=== PATIENT | male | born 1945 | race Caucasian/White ===

== ENCOUNTER → 2018-03-28 10:44 | Outpatient (CLI) | payer MEDICARE, OTHER, SELFPAY ==
[2018-03-28 12:22] LABS: Hematocrit 41.2 % (40-54); Mean Corp Hgb Conc 31.6 g/gl (32-36); Mean Corpuscular Hgb 28.7 pg (27.0-32.0); Mean Corpuscular Volume 90.9 fL (80-94); Platelet Count 163 K/mm3 (150-450); RBC Distribution Width CV 15.5 % (11.6-14.6); RBC Distribution Width SD 51.5 fl (35.1-43.9); Red Blood Count 4.53 M/mm3 (4.6-6.2); White Blood Count 7.1 K/mm3 (4.4-11.0)
[2018-03-28 12:27] LABS: Scan Indicated on CBC? Y/N NO
[2018-03-28 12:33] LABS: Albumin, Serum 3.5 g/dL (3.2-5.0); BUN 29 mg/dL (7-18); BUN/Creat Ratio 16.6 RATIO (10-20); Calcium,Total 8.9 mg/dL (8.5-10.1); Chloride 104 mmol/L (98-107); Creatinine, Serum 1.75 mg/dL (0.70-1.30); EST Glomerular Filtration Rate 41 mL/min (>60); Est Glom Filt Rate - Afr Amer 49 mL/min (>60); Glucose 273 mg/dL (74-106); Magnesium 1.9 mg/dL (1.6-2.6); Phosphorus 3.2 mg/dL (2.5-4.9); Potassium 4.8 mmol/L (3.5-5.1); Sodium Level 139 mmol/L (136-145)
[2018-03-28 12:46] LABS: Microalbumin:Creatinine Ratio 154.6 mg/g CRE (<30 mg/g CRE)
[2018-03-29 08:49] LABS: Vitamin D,25 Hydroxy 79.9 ng/mL (29.95-100.01)
[2018-03-29 08:54] LABS: PTHIN 48.1 pg/mL (18.4-80.1)
== END ==
PROVIDERS: Family Provider Family Medicine; PCP Family Medicine; Visit Provider Internal Medicine Nephrology
DX: N18.3 Chronic kidney disease, stage 3 (moderate) (principal); D63.1 Anemia in chronic kidney disease; E55.9 Vitamin D deficiency, unspecified
CPT/HCPCS: 36415; 80069; 82043; 82306; 82570; 83735; 83970; 85027

== ENCOUNTER → 2018-06-04 15:43 | Outpatient (CLI) | payer MEDICARE, OTHER, SELFPAY ==
--- NOTE | 2018-06-04 15:47 | RAD_ITS ---
STUDY: X-RAY CHEST REASON FOR EXAM: Male, 73 years old. Hypoxia. TECHNIQUE: Frontal and lateral views of the chest. COMPARISON: 03/12/2017. FINDINGS: The lungs are clear and expanded. There is no demonstrated pleural abnormality. There is mild cardiac enlargement. There are sternotomy wires and surgical clips suggesting previous CABG. Normal mediastinum and jairo. Normal visualized pulmonary arteries. There is atherosclerotic calcification of the aortic arch with tortuosity. Normal visualized thoracic spine. Normal visualized ribs, clavicles, and shoulders. There is no demonstrated abnormality of the visualized soft tissue structures of the upper abdomen. RAD/Chest PA and Lateral IMPRESSION: Mild cardiomegaly. No evidence for acute cardiopulmonary pathology. Electronically Signed: Jaime Contreras MD at 2:20 EDT , Service support ,
--- NOTE | 2018-06-04 15:47 | RAD_ITS ---
STUDY: X-RAY - ABDOMEN/PELVIS REASON FOR EXAM: Male, 73 years old. Diarrhea. TECHNIQUE: Two AP supine views of the abdomen and pelvis. COMPARISON: None. FINDINGS: Normal visualized lung bases. There is an unremarkable bowel gas pattern. There is no demonstrated free abdominal air. The visualized liver, spleen and kidneys are grossly normal in size and morphology. There are surgical clips overlying the left side of the abdomen. Normal soft tissue structures. There are diffuse degenerative changes of the visualized lumbar spine. RAD/Abdomen Single View IMPRESSION: Nonspecific bowel gas pattern. Electronically Signed: Jaime Contreras MD at 0:43 EDT , Service support ,
[2018-06-04 17:25] LABS: Absolute Lymphocyte Count 2.14 X10^3/ul (0.83-4.51); Absolute Neutrophil Count 4.8 X10^3/uL (2.0-7.7); Basophil# 0.05 X10^3/uL; Basophil% 0.6 % (0-1); Eosinophil# 0.37 X10^3/uL; Eosinophils% 4.3 % (0-5); Hematocrit 42.4 % (40-54); Hemoglobin 13.6 g/dl (13.0-16.5); Lymphocyte # 2.14 X10^3/ul (4.0); Lymphocyte % 25.1 % (19-41); Mean Corp Hgb Conc 32.1 g/gl (32-36); Mean Corpuscular Hgb 28.6 pg (27.0-32.0); Mean Corpuscular Volume 89.3 fL (80-94); Mean Platelet Vol. 10.3 fl (6.2-12.0); Monocyte# 1.11 X10^3/uL; Neutrophil # 4.82 X10^3/uL (2.7-7.7); Neutrophil % 56.6 % (47-70); Platelet Count 183 K/mm3 (150-450); RBC Distribution Width CV 14.8 % (11.6-14.6); RBC Distribution Width SD 48.2 fl (35.1-43.9); Red Blood Count 4.75 M/mm3 (4.6-6.2); White Blood Count 8.5 K/mm3 (4.4-11.0)
[2018-06-04 17:27] LABS: POSITIVE COUNT NO; POSITIVE DIFFERENTIAL NO; POSITIVE MORPHOLOGY NO
[2018-06-04 17:47] LABS: Hemoglobin A1c 7.3 % (4.2-6.3)
[2018-06-04 17:55] LABS: ALB/GLOB Ratio 0.8 RATIO (0.9-2.4); AST(SGOT) 21 U/L (15-37); Alanine Aminotransfer ALT/SGPT 32 U/L (16-61); Albumin, Serum 3.6 g/dL (3.2-5.0); Alkaline Phosphatase 57 U/L (45-117); Amylase 71 U/L (25-115); Anion Gap 7 (5-15); BUN 34 mg/dL (7-18); BUN/Creat Ratio 19.1 RATIO (10-20); Calcium,Total 9.3 mg/dL (8.5-10.1); Chloride 102 mmol/L (98-107); Creatinine, Serum 1.78 mg/dL (0.70-1.30); EST Glomerular Filtration Rate 40 mL/min (>60); Est Glom Filt Rate - Afr Amer 48 mL/min (>60); Globulin 4.5 g/dL (2.2-4.2); Glucose 74 mg/dL (74-106); Lipase 179 U/L (73-393); Potassium 4.7 mmol/L (3.5-5.1); Protein, Total 8.1 g/dL (6.4-8.2); Sodium Level 136 mmol/L (136-145)
== END ==
PROVIDERS: Family Provider Family Medicine; PCP Family Medicine; Referring Provider Family Medicine; Visit Provider Family Medicine
DX: R19.7 Diarrhea, unspecified (principal); R14.2 Eructation; R05 Cough; R09.02 Hypoxemia; E11.49 Type 2 diabetes mellitus with other diabetic neurological complication
CPT/HCPCS: 36415; 71046; 74018; 80053; 82150; 83036; 83690; 85025; 86140

== ENCOUNTER → 2018-11-05 13:49 | Outpatient (CLI) | payer MEDICARE, OTHER, SELFPAY ==
[2018-10-24 14:10] VITALS: BMI 32.4
--- NOTE | 2018-11-05 13:50 | ART_ITS ---
Reason For Study: PVD Left Segmental Pressures Left brachial= 143mmHg. Left posterior tibial artery = 189mmHg. Left dorsalis pedis artery = 120mmHg. Left digit = 103 mmHg. The left dorsalis pedis waveforms are biphasic. The left posterior tibial artery waveforms are triphasic. Right Segmental Pressures Right brachial= 148mmHg. Right posterior tibial artery = 175mmHg. Right dorsalis pedis artery = 128mmHg. Right digit = 92 mmHg. The right dorsalis pedis waveforms are biphasic. The right posterior tibial artery waveforms are triphasic. Indices The right ankle brachial index by the dorsalis pedis is .86. The right ankle brachial index by the posterior tibial artery is 1.18. The right digital-brachial index is .62. The left ankle brachial index by the dorsalis pedis is .81. The left ankle brachial index by the posterior tibial artery is 1.28. The left digital-brachial index is .7. Interpretation Summary 1. Bilateral triphasic flow and no signifiacnt occlussive disease t rest with martin 1.18/.128 2. No significant small vessel disease with dbi 0.62/0.7. Ordering Physician: Bartolome Diaz Performed By: DACIA GARCIA T
== END ==
PROVIDERS: Family Provider Family Medicine; PCP Family Medicine; Referring Provider Internal Medicine Cardiovascular Disease; Visit Provider Internal Medicine Cardiovascular Disease
DX: I73.9 Peripheral vascular disease, unspecified (principal)
CPT/HCPCS: 93923

== ENCOUNTER → 2018-12-10 09:46 | Outpatient (CLI) | payer MEDICARE, OTHER, SELFPAY ==
[2018-10-24 14:10] VITALS: BMI 32.4
[2018-12-10 11:18] LABS: Hematocrit 43.4 % (40-54); Hemoglobin 14.3 g/dl (13.0-16.5); Mean Corp Hgb Conc 32.9 g/gl (32-36); Mean Corpuscular Hgb 29.2 pg (27.0-32.0); Mean Corpuscular Volume 88.8 fL (80-94); Mean Platelet Vol. 10.1 fl (6.2-12.0); Platelet Count 195 K/mm3 (150-450); RBC Distribution Width CV 15.6 % (11.6-14.6); RBC Distribution Width SD 49.8 fl (35.1-43.9); Red Blood Count 4.89 M/mm3 (4.6-6.2); White Blood Count 9.2 K/mm3 (4.4-11.0)
[2018-12-10 11:20] LABS: Scan Indicated on CBC? Y/N NO
[2018-12-10 11:35] LABS: Microalbumin:Creatinine Ratio 201.2 mg/g CRE (<30 mg/g CRE); Protein, Urine (Random) 46.8 mg/dL (<11.9); Protein:Creat Ratio 485 mg/g CRE (0-200)
[2018-12-10 11:48] LABS: Albumin, Serum 3.7 g/dL (3.2-5.0); BUN 31 mg/dL (7-18); BUN/Creat Ratio 19.9 RATIO (10-20); Calcium,Total 9.3 mg/dL (8.5-10.1); Chloride 105 mmol/L (98-107); Creatinine, Serum 1.56 mg/dL (0.70-1.30); EST Glomerular Filtration Rate 47 mL/min (>60); Est Glom Filt Rate - Afr Amer 56 mL/min (>60); Glucose 174 mg/dL (74-106); Phosphorus 3.2 mg/dL (2.5-4.9); Potassium 4.7 mmol/L (3.5-5.1); Sodium Level 138 mmol/L (136-145)
[2018-12-10 12:00] LABS: AST(SGOT) 29 U/L (15-37); Alanine Aminotransfer ALT/SGPT 38 U/L (16-61); Albumin, Serum 3.6 g/dL (3.2-5.0); Alkaline Phosphatase 48 U/L (45-117); Bilirubin, Direct 0.07 mg/dL (0.00-0.30); Cholesterol 125 mg/dL (200); Globulin 4.4 g/dL (2.2-4.2); High Density Lipoprotein 32 mg/dL; Triglycerides 270 mg/dL; Very Low Density Lipoprotein 54 mg/dL (5-40)
[2018-12-10 12:15] LABS: Vitamin D,25 Hydroxy 30.2 ng/mL (29.95-100.01)
[2018-12-10 12:16] LABS: PTHIN 69.7 pg/mL (18.4-80.1)
[2018-12-10 13:37] LABS: Color, Urine Yellow (Yellow); Glucose, Dipstick Normal (Normal); Ketone-Dipstick Negative (Negative); Leukocyte Esterase-Dipstick Negative /ul (Negative); Nitrite-Dipstick Negative (Negative); Occult Blood-Urine Negative /ul (Negative); Protein-Dipstick 30 mg/dl (Negative); Urine Bilirubin Dipstick Negative (Negative); Urine Clarity Clear (Clear); Urine Urobilinogen Normal (Normal)
== END ==
PROVIDERS: Internal Medicine Nephrology; Family Provider Family Medicine; PCP Family Medicine; Referring Provider Internal Medicine Cardiovascular Disease; Visit Provider Internal Medicine Cardiovascular Disease
DX: N18.3 Chronic kidney disease, stage 3 (moderate) (principal); D63.1 Anemia in chronic kidney disease; E55.9 Vitamin D deficiency, unspecified; I25.10 Atherosclerotic heart disease of native coronary artery without angina pectoris; E78.5 Hyperlipidemia, unspecified
CPT/HCPCS: 36415; 80061; 80069; 80076; 81002; 82043; 82306; 82570; 83970; 84156; 85027

== ENCOUNTER → 2019-07-11 14:46 | Outpatient (CLI) | payer MEDICARE, OTHER, SELFPAY ==
[2019-06-27 11:22] VITALS: BMI 32.3
--- NOTE | 2019-07-11 14:48 | ECHOCS_ITS ---
Reason For Study: S/P CABG Procedure This was a 2D Doppler, Color Flow transthoracic echocardiogram. The study was technically difficult. Due to body habitus. Contrast injection was performed. Exam performed in department. Left Ventricle Normal size and thickness. The estimated ejection fraction is 65 %. Stage 1 diastolic dysfunction. No regional wall motion abnormalities noted. Right Ventricle Normal size and thickness. Normal systolic function. Atria The left atrium is moderately enlarged. The right atrium is mildly enlarged. Normal atrial septum. Mitral Valve Mild diffuse mitral valve thickening. Severe mitral annular calcification extending into the posterior leaflet. Trivial mitral valve insufficiency. Tricuspid Valve Normal tricuspid valve. Mild (1+) tricuspid valve insufficiency. Right ventricular systolic pressure estimated to be 36 mmHg. Aortic Valve Normal aortic valve. Trisinus/trileaflet aortic valve. Pulmonic Valve The pulmonic valve is not well visualized. Great Vessels Normal aortic root. Normal arch. Normal inferior vena cava. Inferior vena cava collapse with sniff. Pericardium/Pleural No pericardial effusion. Medication 22 gauge I.V. with prn adaptor inserted into right arm. Diluted definity 6.0ml given slow IV push to enhance endocardial definition. MMode/2D Measurements & Calculations LVIDd: 5.3 cm IVSd: 1.1 cm LAV(MOD-bp): 100.9 ml LVIDs: 3.4 cm LVPWd: 1.1 cm FS: 35.3 % LAV(MOD-bp) Indexed: 51.6 ml/m2 LAV(MOD-sp2): 85.5 ml LAV(MOD-sp4): 109.5 ml LA dimension(2D): 3.9 cm LA A4 area: 29.5 cm2 RA A4 area: 21.6 cm2 Time Measurements MV dec time: 0.23 sec Doppler Measurements & Calculations MV E max manav: 132.8 cm/sec Lat Peak E' Manav: 4.3 cm/sec Med Peak E' Manav: 3.1 cm/sec MV A max manav: 94.5 cm/sec E/E' lat: 30.7 E/E' med: 42.9 MV E/A: 1.4 Ao V2 max: 121.9 cm/sec LV V1 max: 82.8 cm/sec PA V2 max: 129.8 cm/sec Ao max P.9 mmHg LV V1 max P.7 mmHg PI end-d manav: 87.3 cm/sec TR max manav: 280.1 cm/sec TR max P.4 mmHg Interpretation Summary The estimated ejection fraction is 65 %. Stage 1 diastolic dysfunction. The left atrium is moderately enlarged. The right atrium is mildly enlarged. Trivial mitral valve insufficiency. Mild (1+) tricuspid valve insufficiency. Right ventricular systolic pressure estimated to be 36 mmHg. Compared to echo report dated 03/16/2017, no appreciable changes noted. The study was technically difficult. Contrast injection was performed. Ordering Physician: Bartolome Diaz Referring Physician: Luis Johnson Performed By: Irene Kellogg RDCS, RVT
== END ==
PROVIDERS: Family Provider Family Medicine; PCP Family Medicine; Referring Provider Internal Medicine Cardiovascular Disease; Visit Provider Internal Medicine Cardiovascular Disease
DX: I25.10 Atherosclerotic heart disease of native coronary artery without angina pectoris (principal)
CPT/HCPCS: 93306; Q9957; A4216; C8929

== ENCOUNTER → 2019-07-21 13:16 | Outpatient (CLI) | payer MEDICARE, OTHER, SELFPAY ==
[2019-06-27 11:22] VITALS: BMI 32.3
--- NOTE | 2019-07-21 13:18 | STEWCON_ITS ---
Reason For Study: CAD Stress Results Protocol: Dobutamine Stress With Definity Maximum Predicted HR: 146 bpm Target HR: 124 bpm % Maximum Predicted HR: 86 % DurationHeart Rate Stage (mm:ss) (bpm) BP Comment Baseline 53 132/73No Chest Pain; 5 ML Diluted Definity Given DSE 10 MCG 3:22 57 130/66No Chest Pain DSE 20 MCG 3:00 80 135/65No Chest Pain DSE 30 MCG 3:00 96 137/53No Chest Pain DSE 40 MCG 2:32 126 130/54Mild Chest Pressure; Atropine 0.25 MG IVP Recovery 70 135/62No Chest Pain Stress Duration: 11:54 mm:ss Maximum Stress HR: 126 bpm METS: 1 Baseline Echocardiogram Findings The estimated ejection fraction is 65 %. Stress Echo Wall motion Data Resting WM Intermediate WM Stress WM Resting Wall Motion Wall Motion Stress No regional wall motion No regional wall motion abnormalities noted. abnormalities noted. EKG Data The baseline ECG displays normal sinus rhythm. The baseline ECG displays diffuse abnormal ST segments. The patient was titrated from 10 mcg to a maximum of 40 mcg of dobutamine during the stress. The maximum heart rate attained was 142 beats per minute. This was 97% of maximum predicted heart rate. At peak infusion, upsloping ST changes only were noted, which did not meet the criteria for ischemia. No clinical angina was noted. Interpretation Summary The estimated ejection fraction is 65 %. Normal, adequate, dobutamine echocardiogram. Negative for ischemia by EKG and echocardiographic criteria. No anginal symptoms noted. Rare PAC and PVC noted. Patient had baseline inferior lateral ST segment depression which persisted into the infusion but did not reach criteria for ischemia. No associated wall motion abnormalities noted. Appropriate blood pressure response for dobutamine. Test terminated due to the attainment target heart rate. Decreased sensitivity due to poor echo windows requiring Definity agent. Patient tolerated the procedure well. No complications. The study was technically difficult. Contrast injection was performed. Ordering Physician: Bartolome Diaz Referring Physician: Luis Johnson D.O. Performed By: Manisha Rodriguez, NARESH, RVT
== END ==
PROVIDERS: Family Provider Family Medicine; PCP Family Medicine; Referring Provider Internal Medicine Cardiovascular Disease; Visit Provider Internal Medicine Cardiovascular Disease
DX: Z95.1 Presence of aortocoronary bypass graft (principal); E78.5 Hyperlipidemia, unspecified; I10 Essential (primary) hypertension; E11.42 Type 2 diabetes mellitus with diabetic polyneuropathy
CPT/HCPCS: 93017; 93350; J7040; Q9957; A4216; C8928

== ENCOUNTER → 2019-09-19 13:34 | Outpatient (CLI) | payer MEDICARE, OTHER, SELFPAY ==
[2019-06-27 11:22] VITALS: BMI 32.3
[2019-09-19 13:52] LABS: Bacteria 0 SEEN /hpf (None Seen); Mucous, Urine 0 SEEN /hpf (<or=2+); Red Blood Cells-Urine 0 SEEN /hpf (0-5); Squamous Epithelial Cells - UA 0 SEEN /hpf (0-5); White Blood Cells 0 SEEN /hpf (0-5)
[2019-09-19 15:35] LABS: Hematocrit 40.5 % (40-54); Hemoglobin 12.3 g/dL (13.0-16.5); Mean Corp Hgb Conc 30.4 g/dL (32-36); Mean Corpuscular Hgb 27.5 pg (27.0-32.0); Mean Corpuscular Volume 90.4 fL (80-94); Platelet Count 166 K/mm3 (150-450); RBC Distribution Width CV 15.5 % (11.6-14.6); RBC Distribution Width SD 50.7 fl (35.1-43.9); Red Blood Count 4.48 M/mm3 (4.6-6.2); White Blood Count 8.2 K/mm3 (4.4-11.0)
[2019-09-19 15:39] LABS: Color, Urine Yellow (Yellow); Glucose, Dipstick 50 mg/dl (Normal); Ketone-Dipstick Negative (Negative); Leukocyte Esterase-Dipstick Negative /ul (Negative); Nitrite-Dipstick Negative (Negative); Occult Blood-Urine Negative /ul (Negative); Protein-Dipstick 30 mg/dl (Negative); Specific Gravity, Urine 1.015 (1.002-1.030); Urine Bilirubin Dipstick Negative (Negative); Urine Clarity Clear (Clear); Urine Urobilinogen Normal (Normal)
[2019-09-19 15:50] LABS: Albumin, Serum 3.7 g/dL (3.2-5.0); BUN 33 mg/dL (7-18); BUN/Creat Ratio 17.3 RATIO (10-20); Calcium,Total 9.2 mg/dL (8.5-10.1); Chloride 104 mmol/L (98-107); Creatinine, Serum 1.91 mg/dL (0.70-1.30); EST Glomerular Filtration Rate 37 mL/min (>60); Est Glom Filt Rate - Afr Amer 44 mL/min (>60); Glucose 197 mg/dL (74-106); Phosphorus 3.2 mg/dL (2.5-4.9); Sodium Level 138 mmol/L (136-145)
[2019-09-19 15:55] LABS: Microalbumin:Creatinine Ratio 259.4 mg/g CRE (<30 mg/g CRE); Protein, Urine (Random) 52.3 mg/dL (<11.9); Protein:Creat Ratio 425 mg/g CRE (0-200)
[2019-09-19 16:06] LABS: Vitamin D,25 Hydroxy 43.7 ng/mL (29.95-100.01)
[2019-09-19 16:17] LABS: PTHIN 96.1 pg/mL (18.4-80.1)
== END ==
PROVIDERS: PCP Family Medicine; Referring Provider Internal Medicine Nephrology; Visit Provider Internal Medicine Nephrology
DX: N18.3 Chronic kidney disease, stage 3 (moderate) (principal); D63.1 Anemia in chronic kidney disease; E55.9 Vitamin D deficiency, unspecified
CPT/HCPCS: 36415; 80069; 81001; 82043; 82306; 82570; 83970; 84156; 85027

== ENCOUNTER 2019-12-17 14:00 | Outpatient (RCR) | payer MEDICARE, OTHER, SELFPAY ==
[2019-06-27 11:22] VITALS: BMI 32.3
[2019-11-19 15:08] VITALS: BP 141/59; PULSE 71; RESP 20; TEMP 36.8; BMI 32.3
[2019-11-19 16:54] LABS: Absolute Lymphocyte Count 1.21 X10^3/uL (0.83-4.51); Absolute Neutrophil Count 6.1 X10^3/uL (2.0-7.7); Basophil# 0.04 X10^3/uL; Basophil% 0.5 % (0-1); Eosinophil# 0.29 X10^3/uL; Eosinophils% 3.4 % (0-5); Hematocrit 38.8 % (40-54); Hemoglobin 12.1 g/dL (13.0-16.5); Lymphocyte # 1.21 X10^3/ul (4.0); Lymphocyte % 14.1 % (19-41); Mean Corp Hgb Conc 31.2 g/dL (32-36); Mean Corpuscular Hgb 27.1 pg (27.0-32.0); Mean Platelet Vol. 10.9 fl (6.2-12.0); Monocyte# 0.85 X10^3/uL; Monocyte% 9.9 % (0-10); NRBC Flagged by Analyzer 0 % (0-5); Neutrophil # 6.12 X10^3/uL (2.7-7.7); Neutrophil % 71.4 % (47-70); Platelet Count 152 K/mm3 (150-450); RBC Distribution Width CV 15.9 % (11.6-14.6); RBC Distribution Width SD 50.1 fl (35.1-43.9); Red Blood Count 4.46 M/mm3 (4.6-6.2); White Blood Count 8.6 K/mm3 (4.4-11.0)
[2019-11-19 17:08] LABS: Erythrocyte Sedimentation Rate 70 mm/hr (0-20)
[2019-11-19 17:10] LABS: ALB/GLOB Ratio 0.8 RATIO (0.9-2.4); AST(SGOT) 15 U/L (15-37); Alanine Aminotransfer ALT/SGPT 22 U/L (16-61); Albumin, Serum 3.6 g/dL (3.2-5.0); Alkaline Phosphatase 57 U/L (45-117); Anion Gap 6 (5-15); BUN 38 mg/dL (7-18); Calcium,Total 9.1 mg/dL (8.5-10.1); Chloride 102 mmol/L (98-107); Creatinine, Serum 1.65 mg/dL (0.70-1.30); EST Glomerular Filtration Rate 44 mL/min (>60); Est Glom Filt Rate - Afr Amer 53 mL/min (>60); Estimated Creatinine Clearance 35.44 ml/min; Globulin 4.4 g/dL (2.2-4.2); Glucose 219 mg/dL (74-106); Potassium 5.1 mmol/L (3.5-5.1); Sodium Level 136 mmol/L (136-145)
--- NOTE | 2019-11-19 23:20 | PCM.WC.PN ---
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 Code(s): L97.513 - Non-pressure chronic ulcer of other part of right foot with necrosis of muscle (2) Peripheral vascular occlusive disease Status: Chronic Code(s): I73.9 - Peripheral vascular disease, unspecified (3) Chronic kidney disease, stage 3 Status: Chronic Code(s): N18.3 - Chronic kidney disease, stage 3 (moderate) (4) Type 2 diabetes mellitus with diabetic polyneuropathy Status: Chronic Code(s): E11.42 - Type 2 diabetes mellitus with diabetic polyneuropathy (5) Delayed wound healing Status: Chronic Code(s): T14.8 - Other injury of unspecified body region (6) Malnutrition Status: Chronic Code(s): E46 - Unspecified protein-calorie malnutrition Type of Wound Date of Service: 11/19/19 Chief Complaint: Foot ulcer History of Wound: This 74-year-old male follows up for right foot ulcer and his bunion site. It was noted with an onset of approximately 3-15-2020. He denies trauma or development of claudication symptoms. ` He denies fevers, chills, nausea, vomiting, diarrhea, loss of appetite. He denies drainage or redness. He obtained his x-rays that diabetic shoes and is concerned they are rubbing on this recently healed site. He is with his today. Progress of Wound: Stable - Physical Exam Vital Signs Temp Pulse Resp BP 98.2 F 71 20 H 141/59 H 11/19/19 15:08 11/19/19 15:08 11/19/19 15:08 11/19/19 15:08 General: Alert, Oriented x3, Cooperative, No apparent distress HEENT: Atraumatic Extremities: No cyanosis, Capillary Refill Less than 3 Seconds, No Calf Tenderness, Diminished Peripheral Pulses, Edema Skin: Ulcer/ Wound - No purulence, erythema, streaking, infection. There is necrotic capsule at the first metatarsal head area. Odor has reduced significantly. His adjacent skin is hairless and atrophic and is dysvascular in appearance Wound Measurements and Assessment WC - Nurse 1 - General Ulcer Measurement Start: 11/19/19 15:08 Freq: Status: Active Protocol: Activity Type Activity Date Activity User E-Sign Co-Sign Detail Recorded Client Recorded Date Recorded By Document 11/19/19 15:08 MW [id number] 11/19/19 15:21 MW 11/19/19 15:08 Wound Center Nurse 1 [Ulcer Assessment] #3 right hallux -Combined with other wound No -Current Size (cm) - Length 1.6 -Current Size (cm) - Width 1.4 -Current Size (cm) - Depth 0.2 -Total Square Cm 2.24 -Date of Last Picture (Recall this 11/19/19 field) -Photo Taken Yes -Epithelialization None Present -Tunneling No -Undermining/Tunneling No -Circular Undermining No -Exudate Amt Medium -Exudate Type Serosanguineous -Wound Margin Flat & Intact -Granulation Amt None Present (0 %) -Granulation Quality N/A -Slough/Fibrin Yes -Necrosis Amt Large (67-100%) -Necrotic Tissue Type Adherent Slough -Structure Exposed N/A -Texture (Anna-wound Skin Appearance) Assessed,Callus -Moisture (Anna-wound Skin Appearance Assessed,Dry/ ) Scaly -Color (Anna-wound Skin Appearance) No Abnormality, Assessed -Temperature (Anna-wound Skin No Abnormality Appearance) (Pt Warm) -Tenderness on Palpation (Anna-wound Yes Skin Appearance) -Ulcer Cleansing Rinsed/ Irrigated with Saline -Foul Odor after Cleansing Yes -Anesthetic Used 4% Lidocaine Solution [Edema Assessment] -Lower Limb Edema Present Yes -Right Calf (cm) 37.0 -Right Ankle (cm) 21.5 -Left Calf (cm) 36.0 -Left Ankle (cm) 21.0 WC - Nurse 2 - General Ulcer CM Notes Start: 11/19/19 15:08 Freq: Status: Active Protocol: Activity Type Activity Date Activity User E-Sign Co-Sign Detail Recorded Client Recorded Date Recorded By Document 11/19/19 15:37 [id number] 11/19/19 15:40 11/19/19 15:37 Wound Center Nurse 2 [Procedure/Treatment] #3 right hallux -Time 15:39 -Correct Patient Yes -Correct Side, Site, Position Yes -Correct Procedure Yes -Procedure Performed Yes -Type of Procedure Debridement -Clinical Debridement Muscle -Post Debridement Size (cm) - Length 1.6 -Post Debridement Size (cm) - Width 1.5 -Post Debridement Size (cm) - Depth 0.3 -Total Square Cm 2.40 -Wound/Ulcer Outcome Not Healed -Ulcer Cleansing Rinsed/ Irrigated with Saline -Foul Odor after Cleansing No -Bioengineered Tissue No -Bleeding Controlled with Pressure -Offloading Yes -Type of Offloading Surgical Shoe -Treatment Response Procedure Tolerated Well [See Physician Procedure note for Specifics] Pain Scale: 0-10 Numeric [Pain] -Is Patient Pain Free? Yes Musculoskeletal: No Tenderness to Palpation of Joints or Extremities, Muscle Wasting, Tenderness - Mild tenderness with wound manipulation Neurological: - - Lack of normal epicritic sensation consistent with neuropathy status Psych/Mental Status: Normal Affect, Appropriate Debridement Note Post-Debridement Measurements/Treatment WC - Nurse 2 - General Ulcer CM Notes Start: 11/19/19 15:08 Freq: Status: Active Protocol: Activity Type Activity Date Activity User E-Sign Co-Sign Detail Recorded Client Recorded Date Recorded By Document 11/19/19 15:37 DORA [id number] 11/19/19 15:40 DORA 11/19/19 15:37 Wound Center Nurse 2 #3 right hallux -Time 15:39 -Correct Patient Yes -Correct Side, Site, Position Yes -Correct Procedure Yes -Procedure Performed Yes -Type of Procedure Debridement -Clinical Debridement Muscle -Post Debridement Size (cm) - Length 1.6 -Post Debridement Size (cm) - Width 1.5 -Post Debridement Size (cm) - Depth 0.3 -Total Square Cm 2.40 -Wound/Ulcer Outcome Not Healed -Ulcer Cleansing Rinsed/ Irrigated with Saline -Foul Odor after Cleansing No -Bioengineered Tissue No -Bleeding Controlled with Pressure -Offloading Yes -Type of Offloading Surgical Shoe -Treatment Response Procedure Tolerated Well Pain Scale: 0-10 Numeric Is Patient Pain Free? Yes Wound debrided: medial forefoot Laterality: Right Wound Grade/Stage: grade 2 Type of Debridement: Excisional debridement Anesthesia Used: 5% Lidocaine Gel Depth: in the subcutaneous layer, to muscle Percentage of wound debrided: 100 Instrument Used: #15 blade Tissue Removed: fibrous, devitalized subcutaneous, biofilm, slough Severity: Fat Layer Exposed Amount of bleeding with debridement: Mild Bleeding Controlled with: Pressure Patient tolerated procedure well Assessment/Plan Assessment: Right foot ulcer with muscle and capsular tissue exposed. diabetes with neuropathy. vascular disease. malnutrition. Cellulitis resolving Plan: I reviewed and discussed this case with the patient. Subcutaneous and capsular/muscle tissue excisional debridement was performed with a 15 blade scalpel as noted in the clinical panel. He is advised to continue Santyl application daily applied a nickel thickness. To keep pressure off the site. He already has a surgical shoe and proper use of straps to avoid direct pressure on the site were reviewed again this afternoon. His x-rays were reviewed last week at the [facility] which did not demonstrate any osseous destruction, foreign body, or soft tissue emphysema. Lab work was ordered and was reviewed after clinic with a white blood cell count of 8.6 and sedimentation rate of 70. No other gross abnormalities were noted. He was advised he does have some necrotic devitalized tissue and the weekly debridements and Santyl use will help improve this. There is no systemic or lesley local signs of infection however the devitalized tissue is a concern. This to be monitored closely. Advanced imaging or further work-up may be warranted at future visits. It is also noted he has a history of vascular disease with occlusive disease identified even with his updated noninvasive vascular studies performed in early September 2019. I will request Dr. Calvillo's follow-up visit notes and plan if the patient did follow-up. Patient was advised to continue to follow-up with vascular specialist as advised and he relates he is not sure what he is supposed to do at this time. To follow-up with the wound healing center in 1 week or call sooner if he has any questions, concerns, or deterioration in status or development of infection.
[2019-11-26 14:30] VITALS: BP 146/59; PULSE 59; RESP 18; TEMP 36.4; BMI 32.3
--- NOTE | 2019-11-26 15:16 | PN.PCM_ITS ---
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 Current Visit: Yes Code(s): L97.513 - Non-pressure chronic ulcer of other part of right foot with necrosis of muscle (2) Peripheral vascular occlusive disease Status: Chronic Current Visit: Yes Code(s): I73.9 - Peripheral vascular disease, unspecified (3) Chronic kidney disease, stage 3 Status: Chronic Current Visit: Yes Code(s): N18.3 - Chronic kidney disease, stage 3 (moderate) (4) Type 2 diabetes mellitus with diabetic polyneuropathy Status: Chronic Current Visit: Yes Code(s): E11.42 - Type 2 diabetes mellitus with diabetic polyneuropathy (5) Delayed wound healing Status: Chronic Current Visit: Yes Code(s): T14.8 - Other injury of unspe cified body region (6) Malnutrition Status: Chronic Current Visit: Yes Code(s): E46 - Unspecified protein- calorie malnutrition Type of Wound Date of Service: 11/26/19 Chief Complaint: Foot ulcer History of Wound: This 74-year-old male follows up for right foot ulcer and his bunion site. It was noted with an onset of approximately 315-2019. He denies trauma or development of claudication symptoms. ` He denies fevers, chills, nausea, vomiting, diarrhea, loss of appetite. He denies drainage or redness. He obtained his x-rays that diabetic shoes and is concerned they are rubbing on this recently healed site. He also obtain updated labs and would like to review the results today. It is noted he is seeing Dr. Calvillo in the past and I am suspecting he missed a follow-up visit. His family member reports he has not followed up at least for half of the year. He is with his family member today. Progress of Wound: Improving quality - Physical Exam Vital Signs Temp Pulse Resp BP 97.5 F L 59 L 18 146/59 H 11/26/19 14:30 11/26/19 14:30 11/26/19 14:30 11/26/19 14:30 General: Alert, Oriented x3, Cooperative, No apparent distress Extremities: No cyanosis, Capillary Refill Less than 3 Seconds, No Calf Tenderness, Diminished Peripheral Pulses, Edema Skin: Ulcer/ Wound - No purulence, erythema, streaking, odor, infection. There is exposed devitalized capsular muscle tissue. There is no longer any eschar. There is no probe to bone or joint. The adjacent skin is hairless and atrophic Wound Measurements and Assessment WC - Nurse 1 - General Ulcer Measurement Start: 11/19/19 15:08 Freq: Status: Active Protocol: Activity Type Activity Date Activity User E-Sign Co-Sign Detail Recorded Client Recorded Date Recorded By Document 11/26/19 14:30 RB [id number] 11/26/19 14:38 RB 11/26/19 14:30 Wound Center Nurse 1 [Ulcer Assessment] #3 right hallux -Combined with other wound No -Current Size (cm) - Length 1.5 -Current Size (cm) - Width 1.3 -Current Size (cm) - Depth 0.1 -Total Square Cm 1.95 -Tunneling No -Undermining/Tunneling No -Circular Undermining No -Exudate Amt Small -Exudate Type Serosanguineous -Wound Margin Thickened -Granulation Amt Medium (34-66%) -Granulation Quality [place] -Slough/Fibrin Yes -Necrosis Amt Small (1-33%) -Necrotic Tissue Type Adherent Slough -Structure Exposed N/A -Texture (Anna-wound Skin Appearance) Assessed,Callus -Moisture (Anna-wound Skin Appearance Assessed ) -Color (Anna-wound Skin Appearance) Assessed -Temperature (Anna-wound Skin No Abnormality Appearance) (Pt Warm) -Tenderness on Palpation (Anna-wound No Skin Appearance) -Ulcer Cleansing Wound Cleanser -Foul Odor after Cleansing No -Anesthetic Used 5% Lidocaine Gel WC - Nurse 2 - General Ulcer CM Notes Start: 11/19/19 15:08 Freq: Status: Active Protocol: Activity Type Activity Date Activity User E-Sign Co-Sign Detail Recorded Client Recorded Date Recorded By Document 11/26/19 14:53 [email or web address] [id number] 11/26/19 14:55 11/26/19 14:53 Wound Center Nurse 2 [Procedure/Treatment] -Time 14:54 -Correct Patient Yes -Correct Side, Site, Position Yes -Correct Procedure Yes -Procedure Performed Yes -Type of Procedure Debridement -Clinical Debridement Subcutaneous -Post Debridement Size (cm) - Length 1.8 -Post Debridement Size (cm) - Width 1.4 -Post Debridement Size (cm) - Depth 0.3 -Total Square Cm 2.52 -Wound/Ulcer Outcome Not Healed -Ulcer Cleansing Rinsed/ Irrigated with Saline -Foul Odor after Cleansing No -Bioengineered Tissue No -Bleeding Controlled with Pressure -Offloading Yes -Type of Offloading Surgical Shoe -Treatment Response Procedure Tolerated Well [See Physician Procedure note for Specifics] Pain Scale: 0-10 Numeric [Pain] -Is Patient Pain Free? Yes Musculoskeletal: No Tenderness to Palpation of Joints or Extremities, Muscle Wasting, - - Slight bunion formation prominent medial eminence of the first metatarsal head Neurological: - - Lack of epicritic sensation light touch is consistent with neuropathy status Psych/Mental Status: Normal Affect, Appropriate Debridement Note Post-Debridement Measurements/Treatment WC - Nurse 2 - General Ulcer CM Notes Start: 11/19/19 15:08 Freq: Status: Active Protocol: Activity Type Activity Date Activity User E-Sign Co-Sign Detail Recorded Client Recorded Date Recorded By Document 11/19/19 15:37 [id number] 11/19/19 15:40 Document 11/26/19 14:53 [id number] 11/26/19 14:55 11/19/19 11/26/19 15:37 14:53 Wound Center Nurse 2 #3 right hallux -Time 15:39 14:54 -Correct Patient Yes Yes -Correct Side, Site, Position Yes Yes -Correct Procedure Yes Yes -Procedure Performed Yes Yes -Type of Procedure Debridement Debridement -Clinical Debridement Muscle Subcutaneous -Post Debridement Size (cm) - Length 1.6 1.8 -Post Debridement Size (cm) - Width 1.5 1.4 -Post Debridement Size (cm) - Depth 0.3 0.3 -Total Square Cm 2.40 2.52 -Wound/Ulcer Outcome Not Healed Not Healed -Ulcer Cleansing Rinsed/ Rinsed/ Irrigated with Irrigated with Saline Saline -Foul Odor after Cleansing No No -Bioengineered Tissue No No -Bleeding Controlled with Pressure Pressure -Offloading Yes Yes -Type of Offloading Surgical Shoe Surgical Shoe -Treatment Response Procedure Procedure Tolerated Well Tolerated Well Pain Scale: 0-10 Numeric Is Patient Pain Free? Yes Yes Wound debrided: medial foot Laterality: Right Wound Grade/Stage: grade 2 Type of Debridement: Excisional debridement Anesthesia Used: 5% Lidocaine Gel Depth: in the subcutaneous layer, to muscle Percentage of wound debrided: 100 Instrument Used: #15 blade Tissue Removed: fibrous, devitalized subcutaneous, biofilm, slough Severity: Fat Layer Exposed Amount of bleeding with debridement: Mild Bleeding Controlled with: Pressure Patient tolerated procedure well Assessment/Plan Active Problems (Last Reviewed 06/12/19 @ 11:08 by Carly Mckeon) Ulcer of right foot with necrosis of muscle (Chronic) Peripheral vascular occlusive disease (Chronic) Chronic kidney disease, stage 3 (Chronic) Type 2 diabetes mellitus with diabetic polyneuropathy (Chronic) Delayed wound healing (Chronic) Malnutrition (Chronic) Assessment: Right foot ulcer with muscle and capsular tissue exposed. diabetes with neuropathy. vascular disease. malnutrition. Cellulitis resolving Plan: I reviewed and discussed this case with the patient. Subcutaneous and capsular/muscle tissue excisional debridement was performed with a 15 blade scalpel as noted in the clinical panel. He is advised to continue Santyl application daily applied a nickel thickness. To keep pressure off the site. He already has a surgical shoe and proper use of straps to avoid direct pressure on the site were reviewed again this afternoon. His x-rays were reviewed previously at the [facility] which did not demonstrate any osseous destruction, foreign body, or soft tissue emphysema. Lab work was reviewed after clinic with a white blood cell count of 8.6, C-reactive protein of 17, and sedimentation rate of 70. Trends will be monitored and this demonstrates an inflammatory process is in place and suggests her supports of malnutrition as well. No other gross abnormalities were noted. He was advised he does have some necrotic devitalized tissue and the weekly debridements and Santyl use will help improve this. There is no systemic or lesley local signs of infection however the devitalized tissue is a concern. This to be monitored closely. Advanced imaging or further work-up may be warranted at future visits. It is also noted he has a history of vascular disease with occlusive disease identified even with his updated noninvasive vascular studies performed in early September 2019. I will request Dr. Calvillo's follow-up visit notes and plan if the patient did follow-up. An updated referral was provided it appears he has missed some follow-up sessions. Now that he has tissue loss and is high risk for limb loss I recommend he get back on track with this. To follow-up with the wound healing center in 1 week or call sooner if he has any questions, concerns, or deterioration in status or development of infection. I did also offer him telehealth follow-up options next week due to the coronavirus pandemic . He will asked to return to clinic in person and follow the necessary center precautions. He will benefit from serial debridement during this time.
[2019-12-03 15:37] VITALS: BP 137/82; PULSE 67; RESP 18; TEMP 36.1; BMI 32.3
--- NOTE | 2019-12-03 16:06 | PN.PCM_ITS ---
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 Code(s): L97.513 - Non-pressure chronic ulcer of other part of right foot with necrosis of muscle (2) Peripheral vascular occlusive disease Status: Chronic Code(s): I73.9 - Peripheral vascular disease, unspecified (3) Chronic kidney disease, stage 3 Status: Chronic Code(s): N18.3 - Chronic kidney disease, stage 3 (moderate) (4) Type 2 diabetes mellitus with diabetic polyneuropathy Status: Chronic Code(s): E11.42 - Type 2 diabetes mellitus with diabetic polyneuropathy (5) Delayed wound healing Status: Chronic Code(s): T14.8 - Other injury of unspecified body region (6) Malnutrition Status: Chronic Code(s): E46 - Unspecified protein-calorie malnutrition Type of Wound Date of Service: 12/03/19 Chief Complaint: Foot ulcer History of Wound: This 74-year-old male follows up for right foot ulcer and his bunion site. It was noted with an onset of approximately 3-15-2020. He denies trauma or development of claudication symptoms. He denies fevers, chills, nausea, vomiting, diarrhea, loss of appetite. He denies drainage or redness. Progress of Wound: Improving quality - Physical Exam Vital Signs Temp Pulse Resp BP 97 F L 67 18 137/82 H 12/03/19 15:37 12/03/19 15:37 12/03/19 15:37 12/03/19 15:37 General: Alert, Oriented x3, Cooperative, No apparent distress HEENT: Atraumatic Extremities: No cyanosis, Capillary Refill Less than 3 Seconds, No Calf Tenderness, Diminished Peripheral Pulses, Edema Skin: Ulcer/ Wound - The ulcer base is improved. There is no purulence, erythema, streaking, odor, infection, eschar noted. The adjacent skin is hairless and atrophic. There is granulation tissue formation in the ulcer bed and healthy capsular tissue to the medial eminence of the first metatarsal head Wound Measurements and Assessment WC - Nurse 1 - General Ulcer Measurement Start: 11/19/19 15:08 Freq: Status: Active Protocol: Activity Type Activity Date Activity User E-Sign Co-Sign Detail Recorded Client Recorded Date Recorded By Document 12/03/19 15:37 RB [id number] 12/03/19 15:42 RB 12/03/19 15:37 Wound Center Nurse 1 [Ulcer Assessment] #3 right hallux -Combined with other wound No -Current Size (cm) - Length 1 -Current Size (cm) - Width 1.3 -Current Size (cm) - Depth 0.3 -Total Square Cm 1.3 -Tunneling No -Undermining/Tunneling No -Circular Undermining No -Exudate Amt Medium -Exudate Type Serosanguineous -Wound Margin Thickened -Granulation Amt Medium (34-66%) -Granulation Quality [place] -Slough/Fibrin Yes -Necrosis Amt Small (1-33%) -Necrotic Tissue Type Adherent Slough -Structure Exposed N/A -Texture (Anna-wound Skin Appearance) Assessed, Scarring -Moisture (Anna-wound Skin Appearance Assessed ) -Color (Anna-wound Skin Appearance) Assessed -Temperature (Anna-wound Skin No Abnormality Appearance) (Pt Warm) -Tenderness on Palpation (Anna-wound No Skin Appearance) -Ulcer Cleansing Wound Cleanser -Foul Odor after Cleansing No -Anesthetic Used 4% Lidocaine Solution WC - Nurse 2 - General Ulcer CM Notes Start: 11/19/19 15:08 Freq: Status: Active Protocol: Activity Type Activity Date Activity User E-Sign Co-Sign Detail Recorded Client Recorded Date Recorded By Document 12/03/19 15:55 [id number] 12/03/19 15:57 12/03/19 15:55 Wound Center Nurse 2 [Procedure/Treatment] -Time 15:56 -Correct Patient Yes -Correct Side, Site, Position Yes -Correct Procedure Yes -Procedure Performed Yes -Type of Procedure Debridement -Clinical Debridement Subcutaneous -Post Debridement Size (cm) - Length 1.1 -Post Debridement Size (cm) - Width 1.4 -Post Debridement Size (cm) - Depth 0.3 -Total Square Cm 1.54 -Wound/Ulcer Outcome Not Healed -Ulcer Cleansing Rinsed/ Irrigated with Saline -Foul Odor after Cleansing No -Bioengineered Tissue No -Bleeding Controlled with Pressure -Offloading Yes -Type of Offloading Surgical Shoe -Treatment Response Procedure Tolerated Well [See Physician Procedure note for Specifics] Pain Scale: 0-10 Numeric [Pain] -Is Patient Pain Free? Yes Musculoskeletal: No Tenderness to Palpation of Joints or Extremities, Muscle Wasting Neurological: - - Lack of normal epicritic sensation light touch is consistent with neuropathy status Psych/Mental Status: Normal Affect, Appropriate Debridement Note Post-Debridement Measurements/Treatment WC - Nurse 2 - General Ulcer CM Notes Start: 11/19/19 15:08 Freq: Status: Active Protocol: Activity Type Activity Date Activity User E-Sign Co-Sign Detail Recorded Client Recorded Date Recorded By Document 11/19/19 15:37 [id number] 11/19/19 15:40 Document 11/26/19 14:53 [id number] 11/26/19 14:55 Document 12/03/19 15:55 [id number] 12/03/19 15:57 11/19/19 11/26/19 12/03/19 15:37 14:53 15:55 Wound Center Nurse 2 #3 right hallux -Time 15:39 14:54 15:56 -Correct Patient Yes Yes Yes -Correct Side, Site, Position Yes Yes Yes -Correct Procedure Yes Yes Yes -Procedure Performed Yes Yes Yes -Type of Procedure Debridement Debridement Debridement -Clinical Debridement Muscle Muscle Subcutaneous -Post Debridement Size (cm) - Length 1.6 1.8 1.1 -Post Debridement Size (cm) - Width 1.5 1.4 1.4 -Post Debridement Size (cm) - Depth 0.3 0.3 0.3 -Total Square Cm 2.40 2.52 1.54 -Wound/Ulcer Outcome Not Healed Not Healed Not Healed -Ulcer Cleansing Rinsed/ Rinsed/ Rinsed/ Irrigated with Irrigated with Irrigated with Saline Saline Saline -Foul Odor after Cleansing No No No -Bioengineered Tissue No No No -Bleeding Controlled with Pressure Pressure Pressure -Offloading Yes Yes Yes -Type of Offloading Surgical Shoe Surgical Shoe Surgical Shoe -Treatment Response Procedure Procedure Procedure Tolerated Well Tolerated Well Tolerated Well Pain Scale: 0-10 Numeric Is Patient Pain Free? Yes Yes Yes Wound debrided: medial forefoot Laterality: Right Wound Grade/Stage: grade 2 Type of Debridement: Excisional debridement Anesthesia Used: 5% Lidocaine Gel Depth: in the subcutaneous layer Percentage of wound debrided: 100 Instrument Used: #15 blade Tissue Removed: fibrous, devitalized subcutaneous, biofilm, slough Severity: Fat Layer Exposed Amount of bleeding with debridement: Mild Bleeding Controlled with: Pressure Patient tolerated procedure well Assessment/Plan Assessment: Right foot ulcer with muscle and capsular tissue exposed. diabetes with neuropathy. vascular disease. malnutrition. Cellulitis resolving Plan: I reviewed and discussed this case with the patient. Subcutaneous and capsular/muscle tissue excisional debridement was performed with a 15 blade scalpel as noted in the clinical panel. He is advised to continue Santyl application daily applied a nickel thickness. To keep pressure off the site. He already has a surgical shoe and proper use of straps to avoid direct pressure on the site were reviewed again this afternoon. His x-rays were reviewed previously at the foot and ankle center which did not demonstrate any osseous destruction, foreign body, or soft tissue emphysema. Lab work was reviewed after clinic with a white blood cell count of 8.6, C-reactive protein of 17, and sedimentation rate of 70. Trends will be monitored and this demonstrates an inflammatory process is in place and suggests her supports of malnutrition as well. No other gross abnormalities were noted. He was advised he does have some necrotic devitalized tissue and the weekly debridements and Santyl use will help improve this. There is no systemic or lesley local signs of infection however the devitalized tissue is a concern. This to be monitored closely. Advanced imaging or further work-up may be warranted at future visits. It is also noted he has a history of vascular disease with occlusive disease identified even with his updated noninvasive vascular studies performed in early September 2019. I will request Dr. Calvillo's follow-up visit notes and plan if the patient did follow-up. An updated referral was provided it appears he has missed some follow-up sessions. Now that he has tissue loss and is high risk for limb loss I recommend he get back on track with this. To follow-up with the wound healing center in 1 week or call sooner if he has any questions, concerns, or deterioration in status or development of infection. I did also offer him telehealth follow-up options next week due to the coronavirus pandemic. He will asked to return to clinic in person and follow the necessary center precautions. He will benefit from serial debridement during this time.
[2019-12-10 14:28] VITALS: BP 135/59; PULSE 59; RESP 18; TEMP 36.4; BMI 32.3
--- NOTE | 2019-12-10 16:46 | PN.PCM_ITS ---
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 Current Visit: Yes Code(s): L97.513 - Non-pressure chronic ulcer of other part of right foot with necrosis of muscle (2) Peripheral vascular occlusive disease Status: Chronic Current Visit: Yes Code(s): I73.9 - Peripheral vascular disease, unspecified (3) Chronic kidney disease, stage 3 Status: Chronic Current Visit: Yes Code(s): N18.3 - Chronic kidney disease, stage 3 (moderate) (4) Type 2 diabetes mellitus with diabetic polyneuropathy Status: Chronic Current Visit: Yes Code(s): E11.42 - Type 2 diabetes mellitus with diabetic polyneuropathy (5) Delayed wound healing Status: Chronic Current Visit: Yes Code(s): T14.8 - Other injury of unspe cified body region (6) Malnutrition Status: Chronic Current Visit: Yes Code(s): E46 - Unspecified protein- calorie malnutrition Type of Wound Date of Service: 12/10/19 Chief Complaint: Foot ulcer History of Wound: This 74-year-old male follows up for right foot ulcer and his bunion site. It was noted with an onset of approximately 315. He denies trauma or development of claudication symptoms. He denies fevers, chills, nausea, vomiting, diarrhea, loss of appetite. He denies drainage or redness. He has been using Santyl and is noticing improvement in the ulcer. Progress of Wound: Improving quality - Physical Exam Vital Signs Temp Pulse Resp BP 97.5 F L 59 L 18 135/59 H 12/10/19 14:28 12/10/19 14:28 12/10/19 14:28 12/10/19 14:28 General: Alert, Oriented x3, Cooperative, No apparent distress HEENT: Atraumatic Extremities: No cyanosis, Capillary Refill Less than 3 Seconds, No Calf Tenderness, Diminished Peripheral Pulses, Edema Skin: Ulcer/ Wound - No purulence, erythema, streaking, odor, necrosis, eschar or infection. There is progressive granulation tissue noted to the ulcer bed with healthy capsule noted that is approximately 10% of the wound bed. The adjacent skin is hairless and atrophic Wound Measurements and Assessment WC - Nurse 1 - General Ulcer Measurement Start: 11/19/19 15:08 Freq: Status: Active Protocol: Activity Type Activity Date Activity User E-Sign Co-Sign Detail Recorded Client Recorded Date Recorded By Document 12/10/19 14:28 [id number] 12/10/19 14:29 12/10/19 14:28 Wound Center Nurse 1 [Ulcer Assessment] #5 right hallux -Combined with other wound No -Current Size (cm) - Length 1.2 -Current Size (cm) - Width 1.4 -Current Size (cm) - Depth 0.2 -Total Square Cm 1.68 -Photo Taken No -Epithelialization None Present -Tunneling No -Undermining/Tunneling No -Circular Undermining No -Exudate Amt None Present -Wound Margin Thickened & Rolled Under -Granulation Amt Large (67-100%) -Granulation Quality Pale,[place] -Slough/Fibrin Yes -Necrosis Amt None Present (0 %) -Necrotic Tissue Type Adherent Slough -Structure Exposed N/A -Texture (Anna-wound Skin Appearance) Callus -Moisture (Anna-wound Skin Appearance Dry/Scaly ) -Color (Anan-wound Skin Appearance) No Abnormality, Assessed -Temperature (Anna-wound Skin No Abnormality Appearance) (Pt Warm) -Tenderness on Palpation (Anna-wound No Skin Appearance) -Ulcer Cleansing Rinsed/ Irrigated with Saline -Foul Odor after Cleansing No -Anesthetic Used 4% Lidocaine Solution [Edema Assessment] -Lower Limb Edema Present NA WC - Nurse 2 - General Ulcer CM Notes Start: 11/19/19 15:08 Freq: Status: Active Protocol: Activity Type Activity Date Activity User E-Sign Co-Sign Detail Recorded Client Recorded Date Recorded By Document 12/10/19 15:06 [id number] 12/10/19 15:07 12/10/19 15:06 Wound Center Nurse 2 [Procedure/Treatment] #5 right hallux -Time 15:06 -Correct Patient Yes -Correct Side, Site, Position Yes -Correct Procedure Yes -Procedure Performed Yes -Type of Procedure Debridement -Clinical Debridement Subcutaneous -Post Debridement Size (cm) - Length 1.2 -Post Debridement Size (cm) - Width 1.5 -Post Debridement Size (cm) - Depth 0.2 -Total Square Cm 1.80 -Wound/Ulcer Outcome Not Healed -Ulcer Cleansing Rinsed/ Irrigated with Saline -Foul Odor after Cleansing No -Bioengineered Tissue No -Bleeding Controlled with Pressure -Offloading Yes -Type of Offloading Surgical Shoe -Treatment Response Procedure Tolerated Well [See Physician Procedure note for Specifics] Pain Scale: 0-10 Numeric [Pain] -Is Patient Pain Free? Yes Musculoskeletal: No Tenderness to Palpation of Joints or Extremities, Muscle Wasting, - - No bogginess on palpation Neurological: - - Lack of normal epicritic sensation light touch Psych/Mental Status: Normal Affect, Appropriate Debridement Note Post-Debridement Measurements/Treatment WC - Nurse 2 - General Ulcer CM Notes Start: 11/19/19 15:08 Freq: Status: Active Protocol: Activity Type Activity Date Activity User E-Sign Co-Sign Detail Recorded Client Recorded Date Recorded By Document 11/19/19 15:37 [id number] 11/19/19 15:40 Document 11/26/19 14:53 [id number] 11/26/19 14:55 Document 12/03/19 15:55 [id number] 12/03/19 15:57 Document 12/10/19 15:06 [id number] 12/10/19 15:07 11/19/19 11/26/19 12/03/19 15:37 14:53 15:55 Wound Center Nurse 2 #5 right hallux -Time 15:39 14:54 15:56 -Correct Patient Yes Yes Yes -Correct Side, Site, Position Yes Yes Yes -Correct Procedure Yes Yes Yes -Procedure Performed Yes Yes Yes -Type of Procedure Debridement Debridement Debridement -Clinical Debridement Muscle Muscle Subcutaneous -Post Debridement Size (cm) - Length 1.6 1.8 1.1 -Post Debridement Size (cm) - Width 1.5 1.4 1.4 -Post Debridement Size (cm) - Depth 0.3 0.3 0.3 -Total Square Cm 2.40 2.52 1.54 -Wound/Ulcer Outcome Not Healed Not Healed Not Healed -Ulcer Cleansing Rinsed/ Rinsed/ Rinsed/ Irrigated with Irrigated with Irrigated with Saline Saline Saline -Foul Odor after Cleansing No No No -Bioengineered Tissue No No No -Bleeding Controlled with Pressure Pressure Pressure -Offloading Yes Yes Yes -Type of Offloading Surgical Shoe Surgical Shoe Surgical Shoe -Treatment Response Procedure Procedure Procedure Tolerated Well Tolerated Well Tolerated Well Pain Scale: 0-10 Numeric Is Patient Pain Free? Yes Yes Yes 12/10/19 15:06 Wound Center Nurse 2 #5 right hallux -Time 15:06 -Correct Patient Yes -Correct Side, Site, Position Yes -Correct Procedure Yes -Procedure Performed Yes -Type of Procedure Debridement -Clinical Debridement Subcutaneous -Post Debridement Size (cm) - Length 1.2 -Post Debridement Size (cm) - Width 1.5 -Post Debridement Size (cm) - Depth 0.2 -Total Square Cm 1.80 -Wound/Ulcer Outcome Not Healed -Ulcer Cleansing Rinsed/ Irrigated with Saline -Foul Odor after Cleansing No -Bioengineered Tissue No -Bleeding Controlled with Pressure -Offloading Yes -Type of Offloading Surgical Shoe -Treatment Response Procedure Tolerated Well Pain Scale: 0-10 Numeric Is Patient Pain Free? Yes Wound debrided: medial forefoot Laterality: Right Wound Grade/Stage: grade 2 Type of Debridement: Excisional debridement Anesthesia Used: 5% Lidocaine Gel Depth: in the subcutaneous layer Percentage of wound debrided: 100 Instrument Used: #15 blade Tissue Removed: fibrous, devitalized subcutaneous, biofilm, slough Severity: Fat Layer Exposed Amount of bleeding with debridement: Mild Bleeding Controlled with: Pressure Patient tolerated procedure well Assessment/Plan Active Problems (Last Reviewed 06/12/19 @ 11:08 by Carly Mckeon) Ulcer of right foot with necrosis of muscle (Chronic) Peripheral vascular occlusive disease (Chronic) Chronic kidney disease, stage 3 (Chronic) Type 2 diabetes mellitus with diabetic polyneuropathy (Chronic) Delayed wound healing (Chronic) Malnutrition (Chronic) Assessment: Right foot ulcer with muscle and capsular tissue exposed. diabetes with neuropathy. vascular disease. malnutrition. Cellulitis resolved Plan: I reviewed and discussed this case with the patient. Subcutaneous excisional debridement was performed with a 15 blade scalpel as noted in the clinical panel. He is advised to continue Santyl application daily applied a nickel thickness. Due to the improvement of tissue quality but overall lack of healing speed. I do recommend the application of advanced wound healing product, placental derived epi-fix. Prior authorization will be initiated. This is medically necessary for limb salvage. He is undergoing a comprehensive wound healing plan. The indications, benefits, application plan and anticipated healing time management were discussed in detail. He understands elects to proceed forward. To keep pressure off the site. He already has a surgical shoe and proper use of straps to avoid direct pressure on the site were reviewed again this afternoon. His x-rays were reviewed previously at the [facility] center which did not demonstrate any osseous destruction, foreign body, or soft tissue emphysema. Lab work was reviewed after clinic with a white blood cell count of 8.6, C-reactive protein of 17, and sedimentation rate of 70. Trends will be monitored and this demonstrates an inflammatory process is in place and suggests her supports of malnutrition as well. No other gross abnormalities were noted. He was advised he does have some necrotic devitalized tissue and the weekly debridements and Santyl use will help improve this. There is no systemic or lesley local signs of infection however the devitalized tissue is a concern. This to be monitored closely. Advanced imaging or further work-up may be warranted at future visits. It is also noted he has a history of vascular disease with occlusive disease identified even with his updated noninvasive vascular studies performed in early September 2019. I will request Dr. Calvillo's follow-up visit notes and plan if the patient did follow-up. An updated referral was provided it appears he has missed some follow-up sessions. Now that he has tissue loss and is high risk for limb loss I recommend he get back on track with this. To follow-up with the wound healing center in 1 week or call sooner if he has any questions, concerns, or deterioration in status or development of infection. I did also offer him telehealth follow-up options next week due to the coronavirus pandemic. He will asked to return to clinic in person and follow the necessary center precautions. He will benefit from serial debridement during this time.
[2019-12-17 14:01] VITALS: BP 130/44; PULSE 60; RESP 18; TEMP 36.3; BMI 32.3
--- NOTE | 2019-12-17 22:44 | PN.PCM_ITS ---
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 Code(s): L97.513 - Non-pressure chronic ulcer of other part of right foot with necrosis of muscle (2) Peripheral vascular occlusive disease Status: Chronic Code(s): I73.9 - Peripheral vascular disease, unspecified (3) Chronic kidney disease, stage 3 Status: Chronic Code(s): N18.3 - Chronic kidney disease, stage 3 (moderate) (4) Type 2 diabetes mellitus with diabetic polyneuropathy Status: Chronic Code(s): E11.42 - Type 2 diabetes mellitus with diabetic polyneuropathy (5) Delayed wound healing Status: Chronic Code(s): T14.8 - Other injury of unspecified body region (6) Malnutrition Status: Chronic Code(s): E46 - Unspecified protein-calorie malnutrition Type of Wound Date of Service: 12/17/19 Chief Complaint: Foot ulcer History of Wound: This 74-year-old male follows up for right foot ulcer and his bunion site. It was noted with an onset of approximately 3-15-2020. He denies trauma or development of claudication symptoms. He denies fevers, chills, nausea, vomiting, diarrhea, loss of appetite. He denies drainage or redness. He has been using Santyl and is noticing improvement in the ulcer. He is amendable to have advanced wound healing product applied today. Progress of Wound: Improving quality - Physical Exam Vital Signs Temp Pulse Resp BP 97.4 F L 60 18 130/44 H 12/17/19 14:01 12/17/19 14:01 12/17/19 14:01 12/17/19 14:01 General: Alert, Oriented x3, Cooperative, No apparent distress Extremities: No cyanosis, Capillary Refill Less than 3 Seconds, No Calf Tenderness, Diminished Peripheral Pulses, Edema Skin: Ulcer/ Wound - No purulence, erythema, streaking, odor, eschar, deep tissue exposure. Improvement in granulation tissue. His adjacent skin is hairless and atrophic Wound Measurements and Assessment WC - Nurse 1 - General Ulcer Measurement Start: 11/19/19 15:08 Freq: Status: Active Protocol: Activity Type Activity Date Activity User E-Sign Co-Sign Detail Recorded Client Recorded Date Recorded By Document 12/17/19 14:01 DL [id number] 12/17/19 14:06 DL 12/17/19 14:01 Wound Center Nurse 1 [Ulcer Assessment] #5 right hallux -Current Size (cm) - Length 1.6 -Current Size (cm) - Width 1.3 -Current Size (cm) - Depth 0.2 -Total Square Cm 2.08 -Photo Taken No -Exudate Amt Medium -Exudate Type Serosanguineous -Wound Margin Thickened -Granulation Amt Small (1-33%) -Granulation Quality [place] -Necrosis Amt Large (67-100%) -Necrotic Tissue Type Adherent Slough -Structure Exposed N/A -Texture (Anna-wound Skin Appearance) Callus,Scarring -Moisture (Anna-wound Skin Appearance Maceration,Dry/ ) Scaly -Color (Anna-wound Skin Appearance) Hemosiderin Staining -Temperature (Anna-wound Skin No Abnormality Appearance) (Pt Warm) -Tenderness on Palpation (Anna-wound No Skin Appearance) -Ulcer Cleansing Rinsed/ Irrigated with Saline -Foul Odor after Cleansing No -Anesthetic Used 4% Lidocaine Solution WC - Nurse 2 - General Ulcer CM Notes Start: 11/19/19 15:08 Freq: Status: Active Protocol: Activity Type Activity Date Activity User E-Sign Co-Sign Detail Recorded Client Recorded Date Recorded By Document 12/17/19 14:49 [id number] 12/17/19 14:50 DORA 12/17/19 14:49 Wound Center Nurse 2 [Procedure/Treatment] -Time 14:49 -Correct Patient Yes -Correct Side, Site, Position Yes -Correct Procedure Yes -Procedure Performed Yes -Type of Procedure Debridement -Clinical Debridement Subcutaneous -Post Debridement Size (cm) - Length 1.6 -Post Debridement Size (cm) - Width 1.4 -Post Debridement Size (cm) - Depth 0.2 -Total Square Cm 2.24 -Wound/Ulcer Outcome Not Healed -Ulcer Cleansing Rinsed/ Irrigated with Saline -Foul Odor after Cleansing No -Bioengineered Tissue Yes -Type of bioengineered Tissue EPIFIX -Expiration Date 08/20/24 -Product Lot Number [id number] -Percent Used 100 -Saline Lot Number [id number] -Bleeding Controlled with Pressure -Offloading Yes -Type of Offloading Surgical Shoe -Treatment Response Procedure Tolerated Well [See Physician Procedure note for Specifics] Pain Scale: 0-10 Numeric [Pain] -Is Patient Pain Free? Yes Musculoskeletal: No Tenderness to Palpation of Joints or Extremities, Muscle Wasting, - - Mild bunion deformity Neurological: - - Lack of epicritic sensation light touch is consistent with neuropathy status Psych/Mental Status: Normal Affect, Appropriate Debridement Note Post-Debridement Measurements/Treatment WC - Nurse 2 - General Ulcer CM Notes Start: 11/19/19 15:08 Freq: Status: Active Protocol: Activity Type Activity Date Activity User E-Sign Co-Sign Detail Recorded Client Recorded Date Recorded By Document 11/19/19 15:37 [id number] 11/19/19 15:40 Document 11/26/19 14:53 [id number] 11/26/19 14:55 Document 12/03/19 15:55 [id number] 12/03/19 15:57 Document 12/10/19 15:06 [id number] 12/10/19 15:07 Document 12/17/19 14:49 [id number] 12/17/19 14:50 11/19/19 11/26/19 12/03/19 15:37 14:53 15:55 Wound Center Nurse 2 #5 right hallux -Time 15:39 14:54 15:56 -Correct Patient Yes Yes Yes -Correct Side, Site, Position Yes Yes Yes -Correct Procedure Yes Yes Yes -Procedure Performed Yes Yes Yes -Type of Procedure Debridement Debridement Debridement -Clinical Debridement Muscle Muscle Subcutaneous -Post Debridement Size (cm) - Length 1.6 1.8 1.1 -Post Debridement Size (cm) - Width 1.5 1.4 1.4 -Post Debridement Size (cm) - Depth 0.3 0.3 0.3 -Total Square Cm 2.40 2.52 1.54 -Wound/Ulcer Outcome Not Healed Not Healed Not Healed -Ulcer Cleansing Rinsed/ Rinsed/ Rinsed/ Irrigated with Irrigated with Irrigated with Saline Saline Saline -Foul Odor after Cleansing No No No -Bioengineered Tissue No No No -Type of bioengineered Tissue -Expiration Date -Product Lot Number -Percent Used -Saline Lot Number -Bleeding Controlled with Pressure Pressure Pressure -Offloading Yes Yes Yes -Type of Offloading Surgical Shoe Surgical Shoe Surgical Shoe -Treatment Response Procedure Procedure Procedure Tolerated Well Tolerated Well Tolerated Well Pain Scale: 0-10 Numeric Is Patient Pain Free? Yes Yes Yes 12/10/19 12/17/19 15:06 14:49 Wound Center Nurse 2 #5 right hallux -Time 15:06 14:49 -Correct Patient Yes Yes -Correct Side, Site, Position Yes Yes -Correct Procedure Yes Yes -Procedure Performed Yes Yes -Type of Procedure Debridement Debridement -Clinical Debridement Subcutaneous Subcutaneous -Post Debridement Size (cm) - Length 1.2 1.6 -Post Debridement Size (cm) - Width 1.5 1.4 -Post Debridement Size (cm) - Depth 0.2 0.2 -Total Square Cm 1.80 2.24 -Wound/Ulcer Outcome Not Healed Not Healed -Ulcer Cleansing Rinsed/ Rinsed/ Irrigated with Irrigated with Saline Saline -Foul Odor after Cleansing No No -Bioengineered Tissue No Yes -Type of bioengineered Tissue EPIFIX -Expiration Date 08/20/24 -Product Lot Number [id number] -Percent Used 100 -Saline Lot Number [id number] -Bleeding Controlled with Pressure Pressure -Offloading Yes Yes -Type of Offloading Surgical Shoe Surgical Shoe -Treatment Response Procedure Procedure Tolerated Well Tolerated Well Pain Scale: 0-10 Numeric Is Patient Pain Free? Yes Yes Wound debrided: medial forefoot Laterality: Right Wound Grade/Stage: grade 2 Type of Debridement: Excisional debridement Anesthesia Used: 5% Lidocaine Gel Depth: in the subcutaneous layer Percentage of wound debrided: 100 Instrument Used: #15 blade Tissue Removed: fibrous, devitalized subcutaneous, biofilm, slough Severity: Fat Layer Exposed Amount of bleeding with debridement: Mild Bleeding Controlled with: Pressure Patient tolerated procedure well Assessment/Plan Assessment: Right foot ulcer with muscle and capsular tissue exposed. diabetes with neuropathy. vascular disease. malnutrition. Cellulitis resolved Plan: I reviewed and discussed this case with the patient. Subcutaneous excisional debridement was performed with a 15 blade scalpel as noted in the clinical panel. Due to the improvement of tissue quality but overall lack of healing speed. I do recommend the application of advanced wound healing product, placental derived epi-fix. Prior authorization was obtained. This is medically necessary for limb salvage. Verbal consent was obtained in this product, epi-fix, was applied according standard protocol. This was tolerated well. This was secured in place with a wound veil and Steri-Strips. A secondary dressing was applied. He was advised to keep this clean, dry, and intact until follow-up next week. The anticipated management and applications were reviewed again today. He is undergoing a comprehensive wound healing plan. The indications, benefits, application plan and anticipated healing time management were discussed in detail. He understands elects to proceed forward. To keep pressure off the site. He already has a surgical shoe and proper use of straps to avoid direct pressure on the site were reviewed again this afternoon. His x-rays were reviewed previously at the foot and ankle center which did not demonstrate any osseous destruction, foreign body, or soft tissue emphysema. Lab work was reviewed after clinic with a white blood cell count of 8.6, C-reactive protein of 17, and sedimentation rate of 70. Trends will be monitored and this demonstrates an inflammatory process is in place and suggests her supports of malnutrition as well. No other gross abnormalities were noted. He was advised he does have some necrotic devitalized tissue and the weekly debridements and Santyl use will help improve this. There is no systemic or lesley local signs of infection however the devitalized tissue is a concern. This to be monitored closely. Advanced imaging or further work-up may be warranted at future visits. It is also noted he has a history of vascular disease with occlusive disease identified even with his updated noninvasive vascular studies performed in early September 2019. I will request Dr. Calvillo's follow-up visit notes and plan if the patient did follow-up. An updated referral was provided it appears he has missed some follow-up sessions. Now that he has tissue loss and is high risk for limb loss I recommend he get back on track with this. To follow-up with the wound healing center in 1 week or call sooner if he has any questions, concerns, or deterioration in status or development of infection. I did also offer him telehealth follow-up options next week due to the coronavirus pandemic. He will asked to return to clinic in person and follow the necessary center precautions. He will benefit from serial debridement during this time.
== END 2019-12-18 23:59 ==
LOC: WC 14:00
PROVIDERS: PCP Family Medicine; Visit Provider Podiatrist
DX: E11.621 Type 2 diabetes mellitus with foot ulcer (principal); E11.22 Type 2 diabetes mellitus with diabetic chronic kidney disease; E11.42 Type 2 diabetes mellitus with diabetic polyneuropathy; N18.3 Chronic kidney disease, stage 3 (moderate); E11.51 Type 2 diabetes mellitus with diabetic peripheral angiopathy without gangrene; L97.512 Non-pressure chronic ulcer of other part of right foot with fat layer exposed
CPT/HCPCS: 11042; 11043; 15275; 80053; 85025; 85652; 86140; 99213; Q4186; G0463

== ENCOUNTER → 2019-12-29 12:46 | Outpatient (CLI) | payer MEDICARE, OTHER, SELFPAY ==
[2019-12-10 14:28] VITALS: BMI 32.3
[2019-12-24 13:56] VITALS: BMI 32.3
--- NOTE | 2019-12-29 12:56 | VDLE_ITS ---
Reason For Study: Varicose veins RIGHT LEFT CFV is compressible, spontaneous, phasic, CFV is compressible, spontaneous, phasic, competent and demonstrates normal competent, and demonstrates normal augmentation. augmentation. FV is compressible, spontaneous, phasic, FV is compressible, spontaneous, phasic, competent and demonstrates normal competent and demonstrates normal augmentation. augmentation. POP V is compressible, spontaneous, phasic, POP V is compressible, spontaneous, phasic, competent and demonstrates normal competent and demonstrates normal augmentation. augmentation. T/P Trunk is compressible. T/P Trunk is compressible. PTV is compressible. PTV is compressible. RT PerV is compressible. LT PerV is compressible. SFJ is competent and measures 0.96 x 1.12 cm. GSV previously harvested. GSV proximal thigh measures 0.32 x 0.33 cm. SFJ is competent and measures 0.71 x 0.75 cm. GSV at knee measures 0.24 x 0.23 cm. ASV at knee is INCOMPETENT for greater than GSV INCOMPETENT throughout for greater than 0.5 seconds and measures 0.18 x 0.23 cm. 0.5 seconds. ASV proximal calf is INCOMPETENT for greater ASV mid calf is INCOMPETENT for greater than than 0.5 seconds and measures 0.18 x 0.23 cm. 0.5 seconds and measures 0.18 x 0.21 cm. SSV at junction is INCOMPETENT for greater SSV at junction is INCOMPETENT for greater than 0.5 seconds and measures 0.33 x 0.32 cm. than 0.5 seconds and measures 0.34 x 0.33 cm. Procedure Exam performed in department. Interpretation Summary Bilateral no DVT. Bilateral calf wiht primary veins wiht reflux. bilateral SPJ reflux. Ordering Physician: Indra Calvillo Referring Physician: Luis Johnson Performed By: Lisa Peña RVT
--- NOTE | 2019-12-29 12:56 | ART_ITS ---
Reason For Study: Atherosclerosis Procedure A bilateral lower extremity continuous wave Doppler with analog waveform analysis and ankle brachial indexes. Left Segmental Pressures Left brachial= 133mmHg. Left posterior tibial artery = 175mmHg. Left dorsalis pedis artery = 130mmHg. Left digit = 97 mmHg. The left dorsalis pedis waveforms are triphasic. The left posterior tibial artery waveforms are triphasic. Right Segmental Pressures Right brachial= 140mmHg. Right posterior tibial artery = 158mmHg. Right dorsalis pedis artery = 145mmHg. Right digit = 73 mmHg. The right dorsalis pedis waveforms are triphasic. The right posterior tibial artery waveforms are triphasic. Indices The right ankle brachial index by the dorsalis pedis is 1.04. The right ankle brachial index by the posterior tibial artery is 1.13. The right digital-brachial index is 0.52. The left ankle brachial index by the dorsalis pedis is 0.93. The left ankle brachial index by the posterior tibial artery is 1.25. The left digital-brachial index is 0.69. Interpretation Summary Resting ankle-brachial indices appear bilaterally normal. Ordering Physician: Indra Calvillo Referring Physician: Luis Johnson Performed By: Lisa Peña RVT
== END ==
PROVIDERS: PCP Family Medicine; Visit Provider Surgery Vascular Surgery
DX: M79.609 Pain in unspecified limb (principal); M79.89 Other specified soft tissue disorders; I70.213 Atherosclerosis of native arteries of extremities with intermittent claudication, bilateral legs; I83.891 Varicose veins of right lower extremity with other complications; I83.009 Varicose veins of unspecified lower extremity with ulcer of unspecified site; I87.2 Venous insufficiency (chronic) (peripheral); I83.90 Asymptomatic varicose veins of unspecified lower extremity
CPT/HCPCS: 93922; 93970

== ENCOUNTER 2020-01-14 13:30 | Outpatient (RCR) | payer MEDICARE, OTHER, SELFPAY ==
[2019-12-19 00:20] VITALS: BP 130/44; PULSE 60; RESP 18; TEMP 36.3
[2019-12-24 13:56] VITALS: BP 152/61; PULSE 66; RESP 20; TEMP 36.2; BMI 32.3
--- NOTE | 2019-12-24 15:34 | PN.PCM_ITS ---
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 Current Visit: Yes Code(s): L97.513 - Non-pressure chronic ulcer of other part of right foot with necrosis of muscle (2) Peripheral vascular occlusive disease Status: Chronic Current Visit: Yes Code(s): I73.9 - Peripheral vascular disease, unspecified (3) Type 2 diabetes mellitus with diabetic polyneuropathy Status: Chronic Current Visit: Yes Code(s): E11.42 - Type 2 diabetes mellitus with diabetic polyneuropathy (4) Malnutrition Status: Chronic Current Visit: Yes Code(s): E46 - Unspecified protein- calorie malnutrition (5) Lower extremity edema Status: Chronic Current Visit: Yes Code(s): R60.0 - Localized edema Type of Wound Date of Service: 12/24/19 Chief Complaint: Foot ulcer History of Wound: This 74-year-old male follows up for right foot ulcer and his bunion site. It was noted with an onset of approximately 3-15-2020. He denies trauma or development of claudication symptoms. He denies fevers, chills, nausea, vomiting, diarrhea, loss of appetite. He denies drainage or redness. He had an epi-fix applied last week and is doing well. Progress of Wound: Improving quality - Physical Exam Vital Signs Temp Pulse Resp BP 97.2 F L 66 20 H 152/61 H 12/24/19 13:56 12/24/19 13:56 12/24/19 13:56 12/24/19 13:56 General: Alert, Oriented x3, Cooperative Extremities: No cyanosis, Capillary Refill Less than 3 Seconds, No Calf Tenderness, Diminished Peripheral Pulses, Edema - Scant Skin: Ulcer/ Wound - No purulence, erythema, string, odor, infection. Adjacent skin is hairless and atrophic. There is peripheral epithelialization and granulation tissue formation. Wound Measurements and Assessment WC - Nurse 1 - General Ulcer Measurement Start: 12/24/19 13:56 Freq: Status: Active Protocol: Activity Type Activity Date Activity User E-Sign Co-Sign Detail Recorded Client Recorded Date Recorded By Document 12/24/19 13:56 DL [id number] 12/24/19 14:04 DL 12/24/19 13:56 Wound Center Nurse 1 [Ulcer Assessment] #5 right hallux -Current Size (cm) - Length 1 -Current Size (cm) - Width 1.1 -Current Size (cm) - Depth 0.1 -Total Square Cm 1.1 -Photo Taken No -Exudate Amt Small -Exudate Type Serosanguineous -Wound Margin Thickened -Granulation Amt Medium (34-66%) -Granulation Quality Pale -Necrosis Amt Medium (34-66%) -Necrotic Tissue Type Adherent Slough -Structure Exposed N/A -Texture (Anna-wound Skin Appearance) Callus -Moisture (Anna-wound Skin Appearance Dry/Scaly ) -Color (Anna-wound Skin Appearance) Hemosiderin Staining -Temperature (Anna-wound Skin No Abnormality Appearance) (Pt Warm) -Tenderness on Palpation (Anna-wound No Skin Appearance) -Ulcer Cleansing Wound Cleanser -Foul Odor after Cleansing No -Anesthetic Used 4% Lidocaine Solution [Edema Assessment] -Right Calf (cm) 35 -Right Ankle (cm) 21 WC - Nurse 2 - General Ulcer CM Notes Start: 12/24/19 13:56 Freq: Status: Active Protocol: Activity Type Activity Date Activity User E-Sign Co-Sign Detail Recorded Client Recorded Date Recorded By Document 12/24/19 14:19 [id number] 12/24/19 14:21 DORA 12/24/19 14:19 Wound Center Nurse 2 [Procedure/Treatment] #5 right hallux -Time 14:20 -Correct Patient Yes -Correct Side, Site, Position Yes -Correct Procedure Yes -Procedure Performed Yes -Type of Procedure Debridement -Clinical Debridement Subcutaneous -Post Debridement Size (cm) - Length 1.1 -Post Debridement Size (cm) - Width 1.1 -Post Debridement Size (cm) - Depth 0.2 -Total Square Cm 1.21 -Wound/Ulcer Outcome Not Healed -Ulcer Cleansing Rinsed/ Irrigated with Saline -Foul Odor after Cleansing No -Bioengineered Tissue Yes -Type of bioengineered Tissue EPIFIX -Expiration Date 09/20/24 -Product Lot Number [id number] -Percent Used 100 -Saline Lot Number [id number] -Bleeding Controlled with Pressure -Offloading Yes -Type of Offloading Surgical Shoe -Treatment Response Procedure Tolerated Well [See Physician Procedure note for Specifics] Pain Scale: 0-10 Numeric [Pain] -Is Patient Pain Free? Yes Musculoskeletal: No Tenderness to Palpation of Joints or Extremities, Muscle Wasting Neurological: - - Lack of epicritic sensation consistent with neuropathy via light touch Psych/Mental Status: Normal Affect, Appropriate Debridement Note Post-Debridement Measurements/Treatment WC - Nurse 2 - General Ulcer CM Notes Start: 12/24/19 13:56 Freq: Status: Active Protocol: Activity Type Activity Date Activity User E-Sign Co-Sign Detail Recorded Client Recorded Date Recorded By Document 12/24/19 14:19 [id number] 12/24/19 14:21 DORA 12/24/19 14:19 Wound Center Nurse 2 #5 right hallux -Time 14:20 -Correct Patient Yes -Correct Side, Site, Position Yes -Correct Procedure Yes -Procedure Performed Yes -Type of Procedure Debridement -Clinical Debridement Subcutaneous -Post Debridement Size (cm) - Length 1.1 -Post Debridement Size (cm) - Width 1.1 -Post Debridement Size (cm) - Depth 0.2 -Total Square Cm 1.21 -Wound/Ulcer Outcome Not Healed -Ulcer Cleansing Rinsed/ Irrigated with Saline -Foul Odor after Cleansing No -Bioengineered Tissue Yes -Type of bioengineered Tissue EPIFIX -Expiration Date 09/20/24 -Product Lot Number [id number] -Percent Used 100 -Saline Lot Number [id number] -Bleeding Controlled with Pressure -Offloading Yes -Type of Offloading Surgical Shoe -Treatment Response Procedure Tolerated Well Pain Scale: 0-10 Numeric Is Patient Pain Free? 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 diabetes with neuropathy. vascular disease. malnutrition. Cellulitis resolved Plan: I reviewed and discussed this case with the patient. Subcutaneous excisional debridement was performed with a 15 blade scalpel as noted in the clinical panel. Due to the improvement of tissue quality but overall lack of healing speed. I do recommend the application of advanced wound healing product, placental derived epi-fix. Prior authorization was obtained. This is medically necessary for limb salvage. Verbal consent was obtained in this product, epi-fix, was applied according standard protocol. This was tolerated well. This was secured in place with a wound veil and Steri-Strips. A secondary dressing was applied. He was advised to keep this clean, dry, and intact until follow-up next week. The anticipated management and applications were reviewed again today. He is undergoing a comprehensive wound healing plan. The indications, benefits, application plan and anticipated healing time management were discussed in detail. He understands elects to proceed forward. To keep pressure off the site. He already has a surgical shoe and proper use of straps to avoid direct pressure on the site were reviewed again this afternoon. His x-rays were reviewed previously at the [facility] center which did not demonstrate any osseous destruction, foreign body, or soft tissue emphysema. Lab work was reviewed after clinic with a white blood cell count of 8.6, C-reactive protein of 17, and sedimentation rate of 70. Trends will be monitored and this demonstrates an inflammatory process is in place and suggests her supports of malnutrition as well. No other gross abnormalities were noted. He was advised he does have some necrotic devitalized tissue and the weekly debridements and Santyl use will help improve this. There is no systemic or lesley local signs of infection however the devitalized tissue is a concern. This to be monitored closely. Advanced imaging or further work-up may be warranted at future visits. It is also noted he has a history of vascular disease with occlusive disease identified even with his updated noninvasive vascular studies performed in early September 2019. I will request Dr. Calvillo's follow-up visit notes and plan if the patient did follow-up. An updated referral was provided it appears he has missed some follow-up sessions. Now that he has tissue loss and is high risk for limb loss I recommend he get back on track with this. He has an appointment scheduled. To follow-up with the wound healing center in 1 week or call sooner if he has any questions, concerns, or deterioration in status or development of infection. I did also offer him telehealth follow-up options next week due to the coronavirus pandemic. He will asked to return to clinic in person and follow the necessary center precautions. He will benefit from serial debridement during this time.
[2019-12-31 13:26] VITALS: BP 141/50; PULSE 61; RESP 18; TEMP 36.6; BMI 32.3
--- NOTE | 2019-12-31 22:17 | PN.PCM_ITS ---
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 Current Visit: Yes Code(s): L97.513 - Non-pressure chronic ulcer of other part of right foot with necrosis of muscle (2) Peripheral vascular occlusive disease Status: Chronic Current Visit: Yes Code(s): I73.9 - Peripheral vascular disease, unspecified (3) Type 2 diabetes mellitus with diabetic polyneuropathy Status: Chronic Current Visit: Yes Code(s): E11.42 - Type 2 diabetes mellitus with diabetic polyneuropathy (4) Malnutrition Status: Chronic Current Visit: Yes Code(s): E46 - Unspecified protein- calorie malnutrition (5) Lower extremity edema Status: Chronic Current Visit: Yes Code(s): R60.0 - Localized edema Type of Wound Date of Service: 12/31/19 Chief Complaint: Foot ulcer History of Wound: This 74-year-old male follows up for right foot ulcer and his bunion site. It was noted with an onset of approximately 3-15-2020. He denies trauma or development of claudication symptoms. He denies fevers, chills, nausea, vomiting, diarrhea, loss of appetite. He denies drainage or redness. He had an epi-fix applied last week and is doing well. Progress of Wound: Improving quality - Physical Exam Vital Signs Temp Pulse Resp BP 97.8 F 61 18 141/50 H 12/31/19 13:26 12/31/19 13:26 12/31/19 13:26 12/31/19 13:26 General: Alert, Oriented x3, Cooperative HEENT: Atraumatic Extremities: No cyanosis, Capillary Refill Less than 3 Seconds, No Calf Tenderness, Diminished Peripheral Pulses, Edema Skin: Ulcer/ Wound - No purulence, erythema, streaking, odor, infection. There is continued granulation tissue noted and there is proximal wound capsule exposure. There is no necrosis eschar or bone exposure Wound Measurements and Assessment WC - Nurse 1 - General Ulcer Measurement Start: 12/24/19 13:56 Freq: Status: Active Protocol: Activity Type Activity Date Activity User E-Sign Co-Sign Detail Recorded Client Recorded Date Recorded By Document 12/31/19 13:26 DL [id number] 12/31/19 13:34 DL 12/31/19 13:26 Wound Center Nurse 1 [Ulcer Assessment] #5 right hallux -Current Size (cm) - Length 1.7 -Current Size (cm) - Width 1 -Current Size (cm) - Depth 0.1 -Total Square Cm 1.7 -Photo Taken No -Exudate Amt Small -Exudate Type Serosanguineous -Wound Margin Thickened -Granulation Amt None Present (0 %) -Necrosis Amt Large (67-100%) -Necrotic Tissue Type Adherent Slough -Structure Exposed N/A -Texture (Anna-wound Skin Appearance) Callus,Scarring -Moisture (Anna-wound Skin Appearance Dry/Scaly ) -Color (Anna-wound Skin Appearance) Hemosiderin Staining -Temperature (Anna-wound Skin No Abnormality Appearance) (Pt Warm) -Tenderness on Palpation (Anna-wound No Skin Appearance) -Ulcer Cleansing Wound Cleanser -Foul Odor after Cleansing No -Anesthetic Used 4% Lidocaine Solution [Edema Assessment] -Right Calf (cm) 35.7 -Right Ankle (cm) 20.8 WC - Nurse 2 - General Ulcer CM Notes Start: 12/24/19 13:56 Freq: Status: Active Protocol: Activity Type Activity Date Activity User E-Sign Co-Sign Detail Recorded Client Recorded Date Recorded By Document 12/31/19 13:48 [email or web address] [id number] 12/31/19 13:50 DORA 12/31/19 13:48 Wound Center Nurse 2 [Procedure/Treatment] #5 right hallux -Time 13:49 -Correct Patient Yes -Correct Side, Site, Position Yes -Correct Procedure Yes -Procedure Performed Yes -Type of Procedure Debridement -Clinical Debridement Subcutaneous -Post Debridement Size (cm) - Length 1.8 -Post Debridement Size (cm) - Width 1 -Post Debridement Size (cm) - Depth 0.2 -Total Square Cm 1.8 -Wound/Ulcer Outcome Not Healed -Ulcer Cleansing Rinsed/ Irrigated with Saline -Foul Odor after Cleansing No -Bioengineered Tissue No -Bleeding Controlled with Pressure -Offloading Yes -Type of Offloading Surgical Shoe -Treatment Response Procedure Tolerated Well [See Physician Procedure note for Specifics] Pain Scale: 0-10 Numeric [Pain] -Is Patient Pain Free? Yes Musculoskeletal: No Tenderness to Palpation of Joints or Extremities, Muscle Wasting Neurological: - Psych/Mental Status: Normal Affect, Appropriate Debridement Note Post-Debridement Measurements/Treatment WC - Nurse 2 - General Ulcer CM Notes Start: 05/06/20 13:56 Freq: Status: Active Protocol: Activity Type Activity Date Activity User E-Sign Co-Sign Detail Recorded Client Recorded Date Recorded By Document 12/24/19 14:19 [id number] 12/24/19 14:21 Document 12/31/19 13:48 [id number] 12/31/19 13:50 12/24/19 12/31/19 14:19 13:48 Wound Center Nurse 2 #5 right hallux -Time 14:20 13:49 -Correct Patient Yes Yes -Correct Side, Site, Position Yes Yes -Correct Procedure Yes Yes -Procedure Performed Yes Yes -Type of Procedure Debridement Debridement -Clinical Debridement Subcutaneous Subcutaneous -Post Debridement Size (cm) - Length 1.1 1.8 -Post Debridement Size (cm) - Width 1.1 1 -Post Debridement Size (cm) - Depth 0.2 0.2 -Total Square Cm 1.21 1.8 -Wound/Ulcer Outcome Not Healed Not Healed -Ulcer Cleansing Rinsed/ Rinsed/ Irrigated with Irrigated with Saline Saline -Foul Odor after Cleansing No No -Bioengineered Tissue Yes No -Type of bioengineered Tissue EPIFIX -Expiration Date 09/20/24 -Product Lot Number [id number] -Percent Used 100 -Saline Lot Number [id number] -Bleeding Controlled with Pressure Pressure -Offloading Yes Yes -Type of Offloading Surgical Shoe Surgical Shoe -Treatment Response Procedure Procedure Tolerated Well Tolerated Well Pain Scale: 0-10 Numeric Is Patient Pain Free? 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 diabetes with neuropathy. vascular disease. malnutrition. Cellulitis resolved Plan: I reviewed and discussed this case with the patient. Subcutaneous excisional debridement was performed with a 15 blade scalpel as noted in the clinical panel. Due to the improvement of tissue quality but overall lack of healing speed. I do recommend the application of advanced wound healing product, placental derived epi-fix. Prior authorization was obtained. This is medically necessary for limb salvage. Verbal consent was obtained in this product, epi-fix, was applied according standard protocol. This was tolerated well. This was secured in place with a wound veil and Steri-Strips. A secondary dressing was applied. He was advised to keep this clean, dry, and intact until follow-up next week. Due to the continued exposed capsule tissue I do recommend application of epi-cord which is umbilical derived advanced wound healing product that incorporates better over deeper exposed tissue. Prior authorization will be initiated and this will be potentially applied if he is approved next week. It is noted he is already had 3 other advanced wound healing products, epi-fix applied thus far. The anticipated management and applications were reviewed again today. He is undergoing a comprehensive wound healing plan. The indications, benefits, application plan and anticipated healing time management were discussed in detail. He understands elects to proceed forward. To keep pressure off the site. He already has a surgical shoe and proper use of straps to avoid direct pressure on the site were reviewed again this afternoon. His x-rays were reviewed previously at the foot and ankle center which did not demonstrate any osseous destruction, foreign body, or soft tissue emphysema. Lab work was reviewed after clinic with a white blood cell count of 8.6, C-reactive protein of 17, and sedimentation rate of 70. Trends will be monitored and this demonstrates an inflammatory process is in place and suggests her supports of malnutrition as well. No other gross abnormalities were noted. He was advised he does have some necrotic devitalized tissue and the weekly debridements and Santyl use will help improve this. There is no systemic or lesley local signs of infection however the devitalized tissue is a concern. This to be monitored closely. Advanced imaging or further work-up may be warranted at future visits. It is also noted he has a history of vascular disease with occlusive disease identified even with his updated noninvasive vascular studies performed in early September 2019. I will request Dr. Calvillo's follow-up visit notes and plan if the patient did follow-up. An updated referral was provided it appears he has missed some follow-up sessions. Now that he has tissue loss and is high risk for limb loss I recommend he get back on track with this. He has an appointment scheduled. To follow-up with the wound healing center in 1 week or call sooner if he has any questions, concerns, or deterioration in status or development of infection. I did also offer him telehealth follow-up options next week due to the coronavirus pandemic. He will asked to return to clinic in person and follow the necessary center precautions. He will benefit from serial debridement during this time.
[2020-01-07 14:00] VITALS: BP 151/55; PULSE 71; RESP 20; TEMP 36.4; BMI 32.3
--- NOTE | 2020-01-07 15:38 | PN.PCM_ITS ---
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 Code(s): L97.513 - Non-pressure chronic ulcer of other part of right foot with necrosis of muscle (2) Peripheral vascular occlusive disease Status: Chronic Code(s): I73.9 - Peripheral vascular disease, unspecified (3) Type 2 diabetes mellitus with diabetic polyneuropathy Status: Chronic Code(s): E11.42 - Type 2 diabetes mellitus with diabetic polyneuropathy (4) Malnutrition Status: Chronic Code(s): E46 - Unspecified protein-calorie malnutrition (5) Lower extremity edema Status: Chronic Code(s): R60.0 - Localized edema Type of Wound Date of Service: 01/07/20 Chief Complaint: Foot ulcer History of Wound: This 74-year-old male follows up for right foot ulcer and his bunion site. He denies fevers, chills, nausea, vomiting, diarrhea, loss of appetite. He denies drainage or redness. He had an epi-fix applied last week and is doing well. He has been offloading as advised. Relates he saw Dr. Calvillo and plans to have venous intervention. Progress of Wound: Improving - Physical Exam Vital Signs Temp Pulse Resp BP 97.5 F L 71 20 H 151/55 H 01/07/20 14:00 01/07/20 14:00 01/07/20 14:00 01/07/20 14:00 General: Alert, Oriented x3, Cooperative, No apparent distress Extremities: No cyanosis, Capillary Refill Less than 3 Seconds, No Calf Tenderness, Diminished Peripheral Pulses, Edema - Lower extremity Skin: Ulcer/ Wound - No purulence, erythema, streaking, odor, infection. There is granulation tissue with a very small area of exposed capsule. There is no probe to bone posterior calf looks very healthy. There is no eschar or necrosis noted. The adjacent skin is hairless and atrophic. Wound Measurements and Assessment WC - Nurse 1 - General Ulcer Measurement Start: 12/24/19 13:56 Freq: Status: Active Protocol: Activity Type Activity Date Activity User E-Sign Co-Sign Detail Recorded Client Recorded Date Recorded By Document 01/07/20 14:00 [facility] [id number] 01/07/20 14:08 [facility] 01/07/20 14:00 Wound Center Nurse 1 [Ulcer Assessment] #5 right hallux -Combined with other wound No -Current Size (cm) - Length 0.9 -Current Size (cm) - Width 0.6 -Current Size (cm) - Depth 0.3 -Total Square Cm 0.54 -Photo Taken No -Epithelialization None Present -Tunneling No -Undermining/Tunneling No -Circular Undermining No -Exudate Amt Small -Exudate Type Serosanguineous -Wound Margin Distinct, Outline Attached -Granulation Amt Small (1-33%) -Granulation Quality [place] -Slough/Fibrin Yes -Necrosis Amt Large (67-100%) -Necrotic Tissue Type Adherent Slough -Texture (Anna-wound Skin Appearance) Assessed,Callus ,Scarring -Moisture (Anna-wound Skin Appearance Assessed, ) Maceration,Dry/ Scaly -Color (Anna-wound Skin Appearance) Assessed,Palor -Temperature (Anna-wound Skin No Abnormality Appearance) (Pt Warm) -Tenderness on Palpation (Anna-wound No Skin Appearance) -Ulcer Cleansing soapy water -Foul Odor after Cleansing No -Anesthetic Used 5% Lidocaine Gel Musculoskeletal: No Tenderness to Palpation of Joints or Extremities, Muscle Wasting Neurological: - - Lack of normal epicritic sensation light touch Psych/Mental Status: Normal Affect, Appropriate Debridement Note Post-Debridement Measurements/Treatment WC - Nurse 2 - General Ulcer CM Notes Start: 12/24/19 13:56 Freq: Status: Active Protocol: Activity Type Activity Date Activity User E-Sign Co-Sign Detail Recorded Client Recorded Date Recorded By Document 12/24/19 14:19 [id number] 12/24/19 14:21 Document 12/31/19 13:48 [id number] 12/31/19 13:50 12/24/19 12/31/19 14:19 13:48 Wound Center Nurse 2 #5 right hallux -Time 14:20 13:49 -Correct Patient Yes Yes -Correct Side, Site, Position Yes Yes -Correct Procedure Yes Yes -Procedure Performed Yes Yes -Type of Procedure Debridement Debridement -Clinical Debridement Subcutaneous Subcutaneous -Post Debridement Size (cm) - Length 1.1 1.8 -Post Debridement Size (cm) - Width 1.1 1 -Post Debridement Size (cm) - Depth 0.2 0.2 -Total Square Cm 1.21 1.8 -Wound/Ulcer Outcome Not Healed Not Healed -Ulcer Cleansing Rinsed/ Rinsed/ Irrigated with Irrigated with Saline Saline -Foul Odor after Cleansing No No -Bioengineered Tissue Yes No -Type of bioengineered Tissue EPIFIX -Expiration Date 09/20/24 -Product Lot Number [id number] -Percent Used 100 -Saline Lot Number [id number] -Bleeding Controlled with Pressure Pressure -Offloading Yes Yes -Type of Offloading Surgical Shoe Surgical Shoe -Treatment Response Procedure Procedure Tolerated Well Tolerated Well Pain Scale: 0-10 Numeric Is Patient Pain Free? Yes Yes Wound debrided: medial first metatarsal head Laterality: Right Wound Grade/Stage: grade 2 Type of Debridement: Excisional debridement Anesthesia Used: 5% Lidocaine Gel Depth: in the subcutaneous layer Percentage of wound debrided: 100 Instrument Used: #15 blade Tissue Removed: devitalized subcutaneous, biofilm, slough, fibrous Severity: Fat Layer Exposed Amount of bleeding with debridement: Mild Bleeding Controlled with: Pressure Patient tolerated procedure well Assessment/Plan Assessment: Right foot ulcer with muscle and capsular tissue exposed. diabetes with neuropathy. vascular disease. malnutrition. Cellulitis resolved Plan: I reviewed and discussed this case with the patient. Subcutaneous excisional debridement was performed with a 15 blade scalpel as noted in the clinical panel. The approval documentation has been received and selected due to the to approve next this will be applied hopefully next week. This is medically necessary for limb salvage. Verbal consent was obtained in this product, epi-fix, was applied according standard protocol. This was tolerated well. This was secured in place with a wound veil and Steri-Strips. A secondary dressing was applied. He was advised to keep this clean, dry, and intact until follow-up next week. The anticipated management and applications were reviewed again today. He is undergoing a comprehensive wound healing plan. The indications, benefits, application plan and anticipated healing time management were discussed in detail. He understands elects to proceed forward. To keep pressure off the site. He already has a surgical shoe and proper use of straps to avoid direct pressure on the site were reviewed again this afternoon. His x-rays were reviewed previously at the foot [facility] ankle center which did not demonstrate any osseous destruction, foreign body, or soft tissue emphysema. Lab work was reviewed after clinic with a white blood cell count of 8.6, C- reactive protein of 17, and sedimentation rate of 70. Trends will be monitored and this demonstrates an inflammatory process is in place and suggests her supports of malnutrition as well. No other gross abnormalities were noted. He was advised he does have some necrotic devitalized tissue and the weekly debridements and Santyl use will help improve this. There is no systemic or lesley local signs of infection however the devitalized tissue is a concern. This to be monitored closely. Advanced imaging or further work-up may be warranted at future visits. It is also noted he has a history of vascular disease with occlusive disease identified even with his updated noninvasive vascular studies performed in early September 2019. I will request Dr. Calvillo's follow-up visit notes and plan if the patient did follow-up. An updated referral was provided. He went for this referral as advised and some intervention procedure recommended. I will review Dr. Calvillo's plan and these have been requested. To follow-up with the wound healing center in 1 week or call sooner if he has any questions, concerns, or deterioration in status or development of infection. I did also offer him telehealth follow-up options next week due to the coronavirus pandemic. He will asked to return to clinic in person and follow the necessary center precautions. He will benefit from serial debridement during this time.
[2020-01-14 13:33] VITALS: BP 136/61; PULSE 62; RESP 16; BMI 32.3
--- NOTE | 2020-01-14 14:48 | PN.PCM_ITS ---
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 He denies fevers, chills, nausea, vomiting, diarrhea, loss of appetite. He denies drainage or redness. He had an epi-fix applied last week and is doing well. He has been offloading as advised. Relates he saw Dr. Calvillo and plans to have venous intervention. Progress of Wound: Improving - Physical Exam Vital Signs Temp Pulse Resp BP 97.5 F L 62 16 136/61 H 01/07/20 14:00 01/14/20 13:33 01/14/20 13:33 01/14/20 13:33 General: Alert, Oriented x3, Cooperative, No apparent distress HEENT: Atraumatic Extremities: No cyanosis, Capillary Refill Less than 3 Seconds, Diminished Peripheral Pulses, Edema Skin: Ulcer/ Wound - No purulence, erythema, string, odor, infection. The adjacent skin is hairless and atrophic. There is improvement in granulation tissue with a small area of exposed white healthy capsule Wound Measurements and Assessment WC - Nurse 1 - General Ulcer Measurement Start: 12/24/19 13:56 Freq: Status: Active Protocol: Activity Type Activity Date Activity User E-Sign Co-Sign Detail Recorded Client Recorded Date Recorded By Document 01/14/20 13:33 [facility] [id number] 01/14/20 13:41 [facility] 01/14/20 13:33 Wound Center Nurse 1 [Ulcer Assessment] #5 right hallux -Combined with other wound No -Current Size (cm) - Length 1.7 -Current Size (cm) - Width 1.2 -Current Size (cm) - Depth 0.3 -Total Square Cm 2.04 -Photo Taken No -Epithelialization None Present -Tunneling No -Undermining/Tunneling No -Circular Undermining No -Exudate Amt Medium -Exudate Type Serosanguineous -Wound Margin Distinct, Outline Attached -Granulation Amt Small (1-33%) -Granulation Quality [place] -Slough/Fibrin Yes -Necrosis Amt Large (67-100%) -Necrotic Tissue Type Adherent Slough -Texture (Anna-wound Skin Appearance) Assessed, Scarring -Moisture (Anna-wound Skin Appearance Assessed, ) Maceration,Dry/ Scaly -Color (Anna-wound Skin Appearance) Assessed,Palor -Temperature (Anna-wound Skin No Abnormality Appearance) (Pt Warm) -Tenderness on Palpation (Anna-wound No Skin Appearance) -Ulcer Cleansing soapy water -Foul Odor after Cleansing No -Anesthetic Used 5% Lidocaine Gel Musculoskeletal: No Tenderness to Palpation of Joints or Extremities, Muscle Wasting, - - Prominent first metatarsal head consistent with bunion deformity Psych/Mental Status: Normal Affect, Appropriate Debridement Note Post-Debridement Measurements/Treatment WC - Nurse 2 - General Ulcer CM Notes Start: 12/24/19 13:56 Freq: Status: Active Protocol: Activity Type Activity Date Activity User E-Sign Co-Sign Detail Recorded Client Recorded Date Recorded By Document 12/24/19 14:19 [id number] 12/24/19 14:21 Document 12/31/19 13:48 [id number] 12/31/19 13:50 Document 01/07/20 16:00 [id number] 01/07/20 16:01 12/24/19 12/31/19 01/07/20 14:19 13:48 16:00 Wound Center Nurse 2 #5 right hallux -Time 14:20 13:49 16:00 -Correct Patient Yes Yes Yes -Correct Side, Site, Position Yes Yes Yes -Correct Procedure Yes Yes Yes -Procedure Performed Yes Yes Yes -Type of Procedure Debridement Debridement Debridement -Clinical Debridement Subcutaneous Subcutaneous Subcutaneous -Post Debridement Size (cm) - Length 1.1 1.8 1.5 -Post Debridement Size (cm) - Width 1.1 1 1.2 -Post Debridement Size (cm) - Depth 0.2 0.2 0.2 -Total Square Cm 1.21 1.8 1.80 -Wound/Ulcer Outcome Not Healed Not Healed Not Healed -Ulcer Cleansing Rinsed/ Rinsed/ Rinsed/ Irrigated with Irrigated with Irrigated with Saline Saline Saline -Foul Odor after Cleansing No No No -Bioengineered Tissue Yes No Yes -Type of bioengineered Tissue EPIFIX EPIFIX -Expiration Date 09/20/24 09/20/24 -Product Lot Number [id number] -Percent Used 100 100 -Saline Lot Number [id number] -Bleeding Controlled with Pressure Pressure Pressure -Offloading Yes Yes Yes -Type of Offloading Surgical Shoe Surgical Shoe Surgical Shoe -Treatment Response Procedure Procedure Procedure Tolerated Well Tolerated Well Tolerated Well Pain Scale: 0-10 Numeric Is Patient Pain Free? Yes Yes Yes Wound debrided: medial forefoot Laterality: Right Wound Grade/Stage: grade 2 Type of Debridement: Excisional debridement Anesthesia Used: 5% Lidocaine Gel Depth: in the subcutaneous layer Percentage of wound debrided: 100 Instrument Used: #15 blade Tissue Removed: fibrous, devitalized subcutaneous, biofilm, slough Severity: Fat Layer Exposed Amount of bleeding with debridement: Mild Bleeding Controlled with: Pressure Patient tolerated procedure well Assessment/Plan Assessment: Right foot ulcer with muscle and capsular tissue exposed. diabetes with neuropathy. vascular disease. malnutrition. Cellulitis resolved Plan: I reviewed and discussed this case with the patient. Subcutaneous excisional debridement was performed with a 15 blade scalpel as noted in the clinical panel. This is medically necessary for limb salvage. Verbal consent was obtained in this product, epi-cord, was applied according standard protocol. This was tolerated well. This was secured in place with a wound veil and Steri-Strips. A secondary dressing was applied. He was advised to keep this clean, dry, and intact until follow-up next week. The anticipated management and applications were reviewed again today. He is undergoing a comprehensive wound healing plan. The indications, benefits, application plan and anticipated healing time management were discussed in detail. He understands elects to proceed forward. To keep pressure off the site. He already has a surgical shoe and proper use of straps to avoid direct pressure on the site were reviewed again this afternoon. His x-rays were reviewed previously at the foot and ankle center which did not demonstrate any osseous destruction, foreign body, or soft tissue emphysema. Lab work was reviewed after clinic with a white blood cell count of 8.6, C-reactive protein of 17, and sedimentation rate of 70. Trends will be monitored and this demonstrates an inflammatory process is in place and suggests her supports of malnutrition as well. No other gross abnormalities w ere noted. He was advised he does have some necrotic devitalized tissue and the weekly debridements and Santyl use will help improve this. There is no systemic or lesley local signs of infection however the devitalized tissue is a concern. This to be monitored closely. Advanced imaging or further work-up may be warranted at future visits. It is also noted he has a history of vascular disease with occlusive disease identified even with his updated noninvasive vascular studies performed in early September 2019. I will request Dr. Calvillo's follow-up visit notes and plan if the patient did follow-up. An updated referral was provided. He went for this referral as advised and some intervention procedure recommended. I will review Dr. Calvillo's plan and these have been requested. To follow-up with the wound healing center in 1 week or call sooner if he has any questions, concerns, or deterioration in status or development of infection. I did also offer him telehealth follow-up options next week due to the coronavirus pandemic. He will asked to return to clinic in person and follow the necessary center precautions. He will benefit from serial debridement during this time.
== END 2020-01-18 23:59 ==
LOC: WC 13:30
PROVIDERS: PCP Family Medicine; Visit Provider Podiatrist
DX: E11.621 Type 2 diabetes mellitus with foot ulcer (principal); L97.513 Non-pressure chronic ulcer of other part of right foot with necrosis of muscle; E11.42 Type 2 diabetes mellitus with diabetic polyneuropathy; E11.51 Type 2 diabetes mellitus with diabetic peripheral angiopathy without gangrene; R60.0 Localized edema; Z79.82 Long term (current) use of aspirin; Z79.4 Long term (current) use of insulin; Z79.899 Other long term (current) drug therapy
CPT/HCPCS: 15275; Q4186; Q4187

== ENCOUNTER → 2020-01-21 14:12 | Outpatient (CLI) | payer MEDICARE, OTHER, SELFPAY ==
[2020-01-21 13:23] VITALS: BMI 32.3
[2020-01-21 14:17] LABS: Bacteria 0 SEEN /hpf (None Seen); Mucous, Urine 0 SEEN /hpf (<or=2+); Red Blood Cells-Urine 0 SEEN /hpf (0-5); Squamous Epithelial Cells - UA 0 SEEN /hpf (0-5); White Blood Cells 0 SEEN /hpf (0-5)
[2020-01-21 15:39] LABS: Color, Urine Yellow (Yellow); Glucose, Dipstick Normal (Normal); Ketone-Dipstick Negative (Negative); Leukocyte Esterase-Dipstick Negative /ul (Negative); Nitrite-Dipstick Negative (Negative); Occult Blood-Urine Negative /ul (Negative); Protein-Dipstick 30 mg/dl (Negative); Specific Gravity, Urine 1.015 (1.002-1.030); Urine Bilirubin Dipstick Negative (Negative); Urine Clarity Clear (Clear); Urine Urobilinogen Normal (Normal)
[2020-01-21 15:42] LABS: Protein, Urine (Random) 26.5 mg/dL (<11.9); Protein:Creat Ratio 257 mg/g CRE (0-200)
[2020-01-21 15:48] LABS: Anion Gap 9 (5-15); BUN 35 mg/dL (7-18); BUN/Creat Ratio 18.7 RATIO (10-20); Calcium,Total 9.3 mg/dL (8.5-10.1); Chloride 104 mmol/L (98-107); Creatinine, Serum 1.87 mg/dL (0.70-1.30); EST Glomerular Filtration Rate 38 mL/min (>60); Est Glom Filt Rate - Afr Amer 46 mL/min (>60); Glucose 173 mg/dL (74-106); Hemoglobin A1c 7.8 % (3.8-5.6); Phosphorus 3.6 mg/dL (2.5-4.9); Potassium 4.6 mmol/L (3.5-5.1); Sodium Level 141 mmol/L (136-145)
[2020-01-21 17:06] LABS: Vitamin D,25 Hydroxy 53.8 ng/mL
[2020-01-22 09:09] LABS: PTHIN 60.9 pg/mL (18.4-80.1)
== END ==
PROVIDERS: PCP Family Medicine; Referring Provider Internal Medicine; Visit Provider Internal Medicine
DX: N18.3 Chronic kidney disease, stage 3 (moderate) (principal); N25.81 Secondary hyperparathyroidism of renal origin; E11.49 Type 2 diabetes mellitus with other diabetic neurological complication
CPT/HCPCS: 15275; 36415; 80048; 81001; 82306; 82570; 83036; 83970; 84100; 84156; 87070; 87075; 87077; 87186; 87205; 87640; 99213; Q4187; G0463

== ENCOUNTER → 2020-01-26 14:48 | Outpatient (CLI) | payer MEDICARE, OTHER, SELFPAY ==
[2019-12-03 15:37] VITALS: BMI 32.3
[2020-01-21 13:23] VITALS: BMI 32.3
--- NOTE | 2020-01-26 14:59 | US_ITS ---
STUDY: RENAL ULTRASOUND - COMPLETE REASON FOR EXAM: Male, 75 years old. Chronic kidney disease stage III. TECHNIQUE: Ultrasound evaluation of the kidneys was performed with real-time and static wall-scale imaging. COMPARISON: March 03, 2014. FINDINGS: RIGHT KIDNEY: Normal location of the right kidney, which is normal in size. The right kidney measures 10.0 x 4.4 x 4.4 cm. There is a normal cortex of the right kidney. The renal cortex measures 1.0 cm. There is no right renal mass or cyst. There are no right renal calculi. There is no right hydronephrosis. DISTAL RIGHT URETER: There is non-visualization of the distal right ureter. There is no demonstrated right ureterovesical junction calculus. There is no demonstrated right ureteral jet. LEFT KIDNEY: Normal location of the left kidney, which is normal in size. The left kidney measures 10.0 x 4.9 x 4.6 cm. There is a normal cortex of the left kidney. The renal cortex measures 1.0 cm. There is no left renal mass or cyst. There are no left renal calculi. There is no left hydronephrosis. DISTAL LEFT URETER: There is non-visualization of the distal left ureter. There is no demonstrated left ureterovesical junction calculus. There is a visualized left ureteral jet. BLADDER: The distended urinary bladder has a volume of 132 ml. There is a normal wall thickness of the distended urinary bladder. There is no demonstrated mass within the urinary bladder. There are no demonstrated bladder calculi. US/Kidney and Bladder IMPRESSION: Normal ultrasound of the kidneys and urinary bladder. Electronically Signed: Dario Miranda MD at 6:51 EDT , Service support ,
== END ==
PROVIDERS: PCP Family Medicine; Visit Provider Internal Medicine
DX: N18.3 Chronic kidney disease, stage 3 (moderate) (principal)
CPT/HCPCS: 76770

== ENCOUNTER 2020-02-11 16:00 | Outpatient (RCR) | payer MEDICARE, OTHER, SELFPAY ==
[2020-01-19 00:29] VITALS: BP 136/61; PULSE 62; RESP 16; TEMP 36.4
[2020-01-21 13:23] VITALS: BP 120/52; PULSE 60; RESP 18; TEMP 36.6; BMI 32.3
--- NOTE | 2020-01-21 15:07 | PN.PCM_ITS ---
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 Code(s): L97.513 - Non-pressure chronic ulcer of other part of right foot with necrosis of muscle (2) Peripheral vascular occlusive disease Status: Chronic Code(s): I73.9 - Peripheral vascular disease, unspecified (3) Type 2 diabetes mellitus with diabetic polyneuropathy Status: Chronic Code(s): E11.42 - Type 2 diabetes mellitus with diabetic polyneuropathy (4) Delayed wound healing Status: Chronic Code(s): T14.8 - Other injury of unspecified body region (5) Venous insufficiency Status: Chronic Type of Wound Date of Service: 01/21/20 Chief Complaint: Foot ulcer History of Wound: This 75-year-old male follows up for right foot ulcer and his bunion site. He denies fevers, chills, nausea, vomiting, diarrhea, loss of appetite. He denies drainage or redness. He had an epi-cord applied last week and is doing well. He has been offloading as advised. Relates he saw Dr. Calvillo and plans to have venous intervention. Progress of Wound: Improving - Physical Exam Vital Signs Temp Pulse Resp BP 97.8 F 60 18 120/52 L 01/21/20 13:23 01/21/20 13:23 01/21/20 13:23 01/21/20 13:23 General: Alert, Oriented x3, Cooperative, No apparent distress HEENT: Atraumatic Extremities: No cyanosis, Capillary Refill Less than 3 Seconds, No Calf Tenderness, Diminished Peripheral Pulses, Edema Skin: Ulcer/ Wound - No purulence, erythema, streaking, odor, infection. Granulation tissue and healthy exposed capsule is still noted in the proximal aspect of the wound bed. The adjacent skin is hairless and atrophic Wound Measurements and Assessment WC - Nurse 1 - General Ulcer Measurement Start: 01/21/20 13:23 Freq: Status: Active Protocol: Activity Type Activity Date Activity User E-Sign Co-Sign Detail Recorded Client Recorded Date Recorded By Document 01/21/20 13:23 RB [id number] 01/21/20 13:25 RB 01/21/20 13:23 Wound Center Nurse 1 [Ulcer Assessment] #5 right hallux -Combined with other wound No -Current Size (cm) - Length 1.5 -Current Size (cm) - Width 0.9 -Current Size (cm) - Depth 0.4 -Total Square Cm 1.35 -Tunneling No -Undermining/Tunneling No -Circular Undermining No -Exudate Amt Medium -Exudate Type Serosanguineous -Wound Margin Thickened & Rolled Under -Granulation Amt Medium (34-66%) -Granulation Quality [place] -Slough/Fibrin Yes -Necrosis Amt Small (1-33%) -Necrotic Tissue Type Adherent Slough -Structure Exposed N/A -Texture (Anna-wound Skin Appearance) Assessed,Callus -Moisture (Anna-wound Skin Appearance Maceration ) -Color (Anna-wound Skin Appearance) Assessed -Temperature (Anna-wound Skin No Abnormality Appearance) (Pt Warm) -Tenderness on Palpation (Anna-wound No Skin Appearance) -Ulcer Cleansing Rinsed/ Irrigated with Saline -Foul Odor after Cleansing No -Anesthetic Used 4% Lidocaine Solution [Edema Assessment] -Lower Limb Edema Present Yes -Right Calf (cm) 35.5 -Right Ankle (cm) 21.5 Musculoskeletal: No Tenderness to Palpation of Joints or Extremities, Muscle Wasting Neurological: - - Lack of normal epicritic sensation to light touch Psych/Mental Status: Normal Affect, Appropriate Debridement Note Wound debrided: medial forefoot Laterality: Right Wound Grade/Stage: grade 2 Type of Debridement: Excisional debridement Anesthesia Used: 5% Lidocaine Gel Depth: in the subcutaneous layer Percentage of wound debrided: 100 Instrument Used: #15 blade Tissue Removed: fibrous, devitalized subcutaneous, biofilm, slough Severity: Fat Layer Exposed Amount of bleeding with debridement: Mild Bleeding Controlled with: Pressure Patient tolerated procedure well Assessment/Plan Assessment: Right foot ulcer with muscle and capsular tissue exposed. diabetes with neuropathy. vascular disease. malnutrition. Cellulitis resolved Plan: I reviewed and discussed this case with the patient. Subcutaneous excisional debridement was performed with a 15 blade scalpel as noted in the clinical panel. This is medically necessary for limb salvage. Verbal consent was obtained in this product, epi-cord, was applied according standard protocol. This was tolerated well. This was secured in place with a wound veil and Steri-Strips. A secondary dressing was applied. He was advised to keep this clean, dry, and intact until follow-up next week. The anticipated management and applications were reviewed again today. He is undergoing a comprehensive wound healing plan. The indications, benefits, application plan and anticipated healing time management were discussed in detail. He understands elects to proceed forward. To keep pressure off the site. He already has a surgical shoe and proper use of straps to avoid direct pressure on the site were reviewed again this afternoon. His x-rays were reviewed previously at the foot and ankle center which did not demonstrate any osseous destruction, foreign body, or soft tissue emphysema. Lab work was reviewed after clinic with a white blood cell count of 8.6, C-reactive protein of 17, and sedimentation rate of 70. Trends will be monitored and this demonstrates an inflammatory process is in place and suggests her supports of malnutrition as well. No other gross abnormalities were noted. He was advised he does have some necrotic devitalized tissue and th e weekly debridements and Santyl use will help improve this. There is no systemic or lesley local signs of infection however the devitalized tissue is a concern. This to be monitored closely. Advanced imaging or further work-up may be warranted at future visits. It is also noted he has a history of vascular disease with occlusive disease identified even with his updated noninvasive vascular studies performed in early September 2019. I will request Dr. Calvillo's follow-up visit notes and plan if the patient did follow-up. An updated referral was provided. He went for this referral as advised and some intervention procedure recommended. I will review Dr. Calvillo's plan and these have been requested. To follow-up with the wound healing center in 1 week or call sooner if he has any questions, concerns, or deterioration in status or development of infection. I did also offer him telehealth follow-up options next week due to the coronavirus pandemic. He will asked to return to clinic in person and follow the necessary center precautions. He will benefit from serial debridement during this time.
[2020-01-28 13:58] VITALS: BP 125/41; PULSE 65; RESP 18; TEMP 36.8; BMI 32.3
--- NOTE | 2020-01-28 21:08 | PCM.WC.PN ---
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 Current Visit: Yes Code(s): L97.513 - Non-pressure chronic ulcer of other part of right foot with necrosis of muscle (2) Peripheral vascular occlusive disease Status: Chronic Current Visit: Yes Code(s): I73.9 - Peripheral vascular disease, unspecified (3) Type 2 diabetes mellitus with diabetic polyneuropathy Status: Chronic Current Visit: Yes Code(s): E11.42 - Type 2 diabetes mellitus with diabetic polyneuropathy (4) Delayed wound healing Status: Chronic Current Visit: Yes Code(s): T14.8 - Other injury of unspecified body region (5) Venous insufficiency Status: Chronic Current Visit: Yes Type of Wound Date of Service: 01/28/20 Chief Complaint: Foot ulcer History of Wound: This 75-year-old male follows up for right foot ulcer and his bunion site. He denies fevers, chills, nausea, vomiting, diarrhea, loss of appetite. He denies drainage or redness. He had an epi-cord applied last week and is doing well. This is still incorporating. He has been offloading as advised. Relates he saw Dr. Calvillo and plans to have venous intervention. Progress of Wound: Improving - Physical Exam Vital Signs Temp Pulse Resp BP 98.2 F 65 18 125/41 H 01/28/20 13:58 01/28/20 13:58 01/28/20 13:58 01/28/20 13:58 General: Alert, Oriented x3, Cooperative Extremities: No cyanosis, Capillary Refill Less than 3 Seconds, No Calf Tenderness, Diminished Peripheral Pulses, Edema Skin: Ulcer/ Wound - No purulence, erythema, streaking, odor, infection. Epi-cord is incorporating well and is well adhered. The adjacent skin is atrophic and hairless. Wound Measurements and Assessment WC - Nurse 1 - General Ulcer Measurement Start: 01/21/20 13:23 Freq: Status: Active Protocol: Activity Type Activity Date Activity User E-Sign Co-Sign Detail Recorded Client Recorded Date Recorded By Document 01/28/20 13:58 [facility] [id number] 01/28/20 14:03 BM 01/28/20 13:58 Wound Center Nurse 1 [Ulcer Assessment] #5 right hallux -Combined with other wound No -Current Size (cm) - Length 0.1 -Current Size (cm) - Width 0.1 -Current Size (cm) - Depth 0.1 -Total Square Cm 0.01 -Photo Taken No [Edema Assessment] -Lower Limb Edema Present Yes -Right Calf (cm) 35.1 -Right Ankle (cm) 21.2 - Nurse 2 - General Ulcer CM Notes Start: 01/21/20 13:23 Freq: Status: Active Protocol: Activity Type Activity Date Activity User E-Sign Co-Sign Detail Recorded Client Recorded Date Recorded By Document 01/28/20 14:25 [id number] 01/28/20 14:26 01/28/20 14:25 Wound Center Nurse 2 [Procedure/Treatment] #5 right hallux -Correct Patient No -Correct Side, Site, Position No -Correct Procedure No -Procedure Performed No -Wound/Ulcer Outcome Not Healed -Bleeding Controlled with Pressure -Offloading Yes -Type of Offloading Surgical Shoe -Treatment Response Procedure Tolerated Well [See Physician Procedure note for Specifics] Pain Scale: 0-10 Numeric [Pain] -Is Patient Pain Free? Yes Musculoskeletal: No Tenderness to Palpation of Joints or Extremities, Muscle Wasting Neurological: - - Lack of normal epicritic sensation light touch is consistent with neuropathy status Psych/Mental Status: Normal Affect, Appropriate Debridement Note Post-Debridement Measurements/Treatment - Nurse 2 - General Ulcer CM Notes Start: 01/21/20 13:23 Freq: Status: Active Protocol: Activity Type Activity Date Activity User E-Sign Co-Sign Detail Recorded Client Recorded Date Recorded By Document 01/21/20 18:03 PL [id number] 01/21/20 18:05 PL Document 01/28/20 14:25 [id number] 01/28/20 14:26 01/21/20 01/28/20 18:03 14:25 Wound Center Nurse 2 #5 right hallux -Time 13:42 -Correct Patient Yes No -Correct Side, Site, Position Yes No -Correct Procedure Yes No -Procedure Performed Yes No -Type of Procedure Debridement -Clinical Debridement Subcutaneous -Post Debridement Size (cm) - Length 1.2 -Post Debridement Size (cm) - Width 1.7 -Post Debridement Size (cm) - Depth 0.2 -Total Square Cm 2.04 -Wound/Ulcer Outcome Not Healed Not Healed -Ulcer Cleansing Rinsed/ Irrigated with Saline -Foul Odor after Cleansing No -Type of bioengineered Tissue EPICORD -Expiration Date 08/20/24 -Product Lot Number [id number] -Percent Used 100 -Saline Lot Number [id number] -Bleeding Controlled with Pressure Pressure -Offloading Yes -Type of Offloading Surgical Shoe -Treatment Response Procedure Procedure Tolerated Well Tolerated Well Pain Scale: 0-10 Numeric Is Patient Pain Free? Yes Yes Laterality: Right No debridement was completed today - [facility] is incorporating Assessment/Plan Active Problems (Last Reviewed 06/12/19 @ 11:08 by Carly Mckeon) Ulcer of right foot with necrosis of muscle (Chronic) Peripheral vascular occlusive disease (Chronic) Type 2 diabetes mellitus with diabetic polyneuropathy (Chronic) Delayed wound healing (Chronic) Venous insufficiency (Chronic) Assessment: Right foot ulcer with muscle and capsular tissue exposed. diabetes with neuropathy. vascular disease. malnutrition. Cellulitis resolved Plan: I reviewed and discussed this case with the patient. The epi-cord that was applied last week was left intact to continue incorporation. The wound veil and overlying Steri-Strips are still intact. A secondary dressing was applied. He was advised to keep this clean, dry, and intact until follow-up next week. The anticipated management and applications were reviewed again today. He is undergoing a comprehensive wound healing plan. The indications, benefits, application plan and anticipated healing time management were discussed in detail. He understands elects to proceed forward. To keep pressure off the site. He already has a surgical shoe and proper use of straps to avoid direct pressure on the site were reviewed again this afternoon. His x-rays were reviewed previously at [facility] which did not demonstrate any osseous destruction, foreign body, or soft tissue emphysema. Lab work was reviewed after clinic with a white blood cell count of 8.6, C-reactive protein of 17, and sedimentation rate of 70. Trends will be monitored and this demonstrates an inflammatory process is in place and suggests her supports of malnutrition as well. No other gross abnormalities were noted. He was advised he does have some necrotic devitalized tissue and the weekly debridements and Santyl use will help improve this. There is no systemic or lesley local signs of infection however the devitalized tissue is a concern. This to be monitored closely. Advanced imaging or further work-up may be warranted at future visits. It is also noted he has a history of vascular disease with occlusive disease identified even with his updated noninvasive vascular studies performed in early September 2019. I will request Dr. Calvillo's follow-up visit notes and plan if the patient did follow-up. An updated referral was provided. He went for this referral as advised and some intervention procedure recommended. I will review Dr. Calvillo's plan and these have been requested. To follow-up with the wound healing center in 1 week or call sooner if he has any questions, concerns, or deterioration in status or development of infection. I answered his questions.
[2020-02-04 13:57] VITALS: BP 130/43; PULSE 58; RESP 20; TEMP 37; BMI 32.3
--- NOTE | 2020-02-04 17:20 | PCM.WC.PN ---
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 Current Visit: Yes Code(s): L97.513 - Non-pressure chronic ulcer of other part of right foot with necrosis of muscle (2) Peripheral vascular occlusive disease Status: Chronic Current Visit: Yes Code(s): I73.9 - Peripheral vascular disease, unspecified (3) Type 2 diabetes mellitus with diabetic polyneuropathy Status: Chronic Current Visit: Yes Code(s): E11.42 - Type 2 diabetes mellitus with diabetic polyneuropathy (4) Delayed wound healing Status: Chronic Current Visit: Yes Code(s): T14.8 - Other injury of unspecified body region (5) Venous insufficiency Status: Chronic Current Visit: Yes Type of Wound Date of Service: 02/04/20 Chief Complaint: Foot ulcer History of Wound: This 75-year-old male follows up for right foot ulcer and his bunion site. He denies fevers, chills, nausea, vomiting, diarrhea, loss of appetite. He denies drainage or redness. He had an epi-cord applied two weeks ago. He started contralateral limb venous intervention with dr. ho. Progress of Wound: Improving - Physical Exam Vital Signs Temp Pulse Resp BP 98.6 F 58 L 20 H 130/43 H 02/04/20 13:57 02/04/20 13:57 02/04/20 13:57 02/04/20 13:57 General: Alert, Oriented x3, Cooperative, No apparent distress HEENT: Atraumatic Extremities: No cyanosis, Capillary Refill Less than 3 Seconds, No Calf Tenderness, Diminished Peripheral Pulses Skin: Ulcer/ Wound - no purulence, erythema, streaking, odor infection. peripherl epithelialization noted. small area of exposed capsule continues Wound Measurements and Assessment WC - Nurse 1 - General Ulcer Measurement Start: 01/21/20 13:23 Freq: Status: Active Protocol: Activity Type Activity Date Activity User E-Sign Co-Sign Detail Recorded Client Recorded Date Recorded By Document 02/04/20 13:57 [facility] [id number] 02/04/20 14:07 [facility] 02/04/20 13:57 Wound Center Nurse 1 [Ulcer Assessment] #5 right hallux -Combined with other wound No -Current Size (cm) - Length 1.3 -Current Size (cm) - Width 0.8 -Current Size (cm) - Depth 0.4 -Total Square Cm 1.04 -Photo Taken No -Epithelialization None Present -Tunneling No -Undermining/Tunneling No -Circular Undermining No -Exudate Amt Small -Exudate Type Serosanguineous -Wound Margin Distinct, Outline Attached -Granulation Amt Small (1-33%) -Granulation Quality Red -Slough/Fibrin Yes -Necrosis Amt Large (67-100%) -Necrotic Tissue Type Adherent Slough -Texture (Anna-wound Skin Appearance) Assessed, Scarring -Moisture (Anna-wound Skin Appearance Assessed, ) Maceration,Dry/ Scaly -Color (Anna-wound Skin Appearance) Assessed, Erythema -Temperature (Anna-wound Skin No Abnormality Appearance) (Pt Warm) -Tenderness on Palpation (Anna-wound No Skin Appearance) -Ulcer Cleansing soapy water -Foul Odor after Cleansing No -Anesthetic Used 5% Lidocaine Gel [Edema Assessment] -Lower Limb Edema Present No -Right Calf (cm) 35.2 -Right Ankle (cm) 21 WC - Nurse 2 - General Ulcer CM Notes Start: 01/21/20 13:23 Freq: Status: Active Protocol: Activity Type Activity Date Activity User E-Sign Co-Sign Detail Recorded Client Recorded Date Recorded By Document 02/04/20 14:32 [id number] [id number] 02/04/20 14:35 02/04/20 14:32 Wound Center Nurse 2 [Procedure/Treatment] #5 right hallux -Time 14:33 -Correct Patient Yes -Correct Side, Site, Position Yes -Correct Procedure Yes -Procedure Performed Yes -Type of Procedure Debridement -Clinical Debridement Subcutaneous -Post Debridement Size (cm) - Length 1.4 -Post Debridement Size (cm) - Width 0.8 -Post Debridement Size (cm) - Depth 0.4 -Total Square Cm 1.12 -Wound/Ulcer Outcome Not Healed -Ulcer Cleansing Rinsed/ Irrigated with Saline -Foul Odor after Cleansing No -Bioengineered Tissue Yes -Type of bioengineered Tissue EPICORD -Expiration Date 08/20/24 -Product Lot Number [id number] -Percent Used 100 -Saline Lot Number [id number] -Bleeding Controlled with Pressure -Offloading Yes -Type of Offloading Surgical Shoe -Treatment Response Procedure Tolerated Well [See Physician Procedure note for Specifics] Pain Scale: 0-10 Numeric [Pain] -Is Patient Pain Free? Yes Musculoskeletal: No Tenderness to Palpation of Joints or Extremities, Muscle Wasting Neurological: - - abnormal epicritic sensation Psych/Mental Status: Normal Affect, Appropriate Debridement Note Post-Debridement Measurements/Treatment WC - Nurse 2 - General Ulcer CM Notes Start: 01/21/20 13:23 Freq: Status: Active Protocol: Activity Type Activity Date Activity User E-Sign Co-Sign Detail Recorded Client Recorded Date Recorded By Document 01/21/20 18:03 [id number] 01/21/20 18:05 PL Document 01/28/20 14:25 [id number] 01/28/20 14:26 Document 02/04/20 14:32 [id number] 02/04/20 14:35 01/21/20 01/28/20 02/04/20 18:03 14:25 14:32 Wound Center Nurse 2 #5 right hallux -Time 13:42 14:33 -Correct Patient Yes No Yes -Correct Side, Site, Position Yes No Yes -Correct Procedure Yes No Yes -Procedure Performed Yes No Yes -Type of Procedure Debridement Debridement -Clinical Debridement Subcutaneous Subcutaneous -Post Debridement Size (cm) - Length 1.2 1.4 -Post Debridement Size (cm) - Width 1.7 0.8 -Post Debridement Size (cm) - Depth 0.2 0.4 -Total Square Cm 2.04 1.12 -Wound/Ulcer Outcome Not Healed Not Healed Not Healed -Ulcer Cleansing Rinsed/ Rinsed/ Irrigated with Irrigated with Saline Saline -Foul Odor after Cleansing No No -Bioengineered Tissue Yes -Type of bioengineered Tissue EPICORD EPICORD -Expiration Date 08/20/24 08/20/24 -Product Lot Number [id number] -Percent Used 100 100 -Saline Lot Number [id number] -Bleeding Controlled with Pressure Pressure Pressure -Offloading Yes Yes -Type of Offloading Surgical Shoe Surgical Shoe -Treatment Response Procedure Procedure Procedure Tolerated Well Tolerated Well Tolerated Well Pain Scale: 0-10 Numeric Is Patient Pain Free? 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 diabetes with neuropathy. vascular disease. malnutrition. Cellulitis resolved Plan: I reviewed and discussed this case with the patient. the ulcer was debrided as noted in the clinicl panel. Additional epicord was applied today after verbal consent. The wound veil and overlying Steri-Strips were also applied. He tolerated this well. A culture was obtained (aerobic, anearobic, mrsa pcr) to evaluate for any bacterial contamination or colonization which may be slowing down the healing process. A secondary dressing was applied. He was advised to keep this clean, dry, and intact until follow-up next week. The anticipated management and applications were reviewed again today. He is undergoing a comprehensive wound healing plan. The indications, benefits, application plan and anticipated healing time management were discussed in detail. He understands elects to proceed forward. To keep pressure off the site. He already has a surgical shoe and proper use of straps to avoid direct pressure on the site were reviewed again this afternoon. His x-rays were reviewed previously at the foot [facility] ankle center which did not demonstrate any osseous destruction, foreign body, or soft tissue emphysema. Lab work was reviewed after clinic with a white blood cell count of 8.6, C-reactive protein of 17, and sedimentation rate of 70. Trends will be monitored and this demonstrates an inflammatory process is in place and suggests her supports of malnutrition as well. No other gross abnormalities were noted. He was advised he does have some necrotic devitalized tissue and the weekly debridements and Santyl use will help improve this. There is no systemic or lesley local signs of infection however the devitalized tissue is a concern. This to be monitored closely. Advanced imaging or further work-up may be warranted at future visits. It is also noted he has a history of vascular disease with occlusive disease identified even with his updated noninvasive vascular studies performed in early September 2019. I will request Dr. Ho's follow-up visit notes and plan if the patient did follow-up. An updated referral was provided. He went for this referral as advised and some intervention procedure recommended. I will review Dr. Ho's plan and these have been requested. To follow-up with the wound healing center in 1 week or call sooner if he has any questions, concerns, or deterioration in status or development of infection. I answered his questions.
[2020-02-09 11:29] LABS: M R Staph aureus DNA By PCR Negative (Negative); Probe Check PASS; Specimen Processing Control PASS; Staph aureus DNA By PCR NEGATIVE (Negative)
[2020-02-11 16:18] VITALS: BP 140/50; PULSE 57; RESP 20; TEMP 36.1; BMI 32.3
--- NOTE | 2020-02-11 16:36 | PN.PCM_ITS ---
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 Code(s): L97.513 - Non-pressure chronic ulcer of other part of right foot with necrosis of muscle (2) Peripheral vascular occlusive disease Status: Chronic Code(s): I73.9 - Peripheral vascular disease, unspecified (3) Type 2 diabetes mellitus with diabetic polyneuropathy Status: Chronic Code(s): E11.42 - Type 2 diabetes mellitus with diabetic polyneuropathy (4) Delayed wound healing Status: Chronic Code(s): T14.8 - Other injury of unspecified body region (5) Venous insufficiency Status: Chronic (6) Ulcer of left lower extremity with fat layer exposed Status: Acute Code(s): L97.922 - Non-pressure chronic ulcer of unspecified part of left lower leg with fat layer exposed Type of Wound Date of Service: 02/11/20 Chief Complaint: Foot ulcer History of Wound: This 75-year-old male follows up for right foot ulcer and his bunion site. He denies fevers, chills, nausea, vomiting, diarrhea, loss of appetite. He denies drainage or redness. His epi-cord is intact and is incorporating well. He started contralateral limb venous intervention with dr. ho. She has a new ulcer to the left leg with an onset of Sunday. He is not sure if he bumped this. He does have some increased swelling recently. He denies redness or odor. Progress of Wound: Right foot improving. New left leg ulcer - Physical Exam Vital Signs Temp Pulse Resp BP 96.9 F L 57 L 20 H 140/50 H 02/11/20 16:18 02/11/20 16:18 02/11/20 16:18 02/11/20 16:18 General: Alert, Oriented x3, Cooperative, No apparent distress HEENT: Atraumatic Extremities: No cyanosis, Capillary Refill Less than 3 Seconds, No Calf Tenderness, Diminished Peripheral Pulses, Edema - Left increased Stable right and mild Skin: Ulcer/ Wound - No purulence, erythema, streaking, odor, infection bilateral. Epi-cord is incorporating well the right side. New skin discontinuity to left anterior leg with pale granular base Wound Measurements and Assessment WC - Nurse 1 - General Ulcer Measurement Start: 01/21/20 13:23 Freq: Status: Active Protocol: Activity Type Activity Date Activity User E-Sign Co-Sign Detail Recorded Client Recorded Date Recorded By Document 02/11/20 16:18 [id number] 02/11/20 16:21 02/11/20 16:18 Wound Center Nurse 1 [Ulcer Assessment] #5 right hallux -Combined with other wound No Musculoskeletal: No Tenderness to Palpation of Joints or Extremities, Muscle Wasting Neurological: - - Lack of normal epicritic sensation light touch is consistent with neuropathy status Psych/Mental Status: Normal Affect, Appropriate Debridement Note Post-Debridement Measurements/Treatment WC - Nurse 2 - General Ulcer CM Notes Start: 01/21/20 13:23 Freq: Status: Active Protocol: Activity Type Activity Date Activity User E-Sign Co-Sign Detail Recorded Client Recorded Date Recorded By Document 01/21/20 18:03 [id number] 01/21/20 18:05 Document 01/28/20 14:25 [id number] 01/28/20 14:26 Document 02/04/20 14:32 [id number] 02/04/20 14:35 01/21/20 01/28/20 02/04/20 18:03 14:25 14:32 Wound Center Nurse 2 #5 right hallux -Time 13:42 14:33 -Correct Patient Yes No Yes -Correct Side, Site, Position Yes No Yes -Correct Procedure Yes No Yes -Procedure Performed Yes No Yes -Type of Procedure Debridement Debridement -Clinical Debridement Subcutaneous Subcutaneous -Post Debridement Size (cm) - Length 1.2 1.4 -Post Debridement Size (cm) - Width 1.7 0.8 -Post Debridement Size (cm) - Depth 0.2 0.4 -Total Square Cm 2.04 1.12 -Wound/Ulcer Outcome Not Healed Not Healed Not Healed -Ulcer Cleansing Rinsed/ Rinsed/ Irrigated with Irrigated with Saline Saline -Foul Odor after Cleansing No No -Bioengineered Tissue Yes -Type of bioengineered Tissue EPICORD EPICORD -Expiration Date 08/20/24 08/20/24 -Product Lot Number [id number] -Percent Used 100 100 -Saline Lot Number [id number] -Bleeding Controlled with Pressure Pressure Pressure -Offloading Yes Yes -Type of Offloading Surgical Shoe Surgical Shoe -Treatment Response Procedure Procedure Procedure Tolerated Well Tolerated Well Tolerated Well Pain Scale: 0-10 Numeric Is Patient Pain Free? Yes Yes Yes Wound debrided: leg Laterality: Left Tissue Removed: fibrous, devitalized subcutaneous, biofilm, slough No debridement was completed today - Additional Wound Wound debrided: medial forefoot Laterality: Right Patient tolerated procedure: - - not debrided; epicord is incorporating Assessment/Plan Assessment: Right foot ulcer with muscle and capsular tissue exposed. New left leg ulcer with fat layer exposed, no infection. diabetes with neuropathy. vascular disease. malnutrition. Cellulitis resolved Plan: I reviewed and discussed this case with the patient. the epi-cord that was applied last week is incorporating well this was left intact. Additional debridement and application of advanced wound healing product will be considered again next week. A culture was obtained previously (aerobic, anearobic, mrsa pcr) to evaluate for any bacterial contamination or colonization which may be slowing down the healing process. A secondary dressing was applied. He was advised to keep this clean, dry, and intact until follow-up next week. The anticipated management and applications were reviewed again today. To change the left leg dressing daily with hydrogel and Adaptic. Debridement will be considered next week. He is undergoing a comprehensive wound healing plan. The indications, benefits, application plan and anticipated healing time management were discussed in detail. He understands elects to proceed forward. To keep pressure off the site. He already has a surgical shoe and proper use of straps to avoid direct pressure on the site were reviewed again this afternoon. His x- rays were reviewed previously at the foot and ankle center which did not demonstrate any osseous destruction, foreign body, or soft tissue emphysema. Lab work was reviewed after clinic with a white blood cell count of 8.6, C- reactive protein of 17, and sedimentation rate of 70. Trends will be monitored and this demonstrates an inflammatory process is in place and suggests her supports of malnutrition as well. No other gross abnormalities were noted. He was advised he does have some necrotic devitalized tissue and the weekly debridements and Santyl use will help improve this. There is no systemic or lesley local signs of infection however the devitalized tissue is a concern. This to be monitored closely. Advanced imaging or further work-up may be warranted at future visits. It is also noted he has a history of vascular disease with occlusive disease identified even with his updated noninvasive vascular studies performed in early September 2019. I will request Dr. oH's follow-up visit notes and plan if the patient did follow-up. An updated referral was provided. He went for this referral as advised and some intervention procedure recommended. I will review Dr. Ho's plan and these have been requested. To follow-up with the wound healing center in 1 week or call sooner if he has any questions, concerns, or deterioration in status or development of infection. I answered his questions.
== END 2020-02-17 23:59 ==
LOC: WC 16:00
PROVIDERS: PCP Family Medicine; Visit Provider Podiatrist
DX: E11.621 Type 2 diabetes mellitus with foot ulcer (principal); L97.513 Non-pressure chronic ulcer of other part of right foot with necrosis of muscle; I73.9 Peripheral vascular disease, unspecified; E11.42 Type 2 diabetes mellitus with diabetic polyneuropathy; I87.2 Venous insufficiency (chronic) (peripheral); E46 Unspecified protein-calorie malnutrition; L97.922 Non-pressure chronic ulcer of unspecified part of left lower leg with fat layer exposed
CPT/HCPCS: 15275; Q4187

== ENCOUNTER 2020-03-17 15:00 | Outpatient (RCR) | payer MEDICARE, OTHER, SELFPAY ==
[2020-02-18 00:28] VITALS: BP 140/50; PULSE 57; RESP 20; TEMP 36.1
[2020-02-18 16:07] VITALS: BP 121/49; PULSE 20; RESP 20; TEMP 36.7; BMI 32.3
--- NOTE | 2020-02-18 16:50 | PCM.WC.PN ---
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 Current Visit: Yes Code(s): L97.513 - Non-pressure chronic ulcer of other part of right foot with necrosis of muscle (3) Ulcer of left lower extremity with fat layer exposed Status: Acute Current Visit: Yes Code(s): L97.922 - Non-pressure chronic ulcer of unspecified part of left lower leg with fat layer exposed (4) Peripheral vascular occlusive disease Status: Chronic Current Visit: Yes Code(s): I73.9 - Peripheral vascular disease, unspecified (5) Delayed wound healing Status: Chronic Current Visit: Yes Code(s): T14.8 - Other injury of unspecified body region (6) Venous insufficiency Status: Chronic Current Visit: Yes Type of Wound Date of Service: 02/18/20 Chief Complaint: Foot ulcer History of Wound: This 75-year-old male follows up for right foot ulcer and his bunion site. He denies fevers, chills, nausea, vomiting, diarrhea, loss of appetite. He denies drainage or redness. He has been undergoing limb venous intervention with Dr. Calvillo. He denies redness or odor. He denies drainage to his left leg and thinks that this ulcer site is healed. He is also started on antibiotics because he had pathological bacterial growth in his chronic wound site that has been demonstrating delayed healing. He denies diarrhea or other known side effects. Progress of Wound: Right foot improving. Healed left leg ulcer - Physical Exam Vital Signs Temp Pulse Resp BP 98.0 F 20 L 20 H 121/49 H 02/18/20 16:07 02/18/20 16:07 02/18/20 16:07 02/18/20 16:07 General: Alert, Oriented x3, Cooperative, No apparent distress HEENT: Atraumatic Extremities: No cyanosis, Capillary Refill Less than 3 Seconds, No Calf Tenderness, Diminished Peripheral Pulses, Edema - Decreased Skin: Ulcer/ Wound - Full epithelialization to left leg. There is no erythema odor or streaking to the right foot ulcer however there is continued delayed with minimal exposure of capsule. There is peripheral pale granular base and the adjacent skin is also hairless and atrophic Wound Measurements and Assessment WC - Nurse 1 - General Ulcer Measurement Start: 02/18/20 16:07 Freq: Status: Active Protocol: Activity Type Activity Date Activity User E-Sign Co-Sign Detail Recorded Client Recorded Date Recorded By Document 02/18/20 16:07 DV [id number] 02/18/20 16:17 DV 02/18/20 16:07 Wound Center Nurse 1 [Ulcer Assessment] 6 left [place] -Combined with other wound No -Current Size (cm) - Length 0.1 -Current Size (cm) - Width 0.1 -Current Size (cm) - Depth 0.1 -Total Square Cm 0.01 -Photo Taken No -Epithelialization None Present -Tunneling No -Undermining/Tunneling No -Circular Undermining No -Classification - Thickness Full Thickness without Exposed Support Structure -Exudate Amt None Present -Wound Margin Indistinct, Non -Visible -Granulation Amt None Present (0 %) -Granulation Quality N/A -Slough/Fibrin Yes -Necrosis Amt Medium (34-66%) -Necrotic Tissue Type Adherent Slough -Structure Exposed None/Limited to Skin Breakdown -Texture (Anna-wound Skin Appearance) No Abnormality, Assessed -Moisture (Anna-wound Skin Appearance No Abnormality, ) Assessed -Color (Anna-wound Skin Appearance) No Abnormality, Assessed -Temperature (Anna-wound Skin No Abnormality Appearance) (Pt Warm) -Tenderness on Palpation (Anna-wound No Skin Appearance) -Foul Odor after Cleansing No -Anesthetic Used 4% Lidocaine Solution #5 right hallux -Combined with other wound No -Current Size (cm) - Length 1.0 -Current Size (cm) - Width 0.7 -Current Size (cm) - Depth 0.2 -Total Square Cm 0.70 -Photo Taken No -Epithelialization None Present -Tunneling No -Undermining/Tunneling No -Circular Undermining No -Classification - Thickness Full Thickness without Exposed Support Structure -Exudate Amt Medium -Exudate Type Serous -Wound Margin Indistinct, Non -Visible -Granulation Amt None Present (0 %) -Granulation Quality N/A -Slough/Fibrin Yes -Necrosis Amt Large (67-100%) -Necrotic Tissue Type Adherent Slough -Structure Exposed None/Limited to Skin Breakdown -Texture (Anna-wound Skin Appearance) No Abnormality, Assessed -Moisture (Anna-wound Skin Appearance Assessed, ) Weeping -Color (Anna-wound Skin Appearance) No Abnormality, Assessed -Temperature (Anna-wound Skin No Abnormality Appearance) (Pt Warm) -Tenderness on Palpation (Anna-wound No Skin Appearance) -Foul Odor after Cleansing No -Anesthetic Used 4% Lidocaine Solution [Edema Assessment] -Lower Limb Edema Present No -Right Calf (cm) 35.2 -Point of measurement (cm from the 33.5 medial instep) -Right Ankle (cm) 23.0 -Point of Measurement (cm from the 11.0 medial instep) -Left Calf (cm) 35.4 -Point of measurement (cm from the 31.0 medial instep) -Left Ankle (cm) 20.5 -Point of Measurement (cm from the 11.0 medial instep) WC - Nurse 2 - General Ulcer CM Notes Start: 02/18/20 16:07 Freq: Status: Active Protocol: Activity Type Activity Date Activity User E-Sign Co-Sign Detail Recorded Client Recorded Date Recorded By Document 02/18/20 16:37 DORA [id number] 02/18/20 16:38 DORA 02/18/20 16:37 Wound Center Nurse 2 [Procedure/Treatment] 6 left [place] -Correct Patient No -Correct Side, Site, Position No -Correct Procedure No -Procedure Performed No -Post Debridement Size (cm) - Length 0 -Post Debridement Size (cm) - Width 0 -Post Debridement Size (cm) - Depth 0 -Total Square Cm 0 -Wound/Ulcer Outcome Healed- Epithelialized #5 right hallux -Time 16:38 -Correct Patient Yes -Correct Side, Site, Position Yes -Correct Procedure Yes -Procedure Performed Yes -Type of Procedure Debridement -Clinical Debridement Subcutaneous -Post Debridement Size (cm) - Length 1.0 -Post Debridement Size (cm) - Width 0.8 -Post Debridement Size (cm) - Depth 0.2 -Total Square Cm 0.80 -Wound/Ulcer Outcome Not Healed -Ulcer Cleansing Rinsed/ Irrigated with Saline -Foul Odor after Cleansing No -Bioengineered Tissue No -Bleeding Controlled with Pressure -Offloading Yes -Type of Offloading Surgical Shoe -Treatment Response Procedure Tolerated Well [See Physician Procedure note for Specifics] Pain Scale: 0-10 Numeric [Pain] -Is Patient Pain Free? Yes Musculoskeletal: No Tenderness to Palpation of Joints or Extremities, Muscle Wasting Neurological: - - Lack of normal epicritic sensation Psych/Mental Status: Normal Affect, Appropriate Debridement Note Post-Debridement Measurements/Treatment WC - Nurse 2 - General Ulcer CM Notes Start: 02/18/20 16:07 Freq: Status: Active Protocol: Activity Type Activity Date Activity User E-Sign Co-Sign Detail Recorded Client Recorded Date Recorded By Document 02/18/20 16:37 DORA [id number] 02/18/20 16:38 DORA 02/18/20 16:37 Wound Center Nurse 2 6 left [place] -Correct Patient No -Correct Side, Site, Position No -Correct Procedure No -Procedure Performed No -Post Debridement Size (cm) - Length 0 -Post Debridement Size (cm) - Width 0 -Post Debridement Size (cm) - Depth 0 -Total Square Cm 0 -Wound/Ulcer Outcome Healed- Epithelialized #5 right hallux -Time 16:38 -Correct Patient Yes -Correct Side, Site, Position Yes -Correct Procedure Yes -Procedure Performed Yes -Type of Procedure Debridement -Clinical Debridement Subcutaneous -Post Debridement Size (cm) - Length 1.0 -Post Debridement Size (cm) - Width 0.8 -Post Debridement Size (cm) - Depth 0.2 -Total Square Cm 0.80 -Wound/Ulcer Outcome Not Healed -Ulcer Cleansing Rinsed/ Irrigated with Saline -Foul Odor after Cleansing No -Bioengineered Tissue No -Bleeding Controlled with Pressure -Offloading Yes -Type of Offloading Surgical Shoe -Treatment Response Procedure Tolerated Well Pain Scale: 0-10 Numeric Is Patient Pain Free? 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 New left leg ulcer is healed today. diabetes with neuropathy. vascular disease. malnutrition. Bacterial colonization right foot Plan: I reviewed and discussed this case with the patient. Debridement was performed as noted in the clinical panel. A culture was obtained previously (aerobic, anearobic, mrsa pcr) to evaluate for any bacterial contamination or colonization which may be slowing down the healing process. Bacterial growth was identified and he was started on oral antibiotics. I called him at the end of last week and this was initiated. He was advised to complete the course and to wash with his foot with antimicrobial soap. Adressing was applied today; to change daily. The anticipated management and applications were reviewed again today. His left limb is healed today and he was advised to discontinue dressings. To keep pressure off the site. He already has a surgical shoe and proper use of straps to avoid direct pressure on the site were reviewed again this afternoon. His x-rays were reviewed previously at the foot and ankle center which did not demonstrate any osseous destruction, foreign body, or soft tissue emphysema. Lab work was reviewed after clinic with a white blood cell count of 8.6, C-reactive protein of 17, and sedimentation rate of 70. Trends will be monitored and this demonstrates an inflammatory process is in place and suggests her supports of malnutrition as well. No other gross abnormalities were noted. There is no systemic or lesley local signs of infection however the devitalized tissue is a concern. This to be monitored closely. It is also noted he has a history of vascular disease with occlusive disease identified even with his updated noninvasive vascular studies performed in early September 2019. Arterial intervention is not planned at this time. He also has venous disease and has started undergoing intervention with Dr. Calvillo for this condition. This is going well and he has reduction in leg edema. To follow-up with the wound healing center in 1 week or call sooner if he has any questions, concerns, or deterioration in status or development of infection. I answered his questions.
[2020-02-25 14:56] VITALS: BP 128/66; PULSE 62; RESP 18; TEMP 36.6; BMI 32.3
--- NOTE | 2020-02-25 16:32 | PN.PCM_ITS ---
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 Code(s): L97.513 - Non-pressure chronic ulcer of other part of right foot with necrosis of muscle (2) Colonization status Status: Acute Code(s): Z22.9 - Carrier of infectious disease, unspecified (3) Peripheral vascular occlusive disease Status: Chronic Code(s): I73.9 - Peripheral vascular disease, unspecified (4) Delayed wound healing Status: Chronic Code(s): T14.8 - Other injury of unspecified body region (5) Venous insufficiency Status: Chronic (6) Type 2 diabetes mellitus with diabetic polyneuropathy Status: Chronic Code(s): E11.42 - Type 2 diabetes mellitus with diabetic polyneuropathy Type of Wound Date of Service: 02/25/20 Chief Complaint: Foot ulcer History of Wound: This 75-year-old male follows up for right foot ulcer and his bunion site. He denies fevers, chills, nausea, vomiting, diarrhea, loss of appetite. He denies drainage or redness. He has been undergoing limb venous intervention with Dr. Calvillo. He denies redness or odor. He denies drainage to his left leg and thinks that this ulcer site is healed. He is also started on antibiotics because he had pathological bacterial growth in his chronic wound site that has been demonstrating delayed healing. He denies diarrhea or other known side effects. He has 1 day left to complete this course as advised. Progress of Wound: Right foot improving - Physical Exam Vital Signs Temp Pulse Resp BP 97.9 F 62 18 128/66 H 02/25/20 14:56 02/25/20 14:56 02/25/20 14:56 02/25/20 14:56 General: Alert, Oriented x3, Cooperative, No apparent distress HEENT: Atraumatic Extremities: No cyanosis, Capillary Refill Less than 3 Seconds, No Calf Tenderness, Diminished Peripheral Pulses, Edema Skin: Ulcer/ Wound - No purulence, erythema, streaking, odor, infection. Adjacent skin is hairless and atrophic. The ulcer bed is mainly granular with a small border of fibrous tissue Wound Measurements and Assessment WC - Nurse 1 - General Ulcer Measurement Start: 02/18/20 16:07 Freq: Status: Active Protocol: Activity Type Activity Date Activity User E-Sign Co-Sign Detail Recorded Client Recorded Date Recorded By Document 02/25/20 14:56 [id number] 02/25/20 15:01 CARYL 02/25/20 14:56 Wound Center Nurse 1 [Ulcer Assessment] #5 right hallux -Combined with other wound No -Current Size (cm) - Length 0.9 -Current Size (cm) - Width 0.6 -Current Size (cm) - Depth 0.2 -Total Square Cm 0.54 -Tunneling No -Undermining/Tunneling No -Circular Undermining No -Exudate Amt Small -Exudate Type Serosanguineous -Wound Margin Thickened & Rolled Under -Granulation Amt Medium (34-66%) -Granulation Quality [place] -Slough/Fibrin Yes -Necrosis Amt Medium (34-66%) -Necrotic Tissue Type Adherent Slough -Structure Exposed N/A -Texture (Anna-wound Skin Appearance) Assessed -Moisture (Anna-wound Skin Appearance Dry/Scaly ) -Color (Anna-wound Skin Appearance) Assessed -Temperature (Anna-wound Skin No Abnormality Appearance) (Pt Warm) -Tenderness on Palpation (Anna-wound No Skin Appearance) -Ulcer Cleansing Wound Cleanser -Foul Odor after Cleansing No -Anesthetic Used 4% Lidocaine Solution [Edema Assessment] -Lower Limb Edema Present Yes -Right Calf (cm) 36 -Right Ankle (cm) 23 Musculoskeletal: No Tenderness to Palpation of Joints or Extremities, Muscle Wasting Neurological: - - Lack of normal epicritic sensation Psych/Mental Status: Normal Affect, Appropriate Debridement Note Post-Debridement Measurements/Treatment WC - Nurse 2 - General Ulcer CM Notes Start: 02/18/20 16:07 Freq: Status: Active Protocol: Activity Type Activity Date Activity User E-Sign Co-Sign Detail Recorded Client Recorded Date Recorded By Document 02/18/20 16:37 [id number] 02/18/20 16:38 02/18/20 16:37 Wound Center Nurse 2 6 left [place] -Correct Patient No -Correct Side, Site, Position No -Correct Procedure No -Procedure Performed No -Post Debridement Size (cm) - Length 0 -Post Debridement Size (cm) - Width 0 -Post Debridement Size (cm) - Depth 0 -Total Square Cm 0 -Wound/Ulcer Outcome Healed- Epithelialized #5 right hallux -Time 16:38 -Correct Patient Yes -Correct Side, Site, Position Yes -Correct Procedure Yes -Procedure Performed Yes -Type of Procedure Debridement -Clinical Debridement Subcutaneous -Post Debridement Size (cm) - Length 1.0 -Post Debridement Size (cm) - Width 0.8 -Post Debridement Size (cm) - Depth 0.2 -Total Square Cm 0.80 -Wound/Ulcer Outcome Not Healed -Ulcer Cleansing Rinsed/ Irrigated with Saline -Foul Odor after Cleansing No -Bioengineered Tissue No -Bleeding Controlled with Pressure -Offloading Yes -Type of Offloading Surgical Shoe -Treatment Response Procedure Tolerated Well Pain Scale: 0-10 Numeric Is Patient Pain Free? Yes Wound debrided: medial forefoot Laterality: Right Wound Grade/Stage: grade 2 Type of Debridement: Excisional debridement Anesthesia Used: 5% Lidocaine Gel Depth: in the subcutaneous layer Percentage of wound debrided: 100 Instrument Used: #15 blade Tissue Removed: fibrous, devitalized subuctaneous, biofilm, slough Severity: Fat Layer Exposed Amount of bleeding with debridement: Mild Bleeding Controlled with: Pressure Patient tolerated procedure well Assessment/Plan Assessment: Right foot ulcer with muscle and capsular tissue exposed. diabetes with neuropathy. vascular disease. malnutrition. Bacterial colonization right foot Plan: I reviewed and discussed this case with the patient. Debridement was performed as noted in the clinical panel. A culture was obtained previously (aerobic, anearobic, mrsa pcr) to evaluate for any bacterial contamination or colonization which may be slowing down the healing process. Bacterial growth was identified and he was started on oral antibiotics. I called him at the end of last week and this was initiated. He was advised to complete the course and to wash with his foot with antimicrobial soap. Advanced wound healing product was applied today including epi-fix. Verbal consent was obtained and this was applied according standard protocol. This was further secured with a wound veil and Steri-Strips. He was advised to keep this clean, dry, and intact until follow-up next week. He already has a surgical shoe and proper use of straps to avoid direct pressure on the site were reviewed again this afternoon. His x- rays were reviewed previously at the foot and ankle center which did not demonstrate any osseous destruction, foreign body, or soft tissue emphysema. Lab work was reviewed after clinic with a white blood cell count of 8.6, C- reactive protein of 17, and sedimentation rate of 70. Trends will be monitored and this demonstrates an inflammatory process is in place and suggests her supports of malnutrition as well. No other gross abnormalities were noted. There is no systemic or lesley local signs of infection however the devitalized tissue is a concern. This to be monitored closely. It is also noted he has a history of vascular disease with occlusive disease identified even with his updated noninvasive vascular studies performed in early September 2019. Arterial intervention is not planned at this time. He also has venous disease and has started undergoing intervention with Dr. Calvillo for this condition. This is going well and he has reduction in leg edema. To follow-up with the wound healing center in 1 week or call sooner if he has any questions, concerns, or deterioration in status or development of infection. I answered his questions.
[2020-03-03 15:01] VITALS: BP 147/68; PULSE 66; RESP 18; TEMP 36.6; BMI 32.3
--- NOTE | 2020-03-03 17:36 | PCM.WC.PN ---
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 Code(s): L97.513 - Non-pressure chronic ulcer of other part of right foot with necrosis of muscle (2) Colonization status Status: Resolved Code(s): Z22.9 - Carrier of infectious disease, unspecified (3) Peripheral vascular occlusive disease Status: Chronic Code(s): I73.9 - Peripheral vascular disease, unspecified (4) Delayed wound healing Status: Chronic Code(s): T14.8 - Other injury of unspecified body region (5) Venous insufficiency Status: Chronic (6) Type 2 diabetes mellitus with diabetic polyneuropathy Status: Chronic Code(s): E11.42 - Type 2 diabetes mellitus with diabetic polyneuropathy Type of Wound Date of Service: 03/10/20 Chief Complaint: Foot ulcer History of Wound: This 75-year-old male follows up for right foot ulcer and his bunion site. He denies fevers, chills, nausea, vomiting, diarrhea, loss of appetite. He denies drainage or redness. He has been undergoing limb venous intervention with Dr. Calvillo. He denies redness or odor. He is also started on antibiotics because he had pathological bacterial growth in his chronic wound site that has been demonstrating delayed healing. He denies diarrhea or other known side effects. This was completed. Progress of Wound: Right foot improving - Physical Exam Vital Signs Temp Pulse Resp BP 97.9 F 66 18 147/68 H 03/03/20 15:01 03/03/20 15:01 03/03/20 15:01 03/03/20 15:01 General: Alert, Oriented x3, Cooperative HEENT: Atraumatic Extremities: No cyanosis, Capillary Refill Less than 3 Seconds, No Calf Tenderness, Diminished Peripheral Pulses, Edema Skin: Ulcer/ Wound - No purulence, erythema, streaking, odor, infection. The ulcer bed is granular. His skin in general is atrophic and hairless. Peripheral epithelialization is noted Wound Measurements and Assessment WC - Nurse 1 - General Ulcer Measurement Start: 02/18/20 16:07 Freq: Status: Active Protocol: Activity Type Activity Date Activity User E-Sign Co-Sign Detail Recorded Client Recorded Date Recorded By Document 03/03/20 15:01 RB [id number] 03/03/20 15:04 RB 03/03/20 15:01 Wound Center Nurse 1 [Ulcer Assessment] #5 right hallux -Combined with other wound No -Current Size (cm) - Length 1 -Current Size (cm) - Width 1.2 -Current Size (cm) - Depth 0.1 -Total Square Cm 1.2 -Tunneling No -Undermining/Tunneling No -Circular Undermining No -Exudate Amt Small -Exudate Type Serosanguineous -Wound Margin Flat & Intact -Granulation Amt Small (1-33%) -Granulation Quality [place] -Slough/Fibrin Yes -Necrosis Amt Large (67-100%) -Necrotic Tissue Type Adherent Slough -Structure Exposed N/A -Texture (Anna-wound Skin Appearance) Assessed, Scarring -Moisture (Anna-wound Skin Appearance Assessed ) -Color (Anna-wound Skin Appearance) Assessed -Temperature (Anna-wound Skin No Abnormality Appearance) (Pt Warm) -Tenderness on Palpation (Anna-wound No Skin Appearance) -Ulcer Cleansing Wound Cleanser -Foul Odor after Cleansing No -Anesthetic Used 4% Lidocaine Solution [Edema Assessment] -Lower Limb Edema Present Yes -Right Calf (cm) 35.5 -Right Ankle (cm) 21.5 WC - Nurse 2 - General Ulcer CM Notes Start: 02/18/20 16:07 Freq: Status: Active Protocol: Activity Type Activity Date Activity User E-Sign Co-Sign Detail Recorded Client Recorded Date Recorded By Document 03/03/20 15:16 DORA [id number] 03/03/20 15:17 DORA 03/03/20 15:16 Wound Center Nurse 2 [Procedure/Treatment] #5 right hallux -Time 15:16 -Correct Patient Yes -Correct Side, Site, Position Yes -Correct Procedure Yes -Procedure Performed Yes -Type of Procedure Debridement -Clinical Debridement Subcutaneous -Post Debridement Size (cm) - Length 0.9 -Post Debridement Size (cm) - Width 0.9 -Post Debridement Size (cm) - Depth 0.2 -Total Square Cm 0.81 -Wound/Ulcer Outcome Not Healed -Ulcer Cleansing Rinsed/ Irrigated with Saline -Foul Odor after Cleansing No -Bioengineered Tissue Yes -Type of bioengineered Tissue EPIFIX -Expiration Date 11/18/24 -Product Lot Number [id number] -Percent Used 100 -Saline Lot Number [id number] -Bleeding Controlled with Pressure -Offloading Yes -Type of Offloading Surgical Shoe -Treatment Response Procedure Tolerated Well [See Physician Procedure note for Specifics] Pain Scale: 0-10 Numeric [Pain] -Is Patient Pain Free? Yes Musculoskeletal: No Tenderness to Palpation of Joints or Extremities, Muscle Wasting Neurological: Sensory exam intact to light touch and pain Psych/Mental Status: Normal Affect, Appropriate Debridement Note Post-Debridement Measurements/Treatment WC - Nurse 2 - General Ulcer CM Notes Start: 02/18/20 16:07 Freq: Status: Active Protocol: Activity Type Activity Date Activity User E-Sign Co-Sign Detail Recorded Client Recorded Date Recorded By Document 02/18/20 16:37 [id number] 02/18/20 16:38 Document 02/25/20 16:32 PL [id number] 02/25/20 16:34 PL Document 03/03/20 15:16 [id number] 03/03/20 15:17 02/18/20 02/25/20 03/03/20 16:37 16:32 15:16 Wound Center Nurse 2 6 left zaragoza -Correct Patient No -Correct Side, Site, Position No -Correct Procedure No -Procedure Performed No -Post Debridement Size (cm) - Length 0 -Post Debridement Size (cm) - Width 0 -Post Debridement Size (cm) - Depth 0 -Total Square Cm 0 -Wound/Ulcer Outcome Healed- Epithelialized #5 right hallux -Time 16:38 15:52 15:16 -Correct Patient Yes Yes Yes -Correct Side, Site, Position Yes Yes Yes -Correct Procedure Yes Yes Yes -Procedure Performed Yes Yes Yes -Type of Procedure Debridement Debridement Debridement -Clinical Debridement Subcutaneous Subcutaneous Subcutaneous -Post Debridement Size (cm) - Length 1.0 1.0 0.9 -Post Debridement Size (cm) - Width 0.8 0.7 0.9 -Post Debridement Size (cm) - Depth 0.2 0.3 0.2 -Total Square Cm 0.80 0.70 0.81 -Wound/Ulcer Outcome Not Healed Not Healed Not Healed -Ulcer Cleansing Rinsed/ Rinsed/ Rinsed/ Irrigated with Irrigated with Irrigated with Saline Saline Saline -Foul Odor after Cleansing No No -Bioengineered Tissue No Yes -Type of bioengineered Tissue EPIFIX EPIFIX -Expiration Date 11/18/24 11/18/24 -Product Lot Number [id number] -Percent Used 100 100 -Saline Lot Number [id number] -Bleeding Controlled with Pressure Pressure Pressure -Offloading Yes Yes -Type of Offloading Surgical Shoe Surgical Shoe Surgical Shoe -Treatment Response Procedure Procedure Procedure Tolerated Well Tolerated Well Tolerated Well Pain Scale: 0-10 Numeric Is Patient Pain Free? Yes Yes Yes Wound debrided: medial forefoot Laterality: Right Wound Grade/Stage: grade 1 Type of Debridement: Excisional debridement Anesthesia Used: 5% Lidocaine Gel Depth: in the subcutaneous layer Percentage of wound debrided: 100 Instrument Used: #15 blade Tissue Removed: fibrous, devitalized subcutaneous, biofilm, slough Severity: Fat Layer Exposed Amount of bleeding with debridement: Mild Bleeding Controlled with: Pressure Patient tolerated procedure well Assessment/Plan Assessment: Right foot ulcer with muscle and capsular tissue exposed. diabetes with neuropathy. vascular disease. malnutrition. Bacterial colonization right foot treated and resolved Plan: I reviewed and discussed this case with the patient. Debridement was performed as noted in the clinical panel. A culture was obtained previously previously (aerobic, anearobic, mrsa pcr) to evaluate for any bacterial contamination or colonization which may be slowing down the healing process. Bacterial growth was identified and he was started on oral antibiotics. This was completed and he also did a course of antimicrobial soap. He responded well to this plan. Advanced wound healing product was applied today including epi-fix. Verbal consent was obtained and this was applied according standard protocol. This was further secured with a wound veil and Steri-Strips. He was advised to keep this clean, dry, and intact until follow-up next week. This is medically necessary for limb salvage. He already has a surgical shoe and proper use of straps to avoid direct pressure on the site were reviewed again this afternoon. His x-rays were reviewed previously at the foot and ankle center which did not demonstrate any osseous destruction, foreign body, or soft tissue emphysema. Lab work was reviewed after clinic with a white blood cell count of 8.6, C-reactive protein of 17, and sedimentation rate of 70. Trends will be monitored and this demonstrates an inflammatory process is in place and suggests her supports of malnutrition as well. No other gross abnormalities were noted. There is no systemic or lesley local signs of infection however the devitalized tissue is a concern. This to be monitored closely. It is also noted he has a history of vascular disease with occlusive disease identified even with his updated noninvasive vascular studies performed in early September 2019. Arterial intervention is not planned at this time. He also has venous disease and has started undergoing intervention with Dr. Calvillo for this condition. This is going well and he has reduction in leg edema. To follow-up with the wound healing center in 1 week or call sooner if he has any questions, concerns, or deterioration in status or development of infection. I answered his questions.
[2020-03-10 14:36] VITALS: BP 112/59; PULSE 45; RESP 18; TEMP 36.2; BMI 32.3
--- NOTE | 2020-03-10 15:24 | PN.PCM_ITS ---
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 Current Visit: Yes Code(s): L97.513 - Non-pressure chronic ulcer of other part of right foot with necrosis of muscle (2) Colonization status Status: Resolved Current Visit: Yes Code(s): Z22.9 - Carrier of infectious disease, unspecified (3) Peripheral vascular occlusive disease Status: Chronic Current Visit: Yes Code(s): I73.9 - Peripheral vascular disease, unspecified (4) Delayed wound healing Status: Chronic Current Visit: Yes Code(s): T14.8 - Other injury of unspecified body region (5) Venous insufficiency Status: Chronic Current Visit: Yes (6) Type 2 diabetes mellitus with diabetic polyneuropathy Status: Chronic Current Visit: Yes Code(s): E11.42 - Type 2 diabetes mellitus with diabetic polyneuropathy Type of Wound Date of Service: 03/10/20 Chief Complaint: Foot ulcer History of Wound: This 75-year-old male follows up for right foot ulcer and his bunion site. He denies fevers, chills, nausea, vomiting, diarrhea, loss of appetite. He denies drainage or redness. He has been undergoing limb venous intervention with Dr. Calvillo. He denies redness or odor. He is also started on antibiotics because he had pathological bacterial growth in his chronic wound site that has been demonstrating delayed healing. He denies diarrhea or other known side effects. This was completed. He would like to proceed forward with his last application of epi-fix today. Progress of Wound: Right foot improving - Physical Exam Vital Signs Temp Pulse Resp BP 97.2 F L 45 L 18 112/59 L 03/10/20 14:36 03/10/20 14:36 03/10/20 14:36 03/10/20 14:36 General: Alert, Oriented x3, Cooperative, No apparent distress Extremities: No cyanosis, No edema, Capillary Refill Less than 3 Seconds, No Calf Tenderness, Diminished Peripheral Pulses Skin: Ulcer/ Wound - No purulence, erythema, streaking, odor, infection. Skin is atrophic and hairless. Wound Measurements and Assessment WC - Nurse 1 - General Ulcer Measurement Start: 02/18/20 16:07 Freq: Status: Active Protocol: Activity Type Activity Date Activity User E-Sign Co-Sign Detail Recorded Client Recorded Date Recorded By Document 03/10/20 14:36 [email or web address] [id number] 03/10/20 14:43 [facility] 03/10/20 14:36 Wound Center Nurse 1 [Ulcer Assessment] #5 right hallux -Combined with other wound No -Current Size (cm) - Length 2.2 -Current Size (cm) - Width 0.7 -Current Size (cm) - Depth 0.1 -Total Square Cm 1.54 -Photo Taken No -Epithelialization None Present -Tunneling No -Undermining/Tunneling No -Circular Undermining No -Exudate Amt Small -Exudate Type Serosanguineous -Wound Margin Distinct, Outline Attached -Granulation Amt None Present (0 %) -Slough/Fibrin Yes -Necrosis Amt Large (67-100%) -Necrotic Tissue Type Adherent Slough -Texture (Anna-wound Skin Appearance) Assessed, Scarring -Moisture (Anna-wound Skin Appearance Assessed,Dry/ ) Scaly -Color (Anna-wound Skin Appearance) Assessed -Temperature (Anna-wound Skin No Abnormality Appearance) (Pt Warm) -Tenderness on Palpation (Anna-wound No Skin Appearance) -Ulcer Cleansing soapy water -Foul Odor after Cleansing No -Anesthetic Used 5% Lidocaine Gel WC - Nurse 2 - General Ulcer CM Notes Start: 02/18/20 16:07 Freq: Status: Active Protocol: Activity Type Activity Date Activity User E-Sign Co-Sign Detail Recorded Client Recorded Date Recorded By Document 03/10/20 15:13 [id number] 03/10/20 15:14 03/10/20 15:13 Wound Center Nurse 2 [Procedure/Treatment] -Time 15:13 -Correct Patient Yes -Correct Side, Site, Position Yes -Correct Procedure Yes -Procedure Performed Yes -Type of Procedure Debridement -Clinical Debridement Subcutaneous -Post Debridement Size (cm) - Length 2.2 -Post Debridement Size (cm) - Width 0.8 -Post Debridement Size (cm) - Depth 0.1 -Total Square (cm) 1.76 -Wound/Ulcer Outcome Not Healed -Ulcer Cleansing Rinsed/ Irrigated with Saline -Foul Odor after Cleansing No -Bioengineered Tissue Yes -Type of bioengineered Tissue EPIFIX -Expiration Date 10/18/24 -Product Lot Number [id number] -Percent Used 100 -Saline Lot Number [id number] -Bleeding Controlled with Pressure -Type of Offloading Surgical Shoe -Treatment Response Procedure Tolerated Well [See Physician Procedure note for Specifics] Pain Scale: 0-10 Numeric [Pain] -Is Patient Pain Free? Yes Musculoskeletal: No Tenderness to Palpation of Joints or Extremities, Muscle Wasting Neurological: - - Lack of normal epicritic sensation light touch consistent with neuropathy status Psych/Mental Status: Normal Affect, Appropriate Debridement Note Post-Debridement Measurements/Treatment WC - Nurse 2 - General Ulcer CM Notes Start: 02/18/20 16:07 Freq: Status: Active Protocol: Activity Type Activity Date Activity User E-Sign Co-Sign Detail Recorded Client Recorded Date Recorded By Document 02/18/20 16:37 [id number] 02/18/20 16:38 Document 02/25/20 16:32 PL [id number] 02/25/20 16:34 PL Document 03/03/20 15:16 [id number] 03/03/20 15:17 Document 03/10/20 15:13 [id number] 03/10/20 15:14 02/18/20 02/25/20 03/03/20 16:37 16:32 15:16 Wound Center Nurse 2 6 left [place] -Correct Patient No -Correct Side, Site, Position No -Correct Procedure No -Procedure Performed No -Post Debridement Size (cm) - Length 0 -Post Debridement Size (cm) - Width 0 -Post Debridement Size (cm) - Depth 0 -Total Square (cm) 0 -Wound/Ulcer Outcome Healed- Epithelialized #5 right hallux -Time 16:38 15:52 15:16 -Correct Patient Yes Yes Yes -Correct Side, Site, Position Yes Yes Yes -Correct Procedure Yes Yes Yes -Procedure Performed Yes Yes Yes -Type of Procedure Debridement Debridement Debridement -Clinical Debridement Subcutaneous Subcutaneous Subcutaneous -Post Debridement Size (cm) - Length 1.0 1.0 0.9 -Post Debridement Size (cm) - Width 0.8 0.7 0.9 -Post Debridement Size (cm) - Depth 0.2 0.3 0.2 -Total Square (cm) 0.80 0.70 0.81 -Wound/Ulcer Outcome Not Healed Not Healed Not Healed -Ulcer Cleansing Rinsed/ Rinsed/ Rinsed/ Irrigated with Irrigated with Irrigated with Saline Saline Saline -Foul Odor after Cleansing No No -Bioengineered Tissue No Yes -Type of bioengineered Tissue EPIFIX EPIFIX -Expiration Date 11/18/24 11/18/24 -Product Lot Number [id number] -Percent Used 100 100 -Saline Lot Number [id number] -Bleeding Controlled with Pressure Pressure Pressure -Offloading Yes Yes -Type of Offloading Surgical Shoe Surgical Shoe Surgical Shoe -Treatment Response Procedure Procedure Procedure Tolerated Well Tolerated Well Tolerated Well Pain Scale: 0-10 Numeric Is Patient Pain Free? Yes Yes Yes 03/10/20 15:13 Wound Center Nurse 2 6 left [place] -Correct Patient -Correct Side, Site, Position -Correct Procedure -Procedure Performed -Post Debridement Size (cm) - Length -Post Debridement Size (cm) - Width -Post Debridement Size (cm) - Depth -Total Square (cm) -Wound/Ulcer Outcome #5 right hallux -Time 15:13 -Correct Patient Yes -Correct Side, Site, Position Yes -Correct Procedure Yes -Procedure Performed Yes -Type of Procedure Debridement -Clinical Debridement Subcutaneous -Post Debridement Size (cm) - Length 2.2 -Post Debridement Size (cm) - Width 0.8 -Post Debridement Size (cm) - Depth 0.1 -Total Square (cm) 1.76 -Wound/Ulcer Outcome Not Healed -Ulcer Cleansing Rinsed/ Irrigated with Saline -Foul Odor after Cleansing No -Bioengineered Tissue Yes -Type of bioengineered Tissue EPIFIX -Expiration Date 10/18/24 -Product Lot Number [id number] -Percent Used 100 -Saline Lot Number [id number] -Bleeding Controlled with Pressure -Offloading -Type of Offloading Surgical Shoe -Treatment Response Procedure Tolerated Well Pain Scale: 0-10 Numeric Is Patient Pain Free? 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 diabetes with neuropathy. vascular disease. malnutrition. Bacterial colonization right foot treated and resolved Plan: I reviewed and discussed this case with the patient. Debridement was performed as noted in the clinical panel. A culture was obtained previously previously (aerobic, anearobic, mrsa pcr) to evaluate for any bacterial contamination or colonization which may be slowing down the healing process. Bacterial growth was identified and he was started on oral antibiotics. This was completed and he also did a course of antimicrobial soap. He responded well to this plan. Advanced wound healing product was applied today including epi- fix. Verbal consent was obtained and this was applied according standard protocol. This was further secured with a wound veil and Steri-Strips. He was advised to keep this clean, dry, and intact until follow-up next week. This is medically necessary for limb salvage. He already has a surgical shoe and proper use of straps to avoid direct pressure on the site were reviewed again this afternoon. His x-rays were reviewed previously at the foot and ankle center which did not demonstrate any osseous destruction, foreign body, or soft tissue emphysema. Lab work was reviewed after clinic with a white blood cell count of 8.6, C-reactive protein of 17, and sedimentation rate of 70. Trends will be monitored and this demonstrates an inflammatory process is in place and suggests her supports of malnutrition as well. No other gross abnormalities were noted. There is no systemic or lesley local signs of infection however the devitalized tissue is a concern. This to be monitored closely. It is also noted he has a history of vascular disease with occlusive disease identified even with his updated noninvasive vascular studies performed in early September 2019. Arterial intervention is not planned at this time. He also has venous disease and has started undergoing intervention with Dr. Calvillo for this condition. This is going well and he has reduction in leg edema. To follow-up with the wound healing center in 1 week or call sooner if he has any questions, concerns, or deterioration in status or development of infection. I answered his questions.
[2020-03-17 15:05] VITALS: BP 151/54; PULSE 62; RESP 22; TEMP 36.1; BMI 32.3
--- NOTE | 2020-03-17 16:39 | PCM.WC.PN ---
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 Code(s): L97.513 - Non-pressure chronic ulcer of other part of right foot with necrosis of muscle (2) Colonization status Status: Resolved Code(s): Z22.9 - Carrier of infectious disease, unspecified (3) Peripheral vascular occlusive disease Status: Chronic Code(s): I73.9 - Peripheral vascular disease, unspecified (4) Delayed wound healing Status: Chronic Code(s): T14.8 - Other injury of unspecified body region (5) Venous insufficiency Status: Chronic (6) Type 2 diabetes mellitus with diabetic polyneuropathy Status: Chronic Code(s): E11.42 - Type 2 diabetes mellitus with diabetic polyneuropathy Type of Wound Date of Service: 03/17/20 Chief Complaint: Foot ulcer History of Wound: This 75-year-old male follows up for right foot ulcer and his bunion site. He denies fevers, chills, nausea, vomiting, diarrhea, loss of appetite. He denies drainage or redness. He has been undergoing limb venous intervention with Dr. Calvillo. He denies redness or odor. He is also started on antibiotics because he had pathological bacterial growth in his chronic wound site that has been demonstrating delayed healing. He denies diarrhea or other known side effects. This was completed. He has completed a course of epi-fix. Progress of Wound: Right foot improving - Physical Exam Vital Signs Temp Pulse Resp BP 97 F L 62 22 H 151/54 H 03/17/20 15:05 03/17/20 15:05 03/17/20 15:05 03/17/20 15:05 General: Alert, Oriented x3 Extremities: No cyanosis, Capillary Refill Less than 3 Seconds, No Calf Tenderness, Diminished Peripheral Pulses, Edema - Decreasing Skin: Ulcer/ Wound - No purulence, no erythema, no streaking, no odor, no infection, no capsule or bone involvement. The adjacent skin is atrophic Wound Measurements and Assessment WC - Nurse 1 - General Ulcer Measurement Start: 02/18/20 16:07 Freq: Status: Active Protocol: Activity Type Activity Date Activity User E-Sign Co-Sign Detail Recorded Client Recorded Date Recorded By Document 03/17/20 15:05 DL [id number] 03/17/20 15:17 DL 03/17/20 15:05 Wound Center Nurse 1 [Ulcer Assessment] #5 right hallux -Current Size (cm) - Length 0.8 -Current Size (cm) - Width 1.8 -Current Size (cm) - Depth 0.1 -Total Square Cm 1.44 -Photo Taken No -Exudate Amt None Present -Wound Margin Thickened -Granulation Amt None Present (0 %) -Necrosis Amt Large (67-100%) -Necrotic Tissue Type Eschar -Structure Exposed N/A -Texture (Anna-wound Skin Appearance) Scarring -Moisture (Anna-wound Skin Appearance Dry/Scaly ) -Color (Anna-wound Skin Appearance) No Abnormality -Temperature (Anna-wound Skin No Abnormality Appearance) (Pt Warm) -Tenderness on Palpation (Anna-wound No Skin Appearance) -Ulcer Cleansing Wound Cleanser -Foul Odor after Cleansing No -Anesthetic Used 4% Lidocaine Solution [Edema Assessment] -Left Calf (cm) 35 -Left Ankle (cm) 21 WC - Nurse 2 - General Ulcer CM Notes Start: 02/18/20 16:07 Freq: Status: Active Protocol: Activity Type Activity Date Activity User E-Sign Co-Sign Detail Recorded Client Recorded Date Recorded By Document 03/17/20 15:43 [id number] 03/17/20 15:46 03/17/20 15:43 Wound Center Nurse 2 [Procedure/Treatment] #5 right hallux -Time 15:46 -Correct Patient Yes -Correct Side, Site, Position Yes -Correct Procedure Yes -Procedure Performed Yes -Type of Procedure Debridement -Clinical Debridement Subcutaneous -Post Debridement Size (cm) - Length 1.0 -Post Debridement Size (cm) - Width 0.7 -Post Debridement Size (cm) - Depth 0.3 -Total Square (cm) 0.70 -Wound/Ulcer Outcome Not Healed -Ulcer Cleansing Rinsed/ Irrigated with Saline -Foul Odor after Cleansing No -Bioengineered Tissue No -Bleeding Controlled with Pressure -Offloading Yes -Type of Offloading Surgical Shoe -Treatment Response Procedure Tolerated Well [See Physician Procedure note for Specifics] Pain Scale: 0-10 Numeric [Pain] -Is Patient Pain Free? Yes Musculoskeletal: Muscle Wasting Neurological: - - Lack of normal epicritic sensation to light touch Psych/Mental Status: Normal Affect, Appropriate Debridement Note Post-Debridement Measurements/Treatment WC - Nurse 2 - General Ulcer CM Notes Start: 02/18/20 16:07 Freq: Status: Active Protocol: Activity Type Activity Date Activity User E-Sign Co-Sign Detail Recorded Client Recorded Date Recorded By Document 02/18/20 16:37 [id number] 02/18/20 16:38 Document 02/25/20 16:32 PL [id number] 02/25/20 16:34 PL Document 03/03/20 15:16 [id number] 03/03/20 15:17 Document 03/10/20 15:13 [id number] 03/10/20 15:14 Document 03/17/20 15:43 [id number] 03/17/20 15:46 02/18/20 02/25/20 03/03/20 16:37 16:32 15:16 Wound Center Nurse 2 6 left [place] -Correct Patient No -Correct Side, Site, Position No -Correct Procedure No -Procedure Performed No -Post Debridement Size (cm) - Length 0 -Post Debridement Size (cm) - Width 0 -Post Debridement Size (cm) - Depth 0 -Total Square (cm) 0 -Wound/Ulcer Outcome Healed- Epithelialized #5 right hallux -Time 16:38 15:52 15:16 -Correct Patient Yes Yes Yes -Correct Side, Site, Position Yes Yes Yes -Correct Procedure Yes Yes Yes -Procedure Performed Yes Yes Yes -Type of Procedure Debridement Debridement Debridement -Clinical Debridement Subcutaneous Subcutaneous Subcutaneous -Post Debridement Size (cm) - Length 1.0 1.0 0.9 -Post Debridement Size (cm) - Width 0.8 0.7 0.9 -Post Debridement Size (cm) - Depth 0.2 0.3 0.2 -Total Square (cm) 0.80 0.70 0.81 -Wound/Ulcer Outcome Not Healed Not Healed Not Healed -Ulcer Cleansing Rinsed/ Rinsed/ Rinsed/ Irrigated with Irrigated with Irrigated with Saline Saline Saline -Foul Odor after Cleansing No No -Bioengineered Tissue No Yes -Type of bioengineered Tissue EPIFIX EPIFIX -Expiration Date 11/18/24 11/18/24 -Product Lot Number [id number] -Percent Used 100 100 -Saline Lot Number [id number] -Bleeding Controlled with Pressure Pressure Pressure -Offloading Yes Yes -Type of Offloading Surgical Shoe Surgical Shoe Surgical Shoe -Treatment Response Procedure Procedure Procedure Tolerated Well Tolerated Well Tolerated Well Pain Scale: 0-10 Numeric Is Patient Pain Free? Yes Yes Yes 03/10/20 03/17/20 15:13 15:43 Wound Center Nurse 2 6 left [place] -Correct Patient -Correct Side, Site, Position -Correct Procedure -Procedure Performed -Post Debridement Size (cm) - Length -Post Debridement Size (cm) - Width -Post Debridement Size (cm) - Depth -Total Square (cm) -Wound/Ulcer Outcome #5 right hallux -Time 15:13 15:46 -Correct Patient Yes Yes -Correct Side, Site, Position Yes Yes -Correct Procedure Yes Yes -Procedure Performed Yes Yes -Type of Procedure Debridement Debridement -Clinical Debridement Subcutaneous Subcutaneous -Post Debridement Size (cm) - Length 2.2 1.0 -Post Debridement Size (cm) - Width 0.8 0.7 -Post Debridement Size (cm) - Depth 0.1 0.3 -Total Square (cm) 1.76 0.70 -Wound/Ulcer Outcome Not Healed Not Healed -Ulcer Cleansing Rinsed/ Rinsed/ Irrigated with Irrigated with Saline Saline -Foul Odor after Cleansing No No -Bioengineered Tissue Yes No -Type of bioengineered Tissue EPIFIX -Expiration Date 10/18/24 -Product Lot Number [id number] -Percent Used 100 -Saline Lot Number [id number] -Bleeding Controlled with Pressure Pressure -Offloading Yes -Type of Offloading Surgical Shoe Surgical Shoe -Treatment Response Procedure Procedure Tolerated Well Tolerated Well Pain Scale: 0-10 Numeric Is Patient Pain Free? Yes Yes Wound debrided: medial forefoot Laterality: Right Wound Grade/Stage: grade 2 Type of Debridement: Excisional debridement Anesthesia Used: 5% Lidocaine Gel Depth: in the subcutaneous layer Percentage of wound debrided: 100 Instrument Used: #15 blade Tissue Removed: fibrous, devitalized subcutaneous, biofilm, slough Severity: Fat Layer Exposed Amount of bleeding with debridement: Mild Bleeding Controlled with: Pressure Patient tolerated procedure well Assessment/Plan Assessment: Right foot ulcer with muscle and capsular tissue exposed. diabetes with neuropathy. vascular disease. malnutrition. Bacterial colonization right foot treated and resolved Plan: I reviewed and discussed this case with the patient. Debridement was performed as noted in the clinical panel. He completed a course of advanced wound healing product, epi-fix. Hydrogel or silver cell was recommended today. He had these products at home and was advised to switch over to the hydrogel if the drainage decreases too much and the dressing is sticking. He already has a surgical shoe and proper use of straps to avoid direct pressure on the site were reviewed again this afternoon. His x-rays were reviewed previously at the foot and ankle center which did not demonstrate any osseous destruction, foreign body, or soft tissue emphysema. Lab work was reviewed after clinic with a white blood cell count of 8.6, C-reactive protein of 17, and sedimentation rate of 70. Trends will be monitored and this demonstrates an inflammatory process is in place and suggests her supports of malnutrition as well. No other gross abnormalities were noted. There is no systemic or lesley local signs of infection however the devitalized tissue is a concern. This to be monitored closely. It is also noted he has a history of vascular disease with occlusive disease identified even with his updated noninvasive vascular studies performed in early September 2019. Arterial intervention is not planned at this time. He also has venous disease and has started undergoing intervention with Dr. Calvillo for this condition. This is going well and he has reduction in leg edema. To follow-up with the wound healing center in 1 week or call sooner if he has any questions, concerns, or deterioration in status or development of infection. I answered his questions.
== END 2020-03-19 23:59 ==
LOC: WC 15:00
PROVIDERS: PCP Family Medicine; Visit Provider Podiatrist
DX: E11.621 Type 2 diabetes mellitus with foot ulcer (principal); E11.51 Type 2 diabetes mellitus with diabetic peripheral angiopathy without gangrene; I87.2 Venous insufficiency (chronic) (peripheral); L97.512 Non-pressure chronic ulcer of other part of right foot with fat layer exposed; E11.42 Type 2 diabetes mellitus with diabetic polyneuropathy; R60.0 Localized edema
CPT/HCPCS: 11042; 15275; Q4186

== ENCOUNTER 2020-04-14 14:15 | Outpatient (RCR) | payer MEDICARE, OTHER, SELFPAY ==
[2020-03-20 00:27] VITALS: BP 151/54; PULSE 62; RESP 22; TEMP 36.1
[2020-03-24 15:34] VITALS: BP 134/60; PULSE 60; RESP 16; TEMP 36.4; BMI 32.3
--- NOTE | 2020-03-24 16:12 | PCM.WC.PN ---
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 He denies fevers, chills, nausea, vomiting, diarrhea, loss of appetite. He denies drainage or redness. He has been undergoing limb venous intervention with Dr. Calvillo. He denies redness or odor. He is completed a course of advanced wound healing products including epi-cord and epi-fix. Progress of Wound: Right foot improving - Physical Exam Vital Signs Temp Pulse Resp BP 97.5 F L 60 16 134/60 H 03/24/20 15:34 03/24/20 15:34 03/24/20 15:34 03/24/20 15:34 General: Alert, Oriented x3, Cooperative, No apparent distress HEENT: Atraumatic Extremities: No cyanosis, No edema, Capillary Refill Less than 3 Seconds, No Calf Tenderness, Diminished Peripheral Pulses Skin: Ulcer/ Wound - No purulence, erythema, streaking, odor, infection. Progression on peripheral epithelialization is noted. The adjacent skin is atrophic Wound Measurements and Assessment WC - Nurse 1 - General Ulcer Measurement Start: 03/24/20 15:34 Freq: Status: Active Protocol: Activity Type Activity Date Activity User E-Sign Co-Sign Detail Recorded Client Recorded Date Recorded By Document 03/24/20 15:34 [facility] [id number] 03/24/20 15:41 [facility] 03/24/20 15:34 Wound Center Nurse 1 [Ulcer Assessment] #5 right hallux -Combined with other wound No -Current Size (cm) - Length 0.9 -Current Size (cm) - Width 0.4 -Current Size (cm) - Depth 0.1 -Total Square Cm 0.36 -Date of Last Picture (Recall this 08/05/20 field) -Photo Taken Yes -Epithelialization None Present -Tunneling No -Undermining/Tunneling No -Circular Undermining No -Exudate Amt Small -Exudate Type Serosanguineous -Wound Margin Thickened -Granulation Amt Large (67-100%) -Granulation Quality Pale,[place] -Slough/Fibrin No -Necrosis Amt None Present (0 %) -Texture (Anna-wound Skin Appearance) Assessed, Scarring -Moisture (Anna-wound Skin Appearance Assessed,Dry/ ) Scaly -Color (Anna-wound Skin Appearance) Assessed -Temperature (Anna-wound Skin No Abnormality Appearance) (Pt Warm) -Tenderness on Palpation (Anna-wound No Skin Appearance) -Ulcer Cleansing Rinsed/ Irrigated with Saline -Foul Odor after Cleansing No -Anesthetic Used 5% Lidocaine Gel [Edema Assessment] -Lower Limb Edema Present Yes -Right Calf (cm) 35.7 -Right Ankle (cm) 21.2 WC - Nurse 2 - General Ulcer CM Notes Start: 03/24/20 15:34 Freq: Status: Active Protocol: Activity Type Activity Date Activity User E-Sign Co-Sign Detail Recorded Client Recorded Date Recorded By Document 03/24/20 15:52 [id number] 03/24/20 15:53 03/24/20 15:52 Wound Center Nurse 2 [Procedure/Treatment] #5 right hallux -Time 15:52 -Correct Patient Yes -Correct Side, Site, Position Yes -Correct Procedure Yes -Procedure Performed Yes -Type of Procedure Debridement -Clinical Debridement Subcutaneous -Post Debridement Size (cm) - Length 0.9 -Post Debridement Size (cm) - Width 0.5 -Post Debridement Size (cm) - Depth 0.2 -Total Square (cm) 0.45 -Wound/Ulcer Outcome Not Healed -Ulcer Cleansing Rinsed/ Irrigated with Saline -Foul Odor after Cleansing No -Bioengineered Tissue No -Bleeding Controlled with Pressure -Offloading Yes -Type of Offloading Surgical Shoe -Treatment Response Procedure Tolerated Well [See Physician Procedure note for Specifics] Pain Scale: 0-10 Numeric [Pain] -Is Patient Pain Free? Yes Musculoskeletal: No Tenderness to Palpation of Joints or Extremities, Muscle Wasting Neurological: - - Lack of normal epicritic sensation Psych/Mental Status: Normal Affect, Appropriate Debridement Note Post-Debridement Measurements/Treatment WC - Nurse 2 - General Ulcer CM Notes Start: 03/24/20 15:34 Freq: Status: Active Protocol: Activity Type Activity Date Activity User E-Sign Co-Sign Detail Recorded Client Recorded Date Recorded By Document 03/24/20 15:52 DORA [id number] 03/24/20 15:53 DORA 03/24/20 15:52 Wound Center Nurse 2 #5 right hallux -Time 15:52 -Correct Patient Yes -Correct Side, Site, Position Yes -Correct Procedure Yes -Procedure Performed Yes -Type of Procedure Debridement -Clinical Debridement Subcutaneous -Post Debridement Size (cm) - Length 0.9 -Post Debridement Size (cm) - Width 0.5 -Post Debridement Size (cm) - Depth 0.2 -Total Square (cm) 0.45 -Wound/Ulcer Outcome Not Healed -Ulcer Cleansing Rinsed/ Irrigated with Saline -Foul Odor after Cleansing No -Bioengineered Tissue No -Bleeding Controlled with Pressure -Offloading Yes -Type of Offloading Surgical Shoe -Treatment Response Procedure Tolerated Well Pain Scale: 0-10 Numeric Is Patient Pain Free? Yes Wound debrided: medial foot Laterality: Right Wound Grade/Stage: grade 2 Type of Debridement: Excisional debridement Anesthesia Used: 5% Lidocaine Gel Depth: in the subcutaneous layer Percentage of wound debrided: 100 Instrument Used: #15 blade Tissue Removed: fibrous, devitalized subcutaneous, biofilm, slough Severity: Fat Layer Exposed Amount of bleeding with debridement: Mild Bleeding Controlled with: Pressure Patient tolerated procedure well Assessment/Plan Assessment: Right foot ulcer with muscle and capsular tissue exposed. diabetes with neuropathy. vascular disease. malnutrition. Bacterial colonization right foot treated and resolved Plan: I reviewed and discussed this case with the patient. Debridement was performed as noted in the clinical panel. He completed a course of advanced wound healing product, epi-fix. Hydrogel or silver cell was recommended today. He had these products at home and was advised to switch over to the hydrogel if the drainage decreases too much and the dressing is sticking. He already has a surgical shoe and proper use of straps to avoid direct pressure on the site were reviewed again this afternoon. His x-rays were reviewed previously at the foot and ankle center which did not demonstrate any osseous destruction, foreign body, or soft tissue emphysema. Lab work was reviewed after clinic with a white blood cell count of 8.6, C-reactive protein of 17, and sedimentation rate of 70. Trends will be monitored and this demonstrates an inflammatory process is in place and suggests her supports of malnutrition as well. No other gross abnormalities were noted. There is no systemic or lesley local signs of infection however the devitalized tissue is a concern. This to be monitored closely. It is also noted he has a history of vascular disease with occlusive disease identified even with his updated noninvasive vascular studies performed in early September 2019. Arterial intervention is not planned at this time. He also has venous disease and has started undergoing intervention with Dr. Calvillo for this condition. This is going well and he has reduction in leg edema. To follow-up with the wound healing center in 1 week or call sooner if he has any questions, concerns, or deterioration in status or development of infection. I answered his questions.
[2020-04-14 15:15] VITALS: BP 116/29; PULSE 59; RESP 18; TEMP 37; BMI 32.3
--- NOTE | 2020-04-14 16:18 | PN.PCM_ITS ---
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 Current Visit: Yes Code(s): L97.513 - Non-pressure chronic ulcer of other part of right foot with necrosis of muscle (2) Peripheral vascular occlusive disease Status: Chronic Current Visit: Yes Code(s): I73.9 - Peripheral vascular disease, unspecified (3) Chronic kidney disease, stage 3 Status: Chronic Current Visit: Yes Code(s): N18.3 - Chronic kidney disease, stage 3 (moderate) (4) Venous insufficiency Status: Chronic Current Visit: Yes Type of Wound Date of Service: 04/14/20 Chief Complaint: Foot ulcer History of Wound: This 75-year-old male follows up for right foot ulcer and his bunion site. He denies fevers, chills, nausea, vomiting, diarrhea, loss of appetite. He denies drainage or redness. He has been undergoing limb venous intervention with Dr. Calvillo. He denies redness or odor. He has completed a course of advanced wound healing products including epi-cord and epi-fix. He has been performing dressing changes with [employer] as advised. He wears surgical offloading shoe. Progress of Wound: Right foot improving - Physical Exam Vital Signs Temp Pulse Resp BP 98.6 F 59 L 18 116/29 L 04/14/20 15:15 04/14/20 15:15 04/14/20 15:15 04/14/20 15:15 General: Alert, Oriented x3, Cooperative, No apparent distress HEENT: Atraumatic Extremities: No cyanosis, Capillary Refill Less than 3 Seconds, No Calf Tenderness, Diminished Peripheral Pulses, Edema - Decreased Skin: Ulcer/ Wound - No purulence, erythema, streaking, odor, infection. No deep exposure of capsular bone tissue. The ulcer bed is granular. The adjacent skin is hairless and atrophic Wound Measurements and Assessment WC - Nurse 1 - General Ulcer Measurement Start: 03/24/20 15:34 Freq: Status: Active Protocol: Activity Type Activity Date Activity User E-Sign Co-Sign Detail Recorded Client Recorded Date Recorded By Document 04/14/20 15:15 RB [id number] 04/14/20 15:17 RB 04/14/20 15:15 Wound Center Nurse 1 [Ulcer Assessment] #5 right hallux -Combined with other wound No -Current Size (cm) - Length 0.8 -Current Size (cm) - Width 0.3 -Current Size (cm) - Depth 0.2 -Total Square Cm 0.24 -Tunneling No -Undermining/Tunneling No -Circular Undermining No -Exudate Amt Small -Exudate Type Serosanguineous -Wound Margin Flat & Intact -Granulation Amt Medium (34-66%) -Granulation Quality [place] -Slough/Fibrin Yes -Necrosis Amt Small (1-33%) -Necrotic Tissue Type Adherent Slough -Structure Exposed N/A -Texture (Anna-wound Skin Appearance) Assessed -Moisture (Anna-wound Skin Appearance Assessed ) -Color (Anna-wound Skin Appearance) Assessed -Temperature (Anna-wound Skin No Abnormality Appearance) (Pt Warm) -Tenderness on Palpation (Anna-wound No Skin Appearance) -Ulcer Cleansing Wound Cleanser -Foul Odor after Cleansing No -Anesthetic Used 5% Lidocaine Gel WC - Nurse 2 - General Ulcer CM Notes Start: 04/06/20 19:45 Freq: Status: Active Protocol: Activity Type Activity Date Activity User E-Sign Co-Sign Detail Recorded Client Recorded Date Recorded By Document 04/14/20 15:01 [id number] 04/14/20 15:03 04/14/20 15:01 Wound Center Nurse 2 [Procedure/Treatment] -Time 15:01 -Correct Patient Yes -Correct Side, Site, Position Yes -Correct Procedure Yes -Procedure Performed Yes -Type of Procedure Debridement -Clinical Debridement Subcutaneous -Tissue Removed Subcutaneous -Post Debridement (cm) - Length 0.7 -Post Debridement (cm) - Width 0.9 -Post Debridement (cm) - Depth 0.2 -Total Square (Post) (cm) 0.63 -Area of Debridement (cm) - Length 0.7 -Area of Debridement (cm) - Width 0.9 -Total Square (Area) (cm) 0.63 -Tunneling No -Undermining/Tunneling No -Circular Undermining No -Wound/Ulcer Outcome Not Healed -Ulcer Cleansing Rinsed/ Irrigated with Saline -Foul Odor after Cleansing No -Bioengineered Tissue No -Bleeding Controlled with Pressure -Offloading Yes -Type of Offloading Surgical Shoe -Treatment Response Procedure Tolerated Well -Debridement - Subq, 1st 20sq cm Yes [See Physician Procedure note for Specifics] Pain Scale: 0-10 Numeric [Pain] -Is Patient Pain Free? Yes Musculoskeletal: No Tenderness to Palpation of Joints or Extremities, Muscle Wasting Neurological: - - Lack of normal epicritic sensation to light touch Psych/Mental Status: Normal Affect, Appropriate Debridement Note Post-Debridement Measurements/Treatment WC - Nurse 2 - General Ulcer CM Notes Start: 04/06/20 19:45 Freq: Status: Active Protocol: Activity Type Activity Date Activity User E-Sign Co-Sign Detail Recorded Client Recorded Date Recorded By Document 04/14/20 15:01 [id number] 04/14/20 15:03 04/14/20 15:01 Wound Center Nurse 2 #5 right hallux -Time 15:01 -Correct Patient Yes -Correct Side, Site, Position Yes -Correct Procedure Yes -Procedure Performed Yes -Type of Procedure Debridement -Clinical Debridement Subcutaneous -Tissue Removed Subcutaneous -Post Debridement (cm) - Length 0.7 -Post Debridement (cm) - Width 0.9 -Post Debridement (cm) - Depth 0.2 -Total Square (Post) (cm) 0.63 -Area of Debridement (cm) - Length 0.7 -Area of Debridement (cm) - Width 0.9 -Total Square (Area) (cm) 0.63 -Tunneling No -Undermining/Tunneling No -Circular Undermining No -Wound/Ulcer Outcome Not Healed -Ulcer Cleansing Rinsed/ Irrigated with Saline -Foul Odor after Cleansing No -Bioengineered Tissue No -Bleeding Controlled with Pressure -Offloading Yes -Type of Offloading Surgical Shoe -Treatment Response Procedure Tolerated Well -Debridement - Subq, 1st 20sq cm Yes Pain Scale: 0-10 Numeric Is Patient Pain Free? Yes Wound debrided: medial forefoot Laterality: Right Wound Grade/Stage: grade 2 Type of Debridement: Excisional debridement Anesthesia Used: 5% Lidocaine Gel Depth: in the subcutaneous layer Percentage of wound debrided: 100 Instrument Used: #15 blade Tissue Removed: fibrous, devitalized subcutaneous, biofilm, slough Severity: Fat Layer Exposed Amount of bleeding with debridement: Mild Bleeding Controlled with: Pressure Patient tolerated procedure well Assessment/Plan Active Problems (Last Reviewed 06/12/19 @ 11:08 by Carly Mckeon) Ulcer of right foot with necrosis of muscle (Chronic) Peripheral vascular occlusive disease (Chronic) Chronic kidney disease, stage 3 (Chronic) Venous insufficiency (Chronic) Assessment: Right foot ulcer with muscle and capsular tissue exposed. diabetes with neuropathy. vascular disease. malnutrition Plan: I reviewed and discussed this case with the patient. Debridement was performed as noted in the clinical panel. He was reassured no local signs of infection are noted today. He was advised to change the dressing daily with [employer]; this was applied today. Advanced wound healing product was previously applied in a serial manner including epi-fix. He already has a surgical shoe and proper use of straps to avoid direct pressure on the site were reviewed again this afternoon. I removed additional part of the tissue flap to avoid friction or rubbing over the ulcer site with a scissor today. His x-rays were reviewed previously at the foot and ankle center which did not demonstrate any osseous destruction, foreign body, or soft tissue emphysema. Lab work was reviewed after clinic with a white blood cell count of 8.6, C-reactive protein of 17, and sedimentation rate of 70. Trends will be monitored and this demonstrates an inflammatory process is in place and suggests her supports of malnutrition as well. No other gross abnormalities were noted. There is no systemic or lesley local signs of infection however the devitalized tissue is a concern. This to be monitored closely. It is also noted he has a history of vascular disease with occlusive disease identified even with his updated noninvasive vascular studies performed in early September 2019. Arterial intervention is not planned at this time. He also has venous disease and has started undergoing intervention with Dr. Calvillo for this condition. This is going well and he has reduction in leg edema. To follow-up with the wound healing center in 2 weeks or call sooner if he has any questions, concerns, or deterioration in status or development of infection. I answered his questions.
== END 2020-04-19 23:59 ==
LOC: WC 14:15
PROVIDERS: PCP Family Medicine; Visit Provider Podiatrist
DX: E11.621 Type 2 diabetes mellitus with foot ulcer (principal); E11.51 Type 2 diabetes mellitus with diabetic peripheral angiopathy without gangrene; E11.22 Type 2 diabetes mellitus with diabetic chronic kidney disease; L97.512 Non-pressure chronic ulcer of other part of right foot with fat layer exposed; N18.3 Chronic kidney disease, stage 3 (moderate); I87.2 Venous insufficiency (chronic) (peripheral); E11.40 Type 2 diabetes mellitus with diabetic neuropathy, unspecified; R60.0 Localized edema
CPT/HCPCS: 11042

== ENCOUNTER 2020-04-14 14:31 | Outpatient (RCR) | payer MEDICARE, OTHER, SELFPAY ==
[2020-03-24 15:34] VITALS: BMI 32.3
[2020-04-14 14:22] VITALS: BP 116/29; PULSE 59; RESP 18; TEMP 37; BMI 32.3
== END 2020-04-14 14:33 | disposition home or self-care (01) ==
LOC: WC 14:31
PROVIDERS: PCP Family Medicine; Visit Provider Podiatrist
DX: E11.621 Type 2 diabetes mellitus with foot ulcer (principal)

== ENCOUNTER 2020-05-19 09:15 | Outpatient (RCR) | payer MEDICARE, OTHER, SELFPAY ==
[2020-04-20 00:32] VITALS: BP 116/29; PULSE 59; RESP 18; TEMP 37
[2020-04-28 13:30] VITALS: BP 128/63; PULSE 64; RESP 16; TEMP 36.4; BMI 32.3
--- NOTE | 2020-04-28 16:01 | PCM.WC.PN ---
(1) Ulcer of left lower extremity with fat layer exposed Status: Acute Current Visit: Yes Code(s): L97.922 - Non-pressure chronic ulcer of unspecified part of left lower leg with fat layer exposed (2) Peripheral vascular occlusive disease Status: Chronic Current Visit: Yes Code(s): I73.9 - Peripheral vascular disease, unspecified (3) Type 2 diabetes mellitus with diabetic polyneuropathy Status: Chronic Current Visit: Yes Code(s): E11.42 - Type 2 diabetes mellitus with diabetic polyneuropathy (4) Delayed wound healing Status: Chronic Current Visit: Yes Code(s): T14.8 - Other injury of unspecified body region (5) Malnutrition Status: Chronic Current Visit: Yes Code(s): E46 - Unspecified protein-calorie malnutrition (6) Lower extremity edema Status: Chronic Current Visit: Yes Code(s): R60.0 - Localized edema Type of Wound Date of Service: 04/28/20 Chief Complaint: right Foot ulcer History of Wound: This 75-year-old male follows up for right foot ulcer and his bunion site. He denies fevers, chills, nausea, vomiting, diarrhea, loss of appetite. He denies drainage or redness. He has been undergoing limb venous intervention with Dr. Calvillo. He denies redness or odor. He has completed a course of advanced wound healing products including epi-cord and epi-fix. He has been performing dressing changes with [employer] as advised. He wears surgical offloading shoe. Progress of Wound: Right foot improving - Physical Exam Vital Signs Temp Pulse Resp BP 97.5 F L 64 16 128/63 H 04/28/20 13:30 04/28/20 13:30 04/28/20 13:30 04/28/20 13:30 General: Alert, Oriented x3, Cooperative HEENT: Atraumatic Extremities: No cyanosis, No edema, No Calf Tenderness, Diminished Peripheral Pulses, Edema Skin: Ulcer/ Wound - No purulence, erythema, streaking, odor, infection. Adjacent skin is hairless and atrophic. Peripheral epithelialization is noted at the ulcer bed. No capsule or necrosis exposure noted Wound Measurements and Assessment WC - Nurse 1 - General Ulcer Measurement Start: 04/28/20 13:30 Freq: Status: Active Protocol: Activity Type Activity Date Activity User E-Sign Co-Sign Detail Recorded Client Recorded Date Recorded By Document 04/28/20 13:30 [facility] [id number] 04/28/20 13:36 [facility] 04/28/20 13:30 Wound Center Nurse 1 [Ulcer Assessment] #5 right hallux -Combined with other wound No -Current Size (cm) - Length 0.2 -Current Size (cm) - Width 0.9 -Current Size (cm) - Depth 0.2 -Total Square Cm 0.18 -Photo Taken No -Epithelialization None Present -Tunneling No -Undermining/Tunneling No -Circular Undermining No -Exudate Amt Small -Exudate Type Serosanguineous -Wound Margin Distinct, Outline Attached -Granulation Amt Medium (34-66%) -Granulation Quality Red -Slough/Fibrin Yes -Necrosis Amt Medium (34-66%) -Necrotic Tissue Type Adherent Slough -Texture (Anna-wound Skin Appearance) Assessed,Callus ,Scarring -Moisture (Anna-wound Skin Appearance Assessed,Dry/ ) Scaly -Color (Anna-wound Skin Appearance) Assessed -Temperature (Anna-wound Skin No Abnormality Appearance) (Pt Warm) -Tenderness on Palpation (Anna-wound No Skin Appearance) -Ulcer Cleansing Rinsed/ Irrigated with Saline -Foul Odor after Cleansing No -Anesthetic Used 5% Lidocaine Gel [Edema Assessment] -Lower Limb Edema Present Yes -Right Calf (cm) 35.4 -Right Ankle (cm) 21.6 - Nurse 2 - General Ulcer CM Notes Start: 04/28/20 13:30 Freq: Status: Active Protocol: Activity Type Activity Date Activity User E-Sign Co-Sign Detail Recorded Client Recorded Date Recorded By Document 04/28/20 13:55 [id number] 04/28/20 13:59 04/28/20 13:55 Wound Center Nurse 2 [Procedure/Treatment] #5 right hallux -Time 13:58 -Correct Patient Yes -Correct Side, Site, Position Yes -Correct Procedure Yes -Procedure Performed Yes -Type of Procedure Debridement -Clinical Debridement Subcutaneous -Tissue Removed Subcutaneous -Post Debridement (cm) - Length 1.1 -Post Debridement (cm) - Width 0.4 -Post Debridement (cm) - Depth 0.2 -Total Square (Post) (cm) 0.44 -Area of Debridement (cm) - Length 1.1 -Area of Debridement (cm) - Width 0.4 -Total Square (Area) (cm) 0.44 -Tunneling No -Undermining/Tunneling No -Circular Undermining No -Wound/Ulcer Outcome Not Healed -Ulcer Cleansing Rinsed/ Irrigated with Saline -Foul Odor after Cleansing No -Bioengineered Tissue No -Bleeding Controlled with Pressure -Offloading Yes -Type of Offloading Surgical Shoe -Treatment Response Procedure Tolerated Well -Debridement - Subq, 1st 20sq cm Yes [See Physician Procedure note for Specifics] Pain Scale: 0-10 Numeric [Pain] -Is Patient Pain Free? Yes - Nurse 3 - General Ulcer D/C NN Start: 04/28/20 13:30 Freq: Status: Active Protocol: Activity Type Activity Date Activity User E-Sign Co-Sign Detail Recorded Client Recorded Date Recorded By Document 04/28/20 14:03 [id number] 04/28/20 14:04 04/28/20 14:03 Wound Care Nurse 3 [Wound Dressing] #5 right hallux -Ulcer Cleansing Rinsed/ Irrigated with Saline -Foul Odor after Cleansing No -Primary Dressing Applied Aquacel AG 2x2 -Primary Dressing Covered/Secured Dry Gauze, with Secured with Tape -Aquacel AG 2x2 1 [Compression Applied] Right -Size of Tubigrip Used Size D -Size D ($) 0 Pain Scale: 0-10 Numeric [Pain] -Is Patient Pain Free? Yes - Visit Discharge [Visit Discharge Information] -Discharge Condition Stable -Ambulatory Status Ambulatory,Cane -Transportation Private Auto -Medication Reconcilliation completed Yes & provided to patient/care provider -Clinical Summary of Care Provided Yes Musculoskeletal: No Tenderness to Palpation of Joints or Extremities, Muscle Wasting Neurological: - - Lack of normal epicritic sensation via light touch Psych/Mental Status: Normal Affect, Appropriate Debridement Note Post-Debridement Measurements/Treatment - Nurse 2 - General Ulcer CM Notes Start: 04/28/20 13:30 Freq: Status: Active Protocol: Activity Type Activity Date Activity User E-Sign Co-Sign Detail Recorded Client Recorded Date Recorded By Document 04/28/20 13:55 [id number] 04/28/20 13:59 04/28/20 13:55 Wound Center Nurse 2 #5 right hallux -Time 13:58 -Correct Patient Yes -Correct Side, Site, Position Yes -Correct Procedure Yes -Procedure Performed Yes -Type of Procedure Debridement -Clinical Debridement Subcutaneous -Tissue Removed Subcutaneous -Post Debridement (cm) - Length 1.1 -Post Debridement (cm) - Width 0.4 -Post Debridement (cm) - Depth 0.2 -Total Square (Post) (cm) 0.44 -Area of Debridement (cm) - Length 1.1 -Area of Debridement (cm) - Width 0.4 -Total Square (Area) (cm) 0.44 -Tunneling No -Undermining/Tunneling No -Circular Undermining No -Wound/Ulcer Outcome Not Healed -Ulcer Cleansing Rinsed/ Irrigated with Saline -Foul Odor after Cleansing No -Bioengineered Tissue No -Bleeding Controlled with Pressure -Offloading Yes -Type of Offloading Surgical Shoe -Treatment Response Procedure Tolerated Well -Debridement - Subq, 1st 20sq cm Yes Pain Scale: 0-10 Numeric Is Patient Pain Free? Yes - Nurse 3 - General Ulcer D/C NN Start: 04/28/20 13:30 Freq: Status: Active Protocol: Activity Type Activity Date Activity User E-Sign Co-Sign Detail Recorded Client Recorded Date Recorded By Document 04/28/20 14:03 [id number] 04/28/20 14:04 04/28/20 14:03 Wound Care Nurse 3 #5 right hallux -Ulcer Cleansing Rinsed/ Irrigated with Saline -Foul Odor after Cleansing No -Primary Dressing Applied Aquacel AG 2x2 -Primary Dressing Covered/Secured with Dry Gauze, Secured with Tape -Aquacel AG 2x2 1 Right -Size of Tubigrip Used Size D -Size D ($) 0 Pain Scale: 0-10 Numeric Is Patient Pain Free? Yes - Visit Discharge Discharge Condition Stable Ambulatory Status Ambulatory,Cane Transportation Private Auto Medication Reconcilliation completed & Yes provided to patient/care provider Clinical Summary of Care Provided Yes Wound debrided: medial forefoot Laterality: Right Wound Grade/Stage: grade 2 Type of Debridement: Excisional debridement Anesthesia Used: 5% Lidocaine Gel Depth: in the subcutaneous layer Percentage of wound debrided: 100 Instrument Used: #15 blade Tissue Removed: fibrous, devitalized subcutaneous, biofilm, slough Severity: Fat Layer Exposed Amount of bleeding with debridement: Mild Bleeding Controlled with: Pressure Patient tolerated procedure well Assessment/Plan Active Problems (Last Reviewed 06/12/19 @ 11:08 by Carly Mckeon) Ulcer of left lower extremity with fat layer exposed (Acute) Peripheral vascular occlusive disease (Chronic) Type 2 diabetes mellitus with diabetic polyneuropathy (Chronic) Delayed wound healing (Chronic) Malnutrition (Chronic) Lower extremity edema (Chronic) Assessment: Right foot ulcer with muscle and capsular tissue exposed. diabetes with neuropathy. vascular disease. malnutrition Plan: I reviewed and discussed this case with the patient. Debridement was performed as noted in the clinical panel. He was reassured no local signs of infection are noted today. He was advised to change the dressing daily with [employer]; this was applied today. Advanced wound healing product was previously applied in a serial manner including epi-fix. He already has a surgical shoe and proper use of straps to avoid direct pressure on the site were reviewed again this afternoon. His x-rays were reviewed previously at the foot and ankle center which did not demonstrate any osseous destruction, foreign body, or soft tissue emphysema. Lab work was reviewed after clinic with a white blood cell count of 8.6, C-reactive protein of 17, and sedimentation rate of 70. Trends will be monitored and this demonstrates an inflammatory process is in place and suggests her supports of malnutrition as well. No other gross abnormalities were noted. There is no systemic or lesley local signs of infection however the devitalized tissue is a concern. This to be monitored closely. It is also noted he has a history of vascular disease with occlusive disease identified even with his updated noninvasive vascular studies performed in early September 2019. Arterial intervention is not planned at this time. He also has venous disease and has started undergoing intervention with Dr. Calvillo for this condition. This is going well and he has reduction in leg edema. To follow-up with the wound healing center in 2 weeks or call sooner if he has any questions, concerns, or deterioration in status or development of infection. I answered his questions.
[2020-05-19 09:17] VITALS: BP 137/72; PULSE 66; RESP 22; TEMP 36.5; BMI 32.3
[2020-05-19 09:48] VITALS: BP 142/74; PULSE 76; RESP 18
--- NOTE | 2020-05-19 13:08 | PN.PCM_ITS ---
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 He denies fevers, chills, nausea, vomiting, diarrhea, loss of appetite. He denies drainage or redness. He has been undergoing limb venous intervention with Dr. Calvillo. He denies redness or odor. He has completed a course of advanced wound healing products including epi-cord and epi-fix. He has been performing dressing changes with [place] [employer] as advised. He wears surgical offloading shoe. Progress of Wound: Right foot improving - Physical Exam Vital Signs Temp Pulse Resp BP 97.7 F L 76 18 142/74 H 05/19/20 09:17 05/19/20 09:48 05/19/20 09:48 05/19/20 09:48 General: Alert, Oriented x3, Cooperative, No apparent distress HEENT: Atraumatic Extremities: No cyanosis, Capillary Refill Less than 3 Seconds, No Calf Tenderness, Diminished Peripheral Pulses, Edema - Mild Skin: Ulcer/ Wound - No purulence, erythema, streaking, odor, infection. She has continued delayed healing and the base is granular with some peripheral callus noted. There is no longer any exposed capsule tissue. No probe to bone. His adjacent skin is hairless and atrophic Wound Measurements and Assessment WC - Nurse 1 - General Ulcer Measurement Start: 04/28/20 13:30 Freq: Status: Active Protocol: Activity Type Activity Date Activity User E-Sign Co-Sign Detail Recorded Client Recorded Date Recorded By Document 05/19/20 09:17 DL [id number] 05/19/20 09:26 DL 05/19/20 09:17 Wound Center Nurse 1 [Ulcer Assessment] #5 right hallux -Current Size (cm) - Length 1 -Current Size (cm) - Width 0.3 -Current Size (cm) - Depth 0.1 -Total Square Cm 0.3 -Photo Taken No -Exudate Amt None Present -Wound Margin Thickened -Granulation Amt None Present (0 %) -Necrosis Amt Large (67-100%) -Necrotic Tissue Type Adherent Slough -Structure Exposed N/A -Texture (Anna-wound Skin Appearance) Scarring -Moisture (Anna-wound Skin Appearance Dry/Scaly ) -Color (Anna-wound Skin Appearance) No Abnormality -Temperature (Anna-wound Skin No Abnormality Appearance) (Pt Warm) -Tenderness on Palpation (Anna-wound No Skin Appearance) -Ulcer Cleansing Wound Cleanser -Foul Odor after Cleansing No -Anesthetic Used 4% Lidocaine Solution [Edema Assessment] -Right Calf (cm) 35 -Right Ankle (cm) 21.5 WC - Nurse 2 - General Ulcer CM Notes Start: 04/28/20 13:30 Freq: Status: Active Protocol: Activity Type Activity Date Activity User E-Sign Co-Sign Detail Recorded Client Recorded Date Recorded By Document 05/19/20 09:35 DORA [id number] 05/19/20 09:41 05/19/20 09:35 Wound Center Nurse 2 [Procedure/Treatment] #5 right hallux -Time 09:36 -Correct Patient Yes -Correct Side, Site, Position Yes -Correct Procedure Yes -Procedure Performed Yes -Type of Procedure Debridement -Clinical Debridement Subcutaneous -Tissue Removed Subcutaneous -Post Debridement (cm) - Length 0.9 -Post Debridement (cm) - Width 0.4 -Post Debridement (cm) - Depth 0.1 -Total Square (Post) (cm) 0.36 -Area of Debridement (cm) - Length 0.9 -Area of Debridement (cm) - Width 0.4 -Total Square (Area) (cm) 0.36 -Tunneling No -Undermining/Tunneling No -Circular Undermining No -Wound/Ulcer Outcome Not Healed -Ulcer Cleansing Rinsed/ Irrigated with Saline -Foul Odor after Cleansing No -Bioengineered Tissue No -Bleeding Controlled with Pressure -Offloading Yes -Type of Offloading Surgical Shoe -Treatment Response Procedure Tolerated Well -Debridement - Subq, 1st 20sq cm Yes [See Physician Procedure note for Specifics] Pain Scale: 0-10 Numeric [Pain] -Is Patient Pain Free? Yes - Nurse 3 - General Ulcer D/C NN Start: 04/28/20 13:30 Freq: Status: Active Protocol: Activity Type Activity Date Activity User E-Sign Co-Sign Detail Recorded Client Recorded Date Recorded By Document 05/19/20 09:48 [facility] [id number] 05/19/20 09:49 [facility] 05/19/20 09:48 Wound Care Nurse 3 [Wound Dressing] #5 right hallux -Ulcer Cleansing Rinsed/ Irrigated with Saline -Foul Odor after Cleansing No -Primary Dressing Applied Other -Other Dressing moist to dry drsg -Primary Dressing Covered/Secured Dry Gauze & with Roll Gauze, Secured with Tape [Compression Applied] Right -Other applied pts own single layer tubi Vital Signs [Pulse] -Pulse Rate (60-100) 76 -Pulse Location Monitor [Respirations] -Respiratory Rate (12-18) 18 -Respiratory rate source Observation -Oxygen Delivery Method Room Air [Blood Pressure] -Blood Pressure (90/60-120/80) 142/74 H -Blood Pressure Mean (mm Hg) 96 -Source Monitor -Position Sitting -Blood Pressure Location Right Arm Pain Scale: 0-10 Numeric [Pain] -Is Patient Pain Free? Yes - Visit Discharge [Visit Discharge Information] -Discharge Condition Stable -Ambulatory Status Ambulatory,Cane -Transportation Private Auto -Accompanied by yany Musculoskeletal: No Tenderness to Palpation of Joints or Extremities, Muscle Wasting Neurological: - - Lack of normal epicritic sensation light touch Psych/Mental Status: Normal Affect, Appropriate Debridement Note Post-Debridement Measurements/Treatment - Nurse 2 - General Ulcer CM Notes Start: 04/28/20 13:30 Freq: Status: Active Protocol: Activity Type Activity Date Activity User E-Sign Co-Sign Detail Recorded Client Recorded Date Recorded By Document 04/28/20 13:55 [id number] 04/28/20 13:59 Document 05/19/20 09:35 [id number] 05/19/20 09:41 04/28/20 05/19/20 13:55 09:35 Wound Center Nurse 2 #5 right hallux -Time 13:58 09:36 -Correct Patient Yes Yes -Correct Side, Site, Position Yes Yes -Correct Procedure Yes Yes -Procedure Performed Yes Yes -Type of Procedure Debridement Debridement -Clinical Debridement Subcutaneous Subcutaneous -Tissue Removed Subcutaneous Subcutaneous -Post Debridement (cm) - Length 1.1 0.9 -Post Debridement (cm) - Width 0.4 0.4 -Post Debridement (cm) - Depth 0.2 0.1 -Total Square (Post) (cm) 0.44 0.36 -Area of Debridement (cm) - Length 1.1 0.9 -Area of Debridement (cm) - Width 0.4 0.4 -Total Square (Area) (cm) 0.44 0.36 -Tunneling No No -Undermining/Tunneling No No -Circular Undermining No No -Wound/Ulcer Outcome Not Healed Not Healed -Ulcer Cleansing Rinsed/ Rinsed/ Irrigated with Irrigated with Saline Saline -Foul Odor after Cleansing No No -Bioengineered Tissue No No -Bleeding Controlled with Pressure Pressure -Offloading Yes Yes -Type of Offloading Surgical Shoe Surgical Shoe -Treatment Response Procedure Procedure Tolerated Well Tolerated Well -Debridement - Subq, 1st 20sq cm Yes Yes Pain Scale: 0-10 Numeric Is Patient Pain Free? Yes Yes - Nurse 3 - General Ulcer D/C NN Start: 04/28/20 13:30 Freq: Status: Active Protocol: Activity Type Activity Date Activity User E-Sign Co-Sign Detail Recorded Client Recorded Date Recorded By Document 04/28/20 14:03 [id number] 04/28/20 14:04 Document 05/19/20 09:48 [facility] [id number] 05/19/20 09:49 [facility] 04/28/20 05/19/20 14:03 09:48 Wound Care Nurse 3 #5 right hallux -Ulcer Cleansing Rinsed/ Rinsed/ Irrigated with Irrigated with Saline Saline -Foul Odor after Cleansing No No -Primary Dressing Applied Aquacel AG 2x2 Other -Other Dressing moist to dry drsg -Primary Dressing Covered/Secured with Dry Gauze, Dry Gauze & Secured with Roll Gauze, Tape Secured with Tape -Aquacel AG 2x2 1 Right -Size of Tubigrip Used Size D -Size D ($) 0 -Other applied pts own single layer tubi Pain Scale: 0-10 Numeric Is Patient Pain Free? Yes Yes Vital Signs Pulse Rate (60-100) 76 Pulse Location Monitor Respiratory Rate (12-18) 18 Respiratory rate source Observation Oxygen Delivery Method Room Air Blood Pressure (90/60-120/80) 142/74 H Blood Pressure Mean (mm Hg) 96 Source Monitor Position Sitting Blood Pressure Location Right Arm WC - Visit Discharge Discharge Condition Stable Stable Ambulatory Status Ambulatory,Cane Ambulatory,Cane Transportation Private Auto Private Auto Accompanied by yany Medication Reconcilliation completed & Yes provided to patient/care provider Clinical Summary of Care Provided Yes Wound debrided: medial forefoot Laterality: Right Wound Grade/Stage: grade 2 Type of Debridement: Excisional debridement Anesthesia Used: 5% Lidocaine Gel Depth: in the subcutaneous layer Percentage of wound debrided: 100 Instrument Used: #15 blade Tissue Removed: fibrous, devitalized subcutaneous, biofilm, slough Severity: Fat Layer Exposed Amount of bleeding with debridement: Mild Bleeding Controlled with: Pressure Patient tolerated procedure well Assessment/Plan Assessment: Right foot ulcer with muscle and capsular tissue exposed. diabetes with neuropathy. vascular disease. malnutrition Plan: I reviewed and discussed this case with the patient. Debridement was performed as noted in the clinical panel. He was reassured no local signs of infection are noted today. He was advised to change the dressing daily daken solution; a prescription was provided. Saline wet to dry dressing was applied in clinic today. This will help reduce bioburden which may be delaying the healing process. Advanced wound healing product was previously applied in a serial manner including epi-fix. He already has a surgical shoe and proper use of straps to avoid direct pressure on the site were reviewed again this afternoon. His x-rays were reviewed previously at the [facility] center which did not demonstrate any osseous destruction, foreign body, or soft tissue emphysema. Lab work was reviewed after clinic with a white blood cell count of 8.6, C- reactive protein of 17, and sedimentation rate of 70. Trends will be monitored and this demonstrates an inflammatory process is in place and suggests her supports of malnutrition as well. No other gross abnormalities were noted. There is no systemic or lesley local signs of infection however the devitalized tissue is a concern. This to be monitored closely. It is also noted he has a history of vascular disease with occlusive disease identified even with his updated noninvasive vascular studies performed in early September 2019. Arterial intervention is not planned at this time. He also has venous disease and has started undergoing intervention with Dr. Calvillo for this condition. This is going well and he has reduction in leg edema. To follow-up with the wound healing center in 2 weeks or call sooner if he has any questions, concerns, or deterioration in status or development of infection. I answered his questions.
== END 2020-05-19 23:59 ==
LOC: WC 09:15
PROVIDERS: PCP Family Medicine; Visit Provider Podiatrist
DX: E11.621 Type 2 diabetes mellitus with foot ulcer (principal); L97.513 Non-pressure chronic ulcer of other part of right foot with necrosis of muscle; E11.42 Type 2 diabetes mellitus with diabetic polyneuropathy; R60.0 Localized edema; E11.51 Type 2 diabetes mellitus with diabetic peripheral angiopathy without gangrene; L97.512 Non-pressure chronic ulcer of other part of right foot with fat layer exposed
CPT/HCPCS: 11042

== ENCOUNTER 2020-06-16 14:15 | Outpatient (RCR) | payer MEDICARE, OTHER, SELFPAY ==
[2020-05-20 00:30] VITALS: BP 142/74; PULSE 76; RESP 18; TEMP 36.5
[2020-06-02 14:26] VITALS: RESP 18; TEMP 36.4
--- NOTE | 2020-06-02 14:59 | PN.PCM_ITS ---
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 Code(s): L97.513 - Non-pressure chronic ulcer of other part of right foot with necrosis of muscle (2) Type 2 diabetes mellitus with diabetic polyneuropathy Status: Chronic Code(s): E11.42 - Type 2 diabetes mellitus with diabetic polyneuropathy (3) Delayed wound healing Status: Chronic Code(s): T14.8 - Other injury of unspecified body region (4) Malnutrition Status: Chronic Code(s): E46 - Unspecified protein-calorie malnutrition (5) Venous insufficiency Status: Chronic Type of Wound Date of Service: 06/02/20 Chief Complaint: right foot ulcer History of Wound: This 75-year-old male follows up for right foot ulcer and his bunion site. He denies fevers, chills, nausea, vomiting, diarrhea, loss of appetite. He denies drainage or redness. He has been undergoing limb venous intervention with Dr. Calvillo. He denies redness or odor. He has completed a course of advanced wound healing products including epi-cord and epi-fix. He has been performing dressing changes with Dakin's wet-to-dry dressing and offload with a surgical shoe. Progress of Wound: Right foot improving - Physical Exam Vital Signs Temp Pulse Resp BP 97.5 F L 59 L 18 140/38 H 06/02/20 14:26 06/02/20 14:26 06/02/20 14:26 06/02/20 14:26 General: Alert, Oriented x3, Cooperative, No apparent distress Extremities: No cyanosis, Capillary Refill Less than 3 Seconds, No Calf Tenderness, Diminished Peripheral Pulses, Edema Skin: Ulcer/ Wound - No purulence, erythema, stream, odor, infection. Base is granular and there is some peripheral callus. His skin is hairless and atrophic Wound Measurements and Assessment WC - Nurse 1 - General Ulcer Measurement Start: 06/02/20 14:26 Freq: Status: Active Protocol: Activity Type Activity Date Activity User E-Sign Co-Sign Detail Recorded Client Recorded Date Recorded By Document 06/02/20 14:26 DL [id number] 06/02/20 14:32 DL 06/02/20 14:26 Wound Center Nurse 1 [Ulcer Assessment] #5 right hallux -Current Size (cm) - Length 0.1 -Current Size (cm) - Width 0.1 -Current Size (cm) - Depth 0.1 -Total Square Cm 0.01 -Photo Taken No -Exudate Amt None Present -Wound Margin Thickened -Granulation Amt Small (1-33%) -Granulation Quality Millen -Necrosis Amt Small (1-33%) -Necrotic Tissue Type Adherent Slough -Structure Exposed N/A -Texture (Anna-wound Skin Appearance) Scarring -Moisture (Anna-wound Skin Appearance Dry/Scaly ) -Color (Anna-wound Skin Appearance) No Abnormality -Temperature (Anna-wound Skin No Abnormality Appearance) (Pt Warm) -Tenderness on Palpation (Anna-wound No Skin Appearance) -Ulcer Cleansing Rinsed/ Irrigated with Saline -Foul Odor after Cleansing No -Anesthetic Used 4% Lidocaine Solution WC - Nurse 2 - General Ulcer CM Notes Start: 06/02/20 14:26 Freq: Status: Active Protocol: Activity Type Activity Date Activity User E-Sign Co-Sign Detail Recorded Client Recorded Date Recorded By Document 06/02/20 14:47 [id number] 06/02/20 14:49 06/02/20 14:47 Wound Center Nurse 2 [Procedure/Treatment] -Time 14:48 -Correct Patient Yes -Correct Side, Site, Position Yes -Correct Procedure Yes -Procedure Performed Yes -Type of Procedure Debridement -Clinical Debridement Subcutaneous -Tissue Removed Subcutaneous -Post Debridement (cm) - Length 0.8 -Post Debridement (cm) - Width 0.3 -Post Debridement (cm) - Depth 0.2 -Total Square (Post) (cm) 0.24 -Area of Debridement (cm) - Length 0.8 -Area of Debridement (cm) - Width 0.3 -Total Square (Area) (cm) 0.24 -Tunneling No -Undermining/Tunneling No -Circular Undermining No -Wound/Ulcer Outcome Not Healed -Ulcer Cleansing Rinsed/ Irrigated with Saline -Foul Odor after Cleansing No -Bioengineered Tissue No -Bleeding Controlled with Pressure -Offloading Yes -Type of Offloading Surgical Shoe -Treatment Response Procedure Tolerated Well -Debridement - Subq, 1st 20sq cm Yes [See Physician Procedure note for Specifics] Pain Scale: 0-10 Numeric [Pain] -Is Patient Pain Free? Yes Musculoskeletal: No Tenderness to Palpation of Joints or Extremities, Muscle Wasting Neurological: - - Lack of normal epicritic sensation Psych/Mental Status: Normal Affect, Appropriate Debridement Note Post-Debridement Measurements/Treatment WC - Nurse 2 - General Ulcer CM Notes Start: 06/02/20 14:26 Freq: Status: Active Protocol: Activity Type Activity Date Activity User E-Sign Co-Sign Detail Recorded Client Recorded Date Recorded By Document 06/02/20 14:47 DORA [id number] 06/02/20 14:49 DORA 06/02/20 14:47 Wound Center Nurse 2 #5 right hallux -Time 14:48 -Correct Patient Yes -Correct Side, Site, Position Yes -Correct Procedure Yes -Procedure Performed Yes -Type of Procedure Debridement -Clinical Debridement Subcutaneous -Tissue Removed Subcutaneous -Post Debridement (cm) - Length 0.8 -Post Debridement (cm) - Width 0.3 -Post Debridement (cm) - Depth 0.2 -Total Square (Post) (cm) 0.24 -Area of Debridement (cm) - Length 0.8 -Area of Debridement (cm) - Width 0.3 -Total Square (Area) (cm) 0.24 -Tunneling No -Undermining/Tunneling No -Circular Undermining No -Wound/Ulcer Outcome Not Healed -Ulcer Cleansing Rinsed/ Irrigated with Saline -Foul Odor after Cleansing No -Bioengineered Tissue No -Bleeding Controlled with Pressure -Offloading Yes -Type of Offloading Surgical Shoe -Treatment Response Procedure Tolerated Well -Debridement - Subq, 1st 20sq cm Yes Pain Scale: 0-10 Numeric Is Patient Pain Free? Yes Wound debrided: medial forefoot Laterality: Right Wound Grade/Stage: grade 2 Type of Debridement: Excisional debridement Anesthesia Used: 5% Lidocaine Gel Depth: in the subcutaneous layer Percentage of wound debrided: 100 Instrument Used: #15 blade Tissue Removed: fibrous, devitalized subcutaneous, biofilm, slough Severity: Fat Layer Exposed Amount of bleeding with debridement: Mild Bleeding Controlled with: Pressure Patient tolerated procedure well Assessment/Plan Active Problems (Last Reviewed 06/12/19 @ 11:08 by Carly Mckeon) Ulcer of right foot with necrosis of muscle (Chronic) Type 2 diabetes mellitus with diabetic polyneuropathy (Chronic) Delayed wound healing (Chronic) Malnutrition (Chronic) Venous insufficiency (Chronic) Assessment: Right foot ulcer with muscle and capsular tissue exposed. diabetes with neuropathy. vascular disease. malnutrition Plan: I reviewed and discussed this case with the patient. Debridement was performed as noted in the clinical panel. He was reassured no local signs of infection are noted today. He was advised to change the dressing daily daken s olution; a prescription was provided. Saline wet to dry dressing was applied in clinic today. This will help reduce bioburden which may be delaying the healing process. Advanced wound healing product was previously applied in a serial manner including epi-fix. He already has a surgical shoe and proper use of straps to avoid direct pressure on the site were reviewed again this afternoon. His x-rays were reviewed previously at the foot and ankle center which did not demonstrate any osseous destruction, foreign body, or soft tissue emphysema. Lab work was reviewed after clinic with a white blood cell count of 8.6, C- reactive protein of 17, and sedimentation rate of 70. Trends will be monitored and this demonstrates an inflammatory process is in place and suggests her supports of malnutrition as well. No other gross abnormalities were noted. There is no systemic or lesley local signs of infection however the devitalized tissue is a concern. This to be monitored closely. It is also noted he has a history of vascular disease with occlusive disease identified even with his updated noninvasive vascular studies performed in early September 2019. Arterial intervention is not planned at this time. He also has venous disease and has started undergoing intervention with Dr. Calvillo for this condition. This is going well and he has reduction in leg edema. To follow-up with the wound healing center in 2 weeks or call sooner if he has any questions, concerns, or deterioration in status or development of infection. I answered his questions.
[2020-06-16 14:12] VITALS: BP 105/56; PULSE 61; RESP 20; TEMP 36.7; BMI 32.3
[2020-06-16 14:54] VITALS: BP 110/58
--- NOTE | 2020-06-16 16:01 | PCM.WC.PN ---
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 Code(s): L97.513 - Non-pressure chronic ulcer of other part of right foot with necrosis of muscle (2) Type 2 diabetes mellitus with diabetic polyneuropathy Status: Chronic Code(s): E11.42 - Type 2 diabetes mellitus with diabetic polyneuropathy (3) Delayed wound healing Status: Chronic Code(s): T14.8 - Other injury of unspecified body region (4) Malnutrition Status: Chronic Code(s): E46 - Unspecified protein-calorie malnutrition (5) Venous insufficiency Status: Chronic Type of Wound Date of Service: 06/16/20 Chief Complaint: right foot ulcer History of Wound: This 75-year-old male follows up for right foot ulcer and his bunion site. He denies fevers, chills, nausea, vomiting, diarrhea, loss of appetite. He denies drainage or redness. He has been undergoing limb venous intervention with Dr. Calvillo. He denies redness or odor. He has completed a course of advanced wound healing products including epi-cord and epi-fix. He has been performing dressing changes with Dakin's wet-to-dry dressing and offload with a surgical shoe. Progress of Wound: Right foot improving - Physical Exam Vital Signs Temp Pulse Resp BP 98.1 F 61 20 H 110/58 L 06/16/20 14:12 06/16/20 14:12 06/16/20 14:12 06/16/20 14:54 General: Alert, Oriented x3, Cooperative, No apparent distress HEENT: Atraumatic Extremities: No cyanosis, No edema, Capillary Refill Less than 3 Seconds, No Calf Tenderness, Diminished Peripheral Pulses Skin: Ulcer/ Wound - No purulence, erythema, streaking, odor, infection. The skin is hairless and atrophic. There is no deep tissue noted and peripheral epithelialization with ulcer size reduction is noted Wound Measurements and Assessment WC - Nurse 1 - General Ulcer Measurement Start: 06/02/20 14:26 Freq: Status: Active Protocol: Activity Type Activity Date Activity User E-Sign Co-Sign Detail Recorded Client Recorded Date Recorded By Document 06/16/20 14:12 [facility] [id number] 06/16/20 14:19 [facility] 06/16/20 14:12 Wound Center Nurse 1 [Ulcer Assessment] #5 right hallux -Combined with other wound No -Current Size (cm) - Length 0.3 -Current Size (cm) - Width 0.1 -Current Size (cm) - Depth 0.1 -Total Square Cm 0.03 -Photo Taken No -Epithelialization None Present -Tunneling No -Undermining/Tunneling No -Circular Undermining No -Exudate Amt None Present -Wound Margin Distinct, Outline Attached -Granulation Amt Small (1-33%) -Granulation Quality Red -Slough/Fibrin Yes -Necrosis Amt Large (67-100%) -Necrotic Tissue Type Adherent Slough -Texture (Anna-wound Skin Appearance) Assessed,Callus ,Scarring -Moisture (Anna-wound Skin Appearance Assessed,Dry/ ) Scaly -Color (Anna-wound Skin Appearance) Assessed -Temperature (Anna-wound Skin No Abnormality Appearance) (Pt Warm) -Tenderness on Palpation (Anna-wound No Skin Appearance) -Ulcer Cleansing Rinsed/ Irrigated with Saline -Foul Odor after Cleansing No -Anesthetic Used 5% Lidocaine Gel WC - Nurse 2 - General Ulcer CM Notes Start: 06/02/20 14:26 Freq: Status: Active Protocol: Activity Type Activity Date Activity User E-Sign Co-Sign Detail Recorded Client Recorded Date Recorded By Document 06/16/20 14:41 [id number] 06/16/20 14:44 06/16/20 14:41 Wound Center Nurse 2 [Procedure/Treatment] -Time 14:43 -Correct Patient Yes -Correct Side, Site, Position Yes -Correct Procedure Yes -Procedure Performed Yes -Type of Procedure Debridement -Clinical Debridement Subcutaneous -Tissue Removed Subcutaneous -Post Debridement (cm) - Length 0.1 -Post Debridement (cm) - Width 0.4 -Post Debridement (cm) - Depth 0.1 -Total Square (Post) (cm) 0.04 -Area of Debridement (cm) - Length 0.1 -Area of Debridement (cm) - Width 0.4 -Total Square (Area) (cm) 0.04 -Tunneling No -Undermining/Tunneling No -Circular Undermining No -Wound/Ulcer Outcome Not Healed -Ulcer Cleansing Rinsed/ Irrigated with Saline -Bioengineered Tissue No -Bleeding Controlled with Pressure -Offloading Yes -Type of Offloading Surgical Shoe -Treatment Response Procedure Tolerated Well -Debridement - Subq, 1st 20sq cm Yes [See Physician Procedure note for Specifics] Pain Scale: 0-10 Numeric [Pain] -Is Patient Pain Free? Yes - Nurse 3 - General Ulcer D/C NN Start: 06/02/20 14:26 Freq: Status: Active Protocol: Activity Type Activity Date Activity User E-Sign Co-Sign Detail Recorded Client Recorded Date Recorded By Document 06/16/20 14:54 RB [id number] 06/16/20 14:56 RB 06/16/20 14:54 Wound Care Nurse 3 [Wound Dressing] #5 right hallux -Ulcer Cleansing Rinsed/ Irrigated with Saline -Other Dressing 0.255 dakins solution slightly moistened gauze -Primary Dressing Covered/Secured Dry Gauze & with Roll Gauze, Secured with Tape Vital Signs [Blood Pressure] -Blood Pressure (90/60-120/80) 110/58 L -Blood Pressure Mean (mm Hg) 75 -Source Monitor -Blood Pressure Location Left Arm Pain Scale: 0-10 Numeric [Pain] -Is Patient Pain Free? Yes Teaching: Wound Center [Wound Center Education] (Items with an * have Printed Materials Available- Please identify what is given to patient under the Teaching materials given to patient and caregiver Section. Dressing Your Wound -Person Taught Patient -Teaching Method Discussion, Demonstration -Response to teaching Verbalize understanding WC - Visit Discharge [Visit Discharge Information] -Discharge Condition Stable -Ambulatory Status Ambulatory -Transportation Private Auto -Medication Reconcilliation completed No & provided to patient/care provider -Clinical Summary of Care Provided Yes Musculoskeletal: No Tenderness to Palpation of Joints or Extremities, Muscle Wasting Neurological: - - Lack of normal epicritic sensation to light touch Psych/Mental Status: Normal Affect, Appropriate Debridement Note Post-Debridement Measurements/Treatment - Nurse 2 - General Ulcer CM Notes Start: 06/02/20 14:26 Freq: Status: Active Protocol: Activity Type Activity Date Activity User E-Sign Co-Sign Detail Recorded Client Recorded Date Recorded By Document 06/02/20 14:47 [id number] 06/02/20 14:49 Document 06/16/20 14:41 [id number] 06/16/20 14:44 JF 06/02/20 06/16/20 14:47 14:41 Wound Center Nurse 2 #5 right hallux -Time 14:48 14:43 -Correct Patient Yes Yes -Correct Side, Site, Position Yes Yes -Correct Procedure Yes Yes -Procedure Performed Yes Yes -Type of Procedure Debridement Debridement -Clinical Debridement Subcutaneous Subcutaneous -Tissue Removed Subcutaneous Subcutaneous -Post Debridement (cm) - Length 0.8 0.1 -Post Debridement (cm) - Width 0.3 0.4 -Post Debridement (cm) - Depth 0.2 0.1 -Total Square (Post) (cm) 0.24 0.04 -Area of Debridement (cm) - Length 0.8 0.1 -Area of Debridement (cm) - Width 0.3 0.4 -Total Square (Area) (cm) 0.24 0.04 -Tunneling No No -Undermining/Tunneling No No -Circular Undermining No No -Wound/Ulcer Outcome Not Healed Not Healed -Ulcer Cleansing Rinsed/ Rinsed/ Irrigated with Irrigated with Saline Saline -Foul Odor after Cleansing No -Bioengineered Tissue No No -Bleeding Controlled with Pressure Pressure -Offloading Yes Yes -Type of Offloading Surgical Shoe Surgical Shoe -Treatment Response Procedure Procedure Tolerated Well Tolerated Well -Debridement - Subq, 1st 20sq cm Yes Yes Pain Scale: 0-10 Numeric Is Patient Pain Free? Yes Yes - Nurse 3 - General Ulcer D/C NN Start: 06/02/20 14:26 Freq: Status: Active Protocol: Activity Type Activity Date Activity User E-Sign Co-Sign Detail Recorded Client Recorded Date Recorded By Document 06/02/20 15:05 RB [id number] 06/02/20 15:07 RB Document 06/16/20 14:54 RB [id number] 06/16/20 14:56 RB 06/02/20 06/16/20 15:05 14:54 Wound Care Nurse 3 #5 right hallux -Ulcer Cleansing Rinsed/ Irrigated with Saline -Other Dressing saline 0.255 dakins moistened guaze solution slightly moistened gauze -Primary Dressing Covered/Secured with Dry Gauze,Dry Dry Gauze & Gauze & Roll Roll Gauze, Gauze,Secured Secured with with Tape Tape Right -Other pt own stockings bilat Treatment Response Procedure Tolerated Well Vital Signs Blood Pressure (90/60-120/80) 140/70 H 110/58 L Blood Pressure Mean (mm Hg) 93 75 Source Monitor Monitor Position Semi-Fowlers Blood Pressure Location Left Arm Left Arm Pain Scale: 0-10 Numeric Is Patient Pain Free? Yes Yes Teaching: Wound Center Dressing Your Wound -Person Taught Patient -Teaching Method Discussion, Demonstration -Response to teaching Verbalize understanding WC - Visit Discharge Discharge Condition Stable Stable Ambulatory Status Ambulatory,Cane Ambulatory Transportation Private Auto Private Auto Medication Reconcilliation completed & No No provided to patient/care provider Clinical Summary of Care Provided Yes Yes Wound debrided: medial forefoot Laterality: Right Wound Grade/Stage: grade 2 Type of Debridement: Excisional debridement Anesthesia Used: 5% Lidocaine Gel Depth: in the subcutaneous layer Percentage of wound debrided: 100 Instrument Used: #15 blade Tissue Removed: fibrous, devitalized subcutaneous, biofilm, slough Severity: Fat Layer Exposed Amount of bleeding with debridement: Mild Bleeding Controlled with: Pressure Patient tolerated procedure well Assessment/Plan Active Problems (Last Reviewed 06/12/19 @ 11:08 by Carly Mckeon) Ulcer of right foot with necrosis of muscle (Chronic) Type 2 diabetes mellitus with diabetic polyneuropathy (Chronic) Delayed wound healing (Chronic) Malnutrition (Chronic) Venous insufficiency (Chronic) Assessment: Right foot ulcer with muscle and capsular tissue exposed. diabetes with neuropathy. vascular disease. malnutrition Plan: I reviewed and discussed this case with the patient. Debridement was performed as noted in the clinical panel. He was reassured no local signs of infection are noted today. He was advised to change the dressing daily daken solution; a prescription was provided. Saline wet to dry dressing was applied in clinic today. This will help reduce bioburden which may be delaying the healing process. Advanced wound healing product was previously applied in a serial manner including epi-fix. He already has a surgical shoe and proper use of straps to avoid direct pressure on the site were reviewed again this afternoon. His x-rays were reviewed previously at the foot and ankle center which did not demonstrate any osseous destruction, foreign body, or soft tissue emphysema. Lab work was reviewed after clinic with a white blood cell count of 8.6, C-reactive protein of 17, and sedimentation rate of 70. Trends will be monitored and this demonstrates an inflammatory process is in place and suggests her supports of malnutrition as well. No other gross abnormalities were noted. There is no systemic or lesley local signs of infection however the devitalized tissue is a concern. This to be monitored closely. It is also noted he has a history of vascular disease with occlusive disease identified even with his updated noninvasive vascular studies performed in early September 2019. Arterial intervention is not planned at this time. He also has venous disease and has started undergoing intervention with Dr. Calvillo for this condition. This is going well and he has reduction in leg edema. To follow-up with the wound healing center in 2 weeks or call sooner if he has any questions, concerns, or deterioration in status or development of infection. I answered his questions.
== END 2020-06-19 23:59 ==
LOC: WC 14:15
PROVIDERS: PCP Family Medicine; Visit Provider Podiatrist
DX: E11.621 Type 2 diabetes mellitus with foot ulcer (principal); L97.513 Non-pressure chronic ulcer of other part of right foot with necrosis of muscle; E11.42 Type 2 diabetes mellitus with diabetic polyneuropathy; E46 Unspecified protein-calorie malnutrition; I87.2 Venous insufficiency (chronic) (peripheral)
CPT/HCPCS: 11042

== ENCOUNTER 2020-08-04 14:00 | Outpatient (RCR) | payer MEDICARE, OTHER, SELFPAY ==
[2020-06-20 00:19] VITALS: BP 110/58; PULSE 61; RESP 20; TEMP 36.7
[2020-06-28 14:04] VITALS: BMI 32.8
[2020-07-21 14:00] VITALS: BP 106/62; PULSE 62; RESP 18; TEMP 36.5; BMI 32.8
--- NOTE | 2020-07-21 21:06 | PCM.WC.PN ---
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 Code(s): L97.513 - Non-pressure chronic ulcer of other part of right foot with necrosis of muscle (2) Chronic kidney disease, stage 3 Status: Chronic Code(s): N18.3 - Chronic kidney disease, stage 3 (moderate) (3) Delayed wound healing Status: Chronic Code(s): T14.8 - Other injury of unspecified body region (4) Malnutrition Status: Chronic Code(s): E46 - Unspecified protein-calorie malnutrition (5) Peripheral vascular occlusive disease Status: Chronic Code(s): I73.9 - Peripheral vascular disease, unspecified (6) Type 2 diabetes mellitus with diabetic polyneuropathy Status: Chronic Code(s): E11.42 - Type 2 diabetes mellitus with diabetic polyneuropathy Type of Wound Date of Service: 07/21/20 Chief Complaint: right foot ulcer History of Wound: This 75-year-old male follows up for right foot ulcer and his bunion site. He denies fevers, chills, nausea, vomiting, diarrhea, loss of appetite. He denies drainage or redness. He has been undergoing limb venous intervention with Dr. Calvillo. He denies redness or odor. He has completed a course of advanced wound healing products including epi-cord and epi-fix. He has been performing dressing changes with Dakin's wet-to-dry dressing and offload with a surgical shoe. His ulcer was previously healed and has reopened. He presented recently to the foot and ankle center for help with nail palliation this was identified. Progress of Wound: Stable - Physical Exam Vital Signs Temp Pulse Resp BP 97.7 F L 62 18 106/62 07/21/20 14:00 07/21/20 14:00 07/21/20 14:00 07/21/20 14:00 General: Alert, Oriented x3, Cooperative, No apparent distress Extremities: No cyanosis, Capillary Refill Less than 3 Seconds, No Calf Tenderness, Diminished Peripheral Pulses, Edema - Mild Skin: Ulcer/ Wound - No purulence, erythema, string, odor, infection. No capsular phone noted. Ulcer bed is pale and granular. Peripheral hyperkeratotic tissue noted Wound Measurements and Assessment WC - Nurse 1 - General Ulcer Measurement Start: 07/21/20 14:00 Freq: Status: Active Protocol: Activity Type Activity Date Activity User E-Sign Co-Sign Detail Recorded Client Recorded Date Recorded By Document 07/21/20 14:00 [facility] [id number] 07/21/20 14:09 [facility] 07/21/20 14:00 Wound Center Nurse 1 [Ulcer Assessment] #5 right hallux -Combined with other wound No -Current Size (cm) - Length 0.4 -Current Size (cm) - Width 0.2 -Current Size (cm) - Depth 0.3 -Total Square Cm 0.08 -Photo Taken No -Epithelialization None Present -Tunneling No -Undermining/Tunneling No -Circular Undermining No -Wound Margin Distinct, Outline Attached -Granulation Amt Small (1-33%) -Granulation Quality Red -Slough/Fibrin Yes -Necrosis Amt Medium (34-66%) -Necrotic Tissue Type Adherent Slough -Texture (Anna-wound Skin Appearance) Callus,Scarring -Moisture (Anna-wound Skin Appearance Assessed,Dry/ ) Scaly -Color (Anna-wound Skin Appearance) Assessed -Temperature (Anna-wound Skin No Abnormality Appearance) (Pt Warm) -Tenderness on Palpation (Anna-wound No Skin Appearance) -Ulcer Cleansing Rinsed/ Irrigated with Saline -Foul Odor after Cleansing No -Anesthetic Used 4% Lidocaine Solution WC - Nurse 2 - General Ulcer CM Notes Start: 07/21/20 14:00 Freq: Status: Active Protocol: Activity Type Activity Date Activity User E-Sign Co-Sign Detail Recorded Client Recorded Date Recorded By Document 07/21/20 14:14 [id number] 07/21/20 14:19 07/21/20 14:14 Wound Center Nurse 2 [Procedure/Treatment] -Time 14:18 -Correct Patient Yes -Correct Side, Site, Position Yes -Correct Procedure Yes -Procedure Performed Yes -Type of Procedure Debridement -Clinical Debridement Subcutaneous -Tissue Removed Subcutaneous -Post Debridement (cm) - Length 0.5 -Post Debridement (cm) - Width 0.3 -Post Debridement (cm) - Depth 0.2 -Total Square (Post) (cm) 0.15 -Area of Debridement (cm) - Length 0.5 -Area of Debridement (cm) - Width 0.3 -Total Square (Area) (cm) 0.15 -Tunneling No -Undermining/Tunneling No -Circular Undermining No -Wound/Ulcer Outcome Not Healed -Ulcer Cleansing Rinsed/ Irrigated with Saline -Foul Odor after Cleansing No -Bioengineered Tissue No -Bleeding Controlled with Pressure -Offloading Yes -Type of Offloading Surgical Shoe -Debridement - Subq, 20sq cm Yes [See Physician Procedure note for Specifics] Pain Scale: 0-10 Numeric [Pain] -Is Patient Pain Free? Yes Musculoskeletal: Muscle Wasting Neurological: - - Altered sensation light touch Psych/Mental Status: Normal Affect, Appropriate Debridement Note Post-Debridement Measurements/Treatment WC - Nurse 2 - General Ulcer CM Notes Start: 07/21/20 14:00 Freq: Status: Active Protocol: Activity Type Activity Date Activity User E-Sign Co-Sign Detail Recorded Client Recorded Date Recorded By Document 07/21/20 14:14 [facility]ORA [id number] 07/21/20 14:19 DORA 07/21/20 14:14 Wound Center Nurse 2 #5 right hallux -Time 14:18 -Correct Patient Yes -Correct Side, Site, Position Yes -Correct Procedure Yes -Procedure Performed Yes -Type of Procedure Debridement -Clinical Debridement Subcutaneous -Tissue Removed Subcutaneous -Post Debridement (cm) - Length 0.5 -Post Debridement (cm) - Width 0.3 -Post Debridement (cm) - Depth 0.2 -Total Square (Post) (cm) 0.15 -Area of Debridement (cm) - Length 0.5 -Area of Debridement (cm) - Width 0.3 -Total Square (Area) (cm) 0.15 -Tunneling No -Undermining/Tunneling No -Circular Undermining No -Wound/Ulcer Outcome Not Healed -Ulcer Cleansing Rinsed/ Irrigated with Saline -Foul Odor after Cleansing No -Bioengineered Tissue No -Bleeding Controlled with Pressure -Offloading Yes -Type of Offloading Surgical Shoe -Debridement - Subq, 20sq cm Yes Pain Scale: 0-10 Numeric Is Patient Pain Free? Yes Wound debrided: medial forefoot Laterality: Right Wound Grade/Stage: grade 2 Type of Debridement: Excisional debridement Anesthesia Used: 5% Lidocaine Gel Depth: in the subcutaneous layer Percentage of wound debrided: 100 Instrument Used: #15 blade Tissue Removed: fibrous, devitalized subcutaneous, biofilm, slough Severity: Fat Layer Exposed Amount of bleeding with debridement: Mild Bleeding Controlled with: Pressure Patient tolerated procedure well Assessment/Plan Assessment: Right foot ulcer with muscle and capsular tissue exposed previously-returned. diabetes with neuropathy. vascular disease. malnutrition Plan: I reviewed and discussed this case with the patient. Debridement was performed as noted in the clinical panel. He was reassured no local signs of infection are noted today. He was [facility] This will help reduce bioburden which may be delaying the healing process. Advanced wound healing product was previously applied in a serial manner including epi-fix. He already has a surgical shoe and proper use of straps to avoid direct pressure on the site were reviewed again this afternoon. His x-rays were reviewed previously at the foot and ankle center which did not demonstrate any osseous destruction, foreign body, or soft tissue emphysema. Lab work was reviewed after clinic with a white blood cell count of 8.6, C-reactive protein of 17, and sedimentation rate of 70. Trends will be monitored and this demonstrates an inflammatory process is in place and suggests her supports of malnutrition as well. No other gross abnormalities were noted. There is no systemic or lesley local signs of infection however the devitalized tissue is a concern. This to be monitored closely. It is also noted he has a history of vascular disease with occlusive disease identified even with his updated noninvasive vascular studies performed in early September 2019. Arterial intervention is not planned at this time. He also has venous disease and has started undergoing intervention with Dr. Calvillo for this condition. This is going well and he has reduction in leg edema. To follow-up with the wound healing center in 2 weeks or call sooner if he has any questions, concerns, or deterioration in status or development of infection. I answered his questions.
[2020-08-04 13:56] VITALS: BP 150/96; PULSE 74; RESP 22; TEMP 36.2; BMI 32.8
--- NOTE | 2020-08-04 21:19 | PN.PCM_ITS ---
(1) Ulcer of right foot with fat layer exposed Status: Chronic Code(s): L97.512 - Non-pressure chronic ulcer of other part of right foot with fat layer exposed (2) Chronic kidney disease, stage 3 Status: Chronic Code(s): N18.3 - Chronic kidney disease, stage 3 (moderate) (3) Delayed wound healing Status: Chronic Code(s): T14.8 - Other injury of unspecified body region (4) Malnutrition Status: Chronic Code(s): E46 - Unspecified protein-calorie malnutrition (5) Peripheral vascular occlusive disease Status: Chronic Code(s): I73.9 - Peripheral vascular disease, unspecified (6) Type 2 diabetes mellitus with diabetic polyneuropathy Status: Chronic Code(s): E11.42 - Type 2 diabetes mellitus with diabetic polyneuropathy Type of Wound Date of Service: 08/04/20 Chief Complaint: right foot ulcer History of Wound: This 75-year-old male follows up for right foot ulcer and his bunion site. He denies fevers, chills, nausea, vomiting, diarrhea, loss of appetite. He denies drainage or redness. He has been undergoing limb venous intervention with Dr. Calvillo. He denies redness or odor. He has completed a course of advanced wound healing products including epi-cord and epi-fix. He has been performing dressing changes with Dakin's wet-to-dry dressing and offload with a surgical shoe. Progress of Wound: Stable - Physical Exam Vital Signs Temp Pulse Resp BP 97.1 F L 74 22 H 150/96 H 08/04/20 13:56 08/04/20 13:56 08/04/20 13:56 08/04/20 13:56 General: Alert, Oriented x3, Cooperative, No apparent distress HEENT: Atraumatic Extremities: Capillary Refill Less than 3 Seconds, No Calf Tenderness, Diminished Peripheral Pulses Skin: Ulcer/ Wound - No purulence, erythema, string, odor, infection. Adjacent skin is hairless and atrophic Wound Measurements and Assessment WC - Nurse 1 - General Ulcer Measurement Start: 07/21/20 14:00 Freq: Status: Active Protocol: Activity Type Activity Date Activity User E-Sign Co-Sign Detail Recorded Client Recorded Date Recorded By Document 08/04/20 13:56 DL [id number] 08/04/20 14:01 DL 08/04/20 13:56 Wound Center Nurse 1 [Ulcer Assessment] #5 right hallux -Current Size (cm) - Length 0.6 -Current Size (cm) - Width 0.3 -Current Size (cm) - Depth 0.2 -Total Square Cm 0.18 -Photo Taken No -Exudate Amt None Present -Wound Margin Thickened -Granulation Amt Small (1-33%) -Granulation Quality Pale -Necrosis Amt Small (1-33%) -Necrotic Tissue Type Adherent Slough -Structure Exposed N/A -Texture (Anna-wound Skin Appearance) Scarring -Moisture (Anna-wound Skin Appearance Dry/Scaly ) -Color (Anna-wound Skin Appearance) Hemosiderin Staining -Temperature (Anna-wound Skin No Abnormality Appearance) (Pt Warm) -Tenderness on Palpation (Anna-wound No Skin Appearance) -Ulcer Cleansing Rinsed/ Irrigated with Saline -Foul Odor after Cleansing No -Anesthetic Used 4% Lidocaine Solution WC - Nurse 2 - General Ulcer CM Notes Start: 07/21/20 14:00 Freq: Status: Active Protocol: Activity Type Activity Date Activity User E-Sign Co-Sign Detail Recorded Client Recorded Date Recorded By Document 08/04/20 14:29 JF [id number] 08/04/20 14:31 JF 08/04/20 14:29 Wound Center Nurse 2 [Procedure/Treatment] -Time 14:30 -Correct Patient Yes -Correct Side, Site, Position Yes -Correct Procedure Yes -Procedure Performed Yes -Type of Procedure Debridement -Clinical Debridement Subcutaneous -Tissue Removed Subcutaneous -Post Debridement (cm) - Length 0.6 -Post Debridement (cm) - Width 0.4 -Post Debridement (cm) - Depth 0.2 -Total Square (Post) (cm) 0.24 -Area of Debridement (cm) - Length 0.6 -Area of Debridement (cm) - Width 0.4 -Total Square (Area) (cm) 0.24 -Tunneling No -Undermining/Tunneling No -Circular Undermining No -Wound/Ulcer Outcome Not Healed -Ulcer Cleansing Rinsed/ Irrigated with Saline -Foul Odor after Cleansing No -Bioengineered Tissue No -Bleeding Controlled with Pressure -Offloading Yes -Type of Offloading Surgical Shoe -Treatment Response Procedure Tolerated Well -Debridement - Subq, 1st 20sq cm Yes [See Physician Procedure note for Specifics] Pain Scale: 0-10 Numeric [Pain] -Is Patient Pain Free? Yes - Nurse 3 - General Ulcer D/C NN Start: 07/21/20 14:00 Freq: Status: Active Protocol: Activity Type Activity Date Activity User E-Sign Co-Sign Detail Recorded Client Recorded Date Recorded By Document 08/04/20 14:47 [facility] [id number] 08/04/20 14:47 [facility] 08/04/20 14:47 Wound Care Nurse 3 [Wound Dressing] #5 right hallux -Ulcer Cleansing Rinsed/ Irrigated with Saline -Foul Odor after Cleansing No -Primary Dressing Applied Other -Other Dressing hydrogel -Primary Dressing Covered/Secured Dry Gauze & with Roll Gauze, Secured with Tape [Post Procedure Tolerated] -Treatment Response Procedure Tolerated Well Pain Scale: 0-10 Numeric [Pain] -Is Patient Pain Free? Yes - Visit Discharge [Visit Discharge Information] -Discharge Condition Stable -Ambulatory Status Ambulatory,Cane -Transportation Private Auto -Accompanied by yany in law Musculoskeletal: Muscle Wasting, Tenderness Neurological: - - Lack of normal epicritic sensation light touch is consistent with neuropathy status Psych/Mental Status: Normal Affect, Appropriate Debridement Note Post-Debridement Measurements/Treatment - Nurse 2 - General Ulcer CM Notes Start: 07/21/20 14:00 Freq: Status: Active Protocol: Activity Type Activity Date Activity User E-Sign Co-Sign Detail Recorded Client Recorded Date Recorded By Document 07/21/20 14:14 [id number] 07/21/20 14:19 Document 08/04/20 14:29 [id number] 08/04/20 14:31 07/21/20 08/04/20 14:14 14:29 Wound Center Nurse 2 #5 right hallux -Time 14:18 14:30 -Correct Patient Yes Yes -Correct Side, Site, Position Yes Yes -Correct Procedure Yes Yes -Procedure Performed Yes Yes -Type of Procedure Debridement Debridement -Clinical Debridement Subcutaneous Subcutaneous -Tissue Removed Subcutaneous Subcutaneous -Post Debridement (cm) - Length 0.5 0.6 -Post Debridement (cm) - Width 0.3 0.4 -Post Debridement (cm) - Depth 0.2 0.2 -Total Square (Post) (cm) 0.15 0.24 -Area of Debridement (cm) - Length 0.5 0.6 -Area of Debridement (cm) - Width 0.3 0.4 -Total Square (Area) (cm) 0.15 0.24 -Tunneling No No -Undermining/Tunneling No No -Circular Undermining No No -Wound/Ulcer Outcome Not Healed Not Healed -Ulcer Cleansing Rinsed/ Rinsed/ Irrigated with Irrigated with Saline Saline -Foul Odor after Cleansing No No -Bioengineered Tissue No No -Bleeding Controlled with Pressure Pressure -Offloading Yes Yes -Type of Offloading Surgical Shoe Surgical Shoe -Treatment Response Procedure Tolerated Well -Debridement - Subq, 1st 20sq cm Yes Yes Pain Scale: 0-10 Numeric Is Patient Pain Free? Yes Yes - Nurse 3 - General Ulcer D/C NN Start: 07/21/20 14:00 Freq: Status: Active Protocol: Activity Type Activity Date Activity User E-Sign Co-Sign Detail Recorded Client Recorded Date Recorded By Document 08/04/20 14:47 [facility] [id number] 08/04/20 14:47 [facility] 08/04/20 14:47 Wound Care Nurse 3 #5 right hallux -Ulcer Cleansing Rinsed/ Irrigated with Saline -Foul Odor after Cleansing No -Primary Dressing Applied Other -Other Dressing hydrogel -Primary Dressing Covered/Secured with Dry Gauze & Roll Gauze, Secured with Tape Treatment Response Procedure Tolerated Well Pain Scale: 0-10 Numeric Is Patient Pain Free? Yes - Visit Discharge Discharge Condition Stable Ambulatory Status Ambulatory,Cane Transportation Private Auto Accompanied by yany in law Wound debrided: medial forefoot Laterality: Right Wound Grade/Stage: grade 1 (prior grade 2 that healed and now site has reopened) Type of Debridement: Excisional debridement Anesthesia Used: 5% Lidocaine Gel Depth: in the subcutaneous layer Percentage of wound debrided: 100 Instrument Used: #15 blade Tissue Removed: fibrous, devitalized subcutaneous, biofilm, slough Severity: Fat Layer Exposed Amount of bleeding with debridement: Mild Bleeding Controlled with: Pressure Patient tolerated procedure well Assessment/Plan Active Problems (Last Reviewed 06/28/20 @ 14:33 by Iker Rodriguez WEB DESIGN INSTRUCTOR, WEB DESIGN INSTRUCTOR-C) 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 diabetes with neuropathy. vascular disease. malnutrition Plan: I reviewed and discussed this case with the patient. Debridement was performed as noted in the clinical panel. He was reassured no local signs of infection are noted today. He was advised to change the dressing daily [employer]. This will help reduce bioburden which may be delaying the healing process. Advanced wound healing product was previously applied in a serial manner including epi-fix. He already has a surgical shoe and proper use of straps to avoid direct pressure on the site were reviewed again this afternoon. His x- rays were reviewed previously at the [facility] which did not demonstrate any osseous destruction, foreign body, or soft tissue emphysema. Lab work was reviewed after clinic with a white blood cell count of 8.6, C- reactive protein of 17, and sedimentation rate of 70. Trends will be monitored and this demonstrates an inflammatory process is in place and suggests her supports of malnutrition as well. No other gross abnormalities were noted. There is no systemic or lesley local signs of infection however the devitalized tissue is a concern. This to be monitored closely. It is also noted he has a history of vascular disease with occlusive disease identified even with his updated noninvasive vascular studies performed in early September 2019. Arterial intervention is not planned at this time. He also has venous disease and has started undergoing intervention with Dr. Calvillo for this condition. This is going well and he has reduction in leg edema. To follow-up with the wound healing center in 2 weeks or call sooner if he has any questions, concerns, or deterioration in status or development of infection. I answered his questions.
== END 2020-08-19 23:59 ==
LOC: WC 14:00
PROVIDERS: PCP Family Medicine; Visit Provider Podiatrist
DX: E11.621 Type 2 diabetes mellitus with foot ulcer (principal); E11.22 Type 2 diabetes mellitus with diabetic chronic kidney disease; E11.51 Type 2 diabetes mellitus with diabetic peripheral angiopathy without gangrene; N18.30 Chronic kidney disease, stage 3 unspecified; E11.42 Type 2 diabetes mellitus with diabetic polyneuropathy; L97.512 Non-pressure chronic ulcer of other part of right foot with fat layer exposed; R60.0 Localized edema
CPT/HCPCS: 11042

== ENCOUNTER 2020-09-15 14:00 | Outpatient (RCR) | payer MEDICARE, OTHER, SELFPAY ==
[2020-08-20 00:06] VITALS: BP 150/96; PULSE 74; RESP 22; TEMP 36.2
[2020-08-25 14:04] VITALS: BP 123/38; PULSE 58; RESP 18; TEMP 36.1; BMI 32.8
--- NOTE | 2020-08-25 15:21 | PCM.WC.PN ---
(1) Ulcer of left lower extremity with fat layer exposed Status: Chronic Code(s): L97.922 - Non-pressure chronic ulcer of unspecified part of left lower leg with fat layer exposed (2) Peripheral vascular occlusive disease Status: Chronic Code(s): I73.9 - Peripheral vascular disease, unspecified (3) Chronic kidney disease, stage 3 Status: Chronic Code(s): N18.3 - Chronic kidney disease, stage 3 (moderate) (4) Type 2 diabetes mellitus with diabetic polyneuropathy Status: Chronic Code(s): E11.42 - Type 2 diabetes mellitus with diabetic polyneuropathy (5) Delayed wound healing Status: Chronic Code(s): T14.8 - Other injury of unspecified body region (6) Malnutrition Status: Chronic Code(s): E46 - Unspecified protein-calorie malnutrition Type of Wound Date of Service: 08/25/20 Chief Complaint: right foot ulcer History of Wound: This 75-year-old male follows up for right foot ulcer and his bunion site. He denies fevers, chills, nausea, vomiting, diarrhea, loss of appetite. He denies drainage or redness. He has completed prior limb venous intervention with Dr. Calvillo. He denies redness or odor. He has completed a course of advanced wound healing products including epi-cord and epi-fix. He has been performing dressing changes with hydrogel dressing and offload with a surgical shoe. He is with his family member today. Progress of Wound: Improving - Physical Exam Vital Signs Temp Pulse Resp BP 97 F L 58 L 18 123/38 H 08/25/20 14:04 08/25/20 14:04 08/25/20 14:04 08/25/20 14:04 General: Alert, Oriented x3, Cooperative, No apparent distress HEENT: Atraumatic Extremities: No cyanosis, No edema, Capillary Refill Less than 3 Seconds, No Calf Tenderness, Diminished Peripheral Pulses Skin: Ulcer/ Wound - No purulence, erythema, streaking, odor, infection, deep tissue exposure. Ulcer is more superficial and granular Wound Measurements and Assessment WC - Nurse 1 - General Ulcer Measurement Start: 08/25/20 14:04 Freq: Status: Active Protocol: Activity Type Activity Date Activity User E-Sign Co-Sign Detail Recorded Client Recorded Date Recorded By Document 08/25/20 14:04 [facility] [id number] 08/25/20 14:09 [facility] 08/25/20 14:04 Wound Center Nurse 1 [Ulcer Assessment] #5 right hallux -Combined with other wound No -Current Size (cm) - Length 0.1 -Current Size (cm) - Width 0.1 -Current Size (cm) - Depth 0.1 -Total Square Cm 0.01 -Photo Taken No -Epithelialization None Present -Tunneling No -Undermining/Tunneling No -Circular Undermining No -Exudate Amt None Present -Wound Margin Distinct, Outline Attached -Granulation Amt None Present (0 %) -Slough/Fibrin Yes -Necrosis Amt Large (67-100%) -Necrotic Tissue Type Adherent Slough -Texture (Anna-wound Skin Appearance) Assessed,Callus ,Scarring -Moisture (Anna-wound Skin Appearance Assessed ) -Color (Anna-wound Skin Appearance) Assessed -Temperature (Anna-wound Skin No Abnormality Appearance) (Pt Warm) -Tenderness on Palpation (Anna-wound No Skin Appearance) -Ulcer Cleansing Rinsed/ Irrigated with Saline -Foul Odor after Cleansing No -Anesthetic Used 5% Lidocaine Gel WC - Nurse 3 - General Ulcer D/C NN Start: 08/25/20 14:04 Freq: Status: Active Protocol: Activity Type Activity Date Activity User E-Sign Co-Sign Detail Recorded Client Recorded Date Recorded By Document 08/25/20 14:55 [facility] [id number] 08/25/20 14:55 [facility] 08/25/20 14:55 Wound Care Nurse 3 [Wound Dressing] -Ulcer Cleansing Rinsed/ Irrigated with Saline -Foul Odor after Cleansing No -Primary Dressing Applied Other -Other Dressing hydrogel -Primary Dressing Covered/Secured Dry Gauze & with Roll Gauze, Secured with Tape [Post Procedure Tolerated] -Treatment Response Procedure Tolerated Well Pain Scale: 0-10 Numeric [Pain] -Is Patient Pain Free? Yes WC - Visit Discharge [Visit Discharge Information] -Discharge Condition Stable -Ambulatory Status Ambulatory,Cane -Transportation Private Auto -Accompanied by yany in law Musculoskeletal: Muscle Wasting Neurological: - - Lack of full epicritic sensation light touch Psych/Mental Status: Normal Affect, Appropriate Debridement Note Post-Debridement Measurements/Treatment WC - Nurse 3 - General Ulcer D/C NN Start: 08/25/20 14:04 Freq: Status: Active Protocol: Activity Type Activity Date Activity User E-Sign Co-Sign Detail Recorded Client Recorded Date Recorded By Document 08/25/20 14:55 [facility] [id number] 08/25/20 14:55 [facility] 08/25/20 14:55 Wound Care Nurse 3 #5 right hallux -Ulcer Cleansing Rinsed/ Irrigated with Saline -Foul Odor after Cleansing No -Primary Dressing Applied Other -Other Dressing hydrogel -Primary Dressing Covered/Secured with Dry Gauze & Roll Gauze, Secured with Tape Treatment Response Procedure Tolerated Well Pain Scale: 0-10 Numeric Is Patient Pain Free? Yes WC - Visit Discharge Discharge Condition Stable Ambulatory Status Ambulatory,Cane Transportation Private Auto Accompanied by yany in law Wound debrided: medial forefoot Laterality: Right - g Wound Grade/Stage: grade 1 Type of Debridement: Excisional debridement Anesthesia Used: 5% Lidocaine Gel Depth: in the subcutaneous layer Percentage of wound debrided: 100 Instrument Used: #15 blade Tissue Removed: fibrous, devitalized subcutaneous, biofilm, slough Severity: Fat Layer Exposed Amount of bleeding with debridement: Mild Bleeding Controlled with: Pressure Patient tolerated procedure well Assessment/Plan Active Problems (Last Reviewed 06/28/20 @ 14:33 by Iker Rodriguez HIV COUNSELOR, HIV COUNSELOR-C) Ulcer of left lower extremity with fat layer exposed (Chronic) Peripheral vascular occlusive disease (Chronic) Chronic kidney disease, stage 3 (Chronic) Type 2 diabetes mellitus with diabetic polyneuropathy (Chronic) Delayed wound healing (Chronic) Malnutrition (Chronic) Assessment: Right foot ulcer with now with fat layer exposed. diabetes with neuropathy. vascular disease. malnutrition Plan: I reviewed and discussed this case with the patient. Debridement was performed as noted in the clinical panel. He was reassured no local signs of infection are noted today. He was advised to change the dressing daily hydrogel which he has been recently using at home. Advanced wound healing product was previously applied in a serial manner including epi-fix. He already has a surgical shoe and proper use of straps to avoid direct pressure on the site were reviewed again this afternoon. Lab work was reviewed previously with a white blood cell count of 8.6, C-reactive protein of 17, and sedimentation rate of 70. Trends will be monitored and this demonstrates an inflammatory process is in place and suggests her supports of malnutrition as well. No other gross abnormalities were noted. There is no systemic or lesley local signs of infection today and he was reassured of this. This to be monitored closely. It is also noted he has a history of vascular disease with occlusive disease identified even with his updated noninvasive vascular studies performed in early September 2019. Arterial intervention is not planned at this time. He also has venous disease and has started undergoing intervention with Dr. Calvillo for this condition. This is going well and he has reduction in leg edema. To follow-up with the wound healing center in 2 weeks or call sooner if he has any questions, concerns, or deterioration in status or development of infection. I answered his questions.
[2020-09-15 13:55] VITALS: BP 126/38; PULSE 65; TEMP 36.1; BMI 32.8
--- NOTE | 2020-09-15 22:46 | PN.PCM_ITS ---
(1) Peripheral vascular occlusive disease Status: Chronic Code(s): I73.9 - Peripheral vascular disease, unspecified (2) Chronic kidney disease, stage 3 Status: Chronic Code(s): N18.3 - Chronic kidney disease, stage 3 (moderate) (3) Type 2 diabetes mellitus with diabetic polyneuropathy Status: Chronic Code(s): E11.42 - Type 2 diabetes mellitus with diabetic polyneuropathy (4) Delayed wound healing Status: Chronic Code(s): T14.8 - Other injury of unspecified body region (5) Malnutrition Status: Chronic Code(s): E46 - Unspecified protein-calorie malnutrition (6) Ulcer of right foot with fat layer exposed Status: Chronic Code(s): L97.512 - Non-pressure chronic ulcer of other part of right foot with fat layer exposed Type of Wound Date of Service: 09/15/20 Chief Complaint: right foot ulcer History of Wound: This 75-year-old male follows up for right foot ulcer and his bunion site. He denies fevers, chills, nausea, vomiting, diarrhea, loss of appetite. He denies drainage or redness. He has completed prior limb venous intervention with Dr. Calvillo. He denies redness or odor. He has completed a course of advanced wound healing products including epi-cord and epi-fix. He has been performing dressing changes with hydrogel dressing and offload with a surgical shoe. He is with his family member today. Progress of Wound: Improving - Physical Exam Vital Signs Temp Pulse Resp BP 97.0 F L 65 18 126/38 H 09/15/20 13:55 09/15/20 13:55 08/25/20 14:04 09/15/20 13:55 General: Alert, Oriented x3, Cooperative HEENT: Atraumatic Extremities: No cyanosis, No edema, No Calf Tenderness, Diminished Peripheral Pulses Skin: Ulcer/ Wound - No purulence, erythema, streaking, odor, infection, deep tissue exposure or callus of significant degree noted. The adjacent skin is hairless and atrophic. Wound Measurements and Assessment WC - Nurse 1 - General Ulcer Measurement Start: 08/25/20 14:04 Freq: Status: Active Protocol: Activity Type Activity Date Activity User E-Sign Co-Sign Detail Recorded Client Recorded Date Recorded By Document 09/15/20 13:55 KR [id number] 09/15/20 14:02 KR 09/15/20 13:55 Wound Center Nurse 1 [Ulcer Assessment] #5 right hallux -Current Size (cm) - Length 0.6 -Current Size (cm) - Width 1 -Current Size (cm) - Depth 0.1 -Total Square Cm 0.6 -Exudate Amt None Present -Wound Margin Distinct, Outline Attached -Granulation Amt None Present (0 %) -Necrosis Amt Small (1-33%) -Necrotic Tissue Type Adherent Slough -Texture (Anna-wound Skin Appearance) Assessed, Scarring -Moisture (Anna-wound Skin Appearance Assessed,Dry/ ) Scaly -Color (Anna-wound Skin Appearance) No Abnormality, Assessed -Temperature (Anna-wound Skin No Abnormality Appearance) (Pt Warm) -Tenderness on Palpation (Anna-wound No Skin Appearance) -Ulcer Cleansing Rinsed/ Irrigated with Saline -Foul Odor after Cleansing No -Anesthetic Used 4% Lidocaine Solution WC - Nurse 2 - General Ulcer CM Notes Start: 08/25/20 14:04 Freq: Status: Active Protocol: Activity Type Activity Date Activity User E-Sign Co-Sign Detail Recorded Client Recorded Date Recorded By Document 09/15/20 14:41 [email or web address] [id number] 09/15/20 14:44 DORA 09/15/20 14:41 Wound Center Nurse 2 [Procedure/Treatment] -Time 14:41 -Correct Patient Yes -Correct Side, Site, Position Yes -Correct Procedure Yes -Procedure Performed Yes -Type of Procedure Debridement -Clinical Debridement Subcutaneous -Tissue Removed Subcutaneous -Post Debridement (cm) - Length 0.5 -Post Debridement (cm) - Width 0.2 -Post Debridement (cm) - Depth 0.1 -Total Square (Post) (cm) 0.10 -Area of Debridement (cm) - Length 0.5 -Area of Debridement (cm) - Width 0.2 -Total Square (Area) (cm) 0.10 -Tunneling No -Undermining/Tunneling No -Circular Undermining No -Wound/Ulcer Outcome Not Healed -Ulcer Cleansing Rinsed/ Irrigated with Saline -Foul Odor after Cleansing No -Bioengineered Tissue No -Bleeding Controlled with Pressure -Offloading Yes -Type of Offloading Surgical Shoe -Treatment Response Procedure Tolerated Well -Debridement - Subq, 1st 20sq cm Yes [See Physician Procedure note for Specifics] Pain Scale: 0-10 Numeric [Pain] -Is Patient Pain Free? Yes - Nurse 3 - General Ulcer D/C NN Start: 08/25/20 14:04 Freq: Status: Active Protocol: Activity Type Activity Date Activity User E-Sign Co-Sign Detail Recorded Client Recorded Date Recorded By Document 09/15/20 14:48 [id number] 09/15/20 14:50 09/15/20 14:48 Wound Care Nurse 3 [Wound Dressing] #5 right hallux -Ulcer Cleansing Rinsed/ Irrigated with Saline -Foul Odor after Cleansing No -Primary Dressing Applied C Hydrogel ($) -Primary Dressing Covered/Secured Dry Gauze, with Secured with Tape Pain Scale: 0-10 Numeric [Pain] -Is Patient Pain Free? Yes - Visit Discharge [Visit Discharge Information] -Discharge Condition Stable -Ambulatory Status Ambulatory,Cane -Transportation Private Auto -Medication Reconcilliation completed Yes & provided to patient/care provider -Clinical Summary of Care Provided Yes Musculoskeletal: No Tenderness to Palpation of Joints or Extremities, Muscle Wasting Neurological: - - Lack of normal epicritic sensation light touch is consistent with neuropathy status Psych/Mental Status: Normal Affect, Appropriate Debridement Note Post-Debridement Measurements/Treatment - Nurse 2 - General Ulcer CM Notes Start: 08/25/20 14:04 Freq: Status: Active Protocol: Activity Type Activity Date Activity User E-Sign Co-Sign Detail Recorded Client Recorded Date Recorded By Document 08/25/20 16:26 [id number] 08/25/20 16:28 Document 09/15/20 14:41 [id number] 09/15/20 14:44 08/25/20 09/15/20 16:26 14:41 Wound Center Nurse 2 #5 right hallux -Time 14:43 14:41 -Correct Patient Yes Yes -Correct Side, Site, Position Yes Yes -Correct Procedure Yes Yes -Procedure Performed Yes Yes -Type of Procedure Debridement Debridement -Clinical Debridement Subcutaneous Subcutaneous -Tissue Removed Subcutaneous Subcutaneous -Post Debridement (cm) - Length 0.7 0.5 -Post Debridement (cm) - Width 0.2 0.2 -Post Debridement (cm) - Depth 0.1 0.1 -Total Square (Post) (cm) 0.14 0.10 -Area of Debridement (cm) - Length 0.7 0.5 -Area of Debridement (cm) - Width 0.2 0.2 -Total Square (Area) (cm) 0.14 0.10 -Tunneling No No -Undermining/Tunneling No No -Circular Undermining No No -Wound/Ulcer Outcome Not Healed Not Healed -Ulcer Cleansing Rinsed/ Rinsed/ Irrigated with Irrigated with Saline Saline -Foul Odor after Cleansing No No -Bioengineered Tissue No No -Bleeding Controlled with Pressure -Offloading Yes -Type of Offloading Surgical Shoe -Treatment Response Procedure Tolerated Well -Debridement - Subq, 1st 20sq cm Yes Yes Pain Scale: 0-10 Numeric Is Patient Pain Free? Yes Yes - Nurse 3 - General Ulcer D/C NN Start: 08/25/20 14:04 Freq: Status: Active Protocol: Activity Type Activity Date Activity User E-Sign Co-Sign Detail Recorded Client Recorded Date Recorded By Document 08/25/20 14:55 [facility] [id number] 08/25/20 14:55 [facility] Document 09/15/20 14:48 [id number] 09/15/20 14:50 08/25/20 09/15/20 14:55 14:48 Wound Care Nurse 3 #5 right hallux -Ulcer Cleansing Rinsed/ Rinsed/ Irrigated with Irrigated with Saline Saline -Foul Odor after Cleansing No No -Primary Dressing Applied Other C Hydrogel ($) -Other Dressing hydrogel -Primary Dressing Covered/Secured with Dry Gauze & Dry Gauze, Roll Gauze, Secured with Secured with Tape Tape Treatment Response Procedure Tolerated Well Pain Scale: 0-10 Numeric Is Patient Pain Free? Yes Yes - Visit Discharge Discharge Condition Stable Stable Ambulatory Status Ambulatory,Cane Ambulatory,Cane Transportation Private Auto Private Auto Accompanied by yany in law Medication Reconcilliation completed & Yes provided to patient/care provider Clinical Summary of Care Provided Yes Wound debrided: medial forefoot Laterality: Right Wound Grade/Stage: grade 1 Type of Debridement: Excisional debridement Anesthesia Used: 5% Lidocaine Gel Depth: in the subcutaneous layer Percentage of wound debrided: 100 Instrument Used: #15 blade Tissue Removed: fibrous, devitalized subcutaneous, biofilm, slough Severity: Fat Layer Exposed Amount of bleeding with debridement: Mild Bleeding Controlled with: Pressure Patient tolerated procedure well Assessment/Plan Active Problems (Last Reviewed 06/28/20 @ 14:33 by Iker Rodriguez CHEMIST HELPER, CHEMIST HELPER-C) Ulcer of left lower extremity with fat layer exposed (Chronic) Ulcer of right foot with fat layer exposed (Chronic) Peripheral vascular occlusive disease (Chronic) Chronic kidney disease, stage 3 (Chronic) Type 2 diabetes mellitus with diabetic polyneuropathy (Chronic) Delayed wound healing (Chronic) Malnutrition (Chronic) Assessment: Right foot ulcer with now with fat layer exposed. diabetes with neuropathy. vascular disease. malnutrition Plan: I reviewed and discussed this case with the patient. Debridement was performed as noted in the clinical panel. He was reassured no local signs of infection are noted today. He was advised to change the dressing daily hydrogel which he has been recently using at home. Advanced wound healing product was previously applied in a serial manner including epi-fix. His ulcer site subsequently healed and has reoccurred. He has ongoing healing delays. He already has a surgical shoe and proper use of straps to avoid direct pressure on the site were reviewed again this afternoon. Lab work was reviewed previously with a white blood cell count of 8.6, C-reactive protein of 17, and sedimentation rate of 70. Trends will be monitored and this demonstrates an inflammatory process is in place and suggests her supports of malnutrition as well. No other gross abnormalities were noted. There is no systemic or lesley local signs of infection today and he was reassured of this. This to be monitored closely. It is also noted he has a history of vascular disease with occlusive disease identified even with his updated noninvasive vascular studies performed in early September 2019. Arterial intervention is not planned at this time. He also has venous disease and has started undergoing intervention with Dr. Calvillo for this condition. This is going well and he has reduction in leg edema. To follow-up with the wound healing center in 2 to 3 weeks or call sooner if he has any questions, concerns, or deterioration in status or development of infection. I answered his questions. Note: [employer] speech recognition metal flooring installer software was used to create portions of this document. Sound-alike and misspelled words, as well as other metal flooring installer errors may be contained in the documentation.
== END 2020-09-19 23:59 ==
LOC: WC 14:00
PROVIDERS: PCP Family Medicine; Visit Provider Podiatrist
DX: E11.621 Type 2 diabetes mellitus with foot ulcer (principal); L97.512 Non-pressure chronic ulcer of other part of right foot with fat layer exposed; E11.622 Type 2 diabetes mellitus with other skin ulcer; L97.822 Non-pressure chronic ulcer of other part of left lower leg with fat layer exposed; E11.51 Type 2 diabetes mellitus with diabetic peripheral angiopathy without gangrene; E11.22 Type 2 diabetes mellitus with diabetic chronic kidney disease; N18.30 Chronic kidney disease, stage 3 unspecified; E11.42 Type 2 diabetes mellitus with diabetic polyneuropathy
CPT/HCPCS: 11042

== ENCOUNTER → 2020-09-24 14:39 | Outpatient (CLI) | payer MEDICARE, OTHER, SELFPAY ==
[2020-09-15 13:55] VITALS: BMI 32.8
[2020-09-24 14:47] LABS: Bacteria 0 SEEN /hpf (None Seen); Mucous, Urine 0 SEEN /hpf (<or=2+); Red Blood Cells-Urine 0 SEEN /hpf (0-5); Squamous Epithelial Cells - UA 0 SEEN /hpf (0-5); White Blood Cells 0 SEEN /hpf (0-5)
[2020-09-24 17:43] LABS: Absolute Lymphocyte Count 1.45 X10^3/uL (0.83-4.51); Absolute Neutrophil Count 5.4 X10^3/uL (2.0-7.7); Basophil# 0.05 X10^3/uL; Basophil% 0.6 % (0-1); Eosinophil# 0.35 X10^3/uL; Eosinophils% 4.3 % (0-5); Hematocrit 41.2 % (40-54); Hemoglobin 12.4 g/dL (13.0-16.5); Lymphocyte # 1.45 X10^3/ul (4.0); Lymphocyte % 17.9 % (19-41); Mean Corp Hgb Conc 30.1 g/dL (32-36); Mean Corpuscular Hgb 27.2 pg (27.0-32.0); Mean Corpuscular Volume 90.4 fL (80-94); Mean Platelet Vol. 11.1 fl (6.2-12.0); Monocyte# 0.81 X10^3/uL; NRBC Flagged by Analyzer 0 % (0-5); Neutrophil # 5.39 X10^3/uL (2.7-7.7); Neutrophil % 66.6 % (47-70); Platelet Count 165 K/mm3 (150-450); RBC Distribution Width CV 16.1 % (11.6-14.6); RBC Distribution Width SD 53.1 fl (35.1-43.9); Red Blood Count 4.56 M/mm3 (4.6-6.2); White Blood Count 8.1 K/mm3 (4.4-11.0)
[2020-09-24 17:52] LABS: Color, Urine Yellow (Yellow); Glucose, Dipstick Normal (Normal); Ketone-Dipstick Negative (Negative); Leukocyte Esterase-Dipstick Negative /ul (Negative); Nitrite-Dipstick Negative (Negative); Occult Blood-Urine Negative /ul (Negative); Protein-Dipstick 30 mg/dl (Negative); Specific Gravity, Urine 1.015 (1.002-1.030); Urine Bilirubin Dipstick Negative (Negative); Urine Clarity Clear (Clear); Urine Urobilinogen Normal (Normal); Urine pH 6.5 (5.0 - 8.0)
[2020-09-24 17:58] LABS: BNP,B-Type NATRIURETIC PEPTIDE 230.2 pg/mL (0-100)
[2020-09-24 18:02] LABS: Vitamin D,25 Hydroxy 38.8 ng/mL
[2020-09-24 18:03] LABS: ALB/GLOB Ratio 0.8 RATIO (0.9-2.4); AST(SGOT) 15 U/L (15-37); Alanine Aminotransfer ALT/SGPT 22 U/L (16-61); Albumin, Serum 3.7 g/dL (3.2-5.0); Alkaline Phosphatase 57 U/L (45-117); Anion Gap 5 (5-15); BUN 34 mg/dL (7-18); BUN/Creat Ratio 17.4 RATIO (10-20); Calcium,Total 9.5 mg/dL (8.5-10.1); Chloride 105 mmol/L (98-107); Creatinine, Serum 1.95 mg/dL (0.70-1.30); EST Glomerular Filtration Rate 36 mL/min (>60); Est Glom Filt Rate - Afr Amer 43 mL/min (>60); Globulin 4.4 g/dL (2.2-4.2); Glucose 106 mg/dL (74-106); Phosphorus 4.2 mg/dL (2.5-4.9); Potassium 4.3 mmol/L (3.5-5.1); Protein, Total 8.1 g/dL (6.4-8.2); Sodium Level 138 mmol/L (136-145)
[2020-09-24 18:09] LABS: Protein, Urine (Random) 42.3 mg/dL (<11.9); Protein:Creat Ratio 443 mg/g CRE (0-200)
[2020-09-24 18:24] LABS: Hemoglobin A1c 7.1 % (3.8-5.6)
[2020-09-27 09:31] LABS: PTHIN 85.6 pg/mL (18.4-80.1)
== END ==
PROVIDERS: PCP Family Medicine; Visit Provider Family Medicine
DX: E11.49 Type 2 diabetes mellitus with other diabetic neurological complication (principal); I51.9 Heart disease, unspecified; R06.00 Dyspnea, unspecified; N18.32 Chronic kidney disease, stage 3b
CPT/HCPCS: 36415; 80053; 81001; 82306; 82570; 83036; 83880; 83970; 84100; 84156; 85025

== ENCOUNTER 2020-10-13 14:00 | Outpatient (RCR) | payer MEDICARE, OTHER, SELFPAY ==
[2020-09-20 00:11] VITALS: BP 126/38; PULSE 65; RESP 18; TEMP 36.1
--- NOTE | 2020-10-13 | BON_PTH ---
PATIENT: PEDRO HILLMAN LOC: U#:[id number] AGE/SX: 75/M ROOM: RE10/13/[address]: Dr. Daly Luna DPM : 1945 BED: DIS: 10/17/2020 SPEC #: [id number] RECD: 10/13/20 15:42 STATUS: NOA REStephanie #: [id number] BERNIE: 10/13/20 00:[address]: Daly Luna DEPT: SURGICAL PATHOLOGY RECD BY: Jordin Maciel ENTERED: 10/14/20 07:35 SP TYPE: Bone OTHR DR: Dr. Lusi Johnson, DO Tissues: Bone of foot, NOS Procedures: Decalcification bone/plaque Surgery Specimen Level IV HEADER OPERATION: Right fifth toe bone biopsy PRE-OP DIAGNOSIS: Right fifth toe bone biopsy TISSUE SUBMITTED: Bone fifth toe MICROSCOPIC DIAGNOSIS Bone fifth toe, biopsy: A piece of bone with reactive changes, negative for acute osteomyelitis. SJ:rashel 10/18/2020 MICROSCOPIC DESCRIPTION Slides are reviewed. GROSS DESCRIPTION Received in fixative is one container labeled with the patient's name and designated right fifth toe. The specimen consists of a piece of indurated tissue/bone measuring in aggregate 0.3 x 0.2 x 0.1 cm. The entire specimen is submitted in one cassette after short decalcification. / NARCISA:rashel 10/14/20 TC:5 CPT: 74571, 10877
[2020-10-13 13:53] VITALS: BP 116/47; PULSE 70; RESP 18; TEMP 36.5; BMI 32.8
--- NOTE | 2020-10-13 15:07 | PN.PCM_ITS ---
(1) Ulcer of right foot with necrosis of bone Status: Acute Code(s): L97.514 - Non-pressure chronic ulcer of other part of right foot with necrosis of bone (2) Osteomyelitis of right foot Status: Suspected Code(s): M86.9 - Osteomyelitis, unspecified (3) Ulcer of right foot with fat layer exposed Status: Chronic Code(s): L97.512 - Non-pressure chronic ulcer of other part of right foot with fat layer exposed (4) Type 2 diabetes mellitus with diabetic polyneuropathy Status: Chronic Code(s): E11.42 - Type 2 diabetes mellitus with diabetic polyneuropathy (5) Delayed wound healing Status: Chronic Code(s): T14.8 - Other injury of unspecified body region (6) Malnutrition Status: Chronic Code(s): E46 - Unspecified protein-calorie malnutrition Type of Wound Date of Service: 10/13/20 Chief Complaint: right foot ulcers History of Wound: This 75-year-old male follows up for right foot ulcer and his bunion site. He thinks the site has healed today. He also has a newer ulcer within the past couple of weeks to the right fifth toe which he relates he has been also applying hydrogel and applies a gauze toe spacer. He denies redness or odor. He denies fevers, chills, nausea, vomiting, diarrhea, loss of appetite. He denies drainage or redness. He has completed prior limb venous intervention with Dr. Calvillo. He denies redness or odor. He has completed a course of advanced wound healing products including epi-cord and epi-fix. He has been performing dressing changes with hydrogel dressing and offload with a surgical shoe. He is with his family member today. Progress of Wound: Improving medial foot. Worsening status progression fifth toe - Physical Exam Vital Signs Temp Pulse Resp BP 97.7 F L 70 18 116/47 L 10/13/20 13:53 10/13/20 13:53 10/13/20 13:53 10/13/20 13:53 General: Alert, Oriented x3, Cooperative, No apparent distress HEENT: Atraumatic Extremities: No cyanosis, Capillary Refill Less than 3 Seconds, No Calf Tenderness, Diminished Peripheral Pulses, Edema - Mild, - - Lateral hallux deviation with prominent first metatarsal head right foot. Dorsal contraction of lesser toes in close approximation noted. The fifth toe abuts the fourth toe. Compartments soft to palpate right lower extremity without bogginess or fluctuance or skin tenting Skin: Ulcer/ Wound - Callus formation with scant skin discontinuity to medial forefoot. No purulence, erythema streaking or odor. The fifth toe also does not have any erythema streaking or purulence however there is probe to bone at this time and a small tavares of bone was removed from the wound bed and this was sent Wound Measurements and Assessment WC - Nurse 1 - General Ulcer Measurement Start: 10/13/20 13:52 Freq: Status: Active Protocol: Activity Type Activity Date Activity User E-Sign Co-Sign Detail Recorded Client Recorded Date Recorded By Document 10/13/20 13:53 ORESTES [id number] 10/13/20 14:03 DL 10/13/20 13:53 Wound Center Nurse 1 [Ulcer Assessment] #8 R 5th Toe -Current Size (cm) - Length 0.3 -Current Size (cm) - Width 0.3 -Current Size (cm) - Depth 0.2 -Total Square Cm 0.09 -Photo Taken Yes -Exudate Amt Small -Exudate Type Yellow/Green -Wound Margin Distinct, Outline Attached -Granulation Amt Small (1-33%) -Granulation Quality Mallory -Necrosis Amt Small (1-33%) -Necrotic Tissue Type Adherent Slough -Structure Exposed Bone -Texture (Anna-wound Skin Appearance) Scarring -Moisture (Anna-wound Skin Appearance No Abnormality ) -Color (Anna-wound Skin Appearance) Erythema -Temperature (Anna-wound Skin No Abnormality Appearance) (Pt Warm) -Tenderness on Palpation (Anna-wound No Skin Appearance) -Ulcer Cleansing Wound Cleanser -Foul Odor after Cleansing No -Anesthetic Used 4% Lidocaine Solution WC - Nurse 2 - General Ulcer CM Notes Start: 10/13/20 13:52 Freq: Status: Active Protocol: Activity Type Activity Date Activity User E-Sign Co-Sign Detail Recorded Client Recorded Date Recorded By Document 10/13/20 14:35 DORA [id number] 10/13/20 14:50 DORA 10/13/20 14:35 Wound Center Nurse 2 [Procedure/Treatment] -Time 14:35 -Correct Patient Yes -Correct Side, Site, Position Yes -Correct Procedure Yes -Procedure Performed Yes -Type of Procedure Debridement -Clinical Debridement Bone -Tissue Removed Tendon -Post Debridement (cm) - Length 0.3 -Post Debridement (cm) - Width 0.2 -Post Debridement (cm) - Depth 0.2 -Total Square (Post) (cm) 0.06 -Area of Debridement (cm) - Length 0.3 -Area of Debridement (cm) - Width 0.2 -Total Square (Area) (cm) 0.06 -Tunneling No -Undermining/Tunneling No -Circular Undermining No -Wound/Ulcer Outcome Not Healed -Ulcer Cleansing Rinsed/ Irrigated with Saline -Foul Odor after Cleansing No -Bioengineered Tissue No -Bleeding Controlled with Pressure -Offloading Yes -Type of Offloading Surgical Shoe -Treatment Response Procedure Tolerated Well -Debridement - Subq, 1st 20sq cm No -Debridement - Bone, 1st 20sq cm Yes #5 right hallux -Time 14:50 -Correct Patient Yes -Correct Side, Site, Position Yes -Correct Procedure Yes -Procedure Performed Yes -Type of Procedure Debridement -Clinical Debridement Subcutaneous -Tissue Removed Subcutaneous -Post Debridement (cm) - Length 0.3 -Post Debridement (cm) - Width 0.2 -Post Debridement (cm) - Depth 0.1 -Total Square (Post) (cm) 0.06 -Area of Debridement (cm) - Length 0.3 -Area of Debridement (cm) - Width 0.2 -Total Square (Area) (cm) 0.06 -Tunneling No -Undermining/Tunneling No -Circular Undermining No -Wound/Ulcer Outcome Not Healed -Ulcer Cleansing Rinsed/ Irrigated with Saline -Foul Odor after Cleansing No -Bioengineered Tissue No -Bleeding Controlled with Pressure -Offloading Yes -Type of Offloading Surgical Shoe -Treatment Response Procedure Tolerated Well -Debridement - Subq, 1st 20sq cm Yes [See Physician Procedure note for Specifics] Pain Scale: 0-10 Numeric [Pain] -Is Patient Pain Free? Yes WC - Nurse 3 - General Ulcer D/C NN Start: 10/13/20 13:52 Freq: Status: Active Protocol: Activity Type Activity Date Activity User E-Sign Co-Sign Detail Recorded Client Recorded Date Recorded By Document 10/13/20 14:59 DL [id number] 10/13/20 15:00 DL 10/13/20 14:59 Wound Care Nurse 3 [Wound Dressing] #8 R 5th Toe -Ulcer Cleansing Rinsed/ Irrigated with Saline -Foul Odor after Cleansing No -Primary Dressing Applied Silvercel -Primary Dressing Covered/Secured Dry Gauze & with Roll Gauze, Secured with Tape -Silvercel 1 #5 right hallux -Ulcer Cleansing Rinsed/ Irrigated with Saline -Foul Odor after Cleansing No -Primary Dressing Applied Silvercel -Primary Dressing Covered/Secured Dry Gauze & with Roll Gauze, Secured with Tape -Silvercel 0 [Post Procedure Tolerated] -Treatment Response Procedure Tolerated Well Pain Scale: 0-10 Numeric [Pain] -Is Patient Pain Free? Yes WC - Visit Discharge [Visit Discharge Information] -Discharge Condition Stable -Ambulatory Status Ambulatory,Cane -Transportation Private Auto -Accompanied by yany in law Musculoskeletal: No Tenderness to Palpation of Joints or Extremities, Muscle Wasting, - - Forefoot deformities noted Neurological: - - Lack of normal epicritic sensation light touch is consistent with neuropathy status Psych/Mental Status: Normal Affect, Appropriate Debridement Note Post-Debridement Measurements/Treatment WC - Nurse 2 - General Ulcer CM Notes Start: 10/13/20 13:52 Freq: Status: Active Protocol: Activity Type Activity Date Activity User E-Sign Co-Sign Detail Recorded Client Recorded Date Recorded By Document 10/13/20 14:35 DORA [id number] 10/13/20 14:50 DORA 10/13/20 14:35 Wound Center Nurse 2 #8 R 5th Toe -Time 14:35 -Correct Patient Yes -Correct Side, Site, Position Yes -Correct Procedure Yes -Procedure Performed Yes -Type of Procedure Debridement -Clinical Debridement Bone -Tissue Removed Tendon -Post Debridement (cm) - Length 0.3 -Post Debridement (cm) - Width 0.2 -Post Debridement (cm) - Depth 0.2 -Total Square (Post) (cm) 0.06 -Area of Debridement (cm) - Length 0.3 -Area of Debridement (cm) - Width 0.2 -Total Square (Area) (cm) 0.06 -Tunneling No -Undermining/Tunneling No -Circular Undermining No -Wound/Ulcer Outcome Not Healed -Ulcer Cleansing Rinsed/ Irrigated with Saline -Foul Odor after Cleansing No -Bioengineered Tissue No -Bleeding Controlled with Pressure -Offloading Yes -Type of Offloading Surgical Shoe -Treatment Response Procedure Tolerated Well -Debridement - Subq, 1st 20sq cm No -Debridement - Bone, 1st 20sq cm Yes #5 right hallux -Time 14:50 -Correct Patient Yes -Correct Side, Site, Position Yes -Correct Procedure Yes -Procedure Performed Yes -Type of Procedure Debridement -Clinical Debridement Subcutaneous -Tissue Removed Subcutaneous -Post Debridement (cm) - Length 0.3 -Post Debridement (cm) - Width 0.2 -Post Debridement (cm) - Depth 0.1 -Total Square (Post) (cm) 0.06 -Area of Debridement (cm) - Length 0.3 -Area of Debridement (cm) - Width 0.2 -Total Square (Area) (cm) 0.06 -Tunneling No -Undermining/Tunneling No -Circular Undermining No -Wound/Ulcer Outcome Not Healed -Ulcer Cleansing Rinsed/ Irrigated with Saline -Foul Odor after Cleansing No -Bioengineered Tissue No -Bleeding Controlled with Pressure -Offloading Yes -Type of Offloading Surgical Shoe -Treatment Response Procedure Tolerated Well -Debridement - Subq, 1st 20sq cm Yes Pain Scale: 0-10 Numeric Is Patient Pain Free? Yes - Nurse 3 - General Ulcer D/C NN Start: 10/13/20 13:52 Freq: Status: Active Protocol: Activity Type Activity Date Activity User E-Sign Co-Sign Detail Recorded Client Recorded Date Recorded By Document 10/13/20 14:59 DL [id number] 10/13/20 15:00 DL 10/13/20 14:59 Wound Care Nurse 3 #8 R 5th Toe -Ulcer Cleansing Rinsed/ Irrigated with Saline -Foul Odor after Cleansing No -Primary Dressing Applied Silvercel -Primary Dressing Covered/Secured with Dry Gauze & Roll Gauze, Secured with Tape -Silvercel 1 #5 right hallux -Ulcer Cleansing Rinsed/ Irrigated with Saline -Foul Odor after Cleansing No -Primary Dressing Applied Silvercel -Primary Dressing Covered/Secured with Dry Gauze & Roll Gauze, Secured with Tape -Silvercel 0 Treatment Response Procedure Tolerated Well Pain Scale: 0-10 Numeric Is Patient Pain Free? Yes - Visit Discharge Discharge Condition Stable Ambulatory Status Ambulatory,Cane Transportation Private Auto Accompanied by yany in law Wound debrided: medial forefoot Laterality: Right Wound Grade/Stage: grade 1 Type of Debridement: Selective debridement Anesthesia Used: 5% Lidocaine Gel Depth: Down to and including healthy tissue Percentage of wound debrided: 100 Instrument Used: #15 blade Tissue Removed: fibrous, devitalized subcutaneous, biofilm, slough, callous Severity: Limited To Skin Breakdown Amount of bleeding with debridement: None Bleeding Controlled with: Pressure Patient did not tolerate procedure well - Additional Wound Wound debrided: medial fifth toe Laterality: Right Wound Grade/Stage: grade 2 Type of Debridement: Excisional debridement Anesthesia Used: 4% Lidocaine Solution Depth: to bone Percentage of wound debrided: 100 Instrument Used: #15 blade, - - hemostat, nippers Tissue Removed: fibrous, devitalized subcutaneous and bone, biofilm, slough Severity: Necrosis of Bone Amount of bleeding with debridement: Mild Bleeding Controlled with: Pressure Patient tolerated procedure: Patient tolerated procedure well Assessment/Plan Active Problems (Last Reviewed 06/28/20 @ 14:33 by Iker Rodriguez [employer] SALES RECORD SUPERVISOR, [employer] AND SALES RECORD SUPERVISOR-C) Ulcer of right foot with fat layer exposed (Chronic) Ulcer of right foot with necrosis of bone (Acute) Type 2 diabetes mellitus with diabetic polyneuropathy (Chronic) Delayed wound healing (Chronic) Malnutrition (Chronic) Assessment: Right foot ulcer with now with fat layer exposed, medial forefoot. Right fifth toe ulcer with devitalized bone. diabetes with neuropathy. vascular disease. malnutrition Plan: I reviewed and discussed this case with the patient. Debridement was performed as noted in the clinical panel selectively medial forefoot and excisional bone fifth toe. He was reassured no local signs of infection are noted today however I am concerned about his status change the fifth toe. He was advised to change the dressing daily Dakin wet-to-dry dressing which he has been recently using at home. Advanced wound healing product was previously applied in a serial manner including epi-fix. His ulcer site subsequently healed and has reoccurred. He has ongoing healing delays. He already has a surgical shoe and proper use of straps to avoid direct pressure on the site were reviewed again this afternoon. During the bone debridement to the fifth toe this was sent to microbiology and pathology for further work-up of potential osteomyelitis reviewed. Infection or contamination. I also recommended a right foot x-ray. 3 nonweightbearing views were reviewed without any soft tissue emp hysema, foreign body. Vessel calcification is noted. There is also osseous destruction adjacent to the ulcer second which does course late with the procedural bone debridement site. Ordered labs and his C-reactive protein for, CBC was 8.5, ESR 26. Creatinine is also elevated at 1.81 with a GFR of 39. This will be taken into consideration of antibiotics. It is also noted he has a history of vascular disease with occlusive disease identified even with his updated noninvasive vascular studies performed in early September 2019. Arterial intervention is not planned at this time. He also has venous disease and has started undergoing intervention with Dr. Calvillo for this condition. This is going well and he has reduction in leg edema. To follow-up with the wound healing center in 1 week or call sooner if he has any questions, concerns, or deterioration in status or development of infection. I answered his questions. Note: [employer] speech recognition record label internship software was used to create portions of this document. Sound-alike and misspelled words, as well as other record label internship errors may be contained in the documentation. The medical decision making level is moderate based on data including at least three of the following: review of prior external notes, review of a test, ordering a test, assessment requiring an independent historian. The medical decision making level is moderate. There is noted moderate risk of morbidity after considering this treatment plan and diagnostic data. Considerations were given to prescription management, decisions regarding surgical options, or social determinants of health.
--- NOTE | 2020-10-13 15:30 | RAD_ITS ---
STUDY: X-RAY - RIGHT FOOT CLINICAL: Male, 75 years old. Also around the fifth toe. TECHNIQUE: 3 view(s) of the foot. COMPARISON: None. FINDINGS: Normal talus, calcaneus, and tarsal bones. Mild arthrosis of the visualized subtalar, talonavicular, calcaneocuboid, tarsal and tarsometatarsal articulations. Normal metatarsi. There is mild degenerative arthrosis of the metatarsophalangeal joint of the hallux . There is a bipartite tibial sesamoid. Normal interphalangeal joint of the great toe. Normal phalanges of the great toe. Normal second through fifth metatarsophalangeal joints. There is erosive changes about the medial aspect of the fifth middle phalanx. Otherwise normal interphalangeal joints and phalanges of the lesser toes. There is soft tissue prominence about the fifth digit. RAD/Foot min 3 Views IMPRESSION: Soft tissue swelling about the fifth toe with destructive changes of the middle phalanx suspicious for osteomyelitis. Electronically Signed: Sean Lujan DO at 23:05 EST Tel [phone], Service support ,
[2020-10-13 16:29] LABS: Absolute Lymphocyte Count 1.55 X10^3/uL (0.83-4.51); Absolute Neutrophil Count 5.6 X10^3/uL (2.0-7.7); Basophil# 0.06 X10^3/uL; Basophil% 0.7 % (0-1); Eosinophil# 0.38 X10^3/uL; Eosinophils% 4.5 % (0-5); Hematocrit 39.7 % (40-54); Lymphocyte # 1.55 X10^3/ul (4.0); Lymphocyte % 18.2 % (19-41); Mean Corp Hgb Conc 30.2 g/dL (32-36); Mean Corpuscular Hgb 27.5 pg (27.0-32.0); Mean Corpuscular Volume 90.8 fL (80-94); Monocyte% 10.6 % (0-10); NRBC Flagged by Analyzer 0 % (0-5); Neutrophil # 5.59 X10^3/uL (2.7-7.7); Neutrophil % 65.5 % (47-70); Platelet Count 154 K/mm3 (150-450); RBC Distribution Width SD 53.5 fl (35.1-43.9); Red Blood Count 4.37 M/mm3 (4.6-6.2); White Blood Count 8.5 K/mm3 (4.4-11.0)
[2020-10-13 16:45] LABS: Erythrocyte Sedimentation Rate 26 mm/hr (0-20)
[2020-10-13 17:01] LABS: ALB/GLOB Ratio 0.8 RATIO (0.9-2.4); AST(SGOT) 17 U/L (15-37); Alanine Aminotransfer ALT/SGPT 24 U/L (16-61); Albumin, Serum 3.7 g/dL (3.2-5.0); Alkaline Phosphatase 56 U/L (45-117); Anion Gap 4 (5-15); BUN 40 mg/dL (7-18); BUN/Creat Ratio 22.1 RATIO (10-20); Calcium,Total 8.9 mg/dL (8.5-10.1); Chloride 107 mmol/L (98-107); Creatinine, Serum 1.81 mg/dL (0.70-1.30); EST Glomerular Filtration Rate 39 mL/min (>60); Est Glom Filt Rate - Afr Amer 47 mL/min (>60); Estimated Creatinine Clearance 31.82 ml/min; Globulin 4.5 g/dL (2.2-4.2); Glucose 106 mg/dL (74-106); Potassium 4.8 mmol/L (3.5-5.1); Protein, Total 8.2 g/dL (6.4-8.2); Sodium Level 139 mmol/L (136-145)
== END 2020-10-17 23:59 ==
LOC: WC 14:00
PROVIDERS: PCP Family Medicine; Visit Provider Podiatrist
DX: E11.621 Type 2 diabetes mellitus with foot ulcer (principal); L97.511 Non-pressure chronic ulcer of other part of right foot limited to breakdown of skin; L97.514 Non-pressure chronic ulcer of other part of right foot with necrosis of bone; E11.42 Type 2 diabetes mellitus with diabetic polyneuropathy
CPT/HCPCS: 11042; 11044; 36415; 73630; 80053; 85025; 85652; 86140; 87015; 87070; 87075; 87077; 87101; 87116; 87186; 87205; 87206; 88304; 88305; 88311

== ENCOUNTER 2020-11-03 13:00 | Outpatient (RCR) | payer MEDICARE, OTHER, SELFPAY ==
[2020-10-18 00:11] VITALS: BP 116/47; PULSE 70; RESP 18; TEMP 36.5
[2020-10-20 13:47] VITALS: BP 148/119; PULSE 63; RESP 20; TEMP 36.2; BMI 32.8
--- NOTE | 2020-10-20 14:45 | PCM.WC.PN ---
(1) Ulcer of right foot with bone involvement without evidence of necrosis Status: Acute Code(s): L97.516 - 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 without evidence of necrosis (2) Hammer toe of right foot Status: Chronic Code(s): M20.41 - Other hammer toe(s) (acquired), right foot (3) Ulcer of right foot with fat layer exposed Status: Chronic Code(s): L97.512 - Non-pressure chronic ulcer of other part of right foot with fat layer exposed (4) Chronic kidney disease, stage 3 Status: Chronic Code(s): N18.3 - Chronic kidney disease, stage 3 (moderate) (5) Type 2 diabetes mellitus with diabetic polyneuropathy Status: Chronic Code(s): E11.42 - Type 2 diabetes mellitus with diabetic polyneuropathy (6) Osteomyelitis of ankle, left, acute Status: Ruled-out Code(s): M86.172 - Other acute osteomyelitis, left ankle and foot (7) Delayed wound healing Status: Chronic Code(s): T14.8 - Other injury of unspecified body region Type of Wound Date of Service: 10/20/20 Chief Complaint: right foot ulcers History of Wound: This 75-year-old male follows up for right foot ulcers to the forefoot and also the fifth toe. He uses a toe spacer. He had bone removed from his fifth toe last week and would like to go over the biopsy results and x-ray results. She also had lab work completed. He relates this site has significantly improved and thinks it may be healed. He denies redness or odor. He denies fevers, chills, nausea, vomiting, diarrhea, loss of appetite. He denies drainage or redness. He has completed prior limb venous intervention with Dr. Calvillo. He denies redness or odor. He has been performing dressing changes with Fanzter dressing and offload with a surgical shoe. He is with his family member today. Progress of Wound: Improving medial foot and fifth toe - Physical Exam Vital Signs Temp Pulse Resp BP 97.2 F L 63 20 H 148/119 H 10/20/20 13:47 10/20/20 13:47 10/20/20 13:47 10/20/20 13:47 General: Alert, Oriented x3, Cooperative, No apparent distress HEENT: Atraumatic Extremities: No cyanosis, No edema, Capillary Refill Less than 3 Seconds, No Calf Tenderness, Diminished Peripheral Pulses Skin: Ulcer/ Wound - No purulence, erythema, streaking, odor, infection. Reduced ulcer depth is noted to the medial forefoot. There is significant peripheral epithelialization and no longer any exposed or probe to bone on the fifth toe. His adjacent skin is hairless and atrophic. Wound Measurements and Assessment - Nurse 1 - General Ulcer Measurement Start: 10/20/20 13:46 Freq: Status: Active Protocol: Activity Type Activity Date Activity User E-Sign Co-Sign Detail Recorded Client Recorded Date Recorded By Document 10/20/20 13:47 [facility] [id number] 10/20/20 13:57 [facility] 10/20/20 13:47 Wound Center Nurse 1 [Ulcer Assessment] #8 R 5th Toe -Combined with other wound No -Current Size (cm) - Length 0.1 -Current Size (cm) - Width 0.1 -Current Size (cm) - Depth 0.1 -Total Square Cm 0.01 -Photo Taken No -Epithelialization Large 67-100% #5 right hallux -Combined with other wound No -Current Size (cm) - Length 0.4 -Current Size (cm) - Width 0.1 -Current Size (cm) - Depth 0.2 -Total Square Cm 0.04 -Photo Taken No -Epithelialization Small 1-33% -Tunneling No -Undermining/Tunneling No -Circular Undermining No -Exudate Amt Small -Exudate Type Serosanguineous -Wound Margin Distinct, Outline Attached -Granulation Amt Large (67-100%) -Slough/Fibrin Yes -Necrosis Amt Small (1-33%) -Necrotic Tissue Type Adherent Slough -Texture (Anna-wound Skin Appearance) Assessed,Callus ,Scarring -Moisture (Anna-wound Skin Appearance Assessed,Dry/ ) Scaly -Color (Anna-wound Skin Appearance) Assessed -Temperature (Anna-wound Skin No Abnormality Appearance) (Pt Warm) -Tenderness on Palpation (Anna-wound No Skin Appearance) -Ulcer Cleansing Rinsed/ Irrigated with Saline -Foul Odor after Cleansing No -Anesthetic Used 4% Lidocaine Solution WC - Nurse 2 - General Ulcer CM Notes Start: 10/20/20 13:46 Freq: Status: Active Protocol: Activity Type Activity Date Activity User E-Sign Co-Sign Detail Recorded Client Recorded Date Recorded By Document 10/20/20 14:12 DORA [id number] 10/20/20 14:15 DORA 10/20/20 14:12 Wound Center Nurse 2 [Procedure/Treatment] #8 R 5th Toe -Time 14:13 -Correct Patient Yes -Correct Side, Site, Position Yes -Correct Procedure Yes -Procedure Performed Yes -Type of Procedure Debridement -Clinical Debridement Subcutaneous -Tissue Removed Subcutaneous -Post Debridement (cm) - Length 0.1 -Post Debridement (cm) - Width 0.1 -Post Debridement (cm) - Depth 0.1 -Total Square (Post) (cm) 0.01 -Area of Debridement (cm) - Length 0.1 -Area of Debridement (cm) - Width 0.1 -Total Square (Area) (cm) 0.01 -Tunneling No -Undermining/Tunneling No -Circular Undermining No -Wound/Ulcer Outcome Not Healed -Ulcer Cleansing Rinsed/ Irrigated with Saline -Foul Odor after Cleansing No -Bioengineered Tissue No -Bleeding Controlled with Pressure -Offloading Yes -Type of Offloading Surgical Shoe -Treatment Response Procedure Tolerated Well -Debridement - Subq, 1st 20sq cm Yes #5 right hallux -Time 14:14 -Correct Patient Yes -Correct Side, Site, Position Yes -Correct Procedure Yes -Procedure Performed Yes -Type of Procedure Debridement -Clinical Debridement Subcutaneous -Tissue Removed Subcutaneous -Post Debridement (cm) - Length 0.4 -Post Debridement (cm) - Width 0.2 -Post Debridement (cm) - Depth 0.1 -Total Square (Post) (cm) 0.08 -Area of Debridement (cm) - Length 0.4 -Area of Debridement (cm) - Width 0.2 -Total Square (Area) (cm) 0.08 -Tunneling No -Undermining/Tunneling No -Circular Undermining No -Wound/Ulcer Outcome Not Healed -Ulcer Cleansing Rinsed/ Irrigated with Saline -Foul Odor after Cleansing No -Bioengineered Tissue No -Bleeding Controlled with Pressure -Offloading Yes -Type of Offloading Surgical Shoe -Treatment Response Procedure Tolerated Well -Debridement - Subq, 1st 20sq cm No [See Physician Procedure note for Specifics] Pain Scale: 0-10 Numeric [Pain] -Is Patient Pain Free? Yes WC - Nurse 3 - General Ulcer D/C NN Start: 10/20/20 13:46 Freq: Status: Active Protocol: Activity Type Activity Date Activity User E-Sign Co-Sign Detail Recorded Client Recorded Date Recorded By Document 10/20/20 14:30 DL [id number] 10/20/20 14:31 DL 10/20/20 14:30 Wound Care Nurse 3 [Wound Dressing] #8 R 5th Toe -Ulcer Cleansing Rinsed/ Irrigated with Saline -Foul Odor after Cleansing No -Primary Dressing Covered/Secured Dry Gauze, with Secured with Tape -Aquacel AG 2x2 1 #5 right hallux -Ulcer Cleansing Wound Cleanser -Foul Odor after Cleansing No -Other Dressing aquacel ag -Primary Dressing Covered/Secured Dry Gauze, with Secured with Tape [Post Procedure Tolerated] -Treatment Response Procedure Tolerated Well Pain Scale: 0-10 Numeric [Pain] -Is Patient Pain Free? Yes WC - Visit Discharge [Visit Discharge Information] -Discharge Condition Stable -Ambulatory Status Ambulatory -Transportation Private Auto Musculoskeletal: No Tenderness to Palpation of Joints or Extremities, Muscle Wasting, - - Varus rotation fifth toe abuts fourth toe. Compartments soft. No fluctuance or bogginess on palpation Neurological: - - Lack of epicritic sensation light touch is consistent with neuropathic status Psych/Mental Status: Normal Affect, Appropriate Debridement Note Post-Debridement Measurements/Treatment URBAN - Nurse 2 - General Ulcer CM Notes Start: 10/20/20 13:46 Freq: Status: Active Protocol: Activity Type Activity Date Activity User E-Sign Co-Sign Detail Recorded Client Recorded Date Recorded By Document 10/20/20 14:12 DORA [id number] 10/20/20 14:15 DORA 10/20/20 14:12 Wound Center Nurse 2 #8 R 5th Toe -Time 14:13 -Correct Patient Yes -Correct Side, Site, Position Yes -Correct Procedure Yes -Procedure Performed Yes -Type of Procedure Debridement -Clinical Debridement Subcutaneous -Tissue Removed Subcutaneous -Post Debridement (cm) - Length 0.1 -Post Debridement (cm) - Width 0.1 -Post Debridement (cm) - Depth 0.1 -Total Square (Post) (cm) 0.01 -Area of Debridement (cm) - Length 0.1 -Area of Debridement (cm) - Width 0.1 -Total Square (Area) (cm) 0.01 -Tunneling No -Undermining/Tunneling No -Circular Undermining No -Wound/Ulcer Outcome Not Healed -Ulcer Cleansing Rinsed/ Irrigated with Saline -Foul Odor after Cleansing No -Bioengineered Tissue No -Bleeding Controlled with Pressure -Offloading Yes -Type of Offloading Surgical Shoe -Treatment Response Procedure Tolerated Well -Debridement - Subq, 1st 20sq cm Yes #5 right hallux -Time 14:14 -Correct Patient Yes -Correct Side, Site, Position Yes -Correct Procedure Yes -Procedure Performed Yes -Type of Procedure Debridement -Clinical Debridement Subcutaneous -Tissue Removed Subcutaneous -Post Debridement (cm) - Length 0.4 -Post Debridement (cm) - Width 0.2 -Post Debridement (cm) - Depth 0.1 -Total Square (Post) (cm) 0.08 -Area of Debridement (cm) - Length 0.4 -Area of Debridement (cm) - Width 0.2 -Total Square (Area) (cm) 0.08 -Tunneling No -Undermining/Tunneling No -Circular Undermining No -Wound/Ulcer Outcome Not Healed -Ulcer Cleansing Rinsed/ Irrigated with Saline -Foul Odor after Cleansing No -Bioengineered Tissue No -Bleeding Controlled with Pressure -Offloading Yes -Type of Offloading Surgical Shoe -Treatment Response Procedure Tolerated Well -Debridement - Subq, 1st 20sq cm No Pain Scale: 0-10 Numeric Is Patient Pain Free? Yes - Nurse 3 - General Ulcer D/C NN Start: 10/20/20 13:46 Freq: Status: Active Protocol: Activity Type Activity Date Activity User E-Sign Co-Sign Detail Recorded Client Recorded Date Recorded By Document 10/20/20 14:30 DL [id number] 10/20/20 14:31 DL 10/20/20 14:30 Wound Care Nurse 3 #8 R 5th Toe -Ulcer Cleansing Rinsed/ Irrigated with Saline -Foul Odor after Cleansing No -Primary Dressing Covered/Secured with Dry Gauze, Secured with Tape -Aquacel AG 2x2 1 #5 right hallux -Ulcer Cleansing Wound Cleanser -Foul Odor after Cleansing No -Other Dressing aquacel ag -Primary Dressing Covered/Secured with Dry Gauze, Secured with Tape Treatment Response Procedure Tolerated Well Pain Scale: 0-10 Numeric Is Patient Pain Free? Yes - Visit Discharge Discharge Condition Stable Ambulatory Status Ambulatory Transportation Private Auto Wound debrided: medial fifth toe Laterality: Right Wound Grade/Stage: grade 2 Type of Debridement: Excisional debridement Anesthesia Used: 5% Lidocaine Gel Depth: in the subcutaneous layer Percentage of wound debrided: 100 Instrument Used: #15 blade Tissue Removed: fibrous, devitalized subcutaneous, biofilm, slough Severity: Fat Layer Exposed Amount of bleeding with debridement: Mild Bleeding Controlled with: Pressure Patient tolerated procedure well - Additional Wound Wound debrided: medial forefoot Laterality: Right Wound Grade/Stage: grade 1 Type of Debridement: Excisional debridement Anesthesia Used: 5% Lidocaine Gel Depth: in the subcutaneous layer Percentage of wound debrided: 100 Instrument Used: #15 blade Tissue Removed: fibrous, devitalized subcutaneous, biofilm, slough Severity: Fat Layer Exposed Amount of bleeding with debridement: Mild Bleeding Controlled with: Pressure Patient tolerated procedure: Patient tolerated procedure well Assessment/Plan Active Problems (Last Reviewed 06/28/20 @ 14:33 by Iker Rodriguez MANAGED CARE DIRECTOR, MANAGED CARE DIRECTOR-C) Ulcer of right foot with fat layer exposed (Chronic) Ulcer of right foot with bone involvement without evidence of necrosis (Acute) Hammer toe of right foot (Chronic) Chronic kidney disease, stage 3 (Chronic) Type 2 diabetes mellitus with diabetic polyneuropathy (Chronic) Delayed wound healing (Chronic) Assessment: Right foot ulcer with now with fat layer exposed, medial forefoot. Right fifth toe ulcer with prior bone exposed and debrided. diabetes with neuropathy. vascular disease. malnutrition Plan: I reviewed and discussed this case with the patient. Debridement was performed as noted in the clinical panel including medial forefoot and fifth toe. He was reassured no local signs of infection are noted today however I am concerned about his status change the fifth toe last week when bone was sent for cultures and pathological assessment. He was advised to change the dressing daily Dakin wet-to-dry dressing which he has been recently using at home. It is also ok to use silver product as they have occasionally been doing so. Advanced wound healing product was previously applied in a serial manner including epi-fix. His ulcer site subsequently healed and has reoccurred. He has ongoing healing delays. He already has a surgical shoe and proper use of straps to avoid direct pressure on the site were reviewed again this afternoon. His pathology results were negative for osteomyelitis. Cultures demonstrated rare Staph epidermidis growth which is likely contamination, and I would not attribute this to any deep space infection. I also recommended a right foot x-ray. 3 nonweightbearing views were reviewed without any soft tissue emphysema, foreign body. Vessel calcification is noted. Destruction of the fifth toe was noted and this is correlating with the fragment of bone that was excised. His labs were reviewed included a white blood cell count of 8.5, ESR, and C-reactive protein of 10.4 which does not support the diagnosis of infection or osteomyelitis. It is also noted that he had an A1c level of 7.1%. It is also noted he has a history of vascular disease with occlusive disease identified even with his updated noninvasive vascular studies performed in early September 2019. Arterial intervention is not planned at this time. He also has venous disease and has started undergoing intervention with Dr. Calvillo for this condition. This is going well and he has reduction in leg edema. To follow-up with the wound healing center in 2 weeks or call sooner if he has any questions, concerns, or deterioration in status or development of infection. I answered his questions. Note: [employer] speech recognition sales training coordinator software was used to create portions of this document. Sound-alike and misspelled words, as well as other sales training coordinator errors may be contained in the documentation. The medical decision making level is moderate based on data including at least three of the following: review of prior external notes, review of a test, ordering a test, assessment requiring an independent historian. The medical decision making level is moderate. There is noted moderate risk of morbidity after considering this treatment plan and diagnostic data. Considerations were given to prescription management, decisions regarding surgical options, or social determinants of health.
[2020-11-03 13:08] VITALS: BP 100/23; PULSE 62; TEMP 36.1; BMI 32.8
--- NOTE | 2020-11-03 15:37 | PCM.WC.PN ---
(1) Ulcer of right foot with bone involvement without evidence of necrosis Status: Resolved Code(s): L97.516 - 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 without evidence of necrosis (2) Hammer toe of right foot Status: Chronic Code(s): M20.41 - Other hammer toe(s) (acquired), right foot (3) Ulcer of right foot with fat layer exposed Status: Chronic Code(s): L97.512 - Non-pressure chronic ulcer of other part of right foot with fat layer exposed (4) Chronic kidney disease, stage 3 Status: Chronic Code(s): N18.3 - Chronic kidney disease, stage 3 (moderate) (5) Type 2 diabetes mellitus with diabetic polyneuropathy Status: Chronic Code(s): E11.42 - Type 2 diabetes mellitus with diabetic polyneuropathy (6) Delayed wound healing Status: Chronic Code(s): T14.8 - Other injury of unspecified body region Type of Wound Date of Service: 11/03/20 Chief Complaint: right foot ulcers History of Wound: This 75-year-old male follows up for right foot ulcers to the forefoot and also the fifth toe. He uses a toe spacer (gauze). He had bone removed from his fifth toe previously. He relates this site has significantly improved and thinks it may be healed. He denies redness or odor. He denies fevers, chills, nausea, vomiting, diarrhea, loss of appetite. He denies drainage or redness. He has completed prior limb venous intervention with Dr. Calvillo. He denies redness or odor. He has been performing dressing changes with [employer] ag dressing and offload with a surgical shoe. He is with his family member today. Progress of Wound: Improving medial foot (quality). healed fifth toe - Physical Exam Vital Signs Temp Pulse Resp BP 97.0 F L 62 20 H 100/23 L 11/03/20 13:08 11/03/20 13:08 10/20/20 13:47 11/03/20 13:08 General: Alert, Oriented x3, Cooperative, No apparent distress Extremities: No cyanosis, Capillary Refill Less than 3 Seconds, No Calf Tenderness, Diminished Peripheral Pulses Skin: Ulcer/ Wound - No purulence, erythema, streaking, odor, infection. Full epithelialization noted to medial fifth toe ulcer site. Skin discontinuity with granular base to medial forefoot without capsule or necrosis noted. Adjacent skin is hairless and atrophic Wound Measurements and Assessment WC - Nurse 1 - General Ulcer Measurement Start: 10/20/20 13:46 Freq: Status: Active Protocol: Activity Type Activity Date Activity User E-Sign Co-Sign Detail Recorded Client Recorded Date Recorded By Document 11/03/20 13:08 [email or web address] [id number] 11/03/20 13:10 EMMETT 11/03/20 13:08 Wound Center Nurse 1 [Ulcer Assessment] #8 R 5th Toe -Current Size (cm) - Length 0.1 -Current Size (cm) - Width 0.1 -Current Size (cm) - Depth 0.1 -Total Square Cm 0.01 -Exudate Amt None Present -Wound Margin Distinct, Outline Attached -Granulation Amt None Present (0 %) -Slough/Fibrin No -Texture (Anna-wound Skin Appearance) Assessed, Scarring -Moisture (Anna-wound Skin Appearance Assessed,Dry/ ) Scaly -Color (Anna-wound Skin Appearance) No Abnormality, Assessed -Temperature (Anna-wound Skin No Abnormality Appearance) (Pt Warm) -Tenderness on Palpation (Anna-wound No Skin Appearance) -Ulcer Cleansing Rinsed/ Irrigated with Saline -Foul Odor after Cleansing No -Anesthetic Used 4% Lidocaine Solution #5 right hallux -Current Size (cm) - Length 0.2 -Current Size (cm) - Width 0.8 -Current Size (cm) - Depth 0.2 -Total Square Cm 0.16 -Exudate Amt None Present -Wound Margin Distinct, Outline Attached -Granulation Amt None Present (0 %) -Slough/Fibrin No -Texture (Anna-wound Skin Appearance) Assessed, Scarring -Moisture (Anna-wound Skin Appearance Assessed,Dry/ ) Scaly -Temperature (Anna-wound Skin No Abnormality Appearance) (Pt Warm) -Tenderness on Palpation (Anna-wound No Skin Appearance) -Ulcer Cleansing Rinsed/ Irrigated with Saline -Foul Odor after Cleansing No -Anesthetic Used 4% Lidocaine Solution WC - Nurse 2 - General Ulcer CM Notes Start: 10/20/20 13:46 Freq: Status: Active Protocol: Activity Type Activity Date Activity User E-Sign Co-Sign Detail Recorded Client Recorded Date Recorded By Document 11/03/20 13:15 DORA [id number] 11/03/20 13:25 DORA 11/03/20 13:15 Wound Center Nurse 2 [Procedure/Treatment] #8 R 5th Toe -Correct Patient No -Correct Side, Site, Position No -Correct Procedure No -Procedure Performed No -Post Debridement (cm) - Length 0 -Post Debridement (cm) - Width 0 -Post Debridement (cm) - Depth 0 -Total Square (Post) (cm) 0 -Area of Debridement (cm) - Length 0 -Area of Debridement (cm) - Width 0 -Total Square (Area) (cm) 0 -Wound/Ulcer Outcome Healed- Epithelialized #5 right hallux -Time 13:17 -Correct Patient Yes -Correct Side, Site, Position Yes -Correct Procedure Yes -Procedure Performed Yes -Type of Procedure Debridement -Clinical Debridement Subcutaneous -Tissue Removed Subcutaneous -Post Debridement (cm) - Length 0.8 -Post Debridement (cm) - Width 0.4 -Post Debridement (cm) - Depth 0.2 -Total Square (Post) (cm) 0.32 -Area of Debridement (cm) - Length 0.8 -Area of Debridement (cm) - Width 0.4 -Total Square (Area) (cm) 0.32 -Tunneling No -Undermining/Tunneling No -Circular Undermining No -Wound/Ulcer Outcome Not Healed -Ulcer Cleansing Rinsed/ Irrigated with Saline -Foul Odor after Cleansing No -Bioengineered Tissue No -Bleeding Controlled with Pressure -Offloading No -Treatment Response Procedure Tolerated Well -Debridement - Subq, 1st 20sq cm Yes [See Physician Procedure note for Specifics] Pain Scale: 0-10 Numeric [Pain] -Is Patient Pain Free? Yes - Nurse 3 - General Ulcer D/C NN Start: 10/20/20 13:46 Freq: Status: Active Protocol: Activity Type Activity Date Activity User E-Sign Co-Sign Detail Recorded Client Recorded Date Recorded By Document 11/03/20 13:25 [id number] 11/03/20 13:25 11/03/20 13:25 Wound Care Nurse 3 [Wound Dressing] #5 right hallux -Ulcer Cleansing Rinsed/ Irrigated with Saline -Foul Odor after Cleansing No -Primary Dressing Applied Aquacel AG 2x2 -Primary Dressing Covered/Secured Dry Gauze, with Secured with Tape -Aquacel AG 2x2 1 Pain Scale: 0-10 Numeric [Pain] -Is Patient Pain Free? Yes WC - Visit Discharge [Visit Discharge Information] -Discharge Condition Stable -Ambulatory Status Ambulatory,Cane -Transportation Private Auto -Accompanied by DIL -Medication Reconcilliation completed Yes & provided to patient/care provider -Clinical Summary of Care Provided Yes Musculoskeletal: No Tenderness to Palpation of Joints or Extremities, Muscle Wasting, - - Dorsal contraction of lesser toes and varus rotation of fifth abuts fourth toe still Neurological: - - Lack of normal epicritic sensation consistent with neuropathic status Psych/Mental Status: Normal Affect, Appropriate Debridement Note Post-Debridement Measurements/Treatment - Nurse 2 - General Ulcer CM Notes Start: 10/20/20 13:46 Freq: Status: Active Protocol: Activity Type Activity Date Activity User E-Sign Co-Sign Detail Recorded Client Recorded Date Recorded By Document 10/20/20 14:12 DORA [id number] 10/20/20 14:15 Document 11/03/20 13:15 [id number] 11/03/20 13:25 10/20/20 11/03/20 14:12 13:15 Wound Center Nurse 2 #8 R 5th Toe -Time 14:13 -Correct Patient Yes No -Correct Side, Site, Position Yes No -Correct Procedure Yes No -Procedure Performed Yes No -Type of Procedure Debridement -Clinical Debridement Subcutaneous -Tissue Removed Subcutaneous -Post Debridement (cm) - Length 0.1 0 -Post Debridement (cm) - Width 0.1 0 -Post Debridement (cm) - Depth 0.1 0 -Total Square (Post) (cm) 0.01 0 -Area of Debridement (cm) - Length 0.1 0 -Area of Debridement (cm) - Width 0.1 0 -Total Square (Area) (cm) 0.01 0 -Tunneling No -Undermining/Tunneling No -Circular Undermining No -Wound/Ulcer Outcome Not Healed Healed- Epithelialized -Ulcer Cleansing Rinsed/ Irrigated with Saline -Foul Odor after Cleansing No -Bioengineered Tissue No -Bleeding Controlled with Pressure -Offloading Yes -Type of Offloading Surgical Shoe -Treatment Response Procedure Tolerated Well -Debridement - Subq, 1st 20sq cm Yes #5 right hallux -Time 14:14 13:17 -Correct Patient Yes Yes -Correct Side, Site, Position Yes Yes -Correct Procedure Yes Yes -Procedure Performed Yes Yes -Type of Procedure Debridement Debridement -Clinical Debridement Subcutaneous Subcutaneous -Tissue Removed Subcutaneous Subcutaneous -Post Debridement (cm) - Length 0.4 0.8 -Post Debridement (cm) - Width 0.2 0.4 -Post Debridement (cm) - Depth 0.1 0.2 -Total Square (Post) (cm) 0.08 0.32 -Area of Debridement (cm) - Length 0.4 0.8 -Area of Debridement (cm) - Width 0.2 0.4 -Total Square (Area) (cm) 0.08 0.32 -Tunneling No No -Undermining/Tunneling No No -Circular Undermining No No -Wound/Ulcer Outcome Not Healed Not Healed -Ulcer Cleansing Rinsed/ Rinsed/ Irrigated with Irrigated with Saline Saline -Foul Odor after Cleansing No No -Bioengineered Tissue No No -Bleeding Controlled with Pressure Pressure -Offloading Yes No -Type of Offloading Surgical Shoe -Treatment Response Procedure Procedure Tolerated Well Tolerated Well -Debridement - Subq, 1st 20sq cm No Yes Pain Scale: 0-10 Numeric Is Patient Pain Free? Yes Yes - Nurse 3 - General Ulcer D/C NN Start: 10/20/20 13:46 Freq: Status: Active Protocol: Activity Type Activity Date Activity User E-Sign Co-Sign Detail Recorded Client Recorded Date Recorded By Document 10/20/20 14:30 DL [id number] 10/20/20 14:31 DL Document 11/03/20 13:25 [id number] 11/03/20 13:25 10/20/20 11/03/20 14:30 13:25 Wound Care Nurse 3 #8 R 5th Toe -Ulcer Cleansing Rinsed/ Irrigated with Saline -Foul Odor after Cleansing No -Primary Dressing Covered/Secured with Dry Gauze, Secured with Tape -Aquacel AG 2x2 1 #5 right hallux -Ulcer Cleansing Wound Cleanser Rinsed/ Irrigated with Saline -Foul Odor after Cleansing No No -Primary Dressing Applied Aquacel AG 2x2 -Other Dressing aquacel ag -Primary Dressing Covered/Secured with Dry Gauze, Dry Gauze, Secured with Secured with Tape Tape -Aquacel AG 2x2 1 Treatment Response Procedure Tolerated Well Pain Scale: 0-10 Numeric Is Patient Pain Free? Yes Yes - Visit Discharge Discharge Condition Stable Stable Ambulatory Status Ambulatory Ambulatory,Cane Transportation Private Auto Private Auto Accompanied by LUPE Medication Reconcilliation completed & Yes provided to patient/care provider Clinical Summary of Care Provided Yes Wound debrided: medial forefoot Laterality: Right Wound Grade/Stage: grade 1 Type of Debridement: Excisional debridement Anesthesia Used: 5% Lidocaine Gel Depth: in the subcutaneous layer Percentage of wound debrided: 100 Instrument Used: #15 blade Tissue Removed: fibrous, devitalized subcutaneous, biofilm, slough Severity: Fat Layer Exposed Amount of bleeding with debridement: Mild Bleeding Controlled with: Pressure Patient tolerated procedure well Assessment/Plan Active Problems (Last Reviewed 06/28/20 @ 14:33 by Iker Rodriguez COMPUTER REPAIR TECHNICIAN, COMPUTER REPAIR TECHNICIAN-C) Ulcer of right foot with fat layer exposed (Chronic) Hammer toe of right foot (Chronic) Chronic kidney disease, stage 3 (Chronic) Type 2 diabetes mellitus with diabetic polyneuropathy (Chronic) Delayed wound healing (Chronic) Assessment: Right foot ulcer with now with fat layer exposed, medial forefoot. Right fifth toe ulcer with prior bone exposed healed today. diabetes with neuropathy. vascular disease. malnutrition Plan: I reviewed and discussed this case with the patient. Debridement was performed as noted in the clinical panel including medial forefoot. Full epithelialization is noted to the medial fifth toe and the site is healed. To continue He was advised to change the dressing daily Dakin wet-to-dry dressing which he has been recently using at home. It is also ok to use silver product as they have occasionally been doing so. Advanced wound healing product was previously applied in a serial manner including epi-fix. His ulcer site subsequently healed and has reoccurred. He has ongoing healing delays. He already has a surgical shoe and proper use of straps to avoid direct pressure on the site were reviewed again this afternoon. His pathology results were negative for osteomyelitis from the healed fifth toe ulcer site. Cultures demonstrated rare Staph epidermidis growth which is likely contamination, and I would not attribute this to any deep space infection. Previously, 3 nonweightbearing xray views were reviewed without any soft tissue emphysema, foreign body. Vessel calcification is noted. Destruction of the fifth toe was noted and this is correlating with the fragment of bone that was excised. His labs were reviewed included a white blood cell count of 8.5, ESR, and C-reactive protein of 10.4 which does not support the diagnosis of infection or osteomyelitis. It is also noted that he had an A1c level of 7.1%. It is also noted he has a history of vascular disease with occlusive disease identified even with his updated noninvasive vascular studies performed in early September 2019. Arterial intervention is not planned at this time. He also has venous disease and has started undergoing intervention with Dr. Calvillo for this condition. This is going well and he has reduction in leg edema. To follow-up with the wound healing center in 2 weeks or call sooner if he has any questions, concerns, or deterioration in status or development of infection. I answered his questions. Note: [employer] speech recognition maid cleaning cooking software was used to create portions of this document. Sound-alike and misspelled words, as well as other maid cleaning cooking errors may be contained in the documentation.
== END 2020-11-17 23:59 ==
LOC: WC 13:00
PROVIDERS: PCP Family Medicine; Visit Provider Podiatrist
DX: E11.621 Type 2 diabetes mellitus with foot ulcer (principal); M20.41 Other hammer toe(s) (acquired), right foot; E11.22 Type 2 diabetes mellitus with diabetic chronic kidney disease; N18.30 Chronic kidney disease, stage 3 unspecified; E11.42 Type 2 diabetes mellitus with diabetic polyneuropathy; L97.512 Non-pressure chronic ulcer of other part of right foot with fat layer exposed
CPT/HCPCS: 11042

== ENCOUNTER 2020-11-24 14:00 | Outpatient (RCR) | payer MEDICARE, OTHER, SELFPAY ==
[2020-11-18 00:23] VITALS: BP 100/23; PULSE 62; RESP 20; TEMP 36.1
[2020-11-24 14:11] VITALS: BP 106/30; PULSE 61; TEMP 36.1; BMI 32.8
--- NOTE | 2020-11-24 16:51 | PCM.WC.PN ---
(1) Ulcer of right foot with fat layer exposed Status: Resolved Code(s): L97.512 - Non-pressure chronic ulcer of other part of right foot with fat layer exposed (2) Type 2 diabetes mellitus with diabetic polyneuropathy Status: Chronic Code(s): E11.42 - Type 2 diabetes mellitus with diabetic polyneuropathy Type of Wound Date of Service: 11/24/20 Chief Complaint: right foot ulcer History of Wound: This 75-year-old male follows up for right foot ulcers to the forefoot and also the fifth toe. He uses a toe spacer (gauze). He had bone removed from his fifth toe previously. He relates this site has significantly improved and thinks it may be healed. He denies redness or odor. He denies fevers, chills, nausea, vomiting, diarrhea, loss of appetite. He denies drainage or redness. He has completed prior limb venous intervention with Dr. Calvillo. He denies redness or odor. He has been performing dressing changes with aquacell ag dressing and offload with a surgical shoe. He is with his family member today. Progress of Wound: Healed medial foot ulcer. healed fifth toe - Physical Exam Vital Signs Temp Pulse Resp BP 97.0 F L 61 20 H 106/30 L 11/24/20 14:11 11/24/20 14:11 11/18/20 00:23 11/24/20 14:11 General: Alert, Oriented x3, Cooperative, No apparent distress HEENT: Atraumatic Extremities: No cyanosis, No edema, Capillary Refill Less than 3 Seconds, No Calf Tenderness, Diminished Peripheral Pulses Skin: Ulcer/ Wound - No purulence, erythema, streaking, odor, infection. Full epithelialization is noted and the ulcer site is healed. His adjacent skin is hairless and atrophic. No maceration or necrosis Wound Measurements and Assessment WC - Nurse 1 - General Ulcer Measurement Start: 11/24/20 14:11 Freq: Status: Active Protocol: Activity Type Activity Date Activity User E-Sign Co-Sign Detail Recorded Client Recorded Date Recorded By Document 11/24/20 14:11 [email or web address] [id number] 11/24/20 14:16 EMMETT 11/24/20 14:11 Wound Center Nurse 1 [Ulcer Assessment] #5 right hallux -Combined with other wound No -Current Size (cm) - Length 0.6 -Current Size (cm) - Width 0.8 -Current Size (cm) - Depth 0.1 -Total Square Cm 0.48 -Tunneling No -Undermining/Tunneling No -Circular Undermining No -Exudate Amt Small -Exudate Type Serosanguineous -Wound Margin Flat & Intact -Granulation Amt Small (1-33%) -Granulation Quality [place] -Slough/Fibrin Yes -Necrosis Amt Large (67-100%) -Necrotic Tissue Type Adherent Slough -Structure Exposed N/A -Texture (Anna-wound Skin Appearance) Assessed -Moisture (Anna-wound Skin Appearance Assessed ) -Color (Anna-wound Skin Appearance) Assessed -Temperature (Anna-wound Skin No Abnormality Appearance) (Pt Warm) -Tenderness on Palpation (Anna-wound No Skin Appearance) -Ulcer Cleansing Rinsed/ Irrigated with Saline -Foul Odor after Cleansing No -Anesthetic Used 4% Lidocaine Solution - Nurse 2 - General Ulcer CM Notes Start: 11/24/20 14:11 Freq: Status: Active Protocol: Activity Type Activity Date Activity User E-Sign Co-Sign Detail Recorded Client Recorded Date Recorded By Document 11/24/20 14:22 [id number] 11/24/20 14:28 11/24/20 14:22 Wound Center Nurse 2 [Procedure/Treatment] -Correct Patient No -Correct Side, Site, Position No -Correct Procedure No -Procedure Performed No -Post Debridement (cm) - Length 0 -Post Debridement (cm) - Width 0 -Post Debridement (cm) - Depth 0 -Total Square (Post) (cm) 0 -Area of Debridement (cm) - Length 0 -Area of Debridement (cm) - Width 0 -Total Square (Area) (cm) 0 -Wound/Ulcer Outcome Healed- Epithelialized [See Physician Procedure note for Specifics] - Nurse 3 - General Ulcer D/C NN Start: 11/24/20 14:11 Freq: Status: Active Protocol: Activity Type Activity Date Activity User E-Sign Co-Sign Detail Recorded Client Recorded Date Recorded By Document 11/24/20 14:29 [id number] 11/24/20 14:29 11/24/20 14:29 Pain Scale: 0-10 Numeric [Pain] -Is Patient Pain Free? Yes WC - Visit Discharge [Visit Discharge Information] -Discharge Condition Stable -Ambulatory Status Ambulatory,Cane -Transportation Private Auto -Accompanied by daughter in law -Medication Reconcilliation completed Yes & provided to patient/care provider -Clinical Summary of Care Provided Yes Musculoskeletal: Muscle Wasting, - - Dorsal contraction of lesser toes Neurological: - - Lack of normal epicritic sensation consistent with neuropathic status Psych/Mental Status: Normal Affect, Appropriate Debridement Note Post-Debridement Measurements/Treatment - Nurse 2 - General Ulcer CM Notes Start: 11/24/20 14:11 Freq: Status: Active Protocol: Activity Type Activity Date Activity User E-Sign Co-Sign Detail Recorded Client Recorded Date Recorded By Document 11/24/20 14:22 [id number] 11/24/20 14:28 11/24/20 14:22 Wound Center Nurse 2 #5 right hallux -Correct Patient No -Correct Side, Site, Position No -Correct Procedure No -Procedure Performed No -Post Debridement (cm) - Length 0 -Post Debridement (cm) - Width 0 -Post Debridement (cm) - Depth 0 -Total Square (Post) (cm) 0 -Area of Debridement (cm) - Length 0 -Area of Debridement (cm) - Width 0 -Total Square (Area) (cm) 0 -Wound/Ulcer Outcome Healed- Epithelialized - Nurse 3 - General Ulcer D/C NN Start: 11/24/20 14:11 Freq: Status: Active Protocol: Activity Type Activity Date Activity User E-Sign Co-Sign Detail Recorded Client Recorded Date Recorded By Document 11/24/20 14:29 [id number] 11/24/20 14:29 11/24/20 14:29 Pain Scale: 0-10 Numeric Is Patient Pain Free? Yes - Visit Discharge Discharge Condition Stable Ambulatory Status Ambulatory,Cane Transportation Private Auto Accompanied by daughter in law Medication Reconcilliation completed & Yes provided to patient/care provider Clinical Summary of Care Provided Yes Wound debrided: medial foot Laterality: Right No debridement was completed today - healed Assessment/Plan Active Problems (Last Reviewed 06/28/20 @ 14:33 by Iker Rodriguez SKIN CARE TECHNICIAN, SKIN CARE TECHNICIAN-C) Type 2 diabetes mellitus with diabetic polyneuropathy (Chronic) Assessment: Right foot ulcer healed. Right fifth toe ulcer healed. diabetes with neuropathy. vascular disease. malnutrition Plan: I reviewed and discussed this case with the patient. Debridement was not performed today because the ulcer is healed. To discontinue dressing care. To continue with strict offloading to allow remodeling. He understands his foot is still very friable and fragile. To continue with toe spacer into the fourth interspace. I recommend continued surgical shoe use until he follows up with the foot and ankle center for other palliative routine care within the next 2 to 4 weeks. He will bring his extra-depth protective shoes with him and I will cut in 'X' over his prominent first metatarsal at site to prevent excessive pressure formation. His prior vascular intervention is noted. To keep skin integrity intact by checking the foot daily, wearing protective shoes, and moisturizing daily. To follow-up with the foot and ankle center as scheduled. To call sooner if he has any questions or concerns. Note: [employer] speech recognition plastic design applier software was used to create portions of this document. Sound-alike and misspelled words, as well as other plastic design applier errors may be contained in the documentation. The medical decision making level is low. There is noted low risk of morbidity after considering this treatment plan and diagnostic data. The problems addressed require a low medical decision making level which includes two or more minor problems, a stable chronic illness, or an acute uncomplicated illness or injury. ------. 2020 macra: Medications, allergies were reconciled and reviewed. He did not have a living will on file. He is a current nontobacco user. His influenza and pneumococcal vaccinations have been previously reported. He denies falling with injuries this past year. His blood pressure is 106/30. His body mass index is 32.8 which is elevated. Nutrition and diet were recommended for overall health and to prevent ulcer recurrence.
== END 2020-12-17 23:59 ==
LOC: WC 14:00
PROVIDERS: PCP Family Medicine; Visit Provider Podiatrist
DX: Z09 Encounter for follow-up examination after completed treatment for conditions other than malignant neoplasm (principal); E11.42 Type 2 diabetes mellitus with diabetic polyneuropathy
CPT/HCPCS: 99213; G0463

== ENCOUNTER 2021-11-09 13:00 | Outpatient (RCR) | payer MEDICARE, OTHER, SELFPAY ==
[2021-11-02 13:21] VITALS: BP 153/85; PULSE 65; RESP 18; TEMP 36.1
--- NOTE | 2021-11-02 14:28 | RAD_ITS ---
INDICATION: FOOT ULCER EXAMINATION/TECHNIQUE: X-RAY - RIGHT XR Foot Min 3 Views 3 VIEWS COMPARISON: None. FINDINGS: No acute fracture or dislocation. Joint spaces are intact. Redemonstration of mild diffuse osteopenia. Minimal enthesopathic changes at the Achilles insertion site. Redemonstration of nonspecific soft tissue swelling or chronic soft tissue deformity overlying the first MTP joint. Soft tissues are otherwise unremarkable. No radiopaque foreign bodies. RAD/Foot min 3 Views IMPRESSION: No acute findings. Electronically Signed: Prasanth Kraft, at 15:07 EDT ,
--- NOTE | 2021-11-02 15:11 | PN.PCM_ITS ---
History of Present Illness Date of Service: 11/02/21 Chief Complaint: right foot ulcer History of Wound: This 76-year-old male returns to the wound healing clinic for reoccurrence of a right medial foot ulcer. This has been healed for an extended period of time and he noticed callus and drainage within the past 1.5 weeks. He thinks he may have bumped his foot on something. He presents with his family member today. [facility] and referred him. He has been changing the dressing with Aquacel Ag. He denies redness or odor. He denies fevers, chills, nausea, vomiting, diarrhea, loss of appetite. He has completed prior limb venous intervention with Dr. Calvillo. He denies redness or odor. He had an old offloading surgical shoe and he resumed use this past week. Progress of Wound: Return Objective Data Objective Data Vital Signs: Vital Signs Temp Pulse Resp BP 97 F L 65 18 153/85 H 11/02/21 13:21 11/02/21 13:21 11/02/21 13:21 11/02/21 13:21 Radiography Diagnostic Testing: Radiology Impression Foot X-Ray 11/02/21 14:28 IMPRESSION: No acute findings. Electronically Signed: Prasanth Kraft, at 15:07 EDT , Physical Exam Const alert and oriented x3 General Appearance: cooperative HEENT normocephalic Extremity Extremity Narrative: No calf tenderness Diminished pulses Muscle wasting noted General Extremity: edema and no tenderness to palpation of joints or extremities; Negative for cyanosis Skin Skin Narrative: no purulence, no streaking, no odor, no infection. Return skin discontinuity to medial first metatarsal head with granular base. There is no exposed capsule, bone or other deep tissue. No eschar or necrosis. No erythema. The adjacent skin is very hairless and atrophic. There are no other ulcers or maceration noted. General Skin Exam: Negative for erythema Neuro Neuro Narrative: lack of normal epicritic sensation via light touch is consistent with neuropathy status Psych cooperative and affect normal Debridement Note Debridement Note Wound debrided: medial right forefoot Wound Grade/Stage: 1 Type of Debridement: Excisional debridement Anesthesia Used: 4% Lidocaine Solution Depth: in the subcutaneous layer Percentage of wound debrided: 100 Instrument Used: #15 blade Tissue Removed: fibrous, devitalized subcutaneous, biofilm, slough Severity: Fat Layer Exposed Amount of bleeding with debridement: Mild Bleeding Controlled with: Pressure Patient tolerated procedure: Patient tolerated procedure well Post-Debridement Measurements and Additional Note: Post-Debridement Measurements/Treatment - Nurse 1 - General Ulcer Assessment Start: 11/02/21 13:20 Freq: Status: Active Protocol: HEMA Activity Type Activity Date Activity User E-Sign Co-Sign Detail Recorded Client Recorded Date Recorded By Document 11/02/21 13:21 [place] [id number] 11/02/21 13:27 [place] 11/02/21 13:21 - Today's Visit Information Type of service Initial Visit Arrival Mode Ambulatory Accompanied by Yamilka Patient Identification Verified (Name & Yes ) Vital Signs Temperature (97.8 F-99.1 F) 97 F L Temperature Source Temporal Pulse Rate (60-100) 65 Pulse Location Monitor Respiratory Rate (12-18) 18 Respiratory rate source Observation Blood Pressure (90/60-120/80) 153/85 H Blood Pressure Mean (mm Hg) 107 Source Monitor Position Sitting Blood Pressure Location Right Arm Pain Scale: 0-10 Numeric Is Patient Pain Free? Yes [facility] Nurse 1 - General Ulcer Measurement Start: 11/02/21 13:20 Freq: Status: Active Protocol: Activity Type Activity Date Activity User E-Sign Co-Sign Detail Recorded Client Recorded Date Recorded By Document 11/02/21 13:21 [place] [id number] 11/02/21 13:27 [place] 11/02/21 13:21 Wound Center Nurse 1 #9 Right Inferior Hallux -Current Size (cm) - Length 0.3 -Current Size (cm) - Width 0.4 -Current Size (cm) - Depth 0.3 -Total Square Cm 0.12 -Date of Last Picture (Recall this 11/02/21 field) -Photo Taken Yes -Undermining/Tunneling Yes -Undermining/Tunneling Starts (O'clock 7 ) -Undermining/Tunneling Ends (O'clock) 11 -Maximum Distance (cm) 0.2 -Exudate Amt Small -Exudate Type Serosanguineous -Wound Margin Thickened & Rolled Under -Granulation Amt Small (1-33%) -Granulation Quality Pale -Necrosis Amt Large (67-100%) -Necrotic Tissue Type Adherent Slough -Texture (Anna-wound Skin Appearance) Assessed -Moisture (Anna-wound Skin Appearance) Assessed -Color (Anna-wound Skin Appearance) Assessed -Temperature (Anna-wound Skin No Abnormality Appearance) (Pt Warm) -Tenderness on Palpation (Anna-wound No Skin Appearance) -Ulcer Cleansing Rinsed/ Irrigated with Saline -Foul Odor after Cleansing No -Anesthetic Used 4% Lidocaine Solution Right Calf (cm) 35.5 Right Ankle (cm) 20.0 WC - Nurse 2 - General Ulcer CM Notes Start: 11/02/21 13:20 Freq: Status: Active Protocol: Activity Type Activity Date Activity User E-Sign Co-Sign Detail Recorded Client Recorded Date Recorded By Document 11/02/21 13:39 [id number] 11/02/21 13:43 11/02/21 13:39 Wound Center Nurse 2 #9 Right Inferior Hallux -Time 13:39 -Correct Patient Yes -Correct Side, Site, Position Yes -Correct Procedure Yes -Procedure Performed Yes -Type of Procedure Debridement -Clinical Debridement Subcutaneous -Tissue Removed Dermis -Post Debridement (cm) - Length 0.6 -Post Debridement (cm) - Width 0.6 -Post Debridement (cm) - Depth 0.1 -Total Square (Post) (cm) 0.36 -Area of Debridement (cm) - Length 0.6 -Area of Debridement (cm) - Width 0.6 -Total Square (Area) (cm) 0.36 -Tunneling No -Undermining/Tunneling No -Circular Undermining No -Wound/Ulcer Outcome Not Healed -Ulcer Cleansing Rinsed/ Irrigated with Saline -Foul Odor after Cleansing No -Bioengineered Tissue No -Bleeding Controlled with Pressure -Offloading No -Treatment Response Procedure Not Tolerated Well -Debridement - Subq, 1st 20sq cm Yes Pain Scale: 0-10 Numeric Is Patient Pain Free? Yes - Nurse 3 - General Ulcer D/C NN Start: 11/02/21 13:20 Freq: Status: Active Protocol: Activity Type Activity Date Activity User E-Sign Co-Sign Detail Recorded Client Recorded Date Recorded By Document 11/02/21 14:05 [facility] [id number] 11/02/21 14:05 [facility] Document 11/02/21 14:54 [place] [id number] 11/02/21 14:55 [place] 11/02/21 11/02/21 14:05 14:54 Wound Care Nurse 3 #9 Right Inferior Hallux -Ulcer Cleansing Rinsed/ Rinsed/ Irrigated with Irrigated with Saline Saline -Foul Odor after Cleansing No -Primary Dressing Applied Aquacel AG 2x2 -Other Dressing kerlix, abd x 2 -Primary Dressing Covered/Secured with Dry Gauze, Dry Gauze & Secured with Roll Gauze, Tape Secured with Tape -Aquacel AG 2x2 1 Treatment Response Procedure Tolerated Well Pain Scale: 0-10 Numeric Is Patient Pain Free? Yes Yes WC - Visit Discharge Discharge Condition Stable Stable Ambulatory Status Ambulatory,Cane Wheelchair Transportation Private Auto Private Auto Accompanied by WEI IN LAW Medication Reconcilliation completed & No provided to patient/care provider Clinical Summary of Care Provided Yes Assessment/Plan Assessment/Plan (1) Ulcer of right foot with fat layer exposed: CODE(S): L97.512 - Non-pressure chronic ulcer of other part of right foot with fat layer exposed (2) Peripheral vascular occlusive disease: CODE(S): I73.9 - Peripheral vascular disease, unspecified (3) Type 2 diabetes mellitus with diabetic polyneuropathy: CODE(S): E11.42 - Type 2 diabetes mellitus with diabetic polyneuropathy (4) Malnutrition: CODE(S): E46 - Unspecified protein-calorie malnutrition (5) Venous insufficiency: PLAN: I reviewed and discussed this case with the patient. Debridement was performed as noted in the clinical panel including medial forefoot. It is noted his ulcer has reoccurred. The following recommendations and work-up was performed: Dressing: Aquacel Ag daily Wash: Antibacterial soap and water Offload: Surgical shoe with medial fabric removed to take pressure off the ulcer site. He already has this. Vascular: It is also noted he has a history of vascular disease with occlusive disease identified even with his updated noninvasive vascular studies performed in early September 2019. Arterial intervention was not planned at the time I was providing care about 1 year ago. I reviewed his noninvasive vascular studies and he does have reduced toe brachial index of about 0.52 on the right. Over updated referral to vascular specialist to see if additional work-up, imaging or intervention is an option at this time due to his recurrent ulcer status. He also has venous disease and had prior intervention with Dr. Calvillo for this condition. Edema: Tubigrip with periodic elevation right lower extremity Infection: He was reassured there is no deep tissue exposure signs of local infection noted today. To monitor. Pain: Not present due to neuropathic status Host factors: To continue to monitor and improved glucose levels due to his diabetes status. I recommended nutritional supplementation including Lalo to optimize healing. I advised him to intake adequate amounts of healthy protein and at least 5-10 fresh fruits and vegetables daily. To avoid processed foods and strive for eating whole foods. Diagnostic data: I recommend he updates a right foot x-ray and an order was provided today. I would also like to update his labs to get it idea of his baseline medical status. He relates he had lab work obtained while he visited his primary care physician, Dr. Johnson, this past Sunday. Medical records will be requested. His last A1c on file was 7.1%. I answered all the patient's questions. To return to the wound healing center in 1 week or call sooner if the patient has any questions or concerns. Note: [employer] speech recognition parachute crown sewer software was used to create portions of this document. Sound-alike and misspelled words, as well as other parachute crown sewer errors may be contained in the documentation. The medical decision making level is limited based on data including the review of prior external notes, review of a prior test, or ordering a test. The medical decision making level is low. There is noted low risk of morbidity after considering this treatment plan and diagnostic data.
[2021-11-09 13:07] VITALS: BP 126/41; PULSE 73; RESP 18; TEMP 36.1
--- NOTE | 2021-11-09 13:49 | PN.PCM_ITS ---
History of Present Illness Date of Service: 11/09/21 Chief Complaint: right foot ulcer History of Wound: This 76-year-old male returns to the wound healing clinic for reoccurrence of a right medial foot ulcer. He has been changing the dressing with Aquacel Ag and the ulcer site is dry. He denies redness or odor. He denies fevers, chills, nausea, vomiting, diarrhea, loss of appetite. He has completed prior limb venous intervention with Dr. Calvillo. He has an additional follow up on November 23. He denies redness or odor. He had an offloading surgical shoe and tries to keep weight on the heel. Progress of Wound: improved Objective Data Objective Data Vital Signs: Vital Signs Temp Pulse Resp BP 97 F L 73 18 126/41 H 11/09/21 13:07 11/09/21 13:07 11/09/21 13:07 11/09/21 13:07 Oxygen Delivery Method Room Air Physical Exam Const alert and oriented x3 General Appearance: cooperative HEENT normocephalic Extremity Extremity Narrative: No calf tenderness Diminished pulses Muscle wasting noted General Extremity: edema and no tenderness to palpation of joints or extremities; Negative for cyanosis Skin Skin Narrative: no purulence, no streaking, no odor, no infection. Return skin discontinuity to medial first metatarsal head with granular base. There is no exposed capsule, bone or other deep tissue. No eschar or necrosis. No erythema. The adjacent skin is very hairless and atrophic. There are no other ulcers or maceration noted. General Skin Exam: Negative for erythema Neuro Neuro Narrative: lack of normal epicritic sensation via light touch is consistent with neuropathy status Psych cooperative and affect normal Debridement Note Debridement Note Wound debrided: right medial foot Wound Grade/Stage: 1 Type of Debridement: Excisional debridement Anesthesia Used: 4% Lidocaine Solution Depth: in the subcutaneous layer Percentage of wound debrided: 100 Instrument Used: #15 blade Tissue Removed: fibrous, devitalized subcutaneous, biofilm, slough Severity: Fat Layer Exposed Amount of bleeding with debridement: Mild Bleeding Controlled with: Pressure Patient tolerated procedure: Patient tolerated procedure well Post-Debridement Measurements and Additional Note: Post-Debridement Measurements/Treatment URBAN - Nurse 1 - General Ulcer Assessment Start: 11/02/21 13:20 Freq: Status: Active Protocol: HEMA Activity Type Activity Date Activity User E-Sign Co-Sign Detail Recorded Client Recorded Date Recorded By Document 11/02/21 13:21 [place] [id number] 11/02/21 13:27 [place] Document 11/09/21 13:07 [facility] [id number] 11/09/21 13:13 BM 11/02/21 11/09/21 13:21 13:07 - Today's Visit Information Type of service Initial Visit Follow-up Visit (Physician/SIZER [facility] ) Arrival Mode Ambulatory Ambulatory,Cane Transfer Assistance None Accompanied by Yamilka CARVAJAL Patient Identification Verified (Name & Yes Yes ) Patient Requires Transmission-Based No Precautions Vital Signs Temperature (97.8 F-99.1 F) 97 F L 97 F L Temperature Source Temporal Temporal Pulse Rate (60-100) 65 73 Pulse Location Monitor Monitor Respiratory Rate (12-18) 18 18 Respiratory rate source Observation Observation Oxygen Delivery Method Room Air Blood Pressure (90/60-120/80) 153/85 H 126/41 H Blood Pressure Mean (mm Hg) 107 69 Source Monitor Monitor Position Sitting Sitting Blood Pressure Location Right Arm Left Arm History Since Last Visit- (Skip if this is Patient's initial visit) Have you changed medications since your No last visit? Any new allergies or adverse reactions No Had a fall/change in ADL's that may No increase risk of falls Signs or symptoms of abuse and/or No neglect since last visit Have you been in the hospital since your No last visit? Has dressing in place as prescribed Yes Has compression in place as prescribed N/A Has offloadiing in place as prescribed Yes Experienced any changes in pain level or No management Left Footwear Regular Shoe Right Footwear Surgical Shoe with pressure relief insole Pain Scale: 0-10 Numeric Is Patient Pain Free? Yes Yes - Nurse 1 - General Ulcer Measurement Start: 11/02/21 13:20 Freq: Status: Active Protocol: Activity Type Activity Date Activity User E-Sign Co-Sign Detail Recorded Client Recorded Date Recorded By Document 11/02/21 13:21 [place] [id number] 11/02/21 13:27 [place] Document 11/09/21 13:07 [facility] [id number] 11/09/21 13:13 [facility] 11/02/21 11/09/21 13:21 13:07 Wound Center Nurse 1 #9 Right Inferior Hallux -Combined with other wound No -Current Size (cm) - Length 0.3 0.5 -Current Size (cm) - Width 0.4 0.4 -Current Size (cm) - Depth 0.3 0.2 -Total Square Cm 0.12 0.20 -Date of Last Picture (Recall this 11/02/21 11/09/21 field) -Photo Taken Yes Yes -Epithelialization Small 1-33% -Tunneling No -Undermining/Tunneling Yes No -Undermining/Tunneling Starts (O'clock 7 ) -Undermining/Tunneling Ends (O'clock) 11 -Maximum Distance (cm) 0.2 -Circular Undermining No -Exudate Amt Small Small -Exudate Type Serosanguineous Serous -Wound Margin Thickened & Distinct, Rolled Under Outline Attached -Granulation Amt Small (1-33%) Medium (34-66%) -Granulation Quality Pale [place] -Slough/Fibrin Yes -Necrosis Amt Large (67-100%) Medium (34-66%) -Necrotic Tissue Type Adherent Slough Adherent Slough -Texture (Anna-wound Skin Appearance) Assessed Assessed, Scarring -Moisture (Anna-wound Skin Appearance) Assessed Assessed,Dry/ Scaly -Color (Anna-wound Skin Appearance) Assessed Assessed -Temperature (Anna-wound Skin No Abnormality No Abnormality Appearance) (Pt Warm) (Pt Warm) -Tenderness on Palpation (Anna-wound No No Skin Appearance) -Ulcer Cleansing Rinsed/ Rinsed/ Irrigated with Irrigated with Saline Saline -Foul Odor after Cleansing No No -Anesthetic Used 4% Lidocaine 5% Lidocaine Solution Gel Right Calf (cm) 35.5 Right Ankle (cm) 20.0 WC - Nurse 2 - General Ulcer CM Notes Start: 11/02/21 13:20 Freq: Status: Active Protocol: Activity Type Activity Date Activity User E-Sign Co-Sign Detail Recorded Client Recorded Date Recorded By Document 11/02/21 13:39 [id number] 11/02/21 13:43 Document 11/09/21 13:21 [id number] 11/09/21 13:23 11/02/21 11/09/21 13:39 13:21 Wound Center Nurse 2 #9 Right Inferior Hallux -Time 13:39 13:21 -Correct Patient Yes Yes -Correct Side, Site, Position Yes Yes -Correct Procedure Yes Yes -Procedure Performed Yes Yes -Type of Procedure Debridement Debridement -Clinical Debridement Subcutaneous Subcutaneous -Tissue Removed Dermis Subcutaneous -Post Debridement (cm) - Length 0.6 0.5 -Post Debridement (cm) - Width 0.6 0.5 -Post Debridement (cm) - Depth 0.1 0.2 -Total Square (Post) (cm) 0.36 0.25 -Area of Debridement (cm) - Length 0.6 0.5 -Area of Debridement (cm) - Width 0.6 0.5 -Total Square (Area) (cm) 0.36 0.25 -Tunneling No No -Undermining/Tunneling No No -Circular Undermining No No -Wound/Ulcer Outcome Not Healed Not Healed -Ulcer Cleansing Rinsed/ Rinsed/ Irrigated with Irrigated with Saline Saline -Foul Odor after Cleansing No No -Bioengineered Tissue No No -Bleeding Controlled with Pressure Pressure -Treatment Response Procedure Not Procedure Tolerated Well Tolerated Well -Offloading No Yes -Type of Offloading Surgical Shoe -Debridement - Subq, 1st 20sq cm Yes Yes Pain Scale: 0-10 Numeric Is Patient Pain Free? Yes Yes WC - Nurse 3 - General Ulcer D/C NN Start: 11/02/21 13:20 Freq: Status: Active Protocol: Activity Type Activity Date Activity User E-Sign Co-Sign Detail Recorded Client Recorded Date Recorded By Document 11/02/21 14:05 [facility] [id number] 11/02/21 14:05 [facility] Document 11/02/21 14:54 [place] [id number] 11/02/21 14:55 [place] Document 11/09/21 13:29 RB [id number] 11/09/21 13:30 RB 11/02/21 11/02/21 11/09/21 14:05 14:54 13:29 Wound Care Nurse 3 #9 Right Inferior Hallux -Ulcer Cleansing Rinsed/ Rinsed/ Rinsed/ Irrigated with Irrigated with Irrigated with Saline Saline Saline -Foul Odor after Cleansing No -Primary Dressing Applied Aquacel AG 2x2 C Hydrogel ($) -Other Dressing kerlix, abd x 2 hydrogel -Primary Dressing Covered/Secured with Dry Gauze, Dry Gauze & Dry Gauze,Dry Secured with Roll Gauze, Gauze & Roll Tape Secured with Gauze,Secured Tape with Tape -Aquacel AG 2x2 1 Treatment Response Procedure Procedure Tolerated Well Tolerated Well Pain Scale: 0-10 Numeric Is Patient Pain Free? Yes Yes Yes WC - Visit Discharge Discharge Condition Stable Stable Stable Ambulatory Status Ambulatory,Cane Wheelchair Ambulatory,Cane Transportation Private Auto Private Auto Private Auto Accompanied by WEI IN LAW Medication Reconcilliation completed & No No provided to patient/care provider Clinical Summary of Care Provided Yes Yes Assessment/Plan Assessment/Plan (1) Ulcer of right foot with fat layer exposed: CODE(S): L97.512 - Non-pressure chronic ulcer of other part of right foot with fat layer exposed (2) Peripheral vascular occlusive disease: CODE(S): I73.9 - Peripheral vascular disease, unspecified (3) Type 2 diabetes mellitus with diabetic polyneuropathy: CODE(S): E11.42 - Type 2 diabetes mellitus with diabetic polyneuropathy (4) Malnutrition: CODE(S): E46 - Unspecified protein-calorie malnutrition (5) Venous insufficiency: PLAN: I reviewed and discussed this case with the patient. Debridement was performed as noted in the clinical panel including medial forefoot. It is noted his ulcer has reoccurred. The following recommendations and work-up was performed: Dressing: hydrogel daily Wash: Antibacterial soap and water Offload: Surgical shoe with medial fabric removed to take pressure off the ulcer site. He already has this. Vascular: It is also noted he has a history of vascular disease with occlusive disease identified even with his updated noninvasive vascular studies performed in early September 2019. Arterial intervention was not planned at the time I was providing care about 1 year ago. I reviewed his noninvasive vascular studies and he does have reduced toe brachial index of about 0.52 on the right. Over updated referral to vascular specialist to see if additional work-up, imaging or intervention is an option at this time due to his recurrent ulcer status. He also has venous disease and had prior intervention with Dr. Calvillo for this condition. To follow up as scheduled November 23. Edema: Tubigrip with periodic elevation right lower extremity Infection: He was reassured there is no deep tissue exposure signs of local infection noted today. To monitor. Pain: Not present due to neuropathic status Host factors: To continue to monitor and improved glucose levels due to his diabetes status. I recommended nutritional supplementation including Lalo to optimize healing. I advised him to intake adequate amounts of healthy protein and at least 5-10 fresh fruits and vegetables daily. To avoid processed foods and strive for eating whole foods. Diagnostic data: I recommend he updates a right foot x-ray and this was reviewed without acute findings, foreign body, soft tissue emphysema or osseous destruction. I would also like to update his labs to get it idea of his baseline medical status. He relates he had lab work obtained while he visited his primary care physician, Dr. Johnson, this past couple weeks. Medical records have already been requested. His last A1c on file was 7.1%. I answered all the patient's questions. To return to the wound healing center in 1 week or call sooner if the patient has any questions or concerns. Note: [employer] speech recognition music orchestrator software was used to create portions of this document. Sound-alike and misspelled words, as well as other music orchestrator errors may be contained in the documentation.
== END 2021-11-17 23:59 | disposition home or self-care (01) ==
LOC: WC 13:00
PROVIDERS: PCP Family Medicine; Visit Provider Podiatrist
DX: E11.621 Type 2 diabetes mellitus with foot ulcer (principal); E11.51 Type 2 diabetes mellitus with diabetic peripheral angiopathy without gangrene; L97.512 Non-pressure chronic ulcer of other part of right foot with fat layer exposed; E11.42 Type 2 diabetes mellitus with diabetic polyneuropathy
CPT/HCPCS: 11042; 73630; 99213; G0463

== ENCOUNTER 2021-11-29 13:00 | Outpatient (RCR) | payer MEDICARE, OTHER, SELFPAY ==
[2021-11-18 00:45] VITALS: BP 126/41; PULSE 73; RESP 18; TEMP 36.1
[2021-11-29 13:03] VITALS: BP 134/43; PULSE 69; RESP 16; TEMP 36.3
--- NOTE | 2021-11-29 14:13 | PCM.WC.PN ---
History of Present Illness Date of Service: 11/29/21 Chief Complaint: right foot ulcer History of Wound: This 76-year-old male returns to the wound healing clinic for reoccurrence of a right medial foot ulcer. He has been changing the dressing with Aquacel Ag and the ulcer site is dry. He denies redness or odor. He denies fevers, chills, nausea, vomiting, diarrhea, loss of appetite. He has completed prior limb venous intervention with Dr. Calvillo. He had an additional follow up on November 23; additional intervention is not planned per the patient. He denies redness or odor. He had an offloading surgical shoe and tries to keep weight on the heel. He is with his family member today. Progress of Wound: stable Objective Data Objective Data Vital Signs: Vital Signs Temp Pulse Resp BP 97.4 F L 69 16 134/43 H 11/29/21 13:03 11/29/21 13:03 11/29/21 13:03 11/29/21 13:03 Oxygen Delivery Method Room Air Physical Exam Const alert and oriented x3 General Appearance: cooperative HEENT normocephalic Extremity Extremity Narrative: No calf tenderness Diminished pulses Muscle wasting noted General Extremity: edema and no tenderness to palpation of joints or extremities; Negative for cyanosis Skin Skin Narrative: no purulence, no streaking, no odor, no infection. Return skin discontinuity to medial first metatarsal head with granular base. There is no exposed capsule, bone or other deep tissue. No eschar or necrosis. No erythema. The adjacent skin is very hairless and atrophic. There are no other ulcers or maceration noted. General Skin Exam: Negative for erythema Neuro Neuro Narrative: lack of normal epicritic sensation via light touch is consistent with neuropathy status Psych cooperative and affect normal Debridement Note Debridement Note Wound debrided: Right medial first metatarsal head Wound Grade/Stage: 1 Type of Debridement: Excisional debridement Anesthesia Used: 4% Lidocaine Solution Depth: in the subcutaneous layer Percentage of wound debrided: 100 Instrument Used: #15 blade Tissue Removed: fibrous, devitalized subcutaneous, biofilm, slough Severity: Fat Layer Exposed Amount of bleeding with debridement: Mild Bleeding Controlled with: Pressure Patient tolerated procedure: Patient tolerated procedure well Post-Debridement Measurements and Additional Note: Post-Debridement Measurements/Treatment WC - Nurse 1 - General Ulcer Assessment Start: 11/29/21 13:03 Freq: Status: Active Protocol: HEMA Activity Type Activity Date Activity User E-Sign Co-Sign Detail Recorded Client Recorded Date Recorded By Document 11/29/21 13:03 [id number] 11/29/21 13:07 11/29/21 13:03 - Today's Visit Information Type of service Follow-up Visit (Physician/[facility] ) Arrival Mode Ambulatory Transfer Assistance None Accompanied by daughter in law Patient Identification Verified (Name & Yes ) Patient Requires Transmission-Based No Precautions Safety Precautions NA Finger Stick Blood Sugar(mg/dl) (if 127 indicated): Blood Sugar Stated by Patient Vital Signs Temperature (97.8 F-99.1 F) 97.4 F L Temperature Source Temporal Pulse Rate (60-100) 69 Pulse Location Monitor Respiratory Rate (12-18) 16 Respiratory rate source Observation Oxygen Delivery Method Room Air Blood Pressure (90/60-120/80) 134/43 H Blood Pressure Mean (mm Hg) 73 Source Monitor Position Sitting Blood Pressure Location Left Arm History Since Last Visit- (Skip if this is Patient's initial visit) Have you changed medications since your No last visit? Any new allergies or adverse reactions No Had a fall/change in ADL's that may No increase risk of falls Signs or symptoms of abuse and/or No neglect since last visit Have you been in the hospital since your No last visit? Has dressing in place as prescribed Yes Has compression in place as prescribed N/A Has offloadiing in place as prescribed N/A Experienced any changes in pain level or No management Left Footwear Regular Shoe Right Footwear Removable Cast Walker/Walking Boot Pain Scale: 0-10 Numeric Is Patient Pain Free? Yes Teaching: Wound Center Dressing Your Wound -Person Taught Patient,Family -Teaching Method Discussion -Response to teaching Verbalize understanding - Nurse 1 - General Ulcer Measurement Start: 11/29/21 13:03 Freq: Status: Active Protocol: Activity Type Activity Date Activity User E-Sign Co-Sign Detail Recorded Client Recorded Date Recorded By Document 11/29/21 13:03 [id number] 11/29/21 13:07 11/29/21 13:03 Wound Center Nurse 1 #9 Right Inferior Hallux -Combined with other wound No -Current Size (cm) - Length 0.5 -Current Size (cm) - Width 0.4 -Current Size (cm) - Depth 0.2 -Total Square Cm 0.20 -Date of Last Picture (Recall this 11/29/21 field) -Photo Taken Yes -Epithelialization None Present -Tunneling No -Undermining/Tunneling No -Circular Undermining No -Exudate Amt Medium -Exudate Type Serosanguineous -Wound Margin Thickened -Granulation Amt Large (67-100%) -Granulation Quality [place] -Slough/Fibrin Yes -Necrosis Amt Small (1-33%) -Necrotic Tissue Type Adherent Slough -Structure Exposed N/A -Texture (Anna-wound Skin Appearance) Assessed,Callus -Moisture (Anna-wound Skin Appearance) No Abnormality, Assessed -Color (Anna-wound Skin Appearance) Assessed, Erythema -Temperature (Anna-wound Skin No Abnormality Appearance) (Pt Warm) -Tenderness on Palpation (Anna-wound Yes Skin Appearance) -Ulcer Cleansing Rinsed/ Irrigated with Saline -Foul Odor after Cleansing No -Anesthetic Used 5% Lidocaine Gel Lower Limb Edema Present No WC - Nurse 2 - General Ulcer CM Notes Start: 11/29/21 13:03 Freq: Status: Active Protocol: Activity Type Activity Date Activity User E-Sign Co-Sign Detail Recorded Client Recorded Date Recorded By Document 11/29/21 13:16 DORA [id number] 11/29/21 13:27 DORA 11/29/21 13:16 Wound Center Nurse 2 #9 Right Inferior Hallux -Time 13:17 -Correct Patient Yes -Correct Side, Site, Position Yes -Correct Procedure Yes -Procedure Performed Yes -Type of Procedure Debridement -Clinical Debridement Subcutaneous -Tissue Removed Subcutaneous -Post Debridement (cm) - Length 0.5 -Post Debridement (cm) - Width 0.5 -Post Debridement (cm) - Depth 0.2 -Total Square (Post) (cm) 0.25 -Area of Debridement (cm) - Length 0.5 -Area of Debridement (cm) - Width 0.5 -Total Square (Area) (cm) 0.25 -Tunneling No -Undermining/Tunneling No -Circular Undermining No -Wound/Ulcer Outcome Not Healed -Ulcer Cleansing Rinsed/ Irrigated with Saline -Foul Odor after Cleansing No -Bioengineered Tissue No -Bleeding Controlled with Pressure -Treatment Response Procedure Tolerated Well -Offloading Yes -Type of Offloading Surgical Shoe -Debridement - Subq, 1st 20sq cm Yes Pain Scale: 0-10 Numeric Is Patient Pain Free? Yes - Nurse 3 - General Ulcer D/C NN Start: 11/29/21 13:03 Freq: Status: Active Protocol: Activity Type Activity Date Activity User E-Sign Co-Sign Detail Recorded Client Recorded Date Recorded By Document 11/29/21 13:27 [id number] 11/29/21 13:27 11/29/21 13:27 Wound Care Nurse 3 #9 Right Inferior Hallux -Ulcer Cleansing Rinsed/ Irrigated with Saline -Foul Odor after Cleansing No -Primary Dressing Applied C Hydrogel ($) -Primary Dressing Covered/Secured with Dry Gauze, Secured with Tape Pain Scale: 0-10 Numeric Is Patient Pain Free? Yes WC - Visit Discharge Discharge Condition Stable Ambulatory Status Ambulatory,Cane Transportation Private Auto Accompanied by DIL Medication Reconcilliation completed & Yes provided to patient/care provider Clinical Summary of Care Provided Yes Assessment/Plan Assessment/Plan (1) Ulcer of right foot with fat layer exposed: CODE(S): L97.512 - Non-pressure chronic ulcer of other part of right foot with fat layer exposed (2) Peripheral vascular occlusive disease: CODE(S): I73.9 - Peripheral vascular disease, unspecified (3) Type 2 diabetes mellitus with diabetic polyneuropathy: CODE(S): E11.42 - Type 2 diabetes mellitus with diabetic polyneuropathy (4) Malnutrition: CODE(S): E46 - Unspecified protein-calorie malnutrition (5) Venous insufficiency: PLAN: I reviewed and discussed this case with the patient. Debridement was performed as noted in the clinical panel including medial forefoot. It is noted his ulcer has reoccurred. The following recommendations and work-up was performed: Dressing: hydrogel daily Wash: Antibacterial soap and water Offload: Surgical shoe with medial fabric removed to take pressure off the ulcer site. He already has this. Vascular: It is also noted he has a history of vascular disease with occlusive disease identified even with his updated noninvasive vascular studies performed in early September 2019. Arterial intervention was not planned at the time I was providing care about 1 year ago. I reviewed his noninvasive vascular studies and he does have reduced toe brachial index of about 0.52 on the right. Over updated referral to vascular specialist to see if additional work-up, imaging or intervention is an option at this time due to his recurrent ulcer status. He also has venous disease and had prior intervention with Dr. Calvillo for this condition. To did recently follow up as scheduled November 23. Medical records have been requested. Edema: Tubigrip with periodic elevation right lower extremity Infection: He was reassured there is no deep tissue exposure signs of local infection noted today. To monitor. Pain: Not present due to neuropathic status Host factors: To continue to monitor and improved glucose levels due to his diabetes status. I recommended nutritional supplementation including Lalo to optimize healing. I advised him to intake adequate amounts of healthy protein and at least 5-10 fresh fruits and vegetables daily. To avoid processed foods and strive for eating whole foods. Diagnostic data: I recommend he updates a right foot x-ray and this was reviewed without acute findings, foreign body, soft tissue emphysema or osseous destruction. I would also like to update his labs to get it idea of his baseline medical status. He relates he had lab work obtained while he visited his primary care physician, Dr. Johnson, this past couple weeks. Medical records have already been requested. His last A1c on file was 7.1%. I answered all the patient's questions. To return to the wound healing center in 1 week or call sooner if the patient has any questions or concerns. Note: [employer] speech recognition tool crib clerk software was used to create portions of this document. Sound-alike and misspelled words, as well as other tool crib clerk errors may be contained in the documentation.
== END 2021-12-17 23:59 | disposition home or self-care (01) ==
LOC: WC 13:00
PROVIDERS: PCP Family Medicine; Visit Provider Podiatrist
DX: E11.621 Type 2 diabetes mellitus with foot ulcer (principal); E11.51 Type 2 diabetes mellitus with diabetic peripheral angiopathy without gangrene; L97.512 Non-pressure chronic ulcer of other part of right foot with fat layer exposed; E11.42 Type 2 diabetes mellitus with diabetic polyneuropathy
CPT/HCPCS: 11042

== ENCOUNTER → 2021-12-19 | Outpatient (CLI) | payer MEDICARE, OTHER, SELFPAY ==
--- NOTE | 2021-12-19 09:59 | ART_ITS ---
Reason For Study: Atherosclerosis Procedure A bilateral lower extremity continuous wave Doppler with analog waveform analysis and ankle brachial indexes. Left Segmental Pressures Left brachial= 155mmHg. Left posterior tibial artery = 167mmHg. Left dorsalis pedis artery = 156mmHg. Left digit = 112 mmHg. The left dorsalis pedis waveforms are triphasic. The left posterior tibial artery waveforms are triphasic. Right Segmental Pressures Right brachial= 157mmHg. Right posterior tibial artery = 180mmHg. Right dorsalis pedis artery = 158mmHg. Right digit = 116 mmHg. The right dorsalis pedis waveforms are triphasic. The right posterior tibial artery waveforms are triphasic. Indices The right ankle brachial index by the dorsalis pedis is 1.01. The right ankle brachial index by the posterior tibial artery is 1.15. The right digital-brachial index is 0.74. The left ankle brachial index by the dorsalis pedis is 0.99. The left ankle brachial index by the posterior tibial artery is 1.06. The left digital-brachial index is 0.71. VL/Ankle Brachial Index Interpretation Summary Bilateral lower extremities no evidence of significant occlusive disease at res t with triphasic flow noted in EULALIA 1.15 and 1.06. Digit brachial index of 0.74 and 0.71. Ordering Physician: Indra Calvillo Referring Physician: Luis Johnson Performed By: Lisa Peña RVT
--- NOTE | 2021-12-19 09:59 | ADUL_ITS ---
Reason For Study: Stricture of artery Right Velocities Ext. Iliac Artery, dist = 172.5 cm./sec. Common Femoral Artery, mid = 177.6 cm./sec. Supf Femoral Artery, prox = 91.6 cm./sec. Supf Femoral Artery, mid = 106.3 cm./sec. Supf Femoral Artery, dist. = 84.2 cm./sec. Profunda Femoral Artery = 68.3 cm./sec. Popliteal Artery, mid = 52.3 cm./sec. Post. Tibial Artery, prox = 85.3 cm./sec. Post. Tibial Artery, mid = 94.1 cm./sec. Post. Tibial Artery, dist = 108.8 cm./sec. Peroneal Artery, prox = 51.2 cm./sec. Peroneal Artery, mid = 60 cm./sec. Peroneal Artery,dist = 23.2 cm./sec. Ant. Tibial Artery, prox = 69.5 cm./sec. Ant. Tibial Artery, mid = 61 cm./sec. Ant. Tibial Artery, dist = 44 cm./sec. Procedure Exam performed in department. /US Art Duplex Unilat Lower Ext Interpretation Summary Right lower extremity with no evidence of stenosis noted. Triphasic flow noted throughout. Ordering Physician: Indra Calvillo Referring Physician: Luis Johnson Performed By: Lisa Peña RVT
== END | disposition home or self-care (01) ==
LOC: CVS 09:44
PROVIDERS: PCP Family Medicine; Visit Provider Surgery Vascular Surgery
DX: I77.1 Stricture of artery (principal)
CPT/HCPCS: 93922; 93926

== ENCOUNTER 2022-01-04 13:00 | Outpatient (RCR) | payer MEDICARE, OTHER, SELFPAY ==
[2021-12-18 00:38] VITALS: BP 134/43; PULSE 69; RESP 16; TEMP 36.3
[2021-12-21 13:10] VITALS: BP 173/62; PULSE 88; TEMP 36.1
--- NOTE | 2021-12-21 13:38 | PCM.WC.PN ---
History of Present Illness Date of Service: 12/21/21 Chief Complaint: right foot ulcer History of Wound: Follow-up appointment is still pending. This 76-year-old male returns to the wound healing clinic for reoccurrence of a right medial foot ulcer. He has been changing the dressing with Aquacel Ag and the ulcer site is dry. He denies redness or odor. He denies fevers, chills, nausea, vomiting, diarrhea, loss of appetite. He has completed prior limb venous intervention with Dr. Calvillo. He had an additional follow up on November 23; updated tests were ordered. He denies redness or odor. He had an offloading surgical shoe and tries to keep weight on the heel. He is with his family member today. He is with his daughter today and she reports he has a new wound to the back of his left leg. The onset was within the past week from a golf cart he rides around. Progress of Wound: improving Objective Data Objective Data Vital Signs: Vital Signs Temp Pulse Resp BP 97.0 F L 88 16 173/62 H 12/21/21 13:10 12/21/21 13:10 12/18/21 00:38 12/21/21 13:10 Physical Exam Const alert and oriented x3 General Appearance: cooperative HEENT normocephalic Extremity Extremity Narrative: No calf tenderness Diminished pulses Muscle wasting noted General Extremity: edema and no tenderness to palpation of joints or extremities; Negative for cyanosis Skin Skin Narrative: no purulence, no streaking, no odor, no infection. Return skin discontinuity to medial first metatarsal head with granular base. There is no exposed capsule, bone or other deep tissue. No eschar or necrosis. No erythema. The adjacent skin is very hairless and atrophic. no maceration noted. There is a new dried eschar upon removal granular superficial base ulcers to the posterior left leg without deep tissue necrosis or infection. General Skin Exam: Negative for erythema Neuro Neuro Narrative: lack of normal epicritic sensation via light touch is consistent with neuropathy status Psych cooperative and affect normal Debridement Note Debridement Note Wound debrided: right medial forefoot, left posterior leg Wound Grade/Stage: 1,1 Type of Debridement: Excisional debridement Anesthesia Used: 4% Lidocaine Solution Depth: in the subcutaneous layer Percentage of wound debrided: 100 Instrument Used: #15 blade Tissue Removed: fibrous, devitalized subcutaneous, biofilm, slough Severity: Fat Layer Exposed Amount of bleeding with debridement: Mild Bleeding Controlled with: Pressure Patient tolerated procedure: Patient tolerated procedure well Post-Debridement Measurements and Additional Note: Post-Debridement Measurements/Treatment - Nurse 1 - General Ulcer Assessment Start: 12/21/21 13:10 Freq: Status: Active Protocol: HEMA Activity Type Activity Date Activity User E-Sign Co-Sign Detail Recorded Client Recorded Date Recorded By Document 12/21/21 13:10 [email or web address] [id number] 12/21/21 13:12 KR 12/21/21 13:10 - Today's Visit Information Type of service Follow-up Visit (Physician/[facility] [employer] [employer] [facility] ) Arrival Mode Ambulatory,Cane Accompanied by daughter Patient Identification Verified (Name & Yes ) Vital Signs Temperature (97.8 F-99.1 F) 97.0 F L Temperature Source Temporal Pulse Rate (60-100) 88 Pulse Location Monitor Blood Pressure (90/60-120/80) 173/62 H Blood Pressure Mean (mm Hg) 99 Source Monitor Position Sitting Blood Pressure Location Left Arm History Since Last Visit- (Skip if this is Patient's initial visit) Have you changed medications since your No last visit? Any new allergies or adverse reactions No Had a fall/change in ADL's that may No increase risk of falls Signs or symptoms of abuse and/or No neglect since last visit Have you been in the hospital since your No last visit? Has dressing in place as prescribed Yes Has compression in place as prescribed N/A Has offloadiing in place as prescribed Yes Experienced any changes in pain level or No management Left Footwear Regular Shoe Right Footwear Surgical Shoe with pressure relief insole Pain Scale: 0-10 Numeric Is Patient Pain Free? Yes [facility] Nurse 1 - General Ulcer Measurement Start: 12/21/21 13:10 Freq: Status: Active Protocol: Activity Type Activity Date Activity User E-Sign Co-Sign Detail Recorded Client Recorded Date Recorded By Document 12/21/21 13:10 [email or web address] [id number] 12/21/21 13:12 KR 12/21/21 13:10 Wound Center Nurse 1 #9 Right Inferior Hallux -Current Size (cm) - Length 0.3 -Current Size (cm) - Width 0.3 -Current Size (cm) - Depth 0.2 -Total Square Cm 0.09 -Exudate Amt Small -Exudate Type Serosanguineous -Wound Margin Distinct, Outline Attached -Granulation Amt Small (1-33%) -Granulation Quality [place] -Texture (Anna-wound Skin Appearance) Assessed,Callus ,Scarring -Moisture (Anna-wound Skin Appearance) No Abnormality, Assessed -Color (Anna-wound Skin Appearance) No Abnormality, Assessed -Temperature (Anna-wound Skin No Abnormality Appearance) (Pt Warm) -Tenderness on Palpation (Anna-wound No Skin Appearance) -Ulcer Cleansing Rinsed/ Irrigated with Saline -Foul Odor after Cleansing No -Anesthetic Used 5% Lidocaine Gel WC - Nurse 2 - General Ulcer CM Notes Start: 12/21/21 13:10 Freq: Status: Active Protocol: Activity Type Activity Date Activity User E-Sign Co-Sign Detail Recorded Client Recorded Date Recorded By Document 12/21/21 13:27 DORA [id number] 12/21/21 13:37 DORA 12/21/21 13:27 Wound Center Nurse 2 10-left medial leg ulcer cluster -Time 13:31 -Correct Patient Yes -Correct Side, Site, Position Yes -Correct Procedure Yes -Procedure Performed Yes -Type of Procedure Debridement -Clinical Debridement Subcutaneous -Tissue Removed Subcutaneous -Post Debridement (cm) - Length 1.6 -Post Debridement (cm) - Width 0.7 -Post Debridement (cm) - Depth 0.2 -Total Square (Post) (cm) 1.12 -Area of Debridement (cm) - Length 1.6 -Area of Debridement (cm) - Width 0.7 -Total Square (Area) (cm) 1.12 -Tunneling No -Undermining/Tunneling No -Circular Undermining No -Wound/Ulcer Outcome Not Healed -Ulcer Cleansing Rinsed/ Irrigated with Saline -Foul Odor after Cleansing No -Bioengineered Tissue No -Bleeding Controlled with Pressure -Treatment Response Procedure Tolerated Well -Offloading No -Debridement - Subq, 1st 20sq cm Yes #9 Right Inferior Hallux -Time 13:28 -Correct Patient Yes -Correct Side, Site, Position Yes -Correct Procedure Yes -Procedure Performed Yes -Type of Procedure Debridement -Clinical Debridement Subcutaneous -Tissue Removed Subcutaneous -Post Debridement (cm) - Length 0.6 -Post Debridement (cm) - Width 0.5 -Post Debridement (cm) - Depth 0.2 -Total Square (Post) (cm) 0.30 -Area of Debridement (cm) - Length 0.6 -Area of Debridement (cm) - Width 0.5 -Total Square (Area) (cm) 0.30 -Tunneling No -Undermining/Tunneling No -Circular Undermining No -Wound/Ulcer Outcome Not Healed -Ulcer Cleansing Rinsed/ Irrigated with Saline -Foul Odor after Cleansing No -Bioengineered Tissue No -Bleeding Controlled with Pressure -Treatment Response Procedure Tolerated Well -Offloading Yes -Type of Offloading Surgical Shoe -Debridement - Subq, 1st 20sq cm Yes Pain Scale: 0-10 Numeric Is Patient Pain Free? Yes Assessment/Plan Assessment/Plan (1) Ulcer of right foot with fat layer exposed: CODE(S): L97.512 - Non-pressure chronic ulcer of other part of right foot with fat layer exposed (2) Peripheral vascular occlusive disease: CODE(S): I73.9 - Peripheral vascular disease, unspecified (3) Type 2 diabetes mellitus with diabetic polyneuropathy: CODE(S): E11.42 - Type 2 diabetes mellitus with diabetic polyneuropathy (4) Malnutrition: CODE(S): E46 - Unspecified protein-calorie malnutrition (5) Venous insufficiency: (6) Ulcer of left lower extremity with fat layer exposed: CODE(S): L97.922 - Non-pressure chronic ulcer of unspecified part of left lower leg with fat layer exposed (7) Localized edema: CODE(S): R60.0 - Localized edema PLAN: I reviewed and discussed this case with the patient. Debridement was performed as noted in the clinical panel including medial forefoot. It is noted his ulcer has reoccurred. The following recommendations and work-up was performed: Dressing: hydrogel daily bilateral Wash: Antibacterial soap and water Offload: Surgical shoe with medial fabric removed to take pressure off the ulcer site. He already has this. to avoid laying directly on the left posterior leg. Vascular: It is also noted he has a history of vascular disease with occlusive disease identified even with his updated noninvasive vascular studies performed in early September 2019. Arterial intervention was not planned at the time I was providing care about 1 year ago. I reviewed his noninvasive vascular studies and he does have reduced toe brachial index of about 0.52 on the right. Over updated referral to vascular specialist to see if additional work-up, imaging or intervention is an option at this time due to his recurrent ulcer status. He also has venous disease and had prior intervention with Dr. Calvillo for this condition. To did recently follow up. Testing was completed and he is in the process of scheduling a followup. I will follow along. Edema: Tubigrip with periodic elevation right lower extremity Infection: He was reassured there is no deep tissue exposure signs of local infection noted today. To monitor. Pain: Not present due to neuropathic status Host factors: To continue to monitor and improved glucose levels due to his diabetes status. I recommended nutritional supplementation including Lalo to optimize healing. Diagnostic data: I recommend he updates a right foot x-ray and this was reviewed without acute findings, foreign body, soft tissue emphysema or osseous destruction. I would also like to update his labs to get it idea of his baseline medical status. His last A1c on file was 7.1%. I answered all the patient's questions. To return to the wound healing center in 1 week or call sooner if the patient has any questions or concerns. Note: [employer] speech recognition space operations officer software was used to create portions of this document. Sound-alike and misspelled words, as well as other space operations officer errors may be contained in the documentation. The medical decision making level is low. There is noted low risk of morbidity after considering this treatment plan and diagnostic data. The problems addressed require a low medical decision making level which includes two or more minor problems, a stable chronic illness, or an acute uncomplicated illness or injury.
[2022-01-04 12:59] VITALS: BP 135/64; PULSE 70; RESP 16; TEMP 35.8
--- NOTE | 2022-01-04 15:37 | PCM.WC.PN ---
History of Present Illness Date of Service: 01/04/22 Chief Complaint: right foot ulcer History of Wound: Follow-up appointment is still pending. This 76-year-old male returns to the wound healing clinic for reoccurrence of a right medial foot ulcer. He has been changing the dressing with Aquacel Ag and the ulcer site is dry. He denies redness or odor. He denies fevers, chills, nausea, vomiting, diarrhea, loss of appetite. He has completed prior limb venous intervention with Dr. Calvillo. He had an additional follow up on November 23; updated tests were ordered. He denies redness or odor. He had an offloading surgical shoe and tries to keep weight on the heel. He is with his family member today. Progress of Wound: improving Objective Data Objective Data Vital Signs: Vital Signs Temp Pulse Resp BP 96.4 F L 70 16 135/64 H 01/04/22 12:59 01/04/22 12:59 01/04/22 12:59 01/04/22 12:59 Oxygen Delivery Method Room Air Physical Exam Const alert and oriented x3 General Appearance: cooperative HEENT normocephalic Extremity Extremity Narrative: No calf tenderness Diminished pulses Muscle wasting noted General Extremity: edema and no tenderness to palpation of joints or extremities; Negative for cyanosis Skin Skin Narrative: no purulence, no streaking, no odor, no infection. Return skin discontinuity to medial first metatarsal head with granular base. There is no exposed capsule, bone or other deep tissue. No eschar or necrosis. No erythema. The adjacent skin is very hairless and atrophic. no maceration noted. General Skin Exam: Negative for erythema Neuro Neuro Narrative: lack of normal epicritic sensation via light touch is consistent with neuropathy status Psych cooperative and affect normal Debridement Note Debridement Note Wound debrided: right medial forefoot ulcer Wound Grade/Stage: 1 Type of Debridement: Excisional debridement Anesthesia Used: 4% Lidocaine Solution Depth: in the subcutaneous layer Percentage of wound debrided: 100 Instrument Used: #15 blade Tissue Removed: fibrous, devitalized subcutaneous, biofilm, slough Severity: Fat Layer Exposed Amount of bleeding with debridement: Mild Bleeding Controlled with: Pressure Patient tolerated procedure: Patient tolerated procedure well Post-Debridement Measurements and Additional Note: Post-Debridement Measurements/Treatment WC - Nurse 1 - General Ulcer Assessment Start: 12/21/21 13:10 Freq: Status: Active Protocol: HEMA Activity Type Activity Date Activity User E-Sign Co-Sign Detail Recorded Client Recorded Date Recorded By Document 12/21/21 13:10 [id number] 12/21/21 13:12 KR Document 01/04/22 12:59 [facility] [id number] 01/04/22 13:03 [facility] 12/21/21 01/04/22 13:10 12:59 - Today's Visit Information Type of service Follow-up Visit Follow-up Visit (Physician/LARDER COOK (Physician/LARDER COOK ) ) Arrival Mode Ambulatory,Cane Ambulatory,Cane Transfer Assistance None Accompanied by daughter yany in law Patient Identification Verified (Name & Yes Yes ) Patient Requires Transmission-Based No Precautions Vital Signs Temperature (97.8 F-99.1 F) 97.0 F L 96.4 F L Temperature Source Temporal Temporal Pulse Rate (60-100) 88 70 Pulse Location Monitor Monitor Respiratory Rate (12-18) 16 Respiratory rate source Observation Oxygen Delivery Method Room Air Blood Pressure (90/60-120/80) 173/62 H 135/64 H Blood Pressure Mean (mm Hg) 99 87 Source Monitor Monitor Position Sitting Sitting Blood Pressure Location Left Arm Left Arm History Since Last Visit- (Skip if this is Patient's initial visit) Have you changed medications since your No No last visit? Any new allergies or adverse reactions No No Had a fall/change in ADL's that may No No increase risk of falls Signs or symptoms of abuse and/or No No neglect since last visit Have you been in the hospital since your No No last visit? Has dressing in place as prescribed Yes Yes Has compression in place as prescribed N/A N/A Has offloadiing in place as prescribed Yes Yes Experienced any changes in pain level or No No management Left Footwear Regular Shoe Regular Shoe Right Footwear Surgical Shoe Surgical Shoe with pressure with pressure relief insole relief insole Pain Scale: 0-10 Numeric Is Patient Pain Free? Yes Yes - Nurse 1 - General Ulcer Measurement Start: 12/21/21 13:10 Freq: Status: Active Protocol: Activity Type Activity Date Activity User E-Sign Co-Sign Detail Recorded Client Recorded Date Recorded By Document 12/21/21 13:10 [id number] 12/21/21 13:12 KR Document 01/04/22 12:59 [facility] [id number] 01/04/22 13:03 BM 12/21/21 01/04/22 13:10 12:59 Wound Center Nurse 1 10-left medial leg ulcer cluster -Combined with other wound No -Current Size (cm) - Length 0 -Current Size (cm) - Width 0 -Current Size (cm) - Depth 0 -Total Square Cm 0 -Date of Last Picture (Recall this 01/04/22 field) -Epithelialization Large 67-100% #9 Right Inferior Hallux -Combined with other wound No -Current Size (cm) - Length 0.3 0.2 -Current Size (cm) - Width 0.3 0.2 -Current Size (cm) - Depth 0.2 0.2 -Total Square Cm 0.09 0.04 -Date of Last Picture (Recall this 01/04/22 field) -Photo Taken Yes -Epithelialization Small 1-33% -Tunneling No -Undermining/Tunneling No -Circular Undermining No -Exudate Amt Small None Present -Exudate Type Serosanguineous -Wound Margin Distinct, Distinct, Outline Outline Attached Attached -Granulation Amt Small (1-33%) Large (67-100%) -Granulation Quality [place] -Slough/Fibrin No -Necrosis Amt None Present (0 %) -Texture (Anna-wound Skin Appearance) Assessed,Callus Assessed,Callus ,Scarring ,Scarring -Moisture (Anna-wound Skin Appearance) No Abnormality, Assessed Assessed -Color (Anna-wound Skin Appearance) No Abnormality, Assessed Assessed -Temperature (Anna-wound Skin No Abnormality No Abnormality Appearance) (Pt Warm) (Pt Warm) -Tenderness on Palpation (Anna-wound No No Skin Appearance) -Ulcer Cleansing Rinsed/ Rinsed/ Irrigated with Irrigated with Saline Saline -Foul Odor after Cleansing No No -Anesthetic Used 5% Lidocaine 5% Lidocaine Gel Gel WC - Nurse 2 - General Ulcer CM Notes Start: 12/21/21 13:10 Freq: Status: Active Protocol: Activity Type Activity Date Activity User E-Sign Co-Sign Detail Recorded Client Recorded Date Recorded By Document 12/21/21 13:27 DORA [id number] 12/21/21 13:37 JF Edit Result 12/21/21 13:27 JF (1) [id number] 12/22/21 06:52 PL Document 01/04/22 13:16 [id number] 01/04/22 13:23 JF (1) #9 Right Inferior Hallux - Debridement - Subq, 1st 20sq cm Yes => No 12/21/21 01/04/22 13:27 13:16 Wound Center Nurse 2 10-left medial leg ulcer cluster -Time 13:31 -Correct Patient Yes No -Correct Side, Site, Position Yes No -Correct Procedure Yes No -Procedure Performed Yes No -Type of Procedure Debridement -Clinical Debridement Subcutaneous -Tissue Removed Subcutaneous -Post Debridement (cm) - Length 1.6 -Post Debridement (cm) - Width 0.7 -Post Debridement (cm) - Depth 0.2 -Total Square (Post) (cm) 1.12 -Area of Debridement (cm) - Length 1.6 -Area of Debridement (cm) - Width 0.7 -Total Square (Area) (cm) 1.12 -Tunneling No -Undermining/Tunneling No -Circular Undermining No -Wound/Ulcer Outcome Not Healed Healed- Epithelialized -Ulcer Cleansing Rinsed/ Irrigated with Saline -Foul Odor after Cleansing No -Bioengineered Tissue No -Bleeding Controlled with Pressure -Treatment Response Procedure Tolerated Well -Offloading No -Debridement - Subq, 1st 20sq cm Yes #9 Right Inferior Hallux -Time 13:28 13:17 -Correct Patient Yes Yes -Correct Side, Site, Position Yes Yes -Correct Procedure Yes Yes -Procedure Performed Yes Yes -Type of Procedure Debridement Debridement -Clinical Debridement Subcutaneous Subcutaneous -Tissue Removed Subcutaneous Subcutaneous -Post Debridement (cm) - Length 0.6 0.3 -Post Debridement (cm) - Width 0.5 0.2 -Post Debridement (cm) - Depth 0.2 0.1 -Total Square (Post) (cm) 0.30 0.06 -Area of Debridement (cm) - Length 0.6 0.3 -Area of Debridement (cm) - Width 0.5 0.2 -Total Square (Area) (cm) 0.30 0.06 -Tunneling No No -Undermining/Tunneling No No -Circular Undermining No No -Wound/Ulcer Outcome Not Healed Not Healed -Ulcer Cleansing Rinsed/ Rinsed/ Irrigated with Irrigated with Saline Saline -Foul Odor after Cleansing No No -Bioengineered Tissue No No -Bleeding Controlled with Pressure Pressure -Treatment Response Procedure Procedure Tolerated Well Tolerated Well -Offloading Yes Yes -Type of Offloading Surgical Shoe Surgical Shoe -Debridement - Subq, 1st 20sq cm No Yes Pain Scale: 0-10 Numeric Is Patient Pain Free? Yes Yes - Nurse 3 - General Ulcer D/C NN Start: 12/21/21 13:10 Freq: Status: Active Protocol: Activity Type Activity Date Activity User E-Sign Co-Sign Detail Recorded Client Recorded Date Recorded By Document 12/21/21 13:41 AK [id number] 12/21/21 13:42 AK Document 01/04/22 13:23 JF [id number] 01/04/22 13:23 JF 12/21/21 01/04/22 13:41 13:23 Wound Care Nurse 3 10-left medial leg ulcer cluster -Ulcer Cleansing Rinsed/ Irrigated with Saline -Foul Odor after Cleansing No -Negative Pressure Wound Therapy N/A -Primary Dressing Applied C Hydrogel ($), Mepilex Border -Mepilex Border 1 #9 Right Inferior Hallux -Ulcer Cleansing Rinsed/ Rinsed/ Irrigated with Irrigated with Saline Saline -Foul Odor after Cleansing No No -Negative Pressure Wound Therapy N/A -Primary Dressing Applied C Hydrogel ($) C Hydrogel ($), Mepilex Border -Primary Dressing Covered/Secured with Dry Gauze & Roll Gauze, Secured with Tape -Mepilex Border 1 Pain Scale: 0-10 Numeric Is Patient Pain Free? Yes Yes - Visit Discharge Discharge Condition Stable Stable Ambulatory Status Ambulatory,Cane Ambulatory,Cane Transportation Private Auto Private Auto Accompanied by daughter LUPE Medication Reconcilliation completed & Yes Yes provided to patient/care provider Clinical Summary of Care Provided Yes Yes Assessment/Plan Assessment/Plan (1) Ulcer of right foot with fat layer exposed: CODE(S): L97.512 - Non-pressure chronic ulcer of other part of right foot with fat layer exposed (2) Peripheral vascular occlusive disease: CODE(S): I73.9 - Peripheral vascular disease, unspecified (3) Type 2 diabetes mellitus with diabetic polyneuropathy: CODE(S): E11.42 - Type 2 diabetes mellitus with diabetic polyneuropathy (4) Malnutrition: CODE(S): E46 - Unspecified protein-calorie malnutrition (5) Venous insufficiency: (6) Ulcer of left lower extremity with fat layer exposed: CODE(S): L97.922 - Non-pressure chronic ulcer of unspecified part of left lower leg with fat layer exposed (7) Localized edema: CODE(S): R60.0 - Localized edema PLAN: I reviewed and discussed this case with the patient. Debridement was performed as noted in the clinical panel including medial forefoot. It is noted his ulcer has reoccurred. The following recommendations and work-up was performed: Dressing: hydrogel daily bilateral Wash: Antibacterial soap and water Offload: Surgical shoe with medial fabric removed to take pressure off the ulcer site. He already has this. to avoid laying directly on the left posterior leg. Vascular: It is also noted he has a history of vascular disease with occlusive disease identified even with his updated noninvasive vascular studies performed in early September 2019. Arterial intervention was not planned at the time I was providing care about 1 year ago. I reviewed his noninvasive vascular studies and he does have reduced toe brachial index of about 0.52 on the right. Over updated referral to vascular specialist to see if additional work-up, imaging or intervention is an option at this time due to his recurrent ulcer status. He also has venous disease and had prior intervention with Dr. Calvillo for this condition. To did recently follow up. Testing was completed and he is in the process of scheduling a followup. I will follow along. Edema: Tubigrip with periodic elevation right lower extremity Infection: He was reassured there is no deep tissue exposure signs of local infection noted today. To monitor. Pain: Not present due to neuropathic status Host factors: To continue to monitor and improved glucose levels due to his diabetes status. I recommended nutritional supplementation including Lalo to optimize healing. Diagnostic data: I recommend he updates a right foot x-ray and this was reviewed without acute findings, foreign body, soft tissue emphysema or osseous destruction. I would also like to update his labs to get it idea of his baseline medical status. His last A1c on file was 7.1%. I answered all the patient's questions. To return to the wound healing center in 1 week or call sooner if the patient has any questions or concerns. Note: [employer] speech recognition expeditionary fighting vehicle crewman software was used to create portions of this document. Sound-alike and misspelled words, as well as other expeditionary fighting vehicle crewman errors may be contained in the documentation.
== END 2022-01-17 23:59 | disposition home or self-care (01) ==
LOC: WC 13:00
PROVIDERS: PCP Family Medicine; Visit Provider Podiatrist
DX: E11.621 Type 2 diabetes mellitus with foot ulcer (principal); E11.622 Type 2 diabetes mellitus with other skin ulcer; E11.51 Type 2 diabetes mellitus with diabetic peripheral angiopathy without gangrene; L97.822 Non-pressure chronic ulcer of other part of left lower leg with fat layer exposed; L97.512 Non-pressure chronic ulcer of other part of right foot with fat layer exposed; E11.59 Type 2 diabetes mellitus with other circulatory complications; E11.42 Type 2 diabetes mellitus with diabetic polyneuropathy; R60.0 Localized edema; I87.2 Venous insufficiency (chronic) (peripheral)
CPT/HCPCS: 11042

== ENCOUNTER 2022-02-08 13:00 | Outpatient (RCR) | payer MEDICARE, OTHER, SELFPAY ==
[2022-01-18 00:55] VITALS: BP 135/64; PULSE 70; RESP 16; TEMP 35.8
[2022-01-18 13:19] VITALS: BP 146/40; PULSE 78; RESP 16; TEMP 36.3
--- NOTE | 2022-01-18 13:51 | PCM.WC.PN ---
History of Present Illness Date of Service: 01/18/22 Chief Complaint: right foot ulcer History of Wound: Follow-up appointment is still pending. This 77-year-old male returns to the wound healing clinic for reoccurrence of a right medial foot ulcer. He has been changing the dressing with Aquacel Ag and the ulcer site is dry. He denies redness or odor. He denies fevers, chills, nausea, vomiting, diarrhea, loss of appetite. He has completed prior limb venous intervention with Dr. Calvillo. He had an additional follow up on November 23; updated tests were ordered. Additional intervention was not recommended. He denies redness or odor. He had an offloading surgical shoe and tries to keep weight on the heel. He is with his family member today. Progress of Wound: improving quality Objective Data Objective Data Vital Signs: Vital Signs Temp Pulse Resp BP 97.3 F L 78 16 146/40 H 01/18/22 13:19 01/18/22 13:19 01/18/22 13:19 01/18/22 13:19 Oxygen Delivery Method Room Air Physical Exam Const alert and oriented x3 General Appearance: cooperative HEENT normocephalic Extremity Extremity Narrative: No calf tenderness Diminished pulses Muscle wasting noted General Extremity: edema and no tenderness to palpation of joints or extremities; Negative for cyanosis Skin Skin Narrative: no purulence, no streaking, no odor, no infection. Return skin discontinuity to medial first metatarsal head with granular base. There is no exposed capsule, bone or other deep tissue. No eschar or necrosis. No erythema. The adjacent skin is very hairless and atrophic. no maceration noted. General Skin Exam: Negative for erythema Neuro Neuro Narrative: lack of normal epicritic sensation via light touch is consistent with neuropathy status Psych cooperative and affect normal Debridement Note Debridement Note Wound debrided: medial right forefoot Wound Grade/Stage: 1 Type of Debridement: Excisional debridement Anesthesia Used: 4% Lidocaine Solution Depth: in the subcutaneous layer Percentage of wound debrided: 100 Instrument Used: #15 blade Tissue Removed: fibrous, devitalized subcutaneous, biofilm, slough Severity: Fat Layer Exposed Amount of bleeding with debridement: Mild Bleeding Controlled with: Pressure Patient tolerated procedure: Patient tolerated procedure well Post-Debridement Measurements and Additional Note: Post-Debridement Measurements/Treatment WC - Nurse 1 - General Ulcer Assessment Start: 01/18/22 13:19 Freq: Status: Active Protocol: HEMA Activity Type Activity Date Activity User E-Sign Co-Sign Detail Recorded Client Recorded Date Recorded By Document 01/18/22 13:19 [facility] [id number] 01/18/22 13:23 [facility] 01/18/22 13:19 - Today's Visit Information Type of service Follow-up Visit (Physician/COOPERATIVE EDUCATION COORDINATOR ) Arrival Mode Ambulatory,Cane Transfer Assistance None Accompanied by WEI IN LAW Patient Identification Verified (Name & Yes ) Patient Requires Transmission-Based No Precautions Vital Signs Temperature (97.8 F-99.1 F) 97.3 F L Temperature Source Temporal Pulse Rate (60-100) 78 Pulse Location Monitor Respiratory Rate (12-18) 16 Respiratory rate source Observation Oxygen Delivery Method Room Air Blood Pressure (90/60-120/80) 146/40 H Blood Pressure Mean (mm Hg) 75 Source Monitor Position Sitting Blood Pressure Location Left Arm History Since Last Visit- (Skip if this is Patient's initial visit) Have you changed medications since your No last visit? Any new allergies or adverse reactions No Had a fall/change in ADL's that may No increase risk of falls Signs or symptoms of abuse and/or No neglect since last visit Have you been in the hospital since your No last visit? Has dressing in place as prescribed Yes Has compression in place as prescribed N/A Has offloadiing in place as prescribed N/A Experienced any changes in pain level or No management Left Footwear Regular Shoe Right Footwear Surgical Shoe with pressure relief insole Pain Scale: 0-10 Numeric Is Patient Pain Free? Yes - Nurse 1 - General Ulcer Measurement Start: 01/18/22 13:19 Freq: Status: Active Protocol: Activity Type Activity Date Activity User E-Sign Co-Sign Detail Recorded Client Recorded Date Recorded By Document 01/18/22 13:19 [facility] [id number] 01/18/22 13:23 [facility] 01/18/22 13:19 Wound Center Nurse 1 #9 Right Inferior Hallux -Combined with other wound No -Current Size (cm) - Length 0.2 -Current Size (cm) - Width 0.3 -Current Size (cm) - Depth 0.3 -Total Square Cm 0.06 -Photo Taken No -Epithelialization None Present -Tunneling No -Undermining/Tunneling No -Circular Undermining No -Exudate Amt Small -Exudate Type Serous -Wound Margin Distinct, Outline Attached -Granulation Amt Large (67-100%) -Granulation Quality [place] -Slough/Fibrin No -Necrosis Amt None Present (0 %) -Texture (Anna-wound Skin Appearance) Assessed -Moisture (Anna-wound Skin Appearance) Assessed,Dry/ Scaly -Color (Anna-wound Skin Appearance) Assessed -Temperature (Anna-wound Skin No Abnormality Appearance) (Pt Warm) -Tenderness on Palpation (Anna-wound No Skin Appearance) -Ulcer Cleansing Rinsed/ Irrigated with Saline -Foul Odor after Cleansing No -Anesthetic Used 5% Lidocaine Gel WC - Nurse 2 - General Ulcer CM Notes Start: 01/18/22 13:19 Freq: Status: Active Protocol: Activity Type Activity Date Activity User E-Sign Co-Sign Detail Recorded Client Recorded Date Recorded By Document 01/18/22 13:35 [id number] 01/18/22 13:37 DORA 01/18/22 13:35 Wound Center Nurse 2 -Time 13:35 -Correct Patient Yes -Correct Side, Site, Position Yes -Correct Procedure Yes -Procedure Performed Yes -Type of Procedure Debridement -Clinical Debridement Subcutaneous -Tissue Removed Subcutaneous -Post Debridement (cm) - Length 0.5 -Post Debridement (cm) - Width 0.4 -Post Debridement (cm) - Depth 0.1 -Total Square (Post) (cm) 0.20 -Area of Debridement (cm) - Length 0.5 -Area of Debridement (cm) - Width 0.4 -Total Square (Area) (cm) 0.20 -Tunneling No -Undermining/Tunneling No -Circular Undermining No -Wound/Ulcer Outcome Not Healed -Ulcer Cleansing Rinsed/ Irrigated with Saline -Foul Odor after Cleansing No -Bioengineered Tissue No -Bleeding Controlled with Pressure -Treatment Response Procedure Tolerated Well -Offloading Yes -Type of Offloading Surgical Shoe -Debridement - Subq, 1st 20sq cm Yes Pain Scale: 0-10 Numeric Is Patient Pain Free? Yes Assessment/Plan Assessment/Plan (1) Ulcer of right foot with fat layer exposed: CODE(S): L97.512 - Non-pressure chronic ulcer of other part of right foot with fat layer exposed (2) Peripheral vascular occlusive disease: CODE(S): I73.9 - Peripheral vascular disease, unspecified (3) Type 2 diabetes mellitus with diabetic polyneuropathy: CODE(S): E11.42 - Type 2 diabetes mellitus with diabetic polyneuropathy (4) Malnutrition: CODE(S): E46 - Unspecified protein-calorie malnutrition (5) Venous insufficiency: (6) Localized edema: CODE(S): R60.0 - Localized edema PLAN: I reviewed and discussed this case with the patient. Debridement was performed as noted in the clinical panel including medial forefoot. It is noted his ulcer has reoccurred. The following recommendations and work-up was performed: Dressing: hydrogel daily bilateral Wash: Antibacterial soap and water Offload: Surgical shoe with medial fabric was readjusted today to take pressure off the ulcer site. to avoid direct pressure to ulcer site. Vascular: It is also noted he has a history of vascular disease with occlusive disease identified even with his updated noninvasive vascular studies performed in early September 2019. Arterial intervention was not planned at the time I was providing care about 1 year ago. I reviewed his noninvasive vascular studies and he does have reduced toe brachial index of about 0.52 on the right. Over updated referral to vascular specialist to see if additional work-up, imaging or intervention is an option at this time due to his recurrent ulcer status. He also has venous disease and had prior intervention with Dr. Calvillo for this condition. To did recently follow up. Testing was completed and he is in the process of scheduling a followup. Additional intervention was not recommended. Edema: Tubigrip with periodic elevation right lower extremity Infection: He was reassured there is no deep tissue exposure signs of local infection noted today. To monitor. Pain: Not present due to neuropathic status Host factors: To continue to monitor and improved glucose levels due to his diabetes status. I recommended nutritional supplementation including Lalo to optimize healing. Diagnostic data: I recommend he updates a right foot x-ray and this was reviewed without acute findings, foreign body, soft tissue emphysema or osseous destruction. I would also like to update his labs to get it idea of his baseline medical status. His last A1c on file was 7.1%. I answered all the patient's questions. To return to the wound healing center in 1 week or call sooner if the patient has any questions or concerns. Note: [employer] speech recognition climate change analyst software was used to create portions of this document. Sound-alike and misspelled words, as well as other climate change analyst errors may be contained in the documentation.
[2022-02-08 13:06] VITALS: BP 131/63; PULSE 83; RESP 20; TEMP 36.7
--- NOTE | 2022-02-08 15:21 | PCM.WC.PN ---
History of Present Illness Date of Service: 02/08/22 Chief Complaint: right foot ulcer History of Wound: This 77-year-old male returns to the wound healing clinic for reoccurrence of a right medial foot ulcer. He has been changing the dressing with Aquacel Ag and the ulcer site is dry. He denies redness or odor. He denies fevers, chills, nausea, vomiting, diarrhea, loss of appetite. He has completed prior limb venous intervention with Dr. Calvillo. Additional intervention was not recommended. He denies redness or odor. He had an offloading surgical shoe and tries to keep weight on the heel. He is with his family member today. He is doing well. Progress of Wound: improving quality Objective Data Objective Data Vital Signs: Vital Signs Temp Pulse Resp BP 98.1 F 83 20 H 131/63 H 02/08/22 13:06 02/08/22 13:06 02/08/22 13:06 02/08/22 13:06 Oxygen Delivery Method Room Air Physical Exam Const alert and oriented x3 General Appearance: cooperative HEENT normocephalic Extremity Extremity Narrative: No calf tenderness Diminished pulses Muscle wasting noted General Extremity: edema and no tenderness to palpation of joints or extremities; Negative for cyanosis Skin Skin Narrative: no purulence, no streaking, no odor, no infection. Return skin discontinuity to medial first metatarsal head with granular base. There is no exposed capsule, bone or other deep tissue. No eschar or necrosis. No erythema. The adjacent skin is very hairless and atrophic. no maceration noted. General Skin Exam: Negative for erythema Neuro Neuro Narrative: lack of normal epicritic sensation via light touch is consistent with neuropathy status Psych cooperative and affect normal Debridement Note Debridement Note Wound debrided: medial right forefoot Wound Grade/Stage: 1 Type of Debridement: Excisional debridement Anesthesia Used: 4% Lidocaine Solution Depth: in the subcutaneous layer Percentage of wound debrided: 100 Instrument Used: #15 blade Tissue Removed: fibrous, devitalized subcutaneous, biofilm, slough Severity: Fat Layer Exposed Amount of bleeding with debridement: Mild Bleeding Controlled with: Pressure Patient tolerated procedure: Patient tolerated procedure well Post-Debridement Measurements and Additional Note: Post-Debridement Measurements/Treatment URBAN - Nurse 1 - General Ulcer Assessment Start: 01/18/22 13:19 Freq: Status: Active Protocol: WC.LOWEXT Activity Type Activity Date Activity User E-sign Co-sign Detail Recorded Client Recorded Date Recorded By Document 01/18/22 13:19 [facility] [id number] 01/18/22 13:23 [facility] Document 02/08/22 13:06 [facility] [id number] 02/08/22 13:11 [facility] 01/18/22 02/08/22 13:19 13:06 - Today's Visit Information Type of service Follow-up Visit Follow-up Visit (Physician/[employer] MANAGER (Physician/[employer]ENT[employer] MANAGER ) ) Arrival Mode Ambulatory,Cane Ambulatory Transfer Assistance None None Accompanied by WEI IN LAW wei in law Patient Identification Verified (Name & Yes Yes ) Patient Requires Transmission-Based No No Precautions Vital Signs Temperature (97.8 F-99.1 F) 97.3 F L 98.1 F Temperature Source Temporal Temporal Pulse Rate (60-100) 78 83 Pulse Location Monitor Monitor Respiratory Rate (12-18) 16 20 H Respiratory rate source Observation Observation Oxygen Delivery Method Room Air Room Air Blood Pressure (90/60-120/80) 146/40 H 131/63 H Blood Pressure Mean (mm Hg) 75 85 Source Monitor Monitor Position Sitting Sitting Blood Pressure Location Left Arm Left Arm History Since Last Visit- (Skip if this is Patient's initial visit) Have you changed medications since your No No last visit? Any new allergies or adverse reactions No No Had a fall/change in ADL's that may No No increase risk of falls Signs or symptoms of abuse and/or No neglect since last visit Have you been in the hospital since your No No last visit? Has dressing in place as prescribed Yes Yes Has compression in place as prescribed N/A N/A Has offloadiing in place as prescribed N/A Yes Experienced any changes in pain level or No No management Left Footwear Regular Shoe Regular Shoe Right Footwear Surgical Shoe Surgical Shoe with pressure with pressure relief insole relief insole Pain Scale: 0-10 Numeric Is Patient Pain Free? Yes Yes - Nurse 1 - General Ulcer Measurement Start: 01/18/22 13:19 Freq: Status: Active Protocol: Activity Type Activity Date Activity User E-sign Co-sign Detail Recorded Client Recorded Date Recorded By Document 01/18/22 13:19 [facility] [id number] 01/18/22 13:23 [facility] Document 02/08/22 13:06 [facility] [id number] 02/08/22 13:11 [facility] 01/18/22 02/08/22 13:19 13:06 Wound Center Nurse 1 #9 Right Inferior Hallux -Combined with other wound No No -Current Size (cm) - Length 0.2 0.1 -Current Size (cm) - Width 0.3 0.3 -Current Size (cm) - Depth 0.3 0.3 -Total Square Cm 0.06 0.03 -Date of Last Picture (Recall this 02/08/22 field) -Photo Taken No Yes -Epithelialization None Present None Present -Tunneling No No -Undermining/Tunneling No Yes -Undermining/Tunneling Starts (O'clock 3 ) -Undermining/Tunneling Ends (O'clock) 11 -Maximum Distance (cm) 0.3 -Circular Undermining No -Exudate Amt Small Small -Exudate Type Serous Serosanguineous -Wound Margin Distinct, Distinct, Outline Outline Attached Attached -Granulation Amt Large (67-100%) Large (67-100%) -Granulation Quality [place] -Slough/Fibrin No Yes -Necrosis Amt None Present (0 Small (1-33%) %) -Necrotic Tissue Type Adherent Slough -Texture (Anna-wound Skin Appearance) Assessed Assessed,Callus -Moisture (Anna-wound Skin Appearance) Assessed,Dry/ Assessed Scaly -Color (Anna-wound Skin Appearance) Assessed Assessed -Temperature (Anna-wound Skin No Abnormality No Abnormality Appearance) (Pt Warm) (Pt Warm) -Tenderness on Palpation (Anna-wound No No Skin Appearance) -Ulcer Cleansing Rinsed/ Rinsed/ Irrigated with Irrigated with Saline Saline -Foul Odor after Cleansing No No -Anesthetic Used 5% Lidocaine 5% Lidocaine Gel Gel WC - Nurse 2 - General Ulcer CM Notes Start: 01/18/22 13:19 Freq: Status: Active Protocol: Activity Type Activity Date Activity User E-sign Co-sign Detail Recorded Client Recorded Date Recorded By Document 01/18/22 13:35 [id number] 01/18/22 13:37 Document 02/08/22 13:22 [id number] 02/08/22 13:24 06/01/22 06/22/22 13:35 13:22 Wound Center Nurse 2 #9 Right Inferior Hallux -Time 13:35 13:22 -Correct Patient Yes Yes -Correct Side, Site, Position Yes Yes -Correct Procedure Yes Yes -Procedure Performed Yes Yes -Type of Procedure Debridement Debridement -Clinical Debridement Subcutaneous Subcutaneous -Tissue Removed Subcutaneous Subcutaneous -Post Debridement (cm) - Length 0.5 0.3 -Post Debridement (cm) - Width 0.4 0.4 -Post Debridement (cm) - Depth 0.1 0.2 -Total Square (Post) (cm) 0.20 0.12 -Area of Debridement (cm) - Length 0.5 0.3 -Area of Debridement (cm) - Width 0.4 0.4 -Total Square (Area) (cm) 0.20 0.12 -Tunneling No No -Undermining/Tunneling No No -Circular Undermining No No -Wound/Ulcer Outcome Not Healed Not Healed -Ulcer Cleansing Rinsed/ Rinsed/ Irrigated with Irrigated with Saline Saline -Foul Odor after Cleansing No Yes, Due to Product Use -Bioengineered Tissue No No -Bleeding Controlled with Pressure Pressure -Treatment Response Procedure Procedure Tolerated Well Tolerated Well -Offloading Yes Yes -Type of Offloading Surgical Shoe Surgical Shoe -Debridement - Subq, 1st 20sq cm Yes Yes Pain Scale: 0-10 Numeric Is Patient Pain Free? Yes Yes - Nurse 3 - General Ulcer D/C NN Start: 01/18/22 13:19 Freq: Status: Active Protocol: Activity Type Activity Date Activity User E-sign Co-sign Detail Recorded Client Recorded Date Recorded By Document 02/08/22 13:35 [facility] [id number] 02/08/22 13:36 [facility] 02/08/22 13:35 Wound Care Nurse 3 #9 Right Inferior Hallux -Ulcer Cleansing Rinsed/ Irrigated with Saline -Foul Odor after Cleansing No -Primary Dressing Applied Other -Other Dressing hydrogel -Primary Dressing Covered/Secured with Dry Gauze & Roll Gauze, Secured with Tape -Other Covering small foam sample Treatment Response Procedure Tolerated Well Pain Scale: 0-10 Numeric Is Patient Pain Free? Yes - Visit Discharge Discharge Condition Stable Ambulatory Status Ambulatory,Cane Transportation Private Auto Accompanied by wei in law Assessment/Plan Assessment/Plan (1) Ulcer of right foot with fat layer exposed: CODE(S): L97.512 - Non-pressure chronic ulcer of other part of right foot with fat layer exposed (2) Peripheral vascular occlusive disease: CODE(S): I73.9 - Peripheral vascular disease, unspecified (3) Type 2 diabetes mellitus with diabetic polyneuropathy: CODE(S): E11.42 - Type 2 diabetes mellitus with diabetic polyneuropathy (4) Malnutrition: CODE(S): E46 - Unspecified protein-calorie malnutrition (5) Venous insufficiency: (6) Localized edema: CODE(S): R60.0 - Localized edema PLAN: Plan I reviewed and discussed this case with the patient. Debridement was performed as noted in the clinical panel including medial forefoot. It is noted his ulcer has reoccurred. The following recommendations and work-up was performed: Dressing: hydrogel daily bilateral Wash: Antibacterial soap and water Offload: Surgical shoe with medial fabric was readjusted today to take pressure off the ulcer site. to avoid direct pressure to ulcer site. Vascular: It is also noted he has a history of vascular disease with occlusive disease identified even with his updated noninvasive vascular studies performed in early September 2019. Arterial intervention was not planned at the time I was providing care about 1 year ago. I reviewed his noninvasive vascular studies and he does have reduced toe brachial index of about 0.52 on the right. Over updated referral to vascular specialist to see if additional work-up, imaging or intervention is an option at this time due to his recurrent ulcer status. He also has venous disease and had prior intervention with Dr. Calvillo for this condition. To did recently follow up. Testing was completed and he is in the process of scheduling a followup. Additional intervention was not recommended. Edema: Tubigrip with periodic elevation right lower extremity Infection: He was reassured there is no deep tissue exposure signs of local infection noted today. To monitor. Pain: Not present due to neuropathic status Host factors: To continue to monitor and improved glucose levels due to his diabetes status. I recommended nutritional supplementation including Lalo to optimize healing. Diagnostic data: I recommend he updates a right foot x-ray and this was reviewed without acute findings, foreign body, soft tissue emphysema or osseous destruction. I would also like to update his labs to get it idea of his baseline medical status. His last A1c on file was 7.1%. I answered all the patient's questions. To return to the wound healing center in 1 week or call sooner if the patient has any questions or concerns. Note: [employer] speech recognition meal grinder tender software was used to create portions of this document. Sound-alike and misspelled words, as well as other meal grinder tender errors may be contained in the documentation.
== END 2022-02-16 23:59 | disposition home or self-care (01) ==
LOC: WC 13:00
PROVIDERS: PCP Family Medicine; Visit Provider Podiatrist
DX: E11.621 Type 2 diabetes mellitus with foot ulcer (principal); E11.51 Type 2 diabetes mellitus with diabetic peripheral angiopathy without gangrene; L97.512 Non-pressure chronic ulcer of other part of right foot with fat layer exposed; E11.59 Type 2 diabetes mellitus with other circulatory complications; E11.42 Type 2 diabetes mellitus with diabetic polyneuropathy; R60.0 Localized edema; I87.2 Venous insufficiency (chronic) (peripheral)
CPT/HCPCS: 11042

== ENCOUNTER 2022-03-01 13:09 | Outpatient (RCR) | payer MEDICARE, OTHER, SELFPAY ==
[2022-02-17 00:33] VITALS: BP 131/63; PULSE 83; RESP 20; TEMP 36.7
[2022-03-01 13:16] VITALS: BP 141/73; PULSE 70; RESP 18; TEMP 36.4
--- NOTE | 2022-03-01 19:47 | PCM.WC.PN ---
History of Present Illness Date of Service: 03/01/22 Chief Complaint: right foot ulcer History of Wound: This 77-year-old male returns to the wound healing clinic for reoccurrence of a right medial foot ulcer. He has been changing the dressing with Aquacel Ag and the ulcer site is dry. He denies redness or odor. He denies fevers, chills, nausea, vomiting, diarrhea, loss of appetite. He has completed prior limb venous intervention with Dr. Calvillo. Additional intervention was not recommended. He denies redness or odor. He had an offloading surgical shoe and tries to keep weight on the heel. He is with his family member today. He is doing well. Progress of Wound: improving Objective Data Objective Data Vital Signs: Vital Signs Temp Pulse Resp BP 97.6 F L 70 18 141/73 H 03/01/22 13:16 03/01/22 13:16 03/01/22 13:16 03/01/22 13:16 Physical Exam Const alert and oriented x3 General Appearance: cooperative HEENT normocephalic Extremity Extremity Narrative: No calf tenderness Diminished pulses Muscle wasting noted General Extremity: edema and no tenderness to palpation of joints or extremities; Negative for cyanosis Skin Skin Narrative: no purulence, no streaking, no odor, no infection. Return skin discontinuity to medial first metatarsal head with granular base. There is no exposed capsule, bone or other deep tissue. No eschar or necrosis. No erythema. The adjacent skin is very hairless and atrophic. no maceration noted. General Skin Exam: Negative for erythema Neuro Neuro Narrative: lack of normal epicritic sensation via light touch is consistent with neuropathy status Psych cooperative and affect normal Debridement Note Debridement Note Wound debrided: medial right forefoot Wound Grade/Stage: 1 Type of Debridement: Excisional debridement Anesthesia Used: 4% Lidocaine Solution Depth: in the subcutaneous layer Percentage of wound debrided: 100 Instrument Used: #15 blade Tissue Removed: fibrous, devitalized subcutaneous, biofilm, slough Severity: Fat Layer Exposed Amount of bleeding with debridement: Mild Bleeding Controlled with: Pressure Patient tolerated procedure: Patient tolerated procedure well Post-Debridement Measurements and Additional Note: Post-Debridement Measurements/Treatment URBAN - Nurse 1 - General Ulcer Assessment Start: 03/01/22 13:16 Freq: Status: Active Protocol: HEMA Activity Type Activity Date Activity User E-sign Co-sign Detail Recorded Client Recorded Date Recorded By Document 03/01/22 13:16 DL [id number] 03/01/22 13:20 03/01/22 13:16 WC - Today's Visit Information Type of service Follow-up Visit (Physician/PRECISION AGRICULTURE SPECIALIST ) Arrival Mode Ambulatory Transfer Assistance None Patient Identification Verified (Name & Yes ) Patient Requires Transmission-Based No Precautions Vital Signs Temperature (97.8 F-99.1 F) 97.6 F L Temperature Source Temporal Pulse Rate (60-100) 70 Pulse Location Monitor Respiratory Rate (12-18) 18 Respiratory rate source Observation Blood Pressure (90/60-120/80) 141/73 H Blood Pressure Mean (mm Hg) 95 Source Monitor History Since Last Visit- (Skip if this is Patient's initial visit) Have you changed medications since your No last visit? Any new allergies or adverse reactions No Had a fall/change in ADL's that may No increase risk of falls Signs or symptoms of abuse and/or No neglect since last visit Have you been in the hospital since your No last visit? Has dressing in place as prescribed Yes Has compression in place as prescribed Yes Has offloadiing in place as prescribed Yes Experienced any changes in pain level or No management Pain Scale: 0-10 Numeric Is Patient Pain Free? Yes - Nurse 1 - General Ulcer Measurement Start: 03/01/22 13:16 Freq: Status: Active Protocol: Activity Type Activity Date Activity User E-sign Co-sign Detail Recorded Client Recorded Date Recorded By Document 03/01/22 13:16 [id number] 03/01/22 13:20 03/01/22 13:16 Wound Center Nurse 1 #9 Right Inferior Hallux -Current Size (cm) - Length 0.2 -Current Size (cm) - Width 0.2 -Current Size (cm) - Depth 0.5 -Total Square Cm 0.04 -Photo Taken No -Exudate Amt None Present -Wound Margin Thickened -Granulation Amt Small (1-33%) -Granulation Quality Pale -Necrosis Amt Small (1-33%) -Necrotic Tissue Type Adherent Slough -Structure Exposed N/A -Texture (Anna-wound Skin Appearance) Callus -Moisture (Anna-wound Skin Appearance) Dry/Scaly -Color (Anna-wound Skin Appearance) No Abnormality -Temperature (Anna-wound Skin No Abnormality Appearance) (Pt Warm) -Tenderness on Palpation (Anna-wound No Skin Appearance) -Ulcer Cleansing Rinsed/ Irrigated with Saline -Foul Odor after Cleansing No -Anesthetic Used 5% Lidocaine Gel - Nurse 2 - General Ulcer CM Notes Start: 03/01/22 13:16 Freq: Status: Active Protocol: Activity Type Activity Date Activity User E-sign Co-sign Detail Recorded Client Recorded Date Recorded By Document 03/01/22 13:24 [id number] 03/01/22 13:27 03/01/22 13:24 Wound Center Nurse 2 -Time 13:25 -Correct Patient Yes -Correct Side, Site, Position Yes -Correct Procedure Yes -Procedure Performed Yes -Type of Procedure Debridement -Clinical Debridement Subcutaneous -Tissue Removed Subcutaneous -Post Debridement (cm) - Length 0.3 -Post Debridement (cm) - Width 0.6 -Post Debridement (cm) - Depth 0.1 -Total Square (Post) (cm) 0.18 -Area of Debridement (cm) - Length 0.3 -Area of Debridement (cm) - Width 0.6 -Total Square (Area) (cm) 0.18 -Tunneling No -Undermining/Tunneling No -Circular Undermining No -Wound/Ulcer Outcome Not Healed -Ulcer Cleansing Rinsed/ Irrigated with Saline -Foul Odor after Cleansing No -Bioengineered Tissue No -Bleeding Controlled with Pressure -Treatment Response Procedure Tolerated Well -Offloading Yes -Type of Offloading Surgical Shoe -Debridement - Subq, 1st 20sq cm Yes Pain Scale: 0-10 Numeric Is Patient Pain Free? Yes - Nurse 3 - General Ulcer D/C NN Start: 03/01/22 13:16 Freq: Status: Active Protocol: Activity Type Activity Date Activity User E-sign Co-sign Detail Recorded Client Recorded Date Recorded By Document 03/01/22 13:32 [id number] 03/01/22 13:32 03/01/22 13:32 Wound Care Nurse 3 #9 Right Inferior Hallux -Ulcer Cleansing Rinsed/ Irrigated with Saline -Foul Odor after Cleansing No -Primary Dressing Applied C Hydrogel ($), Mepilex Border -Mepilex Border 1 Pain Scale: 0-10 Numeric Is Patient Pain Free? Yes - Visit Discharge Discharge Condition Stable Ambulatory Status Ambulatory,Cane Transportation Private Auto Accompanied by LUPE Medication Reconcilliation completed & Yes provided to patient/care provider Clinical Summary of Care Provided Yes Assessment/Plan Assessment/Plan (1) Ulcer of right foot with fat layer exposed: CODE(S): L97.512 - Non-pressure chronic ulcer of other part of right foot with fat layer exposed (2) Peripheral vascular occlusive disease: CODE(S): I73.9 - Peripheral vascular disease, unspecified (3) Type 2 diabetes mellitus with diabetic polyneuropathy: CODE(S): E11.42 - Type 2 diabetes mellitus with diabetic polyneuropathy (4) Malnutrition: CODE(S): E46 - Unspecified protein-calorie malnutrition (5) Venous insufficiency: (6) Localized edema: CODE(S): R60.0 - Localized edema PLAN: Plan I reviewed and discussed this case with the patient. Debridement was performed as noted in the clinical panel including medial forefoot. It is noted his ulcer has reoccurred. The following recommendations and work-up was performed: Dressing: hydrogel daily bilateral Wash: Antibacterial soap and water Offload: Surgical shoe with medial fabric was readjusted today to take pressure off the ulcer site. to avoid direct pressure to ulcer site. Vascular: It is also noted he has a history of vascular disease with occlusive disease identified even with his updated noninvasive vascular studies performed in early September 2019. Arterial intervention was not planned at the time I was providing care about 1 year ago. I reviewed his noninvasive vascular studies and he does have reduced toe brachial index of about 0.52 on the right. Over updated referral to vascular specialist to see if additional work-up, imaging or intervention is an option at this time due to his recurrent ulcer status. He also has venous disease and had prior intervention with Dr. Calvillo for this condition. To did recently follow up. Testing was completed and he is in the process of scheduling a followup. Additional intervention was not recommended. Edema: Tubigrip with periodic elevation right lower extremity Infection: He was reassured there is no deep tissue exposure signs of local infection noted today. To monitor. Pain: Not present due to neuropathic status Host factors: To continue to monitor and improved glucose levels due to his diabetes status. I recommended nutritional supplementation including Lalo to optimize healing. Diagnostic data: I recommend he updates a right foot x-ray and this was reviewed without acute findings, foreign body, soft tissue emphysema or osseous destruction. I would also like to update his labs to get it idea of his baseline medical status. His last A1c on file was 7.1%. I answered all the patient's questions. To return to the wound healing center in 1 week or call sooner if the patient has any questions or concerns. Note: [employer] speech recognition gluing machine adjuster software was used to create portions of this document. Sound-alike and misspelled words, as well as other gluing machine adjuster errors may be contained in the documentation.
== END 2022-03-19 23:59 | disposition home or self-care (01) ==
LOC: WC 13:09
PROVIDERS: PCP Family Medicine; Visit Provider Podiatrist
DX: E11.621 Type 2 diabetes mellitus with foot ulcer (principal); E11.51 Type 2 diabetes mellitus with diabetic peripheral angiopathy without gangrene; L97.512 Non-pressure chronic ulcer of other part of right foot with fat layer exposed; E11.59 Type 2 diabetes mellitus with other circulatory complications; E11.42 Type 2 diabetes mellitus with diabetic polyneuropathy; I87.2 Venous insufficiency (chronic) (peripheral); R60.0 Localized edema
CPT/HCPCS: 11042

== ENCOUNTER 2022-04-12 13:45 | Outpatient (RCR) | payer MEDICARE, OTHER, SELFPAY ==
[2022-03-20 00:26] VITALS: BP 141/73; PULSE 70; RESP 18; TEMP 36.4
[2022-03-22 13:27] VITALS: BP 126/62; PULSE 78; RESP 18; TEMP 36
--- NOTE | 2022-03-22 15:41 | PCM.WC.PN ---
History of Present Illness Date of Service: 03/22/22 Chief Complaint: right foot ulcer History of Wound: This 77-year-old male returns to the wound healing clinic for reoccurrence of a right medial foot ulcer. He has been changing the dressing with Aquacel Ag and the ulcer site is dry. He denies redness or odor. He denies fevers, chills, nausea, vomiting, diarrhea, loss of appetite. He has completed prior limb venous intervention with Dr. Calvillo. Additional intervention was not recommended. He denies redness or odor. He had an offloading surgical shoe and tries to keep weight on the heel. He is with his family member today. He is doing well. Progress of Wound: improving Objective Data Objective Data Vital Signs: Vital Signs Temp Pulse Resp BP 96.8 F L 78 18 126/62 H 03/22/22 13:27 03/22/22 13:27 03/22/22 13:27 03/22/22 13:27 Physical Exam Const alert and oriented x3 Extremity Extremity Narrative: No calf tenderness Diminished pulses Muscle wasting noted General Extremity: edema and no tenderness to palpation of joints or extremities; Negative for cyanosis Skin Skin Narrative: no purulence, no streaking, no odor, no infection. Return skin discontinuity to medial first metatarsal head with granular base. There is no exposed capsule, bone or other deep tissue. No eschar or necrosis. No erythema. The adjacent skin is very hairless and atrophic. no maceration noted. General Skin Exam: Negative for erythema Neuro Neuro Narrative: lack of normal epicritic sensation via light touch is consistent with neuropathy status Psych cooperative Debridement Note Debridement Note Wound debrided: medial right forefoot Wound Grade/Stage: 1 Type of Debridement: Excisional debridement Anesthesia Used: 4% Lidocaine Solution Depth: in the subcutaneous layer Percentage of wound debrided: 100 Instrument Used: #15 blade Tissue Removed: fibrous, devitalized subcutaneous, biofilm, slough Severity: Fat Layer Exposed Amount of bleeding with debridement: Mild Bleeding Controlled with: Pressure Patient tolerated procedure: Patient tolerated procedure well Post-Debridement Measurements and Additional Note: Post-Debridement Measurements/Treatment URBAN - Nurse 1 - General Ulcer Assessment Start: 03/22/22 13:27 Freq: Status: Active Protocol: HEMA Activity Type Activity Date Activity User E-sign Co-sign Detail Recorded Client Recorded Date Recorded By Document 03/22/22 13:27 DL [id number] 03/22/22 13:30 DL 03/22/22 13:27 - Today's Visit Information Type of service Follow-up Visit (Physician/ENDOSCOPY SPECIALTY TECHNICIAN ) Arrival Mode Ambulatory Transfer Assistance None Patient Identification Verified (Name & Yes ) Patient Requires Transmission-Based No Precautions Vital Signs Temperature (97.8 F-99.1 F) 96.8 F L Temperature Source Temporal Pulse Rate (60-100) 78 Pulse Location Monitor Respiratory Rate (12-18) 18 Respiratory rate source Observation Blood Pressure (90/60-120/80) 126/62 H Blood Pressure Mean (mm Hg) 83 Source Monitor History Since Last Visit- (Skip if this is Patient's initial visit) Have you changed medications since your No last visit? Any new allergies or adverse reactions No Had a fall/change in ADL's that may No increase risk of falls Signs or symptoms of abuse and/or No neglect since last visit Have you been in the hospital since your No last visit? Has dressing in place as prescribed Yes Has compression in place as prescribed N/A Has offloadiing in place as prescribed Yes Experienced any changes in pain level or No management Right Footwear Surgical Shoe with pressure relief insole Pain Scale: 0-10 Numeric Is Patient Pain Free? Yes - Nurse 1 - General Ulcer Measurement Start: 03/22/22 13:27 Freq: Status: Active Protocol: Activity Type Activity Date Activity User E-sign Co-sign Detail Recorded Client Recorded Date Recorded By Document 03/22/22 13:27 DL [id number] 03/22/22 13:30 DL 03/22/22 13:27 Wound Center Nurse 1 #9 Right Inferior Hallux -Current Size (cm) - Length 0.1 -Current Size (cm) - Width 0.1 -Current Size (cm) - Depth 0.3 -Total Square Cm 0.01 -Photo Taken No -Maximum Distance #2 (cm) 0.2 -Circular Undermining Yes -Exudate Amt Small -Exudate Type Serosanguineous -Wound Margin Thickened -Granulation Amt Small (1-33%) -Granulation Quality [place] -Necrosis Amt None Present (0 %) -Texture (Anna-wound Skin Appearance) Callus,Scarring -Moisture (Anna-wound Skin Appearance) No Abnormality -Color (Anna-wound Skin Appearance) No Abnormality -Temperature (Anna-wound Skin No Abnormality Appearance) (Pt Warm) -Tenderness on Palpation (Anna-wound No Skin Appearance) -Ulcer Cleansing Rinsed/ Irrigated with Saline -Foul Odor after Cleansing No -Anesthetic Used 5% Lidocaine Gel URBAN - Nurse 2 - General Ulcer CM Notes Start: 03/22/22 13:27 Freq: Status: Active Protocol: Activity Type Activity Date Activity User E-sign Co-sign Detail Recorded Client Recorded Date Recorded By Document 03/22/22 13:43 [id number] 03/22/22 13:45 DORA 03/22/22 13:43 Wound Center Nurse 2 -Time 13:43 -Correct Patient Yes -Correct Side, Site, Position Yes -Correct Procedure Yes -Procedure Performed Yes -Type of Procedure Debridement -Clinical Debridement Subcutaneous -Tissue Removed Subcutaneous -Post Debridement (cm) - Length 0.5 -Post Debridement (cm) - Width 0.3 -Post Debridement (cm) - Depth 0.1 -Total Square (Post) (cm) 0.15 -Area of Debridement (cm) - Length 0.5 -Area of Debridement (cm) - Width 0.3 -Total Square (Area) (cm) 0.15 -Tunneling No -Undermining/Tunneling No -Circular Undermining No -Wound/Ulcer Outcome Not Healed -Ulcer Cleansing Rinsed/ Irrigated with Saline -Foul Odor after Cleansing No -Bioengineered Tissue No -Bleeding Controlled with Pressure -Treatment Response Procedure Tolerated Well -Offloading Yes -Type of Offloading Surgical Shoe -Debridement - Subq, 1st 20sq cm Yes Pain Scale: 0-10 Numeric Is Patient Pain Free? Yes - Nurse 3 - General Ulcer D/C NN Start: 03/22/22 13:27 Freq: Status: Active Protocol: Activity Type Activity Date Activity User E-sign Co-sign Detail Recorded Client Recorded Date Recorded By Document 03/22/22 13:53 RB [id number] 03/22/22 13:54 RB 03/22/22 13:53 Wound Care Nurse 3 #9 Right Inferior Hallux -Ulcer Cleansing Wound Cleanser -Foul Odor after Cleansing No -Negative Pressure Wound Therapy N/A -Primary Dressing Applied Mepilex Border -Other Dressing hydrogel -Mepilex Border 1 Treatment Response Procedure Tolerated Well Pain Scale: 0-10 Numeric Is Patient Pain Free? Yes WC - Visit Discharge Discharge Condition Stable Ambulatory Status Ambulatory Transportation Private Auto Medication Reconcilliation completed & No provided to patient/care provider Clinical Summary of Care Provided Yes Assessment/Plan Assessment/Plan (1) Ulcer of right foot with fat layer exposed: CODE(S): L97.512 - Non-pressure chronic ulcer of other part of right foot with fat layer exposed (2) Peripheral vascular occlusive disease: CODE(S): I73.9 - Peripheral vascular disease, unspecified (3) Type 2 diabetes mellitus with diabetic polyneuropathy: CODE(S): E11.42 - Type 2 diabetes mellitus with diabetic polyneuropathy (4) Malnutrition: CODE(S): E46 - Unspecified protein-calorie malnutrition (5) Venous insufficiency: (6) Localized edema: CODE(S): R60.0 - Localized edema PLAN: Plan I reviewed and discussed this case with the patient. Debridement was performed as noted in the clinical panel including medial forefoot. It is noted his ulcer has reoccurred. The following recommendations and work-up was performed: Dressing: hydrogel daily bilateral Wash: Antibacterial soap and water Offload: Surgical shoe with medial fabric was readjusted today to take pressure off the ulcer site. This was adjusted today. to avoid direct pressure to ulcer site. Vascular: It is also noted he has a history of vascular disease with occlusive disease identified even with his updated noninvasive vascular studies performed in early September 2019. Arterial intervention was not planned at the time I was providing care about 1 year ago. I reviewed his noninvasive vascular studies and he does have reduced toe brachial index of about 0.52 on the right. Over updated referral to vascular specialist to see if additional work-up, imaging or intervention is an option at this time due to his recurrent ulcer status. He also has venous disease and had prior intervention with Dr. Calvillo for this condition. To did recently follow up. Testing was completed and he is in the process of scheduling a followup. Additional intervention was not recommended. Edema: Tubigrip with periodic elevation right lower extremity Infection: He was reassured there is no deep tissue exposure signs of local infection noted today. To monitor. Pain: Not present due to neuropathic status Host factors: To continue to monitor and improved glucose levels due to his diabetes status. I recommended nutritional supplementation including Lalo to optimize healing. Diagnostic data: I recommend he updates a right foot x-ray and this was reviewed without acute findings, foreign body, soft tissue emphysema or osseous destruction. His last A1c on file was 7.1%. I answered all the patient's questions. To return to the wound healing center in 1 week or call sooner if the patient has any questions or concerns. Note: [employer] speech recognition playground official software was used to create portions of this document. Sound-alike and misspelled words, as well as other playground official errors may be contained in the documentation.
[2022-04-12 13:50] VITALS: BP 107/74; PULSE 69; RESP 18; TEMP 36.6
--- NOTE | 2022-04-12 14:56 | PCM.WC.PN ---
History of Present Illness Date of Service: 04/12/22 Chief Complaint: right foot ulcer History of Wound: This 77-year-old male returns to the wound healing clinic for reoccurrence of a right medial foot ulcer. He has been changing the dressing with Aquacel Ag and the ulcer site is dry. He denies redness or odor. He denies fevers, chills, nausea, vomiting, diarrhea, loss of appetite, foot redness or odor. He has completed prior limb venous intervention with Dr. Calvillo. Additional intervention was not recommended. He denies redness or odor. He had an offloading surgical shoe and tries to keep weight on the heel. He is with his family member today. He is doing well. He is also recovering from a recent urinary tract infection continues on antibiotics. Progress of Wound: stable Objective Data Objective Data Vital Signs: Vital Signs Temp Pulse Resp BP 97.8 F 69 18 107/74 04/12/22 13:50 04/12/22 13:50 04/12/22 13:50 04/12/22 13:50 Physical Exam Const alert and oriented x3 Extremity Extremity Narrative: No calf tenderness Diminished pulses Muscle wasting noted General Extremity: edema and no tenderness to palpation of joints or extremities; Negative for cyanosis Skin Skin Narrative: no purulence, no streaking, no odor, no infection. skin discontinuity to medial first metatarsal head with granular base. There is no exposed capsule, bone or other deep tissue. No eschar or necrosis. No erythema. The adjacent skin is very hairless and atrophic. no maceration noted. General Skin Exam: Negative for erythema Neuro Neuro Narrative: lack of normal epicritic sensation via light touch is consistent with neuropathy status Debridement Note Debridement Note Wound debrided: medial right forefoot Wound Grade/Stage: 1 Type of Debridement: Excisional debridement Anesthesia Used: 4% Lidocaine Solution Depth: in the subcutaneous layer Percentage of wound debrided: 100 Instrument Used: #15 blade Tissue Removed: fibrous, devitalized subcutaneous, biofilm, slough Severity: Fat Layer Exposed Amount of bleeding with debridement: Mild Bleeding Controlled with: Pressure Patient tolerated procedure: Patient tolerated procedure well Post-Debridement Measurements and Additional Note: Post-Debridement Measurements/Treatment URBAN - Nurse 1 - General Ulcer Assessment Start: 03/22/22 13:27 Freq: Status: Active Protocol: HEMA Activity Type Activity Date Activity User E-sign Co-sign Detail Recorded Client Recorded Date Recorded By Document 03/22/22 13:27 DL [id number] 03/22/22 13:30 DL Document 04/12/22 13:50 DL [id number] 04/12/22 13:56 DL 03/22/22 04/12/22 13:27 13:50 WC - Today's Visit Information Type of service Follow-up Visit Follow-up Visit (Physician/AIRCRAFT LOAD CONTROLLER (Physician/AIRCRAFT LOAD CONTROLLER ) ) Arrival Mode Ambulatory Ambulatory Transfer Assistance None None Patient Identification Verified (Name & Yes Yes ) Patient Requires Transmission-Based No No Precautions Finger Stick Blood Sugar(mg/dl) (if 134 indicated): Blood Sugar Stated by Patient Vital Signs Temperature (97.8 F-99.1 F) 96.8 F L 97.8 F Temperature Source Temporal Temporal Pulse Rate (60-100) 78 69 Pulse Location Monitor Monitor Respiratory Rate (12-18) 18 18 Respiratory rate source Observation Observation Blood Pressure (90/60-120/80) 126/62 H 107/74 Blood Pressure Mean (mm Hg) 83 85 Source Monitor Monitor History Since Last Visit- (Skip if this is Patient's initial visit) Have you changed medications since your No No last visit? Any new allergies or adverse reactions No No Had a fall/change in ADL's that may No No increase risk of falls Signs or symptoms of abuse and/or No No neglect since last visit Have you been in the hospital since your No Yes last visit? Has dressing in place as prescribed Yes Yes Has compression in place as prescribed N/A N/A Has offloadiing in place as prescribed Yes Yes Experienced any changes in pain level or No No management Right Footwear Surgical Shoe with pressure relief insole Pain Scale: 0-10 Numeric Is Patient Pain Free? Yes Yes - Nurse 1 - General Ulcer Measurement Start: 03/22/22 13:27 Freq: Status: Active Protocol: Activity Type Activity Date Activity User E-sign Co-sign Detail Recorded Client Recorded Date Recorded By Document 03/22/22 13:27 DL [id number] 03/22/22 13:30 DL Document 04/12/22 13:50 DL [id number] 04/12/22 13:56 DL Edit Result 04/12/22 13:50 DL (1) [id number] 04/12/22 14:35 DL (1) #9 Right Inferior Hallux - Wound Comment(s) => Pt SOB, requesting O2. Currently on an ATB for a UTI per his daughter, hasn't felt well this week. O2 applied at 2L, SPo2 at 93%. states feels better with O2 on. Following up with his PCP. 03/22/22 04/12/22 13:27 13:50 Wound Center Nurse 1 #9 Right Inferior Hallux -Current Size (cm) - Length 0.1 0.6 -Current Size (cm) - Width 0.1 0.4 -Current Size (cm) - Depth 0.3 0.2 -Total Square Cm 0.01 0.24 -Photo Taken No No -Maximum Distance #2 (cm) 0.2 -Circular Undermining Yes -Exudate Amt Small Small -Exudate Type Serosanguineous -Wound Margin Thickened Distinct, Outline Attached -Granulation Amt Small (1-33%) Large (67-100%) -Granulation Quality [place] -Necrosis Amt None Present (0 Small (1-33%) %) -Necrotic Tissue Type Adherent Slough -Structure Exposed N/A -Texture (Anna-wound Skin Appearance) Callus,Scarring Callus -Moisture (Anna-wound Skin Appearance) No Abnormality Dry/Scaly -Color (Anna-wound Skin Appearance) No Abnormality No Abnormality -Temperature (Anna-wound Skin No Abnormality No Abnormality Appearance) (Pt Warm) (Pt Warm) -Tenderness on Palpation (Anna-wound No No Skin Appearance) -Ulcer Cleansing Rinsed/ Rinsed/ Irrigated with Irrigated with Saline Saline -Foul Odor after Cleansing No No -Anesthetic Used 5% Lidocaine 5% Lidocaine Gel Gel -Wound Comment(s) Pt SOB, requesting O2. Currently on an ATB for a UTI per his daughter, hasn' t felt well this week. O2 applied at 2L, SPo2 at 93%. states feels better with O2 on. Following up with his PCP . URBAN - Nurse 2 - General Ulcer CM Notes Start: 03/22/22 13:27 Freq: Status: Active Protocol: Activity Type Activity Date Activity User E-sign Co-sign Detail Recorded Client Recorded Date Recorded By Document 03/22/22 13:43 DORA [id number] 03/22/22 13:45 Document 04/12/22 14:10 [id number] 04/12/22 14:13 03/22/22 04/12/22 13:43 14:10 Wound Center Nurse 2 #9 Right Inferior Hallux -Time 13:43 14:10 -Correct Patient Yes Yes -Correct Side, Site, Position Yes Yes -Correct Procedure Yes Yes -Procedure Performed Yes Yes -Type of Procedure Debridement Debridement -Clinical Debridement Subcutaneous Subcutaneous -Tissue Removed Subcutaneous Subcutaneous -Post Debridement (cm) - Length 0.5 0.6 -Post Debridement (cm) - Width 0.3 0.5 -Post Debridement (cm) - Depth 0.1 0.2 -Total Square (Post) (cm) 0.15 0.30 -Area of Debridement (cm) - Length 0.5 0.6 -Area of Debridement (cm) - Width 0.3 0.5 -Total Square (Area) (cm) 0.15 0.30 -Tunneling No No -Undermining/Tunneling No No -Circular Undermining No No -Wound/Ulcer Outcome Not Healed Not Healed -Ulcer Cleansing Rinsed/ Rinsed/ Irrigated with Irrigated with Saline Saline -Foul Odor after Cleansing No No -Bioengineered Tissue No No -Bleeding Controlled with Pressure Pressure -Treatment Response Procedure Procedure Tolerated Well Tolerated Well -Offloading Yes Yes -Type of Offloading Surgical Shoe Surgical Shoe -Debridement - Subq, 1st 20sq cm Yes Yes Pain Scale: 0-10 Numeric Is Patient Pain Free? Yes Yes WC - Nurse 3 - General Ulcer D/C NN Start: 03/22/22 13:27 Freq: Status: Active Protocol: Activity Type Activity Date Activity User E-sign Co-sign Detail Recorded Client Recorded Date Recorded By Document 03/22/22 13:53 [id number] 03/22/22 13:54 RB Document 04/12/22 14:25 RB [id number] 04/12/22 14:26 RB 03/22/22 04/12/22 13:53 14:25 Wound Care Nurse 3 #9 Right Inferior Hallux -Ulcer Cleansing Wound Cleanser Rinsed/ Irrigated with Saline -Foul Odor after Cleansing No -Negative Pressure Wound Therapy N/A -Primary Dressing Applied Mepilex Border Mepilex Border -Other Dressing hydrogel hydrogel -Mepilex Border 1 1 Treatment Response Procedure Procedure Tolerated Well Tolerated Well Pain Scale: 0-10 Numeric Is Patient Pain Free? Yes Yes WC - Visit Discharge Discharge Condition Stable Stable Ambulatory Status Ambulatory Ambulatory Transportation Private Auto Private Auto Medication Reconcilliation completed & No No provided to patient/care provider Clinical Summary of Care Provided Yes Yes Assessment/Plan Assessment/Plan (1) Ulcer of right foot with fat layer exposed: CODE(S): L97.512 - Non-pressure chronic ulcer of other part of right foot with fat layer exposed (2) Peripheral vascular occlusive disease: CODE(S): I73.9 - Peripheral vascular disease, unspecified (3) Type 2 diabetes mellitus with diabetic polyneuropathy: CODE(S): E11.42 - Type 2 diabetes mellitus with diabetic polyneuropathy (4) Malnutrition: CODE(S): E46 - Unspecified protein-calorie malnutrition (5) Venous insufficiency: (6) Localized edema: CODE(S): R60.0 - Localized edema PLAN: Plan I reviewed and discussed this case with the patient. Debridement was performed as noted in the clinical panel including medial forefoot. It is noted his ulcer has reoccurred. The following recommendations and work-up was performed: Dressing: hydrogel daily bilateral Wash: Antibacterial soap and water Offload: Surgical shoe with medial fabric was readjusted recently to take pressure off the ulcer site. Vascular: It is also noted he has a history of vascular disease with occlusive disease identified even with his updated noninvasive vascular studies performed in early September 2019. Arterial intervention was not planned at the time I was providing care about 1 year ago. I reviewed his noninvasive vascular studies and he does have reduced toe brachial index of about 0.52 on the right. Over updated referral to vascular specialist to see if additional work-up, imaging or intervention is an option at this time due to his recurrent ulcer status. He also has venous disease and had prior intervention with Dr. Calvillo for this condition. To did recently follow up. Testing was completed and he is in the process of scheduling a followup. Additional intervention was not recommended. Edema: Tubigrip with periodic elevation right lower extremity Infection: He was reassured there is no deep tissue exposure signs of local infection noted today. To monitor. Pain: Not present due to neuropathic status Host factors: To continue to monitor and improved glucose levels due to his diabetes status. I recommended nutritional supplementation including Lalo to optimize healing. Diagnostic data: I recommend he updates a right foot x-ray and this was reviewed without acute findings, foreign body, soft tissue emphysema or osseous destruction. His last A1c on file was 7.1%. I answered all the patient's questions. To return to the wound healing center in 1 week or call sooner if the patient has any questions or concerns. Note: [employer] speech recognition hydrometallurgical engineer software was used to create portions of this document. Sound-alike and misspelled words, as well as other hydrometallurgical engineer errors may be contained in the documentation.
== END 2022-04-19 23:59 | disposition home or self-care (01) ==
LOC: WC 13:45
PROVIDERS: PCP Family Medicine; Visit Provider Podiatrist
DX: E11.621 Type 2 diabetes mellitus with foot ulcer (principal); E11.51 Type 2 diabetes mellitus with diabetic peripheral angiopathy without gangrene; L97.512 Non-pressure chronic ulcer of other part of right foot with fat layer exposed; E11.59 Type 2 diabetes mellitus with other circulatory complications; E11.42 Type 2 diabetes mellitus with diabetic polyneuropathy; R60.0 Localized edema; I87.2 Venous insufficiency (chronic) (peripheral)
CPT/HCPCS: 11042

== ENCOUNTER 2022-04-12 15:02 | Outpatient (CLI) | payer MEDICARE, OTHER, SELFPAY ==
--- NOTE | 2022-04-12 15:05 | CT_ITS ---
INDICATION: NEWLY FOUND RUL MASS EXAMINATION: CT Chest W/ Contrast Injection TECHNIQUE: Helically acquired images were obtained of the chest following administration of IV contrast. A radiation dose optimization technique was used for this scan. 3D postprocessing images including MIPS were reviewed. IV Contrast dosage and agent: IV 75mL Isovue-370 COMPARISON: None. FINDINGS: Lungs: 3.5 x 2.8 cm spiculated mass in the right upper lobe. Mild diffuse scattered groundglass and reticular opacities with honeycombing in the left lung base. Mediastinum: The heart is mildly enlarged. No mediastinal, hilar or axillary adenopathy. Mild aortic arch and coronary artery calcifications. No obvious filling defect seen within the visualized pulmonary arteries. Pleura: Unremarkable Bones/Soft tissues: There are diffuse degenerative changes of the spine. Upper abdomen: No visualized abnormalities in the upper abdomen. CT/Chest WITH Contrast IMPRESSION: Findings suspicious for primary lung malignancy in the right upper lobe. No suspicious lymphadenopathy. Mild chronic interstitial lung disease. Electronically Signed: Devan Parks MD at 19:48 EDT ,
[2022-04-12 15:50] LABS: CREATININE FINGERSTICK 1.4 mg/dL (0.70-1.30)
== END 2022-04-12 23:59 | disposition home or self-care (01) ==
LOC: CT 15:03
PROVIDERS: PCP Family Medicine; Referring Provider Family Medicine; Visit Provider Family Medicine
DX: R91.8 Other nonspecific abnormal finding of lung field (principal); L97.512 Non-pressure chronic ulcer of other part of right foot with fat layer exposed; E46 Unspecified protein-calorie malnutrition; E11.42 Type 2 diabetes mellitus with diabetic polyneuropathy; J84.9 Interstitial pulmonary disease, unspecified; R60.0 Localized edema
CPT/HCPCS: 11042; 71260; Q9967

== ENCOUNTER 2022-04-14 08:23 | Emergency (ER) | payer MEDICARE, OTHER, SELFPAY ==
[2022-04-14 08:24] VITALS: BP 136/51; PULSE 65; RESP 20; TEMP 36; O2SAT 96; BMI 30.2
--- NOTE | 2022-04-14 08:44 | EDS_ITS ---
HPI History of Present Illness Chief Complaint: Hypoglycemia Narrative Narrative: 77-year-old male presenting with hypoglycemia episode. The patient's son-in-law states that he had called his daughter last night at about midnight but his daughter did not get the phone call. This morning at 7 she noticed that her father had called and called him and he seemed confused. He was found by EMS to have a blood glucose of 55. He was given oral glucose. On arrival he is awake and talking. He states that he had COVID symptoms about 4 to 5 days and then was diagnosed with COVID last Sunday. He states he was recovering from this but has not been very active. He states he is not eating much but is drinking plenty of fluids. He is making urine. Of note patient is on about day 10 of antibiotics for a UTI but he does not recall the name of this. His son-in-law states that he will look for this antibiotic. Patient denies any urinary symptoms currently. He denies chest pain or shortness of breath. Patient is not having abdominal pain, diarrhea, constipation. Patient does note that he is been taking his diabetic medication including Januvia 50 mg p.o. daily, insulin glargine 14 units daily, glimepiride. He has not adjusted this to his decreased p.o. intake. [facility] Medical History Anemia Atherosclerosis of coronary artery of [place] heart without angina pectoris BPH (benign prostatic hyperplasia) Chronic kidney disease, stage 3 Delayed wound healing GERD (gastroesophageal reflux disease) Hyperlipidemia Hypertension Lower extremity edema Malnutrition Osteomyelitis of ankle, left, acute Peripheral vascular occlusive disease Type 2 diabetes mellitus with diabetic polyneuropathy Ulcer of left lower extremity with fat layer exposed Venous insufficiency Home Medications glyburide 2.5 mg tablet 1.25 mg PO BID 03/21/17 [History Last Taken Unknown] aspirin 81 mg tablet,delayed release (Adult Low Dose Aspirin) 81 mg PO QDAY 08/22/17 [History Last Taken Unknown] tamsulosin 0.4 mg capsule 0.4 mg PO QDAY 03/06/18 [History Last Taken Unknown] insulin glargine 100 unit/mL subcutaneous solution 14 unit SQ DAILY 11/19/19 [History Last Taken Unknown] cholecalciferol (vitamin D3) 125 mcg (5,000 unit) capsule 125 mcg PO BID 06/28/20 [History Last Taken Unknown] colestipol 1 gram tablet 1 g PO BID 06/28/20 [History Last Taken Unknown] multivitamin (Daily Multi-Vitamin tablet) 1 tab PO DAILY 06/28/20 [History Last Taken Unknown] fish, borage, flaxseed oils-omega 3,6,9 comb no.1 1,200 mg capsule ([place] 3-6-9) 1 cap PO BID 11/02/21 [History Last Taken Unknown] lutein 20 mg capsule 20 mg PO DAILY 11/02/21 [History Last Taken Unknown] metoprolol tartrate 25 mg tablet 12.5 mg PO DAILY 11/02/21 [History Last Taken Unknown] sitagliptin 50 mg tablet (Januvia) 50 mg PO DAILY 11/02/21 [History Last Taken Unknown] clopidogrel 75 mg tablet (Plavix) 75 mg PO DAILY #90 tabs 11/04/21 [Rx Last Taken Unknown] lisinopril 2.5 mg tablet 2.5 mg PO DAILY #90 tabs 11/29/21 [Rx Last Taken Unknown] pravastatin 20 mg tablet 20 mg PO DAILY 01/17/22 [History Last Taken Unknown] docusate sodium 100 mg capsule (Colace) 100 mg PO DAILY PRN PRN Constipation 04/14/22 [History Last Taken Unknown] Allergy/AdvReac Type Severity Reaction Status Date / Time ibuprofen Allergy Severe Facial Verified 04/14/22 08:24 swelling (angioedema) Family History Brother Diabetes Father , Age 72 stomach ulcers No problems noted. Mother , Age 71 pancreatitis No problems noted. Sister , hepatitis C No problems noted. Surgical History H/O aorto-femoral bypass (~2009) History of transurethral resection of prostate Presence of aortocoronary bypass graft (~03/2013) Social History Smoking Status: Current every day smoker tobacco type: e-cigarettes ROS ROS ED Constitutional Constitutional ED: Denies chills or fever(s) Eyes Eyes: Denies change in vision or diplopia ENT ENT ED: Denies rhinorrhea or other Cardiovascular Cardiovascular: Denies chest pain or palpitations Respiratory/Chest Respiratory/Chest: Denies cough or dyspnea Gastrointestinal Gastrointestinal: Denies abdominal pain or constipation Genitourinary Genitourinary ED: Denies dysuria or hematuria Musculoskeletal Musculoskeletal: Denies back pain or myalgias Integumentary Denies abscess or Abrasions Neurologic Neurologic: Denies headache(s) Psychiatric Psychiatric: Denies anxiety EXAM Physical Exam Const Vital Signs: 04/14/22 08:24 04/14/22 08:36 04/14/22 09:37 Temperature 96.8 F L Temperature Source Temporal Pulse Rate 65 63 Respiratory Rate 20 H 20 H Respiratory Effort Normal Non-Labored Respiratory Pattern Normal Blood Pressure 136/51 H 168/76 H Blood Pressure Mean 79 106 Pulse Ox 96 95 Oxygen Delivery Method Room Air Room Air 04/14/22 10:26 Temperature Temperature Source Pulse Rate 74 Respiratory Rate 23 H Respiratory Effort Respiratory Pattern Blood Pressure 142/61 H Blood Pressure Mean 88 Pulse Ox 94 Oxygen Delivery Method Room Air Positive well nourished General Appearance ED: NAD; Negative for pallor HEENT Reports dry mucous membranes Negative for trauma Mouth ED: Yes dry mucous membranes Mouth: dry mucous membranes Eyes PERRL and EOMs intact bilaterally General Eye ED: Negative for pale conjunctiva or scleral icterus Chest Wall inspection of chest normal and palpation of chest normal Resp normal respiratory effort Auscultation: Negative for rales, rhonchi or wheezes Cardio regular rate and regular rhythm GI normal to inspection, nondistended, normoactive bowel sounds Back/Spine no CVA tenderness Neuro oriented x3 and CN's II-XII intact bilaterally Sensorium / Orientation: alert Motor Exam: strength 5/5 throughout Psych mental status grossly normal Psych Narrative: Patient sentinel states he is at baseline Skin General Skin Exam: Negative for jaundice or pallor MDM MDM MDM Narrative Medical decision making narrative: This patient has presented for hyperglycemia. He had a blood sugar of 55 at his house and was given oral glucose and on arrival to the ER he was 49. Patient is awake and alert and talking at this point. His son-in-law states he is at baseline. I will obtain lab work and a urinalysis. Patient will be given IV fluids. I will monitor his blood glucose. He is currently eating crackers with peanut butter. CBC is within normal limits. CMP shows normal LFTs. His creatinine is actually improved over his baseline. Electrolytes are normal. Repeat blood sugar is 113 after eating. I had a long discussion with the patient's family regarding using the antihyperglycemic's. He does need to eat regularly with his medications especially if he is taking the insulin. Patient discharged in stable condition. Impression: 1. Hypoglycemia Lab Data Attestation: I reviewed the patient's lab results. Labs: Laboratory Results - last 24 hr 04/14/22 04/14/22 04/14/22 08:31 08:40 08:40 WBC 6.6 RBC 5.00 Hgb 13.9 Hct 43.2 MCV 86.4 MCH 27.8 MCHC 32.2 RDW Std Deviation 49.0 H RDW Coeff of Reggie 15.4 H Plt Count 287 MPV 10.5 Immature Gran % (Auto) 1.100 H Neut % (Auto) 76.1 H Lymph % (Auto) 9.7 L [place] % (Auto) 12.3 H Eos % (Auto) 0.5 Baso % (Auto) 0.3 Absolute Neuts (auto) 5.0 Absolute Lymphs (auto) 0.64 L Nucleated RBC % 0 Sodium 136 Potassium 4.2 Chloride 103 Carbon Dioxide 25.0 Anion Gap 8 BUN 59 H Creatinine 1.57 H Estim Creat Clear Calc 35.56 Est GFR (MDRD) Af Amer 55 L Est GFR (MDRD) Non-Af 46 L BUN/Creatinine Ratio 37.6 H Glucose 46 L Calcium 9.9 Total Bilirubin 0.50 AST 30 ALT 29 Alkaline Phosphatase 63 Total Protein 8.2 Albumin 3.1 L Globulin 5.1 H Albumin/Globulin Ratio 0.6 L Urine Color Urine Clarity Urine pH Ur Specific [place] Urine Protein Urine Glucose (UA) Urine Ketones Urine Occult Blood Urine Nitrite Urine Bilirubin Urine Urobilinogen Ur Leukocyte Esterase Urine RBC Urine WBC Ur Squamous Epith Cells Urine Bacteria Urine Mucus POC Glucose 49 L 04/14/22 04/14/22 09:08 09:39 WBC RBC Hgb Hct MCV MCH MCHC RDW Std Deviation RDW Coeff of Reggie Plt Count MPV Immature Gran % (Auto) Neut % (Auto) Lymph % (Auto) [place] % (Auto) Eos % (Auto) Baso % (Auto) Absolute Neuts (auto) Absolute Lymphs (auto) Nucleated RBC % Sodium Potassium Chloride Carbon Dioxide Anion Gap BUN Creatinine Estim Creat Clear Calc Est GFR (MDRD) Af Amer Est GFR (MDRD) Non-Af BUN/Creatinine Ratio Glucose Calcium Total Bilirubin AST ALT Alkaline Phosphatase Total Protein Albumin Globulin Albumin/Globulin Ratio Urine Color Yellow Urine Clarity Clear Urine pH 6.0 Ur Specific [place] 1.010 Urine Protein 30 H Urine Glucose (UA) Normal Urine Ketones 5 H Urine Occult Blood Negative Urine Nitrite Negative Urine Bilirubin Negative Urine Urobilinogen Normal Ur Leukocyte Esterase 25 H Urine RBC 0 SEEN Urine WBC 0 SEEN Ur Squamous Epith Cells 0-5 SEEN Urine Bacteria 0 SEEN Urine Mucus 0 SEEN POC Glucose 113 H Discharge Plan Triage Chief Complaint: Hypoglycemia ED Provider: Rafael Blackwell Dx/Rx/DC Orders Instructions: ED Diabetic Insulin Reaction Prescriptions: No Action aspirin [Adult Low Dose Aspirin] 81 mg tablet,delayed release (DR/EC) 81 mg PO QDAY cholecalciferol (vitamin D3) 125 mcg (5,000 unit) capsule 125 mcg PO BID multivitamin [Daily Multi-Vitamin] Tablet 1 tab PO DAILY colestipol 1 gram tablet 1 g PO BID pravastatin 20 mg tablet 20 mg PO DAILY glyburide 2.5 MG tablet 1.25 mg PO BID tamsulosin 0.4 mg capsule 0.4 mg PO QDAY insulin glargine 100 UNIT/ML solution 14 unit SQ DAILY metoprolol tartrate 25 mg Tablet 12.5 mg PO DAILY lutein 20 mg Capsule 20 mg PO DAILY Januvia 50 mg Tablet 50 mg PO DAILY [place] 3-6-9 1,200 mg Capsule 1 cap PO BID docusate sodium [Colace] 100 mg Capsule 100 mg PO DAILY PRN PRN (Reason: Constipation) clopidogrel [Plavix] 75 mg tablet 75 mg PO DAILY Qty: 90 3RF lisinopril 2.5 mg tablet 2.5 mg PO DAILY Qty: 90 3RF Primary Care Provider: Luis Johnson Referrals: Luis Johnson DO [Primary Care Provider] - Disposition Disposition: Home, Self Care
[2022-04-14 08:50] LABS: Bedside Glucose 49 mg/dL (74-106)
[2022-04-14] MEDS: 0.9% Normal Saline 1,000 ML 1000 ML IV (08:51)
[2022-04-14 09:02] LABS: Absolute Lymphocyte Count 0.64 X10^3/uL (0.83-4.51); Basophil# 0.02 X10^3/uL; Basophil% 0.3 % (0-1); Eosinophil# 0.03 X10^3/uL; Eosinophils% 0.5 % (0-5); Hematocrit 43.2 % (40-54); Hemoglobin 13.9 g/dL (13.0-16.5); Lymphocyte # 0.64 X10^3/ul (0.83-4.51); Lymphocyte % 9.7 % (19-41); Mean Corp Hgb Conc 32.2 g/dL (32-36); Mean Corpuscular Hgb 27.8 pg (27.0-32.0); Mean Corpuscular Volume 86.4 fL (80-94); Mean Platelet Vol. 10.5 fl (6.2-12.0); Monocyte# 0.81 X10^3/uL; Monocyte% 12.3 % (0-10); NRBC Flagged by Analyzer 0 % (0-5); Neutrophil # 5.04 X10^3/uL (2.7-7.7); Neutrophil % 76.1 % (47-70); Platelet Count 287 K/mm3 (150-450); RBC Distribution Width CV 15.4 % (11.6-14.6); White Blood Count 6.6 K/mm3 (4.4-11.0)
[2022-04-14 09:14] LABS: Bacteria 0 SEEN /hpf (None Seen); Mucous, Urine 0 SEEN /hpf (<or=2+); Red Blood Cells-Urine 0 SEEN /hpf (0-5); White Blood Cells 0 SEEN /hpf (0-5)
[2022-04-14 09:15] LABS: Color, Urine Yellow (Yellow); Glucose, Dipstick Normal (Normal); Ketone-Dipstick 5 mg/dl (Negative); Leukocyte Esterase-Dipstick 25 /ul (Negative); Nitrite-Dipstick Negative (Negative); Occult Blood-Urine Negative /ul (Negative); Protein-Dipstick 30 mg/dl (Negative); Urine Bilirubin Dipstick Negative (Negative); Urine Clarity Clear (Clear); Urine Urobilinogen Normal (Normal)
[2022-04-14 09:26] LABS: ALB/GLOB Ratio 0.6 RATIO (0.9-2.4); AST(SGOT) 30 U/L (15-37); Alanine Aminotransfer ALT/SGPT 29 U/L (16-61); Albumin, Serum 3.1 g/dL (3.2-5.0); Alkaline Phosphatase 63 U/L (45-117); Anion Gap 8 (5-15); BUN 59 mg/dL (7-18); BUN/Creat Ratio 37.6 RATIO (10-20); Calcium,Total 9.9 mg/dL (8.5-10.1); Chloride 103 mmol/L (98-107); Creatinine, Serum 1.57 mg/dL (0.70-1.30); EST Glomerular Filtration Rate 46 mL/min (>60); Est Glom Filt Rate - Afr Amer 55 mL/min (>60); Estimated Creatinine Clearance 35.56 ml/min; Globulin 5.1 g/dL (2.2-4.2); Glucose 46 mg/dL (74-106); Potassium 4.2 mmol/L (3.5-5.1); Protein, Total 8.2 g/dL (6.4-8.2); Sodium Level 136 mmol/L (136-145)
[2022-04-14 09:27] LABS: Squamous Epithelial Cells - UA 0-5 SEEN /hpf (0-5)
[2022-04-14 09:37] VITALS: BP 168/76; PULSE 63; RESP 20; O2SAT 95
[2022-04-14 10:00] LABS: Bedside Glucose 113 mg/dL (74-106)
[2022-04-14 10:26] VITALS: BP 142/61; PULSE 74; RESP 23; O2SAT 94
[2022-04-14 10:36] VITALS: BP 153/71; PULSE 64; RESP 23; TEMP 35.9; O2SAT 94
== END 2022-04-14 10:30 | disposition home or self-care (01) ==
PROVIDERS: Emergency Provider Student in an Organized Health Care Education/Training Program; PCP Family Medicine; Visit Provider Student in an Organized Health Care Education/Training Program
DX: E11.649 Type 2 diabetes mellitus with hypoglycemia without coma (principal); E11.51 Type 2 diabetes mellitus with diabetic peripheral angiopathy without gangrene; E11.42 Type 2 diabetes mellitus with diabetic polyneuropathy; E11.22 Type 2 diabetes mellitus with diabetic chronic kidney disease; Z79.4 Long term (current) use of insulin; N18.30 Chronic kidney disease, stage 3 unspecified; E78.5 Hyperlipidemia, unspecified; I25.10 Atherosclerotic heart disease of native coronary artery without angina pectoris; I12.9 Hypertensive chronic kidney disease with stage 1 through stage 4 chronic kidney disease, or unspecified chronic kidney disease; F17.290 Nicotine dependence, other tobacco product, uncomplicated; Z79.84 Long term (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 of oral hypoglycemic drugs; Z95.1 Presence of aortocoronary bypass graft; Z79.82 Long term (current) use of aspirin; Z79.899 Other long term (current) drug therapy
CPT/HCPCS: 36415; 80053; 81001; 82962; 85025; 85049; 85610; 96360; 96361; 99284; J7030; A4216

== ENCOUNTER → 2022-04-14 | Outpatient (CLI) | payer MEDICARE, OTHER, SELFPAY ==
[2022-04-14 12:15] LABS: Platelet Count 293 K/mm3 (150-450)
[2022-04-14 12:21] LABS: International Normalized Ratio 1.1
== END | disposition home or self-care (01) ==
LOC: PAVLAB 11:54
PROVIDERS: PCP Family Medicine; Referring Provider Internal Medicine Critical Care Medicine; Visit Provider Internal Medicine Critical Care Medicine
DX: E46 Unspecified protein-calorie malnutrition (principal)

== ENCOUNTER → 2022-04-28 | Outpatient (CLI) | payer MEDICARE, OTHER, SELFPAY ==
[2022-04-28] VITALS (7 sets, daily range): BP systolic 138–168; BP diastolic 38–77; PULSE 54–66; RESP 15–61; TEMP 36.3–36.4; O2SAT 94–98; BMI 28.0
--- NOTE | 2022-04-28 | IMM_PTH ---
PATIENT: PEDRO HILLMAN LOC: CT U#:[id number] AGE/SX: 77/M ROOM: RE04/28/[address]: Dr. Tyrell Uriarte DO : 1945 BED: DIS: 04/28/2022 SPEC #: [id number] RECD: 04/28/22 12:26 STATUS: SOUT REQ #: [id number] BERNIE: 04/28/22 00:[address]: Tyrell Uriarte DEPT: IMMUNOHISTOCHEMISTRY RECD BY: Kanchan Troncoso ENTERED: 04/28/22 12:29 SP TYPE: IMMUNO OTHR DR: Dr. Luis Johnson DO Tissues: Right upper lobe of lung, NOS Procedures: RCC (add) NAPSIN A (add) CK20 (add) CK5-6 (add) CK7 (add) CK8 (add) HEP PAR (add) TTF1 (add) Pankeratin (initial) P40 (add) PSAP (add) PHYSICIAN & [address] [address] SPECIMEN INFORMATION: Tissue Source: Right upper lobe lung mass, CT-guided core biopsy Clinical Info: Right upper lobe lung mass Specimen Number: [id number] CPT code: 17341, 02108 x10 METHODOLOGY: Deparaffinized sections of prefer/formalin-fixed tissue or PAP/DQ stained slides are incubated with monoclonal/polyclonal antibodies/oligonucleotide probes. Localization is made via biotin free immunoperoxidase method. Appropriate controls are performed and reacted as expected. Results on target cell population are indicated in the following table: RESULTS: ANTIBODY / CLONE RESULT AE1-3 (AE1/AE3/PCK26) positive CK7 (OV-TL12/30) negative CK8 (06vzsoH42) positive CK20 (KS20.8) negative TTF-1 (8G7G3/1) negative Napsin A (Rabbit Polyclonal) negative HepPar (OCh1E5) negative RCC (PN-15) negative PSAP (PASE/4LJ) negative CK5-6 (D5 & 1684) positive P40 (BC28) positive These tests were developed and their performance characteristics determined by [facility]. They may not have been cleared or approved by the U.S. Food and Drug Administration. The FDA has determined that such clearance or approval is not necessary. The above immunohistochemical/dualISH markers are ordered and reviewed by the Pathologist. INTERPRETATION: Right upper lobe lung mass, CT-guided core biopsy: Non-small cell carcinoma, favor squamous cell carcinoma. SJ:rashel 05/01/2022
--- NOTE | 2022-04-28 | RAD_ITS ---
STUDY: X-RAY CHEST REASON FOR EXAM: Male, 77 years old. Post biopsy -- 2 hours post lung biopsy TECHNIQUE: AP inspiration and expiration views. COMPARISON: Comparison is made with prior study done earlier today. FINDINGS: No evidence of pneumothorax on the right lung biopsy. RAD/Chest Insp/Exp 2 View IMPRESSION: No evidence of pneumothorax following the right lung biopsy. Electronically Signed: Kenyon Flores MD at 12:22 EDT ,
--- NOTE | 2022-04-28 | ASPIGT_PTH ---
PATIENT: PEDRO HILLMAN LOC: CO U#:[id number] AGE/SX: 77/M ROOM: RE04/28/[address]: Dr. Tyrell Uriarte DO : 1945 BED: DIS: 04/28/2022 SPEC #: [id number] RECD: 04/28/22 09:30 STATUS: NOA YENNY #: [id number] BERNIE: 04/28/22 00:[address]: Tyrell Uriarte DEPT: SURGICAL PATHOLOGY RECD BY: Nalini Lopez ENTERED: 04/28/22 09:55 SP TYPE: ASP RAD OTHR DR: Dr. Luis Johnson DO Tissues: Lung, NOS Procedures: FNA Specimen Adequacy Special Stain Group II Surgery Specimen Level IV Imprint (control) HEADER OPERATION: Right upper lobe lung, CT-guided core biopsy PRE-OP DIAGNOSIS: Right lung mass TISSUE SUBMITTED: Right lung mass MICROSCOPIC DIAGNOSIS Right lung mass, CT-guided core biopsy: Non-small cell carcinoma, favor squamous cell carcinoma. See comment. NARCISA:rashel 05/01/2022 COMMENT The specimen is evaluated at the time of biopsy by Dr. Currie. Immediate Evaluation = Malignant cells present derived from non-small cell carcinoma. Immunohistochemistry ([id number]) supports the above diagnosis. The specimen also extensive organizing pneumonia. Molecular studies on the tumor can be performed if clinically indicated. Please notify the laboratory if they are needed. MICROSCOPIC DESCRIPTION Slides are reviewed. GROSS DESCRIPTION Received in fixative is one container labeled with the patient's name and designated right lung CT-guided core biopsy. The specimen consists of multiple irregular fragments of valencia soft tissue that in aggregate measure 1.5 x 0.3 x 0.1 cm. The specimen is totally submitted in one cassette. Four touch imprints are prepared at the time of core biopsy. / NARCISA:rashel 04/28/2022 TC:0 CPT: 10446, 56968
--- NOTE | 2022-04-28 07:50 | CT_ITS ---
PROCEDURE: CT GUIDED CORE NEEDLE BIOPSY OF A right upper lobe LUNG LESION INDICATION: Male, 77 years old. Lung Mass PHYSICIAN: Dr. NICKY Velez CONSENT: Written informed consent was obtained having explained the risks, benefits and alternatives in detail with the patient who accepted the risks and agreed to proceed. Laboratory review and clinical assessment was performed. CONSCIOUS SEDATION PROTOCOL: The Drugs used were: 1 mg Versed, IV., and 25 mcg Fentanyl, IV. The sedation time was: 22 minutes. Conscious sedation was started at 9:06 AM and terminated at 9:28 AM. The conscious sedation protocol was independently monitored. RADIATION DOSAGE (If Supplied By Facility): CTDIvol = ( 18.2 ) mGy, DLP = ( 309.93 ) mGycm Individualized dose optimization techniques were used for this CT. TECHNIQUE: The patient was placed in the supine position. A noncontrast CT was performed to localize the lesion in the right upper lobe . The skin surface was prepped and draped in a sterile fashion. 1% lidocaine was used for local anesthesia. Using CT guidance, a 20-gauge coaxial biopsy device was advanced to the periphery of the lesion. A total of 5 core specimens were obtained. The specimens were placed in a formalin solution. A post procedure CT demonstrated no adverse sequelae or pneumothorax. The patient tolerated the procedure well without adverse event. A negative biopsy does not exclude malignancy. Further imaging or clinical followup based on patient condition and degree of clinical suspicion for malignancy. Suggest rebiopsy, if biopsy results do not match with clinical scenario. CT/Biopsy/Inj or Needle Placement IMPRESSION: 1. CT directed core needle biopsy of the right upper lobe lung nodule using CT image guidance with image documentation as described. Pathology results are pending. 2. Conscious Sedation protocol utilized with independent monitoring. Electronically Signed: Kenyon Flores MD at 10:04 EDT ,
--- NOTE | 2022-04-28 08:32 | EKG12_ITS ---
Test Reason : pre procedure Blood Pressure : / mmHG Vent. Rate : 055 BPM Atrial Rate : 055 BPM P-R Int : 128 ms QRS Dur : 122 ms QT Int : 430 ms P-R-T Axes : -05 014 213 degrees QTc Int : 411 ms Sinus bradycardia Right bundle branch block T wave abnormality, consider inferolateral ischemia Abnormal ECG When compared with ECG of 18-JUN-2013 11:24, Vent. rate has decreased BY 32 BPM Right bundle branch block is now Present Confirmed by CAMILLE STRATTON, SANDRA ([id number]), development editor AYDEN TENORIO ([id number]) on 05/02/2022 9:21:36 AM Referred By: Tyrell Uriarte Confirmed By:SANDRA OBRIEN MD
[2022-04-28] MEDS: Midazolam 2 MG/2 ML Syringe IV (09:06)
[2022-04-28] MEDS: fentaNYL 100 MCG/2 ML Ampul IV (09:06)
[2022-04-28] MEDS: Lidocaine 2% (10 ml mdv) 10 ML Vial INFILT (09:10)
--- NOTE | 2022-04-28 09:35 | RAD_ITS ---
STUDY: X-RAY CHEST REASON FOR EXAM: Male, 77 years old. Post biopsy -- Immediately post lung biopsy TECHNIQUE: AP inspiration and expiration views. COMPARISON: Comparison is made with prior study dated 06/04/2018. FINDINGS: EKG electrodes are seen. The patient is status post right lung biopsy. There is no evidence of pneumothorax. RAD/Chest Insp/Exp 2 View IMPRESSION: No evidence of pneumothorax on the immediate post right lung biopsy radiographs. Electronically Signed: Kenyon Flores MD at 9:55 EDT ,
== END | disposition home or self-care (01) ==
PROVIDERS: PCP Family Medicine; Referring Provider Internal Medicine Critical Care Medicine; Visit Provider Internal Medicine Critical Care Medicine
DX: C34.11 Malignant neoplasm of upper lobe, right bronchus or lung (principal); R91.8 Other nonspecific abnormal finding of lung field
CPT/HCPCS: 32408; 71046; 77012; 88172; 88305; 88313; 88341; 88342; 93005; 99156; J7050; A4216; C2613

== ENCOUNTER 2022-05-17 15:30 | Outpatient (RCR) | payer MEDICARE, OTHER, SELFPAY ==
[2022-04-20 00:29] VITALS: BP 107/74; PULSE 69; RESP 18; TEMP 36.6
[2022-04-26 13:47] VITALS: BP 118/33; PULSE 80; RESP 18; TEMP 36.1
--- NOTE | 2022-04-26 15:42 | PCM.WC.PN ---
History of Present Illness Date of Service: 04/26/22 Chief Complaint: right foot ulcer History of Wound: This 77-year-old male returns to the wound healing clinic for reoccurrence of a right medial foot ulcer. He has been changing the dressing with Aquacel Ag and the ulcer site is dry. He denies redness or odor. He denies fevers, chills, nausea, vomiting, diarrhea, loss of appetite, foot redness or odor. He has completed prior limb venous intervention with Dr. Calvillo. Additional intervention was not recommended. He denies redness or odor. He had an offloading surgical shoe and tries to keep weight on the heel. He is with his family member today. He is doing well. He is also recovering from a recent urinary tract infection continues on antibiotics and he also recovering from recent covid. Progress of Wound: stable Objective Data Objective Data Vital Signs: Vital Signs Temp Pulse Resp BP 97 F L 80 18 118/33 L 04/26/22 13:47 04/26/22 13:47 04/26/22 13:47 04/26/22 13:47 Physical Exam Const alert and oriented x3 Extremity Extremity Narrative: No calf tenderness Diminished pulses Muscle wasting noted General Extremity: edema and no tenderness to palpation of joints or extremities; Negative for cyanosis Skin Skin Narrative: no purulence, no streaking, no odor, no infection. skin discontinuity to medial first metatarsal head with granular base. There is no exposed capsule, bone or other deep tissue. No eschar or necrosis. No erythema. The adjacent skin is very hairless and atrophic. no maceration noted. General Skin Exam: Negative for erythema Neuro Neuro Narrative: lack of normal epicritic sensation via light touch is consistent with neuropathy status Debridement Note Debridement Note Wound debrided: medial right forefoot Wound Grade/Stage: 1 Type of Debridement: Excisional debridement Anesthesia Used: 4% Lidocaine Solution Depth: in the subcutaneous layer Percentage of wound debrided: 100 Instrument Used: #15 blade Tissue Removed: fibrous, devitalized subcutaneous, biofilm, slough Severity: Fat Layer Exposed Amount of bleeding with debridement: Mild Bleeding Controlled with: Pressure Patient tolerated procedure: Patient tolerated procedure well Post-Debridement Measurements and Additional Note: Post-Debridement Measurements/Treatment URBAN - Nurse 1 - General Ulcer Assessment Start: 04/26/22 13:47 Freq: Status: Active Protocol: HEMA Activity Type Activity Date Activity User E-sign Co-sign Detail Recorded Client Recorded Date Recorded By Document 04/26/22 13:47 DL [id number] 04/26/22 13:52 DL 04/26/22 13:47 - Today's Visit Information Type of service 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 Any new allergies or adverse reactions No Had a fall/change in ADL's that may No increase risk of falls Signs or symptoms of abuse and/or No neglect since last visit Have you been in the hospital since your No last visit? Has dressing in place as prescribed Yes Has compression in place as prescribed N/A Has offloadiing in place as prescribed Yes Pain Scale: 0-10 Numeric Is Patient Pain Free? Yes - Nurse 1 - General Ulcer Measurement Start: 04/26/22 13:47 Freq: Status: Active Protocol: Activity Type Activity Date Activity User E-sign Co-sign Detail Recorded Client Recorded Date Recorded By Document 04/26/22 13:47 DL [id number] 04/26/22 13:52 DL 04/26/22 13:47 Wound Center Nurse 1 #9 Right Inferior Hallux -Current Size (cm) - Length 0.5 -Current Size (cm) - Width 0.5 -Current Size (cm) - Depth 0.4 -Total Square Cm 0.25 -Photo Taken No -Exudate Amt Small -Exudate Type Serosanguineous -Wound Margin Distinct, Outline Attached -Granulation Amt Small (1-33%) -Granulation Quality Red -Necrosis Amt Small (1-33%) -Necrotic Tissue Type Adherent Slough -Structure Exposed N/A -Texture (Anna-wound Skin Appearance) Scarring -Moisture (Anna-wound Skin Appearance) No Abnormality -Color (Anna-wound Skin Appearance) No Abnormality -Temperature (Anna-wound Skin No Abnormality Appearance) (Pt Warm) -Tenderness on Palpation (Anna-wound No Skin Appearance) -Ulcer Cleansing Rinsed/ Irrigated with Saline -Foul Odor after Cleansing Yes, Due to Product Use -Anesthetic Used 5% Lidocaine Gel URBAN - Nurse 2 - General Ulcer CM Notes Start: 04/26/22 13:47 Freq: Status: Active Protocol: Activity Type Activity Date Activity User E-sign Co-sign Detail Recorded Client Recorded Date Recorded By Document 04/26/22 14:00 [id number] 04/26/22 14:03 04/26/22 14:00 Wound Center Nurse 2 -Time 14:02 -Correct Patient Yes -Correct Side, Site, Position Yes -Correct Procedure Yes -Procedure Performed Yes -Type of Procedure Debridement -Clinical Debridement Subcutaneous -Tissue Removed Subcutaneous -Post Debridement (cm) - Length 0.6 -Post Debridement (cm) - Width 0.5 -Post Debridement (cm) - Depth 0.4 -Total Square (Post) (cm) 0.30 -Area of Debridement (cm) - Length 0.6 -Area of Debridement (cm) - Width 0.5 -Total Square (Area) (cm) 0.30 -Tunneling No -Undermining/Tunneling No -Circular Undermining No -Wound/Ulcer Outcome Not Healed -Ulcer Cleansing Rinsed/ Irrigated with Saline -Foul Odor after Cleansing No -Bioengineered Tissue No -Bleeding Controlled with Pressure -Treatment Response Procedure Tolerated Well -Offloading Yes -Type of Offloading Surgical Shoe -Debridement - Subq, 1st 20sq cm Yes Pain Scale: 0-10 Numeric Is Patient Pain Free? Yes - Nurse 3 - General Ulcer D/C NN Start: 04/26/22 13:47 Freq: Status: Active Protocol: Activity Type Activity Date Activity User E-sign Co-sign Detail Recorded Client Recorded Date Recorded By Document 04/26/22 14:08 [id number] 04/26/22 14:08 04/26/22 14:08 Wound Care Nurse 3 #9 Right Inferior Hallux -Ulcer Cleansing Rinsed/ Irrigated with Saline -Foul Odor after Cleansing No -Primary Dressing Applied C Hydrogel ($), Mepilex Border -Mepilex Border 1 Pain Scale: 0-10 Numeric Is Patient Pain Free? Yes WC - Visit Discharge Discharge Condition Stable Ambulatory Status Ambulatory,Cane Transportation Private Auto Medication Reconcilliation completed & Yes provided to patient/care provider Clinical Summary of Care Provided Yes Assessment/Plan Assessment/Plan (1) Ulcer of right foot with fat layer exposed: CODE(S): L97.512 - Non-pressure chronic ulcer of other part of right foot with fat layer exposed (2) Peripheral vascular occlusive disease: CODE(S): I73.9 - Peripheral vascular disease, unspecified (3) Type 2 diabetes mellitus with diabetic polyneuropathy: CODE(S): E11.42 - Type 2 diabetes mellitus with diabetic polyneuropathy (4) Malnutrition: CODE(S): E46 - Unspecified protein-calorie malnutrition (5) Venous insufficiency: (6) Localized edema: CODE(S): R60.0 - Localized edema PLAN: Plan I reviewed and discussed this case with the patient. Debridement was performed as noted in the clinical panel including medial forefoot. It is noted his ulcer has reoccurred. The following recommendations and work-up was performed: Dressing: hydrogel daily bilateral Wash: Antibacterial soap and water Offload: Surgical shoe with medial fabric was readjusted recently to take pressure off the ulcer site. Vascular: It is also noted he has a history of vascular disease with occlusive disease identified even with his updated noninvasive vascular studies performed in early September 2019. Arterial intervention was not planned at the time I was providing care about 1 year ago. I reviewed his noninvasive vascular studies and he does have reduced toe brachial index of about 0.52 on the right. Over updated referral to vascular specialist to see if additional work-up, imaging or intervention is an option at this time due to his recurrent ulcer status. He also has venous disease and had prior intervention with Dr. Calvillo for this condition. To did recently follow up. Testing was completed and he is in the process of scheduling a followup. Additional intervention was not recommended. Edema: Tubigrip with periodic elevation right lower extremity Infection: He was reassured there is no deep tissue exposure signs of local infection noted today. To monitor. Pain: Not present due to neuropathic status Host factors: To continue to monitor and improved glucose levels due to his diabetes status. I recommended nutritional supplementation including Lalo to optimize healing. Diagnostic data: I recommend he updates a right foot x-ray and this was reviewed without acute findings, foreign body, soft tissue emphysema or osseous destruction. His last A1c on file was 7.1%. I answered all the patient's questions. To return to the wound healing center in 1 week or call sooner if the patient has any questions or concerns. Note: [employer] speech recognition anode rebuilder software was used to create portions of this document. Sound-alike and misspelled words, as well as other anode rebuilder errors may be contained in the documentation.
[2022-05-17 15:07] VITALS: BP 142/63; PULSE 71; RESP 20; TEMP 36.4
--- NOTE | 2022-05-17 16:37 | PCM.WC.PN ---
History of Present Illness Date of Service: 05/17/22 Chief Complaint: right foot ulcer History of Wound: This 77-year-old male returns to the wound healing clinic for reoccurrence of a right medial foot ulcer. He has been changing the dressing with Aquacel Ag and the ulcer site is dry. He denies redness or odor. He denies fevers, chills, nausea, vomiting, diarrhea, loss of appetite, foot redness or odor. He has completed prior limb venous intervention with Dr. Calvillo. Additional intervention was not recommended. He denies redness or odor. He had an offloading surgical shoe and tries to keep weight on the heel. He is with his family member today. He is doing well. He is also recovering from a recent urinary tract infection continues on antibiotics and he also recovering from recent covid. Progress of Wound: Patient was previously seen by another provider who is no longer at the wound center. 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 They are still working on the staging. His ulcer on his right medial foot is stable. Objective Data Objective Data Vital Signs: Vital Signs Temp Pulse Resp BP 97.5 F L 71 20 H 142/63 H 05/17/22 15:07 05/17/22 15:07 05/17/22 15:07 05/17/22 15:07 Charges/Coding Procedures Integumentary 111xxx-113xx: [id number] Mihaela subq tissue 20 sq cm/< Physical Exam Const alert and oriented x3 General Appearance: cooperative HEENT normocephalic Lymph Lymphatic: no lymphedema noted Resp normal respiratory effort Auscultation: diminished lung sounds Cardio regular rate and regular rhythm GI normal to inspection, nondistended, normoactive bowel sounds and non-tender Palpation: soft Extremity normal to inspection and normal capillary refill Extremity Narrative: +1 edema right leg and foot. Skin Wound Narrative: Ulcer on right medial foot is stable. Wound bed is pink. Neuro CN's II-XII intact bilaterally Psych Appearance: grossly normal Debridement Note Debridement Note Wound debrided: medial foot ulcer Laterality: Right Type of Debridement: Excisional debridement Anesthesia Used: 5% Lidocaine Gel Depth: Down to and including healthy tissue and in the subcutaneous layer Percentage of wound debrided: 100 Instrument Used: 5mm curette Tissue Removed: Devitalized tissue and slough Severity: Fat Layer Exposed Amount of bleeding with debridement: Mild Bleeding Controlled with: Compression and gauze Patient tolerated procedure: Patient tolerated procedure well Post-Debridement Measurements and Additional Note: Post-Debridement Measurements/Treatment WC - Nurse 1 - General Ulcer Assessment Start: 04/26/22 13:47 Freq: Status: Active Protocol: HEMA Activity Type Activity Date Activity User E-sign Co-sign Detail Recorded Client Recorded Date Recorded By Document 04/26/22 13:47 DL [id number] 04/26/22 13:52 DL Document 05/17/22 15:07 DL [id number] 05/17/22 15:15 DL 04/26/22 05/17/22 13:47 15:07 WC - Today's Visit Information Type of service Follow-up Visit Follow-up Visit (Physician/INDUSTRIAL SAFETY AND HEALTH SPECIALIST (Physician/INDUSTRIAL SAFETY AND HEALTH SPECIALIST ) ) Arrival Mode Ambulatory Ambulatory, Walker Transfer Assistance None None Patient Identification Verified (Name & Yes Yes ) Patient Requires Transmission-Based No No Precautions Blood Sugar Stated by Patient Vital Signs Temperature (97.8 F-99.1 F) 97 F L 97.5 F L Temperature Source Temporal Temporal Pulse Rate (60-100) 80 71 Pulse Location Monitor Monitor Respiratory Rate (12-18) 18 20 H Respiratory rate source Observation Observation Blood Pressure (90/60-120/80) 118/33 L 142/63 H Blood Pressure Mean (mm Hg) 61 89 Source Monitor Monitor History Since Last Visit- (Skip if this is Patient's initial visit) Have you changed medications since your No No last visit? Any new allergies or adverse reactions No No Had a fall/change in ADL's that may No No increase risk of falls Signs or symptoms of abuse and/or No No neglect since last visit Have you been in the hospital since your No No last visit? Has dressing in place as prescribed Yes Yes Has compression in place as prescribed N/A N/A Has offloadiing in place as prescribed Yes Yes Experienced any changes in pain level or No management Pain Scale: 0-10 Numeric Is Patient Pain Free? Yes Yes URBAN Johnson Nurse 1 - General Ulcer Measurement Start: 04/26/22 13:47 Freq: Status: Active Protocol: Activity Type Activity Date Activity User E-sign Co-sign Detail Recorded Client Recorded Date Recorded By Document 04/26/22 13:47 DL [id number] 04/26/22 13:52 DL Document 05/17/22 15:07 [id number] 05/17/22 15:15 04/26/22 05/17/22 13:47 15:07 Wound Center Nurse 1 #9 Right Inferior Hallux -Current Size (cm) - Length 0.5 0.5 -Current Size (cm) - Width 0.5 0.6 -Current Size (cm) - Depth 0.4 0.5 -Total Square Cm 0.25 0.30 -Photo Taken No Yes -Exudate Amt Small Medium -Exudate Type Serosanguineous Serosanguineous -Wound Margin Distinct, Thickened & Outline Rolled Under Attached -Granulation Amt Small (1-33%) None Present (0 %) -Granulation Quality Red Pale -Necrosis Amt Small (1-33%) Small (1-33%) -Necrotic Tissue Type Adherent Slough Adherent Slough -Structure Exposed N/A N/A -Texture (Anna-wound Skin Appearance) Scarring Callus,Scarring -Moisture (Anna-wound Skin Appearance) No Abnormality Dry/Scaly -Color (Anna-wound Skin Appearance) No Abnormality No Abnormality -Temperature (Anna-wound Skin No Abnormality No Abnormality Appearance) (Pt Warm) (Pt Warm) -Tenderness on Palpation (Anna-wound No No Skin Appearance) -Ulcer Cleansing Rinsed/ Rinsed/ Irrigated with Irrigated with Saline Saline -Foul Odor after Cleansing Yes, Due to No Product Use -Anesthetic Used 5% Lidocaine 5% Lidocaine Gel Gel WC - Nurse 2 - General Ulcer CM Notes Start: 04/26/22 13:47 Freq: Status: Active Protocol: Activity Type Activity Date Activity User E-sign Co-sign Detail Recorded Client Recorded Date Recorded By Document 04/26/22 14:00 [id number] 04/26/22 14:03 Document 05/17/22 16:03 [id number] 05/17/22 16:05 04/26/22 05/17/22 14:00 16:03 Wound Center Nurse 2 #9 Right Inferior Hallux -Time 14:02 16:03 -Correct Patient Yes Yes -Correct Side, Site, Position Yes Yes -Correct Procedure Yes Yes -Procedure Performed Yes Yes -Type of Procedure Debridement Debridement -Clinical Debridement Subcutaneous Subcutaneous -Tissue Removed Subcutaneous Subcutaneous -Post Debridement (cm) - Length 0.6 0.8 -Post Debridement (cm) - Width 0.5 0.8 -Post Debridement (cm) - Depth 0.4 0.4 -Total Square (Post) (cm) 0.30 0.64 -Area of Debridement (cm) - Length 0.6 0.8 -Area of Debridement (cm) - Width 0.5 0.8 -Total Square (Area) (cm) 0.30 0.64 -Tunneling No No -Undermining/Tunneling No No -Circular Undermining No No -Wound/Ulcer Outcome Not Healed Not Healed -Ulcer Cleansing Rinsed/ Rinsed/ Irrigated with Irrigated with Saline Saline -Foul Odor after Cleansing No No -Bioengineered Tissue No No -Bleeding Controlled with Pressure Pressure -Treatment Response Procedure Procedure Tolerated Well Tolerated Well -Offloading Yes Yes -Type of Offloading Surgical Shoe Surgical Shoe -Debridement - Subq, 1st 20sq cm Yes Yes Pain Scale: 0-10 Numeric Is Patient Pain Free? Yes Yes - Nurse 3 - General Ulcer D/C NN Start: 04/26/22 13:47 Freq: Status: Active Protocol: Activity Type Activity Date Activity User E-sign Co-sign Detail Recorded Client Recorded Date Recorded By Document 04/26/22 14:08 [id number] 04/26/22 14:08 Document 05/17/22 16:15 [id number] 05/17/22 16:16 04/26/22 05/17/22 14:08 16:15 Wound Care Nurse 3 #9 Right Inferior Hallux -Ulcer Cleansing Rinsed/ Rinsed/ Irrigated with Irrigated with Saline Saline -Foul Odor after Cleansing No No -Primary Dressing Applied C Hydrogel ($), Mepilex Border, Mepilex Border Promogran Cass Matter -Mepilex Border 1 1 -Promogran Cass Matter 1 Treatment Response Procedure Tolerated Well Pain Scale: 0-10 Numeric Is Patient Pain Free? Yes Yes - Visit Discharge Discharge Condition Stable Stable Ambulatory Status Ambulatory,Cane Ambulatory Transportation Private Auto Private Auto Medication Reconcilliation completed & Yes provided to patient/care provider Clinical Summary of Care Provided Yes Facility Type Home Health Orders Sent Yes Assessment/Plan Assessment/Plan (1) Ulcer of right foot with fat layer exposed: CODE(S): L97.512 - Non-pressure chronic ulcer of other part of right foot with fat layer exposed (2) Peripheral vascular occlusive disease: CODE(S): I73.9 - Peripheral vascular disease, unspecified (3) Type 2 diabetes mellitus with diabetic polyneuropathy: CODE(S): E11.42 - Type 2 diabetes mellitus with diabetic polyneuropathy (4) Venous insufficiency: (5) Lower extremity edema: CODE(S): R60.0 - Localized edema PLAN: Plan Patient was evaluated at the wound healing center today. A subcutaneous debridement was performed as documented. Wound care - Cass primary dressing covered with [place] SAP (secondary dressing) every other day after washing foot with soap and water. Compression - Single tubigrip Off-loading - Post op shoe, adjusted to take the pressure off the ulcer. Vascular:? 12/19/21 - Right EULALIA - 1.15, Left EULALIA 1.06. Right digital 0.74, Left digital 0.71, bilateral triphasic. Venous studies showed bilateral no DVT, Bilateral calf with primary veins with reflux, bilateral SPJ reflux. Encouraged high protein diet that is low in carbohydrates and sodium. Follow up one week.
--- NOTE | 2022-05-24 13:56 | PCM.WC.PN ---
History of Present Illness Date of Service: 05/24/22 Chief Complaint: right foot ulcer History of Wound: This 77-year-old male returns to the wound healing clinic for reoccurrence of a right medial foot ulcer. He has been changing the dressing with Aquacel Ag and the ulcer site is dry. He denies redness or odor. He denies fevers, chills, nausea, vomiting, diarrhea, loss of appetite, foot redness or odor. He has completed prior limb venous intervention with Dr. Calvillo. Additional intervention was not recommended. He denies redness or odor. He had an offloading surgical shoe and tries to keep weight on the heel. He is with his family member today. He is doing well. He is also recovering from a recent urinary tract infection continues on antibiotics and he also recovering from recent covid. 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 They are still working on the staging. His ulcer on his right medial foot is stable. Objective Data Objective Data Vital Signs: Vital Signs Temp Pulse Resp BP 97.5 F L 71 20 H 142/63 H 05/17/22 15:07 05/17/22 15:07 05/17/22 15:07 05/17/22 15:07 Lab / Micro Data Micro: Microbiology 05/18/22 Unknown Wound Abcess - Right Foot Gram Stain - Final 05/18/22 Unknown Wound Abcess - Right Foot Wound Culture - Final Staphylococcus pseudintermediu Staphylococcus saprophyticus 05/18/22 Unknown Wound Abcess - Right Foot Anaerobic Culture - Final Anaerobic cocci Charges/Coding Procedures Integumentary 111xxx-113xx: 11100 Mihaela subq tissue 20 sq cm/< Physical Exam Const alert and oriented x3 General Appearance: cooperative HEENT normocephalic Lymph Lymphatic: no lymphedema noted Resp normal respiratory effort Auscultation: diminished lung sounds Cardio regular rate Extremity normal to inspection and normal capillary refill Extremity Narrative: +1 edema right leg and foot. Skin Wound Narrative: Ulcer on right medial foot is stable. Wound bed is pink. Neuro CN's II-XII intact bilaterally Psych Appearance: grossly normal Debridement Note Debridement Note Wound debrided: medial foot ulcer Laterality: Right Type of Debridement: Excisional debridement Anesthesia Used: 5% Lidocaine Gel Depth: Down to and including healthy tissue and in the subcutaneous layer Percentage of wound debrided: 100 Instrument Used: 3mm curette Tissue Removed: Devitalized tissue and slough Severity: Fat Layer Exposed Amount of bleeding with debridement: Mild Bleeding Controlled with: Compression and gauze Patient tolerated procedure: Patient tolerated procedure well Post-Debridement Measurements and Additional Note: Post-Debridement Measurements/Treatment WC - Nurse 1 - General Ulcer Assessment Start: 04/26/22 13:47 Freq: Status: Active Protocol: HEMA Activity Type Activity Date Activity User E-sign Co-sign Detail Recorded Client Recorded Date Recorded By Document 04/26/22 13:47 DL [id number] 04/26/22 13:52 DL Document 05/17/22 15:07 DL [id number] 05/17/22 15:15 DL 04/26/22 05/17/22 13:47 15:07 WC - Today's Visit Information Type of service Follow-up Visit Follow-up Visit (Physician/INSURANCE CLAIMS REPRESENTATIVE (Physician/INSURANCE CLAIMS REPRESENTATIVE ) ) Arrival Mode Ambulatory Ambulatory, Walker Transfer Assistance None None Patient Identification Verified (Name & Yes Yes ) Patient Requires Transmission-Based No No Precautions Blood Sugar Stated by Patient Vital Signs Temperature (97.8 F-99.1 F) 97 F L 97.5 F L Temperature Source Temporal Temporal Pulse Rate (60-100) 80 71 Pulse Location Monitor Monitor Respiratory Rate (12-18) 18 20 H Respiratory rate source Observation Observation Blood Pressure (90/60-120/80) 118/33 L 142/63 H Blood Pressure Mean (mm Hg) 61 89 Source Monitor Monitor History Since Last Visit- (Skip if this is Patient's initial visit) Have you changed medications since your No No last visit? Any new allergies or adverse reactions No No Had a fall/change in ADL's that may No No increase risk of falls Signs or symptoms of abuse and/or No No neglect since last visit Have you been in the hospital since your No No last visit? Has dressing in place as prescribed Yes Yes Has compression in place as prescribed N/A N/A Has offloadiing in place as prescribed Yes Yes Experienced any changes in pain level or No management Pain Scale: 0-10 Numeric Is Patient Pain Free? Yes Yes URBAN Johnson Nurse 1 - General Ulcer Measurement Start: 04/26/22 13:47 Freq: Status: Active Protocol: Activity Type Activity Date Activity User E-sign Co-sign Detail Recorded Client Recorded Date Recorded By Document 04/26/22 13:47 [id number] 04/26/22 13:52 DL Document 05/17/22 15:07 [id number] 05/17/22 15:15 04/26/22 05/17/22 13:47 15:07 Wound Center Nurse 1 #9 Right Inferior Hallux -Current Size (cm) - Length 0.5 0.5 -Current Size (cm) - Width 0.5 0.6 -Current Size (cm) - Depth 0.4 0.5 -Total Square Cm 0.25 0.30 -Photo Taken No Yes -Exudate Amt Small Medium -Exudate Type Serosanguineous Serosanguineous -Wound Margin Distinct, Thickened & Outline Rolled Under Attached -Granulation Amt Small (1-33%) None Present (0 %) -Granulation Quality Red Pale -Necrosis Amt Small (1-33%) Small (1-33%) -Necrotic Tissue Type Adherent Slough Adherent Slough -Structure Exposed N/A N/A -Texture (Anna-wound Skin Appearance) Scarring Callus,Scarring -Moisture (Anna-wound Skin Appearance) No Abnormality Dry/Scaly -Color (Anna-wound Skin Appearance) No Abnormality No Abnormality -Temperature (Anna-wound Skin No Abnormality No Abnormality Appearance) (Pt Warm) (Pt Warm) -Tenderness on Palpation (Anna-wound No No Skin Appearance) -Ulcer Cleansing Rinsed/ Rinsed/ Irrigated with Irrigated with Saline Saline -Foul Odor after Cleansing Yes, Due to No Product Use -Anesthetic Used 5% Lidocaine 5% Lidocaine Gel Gel WC - Nurse 2 - General Ulcer CM Notes Start: 04/26/22 13:47 Freq: Status: Active Protocol: Activity Type Activity Date Activity User E-sign Co-sign Detail Recorded Client Recorded Date Recorded By Document 04/26/22 14:00 [id number] 04/26/22 14:03 Document 05/17/22 16:03 [id number] 05/17/22 16:05 04/26/22 05/17/22 14:00 16:03 Wound Center Nurse 2 #9 Right Inferior Hallux -Time 14:02 16:03 -Correct Patient Yes Yes -Correct Side, Site, Position Yes Yes -Correct Procedure Yes Yes -Procedure Performed Yes Yes -Type of Procedure Debridement Debridement -Clinical Debridement Subcutaneous Subcutaneous -Tissue Removed Subcutaneous Subcutaneous -Post Debridement (cm) - Length 0.6 0.8 -Post Debridement (cm) - Width 0.5 0.8 -Post Debridement (cm) - Depth 0.4 0.4 -Total Square (Post) (cm) 0.30 0.64 -Area of Debridement (cm) - Length 0.6 0.8 -Area of Debridement (cm) - Width 0.5 0.8 -Total Square (Area) (cm) 0.30 0.64 -Tunneling No No -Undermining/Tunneling No No -Circular Undermining No No -Wound/Ulcer Outcome Not Healed Not Healed -Ulcer Cleansing Rinsed/ Rinsed/ Irrigated with Irrigated with Saline Saline -Foul Odor after Cleansing No No -Bioengineered Tissue No No -Bleeding Controlled with Pressure Pressure -Treatment Response Procedure Procedure Tolerated Well Tolerated Well -Offloading Yes Yes -Type of Offloading Surgical Shoe Surgical Shoe -Debridement - Subq, 1st 20sq cm Yes Yes Pain Scale: 0-10 Numeric Is Patient Pain Free? Yes Yes - Nurse 3 - General Ulcer D/C NN Start: 04/26/22 13:47 Freq: Status: Active Protocol: Activity Type Activity Date Activity User E-sign Co-sign Detail Recorded Client Recorded Date Recorded By Document 04/26/22 14:08 [id number] 04/26/22 14:08 Document 05/17/22 16:15 DL [id number] 05/17/22 16:16 DL 04/26/22 05/17/22 14:08 16:15 Wound Care Nurse 3 #9 Right Inferior Hallux -Ulcer Cleansing Rinsed/ Rinsed/ Irrigated with Irrigated with Saline Saline -Foul Odor after Cleansing No No -Primary Dressing Applied C Hydrogel ($), Mepilex Border, Mepilex Border Promogran Cass Matter -Mepilex Border 1 1 -Promogran Cass Matter 1 Treatment Response Procedure Tolerated Well Pain Scale: 0-10 Numeric Is Patient Pain Free? Yes Yes - Visit Discharge Discharge Condition Stable Stable Ambulatory Status Ambulatory,Cane Ambulatory Transportation Private Auto Private Auto Medication Reconcilliation completed & Yes provided to patient/care provider Clinical Summary of Care Provided Yes Facility Type Home Health Orders Sent Yes Assessment/Plan Assessment/Plan (1) Ulcer of right foot with fat layer exposed: CODE(S): L97.512 - Non-pressure chronic ulcer of other part of right foot with fat layer exposed (2) Peripheral vascular occlusive disease: CODE(S): I73.9 - Peripheral vascular disease, unspecified (3) Type 2 diabetes mellitus with diabetic polyneuropathy: CODE(S): E11.42 - Type 2 diabetes mellitus with diabetic polyneuropathy (4) Venous insufficiency: (5) Lower extremity edema: CODE(S): R60.0 - Localized edema PLAN: Plan Patient was evaluated at the wound healing center today. A subcutaneous debridement was performed as documented. Wound care - Cass primary dressing covered with [place] SAP (secondary dressing) every other day after washing foot with soap and water. Compression - Single tubigrip Off-loading - Post op shoe, adjusted to take the pressure off the ulcer. Vascular:? 12/19/21 - Right EULALIA - 1.15, Left EULALIA 1.06. Right digital 0.74, Left digital 0.71, bilateral triphasic. Venous studies showed bilateral no DVT, Bilateral calf with primary veins with reflux, bilateral SPJ reflux. Wound culture obtained on 05/18/22 which was positive for Staphylococcus pseudintermediu, Staphylococcus saprophyticus and Anaerobic cocci. Will start him on Augmentin. Encouraged high protein diet that is low in carbohydrates and sodium. Follow up one week.
== END 2022-05-19 23:59 | disposition home or self-care (01) ==
LOC: WC 15:30
PROVIDERS: PCP Family Medicine; Visit Provider Nurse Practitioner Family
DX: E11.621 Type 2 diabetes mellitus with foot ulcer (principal); E11.51 Type 2 diabetes mellitus with diabetic peripheral angiopathy without gangrene; L97.512 Non-pressure chronic ulcer of other part of right foot with fat layer exposed; E11.59 Type 2 diabetes mellitus with other circulatory complications; E11.42 Type 2 diabetes mellitus with diabetic polyneuropathy; R60.0 Localized edema; I87.2 Venous insufficiency (chronic) (peripheral); Z86.16 Personal history of COVID-19
CPT/HCPCS: 11042; 87070; 87075; 87077; 87186; 87205

== ENCOUNTER → 2022-05-22 | Outpatient (CLI) | payer MEDICARE, OTHER, SELFPAY ==
--- NOTE | 2022-05-22 13:15 | MRI_ITS ---
HISTORY: Lung cancer staging, no head symptoms. TECHNIQUE: Multiplanar and multisequence MR images of the brain were obtained before and after the intravenous administration of 17mL CLARISCAN. 667 images. COMPARISON: CT 04/29/2015. FINDINGS: BRAIN PARENCHYMA: Minimal periventricular white matter changes. No enhancing lesion. No abnormal focus of restricted diffusion. No acute intracranial hemorrhage identified. CSF SPACES: Generalized volume loss. No significant midline shift or other mass effect.No extra-axial fluid collection. VASCULAR SYSTEM: Major intracranial flow voids are maintained. PARANASAL SINUSES AND MASTOID AIR CELLS: No significant air fluid levels. ORBITS: Bilateral lens resections. MRI/Brain W/WO Contrast IMPRESSION: No evidence for enhancing intracranial mass or acute infarct. Mild chronic involutional and white matter changes. Electronically Signed: Awa James MD at 15:31 EDT ,
[2022-05-22 16:55] LABS: CREATININE FINGERSTICK < 0.9 mg/dL (0.70-1.30); EGFR FINGERSTICK > 60.0000 mL/min (>60)
== END | disposition home or self-care (01) ==
LOC: MRI 12:55
PROVIDERS: PCP Family Medicine; Referring Provider Internal Medicine Medical Oncology; Visit Provider Internal Medicine Medical Oncology
DX: C34.11 Malignant neoplasm of upper lobe, right bronchus or lung (principal)
CPT/HCPCS: 70553; A9575

== ENCOUNTER → 2022-06-02 | Outpatient (CLI) | payer MEDICARE, OTHER, SELFPAY ==
--- NOTE | 2022-06-02 14:18 | PFTCOMP ---
COMPLETE PULMONARY FUNCTION TEST INTERPRETATION Brief HPI: Patient is a 77-year-old male, currently under the care of Dr. Choi, who presents to [facility] for complete pulmonary function tests secondary to diagnosis of lung cancer. Respiratory therapist reports good effort and reproducible results. Interpretation: Forced expiration spirometry shows a moderately severe large airways obstructive ventilatory defect with an FEV1 of 56% predicted. There is no significant bronchodilator response by strict ATS criteria. Spirograms are of good quality and plateau slowly, indicating slowly emptying areas of the lungs. The respiratory flow volume loop shows decreased expiratory flow rates at all lung volumes consistent with airway obstruction. Lung volumes by body plethysmography show a decreased total lung capacity at 3.58 L, 66% predicted. All other lung volumes are reduced symmetrically. Diffusion capacity by carbon monoxide is relatively preserved at 78% predicted. The airway resistance is elevated. No previous pulmonary function tests were available for review. Impression: Irreversible moderately severe mixed ventilatory defect with relatively preserved diffusion capacity
== END | disposition home or self-care (01) ==
LOC: PSN 10:29
PROVIDERS: PCP Family Medicine; Referring Provider Student in an Organized Health Care Education/Training Program; Visit Provider Student in an Organized Health Care Education/Training Program
DX: C34.11 Malignant neoplasm of upper lobe, right bronchus or lung (principal)
CPT/HCPCS: 94060; 94726; 94729

== ENCOUNTER 2022-06-12 10:30 | Outpatient (RCR) | payer MEDICARE, OTHER, SELFPAY ==
[2022-05-20 01:16] VITALS: BP 142/63; PULSE 71; RESP 20; TEMP 36.4
[2022-05-24 13:26] VITALS: BP 141/57; PULSE 81; RESP 18; TEMP 35.9
--- NOTE | 2022-05-24 14:39 | PN.PCM_ITS ---
History of Present Illness Date of Service: 05/24/22 Chief Complaint: right foot ulcer History of Wound: This 77-year-old male returns to the wound healing clinic for reoccurrence of a right medial foot ulcer. He has been changing the dressing with Aquacel Ag and the ulcer site is dry. He denies redness or odor. He denies fevers, chills, nausea, vomiting, diarrhea, loss of appetite, foot redness or odor. He has completed prior limb venous intervention with Dr. Calvillo. Additional intervention was not recommended. He denies redness or odor. He had an offloading surgical shoe and tries to keep weight on the heel. He is with his family member today. He is doing well. He is also recovering from a recent urinary tract infection continues on antibiotics and he also recovering from recent covid. Objective Data Objective Data Vital Signs: Vital Signs Temp Pulse Resp BP O2 Del Method 96.7 F L 81 18 141/57 H Room Air 05/24/22 13:26 05/24/22 13:26 05/24/22 13:26 05/24/22 13:26 05/24/22 13:26 Oxygen Delivery Method Room Air Debridement Note Debridement Note Post-Debridement Measurements and Additional Note: Post-Debridement Measurements/Treatment - Nurse 1 - General Ulcer Assessment Start: 05/24/22 13:26 Freq: Status: Active Protocol: HEMA Activity Type Activity Date Activity User E-sign Co-sign Detail Recorded Client Recorded Date Recorded By Document 05/24/22 13:26 [id number] 05/24/22 13:29 05/24/22 13:26 - Today's Visit Information Type of service Follow-up Visit (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 ) Arrival Mode Ambulatory,Cane Transfer Assistance None Accompanied by daughter in law Patient Identification Verified (Name & Yes ) Patient Requires Transmission-Based No Precautions Finger Stick Blood Sugar(mg/dl) (if 148 indicated): Blood Sugar Stated by Patient Vital Signs Temperature (97.8 F-99.1 F) 96.7 F L Temperature Source Temporal Pulse Rate (60-100) 81 Pulse Location Monitor Respiratory Rate (12-18) 18 Respiratory rate source Observation Oxygen Delivery Method Room Air Blood Pressure (90/60-120/80) 141/57 H Blood Pressure Mean (mm Hg) 85 Source Monitor Position Sitting Blood Pressure Location Right Arm History Since Last Visit- (Skip if this is Patient's initial visit) Have you changed medications since your No last visit? Any new allergies or adverse reactions No Signs or symptoms of abuse and/or No neglect since last visit Have you been in the hospital since your No last visit? Has dressing in place as prescribed Yes Has compression in place as prescribed N/A Has offloadiing in place as prescribed N/A Experienced any changes in pain level or No management Left Footwear Regular Shoe Right Footwear Surgical Shoe with pressure relief insole Pain Scale: 0-10 Numeric Is Patient Pain Free? Yes WC - Nurse 1 - General Ulcer Measurement Start: 05/24/22 13:26 Freq: Status: Active Protocol: Activity Type Activity Date Activity User E-sign Co-sign Detail Recorded Client Recorded Date Recorded By Document 05/24/22 13:26 MW [id number] 05/24/22 13:29 MW 05/24/22 13:26 Wound Center Nurse 1 #9 Right Inferior Hallux -Combined with other wound No -Current Size (cm) - Length 0.6 -Current Size (cm) - Width 0.5 -Current Size (cm) - Depth 0.3 -Total Square Cm 0.30 -Photo Taken No -Epithelialization None Present -Tunneling No -Undermining/Tunneling No -Circular Undermining No -Exudate Amt Small -Exudate Type Serosanguineous -Wound Margin Flat & Intact -Granulation Amt None Present (0 %) -Granulation Quality N/A -Slough/Fibrin Yes -Necrosis Amt Large (67-100%) -Necrotic Tissue Type Adherent Slough -Structure Exposed N/A -Texture (Anna-wound Skin Appearance) Assessed, Scarring -Moisture (Anna-wound Skin Appearance) No Abnormality, Assessed -Color (Anna-wound Skin Appearance) No Abnormality, Assessed -Temperature (Anna-wound Skin No Abnormality Appearance) (Pt Warm) -Tenderness on Palpation (Anna-wound No Skin Appearance) -Ulcer Cleansing Rinsed/ Irrigated with Saline -Foul Odor after Cleansing No -Anesthetic Used 5% Lidocaine Gel Lower Limb Edema Present No WC - Nurse 2 - General Ulcer CM Notes Start: 05/24/22 13:26 Freq: Status: Active Protocol: Activity Type Activity Date Activity User E-sign Co-sign Detail Recorded Client Recorded Date Recorded By Document 05/24/22 13:44 [id number] 05/24/22 13:49 05/24/22 13:44 Wound Center Nurse 2 #9 Right Inferior Hallux -Time 13:48 -Correct Patient Yes -Correct Side, Site, Position Yes -Correct Procedure Yes -Procedure Performed Yes -Type of Procedure Debridement -Clinical Debridement Subcutaneous -Tissue Removed Subcutaneous -Post Debridement (cm) - Length 0.7 -Post Debridement (cm) - Width 0.7 -Post Debridement (cm) - Depth 0.4 -Total Square (Post) (cm) 0.49 -Area of Debridement (cm) - Length 0.7 -Area of Debridement (cm) - Width 0.7 -Total Square (Area) (cm) 0.49 -Tunneling No -Undermining/Tunneling No -Circular Undermining No -Wound/Ulcer Outcome Not Healed -Ulcer Cleansing Rinsed/ Irrigated with Saline -Foul Odor after Cleansing No -Bioengineered Tissue No -Bleeding Controlled with Pressure -Treatment Response Procedure Tolerated Well -Offloading Yes -Type of Offloading Surgical Shoe -Debridement - Subq, 1st 20sq cm Yes Pain Scale: 0-10 Numeric Is Patient Pain Free? Yes - Nurse 3 - General Ulcer D/C NN Start: 05/24/22 13:26 Freq: Status: Active Protocol: Activity Type Activity Date Activity User E-sign Co-sign Detail Recorded Client Recorded Date Recorded By Document 05/24/22 14:02 MW [id number] 05/24/22 14:03 MW Edit Result 05/24/22 14:02 MW (1) [id number] 05/24/22 14:03 MW (1) Accompanied by self => daughter in law 05/24/22 14:02 Wound Care Nurse 3 #9 Right Inferior Hallux -Ulcer Cleansing Rinsed/ Irrigated with Saline -Foul Odor after Cleansing No -Negative Pressure Wound Therapy N/A -Primary Dressing Applied Mepilex Border, Promogran Cass Matter -Mepilex Border 1 -Promogran Cass Matter 1 Treatment Response Procedure Tolerated Well Pain Scale: 0-10 Numeric Is Patient Pain Free? Yes Teaching: Wound Center Dressing Your Wound -Person Taught Patient -Teaching Method Discussion, Demonstration -Response to teaching Verbalize understanding - Visit Discharge Discharge Condition Stable Ambulatory Status Ambulatory Transportation Private Auto Accompanied by daughter in law Medication Reconcilliation completed & No provided to patient/care provider Clinical Summary of Care Provided Yes
[2022-05-29 14:48] VITALS: BP 158/51; PULSE 75; TEMP 36.4
--- NOTE | 2022-05-29 16:12 | PN.PCM_ITS ---
History of Present Illness Date of Service: 05/29/22 Chief Complaint: right foot ulcer History of Wound: This 77-year-old male returns to the wound healing clinic for reoccurrence of a right medial foot ulcer. Wound care has been Moistened Cass covered with [place] SAP dressing. He denies redness or odor. He has completed prior limb venous intervention with Dr. Calvillo. Additional intervention was not recommended. He denies redness or odor. He had an offloading surgical shoe and tries to keep weight on the heel. He is with his family member today. He has been diagnosed with NSCLC-squamous cell Right lung, stage IIIA. He is going to be starting radiation treatment soon. He denies fevers, chills, nausea, vomiting, diarrhea, loss of appetite. Progress of Wound: Right medial foot ulcer is stable, it is not showing much improvement. It continues to have depth. Objective Data Objective Data Vital Signs: Vital Signs Temp Pulse Resp BP O2 Del Method 97.6 F L 75 18 158/51 H Room Air 05/29/22 14:48 05/29/22 14:48 05/24/22 13:26 05/29/22 14:48 05/24/22 13:26 Oxygen Delivery Method Room Air Charges/Coding Procedures Integumentary 111xxx-113xx: [id number] Mihaela subq tissue 20 sq cm/< Physical Exam Const alert and oriented x3 General Appearance: cooperative HEENT normocephalic Lymph Lymphatic: no lymphedema noted Resp normal respiratory effort Cardio regular rate Extremity normal to inspection and normal capillary refill Extremity Narrative: +1 edema right leg and foot. Skin Wound Narrative: Ulcer on right medial foot is stable. Wound bed is pink. Neuro CN's II-XII intact bilaterally Psych Appearance: grossly normal Debridement Note Debridement Note Wound debrided: medial foot ulcer Laterality: Right Type of Debridement: Excisional debridement Anesthesia Used: 5% Lidocaine Gel Depth: Down to and including healthy tissue and in the subcutaneous layer Percentage of wound debrided: 100 Instrument Used: 3mm curette Tissue Removed: Devitalized tissue and slough Severity: Fat Layer Exposed Amount of bleeding with debridement: Mild Bleeding Controlled with: Compression and gauze Patient tolerated procedure: Patient tolerated procedure well Post-Debridement Measurements and Additional Note: Post-Debridement Measurements/Treatment WC - Nurse 1 - General Ulcer Assessment Start: 05/24/22 13:26 Freq: Status: Active Protocol: HEMA Activity Type Activity Date Activity User E-sign Co-sign Detail Recorded Client Recorded Date Recorded By Document 05/24/22 13:26 MW [id number] 05/24/22 13:29 MW Document 05/29/22 14:48 KR [id number] 05/29/22 14:50 KR 05/24/22 05/29/22 13:26 14:48 - Today's Visit Information Type of service Follow-up Visit Follow-up Visit (Physician/AUTOMOTIVE SERVICE ASSISTANT (Physician/AUTOMOTIVE SERVICE ASSISTANT ) ) Arrival Mode Ambulatory,Cane Ambulatory Transfer Assistance None Accompanied by daughter in law Patient Identification Verified (Name & Yes Yes ) Patient Requires Transmission-Based No Precautions Finger Stick Blood Sugar(mg/dl) (if 148 indicated): Blood Sugar Stated by Patient Vital Signs Temperature (97.8 F-99.1 F) 96.7 F L 97.6 F L Temperature Source Temporal Temporal Pulse Rate (60-100) 81 75 Pulse Location Monitor Monitor Respiratory Rate (12-18) 18 Respiratory rate source Observation Oxygen Delivery Method Room Air Blood Pressure (90/60-120/80) 141/57 H 158/51 H Blood Pressure Mean (mm Hg) 85 86 Source Monitor Monitor Position Sitting Sitting Blood Pressure Location Right Arm Right Arm History Since Last Visit- (Skip if this is Patient's initial visit) Have you changed medications since your No No last visit? Any new allergies or adverse reactions No No Had a fall/change in ADL's that may No increase risk of falls Signs or symptoms of abuse and/or No No neglect since last visit Have you been in the hospital since your No No last visit? Has dressing in place as prescribed Yes Yes Has compression in place as prescribed N/A Yes Has offloadiing in place as prescribed N/A N/A Experienced any changes in pain level or No No management Left Footwear Regular Shoe Regular Shoe Right Footwear Surgical Shoe Surgical Shoe with pressure with pressure relief insole relief insole Pain Scale: 0-10 Numeric Is Patient Pain Free? Yes Yes - Nurse 1 - General Ulcer Measurement Start: 05/24/22 13:26 Freq: Status: Active Protocol: Activity Type Activity Date Activity User E-sign Co-sign Detail Recorded Client Recorded Date Recorded By Document 05/24/22 13:26 MW [id number] 05/24/22 13:29 MW Document 05/29/22 14:48 KR [id number] 05/29/22 14:50 KR 05/24/22 05/29/22 13:26 14:48 Wound Center Nurse 1 #9 Right Inferior Hallux -Combined with other wound No -Current Size (cm) - Length 0.6 0.6 -Current Size (cm) - Width 0.5 0.5 -Current Size (cm) - Depth 0.3 0.4 -Total Square Cm 0.30 0.30 -Photo Taken No -Epithelialization None Present -Tunneling No -Undermining/Tunneling No -Circular Undermining No -Exudate Amt Small Small -Exudate Type Serosanguineous Serosanguineous -Wound Margin Flat & Intact Distinct, Outline Attached -Granulation Amt None Present (0 Medium (34-66%) %) -Granulation Quality N/A [place] -Slough/Fibrin Yes -Necrosis Amt Large (67-100%) Small (1-33%) -Necrotic Tissue Type Adherent Slough Adherent Slough -Structure Exposed N/A -Texture (Anna-wound Skin Appearance) Assessed, Assessed, Scarring Scarring -Moisture (Anna-wound Skin Appearance) No Abnormality, No Abnormality, Assessed Assessed -Color (Anna-wound Skin Appearance) No Abnormality, No Abnormality, Assessed Assessed -Temperature (Anna-wound Skin No Abnormality No Abnormality Appearance) (Pt Warm) (Pt Warm) -Tenderness on Palpation (Anna-wound No No Skin Appearance) -Ulcer Cleansing Rinsed/ Rinsed/ Irrigated with Irrigated with Saline Saline -Foul Odor after Cleansing No No -Anesthetic Used 5% Lidocaine 5% Lidocaine Gel Gel Lower Limb Edema Present No WC - Nurse 2 - General Ulcer CM Notes Start: 05/24/22 13:26 Freq: Status: Active Protocol: Activity Type Activity Date Activity User E-sign Co-sign Detail Recorded Client Recorded Date Recorded By Document 05/24/22 13:44 [id number] 05/24/22 13:49 Document 05/29/22 15:40 [id number] 05/29/22 15:46 05/24/22 05/29/22 13:44 15:40 Wound Center Nurse 2 #9 Right Inferior Hallux -Time 13:48 15:41 -Correct Patient Yes Yes -Correct Side, Site, Position Yes Yes -Correct Procedure Yes Yes -Procedure Performed Yes Yes -Type of Procedure Debridement Debridement -Clinical Debridement Subcutaneous Subcutaneous -Tissue Removed Subcutaneous Subcutaneous -Post Debridement (cm) - Length 0.7 0.7 -Post Debridement (cm) - Width 0.7 0.7 -Post Debridement (cm) - Depth 0.4 0.3 -Total Square (Post) (cm) 0.49 0.49 -Area of Debridement (cm) - Length 0.7 0.7 -Area of Debridement (cm) - Width 0.7 0.7 -Total Square (Area) (cm) 0.49 0.49 -Tunneling No No -Undermining/Tunneling No No -Circular Undermining No No -Wound/Ulcer Outcome Not Healed Not Healed -Ulcer Cleansing Rinsed/ Rinsed/ Irrigated with Irrigated with Saline Saline -Foul Odor after Cleansing No No -Bioengineered Tissue No No -Bleeding Controlled with Pressure Pressure -Treatment Response Procedure Procedure Tolerated Well Tolerated Well -Offloading Yes No -Type of Offloading Surgical Shoe -Debridement - Subq, 1st 20sq cm Yes Yes Pain Scale: 0-10 Numeric Is Patient Pain Free? Yes Yes WC - Nurse 3 - General Ulcer D/C NN Start: 05/24/22 13:26 Freq: Status: Active Protocol: Activity Type Activity Date Activity User E-sign Co-sign Detail Recorded Client Recorded Date Recorded By Document 05/24/22 14:02 MW [id number] 05/24/22 14:03 MW Edit Result 05/24/22 14:02 MW (1) [id number] 05/24/22 14:03 MW Document 05/29/22 16:01 DL [id number] 05/29/22 16:02 DL (1) Accompanied by self => daughter in law 05/24/22 05/29/22 14:02 16:01 Wound Care Nurse 3 #9 Right Inferior Hallux -Ulcer Cleansing Rinsed/ Rinsed/ Irrigated with Irrigated with Saline Saline -Foul Odor after Cleansing No No -Negative Pressure Wound Therapy N/A -Primary Dressing Applied Mepilex Border, Mepilex Border, Promogran Promogran Cass Matter Cass Matter -Mepilex Border 1 1 -Promogran Cass Matter 1 1 Treatment Response Procedure Procedure Tolerated Well Tolerated Well Pain Scale: 0-10 Numeric Is Patient Pain Free? Yes Yes Teaching: Wound Center Dressing Your Wound -Person Taught Patient -Teaching Method Discussion, Demonstration -Response to teaching Verbalize understanding WC - Visit Discharge Discharge Condition Stable Stable Ambulatory Status Ambulatory Ambulatory,Cane Transportation Private Auto Private Auto Accompanied by daughter in law Medication Reconcilliation completed & No provided to patient/care provider Clinical Summary of Care Provided Yes Facility Type Home Health Orders Sent Yes Assessment/Plan Assessment/Plan (1) Ulcer of right foot with fat layer exposed: CODE(S): L97.512 - Non-pressure chronic ulcer of other part of right foot with fat layer exposed (2) Peripheral vascular occlusive disease: CODE(S): I73.9 - Peripheral vascular disease, unspecified (3) Type 2 diabetes mellitus with diabetic polyneuropathy: CODE(S): E11.42 - Type 2 diabetes mellitus with diabetic polyneuropathy (4) Venous insufficiency: (5) Lower extremity edema: CODE(S): R60.0 - Localized edema PLAN: Plan Patient was evaluated at the wound healing center today. A subcutaneous debridement was performed as documented. Wound care - Cass primary dressing covered with [place] SAP (secondary dressing) every other day after washing foot with soap and water. Compression - Single tubigrip Off-loading - Post op shoe, adjusted to take the pressure off the ulcer. Vascular:? 12/19/21 - Right EULALIA - 1.15, Left EULALIA 1.06. Right digital 0.74, Left digital 0.71, bilateral triphasic. Venous studies showed bilateral no DVT, Bilateral calf with primary veins with reflux, bilateral SPJ reflux. Wound culture obtained on 05/18/22 which was positive for Staphylococcus pseudintermediu, Staphylococcus saprophyticus and Anaerobic cocci. Continue Augmentin. Encouraged high protein diet that is low in carbohydrates and sodium. Follow up two weeks.
[2022-06-12 10:32] VITALS: BP 149/63; PULSE 59; RESP 18; TEMP 36.3
--- NOTE | 2022-06-12 12:20 | PN.PCM_ITS ---
History of Present Illness Date of Service: 06/12/22 Chief Complaint: right foot ulcer History of Wound: This 77-year-old male returns to the wound healing clinic for reoccurrence of a right medial foot ulcer. Wound care has been Moistened Cass covered with [place] SAP dressing. He denies redness or odor. He has completed prior limb venous intervention with Dr. Calvillo. Additional intervention was not recommended. He denies redness or odor. He had an offloading surgical shoe and tries to keep weight on the heel. He is with his family member today. He has been diagnosed with NSCLC-squamous cell Right lung, stage IIIA. He is going to be starting radiation treatment soon. He denies fevers, chills, nausea, vomiting, diarrhea, loss of appetite. Progress of Wound: Right medial foot ulcer is stable. It continues to have depth. Wound bed is nice beefy pink. He starts Radiation this week. Objective Data Objective Data Vital Signs: Vital Signs Temp Pulse Resp BP O2 Del Method 97.3 F L 59 L 18 149/63 H Room Air 06/12/22 10:32 06/12/22 10:32 06/12/22 10:32 06/12/22 10:32 05/24/22 13:26 Oxygen Delivery Method Room Air Charges/Coding Procedures Integumentary 111xxx-113xx: 06303 Mihaela subq tissue 20 sq cm/< Debridement Note Debridement Note Wound debrided: medial foot ulcer Laterality: Right Wound Grade/Stage: Stage II Type of Debridement: Excisional debridement Anesthesia Used: 5% Lidocaine Gel Depth: Down to and including healthy tissue and in the subcutaneous layer Percentage of wound debrided: 100 Instrument Used: 3mm curette Tissue Removed: Devitalized tissue and slough Severity: Fat Layer Exposed Amount of bleeding with debridement: Mild Bleeding Controlled with: Compression and gauze Patient tolerated procedure: Patient tolerated procedure well Post-Debridement Measurements and Additional Note: Post-Debridement Measurements/Treatment URBAN - Nurse 1 - General Ulcer Assessment Start: 05/24/22 13:26 Freq: Status: Active Protocol: HEMA Activity Type Activity Date Activity User E-sign Co-sign Detail Recorded Client Recorded Date Recorded By Document 05/24/22 13:26 MW [id number] 05/24/22 13:29 MW Document 10/10/22 14:48 KR [id number] 05/29/22 14:50 KR Document 06/12/22 10:32 DL [id number] 06/12/22 10:39 DL 05/24/22 05/29/22 06/12/22 13:26 14:48 10:32 - Today's Visit Information Type of service Follow-up Visit Follow-up Visit Follow-up Visit (Physician/MARKETING CONTENT COORDINATOR (Physician/MARKETING CONTENT COORDINATOR (Physician/MARKETING CONTENT COORDINATOR ) ) ) Arrival Mode Ambulatory,Cane Ambulatory Ambulatory,Cane Transfer Assistance None None Accompanied by daughter in law Patient Identification Verified (Name & Yes Yes Yes ) Patient Requires Transmission-Based No No Precautions Finger Stick Blood Sugar(mg/dl) (if 148 151 indicated): Blood Sugar Stated by Stated by Patient Patient Vital Signs Temperature (97.8 F-99.1 F) 96.7 F L 97.6 F L 97.3 F L Temperature Source Temporal Temporal Temporal Pulse Rate (60-100) 81 75 59 L Pulse Location Monitor Monitor Monitor Respiratory Rate (12-18) 18 18 Respiratory rate source Observation Observation Oxygen Delivery Method Room Air Blood Pressure (90/60-120/80) 141/57 H 158/51 H 149/63 H Blood Pressure Mean (mm Hg) 85 86 91 Source Monitor Monitor Monitor Position Sitting Sitting Blood Pressure Location Right Arm Right Arm History Since Last Visit- (Skip if this is Patient's initial visit) Have you changed medications since your No No No last visit? Any new allergies or adverse reactions No No No Had a fall/change in ADL's that may No No increase risk of falls Signs or symptoms of abuse and/or No No No neglect since last visit Have you been in the hospital since your No No No last visit? Has dressing in place as prescribed Yes Yes Yes Has compression in place as prescribed N/A Yes N/A Has offloadiing in place as prescribed N/A N/A Yes Experienced any changes in pain level or No No No management Left Footwear Regular Shoe Regular Shoe Right Footwear Surgical Shoe Surgical Shoe with pressure with pressure relief insole relief insole Pain Scale: 0-10 Numeric Is Patient Pain Free? Yes Yes Yes - Nurse 1 - General Ulcer Measurement Start: 05/24/22 13:26 Freq: Status: Active Protocol: Activity Type Activity Date Activity User E-sign Co-sign Detail Recorded Client Recorded Date Recorded By Document 05/24/22 13:26 MW [id number] 05/24/22 13:29 MW Document 05/29/22 14:48 KR [id number] 05/29/22 14:50 KR Document 06/12/22 10:32 DL [id number] 06/12/22 10:39 DL 05/24/22 05/29/22 06/12/22 13:26 14:48 10:32 Wound Center Nurse 1 #9 Right Inferior Hallux -Combined with other wound No -Current Size (cm) - Length 0.6 0.6 0.6 -Current Size (cm) - Width 0.5 0.5 0.6 -Current Size (cm) - Depth 0.3 0.4 0.2 -Total Square Cm 0.30 0.30 0.36 -Photo Taken No No -Epithelialization None Present -Tunneling No -Undermining/Tunneling No -Circular Undermining No -Exudate Amt Small Small Small -Exudate Type Serosanguineous Serosanguineous Serosanguineous -Wound Margin Flat & Intact Distinct, Thickened Outline Attached -Granulation Amt None Present (0 Medium (34-66%) Large (67-100%) %) -Granulation Quality N/A Steele Pale,Steele -Slough/Fibrin Yes -Necrosis Amt Large (67-100%) Small (1-33%) Small (1-33%) -Necrotic Tissue Type Adherent Slough Adherent Slough Adherent Slough -Structure Exposed N/A N/A -Texture (Anna-wound Skin Appearance) Assessed, Assessed, Callus,Scarring Scarring Scarring -Moisture (Anna-wound Skin Appearance) No Abnormality, No Abnormality, No Abnormality Assessed Assessed -Color (Anna-wound Skin Appearance) No Abnormality, No Abnormality, No Abnormality Assessed Assessed -Temperature (Anna-wound Skin No Abnormality No Abnormality No Abnormality Appearance) (Pt Warm) (Pt Warm) (Pt Warm) -Tenderness on Palpation (Anna-wound No No No Skin Appearance) -Ulcer Cleansing Rinsed/ Rinsed/ Rinsed/ Irrigated with Irrigated with Irrigated with Saline Saline Saline -Foul Odor after Cleansing No No No -Anesthetic Used 5% Lidocaine 5% Lidocaine 5% Lidocaine Gel Gel Gel Lower Limb Edema Present No WC - Nurse 2 - General Ulcer CM Notes Start: 05/24/22 13:26 Freq: Status: Active Protocol: Activity Type Activity Date Activity User E-sign Co-sign Detail Recorded Client Recorded Date Recorded By Document 05/24/22 13:44 [id number] 05/24/22 13:49 Document 05/29/22 15:40 [id number] 05/29/22 15:46 Document 06/12/22 11:06 [id number] 06/12/22 11:11 05/24/22 05/29/22 06/12/22 13:44 15:40 11:06 Wound Center Nurse 2 #9 Right Inferior Hallux -Time 13:48 15:41 11:06 -Correct Patient Yes Yes Yes -Correct Side, Site, Position Yes Yes Yes -Correct Procedure Yes Yes Yes -Procedure Performed Yes Yes Yes -Type of Procedure Debridement Debridement Debridement -Clinical Debridement Subcutaneous Subcutaneous Subcutaneous -Tissue Removed Subcutaneous Subcutaneous Subcutaneous -Post Debridement (cm) - Length 0.7 0.7 0.7 -Post Debridement (cm) - Width 0.7 0.7 0.7 -Post Debridement (cm) - Depth 0.4 0.3 0.2 -Total Square (Post) (cm) 0.49 0.49 0.49 -Area of Debridement (cm) - Length 0.7 0.7 0.7 -Area of Debridement (cm) - Width 0.7 0.7 0.7 -Total Square (Area) (cm) 0.49 0.49 0.49 -Tunneling No No No -Undermining/Tunneling No No No -Circular Undermining No No No -Wound/Ulcer Outcome Not Healed Not Healed Not Healed -Ulcer Cleansing Rinsed/ Rinsed/ Rinsed/ Irrigated with Irrigated with Irrigated with Saline Saline Saline -Foul Odor after Cleansing No No No -Bioengineered Tissue No No No -Bleeding Controlled with Pressure Pressure Pressure -Treatment Response Procedure Procedure Procedure Tolerated Well Tolerated Well Tolerated Well -Offloading Yes No Yes -Type of Offloading Surgical Shoe Surgical Shoe -Assistive Device(s) Cane -Debridement - Subq, 1st 20sq cm Yes Yes Yes Pain Scale: 0-10 Numeric Is Patient Pain Free? Yes Yes Yes - Nurse 3 - General Ulcer D/C NN Start: 05/24/22 13:26 Freq: Status: Active Protocol: Activity Type Activity Date Activity User E-sign Co-sign Detail Recorded Client Recorded Date Recorded By Document 05/24/22 14:02 MW [id number] 05/24/22 14:03 MW Edit Result 05/24/22 14:02 MW (1) [id number] 05/24/22 14:03 MW Document 05/29/22 16:01 DL [id number] 05/29/22 16:02 DL (1) Accompanied by self => daughter in law 05/24/22 05/29/22 14:02 16:01 Wound Care Nurse 3 #9 Right Inferior Hallux -Ulcer Cleansing Rinsed/ Rinsed/ Irrigated with Irrigated with Saline Saline -Foul Odor after Cleansing No No -Negative Pressure Wound Therapy N/A -Primary Dressing Applied Mepilex Border, Mepilex Border, Promogran Promogran Cass Matter Cass Matter -Mepilex Border 1 1 -Promogran Cass Matter 1 1 Treatment Response Procedure Procedure Tolerated Well Tolerated Well Pain Scale: 0-10 Numeric Is Patient Pain Free? Yes Yes Teaching: Wound Center Dressing Your Wound -Person Taught Patient -Teaching Method Discussion, Demonstration -Response to teaching Verbalize understanding WC - Visit Discharge Discharge Condition Stable Stable Ambulatory Status Ambulatory Ambulatory,Cane Transportation Private Auto Private Auto Accompanied by daughter in law Medication Reconcilliation completed & No provided to patient/care provider Clinical Summary of Care Provided Yes Facility Type Home Health Orders Sent Yes Assessment/Plan Assessment/Plan (1) Ulcer of right foot with fat layer exposed: CODE(S): L97.512 - Non-pressure chronic ulcer of other part of right foot with fat layer exposed (2) Peripheral vascular occlusive disease: CODE(S): I73.9 - Peripheral vascular disease, unspecified (3) Type 2 diabetes mellitus with diabetic polyneuropathy: CODE(S): E11.42 - Type 2 diabetes mellitus with diabetic polyneuropathy (4) Venous insufficiency: (5) Lower extremity edema: CODE(S): R60.0 - Localized edema PLAN: Plan Patient was evaluated at the wound healing center today. A subcutaneous debridement was performed as documented. Wound care - Cass primary dressing covered with [place] SAP (secondary dressing) every other day after washing foot with soap and water. Compression - Single tubigrip Off-loading - Post op shoe, adjusted to take the pressure off the ulcer. Vascular:? 12/19/21 - Right EULALIA - 1.15, Left EULALIA 1.06. Right digital 0.74, Left digital 0.71, bilateral triphasic. Venous studies showed bilateral no DVT, Bilateral calf with primary veins with reflux, bilateral SPJ reflux. Wound culture obtained on 05/18/22 which was positive for Staphylococcus pseudintermediu, Staphylococcus saprophyticus and Anaerobic cocci. Continue Augmentin. Encouraged high protein diet that is low in carbohydrates and sodium. Follow up two weeks.
== END 2022-06-19 23:59 | disposition home or self-care (01) ==
LOC: WC 10:30
PROVIDERS: PCP Family Medicine; Visit Provider Nurse Practitioner Family
DX: E11.621 Type 2 diabetes mellitus with foot ulcer (principal); C34.91 Malignant neoplasm of unspecified part of right bronchus or lung; E11.51 Type 2 diabetes mellitus with diabetic peripheral angiopathy without gangrene; L97.512 Non-pressure chronic ulcer of other part of right foot with fat layer exposed; E11.59 Type 2 diabetes mellitus with other circulatory complications; E11.42 Type 2 diabetes mellitus with diabetic polyneuropathy; I87.2 Venous insufficiency (chronic) (peripheral); R60.0 Localized edema
CPT/HCPCS: 11042

== ENCOUNTER 2022-07-18 13:30 | Outpatient (RCR) | payer MEDICARE, OTHER, SELFPAY ==
[2022-06-20 00:26] VITALS: BP 149/63; PULSE 59; RESP 18; TEMP 36.3
[2022-06-26 11:28] VITALS: BP 143/52; PULSE 69; TEMP 36.6
--- NOTE | 2022-06-26 12:27 | PN.PCM_ITS ---
History of Present Illness Date of Service: 06/26/22 Chief Complaint: right foot ulcer History of Wound: This 77-year-old male returns to the wound healing clinic for reoccurrence of a right medial foot ulcer. Wound care has been Moistened Cass covered with [place] SAP dressing. He denies redness or odor. He has completed prior limb venous intervention with Dr. Calvillo. Additional intervention was not recommended. He denies redness or odor. He had an offloading surgical shoe and tries to keep weight on the heel. He is with his family member today. He has been diagnosed with NSCLC-squamous cell Right lung, stage IIIA. He is going to be starting radiation treatment soon. He denies fevers, chills, nausea, vomiting, diarrhea, loss of appetite. Progress of Wound: Right medial foot ulcer is deeper with undermining around the entire circumference of the ulcer. Wound bed is nice beefy pink. Upon examining his offloading post surgical shoe, it needs to have adjustments. He is currently receiving radiation daily (M-F), therefore is walking more than he typically does. Objective Data Objective Data Vital Signs: Vital Signs Temp Pulse Resp BP 97.9 F 69 18 143/52 H 06/26/22 11:28 06/26/22 11:28 06/20/22 00:26 06/26/22 11:28 Charges/Coding Procedures Integumentary 111xxx-113xx: 62621 Mihaela subq tissue 20 sq cm/< Debridement Note Debridement Note Wound debrided: medial foot ulcer Laterality: Right Wound Grade/Stage: Stage II Type of Debridement: Excisional debridement Anesthesia Used: 5% Lidocaine Gel Depth: Down to and including healthy tissue and in the subcutaneous layer Percentage of wound debrided: 100 Instrument Used: 3mm curette and #15 blade (and pick ups) Tissue Removed: Devitalized tissue and slough Severity: Fat Layer Exposed Amount of bleeding with debridement: Mild Bleeding Controlled with: Compression and gauze Patient tolerated procedure: Patient tolerated procedure well Post-Debridement Measurements and Additional Note: Post-Debridement Measurements/Treatment URBAN - Nurse 1 - General Ulcer Assessment Start: 06/26/22 11:28 Freq: Status: Active Protocol: HEMA Activity Type Activity Date Activity User E-sign Co-sign Detail Recorded Client Recorded Date Recorded By Document 06/26/22 11:28 AVEL [id number] 06/26/22 11:30 IN 06/26/22 11:28 WC - Today's Visit Information Type of service Follow-up Visit (Physician/CLOTHES DRIER REPAIRER ) Arrival Mode Ambulatory Patient Identification Verified (Name & No ) Patient Requires Transmission-Based No Precautions Safety Precautions NA Vital Signs Temperature (97.8 F-99.1 F) 97.9 F Temperature Source Temporal Pulse Rate (60-100) 69 Pulse Location Monitor Blood Pressure (90/60-120/80) 143/52 H Blood Pressure Mean (mm Hg) 82 Source Monitor History Since Last Visit- (Skip if this is Patient's initial visit) Have you changed medications since your No last visit? Any new allergies or adverse reactions No Had a fall/change in ADL's that may No increase risk of falls Signs or symptoms of abuse and/or No neglect since last visit Have you been in the hospital since your No last visit? Has dressing in place as prescribed Yes Has compression in place as prescribed N/A Has offloadiing in place as prescribed N/A Experienced any changes in pain level or No management Left Footwear Regular Shoe Right Footwear Regular Shoe Pain Scale: 0-10 Numeric Is Patient Pain Free? No - Nurse 1 - General Ulcer Measurement Start: 06/26/22 11:28 Freq: Status: Active Protocol: Activity Type Activity Date Activity User E-sign Co-sign Detail Recorded Client Recorded Date Recorded By Document 06/26/22 11:28 IN [id number] 06/26/22 11:30 IN 06/26/22 11:28 Wound Center Nurse 1 #9 Right Inferior Hallux -Combined with other wound No -Current Size (cm) - Length 0.5 -Current Size (cm) - Width 0.8 -Current Size (cm) - Depth 0.2 -Total Square Cm 0.40 -Date of Last Picture (Recall this 06/26/22 field) -Photo Taken Yes -Tunneling No -Undermining/Tunneling No -Circular Undermining No -Change in Wound Grade/Stage No -Exudate Amt Medium -Exudate Type Serosanguineous -Wound Margin Distinct, Outline Attached -Granulation Amt Medium (34-66%) -Granulation Quality N/A -Slough/Fibrin Yes -Necrosis Amt Large (67-100%) -Necrotic Tissue Type Adherent Slough -Structure Exposed N/A -Texture (Anna-wound Skin Appearance) No Abnormality, Assessed -Moisture (Anna-wound Skin Appearance) No Abnormality, Assessed -Color (Anna-wound Skin Appearance) No Abnormality, Assessed -Temperature (Anna-wound Skin No Abnormality Appearance) (Pt Warm) -Tenderness on Palpation (Anna-wound No Skin Appearance) -Ulcer Cleansing Soap and Water -Foul Odor after Cleansing No -Anesthetic Used 5% Lidocaine Gel WC - Nurse 2 - General Ulcer CM Notes Start: 06/26/22 11:28 Freq: Status: Active Protocol: Activity Type Activity Date Activity User E-sign Co-sign Detail Recorded Client Recorded Date Recorded By Document 06/26/22 12:08 DORA [id number] 06/26/22 12:17 DORA 06/26/22 12:08 Wound Center Nurse 2 -Time 12:08 -Correct Patient Yes -Correct Side, Site, Position Yes -Correct Procedure Yes -Procedure Performed Yes -Type of Procedure Debridement -Clinical Debridement Subcutaneous -Tissue Removed Subcutaneous -Post Debridement (cm) - Length 0.8 -Post Debridement (cm) - Width 1 -Post Debridement (cm) - Depth 0.2 -Total Square (Post) (cm) 0.8 -Area of Debridement (cm) - Length 0.8 -Area of Debridement (cm) - Width 1.0 -Total Square (Area) (cm) 0.80 -Tunneling No -Undermining/Tunneling No -Circular Undermining No -Wound/Ulcer Outcome Not Healed -Ulcer Cleansing Rinsed/ Irrigated with Saline -Foul Odor after Cleansing No -Bioengineered Tissue No -Bleeding Controlled with Pressure -Treatment Response Procedure Tolerated Well -Offloading Yes -Type of Offloading Surgical Shoe -Debridement - Subq, 1st 20sq cm Yes Pain Scale: 0-10 Numeric Is Patient Pain Free? Yes Assessment/Plan Assessment/Plan (1) Ulcer of right foot with fat layer exposed: CODE(S): L97.512 - Non-pressure chronic ulcer of other part of right foot with fat layer exposed (2) Peripheral vascular occlusive disease: CODE(S): I73.9 - Peripheral vascular disease, unspecified (3) Type 2 diabetes mellitus with diabetic polyneuropathy: CODE(S): E11.42 - Type 2 diabetes mellitus with diabetic polyneuropathy (4) Venous insufficiency: (5) Lower extremity edema: CODE(S): R60.0 - Localized edema PLAN: Plan Patient was evaluated at the wound healing center today. A subcutaneous debridement was performed as documented. Wound care - Cass primary dressing covered with [place] SAP (secondary dressing) every other day after washing foot with soap and water. Compression - Single tubigrip Off-loading - Post op shoe needs adjusted, will have him see one of the podiatrists here at the wound center next week to adjust his shoe properly. This week he can use Aperture pads to help prevent pressure on the area. Vascular:? 12/19/21 - Right EULALIA - 1.15, Left EULALIA 1.06. Right digital 0.74, Left digital 0.71, bilateral triphasic. Venous studies showed bilateral no DVT, Bilateral calf with primary veins with reflux, bilateral SPJ reflux. Wound culture obtained on 05/18/22 which was positive for Staphylococcus pseudintermediu, Staphylococcus saprophyticus and Anaerobic cocci. Continue Augmentin. Encouraged high protein diet that is low in carbohydrates and sodium. Follow up one week with one of the podiatrists at the wound center to have his shoe adjusted to off load his right medial foot ulcer. Follow up two weeks with me. Call or come in sooner if develop any issues.
[2022-07-04 11:12] VITALS: BP 149/47; PULSE 69; RESP 18; TEMP 36.2
--- NOTE | 2022-07-04 12:26 | PCM.WC.PN ---
History of Present Illness Date of Service: 07/04/22 Chief Complaint: right foot ulcer History of Wound: This 77-year-old male returns to the wound healing clinic for reoccurrence of a right medial foot ulcer. Wound care has been Moistened Cass covered with [place] SAP dressing. Patient diabetic neuropathic. 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 Patient offloading right foot with surgical shoe. Patient denies constitutional's or pains at this time. No other complaints. Progress of Wound: Right medial foot ulcer is deeper with undermining around the entire circumference of the ulcer. Wound bed is nice beefy pink. Upon examining his offloading post surgical shoe, it needs to have adjustments. He is currently receiving radiation daily (M-F), therefore is walking more than he typically does. Objective Data Objective Data Vital Signs: Vital Signs Temp Pulse Resp BP 97.1 F L 69 18 149/47 H 07/04/22 11:12 07/04/22 11:12 07/04/22 11:12 07/04/22 11:12 Physical Exam Narrative Neurovascular status unchanged from previous visit. Full-thickness ulceration noted to the medial aspect of the first metatarsal phalangeal joint. This wound demonstrates significant periwound hyperkeratosis with some periwound erythema and edema that appears. Improved from previous visit. Minimal drainage no other signs of infection no deep probing or undermining at this time. Hallux valgus deformity noted to the right foot which is appears to be the apex of deformity for the wound formation Debridement Note Debridement Note Post-Debridement Measurements and Additional Note: Post-Debridement Measurements/Treatment - Nurse 1 - General Ulcer Assessment Start: 06/26/22 11:28 Freq: Status: Active Protocol: HEMA Activity Type Activity Date Activity User E-sign Co-sign Detail Recorded Client Recorded Date Recorded By Document 06/26/22 11:28 AK [id number] 06/26/22 11:30 AK Document 07/04/22 11:12 DL [id number] 07/04/22 11:19 DL 06/26/22 07/04/22 11:28 11:12 - Today's Visit Information Type of service Follow-up Visit Follow-up Visit (Physician/NUISANCE WILDLIFE SPECIALIST (Physician/NUISANCE WILDLIFE SPECIALIST ) ) Arrival Mode Ambulatory Ambulatory,Cane Transfer Assistance None Patient Identification Verified (Name & No Yes ) Patient Requires Transmission-Based No No Precautions Safety Precautions NA Finger Stick Blood Sugar(mg/dl) (if 151 indicated): Blood Sugar Stated by Patient Vital Signs Temperature (97.8 F-99.1 F) 97.9 F 97.1 F L Temperature Source Temporal Temporal Pulse Rate (60-100) 69 69 Pulse Location Monitor Monitor Respiratory Rate (12-18) 18 Respiratory rate source Observation Blood Pressure (90/60-120/80) 143/52 H 149/47 H Blood Pressure Mean (mm Hg) 82 81 Source Monitor Monitor History Since Last Visit- (Skip if this is Patient's initial visit) Have you changed medications since your No No last visit? Any new allergies or adverse reactions No No Had a fall/change in ADL's that may No No increase risk of falls Signs or symptoms of abuse and/or No No neglect since last visit Have you been in the hospital since your No last visit? Has dressing in place as prescribed Yes Yes Has compression in place as prescribed N/A N/A Has offloadiing in place as prescribed N/A Yes Experienced any changes in pain level or No No management Left Footwear Regular Shoe Right Footwear Regular Shoe Pain Scale: 0-10 Numeric Is Patient Pain Free? No Yes WC - Nurse 1 - General Ulcer Measurement Start: 06/26/22 11:28 Freq: Status: Active Protocol: Activity Type Activity Date Activity User E-sign Co-sign Detail Recorded Client Recorded Date Recorded By Document 06/26/22 11:28 AK [id number] 06/26/22 11:30 AK Document 07/04/22 11:12 DL [id number] 07/04/22 11:19 DL 06/26/22 07/04/22 11:28 11:12 Wound Center Nurse 1 #9 Right Inferior Hallux -Combined with other wound No -Current Size (cm) - Length 0.5 0.7 -Current Size (cm) - Width 0.8 0.8 -Current Size (cm) - Depth 0.2 0.5 -Total Square Cm 0.40 0.56 -Date of Last Picture (Recall this 06/26/22 field) -Photo Taken Yes No -Tunneling No -Undermining/Tunneling No -Circular Undermining No -Change in Wound Grade/Stage No -Exudate Amt Medium Small -Exudate Type Serosanguineous Serosanguineous -Wound Margin Distinct, Thickened Outline Attached -Granulation Amt Medium (34-66%) None Present (0 %) -Granulation Quality N/A -Slough/Fibrin Yes -Necrosis Amt Large (67-100%) Large (67-100%) -Necrotic Tissue Type Adherent Slough Adherent Slough -Structure Exposed N/A N/A -Texture (Anna-wound Skin Appearance) No Abnormality, Callus,Scarring Assessed -Moisture (Anna-wound Skin Appearance) No Abnormality, Dry/Scaly Assessed -Color (Anna-wound Skin Appearance) No Abnormality, No Abnormality Assessed -Temperature (Anna-wound Skin No Abnormality No Abnormality Appearance) (Pt Warm) (Pt Warm) -Tenderness on Palpation (Anna-wound No Skin Appearance) -Ulcer Cleansing Soap and Water Rinsed/ Irrigated with Saline -Foul Odor after Cleansing No No -Anesthetic Used 5% Lidocaine 5% Lidocaine Gel Gel WC - Nurse 2 - General Ulcer CM Notes Start: 06/26/22 11:28 Freq: Status: Active Protocol: Activity Type Activity Date Activity User E-sign Co-sign Detail Recorded Client Recorded Date Recorded By Document 06/26/22 12:08 [id number] 06/26/22 12:17 Document 07/04/22 11:39 [id number] 07/04/22 11:44 06/26/22 07/04/22 12:08 11:39 Wound Center Nurse 2 #9 Right Inferior Hallux -Time 12:08 11:39 -Correct Patient Yes Yes -Correct Side, Site, Position Yes Yes -Correct Procedure Yes Yes -Procedure Performed Yes Yes -Type of Procedure Debridement Debridement -Clinical Debridement Subcutaneous Subcutaneous -Tissue Removed Subcutaneous Subcutaneous -Post Debridement (cm) - Length 0.8 0.8 -Post Debridement (cm) - Width 1 1 -Post Debridement (cm) - Depth 0.2 0.4 -Total Square (Post) (cm) 0.8 0.8 -Area of Debridement (cm) - Length 0.8 0.8 -Area of Debridement (cm) - Width 1.0 1.0 -Total Square (Area) (cm) 0.80 0.80 -Tunneling No No -Undermining/Tunneling No No -Circular Undermining No No -Wound/Ulcer Outcome Not Healed Not Healed -Ulcer Cleansing Rinsed/ Rinsed/ Irrigated with Irrigated with Saline Saline -Foul Odor after Cleansing No No -Bioengineered Tissue No No -Bleeding Controlled with Pressure Pressure -Treatment Response Procedure Procedure Tolerated Well Tolerated Well -Offloading Yes Yes -Type of Offloading Surgical Shoe Surgical Shoe -Debridement - Subq, 1st 20sq cm Yes Yes Pain Scale: 0-10 Numeric Is Patient Pain Free? Yes Yes - Nurse 3 - General Ulcer D/C NN Start: 06/26/22 11:28 Freq: Status: Active Protocol: Activity Type Activity Date Activity User E-sign Co-sign Detail Recorded Client Recorded Date Recorded By Document 06/26/22 15:29 AK [id number] 06/26/22 15:30 AK Document 07/04/22 11:59 DL [id number] 07/04/22 12:01 DL 06/26/22 07/04/22 15:29 11:59 Wound Care Nurse 3 #9 Right Inferior Hallux -Ulcer Cleansing Rinsed/ Rinsed/ Irrigated with Irrigated with Saline Saline -Foul Odor after Cleansing No No -Negative Pressure Wound Therapy N/A -Primary Dressing Applied Promogran Mepilex Border, Cass Matter Promogran Cass Matter -Other Dressing appeture pad -Primary Dressing Covered/Secured with Dry Gauze & Roll Gauze, Secured with Tape -Mepilex Border 1 -Promogran Cass Matter 1 1 Treatment Response Procedure Tolerated Well Pain Scale: 0-10 Numeric Is Patient Pain Free? Yes Yes - Visit Discharge Discharge Condition Stable Stable Ambulatory Status Ambulatory Ambulatory,Cane Transportation Private Auto Private Auto Medication Reconcilliation completed & Yes provided to patient/care provider Clinical Summary of Care Provided Yes Facility Type Home Health Orders Sent Yes Assessment/Plan Assessment/Plan (1) Type 2 diabetes mellitus with diabetic polyneuropathy: CODE(S): E11.42 - Type 2 diabetes mellitus with diabetic polyneuropathy PLAN: Exam performed. Stable wound to right hallux noted. Secondary to neuropathy and hallux valgus deformity. Wound was excisionally debrided down to including level subcutaneous tissue using tissue nippers and 5 mm dermal curette. All nonviable tissue removed. Hemostasis obtained with light compression. Patient tolerated procedure well. No anesthesia due to neuropathy. Pre and post debridement measurement segment nursing notes. Patient will continue current dressing treatments. Arterial studies reviewed, ultrasound demonstrates adequate flow to right lower extremity. Discussed multiple methods of offloading the right hallux wound. This included complete nonweightbearing either by wheelchair or knee scooter. This included protected weightbearing with total contact cast, cam walking boot. At this time the patient's surgical shoe was modified to better offload the right foot. Patient is improving with regards to his squamous cell carcinoma is receiving his final radiation treatment next week. Patient will be required to be less ambulatory with regards to transferring from appointment to appointment which may assist the healing process. Patient will follow-up at his regularly scheduled appointment. (2) Non-pressure chronic ulcer of other part of right foot with fat layer exposed: CODE(S): L97.512 - Non-pressure chronic ulcer of other part of right foot with fat layer exposed
[2022-07-18 13:29] VITALS: BP 117/57; PULSE 83; RESP 16; TEMP 36.2
--- NOTE | 2022-07-18 15:23 | PN.PCM_ITS ---
History of Present Illness Date of Service: 07/18/22 Chief Complaint: right foot ulcer History of Wound: This 77-year-old male returns to the wound healing clinic for reoccurrence of a right medial foot ulcer. Wound care has been Moistened Cass covered with [place] SAP dressing. Patient diabetic neuropathic. 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 Patient offloading right foot with surgical shoe. Patient denies constitutional's or pains at this time. No other complaints. Progress of Wound: Right medial foot ulcer is larger He had his offloading shoe modified at his last visit where he saw Dr. Gandhi, he states that he notices more pressure than he previously had. It appears his foot slides forward in his [place] shoe and the area that is supposed to relieve the pressure is not in the correct place. Objective Data Objective Data Vital Signs: Vital Signs Temp Pulse Resp BP O2 Del Method 97.1 F L 83 16 117/57 L Room Air 07/18/22 13:29 07/18/22 13:29 07/18/22 13:29 07/18/22 13:29 07/18/22 13:29 Oxygen Delivery Method Room Air Charges/Coding Procedures Integumentary 111xxx-113xx: 20457 Mihaela subq tissue 20 sq cm/< Debridement Note Debridement Note Wound debrided: medial foot ulcer Laterality: Right Wound Grade/Stage: Stage II Type of Debridement: Excisional debridement Anesthesia Used: 5% Lidocaine Gel Depth: Down to and including healthy tissue and in the subcutaneous layer Percentage of wound debrided: 100 Instrument Used: 3mm curette Tissue Removed: Devitalized tissue and slough Severity: Fat Layer Exposed Amount of bleeding with debridement: Mild Bleeding Controlled with: Compression and gauze Patient tolerated procedure: Patient tolerated procedure well Post-Debridement Measurements and Additional Note: Post-Debridement Measurements/Treatment URBAN - Nurse 1 - General Ulcer Assessment Start: 06/26/22 11:28 Freq: Status: Active Protocol: HEMA Activity Type Activity Date Activity User E-sign Co-sign Detail Recorded Client Recorded Date Recorded By Document 06/26/22 11:28 AK [id number] 06/26/22 11:30 AK Document 07/04/22 11:12 DL [id number] 07/04/22 11:19 DL Document 07/18/22 13:29 MW [id number] 07/18/22 13:38 MW 06/26/22 07/04/22 07/18/22 11:28 11:12 13:29 - Today's Visit Information Type of service Follow-up Visit Follow-up Visit Follow-up Visit (Physician/MARKETING MANAGER (Physician/MARKETING MANAGER (Physician/MARKETING MANAGER ) ) ) Arrival Mode Ambulatory Ambulatory,Cane Cane Transfer Assistance None None Accompanied by daughter in law Patient Identification Verified (Name & No Yes Yes ) Patient Requires Transmission-Based No No No Precautions Safety Precautions NA NA Finger Stick Blood Sugar(mg/dl) (if 151 indicated): Blood Sugar Stated by Patient Vital Signs Temperature (97.8 F-99.1 F) 97.9 F 97.1 F L 97.1 F L Temperature Source Temporal Temporal Temporal Pulse Rate (60-100) 69 69 83 Pulse Location Monitor Monitor Monitor Respiratory Rate (12-18) 18 16 Respiratory rate source Observation Observation Oxygen Delivery Method Room Air Blood Pressure (90/60-120/80) 143/52 H 149/47 H 117/57 L Blood Pressure Mean (mm Hg) 82 81 77 Source Monitor Monitor Monitor Position Sitting Blood Pressure Location Left Arm History Since Last Visit- (Skip if this is Patient's initial visit) Have you changed medications since your No No No last visit? Any new allergies or adverse reactions No No No Had a fall/change in ADL's that may No No No increase risk of falls Signs or symptoms of abuse and/or No No No neglect since last visit Have you been in the hospital since your No No last visit? Has dressing in place as prescribed Yes Yes Yes Has compression in place as prescribed N/A N/A Yes Has offloadiing in place as prescribed N/A Yes N/A Experienced any changes in pain level or No No No management Left Footwear Regular Shoe Regular Shoe Right Footwear Regular Shoe Surgical Shoe with pressure relief insole Pain Scale: 0-10 Numeric Is Patient Pain Free? No Yes Yes - Nurse 1 - General Ulcer Measurement Start: 06/26/22 11:28 Freq: Status: Active Protocol: Activity Type Activity Date Activity User E-sign Co-sign Detail Recorded Client Recorded Date Recorded By Document 06/26/22 11:28 AK [id number] 06/26/22 11:30 AK Document 07/04/22 11:12 DL [id number] 07/04/22 11:19 DL Document 07/18/22 13:29 MW [id number] 07/18/22 13:38 MW 06/26/22 07/04/22 07/18/22 11:28 11:12 13:29 Wound Center Nurse 1 #9 Right Inferior Hallux -Combined with other wound No No -Current Size (cm) - Length 0.5 0.7 0.8 -Current Size (cm) - Width 0.8 0.8 0.8 -Current Size (cm) - Depth 0.2 0.5 0.4 -Total Square Cm 0.40 0.56 0.64 -Date of Last Picture (Recall this 06/26/22 07/18/22 field) -Photo Taken Yes No Yes -Epithelialization None Present -Tunneling No No -Undermining/Tunneling No No -Circular Undermining No No -Change in Wound Grade/Stage No -Exudate Amt Medium Small Small -Exudate Type Serosanguineous Serosanguineous Serosanguineous -Wound Margin Distinct, Thickened Distinct, Outline Outline Attached Attached -Granulation Amt Medium (34-66%) None Present (0 Small (1-33%) %) -Granulation Quality N/A [place] -Slough/Fibrin Yes Yes -Necrosis Amt Large (67-100%) Large (67-100%) Medium (34-66%) -Necrotic Tissue Type Adherent Slough Adherent Slough Adherent Slough -Structure Exposed N/A N/A N/A -Texture (Anna-wound Skin Appearance) No Abnormality, Callus,Scarring Assessed, Assessed Scarring -Moisture (Anna-wound Skin Appearance) No Abnormality, Dry/Scaly Assessed, Assessed Maceration -Color (Anna-wound Skin Appearance) No Abnormality, No Abnormality Assessed Assessed -Temperature (Anna-wound Skin No Abnormality No Abnormality No Abnormality Appearance) (Pt Warm) (Pt Warm) (Pt Warm) -Tenderness on Palpation (Anna-wound No Yes Skin Appearance) -Ulcer Cleansing Soap and Water Rinsed/ Rinsed/ Irrigated with Irrigated with Saline Saline -Foul Odor after Cleansing No No No -Anesthetic Used 5% Lidocaine 5% Lidocaine 5% Lidocaine Gel Gel Gel Lower Limb Edema Present No WC - Nurse 2 - General Ulcer CM Notes Start: 06/26/22 11:28 Freq: Status: Active Protocol: Activity Type Activity Date Activity User E-sign Co-sign Detail Recorded Client Recorded Date Recorded By Document 06/26/22 12:08 [id number] 06/26/22 12:17 Document 07/04/22 11:39 [id number] 07/04/22 11:44 Document 07/18/22 14:07 [id number] 07/18/22 14:10 06/26/22 07/04/22 07/18/22 12:08 11:39 14:07 Wound Center Nurse 2 #9 Right Inferior Hallux -Time 12:08 11:39 14:08 -Correct Patient Yes Yes Yes -Correct Side, Site, Position Yes Yes Yes -Correct Procedure Yes Yes Yes -Procedure Performed Yes Yes Yes -Type of Procedure Debridement Debridement Debridement -Clinical Debridement Subcutaneous Subcutaneous Subcutaneous -Tissue Removed Subcutaneous Subcutaneous Subcutaneous -Post Debridement (cm) - Length 0.8 0.8 1.0 -Post Debridement (cm) - Width 1 1 1.2 -Post Debridement (cm) - Depth 0.2 0.4 0.3 -Total Square (Post) (cm) 0.8 0.8 1.20 -Area of Debridement (cm) - Length 0.8 0.8 1.0 -Area of Debridement (cm) - Width 1.0 1.0 1.2 -Total Square (Area) (cm) 0.80 0.80 1.20 -Tunneling No No No -Undermining/Tunneling No No No -Circular Undermining No No No -Wound/Ulcer Outcome Not Healed Not Healed Not Healed -Ulcer Cleansing Rinsed/ Rinsed/ Rinsed/ Irrigated with Irrigated with Irrigated with Saline Saline Saline -Foul Odor after Cleansing No No No -Bioengineered Tissue No No No -Bleeding Controlled with Pressure Pressure Pressure -Treatment Response Procedure Procedure Procedure Tolerated Well Tolerated Well Tolerated Well -Offloading Yes Yes Yes -Type of Offloading Surgical Shoe Surgical Shoe Surgical Shoe -Debridement - Subq, 1st 20sq cm Yes Yes Yes Pain Scale: 0-10 Numeric Is Patient Pain Free? Yes Yes Yes WC - Nurse 3 - General Ulcer D/C NN Start: 06/26/22 11:28 Freq: Status: Active Protocol: Activity Type Activity Date Activity User E-sign Co-sign Detail Recorded Client Recorded Date Recorded By Document 06/26/22 15:29 AK [id number] 06/26/22 15:30 AK Document 07/04/22 11:59 DL [id number] 07/04/22 12:01 DL Document 07/18/22 14:22 DL [id number] 07/18/22 14:24 DL 06/26/22 07/04/22 07/18/22 15:29 11:59 14:22 Wound Care Nurse 3 #9 Right Inferior Hallux -Ulcer Cleansing Rinsed/ Rinsed/ Rinsed/ Irrigated with Irrigated with Irrigated with Saline Saline Saline -Foul Odor after Cleansing No No No -Negative Pressure Wound Therapy N/A -Primary Dressing Applied Promogran Mepilex Border, Mepilex Border, Cass Matter Promogran [place] Cass Matter -Other Dressing appeture pad -Primary Dressing Covered/Secured with Dry Gauze & Roll Gauze, Secured with Tape -Mepilex Border 1 1 -Promogran Cass Matter 1 1 -[place] 1 Treatment Response Procedure Procedure Tolerated Well Tolerated Well Pain Scale: 0-10 Numeric Is Patient Pain Free? Yes Yes Yes WC - Visit Discharge Discharge Condition Stable Stable Stable Ambulatory Status Ambulatory Ambulatory,Cane Ambulatory,Cane Transportation Private Auto Private Auto Private Auto Medication Reconcilliation completed & Yes provided to patient/care provider Clinical Summary of Care Provided Yes Facility Type Home Health Orders Sent Yes Assessment/Plan Assessment/Plan (1) Type 2 diabetes mellitus with diabetic polyneuropathy: CODE(S): E11.42 - Type 2 diabetes mellitus with diabetic polyneuropathy PLAN: Patient was evaluated at the wound healing center today.? Wound care - [place] as the primary dressing covered with [place] SAP (secondary dressing) daily after washing foot with soap and water. Compression - Single tubigrip Off-loading - Suman shoe needs adjusted, removed the area that was causing pressure, will have him see one of the podiatrists to adjust his shoe properly.? He completed his radiation last week, therefore he should be doing less walking to appointments. Vascular:? 12/19/21 - Right EULALIA - 1.15, Left EULALIA 1.06.? Right digital 0.74, Left digital 0.71, bilateral triphasic. Venous studies showed bilateral no DVT, Bilateral calf with primary veins with reflux, bilateral SPJ reflux. Wound culture obtained today, 07/18/22, depending on the results of the culture, it may necessitate the need for treatment with antibiotics. Wound culture obtained on 05/18/22 which was positive for Staphylococcus pseudintermediu, Staphylococcus saprophyticus and Anaerobic cocci.? Continue Augmentin. Encouraged high protein diet that is low in carbohydrates and sodium. Follow up one week. Call or come in sooner if develop any questions or concerns. (2) Non-pressure chronic ulcer of other part of right foot with fat layer exposed: CODE(S): L97.512 - Non-pressure chronic ulcer of other part of right foot with fat layer exposed
== END 2022-07-19 23:59 | disposition home or self-care (01) ==
LOC: WC 13:30
PROVIDERS: PCP Family Medicine; Visit Provider Nurse Practitioner Family
DX: E11.621 Type 2 diabetes mellitus with foot ulcer (principal); E11.51 Type 2 diabetes mellitus with diabetic peripheral angiopathy without gangrene; L97.512 Non-pressure chronic ulcer of other part of right foot with fat layer exposed; E11.59 Type 2 diabetes mellitus with other circulatory complications; E11.42 Type 2 diabetes mellitus with diabetic polyneuropathy; I87.2 Venous insufficiency (chronic) (peripheral); R60.0 Localized edema
CPT/HCPCS: 11042; 87070; 87075; 87077; 87186; 87205

== ENCOUNTER 2022-08-15 14:00 | Outpatient (RCR) | payer MEDICARE, OTHER, SELFPAY ==
[2022-07-20 00:25] VITALS: BP 117/57; PULSE 83; RESP 16; TEMP 36.2
[2022-08-01 13:13] VITALS: BP 139/51; PULSE 83; TEMP 36.4
--- NOTE | 2022-08-01 16:01 | PN.PCM_ITS ---
History of Present Illness Date of Service: 08/01/22 Chief Complaint: right foot ulcer History of Wound: This 77-year-old male returns to the wound healing clinic for reoccurrence of a right medial foot ulcer. Wound care has been Moistened Cass covered with [place] SAP dressing. Patient diabetic neuropathic. 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 Patient offloading right foot with surgical shoe. Wound culture from 07/18/22 positive for Staphylococcus pseudintermediu, he is being treated with Augmentin. Patient denies constitutional's or pains at this time. No other complaints. Progress of Wound: Right medial foot ulcer is stable. He had his offloading shoe re-modified at the foot and ankle clinic and states he is no longer having pressure on that area. Objective Data Objective Data Vital Signs: Vital Signs Temp Pulse Resp BP 97.6 F L 83 16 139/51 H 08/01/22 13:13 08/01/22 13:13 07/20/22 00:25 08/01/22 13:13 Charges/Coding Procedures Integumentary 111xxx-113xx: 64505 Mihaela subq tissue 20 sq cm/< Debridement Note Debridement Note Wound debrided: medial foot ulcer Laterality: Right Wound Grade/Stage: Stage II Type of Debridement: Excisional debridement Anesthesia Used: 5% Lidocaine Gel Depth: Down to and including healthy tissue and in the subcutaneous layer Percentage of wound debrided: 100 Instrument Used: 5mm curette Tissue Removed: Devitalized tissue and slough Severity: Fat Layer Exposed Amount of bleeding with debridement: Mild Bleeding Controlled with: Compression and gauze Patient tolerated procedure: Patient tolerated procedure well Post-Debridement Measurements and Additional Note: Post-Debridement Measurements/Treatment - Nurse 1 - General Ulcer Assessment Start: 08/01/22 13:13 Freq: Status: Active Protocol: URBAN.LOWMICHOACANOT Activity Type Activity Date Activity User E-sign Co-sign Detail Recorded Client Recorded Date Recorded By Document 08/01/22 13:13 AVEL [id number] 08/01/22 13:15 AVEL 08/01/22 13:13 - Today's Visit Information Type of service Follow-up Visit (Physician/SIGNAL 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 Any new allergies or adverse reactions No Had a fall/change in ADL's that may No increase risk of falls Signs or symptoms of abuse and/or No neglect since last visit Have you been in the hospital since your No last visit? Has dressing in place as prescribed No Has compression in place as prescribed Yes Has offloadiing in place as prescribed Yes Experienced any changes in pain level or No management Left Footwear Regular Shoe Right Footwear Surgical Shoe with pressure relief insole Pain Scale: 0-10 Numeric Is Patient Pain Free? Yes WC - Nurse 1 - General Ulcer Measurement Start: 08/01/22 13:13 Freq: Status: Active Protocol: Activity Type Activity Date Activity User E-sign Co-sign Detail Recorded Client Recorded Date Recorded By Document 08/01/22 13:13 AVEL [id number] 08/01/22 13:15 AVEL 08/01/22 13:13 Wound Center Nurse 1 #9 Right Inferior Hallux -Combined with other wound No -Current Size (cm) - Length 0.5 -Current Size (cm) - Width 0.8 -Current Size (cm) - Depth 0.2 -Total Square Cm 0.40 -Photo Taken No -Epithelialization None Present -Tunneling No -Undermining/Tunneling No -Circular Undermining No -Change in Wound Grade/Stage No -Exudate Amt Medium -Exudate Type Serosanguineous -Wound Margin Distinct, Outline Attached -Granulation Amt Medium (34-66%) -Granulation Quality [place] -Slough/Fibrin Yes -Necrosis Amt Medium (34-66%) -Necrotic Tissue Type Adherent Slough -Structure Exposed N/A -Texture (Anna-wound Skin Appearance) No Abnormality, Assessed -Moisture (Anna-wound Skin Appearance) No Abnormality, Assessed -Color (Anna-wound Skin Appearance) No Abnormality, Assessed -Temperature (Anna-wound Skin No Abnormality Appearance) (Pt Warm) -Tenderness on Palpation (Anna-wound No Skin Appearance) -Ulcer Cleansing Rinsed/ Irrigated with Saline -Foul Odor after Cleansing No -Anesthetic Used 5% Lidocaine Gel - Nurse 2 - General Ulcer CM Notes Start: 08/01/22 13:13 Freq: Status: Active Protocol: Activity Type Activity Date Activity User E-sign Co-sign Detail Recorded Client Recorded Date Recorded By Document 08/01/22 13:30 [id number] 08/01/22 13:37 08/01/22 13:30 Wound Center Nurse 2 -Time 13:32 -Correct Patient Yes -Correct Side, Site, Position Yes -Correct Procedure Yes -Procedure Performed Yes -Type of Procedure Debridement -Clinical Debridement Subcutaneous -Tissue Removed Subcutaneous -Post Debridement (cm) - Length 1.0 -Post Debridement (cm) - Width 1.2 -Post Debridement (cm) - Depth 0.3 -Total Square (Post) (cm) 1.20 -Area of Debridement (cm) - Length 1.0 -Area of Debridement (cm) - Width 1.2 -Total Square (Area) (cm) 1.20 -Tunneling No -Undermining/Tunneling No -Circular Undermining No -Wound/Ulcer Outcome Not Healed -Ulcer Cleansing Rinsed/ Irrigated with Saline -Foul Odor after Cleansing No -Bioengineered Tissue No -Bleeding Controlled with Pressure -Treatment Response Procedure Tolerated Well -Offloading Yes -Type of Offloading Surgical Shoe -Debridement - Subq, 1st 20sq cm Yes Pain Scale: 0-10 Numeric Is Patient Pain Free? Yes - Nurse 3 - General Ulcer D/C NN Start: 08/01/22 13:13 Freq: Status: Active Protocol: Activity Type Activity Date Activity User E-sign Co-sign Detail Recorded Client Recorded Date Recorded By Document 08/01/22 13:44 [facility] [id number] 08/01/22 13:45 [facility] 08/01/22 13:44 Wound Care Nurse 3 #9 Right Inferior Hallux -Ulcer Cleansing Rinsed/ Irrigated with Saline -Foul Odor after Cleansing No -Primary Dressing Applied Mepilex Border, Silvercel -Mepilex Border 1 -Silvercel 1 Treatment Response Procedure Tolerated Well Pain Scale: 0-10 Numeric Is Patient Pain Free? Yes WC - Visit Discharge Discharge Condition Stable Ambulatory Status Ambulatory,Cane Transportation Private Auto Accompanied by WEI Assessment/Plan Assessment/Plan (1) Type 2 diabetes mellitus with diabetic polyneuropathy: CODE(S): E11.42 - Type 2 diabetes mellitus with diabetic polyneuropathy (2) Non-pressure chronic ulcer of other part of right foot with fat layer exposed: CODE(S): L97.512 - Non-pressure chronic ulcer of other part of right foot with fat layer exposed PLAN: Plan Patient was evaluated at the wound healing center today.? Wound care - Silvercel as the primary dressing covered with [place] SAP (secondary dressing) daily after washing foot with soap and water. Compression - Single tubigrip Off-loading - Suman shoe has been re-adjusted at the foot and ankle clinic. He states it feels better with no pressure on his ulcer. He completed his radiation, therefore he should be doing less walking to appointments. Vascular:? 12/19/21 - Right EULALIA - 1.15, Left EULALIA 1.06.? Right digital 0.74, Left digital 0.71, bilateral triphasic. Venous studies showed bilateral no DVT, Bilateral calf with primary veins with reflux, bilateral SPJ reflux. Wound culture obtained on 07/18/22 positive for Staphylococcus pseudintermediu, he is being treated with Augmentin. Wound culture obtained on 05/18/22 which was positive for Staphylococcus pseudintermediu, Staphylococcus saprophyticus and Anaerobic cocci.? Continue Augmentin. Encouraged high protein diet that is low in carbohydrates and sodium. Follow up two weeks. Call or come in sooner if develop any questions or concerns.
[2022-08-15 13:56] VITALS: BP 139/43; PULSE 73; RESP 16; TEMP 36.2
--- NOTE | 2022-08-15 16:14 | PN.PCM_ITS ---
History of Present Illness Date of Service: 08/15/22 Chief Complaint: right foot ulcer History of Wound: This 77-year-old male returns to the wound healing clinic for reoccurrence of a right medial foot ulcer. Wound care has been Moistened Cass covered with [place] SAP dressing. Patient diabetic neuropathic. 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 Patient offloading right foot with surgical shoe. Wound culture from 07/18/22 positive for Staphylococcus pseudintermediu, he is being treated with Augmentin. Patient denies constitutional's or pains at this time. No other complaints. Progress of Wound: Right medial foot ulcer is stable, it is not showing much improvement. The wound bed is beefy pink. He had his offloading shoe re-modified at the foot and ankle clinic and states he is no longer having pressure on that area. He has completed radiation therapy and no longer is having to have to walk far distances. Objective Data Objective Data Vital Signs: Vital Signs Temp Pulse Resp BP O2 Del Method 97.1 F L 73 16 139/43 H Room Air 08/15/22 13:56 08/15/22 13:56 08/15/22 13:56 08/15/22 13:56 08/15/22 13:56 Oxygen Delivery Method Room Air Charges/Coding Procedures Integumentary 111xxx-113xx: 20946 Mihaela subq tissue 20 sq cm/< Debridement Note Debridement Note Wound debrided: medial foot ulcer Laterality: Right Wound Grade/Stage: Stage II Type of Debridement: Excisional debridement Anesthesia Used: 5% Lidocaine Gel Depth: Down to and including healthy tissue and in the subcutaneous layer Percentage of wound debrided: 100 Instrument Used: 3mm curette and #15 blade (pickups) Tissue Removed: Devitalized tissue and slough Severity: Fat Layer Exposed Amount of bleeding with debridement: Mild Bleeding Controlled with: Compression and gauze and Silver Nitrate (to the edge at 3 o'clock) Patient tolerated procedure: Patient tolerated procedure well Post-Debridement Measurements and Additional Note: Post-Debridement Measurements/Treatment URBAN - Nurse 1 - General Ulcer Assessment Start: 08/01/22 13:13 Freq: Status: Active Protocol: HEMA Activity Type Activity Date Activity User E-sign Co-sign Detail Recorded Client Recorded Date Recorded By Document 08/01/22 13:13 AVEL [id number] 08/01/22 13:15 [place] Document 08/15/22 13:56 [facility] [id number] 08/15/22 14:04 [facility] 08/01/22 08/15/22 13:13 13:56 - Today's Visit Information Type of service Follow-up Visit Follow-up Visit (Physician/BOG WORKER (Physician/BOG WORKER ) ) Arrival Mode Ambulatory Ambulatory Transfer Assistance None Accompanied by DAUGHTER Patient Identification Verified (Name & Yes Yes ) Patient Requires Transmission-Based No No Precautions Vital Signs Temperature (97.8 F-99.1 F) 97.6 F L 97.1 F L Temperature Source Temporal Temporal Pulse Rate (60-100) 83 73 Pulse Location Monitor Monitor Respiratory Rate (12-18) 16 Respiratory rate source Observation Oxygen Delivery Method Room Air Blood Pressure (90/60-120/80) 139/51 H 139/43 H Blood Pressure Mean (mm Hg) 80 75 Source Monitor Monitor Position Sitting Blood Pressure Location Left Arm History Since Last Visit- (Skip if this is Patient's initial visit) Have you changed medications since your No No last visit? Any new allergies or adverse reactions No No Had a fall/change in ADL's that may No No increase risk of falls Signs or symptoms of abuse and/or No No neglect since last visit Have you been in the hospital since your No No last visit? Has dressing in place as prescribed No Yes Has compression in place as prescribed Yes N/A Has offloadiing in place as prescribed Yes N/A Experienced any changes in pain level or No No management Left Footwear Regular Shoe Diabetic Shoe Right Footwear Surgical Shoe Surgical Shoe with pressure with pressure relief insole relief insole Pain Scale: 0-10 Numeric Is Patient Pain Free? Yes Yes - Nurse 1 - General Ulcer Measurement Start: 08/01/22 13:13 Freq: Status: Active Protocol: Activity Type Activity Date Activity User E-sign Co-sign Detail Recorded Client Recorded Date Recorded By Document 08/01/22 13:13 [place] [id number] 08/01/22 13:15 [place] Document 08/15/22 13:56 [facility] [id number] 08/15/22 14:04 [facility] 08/01/22 08/15/22 13:13 13:56 Wound Center Nurse 1 #9 Right Inferior Hallux -Combined with other wound No No -Current Size (cm) - Length 0.5 0.9 -Current Size (cm) - Width 0.8 0.5 -Current Size (cm) - Depth 0.2 0.3 -Total Square Cm 0.40 0.45 -Date of Last Picture (Recall this 08/15/22 field) -Photo Taken No Yes -Epithelialization None Present None Present -Tunneling No No -Undermining/Tunneling No No -Circular Undermining No No -Change in Wound Grade/Stage No -Exudate Amt Medium Medium -Exudate Type Serosanguineous Serosanguineous -Wound Margin Distinct, Distinct, Outline Outline Attached Attached -Granulation Amt Medium (34-66%) Large (67-100%) -Granulation Quality [place] -Slough/Fibrin Yes Yes -Necrosis Amt Medium (34-66%) Small (1-33%) -Necrotic Tissue Type Adherent Slough Adherent Slough -Structure Exposed N/A -Texture (Anna-wound Skin Appearance) No Abnormality, Assessed Assessed -Moisture (Anna-wound Skin Appearance) No Abnormality, Assessed, Assessed Maceration -Color (Anna-wound Skin Appearance) No Abnormality, Assessed, Assessed Erythema,Palor -Temperature (Anna-wound Skin No Abnormality No Abnormality Appearance) (Pt Warm) (Pt Warm) -Tenderness on Palpation (Anna-wound No No Skin Appearance) -Ulcer Cleansing Rinsed/ Rinsed/ Irrigated with Irrigated with Saline Saline -Foul Odor after Cleansing No No -Anesthetic Used 5% Lidocaine 5% Lidocaine Gel Gel WC - Nurse 2 - General Ulcer CM Notes Start: 08/01/22 13:13 Freq: Status: Active Protocol: Activity Type Activity Date Activity User E-sign Co-sign Detail Recorded Client Recorded Date Recorded By Document 08/01/22 13:30 [id number] 08/01/22 13:37 Document 08/15/22 14:38 [id number] 08/15/22 14:40 08/01/22 08/15/22 13:30 14:38 Wound Center Nurse 2 #9 Right Inferior Hallux -Time 13:32 14:39 -Correct Patient Yes Yes -Correct Side, Site, Position Yes Yes -Correct Procedure Yes Yes -Procedure Performed Yes Yes -Type of Procedure Debridement Debridement -Clinical Debridement Subcutaneous Subcutaneous -Tissue Removed Subcutaneous Subcutaneous -Post Debridement (cm) - Length 1.0 1.0 -Post Debridement (cm) - Width 1.2 1.2 -Post Debridement (cm) - Depth 0.3 0.3 -Total Square (Post) (cm) 1.20 1.20 -Area of Debridement (cm) - Length 1.0 1.0 -Area of Debridement (cm) - Width 1.2 1.2 -Total Square (Area) (cm) 1.20 1.20 -Tunneling No No -Undermining/Tunneling No -Circular Undermining No No -Wound/Ulcer Outcome Not Healed Not Healed -Ulcer Cleansing Rinsed/ Rinsed/ Irrigated with Irrigated with Saline Saline -Foul Odor after Cleansing No No -Bioengineered Tissue No No -Bleeding Controlled with Pressure Pressure -Treatment Response Procedure Procedure Tolerated Well Tolerated Well -Offloading Yes Yes -Type of Offloading Surgical Shoe Surgical Shoe -Debridement - Subq, 1st 20sq cm Yes Yes Pain Scale: 0-10 Numeric Is Patient Pain Free? Yes Yes - Nurse 3 - General Ulcer D/C NN Start: 08/01/22 13:13 Freq: Status: Active Protocol: Activity Type Activity Date Activity User E-sign Co-sign Detail Recorded Client Recorded Date Recorded By Document 08/01/22 13:44 [facility] [id number] 08/01/22 13:45 [facility] Document 08/15/22 15:01 [id number] 08/15/22 15:03 DL 08/01/22 08/15/22 13:44 15:01 Wound Care Nurse 3 #9 Right Inferior Hallux -Ulcer Cleansing Rinsed/ Rinsed/ Irrigated with Irrigated with Saline Saline -Foul Odor after Cleansing No No -Primary Dressing Applied Mepilex Border, Mepilex Border, Silvercel Silvercel -Mepilex Border 1 1 -Silvercel 1 1 Treatment Response Procedure Procedure Tolerated Well Tolerated Well Pain Scale: 0-10 Numeric Is Patient Pain Free? Yes Yes - Visit Discharge Discharge Condition Stable Stable Ambulatory Status Ambulatory,Cane Ambulatory,Cane Transportation Private Auto Private Auto Accompanied by WEI Assessment/Plan Assessment/Plan (1) Type 2 diabetes mellitus with diabetic polyneuropathy: CODE(S): E11.42 - Type 2 diabetes mellitus with diabetic polyneuropathy (2) Non-pressure chronic ulcer of other part of right foot with fat layer exposed: CODE(S): L97.512 - Non-pressure chronic ulcer of other part of right foot with fat layer exposed PLAN: Plan Patient was evaluated at the wound healing center today.? There is a platau in wound healing, he would benefit from an advanced wound healing product such as Epifix to help expedite wound healing. Wound care - Silvercel as the primary dressing covered with [place] SAP (secondary dressing) daily after washing foot with soap and water. Compression - Single tubigrip Off-loading - Suman shoe has been re-adjusted at the foot and ankle clinic. He states it feels better with no pressure on his ulcer. He completed his radiation, therefore he should be doing less walking to appointments. Vascular:? 12/19/21 - Right EULALIA - 1.15, Left EULALIA 1.06.? Right digital 0.74, Left digital 0.71, bilateral triphasic. Venous studies showed bilateral no DVT, Bilateral calf with primary veins with reflux, bilateral SPJ reflux. Wound culture obtained on 07/18/22 positive for Staphylococcus pseudintermediu, he completed Augmentin. Wound culture obtained on 05/18/22 which was positive for Staphylococcus pseudintermediu, Staphylococcus saprophyticus and Anaerobic cocci.? Continue Augmentin. Encouraged high protein diet that is low in carbohydrates and sodium. Follow up two weeks. Call or come in sooner if develop any questions or concerns.
== END 2022-08-19 23:59 | disposition home or self-care (01) ==
LOC: WC 14:00
PROVIDERS: PCP Family Medicine; Visit Provider Nurse Practitioner Family
DX: E11.621 Type 2 diabetes mellitus with foot ulcer (principal); L97.512 Non-pressure chronic ulcer of other part of right foot with fat layer exposed; E11.42 Type 2 diabetes mellitus with diabetic polyneuropathy
CPT/HCPCS: 11042

== ENCOUNTER 2022-09-18 09:45 | Outpatient (RCR) | payer MEDICARE, OTHER, SELFPAY ==
[2022-08-20 00:21] VITALS: BP 139/43; PULSE 73; RESP 16; TEMP 36.2
[2022-08-29 13:17] VITALS: BP 125/95; PULSE 77; RESP 16; TEMP 35.8
--- NOTE | 2022-08-29 14:29 | PCM.WC.PN ---
History of Present Illness Date of Service: 08/29/22 Chief Complaint: right foot ulcer History of Wound: This 77-year-old male returns to the wound healing clinic for reoccurrence of a right medial foot ulcer. Wound care has been Moistened Cass covered with Neligh SAP dressing. Patient diabetic neuropathic. 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 Patient offloading right foot with surgical shoe. Wound culture from 07/18/22 positive for Staphylococcus pseudintermediu, he is being treated with Augmentin. Patient denies constitutional's or pains at this time. No other complaints. Progress of Wound: Right medial foot ulcer is stable, it is not showing much improvement. The wound bed is beefy pink. He had his offloading shoe re-modified at the foot and ankle clinic and states he is no longer having pressure on that area. Objective Data Objective Data Vital Signs: Vital Signs Temp Pulse Resp BP O2 Del Method 96.5 F L 77 16 125/95 H Room Air 08/29/22 13:17 08/29/22 13:17 08/29/22 13:17 08/29/22 13:17 08/29/22 13:17 Oxygen Delivery Method Room Air Charges/Coding Procedures Integumentary 111xxx-113xx: 96232 Mihaela subq tissue 20 sq cm/< Debridement Note Debridement Note Wound debrided: medial foot ulcer Laterality: Right Wound Grade/Stage: Stage II Type of Debridement: Excisional debridement Anesthesia Used: 5% Lidocaine Gel Depth: Down to and including healthy tissue and in the subcutaneous layer Percentage of wound debrided: 100 Instrument Used: #15 blade (pickups) Tissue Removed: Devitalized tissue and slough Severity: Fat Layer Exposed Amount of bleeding with debridement: Mild Bleeding Controlled with: Compression and gauze and Silver Nitrate (to the edge at 3 o'clock) Patient tolerated procedure: Patient tolerated procedure well Post-Debridement Measurements and Additional Note: Post-Debridement Measurements/Treatment - Nurse 1 - General Ulcer Assessment Start: 08/29/22 13:15 Freq: Status: Active Protocol: BAHMANEXTyler Activity Type Activity Date Activity User E-sign Co-sign Detail Recorded Client Recorded Date Recorded By Document 08/29/22 13:17 [facility] [id number] 08/29/22 13:22 [facility] 08/29/22 13:17 - Today's Visit Information Type of service Follow-up Visit (Physician/DENTAL TECHNICIAN 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 ) Arrival Mode Ambulatory,Cane Transfer Assistance None Accompanied by WEI Patient Identification Verified (Name & Yes ) Patient Requires Transmission-Based No Precautions Vital Signs Temperature (97.8 F-99.1 F) 96.5 F L Temperature Source Temporal Pulse Rate (60-100) 77 Pulse Location Monitor Respiratory Rate (12-18) 16 Respiratory rate source Observation Oxygen Delivery Method Room Air Blood Pressure (90/60-120/80) 125/95 H Blood Pressure Mean (mm Hg) 105 Source Monitor Position Sitting Blood Pressure Location Left Arm History Since Last Visit- (Skip if this is Patient's initial visit) Have you changed medications since your No last visit? Any new allergies or adverse reactions No Had a fall/change in ADL's that may No increase risk of falls Signs or symptoms of abuse and/or No neglect since last visit Have you been in the hospital since your No last visit? Has dressing in place as prescribed Yes Has compression in place as prescribed N/A Has offloadiing in place as prescribed Yes Experienced any changes in pain level or No management Left Footwear Surgical Shoe with pressure relief insole Right Footwear Diabetic Shoe Pain Scale: 0-10 Numeric Is Patient Pain Free? Yes - Nurse 1 - General Ulcer Measurement Start: 08/29/22 13:15 Freq: Status: Active Protocol: Activity Type Activity Date Activity User E-sign Co-sign Detail Recorded Client Recorded Date Recorded By Document 08/29/22 13:17 [facility] [id number] 08/29/22 13:22 [facility] 08/29/22 13:17 Wound Center Nurse 1 #9 Right Inferior Hallux -Combined with other wound No -Current Size (cm) - Length 0.5 -Current Size (cm) - Width 0.8 -Current Size (cm) - Depth 0.3 -Total Square Cm 0.40 -Date of Last Picture (Recall this 08/29/22 field) -Photo Taken Yes -Epithelialization None Present -Tunneling No -Undermining/Tunneling No -Circular Undermining No -Exudate Amt Medium -Exudate Type Serosanguineous -Wound Margin Distinct, Outline Attached -Granulation Amt Large (67-100%) -Granulation Quality Red -Slough/Fibrin Yes -Necrosis Amt Small (1-33%) -Necrotic Tissue Type Adherent Slough -Texture (Anna-wound Skin Appearance) Assessed, Scarring -Moisture (Anna-wound Skin Appearance) Assessed, Maceration -Color (Anna-wound Skin Appearance) Assessed, Erythema -Temperature (Anna-wound Skin No Abnormality Appearance) (Pt Warm) -Tenderness on Palpation (Anna-wound No Skin Appearance) -Ulcer Cleansing Rinsed/ Irrigated with Saline -Foul Odor after Cleansing No -Anesthetic Used 5% Lidocaine Gel WC - Nurse 2 - General Ulcer CM Notes Start: 08/29/22 13:15 Freq: Status: Active Protocol: Activity Type Activity Date Activity User E-sign Co-sign Detail Recorded Client Recorded Date Recorded By Document 08/29/22 13:35 DORA [id number] 08/29/22 13:40 JF 08/29/22 13:35 Wound Center Nurse 2 -Time 13:35 -Correct Patient Yes -Correct Side, Site, Position Yes -Correct Procedure Yes -Procedure Performed Yes -Type of Procedure Debridement -Clinical Debridement Subcutaneous -Tissue Removed Subcutaneous -Post Debridement (cm) - Length 1.0 -Post Debridement (cm) - Width 1.1 -Post Debridement (cm) - Depth 0.2 -Total Square (Post) (cm) 1.10 -Area of Debridement (cm) - Length 1.0 -Area of Debridement (cm) - Width 1.1 -Total Square (Area) (cm) 1.10 -Tunneling No -Undermining/Tunneling No -Circular Undermining No -Wound/Ulcer Outcome Not Healed -Ulcer Cleansing Rinsed/ Irrigated with Saline -Foul Odor after Cleansing No -Bioengineered Tissue No -Bleeding Controlled with Pressure -Treatment Response Procedure Tolerated Well -Offloading Yes -Type of Offloading Surgical Shoe -Debridement - Subq, 1st 20sq cm Yes Pain Scale: 0-10 Numeric Is Patient Pain Free? Yes WC - Nurse 3 - General Ulcer D/C NN Start: 08/29/22 13:15 Freq: Status: Active Protocol: Activity Type Activity Date Activity User E-sign Co-sign Detail Recorded Client Recorded Date Recorded By Document 08/29/22 13:47 DL [id number] 08/29/22 13:47 DL 08/29/22 13:47 Wound Care Nurse 3 #9 Right Inferior Hallux -Ulcer Cleansing Rinsed/ Irrigated with Saline -Foul Odor after Cleansing No -Primary Dressing Applied Mepilex Border, Silvercel -Mepilex Border 1 -Silvercel 1 Treatment Response Procedure Tolerated Well Pain Scale: 0-10 Numeric Is Patient Pain Free? Yes WC - Visit Discharge Discharge Condition Stable Ambulatory Status Ambulatory Transportation Private Auto Accompanied by daughter Assessment/Plan Assessment/Plan (1) Type 2 diabetes mellitus with diabetic polyneuropathy: CODE(S): E11.42 - Type 2 diabetes mellitus with diabetic polyneuropathy (2) Non-pressure chronic ulcer of other part of right foot with fat layer exposed: CODE(S): L97.512 - Non-pressure chronic ulcer of other part of right foot with fat layer exposed PLAN: Plan Patient was evaluated at the wound healing center today.? There is a platau in wound healing, he would benefit from an advanced wound healing product such as Epifix to help expedite wound healing. Will apply to his insurance for approval to start Epifix. Wound care - Silvercel as the primary dressing covered with Neligh SAP (secondary dressing) daily after washing foot with soap and water. Compression - Single tubigrip Off-loading - Suman shoe has been re-adjusted at the foot and ankle clinic. He states it feels better with no pressure on his ulcer. Stressed the importance of off loading and not putting pressure on this portion of his foot. Vascular:? 12/19/21 - Right EULALIA - 1.15, Left EULALIA 1.06.? Right digital 0.74, Left digital 0.71, bilateral triphasic. Venous studies showed bilateral no DVT, Bilateral calf with primary veins with reflux, bilateral SPJ reflux. Wound culture obtained on 07/18/22 positive for Staphylococcus pseudintermediu, he completed Augmentin. Wound culture obtained on 05/18/22 which was positive for Staphylococcus pseudintermediu, Staphylococcus saprophyticus and Anaerobic cocci.? Continue Augmentin. Encouraged high protein diet that is low in carbohydrates and sodium. Follow up two weeks. Call or come in sooner if develop any questions or concerns.
[2022-09-18 09:49] VITALS: BP 138/44; PULSE 66; RESP 18; TEMP 36.3
--- NOTE | 2022-09-18 11:57 | PCM.WC.PN ---
History of Present Illness Date of Service: 09/18/22 Chief Complaint: right foot ulcer History of Wound: This 77-year-old male returns to the wound healing clinic for reoccurrence of a right medial foot ulcer. Wound care has been Moistened Cass covered with [place] SAP dressing. Patient diabetic neuropathic. 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 Patient offloading right foot with surgical shoe. Wound culture from 07/18/22 positive for Staphylococcus pseudintermediu, he is being treated with Augmentin. Patient denies constitutional's or pains at this time. No other complaints. Progress of Wound: Right medial foot ulcer is stable. The wound bed is beefy pink. He has been approved for Epifix advanced wound care product. He has bee wearing a post surgical shoe. Objective Data Objective Data Vital Signs: Vital Signs Temp Pulse Resp BP O2 Del Method 97.3 F L 66 18 138/44 H Room Air 09/18/22 09:49 09/18/22 09:49 09/18/22 09:49 09/18/22 09:49 08/29/22 13:17 Oxygen Delivery Method Room Air Charges/Coding Procedures Integumentary 150xxx-152xx: 37052 Skin sub graft trnk/arm/leg Debridement Note Debridement Note Wound debrided: medial foot ulcer Laterality: Right Type of Debridement: Excisional debridement Anesthesia Used: 5% Lidocaine Gel Depth: Down to and including healthy tissue and in the subcutaneous layer Percentage of wound debrided: 100 Instrument Used: 5mm curette Tissue Removed: Devitalized tissue and slough Severity: Fat Layer Exposed Amount of bleeding with debridement: Mild Bleeding Controlled with: Compression and gauze and Silver Nitrate (to the edge at 3 o'clock) Patient tolerated procedure: Patient tolerated procedure well Post-Debridement Measurements and Additional Note: Post-Debridement Measurements/Treatment URBAN - Nurse 1 - General Ulcer Assessment Start: 08/29/22 13:15 Freq: Status: Active Protocol: HEMA Activity Type Activity Date Activity User E-sign Co-sign Detail Recorded Client Recorded Date Recorded By Document 08/29/22 13:17 BMF [id number] 08/29/22 13:22 BMF Document 09/18/22 09:49 DL [id number] 09/18/22 09:58 DL 08/29/22 09/18/22 13:17 09:49 - Today's Visit Information Type of service Follow-up Visit Follow-up Visit (Physician/LOWER IN SUPERVISOR (Physician/LOWER IN SUPERVISOR ) ) Arrival Mode Ambulatory,Cane Ambulatory Transfer Assistance None None Accompanied by WEI Patient Identification Verified (Name & Yes Yes ) Patient Requires Transmission-Based No No Precautions Finger Stick Blood Sugar(mg/dl) (if 151 indicated): Blood Sugar Stated by Patient Vital Signs Temperature (97.8 F-99.1 F) 96.5 F L 97.3 F L Temperature Source Temporal Temporal Pulse Rate (60-100) 77 66 Pulse Location Monitor Monitor Respiratory Rate (12-18) 16 18 Respiratory rate source Observation Observation Oxygen Delivery Method Room Air Blood Pressure (90/60-120/80) 125/95 H 138/44 H Blood Pressure Mean (mm Hg) 105 75 Source Monitor Monitor Position Sitting Blood Pressure Location Left Arm History Since Last Visit- (Skip if this is Patient's initial visit) Have you changed medications since your No No last visit? Any new allergies or adverse reactions No No Had a fall/change in ADL's that may No No increase risk of falls Signs or symptoms of abuse and/or No No neglect since last visit Have you been in the hospital since your No No last visit? Has dressing in place as prescribed Yes Yes Has compression in place as prescribed N/A N/A Has offloadiing in place as prescribed Yes N/A Experienced any changes in pain level or No management Left Footwear Surgical Shoe Regular Shoe with pressure relief insole Right Footwear Diabetic Shoe Surgical Shoe with pressure relief insole Pain Scale: 0-10 Numeric Is Patient Pain Free? Yes Yes - Nurse 1 - General Ulcer Measurement Start: 08/29/22 13:15 Freq: Status: Active Protocol: Activity Type Activity Date Activity User E-sign Co-sign Detail Recorded Client Recorded Date Recorded By Document 08/29/22 13:17 [facility] [id number] 08/29/22 13:22 BM Document 09/18/22 09:49 DL [id number] 09/18/22 09:58 DL 08/29/22 09/18/22 13:17 09:49 Wound Center Nurse 1 #9 Right Inferior Hallux -Combined with other wound No -Current Size (cm) - Length 0.5 0.5 -Current Size (cm) - Width 0.8 0.7 -Current Size (cm) - Depth 0.3 0.2 -Total Square Cm 0.40 0.35 -Date of Last Picture (Recall this 08/29/22 field) -Photo Taken Yes Yes -Epithelialization None Present -Tunneling No -Undermining/Tunneling No -Circular Undermining No -Exudate Amt Medium Medium -Exudate Type Serosanguineous Serosanguineous -Wound Margin Distinct, Distinct, Outline Outline Attached Attached -Granulation Amt Large (67-100%) Large (67-100%) -Granulation Quality Red [place],Red -Slough/Fibrin Yes -Necrosis Amt Small (1-33%) Small (1-33%) -Necrotic Tissue Type Adherent Slough Adherent Slough -Structure Exposed N/A -Texture (Anna-wound Skin Appearance) Assessed, Scarring Scarring -Moisture (Anna-wound Skin Appearance) Assessed, Maceration Maceration -Color (Anna-wound Skin Appearance) Assessed, No Abnormality Erythema -Temperature (Anna-wound Skin No Abnormality No Abnormality Appearance) (Pt Warm) (Pt Warm) -Tenderness on Palpation (Anna-wound No No Skin Appearance) -Ulcer Cleansing Rinsed/ Soap and Water Irrigated with Saline -Foul Odor after Cleansing No No -Anesthetic Used 5% Lidocaine 5% Lidocaine Gel Gel WC - Nurse 2 - General Ulcer CM Notes Start: 08/29/22 13:15 Freq: Status: Active Protocol: Activity Type Activity Date Activity User E-sign Co-sign Detail Recorded Client Recorded Date Recorded By Document 08/29/22 13:35 [id number] 08/29/22 13:40 Document 09/18/22 10:13 [id number] 09/18/22 10:22 08/29/22 09/18/22 13:35 10:13 Wound Center Nurse 2 #9 Right Inferior Hallux -Time 13:35 10:15 -Correct Patient Yes Yes -Correct Side, Site, Position Yes Yes -Correct Procedure Yes Yes -Procedure Performed Yes Yes -Type of Procedure Debridement -Type of Procedure Debridement -Clinical Debridement Subcutaneous Subcutaneous -Tissue Removed Subcutaneous Subcutaneous -Post Debridement (cm) - Length 1.0 0.8 -Post Debridement (cm) - Width 1.1 1.0 -Post Debridement (cm) - Depth 0.2 0.2 -Total Square (Post) (cm) 1.10 0.80 -Area of Debridement (cm) - Length 1.0 0.8 -Area of Debridement (cm) - Width 1.1 1.0 -Total Square (Area) (cm) 1.10 0.80 -Tunneling No No -Undermining/Tunneling No No -Circular Undermining No No -Wound/Ulcer Outcome Not Healed Not Healed -Ulcer Cleansing Rinsed/ Rinsed/ Irrigated with Irrigated with Saline Saline -Foul Odor after Cleansing No No -Bioengineered Tissue No Yes -Type of Bioengineered Tissue Epifix 18mm Disc -Expiration Date 05/20/27 -Product Lot Number [id number] -Percent Used 100 -Lot number of Saline Used [id number] -Bleeding Controlled with Pressure Pressure -Treatment Response Procedure Procedure Tolerated Well Tolerated Well -Offloading Yes Yes -Type of Offloading Surgical Shoe Surgical Shoe -Debridement - Subq, 1st 20sq cm Yes No Pain Scale: 0-10 Numeric Is Patient Pain Free? Yes Yes - Nurse 3 - General Ulcer D/C NN Start: 08/29/22 13:15 Freq: Status: Active Protocol: Activity Type Activity Date Activity User E-sign Co-sign Detail Recorded Client Recorded Date Recorded By Document 08/29/22 13:47 DL [id number] 08/29/22 13:47 DL Document 09/18/22 10:32 DL [id number] 09/18/22 10:33 DL 08/29/22 09/18/22 13:47 10:32 Wound Care Center Nurse 3 #9 Right Inferior Hallux -Ulcer Cleansing Rinsed/ Rinsed/ Irrigated with Irrigated with Saline Saline -Foul Odor after Cleansing No No -Negative Pressure Wound Therapy N/A -Primary Dressing Applied Mepilex Border, Silvercel -Primary Dressing Covered/Secured with Dry Gauze, Secured with Tape -Mepilex Border 1 -Silvercel 1 Treatment Response Procedure Tolerated Well Pain Scale: 0-10 Numeric Is Patient Pain Free? Yes Yes - Visit Discharge Discharge Condition Stable Stable Ambulatory Status Ambulatory Transportation Private Auto Private Auto Accompanied by daughter daughter Medication Reconcilliation completed & Yes provided to patient/care provider Clinical Summary of Care Provided Yes Assessment/Plan Assessment/Plan (1) Type 2 diabetes mellitus with diabetic polyneuropathy: CODE(S): E11.42 - Type 2 diabetes mellitus with diabetic polyneuropathy (2) Non-pressure chronic ulcer of other part of right foot with fat layer exposed: CODE(S): L97.512 - Non-pressure chronic ulcer of other part of right foot with fat layer exposed PLAN: Plan Patient was evaluated at the wound healing center today.? There is a platau in wound healing, he has been approved for an advanced wound healing product, Epifix to help expedite wound healing. Wound care - Epifix #1 applied today. 100% of the product was used, covered with wound veil and secured with steri strips. Topped with a Mepilex dressing. He is not to get the ulcer wet. If he would need to change his outer dressing over the next week, he was instructed to leave the wound veil in place. Compression - Single tubigrip Off-loading - Suman shoe has been re-adjusted at the foot and ankle clinic. He states it feels better with no pressure on his ulcer. Stressed the importance of off loading and not putting pressure on this portion of his foot. Vascular:? 12/19/21 - Right EULALIA - 1.15, Left EULALIA 1.06.? Right digital 0.74, Left digital 0.71, bilateral triphasic. Venous studies showed bilateral no DVT, Bilateral calf with primary veins with reflux, bilateral SPJ reflux. Wound culture obtained on 07/18/22 positive for Staphylococcus pseudintermediu, he completed Augmentin. Wound culture obtained on 05/18/22 which was positive for Staphylococcus pseudintermediu, Staphylococcus saprophyticus and Anaerobic cocci.? Continue Augmentin. Encouraged high protein diet that is low in carbohydrates and sodium. Follow up one week. Call or come in sooner if develop any questions or concerns.
== END 2022-09-19 23:59 | disposition home or self-care (01) ==
LOC: WC 09:45
PROVIDERS: PCP Family Medicine; Visit Provider Nurse Practitioner Family
DX: E11.621 Type 2 diabetes mellitus with foot ulcer (principal); L97.512 Non-pressure chronic ulcer of other part of right foot with fat layer exposed; E11.42 Type 2 diabetes mellitus with diabetic polyneuropathy
CPT/HCPCS: 11042; 15275; Q4186

== ENCOUNTER → 2022-10-02 | Outpatient (CLI) | payer MEDICARE, OTHER, SELFPAY ==
--- NOTE | 2022-10-02 14:41 | RAD_ITS ---
INDICATION: COUGH AND SOB EXAMINATION/TECHNIQUE: X-RAY - XR Chest 2 Views COMPARISON: Series of examinations including 04/28/2022, 06/04/2018, and CT of the chest dated 04/12/2022. FINDINGS: LIFE-SUPPORT AND LINES: 1. Median sternotomy wires and vascular clips again noted. 2. No pneumothorax. HEART AND VESSELS: Cardiac silhouette is unchanged. Minimal vascular congestion. LUNGS AND PLEURAL SPACES: Coarse interstitial prominence at the lung bases. Significant improvement of the previous density/mass in the RIGHT upper lobe however mild residual is noted, estimated at approximately 2.8 x 2.7 cm. No airspace consolidation, no effusion. MEDIASTINUM AND HILAR REGIONS: No masses adenopathy noted. No areas of calcification. Visualized upper airway is normal in position. BONY ELEMENTS: No acute bony changes noted. RAD/Chest PA and Lateral IMPRESSION: 1. Postop changes of prior CABG. 2. No evidence congestive failure. No pneumothorax. 3. Significant improvement of the area of density/mass in RIGHT upper lobe with mild residual measuring 2.8 x 2.7 cm. Consider continued follow-up to assess interval change of the RIGHT upper lobe density/mass. Consider follow-up in approximately 3 mos with plain film and CT.. Electronically Signed: Keith Reeves MD at 19:21 EST ,
[2022-10-02 18:02] LABS: Color, Urine Yellow (Yellow); Glucose, Dipstick 50 mg/dl (Normal); Ketone-Dipstick Negative (Negative); Leukocyte Esterase-Dipstick 500 /ul (Negative); Nitrite-Dipstick Positive (Negative); Occult Blood-Urine 25 /ul (Negative); Protein-Dipstick 100 mg/dl (Negative); Urine Bilirubin Dipstick Negative (Negative); Urine Clarity Cloudy (Clear); Urine Urobilinogen Normal (Normal)
== END | disposition home or self-care (01) ==
LOC: MTLAB 14:38
PROVIDERS: PCP Family Medicine; Referring Provider Nurse Practitioner Family; Visit Provider Nurse Practitioner Family
DX: R35.0 Frequency of micturition (principal); R30.9 Painful micturition, unspecified; R05.9 Cough, unspecified; R06.02 Shortness of breath
CPT/HCPCS: 71046; 81002; 87077; 87086; 87088; 87186

== ENCOUNTER 2022-10-09 13:00 | Outpatient (RCR) | payer MEDICARE, OTHER, SELFPAY ==
[2022-09-20 00:28] VITALS: BP 138/44; PULSE 66; RESP 18; TEMP 36.3
[2022-09-25 14:25] VITALS: BP 133/47; PULSE 73; RESP 16; TEMP 36.2
--- NOTE | 2022-09-25 15:01 | PN.PCM_ITS ---
History of Present Illness Date of Service: 09/25/22 Chief Complaint: right foot ulcer History of Wound: This 77-year-old male returns to the wound healing clinic for reoccurrence of a right medial foot ulcer. Wound care has been Moistened Cass covered with [place] SAP dressing. Patient diabetic neuropathic. 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 Patient offloading right foot with surgical shoe. Wound culture from 07/18/22 positive for Staphylococcus pseudintermediu, he completed Augmentin. Wound care - Epifix #2 applied today. Patient denies constitutional's or pains at this time. No other complaints. Progress of Wound: Right medial foot ulcer has improved and is smaller in size. He has tolerated the Epifix this week. He has been wearing a post surgical shoe. Objective Data Objective Data Vital Signs: Vital Signs Temp Pulse Resp BP O2 Del Method 97.1 F L 73 16 133/47 H Room Air 09/25/22 14:25 09/25/22 14:25 09/25/22 14:25 09/25/22 14:25 09/25/22 14:25 Oxygen Delivery Method Room Air Charges/Coding Procedures Integumentary 150xxx-152xx: 18427 Skin sub graft trnk/arm/leg Debridement Note Debridement Note Wound debrided: medial foot ulcer Laterality: Right Wound Grade/Stage: Stage III Type of Debridement: Excisional debridement Anesthesia Used: 5% Lidocaine Gel Depth: Down to and including healthy tissue and in the subcutaneous layer Percentage of wound debrided: 100 Instrument Used: 3mm curette Tissue Removed: Devitalized tissue and slough Severity: Fat Layer Exposed Amount of bleeding with debridement: Mild Bleeding Controlled with: Compression and gauze Patient tolerated procedure: Patient tolerated procedure well Post-Debridement Measurements and Additional Note: Post-Debridement Measurements/Treatment - Nurse 1 - General Ulcer Assessment Start: 09/25/22 14:25 Freq: Status: Active Protocol: HEMA Activity Type Activity Date Activity User E-sign Co-sign Detail Recorded Client Recorded Date Recorded By Document 09/25/22 14:25 [facility] [id number] 09/25/22 14:32 [facility] 09/25/22 14:25 - Today's Visit Information Type of service Follow-up Visit (Physician/[employer]ORATORY PROFESSIONAL ) Arrival Mode Ambulatory,Cane Transfer Assistance None Accompanied by WEI IN LAW Patient Identification Verified (Name & Yes ) Patient Requires Transmission-Based No Precautions Vital Signs Temperature (97.8 F-99.1 F) 97.1 F L Temperature Source Temporal Pulse Rate (60-100) 73 Pulse Location Monitor Respiratory Rate (12-18) 16 Respiratory rate source Observation Oxygen Delivery Method Room Air Blood Pressure (90/60-120/80) 133/47 H Blood Pressure Mean (mm Hg) 75 Source Monitor Position Sitting Blood Pressure Location Left Arm History Since Last Visit- (Skip if this is Patient's initial visit) Have you changed medications since your No last visit? Any new allergies or adverse reactions No Had a fall/change in ADL's that may No increase risk of falls Signs or symptoms of abuse and/or No neglect since last visit Have you been in the hospital since your No last visit? Has dressing in place as prescribed Yes Has compression in place as prescribed N/A Has offloadiing in place as prescribed Yes Experienced any changes in pain level or No management Left Footwear Diabetic Shoe Right Footwear Surgical Shoe with pressure relief insole Pain Scale: 0-10 Numeric Is Patient Pain Free? Yes WC - Nurse 1 - General Ulcer Measurement Start: 09/25/22 14:25 Freq: Status: Active Protocol: Activity Type Activity Date Activity User E-sign Co-sign Detail Recorded Client Recorded Date Recorded By Document 09/25/22 14:25 [facility] [id number] 09/25/22 14:32 [facility] 09/25/22 14:25 Wound Center Nurse 1 #9 Right Inferior Hallux -Current Size (cm) - Length 0.5 -Current Size (cm) - Width 0.6 -Current Size (cm) - Depth 0.3 -Total Square Cm 0.30 -Date of Last Picture (Recall this 09/25/22 field) -Photo Taken Yes -Epithelialization Small 1-33% -Tunneling No -Undermining/Tunneling No -Circular Undermining No -Exudate Amt Medium -Exudate Type Serosanguineous -Wound Margin Distinct, Outline Attached -Granulation Amt Large (67-100%) -Granulation Quality Red -Slough/Fibrin Yes -Necrosis Amt Small (1-33%) -Necrotic Tissue Type Adherent Slough -Texture (Anna-wound Skin Appearance) Assessed, Scarring -Moisture (Anna-wound Skin Appearance) Assessed, Maceration,Dry/ Scaly -Color (Anna-wound Skin Appearance) Assessed -Temperature (Anna-wound Skin No Abnormality Appearance) (Pt Warm) -Tenderness on Palpation (Anna-wound No Skin Appearance) -Ulcer Cleansing Soap and Water -Foul Odor after Cleansing No -Anesthetic Used 5% Lidocaine Gel WC - Nurse 2 - General Ulcer CM Notes Start: 09/25/22 14:25 Freq: Status: Active Protocol: Activity Type Activity Date Activity User E-sign Co-sign Detail Recorded Client Recorded Date Recorded By Document 09/25/22 14:42 [id number] 09/25/22 14:51 09/25/22 14:42 Wound Center Nurse 2 -Time 14:42 -Correct Patient Yes -Correct Side, Site, Position Yes -Correct Procedure Yes -Procedure Performed Yes -Type of Procedure Debridement -Clinical Debridement Subcutaneous -Tissue Removed Subcutaneous -Post Debridement (cm) - Length 0.5 -Post Debridement (cm) - Width 0.7 -Post Debridement (cm) - Depth 0.2 -Total Square (Post) (cm) 0.35 -Area of Debridement (cm) - Length 0.5 -Area of Debridement (cm) - Width 0.7 -Total Square (Area) (cm) 0.35 -Tunneling No -Undermining/Tunneling No -Circular Undermining No -Wound/Ulcer Outcome Not Healed -Ulcer Cleansing Rinsed/ Irrigated with Saline -Foul Odor after Cleansing No -Bioengineered Tissue Yes -Type of Bioengineered Tissue Epifix 18mm Disc -Expiration Date 06/20/27 -Product Lot Number [id number] -Percent Used 100 -Lot number of Saline Used [id number] -Bleeding Controlled with Pressure -Treatment Response Procedure Tolerated Well -Offloading Yes -Type of Offloading Surgical Shoe -Debridement - Subq, 1st 20sq cm No -Apply Skin Sub - 1st 25 sq cm - Feet 1 -Epifix 18mm Disc 3 Pain Scale: 0-10 Numeric Is Patient Pain Free? Yes WC - Nurse 3 - General Ulcer D/C NN Start: 09/25/22 14:25 Freq: Status: Active Protocol: Activity Type Activity Date Activity User E-sign Co-sign Detail Recorded Client Recorded Date Recorded By Document 09/25/22 14:52 DORA [id number] 09/25/22 14:53 DORA 09/25/22 14:52 Wound Care Center Nurse 3 #9 Right Inferior Hallux -Ulcer Cleansing Rinsed/ Irrigated with Saline -Foul Odor after Cleansing No -Primary Dressing Applied C Hydrogel ($) -Primary Dressing Covered/Secured with Dry Gauze -Mepilex Border 1 Pain Scale: 0-10 Numeric Is Patient Pain Free? Yes WC - Visit Discharge Discharge Condition Stable Ambulatory Status Ambulatory Transportation Private Auto Accompanied by LUPE Medication Reconcilliation completed & Yes provided to patient/care provider Clinical Summary of Care Provided Yes Assessment/Plan Assessment/Plan (1) Type 2 diabetes mellitus with diabetic polyneuropathy: CODE(S): E11.42 - Type 2 diabetes mellitus with diabetic polyneuropathy (2) Non-pressure chronic ulcer of other part of right foot with fat layer exposed: CODE(S): L97.512 - Non-pressure chronic ulcer of other part of right foot with fat layer exposed PLAN: Plan Patient was evaluated at the wound healing center today.? There is a platau in wound healing, he has been approved for an advanced wound healing product, Epifix to help expedite wound healing. Wound care - Epifix #2 applied today. 100% of the product was used, covered with wound veil and secured with steri strips. Topped with a Mepilex dressing. He is not to get the ulcer wet. If he would need to change his outer dressing over the next week, he was instructed to leave the wound veil in place. Compression - Single tubigrip Off-loading - Suman shoe has been re-adjusted at the foot and ankle clinic. He states it feels better with no pressure on his ulcer. Stressed the importance of off loading and not putting pressure on this portion of his foot. Vascular:? 12/19/21 - Right EULALIA - 1.15, Left EULALIA 1.06.? Right digital 0.74, Left digital 0.71, bilateral triphasic. Venous studies showed bilateral no DVT, Bilateral calf with primary veins with reflux, bilateral SPJ reflux. Wound culture obtained on 07/18/22 positive for Staphylococcus pseudintermediu, he completed Augmentin. Wound culture obtained on 05/18/22 which was positive for Staphylococcus pseudintermediu, Staphylococcus saprophyticus and Anaerobic cocci.? Continue Augmentin. Encouraged high protein diet that is low in carbohydrates and sodium. Follow up one week. Call or come in sooner if develop any questions or concerns.
[2022-10-02 13:28] VITALS: BP 149/69; PULSE 82; RESP 20; TEMP 36.2
--- NOTE | 2022-10-02 14:57 | PN.PCM_ITS ---
History of Present Illness Date of Service: 10/02/22 Chief Complaint: right foot ulcer History of Wound: This 77-year-old male returns to the wound healing clinic for reoccurrence of a right medial foot ulcer. Wound care has been Moistened Cass covered with [place] SAP dressing. Patient diabetic neuropathic. 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 Patient offloading right foot with surgical shoe. Wound culture from 07/18/22 positive for Staphylococcus pseudintermediu, he completed Augmentin. Wound care - Epifix #3 applied today. Patient denies constitutional's or pains at this time. No other complaints. Progress of Wound: Right medial foot ulcer has improved and is smaller in size. He has tolerated the Epifix this week. He has been wearing a post surgical shoe. He comes in today with a cough that causes him to turn red and causes him to have a difficult time catching his breath. He has expiratory wheezes bilaterally. He has been taking plain Mucinex to help with his cough. He also is complaining of burning and urgency with urination. He states he was up to void so many times that the cat finally stopped following me to the bathroom. Objective Data Objective Data Vital Signs: Vital Signs Temp Pulse Resp BP O2 Del Method 97.2 F L 82 20 H 149/69 H Room Air 10/02/22 13:28 10/02/22 13:28 10/02/22 13:28 10/02/22 13:28 09/25/22 14:25 Oxygen Delivery Method Room Air Charges/Coding Visit Charges Office Visits / Consults: 15018 OV L3 Est (25 modifier) Procedures Integumentary 150xxx-152xx: 74410 Skin sub graft face/nk/hf/g Physical Exam Const alert and oriented x3 Constitutional Narrative: Patient appears pale and does not look like he feels well. General Appearance: cooperative HEENT normocephalic Lymph Lymphatic: no lymphedema noted Resp Resp Narrative: Moist, harsh, non productive cough present. Patient becomes very red faced with coughing and it takes a moment for him to catch his breath after a coughing episode. He is having expiratory wheezes bilaterally. Cardio regular rate and regular rhythm Extremity normal capillary refill General Extremity: Negative for edema Skin Wound Narrative: Right medial foot ulcer is slightly smaller in size. Ulcer bed is beefy pink. Neuro Speech: speech normal Psych affect normal Debridement Note Debridement Note Wound debrided: medial foot ulcer Laterality: Right Wound Grade/Stage: Stage III Type of Debridement: Excisional debridement Anesthesia Used: 5% Lidocaine Gel Depth: Down to and including healthy tissue and in the subcutaneous layer Percentage of wound debrided: 100 Instrument Used: 3mm curette Tissue Removed: Devitalized tissue and slough Severity: Fat Layer Exposed Amount of bleeding with debridement: Mild Bleeding Controlled with: Compression and gauze Patient tolerated procedure: Patient tolerated procedure well Post-Debridement Measurements and Additional Note: Post-Debridement Measurements/Treatment - Nurse 1 - General Ulcer Assessment Start: 09/25/22 14:25 Freq: Status: Active Protocol: HEMA Activity Type Activity Date Activity User E-sign Co-sign Detail Recorded Client Recorded Date Recorded By Document 09/25/22 14:25 [facility] [id number] 09/25/22 14:32 [facility] Document 10/02/22 13:28 ML [id number] 10/02/22 13:32 ML 09/25/22 10/02/22 14:25 13:28 - Today's Visit Information Type of service Follow-up Visit Follow-up Visit (Physician/CLINICAL NURSING INTERN (Physician/CLINICAL NURSING INTERN ) ) Arrival Mode Ambulatory,Cane Cane Transfer Assistance None None Accompanied by WEI IN LAW Patient Identification Verified (Name & Yes Yes ) Patient Requires Transmission-Based No No Precautions Safety Precautions NA Finger Stick Blood Sugar(mg/dl) (if 164 indicated): Blood Sugar Stated by Patient Vital Signs Temperature (97.8 F-99.1 F) 97.1 F L 97.2 F L Temperature Source Temporal Temporal Pulse Rate (60-100) 73 82 Pulse Location Monitor Monitor Respiratory Rate (12-18) 16 20 H Respiratory rate source Observation Observation Oxygen Delivery Method Room Air Blood Pressure (90/60-120/80) 133/47 H 149/69 H Blood Pressure Mean (mm Hg) 75 95 Source Monitor Monitor Position Sitting Sitting Blood Pressure Location Left Arm Right Arm History Since Last Visit- (Skip if this is Patient's initial visit) Have you changed medications since your No No last visit? Any new allergies or adverse reactions No No Had a fall/change in ADL's that may No No increase risk of falls Signs or symptoms of abuse and/or No No neglect since last visit Have you been in the hospital since your No last visit? Has dressing in place as prescribed Yes Yes Has compression in place as prescribed N/A N/A Has offloadiing in place as prescribed Yes N/A Experienced any changes in pain level or No No management Left Footwear Diabetic Shoe Regular Shoe Right Footwear Surgical Shoe Surgical Shoe with pressure with pressure relief insole relief insole Pain Scale: 0-10 Numeric Is Patient Pain Free? Yes Yes WC - Nurse 1 - General Ulcer Measurement Start: 09/25/22 14:25 Freq: Status: Active Protocol: Activity Type Activity Date Activity User E-sign Co-sign Detail Recorded Client Recorded Date Recorded By Document 09/25/22 14:25 [facility] [id number] 09/25/22 14:32 [facility] Document 10/02/22 13:28 ML [id number] 10/02/22 13:32 ML 09/25/22 10/02/22 14:25 13:28 Wound Center Nurse 1 #9 Right Inferior Hallux -Current Size (cm) - Length 0.5 1 -Current Size (cm) - Width 0.6 1 -Current Size (cm) - Depth 0.3 0.1 -Total Square Cm 0.30 1 -Date of Last Picture (Recall this 09/25/22 field) -Photo Taken Yes -Epithelialization Small 1-33% -Tunneling No -Undermining/Tunneling No -Circular Undermining No -Exudate Amt Medium Large -Exudate Type Serosanguineous Serosanguineous -Wound Margin Distinct, Distinct, Outline Outline Attached Attached -Granulation Amt Large (67-100%) None Present (0 %) -Granulation Quality Red -Slough/Fibrin Yes Yes -Necrosis Amt Small (1-33%) -Necrotic Tissue Type Adherent Slough Adherent Slough -Texture (Anna-wound Skin Appearance) Assessed, Assessed Scarring -Moisture (Anna-wound Skin Appearance) Assessed, Assessed Maceration,Dry/ Scaly -Color (Anna-wound Skin Appearance) Assessed Assessed -Temperature (Anna-wound Skin No Abnormality No Abnormality Appearance) (Pt Warm) (Pt Warm) -Tenderness on Palpation (Anna-wound No No Skin Appearance) -Ulcer Cleansing Soap and Water Soap and Water -Foul Odor after Cleansing No No -Anesthetic Used 5% Lidocaine 5% Lidocaine Gel Gel WC - Nurse 2 - General Ulcer CM Notes Start: 09/25/22 14:25 Freq: Status: Active Protocol: Activity Type Activity Date Activity User E-sign Co-sign Detail Recorded Client Recorded Date Recorded By Document 09/25/22 14:42 [id number] 09/25/22 14:51 Document 10/02/22 14:14 [id number] 10/02/22 14:17 09/25/22 10/02/22 14:42 14:14 Wound Center Nurse 2 #9 Right Inferior Hallux -Time 14:42 14:14 -Correct Patient Yes Yes -Correct Side, Site, Position Yes Yes -Correct Procedure Yes Yes -Procedure Performed Yes Yes -Type of Procedure Debridement Debridement -Clinical Debridement Subcutaneous Subcutaneous -Tissue Removed Subcutaneous Subcutaneous -Post Debridement (cm) - Length 0.5 0.7 -Post Debridement (cm) - Width 0.7 0.7 -Post Debridement (cm) - Depth 0.2 0.2 -Total Square (Post) (cm) 0.35 0.49 -Area of Debridement (cm) - Length 0.5 0.7 -Area of Debridement (cm) - Width 0.7 0.7 -Total Square (Area) (cm) 0.35 0.49 -Tunneling No No -Undermining/Tunneling No No -Circular Undermining No No -Wound/Ulcer Outcome Not Healed Not Healed -Ulcer Cleansing Rinsed/ Rinsed/ Irrigated with Irrigated with Saline Saline -Foul Odor after Cleansing No No -Bioengineered Tissue Yes Yes -Type of Bioengineered Tissue Epifix 18mm Epifix 18mm Disc Disc -Expiration Date 06/20/27 05/20/27 -Product Lot Number [id number] -Percent Used 100 100 -Lot number of Saline Used [id number] -Bleeding Controlled with Pressure Pressure -Treatment Response Procedure Procedure Tolerated Well Tolerated Well -Offloading Yes Yes -Type of Offloading Surgical Shoe Surgical Shoe -Debridement - Subq, 1st 20sq cm No No -Apply Skin Sub - 1st 25 sq cm - Feet 1 1 -Epifix 18mm Disc 3 3 Pain Scale: 0-10 Numeric Is Patient Pain Free? Yes Yes - Nurse 3 - General Ulcer D/C NN Start: 09/25/22 14:25 Freq: Status: Active Protocol: Activity Type Activity Date Activity User E-sign Co-sign Detail Recorded Client Recorded Date Recorded By Document 09/25/22 14:52 [id number] 09/25/22 14:53 Document 10/02/22 14:18 [id number] 10/02/22 14:19 09/25/22 10/02/22 14:52 14:18 Wound Care Center Nurse 3 #9 Right Inferior Hallux -Ulcer Cleansing Rinsed/ Rinsed/ Irrigated with Irrigated with Saline Saline -Foul Odor after Cleansing No No -Primary Dressing Applied C Hydrogel ($) Mepilex Border -Primary Dressing Covered/Secured with Dry Gauze Dry Gauze -Mepilex Border 1 1 Pain Scale: 0-10 Numeric Is Patient Pain Free? Yes Yes - Visit Discharge Discharge Condition Stable Stable Ambulatory Status Ambulatory Ambulatory Transportation Private Auto Private Auto Accompanied by LUPE ANDRADE Medication Reconcilliation completed & Yes Yes provided to patient/care provider Clinical Summary of Care Provided Yes Yes Assessment/Plan Assessment/Plan (1) Type 2 diabetes mellitus with diabetic polyneuropathy: CODE(S): E11.42 - Type 2 diabetes mellitus with diabetic polyneuropathy (2) Non-pressure chronic ulcer of other part of right foot with fat layer exposed: CODE(S): L97.512 - Non-pressure chronic ulcer of other part of right foot with fat layer exposed (3) Cough in adult patient: CODE(S): R05.9 - Cough, unspecified (4) Urinary urgency: CODE(S): R39.15 - Urgency of urination (5) Pain with urination: CODE(S): R30.9 - Painful micturition, unspecified (6) History of malignant neoplasm of lung in adulthood: CODE(S): Z85.118 - Personal history of other malignant neoplasm of bronchus and lung (7) Shortness of breath: CODE(S): R06.02 - Shortness of breath PLAN: Plan Patient was evaluated at the wound healing center today.? There is a platau in wound healing, he has been approved for an advanced wound healing product, Epifix to help expedite wound healing. Wound care - Epifix #3 applied today. 100% of the product was used, covered with wound veil and secured with steri strips. Topped with a Mepilex dressing. He is not to get the ulcer wet. If he would need to change his outer dressing over the next week, he was instructed to leave the wound veil in place. Compression - Single tubigrip Off-loading - Suman shoe has been re-adjusted at the foot and ankle clinic. He states it feels better with no pressure on his ulcer. Stressed the importance of off loading and not putting pressure on this portion of his foot. Vascular:? 12/19/21 - Right EULALIA - 1.15, Left EULALIA 1.06.? Right digital 0.74, Left digital 0.71, bilateral triphasic. Venous studies showed bilateral no DVT, Bilateral calf with primary veins with reflux, bilateral SPJ reflux. Wound culture obtained on 07/18/22 positive for Staphylococcus pseudintermediu, he completed Augmentin. Wound culture obtained on 05/18/22 which was positive for Staphylococcus pseudintermediu, Staphylococcus saprophyticus and Anaerobic cocci.? Continue Augmentin. Encouraged high protein diet that is low in carbohydrates and sodium. Follow up one week. Call or come in sooner if develop any questions or concerns. With his bouts of coughing and SOB and expiratory wheezes, I am ordering a chest xray. Patient has a recent history or radiation for an upper right lobe lung mass. He is supposed to have either a CT scan or MRI next week, but with the severity of his symptoms, a chest xray today is necessary. Also will order a U/A with culture and sensitivity since he is complaining of urinary urgency, frequency and burning. I phoned his PCP's office, Dr. Johnson, and left a message about what I ordered for the patient due the severity of his symptoms. Instructed patient and his daughter that if his symptoms worsen, they should go to the ED.
[2022-10-09 12:59] VITALS: BP 148/63; PULSE 89; RESP 22; TEMP 36.4
--- NOTE | 2022-10-09 16:09 | PN.PCM_ITS ---
History of Present Illness Date of Service: 10/09/22 Chief Complaint: right foot ulcer History of Wound: This 77-year-old male returns to the wound healing clinic for reoccurrence of a right medial foot ulcer. Wound care has been Moistened [place] covered with [place] SAP dressing. Patient diabetic neuropathic. 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 Patient offloading right foot with surgical shoe. Wound culture from 07/18/22 positive for Staphylococcus pseudintermediu, he completed Augmentin. Wound care - Epifix #4 applied today. Patient denies constitutional's or pains at this time. No other complaints. Progress of Wound: Right medial foot ulcer has improved and is smaller in size. He has tolerated the Epifix this week. He has been wearing a post surgical shoe. He is feeling better. His PCP, Dr. Johnson treated for his UTI that was found on his U/A and culture. Objective Data Objective Data Vital Signs: Vital Signs Temp Pulse Resp BP O2 Del Method 97.5 F L 89 22 H 148/63 H Room Air 10/09/22 12:59 10/09/22 12:59 10/09/22 12:59 10/09/22 12:59 09/25/22 14:25 Oxygen Delivery Method Room Air Charges/Coding Procedures Integumentary 150xxx-152xx: 02711 Skin sub graft face/nk/hf/g Debridement Note Debridement Note Wound debrided: medial foot ulcer Laterality: Right Wound Grade/Stage: Stage III Type of Debridement: Excisional debridement Anesthesia Used: 5% Lidocaine Gel Depth: Down to and including healthy tissue and in the subcutaneous layer Percentage of wound debrided: 100 Instrument Used: 3mm curette Tissue Removed: Devitalized tissue and slough Severity: Fat Layer Exposed Amount of bleeding with debridement: Mild Bleeding Controlled with: Compression and gauze Patient tolerated procedure: Patient tolerated procedure well Post-Debridement Measurements and Additional Note: Post-Debridement Measurements/Treatment WC - Nurse 1 - General Ulcer Assessment Start: 09/25/22 14:25 Freq: Status: Active Protocol: HEMA Activity Type Activity Date Activity User E-sign Co-sign Detail Recorded Client Recorded Date Recorded By Document 09/25/22 14:25 [facility] [id number] 09/25/22 14:32 BMF Document 10/02/22 13:28 ML [id number] 10/02/22 13:32 ML Document 10/09/22 12:59 DL [id number] 10/09/22 13:04 DL 09/25/22 10/02/22 10/09/22 14:25 13:28 12:59 WC - Today's Visit Information Type of service Follow-up Visit Follow-up Visit Follow-up Visit (Physician/CIRCULAR GANG SAW OPERATOR (Physician/CIRCULAR GANG SAW OPERATOR (Physician/CIRCULAR GANG SAW OPERATOR ) ) ) Arrival Mode Ambulatory,Cane Cane Ambulatory,Cane Transfer Assistance None None None Accompanied by WEI IN [employer] Patient Identification Verified (Name & Yes Yes Yes ) Patient Requires Transmission-Based No No No Precautions Safety Precautions NA Finger Stick Blood Sugar(mg/dl) (if 164 151 indicated): Blood Sugar Stated by Stated by Patient Patient Vital Signs Temperature (97.8 F-99.1 F) 97.1 F L 97.2 F L 97.5 F L Temperature Source Temporal Temporal Temporal Pulse Rate (60-100) 73 82 89 Pulse Location Monitor Monitor Respiratory Rate (12-18) 16 20 H 22 H Respiratory rate source Observation Observation Observation Oxygen Delivery Method Room Air Blood Pressure (90/60-120/80) 133/47 H 149/69 H 148/63 H Blood Pressure Mean (mm Hg) 75 95 91 Source Monitor Monitor Monitor Position Sitting Sitting Blood Pressure Location Left Arm Right Arm History Since Last Visit- (Skip if this is Patient's initial visit) Have you changed medications since your No No No last visit? Any new allergies or adverse reactions No No No Had a fall/change in ADL's that may No No No increase risk of falls Signs or symptoms of abuse and/or No No No neglect since last visit Have you been in the hospital since your No No last visit? Has dressing in place as prescribed Yes Yes Yes Has compression in place as prescribed N/A N/A N/A Has offloadiing in place as prescribed Yes N/A Yes Experienced any changes in pain level or No No No management Left Footwear Diabetic Shoe Regular Shoe Right Footwear Surgical Shoe Surgical Shoe Surgical Shoe with pressure with pressure with pressure relief insole relief insole relief insole Pain Scale: 0-10 Numeric Is Patient Pain Free? Yes Yes Yes - Nurse 1 - General Ulcer Measurement Start: 09/25/22 14:25 Freq: Status: Active Protocol: Activity Type Activity Date Activity User E-sign Co-sign Detail Recorded Client Recorded Date Recorded By Document 09/25/22 14:25 BMF [id number] 09/25/22 14:32 BMF Document 10/02/22 13:28 ML [id number] 10/02/22 13:32 ML Document 10/09/22 12:59 DL [id number] 10/09/22 13:04 DL 09/25/22 10/02/22 10/09/22 14:25 13:28 12:59 Wound Center Nurse 1 #9 Right Inferior Hallux -Current Size (cm) - Length 0.5 1 0.3 -Current Size (cm) - Width 0.6 1 0.5 -Current Size (cm) - Depth 0.3 0.1 0.2 -Total Square Cm 0.30 1 0.15 -Date of Last Picture (Recall this 09/25/22 field) -Photo Taken Yes No -Epithelialization Small 1-33% -Tunneling No -Undermining/Tunneling No -Circular Undermining No -Exudate Amt Medium Large Small -Exudate Type Serosanguineous Serosanguineous Serosanguineous -Wound Margin Distinct, Distinct, Distinct, Outline Outline Outline Attached Attached Attached -Granulation Amt Large (67-100%) None Present (0 Large (67-100%) %) -Granulation Quality [place] -Slough/Fibrin Yes Yes -Necrosis Amt Small (1-33%) Small (1-33%) -Necrotic Tissue Type Adherent Slough Adherent Slough Adherent Slough -Structure Exposed N/A -Texture (Anna-wound Skin Appearance) Assessed, Assessed Callus Scarring -Moisture (Anna-wound Skin Appearance) Assessed, Assessed Dry/Scaly Maceration,Dry/ Scaly -Color (Anna-wound Skin Appearance) Assessed Assessed Hemosiderin Staining -Temperature (Anna-wound Skin No Abnormality No Abnormality No Abnormality Appearance) (Pt Warm) (Pt Warm) (Pt Warm) -Tenderness on Palpation (Anna-wound No No Skin Appearance) -Ulcer Cleansing Soap and Water Soap and Water Soap and Water -Foul Odor after Cleansing No No No -Anesthetic Used 5% Lidocaine 5% Lidocaine 5% Lidocaine Gel Gel Gel WC - Nurse 2 - General Ulcer CM Notes Start: 09/25/22 14:25 Freq: Status: Active Protocol: Activity Type Activity Date Activity User E-sign Co-sign Detail Recorded Client Recorded Date Recorded By Document 09/25/22 14:42 [id number] 09/25/22 14:51 Document 10/02/22 14:14 [id number] 10/02/22 14:17 Document 10/09/22 13:17 [id number] 10/09/22 13:26 09/25/22 10/02/22 10/09/22 14:42 14:14 13:17 Wound Center Nurse 2 #9 Right Inferior Hallux -Time 14:42 14:14 13:23 -Correct Patient Yes Yes Yes -Correct Side, Site, Position Yes Yes Yes -Correct Procedure Yes Yes Yes -Procedure Performed Yes Yes Yes -Type of Procedure Debridement Debridement Debridement -Clinical Debridement Subcutaneous Subcutaneous Subcutaneous -Tissue Removed Subcutaneous Subcutaneous Subcutaneous -Post Debridement (cm) - Length 0.5 0.7 0.6 -Post Debridement (cm) - Width 0.7 0.7 0.6 -Post Debridement (cm) - Depth 0.2 0.2 0.2 -Total Square (Post) (cm) 0.35 0.49 0.36 -Area of Debridement (cm) - Length 0.5 0.7 0.6 -Area of Debridement (cm) - Width 0.7 0.7 0.6 -Total Square (Area) (cm) 0.35 0.49 0.36 -Tunneling No No No -Undermining/Tunneling No No No -Circular Undermining No No No -Wound/Ulcer Outcome Not Healed Not Healed Not Healed -Ulcer Cleansing Rinsed/ Rinsed/ Rinsed/ Irrigated with Irrigated with Irrigated with Saline Saline Saline -Foul Odor after Cleansing No No No -Bioengineered Tissue Yes Yes Yes -Type of Bioengineered Tissue Epifix 18mm Epifix 18mm Epifix 18mm Disc Disc Disc -Expiration Date 06/20/27 05/20/27 06/20/27 -Product Lot Number [id number] -Percent Used 100 100 100 -Lot number of Saline Used [id number] -Bleeding Controlled with Pressure Pressure Pressure -Treatment Response Procedure Procedure Procedure Tolerated Well Tolerated Well Tolerated Well -Offloading Yes Yes Yes -Type of Offloading Surgical Shoe Surgical Shoe Surgical Shoe -Debridement - Subq, 1st 20sq cm No No No -Apply Skin Sub - 1st 25 sq cm - Feet 1 1 1 -Epifix 18mm Disc 3 3 3 Pain Scale: 0-10 Numeric Is Patient Pain Free? Yes Yes Yes - Nurse 3 - General Ulcer D/C NN Start: 09/25/22 14:25 Freq: Status: Active Protocol: Activity Type Activity Date Activity User E-sign Co-sign Detail Recorded Client Recorded Date Recorded By Document 09/25/22 14:52 [id number] 09/25/22 14:53 Document 10/02/22 14:18 [id number] 10/02/22 14:19 09/25/22 10/02/22 14:52 14:18 Wound Care Center Nurse 3 #9 Right Inferior Hallux -Ulcer Cleansing Rinsed/ Rinsed/ Irrigated with Irrigated with Saline Saline -Foul Odor after Cleansing No No -Primary Dressing Applied C Hydrogel ($) Mepilex Border -Primary Dressing Covered/Secured with Dry Gauze Dry Gauze -Mepilex Border 1 1 Pain Scale: 0-10 Numeric Is Patient Pain Free? Yes Yes - Visit Discharge Discharge Condition Stable Stable Ambulatory Status Ambulatory Ambulatory Transportation Private Auto Private Auto Accompanied by LUPE ANDRADE Medication Reconcilliation completed & Yes Yes provided to patient/care provider Clinical Summary of Care Provided Yes Yes Assessment/Plan Assessment/Plan (1) Type 2 diabetes mellitus with diabetic polyneuropathy: CODE(S): E11.42 - Type 2 diabetes mellitus with diabetic polyneuropathy (2) Non-pressure chronic ulcer of other part of right foot with fat layer exposed: CODE(S): L97.512 - Non-pressure chronic ulcer of other part of right foot with fat layer exposed (3) Cough in adult patient: CODE(S): R05.9 - Cough, unspecified (4) Urinary urgency: CODE(S): R39.15 - Urgency of urination (5) Pain with urination: CODE(S): R30.9 - Painful micturition, unspecified (6) History of malignant neoplasm of lung in adulthood: CODE(S): Z85.118 - Personal history of other malignant neoplasm of bronchus and lung (7) Shortness of breath: CODE(S): R06.02 - Shortness of breath PLAN: Plan Patient was evaluated at the wound healing center today.? There is a platau in wound healing, he has been approved for an advanced wound healing product, Epifix to help expedite wound healing. Wound care - Epifix #4 applied today. 100% of the product was used, covered with wound veil and secured with steri strips. Topped with a Mepilex dressing. He is not to get the ulcer wet. If he would need to change his outer dressing over the next week, he was instructed to leave the wound veil in place. Compression - Single tubigrip Off-loading - Suman shoe has been re-adjusted at the foot and ankle clinic. He states it feels better with no pressure on his ulcer. Stressed the importance of off loading and not putting pressure on this portion of his foot. Vascular:? 12/19/21 - Right EULALIA - 1.15, Left EULALIA 1.06.? Right digital 0.74, Left digital 0.71, bilateral triphasic. Venous studies showed bilateral no DVT, Bilateral calf with primary veins with reflux, bilateral SPJ reflux. Wound culture obtained on 07/18/22 positive for Staphylococcus pseudintermediu, he completed Augmentin. Wound culture obtained on 05/18/22 which was positive for Staphylococcus pseudintermediu, Staphylococcus saprophyticus and Anaerobic cocci.? Continue Augmentin. Encouraged high protein diet that is low in carbohydrates and sodium. Follow up one week. Call or come in sooner if develop any questions or concerns. With his bouts of coughing and SOB and expiratory wheezes, His chest xray showed Postop changes of prior CABG, No evidence congestive failure. No pneumothorax. Significant improvement of the area of density;/mass in RIGHT upper lobe with mild residual measuring 2.8 x 2.7 cm. Consider continued follow-up to assess interval change of the RIGHT upper lobe density/mass. Consider follow-up in approximately 3 mos with plain film and CT.. Patient has a recent history or radiation for an upper right lobe lung mass. He has a CT scheduled for today, 2/20/23. His U/A was positive for protein, glucose, occult blood, Nitrites and Leukocyte Esterase. Urine culture positive for Staphylococcus epidermidis and GNR lactose associate drafter. I spoke with his PCP, Dr Johnson, who was made aware of the results and he said he would treat him from these results. Follow up one week.
== END 2022-10-17 23:59 | disposition home or self-care (01) ==
LOC: WC 13:00
PROVIDERS: PCP Family Medicine; Visit Provider Nurse Practitioner Family
DX: E11.621 Type 2 diabetes mellitus with foot ulcer (principal); C34.11 Malignant neoplasm of upper lobe, right bronchus or lung; L97.512 Non-pressure chronic ulcer of other part of right foot with fat layer exposed; E11.42 Type 2 diabetes mellitus with diabetic polyneuropathy; R39.15 Urgency of urination; R30.9 Painful micturition, unspecified; R06.02 Shortness of breath
CPT/HCPCS: 15275; 71260; Q4186; Q9967

== ENCOUNTER → 2022-10-09 | Outpatient (CLI) | payer MEDICARE, OTHER, SELFPAY ==
--- NOTE | 2022-10-09 14:23 | CT_ITS ---
STUDY: CT CHEST WITH CONTRAST REASON FOR EXAM: Male, 77 years old. NSCLC -- IV CONTRAST ONLY. The patient is status post radiation therapy. RADIATION DOSAGE (If Supplied By Facility): CTDIvol = ( 14.16 ) mGy, DLP = ( 543.75 ) mGycm TECHNIQUE: Transaxial imaging was performed following intravenous administration of IV 100mL Isovue-300. Multiplanar coronal and sagittal images were reformatted. Individualized dose optimization techniques were used for this CT. COMPARISON: Comparison is made with prior study dated 04/12/2022. FINDINGS: CHEST The previously seen right upper lobe mass has decreased in size. It presently measures 2.3 cm by 2.7 cm. It previously measured 3.8 cm x 3.5 cm. Increased markings are seen in the right upper lobe with areas of scarring suggestive of post radiation fibrosis. There is no demonstrated pleural abnormality. Sternal cerclage wires and vascular clips are present from a prior sternotomy and coronary artery bypass graft procedure (CABG). There are calcifications of the coronary arteries. Normal mediastinum. Normal hilar regions. Normal unenhanced pulmonary arteries. There is atherosclerotic calcification of the aortic arch with tortuosity and elongation of the aortic arch and descending thoracic aorta. There are multi-level degenerative changes of the thoracic spine. There is no demonstrated abnormality of the visualized upper abdomen. CT/Chest WITH Contrast IMPRESSION: Interval decrease in size of the right upper lobe mass lesion with evidence of increased markings suggestive of post radiation scarring. Electronically Signed: Kenyon Flores MD at 15:41 EST ,
[2022-10-09 14:55] LABS: CREATININE FINGERSTICK 1.4 mg/dL (0.70-1.30)
== END | disposition home or self-care (01) ==
LOC: CT 14:22
PROVIDERS: PCP Family Medicine; Visit Provider Internal Medicine Medical Oncology
DX: C34.11 Malignant neoplasm of upper lobe, right bronchus or lung (principal)
CPT/HCPCS: 71260; Q9967

== ENCOUNTER 2022-11-08 09:45 | Outpatient (RCR) | payer MEDICARE, OTHER, SELFPAY ==
[2022-10-18 00:19] VITALS: BP 148/63; PULSE 89; RESP 22; TEMP 36.4
[2022-10-18 09:20] VITALS: BP 143/53; PULSE 71; RESP 18; TEMP 36.2
--- NOTE | 2022-10-18 10:14 | PN.PCM_ITS ---
History of Present Illness Date of Service: 10/18/22 Chief Complaint: right foot ulcer History of Wound: This 77-year-old male returns to the wound healing clinic for reoccurrence of a right medial foot ulcer. Wound care has been Moistened Cass covered with [place] SAP dressing. Patient diabetic neuropathic. 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 Patient offloading right foot with surgical shoe. Wound culture from 07/18/22 positive for Staphylococcus pseudintermediu, he completed Augmentin. Wound care - Epifix #5 applied today. Patient denies constitutional's or pains at this time. No other complaints. Progress of Wound: Right hallux ulcer is stable. There was increased callus surrounding the ulcer. Patient states he has been trying to off load. He is wearing a postop shoe. Objective Data Objective Data Vital Signs: Vital Signs Temp Pulse Resp BP 97.1 F L 71 18 143/53 H 10/18/22 09:20 10/18/22 09:20 10/18/22 09:20 10/18/22 09:20 Charges/Coding Procedures Integumentary 150xxx-152xx: 90633 Skin sub graft face/nk/hf/g Debridement Note Debridement Note Wound debrided: medial foot ulcer Laterality: Right Wound Grade/Stage: Stage III Type of Debridement: Excisional debridement Anesthesia Used: 5% Lidocaine Gel Depth: Down to and including healthy tissue and in the subcutaneous layer Percentage of wound debrided: 100 Instrument Used: 3mm curette Tissue Removed: Devitalized tissue and slough Severity: Fat Layer Exposed Amount of bleeding with debridement: Mild Bleeding Controlled with: Compression and gauze Patient tolerated procedure: Patient tolerated procedure well Post-Debridement Measurements and Additional Note: Post-Debridement Measurements/Treatment - Nurse 1 - General Ulcer Assessment Start: 10/18/22 09:20 Freq: Status: Active Protocol: HEMA Activity Type Activity Date Activity User E-sign Co-sign Detail Recorded Client Recorded Date Recorded By Document 10/18/22 09:20 DL [id number] 10/18/22 09:26 DL 10/18/22 09:20 - Today's Visit Information Type of service Follow-up Visit (Physician/VISUAL DESIGNER ) Arrival Mode Ambulatory Transfer Assistance None Patient Identification Verified (Name & Yes ) Patient Requires Transmission-Based No Precautions Finger Stick Blood Sugar(mg/dl) (if didnt check indicated): Blood Sugar Stated by Patient Vital Signs Temperature (97.8 F-99.1 F) 97.1 F L Temperature Source Temporal Pulse Rate (60-100) 71 Pulse Location Monitor Respiratory Rate (12-18) 18 Respiratory rate source Observation Blood Pressure (90/60-120/80) 143/53 H Blood Pressure Mean (mm Hg) 83 Source Monitor History Since Last Visit- (Skip if this is Patient's initial visit) Have you changed medications since your No last visit? Any new allergies or adverse reactions No Had a fall/change in ADL's that may No increase risk of falls Signs or symptoms of abuse and/or No neglect since last visit Have you been in the hospital since your No last visit? Has dressing in place as prescribed Yes Has compression in place as prescribed N/A Has offloadiing in place as prescribed Yes Experienced any changes in pain level or No management Pain Scale: 0-10 Numeric Is Patient Pain Free? Yes WC - Nurse 1 - General Ulcer Measurement Start: 10/18/22 09:20 Freq: Status: Active Protocol: Activity Type Activity Date Activity User E-sign Co-sign Detail Recorded Client Recorded Date Recorded By Document 10/18/22 09:20 DL [id number] 10/18/22 09:26 DL 10/18/22 09:20 Wound Center Nurse 1 #9 Right Inferior Hallux -Current Size (cm) - Length 0.5 -Current Size (cm) - Width 0.5 -Current Size (cm) - Depth 0.2 -Total Square Cm 0.25 -Photo Taken Yes -Exudate Amt Small -Exudate Type Serosanguineous -Wound Margin Thickened -Granulation Amt Small (1-33%) -Granulation Quality [place] -Necrosis Amt Small (1-33%) -Necrotic Tissue Type Adherent Slough -Structure Exposed N/A -Texture (Anna-wound Skin Appearance) Scarring -Moisture (Anna-wound Skin Appearance) Maceration,Dry/ Scaly -Temperature (Anna-wound Skin No Abnormality Appearance) (Pt Warm) -Tenderness on Palpation (Anna-wound No Skin Appearance) -Ulcer Cleansing Soap and Water -Foul Odor after Cleansing No -Anesthetic Used 5% Lidocaine Gel WC - Nurse 2 - General Ulcer CM Notes Start: 10/18/22 09:20 Freq: Status: Active Protocol: Activity Type Activity Date Activity User E-sign Co-sign Detail Recorded Client Recorded Date Recorded By Document 10/18/22 09:35 DORA [id number] 10/18/22 09:42 DORA 10/18/22 09:35 Wound Center Nurse 2 -Time 09:35 -Correct Patient Yes -Correct Side, Site, Position Yes -Correct Procedure Yes -Procedure Performed Yes -Type of Procedure Debridement -Clinical Debridement Subcutaneous -Tissue Removed Subcutaneous -Post Debridement (cm) - Length 0.6 -Post Debridement (cm) - Width 0.7 -Post Debridement (cm) - Depth 0.2 -Total Square (Post) (cm) 0.42 -Area of Debridement (cm) - Length 0.6 -Area of Debridement (cm) - Width 0.7 -Total Square (Area) (cm) 0.42 -Tunneling No -Undermining/Tunneling No -Circular Undermining No -Wound/Ulcer Outcome Not Healed -Ulcer Cleansing Rinsed/ Irrigated with Saline -Foul Odor after Cleansing No -Bioengineered Tissue Yes -Type of Bioengineered Tissue Epifix 18mm Disc -Expiration Date 07/20/27 -Product Lot Number [id number] -Percent Used 100 -Lot number of Saline Used 06/19/2025 -Bleeding Controlled with Pressure -Treatment Response Procedure Tolerated Well -Offloading Yes -Type of Offloading Surgical Shoe -Assistive Device(s) Cane -Debridement - Subq, 1st 20sq cm No -Apply Skin Sub - 1st 25 sq cm - Feet 1 -Epifix 18mm Disc 3 Pain Scale: 0-10 Numeric Is Patient Pain Free? Yes - Nurse 3 - General Ulcer D/C NN Start: 10/18/22 09:20 Freq: Status: Active Protocol: Activity Type Activity Date Activity User E-sign Co-sign Detail Recorded Client Recorded Date Recorded By Document 10/18/22 09:43 DORA [id number] 10/18/22 09:44 DORA 10/18/22 09:43 Wound Care Center Nurse 3 #9 Right Inferior Hallux -Ulcer Cleansing Rinsed/ Irrigated with Saline -Foul Odor after Cleansing No -Primary Dressing Applied Mepilex Border -Primary Dressing Covered/Secured with Dry Gauze -Mepilex Border 1 Pain Scale: 0-10 Numeric Is Patient Pain Free? Yes WC - Visit Discharge Discharge Condition Stable Ambulatory Status Ambulatory,Cane Transportation Private Auto Accompanied by DIL Medication Reconcilliation completed & Yes provided to patient/care provider Clinical Summary of Care Provided Yes Assessment/Plan Assessment/Plan (1) Type 2 diabetes mellitus with diabetic polyneuropathy: CODE(S): E11.42 - Type 2 diabetes mellitus with diabetic polyneuropathy (2) Non-pressure chronic ulcer of other part of right foot with fat layer exposed: CODE(S): L97.512 - Non-pressure chronic ulcer of other part of right foot with fat layer exposed (3) Cough in adult patient: CODE(S): R05.9 - Cough, unspecified (4) Urinary urgency: CODE(S): R39.15 - Urgency of urination (5) Pain with urination: CODE(S): R30.9 - Painful micturition, unspecified (6) History of malignant neoplasm of lung in adulthood: CODE(S): Z85.118 - Personal history of other malignant neoplasm of bronchus and lung (7) Shortness of breath: CODE(S): R06.02 - Shortness of breath PLAN: Plan Patient was evaluated at the wound healing center today.? There is a platau in wound healing, he has been approved for an advanced wound healing product, Epifix to help expedite wound healing. Wound care - Epifix #5 applied today. 100% of the product was used, covered with wound veil and secured with steri strips. Topped with a Mepilex dressing. He is not to get the ulcer wet. If he would need to change his outer dressing over the next week, he was instructed to leave the wound veil in place. Compression - Single tubigrip Off-loading - Suman shoe has been re-adjusted at the foot and ankle clinic. He states it feels better with no pressure on his ulcer. Stressed the importance of off loading and not putting pressure on this portion of his foot. Vascular:? 12/19/21 - Right EULALIA - 1.15, Left EULALIA 1.06.? Right digital 0.74, Left digital 0.71, bilateral triphasic. Venous studies showed bilateral no DVT, Bilateral calf with primary veins with reflux, bilateral SPJ reflux. Wound culture obtained on 07/18/22 positive for Staphylococcus pseudintermediu, he completed Augmentin. Wound culture obtained on 05/18/22 which was positive for Staphylococcus pseudintermediu, Staphylococcus saprophyticus and Anaerobic cocci.? Continue Augmentin. Encouraged high protein diet that is low in carbohydrates and sodium. Follow up one week. Call or come in sooner if develop any questions or concerns. Follow up one week.
--- NOTE | 2022-10-23 15:58 | PN.PCM_ITS ---
History of Present Illness Date of Service: 10/23/22 Chief Complaint: right foot ulcer History of Wound: This 77-year-old male returns to the wound healing clinic for reoccurrence of a right medial foot ulcer. Wound care has been Moistened Cass covered with [place] SAP dressing. Patient diabetic neuropathic. 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 Patient offloading right foot with surgical shoe. Wound culture from 07/18/22 positive for Staphylococcus pseudintermediu, he completed Augmentin. Wound care - Epifix #6 applied today. Patient denies constitutional's or pains at this time. No other complaints. Progress of Wound: Right hallux ulcer is slightly smaller and looks better. Patient states he has been trying to off load. He is wearing a postop shoe. Objective Data Objective Data Vital Signs: Vital Signs Temp Pulse Resp BP 97.1 F L 71 18 143/53 H 10/18/22 09:20 10/18/22 09:20 10/18/22 09:20 10/18/22 09:20 Charges/Coding Procedures Integumentary 150xxx-152xx: [id number] Skin sub graft face/nk/hf/g Debridement Note Debridement Note Wound debrided: medial foot ulcer Laterality: Right Wound Grade/Stage: Stage III Type of Debridement: Excisional debridement Anesthesia Used: 5% Lidocaine Gel Depth: Down to and including healthy tissue and in the subcutaneous layer Percentage of wound debrided: 100 Instrument Used: 3mm curette Tissue Removed: Devitalized tissue and slough Severity: Fat Layer Exposed Amount of bleeding with debridement: Mild Bleeding Controlled with: Compression and gauze Patient tolerated procedure: Patient tolerated procedure well Post-Debridement Measurements and Additional Note: Post-Debridement Measurements/Treatment - Nurse 1 - General Ulcer Assessment Start: 10/18/22 09:20 Freq: Status: Active Protocol: [email or web address] Activity Type Activity Date Activity User E-sign Co-sign Detail Recorded Client Recorded Date Recorded By Document 10/18/22 09:20 DL [id number] 10/18/22 09:26 DL 10/18/22 09:20 - Today's Visit Information Type of service Follow-up Visit (Physician/CLOUD SYSTEMS ADMINISTRATOR ) Arrival Mode Ambulatory Transfer Assistance None Patient Identification Verified (Name & Yes ) Patient Requires Transmission-Based No Precautions Finger Stick Blood Sugar(mg/dl) (if didnt check indicated): Blood Sugar Stated by Patient Vital Signs Temperature (97.8 F-99.1 F) 97.1 F L Temperature Source Temporal Pulse Rate (60-100) 71 Pulse Location Monitor Respiratory Rate (12-18) 18 Respiratory rate source Observation Blood Pressure (90/60-120/80) 143/53 H Blood Pressure Mean (mm Hg) 83 Source Monitor History Since Last Visit- (Skip if this is Patient's initial visit) Have you changed medications since your No last visit? Any new allergies or adverse reactions No Had a fall/change in ADL's that may No increase risk of falls Signs or symptoms of abuse and/or No neglect since last visit Have you been in the hospital since your No last visit? Has dressing in place as prescribed Yes Has compression in place as prescribed N/A Has offloadiing in place as prescribed Yes Experienced any changes in pain level or No management Pain Scale: 0-10 Numeric Is Patient Pain Free? Yes WC - Nurse 1 - General Ulcer Measurement Start: 10/18/22 09:20 Freq: Status: Active Protocol: Activity Type Activity Date Activity User E-sign Co-sign Detail Recorded Client Recorded Date Recorded By Document 10/18/22 09:20 DL [id number] 10/18/22 09:26 DL 10/18/22 09:20 Wound Center Nurse 1 #9 Right Inferior Hallux -Current Size (cm) - Length 0.5 -Current Size (cm) - Width 0.5 -Current Size (cm) - Depth 0.2 -Total Square Cm 0.25 -Photo Taken Yes -Exudate Amt Small -Exudate Type Serosanguineous -Wound Margin Thickened -Granulation Amt Small (1-33%) -Granulation Quality [place] -Necrosis Amt Small (1-33%) -Necrotic Tissue Type Adherent Slough -Structure Exposed N/A -Texture (Anna-wound Skin Appearance) Scarring -Moisture (Anna-wound Skin Appearance) Maceration,Dry/ Scaly -Temperature (Anna-wound Skin No Abnormality Appearance) (Pt Warm) -Tenderness on Palpation (Anna-wound No Skin Appearance) -Ulcer Cleansing Soap and Water -Foul Odor after Cleansing No -Anesthetic Used 5% Lidocaine Gel WC - Nurse 2 - General Ulcer CM Notes Start: 10/18/22 09:20 Freq: Status: Active Protocol: Activity Type Activity Date Activity User E-sign Co-sign Detail Recorded Client Recorded Date Recorded By Document 10/18/22 09:35 [id number] 10/18/22 09:42 Document 10/23/22 13:26 [id number] 10/23/22 13:34 10/18/22 10/23/22 09:35 13:26 Wound Center Nurse 2 #9 Right Inferior Hallux -Time 09:35 13:31 -Correct Patient Yes Yes -Correct Side, Site, Position Yes Yes -Correct Procedure Yes Yes -Procedure Performed Yes Yes -Type of Procedure Debridement Debridement -Clinical Debridement Subcutaneous Subcutaneous -Tissue Removed Subcutaneous Subcutaneous -Post Debridement (cm) - Length 0.6 0.5 -Post Debridement (cm) - Width 0.7 0.5 -Post Debridement (cm) - Depth 0.2 0.2 -Total Square (Post) (cm) 0.42 0.25 -Area of Debridement (cm) - Length 0.6 0.5 -Area of Debridement (cm) - Width 0.7 0.5 -Total Square (Area) (cm) 0.42 0.25 -Tunneling No No -Undermining/Tunneling No No -Circular Undermining No No -Wound/Ulcer Outcome Not Healed Not Healed -Ulcer Cleansing Rinsed/ Rinsed/ Irrigated with Irrigated with Saline Saline -Foul Odor after Cleansing No No -Bioengineered Tissue Yes Yes -Type of Bioengineered Tissue Epifix 18mm Epifix 18mm Disc Disc -Expiration Date 07/20/27 05/20/27 -Product Lot Number [id number] -Percent Used 100 100 -Lot number of Saline Used 06/19/2025 [id number] -Bleeding Controlled with Pressure Pressure -Treatment Response Procedure Procedure Tolerated Well Tolerated Well -Offloading Yes Yes -Type of Offloading Surgical Shoe Surgical Shoe -Assistive Device(s) Cane -Debridement - Subq, 1st 20sq cm No No -Apply Skin Sub - 1st 25 sq cm - Feet 1 1 -Epifix 18mm Disc 3 3 Pain Scale: 0-10 Numeric Is Patient Pain Free? Yes Yes - Nurse 3 - General Ulcer D/C NN Start: 10/18/22 09:20 Freq: Status: Active Protocol: Activity Type Activity Date Activity User E-sign Co-sign Detail Recorded Client Recorded Date Recorded By Document 10/18/22 09:43 [id number] 10/18/22 09:44 Document 10/23/22 13:35 [id number] 10/23/22 13:35 10/18/22 10/23/22 09:43 13:35 Wound Care Center Nurse 3 #9 Right Inferior Hallux -Ulcer Cleansing Rinsed/ Rinsed/ Irrigated with Irrigated with Saline Saline -Foul Odor after Cleansing No No -Primary Dressing Applied Mepilex Border Mepilex Border -Primary Dressing Covered/Secured with Dry Gauze Dry Gauze -Mepilex Border 1 1 Pain Scale: 0-10 Numeric Is Patient Pain Free? Yes Yes WC - Visit Discharge Discharge Condition Stable Stable Ambulatory Status Ambulatory,Cane Ambulatory,Cane Transportation Private Auto Private Auto Accompanied by DIL daughter in law Medication Reconcilliation completed & Yes Yes provided to patient/care provider Clinical Summary of Care Provided Yes Yes Assessment/Plan Assessment/Plan (1) Type 2 diabetes mellitus with diabetic polyneuropathy: CODE(S): E11.42 - Type 2 diabetes mellitus with diabetic polyneuropathy (2) Non-pressure chronic ulcer of other part of right foot with fat layer exposed: CODE(S): L97.512 - Non-pressure chronic ulcer of other part of right foot with fat layer exposed (3) Cough in adult patient: CODE(S): R05.9 - Cough, unspecified (4) Urinary urgency: CODE(S): R39.15 - Urgency of urination (5) Pain with urination: CODE(S): R30.9 - Painful micturition, unspecified (6) History of malignant neoplasm of lung in adulthood: CODE(S): Z85.118 - Personal history of other malignant neoplasm of bronchus and lung (7) Shortness of breath: CODE(S): R06.02 - Shortness of breath PLAN: Plan Patient was evaluated at the wound healing center today.? There is a platau in wound healing, he has been approved for an advanced wound healing product, Epifix to help expedite wound healing. Wound care - Epifix #6 applied today. 100% of the product was used, covered with wound veil and secured with steri strips. Topped with a Mepilex dressing. He is not to get the ulcer wet. If he would need to change his outer dressing over the next week, he was instructed to leave the wound veil in place. Compression - Single tubigrip Off-loading - Suman shoe has been re-adjusted at the foot and ankle clinic. He states it feels better with no pressure on his ulcer. Stressed the importance of off loading and not putting pressure on this portion of his foot. Vascular:? 12/19/21 - Right EULALIA - 1.15, Left EULALIA 1.06.? Right digital 0.74, Left digital 0.71, bilateral triphasic. Venous studies showed bilateral no DVT, Bilateral calf with primary veins with reflux, bilateral SPJ reflux. Wound culture obtained on 07/18/22 positive for Staphylococcus pseudintermediu, he completed Augmentin. Wound culture obtained on 05/18/22 which was positive for Staphylococcus pse udintermediu, Staphylococcus saprophyticus and Anaerobic cocci.? Continue Augmentin. Encouraged high protein diet that is low in carbohydrates and sodium. Follow up one week. Call or come in sooner if develop any questions or concerns. Follow up one week.
[2022-10-30 13:45] VITALS: BP 146/42; PULSE 77; RESP 16; TEMP 36.1
--- NOTE | 2022-10-30 15:40 | PCM.WC.PN ---
History of Present Illness Date of Service: 10/30/22 Chief Complaint: right medial foot ulcer History of Wound: This 77-year-old male returns to the wound healing clinic for reoccurrence of a right medial foot ulcer. Wound care has been Moistened [place] covered with [place] SAP dressing. Patient diabetic neuropathic. 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 Patient offloading right foot with surgical shoe. Wound culture from 07/18/22 positive for Staphylococcus pseudintermediu, he completed Augmentin. Wound care - Epifix #6 applications. Hold Epifix today and will place moistened [place] covered with [place] SAP daily for a week. Patient denies constitutional's or pains at this time. No other complaints. Progress of Wound: Right hallux ulcer has no improvement. Will hold off on epifix this week and try daily dressing changes to see if this will help improve his ulcer. He is wearing a postop shoe. Objective Data Objective Data Vital Signs: Vital Signs Temp Pulse Resp BP O2 Del Method 97 F L 77 16 146/42 H Room Air 10/30/22 13:45 10/30/22 13:45 10/30/22 13:45 10/30/22 13:45 10/30/22 13:45 Oxygen Delivery Method Room Air Charges/Coding Procedures Integumentary 111xxx-113xx: 50439 Mihaela subq tissue 20 sq cm/< Debridement Note Debridement Note Wound debrided: medial foot ulcer Laterality: Right Wound Grade/Stage: Stage III Type of Debridement: Excisional debridement Anesthesia Used: 5% Lidocaine Gel Depth: Down to and including healthy tissue and in the subcutaneous layer Percentage of wound debrided: 100 Instrument Used: 3mm curette Tissue Removed: Devitalized tissue and slough Severity: Fat Layer Exposed Amount of bleeding with debridement: Mild Bleeding Controlled with: Compression and gauze Patient tolerated procedure: Patient tolerated procedure well Post-Debridement Measurements and Additional Note: Post-Debridement Measurements/Treatment WC - Nurse 1 - General Ulcer Assessment Start: 10/18/22 09:20 Freq: Status: Active Protocol: HEMA Activity Type Activity Date Activity User E-sign Co-sign Detail Recorded Client Recorded Date Recorded By Document 10/18/22 09:20 DL [id number] 10/18/22 09:26 DL Document 10/30/22 13:45 BMF [id number] 10/30/22 13:54 BM 10/18/22 10/30/22 09:20 13:45 - Today's Visit Information Type of service Follow-up Visit Follow-up Visit (Physician/MERCHANDISE TEAM MANAGER (Physician/MERCHANDISE TEAM MANAGER ) ) Arrival Mode Ambulatory Ambulatory,Cane Transfer Assistance None None Patient Identification Verified (Name & Yes Yes ) Patient Requires Transmission-Based No No Precautions Finger Stick Blood Sugar(mg/dl) (if didnt check indicated): Blood Sugar Stated by Patient Vital Signs Temperature (97.8 F-99.1 F) 97.1 F L 97 F L Temperature Source Temporal Temporal Pulse Rate (60-100) 71 77 Pulse Location Monitor Monitor Respiratory Rate (12-18) 18 16 Respiratory rate source Observation Observation Oxygen Delivery Method Room Air Blood Pressure (90/60-120/80) 143/53 H 146/42 H Blood Pressure Mean (mm Hg) 83 76 Source Monitor Monitor Position Sitting Blood Pressure Location Left Arm History Since Last Visit- (Skip if this is Patient's initial visit) Have you changed medications since your No No last visit? Any new allergies or adverse reactions No No Had a fall/change in ADL's that may No No increase risk of falls Signs or symptoms of abuse and/or No No neglect since last visit Have you been in the hospital since your No No last visit? Has dressing in place as prescribed Yes Yes Has compression in place as prescribed N/A N/A Has offloadiing in place as prescribed Yes Yes Experienced any changes in pain level or No No management Left Footwear Regular Shoe Right Footwear Surgical Shoe with pressure relief insole Pain Scale: 0-10 Numeric Is Patient Pain Free? Yes Yes - Nurse 1 - General Ulcer Measurement Start: 10/18/22 09:20 Freq: Status: Active Protocol: Activity Type Activity Date Activity User E-sign Co-sign Detail Recorded Client Recorded Date Recorded By Document 10/18/22 09:20 DL [id number] 10/18/22 09:26 DL Document 10/30/22 13:45 [facility] [id number] 10/30/22 13:54 BM 10/18/22 10/30/22 09:20 13:45 Wound Center Nurse 1 #9 Right Inferior Hallux -Combined with other wound No -Current Size (cm) - Length 0.5 0.5 -Current Size (cm) - Width 0.5 0.4 -Current Size (cm) - Depth 0.2 0.1 -Total Square Cm 0.25 0.20 -Date of Last Picture (Recall this 10/30/22 field) -Photo Taken Yes Yes -Epithelialization None Present -Tunneling No -Undermining/Tunneling No -Circular Undermining No -Exudate Amt Small Small -Exudate Type Serosanguineous Serosanguineous -Wound Margin Thickened Distinct, Outline Attached -Granulation Amt Small (1-33%) Medium (34-66%) -Granulation Quality [place] -Slough/Fibrin Yes -Necrosis Amt Small (1-33%) Small (1-33%) -Necrotic Tissue Type Adherent Slough Adherent Slough -Structure Exposed N/A -Texture (Anna-wound Skin Appearance) Scarring Assessed, Scarring -Moisture (Anna-wound Skin Appearance) Maceration,Dry/ Assessed,Dry/ Scaly Scaly -Color (Anna-wound Skin Appearance) Assessed -Temperature (Anna-wound Skin No Abnormality No Abnormality Appearance) (Pt Warm) (Pt Warm) -Tenderness on Palpation (Anna-wound No No Skin Appearance) -Ulcer Cleansing Soap and Water Soap and Water -Foul Odor after Cleansing No No -Anesthetic Used 5% Lidocaine 5% Lidocaine Gel Gel WC - Nurse 2 - General Ulcer CM Notes Start: 10/18/22 09:20 Freq: Status: Active Protocol: Activity Type Activity Date Activity User E-sign Co-sign Detail Recorded Client Recorded Date Recorded By Document 10/18/22 09:35 [id number] 10/18/22 09:42 Document 10/23/22 13:26 [id number] 10/23/22 13:34 Document 10/30/22 14:34 [id number] 10/30/22 14:42 10/18/22 10/23/22 10/30/22 09:35 13:26 14:34 Wound Center Nurse 2 #9 Right Inferior Hallux -Time 09:35 13:31 14:37 -Correct Patient Yes Yes Yes -Correct Side, Site, Position Yes Yes Yes -Correct Procedure Yes Yes Yes -Procedure Performed Yes Yes Yes -Type of Procedure Debridement Debridement Debridement -Clinical Debridement Subcutaneous Subcutaneous Subcutaneous -Tissue Removed Subcutaneous Subcutaneous Subcutaneous -Post Debridement (cm) - Length 0.6 0.5 0.5 -Post Debridement (cm) - Width 0.7 0.5 0.5 -Post Debridement (cm) - Depth 0.2 0.2 0.1 -Total Square (Post) (cm) 0.42 0.25 0.25 -Area of Debridement (cm) - Length 0.6 0.5 0.5 -Area of Debridement (cm) - Width 0.7 0.5 0.5 -Total Square (Area) (cm) 0.42 0.25 0.25 -Tunneling No No No -Undermining/Tunneling No No No -Circular Undermining No No No -Wound/Ulcer Outcome Not Healed Not Healed Not Healed -Ulcer Cleansing Rinsed/ Rinsed/ Rinsed/ Irrigated with Irrigated with Irrigated with Saline Saline Saline -Foul Odor after Cleansing No No -Bioengineered Tissue Yes Yes No -Type of Bioengineered Tissue Epifix 18mm Epifix 18mm Disc Disc -Expiration Date 07/20/27 05/20/27 -Product Lot Number [id number] -Percent Used 100 100 -Lot number of Saline Used 06/19/2025 [id number] -Bleeding Controlled with Pressure Pressure Pressure -Treatment Response Procedure Procedure Procedure Tolerated Well Tolerated Well Tolerated Well -Offloading Yes Yes No -Type of Offloading Surgical Shoe Surgical Shoe -Assistive Device(s) Cane -Debridement - Subq, 1st 20sq cm No No Yes -Apply Skin Sub - 1st 25 sq cm - Feet 1 1 -Epifix 18mm Disc 3 3 Pain Scale: 0-10 Numeric Is Patient Pain Free? Yes Yes Yes - Nurse 3 - General Ulcer D/C NN Start: 10/18/22 09:20 Freq: Status: Active Protocol: Activity Type Activity Date Activity User E-sign Co-sign Detail Recorded Client Recorded Date Recorded By Document 10/18/22 09:43 DORA [id number] 10/18/22 09:44 JF Document 10/23/22 13:35 JF [id number] 10/23/22 13:35 JF Document 10/30/22 14:45 DL [id number] 10/30/22 14:52 DL 10/18/22 10/23/22 10/30/22 09:43 13:35 14:45 Wound Care Center Nurse 3 #9 Right Inferior Hallux -Ulcer Cleansing Rinsed/ Rinsed/ Rinsed/ Irrigated with Irrigated with Irrigated with Saline Saline Saline -Foul Odor after Cleansing No No No -Primary Dressing Applied Mepilex Border Mepilex Border [place], Mepilex Border -Primary Dressing Covered/Secured with Dry Gauze Dry Gauze -Mepilex Border 1 1 1 -[place] 1 Treatment Response Procedure Tolerated Well Pain Scale: 0-10 Numeric Is Patient Pain Free? Yes Yes Yes WC - Visit Discharge Discharge Condition Stable Stable Stable Ambulatory Status Ambulatory,Cane Ambulatory,Cane Ambulatory,Cane Transportation Private Auto Private Auto Accompanied by DIL daughter in law Medication Reconcilliation completed & Yes Yes provided to patient/care provider Clinical Summary of Care Provided Yes Yes Assessment/Plan Assessment/Plan (1) Type 2 diabetes mellitus with diabetic polyneuropathy: CODE(S): E11.42 - Type 2 diabetes mellitus with diabetic polyneuropathy (2) Non-pressure chronic ulcer of other part of right foot with fat layer exposed: CODE(S): L97.512 - Non-pressure chronic ulcer of other part of right foot with fat layer exposed (3) History of malignant neoplasm of lung in adulthood: CODE(S): Z85.118 - Personal history of other malignant neoplasm of bronchus and lung PLAN: Plan Patient was evaluated at the wound healing center today.? There is a platau in wound healing, he has been approved for an advanced wound healing product, Epifix to help expedite wound healing. Wound care - Epifix 6 application have been applied. Since there is no improvement this week in his ulcer, will hold Epifix for a week and apply moistened [place] covered with [place] SAP dressing daily after washing with soap and water. Compression - Single tubigrip Off-loading - Suman shoe has been re-adjusted at the foot and ankle clinic. He states it feels better with no pressure on his ulcer. Stressed the importance of off loading and not putting pressure on this portion of his foot. Vascular:? 12/19/21 - Right EULALIA - 1.15, Left EULALIA 1.06.? Right digital 0.74, Left digital 0.71, bilateral triphasic. Venous studies showed bilateral no DVT, Bilateral calf with primary veins with reflux, bilateral SPJ reflux. Wound culture obtained on 07/18/22 positive for Staphylococcus pseudintermediu, he completed Augmentin. Wound culture obtained on 05/18/22 which was positive for Staphylococcus pseudintermediu, Staphylococcus saprophyticus and Anaerobic cocci.? Continue Augmentin. Encouraged high protein diet that is low in carbohydrates and sodium. Follow up one week. Call or come in sooner if develop any questions or concerns.
[2022-11-08 09:52] VITALS: BP 134/71; PULSE 75; RESP 20; TEMP 36.3
--- NOTE | 2022-11-08 14:26 | PCM.WC.PN ---
History of Present Illness Date of Service: 11/08/22 Chief Complaint: right medial foot ulcer History of Wound: This 77-year-old male returns to the wound healing clinic for reoccurrence of a right medial foot ulcer. Wound care has been Moistened Cass covered with [place] SAP dressing. Patient diabetic neuropathic. 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 Patient offloading right foot with surgical shoe. Wound culture from 07/18/22 positive for Staphylococcus pseudintermediu, he completed Augmentin. Wound care - Epifix #7 placed today. Patient denies constitutional's or pains at this time. No other complaints. Progress of Wound: Right hallux ulcer has no improvement this week. He has increased callus surrounding the ulcer. I think he is not off loading as he should. Will reapply epifix this week. He is wearing a postop shoe but my concern it it may be rubbing causing irritation to this area. Objective Data Objective Data Vital Signs: Vital Signs Temp Pulse Resp BP O2 Del Method 97.3 F L 75 20 H 134/71 H Room Air 11/08/22 09:52 11/08/22 09:52 11/08/22 09:52 11/08/22 09:52 10/30/22 13:45 Oxygen Delivery Method Room Air Charges/Coding Procedures Integumentary 150xxx-152xx: 50155 Skin sub graft face/nk/hf/g Debridement Note Debridement Note Wound debrided: medial foot ulcer Laterality: Right Wound Grade/Stage: Stage III Type of Debridement: Excisional debridement Anesthesia Used: 5% Lidocaine Gel Depth: Down to and including healthy tissue and in the subcutaneous layer Percentage of wound debrided: 100 Instrument Used: 3mm curette and #15 blade Tissue Removed: Devitalized tissue and slough Severity: Fat Layer Exposed Amount of bleeding with debridement: Mild Bleeding Controlled with: Compression and gauze Patient tolerated procedure: Patient tolerated procedure well Post-Debridement Measurements and Additional Note: Post-Debridement Measurements/Treatment WC - Nurse 1 - General Ulcer Assessment Start: 10/18/22 09:20 Freq: Status: Active Protocol: HEMA Activity Type Activity Date Activity User E-sign Co-sign Detail Recorded Client Recorded Date Recorded By Document 10/18/22 09:20 DL [id number] 03/01/23 09:26 DL Document 10/30/22 13:45 [facility] [id number] 10/30/22 13:54 BMF Document 11/08/22 09:52 DL Desktop 11/08/22 09:57 DL 10/18/22 10/30/22 11/08/22 09:20 13:45 09:52 - Today's Visit Information Type of service Follow-up Visit Follow-up Visit Follow-up Visit (Physician/BROADCAST OPERATIONS DIRECTOR (Physician/BROADCAST OPERATIONS DIRECTOR (Physician/BROADCAST OPERATIONS DIRECTOR ) ) ) Arrival Mode Ambulatory Ambulatory,Cane Ambulatory,Cane Transfer Assistance None None None Patient Identification Verified (Name & Yes Yes Yes ) Patient Requires Transmission-Based No No No Precautions Finger Stick Blood Sugar(mg/dl) (if didnt check 97 indicated): Blood Sugar Stated by Stated by Patient Patient Vital Signs Temperature (97.8 F-99.1 F) 97.1 F L 97 F L 97.3 F L Temperature Source Temporal Temporal Temporal Pulse Rate (60-100) 71 77 75 Pulse Location Monitor Monitor Monitor Respiratory Rate (12-18) 18 16 20 H Respiratory rate source Observation Observation Observation Oxygen Delivery Method Room Air Blood Pressure (90/60-120/80) 143/53 H 146/42 H 134/71 H Blood Pressure Mean (mm Hg) 83 76 92 Source Monitor Monitor Monitor Position Sitting Blood Pressure Location Left Arm History Since Last Visit- (Skip if this is Patient's initial visit) Have you changed medications since your No No No last visit? Any new allergies or adverse reactions No No No Had a fall/change in ADL's that may No No No increase risk of falls Signs or symptoms of abuse and/or No No No neglect since last visit Have you been in the hospital since your No No No last visit? Has dressing in place as prescribed Yes Yes Yes Has compression in place as prescribed N/A N/A Yes Has offloadiing in place as prescribed Yes Yes Yes Experienced any changes in pain level or No No No management Left Footwear Regular Shoe Right Footwear Surgical Shoe Surgical Shoe with pressure with pressure relief insole relief insole Pain Scale: 0-10 Numeric Is Patient Pain Free? Yes Yes Yes - Nurse 1 - General Ulcer Measurement Start: 10/18/22 09:20 Freq: Status: Active Protocol: Activity Type Activity Date Activity User E-sign Co-sign Detail Recorded Client Recorded Date Recorded By Document 10/18/22 09:20 DL [id number] 10/18/22 09:26 DL Document 10/30/22 13:45 [facility] [id number] 10/30/22 13:54 BMF Document 11/08/22 09:52 DL Desktop 11/08/22 09:57 DL 10/18/22 10/30/22 11/08/22 09:20 13:45 09:52 Wound Center Nurse 1 #9 Right Inferior Hallux -Combined with other wound No -Current Size (cm) - Length 0.5 0.5 0.5 -Current Size (cm) - Width 0.5 0.4 0.5 -Current Size (cm) - Depth 0.2 0.1 0.2 -Total Square Cm 0.25 0.20 0.25 -Date of Last Picture (Recall this 10/30/22 field) -Photo Taken Yes Yes Yes -Epithelialization None Present -Tunneling No -Undermining/Tunneling No -Circular Undermining No -Exudate Amt Small Small Medium -Exudate Type Serosanguineous Serosanguineous Serosanguineous -Wound Margin Thickened Distinct, Thickened Outline Attached -Granulation Amt Small (1-33%) Medium (34-66%) Small (1-33%) -Granulation Quality [place] -Slough/Fibrin Yes -Necrosis Amt Small (1-33%) Small (1-33%) Small (1-33%) -Necrotic Tissue Type Adherent Slough Adherent Slough Adherent Slough -Structure Exposed N/A N/A -Texture (Anna-wound Skin Appearance) Scarring Assessed, Scarring Scarring -Moisture (Anna-wound Skin Appearance) Maceration,Dry/ Assessed,Dry/ Maceration Scaly Scaly -Color (Anna-wound Skin Appearance) Assessed No Abnormality -Temperature (Anna-wound Skin No Abnormality No Abnormality No Abnormality Appearance) (Pt Warm) (Pt Warm) (Pt Warm) -Tenderness on Palpation (Anna-wound No No No Skin Appearance) -Ulcer Cleansing Soap and Water Soap and Water Soap and Water -Foul Odor after Cleansing No No No -Anesthetic Used 5% Lidocaine 5% Lidocaine 5% Lidocaine Gel Gel Gel WC - Nurse 2 - General Ulcer CM Notes Start: 10/18/22 09:20 Freq: Status: Active Protocol: Activity Type Activity Date Activity User E-sign Co-sign Detail Recorded Client Recorded Date Recorded By Document 10/18/22 09:35 [id number] 10/18/22 09:42 Document 10/23/22 13:26 [id number] 10/23/22 13:34 Document 10/30/22 14:34 [id number] 10/30/22 14:42 Document 11/08/22 10:32 [id number] 11/08/22 10:39 10/18/22 10/23/22 10/30/22 09:35 13:26 14:34 Wound Center Nurse 2 #9 Right Inferior Hallux -Time 09:35 13:31 14:37 -Correct Patient Yes Yes Yes -Correct Side, Site, Position Yes Yes Yes -Correct Procedure Yes Yes Yes -Procedure Performed Yes Yes Yes -Type of Procedure Debridement Debridement Debridement -Clinical Debridement Subcutaneous Subcutaneous Subcutaneous -Tissue Removed Subcutaneous Subcutaneous Subcutaneous -Post Debridement (cm) - Length 0.6 0.5 0.5 -Post Debridement (cm) - Width 0.7 0.5 0.5 -Post Debridement (cm) - Depth 0.2 0.2 0.1 -Total Square (Post) (cm) 0.42 0.25 0.25 -Area of Debridement (cm) - Length 0.6 0.5 0.5 -Area of Debridement (cm) - Width 0.7 0.5 0.5 -Total Square (Area) (cm) 0.42 0.25 0.25 -Tunneling No No No -Undermining/Tunneling No No No -Circular Undermining No No No -Wound/Ulcer Outcome Not Healed Not Healed Not Healed -Ulcer Cleansing Rinsed/ Rinsed/ Rinsed/ Irrigated with Irrigated with Irrigated with Saline Saline Saline -Foul Odor after Cleansing No No -Bioengineered Tissue Yes Yes No -Type of Bioengineered Tissue Epifix 18mm Epifix 18mm Disc Disc -Expiration Date 07/20/27 05/20/27 -Product Lot Number [id number] -Percent Used 100 100 -Lot number of Saline Used 06/19/2025 [id number] -Bleeding Controlled with Pressure Pressure Pressure -Treatment Response Procedure Procedure Procedure Tolerated Well Tolerated Well Tolerated Well -Offloading Yes Yes No -Type of Offloading Surgical Shoe Surgical Shoe -Assistive Device(s) Cane -Debridement - Subq, 1st 20sq cm No No Yes -Apply Skin Sub - 1st 25 sq cm - Feet 1 1 -Epifix 18mm Disc 3 3 Pain Scale: 0-10 Numeric Is Patient Pain Free? Yes Yes Yes 11/08/22 10:32 Wound Center Nurse 2 #9 Right Inferior Hallux -Time 10:32 -Correct Patient Yes -Correct Side, Site, Position Yes -Correct Procedure Yes -Procedure Performed Yes -Type of Procedure Debridement -Clinical Debridement Subcutaneous -Tissue Removed Subcutaneous -Post Debridement (cm) - Length 0.7 -Post Debridement (cm) - Width 0.7 -Post Debridement (cm) - Depth 0.2 -Total Square (Post) (cm) 0.49 -Area of Debridement (cm) - Length 0.7 -Area of Debridement (cm) - Width 0.7 -Total Square (Area) (cm) 0.49 -Tunneling No -Undermining/Tunneling No -Circular Undermining No -Wound/Ulcer Outcome Not Healed -Ulcer Cleansing Rinsed/ Irrigated with Saline -Foul Odor after Cleansing No -Bioengineered Tissue Yes -Type of Bioengineered Tissue Epifix 18mm Disc -Expiration Date 08/20/27 -Product Lot Number [id number] -Percent Used 100 -Lot number of Saline Used [id number] -Bleeding Controlled with Pressure -Treatment Response Procedure Tolerated Well -Offloading Yes -Type of Offloading Surgical Shoe -Assistive Device(s) -Debridement - Subq, 1st 20sq cm No -Apply Skin Sub - 1st 25 sq cm - Feet 1 -Epifix 18mm Disc 3 Pain Scale: 0-10 Numeric Is Patient Pain Free? Yes - Nurse 3 - General Ulcer D/C NN Start: 10/18/22 09:20 Freq: Status: Active Protocol: Activity Type Activity Date Activity User E-sign Co-sign Detail Recorded Client Recorded Date Recorded By Document 10/18/22 09:43 DORA [id number] 10/18/22 09:44 JF Document 10/23/22 13:35 DORA [id number] 10/23/22 13:35 JF Document 10/30/22 14:45 DL [id number] 10/30/22 14:52 DL Document 11/08/22 10:53 RB [id number] 11/08/22 10:54 RB 10/18/22 10/23/22 10/30/22 09:43 13:35 14:45 Wound Care Center Nurse 3 #9 Right Inferior Hallux -Ulcer Cleansing Rinsed/ Rinsed/ Rinsed/ Irrigated with Irrigated with Irrigated with Saline Saline Saline -Foul Odor after Cleansing No No No -Primary Dressing Applied Mepilex Border Mepilex Border [place], Mepilex Border -Other Dressing -Primary Dressing Covered/Secured with Dry Gauze Dry Gauze -Mepilex Border 1 1 1 -[place] 1 Treatment Response Procedure Tolerated Well Pain Scale: 0-10 Numeric Is Patient Pain Free? Yes Yes Yes WC - Visit Discharge Discharge Condition Stable Stable Stable Ambulatory Status Ambulatory,Cane Ambulatory,Cane Ambulatory,Cane Transportation Private Auto Private Auto Accompanied by DIL daughter in law Medication Reconcilliation completed & Yes Yes provided to patient/care provider Clinical Summary of Care Provided Yes Yes 11/08/22 10:53 Wound Care Center Nurse 3 #9 Right Inferior Hallux -Ulcer Cleansing -Foul Odor after Cleansing -Primary Dressing Applied Mepilex Border -Other Dressing donut foam applied over mepilex border -Primary Dressing Covered/Secured with -Mepilex Border 1 -[place] Treatment Response Procedure Tolerated Well Pain Scale: 0-10 Numeric Is Patient Pain Free? Yes WC - Visit Discharge Discharge Condition Stable Ambulatory Status Ambulatory Transportation Private Auto Accompanied by Medication Reconcilliation completed & No provided to patient/care provider Clinical Summary of Care Provided Yes Assessment/Plan Assessment/Plan (1) Type 2 diabetes mellitus with diabetic polyneuropathy: CODE(S): E11.42 - Type 2 diabetes mellitus with diabetic polyneuropathy (2) Non-pressure chronic ulcer of other part of right foot with fat layer exposed: CODE(S): L97.512 - Non-pressure chronic ulcer of other part of right foot with fat layer exposed (3) History of malignant neoplasm of lung in adulthood: CODE(S): Z85.118 - Personal history of other malignant neoplasm of bronchus and lung PLAN: Plan Patient was evaluated at the wound healing center today.? There is a platau in wound healing, he has been approved for an advanced wound healing product, Epifix to help expedite wound healing. Wound care - Epifix 7 applied today. 100% of the product was used, covered with wound veil and secured with steri strips.? Topped with a Mepilex dressing.? He is not to get the ulcer wet. If he would need to change his outer dressing over the next week, he was instructed to leave the wound veil in place. Compression - Single tubigrip Off-loading - Suman shoe has been re-adjusted at the foot and ankle clinic. He states it feels better with no pressure on his ulcer. Will place a pad with the ulcer cut out to see if this will his pressure. Stressed the importance of off loading and not putting pressure on this portion of his foot. Vascular:? 12/19/21 - Right EULALIA - 1.15, Left EULALIA 1.06.? Right digital 0.74, Left digital 0.71, bilateral triphasic. Venous studies showed bilateral no DVT, Bilateral calf with primary veins with reflux, bilateral SPJ reflux. Wound culture obtained on 07/18/22 positive for Staphylococcus pseudintermediu, he completed Augmentin. Wound culture obtained on 05/18/22 which was positive for Staphylococcus pseudintermediu, Staphylococcus saprophyticus and Anaerobic cocci.? Continue Augmentin. Encouraged high protein diet that is low in carbohydrates and sodium. Follow up one week. Call or come in sooner if develop any questions or concerns.
[2022-11-16 13:13] VITALS: BP 125/49; PULSE 82; RESP 16
== END 2022-11-17 23:59 | disposition home or self-care (01) ==
LOC: WC 09:45
PROVIDERS: PCP Family Medicine; Visit Provider Nurse Practitioner Family
DX: E11.621 Type 2 diabetes mellitus with foot ulcer (principal); L97.512 Non-pressure chronic ulcer of other part of right foot with fat layer exposed; E11.42 Type 2 diabetes mellitus with diabetic polyneuropathy; R05.9 Cough, unspecified; R39.15 Urgency of urination; R30.9 Painful micturition, unspecified; Z85.118 Personal history of other malignant neoplasm of bronchus and lung; R06.02 Shortness of breath
CPT/HCPCS: 11042; 15275; 99213; Q4186; G0463

== ENCOUNTER 2022-12-11 13:00 | Outpatient (RCR) | payer MEDICARE, OTHER, SELFPAY ==
[2022-11-18 01:34] VITALS: BP 125/49; PULSE 82; RESP 16; TEMP 36.3
[2022-11-20 14:43] VITALS: BP 154/77; PULSE 111; RESP 20; TEMP 36.2
--- NOTE | 2022-11-20 16:18 | PCM.WC.PN ---
History of Present Illness Date of Service: 11/20/22 Chief Complaint: right medial foot ulcer History of Wound: This 77-year-old male returns to the wound healing clinic for reoccurrence of a right medial foot ulcer. Wound care has been Moistened [place] covered with [place] SAP dressing. Patient diabetic neuropathic. 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 Patient offloading right foot with surgical shoe. Wound culture from 07/18/22 positive for Staphylococcus pseudintermediu, he completed Augmentin. Wound care - Epifix #8 placed today. Patient denies constitutional's or pains at this time. No other complaints. Progress of Wound: Right hallux ulcer has gotten smaller this week placing AMD Foam, doubled stack to help prevent pressure on the ulcer. Getting the pressure off his ulcer has really helped and there is not the callus surrounding the ulcer that he typically has. Objective Data Objective Data Vital Signs: Vital Signs Temp Pulse Resp BP 97.1 F L 111 H 20 H 154/77 H 11/20/22 14:43 11/20/22 14:43 11/20/22 14:43 11/20/22 14:43 Charges/Coding Procedures Integumentary 150xxx-152xx: 95992 Skin sub graft face/nk/hf/g Debridement Note Debridement Note Wound debrided: medial foot ulcer Laterality: Right Wound Grade/Stage: Stage III Type of Debridement: Excisional debridement Anesthesia Used: 5% Lidocaine Gel Depth: Down to and including healthy tissue and in the subcutaneous layer Percentage of wound debrided: 100 Instrument Used: 3mm curette Tissue Removed: Devitalized tissue and slough Severity: Fat Layer Exposed Amount of bleeding with debridement: Mild Bleeding Controlled with: Compression and gauze Patient tolerated procedure: Patient tolerated procedure well Post-Debridement Measurements and Additional Note: Post-Debridement Measurements/Treatment URBAN - Nurse 1 - General Ulcer Assessment Start: 11/20/22 14:43 Freq: Status: Active Protocol: HEMA Activity Type Activity Date Activity User E-sign Co-sign Detail Recorded Client Recorded Date Recorded By Document 11/20/22 14:43 DL [id number] 11/20/22 14:49 DL 11/20/22 14:43 - Today's Visit Information Type of service Follow-up Visit (Physician/SIEBEL SOLUTION ARCHITECT ) Arrival Mode Ambulatory,Cane Transfer Assistance None Patient Identification Verified (Name & Yes ) Patient Requires Transmission-Based No Precautions Finger Stick Blood Sugar(mg/dl) (if 157 indicated): Blood Sugar Stated by Patient Vital Signs Temperature (97.8 F-99.1 F) 97.1 F L Temperature Source Temporal Pulse Rate (60-100) 111 H Pulse Location Monitor Respiratory Rate (12-18) 20 H Respiratory rate source Observation Blood Pressure (90/60-120/80) 154/77 H Blood Pressure Mean (mm Hg) 102 Source Monitor History Since Last Visit- (Skip if this is Patient's initial visit) Have you changed medications since your No last visit? Any new allergies or adverse reactions No Had a fall/change in ADL's that may No increase risk of falls Signs or symptoms of abuse and/or No neglect since last visit Have you been in the hospital since your No last visit? Has compression in place as prescribed Yes Has offloadiing in place as prescribed Yes Experienced any changes in pain level or No management Right Footwear Surgical Shoe with pressure relief insole Pain Scale: 0-10 Numeric Is Patient Pain Free? Yes WC - Nurse 1 - General Ulcer Measurement Start: 11/20/22 14:43 Freq: Status: Active Protocol: Activity Type Activity Date Activity User E-sign Co-sign Detail Recorded Client Recorded Date Recorded By Document 11/20/22 14:43 DL [id number] 11/20/22 14:49 DL 11/20/22 14:43 Wound Center Nurse 1 #9 Right Inferior Hallux -Current Size (cm) - Length 0.2 -Current Size (cm) - Width 0.3 -Current Size (cm) - Depth 0.2 -Total Square Cm 0.06 -Photo Taken No -Exudate Amt Small -Exudate Type Serosanguineous -Wound Margin Thickened -Granulation Amt Small (1-33%) -Granulation Quality [place] -Necrosis Amt Small (1-33%) -Necrotic Tissue Type Adherent Slough -Structure Exposed N/A -Texture (Anna-wound Skin Appearance) Callus,Scarring -Moisture (Anna-wound Skin Appearance) No Abnormality -Color (Anna-wound Skin Appearance) No Abnormality -Temperature (Anna-wound Skin No Abnormality Appearance) (Pt Warm) -Tenderness on Palpation (Anna-wound No Skin Appearance) -Ulcer Cleansing Rinsed/ Irrigated with Saline -Foul Odor after Cleansing No -Anesthetic Used 5% Lidocaine Gel WC - Nurse 2 - General Ulcer CM Notes Start: 11/20/22 14:43 Freq: Status: Active Protocol: Activity Type Activity Date Activity User E-sign Co-sign Detail Recorded Client Recorded Date Recorded By Document 11/20/22 15:00 DORA [id number] 11/20/22 15:09 JF Edit Result 11/20/22 15:00 JF (1) [id number] 11/20/22 15:18 JF Edit Result 11/20/22 15:00 JF (2) [id number] 11/20/22 15:20 JF (1) #9 Right Inferior Hallux - Post Debridement (cm) - Length => 0.4 - Post Debridement (cm) - Width => 0.5 - Post Debridement (cm) - Depth => 0.2 - Total Square (Post) (cm) => 0.20 - Area of Debridement (cm) - Length => 0.4 - Area of Debridement (cm) - Width => 0.5 - Total Square (Area) (cm) => 0.20 - Bioengineered Tissue No => Yes - Type of Bioengineered Tissue => Epifix 18mm Disc - Debridement - Subq, 1st 20sq cm Yes => No - Apply Skin Sub - 1st 25 sq cm - Feet => 1 - Epifix 18mm Disc => 3 (2) #9 Right Inferior Hallux - Expiration Date => 08/20/27 - Product Lot Number => [id number] - Percent Used => 100 - Lot number of Saline Used => [id number] 11/20/22 15:00 Wound Center Nurse 2 -Time 15:02 -Correct Patient Yes -Correct Side, Site, Position Yes -Correct Procedure Yes -Procedure Performed Yes -Type of Procedure Debridement -Clinical Debridement Subcutaneous -Tissue Removed Subcutaneous -Post Debridement (cm) - Length 0.4 -Post Debridement (cm) - Width 0.5 -Post Debridement (cm) - Depth 0.2 -Total Square (Post) (cm) 0.20 -Area of Debridement (cm) - Length 0.4 -Area of Debridement (cm) - Width 0.5 -Total Square (Area) (cm) 0.20 -Tunneling No -Undermining/Tunneling No -Circular Undermining No -Wound/Ulcer Outcome Not Healed -Ulcer Cleansing Rinsed/ Irrigated with Saline -Foul Odor after Cleansing No -Bioengineered Tissue Yes -Type of Bioengineered Tissue Epifix 18mm Disc -Expiration Date 08/20/27 -Product Lot Number [id number] -Percent Used 100 -Lot number of Saline Used [id number] -Bleeding Controlled with Pressure -Treatment Response Procedure Tolerated Well -Offloading Yes -Type of Offloading Surgical Shoe -Debridement - Subq, 1st 20sq cm No -Apply Skin Sub - 1st 25 sq cm - Feet 1 -Epifix 18mm Disc 3 Pain Scale: 0-10 Numeric Is Patient Pain Free? Yes - Nurse 3 - General Ulcer D/C NN Start: 11/20/22 14:43 Freq: Status: Active Protocol: Activity Type Activity Date Activity User E-sign Co-sign Detail Recorded Client Recorded Date Recorded By Document 11/20/22 15:35 DL [id number] 11/20/22 15:36 DL 11/20/22 15:35 Wound Care Center Nurse 3 #9 Right Inferior Hallux -Foul Odor after Cleansing No -Other Dressing Epifix -Primary Dressing Covered/Secured with Dry Gauze & Roll Gauze, Secured with Tape -Other Covering foam padding Treatment Response Procedure Tolerated Well Pain Scale: 0-10 Numeric Is Patient Pain Free? Yes - Visit Discharge Discharge Condition Stable Ambulatory Status Ambulatory,Cane Transportation Private Auto Accompanied by family Assessment/Plan Assessment/Plan (1) Type 2 diabetes mellitus with diabetic polyneuropathy: CODE(S): E11.42 - Type 2 diabetes mellitus with diabetic polyneuropathy (2) Non-pressure chronic ulcer of other part of right foot with fat layer exposed: CODE(S): L97.512 - Non-pressure chronic ulcer of other part of right foot with fat layer exposed (3) History of malignant neoplasm of lung in adulthood: CODE(S): Z85.118 - Personal history of other malignant neoplasm of bronchus and lung PLAN: Plan Patient was evaluated at the wound healing center today.? There is a platau in wound healing, he has been approved for an advanced wound healing product, Epifix to help expedite wound healing. Wound care - Epifix #8 applied today. 100% of the product was used, covered with wound veil and secured with steri strips.? Topped with a Mepilex dressing.? He is not to get the ulcer wet. If he would need to change his outer dressing over the next week, he was instructed to leave the wound veil in place. Compression - Single tubigrip Off-loading - Suman shoe has been re-adjusted at the foot and ankle clinic. Also placing the double stacked AMD foam to help prevent pressure on his foot. Stressed the importance of off loading and not putting pressure on this portion of his foot. Vascular:? 12/19/21 - Right EULALIA - 1.15, Left EULALIA 1.06.? Right digital 0.74, Left digital 0.71, bilateral triphasic. Venous studies showed bilateral no DVT, Bilateral calf with primary veins with reflux, bilateral SPJ reflux. Wound culture obtained on 07/18/22 positive for Staphylococcus pseudintermediu, he completed Augmentin. Wound culture obtained on 05/18/22 which was positive for Staphylococcus pseudintermediu, Staphylococcus saprophyticus and Anaerobic cocci.? Continue Augmentin. Encouraged high protein diet that is low in carbohydrates and sodium. Follow up one week. Call or come in sooner if develop any questions or concerns.
[2022-11-27 14:25] VITALS: BP 138/61; PULSE 108; TEMP 36.4
--- NOTE | 2022-11-27 15:13 | PCM.WC.PN ---
History of Present Illness Date of Service: 11/27/22 Chief Complaint: right medial foot ulcer History of Wound: This 77-year-old male returns to the wound healing clinic for reoccurrence of a right medial foot ulcer. Wound care has been Moistened [place] covered with [place] SAP dressing. Patient diabetic neuropathic. 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 Patient offloading right foot with surgical shoe. Wound culture from 07/18/22 positive for Staphylococcus pseudintermediu, he completed Augmentin. Wound care - Epifix #8 placed today. Patient denies constitutional's or pains at this time. No other complaints. Progress of Wound: Right hallux ulcer has gotten smaller this week placing AMD Foam, doubled stack to help prevent pressure on the ulcer. Getting the pressure off his ulcer has really helped and there is not the callus surrounding the ulcer that he typically has. Objective Data Objective Data Vital Signs: Vital Signs Temp Pulse Resp BP 97.6 F L 108 H 20 H 138/61 H 11/27/22 14:25 11/27/22 14:25 11/20/22 14:43 11/27/22 14:25 Charges/Coding Procedures Integumentary 150xxx-152xx: 33167 Skin sub graft face/nk/hf/g Debridement Note Debridement Note Wound debrided: medial foot ulcer Laterality: Right Wound Grade/Stage: Stage III Type of Debridement: Excisional debridement Anesthesia Used: 5% Lidocaine Gel Depth: Down to and including healthy tissue and in the subcutaneous layer Percentage of wound debrided: 100 Instrument Used: 3mm curette Tissue Removed: Devitalized tissue and slough Severity: Fat Layer Exposed Amount of bleeding with debridement: Mild Bleeding Controlled with: Compression and gauze Patient tolerated procedure: Patient tolerated procedure well Post-Debridement Measurements and Additional Note: Post-Debridement Measurements/Treatment URBAN - Nurse 1 - General Ulcer Assessment Start: 11/20/22 14:43 Freq: Status: Active Protocol: HEMA Activity Type Activity Date Activity User E-sign Co-sign Detail Recorded Client Recorded Date Recorded By Document 11/20/22 14:43 DL [id number] 11/20/22 14:49 DL Document 11/27/22 14:25 BMF [id number] 11/27/22 14:27 BMF 11/20/22 11/27/22 14:43 14:25 - Today's Visit Information Type of service Follow-up Visit Follow-up Visit (Physician/WIRELESS CONSULTANT (Physician/WIRELESS CONSULTANT ) ) Arrival Mode Ambulatory,Cane Ambulatory Transfer Assistance None None Accompanied by yany in law Patient Identification Verified (Name & Yes Yes ) Patient Requires Transmission-Based No No Precautions Finger Stick Blood Sugar(mg/dl) (if 157 indicated): Blood Sugar Stated by Patient Vital Signs Temperature (97.8 F-99.1 F) 97.1 F L 97.6 F L Temperature Source Temporal Temporal Pulse Rate (60-100) 111 H 108 H Pulse Location Monitor Monitor Respiratory Rate (12-18) 20 H Respiratory rate source Observation Blood Pressure (90/60-120/80) 154/77 H 138/61 H Blood Pressure Mean (mm Hg) 102 86 Source Monitor Monitor Position Sitting Blood Pressure Location Left Arm History Since Last Visit- (Skip if this is Patient's initial visit) Have you changed medications since your No No last visit? Any new allergies or adverse reactions No No Had a fall/change in ADL's that may No No increase risk of falls Signs or symptoms of abuse and/or No No neglect since last visit Have you been in the hospital since your No No last visit? Has dressing in place as prescribed Yes Has compression in place as prescribed Yes N/A Has offloadiing in place as prescribed Yes Yes Experienced any changes in pain level or No No management Left Footwear Diabetic Shoe Right Footwear Surgical Shoe Surgical Shoe with pressure with pressure relief insole relief insole Pain Scale: 0-10 Numeric Is Patient Pain Free? Yes Yes - Nurse 1 - General Ulcer Measurement Start: 11/20/22 14:43 Freq: Status: Active Protocol: Activity Type Activity Date Activity User E-sign Co-sign Detail Recorded Client Recorded Date Recorded By Document 11/20/22 14:43 DL [id number] 11/20/22 14:49 DL Document 11/27/22 14:25 BM [id number] 11/27/22 14:27 BMF 11/20/22 11/27/22 14:43 14:25 Wound Center Nurse 1 #9 Right Inferior Hallux -Combined with other wound No -Current Size (cm) - Length 0.2 0.1 -Current Size (cm) - Width 0.3 0.1 -Current Size (cm) - Depth 0.2 0.1 -Total Square Cm 0.06 0.01 -Date of Last Picture (Recall this 11/27/22 field) -Photo Taken No Yes -Epithelialization Large 67-100% -Tunneling No -Undermining/Tunneling No -Circular Undermining No -Exudate Amt Small None Present -Exudate Type Serosanguineous -Wound Margin Thickened -Granulation Amt Small (1-33%) -Granulation Quality [place] -Necrosis Amt Small (1-33%) -Necrotic Tissue Type Adherent Slough -Structure Exposed N/A -Texture (Anna-wound Skin Appearance) Callus,Scarring Assessed, Scarring -Moisture (Anna-wound Skin Appearance) No Abnormality Assessed,Dry/ Scaly -Color (Anna-wound Skin Appearance) No Abnormality Assessed -Temperature (Anna-wound Skin No Abnormality No Abnormality Appearance) (Pt Warm) (Pt Warm) -Tenderness on Palpation (Anna-wound No No Skin Appearance) -Ulcer Cleansing Rinsed/ Soap and Water Irrigated with Saline -Foul Odor after Cleansing No No -Anesthetic Used 5% Lidocaine 5% Lidocaine Gel Gel WC - Nurse 2 - General Ulcer CM Notes Start: 11/20/22 14:43 Freq: Status: Active Protocol: Activity Type Activity Date Activity User E-sign Co-sign Detail Recorded Client Recorded Date Recorded By Document 11/20/22 15:00 [id number] 11/20/22 15:09 Edit Result 11/20/22 15:00 JF (1) [id number] 11/20/22 15:18 JF Edit Result 11/20/22 15:00 JF (2) [id number] 11/20/22 15:20 JF Document 11/27/22 14:50 [id number] 11/27/22 15:02 JF (1) #9 Right Inferior Hallux - Post Debridement (cm) - Length => 0.4 - Post Debridement (cm) - Width => 0.5 - Post Debridement (cm) - Depth => 0.2 - Total Square (Post) (cm) => 0.20 - Area of Debridement (cm) - Length => 0.4 - Area of Debridement (cm) - Width => 0.5 - Total Square (Area) (cm) => 0.20 - Bioengineered Tissue No => Yes - Type of Bioengineered Tissue => Epifix 18mm Disc - Debridement - Subq, 1st 20sq cm Yes => No - Apply Skin Sub - 1st 25 sq cm - Feet => 1 - Epifix 18mm Disc => 3 (2) #9 Right Inferior Hallux - Expiration Date => 08/20/27 - Product Lot Number => [id number] - Percent Used => 100 - Lot number of Saline Used => [id number] 11/20/22 11/27/22 15:00 14:50 Wound Center Nurse 2 #9 Right Inferior Hallux -Time 15:02 14:54 -Correct Patient Yes Yes -Correct Side, Site, Position Yes Yes -Correct Procedure Yes Yes -Procedure Performed Yes Yes -Type of Procedure Debridement Debridement -Clinical Debridement Subcutaneous Subcutaneous -Tissue Removed Subcutaneous Subcutaneous -Post Debridement (cm) - Length 0.4 0.3 -Post Debridement (cm) - Width 0.5 0.4 -Post Debridement (cm) - Depth 0.2 0.2 -Total Square (Post) (cm) 0.20 0.12 -Area of Debridement (cm) - Length 0.4 0.3 -Area of Debridement (cm) - Width 0.5 0.4 -Total Square (Area) (cm) 0.20 0.12 -Tunneling No No -Undermining/Tunneling No No -Circular Undermining No No -Wound/Ulcer Outcome Not Healed Not Healed -Ulcer Cleansing Rinsed/ Rinsed/ Irrigated with Irrigated with Saline Saline -Foul Odor after Cleansing No No -Bioengineered Tissue Yes Yes -Type of Bioengineered Tissue Epifix 18mm Epifix 18mm Disc Disc -Expiration Date 08/20/27 08/20/27 -Product Lot Number [id number] -Percent Used 100 100 -Lot number of Saline Used [id number] -Bleeding Controlled with Pressure Pressure -Treatment Response Procedure Procedure Tolerated Well Tolerated Well -Offloading Yes Yes -Type of Offloading Surgical Shoe Surgical Shoe -Debridement - Subq, 1st 20sq cm No No -Apply Skin Sub - 1st 25 sq cm - Feet 1 1 -Epifix 18mm Disc 3 3 Pain Scale: 0-10 Numeric Is Patient Pain Free? Yes Yes - Nurse 3 - General Ulcer D/C NN Start: 11/20/22 14:43 Freq: Status: Active Protocol: Activity Type Activity Date Activity User E-sign Co-sign Detail Recorded Client Recorded Date Recorded By Document 11/20/22 15:35 DL [id number] 11/20/22 15:36 DL Document 11/27/22 15:02 JF [id number] 11/27/22 15:03 JF 11/20/22 11/27/22 15:35 15:02 Wound Care Center Nurse 3 #9 Right Inferior Hallux -Ulcer Cleansing Rinsed/ Irrigated with Saline -Foul Odor after Cleansing No No -Other Dressing Epifix AMD pad -Primary Dressing Covered/Secured with Dry Gauze & Dry Gauze, Roll Gauze, Secured with Secured with Tape Tape -Other Covering foam padding Treatment Response Procedure Tolerated Well Pain Scale: 0-10 Numeric Is Patient Pain Free? Yes Yes WC - Visit Discharge Discharge Condition Stable Stable Ambulatory Status Ambulatory,Cane Ambulatory Transportation Private Auto Private Auto Accompanied by family DIL Medication Reconcilliation completed & Yes provided to patient/care provider Clinical Summary of Care Provided Yes Assessment/Plan Assessment/Plan (1) Type 2 diabetes mellitus with diabetic polyneuropathy: CODE(S): E11.42 - Type 2 diabetes mellitus with diabetic polyneuropathy (2) Non-pressure chronic ulcer of other part of right foot with fat layer exposed: CODE(S): L97.512 - Non-pressure chronic ulcer of other part of right foot with fat layer exposed (3) History of malignant neoplasm of lung in adulthood: CODE(S): Z85.118 - Personal history of other malignant neoplasm of bronchus and lung PLAN: Plan Patient was evaluated at the wound healing center today.? There is a platau in wound healing, he has been approved for an advanced wound healing product, Epifix to help expedite wound healing. Wound care - Epifix #9 applied today. 100% of the product was used, covered with wound veil and secured with steri strips topped with dry gauze dressing.? He is not to get the ulcer wet. If he would need to change his outer dressing over the next week, he was instructed to leave the wound veil in place. Compression - Single tubigrip Off-loading - Suman shoe has been re-adjusted at the foot and ankle clinic. Also placing the double stacked AMD foam to help prevent pressure on his foot and wrapped with cling. Stressed the importance of off loading and not putting pressure on this portion of his foot. Vascular:? 12/19/21 - Right EULALIA - 1.15, Left EULALIA 1.06.? Right digital 0.74, Left digital 0.71, bilateral triphasic. Venous studies showed bilateral no DVT, Bilateral calf with primary veins with reflux, bilateral SPJ reflux. Wound culture obtained on 07/18/22 positive for Staphylococcus pseudintermediu, he completed Augmentin. Wound culture obtained on 05/18/22 which was positive for Staphylococcus pseudintermediu, Staphylococcus saprophyticus and Anaerobic cocci.? Continue Augmentin. Encouraged high protein diet that is low in carbohydrates and sodium. Follow up one week. Call or come in sooner if develop any questions or concerns.
[2022-12-06 11:35] VITALS: BP 138/78; PULSE 108; RESP 20; TEMP 36.1
--- NOTE | 2022-12-06 12:05 | PN.PCM_ITS ---
History of Present Illness Date of Service: 12/06/22 Chief Complaint: right medial foot ulcer History of Wound: This 77-year-old male returns to the wound healing clinic for reoccurrence of a right medial foot ulcer. Wound care has been Moistened Cass covered with [place] SAP dressing. Patient diabetic neuropathic. 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 Patient offloading right foot with surgical shoe. Wound culture from 07/18/22 positive for Staphylococcus pseudintermediu, he completed Augmentin. Wound care - Epifix #10 placed today. Patient denies constitutional's or pains at this time. No other complaints. Progress of Wound: Right hallux ulcer has gotten smaller this week placing AMD Foam, doubled stack to help prevent pressure on the ulcer. Getting the pressure off his ulcer has really helped. He has some thickened dry skin surrounding the ulcer that I suspect is caused from the skin prep. Objective Data Objective Data Vital Signs: Vital Signs Temp Pulse Resp BP 97 F L 108 H 20 H 138/78 H 12/06/22 11:35 12/06/22 11:35 12/06/22 11:35 12/06/22 11:35 Charges/Coding Procedures Integumentary 150xxx-152xx: 11815 Skin sub graft face/nk/hf/g Debridement Note Debridement Note Wound debrided: medial foot ulcer Laterality: Right Wound Grade/Stage: Stage III Type of Debridement: Excisional debridement Anesthesia Used: 5% Lidocaine Gel Depth: Down to and including healthy tissue and in the subcutaneous layer Percentage of wound debrided: 100 Instrument Used: 3mm curette Tissue Removed: Devitalized tissue and slough Severity: Fat Layer Exposed Amount of bleeding with debridement: Mild Bleeding Controlled with: Compression and gauze Patient tolerated procedure: Patient tolerated procedure well Post-Debridement Measurements and Additional Note: Post-Debridement Measurements/Treatment URBAN - Nurse 1 - General Ulcer Assessment Start: 11/20/22 14:43 Freq: Status: Active Protocol: HEMA Activity Type Activity Date Activity User E-sign Co-sign Detail Recorded Client Recorded Date Recorded By Document 11/20/22 14:43 DL [id number] 11/20/22 14:49 DL Document 11/27/22 14:25 BMF [id number] 11/27/22 14:27 BMF Document 12/06/22 11:35 DL [id number] 12/06/22 11:39 DL 11/20/22 11/27/22 12/06/22 14:43 14:25 11:35 WC - Today's Visit Information Type of service Follow-up Visit Follow-up Visit (Physician/FRAME PULLEY MORTISING MACHINE OPERATOR (Physician/FRAME PULLEY MORTISING MACHINE OPERATOR ) ) Arrival Mode Ambulatory,Cane Ambulatory Transfer Assistance None None Accompanied by yany in law Patient Identification Verified (Name & Yes Yes ) Patient Requires Transmission-Based No No Precautions Finger Stick Blood Sugar(mg/dl) (if 157 indicated): Blood Sugar Stated by Patient Vital Signs Temperature (97.8 F-99.1 F) 97.1 F L 97.6 F L 97 F L Temperature Source Temporal Temporal Temporal Pulse Rate (60-100) 111 H 108 H 108 H Pulse Location Monitor Monitor Monitor Respiratory Rate (12-18) 20 H 20 H Respiratory rate source Observation Observation Blood Pressure (90/60-120/80) 154/77 H 138/61 H 138/78 H Blood Pressure Mean (mm Hg) 102 86 98 Source Monitor Monitor Monitor Position Sitting Blood Pressure Location Left Arm History Since Last Visit- (Skip if this is Patient's initial visit) Have you changed medications since your No No No last visit? Any new allergies or adverse reactions No No No Had a fall/change in ADL's that may No No No increase risk of falls Signs or symptoms of abuse and/or No No No neglect since last visit Have you been in the hospital since your No No No last visit? Has dressing in place as prescribed Yes Yes Has compression in place as prescribed Yes N/A Yes Has offloadiing in place as prescribed Yes Yes Yes Experienced any changes in pain level or No No No management Left Footwear Diabetic Shoe Right Footwear Surgical Shoe Surgical Shoe Surgical Shoe with pressure with pressure with pressure relief insole relief insole relief insole Pain Scale: 0-10 Numeric Is Patient Pain Free? Yes Yes Yes - Nurse 1 - General Ulcer Measurement Start: 11/20/22 14:43 Freq: Status: Active Protocol: Activity Type Activity Date Activity User E-sign Co-sign Detail Recorded Client Recorded Date Recorded By Document 11/20/22 14:43 DL [id number] 11/20/22 14:49 DL Document 11/27/22 14:25 [facility] [id number] 11/27/22 14:27 BM Document 12/06/22 11:35 DL [id number] 12/06/22 11:39 DL 11/20/22 11/27/22 12/06/22 14:43 14:25 11:35 Wound Center Nurse 1 #9 Right Inferior Hallux -Combined with other wound No -Current Size (cm) - Length 0.2 0.1 0.1 -Current Size (cm) - Width 0.3 0.1 0.1 -Current Size (cm) - Depth 0.2 0.1 0.1 -Total Square Cm 0.06 0.01 0.01 -Date of Last Picture (Recall this 11/27/22 field) -Photo Taken No Yes Yes -Epithelialization Large 67-100% -Tunneling No -Undermining/Tunneling No -Circular Undermining No -Exudate Amt Small None Present Small -Exudate Type Serosanguineous Serosanguineous -Wound Margin Thickened Distinct, Outline Attached -Granulation Amt Small (1-33%) Small (1-33%) -Granulation Quality [place] Pale -Necrosis Amt Small (1-33%) Small (1-33%) -Necrotic Tissue Type Adherent Slough Adherent Slough -Structure Exposed N/A N/A -Texture (Anna-wound Skin Appearance) Callus,Scarring Assessed, Friable, Scarring Scarring -Moisture (Anna-wound Skin Appearance) No Abnormality Assessed,Dry/ Dry/Scaly Scaly -Color (Anna-wound Skin Appearance) No Abnormality Assessed No Abnormality -Temperature (Anna-wound Skin No Abnormality No Abnormality No Abnormality Appearance) (Pt Warm) (Pt Warm) (Pt Warm) -Tenderness on Palpation (Anna-wound No No No Skin Appearance) -Ulcer Cleansing Rinsed/ Soap and Water Soap and Water Irrigated with Saline -Foul Odor after Cleansing No No No -Anesthetic Used 5% Lidocaine 5% Lidocaine 5% Lidocaine Gel Gel Gel WC - Nurse 2 - General Ulcer CM Notes Start: 11/20/22 14:43 Freq: Status: Active Protocol: Activity Type Activity Date Activity User E-sign Co-sign Detail Recorded Client Recorded Date Recorded By Document 11/20/22 15:00 DORA [id number] 11/20/22 15:09 JF Edit Result 11/20/22 15:00 JF (1) [id number] 11/20/22 15:18 JF Edit Result 11/20/22 15:00 JF (2) [id number] 11/20/22 15:20 JF Document 11/27/22 14:50 [id number] 11/27/22 15:02 Document 12/06/22 11:46 [id number] 12/06/22 11:57 JF (1) #9 Right Inferior Hallux - Post Debridement (cm) - Length => 0.4 - Post Debridement (cm) - Width => 0.5 - Post Debridement (cm) - Depth => 0.2 - Total Square (Post) (cm) => 0.20 - Area of Debridement (cm) - Length => 0.4 - Area of Debridement (cm) - Width => 0.5 - Total Square (Area) (cm) => 0.20 - Bioengineered Tissue No => Yes - Type of Bioengineered Tissue => Epifix 18mm Disc - Debridement - Subq, 1st 20sq cm Yes => No - Apply Skin Sub - 1st 25 sq cm - Feet => 1 - Epifix 18mm Disc => 3 (2) #9 Right Inferior Hallux - Expiration Date => 08/20/27 - Product Lot Number => [id number] - Percent Used => 100 - Lot number of Saline Used => [id number] 11/20/22 11/27/22 12/06/22 15:00 14:50 11:46 Wound Center Nurse 2 #9 Right Inferior Hallux -Time 15:02 14:54 11:47 -Correct Patient Yes Yes Yes -Correct Side, Site, Position Yes Yes Yes -Correct Procedure Yes Yes Yes -Procedure Performed Yes Yes Yes -Type of Procedure Debridement Debridement Debridement -Clinical Debridement Subcutaneous Subcutaneous Subcutaneous -Tissue Removed Subcutaneous Subcutaneous Subcutaneous -Post Debridement (cm) - Length 0.4 0.3 0.5 -Post Debridement (cm) - Width 0.5 0.4 0.5 -Post Debridement (cm) - Depth 0.2 0.2 0.2 -Total Square (Post) (cm) 0.20 0.12 0.25 -Area of Debridement (cm) - Length 0.4 0.3 0.5 -Area of Debridement (cm) - Width 0.5 0.4 0.5 -Total Square (Area) (cm) 0.20 0.12 0.25 -Tunneling No No No -Undermining/Tunneling No No No -Circular Undermining No No No -Wound/Ulcer Outcome Not Healed Not Healed Not Healed -Ulcer Cleansing Rinsed/ Rinsed/ Rinsed/ Irrigated with Irrigated with Irrigated with Saline Saline Saline -Foul Odor after Cleansing No No No -Bioengineered Tissue Yes Yes Yes -Type of Bioengineered Tissue Epifix 18mm Epifix 18mm Epifix 18mm Disc Disc Disc -Expiration Date 08/20/27 08/20/27 09/20/27 -Product Lot Number [id number] -Percent Used 100 100 100 -Lot number of Saline Used [id number] -Bleeding Controlled with Pressure Pressure Pressure -Treatment Response Procedure Procedure Procedure Tolerated Well Tolerated Well Tolerated Well -Offloading Yes Yes No -Type of Offloading Surgical Shoe Surgical Shoe -Debridement - Subq, 1st 20sq cm No No No -Apply Skin Sub - 1st 25 sq cm - Feet 1 1 1 -Epifix 18mm Disc 3 3 3 Pain Scale: 0-10 Numeric Is Patient Pain Free? Yes Yes Yes WC - Nurse 3 - General Ulcer D/C NN Start: 11/20/22 14:43 Freq: Status: Active Protocol: Activity Type Activity Date Activity User E-sign Co-sign Detail Recorded Client Recorded Date Recorded By Document 11/20/22 15:35 DL [id number] 11/20/22 15:36 DL Document 11/27/22 15:02 [id number] 11/27/22 15:03 JF Document 12/06/22 11:57 [id number] 12/06/22 11:58 JF 11/20/22 11/27/22 12/06/22 15:35 15:02 11:57 Wound Care Center Nurse 3 #9 Right Inferior Hallux -Ulcer Cleansing Rinsed/ Rinsed/ Irrigated with Irrigated with Saline Saline -Foul Odor after Cleansing No No No -Other Dressing Epifix AMD pad felt pad -Primary Dressing Covered/Secured with Dry Gauze & Dry Gauze, Dry Gauze,Dry Roll Gauze, Secured with Gauze & Roll Secured with Tape Gauze,Secured Tape with Tape -Other Covering foam padding Treatment Response Procedure Tolerated Well Pain Scale: 0-10 Numeric Is Patient Pain Free? Yes Yes Yes WC - Visit Discharge Discharge Condition Stable Stable Stable Ambulatory Status Ambulatory,Cane Ambulatory Ambulatory Transportation Private Auto Private Auto Private Auto Accompanied by family DIL Medication Reconcilliation completed & Yes Yes provided to patient/care provider Clinical Summary of Care Provided Yes Yes Assessment/Plan Assessment/Plan (1) Type 2 diabetes mellitus with diabetic polyneuropathy: CODE(S): E11.42 - Type 2 diabetes mellitus with diabetic polyneuropathy (2) Non-pressure chronic ulcer of other part of right foot with fat layer exposed: CODE(S): L97.512 - Non-pressure chronic ulcer of other part of right foot with fat layer exposed (3) History of malignant neoplasm of lung in adulthood: CODE(S): Z85.118 - Personal history of other malignant neoplasm of bronchus and lung PLAN: Plan Patient was evaluated at the wound healing center today.? There is a platau in wound healing, he has been approved for an advanced wound healing product, Epifix to help expedite wound healing. Wound care - Epifix #10 applied today. 100% of the product was used, covered with wound veil and secured with steri strips topped with dry gauze dressing.? Using double stacked AMD foam to help prevent pressure on the ulcer. He is not to get the ulcer wet. If he would need to change his outer dressing over the next week, he was instructed to leave the wound veil in place. Compression - Single tubigrip Off-loading - Suman shoe has been re-adjusted at the foot and ankle clinic. Also placing the double stacked AMD foam to help prevent pressure on his foot and wrapped with cling. Stressed the importance of off loading and not putting pressure on this portion of his foot. Vascular:? 12/19/21 - Right EULALIA - 1.15, Left EULALIA 1.06.? Right digital 0.74, Left digital 0.71, bilateral triphasic. Venous studies showed bilateral no DVT, Bilateral calf with primary veins with reflux, bilateral SPJ reflux. Wound culture obtained on 07/18/22 positive for Staphylococcus pseudintermediu, he completed Augmentin. Wound culture obtained on 05/18/22 which was positive for Staphylococcus p seudintermediu, Staphylococcus saprophyticus and Anaerobic cocci.? Continue Augmentin. Encouraged high protein diet that is low in carbohydrates and sodium. Follow up one week. Call or come in sooner if develop any questions or concerns.
[2022-12-11 13:12] VITALS: BP 110/87; PULSE 107; RESP 20; TEMP 35.7
--- NOTE | 2022-12-11 15:27 | PCM.WC.PN ---
History of Present Illness Date of Service: 12/11/22 Chief Complaint: right medial foot ulcer History of Wound: This 77-year-old male returns to the wound healing clinic for reoccurrence of a right medial foot ulcer. Wound care has been Moistened Cass covered with [place] SAP dressing. Patient diabetic neuropathic. 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 Patient offloading right foot with surgical shoe. Wound culture from 07/18/22 positive for Staphylococcus pseudintermediu, he completed Augmentin. Wound care - He completed 10 applications of Epifix. Collagen hydrogel covered with gauze. Aquaphor to dorsal foot excoriated area. Patient denies constitutional's or pains at this time. No other complaints. Progress of Wound: Right hallux ulcer has gotten smaller this week with the Epifix and placing AMD Foam, doubled stack to help prevent pressure on the ulcer. He has excoriation on the dorsal aspect of his foot. Objective Data Objective Data Vital Signs: Vital Signs Temp Pulse Resp BP O2 Del Method 96.2 F L 107 H 20 H 110/87 H Room Air 12/11/22 13:12 12/11/22 13:12 12/11/22 13:12 12/11/22 13:12 12/11/22 13:12 Oxygen Delivery Method Room Air Charges/Coding Procedures Integumentary 111xxx-113xx: 99197 Mihaela subq tissue 20 sq cm/< Debridement Note Debridement Note Wound debrided: medial foot ulcer Laterality: Right Wound Grade/Stage: Stage III Type of Debridement: Excisional debridement Anesthesia Used: 5% Lidocaine Gel Depth: Down to and including healthy tissue and in the subcutaneous layer Percentage of wound debrided: 100 Instrument Used: 3mm curette Tissue Removed: Devitalized tissue and slough Severity: Fat Layer Exposed Amount of bleeding with debridement: Mild Bleeding Controlled with: Compression and gauze Patient tolerated procedure: Patient tolerated procedure well Post-Debridement Measurements and Additional Note: Post-Debridement Measurements/Treatment WC - Nurse 1 - General Ulcer Assessment Start: 11/20/22 14:43 Freq: Status: Active Protocol: HEMA Activity Type Activity Date Activity User E-sign Co-sign Detail Recorded Client Recorded Date Recorded By Document 11/20/22 14:43 DL [id number] 11/20/22 14:49 DL Document 11/27/22 14:25 [facility] [id number] 11/27/22 14:27 BMF Document 12/06/22 11:35 DL [id number] 12/06/22 11:39 DL Document 12/11/22 13:12 [facility] [id number] 12/11/22 13:21 BM 11/20/22 11/27/22 12/06/22 14:43 14:25 11:35 WC - Today's Visit Information Type of service Follow-up Visit Follow-up Visit (Physician/TRASH MAN (Physician/TRASH MAN ) ) Arrival Mode Ambulatory,Cane Ambulatory Transfer Assistance None None Accompanied by wei in law Patient Identification Verified (Name & Yes Yes ) Patient Requires Transmission-Based No No Precautions Finger Stick Blood Sugar(mg/dl) (if 157 indicated): Blood Sugar Stated by Patient Vital Signs Temperature (97.8 F-99.1 F) 97.1 F L 97.6 F L 97 F L Temperature Source Temporal Temporal Temporal Pulse Rate (60-100) 111 H 108 H 108 H Pulse Location Monitor Monitor Monitor Respiratory Rate (12-18) 20 H 20 H Respiratory rate source Observation Observation Oxygen Delivery Method Blood Pressure (90/60-120/80) 154/77 H 138/61 H 138/78 H Blood Pressure Mean (mm Hg) 102 86 98 Source Monitor Monitor Monitor Position Sitting Blood Pressure Location Left Arm History Since Last Visit- (Skip if this is Patient's initial visit) Have you changed medications since your No No No last visit? Any new allergies or adverse reactions No No No Had a fall/change in ADL's that may No No No increase risk of falls Signs or symptoms of abuse and/or No No No neglect since last visit Have you been in the hospital since your No No No last visit? Has dressing in place as prescribed Yes Yes Has compression in place as prescribed Yes N/A Yes Has offloadiing in place as prescribed Yes Yes Yes Experienced any changes in pain level or No No No management Left Footwear Diabetic Shoe Right Footwear Surgical Shoe Surgical Shoe Surgical Shoe with pressure with pressure with pressure relief insole relief insole relief insole Pain Scale: 0-10 Numeric Is Patient Pain Free? Yes Yes Yes 12/11/22 13:12 WC - Today's Visit Information Type of service Follow-up Visit (Physician/TRASH MAN ) Arrival Mode Ambulatory,Cane Transfer Assistance None Accompanied by WEI IN LAW Patient Identification Verified (Name & Yes ) Patient Requires Transmission-Based No Precautions Finger Stick Blood Sugar(mg/dl) (if indicated): Blood Sugar Vital Signs Temperature (97.8 F-99.1 F) 96.2 F L Temperature Source Temporal Pulse Rate (60-100) 107 H Pulse Location Monitor Respiratory Rate (12-18) 20 H Respiratory rate source Observation Oxygen Delivery Method Room Air Blood Pressure (90/60-120/80) 110/87 H Blood Pressure Mean (mm Hg) 94 Source Monitor Position Sitting Blood Pressure Location Left Forearm History Since Last Visit- (Skip if this is Patient's initial visit) Have you changed medications since your No last visit? Any new allergies or adverse reactions No Had a fall/change in ADL's that may No increase risk of falls Signs or symptoms of abuse and/or No neglect since last visit Have you been in the hospital since your No last visit? Has dressing in place as prescribed Yes Has compression in place as prescribed N/A Has offloadiing in place as prescribed Yes Experienced any changes in pain level or No management Left Footwear Surgical Shoe with pressure relief insole Right Footwear Diabetic Shoe Pain Scale: 0-10 Numeric Is Patient Pain Free? Yes WC - Nurse 1 - General Ulcer Measurement Start: 11/20/22 14:43 Freq: Status: Active Protocol: Activity Type Activity Date Activity User E-sign Co-sign Detail Recorded Client Recorded Date Recorded By Document 11/20/22 14:43 DL [id number] 11/20/22 14:49 DL Document 11/27/22 14:25 [facility] [id number] 11/27/22 14:27 BMF Document 12/06/22 11:35 DL [id number] 12/06/22 11:39 DL Document 12/11/22 13:12 BMF [id number] 12/11/22 13:21 BMF 11/20/22 11/27/22 12/06/22 14:43 14:25 11:35 Wound Center Nurse 1 #9 Right Inferior Hallux -Combined with other wound No -Current Size (cm) - Length 0.2 0.1 0.1 -Current Size (cm) - Width 0.3 0.1 0.1 -Current Size (cm) - Depth 0.2 0.1 0.1 -Total Square Cm 0.06 0.01 0.01 -Date of Last Picture (Recall this 11/27/22 field) -Photo Taken No Yes Yes -Epithelialization Large 67-100% -Tunneling No -Undermining/Tunneling No -Circular Undermining No -Exudate Amt Small None Present Small -Exudate Type Serosanguineous Serosanguineous -Wound Margin Thickened Distinct, Outline Attached -Granulation Amt Small (1-33%) Small (1-33%) -Granulation Quality [place] Pale -Slough/Fibrin -Necrosis Amt Small (1-33%) Small (1-33%) -Necrotic Tissue Type Adherent Slough Adherent Slough -Structure Exposed N/A N/A -Texture (Anna-wound Skin Appearance) Callus,Scarring Assessed, Friable, Scarring Scarring -Moisture (Anna-wound Skin Appearance) No Abnormality Assessed,Dry/ Dry/Scaly Scaly -Color (Anna-wound Skin Appearance) No Abnormality Assessed No Abnormality -Temperature (Anna-wound Skin No Abnormality No Abnormality No Abnormality Appearance) (Pt Warm) (Pt Warm) (Pt Warm) -Tenderness on Palpation (Anna-wound No No No Skin Appearance) -Ulcer Cleansing Rinsed/ Soap and Water Soap and Water Irrigated with Saline -Foul Odor after Cleansing No No No -Anesthetic Used 5% Lidocaine 5% Lidocaine 5% Lidocaine Gel Gel Gel 12/11/22 13:12 Wound Center Nurse 1 #9 Right Inferior Hallux -Combined with other wound No -Current Size (cm) - Length 0.4 -Current Size (cm) - Width 0.4 -Current Size (cm) - Depth 0.1 -Total Square Cm 0.16 -Date of Last Picture (Recall this 12/11/22 field) -Photo Taken Yes -Epithelialization Small 1-33% -Tunneling No -Undermining/Tunneling No -Circular Undermining No -Exudate Amt Small -Exudate Type Serosanguineous -Wound Margin Distinct, Outline Attached -Granulation Amt None Present (0 %) -Granulation Quality -Slough/Fibrin Yes -Necrosis Amt Large (67-100%) -Necrotic Tissue Type Adherent Slough -Structure Exposed -Texture (Anna-wound Skin Appearance) Assessed, Excoriation, Scarring,Rash -Moisture (Anna-wound Skin Appearance) Assessed -Color (Anna-wound Skin Appearance) Assessed, Erythema -Temperature (Anna-wound Skin No Abnormality Appearance) (Pt Warm) -Tenderness on Palpation (Anna-wound No Skin Appearance) -Ulcer Cleansing Soap and Water -Foul Odor after Cleansing No -Anesthetic Used 5% Lidocaine Gel WC - Nurse 2 - General Ulcer CM Notes Start: 11/20/22 14:43 Freq: Status: Active Protocol: Activity Type Activity Date Activity User E-sign Co-sign Detail Recorded Client Recorded Date Recorded By Document 11/20/22 15:00 [id number] 11/20/22 15:09 Edit Result 11/20/22 15:00 JF (1) [id number] 11/20/22 15:18 JF Edit Result 11/20/22 15:00 JF (2) [id number] 11/20/22 15:20 Document 11/27/22 14:50 [id number] 11/27/22 15:02 Document 12/06/22 11:46 [id number] 12/06/22 11:57 Document 12/11/22 13:30 [id number] 12/11/22 13:33 (1) #9 Right Inferior Hallux - Post Debridement (cm) - Length => 0.4 - Post Debridement (cm) - Width => 0.5 - Post Debridement (cm) - Depth => 0.2 - Total Square (Post) (cm) => 0.20 - Area of Debridement (cm) - Length => 0.4 - Area of Debridement (cm) - Width => 0.5 - Total Square (Area) (cm) => 0.20 - Bioengineered Tissue No => Yes - Type of Bioengineered Tissue => Epifix 18mm Disc - Debridement - Subq, 1st 20sq cm Yes => No - Apply Skin Sub - 1st 25 sq cm - Feet => 1 - Epifix 18mm Disc => 3 (2) #9 Right Inferior Hallux - Expiration Date => 08/20/27 - Product Lot Number => [id number] - Percent Used => 100 - Lot number of Saline Used => [id number] 11/20/22 11/27/22 12/06/22 15:00 14:50 11:46 Wound Center Nurse 2 #9 Right Inferior Hallux -Time 15:02 14:54 11:47 -Correct Patient Yes Yes Yes -Correct Side, Site, Position Yes Yes Yes -Correct Procedure Yes Yes Yes -Procedure Performed Yes Yes Yes -Type of Procedure Debridement Debridement Debridement -Clinical Debridement Subcutaneous Subcutaneous Subcutaneous -Tissue Removed Subcutaneous Subcutaneous Subcutaneous -Post Debridement (cm) - Length 0.4 0.3 0.5 -Post Debridement (cm) - Width 0.5 0.4 0.5 -Post Debridement (cm) - Depth 0.2 0.2 0.2 -Total Square (Post) (cm) 0.20 0.12 0.25 -Area of Debridement (cm) - Length 0.4 0.3 0.5 -Area of Debridement (cm) - Width 0.5 0.4 0.5 -Total Square (Area) (cm) 0.20 0.12 0.25 -Tunneling No No No -Undermining/Tunneling No No No -Circular Undermining No No No -Wound/Ulcer Outcome Not Healed Not Healed Not Healed -Ulcer Cleansing Rinsed/ Rinsed/ Rinsed/ Irrigated with Irrigated with Irrigated with Saline Saline Saline -Foul Odor after Cleansing No No No -Bioengineered Tissue Yes Yes Yes -Type of Bioengineered Tissue Epifix 18mm Epifix 18mm Epifix 18mm Disc Disc Disc -Expiration Date 08/20/27 08/20/27 09/20/27 -Product Lot Number [id number] -Percent Used 100 100 100 -Lot number of Saline Used [id number] -Bleeding Controlled with Pressure Pressure Pressure -Treatment Response Procedure Procedure Procedure Tolerated Well Tolerated Well Tolerated Well -Offloading Yes Yes No -Type of Offloading Surgical Shoe Surgical Shoe -Debridement - Subq, 1st 20sq cm No No No -Apply Skin Sub - 1st 25 sq cm - Feet 1 1 1 -Epifix 18mm Disc 3 3 3 Pain Scale: 0-10 Numeric Is Patient Pain Free? Yes Yes Yes 12/11/22 13:30 Wound Center Nurse 2 #9 Right Inferior Hallux -Time 13:31 -Correct Patient Yes -Correct Side, Site, Position Yes -Correct Procedure Yes -Procedure Performed Yes -Type of Procedure Debridement -Clinical Debridement Subcutaneous -Tissue Removed Subcutaneous -Post Debridement (cm) - Length 0.3 -Post Debridement (cm) - Width 0.3 -Post Debridement (cm) - Depth 0.1 -Total Square (Post) (cm) 0.09 -Area of Debridement (cm) - Length 0.3 -Area of Debridement (cm) - Width 0.3 -Total Square (Area) (cm) 0.09 -Tunneling No -Undermining/Tunneling No -Circular Undermining No -Wound/Ulcer Outcome Not Healed -Ulcer Cleansing Rinsed/ Irrigated with Saline -Foul Odor after Cleansing No -Bioengineered Tissue No -Type of Bioengineered Tissue -Expiration Date -Product Lot Number -Percent Used -Lot number of Saline Used -Bleeding Controlled with Pressure -Treatment Response Procedure Tolerated Well -Offloading Yes -Type of Offloading Surgical Shoe -Debridement - Subq, 1st 20sq cm Yes -Apply Skin Sub - 1st 25 sq cm - Feet -Epifix 18mm Disc Pain Scale: 0-10 Numeric Is Patient Pain Free? Yes - Nurse 3 - General Ulcer D/C NN Start: 11/20/22 14:43 Freq: Status: Active Protocol: Activity Type Activity Date Activity User E-sign Co-sign Detail Recorded Client Recorded Date Recorded By Document 11/20/22 15:35 [id number] 11/20/22 15:36 DL Document 11/27/22 15:02 [id number] 11/27/22 15:03 Document 12/06/22 11:57 [id number] 12/06/22 11:58 Document 12/11/22 13:57 DL [id number] 12/11/22 13:58 DL 11/20/22 11/27/22 12/06/22 15:35 15:02 11:57 Wound Care Center Nurse 3 #9 Right Inferior Hallux -Ulcer Cleansing Rinsed/ Rinsed/ Irrigated with Irrigated with Saline Saline -Foul Odor after Cleansing No No No -Other Dressing Epifix AMD pad felt pad -Primary Dressing Covered/Secured with Dry Gauze & Dry Gauze, Dry Gauze,Dry Roll Gauze, Secured with Gauze & Roll Secured with Tape Gauze,Secured Tape with Tape -Other Covering foam padding Treatment Response Procedure Tolerated Well Pain Scale: 0-10 Numeric Is Patient Pain Free? Yes Yes Yes WC - Visit Discharge Discharge Condition Stable Stable Stable Ambulatory Status Ambulatory,Cane Ambulatory Ambulatory Transportation Private Auto Private Auto Private Auto Accompanied by family DIL Medication Reconcilliation completed & Yes Yes provided to patient/care provider Clinical Summary of Care Provided Yes Yes 12/11/22 13:57 Wound Care Center Nurse 3 #9 Right Inferior Hallux -Ulcer Cleansing Rinsed/ Irrigated with Saline -Foul Odor after Cleansing No -Other Dressing hydrogel -Primary Dressing Covered/Secured with Dry Gauze & Roll Gauze, Secured with Tape -Other Covering appature pads/ padding Treatment Response Procedure Tolerated Well Pain Scale: 0-10 Numeric Is Patient Pain Free? Yes WC - Visit Discharge Discharge Condition Stable Ambulatory Status Ambulatory,Cane Transportation Private Auto Accompanied by family Medication Reconcilliation completed & provided to patient/care provider Clinical Summary of Care Provided Assessment/Plan Assessment/Plan (1) Type 2 diabetes mellitus with diabetic polyneuropathy: CODE(S): E11.42 - Type 2 diabetes mellitus with diabetic polyneuropathy (2) Non-pressure chronic ulcer of other part of right foot with fat layer exposed: CODE(S): L97.512 - Non-pressure chronic ulcer of other part of right foot with fat layer exposed (3) History of malignant neoplasm of lung in adulthood: CODE(S): Z85.118 - Personal history of other malignant neoplasm of bronchus and lung PLAN: Plan Patient was evaluated at the wound healing center today.? Wound care - Ten applications of Epifix completed. Collagen hydrogel covered with gauze to the medial foot ulcer daily after washing with soap and water. Apply Aquaphor or Vasoline to the dorsal aspect of foot to moisturize the dry, flaky, excoriated skin. Compression - Single tubigrip Off-loading - Suman shoe has been re-adjusted at the foot and ankle clinic. Also placing the double stacked AMD foam to help prevent pressure on his foot and wrapped with cling. Stressed the importance of off loading and not putting pressure on this portion of his foot. Vascular:? 12/19/21 - Right EULALIA - 1.15, Left EULALIA 1.06.? Right digital 0.74, Left digital 0.71, bilateral triphasic. Venous studies showed bilateral no DVT, Bilateral calf with primary veins with reflux, bilateral SPJ reflux. Wound culture obtained on 07/18/22 positive for Staphylococcus pseudintermediu, he completed Augmentin. Wound culture obtained on 05/18/22 which was positive for Staphylococcus pseudintermediu, Staphylococcus saprophyticus and Anaerobic cocci.? Continue Augmentin. Encouraged high protein diet that is low in carbohydrates and sodium. Follow up one week. Call or come in sooner if develop any questions or concerns.
== END 2022-12-17 23:59 | disposition home or self-care (01) ==
LOC: WC 13:00
PROVIDERS: PCP Family Medicine; Visit Provider Nurse Practitioner Family
DX: E11.621 Type 2 diabetes mellitus with foot ulcer (principal); L97.512 Non-pressure chronic ulcer of other part of right foot with fat layer exposed; E11.42 Type 2 diabetes mellitus with diabetic polyneuropathy; Z85.118 Personal history of other malignant neoplasm of bronchus and lung
CPT/HCPCS: 11042; 15275; Q4186

== ENCOUNTER 2022-12-30 22:35 | Emergency (ER) | payer MEDICARE, OTHER, SELFPAY ==
[2022-12-30 22:36] VITALS: BP 145/57; PULSE 107; RESP 23; TEMP 38.1; O2SAT 93; BMI 30.5
[2022-12-30 22:55] VITALS: BP 146/54; PULSE 106; RESP 16; TEMP 37.4; O2SAT 96
--- NOTE | 2022-12-30 23:02 | RAD_ITS ---
INDICATION: cough EXAMINATION/TECHNIQUE: X-RAY - XR Chest 1 View COMPARISON: October 02, 2022. FINDINGS: LINES/DEVICES: None. LUNGS: No consolidation, florid edema or effusion. No pneumothorax. MEDIASTINUM AND CARDIOVASCULAR STRUCTURES: Unchanged cardiomegaly. Aortic atherosclerosis BONES AND SOFT TISSUES: Unremarkable. RAD/Chest 1 View (Portable) IMPRESSION: No radiographic evidence of acute cardiopulmonary disease. Electronically Signed: Kash Nevarez MD at 0:41 EDT ,
--- NOTE | 2022-12-30 23:04 | EDS_ITS ---
HPI History of Present Illness Chief Complaint: Fever Detail of Chief Complaint: Fever and chills today around 3 PM. Informant: patient and family Onset/Context/Timing Onset: Today Context: Gradual Onset Timing: Continuous Current Severity: Mild Maximum Severity: Mild Narrative Narrative: 77-year-old male extensive past medical history including CAD, CKD, hypertension, diabetes, UTIs and history of lung cancer. Today around 3 PM he started having chills and a fever as high as 104. Says he has a cough primarily white phlegm. No vomiting or diarrhea. No abdominal pain. No recent exposures. No recent hospitalizations. Denies any dysuria. Prior similar symptoms: Yes Recent Illness/Hospitalization: No PFSH [facility] Medical History Anemia Atherosclerosis of coronary artery of [place] heart without angina pectoris BPH (benign prostatic hyperplasia) Chronic kidney disease, stage 3 Coronary artery disease COVID Delayed wound healing Former smoker GERD (gastroesophageal reflux disease) Hyperlipidemia Hypertension Lower extremity edema Malnutrition Osteomyelitis of ankle, left, acute Peripheral vascular occlusive disease Type 2 diabetes mellitus with diabetic polyneuropathy Ulcer of left lower extremity with fat layer exposed Venous insufficiency Wears hearing aid in both ears Home Medications aspirin 81 mg tablet,delayed release (Adult Low Dose Aspirin) 81 mg PO QDAY 08/22/17 [History Last Taken Unknown] insulin glargine 100 unit/mL subcutaneous solution 40 unit SQ DAILY 11/19/19 [History Last Taken Unknown] multivitamin (Daily Multi-Vitamin tablet) 1 tab PO DAILY 06/28/20 [History Last Taken Unknown] sitagliptin phosphate 50 mg tablet (Januvia) 50 mg PO DAILY 11/02/21 [History Last Taken Unknown] pravastatin 20 mg tablet 20 mg PO DAILY 01/17/22 [History Last Taken Unknown] clopidogrel 75 mg tablet (Plavix) 75 mg PO DAILY #90 tabs 10/09/22 [Rx Last Taken Unknown] lisinopril 2.5 mg tablet See Rx Instructions .Route .COMPLEX #90 TABLETS 10/20/22 [Rx Last Taken Unknown] Allergy/AdvReac Type Severity Reaction Status Date / Time ibuprofen Allergy Severe Facial Verified 12/12/22 14:04 swelling (angioedema) Family History Brother Diabetes Father , Age 72 stomach ulcers No problems noted. Mother , Age 71 pancreatitis No problems noted. Sister , hepatitis C No problems noted. Surgical History H/O aorto-femoral bypass (~2009) History of transurethral resection of prostate Presence of aortocoronary bypass graft (~03/2013) Social History Smoking Status: Former smoker Tobacco: How many years used: 30 how long ago did patient quit smokin years ROS ROS ED ROS Narrative Fever. Chills. Cough. Review of Systems ROS Unobtainable: Denies due to encephalopathy Constitutional Constitutional ED: Reports chills and fever(s) Eyes Eyes: Denies blurry vision ENT ENT ED: Denies ear pain Cardiovascular Cardiovascular: Denies chest pain Respiratory/Chest Respiratory/Chest: Reports cough; Denies dyspnea Gastrointestinal Gastrointestinal: Denies abdominal pain, constipation, diarrhea, melena, nausea or vomiting Genitourinary Genitourinary ED: Denies dysuria or hematuria Musculoskeletal Musculoskeletal: Denies arthralgias Integumentary Denies abscess Neurologic Neurologic: Denies headache(s) Psychiatric Psychiatric: Denies anxiety Endocrine Endocrinology: Denies cold intolerance Hematologic/Lymphatic Hematologic/Lymphatic: Reports none Allergic/Immunologic Allergic/Immunologic ED: Denies mouth swelling or tongue swelling EXAM Physical Exam Narrative Exam Narrative: male vital signs are stable he does have a low-grade temperature 100.6. He does not look septic or toxic. He is not dehydrated. Family member present in the room. Patient is sitting upright in bed. H EENT exam unremarkable. Moist mucous membranes. Neck nontender no JVD. No lymphadenopathy. Lungs clear to auscultation. Dry cough. Heart tachycardic rate of 105 no murmur. Chest wall nontender. Prior sternotomy. Abdomen soft, nontender, nondistended normal bowel sounds no peritoneal signs. Moving all 4 extremities. Nontender. No edema. No cellulitis. Normal [employer] strength. Normal dorsi plantarflexion. Neurologically is awake and alert. Answering questions and following commands. Const Vital Signs: 12/30/22 22:36 12/30/22 22:43 12/30/22 23:18 Temperature 100.6 F H Temperature Source Oral Pulse Rate 107 H Respiratory Rate 23 H Respiratory Effort Normal Non-Labored Blood Pressure 145/57 H Blood Pressure Mean 86 Pulse Ox 93 Oxygen Delivery Method Room Air Room Air 12/30/22 22:55 12/31/22 00:21 Temperature 99.4 F H 99.6 F H Temperature Source Oral Oral Pulse Rate 106 H 110 H Respiratory Rate 16 21 H Respiratory Effort Blood Pressure 146/54 H 120/56 L Blood Pressure Mean 84 77 Pulse Ox 96 92 Oxygen Delivery Method Room Air Room Air Positive well nourished and well developed; Negative for cachectic, contractures or unkempt General Appearance ED: well developed and NAD; Negative for unkempt, cachectic, contractures, cyanotic or pallor Nutritional Appearance: Negative for cachectic HEENT Reports moist mucous membranes; Denies dry mucous membranes Negative for trauma or tenderness Mouth ED: No dry mucous membranes Mouth: No dry mucous membranes Eyes PERRL and EOMs intact bilaterally General Eye ED: Negative for pale conjunctiva or scleral icterus Neck no lymphadenopathy, supple and no JVD General: Negative for tenderness Lymph Lymphatic: Negative for other Chest Wall inspection of chest normal and palpation of chest normal Chest: Negative for other Resp normal respiratory effort and clear to auscultation bilaterally Resp Narrative: Dry cough. Effort and Inspection: Negative for retractions Auscultation: Negative for rales, rhonchi or wheezes Cardio regular rhythm, S1 normal heart sound, S2 normal heart sound and no murmurs; Negative for regular rate Rate: tachycardic Rhythm: Negative for abnormal rhythm GI normal to inspection, nondistended, normoactive bowel sounds, non-tender, non- distended and no masses Inspection: Negative for abdominal distention Auscultation: normoactive bowel sounds Palpation: soft; Negative for tender or guarding Bladder / Kidney Exam: No other Back/Spine no CVA tenderness General Back: Negative for CVA tenderness Cervical Spine: Negative for cervical spine tenderness Thoracic Spine / Upper Back: Negative for thoracic spinal tenderness Lumbar Spine / Lower Back: Negative for lumbar spinal tenderness Extremity normal to inspection General Extremety ED: Negative for edema or tenderness General Extremity: Negative for edema Neuro oriented x3 and CN's II-XII intact bilaterally Sensorium / Orientation: alert; Negative for orientation impaired, lethargic or stuporous Psych mental status grossly normal Appearance: Negative for unkempt Attitude: No agitated Mood & Affect: Negative for depressed, anxious or tearful Skin no rashes or lesions noted, no wounds and skin turgor normal General Skin Exam: elasticity normal; Negative for jaundice or pallor Lesions: No lesion noted Rashes: No rashes noted Trauma: Negative for abrasion Wounds: Negative for wounds noted MDM MDM MDM Narrative Medical decision making narrative: 77-year-old male extensive past medical history with a fever today as high as 104 at home around 3 PM. Undergo a septic work-up. Exam was pretty benign. Differential would include pneumonia, UTI, bacteremia or sepsis versus other etiologies. Given Tylenol and some IV fluids. I reviewed his labs compared to prior labs and these are his baseline. Repeat exam is doing well 12:53 AM. He was given Tylenol for his fever. He has been given a half a liter normal saline. Patient wants to be discharged to home. I spoke to he and his son via phone on my repeat evaluation. They are both comfortable with that. Nurses will get him up walking recheck his vital signs if he is doing well we will let him be discharged to home. Tylenol and fluids for the influenza. Follow-up with his physician and return if worse. Nurses ambulated the patient and did well. He is afebrile. His vital signs are stable. He would like to be discharged home. History & Record Review Discussion w/independent historian: Patient Lab Data Attestation: I reviewed the patient's lab results. Lab results narrative: Influenza A positive. COVID-negative. CBC shows a white count 10.6. H&H 12.1 and 38. Platelets 210. PT/INR PTT are unremarkable. Electrolytes show sodium 134. Potassium of 5.2. Gap is 7. BUN and creatinine of 44 and 2 and is a history of chronic kidney disease. Glucose 119. Liver enzymes unremarkable. Lactic acid 1.4. Urinalysis is negative. No white or red cells. No bacteria or nitrites. Chest x-ray is chronic changes interpreted by myself. Labs: Laboratory Results - last 24 hr 12/30/22 12/30/22 12/30/22 22:50 22:50 22:50 WBC 10.6 RBC 4.36 L Hgb 12.1 L Hct 38.0 L MCV 87.2 MCH 27.8 MCHC 31.8 L RDW Std Deviation 50.5 H RDW Coeff of Reggie 15.9 H Plt Count 210 MPV 10.2 Immature Gran % (Auto) 0.500 Neut % (Auto) 83.3 H Lymph % (Auto) 6.4 L [place] % (Auto) 9.1 Eos % (Auto) 0.2 Baso % (Auto) 0.5 Absolute Neuts (auto) 8.8 H Absolute Lymphs (auto) 0.68 L Nucleated RBC % 0 PT 15.8 H INR 1.3 APTT 38.9 H Sodium 134 L Potassium 5.2 H Chloride 102 Carbon Dioxide 25.0 Anion Gap 7 BUN 44 H Creatinine 2.00 H Estim Creat Clear Calc 27.91 Est GFR (MDRD) Af Amer 42 L Est GFR (MDRD) Non-Af 35 L BUN/Creatinine Ratio 22.0 H Glucose 119 H Lactic Acid Calcium 9.2 Total Bilirubin 0.50 AST 22 ALT 22 Alkaline Phosphatase 53 Total Protein 8.2 Albumin 3.5 Globulin 4.7 H Albumin/Globulin Ratio 0.7 L Urine Color Urine Clarity Urine pH Ur Specific [place] Urine Protein Urine Glucose (UA) Urine Ketones Urine Occult Blood Urine Nitrite Urine Bilirubin Urine Urobilinogen Ur Leukocyte Esterase Urine RBC Urine WBC Ur Squamous Epith Cells Urine Bacteria Urine Mucus 12/30/22 12/30/22 22:50 23:59 WBC RBC Hgb Hct MCV MCH MCHC RDW Std Deviation RDW Coeff of Reggie Plt Count MPV Immature Gran % (Auto) Neut % (Auto) Lymph % (Auto) [place] % (Auto) Eos % (Auto) Baso % (Auto) Absolute Neuts (auto) Absolute Lymphs (auto) Nucleated RBC % PT INR APTT Sodium Potassium Chloride Carbon Dioxide Anion Gap BUN Creatinine Estim Creat Clear Calc Est GFR (MDRD) Af Amer Est GFR (MDRD) Non-Af BUN/Creatinine Ratio Glucose Lactic Acid 1.4 Calcium Total Bilirubin AST ALT Alkaline Phosphatase Total Protein Albumin Globulin Albumin/Globulin Ratio Urine Color Yellow Urine Clarity Clear Urine pH 7.0 Ur Specific [place] 1.005 Urine Protein 100 H Urine Glucose (UA) Normal Urine Ketones Negative Urine Occult Blood 25 H Urine Nitrite Negative Urine Bilirubin Negative Urine Urobilinogen Normal Ur Leukocyte Esterase 25 H Urine RBC 0 SEEN Urine WBC 0-5 SEEN Ur Squamous Epith Cells 0 SEEN Urine Bacteria 0 SEEN Urine Mucus 0 SEEN Radiography Chest X-Ray - ED: 1 View, Read by ED Physician, Read by Radiologist, Heart, Lungs, Mediastinum, Bony Structures, No Acute Disease and Chronic Changes Diagnostic Testing: Clinical Impression(s) from Imaging Studies Chest X-Ray 12/30/22 23:02 IMPRESSION: No radiographic evidence of acute cardiopulmonary disease. Electronically Signed: Kash Nevarez MD at 0:41 EDT Reading Location ID and State: [facility] / [place] Tel , Service support , Chest x-ray, portable, single view shows chronic changes no acute process. No infiltrates. Prior sternotomy. Interpreted both by myself and the radiologist and we agree. Discharge Plan Triage Chief Complaint: Fever ED Provider: Chris Ochoa Dx/Rx/DC Orders Clinical Impression: Fever, Influenza A, Generalized weakness, History of chronic kidney disease, History of diabetes mellitus Instructions: ED Influenza (Adult) Prescriptions: No Action aspirin [Adult Low Dose Aspirin] 81 mg tablet,delayed release (DR/EC) 81 mg PO QDAY multivitamin [Daily Multi-Vitamin] Tablet 1 tab PO DAILY pravastatin 20 mg tablet 20 mg PO DAILY insulin glargine 100 UNIT/ML solution 40 unit SQ DAILY Januvia 50 mg Tablet 50 mg PO DAILY clopidogrel [Plavix] 75 mg tablet 75 mg PO DAILY Qty: 90 3RF lisinopril 2.5 mg tablet See Rx Instructions .ROUTE .COMPLEX Qty: 90 3RF Dose Instruction: TAKE 1 TABLET DAILY Rx Instructions: TAKE 1 TABLET DAILY Primary Care Provider: Luis Johnson Referrals: Luis Johnson, [Primary Care Provider] - 3-5 Days Activity Restrictions/Additional Instructions: Tylenol for fever. Plenty of fluids and rest today do not get dehydrated. Return if you are feeling a lot worse or too weak to get around her house. Follow-up with your doctor in the next several days to ensure you are improving. Disposition Disposition: Home, Self Care
[2022-12-30] MEDS: Acetaminophen 500 MG Tablet 1000 MG PO (23:17)
[2022-12-30 23:28] LABS: International Normalized Ratio 1.3; Prothrombin Time (Protime)PT. 15.8 SECONDS (11.7-14.9)
[2022-12-30 23:29] LABS: Partial Thromboplast Time 38.9 Seconds (24.1-36.2)
[2022-12-30 23:54] LABS: Absolute Lymphocyte Count 0.68 X10^3/uL (0.83-4.51); Absolute Neutrophil Count 8.8 X10^3/uL (2.0-7.7); Basophil# 0.05 X10^3/uL; Basophil% 0.5 % (0-1); Eosinophil# 0.02 X10^3/uL; Eosinophils% 0.2 % (0-5); Hemoglobin 12.1 g/dL (13.0-16.5); Lymphocyte # 0.68 X10^3/ul (0.83-4.51); Lymphocyte % 6.4 % (19-41); Mean Corp Hgb Conc 31.8 g/dL (32-36); Mean Corpuscular Hgb 27.8 pg (27.0-32.0); Mean Corpuscular Volume 87.2 fL (80-94); Mean Platelet Vol. 10.2 fl (6.2-12.0); Monocyte# 0.96 X10^3/uL; Monocyte% 9.1 % (0-10); NRBC Flagged by Analyzer 0 % (0-5); Neutrophil # 8.83 X10^3/uL (2.7-7.7); Neutrophil % 83.3 % (47-70); Platelet Count 210 K/mm3 (150-450); RBC Distribution Width CV 15.9 % (11.6-14.6); RBC Distribution Width SD 50.5 fl (35.1-43.9); Red Blood Count 4.36 M/mm3 (4.6-6.2); White Blood Count 10.6 K/mm3 (4.4-11.0)
[2022-12-30 23:57] LABS: Lactic Acid 1.4 mmol/L (0.4-1.9)
[2022-12-31 00:02] LABS: ALB/GLOB Ratio 0.7 RATIO (0.9-2.4); AST(SGOT) 22 U/L (15-37); Alanine Aminotransfer ALT/SGPT 22 U/L (16-61); Albumin, Serum 3.5 g/dL (3.2-5.0); Alkaline Phosphatase 53 U/L (45-117); Anion Gap 7 (5-15); BUN 44 mg/dL (7-18); Calcium,Total 9.2 mg/dL (8.5-10.1); Chloride 102 mmol/L (98-107); EST Glomerular Filtration Rate 35 mL/min (>60); Est Glom Filt Rate - Afr Amer 42 mL/min (>60); Estimated Creatinine Clearance 27.91 ml/min; Globulin 4.7 g/dL (2.2-4.2); Glucose 119 mg/dL (74-106); Potassium 5.2 mmol/L (3.5-5.1); Protein, Total 8.2 g/dL (6.4-8.2); Sodium Level 134 mmol/L (136-145)
[2022-12-31 00:10] LABS: Bacteria 0 SEEN /hpf (None Seen); Mucous, Urine 0 SEEN /hpf (<or=2+); Red Blood Cells-Urine 0 SEEN /hpf (0-5); Squamous Epithelial Cells - UA 0 SEEN /hpf (0-5)
[2022-12-31 00:16] LABS: Color, Urine Yellow (Yellow); Glucose, Dipstick Normal (Normal); Ketone-Dipstick Negative (Negative); Leukocyte Esterase-Dipstick 25 /ul (Negative); Nitrite-Dipstick Negative (Negative); Occult Blood-Urine 25 /ul (Negative); Protein-Dipstick 100 mg/dl (Negative); Specific Gravity, Urine 1.005 (1.002-1.030); Urine Bilirubin Dipstick Negative (Negative); Urine Clarity Clear (Clear); Urine Urobilinogen Normal (Normal)
[2022-12-31 00:21] VITALS: BP 120/56; PULSE 110; RESP 21; TEMP 37.6; O2SAT 92
[2022-12-31 00:27] LABS: White Blood Cells 0-5 SEEN /hpf (0-5)
[2022-12-31 00:58] VITALS: BP 131/59; PULSE 111; RESP 26; TEMP 37.1; O2SAT 93
[2022-12-31 00:59] VITALS: O2SAT 93
== END 2022-12-31 01:08 | disposition home or self-care (01) ==
PROVIDERS: Emergency Provider Emergency Medicine; PCP Family Medicine; Visit Provider Emergency Medicine
DX: J10.1 Influenza due to other identified influenza virus with other respiratory manifestations (principal); E11.22 Type 2 diabetes mellitus with diabetic chronic kidney disease; E11.42 Type 2 diabetes mellitus with diabetic polyneuropathy; Z79.4 Long term (current) use of insulin; N18.30 Chronic kidney disease, stage 3 unspecified; R53.1 Weakness; I12.9 Hypertensive chronic kidney disease with stage 1 through stage 4 chronic kidney disease, or unspecified chronic kidney disease; I25.10 Atherosclerotic heart disease of native coronary artery without angina pectoris; E78.5 Hyperlipidemia, unspecified; Z86.16 Personal history of COVID-19; Z95.1 Presence of aortocoronary bypass graft; Z79.82 Long term (current) use of aspirin; Z79.899 Other long term (current) drug therapy; Z87.891 Personal history of nicotine dependence
CPT/HCPCS: 71045; 80053; 81001; 83605; 85025; 85610; 85730; 87040; 87086; 87428; 96360; 99285; J7030; A4216

== ENCOUNTER 2023-01-08 13:30 | Outpatient (RCR) | payer MEDICARE, OTHER, SELFPAY ==
[2022-12-18 00:29] VITALS: BP 110/87; PULSE 107; RESP 20; TEMP 35.7
[2022-12-18 13:20] VITALS: BP 144/68; PULSE 107; RESP 20; TEMP 36.2
--- NOTE | 2022-12-18 14:19 | PCM.WC.PN ---
History of Present Illness Date of Service: 12/18/22 Chief Complaint: right medial foot ulcer History of Wound: This 77-year-old male returns to the wound healing clinic for reoccurrence of a right medial foot ulcer. Wound care has been Moistened Cass covered with [place] SAP dressing. Patient diabetic neuropathic. 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 Patient offloading right foot with surgical shoe. Wound culture from 07/18/22 positive for Staphylococcus pseudintermediu, he completed Augmentin. Wound care - He completed 10 applications of Epifix. Collagen hydrogel covered with gauze. Aquaphor to dorsal foot excoriated area. Patient denies constitutional's or pains at this time. No other complaints. Progress of Wound: Right hallux ulcer is stable this week with the Epifix and placing AMD Foam, doubled stack to help prevent pressure on the ulcer. His excoriation on the dorsal aspect of his foot has improved this week. Objective Data Objective Data Vital Signs: Vital Signs Temp Pulse Resp BP 97.2 F L 107 H 20 H 144/68 H 12/18/22 13:20 12/18/22 13:20 12/18/22 13:20 12/18/22 13:20 Charges/Coding Procedures Integumentary 111xxx-113xx: 00271 Mihaela subq tissue 20 sq cm/< Debridement Note Debridement Note Wound debrided: medial foot ulcer Laterality: Right Wound Grade/Stage: Stage III Type of Debridement: Excisional debridement Anesthesia Used: 5% Lidocaine Gel Depth: Down to and including healthy tissue and in the subcutaneous layer Percentage of wound debrided: 100 Instrument Used: 3mm curette and - (1 mm curette) Tissue Removed: Devitalized tissue and slough Severity: Fat Layer Exposed Amount of bleeding with debridement: Mild Bleeding Controlled with: Compression and gauze Patient tolerated procedure: Patient tolerated procedure well Debridement Free Text: Used a 3 mm curette and then a 1 mm curette to help get non viable tissue over the ulcer. Post-Debridement Measurements and Additional Note: Post-Debridement Measurements/Treatment WC - Nurse 1 - General Ulcer Assessment Start: 12/18/22 13:18 Freq: Status: Active Protocol: HEMA Activity Type Activity Date Activity User E-sign Co-sign Detail Recorded Client Recorded Date Recorded By Document 12/18/22 13:20 PL [id number] 12/18/22 13:27 12/18/22 13:20 - Today's Visit Information Type of service Follow-up Visit (Physician/VISITOR SERVICES SPECIALIST ) Arrival Mode Ambulatory Transfer Assistance None Patient Identification Verified (Name & Yes ) Patient Requires Transmission-Based No Precautions Safety Precautions NA Finger Stick Blood Sugar(mg/dl) (if 147 indicated): Blood Sugar Stated by Patient Vital Signs Temperature (97.8 F-99.1 F) 97.2 F L Temperature Source Temporal Pulse Rate (60-100) 107 H Respiratory Rate (12-18) 20 H Blood Pressure (90/60-120/80) 144/68 H Blood Pressure Mean (mm Hg) 93 History Since Last Visit- (Skip if this is Patient's initial visit) Have you changed medications since your No last visit? Any new allergies or adverse reactions No Had a fall/change in ADL's that may No increase risk of falls Signs or symptoms of abuse and/or No neglect since last visit Have you been in the hospital since your No last visit? Has dressing in place as prescribed Yes Has compression in place as prescribed N/A Has offloadiing in place as prescribed Yes Experienced any changes in pain level or No management Pain Scale: 0-10 Numeric Is Patient Pain Free? Yes - Nurse 1 - General Ulcer Measurement Start: 12/18/22 13:18 Freq: Status: Active Protocol: Activity Type Activity Date Activity User E-sign Co-sign Detail Recorded Client Recorded Date Recorded By Document 12/18/22 13:20 [id number] 12/18/22 13:27 12/18/22 13:20 Wound Center Nurse 1 #9 Right Inferior Hallux -Combined with other wound No -Current Size (cm) - Length 0.1 -Current Size (cm) - Width 0.1 -Current Size (cm) - Depth 0.1 -Total Square Cm 0.01 -Photo Taken No -Epithelialization Medium 34-66% -Tunneling No -Undermining/Tunneling No -Circular Undermining No -Exudate Amt Small -Exudate Type Serosanguineous -Granulation Amt Medium (34-66%) -Granulation Quality [place] -Slough/Fibrin No -Necrosis Amt Medium (34-66%) -Necrotic Tissue Type Adherent Slough -Temperature (Anna-wound Skin No Abnormality Appearance) (Pt Warm) -Ulcer Cleansing Rinsed/ Irrigated with Saline -Foul Odor after Cleansing No -Anesthetic Used 5% Lidocaine Gel WC - Nurse 2 - General Ulcer CM Notes Start: 12/18/22 13:18 Freq: Status: Active Protocol: Activity Type Activity Date Activity User E-sign Co-sign Detail Recorded Client Recorded Date Recorded By Document 12/18/22 13:51 [id number] 12/18/22 13:53 DORA 12/18/22 13:51 Wound Center Nurse 2 -Time 13:53 -Correct Patient Yes -Correct Side, Site, Position Yes -Correct Procedure Yes -Procedure Performed Yes -Type of Procedure Debridement -Clinical Debridement Subcutaneous -Tissue Removed Subcutaneous -Post Debridement (cm) - Length 0.4 -Post Debridement (cm) - Width 0.4 -Post Debridement (cm) - Depth 0.2 -Total Square (Post) (cm) 0.16 -Area of Debridement (cm) - Length 0.4 -Area of Debridement (cm) - Width 0.4 -Total Square (Area) (cm) 0.16 -Tunneling No -Undermining/Tunneling No -Circular Undermining No -Wound/Ulcer Outcome Not Healed -Ulcer Cleansing Rinsed/ Irrigated with Saline -Foul Odor after Cleansing No -Bioengineered Tissue No -Bleeding Controlled with Pressure -Treatment Response Procedure Tolerated Well -Offloading Yes -Type of Offloading Surgical Shoe -Debridement - Subq, 1st 20sq cm Yes Pain Scale: 0-10 Numeric Is Patient Pain Free? Yes - Nurse 3 - General Ulcer D/C NN Start: 12/18/22 13:18 Freq: Status: Active Protocol: Activity Type Activity Date Activity User E-sign Co-sign Detail Recorded Client Recorded Date Recorded By Document 12/18/22 14:07 PL [id number] 12/18/22 14:07 PL 12/18/22 14:07 Wound Care Center Nurse 3 #9 Right Inferior Hallux -Primary Dressing Covered/Secured with Dry Gauze, Secured with Tape Pain Scale: 0-10 Numeric Is Patient Pain Free? Yes Assessment/Plan Assessment/Plan (1) Type 2 diabetes mellitus with diabetic polyneuropathy: CODE(S): E11.42 - Type 2 diabetes mellitus with diabetic polyneuropathy (2) Non-pressure chronic ulcer of other part of right foot with fat layer exposed: CODE(S): L97.512 - Non-pressure chronic ulcer of other part of right foot with fat layer exposed (3) History of malignant neoplasm of lung in adulthood: CODE(S): Z85.118 - Personal history of other malignant neoplasm of bronchus and lung PLAN: Plan Patient was evaluated at the wound healing center today.? Wound care - Ten applications of Epifix completed. Collagen hydrogel covered with gauze to the medial foot ulcer daily after washing with soap and water. Apply Aquaphor or Vasoline to the dorsal aspect of foot to moisturize the dry, flaky, excoriated skin. Compression - Single tubigrip Off-loading - Suman shoe has been re-adjusted at the foot and ankle clinic. Also placing the double stacked AMD foam to help prevent pressure on his foot and wrapped with cling. Stressed the importance of off loading and not putting pressure on this portion of his foot. Vascular:? 12/19/21 - Right EULALIA - 1.15, Left EULALIA 1.06.? Right digital 0.74, Left digital 0.71, bilateral triphasic. Venous studies showed bilateral no DVT, Bilateral calf with primary veins with reflux, bilateral SPJ reflux. Wound culture obtained on 07/18/22 positive for Staphylococcus pseudintermediu, he completed Augmentin. Wound culture obtained on 05/18/22 which was positive for Staphylococcus pseudintermediu, Staphylococcus saprophyticus and Anaerobic cocci.? Continue Augmentin. Encouraged high protein diet that is low in carbohydrates and sodium. Follow up one week. Call or come in sooner if develop any questions or concerns.
[2022-12-25 14:53] VITALS: BP 101/51; PULSE 110; RESP 18; TEMP 36.5
--- NOTE | 2022-12-25 15:31 | PN.PCM_ITS ---
History of Present Illness Date of Service: 12/25/22 Chief Complaint: right medial foot ulcer History of Wound: This 77-year-old male returns to the wound healing clinic for reoccurrence of a right medial foot ulcer. Wound care has been Moistened Cass covered with Nebo SAP dressing. Patient diabetic neuropathic. 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 Patient offloading right foot with surgical shoe. Wound culture from 07/18/22 positive for Staphylococcus pseudintermediu, he completed Augmentin. Wound care - He completed 10 applications of Epifix. Moistened Cass covered with gauze. Patient denies constitutional's or pains at this time. No other complaints. Progress of Wound: Right hallux ulcer is stable this week. He had a little more callus surrounding the ulcer. He is too unsteady on his feet to wear a total contact cast to completely off load him. Continue the double stacked AMD foam. Objective Data Objective Data Vital Signs: Vital Signs Temp Pulse Resp BP 97.7 F L 110 H 18 101/51 L 12/25/22 14:53 12/25/22 14:53 12/25/22 14:53 12/25/22 14:53 Charges/Coding Procedures Integumentary [id number]: [id number] Mihaela subq tissue 20 sq cm/< Debridement Note Debridement Note Wound debrided: medial foot ulcer Laterality: Right Wound Grade/Stage: Stage III Type of Debridement: Excisional debridement Anesthesia Used: 5% Lidocaine Gel Depth: Down to and including healthy tissue and in the subcutaneous layer Percentage of wound debrided: 100 Instrument Used: #15 blade and - (1 mm curette) Tissue Removed: Devitalized tissue and slough Severity: Fat Layer Exposed Amount of bleeding with debridement: Mild Bleeding Controlled with: Compression and gauze Patient tolerated procedure: Patient tolerated procedure well Debridement Free Text: Used a #15 blade to removed the extra callus surrounding the ulcer. Post-Debridement Measurements and Additional Note: Post-Debridement Measurements/Treatment WC - Nurse 1 - General Ulcer Assessment Start: 12/18/22 13:18 Freq: Status: Active Protocol: URBAN.LOWEXT Activity Type Activity Date Activity User E-sign Co-sign Detail Recorded Client Recorded Date Recorded By Document 12/18/22 13:20 PL [id number] 12/18/22 13:27 PL Document 12/25/22 14:53 [id number] 12/25/22 14:54 12/18/22 12/25/22 13:20 14:53 - Today's Visit Information Type of service Follow-up Visit Follow-up Visit (Physician/SUPERVISOR MULTIFOCAL LENS (Physician/SUPERVISOR MULTIFOCAL LENS ) ) Arrival Mode Ambulatory Ambulatory Transfer Assistance None Accompanied by DIL Patient Identification Verified (Name & Yes Yes ) Patient Requires Transmission-Based No No Precautions Safety Precautions NA Finger Stick Blood Sugar(mg/dl) (if 147 indicated): Blood Sugar Stated by Patient Vital Signs Temperature (97.8 F-99.1 F) 97.2 F L 97.7 F L Temperature Source Temporal Temporal Pulse Rate (60-100) 107 H 110 H Pulse Location Monitor Respiratory Rate (12-18) 20 H 18 Respiratory rate source Observation Blood Pressure (90/60-120/80) 144/68 H 101/51 L Blood Pressure Mean (mm Hg) 93 67 Source Monitor Position Semi-Fowlers Blood Pressure Location Left Arm History Since Last Visit- (Skip if this is Patient's initial visit) Have you changed medications since your No No last visit? Any new allergies or adverse reactions No No Had a fall/change in ADL's that may No No increase risk of falls Signs or symptoms of abuse and/or No No neglect since last visit Have you been in the hospital since your No No last visit? Has dressing in place as prescribed Yes Yes Has compression in place as prescribed N/A N/A Has offloadiing in place as prescribed Yes Yes Experienced any changes in pain level or No No management Left Footwear Regular Shoe Right Footwear Surgical Shoe with pressure relief insole Pain Scale: 0-10 Numeric Is Patient Pain Free? Yes Yes - Nurse 1 - General Ulcer Measurement Start: 12/18/22 13:18 Freq: Status: Active Protocol: Activity Type Activity Date Activity User E-sign Co-sign Detail Recorded Client Recorded Date Recorded By Document 12/18/22 13:20 PL [id number] 12/18/22 13:27 PL Document 12/25/22 14:53 [id number] 12/25/22 14:54 DORA 12/18/22 12/25/22 13:20 14:53 Wound Center Nurse 1 #9 Right Inferior Hallux -Combined with other wound No No -Current Size (cm) - Length 0.1 0.1 -Current Size (cm) - Width 0.1 0.1 -Current Size (cm) - Depth 0.1 0.1 -Total Square Cm 0.01 0.01 -Photo Taken No Yes -Epithelialization Medium 34-66% Medium 34-66% -Tunneling No No -Undermining/Tunneling No No -Circular Undermining No No -Exudate Amt Small None Present -Exudate Type Serosanguineous -Wound Margin Indistinct, Non -Visible -Granulation Amt Medium (34-66%) Small (1-33%) -Granulation Quality Rains -Slough/Fibrin No Yes -Necrosis Amt Medium (34-66%) Large (67-100%) -Necrotic Tissue Type Adherent Slough Adherent Slough -Structure Exposed N/A -Texture (Anna-wound Skin Appearance) Assessed -Moisture (Anna-wound Skin Appearance) Assessed,Dry/ Scaly -Color (Anna-wound Skin Appearance) Assessed -Temperature (Anna-wound Skin No Abnormality No Abnormality Appearance) (Pt Warm) (Pt Warm) -Tenderness on Palpation (Anna-wound No Skin Appearance) -Ulcer Cleansing Rinsed/ Wound Cleanser Irrigated with Saline -Foul Odor after Cleansing No -Anesthetic Used 5% Lidocaine Gel Lower Limb Edema Present NA WC - Nurse 2 - General Ulcer CM Notes Start: 12/18/22 13:18 Freq: Status: Active Protocol: Activity Type Activity Date Activity User E-sign Co-sign Detail Recorded Client Recorded Date Recorded By Document 12/18/22 13:51 [id number] 12/18/22 13:53 Document 12/25/22 15:00 [id number] 12/25/22 15:10 12/18/22 12/25/22 13:51 15:00 Wound Center Nurse 2 #9 Right Inferior Hallux -Time 13:53 15:01 -Correct Patient Yes Yes -Correct Side, Site, Position Yes Yes -Correct Procedure Yes Yes -Procedure Performed Yes Yes -Type of Procedure Debridement Debridement -Clinical Debridement Subcutaneous Subcutaneous -Tissue Removed Subcutaneous Subcutaneous -Post Debridement (cm) - Length 0.4 0.5 -Post Debridement (cm) - Width 0.4 0.5 -Post Debridement (cm) - Depth 0.2 0.2 -Total Square (Post) (cm) 0.16 0.25 -Area of Debridement (cm) - Length 0.4 0.5 -Area of Debridement (cm) - Width 0.4 0.5 -Total Square (Area) (cm) 0.16 0.25 -Tunneling No No -Undermining/Tunneling No No -Circular Undermining No No -Wound/Ulcer Outcome Not Healed Not Healed -Ulcer Cleansing Rinsed/ Rinsed/ Irrigated with Irrigated with Saline Saline -Foul Odor after Cleansing No No -Bioengineered Tissue No No -Bleeding Controlled with Pressure Pressure -Treatment Response Procedure Procedure Tolerated Well Tolerated Well -Offloading Yes Yes -Type of Offloading Surgical Shoe Surgical Shoe -Debridement - Subq, 1st 20sq cm Yes Yes Pain Scale: 0-10 Numeric Is Patient Pain Free? Yes Yes - Nurse 3 - General Ulcer D/C NN Start: 12/18/22 13:18 Freq: Status: Active Protocol: Activity Type Activity Date Activity User E-sign Co-sign Detail Recorded Client Recorded Date Recorded By Document 12/18/22 14:07 PL [id number] 12/18/22 14:07 PL Document 12/25/22 15:20 DL [id number] 12/25/22 15:20 DL 12/18/22 12/25/22 14:07 15:20 Wound Care Center Nurse 3 #9 Right Inferior Hallux -Ulcer Cleansing Rinsed/ Irrigated with Saline -Foul Odor after Cleansing No -Primary Dressing Applied Promogran Cass Matter -Primary Dressing Covered/Secured with Dry Gauze, Dry Gauze, Secured with Secured with Tape Tape -Promogran Cass Matter 1 Treatment Response Procedure Tolerated Well Pain Scale: 0-10 Numeric Is Patient Pain Free? Yes Yes - Visit Discharge Discharge Condition Stable Ambulatory Status Ambulatory,Cane Transportation Private Auto Assessment/Plan Assessment/Plan (1) Type 2 diabetes mellitus with diabetic polyneuropathy: CODE(S): E11.42 - Type 2 diabetes mellitus with diabetic polyneuropathy (2) Non-pressure chronic ulcer of other part of right foot with fat layer exposed: CODE(S): L97.512 - Non-pressure chronic ulcer of other part of right foot with fat layer exposed (3) History of malignant neoplasm of lung in adulthood: CODE(S): Z85.118 - Personal history of other malignant neoplasm of bronchus and lung PLAN: Plan Patient was evaluated at the wound healing center today.? Wound care - Ten applications of Epifix completed. Moistened Cass covered with gauze to the medial foot ulcer daily after washing with soap and water. Apply Aquaphor or Vasoline to the dorsal aspect of foot to moisturize the dry, flaky, excoriated skin. Compression - Single tubigrip Off-loading - Suman shoe has been re-adjusted at the foot and ankle clinic. Also placing the double stacked AMD foam to help prevent pressure on his foot and wrapped with cling. Discussed placing a TCC on him but he is not steady on his feet normally, therefore a TCC would be hazardous for him. Stressed the importance of off loading and not putting pressure on this portion of his foot. Vascular:? 12/19/21 - Right EULALIA - 1.15, Left EULALIA 1.06.? Right digital 0.74, Left digital 0.71, bilateral triphasic. Venous studies showed bilateral no DVT, Bilateral calf with primary veins with reflux, bilateral SPJ reflux. Wound culture obtained on 07/18/22 positive for Staphylococcus pseudintermediu, he completed Augmentin. Wound culture obtained on 05/18/22 which was positive for Staphylococcus pseudintermediu, Staphylococcus saprophyticus and Anaerobic cocci.? Continue Augmentin. Encouraged high protein diet that is low in carbohydrates and sodium. Follow up two weeks. Call or come in sooner if develop any questions or concerns.
[2023-01-08 13:37] VITALS: BP 121/46; PULSE 111; TEMP 35.9
--- NOTE | 2023-01-08 14:07 | PCM.WC.PN ---
History of Present Illness Date of Service: 01/08/23 Chief Complaint: right medial foot ulcer History of Wound: This 77-year-old male returns to the wound healing clinic for reoccurrence of a right medial foot ulcer. Wound care has been Moistened Cass covered with [place] SAP dressing. Patient diabetic neuropathic. 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 Patient offloading right foot with surgical shoe. Wound culture from 07/18/22 positive for Staphylococcus pseudintermediu, he completed Augmentin. Wound care - He completed 10 applications of Epifix. Moistened Cass covered with adaptic and topped with gauze. Patient denies constitutional's or pains at this time. No other complaints. Progress of Wound: Right hallux ulcer is stable this week. He had more callus surrounding the ulcer. He states that he is wearing slipper socks at home so the only pressure is when he walks. He wears a [place] shoe when he leaves his home. He is too unsteady on his feet to wear a total contact cast to completely off load him. Continue the double stacked AMD foam.Will obtain a culture of the ulcer since he has a plateau in the healing process of the ulcer. Objective Data Objective Data Vital Signs: Vital Signs Temp Pulse Resp BP 96.7 F L 111 H 18 121/46 H 01/08/23 13:37 01/08/23 13:37 12/25/22 14:53 01/08/23 13:37 Charges/Coding Procedures Integumentary 111xxx-113xx: [id number] Mihaela subq tissue 20 sq cm/< Debridement Note Debridement Note Wound debrided: medial foot ulcer Laterality: Right Wound Grade/Stage: Stage III Type of Debridement: Excisional debridement Anesthesia Used: 5% Lidocaine Gel Depth: Down to and including healthy tissue and in the subcutaneous layer Percentage of wound debrided: 100 Instrument Used: 3mm curette Tissue Removed: Devitalized tissue and slough Severity: Fat Layer Exposed Amount of bleeding with debridement: Mild Bleeding Controlled with: Compression and gauze Patient tolerated procedure: Patient tolerated procedure well Post-Debridement Measurements and Additional Note: Post-Debridement Measurements/Treatment URBAN - Nurse 1 - General Ulcer Assessment Start: 12/18/22 13:18 Freq: Status: Active Protocol: HEMA Activity Type Activity Date Activity User E-sign Co-sign Detail Recorded Client Recorded Date Recorded By Document 12/18/22 13:20 PL [id number] 12/18/22 13:27 PL Document 12/25/22 14:53 [id number] 12/25/22 14:54 JF Document 01/08/23 13:37 AK [id number] 01/08/23 13:39 AK 12/18/22 12/25/22 01/08/23 13:20 14:53 13:37 - Today's Visit Information Type of service Follow-up Visit Follow-up Visit Follow-up Visit (Physician/WILDLIFE PROTECTOR (Physician/WILDLIFE PROTECTOR (Physician/WILDLIFE PROTECTOR ) ) ) Arrival Mode Ambulatory Ambulatory Ambulatory Transfer Assistance None Accompanied by DIL Patient Identification Verified (Name & Yes Yes Yes ) Patient Requires Transmission-Based No No No Precautions Safety Precautions NA NA Finger Stick Blood Sugar(mg/dl) (if 147 indicated): Blood Sugar Stated by Patient Vital Signs Temperature (97.8 F-99.1 F) 97.2 F L 97.7 F L 96.7 F L Temperature Source Temporal Temporal Temporal Pulse Rate (60-100) 107 H 110 H 111 H Pulse Location Monitor Respiratory Rate (12-18) 20 H 18 Respiratory rate source Observation Blood Pressure (90/60-120/80) 144/68 H 101/51 L 121/46 H Blood Pressure Mean (mm Hg) 93 67 71 Source Monitor Position Semi-Fowlers Blood Pressure Location Left Arm History Since Last Visit- (Skip if this is Patient's initial visit) Have you changed medications since your No No No last visit? Any new allergies or adverse reactions No No No Had a fall/change in ADL's that may No No No increase risk of falls Signs or symptoms of abuse and/or No No No neglect since last visit Have you been in the hospital since your No No No last visit? Has dressing in place as prescribed Yes Yes Yes Has compression in place as prescribed N/A N/A N/A Has offloadiing in place as prescribed Yes Yes N/A Experienced any changes in pain level or No No No management Left Footwear Regular Shoe Regular Shoe Right Footwear Surgical Shoe Regular Shoe with pressure relief insole Pain Scale: 0-10 Numeric Is Patient Pain Free? Yes Yes Yes - Nurse 1 - General Ulcer Measurement Start: 12/18/22 13:18 Freq: Status: Active Protocol: Activity Type Activity Date Activity User E-sign Co-sign Detail Recorded Client Recorded Date Recorded By Document 12/18/22 13:20 PL [id number] 12/18/22 13:27 PL Document 12/25/22 14:53 [id number] 12/25/22 14:54 JF Document 01/08/23 13:37 AK [id number] 01/08/23 13:39 AK 12/18/22 12/25/22 01/08/23 13:20 14:53 13:37 Wound Center Nurse 1 #9 Right Inferior Hallux -Combined with other wound No No No -Current Size (cm) - Length 0.1 0.1 0.2 -Current Size (cm) - Width 0.1 0.1 0.2 -Current Size (cm) - Depth 0.1 0.1 0.5 -Total Square Cm 0.01 0.01 0.04 -Photo Taken No Yes Yes -Epithelialization Medium 34-66% Medium 34-66% -Tunneling No No No -Undermining/Tunneling No No No -Circular Undermining No No No -Change in Wound Grade/Stage No -Exudate Amt Small None Present Medium -Exudate Type Serosanguineous Serosanguineous -Wound Margin Indistinct, Non Distinct, -Visible Outline Attached -Granulation Amt Medium (34-66%) Small (1-33%) Medium (34-66%) -Granulation Quality [place] Pale -Slough/Fibrin No Yes Yes -Necrosis Amt Medium (34-66%) Large (67-100%) Medium (34-66%) -Necrotic Tissue Type Adherent Slough Adherent Slough Adherent Slough -Structure Exposed N/A N/A -Texture (Anna-wound Skin Appearance) Assessed No Abnormality, Assessed -Moisture (Anna-wound Skin Appearance) Assessed,Dry/ No Abnormality, Scaly Assessed -Color (Anna-wound Skin Appearance) Assessed Assessed, Hemosiderin Staining -Temperature (Anna-wound Skin No Abnormality No Abnormality No Abnormality Appearance) (Pt Warm) (Pt Warm) (Pt Warm) -Tenderness on Palpation (Anna-wound No No Skin Appearance) -Ulcer Cleansing Rinsed/ Wound Cleanser Rinsed/ Irrigated with Irrigated with Saline Saline -Foul Odor after Cleansing No No -Anesthetic Used 5% Lidocaine 5% Lidocaine Gel Gel Lower Limb Edema Present NA WC - Nurse 2 - General Ulcer CM Notes Start: 12/18/22 13:18 Freq: Status: Active Protocol: Activity Type Activity Date Activity User E-sign Co-sign Detail Recorded Client Recorded Date Recorded By Document 12/18/22 13:51 [id number] 12/18/22 13:53 Document 12/25/22 15:00 [id number] 12/25/22 15:10 Document 01/08/23 14:01 [id number] 01/08/23 14:02 12/18/22 12/25/22 01/08/23 13:51 15:00 14:01 Wound Center Nurse 2 #9 Right Inferior Hallux -Time 13:53 15:01 14:02 -Correct Patient Yes Yes Yes -Correct Side, Site, Position Yes Yes Yes -Correct Procedure Yes Yes Yes -Procedure Performed Yes Yes Yes -Type of Procedure Debridement Debridement Debridement -Clinical Debridement Subcutaneous Subcutaneous Subcutaneous -Tissue Removed Subcutaneous Subcutaneous Subcutaneous -Post Debridement (cm) - Length 0.4 0.5 0.5 -Post Debridement (cm) - Width 0.4 0.5 0.5 -Post Debridement (cm) - Depth 0.2 0.2 0.2 -Total Square (Post) (cm) 0.16 0.25 0.25 -Area of Debridement (cm) - Length 0.4 0.5 0.5 -Area of Debridement (cm) - Width 0.4 0.5 0.5 -Total Square (Area) (cm) 0.16 0.25 0.25 -Tunneling No No No -Undermining/Tunneling No No No -Circular Undermining No No No -Wound/Ulcer Outcome Not Healed Not Healed Not Healed -Ulcer Cleansing Rinsed/ Rinsed/ Rinsed/ Irrigated with Irrigated with Irrigated with Saline Saline Saline -Foul Odor after Cleansing No No No -Bioengineered Tissue No No No -Bleeding Controlled with Pressure Pressure Pressure -Treatment Response Procedure Procedure Procedure Tolerated Well Tolerated Well Tolerated Well -Offloading Yes Yes Yes -Type of Offloading Surgical Shoe Surgical Shoe Surgical Shoe -Debridement - Subq, 1st 20sq cm Yes Yes Yes Pain Scale: 0-10 Numeric Is Patient Pain Free? Yes Yes Yes - Nurse 3 - General Ulcer D/C NN Start: 12/18/22 13:18 Freq: Status: Active Protocol: Activity Type Activity Date Activity User E-sign Co-sign Detail Recorded Client Recorded Date Recorded By Document 12/18/22 14:07 PL [id number] 12/18/22 14:07 PL Document 12/25/22 15:20 DL [id number] 12/25/22 15:20 DL 12/18/22 12/25/22 14:07 15:20 Wound Care Center Nurse 3 #9 Right Inferior Hallux -Ulcer Cleansing Rinsed/ Irrigated with Saline -Foul Odor after Cleansing No -Primary Dressing Applied Promogran [place] Matter -Primary Dressing Covered/Secured with Dry Gauze, Dry Gauze, Secured with Secured with Tape Tape -Promogran [place] Matter 1 Treatment Response Procedure Tolerated Well Pain Scale: 0-10 Numeric Is Patient Pain Free? Yes Yes WC - Visit Discharge Discharge Condition Stable Ambulatory Status Ambulatory,Cane Transportation Private Auto Assessment/Plan Assessment/Plan (1) Type 2 diabetes mellitus with diabetic polyneuropathy: CODE(S): E11.42 - Type 2 diabetes mellitus with diabetic polyneuropathy (2) Non-pressure chronic ulcer of other part of right foot with fat layer exposed: CODE(S): L97.512 - Non-pressure chronic ulcer of other part of right foot with fat layer exposed (3) History of malignant neoplasm of lung in adulthood: CODE(S): Z85.118 - Personal history of other malignant neoplasm of bronchus and lung PLAN: Plan Patient was evaluated at the wound healing center today.? Wound care - Ten applications of Epifix completed. Moistened Cass covered with adaptic and topped with gauze to the medial foot ulcer daily after washing with soap and water. Apply Aquaphor or Vasoline to the dorsal aspect of foot to moisturize the dry, flaky, excoriated skin. Compression - Single tubigrip Off-loading - Suman shoe has been re-adjusted at the foot and ankle clinic. Also placing the double stacked AMD foam to help prevent pressure on his foot and wrapped with cling. Discussed placing a TCC on him but he is not steady on his feet normally, therefore a TCC would be hazardous for him. Stressed the importance of off loading and not putting pressure on this portion of his foot. Vascular:? 12/19/21 - Right EULALIA - 1.15, Left EULALIA 1.06.? Right digital 0.74, Left digital 0.71, bilateral triphasic. Venous studies showed bilateral no DVT, Bilateral calf with primary veins with reflux, bilateral SPJ reflux. A wound culture was obtained today, 01/08/23 since he has had a plateau in his healing. A positive culture will necessitate antibiotic therapy. Wound culture obtained on 07/18/22 positive for Staphylococcus pseudintermediu, he completed Augmentin. Wound culture obtained on 05/18/22 which was positive for Staphylococcus pseudintermediu, Staphylococcus saprophyticus and Anaerobic cocci.? Continue Augmentin. Encouraged high protein diet that is low in carbohydrates and sodium. Follow up two weeks. Call or come in sooner if develop any questions or concerns.
== END 2023-01-17 23:59 | disposition home or self-care (01) ==
LOC: WC 13:30
PROVIDERS: PCP Family Medicine; Visit Provider Nurse Practitioner Family
DX: L97.512 Non-pressure chronic ulcer of other part of right foot with fat layer exposed (principal); E11.42 Type 2 diabetes mellitus with diabetic polyneuropathy; Z85.118 Personal history of other malignant neoplasm of bronchus and lung
CPT/HCPCS: 11042; 87070; 87075; 87077; 87186; 87205

== ENCOUNTER 2023-02-05 13:00 | Outpatient (RCR) | payer MEDICARE, OTHER, SELFPAY ==
[2023-01-18 00:27] VITALS: BP 121/46; PULSE 111; RESP 18; TEMP 35.9
[2023-01-22 13:45] VITALS: BP 129/69; PULSE 112; RESP 67; TEMP 36.1
--- NOTE | 2023-01-22 15:29 | PN.PCM_ITS ---
History of Present Illness Date of Service: 01/22/23 Chief Complaint: right medial foot ulcer History of Wound: This 78-year-old male returns to the wound healing clinic for reoccurrence of a right medial foot ulcer. Wound care has been Moistened Cass covered with [place] SAP dressing. Patient diabetic neuropathic. 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 Patient offloading right foot with surgical shoe. Wound culture from 07/18/22 positive for Staphylococcus pseudintermediu, he completed Augmentin. Wound culture from 01/08/23 positive for Staphylococcus pseudintermediu, he is treated with Augmentin BID. Wound care - He completed 10 applications of Epifix. Moistened Cass covered with adaptic and topped with gauze. Patient denies constitutional's or pains at this time. No other complaints. Progress of Wound: Right hallux ulcer has dry scabbing/callus surrounding the ulcer. Once that was removed, the ulcer itself is stable. Objective Data Objective Data Vital Signs: Vital Signs Temp Pulse Resp BP 97 F L 112 H 67 H 129/69 H 01/22/23 13:45 01/22/23 13:45 01/22/23 13:45 01/22/23 13:45 Charges/Coding Procedures Integumentary 111xxx-113xx: [id number] Mihaela subq tissue 20 sq cm/< Debridement Note Debridement Note Wound debrided: medial foot ulcer Laterality: Right Wound Grade/Stage: Stage III Type of Debridement: Excisional debridement Anesthesia Used: 5% Lidocaine Gel Depth: Down to and including healthy tissue and in the subcutaneous layer Percentage of wound debrided: 100 Instrument Used: 3mm curette and #15 blade Tissue Removed: Devitalized tissue and slough Severity: Fat Layer Exposed Amount of bleeding with debridement: Mild Bleeding Controlled with: Compression and gauze Patient tolerated procedure: Patient tolerated procedure well Debridement Free Text: Removed dried, callus area surrounding the ulcer. Post-Debridement Measurements and Additional Note: Post-Debridement Measurements/Treatment WC - Nurse 1 - General Ulcer Assessment Start: 01/22/23 13:42 Freq: Status: Active Protocol: BAHMANEXTyler Activity Type Activity Date Activity User E-sign Co-sign Detail Recorded Client Recorded Date Recorded By Document 01/22/23 13:45 DL [id number] 01/22/23 13:48 DL 01/22/23 13:45 - Today's Visit Information Type of service Follow-up Visit (Physician/APPELLATE LAW CLERK ) Arrival Mode Ambulatory Transfer Assistance None Patient Identification Verified (Name & Yes ) Patient Requires Transmission-Based No Precautions Vital Signs Temperature (97.8 F-99.1 F) 97 F L Temperature Source Temporal Pulse Rate (60-100) 112 H Pulse Location Monitor Respiratory Rate (12-18) 67 H Respiratory rate source Observation Blood Pressure (90/60-120/80) 129/69 H Blood Pressure Mean (mm Hg) 89 History Since Last Visit- (Skip if this is Patient's initial visit) Have you changed medications since your No last visit? Any new allergies or adverse reactions No Had a fall/change in ADL's that may No increase risk of falls Signs or symptoms of abuse and/or No neglect since last visit Have you been in the hospital since your No last visit? Has dressing in place as prescribed Yes Has compression in place as prescribed N/A Has offloadiing in place as prescribed Yes Experienced any changes in pain level or No management Pain Scale: 0-10 Numeric Is Patient Pain Free? Yes - Nurse 1 - General Ulcer Measurement Start: 01/22/23 13:42 Freq: Status: Active Protocol: Activity Type Activity Date Activity User E-sign Co-sign Detail Recorded Client Recorded Date Recorded By Document 01/22/23 13:45 DL [id number] 01/22/23 13:48 DL 01/22/23 13:45 Wound Center Nurse 1 #9 Right Inferior Hallux -Current Size (cm) - Length 0.3 -Current Size (cm) - Width 0.3 -Current Size (cm) - Depth 0.3 -Total Square Cm 0.09 -Photo Taken Yes -Maximum Distance #2 (cm) 0.3 -Circular Undermining Yes -Exudate Amt Medium -Exudate Type Serosanguineous -Wound Margin Distinct, Outline Attached -Granulation Amt None Present (0 %) -Necrosis Amt Small (1-33%) -Necrotic Tissue Type Adherent Slough -Structure Exposed N/A -Texture (Anna-wound Skin Appearance) Scarring -Moisture (Anna-wound Skin Appearance) Maceration -Color (Anna-wound Skin Appearance) No Abnormality -Temperature (Anna-wound Skin No Abnormality Appearance) (Pt Warm) -Tenderness on Palpation (Anna-wound No Skin Appearance) -Ulcer Cleansing Rinsed/ Irrigated with Saline -Foul Odor after Cleansing No -Anesthetic Used 5% Lidocaine Gel - Nurse 2 - General Ulcer CM Notes Start: 01/22/23 13:42 Freq: Status: Active Protocol: Activity Type Activity Date Activity User E-sign Co-sign Detail Recorded Client Recorded Date Recorded By Document 01/22/23 14:22 DORA [id number] 01/22/23 14:23 01/22/23 14:22 Wound Center Nurse 2 -Time 14:22 -Correct Patient Yes -Correct Side, Site, Position Yes -Correct Procedure Yes -Procedure Performed Yes -Type of Procedure Debridement -Clinical Debridement Subcutaneous -Tissue Removed Subcutaneous -Post Debridement (cm) - Length 0.5 -Post Debridement (cm) - Width 0.5 -Post Debridement (cm) - Depth 0.2 -Total Square (Post) (cm) 0.25 -Area of Debridement (cm) - Length 0.5 -Area of Debridement (cm) - Width 0.5 -Total Square (Area) (cm) 0.25 -Tunneling No -Undermining/Tunneling No -Circular Undermining No -Wound/Ulcer Outcome Not Healed -Ulcer Cleansing Rinsed/ Irrigated with Saline -Foul Odor after Cleansing No -Bioengineered Tissue No -Bleeding Controlled with Pressure -Treatment Response Procedure Tolerated Well -Offloading Yes -Type of Offloading Surgical Shoe -Debridement - Subq, 1st 20sq cm Yes Pain Scale: 0-10 Numeric Is Patient Pain Free? Yes - Nurse 3 - General Ulcer D/C NN Start: 01/22/23 13:42 Freq: Status: Active Protocol: Activity Type Activity Date Activity User E-sign Co-sign Detail Recorded Client Recorded Date Recorded By Document 01/22/23 14:30 [id number] 01/22/23 14:31 DL 01/22/23 14:30 Wound Care Center Nurse 3 #9 Right Inferior Hallux -Ulcer Cleansing Rinsed/ Irrigated with Saline -Foul Odor after Cleansing No -Other Dressing bactroban -Primary Dressing Covered/Secured with Dry Gauze, Secured with Tape Treatment Response Procedure Tolerated Well Pain Scale: 0-10 Numeric Is Patient Pain Free? Yes - Visit Discharge Discharge Condition Stable Ambulatory Status Ambulatory,Cane Transportation Private Auto Facility Type Home Health Orders Sent Yes Assessment/Plan Assessment/Plan (1) Type 2 diabetes mellitus with diabetic polyneuropathy: CODE(S): E11.42 - Type 2 diabetes mellitus with diabetic polyneuropathy (2) Non-pressure chronic ulcer of other part of right foot with fat layer exposed: CODE(S): L97.512 - Non-pressure chronic ulcer of other part of right foot with fat layer exposed (3) History of malignant neoplasm of lung in adulthood: CODE(S): Z85.118 - Personal history of other malignant neoplasm of bronchus and lung PLAN: Plan Patient was evaluated at the wound healing center today.? Wound care - Ten applications of Epifix completed. Bactroban ointment covered with gauze to the medial foot ulcer daily after washing with soap and water. Apply Aquaphor or Vasoline to the dorsal aspect of foot to moisturize the dry, flaky, excoriated skin. Compression - Single tubigrip Off-loading - Suman shoe has been re-adjusted at the foot and ankle clinic. Also placing the double stacked AMD foam to help prevent pressure on his foot and wrapped with cling. Discussed placing a TCC on him but he is not steady on his feet normally, therefore a TCC would be hazardous for him. Stressed the importance of off loading and not putting pressure on this portion of his foot. Vascular:? 12/19/21 - Right EULALIA - 1.15, Left EULALIA 1.06.? Right digital 0.74, Left digital 0.71, bilateral triphasic. Venous studies showed bilateral no DVT, Bilateral calf with primary veins with reflux, bilateral SPJ reflux. A wound culture was obtained on 01/08/23 which was positive for Staphylococcus pseudintermediu. He was started on Augmentin. Wound culture obtained on 07/18/22 positive for Staphylococcus pseudintermediu, he completed Augmentin. Wound culture obtained on 05/18/22 which was positive for Staphylococcus pseudintermediu, Staphylococcus saprophyticus and Anaerobic cocci.? Continue Augmentin. Encouraged high protein diet that is low in carbohydrates and sodium. Follow up two weeks. Call or come in sooner if develop any questions or concerns.
[2023-02-05 13:10] VITALS: BP 160/76; PULSE 109; RESP 18; TEMP 36.4
--- NOTE | 2023-02-05 13:59 | PCM.WC.PN ---
History of Present Illness Date of Service: 02/05/23 Chief Complaint: right medial foot ulcer History of Wound: This 78-year-old male returns to the wound healing clinic for reoccurrence of a right medial foot ulcer. Wound care has been Moistened Cass covered with [place] SAP dressing. Patient diabetic neuropathic. 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 Patient offloading right foot with surgical shoe. Wound culture from 07/18/22 positive for Staphylococcus pseudintermediu, he completed Augmentin. Wound culture from 01/08/23 positive for Staphylococcus pseudintermediu, he is treated with Augmentin BID. Wound care - He completed 10 applications of Epifix. Moistened Cass covered with adaptic and topped with gauze. Patient denies constitutional's or pains at this time. No other complaints. Progress of Wound: Right hallux ulcer is slightly smaller, he continues to have thickened callus that forms surrounding the ulcer. He is tolerating the Augmentin for his positive wound cultures. Objective Data Objective Data Vital Signs: Vital Signs Temp Pulse Resp BP O2 Del Method 97.6 F L 109 H 18 160/76 H Room Air 02/05/23 13:10 02/05/23 13:10 02/05/23 13:10 02/05/23 13:10 02/05/23 13:10 Oxygen Delivery Method Room Air Charges/Coding Procedures Integumentary 111xxx-113xx: 63738 Mihaela subq tissue 20 sq cm/< Debridement Note Debridement Note Wound debrided: medial foot ulcer Laterality: Right Wound Grade/Stage: Stage III Type of Debridement: Excisional debridement Anesthesia Used: 5% Lidocaine Gel Depth: Down to and including healthy tissue and in the subcutaneous layer Percentage of wound debrided: 100 Instrument Used: 3mm curette Tissue Removed: Devitalized tissue and slough Severity: Fat Layer Exposed Amount of bleeding with debridement: Mild Bleeding Controlled with: Compression and gauze Patient tolerated procedure: Patient tolerated procedure well Debridement Free Text: Removed dried, callus area surrounding the ulcer. Post-Debridement Measurements and Additional Note: Post-Debridement Measurements/Treatment URBAN - Nurse 1 - General Ulcer Assessment Start: 01/22/23 13:42 Freq: Status: Active Protocol: HEMA Activity Type Activity Date Activity User E-sign Co-sign Detail Recorded Client Recorded Date Recorded By Document 01/22/23 13:45 DL [id number] 01/22/23 13:48 DL Document 02/05/23 13:10 [facility] [id number] 02/05/23 13:15 [facility] 01/22/23 02/05/23 13:45 13:10 - Today's Visit Information Type of service Follow-up Visit Follow-up Visit (Physician/WHISKEY FILTERER (Physician/WHISKEY FILTERER ) ) Arrival Mode Ambulatory Ambulatory,Cane Transfer Assistance None None Patient Identification Verified (Name & Yes Yes ) Patient Requires Transmission-Based No No Precautions Vital Signs Temperature (97.8 F-99.1 F) 97 F L 97.6 F L Temperature Source Temporal Temporal Pulse Rate (60-100) 112 H 109 H Pulse Location Monitor Monitor Respiratory Rate (12-18) 67 H 18 Respiratory rate source Observation Observation Oxygen Delivery Method Room Air Blood Pressure (90/60-120/80) 129/69 H 160/76 H Blood Pressure Mean (mm Hg) 89 104 Source Monitor Position Sitting Blood Pressure Location Left Arm History Since Last Visit- (Skip if this is Patient's initial visit) Have you changed medications since your No No last visit? Any new allergies or adverse reactions No No Had a fall/change in ADL's that may No No increase risk of falls Signs or symptoms of abuse and/or No No neglect since last visit Have you been in the hospital since your No No last visit? Has dressing in place as prescribed Yes Yes Has compression in place as prescribed N/A N/A Has offloadiing in place as prescribed Yes Yes Experienced any changes in pain level or No No management Left Footwear Diabetic Shoe Right Footwear Surgical Shoe with pressure relief insole Pain Scale: 0-10 Numeric Is Patient Pain Free? Yes Yes - Nurse 1 - General Ulcer Measurement Start: 01/22/23 13:42 Freq: Status: Active Protocol: Activity Type Activity Date Activity User E-sign Co-sign Detail Recorded Client Recorded Date Recorded By Document 01/22/23 13:45 DL [id number] 01/22/23 13:48 DL Document 02/05/23 13:10 [facility] [id number] 02/05/23 13:15 [facility] 01/22/23 02/05/23 13:45 13:10 Wound Center Nurse 1 #9 Right Inferior Hallux -Combined with other wound No -Current Size (cm) - Length 0.3 0.1 -Current Size (cm) - Width 0.3 0.1 -Current Size (cm) - Depth 0.3 0.2 -Total Square Cm 0.09 0.01 -Date of Last Picture (Recall this 02/05/23 field) -Photo Taken Yes Yes -Epithelialization None Present -Tunneling No -Undermining/Tunneling Yes -Undermining/Tunneling Starts (O'clock 12 ) -Undermining/Tunneling Ends (O'clock) 12 -Maximum Distance (cm) 0.2 -Maximum Distance #2 (cm) 0.3 -Circular Undermining Yes Yes -Exudate Amt Medium Small -Exudate Type Serosanguineous Serosanguineous -Wound Margin Distinct, Distinct, Outline Outline Attached Attached -Granulation Amt None Present (0 Large (67-100%) %) -Granulation Quality [place] -Slough/Fibrin Yes -Necrosis Amt Small (1-33%) Small (1-33%) -Necrotic Tissue Type Adherent Slough Adherent Slough -Structure Exposed N/A -Texture (Anna-wound Skin Appearance) Scarring Assessed,Callus ,Scarring -Moisture (Anna-wound Skin Appearance) Maceration Assessed -Color (Anna-wound Skin Appearance) No Abnormality Assessed -Temperature (Anna-wound Skin No Abnormality No Abnormality Appearance) (Pt Warm) (Pt Warm) -Tenderness on Palpation (Anna-wound No No Skin Appearance) -Ulcer Cleansing Rinsed/ Rinsed/ Irrigated with Irrigated with Saline Saline -Foul Odor after Cleansing No No -Anesthetic Used 5% Lidocaine 5% Lidocaine Gel Gel WC - Nurse 2 - General Ulcer CM Notes Start: 01/22/23 13:42 Freq: Status: Active Protocol: Activity Type Activity Date Activity User E-sign Co-sign Detail Recorded Client Recorded Date Recorded By Document 01/22/23 14:22 DORA [id number] 01/22/23 14:23 DORA 01/22/23 14:22 Wound Center Nurse 2 -Time 14:22 -Correct Patient Yes -Correct Side, Site, Position Yes -Correct Procedure Yes -Procedure Performed Yes -Type of Procedure Debridement -Clinical Debridement Subcutaneous -Tissue Removed Subcutaneous -Post Debridement (cm) - Length 0.5 -Post Debridement (cm) - Width 0.5 -Post Debridement (cm) - Depth 0.2 -Total Square (Post) (cm) 0.25 -Area of Debridement (cm) - Length 0.5 -Area of Debridement (cm) - Width 0.5 -Total Square (Area) (cm) 0.25 -Tunneling No -Undermining/Tunneling No -Circular Undermining No -Wound/Ulcer Outcome Not Healed -Ulcer Cleansing Rinsed/ Irrigated with Saline -Foul Odor after Cleansing No -Bioengineered Tissue No -Bleeding Controlled with Pressure -Treatment Response Procedure Tolerated Well -Offloading Yes -Type of Offloading Surgical Shoe -Debridement - Subq, 1st 20sq cm Yes Pain Scale: 0-10 Numeric Is Patient Pain Free? Yes - Nurse 3 - General Ulcer D/C NN Start: 01/22/23 13:42 Freq: Status: Active Protocol: Activity Type Activity Date Activity User E-sign Co-sign Detail Recorded Client Recorded Date Recorded By Document 01/22/23 14:30 DL [id number] 01/22/23 14:31 DL Document 02/05/23 13:49 [facility] [id number] 02/05/23 13:49 [facility] 01/22/23 02/05/23 14:30 13:49 Wound Care Center Nurse 3 #9 Right Inferior Hallux -Ulcer Cleansing Rinsed/ Rinsed/ Irrigated with Irrigated with Saline Saline -Foul Odor after Cleansing No No -Other Dressing bactroban BACTROBAN -Primary Dressing Covered/Secured with Dry Gauze, Dry Gauze, Secured with Secured with Tape Tape -Other Covering APPERTURE PAD Treatment Response Procedure Procedure Tolerated Well Tolerated Well Pain Scale: 0-10 Numeric Is Patient Pain Free? Yes Yes - Visit Discharge Discharge Condition Stable Stable Ambulatory Status Ambulatory,Cane Ambulatory,Cane Transportation Private Auto Private Auto Facility Type Home Health Orders Sent Yes Assessment/Plan Assessment/Plan (1) Type 2 diabetes mellitus with diabetic polyneuropathy: CODE(S): E11.42 - Type 2 diabetes mellitus with diabetic polyneuropathy (2) Non-pressure chronic ulcer of other part of right foot with fat layer exposed: CODE(S): L97.512 - Non-pressure chronic ulcer of other part of right foot with fat layer exposed (3) History of malignant neoplasm of lung in adulthood: CODE(S): Z85.118 - Personal history of other malignant neoplasm of bronchus and lung PLAN: Plan Patient was evaluated at the wound healing center today.? Wound care - Ten applications of Epifix completed. Bactroban ointment covered with gauze to the medial foot ulcer daily after washing with soap and water. Apply Aquaphor or Vasoline to the dorsal aspect of foot to moisturize the dry, flaky, excoriated skin. Compression - Single tubigrip Off-loading - Suman shoe has been re-adjusted at the foot and ankle clinic. Also placing the double stacked AMD foam to help prevent pressure on his foot and wrapped with cling. Discussed placing a TCC on him but he is not steady on his feet normally, therefore a TCC would be hazardous for him. Stressed the importance of off loading and not putting pressure on this portion of his foot. Vascular:? 12/19/21 - Right EULALIA - 1.15, Left EULALIA 1.06.? Right digital 0.74, Left digital 0.71, bilateral triphasic. Venous studies showed bilateral no DVT, Bilateral calf with primary veins with reflux, bilateral SPJ reflux. A wound culture was obtained on 01/08/23 which was positive for Staphylococcus pseudintermediu. He was started on Augmentin. Wound culture obtained on 07/18/22 positive for Staphylococcus pseudintermediu, he completed Augmentin. Wound culture obtained on 05/18/22 which was positive for Staphylococcus pseudintermediu, Staphylococcus saprophyticus and Anaerobic cocci.? Continue Augmentin. Encouraged high protein diet that is low in carbohydrates and sodium. Follow up two weeks. Call or come in sooner if develop any questions or concerns.
== END 2023-02-16 23:59 | disposition home or self-care (01) ==
LOC: WC 13:00
PROVIDERS: PCP Family Medicine; Visit Provider Nurse Practitioner Family
DX: E11.621 Type 2 diabetes mellitus with foot ulcer (principal); L97.512 Non-pressure chronic ulcer of other part of right foot with fat layer exposed; E11.42 Type 2 diabetes mellitus with diabetic polyneuropathy; Z85.118 Personal history of other malignant neoplasm of bronchus and lung
CPT/HCPCS: 11042

== ENCOUNTER → 2023-02-23 | Outpatient (CLI) | payer MEDICARE, OTHER, SELFPAY ==
--- NOTE | 2023-02-23 13:40 | RAD_ITS ---
STUDY: XR Chest 2 Views 02/23/2023 1:52 PM REASON FOR EXAM: Male, 78 years old. CHEST PAIN COUGH, R LUNG CANCER COMPARISON: 12.30.22 TECHNIQUE: XR Chest 2 Views FINDINGS: Small left pleural effusion versus scarring. 22 mm mass in the right upper lobe. There are multiple median sternotomy wires. Enlarged heart size. Normal mediastinum. Normal jairo. Prominent appearing increased interstitial lung markings. Normal visualized pulmonary arteries. There is atherosclerotic calcification of the aortic arch with tortuosity. There are diffuse degenerative changes of the visualized thoracic spine. There is degenerative osteoarthritis of the bilateral shoulders. There is no demonstrated abnormality of the visualized soft tissue structures of the upper abdomen. RAD/Chest PA and Lateral IMPRESSION: Small left pleural effusion versus scarring. 22 mm mass in the right upper lobe. Electronically Signed: Krzysztof Prasad MD at 14:49 EDT ,
== END | disposition home or self-care (01) ==
LOC: MTRAD 13:39
PROVIDERS: PCP Family Medicine; Referring Provider Family Medicine; Visit Provider Family Medicine
DX: R05.9 Cough, unspecified (principal)
CPT/HCPCS: 71046

== ENCOUNTER 2023-03-19 10:15 | Outpatient (RCR) | payer MEDICARE, OTHER, SELFPAY ==
[2023-02-17 01:07] VITALS: BP 160/76; PULSE 109; RESP 18; TEMP 36.4
[2023-02-19 13:34] VITALS: BP 116/62; PULSE 103; RESP 16; TEMP 36.1
--- NOTE | 2023-02-19 14:12 | PCM.WC.PN ---
History of Present Illness Date of Service: 02/19/23 Chief Complaint: right medial foot ulcer History of Wound: This 78-year-old male returns to the wound healing clinic for reoccurrence of a right medial foot ulcer. Patient with diabetic neuropathic. 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 Patient offloading right foot with surgical shoe. Wound culture from 07/18/22 positive for Staphylococcus pseudintermediu, he completed Augmentin. Wound culture from 01/08/23 positive for Staphylococcus pseudintermediu, he completed the Augmentin BID. Vascular:? 12/19/21 - Right EULALIA - 1.15, Left EULALIA 1.06.? Right digital 0.74, Left digital 0.71, bilateral triphasic. Venous studies showed bilateral no DVT, Bilateral calf with primary veins with reflux, bilateral SPJ reflux. Wound care - He completed 10 applications of Epifix. Bactroban ointment covered with adaptic and topped with gauze. Patient denies constitutional's or pains at this time. No other complaints. Progress of Wound: Right hallux ulcer is slightly smaller, he continues to have thickened callus that forms surrounding the ulcer. He completed the Augmentin for his positive wound cultures. He has been wearing the double stacked AMD foam to help prevent pressure on the area. Objective Data Objective Data Vital Signs: Vital Signs Temp Pulse Resp BP 96.9 F L 103 H 16 116/62 02/19/23 13:34 02/19/23 13:34 02/19/23 13:34 02/19/23 13:34 Charges/Coding Procedures Integumentary 111xxx-113xx: 63690 Mihaela subq tissue 20 sq cm/< Debridement Note Debridement Note Wound debrided: medial foot ulcer Laterality: Right Wound Grade/Stage: Stage III Type of Debridement: Excisional debridement Anesthesia Used: 5% Lidocaine Gel Depth: Down to and including healthy tissue and in the subcutaneous layer Percentage of wound debrided: 100 Instrument Used: 3mm curette Tissue Removed: Devitalized tissue and slough Severity: Fat Layer Exposed Amount of bleeding with debridement: Mild Bleeding Controlled with: Compression and gauze Patient tolerated procedure: Patient tolerated procedure well Debridement Free Text: Removed dried, callus area surrounding the ulcer the ulcer is smaller. Post-Debridement Measurements and Additional Note: Post-Debridement Measurements/Treatment WC - Nurse 1 - General Ulcer Assessment Start: 02/19/23 13:34 Freq: Status: Active Protocol: HEMA Activity Type Activity Date Activity User E-sign Co-sign Detail Recorded Client Recorded Date Recorded By Document 02/19/23 13:34 DORA [id number] 02/19/23 13:36 02/19/23 13:34 WC - Today's Visit Information Type of service Follow-up Visit (Physician/CORPORATE PILOT ) Arrival Mode Ambulatory Patient Requires Transmission-Based No Precautions Vital Signs Temperature (97.8 F-99.1 F) 96.9 F L Temperature Source Temporal Pulse Rate (60-100) 103 H Pulse Location Monitor Respiratory Rate (12-18) 16 Respiratory rate source Observation Blood Pressure (90/60-120/80) 116/62 Blood Pressure Mean (mm Hg) 80 Source Monitor Position Semi-Fowlers Blood Pressure Location Left Arm History Since Last Visit- (Skip if this is Patient's initial visit) Have you changed medications since your No last visit? Any new allergies or adverse reactions No Had a fall/change in ADL's that may No increase risk of falls Signs or symptoms of abuse and/or No neglect since last visit Have you been in the hospital since your No last visit? Has dressing in place as prescribed Yes Has compression in place as prescribed Yes Has offloadiing in place as prescribed N/A Experienced any changes in pain level or No management Left Footwear Regular Shoe Right Footwear Surgical Shoe with pressure relief insole Pain Scale: 0-10 Numeric Is Patient Pain Free? Yes - Nurse 1 - General Ulcer Measurement Start: 02/19/23 13:34 Freq: Status: Active Protocol: Activity Type Activity Date Activity User E-sign Co-sign Detail Recorded Client Recorded Date Recorded By Document 02/19/23 13:34 JF [id number] 02/19/23 13:36 DORA 02/19/23 13:34 Wound Center Nurse 1 #9 Right Inferior Hallux -Combined with other wound No -Current Size (cm) - Length 0.1 -Current Size (cm) - Width 0.1 -Current Size (cm) - Depth 0.1 -Total Square Cm 0.01 -Photo Taken No -Epithelialization Large 67-100% -Tunneling No -Undermining/Tunneling No -Circular Undermining No -Exudate Amt None Present -Wound Margin Flat & Intact -Granulation Amt Large (67-100%) -Granulation Quality Red -Slough/Fibrin No -Structure Exposed N/A -Texture (Anna-wound Skin Appearance) Assessed -Moisture (Anna-wound Skin Appearance) Assessed,Dry/ Scaly -Color (Anna-wound Skin Appearance) Assessed -Temperature (Anna-wound Skin No Abnormality Appearance) (Pt Warm) -Tenderness on Palpation (Anna-wound No Skin Appearance) -Ulcer Cleansing Rinsed/ Irrigated with Saline -Foul Odor after Cleansing No Lower Limb Edema Present NA WC - Nurse 2 - General Ulcer CM Notes Start: 02/19/23 13:34 Freq: Status: Active Protocol: Activity Type Activity Date Activity User E-sign Co-sign Detail Recorded Client Recorded Date Recorded By Document 02/19/23 13:37 JF [id number] 02/19/23 13:39 DORA 02/19/23 13:37 Wound Center Nurse 2 #9 Right Inferior Hallux -Time 13:38 -Correct Patient Yes -Correct Side, Site, Position Yes -Correct Procedure Yes -Procedure Performed Yes -Type of Procedure Debridement -Clinical Debridement Subcutaneous -Tissue Removed Subcutaneous -Post Debridement (cm) - Length 0.4 -Post Debridement (cm) - Width 0.4 -Post Debridement (cm) - Depth 0.2 -Total Square (Post) (cm) 0.16 -Area of Debridement (cm) - Length 0.4 -Area of Debridement (cm) - Width 0.4 -Total Square (Area) (cm) 0.16 -Tunneling No -Undermining/Tunneling No -Circular Undermining No -Wound/Ulcer Outcome Not Healed -Ulcer Cleansing Rinsed/ Irrigated with Saline -Foul Odor after Cleansing No -Bioengineered Tissue No -Bleeding Controlled with Pressure -Treatment Response Procedure Tolerated Well -Offloading Yes -Type of Offloading Surgical Shoe -Debridement - Subq, 1st 20sq cm Yes Pain Scale: 0-10 Numeric Is Patient Pain Free? Yes URBAN - Nurse 3 - General Ulcer D/C NN Start: 02/19/23 13:34 Freq: Status: Active Protocol: Activity Type Activity Date Activity User E-sign Co-sign Detail Recorded Client Recorded Date Recorded By Document 02/19/23 13:43 [id number] 02/19/23 13:44 MW 02/19/23 13:43 Wound Care Center Nurse 3 #9 Right Inferior Hallux -Ulcer Cleansing Rinsed/ Irrigated with Saline -Foul Odor after Cleansing No -Negative Pressure Wound Therapy N/A -Other Dressing BACTROBAN -Primary Dressing Covered/Secured with Dry Gauze, Secured with Tape Treatment Response Procedure Tolerated Well Pain Scale: 0-10 Numeric Is Patient Pain Free? Yes Teaching: Wound Center Dressing Your Wound -Person Taught Patient -Teaching Method Discussion -Response to teaching Verbalize understanding WC - Visit Discharge Discharge Condition Stable Ambulatory Status Ambulatory,Cane Transportation Private Auto Accompanied by DAUGHTER Medication Reconcilliation completed & No provided to patient/care provider Clinical Summary of Care Provided Yes Notes: DRESSING APPLIED PER Fabio WOODS RN. TOLERATED WELL. Assessment/Plan Assessment/Plan (1) Type 2 diabetes mellitus with diabetic polyneuropathy: CODE(S): E11.42 - Type 2 diabetes mellitus with diabetic polyneuropathy (2) Non-pressure chronic ulcer of other part of right foot with fat layer exposed: CODE(S): L97.512 - Non-pressure chronic ulcer of other part of right foot with fat layer exposed (3) History of malignant neoplasm of lung in adulthood: CODE(S): Z85.118 - Personal history of other malignant neoplasm of bronchus and lung PLAN: Plan Patient was evaluated at the wound healing center today.? Wound care - Ten applications of Epifix completed. Bactroban ointment covered with gauze to the medial foot ulcer daily after washing with soap and water. Apply Aquaphor or Vasoline to the dorsal aspect of foot to moisturize the dry, flaky, excoriated skin. Compression - Single tubigrip Off-loading - Suman shoe has been re-adjusted at the foot and ankle clinic. Also placing the double stacked AMD foam to help prevent pressure on his foot and wrapped with cling. Discussed placing a TCC on him but he is not steady on his feet normally, therefore a TCC would be hazardous for him. Stressed the importance of off loading and not putting pressure on this portion of his foot. Vascular:? 12/19/21 - Right EULALIA - 1.15, Left EULALIA 1.06.? Right digital 0.74, Left digital 0.71, bilateral triphasic. Venous studies showed bilateral no DVT, Bilateral calf with primary veins with reflux, bilateral SPJ reflux. A wound culture was obtained on 01/08/23 which was positive for Staphylococcus pseudintermediu. He was treated with Augmentin. Wound culture obtained on 07/18/22 positive for Staphylococcus pseudintermediu, he completed Augmentin. Wound culture obtained on 05/18/22 which was positive for Staphylococcus pseudintermediu, Staphylococcus saprophyticus and Anaerobic cocci.? Continue Augmentin. Encouraged high protein diet that is low in carbohydrates and sodium. Follow up two weeks. Call or come in sooner if develop any questions or concerns.
[2023-03-05 11:26] VITALS: BP 130/62; PULSE 104; RESP 16; TEMP 36.1
--- NOTE | 2023-03-05 12:26 | PN.PCM_ITS ---
History of Present Illness Date of Service: 03/05/23 Chief Complaint: right medial foot ulcer History of Wound: This 78-year-old male returns to the wound healing clinic for reoccurrence of a right medial foot ulcer. Patient with diabetic neuropathic. 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 Patient offloading right foot with surgical shoe. Wound culture from 07/18/22 positive for Staphylococcus pseudintermediu, he completed Augmentin. Wound culture from 01/08/23 positive for Staphylococcus pseudintermediu, he completed the Augmentin BID. Vascular:? 12/19/21 - Right EULALIA - 1.15, Left EULALIA 1.06.? Right digital 0.74, Left digital 0.71, bilateral triphasic. Venous studies showed bilateral no DVT, Bilateral calf with primary veins with reflux, bilateral SPJ reflux. Wound care - He completed 10 applications of Epifix. Bactroban ointment covered with adaptic and topped with gauze. Patient denies constitutional's or pains at this time. No other complaints. Progress of Wound: Right hallux ulcer is slightly smaller. He now is having issues with skin growing over the ulcer but the base of the ulcer is not getting smaller. He has been wearing the double stacked AMD foam and post op shoe to help prevent pressure on the area. Objective Data Objective Data Vital Signs: Vital Signs Temp Pulse Resp BP O2 Del Method 97.0 F L 104 H 16 130/62 H Room Air 03/05/23 11:26 03/05/23 11:26 03/05/23 11:26 03/05/23 11:26 03/05/23 11:26 Oxygen Delivery Method Room Air Charges/Coding Procedures Integumentary 111xxx-113xx: 46243 Mihaela subq tissue 20 sq cm/< Debridement Note Debridement Note Wound debrided: medial foot ulcer Laterality: Right Wound Grade/Stage: Stage III Type of Debridement: Excisional debridement Anesthesia Used: 5% Lidocaine Gel Depth: Down to and including healthy tissue and in the subcutaneous layer Percentage of wound debrided: 100 Instrument Used: 3mm curette Tissue Removed: Devitalized tissue and slough Severity: Fat Layer Exposed Amount of bleeding with debridement: Mild Bleeding Controlled with: Compression and gauze Patient tolerated procedure: Patient tolerated procedure well Post-Debridement Measurements and Additional Note: Post-Debridement Measurements/Treatment WC - Nurse 1 - General Ulcer Assessment Start: 02/19/23 13:34 Freq: Status: Active Protocol: HEMA Activity Type Activity Date Activity User E-sign Co-sign Detail Recorded Client Recorded Date Recorded By Document 02/19/23 13:34 DORA [id number] 02/19/23 13:36 JF Document 03/05/23 11:26 KW [id number] 03/05/23 11:29 KW 02/19/23 03/05/23 13:34 11:26 WC - Today's Visit Information Type of service Follow-up Visit Follow-up Visit (Physician/FISH CUTTING MACHINE OPERATOR (Physician/FISH CUTTING MACHINE OPERATOR ) ) Arrival Mode Ambulatory Ambulatory,Cane Accompanied by family- Daughter Patient Identification Verified (Name & Yes ) Patient Requires Transmission-Based No Precautions Finger Stick Blood Sugar(mg/dl) (if 143 indicated): Blood Sugar Stated by Patient Vital Signs Temperature (97.8 F-99.1 F) 96.9 F L 97.0 F L Temperature Source Temporal Temporal Pulse Rate (60-100) 103 H 104 H Pulse Location Monitor Monitor Respiratory Rate (12-18) 16 16 Respiratory rate source Observation Observation Oxygen Delivery Method Room Air Blood Pressure (90/60-120/80) 116/62 130/62 H Blood Pressure Mean (mm Hg) 80 84 Source Monitor Monitor Position Semi-Fowlers Semi-Fowlers Blood Pressure Location Left Arm Left Arm History Since Last Visit- (Skip if this is Patient's initial visit) Have you changed medications since your No No last visit? Any new allergies or adverse reactions No No Had a fall/change in ADL's that may No No increase risk of falls Signs or symptoms of abuse and/or No No neglect since last visit Have you been in the hospital since your No No last visit? Has dressing in place as prescribed Yes Yes Has compression in place as prescribed Yes No Has offloadiing in place as prescribed N/A No Experienced any changes in pain level or No No management Left Footwear Regular Shoe Regular Shoe Right Footwear Surgical Shoe Surgical Shoe with pressure with pressure relief insole relief insole Pain Scale: 0-10 Numeric Is Patient Pain Free? Yes Yes URBAN - Nurse 1 - General Ulcer Measurement Start: 02/19/23 13:34 Freq: Status: Active Protocol: Activity Type Activity Date Activity User E-sign Co-sign Detail Recorded Client Recorded Date Recorded By Document 02/19/23 13:34 [id number] 02/19/23 13:36 Document 03/05/23 11:26 [id number] 03/05/23 11:29 02/19/23 03/05/23 13:34 11:26 Wound Center Nurse 1 #9 Right Inferior Hallux -Combined with other wound No -Current Size (cm) - Length 0.1 0.4 -Current Size (cm) - Width 0.1 0.3 -Current Size (cm) - Depth 0.1 0.2 -Total Square Cm 0.01 0.12 -Photo Taken No No -Epithelialization Large 67-100% -Tunneling No -Undermining/Tunneling No -Circular Undermining No -Exudate Amt None Present Small -Exudate Type Serosanguineous -Wound Margin Flat & Intact Distinct, Outline Attached -Granulation Amt Large (67-100%) Small (1-33%) -Granulation Quality [place] -Slough/Fibrin No -Necrosis Amt Small (1-33%) -Structure Exposed N/A None/Limited to Skin Breakdown -Texture (Anna-wound Skin Appearance) Assessed Assessed,Callus -Moisture (Anna-wound Skin Appearance) Assessed,Dry/ Assessed Scaly -Color (Anna-wound Skin Appearance) Assessed Assessed,Palor -Temperature (Anna-wound Skin No Abnormality No Abnormality Appearance) (Pt Warm) (Pt Warm) -Tenderness on Palpation (Anna-wound No No Skin Appearance) -Ulcer Cleansing Rinsed/ Rinsed/ Irrigated with Irrigated with Saline Saline -Foul Odor after Cleansing No No -Anesthetic Used 5% Lidocaine Gel Lower Limb Edema Present NA NA WC - Nurse 2 - General Ulcer CM Notes Start: 02/19/23 13:34 Freq: Status: Active Protocol: Activity Type Activity Date Activity User E-sign Co-sign Detail Recorded Client Recorded Date Recorded By Document 02/19/23 13:37 [id number] 02/19/23 13:39 Document 03/05/23 11:37 [id number] 03/05/23 11:46 02/19/23 03/05/23 13:37 11:37 Wound Center Nurse 2 #9 Right Inferior Hallux -Time 13:38 11:38 -Correct Patient Yes Yes -Correct Side, Site, Position Yes Yes -Correct Procedure Yes Yes -Procedure Performed Yes Yes -Type of Procedure Debridement Debridement -Clinical Debridement Subcutaneous Subcutaneous -Tissue Removed Subcutaneous Subcutaneous -Post Debridement (cm) - Length 0.4 0.4 -Post Debridement (cm) - Width 0.4 0.4 -Post Debridement (cm) - Depth 0.2 0.2 -Total Square (Post) (cm) 0.16 0.16 -Area of Debridement (cm) - Length 0.4 0.4 -Area of Debridement (cm) - Width 0.4 0.4 -Total Square (Area) (cm) 0.16 0.16 -Tunneling No No -Undermining/Tunneling No No -Circular Undermining No No -Wound/Ulcer Outcome Not Healed Not Healed -Ulcer Cleansing Rinsed/ Rinsed/ Irrigated with Irrigated with Saline Saline -Foul Odor after Cleansing No No -Bioengineered Tissue No No -Bleeding Controlled with Pressure Pressure -Treatment Response Procedure Procedure Tolerated Well Tolerated Well -Offloading Yes Yes -Type of Offloading Surgical Shoe Surgical Shoe -Debridement - Subq, 1st 20sq cm Yes Yes Pain Scale: 0-10 Numeric Is Patient Pain Free? Yes Yes WC - Nurse 3 - General Ulcer D/C NN Start: 02/19/23 13:34 Freq: Status: Active Protocol: Activity Type Activity Date Activity User E-sign Co-sign Detail Recorded Client Recorded Date Recorded By Document 02/19/23 13:43 MW [id number] 02/19/23 13:44 MW Document 03/05/23 11:53 [facility] [id number] 03/05/23 11:55 [facility] 02/19/23 03/05/23 13:43 11:53 Wound Care Center Nurse 3 #9 Right Inferior Hallux -Ulcer Cleansing Rinsed/ Rinsed/ Irrigated with Irrigated with Saline Saline -Foul Odor after Cleansing No No -Negative Pressure Wound Therapy N/A -Other Dressing BACTROBAN bactroban -Primary Dressing Covered/Secured with Dry Gauze, Dry Gauze, Secured with Secured with Tape Tape -Other Covering apperture Treatment Response Procedure Procedure Tolerated Well Tolerated Well Pain Scale: 0-10 Numeric Is Patient Pain Free? Yes Yes Teaching: Wound Center Dressing Your Wound -Person Taught Patient -Teaching Method Discussion -Response to teaching Verbalize understanding WC - Visit Discharge Discharge Condition Stable Stable Ambulatory Status Ambulatory,Cane Ambulatory,Cane Transportation Private Auto Private Auto Accompanied by DAUGHTER yany in law Medication Reconcilliation completed & No provided to patient/care provider Clinical Summary of Care Provided Yes Notes: DRESSING APPLIED PER Fabio WOODS RN. TOLERATED WELL. Assessment/Plan Assessment/Plan (1) Type 2 diabetes mellitus with diabetic polyneuropathy: CODE(S): E11.42 - Type 2 diabetes mellitus with diabetic polyneuropathy (2) Non-pressure chronic ulcer of other part of right foot with fat layer exposed: CODE(S): L97.512 - Non-pressure chronic ulcer of other part of right foot with fat layer exposed (3) History of malignant neoplasm of lung in adulthood: CODE(S): Z85.118 - Personal history of other malignant neoplasm of bronchus and lung PLAN: Plan Patient was evaluated at the wound healing center today.? Wound care - Ten applications of Epifix completed. Bactroban ointment covered with gauze to the medial foot ulcer daily after washing with soap and water. Compression - Single tubigrip Off-loading - Suman shoe has been re-adjusted at the foot and ankle clinic. Also placing the double stacked AMD foam to help prevent pressure on his foot and wrapped with cling. Discussed placing a TCC on him but he is not steady on his feet normally, therefore a TCC would be hazardous for him. Stressed the importance of off loading and not putting pressure on this portion of his foot. Vascular:? 12/19/21 - Right EULALIA - 1.15, Left EULALIA 1.06.? Right digital 0.74, Left digital 0.71, bilateral triphasic. Venous studies showed bilateral no DVT, Bilateral calf with primary veins with reflux, bilateral SPJ reflux. A wound culture was obtained on 01/08/23 which was positive for Staphylococcus pseudintermediu. He was treated with Augmentin. Wound culture obtained on 07/18/22 positive for Staphylococcus pseudintermediu, he completed Augmentin. Wound culture obtained on 05/18/22 which was positive for Staphylococcus pseudintermediu, Staphylococcus saprophyticus and Anaerobic cocci.? Continue Augmentin. Encouraged high protein diet that is low in carbohydrates and sodium. Follow up two weeks. Call or come in sooner if develop any questions or concerns.
[2023-03-19 10:28] VITALS: BP 120/59; PULSE 106; RESP 20; TEMP 36.8
--- NOTE | 2023-03-19 13:14 | PCM.WC.PN ---
History of Present Illness Date of Service: 03/19/23 Chief Complaint: right medial foot ulcer History of Wound: This 78-year-old male returns to the wound healing clinic for reoccurrence of a right medial foot ulcer. Patient with diabetic neuropathic. 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 Patient offloading right foot with surgical shoe. Wound culture from 07/18/22 positive for Staphylococcus pseudintermediu, he completed Augmentin. Wound culture from 01/08/23 positive for Staphylococcus pseudintermediu, he completed the Augmentin BID. Vascular:? 12/19/21 - Right EULALIA - 1.15, Left EULALIA 1.06.? Right digital 0.74, Left digital 0.71, bilateral triphasic. Venous studies showed bilateral no DVT, Bilateral calf with primary veins with reflux, bilateral SPJ reflux. Wound care - He completed 10 applications of Epifix. Bactroban ointment covered with adaptic and topped with gauze. Patient denies constitutional's or pains at this time. No other complaints. Progress of Wound: Right hallux ulcer is stable. He continues to have skin over growth with undermining that needs removed at each visit. Objective Data Objective Data Vital Signs: Vital Signs Temp Pulse Resp BP O2 Del Method 98.2 F 106 H 20 H 120/59 L Room Air 03/19/23 10:28 03/19/23 10:28 03/19/23 10:28 03/19/23 10:28 03/05/23 11:26 Oxygen Delivery Method Room Air Charges/Coding Procedures Integumentary 111xxx-113xx: 15461 Mihaela subq tissue 20 sq cm/< Debridement Note Debridement Note Wound debrided: medial foot ulcer Laterality: Right Wound Grade/Stage: Stage III Type of Debridement: Excisional debridement Anesthesia Used: 5% Lidocaine Gel Depth: Down to and including healthy tissue and in the subcutaneous layer Percentage of wound debrided: 100 Instrument Used: 3mm curette and - (scissors and pick ups) Tissue Removed: Devitalized tissue and slough Severity: Fat Layer Exposed Amount of bleeding with debridement: Mild Bleeding Controlled with: Compression and gauze Patient tolerated procedure: Patient tolerated procedure well Debridement Free Text: He continues to have skin overgrowth/callus that causes undermining that is removed with each debridement. Post-Debridement Measurements and Additional Note: Post-Debridement Measurements/Treatment WC - Nurse 1 - General Ulcer Assessment Start: 02/19/23 13:34 Freq: Status: Active Protocol: HEAM Activity Type Activity Date Activity User E-sign Co-sign Detail Recorded Client Recorded Date Recorded By Document 02/19/23 13:34 JF [id number] 02/19/23 13:36 JF Document 03/05/23 11:26 KW [id number] 03/05/23 11:29 KW Document 03/19/23 10:28 DL [id number] 03/19/23 10:33 DL 02/19/23 03/05/23 03/19/23 13:34 11:26 10:28 WC - Today's Visit Information Type of service Follow-up Visit Follow-up Visit Follow-up Visit (Physician/RESOURCE CONSERVATION SPECIALIST (Physician/RESOURCE CONSERVATION SPECIALIST (Physician/RESOURCE CONSERVATION SPECIALIST ) ) ) Arrival Mode Ambulatory Ambulatory,Cane Ambulatory Transfer Assistance None Accompanied by family- Daughter Patient Identification Verified (Name & Yes Yes ) Patient Requires Transmission-Based No No Precautions Finger Stick Blood Sugar(mg/dl) (if 143 indicated): Blood Sugar Stated by Patient Vital Signs Temperature (97.8 F-99.1 F) 96.9 F L 97.0 F L 98.2 F Temperature Source Temporal Temporal Temporal Pulse Rate (60-100) 103 H 104 H 106 H Pulse Location Monitor Monitor Monitor Respiratory Rate (12-18) 16 16 20 H Respiratory rate source Observation Observation Observation Oxygen Delivery Method Room Air Blood Pressure (90/60-120/80) 116/62 130/62 H 120/59 L Blood Pressure Mean (mm Hg) 80 84 79 Source Monitor Monitor Monitor Position Semi-Fowlers Semi-Fowlers Blood Pressure Location Left Arm Left Arm History Since Last Visit- (Skip if this is Patient's initial visit) Have you changed medications since your No No No last visit? Any new allergies or adverse reactions No No No Had a fall/change in ADL's that may No No No increase risk of falls Signs or symptoms of abuse and/or No No No neglect since last visit Have you been in the hospital since your No No No last visit? Has dressing in place as prescribed Yes Yes Yes Has compression in place as prescribed Yes No N/A Has offloadiing in place as prescribed N/A No Yes Experienced any changes in pain level or No No No management Left Footwear Regular Shoe Regular Shoe Right Footwear Surgical Shoe Surgical Shoe Surgical Shoe with pressure with pressure with pressure relief insole relief insole relief insole Pain Scale: 0-10 Numeric Is Patient Pain Free? Yes Yes Yes WC - Nurse 1 - General Ulcer Measurement Start: 02/19/23 13:34 Freq: Status: Active Protocol: Activity Type Activity Date Activity User E-sign Co-sign Detail Recorded Client Recorded Date Recorded By Document 02/19/23 13:34 JF [id number] 02/19/23 13:36 JF Document 03/05/23 11:26 KW [id number] 03/05/23 11:29 KW Document 03/19/23 10:28 DL [id number] 03/19/23 10:33 DL 02/19/23 03/05/23 03/19/23 13:34 11:26 10:28 Wound Center Nurse 1 #9 Right Inferior Hallux -Combined with other wound No -Current Size (cm) - Length 0.1 0.4 0.2 -Current Size (cm) - Width 0.1 0.3 0.2 -Current Size (cm) - Depth 0.1 0.2 0.2 -Total Square Cm 0.01 0.12 0.04 -Photo Taken No No -Epithelialization Large 67-100% -Tunneling No -Undermining/Tunneling No -Maximum Distance #2 (cm) 0.2 -Circular Undermining No Yes -Exudate Amt None Present Small None Present -Exudate Type Serosanguineous -Wound Margin Flat & Intact Distinct, Thickened Outline Attached -Granulation Amt Large (67-100%) Small (1-33%) Small (1-33%) -Granulation Quality [place] -Slough/Fibrin No -Necrosis Amt Small (1-33%) None Present (0 %) -Structure Exposed N/A None/Limited to Skin Breakdown -Texture (Anna-wound Skin Appearance) Assessed Assessed,Callus Callus,Scarring -Moisture (Anna-wound Skin Appearance) Assessed,Dry/ Assessed Dry/Scaly Scaly -Color (Anna-wound Skin Appearance) Assessed Assessed,Palor No Abnormality -Temperature (Anna-wound Skin No Abnormality No Abnormality No Abnormality Appearance) (Pt Warm) (Pt Warm) (Pt Warm) -Tenderness on Palpation (Anna-wound No No No Skin Appearance) -Ulcer Cleansing Rinsed/ Rinsed/ Rinsed/ Irrigated with Irrigated with Irrigated with Saline Saline Saline -Foul Odor after Cleansing No No No -Anesthetic Used 5% Lidocaine 5% Lidocaine Gel Gel Lower Limb Edema Present NA NA WC - Nurse 2 - General Ulcer CM Notes Start: 02/19/23 13:34 Freq: Status: Active Protocol: Activity Type Activity Date Activity User E-sign Co-sign Detail Recorded Client Recorded Date Recorded By Document 02/19/23 13:37 [id number] 02/19/23 13:39 Document 03/05/23 11:37 [id number] 03/05/23 11:46 Document 03/19/23 10:46 [id number] 03/19/23 10:52 02/19/23 03/05/23 03/19/23 13:37 11:37 10:46 Wound Center Nurse 2 #9 Right Inferior Hallux -Time 13:38 11:38 10:48 -Correct Patient Yes Yes Yes -Correct Side, Site, Position Yes Yes Yes -Correct Procedure Yes Yes Yes -Procedure Performed Yes Yes Yes -Type of Procedure Debridement Debridement Debridement -Clinical Debridement Subcutaneous Subcutaneous Subcutaneous -Tissue Removed Subcutaneous Subcutaneous Subcutaneous -Post Debridement (cm) - Length 0.4 0.4 0.4 -Post Debridement (cm) - Width 0.4 0.4 0.4 -Post Debridement (cm) - Depth 0.2 0.2 0.2 -Total Square (Post) (cm) 0.16 0.16 0.16 -Area of Debridement (cm) - Length 0.4 0.4 0.4 -Area of Debridement (cm) - Width 0.4 0.4 0.4 -Total Square (Area) (cm) 0.16 0.16 0.16 -Tunneling No No No -Undermining/Tunneling No No No -Circular Undermining No No No -Wound/Ulcer Outcome Not Healed Not Healed Not Healed -Ulcer Cleansing Rinsed/ Rinsed/ Rinsed/ Irrigated with Irrigated with Irrigated with Saline Saline Saline -Foul Odor after Cleansing No No No -Bioengineered Tissue No No No -Bleeding Controlled with Pressure Pressure Pressure,Silver Nitrate -Treatment Response Procedure Procedure Procedure Tolerated Well Tolerated Well Tolerated Well -Offloading Yes Yes Yes -Type of Offloading Surgical Shoe Surgical Shoe Surgical Shoe -Debridement - Subq, 1st 20sq cm Yes Yes Yes Pain Scale: 0-10 Numeric Is Patient Pain Free? Yes Yes Yes - Nurse 3 - General Ulcer D/C NN Start: 02/19/23 13:34 Freq: Status: Active Protocol: Activity Type Activity Date Activity User E-sign Co-sign Detail Recorded Client Recorded Date Recorded By Document 02/19/23 13:43 MW [id number] 02/19/23 13:44 MW Document 03/05/23 11:53 BM [id number] 03/05/23 11:55 BMF Document 03/19/23 11:03 [id number] 03/19/23 11:04 JF 02/19/23 03/05/23 03/19/23 13:43 11:53 11:03 Wound Care Center Nurse 3 #9 Right Inferior Hallux -Ulcer Cleansing Rinsed/ Rinsed/ Rinsed/ Irrigated with Irrigated with Irrigated with Saline Saline Saline -Foul Odor after Cleansing No No No -Negative Pressure Wound Therapy N/A -Primary Dressing Applied C Hydrogel ($), Mepilex Border, NonAdherent Contact Layer -Other Dressing BACTROBAN bactroban -Primary Dressing Covered/Secured with Dry Gauze, Dry Gauze, Secured with Secured with Tape Tape -Other Covering apperture -Mepilex Border 1 Treatment Response Procedure Procedure Tolerated Well Tolerated Well Pain Scale: 0-10 Numeric Is Patient Pain Free? Yes Yes Yes Teaching: Wound Center Dressing Your Wound -Person Taught Patient -Teaching Method Discussion -Response to teaching Verbalize understanding - Visit Discharge Discharge Condition Stable Stable Stable Ambulatory Status Ambulatory,Cane Ambulatory,Cane Ambulatory,Cane Transportation Private Auto Private Auto Private Auto Accompanied by DAUGHTER yany in law Medication Reconcilliation completed & No Yes provided to patient/care provider Clinical Summary of Care Provided Yes Yes Notes: DRESSING APPLIED PER Fabio WOODS RN. TOLERATED WELL. Assessment/Plan Assessment/Plan (1) Type 2 diabetes mellitus with diabetic polyneuropathy: CODE(S): E11.42 - Type 2 diabetes mellitus with diabetic polyneuropathy (2) Non-pressure chronic ulcer of other part of right foot with fat layer exposed: CODE(S): L97.512 - Non-pressure chronic ulcer of other part of right foot with fat layer exposed (3) History of malignant neoplasm of lung in adulthood: CODE(S): Z85.118 - Personal history of other malignant neoplasm of bronchus and lung PLAN: Plan Patient was evaluated at the wound healing center today.? Wound care - Ten applications of Epifix completed. Collagen hydrogel topped with adpatic covered with gauze to the medial foot ulcer daily after washing with soap and water. Compression - Single tubigrip Off-loading - Suman shoe has been re-adjusted at the foot and ankle clinic. Also placing the double stacked AMD foam to help prevent pressure on his foot and wrapped with cling. He is going to cut out an area of his shoe to prevent pressure on his hallux to see if that helps with the callusing. Stressed the importance of off loading and not putting pressure on this portion of his foot. Vascular:? 12/19/21 - Right EULALIA - 1.15, Left EULALIA 1.06.? Right digital 0.74, Left digital 0.71, bilateral triphasic. Venous studies showed bilateral no DVT, Bilateral calf with primary veins with reflux, bilateral SPJ reflux. A wound culture was obtained on 01/08/23 which was positive for Staphylococcus pseudintermediu. He was treated with Augmentin. Wound culture obtained on 07/18/22 positive for Staphylococcus pseudintermediu, he completed Augmentin. Wound culture obtained on 05/18/22 which was positive for Staphylococcus pseudintermediu, Staphylococcus saprophyticus and Anaerobic cocci.? Continue Augmentin. Encouraged high protein diet that is low in carbohydrates and sodium. Follow up two weeks. Call or come in sooner if develop any questions or concerns.
== END 2023-03-19 23:59 | disposition home or self-care (01) ==
LOC: WC 10:15
PROVIDERS: PCP Family Medicine; Visit Provider Nurse Practitioner Family
DX: E11.621 Type 2 diabetes mellitus with foot ulcer (principal); C34.90 Malignant neoplasm of unspecified part of unspecified bronchus or lung; L97.512 Non-pressure chronic ulcer of other part of right foot with fat layer exposed; E11.42 Type 2 diabetes mellitus with diabetic polyneuropathy; Z92.3 Personal history of irradiation
CPT/HCPCS: 11042

== ENCOUNTER → 2023-04-10 | Outpatient (CLI) | payer MEDICARE, OTHER, SELFPAY ==
--- NOTE | 2023-04-10 13:43 | CT_ITS ---
EXAM: CT CHEST WITH INTRAVENOUS CONTRAST CLINICAL INDICATION: MONITOR LUNG CA TECHNIQUE: Helically acquired images were obtained of the chest with intravenous contrast. This CT exam was performed using one or more of the following dose reduction techniques: automated exposure control, adjustment of the mA and/or kV according to patient size, and/or use of iterative reconstruction technique. CONTRAST: IV 100mL Isovue-300 COMPARISON: CT Chest dated 10/09/2022 FINDINGS: LUNGS AND PLEURAL SPACES: No significant change in the 2.5 cm spiculated mass within the right upper lobe. Increasing interstitial thickening of both lungs which may represent pulmonary edema. Small right pleural effusion is present increased in size from prior exam. No pneumothorax. 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 No pericardial effusion. Normal heart size. MEDIASTINUM: Normal. No mediastinal or hilar adenopathy. Esophagus is unremarkable. No hiatal hernia. BONES/JOINTS: No suspicious lytic or blastic abnormality. VASCULATURE: See above. CT/Chest WITH Contrast IMPRESSION: 1. No significant change in the size of the right upper lobe lung mass. 2. Increasing interstitial thickening suggestive of pulmonary edema. Electronically Signed: Markus Rodriguez MD at 9:58 EDT ,
[2023-04-10 14:41] LABS: CREATININE FINGERSTICK 1.1 mg/dL (0.70-1.30); EGFR FINGERSTICK > 60.0000 mL/min (>60)
== END | disposition home or self-care (01) ==
LOC: CT 13:41
PROVIDERS: PCP Family Medicine; Referring Provider Internal Medicine Medical Oncology; Visit Provider Internal Medicine Medical Oncology
DX: C34.11 Malignant neoplasm of upper lobe, right bronchus or lung (principal)
CPT/HCPCS: 71260; Q9967

== ENCOUNTER 2023-04-18 13:30 | Outpatient (RCR) | payer MEDICARE, OTHER, SELFPAY ==
[2023-03-20 00:34] VITALS: BP 120/59; PULSE 106; RESP 20; TEMP 36.8
[2023-04-02 11:24] VITALS: BP 114/55; PULSE 101; RESP 20; TEMP 37
--- NOTE | 2023-04-02 12:35 | PN.PCM_ITS ---
History of Present Illness Date of Service: 04/02/23 Chief Complaint: right medial foot ulcer History of Wound: This 78-year-old male returns to the wound healing clinic for reoccurrence of a right medial foot ulcer. Patient with diabetic neuropathic. 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 Patient offloading right foot with surgical shoe. Wound culture from 07/18/22 positive for Staphylococcus pseudintermediu, he completed Augmentin. Wound culture from 01/08/23 positive for Staphylococcus pseudintermediu, he completed the Augmentin BID. Vascular:? 12/19/21 - Right EULALIA - 1.15, Left EULALIA 1.06.? Right digital 0.74, Left digital 0.71, bilateral triphasic. Venous studies showed bilateral no DVT, Bilateral calf with primary veins with reflux, bilateral SPJ reflux. Wound care - He completed 10 applications of Epifix. Bactroban ointment covered with adaptic and topped with gauze. Patient denies constitutional's or pains at this time. No other complaints. Progress of Wound: Right hallux ulcer is slightly smaller. He did not have the overgrowth of callus this week. He has cut out a portion of his shoe to help with the off loading. Objective Data Objective Data Vital Signs: Vital Signs Temp Pulse Resp BP 98.6 F 101 H 20 H 114/55 L 04/02/23 11:24 04/02/23 11:24 04/02/23 11:24 04/02/23 11:24 Charges/Coding Procedures Integumentary [id number]: [id number] Mihaela subq tissue 20 sq cm/< Debridement Note Debridement Note Wound debrided: medial foot ulcer Laterality: Right Type of Debridement: Excisional debridement Anesthesia Used: 5% Lidocaine Gel Depth: Down to and including healthy tissue and in the subcutaneous layer Percentage of wound debrided: 100 Instrument Used: 3mm curette Tissue Removed: Devitalized tissue and slough Severity: Fat Layer Exposed Amount of bleeding with debridement: Mild Bleeding Controlled with: Compression and gauze Patient tolerated procedure: Patient tolerated procedure well Post-Debridement Measurements and Additional Note: Post-Debridement Measurements/Treatment URBAN - Nurse 1 - General Ulcer Assessment Start: 04/02/23 11:22 Freq: Status: Active Protocol: HEMA Activity Type Activity Date Activity User E-sign Co-sign Detail Recorded Client Recorded Date Recorded By Document 04/02/23 11:24 PL [id number] 04/02/23 11:25 KIM 04/02/23 11:24 WC - Today's Visit Information Type of service Follow-up Visit (Physician/RESTORATION SILVERSMITH ) Arrival Mode Ambulatory,Cane Transfer Assistance None Patient Identification Verified (Name & Yes ) Patient Requires Transmission-Based No Precautions Safety Precautions NA Vital Signs Temperature (97.8 F-99.1 F) 98.6 F Temperature Source Temporal Pulse Rate (60-100) 101 H Respiratory Rate (12-18) 20 H Blood Pressure (90/60-120/80) 114/55 L Blood Pressure Mean (mm Hg) 74 History Since Last Visit- (Skip if this is Patient's initial visit) Have you changed medications since your No last visit? Any new allergies or adverse reactions No Had a fall/change in ADL's that may No increase risk of falls Signs or symptoms of abuse and/or No neglect since last visit Have you been in the hospital since your No last visit? Has dressing in place as prescribed Yes Has compression in place as prescribed N/A Has offloadiing in place as prescribed N/A Experienced any changes in pain level or No management Pain Scale: 0-10 Numeric Is Patient Pain Free? Yes - Nurse 2 - General Ulcer CM Notes Start: 04/02/23 11:22 Freq: Status: Active Protocol: Activity Type Activity Date Activity User E-sign Co-sign Detail Recorded Client Recorded Date Recorded By Document 04/02/23 11:42 DORA [id number] 04/02/23 11:53 DORA 04/02/23 11:42 Wound Center Nurse 2 #9 Right Inferior Hallux -Time 11:53 -Correct Patient Yes -Correct Side, Site, Position Yes -Correct Procedure Yes -Procedure Performed Yes -Type of Procedure Debridement -Clinical Debridement Subcutaneous -Tissue Removed Subcutaneous -Post Debridement (cm) - Length 0.6 -Post Debridement (cm) - Width 0.6 -Post Debridement (cm) - Depth 0.2 -Total Square (Post) (cm) 0.36 -Area of Debridement (cm) - Length 0.6 -Area of Debridement (cm) - Width 0.6 -Total Square (Area) (cm) 0.36 -Tunneling No -Undermining/Tunneling No -Circular Undermining No -Wound/Ulcer Outcome Not Healed -Ulcer Cleansing Rinsed/ Irrigated with Saline -Foul Odor after Cleansing No -Bioengineered Tissue No -Bleeding Controlled with Pressure -Treatment Response Procedure Tolerated Well -Offloading No -Debridement - Subq, 1st 20sq cm Yes Pain Scale: 0-10 Numeric Is Patient Pain Free? Yes - Nurse 3 - General Ulcer D/C NN Start: 04/02/23 11:22 Freq: Status: Active Protocol: Activity Type Activity Date Activity User E-sign Co-sign Detail Recorded Client Recorded Date Recorded By Document 04/02/23 11:54 DORA [id number] 04/02/23 11:54 DORA 04/02/23 11:54 Wound Care Center Nurse 3 #9 Right Inferior Hallux -Ulcer Cleansing Rinsed/ Irrigated with Saline -Foul Odor after Cleansing No -Primary Dressing Applied NonAdherent Contact Layer, Promogran -Primary Dressing Covered/Secured with Dry Gauze, Secured with Tape -Promogran 1 Pain Scale: 0-10 Numeric Is Patient Pain Free? Yes - Visit Discharge Discharge Condition Stable Ambulatory Status Ambulatory,Cane Transportation Private Auto Accompanied by DIL Medication Reconcilliation completed & Yes provided to patient/care provider Clinical Summary of Care Provided Yes Assessment/Plan Assessment/Plan (1) Type 2 diabetes mellitus with diabetic polyneuropathy: CODE(S): E11.42 - Type 2 diabetes mellitus with diabetic polyneuropathy (2) Non-pressure chronic ulcer of other part of right foot with fat layer exposed: CODE(S): L97.512 - Non-pressure chronic ulcer of other part of right foot with fat layer exposed (3) History of malignant neoplasm of lung in adulthood: CODE(S): Z85.118 - Personal history of other malignant neoplasm of bronchus and lung PLAN: Plan Patient was evaluated at the wound healing center today.? Wound care - Ten applications of Epifix completed. Moistened Cass topped with adpatic covered with gauze to the medial foot ulcer daily after washing with soap and water. Compression - Single tubigrip Off-loading - Diabetic shoe with a cut out area of his shoe to prevent pressure on his hallux to help prevent pressure. He is not a candidate for TCC or knee scooter due to his instability with walking. Stressed the importance of off loading and not putting pressure on this portion of his foot. Vascular:? 12/19/21 - Right EULALIA - 1.15, Left EULALIA 1.06.? Right digital 0.74, Left digital 0.71, bilateral triphasic. Venous studies showed bilateral no DVT, Bilateral calf with primary veins with reflux, bilateral SPJ reflux. A wound culture was obtained on 01/08/23 which was positive for Staphylococcus pseudintermediu. He was treated with Augmentin. Wound culture obtained on 07/18/22 positive for Staphylococcus pseudintermediu, he completed Augmentin. Wound culture obtained on 05/18/22 which was positive for Staphylococcus pseudintermediu, Staphylococcus saprophyticus and Anaerobic cocci.? Continue Augmentin. Encouraged high protein diet that is low in carbohydrates and sodium. Now that the wound center will have a gas pumping station supervisor, will have the patient see him for further evaluation and treatment. Follow up two weeks. Call or come in sooner if develop any questions or concerns.
[2023-04-18 13:24] VITALS: BP 141/77; PULSE 109; RESP 16; TEMP 36.4
--- NOTE | 2023-04-18 15:49 | PCM.WC.PN ---
History of Present Illness Date of Service: 04/18/23 Chief Complaint: right medial foot ulcer History of Wound: This 78-year-old male returns to the wound healing clinic for reoccurrence of a right medial foot ulcer. Patient with diabetic neuropathic. 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 Patient offloading right foot with surgical shoe. Wound culture from 07/18/22 positive for Staphylococcus pseudintermediu, he completed Augmentin. Wound culture from 01/08/23 positive for Staphylococcus pseudintermediu, he completed the Augmentin BID. Vascular:? 12/19/21 - Right EULALIA - 1.15, Left EULALIA 1.06.? Right digital 0.74, Left digital 0.71, bilateral triphasic. Venous studies showed bilateral no DVT, Bilateral calf with primary veins with reflux, bilateral SPJ reflux. Wound care - He completed 10 applications of Epifix. Bactroban ointment covered with adaptic and topped with gauze. Patient denies constitutional's or pains at this time. No other complaints. Progress of Wound: Right hallux ulcer is slightly smaller. He did not have the overgrowth of callus this week. He has cut out a portion of his shoe to help with the off loading. Subjective Subjective Mr. Gunter is a 78-year-old diabetic male seen in the wound care center today with a chief complaint of full-thickness ulceration to the medial aspect of the big toe joint of his right foot. Patient midst to having this wound healed for approximately 1 year and now has reopened. He is using a shoe with a cut out that has helped decrease pressure however still has the wound. He did have PVRs approxi-1 year ago. He admits to being a controlled diabetic. His blood sugar today was 151 mg/dL, and his last A1c was 6.8. He denies trauma. Denies constitutional symptoms. No other pedal complaints at this time. Objective Data Objective Data Vital Signs: Vital Signs Temp Pulse Resp BP O2 Del Method 97.5 F L 109 H 16 141/77 H Room Air 04/18/23 13:24 04/18/23 13:24 04/18/23 13:24 04/18/23 13:24 04/18/23 13:24 Oxygen Delivery Method Room Air Lab / Micro Data Attestation: I reviewed the patient's lab results. Physical Exam Narrative Vascular: DP and PT pulses are faintly palpable. CFT is delayed. Atrophic skin is appreciated. No erythema or proximal streaking. Neurological: Light touch intact. Protective sensation is diminished. Dermatological: Hyperkeratotic pink periwound to the medial aspect of the first metatarsophalangeal joint. Full-thickness ulceration is also present to the first metatarsophalangeal joint. Wound measures 0.4 x 0.2 x 0.3 cm. No probe to bone. No sign of infection. Excisional debridement of the full-thickness ulceration to the medial aspect of the first metatarsophalangeal joint right foot down to and including subcutaneous tissue with a #15 blade without incident. Predebridement measurements were 0.4 x 0.2 x 0.3 cm, postdebridement measurement are 0.6 x 0.5 x 0.5 cm. Sanguinous drainage noted after debridement. Musculoskeletal: Decreased range of motion to the first metatarsophalangeal joint of the right foot. 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 No pain with palpation to the full-thickness ulceration of the right foot. No pain with calf compression. Const alert and oriented x3 Debridement Note Debridement Note Debridement Free Text: Excisional debridement of the full-thickness ulceration to the medial aspect of the first metatarsophalangeal joint right foot down to and including subcutaneous tissue with a #15 blade without incident. Predebridement measurements were 0.4 x 0.2 x 0.3 cm, postdebridement measurement are 0.6 x 0.5 x 0.5 cm. Sanguinous drainage noted after debridement. Post-Debridement Measurements and Additional Note: Post-Debridement Measurements/Treatment - Nurse 1 - General Ulcer Assessment Start: 04/02/23 11:22 Freq: Status: Active Protocol: [email or web address] Activity Type Activity Date Activity User E-sign Co-sign Detail Recorded Client Recorded Date Recorded By Document 04/02/23 11:24 PL [id number] 04/02/23 11:25 PL Document 04/18/23 13:[address] [facility] [id number] 04/18/23 13:30 BM 04/02/23 04/18/23 11:24 13:24 - Today's Visit Information Type of service Follow-up Visit Follow-up Visit (Physician/HOME CARE COORDINATOR (Physician/HOME CARE COORDINATOR ) ) Arrival Mode Ambulatory,Cane Ambulatory,Cane Transfer Assistance None None Accompanied by WEI IN LAW Patient Identification Verified (Name & Yes Yes ) Patient Requires Transmission-Based No No Precautions Safety Precautions NA Vital Signs Temperature (97.8 F-99.1 F) 98.6 F 97.5 F L Temperature Source Temporal Temporal Pulse Rate (60-100) 101 H 109 H Pulse Location Monitor Respiratory Rate (12-18) 20 H 16 Respiratory rate source Observation Oxygen Delivery Method Room Air Blood Pressure (90/60-120/80) 114/55 L 141/77 H Blood Pressure Mean (mm Hg) 74 98 Source Monitor Position Sitting Blood Pressure Location Left Forearm History Since Last Visit- (Skip if this is Patient's initial visit) Have you changed medications since your No No last visit? Any new allergies or adverse reactions No No Had a fall/change in ADL's that may No No increase risk of falls Signs or symptoms of abuse and/or No No neglect since last visit Have you been in the hospital since your No No last visit? Has dressing in place as prescribed Yes Yes Has compression in place as prescribed N/A N/A Has offloadiing in place as prescribed N/A Yes Experienced any changes in pain level or No No management Left Footwear Custom Shoe Right Footwear Custom Shoe Pain Scale: 0-10 Numeric Is Patient Pain Free? Yes Yes - Nurse 1 - General Ulcer Measurement Start: 04/02/23 11:22 Freq: Status: Active Protocol: Activity Type Activity Date Activity User E-sign Co-sign Detail Recorded Client Recorded Date Recorded By Document 04/18/23 13:[address] [facility] [id number] 04/18/23 13:[address] [facility] 04/18/23 13:24 Wound Center Nurse 1 #9 Right Inferior Hallux -Combined with other wound No -Current Size (cm) - Length 0.4 -Current Size (cm) - Width 0.2 -Current Size (cm) - Depth 0.3 -Total Square Cm 0.08 -Photo Taken No -Epithelialization None Present -Tunneling No -Undermining/Tunneling No -Circular Undermining No -Exudate Amt Medium -Exudate Type Serous -Wound Margin Distinct, Outline Attached -Granulation Amt Large (67-100%) -Granulation Quality [place] -Slough/Fibrin No -Necrosis Amt None Present (0 %) -Texture (Anna-wound Skin Appearance) Assessed, Scarring -Moisture (Anna-wound Skin Appearance) Assessed -Color (Anna-wound Skin Appearance) Assessed -Temperature (Anna-wound Skin No Abnormality Appearance) (Pt Warm) -Tenderness on Palpation (Anna-wound No Skin Appearance) -Ulcer Cleansing Rinsed/ Irrigated with Saline -Foul Odor after Cleansing No -Anesthetic Used 5% Lidocaine Gel - Nurse 2 - General Ulcer CM Notes Start: 04/02/23 11:22 Freq: Status: Active Protocol: Activity Type Activity Date Activity User E-sign Co-sign Detail Recorded Client Recorded Date Recorded By Document 04/02/23 11:42 [id number] 04/02/23 11:53 Document 04/18/23 14:03 [id number] 04/18/23 14:04 04/02/23 04/18/23 11:42 14:03 Wound Center Nurse 2 #9 Right Inferior Hallux -Time 11:53 14:04 -Correct Patient Yes Yes -Correct Side, Site, Position Yes Yes -Correct Procedure Yes Yes -Procedure Performed Yes Yes -Type of Procedure Debridement Debridement -Clinical Debridement Subcutaneous Subcutaneous -Tissue Removed Subcutaneous Subcutaneous -Post Debridement (cm) - Length 0.6 0.6 -Post Debridement (cm) - Width 0.6 0.5 -Post Debridement (cm) - Depth 0.2 0.5 -Total Square (Post) (cm) 0.36 0.30 -Area of Debridement (cm) - Length 0.6 0.6 -Area of Debridement (cm) - Width 0.6 0.5 -Total Square (Area) (cm) 0.36 0.30 -Tunneling No No -Undermining/Tunneling No No -Circular Undermining No No -Wound/Ulcer Outcome Not Healed Not Healed -Ulcer Cleansing Rinsed/ Rinsed/ Irrigated with Irrigated with Saline Saline -Foul Odor after Cleansing No No -Bioengineered Tissue No No -Bleeding Controlled with Pressure Pressure -Treatment Response Procedure Procedure Tolerated Well Tolerated Well -Offloading No No -Debridement - Subq, 1st 20sq cm Yes Yes Pain Scale: 0-10 Numeric Is Patient Pain Free? Yes Yes - Nurse 3 - General Ulcer D/C NN Start: 04/02/23 11:22 Freq: Status: Active Protocol: Activity Type Activity Date Activity User E-sign Co-sign Detail Recorded Client Recorded Date Recorded By Document 04/02/23 11:54 DORA [id number] 04/02/23 11:54 Document 04/18/23 14:24 CARYL [id number] 04/18/23 14:25 RB 04/02/23 04/18/23 11:54 14:24 Wound Care Center Nurse 3 #9 Right Inferior Hallux -Ulcer Cleansing Rinsed/ paint with Irrigated with betadine Saline periulcer -Foul Odor after Cleansing No -Primary Dressing Applied NonAdherent NonAdherent Contact Layer, Contact Layer, Promogran Promogran -Primary Dressing Covered/Secured with Dry Gauze, Dry Gauze, Secured with Secured with Tape Tape -Promogran 1 1 Treatment Response Procedure Tolerated Well Pain Scale: 0-10 Numeric Is Patient Pain Free? Yes Yes Teaching: Wound Center Dressing Your Wound -Person Taught Patient,Family -Teaching Method Discussion, Demonstration -Response to teaching Verbalize understanding WC - Visit Discharge Discharge Condition Stable Stable Ambulatory Status Ambulatory,Cane Ambulatory Transportation Private Auto Private Auto Accompanied by DIL Medication Reconcilliation completed & Yes No provided to patient/care provider Clinical Summary of Care Provided Yes Yes Assessment/Plan Assessment/Plan (1) Type 2 diabetes mellitus with diabetic polyneuropathy: CODE(S): E11.42 - Type 2 diabetes mellitus with diabetic polyneuropathy 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 (2) Ulcer of right foot with fat layer exposed: CODE(S): L97.512 - Non-pressure chronic ulcer of other part of right foot with fat layer exposed PLAN: Patient was examined evaluated. All findings were discussed with the patient. All questions were answered to the patient satisfaction. Patient shows no evidence of infection to the right foot at the level of the full-thickness ulceration. Educated the patient on treatment options conservative versus surgical. The patient would either benefit from a silver bunionectomy or first metatarsal phalangeal joint arthrodesis of the right foot. This is all educated to the patient and daughter especially given the patient's age of [age] years old and having to go under anesthesia versus local anesthesia treatment. The patient will think about it. Patient will be given an order for right foot weightbearing x-rays as well as for PVRs with TBI's segmental at rest bilateral. Follow-up in 1 week. (3) Peripheral vascular disease: CODE(S): I73.9 - Peripheral vascular disease, unspecified
== END 2023-04-19 23:59 | disposition home or self-care (01) ==
LOC: WC 13:30
PROVIDERS: PCP Family Medicine; Referring Provider Family Medicine; Visit Provider Podiatrist Foot & Ankle Surgery
DX: E11.621 Type 2 diabetes mellitus with foot ulcer (principal); C34.90 Malignant neoplasm of unspecified part of unspecified bronchus or lung; L97.512 Non-pressure chronic ulcer of other part of right foot with fat layer exposed; E11.42 Type 2 diabetes mellitus with diabetic polyneuropathy; Z92.3 Personal history of irradiation
CPT/HCPCS: 11042

== ENCOUNTER 2023-05-02 13:45 | Outpatient (RCR) | payer MEDICARE, OTHER, SELFPAY ==
[2023-04-20 00:17] VITALS: BP 141/77; PULSE 109; RESP 16; TEMP 36.4
--- NOTE | 2023-04-20 10:43 | ART_ITS ---
Reason For Study: Wound Procedure A bilateral lower extremity continuous wave Doppler with analog waveform analysis,segmental pressures,and ankle brachial indexes without exercise. Left Segmental Pressures Left brachial= 140mmHg. Left posterior tibial artery = 178mmHg. Left dorsalis pedis artery = 152mmHg. Left digit = 98 mmHg. Right Segmental Pressures Right brachial= 131mmHg. Right posterior tibial artery = 162mmHg. Right dorsalis pedis artery = 129mmHg. Right digit = 103 mmHg. Indices The right ankle brachial index by the posterior tibial artery is 1.16. The right ankle brachial index by the dorsalis pedis is 0.92. The right digital-brachial index is 0.74. The left ankle brachial index by the posterior tibial artery is 1.27. The left ankle brachial index by the dorsalis pedis is 1.09. The left digital-brachial index is 0.70. VL/Lower Ext Art Exam w/o Exercis Interpretation Summary Right EULALIA 1.16, normal. Doppler/PVR waveforms of the right leg normal at rest. TBI diminished, pedal/digit disease vs spasm Left EULALIA 1.27, normal. Doppler/PVR waveforms of the left leg normal at rest. TB I diminished, pedal/digit disease vs spasm Ordering Physician: Joaquim Suárez Referring Physician: Luis Johnson Performed By: Manisha Rodriguez RDCS/RVT
--- NOTE | 2023-04-20 11:22 | RAD_ITS ---
STUDY: X-RAY - RIGHT FOOT CLINICAL: Male, 78 years old. FOOT ULCER TECHNIQUE: 3 view(s) of the foot. COMPARISON: None. FINDINGS: Normal talus, calcaneus, and tarsal bones. Normal visualized subtalar, talonavicular, calcaneocuboid, tarsal and tarsometatarsal articulations. Normal metatarsi. There is degenerative arthrosis of the metatarsophalangeal joint of the hallux . Normal tibial and fibular sesamoid bones. There is degenerative arthrosis of the interphalangeal joint of the great toe. Normal phalanges of the great toe. Normal second through fifth metatarsophalangeal joints. Age consistent PIP and DIP joint arthrosis. No phalangeal fracture or suspicious osseous lesion Nonspecific soft tissue swelling medial to the first MTP joint RAD/Foot min 3 Views IMPRESSION: Age consistent degenerative changes, no acute fracture or suspicious osseous lesion Nonspecific soft tissue swelling medial to the first MTP joint Electronically Signed: Drake Ryder MD at 13:04 EDT ,
[2023-04-25 14:04] VITALS: BP 108/62; PULSE 96; RESP 18; TEMP 36.6
--- NOTE | 2023-04-25 16:42 | PCM.WC.PN ---
History of Present Illness Date of Service: 04/25/23 Chief Complaint: right medial foot ulcer History of Wound: This 78-year-old male returns to the wound healing clinic for reoccurrence of a right medial foot ulcer. Patient with diabetic neuropathic. 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 Patient offloading right foot with surgical shoe. Wound culture from 07/18/22 positive for Staphylococcus pseudintermediu, he completed Augmentin. Wound culture from 01/08/23 positive for Staphylococcus pseudintermediu, he completed the Augmentin BID. Vascular:? 12/19/21 - Right EULALIA - 1.15, Left EULALIA 1.06.? Right digital 0.74, Left digital 0.71, bilateral triphasic. Venous studies showed bilateral no DVT, Bilateral calf with primary veins with reflux, bilateral SPJ reflux. Wound care - He completed 10 applications of Epifix. Bactroban ointment covered with adaptic and topped with gauze. Patient denies constitutional's or pains at this time. No other complaints. Subjective Subjective Mr. Gunter is a diabetic 78-year-old male presenting to the wound care center today with continued follow-up of his full-thickness ulceration to the medial evidence of his first metatarsophalangeal joint right foot. Patient has been doing home wound care and states that he notices some improvement. In regards to surgery, he would like to move forward with minimal invasive surgery to remove the bump off the side of his big toe to help heal his chronic ulceration. He understands all risk and benefits. He would like to move forward. He denies trauma. Denies constitutional symptoms. No other pedal complaints at this time. Objective Data Objective Data Vital Signs: Vital Signs Temp Pulse Resp BP O2 Del Method 97.9 F 96 18 108/62 Room Air 04/25/23 14:04 04/25/23 14:04 04/25/23 14:04 04/25/23 14:04 04/25/23 14:04 Oxygen Delivery Method Room Air Lab / Micro Data Attestation: I reviewed the patient's lab results. Physical Exam Narrative Neurovascular status unchanged. Nonpitting edema appreciated to the right foot. Full-thickness ulceration appreciated to the medial eminence of the right lower extremity. Wound size measures 1.0 x 0.7 x 0.4 cm after debridement. Sanguinous drainage noted. No pain with calf compression. Excisional debridement down to including subcutaneous tissue with number 5 mm dermal curette to the medial aspect of the first metatarsal phalangeal joint right foot. Predebridement measurements are 0.6 x 0.5 x 0.3 cm. Postdebridement measurements are 1.0 x 0.7 x 0.4 cm. Debridement Note Debridement Note Debridement Free Text: Excisional debridement down to including subcutaneous tissue with number 5 mm dermal curette to the medial aspect of the first metatarsal phalangeal joint right foot. Predebridement measurements are 0.6 x 0.5 x 0.3 cm. Postdebridement measurements are 1.0 x 0.7 x 0.4 cm. Post-Debridement Measurements and Additional Note: Post-Debridement Measurements/Treatment - Nurse 1 - General Ulcer Assessment Start: 04/25/23 14:04 Freq: Status: Active Protocol: URBAN.LOWMICHOACANOT Activity Type Activity Date Activity User E-sign Co-sign Detail Recorded Client Recorded Date Recorded By Document 04/25/23 14:04 [id number] 04/25/23 14:11 04/25/23 14:04 - Today's Visit Information Type of service Follow-up Visit (Physician/ARMOURED [employer] ESCORT ) Arrival Mode Ambulatory Accompanied by Carly- Daughter- in- law Patient Identification Verified (Name & Yes ) Finger Stick Blood Sugar(mg/dl) (if 155 indicated): Blood Sugar Stated by Patient Vital Signs Temperature (97.8 F-99.1 F) 97.9 F Temperature Source Temporal Pulse Rate (60-100) 96 Pulse Location Monitor Respiratory Rate (12-18) 18 Respiratory rate source Observation Oxygen Delivery Method Room Air Blood Pressure (90/60-120/80) 108/62 Blood Pressure Mean (mm Hg) 77 Source Monitor Position Semi-Fowlers Blood Pressure Location Left Arm History Since Last Visit- (Skip if this is Patient's initial visit) Have you changed medications since your No last visit? Any new allergies or adverse reactions No Had a fall/change in ADL's that may No increase risk of falls Signs or symptoms of abuse and/or No neglect since last visit Have you been in the hospital since your No last visit? Has dressing in place as prescribed Yes Has compression in place as prescribed No Has offloadiing in place as prescribed No Experienced any changes in pain level or No management Left Footwear Regular Shoe Right Footwear Regular Shoe Pain Scale: 0-10 Numeric Is Patient Pain Free? Yes - Nurse 1 - General Ulcer Measurement Start: 04/25/23 14:04 Freq: Status: Active Protocol: Activity Type Activity Date Activity User E-sign Co-sign Detail Recorded Client Recorded Date Recorded By Document 04/25/23 14:04 [id number] 04/25/23 14:11 04/25/23 14:04 Wound Center Nurse 1 #9 Right Inferior Hallux -Current Size (cm) - Length 0.7 -Current Size (cm) - Width 0.3 -Current Size (cm) - Depth 0.2 -Total Square Cm 0.21 -Exudate Amt Small -Exudate Type Serosanguineous -Wound Margin Distinct, Outline Attached -Granulation Amt Small (1-33%) -Granulation Quality [place] -Necrosis Amt Small (1-33%) -Necrotic Tissue Type Adherent Slough -Texture (Anna-wound Skin Appearance) Assessed -Moisture (Anna-wound Skin Appearance) Assessed -Color (Anna-wound Skin Appearance) Assessed -Temperature (Anna-wound Skin No Abnormality Appearance) (Pt Warm) -Ulcer Cleansing Rinsed/ Irrigated with Saline -Foul Odor after Cleansing No -Anesthetic Used 5% Lidocaine Gel - Nurse 2 - General Ulcer CM Notes Start: 04/25/23 14:04 Freq: Status: Active Protocol: Activity Type Activity Date Activity User E-sign Co-sign Detail Recorded Client Recorded Date Recorded By Document 04/25/23 14:19 [id number] 04/25/23 14:24 04/25/23 14:19 Wound Center Nurse 2 -Time 14:19 -Correct Patient Yes -Correct Side, Site, Position Yes -Correct Procedure Yes -Procedure Performed Yes -Type of Procedure Debridement -Clinical Debridement Subcutaneous -Tissue Removed Subcutaneous -Post Debridement (cm) - Length 1.0 -Post Debridement (cm) - Width 0.7 -Post Debridement (cm) - Depth 0.4 -Total Square (Post) (cm) 0.70 -Area of Debridement (cm) - Length 1.0 -Area of Debridement (cm) - Width 0.7 -Total Square (Area) (cm) 0.70 -Tunneling No -Undermining/Tunneling No -Circular Undermining No -Wound/Ulcer Outcome Not Healed -Ulcer Cleansing Rinsed/ Irrigated with Saline -Foul Odor after Cleansing No -Bioengineered Tissue No -Bleeding Controlled with Pressure -Treatment Response Procedure Tolerated Well -Offloading Yes -Type of Offloading Surgical Shoe -Debridement - Subq, 1st 20sq cm Yes Pain Scale: 0-10 Numeric Is Patient Pain Free? Yes - Nurse 3 - General Ulcer D/C NN Start: 04/25/23 14:04 Freq: Status: Active Protocol: Activity Type Activity Date Activity User E-sign Co-sign Detail Recorded Client Recorded Date Recorded By Document 04/25/23 14:36 [id number] 04/25/23 14:40 04/25/23 14:36 Wound Care Center Nurse 3 #9 Right Inferior Hallux -Ulcer Cleansing Rinsed/ Irrigated with Saline -Primary Dressing Applied Promogran -Primary Dressing Covered/Secured with Dry Gauze, Secured with Tape -Promogran 1 Pain Scale: 0-10 Numeric Is Patient Pain Free? Yes WC - Visit Discharge Discharge Condition Stable Ambulatory Status Ambulatory,Cane Transportation Private Auto Medication Reconcilliation completed & No provided to patient/care provider Clinical Summary of Care Provided Yes Assessment/Plan Assessment/Plan (1) Type 2 diabetes mellitus with diabetic polyneuropathy: CODE(S): E11.42 - Type 2 diabetes mellitus with diabetic polyneuropathy QUALIFIERS: Diabetes mellitus buttermaker insulin use: with buttermaker use Qualified Code(s): E11.42 - Type 2 diabetes mellitus with diabetic polyneuropathy; Z79.4 - shelter (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 of insulin PLAN: Patient was examined evaluated. All findings were discussed with the patient. All questions were answered to the patient's satisfaction. Long discussion with the patient regarding surgical intervention versus conservative. Patient states that he has done conservative treatment for multiple years and would like a permanent fix due to the recurrence of the ulcer on the medial aspect of the first metatarsophalangeal joint right foot. Risk and benefits were discussed with the patient great detail. All complications were educated to the patient and his daughter who are understanding. We will move forward with booking with local block to the right foot and bur down with MIS bur, the prominence along the medial aspect of the first metatarsal head right foot. Patient will follow-up in 1 week before surgery. (2) Ulcer of left lower extremity with fat layer exposed: CODE(S): L97.922 - Non-pressure chronic ulcer of unspecified part of left lower leg with fat layer exposed PLAN: Excisional debridement down to including subcutaneous tissue with number 5 mm dermal curette to the medial aspect of the first metatarsal phalangeal joint right foot. Predebridement measurements are 0.6 x 0.5 x 0.3 cm. Postdebridement measurements are 1.0 x 0.7 x 0.4 cm. (3) Peripheral vascular disease: CODE(S): I73.9 - Peripheral vascular disease, unspecified PLAN: Reviewed the patient's PVRs which show to be normal. Right EULALIA is 1.6, left EULALIA is 1.7. Right TBI's are 0.74. Left TBI's are 0.70.
[2023-05-02 13:50] VITALS: BP 113/63; PULSE 97; RESP 18
--- NOTE | 2023-05-02 17:16 | PCM.WC.PN ---
History of Present Illness Date of Service: 05/02/23 Chief Complaint: right medial foot ulcer History of Wound: This 78-year-old male returns to the wound healing clinic for reoccurrence of a right medial foot ulcer. Patient with diabetic neuropathic. 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 Patient offloading right foot with surgical shoe. Wound culture from 07/18/22 positive for Staphylococcus pseudintermediu, he completed Augmentin. Wound culture from 01/08/23 positive for Staphylococcus pseudintermediu, he completed the Augmentin BID. Vascular:? 12/19/21 - Right EULALIA - 1.15, Left EULALIA 1.06.? Right digital 0.74, Left digital 0.71, bilateral triphasic. Venous studies showed bilateral no DVT, Bilateral calf with primary veins with reflux, bilateral SPJ reflux. Wound care - He completed 10 applications of Epifix. Bactroban ointment covered with adaptic and topped with gauze. Patient denies constitutional's or pains at this time. No other complaints. Subjective Subjective Mr. Gunter is a 78-year-old diabetic male seen at the wound care center today for follow-up of full-thickness ulceration to the medial eminence of the first metatarsophalangeal joint. Patient has been doing home wound care himself. He states his wound is getting a little better but is looking forward to having surgery to help heal the wound completely. He denies trauma. Denies constitutional symptoms. No other pedal complaints at this time. Objective Data Objective Data Vital Signs: Vital Signs Temp Pulse Resp BP O2 Del Method 97.9 F 97 18 113/63 Room Air 04/25/23 14:04 05/02/23 13:50 05/02/23 13:50 05/02/23 13:50 05/02/23 13:50 Oxygen Delivery Method Room Air Lab / Micro Data Attestation: I reviewed the patient's lab results. Physical Exam Narrative Neurovascular status unchanged. Ulceration appreciated to the medial evidence of the first metatarsal phalangeal joint of the right foot. Ulceration measures 0.6 x 0.7 x 0.3 cm. Wound base is granular. Hyperkeratotic periwound rim. No pain on palpation. No pain with calf compression. Excision debridement down to and including subcutaneous tissue of the medial aspect of the first metatarsophalangeal joint with a number 5 mm dermal curette without incident. Predebridement measurements were 0.5 x 0.5 x 0.2 cm. Postdebridement measurements are 0.6 x 0.7 x 0.3 cm. Wound was dressed with Cass, Betadine paint and sterile Band-Aid. Patient is to call the office to schedule surgical intervention. Const alert, oriented x3 and no apparent distress Debridement Note Debridement Note Debridement Free Text: Excision debridement down to and including subcutaneous tissue of the medial aspect of the first metatarsophalangeal joint with a number 5 mm dermal curette without incident. Predebridement measurements were 0.5 x 0.5 x 0.2 cm. Postdebridement measurements are 0.6 x 0.7 x 0.3 cm. Wound was dressed with Cass, Betadine paint and sterile Band-Aid. Patient is to call the office to schedule surgical intervention. Post-Debridement Measurements and Additional Note: Post-Debridement Measurements/Treatment - Nurse 1 - General Ulcer Assessment Start: 04/25/23 14:04 Freq: Status: Active Protocol: HEMA Activity Type Activity Date Activity User E-sign Co-sign Detail Recorded Client Recorded Date Recorded By Document 04/25/23 14:04 [id number] 04/25/23 14:11 Document 05/02/23 13:50 [facility] [id number] 05/02/23 13:55 [facility] 04/25/23 05/02/23 14:04 13:50 - Today's Visit Information Type of service Follow-up Visit Follow-up Visit (Physician/COUNTERINTELLIGENCE ANALYST (Physician/COUNTERINTELLIGENCE ANALYST ) ) Arrival Mode Ambulatory Ambulatory,Cane Transfer Assistance None Transfer Assist (Other) WEI Accompanied by Carly- Daughter- in- law Patient Identification Verified (Name & Yes Yes ) Patient Requires Transmission-Based No Precautions Finger Stick Blood Sugar(mg/dl) (if 155 indicated): Blood Sugar Stated by Patient Vital Signs Temperature (97.8 F-99.1 F) 97.9 F Temperature Source Temporal Pulse Rate (60-100) 96 97 Pulse Location Monitor Monitor Respiratory Rate (12-18) 18 18 Respiratory rate source Observation Observation Oxygen Delivery Method Room Air Room Air Blood Pressure (90/60-120/80) 108/62 113/63 Blood Pressure Mean (mm Hg) 77 79 Source Monitor Monitor Position Semi-Fowlers Sitting Blood Pressure Location Left Arm Left Arm History Since Last Visit- (Skip if this is Patient's initial visit) Have you changed medications since your No No last visit? Any new allergies or adverse reactions No No Had a fall/change in ADL's that may No No increase risk of falls Signs or symptoms of abuse and/or No No neglect since last visit Have you been in the hospital since your No No last visit? Has dressing in place as prescribed Yes Yes Has compression in place as prescribed No N/A Has offloadiing in place as prescribed No Yes Experienced any changes in pain level or No No management Left Footwear Regular Shoe Regular Shoe Right Footwear Regular Shoe Regular Shoe Pain Scale: 0-10 Numeric Is Patient Pain Free? Yes Yes - Nurse 1 - General Ulcer Measurement Start: 04/25/23 14:04 Freq: Status: Active Protocol: Activity Type Activity Date Activity User E-sign Co-sign Detail Recorded Client Recorded Date Recorded By Document 04/25/23 14:04 [id number] 04/25/23 14:11 Document 05/02/23 13:50 [facility] [id number] 05/02/23 13:55 [facility] 04/25/23 05/02/23 14:04 13:50 Wound Center Nurse 1 #9 Right Inferior Hallux -Combined with other wound No -Current Size (cm) - Length 0.7 0.5 -Current Size (cm) - Width 0.3 0.5 -Current Size (cm) - Depth 0.2 0.3 -Total Square Cm 0.21 0.25 -Epithelialization None Present -Tunneling No -Undermining/Tunneling No -Circular Undermining No -Exudate Amt Small Medium -Exudate Type Serosanguineous Serosanguineous -Wound Margin Distinct, Distinct, Outline Outline Attached Attached -Granulation Amt Small (1-33%) Large (67-100%) -Granulation Quality [place] -Slough/Fibrin Yes -Necrosis Amt Small (1-33%) Small (1-33%) -Necrotic Tissue Type Adherent Slough Adherent Slough -Texture (Anna-wound Skin Appearance) Assessed Assessed, Localized Edema ,Scarring -Moisture (Anna-wound Skin Appearance) Assessed Assessed, Maceration -Color (Anna-wound Skin Appearance) Assessed Assessed -Temperature (Anna-wound Skin No Abnormality No Abnormality Appearance) (Pt Warm) (Pt Warm) -Tenderness on Palpation (Anna-wound No Skin Appearance) -Ulcer Cleansing Rinsed/ Rinsed/ Irrigated with Irrigated with Saline Saline -Foul Odor after Cleansing No No -Anesthetic Used 5% Lidocaine 5% Lidocaine Gel Gel - Nurse 2 - General Ulcer CM Notes Start: 04/25/23 14:04 Freq: Status: Active Protocol: Activity Type Activity Date Activity User E-sign Co-sign Detail Recorded Client Recorded Date Recorded By Document 04/25/23 14:19 [id number] 04/25/23 14:24 Document 05/02/23 14:29 [id number] 05/02/23 14:31 04/25/23 05/02/23 14:19 14:29 Wound Center Nurse 2 #9 Right Inferior Hallux -Time 14:19 14:29 -Correct Patient Yes Yes -Correct Side, Site, Position Yes Yes -Correct Procedure Yes Yes -Procedure Performed Yes Yes -Type of Procedure Debridement Debridement -Clinical Debridement Subcutaneous Subcutaneous -Tissue Removed Subcutaneous Subcutaneous -Post Debridement (cm) - Length 1.0 0.6 -Post Debridement (cm) - Width 0.7 0.7 -Post Debridement (cm) - Depth 0.4 0.3 -Total Square (Post) (cm) 0.70 0.42 -Area of Debridement (cm) - Length 1.0 0.6 -Area of Debridement (cm) - Width 0.7 0.7 -Total Square (Area) (cm) 0.70 0.42 -Tunneling No No -Undermining/Tunneling No No -Circular Undermining No No -Wound/Ulcer Outcome Not Healed Not Healed -Ulcer Cleansing Rinsed/ Rinsed/ Irrigated with Irrigated with Saline Saline -Foul Odor after Cleansing No No -Bioengineered Tissue No No -Bleeding Controlled with Pressure Pressure -Treatment Response Procedure Procedure Tolerated Well Tolerated Well -Offloading Yes No -Type of Offloading Surgical Shoe -Debridement - Subq, 1st 20sq cm Yes Yes Pain Scale: 0-10 Numeric Is Patient Pain Free? Yes Yes - Nurse 3 - General Ulcer D/C NN Start: 09/06/23 14:04 Freq: Status: Active Protocol: Activity Type Activity Date Activity User E-sign Co-sign Detail Recorded Client Recorded Date Recorded By Document 04/25/23 14:36 [id number] 04/25/23 14:40 Document 05/02/23 14:43 [facility] [id number] 05/02/23 14:43 [facility] 04/25/23 05/02/23 14:36 14:43 Wound Care Center Nurse 3 #9 Right Inferior Hallux -Ulcer Cleansing Rinsed/ Rinsed/ Irrigated with Irrigated with Saline Saline -Foul Odor after Cleansing No -Primary Dressing Applied Promogran Promogran -Other Dressing betadine paint to anna wound -Primary Dressing Covered/Secured with Dry Gauze, Secured with Secured with Tape Tape -Promogran 1 1 Treatment Response Procedure Tolerated Well Pain Scale: 0-10 Numeric Is Patient Pain Free? Yes Yes WC - Visit Discharge Discharge Condition Stable Stable Ambulatory Status Ambulatory,Cane Ambulatory,Cane Transportation Private Auto Private Auto Accompanied by wei in law Medication Reconcilliation completed & No provided to patient/care provider Clinical Summary of Care Provided Yes Assessment/Plan Assessment/Plan (1) Type 2 diabetes mellitus with diabetic polyneuropathy: CODE(S): E11.42 - Type 2 diabetes mellitus with diabetic polyneuropathy QUALIFIERS: Diabetes mellitus long-term insulin use: with long-term use Qualified Code(s): E11.42 - Type 2 diabetes mellitus with diabetic polyneuropathy; Z79.4 - shelter (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 of insulin PLAN: Educated the patient is continue to have strictly stable control prior to surgery. Patient will be placed on a prophylactic dose of Keflex prior to surgery to help prevent any soft tissue infection prior to or after surgery. Patient was understanding. (2) Non-pressure chronic ulcer of other part of right foot with fat layer exposed: CODE(S): L97.512 - Non-pressure chronic ulcer of other part of right foot with fat layer exposed (3) Type 2 diabetes mellitus with foot ulcer: CODE(S): E11.621 - Type 2 diabetes mellitus with foot ulcer; L97.509 - Non-pressure chronic ulcer of other part of unspecified foot with unspecified severity QUALIFIERS: Diabetes mellitus long-term insulin use: with long-term use Qualified Code(s): E11.621 - Type 2 diabetes mellitus with foot ulcer; L97.509 - Non-pressure chronic ulcer of other part of unspecified foot with unspecified severity; 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 All findings discussed with the patient. All questions were answered to the patient's fax. Excision debridement down to and including subcutaneous tissue of the medial aspect of the first metatarsophalangeal joint with a number 5 mm dermal curette without incident. Predebridement measurements were 0.5 x 0.5 x 0.2 cm. Postdebridement measurements are 0.6 x 0.7 x 0.3 cm. Wound was dressed with Cass, Betadine paint and sterile Band-Aid. Patient is to call the office to schedule surgical intervention. Follow-up 1 week
== END 2023-05-19 23:59 | disposition home or self-care (01) ==
LOC: WC 13:45
PROVIDERS: PCP Family Medicine; Referring Provider Family Medicine; Visit Provider Podiatrist Foot & Ankle Surgery
DX: E11.621 Type 2 diabetes mellitus with foot ulcer (principal); C34.90 Malignant neoplasm of unspecified part of unspecified bronchus or lung; E11.51 Type 2 diabetes mellitus with diabetic peripheral angiopathy without gangrene; L97.512 Non-pressure chronic ulcer of other part of right foot with fat layer exposed; E11.42 Type 2 diabetes mellitus with diabetic polyneuropathy; Z79.4 Long term (current) use of insulin; Z92.3 Personal history of irradiation
CPT/HCPCS: 11042; 73630; 93923

== ENCOUNTER 2023-06-08 11:20 | Day surgery (SDC) | payer MEDICARE, OTHER, SELFPAY ==
[2023-06-08] VITALS (8 sets, daily range): BP systolic 116–137; BP diastolic 56–76; PULSE 103–107; RESP 14–18; TEMP 36.2–36.6; O2SAT 93–100; BMI 29.3
[2023-06-08] MEDS: 0.9% Normal Saline (500mL Bag) 500 ML 15 ML IV (12:19)
[2023-06-08 12:22] LABS: Bedside Glucose 72 mg/dL (74-106)
[2023-06-08] MEDS: Gabapentin 600 MG Tablet PO (12:30)
[2023-06-08] MEDS: Acetaminophen 500 MG Tablet 1000 MG PO (12:30)
[2023-06-08] MEDS: Cefazolin 2 GM in 0.9% Normal Saline (100mL Bag) 100 ML IV (12:31)
--- NOTE | 2023-06-08 12:48 | RAD_ITS ---
STUDY: X-RAY - RIGHT FOREFOOT CLINICAL: Male, 78 years old. Partial osteotomy of right first metatarsal head. TECHNIQUE: Single frontal view of the right foot. COMPARISON: Right foot radiographs dated 04/20/2023. FINDINGS: There is partial osteotomy of the medial aspect of the first metatarsal head. Normal second through fifth metatarsi. Normal metatarsophalangeal joint of the great toe. Normal tibial and fibular sesamoid bones. Normal interphalangeal joint of the great toe. Normal phalanges of the great toe. Normal second through fifth metatarsophalangeal joints. Normal interphalangeal joints and phalanges of the lesser toes. There is soft tissue swelling and ulceration medial to the first MTP joint. RAD/Foot 2 Views IMPRESSION: Partial osteotomy of the medial aspect of the first metatarsal head. Soft tissue swelling and ulceration medial to the first MTP joint. Electronically Signed: Everardo Cm MD at 15:33 EDT ,
--- NOTE | 2023-06-08 12:52 | PCM.OPRPT ---
Problems Associated Problem List Diagnoses (1) Non-pressure chronic ulcer of other part of right foot with fat layer exposed: (2) Hallux valgus of right foot: (3) Type 2 diabetes mellitus with foot ulcer: (4) Type 2 diabetes mellitus with diabetic polyneuropathy: Report of Operation Date of Procedure: 06/08/23 Pre-Operative Diagnosis: 1. Hallux valgus, right foot 2. Full-thickness ulceration with fat exposed nonpressure, right foot 3. Diabetes mellitus type 2 with peripheral neuropathy Post-Operative Diagnosis: 1. Hallux valgus, right foot 2. Full-thickness ulceration with fat exposed nonpressure, right foot 3. Diabetes mellitus type 2 with peripheral neuropathy Surgery/Procedure Performed:: 1. Partial osteotomy of first metatarsal, right foot 2. Surgical prep of skin graft site, right foot 3. Application of skin graft substitute 4. Delayed primary closure, right foot Description of Surgical Findings:: 1. Complete removal of the first metatarsal medial eminence with MIS bur 2. Complete ellipse of the full-thickness ulceration to the medial eminence of the right foot. 3. Complete closure of the ulceration to the medial evidence of the right foot. Surgeon: Joaquim Suárez assistant district attorney: None Type of Anesthesia: Local Special Medications: None Specimen's removed: None Drains: None Estimated Blood Loss (mL): 20 mL Fluids Replaced: Per nursing notes Description of Procedure: Indications For Operation: Mr. Gunter is a 78-year-old diabetic male who was admitted to [facility] for hallux valgus deformity as well as full-thickness ulceration chronic wound to the right foot. Patient is well-known to me at the wound care center where he has had multiple excisional debridements down to subcutaneous tissue at the wound care center. Patient's history with a chronic wound states back before he became a patient of mine, the wound today shows no evidence of infection and due to the nature of the patient's contracture of the first metatarsophalangeal joint and chronicity of the full-thickness ulceration to the right foot it had deemed necessary at this time to take the patient to the operating room to perform partial osteotomy of the medial evidence of the first metatarsal, surgical skin graft site with application of skin graft substitute with delayed primary closure of the full-thickness ulceration all of the right foot. The nature of the problem, anticipated procedures, postop recovery/convalences and risk/complications include but not limited to infection, wound healing complications, hypertrophic scarring, numbness, tingling, chronic pain, CRPS, over and under correction, recurrence of deformity, DVT and or PE and the need for further surgery have been discussed in great detail with the patient. All questions have been answered to the patient's satisfaction. There are no guarantees given as to the outcome of the procedure. Description of Procedure: The patient was brought into the operating room and placed on the operating table in supine position. The patient was not placed under general anesthesia or monitored anesthesia care nor did we use an LMA or endotracheal tube, this was performed as a local case. Next, the right lower extremity was blocked using approximately 10 cc 0.5% Marcaine plain and 10 cc of 1% Xylocaine plain all in Nixon block fashion to the right foot. No tourniquet was used at this time. Next, a timeout was then undertaken verifying the correct patient, extremity, visibility of preoperative markings, availability of the equipment. The right lower extremity was prepped and draped in normal aseptic manner. Attention was directed to the level of the hallux valgus deformity. Using a 15 blade a small stab incision was made approximately 20 mm from the first metatarsal phalangeal joint of the right foot. A Twain was used to free up the capsule and periosteum around the medial eminence of the first metatarsal. Using the D-ÉG Thermoset minimally invasive bur system, the medial evidence was burred down to allow for skin depression underneath the full-thickness ulceration of the right foot. Partial osteotomy of the medial eminence of the first metatarsal was confirmed with the C arm. The minimal invasive bur was ran and reverse to smooth out the medial eminence that was just resected. The small stab incision was flushed with copious livan of normal saline to extract all of the debris from the bur. Next, attention was directed to the full-thickness ulceration at the level of the medial eminence of the right foot. Surgical prep was performed using a rongeur down to and including subcutaneous tissue. Next using a sterile skin marker a 3-1 incision/ellipse was preformed over the full-thickness ulceration using a #15 blade. The skin was removed delicately. After removal of the skin, the new skin lines were then freed to allow for advancement of skin for delayed primary closure of the full-thickness ulceration. The full-thickness incision was flushed with copious livan of normal saline. Next, biovance 2 x 2 cm was applied to the full-thickness ulceration with 100% usage. At the time of the application there showed no evidence of infection. Next, the percutaneous incision was closed with 3-0 nylon in simple interrupted suture technique. The medial eminence incision was closed via delayed primary closure with 2-0 nylon in horizontal mattress suture technique. The right lower extremity was wiped clean and patted dry. The incision was dressed with Betadine soaked Adaptic, 4 x 4's, Kerlix and a single layer Otto compression bandage was applied. The patient tolerated the procedure and anesthesia well and apparent satisfactory condition and was transported to the PACU for further monitoring prior to discharge home. Vital signs stable and vascular status intact to all digits bilateral. Post Operative Plan: Weightbearing: Partial weightbearing to heel, right lower extremity with surgical shoe.l Antibiotics: 2 g Ancef through the IV DVT Prophylaxis: Patient is on Plavix and aspirin Claudio: None Dressing: Betadine soaked Adaptic, 4 x 4's, Kerlix, single layer Otto wrap X-Rays: Post-operative films taken on the operating room. Pain Medication: Percocet 5/325, [id number] Motrin and Tylenol Follow-up: [address] Suárez in office Grafts/Implants Used: Biovance 2 x 2 cm Complications None Admit VTE Documentation VTE Present on Admission: No VTE Mechan Device Prophylaxis: SCD's VTE Pharm Prophylaxis ordered?: Yes
[2023-06-08] MEDS: Bupivacaine Mpf 0.5% 30 ML VIAL (13:10)
[2023-06-08] MEDS: Lidocaine 1% (20 ml mdv) 20 ML Vial (13:10)
== END 2023-06-08 14:35 | disposition home or self-care (01) ==
LOC: SDC 11:24 → AC 11:25
PROVIDERS: PCP Family Medicine; Referring Provider Podiatrist Foot & Ankle Surgery; Visit Provider Podiatrist Foot & Ankle Surgery
PROC: (CPT 28292; principal; 2023-06-08 12:45)
DX: E11.621 Type 2 diabetes mellitus with foot ulcer (principal); L97.512 Non-pressure chronic ulcer of other part of right foot with fat layer exposed; J44.9 Chronic obstructive pulmonary disease, unspecified; E11.42 Type 2 diabetes mellitus with diabetic polyneuropathy; E11.22 Type 2 diabetes mellitus with diabetic chronic kidney disease; N18.32 Chronic kidney disease, stage 3b; M20.11 Hallux valgus (acquired), right foot; I25.10 Atherosclerotic heart disease of native coronary artery without angina pectoris; Z79.82 Long term (current) use of aspirin; Z79.01 Long term (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 of anticoagulants; Z79.84 Long term (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 of oral hypoglycemic drugs; Z79.899 Other long term (current) drug therapy
CPT/HCPCS: 28306; 15004; 15275; 01480; 73620; 76000; 82962; J7040

== ENCOUNTER → 2023-06-22 | Outpatient (CLI) | payer MEDICARE, OTHER, SELFPAY | END | disposition home or self-care (01) | PROVIDERS: PCP Family Medicine; Referring Provider Podiatrist Foot & Ankle Surgery; Visit Provider Podiatrist | DX: L97.519 Non-pressure chronic ulcer of other part of right foot with unspecified severity (principal) | CPT/HCPCS: 87070; 87075; 87077; 87101; 87186; 87205 ==

== ENCOUNTER → 2023-07-26 | Outpatient (CLI) | payer MEDICARE, OTHER, SELFPAY ==
[2023-07-26 13:49] LABS: Allen Test Positive; Base Excess -1 mmol/L (-2 to +2); Bicarbonate 24.8 mmol/L (22-26); Blood Gas Specimen Type ART; Mode Not entered; PO2 77 mmHG (75-100); SITE R Radial; SO2 95 % (95-99); Total Carbon Dioxide 26 mmol/L; pCO2 42.6 mmHg (35-45); pH 7.37 (7.35-7.45)
[2023-07-26 18:53] LABS: Anion Gap 2 (5-15); BUN 53 mg/dL (7-18); BUN/Creat Ratio 25.4 RATIO (10-20); Calcium,Total 9.3 mg/dL (8.5-10.1); Chloride 105 mmol/L (98-107); Creatinine, Serum 2.09 mg/dL (0.70-1.30); EST Glomerular Filtration Rate 33 mL/min (>60); Est Glom Filt Rate - Afr Amer 40 mL/min (>60); Glucose 99 mg/dL (74-106); Potassium 4.8 mmol/L (3.5-5.1); Sodium Level 135 mmol/L (136-145)
[2023-07-26 18:55] LABS: BNP,B-Type NATRIURETIC PEPTIDE 233.5 pg/mL (0-100)
[2023-07-27 16:07] LABS: Absolute Lymphocyte Count 1.22 X10^3/uL (0.83-4.51); Basophil# 0.08 X10^3/uL; Basophil% 0.7 % (0-1); Eosinophils% 1.7 % (0-5); Hematocrit 39.4 % (40-54); Hemoglobin 12.5 g/dL (13.0-16.5); Lymphocyte # 1.22 X10^3/ul (0.83-4.51); Lymphocyte % 10.4 % (19-41); Mean Corp Hgb Conc 31.7 g/dL (32-36); Mean Corpuscular Hgb 27.8 pg (27.0-32.0); Mean Corpuscular Volume 87.6 fL (80-94); Mean Platelet Vol. 10.6 fl (6.2-12.0); Monocyte% 10.2 % (0-10); NRBC Flagged by Analyzer 0 % (0-5); Neutrophil # 8.96 X10^3/uL (2.7-7.7); Neutrophil % 76.3 % (47-70); Platelet Count 264 K/mm3 (150-450); RBC Distribution Width CV 16.3 % (11.6-14.6); White Blood Count 11.7 K/mm3 (4.4-11.0)
== END | disposition home or self-care (01) ==
PROVIDERS: Physician Assistant Medical; PCP Family Medicine; Referring Provider Nurse Practitioner Acute Care; Visit Provider Nurse Practitioner Acute Care
DX: R06.02 Shortness of breath (principal); J43.2 Centrilobular emphysema; R06.09 Other forms of dyspnea; I49.9 Cardiac arrhythmia, unspecified
CPT/HCPCS: 36415; 36600; 80048; 82803; 83880; 85025

== ENCOUNTER → 2023-08-22 | Outpatient (CLI) | payer MEDICARE, OTHER, SELFPAY ==
--- NOTE | 2023-08-22 13:28 | ECHOCS_ITS ---
Reason For Study: HAMILTON, Afib, Aflutter Procedure This was a 2D Doppler, Color Flow transthoracic echocardiogram. Contrast injection was performed. Exam performed in department. Left Ventricle Normal LV size. Left ventricular systolic function is lower limits of normal. The estimated ejection fraction is 53 %. No regional wall motion abnormalities noted. Right Ventricle Normal RV size. Normal systolic function. Atria The left atrium is mildly enlarged. Normal right atrium. Mitral Valve There is moderate mitral annular calcification. Mild-Moderate (1-2+) mitral valve insufficiency. Tricuspid Valve Normal tricuspid valve. Mild tricuspid valve insufficiency. Pulmonary artery systolic pressure is 28 mmHg. Aortic Valve Trisinus/trileaflet aortic valve. Mild diffuse aortic valve thickening. Pulmonic Valve Normal pulmonic valve. Mild (1+) pulmonic valve insufficiency. Great Vessels Normal aortic root. The pulmonary artery is normal size. Inferior vena cava collapse with sniff. Pericardium/Pleural No pericardial effusion. Medication Diluted definity 3ml given slow IV push to enhance endocardial definition. MMode/2D Measurements & Calculations LVIDd: 4.6 cm IVSd: 1.1 cm Ao root diam: 2.6 cm LVIDs: 3.3 cm LVPWd: 1.1 cm RVDd: 3.3 cm FS: 29.6 % LAV(MOD-bp): 61.4 ml LVAd ap4: 23.9 cm2 SV(MOD-sp4): 35.0 ml LAV(MOD-bp) Indexed: 32.1 ml/m2 LVLd ap4: 6.7 cm LAV(MOD-sp2): 66.5 ml EDV(MOD-sp4): 69.5 ml LAV(MOD-sp4): 52.7 ml EDV(sp4-el): 71.9 ml LVAs ap4: 15.9 cm2 LVLs ap4: 6.2 cm ESV(MOD-sp4): 34.5 ml ESV(sp4-el): 34.6 ml EF(MOD-sp4): 50.4 % EF(sp4-el): 51.8 % SV(sp4-el): 37.3 ml LA A4 area: 20.3 cm2 LA dimension(2D): 4.4 cm RA A4 area: 11.9 cm2 Doppler Measurements & Calculations MV E max manav: 160.8 cm/sec Lat Peak E' Manav: 8.2 cm/sec Med Peak E' Manav: 3.4 cm/sec E/E' lat: 19.7 E/E' med: 46.9 MV V2 max: 168.0 cm/sec Ao V2 max: 81.9 cm/sec LV V1 max: 69.3 cm/sec MV max P.3 mmHg Ao max P.7 mmHg LV V1 max P.0 mmHg MV V2 mean: 85.6 cm/sec Ao V2 mean: 59.1 cm/sec MV mean P.7 mmHg Ao mean P.5 mmHg MV V2 VTI: 39.9 cm Ao V2 VTI: 14.8 cm PA V2 max: 110.1 cm/sec TR max manav: 250.3 cm/sec TR max P.1 mmHg ECHO/Echo Complete W/ Contrast Interpretation Summary Normal LV size. Left ventricular systolic function is lower limits of normal. The estimated ejection fraction is 53 %. Pulmonary artery systolic pressure is 28 mmHg. Contrast injection was performed. Ordering Physician: Leslie Arriaga Referring Physician: Luis Johnson Performed By: Manisha Rodriguez RDCS, RVT
== END | disposition home or self-care (01) ==
LOC: CVS 13:27
PROVIDERS: PCP Family Medicine; Referring Provider Physician Assistant Medical; Visit Provider Physician Assistant Medical
DX: R06.09 Other forms of dyspnea (principal)
CPT/HCPCS: 93306; Q9957; A4216; C8929

== ENCOUNTER → 2023-10-12 | Outpatient (CLI) | payer MEDICARE, OTHER, SELFPAY ==
--- NOTE | 2023-10-12 12:55 | CT_ITS ---
STUDY: CT CHEST WITH CONTRAST REASON FOR EXAM: Male, 78 years old. Monitor lung ca RADIATION DOSAGE (If Supplied By Facility): CTDIvol = ( 14.30 ) mGy, DLP = ( 534.41 ) mGycm TECHNIQUE: Transaxial imaging was performed following intravenous administration of IV 100mL Isovue-300. Multiplanar coronal and sagittal images were reformatted. Individualized dose optimization techniques were used for this CT. COMPARISON: Comparison is made with prior study dated April 10, 2023. FINDINGS: CHEST Essentially stable spiculated mass in the right upper lobe. There is a new 1.7 cm x 1.4 cm irregular nodule with bronchi seen within it in the anterior aspect of the right lower lobe. This may represent focal area of the infiltration. Since prior study, there is an increase in the markings in the right upper lobe most likely secondary to post radiation scarring and/or atelectasis. Stable small right pleural effusion. Stable blebs seen in the left lower lobe. Sternal cerclage wires and vascular clips are present from a prior sternotomy and coronary artery bypass graft procedure (CABG). There are calcifications of the coronary arteries. Normal mediastinum. Normal hilar regions. Normal unenhanced pulmonary arteries. There is atherosclerotic calcification of the aortic arch with tortuosity and elongation of the aortic arch and descending thoracic aorta. There are multi-level degenerative changes of the thoracic spine. Mild enlargement of the left adrenal gland. This is unchanged. CT/Chest WITH Contrast IMPRESSION: Stable spiculated nodule in the right upper lobe. New nodular density in the anterior lateral aspect of the right lower lobe suggestive of either infiltration and/or atelectasis secondary to prior radiation therapy. Electronically Signed: Kenyon Flores MD at 15:16 EST ,
--- OUTSIDE RECORDS SUMMARY | 2023-10-12 13:28 | XMS RPT_ITS | CCD ---
Author Name Unknown Address [address] [place] [address] Organization [facility] Care Team Providers Care Cashier Assistant Name Role Phone Tonio Johnson DO Primary Care Provider JESSIE RODRIGUEZ Referring Unavailable TONIO JOHNSON Primary Care Unavailable TONIO JOHNSON Primary Care Unavailable Allergies Allergy Classification Reported Allergen(s) Allergy Type Date of Onset Reaction(s) Facility (5 sources) Ibuprofen; 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: [IBUPROFEN] Drug Allergy 04-05-2022 Shortness of Breath [facility] Work Phone: Medications Current Medications Medication Drug Class(es) Dates Sig (Normalized) Sig (Original) cephalexin 500 mg oral capsule (3 sources) Cephalosporin Antibacterial Start: 04-05-2022 End: 04-15-2022 take 1 capsule by mouth three times daily cephALEXin (KEFLEX) 500 mg capsule Indications: Burning with urination Take 1 capsule by mouth three times daily for 10 days. 30 capsule 0 04/05/2022 04/15/2022 Active Completed/Discontinued Medications Medication Drug Class(es) Dates Sig (Normalized) Sig (Original) aspirin 81 mg delayed release oral tablet (4 sources) Platelet Aggregation Inhibitor, Nonsteroidal Anti-inflammatory Drug Start: 08-22-2017 aspirin, enteric coated (ASPIRIN, ENTERIC COATED) 81 mg EC tablet Take by mouth. 0 08/22/2017 Active Problems Problem Classification Problem Date Documented Da te Episodic/Chronic Genitourinary symptoms and ill-defined conditions (1 source) Scalding pain on urination ; 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: [Dysuria] Episodic Immunizations and screening for infectious disease (1 source) Suspected disease caused by 2019-nCoV; 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: [Suspected COVID-19 virus infection] Episodic Osteoarthritis (4 sources) Osteoarthritis; 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: [Osteoarthrosis, unspecified whether generalized or localized, lower leg] Onset: 04-14-2014 04-14-2014 Chronic Other lower respiratory disease (1 source) Cough; 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: [Acute cough] Episodic Unclassified (1 source) Acute cough; 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: [Acute cough] Onset: 04-05-2022 Results Test Name Value Interpretation Reference Range Facil ity Vital Signs Date Time Vital Sign Value Performing Clinician Facility 04-05-2022 13:34-0400 Body temperature 101.61 [degF] Jessie Rodriguez APRN.[facility] Work Phone: [facility] 04-05-2022 13:34-0400 Body weight 87.09 kg Jessie Rodriguez APRN.[facility] Work Phone: [facility] 04-05-2022 13:34-0400 Diastolic blood pressure 76 mm[Hg] Jessie Rodriguez APRN.[facility] Work Phone: [facility] 04-05-2022 13:34-0400 Heart rate 76 /min Jessie Rodriguez APRN.[facility] Work Phone: [facility] 04-05-2022 13:34-0400 Respiratory rate 16 /min Jessie Rodriguez APRN.[facility] Work Phone: [facility] 04-05-2022 13:34-0400 SaO2% (BldA) [Mass fraction] 94 % Jessie Rodriguez APRN.[facility] Work Phone: [facility] 04-05-2022 13:34-0400 Systolic blood pressure 122 mm[Hg] Jessie Rodriguez APRN.[facility] Work Phone: [facility] Encounters Encounter Date Encounter Type Care Provider Facility Start: 07-28-2022 Telephone encounter Jessie Parra APRN.[facility] Work Phone: [facility] Procedures Date Procedure Procedure Detail Performing Clinician Start: 04-05-2022 Urnls dip stick/tabl et rgnt auto w/o microscopy Onelia Cuevas THIRD OFFICER.[facility] Work Phone: Plan of Treatment Date Care Activity Detail Author Start: 04-20-2022 Influenza vaccination INFLUENZA (#1) [facility] Start: 04-05-2022 End: 04-19-2022 Influenza virus A and B RNA and SARS-CoV-2 (COVID-19) N gene panel - Respiratory specimen by BRYAN with probe detection [facility] Work Phone: Payers Date Payer Category Payer Medicare MEDICARE MEDICAR E A AND B [id number] 2009-Present [phone] [address] [address] [place] [address] Medicare [id number] 2009 Medicare [id number] 2009 [employer] ( and others) [id number] 2009 Unknown FOR LIFE [id number] 2009-Present [phone] [address] [place] [address] Indemnity [id number] Social History Date Type Detail Facility Start: 04-05-2022 [facility] Work Phone: History of tobacco use Current smoker [facility] Work Phone: History of tobacco use Cigarette Smoker [facility] Work Phone: Start: 04-05-2022 Tobacco use and exposure Former smokeless tobacco user [facility] Work Phone: Start: 1945 Sex Assigned At Not on file [facility] Start: 03-26-2022 End: 04-05-2022 Exposure to SARS-CoV-2 (event) Not sure [facility] Work Phone: Note 08-04-2022 Telephone Encounter - Liseth Ortiz Ma - 08/04/2022 9:59 AM ESTTelephone Encounter - Jessie Rodriguez APRN.CNP - 07/28/2022 1:43 PM EST Note Date & Type Note Facility 08-04-2022 Miscellaneous Notes Formattin g of this note might be different from the original. Pt PCP outside [facility]. Call to pt and notified him of Providers message. Pt states that he did talk to him. FYI. Liseth Ortiz Ma In reviewing patient's chart I do not see that he has had any follow up done in regards to his actionable chest xray finding. I left a message on patient's voicemail for him to call back and advise. Jessie Rodriguez APRN.[facility] documented in this encounter [facility] Note 04-08-2022 Telephone Encounter - Ashley Kelley - 04/08/2022 2:56 PM EDTTelephone Encounter - Ashley Kelley - 04/08/2022 9:18 AM EDTTelephone Encounter - Ashley Kelley - 04/07/2022 5:48 PM EDT Note Date & Type Note Facility 04-08-2022 Miscellaneous Notes Formattin g of this note might be different from the original. Notified pt of results, daughter will call to get information on restrictions. Ashley Kelley left message on machine to give call back, different number from pharmacy. [phone]. Ashley Kelley Unable to reach patient. Mailbox full/Mailbox not set up/ Number incorrect. Please try again later. Ashley Kelley Still unable to reach patient and contact lens blocker and cutter is spouse with same number.Sigrid Monroe LPN Unable to reach patient and rings a fast busy-try again later.Sigrid Monroe LPN COVID test was positive. Stay home for 5 days from symptom onset. If you have no symptoms or your symptoms are resolving after 5 days, you can leave your house. Continue to wear a mask around others for 5 additional days. If you have a fever, continue to stay home until your fever resolves. Treat with supportive care. F/u with worsening symptoms; ER if severe. documented in this encounter [facility] Progress note 04-05-2022 Note Date & Type Note Facility 04-05-2022 Note HNO ID: [id number] Author: Jessie Rodriguez APRN.[facility] Service: ? Author Type: Nurse Practitioner Type: Progress Notes Filed: 04/05/2022 3:51 PM Note Text: Subjective HPI Simone Gunter is a 77 year old male who presents with a cough x 1 week. Also having burning with urination for one week. He has had a fever today. He denies any known sick contacts. He has taken coricidin for his cough. Review of Systems Constitutional: Positive for fever and malaise/fatigue. HENT: Positive for congestion. Respiratory: Positive for cough. Gastrointestinal: Negative for nausea and vomiting. Genitourinary: Positive for dysuria. Musculoskeletal: Negative for back pain. BP 122/76 Pulse 76 Temp (!) 38.7 ?C (101.6 ?F) Resp 16 Wt 87.1 kg (192 lb) SpO2 94% No past medical history on file. No past surgical history on file. ALLERGIES Ibuprofen MEDICATIONS aspirin, enteric coated (ASPIRIN, ENTERIC COATED) 81 mg EC tablet Take by mouth. glyBURIDE (DIABETA) 2.5 mg tablet Take 2.5 mg by mouth. clopidogrel (PLAVIX) 75 mg tablet colestipol (COLESTID) 1 gram tablet LANTUS SOLOSTAR U-100 INSULIN 100 unit/mL (3 mL) lisinopril 2.5 mg tablet pravastatin (PRAVACHOL) 20 mg tablet JANUVIA 50 mg tablet cholecalciferol, vitamin D3, (VITAMIN D-3) 10 mcg (400 unit) cap Take 400 Units by mouth once daily. fish oil/borage/flax/om3,6,9 1 (OMEGA 3-6-9 COMPLEX ORAL) Take by mouth. lutein 10 mg tab Take by mouth. MULTIVITAMIN ORAL Take by mouth. No family history on file. Social History Tobacco Use Smoking status: Former Types: Cigarettes Smokeless tobacco: Former Objective Physical Exam Vitals and nursing note reviewed. Constitutional: Appearance: Normal appearance. HENT: Mouth/Throat: Mouth: Mucous membranes are moist. Pharynx: Oropharynx is clear. No oropharyngeal exudate or posterior oropharyngeal erythema. Cardiovascular: Rate and Rhythm: Normal rate and regular rhythm. Heart sounds: Normal heart sounds. Pulmonary: Effort: Pulmonary effort is normal. No respiratory distress. Breath sounds: Normal breath sounds. No wheezing or rales. Skin: General: Skin is warm and dry. Findings: No erythema or rash. Neurological: Mental Status: He is alert. ASSESSMENT/PLAN: 1. Burning with urination - ICD9: 788.1, ICD10: R30.0 (primary diagnosis) acute - UA positive for marcela esterase, hematuria, and proteinuria - Send urine for culture - Begin treatment with cephalexin for 10 days - Patient education for prevention given - UA DIP, URINE (POC) - URINE CULTURE - CEPHALEXIN 500 MG CAPSULE 2. Acute cough - ICD9: 786.2, ICD10: R05.1 - XR CHEST 2V FRONTAL/LAT RESULT: Lines, tubes, and devices: None. Lungs and pleura: There is a round approximately 4.5 cm mass in the region of the right upper lobe. No pleural effusion or pneumothorax. Cardiomediastinal silhouette: Stable cardiomediastinal silhouette with postsurgical changes from median sternotomy/CABG procedure. Bones and soft tissues: Degenerative changes are present within the thoracic spine. IMPRESSION: 4.5 cm right upper lobe round mass. Findings suspect for neoplasm until proven otherwise. Further evaluation with contrast-enhanced CT chest is advised. -Result will be faxed to Dr. Johnson today, please call his office today to schedule follow up appointment. 3. Suspected COVID-19 virus infection - ICD9: V01.79, ICD10: Z20.822 - COVID WITH FLUA+B, ROUTINE Jessie Rodriguez, THIRD OFFICER.[facility] Progress note 04-05-2022 Note Date & Type Note Facility 04-05-2022 Note HNO ID: [id number] Author: RT Jose Eduardo(R) Service: Nuclear Medicine Author Type: Technologist Type: Progress Notes Filed: 04/05/2022 2:03 PM Note Text: Radiology Service Progress Note PATIENT NAME: Simone Gunter DATE OF SERVICE: April 05, 2022 TIME: 1:55 PM PATIENT IDENTITY VERIFICATION COMPLETED USING TWO (2) IDENTIFIERS: Name and Date of confirmed by patient verbally. FALL SCREENING: Has the patient had 2 falls in the last year or 1 fall with injury or currently using an Ambulatory Assistive Device (Walker, Cane, Wheelchair, Crutches, etc.)? No PATIENT GENDER DATA: Male PATIENT RELEVANT IMPLANT DATA REVIEWED: Not Applicable RADIOLOGY DEPARTMENT: General X-ray: Exam(s) Completed: Chest X-Ray PERIPHERAL IV DATA: Not applicable SIGNED BY: RT Jose Eduardo(R) April 05, 2022 1:55 PM [facility] Influenza virus A and B RNA and SARS-CoV-2 (COVID-19) N gene panel BRYAN+probe (Resp) 04-05-2022 Note Date & Type Note Facility 04-05-2022 Influenza virus A and B RNA and SARS-CoV-2 (COVID-19) N gene panel BRYAN+probe (Resp) COVID 19 RESULT: SARS-CoV-2 (Agent of COVID-19) Detected by RT-PCR or equivalent method. anatoly [id number]_[employer] ([employer])_EUA This test was developed and its performance characteristics determined by [facility]'s [facility] [place]. This test has been authorized by FDA under an Emergency Use Authorization (EUA). This test has been validated in accordance with the FDA's Guidance Document Policy for Diagnostics Testing in Laboratories Certified to Perform High Complexity Testing under CLIA prior to Emergency use Authorization for Coronavirus Disease 2019 during the Public Health Emergency issued on October 18, 2019. Test performed by [facility], [facility] [place], [address], [place] [address]. INFLUENZA A PCR: Negative for Influenza A by RT-PCR INFLUENZA B PCR: Negative for Influenza B by RT-PCR [facility] Note 04-05-2022 Telephone Encounter - Jessie Rodriguez APRN.CNP - 04/05/2022 2:58 PM EDT Note Date & Type Note Facility 04-05-2022 Miscellaneous Notes Formattin g of this note might be different from the original. Radiology report faxed to patient's PCP Dr. Tonio Johnson at [phone]. Confirmation of fax received. Patient was advised to call Dr. Johnson today for a follow up appointment. Jessie Rodriguez APRN.CNP documented in this encounter [facility] Instructions 04-05-2022 Patient Instructions Note Date & Type Note Facility 04-05-2022 Instructions Jessie Rodriguez APRN.CNP - 04/05/2022 2:25 PM EDT ASSESSMENT/PLAN: 1. Burning with urination - ICD9: 788.1, ICD10: R30.0 (primary diagnosis) acute - UA positive for marcela esterase, hematuria, and proteinuria - Send urine for culture - Begin treatment with cephalexin for 10 days - Patient education for prevention given - UA DIP, URINE (POC) - URINE CULTURE - CEPHALEXIN 500 MG CAPSULE 2. Acute cough - ICD9: 786.2, ICD10: R05.1 - XR CHEST 2V FRONTAL/LAT RESULT: Lines, tubes, and devices: None. Lungs and pleura: There is a round approximately 4.5 cm mass in the region of the right upper lobe. No pleural effusion or pneumothorax. Cardiomediastinal silhouette: Stable cardiomediastinal silhouette with postsurgical changes from median sternotomy/CABG procedure. Bones and soft tissues: Degenerative changes are present within the thoracic spine. IMPRESSION: 4.5 cm right upper lobe round mass. Findings suspect for neoplasm until proven otherwise. Further evaluation with contrast-enhanced CT chest is advised. -Result will be faxed to Dr. Johnson today, please call his office today to schedule follow up appointment. 3. Suspected COVID-19 virus infection - ICD9: V01.79, ICD10: Z20.822 - COVID WITH FLUA+B, ROUTINE Jessie Rodriguez APRN.SHANI documented in this encounter [facility] History of Present illness Narrative 04-05-2022 Jessie Rodriguez APRN.[facility] - 04/05/2022 2:03 PM EDT Note Date & Type Note Facility 04-05-2022 History of Presen t illness Narrative Subjective HPI Simone Gunter is a 77 year old male who presents with a cough x 1 week. Also having burning with urination for one week. He has had a fever today. He denies any known sick contacts. He has taken coricidin for his cough. Review of Systems Constitutional: Positive for fever and malaise/fatigue. HENT: Positive for congestion. Respiratory: Positive for cough. Gastrointestinal: Negative for nausea and vomiting. Genitourinary: Positive for dysuria. Musculoskeletal: Negative for back pain. BP 122/76 Pulse 76 Temp (!) 38.7 C (101.6 F) Resp 16 Wt 87.1 kg (192 lb) SpO2 94% No past medical history on file. No past surgical history on file. ALLERGIES Ibuprofen MEDICATIONS aspirin, enteric coated (ASPIRIN, ENTERIC COATED) 81 mg EC tablet Take by mouth. glyBURIDE (DIABETA) 2.5 mg tablet Take 2.5 mg by mouth. clopidogrel (PLAVIX) 75 mg tablet colestipol (COLESTID) 1 gram tablet LANTUS SOLOSTAR U-100 INSULIN 100 unit/mL (3 mL) lisinopril 2.5 mg tablet pravastatin (PRAVACHOL) 20 mg tablet JANUVIA 50 mg tablet cholecalciferol, vitamin D3, (VITAMIN D-3) 10 mcg (400 unit) cap Take 400 Units by mouth once daily. fish oil/borage/flax/om3,6,9 1 (OMEGA 3-6-9 COMPLEX ORAL) Take by mouth. lutein 10 mg tab Take by mouth. MULTIVITAMIN ORAL Take by mouth. No family history on file. Social History Tobacco Use Smoking status: Former Types: Cigarettes Smokeless tobacco: Former Objective Physical Exam Vitals and nursing note reviewed. Constitutional: Appearance: Normal appearance. HENT: Mouth/Throat: Mouth: Mucous membranes are moist. Pharynx: Oropharynx is clear. No oropharyngeal exudate or posterior oropharyngeal erythema. Cardiovascular: Rate and Rhythm: Normal rate and regular rhythm. Heart sounds: Normal heart sounds. Pulmonary: Effort: Pulmonary effort is normal. No respiratory distress. Breath sounds: Normal breath sounds. No wheezing or rales. Skin: General: Skin is warm and dry. Findings: No erythema or rash. Neurological: Mental Status: He is alert. ASSESSMENT/PLAN: 1. Burning with urination - ICD9: 788.1, ICD10: R30.0 (primary diagnosis) acute - UA positive for marcela esterase, hematuria, and proteinuria - Send urine for culture - Begin treatment with cephalexin for 10 days - Patient education for prevention given - UA DIP, URINE (POC) - URINE CULTURE - CEPHALEXIN 500 MG CAPSULE 2. Acute cough - ICD9: 786.2, ICD10: R05.1 - XR CHEST 2V FRONTAL/LAT RESULT: Lines, tubes, and devices: None. Lungs and pleura: There is a round approximately 4.5 cm mass in the region of the right upper lobe. No pleural effusion or pneumothorax. Cardiomediastinal silhouette: Stable cardiomediastinal silhouette with postsurgical changes from median sternotomy/CABG procedure. Bones and soft tissues: Degenerative changes are present within the thoracic spine. IMPRESSION: 4.5 cm right upper lobe round mass. Findings suspect for neoplasm until proven otherwise. Further evaluation with contrast-enhanced CT chest is advised. -Result will be faxed to Dr. Johnson today, please call his office today to schedule follow up appointment. 3. Suspected COVID-19 virus infection - ICD9: V01.79, ICD10: Z20.822 - COVID WITH FLUA+B, ROUTINE Jessie Rodriguez APRN.[facility] documented in this encounter [facility] Evaluation note Note Date & Type Note Facility documented in this encounter [facility] Health Concerns Infection Onset Date Last Indicated Resolved Time COVID-19 Rule-Out 04/05/2022 04/05/2022 Infection Onset Date Last Indicated Resolved Time COVID-19 Rule-Out 04/05/2022 04/05/2022 04/06/2022 12:57 AM EDT COVID-19 Confirmed 04/05/2022 04/05/2022 Summary Purpose Family History No Family History Records Found Advance Directives No Advanced Directives Records Found Additional Source Comments Source Comments (unrecognize d section and content) In the event this informatio n is protected by the Federal Confidentiality of Alcohol and Drug Abuse Patient Records regulations: The Federal rules restrict any use of the information to criminally investigate or prosecute any alcohol or drug abuse patient.[facility] the event this information is protected by the Federal Confidentiality of Alcohol and Drug Abuse Patient Records regulations: The Federal rules restrict any use of the information to criminally investigate or prosecute any alcohol or drug abuse patient.[facility] the event this information is protected by the Federal Confidentiality of Alcohol and Drug Abuse Patient Records regulations: The Federal rules restrict any use of the information to criminally investigate or prosecute any alcohol or drug abuse patient.[facility] the event this information is protected by the Federal Confidentiality of Alcohol and Drug Abuse Patient Records regulations: The Federal rules restrict any use of the information to criminally investigate or prosecute any alcohol or drug abuse patient.[facility] Reason for Visit (unrecogniz ed section and content) Reason Comments Urinary Problem burning with urinati on x 1 week nasal congestion and drainage x 1 week Reason Comments Results COVID+ Reason Comments Patient Update Care Teams (unrecognized sec tion and content) Cashier Assistant Relationship Specialty Start Date End Date Tonio Johnson DO [address] [place], [place] [id number] PCP - General Family Practice 04/05/22 Cashier Assistant Relationship Specialty Start Date End Date Tonio Johnson DO [address] [place], [place] [id number] PCP - General Family Practice 04/05/22 Cashier Assistant Relationship Specialty Start Date End Date Tonio Johnson DO [address] [place], [place] [id number] PCP - General Family Medicine 04/05/22 (unrecognized sect ion and content) No Status Records Found INFORMATION SOURCE (unrecogn ized section and content) FOR RECORDS PERTAINING TO PATIENTS WHO ARE OR HAVE BEEN ENROLLED IN A CHEMICAL DEPENDENCY/SUBSTANCEABUSE PROGRAM, SOME INFORMATION MAY BE OMITTED. This clinical summary was aggregated from multiple sources. Caution should be exercised in using it in the provision of clinical care. This summary normalizes information from multiple sources, and as a consequence, information in this document may materially change the coding, format and clinical context of patient data. In addition, data may be omitted in some cases. CLINICAL DECISIONS SHOULD BE BASED ON THE PRIMARY CLINICAL RECORDS. [facility], [facility]. provides no warranty or guarantee of the accuracy or completeness of information in this document.
[2023-10-12 13:31] LABS: CREATININE FINGERSTICK 1.5 mg/dL (0.70-1.30)
== END | disposition home or self-care (01) ==
LOC: CT 12:54
PROVIDERS: PCP Family Medicine; Referring Provider Internal Medicine Medical Oncology; Visit Provider Internal Medicine Medical Oncology
DX: C34.11 Malignant neoplasm of upper lobe, right bronchus or lung (principal)
CPT/HCPCS: 71260; Q9967

== ENCOUNTER → 2023-12-24 | Outpatient (CLI) | payer MEDICARE, OTHER, SELFPAY | END | disposition home or self-care (01) | PROVIDERS: PCP Family Medicine; Visit Provider Podiatrist Foot & Ankle Surgery | DX: L97.519 Non-pressure chronic ulcer of other part of right foot with unspecified severity (principal) | CPT/HCPCS: 87070; 87077; 87186; 87205 ==

== ENCOUNTER → 2024-01-28 | Outpatient (CLI) | payer MEDICARE, OTHER, SELFPAY ==
--- NOTE | 2024-01-28 12:55 | CT_ITS ---
STUDY: CT CHEST WITHOUT CONTRAST REASON FOR EXAM: Male, 79 years old. LUNG CANCER. History of non-small cell lung cancer. Prior radiation. RADIATION DOSAGE (If Supplied By Facility): CTDIvol = ( 13.02 ) mGy, DLP = ( 824.35 ) mGycm TECHNIQUE: Transaxial imaging was performed without the administration of intravenous contrast material. Multiplanar coronal and sagittal images were reformatted. Individualized dose optimization techniques were used for this CT. COMPARISON: Comparison is made with prior study dated October 12, 2023. FINDINGS: CHEST Essentially stable 2 cm x 2.1 respectively mass in the anterior aspect of the right upper lobe with evidence of a volume loss and prominence of the right hilum. 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 Stable bullous changes at the left lung base. Sternal cerclage wires and vascular clips are present from a prior sternotomy and coronary artery bypass graft procedure (CABG). Coronary artery calcification. Calcification of the mitral valve annulus. Normal mediastinum. Normal hilar regions. Normal unenhanced pulmonary arteries. There is atherosclerotic calcification of the aortic arch with tortuosity and elongation of the aortic arch and descending thoracic aorta. There are multi-level degenerative changes of the thoracic spine. Stable mild enlargement of the left adrenal gland. . CT/CT Chest AND Abd W/O Contrast IMPRESSION: Stable examination. Electronically Signed: Kenyon Flores MD at 13:48 EDT ,
== END | disposition home or self-care (01) ==
LOC: CT 12:53
PROVIDERS: PCP Family Medicine; Referring Provider Internal Medicine Medical Oncology; Visit Provider Internal Medicine Medical Oncology
DX: C34.11 Malignant neoplasm of upper lobe, right bronchus or lung (principal)
CPT/HCPCS: 71250; 74150

== ENCOUNTER → 2024-03-27 | Outpatient (CLI) | payer MEDICARE, OTHER, SELFPAY | END | disposition home or self-care (01) | PROVIDERS: PCP Family Medicine; Referring Provider Podiatrist Foot & Ankle Surgery; Visit Provider Podiatrist Foot & Ankle Surgery | DX: L97.519 Non-pressure chronic ulcer of other part of right foot with unspecified severity (principal) | CPT/HCPCS: 87070; 87075; 87077; 87186; 87205 ==

== ENCOUNTER → 2024-04-28 | Outpatient (CLI) | payer MEDICARE, OTHER, SELFPAY ==
--- NOTE | 2024-04-28 13:25 | CT_ITS ---
STUDY: CT CHEST T ABDOMEN WITH CONTRAST REASON FOR EXAM: Male, 79 years old. MONITOR LUNG CA RADIATION DOSAGE (If Supplied By Facility): CTDIvol = ( 14.99 ) mGy, DLP = ( 1022.07 ) mGycm TECHNIQUE: Transaxial imaging was performed following intravenous administration of IV 100mL Isovue-300. Multiplanar coronal and sagittal images were reformatted. Individualized dose optimization techniques were used for this CT. COMPARISON: Comparison is made with prior study dated January 28, 2024. FINDINGS: CHEST Stable right pleural effusion. Essentially stable appearance of the mass in the anterior aspect of the right upper lobe. Volume loss in the right upper lobe with evidence of a post radiation fibrosis. There is evidence of scarring. Stable scarring in the left upper lobe. Sternal cerclage wires and vascular clips are present from a prior sternotomy and coronary artery bypass graft procedure (CABG). There are calcifications of the coronary arteries. Calcification of the mitral valve annulus. Normal mediastinum. Normal hilar regions. Normal unenhanced pulmonary arteries. There is atherosclerotic calcification of the aortic arch with tortuosity and elongation of the aortic arch and descending thoracic aorta. There are multi-level degenerative changes of the thoracic spine. ABDOMEN Normal liver. There are multiple gallstones. Normal spleen. Normal pancreas. Normal bilateral adrenal glands. Normal right kidney. Normal left kidney. Normal visualized stomach. Normal small intestine. There are scattered colonic diverticula consistent with diverticulosis. The appendix is visualized and appears normal. There is diffuse atherosclerotic calcification of the abdominal aorta, without a demonstrated aneurysm. The patient is status post aorto by iliac bypass surgery. Normal inferior vena cava. Normal retroperitoneum. Normal abdominal wall. There are degenerative changes of the visualized lumbar spine. CT/CT Chest AND Abd W/ Contrast IMPRESSION: Stable examination. Electronically Signed: Kenoyn Flores MD at 15:33 EDT ,
[2024-04-28 13:47] LABS: CREATININE FINGERSTICK 1.4 mg/dL (0.70-1.30)
== END | disposition home or self-care (01) ==
LOC: CT 13:03
PROVIDERS: PCP Family Medicine; Referring Provider Internal Medicine Medical Oncology; Visit Provider Internal Medicine Medical Oncology
DX: C34.11 Malignant neoplasm of upper lobe, right bronchus or lung (principal)
CPT/HCPCS: 71260; 74160; Q9967

== ENCOUNTER → 2024-06-17 | Outpatient (CLI) | payer MEDICARE, OTHER, SELFPAY ==
--- NOTE | 2024-06-17 13:31 | VDLE_ITS ---
Reason For Study: BLE Pain RIGHT LEFT CFV is compressible, spontaneous, competent CFV is compressible, spontaneous, competent, and demonstrates pulsatile venous flow. and demonstrates pulsatile venous flow. FV is compressible, spontaneous, competent FV is compressible, spontaneous, competent and demonstrates pulsatile venous flow. and demonstrates pulsatile venous flow. POP V is compressible, spontaneous, POP V is compressible, spontaneous, competent competent and demonstrates pulsatile venous and demonstrates pulsatile venous flow. flow. T/P Trunk is compressible. T/P Trunk is compressible. PTV is compressible. PTV is compressible. LT PerV is compressible. RT PerV is compressible. SFJ is competent and measures 0.58 cm. SFJ is competent and measures 0.54 cm. Pt has HX of CABG. Unable to visualize GSV GSV proximal thigh measures 0.28 x 0.32 cm. from prox thigh to dist calf. Vessel appears GSV at knee measures 0.25 x 0.31 cm. to have been harvested. GSV above knee is competent. GSV below knee is INCOMPETENT for greater Lt SSV from junction to dist calf is DILATED than 0.5 seconds. and NONCOMPRESSIBLE with intraluminal echoes Pt has HX of CABG. A portion of GSV in the noted. PT has HX of SSV and findings are Rt thigh was unable to be visualized. consistent chemical ablation procedure. GSV dist calf appears PARTIALLY COMPRESSIBLE with bright intraluminal echoes noted. Finding is consistent with CHRONIC SVT. SSV at junction is competent and measures 0.29 cm with pulsatile flow noted. Procedure This is a venous duplex using B-mode, color flow and spectral Doppler. Exam performed in department. The exam was diagnostic. VL/Venous Duplex US - Hi Extrem Interpretation Summary Deep veins of the lower extremities are bilaterally patent and compressible seg mentally. There is no evidence of deep vein thrombosis on either side. Valvular competence appears in tact within the proximal deep venous systems bilaterally. A portion of the right great saphenou s vein appears to be absent in the thigh. The remaining portion of the right great saphenous vein in the thigh is competent. The right great saphenous vein below the knee is incompetent and dem onstrates chronic changes such as partial compressibility and intraluminal echogenicity. The left great saphenous vein appears to be absent. Sapheno-femoral junctions are competent bilaterally. The right small saphenous vein is patent and competent. The left small saphenous vein is non-compressible and demonstrates intraluminal echogenicity which may be consistent with a prior endovenous ablat ion procedure. Clinical correlation is advised. Pulsatile flow is noted in the deep venous system bilaterally, which may be ind icative of elevated central venous pressure (i.e. congestive heart failure, pulmonary hypertension, etc.). Clinical correlation is advised. Ordering Physician: Joaquim Suárez Referring Physician: Luis Johnson Performed By: Spike Dick RVT
--- NOTE | 2024-06-17 13:31 | ART_ITS ---
Reason For Study: PVD Procedure A bilateral lower extremity continuous wave Doppler with analog waveform analysis,segmental pressures,and ankle brachial indexes without exercise. Left Segmental Pressures Left brachial= 142mmHg. Left posterior tibial artery = 173mmHg. Left dorsalis pedis artery = 137mmHg. Left digit = 82 mmHg. The left posterior tibial artery waveforms are triphasic. The left dorsalis pedis waveforms are triphasic. Right Segmental Pressures Right brachial= 147mmHg. Right posterior tibial artery = 157mmHg. Right dorsalis pedis artery = 147mmHg. Right digit = 105 mmHg. The right posterior tibial artery waveforms are triphasic. The right dorsalis pedis waveforms are triphasic. Indices The right ankle brachial index by the posterior tibial artery is 1.07. The right ankle brachial index by the dorsalis pedis is 1.00. The right digital-brachial index is 0.71. The left ankle brachial index by the posterior tibial artery is 1.18. The left ankle brachial index by the dorsalis pedis is 0.93. The left digital-brachial index is 0.56. VL/Lower Ext Art Exam w/o Exercis Interpretation Summary Triphasic Doppler waveforms are noted at ankle level bilaterally. Pulse-volume recordings appear diminished at digital level on the left, but satisfactory at all other levels b ilaterally. Resting ankle-brachial indices are normal bilaterally. The right digital-brachial index is normal. The left digital-brachial index is mildly diminished. Arterial flow appears normal at ankle level bilaterally, and at digital level o n the right. There is evidence of mild arterial occlusive disease at digital level on the left. Ordering Physician: Joaquim Suárez Referring Physician: Luis Johnson Performed By: Spike Dick RVT
== END | disposition home or self-care (01) ==
PROVIDERS: PCP Family Medicine; Referring Provider Podiatrist Foot & Ankle Surgery; Visit Provider Podiatrist Foot & Ankle Surgery
DX: I73.89 Other specified peripheral vascular diseases (principal); M79.604 Pain in right leg; M79.605 Pain in left leg
CPT/HCPCS: 93923; 93970

== ENCOUNTER → 2024-07-03 | Outpatient (CLI) | payer MEDICARE, OTHER, SELFPAY | END | disposition home or self-care (01) | PROVIDERS: PCP Family Medicine; Referring Provider Podiatrist Foot & Ankle Surgery; Visit Provider Podiatrist Foot & Ankle Surgery | DX: S91.301A Unspecified open wound, right foot, initial encounter (principal) | CPT/HCPCS: 87070; 87075; 87077; 87101; 87186; 87205 ==

== ENCOUNTER → 2024-09-25 | Outpatient (CLI) | payer MEDICARE, OTHER, SELFPAY ==
--- NOTE | 2024-09-25 13:35 | RAD_ITS ---
EXAM: XR Chest, 2 Views CLINICAL INDICATION: TECHNIQUE: Frontal and lateral views of the chest. COMPARISON: No relevant prior studies available. FINDINGS: LUNGS AND PLEURAL SPACES: Right pleural effusion. HEART: Cardiomegaly with pulmonary congestion and edema. Superimposed pneumonia cannot be excluded. MEDIASTINUM: Unremarkable. Normal mediastinal contour. BONES/JOINTS: Unremarkable. No acute fracture. RAD/Chest PA and Lateral IMPRESSION: 1. Cardiomegaly with pulmonary congestion and edema. Superimposed pneumonia ca nnot be excluded. 2. Right pleural effusion. Reading [facility]
[2024-09-25 15:07] LABS: Absolute Lymphocyte Count 0.91 X10^3/uL (0.83-4.51); Absolute Neutrophil Count 6.7 X10^3/uL (2.0-7.7); Basophil# 0.05 X10^3/uL; Basophil% 0.6 % (0-1); Eosinophils% 1.1 % (0-5); Hemoglobin 11.1 g/dL (13.0-16.5); Lymphocyte # 0.91 X10^3/ul (0.83-4.51); Lymphocyte % 10.4 % (19-41); Mean Corp Hgb Conc 30.8 g/dL (32-36); Mean Corpuscular Hgb 27.7 pg (27.0-32.0); Mean Corpuscular Volume 89.8 fL (80-94); Mean Platelet Vol. 10.5 fl (6.2-12.0); Monocyte% 10.3 % (0-10); NRBC Flagged by Analyzer 0 % (0-5); Neutrophil # 6.72 X10^3/uL (2.7-7.7); Neutrophil % 76.9 % (47-70); Platelet Count 256 K/mm3 (150-450); RBC Distribution Width CV 16.2 % (11.6-14.6); RBC Distribution Width SD 52.7 fl (35.1-43.9); Red Blood Count 4.01 M/mm3 (4.6-6.2); White Blood Count 8.7 K/mm3 (4.4-11.0)
[2024-09-25 15:29] LABS: Anion Gap 5 (5-15); BUN 34 mg/dL (7-18); BUN/Creat Ratio 15.4 RATIO (10-20); Calcium,Total 9.1 mg/dL (8.5-10.1); Chloride 105 mmol/L (98-107); Creatinine, Serum 2.21 mg/dL (0.70-1.30); EST Glomerular Filtration Rate 31 mL/min (>60); Est Glom Filt Rate - Afr Amer 37 mL/min (>60); Glucose 127 mg/dL (74-106); Potassium 4.3 mmol/L (3.5-5.1); Sodium Level 138 mmol/L (136-145)
[2024-09-25 15:32] LABS: BNP,B-Type NATRIURETIC PEPTIDE 183.7 pg/mL (0-100)
== END | disposition home or self-care (01) ==
LOC: RAD 13:33
PROVIDERS: PCP Family Medicine; Referring Provider Physician Assistant Medical; Visit Provider Physician Assistant Medical
DX: R06.09 Other forms of dyspnea (principal)
CPT/HCPCS: 36415; 71046; 80048; 83880; 85025

== ENCOUNTER → 2024-10-16 | Outpatient (CLI) | payer MEDICARE, OTHER, SELFPAY ==
[2024-10-16 13:24] VITALS: PULSE 100; PULSE 101; PULSE 102; PULSE 103; PULSE 107; PULSE 96; PULSE 98; O2SAT 83; O2SAT 85; O2SAT 86; O2SAT 88; O2SAT 90; O2SAT 92; O2SAT 94; O2SAT 96
--- NOTE | 2024-10-16 13:28 | CPS ---
PATIENT PUSHED W/C FOR STABILITY DURING 6MWT. PATIENT WAS VERY HESITANT TO ADD OXYGEN THROUGHOUT TESTING FOR SPO2'S BELOW 88% BECAUSE EACH SHORT REST BREAK HIS SPO2 WOULD INCREASE TO BETWEEN 89-92%. HE SAID HE DOES NOT WALK NEARLY THIS MUCH AT HOME AND DOES NOT REALLY WANT TO WEAR OXYGEN. AT 5 MIN, SPO2 WAS 83%, SO O2 WAS PLACED AT 2LPM WITH PATIENT APPROVAL, HE WORE FOR REMAINDER OF TESTING. HE AMBULATED A TOTAL OF 329FT.
--- NOTE | 2024-10-17 10:04 | PCM.PSN.6M ---
PSN 6 Minute Walk Test 6 Minute Walk Test 6 Minute Walk Test: 6 Minute Walk Test PSN:6-Minute Walk Test Start: 10/16/24 13:24 Freq: Status: Active Protocol: RESP.6MINW Document 10/16/24 13:24 [facility] (Rec: 10/16/24 13:34 [facility] [id number]) 6 Minute Walk Test Date Performed 10/16/24 Time Performed 12:30 Height 5 ft 6 in Weight: 174 lb Weight in Pounds 174.[address]: Lorie Mart [employer] Assistive device Walker used: Pre-test Oxygen Delivery Room Air Method Pulse Ox (%) 96 Pulse Rate (60-100 98 beats/min) Dyspnea Galilea Scale ( 0 0-10) 1st minute Oxygen Delivery Room Air Method Pulse Ox (%) 90 Pulse Rate (60-100 101 H beats/min) Dyspnea Galilea Scale ( 2 0-10) Number of Rests 1 Taken Reported Symptoms Increased Work of Breathing 2nd minute Oxygen Delivery Room Air Method Pulse Ox (%) 88 Pulse Rate (60-100 100 beats/min) Dyspnea Galilea Scale ( 3 0-10) Number of Rests 1 Taken Reported Symptoms Increased Work of Breathing 3rd minute Oxygen Delivery Room Air Method Pulse Ox (%) 86 Pulse Rate (60-100 107 H beats/min) Dyspnea Galilea Scale ( 4 0-10) Number of Rests 1 Taken Reported Symptoms Increased Work of Breathing 4th minute Oxygen Delivery Room Air Method Pulse Ox (%) 85 Pulse Rate (60-100 102 H beats/min) Dyspnea Galilea Scale ( 4 0-10) Number of Rests 0 Taken Reported Symptoms Increased Work of Breathing 5th minute Oxygen Delivery Room Air Method Pulse Ox (%) 83 Pulse Rate (60-100 103 H beats/min) Dyspnea Galilea Scale ( 4 0-10) Number of Rests 1 Taken Reported Symptoms Cyanotic,Increased Work of Breathing 6th minute Oxygen Flow Rate (L/ 2 min) (L/min) Oxygen Delivery Nasal Cannula Method Pulse Ox (%) 92 Pulse Rate (60-100 98 beats/min) Dyspnea Galilea Scale ( 4 0-10) Number of Rests 1 Taken Reported Symptoms Increased Work of Breathing Post-test Oxygen Delivery Room Air Method Pulse Ox (%) 94 Pulse Rate (60-100 96 beats/min) Dyspnea Galilea Scale ( 1 0-10) Full Laps Walked 5 Partial Lap, Number 34 of Tiles Walked Total Distance 329 Walked (ft) 10/16/24 13:28 Cardiopulmonary Services by Fabiola Elizabeth PATIENT PUSHED W/C FOR STABILITY DURING 6MWT. PATIENT WAS VERY HESITANT TO ADD OXYGEN THROUGHOUT TESTING FOR SPO2'S BELOW 88% BECAUSE EACH SHORT REST BREAK HIS SPO2 WOULD INCREASE TO BETWEEN 89-92%. HE SAID HE DOES NOT WALK NEARLY THIS MUCH AT HOME AND DOES NOT REALLY WANT TO WEAR OXYGEN. AT 5 MIN, SPO2 WAS 83%, SO O2 WAS PLACED AT 2LPM WITH PATIENT APPROVAL, HE WORE FOR REMAINDER OF TESTING. HE AMBULATED A TOTAL OF 329FT. Initialized on 10/16/24 13:28 - END OF NOTE Interpretation Interpretation: The patient ambulated 329 feet over the course of 6 minutes beginning on room air with the use of a walker. Pretesting oxygen saturation was noted to be 96% on room air. With ambulation, the patient desaturated on several occasions requiring the initiation of supplemental oxygen at 2 L/min to maintain appropriate saturations. Recommendations Recommendations: 2 L/min of supplemental oxygen should be utilized with exertion.
== END | disposition home or self-care (01) ==
LOC: PSN 12:29
PROVIDERS: PCP Family Medicine; Referring Provider Nurse Practitioner Acute Care; Visit Provider Nurse Practitioner Acute Care
DX: J43.2 Centrilobular emphysema (principal)
CPT/HCPCS: 94618

== ENCOUNTER → 2024-10-20 | Outpatient (CLI) | payer MEDICARE, OTHER, SELFPAY ==
[2024-10-21 01:37] LABS: Hemoglobin A1c 6.6 % (<=5.6)
== END | disposition home or self-care (01) ==
LOC: BFHLAB 14:14
PROVIDERS: PCP Family Medicine; Referring Provider Family Medicine; Visit Provider Family Medicine
DX: E11.49 Type 2 diabetes mellitus with other diabetic neurological complication (principal)
CPT/HCPCS: 36415; 83036

== ENCOUNTER → 2024-10-30 | Outpatient (CLI) | payer MEDICARE, OTHER, SELFPAY ==
--- NOTE | 2024-10-30 12:37 | CT_ITS ---
PROCEDURE: CT CHEST AND ABD W/ CONTRAST REASON FOR EXAM: MONITOR -HX OF LUNG CA Prior radiation therapy. TECHNIQUE: Chest and abdomen CT with intravenous contrast. No oral contrast. CONTRAST: 98 mL of Isovue-300. COMPARISON: Comparison is made with prior study dated April 28, 2024. FINDINGS: CT CHEST: Hardware: None. Lymph nodes: No mediastinal, hilar, or axillary lymphadenopathy. Heart and Vasculature: Prior CABG. Calcification of the mitral valve annulus. Calcification of the coronary arteries. Atherosclerotic calcification of the aortic arch and descending thoracic aorta. Lungs and Airways: Since prior study, there has been progressive increase in the right pleural effusion with underlying compressive atelectasis at the right lung base. 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 The previously seen spiculated nodule in the right upper lobe has decreased in size although there has been an increase in the airspace disease. There is volume loss in the right hemithorax with shift of the heart and mediastinal structures to the right side. There is evidence of scarring in the left hemithorax with the blebs in the posterolateral aspect of the left lower lobe. Degenerative changes of the thoracic vertebrae. CT ABDOMEN: Liver: Unremarkable. Gallbladder: Multiple small gallstones are seen. Spleen: Unremarkable. Pancreas: Unremarkable. Adrenals: Unremarkable. Kidneys: Unremarkable. Bowel: Visualized loops of bowel in the upper abdomen are unremarkable. Lymph nodes: No suspicious lymph node enlargement at the upper abdomen. Vasculature: The patient is status post aorto bi-iliac grafting. There is dense calcification of the [place] iliac arteries bilaterally. Peritoneum / Retroperitoneum: No ascites or free air at the upper abdomen.. Small umbilical hernia containing fat. Bones: Degenerative changes of the spine. CT/CT Chest AND Abd W/ Contrast IMPRESSION: Increase in size of the right pleural effusion with volume loss in the right he mithorax with shift of the heart and mediastinal structures towards the right side of the midline. The previously seen spiculat ed mass in the right upper lobe has decreased in size although there is increased airspace disease in the right upper lobe most likely representing post radiation fibrosis/pneumonitis. One or more dose reduction techniques were used (e.g., Automated exposure contr ol, adjustment of the mA and/or kV according to patient size, use of iterative reconstruction technique). Reading Location: [facility]
[2024-10-30 13:07] LABS: CREATININE FINGERSTICK 1.5 mg/dL (0.70-1.30)
== END | disposition home or self-care (01) ==
LOC: CT 12:36
PROVIDERS: PCP Family Medicine; Referring Provider Internal Medicine Medical Oncology; Visit Provider Internal Medicine Medical Oncology
DX: C34.11 Malignant neoplasm of upper lobe, right bronchus or lung (principal)
CPT/HCPCS: 71260; 74160; Q9967

== ENCOUNTER 2025-03-04 14:54 | Inpatient (IN) | payer MEDICARE, OTHER, SELFPAY ==
[2025-03-04] VITALS (12 sets, daily range): BP systolic 93–174; BP diastolic 59–85; PULSE 66–117; RESP 16–28; TEMP 36.5–37; O2SAT 89–100; BMI 25.9; BMI 25.7
--- NOTE | 2025-03-04 14:59 | RAD_ITS ---
PROCEDURE: CHEST PA AND LATERAL 03/04/2025 REASON FOR EXAM: CHEST PAIN Shortness of breath. TECHNIQUE: CHEST PA AND LATERAL COMPARISON: Prior study dated September 25, 2024. FINDINGS: Hardware: EKG electrodes are seen Heart: Cardiomegaly. Prior midline sternotomy. Mediastinum: The mediastinal contour is unremarkable. Lungs: CHF. Small right pleural effusion with bibasilar atelectasis. Bones: Degenerative changes are identified within the thoracic spine. RAD/Chest PA and Lateral IMPRESSION: Cardiomegaly and CHF with small right pleural effusion and bibasilar atelectasi s worse at the right lung base. Reading Location: [facility]
--- NOTE | 2025-03-04 15:08 | ED.VIS.DYS ---
HPI History of Present Illness Chief Complaint: Shortness of Breath Informant: patient Onset/Context/Timing Onset: Days Context: gradual Timing: Intermittent Quality: Negative for Dyspnea on exertion or Wheezing Current Severity: Gone Maximum Severity: Mild Worsened by: Nothing Relieved by: Oxygen Associated Symptoms cough Chest Pain: Positive for None Narrative Narrative: 80-year-old male history of A-fib on Eliquis, CKD, anemia, diabetes, COPD. He is on 4 L at home. Also is a history of lung cancer. States he was short of breath today when he was changing his oxygen tank. Now he denies being short of breath. Denies any change in his cough but he is a chronic cough. Denies any fever. No chest pain. No hemoptysis. No leg swelling. PE Risk Factors: Positive for Cancer; Negative for OCP + Smoking + > 35, Prior DVT or PE, Recent immobilization, Recent surgery or Recent travel Prior similar symptoms: Yes Recent Illness/Hospitalization: No PFSH PFSH Medical History Other persistent atrial fibrillation New onset atrial flutter COVID Wears hearing aid in both ears Former smoker Coronary artery disease Peripheral vascular occlusive disease BPH (benign prostatic hyperplasia) Chronic kidney disease, stage 3 Atherosclerosis of coronary artery of [place] heart without angina pectoris Hyperlipidemia Lower extremity edema Venous insufficiency Malnutrition Delayed wound healing Osteomyelitis of ankle, left, acute Ulcer of left lower extremity with fat layer exposed Type 2 diabetes mellitus with diabetic polyneuropathy Anemia GERD (gastroesophageal reflux disease) Hypertension Home Medications ?Medication ?Instructions ?Recorded ?Last Taken ?Type insulin glargine 100 unit/mL 40 unit SQ DAILY 11/19/19 06/07/23 History subcutaneous solution multivitamin (Daily Multi-Vitamin 1 tab PO DAILY 06/28/20 06/07/23 History tablet) sitagliptin phosphate 50 mg tablet 50 mg PO DAILY 11/02/21 06/07/23 History (Januvia) pravastatin 20 mg tablet 20 mg PO DAILY 01/17/22 06/07/23 History cranberry 500 mg capsule 500 mg PO DAILY 07/25/23 Unknown History docusate sodium 100 mg capsule 100 mg PO DAILY PRN 07/25/23 Unknown History (Colace) metoprolol tartrate 25 mg tablet 12.5 mg (1/2 x 25 mg) PO BID #45 10/30/24 Unknown Rx TABLETS apixaban 5 mg tablet (Eliquis) 5 mg PO BID #180 TABLETS 08/04/24 Unknown Rx albuterol sulfate 90 mcg/actuation 2 puff inhalation Q4H PRN 10/23/24 Unknown Rx aerosol inhaler shortness of breath or wheezing #3 device guaifenesin 1,200 mg tablet, 1,200 mg PO Q12H #180 tabs 10/23/24 Unknown Rx extended release 12 hr umeclidinium 62.5 mcg-vilanterol 1 inh inhalation QDAY #60 ea 10/23/24 Unknown Rx 25 mcg/actuation powdr for inhalation (Anoro Ellipta) clopidogrel 75 mg tablet (Plavix) 75 mg PO DAILY #90 tabs 11/11/24 Unknown Rx lisinopril 2.5 mg tablet 2.5 mg PO DAILY #90 TABLETS 02/02/25 Unknown Rx Allergy/AdvReac Type Severity Reaction Status Date / Time ibuprofen Allergy Severe Facial Verified 11/06/24 14:44 swelling (angioedema) Family History Brother Diabetes Father , Age 72 stomach ulcers No problems noted. Mother , Age 71 pancreatitis No problems noted. Sister , hepatitis C No problems noted. Surgical History H/O aorto-femoral bypass (~2009) History of transurethral resection of prostate Presence of aortocoronary bypass graft (~03/2013) Social History Smoking Status: Former smoker Tobacco: How many years used: 30 how long ago did patient quit smokin years ROS ROS ED ROS Narrative Denies recent illness. Denies chest pain. Denies fever. No change in the cough. No hemoptysis. Constitutional Constitutional ED: Denies chills or fever(s) ENT ENT ED: Denies ear pain Cardiovascular Cardiovascular: Denies chest pain Respiratory/Chest Respiratory/Chest: Reports cough and dyspnea Gastrointestinal Gastrointestinal: Denies abdominal pain Genitourinary Genitourinary ED: Denies dysuria or hematuria Musculoskeletal Musculoskeletal: Denies arthralgias Neurologic Neurologic: Denies headache(s) Psychiatric Psychiatric: Denies anxiety Endocrine Endocrinology: Denies cold intolerance Hematologic/Lymphatic Hematologic/Lymphatic: Denies easy bleeding, easy bruising or lymphadenopathy Allergic/Immunologic Allergic/Immunologic ED: Denies mouth swelling, tongue swelling or urticaria EXAM Physical Exam Narrative Exam Narrative: 80-year-old male no acute distress vital signs stable afebrile on his normal 4 L he is under percent. At 70 wears at home. H EENT exam pupils are react to light. Moist membranes. Neck nontender. No JVD. No lymphadenopathy. Lungs clear to auscultation bilaterally. No rales, rhonchi or wheezing. Equal symmetric. Heart A- flutter rate about 108 no murmur. Chest wall ribs nontender. Abdomen soft nontender. No peritoneal signs. Back nontender. Moving all 4 extremities. 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 Calves nontender without edema or cords. Normal dorsi plantarflexion. Neurologically is awake alert. Answer questions following commands. Const Vital Signs: 03/04/25 14:58 03/04/25 15:01 03/04/25 15:05 Temperature 97.7 F L 97.7 F L Temperature Source Oral Oral Pulse Rate 108 H 108 H Respiratory Rate 16 28 H Respiratory Effort Respiratory Depth Respiratory Pattern Blood Pressure 138/69 H 138/69 H Blood Pressure Mean 92 92 Pulse Ox 100 100 Oxygen Delivery Method Non-Rebreather Nasal Cannula Oxygen Flow Rate (L/min) 4 03/04/25 16:05 03/04/25 16:16 03/04/25 17:00 Temperature 97.8 F 97.8 F Temperature Source Oral Oral Pulse Rate 66 112 H Respiratory Rate 24 H 25 H Respiratory Effort Non-Labored Respiratory Depth Normal Respiratory Pattern Tachypnea Blood Pressure 93/59 L 134/85 H Blood Pressure Mean 70 101 Pulse Ox 97 96 Oxygen Delivery Method Room Air Oxygen Flow Rate (L/min) 03/04/25 18:00 03/04/25 19:00 Temperature 97.9 F 97.9 F Temperature Source Oral Oral Pulse Rate 114 H 117 H Respiratory Rate 18 23 H Respiratory Effort Respiratory Depth Respiratory Pattern Blood Pressure 154/79 H 119/78 Blood Pressure Mean 104 91 Pulse Ox 96 89 Oxygen Delivery Method Room Air Nasal Cannula Oxygen Flow Rate (L/min) 4 Positive well nourished and well developed; Negative for cachectic, contractures or unkempt General Appearance ED: well developed and NAD; Negative for unkempt, cachectic, contractures or pallor Nutritional Appearance: Negative for cachectic HEENT Reports moist mucous membranes atraumatic Eyes PERRL and EOMs intact bilaterally Neck no lymphadenopathy, supple, no meningeal signs and no JVD Resp normal respiratory effort and clear to auscultation bilaterally Cardio Negative for regular rate Cardio Narrative: Atrial flutter rate about 108. GI non-tender, non-distended and no masses Auscultation: normoactive bowel sounds Palpation: soft; Negative for tender, guarding or rebound tenderness present Back/Spine no CVA tenderness and normal to inspection Extremity normal to inspection General Extremety ED: Negative for edema or tenderness General Extremity: Negative for edema Neuro oriented x3 and CN's II-XII intact bilaterally Sensorium / Orientation: alert, oriented to person, oriented to place and oriented to time Speech: speech normal Motor Exam: strength 5/5 throughout Psych mental status grossly normal Appearance: Negative for unkempt Attitude: No agitated Mood & Affect: Negative for depressed Thought Process: normal thought process Skin no wounds and skin turgor normal General Skin Exam: Negative for jaundice or pallor Lesions: no lesions Rashes: no rashes Trauma: Negative for abrasion or laceration MDM MDM MDM Narrative Medical decision making narrative: 80-year-old male short of breath but currently he is symptom-free on his normal 4 L of oxygen. At home he was hypoxic but he was not on oxygen. Now he has no complaints. Lungs are clear. Will get a cardiac psych respiratory workup. He is currently not wheezing so not an given aerosols or steroids currently. Chest x-ray, EKG and labs are pending. Differential would include COPD, pneumonia, CHF, pulmonary effusions, fib flutter, etc. Repeat exam at 7:10 PM. Patient is resting comfortably. We discussed all his test results. Nurses walked him on his 4 L he started do well his sat was in the low 90s on 4 L then he got more short of breath, his respiratory rate increased his pulse ox dropped down to 84% and he seemed labored. He is doing better currently. I think in light of that his right pleural effusion, the CHF he probably needs to come in and be diuresed. He is comfortable with the plan. The hospitalist is on page. Patient's back in atrial flutter at 117 and I discussed with the hospitalist he preferred a single dose of digoxin. If that does not work he may start a Cardizem drip. History & Record Review Discussion w/independent historian: Patient Additional record(s) reviewed:: Prior inpatient record, Prior outpatient record, Prior ED visit and Prior labs Lab Data Attestation: I reviewed the patient's lab results. Lab results narrative: CBC shows a white count 7.6 H&H of 10.1 and 33.4 which is his baseline anemia. Platelets 189. Chemistry shows sodium 138. Potassium 5.2. Gap 8. BUN/creatinine of 37 1.86. Glucose 124. Initial troponin 44. 2-hour troponin 45. BNP is elevated at 3, 316. Chest x-ray chronic changes with pulmonary edema and a right pleural effusion. Labs: Laboratory Results - last 24 hr 03/04/25 03/04/25 15:10 17:20 WBC 7.6 RBC 3.74 L Hgb 10.1 L Hct 33.4 L MCV 89.3 MCH 27.0 MCHC 30.2 L RDW Std Deviation 54.2 H RDW Coeff of Reggie 16.5 H Plt Count 189 MPV 10.2 Immature Gran % (Auto) 0.700 Neut % (Auto) 78.1 H Lymph % (Auto) 10.1 L [place] % (Auto) 9.1 Eos % (Auto) 1.6 Baso % (Auto) 0.4 Absolute Neuts (auto) 6.0 Absolute Lymphs (auto) 0.77 L Nucleated RBC % 0 Sodium 138 Potassium 5.2 H Chloride 102 Carbon Dioxide 28.6 Anion Gap 8 BUN 37 H Creatinine 1.86 H Estim Creat Clear Calc 28.58 L Est GFR (MDRD) Non-Af 36 L BUN/Creatinine Ratio 19.7 Glucose 124 H Calcium 9.3 Troponin T High Sens 44 H Troponin T Hi Sens 2 Hr 45 H NT pro BNP II 3316 H Radiography Chest X-Ray - ED: 2 View, Read by ED Physician, Read by Radiologist, Chronic Changes, Cardiomegaly, CHF and Right Effusion Diagnostic Testing: Clinical Impression(s) from Imaging Studies Chest X-Ray 03/04/25 14:59 IMPRESSION: Cardiomegaly and CHF with small right pleural effusion and bibasilar atelectasis worse at the right lung base. [facility], 2 views, AP and lateral, interpreted by myself and the radiologist shows cardiomegaly, prior sternotomy, right pleural effusion and pulmonary edema. No pneumonia. Rhythm Strip Rhythm Strip: Atrial flutter Rate: 108 Ectopy: None EKG Initial EKG: Attestation: I personally reviewed and interpreted this EKG as follows: Interpretation: No Acute Injury Pattern and Atrial Flutter Comments: Atrial flutter rate of 108. 2-1 conduction. Incomplete right bundle branch block. Discharge Plan Dx/Rx/DC Orders Clinical Impression: Acute dyspnea, Hypoxia, Atrial flutter, CHF (congestive heart failure), Pleural effusion on right, History of diabetes mellitus, History of COPD, Chronic kidney disease, Chronic anticoagulation Disposition Disposition: Acute Care [facility]
[2025-03-04 15:31] LABS: Hematocrit 33.4 % (40-54); Hemoglobin 10.1 g/dL (13.0-16.5); Immature Granulocytes Count 0.050 X10^3/uL (0.0-0.0); Mean Corp Hgb Conc 30.2 g/dL (32-36); Mean Corpuscular Volume 89.3 fL (80-94); Mean Platelet Vol. 10.2 fl (6.2-12.0); NRBC Flagged by Analyzer 0 % (0-5); Platelet Count 189 K/mm3 (150-450); RBC Distribution Width CV 16.5 % (11.6-14.6); RBC Distribution Width SD 54.2 fl (35.1-43.9); Red Blood Count 3.74 M/mm3 (4.6-6.2); White Blood Count 7.6 K/mm3 (4.4-11.0)
[2025-03-04 16:14] LABS: Anion Gap 8 (5-15); BUN 37 mg/dL (4-19); BUN/Creat Ratio 19.7 RATIO (10-20); Calcium,Total 9.3 mg/dL (7.6-11.0); Carbon Dioxide 28.6 mmol/L (21.0-32.0); Chloride 102 mmol/L (98-108); Estimated Creatinine Clearance 28.58 ml/min (50-250); Glucose 124 mg/dL (70-99); Potassium 5.2 mmol/L (3.3-5.1); Pro- Brain NATRIURETIC PEPTIDE 3316 pg/mL (<=1800); Troponin T High Sensitivity 44 ng/L (<=22)
[2025-03-04 18:00] LABS: Troponin T High Sens 2 HR 45 ng/L (<=22)
--- NOTE | 2025-03-04 19:22 | HP.PCM.HOS_ITS ---
[facility] General Date of Admission: 03/04/25 Date of Service: 03/04/25 Chief Complaint: SOB. [facility] Narrative PEDRO HILLMAN, is a 80 M with a past medical history of essential hypertension; on lisinopril and metoprolol BID, hyperlipidemia; on pravastatin, overweight; with BMI of 26 this admission, former tobacco abuse x ~30 years (quit ~10 years ago); with subsequent COPD plus lung cancer and chronic cough, chronic hypoxic respiratory failure; on 4L NC continuously, CAD; s/p CABG x 3 (2012), chronic atrial fibrillation; on apixaban, DM-2; of unknown control on insulin glargine 40U sq daily plus sitagliptin, diabetic neuropathy, PVD; with history of LLE ulcer s/p aortofemoral bypass (~2009) on clopidogrel, history of osteomyelitis of the Left ankle, chronic venous insufficiency, CKD; stage IIIb, chronic anemia, BPH; s/p TURP, history of COVID-19 and OA who presents to [facility] ER complaining of SOB. Mr. Hillman reports his symptoms began ~3-4 days prior to admission with the gradual-onset of [place] that progressed to SOB at rest when he was trying to change his oxygen tank earlier today. He states his chronic cough is unchanged from previous and he denies lower extremity edema, chest pain, wheezing, fever or chills. He states his symptoms are similar to his previous AE CHF. His last echocardiogram was done here on August 22, 2023 which revealed LVEF ~53% with moderate mitral annular calcification and [id number] (~1-2+) mitral valve insufficiency with a pulmonary artery systolic pressure of 28 mmHg in addition to mild (1+) pulmonic valve insufficiency. In the ER he was noted to have an elevated NT pro-BNP II of 3,316 pg/mL with a corresponding CXR that revealed cardiomegaly and CHF with small right pleural effusion and bibasilar atelectasis worse at the Right lung base in addition to laboratory evidence of elevated troponin T of 44 ng/L suspected to be due to Acute Cardiac Strain plus EKG evidence of Atrial Flutter; with Rapid Ventricular Response of ~117 bpm even after being treated with IV Cardizem bolus and Hyperkalemia of 5.2 mmol/L present on admission with a UA positive for Acute Cystitis; with microscopic hematuria. He was then admitted to the PCU for ongoing care for stay that is expected to extend beyond 2 midnights. [facility] Medical History Other persistent atrial fibrillation New onset atrial flutter DIMA Wears hearing aid in both ears Former smoker Coronary artery disease Peripheral vascular occlusive disease BPH (benign prostatic hyperplasia) Chronic kidney disease, stage 3 Atherosclerosis of coronary artery of menominee heart without angina pectoris Hyperlipidemia Lower extremity edema Venous insufficiency Malnutrition Delayed wound healing Osteomyelitis of ankle, left, acute Ulcer of left lower extremity with fat layer exposed Type 2 diabetes mellitus with diabetic polyneuropathy Anemia GERD (gastroesophageal reflux disease) Hypertension Home Medications ?Medication ?Instructions ?Recorded ?Last Taken ?Type insulin glargine 100 unit/mL 30 unit SQ DAILY diabetes 11/19/19 03/03/25 History subcutaneous solution multivitamin (Daily Multi-Vitamin 1 tab PO DAILY suppl ement 06/28/20 03/03/25 History tablet) sitagliptin phosphate 50 mg tablet 50 mg PO DAILY diab etes 11/02/21 03/03/25 History (Januvia) pravastatin 20 mg tablet 20 mg PO DAILY hyperlipidemi a 01/17/22 03/03/25 History cranberry 500 mg capsule 500 mg PO DAILY supplement 1 09/25/22 03/03/25 History docusate sodium 100 mg capsule 100 mg PO DAILY PRN sto ol softn 07/25/23 Unknown History (Colace) metoprolol tartrate 25 mg tablet 12.5 mg (1/2 x 25 mg) PO BID 06/18/24 03/03/25 Rx hypertension #45 TABLETS apixaban 5 mg tablet (Eliquis) 5 mg PO BID atrial fibr illation 08/04/24 03/03/25 Rx #180 TABLETS albuterol sulfate 90 mcg/actuation 2 puff inhalation Q 4H PRN 10/23/24 Unknown Rx aerosol inhaler shortness of breath or wheez ing #3 device guaifenesin 1,200 mg tablet, 1,200 mg PO Q12H #180 tab s 10/23/24 Unknown Rx extended release 12 hr umeclidinium 62.5 mcg-vilanterol 1 inh inhalation QDAY copd #60 ea 10/23/24 03/03/25 Rx 25 mcg/actuation powdr for inhalation (Anoro Ellipta) clopidogrel 75 mg tablet (Plavix) 75 mg PO DAILY atria l fibrillation 11/11/24 03/03/25 Rx #90 tabs lisinopril 2.5 mg tablet 2.5 mg PO DAILY hypertension #90 02/02/25 03/03/25 Rx TABLETS Allergy/AdvReac Type Severity Reaction Status Date / Time ibuprofen Allergy Severe Facial Verified 11/06/24 14:44 swelling (angioedema) Family History Brother Diabetes Father , Age 72 stomach ulcers No problems noted. Mother , Age 71 pancreatitis No problems noted. Sister , hepatitis C No problems noted. Surgical History H/O aorto-femoral bypass (~2009) History of transurethral resection of prostate Presence of aortocoronary bypass graft (~03/2013) Social History Smoking Status: Former smoker Tobacco: How many years used: 30 how long ago did patient quit smokin years ROS ROS Narrative Review of Systems: Constitutional: Patient denies fever or chills. Eyes: Patient denies changes vision or discharge from eyes. ENT: Patient denies runny nose, sore throat or ear pain. Resp: Patient admits to dyspnea on exertion that progressed to shortness of breath at rest while changing his oxygen tank as per HPI. His chronic cough is unchanged from previous. CV: Patient denies chest pain, palpitations, heart racing or lower extremity edema. GI: Patient denies abdominal pain, nausea, vomiting, diarrhea or constipation. : Patient denies dysuria or hematuria. MSK: Patient denies arthralgias or myalgias. Skin: Patient denies rash, abscess, wounds or jaundice. Psych: Patient denies symptoms of uncontrolled depression or anxiety. Neuro: Patient denies headache, paresthesias or focal neurologic deficits. Allergy: Patient denies lip swelling, tongue swelling or urticaria. Hematology: Patient admits to easy bleeding on apixaban. Endocrinology: Patient denies polyuria, polydipsia, polyphagia or heat/cold intolerance. 14 point ROS otherwise negative except for positives noted above in HPI. Vital Signs Vital Signs Vital Signs: 03/04/25 14:58 03/04/25 15:01 03/04/25 15:05 Temperature 97.7 F L 97.7 F L Temperature Source Oral Oral Pulse Rate 108 H 108 H Respiratory Rate 16 28 H Respiratory Effort Respiratory Depth Respiratory Pattern Blood Pressure 138/69 H 138/69 H Blood Pressure Mean 92 92 Pulse Ox 100 100 Oxygen Delivery Method Non-Rebreather Nasal Cannula Oxygen Flow Rate (L/min) 4 03/04/25 16:05 03/04/25 16:16 03/04/25 17:00 Temperature 97.8 F 97.8 F Temperature Source Oral Oral Pulse Rate 66 112 H Respiratory Rate 24 H 25 H Respiratory Effort Non-Labored Respiratory Depth Normal Respiratory Pattern Tachypnea Blood Pressure 93/59 L 134/85 H Blood Pressure Mean 70 101 Pulse Ox 97 96 Oxygen Delivery Method Room Air Oxygen Flow Rate (L/min) 03/04/25 18:00 03/04/25 19:00 Temperature 97.9 F 97.9 F Temperature Source Oral Oral Pulse Rate 114 H 117 H Respiratory Rate 18 23 H Respiratory Effort Respiratory Depth Respiratory Pattern Blood Pressure 154/79 H 119/78 Blood Pressure Mean 104 91 Pulse Ox 96 89 Oxygen Delivery Method Room Air Nasal Cannula Oxygen Flow Rate (L/min) 4 Weight Weight: 161 lb 2.526 oz Body Mass Index (BMI) 25.9 Physical Exam Const alert, oriented x3, no apparent distress and average body habitus General Appearance: cooperative HEENT normocephalic, head/scalp atraumatic, hearing grossly normal bilaterally and moist oral mucous membranes Eyes PERRL, EOMs intact bilaterally and conjunctivae normal Neck no lymphadenopathy and supple Resp Resp Narrative: Diminished breath sounds throughout. Cardio Cardio Narrative: Irregular at ~117 bpm. GI normal to inspection, nondistended, normoactive bowel sounds, soft to palpation, non-tender and non-distended Extremity normal to inspection, full ROM and no clubbing, cyanosis or edema Skin Skin Narrative: Patient has evidence of rash, abscess, wounds or jaundice. Neuro oriented x3, CN's II-XII intact bilaterally, moves all extremities and no focal motor deficits Sensorium / Orientation: awake, alert, oriented to person, oriented to place and oriented to time Speech: speech normal Psych affect normal Results Medical Records Data Attestation: I reviewed the patient's medical records Lab / Micro Data Attestation: I reviewed the patient's lab results. 03/05/25 06:08 03/04/25 15:10 Labs: Laboratory Results - last 24 hr 03/04/25 15:10: WBC 7.6, RBC 3.74 L, Hgb 10.1 L, Hct 33.4 L, MCV 89.3, MCH 27.0, MCHC 30.2 L, RDW Std Deviation 54.2 H, RDW Coeff of Reggie 16.5 H, Plt Count 189, MPV 10.2, Immature Gran % (Auto) 0.700, Neut % (Auto) 78.1 H, Lymph % (Auto) 10.1 L, [place] % (Auto) 9.1, Eos % (Auto) 1.6, Baso % (Auto) 0.4, Absolute Neuts (auto) 6.0, Absolute Lymphs (auto) 0.77 L, Nucleated RBC % 0, Sodium 138, P otassium 5.2 H, Chloride 102, Carbon Dioxide 28.6, Anion Gap 8, BUN 37 H, C reatinine 1.86 H, Estim Creat Clear Calc 28.58 L, Est GFR (MDRD) Non-Af 36 L, BUN/Creatinine Ratio 19.7, Glucose 124 H, Calcium 9.3, Troponin T High Sens 44 H , NT pro BNP II 3316 H 03/04/25 17:20: Troponin T Hi Sens 2 Hr 45 H Rhythm Strip Rhythm Strip: Atrial flutter Rate: 108 Ectopy: None Imaging Radiology Impression Chest X-Ray 03/04/25 14:59 IMPRESSION: Cardiomegaly and CHF with small right pleural effusion and bibasilar atelectasis worse at the right lung base. Reading Location: [facility] Assessment & Plan Assessment/Plan (1) CHF exacerbation: QUALIFIERS: Heart failure type: unspecified Qualified Code(s): I 50.9 - Heart failure, unspecified (2) Atrial flutter with rapid ventricular response: (3) Chronic anticoagulation: (4) Elevated troponin: (5) Hyperkalemia: (6) Pleural effusion on right: (7) Acute cystitis with hematuria: (8) Atherosclerosis of coronary artery of menominee heart without angina pectoris: QUALIFIERS: Coronary Disease-Associated Artery/Lesion type: menominee artery Qualified Code(s): I25.10 - Atherosclerotic heart disease of menominee coronary artery without angina pectoris (9) Overweight (BMI 25.0-29.9): PLAN: Plan 1. AE CHF; evidenced by elevated NT pro-BNP II of 3,316 pg/mL with a corresponding CXR that revealed cardiomegaly and CHF with small right pleural effusion and bibasilar atelectasis worse at the Right lung base - Admit to PCU. Give furosemide 40 mg IV twice daily plus supplemental magnesium. Maintain metoprolol and lisinopril as before. Check NT pro-BNP II and CXR daily to follow trend. Check echocardiogram to evaluate LVEF. Serialize troponin. Finally, we will consult [facility] see this patient on rounds in the a.m. further recommendations without appreciated in advance. 2. EKG evidence of Atrial Flutter; with Rapid Ventricular Response of ~117 bpm even after being treated with IV Cardizem bolus likely precipitating #1 in the setting of chronic atrial fibrillation; with patient already on apixaban - Give digoxin 0.25 mg IV once in an effort to keep heart rate <100 bpm. If this is not effective patient will be started on IV diltiazem drip. Maintain apixaban as previous. Check TSH. 3. Elevated troponin T of 44 ng/L suspected to be due to Acute Cardiac Strain due to #1 & #2 - Serialize troponin as noted above in #1. Doubt ACS. 4. Hyperkalemia of 5.2 mmol/L present on admission compounding #1 - #3 - Patient will be treated with IV furosemide for #1. Recheck CMP in a.m. to ensure improvement. 5. UA positive for Acute Cystitis; with microscopic hematuria adding to the medical complexity of #1 - #4 - Start IV ceftriaxone and await culture & sensitivity data. Give acetaminophen prn pain or fever. 6. CAD; s/p CABG x 3 (2012) - Noted with repeat echocardiogram pending for #1. 7. Essential hypertension; on lisinopril and metoprolol BID - Resume home regimen plus give as needed IV hydralazine for systolic blood pressure greater than 160 mmHg. 8. Hyperlipidemia; on pravastatin - Continue statin and check lipid profile. 9. Overweight; with BMI of 26 this admission - Weight loss will be recommended. Check TSH. 10. Former tobacco abuse x ~30 years (quit ~10 years ago); with subsequent COPD plus lung cancer with chronic cough - Noted with no evidence of acute flare at this time. Continue nebulizers as needed. 11. Chronic hypoxic respiratory failure; on 4L NC continuously - Maintain current supplemental oxygen as before. 12. DM-2; of unknown control on insulin glargine 40U sq daily plus sitagliptin plus diabetic neuropathy - ADA/cardiac diet. FSBS q. AC/HS plus SSI. Check hemoglobin A1c to objectively evaluate quality of diabetic control. 13. PVD; with history of LLE ulcer s/p aortofemoral bypass (~2009) on clopidogrel - Resume clopidogrel as previous. 14. History of osteomyelitis of the Left ankle - Noted with no evidence of recurrence at this time. 15. Chronic venous insufficiency - Stable. 16. CKD; stage IIIb - Stable with serum creatinine of 1.86 mg/dL, BUN of 37 mg/dL and EGFR of 36 mL/min present on admission. 17. Chronic anemia - Stable with hemoglobin of 10.1 g/dL and MCV of 89.3 fL present on admission. 18. BPH; s/p TURP - Noted. 19. History of COVID-19 - Noted. 20. OA - Give acetaminophen prn pain or fever as outlined in #5. 21. DVT prophylaxis - Patient already on apixaban for #2 which will be continued. Total time: Approximately (but not less than) 75 minutes. Charges/Coding Visit Charges Inpatient E&M: 19478 Init Hosp L3
[2025-03-04] MEDS: Digoxin 250 MCG/ML Ampul IV (19:49)
[2025-03-04 20:04] LABS: Troponin T High Sens 4 HR 42 ng/L (<=22)
--- NOTE | 2025-03-04 20:08 | ECHOD_ITS ---
Reason For Study Reason For Study: CHF Procedure This was a 2D Doppler, Color Flow transthoracic echocardiogram. The study was technically difficult. Contrast injection was performed. Exam performed in department. Left Ventricle Normal LV size. Moderate concentric left ventricular hypertrophy. The LV ejection fraction is 55 %. Stage 1 diastolic dysfunction. Right Ventricle Normal right ventricle. Atria The left atrium is severely enlarged. The right atrium is mildly enlarged. Mitral Valve Severe mitral valve annular calcification. Moderate posteriorly directed mitral valve regurgitation. Tricuspid Valve Moderate tricuspid valve regurgitation. Estimated pulmonary artery systolic pressure 42 mmHg. Aortic Valve Aortic sclerosis, no stenosis. Pulmonic Valve Mild (1+) pulmonic valve insufficiency. Great Vessels The aortic root is not well visualized. Pericardium/Pleural No pericardial effusion. Medication Diluted definity 2ml given slow IV push to enhance endocardial definition. MMode/2D Measurements & Calculations LVIDd: 4.4 cm IVSd: 1.4 cm LA dimension: 4.8 cm LVIDs: 3.5 cm LVPWd: 1.4 cm FS: 19.7 % LAV(MOD-bp): 49.5 ml LVAd ap4: 35.3 cm2 SV(MOD-sp4): 66.3 ml LAV(MOD-bp) Indexed: 27.1 ml/m2 LVLd ap4: 8.2 cm SI(MOD-sp4): 36.4 ml/m2 LAV(MOD-sp2): 49.9 ml EDV(MOD-sp4): 130.3 ml LAV(MOD-sp4): 39.5 ml EDV(sp4-el): 128.9 ml LVAs ap4: 22.7 cm2 LVLs ap4: 6.6 cm ESV(MOD-sp4): 64.0 ml ESV(sp4-el): 66.2 ml EF(MOD-sp4): 50.9 % EF(sp4-el): 48.7 % SV(sp4-el): 62.7 ml LA A4 area: 17.2 cm2 RA A4 area: 11.6 cm2 Doppler Measurements & Calculations MV E max yue: 149.6 cm/sec TR max yue: 292.2 cm/sec TR max P.1 mmHg ECHO/Echo Complete W/ Contrast Interpretation Summary Moderate concentric left ventricular hypertrophy. The LV ejection fraction is 55 %. Stage 1 diastolic dysfunction. The left atrium is severely enlarged. Severe mitral valve annular calcification. Moderate posteriorly directed mitral valve regurgitation. Moderate tricuspid valve regurgitation. Estimated pulmonary artery systolic pre ssure 42 mmHg. Mild (1+) pulmonic valve insufficiency. The study was technically difficult. Ordering Physician: Nicola Lindsey Referring Physician: SCOTTY ELIZALDE Performed By: Haley Stevens and Student
--- NOTE | 2025-03-04 20:11 | CASEMGMT ---
Care Management Face to Face with patient for initial transition planning/care coordination assessment in the ED.? This senior writer introduced self and role at [facility]. Patient alert and oriented. Patient willing to participate in assessment and is able to answer all questions appropriately.? Care providers, pharmacy, and demographics verified. Admitting Diagnosis: ??SOB Other diagnosis history: ??Afib, CAD, PVD, CKD, hyperlipidemia, anemia, hypertension PCP: ?Alex Specialists: ?Aayush Uriarte Preferred Pharmacy: [facility] Insurance: ?Medicare and [employer] for life Prescription Benefit: yes Living Will/HPOA: ?completed LNOK: ?son Living Arrangements: ?patient lives alone in 2 story home but only uses first floor.? Has been independent with ADLs, DIL helps with IADLs. Transportation: ?DIL / Son DME: ?cane, walker, wheelchair, grab bars, bars around toilet.? Has O2 through [employer], 3 Liters continuous HHC: ?Has used in past, cannot remember company SNF/Rehab: ?[facility] Community Resources: ?none Behavioral Health History: ?none Patient goals: Patient wishes to discharge home, denies need for home health care at this time. Patient denies any further needs or concerns at this time. Disposition Plan: admission to acute; RN CM/SW to follow for discharge planning needs that may arise. Huong Hall, FINANCIAL ANALYST, CDL A DRIVER
[2025-03-04 20:25] LABS: Mucous, Urine 0 SEEN /hpf (<or=2+); Squamous Epithelial Cells - UA 0 SEEN /hpf (0-5)
[2025-03-04 20:26] LABS: Color, Urine Yellow (Yellow); Glucose, Dipstick Normal (Normal); Ketone-Dipstick Negative (Negative); Leukocyte Esterase-Dipstick 500 /ul (Negative); Nitrite-Dipstick Positive (Negative); Occult Blood-Urine 50 /ul (Negative); Protein-Dipstick 100 mg/dl (Negative); Specific Gravity, Urine 1.010 (1.002-1.030); Urine Bilirubin Dipstick Negative (Negative)
[2025-03-04 20:47] LABS: Red Blood Cells-Urine 5-10 SEEN /hpf (0-5)
[2025-03-04 21:15] LABS: Magnesium 2.0 mg/dL (1.5-2.2)
[2025-03-04] MEDS: APIXABAN 5 MG TABLET PO (22:28)
[2025-03-04] MEDS: Magnesium Chloride 64 MG Delay Rel.Tablet 128 MG PO (22:29)
--- OUTSIDE RECORDS SUMMARY | 2025-03-04 23:25 | XMS RPT_ITS | CCD ---
Author Organization [facility] Care Team Providers Care Infusion Therapy Nurse Name Role Phone Dr. Tonio Fajardo Primary Care Provider [phone] Dr. Tonio Fajardo Referring Provider Dr. Issa Looney Attending Provider [phone] Tonio Fajardo DO Primary Care Provider Dr. Tyrell Uriarte Attending Provider Dr. Tonio Fajardo Primary Care Provider [phone] Dr. Tonio Fajardo Referring Provider Brittny SENIOR BOILER OPERATOR, SENIOR BOILER OPERATOR-C Lorie Attending Provider Dr. Russ Zamora Attending Provider Renard SENIOR BOILER OPERATOR, SENIOR BOILER OPERATOR-C Bonny E Attending Provider Renard SENIOR BOILER OPERATOR, SENIOR BOILER OPERATOR-C Bonny E Referring Provider Renard SENIOR BOILER OPERATOR, SENIOR BOILER OPERATOR-C Bonny E Other Provider Dr. Srini Choi Attending Provider Dr. Srini Choi Referring Provider Dr. Srini Choi Other Provider Dr. Mateo Shahid Attending Provider Dr. Issa Looney Attending Provider Dr. Kenyon Flores Referring Provider Unava ilDr. Srini Yanes Referring Provider Dr. Tevin Allen Attending Provider Dr. Tonio Fajardo Primary Care Provider Dr. Tonio Fajardo Referring Provider Dr. Tyrell Uriarte Attending Provider Dr. Issa Looney Attending Provider Dr. Kenyon Flores Referring Provider Unava mp Mart SENIOR BOILER OPERATOR, SENIOR BOILER OPERATOR-C Lorie Attending Provider [phone] Dr. Russ Zamora Attending Provider Renard SENIOR BOILER OPERATOR, SENIOR BOILER OPERATOR-C Bonny E Attending Provider Renard SENIOR BOILER OPERATOR, SENIOR BOILER OPERATOR-C Bonny E Referring Provider Renard SENIOR BOILER OPERATOR, SENIOR BOILER OPERATOR-C Bonny E Other Provider Dr. Srini Choi Attending Provider Dr. Srini Choi Referring Provider Dr. Srini Choi Other Provider Dr. Mateo Shahid Attending Provider [facility] SENIOR BOILER OPERATOR, SENIOR BOILER OPERATOR-C Iker Stephens Attending Provider Tonio Fajardo DO Primary Care Provider JESSIE RODRIGUEZ Referring Unavailable TONIO FAJARDO Primary Care Unavailable TONIO FAJARDO Primary Care Unavailable Dr. Tonio Fajardo Primary Care Provider Dr. Tonio Fajardo Referring Provider Dr. Tonio Fajardo Primary Care Provider [phone] Renard SENIOR BOILER OPERATOR, SENIOR BOILER OPERATOR-C Bonny E Attending Provider [phone] Renard SENIOR BOILER OPERATOR, SENIOR BOILER OPERATOR-C Bonny E Referring Provider Renard SENIOR BOILER OPERATOR, SENIOR BOILER OPERATOR-C Bonny E Other Provider Dr. Tonio Fajardo Referring Provider Dr. Russ Zamora Attending Provider Dr. Tonio Fajardo Primary Care Provider Dr. Srini Choi Attending Provider Steph, Dr. Srini Referring Provider Renard SENIOR BOILER OPERATOR, SENIOR BOILER OPERATOR-C Bonny E Attending Provider Renard SENIOR BOILER OPERATOR, SENIOR BOILER OPERATOR-C Bonny E Referring Provider Renard SENIOR BOILER OPERATOR, SENIOR BOILER OPERATOR-C Bonny E Other Provider Dr. Tonio Fajardo Referring Provider Dr. Russ Zamora Attending Provider Dr. Tonio Fajardo Primary Care Provider Renard SENIOR BOILER OPERATOR, SENIOR BOILER OPERATOR-C Obnny E Attending Provider [phone] Renard SENIOR BOILER OPERATOR, SENIOR BOILER OPERATOR-C Bonny E Referring Provider Renard SENIOR BOILER OPERATOR, SENIOR BOILER OPERATOR-C Bonny E Other Provider Dr. Tonio Fajardo Referring Provider Dr. Russ Zamora Attending Provider Dr. Srini Choi Attending Provider Dr. Tyrell Uriarte Attending Provider Dr. Tonio Fajardo Primary Care Provider Renard SENIOR BOILER OPERATOR, SENIOR BOILER OPERATOR-C Bonny E Attending Provider Renard SENIOR BOILER OPERATOR, SENIOR BOILER OPERATOR-C Bonny E Referring Provider Renard SENIOR BOILER OPERATOR, SENIOR BOILER OPERATOR-C Bonny E Other Provider Dr. Tonio Fajardo Primary Care Provider Renard SENIOR BOILER OPERATOR, SENIOR BOILER OPERATOR-C Bonny E Attending Provider Renard SENIOR BOILER OPERATOR, SENIOR BOILER OPERATOR-C Bonny E Referring Provider [phone] Renard SENIOR BOILER OPERATOR, SENIOR BOILER OPERATOR-C Bonny E Other Provider [phone] Dr. Tonio Fajardo Primary Care Provider Renard SENIOR BOILER OPERATOR, SENIOR BOILER OPERATOR-C Bonny E Attending Provider Renard SENIOR BOILER OPERATOR, SENIOR BOILER OPERATOR-C Bonny E Referring Provider [phone] Renard SENIOR BOILER OPERATOR, SENIOR BOILER OPERATOR-C Bonny E Other Provider Dr. Tonio Fajardo Referring Provider Dr. Tonio Fajardo Primary Care Provider Renard SENIOR BOILER OPERATOR, SENIOR BOILER OPERATOR-C Bonny E Attending Provider Renard SENIOR BOILER OPERATOR, SENIOR BOILER OPERATOR-C Bonny E Referring Provider Renard SENIOR BOILER OPERATOR, SENIOR BOILER OPERATOR-C Bonny E Other Provider Dr. Tonio Fajardo Primary Care Provider Renard SENIOR BOILER OPERATOR, SENIOR BOILER OPERATOR-C Bonny E Attending Provider [phone] Renard SENIOR BOILER OPERATOR, SENIOR BOILER OPERATOR-C Bonny E Referring Provider [phone] Renard SENIOR BOILER OPERATOR, SENIOR BOILER OPERATOR-C Bonny E Other Provider Dr. Tonio Fajardo Primary Care Provider Renard SENIOR BOILER OPERATOR, SENIOR BOILER OPERATOR-C Bonny E Attending Provider Renard SENIOR BOILER OPERATOR, SENIOR BOILER OPERATOR-C Bonny E Referring Provider Renard SENIOR BOILER OPERATOR, SENIOR BOILER OPERATOR-C Bonny E Other Provider Dr. Tonio Fajardo Referring Provider Dr. Russ Zamora Attending Provider Dr. Tonio Fajardo Primary Care Provider Renard SENIOR BOILER OPERATOR, SENIOR BOILER OPERATOR-C Bonny E Attending Provider [phone] Renard SENIOR BOILER OPERATOR, SENIOR BOILER OPERATOR-C Bonny E Referring Provider [phone] Renard SENIOR BOILER OPERATOR, SENIOR BOILER OPERATOR-C Bonny E Other Provider Dr. Francisco Javier Lozada Attending Provider Dr. Joaquim Suárez Referring Provider Dr. Tonio Fajardo Primary Care Provider Renard SENIOR BOILER OPERATOR, SENIOR BOILER OPERATOR-C Bonny E Attending Provider [phone] Renard SENIOR BOILER OPERATOR, SENIOR BOILER OPERATOR-C Bonny E Referring Provider Renard SENIOR BOILER OPERATOR, SENIOR BOILER OPERATOR-C Bonny E Other Provider Dr. Tonio Fajardo Referring Provider Dr. Russ Zamora Attending Provider Dr. Francisco Javier Lozada Attending Provider Dr. Joaquim Suárez Referring Provider Dr. Tonio Fajardo Primary Care Provider [phone] Brittny SENIOR BOILER OPERATOR, SENIOR BOILER OPERATOR-C Lorie Attending Provider RICKIE Alejandra Attending Provider Dr. Tonio Fajardo Primary Care Provider Dr. Tonio Fajardo Referring Provider Dr. Issa Looney Attending Provider Dr. Tonio Fajardo Primary Care Provider [phone] Dr. Tonio Fajardo Referring Provider Dr. Russ Zamora Attending Provider Dr. Tyrell Uriarte Attending Provider Tonio Fajardo DO Primary Care Provider Tonio Fajardo Referring Unavailable Alex, Tonio Primary Care Unavailable Russ Zamora Attending Unavailable Alex, Tonio Primary Care Unavailable Leslie Alejandra Referring Unavail able Leslie Alejandra Attending Unavail able Joaquim Suárez Referring Unavailable Joaquim Suárez Attending Unavailable Alex, Tonio Primary Care Unavailable Brittny SENIOR BOILER OPERATOR, Lorie Consulting Unavailable Tyrell Uriarte Attending Unavailable Alex, Tonio Primary Care Unavailable Mart SENIOR BOILER OPERATOR, Lorie Referring Unavailable Mart SENIOR BOILER OPERATOR, Lorie Attending Unavailable Alex, Tonio Primary Care Unavailable Alex, Tonio Referring Unavailable Alex, Tonio Referring Unavailable AlexTonio Attending Unavailable Alex, Tonio Primary Care Unavailable Joaquim Suárez Referring Unavailable Joaquim Suárez Attending Unavailable Alex, Tonio Primary Care Unavailable Mart SENIOR BOILER OPERATOR, Lorie Attending Unavailable Alex, Tonio Primary Care Unavailable Mart SENIOR BOILER OPERATOR, Lorie Referring Unavailable Prah, Russ Attending Unavailable Prah, Russ Referring Unavailable Alex, Tonio Primary Care Unavailable Suárez, Joaquim Referring Unavailable Suárez, Joaquim Attending Unavailable Alex, Tonio Primary Care Unavailable Srini Choi Unavailable Alex, Tonio Primary Care Unavailable Prah, Russ Referring Unavailable Prah, Russ Attending Unavailable SuárezJoaquim Attending Unavailable Alex, Tonio Primary Care Unavailable Alex, Tonio Referring Unavailable Alex, Tonio Attending Unavailable Alex, Tonio Primary Care Unavailable Alex, Tonio Primary Care Unavailable Prah, Russ Referring Unavailable Prah, Russ Attending Unavailable Alex, Tonio Primary Care Unavailable Prah, Russ Referring Unavailable Prah, Russ Attending Unavailable Alex, Tonio Referring Unavailable Prah, Russ Attending Unavailable Alex, Tonio Primary Care Unavailable Alex, Tonio Referring Unavailable Alex, Tonio Primary Care Unavailable Prah, Russ Attending Unavailable Alex, Tonio Primary Care Unavailable Alex, Tonio Referring Unavailable Mart SENIOR BOILER OPERATOR, Lorie Attending Unavailable Alex, Tonio Primary Care Unavailable Alex, Tonio Referring Unavailable Prah, Russ Attending Unavailable Alex, Tonio Referring Unavailable Alex, Tonio Primary Care Unavailable Leslie Alejandra Attending Unavail able Dr. Tonio Fajardo DO Primary Care Provider [phone] Jose Armando DPM, Dr. March Attending Provider Jose Armando DPM, Dr. aMrch Referring Provider Dr. Tonio Fajardo DO Referring Provider Leslie Alejandra Attending Provider Leslie Alejandra Referring Provider Brittny SENIOR BOILER OPERATOR-C, Lorie Attending Provider Brittny SENIOR BOILER OPERATOR-C, Lorie Referring Provider Brittny SENIOR BOILER OPERATOR-C, Lorie Other Provider Dr. Tyrell Uriarte DO Attending Provider [phone] Dr. Tonio Fajardo DO Attending Provider Dr. Russ Zamora MD Attending Provider [phone] Dr. Russ Zamora MD Referring Provider [phone] Dr. Tonio Fajardo DO Primary Care Provider Dr. Srini Choi DO Other Provider [phone] Dr. Tonio Fajardo DO Primary Care Provider Dr. Tonio Fajardo DO Referring Provider Dr. Russ Zamora MD Attending Provider Dr. Russ Zamora MD Referring Provider Dr. Chris Ochoa MD Emergency Provider [phone] Dr. Nicola Lindsey DO Admit Provider Unavail able Dr. Nicola Lindsey DO Attending Provider Unav ailable Allergies Allergy Classification Reported Allergen(s) Allergy Type Date of Onset Reaction(s) Facility (20 sources) Ibuprofen; 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: [IBUPROFEN] Drug Allergy 2 Shortness of Breath [facility] Work Phone: (1 source) Ibuprofen Drug Allergy 5 [facility] Repository Medications Current Medications Medication Drug Class(es) Dates Sig (Normalized) Sig (Original) cholecalciferol 0.125 mg oral capsule (20 sources) Vitamin D Start: 06-28-2020 take 125 ug by mouth twice daily Cholecalciferol (Vitamin D3) Active 125 MCG PO TWICE A DAY June 28, 2020 1:00am Start: 06-27-2019 End: 11-19-2019 take 5 capsules by mouth twice daily Cholecalciferol (Vitamin D3) 1,000 unit capsule Discontinued 5000 U PO TWICE A DAY June 27, 2019 12:35pm November 19, 2019 3:48pm Start: 06-27-2019 End: 11-19-2019 take 5000 [IU] by mouth twice daily Cholecalciferol (Vitamin D3) Discontinued 5000 UNIT PO TWICE A DAY June 27, 2019 12:35pm November 19, 2019 3:48pm Start: 12-03-2013 End: 06-27-2019 take 1 capsule by mouth twice daily Cholecalciferol (Vitamin D3) 1,000 UNIT capsule Discontinued 1000 U PO TWICE A DAY December 03, 2013 12:00am June 27, 2019 12:36pm take [address] [facility] once daily cholecalciferol, vitamin D3, (VITAMIN D-3) 10 mcg (400 unit) cap Take 400 Units by mouth once daily. Active Comment on above: Take 400 Units by mo [facility] once daily. clopidogrel 75 mg oral tablet (20 sources) [id number] Platelet Inhibitor Start: 0 End: 5 take 1 tablet by mouth once daily Clopidogrel (Plavix) 75 mg tablet Active 75 mg PO DAILY 90 3 November 11, 2024 3:07pm atrial fibrillation Start: 10-24-2018 End: 11-19-2019 take 1 tablet by mouth once daily Clopidogrel (Plavix) 75 mg tablet Discontinued 75 mg PO DAILY 90 3 June 27, 2019 12:37pm November 19, 2019 3:48pm colestipol hydrochloride 1000 mg oral tablet (13 sources) Bile Acid Sequestrant Start: 06-28-2020 colestipol (COLESTID) 1 gram tablet 03/27/2022 Active Cranberry (7 sources) Non-Standardized Food Allergenic Extract, Non-Standardized Plant Allergenic Extract Start: 07-25-2023 take 1 capsule by mouth once daily at mealtime Cranberry 500 mg capsule Active 500 mg PO DAILY July 25, 2023 1:00am supplement administer with meals Start: 07-25-2023 take 1 capsule by mo [facility] once daily at mealtime Cranberry 500 mg capsule Active 500 mg PO DAILY July 25, 2023 1:00am administer with meals Start: 07-25-2023 take 500 mg by mouth once daily at mealtime Cranberry Active 500 MG PO DAILY July 25, 2023 1:00am administer with meals Start: 07-25-2023 take 500 mg by mouth once daily at mealtime Cranberry Active 500 MG PO DAILY July 25, 2023 12:00am administer with meals docusate sodium 100 mg oral capsule (10 sources) Start: 07-25-2023 take 1 capsule by mouth once daily as needed Docusate Sodium (Colace) 100 mg capsule Active 100 mg PO DAILY as needed for stool softn July 25, 2023 1:00am Start: 04-14-2022 take 1 capsule by mo ut once daily as needed Docusate Sodium (Colace) 100 mg Capsule Active 100 MG PO DAILY NEEDED April 14, 2022 12:00am fish oil/borage/flax/om3,6,9 1 (OMEGA 3-6-9 COMPLEX ORAL) (5 sources) fish oil/borage/ flax/om3,6,9 1 (OMEGA 3-6-9 COMPLEX ORAL) Take by mouth. Active fish oil/borage/ flax/om3,6,9 1 (OMEGA 3-6-9 COMPLEX ORAL) Take by mouth. 0 Active Comment on above: Take by mouth. Fish,Bora,Flax Oils-Om3,6,9no1 (Colrain 3-6-9) 1,200 mg Capsule (8 sources) Start: 11-02-2021 take 1 capsule by mouth twice daily Fish,Bora,Flax Oils-Om3,6,9no1 (Colrain 3-6-9) 1,200 mg Capsule Active 1 CAP PO TWICE A DAY November 02, 2021 1:31pm Start: 11-02-2021 take 1 capsule by mo uth twice daily Fish,Bora,Flax Oils-Om3,6,9no1 (Colrain 3-6-9) 1,200 mg Capsule Active 1 CAP PO TWICE A DAY November 02, 2021 12:00am glyBURIDE 2.5 mg oral tablet (13 sources) Sulfonylurea Start: 03-21-2017 glyBURIDE (ANTHONY BETA) 2.5 mg tablet Take 2.5 mg by mouth. 03/21/2017 Active Start: 03-21-2017 take 1.25 mg by mout h twice daily Glyburide Active 1.25 MG PO TWICE A DAY March 21, 2017 12:00am Comment on above: Take 2.5 mg by mouth . 12 hr guaiFENesin 1200 mg extended release oral tablet (4 sources) Start: 10-23-2024 take 1 tablet by mouth every twelve hours Guaifenesin 1,200 mg tablet extended release 12hr Active 1200 mg PO Q12H 180 6 October 23, 2024 1:00am 3 ml insulin glargine 100 unt/ml pen injector (20 sources) Insulin Analog Start: 03-26-2022 LANTUS SOLOSTAR U-100 INSULIN 100 unit/mL (3 mL) 03/26/2022 Active Start: 11-19-2019 inject 40 [IU] by frias bcutaneous injection once daily Insulin Glargine Active 40 UNIT SQ DAILY November 18, 2019 11:00pm Start: 11-19-2019 inject 40 [IU] by frias bcutaneous injection once daily Insulin Glargine Active 40 UNIT SQ DAILY November 19, 2019 12:00am Start: 11-19-2019 inject 14 [IU] by frias bcutaneous injection once daily Insulin Glargine Active 14 UNIT SQ DAILY November 18, 2019 11:00pm Start: 11-19-2019 inject 14 [IU] by frias bcutaneous injection once daily Insulin Glargine Active 14 UNIT SQ DAILY November 19, 2019 12:00am Start: 11-19-2019 inject 14 [IU] by frias bcutaneous injection once daily Insulin Glargine Active 14 UNIT SQ DAILY November 19, 2019 3:47pm Start: 08-23-2017 End: 11-19-2019 Insulin Glargine (Lantus U-1 00 Insulin) 100 unit/mL solution Discontinued 10 U SC daily August 23, 2017 1:00am November 19, 2019 3:49pm Insulin Glargine 100 UNIT/ML solution (4 sources) Start: 11-19-2019 inject 30 [IU] by subcutaneous injection once daily Insulin Glargine 100 UNIT/ML solution Active 30 U SQ DAILY November 19, 2019 12:00am diabetes Start: 11-19-2019 inject 40 [IU] by frias bcutaneous injection once daily Insulin Glargine 100 UNIT/ML solution Active 40 U SQ DAILY November 19, 2019 12:00am lisinopril 2.5 mg oral tablet (20 sources) Angiotensin Converting Enzyme Inhibitor Start: 10-16-2022 End: 10-20-2022 Lisinopril Discontinued MG PO October 16, 2022 1:00am October 20, 2022 10:38am Start: 02-14-2022 End: 02-02-2025 take 1 tablet by mouth once daily Lisinopril 2.5 mg tablet Active 2.5 mg PO DAILY 90 February 02, 2025 9:37am hypertension Start: 06-28-2020 End: 11-29-2021 take 1 tablet by mouth once daily Lisinopril 2.5 mg tablet Discontinued 2.5 mg PO DAILY 90 September 13, 2020 10:40am November 29, 2021 11:37am Start: 07-04-2019 End: 11-19-2019 take 1.25 mg by mouth twice daily Lisinopril 2.5 mg tablet Discontinued 1.25 mg PO TWICE A DAY July 04, 2019 10:43am November 19, 2019 3:49pm Start: 07-04-2019 End: 11-19-2019 take 1.25 mg by mouth twice daily Lisinopril Discontinued 1.25 MG PO TWICE A DAY July 04, 2019 10:43am November 19, 2019 3:49pm Start: 07-01-2019 End: 07-04-2019 take 0.125 mg by mouth twice daily Lisinopril 2.5 mg tablet Discontinued 0.125 mg PO TWICE A DAY July 01, 2019 5:04pm July 04, 2019 10:44am Start: 07-01-2019 End: 07-04-2019 take 0.125 mg by mouth twice daily Lisinopril Discontinued 0.125 MG PO TWICE A DAY July 01, 2019 5:04pm July 04, 2019 10:44am Start: 10-24-2018 End: 07-01-2019 take 0.125 mg by mouth once daily Lisinopril 2.5 mg tablet Discontinued 0.125 mg PO daily June 27, 2019 12:37pm July 01, 2019 5:05pm Start: 10-24-2018 End: 07-01-2019 take 0.125 mg by mouth once daily Lisinopril Discontinued 0.125 MG PO daily June 27, 2019 12:37pm July 01, 2019 5:05pm Start: 08-23-2017 End: 10-24-2018 take 1 tablet by mouth once daily Lisinopril 2.5 mg tablet Discontinued 2.5 mg PO daily August 01, 2018 10:48am October 24, 2018 3:16pm Start: 02-17-2014 End: 08-23-2017 take 2.5 mg by mouth once daily Lisinopril 5 MG tablet Discontinued 2.5 mg PO DAILY February 17, 2014 12:00am August 23, 2017 5:32pm Start: 02-17-2014 End: 08-23-2017 take 2.5 mg by mouth once daily Lisinopril Discontinue d 2.5 MG PO DAILY February 17, 2014 12:00am August 23, 2017 5:32pm Magic Mouth Wash (Bmx) (6 sources) Start: 06-28-2022 Magic Mouth Wa sh (Bmx) Active 15 ML PO .qid 180 June 28, 2022 1:00am diphenhydramine 12.5 mg/5 mL oral liquid 60 mL; aluminum-mag hydroxide-simethicone 400 mg-400 mg-40 mg/5 mL oral susp 60 mL; Lidocaine Viscous 2 % mucosal solution 60 mL; Per 180 mL Start: 06-28-2022 Magic Mouth Wa sh (Bmx) Active 15 ML PO .qid 180 June 28, 2022 12:00am diphenhydramine 12.5 mg/5 mL oral liquid 60 mL; aluminum-mag hydroxide-simethicone 400 mg-400 mg-40 mg/5 mL oral susp 60 mL; Lidocaine Viscous 2 % mucosal solution 60 mL; Per 180 mL Multivitamin (Daily Multi-Vitamin) tablet (20 sources) Start: 06-28-2020 take 1 tablet by mouth once daily Multivitamin (Daily Multi-Vitamin) tablet Active 1 TABLET PO DAILY June 28, 2020 3:07pm Start: 06-28-2020 Multivitamin ( Daily Multi-Vitamin) tablet Active 1 {tbl} PO DAILY June 28, 2020 1:00am supplement Start: 06-28-2020 Multivitamin ( Daily Multi-Vitamin) tablet Active 1 {tbl} PO DAILY June 28, 2020 1:00am Start: 06-28-2020 take 1 tablet by marika th once daily Multivitamin (Daily Multi-Vitamin) tablet Active 1 TABLET PO DAILY June 28, 2020 12:00am Start: 06-28-2020 take 1 tablet by marika th once daily Multivitamin (Daily Multi-Vitamin) tablet Active 1 TABLET PO DAILY June 28, 2020 1:00am MULTIVITAMIN ORAL (5 sources) MULTIVITAMIN ORA L Take by mouth. Active MULTIVITAMIN ORA L Take by mouth. 0 Active Comment on above: Take by mouth. pravastatin sodium 20 mg oral tablet (20 sources) HMG-CoA Reductase Inhibitor Start: 2 take 1 tablet by mouth once daily Pravastatin 20 mg tablet Active 20 mg PO DAILY January 17, 2022 12:00am hyperlipidemia Start: 12-03-2013 End: 06-27-2019 take 1 tablet by mouth once daily Pravastatin 20 MG tablet Discontinued 20 mg PO DAILY December 03, 2013 12:00am June 27, 2019 12:37pm SITagliptin 50 mg oral tablet (20 sources) Dipeptidyl Peptidase 4 Inhibitor Start: 11-02-2021 take 1 tablet by mouth once daily Sitagliptin Phosphate (Januvia) 50 mg Tablet Active 50 mg PO DAILY November 02, 2021 12:00am diabetes Start: 02-17-2014 End: 04-08-2014 take 1 tablet by mouth once daily Sitagliptin Phosphate (Januvia) 50 MG tablet Discontinued 50 mg PO DAILY February 17, 2014 12:00am April 08, 2014 2:25pm 7 actuat umeclidinium 0.0625 mg/actuat / vilanterol 0.025 mg/actuat dry powder inhaler (10 sources) Anticholinergic, beta2-Adrenergic Agonist Start: 10-23-2024 Umeclidinium-Vilanterol (Anoro Ellipta) 62.5-25 mcg/actuation blister with device Active 1 NMA INHALATION daily 60 October 23, 2024 1:00am Start: 07-25-2023 End: 02-15-2024 Umeclidinium-Vilanterol (Ano ro Ellipta) 62.5-25 mcg/actuation blister with device Discontinued 1 NMA INHALATION DAILY July 25, 2023 1:00am February 15, 2024 11:25am Start: 07-25-2023 Umeclidinium-V ilanterol (Anoro Ellipta) 62.5-25 mcg/actuation blister with device Active 1 INH INHALATION DAILY July 25, 2023 1:00am Umeclidinium-Vilanterol (Ano ro Ellipta) 62.5-25 mcg/actuation blister with device (1 source) Start: 10-23-2024 Umeclidinium-V ilanterol (Anoro Ellipta) 62.5-25 mcg/actuation blister with device Active 1 NMA INHALATION daily 60 3 October 23, 2024 1:00am copd Completed/Discontinued Medications Medication Drug Class(es) Dates Sig (Normalized) Sig (Original) acetaminophen 325 mg oral tablet (20 sources) Start: 02-07-2014 End: 11-19-2019 take 1 tablet by mouth every eight hours as needed for pain Acetaminophen 325 MG tablet Discontinued 325 mg PO EVERY 8 HOURS NEEDED as needed for Pain February 07, 2014 12:00am November 19, 2019 3:48pm [id number] 200 actuat albuterol 0.09 mg/actuat metered dose inhaler (13 sources) beta2-Adrenergic Agonist Start: 10-31-2023 End: 10-23-2024 Albuterol Sulfate 90 mcg/actuation HFA aerosol inhaler Discontinued 2 NMA INHALATION Q4H as needed for shortness of breath or wheezing 3 February 15, 2024 11:25am October 23, 2024 3:35pm administer with spacer Start: 10-31-2023 take 1 puff(s) by in halation every four hours Albuterol Sulfate Active 2 PUFF INHALATION Q4H October 31, 2023 12:00am administer with spacer albuterol 0.833 mg/ml / ipratropium bromide 0.167 mg/ml inhalation solution (20 sources) Anticholinergic, beta2-Adrenergic Agonist Start: 06-18-2013 End: 08-25-2013 take 1 mL by inhalation three times daily Ipratropium-Albuterol 3 ML Ampul.Neb Discontinued 3 mL INHALATION THREE TIMES A DAY June 18, 2013 12:00am August 25, 2013 10:01am Start: 06-18-2013 End: 08-25-2013 take 1 mL by inhalation three times daily Ipratropium-Albuterol Discontinued 3 ML INHALATION THREE TIMES A DAY June 18, 2013 12:00am August 25, 2013 10:01am amoxicillin 875 mg / clavulanate 125 mg oral tablet (20 sources) Penicillin-class Antibacterial Start: 01-22-2023 End: 06-08-2023 Amoxicillin-Pot Clavulanate 875-125 mg tablet Discontinued 1 {tbl} PO Q12H 28 14 January 22, 2023 12:00am June 08, 2023 11:58am Start: 01-22-2023 End: 06-08-2023 take 1 tablet by mouth every twelve hours Amoxicillin-Pot Clavulanate Discontinued 1 TABLET PO Q12H 28 January 22, 2023 12:00am June 08, 2023 11:58am Start: 01-12-2023 End: 01-22-2023 Amoxicillin-Pot Clavulanate 875-125 mg tablet Discontinued 1 {tbl} PO TWICE A DAY 28 14 January 12, 2023 12:00am January 22, 2023 3:27pm Start: 01-12-2023 End: 01-22-2023 take 1 tablet by mouth twice daily Amoxicillin-Pot Clavulanate Discontinued 1 TABLET PO TWICE A DAY 28 14 January 12, 2023 12:00am January 22, 2023 3:27pm Start: 07-25-2022 End: 10-16-2022 Amoxicillin-Pot Clavulanate 875-125 mg tablet Discontinued 1 {tbl} PO Q12H 28 14 0 July 25, 2022 1:00am October 16, 2022 2:32pm Start: 07-25-2022 End: 10-16-2022 take 1 tablet by mouth every twelve hours Amoxicillin-Pot Clavulanate Discontinued 1 TABLET PO Q12H 28 14 July 25, 2022 1:00am October 16, 2022 2:32pm Start: 05-24-2022 End: 07-19-2022 Amoxicillin-Pot Clavulanate 875-125 mg tablet Discontinued 1 {tbl} PO Q12H 28 14 0 May 24, 2022 12:00am July 19, 2022 3:25pm Start: 05-24-2022 End: 07-19-2022 take 1 tablet by mouth every twelve hours Amoxicillin-Pot Clavulanate Discontinued 1 TABLET PO Q12H 28 14 May 24, 2022 12:00am July 19, 2022 3:25pm apixaban 5 mg oral tablet (17 sources) Factor Xa Inhibitor Start: 07-26-2023 End: 08-04-2024 take 1 tablet by mouth twice daily Apixaban (Eliquis) 5 mg tablet Discontinued 5 mg PO TWICE A DAY 180 3 August 29, 2023 2:19pm August 04, 2024 8:56am ascorbic acid 500 mg oral capsule (20 sources) Vitamin C Start: 08-22-2017 End: 08-23-2017 take 1 capsule by mouth once daily Ascorbic Acid (Vitamin C) 500 mg capsule Discontinued 500 mg PO daily 0 August 22, 2017 1:00am August 23, 2017 5:30pm aspirin 81 mg delayed release oral tablet (20 sources) Platelet Aggregation Inhibitor, Nonsteroidal Anti-inflammatory Drug Start: 08-22-2017 End: 07-26-2023 Aspirin (Adult Low Dose Aspirin) 81 mg tablet,delayed release (DR/EC) Discontinued 81 mg PO daily August 22, 2017 1:00am July 26, 2023 2:57pm Comment on above: Take by mouth. calcium ascorbate 500 mg oral tablet (20 sources) Start: 12-03-2013 End: 03-21-2017 take 1 tablet by mouth twice daily Ascorbate Calcium (Vitamin C) 500 MG tablet Discontinued 500 mg PO TWICE A DAY December 03, 2013 12:00am March 21, 2017 2:47pm cephalexin 500 mg oral capsule (12 sources) Cephalosporin Antibacterial Start: 05-02-2023 End: 06-08-2023 take 1 capsule by mouth three times daily Cephalexin 500 mg capsule Discontinued 500 mg PO THREE TIMES A DAY 42 14 0 May 02, 2023 12:00am June 08, 2023 11:59am Start: 04-05-2022 End: 04-15-2022 take 1 capsule by mouth three times daily cephALEXin (KEFLEX) 500 mg capsule Indications: Burning with urination Take 1 capsule by mouth three times daily for 10 days. 30 capsule 0 04/05/2022 04/15/2022 Active Comment on above: Take [address] [facility] three times daily for 10 days. ciprofloxacin 250 mg oral tablet (20 sources) Quinolone Antimicrobial Start: End: take 1 tablet by mouth twice daily Ciprofloxacin Hcl 250 MG tablet Discontinued 250 mg PO TWICE A DAY 10 0 August 28, 2013 1:00am November 26, 2013 10:42am 0.3 ml darbepoetin scott 0.2 mg/ml prefilled syringe (20 sources) Erythropoiesis-stimu lating Agent Start: End: Darbepoetin Scott In Polysorbat (Aranesp (In Polysorbate)) 60 MCG/0.3 ML Ml Discontinued 60 ug SC EVERY WEEK June 18, 2013 12:00am August 25, 2013 10:01am diphenhydrAMINE hydrochloride 25 mg oral capsule (20 sources) Histamine-1 Receptor Antagonist Start: End: take 1 capsule by mouth three times daily as needed Diphenhydramine Hcl (Benadryl) 25 MG capsule Discontinued 25 mg PO 3 TIMES DAILY NEEDED as needed for Itching December 03, 2013 12:00am March 21, 2017 2:47pm doxycycline hyclate 100 mg oral capsule (4 sources) Tetracycline-class Drug Start: 024 End: 02-06-2 025 take 1 capsule by mouth twice daily Doxycycline Hyclate 100 mg capsule Discontinued 100 mg PO TWICE A DAY 28 14 0 April 01, 2024 12:00am September 25, 2024 2:02pm dutasteride 0.5 mg oral capsule (20 sources) 5-alpha Reductase Inhibitor Start: End: take 1 capsule by mouth once daily Dutasteride (Avodart) 0.5 MG capsule Discontinued 0.5 mg PO DAILY August 25, 2013 1:00am November 26, 2013 10:41am Fish Oil-Fat Acid Comb.8-Hb137 ([place] 3-6-9 1,200 Mg Softgel) 1,200 MG capsule (20 sources) Start: End: Fish Oil-Fat Acid Comb.8-Hb137 ([place] 3-6-9 1,200 Mg Softgel) 1,200 MG capsule Discontinued 1000 MG PO TWICE A DAY December 03, 2013 11:07am March 21, 2017 2:47pm Start: 12-03-2013 End: 03-21-2017 Fish Oil-Fat Acid Comb.8-Hb1 37 ([place] 3-6-9 1,200 Mg Softgel) 1,200 MG capsule Discontinued 1000 mg PO TWICE A DAY December 03, 2013 12:00am March 21, 2017 2:47pm Start: 12-03-2013 End: 03-21-2017 Fish Oil-Fat Acid Comb.8-Hb1 37 ([place] 3-6-9 1,200 Mg Softgel) 1,200 MG capsule Discontinued 1000 MG PO TWICE A DAY December 02, 2013 11:00pm March 21, 2017 1:47pm Start: 12-03-2013 End: 03-21-2017 Fish Oil-Fat Acid Comb.8-Hb1 37 ([place] 3-6-9 1,200 Mg Softgel) 1,200 MG capsule Discontinued 1000 MG PO TWICE A DAY December 03, 2013 12:00am March 21, 2017 2:47pm Fish,Bora,Flax Oils-Om3,6,9n o1 (20 sources) Start: 03-21-2017 End: 11-19-2019 Fish,Bora,Flax Oils-Om3,6,9n o1 Discontinued March 21, 2017 2:45pm November 19, 2019 3:48pm Start: 03-21-2017 End: 11-19-2019 Fish,Bora,Flax Oils-Om3,6,9n o1 Discontinued March 20, 2017 11:00pm November 19, 2019 2:48pm Start: 03-21-2017 End: 11-19-2019 Fish,Bora,Flax Oils-Om3,6,9n o1 Discontinued March 21, 2017 12:00am November 19, 2019 3:48pm Fish,Bora,Flax Oils-Om3,6,9n o1 1,200 MG capsule (4 sources) Start: 03-21-2017 End: 11-19-2019 Fish,Bora,Flax Oils-Om3,6,9n o1 1,200 MG capsule Discontinued March 21, 2017 12:00am November 19, 2019 3:48pm Stmtcmrciup-Lwhnnmkzn-Gkgasn er (4 sources) Start: 02-15-2024 End: 09-25-2024 Trpinaeemhh-Zsfenolum-Cmbyvn er (Trelegy Ellipta) 200-62.5-25 mcg blister with device Discontinued 1 NMA INHALATION DAILY 3 February 15, 2024 12:00am September 25, 2024 2:02pm Start: 02-15-2024 End: 09-25-2024 Msfwaddtwbo-Adhpfltgy-Tjuqng er (Trelegy Ellipta) 200-62.5-25 mcg blister with device Discontinued 1 NMA INHALATION DAILY February 15, 2024 12:00am September 25, 2024 2:02pm gabapentin 100 mg oral capsule (20 sources) Anti-epileptic Agent Start: 04-08-2014 End: 03-21-2017 take 1 capsule by mouth three times daily at mealtime Gabapentin 100 MG capsule Discontinued 100 mg PO 3 TIMES DAILY WITH MEALS April 08, 2014 12:00am March 21, 2017 2:46pm heparin sodium, porcine 5000 unt/ml injectable solution (20 sources) Unfractionated Heparin, Anti-coagulant Start: 06-18-2013 End: 06-20-2013 Heparin (Porcine) 5,000 UNITS/ML syringe Discontinued 5000 U SC EVERY 8 HOURS June 18, 2013 12:00am June 20, 2013 11:57am Start: 06-18-2013 End: 06-20-2013 Heparin (Porcine) Discontinu ed 5000 UNITS SC EVERY 8 HOURS June 18, 2013 12:00am June 20, 2013 11:57am 3 ml insulin detemir 100 unt/ml pen injector (20 sources) Insulin Analog Start: 06-18-2013 End: 08-25-2013 Insulin Detemir U-100 (Levemir Flextouch U100 Insulin) 100 UNITS/ML Flexpen Discontinued 25 U SC AT BEDTIME June 18, 2013 12:00am August 25, 2013 10:01am Start: 06-18-2013 End: 08-25-2013 Insulin Detemir U-100 (Levem ir Flextouch U-100 Insuln) 100 UNITS/ML Flexpen Discontinued 25 UNITS SC AT BEDTIME June 18, 2013 12:00am August 25, 2013 10:01am lactobacillus acidophilus [id number] unt oral capsule (20 sources) Start: 05-24-2022 End: 07-19-2022 take 1 capsule by mouth once daily Lactobacillus Acidophilus (Probiotic Gold Acidophilus) 1 billion cell capsule Discontinued 1000 NMA PO DAILY 21 21 0 May 24, 2022 12:00am July 19, 2022 3:27pm levoFLOXacin 250 mg oral tablet (20 sources) Quinolone Antimicrobial Start: 02-16-2020 End: 02-26-2020 take 1 tablet by mouth once daily, then take 2 tablets by mouth once daily Levofloxacin 250 MG tablet Discontinued 250 mg PO DAILY 11 10 0 February 16, 2020 12:00am February 25, 2020 12:00am February 26, 2020 12:02am Delayed wound healing Other injury of unspecified body region take a loading dose of two tablets on the first day only. linagliptin 5 mg oral tablet (20 sources) Dipeptidyl Peptidase 4 Inhibitor Start: 08-22-2017 End: 10-24-2018 take 1 tablet by mouth once daily Linagliptin (Tradjenta) 5 mg tablet Discontinued 5 mg PO daily August 22, 2017 1:00am October 24, 2018 3:15pm lutein 20 mg oral capsule (20 sources) Start: 11-02-2021 End: 10-16-2022 take 1 capsule by mouth once daily Lutein 20 mg Capsule Discontinued 20 mg PO DAILY November 02, 2021 12:00am October 16, 2022 2:33pm Start: 06-27-2019 End: 11-19-2019 take 1 capsule by mouth once daily Lutein 6 mg capsule Discontinued 6 mg PO DAILY June 27, 2019 1:00am November 19, 2019 3:50pm lutein 10 mg tab Take by mouth. Active Comment on above: Take by mouth. metoprolol tartrate 25 mg oral tablet (20 sources) beta-Adrenergic Leyla Start: 07-27-2023 End: 06-18-2024 Metoprolol Tartrate 25 mg tablet Discontinued 12.5 mg PO TWICE A DAY 45 3 January 24, 2024 2:08pm June 18, 2024 4:35pm Start: 07-27-2023 take 12.5 mg by mout h twice daily Metoprolol Tartrate Active 12.5 MG PO TWICE A DAY July 27, 2023 2:33pm Start: 07-25-2023 End: 07-27-2023 take 1 tablet by mouth once daily Metoprolol Tartrate 25 mg tablet Discontinued 25 mg PO DAILY July 25, 2023 1:00am July 27, 2023 2:33pm Start: 11-02-2021 End: 07-19-2022 Metoprolol Tartrate 25 mg Ta blet Discontinued 12.5 mg PO DAILY November 02, 2021 12:00am July 19, 2022 3:26pm Start: 11-02-2021 End: 07-19-2022 take 12.5 mg by mouth once daily Metoprolol Tartrate Discontinued 12.5 MG PO DAILY November 02, 2021 12:00am July 19, 2022 3:26pm Start: 06-28-2020 End: 01-06-2021 take 2 tablets by mouth once daily Metoprolol Succinate 25 mg tablet extended release 24 hr Discontinued 12.5 mg PO DAILY 90 August 06, 2020 9:55am January 06, 2021 2:32pm Start: 06-28-2020 End: 01-06-2021 take 12.5 mg by mouth once daily Metoprolol Succinate Discontinued 12.5 MG PO DAILY August 06, 2020 9:55am January 06, 2021 2:32pm Start: 06-18-2013 End: 11-19-2019 Metoprolol Tartrate 25 mg ta blet Discontinued 12.5 mg PO TWICE A DAY 180 3 January 30, 2019 12:43pm June 27, 2019 12:37pm Start: 06-18-2013 End: 11-19-2019 take 12.5 mg by mouth twice daily Metoprolol Tartrate Discontinued 12.5 MG PO TWICE A DAY 180 January 30, 2019 12:43pm June 27, 2019 12:37pm Multivitamin preparation (20 sources) Start: 06-27-2019 End: 11-19-2019 take 1 tablet by mouth once daily Multivitamin Discontinued 1 TABLET PO DAILY June 27, 2019 12:36pm November 19, 2019 3:50pm Start: 06-27-2019 End: 11-19-2019 take 1 tablet by mouth once daily Multivitamin Discontinued 1 TABLET PO DAILY June 27, 2019 12:00am November 19, 2019 2:50pm Start: 06-27-2019 End: 11-19-2019 take 1 tablet by mouth once daily Multivitamin Discontinued 1 TABLET PO DAILY June 27, 2019 1:00am November 19, 2019 3:50pm Multivitamin tablet (4 sources) Start: 06-27-2019 End: 11-19-2019 Multivitamin tablet Discontinued 1 {tbl} PO DAILY June 27, 2019 1:00am November 19, 2019 3:50pm mupirocin 0.02 mg/mg topical ointment (13 sources) RNA Synthetase Inhibitor Antibacterial Start: 01-22-2023 End: 06-08-2023 Mupirocin 2 % ointment Discontinued 1 NMA TOPICAL DAILY 15 14 January 22, 2023 12:00am June 08, 2023 12:01pm omeprazole 20 mg delayed release oral tablet (20 sources) Proton Pump Inhibitor Start: 06-28-2022 End: 06-28-2022 take 1 tablet by mouth twice daily Omeprazole Magnesium (Prilosec Otc) 20 mg tablet,delayed release (DR/EC) Discontinued 20 mg PO TWICE A DAY June 28, 2022 1:00am June 28, 2022 3:33pm Start: 06-18-2013 End: 08-25-2013 take 1 capsule by mouth once daily Omeprazole 20 MG capsule Discontinued 20 mg PO DAILY June 18, 2013 12:00am August 25, 2013 10:01am polyethylene glycol 3350 06166 mg powder for oral solution (20 sources) Osmotic Laxative Start: 06-18-2013 End: 08-25-2013 take 17 g by mouth once daily Polyethylene Glycol 3350 17 GM Packet Discontinued 17 g PO DAILY June 18, 2013 12:00am August 25, 2013 10:01am potassium chloride 20 meq extended release oral tablet (20 sources) Start: 06-18-2013 End: 08-25-2013 Potassium Chloride (Klor-Con M20) 20 MEQ tablet Discontinued 40 meq PO DAILY June 18, 2013 12:00am August 25, 2013 10:01am tamsulosin hydrochloride 0.4 mg oral capsule (20 sources) alpha-Adrenergic Leyla Start: 03-21-2017 End: 03-06-2018 Tamsulosin 0.4 MG capsule Discontinued March 21, 2017 12:00am March 06, 2018 3:46pm Start: 03-21-2017 End: 03-06-2018 Tamsulosin Discontinued 2016 12:00am March 06, 2018 3:46pm Start: 08-25-2013 End: 11-26-2013 take 1 capsule by mouth once daily Tamsulosin 0.4 MG capsule Discontinued 0.4 mg PO DAILY August 25, 2013 1:00am November 26, 2013 10:41am Problems Active Problems Problem Classification Problem Date Documented Date Episodic/Chronic Acquired foot deformities (20 sources) Hammer toe; 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: [Other hammer toe(s) (acquired), right foot] 11-24-2020 Chronic Cancer of bronchus; lung (20 sources) Malignant neoplasm of upper lobe, right bronchus or lung; 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: [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 Comes for follow up.CT on 04/10/2023 shows stable RUL lung mass. CT 10/12/2023 reviewed, shows new R LL nodule. Labs reviewed.PET/CT 11/06/2023 reviewed, newly enhancing nodule in right hemithorax does not fulfill criteria for viable cancer, viable tumor in left adrenal gland.CT on 01/28/2024 reviewed, stable changes in lung and L adrenal gland.Comes for follow up.CT.04/2024 shows stable changes in lungs and L adrenal gland.Liquid biopsy on 01/28/2024 was negative.Discussed findings. Clinically stable. 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 Comes for follow up.CT on 04/10/2023 shows stable RUL lung mass. CT 10/12/2023 reviewed, shows new R LL nodule. Labs reviewed.PET/CT 11/06/2023 reviewed, newly enhancing nodule in right hemithorax does not fulfill criteria for viable cancer, viable tumor in left adrenal gland.CT on 01/28/2024 reviewed, stable changes in lung and L adrenal gland.Liquid biopsy on 01/28/2024 was negative.Comes for follow up.CT 10/31/2023 shows increase in R pleural effusion with loss of volume R lung and stable adrenal glands.Discussed findings. Clinically stable.No evidence of progressive disease. Cancer of bronchus; lung (20 sources) History of malignant neoplasm of thoracic cavity structure; 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: [Personal history of other malignant neoplasm of bronchus and lung] 10-03-2022 Episodic Cardiac dysrhythmias (20 sources) Irregular heart beat; 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: [Cardiac arrhythmia, unspecified] 07-25-2023 Chronic Cardiac dysrhythmias (20 sources) Bradycardia; 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: [Bradycardia, unspecified] 01-06-2021 Episodic Chronic kidney disease (20 sources) Chronic kidney disease stage 3; 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: [Stage 3 chronic kidney disease] 08-25-2020 Chronic Chronic obstructive pulmonary disease and bronchiectasis (20 sources) Chronic obstructive lung disease; 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: [Chronic obstructive pulmonary disease, unspecified] Onset: 10-30-2024 12-13-2022 Chronic Chronic ulcer of skin (20 sources) 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 without evidence of necrosis; 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: [Ulcer of right foot with bone involvement without evidence of necrosis] Onset: 04-25-2024 Chronic Congestive heart failure; nonhypertensive (3 sources) Acute exacerbation of chronic congestive heart failure; 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: [Heart failure, unspecified] 03-04-2025 Chronic Coronary atherosclerosis and other heart disease (20 sources) Coronary atherosclerosis; 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: [Atherosclerotic heart disease of [place] coronary artery without angina pectoris] Onset: 02-27-2024 06-28-2020 Chronic Comment on above: CABG x 3 APPIAH-LAD, S VG-PDA, SVG-D1 03/2013 Deficiency and other anemia (20 sources) Anemia; 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: [Anemia, unspecified] 11-19-2019 Episodic Diabetes mellitus with complications (20 sources) Type 2 diabetes mellitus; 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: [Type 2 diabetes mellitus with diabetic polyneuropathy] Onset: 10-31-2024 Chronic Disorders of lipid metabolism (20 sources) Hyperlipidemia; 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: [Hyperlipidemia, unspecified] Chronic Esophageal disorders (20 sources) Gastroesophageal reflux disease; 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: [Gastro-esophageal reflux disease without esophagitis] 11-19-2019 Chronic Esophageal disorders (20 sources) Radiation esophagitis; 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] 06-28-2022 Episodic Essential hypertension (20 sources) Hypertensive disorder; 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: [Essential (primary) hypertension] Chronic Fever of unknown origin (15 sources) Fever; 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: [Fever, unspecified] 12-31-2022 Episodic Fluid and electrolyte disorders (2 sources) Hyperkalemia; 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: [Hyperkalemia] 03-04-2025 Episodic Genitourinary symptoms and ill-defined conditions (20 sources) Scalding pain on urination ; 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: [Dysuria] Episodic Immunizations and screening for infectious disease (20 sources) Infectious disease carrier; 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: [Carrier of infectious disease, unspecified] Episodic Influenza (15 sources) Influenza due to Influenza A virus; 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: [Influenza due to other identified influenza virus with other respiratory manifestations] 12-31-2022 Episodic Malaise and fatigue (15 sources) Asthenia; 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: [Weakness] 12-31-2022 Episodic Nutritional deficiencies (20 sources) Undernutrition; 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: [Unspecified protein-calorie malnutrition] Chronic Osteoarthritis (5 sources) Osteoarthritis; 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: [Osteoarthrosis, unspecified whether generalized or localized, lower leg] Onset: 04-14-2014 04-14-2014 Chronic Other aftercare (2 sources) Long-term current use of anticoagulant; 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] 03-04-2025 Episodic Other circulatory disease (1 source) Other specified peripheral vascular diseases; 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: [Other specified peripheral vascular diseases] Onset: 07-07-2024 Chronic Other diseases of veins and lymphatics (20 sources) Peripheral venous insufficiency; 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: [Venous insufficiency (chronic) (peripheral)] 04-28-2020 Episodic Other diseases of veins and lymphatics (20 sources) Venous insufficiency (chronic) (peripheral); 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: [Venous (peripheral) insufficiency, unspecified] Episodic Other hematologic conditions (5 sources) Increased serum protein level; 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: [Abnormality of plasma protein, unspecified] 11-12-2023 Episodic Comment on above: M spike on 11/06/2023 is negative, free kappa 100, free lambda 61, free kappa lambda ratio 1.63 Other hematologic conditions (2 sources) Abnormality of plasma protein, unspecified; 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: [Other nonspecific findings on examination of blood] 10-18-2023 Episodic Other injuries and conditions due to external causes (20 sources) Delayed healing of wound; 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: [Other injury of unspecified body region, subsequent encounter] 05-22-2020 Episodic Other lower respiratory disease (20 sources) Dyspnea; 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: [Shortness of breath] 01-06-2021 Episodic Other lower respiratory disease (20 sources) Cough; 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: [Acute cough] Episodic Other lower respiratory disease (20 sources) Lung mass; 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: [Other nonspecific abnormal finding of lung field] 04-14-2022 Episodic Other lower respiratory disease (9 sources) Other nonspecific abnormal finding of lung field; 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: [Swelling, mass, or lump in chest] Episodic Other lower respiratory disease (9 sources) Shortness of breath; 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: [Shortness of breath] 10-09-2022 Episodic Other lower respiratory disease (10 sources) Dyspnea on exertion; 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: [Other forms of dyspnea] 07-25-2023 Episodic Other lower respiratory disease (5 sources) Nodule of lung; 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: [Solitary pulmonary nodule] 10-18-2023 Episodic Comment on above: CT on 10/12/2023 show s new R lower lobe nodule, not active on PET/CT. Other lower respiratory disease (1 source) Cough; 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: [Acute cough] 04-05-2022 Episodic Other lower respiratory disease (1 source) Other forms of dyspnea; 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: [Other forms of dyspnea] Onset: 10-08-2024 Episodic Other lower respiratory disease (8 sources) Hypoxia; 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: [Hypoxemia] 10-23-2024 Episodic Other lower respiratory disease (1 source) History of chronic obstructive airway disease; 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: [Personal history of other diseases of the respiratory system] 03-04-2025 Episodic Other nutritional; endocrine; and metabolic disorders (16 sources) H/O: diabetes mellitus; 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: [Personal history of other endocrine, nutritional and metabolic disease] 12-31-2022 Episodic Other nutritional; endocrine; and metabolic disorders (2 sources) Body mass index 25-29 - overweight; 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: [Overweight] 03-04-2025 Episodic Other screening for suspected conditions (not mental disorders or infectious disease) (2 sources) Raised cardiac enzyme or marker; 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: [Other specified abnormal findings of blood chemistry] 03-04-2025 Episodic Peripheral and visceral atherosclerosis (20 sources) Peripheral vascular disease; 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: [Peripheral vascular disease, unspecified] Chronic Pleurisy; pneumothorax; pulmonary collapse (2 sources) Pleural effusion; 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: [Pleural effusion, not elsewhere classified] 03-04-2025 Episodic Residual codes; unclassified (20 sources) Edema of lower extremity; 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: [Localized edema] 05-22-2020 Episodic Residual codes; unclassified (20 sources) Localized edema; 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: [Localized edema] 12-21-2021 Episodic Residual codes; unclassified (20 sources) Localized edema; 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: [Edema] Episodic Substance-related disorders (20 sources) Tobacco dependence in remission; 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, cigarettes, in remission] Chronic Unclassified (1 source) Acute cough; 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: [Acute cough] Onset: 04-05-2022 Urinary tract infections (20 sources) Urinary tract infectious disease; 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: [Urinary tract infection, site not specified] 11-19-2019 Episodic Past or Other Problems Problem Classification Problem Date Documented Da te Episodic/Chronic Coronary atherosclerosis and other heart disease (20 sources) Aortocoronary bypass graft present; 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: [Presence of aortocoronary bypass graft] Onset: 08-20-2012 Episodic Comment on above: CABG x 3 APPIAH-LAD, S VG-PDA, SVG-D1 03/2013 Open wounds of extremities (1 source) Unspecified open wound, right foot, initial encounter; 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: [Unspecified open wound, right foot, initial encounter] Onset: 07-30-2024 Episodic Other lower respiratory disease (3 sources) Solitary pulmonary nodule; 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: [Solitary pulmonary nodule] Onset: 02-04-2024 10-18-2023 Episodic Results Test Name Value Interpretation Reference Range Facility Absolute lymphocyte countOrd ered By: Chris Ochoa on 03-04-2025 Lymphocytes Auto (Unsp spec) [#/Vol] 0.77 10*3/uL Low 0.83-4.51 [facility] Absolute neutrophil countOrd ered By: Chris Ochoa on 03-04-2025 Neutrophils (Bld) [#/Vol] 6.0 10*3/uL 2.0-7.7 [facility] Anion gap in Serum or Plasma Ordered By: Chris Ochoa on 03-04-2025 Anion gap [Moles/Vol] 8 mmol/L 5-15 [facility] Automated lymphocyte count a s percentage of total leukocytesOrdered By: Chris Ochoa on 03-04-2025 Lymphocytes/100 WBC Auto (Unsp spec) 10.1 % Low 19-41 [facility] BUN/creatinine ratioOrdered By: Chris Ochoa on 03-04-2025 Urea nitrogen/Creatinine [Mass ratio] 19.7 mg/mg 10-20 [facility] Basophil percentageOrdered B y: Chris Ochoa on 03-04-2025 Basophils/100 WBC (Bld) 0.4 % 0-1 [facility] Bilirubin Test strip Ql (U)O rdered By: Nicola Madison on 03-04-2025 Bilirubin Ql (U) Negative Negative [facility] Carbon dioxide, total [Moles /volume] in Central venous bloodOrdered By: Chris Ochoa on 03-04-2025 CO2 [Moles/Vol] 28.6 mmol/L 21.0-32.0 [facility] Chloride assayOrdered By: Chino Ochoa on 03-04-2025 Chloride [Moles/Vol] 102 mmol/L 98-108 [facility] Eosinophil percentageOrdered By: Chris Ochoa on 03-04-2025 Eosinophils/100 WBC (Bld) 1.6 % 0-5 [facility] Erythrocyte distribution wid th ratioOrdered By: Chris Ocoha on 03-04-2025 Erythrocyte distribution width (RBC) [Ratio] 16.5 % High 11.6-14.6 [facility] Erythrocyte distribution wid th standard deviationOrdered By: Chris Ochoa on 03-04-2025 Erythrocyte distribution width (RBC) [Ratio] 54.2 fl High 35.1-43.9 [facility] Glomerular filtration rate ( GFR) estimation/1.73 sq m using serum, plasma, or whole bOrdered By: Chris Ochoa on 03-04-2025 GFR/1.73 sq M.predicted among non-blacks MDRD (S/P/Bld) [Vol rate/Area] 36 mL/min/{1.73_m2} Low >60 [facility] Comment on above: mL/min/1.73m2 CKD-EP I Creatinine Equation (2020) Hematocrit Auto (Bld) [Volum e fraction]Ordered By: Chris Ochoa on 03-04-2025 Hematocrit (Bld) [Volume fraction] 33.4 % Low 40-54 [facility] Hemoglobin measurementOrdere d By: Chris Ochoa on 03-04-2025 Hemoglobin (Bld) [Mass/Vol] 10.1 g/dL Low 13.0-16.5 [facility] Immature granulocytes/100 WB C Auto (Bld)Ordered By: Chris Ochoa on 03-04-2025 Immature granulocytes/100 WBC (Bld) 0.700 % 0.0-0.9 [facility] Comment on above: IG% - Immature Granu locytes (promyelocytes, myelocytes and metamyelocytes) > 1% indicates that a LEFT SHIFT is Present. Ketones Test strip Ql (U)Ord ered By: Nicola Madison on 03-04-2025 Ketones Ql (U) Negative Negative [facility] MCV (mean corpuscular volume ) determinationOrdered By: Chris Ochoa on 03-04-2025 MCV (RBC) [Entitic vol] 89.3 fL 80-94 [facility] Mean corpuscular hemoglobin (MCH) determinationOrdered By: Chris Ochoa on 03-04-2025 MCH (RBC) [Entitic mass] 27.0 pg 27.0-32.0 [facility] Mean corpuscular hemoglobin concentration (MCHC) determinationOrdered By: Chris Ochoa on 03-04-2025 MCHC (RBC) [Mass/Vol] 30.2 g/dL Low 32-36 [facility] Mean platelet volume determi nationOrdered By: Chris Ochoa on 03-04-2025 Platelet mean volume (Bld) [Entitic vol] 10.2 fL 6.2-12.0 [facility] Microscopic analysis of urin e for red blood cells (RBC)Ordered By: Nicola Madison on 03-04-2025 Microscopic analysis of urine for red blood cells (RBC) 5-10 SEEN /hpf 0-5 [facility] Monocyte percentageOrdered B y: Chris Ochoa on 03-04-2025 Monocytes/100 WBC (Bld) 9.1 % 0-10 [facility] Mucus LM Ql (Urine sed)Order ed By: Nicola Madison on 03-04-2025 Mucus Ql (Urine sed) 0 SEEN /hpf [facility] Natriuretic peptide.B prohor girish N-Terminal [Mass/volume] in Serum or PlasmaOrdered By: Chris Ochoa on 03-04-2025 Natriuretic peptide.B prohormone N-Terminal [Mass/Vol] 3316 pg/mL High <1800 [facility] Comment on above: Heart Failure Unlike ly: < 300 pg/mLHeart Failure Likely< 50 Years: > 450 pg/mL50-75 Years: > 900 pg/mL>75 Years: > 1800 pg/mL Neutrophil percentageOrdered By: Chris Ochoa on 03-04-2025 Neutrophils/100 WBC (Bld) 78.1 % High 47-70 [facility] Nitrite Test strip Ql (U)Ord ered By: Nicola Madison on 03-04-2025 Nitrite Ql (U) Positive High Negative [facility] Nucleated red blood cell per centageOrdered By: Chris Ochoa on 03-04-2025 Nucleated RBC/100 WBC (Bld) [Ratio] 0 % 0-5 [facility] Platelet countOrdered By: Chino Ochoa on 03-04-2025 Platelets (Bld) [#/Vol] 189 10*3/uL 150-450 [facility] Potassium measurement (mass/ volume)Ordered By: Chris Ochoa on 03-04-2025 Potassium (Unsp spec) [Mass/Vol] 5.2 mmol/L High 3.3-5.1 [facility] Protein Test strip Ql (U)Ord ered By: Nicola Madison on 03-04-2025 Protein Ql (U) 100 mg/dl High Negative [facility] RBC Auto (Bld) [#/Vol]Ordere d By: Chris Ochoa on 03-04-2025 RBC (Bld) [#/Vol] 3.74 10*6/uL Low 4.6-6.2 [facility] Serum creatinine measurement (mass/volume)Ordered By: Chris Ochoa on 03-04-2025 Creatinine [Mass/Vol] 1.86 mg/dL High 0.70-1.20 [facility] Serum glucose measurement (m ass/volume)Ordered By: Chris Ochoa on 03-04-2025 Glucose [Mass/Vol] 124 mg/dL High 70-99 [facility] Serum or plasma calcium [place] urement (mass/volume)Ordered By: Chris Ochoa on 03-04-2025 Calcium [Mass/Vol] 9.3 mg/dL 7.6-11.0 [facility] Serum or plasma urea nitroge n measurement (mass/volume)Ordered By: Chris Ochoa on 03-04-2025 Urea nitrogen [Mass/Vol] 37 mg/dL High 4-19 [facility] Sodium levelOrdered By: Chris Ochoa on 03-04-2025 Sodium [Moles/Vol] 138 mmol/L 133-145 [facility] Squamous epithelial cells de tection in urine sediment by light microscopyOrdered By: Nicola Madison on 03-04-2025 Epithelial cells.squamous LM Ql (Urine sed) 0 SEEN /hpf 0-5 [facility] Troponin T.cardiac [Mass/vol ume] in Serum or Plasma by High sensitivity methodOrdered By: Chris Ochoa on 03-04-2025 Troponin T.cardiac High sensitivity method [Mass/Vol] 42 ng/L High <22 [facility] Troponin T.cardiac High sensitivity method [Mass/Vol] 45 ng/L High <22 [facility] Troponin T.cardiac High sensitivity method [Mass/Vol] 44 ng/L High <22 [facility] Urine clarityOrdered By: Jacob Madison on 03-04-2025 Clarity (U) Cloudy Clear [facility] Urine color determinationOrd ered By: Nicola Madison on 03-04-2025 Color (U) Yellow Yellow [facility] Urine glucose detectionOrder ed By: Nicola Madison on 03-04-2025 Glucose Ql (U) Normal mg/dl Normal [facility] Urine leukocyte esterase det ection by dipstickOrdered By: Nicola Madison on 03-04-2025 Leukocyte esterase Test strip Ql (U) 500 /ul High Negative [facility] Urine pHOrdered By: Nicola stack on 03-04-2025 pH (U) 6.5 [pH] 5.0 - 8.0 [facility] Urine sediment bacteria coun t by microscopy (number/high power field)Ordered By: Nicola Madison on 03-04-2025 Bacteria LM.HPF (Urine sed) [#/Area] 2 /[HPF] None Seen [facility] Urine specific gravity measu rementOrdered By: Nicola Madison on 03-04-2025 Specific gravity (U) [Rel density] 1.010 1.002-1.030 [facility] Urine urobilinogen measureme ntOrdered By: Nicola Madison on 03-04-2025 Urobilinogen Ql (U) Normal mg/dl Normal [facility] White blood cell (WBC) count Ordered By: Chris Ochoa on 03-04-2025 WBC (Bld) [#/Vol] 7.6 10*3/uL 4.4-11.0 [facility] White blood cell countOrdere d By: Nicola Madison on 03-04-2025 White blood cell count >100 SEEN /hpf 0-5 [facility] Absolute lymphocyte countOrd ered By: Russ Zamora on 11-06-2024 Lymphocytes Auto (Unsp spec) [#/Vol] 0.82 10*3/uL Low 0.83-4.51 [facility] Absolute neutrophil countOrd ered By: Russ Zamora on 11-06-2024 Neutrophils (Bld) [#/Vol] 8.1 10*3/uL High 2.0-7.7 [facility] Anion gap in Serum or Plasma Ordered By: Russ Zamora on 11-06-2024 Anion gap [Moles/Vol] 10 mmol/L 5-15 [facility] Automated lymphocyte count a s percentage of total leukocytesOrdered By: Russ Zamora on 11-06-2024 Lymphocytes/100 WBC Auto (Unsp spec) 8.1 % Low 19-41 [facility] BUN/creatinine ratioOrdered By: Russ Zamora on 11-06-2024 Urea nitrogen/Creatinine [Mass ratio] 19.3 mg/mg 10- [facility] Basophil percentageOrdered B y: Russ Zamora on 11-06-2024 Basophils/100 WBC (Bld) 0.3 % 0-1 [facility] Bilirubin, totalOrdered By: Russ Zamora on 11-06-2024 Bilirubin [Mass/Vol] 0.46 mg/dL 0.00-1.30 [facility] CBC W/Diff, Automatedon 10-19-2024 Absolute Lymph 0.82 X10 3/uL Low 0.83-4.51 [facility] Comment on above: Performed By: #### L 100.0100, L500.4050, L504.2610 #### [facility] [address] [place], [address] Absolute Neut 8.1 X10 3/uL High 2.0-7.7 [facility] Comment on above: Performed By: #### L 100.0100, L500.4050, [id number] #### [facility] [address] [place], [address] Basophils/100 WBC (Bld) 0.3 % Normal 0-1 [facility] Comment on above: Performed By: #### L 100.0100, L500.4050, [id number] #### [facility] [address] [place], [address] Eosinophils/100 WBC (Bld) 1.7 % Normal 0-5 [facility] Comment on above: Performed By: #### L 100.0100, L500.4050, [id number] #### [facility] [address] [place], [address] Erythrocyte distribution width (RBC) [Ratio] 16.8 % High 11.6-14.6 [facility] Comment on above: Performed By: #### L 100.0100, L500.4050, [id number] #### [facility] [address] [place], [address] Hematocrit (Bld) [Volume fraction] 34.2 % Low 40-54 [facility] Comment on above: Performed By: #### L 100.0100, L500.4050, [id number] #### [facility] [address] [place], [address] Hemoglobin (Bld) [Mass/Vol] 10.7 g/dL Low 13.0-16.5 [facility] Comment on above: Performed By: #### L 100.0100, L500.4050, [id number] #### [facility] [address] [place], [address] IG% 0.500 Normal 0.0-0.9 [facility] Comment on above: Result Comment: IG% - Immature Granulocytes (promyelocytes, myelocytes and metamyelocytes) > 1% indicates that a LEFT SHIFT is Present. Performed By: #### L 100.0100, L500.4050, [id number] #### [facility] [address] [place], [address] Lymphocytes/100 WBC (Bld) 8.1 % Low 19-41 [facility] Comment on above: Performed By: #### L 100.0100, L500.4050, [id number] #### [facility] [address] [place], [address] MCH (RBC) [Entitic mass] 27.4 pg Normal 27.0-32.0 [facility] Comment on above: Performed By: #### L 100.0100, L500.4050, [id number] #### [facility] [address] [place], [address] MCHC (RBC) [Mass/Vol] 31.3 g/dL Low 32-36 [facility] Comment on above: Performed By: #### L 100.0100, L500.4050, [id number] #### [facility] [address] [place], [address] MCV (RBC) [Entitic vol] 87.5 fL Normal 80-94 [facility] Comment on above: Performed By: #### L 100.0100, L500.4050, [id number] #### [facility] [address] [place], [address] Monocytes/100 WBC (Bld) 8.8 % Normal 0-10 [facility] Comment on above: Performed By: #### L 100.0100, L500.4050, [id number] #### [facility] [address] [place], [address] Neutrophils/100 WBC (Bld) 80.6 % High 47-70 [facility] Comment on above: Performed By: #### L 100.0100, L500.4050, [id number] #### [facility] [address] [place], [address] Nucleated RBC (Bld) [#/Vol] 0 10*3/uL Normal 0-5 [facility] Comment on above: Performed By: #### L 100.0100, L500.4050, [id number] #### [facility] [address] [place], [address] Platelet mean volume (Bld) [Entitic vol] 10.4 fL Normal 6.2-12.0 [facility] Comment on above: Performed By: #### L 100.0100, L500.4050, [id number] #### [facility] [address] [place], [address] Platelets (Bld) [#/Vol] 212 10*3/uL Normal 150-450 [facility] Comment on above: Performed By: #### L 100.0100, L500.4050, [id number] #### [facility] [address] [place], [address] RBC (Bld) [#/Vol] 3.91 10*6/uL Low 4.6-6.2 [facility] Comment on above: Performed By: #### L 100.0100, L500.4050, [id number] #### [facility] [address] [place], [address] RDW SD 53.5 fl High 35.1-43.9 [facility] Comment on above: Performed By: #### L 100.0100, L500.4050, [id number] #### [facility] [address] [place], [address] WBC (Bld) [#/Vol] 10.1 10*3/uL Normal 4.4-11.0 [facility] Comment on above: Performed By: #### L 100.0100, L500.4050, [id number] #### [facility] [address] [place], [address] Carbon dioxide, total [Moles /volume] in Central venous bloodOrdered By: Russ Zamora on 11-06-2024 CO2 [Moles/Vol] 25.2 mmol/L 21.0-32.0 [facility] Chloride assayOrdered By: Flores Zamora on 11-06-2024 Chloride [Moles/Vol] 105 mmol/L 98-108 [facility] Comprehensive Metabolic Prof ilon 11-06-2024 Albumin [Mass/Vol] 3.8 g/dL Normal 3.4-4.8 [facility] Comment on above: Performed By: #### L 100.0100, L500.4050, [id number] #### [facility] [address] [place], [address] Albumin/Globulin [Mass ratio] 0.9 {ratio} Normal 0.9-2.4 [facility] Comment on above: Performed By: #### L 100.0100, L500.4050, [id number] #### [facility] [address] [place], [address] ALK PHOS 72 U/L Normal 40-129 [facility] Comment on above: Performed By: #### L 100.0100, L500.4050, [id number] #### [facility] [address] [place], [address] ALT [Catalytic activity/Vol] 10 U/L Normal <=46 [facility] Comment on above: Performed By: #### L 100.0100, L500.4050, [id number] #### [facility] [address] [place], [address] AST [Catalytic activity/Vol] 16 U/L Normal <=37 [facility] Comment on above: Performed By: #### L 100.0100, L500.4050, [id number] #### [facility] [address] [place], [address] Bilirubin [Mass/Vol] 0.46 mg/dL Normal 0.00-1.30 [facility] Comment on above: Performed By: #### L 100.0100, L500.4050, [id number] #### [facility] [address] [place], [address] BUN/CRE 19.3 RATIO Normal 10-20 [facility] Comment on above: Performed By: #### L 100.0100, L500.4050, [id number] #### [facility] [address] [place], [address] Calcium [Mass/Vol] 9.1 mg/dL Normal 7.6-11.0 [facility] Comment on above: Performed By: #### L 100.0100, L500.4050, [id number] #### [facility] [address] [place], [address] Chloride [Moles/Vol] 105 mmol/L Normal 98-108 [facility] Comment on above: Performed By: #### L 100.0100, L500.4050, [id number] #### [facility] [address] [place], [address] CO2 [Moles/Vol] 25.2 mmol/L Normal 21.0-32.0 [facility] Comment on above: Performed By: #### L 100.0100, L500.4050, [id number] #### [facility] [address] [place], [address] Creatinine [Mass/Vol] 1.87 mg/dL High 0.70-1.20 [facility] Comment on above: Performed By: #### L 100.0100, L500.4050, [id number] #### [facility] [address] [place], [address] ECRCL 32.00 ml/min Low 50-250 [facility] Comment on above: Performed By: #### L 100.0100, L500.4050, [id number] #### [facility] [address] [place], [address] GAP 10 Normal 5-15 [facility] Comment on above: Performed By: #### L 100.0100, L500.4050, [id number] #### [facility] [address] [place], [address] GFR/1.73 sq M.predicted among non-blacks MDRD (S/P/Bld) [Vol rate/Area] 36 mL/min/{1.73_m2} Low >60 [facility] Comment on above: Result Comment: mL/m in/1.73m2 CKD-EPI Creatinine Equation (2020) Performed By: #### L 100.0100, L500.4050, [id number] #### [facility] [address] [place], [address] Globulin (S) [Mass/Vol] 4.1 g/dL Normal 2.2-4.2 [facility] Comment on above: Performed By: #### L 100.0100, L500.4050, [id number] #### [facility] [address] [place], [address] Glucose [Mass/Vol] 132 mg/dL High 70-99 [facility] Comment on above: Performed By: #### L 100.0100, L500.4050, [id number] #### [facility] [address] [place], [address] Potassium [Moles/Vol] 4.8 mmol/L Normal 3.3-5.1 [facility] Comment on above: Performed By: #### L 100.0100, L500.4050, [id number] #### [facility] [address] [place], [address] Sodium [Moles/Vol] 140 mmol/L Normal 133-145 [facility] Comment on above: Performed By: #### L 100.0100, L500.4050, [id number] #### [facility] [address] [place], [address] T PROT 7.9 g/dL Normal 5.9-8.4 [facility] Comment on above: Performed By: #### L 100.0100, L500.4050, [id number] #### [facility] [address] [place], [address] Urea nitrogen [Mass/Vol] 36 mg/dL High 4-19 [facility] Comment on above: Performed By: #### L 100.0100, L500.4050, [id number] #### [facility] [place], [address] Eosinophil percentageOrdered By: Russ Zamora on 11-06-2024 Eosinophils/100 WBC (Bld) 1.7 % 0-5 [facility] Erythrocyte distribution wid th ratioOrdered By: Russ Zamora on 11-06-2024 Erythrocyte distribution width (RBC) [Ratio] 16.8 % High 11.6-14.6 [facility] Erythrocyte distribution wid th standard deviationOrdered By: Russ Zamora on 11-06-2024 Erythrocyte distribution width (RBC) [Entitic vol] 53.5 fL High 35.1-43.9 [facility] Erythrocyte distribution width (RBC) [Ratio] 53.5 fl High 35.1-43.9 [facility] Estimation of creatinine rowdy aranceOrdered By: Russ Zamora on 11-06-2024 Estimated Creatinine Clearance Calc 32.00 ml/min Low 50-250 [facility] GFR/1.73 sq M.predicted kaylyn g non-blacks MDRD (S/P/Bld) [Vol rate/Area]Ordered By: Russ Zamora on 11-06-2024 Estimated GFR (MDRD) Non-Af Amer 36 Low >60 [facility] Comment on above: mL/min/1.73m2 CKD-EP I Creatinine Equation (2020) Glomerular filtration rate ( GFR) estimation/1.73 sq m using serum, plasma, or whole bOrdered By: Russ Zamora on 11-06-2024 GFR/1.73 sq M.predicted among non-blacks MDRD (S/P/Bld) [Vol rate/Area] 36 mL/min/{1.73_m2} Low >60 [facility] Comment on above: mL/min/1.73m2 CKD-EP I Creatinine Equation (2020) Hematocrit Auto (Bld) [Volum e fraction]Ordered By: Russ Zamora on 11-06-2024 Hematocrit (Bld) [Volume fraction] 34.2 % Low 40-54 [facility] Hemoglobin measurementOrdere d By: Russ Zamora on 11-06-2024 Hemoglobin (Bld) [Mass/Vol] 10.7 g/dL Low 13.0-16.5 [facility] Immature granulocytes/100 WB C Auto (Bld)Ordered By: Russ Zamora on 11-06-2024 Immature granulocytes/100 WBC (Bld) 0.500 % 0.0-0.9 [facility] Comment on above: IG% - Immature Granu locytes (promyelocytes, myelocytes and metamyelocytes) > 1% indicates that a LEFT SHIFT is Present. LDHon 11-06-2024 LDH 135 U/L Normal 87-241 [facility] Comment on above: Order Comment: 1 Performed By: #### L 100.0100, L500.4050, L504.2610 #### [facility] [address] [place], [address] Laboratory - Chemistry and C hemistry - challengeOrdered By: Russ Zamora on 11-06-2024 AST [Catalytic activity/Vol] 16 U/L <38 [facility] Lactate dehydrogenase (LDH) measurementOrdered By: Russ Zamora on 11-06-2024 LDH [Catalytic activity/Vol] 135 U/L 87-241 [facility] Lymphocytes Auto (Unsp spec) [#/Vol]Ordered By: Russ Zamora on 11-06-2024 Lymphocytes (Bld) [#/Vol] 0.82 10*3/uL Low 0.83-4.5 1 [facility] Lymphocytes/100 WBC Auto (Un sp spec)Ordered By: Russ Zamora on 11-06-2024 Lymphocytes/100 WBC (Bld) 8.1 % Low 19-41 [facility] MCV (mean corpuscular volume ) determinationOrdered By: Russ Zamora on 11-06-2024 MCV (RBC) [Entitic vol] 87.5 fL 80-94 [facility] Mean corpuscular hemoglobin (MCH) determinationOrdered By: Russ Zamora on 11-06-2024 MCH (RBC) [Entitic mass] 27.4 pg 27.0-32.0 [facility] Mean corpuscular hemoglobin concentration (MCHC) determinationOrdered By: Russ Zamora on 11-06-2024 MCHC (RBC) [Mass/Vol] 31.3 g/dL Low 32-36 [facility] Mean platelet volume determi nationOrdered By: Russ Sera on 11-06-2024 Platelet mean volume (Bld) [Entitic vol] 10.4 fL 6.2-12.0 [facility] Monocyte percentageOrdered B y: Russ Kavitanegro on 11-06-2024 Monocytes/100 WBC (Bld) 8.8 % 0-10 [facility] Neutrophil percentageOrdered By: Russ Wallsnegro on 11-06-2024 Neutrophils/100 WBC (Bld) 80.6 % High 47-70 [facility] Nucleated red blood cell per centageOrdered By: Russ Wallsnegro on 11-06-2024 Nucleated RBC/100 WBC (Bld) [Ratio] 0 % 0-5 [facility] Oncology Visit Reporton 10-19 Oncology Visit Report [facility] [address] [place] [id number] OFFICE VISIT Date of Service: 11/06/24 1444 MR#: [id number] Acct: [id number] Name: PEDRO HILLMAN Rep #: [id number] : 1945 From: Russ Zamora MD Age/Sex: 79/M Location: [facility] Status: Signed HPI Subjective Date of Service 11/06/24 Chief Complaint F/u for NSCLC History of Present Illness 79y.o.man was found to have a R lung mass. CT chest 04/12/2022 showed RUL mass 3.5. He had CT guided bx on 04/28/2022, Pathology showed NSCLC favor squamous cell carcinoma. He was referred for further evaluation and management. PET/CT on 05/17/2022 showed ???Right upper lobe mass and right mediastinal (Station 4R) adenopathy suggestive of malignancy. MRI brain on 05/22/2022 showed no evidence of metastatic disease. 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 Considered Frail adult with R foot Ulcer, poor candidate for chemotherapy. He received Radiation to the R lung from 06/12/2022 to 07/09/22. He is on observation. CT on 10/12/2023 showed new nodular density in the anterior aspect of the right lower lobe. PET CT scan done on 11/06/2023 showed viable tumor in L adrenal gland. He is on observation. He had CT done and comes for follow-up. Has chronic cough. [facility] Medical History Other persistent atrial fibrillation New onset atrial flutter DIMA Wears hearing aid in both ears Former smoker Coronary artery disease Peripheral vascular occlusive disease BPH (benign prostatic hyperplasia) Chronic kidney disease, stage 3 Atherosclerosis of coronary artery of [place] heart without angina pectoris Hyperlipidemia Lower extremity edema Venous insufficiency Malnutrition Delayed wound healing Osteomyelitis of ankle, left, acute Ulcer of left lower extremity with fat layer exposed Type 2 diabetes mellitus with diabetic polyneuropathy Anemia GERD (gastroesophageal reflux disease) Hypertension Surgical History H/O aorto-femoral bypass ( 2009) History of transurethral resection of prostate Presence of aortocoronary bypass graft ( 03/2013) Family History Brother Diabetes Father , Age 72 stomach ulcers No problems noted. Mother , Age 71 pancreatitis No problems noted. Sister , hepatitis C No problems noted. Social History Smoking Status: Former smoker Tobacco: How many years used: 30 how long ago did patient quit smokin years Intake Vital Signs 05/05/24 13:28 11/06/24 14:45 Height 5 ft 7 in 5 ft 6 in Weight: 80.031 kg BMI 28.5 BP 116/55 L Blood Pressure Location Lt brachial Position Sitting Respiration 18 Pulse 55 L Pulse Source Monitor Temp 98.5 F Temperature Source Temporal Artery Pulse Oximetry (%) 95 Oxygen Delivery Method room air Intake Is patient in pain?: No Allergies ibuprofen Allergy (Severe, Verified 11/06/24 14:44) Facial swelling (angioedema) Medications ???Medication ???Instructions ???Recorded ???Confirmed ???Type insulin glargine 100 unit/mL 40 unit SQ DAILY 11/19/19 11/06/24 History subcutaneous solution multivitamin (Daily Multi-Vitamin 1 tab PO DAILY 06/28/20 11/06/24 History tablet) sitagliptin phosphate 50 mg tablet 50 mg PO DAILY 11/02/21 11/06/24 History (Januvia) pravastatin 20 mg tablet 20 mg PO DAILY 01/17/22 11/06/24 H istory cranberry 500 mg capsule 500 mg PO DAILY 07/25/23 11/06/24 History docusate sodium 100 mg capsule 100 mg PO DAILY PRN 07/25/2311/06 History (Colace) clopidogrel 75 mg tablet (Plavix) 75 mg PO DAILY #90 tabs 10/03/23 11/06/24 Rx lisinopril 2.5 mg tablet 2.5 mg PO DAILY #90 TABLETS 11/06/24 Rx metoprolol tartrate 25 mg tablet 12.5 mg (1/2 x 25 mg) PO BID #45 1 11/06/24 Rx TABLETS apixaban 5 mg tablet (Eliquis) 5 mg PO BID #180 TABLETS 08/04/24 11/06/24 Rx albuterol sulfate 90 mcg/actuation 2 puff inhalation Q4H PRN 11/06/24 Rx aerosol inhaler shortness of breath or wheezing #3 device guaifenesin 1,200 mg tablet, 1,200 mg PO Q12H #180 tabs 5 11/06/24 Rx extended release 12 hr umeclidinium 62.5 mcg-vilanterol 1 inh inhalation QDAY #60 ea 10/2311/06/24 Rx 25 mcg/actuation powdr for inhalation (Anoro Ellipta) Have you fallen in the past year?: No Central Venous Access Central Venous Access: No 10/30/2024 CT c/a reviewed. CT/CT Chest AND Abd W/ Contrast IMPRESSION: Increase in size of the right pleural effusion with volume (more content not included)... Normal [facility] Platelet countOrdered By: Flores Zamora on 11-06-2024 Platelets (Bld) [#/Vol] 212 10*3/uL 150-450 [facility] Potassium (Unsp spec) [Mass/ Vol]Ordered By: Russ Zamora on 11-06-2024 Potassium [Moles/Vol] 4.8 mmol/L 3.3-5.1 [facility] Potassium measurement (mass/ volume)Ordered By: Russ Zamora on 11-06-2024 Potassium (Unsp spec) [Mass/Vol] 4.8 mmol/L 3.3-5.1 [facility] RBC Auto (Bld) [#/Vol]Ordere d By: Russ Zamora on 11-06-2024 RBC (Bld) [#/Vol] 3.91 10*6/uL Low 4.6-6.2 [facility] Serum creatinine measurement (mass/volume)Ordered By: Russ Zamora on 11-06-2024 Creatinine [Mass/Vol] 1.87 mg/dL High 0.70-1.20 [facility] Serum globulin measurementOr dered By: Russ Zamora on 11-06-2024 Globulin (S) [Mass/Vol] 4.1 g/dL 2.2-4.2 [facility] Serum glucose measurement (m ass/volume)Ordered By: Russ Zamora on 11-06-2024 Glucose [Mass/Vol] 132 mg/dL High 70-99 [facility] Serum or plasma alanine ortiz otransferase (ALT) measurementOrdered By: Russ Zamora on 11-06-2024 ALT [Catalytic activity/Vol] 10 U/L <47 [facility] Serum or plasma albumin kingsley urement (mass/volume)Ordered By: Russ Zamora on 11-06-2024 Albumin [Mass/Vol] 3.8 g/dL 3.4-4.8 [facility] Serum or plasma albumin/glob ulin mass ratioOrdered By: Russ Zamora on 11-06-2024 Albumin/Globulin [Mass ratio] 0.9 {ratio} 0.9-2.4 [facility] Serum or plasma alkaline roosevelt sphatase measurementOrdered By: Russ Zamora on 11-06-2024 ALP [Catalytic activity/Vol] 72 U/L 40-129 [facility] Serum or plasma calcium kingsley urement (mass/volume)Ordered By: Russ Zamora on 11-06-2024 Calcium [Mass/Vol] 9.1 mg/dL 7.6-11.0 [facility] Serum or plasma urea nitroge n measurement (mass/volume)Ordered By: Russ Zamora on 11-06-2024 Urea nitrogen [Mass/Vol] 36 mg/dL High 4-19 [facility] Sodium levelOrdered By: Esau Zamora on 11-06-2024 Sodium [Moles/Vol] 140 mmol/L 133-145 [facility] Total proteinOrdered By: Frantz Zamora on 11-06-2024 Protein [Mass/Vol] 7.9 g/dL 5.9-8.4 [facility] White blood cell (WBC) count Ordered By: Russ Zamora on 11-06-2024 WBC (Bld) [#/Vol] 10.1 10*3/uL 4.4-11.0 [facility] CREATININE FINGERSTICKon Creatinine [Mass/Vol] 1.5 mg/dL High 0.70-1.30 [facility] Comment on above: Performed By: #### L 9100.0200 #### [facility] [address], [place], [id number] GFR/1.73 sq M.predicted among non-blacks MDRD (S/P/Bld) [Vol rate/Area] 48.0000 mL/min/{1.73_m2} Low >60 [facility] Comment on above: Performed By: #### L 9100.0200 #### [facility] [address] [place], [address] CT Chest AND Abd W/ Contrast on 10-30-2024 CT Chest AND Abd W/ Contrast [facility] Imaging Services [address] [place], [place] [address] CT Chest AND Abd W/ Contrast MR#: [id number] Acct: [id number] Name: PEDRO HILLMAN Rep #: [id number] : 1945 M 79 From: Kenyon cruz MD PCP: Dr. Tnoio Fajardo, DO Status: REG CLI Study: CT Chest AND Abd W/ Contrast Date of Exam: Exam# [id number] Ordering Dr: Russ Zamora MD PROCEDURE: CT CHEST AND ABD W/ CONTRAST REASON FOR EXAM: MONITOR -HX OF LUNG CA Prior radiation therapy. TECHNIQUE: Chest and abdomen CT with intravenous contrast. No oral contrast. CONTRAST: 98 mL of Isovue-300. COMPARISON: Comparison is made with prior study dated April 28, 2024. FINDINGS: CT CHEST: Hardware: None. Lymph nodes: No mediastinal, hilar, or axillary lymphadenopathy. Heart and Vasculature: Prior CABG. Calcification of the mitral valve annulus. Calcification of the coronary arteries. Atherosclerotic calcification of the aortic arch and descending thoracic aorta. Lungs and Airways: Since prior study, there has been progressive increase in the right pleural effusion with underlying compressive atelectasis at the right lung base. 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 The previously seen spiculated nodule in the right upper lobe has decreased in size although there has been an increase in the airspace disease. There is volume loss in the right hemithorax with shift of the heart and mediastinal structures to the right side. There is evidence of scarring in the left hemithorax with the blebs in the posterolateral aspect of the left lower lobe. Degenerative changes of the thoracic vertebrae. CT ABDOMEN: Liver: Unremarkable. Gallbladder: Multiple small gallstones are seen. Spleen: Unremarkable. Pancreas: Unremarkable. Adrenals: Unremarkable. Kidneys: Unremarkable. Bowel: Visualized loops of bowel in the upper abdomen are unremarkable. Lymph nodes: No suspicious lymph node enlargement at the upper abdomen. Vasculature: The patient is status post aorto bi-iliac grafting. There is dense calcification of the [place] iliac arteries bilaterally. Peritoneum / Retroperitoneum: No ascites or free air at the upper abdomen.. Small umbilical hernia containing fat. Bones: Degenerative changes of the spine. CT/CT Chest AND Abd W/ Contrast IMPRESSION: Increase in size of the right pleural effusion with volume loss in the right hemithorax with shift of the heart and mediastinal structures towards the right side of the midline. The previously seen spiculated mass in the right upper lobe has decreased in size although there is increased airspace disease in the right upper lobe most likely representing post radiation fibrosis/pneumonitis . One or more dose reduction techniques were used (e.g., Automated exposure control, adjustment of the mA and/or kV according to patient size, use of iterative reconstruction technique). Reading Location: [id number] CC: Dr. Russ Zamora MD; Dr. Tonio Fajardo DO Assistant Professor Of Radiology: Signed Normal [facility] Creatinine measurement at be dsideOrdered By: Russ Zamora on 10-30-2024 Creatinine [Mass/Vol] 1.5 mg/dL High 0.70-1.30 [facility] EGFROrdered By: Russ Zamora on 10-30-2024 GFR/1.73 sq M.predicted among non-blacks MDRD (S/P/Bld) [Vol rate/Area] 48.0000 mL/min/{1.73_m2} Low >60 [facility] Pulmonary Visit Reporton Pulmonary Visit Report [facility] [place] [address] [place] [address] OFFICE VISIT Date of Service: 10/23/24 MR#: [id number] Acct: [id number] Name: PEDRO HILLMAN Rep #: [id number] : 1945 Provider: FARHEEN Mart Age/Sex: 79/M Location: [facility] Status: Signed Assessment and Plan Assessment and Plan (1) COPD (chronic obstructive pulmonary disease): Status: Chronic Qualifiers: COPD type: emphysema Emphysema type: centrilobular Qualified Code(s): J43.2 - Centrilobular emphysema Plan: I do not believe he is in an exacerbation of COPD today. I am adding Mucinex 1200 mg twice daily to his maintenance medications. He is to continue the Anoro. No additional testing at this time. Follow-up in the office in 4 months to evaluate his response to Mucinex. No need for antibiotics or steroids today. 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 Frail adult with R foot Ulcer making him a poor candidate for chemotherapy. S/P Radiation therapy to R lung and mediastinum from 06/12/2022 to 07/09/2022. On observation. Comes for follow up. CT on 04/10/2023 shows stable RUL lung mass. CT 10/12/2023 reviewed, shows new R LL nodule. Labs reviewed. PET/CT 11/06/2023 reviewed, newly enhancing nodule in right hemithorax does not fulfill criteria for viable cancer, viable tumor in left adrenal gland. CT on 01/28/2024 reviewed, stable changes in lung and L adrenal gland. Comes for follow up. CT9.04/2024 shows stable changes in lungs and L adrenal gland. Liquid biopsy on 01/28/2024 was negative. Discussed findings. Clinically stable. Plan: Complicates exam, plan, care and prognosis. Serial imaging deferred to oncology. (3) Hypoxia: Status: Acute Plan: New. Likely chronic but recently clarified. He is compliant with supplemental oxygen use and benefiting from it. No additional testing at this time. Follow-up in the office in 4 months. He has been encouraged contact the office with any new or worsening symptoms in the meantime. Medications: New umeclidinium-vilante rol 62.5-25 mcg/actuation (Anoro Ellipta) 1 inh inhalation QDAY 60 ea 3RF guaifenesin ER 1,200 mg PO Q12H 180 tabs 6RF Refilled albuterol sulfate 90 mcg/actuation administer with spacer 2 puffs inhalation Q4H PRN 3 device 3RF shortness of breath or wheezing Plan Details Follow Up: 4 Months HPI 6 M FU Chief Complaint: Test results HPI Comments Details: This patient presents to the office today for follow-up of his COPD complicated by primary squamous cell carcinoma of the right upper lobe lung. He is in a wheelchair, on supplemental oxygen and accompanied today by his daughter. He has not recently been seen in the ED or urgent care for any respiratory illness. He has not required any antibiotics or prednisone for any breathing problems. He has a follow-up CT scan ord ered by oncology next week and will see them a few days later to discuss test results. Patient is compliant with use of Anoro 1 puff daily. He has not recently used albuterol rescue inhaler. He is compliant with supplemental oxygen. He is currently using 3 L/min. The patient reports shortness of breath that is worse with exertion. He has a cough that is productive of yang-colored sputum. He denies any hemoptysis. He denies any chest pain or palpitations. He does report occasional wheezing and chest congestion. He has not had any fever, chills or body aches. Test results personally viewed patient: Walking oximetry completed on October 16, 2023. The patient was able to ambulate a total of 329 feet over the course of 6 minutes. He did become hypoxic. It is recommended that he utilize 2 L/min of supplemental oxygen with ambulation. Intake Vital Signs 02/15/24 08:14 05/05/24 13:28 10/23/24 09:06 Height 5 ft 7 in 5 ft 7 in 5 ft 6 in Weight: 177 lb BMI 28.5 BP 128/56 H Blood Pressure Location Lt brachial Position Sitting Respiration 26 H Pulse 52 L Pulse Source Monitor Temp 97.4 F L Temperature Source Temporal Artery Pulse Oximetry (%) 97 Oxygen Delivery Method nasal canula Oxygen Flow Rate (L/min) 3 Intake Visit Reasons: 6 M FU Chief Complaint: F/u for NSCLC [employer] Required: No Accompanied by: Daughter In Law Is patient in pain?: No Allergies ibuprofen Allergy (Severe, Verified 10/23/24 14:15) Facial swelling (angioedema) Medications ???Medication ???Instructions ???Recorded ???Confirmed ???Type insulin glargine 100 unit/mL 40 unit SQ DAILY 11/19/19 10/23/24 History subcutaneous solution multivitamin (Daily Multi-Vitamin 1 tab PO DAILY 06/28/20 10/23/24 History tab (more content not included)... Normal [facility] Hemoglobin A1con 10-21-2024 HbA1c (Bld) [Mass fraction] 6.6 % Normal <=5.6 [facility] Comment on above: Performed By: #### L 9100.0200 #### [facility] [address] [place], [address] Hemoglobin A1c percentageOrd ered By: Tonio Fajardo on 10-20-2024 HbA1c (Bld) [Mass fraction] 6.6 % >5.7 [facility] 6 Minute Walk Teston 025 6 Minute Walk Test y [facility] [address] [place] [address] MR#: [id number] Acct: [id number] Name: PEDRO HILLMAN Rep #: [id number] : 1945 79 From: Tyrell Uriarte DO Referring Dr: Lorie Mart SENIOR BOILER OPERATOR SENIOR BOILER OPERATOR-C Status: REG CLI Location: PSN Date: Sex: M C PSN 6 Minute Walk Test 6 Minute Walk Test 6 Minute Walk Test: 6 Minute Walk Test PSN:6-Minute Walk Test Start: 10/16/24 13:24 Freq: Status: Active Protocol: [id number].[id number] Document 10/16/24 13:24 [facility] (Rec: 10/16/24 13:34 AM[facility] [id number]) 6 Minute Walk Test Date Performed 10/16/24 Time Performed 12:30 Height 5 ft 6 in Weight: 174 lb Weight in Pounds 174.[address]: Lorie Mart SENIOR BOILER OPERATOR Assistive device Walker used: Pre-test Oxygen Delivery Room Air Method Pulse Ox (%) 96 Pulse Rate (60-100 98 beats/min) Dyspnea Galilea Scale ( 0 0-10) 1st minute Oxygen Delivery Room Air Method Pulse Ox (%) 90 Pulse Rate (60-100 101 H beats/min) Dyspnea Galilea Scale ( 2 0-10) Number of Rests 1 Taken Reported Symptoms Increased Work of Breathing 2nd minute Oxygen Delivery Room Air Method Pulse Ox (%) 88 Pulse Rate (60-100 100 beats/min) Dyspnea Galilea Scale ( 3 0-10) Number of Rests 1 Taken Reported Symptoms Increased Work of Breathing 3rd minute Oxygen Delivery Room Air Method Pulse Ox (%) 86 Pulse Rate (60-100 107 H beats/min) Dyspnea Galilea Scale ( 4 0-10) Number of Rests 1 Taken Reported Symptoms Increased Work of Breathing 4th minute Oxygen Delivery Room Air Method Pulse Ox (%) 85 Pulse Rate (60-100 102 H beats/min) Dyspnea Galilea Scale ( 4 0-10) Number of Rests 0 Taken Reported Symptoms Increased Work of Breathing 5th minute Oxygen Delivery Room Air Method Pulse Ox (%) 83 Pulse Rate (60-100 103 H beats/min) Dyspnea Galilea Scale ( 4 0-10) Number of Rests 1 Taken Reported Symptoms Cyanotic,Increased Work of Breathing 6th minute Oxygen Flow Rate (L/ 2 min) (L/min) Oxygen Delivery Nasal Cannula Method Pulse Ox (%) 92 Pulse Rate (60-100 98 beats/min) Dyspnea Galilea Scale ( 4 0-10) Number of Rests 1 Taken Reported Symptoms Increased Work of Breathing Post-test Oxygen Delivery Room Air Method Pulse Ox (%) 94 Pulse Rate (60-100 96 beats/min) Dyspnea Galilea Scale ( 1 0-10) Full Laps Walked 5 Partial Lap, Number 34 of Tiles Walked Total Distance 329 Walked (ft) 10/16/24 13:28 Cardiopulmonary Services by Fabiola Elizabeth PATIENT PUSHED W/C FOR STABILITY DURING 6MWT. PATIENT WAS VERY HESITANT TO ADD OXYGEN THROUGHOUT TESTING FOR SPO2'S BELOW 88% BECAUSE EACH SHORT REST BREAK HIS SPO2 WOULD INCREASE TO BETWEEN 89- 92%. HE SAID HE DOES NOT WALK NEARLY THIS MUCH AT HOME AND DOES NOT REALLY WANT TO WEAR OXYGEN. AT 5 MIN, SPO2 WAS 83%, SO O2 WAS PLACED AT 2LPM WITH PATIENT APPROVAL, HE WORE FOR REMAINDER OF TESTING. HE AMBULATED A TOTAL OF 329FT. Initialized on 10/16/24 13:28 - END OF NOTE Interpretation Interpretation: The patient ambulated 329 feet over the course of 6 minutes beginning on room air with the use of a walker. Pretesting oxygen saturation was noted to be 96% on room air. With ambulation, the patient desaturated on several occasions requiring the initiation of supplemental oxygen at 2 L/min to maintain appropriate saturations. Recommendations Recommendations: 2 L/min of supplemental oxygen should be utilized with exertion. 10/17/24 100 Date Tyrell Uriarte DO CC: Date Dictated: 10/17/24 1004 Date Transcribed: 10/17/241003 Assistant Professor Of Radiology: Dr. Tyrell Uriarte DO Signed Normal [facility] Absolute neutrophil countOrd ered By: Leslie Arriaga on 09-25-2024 Neutrophils (Bld) [#/Vol] 6.7 10*3/uL 2.0-7.7 [facility] BNP (brain natriuretic pepti de measurement)Ordered By: Leslie Arriaga on 09-25-2024 Natriuretic peptide B (Bld) [Mass/Vol] 183.7 pg/mL High 0-100 [facility] BNP,B-Type NATRIURETIC PEPTI Adrienne 09-25-2024 Natriuretic peptide B (Bld) [Mass/Vol] 183.7 pg/mL High 0-100 [facility] Comment on above: Performed By: #### L 9100.0200 #### [facility] [address] [place], [address] Basic Metabolic Profile (BMP )on 09-25-2024 BUN/CRE 15.4 RATIO Normal 10-20 [facility] Comment on above: Performed By: #### L 9100.0200 #### [facility] [address] [place], [address] CA,Total 9.1 mg/dL Normal 8.5-10.1 [facility] Comment on above: Performed By: #### L 9100.0200 #### [facility] [address] [place], [address] Chloride [Moles/Vol] 105 mmol/L Normal 98-107 [facility] Comment on above: Performed By: #### L 9100.0200 #### [facility] [address] [place], [address] CO2 [Moles/Vol] 28.0 mmol/L Normal 21.0-32.0 [facility] Comment on above: Performed By: #### L 9100.0200 #### [facility] [address] [place], [address] Creatinine [Mass/Vol] 2.21 mg/dL High 0.70-1.30 [facility] Comment on above: Result Comment: The validity of the calculated GFR GFRAA in patients over 70 years has not been determined. Clinical correlation is essential. Performed By: #### L 9100.0200 #### [facility] [address] [place], [address] EST GFR - AA 37 mL/min Low >60 [facility] Comment on above: Result Comment: Afri can Turkish GFR Calc Performed By: #### L 9100.0200 #### [facility] [address] [place], [address] GAP 5 Normal 5-15 [facility] Comment on above: Performed By: #### L 9100.0200 #### [facility] [address] [place], [address] GFR/1.73 sq M.predicted among non-blacks MDRD (S/P/Bld) [Vol rate/Area] 31 mL/min/{1.73_m2} Low >60 [facility] Comment on above: Result Comment: Non- GFR Calc Performed By: #### L 9100.0200 #### [facility] [address] [place], [address] Glucose [Mass/Vol] 127 mg/dL High 74-106 [facility] Comment on above: Result Comment: Fast ing Glucose result greater than or equal to 126 mg/dL suggests DIABETES MELLITUS per A.D.A. criteria. Performed By: #### L 9100.0200 #### [facility] [address] [place], [address] Potassium [Moles/Vol] 4.3 mmol/L Normal 3.5-5.1 [facility] Comment on above: Performed By: #### L 9100.0200 #### [facility] [address] [place], [address] Sodium [Moles/Vol] 138 mmol/L Normal 136-145 [facility] Comment on above: Performed By: #### L 9100.0200 #### [facility] [address] [place], [address] Urea nitrogen [Mass/Vol] 34 mg/dL High 7-18 [facility] Comment on above: Performed By: #### L 9100.0200 #### [facility] [address] [place], [address] Basophil percentageOrdered B y: Leslie Arriaga on 09-25-2024 Basophils/100 WBC (Bld) 0.6 % 0-1 [facility] Blood urea nitrogen (BUN)/cr eatinine ratioOrdered By: Leslie Arriaga on 09-25-2024 Urea nitrogen/Creatinine [Mass ratio] 15.4 mg/mg 10-20 [facility] CBC W/Diff, Automatedon Absolute Lymph 0.91 X10 3/uL Normal 0.83-4.51 [facility] Comment on above: Performed By: #### L 9100.0200 #### [facility] [address] [place], [address] Absolute Neut 6.7 X10 3/uL Normal 2.0-7.7 [facility] Comment on above: Performed By: #### L 9100.0200 #### [facility] [address] [place], [address] Basophils/100 WBC (Bld) 0.6 % Normal 0-1 [facility] Comment on above: Performed By: #### L 9100.0200 #### [facility] [address] [place], [address] Eosinophils/100 WBC (Bld) 1.1 % Normal 0-5 [facility] Comment on above: Performed By: #### L 9100.0200 #### [facility] [address] [place], [address] Erythrocyte distribution width (RBC) [Ratio] 16.2 % High 11.6-14.6 [facility] Comment on above: Performed By: #### L 9100.0200 #### [facility] [address] [place], [address] Hematocrit (Bld) [Volume fraction] 36.0 % Low 40-54 [facility] Comment on above: Performed By: #### L 9100.0200 #### [facility] [address] [place], [address] Hemoglobin (Bld) [Mass/Vol] 11.1 g/dL Low 13.0-16.5 [facility] Comment on above: Performed By: #### L 9099.0200 #### [facility] [address] [place], [address] IG% 0.700 Normal 0.0-0.9 [facility] Comment on above: Result Comment: IG% - Immature Granulocytes (promyelocytes, myelocytes and metamyelocytes) > 1% indicates that a LEFT SHIFT is Present. Performed By: #### L 9099.0200 #### [facility] [address] [place], [address] Lymphocytes/100 WBC (Bld) 10.4 % Low 19-41 [facility] Comment on above: Performed By: #### L 91.0200 #### [facility] [address] [place], [address] MCH (RBC) [Entitic mass] 27.7 pg Normal 27.0-32.0 [facility] Comment on above: Performed By: #### L 9099.0200 #### [facility] [address] [place], [address] MCHC (RBC) [Mass/Vol] 30.8 g/dL Low 32-36 [facility] Comment on above: Performed By: #### L 9099.0200 #### [facility] [address] [place], [address] MCV (RBC) [Entitic vol] 89.8 fL Normal 80-94 [facility] Comment on above: Performed By: #### L 9099.0200 #### [facility] [address] [place], [address] Monocytes/100 WBC (Bld) 10.3 % High 0-10 [facility] Comment on above: Performed By: #### L 91.0200 #### [facility] [address] [place], [address] Neutrophils/100 WBC (Bld) 76.9 % High 47-70 [facility] Comment on above: Performed By: #### L 9099.0200 #### [facility] [address] [place], [address] Nucleated RBC (Bld) [#/Vol] 0 10*3/uL Normal 0-5 [facility] Comment on above: Performed By: #### L 9099.0200 #### [facility] [address] [place], [address] Platelet mean volume (Bld) [Entitic vol] 10.5 fL Normal 6.2-12.0 [facility] Comment on above: Performed By: #### L 9099.0200 #### [facility] [address] [place], [address] Platelets (Bld) [#/Vol] 256 10*3/uL Normal 150-450 [facility] Comment on above: Performed By: #### L 9099.0200 #### [facility] [address] [place], [address] RBC (Bld) [#/Vol] 4.01 10*6/uL Low 4.6-6.2 [facility] Comment on above: Performed By: #### L 9099.0200 #### [facility] [address] [place], [address] RDW SD 52.7 fl High 35.1-43.9 [facility] Comment on above: Performed By: #### L 9099.0200 #### [facility] [address] [place], [place], [address] WBC (Bld) [#/Vol] 8.7 10*3/uL Normal 4.4-11.0 [facility] Comment on above: Performed By: #### L 9100.0200 #### [facility] [address] [place], [place], [address] Carbon dioxide measurementOr dered By: Leslie Arriaga on 09-25-2024 CO2 [Moles/Vol] 28.0 mmol/L 21.0-32.0 [facility] Cardiology Visit Reporton Cardiology Visit Report [facility] [address] [place], [place] [address] OFFICE VISIT Date of Service: 09/25/24 MR#: [id number] Acct: [id number] Name: PEDRO HILLMAN Rep #: [id number] : 1945 Provider: RICKIE Trimble Age/Sex: 79/M Location[place] [facility] Status: Signed HPI HPI History of Present Illness Details: Mr. Hillman is a very pleasant 77-year-old , with a history of hypertension, hypercholesterolemia , diabetes, chronic kidney disease, peripheral vascular disease status post aortobifemoral bypass in 2009, who was referred to our office for follow-up care of a complex multivessel bypass surgery at the [place] on 04/01/13. At that time the patient had a 12 hour coronary bypass operation with a APPIAH to the LAD, an SVG to the diagonal, and SVG to the PDA of RCA. Apparently there were attempts to try and locate an bypass and obtuse marginal artery, but this was unsuccessful. Unfortunately resulted in excessive bleeding from the myocardium with subsequent hematoma formation. The patient had an intra-aortic balloon pump placed during the procedure, and then returned on 04/09/13 for mediastinal exploration, evacuation of hematoma, and chest closure. Postoperatively the patient had a complicated course requiring pressor agents and inotropes, he was extubated on 04/19/13 and unfortunately that same day developed a hypoxemia pulmonary arrest requiring CPR and emergent reintubation. Subsequent to that the patient developed renal failure and required CVVHD and then finally hemodialysis (stopped in 2014). In addition he was treated with antibiotics for his wound site infection, and underwent a tracheostomy as well. He is currently following with Dr. Zamora for non-small cell lung carcinoma. He did undergo radiation therapy to right lung and mediastinum from May to June 2022. He was recently diagnosed with Afib/flutter. He was stated on Eliquis. Echocardiogram demonstrated a preserved EF. He has been more SOB over the last week. His O2 at home has been lower. He has had readings in the 80s. He does sometimes have lightheadedness. He does not have any orthopnea. He does not have any chest pain. He does not have any palpitations. Intake Vital Signs 08/29/23 12:52 05/05/24 13:28 09/25/24 12:59 Height 5 ft 7 in 5 ft 7 in 5 ft 7 in Weight: 177 lb BMI 27.7 BP 120/75 Blood Pressure Location Lt brachial Position Sitting Respiration 18 Pulse 99 Pulse Source Monitor Pulse Oximetry (%) 90 Intake Visit Reasons: 1 Y [employer] Required: No Is patient in pain?: No Allergies ibuprofen Allergy (Severe, Verified 09/25/24 13:01) Facial swelling (angioedema) Medications ???Medication ???Instructions ???Recorded ???Confirmed ???Type insulin glargine 100 unit/mL 40 unit SQ DAILY 11/19/19 09/25/24 History subcutaneous solution multivitamin (Daily Multi-Vitamin 1 tab PO DAILY 06/28/20 09/25/24 History tablet) sitagliptin phosphate 50 mg tablet 50 mg PO DAILY 11/02/21 09/25/24 History (Januvia) pravastatin 20 mg tablet 20 mg PO DAILY 01/17/22 09/25/24 H istory cranberry 500 mg capsule 500 mg PO DAILY 07/25/23 09/25/24 History docusate sodium 100 mg capsule 100 mg PO DAILY PRN 07/25/2309/25 History (Colace) clopidogrel 75 mg tablet (Plavix) 75 mg PO DAILY #90 tabs 10/03/23 09/25/24 Rx albuterol sulfate 90 mcg/actuation 2 puff inhalation Q4H PRN 09/25/24 Rx aerosol inhaler shortness of breath or wheezing #3 device lisinopril 2.5 mg tablet 2.5 mg PO DAILY #90 TABLETS 09/25/24 Rx metoprolol tartrate 25 mg tablet 12.5 mg (1/2 x 25 mg) PO BID #45 1 09/25/24 Rx TABLETS apixaban 5 mg tablet (Eliquis) 5 mg PO BID #180 TABLETS 08/04/24 09/25/24 Rx Have you fallen in the past year?: No [facility] Medical History Other persistent atrial fibrillation New onset atrial flutter COVID Wears hearing aid in both ears Former smoker Coronary artery disease Peripheral vascular occlusive disease BPH (benign prostatic hyperplasia) Chronic kidney disease, stage 3 Atherosclerosis of coronary artery of [place] heart without angina pectoris Hyperlipidemia Lower extremity edema Venous insufficiency Malnutrition Delayed wound healing Osteomyelitis of ankle, left, acute Ulcer of left lower extremity with fat layer exposed Type 2 diabetes mellitus with diabetic polyneuropathy Anemia GERD (gastroesophageal reflux disease) Hypertension Surgical History H/O aorto-femoral bypass ( 2009) History of transurethral resection of prostate Presence of aortocoronary bypass graft ( 03/2013) Family History ... Normal [facility] Chest PA and Lateralon 09-25 Chest PA and L[address] [facility] Imaging Services [address] [place] [address] Chest PA and Lateral MR#: [id number] Acct: [id number] Name: PEDRO HILLMAN Rep #: [id number] : 1945 M 79 From: Tonio Hayes MD PCP: Dr. Tonio Fajardo, DO Status: REG CLI Study: Chest PA and Lateral Date of Exam: 09/25/24 Exam# [id number] Ordering Dr: Leslie Arriaga PA EXAM: XR Chest, 2 Views CLINICAL INDICATION: TECHNIQUE: Frontal and lateral views of the chest. COMPARISON: No relevant prior studies available. FINDINGS: LUNGS AND PLEURAL SPACES: Right pleural effusion. HEART: Cardiomegaly with pulmonary congestion and edema. Superimposed pneumonia cannot be excluded. MEDIASTINUM: Unremarkable. Normal mediastinal contour. BONES/JOINTS: Unremarkable. No acute fracture. RAD/Chest PA and Lateral IMPRESSION: 1. Cardiomegaly with pulmonary congestion and edema. Superimposed pneumonia cannot be excluded. 2. Right pleural effusion. Reading Location: [facility] CC: Dr. Tonio Fajardo, DO; RICKIE Kumari Assistant Professor Of Radiology: Signed Normal [facility] Chloride measurementOrdered By: Leslie Arriaga on 09-25-2024 Chloride [Moles/Vol] 105 mmol/L 98-107 [facility] Eosinophil percentageOrdered By: Leslie Arriaga on 09-25-2024 Eosinophils/100 WBC (Bld) 1.1 % 0-5 [facility] Erythrocyte distribution wid th ratioOrdered By: Leslie Arriaga on 09-25-2024 Erythrocyte distribution width (RBC) [Ratio] 16.2 % High 11.6-14.6 [facility] Erythrocyte distribution wid th standard deviationOrdered By: Leslie Arriaga on 09-25-2024 Erythrocyte distribution width (RBC) [Entitic vol] 52.7 fL High 35.1-43.9 [facility] Estimated glomerular filtrat ion rate (GFR) AmericanOrdered By: Leslie Arriaga on 09-25-2024 Estimated GFR (MDRD) Amer 37 mL/min Low >60 [facility] Comment on above: GFR Calc Glomerular filtration rate ( GFR) estimationOrdered By: Leslie Arriaga on 09-25-2024 Estimated GFR (MDRD) Non-Af Amer 31 mL/min Low >60 [facility] Comment on above: Non- GFR Calc Glucose measurementOrdered B y: Leslie Arriaga on 09-25-2024 Glucose [Mass/Vol] 127 mg/dL High 74-106 [facility] Comment on above: Fasting Glucose resu lt greater than or equal to 126 mg/dL suggests DIABETES MELLITUS per A.D.A. criteria. Hematocrit Auto (Bld) [Volum e fraction]Ordered By: Leslie Arriaga on 09-25-2024 Hematocrit (Bld) [Volume fraction] 36.0 % Low 40-54 [facility] Hemoglobin measurementOrdere d By: Leslie Arriaga on 09-25-2024 Hemoglobin (Bld) [Mass/Vol] 11.1 g/dL Low 13.0-16.5 [facility] Immature granulocytes/100 WB C Auto (Bld)Ordered By: Leslie Arriaga on 09-25-2024 Immature granulocytes/100 WBC (Bld) 0.700 % 0.0-0.9 [facility] Comment on above: IG% - Immature Granu locytes (promyelocytes, myelocytes and metamyelocytes) > 1% indicates that a LEFT SHIFT is Present. Lymphocytes Auto (Unsp spec) [#/Vol]Ordered By: Leslie Arriaga on 09-25-2024 Lymphocytes (Bld) [#/Vol] 0.91 10*3/uL 0.83-4.5 1 [facility] Lymphocytes/100 WBC Auto (Un sp spec)Ordered By: Leslie Arriaga on 09-25-2024 Lymphocytes/100 WBC (Bld) 10.4 % Low 19-41 [facility] MCV (mean corpuscular volume ) determinationOrdered By: Leslie Arriaga on 09-25-2024 MCV (RBC) [Entitic vol] 89.8 fL 80-94 [facility] Mean corpuscular hemoglobin (MCH) determinationOrdered By: Leslie Arriaga on 09-25-2024 MCH (RBC) [Entitic mass] 27.7 pg 27.0-32.0 [facility] Mean corpuscular hemoglobin concentration (MCHC) determinationOrdered By: Leslie Arriaga on 09-25-2024 MCHC (RBC) [Mass/Vol] 30.8 g/dL Low 32-36 [facility] Mean platelet volume determi nationOrdered By: Leslie Arriaga on 09-25-2024 Platelet mean volume (Bld) [Entitic vol] 10.5 fL 6.2-12.0 [facility] Monocyte percentageOrdered B y: Leslie Arriaga on 09-25-2024 Monocytes/100 WBC (Bld) 10.3 % High 0-10 [facility] Neutrophil percentageOrdered By: Leslie Arriaga on 09-25-2024 Neutrophils/100 WBC (Bld) 76.9 % High 47-70 [facility] Nucleated red blood cell per centageOrdered By: Leslie Arriaga on 09-25-2024 Nucleated RBC/100 WBC (Bld) [Ratio] 0 % 0-5 [facility] Platelet countOrdered By: Linsey Arriaga on 09-25-2024 Platelets (Bld) [#/Vol] 256 10*3/uL 150-450 [facility] Potassium measurementOrdered By: Leslie Arriaga on 09-25-2024 Potassium [Moles/Vol] 4.3 mmol/L 3.5-5.1 [facility] RBC Auto (Bld) [#/Vol]Ordere d By: Leslie Arriaga on 09-25-2024 RBC (Bld) [#/Vol] 4.01 10*6/uL Low 4.6-6.2 [facility] Serum anion gap measurementO rdered By: Leslie Arriaga on 09-25-2024 Anion gap [Moles/Vol] 5 mmol/L 5-15 [facility] Serum or plasma calcium [place] urement (mass/volume)Ordered By: Leslie Arriaga on 09-25-2024 Calcium [Mass/Vol] 9.1 mg/dL 8.5-10.1 [facility] Serum or plasma creatinine m easurement (mass/volume)Ordered By: Leslie Arriaga on 09-25-2024 Creatinine [Mass/Vol] 2.21 mg/dL High 0.70-1.30 [facility] Comment on above: The validity of the calculated GFR & GFRAA in patients over 70 years has not been determined. Clinical correlation is essential. Serum or plasma urea nitroge n measurement (mass/volume)Ordered By: Leslie Arriaga on 09-25-2024 Urea nitrogen [Mass/Vol] 34 mg/dL High 7-18 [facility] Sodium levelOrdered By: Brian Arriaga on 09-25-2024 Sodium [Moles/Vol] 138 mmol/L 136-145 [facility] White blood cell (WBC) count Ordered By: Leslie Arriaga on 09-25-2024 WBC (Bld) [#/Vol] 8.7 10*3/uL 4.4-11.0 [facility] Culture, Fungus 8482on 08-04 CUF TESTING PERFORMED AT [facility]. ORIGINAL REPORT ON FILE IN LAB CONTAINS ADDITIONAL TEST SITE INFORMATION. CUF A Positive Fungus Culture A Ann-Marie parapsilosis Amount Growth Growth Normal [facility] Comment on above: Performed By: #### L 100.0100, L500.4050, L504.2610 #### [facility] [address] [place], [place], [address] Culture, Anaerobic Any Sourc talat 07-09-2024 CUAN Prevotella and Porphyromonas species are generally SUSCEPTIBLE to Cefoxitin, Chloramphenicol, and Metronidazole and are usually RESISTANT to Penicillin. Prevotella oralis Beta Lactamase-Reportable Positive Normal [facility] Comment on above: Performed By: #### L 100.0100, L500.4050, L504.2610 #### [facility] [address] [place], [place], [address] Wound Cultureon 07-05-2024 WC Staphylococcus pseudintermediu Amount Growth 3+ Staphylococcus pseudintermediu: REACTION Doxycycline Islt LASHAWN <=0.5 Clindamycin Islt LASHAWN 0.25 S Clindamycin.induced Susc Islt NEG Erythromycin Islt LASHAWN <=0.25 S Gentamicin Islt LASHAWN <=0.5 S Linezolid Islt LASHAWN 1 S Oxacillin Susc Islt <=0.25 S Tetracycline Islt LASHAWN <=1 S TMP SMX Islt LASHAWN <=10 S Vancomycin Islt LASHAWN <=0.5 S Normal [facility] Comment on above: Performed By: #### L 100.0100, L500.4050, L504.2610 #### [facility] [address] [place], [address] Gram Stainon 07-04-2024 GS Positive Normal [facility] Comment on above: Performed By: #### L 100.0100, L500.4050, L504.2610 #### [facility] [address] [place], [address] Bacteria identified Anaer cx Nom (Unsp spec)Ordered By: Joaquim Suárez on 07-03-2024 Anaerobic Culture Prevotella oralis Abnormal [facility] Fungus identified Cx Nom (Un sp spec)Ordered By: Joaquim Suárez on 07-03-2024 Fungal Culture Ann-Marie parapsilosis Abnormal [facility] Gram stainOrdered By: Bladimir Suárez on 07-03-2024 Microscopic observation Gram stain Nom (Unsp spec) [facility] Routine wound cultureOrdered By: Joaquim Suárez on 07-03-2024 Wound Culture Staphylococcus pseudintermediu Abnormal [facility] Lower Ext Art Exam w/o Exerc soco 06-17-2024 Lower Ext Art Exam w/o Exercis [facility] [address] [place] [address] Lower Ext Art Exam w/o Exercis 06/17/24 1419 MR#: [id number] Acct: [id number] Name: PEDRO HILLMAN Rep #: [id number] : 1945 79 From: Angel Marcial MD Attending Dr: Dr. Joaquim Suárez, DPNancy Status: RE G CLI Ordering Dr: Joaquim Suárez DPM Date: 06/17/24 Location: CVS Sex: M C Admitted: Reason For Study: PVD Procedure A bilateral lower extremity continuous wave Doppler with analog waveform analysis,segmental pressures,and ankle brachial indexes without exercise. Left Segmental Pressures Left brachial= 142mmHg. Left posterior tibial artery = 173mmHg. Left dorsalis pedis artery = 137mmHg. Left digit = 82 mmHg. The left posterior tibial artery waveforms are triphasic. The left dorsalis pedis waveforms are triphasic. Right Segmental Pressures Right brachial= 147mmHg. Right posterior tibial artery = 157mmHg. Right dorsalis pedis artery = 147mmHg. Right digit = 105 mmHg. The right posterior tibial artery waveforms are triphasic. The right dorsalis pedis waveforms are triphasic. Indices The right ankle brachial index by the posterior tibial artery is 1.07. The right ankle brachial index by the dorsalis pedis is 1.00. The right digital-brachial index is 0.71. The left ankle brachial index by the posterior tibial artery is 1.18. The left ankle brachial index by the dorsalis pedis is 0.93. The left digital-brachial index is 0.56. VL/Lower Ext Art Exam w/o Exercis Interpretation Summary Triphasic Doppler waveforms are noted at ankle level bilaterally. Pulse-volume recordings appear diminished at digital level on the left, but satisfactory at all other levels bilaterally. Resting ankle-brachial indices are normal bilaterally. The right digital-brachial index is normal. The left digital-brachial index is mildly diminished. Arterial flow appears normal at ankle level bilaterally, and at digital level on the right. There is evidence of mild arterial occlusive disease at digital level on the left. Ordering Physician: Joaquim Suárez Referring Physician: Tonio Fajardo Performed By: Spike Dick, T 06/17/241937 Date Angel Marcial MD CC: DPNancy Suárez; Dr. Tonio Fajardo DO Date Dictated: 06/17/24 1419 Date Transcribed: 06/17/241937 Assistant Professor Of Radiology: Signed Normal [facility] Venous Duplex US - Hi Extre [facility] 06-17-2024 Venous Duplex US - Hi Extrem [facility] [address] [place] [address] Venous Duplex US - Hi Extrem 06/17/24 1349 MR#: [id number] Acct: [id number] Name: PEDRO HILLMAN Rep #: [id number] : 1945 79 From: Angel Marcial MD Attending Dr: Dr. Joaquim Suárez, DPM Status: RE G CLI Ordering Dr: Joaquim Suárez DPM Date: 06/17/24 Location: CVS Sex: M C Admitted: Reason For Study: BLE Pain RIGHT LEFT CFV is compressible, spontaneous, competent CFV is compressible, spontaneous, competent, and demonstrates pulsatile venous flow. and demonstrates pulsatile venous flow. FV is compressible, spontaneous, competent FV is compressible, spontaneous, competent and demonstrates pulsatile venous flow. and demonstrates pulsatile venous flow. POP V is compressible, spontaneous, POP V is compressible, spontaneous, competent competent and demonstrates pulsatile venous and demonstrates pulsatile venous flow. flow. T/P Trunk is compressible. T/P Trunk is compressible. PTV is compressible. PTV is compressible. LT PerV is compressible. RT PerV is compressible. SFJ is competent and measures 0.58 cm. SFJ is competent and measures 0.54 cm. Pt has HX of CABG. Unable to visualize GSV GSV proximal thigh measures 0.28 x 0.32 cm. from prox thigh to dist calf. Vessel appears GSV at knee measures 0.25 x 0.31 cm. to have been harvested. GSV above knee is competent. GSV below knee is INCOMPETENT for greater Lt SSV from junction to dist calf is DILATED than 0.5 seconds. and NONCOMPRESSIBLE with intraluminal echoes Pt has HX of CABG. A portion of GSV in the noted. PT has HX of SSV and findings are Rt thigh was unable to be visualized. consistent chemical ablation procedure. GSV dist calf appears PARTIALLY COMPRESSIBLE with bright intraluminal echoes noted. Finding is consistent with CHRONIC SVT. SSV at junction is competent and measures 0.29 cm with pulsatile flow noted. Procedure This is a venous duplex using B-mode, color flow and spectral Doppler. Exam performed in department. The exam was diagnostic. VL/Venous Duplex US - Hi Extrem Interpretation Summary Deep veins of the lower extremities are bilaterally patent and compressible segmentally. There is no evidence of deep vein thrombosis on either side. Valvular competence appears intact within the proximal deep venous systems bilaterally. A portion of the right great saphenous vein appears to be absent in the thigh. The remaining portion of the right great saphenous vein in the thigh is competent. The right great saphenous vein below the knee is incompetent and demonstrates chronic changes such as partial compressibility and intraluminal echogenicity. The left great saphenous vein appears to be absent. Sapheno-femoral junctions are competent bilaterally. The right small saphenous vein is patent and competent. The left small saphenous vein is non-compressible and demonstrates intraluminal echogenicity which may be consistent with a prior endovenous ablation procedure. Clinical correlation is advised. Pulsatile flow is noted in the deep venous system bilaterally, which may be indicative of elevated central venous pressure (i.e. congestive heart failure, pulmonary hypertension, etc.). Clinical correlation is advised. Ordering Physician: Joaquim Suárez Referring Physician: Tonio Fajardo Performed By: Spike Dick, T 06/17/242000 Date Angel Marcial MD CC: DPM Dr. Joaquim Suárez; Dr. Tonio Fajardo DO Date Dictated: 06/17/24 1349 Date Transcribed: 06/17/242000 Assistant Professor Of Radiology: Signed Normal [facility] CBC W/Diff, Automatedon 09-1 Absolute Lymph 0.94 X10 3/uL Normal 0.83-4.51 [facility] Comment on above: Performed By: #### L 100.0100, L500.4050, L504.2610 #### [facility] [address] [place], [address] Absolute Neut 5.7 X10 3/uL Normal 2.0-7.7 [facility] Comment on above: Performed By: #### L 100.0100, L500.4050, L504.2610 #### [facility] [address] [place], [address] Basophils/100 WBC (Bld) 0.6 % Normal 0-1 [facility] Comment on above: Performed By: #### L 100.0100, L500.4050, L504.2610 #### [facility] [address] [place], [address] Eosinophils/100 WBC (Bld) 2.5 % Normal 0-5 [facility] Comment on above: Performed By: #### L 100.0100, L500.4050, L504.2610 #### [facility] [address] [place], [address] Erythrocyte distribution width (RBC) [Ratio] 16.3 % High 11.6-14.6 [facility] Comment on above: Performed By: #### L 100.0100, L500.4050, L504.2610 #### [facility] [address] [place], [address] Hematocrit (Bld) [Volume fraction] 36.9 % Low 40-54 [facility] Comment on above: Performed By: #### L 100.0100, L500.4050, L504.2610 #### [facility] [address] [place], [address] Hemoglobin (Bld) [Mass/Vol] 11.3 g/dL Low 13.0-16.5 [facility] Comment on above: Performed By: #### L 100.0100, L500.4050, L504.2610 #### [facility] [address] [place], [address] IG% 1.400 High 0.0-0.9 [facility] Comment on above: Result Comment: IG% - Immature Granulocytes (promyelocytes, myelocytes and metamyelocytes) > 1% indicates that a LEFT SHIFT is Present. Performed By: #### L 100.0100, L500.4050, L504.2610 #### [facility] [address] [place], [address] Lymphocytes/100 WBC (Bld) 11.8 % Low 19-41 [facility] Comment on above: Performed By: #### L 100.0100, L500.4050, L504.2610 #### [facility] [address] [place], [address] MCH (RBC) [Entitic mass] 27.2 pg Normal 27.0-32.0 [facility] Comment on above: Performed By: #### L 100.0100, L500.4050, L504.2610 #### [facility] [address] [place], [address] MCHC (RBC) [Mass/Vol] 30.6 g/dL Low 32-36 [facility] Comment on above: Performed By: #### L 100.0100, L500.4050, L504.2610 #### [facility] [address] [place], [address] MCV (RBC) [Entitic vol] 88.7 fL Normal 80-94 [facility] Comment on above: Performed By: #### L 100.0100, L500.4050, L504.2610 #### [facility] [address] [place], [address] Monocytes/100 WBC (Bld) 11.6 % High 0-10 [facility] Comment on above: Performed By: #### L 100.0100, L500.4050, L504.2610 #### [facility] [address] [place], [address] Neutrophils/100 WBC (Bld) 72.1 % High 47-70 [facility] Comment on above: Performed By: #### L 100.0100, L500.4050, L504.2610 #### [facility] [address] [place], [address] Nucleated RBC (Bld) [#/Vol] 0 10*3/uL Normal 0-5 [facility] Comment on above: Performed By: #### L 100.0100, L500.4050, L504.2610 #### [facility] [address] [place], [address] Platelet mean volume (Bld) [Entitic vol] 9.9 fL Normal 6.2-12.0 [facility] Comment on above: Performed By: #### L 100.0100, L500.4050, L504.2610 #### [facility] [address] [place], [address] Platelets (Bld) [#/Vol] 222 10*3/uL Normal 150-450 [facility] Comment on above: Performed By: #### L 100.0100, L500.4050, L504.2610 #### [facility] [address] [place], [address] RBC (Bld) [#/Vol] 4.16 10*6/uL Low 4.6-6.2 [facility] Comment on above: Performed By: #### L 100.0100, L500.4050, L504.2610 #### [facility] [address] [place], [address] RDW SD 53.2 fl High 35.1-43.9 [facility] Comment on above: Performed By: #### L 100.0100, L500.4050, L504.2610 #### [facility] [address] [place], [address] WBC (Bld) [#/Vol] 8.0 10*3/uL Normal 4.4-11.0 [facility] Comment on above: Performed By: #### L 100.0100, L500.4050, L504.2610 #### [facility] [address] [place], [address] Comprehensive Metabolic Prof cton 05-05-2024 Albumin [Mass/Vol] 3.1 g/dL Low 3.2-5.0 [facility] Comment on above: Order Comment: 1 Performed By: #### L 100.0100, L500.4050, L504.2610 #### [facility] [address] [place], [address] Albumin/Globulin [Mass ratio] 0.6 {ratio} Low 0.9-2.4 [facility] Comment on above: Order Comment: 1 Performed By: #### L 100.0100, L500.4050, L504.2610 #### [facility] [address] [place], [address] ALK P 60 U/L Normal 45-117 [facility] Comment on above: Order Comment: 1 Performed By: #### L 100.0100, L500.4050, L504.2610 #### [facility] [address] [place], [address] ALT [Catalytic activity/Vol] 15 U/L Low 16-61 [facility] Comment on above: Order Comment: 1 Performed By: #### L 100.0100, L500.4050, L504.2610 #### [facility] [address] [place], [address] AST [Catalytic activity/Vol] 11 U/L Low 15-37 [facility] Comment on above: Order Comment: 1 Performed By: #### L 100.0100, L500.4050, L504.2610 #### [facility] [address] [place], [address] Bilirubin [Mass/Vol] 0.40 mg/dL Normal 0.20-1.00 [facility] Comment on above: Order Comment: 1 Result Comment: For patients on eltrombopag therapy, use of Dimension Cross TBIL is not recommended. Performed By: #### L 100.0100, L500.4050, L504.2610 #### [facility] [address] [place], [address] BUN/CRE 20.3 RATIO High 10-20 [facility] Comment on above: Order Comment: 1 Performed By: #### L 100.0100, L500.4050, L504.2610 #### [facility] [address] [place], [address] CA,Total 9.3 mg/dL Normal 8.5-10.1 [facility] Comment on above: Order Comment: 1 Performed By: #### L 100.0100, L500.4050, L504.2610 #### [facility] [address] [place], [address] Chloride [Moles/Vol] 104 mmol/L Normal 98-107 [facility] Comment on above: Order Comment: 1 Performed By: #### L 100.0100, L500.4050, L504.2610 #### [facility] [address] [place], [address] CO2 [Moles/Vol] 27.0 mmol/L Normal 21.0-32.0 [facility] Comment on above: Order Comment: 1 Performed By: #### L 100.0100, L500.4050, L504.2610 #### [facility] [address] [place], [address] Creatinine [Mass/Vol] 2.17 mg/dL High 0.70-1.30 [facility] Comment on above: Order Comment: 1 Result Comment: The validity of the calculated GFR GFRAA in patients over 70 years has not been determined. Clinical correlation is essential. Performed By: #### L 100.0100, L500.4050, L504.2610 #### [facility] [address] [place], [address] ECRCL 27.63 ml/min Normal [facility] Comment on above: Order Comment: 1 Performed By: #### L 100.0100, L500.4050, L504.2610 #### [facility] [address] [place], [address] EST GFR - AA 38 mL/min Low >60 [facility] Comment on above: Order Comment: 1 Result Comment: Afri can Turkish GFR Calc Performed By: #### L 100.0100, L500.4050, L504.2610 #### [facility] [address] [place], [address] GAP 3 Low 5-15 [facility] Comment on above: Order Comment: 1 Performed By: #### L 100.0100, L500.4050, L504.2610 #### [facility] [address] [place], [address] GFR/1.73 sq M.predicted among non-blacks MDRD (S/P/Bld) [Vol rate/Area] 31 mL/min/{1.73_m2} Low >60 [facility] Comment on above: Order Comment: 1 Result Comment: Non- GFR Calc Performed By: #### L 100.0100, L500.4050, L504.2610 #### [facility] [address] [place], [address] Globulin (S) [Mass/Vol] 4.9 g/dL High 2.2-4.2 [facility] Comment on above: Order Comment: 1 Performed By: #### L 100.0100, L500.4050, L504.2610 #### [facility] [address] [place], [address] Glucose [Mass/Vol] 130 mg/dL High 74-106 [facility] Comment on above: Order Comment: 1 Result Comment: Fast ing Glucose result greater than or equal to 126 mg/dL suggests DIABETES MELLITUS per A.D.A. criteria. Performed By: #### L 100.0100, L500.4050, L504.2610 #### [facility] [address] [place], [address] Potassium [Moles/Vol] 4.8 mmol/L Normal 3.5-5.1 [facility] Comment on above: Order Comment: 1 Performed By: #### L 100.0100, L500.4050, L504.2610 #### [facility] [address] [place], [address] Sodium [Moles/Vol] 134 mmol/L Low 136-145 [facility] Comment on above: Order Comment: 1 Performed By: #### L 100.0100, L500.4050, L504.2610 #### [facility] [address] [place], [address] T PROT 8.0 g/dL Normal 6.4-8.2 [facility] Comment on above: Order Comment: 1 Performed By: #### L 100.0100, L500.4050, L504.2610 #### [facility] [address] [place], [address] Urea nitrogen [Mass/Vol] 44 mg/dL High 7-18 [facility] Comment on above: Order Comment: 1 Performed By: #### L 100.0100, L500.4050, L504.2610 #### [facility] [address] [place], [address] Estimated glomerular filtrat ion rate (GFR) AmericanOrdered By: Russ Zamora on 05-05-2024 Estimated GFR (MDRD) Amer 38 mL/min Low >60 [facility] Comment on above: GFR Calc LDHon 05-05-2024 LDH 126 U/L Normal 87-241 [facility] Comment on above: Order Comment: 1 Performed By: #### L 100.0100, L500.4050, L504.2610 #### [facility] [address] [place], [address] Oncology Visit Reporton 04-20 Oncology Visit Report [facility] [place] [facility] [address] [place] [address] OFFICE VISIT Date of Service: 05/05/24 1323 MR#: [id number] Acct: [id number] Name: PEDRO HILLMAN Rep #: [id number] : 1945 From: Russ Zamora MD Age/Sex: 79/M Location: [facility] [place] Status: Signed HPI Subjective Date of Service 05/05/24 Chief Complaint F/u for NSCLC History of Present Illness 79y.o.man was found to have a R lung mass. CT chest 04/12/2022 showed RUL mass 3.5. He had CT guided bx on 04/28/2022, Pathology showed NSCLC favor squamous cell carcinoma. He was referred for further evaluation and management. PET/CT on 05/17/2022 showed ???Right upper lobe mass and right mediastinal (Station 4R) adenopathy suggestive of malignancy. MRI brain on 05/22/2022 showed no evidence of metastatic disease. 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 Considered Frail adult with R foot Ulcer, poor candidate for chemotherapy. He received Radiation to the R lung from 06/12/2022 to 07/09/22. He is on observation. CT on 10/12/2023 showed new nodular density in the anterior aspect of the right lower lobe. PET CT scan done on 11/06/2023 showed viable tumor in L adrenal gland. He had CT done and comes for follow-up. Has chronic cough. [facility] Medical History Other persistent atrial fibrillation New onset atrial flutter DIMA Wears hearing aid in both ears Former smoker Coronary artery disease Peripheral vascular occlusive disease BPH (benign prostatic hyperplasia) Chronic kidney disease, stage 3 Atherosclerosis of coronary artery of [place] heart without angina pectoris Hyperlipidemia Lower extremity edema Venous insufficiency Malnutrition Delayed wound healing Osteomyelitis of ankle, left, acute Ulcer of left lower extremity with fat layer exposed Type 2 diabetes mellitus with diabetic polyneuropathy Anemia GERD (gastroesophageal reflux disease) Hypertension Surgical History H/O aorto-femoral bypass ( 2009) History of transurethral resection of prostate Presence of aortocoronary bypass graft ( 03/2013) Family History Brother Diabetes Father , Age 72 stomach ulcers No problems noted. Mother , Age 71 pancreatitis No problems noted. Sister , hepatitis C No problems noted. Social History Smoking Status: Former smoker Tobacco: How many years used: 30 how long ago did patient quit smokin years Intake Vital Signs 02/04/24 14:17 05/05/24 13:26 05/05/24 13:28 Height 5 ft 7 in 5 ft 7 in 5 ft 7 in Weight: 80.881 kg BMI 27.9 BP 117/65 Blood Pressure Location Lt brachial Position Sitting Respiration 18 Pulse 61 Pulse Source Monitor Temp 98 F Temperature Source Temporal Artery Pulse Oximetry (%) 96 Oxygen Delivery Method room air Intake Is patient in pain?: No Allergies ibuprofen Allergy (Severe, Verified 05/05/24 13:28) Facial swelling (angioedema) Medications ???Medication ???Instructions ???Recorded ???Confirmed ???Type insulin glargine 100 unit/mL 40 unit SQ DAILY 11/19/19 05/05/24 History subcutaneous solution multivitamin (Daily Multi-Vitamin 1 tab PO DAILY 06/28/20 05/05/24 History tablet) sitagliptin phosphate 50 mg tablet 50 mg PO DAILY 11/02/21 05/05/24 History (Januvia) pravastatin 20 mg tablet 20 mg PO DAILY 01/17/22 05/05/24 History cranberry 500 mg capsule 500 mg PO DAILY 07/25/23 05/05/24 History docusate sodium 100 mg capsule 100 mg PO DAILY PRN 07/25/23 05/05/24 History (Colace) apixaban 5 mg tablet (Eliquis) 5 mg PO BID #180 tabs 08/29/23 05/05/24 Rx clopidogrel 75 mg tablet (Plavix) 75 mg PO DAILY #90 tabs 10/03/23 05/05/24 Rx metoprolol tartrate 25 mg tablet 12.5 mg (1/2 x 25 mg) PO BID #45 01/24/24 05/05/24 Rx tabs albuterol sulfate 90 mcg/actuation 2 puff inhalation Q4H PRN 02/15/24 05/05/24 Rx aerosol inhaler shortness of breath or wheezing #3 device fluticasone fur. 200 mcg-umeclid 1 inh inhalation DAILY #3 ea 02/15/24 05/05/24 Rx 62.5 mcg-vilant 25 mcg inhalat.powder (Trelegy Ellipta) lisinopril 2.5 mg tablet 2.5 mg PO DAILY #90 TABLETS 02/22/24 05/05/24 Rx doxycycline hyclate 100 mg capsule 100 mg PO BID 2 weeks #28 caps 04/01/24 05/05/24 Rx Have you fallen in the past year?: No Central Venous Access Central Venous Access: No 04/28/2024 CT c/a reviewed. CT/CT Chest AND Abd W/ Contrast IMPRESSION: Stable examination. Electronically Signed: Kenyon Flores MD at 15:33 EDT Exam Physica (more content not included)... Normal [facility] CREATININE FINGERSTICKon Creatinine [Mass/Vol] 1.4 mg/dL High 0.70-1.30 [facility] Comment on above: Performed By: #### L 9100.0200 #### [facility] [address] [place], [place], [address] GFR/1.73 sq M.predicted among non-blacks MDRD (S/P/Bld) [Vol rate/Area] 50.0000 mL/min/{1.73_m2} Low >60 [facility] Comment on above: Performed By: #### L 9100.0200 #### [facility] [address] [place], [address] CT Chest AND Abd W/ Contrast on 04-28-2024 CT Chest AND Abd W/ Contrast [facility] [address] [place], [place] [address] CT Chest AND Abd W/ Contrast MR#: [id number] Acct: [id number] Name: PEDRO HILLMAN Rep #: [id number] : 1945 M 79 From: Kenyon cruz MD PCP: Dr. Tonio Fajardo, DO Status: REG CLI Study: CT Chest AND Abd W/ Contrast Date of Exam: 05/13 Exam# [id number] Ordering Dr: Russ Zamora MD [id number] STUDY: CT CHEST T ABDOMEN WITH CONTRAST REASON FOR EXAM: Male, 79 years old. MONITOR LUNG CA RADIATION DOSAGE (If Supplied By Facility): CTDIvol = ( 14.99 ) mGy, DLP = ( 1022.07 ) mGycm TECHNIQUE: Transaxial imaging was performed following intravenous administration of IV 100mL Isovue-300. Multiplanar coronal and sagittal images were reformatted. Individualized dose optimization techniques were used for this CT. COMPARISON: Comparison is made with prior study dated January 28, 2024. FINDINGS: CHEST Stable right pleural effusion. Essentially stable appearance of the mass in the anterior aspect of the right upper lobe. Volume loss in the right upper lobe with evidence of a post radiation fibrosis. There is evidence of scarring. Stable scarring in the left upper lobe. Sternal cerclage wires and vascular clips are present from a prior sternotomy and coronary artery bypass graft procedure (CABG). There are calcifications of the coronary arteries. Calcification of the mitral valve annulus. Normal mediastinum. Normal hilar regions. Normal unenhanced pulmonary arteries. There is atherosclerotic calcification of the aortic arch with tortuosity and elongation of the aortic arch and descending thoracic aorta. There are multi-level degenerative changes of the thoracic spine. ABDOMEN Normal liver. There are multiple gallstones. Normal spleen. Normal pancreas. Normal bilateral adrenal glands. Normal right kidney. Normal left kidney. Normal visualized stomach. Normal small intestine. There are scattered colonic diverticula consistent with diverticulosis. The appendix is visualized and appears normal. There is diffuse atherosclerotic calcification of the abdominal aorta, without a demonstrated aneurysm. The patient is status post aorto by iliac bypass surgery. Normal inferior vena cava. Normal retroperitoneum. Normal abdominal wall. There are degenerative changes of the visualized lumbar spine. CT/CT Chest AND Abd W/ Contrast IMPRESSION: Stable examination. Electronically Signed: Kenyon Flores MD at 15:33 EDT , CC: Dr. Russ Zamora MD; Dr. Tonio Fajardo DO Assistant Professor Of Radiology: Signed [facility] Culture, Anaerobic Any [facility] talat 04-01-2024 CUAN #1 Studies have confirmed that Anaerobic Gram Positive Cocci are routinely SUSCEPTABLE to Penicillin and generally susceptible to Beta-lactams and Beta-lactamase inhibitors, Cephalosporins, Carbapenems and Metronidazole. They are showing increased RESISTANCE to Clindamycin Bacteria Spec Anaerobe Cult #2 Studies Have Confirmed That B. Fragilis Group are Routinely Susceptible to: Metronidazole, Piperacillin/Tazobac olivo, Amoxicillin/Clavulan ic acid, and Ertapenem. They are showing an increased RESISTANCE to Penicillin, Clindamycin and Moxifloxacin. Anaerobic cocci Bacteroides fragilis Beta Lactamase-Reportable Positive Normal [facility] Comment on above: Performed By: #### L 100.0100, L500.4050, L504.2610 #### [facility] [address] [place], [address] Wound Cultureon 03-30-2024 WC Clinical correlation necessary, Possible skin contamination. Bacteria Wnd Cult #2 Gram positive chela suggestive of a diphtheroid. Susceptibility not normally performed on this organism Staphylococcus pseudintermediu Amount Growth 2+ Corynebacterium amycolatum Amount Growth 2+ Staphylococcus pseudintermediu: REACTION Clindamycin Islt LASHAWN 0.25 S Clindamycin.induced Susc Islt NEG Erythromycin Islt LASHAWN <=0.25 S Gentamicin Islt LASHAWN <=0.5 S Oxacillin Susc Islt <=0.25 S Tetracycline Islt LASHAWN <=1 S Vancomycin Islt LASHAWN <=0.5 S Normal [facility] Comment on above: Performed By: #### L 100.0100, L500.4050, L504.2610 #### [facility] [address] [place], [address] Gram Stainon 03-28-2024 GS Gram Stain 2+ Red Blood Cells 2+ White Blood Cells 1+ Gram negative rods No Epithelial cells Normal [facility] Comment on above: Performed By: #### L 100.0100, L500.4050, L504.2610 #### [facility] [address] [place], [address] Miscellaneous Lab Procedureo n 02-15-2024 [facility] TEST Normal [facility] Comment on above: Order Comment: DO NO T CHARGE VROPAV MISSED WHEN PT WAS PREVIOUSLY IN. Comments: LAB TEMI LIQUID BX Result Comment: Sent directly to testing facility per ordering physician. Performed By: #### L 801.1541 #### [facility] [address] [place], [place], [address] Pulmonary Visit Reporton Pulmonary Visit Report [facility] [place] [address] [place] [address] OFFICE VISIT Date of Service: 02/15/24 MR#: [id number] Acct: [id number] Name: PEDRO HILLMAN Rep #: [id number] : 1945 Provider: FARHEEN Mart Age/Sex: 79/M Location: [facility] [place] Status: Signed Assessment and Plan Assessment and Plan (1) COPD (chronic obstructive pulmonary disease): Status: Chronic Qualifiers: COPD type: emphysema Emphysema type: centrilobular Qualified Code(s): J43.2 - Centrilobular emphysema Plan: I do not believe he is an exacerbation of COPD today, however given his ongoing symptoms of shortness of breath that is worse with exertion and a daily cough productive of white-colored s putum, I am going to escalate therapy. Discontinue Anoro and place the patient on Trelegy. Follow- up in the office in 6 months. He has been encouraged to contact the office if he has any medication side effects secondary to the Trelegy. He was instructed to rinse his mouth out after each use. All questions were answered. He conveys understanding and is agreeable with this plan. 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 Frail adult with R foot Ulcer making him a poor candidate for chemotherapy. S/P Radiation therapy to R lung and mediastinum from 06/12/2022 to 07/09/2022. On observation. Comes for follow up. CT on 04/10/2023 shows stable RUL lung mass. CT 10/12/2023 reviewed, shows new R LL nodule. Labs reviewed. PET/CT 11/06/2023 reviewed, newly enhancing nodule in right hemithorax does not fulfill criteria for viable cancer, viable tumor in left adrenal gland. Comes for follow up. CT on 01/28/2024 reviewed, stable changes in lung and L adrenal gland. Discussed findings, Pt wants to short term CT. Plan: Complicates exam, plan, care and prognosis. Medications: New fluticasone-umeclidi n-vilanter 200-62.5-25 mcg (Trelegy Ellipta) 1 inh inhalation DAILY 3 ea 3RF Refilled albuterol sulfate 90 mcg/actuation administer with spacer 2 puffs inhalation Q4H PRN 3 device 3RF shortness of breath or wheezing Discontinued umeclidinium-vilante rol 62.5-25 mcg/actuation (Anoro Ellipta) Discontinued Reason: Order Changed 1 inh inhalation DAILY Plan Details Follow Up: 6 Months ([facility]) HPI 3 M FU Chief Complaint: Routine follow-up HPI Comments Details: This patient presents to the office today for follow-up of his COPD complicated by primary squamous cell carcinoma of the right upper lobe lung. He is in a wheelchair, on room air and accompanied today by his daughter. He has not recently been seen in the ED or urgent care for any respiratory illness. He has not required any antibiotics or prednisone for any breathing problems. Patient is compliant with use of Anoro 1 puff daily. He has not recently used albuterol rescue inhaler. The patient reports shortness of breath that is worse with exertion. He has a cough that is productive of white-colored sputum. He denies any hemoptysis he denies any chest pain or palpitations. He does report occasional chest congestion. He has not had any fever, chills or body aches. Intake Vital Signs 10/31/23 12:05 11/12/23 13:22 02/04/24 14:17 02/15/24 08:14 Height 5 ft 7 in 5 ft 7 in 5 ft 7 in 5 ft 7 in Weight: 177 lb BMI 27.7 BP 123/65 H Blood Pressure Location Lt brachial Position Sitting Respiration 18 Pulse 102 H Pulse Source Monitor Temp 98.2 F Temperature Source Temporal Artery Pulse Oximetry (%) 96 Oxygen Delivery Method room air Intake Visit Reasons: 3 M FU Chief Complaint: Lung nodule, COPD [employer] Required: No DME Vendor: None Accompanied by: Daughter In Law Is patient in pain?: No Allergies ibuprofen Allergy (Severe, Verified 02/15/24 11:04) Facial swelling (angioedema) Medications ???Medication ???Instructions ???Recorded ???Confirmed ???Type insulin glargine 100 unit/mL 40 unit SQ DAILY 11/19/19 02/15/24 History subcutaneous solution multivitamin (Daily Multi-Vitamin 1 tab PO DAILY 06/28/20 02/15/24 History tablet) sitagliptin phosphate 50 mg tablet 50 mg PO DAILY 11/02/21 02/15/24 History (Januvia) pravastatin 20 mg tablet 20 mg PO DAILY 01/17/22 02/15/24 History lisinopril 2.5 mg tablet See Rx Instructions .Route 10/20/22 02/15/24 Rx .COMPLEX #90 TABLETS cranberry 500 mg capsule 500 mg PO DAILY 07/25/23 02/15/24 History docusate sodium 100 mg capsule 100 mg PO DAILY PRN 07/25/23 02/15/24 History (Colace) apixaban 5 mg tablet (Eliquis) 5 mg PO BID #180 tabs 08/29/23 02/15/24 Rx clopidogrel 75 mg tablet (Plavix) 75 mg PO DAILY #90 tabs 10/03/23 (more content not included)... Normal [facility] Oncology Visit Reporton 01-18 Oncology Visit Report [facility] [address] [place] [address]. [place] [address] OFFICE VISIT Date of Service: 02/04/24 1413 MR#: [id number] Acct: [id number] Name: PEDRO HILLMAN Rep #: [id number] : 1945 From: Russ Zamora MD Age/Sex: 79/M Location: [facility] [place] Status: Signed HPI Subjective Date of Service 02/04/24 Chief Complaint F/u for Lung cancer. History of Present Illness 79y.o.man was found to have a R lung mass. CT chest 04/12/2022 showed RUL mass 3.5. He had CT guided bx on 04/28/2022, Pathology showed NSCLC favor squamous cell carcinoma. He was referred for further evaluation and management. PET/CT on 05/17/2022 showed ???Right upper lobe mass and right mediastinal (Station 4R) adenopathy suggestive of malignancy. MRI brain on 05/22/2022 showed no evidence of metastatic disease. 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 Considered Frail adult with R foot Ulcer, poor candidate for chemotherapy. He received Radiation to the R lung from 06/12/2022 to 07/09/22. He is on observation. CT on 10/12/2023 showed new nodular density in the anterior aspect of the right lower lobe. PET CT scan done on 11/06/2023 showed viable tumor in L adrenal gland. He had CT done and comes for follow-up. Has chronic cough. [facility] Medical History Other persistent atrial fibrillation New onset atrial flutter COVID Wears hearing aid in both ears Former smoker Coronary artery disease Peripheral vascular occlusive disease BPH (benign prostatic hyperplasia) Chronic kidney disease, stage 3 Atherosclerosis of coronary artery of [place] heart without angina pectoris Hyperlipidemia Lower extremity edema Venous insufficiency Malnutrition Delayed wound healing Osteomyelitis of ankle, left, acute Ulcer of left lower extremity with fat layer exposed Type 2 diabetes mellitus with diabetic polyneuropathy Anemia GERD (gastroesophageal reflux disease) Hypertension Surgical History H/O aorto-femoral bypass ( 2009) History of transurethral resection of prostate Presence of aortocoronary bypass graft ( 03/2013) Family History Brother Diabetes Father , Age 72 stomach ulcers No problems noted. Mother , Age 71 pancreatitis No problems noted. Sister , hepatitis C No problems noted. Social History Smoking Status: Former smoker Tobacco: How many years used: 30 how long ago did patient quit smokin years Intake Vital Signs 11/12/23 13:22 02/04/24 14:14 02/04/24 14:17 Height 5 ft 7 in 5 ft 7 in 5 ft 7 in Weight: 81.25 kg BMI 28.0 BP 111/64 Blood Pressure Location Lt brachial Position Sitting Respiration 18 Pulse 99 Pulse Source Monitor Temp 98.9 F Temperature Source Temporal Artery Pulse Oximetry (%) 95 Oxygen Delivery Method room air Intake Is patient in pain?: No Allergies ibuprofen Allergy (Severe, Verified 02/04/24 14:17) Facial swelling (angioedema) Medications ???Medication ???Instructions ???Recorded ???Confirmed ???Type insulin glargine 100 unit/mL 40 unit SQ DAILY 11/19/19 02/04/24 History subcutaneous solution multivitamin (Daily Multi-Vitamin 1 tab PO DAILY 06/28/20 02/04/24 History tablet) sitagliptin phosphate 50 mg tablet 50 mg PO DAILY 11/02/21 02/04/24 History (Januvia) pravastatin 20 mg tablet 20 mg PO DAILY 01/17/22 02/04/24 History lisinopril 2.5 mg tablet See Rx Instructions .Route 10/20/22 02/04/24 Rx .COMPLEX #90 TABLETS cranberry 500 mg capsule 500 mg PO DAILY 07/25/23 02/04/24 History docusate sodium 100 mg capsule 100 mg PO DAILY PRN 07/25/23 02/04/24 History (Colace) umeclidinium 62.5 mcg-vilanterol 1 inh inhalation DAILY 07/25/23 02/04/24 History 25 mcg/actuation powdr for inhalation (Anoro Ellipta) apixaban 5 mg tablet (Eliquis) 5 mg PO BID #180 tabs 08/29/23 02/04/24 Rx clopidogrel 75 mg tablet (Plavix) 75 mg PO DAILY #90 tabs 10/03/23 02/04/24 Rx albuterol sulfate 90 mcg/actuation 2 puff inhalation Q4H PRN 10/31/23 02/04/24 Rx aerosol inhaler shortness of breath or wheezing #3 device metoprolol tartrate 25 mg tablet 12.5 mg (1/2 x 25 mg) PO BID #45 01/24/24 02/04/24 Rx tabs Central Venous Access Central Venous Access: No Exam Physical Exam Narrative Elderly man sittting in motorized wheelchair. Const alert, oriented x3 and no apparent distress HEENT normocephalic, external ears normal and external nose normal Eyes PERRL and no scleral icterus Neck full ROM and supple Lymph Lymphatic: no (more content not included)... Normal [facility] CT Chest AND Abd W/O Contras ton 01-28-2024 CT Chest AND Abd W/O Contrast [facility] Imaging Services [address] [place] [address] CT Chest AND Abd W/O Contrast MR#: [id number] Acct: [id number] Name: PEDRO HILLMAN Rep #: [id number] : 1945 M 79 From: Kenyon cruz MD PCP: Dr. Tonio Fajardo, DO Status: REG CLI Study: CT Chest AND Abd W/O Contrast Date of Exam: Exam# [id number] Ordering Dr: Russ Zamora MD [id number] STUDY: CT CHEST WITHOUT CONTRAST REASON FOR EXAM: Male, 79 years old. LUNG CANCER. History of non-small cell lung cancer. Prior radiation. RADIATION DOSAGE (If Supplied By Facility): CTDIvol = ( 13.02 ) mGy, DLP = ( 824.35 ) mGycm TECHNIQUE: Transaxial imaging was performed without the administration of intravenous contrast material. Multiplanar coronal and sagittal images were reformatted. Individualized dose optimization techniques were used for this CT. COMPARISON: Comparison is made with prior study dated October 12, 2023. FINDINGS: CHEST Essentially stable 2 cm x 2.1 respectively mass in the anterior aspect of the right upper lobe with evidence of a volume loss and prominence of the right hilum. 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 Stable bullous changes at the left lung base. Sternal cerclage wires and vascular clips are present from a prior sternotomy and coronary artery bypass graft procedure (CABG). Coronary artery calcification. Calcification of the mitral valve annulus. Normal mediastinum. Normal hilar regions. Normal unenhanced pulmonary arteries. There is atherosclerotic calcification of the aortic arch with tortuosity and elongation of the aortic arch and descending thoracic aorta. There are multi-level degenerative changes of the thoracic spine. Stable mild enlargement of the left adrenal gland. . CT/CT Chest AND Abd W/O Contrast IMPRESSION: Stable examination. Electronically Signed: Kenyon Flores MD at 13:48 EDT , CC: Dr. Russ Zamora MD; Dr. Tonio Fajardo DO Assistant Professor Of Radiology: Signed Normal [facility] Miscellaneous procedureOrder ed By: Russ Zamora on 01-28-2024 Miscellaneous Test See comment [facility] Comment on above: Sent directly to [facility] per ordering physician. CBC W/Diff, Automatedon Absolute Lymph 1.03 X10 3/uL Normal 0.83-4.51 [facility] Comment on above: Performed By: #### L 100.0100, L500.4050, L504.2610 #### [facility] [address] [place], [address] Absolute Neut 6.1 X10 3/uL Normal 2.0-7.7 [facility] Comment on above: Performed By: #### L 100.0100, L500.4050, [id number] #### [facility] [address] [place], [address] Basophils/100 WBC (Bld) 0.6 % Normal 0-1 [facility] Comment on above: Performed By: #### L 100.0100, L500.4050, [id number] #### [facility] [address] [place], [address] Eosinophils/100 WBC (Bld) 1.9 % Normal 0-5 [facility] Comment on above: Performed By: #### L 100.0100, L500.4050, [id number] #### [facility] [address] [place], [address] Erythrocyte distribution width (RBC) [Ratio] 16.3 % High 11.6-14.6 [facility] Comment on above: Performed By: #### L 100.0100, L500.4050, [id number] #### [facility] [address] [place], [address] Hematocrit (Bld) [Volume fraction] 38.0 % Low 40-54 [facility] Comment on above: Performed By: #### L 100.0100, L500.4050, [id number] #### [facility] [address] [place], [address] Hemoglobin (Bld) [Mass/Vol] 11.8 g/dL Low 13.0-16.5 [facility] Comment on above: Performed By: #### L 100.0100, L500.4050, [id number] #### [facility] [address] [place], [address] IG% 1.000 High 0.0-0.9 [facility] Comment on above: Result Comment: IG% - Immature Granulocytes (promyelocytes, myelocytes and metamyelocytes) > 1% indicates that a LEFT SHIFT is Present. Performed By: #### L 100.0100, L500.4050, L504.2610 #### [facility] [address] [place], [address] Lymphocytes/100 WBC (Bld) 12.7 % Low 19-41 [facility] Comment on above: Performed By: #### L 100.0100, L500.4050, [id number] #### [facility] [address] [place], [address] MCH (RBC) [Entitic mass] 27.3 pg Normal 27.0-32.0 [facility] Comment on above: Performed By: #### L 100.0100, L500.4050, [id number] #### [facility] [address] [place], [address] MCHC (RBC) [Mass/Vol] 31.1 g/dL Low 32-36 [facility] Comment on above: Performed By: #### L 100.0100, L500.4050, L504.2610 #### [facility] [address] [place], [address] MCV (RBC) [Entitic vol] 88.0 fL Normal 80-94 [facility] Comment on above: Performed By: #### L 100.0100, L500.4050, [id number] #### [facility] [address] [place], [address] Monocytes/100 WBC (Bld) 8.9 % Normal 0-10 [facility] Comment on above: Performed By: #### L 100.0100, L500.4050, [id number] #### [facility] [address] [place], [address] Neutrophils/100 WBC (Bld) 74.9 % High 47-70 [facility] Comment on above: Performed By: #### L 100.0100, L500.4050, [id number] #### [facility] [address] [place], [address] Nucleated RBC (Bld) [#/Vol] 0 10*3/uL Normal 0-5 [facility] Comment on above: Performed By: #### L 100.0100, L500.4050, [id number] #### [facility] [address] [place], [address] Platelet mean volume (Bld) [Entitic vol] 9.6 fL Normal 6.2-12.0 [facility] Comment on above: Performed By: #### L 100.0100, L500.4050, [id number] #### [facility] [address] [place], [address] Platelets (Bld) [#/Vol] 223 10*3/uL Normal 150-450 [facility] Comment on above: Performed By: #### L 100.0100, L500.4050, [id number] #### [facility] [address] [place], [address] RBC (Bld) [#/Vol] 4.32 10*6/uL Low 4.6-6.2 [facility] Comment on above: Performed By: #### L 100.0100, L500.4050, [id number] #### [facility] [address] [place], [address] RDW SD 52.6 fl High 35.1-43.9 [facility] Comment on above: Performed By: #### L 100.0100, L500.4050, [id number] #### [facility] [address] [place], [address] WBC (Bld) [#/Vol] 8.1 10*3/uL Normal 4.4-11.0 [facility] Comment on above: Performed By: #### L 100.0100, L500.4050, [id number] #### [facility] [address] [place], [address] Comprehensive Metabolic Prof [facility] 01-21-2024 Albumin [Mass/Vol] 3.2 g/dL Normal 3.2-5.0 [facility] Comment on above: Order Comment: 1 Performed By: #### L 100.0100, L500.4050, [id number] #### [facility] [address] [place], [address] Albumin/Globulin [Mass ratio] 0.7 {ratio} Low 0.9-2.4 [facility] Comment on above: Order Comment: 1 Performed By: #### L 100.0100, L500.4050, [id number] #### [facility] [address] [place], [address] ALK P 61 U/L Normal 45-117 [facility] Comment on above: Order Comment: 1 Performed By: #### L 100.0100, L500.4050, [id number] #### [facility] [address] [place], [address] ALT [Catalytic activity/Vol] 16 U/L Normal 16-61 [facility] Comment on above: Order Comment: 1 Performed By: #### L 100.0100, L500.4050, [id number] #### [facility] [address] [place], [address] AST [Catalytic activity/Vol] 18 U/L Normal 15-37 [facility] Comment on above: Order Comment: 1 Performed By: #### L 100.0100, L500.4050, L504.2610 #### [facility] [address] [place], [address] Bilirubin [Mass/Vol] 0.50 mg/dL Normal 0.20-1.00 [facility] Comment on above: Order Comment: 1 Result Comment: For patients on eltrombopag therapy, use of Dimension Cross TBIL is not recommended. Performed By: #### L 100.0100, L500.4050, L504.2610 #### [facility] [address] [place], [address] BUN/CRE 19.5 RATIO Normal 10-20 [facility] Comment on above: Order Comment: 1 Performed By: #### L 100.0100, L500.4050, [id number] #### [facility] [address] [place], [address] CA,Total 9.2 mg/dL Normal 8.5-10.1 [facility] Comment on above: Order Comment: 1 Performed By: #### L 100.0100, L500.4050, [id number] #### [facility] [address] [place], [address] Chloride [Moles/Vol] 106 mmol/L Normal 98-107 [facility] Comment on above: Order Comment: 1 Performed By: #### L 100.0100, L500.4050, L504.2610 #### [facility] [address] [place], [address] CO2 [Moles/Vol] 26.0 mmol/L Normal 21.0-32.0 [facility] Comment on above: Order Comment: 1 Performed By: #### L 100.0100, L500.4050, L504.2610 #### [facility] [address] [place], [address] Creatinine [Mass/Vol] 2.36 mg/dL High 0.70-1.30 [facility] Comment on above: Order Comment: 1 Result Comment: The validity of the calculated GFR GFRAA in patients over 70 years has not been determined. Clinical correlation is essential. Performed By: #### L 100.0100, L500.4050, L504.2610 #### [facility] [address] [place], [address] ECRCL 25.40 ml/min Normal [facility] Comment on above: Order Comment: 1 Performed By: #### L 100.0100, L500.4050, L504.2610 #### [facility] [address] [place], [address] EST GFR - AA 34 mL/min Low >60 [facility] Comment on above: Order Comment: 1 Result Comment: Afri can Turkish GFR Calc Performed By: #### L 100.0100, L500.4050, L504.2610 #### [facility] [address] [place], [address] GAP 5 Normal 5-15 [facility] Comment on above: Order Comment: 1 Performed By: #### L 100.0100, L500.4050, L504.2610 #### [facility] [address] [place], [address] GFR/1.73 sq M.predicted among non-blacks MDRD (S/P/Bld) [Vol rate/Area] 28 mL/min/{1.73_m2} Low >60 [facility] Comment on above: Order Comment: 1 Result Comment: Non- GFR Calc Performed By: #### L 100.0100, L500.4050, L504.2610 #### [facility] [address] [place], [address] Globulin (S) [Mass/Vol] 4.8 g/dL High 2.2-4.2 [facility] Comment on above: Order Comment: 1 Performed By: #### L 100.0100, L500.4050, L504.2610 #### [facility] [address] [place], [address] Glucose [Mass/Vol] 164 mg/dL High 74-106 [facility] Comment on above: Order Comment: 1 Result Comment: Fast ing Glucose result greater than or equal to 126 mg/dL suggests DIABETES MELLITUS per A.D.A. criteria. Performed By: #### L 100.0100, L500.4050, L504.2610 #### [facility] [address] [place], [address] Potassium [Moles/Vol] 4.6 mmol/L Normal 3.5-5.1 [facility] Comment on above: Order Comment: 1 Performed By: #### L 100.0100, L500.4050, L504.2610 #### [facility] [address] [place], [address] Sodium [Moles/Vol] 137 mmol/L Normal 136-145 [facility] Comment on above: Order Comment: 1 Performed By: #### L 100.0100, L500.4050, L504.2610 #### [facility] [address] [place], [address] T PROT 8.0 g/dL Normal 6.4-8.2 [facility] Comment on above: Order Comment: 1 Performed By: #### L 100.0100, L500.4050, L504.2610 #### [facility] [address] [place], [address] Urea nitrogen [Mass/Vol] 46 mg/dL High 7-18 [facility] Comment on above: Order Comment: 1 Performed By: #### L 100.0100, L500.4050, L504.2610 #### [facility] [address] [place], [address] LDHon 01-21-2024 LDH 120 U/L Normal 87-241 [facility] Comment on above: Order Comment: 1 Performed By: #### L 100.0100, L500.4050, L504.2610 #### [facility] [address] [place], [address] Wound Cultureon 12-28-2023 #1 Clinical correlation necessary, Possible skin contamination. Bacteria Wnd Cult #3 Penicillin is the drug of choice for Beta Streptococcal infections. For Penicillin allergic patients, Erythromycin may be used. Staphylococcus pseudintermediu Amount Growth 1+ Enterococcus faecalis Amount Growth Very Rare Streptococcus pyogenes Amount Growth Rare Staphylococcus pseudintermediu: REACTION Clindamycin Islt LASHAWN 0.25 S Clindamycin.induced Susc Islt NEG Erythromycin Islt LASHAWN <=0.25 S Gentamicin Islt LASHAWN <=0.5 S Oxacillin Susc Islt <=0.25 S Tetracycline Islt LASHAWN <=1 S Vancomycin Islt LASHAWN 1 S Enterococcus faecalis: REACTION Ampicillin Islt LASHAWN <=2 S Gentamicin Synergy Susc Islt SYN-S S Linezolid Islt LASHAWN 2 S Streptomycin High Pot Susc Islt SYN-S S Vancomycin Islt LASHAWN 2 S Normal [facility] Comment on above: Performed By: #### L 100.0100, L500.4050, L504.2610 #### [facility] [address] [place], [address] Gram Stainon 12-25-2023 GS Gram Stain Rare Red Blood Cells No organisms seen Normal [facility] Comment on above: Performed By: #### L 100.0100, L500.4050, L504.2610 #### [facility] [address] [place], [address] Bacteria identified Cx Nom ( Wound)Ordered By: Joaquim Suárez on 12-24-2023 Wound Culture Staphylococcus pseudintermediu [facility] Wound Culture Enterococcus faecalis [facility] Wound Culture Streptococcus pyogenes [facility] Gram stain for investigation of transfusion reactionOrdered By: Joaquim Suárez on 12-24-2023 Microscopic observation Gram stain Nom (Unsp spec) [facility] Oncology Visit Reporton 10-19 Oncology Visit Report [facility] [address] [place] [address] OFFICE VISIT Date of Service: 11/12/23 1321 MR#: [id number] Acct: [id number] Name: PEDRO HILLMAN Rep #: [id number] : 1945 From: Russ Zamora MD Age/Sex: 78/M Location: [facility] Status: Signed HPI Subjective Date of Service 11/12/23 Chief Complaint F/u for Lung cancer. History of Present Illness 78y.o.man was found to have a R lung mass. CT chest 04/12/2022 showed RUL mass 3.5. He had CT guided bx on 04/28/2022, Pathology showed NSCLC favor squamous cell carcinoma. He was referred for further evaluation and management. PET/CT on 05/17/2022 showed ???Right upper lobe mass and right mediastinal (Station 4R) adenopathy suggestive of malignancy. MRI brain on 05/22/2022 showed no evidence of metastatic disease. 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 Considered Frail adult with R foot Ulcer, poor candidate for chemotherapy. He received Radiation to the R lung from 06/12/2022 to 07/09/22. He is on observation. CT on Comes 10/12/2023 showed new nodular density in the anterior aspect of the right lower lobe. He had a PET CT scan done and comes for follow-up. [facility] Medical History Anemia Atherosclerosis of coronary artery of [place] heart without angina pectoris BPH (benign prostatic hyperplasia) Chronic kidney disease, stage 3 Coronary artery disease COVID Delayed wound healing Former smoker GERD (gastroesophageal reflux disease) Hyperlipidemia Hypertension Lower extremity edema Malnutrition New onset atrial flutter Osteomyelitis of ankle, left, acute Other persistent atrial fibrillation Peripheral vascular occlusive disease Type 2 diabetes mellitus with diabetic polyneuropathy Ulcer of left lower extremity with fat layer exposed Venous insufficiency Wears hearing aid in both ears Surgical History H/O aorto-femoral bypass ( 2009) History of transurethral resection of prostate Presence of aortocoronary bypass graft ( 03/2013) Family History Brother Diabetes Father , Age 72 stomach ulcers No problems noted. Mother , Age 71 pancreatitis No problems noted. Sister , hepatitis C No problems noted. Social History Smoking Status: Former smoker Tobacco: How many years used: 30 how long ago did patient quit smokin years Intake Vital Signs 10/18/23 14:51 10/31/23 12:05 11/12/23 13:22 Height 5 ft 7 in 5 ft 7 in 5 ft 7 in Weight: 81.391 kg 79.379 kg 81.193 kg BMI 28.0 27.3 28.0 BP 114/60 119/71 97/62 Blood Pressure Location Rt brachial Rt brachial Lt brachial Position Sitting Sitting Sitting Respiration 18 18 18 Pulse 98 78 103 H Pulse Source Monitor Monitor Monitor Temp 98.9 F 98.2 F 97.9 F Temperature Source Temporal Artery Temporal Artery Temporal Artery Pulse Oximetry (%) 96 94 98 Oxygen Delivery Method room air room air room air Intake Is patient in pain?: No Allergies ibuprofen Allergy (Severe, Verified 11/12/23 13:32) Facial swelling (angioedema) Medications insulin glargine 100 unit/mL subcutaneous solution 40 unit SQ DAILY 11/19/19 [History Confirmed 11/12/23] multivitamin (Daily Multi-Vitamin tablet) 1 tab PO DAILY 06/28/20 [History Confirmed 11/12/23] sitagliptin phosphate 50 mg tablet (Januvia) 50 mg PO DAILY 11/02/21 [History Confirmed 11/12/23] pravastatin 20 mg tablet 20 mg PO DAILY 01/17/22 [History Confirmed 11/12/23] lisinopril 2.5 mg tablet See Rx Instructions .Route .COMPLEX #90 TABLETS 10/20/22 [Rx Confirmed 11/12/23] cranberry 500 mg capsule 500 mg PO DAILY 07/25/23 [History Confirmed 11/12/23] docusate sodium 100 mg capsule (Colace) 100 mg PO DAILY PRN 07/25/23 [History Confirmed 11/12/23] umeclidinium 62.5 mcg-vilanterol 25 mcg/actuation powdr for inhalation (Anoro Ellipta) 1 inh inhalation DAILY 07/25/23 [History Confirmed 11/12/23] metoprolol tartrate 25 mg tablet 12.5 mg PO BID 07/27/23 [History Confirmed 11/12/23] apixaban 5 mg tablet (Eliquis) 5 mg PO BID #180 tabs 08/29/23 [Rx Confirmed 11/12/23] clopidogrel 75 mg tablet (Plavix) 75 mg PO DAILY #90 tabs 10/03/23 [Rx Confirmed 11/12/23] albuterol sulfate 90 mcg/actuation aerosol inhaler 2 puff inhalation Q4H PRN shortness of breath or wheezing #3 device 10/31/23 [Rx Confirmed 11/12/23] Laboratory Tests 10/18/23 11/06/23 14:10 07:55 WBC 10.8 Hgb 11.8 L Hct 37.6 L Plt Count 232 Absolute Neuts (auto) 8.3 H Sodium 137 Potassium 4.3 Chloride 107 Carbon Dioxide 26.0 BUN 34 H Creati (more content not included)... Normal [facility] Absolute lymphocyte countOrd ered By: Russ Zamora on 11-06-2023 Lymphocytes Auto (Unsp spec) [#/Vol] 0.95 10*3/uL 0.83-4.51 [facility] Addendum DocumentOrdered By: Russ Zamora on 11-06-2023 Serum Immunofixation Comments Comment . [facility] Comment on above: Protein electrophore sis scan will follow via computer,mail, or licensed psychiatric technician delivery. Albumin Elph [Mass/Vol]Order ed By: Russ Zamora on 11-06-2023 Albumin [Mass/Vol] 3.2 g/dL 2.9-4.4 [facility] Alpha 1 globulin Elph [Mass/ Vol]Ordered By: Russ Zamora on 11-06-2023 Reoyt-8-Usljvfzdt (PILY) 0.4 g/dL 0.0-0.4 [facility] Oueik-3-Czsniqvfq (PILY) 1.3 g/dL High 0.4-1.0 [facility] Automated lymphocyte count a s percentage of total leukocytesOrdered By: Russ Zamora on 11-06-2023 Lymphocytes/100 WBC Auto (Unsp spec) 10.5 % 19-41 [facility] Basophil percentageOrdered B y: Russ Zamora on 11-06-2023 Basophils/100 WBC (Bld) 0.6 % 0-1 [facility] Bilirubin [Mass/Vol] 0.30 mg/dL 0.20-1.00 [facility] Comment on above: For patients on eltr ombopag therapy, use of Dimension Cross TBIL is not recommended. Chloride [Moles/Vol] 105 mmol/L 98-107 [facility] Eosinophils/100 WBC (Bld) 2.1 % 0-5 [facility] Glucose [Mass/Vol] 106 mg/dL 74-106 [facility] Comment on above: Fasting Glucose resu lt from 100 to 125 mg/dL suggests IMPAIRED HOMEOSTASIS per A.D.A. criteria. Hemoglobin (Bld) [Mass/Vol] 11.5 g/dL 13.0-16.5 [facility] LDH [Catalytic activity/Vol] 170 U/L 87-241 [facility] Monocytes/100 WBC (Bld) 10.7 % 0-10 [facility] Neutrophils (Bld) [#/Vol] 6.8 10*3/uL 2.0-7.7 [facility] Neutrophils/100 WBC (Bld) 75.2 % 47-70 [facility] Potassium [Moles/Vol] 4.3 mmol/L 3.5-5.1 [facility] Protein [Mass/Vol] 8.2 g/dL 6.4-8.2 [facility] Sodium [Moles/Vol] 135 mmol/L 136-145 [facility] WBC (Bld) [#/Vol] 9.0 10*3/uL 4.4-11.0 [facility] Beta globulin Elph [Mass/Vol ]Ordered By: Russ Zamora on 11-06-2023 Beta-Globulins (PILY) 1.0 g/dL 0.7-1.3 [facility] C-reactive protein measureme nt by high sensitivity methodOrdered By: Russ Zamora on 11-06-2023 C-Reactive Protein Extended Range 22.10 mg/L High 0.0-3.0 [facility] Comment on above: C-Reactive Protein ( CRP) provides useful information for thediagnosis, therapy and monitoring of inflammatory processesand associated diseases. For the evaluation of Relative Riskfor Cardiovascular Disease, a High Sensitivity CRP (HSCRP)should be ordered. C-reactive protein measurement by high sensitivity method 22.10 mg/L High 0.0-3.0 [facility] Comment on above: C-Reactive Protein ( CRP) provides useful information for thediagnosis, therapy and monitoring of inflammatory processesand associated diseases. For the evaluation of Relative Riskfor Cardiovascular Disease, a High Sensitivity CRP (HSCRP)should be ordered. Determination of erythrocyte mean corpuscular volume (MCV)Ordered By: Russ Zamora on 11-06-2023 MCV (RBC) [Entitic vol] 88.0 fL 80-94 [facility] Erythrocyte distribution wid th ratioOrdered By: Russ Zamora on 11-06-2023 Erythrocyte distribution width (RBC) [Ratio] 15.5 % 11.6-14.6 [facility] Erythrocyte distribution wid th standard deviationOrdered By: Russ Zamora on 11-06-2023 Erythrocyte distribution width (RBC) [Entitic vol] 49.5 fL 35.1-43.9 [facility] Erythrocyte sedimentation ra teOrdered By: Russ Zamora on 11-06-2023 ESR (Bld) [Velocity] 21 mm/h High 0-20 [facility] Gamma globulin Elph [Mass/Vo l]Ordered By: Russ Zamora on 11-06-2023 Gamma Globulins (PILY) 1.8 g/dL 0.4-1.8 [facility] Hematocrit Auto (Bld) [Volum e fraction]Ordered By: Russ Zamora on 11-06-2023 Hematocrit (Bld) [Volume fraction] 36.8 % 40-54 [facility] Hemoglobin (Reticulocytes) [ Entitic mass]Ordered By: Russ Zamora on 11-06-2023 Reticulocyte Hemoglobin Equivalent 31.4 pg 30-35 [facility] Hemoglobin in reticulocytes (mass per reticulocyte)Ordered By: Russ Zamora on 11-06-2023 Hemoglobin (Reticulocytes) [Entitic mass] 31.4 pg 30-35 [facility] IgA [Mass/Vol]Ordered By: Flores Zamora on 11-06-2023 Immunoglobulin A 311 mg/dL 61-437 [facility] IgG [Mass/Vol]Ordered By: Flores Zamora on 11-06-2023 Immunoglobulin G 1529 mg/dL 603-1613 [facility] Immature granulocytes/100 WB C Auto (Bld)Ordered By: Russ Zamora on 11-06-2023 Immature granulocytes/100 WBC (Bld) 0.900 % 0.0-0.9 [facility] Comment on above: IG% - Immature Granu locytes (promyelocytes, myelocytes and metamyelocytes) > 1% indicates that a LEFT SHIFT is Present. Immature reticulocyte fracti onOrdered By: Russ Zamora on 11-06-2023 Immature Reticulocyte Fraction 22.10 % High 3.00-15.90 [facility] Immunoglobulin M measurement Ordered By: Russ Zamora on 11-06-2023 Immunoglobulin M 157 mg/dL High 15-143 [facility] Immunoglobulin light chains. kappa [Mass/Vol]Ordered By: Russ Zamora on 11-06-2023 [facility] [place] Light Chains, Quant 100.3 mg/L High 3.3-19.4 [facility] Immunoglobulin light chains. kappa/Immunoglobulin light chains.lambda (S) [Mass ratio]Ordered By: Russ Zamora on 11-06-2023 [facility] [place]/Lambda Light Chain Ratio 1.63 0.26-1.65 [facility] Comment on above: Performed at: [address] [id number] Director: Seb Bertrand PhD, Phone: [phone] Interpretation IEP [Interp]O rdered By: Russ Zamora on 11-06-2023 Immunofixation Screen Comment . [facility] Comment on above: No monoclonality det ected. Interpretation of serum or p lasma protein pattern by immunofixation (narrative resultOrdered By: Russ Zamora on 11-06-2023 Protein Fractions Immunofixation Jose Luis [Interp] Not Observed g/dL Not Observed [facility] - Chemistry and C hemistry - challengeOrdered By: Russ Zamora on 11-06-2023 Albumin/Globulin [Mass ratio] 0.6 {ratio} 0.9-2.4 [facility] ALP [Catalytic activity/Vol] 62 U/L 45-117 [facility] ALT [Catalytic activity/Vol] 17 U/L 16-61 [facility] CO2 [Moles/Vol] 24.0 mmol/L 21.0-32.0 [facility] Urea nitrogen/Creatinine [Mass ratio] 21.9 mg/mg 10-20 [facility] Laboratory - Hematology and Cell countsOrdered By: Russ Zamora on 11-06-2023 MCH (RBC) [Entitic mass] 27.5 pg 27.0-32.0 [facility] MCHC (RBC) [Mass/Vol] 31.3 g/dL 32-36 [facility] Nucleated RBC/100 WBC (Bld) [Ratio] 0 % 0-5 [facility] Platelet mean volume (Bld) [Entitic vol] 9.1 fL 6.2-12.0 [facility] Platelets (Bld) [#/Vol] 270 10*3/uL 150-450 [facility] Lambda free light chain kingsley urementOrdered By: Russ Zamora on 11-06-2023 Free Lambda Light Chains, Quant 61.5 mg/L High 5.7-26.3 [facility] No Panel InformationOrdered By: Russ Zamora on 11-06-2023 Addendum Document Comment . [facility] Comment on above: Protein electrophore sis scan will follow via computer,mail, or licensed psychiatric technician delivery. Estimated Creatinine Clearance Calc 31.12 ml/min [facility] Estimated GFR (MDRD) Amer 43 mL/min >60 [facility] Comment on above: GFR Calc Estimated GFR (MDRD) Non-Af Amer 35 mL/min >60 [facility] Comment on above: Non- GFR Calc Protein Fractions Immunofixa tion Jose Luis [Interp]Ordered By: Russ Zamora on 11-06-2023 M-Arash (PILY) Not Observed g/dL Not Observed [facility] RBC Auto (Bld) [#/Vol]Ordere d By: Russ Zamora on 11-06-2023 RBC (Bld) [#/Vol] 4.18 10*6/uL 4.6-6.2 [facility] Reticulocytes Auto (Bld) [#/ Vol]Ordered By: Russ Zamora on 11-06-2023 Reticulocyte Count 2.12 % High 0.5-1.5 [facility] Reticulocytes/100 RBC (Bld) 2.12 % High 0.5-1.5 [facility] Serum albumin/globulin ratio Ordered By: Russ Zamora on 11-06-2023 Albumin/Globulin (PILY) 0.8 0.7-1.7 [facility] Serum [id number] measu rement by electrophoresisOrdered By: Russ Zamora on 11-06-2023 Alpha 1 globulin Elph [Mass/Vol] 0.4 g/dL 0.0-0.4 [facility] Alpha 1 globulin Elph [Mass/Vol] 1.3 g/dL High 0.4-1.0 [facility] Serum globulin measurement ( mass/volume)Ordered By: Russ Zamora on 11-06-2023 Globulin (S) [Mass/Vol] 4.4 g/dL 2.2-3.9 [facility] Serum immunoglobulin kappa l ight chains/immunoglobulin lambda light chains mass ratioOrdered By: Russ Zamora on 11-06-2023 Immunoglobulin light chains.kappa/Immunoglobul in light chains.lambda (S) [Mass ratio] 1.63 0.26-1.65 [facility] Comment on above: Performed at: [facility] [id number] [place], [place] [id number] Director: Seb Bertrand PhD, Phone: [phone] Serum or plasma IgA measurem ent (mass/volume)Ordered By: Russ Zamora on 11-06-2023 IgA [Mass/Vol] 311 mg/dL 61-437 [facility] Serum or plasma IgG measurem ent (mass/volume)Ordered By: Russ Zamora on 11-06-2023 IgG [Mass/Vol] 1529 mg/dL 603-1611 [facility] Serum or plasma beta globuli n measurement by electrophoresis (mass/volume)Ordered By: Russ Zamora on 11-06-2023 Beta globulin Elph [Mass/Vol] 1.0 g/dL 0.7-1.3 [facility] Serum or plasma calcium kingsley urement (mass/volume)Ordered By: Russ Zamora on 11-06-2023 Calcium [Mass/Vol] 9.0 mg/dL 8.5-10.1 [facility] Serum or plasma creatinine m easurement (mass/volume)Ordered By: Russ Zamora on 11-06-2023 Creatinine [Mass/Vol] 1.96 mg/dL 0.70-1.30 [facility] Comment on above: The validity of the calculated GFR & GFRAA in patients over 70 years has not been determined. Clinical correlation is essential. Serum or plasma gamma globul in measurement by electrophoresis (mass/volume)Ordered By: Russ Zamora on 11-06-2023 Gamma globulin Elph [Mass/Vol] 1.8 g/dL 0.4-1.8 [facility] Serum or plasma immunoelectr ophoresis interpretation (nominal result)Ordered By: Russ Zamora on 11-06-2023 Interpretation IEP [Interp] Comment . [facility] Comment on above: No monoclonality det ected. Serum or plasma immunoglobul in kappa light chains measurement (mass/volume)Ordered By: Russ Zamora on 11-06-2023 Immunoglobulin light chains.kappa [Mass/Vol] 100.3 mg/L High 3.3-19.4 [facility] Serum or plasma urea nitroge n measurement (mass/volume)Ordered By: Russ Zamora on 11-06-2023 Urea nitrogen [Mass/Vol] 43 mg/dL 7-18 [facility] Serum or plasma uric acid me asurement (mass/volume)Ordered By: Russ Zamora on 11-06-2023 Urate [Mass/Vol] 6.6 mg/dL 3.5-7.2 [facility] Comment on above: The drugs N-Acetylcy steine and Metamizole may falsely depress this assay. Thin prep Papanicolaou smear with manual screeningOrdered By: Russ Zamora on 11-06-2023 Thin prep Papanicolaou smear with manual screening 3.2 g/dL 3.2-5.0 [facility] Thin prep Papanicolaou smear with manual screening 15 U/L 15-37 [facility] Thin prep Papanicolaou smear with manual screening 6 5-15 [facility] Thin prep Papanicolaou smear with manual screening 0.8 0.7-1.7 [facility] Total protein bloodOrdered B y: Russ Zamora on 11-06-2023 Protein [Mass/Vol] 7.6 g/dL 6.0-8.5 [facility] Basophil percentageOrdered B y: Russ Zamora on 10-12-2023 Creatinine [Mass/Vol] 1.5 mg/dL 0.70-1.30 [facility] Laboratory - Chemistry and C hemistry - challengeOrdered By: Russ Sera on 10-12-2023 GFR/1.73 sq M.predicted among non-blacks MDRD (S/P/Bld) [Vol rate/Area] 49.0000 mL/min/{1.73_m2} >60 [facility] Absolute lymphocyte countOrd ered By: Leslie Arriaga on 07-26-2023 Lymphocytes Auto (Unsp spec) [#/Vol] 1.22 10*3/uL 0.83-4.51 [facility] Assessment of wrist artery p atency prior to arterial punctureOrdered By: Lorie Mart on 07-26-2023 Arterial patency Wrist artery --pre arterial puncture Positive [facility] Base excessOrdered By: Obed Mart on 07-26-2023 Base excess Calc (BldV) [Moles/Vol] -1 mmol/L -2-2 [facility] Basophil percentageOrdered B y: Leslie Arriaga on 07-26-2023 Basophils/100 WBC (Bld) 0.7 % 0-1 [facility] Chloride [Moles/Vol] 105 mmol/L 98-107 [facility] Eosinophils/100 WBC (Bld) 1.7 % 0-5 [facility] Glucose [Mass/Vol] 99 mg/dL 74-106 [facility] Neutrophils (Bld) [#/Vol] 9.0 10*3/uL 2.0-7.7 [facility] Neutrophils/100 WBC (Bld) 76.3 % 47-70 [facility] Potassium [Moles/Vol] 4.8 mmol/L 3.5-5.1 [facility] Sodium [Moles/Vol] 135 mmol/L 136-145 [facility] WBC (Bld) [#/Vol] 11.7 10*3/uL 4.4-11.0 [facility] Basophil percentageOrdered B y: Lorie Mart on 07-26-2023 Basophil percentage 24.8 mmol/L 22-26 [facility] Basophils/100 WBC (Bld) 95 % 95-99 [facility] Blood erythrocytes count (nu mber/volume)Ordered By: Leslie Arriaga on 07-26-2023 RBC (Bld) [#/Vol] 4.50 10*6/uL 4.6-6.2 [facility] Blood hemoglobin measurement (mass/volume)Ordered By: Leslie Arriaga on 07-26-2023 Hemoglobin (Bld) [Mass/Vol] 12.5 g/dL 13.0-16.5 [facility] Blood lymphocytes/100 leukoc ytesOrdered By: Leslie Arriaga on 07-26-2023 Lymphocytes/100 WBC (Bld) 10.4 % 19-41 [facility] Blood monocytes/100 leukocyt esOrdered By: Leslie Arriaga on 07-26-2023 Monocytes/100 WBC (Bld) 10.2 % 0-10 [facility] Blood platelet mean volumeOr dered By: Leslie Arriaga on 07-26-2023 Platelet mean volume (Bld) [Entitic vol] 10.6 fL 6.2-12.0 [facility] CO2 (BldA) [Partial pressure ]Ordered By: Lorie Mart on 07-26-2023 CO2 (Bld) [Partial pressure] 42.6 mm[Hg] 35-45 [facility] Determination of erythrocyte mean corpuscular volume (MCV)Ordered By: Leslie Arriaga on 07-26-2023 MCV (RBC) [Entitic vol] 87.6 fL 80-94 [facility] Hematocrit Auto (Bld) [Volum e fraction]Ordered By: Leslie Arriaga on 07-26-2023 Hematocrit (Bld) [Volume fraction] 39.4 % 40-54 [facility] Laboratory - Chemistry and C hemistry - challengeOrdered By: Leslie Arriaga on 07-26-2023 CO2 [Moles/Vol] 28.0 mmol/L 21.0-32.0 [facility] Natriuretic peptide B (Bld) [Mass/Vol] 233.5 pg/mL 0-100 [facility] Urea nitrogen/Creatinine [Mass ratio] 25.4 mg/mg 10-20 [facility] Laboratory - Hematology and Cell countsOrdered By: Leslie Arriaga on 07-26-2023 Erythrocyte distribution width (RBC) [Entitic vol] 52.0 fL 35.1-43.9 [facility] Erythrocyte distribution width (RBC) [Ratio] 16.3 % 11.6-14.6 [facility] Immature granulocytes/100 WBC (Bld) 0.700 % 0.0-0.9 [facility] Comment on above: IG% - Immature Granu locytes (promyelocytes, myelocytes and metamyelocytes) > 1% indicates that a LEFT SHIFT is Present. MCH (RBC) [Entitic mass] 27.8 pg 27.0-32.0 [facility] Nucleated RBC/100 WBC (Bld) [Ratio] 0 % 0-5 [facility] MCHC Auto (RBC) [Mass/Vol]Or dered By: Leslie Arriaga on 07-26-2023 MCHC (RBC) [Mass/Vol] 31.7 g/dL 32-36 [facility] No Panel InformationOrdered By: Leslie Arriaga on 07-26-2023 Estimated GFR (MDRD) Amer 40 mL/min >60 [facility] Comment on above: GFR Calc Estimated GFR (MDRD) Non-Af Amer 33 mL/min >60 [facility] Comment on above: Non- GFR Calc No Panel InformationOrdered By: Lorie Mart on 07-26-2023 Blood Gas Sample Site R Radial [facility] Blood Gas Specimen Type ART [facility] Blood Gas Total CO2 26 mmol/L [facility] Blood Gas Vent Mode Not entered [facility] Oxygen Delivery Device [id number] [facility] Oxygen (BldA) [Partial press ure]Ordered By: Lorie Mart on 07-26-2023 Oxygen (Bld) [Partial pressure] 77 mmHG 75-100 [facility] Platelets bldOrdered By: Lashawn Arriaga on 07-26-2023 Platelets (Bld) [#/Vol] 264 10*3/uL 150-450 [facility] Serum or plasma calcium kingsley urement (mass/volume)Ordered By: Leslie Arriaga on 07-26-2023 Calcium [Mass/Vol] 9.3 mg/dL 8.5-10.1 [facility] Serum or plasma creatinine m easurement (mass/volume)Ordered By: Leslie Arriaga on 07-26-2023 Creatinine [Mass/Vol] 2.09 mg/dL 0.70-1.30 [facility] Comment on above: The validity of the calculated GFR & GFRAA in patients over 70 years has not been determined. Clinical correlation is essential. Serum or plasma urea nitroge n measurement (mass/volume)Ordered By: Leslie Arriaga on 07-26-2023 Urea nitrogen [Mass/Vol] 53 mg/dL 7-18 [facility] Thin prep Papanicolaou smear with manual screeningOrdered By: Leslie Arriaga on 07-26-2023 Thin prep Papanicolaou smear with manual screening 2 5-15 [facility] pH measurementOrdered By: Pj Mart on 07-26-2023 pH (Unsp spec) 7.37 [pH] 7.35-7.45 [facility] Anaerobic cultureOrdered By: Joaquim Suárez on 06-22-2023 Bacteria identified Anaer cx Nom (Unsp spec) No anaerobic bacteria isolated. [facility] Bacteria identified Cx Nom ( Wound)Ordered By: Joaquim Suárez on 06-22-2023 Wound Culture Staphylococcus epidermidis [facility] Wound Culture Corynebacterium jeikeium [facility] Fungus cultureOrdered By: Flores Suárez on 06-22-2023 Fungus identified Cx Nom (Unsp spec) [facility] Gram stain for investigation of transfusion reactionOrdered By: Joaquim Suárez on 06-22-2023 Microscopic observation Gram stain Nom (Unsp spec) [facility] Glucose Glucometer (BldC) [M ass/Vol]Ordered By: Joaquim Suárez on 06-08-2023 Glucose [Mass/Vol] 72 mg/dL 74-106 [facility] Comment on above: MANAGEMENT OF PATIEN T CARE PER NURSING PROTOCOL Absolute lymphocyte countOrd ered By: Russ Zamora on 04-17-2023 Lymphocytes Auto (Unsp spec) [#/Vol] 1.02 10*3/uL 0.83-4.51 [facility] Basophil percentageOrdered B y: Russ Zamora on 04-17-2023 Basophils/100 WBC (Bld) 0.5 % 0-1 [facility] Bilirubin [Mass/Vol] 0.30 mg/dL 0.20-1.00 [facility] Comment on above: For patients on eltr ombopag therapy, use of Dimension Cross TBIL is not recommended. Chloride [Moles/Vol] 102 mmol/L 98-107 [facility] Eosinophils/100 WBC (Bld) 2.6 % 0-5 [facility] Glucose [Mass/Vol] 209 mg/dL 74-106 [facility] Comment on above: Glucose result great er than or equal to 200 mg/dLsuggests DIABETES MELLITUS per A.D.A. criteria. LDH [Catalytic activity/Vol] 152 U/L 87-241 [facility] Neutrophils (Bld) [#/Vol] 6.0 10*3/uL 2.0-7.7 [facility] Neutrophils/100 WBC (Bld) 74.2 % 47-70 [facility] Potassium [Moles/Vol] 4.3 mmol/L 3.5-5.1 [facility] Protein [Mass/Vol] 7.8 g/dL 6.4-8.2 [facility] Sodium [Moles/Vol] 136 mmol/L 136-145 [facility] WBC (Bld) [#/Vol] 8.1 10*3/uL 4.4-11.0 [facility] Blood erythrocytes count (nu mber/volume)Ordered By: Russ Zamora on 04-17-2023 RBC (Bld) [#/Vol] 4.45 10*6/uL 4.6-6.2 [facility] Blood hemoglobin measurement (mass/volume)Ordered By: Russ Zamora on 04-17-2023 Hemoglobin (Bld) [Mass/Vol] 12.3 g/dL 13.0-16.5 [facility] Blood lymphocytes/100 leukoc ytesOrdered By: Russ Zamora on 04-17-2023 Lymphocytes/100 WBC (Bld) 12.6 % 19-41 [facility] Blood monocytes/100 leukocyt esOrdered By: Russ Zamora on 04-17-2023 Monocytes/100 WBC (Bld) 9.4 % 0-10 [facility] Blood platelet mean volumeOr dered By: Russ Zamora on 04-17-2023 Platelet mean volume (Bld) [Entitic vol] 9.5 fL 6.2-12.0 [facility] Determination of erythrocyte mean corpuscular volume (MCV)Ordered By: Russ Zamora on 04-17-2023 MCV (RBC) [Entitic vol] 89.9 fL 80-94 [facility] Hematocrit Auto (Bld) [Volum e fraction]Ordered By: Russ Zamora on 04-17-2023 Hematocrit (Bld) [Volume fraction] 40.0 % 40-54 [facility] Laboratory - Chemistry and C hemistry - challengeOrdered By: Russ Zamora on 04-17-2023 ALP [Catalytic activity/Vol] 58 U/L 45-117 [facility] ALT [Catalytic activity/Vol] 21 U/L 16-61 [facility] CO2 [Moles/Vol] 27.0 mmol/L 21.0-32.0 [facility] Globulin (S) [Mass/Vol] 4.5 g/dL 2.2-4.2 [facility] Urea nitrogen/Creatinine [Mass ratio] 20.3 mg/mg 10-20 [facility] Laboratory - Hematology and Cell countsOrdered By: Russ Zamora on 04-17-2023 Erythrocyte distribution width (RBC) [Entitic vol] 54.4 fL 35.1-43.9 [facility] Erythrocyte distribution width (RBC) [Ratio] 16.5 % 11.6-14.6 [facility] Immature granulocytes/100 WBC (Bld) 0.700 % 0.0-0.9 [facility] Comment on above: IG% - Immature Granu locytes (promyelocytes, myelocytes and metamyelocytes) > 1% indicates that a LEFT SHIFT is Present. MCH (RBC) [Entitic mass] 27.6 pg 27.0-32.0 [facility] Nucleated RBC/100 WBC (Bld) [Ratio] 0 % 0-5 [facility] MCHC Auto (RBC) [Mass/Vol]Or dered By: Russ Zamora on 04-17-2023 MCHC (RBC) [Mass/Vol] 30.8 g/dL 32-36 [facility] No Panel InformationOrdered By: Russ Zamora on 04-17-2023 Estimated Creatinine Clearance Calc 29.38 ml/min [facility] Estimated GFR (MDRD) Amer 45 mL/min >60 [facility] Comment on above: GFR Calc Estimated GFR (MDRD) Non-Af Amer 37 mL/min >60 [facility] Comment on above: Non- GFR Calc Platelets bldOrdered By: Frantz Zamora on 04-17-2023 Platelets (Bld) [#/Vol] 214 10*3/uL 150-450 [facility] Serum or plasma albumin kingsley urement (mass/volume)Ordered By: Russ Zamora on 04-17-2023 Albumin [Mass/Vol] 3.3 g/dL 3.2-5.0 [facility] Serum or plasma albumin/glob ulin mass ratioOrdered By: Russ Zamora on 04-17-2023 Albumin/Globulin [Mass ratio] 0.7 {ratio} 0.9-2.4 [facility] Serum or plasma calcium kingsley urement (mass/volume)Ordered By: Russ Zamora on 04-17-2023 Calcium [Mass/Vol] 9.1 mg/dL 8.5-10.1 [facility] Serum or plasma creatinine m easurement (mass/volume)Ordered By: Russ Zamora on 04-17-2023 Creatinine [Mass/Vol] 1.87 mg/dL 0.70-1.30 [facility] Comment on above: The validity of the calculated GFR & GFRAA in patients over 70 years has not been determined. Clinical correlation is essential. Serum or plasma urea nitroge n measurement (mass/volume)Ordered By: Russ Zamora on 04-17-2023 Urea nitrogen [Mass/Vol] 38 mg/dL 7-18 [facility] Thin prep Papanicolaou smear with manual screeningOrdered By: [facility]23 Thin prep Papanicolaou smear with manual screening 16 U/L 15-37 [facility] Thin prep Papanicolaou smear with manual screening 7 5-15 [facility] Basophil percentageOrdered B y: Russ Zamora on 04-10-2023 Creatinine [Mass/Vol] 1.1 mg/dL 0.70-1.30 [facility] No Panel InformationOrdered By: Russ Zamora on 04-10-2023 Bedside Estimated GFR (eGFR) > 60.0000 mL/min >60 [facility] Anaerobic cultureOrdered By: Bonny Glynn on 01-13-2023 Bacteria identified Anaer cx Nom (Unsp spec) No anaerobic bacteria isolated. [facility] Bacteria identified Cx Nom ( Wound)Ordered By: Bonny Glynn on 01-11-2023 W[facility] stain for investigation of transfusion reactionOrdered By: Bonny Glynn on 01-09-2023 Microscopic observation Gram stain Nom (Unsp spec) [facility] Anaerobic cultureOrdered By: Bonny Glynn on 01-08-2023 Bacteria identified Anaer cx Nom (Unsp spec) No anaerobic bacteria isolated. [facility] Bacteria identified Cx Nom ( Wound)Ordered By: Bonny Glynn on 01-08-2023 Wound Culture [facility]aphylococcus [facility]inters[facility]u [facility] Gram stain for investigation of transfusion reactionOrdered By: Bonny Glynn on 01-08-2023 Microscopic observation Gram stain Nom (Unsp spec) [facility] Laboratory - Microbiology an d Antimicrobial susceptibilityOrdered By: Dr. Ochoa on 01-05-2023 Bacteria identified Cx Nom (Bld) No growth in 5 days. [facility] Culture, urineOrdered By: Dr Marianna Ochoa on 01-02-2023 Bacteria identified Cx Nom (U) Culture exhibits no growth. [facility] Influenza virus A and B and SARS-CoV-2 (COVID-19) Ag panel - Upper respiratory specimOrdered By: Dr. Ochoa on 12-31-2022 SARS-CoV-2 & FLU Antigen (Rapid) Influenzae A [facility] Absolute lymphocyte countOrd ered By: Dr. Ochoa on 12-30-2022 Lymphocytes Auto (Unsp spec) [#/Vol] 0.68 10*3/uL 0.83-4.51 [facility] Basophil percentageOrdered B y: Dr. Ochoa on 12-30-2022 Basophil percentage 0-5 SEEN /hpf 0-5 [facility] Basophils/100 WBC (Bld) 0.5 % 0-1 [facility] Bilirubin [Mass/Vol] 0.50 mg/dL 0.20-1.00 [facility] Comment on above: For patients on eltr ombopag therapy, use of Dimension Cross TBIL is not recommended. Chloride [Moles/Vol] 102 mmol/L 98-107 [facility] Eosinophils/100 WBC (Bld) 0.2 % 0-5 [facility] Glucose [Mass/Vol] 119 mg/dL 74-106 [facility] Comment on above: Fasting Glucose resu lt from 100 to 125 mg/dL suggests IMPAIRED HOMEOSTASIS per A.D.A. criteria. Lactate [Moles/Vol] 1.4 mmol/L 0.4-2.0 [facility] Neutrophils (Bld) [#/Vol] 8.8 10*3/uL 2.0-7.7 [facility] Neutrophils/100 WBC (Bld) 83.3 % 47-70 [facility] Potassium [Moles/Vol] 5.2 mmol/L 3.5-5.1 [facility] Protein [Mass/Vol] 8.2 g/dL 6.4-8.2 [facility] Sodium [Moles/Vol] 134 mmol/L 136-145 [facility] WBC (Bld) [#/Vol] 10.6 10*3/uL 4.4-11.0 [facility] Bilirubin Test strip Ql (U)O rdered By: Dr. Ochoa on 12-30-2022 Bilirubin Ql (U) Negative Negative [facility] Blood erythrocytes count (nu mber/volume)Ordered By: Dr. Ochoa on 12-30-2022 RBC (Bld) [#/Vol] 4.36 10*6/uL 4.6-6.2 [facility] Blood hemoglobin measurement (mass/volume)Ordered By: Dr. Ochoa on 12-30-2022 Hemoglobin (Bld) [Mass/Vol] 12.1 g/dL 13.0-16.5 [facility] Blood lymphocytes/100 leukoc ytesOrdered By: Dr. Ochoa on 12-30-2022 Lymphocytes/100 WBC (Bld) 6.4 % 19-41 [facility] Blood monocytes/100 leukocyt esOrdered By: Dr. Ochoa on 12-30-2022 Monocytes/100 WBC (Bld) 9.1 % 0-10 [facility] Blood platelet mean volumeOr dered By: Dr. Ochoa on 12-30-2022 Platelet mean volume (Bld) [Entitic vol] 10.2 fL 6.2-12.0 [facility] Culture, urineOrdered By: Chino Ochoa on 12-30-2022 Bacteria identified Cx Nom (U) Culture exhibits no growth. [facility] Determination of erythrocyte mean corpuscular volume (MCV)Ordered By: Dr. Ochoa on 12-30-2022 MCV (RBC) [Entitic vol] 87.2 fL 80-94 [facility] Hematocrit Auto (Bld) [Volum e fraction]Ordered By: Dr. Ochoa on 12-30-2022 Hematocrit (Bld) [Volume fraction] 38.0 % 40-54 [facility] INR in Blood by Coagulation assayOrdered By: Dr. Ochoa on 12-30-2022 INR Coag (Bld) [Relative time] 1.3 {INR} [facility] Influenza virus A and B and SARS-CoV-2 (COVID-19) Ag panel - Upper respiratory specimOrdered By: Chris Ochoa on 12-30-2022 SARS-CoV-2 & FLU Antigen (Rapid) Influenzae A [facility] Ketones Test strip Ql (U)Ord ered By: Dr. Ochoa on 12-30-2022 Ketones Ql (U) Negative Negative [facility] Laboratory - Chemistry and C hemistry - challengeOrdered By: Dr. Ochoa on 12-30-2022 ALP [Catalytic activity/Vol] 53 U/L 45-117 [facility] ALT [Catalytic activity/Vol] 22 U/L 16-61 [facility] CO2 [Moles/Vol] 25.0 mmol/L 21.0-32.0 [facility] Globulin (S) [Mass/Vol] 4.7 g/dL 2.2-4.2 [facility] Urea nitrogen/Creatinine [Mass ratio] 22.0 mg/mg 10-20 [facility] Laboratory - CoagulationOrde red By: Dr. Ochoa on 12-30-2022 aPTT Coag (Bld) [Time] 38.9 s 24.1-36.2 [facility] PT Coag (PPP) [Time] 15.8 s 11.7-14.9 [facility] Laboratory - Hematology and Cell countsOrdered By: Dr. Ochoa on 12-30-2022 Erythrocyte distribution width (RBC) [Entitic vol] 50.5 fL 35.1-43.9 [facility] Erythrocyte distribution width (RBC) [Ratio] 15.9 % 11.6-14.6 [facility] Immature granulocytes/100 WBC (Bld) 0.500 % 0.0-0.9 [facility] Comment on above: IG% - Immature Granu locytes (promyelocytes, myelocytes and metamyelocytes) > 1% indicates that a LEFT SHIFT is Present. MCH (RBC) [Entitic mass] 27.8 pg 27.0-32.0 [facility] Nucleated RBC/100 WBC (Bld) [Ratio] 0 % 0-5 [facility] Laboratory - Microbiology an d Antimicrobial susceptibilityOrdered By: Chris Ochoa on 12-30-2022 Bacteria identified Cx Nom (Bld) No growth in 5 days. [facility] MCHC Auto (RBC) [Mass/Vol]Or dered By: Dr. Ochoa on 12-30-2022 MCHC (RBC) [Mass/Vol] 31.8 g/dL 32-36 [facility] Mucus LM Ql (Urine sed)Order ed By: Dr. Ochoa on 12-30-2022 Mucus Ql (Urine sed) 0 SEEN /hpf [facility] Nitrite Test strip Ql (U)Ord ered By: Dr. Ochoa on 12-30-2022 Nitrite Ql (U) Negative Negative [facility] No Panel InformationOrdered By: Dr. Ochoa on 12-30-2022 Estimated Creatinine Clearance Calc 27.91 ml/min [facility] Estimated GFR (MDRD) Amer 42 mL/min >60 [facility] Comment on above: GFR Calc Estimated GFR (MDRD) Non-Af Amer 35 mL/min >60 [facility] Comment on above: Non- GFR Calc Platelets bldOrdered By: Dr. Ochoa on 12-30-2022 Platelets (Bld) [#/Vol] 210 10*3/uL 150-450 [facility] Protein Test strip Ql (U)Ord ered By: Dr. Ochoa on 12-30-2022 Protein Ql (U) 100 mg/dl Negative [facility] Serum or plasma albumin kingsley urement (mass/volume)Ordered By: Dr. Ochoa on 12-30-2022 Albumin [Mass/Vol] 3.5 g/dL 3.2-5.0 [facility] Serum or plasma albumin/glob ulin mass ratioOrdered By: Dr. Ochoa on 12-30-2022 Albumin/Globulin [Mass ratio] 0.7 {ratio} 0.9-2.4 [facility] Serum or plasma calcium kingsley urement (mass/volume)Ordered By: Dr. Ochoa on 12-30-2022 Calcium [Mass/Vol] 9.2 mg/dL 8.5-10.1 [facility] Serum or plasma creatinine m easurement (mass/volume)Ordered By: Dr. Ochoa on 12-30-2022 Creatinine [Mass/Vol] 2.00 mg/dL 0.70-1.30 [facility] Comment on above: The validity of the calculated GFR & GFRAA in patients over 70 years has not been determined. Clinical correlation is essential. Serum or plasma urea nitroge n measurement (mass/volume)Ordered By: Dr. Ochoa on 12-30-2022 Urea nitrogen [Mass/Vol] 44 mg/dL 7-18 [facility] Squamous epithelial cells de tection in urine sediment by light microscopyOrdered By: Dr. Ochoa on 12-30-2022 Epithelial cells.squamous LM Ql (Urine sed) 0 SEEN /hpf 0-5 [facility] Thin prep Papanicolaou smear with manual screeningOrdered By: Dr. Ochoa on 12-30-2022 Thin prep Papanicolaou smear with manual screening 22 U/L 15-37 [facility] Thin prep Papanicolaou smear with manual screening 7 5-15 [facility] Urine blood detectionOrdered By: Dr. Ochoa on 12-30-2022 RBC Ql (U) 25 /ul Negative [facility] RBC Ql (U) 0 SEEN /hpf 0-5 [facility] Urine clarityOrdered By: Dr. Ochoa on 12-30-2022 Clarity (U) Clear Clear [facility] Urine color determinationOrd ered By: Dr. Ochoa on 12-30-2022 Color (U) Yellow Yellow [facility] Urine glucose detectionOrder ed By: Dr. Ochoa on 12-30-2022 Glucose Ql (U) Normal mg/dl Normal [facility] Urine leukocyte esterase det ection by dipstickOrdered By: Dr. Ochoa on 12-30-2022 Leukocyte esterase Test strip Ql (U) 25 /ul Negative [facility] Urine pHOrdered By: Dr. Amy chowdhury on 12-30-2022 pH (U) 7.0 [pH] 5.0 - 8.0 [facility] Urine sediment bacteria coun t by microscopy (number/high power field)Ordered By: Dr. Ochoa on 12-30-2022 Bacteria LM.HPF (Urine sed) [#/Area] 0 /[HPF] None Seen [facility] Urine specific gravity measu rementOrdered By: Dr. Ochoa on 12-30-2022 Specific gravity (U) [Rel density] 1.005 1.002-1.030 [facility] Urobilinogen Auto test strip Ql (U)Ordered By: Dr. Ochoa on 12-30-2022 Urobilinogen Ql (U) Normal mg/dl Normal [facility] Absolute lymphocyte countOrd ered By: Dr. Zamora on 10-16-2022 Lymphocytes Auto (Unsp spec) [#/Vol] 1.25 10*3/uL 0.83-4.51 [facility] Basophil percentageOrdered B y: Dr. Zamora on 10-16-2022 Basophils/100 WBC (Bld) 0.6 % 0-1 [facility] Bilirubin [Mass/Vol] 0.30 mg/dL 0.20-1.00 [facility] Comment on above: For patients on eltr ombopag therapy, use of Dimension Cross TBIL is not recommended. Chloride [Moles/Vol] 106 mmol/L 98-107 [facility] Eosinophils/100 WBC (Bld) 1.4 % 0-5 [facility] Glucose [Mass/Vol] 225 mg/dL 74-106 [facility] Comment on above: Glucose result great er than or equal to 200 mg/dLsuggests DIABETES MELLITUS per A.D.A. criteria. LDH [Catalytic activity/Vol] 135 U/L 87-241 [facility] Neutrophils (Bld) [#/Vol] 5.1 10*3/uL 2.0-7.7 [facility] Neutrophils/100 WBC (Bld) 70.2 % 47-70 [facility] Potassium [Moles/Vol] 4.5 mmol/L 3.5-5.1 [facility] Protein [Mass/Vol] 7.8 g/dL 6.4-8.2 [facility] Sodium [Moles/Vol] 139 mmol/L 136-145 [facility] WBC (Bld) [#/Vol] 7.3 10*3/uL 4.4-11.0 [facility] Blood erythrocytes count (nu mber/volume)Ordered By: Dr. Zamora on 10-16-2022 RBC (Bld) [#/Vol] 3.94 10*6/uL 4.6-6.2 [facility] Blood hemoglobin measurement (mass/volume)Ordered By: Dr. Zamora on 10-16-2022 Hemoglobin (Bld) [Mass/Vol] 11.5 g/dL 13.0-16.5 [facility] Blood lymphocytes/100 leukoc ytesOrdered By: Dr. Zamora on 10-16-2022 Lymphocytes/100 WBC (Bld) 17.2 % 19-41 [facility] Blood monocytes/100 leukocyt esOrdered By: Dr. Zamora on 10-16-2022 Monocytes/100 WBC (Bld) 9.8 % 0-10 [facility] Blood platelet mean volumeOr dered By: Dr. Zamora on 10-16-2022 Platelet mean volume (Bld) [Entitic vol] 9.9 fL 6.2-12.0 [facility] Determination of erythrocyte mean corpuscular volume (MCV)Ordered By: Dr. Zamora on 10-16-2022 MCV (RBC) [Entitic vol] 91.1 fL 80-94 [facility] Hematocrit Auto (Bld) [Volum e fraction]Ordered By: Dr. Zamora on 10-16-2022 Hematocrit (Bld) [Volume fraction] 35.9 % 40-54 [facility] Laboratory - Chemistry and C hemistry - challengeOrdered By: Dr. Zamora on 10-16-2022 ALP [Catalytic activity/Vol] 52 U/L 45-117 [facility] ALT [Catalytic activity/Vol] 19 U/L 16-61 [facility] CO2 [Moles/Vol] 26.0 mmol/L 21.0-32.0 [facility] Globulin (S) [Mass/Vol] 4.5 g/dL 2.2-4.2 [facility] Urea nitrogen/Creatinine [Mass ratio] 17.5 mg/mg 10-20 [facility] Laboratory - Hematology and Cell countsOrdered By: Dr. Zamora on 10-16-2022 Erythrocyte distribution width (RBC) [Entitic vol] 50.4 fL 35.1-43.9 [facility] Erythrocyte distribution width (RBC) [Ratio] 15.2 % 11.6-14.6 [facility] Immature granulocytes/100 WBC (Bld) 0.800 % 0.0-0.9 [facility] Comment on above: IG% - Immature Granu locytes (promyelocytes, myelocytes and metamyelocytes) > 1% indicates that a LEFT SHIFT is Present. MCH (RBC) [Entitic mass] 29.2 pg 27.0-32.0 [facility] Nucleated RBC/100 WBC (Bld) [Ratio] 0 % 0-5 [facility] MCHC Auto (RBC) [Mass/Vol]Or dered By: Dr. Zamora on 10-16-2022 MCHC (RBC) [Mass/Vol] 32.0 g/dL 32-36 [facility] No Panel InformationOrdered By: Dr. Zamora on 10-16-2022 Estimated GFR (MDRD) Amer 45 mL/min >60 [facility] Comment on above: GFR Calc Estimated GFR (MDRD) Non-Af Amer 37 mL/min >60 [facility] Comment on above: Non- GFR Calc Platelets bldOrdered By: Dr. Zamora on 10-16-2022 Platelets (Bld) [#/Vol] 193 10*3/uL 150-450 [facility] Serum or plasma albumin kingsley urement (mass/volume)Ordered By: Dr. Zamora on 10-16-2022 Albumin [Mass/Vol] 3.3 g/dL 3.2-5.0 [facility] Serum or plasma albumin/glob ulin mass ratioOrdered By: Dr. Zamora on 10-16-2022 Albumin/Globulin [Mass ratio] 0.7 {ratio} 0.9-2.4 [facility] Serum or plasma calcium kingsley urement (mass/volume)Ordered By: Dr. Zamora on 10-16-2022 Calcium [Mass/Vol] 9.3 mg/dL 8.5-10.1 [facility] Serum or plasma creatinine m easurement (mass/volume)Ordered By: Dr. Zamora on 10-16-2022 Creatinine [Mass/Vol] 1.89 mg/dL 0.70-1.30 [facility] Comment on above: The validity of the calculated GFR & GFRAA in patients over 70 years has not been determined. Clinical correlation is essential. Serum or plasma urea nitroge n measurement (mass/volume)Ordered By: Dr. Zamora on 10-16-2022 Urea nitrogen [Mass/Vol] 33 mg/dL 7-18 [facility] Thin prep Papanicolaou smear with manual screeningOrdered By: Dr. Zamora on 10-16-2022 Thin prep Papanicolaou smear with manual screening 17 U/L 15-37 [facility] Thin prep Papanicolaou smear with manual screening 7 5-15 [facility] Basophil percentageOrdered B y: Dr. Zamora on 10-09-2022 Creatinine [Mass/Vol] 1.4 mg/dL 0.70-1.30 [facility] Laboratory - Chemistry and C hemistry - challengeOrdered By: Dr. 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 [facility] Bilirubin Test strip Ql (U)O rdered By: Bonny Glynn on 10-02-2022 Bilirubin Ql (U) Negative Negative [facility] Ketones Test strip Ql (U)Ord ered By: Bonny Glynn on 10-02-2022 Ketones Ql (U) Negative Negative [facility] Nitrite Test strip Ql (U)Ord ered By: Bonny Glynn on 10-02-2022 Nitrite Ql (U) Positive Negative [facility] Protein Test strip Ql (U)Ord ered By: Bonny Glynn on 10-02-2022 Protein Ql (U) 100 mg/dl Negative [facility] Urine blood detectionOrdered By: Bonny Glynn on 10-02-2022 RBC Ql (U) 25 /ul Negative [facility] Urine clarityOrdered By: Ysabel Glynn on 10-02-2022 Clarity (U) Cloudy Clear [facility] Urine color determinationOrd ered By: Bonny Glynn on 10-02-2022 Color (U) Yellow Yellow [facility] Urine glucose detectionOrder ed By: Bonny Glynn on 10-02-2022 Glucose Ql (U) 50 mg/dl Normal [facility] Urine leukocyte esterase det ection by dipstickOrdered By: Bonny Glynn on 10-02-2022 Leukocyte esterase Test strip Ql (U) 500 /ul Negative [facility] Urine pHOrdered By: Bonny orosco on 10-02-2022 pH (U) 6.0 [pH] 5.0 - 8.0 [facility] Urine specific gravity measu rementOrdered By: Bonny Glynn on 10-02-2022 Specific gravity (U) [Rel density] 1.010 1.002-1.030 [facility] Urobilinogen Auto test strip Ql (U)Ordered By: Bonny Glynn on 10-02-2022 Urobilinogen Ql (U) Normal mg/dl Normal [facility] Adriana 07-28-2022 CNPN Telephone ([facility]) PEDRO HILLMAN ([id number]) 1945 M Date Time Provider Department 07/28/22 JESSIE RODRIGUEZ During your visit today, we recorded the following information about you: Jessie Rodriguez APRN.SHANI 07/28/2022 1:45 PM Signed In reviewing patient's chart I do not see that he has had any follow up done in regards to his actionable chest xray finding. I left a message on patient's voicemail for him to call back and advise. WOODROW Xiao Ma 08/04/2022 10:00 AM Signed Pt PCP outside [facility]. Call to pt and notified him of Providers message. Pt states that he did talk to him. FYI. Liseth Ortiz Ma Allergies As of Date: 07/28/2022 Noted Allergy Reaction IBUPROFEN 04/05/2022 12 - Shortness of Breath Date Reviewed: Never Reviewed Reason for Visit: Patient Update [1234] Prescriptions as of 08/09/2022 - aspirin, enteric coated (ASPIRIN, ENTERIC COATED) 81 mg EC tablet Take by mouth. - clopidogrel (PLAVIX) 75 mg tablet - colestipol (COLESTID) 1 gram tablet - glyBURIDE (DIABETA) 2.5 mg tablet Take 2.5 mg by mouth. - LANTUS SOLOSTAR U-100 INSULIN 100 unit/mL (3 mL) - lisinopril 2.5 mg tablet - pravastatin (PRAVACHOL) 20 mg tablet - JANUVIA 50 mg tablet - cholecalciferol, vitamin D3, (VITAMIN D-3) 10 mcg (400 unit) cap Take 400 Units by mouth once daily. - fish oil/borage/flax/om3, 6,9 1 (OMEGA 3-6-9 COMPLEX ORAL) Take by mouth. - lutein 10 mg tab Take by mouth. - MULTIVITAMIN ORAL Take by mouth. Problem List As Of Date 07/28/2022 Noted Resolved Osteoarthrosis, unspecified whether generalized*04/14/20 14 Encounter Status:Closed by JESSIE RODRIGUEZ on 08/09/22 Normal [facility] Anaerobic cultureOrdered By: Bonny Glynn on 07-21-2022 Bacteria identified Anaer cx Nom (Unsp spec) No anaerobic bacteria isolated. [facility] Bacteria identified Cx Nom ( Wound)Ordered By: Bonny Glynn on 07-20-2022 Wound Culture Staphylococcus pseudintermediu [facility] Gram stain for investigation of transfusion reactionOrdered By: Bonny Glynn on 07-19-2022 Microscopic observation Gram stain Nom (Unsp spec) [facility] No Panel InformationOrdered By: Dr. Choi on 06-01-2022 Estimated GFR (MDRD) Amer 63 mL/min >60 [facility] Comment on above: GFR Calc Estimated GFR (MDRD) Non-Af Amer 52 mL/min >60 [facility] Comment on above: Non- GFR Calc Serum or plasma creatinine m easurement (mass/volume)Ordered By: Dr. Choi on 06-01-2022 Creatinine [Mass/Vol] 1.40 mg/dL 0.70-1.30 [facility] Comment on above: The validity of the calculated GFR & GFRAA in patients over 70 years has not been determined. Clinical correlation is essential. Basophil percentageon 2021 Basophil percentage < 0.9 mg/dL 0.70-1.30 [facility] Work Phone: No Panel Informationon 10-03 -2022 Bedside Estimated GFR (eGFR) > 60.0000 mL/min >60 [facility] Work Phone: Absolute lymphocyte counton 04-14-2022 Lymphocytes Auto (Unsp spec) [#/Vol] 0.64 10*3/uL 0.83-4.51 [facility] Work Phone: Basophil percentageon 2021 Basophil percentage 0 SEEN /hpf 0-5 [facility] Work Phone: Basophils/100 WBC (Bld) 0.3 % 0-1 [facility] Work Phone: Bilirubin [Mass/Vol] 0.50 mg/dL 0.20-1.00 [facility] Work Phone: Comment on above: For patients on eltr ombopag therapy, use of Dimension Cross TBIL is not recommended. Chloride [Moles/Vol] 103 mmol/L 98-107 [facility] Work Phone: [phone] Eosinophils/100 WBC (Bld) 0.5 % 0-5 [facility] Work Phone: Glucose [Mass/Vol] 46 mg/dL 74-106 [facility] Work Phone: Comment on above: Glucose result less than 50 mg/dL suggests HYPOGLYCEMIA. Neutrophils (Bld) [#/Vol] 5.0 10*3/uL 2.0-7.7 [facility] Work Phone: Neutrophils/100 WBC (Bld) 76.1 % 47-70 [facility] Work Phone: Potassium [Moles/Vol] 4.2 mmol/L 3.5-5.1 [facility] Work Phone: Protein [Mass/Vol] 8.2 g/dL 6.4-8.2 [facility] Work Phone: Sodium [Moles/Vol] 136 mmol/L 136-145 [facility] Work Phone: WBC (Bld) [#/Vol] 6.6 10*3/uL 4.4-11.0 [facility] Work Phone: Bilirubin Test strip Ql (U)o n 04-14-2022 Bilirubin Ql (U) Negative Negative [facility] Work Phone: Blood erythrocytes count (nu mber/volume)on 04-14-2022 RBC (Bld) [#/Vol] 5.00 10*6/uL 4.6-6.2 [facility]: Blood hemoglobin measurement (mass/volume)on 04-14-2022 Hemoglobin (Bld) [Mass/Vol] 13.9 g/dL 13.0-16.5 [facility] Work Phone: Blood lymphocytes/100 leukoc yteson 04-14-2022 Lymphocytes/100 WBC (Bld) 9.7 % 19-41 [facility] Work Phone: Blood monocytes/100 leukocyt eson 04-14-2022 Monocytes/100 WBC (Bld) 12.3 % 0-10 [facility] Work Phone: Blood platelet mean volumeon 04-14-2022 Platelet mean volume (Bld) [Entitic vol] 10.5 fL 6.2-12.0 [facility] Work Phone: Determination of erythrocyte mean corpuscular volume (MCV)on 04-14-2022 MCV (RBC) [Entitic vol] 86.4 fL 80-94 [facility] Work Phone: Glucose Glucometer (BldC) [M ass/Vol]on 04-14-2022 Glucose [Mass/Vol] 113 mg/dL 74-106 [facility] Work Phone: Comment on above: MANAGEMENT OF PATIEN T CARE PER NURSING PROTOCOL Hematocrit Auto (Bld) [Volum e fraction]on 04-14-2022 Hematocrit (Bld) [Volume fraction] 43.2 % 40-54 [facility] Work Phone: INR in Blood by Coagulation assayon 04-14-2022 INR Coag (Bld) [Relative time] 1.1 {INR} [facility] Work Phone: Ketones Test strip Ql (U)on 04-14-2022 Ketones Ql (U) 5 mg/dl Negative [facility] Work Phone: Laboratory - Chemistry and C hemistry - challengeon 04-14-2022 ALP [Catalytic activity/Vol] 63 U/L 45-117 [facility] Work Phone: ALT [Catalytic activity/Vol] 29 U/L 16-61 [facility] Work Phone: CO2 [Moles/Vol] 25.0 mmol/L 21.0-32.0 [facility] Work Phone: Globulin (S) [Mass/Vol] 5.1 g/dL 2.2-4.2 [facility] Work Phone: Urea nitrogen/Creatinine [Mass ratio] 37.6 mg/mg 10-20 [facility] Work Phone: Laboratory - Coagulationon 0 04-14-2022 PT Coag (PPP) [Time] 14.0 s 11.7-14.9 [facility] Work Phone: Laboratory - Hematology and Cell countson 04-14-2022 Erythrocyte distribution width (RBC) [Entitic vol] 49.0 fL 35.1-43.9 [facility] Work Phone: Erythrocyte distribution width (RBC) [Ratio] 15.4 % 11.6-14.6 [facility] Work Phone: Immature granulocytes/100 WBC (Bld) 1.100 % 0.0-0.9 [facility] Work Phone: Comment on above: IG% - Immature Granu locytes (promyelocytes, myelocytes and metamyelocytes) > 1% indicates that a LEFT SHIFT is Present. MCH (RBC) [Entitic mass] 27.8 pg 27.0-32.0 [facility] Work Phone: [phone] Nucleated RBC/100 WBC (Bld) [Ratio] 0 % 0-5 [facility] Work Phone: MCHC Auto (RBC) [Mass/Vol]on 04-14-2022 MCHC (RBC) [Mass/Vol] 32.2 g/dL 32-36 [facility] Work Phone: Mucus LM Ql (Urine sed)on Mucus Ql (Urine sed) 0 SEEN /hpf [facility] Work Phone: Nitrite Test strip Ql (U)on 04-14-2022 Nitrite Ql (U) Negative Negative [facility] Work Phone: No Panel Informationon 04-14 Estimated Creatinine Clearance Calc 35.56 ml/min [facility] Work Phone: Estimated GFR (MDRD) Amer 55 mL/min >60 [facility] Work Phone: Comment on above: GFR Calc Estimated GFR (MDRD) Non-Af Amer 46 mL/min >60 [facility] Work Phone: Comment on above: Non- GFR Calc Platelets bldon 04-14-2022 Platelets (Bld) [#/Vol] 293 10*3/uL 150-450 [facility] Work Phone: Platelets (Bld) [#/Vol] 287 10*3/uL 150-450 [facility] Work Phone: Protein Test strip Ql (U)on 04-14-2022 Protein Ql (U) 30 mg/dl Negative [facility] Work Phone: Serum or plasma albumin kingsley urement (mass/volume)on 04-14-2022 Albumin [Mass/Vol] 3.1 g/dL 3.2-5.0 [facility] Work Phone: Serum or plasma albumin/glob ulin mass ratioon 04-14-2022 Albumin/Globulin [Mass ratio] 0.6 {ratio} 0.9-2.4 [facility] Work Phone: Serum or plasma calcium kingsley urement (mass/volume)on 04-14-2022 Calcium [Mass/Vol] 9.9 mg/dL 8.5-10.1 [facility] Work Phone: Serum or plasma creatinine m easurement (mass/volume)on 04-14-2022 Creatinine [Mass/Vol] 1.57 mg/dL 0.70-1.30 [facility] Work Phone: Comment on above: The validity of the calculated GFR & GFRAA in patients over 70 years has not been determined. Clinical correlation is essential. Serum or plasma urea nitroge n measurement (mass/volume)on 04-14-2022 Urea nitrogen [Mass/Vol] 59 mg/dL 7-18 [facility] Work Phone: Squamous epithelial cells de tection in urine sediment by light microscopyon 04-14-2022 Epithelial cells.squamous LM Ql (Urine sed) 0-5 SEEN /hpf 0-5 [facility] Work Phone: Thin prep Papanicolaou smear with manual screeningon 04-14-2022 Thin prep Papanicolaou smear with manual screening 30 U/L 15-37 [facility] Work Phone: Thin prep Papanicolaou smear with manual screening 8 5-15 [facility] Work Phone: Urine blood detectionon 03-21 RBC Ql (U) Negative Negative [facility] Work Phone: RBC Ql (U) 0 SEEN /hpf 0-5 [facility] Work Phone: Urine clarityon 04-14-2022 Clarity (U) Clear Clear [facility] Work Phone: Urine color determinationon 04-14-2022 Color (U) Yellow Yellow [facility] Work Phone: Urine glucose detectionon Glucose Ql (U) Normal mg/dl Normal [facility] Work Phone: Urine leukocyte esterase det ection by dipstickon 04-14-2022 Leukocyte esterase Test strip Ql (U) 25 /ul Negative [facility] Work Phone: Urine pHon 04-14-2022 pH (U) 6.0 [pH] 5.0 - 8.0 [facility] Work Phone: Urine sediment bacteria coun t by microscopy (number/high power field)on 04-14-2022 Bacteria LM.HPF (Urine sed) [#/Area] 0 /[HPF] None Seen [facility] Work Phone: Urine specific gravity measu rementon 04-14-2022 Specific gravity (U) [Rel density] 1.010 1.002-1.030 [facility] Work Phone: Urobilinogen Auto test strip Ql (U)on 04-14-2022 Urobilinogen Ql (U) Normal mg/dl Normal [facility] Work Phone: Basophil percentageon 2021 Creatinine [Mass/Vol] 1.4 mg/dL 0.70-1.30 [facility] Work Phone: Laboratory - Chemistry and C hemistry - challengeon 04-12-2022 GFR/1.73 sq M.predicted among non-blacks MDRD (S/P/Bld) [Vol rate/Area] 50.0000 mL/min/{1.73_m2} >60 [facility] Work Phone: CNPNon 04-06-2022 [employer] [facility] PEDRO HILLMAN ([id number]) 1945 M Date Time Provider Department 04/06/22 DEREK WHELAN [facility] During your visit today, we recorded the following information about you: Derek Whelan MD 04/06/2022 7:48 AM Signed COVID test was positive. Stay home for [...] F/u with worsening symptoms; ER if severe. 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 Mailbox full/Mailbox not set up/ Number incorrect. Please try again later. Ashley Kelley 04/08/2022 9:23 AM Signed left message on machine to give call back, different number from pharmacy. [phone]. Ashley Kelley 04/08/2022 2:56 PM Signed Notified pt of results, daughter will call to get information on restrictions. Ashley Kelley Allergies As of Date: 04/06/2022 Noted Allergy Reaction IBUPROFEN 04/05/2022 12 - Shortness of Breath Date Reviewed: Never Reviewed Reason for Visit: Results [95] Cmt: COVID+ Prescriptions as of 04/08/2022 - aspirin, enteric coated (ASPIRIN, ENTERIC COATED) 81 mg EC tablet Take by mouth. - clopidogrel (PLAVIX) 75 mg tablet - colestipol (COLESTID) 1 gram tablet - glyBURIDE (DIABETA) 2.5 mg tablet Take 2.5 mg by mouth. - LANTUS SOLOSTAR U-100 INSULIN 100 unit/mL (3 mL) - lisinopril 2.5 mg tablet - pravastatin (PRAVACHOL) 20 mg tablet - JANUVIA 50 mg tablet - cholecalciferol, vitamin D3, (VITAMIN D-3) 10 mcg (400 unit) cap Take 400 Units by mouth once daily. - fish oil/borage/flax/om3, 6,9 1 (OMEGA 3-6-9 COMPLEX ORAL) Take by mouth. - lutein 10 mg tab Take by mouth. - MULTIVITAMIN ORAL Take by mouth. - cephALEXin (KEFLEX) 500 mg capsule Take 1 capsule by mouth three times daily for 10 days. Problem List As Of Date 04/06/2022 Noted Resolved Osteoarthrosis, unspecified whether generalized*04/14/20 14 Encounter Status:Closed by NISH, ASHLEY on 04/08/22 Normal [facility] Bacteria Ur Culton 2 Bacteria identified Cx Nom (U) 5351004 Abnormal [facility] Comment on above: Order Comment: Speci men Type: URINE SPECIMEN Ordering Facility: [facility] Address: [address] [place], [place] [id number] Result Comment: >=10 0,000 CFU/ml Streptococcus mitis-oralis group No further workup Performed By: #### 6 30-4 #### [facility] CLIA [id number] [address] [place] [address] [place] CNOVon 04-05-2022 CNOV Office Visit ([facility]) PEDRO HILLMAN ([id number]) 1945 M Date Time Provider Department 04/05/22 1:15 PM JESSIE RODRIGUEZ [facility] During your visit today, we recorded the following information about you: Temperature Pulse Respiration Blood pressure 101.6 degrees 76/minute 16/minute 122/76 Weight 87.1 kg Jessie Rodriguez APRN.[employer] WINDER OPERATOR 04/05/2022 3:51 PM Signed Subjective HPI Pedro Obregonwell is a 77 year old male who [...] 400 Units by mouth once daily. fish oil/borage/flax/om3, 6,9 1 (OMEGA 3-6-9 COMPLEX ORAL) Take by [...] advised. -Result will be faxed to Dr. Fajardo today, please call his office today to schedule follow up appointment. 3. Suspected COVID-19 virus infection - ICD9: V01.79, ICD10: Z20.822 - COVID WITH FLUA+B, ROUTINE Jessie Rodriguez APRN.CARPET YARN WINDER OPERATOR Jessie Rodriguez APRN.SHANI 04/05/2022 2:27 PM Addendum ASSESSMENT/PLAN: 1. Burning with urination - ICD9: [...] advised. -Result will be faxed to Dr. Fajardo today, please call his office today to schedule follow up a (more content not included)... Normal [facility] 04-05-2022 CNPN Telephone ([facility]) KADYPEDRO Melendez ([id number]) 1945 M Date Time Provider Department 04/05/22 JESSIE RODRIGUEZ [facility] During your visit today, we recorded the following information about you: Jessie Rodriguez APRN.CNP 04/05/2022 2:59 PM Signed Radiology report faxed to patient's PCP Dr. Tonio Fajardo at [phone]. Confirmation of fax received. Patient was advised to call Dr. Fajardo today for a follow up appointment. Jessie Rodriguez APRN.CNP Allergies As of Date: 04/05/2022 Noted Allergy Reaction IBUPROFEN 04/05/2022 12 - Shortness of Breath Date Reviewed: Never Reviewed Reason for Visit: Results [95] Prescriptions as of 04/05/2022 - aspirin, enteric coated (ASPIRIN, ENTERIC COATED) 81 mg EC tablet Take by mouth. - clopidogrel (PLAVIX) 75 mg tablet - colestipol (COLESTID) 1 gram tablet - glyBURIDE (DIABETA) 2.5 mg tablet Take 2.5 mg by mouth. - LANTUS SOLOSTAR U-100 INSULIN 100 unit/mL (3 mL) - lisinopril 2.5 mg tablet - pravastatin (PRAVACHOL) 20 mg tablet - JANUVIA 50 mg tablet - cholecalciferol, vitamin D3, (VITAMIN D-3) 10 mcg (400 unit) cap Take 400 Units by mouth once daily. - fish oil/borage/flax/om3, 6,9 1 (OMEGA 3-6-9 COMPLEX ORAL) Take by mouth. - lutein 10 mg tab Take by mouth. - MULTIVITAMIN ORAL Take by mouth. - cephALEXin (KEFLEX) 500 mg capsule Take 1 capsule by mouth three times daily for 10 days. Problem List As Of Date 04/05/2022 Noted Resolved Osteoarthrosis, unspecified whether generalized*04/14/20 14 Encounter Status:Closed by JESSIE RODRIGUEZ on 8/17/22 Normal [facility] No Panel InformationOrdered By: [facility] Provider on 04-05-2022 Radiology Result ACTIONABLE Abnormal [facility] Comment on above: This report contains an incidental or actionable finding. This finding may be a new finding separate from the reason your provider ordered the imaging test or it may be an already known finding that needs additional or continued follow-up. Because of this incidental or actionable finding, you may need another test (imaging or a different type of test). Please contact your provider for the next steps. UA DIP, URINE (POC)on 2021 BILIRUBIN UA (POCT) Negative Negative [facility] CLARITY UA (POCT) Cloudy [facility] COLOR UA (POCT) Dark yellow [facility] GLUCOSE UA (POCT) Negative Negative mg/dL [facility] HEMOGLOBIN/BLOOD UA (POCT) Small Abnormal Negative [facility] KETONE UA (POCT) Negative Negative mg/dL [facility] LEUKOCYTES UA (POCT) Large Abnormal Negative [facility] NITRITE UA (POCT) Negative Negative [facility] PH UA (POCT) 6.0 4.5 - 8.0 [facility] Protein Ql (U) 100 mg/dL Abnormal Negative mg/dL [facility] SPECIFIC GRAVITY UA (POCT) 1.020 1.005 - 1.030 [facility] UROBILINOGEN UA (POCT) 0.2 E.U./dL Umm l E.U./dL [facility] XR CHEST 2V FRONTAL/LATon XR CHEST 2V FRONTAL/LAT * * *Final Repor t* * * DATE OF EXAM: Apr 05 2022 2:02PM [id number] - XR CHEST 2V FRONTAL/LAT / PROCEDURE REASON: Acute cough * * * * Physician Interpretation * * * * EXAMINATION: CHEST RADIOGRAPH (2 VIEW FRONTAL and LATERAL) CLINICAL HISTORY: Acute cough MQ: XC2_6 EXAM DATE/TIME: 04/05/2022 2:02 PM COMPARISON: Chest x-ray dated May 29, 2013 RESULT: Lines, tubes, and devices: None. Lungs [...] evaluation with contrast-enhanced CT chest is advised. ACTIONABLE RESULT: FOLLOW-UP Acuity: Actionable Findings: Thoracic-Lung nodules Routing code: RI_1 Recommendation: CT Chest W IVCON Time Frame: as soon as possible, when the patient's clinical state allows. COMMUNICATION: Results will be communicated with the ordering provider via [employer] staff message or phone message by [employer] within 2 business days of report finalization. Algorithms for management of incidental imaging findings can be found on the [facility] Intranet Sharepoint site at: [email or web address] [email or web address]%20Inc idental%20Findi ngs%20at%20Imaging/F orms/AllItems.aspx Assistant Professor Of Radiology: JONATHAN Transcribe Date/Time: Apr 05 2022 2:11P Dictated by : SANDEEP ORTIZ MD This examination was interpreted and the report reviewed and electronically signed by: SANDEEP ORTIZ MD on Apr 05 2022 2:13PM EST [id number] ACTIONABLE Invalid Interpretation Code [facility] XR Chest PA and LateralOrder ed By: [facility] Provider on 04-05-2022 Interpretation and review of laboratory results [facility] X[facility] Chest PA and Lateralon IMPRESSION: 4.5 cm right upper lobe round mass. Findings suspect for neoplasm until proven otherwise. Further evaluation with contrast-enhanced CT chest is advised. ACTIONABLE RESULT: FOLLOW-UP Acuity: Actionable Findings: Thoracic-Lung nodules Routing code: RI_1 Recommendation: CT Chest W IVCON Time Frame: as soon as possible, when the patient's clinical state allows. COMMUNICATION: Results will be communicated with the ordering provider via [employer] staff message or phone message by [employer] within 2 business days of report finalization. Algorithms for management of incidental imaging findings can be found on the [facility] Intranet Sharepoint site at: [email or web address] [email or web address]%20Inc idental%20Findi ngs%20at%20Imaging/F orms/AllItems.aspx Assistant Professor Of Radiology: JONATHAN Transcribe Date/Time: Apr 05 2022 2:11P Dictated by : SANDEEP ORTIZ MD This examination was interpreted and the report reviewed and electronically signed by: SANDEEP ORTIZ MD on Apr 05 2022 2:13PM [facility] DIVISION OF RADIOLOGY * * *Final Report* * * DATE OF EXAM: Apr 05 2022 2:02PM [id number] - XR CHEST 2V FRONTAL/LAT / PROCEDURE REASON: Acute cough * * * * Physician Interpretation * * * * EXAMINATION: CHEST RADIOGRAPH (2 VIEW FRONTAL & LATERAL) CLINICAL HISTORY: Acute cough MQ: XC2_6 EXAM DATE/TIME: 04/05/2022 2:02 PM COMPARISON: Chest x-ray dated May 29, 2013 RESULT: Lines, tubes, and devices: None. Lungs and pleura: There is a round approximately 4.5 cm mass in the region of the right upper lobe. No pleural effusion or pneumothorax. Cardiomediastinal silhouette: Stable cardiomediastinal silhouette with postsurgical changes from median sternotomy/CABG procedure. Bones and soft tissues: Degenerative changes are present within the thoracic spine. DIVISION OF RADIOLOGY Provider, [facility] [place] - 04/05/2022 * * *Final Report* * * DATE OF EXAM: Apr 05 2022 2:02PM [id number] - XR CHEST 2V FRONTAL/LAT / PROCEDURE REASON: Acute cough * * * * Physician Interpretation * * * * EXAMINATION: CHEST RADIOGRAPH (2 VIEW FRONTAL & LATERAL) CLINICAL HISTORY: Acute cough MQ: XC2_6 EXAM DATE/TIME: 04/05/2022 2:02 PM COMPARISON: Chest x-ray dated May 29, 2013 RESULT: Lines, tubes, and devices: None. Lungs and pleura: There is a round approximately 4.5 cm mass in the region of the right upper lobe. No pleural effusion or pneumothorax. Cardiomediastinal silhouette: Stable cardiomediastinal silhouette with postsurgical changes from median sternotomy/CABG procedure. Bones and soft tissues: Degenerative changes are present within the thoracic spine. IMPRESSION IMPRESSION: 4.5 cm right upper lobe round mass. Findings suspect for neoplasm until proven otherwise. Further evaluation with contrast-enhanced CT chest is advised. ACTIONABLE RESULT: FOLLOW-UP Acuity: Actionable Findings: Thoracic-Lung nodules Routing code: RI_1 Recommendation: CT Chest W IVCON Time Frame: as soon as possible, when the patient's clinical state allows. COMMUNICATION: Results will be communicated with the ordering provider via [employer] staff message or phone message by [facility] [employer] [facility] within 2 business days of report finalization. Algorithms for management of incidental imaging findings can be found on the [facility] Intranet Sharepoint site at: [email or web address] links/Managing%20Inc idental%20Findi ngs%20at%20Imaging/F orms/AllItems.aspx Assistant Professor Of Radiology: JONATHAN Transcribe Date/Time: Apr 05 2022 2:11P Dictated by : SANDEEP ORTIZ MD This examination was interpreted and the report reviewed and electronically signed by: SANDEEP ORTIZ MD on Apr 05 2022 2:13PM EST [facility] Radiology Study observation (narrative) [facility] Anaerobic culture Bacteria identified Anaer cx Nom (Unsp spec) No anaerobic bacteria isolated. [facility] Work Phone: Bacteria identified Anaer cx Nom (Unsp spec) Anaerobic Culture Anaerobic cocci [facility] Work Phone: Bacteria identified Cx Nom ( Wound) Wound Culture Staphylococcus pseudintermediu [facility] Work Phone: Wound Culture Staphylococcus saprophyticus [facility] Work Phone: Gram stain for investigation of transfusion reaction Microscopic observation Gram stain Nom (Unsp spec) [facility] Work Phone: Vital Signs Date Time Vital Sign Value Performing Clinician Facility 07-16-2025 20:49-0400 Body temperature 98.6 [degF] Dr. Tonio Fajardo DO Work Phone: [facility] 03-04-2025 20:49-0400 Diastolic blood pressure 70 mm[Hg] Dr. Tonio Fajardo DO Work Phone: [facility] 03-04-2025 20:49-0400 Heart rate 114 /min Dr. Tonio Fajardo DO Work Phone: [facility] 03-04-2025 20:49-0400 Respiratory rate 20 /min Dr. Tonio Fajardo DO Work Phone: [facility] 03-04-2025 20:49-0400 SaO2% (BldA) [Mass fraction] 100 % Dr. Tonio Fajardo DO Work Phone: [facility] 03-04-2025 20:49-0400 Systolic blood pressure 153 mm[Hg] Dr. Tonio Fajardo DO Work Phone: [facility] 03-04-2025 20:00-0400 Inhaled oxygen flow rate 4 L/min Dr. Tonio Fajardo DO Work Phone: [facility] 03-04-2025 15:01-0400 Body height 167.[address] Tonio Fajardo DO Work Phone: [facility] 03-04-2025 15:01-0400 Body mass index (BMI) [Ratio] 25.9 kg/m2 Dr. Tonio Fajardo DO Work Phone: [facility] 03-04-2025 15:01-0400 Body weight 73.[address] Tonio Fajardo DO Work Phone: [facility] 11-06-2024 14:45-0400 Body height 167.[address] Tonio Fajardo DO Work Phone: [facility] 11-06-2024 14:45-0400 Body mass index (BMI) [Ratio] 28.5 kg/m2 Dr. Tonio Fajardo DO Work Phone: [facility] 11-06-2024 14:45-0400 Body temperature 98.5 [degF] Dr. Tonio Fajardo DO Work Phone: [facility] 11-06-2024 14:45-0400 Body weight 80.[address] Tonio Fajardo DO Work Phone: [facility] 11-06-2024 14:45-0400 Diastolic blood pressure 55 mm[Hg] Dr. Tonio Fajardo DO Work Phone: [facility] 11-06-2024 14:45-0400 Heart rate 55 /min Dr. Tonio Fajardo DO Work Phone: [facility] 11-06-2024 14:45-0400 Respiratory rate 18 /min Dr. Tonio Fajardo DO Work Phone: [facility] 11-06-2024 14:45-0400 SaO2% (BldA) [Mass fraction] 95 % Dr. Tonio Fajardo DO Work Phone: [facility] 11-06-2024 14:45-0400 Systolic blood pressure 116 mm[Hg] Dr. Tonio Fajardo DO Work Phone: [facility] 10-23-2024 09:06-0500 Body mass index (BMI) [Ratio] 28.5 kg/m2 Dr. Tonio Fajardo DO Work Phone: [facility] 10-23-2024 09:06-0500 Body temperature 97.4 [degF] Dr. Tonio Fajardo DO Work Phone: [facility] 10-23-2024 09:06-0500 Body weight 80.[address] Tonio Fajardo DO Work Phone: [facility] 10-23-2024 09:06-0500 Diastolic blood pressure 56 mm[Hg] Dr. Tonio Fajardo DO Work Phone: [facility] 10-23-2024 09:06-0500 Heart rate 52 /min Dr. Tonio Fajardo DO Work Phone: [facility] 10-23-2024 09:06-0500 Inhaled oxygen flow rate 3 L/min Dr. Tonio Fajardo DO Work Phone: [facility] 10-23-2024 09:06-0500 Respiratory rate 26 /min Dr. Tonio Fajardo DO Work Phone: [facility] 10-23-2024 09:06-0500 SaO2% (BldA) [Mass fraction] 97 % Dr. Tonio Fajardo DO Work Phone: [facility] 10-23-2024 09:06-0500 Systolic blood pressure 128 mm[Hg] Dr. Tonio Fajardo DO Work Phone: [facility] 10-16-2024 13:24-0500 Body height 167.[address] Tonio Fajardo DO Work Phone: [facility] 10-16-2024 13:24-0500 Body weight 78.[address] Tonio Fajardo DO Work Phone: [facility] 10-16-2024 13:24-0500 Heart rate 98 /min Dr. Tonio Fajardo DO Work Phone: [facility] 10-16-2024 13:24-0500 Inhaled oxygen flow rate 2 L/min Dr. Tonio Fajardo DO Work Phone: [facility] 10-16-2024 13:24-0500 SaO2% (BldA) [Mass fraction] 96 % Dr. Tonio Fajardo DO Work Phone: [facility] 09-25-2024 12:59-0500 Body mass index (BMI) [Ratio] 27.7 kg/m2 Dr. Tonio Fajardo DO Work Phone: [facility] 09-25-2024 12:59-0500 Body weight 80.[address] Tonio Fajardo DO Work Phone: [facility] 09-25-2024 12:59-0500 Diastolic blood pressure 75 mm[Hg] Dr. Tonio Fajardo DO Work Phone: [facility] 09-25-2024 12:59-0500 Heart rate 99 /min Dr. Tonio Fajardo DO Work Phone: [facility] 09-25-2024 12:59-0500 Respiratory rate 18 /min Dr. Tonio Fajardo DO Work Phone: [facility] 09-25-2024 12:59-0500 SaO2% (BldA) [Mass fraction] 90 % Dr. Tonio Fajardo DO Work Phone: [facility] 09-25-2024 12:59-0500 Systolic blood pressure 120 mm[Hg] Dr. Tonio Fajardo DO Work Phone: [facility] 11-12-2023 13:22-0400 Body height 170.[address] Tonio Fajardo Work Phone: [facility] 11-12-2023 13:22-0400 Body mass index (BMI) [Ratio] 28 kg/m2 Dr. Tonio Fajardo Work Phone: [facility] 11-12-2023 13:22-0400 Body temperature 97.9 [degF] Dr. Tonio Fajardo Work Phone: [facility] 11-12-2023 13:22-0400 Body weight 81.[address] Tonio Fajardo Work Phone: [facility] 11-12-2023 13:22-0400 Diastolic blood pressure 62 mm[Hg] Dr. Tonio Fajardo Work Phone: [facility] 11-12-2023 13:22-0400 Heart rate 103 /min Dr. Tonio Fajardo Work Phone: [facility] 11-12-2023 13:22-0400 Respiratory rate 18 /min Dr. Tonio Fajardo Work Phone: [facility] 11-12-2023 13:22-0400 SaO2% (BldA) [Mass fraction] 98 % Dr. Tonio Fajardo Work Phone: [facility] 11-12-2023 13:22-0400 Systolic blood pressure 97 mm[Hg] Dr. Tonio Fajardo Work Phone: [facility] 10-31-2023 12:05-0400 Body mass index (BMI) [Ratio] 27.3 kg/m2 Dr. Tonio Fajardo Work Phone: [facility] 10-31-2023 12:05-0400 Body temperature 98.2 [degF] Dr. Tonio Fajrado Work Phone: [facility] 10-31-2023 12:05-0400 Body weight 79.[address] Tonio Fajardo Work Phone: [facility] 10-31-2023 12:05-0400 Diastolic blood pressure 71 mm[Hg] Dr. Tonio Fajardo Work Phone: [facility] 10-31-2023 12:05-0400 Heart rate 78 /min Dr. Tonio Fajardo Work Phone: [facility] 10-31-2023 12:05-0400 Respiratory rate 18 /min Dr. Tonio Fajardo Work Phone: [facility] 10-31-2023 12:05-0400 SaO2% (BldA) [Mass fraction] 94 % Dr. Tonio Fajardo Work Phone: [facility] 10-31-2023 12:05-0400 Systolic blood pressure 119 mm[Hg] Dr. Tonio Fajardo Work Phone: [facility] 10-18-2023 14:51-0500 Body mass index (BMI) [Ratio] 28 kg/m2 Dr. Tonio Fajardo Work Phone: [facility] 10-18-2023 14:51-0500 Body temperature 98.9 [degF] Dr. Tonio Fajardo Work Phone: [facility] 10-18-2023 14:51-0500 Body weight 81.[address] Tonio Fajardo Work Phone: [facility] 10-18-2023 14:51-0500 Diastolic blood pressure 60 mm[Hg] Dr. Tonio Fajardo Work Phone: [facility] 10-18-2023 14:51-0500 Heart rate 98 /min Dr. Tonio Fajardo Work Phone: [facility] 10-18-2023 14:51-0500 Respiratory rate 18 /min Dr. Tonio Fajardo Work Phone: [facility] 10-18-2023 14:51-0500 SaO2% (BldA) [Mass fraction] 96 % Dr. Toino Fajardo Work Phone: [facility] 10-18-2023 14:51-0500 Systolic blood pressure 114 mm[Hg] Dr. Tonio Fajardo Work Phone: [facility] 08-29-2023 12:52-0500 Body height 170.[address] Tonio Fajardo Work Phone: [facility] 08-29-2023 12:52-0500 Body mass index (BMI) [Ratio] 27.8 kg/m2 Dr. Tonio Fajardo Work Phone: [facility] 08-29-2023 12:52-0500 Body weight 80.[address] Tonio Fajardo Work Phone: [facility] 08-29-2023 12:52-0500 Diastolic blood pressure 71 mm[Hg] Dr. Tonio Fajardo Work Phone: [facility] 08-29-2023 12:52-0500 Heart rate 95 /min Dr. Tonio Fajardo Work Phone: [facility] 08-29-2023 12:52-0500 Respiratory rate 18 /min Dr. Tonio Fajardo Work Phone: [facility] 08-29-2023 12:52-0500 SaO2% (BldA) [Mass fraction] 97 % Dr. Tonio Fajardo Work Phone: [facility] 08-29-2023 12:52-0500 Systolic blood pressure 111 mm[Hg] Dr. Tonio Fajardo Work Phone: [facility] 07-25-2023 07:50-0500 Body height 170.[address] Tonio Fajardo Work Phone: [facility] 07-25-2023 07:50-0500 Body mass index (BMI) [Ratio] 29.4 kg/m2 Dr. Tonio Fajardo Work Phone: [facility] 07-25-2023 07:50-0500 Body temperature 96.2 [degF] Dr. Tonio Fajardo Work Phone: [facility] 07-25-2023 07:50-0500 Body weight 85.[address] Tonio Fajardo Work Phone: [facility] 07-25-2023 07:50-0500 Diastolic blood pressure 75 mm[Hg] Dr. Tonio Fajardo Work Phone: [facility] 07-25-2023 07:50-0500 Heart rate 53 /min Dr. Tonio Fajardo Work Phone: [facility] 07-25-2023 07:50-0500 Respiratory rate 20 /min Dr. Tonio Fajardo Work Phone: [facility] 07-25-2023 07:50-0500 SaO2% (BldA) [Mass fraction] 82 % Dr. Tonio Fajardo Work Phone: [facility] 07-25-2023 07:50-0500 Systolic blood pressure 119 mm[Hg] Dr. Tonio Fajardo Work Phone: [facility] 06-08-2023 14:33-0400 Body temperature 97.1 [degF] Dr. Tonio Fajardo Work Phone: [facility] 06-08-2023 14:33-0400 Diastolic blood pressure 67 mm[Hg] Dr. Tonio Fajardo Work Phone: [facility] 06-08-2023 14:33-0400 Heart rate 103 /min Dr. Tonio Fajardo Work Phone: [facility] 06-08-2023 14:33-0400 Respiratory rate 14 /min Dr. Tonio Fajardo Work Phone: [facility] 06-08-2023 14:33-0400 SaO2% (BldA) [Mass fraction] 93 % Dr. Tonio Fajardo Work Phone: [facility] 06-08-2023 14:33-0400 Systolic blood pressure 133 mm[Hg] Dr. Tonio Fajardo Work Phone: [facility] 06-08-2023 12:20-0400 Body height 170.[address] Tonio Fajardo Work Phone: [facility] 06-08-2023 12:20-0400 Body mass index (BMI) [Ratio] 29.3 kg/m2 Dr. Tonio Fajardo Work Phone: [facility] 06-08-2023 12:20-0400 Body weight [address] Tonio Fajardo Work Phone: [facility] 05-02-2023 13:50-0400 Diastolic blood pressure 63 mm[Hg] Dr. Tonio Fajardo Work Phone: [facility] 05-02-2023 13:50-0400 Heart rate 97 /min Dr. Tonio Fajardo Work Phone: [facility] 05-02-2023 13:50-0400 Respiratory rate 18 /min Dr. Tonio Fajardo Work Phone: [facility] 05-02-2023 13:50-0400 Systolic blood pressure 113 mm[Hg] Dr. Tonio Fajardo Work Phone: [facility] 04-25-2023 14:04-0400 Body temperature 97.9 [degF] Dr. Tonio Fajardo Work Phone: [facility] 04-18-2023 13:24-0400 Body temperature 97.5 [degF] Dr. Tonio Fajardo Work Phone: [facility] 04-18-2023 13:24-0400 Diastolic blood pressure 77 mm[Hg] Dr. Tonio Fajardo Work Phone: [facility] 04-18-2023 13:24-0400 Heart rate 109 /min Dr. Tonio Fajardo Work Phone: [facility] 04-18-2023 13:24-0400 Respiratory rate 16 /min Dr. Tonio Fajardo Work Phone: [facility] 04-18-2023 13:24-0400 Systolic blood pressure 141 mm[Hg] Dr. Tonio Fajardo Work Phone: [facility] 04-17-2023 11:08-0400 Body height 167.[address] Tonio Fajardo Work Phone: [facility] 04-17-2023 11:08-0400 Body mass index (BMI) [Ratio] 30.2 kg/m2 Dr. Tonio Fajardo Work Phone: [facility] 04-17-2023 11:08-0400 Body temperature 98.6 [degF] Dr. Tonio Fajardo Work Phone: [facility] 04-17-2023 11:08-0400 Body weight 84.[address] Tonio Fajardo Work Phone: [facility] 04-17-2023 11:08-0400 Diastolic blood pressure 87 mm[Hg] Dr. Tonio Fajardo Work Phone: [facility] 04-17-2023 11:08-0400 Heart rate 87 /min Dr. Tonio Fajardo Work Phone: [facility] 04-17-2023 11:08-0400 Respiratory rate 18 /min Dr. Tonio Fajardo Work Phone: [facility] 04-17-2023 11:08-0400 SaO2% (BldA) [Mass fraction] 95 % Dr. Tonio Fajardo Work Phone: [facility] 04-17-2023 11:08-0400 Systolic blood pressure 130 mm[Hg] Dr. Tonio Fajardo Work Phone: [facility] 04-02-2023 11:24-0400 Body temperature 98.6 [degF] Dr. Tonio Fajardo Work Phone: [facility] 04-02-2023 11:24-0400 Diastolic blood pressure 55 mm[Hg] Dr. Tonio Fajardo Work Phone: [facility] 04-02-2023 11:24-0400 Heart rate 101 /min Dr. Tonio Fajardo Work Phone: [facility] 04-02-2023 11:24-0400 Respiratory rate 20 /min Dr. Tonio Fajardo Work Phone: [facility] 04-02-2023 11:24-0400 Systolic blood pressure 114 mm[Hg] Dr. Tonio Fajardo Work Phone: [facility] 03-19-2023 10:28-0400 Body temperature 98.2 [degF] Dr. Tonio Fajardo Work Phone: [facility] 03-19-2023 10:28-0400 Diastolic blood pressure 59 mm[Hg] Dr. Tonio Fajardo Work Phone: [facility] 03-19-2023 10:28-0400 Heart rate 106 /min Dr. Tonio Fajardo Work Phone: [facility] 03-19-2023 10:28-0400 Respiratory rate 20 /min Dr. Tonio Fajardo Work Phone: [facility] 03-19-2023 10:28-0400 Systolic blood pressure 120 mm[Hg] Dr. Tonio Fajardo Work Phone: [facility] 02-05-2023 13:10-0400 Body temperature 97.6 [degF] Dr. Tonio Fajardo Work Phone: [facility] 02-05-2023 13:10-0400 Diastolic blood pressure 76 mm[Hg] Dr. Tonio Fajardo Work Phone: [facility] 02-05-2023 13:10-0400 Heart rate 109 /min Dr. Tonio Fajardo Work Phone: [facility] 02-05-2023 13:10-0400 Respiratory rate 18 /min Dr. Tonio Fajardo Work Phone: [facility] 02-05-2023 13:10-0400 Systolic blood pressure 160 mm[Hg] Dr. Tonio Fajardo Work Phone: [facility] 01-08-2023 13:37-0400 Body temperature 96.7 [degF] Dr. Tonio Fajardo Work Phone: [facility] 01-08-2023 13:37-0400 Diastolic blood pressure 46 mm[Hg] Dr. Tonio Fajardo Work Phone: [facility] 01-08-2023 13:37-0400 Heart rate 111 /min Dr. Tonio Fajardo Work Phone: [facility] 01-08-2023 13:37-0400 Systolic blood pressure 121 mm[Hg] Dr. Tonio Fajardo Work Phone: [facility] 12-31-2022 00:58-0400 Body temperature 98.7 [degF] Dr. Tonio Fajardo Work Phone: [facility] 12-31-2022 00:58-0400 Diastolic blood pressure 59 mm[Hg] Dr. Tonio Fajardo Work Phone: [facility] 12-31-2022 00:58-0400 Heart rate 111 /min Dr. Tonio Fajardo Work Phone: [facility] 12-31-2022 00:58-0400 Respiratory rate 26 /min Dr. Tonio Fajardo Work Phone: [facility] 12-31-2022 00:58-0400 SaO2% (BldA) [Mass fraction] 93 % Dr. Tonio Fajardo Work Phone: [facility] 12-31-2022 00:58-0400 Systolic blood pressure 131 mm[Hg] Dr. Tonio Fajardo Work Phone: [facility] 12-30-2022 22:36-0400 Body height 167.[address] Tonio Fajardo Work Phone: [facility] 12-30-2022 22:36-0400 Body mass index (BMI) [Ratio] 30.5 kg/m2 Dr. Tonio Fajardo Work Phone: [facility] 12-30-2022 22:36-0400 Body weight 85.[address] Tonio Fajardo Work Phone: [facility] 12-25-2022 14:53-0400 Body temperature 97.7 [degF] Dr. Tonio Fajardo Work Phone: [facility] 12-25-2022 14:53-0400 Diastolic blood pressure 51 mm[Hg] Dr. Tonio Fajardo Work Phone: [facility] 12-25-2022 14:53-0400 Heart rate 110 /min Dr. Tonio Fajardo Work Phone: [facility] 12-25-2022 14:53-0400 Respiratory rate 18 /min Dr. Tonio Fajardo Work Phone: [facility] 12-25-2022 14:53-0400 Systolic blood pressure 101 mm[Hg] Dr. Tonio Fajardo Work Phone: [facility] 12-12-2022 10:49-0400 Body height 167.[address] Tonio Fajardo Work Phone: [facility] 12-12-2022 10:49-0400 Body mass index (BMI) [Ratio] 29.7 kg/m2 Dr. Tonio Fajardo Work Phone: [facility] 12-12-2022 10:49-0400 Body temperature 97.4 [degF] Dr. Tonio Fajardo Work Phone: [facility] 12-12-2022 10:49-0400 Body weight 83.[address] Tonio Fajardo Work Phone: [facility] 12-12-2022 10:49-0400 Diastolic blood pressure 71 mm[Hg] Dr. Tonio Fajardo Work Phone: [facility] 12-12-2022 10:49-0400 Heart rate 114 /min Dr. Tonio Fajardo Work Phone: [facility] 12-12-2022 10:49-0400 Respiratory rate 18 /min Dr. Tonio Fajardo Work Phone: [facility] 12-12-2022 10:49-0400 SaO2% (BldA) [Mass fraction] 96 % Dr. Tonio Fajardo Work Phone: [facility] 12-12-2022 10:49-0400 Systolic blood pressure 135 mm[Hg] Dr. Tonio Fajardo Work Phone: [facility] 12-11-2022 13:12-0400 Body temperature 96.2 [degF] Dr. Tonio Fajardo Work Phone: [facility] 12-11-2022 13:12-0400 Diastolic blood pressure 87 mm[Hg] Dr. Tonio Fajardo Work Phone: [facility] 12-11-2022 13:12-0400 Heart rate 107 /min Dr. Tonio Fajardo Work Phone: [facility] 12-11-2022 13:12-0400 Respiratory rate 20 /min Dr. Tonio Fajardo Work Phone: [facility] 12-11-2022 13:12-0400 Systolic blood pressure 110 mm[Hg] Dr. Tonio Fajardo Work Phone: [facility] 11-16-2022 13:13-0400 Diastolic blood pressure 49 mm[Hg] Dr. Tonio Fajardo Work Phone: [facility] 11-16-2022 13:13-0400 Heart rate 82 /min Dr. Tonio Fajardo Work Phone: [facility] 11-16-2022 13:13-0400 Respiratory rate 16 /min Dr. Tonio Fajardo Work Phone: [facility] 11-16-2022 13:13-0400 Systolic blood pressure 125 mm[Hg] Dr. Tonio Fajardo Work Phone: [facility] 11-08-2022 09:52-0400 Body temperature 97.3 [degF] Dr. Tonio Fajardo Work Phone: [facility] 10-16-2022 14:07-0500 Body height 167.[address] Tonio Fajardo Work Phone: [facility] 10-16-2022 14:05-0500 Body mass index (BMI) [Ratio] 29.8 kg/m2 Dr. Tonio Fajardo Work Phone: [facility] 10-16-2022 14:05-0500 Body temperature 97.6 [degF] Dr. Tonio Fajardo Work Phone: [facility] 10-16-2022 14:05-0500 Body weight 83.[address] Tonio Fajardo Work Phone: [facility] 10-16-2022 14:05-0500 Diastolic blood pressure 89 mm[Hg] Dr. Tonio Fajardo Work Phone: [facility] 10-16-2022 14:05-0500 Heart rate 78 /min Dr. Tonio Fajardo Work Phone: [facility] 10-16-2022 14:05-0500 Respiratory rate 18 /min Dr. Tonio Fajardo Work Phone: [facility] 10-16-2022 14:05-0500 SaO2% (BldA) [Mass fraction] 94 % Dr. Tonio Fajardo Work Phone: [facility] 10-16-2022 14:05-0500 Systolic blood pressure 145 mm[Hg] Dr. Tonio Fajardo Work Phone: [facility] 10-16-2022 13:24-0500 Body mass index (BMI) [Ratio] 29.8 kg/m2 Dr. Tonio Fajardo Work Phone: [facility] 10-16-2022 13:24-0500 Body temperature 98.6 [degF] Dr. Tonio Fajardo Work Phone: [facility] 10-16-2022 13:24-0500 Body weight 83.[address] Tonio Fajardo Work Phone: [facility] 10-16-2022 13:24-0500 Diastolic blood pressure 74 mm[Hg] Dr. Tonio Fajardo Work Phone: [facility] 10-16-2022 13:24-0500 Heart rate 75 /min Dr. Tonio Fajardo Work Phone: [facility] 10-16-2022 13:24-0500 Respiratory rate 18 /min Dr. Tonio Fajardo Work Phone: [facility] 10-16-2022 13:24-0500 SaO2% (BldA) [Mass fraction] 94 % Dr. Tonio Fajardo Work Phone: [facility] 10-16-2022 13:24-0500 Systolic blood pressure 146 mm[Hg] Dr. Tonio Fajardo Work Phone: [facility] 10-09-2022 12:59-0500 Body temperature 97.5 [degF] Dr. Tonio Fajardo Work Phone: [facility] 10-09-2022 12:59-0500 Diastolic blood pressure 63 mm[Hg] Dr. Tonio Fajardo Work Phone: [facility] 10-09-2022 12:59-0500 Heart rate 89 /min Dr. Tonio Fajardo Work Phone: [facility] 10-09-2022 12:59-0500 Respiratory rate 22 /min Dr. Tonio Fajardo Work Phone: [facility] 10-09-2022 12:59-0500 Systolic blood pressure 148 mm[Hg] Dr. Tonio Fajardo Work Phone: [facility] 09-18-2022 09:49-0500 Body temperature 97.3 [degF] Dr. Tonio Fajardo Work Phone: [facility] 09-18-2022 09:49-0500 Diastolic blood pressure 44 mm[Hg] Dr. Tonio Fajardo Work Phone: [facility] 09-18-2022 09:49-0500 Heart rate 66 /min Dr. Tonio Fajardo Work Phone: [facility] 09-18-2022 09:49-0500 Respiratory rate 18 /min Dr. Tonio Fajardo Work Phone: [facility] 09-18-2022 09:49-0500 Systolic blood pressure 138 mm[Hg] Dr. Tonio Fajardo Work Phone: [facility] 08-15-2022 13:56-0500 Body temperature 97.1 [degF] Dr. Tonio Fajardo Work Phone: [facility] 08-15-2022 13:56-0500 Diastolic blood pressure 43 mm[Hg] Dr. Tonio Fajardo Work Phone: [facility] 08-15-2022 13:56-0500 Heart rate 73 /min Dr. Tonio Fajardo Work Phone: [facility] 08-15-2022 13:56-0500 Respiratory rate 16 /min Dr. Tonio Fajardo Work Phone: [facility] 08-15-2022 13:56-0500 Systolic blood pressure 139 mm[Hg] Dr. Tonio Fajardo Work Phone: [facility] 08-08-2022 14:00-0500 Body height 167.[address] Tonio Fajardo Work Phone: [facility] 08-08-2022 13:57-0500 Body mass index (BMI) [Ratio] 29.5 kg/m2 Dr. Tonio Fajardo Work Phone: [facility] 08-08-2022 13:57-0500 Body temperature 97.5 [degF] Dr. Tonio Faajrdo Work Phone: [facility] 08-08-2022 13:57-0500 Body weight 83.[address] Tonio Fajardo Work Phone: [facility] 08-08-2022 13:57-0500 Diastolic blood pressure 54 mm[Hg] Dr. Tonio Fajardo Work Phone: [facility] 08-08-2022 13:57-0500 Heart rate 67 /min Dr. Tonio Fajardo Work Phone: [facility] 08-08-2022 13:57-0500 Respiratory rate 16 /min Dr. Tonio Fajardo Work Phone: [facility] 08-08-2022 13:57-0500 SaO2% (BldA) [Mass fraction] 94 % Dr. Tonio Fajardo Work Phone: [facility] 08-08-2022 13:57-0500 Systolic blood pressure 109 mm[Hg] Dr. Tonio Fajardo Work Phone: [facility] 07-19-2022 14:30-0500 Body height 167.[address] Tonio Fajardo Work Phone: [facility] Work Phone: 07-19-2022 14:30-0500 Body mass index (BMI) [Ratio] 29 kg/m2 Dr. Tonio Fajardo Work Phone: [facility] 07-19-2022 14:30-0500 Body weight 81.[address] Tonio Fajardo Work Phone: [facility] 07-19-2022 14:30-0500 Diastolic blood pressure 62 mm[Hg] Dr. Tonio Fajardo Work Phone: [facility] 07-19-2022 14:30-0500 Heart rate 66 /min Dr. Tonio Fajardo Work Phone: [facility] 07-19-2022 14:30-0500 Respiratory rate 24 /min Dr. Tonio Fajardo Work Phone: [facility] 07-19-2022 14:30-0500 SaO2% (BldA) [Mass fraction] 97 % Dr. Tonio Fajardo Work Phone: [facility] 07-19-2022 14:30-0500 Systolic blood pressure 117 mm[Hg] Dr. Tonio Fajardo Work Phone: [facility] 07-18-2022 13:29-0500 Body temperature 97.1 [degF] Dr. Tonio Fajardo Work Phone: [facility] 07-18-2022 13:29-0500 Diastolic blood pressure 57 mm[Hg] Dr. Tonio Fajardo Work Phone: [facility] 07-18-2022 13:29-0500 Heart rate 83 /min Dr. Tonio Fajardo Work Phone: [facility] 07-18-2022 13:29-0500 Respiratory rate 16 /min Dr. Tonio Fajardo Work Phone: [facility] 07-18-2022 13:29-0500 Systolic blood pressure 117 mm[Hg] Dr. Tonio Fajardo Work Phone: [facility] 07-17-2022 11:23-0500 Body temperature 98.3 [degF] Dr. Tonio Fajardo Work Phone: [facility] 07-17-2022 11:23-0500 Diastolic blood pressure 58 mm[Hg] Dr. Tonio Fajardo Work Phone: [facility] 07-17-2022 11:23-0500 Heart rate 63 /min Dr. Tonio Fajardo Work Phone: [facility] 07-17-2022 11:23-0500 Respiratory rate 16 /min Dr. Tonio Fajardo Work Phone: [facility] 07-17-2022 11:23-0500 SaO2% (BldA) [Mass fraction] 97 % Dr. Tonio Fajardo Work Phone: [facility] 07-17-2022 11:23-0500 Systolic blood pressure 107 mm[Hg] Dr. Tonio Fajardo Work Phone: [facility] 07-05-2022 14:00-0500 Body mass index (BMI) [Ratio] 29 kg/m2 Dr. Tonio Fajardo Work Phone: [facility] 07-05-2022 14:00-0500 Body temperature 96.9 [degF] Dr. Tonio Fajardo Work Phone: [facility] 07-05-2022 14:00-0500 Body weight 81.[address] Tonio Fajardo Work Phone: [facility] 07-05-2022 14:00-0500 Diastolic blood pressure 63 mm[Hg] Dr. Tonio Fajardo Work Phone: [facility] 07-05-2022 14:00-0500 Heart rate 66 /min Dr. Tonio Fajardo Work Phone: [facility] 07-05-2022 14:00-0500 Respiratory rate 16 /min Dr. Tonio Fajardo Work Phone: [facility] 07-05-2022 14:00-0500 SaO2% (BldA) [Mass fraction] 97 % Dr. Tonio Fajardo Work Phone: [facility] 07-05-2022 14:00-0500 Systolic blood pressure 156 mm[Hg] Dr. Tonio Fajardo Work Phone: [facility] 06-28-2022 14:11-0500 Body mass index (BMI) [Ratio] 29.6 kg/m2 Dr. Tonio Fajardo Work Phone: [facility] 06-28-2022 14:11-0500 Body temperature 97.1 [degF] Dr. Tonio Fajardo Work Phone: [facility] 06-28-2022 14:11-0500 Body weight 83.[address] Tonio Fajardo Work Phone: [facility] 06-28-2022 14:11-0500 Diastolic blood pressure 58 mm[Hg] Dr. Tonio Fajardo Work Phone: [facility] 06-28-2022 14:11-0500 Heart rate 77 /min Dr. Tonio Fajardo Work Phone: [facility] 06-28-2022 14:11-0500 Respiratory rate 16 /min Dr. Tonio Fajardo Work Phone: [facility] 06-28-2022 14:11-0500 SaO2% (BldA) [Mass fraction] 89 % Dr. Tonio Fajardo Work Phone: [facility] 06-28-2022 14:11-0500 Systolic blood pressure 124 mm[Hg] Dr. Tonio Fajardo Work Phone: [facility] 06-21-2022 13:57-0400 Body mass index (BMI) [Ratio] 29.8 kg/m2 Dr. Tonio Fajardo Work Phone: [facility] 06-21-2022 13:57-0400 Body temperature 97 [degF] Dr. Tonio Fajardo Work Phone: [facility] 06-21-2022 13:57-0400 Body weight 83.[address] Tonio Fajardo Work Phone: [facility] 06-21-2022 13:57-0400 Diastolic blood pressure 88 mm[Hg] Dr. Tonio Fajardo Work Phone: [facility] 06-21-2022 13:57-0400 Heart rate 70 /min Dr. Tonio Fajardo Work Phone: [facility] 06-21-2022 13:57-0400 Respiratory rate 18 /min Dr. Tonio Fajardo Work Phone: [facility] 06-21-2022 13:57-0400 SaO2% (BldA) [Mass fraction] 94 % Dr. Tonio Fajardo Work Phone: [facility] 06-21-2022 13:57-0400 Systolic blood pressure 139 mm[Hg] Dr. Tonio Fajardo Work Phone: [facility] 06-14-2022 13:55-0400 Body height 167.[address] Tonio Fajardo Work Phone: [facility] Work Phone: 06-14-2022 13:53-0400 Body mass index (BMI) [Ratio] 29.5 kg/m2 Dr. Tonio Fajardo Work Phone: [facility] 06-14-2022 13:53-0400 Body temperature 97 [degF] Dr. Tonio Fajardo Work Phone: [facility] 06-14-2022 13:53-0400 Body weight 83.[address] Tonio Fajardo Work Phone: [facility] 06-14-2022 13:53-0400 Diastolic blood pressure 61 mm[Hg] Dr. Tonio Fajardo Work Phone: [facility] 06-14-2022 13:53-0400 Heart rate 66 /min Dr. Tonio Fajardo Work Phone: [facility] 06-14-2022 13:53-0400 Respiratory rate 16 /min Dr. Tonio Fajardo Work Phone: [facility] 06-14-2022 13:53-0400 SaO2% (BldA) [Mass fraction] 94 % Dr. Tonio Fajardo Work Phone: [facility] 06-14-2022 13:53-0400 Systolic blood pressure 137 mm[Hg] Dr. Tonio Fajardo Work Phone: [facility] 06-12-2022 10:32-0400 Body temperature 97.3 [degF] Dr. Tonio Fajardo Work Phone: [facility] 06-12-2022 10:32-0400 Diastolic blood pressure 63 mm[Hg] Dr. Tonio Fajardo Work Phone: [facility] 06-12-2022 10:32-0400 Heart rate 59 /min Dr. Tonio Fajardo Work Phone: [facility] 06-12-2022 10:32-0400 Respiratory rate 18 /min Dr. Tonio Fajardo Work Phone: [facility] 06-12-2022 10:32-0400 Systolic blood pressure 149 mm[Hg] Dr. Tonio Fajardo Work Phone: [facility] 05-30-2022 14:08-0400 Body height 167.[address] Tonio Fajardo Work Phone: [facility] Work Phone: 05-30-2022 14:05-0400 Body mass index (BMI) [Ratio] 29.7 kg/m2 Dr. Tonio Fajardo Work Phone: [facility] 05-30-2022 14:05-0400 Body temperature 97 [degF] Dr. Tonio Fajardo Work Phone: [facility] 05-30-2022 14:05-0400 Body weight 83.[address] Tonio Fajardo Work Phone: [facility] 05-30-2022 14:05-0400 Diastolic blood pressure 64 mm[Hg] Dr. Tonio Fajardo Work Phone: [facility] 05-30-2022 14:05-0400 Heart rate 65 /min Dr. Tonio Fajardo Work Phone: [facility] 05-30-2022 14:05-0400 Respiratory rate 18 /min Dr. Tonio Fajardo Work Phone: [facility] 05-30-2022 14:05-0400 SaO2% (BldA) [Mass fraction] 95 % Dr. Tonio Fajardo Work Phone: [facility] 05-30-2022 14:05-0400 Systolic blood pressure 145 mm[Hg] Dr. Tonio Fajardo Work Phone: [facility] 05-29-2022 14:48-0400 Body temperature 97.6 [degF] Dr. Tonio Fajardo Work Phone: [facility] Work Phone: 05-29-2022 14:48-0400 Diastolic blood pressure 51 mm[Hg] Dr. Tonio Fajardo Work Phone: [facility] Work Phone: 05-29-2022 14:48-0400 Heart rate 75 /min Dr. Tonio Fajardo Work Phone: [facility] Work Phone: 05-29-2022 14:48-0400 Systolic blood pressure 158 mm[Hg] Dr. Tonio Fajardo Work Phone: [facility] Work Phone: 05-24-2022 14:31-0400 Body height 167.[address] Tonio Fajardo Work Phone: [facility] Work Phone: 05-24-2022 14:22-0400 Body mass index (BMI) [Ratio] 29.7 kg/m2 Dr. Tonio Fajardo Work Phone: [facility] 05-24-2022 14:22-0400 Body temperature 98.2 [degF] Dr. Tonio Fajardo Work Phone: [facility] 05-24-2022 14:22-0400 Body weight 83.[address] Tonio Fajardo Work Phone: [facility] 05-24-2022 14:22-0400 Diastolic blood pressure 74 mm[Hg] Dr. Tonio Fajardo Work Phone: [facility] 05-24-2022 14:22-0400 Heart rate 74 /min Dr. Tonio Fajardo Work Phone: [facility] 05-24-2022 14:22-0400 Respiratory rate 15 /min Dr. Tonio Fajardo Work Phone: [facility] 05-24-2022 14:22-0400 SaO2% (BldA) [Mass fraction] 96 % Dr. Tonio Fajardo Work Phone: [facility] 05-24-2022 14:22-0400 Systolic blood pressure 135 mm[Hg] Dr. Tonio Fajardo Work Phone: [facility] 05-24-2022 13:26-0400 Body temperature 96.7 [degF] Dr. Tonio Fajardo Work Phone: [facility] Work Phone: 05-24-2022 13:26-0400 Diastolic blood pressure 57 mm[Hg] Dr. Tonio Fajardo Work Phone: [facility] Work Phone: 05-24-2022 13:26-0400 Heart rate 81 /min Dr. Tonio Fajardo Work Phone: [facility] Work Phone: 05-24-2022 13:26-0400 Respiratory rate 18 /min Dr. Tonio Fajardo Work Phone: [facility] Work Phone: 05-24-2022 13:26-0400 Systolic blood pressure 141 mm[Hg] Dr. Tonio Fajardo Work Phone: [facility] Work Phone: 05-17-2022 15:07-0400 Body temperature 97.5 [degF] Dr. Tonio Fajardo Work Phone: [facility] Work Phone: 05-17-2022 15:07-0400 Diastolic blood pressure 63 mm[Hg] Dr. Tonio Fajardo Work Phone: [facility] Work Phone: 05-17-2022 15:07-0400 Heart rate 71 /min Dr. Tonio Fajardo Work Phone: [facility] Work Phone: 05-17-2022 15:07-0400 Respiratory rate 20 /min Dr. Tonio Fajardo Work Phone: [facility] Work Phone: 05-17-2022 15:07-0400 Systolic blood pressure 142 mm[Hg] Dr. Tonio Fajardo Work Phone: [facility] Work Phone: 05-11-2022 16:01-0400 Body height 167.[address] Tonio Fajardo Work Phone: [facility] Work Phone: 05-11-2022 15:54-0400 Body mass index (BMI) [Ratio] 29.4 kg/m2 Dr. Tonio Fajardo Work Phone: [facility] Work Phone: 05-11-2022 15:54-0400 Body temperature 98.4 [degF] Dr. Tonio Fajardo Work Phone: [facility] Work Phone: 05-11-2022 15:54-0400 Body weight 82.[address] Tonio Fajardo Work Phone: [facility] Work Phone: 05-11-2022 15:54-0400 Diastolic blood pressure 67 mm[Hg] Dr. Tonio Fajardo Work Phone: [facility] Work Phone: 05-11-2022 15:54-0400 Heart rate 63 /min Dr. Tonio Fajardo Work Phone: [facility] Work Phone: 05-11-2022 15:54-0400 Respiratory rate 16 /min Dr. Tonio Fajardo Work Phone: [facility] Work Phone: 05-11-2022 15:54-0400 SaO2% (BldA) [Mass fraction] 96 % Dr. Tonio Fajardo Work Phone: [facility] Work Phone: 05-11-2022 15:54-0400 Systolic blood pressure 100 mm[Hg] Dr. Tonio Fajardo Work Phone: [facility] Work Phone: 05-11-2022 08:32-0400 Body mass index (BMI) [Ratio] 29.4 kg/m2 Dr. Tonio Fajardo Work Phone: [facility] Work Phone: 05-11-2022 08:32-0400 Body temperature 97.2 [degF] Dr. Tonio Fajardo Work Phone: [facility] Work Phone: 05-11-2022 08:32-0400 Body weight 82.[address] Tonio Fajardo Work Phone: [facility] Work Phone: 05-11-2022 08:32-0400 Diastolic blood pressure 62 mm[Hg] Dr. Tonio Fajardo Work Phone: [facility] Work Phone: 05-11-2022 08:32-0400 Heart rate 73 /min Dr. Tonio Fajardo Work Phone: [facility] Work Phone: 05-11-2022 08:32-0400 Respiratory rate 20 /min Dr. Tonio Fajardo Work Phone: [facility] Work Phone: 05-11-2022 08:32-0400 SaO2% (BldA) [Mass fraction] 96 % Dr. Tonio Fajardo Work Phone: [facility] Work Phone: 05-11-2022 08:32-0400 Systolic blood pressure 145 mm[Hg] Dr. Tonio Fajardo Work Phone: [facility] Work Phone: 04-28-2022 11:40-0400 Body temperature 97.4 [degF] Dr. Tonio Fajardo Work Phone: [facility] Work Phone: 04-28-2022 11:40-0400 Diastolic blood pressure 46 mm[Hg] Dr. Tonio Fajardo Work Phone: [facility] Work Phone: 04-28-2022 11:40-0400 Heart rate 66 /min Dr. Tonio Fajardo Work Phone: [facility] Work Phone: 04-28-2022 11:40-0400 Respiratory rate 20 /min Dr. Tonio Fajardo Work Phone: [facility] Work Phone: 04-28-2022 11:40-0400 SaO2% (BldA) [Mass fraction] 96 % Dr. Tonio Fajardo Work Phone: [facility] Work Phone: 04-28-2022 11:40-0400 Systolic blood pressure 138 mm[Hg] Dr. Tonio Fajardo Work Phone: [facility] Work Phone: 04-28-2022 09:44-0400 Inhaled oxygen flow rate 2 L/min Dr. Tonio Fajardo Work Phone: [facility] Work Phone: 04-28-2022 08:15-0400 Body height 167.[address] Tonio Fajardo Work Phone: [facility] Work Phone: 04-28-2022 08:15-0400 Body mass index (BMI) [Ratio] 28 kg/m2 Dr. Tonio Fajardo Work Phone: [facility] Work Phone: 04-28-2022 08:15-0400 Body weight 78.[address] Tonio Fajardo Work Phone: [facility] Work Phone: 04-26-2022 13:47-0400 Body temperature 97 [degF] Dr. Tonio Fajardo Work Phone: [facility] Work Phone: 04-26-2022 13:47-0400 Diastolic blood pressure 33 mm[Hg] Dr. Tonio Fajardo Work Phone: [facility] Work Phone: 04-26-2022 13:47-0400 Heart rate 80 /min Dr. Tonio Fajardo Work Phone: [facility] Work Phone: 04-26-2022 13:47-0400 Respiratory rate 18 /min Dr. Tonio Fajardo Work Phone: [facility] Work Phone: 04-26-2022 13:47-0400 Systolic blood pressure 118 mm[Hg] Dr. Tonio Fajardo Work Phone: [facility] Work Phone: 04-14-2022 11:11-0400 Body height 167.[address] Tonio Fajardo Work Phone: [facility] Work Phone: 04-14-2022 11:11-0400 Body mass index (BMI) [Ratio] 30.7 kg/m2 Dr. Tonio Fajardo Work Phone: [facility] Work Phone: 04-14-2022 11:11-0400 Body temperature 95.8 [degF] Dr. Tonio Fajardo Work Phone: [facility] Work Phone: 04-14-2022 11:11-0400 Body weight 86.[address] Tonio Fajardo Work Phone: [facility] Work Phone: 04-14-2022 11:11-0400 Diastolic blood pressure 68 mm[Hg] Dr. Tonio Fajardo Work Phone: [facility] Work Phone: 04-14-2022 11:11-0400 Heart rate 34 /min Dr. Tonio Fajardo Work Phone: [facility] Work Phone: 04-14-2022 11:11-0400 Respiratory rate 16 /min Dr. Tonio Fajardo Work Phone: [facility] Work Phone: 04-14-2022 11:11-0400 SaO2% (BldA) [Mass fraction] 91 % Dr. Tonio Fajardo Work Phone: [facility] Work Phone: 04-14-2022 11:11-0400 Systolic blood pressure 163 mm[Hg] Dr. Tonio Fajardo Work Phone: [facility] Work Phone: 04-14-2022 10:36-0400 Body temperature 96.7 [degF] Dr. Tonio Fajardo Work Phone: [facility] Work Phone: 04-14-2022 10:36-0400 Diastolic blood pressure 71 mm[Hg] Dr. Tonio Fajardo Work Phone: [facility] Work Phone: 04-14-2022 10:36-0400 Heart rate 64 /min Dr. Tonio Fajardo Work Phone: [facility] Work Phone: 04-14-2022 10:36-0400 Respiratory rate 23 /min Dr. Tonio Fajardo Work Phone: [facility] Work Phone: 04-14-2022 10:36-0400 SaO2% (BldA) [Mass fraction] 94 % Dr. Tonio Fajardo Work Phone: [facility] Work Phone: 04-14-2022 10:36-0400 Systolic blood pressure 153 mm[Hg] Dr. Tonio Fajardo Work Phone: [facility] Work Phone: 04-14-2022 08:24-0400 Body mass index (BMI) [Ratio] 30.2 kg/m2 Dr. Tonio Fajardo Work Phone: [facility] Work Phone: 04-14-2022 08:24-0400 Body weight 85.[address] Tonio Fajardo Work Phone: [facility] Work Phone: 04-12-2022 13:50-0400 Body temperature 97.8 [degF] Dr. Tonio Fajardo Work Phone: [facility] Work Phone: 04-12-2022 13:50-0400 Diastolic blood pressure 74 mm[Hg] Dr. Tonio Fajardo Work Phone: [facility] Work Phone: 04-12-2022 13:50-0400 Heart rate 69 /min Dr. Tonio Fajardo Work Phone: [facility] Work Phone: 04-12-2022 13:50-0400 Respiratory rate 18 /min Dr. Tonio Fajardo Work Phone: [facility] Work Phone: 04-12-2022 13:50-0400 Systolic blood pressure 107 mm[Hg] Dr. Tonio Fajardo Work Phone: [facility] Work Phone: 04-05-2022 13:34-0400 Body temperature 101.61 [degF] Jessie Rodriguez INSERTING PRESS OPERATOR.CARPET YARN WINDER OPERATOR Work Phone: [facility] 04-05-2022 13:34-0400 Body weight 87.09 kg Jessie Ojeda-Kelvin INSERTING PRESS OPERATOR.CARPET YARN WINDER OPERATOR Work Phone: [facility] 04-05-2022 13:34-0400 Diastolic blood pressure 76 mm[Hg] Jessie Ojeda-Kelvin INSERTING PRESS OPERATOR.CARPET YARN WINDER OPERATOR Work Phone: [facility] 04-05-2022 13:34-0400 Heart rate 76 /min Jessie Prabitaler-Wood INSERTING PRESS OPERATOR.CARPET YARN WINDER OPERATOR Work Phone: [facility] 04-05-2022 13:34-0400 Respiratory rate 16 /min Jessie Prabitaler-Wood INSERTING PRESS OPERATOR.CARPET YARN WINDER OPERATOR Work Phone: [facility] 04-05-2022 13:34-0400 SaO2% (BldA) [Mass fraction] 94 % Jessie Prabitaler-Wood INSERTING PRESS OPERATOR.CARPET YARN WINDER OPERATOR Work Phone: [facility] 04-05-2022 13:34-0400 Systolic blood pressure 122 mm[Hg] Jessie Praisler-Wood INSERTING PRESS OPERATOR.CARPET YARN WINDER OPERATOR Work Phone: [facility] 03-01-2022 13:16-0400 Body temperature 97.6 [degF] Dr. Tonio Fajardo Work Phone: [facility] Work Phone: 03-01-2022 13:16-0400 Diastolic blood pressure 73 mm[Hg] Dr. Tonio Fajardo Work Phone: [facility] Work Phone: 03-01-2022 13:16-0400 Heart rate 70 /min Dr. Tonio Fajardo Work Phone: [facility] Work Phone: 03-01-2022 13:16-0400 Respiratory rate 18 /min Dr. Tonio Fajardo Work Phone: [facility] Work Phone: 03-01-2022 13:16-0400 Systolic blood pressure 141 mm[Hg] Dr. Tonio Fajardo Work Phone: [facility] Work Phone: 02-08-2022 13:06-0400 Body temperature 98.1 [degF] Dr. Tonio Fajardo Work Phone: [facility] Work Phone: 02-08-2022 13:06-0400 Diastolic blood pressure 63 mm[Hg] Dr. Tonio Fajardo Work Phone: [facility] Work Phone: 02-08-2022 13:06-0400 Heart rate 83 /min Dr. Tonio Fajardo Work Phone: [facility] Work Phone: 02-08-2022 13:06-0400 Respiratory rate 20 /min Dr. Tonio Fajardo Work Phone: [facility] Work Phone: 02-08-2022 13:06-0400 Systolic blood pressure 131 mm[Hg] Dr. Tonio Fajardo Work Phone: [facility] Work Phone: 01-17-2022 10:56-0400 Body height 167.[address] Tonio Fajardo Work Phone: [facility] Work Phone: 01-17-2022 10:56-0400 Body mass index (BMI) [Ratio] 31.9 kg/m2 Dr. Tonio Fajardo Work Phone: [facility] Work Phone: 01-17-2022 10:56-0400 Body weight 89.[address] Tonio Fajardo Work Phone: [facility] Work Phone: 01-17-2022 10:56-0400 Diastolic blood pressure 44 mm[Hg] Dr. Tonio Fajardo Work Phone: [facility] Work Phone: 01-17-2022 10:56-0400 Heart rate 64 /min Dr. Tonio Fajardo Work Phone: [facility] Work Phone: 01-17-2022 10:56-0400 Respiratory rate 22 /min Dr. Tonio Fajardo Work Phone: [facility] Work Phone: 01-17-2022 10:56-0400 SaO2% (BldA) [Mass fraction] 95 % Dr. Tonio Fajardo Work Phone: [facility] Work Phone: 01-17-2022 10:56-0400 Systolic blood pressure 101 mm[Hg] Dr. Tonio Fajardo Work Phone: [facility] Work Phone: 01-17-2022 10:56-0400 Body height 167.[address] Tonio Fajardo Work Phone: [facility] Work Phone: 01-17-2022 10:56-0400 Body mass index (BMI) [Ratio] 31.9 kg/m2 Dr. Tonio Fajardo Work Phone: [facility] Work Phone: 01-17-2022 10:56-0400 Body weight 89.[address] Tonio Fajardo Work Phone: [facility] Work Phone: 01-17-2022 10:56-0400 Diastolic blood pressure 44 mm[Hg] Dr. Tonio Fajardo Work Phone: [facility] Work Phone: 01-17-2022 10:56-0400 Heart rate 64 /min Dr. Tonio Fajardo Work Phone: [facility] Work Phone: 01-17-2022 10:56-0400 Respiratory rate 22 /min Dr. Tonio Fajardo Work Phone: [facility] Work Phone: 01-17-2022 10:56-0400 SaO2% (BldA) [Mass fraction] 95 % Dr. Tonio Fajardo Work Phone: [facility] Work Phone: 01-17-2022 10:56-0400 Systolic blood pressure 101 mm[Hg] Dr. Tonio Fajardo Work Phone: [facility] Work Phone: 01-04-2022 12:59-0400 Body temperature 96.4 [degF] Dr. Tonio Fajardo Work Phone: [facility] Work Phone: 01-04-2022 12:59-0400 Diastolic blood pressure 64 mm[Hg] Dr. Tonio Fajardo Work Phone: [facility] Work Phone: 01-04-2022 12:59-0400 Heart rate 70 /min Dr. Tonio Fajardo Work Phone: [facility] Work Phone: 01-04-2022 12:59-0400 Respiratory rate 16 /min Dr. Tonio Fajardo Work Phone: [facility] Work Phone: 01-04-2022 12:59-0400 Systolic blood pressure 135 mm[Hg] Dr. Tonio Fajardo Work Phone: [facility] Work Phone: 12-21-2021 13:10-0400 Body temperature 97 [degF] [facility] Work Phone: 12-21-2021 13:10-0400 Diastolic blood pressure 62 mm[Hg] [facility] Work Phone: 12-21-2021 13:10-0400 Heart rate 88 /min [facility] Work Phone: 12-21-2021 13:10-0400 Systolic blood pressure 173 mm[Hg] [facility] Work Phone: 12-18-2021 00:38-0400 Respiratory rate 16 /min [facility] Work Phone: 11-29-2021 13:03-0400 Body temperature 97.4 [degF] [facility] Work Phone: 11-29-2021 13:03-0400 Diastolic blood pressure 43 mm[Hg] [facility] Work Phone: 11-29-2021 13:03-0400 Heart rate 69 /min [facility] Work Phone: 11-29-2021 13:03-0400 Respiratory rate 16 /min [facility] Work Phone: 11-29-2021 13:03-0400 Systolic blood pressure 134 mm[Hg] [facility] Work Phone: 11-09-2021 13:07-0400 Body temperature 97 [degF] [facility] Work Phone: 11-09-2021 13:07-0400 Diastolic blood pressure 41 mm[Hg] [facility] Work Phone: 11-09-2021 13:07-0400 Heart rate 73 /min [facility] Work Phone: 11-09-2021 13:07-0400 Respiratory rate 18 /min [facility] Work Phone: 11-09-2021 13:07-0400 Systolic blood pressure 126 mm[Hg] [facility] Work Phone: Encounters Encounter Date Encounter Type Care Provider Facility Start: 03-04-2025 Evaluation and management of inpatient Dr. Nicola Lindsey DO -Progressive Care Unit Work Phone: Start: 11-06-[address] Russ Zamora MD -[facility] Start: 11-06-2024 End: 11-06-[address] Russ Zamora MD -[facility] Work Phone: Start: 11-06-2024 End: 11-06-2024 ambulatory Tonio Fajardo Facility:[facility] Start: 10-30-2024 End: 10-30-[address] Tonio Fajardo DO Work Phone: [facility] Work Phone: Start: 10-30-2024 End: 10-30-[address] Russ Zamora MD -Cat Scan, [facility] Work Phone: Start: 10-30-2024 End: 10-30-2024 ambulatory [facility] Facility:[facility] Start: 10-23-2024 End: 10-23-2024 Patient encounter procedure Lorie Mart NP-C -[facility] Work Phone: Start: 10-23-2024 End: 10-23-2024 ambulatory [facility] Facility:[facility] Start: 10-20-2024 End: 10-20-[address] Tonio Fajardo DO Work Phone: [facility] Work Phone: Start: 10-20-2024 End: 10-20-[address] Tonio Fajardo DO -[facility] Start: 10-20-2024 End: 10-20-2024 ambulatory Tonio Alex Facility:[facility] Start: 10-17-2024 ambulatory Lorie Mart NP Fac ility:[facility] Start: 10-17-2024 Non-patient / Non-visit Dr. Tyrell zuniga DO -[facility] Start: 10-16-2024 End: 10-16-[address] Tonio Fajardo DO Work Phone: [facility] Work Phone: Start: 10-16-2024 End: 10-16-2024 Patient encounter procedure Lorie Mart NP-C -Pulmonary Services/Neurology Work Phone: Start: 10-16-2024 End: 10-16-2024 ambulatory Lorie Mart NP Facility:[facility] Start: 09-25-2024 End: 09-25-2024 Patient encounter procedure Leslie Arriaga PA -[facility] Work Phone: Start: 09-25-2024 End: 09-25-2024 ambulatory [facility] Facility:[facility] Start: 09-25-2024 End: 09-25-2024 ambulatory Tonio Fajardo Facility:[facility] Start: 07-03-2024 End: 07-03-[address] Joaquim Suárez [facility] -Laboratory, Specimen Work Phone: Start: 07-03-2024 End: 07-03-2024 ambulatory Joaquim Suárez Facility:[facility] Start: 06-17-2024 End: 06-17-2024 ambulatory Joaquim Suárez Facility:[facility] Start: 05-05-2024 End: 05-05-2024 ambulatory [facility] Facility:[facility] Start: 04-28-2024 End: 04-28-2024 ambulatory [facility] Facility:[facility] Start: 03-27-2024 End: 03-27-2024 ambulatory Joaquim Farnam Facility:[facility] Start: 02-27-2024 ambulatory [facility] Facility: [facility] Start: 02-15-2024 End: 02-15-2024 ambulatory Lorie Mart NP Facility:[facility] Start: 02-04-2024 End: 02-04-2024 ambulatory Tonio Alex Facility:[facility] Start: 01-28-2024 End: 01-28-2024 ambulatory Tonio [facility] Facility:[facility] Start: 12-24-2023 End: 12-24-[address] Tonio Fajardo Work Phone: [facility] Work Phone: Start: 12-24-2023 End: 12-24-[address] Tonio Fajardo Work Phone: [facility]-Laboratory, Specimen Work Phone: Start: 12-24-2023 End: 12-24-2023 ambulatory Joaquim Suárez Facility:[facility] Start: 11-12-2023 End: 11-12-[address] Tonio Fajardo Work Phone: [facility] Work Phone: Start: 11-12-2023 End: 11-12-2023 ambulatory Tonio Fajardo Facility:[facility] Start: 11-06-[address] Tonio Fajardo Work Phone: [facility] Start: 10-31-2023 End: 10-31-[address] Tonio Fajardo Work Phone: [facility] Work Phone: Start: 10-18-2023 End: 10-18-[address] Tonio Fajardo Work Phone: [facility] Work Phone: Start: 10-12-2023 End: 10-12-[address] Tonio Fajardo Work Phone: [facility] Work Phone: Start: 10-12-2023 End: 10-12-[address] Tonio Fajardo Work Phone: [facility] Work Phone: Start: 08-29-2023 End: 08-29-[address] Tonio Fajardo Work Phone: [facility] Work Phone: Start: 08-22-2023 Non-patient / Non-visit Dr. Min Fajardo Work Phone: [facility] Start: 08-22-2023 End: 08-22-[address] [facility] Work [facility] Start: 07-26-2023 End: 07-26-[address] Tonio Fajardo Work Phone: [facility] Work Phone: Start: 07-26-2023 End: 07-26-[address] Tonio Fajardo Work Phone: [facility] Work Phone: Start: 07-25-2023 End: 07-25-[address] Tonio Fajardo Work Phone: [facility]-Pulmonary Medicine [facility] Work Phone: Start: 06-22-2023 End: 06-22-[address] Tonio Fajardo Work Phone: [facility] Work Phone: Start: 06-22-2023 End: 06-22-[address] Tonio Fajardo Work Phone: [facility]-Laboratory, Specimen Work Phone: Start: 06-08-2023 End: 06-08-2023 Admission to same day surgery center Dr. Tonio Fajardo Work Phone: [facility]-Surgical Day Care Start: 06-08-2023 End: 06-08-[address] Tonio Fajardo Work Phone: [facility] Work Phone: Start: 05-02-2023 End: 05-19-[address] [facility]io [facility]ardo [facility] Work Phone: Start: 04-20-2023 Non-patient / Non-visit Dr. Min Fajardo Work Phone: [facility] Start: 04-18-2023 End: 04-19-[address] Tonio Fajardo Work Phone: [facility] Work Phone: Start: 04-18-2023 End: 04-19-[address] Tonio Fajardo [facility] Work Phone: Start: 04-17-[address] Tonio Fajardo Work Phone: [facility] Start: 04-17-2023 End: 04-17-[address] Tonio Fajardo Work Phone: [facility] Work Phone: Start: 04-10-2023 End: 04-10-[address] Tonio Fajardo Work Phone: [facility] Work Phone: Start: 04-10-2023 End: 04-10-[address] Tonio Fajardo Work Phone: [facility] Work Phone: Start: 04-02-2023 Non-patient / Non-visit Dr. Min Fajardo Work Phone: [facility] Start: 04-02-[address] Tonio Fajardo [facility] Work Phone: Start: 03-19-2023 Non-patient / Non-visit Dr. Min Fajardo Work Phone: [facility] Start: 03-19-2023 End: 03-19-[address] Tonio Fajardo Work Phone: [facility] Work Phone: Start: 03-19-2023 End: 03-19-[address] Tonio Fajardo [facility] Work Phone: Start: 03-05-2023 Non-patient / Non-visit Dr. Min Fajardo Work Phone: [facility] Start: 02-23-2023 End: 02-23-[address] Tonio Fajardo Work Phone: [facility] Work Phone: Start: 02-19-2023 Non-patient / Non-visit Dr. Min Fajardo Work Phone: [facility] Start: 02-05-2023 Non-patient / Non-visit Dr. Min Fajardo Work Phone: [facility] Start: 02-05-2023 End: 02-16-[address] Tonio Fajardo Work Phone: [facility] Work Phone: Start: 02-05-2023 End: 02-16-[address] Tonio Fajardo [facility] Work Phone: Start: 01-22-2023 Non-patient / Non-visit Dr. Min Fajardo Work Phone: [facility] Start: 01-08-2023 Non-patient / Non-visit Dr. Min Fajardo Work Phone: [facility] Start: 01-08-2023 End: 01-17-[address] Tonio Fajardo Work Phone: [facility] Work Phone: Start: 01-08-2023 End: 01-17-[address] Tonio Fajardo [facility] Start: 12-30-2022 End: 12-31-2022 Emergency department patient visit Dr. Tonio Fajardo Work Phone: [facility]-Emergency Department Start: 12-25-2022 Non-patient / Non-visit Dr. Min Fajardo Work Phone: [facility] Start: 12-25-[address] Tonio Fajardo Work Phone: [facility] Start: 12-18-2022 Non-patient / Non-visit Dr. Min Fajardo Work Phone: [facility] Start: 12-12-2022 End: 12-12-[address] Tonio Fajardo Work Phone: [facility]-Pulmonary Medicine [facility] Start: 12-11-2022 Non-patient / Non-visit Dr. Min Fajardo Work Phone: [facility] Start: 12-11-2022 End: 12-17-[address] Tonio Fajardo Work Phone: [facility] Work Phone: Start: 12-11-2022 End: 12-17-[address] Tonio Fajardo Work Phone: [facility] Start: 12-06-2022 Non-patient / Non-visit Dr. Min Fajardo Work Phone: [facility] Start: 11-27-2022 Non-patient / Non-visit Dr. Min Fajardo Work Phone: [facility] Start: 11-20-2022 Non-patient / Non-visit Dr. Min Fajardo Work Phone: [facility] Start: 11-08-2022 Non-patient / Non-visit Dr. Min Fajardo Work Phone: [facility] Start: 11-08-2022 End: 11-17-[address] Tonio Fajardo Work Phone: [facility] Start: 10-30-2022 Non-patient / Non-visit Dr. Min Fajardo Work Phone: [facility] Start: 10-23-2022 Non-patient / Non-visit Dr. Min Fajardo Work Phone: [facility] Start: 10-18-2022 Non-patient / Non-visit Dr. Min Fajardo Work Phone: [facility] Start: 10-16-[address] Tonio Fajardo Work Phone: [facility] On[facility] Start: 10-16-2022 End: 10-16-[address] Tonio Fajardo Work Phone: [facility] Start: 10-09-2022 Non-patient / Non-visit Dr. Min Fajardo Work Phone: [facility] Start: 10-09-2022 End: 10-09-[address] Tonio Fajardo Work Phone: [facility] Start: 10-09-2022 End: 10-17-[address] Tonio Fajardo Work Phone: [facility] Work Phone: Start: 10-09-2022 End: 10-17-[address] Tonio Fajardo [facility] Start: 10-09-[address] Tonio Fajardo [facility] Start: 10-02-2022 Non-patient / Non-visit Dr. Min Fajardo Work Phone: [facility] Start: 10-02-2022 End: 10-02-[address] Tonio Fajardo Work Phone: [facility] Start: 09-25-2022 Non-patient / Non-visit Dr. Min Fajardo Work Phone: [facility] Start: 09-18-2022 Non-patient / Non-visit Dr. Min Fajardo Work Phone: [facility] Start: 09-18-2022 End: 09-19-[address] Tonio Fajardo Work Phone: [facility] Work Phone: Start: 09-18-2022 End: 09-19-[address] Tonio Fajardo Work Phone: [facility] Start: 08-29-2022 Non-patient / Non-visit Dr. Min Fajardo Work Phone: [facility] Start: 08-15-2022 Non-patient / Non-visit Dr. Min Fajardo Work Phone: [facility] Start: 08-15-2022 End: 08-19-[address] Tonio Fajardo Work Phone: [facility] Work Phone: Start: 08-15-2022 End: 08-19-[address] Tonio Fajardo Work Phone: [facility] Start: 08-08-2022 End: 08-08-[address] Tonio Fajardo Work Phone: [facility] Start: 08-01-2022 Non-patient / Non-visit Dr. Min Fajardo Work Phone: [facility] Start: 07-28-2022 Telephone encounter Jessie Parra APRN.CNP Work Phone: [facility] Comment on above: Patient Update Start: 07-19-2022 End: 07-19-[address] Tonio Fajardo Work Phone: [facility] Start: 07-18-2022 Non-patient / Non-visit Dr. Min Fajardo Work Phone: [facility] Start: 07-18-2022 End: 07-19-[address] Tonio Fajardo Work Phone: [facility] Work Phone: Start: 07-18-2022 End: 07-19-[address] Tonio Fajardo [facility] Start: 07-17-2022 End: 07-17-[address] Tonio Fajardo Work Phone: [facility] Start: 07-09-[address] Tonio Fajardo [facility] Start: 07-09-2022 Non-patient / Non-visit Dr. Min Fajardo Work Phone: [facility] Start: 07-05-2022 End: 07-05-[address] Tonio Fajardo Work Phone: [facility] Start: 06-28-2022 End: 06-28-[address] Tonio Fajardo Work Phone: [facility] Start: 06-26-2022 Non-patient / Non-visit Dr. Min Fajardo Work Phone: [facility] Start: 06-21-2022 End: 06-21-[address] Tonio Fajardo Work Phone: [facility] Start: 06-19-[address] Tonio Fajardo Work Phone: [facility]-Radiation Oncology Start: 06-14-2022 End: 06-14-[address] Tonio Fajardo Work Phone: [facility] Start: 06-12-2022 Non-patient / Non-visit Dr. Min Fajardo Work Phone: [facility] Start: 06-12-2022 End: 06-19-[address] Tonio Fajardo Work Phone: [facility] Work Phone: Start: 06-12-2022 End: 06-19-[address] Tonio Fajardo [facility] Start: 06-06-2022 Non-patient / Non-visit Dr. Min Fajardo Work Phone: [facility] Start: 06-02-2022 Non-patient / Non-visit Dr. Min Fajardo Work Phone: [facility] Start: 06-02-2022 End: 06-02-[address] Tonio Fajardo Work Phone: [facility] Work Phone: Start: 06-02-2022 End: 06-02-[address] Tonio Fajardo Work Phone: [facility]-Pulmonary Services/Neurology Start: 06-01-2022 Non-patient / Non-visit Dr. Min Fajardo Work Phone: [facility] Start: 06-01-[address] Tonio Fajardo Work Phone: [facility]-Radiation Oncology Start: 05-30-[address] Tonio Fajardo Work Phone: [facility] Start: 05-30-2022 End: 05-30-[address] Tonio Fajardo Work Phone: [facility] Start: 05-29-2022 Non-patient / Non-visit Dr. Min Fajardo Work Phone: [facility] Start: 05-29-[address] Tonio Fajardo [facility] [place] Start: 05-24-2022 End: 05-24-[address] Tonio Fajardo Work Phone: [facility] Start: 05-24-2022 Non-patient / Non-visit Dr. Min Fajardo Work Phone: [facility] Start: 05-24-[address] Tonio Fajardo Work Phone: [facility] Start: 05-22-2022 End: 05-22-[address] Tonio Fajardo Work Phone: [facility] Work Phone: Start: 05-22-2022 End: 05-22-[address] Tonio Fajardo Work Phone: [facility] Start: 05-17-2022 Non-patient / Non-visit Dr. Min Fajardo Work Phone: [facility] Start: 05-17-2022 End: 05-19-[address] Tonio Fajardo Work Phone: [facility] Work Phone: Start: 05-17-2022 End: 05-19-[address] Tonio Fajardo [facility] Start: 05-17-[address] Tonio Fajardo Work Phone: [facility] On[facility] Start: 05-11-2022 End: 05-11-[address] Tonio Fajardo Work Phone: [facility] Start: 05-11-2022 End: 05-11-[address] Tonio Fajardo [facility] Start: 04-28-2022 Non-patient / Non-visit Dr. Min Fajardo Work Phone: [facility] Start: 04-28-2022 End: 04-28-[address] Tonio Fajardo Work Phone: [facility] Work Phone: Start: 04-28-2022 End: 04-28-[address] Tonio Fajardo Work Phone: [facility] Start: 04-26-[address] Tonio Fajardo [facility] Start: 04-14-2022 End: 04-14-[address] Tonio Fajardo Work Phone: [facility] Work Phone: Start: 04-14-2022 End: 04-14-[address] Tonio Fajardo Work Phone: [facility]-Laboratory, OP Pavilion Start: 04-14-2022 End: 04-14-2022 Emergency department patient visit Dr. Tonio Fajardo Work Phone: [facility]-Emergency Department Start: 04-12-2022 End: 04-12-[address] Tonio Fajardo Work Phone: [facility] Work Phone: Start: 04-12-2022 End: 04-12-[address] Tonio Fajardo Work Phone: [facility] Start: 04-12-2022 End: 04-19-[address] Tonio Fajardo Work Phone: [facility] Work Phone: Start: 04-12-2022 End: 04-19-[address] Tonio Fajardo Work Phone: [facility] Start: 04-12-[address] Tonio Fajardo Work Phone: [facility] Start: 04-06-2022 Telephone encounter Derek Rivera MD Work Phone: [facility] Comment on above: Results (COVID+) Start: 04-05-2022 End: 04-05-2022 ambulatory TONIO FAJARDO Facility:[facility] Start: 04-05-2022 Telephone encounter Jessie Parra APRN.CARPET YARN WINDER OPERATOR Work Phone: [facility] Comment on above: Results Start: 04-05-2022 End: 04-05-2022 Subsequent hospital visit by physician Margaret [facility] Work Phone: Radiology Comment on above: Acute cough [R05.1] Start: 04-05-2022 End: 04-05-2022 Patient encounter procedure Jessie Rodriguez APRN.CARPET YARN WINDER OPERATOR Work Phone: [facility] Comment on above: Burning with urinati on (Primary Dx); Acute cough; Suspected COVID-19 virus infection Start: 03-01-2022 End: 03-19-[address] Tonio Fajardo Work Phone: [facility] Start: 02-08-2022 End: 02-16-[address] Tonio Fajardo Work Phone: [facility] Start: 01-17-2022 End: 01-17-[address] Tonio Fajardo Work Phone: [facility] Start: 01-04-2022 End: 01-17-[address] Ton[facility] Fajardo [facility] Start: 12-21-2021 Registered Recurring [facility] Start: 12-19-2021 End: 12-19-2021 [facility] Start: 11-29-2021 End: 12-17-2021 [facility] Start: 11-09-2021 End: 11-17-2021 Nutrition therapy [facility] Procedures Date Procedure Procedure Detail Performing Clinician Start: 03-04-2025 Urnls dip stick/tabl et reagent auto microscopy Dr. Tonio Fajardo DO Work Phone: Start: 03-04-[address] Tonio Fajardo DO Work Phone: Start: 03-04-2025 X-ray of chest, PA a nd lateral views Dr. Tonio Fajardo DO Work Phone: Start: 11-06-[address] Tonio Fajardo DO Work Phone: Start: 10-30-2024 CT of thorax and abd omen with contrast Dr. Tonio Fajardo DO Work Phone: Start: 09-25-2024 X-ray of chest, PA a nd lateral views Dr. Tonio Fajardo DO Work Phone: Start: 07-03-[address] Tonio Fajardo DO Work Phone: Start: 07-03-2024 Gram stain microscopy Sarah Fajardo DO Work Phone: Start: 07-03-2024 Microbial culture, routine Dr. Tonio Fajardo DO Work Phone: Start: 07-03-[address] Min Fajardo DO Work Phone: Start: 05-05-2024 Measurement of renal function Dr. Tonio Fajardo DO Work Phone: Comment on above: GFR Calc Start: 01-28-[address] Tonio davis DO Work Phone: Comment on above: Sent directly to [facility] per ordering physician. Start: 12-24-2023 Investigation of transfusion reaction Dr. Tonio Fajardo Work Phone: Start: 12-24-2023 Microbial culture, routine Dr. Tonio Fajardo Work Phone: Start: 11-06-2023 PET study for locali zation of tumor Dr. Tonio Fajardo Work Phone: Start: 11-06-2023 Albumin/Globulin ratio Dr. Tonio Fajardo DO Work Phone: Start: 11-06-[address] e fraction Dr. Tonio Fajardo DO Work Phone: Start: 11-06-[address] Tonio Fajardo DO Work Phone: Start: 11-06-2023 Urine lambda light c yg measurement Dr. Tonio Fajardo DO Work Phone: Start: 10-12-2023 CT of thorax with contrast Dr. Tonio Fajardo Work Phone: Start: 06-22-[address] Tonio Fajardo Work Phone: Start: 06-22-2023 Investigation of transfusion reaction Dr. Tonio Fajardo Work Phone: Start: 06-22-2023 Microbial culture, routine Dr. Tonio Fajardo Work Phone: Start: 06-22-[address] Min Fajardo Work Phone: Start: 06-08-[address] Tonio Fajardo Work Phone: Start: 06-08-2023 Fluoroscopic guidance Sarah Fajardo Work Phone: Start: 06-08-[address] Tonio Fajardo Work Phone: Start: 04-20-2023 X-ray of both feet Dr. Tonio Fajardo Work Phone: Start: 04-10-2023 CT of thorax with contrast Dr. Tonio Fajardo Work Phone: Start: 02-23-2023 Plain chest X-ray Dr. Nancy Fajardo Work Phone: Start: 01-08-[address] Tonio Fajardo Work Phone: Start: 01-08-2023 Investigation of transfusion reaction Dr. Tonio Fajardo Work Phone: Start: 01-08-2023 Microbial culture, routine Dr. Tonio Fajardo Work Phone: Start: 12-30-2022 Plain chest X-ray Dr. Nancy Fajardo Work Phone: Start: 12-30-2022 Bacteria identified in Blood by Culture Dr. Tonio Fajardo Work Phone: Start: 12-30-2022 SARS-CoV-2 & FLU Ant igen (Rapid) Dr. Tonio Fajardo Work Phone: Start: 12-30-[address] Tonio Fajardo Work Phone: Start: 10-09-2022 CT of thorax with contrast Dr. Tonio Fajardo Work Phone: Start: 10-02-2022 Plain chest X-ray Dr. Nancy Fajardo Work Phone: Start: 05-22-2022 MRI of brain with contrast Dr. Tonio Fajardo Work Phone: Start: 05-17-2022 Positron emission tomography with computed tomography Dr. Tonio Fajardo Work Phone: Start: 04-28-2022 Plain chest X-ray Dr. Nancy Fajardo Work Phone: Start: 04-28-2022 Biopsy/Inj or Needle Placement Dr. Tonio Fajardo Work Phone: Start: 04-28-2022 Plain chest X-ray Dr. Nancy Fajardo Work Phone: Start: 04-12-2022 CT of thorax with contrast Dr. Tonio Fajardo Work Phone: Start: 04-05-2022 Radiologic exam ches t 2 views Jessie Rodriguez INSERTING PRESS OPERATOR.CARPET YARN WINDER OPERATOR Work Phone: Start: 04-05-2022 Urnls dip stick/tabl et rgnt auto w/o microscopy Onelia Cuevas INSERTING PRESS OPERATOR.CARPET YARN WINDER OPERATOR Work Phone: Start: 11-02-2021 X-ray of both feet Anaerobic microbial culture Dr. Tonio Fajardo Work Phone: Anaerobic microbial culture Dr. Tonio Fajardo Work Phone: Anaerobic microbial culture Dr. Tonio Fajardo Work Phone: Bacteria identified in Blood by Culture Dr. Tonio Fajardo Work Phone: Investigation of transfusion reaction Dr. Tonio Fajardo Work Phone: Investigation of transfusion reaction Dr. Tonio Fajardo Work Phone: Investigation of transfusion reaction Dr. Tonio Fajardo Work Phone: Microbial culture, routine D amy Fajardo Work Phone: Microbial culture, routine D rMarianna Fajardo Work Phone: Microbial culture, routine D rMarianna Fajardo Work Phone: Urine culture Dr. Tonio robertson Work Phone: Urine culture Dr. Tonio robertson Work Phone: Plan of Treatment Date Care Activity Detail Author Start: 03-05-2025 Chest 1 View (Portable) Chest 1 View (Portable) [facility] Start: 03-05-2025 XR Chest Single view [facility] Start: 03-04-2025 Hospital admission, emergency, from emergency room, medical nature [facility] Start: 03-04-2025 Verification routine [facility] Start: 03-04-2025 Admission procedure [facility] Start: 03-04-2025 Thyroid stimulating hormone measurement [facility] Start: 03-04-2025 [facility] Start: 04-20-2024 Covid-19 Vaccine () Covid-19 Vaccine () [facility] Start: 04-20-2024 Influenza vaccination Influenza Vacc ine (#1) [facility] Start: 08-20-2023 Advance Directive Discussion Advance Directive Discussion [facility] Start: 06-22-2023 [facility] Start: 06-08-2023 Patient discharge [facility] Start: 06-08-2023 Anes open proc bones lower leg/ankle/foot nos ANESTH LOWER LEG BONE SURG [facility] Start: 06-08-2023 Osteot w/wo lngth shrt/corrj 1st metar INCISION OF METATARSAL [facility] Start: 06-08-2023 Prep site f/s/n/h/f/ g/m/d gt 1st 100 sq cm/1pct WOUND PREP F/N/HF/G [facility] Start: 06-08-2023 Sub grft f/s/n/h/f/g /m/d <100sq cm 1st 25 sq cm SKIN SUB GRAFT FACE/NK/HF/G [facility] Start: 06-08-2023 Fluoroscopic guidance O.R. Fluoro fo r C-Arm [facility] Start: 06-08-2023 Radiography of foot Foot 2 Views [facility] Start: 12-30-2022 [facility] Start: 12-30-2022 End: 12-30-2022 Blood culture [facility] Start: 12-30-2022 End: 12-30-2022 [facility] Start: 02-27-2023 CBC W Auto Different ial panel - Blood [facility] Start: 10-16-2022 Lactate dehydrogenas e measurement [facility] Start: 10-16-2022 End: 10-16-2022 [facility] Start: 07-18-2022 [facility] Work Phone: Start: 05-18-2022 [facility] Work Phone: Start: 05-11-2022 Patient referral [facility] Work Phone: Start: 04-28-2022 CORE NDL BX LNG/MED PERQ CORE NDL BX LNG/MED PERQ [facility] Work Phone: Start: 04-28-2022 Following clinical p athway protocol [facility] Work Phone: Start: 04-28-2022 Catheterization of vein [facility] Work Phone: Start: 04-28-2022 Oxygen therapy [facility] Work Phone: Start: 04-28-2022 Patient discharge [facility] Work Phone: Start: 04-28-2022 Vital signs measurements [facility] Work Phone: Start: 04-20-2022 Influenza vaccination INFLUENZA (#1) [facility] Start: 04-05-2022 End: 04-19-2022 Influenza virus A and B RNA and SARS-CoV-2 (COVID-19) N gene panel - Respiratory specimen by BRYAN with probe detection [facility] Work Phone: Comment on above: Expected: 04/05/2022 , Expires: 04/19/2022 Start: 08-20-2021 ADVANCE DIRECTIVE DISCUSSION ADVANCE DIRECTIVE DISCUSSION [facility] Start: 08-20-2021 DEPRESSION ASSESSMENT DEPRESSION ASS ESSMENT [facility] Start: 05-04-2021 COVID-19 VACCINE (3 - Booster for Moderna series) COVID-19 VACCINE (3 - Booster for Moderna series) [facility] Start: 01-27-2021 COVID-19 VACCINE (3 - Booster for Moderna series) COVID-19 VACCINE (3 - Booster for Moderna series) [facility] Start: 01-15-2020 RSV Vaccine (1 - 1-d ose 75+ series) RSV Vaccine (1 - 1-dose 75+ series) [facility] Start: 12-01-2018 DIABETES SCREEN DIABETES SCREEN [facility] Start: 12-01-2018 Diabetes Screening Diabetes Screenin g [facility] Start: 2010 Pneumococcal Vaccine : 65+ (1 of 1 - PCV) Pneumococcal Vaccine: 65+ (1 of 1 - PCV) [facility] Start: 2010 PNEUMOCOCCAL: 65+ (1 - PCV) PNEUMOCOCCAL: 65+ (1 - PCV) [facility] Start: 1995 SHINGRIX VACCINE (1 of 2) HEIN GRIX VACCINE (1 of 2) [facility] Start: 01-15-1964 Urine microalbumin profile [facility] Start: 1963 Anxiety Screening Anxiety Screening [facility] Start: 1963 Depression Screening Depression Scre ening [facility] Start: 1963 HEPATITIS C SCREENING HEPATITIS C [facility] Start: 1957 Adult depression scr eening assessment [facility] Alanine aminotransfe rase [Enzymatic activity/volume] in Serum or Plasma [facility] Albumin [Mass/volume ] in Serum or Plasma [facility] Alkaline phosphatase [Enzymatic activity/volume] in Serum or Plasma [facility] Anaerobic Culture Anaerobic Culture [facility] Work Phone: Anion gap measurement [facility] Aspartate aminotrans ferase [Enzymatic activity/volume] in Serum or Plasma [facility] Bacteria identified in Blood by Culture Blood Culture [facility] Bacteria identified in Unspecified specimen by Anaerobe culture [facility] Work Phone: Bacteria identified in Urine by Culture URINE CULTURE Microbiology Routine Burning with urination 04/05/2022 1:58 PM EDT [facility] Work Phone: Bacteria identified in Urine by Culture Urine Culture [facility] Bilirubin, total measurement [facility] BUN/Creatinine ratio [facility] Calcium [Mass/volume ] in Serum or Plasma [facility] Carbon dioxide, tota l [Moles/volume] in Serum or Plasma [facility] CBC W Auto Different ial panel - Blood [facility] Work Phone: CBC W Auto Different ial panel - Blood [facility] CBC W Auto Different ial panel - Blood [facility] Chloride [Moles/volu me] in Serum or Plasma [facility] Creatinine [Moles/vo lume] in Serum or Plasma [facility] CT Chest and Abdomen W contrast IV [facility] CT Chest W contrast IV [facility] Work Phone: CT Chest W contrast IV [facility] Glucose [Mass/volume ] in Serum or Plasma [facility] Hematocrit [Volume Fraction] of Blood [facility] Hemoglobin [Mass/vol ume] in Blood [facility] Hemoglobin A1c/Hemoglobin.total in Blood [facility] Lactate dehydrogenas e measurement [facility] Lactate dehydrogenas e measurement [facility] LDH [facility] Work Phone: Leukocytes [#/volume ] in Blood [facility] Magnesium measurement [facility] Mean corpuscular hemoglobin concentration determination [facility] Mean corpuscular hemoglobin determination [facility] Measurement of renal function [facility] Microbial culture, routine Wound Culture [facility] Work Phone: MR Brain WO and W co ntrast IV [facility] Work Phone: Natriuretic peptide. B prohormone N-Terminal [Mass/volume] in Serum or Plasma [facility] Neutrophil count [facility] Neutrophil percent differential count [facility] Patient Education [facility] Work Phone: Patient referral [facility] Work Phone: Platelets [#/volume] in Blood [facility] Positron emission tomography with computed tomography [facility] Work Phone: Potassium [Moles/vol ume] in Serum or Plasma [facility] Procedure [facility] PT Unspecified body region W [facility] Radiation oncology A ND/OR radiotherapy [facility] Work Phone: Radiation oncology A ND/OR radiotherapy [facility] Red blood cell count [facility] Red cell distributio n width determination [facility] Sodium [Moles/volume ] in Serum or Plasma [facility] Total protein measurement [facility] Urea nitrogen [Mass/volume] in Serum or Plasma [facility] Immunizations Immunization Date Immunization Notes Care Provider Fa anna 08-03-2014 influenza virus vaccine, unspecified formulation [facility] Work Phone: [facility] 06-20-2013 Influenza virus vaccine W [facility] 06-20-2013 Pneumococcal Vaccine [facility] Work Phone: 06-20-2013 pneumococcal vaccine , unspecified formulation Dr. Tonio Fajardo Work Phone: [facility] Payers Date Payer Category Payer Self-pay [id number] 2009 Medicare [id number] 2009 Medicare MEDICARE MEDICAR E A AND B [id number] 2009-Present [phone] [address] [address] [place] [address] Medicare [id number] 2009 [employer] ( and others) [id number] 2009 Unknown FOR LIFE [id number] 2009-Present [phone] [address] [place] [address] Indemnity [id number] Unknown [id number]. 2.462 Unknown [id number] [id number]. 2.462 Unknown [id number] [id number]. 2.462 Unknown [id number] 2.16.840.1.707620.3.579. 2.462 Unknown [id number] 2.16.840.1.932230.3.579. 2.462 Unknown [id number] 2.16.840.1.109203.3.579. 2.462 Unknown [id number] 2.16840.1.665127.3.579. 2.462 Unknown [id number] 2.840.1.999566.3.579. 2.462 Unknown [id number] 2.840.1.205731.3.579. 2.462 Unknown [id number] 2.16840.1.816934.3.579. 2.462 Unknown [id number] 2.840.1.236129.3.579. 2.462 Unknown [id number] 2.840.1.358489.3.579. 2.462 Unknown [id number] 2.840.1.796753.3.579. 2.462 Unknown [id number] 2.840.1.847142.3.579. 2.462 Unknown [id number] 2.840.1.520256.3.579. 2.462 Unknown [id number] 2.840.1.782514.3.579. 2.462 Unknown [id number] 2.840.1.800078.3.579. 2.462 Unknown [id number] 2.840.1.802533.3.579. 2.462 Unknown [id number] 2.840.1.370474.3.579. 2.462 Unknown [id number] 2.840.1.125890.3.579. 2.462 Social History Date Type Detail Facility Start: 01-06-2021 End: 10-31-2023 Tobacco smoking status LAIS Unknown if ever smoked [facility] Start: 08-27-2013 None [facility] Start: 03-18-2014 Spouse/ Signif icant Other [facility] Start: 06-20-2014 Non-smoker [facility] Start: 1945 Sex Assigned At Male W [facility] Start: 04-05-2022 End: 03-04-2025 Tobacco smoking status NHIS Ex-smoker [facility] Work Phone: History of tobacco use Current smoker [facility] Work Phone: History of tobacco use Cigarette Smoker [facility] Work Phone: Start: 04-05-2022 Tobacco use and exposure Former smokeless tobacco user [facility] Work Phone: Start: 1945 Sex Assigned At Not on file [facility] Start: 03-26-2022 End: 04-05-2022 Exposure to SARS-CoV-2 (event) Not sure [facility] Work Phone: Start: 04-05-2022 History of Social function [facility] Start: 04-05-2022 Tobacco use panel [facility] Start: 10-30-2024 End: 11-10-2024 Sex Male (finding) [facility] Medical Equipment Procedure Code Equipment Code Equipment Origin al Text Equipment Identifier Dates Bunionectomy BIOVANCE, 2 x 2CM FDA Start : 06-08-2023 Bunionectomy BIOVANCE, 2 x 2CM FDA Start : 06-08-2023 Bunionectomy BIOVANCE, 2 x 2CM FDA Start : 06-08-2023 Bunionectomy BIOVANCE, 2 x 2CM FDA Start : 06-08-2023 Bunionectomy BIOVANCE, 2 x 2CM FDA Start : 06-08-2023 Bunionectomy BIOVANCE, 2 x 2CM FDA Start : 06-08-2023 Bunionectomy BIOVANCE, 2 x 2CM FDA Start : 06-08-2023 Bunionectomy BIOVANCE, 2 x 2CM FDA Start : 06-08-2023 Goals Date Patient Goal Desired Activity /State Mental Status Date Assessment Result Facility 10-20-2023 Cognitive function Voice/Name [facility] Work Phone: 12-30-2022 Cognitive function Level Of Cons ciousness Awake;Alert;Appropriate;Follow s Commands [facility] Work Phone: 04-28-2022 Cognitive function Voice/Name [facility] Work Phone: 04-14-2022 Cognitive function Level Of Cons ciousness Awake;Appropriate;Follows Commands;Drowsy [facility] Work Phone: Clinical Notes 04-05-2022 to 03-04-2025 Note Date & Type Note Facility 03-04-2025 Discharge summary [facility] 03-04-2025 Radiology Diagnostic study note [facility] Imaging Services [address] [place], [place] [address] Chest PA and Lateral MR#: [id number] Acct: [id number] Name: PEDRO HILLMAN Rep #: [id number] : 1945 M 80 From: Tom Flores MD PCP: Dr. Tonio Fajardo DO Status: PRE ER Study:Chest PA and Lateral Date of Exam: 03/04/25 Exam# [id number] Ordering Dr: Camila Ochoa MD PROCEDURE: CHEST PA AND LATERAL 03/04/2025 REASON FOR EXAM: CHEST PAIN Shortness of breath. TECHNIQUE: CHEST PA AND LATERAL COMPARISON: Prior study dated September 25, 2024. FINDINGS: Hardware: EKG electrodes are seen Heart: Cardiomegaly. Prior midline sternotomy. Mediastinum: The mediastinal contour is unremarkable. Lungs: CHF. Small right pleural effusion with bibasilar atelectasis. Bones: Degenerative changes are identified within the thoracic spine. RAD/Chest PA and Lateral IMPRESSION: Cardiomegaly and CHF with small right pleural effusion and bibasilar atelectasisworse at the right lung base. Reading Location: [place] [address] CC: Dr. Chris Ochoa MD; Dr. Tonio Fajardo DO ~ Assistant Professor Of Radiology: Signed [facility] 03-04-2025 Discharge summary Note Date/Time March 04, 2025 7:26pm [facility] Medical Records Department [address] [place] [address] Emergency Department Summary 03/04/25 MR#: [id number] Acct: [id number] Name: PEDRO HILLMAN Rep #:[id number] : 1945 80 From: Chris Ochoa MD PCP: Dr. Tonio Fajardo, DO Status:REG ER Location: ED HPI History of Present Illness Chief Complaint: Shortness of Breath Informant: patient Onset/Context/Timing Onset: Days Context: gradual Timing: Intermittent Quality: Negative for Dyspnea on exertion or Wheezing Current Severity: Gone Maximum Severity: Mild Worsened by: Nothing Relieved by: Oxygen Associated Symptoms cough Chest Pain: Positive for None Narrative Narrative: 80-year-old male history of A-fib on Eliquis, CKD, anemia, diabetes, COPD. He is on 4 L at home. Also is a history of lung cancer. States he was short of breath today when he was changing his oxygen tank. Now he denies being short ofbreath. Denies any change in his cough but he is a chronic cough. Denies any fever. No chest pain. No hemoptysis. No leg swelling. PE Risk Factors: Positive for Cancer; Negative for OCP + Smoking + > 35, Prior DVT or PE, Recent immobilization, Recent surgery or Recent travel Prior similar symptoms: Yes Recent Illness/Hospitalization: No PFSH PFSH Medical History Other persistent atrial fibrillation New onset atrial flutter COVID Wears hearing aid in both ears Former smoker Coronary artery disease Peripheral vascular occlusive disease BPH (benign prostatic hyperplasia) Chronic kidney disease, stage 3 Atherosclerosis of coronary artery of [place] heart without angina pectoris Hyperlipidemia Lower extremity edema Venous insufficiency Malnutrition Delayed wound healing Osteomyelitis of ankle, left, acute Ulcer of left lower extremity with fat layer exposed Type 2 diabetes mellitus with diabetic polyneuropathy Anemia GERD (gastroesophageal reflux disease) Hypertension Home Medications ?Medication ?Instructions ?Recorded ?Last Taken ?Type insulin glargine 100 unit/mL 40 unit SQ DAILY 11/19/19 06/07/23 History subcutaneous solution multivitamin (Daily Multi-Vitamin 1 tab PO DAILY 06/2806/07/23 History tablet) sitagliptin phosphate 50 mg tablet 50 mg PO DAILY 10/1806/07/23 History (Januvia) pravastatin 20 mg tablet 20 mg PO DAILY 01/17/2205/20 History cranberry 500 mg capsule 500 mg PO DAILY 07/25/23 Unk nown History docusate sodium 100 mg capsule 100 mg PO DAILY PRN 02/09 Unknown History (Colace) metoprolol tartrate 25 mg tablet 12.5 mg (1/2 x 25 mg) PO BID #45 06/18/24 Unknown Rx TABLETS apixaban 5 mg tablet (Eliquis) 5 mg PO BID #180 TABLET S 08/04/24 Unknown Rx albuterol sulfate 90 mcg/actuation 2 puff inhalation Q 4H PRN 10/23/24 Unknown Rx aerosol inhaler shortness of breath or wheez ing #3 device guaifenesin 1,200 mg tablet, 1,200 mg PO Q12H #180 tab s 10/23/24 Unknown Rx extended release 12 hr umeclidinium 62.5 mcg-vilanterol 1 inh inhalation QDAY #60 ea 10/23/24 Unknown Rx 25 mcg/actuation powdr for inhalation (Anoro Ellipta) clopidogrel 75 mg tablet (Plavix) 75 mg PO DAILY #90 t abs 11/11/24 Unknown Rx lisinopril 2.5 mg tablet 2.5 mg PO DAILY #90 TABLETS 02/02/25 Unknown Rx Allergy/AdvReac Type Severity Reaction Status Date / Time ibuprofen Allergy Severe Facial Verified 11/06/24 14:44 swelling (angioedema) Family History Brother Diabetes Father , Age 72 stomach ulcers No problems noted. Mother , Age 71 pancreatitis No problems noted. Sister , hepatitis C No problems noted. Surgical History H/O aorto-femoral bypass (~2009) History of transurethral resection of prostate Presence of aortocoronary bypass graft (~03/2013) Social History Smoking Status: Former smoker Tobacco: How many years used: 30 how long ago did patient quit smokin years ROS ROS ED ROS Narrative Denies recent illness. Denies chest pain. Denies fever. No change in the cough. No hemoptysis. Constitutional Constitutional ED: Denies chills or fever(s) ENT ENT ED: Denies ear pain Cardiovascular Cardiovascular: Denies chest pain Respiratory/Chest Respiratory/Chest: Reports cough and dyspnea Gastrointestinal Gastrointestinal: Denies abdominal pain Genitourinary Genitourinary ED: Denies dysuria or hematuria Musculoskeletal Musculoskeletal: Denies arthralgias Neurologic Neurologic: Denies headache(s) Psychiatric Psychiatric: Denies anxiety Endocrine Endocrinology: Denies cold intolerance Hematologic/Lymphatic Hematologic/Lymphatic: Denies easy bleeding, easy bruising or lymphadenopathy Allergic/Immunologic Allergic/Immunologic ED: Denies mouth swelling, tongue swelling or urticaria EXAM Physical Exam Narrative Exam Narrative: 80-year-old male no acute distress vital signs stable afebrile on his normal 4 Lhe is under percent. At 70 wears at home. H EENT exam pupils are react to light. Moist membranes. Neck nontender. No JVD. No lymphadenopathy. Lungs clear to auscultation bilaterally. No rales, rhonchi or wheezing. Equal symmetric. Heart A- flutter rate about 108 no murmur. Chest wall ribs nontender. Abdomen soft nontender. No peritoneal signs. Back nontender. Movingall 4 extremities. Normal acidizer water well strength. Calves nontender without edema or cords. Normal dorsi plantarflexion. Neurologically is awake alert. Answer questions following commands. Const Vital Signs: 03/04/25 14:58 03/04/25 15:01 03/04/25 15:05 Temperature 97.7 F L 97.7 F L Temperature Source Oral Oral Pulse Rate 108 H 108 H Respiratory Rate 16 28 H Respiratory Effort Respiratory Depth Respiratory Pattern Blood Pressure 138/69 H 138/69 H Blood Pressure Mean 92 92 Pulse Ox 100 100 Oxygen Delivery Method Non-Rebreather Nasal Cannula Oxygen Flow Rate (L/min) 4 03/04/25 16:05 03/04/25 16:16 03/04/25 17:00 Temperature 97.8 F 97.8 F Temperature Source Oral Oral Pulse Rate 66 112 H Respiratory Rate 24 H 25 H Respiratory Effort Non-Labored Respiratory Depth Normal Respiratory Pattern Tachypnea Blood Pressure 93/59 L 134/85 H Blood Pressure Mean 70 101 Pulse Ox 97 96 Oxygen Delivery Method Room Air Oxygen Flow Rate (L/min) 03/04/25 18:00 03/04/25 19:00 Temperature 97.9 F 97.9 F Temperature Source Oral Oral Pulse Rate 114 H 117 H Respiratory Rate 18 23 H Respiratory Effort Respiratory Depth Respiratory Pattern Blood Pressure 154/79 H 119/78 Blood Pressure Mean 104 91 Pulse Ox 96 89 Oxygen Delivery Method Room Air Nasal Cannula Oxygen Flow Rate (L/min) 4 Positive well nourished and well developed; Negative for cachectic, contracturesor unkempt General Appearance ED: well developed and NAD; Negative for unkempt, cachectic, contractures or pallor Nutritional Appearance: Negative for cachectic HEENT Reports moist mucous membranes atraumatic Eyes PERRL and EOMs intact bilaterally Neck no lymphadenopathy, supple, no meningeal signs and no JVD Resp normal respiratory effort and clear to auscultation bilaterally Cardio Negative for regular rate Cardio Narrative: Atrial flutter rate about 108. GI non-tender, non-distended and no masses Auscultation: normoactive bowel sounds Palpation: soft; Negative for tender, guarding or rebound tenderness present Back/Spine no CVA tenderness and normal to inspection Extremity normal to inspection General Extremety ED: Negative for edema or tenderness General Extremity: Negative for edema Neuro oriented x3 and CN's II-XII intact bilaterally Sensorium / Orientation: alert, oriented to person, oriented to place and oriented to time Speech: speech normal Motor Exam: strength 5/5 throughout Psych mental status grossly normal Appearance: Negative for unkempt Attitude: No agitated Mood & Affect: Negative for depressed Thought Process: normal thought process Skin no wounds and skin turgor normal General Skin Exam: Negative for jaundice or pallor Lesions: no lesions Rashes: no rashes Trauma: Negative for abrasion or laceration MDM MDM MDM Narrative Medical decision making narrative: 80-year-old male short of breath but currently he is symptom-free on his normal 4 L of oxygen. At home he was hypoxic but he was not on oxygen. Now he has no complaints. Lungs are clear. Will get a cardiac psych respiratory workup. He is currently not wheezing so not an given aerosols or steroids currently. Chestx-ray, EKG and labs are pending. Differential would include COPD, pneumonia, CHF, pulmonary effusions, fib flutter, etc. Repeat exam at 7:10 PM. Patient is resting comfortably. We discussed all his test results. Nurses walked him on his 4 L he started do well his sat was in the low 90s on 4 L then he got more short of breath, his respiratory rate increased his pulse ox dropped down to 84% and he seemed labored. He is doing better currently. I think in light of that his right pleural effusion, the CHF he probably needs to come in and be diuresed. He is comfortable with the plan. The hospitalist is on page. Patient's back in atrial flutter at 117 and I discussed with the hospitalist he preferred a single dose of digoxin. If that does not work he may start a Cardizem drip. History & Record Review Discussion w/independent historian: Patient Additional record(s) reviewed:: Prior inpatient record, Prior outpatient record,Prior ED visit and Prior labs Lab Data Attestation: I reviewed the patient's lab results. Lab results narrative: CBC shows a white count 7.6 H&H of 10.1 and 33.4 which is his baseline anemia. Platelets 189. Chemistry shows sodium 138. Potassium 5.2. Gap 8. BUN/creatinine of 37 1.86. Glucose 124. Initial troponin 44. 2-hour troponin 45. BNP is elevated at 3, 316. Chest x-ray chronic changes with pulmonary edema and a right pleural effusion. Labs: Laboratory Results - last 24 hr 03/04/25 03/04/25 15:10 17:20 WBC 7.6 RBC 3.74 L Hgb 10.1 L Hct 33.4 L MCV 89.3 MCH 27.0 MCHC 30.2 L RDW Std Deviation 54.2 H RDW Coeff of Reggie 16.5 H Plt Count 189 MPV 10.2 Immature Gran % (Auto) 0.700 Neut % (Auto) 78.1 H Lymph % (Auto) 10.1 L Hanson % (Auto) 9.1 Eos % (Auto) 1.6 Baso % (Auto) 0.4 Absolute Neuts (auto) 6.0 Absolute Lymphs (auto) 0.77 L Nucleated RBC % 0 Sodium 138 Potassium 5.2 H Chloride 102 Carbon Dioxide 28.6 Anion Gap 8 BUN 37 H Creatinine 1.86 H Estim Creat Clear Calc 28.58 L Est GFR (MDRD) Non-Af 36 L BUN/Creatinine Ratio 19.7 Glucose 124 H Calcium 9.3 Troponin T High Sens 44 H Troponin T Hi Sens 2 Hr 45 H NT pro BNP II 3316 H Radiography Chest X-Ray - ED: 2 View, Read by ED Physician, Read by Radiologist, Chronic Changes, Cardiomegaly, CHF and Right Effusion Diagnostic Testing: Clinical Impression(s) from Imaging Studies Chest X-Ray 03/04/25 14:59 IMPRESSION: Cardiomegaly and CHF with small right pleural effusion and bibasilar atelectasisworse at the right lung base. Reading Location: [facility] Chest x-ray, 2 views, AP and lateral, interpreted by myself and the radiologist shows cardiomegaly, prior sternotomy, right pleural effusion and pulmonary edema. No pneumonia. Rhythm Strip Rhythm Strip: Atrial flutter Rate: 108 Ectopy: None EKG Initial EKG: Attestation: I personally reviewed and interpreted this EKG as follows: Interpretation: No Acute Injury Pattern and Atrial Flutter Comments: Atrial flutter rate of 108. 2-1 conduction. Incomplete right bundle branch block. Discharge Plan Dx/Rx/DC Orders Clinical Impression: Acute dyspnea, Hypoxia, Atrial flutter, CHF (congestive heart failure), Pleuraleffusion on right, History of diabetes mellitus, History of COPD, Chronic kidneydisease, Chronic anticoagulation Disposition Disposition: Acute Care Hospital [facility] What to do if you have Problems For any increased pain, shortness of breath, bleeding, nausea or vomiting, chestpain, or any unexpected problems, contact your Primary Care Provider. Call [facility] ([phone]) or report to the closest Emergency Room. Call 911 if necessary. 03/04/251925 <Electronically signed by Chris Ochoa MD> Cosigner Signature (if applicable): CC: Dr. 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 Imaging Services [address] [place], [place] [address] CT Chest AND Abd W/ Contrast MR#: [id number] Acct: [id number] Name: PEDOR HILLMAN Rep #: [id number] : 1945 M 79 From: Tom Flores MD PCP: Dr. Tonio Fajardo, DO Status: REG CLI Study:CT Chest AND Abd W/ Contrast Date of Ex am: 10/30/24 Exam# [id number] Ordering Dr: Frantz Zamora MD PROCEDURE: CT CHEST AND ABD W/ CONTRAST REASON FOR EXAM: MONITOR -HX OF LUNG CA Prior radiation therapy. TECHNIQUE: Chest and abdomen CT with intravenous contrast. No oral contrast. CONTRAST: 98 mL of Isovue-300. COMPARISON: Comparison is made with prior study dated April 28, 2024. FINDINGS: CT CHEST: Hardware: None. Lymph nodes: No mediastinal, hilar, or axillary lymphadenopathy. Heart and Vasculature: Prior CABG. Calcification of the mitral valve annulus. Calcification of the coronary arteries. Atherosclerotic calcification of the aortic arch and descending thoracic aorta. Lungs and Airways: Since prior study, there has been progressive increase in theright pleural effusion with underlying compressive atelectasis at the right lung base. 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 The previously seen spiculated nodule in the right upper lobe has decreased in size although there has been an increase in the airspace disease. There is volume loss in the right hemithorax with shift of the heart and mediastinal structures to the right side. There is evidence of scarring in the left hemithorax with the blebs in the posterolateral aspect of the left lower lobe. Degenerative changes of the thoracic vertebrae. CT ABDOMEN: Liver: Unremarkable. Gallbladder: Multiple small gallstones are seen. Spleen: Unremarkable. Pancreas: Unremarkable. Adrenals: Unremarkable. Kidneys: Unremarkable. Bowel: Visualized loops of bowel in the upper abdomen are unremarkable. Lymph nodes: No suspicious lymph node enlargement at the upper abdomen. Vasculature: The patient is status post aorto bi-iliac grafting. There is densecalcification of thenative iliac arteries bilaterally. Peritoneum / Retroperitoneum: No ascites or free air at the upper abdomen.. Small umbilical hernia containing fat. Bones: Degenerative changes of the spine. CT/CT Chest AND Abd W/ Contrast IMPRESSION: Increase in size of the right pleural effusion with volume loss in the right hemithorax with shift of the heart and mediastinal structures towards the right side of the midline. 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 One or more dose reduction techniques were used (e.g., Automated exposure control, adjustment of the mA and/or kV according to patient size, use of iterative reconstruction technique). Reading Location: [id number] CC: Dr. Russ Zamora MD; Dr. Tonio Fajardo DO ~ Assistant Professor Of Radiology: Signed [facility]02-28-2025 Procedure notey [facility] Pulmonary Services/Neurology [address] [place] [address] MR#: [id number] Acct: [id number] Name: PEDRO HILLMAN Rep #:[id number] : 1945 79 From: Tyrell Uriarte DO Referring Dr: Lorie Mart NP SENIOR BOILER OPERATOR-C Status: REG CLI Location: PSN Date: Sex: M C PSN 6 Minute Walk Test 6 Minute Walk Test 6 Minute Walk Test: 6 Minute Walk Test PSN:6-Minute Walk Test Start: 10/16/24 13:24 Freq: Status: Active Protocol: RESP.[email or web address] Document 10/16/24 13:24 [facility] (Rec: 10/16/24 13:34 AMH [id number]) 6 Minute Walk Test Date Performed 10/16/24 Time Performed 12:30 Height 5 ft 6 in Weight: 174 lb Weight in Pounds 174.[address]: Lorie Mart SENIOR BOILER OPERATOR Assistive device Walker used: Pre-test Oxygen Delivery Room Air Method Pulse Ox (%) 96 Pulse Rate (60-100 98 beats/min) Dyspnea Galilea Scale ( 0 0-10) 1st minute Oxygen Delivery Room Air Method Pulse Ox (%) 90 Pulse Rate (60-100 101 H beats/min) Dyspnea Galilea Scale ( 2 0-10) Number of Rests 1 Taken Reported Symptoms Increased Work of Breathing 2nd minute Oxygen Delivery Room Air Method Pulse Ox (%) 88 Pulse Rate (60-100 100 beats/min) Dyspnea Galilea Scale ( 3 0-10) Number of Rests 1 Taken Reported Symptoms Increased Work of Breathing 3rd minute Oxygen Delivery Room Air Method Pulse Ox (%) 86 Pulse Rate (60-100 107 H beats/min) Dyspnea Galilea Scale ( 4 0-10) Number of Rests 1 Taken Reported Symptoms Increased Work of Breathing 4th minute Oxygen Delivery Room Air Method Pulse Ox (%) 85 Pulse Rate (60-100 102 H beats/min) Dyspnea Galilea Scale ( 4 0-10) Number of Rests 0 Taken Reported Symptoms Increased Work of Breathing 5th minute Oxygen Delivery Room Air Method Pulse Ox (%) 83 Pulse Rate (60-100 103 H beats/min) Dyspnea Galilea Scale ( 4 0-10) Number of Rests 1 Taken Reported Symptoms Cyanotic,Increased Work of Breathing 6th minute Oxygen Flow Rate (L/ 2 min) (L/min) Oxygen Delivery Nasal Cannula Method Pulse Ox (%) 92 Pulse Rate (60-100 98 beats/min) Dyspnea Galilea Scale ( 4 0-10) Number of Rests 1 Taken Reported Symptoms Increased Work of Breathing Post-test Oxygen Delivery Room Air Method Pulse Ox (%) 94 Pulse Rate (60-100 96 beats/min) Dyspnea Galilea Scale ( 1 0-10) Full Laps Walked 5 Partial Lap, Number 34 of Tiles Walked Total Distance 329 Walked (ft) 10/16/24 13:28 Cardiopulmonary Services by ClaraNovember PATIENT PUSHED W/C FOR STABILITY DURING 6MWT. PATIENT WAS VERY HESITANT TO ADD OXYGEN THROUGHOUT TESTING FOR SPO2'S BELOW 88% BECAUSE EACH SHORT REST BREAK HISSPO2 WOULD INCREASE TO BETWEEN 89-92%. HE SAID HE DOES NOT WALK NEARLY THIS MUCHAT HOME AND DOES NOT REALLY WANT TO WEAR OXYGEN. AT 5 MIN, SPO2 WAS 83%, SO O2 WAS PLACED AT 2LPM WITH PATIENT APPROVAL, HE WORE FOR REMAINDER OF TESTING. HE AMBULATED A TOTAL OF 329FT. Initialized on 10/16/24 13:28 - END OF NOTE Interpretation Interpretation: The patient ambulated 329 feet over the course of 6 minutes beginning on room air with the use of awalker. Pretesting oxygen saturation was noted to be 96% on room air. With ambulation, the patient desaturated on several occasions requiring the initiation of supplemental oxygen at 2 L/min to maintain appropriate saturations. Recommendations Recommendations: 2 L/min of supplemental oxygen should be utilized with exertion. 10/17/24 1005 O> Date _ Tyrell Uriarte DO CC: ~ Date Dictated: 10/17/24 1004 Date Transcribed: 10/17/24 1004 Assistant Professor Of Radiology: Dr. 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 2024 2:10pm [facility] Work Phone: 1(373) 163-322402-06-2025 Evaluation note* Diagnosis Onset Date Resolution Status Admit Date HAMILTON (dyspnea on exertion) acute September 25, 2024 12:50pm Other persistent atrial fibrillation acute September 25 12:50pm Hyperlipidemia chronic September 252024 12:50pm Hypertension chronic September 12:50pm Peripheral vascular occlusiv e disease chronic September 25 12:50pm Presence of aortocoronary bypass graft 2013 September 25 12:50pm Hypoxia acute October 23 2:10pm COPD (chronic obstructive pulmonary disease) chronic October 23 2:10pm 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 Marlon h 2024 2:10pm 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 Tonio Fajardo, DO Status:REG RCR Location: History of Present Illness Date of Service: 04/18/23 Chief Complaint: right medial foot ulcer History of Wound: This 78-year-old male returns to the wound healing clinic for reoccurrence of a right medial foot ulcer. Patient with diabetic neuropathic. 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 Patient offloading right foot with surgical shoe. Wound culture from 07/18/22 positive for Staphylococcus pseudintermediu, he completed Augmentin. Wound culture from 01/08/23 positive for Staphylococcus pseudintermediu, he completed the Augmentin BID. Vascular:? 12/19/21 - Right EULALIA - 1.15, Left EULALIA 1.06.? Right digital 0.74, Left digital 0.71, bilateral triphasic. Venous studies showed bilateral no DVT, Bilateral calf with primary veins with reflux, bilateral SPJ reflux. Wound care - He completed 10 applications of Epifix. Bactroban ointment coveredwith adaptic and topped with gauze. Patient denies constitutional's or pains at this time. No other complaints. Progress of Wound: Right hallux ulcer is slightly smaller. He did not have the overgrowth of callusthis week. He has cut out a portion of his shoe to help with the off loading. Subjective Subjective Mr. Hillman is a 78-year-old diabetic male seen in the wound care center today with a chief complaint of full-thickness ulceration to the medial aspect of the big toe joint of his right foot. Patient midst to having this wound healed forapproximately 1 year and now has reopened. He is using a shoe with a cut out that has helped decrease pressure however still has the wound. He did have PVRsapproxi-1 year ago. He admits to being a controlled diabetic. His blood sugar today was 151 mg/dL, and his last A1c was 6.8. He denies trauma. Denies constitutional symptoms. No other pedal complaints at this time. Objective Data Objective Data Vital Signs: Vital Signs Temp Pulse Resp BP O2 Del Method 97.5 F L 109 H 16 141/77 H Room Air 04/18/23 13:24 04/18/23 13:24 04/18/23 13:24 04/18/23 13:24 04/18/23 13:24 Oxygen Delivery Method Room Air Lab / Micro Data Attestation: I reviewed the patient's lab results. Physical Exam Narrative Vascular: DP and PT pulses are faintly palpable. CFT is delayed. Atrophic skinis appreciated. No erythema or proximal streaking. Neurological: Light touch intact. Protective sensation is diminished. Dermatological: Hyperkeratotic pink periwound to the medial aspect of the first metatarsophalangeal joint. Full-thickness ulceration is also present to the first metatarsophalangeal joint. Wound measures 0.4 x 0.2 x 0.3 cm. No probe to bone. No sign of infection. Excisional debridement of the full-thickness ulceration to the medial aspect of the first metatarsophalangeal joint right foot down to and including subcutaneous tissue with a #15 blade without incident. Predebridement measurements were 0.4 x 0.2 x 0.3 cm, postdebridement measurement are 0.6 x 0.5 x 0.5 cm. Sanguinous drainage noted after debridement. Musculoskeletal: Decreased range of motion to the first metatarsophalangeal joint of the right foot. 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 No pain with palpationto the full-thickness ulceration of the right foot. No pain with calf compression. Const alert and oriented x3 Debridement Note Debridement Note Debridement Free Text: Excisional debridement of the full-thickness ulceration to the medial aspect of the first metatarsophalangeal joint right foot down to and including subcutaneous tissue with a #15 blade without incident. Predebridement measurements were 0.4 x 0.2 x 0.3 cm, postdebridement measurementare 0.6 x 0.5 x 0.5 cm. Sanguinous drainage noted after debridement. Post-Debridement Measurements and Additional Note: Post-Debridement Measurements/Treatment - Nurse 1 - General Ulcer Assessment Start: 04/02/23 11:22 Freq: Status: Active Protocol: [email or web address] Activity Type Activity Date Activity User E-sign Co-sign Detail Recorded Client Recorded Date Recorded By Document 04/02/23 11:24 [id number] 04/02/23 11:25 Document 04/18/23 13:24 [facility] [id number] 04/18/23 13:30 [facility] 04/02/23 04/18/23 11:24 13:24 - Today's Visit Information Type of service Follow-up Visit Follow-up Visit (Physician/CARPET YARN WINDER OPERATOR (Physician/CARPET YARN WINDER OPERATOR ) ) Arrival Mode Ambulatory,Cane Ambulatory,Cane Transfer Assistance None None Accompanied by WEI IN LAW Patient Identification Verified (Name & Yes Yes ) Patient Requires Transmission-Based No No Precautions Safety Precautions NA Vital Signs Temperature (97.8 F-99.1 F) 98.6 F 97.5 F L Temperature Source Temporal Temporal Pulse Rate (60-100) 101 H 109 H Pulse Location Monitor Respiratory Rate (12-18) 20 H 16 Respiratory rate source Observation Oxygen Delivery Method Room Air Blood Pressure (90/60-120/80) 114/55 L 141/77 H Blood Pressure Mean (mm Hg) 74 98 Source Monitor Position Sitting Blood Pressure Location Left Forearm History Since Last Visit- (Skip if this is Patient's initial visit) Have you changed medications since your No No last visit? Any new allergies or adverse reactions No No Had a fall/change in ADL's that may No No increase risk of falls Signs or symptoms of abuse and/or No No neglect since last visit Have you been in the hospital since your No No last visit? Has dressing in place as prescribed Yes Yes Has compression in place as prescribed N/A N/A Has offloadiing in place as prescribed N/A Yes Experienced any changes in pain level or No No management Left Footwear Custom Shoe Right Footwear Custom Shoe Pain Scale: 0-10 Numeric Is Patient Pain Free? Yes Yes URBAN - Nurse 1 - General Ulcer Measurement Start: 04/02/23 11:22 Freq: Status: Active Protocol: Activity Type Activity Date Activity User E-sign Co-sign Detail Recorded Client Recorded Date Recorded By Document 04/18/23 13:24 [facility] [id number] 04/18/23 13:30 [facility] 04/18/23 13:24 Wound Center Nurse 1 #9 Right Inferior Hallux -Combined with other wound No -Current Size (cm) - Length 0.4 -Current Size (cm) - Width 0.2 -Current Size (cm) - Depth 0.3 -Total Square Cm 0.08 -Photo Taken No -Epithelialization None Present -Tunneling No -Undermining/Tunneling No -Circular Undermining No -Exudate Amt Medium -Exudate Type Serous -Wound Margin Distinct, Outline Attached -Granulation Amt Large (67-100%) -Granulation Quality [place] -Slough/Fibrin No -Necrosis Amt None Present (0 %) -Texture (Anna-wound Skin Appearance) Assessed, Scarring -Moisture (Anna-wound Skin Appearance) Assessed -Color (Anna-wound Skin Appearance) Assessed -Temperature (Anna-wound Skin No Abnormality Appearance) (Pt Warm) -Tenderness on Palpation (Anna-wound No Skin Appearance) -Ulcer Cleansing Rinsed/ Irrigated with Saline -Foul Odor after Cleansing No -Anesthetic Used 5% Lidocaine Gel URBAN - Nurse 2 - General Ulcer CM Notes Start: 04/02/23 11:22 Freq: Status: Active Protocol: Activity Type Activity Date Activity User E-sign Co-sign Detail Recorded Client Recorded Date Recorded By Document 04/02/23 11:42 [id number] 04/02/23 11:53 Document 04/18/23 14:03 [id number] 04/18/23 14:04 04/02/23 04/18/23 11:42 14:03 Wound Center Nurse 2 #9 Right Inferior Hallux -Time 11:53 14:04 -Correct Patient Yes Yes -Correct Side, Site, Position Yes Yes -Correct Procedure Yes Yes -Procedure Performed Yes Yes -Type of Procedure Debridement Debridement -Clinical Debridement Subcutaneous Subcutaneous -Tissue Removed Subcutaneous Subcutaneous -Post Debridement (cm) - Length 0.6 0.6 -Post Debridement (cm) - Width 0.6 0.5 -Post Debridement (cm) - Depth 0.2 0.5 -Total Square (Post) (cm) 0.36 0.30 -Area of Debridement (cm) - Length 0.6 0.6 -Area of Debridement (cm) - Width 0.6 0.5 -Total Square (Area) (cm) 0.36 0.30 -Tunneling No No -Undermining/Tunneling No No -Circular Undermining No No -Wound/Ulcer Outcome Not Healed Not Healed -Ulcer Cleansing Rinsed/ Rinsed/ Irrigated with Irrigated with Saline Saline -Foul Odor after Cleansing No No -Bioengineered Tissue No No -Bleeding Controlled with Pressure Pressure -Treatment Response Procedure Procedure Tolerated Well Tolerated Well -Offloading No No -Debridement - Subq, 1st 20sq cm Yes Yes Pain Scale: 0-10 Numeric Is Patient Pain Free? Yes Yes - Nurse 3 - General Ulcer D/C NN Start: 04/02/23 11:22 Freq: Status: Active Protocol: Activity Type Activity Date Activity User E-sign Co-sign Detail Recorded Client Recorded Date Recorded By Document 04/02/23 11:54 [id number] 04/02/23 11:54 Document 04/18/23 14:24 RB [id number] 04/18/23 14:25 RB 04/02/23 04/18/23 11:54 14:24 Wound Care Center Nurse 3 #9 Right Inferior Hallux -Ulcer Cleansing Rinsed/ paint with Irrigated with betadine Saline periulcer -Foul Odor after Cleansing No -Primary Dressing Applied NonAdherent NonAdherent Contact Layer, Contact Layer, Promogran Promogran -Primary Dressing Covered/Secured with Dry Gauze, Dry Gauze, Secured with Secured with Tape Tape -Promogran 1 1 Treatment Response Procedure Tolerated Well Pain Scale: 0-10 Numeric Is Patient Pain Free? Yes Yes Teaching: Wound Center Dressing Your Wound -Person Taught Patient,Family -Teaching Method Discussion, Demonstration -Response to teaching Verbalize understanding WC - Visit Discharge Discharge Condition Stable Stable Ambulatory Status Ambulatory,Cane Ambulatory Transportation Private Auto Private Auto Accompanied by LUPE Medication Reconcilliation completed & Yes No provided to patient/care provider Clinical Summary of Care Provided Yes Yes Assessment/Plan Assessment/Plan (1) Type 2 diabetes mellitus with diabetic polyneuropathy: CODE(S): E11.42 - Type 2 diabetes mellitus with diabetic polyneuropathy QUALIFIERS: Diabetes mellitus intermediate card tender insulin use: with intermediate card tender use Qualified Code(s): E11.42 - Type 2 diabetes mellitus with diabetic polyneuropathy; Z79.4 - terminal gauger supervisor (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 of insulin PLAN: Educated the patient continue to keep his blood sugar around 150 as well as to monitor his sugar before and after meals. (2) Ulcer of right foot with fat layer exposed: CODE(S): L97.512 - Non-pressure chronic ulcer of other part of right foot with fat layer exposed PLAN: Patient was examined evaluated. All findings were discussed with the patient. All questions were answered to the patient satisfaction. Patient shows no evidence of infection to the right foot at the level of the full-thickness ulceration. Educated the patient on treatment options conservative versus surgical. The patient would either benefit from a silver bunionectomy orfirst metatarsal phalangeal joint arthrodesis of the right foot. This is all educated to the patient and daughter especially given the patient's age of [age] years old and having to go under anesthesia versus local anesthesia treatment. The patient will think about it. Patient will be given an order for right foot weightbearing x-rays as well as for PVRs with TBI's segmental at rest bilateral. Follow-up in 1 week. (3) Peripheral vascular disease: CODE(S): I73.9 - Peripheral vascular disease, unspecified 04/18/231911 <Electronically signed by Joaquim Suárez DPM> Cosigner Signature (if applicable): CC: ~ Signed [facility] Work Phone: 1(236) 624-109508-20-2023 Progress note Author Bonny Glynn [facility] April 07, 2023 10:44pm Note Date/Time April 02, 2023 12 :35pm [facility] [address] [place] [address] Progress Note - Wound Care 04/02/23 1235 MR#: [id number] Acct: [id number] Name: PEDRO HILLMAN Rep #:[id number] : 1945 78 From: Bonny garcia SENIOR BOILER OPERATOR SENIOR BOILER OPERATOR-C PCP: Dr. Tonio Fajardo, DO Status:REG RCR Location: History of Present Illness Date of Service: 04/02/23 Chief Complaint: right medial foot ulcer History of Wound: This 78-year-old male returns to the wound healing clinic for reoccurrence of a right medial foot ulcer. Patient with diabetic neuropathic. 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 Patient offloading right foot with surgical shoe. Wound culture from 07/18/22 positive for Staphylococcus pseudintermediu, he completed Augmentin. Wound culture from 01/08/23 positive for Staphylococcus pseudintermediu, he completed the Augmentin BID. Vascular:? 12/19/21 - Right EULALIA - 1.15, Left EULALIA 1.06.? Right digital 0.74, Left digital 0.71, bilateral triphasic. Venous studies showed bilateral no DVT, Bilateral calf with primary veins with reflux, bilateral SPJ reflux. Wound care - He completed 10 applications of Epifix. Bactroban ointment coveredwith adaptic and topped with gauze. Patient denies constitutional's or pains at this time. No other complaints. Progress of Wound: Right hallux ulcer is slightly smaller. He did not have the overgrowth of callusthis week. He has cut out a portion of his shoe to help with the off loading. Objective Data Objective Data Vital Signs: Vital Signs Temp Pulse Resp BP 98.6 F 101 H 20 H 114/55 L 04/02/23 11:24 04/02/23 11:24 04/02/23 11:24 04/02/23 11:24 Charges/Coding Procedures Integumentary 111xxx-113xx: 37315 Mihaela subq tissue 20 sq cm/< Debridement Note Debridement Note Wound debrided: medial foot ulcer Laterality: Right Type of Debridement: Excisional debridement Anesthesia Used: 5% Lidocaine Gel Depth: Down to and including healthy tissue and in the subcutaneous layer Percentage of wound debrided: 100 Instrument Used: 3mm curette Tissue Removed: Devitalized tissue and slough Severity: Fat Layer Exposed Amount of bleeding with debridement: Mild Bleeding Controlled with: Compression and gauze Patient tolerated procedure: Patient tolerated procedure well Post-Debridement Measurements and Additional Note: Post-Debridement Measurements/Treatment - Nurse 1 - General Ulcer Assessment Start: 04/02/23 11:22 Freq: Status: Active Protocol: HEMA Activity Type Activity Date Activity User E-sign Co-sign Detail Recorded Client Recorded Date Recorded By Document 04/02/23 11:24 KIM [id number] 04/02/23 11:25 PL 04/02/23 11:24 - Today's Visit Information Type of service Follow-up Visit (Physician/CARPET YARN WINDER OPERATOR ) Arrival Mode Ambulatory,Cane Transfer Assistance None Patient Identification Verified (Name & Yes ) Patient Requires Transmission-Based No Precautions Safety Precautions NA Vital Signs Temperature (97.8 F-99.1 F) 98.6 F Temperature Source Temporal Pulse Rate (60-100) 101 H Respiratory Rate (12-18) 20 H Blood Pressure (90/60-120/80) 114/55 L Blood Pressure Mean (mm Hg) 74 History Since Last Visit- (Skip if this is Patient's initial visit) Have you changed medications since your No last visit? Any new allergies or adverse reactions No Had a fall/change in ADL's that may No increase risk of falls Signs or symptoms of abuse and/or No neglect since last visit Have you been in the hospital since your No last visit? Has dressing in place as prescribed Yes Has compression in place as prescribed N/A Has offloadiing in place as prescribed N/A Experienced any changes in pain level or No management Pain Scale: 0-10 Numeric Is Patient Pain Free? Yes - Nurse 2 - General Ulcer CM Notes Start: 04/02/23 11:22 Freq: Status: Active Protocol: Activity Type Activity Date Activity User E-sign Co-sign Detail Recorded Client Recorded Date Recorded By Document 04/02/23 11:42 DORA [id number] 04/02/23 11:53 DORA 04/02/23 11:42 Wound Center Nurse 2 #9 Right Inferior Hallux -Time 11:53 -Correct Patient Yes -Correct Side, Site, Position Yes -Correct Procedure Yes -Procedure Performed Yes -Type of Procedure Debridement -Clinical Debridement Subcutaneous -Tissue Removed Subcutaneous -Post Debridement (cm) - Length 0.6 -Post Debridement (cm) - Width 0.6 -Post Debridement (cm) - Depth 0.2 -Total Square (Post) (cm) 0.36 -Area of Debridement (cm) - Length 0.6 -Area of Debridement (cm) - Width 0.6 -Total Square (Area) (cm) 0.36 -Tunneling No -Undermining/Tunneling No -Circular Undermining No -Wound/Ulcer Outcome Not Healed -Ulcer Cleansing Rinsed/ Irrigated with Saline -Foul Odor after Cleansing No -Bioengineered Tissue No -Bleeding Controlled with Pressure -Treatment Response Procedure Tolerated Well -Offloading No -Debridement - Subq, 1st 20sq cm Yes Pain Scale: 0-10 Numeric Is Patient Pain Free? Yes - Nurse 3 - General Ulcer D/C NN Start: 04/02/23 11:22 Freq: Status: Active Protocol: Activity Type Activity Date Activity User E-sign Co-sign Detail Recorded Client Recorded Date Recorded By Document 04/02/23 11:54 [id number] 04/02/23 11:54 04/02/23 11:54 Wound Care Center Nurse 3 #9 Right Inferior Hallux -Ulcer Cleansing Rinsed/ Irrigated with Saline -Foul Odor after Cleansing No -Primary Dressing Applied NonAdherent Contact Layer, Promogran -Primary Dressing Covered/Secured with Dry Gauze, Secured with Tape -Promogran 1 Pain Scale: 0-10 Numeric Is Patient Pain Free? Yes - Visit Discharge Discharge Condition Stable Ambulatory Status Ambulatory,Cane Transportation Private Auto Accompanied by LUPE Medication Reconcilliation completed & Yes provided to patient/care provider Clinical Summary of Care Provided Yes Assessment/Plan Assessment/Plan (1) Type 2 diabetes mellitus with diabetic polyneuropathy: CODE(S): E11.42 - Type 2 diabetes mellitus with diabetic polyneuropathy (2) Non-pressure chronic ulcer of other part of right foot with fat layer exposed: CODE(S): L97.512 - Non-pressure chronic ulcer of other part of right foot with fat layer exposed (3) History of malignant neoplasm of lung in adulthood: CODE(S): Z85.118 - Personal history of other malignant neoplasm of bronchus and lung PLAN: Plan Patient was evaluated at the wound healing center today.? Wound care - Ten applications of Epifix completed. Moistened Cass topped with adpatic covered with gauze to the medial foot ulcer daily after washing with soap and water. Compression - Single tubigrip Off-loading - Diabetic shoe with a cut out area of his shoe to prevent pressure on his hallux to help prevent pressure. He is not a candidate for TCC or knee scooter due to his instability with walking. Stressed the importance of off loading and not putting pressure on this portion of his foot. Vascular:? 12/19/21 - Right EULALIA - 1.15, Left EULALIA 1.06.? Right digital 0.74, Left digital 0.71, bilateral triphasic. Venous studies showed bilateral no DVT, Bilateral calf with primary veins with reflux, bilateral SPJ reflux. A wound culture was obtained on 01/08/23 which was positive for Staphylococcus pseudintermediu. He was treated with Augmentin. Wound culture obtained on 07/18/22 positive for Staphylococcus pseudintermediu, he completed Augmentin. Wound culture obtained on 05/18/22 which was positive for Staphylococcus pseudintermediu, Staphylococcus saprophyticus and Anaerobic cocci.? Continue Augmentin. Encouraged high protein diet that is low in carbohydrates and sodium. Now that the wound center will have a career resource technician, will have the patient see him for further evaluation and treatment. Follow up two weeks. Call or come in sooner if develop any questions or concerns. 04/07/23 3024 <Electronically signed by Bonny Glynn NP SENIOR BOILER OPERATOR-C> Cosigner Signature (if applicable): CC: ~ Signed [facility] Work Phone: 1(323) 451-213607-17-2023 Progress note Author Bonny Gylnn [facility] March 05, 2023 1:06pm Note Date/Time March 05, 2023 12:2 9pm [facility] [address] [place] [address] Progress Note - Wound Care 03/05/23 1226 MR#: [id number] Acct: [id number] Name: PEDRO HILLMAN Rep #:[id number] : 1945 78 From: Bonny garcia NP SENIOR BOILER OPERATOR-C PCP: Dr. Tonio Fajardo, DO Status:REG RCR Location: History of Present Illness Date of Service: 03/05/23 Chief Complaint: right medial foot ulcer History of Wound: This 78-year-old male returns to the wound healing clinic for reoccurrence of a right medial foot ulcer. Patient with diabetic neuropathic. 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 Patient offloading right foot with surgical shoe. Wound culture from 07/18/22 positive for Staphylococcus pseudintermediu, he completed Augmentin. Wound culture from 01/08/23 positive for Staphylococcus pseudintermediu, he completed the Augmentin BID. Vascular:? 12/19/21 - Right EULALIA - 1.15, Left EULALIA 1.06.? Right digital 0.74, Left digital 0.71, bilateral triphasic. Venous studies showed bilateral no DVT, Bilateral calf with primary veins with reflux, bilateral SPJ reflux. Wound care - He completed 10 applications of Epifix. Bactroban ointment coveredwith adaptic and topped with gauze. Patient denies constitutional's or pains at this time. No other complaints. Progress of Wound: Right hallux ulcer is slightly smaller. He now is having issues with skin growing over the ulcer but the base of the ulcer is not getting smaller. He has been wearing the double stacked AMD foam and post op shoe to help prevent pressure on the area. Objective Data Objective Data Vital Signs: Vital Signs Temp Pulse Resp BP O2 Del Method 97.0 F L 104 H 16 130/62 H Room Air 03/05/23 11:26 03/05/23 11:26 03/05/23 11:26 03/05/23 11:26 03/05/23 11:26 Oxygen Delivery Method Room Air Charges/Coding Procedures Integumentary 111xxx-113xx: 54004 Mihaela subq tissue 20 sq cm/< Debridement Note Debridement Note Wound debrided: medial foot ulcer Laterality: Right Wound Grade/Stage: Stage III Type of Debridement: Excisional debridement Anesthesia Used: 5% Lidocaine Gel Depth: Down to and including healthy tissue and in the subcutaneous layer Percentage of wound debrided: 100 Instrument Used: 3mm curette Tissue Removed: Devitalized tissue and slough Severity: Fat Layer Exposed Amount of bleeding with debridement: Mild Bleeding Controlled with: Compression and gauze Patient tolerated procedure: Patient tolerated procedure well Post-Debridement Measurements and Additional Note: Post-Debridement Measurements/Treatment - Nurse 1 - General Ulcer Assessment Start: 02/19/23 13:34 Freq: Status: Active Protocol: HEMA Activity Type Activity Date Activity User E-sign Co-sign Detail Recorded Client Recorded Date Recorded By Document 02/19/23 13:34 [id number] 02/19/23 13:36 JF Document 03/05/23 11:26 KW [id number] 03/05/23 11:29 KW 02/19/23 03/05/23 13:34 11:26 - Today's Visit Information Type of service Follow-up Visit Follow-up Visit (Physician/CARPET YARN WINDER OPERATOR (Physician/CARPET YARN WINDER OPERATOR ) ) Arrival Mode Ambulatory Ambulatory,Cane Accompanied by family- Daughter Patient Identification Verified (Name & Yes ) Patient Requires Transmission-Based No Precautions Finger Stick Blood Sugar(mg/dl) (if 143 indicated): Blood Sugar Stated by Patient Vital Signs Temperature (97.8 F-99.1 F) 96.9 F L 97.0 F L Temperature Source Temporal Temporal Pulse Rate (60-100) 103 H 104 H Pulse Location Monitor Monitor Respiratory Rate (12-18) 16 16 Respiratory rate source Observation Observation Oxygen Delivery Method Room Air Blood Pressure (90/60-120/80) 116/62 130/62 H Blood Pressure Mean (mm Hg) 80 84 Source Monitor Monitor Position Semi-Fowlers Semi-Fowlers Blood Pressure Location Left Arm Left Arm History Since Last Visit- (Skip if this is Patient's initial visit) Have you changed medications since your No No last visit? Any new allergies or adverse reactions No No Had a fall/change in ADL's that may No No increase risk of falls Signs or symptoms of abuse and/or No No neglect since last visit Have you been in the hospital since your No No last visit? Has dressing in place as prescribed Yes Yes Has compression in place as prescribed Yes No Has offloadiing in place as prescribed N/A No Experienced any changes in pain level or No No management Left Footwear Regular Shoe Regular Shoe Right Footwear Surgical Shoe Surgical Shoe with pressure with pressure relief insole relief insole Pain Scale: 0-10 Numeric Is Patient Pain Free? Yes Yes - Nurse 1 - General Ulcer Measurement Start: 02/19/23 13:34 Freq: Status: Active Protocol: Activity Type Activity Date Activity User E-sign Co-sign Detail Recorded Client Recorded Date Recorded By Document 02/19/23 13:34 [id number] 02/19/23 13:36 Document 03/05/23 11:26 [id number] 03/05/23 11:29 02/19/23 03/05/23 13:34 11:26 Wound Center Nurse 1 #9 Right Inferior Hallux -Combined with other wound No -Current Size (cm) - Length 0.1 0.4 -Current Size (cm) - Width 0.1 0.3 -Current Size (cm) - Depth 0.1 0.2 -Total Square Cm 0.01 0.12 -Photo Taken No No -Epithelialization Large 67-100% -Tunneling No -Undermining/Tunneling No -Circular Undermining No -Exudate Amt None Present Small -Exudate Type Serosanguineous -Wound Margin Flat & Intact Distinct, Outline Attached -Granulation Amt Large (67-100%) Small (1-33%) -Granulation Quality [place] Patent -Slough/Fibrin No -Necrosis Amt Small (1-33%) -Structure Exposed N/A None/Limited to Skin Breakdown -Texture (Anna-wound Skin Appearance) Assessed Assessed,Callus -Moisture (Anna-wound Skin Appearance) Assessed,Dry/ Assessed Scaly -Color (Anna-wound Skin Appearance) Assessed Assessed,Palor -Temperature (Anna-wound Skin No Abnormality No Abnormality Appearance) (Pt Warm) (Pt Warm) -Tenderness on Palpation (Anna-wound No No Skin Appearance) -Ulcer Cleansing Rinsed/ Rinsed/ Irrigated with Irrigated with Saline Saline -Foul Odor after Cleansing No No -Anesthetic Used 5% Lidocaine Gel Lower Limb Edema Present NA NA WC - Nurse 2 - General Ulcer CM Notes Start: 02/19/23 13:34 Freq: Status: Active Protocol: Activity Type Activity Date Activity User E-sign Co-sign Detail Recorded Client Recorded Date Recorded By Document 02/19/23 13:37 [id number] 02/19/23 13:39 Document 03/05/23 11:37 [id number] 03/05/23 11:46 02/19/23 03/05/23 13:37 11:37 Wound Center Nurse 2 #9 Right Inferior Hallux -Time 13:38 11:38 -Correct Patient Yes Yes -Correct Side, Site, Position Yes Yes -Correct Procedure Yes Yes -Procedure Performed Yes Yes -Type of Procedure Debridement Debridement -Clinical Debridement Subcutaneous Subcutaneous -Tissue Removed Subcutaneous Subcutaneous -Post Debridement (cm) - Length 0.4 0.4 -Post Debridement (cm) - Width 0.4 0.4 -Post Debridement (cm) - Depth 0.2 0.2 -Total Square (Post) (cm) 0.16 0.16 -Area of Debridement (cm) - Length 0.4 0.4 -Area of Debridement (cm) - Width 0.4 0.4 -Total Square (Area) (cm) 0.16 0.16 -Tunneling No No -Undermining/Tunneling No No -Circular Undermining No No -Wound/Ulcer Outcome Not Healed Not Healed -Ulcer Cleansing Rinsed/ Rinsed/ Irrigated with Irrigated with Saline Saline -Foul Odor after Cleansing No No -Bioengineered Tissue No No -Bleeding Controlled with Pressure Pressure -Treatment Response Procedure Procedure Tolerated Well Tolerated Well -Offloading Yes Yes -Type of Offloading Surgical Shoe Surgical Shoe -Debridement - Subq, 1st 20sq cm Yes Yes Pain Scale: 0-10 Numeric Is Patient Pain Free? Yes Yes WC - Nurse 3 - General Ulcer D/C NN Start: 02/19/23 13:34 Freq: Status: Active Protocol: Activity Type Activity Date Activity User E-sign Co-sign Detail Recorded Client Recorded Date Recorded By Document 02/19/23 13:43 MW [id number] 02/19/23 13:44 MW Document 03/05/23 11:53 [facility] [id number] 03/05/23 11:55 BM 02/19/23 03/05/23 13:43 11:53 Wound Care Center Nurse 3 #9 Right Inferior Hallux -Ulcer Cleansing Rinsed/ Rinsed/ Irrigated with Irrigated with Saline Saline -Foul Odor after Cleansing No No -Negative Pressure Wound Therapy N/A -Other Dressing BACTROBAN bactroban -Primary Dressing Covered/Secured with Dry Gauze, Dry Gauze, Secured with Secured with Tape Tape -Other Covering apperture Treatment Response Procedure Procedure Tolerated Well Tolerated Well Pain Scale: 0-10 Numeric Is Patient Pain Free? Yes Yes Teaching: Wound Center Dressing Your Wound -Person Taught Patient -Teaching Method Discussion -Response to teaching Verbalize understanding WC - Visit Discharge Discharge Condition Stable Stable Ambulatory Status Ambulatory,Cane Ambulatory,Cane Transportation Private Auto Private Auto Accompanied by DAUGHTER wei in law Medication Reconcilliation completed & No provided to patient/care provider Clinical Summary of Care Provided Yes Notes: DRESSING APPLIED PER Fabio WOODS RN. TOLERATED WELL. Assessment/Plan Assessment/Plan (1) Type 2 diabetes mellitus with diabetic polyneuropathy: CODE(S): E11.42 - Type 2 diabetes mellitus with diabetic polyneuropathy (2) Non-pressure chronic ulcer of other part of right foot with fat layer exposed: CODE(S): L97.512 - Non-pressure chronic ulcer of other part of right foot with fat layer exposed (3) History of malignant neoplasm of lung in adulthood: CODE(S): Z85.118 - Personal history of other malignant neoplasm of bronchus and lung PLAN: Plan Patient was evaluated at the wound healing center today.? Wound care - Ten applications of Epifix completed. Bactroban ointment covered with gauze to the medial foot ulcer daily after washing with soap and water. Compression - Single tubigrip Off-loading - Suman shoe has been re-adjusted at the foot and ankle clinic. Alsoplacing the double stacked AMD foam to help prevent pressure on his foot and wrapped with cling. Discussed placing a TCC on him but he is not steady on his feet normally, therefore a TCC would be hazardous for him. Stressed the importance of off loading and not putting pressure on this portion of his foot. Vascular:? 12/19/21 - Right EULALIA - 1.15, Left EULALIA 1.06.? Right digital 0.74, Left digital 0.71, bilateral triphasic. Venous studies showed bilateral no DVT, Bilateral calf with primary veins with reflux, bilateral SPJ reflux. A wound culture was obtained on 01/08/23 which was positive for Staphylococcus pseudintermediu. He was treated with Augmentin. Wound culture obtained on 07/18/22 positive for Staphylococcus pseudintermediu, he completed Augmentin. Wound culture obtained on 05/18/22 which was positive for Staphylococcus pseudintermediu, Staphylococcus saprophyticus and Anaerobic cocci.? Continue Augmentin. Encouraged high protein diet that is low in carbohydrates and sodium. Follow up two weeks. Call or come in sooner if develop any questions or concerns. 03/05/23 1306 <Electronically signed by Bonny Glynn NP SENIOR BOILER OPERATOR-C> Cosigner Signature (if applicable): CC: ~ Signed [facility] Work Phone: 1(734) 314-457007-03-2023 Progress note Author Bonny Glynn [facility] February 19, 2023 2:23pm Note Date/Time February 19, 2023 2:16p m [facility] [address] [place] [address] Progress Note - Wound Care 02/19/23 1412 MR#: [id number] Acct: [id number] Name: PEDRO HILLMAN Rep #:[id number] : 1945 78 From: Bonny garcia NP SENIOR BOILER OPERATOR-C PCP: Dr. Tonio Fajardo, DO Status:REG RCR Location: History of Present Illness Date of Service: 02/19/23 Chief Complaint: right medial foot ulcer History of Wound: This 78-year-old male returns to the wound healing clinic for reoccurrence of a right medial foot ulcer. Patient with diabetic neuropathic. 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 Patient offloading right foot with surgical shoe. Wound culture from 07/18/22 positive for Staphylococcus pseudintermediu, he completed Augmentin. Wound culture from 01/08/23 positive for Staphylococcus pseudintermediu, he completed the Augmentin BID. Vascular:? 12/19/21 - Right EULALIA - 1.15, Left EULALIA 1.06.? Right digital 0.74, Left digital 0.71, bilateral triphasic. Venous studies showed bilateral no DVT, Bilateral calf with primary veins with reflux, bilateral SPJ reflux. Wound care - He completed 10 applications of Epifix. Bactroban ointment coveredwith adaptic and topped with gauze. Patient denies constitutional's or pains at this time. No other complaints. Progress of Wound: Right hallux ulcer is slightly smaller, he continues to have thickened callus that forms surrounding the ulcer. He completed the Augmentin for his positive wound cultures. He has been wearing the double stacked AMD foam to help prevent pressure on the area. Objective Data Objective Data Vital Signs: Vital Signs Temp Pulse Resp BP 96.9 F L 103 H 16 116/62 02/19/23 13:34 02/19/23 13:34 02/19/23 13:34 02/19/23 13:34 Charges/Coding Procedures Integumentary 111xxx-113xx: 83612 Mihaela subq tissue 20 sq cm/< Debridement Note Debridement Note Wound debrided: medial foot ulcer Laterality: Right Wound Grade/Stage: Stage III Type of Debridement: Excisional debridement Anesthesia Used: 5% Lidocaine Gel Depth: Down to and including healthy tissue and in the subcutaneous layer Percentage of wound debrided: 100 Instrument Used: 3mm curette Tissue Removed: Devitalized tissue and slough Severity: Fat Layer Exposed Amount of bleeding with debridement: Mild Bleeding Controlled with: Compression and gauze Patient tolerated procedure: Patient tolerated procedure well Debridement Free Text: Removed dried, callus area surrounding the ulcer the ulcer is smaller. Post-Debridement Measurements and Additional Note: Post-Debridement Measurements/Treatment - Nurse 1 - General Ulcer Assessment Start: 02/19/23 13:34 Freq: Status: Active Protocol: [email or web address] Activity Type Activity Date Activity User E-sign Co-sign Detail Recorded Client Recorded Date Recorded By Document 02/19/23 13:34 [id number] 02/19/23 13:36 02/19/23 13:34 - Today's Visit Information Type of service Follow-up Visit (Physician/CARPET YARN WINDER OPERATOR ) Arrival Mode Ambulatory Patient Requires Transmission-Based No Precautions Vital Signs Temperature (97.8 F-99.1 F) 96.9 F L Temperature Source Temporal Pulse Rate (60-100) 103 H Pulse Location Monitor Respiratory Rate (12-18) 16 Respiratory rate source Observation Blood Pressure (90/60-120/80) 116/62 Blood Pressure Mean (mm Hg) 80 Source Monitor Position Semi-Fowlers Blood Pressure Location Left Arm History Since Last Visit- (Skip if this is Patient's initial visit) Have you changed medications since your No last visit? Any new allergies or adverse reactions No Had a fall/change in ADL's that may No increase risk of falls Signs or symptoms of abuse and/or No neglect since last visit Have you been in the hospital since your No last visit? Has dressing in place as prescribed Yes Has compression in place as prescribed Yes Has offloadiing in place as prescribed N/A Experienced any changes in pain level or No management Left Footwear Regular Shoe Right Footwear Surgical Shoe with pressure relief insole Pain Scale: 0-10 Numeric Is Patient Pain Free? Yes - Nurse 1 - General Ulcer Measurement Start: 02/19/23 13:34 Freq: Status: Active Protocol: Activity Type Activity Date Activity User E-sign Co-sign Detail Recorded Client Recorded Date Recorded By Document 02/19/23 13:34 DORA [id number] 02/19/23 13:36 02/19/23 13:34 Wound Center Nurse 1 #9 Right Inferior Hallux -Combined with other wound No -Current Size (cm) - Length 0.1 -Current Size (cm) - Width 0.1 -Current Size (cm) - Depth 0.1 -Total Square Cm 0.01 -Photo Taken No -Epithelialization Large 67-100% -Tunneling No -Undermining/Tunneling No -Circular Undermining No -Exudate Amt None Present -Wound Margin Flat & Intact -Granulation Amt Large (67-100%) -Granulation Quality Red -Slough/Fibrin No -Structure Exposed N/A -Texture (Anna-wound Skin Appearance) Assessed -Moisture (Anna-wound Skin Appearance) Assessed,Dry/ Scaly -Color (Anna-wound Skin Appearance) Assessed -Temperature (Anna-wound Skin No Abnormality Appearance) (Pt Warm) -Tenderness on Palpation (Anna-wound No Skin Appearance) -Ulcer Cleansing Rinsed/ Irrigated with Saline -Foul Odor after Cleansing No Lower Limb Edema Present NA - Nurse 2 - General Ulcer CM Notes Start: 02/19/23 13:34 Freq: Status: Active Protocol: Activity Type Activity Date Activity User E-sign Co-sign Detail Recorded Client Recorded Date Recorded By Document 02/19/23 13:37 DORA [id number] 02/19/23 13:39 02/19/23 13:37 Wound Center Nurse 2 #9 Right Inferior Hallux -Time 13:38 -Correct Patient Yes -Correct Side, Site, Position Yes -Correct Procedure Yes -Procedure Performed Yes -Type of Procedure Debridement -Clinical Debridement Subcutaneous -Tissue Removed Subcutaneous -Post Debridement (cm) - Length 0.4 -Post Debridement (cm) - Width 0.4 -Post Debridement (cm) - Depth 0.2 -Total Square (Post) (cm) 0.16 -Area of Debridement (cm) - Length 0.4 -Area of Debridement (cm) - Width 0.4 -Total Square (Area) (cm) 0.16 -Tunneling No -Undermining/Tunneling No -Circular Undermining No -Wound/Ulcer Outcome Not Healed -Ulcer Cleansing Rinsed/ Irrigated with Saline -Foul Odor after Cleansing No -Bioengineered Tissue No -Bleeding Controlled with Pressure -Treatment Response Procedure Tolerated Well -Offloading Yes -Type of Offloading Surgical Shoe -Debridement - Subq, 1st 20sq cm Yes Pain Scale: 0-10 Numeric Is Patient Pain Free? Yes - Nurse 3 - General Ulcer D/C NN Start: 02/19/23 13:34 Freq: Status: Active Protocol: Activity Type Activity Date Activity User E-sign Co-sign Detail Recorded Client Recorded Date Recorded By Document 02/19/23 13:43 MW [id number] 02/19/23 13:44 MW 02/19/23 13:43 Wound Care Center Nurse 3 #9 Right Inferior Hallux -Ulcer Cleansing Rinsed/ Irrigated with Saline -Foul Odor after Cleansing No -Negative Pressure Wound Therapy N/A -Other Dressing BACTROBAN -Primary Dressing Covered/Secured with Dry Gauze, Secured with Tape Treatment Response Procedure Tolerated Well Pain Scale: 0-10 Numeric Is Patient Pain Free? Yes Teaching: Wound Center Dressing Your Wound -Person Taught Patient -Teaching Method Discussion -Response to teaching Verbalize understanding - Visit Discharge Discharge Condition Stable Ambulatory Status Ambulatory,Cane Transportation Private Auto Accompanied by DAUGHTER Medication Reconcilliation completed & No provided to patient/care provider Clinical Summary of Care Provided Yes Notes: DRESSING APPLIED PER Fabio WOODS RN. TOLERATED WELL. Assessment/Plan Assessment/Plan (1) Type 2 diabetes mellitus with diabetic polyneuropathy: CODE(S): E11.42 - Type 2 diabetes mellitus with diabetic polyneuropathy (2) Non-pressure chronic ulcer of other part of right foot with fat layer exposed: CODE(S): L97.512 - Non-pressure chronic ulcer of other part of right foot with fat layer exposed (3) History of malignant neoplasm of lung in adulthood: CODE(S): Z85.118 - Personal history of other malignant neoplasm of bronchus and lung PLAN: Plan Patient was evaluated at the wound healing center today.? Wound care - Ten applications of Epifix completed. Bactroban ointment covered with gauze to the medial foot ulcer daily after washing with soap and water. Apply Aquaphor or Vasoline to the dorsal aspect of foot to moisturize the dry, flaky, excoriated skin. Compression - Single tubigrip Off-loading - Suman shoe has been re-adjusted at the foot and ankle clinic. Alsoplacing the double stacked AMD foam to help prevent pressure on his foot and wrapped with cling. Discussed placing a TCC on him but he is not steady on his feet normally, therefore a TCC would be hazardous for him. Stressed the importance of off loading and not putting pressure on this portion of his foot. Vascular:? 12/19/21 - Right EULALIA - 1.15, Left EULALIA 1.06.? Right digital 0.74, Left digital 0.71, bilateral triphasic. Venous studies showed bilateral no DVT, Bilateral calf with primary veins with reflux, bilateral SPJ reflux. A wound culture was obtained on 01/08/23 which was positive for Staphylococcus pseudintermediu. He was treated with Augmentin. Wound culture obtained on 07/18/22 positive for Staphylococcus pseudintermediu, he completed Augmentin. Wound culture obtained on 05/18/22 which was positive for Staphylococcus pseudintermediu, Staphylococcus saprophyticus and Anaerobic cocci.? Continue Augmentin. Encouraged high protein diet that is low in carbohydrates and sodium. Follow up two weeks. Call or come in sooner if develop any questions or concerns. 02/19/23 1423 <Electronically signed by Bonny Glynn NP SENIOR BOILER OPERATOR-C> Cosigner Signature (if applicable): CC: ~ Signed [facility] Work Phone: 1(879) 252-373006-19-2023 Progress note Author Bonny Glynn [facility] February 05, 2023 2:37pm Note Date/Time February 05, 2023 1:59 pm [facility] [address] [place] [address] Progress Note - Wound Care 02/05/23 1359 MR#: [id number] Acct: [id number] Name: PEDRO HILLMAN #:[id number] : 1945 78 From: Bonny garcia SENIOR BOILER OPERATOR SENIOR BOILER OPERATOR-C PCP: Dr. Tonio Fajardo, DO Status:REG RCR Location: History of Present Illness Date of Service: 02/05/23 Chief Complaint: right medial foot ulcer History of Wound: This 78-year-old male returns to the wound healing clinic for reoccurrence of a right medial foot ulcer. Wound care has been Moistened Cass covered with Rippey SAP dressing. Patient diabetic neuropathic. 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 Patient offloading right foot with surgical shoe. Wound culture from 07/18/22 positive for Staphylococcus pseudintermediu, he completed Augmentin. Wound culture from 01/08/23 positive for Staphylococcus pseudintermediu, he is treated with Augmentin BID. Wound care - He completed 10 applications of Epifix. Moistened Cass covered with adaptic and topped with gauze. Patient denies constitutional's or pains at this time. No other complaints. Progress of Wound: Right hallux ulcer is slightly smaller, he continues to have thickened callus that forms surrounding the ulcer. He is tolerating the Augmentin for his positive wound cultures. Objective Data Objective Data Vital Signs: Vital Signs Temp Pulse Resp BP O2 Del Method 97.6 F L 109 H 18 160/76 H Room Air 02/05/23 13:10 02/05/23 13:10 02/05/23 13:10 02/05/23 13:10 02/05/23 13:10 Oxygen Delivery Method Room Air Charges/Coding Procedures Integumentary 111xxx-113xx: 92450 Mihaela subq tissue 20 sq cm/< Debridement Note Debridement Note Wound debrided: medial foot ulcer Laterality: Right Wound Grade/Stage: Stage III Type of Debridement: Excisional debridement Anesthesia Used: 5% Lidocaine Gel Depth: Down to and including healthy tissue and in the subcutaneous layer Percentage of wound debrided: 100 Instrument Used: 3mm curette Tissue Removed: Devitalized tissue and slough Severity: Fat Layer Exposed Amount of bleeding with debridement: Mild Bleeding Controlled with: Compression and gauze Patient tolerated procedure: Patient tolerated procedure well Debridement Free Text: Removed dried, callus area surrounding the ulcer. Post-Debridement Measurements and Additional Note: Post-Debridement Measurements/Treatment WC - Nurse 1 - General Ulcer Assessment Start: 01/22/23 13:42 Freq: Status: Active Protocol: HEMA Activity Type Activity Date Activity User E-sign Co-sign Detail Recorded Client Recorded Date Recorded By Document 01/22/23 13:45 DL [id number] 01/22/23 13:48 DL Document 02/05/23 13:10 BM [id number] 02/05/23 13:15 BMF 01/22/23 02/05/23 13:45 13:10 WC - Today's Visit Information Type of service Follow-up Visit Follow-up Visit (Physician/CARPET YARN WINDER OPERATOR (Physician/CARPET YARN WINDER OPERATOR ) ) Arrival Mode Ambulatory Ambulatory,Cane Transfer Assistance None None Patient Identification Verified (Name & Yes Yes ) Patient Requires Transmission-Based No No Precautions Vital Signs Temperature (97.8 F-99.1 F) 97 F L 97.6 F L Temperature Source Temporal Temporal Pulse Rate (60-100) 112 H 109 H Pulse Location Monitor Monitor Respiratory Rate (12-18) 67 H 18 Respiratory rate source Observation Observation Oxygen Delivery Method Room Air Blood Pressure (90/60-120/80) 129/69 H 160/76 H Blood Pressure Mean (mm Hg) 89 104 Source Monitor Position Sitting Blood Pressure Location Left Arm History Since Last Visit- (Skip if this is Patient's initial visit) Have you changed medications since your No No last visit? Any new allergies or adverse reactions No No Had a fall/change in ADL's that may No No increase risk of falls Signs or symptoms of abuse and/or No No neglect since last visit Have you been in the hospital since your No No last visit? Has dressing in place as prescribed Yes Yes Has compression in place as prescribed N/A N/A Has offloadiing in place as prescribed Yes Yes Experienced any changes in pain level or No No management Left Footwear Diabetic Shoe Right Footwear Surgical Shoe with pressure relief insole Pain Scale: 0-10 Numeric Is Patient Pain Free? Yes Yes - Nurse 1 - General Ulcer Measurement Start: 01/22/23 13:42 Freq: Status: Active Protocol: Activity Type Activity Date Activity User E-sign Co-sign Detail Recorded Client Recorded Date Recorded By Document 01/22/23 13:45 DL [id number] 01/22/23 13:48 DL Document 02/05/23 13:10 [facility] [id number] 02/05/23 13:15 [facility] 01/22/23 02/05/23 13:45 13:10 Wound Center Nurse 1 #9 Right Inferior Hallux -Combined with other wound No -Current Size (cm) - Length 0.3 0.1 -Current Size (cm) - Width 0.3 0.1 -Current Size (cm) - Depth 0.3 0.2 -Total Square Cm 0.09 0.01 -Date of Last Picture (Recall this 02/05/23 field) -Photo Taken Yes Yes -Epithelialization None Present -Tunneling No -Undermining/Tunneling Yes -Undermining/Tunneling Starts (O'clock 12 ) -Undermining/Tunneling Ends (O'clock) 12 -Maximum Distance (cm) 0.2 -Maximum Distance #2 (cm) 0.3 -Circular Undermining Yes Yes -Exudate Amt Medium Small -Exudate Type Serosanguineous Serosanguineous -Wound Margin Distinct, Distinct, Outline Outline Attached Attached -Granulation Amt None Present (0 Large (67-100%) %) -Granulation Quality [place] -Slough/Fibrin Yes -Necrosis Amt Small (1-33%) Small (1-33%) -Necrotic Tissue Type Adherent Slough Adherent Slough -Structure Exposed N/A -Texture (Anna-wound Skin Appearance) Scarring Assessed,Callus ,Scarring -Moisture (Anna-wound Skin Appearance) Maceration Assessed -Color (Anna-wound Skin Appearance) No Abnormality Assessed -Temperature (Anna-wound Skin No Abnormality No Abnormality Appearance) (Pt Warm) (Pt Warm) -Tenderness on Palpation (Anna-wound No No Skin Appearance) -Ulcer Cleansing Rinsed/ Rinsed/ Irrigated with Irrigated with Saline Saline -Foul Odor after Cleansing No No -Anesthetic Used 5% Lidocaine 5% Lidocaine Gel Gel WC - Nurse 2 - General Ulcer CM Notes Start: 01/22/23 13:42 Freq: Status: Active Protocol: Activity Type Activity Date Activity User E-sign Co-sign Detail Recorded Client Recorded Date Recorded By Document 01/22/23 14:22 [id number] 01/22/23 14:23 01/22/23 14:22 Wound Center Nurse 2 -Time 14:22 -Correct Patient Yes -Correct Side, Site, Position Yes -Correct Procedure Yes -Procedure Performed Yes -Type of Procedure Debridement -Clinical Debridement Subcutaneous -Tissue Removed Subcutaneous -Post Debridement (cm) - Length 0.5 -Post Debridement (cm) - Width 0.5 -Post Debridement (cm) - Depth 0.2 -Total Square (Post) (cm) 0.25 -Area of Debridement (cm) - Length 0.5 -Area of Debridement (cm) - Width 0.5 -Total Square (Area) (cm) 0.25 -Tunneling No -Undermining/Tunneling No -Circular Undermining No -Wound/Ulcer Outcome Not Healed -Ulcer Cleansing Rinsed/ Irrigated with Saline -Foul Odor after Cleansing No -Bioengineered Tissue No -Bleeding Controlled with Pressure -Treatment Response Procedure Tolerated Well -Offloading Yes -Type of Offloading Surgical Shoe -Debridement - Subq, 1st 20sq cm Yes Pain Scale: 0-10 Numeric Is Patient Pain Free? Yes - Nurse 3 - General Ulcer D/C NN Start: 01/22/23 13:42 Freq: Status: Active Protocol: Activity Type Activity Date Activity User E-sign Co-sign Detail Recorded Client Recorded Date Recorded By Document 01/22/23 14:30 DL [id number] 01/22/23 14:31 DL Document 02/05/23 13:49 [facility] [id number] 02/05/23 13:49 [facility] 01/22/23 02/05/23 14:30 13:49 Wound Care Center Nurse 3 #9 Right Inferior Hallux -Ulcer Cleansing Rinsed/ Rinsed/ Irrigated with Irrigated with Saline Saline -Foul Odor after Cleansing No No -Other Dressing bactroban BACTROBAN -Primary Dressing Covered/Secured with Dry Gauze, Dry Gauze, Secured with Secured with Tape Tape -Other Covering APPERTURE PAD Treatment Response Procedure Procedure Tolerated Well Tolerated Well Pain Scale: 0-10 Numeric Is Patient Pain Free? Yes Yes - Visit Discharge Discharge Condition Stable Stable Ambulatory Status Ambulatory,Cane Ambulatory,Cane Transportation Private Auto Private Auto Facility Type Home Health Orders Sent Yes Assessment/Plan Assessment/Plan (1) Type 2 diabetes mellitus with diabetic polyneuropathy: CODE(S): E11.42 - Type 2 diabetes mellitus with diabetic polyneuropathy (2) Non-pressure chronic ulcer of other part of right foot with fat layer exposed: CODE(S): L97.512 - Non-pressure chronic ulcer of other part of right foot with fat layer exposed (3) History of malignant neoplasm of lung in adulthood: CODE(S): Z85.118 - Personal history of other malignant neoplasm of bronchus and lung PLAN: Plan Patient was evaluated at the wound healing center today.? Wound care - Ten applications of Epifix completed. Bactroban ointment covered with gauze to the medial foot ulcer daily after washing with soap and water. Apply Aquaphor or Vasoline to the dorsal aspect of foot to moisturize the dry, flaky, excoriated skin. Compression - Single tubigrip Off-loading - Suman shoe has been re-adjusted at the foot and ankle clinic. Alsoplacing the double stacked AMD foam to help prevent pressure on his foot and wrapped with cling. Discussed placing a TCC on him but he is not steady on his feet normally, therefore a TCC would be hazardous for him. Stressed the importance of off loading and not putting pressure on this portion of his foot. Vascular:? 12/19/21 - Right EULALIA - 1.15, Left EULALIA 1.06.? Right digital 0.74, Left digital 0.71, bilateral triphasic. Venous studies showed bilateral no DVT, Bilateral calf with primary veins with reflux, bilateral SPJ reflux. A wound culture was obtained on 01/08/23 which was positive for Staphylococcus pseudintermediu. He was started on Augmentin. Wound culture obtained on 07/18/22 positive for Staphylococcus pseudintermediu, he completed Augmentin. Wound culture obtained on 05/18/22 which was positive for Staphylococcus pseudintermediu, Staphylococcus saprophyticus and Anaerobic cocci.? Continue Augmentin. Encouraged high protein diet that is low in carbohydrates and sodium. Follow up two weeks. Call or come in sooner if develop any questions or concerns. 02/05/23 1437 <Electronically signed by Bonny Glynn NP SENIOR BOILER OPERATOR-C> Cosigner Signature (if applicable): CC: ~ Signed [facility] Work Phone: 1(686) 160-960206-05-2023 Progress note Author Bonny Glynn [facility] January 22, 2023 3:47pm Note Date/Time January 22, 2023 3:31p m [facility] [address] [place] [address] Progress Note - Wound Care 01/22/23 1529 MR#: [id number] Acct: [id number] Name: PEDRO HILLMAN Rep #:[id number] : 1945 78 From: Bonny garcia SENIOR BOILER OPERATOR SENIOR BOILER OPERATOR-C PCP: Dr. Tonio Fajardo, DO Status:REG RCR Location: History of Present Illness Date of Service: 01/22/23 Chief Complaint: right medial foot ulcer History of Wound: This 78-year-old male returns to the wound healing clinic for reoccurrence of a right medial foot ulcer. Wound care has been Moistened Cass covered with Rippey SAP dressing. Patient diabetic neuropathic. 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 Patient offloading right foot with surgical shoe. Wound culture from 07/18/22 positive for Staphylococcus pseudintermediu, he completed Augmentin. Wound culture from 01/08/23 positive for Staphylococcus pseudintermediu, he is treated with Augmentin BID. Wound care - He completed 10 applications of Epifix. Moistened Cass covered with adaptic and topped with gauze. Patient denies constitutional's or pains at this time. No other complaints. Progress of Wound: Right hallux ulcer has dry scabbing/callus surrounding the ulcer. Once that wasremoved, the ulcer itself is stable. Objective Data Objective Data Vital Signs: Vital Signs Temp Pulse Resp BP 97 F L 112 H 67 H 129/69 H 01/22/23 13:45 01/22/23 13:45 01/22/23 13:45 01/22/23 13:45 Charges/Coding Procedures Integumentary 111xxx-113xx: 78839 Mihaela subq tissue 20 sq cm/< Debridement Note Debridement Note Wound debrided: medial foot ulcer Laterality: Right Wound Grade/Stage: Stage III Type of Debridement: Excisional debridement Anesthesia Used: 5% Lidocaine Gel Depth: Down to and including healthy tissue and in the subcutaneous layer Percentage of wound debrided: 100 Instrument Used: 3mm curette and #15 blade Tissue Removed: Devitalized tissue and slough Severity: Fat Layer Exposed Amount of bleeding with debridement: Mild Bleeding Controlled with: Compression and gauze Patient tolerated procedure: Patient tolerated procedure well Debridement Free Text: Removed dried, callus area surrounding the ulcer. Post-Debridement Measurements and Additional Note: Post-Debridement Measurements/Treatment - Nurse 1 - General Ulcer Assessment Start: 01/22/23 13:42 Freq: Status: Active Protocol: HEMA Activity Type Activity Date Activity User E-sign Co-sign Detail Recorded Client Recorded Date Recorded By Document 01/22/23 13:45 DL [id number] 01/22/23 13:48 DL 01/22/23 13:45 WC - Today's Visit Information Type of service Follow-up Visit (Physician/CARPET YARN WINDER OPERATOR ) Arrival Mode Ambulatory Transfer Assistance None Patient Identification Verified (Name & Yes ) Patient Requires Transmission-Based No Precautions Vital Signs Temperature (97.8 F-99.1 F) 97 F L Temperature Source Temporal Pulse Rate (60-100) 112 H Pulse Location Monitor Respiratory Rate (12-18) 67 H Respiratory rate source Observation Blood Pressure (90/60-120/80) 129/69 H Blood Pressure Mean (mm Hg) 89 History Since Last Visit- (Skip if this is Patient's initial visit) Have you changed medications since your No last visit? Any new allergies or adverse reactions No Had a fall/change in ADL's that may No increase risk of falls Signs or symptoms of abuse and/or No neglect since last visit Have you been in the hospital since your No last visit? Has dressing in place as prescribed Yes Has compression in place as prescribed N/A Has offloadiing in place as prescribed Yes Experienced any changes in pain level or No management Pain Scale: 0-10 Numeric Is Patient Pain Free? Yes - Nurse 1 - General Ulcer Measurement Start: 01/22/23 13:42 Freq: Status: Active Protocol: Activity Type Activity Date Activity User E-sign Co-sign Detail Recorded Client Recorded Date Recorded By Document 01/22/23 13:45 DL [id number] 01/22/23 13:48 DL 01/22/23 13:45 Wound Center Nurse 1 #9 Right Inferior Hallux -Current Size (cm) - Length 0.3 -Current Size (cm) - Width 0.3 -Current Size (cm) - Depth 0.3 -Total Square Cm 0.09 -Photo Taken Yes -Maximum Distance #2 (cm) 0.3 -Circular Undermining Yes -Exudate Amt Medium -Exudate Type Serosanguineous -Wound Margin Distinct, Outline Attached -Granulation Amt None Present (0 %) -Necrosis Amt Small (1-33%) -Necrotic Tissue Type Adherent Slough -Structure Exposed N/A -Texture (Anna-wound Skin Appearance) Scarring -Moisture (Anna-wound Skin Appearance) Maceration -Color (Anna-wound Skin Appearance) No Abnormality -Temperature (Anna-wound Skin No Abnormality Appearance) (Pt Warm) -Tenderness on Palpation (Anna-wound No Skin Appearance) -Ulcer Cleansing Rinsed/ Irrigated with Saline -Foul Odor after Cleansing No -Anesthetic Used 5% Lidocaine Gel URBAN - Nurse 2 - General Ulcer CM Notes Start: 01/22/23 13:42 Freq: Status: Active Protocol: Activity Type Activity Date Activity User E-sign Co-sign Detail Recorded Client Recorded Date Recorded By Document 01/22/23 14:22 DORA [id number] 01/22/23 14:23 DORA 01/22/23 14:22 Wound Center Nurse 2 -Time 14:22 -Correct Patient Yes -Correct Side, Site, Position Yes -Correct Procedure Yes -Procedure Performed Yes -Type of Procedure Debridement -Clinical Debridement Subcutaneous -Tissue Removed Subcutaneous -Post Debridement (cm) - Length 0.5 -Post Debridement (cm) - Width 0.5 -Post Debridement (cm) - Depth 0.2 -Total Square (Post) (cm) 0.25 -Area of Debridement (cm) - Length 0.5 -Area of Debridement (cm) - Width 0.5 -Total Square (Area) (cm) 0.25 -Tunneling No -Undermining/Tunneling No -Circular Undermining No -Wound/Ulcer Outcome Not Healed -Ulcer Cleansing Rinsed/ Irrigated with Saline -Foul Odor after Cleansing No -Bioengineered Tissue No -Bleeding Controlled with Pressure -Treatment Response Procedure Tolerated Well -Offloading Yes -Type of Offloading Surgical Shoe -Debridement - Subq, 1st 20sq cm Yes Pain Scale: 0-10 Numeric Is Patient Pain Free? Yes URABN - Nurse 3 - General Ulcer D/C NN Start: 01/22/23 13:42 Freq: Status: Active Protocol: Activity Type Activity Date Activity User E-sign Co-sign Detail Recorded Client Recorded Date Recorded By Document 01/22/23 14:30 DL [id number] 01/22/23 14:31 DL 01/22/23 14:30 Wound Care Center Nurse 3 #9 Right Inferior Hallux -Ulcer Cleansing Rinsed/ Irrigated with Saline -Foul Odor after Cleansing No -Other Dressing bactroban -Primary Dressing Covered/Secured with Dry Gauze, Secured with Tape Treatment Response Procedure Tolerated Well Pain Scale: 0-10 Numeric Is Patient Pain Free? Yes WC - Visit Discharge Discharge Condition Stable Ambulatory Status Ambulatory,Cane Transportation Private Auto Facility Type Home Health Orders Sent Yes Assessment/Plan Assessment/Plan (1) Type 2 diabetes mellitus with diabetic polyneuropathy: CODE(S): E11.42 - Type 2 diabetes mellitus with diabetic polyneuropathy (2) Non-pressure chronic ulcer of other part of right foot with fat layer exposed: CODE(S): L97.512 - Non-pressure chronic ulcer of other part of right foot with fat layer exposed (3) History of malignant neoplasm of lung in adulthood: CODE(S): Z85.118 - Personal history of other malignant neoplasm of bronchus and lung PLAN: Plan Patient was evaluated at the wound healing center today.? Wound care - Ten applications of Epifix completed. Bactroban ointment covered with gauze to the medial foot ulcer daily after washing with soap and water. Apply Aquaphor or Vasoline to the dorsal aspect of foot to moisturize the dry, flaky, excoriated skin. Compression - Single tubigrip Off-loading - Suman shoe has been re-adjusted at the foot and ankle clinic. Alsoplacing the double stacked AMD foam to help prevent pressure on his foot and wrapped with cling. Discussed placing a TCC on him but he is not steady on his feet normally, therefore a TCC would be hazardous for him. Stressed the importance of off loading and not putting pressure on this portion of his foot. Vascular:? 12/19/21 - Right EULALIA - 1.15, Left EULALIA 1.06.? Right digital 0.74, Left digital 0.71, bilateral triphasic. Venous studies showed bilateral no DVT, Bilateral calf with primary veins with reflux, bilateral SPJ reflux. A wound culture was obtained on 01/08/23 which was positive for Staphylococcus pseudintermediu. He was started on Augmentin. Wound culture obtained on 07/18/22 positive for Staphylococcus pseudintermediu, he completed Augmentin. Wound culture obtained on 05/18/22 which was positive for Staphylococcus pseudintermediu, Staphylococcus saprophyticus and Anaerobic cocci.? Continue Augmentin. Encouraged high protein diet that is low in carbohydrates and sodium. Follow up two weeks. Call or come in sooner if develop any questions or concerns. 01/22/23 1547 <Electronically signed by Bonny Glynn NP SENIOR BOILER OPERATOR-C> Cosigner Signature (if applicable): CC: ~ Signed [facility] Work Phone: 1(866) 524-114805-22-2023 Progress note Author Bonny Glynn [facility] January 08, 2023 2:17pm Note Date/Time January 08, 2023 2:10p m [facility] [address] [place] [id number] Progress Note - Wound Care 01/08/23 1407 MR#: [id number] Acct: [id number] Name: PEDRO HILLMAN Rep #:[id number] : 1945 77 From: Bonny garcia NP SENIOR BOILER OPERATOR-C PCP: Dr. Tonio Fajardo, DO Status:REG RCR Location: History of Present Illness Date of Service: 01/08/23 Chief Complaint: right medial foot ulcer History of Wound: This 77-year-old male returns to the wound healing clinic for reoccurrence of a right medial foot ulcer. Wound care has been Moistened Cass covered with Rippey SAP dressing. Patient diabetic neuropathic. 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 Patient offloading right foot with surgical shoe. Wound culture from 07/18/22 positive for Staphylococcus pseudintermediu, he completed Augmentin. Wound care - He completed 10 applications of Epifix. Moistened Cass covered with adaptic and topped with gauze. Patient denies constitutional's or pains at this time. No other complaints. Progress of Wound: Right hallux ulcer is stable this week. He had more callus surrounding the ulcer. He states that he is wearing slipper socks at home so the only pressure is when he walks. He wears a Darco shoe when he leaves his home. He is too unsteady on his feet to wear a total contact cast to completely off load him. Continue the double stacked AMD foam.Will obtain a culture of the ulcer since hehas a plateau in the healing process of the ulcer. Objective Data Objective Data Vital Signs: Vital Signs Temp Pulse Resp BP 96.7 F L 111 H 18 121/46 H 01/08/23 13:37 01/08/23 13:37 12/25/22 14:53 01/08/23 13:37 Charges/Coding Procedures Integumentary 111xxx-113xx: 12132 Mihaela subq tissue 20 sq cm/< Debridement Note Debridement Note Wound debrided: medial foot ulcer Laterality: Right Wound Grade/Stage: Stage III Type of Debridement: Excisional debridement Anesthesia Used: 5% Lidocaine Gel Depth: Down to and including healthy tissue and in the subcutaneous layer Percentage of wound debrided: 100 Instrument Used: 3mm curette Tissue Removed: Devitalized tissue and slough Severity: Fat Layer Exposed Amount of bleeding with debridement: Mild Bleeding Controlled with: Compression and gauze Patient tolerated procedure: Patient tolerated procedure well Post-Debridement Measurements and Additional Note: Post-Debridement Measurements/Treatment - Nurse 1 - General Ulcer Assessment Start: 12/18/22 13:18 Freq: Status: Active Protocol: HEMA Activity Type Activity Date Activity User E-sign Co-sign Detail Recorded Client Recorded Date Recorded By Document 12/18/22 13:20 PL [id number] 12/18/22 13:27 PL Document 12/25/22 14:53 [id number] 12/25/22 14:54 Document 01/08/23 13:37 PR [id number] 01/08/23 13:39 AK 12/18/22 12/25/22 01/08/23 13:20 14:53 13:37 - Today's Visit Information Type of service Follow-up Visit Follow-up Visit Follow-up Visit (Physician/CARPET YARN WINDER OPERATOR (Physician/CARPET YARN WINDER OPERATOR (Physician/CARPET YARN WINDER OPERATOR ) ) ) Arrival Mode Ambulatory Ambulatory Ambulatory Transfer Assistance None Accompanied by DIL Patient Identification Verified (Name & Yes Yes Yes ) Patient Requires Transmission-Based No No No Precautions Safety Precautions NA NA Finger Stick Blood Sugar(mg/dl) (if 147 indicated): Blood Sugar Stated by Patient Vital Signs Temperature (97.8 F-99.1 F) 97.2 F L 97.7 F L 96.7 F L Temperature Source Temporal Temporal Temporal Pulse Rate (60-100) 107 H 110 H 111 H Pulse Location Monitor Respiratory Rate (12-18) 20 H 18 Respiratory rate source Observation Blood Pressure (90/60-120/80) 144/68 H 101/51 L 121/46 H Blood Pressure Mean (mm Hg) 93 67 71 Source Monitor Position Semi-Fowlers Blood Pressure Location Left Arm History Since Last Visit- (Skip if this is Patient's initial visit) Have you changed medications since your No No No last visit? Any new allergies or adverse reactions No No No Had a fall/change in ADL's that may No No No increase risk of falls Signs or symptoms of abuse and/or No No No neglect since last visit Have you been in the hospital since your No No No last visit? Has dressing in place as prescribed Yes Yes Yes Has compression in place as prescribed N/A N/A N/A Has offloadiing in place as prescribed Yes Yes N/A Experienced any changes in pain level or No No No management Left Footwear Regular Shoe Regular Shoe Right Footwear Surgical Shoe Regular Shoe with pressure relief insole Pain Scale: 0-10 Numeric Is Patient Pain Free? Yes Yes Yes WC - Nurse 1 - General Ulcer Measurement Start: 12/18/22 13:18 Freq: Status: Active Protocol: Activity Type Activity Date Activity User E-sign Co-sign Detail Recorded Client Recorded Date Recorded By Document 12/18/22 13:20 PL [id number] 12/18/22 13:27 PL Document 12/25/22 14:53 [id number] 12/25/22 14:54 Document 01/08/23 13:37 PR [id number] 01/08/23 13:39 AK 12/18/22 12/25/22 01/08/23 13:20 14:53 13:37 Wound Center Nurse 1 #9 Right Inferior Hallux -Combined with other wound No No No -Current Size (cm) - Length 0.1 0.1 0.2 -Current Size (cm) - Width 0.1 0.1 0.2 -Current Size (cm) - Depth 0.1 0.1 0.5 -Total Square Cm 0.01 0.01 0.04 -Photo Taken No Yes Yes -Epithelialization Medium 34-66% Medium 34-66% -Tunneling No No No -Undermining/Tunneling No No No -Circular Undermining No No No -Change in Wound Grade/Stage No -Exudate Amt Small None Present Medium -Exudate Type Serosanguineous Serosanguineous -Wound Margin Indistinct, Non Distinct, -Visible Outline Attached -Granulation Amt Medium (34-66%) Small (1-33%) Medium (34-66%) -Granulation Quality [place] Patent Pale -Slough/Fibrin No Yes Yes -Necrosis Amt Medium (34-66%) Large (67-100%) Medium (34-66%) -Necrotic Tissue Type Adherent Slough Adherent Slough Adherent Slough -Structure Exposed N/A N/A -Texture (Anna-wound Skin Appearance) Assessed No Abnormality, Assessed -Moisture (Anna-wound Skin Appearance) Assessed,Dry/ No Abnormality, Scaly Assessed -Color (Anna-wound Skin Appearance) Assessed Assessed, Hemosiderin Staining -Temperature (Anna-wound Skin No Abnormality No Abnormality No Abnormality Appearance) (Pt Warm) (Pt Warm) (Pt Warm) -Tenderness on Palpation (Anna-wound No No Skin Appearance) -Ulcer Cleansing Rinsed/ Wound Cleanser Rinsed/ Irrigated with Irrigated with Saline Saline -Foul Odor after Cleansing No No -Anesthetic Used 5% Lidocaine 5% Lidocaine Gel Gel Lower Limb Edema Present NA WC - Nurse 2 - General Ulcer CM Notes Start: 12/18/22 13:18 Freq: Status: Active Protocol: Activity Type Activity Date Activity User E-sign Co-sign Detail Recorded Client Recorded Date Recorded By Document 12/18/22 13:51 [id number] 12/18/22 13:53 Document 12/25/22 15:00 [id number] 12/25/22 15:10 Document 01/08/23 14:01 [id number] 01/08/23 14:02 12/18/22 12/25/22 01/08/23 13:51 15:00 14:01 Wound Center Nurse 2 #9 Right Inferior Hallux -Time 13:53 15:01 14:02 -Correct Patient Yes Yes Yes -Correct Side, Site, Position Yes Yes Yes -Correct Procedure Yes Yes Yes -Procedure Performed Yes Yes Yes -Type of Procedure Debridement Debridement Debridement -Clinical Debridement Subcutaneous Subcutaneous Subcutaneous -Tissue Removed Subcutaneous Subcutaneous Subcutaneous -Post Debridement (cm) - Length 0.4 0.5 0.5 -Post Debridement (cm) - Width 0.4 0.5 0.5 -Post Debridement (cm) - Depth 0.2 0.2 0.2 -Total Square (Post) (cm) 0.16 0.25 0.25 -Area of Debridement (cm) - Length 0.4 0.5 0.5 -Area of Debridement (cm) - Width 0.4 0.5 0.5 -Total Square (Area) (cm) 0.16 0.25 0.25 -Tunneling No No No -Undermining/Tunneling No No No -Circular Undermining No No No -Wound/Ulcer Outcome Not Healed Not Healed Not Healed -Ulcer Cleansing Rinsed/ Rinsed/ Rinsed/ Irrigated with Irrigated with Irrigated with Saline Saline Saline -Foul Odor after Cleansing No No No -Bioengineered Tissue No No No -Bleeding Controlled with Pressure Pressure Pressure -Treatment Response Procedure Procedure Procedure Tolerated Well Tolerated Well Tolerated Well -Offloading Yes Yes Yes -Type of Offloading Surgical Shoe Surgical Shoe Surgical Shoe -Debridement - Subq, 1st 20sq cm Yes Yes Yes Pain Scale: 0-10 Numeric Is Patient Pain Free? Yes Yes Yes WC - Nurse 3 - General Ulcer D/C NN Start: 12/18/22 13:18 Freq: Status: Active Protocol: Activity Type Activity Date Activity User E-sign Co-sign Detail Recorded Client Recorded Date Recorded By Document 12/18/22 14:07 PL [id number] 12/18/22 14:07 PL Document 12/25/22 15:20 DL [id number] 12/25/22 15:20 DL 12/18/22 12/25/22 14:07 15:20 Wound Care Center Nurse 3 #9 Right Inferior Hallux -Ulcer Cleansing Rinsed/ Irrigated with Saline -Foul Odor after Cleansing No -Primary Dressing Applied Promogran Cass Matter -Primary Dressing Covered/Secured with Dry Gauze, Dry Gauze, Secured with Secured with Tape Tape -Promogran Cass Matter 1 Treatment Response Procedure Tolerated Well Pain Scale: 0-10 Numeric Is Patient Pain Free? Yes Yes WC - Visit Discharge Discharge Condition Stable Ambulatory Status Ambulatory,Cane Transportation Private Auto Assessment/Plan Assessment/Plan (1) Type 2 diabetes mellitus with diabetic polyneuropathy: CODE(S): E11.42 - Type 2 diabetes mellitus with diabetic polyneuropathy (2) Non-pressure chronic ulcer of other part of right foot with fat layer exposed: CODE(S): L97.512 - Non-pressure chronic ulcer of other part of right foot with fat layer exposed (3) History of malignant neoplasm of lung in adulthood: CODE(S): Z85.118 - Personal history of other malignant neoplasm of bronchus and lung PLAN: Plan Patient was evaluated at the wound healing center today.? Wound care - Ten applications of Epifix completed. Moistened Cass covered with adaptic and topped with gauze to the medial foot ulcer daily after washing with soap and water. Apply Aquaphor or Vasoline to the dorsal aspect of foot to moisturize the dry, flaky, excoriated skin. Compression - Single tubigrip Off-loading - Suman shoe has been re-adjusted at the foot and ankle clinic. Alsoplacing the double stacked AMD foam to help prevent pressure on his foot and wrapped with cling. Discussed placing a TCC on him but he is not steady on his feet normally, therefore a TCC would be hazardous for him. Stressed the importance of off loading and not putting pressure on this portion of his foot. Vascular:? 12/19/21 - Right EULALIA - 1.15, Left EULALIA 1.06.? Right digital 0.74, Left digital 0.71, bilateral triphasic. Venous studies showed bilateral no DVT, Bilateral calf with primary veins with reflux, bilateral SPJ reflux. A wound culture was obtained today, 01/08/23 since he has had a plateau in his healing. A positive culture will necessitate antibiotic therapy. Wound culture obtained on 07/18/22 positive for Staphylococcus pseudintermediu, he completed Augmentin. Wound culture obtained on 05/18/22 which was positive for Staphylococcus pseudintermediu, Staphylococcus saprophyticus and Anaerobic cocci.? Continue Augmentin. Encouraged high protein diet that is low in carbohydrates and sodium. Follow up two weeks. Call or come in sooner if develop any questions or concerns. 01/08/23 1417 <Electronically signed by Bonny Glynn NP SENIOR BOILER OPERATOR-C> Cosigner Signature (if applicable): CC: ~ Signed [facility] Work Phone: [phone]) 925-510505-14-[address] Ochoa [facility] December 31, 2022 12:58am Note Date/Time December 30, 2022 11:08 pm [facility] Medical Records Department [address] [place] [address] Emergency Department Summary 12/30/22 MR#: [id number] Acct: [id number] Name: PEDRO HILLMAN Rep #:[id number] : 1945 77 From: Chris Ochoa MD PCP: Dr. Tonio Fajardo, DO Status:REG ER Location: ED HPI History of Present Illness Chief Complaint: Fever Detail of Chief Complaint: Fever and chills today around 3 PM. Informant: patient and family Onset/Context/Timing Onset: Today Context: Gradual Onset Timing: Continuous Current Severity: Mild Maximum Severity: Mild Narrative Narrative: 77-year-old male extensive past medical history including CAD, CKD, hypertension, diabetes, UTIs and history of lung cancer. Today around 3 PM he started having chills and a fever as high as 104. Says he has a cough primarilywhite phlegm. No vomiting or diarrhea. No abdominal pain. No recent exposures. No recent hospitalizations. Denies any dysuria. Prior similar symptoms: Yes Recent Illness/Hospitalization: No PFSH PFSH Medical History Anemia Atherosclerosis of coronary artery of [place] heart without angina pectoris BPH (benign prostatic hyperplasia) Chronic kidney disease, stage 3 Coronary artery disease COVID Delayed wound healing Former smoker GERD (gastroesophageal reflux disease) Hyperlipidemia Hypertension Lower extremity edema Malnutrition Osteomyelitis of ankle, left, acute Peripheral vascular occlusive disease Type 2 diabetes mellitus with diabetic polyneuropathy Ulcer of left lower extremity with fat layer exposed Venous insufficiency Wears hearing aid in both ears Home Medications aspirin 81 mg tablet,delayed release (Adult Low Dose Aspirin) 81 mg PO QDAY 08/22/17 [History Last Taken Unknown] insulin glargine 100 unit/mL subcutaneous solution 40 unit SQ DAILY 11/19/19 [History Last Taken Unknown] multivitamin (Daily Multi-Vitamin tablet) 1 tab PO DAILY 06/28/20 [History Last Taken Unknown] sitagliptin phosphate 50 mg tablet (Januvia) 50 mg PO DAILY 11/02/21 [History Last Taken Unknown] pravastatin 20 mg tablet 20 mg PO DAILY 01/17/22 [History Last Taken Unknown] clopidogrel 75 mg tablet (Plavix) 75 mg PO DAILY #90 tabs 10/09/22 [Rx Last Taken Unknown] lisinopril 2.5 mg tablet See Rx Instructions .Route .COMPLEX #90 TABLETS 10/20/22 [Rx Last Taken Unknown] Allergy/AdvReac Type Severity Reaction Status Date / Time ibuprofen Allergy Severe Facial Verified 12/12/22 14:04 swelling (angioedema) Family History Brother Diabetes Father , Age 72 stomach ulcers No problems noted. Mother , Age 71 pancreatitis No problems noted. Sister , hepatitis C No problems noted. Surgical History H/O aorto-femoral bypass (~2009) History of transurethral resection of prostate Presence of aortocoronary bypass graft (~03/2013) Social History Smoking Status: Former smoker Tobacco: How many years used: 30 how long ago did patient quit smokin years ROS ROS ED ROS Narrative Fever. Chills. Cough. Review of Systems ROS Unobtainable: Denies due to encephalopathy Constitutional Constitutional ED: Reports chills and fever(s) Eyes Eyes: Denies blurry vision ENT ENT ED: Denies ear pain Cardiovascular Cardiovascular: Denies chest pain Respiratory/Chest Respiratory/Chest: Reports cough; Denies dyspnea Gastrointestinal Gastrointestinal: Denies abdominal pain, constipation, diarrhea, melena, nausea or vomiting Genitourinary Genitourinary ED: Denies dysuria or hematuria Musculoskeletal Musculoskeletal: Denies arthralgias Integumentary Denies abscess Neurologic Neurologic: Denies headache(s) Psychiatric Psychiatric: Denies anxiety Endocrine Endocrinology: Denies cold intolerance Hematologic/Lymphatic Hematologic/Lymphatic: Reports none Allergic/Immunologic Allergic/Immunologic ED: Denies mouth swelling or tongue swelling EXAM Physical Exam Narrative Exam Narrative: male vital signs are stable he does have a low-grade temperature 100.6. He does not look septic or toxic. He is not dehydrated. Family member presentin the room. Patient is sitting upright in bed. H EENT exam unremarkable. Moist mucous membranes. Neck nontender no JVD. No lymphadenopathy. Lungs clear to auscultation. Dry cough. Heart tachycardic rate of 105 no murmur. Chest wall nontender. Prior sternotomy. Abdomen soft, nontender, nondistended normal bowel sounds no peritoneal signs. Moving all 4 extremities. Nontender. No edema. No cellulitis. Normal acidizer water well strength. Normal dorsi plantarflexion. Neurologically is awake and alert. Answering questions and following commands. Const Vital Signs: 12/30/22 22:36 12/30/22 22:43 12/30/22 23:18 Temperature 100.6 F H Temperature Source Oral Pulse Rate 107 H Respiratory Rate 23 H Respiratory Effort Normal Non-Labored Blood Pressure 145/57 H Blood Pressure Mean 86 Pulse Ox 93 Oxygen Delivery Method Room Air Room Air 12/30/22 22:55 12/31/22 00:21 Temperature 99.4 F H 99.6 F H Temperature Source Oral Oral Pulse Rate 106 H 110 H Respiratory Rate 16 21 H Respiratory Effort Blood Pressure 146/54 H 120/56 L Blood Pressure Mean 84 77 Pulse Ox 96 92 Oxygen Delivery Method Room Air Room Air Positive well nourished and well developed; Negative for cachectic, contracturesor unkempt General Appearance ED: well developed and NAD; Negative for unkempt, cachectic, contractures, cyanotic or pallor Nutritional Appearance: Negative for cachectic HEENT Reports moist mucous membranes; Denies dry mucous membranes Negative for trauma or tenderness Mouth ED: No dry mucous membranes Mouth: No dry mucous membranes Eyes PERRL and EOMs intact bilaterally General Eye ED: Negative for pale conjunctiva or scleral icterus Neck no lymphadenopathy, supple and no JVD General: Negative for tenderness Lymph Lymphatic: Negative for other Chest Wall inspection of chest normal and palpation of chest normal Chest: Negative for other Resp normal respiratory effort and clear to auscultation bilaterally Resp Narrative: Dry cough. Effort and Inspection: Negative for retractions Auscultation: Negative for rales, rhonchi or wheezes Cardio regular rhythm, S1 normal heart sound, S2 normal heart sound and no murmurs; Negative for regular rate Rate: tachycardic Rhythm: Negative for abnormal rhythm GI normal to inspection, nondistended, normoactive bowel sounds, non-tender, non-distended and no masses Inspection: Negative for abdominal distention Auscultation: normoactive bowel sounds Palpation: soft; Negative for tender or guarding Bladder / Kidney Exam: No other Back/Spine no CVA tenderness General Back: Negative for CVA tenderness Cervical Spine: Negative for cervical spine tenderness Thoracic Spine / Upper Back: Negative for thoracic spinal tenderness Lumbar Spine / Lower Back: Negative for lumbar spinal tenderness Extremity normal to inspection General Extremety ED: Negative for edema or tenderness General Extremity: Negative for edema Neuro oriented x3 and CN's II-XII intact bilaterally Sensorium / Orientation: alert; Negative for orientation impaired, lethargic or stuporous Psych mental status grossly normal Appearance: Negative for unkempt Attitude: No agitated Mood & Affect: Negative for depressed, anxious or tearful Skin no rashes or lesions noted, no wounds and skin turgor normal General Skin Exam: elasticity normal; Negative for jaundice or pallor Lesions: No lesion noted Rashes: No rashes noted Trauma: Negative for abrasion Wounds: Negative for wounds noted MDM MDM MDM Narrative Medical decision making narrative: 77-year-old male extensive past medical history with a fever today as high as 104 at home around 3 PM. Undergo a septic work-up. Exam was pretty benign. Differential would include pneumonia, UTI, bacteremia or sepsis versus other etiologies. Given Tylenol and some IV fluids. I reviewed his labs compared to prior labs and these are his baseline. Repeat exam is doing well 12:53 AM. He was given Tylenol for his fever. He has been given a half a liter normal saline. Patient wants to be discharged to home. I spoke to he and his son via phone on my repeat evaluation. They are both comfortable with that. Nurses will get him up walking recheck his vital signs if he is doing well we will let him be discharged to home. Tylenol and fluids for the influenza. Follow-up with his physician and return if worse. Nurses ambulated the patient and did well. He is afebrile. His vital signs arestable. He would like to be discharged home. History & Record Review Discussion w/independent historian: Patient Lab Data Attestation: I reviewed the patient's lab results. Lab results narrative: Influenza A positive. COVID-negative. CBC shows a white count 10.6. H&H 12.1 and 38. Platelets 210. PT/INR PTT are unremarkable. Electrolytes show sodium 134. Potassium of 5.2. Gap is 7. BUN and creatinine of 44 and 2 and is a history of chronic kidney disease. Glucose 119. Liver enzymes unremarkable. Lactic acid 1.4. Urinalysis is negative. No white or red cells. No bacteria or nitrites. Chest x-ray is chronic changes interpreted by myself. Labs: Laboratory Results - last 24 hr 12/30/22 12/30/22 12/30/22 22:50 22:50 22:50 WBC 10.6 RBC 4.36 L Hgb 12.1 L Hct 38.0 L MCV 87.2 MCH 27.8 MCHC 31.8 L RDW Std Deviation 50.5 H RDW Coeff of Reggie 15.9 H Plt Count 210 MPV 10.2 Immature Gran % (Auto) 0.500 Neut % (Auto) 83.3 H Lymph % (Auto) 6.4 L Hanson % (Auto) 9.1 Eos % (Auto) 0.2 Baso % (Auto) 0.5 Absolute Neuts (auto) 8.8 H Absolute Lymphs (auto) 0.68 L Nucleated RBC % 0 PT 15.8 H INR 1.3 APTT 38.9 H Sodium 134 L Potassium 5.2 H Chloride 102 Carbon Dioxide 25.0 Anion Gap 7 BUN 44 H Creatinine 2.00 H Estim Creat Clear Calc 27.91 Est GFR (MDRD) Af Amer 42 L Est GFR (MDRD) Non-Af 35 L BUN/Creatinine Ratio 22.0 H Glucose 119 H Lactic Acid Calcium 9.2 Total Bilirubin 0.50 AST 22 ALT 22 Alkaline Phosphatase 53 Total Protein 8.2 Albumin 3.5 Globulin 4.7 H Albumin/Globulin Ratio 0.7 L Urine Color Urine Clarity Urine pH Ur Specific Campbell Urine Protein Urine Glucose (UA) Urine Ketones Urine Occult Blood Urine Nitrite Urine Bilirubin Urine Urobilinogen Ur Leukocyte Esterase Urine RBC Urine WBC Ur Squamous Epith Cells Urine Bacteria Urine Mucus 12/30/22 12/30/22 22:50 23:59 WBC RBC Hgb Hct MCV MCH MCHC RDW Std Deviation RDW Coeff of Reggie Plt Count MPV Immature Gran % (Auto) Neut % (Auto) Lymph % (Auto) Hanson % (Auto) Eos % (Auto) Baso % (Auto) Absolute Neuts (auto) Absolute Lymphs (auto) Nucleated RBC % PT INR APTT Sodium Potassium Chloride Carbon Dioxide Anion Gap BUN Creatinine Estim Creat Clear Calc Est GFR (MDRD) Af Amer Est GFR (MDRD) Non-Af BUN/Creatinine Ratio Glucose Lactic Acid 1.4 Calcium Total Bilirubin AST ALT Alkaline Phosphatase Total Protein Albumin Globulin Albumin/Globulin Ratio Urine Color Yellow Urine Clarity Clear Urine pH 7.0 Ur Specific Campbell 1.005 Urine Protein 100 H Urine Glucose (UA) Normal Urine Ketones Negative Urine Occult Blood 25 H Urine Nitrite Negative Urine Bilirubin Negative Urine Urobilinogen Normal Ur Leukocyte Esterase 25 H Urine RBC 0 SEEN Urine WBC 0-5 SEEN Ur Squamous Epith Cells 0 SEEN Urine Bacteria 0 SEEN Urine Mucus 0 SEEN Radiography Chest X-Ray - ED: 1 View, Read by ED Physician, Read by Radiologist, Heart, Lungs, Mediastinum, Bony Structures, No Acute Disease and Chronic Changes Diagnostic Testing: Clinical Impression(s) from Imaging Studies Chest X-Ray 12/30/22 23:02 IMPRESSION: No radiographic evidence of acute cardiopulmonary disease. Electronically Signed: Kash Nevarez MD at 0:41 EDT Reading Location ID and State: [facility] / [place] Tel , Service support , Chest x-ray, portable, single view shows chronic changes no acute process. No infiltrates. Prior sternotomy. Interpreted both by myself and the radiologist and we agree. Discharge Plan Triage Chief Complaint: Fever ED Provider: Chris Ochoa Dx/Rx/DC Orders Clinical Impression: Fever, Influenza A, Generalized weakness, History of chronic kidney disease, History of diabetes mellitus Instructions: ED Influenza (Adult) Prescriptions: No Action aspirin [Adult Low Dose Aspirin] 81 mg tablet,delayed release (DR/EC) 81 mg PO QDAY multivitamin [Daily Multi-Vitamin] Tablet 1 tab PO DAILY pravastatin 20 mg tablet 20 mg PO DAILY insulin glargine 100 UNIT/ML solution 40 unit SQ DAILY Januvia 50 mg Tablet 50 mg PO DAILY clopidogrel [Plavix] 75 mg tablet 75 mg PO DAILY Qty: 90 3RF lisinopril 2.5 mg tablet See Rx Instructions .ROUTE .COMPLEX Qty: 90 3RF Dose Instruction: TAKE 1 TABLET DAILY Rx Instructions: TAKE 1 TABLET DAILY Primary Care Provider: Tonio Fajardo Referrals: Tonio Fajardo DO [Primary Care Provider] - 3-5 Days Activity Restrictions/Additional Instructions: Tylenol for fever. Plenty of fluids and rest today do not get dehydrated. Return if you are feeling a lot worse or too weak to get around her house. Follow-up with your doctor in the next several days to ensure you are improving. Disposition Disposition: Home, Self Care What to do if you have Problems For any increased pain, shortness of breath, bleeding, nausea or vomiting, chestpain, or any unexpected problems, contact your Primary Care Provider. Call [facility] ([phone]) or report to the closest Emergency Room. Call 911 if necessary. 12/31/22 0058 <Electronically signed by Chris Ochoa MD> Cosigner Signature (if applicable): CC: Dr. Tonio Fajardo DO ~ Signed [facility] Work Phone: [phone]) 459-384405-08-2023 Progress note Author Bonny Glynn [facility] December 25, 2022 3:36pm Note Date/Time December 25, 2022 3:36pm [facility] [address] [place] [id number] Progress Note - Wound Care 12/25/22 1531 MR#: [id number] Acct: [id number] Name: PEDRO HILLMAN Rep #:[id number] : 1945 77 From: Bonny garcia SENIOR BOILER OPERATOR SENIOR BOILER OPERATOR-C PCP: Dr. Tonio Fajardo DO Status:REG RCR Location: History of Present Illness Date of Service: 12/25/22 Chief Complaint: right medial foot ulcer History of Wound: This 77-year-old male returns to the wound healing clinic for reoccurrence of a right medial foot ulcer. Wound care has been Moistened Cass covered with Rippey SAP dressing. Patient diabetic neuropathic. 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 Patient offloading right foot with surgical shoe. Wound culture from 07/18/22 positive for Staphylococcus pseudintermediu, he completed Augmentin. Wound care - He completed 10 applications of Epifix. Moistened Cass covered with gauze. Patient denies constitutional's or pains at this time. No other complaints. Progress of Wound: Right hallux ulcer is stable this week. He had a little more callus surroundingthe ulcer. He is too unsteady on his feet to wear a total contact cast to completely off load him. Continue the double stacked AMD foam. Objective Data Objective Data Vital Signs: Vital Signs Temp Pulse Resp BP 97.7 F L 110 H 18 101/51 L 12/25/22 14:53 12/25/22 14:53 12/25/22 14:53 12/25/22 14:53 Charges/Coding Procedures Integumentary [id number]: 06575 Mihaela subq tissue 20 sq cm/< Debridement Note Debridement Note Wound debrided: medial foot ulcer Laterality: Right Wound Grade/Stage: Stage III Type of Debridement: Excisional debridement Anesthesia Used: 5% Lidocaine Gel Depth: Down to and including healthy tissue and in the subcutaneous layer Percentage of wound debrided: 100 Instrument Used: #15 blade and - (1 mm curette) Tissue Removed: Devitalized tissue and slough Severity: Fat Layer Exposed Amount of bleeding with debridement: Mild Bleeding Controlled with: Compression and gauze Patient tolerated procedure: Patient tolerated procedure well Debridement Free Text: Used a #15 blade to removed the extra callus surrounding the ulcer. Post-Debridement Measurements and Additional Note: Post-Debridement Measurements/Treatment - Nurse 1 - General Ulcer Assessment Start: 12/18/22 13:18 Freq: Status: Active Protocol: [email or web address] Activity Type Activity Date Activity User E-sign Co-sign Detail Recorded Client Recorded Date Recorded By Document 12/18/22 13:20 [id number] 12/18/22 13:27 Document 12/25/22 14:53 [id number] 12/25/22 14:54 12/18/22 12/25/22 13:20 14:53 - Today's Visit Information Type of service Follow-up Visit Follow-up Visit (Physician/CARPET YARN WINDER OPERATOR (Physician/CARPET YARN WINDER OPERATOR ) ) Arrival Mode Ambulatory Ambulatory Transfer Assistance None Accompanied by DIL Patient Identification Verified (Name & Yes Yes ) Patient Requires Transmission-Based No No Precautions Safety Precautions NA Finger Stick Blood Sugar(mg/dl) (if 147 indicated): Blood Sugar Stated by Patient Vital Signs Temperature (97.8 F-99.1 F) 97.2 F L 97.7 F L Temperature Source Temporal Temporal Pulse Rate (60-100) 107 H 110 H Pulse Location Monitor Respiratory Rate (12-18) 20 H 18 Respiratory rate source Observation Blood Pressure (90/60-120/80) 144/68 H 101/51 L Blood Pressure Mean (mm Hg) 93 67 Source Monitor Position Semi-Fowlers Blood Pressure Location Left Arm History Since Last Visit- (Skip if this is Patient's initial visit) Have you changed medications since your No No last visit? Any new allergies or adverse reactions No No Had a fall/change in ADL's that may No No increase risk of falls Signs or symptoms of abuse and/or No No neglect since last visit Have you been in the hospital since your No No last visit? Has dressing in place as prescribed Yes Yes Has compression in place as prescribed N/A N/A Has offloadiing in place as prescribed Yes Yes Experienced any changes in pain level or No No management Left Footwear Regular Shoe Right Footwear Surgical Shoe with pressure relief insole Pain Scale: 0-10 Numeric Is Patient Pain Free? Yes Yes - Nurse 1 - General Ulcer Measurement Start: 12/18/22 13:18 Freq: Status: Active Protocol: Activity Type Activity Date Activity User E-sign Co-sign Detail Recorded Client Recorded Date Recorded By Document 12/18/22 13:20 KIM [id number] 12/18/22 13:27 Document 12/25/22 14:53 [id number] 12/25/22 14:54 12/18/22 12/25/22 13:20 14:53 Wound Center Nurse 1 #9 Right Inferior Hallux -Combined with other wound No No -Current Size (cm) - Length 0.1 0.1 -Current Size (cm) - Width 0.1 0.1 -Current Size (cm) - Depth 0.1 0.1 -Total Square Cm 0.01 0.01 -Photo Taken No Yes -Epithelialization Medium 34-66% Medium 34-66% -Tunneling No No -Undermining/Tunneling No No -Circular Undermining No No -Exudate Amt Small None Present -Exudate Type Serosanguineous -Wound Margin Indistinct, Non -Visible -Granulation Amt Medium (34-66%) Small (1-33%) -Granulation Quality [place] Patent -Slough/Fibrin No Yes -Necrosis Amt Medium (34-66%) Large (67-100%) -Necrotic Tissue Type Adherent Slough Adherent Slough -Structure Exposed N/A -Texture (Anna-wound Skin Appearance) Assessed -Moisture (Anna-wound Skin Appearance) Assessed,Dry/ Scaly -Color (Anna-wound Skin Appearance) Assessed -Temperature (Anna-wound Skin No Abnormality No Abnormality Appearance) (Pt Warm) (Pt Warm) -Tenderness on Palpation (Anna-wound No Skin Appearance) -Ulcer Cleansing Rinsed/ Wound Cleanser Irrigated with Saline -Foul Odor after Cleansing No -Anesthetic Used 5% Lidocaine Gel Lower Limb Edema Present NA WC - Nurse 2 - General Ulcer CM Notes Start: 12/18/22 13:18 Freq: Status: Active Protocol: Activity Type Activity Date Activity User E-sign Co-sign Detail Recorded Client Recorded Date Recorded By Document 12/18/22 13:51 [id number] 12/18/22 13:53 Document 12/25/22 15:00 [id number] 12/25/22 15:10 12/18/22 12/25/22 13:51 15:00 Wound Center Nurse 2 #9 Right Inferior Hallux -Time 13:53 15:01 -Correct Patient Yes Yes -Correct Side, Site, Position Yes Yes -Correct Procedure Yes Yes -Procedure Performed Yes Yes -Type of Procedure Debridement Debridement -Clinical Debridement Subcutaneous Subcutaneous -Tissue Removed Subcutaneous Subcutaneous -Post Debridement (cm) - Length 0.4 0.5 -Post Debridement (cm) - Width 0.4 0.5 -Post Debridement (cm) - Depth 0.2 0.2 -Total Square (Post) (cm) 0.16 0.25 -Area of Debridement (cm) - Length 0.4 0.5 -Area of Debridement (cm) - Width 0.4 0.5 -Total Square (Area) (cm) 0.16 0.25 -Tunneling No No -Undermining/Tunneling No No -Circular Undermining No No -Wound/Ulcer Outcome Not Healed Not Healed -Ulcer Cleansing Rinsed/ Rinsed/ Irrigated with Irrigated with Saline Saline -Foul Odor after Cleansing No No -Bioengineered Tissue No No -Bleeding Controlled with Pressure Pressure -Treatment Response Procedure Procedure Tolerated Well Tolerated Well -Offloading Yes Yes -Type of Offloading Surgical Shoe Surgical Shoe -Debridement - Subq, 1st 20sq cm Yes Yes Pain Scale: 0-10 Numeric Is Patient Pain Free? Yes Yes - Nurse 3 - General Ulcer D/C NN Start: 12/18/22 13:18 Freq: Status: Active Protocol: Activity Type Activity Date Activity User E-sign Co-sign Detail Recorded Client Recorded Date Recorded By Document 12/18/22 14:07 PL [id number] 12/18/22 14:07 PL Document 12/25/22 15:20 DL [id number] 12/25/22 15:20 DL 12/18/22 12/25/22 14:07 15:20 Wound Care Center Nurse 3 #9 Right Inferior Hallux -Ulcer Cleansing Rinsed/ Irrigated with Saline -Foul Odor after Cleansing No -Primary Dressing Applied Promogran Cass Matter -Primary Dressing Covered/Secured with Dry Gauze, Dry Gauze, Secured with Secured with Tape Tape -Promogran Cass Matter 1 Treatment Response Procedure Tolerated Well Pain Scale: 0-10 Numeric Is Patient Pain Free? Yes Yes - Visit Discharge Discharge Condition Stable Ambulatory Status Ambulatory,Cane Transportation Private Auto Assessment/Plan Assessment/Plan (1) Type 2 diabetes mellitus with diabetic polyneuropathy: CODE(S): E11.42 - Type 2 diabetes mellitus with diabetic polyneuropathy (2) Non-pressure chronic ulcer of other part of right foot with fat layer exposed: CODE(S): L97.512 - Non-pressure chronic ulcer of other part of right foot with fat layer exposed (3) History of malignant neoplasm of lung in adulthood: CODE(S): Z85.118 - Personal history of other malignant neoplasm of bronchus and lung PLAN: Plan Patient was evaluated at the wound healing center today.? Wound care - Ten applications of Epifix completed. Moistened Cass covered with gauze to the medial foot ulcer daily after washing with soap and water. Apply Aquaphor or Vasoline to the dorsal aspect of foot to moisturize the dry, flaky, excoriated skin. Compression - Single tubigrip Off-loading - Suman shoe has been re-adjusted at the foot and ankle clinic. Alsoplacing the double stacked AMD foam to help prevent pressure on his foot and wrapped with cling. Discussed placing a TCC on him but he is not steady on his feet normally, therefore a TCC would be hazardous for him. Stressed the importance of off loading and not putting pressure on this portion of his foot. Vascular:? 12/19/21 - Right EULALIA - 1.15, Left EULALIA 1.06.? Right digital 0.74, Left digital 0.71, bilateral triphasic. Venous studies showed bilateral no DVT, Bilateral calf with primary veins with reflux, bilateral SPJ reflux. Wound culture obtained on 07/18/22 positive for Staphylococcus pseudintermediu, he completed Augmentin. Wound culture obtained on 05/18/22 which was positive for Staphylococcus pseudintermediu, Staphylococcus saprophyticus and Anaerobic cocci.? Continue Augmentin. Encouraged high protein diet that is low in carbohydrates and sodium. Follow up two weeks. Call or come in sooner if develop any questions or concerns. 12/25/22 1536 <Electronically signed by Bonny Glynn NP SENIOR BOILER OPERATOR-C> Cosigner Signature (if applicable): CC: ~ Signed [facility] Work Phone: [phone]) 492-917605-01-2023 Progress note Author Bonny Renard [facility] December 18, 2022 2:23pm Note Date/Time December 18, 2022 2:23pm [facility] [address] [place] [id number] Progress Note - Wound Care 12/18/22 1419 MR#: [id number] Acct: [id number] Name: PEDRO HILLMAN Rep #:[id number] : 1945 77 From: Bonny Gillis SENIOR BOILER OPERATOR SENIOR BOILER OPERATOR-C PCP: Dr. oTnio Fajardo, DO Status:REG RCR Location: History of Present Illness Date of Service: 12/18/22 Chief Complaint: right medial foot ulcer History of Wound: This 77-year-old male returns to the wound healing clinic for reoccurrence of a right medial foot ulcer. Wound care has been Moistened Cass covered with Rippey SAP dressing. Patient diabetic neuropathic. 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 Patient offloading right foot with surgical shoe. Wound culture from 07/18/22 positive for Staphylococcus pseudintermediu, he completed Augmentin. Wound care - He completed 10 applications of Epifix. Collagen hydrogel covered with gauze. Aquaphor to dorsal foot excoriated area. Patient denies constitutional's or pains at this time. No other complaints. Progress of Wound: Right hallux ulcer is stable this week with the Epifix and placing AMD Foam, doubled stack to help prevent pressure on the ulcer. His excoriation on the dorsal aspect of his foot has improved this week. Objective Data Objective Data Vital Signs: Vital Signs Temp Pulse Resp BP 97.2 F L 107 H 20 H 144/68 H 12/18/22 13:20 12/18/22 13:20 12/18/22 13:20 12/18/22 13:20 Charges/Coding Procedures Integumentary 111xxx-113xx: 28020 Mihaela subq tissue 20 sq cm/< Debridement Note Debridement Note Wound debrided: medial foot ulcer Laterality: Right Wound Grade/Stage: Stage III Type of Debridement: Excisional debridement Anesthesia Used: 5% Lidocaine Gel Depth: Down to and including healthy tissue and in the subcutaneous layer Percentage of wound debrided: 100 Instrument Used: 3mm curette and - (1 mm curette) Tissue Removed: Devitalized tissue and slough Severity: Fat Layer Exposed Amount of bleeding with debridement: Mild Bleeding Controlled with: Compression and gauze Patient tolerated procedure: Patient tolerated procedure well Debridement Free Text: Used a 3 mm curette and then a 1 mm curette to help get non viable tissue over the ulcer. Post-Debridement Measurements and Additional Note: Post-Debridement Measurements/Treatment - Nurse 1 - General Ulcer Assessment Start: 12/18/22 13:18 Freq: Status: Active Protocol: HEMA Activity Type Activity Date Activity User E-sign Co-sign Detail Recorded Client Recorded Date Recorded By Document 12/18/22 13:20 PL [id number] 12/18/22 13:27 PL 12/18/22 13:20 - Today's Visit Information Type of service Follow-up Visit (Physician/CARPET YARN WINDER OPERATOR ) Arrival Mode Ambulatory Transfer Assistance None Patient Identification Verified (Name & Yes ) Patient Requires Transmission-Based No Precautions Safety Precautions NA Finger Stick Blood Sugar(mg/dl) (if 147 indicated): Blood Sugar Stated by Patient Vital Signs Temperature (97.8 F-99.1 F) 97.2 F L Temperature Source Temporal Pulse Rate (60-100) 107 H Respiratory Rate (12-18) 20 H Blood Pressure (90/60-120/80) 144/68 H Blood Pressure Mean (mm Hg) 93 History Since Last Visit- (Skip if this is Patient's initial visit) Have you changed medications since your No last visit? Any new allergies or adverse reactions No Had a fall/change in ADL's that may No increase risk of falls Signs or symptoms of abuse and/or No neglect since last visit Have you been in the hospital since your No last visit? Has dressing in place as prescribed Yes Has compression in place as prescribed N/A Has offloadiing in place as prescribed Yes Experienced any changes in pain level or No management Pain Scale: 0-10 Numeric Is Patient Pain Free? Yes URBAN - Nurse 1 - General Ulcer Measurement Start: 12/18/22 13:18 Freq: Status: Active Protocol: Activity Type Activity Date Activity User E-sign Co-sign Detail Recorded Client Recorded Date Recorded By Document 12/18/22 13:20 KIM [id number] 12/18/22 13:27 KIM 12/18/22 13:20 Wound Center Nurse 1 #9 Right Inferior Hallux -Combined with other wound No -Current Size (cm) - Length 0.1 -Current Size (cm) - Width 0.1 -Current Size (cm) - Depth 0.1 -Total Square Cm 0.01 -Photo Taken No -Epithelialization Medium 34-66% -Tunneling No -Undermining/Tunneling No -Circular Undermining No -Exudate Amt Small -Exudate Type Serosanguineous -Granulation Amt Medium (34-66%) -Granulation Quality [place] Patent -Slough/Fibrin No -Necrosis Amt Medium (34-66%) -Necrotic Tissue Type Adherent Slough -Temperature (Anna-wound Skin No Abnormality Appearance) (Pt Warm) -Ulcer Cleansing Rinsed/ Irrigated with Saline -Foul Odor after Cleansing No -Anesthetic Used 5% Lidocaine Gel URBAN - Nurse 2 - General Ulcer CM Notes Start: 12/18/22 13:18 Freq: Status: Active Protocol: Activity Type Activity Date Activity User E-sign Co-sign Detail Recorded Client Recorded Date Recorded By Document 12/18/22 13:51 DORA [id number] 12/18/22 13:53 DORA 12/18/22 13:51 Wound Center Nurse 2 -Time 13:53 -Correct Patient Yes -Correct Side, Site, Position Yes -Correct Procedure Yes -Procedure Performed Yes -Type of Procedure Debridement -Clinical Debridement Subcutaneous -Tissue Removed Subcutaneous -Post Debridement (cm) - Length 0.4 -Post Debridement (cm) - Width 0.4 -Post Debridement (cm) - Depth 0.2 -Total Square (Post) (cm) 0.16 -Area of Debridement (cm) - Length 0.4 -Area of Debridement (cm) - Width 0.4 -Total Square (Area) (cm) 0.16 -Tunneling No -Undermining/Tunneling No -Circular Undermining No -Wound/Ulcer Outcome Not Healed -Ulcer Cleansing Rinsed/ Irrigated with Saline -Foul Odor after Cleansing No -Bioengineered Tissue No -Bleeding Controlled with Pressure -Treatment Response Procedure Tolerated Well -Offloading Yes -Type of Offloading Surgical Shoe -Debridement - Subq, 1st 20sq cm Yes Pain Scale: 0-10 Numeric Is Patient Pain Free? Yes - Nurse 3 - General Ulcer D/C NN Start: 12/18/22 13:18 Freq: Status: Active Protocol: Activity Type Activity Date Activity User E-sign Co-sign Detail Recorded Client Recorded Date Recorded By Document 12/18/22 14:07 KIM [id number] 12/18/22 14:07 KIM 12/18/22 14:07 Wound Care Center Nurse 3 #9 Right Inferior Hallux -Primary Dressing Covered/Secured with Dry Gauze, Secured with Tape Pain Scale: 0-10 Numeric Is Patient Pain Free? Yes Assessment/Plan Assessment/Plan (1) Type 2 diabetes mellitus with diabetic polyneuropathy: CODE(S): E11.42 - Type 2 diabetes mellitus with diabetic polyneuropathy (2) Non-pressure chronic ulcer of other part of right foot with fat layer exposed: CODE(S): L97.512 - Non-pressure chronic ulcer of other part of right foot with fat layer exposed (3) History of malignant neoplasm of lung in adulthood: CODE(S): Z85.118 - Personal history of other malignant neoplasm of bronchus and lung PLAN: Plan Patient was evaluated at the wound healing center today.? Wound care - Ten applications of Epifix completed. Collagen hydrogel covered with gauze to the medial foot ulcer daily after washing with soap and water. Apply Aquaphor or Vasoline to the dorsal aspect of foot to moisturize the dry, flaky, excoriated skin. Compression - Single tubigrip Off-loading - Suman shoe has been re-adjusted at the foot and ankle clinic. Alsoplacing the double stacked AMD foam to help prevent pressure on his foot and wrapped with cling. Stressed the importance of off loading and not putting pressure on this portion of his foot. Vascular:? 12/19/21 - Right EULALIA - 1.15, Left EULALIA 1.06.? Right digital 0.74, Left digital 0.71, bilateral triphasic. Venous studies showed bilateral no DVT, Bilateral calf with primary veins with reflux, bilateral SPJ reflux. Wound culture obtained on 07/18/22 positive for Staphylococcus pseudintermediu, he completed Augmentin. Wound culture obtained on 05/18/22 which was positive for Staphylococcus pseudintermediu, Staphylococcus saprophyticus and Anaerobic cocci.? Continue Augmentin. Encouraged high protein diet that is low in carbohydrates and sodium. Follow up one week. Call or come in sooner if develop any questions or concerns. 12/18/22 1423 <Electronically signed by Bonny Glynn NP SENIOR BOILER OPERATOR-C> Cosigner Signature (if applicable): CC: ~ Signed [facility] Work Phone: 1(144) 305-974904-27-2023 Progress note Author Bonnyparris Glynn [facility] December 14, 2022 2:56pm Note Date/Time December 11, 2022 3:2 7pm [facility] [address] [place] [id number] Progress Note - Wound Care 12/11/22 1527 MR#: [id number] Acct: [id number] Name: PEDRO HILLMAN Rep #:[id number] : 1945 77 From: Bonny garcia NP SENIOR BOILER OPERATOR-C PCP: Dr. Tonio Fajardo, DO Status:REG RCR Location: History of Present Illness Date of Service: 12/11/22 Chief Complaint: right medial foot ulcer History of Wound: This 77-year-old male returns to the wound healing clinic for reoccurrence of a right medial foot ulcer. Wound care has been Moistened Cass covered with Rippey SAP dressing. Patient diabetic neuropathic. 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 Patient offloading right foot with surgical shoe. Wound culture from 07/18/22 positive for Staphylococcus pseudintermediu, he completed Augmentin. Wound care - He completed 10 applications of Epifix. Collagen hydrogel covered with gauze. Aquaphor to dorsal foot excoriated area. Patient denies constitutional's or pains at this time. No other complaints. Progress of Wound: Right hallux ulcer has gotten smaller this week with the Epifix and placing AMD Foam, doubled stack to help prevent pressure on the ulcer. He has excoriation on the dorsal aspect of his foot. Objective Data Objective Data Vital Signs: Vital Signs Temp Pulse Resp BP O2 Del Method 96.2 F L 107 H 20 H 110/87 H Room Air 12/11/22 13:12 12/11/22 13:12 12/11/22 13:12 12/11/22 13:12 12/11/22 13:12 Oxygen Delivery Method Room Air Charges/Coding Procedures Integumentary 111xxx-113xx: 36944 Mihaela subq tissue 20 sq cm/< Debridement Note Debridement Note Wound debrided: medial foot ulcer Laterality: Right Wound Grade/Stage: Stage III Type of Debridement: Excisional debridement Anesthesia Used: 5% Lidocaine Gel Depth: Down to and including healthy tissue and in the subcutaneous layer Percentage of wound debrided: 100 Instrument Used: 3mm curette Tissue Removed: Devitalized tissue and slough Severity: Fat Layer Exposed Amount of bleeding with debridement: Mild Bleeding Controlled with: Compression and gauze Patient tolerated procedure: Patient tolerated procedure well Post-Debridement Measurements and Additional Note: Post-Debridement Measurements/Treatment - Nurse 1 - General Ulcer Assessment Start: 11/20/22 14:43 Freq: Status: Active Protocol: HEMA Activity Type Activity Date Activity User E-sign Co-sign Detail Recorded Client Recorded Date Recorded By Document 11/20/22 14:43 DL [id number] 11/20/22 14:49 DL Document 11/27/22 14:25 BMF [id number] 11/27/22 14:27 BMF Document 12/06/22 11:35 DL [id number] 12/06/22 11:39 DL Document 12/11/22 13:12 [facility] [id number] 12/11/22 13:21 BMF 11/20/22 11/27/22 12/06/22 14:43 14:25 11:35 - Today's Visit Information Type of service Follow-up Visit Follow-up Visit (Physician/CARPET YARN WINDER OPERATOR (Physician/CARPET YARN WINDER OPERATOR ) ) Arrival Mode Ambulatory,Cane Ambulatory Transfer Assistance None None Accompanied by wei in law Patient Identification Verified (Name & Yes Yes ) Patient Requires Transmission-Based No No Precautions Finger Stick Blood Sugar(mg/dl) (if 157 indicated): Blood Sugar Stated by Patient Vital Signs Temperature (97.8 F-99.1 F) 97.1 F L 97.6 F L 97 F L Temperature Source Temporal Temporal Temporal Pulse Rate (60-100) 111 H 108 H 108 H Pulse Location Monitor Monitor Monitor Respiratory Rate (12-18) 20 H 20 H Respiratory rate source Observation Observation Oxygen Delivery Method Blood Pressure (90/60-120/80) 154/77 H 138/61 H 138/78 H Blood Pressure Mean (mm Hg) 102 86 98 Source Monitor Monitor Monitor Position Sitting Blood Pressure Location Left Arm History Since Last Visit- (Skip if this is Patient's initial visit) Have you changed medications since your No No No last visit? Any new allergies or adverse reactions No No No Had a fall/change in ADL's that may No No No increase risk of falls Signs or symptoms of abuse and/or No No No neglect since last visit Have you been in the hospital since your No No No last visit? Has dressing in place as prescribed Yes Yes Has compression in place as prescribed Yes N/A Yes Has offloadiing in place as prescribed Yes Yes Yes Experienced any changes in pain level or No No No management Left Footwear Diabetic Shoe Right Footwear Surgical Shoe Surgical Shoe Surgical Shoe with pressure with pressure with pressure relief insole relief insole relief insole Pain Scale: 0-10 Numeric Is Patient Pain Free? Yes Yes Yes 12/11/22 13:12 - Today's Visit Information Type of service Follow-up Visit (Physician/CARPET YARN WINDER OPERATOR ) Arrival Mode Ambulatory,Cane Transfer Assistance None Accompanied by WEI IN LAW Patient Identification Verified (Name & Yes ) Patient Requires Transmission-Based No Precautions Finger Stick Blood Sugar(mg/dl) (if indicated): Blood Sugar Vital Signs Temperature (97.8 F-99.1 F) 96.2 F L Temperature Source Temporal Pulse Rate (60-100) 107 H Pulse Location Monitor Respiratory Rate (12-18) 20 H Respiratory rate source Observation Oxygen Delivery Method Room Air Blood Pressure (90/60-120/80) 110/87 H Blood Pressure Mean (mm Hg) 94 Source Monitor Position Sitting Blood Pressure Location Left Forearm History Since Last Visit- (Skip if this is Patient's initial visit) Have you changed medications since your No last visit? Any new allergies or adverse reactions No Had a fall/change in ADL's that may No increase risk of falls Signs or symptoms of abuse and/or No neglect since last visit Have you been in the hospital since your No last visit? Has dressing in place as prescribed Yes Has compression in place as prescribed N/A Has offloadiing in place as prescribed Yes Experienced any changes in pain level or No management Left Footwear Surgical Shoe with pressure relief insole Right Footwear Diabetic Shoe Pain Scale: 0-10 Numeric Is Patient Pain Free? Yes WC - Nurse 1 - General Ulcer Measurement Start: 11/20/22 14:43 Freq: Status: Active Protocol: Activity Type Activity Date Activity User E-sign Co-sign Detail Recorded Client Recorded Date Recorded By Document 11/20/22 14:43 DL [id number] 11/20/22 14:49 DL Document 11/27/22 14:25 [facility] [id number] 11/27/22 14:27 [facility] Document 12/06/22 11:35 DL [id number] 12/06/22 11:39 DL Document 12/11/22 13:12 [facility] [id number] 12/11/22 13:21 BM 11/20/22 11/27/22 12/06/22 14:43 14:25 11:35 Wound Center Nurse 1 #9 Right Inferior Hallux -Combined with other wound No -Current Size (cm) - Length 0.2 0.1 0.1 -Current Size (cm) - Width 0.3 0.1 0.1 -Current Size (cm) - Depth 0.2 0.1 0.1 -Total Square Cm 0.06 0.01 0.01 -Date of Last Picture (Recall this 11/27/22 field) -Photo Taken No Yes Yes -Epithelialization Large 67-100% -Tunneling No -Undermining/Tunneling No -Circular Undermining No -Exudate Amt Small None Present Small -Exudate Type Serosanguineous Serosanguineous -Wound Margin Thickened Distinct, Outline Attached -Granulation Amt Small (1-33%) Small (1-33%) -Granulation Quality [place] Patent Pale -Slough/Fibrin -Necrosis Amt Small (1-33%) Small (1-33%) -Necrotic Tissue Type Adherent Slough Adherent Slough -Structure Exposed N/A N/A -Texture (Anna-wound Skin Appearance) Callus,Scarring Assessed, Friable, Scarring Scarring -Moisture (Anna-wound Skin Appearance) No Abnormality Assessed,Dry/ Dry/Scaly Scaly -Color (Anna-wound Skin Appearance) No Abnormality Assessed No Abnormality -Temperature (Anna-wound Skin No Abnormality No Abnormality No Abnormality Appearance) (Pt Warm) (Pt Warm) (Pt Warm) -Tenderness on Palpation (Anna-wound No No No Skin Appearance) -Ulcer Cleansing Rinsed/ Soap and Water Soap and Water Irrigated with Saline -Foul Odor after Cleansing No No No -Anesthetic Used 5% Lidocaine 5% Lidocaine 5% Lidocaine Gel Gel Gel 12/11/22 13:12 Wound Center Nurse 1 #9 Right Inferior Hallux -Combined with other wound No -Current Size (cm) - Length 0.4 -Current Size (cm) - Width 0.4 -Current Size (cm) - Depth 0.1 -Total Square Cm 0.16 -Date of Last Picture (Recall this 12/11/22 field) -Photo Taken Yes -Epithelialization Small 1-33% -Tunneling No -Undermining/Tunneling No -Circular Undermining No -Exudate Amt Small -Exudate Type Serosanguineous -Wound Margin Distinct, Outline Attached -Granulation Amt None Present (0 %) -Granulation Quality -Slough/Fibrin Yes -Necrosis Amt Large (67-100%) -Necrotic Tissue Type Adherent Slough -Structure Exposed -Texture (Anna-wound Skin Appearance) Assessed, Excoriation, Scarring,Rash -Moisture (Anna-wound Skin Appearance) Assessed -Color (Anna-wound Skin Appearance) Assessed, Erythema -Temperature (Anna-wound Skin No Abnormality Appearance) (Pt Warm) -Tenderness on Palpation (Anna-wound No Skin Appearance) -Ulcer Cleansing Soap and Water -Foul Odor after Cleansing No -Anesthetic Used 5% Lidocaine Gel WC - Nurse 2 - General Ulcer CM Notes Start: 11/20/22 14:43 Freq: Status: Active Protocol: Activity Type Activity Date Activity User E-sign Co-sign Detail Recorded Client Recorded Date Recorded By Document 11/20/22 15:00 [id number] 11/20/22 15:09 Edit Result 11/20/22 15:00 JF (1) [id number] 11/20/22 15:18 JF Edit Result 11/20/22 15:00 JF (2) [id number] 11/20/22 15:20 Document 11/27/22 14:50 [id number] 11/27/22 15:02 Document 12/06/22 11:46 [id number] 12/06/22 11:57 Document 12/11/22 13:30 [id number] 12/11/22 13:33 (1) #9 Right Inferior Hallux - Post Debridement (cm) - Length => 0.4 - Post Debridement (cm) - Width => 0.5 - Post Debridement (cm) - Depth => 0.2 - Total Square (Post) (cm) => 0.20 - Area of Debridement (cm) - Length => 0.4 - Area of Debridement (cm) - Width => 0.5 - Total Square (Area) (cm) => 0.20 - Bioengineered Tissue No => Yes - Type of Bioengineered Tissue => Epifix 18mm Disc - Debridement - Subq, 1st 20sq cm Yes => No - Apply Skin Sub - 1st 25 sq cm - Feet => 1 - Epifix 18mm Disc => 3 (2) #9 Right Inferior Hallux - Expiration Date => 08/20/27 - Product Lot Number => [id number] - Percent Used => 100 - Lot number of Saline Used => [id number] 11/20/22 11/27/22 12/06/22 15:00 14:50 11:46 Wound Center Nurse 2 #9 Right Inferior Hallux -Time 15:02 14:54 11:47 -Correct Patient Yes Yes Yes -Correct Side, Site, Position Yes Yes Yes -Correct Procedure Yes Yes Yes -Procedure Performed Yes Yes Yes -Type of Procedure Debridement Debridement Debridement -Clinical Debridement Subcutaneous Subcutaneous Subcutaneous -Tissue Removed Subcutaneous Subcutaneous Subcutaneous -Post Debridement (cm) - Length 0.4 0.3 0.5 -Post Debridement (cm) - Width 0.5 0.4 0.5 -Post Debridement (cm) - Depth 0.2 0.2 0.2 -Total Square (Post) (cm) 0.20 0.12 0.25 -Area of Debridement (cm) - Length 0.4 0.3 0.5 -Area of Debridement (cm) - Width 0.5 0.4 0.5 -Total Square (Area) (cm) 0.20 0.12 0.25 -Tunneling No No No -Undermining/Tunneling No No No -Circular Undermining No No No -Wound/Ulcer Outcome Not Healed Not Healed Not Healed -Ulcer Cleansing Rinsed/ Rinsed/ Rinsed/ Irrigated with Irrigated with Irrigated with Saline Saline Saline -Foul Odor after Cleansing No No No -Bioengineered Tissue Yes Yes Yes -Type of Bioengineered Tissue Epifix 18mm Epifix 18mm Epifix 18mm Disc Disc Disc -Expiration Date 08/20/27 08/20/27 09/20/27 -Product Lot Number [id number] -Percent Used 100 100 100 -Lot number of Saline Used [id number] -Bleeding Controlled with Pressure Pressure Pressure -Treatment Response Procedure Procedure Procedure Tolerated Well Tolerated Well Tolerated Well -Offloading Yes Yes No -Type of Offloading Surgical Shoe Surgical Shoe -Debridement - Subq, 1st 20sq cm No No No -Apply Skin Sub - 1st 25 sq cm - Feet 1 1 1 -Epifix 18mm Disc 3 3 3 Pain Scale: 0-10 Numeric Is Patient Pain Free? Yes Yes Yes 12/11/22 13:30 Wound Center Nurse 2 #9 Right Inferior Hallux -Time 13:31 -Correct Patient Yes -Correct Side, Site, Position Yes -Correct Procedure Yes -Procedure Performed Yes -Type of Procedure Debridement -Clinical Debridement Subcutaneous -Tissue Removed Subcutaneous -Post Debridement (cm) - Length 0.3 -Post Debridement (cm) - Width 0.3 -Post Debridement (cm) - Depth 0.1 -Total Square (Post) (cm) 0.09 -Area of Debridement (cm) - Length 0.3 -Area of Debridement (cm) - Width 0.3 -Total Square (Area) (cm) 0.09 -Tunneling No -Undermining/Tunneling No -Circular Undermining No -Wound/Ulcer Outcome Not Healed -Ulcer Cleansing Rinsed/ Irrigated with Saline -Foul Odor after Cleansing No -Bioengineered Tissue No -Type of Bioengineered Tissue -Expiration Date -Product Lot Number -Percent Used -Lot number of Saline Used -Bleeding Controlled with Pressure -Treatment Response Procedure Tolerated Well -Offloading Yes -Type of Offloading Surgical Shoe -Debridement - Subq, 1st 20sq cm Yes -Apply Skin Sub - 1st 25 sq cm - Feet -Epifix 18mm Disc Pain Scale: 0-10 Numeric Is Patient Pain Free? Yes - Nurse 3 - General Ulcer D/C NN Start: 11/20/22 14:43 Freq: Status: Active Protocol: Activity Type Activity Date Activity User E-sign Co-sign Detail Recorded Client Recorded Date Recorded By Document 11/20/22 15:35 [id number] 11/20/22 15:36 Document 11/27/22 15:02 [id number] 11/27/22 15:03 Document 12/06/22 11:57 [id number] 12/06/22 11:58 Document 12/11/22 13:57 [id number] 12/11/22 13:58 DL 11/20/22 11/27/22 12/06/22 15:35 15:02 11:57 Wound Care Center Nurse 3 #9 Right Inferior Hallux -Ulcer Cleansing Rinsed/ Rinsed/ Irrigated with Irrigated with Saline Saline -Foul Odor after Cleansing No No No -Other Dressing Epifix AMD pad felt pad -Primary Dressing Covered/Secured with Dry Gauze & Dry Gauze, Dry Gauze,Dry Roll Gauze, Secured with Gauze & Roll Secured with Tape Gauze,Secured Tape with Tape -Other Covering foam padding Treatment Response Procedure Tolerated Well Pain Scale: 0-10 Numeric Is Patient Pain Free? Yes Yes Yes WC - Visit Discharge Discharge Condition Stable Stable Stable Ambulatory Status Ambulatory,Cane Ambulatory Ambulatory Transportation Private Auto Private Auto Private Auto Accompanied by family DIL Medication Reconcilliation completed & Yes Yes provided to patient/care provider Clinical Summary of Care Provided Yes Yes 12/11/22 13:57 Wound Care Center Nurse 3 #9 Right Inferior Hallux -Ulcer Cleansing Rinsed/ Irrigated with Saline -Foul Odor after Cleansing No -Other Dressing hydrogel -Primary Dressing Covered/Secured with Dry Gauze & Roll Gauze, Secured with Tape -Other Covering appature pads/ padding Treatment Response Procedure Tolerated Well Pain Scale: 0-10 Numeric Is Patient Pain Free? Yes WC - Visit Discharge Discharge Condition Stable Ambulatory Status Ambulatory,Cane Transportation Private Auto Accompanied by family Medication Reconcilliation completed & provided to patient/care provider Clinical Summary of Care Provided Assessment/Plan Assessment/Plan (1) Type 2 diabetes mellitus with diabetic polyneuropathy: CODE(S): E11.42 - Type 2 diabetes mellitus with diabetic polyneuropathy (2) Non-pressure chronic ulcer of other part of right foot with fat layer exposed: CODE(S): L97.512 - Non-pressure chronic ulcer of other part of right foot with fat layer exposed (3) History of malignant neoplasm of lung in adulthood: CODE(S): Z85.118 - Personal history of other malignant neoplasm of bronchus and lung PLAN: Plan Patient was evaluated at the wound healing center today.? Wound care - Ten applications of Epifix completed. Collagen hydrogel covered with gauze to the medial foot ulcer daily after washing with soap and water. Apply Aquaphor or Vasoline to the dorsal aspect of foot to moisturize the dry, flaky, excoriated skin. Compression - Single tubigrip Off-loading - Suman shoe has been re-adjusted at the foot and ankle clinic. Alsoplacing the double stacked AMD foam to help prevent pressure on his foot and wrapped with cling. Stressed the importance of off loading and not putting pressure on this portion of his foot. Vascular:? 12/19/21 - Right EULALIA - 1.15, Left EULALIA 1.06.? Right digital 0.74, Left digital 0.71, bilateral triphasic. Venous studies showed bilateral no DVT, Bilateral calf with primary veins with reflux, bilateral SPJ reflux. Wound culture obtained on 07/18/22 positive for Staphylococcus pseudintermediu, he completed Augmentin. Wound culture obtained on 05/18/22 which was positive for Staphylococcus pseudintermediu, Staphylococcus saprophyticus and Anaerobic cocci.? Continue Augmentin. Encouraged high protein diet that is low in carbohydrates and sodium. Follow up one week. Call or come in sooner if develop any questions or concerns. 12/14/22 1456 <Electronically signed by Bonny Glynn NP SENIOR BOILER OPERATOR-C> Cosigner Signature (if applicable): CC: ~ Signed [facility] Work Phone: 1(741) 925-662504-19-2023 Progress note Author Bonny Glynn [facility] December 06, 2022 12:09pm Note Date/Time December 06, 2022 12: 09pm [facility] [address] [place] [id number] Progress Note - Wound Care 12/06/22 1205 MR#: [id number] Acct: [id number] Name: PEDRO HILLMAN Rep #:[id number] : 1945 77 From: Bonny garcia NP SENIOR BOILER OPERATOR-C PCP: Dr. Tonio Fajardo, DO Status:REG RCR Location: History of Present Illness Date of Service: 12/06/22 Chief Complaint: right medial foot ulcer History of Wound: This 77-year-old male returns to the wound healing clinic for reoccurrence of a right medial foot ulcer. Wound care has been Moistened Cass covered with Rippey SAP dressing. Patient diabetic neuropathic. 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 Patient offloading right foot with surgical shoe. Wound culture from 07/18/22 positive for Staphylococcus pseudintermediu, he completed Augmentin. Wound care - Epifix #10 placed today. Patient denies constitutional's or pains at this time. No other complaints. Progress of Wound: Right hallux ulcer has gotten smaller this week placing AMD Foam, doubled stack to help prevent pressure on the ulcer. Getting the pressure off his ulcer has really helped. He has some thickened dry skin surrounding the ulcer that I suspect is caused from the skin prep. Objective Data Objective Data Vital Signs: Vital Signs Temp Pulse Resp BP 97 F L 108 H 20 H 138/78 H 12/06/22 11:35 12/06/22 11:35 12/06/22 11:35 12/06/22 11:35 Charges/Coding Procedures Integumentary 150xxx-152xx: [id number] Skin sub graft face/nk/hf/g Debridement Note Debridement Note Wound debrided: medial foot ulcer Laterality: Right Wound Grade/Stage: Stage III Type of Debridement: Excisional debridement Anesthesia Used: 5% Lidocaine Gel Depth: Down to and including healthy tissue and in the subcutaneous layer Percentage of wound debrided: 100 Instrument Used: 3mm curette Tissue Removed: Devitalized tissue and slough Severity: Fat Layer Exposed Amount of bleeding with debridement: Mild Bleeding Controlled with: Compression and gauze Patient tolerated procedure: Patient tolerated procedure well Post-Debridement Measurements and Additional Note: Post-Debridement Measurements/Treatment - Nurse 1 - General Ulcer Assessment Start: 11/20/22 14:43 Freq: Status: Active Protocol: HEMA Activity Type Activity Date Activity User E-sign Co-sign Detail Recorded Client Recorded Date Recorded By Document 11/20/22 14:43 DL [id number] 11/20/22 14:49 DL Document 11/27/22 14:25 [facility] [id number] 11/27/22 14:27 [facility] Document 12/06/22 11:35 DL [id number] 12/06/22 11:39 DL 11/20/22 11/27/22 12/06/22 14:43 14:25 11:35 - Today's Visit Information Type of service Follow-up Visit Follow-up Visit (Physician/CARPET YARN WINDER OPERATOR (Physician/CARPET YARN WINDER OPERATOR ) ) Arrival Mode Ambulatory,Cane Ambulatory Transfer Assistance None None Accompanied by wei in law Patient Identification Verified (Name & Yes Yes ) Patient Requires Transmission-Based No No Precautions Finger Stick Blood Sugar(mg/dl) (if 157 indicated): Blood Sugar Stated by Patient Vital Signs Temperature (97.8 F-99.1 F) 97.1 F L 97.6 F L 97 F L Temperature Source Temporal Temporal Temporal Pulse Rate (60-100) 111 H 108 H 108 H Pulse Location Monitor Monitor Monitor Respiratory Rate (12-18) 20 H 20 H Respiratory rate source Observation Observation Blood Pressure (90/60-120/80) 154/77 H 138/61 H 138/78 H Blood Pressure Mean (mm Hg) 102 86 98 Source Monitor Monitor Monitor Position Sitting Blood Pressure Location Left Arm History Since Last Visit- (Skip if this is Patient's initial visit) Have you changed medications since your No No No last visit? Any new allergies or adverse reactions No No No Had a fall/change in ADL's that may No No No increase risk of falls Signs or symptoms of abuse and/or No No No neglect since last visit Have you been in the hospital since your No No No last visit? Has dressing in place as prescribed Yes Yes Has compression in place as prescribed Yes N/A Yes Has offloadiing in place as prescribed Yes Yes Yes Experienced any changes in pain level or No No No management Left Footwear Diabetic Shoe Right Footwear Surgical Shoe Surgical Shoe Surgical Shoe with pressure with pressure with pressure relief insole relief insole relief insole Pain Scale: 0-10 Numeric Is Patient Pain Free? Yes Yes Yes - Nurse 1 - General Ulcer Measurement Start: 11/20/22 14:43 Freq: Status: Active Protocol: Activity Type Activity Date Activity User E-sign Co-sign Detail Recorded Client Recorded Date Recorded By Document 11/20/22 14:43 [id number] 11/20/22 14:49 Document 11/27/22 14:25 [facility] [id number] 11/27/22 14:27 [facility] Document 12/06/22 11:35 DL [id number] 12/06/22 11:39 DL 11/20/22 11/27/22 12/06/22 14:43 14:25 11:35 Wound Center Nurse 1 #9 Right Inferior Hallux -Combined with other wound No -Current Size (cm) - Length 0.2 0.1 0.1 -Current Size (cm) - Width 0.3 0.1 0.1 -Current Size (cm) - Depth 0.2 0.1 0.1 -Total Square Cm 0.06 0.01 0.01 -Date of Last Picture (Recall this 11/27/22 field) -Photo Taken No Yes Yes -Epithelialization Large 67-100% -Tunneling No -Undermining/Tunneling No -Circular Undermining No -Exudate Amt Small None Present Small -Exudate Type Serosanguineous Serosanguineous -Wound Margin Thickened Distinct, Outline Attached -Granulation Amt Small (1-33%) Small (1-33%) -Granulation Quality [place] Patent Pale -Necrosis Amt Small (1-33%) Small (1-33%) -Necrotic Tissue Type Adherent Slough Adherent Slough -Structure Exposed N/A N/A -Texture (Anna-wound Skin Appearance) Callus,Scarring Assessed, Friable, Scarring Scarring -Moisture (Anna-wound Skin Appearance) No Abnormality Assessed,Dry/ Dry/Scaly Scaly -Color (Anna-wound Skin Appearance) No Abnormality Assessed No Abnormality -Temperature (Anna-wound Skin No Abnormality No Abnormality No Abnormality Appearance) (Pt Warm) (Pt Warm) (Pt Warm) -Tenderness on Palpation (Anna-wound No No No Skin Appearance) -Ulcer Cleansing Rinsed/ Soap and Water Soap and Water Irrigated with Saline -Foul Odor after Cleansing No No No -Anesthetic Used 5% Lidocaine 5% Lidocaine 5% Lidocaine Gel Gel Gel WC - Nurse 2 - General Ulcer CM Notes Start: 11/20/22 14:43 Freq: Status: Active Protocol: Activity Type Activity Date Activity User E-sign Co-sign Detail Recorded Client Recorded Date Recorded By Document 11/20/22 15:00 [id number] 11/20/22 15:09 Edit Result 11/20/22 15:00 JF (1) [id number] 11/20/22 15:18 JF Edit Result 11/20/22 15:00 (2) [id number] 11/20/22 15:20 Document 11/27/22 14:50 [id number] 11/27/22 15:02 Document 12/06/22 11:46 [id number] 12/06/22 11:57 (1) #9 Right Inferior Hallux - Post Debridement (cm) - Length => 0.4 - Post Debridement (cm) - Width => 0.5 - Post Debridement (cm) - Depth => 0.2 - Total Square (Post) (cm) => 0.20 - Area of Debridement (cm) - Length => 0.4 - Area of Debridement (cm) - Width => 0.5 - Total Square (Area) (cm) => 0.20 - Bioengineered Tissue No => Yes - Type of Bioengineered Tissue => Epifix 18mm Disc - Debridement - Subq, 1st 20sq cm Yes => No - Apply Skin Sub - 1st 25 sq cm - Feet => 1 - Epifix 18mm Disc => 3 (2) #9 Right Inferior Hallux - Expiration Date => 08/20/27 - Product Lot Number => [id number] - Percent Used => 100 - Lot number of Saline Used => [id number] 11/20/22 11/27/22 12/06/22 15:00 14:50 11:46 Wound Center Nurse 2 #9 Right Inferior Hallux -Time 15:02 14:54 11:47 -Correct Patient Yes Yes Yes -Correct Side, Site, Position Yes Yes Yes -Correct Procedure Yes Yes Yes -Procedure Performed Yes Yes Yes -Type of Procedure Debridement Debridement Debridement -Clinical Debridement Subcutaneous Subcutaneous Subcutaneous -Tissue Removed Subcutaneous Subcutaneous Subcutaneous -Post Debridement (cm) - Length 0.4 0.3 0.5 -Post Debridement (cm) - Width 0.5 0.4 0.5 -Post Debridement (cm) - Depth 0.2 0.2 0.2 -Total Square (Post) (cm) 0.20 0.12 0.25 -Area of Debridement (cm) - Length 0.4 0.3 0.5 -Area of Debridement (cm) - Width 0.5 0.4 0.5 -Total Square (Area) (cm) 0.20 0.12 0.25 -Tunneling No No No -Undermining/Tunneling No No No -Circular Undermining No No No -Wound/Ulcer Outcome Not Healed Not Healed Not Healed -Ulcer Cleansing Rinsed/ Rinsed/ Rinsed/ Irrigated with Irrigated with Irrigated with Saline Saline Saline -Foul Odor after Cleansing No No No -Bioengineered Tissue Yes Yes Yes -Type of Bioengineered Tissue Epifix 18mm Epifix 18mm Epifix 18mm Disc Disc Disc -Expiration Date 08/20/27 08/20/27 09/20/27 -Product Lot Number [id number] -Percent Used 100 100 100 -Lot number of Saline Used [id number] -Bleeding Controlled with Pressure Pressure Pressure -Treatment Response Procedure Procedure Procedure Tolerated Well Tolerated Well Tolerated Well -Offloading Yes Yes No -Type of Offloading Surgical Shoe Surgical Shoe -Debridement - Subq, 1st 20sq cm No No No -Apply Skin Sub - 1st 25 sq cm - Feet 1 1 1 -Epifix 18mm Disc 3 3 3 Pain Scale: 0-10 Numeric Is Patient Pain Free? Yes Yes Yes - Nurse 3 - General Ulcer D/C NN Start: 11/20/22 14:43 Freq: Status: Active Protocol: Activity Type Activity Date Activity User E-sign Co-sign Detail Recorded Client Recorded Date Recorded By Document 11/20/22 15:35 DL [id number] 11/20/22 15:36 DL Document 11/27/22 15:02 [id number] 11/27/22 15:03 JF Document 12/06/22 11:57 [id number] 12/06/22 11:58 11/20/22 11/27/22 12/06/22 15:35 15:02 11:57 Wound Care Center Nurse 3 #9 Right Inferior Hallux -Ulcer Cleansing Rinsed/ Rinsed/ Irrigated with Irrigated with Saline Saline -Foul Odor after Cleansing No No No -Other Dressing Epifix AMD pad felt pad -Primary Dressing Covered/Secured with Dry Gauze & Dry Gauze, Dry Gauze,Dry Roll Gauze, Secured with Gauze & Roll Secured with Tape Gauze,Secured Tape with Tape -Other Covering foam padding Treatment Response Procedure Tolerated Well Pain Scale: 0-10 Numeric Is Patient Pain Free? Yes Yes Yes - Visit Discharge Discharge Condition Stable Stable Stable Ambulatory Status Ambulatory,Cane Ambulatory Ambulatory Transportation Private Auto Private Auto Private Auto Accompanied by family DIL Medication Reconcilliation completed & Yes Yes provided to patient/care provider Clinical Summary of Care Provided Yes Yes Assessment/Plan Assessment/Plan (1) Type 2 diabetes mellitus with diabetic polyneuropathy: CODE(S): E11.42 - Type 2 diabetes mellitus with diabetic polyneuropathy (2) Non-pressure chronic ulcer of other part of right foot with fat layer exposed: CODE(S): L97.512 - Non-pressure chronic ulcer of other part of right foot with fat layer exposed (3) History of malignant neoplasm of lung in adulthood: CODE(S): Z85.118 - Personal history of other malignant neoplasm of bronchus and lung PLAN: Plan Patient was evaluated at the wound healing center today.? There is a platau in wound healing, he has been approved for an advanced wound healing product, Epifix to help expedite wound healing. Wound care - Epifix #10 applied today. 100% of the product was used, covered with wound veil and secured with steri strips topped with dry gauze dressing.? Using double stacked AMD foam to help prevent pressure on the ulcer. He is notto get the ulcer wet. If he would need to change his outer dressing over the next week, he was instructed to leave the wound veil in place. Compression - Single tubigrip Off-loading - Suman shoe has been re-adjusted at the foot and ankle clinic. Alsoplacing the double stacked AMD foam to help prevent pressure on his foot and wrapped with cling. Stressed the importance of off loading and not putting pressure on this portion of his foot. Vascular:? 12/19/21 - Right EULALIA - 1.15, Left EULALIA 1.06.? Right digital 0.74, Left digital 0.71, bilateral triphasic. Venous studies showed bilateral no DVT, Bilateral calf with primary veins with reflux, bilateral SPJ reflux. Wound culture obtained on 07/18/22 positive for Staphylococcus pseudintermediu, he completed Augmentin. Wound culture obtained on 05/18/22 which was positive for Staphylococcus pseudintermediu, Staphylococcus saprophyticus and Anaerobic cocci.? Continue Augmentin. Encouraged high protein diet that is low in carbohydrates and sodium. Follow up one week. Call or come in sooner if develop any questions or concerns. 12/06/22 1206 <Electronically signed by Bonny Glynn NP SENIOR BOILER OPERATOR-C> Cosigner Signature (if applicable): CC: ~ Signed [facility] Work Phone: 1(614) 457-712704-11-2023 Progress note Author Bonny Glynn [facility] November 28, 2022 5:24pm Note Date/Time November 27, 2022 3:1 4pm [facility] [address] [place] [address] Progress Note - Wound Care 11/27/22 1513 MR#: [id number] Acct: [id number] Name: PEDRO HILLMAN Rep #:[id number] : 1945 77 From: Bonny garcia SENIOR BOILER OPERATOR SENIOR BOILER OPERATOR-C PCP: Dr. Tonio Fajardo, DO Status:REG RCR Location: History of Present Illness Date of Service: 11/27/22 Chief Complaint: right medial foot ulcer History of Wound: This 77-year-old male returns to the wound healing clinic for reoccurrence of a right medial foot ulcer. Wound care has been Moistened Cass covered with Rippey SAP dressing. Patient diabetic neuropathic. 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 Patient offloading right foot with surgical shoe. Wound culture from 07/18/22 positive for Staphylococcus pseudintermediu, he completed Augmentin. Wound care - Epifix #8 placed today. Patient denies constitutional's or pains at this time. No other complaints. Progress of Wound: Right hallux ulcer has gotten smaller this week placing AMD Foam, doubled stack to help prevent pressure on the ulcer. Getting the pressure off his ulcer has really helped and there is not the callus surrounding the ulcer that he typically has. Objective Data Objective Data Vital Signs: Vital Signs Temp Pulse Resp BP 97.6 F L 108 H 20 H 138/61 H 11/27/22 14:25 11/27/22 14:25 11/20/22 14:43 11/27/22 14:25 Charges/Coding Procedures Integumentary 150xxx-152xx: 43213 Skin sub graft face/nk/hf/g Debridement Note Debridement Note Wound debrided: medial foot ulcer Laterality: Right Wound Grade/Stage: Stage III Type of Debridement: Excisional debridement Anesthesia Used: 5% Lidocaine Gel Depth: Down to and including healthy tissue and in the subcutaneous layer Percentage of wound debrided: 100 Instrument Used: 3mm curette Tissue Removed: Devitalized tissue and slough Severity: Fat Layer Exposed Amount of bleeding with debridement: Mild Bleeding Controlled with: Compression and gauze Patient tolerated procedure: Patient tolerated procedure well Post-Debridement Measurements and Additional Note: Post-Debridement Measurements/Treatment WC - Nurse 1 - General Ulcer Assessment Start: 11/20/22 14:43 Freq: Status: Active Protocol: HEMA Activity Type Activity Date Activity User E-sign Co-sign Detail Recorded Client Recorded Date Recorded By Document 11/20/22 14:43 DL [id number] 11/20/22 14:49 DL Document 11/27/22 14:25 [facility] [id number] 11/27/22 14:27 BM 11/20/22 11/27/22 14:43 14:25 - Today's Visit Information Type of service Follow-up Visit Follow-up Visit (Physician/CARPET YARN WINDER OPERATOR (Physician/CARPET YARN WINDER OPERATOR ) ) Arrival Mode Ambulatory,Cane Ambulatory Transfer Assistance None None Accompanied by wei in law Patient Identification Verified (Name & Yes Yes ) Patient Requires Transmission-Based No No Precautions Finger Stick Blood Sugar(mg/dl) (if 157 indicated): Blood Sugar Stated by Patient Vital Signs Temperature (97.8 F-99.1 F) 97.1 F L 97.6 F L Temperature Source Temporal Temporal Pulse Rate (60-100) 111 H 108 H Pulse Location Monitor Monitor Respiratory Rate (12-18) 20 H Respiratory rate source Observation Blood Pressure (90/60-120/80) 154/77 H 138/61 H Blood Pressure Mean (mm Hg) 102 86 Source Monitor Monitor Position Sitting Blood Pressure Location Left Arm History Since Last Visit- (Skip if this is Patient's initial visit) Have you changed medications since your No No last visit? Any new allergies or adverse reactions No No Had a fall/change in ADL's that may No No increase risk of falls Signs or symptoms of abuse and/or No No neglect since last visit Have you been in the hospital since your No No last visit? Has dressing in place as prescribed Yes Has compression in place as prescribed Yes N/A Has offloadiing in place as prescribed Yes Yes Experienced any changes in pain level or No No management Left Footwear Diabetic Shoe Right Footwear Surgical Shoe Surgical Shoe with pressure with pressure relief insole relief insole Pain Scale: 0-10 Numeric Is Patient Pain Free? Yes Yes - Nurse 1 - General Ulcer Measurement Start: 11/20/22 14:43 Freq: Status: Active Protocol: Activity Type Activity Date Activity User E-sign Co-sign Detail Recorded Client Recorded Date Recorded By Document 11/20/22 14:43 DL [id number] 11/20/22 14:49 DL Document 11/27/22 14:25 BMF [id number] 11/27/22 14:27 BMF 11/20/22 11/27/22 14:43 14:25 Wound Center Nurse 1 #9 Right Inferior Hallux -Combined with other wound No -Current Size (cm) - Length 0.2 0.1 -Current Size (cm) - Width 0.3 0.1 -Current Size (cm) - Depth 0.2 0.1 -Total Square Cm 0.06 0.01 -Date of Last Picture (Recall this 11/27/22 field) -Photo Taken No Yes -Epithelialization Large 67-100% -Tunneling No -Undermining/Tunneling No -Circular Undermining No -Exudate Amt Small None Present -Exudate Type Serosanguineous -Wound Margin Thickened -Granulation Amt Small (1-33%) -Granulation Quality [place] Patent -Necrosis Amt Small (1-33%) -Necrotic Tissue Type Adherent Slough -Structure Exposed N/A -Texture (Anna-wound Skin Appearance) Callus,Scarring Assessed, Scarring -Moisture (Anna-wound Skin Appearance) No Abnormality Assessed,Dry/ Scaly -Color (Anna-wound Skin Appearance) No Abnormality Assessed -Temperature (Anna-wound Skin No Abnormality No Abnormality Appearance) (Pt Warm) (Pt Warm) -Tenderness on Palpation (Anna-wound No No Skin Appearance) -Ulcer Cleansing Rinsed/ Soap and Water Irrigated with Saline -Foul Odor after Cleansing No No -Anesthetic Used 5% Lidocaine 5% Lidocaine Gel Gel WC - Nurse 2 - General Ulcer CM Notes Start: 11/20/22 14:43 Freq: Status: Active Protocol: Activity Type Activity Date Activity User E-sign Co-sign Detail Recorded Client Recorded Date Recorded By Document 11/20/22 15:00 JF [id number] 11/20/22 15:09 JF Edit Result 11/20/22 15:00 JF (1) [id number] 11/20/22 15:18 JF Edit Result 11/20/22 15:00 JF (2) [id number] 11/20/22 15:20 JF Document 11/27/22 14:50 JF [id number] 11/27/22 15:02 JF (1) #9 Right Inferior Hallux - Post Debridement (cm) - Length => 0.4 - Post Debridement (cm) - Width => 0.5 - Post Debridement (cm) - Depth => 0.2 - Total Square (Post) (cm) => 0.20 - Area of Debridement (cm) - Length => 0.4 - Area of Debridement (cm) - Width => 0.5 - Total Square (Area) (cm) => 0.20 - Bioengineered Tissue No => Yes - Type of Bioengineered Tissue => Epifix 18mm Disc - Debridement - Subq, 1st 20sq cm Yes => No - Apply Skin Sub - 1st 25 sq cm - Feet => 1 - Epifix 18mm Disc => 3 (2) #9 Right Inferior Hallux - Expiration Date => 08/20/27 - Product Lot Number => [id number] - Percent Used => 100 - Lot number of Saline Used => [id number] 11/20/22 11/27/22 15:00 14:50 Wound Center Nurse 2 #9 Right Inferior Hallux -Time 15:02 14:54 -Correct Patient Yes Yes -Correct Side, Site, Position Yes Yes -Correct Procedure Yes Yes -Procedure Performed Yes Yes -Type of Procedure Debridement Debridement -Clinical Debridement Subcutaneous Subcutaneous -Tissue Removed Subcutaneous Subcutaneous -Post Debridement (cm) - Length 0.4 0.3 -Post Debridement (cm) - Width 0.5 0.4 -Post Debridement (cm) - Depth 0.2 0.2 -Total Square (Post) (cm) 0.20 0.12 -Area of Debridement (cm) - Length 0.4 0.3 -Area of Debridement (cm) - Width 0.5 0.4 -Total Square (Area) (cm) 0.20 0.12 -Tunneling No No -Undermining/Tunneling No No -Circular Undermining No No -Wound/Ulcer Outcome Not Healed Not Healed -Ulcer Cleansing Rinsed/ Rinsed/ Irrigated with Irrigated with Saline Saline -Foul Odor after Cleansing No No -Bioengineered Tissue Yes Yes -Type of Bioengineered Tissue Epifix 18mm Epifix 18mm Disc Disc -Expiration Date 08/20/27 08/20/27 -Product Lot Number [id number] -Percent Used 100 100 -Lot number of Saline Used [id number] -Bleeding Controlled with Pressure Pressure -Treatment Response Procedure Procedure Tolerated Well Tolerated Well -Offloading Yes Yes -Type of Offloading Surgical Shoe Surgical Shoe -Debridement - Subq, 1st 20sq cm No No -Apply Skin Sub - 1st 25 sq cm - Feet 1 1 -Epifix 18mm Disc 3 3 Pain Scale: 0-10 Numeric Is Patient Pain Free? Yes Yes - Nurse 3 - General Ulcer D/C NN Start: 11/20/22 14:43 Freq: Status: Active Protocol: Activity Type Activity Date Activity User E-sign Co-sign Detail Recorded Client Recorded Date Recorded By Document 11/20/22 15:35 DL [id number] 11/20/22 15:36 DL Document 11/27/22 15:02 JF [id number] 11/27/22 15:03 JF 11/20/22 11/27/22 15:35 15:02 Wound Care Center Nurse 3 #9 Right Inferior Hallux -Ulcer Cleansing Rinsed/ Irrigated with Saline -Foul Odor after Cleansing No No -Other Dressing Epifix AMD pad -Primary Dressing Covered/Secured with Dry Gauze & Dry Gauze, Roll Gauze, Secured with Secured with Tape Tape -Other Covering foam padding Treatment Response Procedure Tolerated Well Pain Scale: 0-10 Numeric Is Patient Pain Free? Yes Yes - Visit Discharge Discharge Condition Stable Stable Ambulatory Status Ambulatory,Cane Ambulatory Transportation Private Auto Private Auto Accompanied by family DIL Medication Reconcilliation completed & Yes provided to patient/care provider Clinical Summary of Care Provided Yes Assessment/Plan Assessment/Plan (1) Type 2 diabetes mellitus with diabetic polyneuropathy: CODE(S): E11.42 - Type 2 diabetes mellitus with diabetic polyneuropathy (2) Non-pressure chronic ulcer of other part of right foot with fat layer exposed: CODE(S): L97.512 - Non-pressure chronic ulcer of other part of right foot with fat layer exposed (3) History of malignant neoplasm of lung in adulthood: CODE(S): Z85.118 - Personal history of other malignant neoplasm of bronchus and lung PLAN: Plan Patient was evaluated at the wound healing center today.? There is a platau in wound healing, he has been approved for an advanced wound healing product, Epifix to help expedite wound healing. Wound care - Epifix #9 applied today. 100% of the product was used, covered with wound veil and secured with steri strips topped with dry gauze dressing.? He is not to get the ulcer wet. If he would need to change his outer dressingover the next week, he was instructed to leave the wound veil in place. Compression - Single tubigrip Off-loading - Suman shoe has been re-adjusted at the foot and ankle clinic. Alsoplacing the double stacked AMD foam to help prevent pressure on his foot and wrapped with cling. Stressed the importance of off loading and not putting pressure on this portion of his foot. Vascular:? 12/19/21 - Right EULALIA - 1.15, Left EUALLIA 1.06.? Right digital 0.74, Left digital 0.71, bilateral triphasic. Venous studies showed bilateral no DVT, Bilateral calf with primary veins with reflux, bilateral SPJ reflux. Wound culture obtained on 07/18/22 positive for Staphylococcus pseudintermediu, he completed Augmentin. Wound culture obtained on 05/18/22 which was positive for Staphylococcus pseudintermediu, Staphylococcus saprophyticus and Anaerobic cocci.? Continue Augmentin. Encouraged high protein diet that is low in carbohydrates and sodium. Follow up one week. Call or come in sooner if develop any questions or concerns. 11/28/226 <Electronically signed by Bonny Glynn NP SENIOR BOILER OPERATOR-C> Cosigner Signature (if applicable): CC: ~ Signed [facility] Work Phone: [phone]) 112-415204-10-2023 Progress note Author Bonny Glynn [facility] November 26, 2022 10:29pm Note Date/Time November 20, 2022 4:18 pm [facility] [address] [place] [address] Progress Note - Wound Care 11/20/22 1618 MR#: [id number] Acct: [id number] Name: PEDOR HILLMAN Rep #:[id number] : 1945 77 From: Bonny garcia NP SENIOR BOILER OPERATOR-C PCP: Dr. Tonio Fajardo, DO Status:REG RCR Location: History of Present Illness Date of Service: 11/20/22 Chief Complaint: right medial foot ulcer History of Wound: This 77-year-old male returns to the wound healing clinic for reoccurrence of a right medial foot ulcer. Wound care has been Moistened Cass covered with Rippey SAP dressing. Patient diabetic neuropathic. 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 Patient offloading right foot with surgical shoe. Wound culture from 07/18/22 positive for Staphylococcus pseudintermediu, he completed Augmentin. Wound care - Epifix #8 placed today. Patient denies constitutional's or pains at this time. No other complaints. Progress of Wound: Right hallux ulcer has gotten smaller this week placing AMD Foam, doubled stack to help prevent pressure on the ulcer. Getting the pressure off his ulcer has really helped and there is not the callus surrounding the ulcer that he typically has. Objective Data Objective Data Vital Signs: Vital Signs Temp Pulse Resp BP 97.1 F L 111 H 20 H 154/77 H 11/20/22 14:43 11/20/22 14:43 11/20/22 14:43 11/20/22 14:43 Charges/Coding Procedures Integumentary 150xxx-152xx: 53570 Skin sub graft face/nk/hf/g Debridement Note Debridement Note Wound debrided: medial foot ulcer Laterality: Right Wound Grade/Stage: Stage III Type of Debridement: Excisional debridement Anesthesia Used: 5% Lidocaine Gel Depth: Down to and including healthy tissue and in the subcutaneous layer Percentage of wound debrided: 100 Instrument Used: 3mm curette Tissue Removed: Devitalized tissue and slough Severity: Fat Layer Exposed Amount of bleeding with debridement: Mild Bleeding Controlled with: Compression and gauze Patient tolerated procedure: Patient tolerated procedure well Post-Debridement Measurements and Additional Note: Post-Debridement Measurements/Treatment - Nurse 1 - General Ulcer Assessment Start: 11/20/22 14:43 Freq: Status: Active Protocol: URBAN.LOWEXT Activity Type Activity Date Activity User E-sign Co-sign Detail Recorded Client Recorded Date Recorded By Document 11/20/22 14:43 DL [id number] 11/20/22 14:49 DL 11/20/22 14:43 - Today's Visit Information Type of service Follow-up Visit (Physician/CARPET YARN WINDER OPERATOR ) Arrival Mode Ambulatory,Cane Transfer Assistance None Patient Identification Verified (Name & Yes ) Patient Requires Transmission-Based No Precautions Finger Stick Blood Sugar(mg/dl) (if 157 indicated): Blood Sugar Stated by Patient Vital Signs Temperature (97.8 F-99.1 F) 97.1 F L Temperature Source Temporal Pulse Rate (60-100) 111 H Pulse Location Monitor Respiratory Rate (12-18) 20 H Respiratory rate source Observation Blood Pressure (90/60-120/80) 154/77 H Blood Pressure Mean (mm Hg) 102 Source Monitor History Since Last Visit- (Skip if this is Patient's initial visit) Have you changed medications since your No last visit? Any new allergies or adverse reactions No Had a fall/change in ADL's that may No increase risk of falls Signs or symptoms of abuse and/or No neglect since last visit Have you been in the hospital since your No last visit? Has compression in place as prescribed Yes Has offloadiing in place as prescribed Yes Experienced any changes in pain level or No management Right Footwear Surgical Shoe with pressure relief insole Pain Scale: 0-10 Numeric Is Patient Pain Free? Yes - Nurse 1 - General Ulcer Measurement Start: 11/20/22 14:43 Freq: Status: Active Protocol: Activity Type Activity Date Activity User E-sign Co-sign Detail Recorded Client Recorded Date Recorded By Document 11/20/22 14:43 DL [id number] 11/20/22 14:49 DL 11/20/22 14:43 Wound Center Nurse 1 #9 Right Inferior Hallux -Current Size (cm) - Length 0.2 -Current Size (cm) - Width 0.3 -Current Size (cm) - Depth 0.2 -Total Square Cm 0.06 -Photo Taken No -Exudate Amt Small -Exudate Type Serosanguineous -Wound Margin Thickened -Granulation Amt Small (1-33%) -Granulation Quality [place] Patent -Necrosis Amt Small (1-33%) -Necrotic Tissue Type Adherent Slough -Structure Exposed N/A -Texture (Anna-wound Skin Appearance) Callus,Scarring -Moisture (Anna-wound Skin Appearance) No Abnormality -Color (Anna-wound Skin Appearance) No Abnormality -Temperature (Anna-wound Skin No Abnormality Appearance) (Pt Warm) -Tenderness on Palpation (Anna-wound No Skin Appearance) -Ulcer Cleansing Rinsed/ Irrigated with Saline -Foul Odor after Cleansing No -Anesthetic Used 5% Lidocaine Gel WC - Nurse 2 - General Ulcer CM Notes Start: 11/20/22 14:43 Freq: Status: Active Protocol: Activity Type Activity Date Activity User E-sign Co-sign Detail Recorded Client Recorded Date Recorded By Document 11/20/22 15:00 [id number] 11/20/22 15:09 JF Edit Result 11/20/22 15:00 JF (1) [id number] 11/20/22 15:18 JF Edit Result 11/20/22 15:00 JF (2) [id number] 11/20/22 15:20 JF (1) #9 Right Inferior Hallux - Post Debridement (cm) - Length => 0.4 - Post Debridement (cm) - Width => 0.5 - Post Debridement (cm) - Depth => 0.2 - Total Square (Post) (cm) => 0.20 - Area of Debridement (cm) - Length => 0.4 - Area of Debridement (cm) - Width => 0.5 - Total Square (Area) (cm) => 0.20 - Bioengineered Tissue No => Yes - Type of Bioengineered Tissue => Epifix 18mm Disc - Debridement - Subq, 1st 20sq cm Yes => No - Apply Skin Sub - 1st 25 sq cm - Feet => 1 - Epifix 18mm Disc => 3 (2) #9 Right Inferior Hallux - Expiration Date => 08/20/27 - Product Lot Number => [id number] - Percent Used => 100 - Lot number of Saline Used => [id number] 11/20/22 15:00 Wound Center Nurse 2 -Time 15:02 -Correct Patient Yes -Correct Side, Site, Position Yes -Correct Procedure Yes -Procedure Performed Yes -Type of Procedure Debridement -Clinical Debridement Subcutaneous -Tissue Removed Subcutaneous -Post Debridement (cm) - Length 0.4 -Post Debridement (cm) - Width 0.5 -Post Debridement (cm) - Depth 0.2 -Total Square (Post) (cm) 0.20 -Area of Debridement (cm) - Length 0.4 -Area of Debridement (cm) - Width 0.5 -Total Square (Area) (cm) 0.20 -Tunneling No -Undermining/Tunneling No -Circular Undermining No -Wound/Ulcer Outcome Not Healed -Ulcer Cleansing Rinsed/ Irrigated with Saline -Foul Odor after Cleansing No -Bioengineered Tissue Yes -Type of Bioengineered Tissue Epifix 18mm Disc -Expiration Date 08/20/27 -Product Lot Number [id number] -Percent Used 100 -Lot number of Saline Used [id number] -Bleeding Controlled with Pressure -Treatment Response Procedure Tolerated Well -Offloading Yes -Type of Offloading Surgical Shoe -Debridement - Subq, 1st 20sq cm No -Apply Skin Sub - 1st 25 sq cm - Feet 1 -Epifix 18mm Disc 3 Pain Scale: 0-10 Numeric Is Patient Pain Free? Yes - Nurse 3 - General Ulcer D/C NN Start: 11/20/22 14:43 Freq: Status: Active Protocol: Activity Type Activity Date Activity User E-sign Co-sign Detail Recorded Client Recorded Date Recorded By Document 11/20/22 15:35 DL [id number] 11/20/22 15:36 DL 11/20/22 15:35 Wound Care Center Nurse 3 #9 Right Inferior Hallux -Foul Odor after Cleansing No -Other Dressing Epifix -Primary Dressing Covered/Secured with Dry Gauze & Roll Gauze, Secured with Tape -Other Covering foam padding Treatment Response Procedure Tolerated Well Pain Scale: 0-10 Numeric Is Patient Pain Free? Yes - Visit Discharge Discharge Condition Stable Ambulatory Status Ambulatory,Cane Transportation Private Auto Accompanied by family Assessment/Plan Assessment/Plan (1) Type 2 diabetes mellitus with diabetic polyneuropathy: CODE(S): E11.42 - Type 2 diabetes mellitus with diabetic polyneuropathy (2) Non-pressure chronic ulcer of other part of right foot with fat layer exposed: CODE(S): L97.512 - Non-pressure chronic ulcer of other part of right foot with fat layer exposed (3) History of malignant neoplasm of lung in adulthood: CODE(S): Z85.118 - Personal history of other malignant neoplasm of bronchus and lung PLAN: Plan Patient was evaluated at the wound healing center today.? There is a platau in wound healing, he has been approved for an advanced wound healing product, Epifix to help expedite wound healing. Wound care - Epifix #8 applied today. 100% of the product was used, covered with wound veil and secured with steri strips.? Topped with a Mepilex dressing.?He is not to get the ulcer wet. If he would need to change his outer dressingover the next week, he was instructed to leave the wound veil in place. Compression - Single tubigrip Off-loading - Suman shoe has been re-adjusted at the foot and ankle clinic. Alsoplacing the double stacked AMD foam to help prevent pressure on his foot. Stressed the importance of off loading and not putting pressure on this portion of his foot. Vascular:? 12/19/21 - Right EULALIA - 1.15, Left EULALIA 1.06.? Right digital 0.74, Left digital 0.71, bilateral triphasic. Venous studies showed bilateral no DVT, Bilateral calf with primary veins with reflux, bilateral SPJ reflux. Wound culture obtained on 07/18/22 positive for Staphylococcus pseudintermediu, he completed Augmentin. Wound culture obtained on 05/18/22 which was positive for Staphylococcus pseudintermediu, Staphylococcus saprophyticus and Anaerobic cocci.? Continue Augmentin. Encouraged high protein diet that is low in carbohydrates and sodium. Follow up one week. Call or come in sooner if develop any questions or concerns. 11/26/222228 <Electronically signed by Bonny Glynn NP SENIOR BOILER OPERATOR-C> Cosigner Signature (if applicable): CC: ~ Signed [facility] Work Phone: 1(857) 410-594102-21-2023 Progress note Author Bonny Glynn [facility] October 10, 2022 3:29pm Note Date/Time October 09, 2022 4:10pm [facility] [address] [place] [id number] Progress Note - Wound Care 10/09/22 1609 MR#: [id number] Acct: [id number] Name: PEDRO HILLMAN Rep #:[id number] : 1945 77 From: Bonny garcia SENIOR BOILER OPERATOR SENIOR BOILER OPERATOR-C PCP: Dr. Tonio Fajardo, DO Status:REG RCR Location: History of Present Illness Date of Service: 10/09/22 Chief Complaint: right foot ulcer History of Wound: This 77-year-old male returns to the wound healing clinic for reoccurrence of a right medial foot ulcer. Wound care has been Moistened Cass covered with Rippey SAP dressing. Patient diabetic neuropathic. 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 Patient offloading right foot with surgical shoe. Wound culture from 07/18/22 positive for Staphylococcus pseudintermediu, he completed Augmentin. Wound care - Epifix #4 applied today. Patient denies constitutional's or pains at this time. No other complaints. Progress of Wound: Right medial foot ulcer has improved and is smaller in size. He has tolerated the Epifix this week. He has been wearing a post surgical shoe. He is feeling better. His PCP, Dr. Fajardo treated for his UTI that was found on his U/A andculture. Objective Data Objective Data Vital Signs: Vital Signs Temp Pulse Resp BP O2 Del Method 97.5 F L 89 22 H 148/63 H Room Air 10/09/22 12:59 10/09/22 12:59 10/09/22 12:59 10/09/22 12:59 09/25/22 14:25 Oxygen Delivery Method Room Air Charges/Coding Procedures Integumentary 150xxx-152xx: 65469 Skin sub graft face/nk/hf/g Debridement Note Debridement Note Wound debrided: medial foot ulcer Laterality: Right Wound Grade/Stage: Stage III Type of Debridement: Excisional debridement Anesthesia Used: 5% Lidocaine Gel Depth: Down to and including healthy tissue and in the subcutaneous layer Percentage of wound debrided: 100 Instrument Used: 3mm curette Tissue Removed: Devitalized tissue and slough Severity: Fat Layer Exposed Amount of bleeding with debridement: Mild Bleeding Controlled with: Compression and gauze Patient tolerated procedure: Patient tolerated procedure well Post-Debridement Measurements and Additional Note: Post-Debridement Measurements/Treatment - Nurse 1 - General Ulcer Assessment Start: 09/25/22 14:25 Freq: Status: Active Protocol: .LOWEXT Activity Type Activity Date Activity User E-sign Co-sign Detail Recorded Client Recorded Date Recorded By Document 09/25/22 14:25 [facility] [id number] 09/25/22 14:32 BMF Document 10/02/22 13:28 ML [id number] 10/02/22 13:32 ML Document 10/09/22 12:59 DL [id number] 10/09/22 13:04 DL 09/25/22 10/02/22 10/09/22 14:25 13:28 12:59 WC - Today's Visit Information Type of service Follow-up Visit Follow-up Visit Follow-up Visit (Physician/CARPET YARN WINDER OPERATOR (Physician/CARPET YARN WINDER OPERATOR (Physician/CARPET YARN WINDER OPERATOR ) ) ) Arrival Mode Ambulatory,Cane Cane Ambulatory,Cane Transfer Assistance None None None Accompanied by WEI IN LAW Patient Identification Verified (Name & Yes Yes Yes ) Patient Requires Transmission-Based No No No Precautions Safety Precautions NA Finger Stick Blood Sugar(mg/dl) (if 164 151 indicated): Blood Sugar Stated by Stated by Patient Patient Vital Signs Temperature (97.8 F-99.1 F) 97.1 F L 97.2 F L 97.5 F L Temperature Source Temporal Temporal Temporal Pulse Rate (60-100) 73 82 89 Pulse Location Monitor Monitor Respiratory Rate (12-18) 16 20 H 22 H Respiratory rate source Observation Observation Observation Oxygen Delivery Method Room Air Blood Pressure (90/60-120/80) 133/47 H 149/69 H 148/63 H Blood Pressure Mean (mm Hg) 75 95 91 Source Monitor Monitor Monitor Position Sitting Sitting Blood Pressure Location Left Arm Right Arm History Since Last Visit- (Skip if this is Patient's initial visit) Have you changed medications since your No No No last visit? Any new allergies or adverse reactions No No No Had a fall/change in ADL's that may No No No increase risk of falls Signs or symptoms of abuse and/or No No No neglect since last visit Have you been in the hospital since your No No last visit? Has dressing in place as prescribed Yes Yes Yes Has compression in place as prescribed N/A N/A N/A Has offloadiing in place as prescribed Yes N/A Yes Experienced any changes in pain level or No No No management Left Footwear Diabetic Shoe Regular Shoe Right Footwear Surgical Shoe Surgical Shoe Surgical Shoe with pressure with pressure with pressure relief insole relief insole relief insole Pain Scale: 0-10 Numeric Is Patient Pain Free? Yes Yes Yes - Nurse 1 - General Ulcer Measurement Start: 09/25/22 14:25 Freq: Status: Active Protocol: Activity Type Activity Date Activity User E-sign Co-sign Detail Recorded Client Recorded Date Recorded By Document 09/25/22 14:25 BMF [id number] 09/25/22 14:32 BMF Document 10/02/22 13:28 ML [id number] 10/02/22 13:32 ML Document 10/09/22 12:59 DL [id number] 10/09/22 13:04 DL 09/25/22 10/02/22 10/09/22 14:25 13:28 12:59 Wound Center Nurse 1 #9 Right Inferior Hallux -Current Size (cm) - Length 0.5 1 0.3 -Current Size (cm) - Width 0.6 1 0.5 -Current Size (cm) - Depth 0.3 0.1 0.2 -Total Square Cm 0.30 1 0.15 -Date of Last Picture (Recall this 09/25/22 field) -Photo Taken Yes No -Epithelialization Small 1-33% -Tunneling No -Undermining/Tunneling No -Circular Undermining No -Exudate Amt Medium Large Small -Exudate Type Serosanguineous Serosanguineous Serosanguineous -Wound Margin Distinct, Distinct, Distinct, Outline Outline Outline Attached Attached Attached -Granulation Amt Large (67-100%) None Present (0 Large (67-100%) %) -Granulation Quality Red [place] Patent -Slough/Fibrin Yes Yes -Necrosis Amt Small (1-33%) Small (1-33%) -Necrotic Tissue Type Adherent Slough Adherent Slough Adherent Slough -Structure Exposed N/A -Texture (Anna-wound Skin Appearance) Assessed, Assessed Callus Scarring -Moisture (Anna-wound Skin Appearance) Assessed, Assessed Dry/Scaly Maceration,Dry/ Scaly -Color (Anna-wound Skin Appearance) Assessed Assessed Hemosiderin Staining -Temperature (Anna-wound Skin No Abnormality No Abnormality No Abnormality Appearance) (Pt Warm) (Pt Warm) (Pt Warm) -Tenderness on Palpation (Anna-wound No No Skin Appearance) -Ulcer Cleansing Soap and Water Soap and Water Soap and Water -Foul Odor after Cleansing No No No -Anesthetic Used 5% Lidocaine 5% Lidocaine 5% Lidocaine Gel Gel Gel WC - Nurse 2 - General Ulcer CM Notes Start: 09/25/22 14:25 Freq: Status: Active Protocol: Activity Type Activity Date Activity User E-sign Co-sign Detail Recorded Client Recorded Date Recorded By Document 09/25/22 14:42 [id number] 09/25/22 14:51 Document 10/02/22 14:14 [id number] 10/02/22 14:17 Document 10/09/22 13:17 [id number] 10/09/22 13:26 09/25/22 10/02/22 10/09/22 14:42 14:14 13:17 Wound Center Nurse 2 #9 Right Inferior Hallux -Time 14:42 14:14 13:23 -Correct Patient Yes Yes Yes -Correct Side, Site, Position Yes Yes Yes -Correct Procedure Yes Yes Yes -Procedure Performed Yes Yes Yes -Type of Procedure Debridement Debridement Debridement -Clinical Debridement Subcutaneous Subcutaneous Subcutaneous -Tissue Removed Subcutaneous Subcutaneous Subcutaneous -Post Debridement (cm) - Length 0.5 0.7 0.6 -Post Debridement (cm) - Width 0.7 0.7 0.6 -Post Debridement (cm) - Depth 0.2 0.2 0.2 -Total Square (Post) (cm) 0.35 0.49 0.36 -Area of Debridement (cm) - Length 0.5 0.7 0.6 -Area of Debridement (cm) - Width 0.7 0.7 0.6 -Total Square (Area) (cm) 0.35 0.49 0.36 -Tunneling No No No -Undermining/Tunneling No No No -Circular Undermining No No No -Wound/Ulcer Outcome Not Healed Not Healed Not Healed -Ulcer Cleansing Rinsed/ Rinsed/ Rinsed/ Irrigated with Irrigated with Irrigated with Saline Saline Saline -Foul Odor after Cleansing No No No -Bioengineered Tissue Yes Yes Yes -Type of Bioengineered Tissue Epifix 18mm Epifix 18mm Epifix 18mm Disc Disc Disc -Expiration Date 06/20/27 05/20/27 06/20/27 -Product Lot Number [id number] -Percent Used 100 100 100 -Lot number of Saline Used [id number] -Bleeding Controlled with Pressure Pressure Pressure -Treatment Response Procedure Procedure Procedure Tolerated Well Tolerated Well Tolerated Well -Offloading Yes Yes Yes -Type of Offloading Surgical Shoe Surgical Shoe Surgical Shoe -Debridement - Subq, 1st 20sq cm No No No -Apply Skin Sub - 1st 25 sq cm - Feet 1 1 1 -Epifix 18mm Disc 3 3 3 Pain Scale: 0-10 Numeric Is Patient Pain Free? Yes Yes Yes - Nurse 3 - General Ulcer D/C NN Start: 09/25/22 14:25 Freq: Status: Active Protocol: Activity Type Activity Date Activity User E-sign Co-sign Detail Recorded Client Recorded Date Recorded By Document 09/25/22 14:52 [id number] 09/25/22 14:53 Document 10/02/22 14:18 [id number] 10/02/22 14:19 09/25/22 10/02/22 14:52 14:18 Wound Care Center Nurse 3 #9 Right Inferior Hallux -Ulcer Cleansing Rinsed/ Rinsed/ Irrigated with Irrigated with Saline Saline -Foul Odor after Cleansing No No -Primary Dressing Applied C Hydrogel ($) Mepilex Border -Primary Dressing Covered/Secured with Dry Gauze Dry Gauze -Mepilex Border 1 1 Pain Scale: 0-10 Numeric Is Patient Pain Free? Yes Yes - Visit Discharge Discharge Condition Stable Stable Ambulatory Status Ambulatory Ambulatory Transportation Private Auto Private Auto Accompanied by LUPE ANDRADE Medication Reconcilliation completed & Yes Yes provided to patient/care provider Clinical Summary of Care Provided Yes Yes Assessment/Plan Assessment/Plan (1) Type 2 diabetes mellitus with diabetic polyneuropathy: CODE(S): E11.42 - Type 2 diabetes mellitus with diabetic polyneuropathy (2) Non-pressure chronic ulcer of other part of right foot with fat layer exposed: CODE(S): L97.512 - Non-pressure chronic ulcer of other part of right foot with fat layer exposed (3) Cough in adult patient: CODE(S): R05.9 - Cough, unspecified (4) Urinary urgency: CODE(S): R39.15 - Urgency of urination (5) Pain with urination: CODE(S): R30.9 - Painful micturition, unspecified (6) History of malignant neoplasm of lung in adulthood: CODE(S): Z85.118 - Personal history of other malignant neoplasm of bronchus and lung (7) Shortness of breath: CODE(S): R06.02 - Shortness of breath PLAN: Plan Patient was evaluated at the wound healing center today.? There is a platau in wound healing, he has been approved for an advanced wound healing product, Epifix to help expedite wound healing. Wound care - Epifix #4 applied today. 100% of the product was used, covered with wound veil and secured with steri strips. Topped with a Mepilex dressing. He is not to get the ulcer wet. If he would need to change his outer dressing over the next week, he was instructed to leave the wound veil in place. Compression - Single tubigrip Off-loading - Suman shoe has been re-adjusted at the foot and ankle clinic. He states it feels better with no pressure on his ulcer. Stressed the importance of off loading and not putting pressure on this portion of his foot. Vascular:? 12/19/21 - Right EULALIA - 1.15, Left EULALIA 1.06.? Right digital 0.74, Left digital 0.71, bilateral triphasic. Venous studies showed bilateral no DVT, Bilateral calf with primary veins with reflux, bilateral SPJ reflux. Wound culture obtained on 07/18/22 positive for Staphylococcus pseudintermediu, he completed Augmentin. Wound culture obtained on 05/18/22 which was positive for Staphylococcus pseudintermediu, Staphylococcus saprophyticus and Anaerobic cocci.? Continue Augmentin. Encouraged high protein diet that is low in carbohydrates and sodium. Follow up one week. Call or come in sooner if develop any questions or concerns. With his bouts of coughing and SOB and expiratory wheezes, His chest xray showedPostop changes of prior CABG, No evidence congestive failure. No pneumothorax. Significant improvement of the area of density;/mass in RIGHT upper lobe with mild residual measuring 2.8 x 2.7 cm. Consider continued follow-up to assess interval change of the RIGHT upper lobe density/mass. Consider follow-up in approximately 3 mos with plain film and CT.. Patient has a recent history or radiation for an upper right lobe lung mass. He has a CT scheduled for today, 10/09/22. His U/A was positive for protein, glucose, occult blood, Nitrites and LeukocyteEsterase. 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 I spoke with his PCP, Dr Fajardo, who was made aware of the results and he said he would treat him from these results. Follow up one week. 10/10/22 1529 <Electronically signed by Bonny Glynn NP SENIOR BOILER OPERATOR-C> Cosigner Signature (if applicable): CC: ~ Signed [facility] Work Phone: [phone]) 509-373102-14-2023 Progress note Author Bonny Glynn [facility] October 03, 2022 4:51pm Note Date/Time September 26, 2022 1 :17pm [facility] [address] [place] [id number] Progress Note - Wound Care 09/25/22 1501 MR#: [id number] Acct: [id number] Name: PEDRO HILLMAN Rep #:[id number] : 1945 77 From: Bonny garcia NP SENIOR BOILER OPERATOR-C PCP: Dr. Tonio Fajardo, DO Status:REG RCR Location: ADDENDUM by FARHEEN Glynn on 10/03/22 at 1651 Addendum [place] [address] Procedures Integumentary 150xxx-152xx: 72674 Skin sub graft face/nk/hf/g 10/03/22 1651<Electronically signed by Bonny Glynn NP SENIOR BOILER OPERATOR-C> Cosigner Signature (if applicable): cc: ~* Signed History of Present Illness Date of Service: 09/25/22 Chief Complaint: right foot ulcer History of Wound: This 77-year-old male returns to the wound healing clinic for reoccurrence of a right medial foot ulcer. Wound care has been Moistened Cass covered with Rippey SAP dressing. Patient diabetic neuropathic. 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 Patient offloading right foot with surgical shoe. Wound culture from 07/18/22 positive for Staphylococcus pseudintermediu, he completed Augmentin. Wound care - Epifix #2 applied today. Patient denies constitutional's or pains at this time. No other complaints. Progress of Wound: Right medial foot ulcer has improved and is smaller in size. He has tolerated the Epifix this week. He has been wearing a post surgical shoe. Objective Data Objective Data Vital Signs: Vital Signs Temp Pulse Resp BP O2 Del Method 97.1 F L 73 16 133/47 H Room Air 09/25/22 14:25 09/25/22 14:25 09/25/22 14:25 09/25/22 14:25 09/25/22 14:25 Oxygen Delivery Method Room Air Charges/Coding Procedures Integumentary 150xxx-152xx: 90731 Skin sub graft trnk/arm/leg Debridement Note Debridement Note Wound debrided: medial foot ulcer Laterality: Right Wound Grade/Stage: Stage III Type of Debridement: Excisional debridement Anesthesia Used: 5% Lidocaine Gel Depth: Down to and including healthy tissue and in the subcutaneous layer Percentage of wound debrided: 100 Instrument Used: 3mm curette Tissue Removed: Devitalized tissue and slough Severity: Fat Layer Exposed Amount of bleeding with debridement: Mild Bleeding Controlled with: Compression and gauze Patient tolerated procedure: Patient tolerated procedure well Post-Debridement Measurements and Additional Note: Post-Debridement Measurements/Treatment - Nurse 1 - General Ulcer Assessment Start: 09/25/22 14:25 Freq: Status: Active Protocol: .LOWMICHOACANOT Activity Type Activity Date Activity User E-sign Co-sign Detail Recorded Client Recorded Date Recorded By Document 09/25/22 14:25 [facility] [id number] 09/25/22 14:32 [facility] 09/25/22 14:25 - Today's Visit Information Type of service Follow-up Visit (Physician/CARPET YARN WINDER OPERATOR ) Arrival Mode Ambulatory,Cane Transfer Assistance None Accompanied by WEI IN LAW Patient Identification Verified (Name & Yes ) Patient Requires Transmission-Based No Precautions Vital Signs Temperature (97.8 F-99.1 F) 97.1 F L Temperature Source Temporal Pulse Rate (60-100) 73 Pulse Location Monitor Respiratory Rate (12-18) 16 Respiratory rate source Observation Oxygen Delivery Method Room Air Blood Pressure (90/60-120/80) 133/47 H Blood Pressure Mean (mm Hg) 75 Source Monitor Position Sitting Blood Pressure Location Left Arm History Since Last Visit- (Skip if this is Patient's initial visit) Have you changed medications since your No last visit? Any new allergies or adverse reactions No Had a fall/change in ADL's that may No increase risk of falls Signs or symptoms of abuse and/or No neglect since last visit Have you been in the hospital since your No last visit? Has dressing in place as prescribed Yes Has compression in place as prescribed N/A Has offloadiing in place as prescribed Yes Experienced any changes in pain level or No management Left Footwear Diabetic Shoe Right Footwear Surgical Shoe with pressure relief insole Pain Scale: 0-10 Numeric Is Patient Pain Free? Yes WC - Nurse 1 - General Ulcer Measurement Start: 09/25/22 14:25 Freq: Status: Active Protocol: Activity Type Activity Date Activity User E-sign Co-sign Detail Recorded Client Recorded Date Recorded By Document 09/25/22 14:25 [facility] [id number] 09/25/22 14:32 [facility] 09/25/22 14:25 Wound Center Nurse 1 #9 Right Inferior Hallux -Current Size (cm) - Length 0.5 -Current Size (cm) - Width 0.6 -Current Size (cm) - Depth 0.3 -Total Square Cm 0.30 -Date of Last Picture (Recall this 09/25/22 field) -Photo Taken Yes -Epithelialization Small 1-33% -Tunneling No -Undermining/Tunneling No -Circular Undermining No -Exudate Amt Medium -Exudate Type Serosanguineous -Wound Margin Distinct, Outline Attached -Granulation Amt Large (67-100%) -Granulation Quality Red -Slough/Fibrin Yes -Necrosis Amt Small (1-33%) -Necrotic Tissue Type Adherent Slough -Texture (Anna-wound Skin Appearance) Assessed, Scarring -Moisture (Anna-wound Skin Appearance) Assessed, Maceration,Dry/ Scaly -Color (Anna-wound Skin Appearance) Assessed -Temperature (Anna-wound Skin No Abnormality Appearance) (Pt Warm) -Tenderness on Palpation (Anna-wound No Skin Appearance) -Ulcer Cleansing Soap and Water -Foul Odor after Cleansing No -Anesthetic Used 5% Lidocaine Gel WC - Nurse 2 - General Ulcer CM Notes Start: 09/25/22 14:25 Freq: Status: Active Protocol: Activity Type Activity Date Activity User E-sign Co-sign Detail Recorded Client Recorded Date Recorded By Document 09/25/22 14:42 DORA [id number] 09/25/22 14:51 DORA 09/25/22 14:42 Wound Center Nurse 2 -Time 14:42 -Correct Patient Yes -Correct Side, Site, Position Yes -Correct Procedure Yes -Procedure Performed Yes -Type of Procedure Debridement -Clinical Debridement Subcutaneous -Tissue Removed Subcutaneous -Post Debridement (cm) - Length 0.5 -Post Debridement (cm) - Width 0.7 -Post Debridement (cm) - Depth 0.2 -Total Square (Post) (cm) 0.35 -Area of Debridement (cm) - Length 0.5 -Area of Debridement (cm) - Width 0.7 -Total Square (Area) (cm) 0.35 -Tunneling No -Undermining/Tunneling No -Circular Undermining No -Wound/Ulcer Outcome Not Healed -Ulcer Cleansing Rinsed/ Irrigated with Saline -Foul Odor after Cleansing No -Bioengineered Tissue Yes -Type of Bioengineered Tissue Epifix 18mm Disc -Expiration Date 06/20/27 -Product Lot Number [id number] -Percent Used 100 -Lot number of Saline Used [id number] -Bleeding Controlled with Pressure -Treatment Response Procedure Tolerated Well -Offloading Yes -Type of Offloading Surgical Shoe -Debridement - Subq, 1st 20sq cm No -Apply Skin Sub - 1st 25 sq cm - Feet 1 -Epifix 18mm Disc 3 Pain Scale: 0-10 Numeric Is Patient Pain Free? Yes - Nurse 3 - General Ulcer D/C NN Start: 09/25/22 14:25 Freq: Status: Active Protocol: Activity Type Activity Date Activity User E-sign Co-sign Detail Recorded Client Recorded Date Recorded By Document 09/25/22 14:52 DORA [id number] 09/25/22 14:53 DORA 09/25/22 14:52 Wound Care Center Nurse 3 #9 Right Inferior Hallux -Ulcer Cleansing Rinsed/ Irrigated with Saline -Foul Odor after Cleansing No -Primary Dressing Applied C Hydrogel ($) -Primary Dressing Covered/Secured with Dry Gauze -Mepilex Border 1 Pain Scale: 0-10 Numeric Is Patient Pain Free? Yes - Visit Discharge Discharge Condition Stable Ambulatory Status Ambulatory Transportation Private Auto Accompanied by LUPE Medication Reconcilliation completed & Yes provided to patient/care provider Clinical Summary of Care Provided Yes Assessment/Plan Assessment/Plan (1) Type 2 diabetes mellitus with diabetic polyneuropathy: CODE(S): E11.42 - Type 2 diabetes mellitus with diabetic polyneuropathy (2) Non-pressure chronic ulcer of other part of right foot with fat layer exposed: CODE(S): L97.512 - Non-pressure chronic ulcer of other part of right foot with fat layer exposed PLAN: Plan Patient was evaluated at the wound healing center today.? There is a platau in wound healing, he has been approved for an advanced wound healing product, Epifix to help expedite wound healing. Wound care - Epifix #2 applied today. 100% of the product was used, covered with wound veil and secured with steri strips. Topped with a Mepilex dressing. He is not to get the ulcer wet. If he would need to change his outer dressing over the next week, he was instructed to leave the wound veil in place. Compression - Single tubigrip Off-loading - Suman shoe has been re-adjusted at the foot and ankle clinic. He states it feels better with no pressure on his ulcer. Stressed the importance of off loading and not putting pressure on this portion of his foot. Vascular:? 12/19/21 - Right EULALIA - 1.15, Left EULALIA 1.06.? Right digital 0.74, Left digital 0.71, bilateral triphasic. Venous studies showed bilateral no DVT, Bilateral calf with primary veins with reflux, bilateral SPJ reflux. Wound culture obtained on 07/18/22 positive for Staphylococcus pseudintermediu, he completed Augmentin. Wound culture obtained on 05/18/22 which was positive for Staphylococcus pseudintermediu, Staphylococcus saprophyticus and Anaerobic cocci.? Continue Augmentin. Encouraged high protein diet that is low in carbohydrates and sodium. Follow up one week. Call or come in sooner if develop any questions or concerns. 09/26/22 1317 <Electronically signed by Bonny Glynn NP SENIOR BOILER OPERATOR-C> Cosigner Signature (if applicable): CC: ~ Signed [facility] Work Phone: 1(689) 588-714202-14-2023 Progress note Author Bonny Glynn [facility] October 03, 2022 4:49pm Note Date/Time October 02, 2022 2:57pm [facility] [address] [place] [address] Progress Note - Wound Care 10/02/22 1457 MR#: [id number] Acct: [id number] Name: PEDRO HILLMAN Rep #:[id number] : 1945 77 From: Bonny Gillis SENIOR BOILER OPERATOR SENIOR BOILER OPERATOR-C PCP: Dr. Tonio Fajardo, DO Status:REG RCR Location: History of Present Illness Date of Service: 10/02/22 Chief Complaint: right foot ulcer History of Wound: This 77-year-old male returns to the wound healing clinic for reoccurrence of a right medial foot ulcer. Wound care has been Moistened Cass covered with Rippey SAP dressing. Patient diabetic neuropathic. 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 Patient offloading right foot with surgical shoe. Wound culture from 07/18/22 positive for Staphylococcus pseudintermediu, he completed Augmentin. Wound care - Epifix #3 applied today. Patient denies constitutional's or pains at this time. No other complaints. Progress of Wound: Right medial foot ulcer has improved and is smaller in size. He has tolerated the Epifix this week. He has been wearing a post surgical shoe. He comes in today with a cough that causes him to turn red and causes him to have a difficult time catching his breath. He has expiratory wheezes bilaterally. He has been taking plain Mucinex to help with his cough. He also is complaining ofburning and urgency with urination. He states he was up to void so many times that the cat finally stopped following me to the bathroom. Objective Data Objective Data Vital Signs: Vital Signs Temp Pulse Resp BP O2 Del Method 97.2 F L 82 20 H 149/69 H Room Air 10/02/22 13:28 10/02/22 13:28 10/02/22 13:28 10/02/22 13:28 09/25/22 14:25 Oxygen Delivery Method Room Air Charges/Coding Visit Charges Office Visits / Consults: 06777 OV L3 Est (25 modifier) Procedures Integumentary 150xxx-152xx: 70055 Skin sub graft face/nk/hf/g Physical Exam Const alert and oriented x3 Constitutional Narrative: Patient appears pale and does not look like he feels well. General Appearance: cooperative HEENT normocephalic Lymph Lymphatic: no lymphedema noted Resp Resp Narrative: Moist, harsh, non productive cough present. Patient becomes very red faced withcoughing and it takes a moment for him to catch his breath after a coughing episode. He is having expiratory wheezes bilaterally. Cardio regular rate and regular rhythm Extremity normal capillary refill General Extremity: Negative for edema Skin Wound Narrative: Right medial foot ulcer is slightly smaller in size. Ulcer bed is beefy pink. Neuro Speech: speech normal Psych affect normal Debridement Note Debridement Note Wound debrided: medial foot ulcer Laterality: Right Wound Grade/Stage: Stage III Type of Debridement: Excisional debridement Anesthesia Used: 5% Lidocaine Gel Depth: Down to and including healthy tissue and in the subcutaneous layer Percentage of wound debrided: 100 Instrument Used: 3mm curette Tissue Removed: Devitalized tissue and slough Severity: Fat Layer Exposed Amount of bleeding with debridement: Mild Bleeding Controlled with: Compression and gauze Patient tolerated procedure: Patient tolerated procedure well Post-Debridement Measurements and Additional Note: Post-Debridement Measurements/Treatment - Nurse 1 - General Ulcer Assessment Start: 09/25/22 14:25 Freq: Status: Active Protocol: HEMA Activity Type Activity Date Activity User E-sign Co-sign Detail Recorded Client Recorded Date Recorded By Document 09/25/22 14:25 [facility] [id number] 09/25/22 14:32 [facility] Document 10/02/22 13:28 ML [id number] 10/02/22 13:32 ML 09/25/22 10/02/22 14:25 13:28 - Today's Visit Information Type of service Follow-up Visit Follow-up Visit (Physician/CARPET YARN WINDER OPERATOR (Physician/CARPET YARN WINDER OPERATOR ) ) Arrival Mode Ambulatory,Cane Cane Transfer Assistance None None Accompanied by WEI IN LAW Patient Identification Verified (Name & Yes Yes ) Patient Requires Transmission-Based No No Precautions Safety Precautions NA Finger Stick Blood Sugar(mg/dl) (if 164 indicated): Blood Sugar Stated by Patient Vital Signs Temperature (97.8 F-99.1 F) 97.1 F L 97.2 F L Temperature Source Temporal Temporal Pulse Rate (60-100) 73 82 Pulse Location Monitor Monitor Respiratory Rate (12-18) 16 20 H Respiratory rate source Observation Observation Oxygen Delivery Method Room Air Blood Pressure (90/60-120/80) 133/47 H 149/69 H Blood Pressure Mean (mm Hg) 75 95 Source Monitor Monitor Position Sitting Sitting Blood Pressure Location Left Arm Right Arm History Since Last Visit- (Skip if this is Patient's initial visit) Have you changed medications since your No No last visit? Any new allergies or adverse reactions No No Had a fall/change in ADL's that may No No increase risk of falls Signs or symptoms of abuse and/or No No neglect since last visit Have you been in the hospital since your No last visit? Has dressing in place as prescribed Yes Yes Has compression in place as prescribed N/A N/A Has offloadiing in place as prescribed Yes N/A Experienced any changes in pain level or No No management Left Footwear Diabetic Shoe Regular Shoe Right Footwear Surgical Shoe Surgical Shoe with pressure with pressure relief insole relief insole Pain Scale: 0-10 Numeric Is Patient Pain Free? Yes Yes WC - Nurse 1 - General Ulcer Measurement Start: 09/25/22 14:25 Freq: Status: Active Protocol: Activity Type Activity Date Activity User E-sign Co-sign Detail Recorded Client Recorded Date Recorded By Document 09/25/22 14:25 [facility] [id number] 09/25/22 14:32 [facility] Document 10/02/22 13:28 ML [id number] 10/02/22 13:32 ML 09/25/22 10/02/22 14:25 13:28 Wound Center Nurse 1 #9 Right Inferior Hallux -Current Size (cm) - Length 0.5 1 -Current Size (cm) - Width 0.6 1 -Current Size (cm) - Depth 0.3 0.1 -Total Square Cm 0.30 1 -Date of Last Picture (Recall this 09/25/22 field) -Photo Taken Yes -Epithelialization Small 1-33% -Tunneling No -Undermining/Tunneling No -Circular Undermining No -Exudate Amt Medium Large -Exudate Type Serosanguineous Serosanguineous -Wound Margin Distinct, Distinct, Outline Outline Attached Attached -Granulation Amt Large (67-100%) None Present (0 %) -Granulation Quality Red -Slough/Fibrin Yes Yes -Necrosis Amt Small (1-33%) -Necrotic Tissue Type Adherent Slough Adherent Slough -Texture (Anna-wound Skin Appearance) Assessed, Assessed Scarring -Moisture (Anna-wound Skin Appearance) Assessed, Assessed Maceration,Dry/ Scaly -Color (Anna-wound Skin Appearance) Assessed Assessed -Temperature (Anna-wound Skin No Abnormality No Abnormality Appearance) (Pt Warm) (Pt Warm) -Tenderness on Palpation (Anna-wound No No Skin Appearance) -Ulcer Cleansing Soap and Water Soap and Water -Foul Odor after Cleansing No No -Anesthetic Used 5% Lidocaine 5% Lidocaine Gel Gel WC - Nurse 2 - General Ulcer CM Notes Start: 09/25/22 14:25 Freq: Status: Active Protocol: Activity Type Activity Date Activity User E-sign Co-sign Detail Recorded Client Recorded Date Recorded By Document 09/25/22 14:42 [id number] 09/25/22 14:51 Document 10/02/22 14:14 [id number] 10/02/22 14:17 09/25/22 10/02/22 14:42 14:14 Wound Center Nurse 2 #9 Right Inferior Hallux -Time 14:42 14:14 -Correct Patient Yes Yes -Correct Side, Site, Position Yes Yes -Correct Procedure Yes Yes -Procedure Performed Yes Yes -Type of Procedure Debridement Debridement -Clinical Debridement Subcutaneous Subcutaneous -Tissue Removed Subcutaneous Subcutaneous -Post Debridement (cm) - Length 0.5 0.7 -Post Debridement (cm) - Width 0.7 0.7 -Post Debridement (cm) - Depth 0.2 0.2 -Total Square (Post) (cm) 0.35 0.49 -Area of Debridement (cm) - Length 0.5 0.7 -Area of Debridement (cm) - Width 0.7 0.7 -Total Square (Area) (cm) 0.35 0.49 -Tunneling No No -Undermining/Tunneling No No -Circular Undermining No No -Wound/Ulcer Outcome Not Healed Not Healed -Ulcer Cleansing Rinsed/ Rinsed/ Irrigated with Irrigated with Saline Saline -Foul Odor after Cleansing No No -Bioengineered Tissue Yes Yes -Type of Bioengineered Tissue Epifix 18mm Epifix 18mm Disc Disc -Expiration Date 06/20/27 05/20/27 -Product Lot Number [id number] -Percent Used 100 100 -Lot number of Saline Used [id number] -Bleeding Controlled with Pressure Pressure -Treatment Response Procedure Procedure Tolerated Well Tolerated Well -Offloading Yes Yes -Type of Offloading Surgical Shoe Surgical Shoe -Debridement - Subq, 1st 20sq cm No No -Apply Skin Sub - 1st 25 sq cm - Feet 1 1 -Epifix 18mm Disc 3 3 Pain Scale: 0-10 Numeric Is Patient Pain Free? Yes Yes - Nurse 3 - General Ulcer D/C NN Start: 09/25/22 14:25 Freq: Status: Active Protocol: Activity Type Activity Date Activity User E-sign Co-sign Detail Recorded Client Recorded Date Recorded By Document 09/25/22 14:52 [id number] 09/25/22 14:53 Document 10/02/22 14:18 [id number] 10/02/22 14:19 09/25/22 10/02/22 14:52 14:18 Wound Care Center Nurse 3 #9 Right Inferior Hallux -Ulcer Cleansing Rinsed/ Rinsed/ Irrigated with Irrigated with Saline Saline -Foul Odor after Cleansing No No -Primary Dressing Applied C Hydrogel ($) Mepilex Border -Primary Dressing Covered/Secured with Dry Gauze Dry Gauze -Mepilex Border 1 1 Pain Scale: 0-10 Numeric Is Patient Pain Free? Yes Yes - Visit Discharge Discharge Condition Stable Stable Ambulatory Status Ambulatory Ambulatory Transportation Private Auto Private Auto Accompanied by LUPE ANDRADE Medication Reconcilliation completed & Yes Yes provided to patient/care provider Clinical Summary of Care Provided Yes Yes Assessment/Plan Assessment/Plan (1) Type 2 diabetes mellitus with diabetic polyneuropathy: CODE(S): E11.42 - Type 2 diabetes mellitus with diabetic polyneuropathy (2) Non-pressure chronic ulcer of other part of right foot with fat layer exposed: CODE(S): L97.512 - Non-pressure chronic ulcer of other part of right foot with fat layer exposed (3) Cough in adult patient: CODE(S): R05.9 - Cough, unspecified (4) Urinary urgency: CODE(S): R39.15 - Urgency of urination (5) Pain with urination: CODE(S): R30.9 - Painful micturition, unspecified (6) History of malignant neoplasm of lung in adulthood: CODE(S): Z85.118 - Personal history of other malignant neoplasm of bronchus and lung (7) Shortness of breath: CODE(S): R06.02 - Shortness of breath PLAN: Plan Patient was evaluated at the wound healing center today.? There is a platau in wound healing, he has been approved for an advanced wound healing product, Epifix to help expedite wound healing. Wound care - Epifix #3 applied today. 100% of the product was used, covered with wound veil and secured with steri strips. Topped with a Mepilex dressing. He is not to get the ulcer wet. If he would need to change his outer dressing over the next week, he was instructed to leave the wound veil in place. Compression - Single tubigrip Off-loading - Suman shoe has been re-adjusted at the foot and ankle clinic. He states it feels better with no pressure on his ulcer. Stressed the importance of off loading and not putting pressure on this portion of his foot. Vascular:? 12/19/21 - Right EULALIA - 1.15, Left EULALIA 1.06.? Right digital 0.74, Left digital 0.71, bilateral triphasic. Venous studies showed bilateral no DVT, Bilateral calf with primary veins with reflux, bilateral SPJ reflux. Wound culture obtained on 07/18/22 positive for Staphylococcus pseudintermediu, he completed Augmentin. Wound culture obtained on 05/18/22 which was positive for Staphylococcus pseudintermediu, Staphylococcus saprophyticus and Anaerobic cocci.? Continue Augmentin. Encouraged high protein diet that is low in carbohydrates and sodium. Follow up one week. Call or come in sooner if develop any questions or concerns. With his bouts of coughing and SOB and expiratory wheezes, I am ordering a chestxray. Patient has a recent history or radiation for an upper right lobe lung mass. He is supposed to have either a CT scan or MRI next week, but with the severity of his symptoms, a chest xray today is necessary. Also will order a U/A with culture and sensitivity since he is complaining of urinary urgency, frequency and burning. I phoned his PCP's office, Dr. Fajardo, and left a message about what I orderedfor the patient due the severity of his symptoms. Instructed patient and his daughter that if his symptoms worsen, they should go to the ED. 10/03/22 1649 <Electronically signed by Bonny Glynn NP SENIOR BOILER OPERATOR-C> Cosigner Signature (if applicable): CC: ~ Signed [facility] Work Phone: 1(428) 326-723801-10-2023 Progress note Author Bonny Glynn [facility] August 29, 2022 3:36pm Note Date/Time August 29, 2022 2 :32pm [facility] [address] [place] [address] Progress Note - Wound Care 08/29/22 1429 MR#: [id number] Acct: [id number] Name: PEDRO HILLMAN Rep #:[id number] : 1945 77 From: Bonny Gillis SENIOR BOILER OPERATOR SENIOR BOILER OPERATOR-C PCP: Dr. Tonio Fajardo, DO Status:REG RCR Location: History of Present Illness Date of Service: 08/29/22 Chief Complaint: right foot ulcer History of Wound: This 77-year-old male returns to the wound healing clinic for reoccurrence of a right medial foot ulcer. Wound care has been Moistened Cass covered with Rippey SAP dressing. Patient diabetic neuropathic. 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 Patient offloading right foot with surgical shoe. Wound culture from 07/18/22 positive for Staphylococcus pseudintermediu, he is being treated with Augmentin. Patient denies constitutional's or pains at this time. No other complaints. Progress of Wound: Right medial foot ulcer is stable, it is not showing much improvement. The woundbed is beefy pink. He had his offloading shoe re-modified at the foot and ankle clinic and states he is no longer having pressure on that area. Objective Data Objective Data Vital Signs: Vital Signs Temp Pulse Resp BP O2 Del Method 96.5 F L 77 16 125/95 H Room Air 08/29/22 13:17 08/29/22 13:17 08/29/22 13:17 08/29/22 13:17 08/29/22 13:17 Oxygen Delivery Method Room Air Charges/Coding Procedures Integumentary 111xxx-113xx: 68972 Mihaela subq tissue 20 sq cm/< Debridement Note Debridement Note Wound debrided: medial foot ulcer Laterality: Right Wound Grade/Stage: Stage II Type of Debridement: Excisional debridement Anesthesia Used: 5% Lidocaine Gel Depth: Down to and including healthy tissue and in the subcutaneous layer Percentage of wound debrided: 100 Instrument Used: #15 blade (pickups) Tissue Removed: Devitalized tissue and slough Severity: Fat Layer Exposed Amount of bleeding with debridement: Mild Bleeding Controlled with: Compression and gauze and Silver Nitrate (to the edge at 3 o'clock) Patient tolerated procedure: Patient tolerated procedure well Post-Debridement Measurements and Additional Note: Post-Debridement Measurements/Treatment - Nurse 1 - General Ulcer Assessment Start: 08/29/22 13:15 Freq: Status: Active Protocol: HEMA Activity Type Activity Date Activity User E-sign Co-sign Detail Recorded Client Recorded Date Recorded By Document 08/29/22 13:17 [facility] [id number] 08/29/22 13:22 [facility] 08/29/22 13:17 WC - Today's Visit Information Type of service Follow-up Visit (Physician/CARPET YARN WINDER OPERATOR ) Arrival Mode Ambulatory,Cane Transfer Assistance None Accompanied by WEI Patient Identification Verified (Name & Yes ) Patient Requires Transmission-Based No Precautions Vital Signs Temperature (97.8 F-99.1 F) 96.5 F L Temperature Source Temporal Pulse Rate (60-100) 77 Pulse Location Monitor Respiratory Rate (12-18) 16 Respiratory rate source Observation Oxygen Delivery Method Room Air Blood Pressure (90/60-120/80) 125/95 H Blood Pressure Mean (mm Hg) 105 Source Monitor Position Sitting Blood Pressure Location Left Arm History Since Last Visit- (Skip if this is Patient's initial visit) Have you changed medications since your No last visit? Any new allergies or adverse reactions No Had a fall/change in ADL's that may No increase risk of falls Signs or symptoms of abuse and/or No neglect since last visit Have you been in the hospital since your No last visit? Has dressing in place as prescribed Yes Has compression in place as prescribed N/A Has offloadiing in place as prescribed Yes Experienced any changes in pain level or No management Left Footwear Surgical Shoe with pressure relief insole Right Footwear Diabetic Shoe Pain Scale: 0-10 Numeric Is Patient Pain Free? Yes - Nurse 1 - General Ulcer Measurement Start: 08/29/22 13:15 Freq: Status: Active Protocol: Activity Type Activity Date Activity User E-sign Co-sign Detail Recorded Client Recorded Date Recorded By Document 08/29/22 13:17 [facility] [id number] 08/29/22 13:22 [facility] 08/29/22 13:17 Wound Center Nurse 1 #9 Right Inferior Hallux -Combined with other wound No -Current Size (cm) - Length 0.5 -Current Size (cm) - Width 0.8 -Current Size (cm) - Depth 0.3 -Total Square Cm 0.40 -Date of Last Picture (Recall this 08/29/22 field) -Photo Taken Yes -Epithelialization None Present -Tunneling No -Undermining/Tunneling No -Circular Undermining No -Exudate Amt Medium -Exudate Type Serosanguineous -Wound Margin Distinct, Outline Attached -Granulation Amt Large (67-100%) -Granulation Quality Red -Slough/Fibrin Yes -Necrosis Amt Small (1-33%) -Necrotic Tissue Type Adherent Slough -Texture (Anna-wound Skin Appearance) Assessed, Scarring -Moisture (Anna-wound Skin Appearance) Assessed, Maceration -Color (Anna-wound Skin Appearance) Assessed, Erythema -Temperature (Anna-wound Skin No Abnormality Appearance) (Pt Warm) -Tenderness on Palpation (Anna-wound No Skin Appearance) -Ulcer Cleansing Rinsed/ Irrigated with Saline -Foul Odor after Cleansing No -Anesthetic Used 5% Lidocaine Gel - Nurse 2 - General Ulcer CM Notes Start: 08/29/22 13:15 Freq: Status: Active Protocol: Activity Type Activity Date Activity User E-sign Co-sign Detail Recorded Client Recorded Date Recorded By Document 08/29/22 13:35 [id number] 08/29/22 13:40 DORA 08/29/22 13:35 Wound Center Nurse 2 -Time 13:35 -Correct Patient Yes -Correct Side, Site, Position Yes -Correct Procedure Yes -Procedure Performed Yes -Type of Procedure Debridement -Clinical Debridement Subcutaneous -Tissue Removed Subcutaneous -Post Debridement (cm) - Length 1.0 -Post Debridement (cm) - Width 1.1 -Post Debridement (cm) - Depth 0.2 -Total Square (Post) (cm) 1.10 -Area of Debridement (cm) - Length 1.0 -Area of Debridement (cm) - Width 1.1 -Total Square (Area) (cm) 1.10 -Tunneling No -Undermining/Tunneling No -Circular Undermining No -Wound/Ulcer Outcome Not Healed -Ulcer Cleansing Rinsed/ Irrigated with Saline -Foul Odor after Cleansing No -Bioengineered Tissue No -Bleeding Controlled with Pressure -Treatment Response Procedure Tolerated Well -Offloading Yes -Type of Offloading Surgical Shoe -Debridement - Subq, 1st 20sq cm Yes Pain Scale: 0-10 Numeric Is Patient Pain Free? Yes - Nurse 3 - General Ulcer D/C NN Start: 08/29/22 13:15 Freq: Status: Active Protocol: Activity Type Activity Date Activity User E-sign Co-sign Detail Recorded Client Recorded Date Recorded By Document 08/29/22 13:47 DL [id number] 08/29/22 13:47 DL 08/29/22 13:47 Wound Care Nurse 3 #9 Right Inferior Hallux -Ulcer Cleansing Rinsed/ Irrigated with Saline -Foul Odor after Cleansing No -Primary Dressing Applied Mepilex Border, Silvercel -Mepilex Border 1 -Silvercel 1 Treatment Response Procedure Tolerated Well Pain Scale: 0-10 Numeric Is Patient Pain Free? Yes WC - Visit Discharge Discharge Condition Stable Ambulatory Status Ambulatory Transportation Private Auto Accompanied by daughter Assessment/Plan Assessment/Plan (1) Type 2 diabetes mellitus with diabetic polyneuropathy: CODE(S): E11.42 - Type 2 diabetes mellitus with diabetic polyneuropathy (2) Non-pressure chronic ulcer of other part of right foot with fat layer exposed: CODE(S): L97.512 - Non-pressure chronic ulcer of other part of right foot with fat layer exposed PLAN: Plan Patient was evaluated at the wound healing center today.? There is a platau in wound healing, he would benefit from an advanced wound healing product such as Epifix to help expedite wound healing. Will apply to hisinsurance for approval to start Epifix. Wound care - Silvercel as the primary dressing covered with Rippey SAP (secondarydressing) daily after washing foot with soap and water. Compression - Single tubigrip Off-loading - Suman shoe has been re-adjusted at the foot and ankle clinic. He states it feels better with no pressure on his ulcer. Stressed the importance of off loading and not putting pressure on this portion of his foot. Vascular:? 12/19/21 - Right EULALIA - 1.15, Left EULALIA 1.06.? Right digital 0.74, Left digital 0.71, bilateral triphasic. Venous studies showed bilateral no DVT, Bilateral calf with primary veins with reflux, bilateral SPJ reflux. Wound culture obtained on 07/18/22 positive for Staphylococcus pseudintermediu, he completed Augmentin. Wound culture obtained on 05/18/22 which was positive for Staphylococcus pseudintermediu, Staphylococcus saprophyticus and Anaerobic cocci.? Continue Augmentin. Encouraged high protein diet that is low in carbohydrates and sodium. Follow up two weeks. Call or come in sooner if develop any questions or concerns. 08/29/22 1536 <Electronically signed by Bonny Glynn NP SENIOR BOILER OPERATOR-C> Cosigner Signature (if applicable): CC: ~ Signed [facility] Work Phone: 1(763) 581-468212-16-2022 Miscellaneous Notes* Telephone Encounter - Liseth Ortiz Ma - 08/04/2022 9:59 AM EST Pt PCP outside [facility]. Call to pt and notified him of Providers message. Pt states that he did talk tohim. FYI. Liseth Ortiz Ma * Telephone Encounter - Jessie Rodriguez APRN.CNP - 07/28/2022 1:43 PM EST In reviewing patient's chart I do not see that he has had any follow up done in regards to his actionable chest xray finding. I left a message on patient's voicemail for him to call back and advise. Jessie Rodriguez APRN.CNP [facility] Miscellaneous Notes* Telephone Encounter - Ashley Kelley - 04/08/2022 2:56 PM EDT Notified pt of results, daughter will call to get information on restrictions. Ashley Nish * Telephone Encounter - Ashley Kelley - 04/08/2022 9:18 AM EDT left message on machine to give call back, different number from pharmacy. [phone]. Ashley Kelley * Telephone Encounter - Ashley Kelley - 04/07/2022 5:48 PM EDT Unable to reach patient. Mailbox full/Mailbox not set up/ Number incorrect. Please try again later. Ashley Kelley * Telephone Encounter - Sigrid Monroe LPN - 04/06/2022 6:48 PM EDT Still unable to reach patient and sewing machines salesperson is spouse with same number.Sigrid Monroe LPN * Telephone Encounter - Sigrid Monroe LPN - 04/06/2022 7:59 AM EDT Unable to reach patient and rings a fast busy-try again later.Sigrid Monroe LPN * Telephone Encounter - Derek Whelan MD - 04/06/2022 7:45 AM EDT COVID test was positive. Stay home for [...] symptoms; ER if severe. [facility] encounterC[facility]22 NoteHNO ID: [id number] Author: Jessie Rodriguez APRN.CARPET Y[employer] WINDER OPERATOR Service: ? Author Type: Nurse Practitioner Type: Progress Notes Filed: 04/05/2022 3:51 PM Note Text: Subjective HPI Pedro Hillman is a 77 year old male who [...] advised. -Result will be faxed to Dr. Fajardo today, please call his office today to schedule follow up appointment. 3. Suspected COVID-19 virus infection - ICD9: V01.79, ICD10: Z20.822 - COVID WITH FLUA+B, ROUTINE Jessie Rodriguez APRN.[facility]08-17-2022 NoteHNO ID: [id number] Author: RT Jose Eduardo(R) Service: Nuclear Medicine Author Type: Technologist Type: Progress Notes Filed: 04/05/2022 2:03 PM Note Text: Radiology Service Progress Note PATIENT NAME: Pedro Hillman DATE OF SERVICE: April 05, 2022 TIME: [...] PERIPHERAL IV DATA: Not applicable SIGNED BY: Yuliana Olivera RT(R) April 05, 2022 1:55 [facility]08-17-2022 Influenza virus A and B RNA and SARS-CoV-2 (COVID-19) N gene panel BRYAN+probe (Resp)COVID 19 RESULT: SARS-CoV-2 (Agent of COVID-19) Detected by RT-PCR or equivalent method. anatoly [id number]_ZroouMiddle Peak [facility], [facility] (YASMEEN)_EUA This test was developed and its performance characteristics determined by [facility]'s [facility] [place]. This test has been authorized by FDA under an Emergency Use Authorization (EUA). This test has been validated in accordance with the FDA's Guidance Document Policy for DiagnosticsTesting in Laboratories Certified to Perform High Complexity Testing under CLIA prior to Emergency use Authorization for Coronavirus Disease 2019 during the Public Health Emergency issued on October 18, 2019. Test performed by [facility], [facility] [place], [address] [place] [address]. INFLUENZA A PCR: Negative for Influenza A by RT-PCR INFLUENZA B PCR: Negative for Influenza B by RT-PCRDunlap Memorial HospitalComment on above: Performed By: #### [id number] #### [facility] CLIA [id number] [address] [place] [address] [id number] Miscellaneous Notes* Telephone Encounter - Jessie Rodriguez APRN.[employer] YARN WINDER OPERATOR - 04/05/2022 2:58 PM EDT Radiology report faxed to patient's PCP Dr. Tonio Fajardo at [phone]. Confirmation of fax received. Patient was advised to call Dr. Fajardo today for a follow up appointment. Jessie Rodriguez APRN.CNP documented in this encounterC[facility]22 Instructions* Patient Instructions* Jessie Rodriguez APRN.CNP - 04/05/2022 2:25 PM [...] advised. -Result will be faxed to Dr. Fajardo today, please call his office today to schedule follow up appointment. 3. Suspected COVID-19 virus infection - ICD9: V01.79, ICD10: Z20.822 - COVID WITH FLUA+B, ROUTINE Jessie Rodriguez APRN.CNP documented in this encounterC[facility]08-[facility]22 History of Present illness Narrative* Jessie Rodriguez APRN.CNP - 04/05/2022 2:03 PM EDT Subjective HPI Pedro Hillman is a 77 year old male who [...] advised. -Result will be faxed to Dr. Fajardo today, please call his office today to schedule follow up appointment. 3. Suspected COVID-19 virus infection - ICD9: V01.79, ICD10: Z20.822 - COVID WITH FLUA+B, ROUTINE Jessie Rodriguez APRN.CARPET YARN WINDER OPERATOR documented in this encounterC[facility]08-[facility]22 History of Present illness Narrative* Yuliana Olivear, RT(R) - 04/05/2022 2:00 PM EDT Radiology Service Progress Note PATIENT NAME: Pedro Hillman DATE OF SERVICE: April 05, 2022 TIME: 1:55 PM PATIENT IDENTITY VERIFICATION COMPLETED USING TWO (2) IDENTIFIERS: Name and Date of confirmedby patient verbally. 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 Venous insufficiency chronic Ulcer of right foot with fat layer exposed resolved Malnutrition chronic 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 Venous insufficiency chronic Ulcer of right foot with fat layer exposed resolved [facility] Work Phone: Evaluation note* Diagnosis Onset Date Resolution Status Malnutrition chronic 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 Venous insufficiency chronic Ulcer of right foot with fat layer exposed resolved Malnutrition chronic 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 Venous insufficiency chronic Ulcer of right foot with fat layer exposed resolved Localized edema acute Ulcer of left lower extremity with fat layer exposed acute Malnutrition chronic 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 Venous insufficiency chronic Ulcer of right foot with fat layer exposed resolved [facility] Work Phone: Evaluation note* Diagnosis Onset Date Resolution Status Malnutrition chronic 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 Venous insufficiency chronic Ulcer of right foot with fat layer exposed resolved Malnutrition chronic 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 Venous insufficiency chronic Ulcer of right foot with fat layer exposed resolved Localized edema acute Ulcer of left lower extremity with fat layer exposed acute Malnutrition chronic 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 Venous insufficiency chronic Ulcer of right foot with fat layer exposed resolved Hyperlipidemia chronic Hypertension chronic 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 [facility] Work Phone: Evaluation note* Diagnosis Onset Date Resolution Status Malnutrition chronic 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 Venous insufficiency chronic Ulcer of right foot with fat layer exposed resolved Malnutrition chronic 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 Venous insufficiency chronic Ulcer of right foot with fat layer exposed resolved Localized edema acute Ulcer of left lower extremity with fat layer exposed acute Malnutrition chronic 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 Venous insufficiency chronic Ulcer of right foot with fat layer exposed resolved Hyperlipidemia chronic Hypertension chronic 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 Localized edema acute Malnutrition chronic 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 Venous insufficiency chronic Ulcer of right foot with fat layer exposed resolved [facility] Work Phone: Evaluation note* Diagnosis Burning with urination- Primary Dysuria Acute cough Suspected COVID-19 virus infection documented [facility] this encounter [facility] Diagnosis Onset Date Resolution Status Localized edema acute Ulcer of left lower extremity with fat layer exposed acute Malnutrition chronic 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 Venous insufficiency chronic Ulcer of right foot with fat layer exposed resolved Hyperlipidemia chronic Hypertension chronic 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 Localized edema acute Malnutrition chronic 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 Venous insufficiency chronic Ulcer of right foot with fat layer exposed resolved Localized edema acute Malnutrition chronic 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 Venous insufficiency chronic Ulcer of right foot with fat layer exposed resolved Localized edema acute Malnutrition chronic 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 Venous insufficiency chronic Ulcer of right foot with fat layer exposed resolved Lung mass acute Nicotine dependence, cigarettes, in remission acute [facility] Work Phone: Evaluation note* Diagnosis Onset Date Resolution Status Localized edema acute Ulcer of left lower extremity with fat layer exposed acute Malnutrition chronic 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 Venous insufficiency chronic Ulcer of right foot with fat layer exposed resolved Hyperlipidemia chronic Hypertension chronic 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 Localized edema acute Malnutrition chronic 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 Venous insufficiency chronic Ulcer of right foot with fat layer exposed resolved Localized edema acute Malnutrition chronic 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 Venous insufficiency chronic Ulcer of right foot with fat layer exposed resolved Localized edema acute Malnutrition chronic 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 Venous insufficiency chronic Ulcer of right foot with fat layer exposed resolved Lung mass acute Nicotine dependence, cigarettes, in remission acute Localized edema acute Malnutrition chronic 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 Venous insufficiency chronic Ulcer of right foot with fat layer exposed resolved [facility] Work Phone: Evaluation note* Diagnosis Onset Date Resolution Status Localized edema acute Malnutrition chronic 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 Venous insufficiency chronic Ulcer of right foot with fat layer exposed resolved Localized edema acute Malnutrition chronic 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 Venous insufficiency chronic Ulcer of right foot with fat layer exposed resolved Localized edema acute Malnutrition chronic 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 Venous insufficiency chronic Ulcer of right foot with fat layer exposed resolved Lung mass acute Nicotine dependence, cigarettes, 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 Localized edema acute Malnutrition chronic 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 Venous insufficiency chronic Ulcer of right foot with fat layer exposed resolved [facility] Work Phone: Evaluation note* Diagnosis Onset Date Resolution Status Localized edema acute Malnutrition chronic 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 Venous insufficiency chronic Ulcer of right foot with fat layer exposed resolved Localized edema acute Malnutrition chronic 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 Venous insufficiency chronic Ulcer of right foot with fat layer exposed resolved Localized edema acute Malnutrition chronic 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 Venous insufficiency chronic Ulcer of right foot with fat layer exposed resolved Lung mass acute Nicotine dependence, cigarettes, 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 Localized edema acute Lower extremity edema chroni c Malnutrition chronic 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 Venous insufficiency chronic Ulcer of right foot with fat layer exposed resolved 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 [facility] Work Phone: Evaluation note* Diagnosis Onset Date Resolution Status Localized edema acute Malnutrition chronic 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 Venous insufficiency chronic Ulcer of right foot with fat layer exposed resolved Localized edema acute Malnutrition chronic 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 Venous insufficiency chronic Ulcer of right foot with fat layer exposed resolved Localized edema acute Malnutrition chronic 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 Venous insufficiency chronic Ulcer of right foot with fat layer exposed resolved Lung mass acute Nicotine dependence, cigarettes, 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 Localized edema acute Lower extremity edema chroni c Malnutrition chronic 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 Venous insufficiency chronic Ulcer of right foot with fat layer exposed resolved 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 Lower extremity edema chroni c 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 Venous insufficiency chronic Ulcer of right foot with fat layer exposed resolved 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 [facility] Work Phone: Evaluation note* Diagnosis Onset Date Resolution Status Localized edema acute Malnutrition chronic 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 Venous insufficiency chronic Ulcer of right foot with fat layer exposed resolved Localized edema acute Malnutrition chronic 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 Venous insufficiency chronic Ulcer of right foot with fat layer exposed resolved Lung mass acute Nicotine dependence, cigarettes, 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 Localized edema acute Lower extremity edema chroni c Malnutrition chronic 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 Venous insufficiency chronic Ulcer of right foot with fat layer exposed resolved 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 Lower extremity edema chroni c 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 Venous insufficiency chronic Ulcer of right foot with fat layer exposed resolved 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 [facility] Work Phone: Evaluation note* Diagnosis Onset Date Resolution Status Localized edema acute Malnutrition chronic 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 Venous insufficiency chronic Ulcer of right foot with fat layer exposed resolved Lung mass acute Nicotine dependence, cigarettes, in remission acute 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 Localized edema acute Lower extremity edema chroni c Malnutrition chronic 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 Venous insufficiency chronic Ulcer of right foot with fat layer exposed resolved 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 Lower extremity edema chroni c 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 Venous insufficiency chronic Ulcer of right foot with fat layer exposed resolved 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 Type 2 diabetes mellitus with diabetic polyneuropathy chronic Lower extremity edema chroni c 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 Venous insufficiency chronic Ulcer of right foot with fat layer exposed resolved Hyperlipidemia chronic Hypertension chronic 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 [facility] Work Phone: Evaluation note* Diagnosis Onset Date Resolution Status 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 Localized edema acute Lower extremity edema chroni c Malnutrition chronic 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 Venous insufficiency chronic Ulcer of right foot with fat layer exposed resolved 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 Lower extremity edema chroni c 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 Venous insufficiency chronic Ulcer of right foot with fat layer exposed resolved 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 Type 2 diabetes mellitus with diabetic polyneuropathy chronic Lower extremity edema chroni c 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 Venous insufficiency chronic Ulcer of right foot with fat layer exposed resolved Hyperlipidemia chronic Hypertension chronic 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 [facility] Work Phone: Evaluation note* Diagnosis Onset Date Resolution Status 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 Lower extremity edema chroni c 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 Venous insufficiency chronic Ulcer of right foot with fat layer exposed resolved 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 Type 2 diabetes mellitus with diabetic polyneuropathy chronic Lower extremity edema chroni c 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 Venous insufficiency chronic Ulcer of right foot with fat layer exposed resolved Hyperlipidemia chronic Hypertension chronic 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 squamous cell carcin mruali of upper lobe of right lung chronic 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 [facility] Work Phone: Evaluation note* Diagnosis Onset Date Resolution Status 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 Type 2 diabetes mellitus with diabetic polyneuropathy chronic Lower extremity edema chroni c 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 Venous insufficiency chronic Ulcer of right foot with fat layer exposed resolved Hyperlipidemia chronic Hypertension chronic 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 Cough in adult patient acute History of malignant neoplasm of lung in adulthood acute Pain with urination acute 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 Urinary urgency acute 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 Shortness of breath chronic [facility] Work Phone: Evaluation note* Diagnosis Onset Date Resolution Status 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 Type 2 diabetes mellitus with diabetic polyneuropathy chronic Lower extremity edema chroni c 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 Venous insufficiency chronic Ulcer of right foot with fat layer exposed resolved Hyperlipidemia chronic Hypertension chronic 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 Cough in adult patient acute History of malignant neoplasm of lung in adulthood acute Pain with urination acute 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 Urinary urgency acute 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 Shortness of breath chronic 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 [facility] Work Phone: Evaluation note* Diagnosis Onset Date Resolution Status 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 Cough in adult patient acute History of malignant neoplasm of lung in adulthood acute Pain with urination acute 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 Urinary urgency acute 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 Shortness of breath chronic 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 Cough in adult patient acute History of malignant neoplasm of lung in adulthood acute Pain with urination acute 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 Urinary urgency acute 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 Shortness of breath chronic History of malignant neoplasm of lung in adulthood acute 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 Nicotine dependence, cigarettes, in remission acute COPD (chronic obstructive pulmonary disease) chronic 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 [facility] Work Phone: Evaluation note* Diagnosis Onset Date Resolution Status 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 Cough in adult patient acute History of malignant neoplasm of lung in adulthood acute Pain with urination acute 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 Urinary urgency acute 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 Shortness of breath chronic 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 Cough in adult patient acute History of malignant neoplasm of lung in adulthood acute Pain with urination acute 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 Urinary urgency acute 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 Shortness of breath chronic History of malignant neoplasm of lung in adulthood acute 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 Nicotine dependence, cigarettes, in remission acute COPD (chronic obstructive pulmonary disease) chronic 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 History of malignant neoplasm of lung in adulthood acute 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 [facility] Work Phone: Evaluation note* Diagnosis Onset Date Resolution Status Cough in adult patient acute History of malignant neoplasm of lung in adulthood acute Pain with urination acute 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 Urinary urgency acute 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 Shortness of breath chronic 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 Cough in adult patient acute History of malignant neoplasm of lung in adulthood acute Pain with urination acute 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 Urinary urgency acute 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 Shortness of breath chronic History of malignant neoplasm of lung in adulthood acute 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 Nicotine dependence, cigarettes, in remission acute COPD (chronic obstructive pulmonary disease) chronic 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 History of malignant neoplasm of lung in adulthood acute 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 [facility] Work Phone: Evaluation note* Diagnosis Onset Date Resolution Status Cough in adult patient acute History of malignant neoplasm of lung in adulthood acute Pain with urination acute 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 Urinary urgency acute 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 Shortness of breath chronic History of malignant neoplasm of lung in adulthood acute 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 Nicotine dependence, cigarettes, in remission acute COPD (chronic obstructive pulmonary disease) chronic 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 History of malignant neoplasm of lung in adulthood acute 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 History of malignant neoplasm of lung in adulthood acute 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 [facility] Work Phone: Evaluation note* Diagnosis Onset Date Resolution Status History of malignant neoplasm of lung in adulthood acute 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 Nicotine dependence, cigarettes, in remission acute COPD (chronic obstructive pulmonary disease) chronic 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 History of malignant neoplasm of lung in adulthood acute 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 History of malignant neoplasm of lung in adulthood acute 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 History of malignant neoplasm of lung in adulthood acute 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 [facility] Work Phone: Evaluation note* Diagnosis Onset Date Resolution Status History of malignant neoplasm of lung in adulthood acute 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 History of malignant neoplasm of lung in adulthood acute 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 History of malignant neoplasm of lung in adulthood acute 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 History of malignant neoplasm of lung in adulthood acute 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 [facility] Work Phone: Evaluation note* Diagnosis Onset Date Resolution Status History of malignant neoplasm of lung in adulthood acute 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 History of malignant neoplasm of lung in adulthood acute 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 History of malignant neoplasm of lung in adulthood acute 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 History of malignant neoplasm of lung in adulthood acute Peripheral vascular disease acute 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 Ulcer of right foot with fat layer exposed resolved [facility] Work Phone: Evaluation note* Diagnosis Onset Date Resolution Status History of malignant neoplasm of lung in adulthood acute 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 History of malignant neoplasm of lung in adulthood acute Peripheral vascular disease acute 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 Ulcer of right foot with fat layer exposed resolved Peripheral vascular disease acute 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 Type 2 diabetes mellitus with foot ulcer acute 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 Ulcer of left lower extremity with fat layer exposed chronic 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 Type 2 diabetes mellitus with foot ulcer acute 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 [facility] Work Phone: Evaluation note* Diagnosis Onset Date Resolution Status 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 History of malignant neoplasm of lung in adulthood acute Peripheral vascular disease acute 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 Ulcer of right foot with fat layer exposed resolved Peripheral vascular disease acute 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 Type 2 diabetes mellitus with foot ulcer acute 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 Ulcer of left lower extremity with fat layer exposed chronic 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 Type 2 diabetes mellitus with foot ulcer acute 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 Irregular heart rate acute COPD (chronic obstructive pulmonary disease) chronic 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 [facility] Work Phone: Evaluation note* Diagnosis Onset Date Resolution Status Irregular heart rate acute COPD (chronic obstructive pulmonary disease) chronic 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 Other persistent atrial fibrillation acute Hyperlipidemia chronic Hypertension chronic 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 [facility] Work Phone: Evaluation note* Diagnosis Onset Date Resolution Status Lung nodule acute 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 Plenty of fluids and rest today do not get dehydrated. Return if you are feeling a lot worse or too weak to get around her house. Follow-up with your doctor in the next several days to ensure you are improving. [facility] Work Phone: Hospital Discharge instructions Additional Instructions 1. Keep your postoperative dressing clean dry and intact 2. Continue strict glycemic control. 3. Partial weightbearing to heel with surgical shoe, use walker or crutches 4. Reach out to Dr. Suárez with any questions or concerns and follow-up in 1 week in clinic. [facility] Reason for referral (narrative)No reason for referral information [facility] Work [facility]: Chief Complaint and Reason for Visit Chief Complaint WOUND Reason for Visit Malnutrition Peripheral vascular occlusive disease Type 2 diabetes mellitus with diabetic polyneuropathy Venous insufficiency Ulcer of right foot with fat layer exposed Chief Complaint WOUND WOUND Reason for Visit Malnutrition Peripheral vascular occlusive disease Type 2 diabetes mellitus with diabetic polyneuropathy Venous insufficiency Ulcer of right foot with fat layer exposed Malnutrition Peripheral vascular occlusive disease Type 2 diabetes mellitus with diabetic polyneuropathy Venous insufficiency Ulcer of right foot with fat layer exposed Chief Complaint WOUND WOUND STRICTURE OF ARTERY WOUND Reason for Visit Malnutrition Peripheral vascular occlusive disease Type 2 diabetes mellitus with diabetic polyneuropathy Venous insufficiency Ulcer of right foot with fat layer exposed Malnutrition Peripheral vascular occlusive disease Type 2 diabetes mellitus with diabetic polyneuropathy Venous insufficiency Ulcer of right foot with fat layer exposed Localized edema Ulcer of left lower extremity with fat layer exposed Malnutrition Peripheral vascular occlusive disease Type 2 diabetes mellitus with diabetic polyneuropathy Venous insufficiency Ulcer of right foot with fat layer exposed Chief Complaint WOUND WOUND STRICTURE OF ARTERY WOUND 6 M FU (DJN PT) (MOVED FROM 06/20(PT RS FROM 09/22) Reason for Visit Malnutrition Peripheral vascular occlusive disease Type 2 diabetes mellitus with diabetic polyneuropathy Venous insufficiency Ulcer of right foot with fat layer exposed Malnutrition Peripheral vascular occlusive disease Type 2 diabetes mellitus with diabetic polyneuropathy Venous insufficiency Ulcer of right foot with fat layer exposed Localized edema Ulcer of left lower extremity with fat layer exposed Malnutrition Peripheral vascular occlusive disease Type 2 diabetes mellitus with diabetic polyneuropathy Venous insufficiency Ulcer of right foot with fat layer exposed Hyperlipidemia Hypertension Peripheral vascular occlusive disease Presence of aortocoronary bypass graft Chief Complaint WOUND WOUND STRICTURE OF ARTERY WOUND 6 M FU (DJN PT) (MOVED FROM 06/20(PT RS FROM 09/22) WOUND Reason for Visit Malnutrition Peripheral vascular occlusive disease Type 2 diabetes mellitus with diabetic polyneuropathy Venous insufficiency Ulcer of right foot with fat layer exposed Malnutrition Peripheral vascular occlusive disease Type 2 diabetes mellitus with diabetic polyneuropathy Venous insufficiency Ulcer of right foot with fat layer exposed Localized edema Ulcer of left lower extremity with fat layer exposed Malnutrition Peripheral vascular occlusive disease Type 2 diabetes mellitus with diabetic polyneuropathy Venous insufficiency Ulcer of right foot with fat layer exposed Hyperlipidemia Hypertension Peripheral vascular occlusive disease Presence of aortocoronary bypass graft Localized edema Malnutrition Peripheral vascular occlusive disease Type 2 diabetes mellitus with diabetic polyneuropathy Venous insufficiency Ulcer of right foot with fat layer exposed Chief Complaint STRICTURE OF ARTERY WOUND 6 M FU (DJN PT) (MOVED FROM 06/20(PT RS FROM 09/22) WOUND WOUND WOUND 4.5 CM RUL MASS ON CXR HYPOGLYCEMIA Lung Mass e orders Reason for Visit Localized edema Ulcer of left lower extremity with fat layer exposed Malnutrition Peripheral vascular occlusive disease Type 2 diabetes mellitus with diabetic polyneuropathy Venous insufficiency Ulcer of right foot with fat layer exposed Hyperlipidemia Hypertension Peripheral vascular occlusive disease Presence of aortocoronary bypass graft Localized edema Malnutrition Peripheral vascular occlusive disease Type 2 diabetes mellitus with diabetic polyneuropathy Venous insufficiency Ulcer of right foot with fat layer exposed Localized edema Malnutrition Peripheral vascular occlusive disease Type 2 diabetes mellitus with diabetic polyneuropathy Venous insufficiency Ulcer of right foot with fat layer exposed Localized edema Malnutrition Peripheral vascular occlusive disease Type 2 diabetes mellitus with diabetic polyneuropathy Venous insufficiency Ulcer of right foot with fat layer exposed Lung mass Nicotine dependence, cigarettes, in remission Chief Complaint WOUND 6 M FU (DJN PT) (MOVED FROM 06/20(PT RS FROM 09/22) WOUND WOUND WOUND 4.5 CM RUL MASS ON CXR HYPOGLYCEMIA Lung Mass e orders Reason for Visit Localized edema Ulcer of left lower extremity with fat layer exposed Malnutrition Peripheral vascular occlusive disease Type 2 diabetes mellitus with diabetic polyneuropathy Venous insufficiency Ulcer of right foot with fat layer exposed Hyperlipidemia Hypertension Peripheral vascular occlusive disease Presence of aortocoronary bypass graft Localized edema Malnutrition Peripheral vascular occlusive disease Type 2 diabetes mellitus with diabetic polyneuropathy Venous insufficiency Ulcer of right foot with fat layer exposed Localized edema Malnutrition Peripheral vascular occlusive disease Type 2 diabetes mellitus with diabetic polyneuropathy Venous insufficiency Ulcer of right foot with fat layer exposed Localized edema Malnutrition Peripheral vascular occlusive disease Type 2 diabetes mellitus with diabetic polyneuropathy Venous insufficiency Ulcer of right foot with fat layer exposed Lung mass Nicotine dependence, cigarettes, in remission Chief Complaint WOUND 6 M FU (DJN PT) (MOVED FROM 06/20(PT RS FROM 09/22) WOUND WOUND WOUND 4.5 CM RUL MASS ON CXR HYPOGLYCEMIA Lung Mass e orders WOUND LUNG MASS Reason for Visit Localized edema Ulcer of left lower extremity with fat layer exposed Malnutrition Peripheral vascular occlusive disease Type 2 diabetes mellitus with diabetic polyneuropathy Venous insufficiency Ulcer of right foot with fat layer exposed Hyperlipidemia Hypertension Peripheral vascular occlusive disease Presence of aortocoronary bypass graft Localized edema Malnutrition Peripheral vascular occlusive disease Type 2 diabetes mellitus with diabetic polyneuropathy Venous insufficiency Ulcer of right foot with fat layer exposed Localized edema Malnutrition Peripheral vascular occlusive disease Type 2 diabetes mellitus with diabetic polyneuropathy Venous insufficiency Ulcer of right foot with fat layer exposed Localized edema Malnutrition Peripheral vascular occlusive disease Type 2 diabetes mellitus with diabetic polyneuropathy Venous insufficiency Ulcer of right foot with fat layer exposed Lung mass Nicotine dependence, cigarettes, in remission Localized edema Malnutrition Peripheral vascular occlusive disease Type 2 diabetes mellitus with diabetic polyneuropathy Venous insufficiency Ulcer of right foot with fat layer exposed Chief Complaint WOUND WOUND WOUND 4.5 CM RUL MASS ON CXR HYPOGLYCEMIA Lung Mass e orders LUNG MASS 1 M FU NEW PT - [place] MALIGNANT NEOPLASM OF UPPER LOBE WOUND Reason for Visit Localized edema Malnutrition Peripheral vascular occlusive disease Type 2 diabetes mellitus with diabetic polyneuropathy Venous insufficiency Ulcer of right foot with fat layer exposed Localized edema Malnutrition Peripheral vascular occlusive disease Type 2 diabetes mellitus with diabetic polyneuropathy Venous insufficiency Ulcer of right foot with fat layer exposed Localized edema Malnutrition Peripheral vascular occlusive disease Type 2 diabetes mellitus with diabetic polyneuropathy Venous insufficiency Ulcer of right foot with fat layer exposed Lung mass Nicotine dependence, cigarettes, 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 Localized edema Malnutrition Peripheral vascular occlusive disease Type 2 diabetes mellitus with diabetic polyneuropathy Venous insufficiency Ulcer of right foot with fat layer exposed Chief Complaint WOUND WOUND WOUND 4.5 CM RUL MASS ON CXR HYPOGLYCEMIA Lung Mass e orders LUNG MASS 1 M FU NEW PT - [place] MALIGNANT NEOPLASM OF UPPER LOBE WOUND WOUND LUNG CANCER WOUND 2WKS NO LABS REVIEW PET/MRI Reason for Visit Localized edema Malnutrition Peripheral vascular occlusive disease Type 2 diabetes mellitus with diabetic polyneuropathy Venous insufficiency Ulcer of right foot with fat layer exposed Localized edema Malnutrition Peripheral vascular occlusive disease Type 2 diabetes mellitus with diabetic polyneuropathy Venous insufficiency Ulcer of right foot with fat layer exposed Localized edema Malnutrition Peripheral vascular occlusive disease Type 2 diabetes mellitus with diabetic polyneuropathy Venous insufficiency Ulcer of right foot with fat layer exposed Lung mass Nicotine dependence, cigarettes, 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 Localized edema Lower extremity edema Malnutrition Peripheral vascular occlusive disease Type 2 diabetes mellitus with diabetic polyneuropathy Venous insufficiency Ulcer of right foot with fat layer exposed 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 Chief Complaint WOUND WOUND WOUND 4.5 CM RUL MASS ON CXR HYPOGLYCEMIA Lung Mass e orders LUNG MASS 1 M FU NEW PT - [place] WOUND WOUND LUNG CANCER WOUND 2WKS NO LABS REVIEW PET/MRI WOUND WOUND consult - lung MALIGNANT NEOPLASM OF UPPER LOBE RIGHT LUNG CA RIGHT LUNG CA Reason for Visit Localized edema Malnutrition Peripheral vascular occlusive disease Type 2 diabetes mellitus with diabetic polyneuropathy Venous insufficiency Ulcer of right foot with fat layer exposed Localized edema Malnutrition Peripheral vascular occlusive disease Type 2 diabetes mellitus with diabetic polyneuropathy Venous insufficiency Ulcer of right foot with fat layer exposed Localized edema Malnutrition Peripheral vascular occlusive disease Type 2 diabetes mellitus with diabetic polyneuropathy Venous insufficiency Ulcer of right foot with fat layer exposed Lung mass Nicotine dependence, cigarettes, 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 Localized edema Lower extremity edema Malnutrition Peripheral vascular occlusive disease Type 2 diabetes mellitus with diabetic polyneuropathy Venous insufficiency Ulcer of right foot with fat layer exposed 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 Lower extremity edema Peripheral vascular occlusive disease Type 2 diabetes mellitus with diabetic polyneuropathy Venous insufficiency Ulcer of right foot with fat layer exposed 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 Chief Complaint WOUND WOUND 4.5 CM RUL MASS ON CXR HYPOGLYCEMIA Lung Mass e orders LUNG MASS LUNG MASS 1 M FU NEW PT - [facility] WOUND WOUND LUNG CANCER WOUND 2WKS NO LABS REVIEW PET/MRI WOUND consult - lung RIGHT LUNG CA RIGHT LUNG CA WOUND WOUND OTV MALIGNANT NEOPLASM OF UPPER LOBE Reason for Visit Localized edema Malnutrition Peripheral vascular occlusive disease Type 2 diabetes mellitus with diabetic polyneuropathy Venous insufficiency Ulcer of right foot with fat layer exposed Localized edema Malnutrition Peripheral vascular occlusive disease Type 2 diabetes mellitus with diabetic polyneuropathy Venous insufficiency Ulcer of right foot with fat layer exposed Lung mass Nicotine dependence, cigarettes, 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 Localized edema Lower extremity edema Malnutrition Peripheral vascular occlusive disease Type 2 diabetes mellitus with diabetic polyneuropathy Venous insufficiency Ulcer of right foot with fat layer exposed 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 Lower extremity edema Peripheral vascular occlusive disease Type 2 diabetes mellitus with diabetic polyneuropathy Venous insufficiency Ulcer of right foot with fat layer exposed 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 Chief Complaint WOUND 4.5 CM RUL MASS ON CXR HYPOGLYCEMIA Lung Mass e orders LUNG MASS LUNG MASS 1 M FU NEW PT - [place] WOUND WOUND LUNG CANCER WOUND 2WKS NO LABS REVIEW PET/MRI WOUND consult - lung RIGHT LUNG CA RIGHT LUNG CA WOUND WOUND OTV OTV WOUND OTV OTV Amb Documentation MALIGNANT NEOPLASM OF UPPER LOBE 4WKS NO LABS WOUND 6 M FU Reason for Visit Localized edema Malnutrition Peripheral vascular occlusive disease Type 2 diabetes mellitus with diabetic polyneuropathy Venous insufficiency Ulcer of right foot with fat layer exposed Lung mass Nicotine dependence, cigarettes, 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 Localized edema Lower extremity edema Malnutrition Peripheral vascular occlusive disease Type 2 diabetes mellitus with diabetic polyneuropathy Venous insufficiency Ulcer of right foot with fat layer exposed 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 Lower extremity edema Peripheral vascular occlusive disease Type 2 diabetes mellitus with diabetic polyneuropathy Venous insufficiency Ulcer of right foot with fat layer exposed 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 mellitus with diabetic polyneuropathy Lower extremity edema Non-pressure chronic ulcer of other part of right foot with fat layer exposed Peripheral vascular occlusive disease Venous insufficiency Ulcer of right foot with fat layer exposed Hyperlipidemia Hypertension Peripheral vascular occlusive disease Presence of aortocoronary bypass graft Chief Complaint LUNG MASS LUNG MASS 1 M FU NEW PT - [place] WOUND WOUND LUNG CANCER WOUND 2WKS NO LABS REVIEW PET/MRI WOUND consult - lung RIGHT LUNG CA RIGHT LUNG CA WOUND WOUND OTV OTV WOUND OTV OTV Amb Documentation MALIGNANT NEOPLASM OF UPPER LOBE 4WKS NO LABS WOUND WOUND 6 M FU WOUND 1 month f/u post RT WOUND WOUND Reason for Visit Primary squamous swati l carcinoma of upper lobe of right lung 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 Localized edema Lower extremity edema Malnutrition Peripheral vascular occlusive disease Type 2 diabetes mellitus with diabetic polyneuropathy Venous insufficiency Ulcer of right foot with fat layer exposed 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 Lower extremity edema Peripheral vascular occlusive disease Type 2 diabetes mellitus with diabetic polyneuropathy Venous insufficiency Ulcer of right foot with fat layer exposed 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 mellitus with diabetic polyneuropathy Lower extremity edema Non-pressure chronic ulcer of other part of right foot with fat layer exposed Peripheral vascular occlusive disease Venous insufficiency Ulcer of right foot with fat layer exposed Hyperlipidemia Hypertension Peripheral vascular occlusive disease Presence of aortocoronary bypass graft 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 Chief Complaint WOUND 2WKS NO LABS REVIEW PET/MRI WOUND consult - lung RIGHT LUNG CA RIGHT LUNG CA WOUND WOUND OTV OTV WOUND OTV OTV Amb Documentation MALIGNANT NEOPLASM OF UPPER LOBE 4WKS NO LABS WOUND WOUND 6 M FU WOUND 1 month f/u post RT WOUND WOUND WOUND WOUND Reason for Visit Primary squamous swati l carcinoma of upper lobe of right lung 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 Lower extremity edema Peripheral vascular occlusive disease Type 2 diabetes mellitus with diabetic polyneuropathy Venous insufficiency Ulcer of right foot with fat layer exposed 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 mellitus with diabetic polyneuropathy Lower extremity edema Non-pressure chronic ulcer of other part of right foot with fat layer exposed Peripheral vascular occlusive disease Venous insufficiency Ulcer of right foot with fat layer exposed Hyperlipidemia Hypertension Peripheral vascular occlusive disease Presence of aortocoronary bypass graft 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 Chief Complaint OTV WOUND OTV OTV Amb Documentation 4WKS NO LABS WOUND WOUND 6 M FU WOUND 1 month f/u post RT WOUND WOUND WOUND WOUND WOUND WOUND COUGH, SOB, URINARY PAIN AND FREQUENCY WOUND WOUND LUNG CANCER WOUND 3 MO - LABS - REVIEW CT MALIGNANT NEOPLASM OF UPPER LOBE Reason for Visit Primary squamous swati l carcinoma of upper lobe of right lung 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 mellitus with diabetic polyneuropathy Lower extremity edema Non-pressure chronic ulcer of other part of right foot with fat layer exposed Peripheral vascular occlusive disease Venous insufficiency Ulcer of right foot with fat layer exposed Hyperlipidemia Hypertension Peripheral vascular occlusive disease Presence of aortocoronary bypass graft 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 Cough in adult patient History of malignant neoplasm of lung in adulthood Pain with urination Type 2 diabetes mellitus with diabetic polyneuropathy Urinary urgency Non-pressure chronic ulcer of other part of right foot with fat layer exposed Shortness of breath Chief Complaint OTV WOUND OTV OTV Amb Documentation 4WKS NO LABS WOUND WOUND 6 M FU WOUND 1 month f/u post RT WOUND WOUND WOUND WOUND WOUND WOUND COUGH, SOB, URINARY PAIN AND FREQUENCY WOUND WOUND LUNG CANCER WOUND 3 MO - LABS - REVIEW CT MALIGNANT NEOPLASM OF UPPER LOBE 2mo f/u lung Reason for Visit Primary squamous swati l carcinoma of upper lobe of right lung 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 mellitus with diabetic polyneuropathy Lower extremity edema Non-pressure chronic ulcer of other part of right foot with fat layer exposed Peripheral vascular occlusive disease Venous insufficiency Ulcer of right foot with fat layer exposed Hyperlipidemia Hypertension Peripheral vascular occlusive disease Presence of aortocoronary bypass graft 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 Cough in adult patient History of malignant neoplasm of lung in adulthood Pain with urination Type 2 diabetes mellitus with diabetic polyneuropathy Urinary urgency Non-pressure chronic ulcer of other part of right foot with fat layer exposed Shortness of breath 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 Chief Complaint WOUND WOUND WOUND WOUND COUGH, SOB, URINARY PAIN AND FREQUENCY WOUND WOUND LUNG CANCER WOUND 3 MO - LABS - REVIEW CT MALIGNANT NEOPLASM OF UPPER LOBE 2mo f/u lung WOUND WOUND WOUND WOUND WOUND WOUND WOUND WOUND WOUND WOUND 6 M FU Reason for Visit Type 2 diabetes vincent itus with diabetic polyneuropathy Non-pressure chronic ulcer of other part of right foot with fat layer exposed Cough in adult patient History of malignant neoplasm of lung in adulthood Pain with urination Type 2 diabetes mellitus with diabetic polyneuropathy Urinary urgency Non-pressure chronic ulcer of other part of right foot with fat layer exposed Shortness of breath 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 Cough in adult patient History of malignant neoplasm of lung in adulthood Pain with urination Type 2 diabetes mellitus with diabetic polyneuropathy Urinary urgency Non-pressure chronic ulcer of other part of right foot with fat layer exposed Shortness of breath History of malignant neoplasm of lung in adulthood 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, cigarettes, in remission COPD (chronic obstructive pulmonary disease) 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 Chief Complaint WOUND WOUND WOUND COUGH, SOB, URINARY PAIN AND FREQUENCY WOUND WOUND LUNG CANCER WOUND 3 MO - LABS - REVIEW CT MALIGNANT NEOPLASM OF UPPER LOBE 2mo f/u lung WOUND WOUND WOUND WOUND WOUND WOUND WOUND WOUND WOUND WOUND 6 M FU WOUND WOUND WOUND fever Reason for Visit Type 2 diabetes vincent itus with diabetic polyneuropathy Non-pressure chronic ulcer of other part of right foot with fat layer exposed Cough in adult patient History of malignant neoplasm of lung in adulthood Pain with urination Type 2 diabetes mellitus with diabetic polyneuropathy Urinary urgency Non-pressure chronic ulcer of other part of right foot with fat layer exposed Shortness of breath 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 Cough in adult patient History of malignant neoplasm of lung in adulthood Pain with urination Type 2 diabetes mellitus with diabetic polyneuropathy Urinary urgency Non-pressure chronic ulcer of other part of right foot with fat layer exposed Shortness of breath History of malignant neoplasm of lung in adulthood 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, cigarettes, in remission COPD (chronic obstructive pulmonary disease) 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 History of malignant neoplasm of lung in adulthood 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 Chief Complaint WOUND COUGH, SOB, URINARY PAIN AND FREQUENCY WOUND WOUND LUNG CANCER WOUND 3 MO - LABS - REVIEW CT MALIGNANT NEOPLASM OF UPPER LOBE 2mo f/u lung WOUND WOUND WOUND WOUND WOUND WOUND WOUND WOUND WOUND WOUND 6 M FU WOUND WOUND fever WOUND WOUND Reason for Visit Cough in adult patie nt History of malignant neoplasm of lung in adulthood Pain with urination Type 2 diabetes mellitus with diabetic polyneuropathy Urinary urgency Non-pressure chronic ulcer of other part of right foot with fat layer exposed Shortness of breath 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 Cough in adult patient History of malignant neoplasm of lung in adulthood Pain with urination Type 2 diabetes mellitus with diabetic polyneuropathy Urinary urgency Non-pressure chronic ulcer of other part of right foot with fat layer exposed Shortness of breath History of malignant neoplasm of lung in adulthood 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, cigarettes, in remission COPD (chronic obstructive pulmonary disease) 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 History of malignant neoplasm of lung in adulthood 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 Chief Complaint WOUND WOUND WOUND WOUND WOUND WOUND WOUND WOUND WOUND 6 M FU WOUND WOUND fever WOUND WOUND WOUND WOUND WOUND Reason for Visit Cough in adult patie nt History of malignant neoplasm of lung in adulthood Pain with urination Type 2 diabetes mellitus with diabetic polyneuropathy Urinary urgency Non-pressure chronic ulcer of other part of right foot with fat layer exposed Shortness of breath History of malignant neoplasm of lung in adulthood 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, cigarettes, in remission COPD (chronic obstructive pulmonary disease) 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 History of malignant neoplasm of lung in adulthood 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 History of malignant neoplasm of lung in adulthood 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 Chief Complaint WOUND WOUND WOUND WOUND WOUND 6 M FU WOUND WOUND fever WOUND WOUND WOUND WOUND WOUND WOUND COUGH, KNOWN R LUNG CANCER WOUND WOUND Reason for Visit History of malignant neoplasm of lung in adulthood 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, cigarettes, in remission COPD (chronic obstructive pulmonary disease) 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 History of malignant neoplasm of lung in adulthood 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 History of malignant neoplasm of lung in adulthood 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 History of malignant neoplasm of lung in adulthood 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 Chief Complaint WOUND WOUND fever WOUND WOUND WOUND WOUND WOUND WOUND COUGH, KNOWN R LUNG CANCER WOUND WOUND WOUND WOUND WOUND MONITOR LUNG CA Reason for Visit History of malignant neoplasm of lung in adulthood 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 History of malignant neoplasm of lung in adulthood 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 History of malignant neoplasm of lung in adulthood 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 History of malignant neoplasm of lung in adulthood 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 Chief Complaint WOUND fever WOUND WOUND WOUND WOUND WOUND WOUND COUGH, KNOWN R LUNG CANCER WOUND WOUND WOUND WOUND MONITOR LUNG CA 6MO LABS REVIEW CT MALIGNANT NEOPLASM OF UPPER LOBE WOUND Reason for Visit History of malignant neoplasm of lung in adulthood 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 History of malignant neoplasm of lung in adulthood 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 History of malignant neoplasm of lung in adulthood 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 History of malignant neoplasm of lung in adulthood Peripheral vascular disease 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 Ulcer of right foot with fat layer exposed Chief Complaint WOUND COUGH, KNOWN R LUNG CANCER WOUND WOUND WOUND WOUND MONITOR LUNG CA 6MO LABS REVIEW CT MALIGNANT NEOPLASM OF UPPER LOBE WOUND WOUND Reason for Visit History of malignant neoplasm of lung in adulthood 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 History of malignant neoplasm of lung in adulthood Peripheral vascular disease 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 Ulcer of right foot with fat layer exposed Peripheral vascular disease Type 2 diabetes mellitus with diabetic polyneuropathy Type 2 diabetes mellitus with foot ulcer Non-pressure chronic ulcer of other part of right foot with fat layer exposed Ulcer of left lower extremity with fat layer exposed 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 Type 2 diabetes mellitus with foot ulcer Non-pressure chronic ulcer of other part of right foot with fat layer exposed Chief Complaint WOUND WOUND WOUND WOUND MONITOR LUNG CA 6MO LABS REVIEW CT MALIGNANT NEOPLASM OF UPPER LOBE WOUND WOUND Reason for Visit History of malignant neoplasm of lung in adulthood 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 History of malignant neoplasm of lung in adulthood Peripheral vascular disease 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 Ulcer of right foot with fat layer exposed Peripheral vascular disease Type 2 diabetes mellitus with diabetic polyneuropathy Type 2 diabetes mellitus with foot ulcer Non-pressure chronic ulcer of other part of right foot with fat layer exposed Ulcer of left lower extremity with fat layer exposed 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 Type 2 diabetes mellitus with foot ulcer Non-pressure chronic ulcer of other part of right foot with fat layer exposed Chief Complaint MONITOR LUNG CA 6MO LABS REVIEW CT MALIGNANT NEOPLASM OF UPPER LOBE WOUND WOUND 6 M FU Chronic obstructive pulmonary disease, unspecified EKG PER MMM Reason for Visit Primary squamous swati l carcinoma of upper lobe of right lung History of malignant neoplasm of lung in adulthood Peripheral vascular disease 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 Ulcer of right foot with fat layer exposed Peripheral vascular disease Type 2 diabetes mellitus with diabetic polyneuropathy Type 2 diabetes mellitus with foot ulcer Non-pressure chronic ulcer of other part of right foot with fat layer exposed Ulcer of left lower extremity with fat layer exposed 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 Type 2 diabetes mellitus with foot ulcer Non-pressure chronic ulcer of other part of right foot with fat layer exposed Irregular heart rate COPD (chronic obstructive pulmonary disease) 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 Chief Complaint 6 M FU Chronic obstructive pulmonary disease, unspecified EKG PER MMM [place]AM[place], [place] A-FIB/FLUTTER 1 Y FU MALIGNANT NEOPLASM OF RIGHT LUNG Reason for Visit Irregular heart rate COPD (chronic obstructive pulmonary disease) 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 Other persistent atrial fibrillation Hyperlipidemia Hypertension Peripheral vascular occlusive disease Presence of aortocoronary bypass graft Chief Complaint MALIGNANT NEOPLASM O F RIGHT LUNG 6MO LABS REVIEW CT 3 M FU MALIGNANT NEOPLASM OF UPPER LOBE 3WKS LABS PRIOR REVIEW PET Reason for Visit Lung nodule Elevated serum protein level 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, cigarettes, in remission COPD (chronic obstructive pulmonary disease) 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 Lung nodule Elevated serum protein level 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 Chief Complaint Admit Date 1 Y FU September 25, 2024 1 2:50pm EORDERS September 25, 2024 1 :30pm J43.2 - Centrilobular emphysema October 16, 2024 12:27pm J43.2 - Centrilobular emphysema October 17, 2024 10:04am 6 M FU October 23, 2024 2:10 pm Reason for Visit Admit Date HAMILTON (dyspnea on exertion) September 25, 2024 12:50pm Other persistent atrial fibrillation Feb ruary 2024 12:50pm Hyperlipidemia September 25, 2024 1 2:50pm Hypertension September 25, 2024 1 2:50pm Peripheral vascular occlusive disease Fe bruary 2024 12:50pm Presence of aortocoronary bypass graft F ebruary 2024 12:50pm Hypoxia October 23, 2024 2:10 pm COPD (chronic obstructive pulmonary dise ase) October 23, 2024 2:10pm Primary squamous cell carcin murali of upper lobe of right lung October 23, 2024 2:10pm Chief Complaint Admit Date 1 Y FU September 25, 2024 1 2:50pm EORDERS September 25, 2024 1 :30pm J43.2 - Centrilobular emphysema October 16, 2024 12:27pm J43.2 - Centrilobular emphysema October 17, 2024 10:04am 6 M FU October 23, 2024 2:10 pm LUNG CANCER *IV ONLY* October 30, 2024 1 2:35pm Chief Complaint Admit Date 1 Y FU September 25, 2024 1 2:50pm EORDERS September 25, 2024 1 :30pm J43.2 - Centrilobular emphysema October 16, 2024 12:27pm J43.2 - Centrilobular emphysema October 17, 2024 10:04am 6 M FU October 23, 2024 2:10 pm LUNG CANCER *IV ONLY* October 30, 2024 1 2:35pm 6MO LABS REVIEW [facility] November 06, 2024 1:2 4pm MALIGNANT NEOPLASM OF UPPER LOBE October 192024 1:45pm Reason for Visit Admit Date H[place] (dyspnea on exertion) September 25, 2024 12:50pm Other persistent atrial fibrillation Feb ruary 2024 12:50pm Hyperlipidemia September 25, 2024 1 2:50pm Hypertension September 25, 2024 1 2:50pm Peripheral vascular occlusive disease Fe bruary 2024 12:50pm Presence of aortocoronary bypass graft F ebary 2024 12:50pm Hypoxia October 23, 2024 2:10 pm COPD (chronic obstructive pulmonary dise ase) October 23, 2024 2:10pm Primary squamous cell carcin murali of upper lobe of right lung October 23, 2024 2:10pm Primary squamous cell carcin murali of upper lobe of right lung November 06, 2024 1:24pm Chief Complaint Admit Date 6MO LABS REVIEW CT November 06, 2024 1:2 4pm MALIGNANT NEOPLASM OF UPPER LOBE October 192024 1:45pm AE CHF, ATRIAL FLUTTER; WITH RVR AND HOMA VATED March 04, 2025 7:57pm Reason for Visit Admit Date 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 November 06, 2024 1:24pm Atrial flutter with rapid ventricular re sponse March 04, 2025 7:57pm Chronic anticoagulation March 04, 2025 7:57pm Elevated troponin March 04, 2025 7:57 pm Hyperkalemia March 04, 2025 7:57 pm Overweight (BMI 25.0-29.9) March 04 7:57pm Pleural effusion on right March 04 7:57pm Atherosclerosis of coronary artery of [place] heart without angina pectoris March 04, 2025 7:57pm CHF exacerbation March 04, 2025 7:57 pm Advance Directives Advance Directive Response Recorded Date/ Time Advance Directives No February 17 11:03am Living Will No February 17, 2014 1 1:03am Power of Delinquent Tax Collection Assistant No February 17, 2014 11:03am Advance Directive Response Recorded Date/ Time Name of Medical Power of Delinquent Tax Collection Assistant SON April 14, 2022 8:29am Advance Directives No February 17 4 11:03am Living Will No April 14 2 8:29am Power of Delinquent Tax Collection Assistant Yes April 14 022 8:29am Advance Directive Response Recorded Date/ Time Name of Medical Power of Delinquent Tax Collection Assistant SON April 14, 2022 7:29am Advance Directives No February 17 4 10:03am Living Will No April 14 2 7:29am Power of Delinquent Tax Collection Assistant Yes April 14, 022 7:29am Advance Directive Response Recorded Date/ Time Advance Directives No February 17 4 10:03am Living Will No April 14 2 7:29am Power of Delinquent Tax Collection Assistant Yes April 14 7:29am Advance Directive Response Recorded Date/ Time Advance Directives No February 17 4 11:03am Living Will No April 14 8:29am Power of Delinquent Tax Collection Assistant Yes April 14 8:29am Advance Directive Response Recorded Date/ Time Name of Medical Power of Delinquent Tax Collection Assistant Ed Yumiko December 30, 2022 10:39pm Advance Directives No February 17 11:03am Living Will Yes December 30, 2022 1 0:39pm Power of Delinquent Tax Collection Assistant Yes December 30, 2022 10:39pm Advance Directive Response Recorded Date/ Time Advance Directives No February 17 11:03am Living Will Yes December 30, 2022 1 0:39pm Power of Delinquent Tax Collection Assistant Yes December 30, 2022 10:39pm Advance Directive Response Recorded Date/ Time Advance Directives No February 17 10:03am Living Will Yes December 30, 2022 9 :39pm Power of Delinquent Tax Collection Assistant Yes December 30, 2022 9:39pm Advance Directive Response Recorded Date/ Time Living Will Yes December 30, 2022 1 0:39pm Power of Delinquent Tax Collection Assistant Yes December 30, 2022 10:39pm Advance Directives No February 17 11:03am Advance Directive Response Recorded Date/ Time Living Will Yes December 30, 2022 1 0:39pm Do you have a Healthcare Power of Delinquent Tax Collection Assistant? Yes December 30, 2022 10:39pm Living Will No April 14 8:29am Do you have a Healthcare Power of Delinquent Tax Collection Assistant? Yes April 14, 2022 8:29am Advance Directives No February 17 11:03am Advance Directive Response Recorded Date/ Time Living Will No April 14 8:29am Do you have a Healthcare Pow er of Delinquent Tax Collection Assistant? Yes April 14, 2022 8:29am Do you have a Healthcare Pow er of Delinquent Tax Collection Assistant? Yes March 04, 2025 2:58pm Name of Medical Power of Delinquent Tax Collection Assistant Ed Daja olmstead March 04, 2025 2:58pm Advance Directives No February 17 4 11:03am Health Concerns Infection Onset Date Last Indicated Resolved Time COVID-19 Rule-Out 04/05/2022 04/05/2022 Infection Onset Date Last Indicated Resolved Time COVID-19 Rule-Out 04/05/2022 04/05/2022 04/06/2022 12:57 AM EDT COVID-19 Confirmed 04/05/2022 04/05/2022 Summary Purpose Family History No Family History Records Found Additional Source Comments Goals (unrecognized section and content) Goals may be documented in a n alternate sectionGoals may be documented in an alternate sectionGoals may be documented in an alternate sectionGoals may be documented in an alternate sectionGoals may be documented in an alternate sectionGoals may be documented in an alternate sectionGoals may be documented in an alternate sectionGoals may be documented in an alternate sectionGoals may be documented in an alternate sectionGoals may be documented in an alternate sectionGoals may be documented in an alternate sectionGoals may be documented in an alternate sectionGoals may be documented in an alternate sectionGoals may be documented in an alternate sectionGoals may be documented in an alternate sectionGoals may be documented in an alternate sectionGoals may be documented in an alternate sectionGoals may be documented in an alternate sectionGoals may be documented in an alternate sectionGoals may be documented in an alternate sectionGoals may be documented in an alternate sectionGoals may be documented in an alternate sectionGoals may be documented in an alternate sectionGoals may be documented in an alternate sectionGoals may be documented in an alternate sectionGoals may be documented in an alternate sectionGoals may be documented in an alternate sectionGoals may be documented in an alternate sectionGoals may be documented in an alternate sectionGoals may be documented in an alternate sectionGoals may be documented in an alternate section Source Comments (unrecognize d section and content) In the event this informatio n is protected by the Federal Confidentiality of Alcohol and Drug Abuse Patient Records regulations: The Federal rules restrict any use of the information to criminally investigate or prosecute any alcohol or drug abuse patient.[facility] the event this information is protected by the Federal Confidentiality of Alcohol and Drug Abuse Patient Records regulations: The Federal rules restrict any use of the information to criminally investigate or prosecute any alcohol or drug abuse patient.[facility] the event this information is protected by the Federal Confidentiality of Alcohol and Drug Abuse Patient Records regulations: The Federal rules restrict any use of the information to criminally investigate or prosecute any alcohol or drug abuse patient.[facility] the event this information is protected by the Federal Confidentiality of Alcohol and Drug Abuse Patient Records regulations: The Federal rules restrict any use of the information to criminally investigate or prosecute any alcohol or drug abuse patient.[facility] the event this information is protected by the Federal Confidentiality of Alcohol and Drug Abuse Patient Records regulations: The Federal rules restrict any use of the information to criminally investigate or prosecute any alcohol or drug abuse patient.[facility] Reason for Visit (unrecogniz ed section and content) Reason Comments Results Reason Comments Urinary Problem burning with urinati on x 1 week nasal congestion and drainage x 1 week Reason Comments Results COVID+ Reason Comments Patient Update Care Teams (unrecognized sec tion and content) Infusion Therapy Nurse Relationship Specialty Start Date End Date Tonio Fajardo DO [address] [place], [place] [id number] PCP - General Family Practice 04/05/22 Infusion Therapy Nurse Relationship Specialty Start Date End Date Tonio Fajardo DO [address] [place], [place] [address] PCP - General Family Practice 04/05/22 Infusion Therapy Nurse Relationship Specialty Start Date End Date Tonio Fajardo DO [address] [place], [place] [id number] PCP - General Family Practice 04/05/22 Infusion Therapy Nurse Relationship Specialty Start Date End Date Tonio Fajardo DO [address] [place], [place] [id number] PCP - General Family Medicine 04/05/22 Team Status: Active Member Role Status Dates Dr. Tonio Fajardo DO Family Provider Active Dr. Tonio Fajardo DO Primary Care Provider Active Team Status: Inactive Member Role Status Dates Dr. Tonio Fajardo DO Primary Care Provider, Referrin g Provider Active Iker Rodriguez SENIOR BOILER OPERATOR, SENIOR BOILER OPERATOR-C Attending Provider Active Team Status: Inactive Member Role Status Dates Dr. Tonio Fajardo DO Primary Care Provider, Referrin g Provider Active Dr. Russ Zamora MD Attending Provider Active Team Status: Inactive Member Role Status Dates Dr. Tonio Fajardo DO Primary Care Provider, Referrin g Provider Active Dr. Srini Choi DO Attending Provider Active Team Status: Active Member Role Status Dates Dr. Tonio Fajardo DO Primary Care Provider Active Bonny Glynn SENIOR BOILER OPERATOR, SENIOR BOILER OPERATOR-C Attending Pro vider, Referring Provider, Other Provider Active Team Status: Active Member Role Status Dates Dr. Tonio Fajardo , DO Primary Care Provider Active Dr. Srini Choi , DO Attending Provider, Referring P rovider Active Team Status: Active Member Role Status Dates Dr. Tonio Fajardo , DO Primary Care Provider Active Dr. Srini Choi , DO Referring Provider, Other Provi jose armando Active Dr. Mateo Shahid MD Attending Provider Active Team Status: Inactive Member Role Status Dates Dr. Tonio Fajardo , DO Primary Care Provider Active Dr. Tevin Allen MD Active Dr. Srini Choi , DO Attending Provider, Referring P rovider Active Team Status: Inactive Member Role Status Dates Dr. Tonio Fajardo , DO Primary Care Provider Active Dr. Srini Choi , DO Attending Provider, Referring P rovider Active Team Status: Active Member Role Status Dates Dr. Tonio Fajardo DO Primary Care Provider Active Dr. Srini Choi , DO Attending Provider Active Team Status: Active Member Role Status Dates Dr. Tonio Fajardo , DO Primary Care Provider Active Dr. Russ Zamora MD Attending Provider, Referring Pro vider Active Dr. Srini Choi , DO Other Provider Active Team Status: Inactive Member Role Status Dates Dr. Tonio Fajardo , DO Primary Care Provider Active Bonny Glynn SENIOR BOILER OPERATOR, SENIOR BOILER OPERATOR-C Attending Provider Active Team Status: Active Member Role Status Dates Dr. Tonio Fajardo , DO Primary Care Provider Active Dr. Russ Zamora MD Attending Provider Active Team Status: Inactive Member Role Status Dates Dr. Tonio Fajardo DO Primary Care Provider Active Dr. Russ Zamora MD Attending Provider Active Team Status: Active Member Role Status Dates Dr. Tonio Fajardo , DO Primary Care Provider Active Bonny Pintoell SENIOR BOILER OPERATOR, SENIOR BOILER OPERATOR-C Attending Provider Active Team Status: Inactive Member Role Status Dates Dr. Tonio Fajardo , DO Primary Care Provider Active Bonny Glynn SENIOR BOILER OPERATOR, SENIOR BOILER OPERATOR-C Attending Provider, Referri ng Provider Active Team Status: Inactive Member Role Status Dates Dr. Tonio Fajardo , DO Primary Care Provider, Referrin g Provider Active Dr. Tyrell Uriarte , DO Attending Provider Active Team Status: Active Member Role Status Dates Dr. Tonio Fajardo , DO Primary Care Provider Active Bonnyparris Pintoell SENIOR BOILER OPERATOR, SENIOR BOILER OPERATOR-C Attending Provider, Other P rovider Active Team Status: Inactive Member Role Status Dates Dr. Tonio Fajardo , DO Primary Care Provider Active Dr. Chris Ochoa MD Emergency Provider Active Team Status: Inactive Member Role Status Dates Dr. Tonio Fajardo , DO Primary Care Provider Active Dr. Chris Ochoa MD Attending Provider, Emergency Pro vider Active Team Status: Inactive Member Role Status Dates Dr. Tonio Fajardo , DO Primary Care Prov ider, Attending Provider, Referring Provider Active Team Status: Inactive Member Role Status Dates Dr. Tonio Fajardo , DO Primary Care Provider Active Dr. Russ Zamora MD Attending Provider, Referring Pro vider Active Team Status: Active Member Role Status Dates Dr. Tonio Fajardo , DO Primary Care Provider, Referrin g Provider Active Bonny Glynn SENIOR BOILER OPERATOR, SENIOR BOILER OPERATOR-C Attending Provider Active Team Status: Inactive Member Role Status Dates Dr. Tonio Fajardo , DO Primary Care Provider, Referrin g Provider Active Dr. Joaquim Suárez DPM Attending Provider Active Team Status: Active Member Role Status Dates Dr. Tonio Fajardo DO Primary Care Provider Active Dr. Francisco Javier Lozada MD Attending Provider Active Dr. Joaquim Suárez DPM Referring Provider Active Team Status: Inactive Member Role Status Dates Dr. Tonio Fajardo DO Primary Care Provider Active Dr. Joaquim Suárez DPM Attending Provider, Referring Provider Active Team Status: Inactive Member Role Status Dates Dr. Tonio Fajardo DO Primary Care Provider Active Dr. Joaquim Suárez DPNancy Referring Provider Active Dr. Edi Ledesma DPM Attending Provider Active Team Status: Inactive Member Role Status Dates Dr. Tonio Fajardo , DO Primary Care Provider, Referrin g Provider Active Lorie Mart SENIOR BOILER OPERATOR, SENIOR BOILER OPERATOR-C Attending Provider Active Team Status: Inactive Member Role Status Dates Dr. Tonio Fajardo , DO Primary Care Provider, Referrin g Provider Active Leslie Arriaga PA, PA Attending Provider Active Team Status: Inactive Member Role Status Dates Dr. Tonio Fajardo DO Primary Care Provider Active Lorie Mart SENIOR BOILER OPERATOR, SENIOR BOILER OPERATOR-C Attending Provider, Referrin g Provider Active Team Status: Active Member Role Status Dates Dr. Tonio Fajardo DO Primary Care Provider Active Dr. Issa Looney MD Attending Provider Active Team Status: Inactive Member Role Status Dates Dr. Tonio Fajardo , DO Primary Care Provider Active Leslie Arriaga PA, PA Attending Provider, Referr ing Provider Active Team Status: Inactive Member Role Status Dates Dr. Tonio Fajardo DO Primary Care Provider Active Dr. Joaquim Suárez DPM Attending Provider Active Infusion Therapy Nurse Relationship Specialty Start Date End Date Tonio Fajardo DO [address] [place] [address] PCP - General Family Medicine 04/05/22 Team Status: Active Member Role Status Dates Dr. Tonio Fajardo DO Primary Care Provider Active Team Status: Inactive Member Role Status Dates Dr. Tonio Fajardo DO Primary Care Provider Active Start: July 03, 2024 End: July 03, 2024 Dr. Joaquim Suárez DPM Attending Provider Active Start: July 03, 2024 End: July 03, 2024 Dr. Joaquim Suárez DPM Referring Provider Active Start: July 03, 2024 End: July 03, 2024 Team Status: Inactive Member Role Status Dates Dr. Tonio Fajardo DO Primary Care Provider Active Start: September 25, 2024 End: September 25, 2024 Dr. Tonio Fajardo DO Referring Provider Active Start: September 25, 2024 End: September 25, 2024 Leslie DAMIAN PA Attending Provider Active Start: September 25, 2024 End: September 25, 2024 Team Status: Inactive Member Role Status Dates Dr. Tonio Fajardo DO Primary Care Provider Active Start: September 25, 2024 End: September 25, 2024 Leslie DAMIAN PA Attending Provider Active Start: September 25, 2024 End: September 25, 2024 Leslie DAMIAN PA Referring Provider Active Start: September 25, 2024 End: September 25, 2024 Team Status: Inactive Member Role Status Dates Dr. Tonio Fajardo DO Primary Care Provider Active Start: October 16, 2024 End: October 16, 2024 Lorie Mart SENIOR BOILER OPERATOR, SENIOR BOILER OPERATOR-C Attending Provider Active Start: October 16, 2024 End: October 16, 2024 Lorie Mart SENIOR BOILER OPERATOR, SENIOR BOILER OPERATOR-C Referring Provider Active Start: October 16, 2024 End: October 16, 2024 Team Status: Active Member Role Status Dates Dr. Tonio Fajardo DO Primary Care Provider Active Start: October 17, 2024 Lorie Mart SENIOR BOILER OPERATOR, SENIOR BOILER OPERATOR-C Referring Provider Active Start: October 17, 2024 Lorie Mart SENIOR BOILER OPERATOR, SENIOR BOILER OPERATOR-C Other Provider Active Start: October 17, 2024 Dr. Tyrell Uriarte DO Attending Provider Active S tart: October 17, 2024 Team Status: Active Member Role Status Dates Dr. Tonio Fajardo DO Primary Care Provider Active Start: October 20, 2024 Dr. Tonio Fajardo DO Attending Provider Active Start: October 20, 2024 Dr. Tonio Fajardo DO Referring Provider Active Start: October 20, 2024 Team Status: Inactive Member Role Status Dates Dr. Tonio Fajardo DO Primary Care Provider Active Start: October 23, 2024 End: October 23, 2024 Dr. Tonio Fajardo DO Referring Provider Active Start: October 23, 2024 End: October 23, 2024 Lorie Mart SENIOR BOILER OPERATOR, SENIOR BOILER OPERATOR-C Attending Provider Active Start: October 23, 2024 End: October 23, 2024 Team Status: Inactive Member Role Status Dates Dr. Tonio Fajardo DO Primary Care Provider Active Start: October 20, 2024 End: October 20, 2024 Dr. Tonio Fajardo DO Attending Provider Active Start: October 20, 2024 End: October 20, 2024 Dr. Tonio Fajardo DO Referring Provider Active Start: October 20, 2024 End: October 20, 2024 Team Status: Active Member Role Status Dates Dr. Tonio Fajardo DO Primary Care Provider Active Start: October 30, 2024 Dr. Russ Zamora MD Attending Provider Active S tart: October 30, 2024 Dr. Russ Zamora MD Referring Provider Active S tart: October 30, 2024 Team Status: Inactive Member Role Status Dates Dr. Tonio Fajardo DO Primary Care Provider Active Start: October 30, 2024 End: October 30, 2024 Dr. Russ Zamora MD Attending Provider Active S tart: October 30, 2024 End: October 30, 2024 Dr. Russ Zamora MD Referring Provider Active S tart: October 30, 2024 End: October 30, 2024 Team Status: Inactive Member Role Status Dates Dr. Tonio Fajardo DO Primary Care Provider Active Start: November 06, 2024 End: November 06, 2024 Dr. Tonio Fajardo DO Referring Provider Active Start: November 06, 2024 End: November 06, 2024 Dr. Russ Zamora MD Attending Provider Active S tart: November 06, 2024 End: November 06, 2024 Team Status: Active Member Role Status Dates Dr. Tonio Fajardo DO Primary Care Provider Active Start: November 06, 2024 Dr. Rsus Zamora MD Attending Provider Active S tart: November 06, 2024 Dr. Russ Zamora MD Referring Provider Active S tart: November 06, 2024 Dr. Srini Choi DO Other Provider Active Sta rt: November 06, 2024 Team Status: Active Member Role/Relationship Status Dates Dr. Tonio Fajardo DO Primary Care Provider Active Team Status: Inactive Member Role/Relationship Status Dates Dr. Tonio Fajardo DO Primary Care Provider Active Start: November 06, 2024 End: November 06, 2024 Dr. Tonio Fajardo DO Referring Provider Active Start: November 06, 2024 End: November 06, 2024 Dr. Russ Zamora MD Attending Provider Active S tart: November 06, 2024 End: November 06, 2024 Team Status: Active Member Role/Relationship Status Dates Dr. Tonio Fajardo DO Primary Care Provider Active Start: November 06, 2024 Dr. Russ Zamora MD Attending Provider Active S tart: November 06, 2024 Dr. Russ Zamora MD Referring Provider Active S tart: November 06, 2024 Dr. Srini Choi DO Other Provider Active Sta rt: November 06, 2024 Team Status: Active Member Role/Relationship Status Dates Dr. Tonio Fajardo DO Primary Care Provider Active Start: March 04, 2025 Dr. Chris Ochoa MD Emergency Provider Active S tart: March 04, 2025 Dr. Nicola Lindsey DO Admit Provider Active Start: March 04, 2025 Dr. Nicola Lindsey DO Attending Provider Active Start: March 04, 2025 (unrecognized sect ion and content) No Status Records FoundNo Status Records Found INFORMATION SOURCE (unrecogn ized section and content) DATE CREATED AUTHOR 08/12/2022 [facility] DATE CREATED AUTHOR AUTHOR'S ORGANIZ ATION 11/11/2024 [facility] FOR RECORDS PERTAINING TO PATIENTS WHO ARE [...] BE BASED ON THE PRIMARY CLINICAL RECORDS. [facility] [employer] [facility]. provides no warranty or guarantee of the accuracy or completeness of information in this document.
[2025-03-05] VITALS (24 sets, daily range): BP systolic 103–139; BP diastolic 46–101; PULSE 53–118; RESP 16–23; TEMP 35.9–36.8; O2SAT 93–100; BMI 25.5
[2025-03-05] MEDS: Diltiazem 125 MG in Dextrose 5%-Water (100mL Bag) 100 ML IV (00:39)
--- NOTE | 2025-03-05 04:30 | RAD_ITS ---
PROCEDURE: CHEST 1 VIEW (PORTABLE) 03/05/2025 REASON FOR EXAM: AE CHF TECHNIQUE: Frontal view of the chest. COMPARISON: 03/04/2025 FINDINGS: Rotated patient. Normal heart size. Status post CABG. Moderate right effusion, adjacent airspace disease favoring atelectasis. Under aeration of the left lung with faint left mid and lower lung zone airspace opacity, possibly edema or pneumonia. Asymmetric right apical pleural thickening. No pneumothorax. RAD/Chest 1 View (Portable) IMPRESSION: Small interval improvement in right lung base aeration. Reading Location: [place] [id number]
[2025-03-05 06:19] LABS: Hematocrit 30.1 % (40-54); Hemoglobin 9.3 g/dL (13.0-16.5); Immature Granulocytes Count 0.020 X10^3/uL (0.0-0.0); Mean Corp Hgb Conc 30.9 g/dL (32-36); Mean Corpuscular Volume 87.5 fL (80-94); Mean Platelet Vol. 10.7 fl (6.2-12.0); NRBC Flagged by Analyzer 0 % (0-5); Platelet Count 181 K/mm3 (150-450); RBC Distribution Width CV 16.6 % (11.6-14.6); RBC Distribution Width SD 52.8 fl (35.1-43.9); Red Blood Count 3.44 M/mm3 (4.6-6.2); White Blood Count 7.6 K/mm3 (4.4-11.0)
[2025-03-05 06:58] LABS: AST(SGOT) 15 U/L (<=37); Alanine Aminotransfer ALT/SGPT 10 U/L (<=46); Albumin, Serum 3.4 g/dL (3.4-4.8); Alkaline Phosphatase 75 U/L (40-129); Anion Gap 10 (5-15); BUN 36 mg/dL (4-19); BUN/Creat Ratio 18.6 RATIO (10-20); Calcium,Total 9.1 mg/dL (7.6-11.0); Carbon Dioxide 27.2 mmol/L (21.0-32.0); Chloride 101 mmol/L (98-108); Cholesterol 117 mg/dL (<=200); Estimated Creatinine Clearance 27.26 ml/min (50-250); Globulin 3.9 g/dL (2.2-4.2); Glucose 171 mg/dL (70-99); Low Density Lipoprotein Calc. 63 mg/dL; Potassium 5.0 mmol/L (3.3-5.1); Pro- Brain NATRIURETIC PEPTIDE 4176 pg/mL (<=1800); Triglycerides 79 mg/dL; Very Low Density Lipoprotein 16 mg/dL (5-40); cholesterol:hdl ratio screen 3.04
--- NOTE | 2025-03-05 07:19 | PN.HOSP_ITS ---
Reason for Visit Chief Complaint: SOB. Objective Data Objective Data Vital Signs: Vital Signs Temp Pulse Resp BP Pulse Ox O2 Del Method O2 Flow Rate 98.2 F 61 16 113/48 L 100 Nasal Cannula 3 03/04/25 21:11 03/05/25 07:07 03/05/25 07:07 03/05/25 06:12 03/05/25 07:07 03/05/25 07:07 03/05/25 07:07 Oxygen Flow Rate (L/min) 3 Oxygen Delivery Method Nasal Cannula Weight: 158 lb 8.198 oz Body Mass Index (BMI) 25.5 Intake & Output: Intake and Output for Last 24 Hours 03/03/25 03/04/25 03/05/25 23:59 23:59 23:59 Intake Total 50 / 290 618.00 / 618.00 Output Total 1801 / 1801 Balance 50 / 40 -1183.00 / -1183.00 Lab / Micro Data 03/05/25 06:08 03/05/25 06:08 Labs: Laboratory Results - last 24 hr 03/04/25 15:10: WBC 7.6, RBC 3.74 L, Hgb 10.1 L, Hct 33.4 L, MCV 89.3, MCH 27.0, MCHC 30.2 L, RDW Std Deviation 54.2 H, RDW Coeff of Reggie 16.5 H, Plt Count 189, MPV 10.2, Immature Gran % (Auto) 0.700, Neut % (Auto) 78.1 H, Lymph % (Auto) 10.1 L, [place] % (Auto) 9.1, Eos % (Auto) 1.6, Baso % (Auto) 0.4, Absolute Neuts (auto) 6.0, Absolute Lymphs (auto) 0.77 L, Nucleated RBC % 0, Sodium 138, P otassium 5.2 H, Chloride 102, Carbon Dioxide 28.6, Anion Gap 8, BUN 37 H, C reatinine 1.86 H, Estim Creat Clear Calc 28.58 L, Est GFR (MDRD) Non-Af 36 L, BUN/Creatinine Ratio 19.7, Glucose 124 H, Hemoglobin A1c 6.3 H, Calcium 9.3, T roponin T High Sens 44 H, NT pro BNP II 3316 H 03/04/25 17:20: Troponin T Hi Sens 2 Hr 45 H 03/04/25 19:15: Magnesium 2.0, Troponin T Hi Sens 4Hr 42 H, TSH 3.780 03/04/25 20:18: Urine Color Yellow, Urine Clarity Cloudy, Urine pH 6.5, Ur Specific [place] 1.010, Urine Protein 100 H, Urine Glucose (UA) Normal, Urine Ketones Negative, Urine Occult Blood 50 H, Urine Nitrite Positive H, Urine Bilirubin Negative, Urine Urobilinogen Normal, Ur Leukocyte Esterase 500 H, Urine RBC 5-10 SEEN, Urine WBC >100 SEEN, Ur Squamous Epith Cells 0 SEEN, Urine Bacteria 2+, Urine Mucus 0 SEEN 03/04/25 22:18: POC Glucose 80 03/05/25 06:01: POC Glucose 159 H 03/05/25 06:08: WBC 7.6, RBC 3.44 L, Hgb 9.3 L, Hct 30.1 L, MCV 87.5, MCH 27.0, MCHC 30.9 L, RDW Std Deviation 52.8 H, RDW Coeff of Reggie 16.6 H, Plt Count 181, MPV 10.7, Immature Gran % (Auto) 0.300, Neut % (Auto) 76.4 H, Lymph % (Auto) 9.5 L, [place] % (Auto) 11.4 H, Eos % (Auto) 2.0, Baso % (Auto) 0.4, Absolute Neuts (auto) 5.8, Absolute Lymphs (auto) 0.72 L, Nucleated RBC % 0, Sodium 138, Potassium 5.0, Chloride 101, Carbon Dioxide 27.2, Anion Gap 10, BUN 36 H, C reatinine 1.95 H, Estim Creat Clear Calc 27.26 L, Est GFR (MDRD) Non-Af 34 L, BUN/Creatinine Ratio 18.6, Glucose 171 H, Calcium 9.1, Phosphorus 3.3, Total Bilirubin 0.46, AST 15, ALT 10, Alkaline Phosphatase 75, NT pro BNP II 4176 H, Total Protein 7.3, Albumin 3.4, Globulin 3.9, Albumin/Globulin Ratio 0.9, Triglycerides 79, Cholesterol 117, LDL Cholesterol, Calc 63, VLDL Cholesterol 16, HDL Cholesterol 39 L, Cholesterol/HDL Ratio 3.04 Radiography Diagnostic Testing: Radiology Impression Chest X-Ray 03/04/25 14:59 IMPRESSION: Cardiomegaly and CHF with small right pleural effusion and bibasilar atelectasis worse at the right lung base. Reading Location: [facility] Chest X-Ray 03/05/25 04:30 IMPRESSION: Small interval improvement in right lung base aeration. Reading Location: [place] [address] Rhythm Strip Rhythm Strip: Atrial flutter Rate: 108 Ectopy: None Physical Exam Narrative Seen and examined Patient shortness of breath is improved. He was short of breath even at rest, worse with mild exertion/walking. Did not feel flutter waves/palpitation. No syncope. Denies chest pain. Had CABG several years ago and coronary stent prior to that. Denies burning with urination. Hadbowel movement Physical exam: General: Alert, Oriented x3, Cooperative HEENT: Atraumatic, PERRLA, EOMI, Normocephalic. Oral: No Gingival or Mucosal Lesions/ Ulcerations Neck: Supple, No JVD, Negative Carotid Bruits Chest wall/Lungs: Air entry diminished in bilateral lung bases. No crepitation/rhonchi Cardiovascular: Irregular rhythm, Normal S1,S2, systolic murmur. CABG scar Abdomen: Bowel Sounds Present, Soft, Non Tender, Non-Distended : No dysuria. No renal angle tenderness. No suprapubic tenderness. Extremities: Minimal to mild pedal edema, Capillary Refill Less than 3 Seconds Skin: No rashes, No breakdown Musculoskeletal: No Tenderness to Palpation of Joints or Extremities Neurological: Cranial nerves II-XII grossly intact, DTR 2+/4. No acute focal neurological deficit. Psych/Mental Status: Normal Affect, Appropriate. Assessment & Plan Assessment/Plan (1) CHF exacerbation: QUALIFIERS: Heart failure type: unspecified Qualified Code(s): I 50.9 - Heart failure, unspecified (2) Atrial flutter with rapid ventricular response: (3) Chronic anticoagulation: (4) Elevated troponin: (5) Hyperkalemia: (6) Pleural effusion on right: (7) Acute cystitis with hematuria: (8) Atherosclerosis of coronary artery of [place] heart without angina pectoris: QUALIFIERS: Coronary Disease-Associated Artery/Lesion type: [place] artery Qualified Code(s): I25.10 - Atherosclerotic heart disease of [place] coronary artery without angina pectoris (9) Overweight (BMI 25.0-29.9): PLAN: Plan 80-year-old gentleman on 4 L of O2 with history of lung cancer/COPD was admitted with shortness of breath for 1 day. Noted hypoxia 78 to 80% on room air on EMS. No leg swelling. No fever chest pain. Denies any change in cough. EMS vitals shows tachycardia heart rate 120/min, glucose 174, pulse ox 83%, end-tidal 30. 1. Acute exacerbation of chronic HFpEF: Patient admitted in PCU. elevated NT pro-BNP II of 3,316 pg/mL with a corresponding CXR that revealed cardiomegaly and CHF with small right pleural effusion and bibasilar atelectasis worse at the Right lung base Maintain metoprolol and lisinopril as before. 03/04: Heart failure core measures including intake and output, fluid restriction less than 1500 mL, daily weight monitoring, kidney and electrolytes monitoring. On furosemide 40 mg twice daily. Serial troponins 44, 45 and 42 therefore no significant delta change. ACS ruled out. Brick Wheeler is consulted. Repeat proBNP is elevated but it does not reflect treatment response as it should not be ordered for that. Clinically patient is feeling better with improvement in shortness of breath. 2D echo 03/05 reported EF 55%, PASP 42 mmHg with moderate TR, moderate IL and mild PI. 2. EKG evidence of Atrial Flutter; with Rapid Ventricular Response of ~117 bpm even after being treated with IV Cardizem bolus probably precipitating CHF exacerbation: Patient already on apixaban patient had digoxin. TSH 3.7 normal. Twelve-lead EKG individually reviewed and shows atrial flutter 2 is to 1 conduction. Later on irregular variable conduction on nurse monitoring 3. CKD; stage IIIb with hyperkalemia, present on admission:-serum creatinine of 1.86 mg/dL, BUN of 37 mg/dL and EGFR of 36 mL/min present on admission. Treated with IV furosemide. Repeat potassium 5.0 slightly better than 5.2. His baseline creatinine runs around 2.21-2.36. Admitted with 1.87, today 1.86. 5. UA positive for Acute Cystitis; with microscopic hematuria:- Start IV ceftriaxone empirically. Urine culture ordered 6. CAD; s/p CABG x 3 (2012) - 7. Essential hypertension; on lisinopril and metoprolol BID - Resume home regimen plus give as needed IV hydralazine for systolic blood pressure greater than 160 mmHg. 8. Hyperlipidemia; on pravastatin - Continue statin and check lipid profile. 9. Chronic hypoxic respiratory failure on 4 L continuously: 10. 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 On sitagliptin. Accu-Chek before meals and at bedtime with Humalog sliding scale coverage and hypoglycemia protocol. 11. Peripheral artery disease with history of left lower extremity ulcer status post aortofemoral bypass graft in 2009 and chronic venous insufficiency. Continue clopidogrel 12. Overweight; with BMI of 26 this admission - Weight loss will be recommended. 13. Chronic anemia - Stable with hemoglobin of 10.1 g/dL and MCV of 89.3 fL present on admission. Hemoglobin 9.3. Does not show significant drop or meet criteria for acute anemia 14. Chronic degenerative arthritis, give acetaminophen prn pain or fever DVT prophylaxis - Patient already on apixaban for #2 which will be continued. Laboratory Results 03/04/25 15:10: Sodium 138, Potassium 5.2 H, Chloride 102, Carbon Dioxide 28.6, Anion Gap 8, BUN 37 H, Creatinine 1.86 H, Estim Creat Clear Calc 28.58 L, Est GFR (MDRD) Non-Af 36 L, BUN/Creatinine Ratio 19.7, Glucose 124 H, Hemoglobin A1c 6.3 H, Calcium 9.3, Troponin T High Sens 44 H, NT pro BNP II 3316 H 03/04/25 17:20: Troponin T Hi Sens 2 Hr 45 H 03/04/25 19:15: Magnesium 2.0, Troponin T Hi Sens 4Hr 42 H, TSH 3.780 03/04/25 20:18: Urine Color Yellow, Urine Clarity Cloudy, Urine pH 6.5, Ur Specific Ensign 1.010, Urine Protein 100 H, Urine Glucose (UA) Normal, Urine Ketones Negative, Urine Occult Blood 50 H, Urine Nitrite Positive H, Urine Bilirubin Negative, Urine Urobilinogen Normal, Ur Leukocyte Esterase 500 H, Urine RBC 5-10 SEEN, Urine WBC >100 SEEN, Ur Squamous Epith Cells 0 SEEN, Urine Bacteria 2+, Urine Mucus 0 SEEN 03/04/25 22:18: POC Glucose 80 03/05/25 06:01: POC Glucose 159 H 03/05/25 06:08: WBC 7.6, RBC 3.44 L, Hgb 9.3 L, Hct 30.1 L, MCV 87.5, MCH 27.0, MCHC 30.9 L, RDW Std Deviation 52.8 H, RDW Coeff of Reggie 16.6 H, Plt Count 181, MPV 10.7, Immature Gran % (Auto) 0.300, Neut % (Auto) 76.4 H, Lymph % (Auto) 9.5 L, [place] % (Auto) 11.4 H, Eos % (Auto) 2.0, Baso % (Auto) 0.4, Absolute Neuts (auto) 5.8, Absolute Lymphs (auto) 0.72 L, Nucleated RBC % 0 Sodium 138, Potassium 5.0, Chloride 101, Carbon Dioxide 27.2, Anion Gap 10, BUN 36 H, Creatinine 1.95 H, Estim Creat Clear Calc 27.26 L, Est GFR (MDRD) Non-Af 34 L, BUN/Creatinine Ratio 18.6, Glucose 171 H, Calcium 9.1, Phosphorus 3.3, Total Bilirubin 0.46, AST 15, ALT 10, Alkaline Phosphatase 75, NT pro BNP II 4176 H, Total Protein 7.3, Albumin 3.4, Globulin 3.9, Albumin/Globulin Ratio 0.9, Triglycerides 79, Cholesterol 117, LDL Cholesterol, Calc 63, VLDL Cholesterol 16, HDL Cholesterol 39 L, Cholesterol/HDL Ratio 3.04 03/05/25 11:24: POC Glucose 152 H Clinical Impression(s) from Imaging Studies Chest X-Ray 03/04/25 14:59 IMPRESSION: Cardiomegaly and CHF with small right pleural effusion and bibasilar atelectasis worse at the right lung base. Reading Location: [facility] Echocardiogram 03/04/25 20:08 Interpretation Summary Moderate concentric left ventricular hypertrophy. The LV ejection fraction is 55 %. Stage 1 diastolic dysfunction. The left atrium is severely enlarged. Severe mitral valve annular calcification. Moderate posteriorly directed mitral valve regurgitation. Moderate tricuspid valve regurgitation. Estimated pulmonary artery systolic pressure 42 mmHg. Mild (1+) pulmonic valve insufficiency. The study was technically difficult. Ordering Physician: Nicola Lindsey Referring Physician: SCOTTY ELIZALDE Performed By: Haley Stevens and Student Chest X-Ray 03/05/25 04:30 IMPRESSION: Small interval improvement in right lung base aeration. Reading Location: [place] [address] Charges/Coding Addendum Addendum: Total time of the visit including total time spent in counseling or coordination of care, (more than 50% of the total time, spent in obtaining medical information from nurses and other ancillary care providers ,explaining to the patient about labs, imaging, diagnosis and management of active complex medical conditions), multiple conditions,, cardiology consult review of labs and imaging is 35 minutes. Visit Charges Inpatient E&M: 56009 Subs Hosp L3
[2025-03-05] MEDS: Magnesium Chloride 64 MG Delay Rel.Tablet 128 MG PO ×2 (09:15→21:12)
[2025-03-05] MEDS: APIXABAN 5 MG TABLET PO ×2 (09:16→21:12)
[2025-03-05] MEDS: Insulin Glargine-YFGN 100 UNIT/ML Pen 30 UNIT SC (13:14)
[2025-03-05] MEDS: 0.9% Saline Lock 10 ML Syringe IV (21:23)
[2025-03-06] VITALS (16 sets, daily range): BP systolic 101–132; BP diastolic 40–87; PULSE 53–119; RESP 15–24; TEMP 36.4–36.9; O2SAT 84–100; BMI 26.2
[2025-03-06] MEDS: Digoxin 250 MCG/ML Ampul IV (03:36)
[2025-03-06] MEDS: 0.9% Saline Lock 10 ML Syringe IV ×3 (03:36→22:36)
[2025-03-06 06:48] LABS: Anion Gap 8 (5-15); BUN 40 mg/dL (4-19); BUN/Creat Ratio 17.8 RATIO (10-20); Calcium,Total 9.1 mg/dL (7.6-11.0); Carbon Dioxide 31.2 mmol/L (21.0-32.0); Chloride 99 mmol/L (98-108); Estimated Creatinine Clearance 23.84 ml/min (50-250); Glucose 118 mg/dL (70-99); Potassium 4.7 mmol/L (3.3-5.1)
[2025-03-06] MEDS: APIXABAN 5 MG TABLET PO ×2 (09:16→22:35)
[2025-03-06] MEDS: Insulin Glargine-YFGN 100 UNIT/ML Pen 30 UNIT SC (09:17)
[2025-03-06] MEDS: Magnesium Chloride 64 MG Delay Rel.Tablet 128 MG PO ×2 (09:18→22:34)
[2025-03-06] MEDS: Senna/Docusate Sodium 1 Tablet 2 TABLET PO (09:19)
--- NOTE | 2025-03-06 09:26 | CON.PCM.CA_ITS ---
Assessment & Plan Assessment/Plan (1) Atrial flutter with rapid ventricular response: PLAN: Increase metoprolol to 25 mg twice daily. Start on diltiazem 60 mg p.o. every 6 hours. If he can tolerate that, then switch to longer acting in the morning. Continue apixaban for prevention of thromboembolic phenomenon. (2) Acute on chronic diastolic congestive heart failure: PLAN: Continue furosemide. Changed to 40 mg daily. Monitor electrolytes. (3) Coronary artery disease: PLAN: History of CABG. Continue beta-blockers. Statins. On apixaban. Recommend pharmacological stress test as outpatient. (4) Mitral valve regurgitation: PLAN: Furosemide. ACEI. (5) Tricuspid valve regurgitation: PLAN: Furosemide. (6) Hypertension: QUALIFIERS: Hypertension type: essential hypertension Qualified Code(s): I10 - Essential (primary) hypertension PLAN: Beta-blockers, diltiazem, furosemide, ACEI. (7) Diabetes: PLAN: As per internal medicine. (8) Peripheral arterial disease: PLAN: Follows with vascular surgery. On clopidogrel. HPI Consult Data Date of Consult: 03/06/25 HPI Narrative Reason for Consultation: Atrial flutter HPI Narrative: 80-year-old gentleman with past medical history significant for coronary artery disease status post CABG in 2013, HFpEF, atrial flutter, peripheral arterial disease and diabetes mellitus. Presented to the hospital with complaints of shortness of breath with exertion. According to him, the symptoms started about a week prior to presentation. Denies any chest pains either at rest or with exertion. Denied orthopnea. No PND. No ankle edema. In the emergency room, he was noted to be in atrial flutter with rapid ventricular response. Also noted to have markedly elevated BNP levels. He was started on a diltiazem infusion for controlling his ventricular rate with his atrial flutter. Also started on IV diuretics for his congestive heart failure. Presently patient feels much better. According to him, his shortness of breath is much improved. [facility] Medical History (Updated 03/06/25 @ 09:[address] Marjorie Green MD) Other persistent atrial fibrillation New onset atrial flutter COVID Wears hearing aid in both ears Former smoker Coronary artery disease Peripheral vascular occlusive disease BPH (benign prostatic hyperplasia) Chronic kidney disease, stage 3 Atherosclerosis of coronary artery of [place] heart without angina pectoris Hyperlipidemia Lower extremity edema Venous insufficiency Malnutrition Delayed wound healing Osteomyelitis of ankle, left, acute Ulcer of left lower extremity with fat layer exposed Type 2 diabetes mellitus with diabetic polyneuropathy Anemia GERD (gastroesophageal reflux disease) Hypertension Home Medications ?Medication ?Instructions ?Recorded ?Last Taken ?Type insulin glargine 100 unit/mL 30 unit SQ DAILY diabetes 11/19/19 03/03/25 History subcutaneous solution multivitamin (Daily Multi-Vitamin 1 tab PO DAILY suppl ement 06/28/20 03/03/25 History tablet) sitagliptin phosphate 50 mg tablet 50 mg PO DAILY diab etes 11/02/21 03/03/25 History (Januvia) pravastatin 20 mg tablet 20 mg PO DAILY hyperlipidemi a 01/17/22 03/03/25 History cranberry 500 mg capsule 500 mg PO DAILY supplement 1 09/25/22 03/03/25 History docusate sodium 100 mg capsule 100 mg PO DAILY PRN sto ol softn 07/25/23 Unknown History (Colace) metoprolol tartrate 25 mg tablet 12.5 mg (1/2 x 25 mg) PO BID 06/18/24 03/03/25 Rx hypertension #45 TABLETS apixaban 5 mg tablet (Eliquis) 5 mg PO BID atrial fibr illation 08/04/24 03/03/25 Rx #180 TABLETS albuterol sulfate 90 mcg/actuation 2 puff inhalation Q 4H PRN 10/23/24 Unknown Rx aerosol inhaler shortness of breath or wheez ing #3 device guaifenesin 1,200 mg tablet, 1,200 mg PO Q12H #180 tab s 10/23/24 Unknown Rx extended release 12 hr umeclidinium 62.5 mcg-vilanterol 1 inh inhalation QDAY copd #60 ea 10/23/24 03/03/25 Rx 25 mcg/actuation powdr for inhalation (Anoro Ellipta) clopidogrel 75 mg tablet (Plavix) 75 mg PO DAILY atria l fibrillation 11/11/24 03/03/25 Rx #90 tabs lisinopril 2.5 mg tablet 2.5 mg PO DAILY hypertension #90 02/02/25 03/03/25 Rx TABLETS Allergy/AdvReac Type Severity Reaction Status Date / Time ibuprofen Allergy Severe Facial Verified 11/06/24 14:44 swelling (angioedema) Family History Brother Diabetes Father , Age 72 stomach ulcers No problems noted. Mother , Age 71 pancreatitis No problems noted. Sister , hepatitis C No problems noted. Surgical History H/O aorto-femoral bypass (~2009) History of transurethral resection of prostate Presence of aortocoronary bypass graft (~03/2013) Social History Smoking Status: Former smoker Tobacco: How many years used: 30 how long ago did patient quit smokin years Physical Exam Narrative Comfortable. No apparent distress. Sitting up in chair. Heart sounds 1 and 2 noted. Tachycardic. Chest clear to auscultation bilaterally. Alert oriented x 3. Trace bilateral ankle edema. Risk Stratification Risk Stratification Applicable: No Objective Data Vital Signs: Vital Signs Temp Pulse Resp BP Pulse Ox O2 Del Method O2 Flow Rate 98.0 F 78 19 H 113/40 L 93 Nasal Cannula 4 03/06/25 06:25 03/06/25 09:18 03/06/25 07:41 03/06/25 06:25 03/06/25 07:40 03/06/25 07:40 03/06/25 07:40 Oxygen Flow Rate (L/min) 4 Oxygen Delivery Method Nasal Cannula Weight: 162 lb 11.218 oz Body Mass Index (BMI) 26.2 Intake & Output: Intake and Output for Last 24 Hours 03/04/25 03/05/25 03/06/25 23:59 23:59 23:59 Intake Total 50 / 290 908.00 / 908.00 0 / 0 Output Total 3451 / 3451 1550 / 1550 Balance 50 / 40 -2543.00 / -2543.00 -1550 / -1550 Lab / Micro Data 03/05/25 06:08 03/06/25 06:02 Labs: Laboratory Results - last 24 hr 03/05/25 11:24: POC Glucose 152 H 03/05/25 16:35: POC Glucose 111 H 03/05/25 21:06: POC Glucose 140 H 03/06/25 06:02: Sodium 138, Potassium 4.7, Chloride 99, Carbon Dioxide 31.2, Anion Gap 8, BUN 40 H, Creatinine 2.23 H, Estim Creat Clear Calc 23.84 L, Est GFR (MDRD) Non-Af 29 L, BUN/Creatinine Ratio 17.8, Glucose 118 H, Calcium 9.1, Phosphorus 3.9 03/06/25 06:32: POC Glucose 109 H Rhythm Strip Rhythm Strip: Atrial flutter Rate: 108 Ectopy: None Cardiology Labs/Tests 03/06/25 06:02: Sodium 138, Potassium 4.7, Chloride 99, Carbon Dioxide 31.2, Anion Gap 8, BUN 40 H, Creatinine 2.23 H, Est GFR (MDRD) Non-Af 29 L, BUN/Creatinine Ratio 17.8, Glucose 118 H, Calcium 9.1, Phosphorus 3.9 Rhythm: EKG: ECHO: Normal LV systolic function. Stage I diastolic dysfunction. Moderate mitral regurgitation, moderate tricuspid regurgitation. Stress Test: Cardiac Cath: PCI: CT Surgery: Holter monitor: EPS: PPM: CXR: Chest CT Scan: Radiography Diagnostic Testing: Radiology Impression Echocardiogram 03/04/25 20:08 Interpretation Summary Moderate concentric left ventricular hypertrophy. The LV ejection fraction is 55 %. Stage 1 diastolic dysfunction. The left atrium is severely enlarged. Severe mitral valve annular calcification. Moderate posteriorly directed mitral valve regurgitation. Moderate tricuspid valve regurgitation. Estimated pulmonary artery systolic pressure 42 mmHg. Mild (1+) pulmonic valve insufficiency. The study was technically difficult. Ordering Physician: Nicola Lindsey Referring Physician: SCOTTY ELIZALDE Performed By: Haley Stevens and Student
--- NOTE | 2025-03-06 15:32 | CASEMGMT ---
RN CM in to discuss discharge planning with patient, LUPE Richter at bedside. Patient denies need for HHC or outpatient therapy at this time. Patient denies further needs at discharge. Family to bring portable tank from home for at discharge. Will monitor for increase in home oxygen, green sheet on chart.
--- NOTE | 2025-03-06 15:40 | PN.HOSP_ITS ---
Reason for Visit Chief Complaint: SOB. Objective Data Objective Data Vital Signs: Vital Signs Temp Pulse Resp BP Pulse Ox O2 Del Method O2 Flow Rate 98.0 F 69 19 H 113/40 L 84 Nasal Cannula 3 03/06/25 06:25 03/06/25 11:31 03/06/25 07:41 03/06/25 06:25 03/06/25 13:09 03/06/25 09:55 03/06/25 13:09 Oxygen Flow Rate (L/min) 3 Oxygen Delivery Method Nasal Cannula Weight: 162 lb 11.218 oz Body Mass Index (BMI) 26.2 Intake & Output: Intake and Output for Last 24 Hours 03/04/25 03/05/25 03/06/25 23:59 23:59 23:59 Intake Total 50 / 290 908.00 / 908.00 0 / 0 Output Total 3451 / 3451 1550 / 1550 Balance 50 / 40 -2543.00 / -2543.00 -1550 / -1550 Medical Nutrition Assessment Dietitian: Malnutrition Criteria Met Start: 03/05/25 14:17 Freq: Status: Active Protocol: Document 03/05/25 14:17 SB (Rec: 03/05/25 14:17 SB [id number]) Nutrition Malnutrition Evidence of Yes Malnutrition Exists Malnutrition (severe Acute Illness/Injury ): Evidenced By Suboptimal Energy Intake (Severe),Weight Loss (Severe) Clinical Problem Acute Disease or Injury Related Malnutrition Etiology severe malnutrition in the context of lung cancer related to inadequate oral/energy intake Signs/Symptoms as evidenced by PO meeting <50% of estimated nutrition needs x 1 month and 10% unintentional weight loss x 2 months Status Active Problem Recommendation Dietitian Liberalize to regular, no added salt diet due to signs Recommendations/ and symptoms of malnutrition. Changes Will order 120ml glucerna shake TID with meals. Will monitor weight trends. Lab / Micro Data 03/05/25 06:08 03/06/25 06:02 Labs: Laboratory Results - last 24 hr 03/05/25 16:35: POC Glucose 111 H 03/05/25 21:06: POC Glucose 140 H 03/06/25 06:02: Sodium 138, Potassium 4.7, Chloride 99, Carbon Dioxide 31.2, Anion Gap 8, BUN 40 H, Creatinine 2.23 H, Estim Creat Clear Calc 23.84 L, Est GFR (MDRD) Non-Af 29 L, BUN/Creatinine Ratio 17.8, Glucose 118 H, Calcium 9.1, Phosphorus 3.9 03/06/25 06:32: POC Glucose 109 H 03/06/25 11:36: POC Glucose 229 H Rhythm Strip Rhythm Strip: Atrial flutter Rate: 108 Ectopy: None Physical Exam Narrative Seen and examined Patient shortness of breath is improved. Still in A-fib/flutter with heart rate 110s. Shortness of breath is better. Did not feel flutter waves/palpitation. No syncope. Denies chest pain. Had CABG several years ago and coronary stent prior to that. Denies burning with urination. Had bowel movement Physical exam: General: Alert, Oriented x3, Cooperative HEENT: Atraumatic, PERRLA, EOMI, Normocephalic. Oral: No Gingival or Mucosal Lesions/ Ulcerations Neck: Supple, No JVD, Negative Carotid Bruits Chest wall/Lungs: Air entry diminished in bilateral lung bases. No crepitation/rhonchi Cardiovascular: Irregular rhythm, Normal S1,S2, systolic murmur. CABG scar Abdomen: Bowel Sounds Present, Soft, Non Tender, Non-Distended : No dysuria. No renal angle tenderness. No suprapubic tenderness. Extremities: Minimal to mild pedal edema, Capillary Refill Less than 3 Seconds Skin: No rashes, No breakdown Musculoskeletal: No Tenderness to Palpation of Joints or Extremities Neurological: Cranial nerves II-XII grossly intact, DTR 2+/4. No acute focal neurological deficit. Psych/Mental Status: Normal Affect, Appropriate. Assessment & Plan Assessment/Plan (1) CHF exacerbation: QUALIFIERS: Heart failure type: unspecified Qualified Code(s): I 50.9 - Heart failure, unspecified (2) Atrial flutter with rapid ventricular response: (3) Chronic anticoagulation: (4) Elevated troponin: (5) Hyperkalemia: (6) Pleural effusion on right: (7) Acute cystitis with hematuria: (8) Atherosclerosis of coronary artery of [place] heart without angina pectoris: QUALIFIERS: Coronary Disease-Associated Artery/Lesion type: [place] artery Qualified Code(s): I25.10 - Atherosclerotic heart disease of [place] coronary artery without angina pectoris (9) Overweight (BMI 25.0-29.9): PLAN: Plan 80-year-old gentleman on 4 L of O2 with history of lung cancer/COPD was admitted with shortness of breath for 1 day. Noted hypoxia 78 to 80% on room air on EMS. No leg swelling. No fever chest pain. Denies any change in cough. EMS vitals shows tachycardia heart rate 120/min, glucose 174, pulse ox 83%, end-tidal 30. 1. Acute exacerbation of chronic HFpEF: Patient admitted in PCU. elevated NT pro-BNP II of 3,316 pg/mL with a corresponding CXR that revealed cardiomegaly and CHF with small right pleural effusion and bibasilar atelectasis worse at the Right lung base Maintain metoprolol and lisinopril as before. 03/05: Heart failure core measures including intake and output, fluid restriction less than 1500 mL, daily weight monitoring, kidney and electrolytes monitoring. On furosemide 40 mg twice daily. Serial troponins 44, 45 and 42 therefore no significant delta change. ACS ruled out. Cryogenic Transport Driver is consulted. Repeat proBNP is elevated but it does not reflect treatment response as it should not be ordered for that. Clinically patient is feeling better with improvement in shortness of breath. 2D echo 03/05 reported EF 55%, PASP 42 mmHg with moderate TR, moderate AR and mild PI. 03/06: Furosemide changed to 40 g daily. Patient is over diuresed. 2. EKG evidence of Atrial Flutter; with Rapid Ventricular Response of ~117 bpm even after being treated with IV Cardizem bolus probably precipitating CHF exacerbation: Patient already on apixaban patient had digoxin. TSH 3.7 normal. Twelve-lead EKG individually reviewed and shows atrial flutter 2 is to 1 conduction. Later on irregular variable conduction on rn cardiac rehab 03/06: Discussed with the doughnut machine operator helper. Metoprolol increased to 25 mg twice daily, Cardizem 60 mg Q6 hourly. If heart rate controlled, will switch to long- acting Cardizem CD. 3. CKD; stage IIIb with hyperkalemia, present on admission:-serum creatinine of 1.86 mg/dL, BUN of 37 mg/dL and EGFR of 36 mL/min present on admission. Treated with IV furosemide. Repeat potassium 5.0 slightly better than 5.2. His baseline creatinine runs around 2.21-2.36. Admitted with 1.87, today 1.86. 5. UA positive for Acute Cystitis; with microscopic hematuria:- Start IV ceftriaxone empirically. Urine culture ordered 6. CAD; s/p CABG x 3 (2012) - 7. Essential hypertension; on lisinopril and metoprolol BID - Resume home regimen plus give as needed IV hydralazine for systolic blood pressure greater than 160 mmHg. 8. Hyperlipidemia; on pravastatin - Continue statin and check lipid profile. 9. Chronic hypoxic respiratory failure on 4 L continuously: 10. 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 On sitagliptin. Accu-Chek before meals and at bedtime with Humalog sliding scale coverage and hypoglycemia protocol. 11. Peripheral artery disease with history of left lower extremity ulcer status post aortofemoral bypass graft in 2009 and chronic venous insufficiency. Continue clopidogrel 12. Overweight; with BMI of 26 this admission - Weight loss will be recommended. 13. Chronic anemia - Stable with hemoglobin of 10.1 g/dL and MCV of 89.3 fL present on admission. Hemoglobin 9.3. Does not show significant drop or meet criteria for acute anemia 14. Chronic degenerative arthritis, give acetaminophen prn pain or fever DVT prophylaxis - Patient already on apixaban for #2 which will be continued. Laboratory Results Laboratory Results 03/05/25 16:35: POC Glucose 111 H 03/05/25 21:06: POC Glucose 140 H 03/06/25 06:02: Sodium 138, Potassium 4.7, Chloride 99, Carbon Dioxide 31.2, Anion Gap 8, BUN 40 H, Creatinine 2.23 H, Estim Creat Clear Calc 23.84 L, Est GFR (MDRD) Non-Af 29 L, BUN/Creatinine Ratio 17.8, Glucose 118 H, Calcium 9.1, Phosphorus 3.9 03/06/25 06:32: POC Glucose 109 H 03/06/25 11:36: POC Glucose 229 H Clinical Impression(s) from Imaging Studies Chest X-Ray 03/04/25 14:59 IMPRESSION: Cardiomegaly and CHF with small right pleural effusion and bibasilar atelectasis worse at the right lung base. Reading Location: [facility] Echocardiogram 03/04/25 20:08 Interpretation Summary Moderate concentric left ventricular hypertrophy. The LV ejection fraction is 55 %. Stage 1 diastolic dysfunction. The left atrium is severely enlarged. Severe mitral valve annular calcification. Moderate posteriorly directed mitral valve regurgitation. Moderate tricuspid valve regurgitation. Estimated pulmonary artery systolic pressure 42 mmHg. Mild (1+) pulmonic valve insufficiency. The study was technically difficult. Ordering Physician: Nicola Lindsey Referring Physician: SCOTTY ELIZLADE Performed By: Haley Stevens and Student Chest X-Ray 03/05/25 04:30 IMPRESSION: Small interval improvement in right lung base aeration. Reading Location: [facility] Charges/Coding Visit Charges Inpatient E&M: 68459 Subs Hosp L2
[2025-03-07] VITALS (10 sets, daily range): BP systolic 108–130; BP diastolic 34–79; PULSE 56–97; RESP 16–24; TEMP 36.2–36.8; O2SAT 94–99; BMI 26.3
[2025-03-07 06:12] LABS: Anion Gap 10 (5-15); BUN 56 mg/dL (4-19); BUN/Creat Ratio 18.2 RATIO (10-20); Calcium,Total 8.7 mg/dL (7.6-11.0); Carbon Dioxide 26.3 mmol/L (21.0-32.0); Chloride 97 mmol/L (98-108); Estimated Creatinine Clearance 17.21 ml/min (50-250); Glucose 126 mg/dL (70-99); Potassium 4.8 mmol/L (3.3-5.1)
--- NOTE | 2025-03-07 10:04 | PCM.DC ---
Discharge Instructions Follow Up Care Test Results: Test results from this visit will be discussed in further detail at your follow-up appointment, if applicable. Discharge Plan Admission Admit Date/Time: 03/04/25 19:57 Attending Provider: Deric Lantigua Primary Care Provider: Luis Johnson Consulting Providers: Nicola Lindsey; Paris Tiwari; Susan Hawley; Nicolette Mcdonald; Marjorie Green; Martin Vivas; Jose Lai; Issa Looney; Chago Miller; Willian Glaser; Orly Mitchell; Reinaldo Mclain; Santos Hsu; Iker Rodriguez INSURANCE INVESTIGATOR; Leslie Arriaga PA; Tadeo Thakkar Discharge Orders/Prescriptions Prescriptions: No Action multivitamin [Daily Multi-Vitamin] Tablet 1 tab PO DAILY pravastatin 20 mg tablet 20 mg PO DAILY docusate sodium [Colace] 100 mg capsule 100 mg PO DAILY PRN (Reason: stool softn) cranberry 500 mg capsule 500 mg PO DAILY Rx Instructions: administer with meals albuterol sulfate 90 mcg/actuation HFA aerosol inhaler 2 puff inhalation Q4H PRN (Reason: shortness of breath or wheezing) Qty: 3 3RF Rx Instructions: administer with spacer umeclidinium-vilanterol [Anoro Ellipta] 62.5-25 mcg/actuation blister with device 1 inh inhalation QDAY Qty: 60 3RF guaifenesin 1,200 mg tablet extended release 12hr 1,200 mg PO Q12H Qty: 180 6RF insulin glargine 100 UNIT/ML solution 30 unit SQ DAILY Januvia 50 mg Tablet 50 mg PO DAILY metoprolol tartrate 25 mg tablet 12.5 mg PO BID Qty: 45 7RF Eliquis 5 mg tablet 5 mg PO BID Qty: 180 3RF clopidogrel [Plavix] 75 mg tablet 75 mg PO DAILY Qty: 90 3RF lisinopril 2.5 mg tablet 2.5 mg PO DAILY Qty: 90 3RF Referrals / Follow Up: Luis Johnson, [Primary Care Provider] -
[2025-03-07] MEDS: APIXABAN 5 MG TABLET PO ×2 (10:16→21:43)
[2025-03-07] MEDS: Magnesium Chloride 64 MG Delay Rel.Tablet 128 MG PO ×2 (10:17→21:46)
[2025-03-07] MEDS: Insulin Glargine-YFGN 100 UNIT/ML Pen 30 UNIT SC (12:22)
--- NOTE | 2025-03-07 13:42 | PN.HOSP_ITS ---
Reason for Visit Chief Complaint: SOB. Objective Data Objective Data Vital Signs: Vital Signs Temp Pulse Resp BP Pulse Ox O2 Del Method O2 Flow Rate 98.3 F 76 18 129/34 H 97 Nasal Cannula 3 03/07/25 13:00 03/07/25 13:36 03/07/25 13:36 03/07/25 13:00 03/07/25 13:00 03/07/25 13:00 03/07/25 13:00 Oxygen Flow Rate (L/min) 3 Oxygen Delivery Method Nasal Cannula Weight: 163 lb 2.273 oz Body Mass Index (BMI) 26.3 Intake & Output: Intake and Output for Last 24 Hours 03/05/25 03/06/25 03/07/25 23:59 23:59 23:59 Intake Total 908.00 / 908.00 430 / 430 0 / 0 Output Total 3451 / 3451 2450 / 2450 300 / 300 Balance -2543.00 / -2543.00 -2020 / -2020 -300 / -300 Medical Nutrition Assessment Dietitian: Malnutrition Criteria Met Start: 03/05/25 14:17 Freq: Status: Active Protocol: Document 03/05/25 14:17 SB (Rec: 03/05/25 14:17 SB [id number]) Nutrition Malnutrition Evidence of Yes Malnutrition Exists Malnutrition (severe Acute Illness/Injury ): Evidenced By Suboptimal Energy Intake (Severe),Weight Loss (Severe) Clinical Problem Acute Disease or Injury Related Malnutrition Etiology severe malnutrition in the context of lung cancer related to inadequate oral/energy intake Signs/Symptoms as evidenced by PO meeting <50% of estimated nutrition needs x 1 month and 10% unintentional weight loss x 2 months Status Active Problem Recommendation Dietitian Liberalize to regular, no added salt diet due to signs Recommendations/ and symptoms of malnutrition. Changes Will order 120ml glucerna shake TID with meals. Will monitor weight trends. Lab / Micro Data 03/05/25 06:08 03/07/25 05:20 Labs: Laboratory Results - last 24 hr 03/06/25 16:55: POC Glucose 117 H 03/06/25 22:29: POC Glucose 146 H 03/07/25 05:20: Sodium 134, Potassium 4.8, Chloride 97 L, Carbon Dioxide 26.3, Anion Gap 10, BUN 56 H, Creatinine 3.09 H, Estim Creat Clear Calc 17.21 L, Est GFR (MDRD) Non-Af 20 L, BUN/Creatinine Ratio 18.2, Glucose 126 H, Calcium 8.7 03/07/25 06:13: POC Glucose 127 H 03/07/25 11:59: POC Glucose 184 H Micro: Microbiology 03/06/25 18:40 Urine, Clean Catch Urine Culture - Preliminary Culture exhibits no growth. Rhythm Strip Rhythm Strip: Atrial flutter Rate: 108 Ectopy: None Physical Exam Narrative Seen and examined Patient shortness of breath is improved. Patient was in bradycardia, heart rate dropped to 40s but improved to 62.9. Blood pressure was also low 108/34 but improved to 129 systolic. quality assurance monitor body reviewed. Still in A-fib/flutter. Shortness of breath is better. Did not feel flutter waves/palpitation. No syncope. Denies chest pain. Had CABG several years ago and coronary stent prior to that. Denies burning with urination. Had bowel movement Physical exam: General: Alert, Oriented x3, Cooperative HEENT: Atraumatic, PERRLA, EOMI, Normocephalic. Oral: No Gingival or Mucosal Lesions/ Ulcerations Neck: Supple, No JVD, Negative Carotid Bruits Chest wall/Lungs: Air entry diminished in bilateral lung bases. No crepitation/rhonchi Cardiovascular: Irregular rhythm, Normal S1,S2, systolic murmur. CABG scar Abdomen: Bowel Sounds Present, Soft, Non Tender, Non-Distended : No dysuria. No renal angle tenderness. No suprapubic tenderness. Extremities: Minimal to mild pedal edema, Capillary Refill Less than 3 Seconds Skin: No rashes, No breakdown Musculoskeletal: No Tenderness to Palpation of Joints or Extremities Neurological: Cranial nerves II-XII grossly intact, DTR 2+/4. No acute focal neurological deficit. Psych/Mental Status: Normal Affect, Appropriate. Assessment & Plan Assessment/Plan (1) CHF exacerbation: QUALIFIERS: Heart failure type: unspecified Qualified Code(s): I 50.9 - Heart failure, unspecified (2) Atrial flutter with rapid ventricular response: (3) Chronic anticoagulation: (4) Elevated troponin: (5) Hyperkalemia: (6) Pleural effusion on right: (7) Acute cystitis with hematuria: (8) Atherosclerosis of coronary artery of [place] heart without angina pectoris: QUALIFIERS: Coronary Disease-Associated Artery/Lesion type: [place] artery Qualified Code(s): I25.10 - Atherosclerotic heart disease of [place] coronary artery without angina pectoris (9) Overweight (BMI 25.0-29.9): PLAN: Plan 80-year-old gentleman on 4 L of O2 with history of lung cancer/COPD was admitted with shortness of breath for 1 day. Noted hypoxia 78 to 80% on room air on EMS. No leg swelling. No fever chest pain. Denies any change in cough. EMS vitals shows tachycardia heart rate 120/min, glucose 174, pulse ox 83%, end-tidal 30. 1. Acute exacerbation of chronic HFpEF: Patient admitted in PCU. elevated NT pro-BNP II of 3,316 pg/mL with a corresponding CXR that revealed cardiomegaly and CHF with small right pleural effusion and bibasilar atelectasis worse at the Right lung base Maintain metoprolol and lisinopril as before. 03/05: Heart failure core measures including intake and output, fluid restriction less than 1500 mL, daily weight monitoring, kidney and electrolytes monitoring. On furosemide 40 mg twice daily. Serial troponins 44, 45 and 42 therefore no significant delta change. ACS ruled out. Client Services Representative is consulted. Repeat proBNP is elevated but it does not reflect treatment response as it should not be ordered for that. Clinically patient is feeling better with improvement in shortness of breath. 2D echo 03/05 reported EF 55%, PASP 42 mmHg with moderate TR, moderate MT and mild PI. 03/06: Furosemide changed to 40 g daily. Patient is over diuresed. 03/07 hold Lasix. 2. EKG evidence of Atrial Flutter; with Rapid Ventricular Response of ~117 bpm even after being treated with IV Cardizem bolus probably precipitating CHF exacerbation: Patient already on apixaban patient had digoxin. TSH 3.7 normal. Twelve-lead EKG individually reviewed and shows atrial flutter 2 is to 1 conduction. Later on irregular variable conduction on satellite project site monitor 03/06: Discussed with the lead network architect. Metoprolol increased to 25 mg twice daily, Cardizem 60 mg Q6 hourly. If heart rate controlled, will switch to long- acting Cardizem CD. 03/07: Bradycardia heart rate dropped to 40s. Hold metoprolol in the morning and resume from night. Heart rate improved from 40s to 62, 76/m. Resume metoprolol from ooma. Cardizem regular changed to Cardizem CD 120 mg twice daily with holding parameters. Discussed with the patient's daughter, she was not comfortable taking home. Will try to establish heart rate. 3. DARIUSZ on CKD; stage IIIb with hyperkalemia, present on admission:-serum creatinine of 1.86 mg/dL, BUN of 37 mg/dL and EGFR of 36 mL/min present on admission. Treated with IV furosemide. Repeat potassium 5.0 slightly better than 5.2. His baseline creatinine runs around 2.21-2.36. Admitted with 1.87, today 1.86. 03/06: Furosemide changed to oral once daily. 03/07 creatinine jumped to 2.23, 3.09. BUN 56. Hold furosemide for next few days. Monitor kidney function tomorrow a.m. 5. UA positive for Acute Cystitis; with microscopic hematuria:- Start IV ceftriaxone empirically. Urine culture ordered 6. CAD; s/p CABG x 3 (2012) - 7. Essential hypertension; on lisinopril and metoprolol BID - Resume home regimen plus give as needed IV hydralazine for systolic blood pressure greater than 160 mmHg. 8. Hyperlipidemia; on pravastatin - Continue statin and check lipid profile. 9. Chronic hypoxic respiratory failure on 4 L continuously: 10. 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 On sitagliptin. Accu-Chek before meals and at bedtime with Humalog sliding scale coverage and hypoglycemia protocol. 11. Peripheral artery disease with history of left lower extremity ulcer status post aortofemoral bypass graft in 2009 and chronic venous insufficiency. Continue clopidogrel 12. Overweight; with BMI of 26 this admission - Weight loss will be recommended. 13. Chronic anemia - Stable with hemoglobin of 10.1 g/dL and MCV of 89.3 fL present on admission. Hemoglobin 9.3. Does not show significant drop or meet criteria for acute anemia 14. Chronic degenerative arthritis, give acetaminophen prn pain or fever DVT prophylaxis - Patient already on apixaban for #2 which will be continued. Laboratory Results Microbiology Past 72 Hours 03/06/25 18:40 Urine, Clean Catch Urine Culture - Preliminary Culture exhibits no growth. Laboratory Results 03/06/25 16:55: POC Glucose 117 H 03/06/25 22:29: POC Glucose 146 H 03/07/25 05:20: Sodium 134, Potassium 4.8, Chloride 97 L, Carbon Dioxide 26.3, Anion Gap 10, BUN 56 H, Creatinine 3.09 H, Estim Creat Clear Calc 17.21 L, Est GFR (MDRD) Non-Af 20 L, BUN/Creatinine Ratio 18.2, Glucose 126 H, Calcium 8.7 03/07/25 06:13: POC Glucose 127 H 03/07/25 11:59: POC Glucose 184 H Clinical Impression(s) from Imaging Studies Chest X-Ray 03/04/25 14:59 IMPRESSION: Cardiomegaly and CHF with small right pleural effusion and bibasilar atelectasis worse at the right lung base. Reading Location: [facility] Echocardiogram 03/04/25 20:08 Interpretation Summary Moderate concentric left ventricular hypertrophy. The LV ejection fraction is 55 %. Stage 1 diastolic dysfunction. The left atrium is severely enlarged. Severe mitral valve annular calcification. Moderate posteriorly directed mitral valve regurgitation. Moderate tricuspid valve regurgitation. Estimated pulmonary artery systolic pressure 42 mmHg. Mild (1+) pulmonic valve insufficiency. The study was technically difficult. Ordering Physician: Nicola Lindsey Referring Physician: SCOTTY ELIZALDE Performed By: Haley Stevens and Student Chest X-Ray 03/05/25 04:30 IMPRESSION: Small interval improvement in right lung base aeration. Reading Location: [place] [address] Charges/Coding Visit Charges Inpatient E&M: 11013 Subs Hosp L2
[2025-03-07] MEDS: Ipratropium 0.5 MG/2.5 ML SOLUTION INHALATION (19:33)
[2025-03-07] MEDS: Senna/Docusate Sodium 1 Tablet 2 TABLET PO (21:44)
[2025-03-08] VITALS (11 sets, daily range): BP systolic 97–138; BP diastolic 38–62; PULSE 48–96; RESP 16–24; TEMP 36.2–36.9; O2SAT 96–100
--- NOTE | 2025-03-08 05:06 | NURSING ---
bladder scanned 408ml
[2025-03-08 05:18] LABS: Anion Gap 10 (5-15); BUN 62 mg/dL (4-19); BUN/Creat Ratio 19.9 RATIO (10-20); Calcium,Total 8.8 mg/dL (7.6-11.0); Carbon Dioxide 27.0 mmol/L (21.0-32.0); Chloride 99 mmol/L (98-108); Estimated Creatinine Clearance 17.10 ml/min (50-250); Glucose 127 mg/dL (70-99); Potassium 5.3 mmol/L (3.3-5.1)
--- NOTE | 2025-03-08 05:35 | NURSING ---
400ml urine removed once imms was placed
[2025-03-08 06:44] LABS: Magnesium 2.3 mg/dL (1.5-2.2)
[2025-03-08] MEDS: Ipratropium 0.5 MG/2.5 ML SOLUTION INHALATION ×3 (07:13→20:21)
--- NOTE | 2025-03-08 08:44 | PN.HOSP_ITS ---
Reason for Visit Chief Complaint: SOB. Objective Data Objective Data Vital Signs: Vital Signs Temp Pulse Resp BP Pulse Ox O2 Del Method O2 Flow Rate 98.1 F 52 L 16 97/38 L 98 Nasal Cannula 3 03/08/25 03:50 03/08/25 07:14 03/08/25 07:14 03/08/25 03:50 03/08/25 07:14 03/08/25 07:14 03/08/25 07:14 Oxygen Flow Rate (L/min) 3 Oxygen Delivery Method Nasal Cannula Weight: 163 lb 2.273 oz Body Mass Index (BMI) 26.3 Intake & Output: Intake and Output for Last 24 Hours 03/06/25 03/07/25 03/08/25 23:59 23:59 23:59 Intake Total 430 / 430 50 / 50 Output Total 2450 / 2450 950 / 950 400 / 400 Balance -2020 / -2020 -900 / -900 -400 / -400 Medical Nutrition Assessment Dietitian: Malnutrition Criteria Met Start: 03/05/25 14:17 Freq: Status: Active Protocol: Document 03/05/25 14:17 SB (Rec: 03/05/25 14:17 SB [id number]) Nutrition Malnutrition Evidence of Yes Malnutrition Exists Malnutrition (severe Acute Illness/Injury ): Evidenced By Suboptimal Energy Intake (Severe),Weight Loss (Severe) Clinical Problem Acute Disease or Injury Related Malnutrition Etiology severe malnutrition in the context of lung cancer related to inadequate oral/energy intake Signs/Symptoms as evidenced by PO meeting <50% of estimated nutrition needs x 1 month and 10% unintentional weight loss x 2 months Status Active Problem Recommendation Dietitian Liberalize to regular, no added salt diet due to signs Recommendations/ and symptoms of malnutrition. Changes Will order 120ml glucerna shake TID with meals. Will monitor weight trends. Lab / Micro Data 03/05/25 06:08 03/08/25 09:05 Labs: Laboratory Results - last 24 hr 03/07/25 11:59: POC Glucose 184 H 03/07/25 16:56: POC Glucose 191 H 03/07/25 22:10: POC Glucose 151 H 03/08/25 04:23: Sodium 135, Potassium 5.3 H, Chloride 99, Carbon Dioxide 27.0, Anion Gap 10, BUN 62 H, Creatinine 3.11 H, Estim Creat Clear Calc 17.10 L, Est GFR (MDRD) Non-Af 19 L, BUN/Creatinine Ratio 19.9, Glucose 127 H, Calcium 8.8, M agnesium 2.3 H 03/08/25 06:35: POC Glucose 122 H Micro: Microbiology 03/06/25 18:40 Urine, Clean Catch Urine Culture - Preliminary Culture exhibits no growth. Rhythm Strip Rhythm Strip: Atrial flutter Rate: 108 Ectopy: None Physical Exam Narrative Seen and examined Shortness of breath is better. Leg edema is better. Heart rate and BP low, heart rate was low 40s and blood pressure in low 90s yesterday. Patient also sustained 11 beats of V. tach. coater operator reviewed. Still in A-fib/flutter with bradycardia. Shortness of breath is better. Patient also had urinary retention and a straight cath was placed. Again had urine retention therefore Claudio catheter was inserted. No syncope. Denies chest pain. Had CABG several years ago and coronary stent prior to that. Denies burning with urination. Had bowel movement Physical exam: General: Alert, Oriented x3, Cooperative HEENT: Atraumatic, PERRLA, EOMI, Normocephalic. Oral: No Gingival or Mucosal Lesions/ Ulcerations Neck: Supple, No JVD, Negative Carotid Bruits Chest wall/Lungs: Air entry diminished in bilateral lung bases. No crepitation/rhonchi Cardiovascular: Irregular rhythm, Normal S1,S2, systolic murmur. CABG scar Abdomen: Bowel Sounds Present, Soft, Non Tender, Non-Distended : No dysuria. No renal angle tenderness. No suprapubic tenderness. Extremities: Mild pedal edema, Capillary Refill Less than 3 Seconds Skin: No rashes, No breakdown Musculoskeletal: No Tenderness to Palpation of Joints or Extremities Neurological: Cranial nerves II-XII grossly intact, DTR 2+/4. No acute focal neurological deficit. Psych/Mental Status: Normal Affect, Appropriate. Assessment & Plan Assessment/Plan (1) CHF exacerbation: QUALIFIERS: Heart failure type: unspecified Qualified Code(s): I 50.9 - Heart failure, unspecified (2) Atrial flutter with rapid ventricular response: (3) Chronic anticoagulation: (4) Elevated troponin: (5) Hyperkalemia: (6) Pleural effusion on right: (7) Acute cystitis with hematuria: (8) Atherosclerosis of coronary artery of [place] heart without angina pectoris: QUALIFIERS: Coronary Disease-Associated Artery/Lesion type: [place] artery Qualified Code(s): I25.10 - Atherosclerotic heart disease of [place] coronary artery without angina pectoris (9) Overweight (BMI 25.0-29.9): PLAN: Plan 80-year-old gentleman on 4 L of O2 with history of lung cancer/COPD was admitted with shortness of breath for 1 day. Noted hypoxia 78 to 80% on room air on EMS. No leg swelling. No fever chest pain. Denies any change in cough. EMS vitals shows tachycardia heart rate 120/min, glucose 174, pulse ox 83%, end-tidal 30. 1. Acute exacerbation of chronic HFpEF: Patient admitted in PCU. elevated NT pro-BNP II of 3,316 pg/mL with a corresponding CXR that revealed cardiomegaly and CHF with small right pleural effusion and bibasilar atelectasis worse at the Right lung base Maintain metoprolol and lisinopril as before. 03/05: Heart failure core measures including intake and output, fluid restriction less than 1500 mL, daily weight monitoring, kidney and electrolytes monitoring. On furosemide 40 mg twice daily. Serial troponins 44, 45 and 42 therefore no significant delta change. ACS ruled out. Office Correspondent is consulted. Repeat proBNP is elevated but it does not reflect treatment response as it should not be ordered for that. Clinically patient is feeling better with improvement in shortness of breath. 2D echo 03/05 reported EF 55%, PASP 42 mmHg with moderate TR, moderate MS and mild PI. 03/06: Furosemide changed to 40 g daily. Patient is over diuresed. 03/07 hold Lasix. 03/08: Mild leg swelling. [place] wrap bandage ordered 2. EKG evidence of Atrial Flutter; with Rapid Ventricular Response of ~117 bpm even after being treated with IV Cardizem bolus probably precipitating CHF exacerbation: Patient already on apixaban patient had digoxin. TSH 3.7 normal. Twelve-lead EKG individually reviewed and shows atrial flutter 2 is to 1 conduction. Later on irregular variable conduction on picker/puller 03/06: Discussed with the rail setter. Metoprolol increased to 25 mg twice daily, Cardizem 60 mg Q6 hourly. If heart rate controlled, will switch to long- acting Cardizem CD. 03/07: Bradycardia heart rate dropped to 40s. Hold metoprolol in the morning and resume from night. Heart rate improved from 40s to 62, 76/m. Resume metoprolol from tonight. Cardizem regular changed to Cardizem CD 120 mg twice daily with holding parameters. Discussed with the patient's daughter, she was not comfortable taking home. Will try to establish heart rate. 03/08: Patient still bradycardic. Last night he had Cardizem 120 mg and heart rate in 40s and blood pressure in the 90s. Discussed with the rail setter. Advised to discontinue to discontinue metoprolol and Cardizem 30 mg Q8 hourly with holding parameters. This was informed to the patient's daughter. I also discussed about the CODE STATUS that is full code with his guarded prognosis in view of multiple cardiac disease and cardiac surgery including bypass in 2012 and aortobifemoral bypass in 2009. She noticed an old discussed with her other family member and was updated about the CODE STATUS. 3. DARIUSZ on CKD; stage IIIb with hyperkalemia, present on admission:-serum creatinine of 1.86 mg/dL, BUN of 37 mg/dL and EGFR of 36 mL/min present on admission. Treated with IV furosemide. Repeat potassium 5.0 slightly better than 5.2. His baseline creatinine runs around 2.21-2.36. Admitted with 1.87, today 1.86. 03/06: Furosemide changed to oral once daily. 03/07 creatinine jumped to 2.23, 3.09. BUN 56. Hold furosemide for next few days. Monitor kidney function tomorrow a.m. 03/08: Creatinine increased to 3.11 but patient had good urine output 900 mL yesterday and 400 mL since midnight today. Nonoliguric DARIUSZ. Patient has Claudio catheter which resulted last night. Flomax started. Urine culture shows no growth. 5. UA positive for Acute Cystitis; with microscopic hematuria:- Start IV ceftriaxone empirically. Urine culture ordered 6. CAD; s/p CABG x 3 (2012) - 7. Essential hypertension; on lisinopril and metoprolol BID - Resume home regimen plus give as needed IV hydralazine for systolic blood pressure greater than 160 mmHg. 8. Hyperlipidemia; on pravastatin - Continue statin and check lipid profile. 9. Chronic hypoxic respiratory failure on 4 L continuously: 10. 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 On sitagliptin. Accu-Chek before meals and at bedtime with Humalog sliding scale coverage and hypoglycemia protocol. 11. Peripheral artery disease with history of left lower extremity ulcer status post aortofemoral bypass graft in 2010 and chronic venous insufficiency. Continue clopidogrel 12. Overweight; with BMI of 26 this admission - Weight loss will be recommended. 13. Chronic anemia - Stable with hemoglobin of 10.1 g/dL and MCV of 89.3 fL present on admission. Hemoglobin 9.3. Does not show significant drop or meet criteria for acute anemia 14. Chronic degenerative arthritis, give acetaminophen prn pain or fever DVT prophylaxis - Patient already on apixaban for #2 which will be continued. Microbiology Past 72 Hours 03/06/25 18:40 Urine, Clean Catch Urine Culture - Preliminary Culture exhibits no growth. Laboratory Results 03/07/25 11:59: POC Glucose 184 H 03/07/25 16:56: POC Glucose 191 H 03/07/25 22:10: POC Glucose 151 H 03/08/25 04:23: Sodium 135, Potassium 5.3 H, Chloride 99, Carbon Dioxide 27.0, Anion Gap 10, BUN 62 H, Creatinine 3.11 H, Estim Creat Clear Calc 17.10 L, Est GFR (MDRD) Non-Af 19 L, BUN/Creatinine Ratio 19.9, Glucose 127 H, Calcium 8.8, M agnesium 2.3 H 03/08/25 06:35: POC Glucose 122 H 03/08/25 09:05: Potassium 5.5 H Clinical Impression(s) from Imaging Studies Chest X-Ray 03/04/25 14:59 IMPRESSION: Cardiomegaly and CHF with small right pleural effusion and bibasilar atelectasis worse at the right lung base. Reading Location: [facility] Echocardiogram 03/04/25 20:08 Interpretation Summary Moderate concentric left ventricular hypertrophy. The LV ejection fraction is 55 %. Stage 1 diastolic dysfunction. The left atrium is severely enlarged. Severe mitral valve annular calcification. Moderate posteriorly directed mitral valve regurgitation. Moderate tricuspid valve regurgitation. Estimated pulmonary artery systolic pressure 42 mmHg. Mild (1+) pulmonic valve insufficiency. The study was technically difficult. Ordering Physician: Nicola Lindsey Referring Physician: SCOTTY ELIZALDE Performed By: Haley Stevens and Student Chest X-Ray 03/05/25 04:30 IMPRESSION: Small interval improvement in right lung base aeration. Reading Location: [place] [id number] Charges/Coding Addendum Addendum: Total time of the visit including total time spent in counseling or coordination of care, (more than 50% of the total time, spent in obtaining medical information from nurses and other ancillary care providers ,explaining to the patient about labs, imaging, diagnosis and management of active complex medical conditions), multiple active cardiac issues, urinary retention discussion with rail setter and clinical update given to patient's [id number], review of labs and imaging is 35 minutes. Visit Charges Inpatient E&M: 26435 [facility] L3
--- NOTE | 2025-03-08 08:48 | PN.CARD_ITS ---
Subjective Subjective Denies any complaints. Became bradycardic with diltiazem and metoprolol. Borderline blood pressure. Objective Data Vital Signs: Vital Signs Temp Pulse Resp BP Pulse Ox O2 Del Method O2 Flow Rate 98.1 F 52 L 16 97/38 L 98 Nasal Cannula 3 03/08/25 03:50 03/08/25 07:14 03/08/25 07:14 03/08/25 03:50 03/08/25 07:14 03/08/25 07:14 03/08/25 07:14 Oxygen Flow Rate (L/min) 3 Oxygen Delivery Method Nasal Cannula Weight: 163 lb 2.273 oz Body Mass Index (BMI) 26.3 Intake & Output: Intake and Output for Last 24 Hours 03/06/25 03/07/25 03/08/25 23:59 23:59 23:59 Intake Total 430 / 430 50 / 50 Output Total 2450 / 2450 950 / 950 400 / 400 Balance -2020 / -2020 -900 / -900 -400 / -400 Lab / Micro Data 03/05/25 06:08 03/08/25 04:23 Labs: Laboratory Results - last 24 hr 03/07/25 11:59: POC Glucose 184 H 03/07/25 16:56: POC Glucose 191 H 03/07/25 22:10: POC Glucose 151 H 03/08/25 04:23: Sodium 135, Potassium 5.3 H, Chloride 99, Carbon Dioxide 27.0, Anion Gap 10, BUN 62 H, Creatinine 3.11 H, Estim Creat Clear Calc 17.10 L, Est GFR (MDRD) Non-Af 19 L, BUN/Creatinine Ratio 19.9, Glucose 127 H, Calcium 8.8, M agnesium 2.3 H 03/08/25 06:35: POC Glucose 122 H Micro: Microbiology 03/06/25 18:40 Urine, Clean Catch Urine Culture - Preliminary Culture exhibits no growth. Rhythm Strip Rhythm Strip: Atrial flutter Rate: 108 Ectopy: None Cardiology Labs/Tests 03/08/25 04:23: Sodium 135, Potassium 5.3 H, Chloride 99, Carbon Dioxide 27.0, Anion Gap 10, BUN 62 H, Creatinine 3.11 H, Est GFR (MDRD) Non-Af 19 L, BUN/Creatinine Ratio 19.9, Glucose 127 H, Calcium 8.8, Magnesium 2.3 H Rhythm: EKG: ECHO: Stress Test: Cardiac Cath: PCI: CT Surgery: Holter monitor: EPS: PPM: CXR: Chest CT Scan: Physical Exam Narrative Comfortable. No apparent distress. Heart sounds 1 and 2 noted. Tachycardic. Chest clear to auscultation bilaterally. Alert oriented x 3. Trace bilateral ankle edema. Assessment & Plan Assessment/Plan (1) Atrial flutter with rapid ventricular response: PLAN: Sick sinus syndrome. Bradycardic with to 240 mg of diltiazem and 25 twice daily of metoprolol. DC metoprolol. Decrease diltiazem to 30 mg every 6 hours. (2) Acute on chronic diastolic congestive heart failure: PLAN: Continue furosemide. Changed to 40 mg daily. Monitor electrolytes. (3) Coronary artery disease: PLAN: History of CABG. Continue beta-blockers. Statins. On apixaban. Recommend pharmacological stress test as outpatient. (4) Mitral valve regurgitation: PLAN: Furosemide. ACEI. (5) Tricuspid valve regurgitation: PLAN: Furosemide. (6) Hypertension: QUALIFIERS: Hypertension type: essential hypertension Qualified Code(s): I10 - Essential (primary) hypertension PLAN: Blood pressure borderline. DC metoprolol. Furosemide being held for acute renal insufficiency. DC lisinopril. (7) Diabetes: PLAN: As per internal medicine. (8) Peripheral arterial disease: PLAN: Follows with vascular surgery. On clopidogrel.
[2025-03-08] MEDS: Senna/Docusate Sodium 1 Tablet 2 TABLET PO (09:20)
[2025-03-08] MEDS: APIXABAN 5 MG TABLET PO ×2 (09:21→21:26)
[2025-03-08 09:26] LABS: Potassium 5.5 mmol/L (3.3-5.1)
[2025-03-09 05:00] VITALS: BMI 28.0
[2025-03-09 05:15] VITALS: BP 119/43; PULSE 95; RESP 17; TEMP 36.6; O2SAT 97
[2025-03-09] MEDS: Ipratropium 0.5 MG/2.5 ML SOLUTION INHALATION (06:50)
[2025-03-09 06:51] VITALS: PULSE 90; RESP 18; O2SAT 93
[2025-03-09 08:42] LABS: Hematocrit 29.6 % (40-54); Hemoglobin 9.3 g/dL (13.0-16.5); Immature Granulocytes Count 0.030 X10^3/uL (0.0-0.0); Mean Corp Hgb Conc 31.4 g/dL (32-36); Mean Corpuscular Volume 87.6 fL (80-94); Mean Platelet Vol. 10.0 fl (6.2-12.0); NRBC Flagged by Analyzer 0 % (0-5); POSITIVE DIFFERENTIAL YES; Platelet Count 162 K/mm3 (150-450); RBC Distribution Width CV 16.3 % (11.6-14.6); RBC Distribution Width SD 51.8 fl (35.1-43.9); Red Blood Count 3.38 M/mm3 (4.6-6.2); White Blood Count 5.5 K/mm3 (4.4-11.0)
[2025-03-09] MEDS: Insulin Glargine-YFGN 100 UNIT/ML Pen 30 UNIT SC (08:45)
[2025-03-09] MEDS: APIXABAN 2.5 MG TABLET (WCH) PO (08:48)
--- NOTE | 2025-03-09 08:53 | CASEMGMT ---
Discharge Planning A list of?SNF providers including quality and resource use data and consistent with the patient's preferred geographic region, medical needs, and insurance network was created in [employer] Guide.? This list was provided to the SW. Carly Salmon Discharge Planning Asst.
--- NOTE | 2025-03-09 09:43 | PCM.PN.CARD ---
Subjective Subjective Patient evaluated in a seated position in the chair. Telemetry shows that he is in atrial fibrillation with a controlled ventricular response of 70-95 bpm. The patient's Eliquis will be decreased to 2.5 mg twice daily due to his creatinine of 3.1 and his age of 80. It appears he is tolerating the diltiazem 30 mg every 8 hours. Objective Data Vital Signs: Vital Signs Temp Pulse Resp BP Pulse Ox O2 Del Method O2 Flow Rate 97.9 F 90 18 119/43 L 93 Nasal Cannula 2 03/09/25 05:15 03/09/25 06:51 03/09/25 06:51 03/09/25 05:15 03/09/25 06:51 03/09/25 06:51 03/09/25 06:51 Oxygen Flow Rate (L/min) 2 Oxygen Delivery Method Nasal Cannula Weight: 173 lb 11.588 oz Body Mass Index (BMI) 28.0 Intake & Output: Intake and Output for Last 24 Hours 03/07/25 03/08/25 03/09/25 23:59 23:59 23:59 Intake Total 50 / 50 600 / 600 60 / 60 Output Total 950 / 950 1625 / 1625 350 / 350 Balance -900 / -900 -1025 / -1025 -290 / -290 Lab / Micro Data Attestation: I reviewed the patient's lab results. 03/09/25 08:21 03/08/25 09:05 Labs: Laboratory Results - last 24 hr 03/08/25 12:20: POC Glucose 128 H 03/08/25 16:33: POC Glucose 142 H 03/08/25 21:23: POC Glucose 132 H 03/09/25 06:22: POC Glucose 112 H 03/09/25 08:21: WBC 5.5, RBC 3.38 L, Hgb 9.3 L, Hct 29.6 L, MCV 87.6, MCH 27.5, MCHC 31.4 L, RDW Std Deviation 51.8 H, RDW Coeff of Reggie 16.3 H, Plt Count 162, MPV 10.0, Immature Gran % (Auto) 0.600, Neut % (Auto) 72.6 H, Lymph % (Auto) 9.7 L, Rhea % (Auto) 12.1 H, Eos % (Auto) 4.8, Baso % (Auto) 0.2, Absolute Neuts (auto) 4.0, Absolute Lymphs (auto) 0.53 L, Nucleated RBC % 0 Micro: Microbiology 03/06/25 18:40 Urine, Clean Catch Urine Culture - Final Culture exhibits no growth. Rhythm Strip Rhythm Strip: A-fib Rate: 90 Ectopy: None Cardiology Labs/Tests 03/09/25 08:21: WBC 5.5, RBC 3.38 L, Hgb 9.3 L, Hct 29.6 L, MCV 87.6, MCH 27.5, MCHC 31.4 L, Plt Count 162, MPV 10.0, Immature Gran % (Auto) 0.600, Neut % (Auto) 72.6 H, Lymph % (Auto) 9.7 L, Rhea % (Auto) 12.1 H, Eos % (Auto) 4.8, Baso % (Auto) 0.2, Absolute Neuts (auto) 4.0, Nucleated RBC % 0 Rhythm: EKG: ECHO: Stress Test: Cardiac Cath: PCI: CT Surgery: Holter monitor: EPS: PPM: CXR: Chest CT Scan: Physical Exam Const alert and oriented x3 Constitutional Narrative: Slow to answer questions and not sure who his physicians are. HEENT normocephalic Eyes EOMs intact bilaterally Neck no JVD Chest inspection of chest normal Resp normal respiratory effort Auscultation: diminished lung sounds bilateral lower Cardio Rate: regular rate Rhythm: abnormal rhythm irregularly irregular Heart Sounds: S1 normal and S2 normal; Negative for click, gallop or murmur Extremity no pedal edema Neuro Neuro Narrative: Alert and oriented x 3 Psych cooperative Psych Narrative: Slow to answer questions Assessment & Plan Assessment/Plan (1) Other persistent atrial fibrillation: PLAN: Patient is currently in atrial fibrillation telemetry shows heart rate 70-95 bpm mostly in the 90 bpm range. He became bradycardic on the combination diltiazem and metoprolol. He is now well-controlled on diltiazem 30 mg every 8 hours. I would recommend changing this to Cardizem CD 120 mg once a day in the morning. The patient's Eliquis will be decreased to 2.5 mg twice daily given his creatinine of 3.1 and his age of 80. Echocardiogram done March 05, 2025 showed severe left atrial enlargement and EF of 55% moderate mitral regurgitation. From a cardiovascular standpoint the patient could be discharged to home or extended care facility which ever is felt to be most appropriate for his general medical care. (2) Coronary artery disease: QUALIFIERS: Coronary Disease-Associated Artery/Lesion type: [place] artery [place] vs. transplanted heart: [place] heart Associated angina: without angina Qualified Code(s): I25.10 - Atherosclerotic heart disease of [place] coronary artery without angina pectoris PLAN: Patient carries a history of bypass graft surgery followed in the [facility]. The patient should be reevaluated in 2 to 4 weeks in the [facility] with advanced practitioner. Given the patient's recovery and his overall general medical situation consideration may be given for to perform a pharmacologic nuclear stress test following that visit. The patient will be continued on rate control and oral anticoagulation as tolerated for his atrial fibs. (3) Chronic anticoagulation: PLAN: Long-term oral anticoagulation with Eliquis 2.5 mg twice daily. Age is 80 and creatinine is 3.1. PLAN: Plan 1. Switch Cardizem to CD1 120 mg daily. 2. Continue Eliquis 2.5 mg twice daily. 3. At discharge patient should follow-up with the [facility] advanced practitioner in 2 to 3 weeks. 4. If further assistance is needed please reconsult the [facility] [facility]. Charges/Coding Visit Charges Inpatient E&M: 15405 [facility]
[2025-03-09 09:48] LABS: Anion Gap 10 (5-15); BUN 50 mg/dL (4-19); BUN/Creat Ratio 20.8 RATIO (10-20); Calcium,Total 9.0 mg/dL (7.6-11.0); Carbon Dioxide 26.6 mmol/L (21.0-32.0); Chloride 101 mmol/L (98-108); Estimated Creatinine Clearance 24.14 ml/min (50-250); Glucose 118 mg/dL (70-99); Potassium 4.3 mmol/L (3.3-5.1)
[2025-03-09 10:00] VITALS: BP 129/51; PULSE 97; RESP 20; TEMP 36.9; O2SAT 94
--- NOTE | 2025-03-09 10:31 | DCINST_ITS ---
Discharge Instructions DC O2, CPAP, BIPAP needs Home O2 Discharge instructions: Yes Type of respiratory needs?: Oxygen Oxygen frequency: Continuous Continuous oxygen liters per minute: 2 Dressing / Incision Discharge Activity: Return to Normal Activity Weight Bearing Status: Weight bearing as tolerated Dressing / Incision Call your doctor if you observe: Fever of 101 or Higher, Coldness, Increased Isatu n, Numbness or Tingling, Change in Color, Inability to urinate, Inability to have a bowel movement, Shortness of breath, Dizziness, Fainting spells, Swelling in the ankles, Chest pain, Prolonged hiccupping, Increased palpitations (irregular heartbeat) and Calf discomfort Follow Up Care When: IN 2 WEEKS Test Results: Test results from this visit will be discussed in further detail at your follow- up appointment, if applicable. Discharge Plan Admission Admit Date/Time: 03/04/25 19:57 Attending Provider: Deric Lantigua Primary Care Provider: Luis Johnson Consulting Providers: Nicola Lindsey; Paris Tiwari; Susan Hawley; Nicolette Mcdonald; Marjorie Green; Martin Vivas; Jose Lai; Issa Looney; Chago Miller; Willian Glaser; Orly Mitchell; Reinaldo Mclain; Santos Hsu; Iker Rodriguez NP; Leslie Arriaga PA; Tadeo Thakkar Discharge Orders/Prescriptions Prescriptions: New diltiazem HCl 120 mg Capsule,Extended Release 24hr 120 mg PO DAILY 30 Days Qty: 30 2RF Eliquis 5 mg Tablet 2.5 mg PO BID 30 Days Qty: 30 3RF Continued multivitamin [Daily Multi-Vitamin] Tablet 1 tab PO DAILY pravastatin 20 mg tablet 20 mg PO DAILY docusate sodium [Colace] 100 mg capsule 100 mg PO DAILY PRN (Reason: stool softn) cranberry 500 mg capsule 500 mg PO DAILY Rx Instructions: administer with meals albuterol sulfate 90 mcg/actuation HFA aerosol inhaler 2 puff inhalation Q4H PRN (Reason: shortness of breath or wheezing) Qty: 3 3RF Rx Instructions: administer with spacer umeclidinium-vilanterol [Anoro Ellipta] 62.5-25 mcg/actuation blister with device 1 inh inhalation QDAY Qty: 60 3RF insulin glargine 100 UNIT/ML solution 30 unit SQ DAILY guaifenesin 1,200 mg tablet extended release 12hr 1,200 mg PO Q12H 7 Days Qty: 14 6RF clopidogrel [Plavix] 75 mg tablet 75 mg PO DAILY Qty: 90 3RF Held Januvia 50 mg Tablet 50 mg PO DAILY Hold Instructions: Hold for at least 2 weeks until kidney function returns to baseline. Follow with PCP Discontinued metoprolol tartrate 25 mg tablet 12.5 mg PO BID Qty: 45 7RF Eliquis 5 mg tablet 5 mg PO BID Qty: 180 3RF lisinopril 2.5 mg tablet 2.5 mg PO DAILY Qty: 90 3RF Referrals / Follow Up: Issa Looney MD [Med Staff - Active Staff] - Within 1 Month (Follow-up to evaluate for atrial flutter, tachybradycardia syndrome) Davon Saravia MD [Med Staff - Consulting] - Within 1 Month (For DARIUSZ on CKD) Luis Johnson DO [Primary Care Provider] - Leslie Arriaga PA [Med Staff - Adv Practice Prof] - Within 2 Weeks Disposition Disposition (needs filled in before D/C Order can be placed): Home, Self Care
[2025-03-09 11:48] VITALS: O2SAT 79
--- NOTE | 2025-03-09 11:51 | CASEMGMT ---
Addendum entered by Sera Dukes 03/09/25 12:09: Social Work SW spoke w/Alexus from [facility], they can take pt with a start of care on Sunday. SW/SYLWIA to let pt and daughter in law Richter know when she is here later today. DICK Cameron Original Note: Social Work SW spoke w/PT and OT, they state that pt is moving better than his baseline, and should be okay to return home. SW spoke w/pt, he would prefer to go home rather than go to a rehab facility, and states he can manage at home. SW explained the physician had spoken to his daughter in law Neelam, who SW understands is his POA. Pt confirms this. SW stated to pt she had said to physician that she thought pt needed rehab. Pt states this was only if pt needed a pacemaker, and pt states he does not need a pacemaker right now. He plans to return home. SW inquired if pt would be agreeable to home health for home therapy, pt is agreeable to this. He does not have a preference for agency, deferred to his daughter in law Richter and is fine w/SW calling her. SW called Neelam, spoke w/her regarding discharge plan. She states understanding that pt does not want to go for rehab. However she states that she is not there a lot and pt needs to be independent, she worries he will fall. SW offered support. SW explained that therapy is not recommending pt go somewhere for rehab at this time, he is walking better than how he normally walks at home. We spoke about home health, and Neelam asked about private hire through [place]. VIJAY educated daughter on home health through insurance vs private hire aides. VIJAY did create in [facility] a list of snf facilities, in network w/pt's insurance, in pt's preferred geographic area and complete w/quality and resource use data. Neelam does not need this at this time, would like a referral to [facility]. VIJAY also explained can provide a list of private hire aide agencies and will give to pt or can email to her. She states she will be here later today so can get list from the pt. SW let Neelam know to ask for SW or CM when she is here later, and we can also update her on the referral to [facility], daughter states understanding. SW called [facility], referral made, order placed. SW spoke w/pt, explained referral made to [facility], SW also gave pt the list of private hire aide agencies should it be needed. Pt states understanding. SW/CM will continue to follow. DICK Cameron
[2025-03-09 12:44] VITALS: O2SAT 79; O2SAT 94; O2SAT 97
--- NOTE | 2025-03-09 12:51 | DS.PCM_ITS ---
Providers Date of Admission: 03/04/25 Date of Discharge: 03/09/25 Primary Care Physician: Dr. Luis Johnson, DO Consultations 03/04/25 21:21 Consult: Cardiology Routine Consulting Provider: [facility] Reason for Consult: AE CHF, a flutter with RVR and elevated troponin. EMERGENT Consult: No MD Notified: Yes Date Notified: 03/05/25 Time Notified: :17 Method of Notification: Text Method of Consult:: In-Person Reason For Visit: AE CHF, ATRIAL FLUTTER; WITH RVR AND ELEVATED Diagnosis Discharge Diagnosis (1) Other persistent atrial fibrillation: Status: Acute Code(s): I48.19 - Other persistent atrial fibrillation (2) Coronary artery disease: Status: Acute Code(s): I25.10 - Atherosclerotic heart disease of [place] coronary artery without angina pectoris Qualifiers: Coronary Disease-Associated Artery/Lesion type: [place] artery [place] vs. transplanted heart: [place] heart Associated angina: without angina Q ualified Code(s): I25.10 - Atherosclerotic heart disease of [place] coronary artery without angina pectoris (3) Chronic anticoagulation: Status: Acute Code(s): Z79.01 - environmental conservation officer (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 of anticoagulants Plan 80-year-old gentleman on 4 L of O2 with history of lung cancer/COPD was admitted with shortness of breath for 1 day. Noted hypoxia 78 to 80% on room air on EMS. No leg swelling. No fever chest pain. Denies any change in cough. EMS vitals shows tachycardia heart rate 120/min, glucose 174, pulse ox 83%, end-tidal 30. 1. Acute exacerbation of chronic HFpEF: Patient admitted in PCU. elevated NT pro-BNP II of 3,316 pg/mL with a corresponding CXR that revealed cardiomegaly and CHF with small right pleural effusion and bibasilar atelectasis worse at the Right lung base Maintain metoprolol and lisinopril as before. 03/05: Heart failure core measures including intake and output, fluid restriction less than 1500 mL, daily weight monitoring, kidney and electrolytes monitoring. On furosemide 40 mg twice daily. Serial troponins 44, 45 and 42 therefore no significant delta change. ACS ruled out. Hoisting Engineer Pile Driving is consulted. Repeat proBNP is elevated but it does not reflect treatment response as it should not be ordered for that. Clinically patient is feeling better with improvement in shortness of breath. 2D echo 03/05 reported EF 55%, PASP 42 mmHg with moderate TR, moderate DE and mild PI. 03/06: Furosemide changed to 40 g daily. Patient is over diuresed. 03/07 hold Lasix. 03/08: Mild leg swelling. [place] wrap bandage ordered 03/09: Continue [place] wrap bandage at home. 2. EKG evidence of Atrial Flutter; with Rapid Ventricular Response of ~117 bpm even after being treated with IV Cardizem bolus probably precipitating CHF exacerbation: Patient already on apixaban patient had digoxin. TSH 3.7 normal. Twelve-lead EKG individually reviewed and shows atrial flutter 2 is to 1 conduction. Later on irregular variable conduction on telemetry monitor 03/06: Discussed with the lead accountant. Metoprolol increased to 25 mg twice daily, Cardizem 60 mg Q6 hourly. If heart rate controlled, will switch to long- acting Cardizem CD. 03/07: Bradycardia heart rate dropped to 40s. Hold metoprolol in the morning and resume from night. Heart rate improved from 40s to 62, 76/m. Resume metoprolol from tonight. Cardizem regular changed to Cardizem CD 120 mg twice daily with holding parameters. Discussed with the patient's daughter, she was not comfortable taking home. Will try to establish heart rate. 03/08: Patient still bradycardic. Last night he had Cardizem 120 mg and heart rate in 40s and blood pressure in the 90s. Discussed with the lead accountant. Advised to discontinue to discontinue metoprolol and Cardizem 30 mg Q8 hourly with holding parameters. This was informed to the patient's daughter. I also discussed about the CODE STATUS that is full code with his guarded prognosis in view of multiple cardiac disease and cardiac surgery including bypass in 2012 and aortobifemoral bypass in 2009. She noticed an old discussed with her other family member and was updated about the CODE STATUS. 03/09: Discussed with the lead accountant.Patient heart rate controlled in 70s. Yesterday rate was in 80s. Patient tolerated Cardizem 30 mg every 8 hourly therefore discharged on Cardizem CD 120 mg. I called patient's [id number] and explained the medication. Hoisting Engineer Pile Driving felt probably does not need even pacemaker. Advised to follow-up with Leslie Arriaga in [address] Looney for further opinion. Patient might have sinus node dysfunction/tachybradycardia syndrome. 3. DARIUSZ on CKD; stage IIIb with hyperkalemia, present on admission:-serum creatinine of 1.86 mg/dL, BUN of 37 mg/dL and EGFR of 36 mL/min present on admission. Treated with IV furosemide. Repeat potassium 5.0 slightly better than 5.2. His baseline creatinine runs around 2.21-2.36. Admitted with 1.87, today 1.86. 03/06: Furosemide changed to oral once daily. 03/07 creatinine jumped to 2.23, 3.09. BUN 56. Hold furosemide for next few days. Monitor kidney function tomorrow a.m. 03/08: Creatinine increased to 3.11 but patient had good urine output 900 mL yesterday and 400 mL since midnight today. Nonoliguric DARIUSZ. Patient has Claudio catheter which resulted last night. Flomax started. Urine culture shows no growth. 03/09: Creatinine is improving. Hold nephrotoxic medication. Hold home medication, Januvia as it is excreted by kidney. Patient discharged with Claudio catheter. Prescription given for Flomax. Follow-up in urology office 5. UA positive for Acute Cystitis; with microscopic hematuria:- Start IV ceftriaxone empirically. Urine culture ordered 6. CAD; s/p CABG x 3 (2012) - 7. Essential hypertension; on lisinopril and metoprolol BID - Resume home regimen plus give as needed IV hydralazine for systolic blood pressure greater than 160 mmHg. 8. Hyperlipidemia; on pravastatin - Continue statin and check lipid profile. 9. Chronic hypoxic respiratory failure on 4 L continuously: 10. 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 On sitagliptin. Accu-Chek before meals and at bedtime with Humalog sliding scale coverage and hypoglycemia protocol. 03/09 glucoses controlled 118. A1c 6.3%. 11. Peripheral artery disease with history of left lower extremity ulcer status post aortofemoral bypass graft in 2009 and chronic venous insufficiency. Continue clopidogrel 12. Overweight; with BMI of 26 this admission - Weight loss will be recommended. 13. Chronic anemia - Stable with hemoglobin of 10.1 g/dL and MCV of 89.3 fL present on admission. Hemoglobin 9.3. Does not show significant drop or meet criteria for acute anemia 14. Chronic degenerative arthritis, give acetaminophen prn pain or fever DVT prophylaxis - Patient already on apixaban for #2 which will be continued. Discharge medication reconciliation done. Discharge follow-up instructions completed. Discharge process discussed with the patient and all questions were answered to patient's satisfaction. Follow with PCP in 1 to 2 weeks Total time spent, exact 35 minutes on discharge meds reconciliation, examination, coordination of care with nurses and ancillary staff, review of imaging and blood test and discussion with the patient on follow-up instructions. Clinical Impression(s) from Imaging Studies Chest X-Ray 03/04/25 14:59 IMPRESSION: Cardiomegaly and CHF with small right pleural effusion and bibasilar atelectasis worse at the right lung base. Reading Location: [facility]--1 Echocardiogram 03/04/25 20:08 Interpretation Summary Moderate concentric left ventricular hypertrophy. The LV ejection fraction is 55 %. Stage 1 diastolic dysfunction. The left atrium is severely enlarged. Severe mitral valve annular calcification. Moderate posteriorly directed mitral valve regurgitation. Moderate tricuspid valve regurgitation. Estimated pulmonary artery systolic pressure 42 mmHg. Mild (1+) pulmonic valve insufficiency. The study was technically difficult. Ordering Physician: Nicola Lindsey Referring Physician: SCOTTY ELIZALDE Performed By: Haley Stevens and Student Chest X-Ray 03/05/25 04:30 IMPRESSION: Small interval improvement in right lung base aeration. Reading Location: [place] [address] Medications at Discharge Home Medications insulin glargine 100 unit/mL subcutaneous solution 30 unit SQ DAILY diabetes 11/19/19 multivitamin (Daily Multi-Vitamin tablet) 1 tab PO DAILY supplement 06/28/20 sitagliptin phosphate 50 mg tablet (Januvia) 50 mg PO DAILY diabetes 11/02/21 Held on 03/09/25. Instructions: Hold for at least 2 weeks until kidney function returns to baseline. Follow with PCP pravastatin 20 mg tablet 20 mg PO DAILY hyperlipidemia 01/17/22 cranberry 500 mg capsule 500 mg PO DAILY supplement 07/25/23 docusate sodium 100 mg capsule (Colace) 100 mg PO DAILY PRN stool softn 07/25/23 albuterol sulfate 90 mcg/actuation aerosol inhaler 2 puff inhalation Q4H PRN shortness of breath or wheezing #3 device 10/23/24 umeclidinium 62.5 mcg-vilanterol 25 mcg/actuation powdr for inhalation (Anoro Ellipta) 1 inh inhalation QDAY copd #60 ea 10/23/24 clopidogrel 75 mg tablet (Plavix) 75 mg PO DAILY atrial fibrillation #90 tabs 11/11/24 apixaban 5 mg tablet (Eliquis) 2.5 mg (1/2 x 5 mg) PO BID 30 days #30 tabs 03/09/25 diltiazem HCl 120 mg capsule,extended release 24 hr 120 mg PO DAILY 30 days #30 caps 03/09/25 guaifenesin 1,200 mg tablet, extended release 12 hr 1,200 mg PO Q12H 7 days #14 tabs 03/09/25 tamsulosin 0.4 mg capsule 0.4 mg PO DAILY@1730 30 days #30 caps 03/09/25 Physical Exam Narrative Seen and examined Shortness of breath is better. Leg edema is better. Cough is better. Heart rate is controlled, in atrial flutter, heart rate in 70s Patient also had urinary retention and a straight cath was placed. Discharged with a Claudio catheter. No syncope. Denies chest pain. Had CABG several years ago and coronary stent prior to that. Denies burning with urination. Had bowel movement Physical exam: General: Alert, Oriented x3, Cooperative HEENT: Atraumatic, PERRLA, EOMI, Normocephalic. Oral: No Gingival or Mucosal Lesions/ Ulcerations Neck: Supple, No JVD, Negative Carotid Bruits Chest wall/Lungs: Air entry diminished in bilateral lung bases. No crepitation/rhonchi Cardiovascular: Irregular rhythm, Normal S1,S2, systolic murmur. CABG scar Abdomen: Bowel Sounds Present, Soft, Non Tender, Non-Distended : Claudio catheter. No renal angle tenderness. No suprapubic tenderness. Extremities: Mild pedal edema, Capillary Refill Less than 3 Seconds Skin: No rashes, No breakdown Musculoskeletal: No Tenderness to Palpation of Joints or Extremities Neurological: Cranial nerves II-XII grossly intact, DTR 2+/4. No acute focal neurological deficit. Psych/Mental Status: Normal Affect, Appropriate. Medical Records Data Medical Nutrition Assessment Dietitian: Malnutrition Criteria Met Start: 03/05/25 14:17 Freq: Status: Active Protocol: Document 03/05/25 14:17 SB (Rec: 03/05/25 14:17 SB [id number]) Nutrition Malnutrition Evidence of Yes Malnutrition Exists Malnutrition (severe Acute Illness/Injury ): Evidenced By Suboptimal Energy Intake (Severe),Weight Loss (Severe) Clinical Problem Acute Disease or Injury Related Malnutrition Etiology severe malnutrition in the context of lung cancer related to inadequate oral/energy intake Signs/Symptoms as evidenced by PO meeting <50% of estimated nutrition needs x 1 month and 10% unintentional weight loss x 2 months Status Active Problem Recommendation Dietitian Liberalize to regular, no added salt diet due to signs Recommendations/ and symptoms of malnutrition. Changes Will order 120ml glucerna shake TID with meals. Will monitor weight trends. Weight / BMI Weight Weight: 173 lb 11.588 oz Body Mass Index (BMI) 28.0 ABG / Lab / Microbiology Data 03/09/25 08:21 03/09/25 08:21 Laboratory: Laboratory Results - last 24 hr 03/08/25 12:20: POC Glucose 128 H 03/08/25 16:33: POC Glucose 142 H 03/08/25 21:23: POC Glucose 132 H 03/09/25 06:22: POC Glucose 112 H 03/09/25 08:21: WBC 5.5, RBC 3.38 L, Hgb 9.3 L, Hct 29.6 L, MCV 87.6, MCH 27.5, MCHC 31.4 L, RDW Std Deviation 51.8 H, RDW Coeff of Reggie 16.3 H, Plt Count 162, MPV 10.0, Immature Gran % (Auto) 0.600, Neut % (Auto) 72.6 H, Lymph % (Auto) 9.7 L, [place] % (Auto) 12.1 H, Eos % (Auto) 4.8, Baso % (Auto) 0.2, Absolute Neuts (auto) 4.0, Absolute Lymphs (auto) 0.53 L, Nucleated RBC % 0, Sodium 138, Potassium 4.3, Chloride 101, Carbon Dioxide 26.6, Anion Gap 10, BUN 50 H, C reatinine 2.41 H, Estim Creat Clear Calc 24.14 L, Est GFR (MDRD) Non-Af 26 L, B UN/Creatinine Ratio 20.8 H, Glucose 118 H, Calcium 9.0 03/09/25 11:43: POC Glucose 184 H Microbiology: Microbiology 03/06/25 18:40 Urine, Clean Catch Urine Culture - Final Culture exhibits no growth. D/C Instructions Weight Bearing Status: Weight bearing as tolerated Call your doctor if you observe: Fever of 101 or Higher, Coldness, Increased Pain, Numbness or Tingling, Change in Color, Inability to urinate, Inability to have a bowel movement, Shortness of breath, Dizziness, Fainting spells, Swelling in the ankles, Chest pain, Prolonged hiccupping, Increased palpitations (irregular heartbeat) and Calf discomfort DC O2, CPAP, BIPAP Needs Home O2 Discharge instructions: Yes Type of respiratory needs?: Oxygen Oxygen frequency: Continuous Continuous oxygen liters per minute: 2 DC home with Oxygen: Yes Home O2 MD Review: I have reviewed the oxygen testing, and the patient qualifies for home oxygen equipment and portability. The patient is mobile in the home and the community. When: IN 2 WEEKS Meaningful Use Info Meaningful Use Meaningful Use Diagnoses (Choose all that apply): None applicable Discharge Plan Admission Admit Date/Time: 03/04/25 19:57 Primary Reason for Your Visit: Atrial flutter with RVR/tachybradycardia syndrome, CHF exacerbation Attending Provider: Deric Lantigua Primary Care Provider: Luis Johnson Consulting Providers: Nicola Lindsey; Paris Tiwari; Susan Hawley; Nicolette Mcdonald; Marjorie Green; Martin Vivas; Jose Lai; Issa Looney; Chago Miller; Willian Glaser; Orly Mitchell; Reinaldo Mclain; Santos Hsu; Iker Rodriguez INDUSTRIAL RENDERER; Leslie Arriaga PA; Tadeo Thakkar Instructions Additional Instructions / Restrictions: Discharge with Claudio catheter. Discharge Orders/Prescriptions Prescriptions: New diltiazem HCl 120 mg Capsule,Extended Release 24hr 120 mg PO DAILY 30 Days Qty: 30 2RF Eliquis 5 mg Tablet 2.5 mg PO BID 30 Days Qty: 30 3RF tamsulosin 0.4 mg Capsule 0.4 mg PO DAILY@1730 30 Days Qty: 30 2RF Continued multivitamin [Daily Multi-Vitamin] Tablet 1 tab PO DAILY pravastatin 20 mg tablet 20 mg PO DAILY docusate sodium [Colace] 100 mg capsule 100 mg PO DAILY PRN (Reason: stool softn) cranberry 500 mg capsule 500 mg PO DAILY Rx Instructions: administer with meals albuterol sulfate 90 mcg/actuation HFA aerosol inhaler 2 puff inhalation Q4H PRN (Reason: shortness of breath or wheezing) Qty: 3 3RF Rx Instructions: administer with spacer umeclidinium-vilanterol [Anoro Ellipta] 62.5-25 mcg/actuation blister with device 1 inh inhalation QDAY Qty: 60 3RF insulin glargine 100 UNIT/ML solution 30 unit SQ DAILY guaifenesin 1,200 mg tablet extended release 12hr 1,200 mg PO Q12H 7 Days Qty: 14 6RF clopidogrel [Plavix] 75 mg tablet 75 mg PO DAILY Qty: 90 3RF Held Januvia 50 mg Tablet 50 mg PO DAILY Hold Instructions: Hold for at least 2 weeks until kidney function returns to baseline. Follow with PCP Discontinued metoprolol tartrate 25 mg tablet 12.5 mg PO BID Qty: 45 7RF Eliquis 5 mg tablet 5 mg PO BID Qty: 180 3RF lisinopril 2.5 mg tablet 2.5 mg PO DAILY Qty: 90 3RF Referrals / Follow Up: Issa Looney MD [Med Staff - Active Staff] - Within 1 Month (Follow-up to evaluate for atrial flutter, tachybradycardia syndrome) Davon Saravia MD [Med Staff - Consulting] - Within 1 Month (For DARIUSZ on CKD) Luis Johnson DO [Primary Care Provider] - Leslie Arriaga PA [Med Staff - Adv Practice Prof] - Within 2 Weeks Rodolfo Rob MD [Med Staff - Active Staff] - Within 1 Week (Discharged with Claudio catheter.) Disposition Disposition (needs filled in before D/C Order can be placed): Home, Self Care Charges/Coding Visit Charges Inpatient E&M: 19718 Disch Hosp >30min
--- NOTE | 2025-03-09 14:32 | CASEMGMT ---
Addendum entered by Lisa Jovel 03/09/25 14:39: KHURRAM DAO in to patient's room to update patient and DIL Neelam regarding increase in home oxygen and [facility] and start of care. Patient and daughter had no further questions or concerns. Original Note: Patient requires increase in home oxygen, script received and updated script sent to [facility]. KHURRAM DAO updated discharge plan.
--- NOTE | 2025-03-09 14:57 | PHA.DC.MC.R ---
Pharmacy [facility] has performed discharge medication reconciliation and counseling for this patient. 1. DILTIAZEM 120MG PO DAILY 2. TAMSULOSIN 0.4MG PO DAILY 3. APIXABAN DECREASED 2.5MG PO BID 4. HOLD JANUVIA 5. STOP LISINOPRIL AND METOPROLOL The patient's discharge medication list was reviewed for discrepancies and discrepancies were resolved. The patient was counseled on the following discharge medications and changes in medications for homegoing were reviewed. The Reason for Use, instructions for use, and potential side effects were reviewed for all new medications. The patient's questions regarding all of their medications were answered. The patient was able to verbally demonstrate an understanding of their discharge medications. Medications at Discharge Home Medications insulin glargine 100 unit/mL subcutaneous solution 30 unit SQ DAILY diabetes 11/19/19 multivitamin (Daily Multi-Vitamin tablet) 1 tab PO DAILY supplement 06/28/20 sitagliptin phosphate 50 mg tablet (Januvia) 50 mg PO DAILY diabetes 11/02/21 Held on 03/09/25. Instructions: Hold for at least 2 weeks until kidney function returns to baseline. Follow with PCP pravastatin 20 mg tablet 20 mg PO DAILY hyperlipidemia 01/17/22 cranberry 500 mg capsule 500 mg PO DAILY supplement 07/25/23 docusate sodium 100 mg capsule (Colace) 100 mg PO DAILY PRN stool softn 07/25/23 albuterol sulfate 90 mcg/actuation aerosol inhaler 2 puff inhalation Q4H PRN shortness of breath or wheezing #3 device 10/23/24 umeclidinium 62.5 mcg-vilanterol 25 mcg/actuation powdr for inhalation (Anoro Ellipta) 1 inh inhalation QDAY copd #60 ea 10/23/24 clopidogrel 75 mg tablet (Plavix) 75 mg PO DAILY atrial fibrillation #90 tabs 11/11/24 apixaban 5 mg tablet (Eliquis) 2.5 mg (1/2 x 5 mg) PO BID 30 days #30 tabs 03/09/25 diltiazem HCl 120 mg capsule,extended release 24 hr 120 mg PO DAILY 30 days #30 caps 03/09/25 guaifenesin 1,200 mg tablet, extended release 12 hr 1,200 mg PO Q12H 7 days #14 tabs 03/09/25 tamsulosin 0.4 mg capsule 0.4 mg PO DAILY@1730 30 days #30 caps 03/09/25
[2025-03-09 16:22] VITALS: PULSE 78; RESP 20; TEMP 36.9; O2SAT 92
--- NOTE | 2025-03-09 16:48 | NURSING ---
1430 pt and daughter teaching given on mims to leg bag for dc. aware that will need f/u with dr. chang in a week to dc. no other questions voiced
== END 2025-03-09 15:50 | disposition home health service (06) | DRG 291 ==
LOC: ED 19:14 → PCU 20:27
PROVIDERS: Admitting Provider Internal Medicine; Emergency Provider Emergency Medicine; PCP Family Medicine; Visit Provider Internal Medicine
DX: I13.0 Hypertensive heart and chronic kidney disease with heart failure and stage 1 through stage 4 chronic kidney disease, or unspecified chronic kidney disease (principal); I50.33 Acute on chronic diastolic (congestive) heart failure; E43 Unspecified severe protein-calorie malnutrition; I48.92 Unspecified atrial flutter; N17.9 Acute kidney failure, unspecified; I48.19 Other persistent atrial fibrillation; J96.11 Chronic respiratory failure with hypoxia; N30.01 Acute cystitis with hematuria; Z79.01 Long term (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 of anticoagulants; Z95.1 Presence of aortocoronary bypass graft; J44.9 Chronic obstructive pulmonary disease, unspecified; N18.32 Chronic kidney disease, stage 3b; E11.42 Type 2 diabetes mellitus with diabetic polyneuropathy; I25.10 Atherosclerotic heart disease of native coronary artery without angina pectoris; I87.2 Venous insufficiency (chronic) (peripheral); E87.5 Hyperkalemia; M19.90 Unspecified osteoarthritis, unspecified site; E11.22 Type 2 diabetes mellitus with diabetic chronic kidney disease; E11.51 Type 2 diabetes mellitus with diabetic peripheral angiopathy without gangrene; E78.5 Hyperlipidemia, unspecified; Z79.4 Long term (current) use of insulin; E66.3 Overweight; Z68.26 Body mass index [BMI] 26.0-26.9, adult; Z79.899 Other long term (current) drug therapy; Z79.84 Long term (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 of oral hypoglycemic drugs; Z79.02 Long term (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 of 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/antiplatelets; Z86.16 Personal history of COVID-19; Z79.51 Long term (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 of inhaled steroids; Z87.891 Personal history of nicotine dependence
CPT/HCPCS: 36415; 71045; 71046; 80048; 80053; 80061; 81001; 82962; 83036; 83735; 83880; 84100; 84132; 84443; 84484; 85025; 87086; 93005; 93306; 94640; 94668; 94762; 97110; 97116; 97162; 97165; 97166; 97802; 97803; 99285; Q9957; A4216; C8929; J0612; J1938

== ENCOUNTER 2025-03-15 16:56 | Emergency (ER) | payer MEDICARE, OTHER, SELFPAY ==
[2025-03-15 16:58] VITALS: BP 138/58; PULSE 100; RESP 18; TEMP 36.4; O2SAT 95; BMI 27.8
--- OUTSIDE RECORDS SUMMARY | 2025-03-15 17:24 | XMS RPT_ITS | CCD ---
Author Organization [facility]iniSy[facility] Care Team Providers Care Chemistry Laboratory Technician Name Role Phone Dr. Tonio Fajardo Primary Care Provider [phone] Dr. Tonio Fajardo Referring Provider Dr. Issa Looney Attending Provider [phone] Tonio Fajardo DO Primary Care Provider Dr. Tyrell Uriarte Attending Provider Dr. Tonio Fajardo Primary Care Provider [phone] Dr. Tonio Fajardo Referring Provider Brittny SPINNER FIXER, SPINNER FIXER-C Lorie Attending Provider Dr. Russ Zamora Attending Provider Renard SPINNER FIXER, SPINNER FIXER-C Bonny E Attending Provider Renard SPINNER FIXER, SPINNER FIXER-C Bonny E Referring Provider Renard SPINNER FIXER, SPINNER FIXER-C Bonny E Other Provider Dr. Srini Choi Attending Provider Dr. Srini Choi Referring Provider Dr. Srini Choi Other Provider Dr. Mateo Shahid Attending Provider Dr. Issa Looney Attending Provider [phone] Kenyon Flores Referring Provider Unava ilable Dr. Srini Choi Referring Provider [phone] Tevin Allen Attending Provider [phone] Dr. Tonio Fajardo Primary Care Provider [phone] Dr. Tonio Fajardo Referring Provider Dr. Tyrell Uriarte Attending Provider Dr. Issa Looney Attending Provider Dr. Kenyon Flores Referring Provider Unava mp Mart SPINNER FIXER, SPINNER FIXER-C Lorie Attending Provider [phone] Dr. Russ Zamora Attending Provider Renard SPINNER FIXER, SPINNER FIXER-C Bonny E Attending Provider [phone] Renard SPINNER FIXER, SPINNER FIXER-C Bonny E Referring Provider Renard SPINNER FIXER, SPINNER FIXER-C Bonny E Other Provider Dr. Srini Choi Attending Provider Dr. Srini Choi Referring Provider Dr. Srini Choi Other Provider Dr. Mateo Shahid Attending Provider [phone] Roof SPINNER FIXER, SPINNER FIXER-C Iker Stephens Attending Provider Tonio Fajardo DO Primary Care Provider JESSIE RODRIGUEZ Referring Unavailable TONIO FAJARDO Primary Care Unavailable TONIO FAJARDO Primary Care Unavailable Dr. Tonio Fajardo Primary Care Provider Dr. Tonio Fajardo Referring Provider Dr. Tonio Fajardo Primary Care Provider Renard SPINNER FIXER, SPINNER FIXER-C Bonny E Attending Provider Renard SPINNER FIXER, SPINNER FIXER-C Bonny E Referring Provider Renard SPINNER FIXER, SPINNER FIXER-C Bonny E Other Provider Dr. Tonio Fajardo Referring Provider Dr. Russ Zamora Attending Provider Dr. Tonio Fajardo Primary Care Provider Dr. Srini Choi Attending Provider Dr. Srini Choi Referring Provider Renard SPINNER FIXER, SPINNER FIXER-C Bonny E Attending Provider Renard SPINNER FIXER, SPINNER FIXER-C Bonny E Referring Provider Renard SPINNER FIXER, SPINNER FIXER-C Bonny E Other Provider Dr. Tonio Fajardo Referring Provider Dr. Russ Zamora Attending Provider Dr. Tonio Fajardo Primary Care Provider Renard SPINNER FIXER, SPINNER FIXER-C Bonny E Attending Provider Renard SPINNER FIXER, SPINNER FIXER-C Bonny E Referring Provider [phone] Renard SPINNER FIXER, SPINNER FIXER-C Bonny E Other Provider Dr. Tonio Fajardo Referring Provider Dr. Russ Zamora Attending Provider Dr. Srini Choi Attending Provider Dr. Tyrell Uriarte Attending Provider Dr. Tonio Fajardo Primary Care Provider Renard SPINNER FIXER, SPINNER FIXER-C Bonny E Attending Provider [phone] Renard SPINNER FIXER, SPINNER FIXER-C Bonny E Referring Provider Renard SPINNER FIXER, SPINNER FIXER-C Bonny E Other Provider Dr. Tonio Fajardo Primary Care Provider Renard SPINNER FIXER, SPINNER FIXER-C Bonny E Attending Provider Renard SPINNER FIXER, SPINNER FIXER-C Bonny E Referring Provider Renadr SPINNER FIXER, SPINNER FIXER-C Bonny E Other Provider [phone] Dr. Tonio Fajardo Primary Care Provider Renard SPINNER FIXER, SPINNER FIXER-C Bonny E Attending Provider [phone] Renard SPINNER FIXER, SPINNER FIXER-C Bonny E Referring Provider Renard SPINNER FIXER, SPINNER FIXER-C Bonny E Other Provider Dr. Tonio Fajardo Referring Provider Dr. Tonio Fajardo Primary Care Provider Renard SPINNER FIXER, SPINNER FIXER-C Bonny E Attending Provider Renard SPINNER FIXER, SPINNER FIXER-C Bonny E Referring Provider [phone] Renard SPINNER FIXER, SPINNER FIXER-C Bonny E Other Provider Dr. Tonio aFjardo Primary Care Provider Renard SPINNER FIXER, SPINNER FIXER-C Bonny E Attending Provider [phone] Renard SPINNER FIXER, SPINNER FIXER-C Bonny E Referring Provider [phone] Renard SPINNER FIXER, SPINNER FIXER-C Bonny E Other Provider Dr. Tonio Fajardo Primary Care Provider Renard SPINNER FIXER, SPINNER FIXER-C Bonny E Attending Provider Renard SPINNER FIXER, SPINNER FIXER-C Bonny E Referring Provider Renard SPINNER FIXER, SPINNER FIXER-C Bonny E Other Provider Dr. Tonio Fajardo Referring Provider Dr. Russ Zamora Attending Provider Dr. Tonio Fajardo Primary Care Provider Renard SPINNER FIXER, SPINNER FIXER-C Bonny E Attending Provider [phone] Renard SPINNER FIXER, SPINNER FIXER-C Bonny E Referring Provider Renard SPINNER FIXER, SPINNER FIXER-C Bonny E Other Provider Dr. Francisco Javier Lozada Attending Provider Dr. Joaquim Suárez Referring Provider [phone] Dr. Tonio Fajardo Primary Care Provider Renard SPINNER FIXER, SPINNER FIXER-C Bonny E Attending Provider Renard SPINNER FIXER, SPINNER FIXER-C Bonny E Referring Provider [phone] Renard SPINNER FIXER, SPINNER FIXER-C Bonny E Other Provider Dr. Tonio Fajardo Referring Provider Dr. Russ Zamora Attending Provider Dr. Francisco Javier Lozada Attending Provider Dr. Joaquim Suárez Referring Provider Dr. Tonio Fajardo Primary Care Provider Brittny SPINNER FIXER, SPINNER FIXER-C Lorie Attending Provider RICKIE Alejandra Attending Provider Dr. Tonio Fajardo Primary Care Provider Dr. Tonio Fajardo Referring Provider Dr. Issa Looney Attending Provider [phone] Tonio Fajardo Primary Care Provider [phone] Dr. Tonio Fajardo Referring Provider Dr. Russ Zamora Attending Provider Dr. Tyrell Uriarte Attending Provider Tonio Fajardo DO Primary Care Provider Dr. Tonio Fajardo DO Primary Care Provider Jose Armando COLINMDr. March Attending Provider Dr. Joaquim Suárez DPM Referring Provider Dr. Tonio Fajardo DO Referring Provider Leslie Alejandra Attending Provider Leslie Alejandra Referring Provider Brittny SPINNER FIXER-C, Lorie Attending Provider Brittny SPINNER FIXER-C, Lorie Referring Provider Brittny SPINNER FIXER-C, Lorie Other Provider Dr. Tyrell Uriarte DO Attending Provider [phone] Tonio Fajardo DO Attending Provider Sera STRATTON, Dr. Solano Attending Provider Sera STRATTON, Dr. Solano Referring Provider Scotty MCGEE, Dr. Elizalde Primary Care Provider Kim , Dr. Milligan Other Provider Scotty MCGEE, Dr. Elizaled Primary Care Provider Scotty MCGEE, Dr. Elizalde Referring Provider Sera STRATTON, Dr. Solano Attending Provider Sera STRATTON, Dr. Solano Referring Provider Don STRATTON, Dr. Perez Emergency Provider [phone] Lindsey DO, Dr. Petersen Admit Provider Unavail able de Los MCGEE, Dr. Petersen Attending Provider Unav ailable Scotty MCGEE, Dr. Elizalde Primary Care Provider Lindsey DO, Dr. Petersen Other Provider Unavail able Grzegorz STRATTON, Dr. Leos Attending Provider Te STRATTON, Dr. Toledo Other Provider Unavailable Marleen STRATTON, Dr. Davis Other Provider Unavailable Tamara STRATTON, Dr. Will Other Provider Peter STRATTON, Dr. Amador Other Provider Ortega STRATTON, Dr. Salazar Other Provider Joelle STRATTON, Dr. Garcia Other Provider Unavailable Aayush STRATTON, Dr. Parsons Other Provider Angela STRATTON, Dr. Anders Other Provider Jailyn STRATTON, Dr. Dorsey Other Provider Stephen STRATTON, Dr. Villalba Other Provider Rayne STRATTON, Dr. Najera Other Provider Shadi STRATTON, Dr. Graham Other Provider Michael SPINNER FIXER-C, Iker Stephens Other Provider Leslie Alejandra Other Provider [phone] Start: 04-28-2022 CORE NDL BX LNG/MED PERQ CORE NDL BX LNG/MED PERQ [facility] Work Phone: Start: 04-28-2022 Following clinical p athway protocol [facility] Work Phone: Start: 04-28-2022 Catheterization of vein [facility] Work Phone: Start: 04-28-2022 Oxygen therapy [facility] Work Phone: Start: 04-28-2022 Patient discharge [facility] Work Phone: Start: 04-28-2022 Vital signs measurements [facility] Work Phone: Start: 04-20-2022 Influenza vaccination INFLUENZA (#1) [facility] Start: 04-05-2022 End: 04-19-2022 Influenza virus A and B RNA and SARS-CoV-2 (COVID-19) N gene panel - Respiratory specimen by BRYAN with probe detection [facility] Work Phone: Comment on above: Expected: 04/05/2022 , Expires: 04/19/2022 Start: 08-20-2021 ADVANCE DIRECTIVE DISCUSSION ADVANCE DIRECTIVE DISCUSSION [facility] Start: 08-20-2021 DEPRESSION ASSESSMENT DEPRESSION ASS ESSMENT [facility] Start: 05-04-2021 COVID-19 VACCINE (3 - Booster for Moderna series) COVID-19 VACCINE (3 - Booster for Moderna series) [facility] Start: 01-27-2021 COVID-19 VACCINE (3 - Booster for Moderna series) COVID-19 VACCINE (3 - Booster for Moderna series) [facility] Start: 01-15-2020 RSV Vaccine (1 - 1-d ose 75+ series) RSV Vaccine (1 - 1-dose 75+ series) [facility] Start: 12-01-2018 DIABETES SCREEN DIABETES SCREEN [facility] Start: 12-01-2018 Diabetes Screening Diabetes Screenin g [facility] Start: 2010 Pneumococcal Vaccine : 65+ (1 of 1 - PCV) Pneumococcal Vaccine: 65+ (1 of 1 - PCV) [facility] Start: 2010 PNEUMOCOCCAL: 65+ (1 - PCV) PNEUMOCOCCAL: 65+ (1 - PCV) [facility] Start: 1995 SHINGRIX VACCINE (1 of 2) HEIN GRIX VACCINE (1 of 2) [facility] Start: 01-15-[address] [facility] Start: 1963 Anxiety Screening Anxiety Screening [facility] Start: 1963 Depression Screening Depression Scre ening [facility] Start: 1963 HEPATITIS C SCREENING HEPATITIS C SC EDDIENING [facility] Start: 1957 Adult depression scr eening assessment [facility] Alanine aminotransfe rase [Enzymatic activity/volume] in Serum or Plasma [facility] Albumin [Mass/volume ] in Serum or Plasma [facility] Alkaline phosphatase [Enzymatic activity/volume] in Serum or Plasma [facility] Anaerobic Culture Anaerobic Culture [facility] Work Phone: Anion gap measurement [facility] Aspartate aminotrans ferase [Enzymatic activity/volume] in Serum or Plasma [facility] Bacteria identified in Blood by Culture Blood Culture [facility] Bacteria identified in Unspecified specimen by Anaerobe culture [facility] Work Phone: Bacteria identified in Urine by Culture URINE CULTURE Microbiology Routine Burning with urination 04/05/2022 1:58 PM EDT [facility] Work Phone: Bacteria identified in Urine by Culture Urine Culture [facility] Bilirubin, total measurement [facility] BUN/Creatinine ratio [facility] Calcium [Mass/volume ] in Serum or Plasma [facility] Carbon dioxide, tota l [Moles/volume] in Serum or Plasma [facility] CBC W Auto Different ial panel - Blood [facility] Work Phone: CBC W Auto Different ial panel - Blood [facility] CBC W Auto Different ial panel - Blood [facility] Chloride [Moles/volu me] in Serum or Plasma [facility] Creatinine [Moles/vo lume] in Serum or Plasma [facility] CT Chest and Abdomen W contrast IV [facility] CT Chest W contrast IV [facility] Work Phone: CT Chest W contrast IV [facility] Glucose [Mass/volume ] in Serum or Plasma [facility] Hematocrit [Volume Fraction] of Blood [facility] Hemoglobin [Mass/vol ume] in Blood [facility] Hemoglobin A1c/Hemoglobin.total in Blood [facility] Lactate dehydrogenas e measurement [facility] Lactate dehydrogenas e measurement [facility] LDH [facility] Work Phone: Leukocytes [#/volume ] in Blood [facility] Magnesium measurement [facility] Mean corpuscular hemoglobin concentration determination [facility] Mean corpuscular hemoglobin determination [facility] Measurement of renal function [facility] Microbial culture, routine Wound Culture [facility] Work Phone: MR Brain WO and W co ntrast IV [facility] Work Phone: Natriuretic peptide. B prohormone N-Terminal [Mass/volume] in Serum or Plasma [facility] Neutrophil count [facility] Neutrophil percent differential count [facility] Patient Education [facility] Work Phone: Patient referral [facility] Work Phone: Platelets [#/volume] in Blood [facility] Positron emission tomography with computed tomography [facility] Work Phone: Potassium [Moles/vol ume] in Serum or Plasma [facility] Procedure [facility] PT Unspecified body region [facility] Radiation oncology A ND/OR radiotherapy [facility] Work Phone: Radiation oncology A ND/OR radiotherapy [facility] Red blood cell count [facility] Red cell distributio n width determination [facility] Sodium [Moles/volume ] in Serum or Plasma [facility] Total protein measurement [facility] Urea nitrogen [Mass/volume] in Serum or Plasma [facility] Immunizations Immunization Date Immunization Notes Care Provider Kath tan 08-03-2014 influenza virus vaccine, unspecified formulation Xr [facility] Work Phone: [facility] 06-20-2013 Influenza virus vaccine [facility] 06-20-2013 Pneumococcal Vaccine [facility] Work Phone: 06-20-2013 pneumococcal vaccine , unspecified formulation Dr. Tonio Fajardo Work Phone: [facility] Payers Date Payer Category Payer Self-pay [id number] 2009 Medicare [id number] 2009 Medicare MEDICARE MEDICAR E A AND B [id number] 2009-Present [phone] [address] [address] [place] [address] Medicare [id number] 2009 [employer] ( and others) [id number] 2009 Unknown FOR LIFE [id number] 2009-Present [phone] [address] [place] [address] Indemnity [id number] Unknown [id number] 2.16840.1.258679.3.579. 2.462 Unknown [id number] 2.16840.1.297617.3.579. 2.462 Unknown [id number] 2.16840.1.483579.3.579. 2.462 Unknown [id number] 2.16840.1.344518.3.579. 2.462 Unknown [id number] 2.16.840.1.952581.3.579. 2.462 Unknown [id number] 2.16840.1.150494.3.579. 2.462 Unknown [id number] 2.16840.1.256894.3.579. 2.462 Unknown [id number] 2.16.840.1.828182.3.579. 2.462 Unknown [id number] 2.16.840.1.665860.3.579. 2.462 Unknown [id number] 2.16.840.1.507333.3.579. 2.462 Unknown [id number] 2.16.840.1.621599.3.579. 2.462 Unknown [id number] 2.16.840.1.272051.3.579. 2.462 Unknown [id number] 2.16.840.1.047338.3.579. 2.462 Unknown [id number] 2.16.840.1.568706.3.579. 2.462 Unknown [id number] 2.16.840.1.470654.3.579. 2.462 Unknown [id number] 2.16.840.1.285316.3.579. 2.462 Unknown [id number] 2.16.840.1.814113.3.579. 2.462 Unknown [id number] 2.16.840.1.157010.3.579. 2.462 Unknown [id number] 2.16.840.1.903133.3.579. 2.462 Unknown [id number] 2.16.840.1.366567.3.579. 2.462 Unknown [id number] 2.16.840.1.924557.3.579. 2.462 Unknown [id number] 2.16.840.1.773960.3.579. 2.462 Unknown [id number] 2.16.840.1.989156.3.579. 2.462 Unknown [id number] 2.16840.1.306548.3.579. 2.462 Unknown [id number] 2.16.840.1.966273.3.579. 2.462 Social History Date Type Detail Facility Start: 01-06-2021 End: 10-31-2023 Tobacco smoking status PAIS Unknown if ever smoked [facility] Start: 08-27-2013 None [facility] Start: 03-18-2014 Spouse/ Signif icant Other [facility] Start: 06-20-2014 Non-smoker [facility] Start: 1945 Sex Assigned At Male [facility] Start: 04-05-2022 End: 03-05-2025 Tobacco smoking status NHIS Ex-smoker [facility] Work Phone: History of tobacco use Current smoker [facility] Work Phone: History of tobacco use Cigarette Smoker [facility] Work Phone: Start: 04-05-2022 Tobacco use and exposure Former smokeless tobacco user [facility] Work Phone: Start: 1945 Sex Assigned At Not on file [facility] Start: 03-26-2022 End: 04-05-2022 Exposure to SARS-CoV-2 (event) Not sure [facility] Work Phone: Start: 04-05-2022 History of Social function [facility] Start: 04-05-2022 Tobacco use panel [facility] Start: 10-30-2024 End: 11-10-2024 Sex Male (finding) [facility] Medical Equipment Procedure Code Equipment Code [...] Goals Date Patient Goal Desired Activity /State Functional Status Date Assessment Result Facility 03-09-2025 Functional status Chair [facility] Work Phone: Mental Status Date Assessment Result Facility 03-09-2025 Cognitive function Voice/Name [facility] Work Phone: 06-08-2023 Cognitive function Voice/Name [facility] Work Phone: 12-30-2022 Cognitive function Level Of Cons ciousness Awake;Alert;Appropriate;Follow s Commands [facility] Work Phone: 04-28-2022 Cognitive function Voice/Name [facility] Work Phone: 04-14-2022 Cognitive function Level Of Cons ciousness Awake;Appropriate;Follows Commands;Drowsy [facility] Work Phone: Clinical Notes 04-05-2022 to 03-09-2025 Note Date & Type Note Facility 03-09-2025 Consult note [facility] 03-09-2025 Discharge summary Note Date/Time March 09, 2025 12:52pm [facility] Medical Records Department [address] [place] [id number] Discharge Summary 03/09/25 1251 MR#: [id number] Acct: [id number] Name: PEDRO HILLMAN Rep #:[id number] : 1945 80 From: Deric Smith PCP: Dr. Tonio Fajardo DO Status:ADM IN Location: [id number] Providers Date of Admission: 03/04/25 Date of Discharge: 03/09/25 Primary Care Physician: Dr. Tonio Fajardo DO Consultations 03/04/25 21:21 Consult: Cardiology Routine Consulting Provider: [facility] Reason for Consult: AE CHF, a flutter with RVR and elevated troponin. EMERGENT Consult: No MD Notified: Yes Date Notified: 03/05/25 Time Notified: 07:17 Method of Notification: Text Method of Consult:: In-Person Reason For Visit: AE CHF, ATRIAL FLUTTER; WITH RVR AND ELEVATED Diagnosis Discharge Diagnosis (1) Other persistent atrial fibrillation: Status: Acute Code(s): I48.19 - Other persistent atrial fibrillation (2) Coronary artery disease: Status: Acute Code(s): I25.10 - Atherosclerotic heart disease of [place] coronary artery without angina pectoris Qualifiers: Coronary Disease-Associated Artery/Lesion type: [place] artery In[place]iat vs. transplanted heart: [place] heart Associated angina: without angina Qualified Code(s): I25.10 - Atherosclerotic heart disease of [place] coronary artery without angina pectoris (3) Chronic anticoagulation: Status: Acute Code(s): Z79.01 - USP (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 of anticoagulants Plan 80-year-old gentleman on 4 L of O2 with history of lung cancer/COPD was admittedwith shortness of breath for 1 day. Noted hypoxia 78 to 80% on room air on EMS. No leg swelling. No fever chest pain. Denies any change in cough. EMS vitalsshows tachycardia heart rate 120/min, glucose 174, pulse ox 83%, end-tidal 30. 1. Acute exacerbation of chronic HFpEF: Patient admitted in PCU. elevated NT pro-BNP II of 3,316 pg/mL with a corresponding CXR that revealed cardiomegaly and CHF with small right pleural effusion and bibasilar atelectasis worse at theRight lung base Maintain metoprolol and lisinopril as before. 03/05: Heart failure core measures including intake and output, fluid restrictionless than 1500 mL, daily weight monitoring, kidney and electrolytes monitoring. On furosemide 40 mg twice daily. Serial troponins 44, 45 and 42 therefore no significant delta change. ACS ruled out. [facility] is consulted. Repeat proBNP is elevated but it does not reflect treatment response as it should not be ordered for that. Clinically patient is feeling better with improvement in shortness of breath. 2D echo 03/05 reported EF 55%, PASP 42 mmHg with moderate TR, moderate IA and mild PI. 03/06: Furosemide changed to 40 g daily. Patient is over diuresed. 03/07 hold Lasix. 03/08: Mild leg swelling. Tejas wrap bandage ordered 03/09: Continue Tejas wrap bandage at home. 2. EKG evidence of Atrial Flutter; with Rapid Ventricular Response of ~117 bpm even after being treated with IV Cardizem bolus probably precipitating CHF exacerbation: Patient already on apixaban patient had digoxin. TSH 3.7 normal. Twelve-lead EKG individually reviewed and shows atrial flutter 2 is to 1 conduction. Later on irregular variable conduction on bus driver/monitor 03/06: Discussed with the calliope player. Metoprolol increased to 25 mg twice daily, Cardizem 60 mg Q6 hourly. If heart rate controlled, will switch to long-acting Cardizem CD. 03/07: Bradycardia heart rate dropped to 40s. Hold metoprolol in the morning andresume from night. Heart rate improved from 40s to 62, 76/m. Resume metoprololfrom tonight. Cardizem regular changed to Cardizem CD 120 mg twice daily with holding parameters. Discussed with the patient's daughter, she was not comfortable taking home. Will try to establish heart rate. 03/08: Patient still bradycardic. Last night he had Cardizem 120 mg and heart rate in 40s and blood pressure in the 90s. Discussed with the calliope player. Advised to discontinue to discontinue metoprolol and Cardizem 30 mg Q8 hourly with holding parameters. This was informed to the patient's daughter. I also discussed about the CODE STATUS that is full code with his guarded prognosis in view of multiple cardiac disease and cardiac surgery including bypass in 2012 and aortobifemoral bypass in 2009. She noticed an old discussed with her other family member and was updated about the CODE STATUS. 03/09: Discussed with the calliope player.Patient heart rate controlled in 70s. Yesterday rate was in 80s. Patient tolerated Cardizem 30 mg every 8 hourly therefore discharged on Cardizem CD 120 mg. I called patient's [id number] and explained the medication. [employer] Professional felt probably does not need even pacemaker. Advised to follow-up with Leslie Arriaga in [address] Looney for further opinion. Patient might have sinus node dysfunction/tachybradycardia syndrome. 3. DARIUSZ on CKD; stage IIIb with hyperkalemia, present on admission:-serum creatinine of 1.86 mg/dL, BUN of 37 mg/dL and EGFR of 36 mL/min present on admission. Treated with IV furosemide. Repeat potassium 5.0 slightly better than 5.2. His baseline creatinine runs around 2.21-2.36. Admitted with 1.87, today 1.86. 03/06: Furosemide changed to oral once daily. 03/07 creatinine jumped to 2.23, 3.09. BUN 56. Hold furosemide for next few days. Monitor kidney function tomorrow a.m. 03/08: Creatinine increased to 3.11 but patient had good urine output 900 mL yesterday and 400 mL since midnight today. Nonoliguric DARIUSZ. Patient has Claudio catheter which resulted last night. Flomax started. Urine culture shows no growth. 03/09: Creatinine is improving. Hold nephrotoxic medication. Hold home medication, Januvia as it is excreted by kidney. Patient discharged with Claudio catheter. Prescription given for Flomax. Follow-up in urology office 5. UA positive for Acute Cystitis; with microscopic hematuria:- Start IV ceftriaxone empirically. Urine culture ordered 6. CAD; s/p CABG x 3 (2012) - 7. Essential hypertension; on lisinopril and metoprolol BID - Resume home regimen plus give as needed IV hydralazine for systolic blood pressure greater than 160 mmHg. 8. Hyperlipidemia; on pravastatin - Continue statin and check lipid profile. 9. Chronic hypoxic respiratory failure on 4 L continuously: 10. 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 On sitagliptin. Accu-Chek before meals and at bedtime with Humalog sliding scale coverage and hypoglycemia protocol. 03/09 glucoses controlled 118. A1c 6.3%. 11. Peripheral artery disease with history of left lower extremity ulcer statuspost aortofemoral bypass graft in 2009 and chronic venous insufficiency. Continue clopidogrel 12. Overweight; with BMI of 26 this admission - Weight loss will be recommended. 13. Chronic anemia - Stable with hemoglobin of 10.1 g/dL and MCV of 89.3 fL present on admission. Hemoglobin 9.3. Does not show significant drop or meet criteria for acute anemia 14. Chronic degenerative arthritis, give acetaminophen prn pain or fever DVT prophylaxis - Patient already on apixaban for #2 which will be continued. Discharge medication reconciliation done. Discharge follow-up instructions completed. Discharge process discussed with the patient and all questions wereanswered to patient's satisfaction. Follow with PCP in 1 to 2 weeks Total time spent, exact 35 minutes on discharge meds reconciliation, examination, coordination of care with nurses and ancillary staff, review of imaging and blood test and discussion with the patient on follow-up instructions. Clinical Impression(s) from Imaging Studies Chest X-Ray 03/04/25 14:59 IMPRESSION: Cardiomegaly and CHF with small right pleural effusion and bibasilar atelectasisworse at the right lung base. Reading Location: [facility] Echocardiogram 03/04/25 20:08 Interpretation Summary Moderate concentric left ventricular hypertrophy. The LV ejection fraction is 55 %. Stage 1 diastolic dysfunction. The left atrium is severely enlarged. Severe mitral valve annular calcification. Moderate posteriorly directed mitral valve regurgitation. Moderate tricuspid valve regurgitation. Estimated pulmonary artery systolic pressure 42 mmHg. Mild (1+) pulmonic valve insufficiency. The study was technically difficult. Ordering Physician: Nicola Lindsey Referring Physician: SCOTTY ELIZALDE Performed By: Haley Stevens and Student Chest X-Ray 03/05/25 04:30 IMPRESSION: Small interval improvement in right lung base aeration. Reading Location: [place] [address] Medications at Discharge Home Medications insulin glargine 100 unit/mL subcutaneous solution 30 unit SQ DAILY diabetes 11/19/19 multivitamin (Daily Multi-Vitamin tablet) 1 tab PO DAILY supplement 06/28/20 sitagliptin phosphate 50 mg tablet (Januvia) 50 mg PO DAILY diabetes 11/02/21 Held on 03/09/25. Instructions: Hold for at least 2 weeks until kidney function returns to baseline. Follow with PCP pravastatin 20 mg tablet 20 mg PO DAILY hyperlipidemia 01/17/22 cranberry 500 mg capsule 500 mg PO DAILY supplement 07/25/23 docusate sodium 100 mg capsule (Colace) 100 mg PO DAILY PRN stool softn 07/25/23 albuterol sulfate 90 mcg/actuation aerosol inhaler 2 puff inhalation Q4H PRN shortness of breath or wheezing #3 device 10/23/24 umeclidinium 62.5 mcg-vilanterol 25 mcg/actuation powdr for inhalation (Anoro Ellipta) 1 inh inhalation QDAY copd #60 ea 10/23/24 clopidogrel 75 mg tablet (Plavix) 75 mg PO DAILY atrial fibrillation #90 tabs 11/11/24 apixaban 5 mg tablet (Eliquis) 2.5 mg (1/2 x 5 mg) PO BID 30 days #30 tabs 03/09/25 diltiazem HCl 120 mg capsule,extended release 24 hr 120 mg PO DAILY 30 days #30 caps 03/09/25 guaifenesin 1,200 mg tablet, extended release 12 hr 1,200 mg PO Q12H 7 days #14 tabs 03/09/25 tamsulosin 0.4 mg capsule 0.4 mg PO DAILY@1730 30 days #30 caps 03/09/25 Physical Exam Narrative Seen and examined Shortness of breath is better. Leg edema is better. Cough is better. Heart rate is controlled, in atrial flutter, heart rate in 70s Patient also had urinary retention and a straight cath was placed. Discharged with a Claudio catheter. No syncope. Denies chest pain. Had CABG several yearsago and coronary stent prior to that. Denies burning with urination. Had bowel movement Physical exam: General: Alert, Oriented x3, Cooperative HEENT: Atraumatic, PERRLA, EOMI, Normocephalic. Oral: No Gingival or Mucosal Lesions/ Ulcerations Neck: Supple, No JVD, Negative Carotid Bruits Chest wall/Lungs: Air entry diminished in bilateral lung bases. No crepitation/rhonchi Cardiovascular: Irregular rhythm, Normal S1,S2, systolic murmur. CABG scar Abdomen: Bowel Sounds Present, Soft, Non Tender, Non-Distended : Claudio catheter. No renal angle tenderness. No suprapubic tenderness. Extremities: Mild pedal edema, Capillary Refill Less than 3 Seconds Skin: No rashes, No breakdown Musculoskeletal: No Tenderness to Palpation of Joints or Extremities Neurological: Cranial nerves II-XII grossly intact, DTR 2+/4. No acute focal neurological deficit. Psych/Mental Status: Normal Affect, Appropriate. Medical Records Data Medical Nutrition Assessment Dietitian: Malnutrition Criteria Met Start: 03/05/25 14:17 Freq: Status: Active Protocol: Document 03/05/25 14:17 SB (Rec: 03/05/25 14:17 SB [id number]) Nutrition Malnutrition Evidence of Yes Malnutrition Exists Malnutrition (severe Acute Illness/Injury ): Evidenced By Suboptimal Energy Intake (Severe),Weight Loss (Severe) Clinical Problem Acute Disease or Injury Related Malnutrition Etiology severe malnutrition in the context of lung cancer related to inadequate oral/energy intake Signs/Symptoms as evidenced by PO meeting <50% of estimated nutrition needs x 1 month and 10% unintentional weight loss x2 months Status Active Problem Recommendation Dietitian Liberalize to regular, no added salt diet due to signs Recommendations/ and symptoms of malnutrition. Changes Will order 120ml glucerna shake TID with meals. Will monitor weight trends. Weight / BMI Weight Weight: 173 lb 11.588 oz Body Mass Index (BMI) 28.0 ABG / Lab / Microbiology Data 03/09/25 08:21 03/09/25 08:21 Laboratory: Laboratory Results - last 24 hr 03/08/25 12:20: POC Glucose 128 H 03/08/25 16:33: POC Glucose 142 H 03/08/25 21:23: POC Glucose 132 H 03/09/25 06:22: POC Glucose 112 H 03/09/25 08:21: WBC 5.5, RBC 3.38 L, Hgb 9.3 L, Hct 29.6 L, MCV 87.6, MCH 27.5, MCHC 31.4 L, RDW Std Deviation 51.8 H, RDW Coeff of Reggie 16.3 H, Plt Count 162, MPV 10.0, Immature Gran % (Auto) 0.600, Neut % (Auto) 72.6 H, Lymph % (Auto) 9.7L, Hunt % (Auto) 12.1 H, Eos % (Auto) 4.8, Baso % (Auto) 0.2, Absolute Neuts (auto) 4.0, Absolute Lymphs (auto) 0.53 L, Nucleated RBC % 0, Sodium 138, Potassium 4.3, Chloride 101, Carbon Dioxide 26.6, Anion Gap 10, BUN 50 H, Creatinine 2.41 H, Estim Creat Clear Calc 24.14 L, Est GFR (MDRD) Non-Af 26 L, BUN/Creatinine Ratio 20.8 H, Glucose 118 H, Calcium 9.0 03/09/25 11:43: POC Glucose 184 H Microbiology: Microbiology 03/06/25 18:40 Urine, Clean Catch Urine Culture - Final Culture exhibits no growth. D/C Instructions Weight Bearing Status: Weight bearing as tolerated Call your doctor if you observe: Fever of 101 or Higher, Coldness, Increased Pain, Numbness or Tingling, Change in Color, Inability to urinate, Inability to have a bowel movement, Shortness of breath, Dizziness, Fainting spells, Swellingin the ankles, Chest pain, Prolonged hiccupping, Increased palpitations (irregular heartbeat) and Calf discomfort DC O2, CPAP, BIPAP Needs Home O2 Discharge instructions: Yes Type of respiratory needs?: Oxygen Oxygen frequency: Continuous Continuous oxygen liters per minute: 2 DC home with Oxygen: Yes Home O2 MD Review: I have reviewed the oxygen testing, and the patient qualifies for home oxygen equipment and portability. The patient is mobile in the home and the community. When: IN 2 WEEKS Meaningful Use Info Meaningful Use Meaningful Use Diagnoses (Choose all that apply): None applicable Discharge Plan Admission Admit Date/Time: 03/04/25 19:57 Primary Reason for Your Visit: Atrial flutter with RVR/tachybradycardia syndrome, CHF exacerbation Attending Provider: Deric Lantigua Primary Care Provider: Tonio Fajardo Consulting Providers: Nicola Lindsey; Paris Tiwari; Susan Hawley; Nicolette Mcdonald;Marjorie Green; Martin Vivas; Jose Lai; Issa Looney; Chago Milelr; Willian Glaser; Orly Mitchell; Reinaldo Mclain; Santos Hsu; Iker Rodriguez NP; Leslie Arriaga; Tadeo Thakkar Instructions Additional Instructions / Restrictions: Discharge with Claudio catheter. Discharge Orders/Prescriptions Prescriptions: New diltiazem HCl 120 mg Capsule,Extended Release 24hr 120 mg PO DAILY 30 Days Qty: 30 2RF Eliquis 5 mg Tablet 2.5 mg PO BID 30 Days Qty: 30 3RF tamsulosin 0.4 mg Capsule 0.4 mg PO DAILY@1730 30 Days Qty: 30 2RF Continued multivitamin [Daily Multi-Vitamin] Tablet 1 tab PO DAILY pravastatin 20 mg tablet 20 mg PO DAILY docusate sodium [Colace] 100 mg capsule 100 mg PO DAILY PRN (Reason: stool softn) cranberry 500 mg capsule 500 mg PO DAILY Rx Instructions: administer with meals albuterol sulfate 90 mcg/actuation HFA aerosol inhaler 2 puff inhalation Q4H PRN (Reason: shortness of breath or wheezing) Qty: 3 3RF Rx Instructions: administer with spacer umeclidinium-vilanterol [Anoro Ellipta] 62.5-25 mcg/actuation blister with device 1 inh inhalation QDAY Qty: 60 3RF insulin glargine 100 UNIT/ML solution 30 unit SQ DAILY guaifenesin 1,200 mg tablet extended release 12hr 1,200 mg PO Q12H 7 Days Qty: 14 6RF clopidogrel [Plavix] 75 mg tablet 75 mg PO DAILY Qty: 90 3RF Held Januvia 50 mg Tablet 50 mg PO DAILY Hold Instructions: Hold for at least 2 weeks until kidney function returns to baseline. Follow with PCP Discontinued metoprolol tartrate 25 mg tablet 12.5 mg PO BID Qty: 45 7RF Eliquis 5 mg tablet 5 mg PO BID Qty: 180 3RF lisinopril 2.5 mg tablet 2.5 mg PO DAILY Qty: 90 3RF Referrals / Follow Up: Issa Looney MD [Med Staff - Active Staff] - Within 1 Month (Follow-up to evaluate for atrial flutter, tachybradycardia syndrome) Davon Saravia MD [Med Staff - Consulting] - Within 1 Month (For DARIUSZ on CKD) Tonio Fajardo DO [Primary Care Provider] - Leslie Arriaga PA [Med Staff - Adv Practice Prof] - Within 2 Weeks Rodolfo Rob MD [Med Staff - Active Staff] - Within 1 Week (Discharged with Claudio catheter.) Disposition Disposition (needs filled in before D/C Order can be placed): Home, Self Care Charges/Coding Visit Charges Inpatient E&M: 70482 Disch Hosp >30min 03/09/25 1252 <Electronically signed by Deric Lantigua MD> Cosigner Signature (if applicable): CC: Dr. Tonio Fajardo DO; Dr. Willian Glaser MD; Dr. Deric Lantigua MD~ Signed [facility] Work Phone: 1(945) 937-361707-21-2025 Discharge summary Author Deric Lantigua [facility] Note Date/Time March 09, 2025 12:4 4pm [facility] Medical Records Department [address] [place] [address] Instructions for Home/Discharge Instructions 03/09/25 1031 MR#: [id number] Acct: [id number] Name: PEDRO HILLMAN Rep #:[id number] : 1945 80 From: Deric Smith PCP: Dr. Tonio Fajardo DO Status:ADM IN Discharge Instructions DC O2, CPAP, BIPAP needs Home O2 Discharge instructions: Yes Type of respiratory needs?: Oxygen Oxygen frequency: Continuous Continuous oxygen liters per minute: 2 Dressing / Incision Discharge Activity: Return to Normal Activity Weight Bearing Status: Weight bearing as tolerated Dressing / Incision Call your doctor if you observe: Fever of 101 or Higher, Coldness, Increased Pain, Numbness or Tingling, Change in Color, Inability to urinate, Inability to have a bowel movement, Shortness of breath, Dizziness, Fainting spells, Swellingin the ankles, Chest pain, Prolonged hiccupping, Increased palpitations (irregular heartbeat) and Calf discomfort Follow Up Care When: IN 2 WEEKS Test Results: Test results from this visit will be discussed in further detail at your follow- up appointment, if applicable. Discharge Plan Admission Admit Date/Time: 03/04/25 19:57 Attending Provider: Deric Lantigua Primary Care Provider: Tonio Fajardo Consulting Providers: Nicola Lindsey; Paris Tiwari; Susan Hawley; Nicolette Mcdonald;Marjorie Green; Martin Vivas; Jose Lai; Issa Looney; Chago Miller; Willian Glaser; Orly Mitchell; Reinaldo Mclain; Santos Hsu; Iker Rodriguez NP; Leslie Arriaga; Tadeo Thakkar Discharge Orders/Prescriptions Prescriptions: New diltiazem HCl 120 mg Capsule,Extended Release 24hr 120 mg PO DAILY 30 Days Qty: 30 2RF Eliquis 5 mg Tablet 2.5 mg PO BID 30 Days Qty: 30 3RF Continued multivitamin [Daily Multi-Vitamin] Tablet 1 tab PO DAILY pravastatin 20 mg tablet 20 mg PO DAILY docusate sodium [Colace] 100 mg capsule 100 mg PO DAILY PRN (Reason: stool softn) cranberry 500 mg capsule 500 mg PO DAILY Rx Instructions: administer with meals albuterol sulfate 90 mcg/actuation HFA aerosol inhaler 2 puff inhalation Q4H PRN (Reason: shortness of breath or wheezing) Qty: 3 3RF Rx Instructions: administer with spacer umeclidinium-vilanterol [Anoro Ellipta] 62.5-25 mcg/actuation blister with device 1 inh inhalation QDAY Qty: 60 3RF insulin glargine 100 UNIT/ML solution 30 unit SQ DAILY guaifenesin 1,200 mg tablet extended release 12hr 1,200 mg PO Q12H 7 Days Qty: 14 6RF clopidogrel [Plavix] 75 mg tablet 75 mg PO DAILY Qty: 90 3RF Held Januvia 50 mg Tablet 50 mg PO DAILY Hold Instructions: Hold for at least 2 weeks until kidney function returns to baseline. Follow with PCP Discontinued metoprolol tartrate 25 mg tablet 12.5 mg PO BID Qty: 45 7RF Eliquis 5 mg tablet 5 mg PO BID Qty: 180 3RF lisinopril 2.5 mg tablet 2.5 mg PO DAILY Qty: 90 3RF Referrals / Follow Up: Issa Looney MD [Med Staff - Active Staff] - Within 1 Month (Follow-up to evaluate for atrial flutter, tachybradycardia syndrome) Davon Saravia MD [Med Staff - Consulting] - Within 1 Month (For DARIUSZ on CKD) Tonio Fajardo DO [Primary Care Provider] - Leslie Arriaga PA [Med Staff - Adv Practice Prof] - Within 2 Weeks Disposition Disposition (needs filled in before D/C Order can be placed): Home, Self Care 03/09/25 4287<Electronically signed by Deric Lantigua MD>Deric Lantigua MD CC: FARHEEN Rodriguez; Dr. Susan Hawley MD; Dr. Paris Tiwari MD; Dr. Marjorie Green MD; Dr. Nicolette Mcdonald MD; Dr. Martin Vivas MD; Dr. Jose Lai MD; Dr. Issa Looney MD; Dr. Nicola Lindsey DO; Dr. Chago Miller MD; Dr. Tonio Fajardo DO; Dr. Willian Glaser MD; Dr. Orly Mitchell MD; Dr. Santos Hsu MD; Dr. Reinaldo Mclain MD; RICKIE Kumari; RICKIE Cummins ~ Signed [facility] Work Phone: 1(385) 575-611707-21-2025 Hospital Discharge instructionsAdditional Instructions Discharge with Claudio catheter. [facility]: [facility]: 1(494) 949-136907-21-2025 Discharge summary [facility] Medical Records Department [facility] [place] [address] Discharge Summary 03/09/25 1251 MR#: [id number] Acct: [id number] Name: PEDRO HILLMAN Rep #:[id number] : 1945 80 From: Deric Smith PCP: Dr. Tonio Fajardo DO Status:ADM IN Location: [place] [address] Providers Date of Admission: 03/04/25 Date of Discharge: 03/09/25 Primary Care Physician: Dr. Tonio Fajardo DO Consultations 03/04/25 21:21 Consult: Cardiology Routine Consulting Provider: [facility] Reason for Consult: AE CHF, a flutter with RVR and elevated troponin. EMERGENT Consult: No MD Notified: Yes Date Notified: 03/05/25 Time Notified: 07:17 Method of Notification: Text Method of Consult:: In-Person Reason For Visit: AE CHF, ATRIAL FLUTTER; WITH RVR AND ELEVATED Diagnosis Discharge Diagnosis (1) Other persistent atrial fibrillation: Status: Acute Code(s): I48.19 - Other persistent atrial fibrillation (2) Coronary artery disease: Status: Acute Code(s): I25.10 - Atherosclerotic heart disease of [place] coronary artery without angina pectoris Qualifiers: Coronary Disease-Associated Artery/Lesion type: [place] artery [place] vs. transplanted heart: nativeheart Associated angina: without angina Qualified Code(s): I25.10 - Atherosclerotic heart disease of [place] coronary artery without angina pectoris (3) Chronic anticoagulation: Status: Acute Code(s): Z79.01 - USP (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 of anticoagulants Plan 80-year-old gentleman on 4 L of O2 with history of lung cancer/COPD was admittedwith shortness of breath for 1 day. Noted hypoxia 78 to 80% on room air on EMS. No leg swelling. No fever chest pain. Denies any change in cough. EMS vitalsshows tachycardia heart rate 120/min, glucose 174, pulse ox 83%, end-tidal 30. 1. Acute exacerbation of chronic HFpEF: Patient admitted in PCU. elevated NT pro-BNP II of 3,316 pg/mL with a corresponding CXR that revealed cardiomegaly and CHF with small right pleural effusion and bibasilar atelectasis worse at theRight lung base Maintain metoprolol and lisinopril as before. 03/05: Heart failure core measures including intake and output, fluid restrictionless than 1500 mL, daily weight monitoring, kidney and electrolytes monitoring. On furosemide 40 mg twice daily. Serialtroponins 44, 45 and 42 therefore no significant delta change. ACS ruled out. [employer] Professional is consulted. Repeat proBNP is elevated but it does not reflect treatment response as it should not be ordered for that. Clinically patient is feeling better with improvement in shortness of breath. 2D echo 03/05 reported EF 55%, PASP 42 mmHg with moderate TR, moderate IA and mild PI. 03/06: Furosemide changed to 40 g daily. Patient is over diuresed. 03/07 hold Lasix. 03/08: Mild leg swelling. Tejas wrap bandage ordered 03/09: Continue Tejas wrap bandage at home. 2. EKG evidence of Atrial Flutter; with Rapid Ventricular Response of ~117 bpm even after being treated with IV Cardizem bolus probably precipitating CHF exacerbation: Patient already on apixaban patient had digoxin. TSH 3.7 normal. Twelve-lead EKG individually reviewed and shows atrial flutter 2 is to 1 conduction. Later on irregular variable conduction on bus driver/monitor 03/06: Discussed with the calliope player. Metoprolol increased to 25 mg twice daily, Cardizem 60 mg [id number]. If heart rate controlled, will switch to long- acting Cardizem CD. 03/07: Bradycardia heart rate dropped to 40s. Hold metoprolol in the morning andresume from night. Heart rate improved from 40s to 62, 76/m. Resume metoprololfrom tonight. Cardizem regular changed to Cardizem CD 120 mg twice daily with holding parameters. Discussed with the patient's daughter, she was not comfortable taking home. Will try to establish heart rate. 03/08: Patient still bradycardic. Last night he had Cardizem 120 mg and heart rate in 40s and blood pressure in the 90s. Discussed with the calliope player. Advised to discontinue to discontinue metoprolol and Cardizem 30 mg Q8 hourly with holding parameters. This was informed to the patient's daughter. I also discussed about the CODE STATUS that is full code with his guarded prognosis in view of multiple cardiac disease and cardiac surgery including bypass in 2012 and aortobifemoral bypass in 2009. She noticed an old discussed with her other family member and was updated about the CODE STATUS. 03/09: Discussed with the calliope player.Patient heart rate controlled in 70s. Yesterday rate was in 80s. Patient tolerated Cardizem 30 mg every 8 hourly therefore discharged on Cardizem CD 120 mg. I called patient's [id number] and explained the medication. [employer] Professional felt probably does not need even pacemaker. Advised to follow-up with Leslie Arriaga in [address] Looney for further opinion. Patient might have sinus node dysfunction/tachybradycardia syndrome. 3. DARIUSZ on CKD; stage IIIb with hyperkalemia, present on admission:-serum creatinine of 1.86 mg/dL, BUN of 37 mg/dL and EGFR of 36 mL/min present on admission. Treated with IV furosemide. Repeat potassium 5.0 slightly better than 5.2. His baseline creatinine runs around 2.21-2.36. Admitted with 1.87, today 1.86. 03/06: Furosemide changed to oral once daily. 03/07 creatinine jumped to 2.23, 3.09. BUN 56. Hold furosemide for next few days. Monitor kidney function tomorrow a.m. 03/08: Creatinine increased to 3.11 but patient had good urine output 900 mL yesterday and 400 mL since midnight today. Nonoliguric DARIUSZ. Patient has Claudio catheter which resulted last night. Flomax started. Urine culture shows no growth. 03/09: Creatinine is improving. Hold nephrotoxic medication. Hold home medication, Januvia as it is excreted by kidney. Patient discharged with Claudio catheter. Prescription given for Flomax. Follow-upin urology office 5. UA positive for Acute Cystitis; with microscopic hematuria:- Start IV ceftriaxone empirically. Urine culture ordered 6. CAD; s/p CABG x 3 (2012) - 7. Essential hypertension; on lisinopril and metoprolol BID - Resume home regimen plus give as needed IV hydralazine for systolic blood pressure greater than 160 mmHg. 8. Hyperlipidemia; on pravastatin - Continue statin and check lipid profile. 9. Chronic hypoxic respiratory failure on 4 L continuously: 10. 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 On sitagliptin. Accu-Chek before meals and at bedtime with Humalog sliding scale coverage and hypoglycemia protocol. 03/09 glucoses controlled 118. A1c 6.3%. 11. Peripheral artery disease with history of left lower extremity ulcer statuspost aortofemoral bypass graft in 2009 and chronic venous insufficiency. Continue clopidogrel 12. Overweight; with BMI of 26 this admission - Weight loss will be recommended. 13. Chronic anemia - Stable with hemoglobin of 10.1 g/dL and MCV of 89.3 fL present on admission. Hemoglobin 9.3. Does not show significant drop or meet criteria for acute anemia 14. Chronic degenerative arthritis, give acetaminophen prn pain or fever DVT prophylaxis - Patient already on apixaban for #2 which will be continued. Discharge medication reconciliation done. Discharge follow-up instructions completed. Discharge process discussed with the patient and all questions wereanswered to patient's satisfaction. Follow with PCP in 1 to 2 weeks Total time spent, exact 35 minutes on discharge meds reconciliation, examination, coordination of care with nurses and ancillary staff, review of imaging and blood test and discussion with the patient on follow-up instructions. Clinical Impression(s) from Imaging Studies Chest X-Ray 03/04/25 14:59 IMPRESSION: Cardiomegaly and CHF with small right pleural effusion and bibasilar atelectasisworse at the right lung base. Reading Location: [facility] Echocardiogram 03/04/25 20:08 Interpretation Summary Moderate concentric left ventricular hypertrophy. The LV ejection fraction is 55 %. Stage 1 diastolic dysfunction. The left atrium is severely enlarged. Severe mitral valve annular calcification. Moderate posteriorly directed mitral valve regurgitation. Moderate tricuspid valve regurgitation. Estimated pulmonary artery systolic pressure 42 mmHg. Mild (1+) pulmonic valve insufficiency. The study was technically difficult. Ordering Physician: Nicola Lindsey Referring Physician: SCOTTY ELIZALDE Performed By: Haley Stevens and Student Chest X-Ray 03/05/25 04:30 IMPRESSION: Small interval improvement in right lung base aeration. Reading Location: [place] [address] Medications at Discharge Home Medications insulin glargine 100 unit/mL subcutaneous solution 30 unit SQ DAILY diabetes 11/19/19 multivitamin (Daily Multi-Vitamin tablet) 1 tab PO DAILY supplement 06/28/20 sitagliptin phosphate 50 mg tablet (Januvia) 50 mg PO DAILY diabetes 11/02/21 Held on 03/09/25. Instructions: Hold for at least 2 weeks until kidney function returns to baseline. Follow with PCP pravastatin 20 mg tablet 20 mg PO DAILY hyperlipidemia 01/17/22 cranberry 500 mg capsule 500 mg PO DAILY supplement 07/25/23 docusate sodium 100 mg capsule (Colace) 100 mg PO DAILY PRN stool softn 07/25/23 albuterol sulfate 90 mcg/actuation aerosol inhaler 2 puff inhalation Q4H PRN shortness of breath orwheezing #3 device 10/23/24 umeclidinium 62.5 mcg-vilanterol 25 mcg/actuation powdr for inhalation (Anoro Ellipta) 1 inh inhalation QDAY copd #60 ea 10/23/24 clopidogrel 75 mg tablet (Plavix) 75 mg PO DAILY atrial fibrillation #90 tabs 11/11/24 apixaban 5 mg tablet (Eliquis) 2.5 mg (1/2 x 5 mg) PO BID 30 days #30 tabs 03/09/25 diltiazem HCl 120 mg capsule,extended release 24 hr 120 mg PO DAILY 30 days #30 caps 03/09/25 guaifenesin 1,200 mg tablet, extended release 12 hr 1,200 mg PO Q12H 7 days #14 tabs 03/09/25 tamsulosin 0.4 mg capsule 0.4 mg PO DAILY@1730 30 days #30 caps 03/09/25 Physical Exam Narrative Seen and examined Shortness of breath is better. Leg edema is better. Cough is better. Heart rate is controlled, in atrial flutter, heart rate in 70s Patient also had urinary retention and a straight cath was placed. Discharged with a Claudio catheter. No syncope. Denies chest pain. Had CABG several yearsago and coronary stent prior to that. Denies burning with urination. Had bowel movement Physical exam: General: Alert, Oriented x3, Cooperative HEENT: Atraumatic, PERRLA, EOMI, Normocephalic. Oral: No Gingival or Mucosal Lesions/ Ulcerations Neck: Supple, No JVD, Negative Carotid Bruits Chest wall/Lungs: Air entry diminished in bilateral lung bases. No crepitation/rhonchi Cardiovascular: Irregular rhythm, Normal S1,S2, systolic murmur. CABG scar Abdomen: Bowel Sounds Present, Soft, Non Tender, Non-Distended : Claudio catheter. No renal angle tenderness. No suprapubic tenderness. Extremities: Mild pedal edema, Capillary Refill Less than 3 Seconds Skin: No rashes, No breakdown Musculoskeletal: No Tenderness to Palpation of Joints or Extremities Neurological: Cranial nerves II-XII grossly intact, DTR 2+/4. No acute focal neurological deficit. Psych/Mental Status: Normal Affect, Appropriate. Medical Records Data Medical Nutrition Assessment Dietitian: Malnutrition Criteria Met Start: 03/05/25 14:17 Freq: Status: Active Protocol: Document 03/05/25 14:17 SB (Rec: 03/05/25 14:17 SB [id number]) Nutrition Malnutrition Evidence of Yes Malnutrition Exists Malnutrition (severe Acute Illness/Injury ): Evidenced By Suboptimal Energy Intake (Severe),Weight Loss (Severe) Clinical Problem Acute Disease or Injury Related Malnutrition Etiology severe malnutrition in the context of lung cancer related to inadequate oral/energy intake Signs/Symptoms as evidenced by PO meeting <50% of estimated nutrition needs x 1 month and 10% unintentional weight loss x2 months Status Active Problem Recommendation Dietitian Liberalize to regular, no added salt diet due to signs Recommendations/ and symptoms of malnutrition. Changes Will order 120ml glucerna shake TID with meals. Will monitor weight trends. Weight / BMI Weight Weight: 173 lb 11.588 oz Body Mass Index (BMI) 28.0 ABG / Lab / Microbiology Data 03/09/25 08:21 03/09/25 08:21 Laboratory: Laboratory Results - last 24 hr 03/08/25 12:20: POC Glucose 128 H 03/08/25 16:33: POC Glucose 142 H 03/08/25 21:23: POC Glucose 132 H 03/09/25 06:22: POC Glucose 112 H 03/09/25 08:21: WBC 5.5, RBC 3.38 L, Hgb 9.3 L, Hct 29.6 L, MCV 87.6, MCH 27.5, MCHC 31.4 L, RDW Std Deviation 51.8 H, RDW Coeff of Reggie 16.3 H, Plt Count 162, MPV 10.0, Immature Gran % (Auto) 0.600, Neut % (Auto) 72.6 H, Lymph % (Auto) 9.7L, Hunt % (Auto) 12.1 H, Eos % (Auto) 4.8, Baso % (Auto) 0.2, Absolute Neuts (auto) 4.0, Absolute Lymphs (auto) 0.53 L, Nucleated RBC % 0, Sodium 138, Potassium4.3, Chloride 101, Carbon Dioxide 26.6, Anion Gap 10, BUN 50 H, Creatinine 2.41 H, Estim Creat Clear Calc 24.14 L, Est GFR (MDRD) Non-Af 26 L, BUN/Creatinine Ratio 20.8 H, Glucose 118 H, Calcium 9.0 03/09/25 11:43: POC Glucose 184 H Microbiology: Microbiology 03/06/25 18:40 Urine, Clean Catch Urine Culture - Final Culture exhibits no growth. D/C Instructions Weight Bearing Status: Weight bearing as tolerated Call your doctor if you observe: Fever of 101 or Higher, Coldness, Increased Pain, Numbness or Tingling, Change in Color, Inability to urinate, Inability to have a bowel movement, Shortness of breath, Dizziness, Fainting spells, Swellingin the ankles, Chest pain, Prolonged hiccupping, Increased palpitations (irregular heartbeat) and Calf discomfort DC O2, CPAP, BIPAP Needs Home O2 Discharge instructions: Yes Type of respiratory needs?: Oxygen Oxygen frequency: ContinuousContinuous oxygen liters per minute: 2 DC home with Oxygen: Yes Home O2 MD Review: I have reviewed the oxygen testing, and the patient qualifies for home oxygen equipment and portability. The patient is mobile in the home and the community. When: IN 2 WEEKS Meaningful Use Info Meaningful Use Meaningful Use Diagnoses (Choose all that apply): None applicable Discharge Plan Admission Admit Date/Time: 03/04/25 19:57 Primary Reason for Your Visit: Atrial flutter with RVR/tachybradycardia syndrome, CHF exacerbation Attending Provider: Deric Lantigua Primary Care Provider: Tonio Fajardo Consulting Providers: Nicola Lindsey; Paris Tiwari; Susan Hawley; Nicolette Mcdonald;Marjorie Green; Martin Vivas; Jose Lai; Issa Looney; Chago Miller; Willian Glaser; Orly Mitchell; Reinaldo Mclain; Santos Hsu; Iker Rodriguez NP; Leslie Arriaga PA; Tadeo Thakkar Instructions Additional Instructions / Restrictions: Discharge with Claudio catheter. Discharge Orders/Prescriptions Prescriptions: New diltiazem HCl 120 mg Capsule,Extended Release 24hr 120 mg PO DAILY 30 Days Qty: 30 2RF Eliquis 5 mg Tablet 2.5 mg PO BID 30 Days Qty: 30 3RF tamsulosin 0.4 mg Capsule 0.4 mg PO DAILY@1730 30 Days Qty: 30 2RF Continued multivitamin [Daily Multi-Vitamin] Tablet 1 tab PO DAILY pravastatin 20 mg tablet 20 mg PO DAILY docusate sodium [Colace] 100 mg capsule 100 mg PO DAILY PRN (Reason: stool softn) cranberry 500 mg capsule 500 mg PO DAILY Rx Instructions: administer with meals albuterol sulfate 90 mcg/actuation HFA aerosol inhaler 2 puff inhalation Q4H PRN (Reason: shortness of breath or wheezing) Qty: 3 3RF Rx Instructions: administer with spacer umeclidinium-vilanterol [Anoro Ellipta] 62.5-25 mcg/actuation blister with device 1 inh inhalation QDAY Qty: 60 3RF insulin glargine 100 UNIT/ML solution 30 unit SQ DAILY guaifenesin 1,200 mg tablet extended release 12hr 1,200 mg PO Q12H 7 Days Qty: 14 6RF clopidogrel [Plavix] 75 mg tablet 75 mg PO DAILY Qty: 90 3RF Held Januvia 50 mg Tablet 50 mg PO DAILY Hold Instructions: Hold for at least 2 weeks until kidney function returns to baseline. Follow withPCP Discontinued metoprolol tartrate 25 mg tablet 12.5 mg PO BID Qty: 45 7RF Eliquis 5 mg tablet 5 mg PO BID Qty: 180 3RF lisinopril 2.5 mg tablet 2.5 mg PO DAILY Qty: 90 3RF Referrals / Follow Up: Issa Looney MD [Med Staff - Active Staff] - Within 1 Month (Follow-up to evaluate for atrial flutter, tachybradycardia syndrome) Davon Saravia MD [Med Staff - Consulting] - Within 1 Month (For DARIUSZ on CKD) Tonio Fajardo DO [Primary Care Provider] - Leslie Arriaga PA [Med Staff - Adv Practice Prof] - Within 2 Weeks Rodolfo Rob MD [Med Staff - Active Staff] - Within 1 Week (Discharged with Claudio catheter.) Disposition Disposition (needs filled in before D/C Order can be placed): Home, Self Care Charges/Coding Visit Charges Inpatient E&M: 33906 Disch Hosp >30min 03/09/25 1251 Cosigner Signature (if applicable): CC: Dr. Tonio Fajardo DO; Dr. Willian Glaser MD; Dr. Deric Lantigua MD~ Signed [facility]21[facility] Discharge summary [facility] Medical Records Department [address] [place] [address] Instructions for Home/Discharge Instructions 03/09/25 1031 MR#: [id number] Acct: [id number] Name: PEDRO HILLMAN Rep #:[id number] : 1945 80 From: Deric Smith PCP: Dr. Tonio Fajardo, DO Status:ADM IN Discharge Instructions DC O2, CPAP, BIPAP needs Home O2 Discharge instructions: Yes Type of respiratory needs?: Oxygen Oxygen frequency: ContinuousContinuous oxygen liters per minute: 2 Dressing / Incision Discharge Activity: Return to Normal Activity Weight Bearing Status: Weight bearing as tolerated Dressing / Incision Call your doctor if you observe: Fever of 101 or Higher, Coldness, Increased Pain, Numbness or Tingling, Change in Color, Inability to urinate, Inability to have a bowel movement, Shortness of breath, Dizziness, Fainting spells, Swellingin the ankles, Chest pain, Prolonged hiccupping, Increased palpitations (irregular heartbeat) and Calf discomfort Follow Up Care When: IN 2 WEEKS Test Results: Test results from this visit will be discussed in further detail at your follow- up appointment, if applicable. Discharge Plan Admission Admit Date/Time: 03/04/25 19:57 Attending Provider: Deric Lantigua Primary Care Provider: Tonio Fajardo Consulting Providers: Nicola Lindsey; Paris Tiwari; Susan Hawley; Nicolette Mcdonald;Marjorie Green; Martin Vivas; Jose Lai; Issa Looney; Chago Miller; Willian Glaser; Orly Mitchell; Reinaldo Mclain; Santos Hsu; Iker Rodriguez NP; Leslie Arriaga; Tadeo Thakkar Discharge Orders/Prescriptions Prescriptions: New diltiazem HCl 120 mg Capsule,Extended Release 24hr 120 mg PO DAILY 30 Days Qty: 30 2RF Eliquis 5 mg Tablet 2.5 mg PO BID 30 Days Qty: 30 3RF Continued multivitamin [Daily Multi-Vitamin] Tablet 1 tab PO DAILY pravastatin 20 mg tablet 20 mg PO DAILY docusate sodium [Colace] 100 mg capsule 100 mg PO DAILY PRN (Reason: stool softn) cranberry 500 mg capsule 500 mg PO DAILY Rx Instructions: administer with meals albuterol sulfate 90 mcg/actuation HFA aerosol inhaler 2 puff inhalation Q4H PRN (Reason: shortness of breath or wheezing) Qty: 3 3RF Rx Instructions: administer with spacer umeclidinium-vilanterol [Anoro Ellipta] 62.5-25 mcg/actuation blister with device 1 inh inhalation QDAY Qty: 60 3RF insulin glargine 100 UNIT/ML solution 30 unit SQ DAILY guaifenesin 1,200 mg tablet extended release 12hr 1,200 mg PO Q12H 7 Days Qty: 14 6RF clopidogrel [Plavix] 75 mg tablet 75 mg PO DAILY Qty: 90 3RF Held Januvia 50 mg Tablet 50 mg PO DAILY Hold Instructions: Hold for at least 2 weeks until kidney function returns to baseline. Follow withPCP Discontinued metoprolol tartrate 25 mg tablet 12.5 mg PO BID Qty: 45 7RF Eliquis 5 mg tablet 5 mg PO BID Qty: 180 3RF lisinopril 2.5 mg tablet 2.5 mg PO DAILY Qty: 90 3RF Referrals / Follow Up: Issa Looney MD [Med Staff - Active Staff] - Within 1 Month (Follow-up to evaluate for atrial flutter, tachybradycardia syndrome) Davon Saravia MD [Med Staff - Consulting] - Within 1 Month (For DARIUSZ on CKD) Tonio Fajardo DO [Primary Care Provider] - Leslie Arriaga PA [Med Staff - Adv Practice Prof] - Within 2 Weeks Disposition Disposition (needs filled in before D/C Order can be placed): Home, Self Care 03/09/25 1244Pmaribel Lantigua MD CC: FARHEEN Rodriguez; Dr. Susan Hawley MD; Dr. Paris Tiwari MD; Dr. Marjorie Green MD; Dr. Nicolette Mcdonald MD; Dr. Martin Vivas MD; Dr. Jose Lai MD; Dr. Issa Looney MD; Dr. Nicola Lindsey DO; Dr. Chago Miller MD; Dr. Tonio Fajardo DO; Dr. Willian Glaser MD; Dr. Orly Mitchell MD;Dr. Santos Hsu MD; Dr. Reinaldo Mclain MD; RICKIE Kumari; RICKIE Cummins ~ Signed [facility]07-21-2025 Progress note Author Willian Glaser [facility] Note Date/Time March 09, 2025 9:53 am [facility] Medical Records Department [address] [place] [address] Progress Note - Cardiology 03/09/25 0943 MR#: [id number] Acct: [id number] Name: PEDRO HILLMAN Rep #:[id number] : 1945 80 From: Willian Glaser MD PCP: Dr. Tonio Fajardo DO Status:ADM IN Location: [place] [address] Subjective Subjective Patient evaluated in a seated position in the chair. Telemetry shows that he isin atrial fibrillation with a controlled ventricular response of 70-95 bpm. Thepatient's Eliquis will be decreased to 2.5 mg twice daily due to his creatinine of 3.1 and his age of 80. It appears he is tolerating the diltiazem 30 mg every8 hours. Objective Data Vital Signs: Vital Signs Temp Pulse Resp BP Pulse Ox O2 Del Method O2 Flow Rate 97.9 F 90 18 119/43 L 93 Nasal Cannula 2 03/09/25 05:15 03/09/25 06:51 03/09/25 06:51 03/09/25 05:15 03/09/25 06:51 03/09/25 06:51 03/09/25 06:51 Oxygen Flow Rate (L/min) 2 Oxygen Delivery Method Nasal Cannula Weight: 173 lb 11.588 oz Body Mass Index (BMI) 28.0 Intake & Output: Intake and Output for Last 24 Hours 03/07/25 03/08/25 03/09/25 23:59 23:59 23:59 Intake Total 50 / 50 600 / 600 60 / 60 Output Total 950 / 950 1625 / 1625 350 / 350 Balance -900 / -900 -1025 / -1025 -290 / -290 Lab / Micro Data Attestation: I reviewed the patient's lab results. 03/09/25 08:21 03/08/25 09:05 Labs: Laboratory Results - last 24 hr 03/08/25 12:20: POC Glucose 128 H 03/08/25 16:33: POC Glucose 142 H 03/08/25 21:23: POC Glucose 132 H 03/09/25 06:22: POC Glucose 112 H 03/09/25 08:21: WBC 5.5, RBC 3.38 L, Hgb 9.3 L, Hct 29.6 L, MCV 87.6, MCH 27.5, MCHC 31.4 L, RDW Std Deviation 51.8 H, RDW Coeff of Reggie 16.3 H, Plt Count 162, MPV 10.0, Immature Gran % (Auto) 0.600, Neut % (Auto) 72.6 H, Lymph % (Auto) 9.7L, Hunt % (Auto) 12.1 H, Eos % (Auto) 4.8, Baso % (Auto) 0.2, Absolute Neuts (auto) 4.0, Absolute Lymphs (auto) 0.53 L, Nucleated RBC % 0 Micro: Microbiology 03/06/25 18:40 Urine, Clean Catch Urine Culture - Final Culture exhibits no growth. Rhythm Strip Rhythm Strip: A-fib Rate: 90 Ectopy: None Cardiology Labs/Tests 03/09/25 08:21: WBC 5.5, RBC 3.38 L, Hgb 9.3 L, Hct 29.6 L, MCV 87.6, MCH 27.5, MCHC 31.4 L, Plt Count 162, MPV 10.0, Immature Gran % (Auto) 0.600, Neut % (Auto) 72.6 H, Lymph % (Auto) 9.7 L, Hunt % (Auto) 12.1 H, Eos % (Auto) 4.8, Baso % (Auto) 0.2, Absolute Neuts (auto) 4.0, Nucleated RBC % 0 Rhythm: EKG: ECHO: Stress Test: Cardiac Cath: PCI: CT Surgery: Holter monitor: EPS: PPM: CXR: Chest CT Scan: Physical Exam Const alert and oriented x3 Constitutional Narrative: Slow to answer questions and not sure who his physicians are. HEENT normocephalic Eyes EOMs intact bilaterally Neck no JVD Chest inspection of chest normal Resp normal respiratory effort Auscultation: diminished lung sounds bilateral lower Cardio Rate: regular rate Rhythm: abnormal rhythm irregularly irregular Heart Sounds: S1 normal and S2 normal; Negative for click, gallop or murmur Extremity no pedal edema Neuro Neuro Narrative: Alert and oriented x 3 Psych cooperative Psych Narrative: Slow to answer questions Assessment & Plan Assessment/Plan (1) Other persistent atrial fibrillation: PLAN: Patient is currently in atrial fibrillation telemetry shows heart rate 70- 95 bpm mostly in the 90 bpm range. He became bradycardic on the combination diltiazem and metoprolol. He is now well-controlled on diltiazem 30 mg every 8 hours. I would recommend changing this to Cardizem CD 120 mg once a day in the morning. The patient's Eliquis will be decreased to 2.5 mg twice daily given his creatinine of 3.1 and his age of 80. Echocardiogram done March 05, 2025 showed severe left atrial enlargement and EF of 55% moderate mitral regurgitation. From a cardiovascular standpoint the patient could be discharged to home or extended care facility which ever is felt to be most appropriate for his generalmedical care. (2) Coronary artery disease: QUALIFIERS: Coronary Disease-Associated Artery/Lesion type: nativeartery Inupiat vs. transplanted heart: [place] heart Associated angina: without angina Qualified Code(s): I25.10 - Atherosclerotic heart disease of [place] coronary artery without angina pectoris PLAN: Patient carries a history of bypass graft surgery followed [facility]. The patient should be reevaluated in 2 to 4 weeks in the [facility] with advanced practitioner. Given the patient's recovery and his overall general medical situation consideration may be given for to perform a pharmacologic nuclear stress test following that visit. The patient will be continued on rate control and oral anticoagulation as tolerated for his atrial fibs. (3) Chronic anticoagulation: PLAN: Long-term oral anticoagulation with Eliquis 2.5 mg twice daily. Age is 80and creatinine is 3.1. PLAN: Plan 1. Switch Cardizem to CD1 120 mg daily. 2. Continue Eliquis 2.5 mg twice daily. 3. At discharge patient should follow-up with the [facility] advanced practitioner in 2 to 3 weeks. 4. If further assistance is needed please reconsult the [facility]. Charges/Coding Visit Charges Inpatient E&M: 48093 Subs Hosp L3 03/09/25 0953 <Electronically signed by Willian Glaser MD> Cosigner Signature (if applicable): CC: ~ Signed [facility] Work Phone: 1(473) 425-676307-21-2025 Progress note [facility] Medical Records Department [address] [place] [address] Progress Note - Cardiology 03/09/25 0943 MR#: [id number] Acct: [id number] Name: PEDRO HILLMAN Rep #:[id number] : 1945 80 From: Willian Glaser MD PCP: Dr. Tonio Fajardo, DO Status:ADM IN Location: [place] [address] Subjective Subjective Patient evaluated in a seated position in the chair. Telemetry shows that he isin atrial fibrillation with a controlled ventricular response of 70-95 bpm. Thepatient's Eliquis will be decreased to 2.5 mg twice daily due to his creatinine of 3.1 and his age of 80. It appears he is tolerating the diltiazem 30 mg every8 hours. Objective Data Vital Signs: Vital Signs Temp Pulse Resp BP Pulse Ox O2 Del Method O2 Flow Rate 97.9 F 90 18 119/43 L 93 Nasal Cannula 2 03/09/25 05:15 03/09/25 06:51 03/09/25 06:51 03/09/25 05:15 03/09/25 06:51 03/09/25 06:51 03/09/25 06:51 Oxygen Flow Rate (L/min) 2 Oxygen Delivery Method Nasal Cannula Weight: 173 lb 11.588 oz Body Mass Index (BMI) 28.0 Intake & Output: Intake and Output for Last 24 Hours 03/07/25 03/08/25 03/09/25 23:59 23:59 23:59 Intake Total 50 / 50 600 / 600 60 / 60 Output Total 950 / 950 1625 / 1625 350 / 350 Balance -900 / -900 -1025 / -1025 -290 / -290 Lab / Micro Data Attestation: I reviewed the patient's lab results. 03/09/25 08:21 03/08/25 09:05 Labs: Laboratory Results - last 24 hr 03/08/25 12:20: POC Glucose 128 H 03/08/25 16:33: POC Glucose 142 H 03/08/25 21:23: POC Glucose 132 H 03/09/25 06:22: POC Glucose 112 H 03/09/25 08:21: WBC 5.5, RBC 3.38 L, Hgb 9.3 L, Hct 29.6 L, MCV 87.6, MCH 27.5, MCHC 31.4 L, RDW Std Deviation 51.8 H, RDW Coeff of Reggie 16.3 H, Plt Count 162, MPV 10.0, Immature Gran % (Auto) 0.600, Neut % (Auto) 72.6 H, Lymph % (Auto) 9.7L, Hunt % (Auto) 12.1 H, Eos % (Auto) 4.8, Baso % (Auto) 0.2, Absolute Neuts (auto) 4.0, Absolute Lymphs (auto) 0.53 L, Nucleated RBC % 0 Micro: Microbiology 03/06/25 18:40 Urine, Clean Catch Urine Culture - Final Culture exhibits no growth. Rhythm Strip Rhythm Strip: A-fib Rate: 90 Ectopy: None Cardiology Labs/Tests 03/09/25 08:21: WBC 5.5, RBC 3.38 L, Hgb 9.3 L, Hct 29.6 L, MCV 87.6, MCH 27.5, MCHC 31.4 L, Plt Count 162, MPV 10.0, Immature Gran % (Auto) 0.600, Neut % (Auto) 72.6 H, Lymph % (Auto) 9.7 L, Hunt % (Auto) 12.1 H, Eos % (Auto) 4.8, Baso % (Auto) 0.2, Absolute Neuts (auto) 4.0, Nucleated RBC % 0 Rhythm: EKG: ECHO: Stress Test: Cardiac Cath: PCI: CT Surgery: Holter monitor: EPS: PPM: CXR: Chest CT Scan: Physical Exam Const alert and oriented x3 Constitutional Narrative: Slow to answer questions and not sure who his physicians are. HEENT normocephalic Eyes EOMs intact bilaterally Neck no JVD Chest inspection of chest normal Resp normal respiratory effort Auscultation: diminished lung sounds bilateral lower Cardio Rate: regular rate Rhythm: abnormal rhythm irregularly irregular Heart Sounds: S1 normal and S2 normal; Negative for click, gallop or murmur Extremity no pedal edema Neuro Neuro Narrative: Alert and oriented x 3 Psych cooperative Psych Narrative: Slow to answer questions Assessment & Plan Assessment/Plan (1) Other persistent atrial fibrillation: PLAN: Patient is currently in atrial fibrillation telemetry shows heart rate 70- 95 bpm mostly in the 90 bpm range. He became bradycardic on the combination diltiazem and metoprolol. He is now well-controlled on diltiazem 30 mg every 8 hours. I would recommend changing this to Cardizem CD 120 mg once a day in the morning. The patient's Eliquis will be decreased to 2.5 mg twice daily given his creatinine of 3.1 and his age of 80. Echocardiogram done March 05, 2025 showed severe left atrial enlargement and EF of 55% moderate mitral regurgitation. From a cardiovascular standpoint the patient could be discharged to home or extended care facility which ever is felt to be most appropriate for his generalmedical care. (2) Coronary artery disease: QUALIFIERS: Coronary Disease-Associated Artery/Lesion type: nativeartery [place] vs. transplanted heart: [place] heart Associated angina: without angina Qualified Code(s): I25.10 - Atherosclerotic heart disease of [place] coronary artery without angina pectoris PLAN: Patient carries a history of bypass graft surgery followed in [facility]. The patient should be reevaluated in 2 to 4 weeks in the [facility] with advanced practitioner. Given the patient's recovery and his overall general medical situation consideration may be given for to perform a pharmacologic nuclear stress test following that visit. The patient will be continued on rate control and oral anticoagulation as tolerated for his atrial fibs. (3) Chronic anticoagulation: PLAN: Long-term oral anticoagulation with Eliquis 2.5 mg twice daily. Age is 80and creatinine is 3.1. PLAN: Plan 1. Switch Cardizem to CD1 120 mg daily. 2. Continue Eliquis 2.5 mg twice daily. 3. At discharge patient should follow-up with the [facility] advanced practitioner in 2 to3 weeks. 4. If further assistance is needed please reconsult the [facility]. Charges/Coding Visit Charges Inpatient E&M: 48031 [facility] Hosp 03/09/25 0953 Cosigner Signature (if applicable): CC: ~ Signed [facility]07-20-2025 Progress note Author Deric Lantigua [facility] Note Date/Time March 08, 2025 1:34 pm [facility] Medical Records Department [address] [place] [address] [place] [address] Progress Note - Hospitalist 03/08/25 0844 MR#: [id number] Acct: [id number] Name: PEDRO HILLMAN Rep #:[id number] : 1945 80 From: Deric Smith PCP: Dr. Tonio Fajardo, DO Status:ADM IN Location: [place] [address] Reason for Visit Chief Complaint: SOB. Objective Data Objective Data Vital Signs: Vital Signs Temp Pulse Resp BP Pulse Ox O2 Del Method O2 Flow Rate 98.1 F 52 L 16 97/38 L 98 Nasal Cannula 3 03/08/25 03:50 03/08/25 07:14 03/08/25 07:14 03/08/25 03:50 03/08/25 07:14 03/08/25 07:14 03/08/25 07:14 Oxygen Flow Rate (L/min) 3 Oxygen Delivery Method Nasal Cannula Weight: 163 lb 2.273 oz Body Mass Index (BMI) 26.3 Intake & Output: Intake and Output for Last 24 Hours 03/06/25 03/07/25 03/08/25 23:59 23:59 23:59 Intake Total 430 / 430 50 / 50 Output Total 2450 / 2450 950 / 950 400 / 400 Balance -2020 / -2020 -900 / -900 -400 / -400 Medical Nutrition Assessment Dietitian: Malnutrition Criteria Met Start: 03/05/25 14:17 Freq: Status: Active Protocol: Document 03/05/25 14:17 SB (Rec: 03/05/25 14:17 SB [id number]) Nutrition Malnutrition Evidence of Yes Malnutrition Exists Malnutrition (severe Acute Illness/Injury ): Evidenced By Suboptimal Energy Intake (Severe),Weight Loss (Severe) Clinical Problem Acute Disease or Injury Related Malnutrition Etiology severe malnutrition in the context of lung cancer related to inadequate oral/energy intake Signs/Symptoms as evidenced by PO meeting <50% of estimated nutrition needs x 1 month and 10% unintentional weight loss x2 months Status Active Problem Recommendation Dietitian Liberalize to regular, no added salt diet due to signs Recommendations/ and symptoms of malnutrition. Changes Will order 120ml glucerna shake TID with meals. Will monitor weight trends. Lab / Micro Data 03/05/25 06:08 03/08/25 09:05 Labs: Laboratory Results - last 24 hr 03/07/25 11:59: POC Glucose 184 H 03/07/25 16:56: POC Glucose 191 H 03/07/25 22:10: POC Glucose 151 H 03/08/25 04:23: Sodium 135, Potassium 5.3 H, Chloride 99, Carbon Dioxide 27.0, Anion Gap 10, BUN 62 H, Creatinine 3.11 H, Estim Creat Clear Calc 17.10 L, Est GFR (MDRD) Non-Af 19 L, BUN/Creatinine Ratio 19.9, Glucose 127 H, Calcium 8.8, Magnesium 2.3 H 03/08/25 06:35: POC Glucose 122 H Micro: Microbiology 03/06/25 18:40 Urine, Clean Catch Urine Culture - Preliminary Culture exhibits no growth. Rhythm Strip Rhythm Strip: Atrial flutter Rate: 108 Ectopy: None Physical Exam Narrative Seen and examined Shortness of breath is better. Leg edema is better. Heart rate and BP low, heart rate was low 40s and blood pressure in low 90s yesterday. Patient also sustained 11 beats of V. tach. laboratory monitor reviewed. Still in A-fib/flutter with bradycardia. Shortness of breath is better. Patient also had urinary retention and a straight cath was placed. Again had urine retention therefore Claudio catheter was inserted. No syncope. Denies chest pain. Had CABG several years ago and coronary stent prior to that. Denies burning with urination. Had bowel movement Physical exam: General: Alert, Oriented x3, Cooperative HEENT: Atraumatic, PERRLA, EOMI, Normocephalic. Oral: No Gingival or Mucosal Lesions/ Ulcerations Neck: Supple, No JVD, Negative Carotid Bruits Chest wall/Lungs: Air entry diminished in bilateral lung bases. No crepitation/rhonchi Cardiovascular: Irregular rhythm, Normal S1,S2, systolic murmur. CABG scar Abdomen: Bowel Sounds Present, Soft, Non Tender, Non-Distended : No dysuria. No renal angle tenderness. No suprapubic tenderness. Extremities: Mild pedal edema, Capillary Refill Less than 3 Seconds Skin: No rashes, No breakdown Musculoskeletal: No Tenderness to Palpation of Joints or Extremities Neurological: Cranial nerves II-XII grossly intact, DTR 2+/4. No acute focal neurological deficit. Psych/Mental Status: Normal Affect, Appropriate. Assessment & Plan Assessment/Plan (1) CHF exacerbation: QUALIFIERS: Heart failure type: unspecified Qualified Code(s): I50.9 - Heart failure, unspecified (2) Atrial flutter with rapid ventricular response: (3) Chronic anticoagulation: (4) Elevated troponin: (5) Hyperkalemia: (6) Pleural effusion on right: (7) Acute cystitis with hematuria: (8) Atherosclerosis of coronary artery of [place] heart without angina pectoris: QUALIFIERS: Coronary Disease-Associated Artery/Lesion type: nativeartery Qualified Code(s): I25.10 - Atherosclerotic heart disease of [place] coronary artery without angina pectoris (9) Overweight (BMI 25.0-29.9): PLAN: Plan 80-year-old gentleman on 4 L of O2 with history of lung cancer/COPD was admittedwith shortness of breath for 1 day. Noted hypoxia 78 to 80% on room air on EMS. No leg swelling. No fever chest pain. Denies any change in cough. EMS vitalsshows tachycardia heart rate 120/min, glucose 174, pulse ox 83%, end-tidal 30. 1. Acute exacerbation of chronic HFpEF: Patient admitted in PCU. elevated NT pro-BNP II of 3,316 pg/mL with a corresponding CXR that revealed cardiomegaly and CHF with small right pleural effusion and bibasilar atelectasis worse at theRight lung base Maintain metoprolol and lisinopril as before. 03/05: Heart failure core measures including intake and output, fluid restrictionless than 1500 mL, daily weight monitoring, kidney and electrolytes monitoring. On furosemide 40 mg twice daily. Serial troponins 44, 45 and 42 therefore no significant delta change. ACS ruled out. [facility] Professional is consulted. Repeat proBNP is elevated but it does not reflect treatment response as it should not be ordered for that. Clinically patient is feeling better with improvement in shortness of breath. 2D echo 03/05 reported EF 55%, PASP 42 mmHg with moderate TR, moderate IA and mild PI. 03/06: Furosemide changed to 40 g daily. Patient is over diuresed. 03/07 hold Lasix. 03/08: Mild leg swelling. [place]jas wrap bandage ordered 2. EKG evidence of Atrial Flutter; with Rapid Ventricular Response of ~117 bpm even after being treated with IV Cardizem bolus probably precipitating CHF exacerbation: Patient already on apixaban patient had digoxin. TSH 3.7 normal. Twelve-lead EKG individually reviewed and shows atrial flutter 2 is to 1 conduction. Later on irregular variable conduction on bus driver/monitor 03/06: Discussed with the calliope player. Metoprolol increased to 25 mg twice daily, Cardizem 60 mg Q6 hourly. If heart rate controlled, will switch to long-acting Cardizem CD. 03/07: Bradycardia heart rate dropped to 40s. Hold metoprolol in the morning andresume from night. Heart rate improved from 40s to 62, 76/m. Resume metoprololfrom tonight. Cardizem regular changed to Cardizem CD 120 mg twice daily with holding parameters. Discussed with the patient's daughter, she was not comfortable taking home. Will try to establish heart rate. 03/08: Patient still bradycardic. Last night he had Cardizem 120 mg and heart rate in 40s and blood pressure in the 90s. Discussed with the calliope player. Advised to discontinue to discontinue metoprolol and Cardizem 30 mg Q8 hourly with holding parameters. This was informed to the patient's daughter. I also discussed about the CODE STATUS that is full code with his guarded prognosis in view of multiple cardiac disease and cardiac surgery including bypass in 2012 and aortobifemoral bypass in 2009. She noticed an old discussed with her other family member and was updated about the CODE STATUS. 3. DARIUSZ on CKD; stage IIIb with hyperkalemia, present on admission:-serum creatinine of 1.86 mg/dL, BUN of 37 mg/dL and EGFR of 36 mL/min present on admission. Treated with IV furosemide. Repeat potassium 5.0 slightly better than 5.2. His baseline creatinine runs around 2.21-2.36. Admitted with 1.87, today 1.86. 03/06: Furosemide changed to oral once daily. 03/07 creatinine jumped to 2.23, 3.09. BUN 56. Hold furosemide for next few days. Monitor kidney function tomorrow a.m. 03/08: Creatinine increased to 3.11 but patient had good urine output 900 mL yesterday and 400 mL since midnight today. Nonoliguric DARIUSZ. Patient has Claudio catheter which resulted last night. Flomax started. Urine culture shows no growth. 5. UA positive for Acute Cystitis; with microscopic hematuria:- Start IV ceftriaxone empirically. Urine culture ordered 6. CAD; s/p CABG x 3 (2012) - 7. Essential hypertension; on lisinopril and metoprolol BID - Resume home regimen plus give as needed IV hydralazine for systolic blood pressure greater than 160 mmHg. 8. Hyperlipidemia; on pravastatin - Continue statin and check lipid profile. 9. Chronic hypoxic respiratory failure on 4 L continuously: 10. 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 On sitagliptin. Accu-Chek before meals and at bedtime with Humalog sliding scale coverage and hypoglycemia protocol. 11. Peripheral artery disease with history of left lower extremity ulcer statuspost aortofemoral bypass graft in 2009 and chronic venous insufficiency. Continue clopidogrel 12. Overweight; with BMI of 26 this admission - Weight loss will be recommended. 13. Chronic anemia - Stable with hemoglobin of 10.1 g/dL and MCV of 89.3 fL present on admission. Hemoglobin 9.3. Does not show significant drop or meet criteria for acute anemia 14. Chronic degenerative arthritis, give acetaminophen prn pain or fever DVT prophylaxis - Patient already on apixaban for #2 which will be continued. Microbiology Past 72 Hours 03/06/25 18:40 Urine, Clean Catch Urine Culture - Preliminary Culture exhibits no growth. Laboratory Results 03/07/25 11:59: POC Glucose 184 H 03/07/25 16:56: POC Glucose 191 H 03/07/25 22:10: POC Glucose 151 H 03/08/25 04:23: Sodium 135, Potassium 5.3 H, Chloride 99, Carbon Dioxide 27.0, Anion Gap 10, BUN 62 H, Creatinine 3.11 H, Estim Creat Clear Calc 17.10 L, Est GFR (MDRD) Non-Af 19 L, BUN/Creatinine Ratio 19.9, Glucose 127 H, Calcium 8.8, Magnesium 2.3 H 03/08/25 06:35: POC Glucose 122 H 03/08/25 09:05: Potassium 5.5 H Clinical Impression(s) from Imaging Studies Chest X-Ray 03/04/25 14:59 IMPRESSION: Cardiomegaly and CHF with small right pleural effusion and bibasilar atelectasisworse at the right lung base. Reading Location: [facility] Echocardiogram 03/04/25 20:08 Interpretation Summary Moderate concentric left ventricular hypertrophy. The LV ejection fraction is 55 %. Stage 1 diastolic dysfunction. The left atrium is severely enlarged. Severe mitral valve annular calcification. Moderate posteriorly directed mitral valve regurgitation. Moderate tricuspid valve regurgitation. Estimated pulmonary artery systolic pressure 42 mmHg. Mild (1+) pulmonic valve insufficiency. The study was technically difficult. Ordering Physician: Nicola Lindsey Referring Physician: SCOTTY ELIZALDE Performed By: Haley Stevens and Student Chest X-Ray 03/05/25 04:30 IMPRESSION: Small interval improvement in right lung base aeration. Reading Location: [place] [address] Charges/Coding Addendum Addendum: Total time of the visit including total time spent in counseling or coordinationof care, (more than 50% of the total time, spent in obtaining medical information from nurses and other ancillary care providers ,explaining to the patient about labs, imaging, diagnosis and management of active complex medical conditions), multiple active cardiac issues, urinary retention discussion with calliope player and clinical update given to patient's uifobtrf-gn-klx, review of labs and imaging is 35 minutes. Visit Charges Inpatient E&M: 62384 Subs Hosp L3 03/08/25 1040 <Electronically signed by Deric Lantigua MD> Cosigner Signature (if applicable): CC: ~ Signed ADDENDUM by Dr. Deric Lantigua MD on 03/08/25 at 1334 Addendum The patient's son and jukdoqcp-jg-kzv came to visit him. They decided patient to be DNR CC arrest with no intubation CODE STATUS changed. Living will/advanced directive/end of life care: Patient does not have living will or advanced directive. He is next of kin is his son and xfcpdien-qt-wow. After discussion of benefits/risks procedures involved with full code, DNR CC arrest and DNR CC, the patient and his iyijidys-lu-dfw he opted for DNR CC arrest with no intubation. Patient also said that he does not want pacemaker but his qrmkfses-ag-xdt and son will discuss with him Patient does want artificial life support including intubation, tube feed, ventilator and/chest compression, central venous catheter, vasopressor and DC shock if needed Total time spent in jnrb-ix-bwbl encounter in discussion of advanced directive 17 minutes. 03/08/25 1334<Electronically signed by Deric Lantigua MD> Cosigner Signature (if applicable): cc: ~* Signed [facility] Work Phone: 1(596) 551-462407-20-2025 Progress note [facility] Medical Records Department [address] [place] [address] Progress Note - Hospitalist 03/08/25 0844 MR#: [id number] Acct: [id number] Name: PEDRO HILLMAN Rep #:[id number] : 1945 80 From: Deric Smith PCP: Dr. Tonio Fajardo, DO Status:ADM IN Location: [place] [address] Reason for Visit Chief Complaint: SOB. Objective Data Objective Data Vital Signs: Vital Signs Temp Pulse Resp BP Pulse Ox O2 Del Method O2 Flow Rate 98.1 F 52 L 16 97/38 L 98 Nasal Cannula 3 03/08/25 03:50 03/08/25 07:14 03/08/25 07:14 03/08/25 03:50 03/08/25 07:14 03/08/25 07:14 03/08/25 07:14 Oxygen Flow Rate (L/min) 3 Oxygen Delivery Method Nasal Cannula Weight: 163 lb 2.273 oz Body Mass Index (BMI) 26.3 Intake & Output: Intake and Output for Last 24 Hours 03/06/25 03/07/25 03/08/25 23:59 23:59 23:59 Intake Total 430 / 430 50 / 50 Output Total 2450 / 2450 950 / 950 400 / 400 Balance -2020 / -2020 -900 / -900 -400 / -400 Medical Nutrition Assessment Dietitian: Malnutrition Criteria Met Start: 03/05/25 14:17 Freq: Status: Active Protocol: Document 03/05/25 14:17 SB (Rec: 03/05/25 14:17 SB [id number]) Nutrition Malnutrition Evidence of Yes Malnutrition Exists Malnutrition (severe Acute Illness/Injury ): Evidenced By Suboptimal Energy Intake (Severe),Weight Loss (Severe) Clinical Problem Acute Disease or Injury Related Malnutrition Etiology severe malnutrition in the context of lung cancer related to inadequate oral/energy intake Signs/Symptoms as evidenced by PO meeting <50% of estimated nutrition needs x 1 month and 10% unintentional weight loss x2 months Status Active Problem Recommendation Dietitian Liberalize to regular, no added salt diet due to signs Recommendations/ and symptoms of malnutrition. Changes Will order 120ml glucerna shake TID with meals. Will monitor weight trends. Lab / Micro Data 03/05/25 06:08 03/08/25 09:05 Labs: Laboratory Results - last 24 hr 03/07/25 11:59: POC Glucose 184 H 03/07/25 16:56: POC Glucose 191 H 03/07/25 22:10: POC Glucose 151 H 03/08/25 04:23: Sodium 135, Potassium 5.3 H, Chloride 99, Carbon Dioxide 27.0, Anion Gap 10, BUN 62H, Creatinine 3.11 H, Estim Creat Clear Calc 17.10 L, Est GFR (MDRD) Non-Af 19 L, BUN/Creatinine Ratio 19.9, Glucose 127 H, Calcium 8.8, Magnesium 2.3 H 03/08/25 06:35: POC Glucose 122 H Micro: Microbiology 03/06/25 18:40 Urine, Clean Catch Urine Culture - Preliminary Culture exhibits no growth. Rhythm Strip Rhythm Strip: Atrial flutter Rate: 108 Ectopy: None Physical Exam Narrative Seen and examined Shortness of breath is better. Leg edema is better. Heart rate and BP low, heart rate was low 40s and blood pressure in low 90s yesterday. Patient alsosustained 11 beats of V. tach. laboratory monitor reviewed. Still in A-fib/flutter with bradycardia. Shortness of breath is better. Patient also had urinary retention and a straight cath was placed. Again had urine retention therefore Claudio catheter was inserted. No syncope. Denies chest pain. Had CABG several years ago and coronary stent prior to that. Denies burning with urination. Had bowel movement Physical exam: General: Alert, Oriented x3, Cooperative HEENT: Atraumatic, PERRLA, EOMI, Normocephalic. Oral: No Gingival or Mucosal Lesions/ Ulcerations Neck: Supple, No JVD, Negative Carotid Bruits Chest wall/Lungs: Air entry diminished in bilateral lung bases. No crepitation/rhonchi Cardiovascular: Irregular rhythm, Normal S1,S2, systolic murmur. CABG scar Abdomen: Bowel Sounds Present, Soft, Non Tender, Non-Distended : No dysuria. No renal angle tenderness. No suprapubic tenderness. Extremities: Mild pedal edema, Capillary Refill Less than 3 Seconds Skin: No rashes, No breakdown Musculoskeletal: No Tenderness to Palpation of Joints or Extremities Neurological: Cranial nerves II-XII grossly intact, DTR 2+/4. No acute focal neurological deficit. Psych/Mental Status: Normal Affect, Appropriate. Assessment & Plan Assessment/Plan (1) CHF exacerbation: QUALIFIERS: Heart failure type: unspecified Qualified Code(s): I50.9 - Heart failure, unspecified (2) Atrial flutter with rapid ventricular response: (3) Chronic anticoagulation: (4) Elevated troponin: (5) Hyperkalemia: (6) Pleural effusion on right: (7) Acute cystitis with hematuria: (8) Atherosclerosis of coronary artery of [place] heart without angina pectoris: QUALIFIERS: Coronary Disease-Associated Artery/Lesion type: nativeartery Qualified Code(s): I25.10 - Atherosclerotic heart disease of [place] coronary artery without angina pectoris (9) Overweight (BMI 25.0-29.9): PLAN: Plan 80-year-old gentleman on 4 L of O2 with history of lung cancer/COPD was admittedwith shortness of breath for 1 day. Noted hypoxia 78 to 80% on room air on EMS. No leg swelling. No fever chest pain. Denies any change in cough. EMS vitalsshows tachycardia heart rate 120/min, glucose 174, pulse ox 83%, end-tidal 30. 1. Acute exacerbation of chronic HFpEF: Patient admitted in PCU. elevated NT pro-BNP II of 3,316 pg/mL with a corresponding CXR that revealed cardiomegaly and CHF with small right pleural effusion and bibasilar atelectasis worse at theRight lung base Maintain metoprolol and lisinopril as before. 03/05: Heart failure core measures including intake and output, fluid restrictionless than 1500 mL, daily weight monitoring, kidney and electrolytes monitoring. On furosemide 40 mg twice daily. Serialtroponins 44, 45 and 42 therefore no significant delta change. ACS ruled out. [employer] Professional is consulted. Repeat proBNP is elevated but it does not reflect treatment response as it should not be ordered for that. Clinically patient is feeling better with improvement in shortness of breath. 2D echo 03/05 reported EF 55%, PASP 42 mmHg with moderate TR, moderate IA and mild PI. 03/06: Furosemide changed to 40 g daily. Patient is over diuresed. 03/07 hold Lasix. 03/08: Mild leg swelling. Tejas wrap bandage ordered 2. EKG evidence of Atrial Flutter; with Rapid Ventricular Response of ~117 bpm even after being treated with IV Cardizem bolus probably precipitating CHF exacerbation: Patient already on apixaban patient had digoxin. TSH 3.7 normal. Twelve-lead EKG individually reviewed and shows atrial flutter 2 is to 1 conduction. Later on irregular variable conduction on bus driver/monitor 03/06: Discussed with the calliope player. Metoprolol increased to 25 mg twice daily, Cardizem 60 mg [id number]. If heart rate controlled, will switch to long- acting Cardizem CD. 03/07: Bradycardia heart rate dropped to 40s. Hold metoprolol in the morning andresume from night. Heart rate improved from 40s to 62, 76/m. Resume metoprololfrom tonight. Cardizem regular changed to Cardizem CD 120 mg twice daily with holding parameters. Discussed with the patient's daughter, she was not comfortable taking home. Will try to establish heart rate. 03/08: Patient still bradycardic. Last night he had Cardizem 120 mg and heart rate in 40s and blood pressure in the 90s. Discussed with the calliope player. Advised to discontinue to discontinue metoprolol and Cardizem 30 mg Q8 hourly with holding parameters. This was informed to the patient's daughter. I also discussed about the CODE STATUS that is full code with his guarded prognosis in view of multiple cardiac disease and cardiac surgery including bypass in 2012 and aortobifemoral bypass in 2009. She noticed an old discussed with her other family member and was updated about the CODE STATUS. 3. DARIUSZ on CKD; stage IIIb with hyperkalemia, present on admission:-serum creatinine of 1.86 mg/dL, BUN of 37 mg/dL and EGFR of 36 mL/min present on admission. Treated with IV furosemide. Repeat potassium 5.0 slightly better than 5.2. His baseline creatinine runs around 2.21-2.36. Admitted with 1.87, today 1.86. 03/06: Furosemide changed to oral once daily. 03/07 creatinine jumped to 2.23, 3.09. BUN 56. Hold furosemide for next few days. Monitor kidney function tomorrow a.m. 03/08: Creatinine increased to 3.11 but patient had good urine output 900 mL yesterday and 400 mL since midnight today. Nonoliguric DARIUSZ. Patient has Claudio catheter which resulted last night. Flomax started. Urine culture shows no growth. 5. UA positive for Acute Cystitis; with microscopic hematuria:- Start IV ceftriaxone empirically. Urine culture ordered 6. CAD; s/p CABG x 3 (2012) - 7. Essential hypertension; on lisinopril and metoprolol BID - Resume home regimen plus give as needed IV hydralazine for systolic blood pressure greater than 160 mmHg. 8. Hyperlipidemia; on pravastatin - Continue statin and check lipid profile. 9. Chronic hypoxic respiratory failure on 4 L continuously: 10. 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 On sitagliptin. Accu-Chek before meals and at bedtime with Humalog sliding scale coverage and hypoglycemia protocol. 11. Peripheral artery disease with history of left lower extremity ulcer statuspost aortofemoral bypass graft in 2009 and chronic venous insufficiency. Continue clopidogrel 12. Overweight; with BMI of 26 this admission - Weight loss will be recommended. 13. Chronic anemia - Stable with hemoglobin of 10.1 g/dL and MCV of 89.3 fL present on admission. Hemoglobin 9.3. Does not show significant drop or meet criteria for acute anemia 14. Chronic degenerative arthritis, give acetaminophen prn pain or fever DVT prophylaxis - Patient already on apixaban for #2 which will be continued. Microbiology Past 72 Hours 03/06/25 18:40 Urine, Clean Catch Urine Culture - Preliminary Culture exhibits no growth. Laboratory Results 03/07/25 11:59: POC Glucose 184 H 03/07/25 16:56: POC Glucose 191 H 03/07/25 22:10: POC Glucose 151 H 03/08/25 04:23: Sodium 135, Potassium 5.3 H, Chloride 99, Carbon Dioxide 27.0, Anion Gap 10, BUN 62H, Creatinine 3.11 H, Estim Creat Clear Calc 17.10 L, Est GFR (MDRD) Non-Af 19 L, BUN/Creatinine Ratio 19.9, Glucose 127 H, Calcium 8.8, Magnesium 2.3 H 03/08/25 06:35: POC Glucose 122 H 03/08/25 09:05: Potassium 5.5 H Clinical Impression(s) from Imaging Studies Chest X-Ray 03/04/25 14:59 IMPRESSION: Cardiomegaly and CHF with small right pleural effusion and bibasilar atelectasisworse at the right lung base. Reading Location: [facility] Echocardiogram 03/04/25 20:08 Interpretation Summary Moderate concentric left ventricular hypertrophy. The LV ejection fraction is 55 %. Stage 1 diastolic dysfunction. The left atrium is severely enlarged. Severe mitral valve annular calcification. Moderate posteriorly directed mitral valve regurgitation. Moderate tricuspid valve regurgitation. Estimated pulmonary artery systolic pressure 42 mmHg. Mild (1+) pulmonic valve insufficiency. The study was technically difficult. Ordering Physician: Nicola Lindsey Referring Physician: SCOTTY ELIZALDE Performed By: Haley Stevens and Student Chest X-Ray 03/05/25 04:30 IMPRESSION: Small interval improvement in right lung base aeration. Reading Location: [place] [address] Charges/Coding Addendum Addendum: Total time of the visit including total time spent in counseling or coordinationof care, (more than50% of the total time, spent in obtaining medical information from nurses and other ancillary care providers ,explaining to the patient about labs, imaging, diagnosis and management of active complexmedical conditions), multiple active cardiac issues, urinary retention discussion with cardiologistand clinical update given to patient's vpymkvxz-rp-ccu, review of labs and imaging is 35 minutes. Visit Charges Inpatient E&M: 27367 Subs Hosp L3 03/08/25 1040 Cosigner Signature (if applicable): CC: ~ Signed ADDENDUM by Dr. Deric Lantigua MD on 03/08/25 at 1334 Addendum The patient's son and yjcsvatd-nn-iai came to visit him. They decided patient to be DNR CC arrest with no intubation CODE STATUS changed. Living will/advanced directive/end of life care: Patient does not have living will or advanced directive. He is next of kin is his son and joeulmhy-pa-kup. After discussion of benefits/risks procedures involved with full code, DNR CC arrest and DNR CC, the patient and his cbqefgah-yq-gtr he opted for DNR CC arrest with no intubation. Patient also said that he does not want pacemaker but his lyydqxlx-yz-crm and son will discuss with him Patient does want artificial life support including intubation, tube feed, ventilator and/chest compression, central venous catheter, vasopressor and DC shock if needed Total time spent in bfdc-hf-wvtg encounter in discussion of advanced directive 17 minutes. 03/08/25 1334 Cosigner Signature (if applicable): cc: ~* Signed [facility]07-20-2025 Progress note Author Marjorie Green [facility] Note Date/Time March 08, 2025 8:51 am [facility] Medical Records Department [address] [place] [address] Progress Note - Cardiology 03/08/25 0848 MR#: [id number] Acct: [id number] Name: PEDRO HILLMAN Rep #:[id number] : 1945 80 From: Marjorie Green MD PCP: Dr. Tonio Fajardo, DO Status:ADM IN Location: [place] [address] Subjective Subjective Denies any complaints. Became bradycardic with diltiazem and metoprolol. Borderline blood pressure. Objective Data Vital Signs: Vital Signs Temp Pulse Resp BP Pulse Ox O2 Del Method O2 Flow Rate 98.1 F 52 L 16 97/38 L 98 Nasal Cannula 3 03/08/25 03:50 03/08/25 07:14 03/08/25 07:14 03/08/25 03:50 03/08/25 07:14 03/08/25 07:14 03/08/25 07:14 Oxygen Flow Rate (L/min) 3 Oxygen Delivery Method Nasal Cannula Weight: 163 lb 2.273 oz Body Mass Index (BMI) 26.3 Intake & Output: Intake and Output for Last 24 Hours 03/06/25 03/07/25 03/08/25 23:59 23:59 23:59 Intake Total 430 / 430 50 / 50 Output Total 2450 / 2450 950 / 950 400 / 400 Balance -2020 / -2020 -900 / -900 -400 / -400 Lab / Micro Data 03/05/25 06:08 03/08/25 04:23 Labs: Laboratory Results - last 24 hr 03/07/25 11:59: POC Glucose 184 H 03/07/25 16:56: POC Glucose 191 H 03/07/25 22:10: POC Glucose 151 H 03/08/25 04:23: Sodium 135, Potassium 5.3 H, Chloride 99, Carbon Dioxide 27.0, Anion Gap 10, BUN 62 H, Creatinine 3.11 H, Estim Creat Clear Calc 17.10 L, Est GFR (MDRD) Non-Af 19 L, BUN/Creatinine Ratio 19.9, Glucose 127 H, Calcium 8.8, Magnesium 2.3 H 03/08/25 06:35: POC Glucose 122 H Micro: Microbiology 03/06/25 18:40 Urine, Clean Catch Urine Culture - Preliminary Culture exhibits no growth. Rhythm Strip Rhythm Strip: Atrial flutter Rate: 108 Ectopy: None Cardiology Labs/Tests 03/08/25 04:23: Sodium 135, Potassium 5.3 H, Chloride 99, Carbon Dioxide 27.0, Anion Gap 10, BUN 62 H, Creatinine 3.11 H, Est GFR (MDRD) Non-Af 19 L, BUN/Creatinine Ratio 19.9, Glucose 127 H, Calcium 8.8, Magnesium 2.3 H Rhythm: EKG: ECHO: Stress Test: Cardiac Cath: PCI: CT Surgery: Holter monitor: EPS: PPM: CXR: Chest CT Scan: Physical Exam Narrative Comfortable. No apparent distress. Heart sounds 1 and 2 noted. Tachycardic. Chest clear to auscultation bilaterally. Alert oriented x 3. Trace bilateral ankle edema. Assessment & Plan Assessment/Plan (1) Atrial flutter with rapid ventricular response: PLAN: Sick sinus syndrome. Bradycardic with to 240 mg of diltiazem and 25 twicedaily of metoprolol. DC metoprolol. Decrease diltiazem to 30 mg every 6 hours. (2) Acute on chronic diastolic congestive heart failure: PLAN: Continue furosemide. Changed to 40 mg daily. Monitor electrolytes. (3) Coronary artery disease: PLAN: History of CABG. Continue beta-blockers. Statins. On apixaban. Recommend pharmacological stress test as outpatient. (4) Mitral valve regurgitation: PLAN: Furosemide. ACEI. (5) Tricuspid valve regurgitation: PLAN: Furosemide. (6) Hypertension: QUALIFIERS: Hypertension type: essential hypertension Qualified Code(s): I10 - Essential (primary) hypertension PLAN: Blood pressure borderline. DC metoprolol. Furosemide being held for acute renal insufficiency. DC lisinopril. (7) Diabetes: PLAN: As per internal medicine. (8) Peripheral arterial disease: PLAN: Follows with vascular surgery. On clopidogrel. 03/08/25 0851 <Electronically signed by Marjorie Green MD> Cosigner Signature (if applicable): CC: ~ Signed [facility] Work Phone: 1(200) 402-745307-20-2025 Progress note [facility] Medical Records Department [address] [place] [id number] Progress Note - Cardiology 03/08/25 0848 MR#: [id number] Acct: [id number] Name: PEDRO HILLMAN Rep #:[id number] : 1945 80 From: Marjorie Green MD PCP: Dr. Tonio Fajardo, Status:ADM IN Location: [place] [address] Subjective Subjective Denies any complaints. Became bradycardic with diltiazem and metoprolol. Borderline blood pressure. Objective Data Vital Signs: Vital Signs Temp Pulse Resp BP Pulse Ox O2 Del Method O2 Flow Rate 98.1 F 52 L 16 97/38 L 98 Nasal Cannula 3 03/08/25 03:50 03/08/25 07:14 03/08/25 07:14 03/08/25 03:50 03/08/25 07:14 03/08/25 07:14 03/08/25 07:14 Oxygen Flow Rate (L/min) 3 Oxygen Delivery Method Nasal Cannula Weight: 163 lb 2.273 oz Body Mass Index (BMI) 26.3 Intake & Output: Intake and Output for Last 24 Hours 03/06/25 03/07/25 03/08/25 23:59 23:59 23:59 Intake Total 430 / 430 50 / 50 Output Total 2450 / 2450 950 / 950 400 / 400 Balance -2020 / -2020 -900 / -900 -400 / -400 Lab / Micro Data 03/05/25 06:08 03/08/25 04:23 Labs: Laboratory Results - last 24 hr 03/07/25 11:59: POC Glucose 184 H 03/07/25 16:56: POC Glucose 191 H 03/07/25 22:10: POC Glucose 151 H 03/08/25 04:23: Sodium 135, Potassium 5.3 H, Chloride 99, Carbon Dioxide 27.0, Anion Gap 10, BUN 62H, Creatinine 3.11 H, Estim Creat Clear Calc 17.10 L, Est GFR (MDRD) Non-Af 19 L, BUN/Creatinine Ratio 19.9, Glucose 127 H, Calcium 8.8, Magnesium 2.3 H 03/08/25 06:35: POC Glucose 122 H Micro: Microbiology 03/06/25 18:40 Urine, Clean Catch Urine Culture - Preliminary Culture exhibits no growth. Rhythm Strip Rhythm Strip: Atrial flutter Rate: 108 Ectopy: None Cardiology Labs/Tests 03/08/25 04:23: Sodium 135, Potassium 5.3 H, Chloride 99, Carbon Dioxide 27.0, Anion Gap 10, BUN 62H, Creatinine 3.11 H, Est GFR (MDRD) Non-Af 19 L, BUN/Creatinine Ratio 19.9, Glucose 127 H, Calcium8.8, Magnesium 2.3 H Rhythm: EKG: ECHO: Stress Test: Cardiac Cath: PCI: CT Surgery: Holter monitor: EPS: PPM: CXR: Chest CT Scan: Physical Exam Narrative Comfortable. No apparent distress. Heart sounds 1 and 2 noted. Tachycardic. Chest clear to auscultation bilaterally. Alert oriented x 3. Trace bilateral ankle edema. Assessment & Plan Assessment/Plan (1) Atrial flutter with rapid ventricular response: PLAN: Sick sinus syndrome. Bradycardic with to 240 mg of diltiazem and 25 twicedaily of metoprolol.DC metoprolol. Decrease diltiazem to 30 mg every 6 hours. (2) Acute on chronic diastolic congestive heart failure: PLAN: Continue furosemide. Changed to 40 mg daily. Monitor electrolytes. (3) Coronary artery disease: PLAN: History of CABG. Continue beta-blockers. Statins. On apixaban. Recommend pharmacological stress test as outpatient. (4) Mitral valve regurgitation: PLAN: Furosemide. ACEI. (5) Tricuspid valve regurgitation: PLAN: Furosemide. (6) Hypertension: QUALIFIERS: Hypertension type: essential hypertension Qualified Code(s): I10 - Essential (primary) hypertension PLAN: Blood pressure borderline. DC metoprolol. Furosemide being held for acute renal insufficiency. DC lisinopril. (7) Diabetes: PLAN: As per internal medicine. (8) Peripheral arterial disease: PLAN: Follows with vascular surgery. On clopidogrel. 03/08/25 0851 Cosigner Signature (if applicable): CC: ~ Signed [facility]07-19-2025 Progress note Author Deric Lantigua [facility] Note Date/Time March 07, 2025 1:51 pm [facility] Medical Records Department [address] [place] [id number] Progress Note - Hospitalist 03/07/25 1342 MR#: [id number] Acct: [id number] Name: PEDRO HILLMAN Rep #:[id number] : 1945 80 From: Deric Smith PCP: Dr. Tonio Fajardo, DO Status:ADM IN Location: [place] [address] Reason for Visit Chief Complaint: SOB. Objective Data Objective Data Vital Signs: Vital Signs Temp Pulse Resp BP Pulse Ox O2 Del Method O2 Flow Rate 98.3 F 76 18 129/34 H 97 Nasal Cannula 3 03/07/25 13:00 03/07/25 13:36 03/07/25 13:36 03/07/25 13:00 03/07/25 13:00 03/07/25 13:00 03/07/25 13:00 Oxygen Flow Rate (L/min) 3 Oxygen Delivery Method Nasal Cannula Weight: 163 lb 2.273 oz Body Mass Index (BMI) 26.3 Intake & Output: Intake and Output for Last 24 Hours 03/05/25 03/06/25 03/07/25 23:59 23:59 23:59 Intake Total 908.00 / 908.00 430 / 430 0 / 0 Output Total 3451 / 3451 2450 / 2450 300 / 300 Balance -2543.00 / -2543.00 -2020 / -2020 -300 / -300 Medical Nutrition Assessment Dietitian: Malnutrition Criteria Met Start: 03/05/25 14:17 Freq: Status: Active Protocol: Document 03/05/25 14:17 SB (Rec: 03/05/25 14:17 SB [id number]) Nutrition Malnutrition Evidence of Yes Malnutrition Exists Malnutrition (severe Acute Illness/Injury ): Evidenced By Suboptimal Energy Intake (Severe),Weight Loss (Severe) Clinical Problem Acute Disease or Injury Related Malnutrition Etiology severe malnutrition in the context of lung cancer related to inadequate oral/energy intake Signs/Symptoms as evidenced by PO meeting <50% of estimated nutrition needs x 1 month and 10% unintentional weight loss x2 months Status Active Problem Recommendation Dietitian Liberalize to regular, no added salt diet due to signs Recommendations/ and symptoms of malnutrition. Changes Will order 120ml glucerna shake TID with meals. Will monitor weight trends. Lab / Micro Data 03/05/25 06:08 03/07/25 05:20 Labs: Laboratory Results - last 24 hr 03/06/25 16:55: POC Glucose 117 H 03/06/25 22:29: POC Glucose 146 H 03/07/25 05:20: Sodium 134, Potassium 4.8, Chloride 97 L, Carbon Dioxide 26.3, Anion Gap 10, BUN 56 H, Creatinine 3.09 H, Estim Creat Clear Calc 17.21 L, Est GFR (MDRD) Non-Af 20 L, BUN/Creatinine Ratio 18.2, Glucose 126 H, Calcium 8.7 03/07/25 06:13: POC Glucose 127 H 03/07/25 11:59: POC Glucose 184 H Micro: Microbiology 03/06/25 18:40 Urine, Clean Catch Urine Culture - Preliminary Culture exhibits no growth. Rhythm Strip Rhythm Strip: Atrial flutter Rate: 108 Ectopy: None Physical Exam Narrative Seen and examined Patient shortness of breath is improved. Patient was in bradycardia, heart ratedropped to 40s but improved to 62.9. Blood pressure was also low 108/34 but improved to 129 systolic. laboratory monitor reviewed. Still in A-fib/flutter. Shortness of breath is better. Did not feel flutter waves/palpitation. No syncope. Denies chest pain. Had CABG several years ago and coronary stent prior to that. Denies burning with urination. Had bowel movement Physical exam: General: Alert, Oriented x3, Cooperative HEENT: Atraumatic, PERRLA, EOMI, Normocephalic. Oral: No Gingival or Mucosal Lesions/ Ulcerations Neck: Supple, No JVD, Negative Carotid Bruits Chest wall/Lungs: Air entry diminished in bilateral lung bases. No crepitation/rhonchi Cardiovascular: Irregular rhythm, Normal S1,S2, systolic murmur. CABG scar Abdomen: Bowel Sounds Present, Soft, Non Tender, Non-Distended : No dysuria. No renal angle tenderness. No suprapubic tenderness. Extremities: Minimal to mild pedal edema, Capillary Refill Less than 3 Seconds Skin: No rashes, No breakdown Musculoskeletal: No Tenderness to Palpation of Joints or Extremities Neurological: Cranial nerves II-XII grossly intact, DTR 2+/4. No acute focal neurological deficit. Psych/Mental Status: Normal Affect, Appropriate. Assessment & Plan Assessment/Plan (1) CHF exacerbation: QUALIFIERS: Heart failure type: unspecified Qualified Code(s): I50.9 - Heart failure, unspecified (2) Atrial flutter with rapid ventricular response: (3) Chronic anticoagulation: (4) Elevated troponin: (5) Hyperkalemia: (6) Pleural effusion on right: (7) Acute cystitis with hematuria: (8) Atherosclerosis of coronary artery of [place] heart without angina pectoris: QUALIFIERS: Coronary Disease-Associated Artery/Lesion type: nativeartery Qualified Code(s): I25.10 - Atherosclerotic heart disease of [place] coronary artery without angina pectoris (9) Overweight (BMI 25.0-29.9): PLAN: Plan 80-year-old gentleman on 4 L of O2 with history of lung cancer/COPD was admittedwith shortness of breath for 1 day. Noted hypoxia 78 to 80% on room air on EMS. No leg swelling. No fever chest pain. Denies any change in cough. EMS vitalsshows tachycardia heart rate 120/min, glucose 174, pulse ox 83%, end-tidal 30. 1. Acute exacerbation of chronic HFpEF: Patient admitted in PCU. elevated NT pro-BNP II of 3,316 pg/mL with a corresponding CXR that revealed cardiomegaly and CHF with small right pleural effusion and bibasilar atelectasis worse at theRight lung base Maintain metoprolol and lisinopril as before. 03/05: Heart failure core measures including intake and output, fluid restrictionless than 1500 mL, daily weight monitoring, kidney and electrolytes monitoring. On furosemide 40 mg twice daily. Serial troponins 44, 45 and 42 therefore no significant delta change. ACS ruled out. [employer] Professional is consulted. Repeat proBNP is elevated but it does not reflect treatment response as it should not be ordered for that. Clinically patient is feeling better with improvement in shortness of breath. 2D echo 03/05 reported EF 55%, PASP 42 mmHg with moderate TR, moderate IA and mild PI. 03/06: Furosemide changed to 40 g daily. Patient is over diuresed. 03/07 hold Lasix. 2. EKG evidence of Atrial Flutter; with Rapid Ventricular Response of ~117 bpm even after being treated with IV Cardizem bolus probably precipitating CHF exacerbation: Patient already on apixaban patient had digoxin. TSH 3.7 normal. Twelve-lead EKG individually reviewed and shows atrial flutter 2 is to 1 conduction. Later on irregular variable conduction on bus driver/monitor 03/06: Discussed with the calliope player. Metoprolol increased to 25 mg twice daily, Cardizem 60 mg Q6 hourly. If heart rate controlled, will switch to long-acting Cardizem CD. 03/07: Bradycardia heart rate dropped to 40s. Hold metoprolol in the morning andresume from night. Heart rate improved from 40s to 62, 76/m. Resume metoprololfrom tonight. Cardizem regular changed to Cardizem CD 120 mg twice daily with holding parameters. Discussed with the patient's daughter, she was not comfortable taking home. Will try to establish heart rate. 3. DARIUSZ on CKD; stage IIIb with hyperkalemia, present on admission:-serum creatinine of 1.86 mg/dL, BUN of 37 mg/dL and EGFR of 36 mL/min present on admission. Treated with IV furosemide. Repeat potassium 5.0 slightly better than 5.2. His baseline creatinine runs around 2.21-2.36. Admitted with 1.87, today 1.86. 03/06: Furosemide changed to oral once daily. 03/07 creatinine jumped to 2.23, 3.09. BUN 56. Hold furosemide for next few days. Monitor kidney function tomorrow a.m. 5. UA positive for Acute Cystitis; with microscopic hematuria:- Start IV ceftriaxone empirically. Urine culture ordered 6. CAD; s/p CABG x 3 (2012) - 7. Essential hypertension; on lisinopril and metoprolol BID - Resume home regimen plus give as needed IV hydralazine for systolic blood pressure greater than 160 mmHg. 8. Hyperlipidemia; on pravastatin - Continue statin and check lipid profile. 9. Chronic hypoxic respiratory failure on 4 L continuously: 10. 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 On sitagliptin. Accu-Chek before meals and at bedtime with Humalog sliding scale coverage and hypoglycemia protocol. 11. Peripheral artery disease with history of left lower extremity ulcer statuspost aortofemoral bypass graft in 2009 and chronic venous insufficiency. Continue clopidogrel 12. Overweight; with BMI of 26 this admission - Weight loss will be recommended. 13. Chronic anemia - Stable with hemoglobin of 10.1 g/dL and MCV of 89.3 fL present on admission. Hemoglobin 9.3. Does not show significant drop or meet criteria for acute anemia 14. Chronic degenerative arthritis, give acetaminophen prn pain or fever DVT prophylaxis - Patient already on apixaban for #2 which will be continued. Laboratory Results Microbiology Past 72 Hours 03/06/25 18:40 Urine, Clean Catch Urine Culture - Preliminary Culture exhibits no growth. Laboratory Results 03/06/25 16:55: POC Glucose 117 H 03/06/25 22:29: POC Glucose 146 H 03/07/25 05:20: Sodium 134, Potassium 4.8, Chloride 97 L, Carbon Dioxide 26.3, Anion Gap 10, BUN 56 H, Creatinine 3.09 H, Estim Creat Clear Calc 17.21 L, Est GFR (MDRD) Non-Af 20 L, BUN/Creatinine Ratio 18.2, Glucose 126 H, Calcium 8.7 03/07/25 06:13: POC Glucose 127 H 03/07/25 11:59: POC Glucose 184 H Clinical Impression(s) from Imaging Studies Chest X-Ray 03/04/25 14:59 IMPRESSION: Cardiomegaly and CHF with small right pleural effusion and bibasilar atelectasisworse at the right lung base. Reading Location: [facility] Echocardiogram 03/04/25 20:08 Interpretation Summary Moderate concentric left ventricular hypertrophy. The LV ejection fraction is 55 %. Stage 1 diastolic dysfunction. The left atrium is severely enlarged. Severe mitral valve annular calcification. Moderate posteriorly directed mitral valve regurgitation. Moderate tricuspid valve regurgitation. Estimated pulmonary artery systolic pressure 42 mmHg. Mild (1+) pulmonic valve insufficiency. The study was technically difficult. Ordering Physician: Nicola Lindsey Referring Physician: SCOTTY ELIZALDE Performed By: Haley Stevens and Student Chest X-Ray 03/05/25 04:30 IMPRESSION: Small interval improvement in right lung base aeration. Reading Location: [place] [address] Charges/Coding Visit Charges Inpatient E&M: 09686 Subs Hosp L2 03/07/25 1351 <Electronically signed by Deric Lantigua MD> Cosigner Signature (if applicable): CC: ~ Signed [facility] Work Phone: 1(826) 398-525707-19-2025 Progress note [facility] Medical Records Department [address] [place] [address] Progress Note - Hospitalist 03/07/25 1342 MR#: [id number] Acct: [id number] Name: KADY,PEDRO Nora Rep #:[id number] : 1945 80 From: Deric Smith PCP: Dr. Tonio Fajardo, DO Status:ADM IN Location: [place] [address] Reason for Visit Chief Complaint: SOB. Objective Data Objective Data Vital Signs: Vital Signs Temp Pulse Resp BP Pulse Ox O2 Del Method O2 Flow Rate 98.3 F 76 18 129/34 H 97 Nasal Cannula 3 03/07/25 13:00 03/07/25 13:36 03/07/25 13:36 03/07/25 13:00 03/07/25 13:00 03/07/25 13:00 03/07/25 13:00 Oxygen Flow Rate (L/min) 3 Oxygen Delivery Method Nasal Cannula Weight: 163 lb 2.273 oz Body Mass Index (BMI) 26.3 Intake & Output: Intake and Output for Last 24 Hours 03/05/25 03/06/25 03/07/25 23:59 23:59 23:59 Intake Total 908.00 / 908.00 430 / 430 0 / 0 Output Total 3451 / 3451 2450 / 2450 300 / 300 Balance -2543.00 / -2543.00 -2020 / -2020 -300 / -300 Medical Nutrition Assessment Dietitian: Malnutrition Criteria Met Start: 03/05/25 14:17 Freq: Status: Active Protocol: Document 03/05/25 14:17 SB (Rec: 03/05/25 14:17 SB [id number]) Nutrition Malnutrition Evidence of Yes Malnutrition Exists Malnutrition (severe Acute Illness/Injury ): Evidenced By Suboptimal Energy Intake (Severe),Weight Loss (Severe) Clinical Problem Acute Disease or Injury Related Malnutrition Etiology severe malnutrition in the context of lung cancer related to inadequate oral/energy intake Signs/Symptoms as evidenced by PO meeting <50% of estimated nutrition needs x 1 month and 10% unintentional weight loss x2 months Status Active Problem Recommendation Dietitian Liberalize to regular, no added salt diet due to signs Recommendations/ and symptoms of malnutrition. Changes Will order 120ml glucerna shake TID with meals. Will monitor weight trends. Lab / Micro Data 03/05/25 06:08 03/07/25 05:20 Labs: Laboratory Results - last 24 hr 03/06/25 16:55: POC Glucose 117 H 03/06/25 22:29: POC Glucose 146 H 03/07/25 05:20: Sodium 134, Potassium 4.8, Chloride 97 L, Carbon Dioxide 26.3, Anion Gap 10, BUN 56H, Creatinine 3.09 H, Estim Creat Clear Calc 17.21 L, Est GFR (MDRD) Non-Af 20 L, BUN/Creatinine Ratio 18.2, Glucose 126 H, Calcium 8.7 03/07/25 06:13: POC Glucose 127 H 03/07/25 11:59: POC Glucose 184 H Micro: Microbiology 03/06/25 18:40 Urine, Clean Catch Urine Culture - Preliminary Culture exhibits no growth. Rhythm Strip Rhythm Strip: Atrial flutter Rate: 108 Ectopy: None Physical Exam Narrative Seen and examined Patient shortness of breath is improved. Patient was in bradycardia, heart ratedropped to 40s but improved to 62.9. Blood pressure was also low 108/34 but improved to 129 systolic. laboratory monitor reviewed. Still in A-fib/flutter. Shortness of breath is better. Did not feel flutter waves/palpitation. No syncope. Denies chest pain. Had CABG several years ago and coronary stent prior to that. Denies burning with urination. Had bowel movement Physical exam: General: Alert, Oriented x3, Cooperative HEENT: Atraumatic, PERRLA, EOMI, Normocephalic. Oral: No Gingival or Mucosal Lesions/ Ulcerations Neck: Supple, No JVD, Negative Carotid Bruits Chest wall/Lungs: Air entry diminished in bilateral lung bases. No crepitation/rhonchi Cardiovascular: Irregular rhythm, Normal S1,S2, systolic murmur. CABG scar Abdomen: Bowel Sounds Present, Soft, Non Tender, Non-Distended : No dysuria. No renal angle tenderness. No suprapubic tenderness. Extremities: Minimal to mild pedal edema, Capillary Refill Less than 3 Seconds Skin: No rashes, No breakdown Musculoskeletal: No Tenderness to Palpation of Joints or Extremities Neurological: Cranial nerves II-XII grossly intact, DTR 2+/4. No acute focal neurological deficit. Psych/Mental Status: Normal Affect, Appropriate. Assessment & Plan Assessment/Plan (1) CHF exacerbation: QUALIFIERS: Heart failure type: unspecified Qualified Code(s): I50.9 - Heart failure, unspecified (2) Atrial flutter with rapid ventricular response: (3) Chronic anticoagulation: (4) Elevated troponin: (5) Hyperkalemia: (6) Pleural effusion on right: (7) Acute cystitis with hematuria: (8) Atherosclerosis of coronary artery of [place] heart without angina pectoris: QUALIFIERS: Coronary Disease-Associated Artery/Lesion type: nativeartery Qualified Code(s): I25.10 - Atherosclerotic heart disease of [place] coronary artery without angina pectoris (9) Overweight (BMI 25.0-29.9): PLAN: Plan 80-year-old gentleman on 4 L of O2 with history of lung cancer/COPD was admittedwith shortness of breath for 1 day. Noted hypoxia 78 to 80% on room air on EMS. No leg swelling. No fever chest pain. Denies any change in cough. EMS vitalsshows tachycardia heart rate 120/min, glucose 174, pulse ox 83%, end-tidal 30. 1. Acute exacerbation of chronic HFpEF: Patient admitted in PCU. elevated NT pro-BNP II of 3,316 pg/mL with a corresponding CXR that revealed cardiomegaly and CHF with small right pleural effusion and bibasilar atelectasis worse at [facility] lung base Maintain metoprolol and lisinopril as before. 03/05: Heart failure core measures including intake and output, fluid restrictionless than 1500 mL, daily weight monitoring, kidney and electrolytes monitoring. On furosemide 40 mg twice daily. Serialtroponins 44, 45 and 42 therefore no significant delta change. ACS ruled out. [employer] Professional is consulted. Repeat proBNP is elevated but it does not reflect treatment response as it should not be ordered for that. Clinically patient is feeling better with improvement in shortness of breath. 2D echo 03/05 reported EF 55%, PASP 42 mmHg with moderate TR, moderate IA and mild PI. 03/06: Furosemide changed to 40 g daily. Patient is over diuresed. 03/07 hold Lasix. 2. EKG evidence of Atrial Flutter; with Rapid Ventricular Response of ~117 bpm even after being treated with IV Cardizem bolus probably precipitating CHF exacerbation: Patient already on apixaban patient had digoxin. TSH 3.7 normal. Twelve-lead EKG individually reviewed and shows atrial flutter 2 is to 1 conduction. Later on irregular variable conduction on bus driver/monitor 03/06: Discussed with the calliope player. Metoprolol increased to 25 mg twice daily, Cardizem 60 mg [id number]. If heart rate controlled, will switch to long- acting Cardizem CD. 03/07: Bradycardia heart rate dropped to 40s. Hold metoprolol in the morning andresume from night. Heart rate improved from 40s to 62, 76/m. Resume metoprololfrom tonight. Cardizem regular changed to Cardizem CD 120 mg twice daily with holding parameters. Discussed with the patient's daughter, she was not comfortable taking home. Will try to establish heart rate. 3. DARIUSZ on CKD; stage IIIb with hyperkalemia, present on admission:-serum creatinine of 1.86 mg/dL, BUN of 37 mg/dL and EGFR of 36 mL/min present on admission. Treated with IV furosemide. Repeat potassium 5.0 slightly better than 5.2. His baseline creatinine runs around 2.21-2.36. Admitted with 1.87, today 1.86. 03/06: Furosemide changed to oral once daily. 03/07 creatinine jumped to 2.23, 3.09. BUN 56. Hold furosemide for next few days. Monitor kidney function tomorrow a.m. 5. UA positive for Acute Cystitis; with microscopic hematuria:- Start IV ceftriaxone empirically. Urine culture ordered 6. CAD; s/p CABG x 3 (2012) - 7. Essential hypertension; on lisinopril and metoprolol BID - Resume home regimen plus give as needed IV hydralazine for systolic blood pressure greater than 160 mmHg. 8. Hyperlipidemia; on pravastatin - Continue statin and check lipid profile. 9. Chronic hypoxic respiratory failure on 4 L continuously: 10. 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 On sitagliptin. Accu-Chek before meals and at bedtime with Humalog sliding scale coverage and hypoglycemia protocol. 11. Peripheral artery disease with history of left lower extremity ulcer statuspost aortofemoral bypass graft in 2009 and chronic venous insufficiency. Continue clopidogrel 12. Overweight; with BMI of 26 this admission - Weight loss will be recommended. 13. Chronic anemia - Stable with hemoglobin of 10.1 g/dL and MCV of 89.3 fL present on admission. Hemoglobin 9.3. Does not show significant drop or meet criteria for acute anemia 14. Chronic degenerative arthritis, give acetaminophen prn pain or fever DVT prophylaxis - Patient already on apixaban for #2 which will be continued. Laboratory Results Microbiology Past 72 Hours 07/18/25 18:40 Urine, Clean Catch Urine Culture - Preliminary Culture exhibits no growth. Laboratory Results 03/06/25 16:55: POC Glucose 117 H 03/06/25 22:29: POC Glucose 146 H 03/07/25 05:20: Sodium 134, Potassium 4.8, Chloride 97 L, Carbon Dioxide 26.3, Anion Gap 10, BUN 56H, Creatinine 3.09 H, Estim Creat Clear Calc 17.21 L, Est GFR (MDRD) Non-Af 20 L, BUN/Creatinine Ratio 18.2, Glucose 126 H, Calcium 8.7 03/07/25 06:13: POC Glucose 127 H 03/07/25 11:59: POC Glucose 184 H Clinical Impression(s) from Imaging Studies Chest X-Ray 03/04/25 14:59 IMPRESSION: Cardiomegaly and CHF with small right pleural effusion and bibasilar atelectasisworse at the right lung base. Reading Location: [facility]1 Echocardiogram 03/04/25 20:08 Interpretation Summary Moderate concentric left ventricular hypertrophy. The LV ejection fraction is 55 %. Stage 1 diastolic dysfunction. The left atrium is severely enlarged. Severe mitral valve annular calcification. Moderate posteriorly directed mitral valve regurgitation. Moderate tricuspid valve regurgitation. Estimated pulmonary artery systolic pressure 42 mmHg. Mild (1+) pulmonic valve insufficiency. The study was technically difficult. Ordering Physician: Nicola Lindsey Referring Physician: SCOTTY ELIZALDE Performed By: Haley Stevens and Student Chest X-Ray 03/05/25 04:30 IMPRESSION: Small interval improvement in right lung base aeration. Reading Location: [facility]2 Charges/Coding Visit Charges Inpatient E&M: 66677 Subs Hosp L2 03/07/25 1351 Cosigner Signature (if applicable): CC: ~ Signed [facility]07-18-2025 Progress note Author Deric Lantigua [facility] Note Date/Time March 06, 2025 3:46 pm [facility] Medical Records Department [address] [place] [address] Progress Note - Hospitalist 03/06/25 1540 MR#: [id number] Acct: [id number] Name: PEDRO HILLMAN Rep #:[id number] : 1945 80 From: Deric Smith PCP: Dr. Tonio Fajardo, DO Status:ADM IN Location: [address] 1 Reason for Visit Chief Complaint: SOB. Objective Data Objective Data Vital Signs: Vital Signs Temp Pulse Resp BP Pulse Ox O2 Del Method O2 Flow Rate 98.0 F 69 19 H 113/40 L 84 Nasal Cannula 3 03/06/25 06:25 03/06/25 11:31 03/06/25 07:41 03/06/25 06:25 03/06/25 13:09 03/06/25 09:55 03/06/25 13:09 Oxygen Flow Rate (L/min) 3 Oxygen Delivery Method Nasal Cannula Weight: 162 lb 11.218 oz Body Mass Index (BMI) 26.2 Intake & Output: Intake and Output for Last 24 Hours 03/04/25 03/05/25 03/06/25 23:59 23:59 23:59 Intake Total 50 / 290 908.00 / 908.00 0 / 0 Output Total 3451 / 3451 1550 / 1550 Balance 50 / 40 -2543.00 / -2543.00 -1550 / -1550 Medical Nutrition Assessment Dietitian: Malnutrition Criteria Met Start: 03/05/25 14:17 Freq: Status: Active Protocol: Document 03/05/25 14:17 SB (Rec: 03/05/25 14:17 SB [id number]) Nutrition Malnutrition Evidence of Yes Malnutrition Exists Malnutrition (severe Acute Illness/Injury ): Evidenced By Suboptimal Energy Intake (Severe),Weight Loss (Severe) Clinical Problem Acute Disease or Injury Related Malnutrition Etiology severe malnutrition in the context of lung cancer related to inadequate oral/energy intake Signs/Symptoms as evidenced by PO meeting <50% of estimated nutrition needs x 1 month and 10% unintentional weight loss x2 months Status Active Problem Recommendation Dietitian Liberalize to regular, no added salt diet due to signs Recommendations/ and symptoms of malnutrition. Changes Will order 120ml glucerna shake TID with meals. Will monitor weight trends. Lab / Micro Data 03/05/25 06:08 03/06/25 06:02 Labs: Laboratory Results - last 24 hr 03/05/25 16:35: POC Glucose 111 H 03/05/25 21:06: POC Glucose 140 H 03/06/25 06:02: Sodium 138, Potassium 4.7, Chloride 99, Carbon Dioxide 31.2, Anion Gap 8, BUN 40 H, Creatinine 2.23 H, Estim Creat Clear Calc 23.84 L, Est GFR (MDRD) Non-Af 29 L, BUN/Creatinine Ratio 17.8, Glucose 118 H, Calcium 9.1, Phosphorus 3.9 03/06/25 06:32: POC Glucose 109 H 03/06/25 11:36: POC Glucose 229 H Rhythm Strip Rhythm Strip: Atrial flutter Rate: 108 Ectopy: None Physical Exam Narrative Seen and examined Patient shortness of breath is improved. Still in A-fib/flutter with heart [id number]. Shortness of breath is better. Did not feel flutter waves/palpitation. No syncope. Denies chest pain. Had CABG several years ago and coronary stent prior to that. Denies burning with urination. Had bowel movement Physical exam: General: Alert, Oriented x3, Cooperative HEENT: Atraumatic, PERRLA, EOMI, Normocephalic. Oral: No Gingival or Mucosal Lesions/ Ulcerations Neck: Supple, No JVD, Negative Carotid Bruits Chest wall/Lungs: Air entry diminished in bilateral lung bases. No crepitation/rhonchi Cardiovascular: Irregular rhythm, Normal S1,S2, systolic murmur. CABG scar Abdomen: Bowel Sounds Present, Soft, Non Tender, Non-Distended : No dysuria. No renal angle tenderness. No suprapubic tenderness. Extremities: Minimal to mild pedal edema, Capillary Refill Less than 3 Seconds Skin: No rashes, No breakdown Musculoskeletal: No Tenderness to Palpation of Joints or Extremities Neurological: Cranial nerves II-XII grossly intact, DTR 2+/4. No acute focal neurological deficit. Psych/Mental Status: Normal Affect, Appropriate. Assessment & Plan Assessment/Plan (1) CHF exacerbation: QUALIFIERS: Heart failure type: unspecified Qualified Code(s): I50.9 - Heart failure, unspecified (2) Atrial flutter with rapid ventricular response: (3) Chronic anticoagulation: (4) Elevated troponin: (5) Hyperkalemia: (6) Pleural effusion on right: (7) Acute cystitis with hematuria: (8) Atherosclerosis of coronary artery of [place] tribe heart without angina pectoris: QUALIFIERS: Coronary Disease-Associated Artery/Lesion type: nativeartery Qualified Code(s): I25.10 - Atherosclerotic heart disease of [place] tribe coronary artery without angina pectoris (9) Overweight (BMI 25.0-29.9): PLAN: Plan 80-year-old gentleman on 4 L of O2 with history of lung cancer/COPD was admittedwith shortness of breath for 1 day. Noted hypoxia 78 to 80% on room air on EMS. No leg swelling. No fever chest pain. Denies any change in cough. EMS vitalsshows tachycardia heart rate 120/min, glucose 174, pulse ox 83%, end-tidal 30. 1. Acute exacerbation of chronic HFpEF: Patient admitted in PCU. elevated NT pro-BNP II of 3,316 pg/mL with a corresponding CXR that revealed cardiomegaly and CHF with small right pleural effusion and bibasilar atelectasis worse at theRight lung base Maintain metoprolol and lisinopril as before. 03/05: Heart failure core measures including intake and output, fluid restrictionless than 1500 mL, daily weight monitoring, kidney and electrolytes monitoring. On furosemide 40 mg twice daily. Serial troponins 44, 45 and 42 therefore no significant delta change. ACS ruled out. [employer] Professional is consulted. Repeat proBNP is elevated but it does not reflect treatment response as it should not be ordered for that. Clinically patient is feeling better with improvement in shortness of breath. 2D echo 03/05 reported EF 55%, PASP 42 mmHg with moderate TR, moderate IA and mild PI. 03/06: Furosemide changed to 40 g daily. Patient is over diuresed. 2. EKG evidence of Atrial Flutter; with Rapid Ventricular Response of ~117 bpm even after being treated with IV Cardizem bolus probably precipitating CHF exacerbation: Patient already on apixaban patient had digoxin. TSH 3.7 normal. Twelve-lead EKG individually reviewed and shows atrial flutter 2 is to 1 conduction. Later on irregular variable conduction on bus driver/monitor 03/06: Discussed with the calliope player. Metoprolol increased to 25 mg twice daily, Cardizem 60 mg Q6 hourly. If heart rate controlled, will switch to long-acting Cardizem CD. 3. CKD; stage IIIb with hyperkalemia, present on admission:-serum creatinine of1.86 mg/dL, BUN of 37 mg/dL and EGFR of 36 mL/min present on admission. Treatedwith IV furosemide. Repeat potassium 5.0 slightly better than 5.2. His baseline creatinine runs around 2.21-2.36. Admitted with 1.87, today 1.86. 5. UA positive for Acute Cystitis; with microscopic hematuria:- Start IV ceftriaxone empirically. Urine culture ordered 6. CAD; s/p CABG x 3 (2012) - 7. Essential hypertension; on lisinopril and metoprolol BID - Resume home regimen plus give as needed IV hydralazine for systolic blood pressure greater than 160 mmHg. 8. Hyperlipidemia; on pravastatin - Continue statin and check lipid profile. 9. Chronic hypoxic respiratory failure on 4 L continuously: 10. 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 On sitagliptin. Accu-Chek before meals and at bedtime with Humalog sliding scale coverage and hypoglycemia protocol. 11. Peripheral artery disease with history of left lower extremity ulcer statuspost aortofemoral bypass graft in 2009 and chronic venous insufficiency. Continue clopidogrel 12. Overweight; with BMI of 26 this admission - Weight loss will be recommended. 13. Chronic anemia - Stable with hemoglobin of 10.1 g/dL and MCV of 89.3 fL present on admission. Hemoglobin 9.3. Does not show significant drop or meet criteria for acute anemia 14. Chronic degenerative arthritis, give acetaminophen prn pain or fever DVT prophylaxis - Patient already on apixaban for #2 which will be continued. Laboratory Results Laboratory Results 03/05/25 16:35: POC Glucose 111 H 03/05/25 21:06: POC Glucose 140 H 03/06/25 06:02: Sodium 138, Potassium 4.7, Chloride 99, Carbon Dioxide 31.2, Anion Gap 8, BUN 40 H, Creatinine 2.23 H, Estim Creat Clear Calc 23.84 L, Est GFR (MDRD) Non-Af 29 L, BUN/Creatinine Ratio 17.8, Glucose 118 H, Calcium 9.1, Phosphorus 3.9 03/06/25 06:32: POC Glucose 109 H 03/06/25 11:36: POC Glucose 229 H Clinical Impression(s) from Imaging Studies Chest X-Ray 03/04/25 14:59 IMPRESSION: Cardiomegaly and CHF with small right pleural effusion and bibasilar atelectasisworse at the right lung base. [facility] Echocardiogram 03/04/25 20:08 Interpretation Summary Moderate concentric left ventricular hypertrophy. The LV ejection fraction is 55 %. Stage 1 diastolic dysfunction. The left atrium is severely enlarged. Severe mitral valve annular calcification. Moderate posteriorly directed mitral valve regurgitation. Moderate tricuspid valve regurgitation. Estimated pulmonary artery systolic pressure 42 mmHg. Mild (1+) pulmonic valve insufficiency. The study was technically difficult. Ordering Physician: Nicola Lindsey Referring Physician: SCOTTY ELIZALDE Performed By: Haley Stevens and Student Chest X-Ray 03/05/25 04:30 IMPRESSION: Small interval improvement in right lung base aeration. Reading Location: [place] [address] Charges/Coding Visit Charges Inpatient E&M: 16536 Subs Hosp L2 03/06/25 1544 <Electronically signed by Deric Lantigua MD> Cosigner Signature (if applicable): CC: ~ Signed [facility] Work Phone: [phone] 850-692007-18-2025 Progress note [facility] Medical Records Department [address] [place] [address] Progress Note - Hospitalist 03/06/25 1540 MR#: [id number] Acct: [id number] Name: PEDRO HILLMAN Rep #:[id number] : 1945 80 From: Deric Smith PCP: Dr. Tonio Fajardo, DO Status:ADM IN Location: [place] [address] Reason for Visit Chief Complaint: SOB. Objective Data Objective Data Vital Signs: Vital Signs Temp Pulse Resp BP Pulse Ox O2 Del Method O2 Flow Rate 98.0 F 69 19 H 113/40 L 84 Nasal Cannula 3 03/06/25 06:25 03/06/25 11:31 03/06/25 07:41 03/06/25 06:25 03/06/25 13:09 03/06/25 09:55 03/06/25 13:09 Oxygen Flow Rate (L/min) 3 Oxygen Delivery Method Nasal Cannula Weight: 162 lb 11.218 oz Body Mass Index (BMI) 26.2 Intake & Output: Intake and Output for Last 24 Hours 03/04/25 03/05/25 03/06/25 23:59 23:59 23:59 Intake Total 50 / 290 908.00 / 908.00 0 / 0 Output Total 3451 / 3451 1550 / 1550 Balance 50 / 40 -2543.00 / -2543.00 -1550 / -1550 Medical Nutrition Assessment Dietitian: Malnutrition Criteria Met Start: 03/05/25 14:17 Freq: Status: Active Protocol: Document 03/05/25 14:17 SB (Rec: 03/05/25 14:17 SB [id number]) Nutrition Malnutrition Evidence of Yes Malnutrition Exists Malnutrition (severe Acute Illness/Injury ): Evidenced By Suboptimal Energy Intake (Severe),Weight Loss (Severe) Clinical Problem Acute Disease or Injury Related Malnutrition Etiology severe malnutrition in the context of lung cancer related to inadequate oral/energy intake Signs/Symptoms as evidenced by PO meeting <50% of estimated nutrition needs x 1 month and 10% unintentional weight loss x2 months Status Active Problem Recommendation Dietitian Liberalize to regular, no added salt diet due to signs Recommendations/ and symptoms of malnutrition. Changes Will order 120ml glucerna shake TID with meals. Will monitor weight trends. Lab / Micro Data 03/05/25 06:08 03/06/25 06:02 Labs: Laboratory Results - last 24 hr 03/05/25 16:35: POC Glucose 111 H 03/05/25 21:06: POC Glucose 140 H 03/06/25 06:02: Sodium 138, Potassium 4.7, Chloride 99, Carbon Dioxide 31.2, Anion Gap 8, BUN 40 H,Creatinine 2.23 H, Estim Creat Clear Calc 23.84 L, Est GFR (MDRD) Non-Af 29 L, BUN/Creatinine Ratio17.8, Glucose 118 H, Calcium 9.1, Phosphorus 3.9 03/06/25 06:32: POC Glucose 109 H 03/06/25 11:36: POC Glucose 229 H Rhythm Strip Rhythm Strip: Atrial flutter Rate: 108 Ectopy: None Physical Exam Narrative Seen and examined Patient shortness of breath is improved. Still in A-fib/flutter with heart [id number]. Shortness of breath is better. Did not feel flutter waves/palpitation. No syncope. Denies chest pain. Had CABG several years ago and coronary stent prior to that. Denies burning with urination. Had bowel movement Physical exam: General: Alert, Oriented x3, Cooperative HEENT: Atraumatic, PERRLA, EOMI, Normocephalic. Oral: No Gingival or Mucosal Lesions/ Ulcerations Neck: Supple, No JVD, Negative Carotid Bruits Chest wall/Lungs: Air entry diminished in bilateral lung bases. No crepitation/rhonchi Cardiovascular: Irregular rhythm, Normal S1,S2, systolic murmur. CABG scar Abdomen: Bowel Sounds Present, Soft, Non Tender, Non-Distended : No dysuria. No renal angle tenderness. No suprapubic tenderness. Extremities: Minimal to mild pedal edema, Capillary Refill Less than 3 Seconds Skin: No rashes, No breakdown Musculoskeletal: No Tenderness to Palpation of Joints or Extremities Neurological: Cranial nerves II-XII grossly intact, DTR 2+/4. No acute focal neurological deficit. Psych/Mental Status: Normal Affect, Appropriate. Assessment & Plan Assessment/Plan (1) CHF exacerbation: QUALIFIERS: Heart failure type: unspecified Qualified Code(s): I50.9 - Heart failure, unspecified (2) Atrial flutter with rapid ventricular response: (3) Chronic anticoagulation: (4) Elevated troponin: (5) Hyperkalemia: (6) Pleural effusion on right: (7) Acute cystitis with hematuria: (8) Atherosclerosis of coronary artery of [place] tribe heart without angina pectoris: QUALIFIERS: Coronary Disease-Associated Artery/Lesion type: nativeartery Qualified Code(s): I25.10 - Atherosclerotic heart disease of [place] coronary artery without angina pectoris (9) Overweight (BMI 25.0-29.9): PLAN: Plan 80-year-old gentleman on 4 L of O2 with history of lung cancer/COPD was admittedwith shortness of breath for 1 day. Noted hypoxia 78 to 80% on room air on EMS. No leg swelling. No fever chest pain. Denies any change in cough. EMS vitalsshows tachycardia heart rate 120/min, glucose 174, pulse ox 83%, end-tidal 30. 1. Acute exacerbation of chronic HFpEF: Patient admitted in PCU. elevated NT pro-BNP II of 3,316 pg/mL with a corresponding CXR that revealed cardiomegaly and CHF with small right pleural effusion and bibasilar atelectasis worse at theRight lung base Maintain metoprolol and lisinopril as before. 03/05: Heart failure core measures including intake and output, fluid restrictionless than 1500 mL, daily weight monitoring, kidney and electrolytes monitoring. On furosemide 40 mg twice daily. Serialtroponins 44, 45 and 42 therefore no significant delta change. ACS ruled out. [employer] Professional is consulted. Repeat proBNP is elevated but it does not reflect treatment response as it should not be ordered for that. Clinically patient is feeling better with improvement in shortness of breath. 2D echo 03/05 reported EF 55%, PASP 42 mmHg with moderate TR, moderate IA and mild PI. 03/06: Furosemide changed to 40 g daily. Patient is over diuresed. 2. EKG evidence of Atrial Flutter; with Rapid Ventricular Response of ~117 bpm even after being treated with IV Cardizem bolus probably precipitating CHF exacerbation: Patient already on apixaban patient had digoxin. TSH 3.7 normal. Twelve-lead EKG individually reviewed and shows atrial flutter 2 is to 1 conduction. Later on irregular variable conduction on bus driver/monitor 03/06: Discussed with the calliope player. Metoprolol increased to 25 mg twice daily, Cardizem 60 mg [id number]. If heart rate controlled, will switch to long- acting Cardizem CD. 3. CKD; stage IIIb with hyperkalemia, present on admission:-serum creatinine of1.86 mg/dL, BUN of 37 mg/dL and EGFR of 36 mL/min present on admission. Treatedwith IV furosemide. Repeat potassium 5.0 slightly better than 5.2. His baseline creatinine runs around 2.21-2.36. Admitted with 1.87, today 1.86. 5. UA positive for Acute Cystitis; with microscopic hematuria:- Start IV ceftriaxone empirically. Urine culture ordered 6. CAD; s/p CABG x 3 (2012) - 7. Essential hypertension; on lisinopril and metoprolol BID - Resume home regimen plus give as needed IV hydralazine for systolic blood pressure greater than 160 mmHg. 8. Hyperlipidemia; on pravastatin - Continue statin and check lipid profile. 9. Chronic hypoxic respiratory failure on 4 L continuously: 10. 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 On sitagliptin. Accu-Chek before meals and at bedtime with Humalog sliding scale coverage and hypoglycemia protocol. 11. Peripheral artery disease with history of left lower extremity ulcer statuspost aortofemoral bypass graft in 2009 and chronic venous insufficiency. Continue clopidogrel 12. Overweight; with BMI of 26 this admission - Weight loss will be recommended. 13. Chronic anemia - Stable with hemoglobin of 10.1 g/dL and MCV of 89.3 fL present on admission. Hemoglobin 9.3. Does not show significant drop or meet criteria for acute anemia 14. Chronic degenerative arthritis, give acetaminophen prn pain or fever DVT prophylaxis - Patient already on apixaban for #2 which will be continued. Laboratory Results Laboratory Results 03/05/25 16:35: POC Glucose 111 H 03/05/25 21:06: POC Glucose 140 H 03/06/25 06:02: Sodium 138, Potassium 4.7, Chloride 99, Carbon Dioxide 31.2, Anion Gap 8, BUN 40 H,Creatinine 2.23 H, Estim Creat Clear Calc 23.84 L, Est GFR (MDRD) Non-Af 29 L, BUN/Creatinine Ratio17.8, Glucose 118 H, Calcium 9.1, Phosphorus 3.9 03/06/25 06:32: POC Glucose 109 H 03/06/25 11:36: POC Glucose 229 H Clinical Impression(s) from Imaging Studies Chest X-Ray 03/04/25 14:59 IMPRESSION: Cardiomegaly and CHF with small right pleural effusion and bibasilar atelectasisworse at the right lung base. Reading Location: [facility] Echocardiogram 03/04/25 20:08 Interpretation Summary Moderate concentric left ventricular hypertrophy. The LV ejection fraction is 55 %. Stage 1 diastolic dysfunction. The left atrium is severely enlarged. Severe mitral valve annular calcification. Moderate posteriorly directed mitral valve regurgitation. Moderate tricuspid valve regurgitation. Estimated pulmonary artery systolic pressure 42 mmHg. Mild (1+) pulmonic valve insufficiency. The study was technically difficult. Ordering Physician: Nicola Lindsey Referring Physician: SCOTTY ELIZALDE Performed By: Haley Stevens and Student Chest X-Ray 03/05/25 04:30 IMPRESSION: Small interval improvement in right lung base aeration. Reading Location: [place] [address] Charges/Coding Visit Charges Inpatient E&M: 92054 [facility] Hosp L2 03/06/25 1546 Cosigner Signature (if applicable): CC: ~ Signed [facility]07-18-2025 Consult note Author Marjorie Green [facility] Note Date/Time March 06, 2025 9:33 am [facility] Medical Records Department [address] [place] [address] Consultation - Cardiology 03/06/25 0926 MR#: [id number] Acct: [id number] Name: PEDRO HILLMAN Nora Rep #:[id number] : 1945 80 From: Marjorie Green MD PCP: Dr. Tonio Fajardo, DO Status:ADM IN Location: [place] [address]- Assessment & Plan Assessment/Plan (1) Atrial flutter with rapid ventricular response: PLAN: Increase metoprolol to 25 mg twice daily. Start on diltiazem 60 mg p.o. every 6 hours. If he can tolerate that, then switch to longer acting in the morning. Continue apixaban for prevention of thromboembolic phenomenon. (2) Acute on chronic diastolic congestive heart failure: PLAN: Continue furosemide. Changed to 40 mg daily. Monitor electrolytes. (3) Coronary artery disease: PLAN: History of CABG. Continue beta-blockers. Statins. On apixaban. Recommend pharmacological stress test as outpatient. (4) Mitral valve regurgitation: PLAN: Furosemide. ACEI. (5) Tricuspid valve regurgitation: PLAN: Furosemide. (6) Hypertension: QUALIFIERS: Hypertension type: essential hypertension Qualified Code(s): I10 - Essential (primary) hypertension PLAN: Beta-blockers, diltiazem, furosemide, ACEI. (7) Diabetes: PLAN: As per internal medicine. (8) Peripheral arterial disease: PLAN: Follows with vascular surgery. On clopidogrel. HPI Consult Data Date of Consult: 03/06/25 HPI Narrative Reason for Consultation: Atrial flutter HPI Narrative: 80-year-old gentleman with past medical history significant for coronary artery disease status post CABG in 2012, HFpEF, atrial flutter, peripheral arterial disease and diabetes mellitus. Presented to the hospital with complaints of shortness of breath with exertion. According to him, the symptoms started abouta week prior to presentation. Denies any chest pains either at rest or with exertion. Denied orthopnea. No PND. No ankle edema. In the emergency room, he was noted to be in atrial flutter with rapid ventricular response. Also noted to have markedly elevated BNP levels. He was started on a diltiazem infusion for controlling his ventricular rate with his atrial flutter. Also started on IV diuretics for his congestive heart failure. Presently patient feels much better. According to him, his shortness of breath is much improved. [facility] Medical History (Updated 03/06/25 @ 09:[address] Marjorie Green MD) Other persistent atrial fibrillation New onset atrial flutter COVID Wears hearing aid in both ears Former smoker Coronary artery disease Peripheral vascular occlusive disease BPH (benign prostatic hyperplasia) Chronic kidney disease, stage 3 Atherosclerosis of coronary artery of [place] heart without angina pectoris Hyperlipidemia Lower extremity edema Venous insufficiency Malnutrition Delayed wound healing Osteomyelitis of ankle, left, acute Ulcer of left lower extremity with fat layer exposed Type 2 diabetes mellitus with diabetic polyneuropathy Anemia GERD (gastroesophageal reflux disease) Hypertension Home Medications ?Medication ?Instructions ?Recorded ?Last Taken ?Type insulin glargine 100 unit/mL 30 unit SQ DAILY diabetes 11/19/19 03/03/25 History subcutaneous solution multivitamin (Daily Multi-Vitamin 1 tab PO DAILY suppl ement 06/28/20 03/03/25 History tablet) sitagliptin phosphate 50 mg tablet 50 mg PO DAILY diab etes 11/02/21 03/03/25 History (Januvia) pravastatin 20 mg tablet 20 mg PO DAILY hyperlipidemi a 01/17/22 03/03/25 History cranberry 500 mg capsule 500 mg PO DAILY supplement 1 09/25/22 03/03/25 History docusate sodium 100 mg capsule 100 mg PO DAILY PRN sto ol softn 07/25/23 Unknown History (Colace) metoprolol tartrate 25 mg tablet 12.5 mg (1/2 x 25 mg) PO BID 06/18/24 03/03/25 Rx hypertension #45 TABLETS apixaban 5 mg tablet (Eliquis) 5 mg PO BID atrial fibr illation 08/04/24 03/03/25 Rx #180 TABLETS albuterol sulfate 90 mcg/actuation 2 puff inhalation Q 4H PRN 10/23/24 Unknown Rx aerosol inhaler shortness of breath or wheez ing #3 device guaifenesin 1,200 mg tablet, 1,200 mg PO Q12H #180 tab s 10/23/24 Unknown Rx extended release 12 hr umeclidinium 62.5 mcg-vilanterol 1 inh inhalation QDAY copd #60 ea 10/23/24 03/03/25 Rx 25 mcg/actuation powdr for inhalation (Anoro Ellipta) clopidogrel 75 mg tablet (Plavix) 75 mg PO DAILY atria l fibrillation 11/11/24 03/03/25 Rx #90 tabs lisinopril 2.5 mg tablet 2.5 mg PO DAILY hypertension #90 02/02/25 03/03/25 Rx TABLETS Allergy/AdvReac Type Severity Reaction Status Date / [...] long ago did patient quit smokin years Physical Exam Narrative Comfortable. No apparent distress. Sitting up in chair. Heart sounds 1 and 2 noted. Tachycardic. Chest clear to auscultation bilaterally. Alert oriented x3. Trace bilateral ankle edema. Risk Stratification Risk Stratification Applicable: No Objective Data Vital Signs: Vital Signs Temp Pulse Resp BP Pulse Ox O2 Del Method O2 Flow Rate 98.0 F 78 19 H 113/40 L 93 Nasal Cannula 4 03/06/25 06:25 03/06/25 09:18 03/06/25 07:41 03/06/25 06:25 03/06/25 07:40 03/06/25 07:40 03/06/25 07:40 Oxygen Flow Rate (L/min) 4 Oxygen Delivery Method Nasal Cannula Weight: 162 lb 11.218 oz Body Mass Index (BMI) 26.2 Intake & Output: Intake and Output for Last 24 Hours 03/04/25 03/05/25 03/06/25 23:59 23:59 23:59 Intake Total 50 / 290 908.00 / 908.00 0 / 0 Output Total 3451 / 3451 1550 / 1550 Balance 50 / 40 -2543.00 / -2543.00 -1550 / -1550 Lab / Micro Data 03/05/25 06:08 03/06/25 06:02 Labs: Laboratory Results - last 24 hr 03/05/25 11:24: POC Glucose 152 H 03/05/25 16:35: POC Glucose 111 H 03/05/25 21:06: POC Glucose 140 H 03/06/25 06:02: Sodium 138, Potassium 4.7, Chloride 99, Carbon Dioxide 31.2, Anion Gap 8, BUN 40 H, Creatinine 2.23 H, Estim Creat Clear Calc 23.84 L, Est GFR (MDRD) Non-Af 29 L, BUN/Creatinine Ratio 17.8, Glucose 118 H, Calcium 9.1, Phosphorus 3.9 03/06/25 06:32: POC Glucose 109 H Rhythm Strip Rhythm Strip: Atrial flutter Rate: 108 Ectopy: None Cardiology Labs/Tests 03/06/25 06:02: Sodium 138, Potassium 4.7, Chloride 99, Carbon Dioxide 31.2, Anion Gap 8, BUN 40 H, Creatinine 2.23 H, Est GFR (MDRD) Non-Af 29 L, BUN/Creatinine Ratio 17.8, Glucose 118 H, Calcium 9.1, Phosphorus 3.9 Rhythm: EKG: ECHO: Normal LV systolic function. Stage I diastolic dysfunction. Moderate mitral regurgitation, moderate tricuspid regurgitation. Stress Test: Cardiac Cath: PCI: CT Surgery: Holter monitor: EPS: PPM: CXR: Chest CT Scan: Radiography Diagnostic Testing: Radiology Impression Echocardiogram 03/04/25 20:08 Interpretation Summary Moderate concentric left ventricular hypertrophy. The LV ejection fraction is 55 %. Stage 1 diastolic dysfunction. The left atrium is severely enlarged. Severe mitral valve annular calcification. Moderate posteriorly directed mitral valve regurgitation. Moderate tricuspid valve regurgitation. Estimated pulmonary artery systolic pressure 42 mmHg. Mild (1+) pulmonic valve insufficiency. The study was technically difficult. Ordering Physician: Nicola Lindsey Referring Physician: SCOTTY ELIZALDE Performed By: Haley Stevens and Student 03/06/25 0979 <Electronically signed by Marjorie Green MD> Cosigner Signature (if applicable): CC: Dr. Tonio Fajardo, DO~ Signed [facility] Work Phone: [phone] Consult note [facility] Medical Records Department [address] [place] [address] Consultation - Cardiology 03/06/25925 MR#: [id number] Acct: [id number] Name: PEDRO HILLMAN Rep #:[id number] : 1945 80 From: Marjorie Green MD PCP: Dr. Tonio Fajardo, DO Status:ADM IN Location: [place] [address] Assessment & Plan Assessment/Plan (1) Atrial flutter with rapid ventricular response: PLAN: Increase metoprolol to 25 mg twice daily. Start on diltiazem 60 mg p.o. every 6 hours. If he can tolerate that, then switch to longer acting in the morning. Continue apixaban for prevention of thromboembolic phenomenon. (2) Acute on chronic diastolic congestive heart failure: PLAN: Continue furosemide. Changed to 40 mg daily. Monitor electrolytes. (3) Coronary artery disease: PLAN: History of CABG. Continue beta-blockers. Statins. On apixaban. Recommend pharmacological stress test as outpatient. (4) Mitral valve regurgitation: PLAN: Furosemide. ACEI. (5) Tricuspid valve regurgitation: PLAN: Furosemide. (6) Hypertension: QUALIFIERS: Hypertension type: essential hypertension Qualified Code(s): I10 - Essential (primary) hypertension PLAN: Beta-blockers, diltiazem, furosemide, ACEI. (7) Diabetes: PLAN: As per internal medicine. (8) Peripheral arterial disease: PLAN: Follows with vascular surgery. On clopidogrel. HPI Consult Data Date of Consult: 03/06/25 HPI Narrative Reason for Consultation: Atrial flutter HPI Narrative: 80-year-old gentleman with past medical history significant for coronary artery disease status postCABG in 2013, HFpEF, atrial flutter, peripheral arterial disease and diabetes mellitus. Presented to the hospital with complaints of shortness of breath with exertion. According to him, the symptoms started abouta week prior to presentation. Denies any chest pains either at rest or with exertion. Denied orthopnea. No PND. No ankle edema. In the emergency room, he was noted to be in atrial flutterwith rapid ventricular response. Also noted to have markedly elevated BNP levels. He was started vaishali diltiazem infusion for controlling his ventricular rate with his atrial flutter. Also started on IV diuretics for his congestive heart failure. Presently patient feels much better. According to him, his shortness of breath is much improved. [facility] Medical History (Updated 03/06/25 @ 09:[address] Marjorie Green MD) Other persistent atrial fibrillation New onset atrial flutter DIMA Wears hearing aid in both ears Former smoker Coronary artery disease Peripheral vascular occlusive disease BPH (benign prostatic hyperplasia) Chronic kidney disease, stage 3 Atherosclerosis of coronary artery of [place] heart without angina pectoris Hyperlipidemia Lower extremity edema Venous insufficiency Malnutrition Delayed wound healing Osteomyelitis of ankle, left, acute Ulcer of left lower extremity with fat layer exposed Type 2 diabetes mellitus with diabetic polyneuropathy Anemia GERD (gastroesophageal reflux disease) Hypertension Home Medications ?Medication ?Instructions ?Recorded ?Last Taken ?Type insulin glargine 100 unit/mL 30 unit SQ DAILY diabetes 11/19/19 03/03/25 History subcutaneous solution multivitamin (Daily Multi-Vitamin 1 tab PO DAILY suppl ement 06/28/20 03/03/25 History tablet) sitagliptin phosphate 50 mg tablet 50 mg PO DAILY diab etes 11/02/21 03/03/25 History (Januvia) pravastatin 20 mg tablet 20 mg PO DAILY hyperlipidemi a 01/17/22 03/03/25 History cranberry 500 mg capsule 500 mg PO DAILY supplement 1 09/25/22 03/03/25 History docusate sodium 100 mg capsule 100 mg PO DAILY PRN sto ol softn 07/25/23 Unknown History (Colace) metoprolol tartrate 25 mg tablet 12.5 mg (1/2 x 25 mg) PO BID 06/18/24 03/03/25 Rx hypertension #45 TABLETS apixaban 5 mg tablet (Eliquis) 5 mg PO BID atrial fibr illation 08/04/24 03/03/25 Rx #180 TABLETS albuterol sulfate 90 mcg/actuation 2 puff inhalation Q 4H PRN 10/23/24 Unknown Rx aerosol inhaler shortness of breath or wheez ing #3 device guaifenesin 1,200 mg tablet, 1,200 mg PO Q12H #180 tab s 10/23/24 Unknown Rx extended release 12 hr umeclidinium 62.5 mcg-vilanterol 1 inh inhalation QDAY copd #60 ea 10/23/24 03/03/25 Rx 25 mcg/actuation powdr for inhalation (Anoro Ellipta) clopidogrel 75 mg tablet (Plavix) 75 mg PO DAILY atria l fibrillation 11/11/24 03/03/25 Rx #90 tabs lisinopril 2.5 mg tablet 2.5 mg PO DAILY hypertension #90 02/02/25 03/03/25 Rx TABLETS Allergy/AdvReac Type Severity Reaction Status Date / [...] long ago did patient quit smokin years Physical Exam Narrative Comfortable. No apparent distress. Sitting up in chair. Heart sounds 1 and 2 noted. Tachycardic. Chest clear to auscultation bilaterally. Alert oriented x3. Trace bilateral ankle edema. Risk Stratification Risk Stratification Applicable: No Objective Data Vital Signs: Vital Signs Temp Pulse Resp BP Pulse Ox O2 Del Method O2 Flow Rate 98.0 F 78 19 H 113/40 L 93 Nasal Cannula 4 03/06/25 06:25 03/06/25 09:18 03/06/25 07:41 03/06/25 06:25 03/06/25 07:40 03/06/25 07:40 03/06/25 07:40 Oxygen Flow Rate (L/min) 4 Oxygen Delivery Method Nasal Cannula Weight: 162 lb 11.218 oz Body Mass Index (BMI) 26.2 Intake & Output: Intake and Output for Last 24 Hours 03/04/25 03/05/25 03/06/25 23:59 23:59 23:59 Intake Total 50 / 290 908.00 / 908.00 0 / 0 Output Total 3451 / 3451 1550 / 1550 Balance 50 / 40 -2543.00 / -2543.00 -1550 / -1550 Lab / Micro Data 03/05/25 06:08 03/06/25 06:02 Labs: Laboratory Results - last 24 hr 03/05/25 11:24: POC Glucose 152 H 03/05/25 16:35: POC Glucose 111 H 03/05/25 21:06: POC Glucose 140 H 03/06/25 06:02: Sodium 138, Potassium 4.7, Chloride 99, Carbon Dioxide 31.2, Anion Gap 8, BUN 40 H,Creatinine 2.23 H, Estim Creat Clear Calc 23.84 L, Est GFR (MDRD) Non-Af 29 L, BUN/Creatinine Ratio17.8, Glucose 118 H, Calcium 9.1, Phosphorus 3.9 03/06/25 06:32: POC Glucose 109 H Rhythm Strip Rhythm Strip: Atrial flutter Rate: 108 Ectopy: None Cardiology Labs/Tests 03/06/25 06:02: Sodium 138, Potassium 4.7, Chloride 99, Carbon Dioxide 31.2, Anion Gap 8, BUN 40 H,Creatinine 2.23 H, Est GFR (MDRD) Non-Af 29 L, BUN/Creatinine Ratio 17.8, Glucose 118 H, Calcium 9.1, Phosphorus 3.9 Rhythm: EKG: ECHO: Normal LV systolic function. Stage I diastolic dysfunction. Moderate mitral regurgitation, moderate tricuspid regurgitation. Stress Test: Cardiac Cath: PCI: CT Surgery: Holter monitor: EPS: PPM: CXR: Chest CT Scan: Radiography Diagnostic Testing: Radiology Impression Echocardiogram 03/04/25 20:08 Interpretation Summary Moderate concentric left ventricular hypertrophy. The LV ejection fraction is 55 %. Stage 1 diastolic dysfunction. The left atrium is severely enlarged. Severe mitral valve annular calcification. Moderate posteriorly directed mitral valve regurgitation. Moderate tricuspid valve regurgitation. Estimated pulmonary artery systolic pressure 42 mmHg. Mild (1+) pulmonic valve insufficiency. The study was technically difficult. Ordering Physician: Nicola Lindsey Referring Physician: SCOTTY ELIZALDE Performed By: Haley Stevens and Student 03/06/25 0933 Cosigner Signature (if applicable): CC: Dr. Tonio Fajardo, DO~ Signed [facility]07-17-2025 Progress note Author Deric Lantigua [facility] Note Date/Time March 05, 2025 3:56 pm [facility] Medical Records Department [address] [place] [address] Progress Note - Hospitalist 03/05/25 0719 MR#: [id number] Acct: [id number] Name: PEDRO HILLMAN Rep #:[id number] : 1945 80 From: Deric Smith PCP: Dr. Tonio Fajardo DO Status:ADM IN Location: [place] [address] Reason for Visit Chief Complaint: SOB. Objective Data Objective Data Vital Signs: Vital Signs Temp Pulse Resp BP Pulse Ox O2 Del Method O2 Flow Rate 98.2 F 61 16 113/48 L 100 Nasal Cannula 3 03/04/25 21:11 03/05/25 07:07 03/05/25 07:07 03/05/25 06:12 03/05/25 07:07 03/05/25 07:07 03/05/25 07:07 Oxygen Flow Rate (L/min) 3 Oxygen Delivery Method Nasal Cannula Weight: 158 lb 8.198 oz Body Mass Index (BMI) 25.5 Intake & Output: Intake and Output for Last 24 Hours 03/03/25 03/04/25 03/05/25 23:59 23:59 23:59 Intake Total 50 / 290 618.00 / 618.00 Output Total 1801 / 1801 Balance 50 / 40 -1183.00 / -1183.00 Lab / Micro Data 03/05/25 06:08 03/05/25 06:08 Labs: Laboratory Results - last 24 hr 03/04/25 15:10: WBC 7.6, RBC 3.74 L, Hgb 10.1 L, Hct 33.4 L, MCV 89.3, MCH 27.0,MCHC 30.2 L, RDW Std Deviation 54.2 H, RDW Coeff of Reggie 16.5 H, Plt Count 189, MPV 10.2, Immature Gran % (Auto) 0.700, Neut % (Auto) 78.1 H, Lymph % (Auto) 10.1 L, Hunt % (Auto) 9.1, Eos % (Auto) 1.6, Baso % (Auto) 0.4, Absolute Neuts (auto) 6.0, Absolute Lymphs (auto) 0.77 L, Nucleated RBC % 0, Sodium 138, Potassium 5.2 H, Chloride 102, Carbon Dioxide 28.6, Anion Gap 8, BUN 37 H, Creatinine 1.86 H, Estim Creat Clear Calc 28.58 L, Est GFR (MDRD) Non-Af 36 L, BUN/Creatinine Ratio 19.7, Glucose 124 H, Hemoglobin A1c 6.3 H, Calcium 9.3, Troponin T High Sens 44 H, NT pro BNP II 3316 H 03/04/25 17:20: Troponin T Hi Sens 2 Hr 45 H 03/04/25 19:15: Magnesium 2.0, Troponin T Hi Sens 4Hr 42 H, TSH 3.780 03/04/25 20:18: Urine Color Yellow, Urine Clarity Cloudy, Urine pH 6.5, Ur Specific [place] 1.010, Urine Protein 100 H, Urine Glucose (UA) Normal, Urine Ketones Negative, Urine Occult Blood 50 H, Urine Nitrite Positive H, Urine Bilirubin Negative, Urine Urobilinogen Normal, Ur Leukocyte Esterase 500 H, Urine RBC 5-10 SEEN, Urine WBC >100 SEEN, Ur Squamous Epith Cells 0 SEEN, Urine Bacteria 2+, Urine Mucus 0 SEEN 03/04/25 22:18: POC Glucose 80 03/05/25 06:01: POC Glucose 159 H 03/05/25 06:08: WBC 7.6, RBC 3.44 L, Hgb 9.3 L, Hct 30.1 L, MCV 87.5, MCH 27.0, MCHC 30.9 L, RDW Std Deviation 52.8 H, RDW Coeff of Reggie 16.6 H, Plt Count 181, MPV 10.7, Immature Gran % (Auto) 0.300, Neut % (Auto) 76.4 H, Lymph % (Auto) 9.5L, Hunt % (Auto) 11.4 H, Eos % (Auto) 2.0, Baso % (Auto) 0.4, Absolute Neuts (auto) 5.8, Absolute Lymphs (auto) 0.72 L, Nucleated RBC % 0, Sodium 138, Potassium 5.0, Chloride 101, Carbon Dioxide 27.2, Anion Gap 10, BUN 36 H, Creatinine 1.95 H, Estim Creat Clear Calc 27.26 L, Est GFR (MDRD) Non-Af 34 L, BUN/Creatinine Ratio 18.6, Glucose 171 H, Calcium 9.1, Phosphorus 3.3, Total Bilirubin 0.46, AST 15, ALT 10, Alkaline Phosphatase 75, NT pro BNP II 4176 H, Total Protein 7.3, Albumin 3.4, Globulin 3.9, Albumin/Globulin Ratio 0.9, Triglycerides 79, Cholesterol 117, LDL Cholesterol, Calc 63, VLDL Cholesterol 16, HDL Cholesterol 39 L, Cholesterol/HDL Ratio 3.04 Radiography Diagnostic Testing: Radiology Impression Chest X-Ray 03/04/25 14:59 IMPRESSION: Cardiomegaly and CHF with small right pleural effusion and bibasilar atelectasisworse at the right lung base. Reading Location: [facility] Chest X-Ray 03/05/25 04:30 IMPRESSION: Small interval improvement in right lung base aeration. Reading Location: [place] [address] Rhythm Strip Rhythm Strip: Atrial flutter Rate: 108 Ectopy: None Physical Exam Narrative Seen and examined Patient shortness of breath is improved. He was short of breath even at rest, worse with mild exertion/walking. Did not feel flutter waves/palpitation. No syncope. Denies chest pain. Had CABG several years ago and coronary stent prior to that. Denies burning with urination. Hadbowel movement Physical exam: General: Alert, Oriented x3, Cooperative HEENT: Atraumatic, PERRLA, EOMI, Normocephalic. Oral: No Gingival or Mucosal Lesions/ Ulcerations Neck: Supple, No JVD, Negative Carotid Bruits Chest wall/Lungs: Air entry diminished in bilateral lung bases. No crepitation/rhonchi Cardiovascular: Irregular rhythm, Normal S1,S2, systolic murmur. CABG scar Abdomen: Bowel Sounds Present, Soft, Non Tender, Non-Distended : No dysuria. No renal angle tenderness. No suprapubic tenderness. Extremities: Minimal to mild pedal edema, Capillary Refill Less than 3 Seconds Skin: No rashes, No breakdown Musculoskeletal: No Tenderness to Palpation of Joints or Extremities Neurological: Cranial nerves II-XII grossly intact, DTR 2+/4. No acute focal neurological deficit. Psych/Mental Status: Normal Affect, Appropriate. Assessment & Plan Assessment/Plan (1) CHF exacerbation: QUALIFIERS: Heart failure type: unspecified Qualified Code(s): I50.9 - Heart failure, unspecified (2) Atrial flutter with rapid ventricular response: (3) Chronic anticoagulation: (4) Elevated troponin: (5) Hyperkalemia: (6) Pleural effusion on right: (7) Acute cystitis with hematuria: (8) Atherosclerosis of coronary artery of [place] heart without angina pectoris: QUALIFIERS: Coronary Disease-Associated Artery/Lesion type: nativeartery Qualified Code(s): I25.10 - Atherosclerotic heart disease of [place] coronary artery without angina pectoris (9) Overweight (BMI 25.0-29.9): PLAN: Plan 80-year-old gentleman on 4 L of O2 with history of lung cancer/COPD was admittedwith shortness of breath for 1 day. Noted hypoxia 78 to 80% on room air on EMS. No leg swelling. No fever chest pain. Denies any change in cough. EMS vitalsshows tachycardia heart rate 120/min, glucose 174, pulse ox 83%, end-tidal 30. 1. Acute exacerbation of chronic HFpEF: Patient admitted in PCU. elevated NT pro-BNP II of 3,316 pg/mL with a corresponding CXR that revealed cardiomegaly and CHF with small right pleural effusion and bibasilar atelectasis worse at theRight lung base Maintain metoprolol and lisinopril as before. 03/04: Heart failure core measures including intake and output, fluid restrictionless than 1500 mL, daily weight monitoring, kidney and electrolytes monitoring. On furosemide 40 mg twice daily. Serial troponins 44, 45 and 42 therefore no significant delta change. ACS ruled out. [facility] Professional is consulted. Repeat proBNP is elevated but it does not reflect treatment response as it should not be ordered for that. Clinically patient is feeling better with improvement in shortness of breath. 2D echo 03/05 reported EF 55%, PASP 42 mmHg with moderate TR, moderate IA and mild PI. 2. EKG evidence of Atrial Flutter; with Rapid Ventricular Response of ~117 bpm even after being treated with IV Cardizem bolus probably precipitating CHF exacerbation: Patient already on apixaban patient had digoxin. TSH 3.7 normal. Twelve-lead EKG individually reviewed and shows atrial flutter 2 is to 1 conduction. Later on irregular variable conduction on bus driver/monitor 3. CKD; stage IIIb with hyperkalemia, present on admission:-serum creatinine of1.86 mg/dL, BUN of 37 mg/dL and EGFR of 36 mL/min present on admission. Treatedwith IV furosemide. Repeat potassium 5.0 slightly better than 5.2. His baseline creatinine runs around 2.21-2.36. Admitted with 1.87, today 1.86. 5. UA positive for Acute Cystitis; with microscopic hematuria:- Start IV ceftriaxone empirically. Urine culture ordered 6. CAD; s/p CABG x 3 (2012) - 7. Essential hypertension; on lisinopril and metoprolol BID - Resume home regimen plus give as needed IV hydralazine for systolic blood pressure greater than 160 mmHg. 8. Hyperlipidemia; on pravastatin - Continue statin and check lipid profile. 9. Chronic hypoxic respiratory failure on 4 L continuously: 10. 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 On sitagliptin. Accu-Chek before meals and at bedtime with Humalog sliding scale coverage and hypoglycemia protocol. 11. Peripheral artery disease with history of left lower extremity ulcer statuspost aortofemoral bypass graft in 2009 and chronic venous insufficiency. Continue clopidogrel 12. Overweight; with BMI of 26 this admission - Weight loss will be recommended. 13. Chronic anemia - Stable with hemoglobin of 10.1 g/dL and MCV of 89.3 fL present on admission. Hemoglobin 9.3. Does not show significant drop or meet criteria for acute anemia 14. Chronic degenerative arthritis, give acetaminophen prn pain or fever DVT prophylaxis - Patient already on apixaban for #2 which will be continued. Laboratory Results 03/04/25 15:10: Sodium 138, Potassium 5.2 H, Chloride 102, Carbon Dioxide 28.6, Anion Gap 8, BUN 37 H, Creatinine 1.86 H, Estim Creat Clear Calc 28.58 L, Est GFR (MDRD) Non-Af 36 L, BUN/Creatinine Ratio 19.7, Glucose 124 H, Hemoglobin A1c6.3 H, Calcium 9.3, Troponin T High Sens 44 H, NT pro BNP II 3316 H 03/04/25 17:20: Troponin T Hi Sens 2 Hr 45 H 03/04/25 19:15: Magnesium 2.0, Troponin T Hi Sens 4Hr 42 H, TSH 3.780 03/04/25 20:18: Urine Color Yellow, Urine Clarity Cloudy, Urine pH 6.5, Ur Specific [place] 1.010, Urine Protein 100 H, Urine Glucose (UA) Normal, Urine Ketones Negative, Urine Occult Blood 50 H, Urine Nitrite Positive H, Urine Bilirubin Negative, Urine Urobilinogen Normal, Ur Leukocyte Esterase 500 H, Urine RBC 5-10 SEEN, Urine WBC >100 SEEN, Ur Squamous Epith Cells 0 SEEN, Urine Bacteria 2+, Urine Mucus 0 SEEN 03/04/25 22:18: POC Glucose 80 03/05/25 06:01: POC Glucose 159 H 03/05/25 06:08: WBC 7.6, RBC 3.44 L, Hgb 9.3 L, Hct 30.1 L, MCV 87.5, MCH 27.0, MCHC 30.9 L, RDW Std Deviation 52.8 H, RDW Coeff of Reggie 16.6 H, Plt Count 181, MPV 10.7, Immature Gran % (Auto) 0.300, Neut % (Auto) 76.4 H, Lymph % (Auto) 9.5L, Hunt % (Auto) 11.4 H, Eos % (Auto) 2.0, Baso % (Auto) 0.4, Absolute Neuts (auto) 5.8, Absolute Lymphs (auto) 0.72 L, Nucleated RBC % 0 Sodium 138, Potassium 5.0, Chloride 101, Carbon Dioxide 27.2, Anion Gap 10, BUN36 H, Creatinine 1.95 H, Estim Creat Clear Calc 27.26 L, Est GFR (MDRD) Non-Af 34 L, BUN/Creatinine Ratio 18.6, Glucose 171 H, Calcium 9.1, Phosphorus 3.3, Total Bilirubin 0.46, AST 15, ALT 10, Alkaline Phosphatase 75, NT pro BNP II 4176 H, Total Protein 7.3, Albumin 3.4, Globulin 3.9, Albumin/Globulin Ratio 0.9, Triglycerides 79, Cholesterol 117, LDL Cholesterol, Calc 63, VLDL Cholesterol 16, HDL Cholesterol 39 L, Cholesterol/HDL Ratio 3.04 03/05/25 11:24: POC Glucose 152 H Clinical Impression(s) from Imaging Studies Chest X-Ray 03/04/25 14:59 IMPRESSION: Cardiomegaly and CHF with small right pleural effusion and bibasilar atelectasisworse at the right lung base. Reading Location: [facility] Echocardiogram 03/04/25 20:08 Interpretation Summary Moderate concentric left ventricular hypertrophy. The LV ejection fraction is 55 %. Stage 1 diastolic dysfunction. The left atrium is severely enlarged. Severe mitral valve annular calcification. Moderate posteriorly directed mitral valve regurgitation. Moderate tricuspid valve regurgitation. Estimated pulmonary artery systolic pressure 42 mmHg. Mild (1+) pulmonic valve insufficiency. The study was technically difficult. Ordering Physician: Nicola Lindsey Referring Physician: SCOTTY ELIZALDE Performed By: Haley Stevens and Student Chest X-Ray 03/05/25 04:30 IMPRESSION: Small interval improvement in right lung base aeration. Reading Location: [place] [address] Charges/Coding Addendum Addendum: Total time of the visit including total time spent in counseling or coordinationof care, (more than 50% of the total time, spent in obtaining medical information from nurses and other ancillary care providers ,explaining to the patient about labs, imaging, diagnosis and management of active complex medical conditions), multiple conditions,, cardiology consult review of labs and imagingis 35 minutes. Visit Charges Inpatient E&M: 68574 Subs Hosp L3 03/05/25 1556 <Electronically signed by Deric Lantigua MD> Cosigner Signature (if applicable): CC: ~ Signed [facility] Work Phone: 1(198) 169-381307-17-2025 Progress note [facility] Medical Records Department [address] [place] [address] Progress Note - Hospitalist 03/05/25 0719 MR#: [id number] Acct: [id number] Name: PEDRO HILLMAN Rep #:[id number] : 1945 80 From: Deric Smith PCP: Dr. Tonio Fajardo, DO Status:ADM IN Location: [place] [address] Reason for Visit Chief Complaint: SOB. Objective Data Objective Data Vital Signs: Vital Signs Temp Pulse Resp BP Pulse Ox O2 Del Method O2 Flow Rate 98.2 F 61 16 113/48 L 100 Nasal Cannula 3 03/04/25 21:11 03/05/25 07:07 03/05/25 07:07 03/05/25 06:12 03/05/25 07:07 03/05/25 07:07 03/05/25 07:07 Oxygen Flow Rate (L/min) 3 Oxygen Delivery Method Nasal Cannula Weight: 158 lb 8.198 oz Body Mass Index (BMI) 25.5 Intake & Output: Intake and Output for Last 24 Hours 03/03/25 03/04/25 03/05/25 23:59 23:59 23:59 Intake Total 50 / 290 618.00 / 618.00 Output Total 1801 / 1801 Balance 50 / 40 -1183.00 / -1183.00 Lab / Micro Data 03/05/25 06:08 03/05/25 06:08 Labs: Laboratory Results - last 24 hr 03/04/25 15:10: WBC 7.6, RBC 3.74 L, Hgb 10.1 L, Hct 33.4 L, MCV 89.3, MCH 27.0,MCHC 30.2 L, RDW Std Deviation 54.2 H, RDW Coeff of Reggie 16.5 H, Plt Count 189, MPV 10.2, Immature Gran % (Auto) 0.700, Neut % (Auto) 78.1 H, Lymph % (Auto) 10.1 L, Hunt % (Auto) 9.1, Eos % (Auto) 1.6, Baso % (Auto) 0.4,Absolute Neuts (auto) 6.0, Absolute Lymphs (auto) 0.77 L, Nucleated RBC % 0, Sodium 138, Potassium 5.2 H, Chloride 102, Carbon Dioxide 28.6, Anion Gap 8, BUN 37 H, Creatinine 1.86 H, Estim Creat Clear Calc 28.58 L, Est GFR (MDRD) Non-Af 36 L, BUN/Creatinine Ratio 19.7, Glucose 124 H, Hemoglobin A1c6.3 H, Calcium 9.3, Troponin T High Sens 44 H, NT pro BNP II 3316 H 03/04/25 17:20: Troponin T Hi Sens 2 Hr 45 H 03/04/25 19:15: Magnesium 2.0, Troponin T Hi Sens 4Hr 42 H, TSH 3.780 03/04/25 20:18: Urine Color Yellow, Urine Clarity Cloudy, Urine pH 6.5, Ur Specific [place] 1.010, Urine Protein 100 H, Urine Glucose (UA) Normal, Urine Ketones Negative, Urine Occult Blood 50 H, Urine Nitrite Positive H, Urine Bilirubin Negative, Urine Urobilinogen Normal, Ur Leukocyte Esterase 500 H, Urine RBC 5-10 SEEN, Urine WBC >100 SEEN, Ur Squamous Epith Cells 0 SEEN, Urine Bacteria 2+,Urine Mucus 0 SEEN 03/04/25 22:18: POC Glucose 80 03/05/25 06:01: POC Glucose 159 H 03/05/25 06:08: WBC 7.6, RBC 3.44 L, Hgb 9.3 L, Hct 30.1 L, MCV 87.5, MCH 27.0, MCHC 30.9 L, RDW Std Deviation 52.8 H, RDW Coeff of Reggie 16.6 H, Plt Count 181, MPV 10.7, Immature Gran % (Auto) 0.300, Neut % (Auto) 76.4 H, Lymph % (Auto) 9.5L, Hunt % (Auto) 11.4 H, Eos % (Auto) 2.0, Baso % (Auto) 0.4, Absolute Neuts (auto) 5.8, Absolute Lymphs (auto) 0.72 L, Nucleated RBC % 0, Sodium 138, Potassium5.0, Chloride 101, Carbon Dioxide 27.2, Anion Gap 10, BUN 36 H, Creatinine 1.95 H, Estim Creat Clear Calc 27.26 L, Est GFR (MDRD) Non-Af 34 L, BUN/Creatinine Ratio 18.6, Glucose 171 H, Calcium 9.1, Phosphorus 3.3, Total Bilirubin 0.46, AST 15, ALT 10, Alkaline Phosphatase 75, NT pro BNP II 4176 H, T otal Protein 7.3, Albumin 3.4, Globulin 3.9, Albumin/Globulin Ratio 0.9, Triglycerides 79, Cholesterol 117, LDL Cholesterol, Calc 63, VLDL Cholesterol 16, HDL Cholesterol 39 L, Cholesterol/HDL Ratio 3.04 Radiography Diagnostic Testing: Radiology Impression Chest X-Ray 03/04/25 14:59 IMPRESSION: Cardiomegaly and CHF with small right pleural effusion and bibasilar atelectasisworse at the right lung base. Reading Location: [facility]1 Chest X-Ray 03/05/25 04:30 IMPRESSION: Small interval improvement in right lung base aeration. Reading Location: [facility]2 Rhythm Strip Rhythm Strip: Atrial flutter Rate: 108 Ectopy: None Physical Exam Narrative Seen and examined Patient shortness of breath is improved. He was short of breath even at rest, worse with mild exertion/walking. Did not feel flutter waves/palpitation. No syncope. Denies chest pain. Had CABG severalyears ago and coronary stent prior to that. Denies burning with urination. Hadbowel movement Physical exam: General: Alert, Oriented x3, Cooperative HEENT: Atraumatic, PERRLA, EOMI, Normocephalic. Oral: No Gingival or Mucosal Lesions/ Ulcerations Neck: Supple, No JVD, Negative Carotid Bruits Chest wall/Lungs: Air entry diminished in bilateral lung bases. No crepitation/rhonchi Cardiovascular: Irregular rhythm, Normal S1,S2, systolic murmur. CABG scar Abdomen: Bowel Sounds Present, Soft, Non Tender, Non-Distended : No dysuria. No renal angle tenderness. No suprapubic tenderness. Extremities: Minimal to mild pedal edema, Capillary Refill Less than 3 Seconds Skin: No rashes, No breakdown Musculoskeletal: No Tenderness to Palpation of Joints or Extremities Neurological: Cranial nerves II-XII grossly intact, DTR 2+/4. No acute focal neurological deficit. Psych/Mental Status: Normal Affect, Appropriate. Assessment & Plan Assessment/Plan (1) CHF exacerbation: QUALIFIERS: Heart failure type: unspecified Qualified Code(s): I50.9 - Heart failure, unspecified (2) Atrial flutter with rapid ventricular response: (3) Chronic anticoagulation: (4) Elevated troponin: (5) Hyperkalemia: (6) Pleural effusion on right: (7) Acute cystitis with hematuria: (8) Atherosclerosis of coronary artery of [place] heart without angina pectoris: QUALIFIERS: Coronary Disease-Associated Artery/Lesion type: nativeartery Qualified Code(s): I25.10 - Atherosclerotic heart disease of [place] coronary artery without angina pectoris (9) Overweight (BMI 25.0-29.9): PLAN: Plan 80-year-old gentleman on 4 L of O2 with history of lung cancer/COPD was admittedwith shortness of breath for 1 day. Noted hypoxia 78 to 80% on room air on EMS. No leg swelling. No fever chest pain. Denies any change in cough. EMS vitalsshows tachycardia heart rate 120/min, glucose 174, pulse ox 83%, end-tidal 30. 1. Acute exacerbation of chronic HFpEF: Patient admitted in PCU. elevated NT pro-BNP II of 3,316 pg/mL with a corresponding CXR that revealed cardiomegaly and CHF with small right pleural effusion and bibasilar atelectasis worse at theRight lung base Maintain metoprolol and lisinopril as before. 03/04: Heart failure core measures including intake and output, fluid restrictionless than 1500 mL, daily weight monitoring, kidney and electrolytes monitoring. On furosemide 40 mg twice daily. Serialtroponins 44, 45 and 42 therefore no significant delta change. ACS ruled out. [facility] is consulted. Repeat proBNP is elevated but it does not reflect treatment response as it should not be ordered for that. Clinically patient is feeling better with improvement in shortness of breath. 2D echo 03/05 reported EF 55%, PASP 42 mmHg with moderate TR, moderate IA and mild PI. 2. EKG evidence of Atrial Flutter; with Rapid Ventricular Response of ~117 bpm even after being treated with IV Cardizem bolus probably precipitating CHF exacerbation: Patient already on apixaban patient had digoxin. TSH 3.7 normal. Twelve-lead EKG individually reviewed and shows atrial flutter 2 is to 1 conduction. Later on irregular variable conduction on bus driver/monitor 3. CKD; stage IIIb with hyperkalemia, present on admission:-serum creatinine of1.86 mg/dL, BUN of 37 mg/dL and EGFR of 36 mL/min present on admission. Treatedwith IV furosemide. Repeat potassium 5.0 slightly better than 5.2. His baseline creatinine runs around 2.21-2.36. Admitted with 1.87, today 1.86. 5. UA positive for Acute Cystitis; with microscopic hematuria:- Start IV ceftriaxone empirically. Urine culture ordered 6. CAD; s/p CABG x 3 (2012) - 7. Essential hypertension; on lisinopril and metoprolol BID - Resume home regimen plus give as needed IV hydralazine for systolic blood pressure greater than 160 mmHg. 8. Hyperlipidemia; on pravastatin - Continue statin and check lipid profile. 9. Chronic hypoxic respiratory failure on 4 L continuously: 10. 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 On sitagliptin. Accu-Chek before meals and at bedtime with Humalog sliding scale coverage and hypoglycemia protocol. 11. Peripheral artery disease with history of left lower extremity ulcer statuspost aortofemoral bypass graft in 2009 and chronic venous insufficiency. Continue clopidogrel 12. Overweight; with BMI of 26 this admission - Weight loss will be recommended. 13. Chronic anemia - Stable with hemoglobin of 10.1 g/dL and MCV of 89.3 fL present on admission. Hemoglobin 9.3. Does not show significant drop or meet criteria for acute anemia 14. Chronic degenerative arthritis, give acetaminophen prn pain or fever DVT prophylaxis - Patient already on apixaban for #2 which will be continued. Laboratory Results 03/04/25 15:10: Sodium 138, Potassium 5.2 H, Chloride 102, Carbon Dioxide 28.6, Anion Gap 8, BUN 37H, Creatinine 1.86 H, Estim Creat Clear Calc 28.58 L, Est GFR (MDRD) Non-Af 36 L, BUN/Creatinine Ratio 19.7, Glucose 124 H, Hemoglobin A1c6.3 H, Calcium 9.3, Troponin T High Sens 44 H, NT pro BNP II 3316 H 03/04/25 17:20: Troponin T Hi Sens 2 Hr 45 H 03/04/25 19:15: Magnesium 2.0, Troponin T Hi Sens 4Hr 42 H, TSH 3.780 03/04/25 20:18: Urine Color Yellow, Urine Clarity Cloudy, Urine pH 6.5, Ur Specific [place] 1.010, Urine Protein 100 H, Urine Glucose (UA) Normal, Urine Ketones Negative, Urine Occult Blood 50 H, Urine Nitrite Positive H, Urine Bilirubin Negative, Urine Urobilinogen Normal, Ur Leukocyte Esterase 500 H, Urine RBC 5-10 SEEN, Urine WBC >100 SEEN, Ur Squamous Epith Cells 0 SEEN, Urine Bacteria 2+,Urine Mucus 0 SEEN 03/04/25 22:18: POC Glucose 80 03/05/25 06:01: POC Glucose 159 H 03/05/25 06:08: WBC 7.6, RBC 3.44 L, Hgb 9.3 L, Hct 30.1 L, MCV 87.5, MCH 27.0, MCHC 30.9 L, RDW Std Deviation 52.8 H, RDW Coeff of Reggie 16.6 H, Plt Count 181, MPV 10.7, Immature Gran % (Auto) 0.300, Neut % (Auto) 76.4 H, Lymph % (Auto) 9.5L, Hunt % (Auto) 11.4 H, Eos % (Auto) 2.0, Baso % (Auto) 0.4, Absolute Neuts (auto) 5.8, Absolute Lymphs (auto) 0.72 L, Nucleated RBC % 0 Sodium 138, Potassium 5.0, Chloride 101, Carbon Dioxide 27.2, Anion Gap 10, BUN36 H, Creatinine 1.95 H, Estim Creat Clear Calc 27.26 L, Est GFR (MDRD) Non- Af 34 L, BUN/Creatinine Ratio 18.6, Glucose 171 H, Calcium 9.1, Phosphorus 3.3, Total Bilirubin 0.46, AST 15, ALT 10, Alkaline Phosphatase 75, NT pro BNP II 4176 H, Total Protein 7.3, Albumin 3.4, Globulin 3.9, Albumin/Globulin Ratio 0.9, Triglycerides 79, Cholesterol 117, LDL Cholesterol, Calc 63, VLDL Cholesterol 16, HDL Cholesterol 39 L, Cholesterol/HDL Ratio 3.04 03/05/25 11:24: POC Glucose 152 H Clinical Impression(s) from Imaging Studies Chest X-Ray 03/04/25 14:59 IMPRESSION: Cardiomegaly and CHF with small right pleural effusion and bibasilar atelectasisworse at the right lung base. Reading Location: [facility] Echocardiogram 03/04/25 20:08 Interpretation Summary Moderate concentric left ventricular hypertrophy. The LV ejection fraction is 55 %. Stage 1 diastolic dysfunction. The left atrium is severely enlarged. Severe mitral valve annular calcification. Moderate posteriorly directed mitral valve regurgitation. Moderate tricuspid valve regurgitation. Estimated pulmonary artery systolic pressure 42 mmHg. Mild (1+) pulmonic valve insufficiency. The study was technically difficult. Ordering Physician: Nicola Lindsey Referring Physician: SCOTTY ELIZALDE Performed By: Haley Stevens and Student Chest X-Ray 03/05/25 04:30 IMPRESSION: Small interval improvement in right lung base aeration. Reading Location: [place] [address] Charges/Coding Addendum Addendum: Total time of the visit including total time spent in counseling or coordinationof care, (more than50% of the total time, spent in obtaining medical information from nurses and other ancillary care providers ,explaining to the patient about labs, imaging, diagnosis and management of active complexmedical conditions), multiple conditions,, cardiology consult review of labs and imagingis 35 minutes. Visit Charges Inpatient E&M: 28003 Subs Hosp L3 03/05/25 3691 Cosigner Signature (if applicable): CC: ~ Signed [facility]07-17-2025 History and physical note Author Nicola Madison [facility] Note Date/Time March 05, 2025 6:22 am [facility] Medical Records Department [address] [place] [address] H&P Exam - Hospitalist 03/04/251921 MR#: [id number] Acct: [id number] Name: PEDRO HILLMAN Rep #:[id number] : 1945 80 From: Nicola Levy DO PCP: Dr. Tonio Fajardo, DO Status:ADM IN Location: [id number] HPI - General General Date of Admission: 03/04/25 Date of Service: 03/04/25 Chief Complaint: SOB. HPI Narrative PEDRO HILLMAN, is a 80 M with a past medical history of essential hypertension;on lisinopril and metoprolol BID, hyperlipidemia; on pravastatin, overweight; with BMI of 26 this admission, former tobacco abuse x ~30 years (quit ~10 years ago); with subsequent COPD plus lung cancer and chronic cough, chronic hypoxic respiratory failure; on 4L NC continuously, CAD; s/p CABG x 3 (2012), chronic atrial fibrillation; on apixaban, DM-2; of unknown control on insulin glargine 40U sq daily plus sitagliptin, diabetic neuropathy, PVD; with history of LLE ulcer s/p aortofemoral bypass (~2009) on clopidogrel, history of osteomyelitis of the Left ankle, chronic venous insufficiency, CKD; stage IIIb, chronic anemia, BPH; s/p TURP, history of COVID-19 and OA who presents to [facility] ER complaining of SOB. Mr. Hillman reports his symptoms began ~3-4 days prior to admission with the gradual-onset of [place] that progressed to SOB at rest when he was trying to changehis oxygen tank earlier today. He states his chronic cough is unchanged from previous and he denies lower extremity edema, chest pain, wheezing, fever or chills. He states his symptoms are similar to his previous AE CHF. His last echocardiogram was done here on August 22, 2023 which revealed LVEF ~53% with moderate mitral annular calcification and gkjx-pl-ubzqlbay (~1-2+) mitral valve insufficiency with a pulmonary artery systolic pressure of 28 mmHg in addition to mild (1+) pulmonic valve insufficiency. In the ER he was noted to have an elevated NT pro-BNP II of 3,316 pg/mL with a corresponding CXR that revealed cardiomegaly and CHF with small right pleural effusion and bibasilar atelectasisworse at the Right lung base in addition to laboratory evidence of elevated troponin T of 44 ng/L suspected to be due to Acute Cardiac Strain plus EKG evidence of Atrial Flutter; with Rapid Ventricular Response of ~117 bpm even after being treated with IV Cardizem bolus and Hyperkalemia of 5.2 mmol/L present on admission with a UA positive for Acute Cystitis; with microscopic hematuria. He was then admitted to the PCU for ongoing care for stay that is expected to extend beyond 2 midnights. [facility] Medical History Other persistent atrial fibrillation New onset atrial flutter COVID Wears hearing aid in both ears Former smoker Coronary artery disease Peripheral vascular occlusive disease BPH (benign prostatic hyperplasia) Chronic kidney disease, stage 3 Atherosclerosis of coronary artery of [place] heart without angina pectoris Hyperlipidemia Lower extremity edema Venous insufficiency Malnutrition Delayed wound healing Osteomyelitis of ankle, left, acute Ulcer of left lower extremity with fat layer exposed Type 2 diabetes mellitus with diabetic polyneuropathy Anemia GERD (gastroesophageal reflux disease) Hypertension Home Medications ?Medication ?Instructions ?Recorded ?Last Taken ?Type insulin glargine 100 unit/mL 30 unit SQ DAILY diabetes 11/19/19 03/03/25 History subcutaneous solution multivitamin (Daily Multi-Vitamin 1 tab PO DAILY suppl ement 06/28/20 03/03/25 History tablet) sitagliptin phosphate 50 mg tablet 50 mg PO DAILY diab etes 11/02/21 03/03/25 History (Januvia) pravastatin 20 mg tablet 20 mg PO DAILY hyperlipidemi a 01/17/22 03/03/25 History cranberry 500 mg capsule 500 mg PO DAILY supplement 1 09/25/22 03/03/25 History docusate sodium 100 mg capsule 100 mg PO DAILY PRN sto ol softn 07/25/23 Unknown History (Colace) metoprolol tartrate 25 mg tablet 12.5 mg (1/2 x 25 mg) PO BID 06/18/24 03/03/25 Rx hypertension #45 TABLETS apixaban 5 mg tablet (Eliquis) 5 mg PO BID atrial fibr illation 08/04/24 03/03/25 Rx #180 TABLETS albuterol sulfate 90 mcg/actuation 2 puff inhalation Q 4H PRN 10/23/24 Unknown Rx aerosol inhaler shortness of breath or wheez ing #3 device guaifenesin 1,200 mg tablet, 1,200 mg PO Q12H #180 tab s 10/23/24 Unknown Rx extended release 12 hr umeclidinium 62.5 mcg-vilanterol 1 inh inhalation QDAY copd #60 ea 10/23/24 03/03/25 Rx 25 mcg/actuation powdr for inhalation (Anoro Ellipta) clopidogrel 75 mg tablet (Plavix) 75 mg PO DAILY atria l fibrillation 11/11/24 03/03/25 Rx #90 tabs lisinopril 2.5 mg tablet 2.5 mg PO DAILY hypertension #90 02/02/25 03/03/25 Rx TABLETS Allergy/AdvReac Type Severity Reaction Status Date / [...] did patient quit smokin years ROS ROS Narrative Review of Systems: Constitutional: Patient denies fever or chills. Eyes: Patient denies changes vision or discharge from eyes. ENT: Patient denies runny nose, sore throat or ear pain. Resp: Patient admits to dyspnea on exertion that progressed to shortness of breath at rest while changing his oxygen tank as per HPI. His chronic cough is unchanged from previous. CV: Patient denies chest pain, palpitations, heart racing or lower extremity edema. GI: Patient denies abdominal pain, nausea, vomiting, diarrhea or constipation. : Patient denies dysuria or hematuria. MSK: Patient denies arthralgias or myalgias. Skin: Patient denies rash, abscess, wounds or jaundice. Psych: Patient denies symptoms of uncontrolled depression or anxiety. Neuro: Patient denies headache, paresthesias or focal neurologic deficits. Allergy: Patient denies lip swelling, tongue swelling or urticaria. Hematology: Patient admits to easy bleeding on apixaban. Endocrinology: Patient denies polyuria, polydipsia, polyphagia or heat/cold intolerance. 14 point ROS otherwise negative except for positives noted above in HPI. Vital Signs Vital Signs Vital Signs: 03/04/25 14:58 03/04/25 15:01 03/04/25 [...] Nasal Cannula Oxygen Flow Rate (L/min) 4 Weight Weight: 161 lb 2.526 oz Body Mass Index (BMI) 25.9 Physical Exam Const alert, oriented x3, no apparent distress and average body habitus General Appearance: cooperative HEENT normocephalic, head/scalp atraumatic, hearing grossly normal bilaterally and moist oral mucous membranes Eyes PERRL, EOMs intact bilaterally and conjunctivae normal Neck no lymphadenopathy and supple Resp Resp Narrative: Diminished breath sounds throughout. Cardio Cardio Narrative: Irregular at ~117 bpm. GI normal to inspection, nondistended, normoactive bowel sounds, soft to palpation,non-tender and non-distended Extremity normal to inspection, full ROM and no clubbing, cyanosis or edema Skin Skin Narrative: Patient has evidence of rash, abscess, wounds or jaundice. Neuro oriented x3, CN's II-XII intact bilaterally, moves all extremities and no focal motor deficits Sensorium / Orientation: awake, alert, oriented to person, oriented to place andoriented to time Speech: speech normal Psych affect normal Results Medical Records Data Attestation: I reviewed the patient's medical records Lab / Micro Data Attestation: I reviewed the patient's lab results. 03/05/25 06:08 03/04/25 15:10 Labs: Laboratory Results - last 24 hr 03/04/25 15:10: WBC 7.6, RBC 3.74 L, Hgb 10.1 L, Hct 33.4 L, MCV 89.3, MCH 27.0,MCHC 30.2 L, RDW Std Deviation 54.2 H, RDW Coeff of Reggie 16.5 H, Plt Count 189, MPV 10.2, Immature Gran % (Auto) 0.700, Neut % (Auto) 78.1 H, Lymph % (Auto) 10.1 L, Hunt % (Auto) 9.1, Eos % (Auto) 1.6, Baso % (Auto) 0.4, Absolute Neuts (auto) 6.0, Absolute Lymphs (auto) 0.77 L, Nucleated RBC % 0, Sodium 138, Potassium 5.2 H, Chloride 102, Carbon Dioxide 28.6, Anion Gap 8, BUN 37 H, Creatinine 1.86 H, Estim Creat Clear Calc 28.58 L, Est GFR (MDRD) Non-Af 36 L, BUN/Creatinine Ratio 19.7, Glucose 124 H, Calcium 9.3, Troponin T High Sens 44 H, NT pro BNP II 3316 H 03/04/25 17:20: Troponin T Hi Sens 2 Hr 45 H Rhythm Strip Rhythm Strip: Atrial flutter Rate: 108 Ectopy: None Imaging Radiology Impression Chest X-Ray 03/04/25 14:59 IMPRESSION: Cardiomegaly and CHF with small right pleural effusion and bibasilar atelectasisworse at the right lung base. Reading Location: [facility] Assessment & Plan Assessment/Plan (1) CHF exacerbation: QUALIFIERS: Heart failure type: unspecified Qualified Code(s): I50.9 - Heart failure, unspecified (2) Atrial flutter with rapid ventricular response: (3) Chronic anticoagulation: (4) Elevated troponin: (5) Hyperkalemia: (6) Pleural effusion on right: (7) Acute cystitis with hematuria: (8) Atherosclerosis of coronary artery of [place] heart without angina pectoris: QUALIFIERS: Coronary Disease-Associated Artery/Lesion type: nativeartery Qualified Code(s): I25.10 - Atherosclerotic heart disease of [place] coronary artery without angina pectoris (9) Overweight (BMI 25.0-29.9): PLAN: Plan 1. AE CHF; evidenced by elevated NT pro-BNP II of 3,316 pg/mL with a corresponding CXR that revealed cardiomegaly and CHF with small right pleural effusion and bibasilar atelectasis worse at the Right lung base - Admit to PCU. Give furosemide 40 mg IV twice daily plus supplemental magnesium. Maintain metoprolol and lisinopril as before. Check NT pro-BNP II and CXR daily to follow trend. Check echocardiogram to evaluate LVEF. Serialize troponin. Finally, we will consult [facility] see this patient on rounds in the a.m. further recommendations without appreciated in advance. 2. EKG evidence of Atrial Flutter; with Rapid Ventricular Response of ~117 bpm even after being treated with IV Cardizem bolus likely precipitating #1 in the setting of chronic atrial fibrillation; with patient already on apixaban - Give digoxin 0.25 mg IV once in an effort to keep heart rate <100 bpm. If this is not effective patient will be started on IV diltiazem drip. Maintain apixaban as previous. Check TSH. 3. Elevated troponin T of 44 ng/L suspected to be due to Acute Cardiac Strain due to #1 & #2 - Serialize troponin as noted above in #1. Doubt ACS. 4. Hyperkalemia of 5.2 mmol/L present on admission compounding #1 - #3 - Patient will be treated with IV furosemide for #1. Recheck CMP in a.m. to ensure improvement. 5. UA positive for Acute Cystitis; with microscopic hematuria adding to the medical complexity of #1 - #4 - Start IV ceftriaxone and await culture & sensitivity data. Give acetaminophen prn pain or fever. 6. CAD; s/p CABG x 3 (2012) - Noted with repeat echocardiogram pending for #1. 7. Essential hypertension; on lisinopril and metoprolol BID - Resume home regimen plus give as needed IV hydralazine for systolic blood pressure greater than 160 mmHg. 8. Hyperlipidemia; on pravastatin - Continue statin and check lipid profile. 9. Overweight; with BMI of 26 this admission - Weight loss will be recommended. Check TSH. 10. Former tobacco abuse x ~30 years (quit ~10 years ago); with subsequent COPDplus lung cancer with chronic cough - Noted with no evidence of acute flare at this time. Continue nebulizers as needed. 11. Chronic hypoxic respiratory failure; on 4L NC continuously - Maintain current supplemental oxygen as before. 12. DM-2; of unknown control on insulin glargine 40U sq daily plus sitagliptin plus diabetic neuropathy - ADA/cardiac diet. FSBS q. AC/HS plus SSI. Check hemoglobin A1c to objectively evaluate quality of diabetic control. 13. PVD; with history of LLE ulcer s/p aortofemoral bypass (~2009) on clopidogrel - Resume clopidogrel as previous. 14. History of osteomyelitis of the Left ankle - Noted with no evidence of recurrence at this time. 15. Chronic venous insufficiency - Stable. 16. CKD; stage IIIb - Stable with serum creatinine of 1.86 mg/dL, BUN of 37 mg/dL and EGFR of 36 mL/min present on admission. 17. Chronic anemia - Stable with hemoglobin of 10.1 g/dL and MCV of 89.3 fL present on admission. 18. BPH; s/p TURP - Noted. 19. History of COVID-19 - Noted. 20. OA - Give acetaminophen prn pain or fever as outlined in #5. 21. DVT prophylaxis - Patient already on apixaban for #2 which will be continued. Total time: Approximately (but not less than) 75 minutes. Charges/Coding Visit Charges Inpatient E&M: 89132 Init Hosp L3 03/05/25 0622 <Electronically signed by Nicola Lindsey DO> Cosigner Signature (if applicable): CC: Dr. Nicola Lindsey, DO; Dr. Tonio Fajardo, DO~ Signed [facility] Work Phone: [phone] History and physical note [facility] Medical Records Department [address] [place] [address] H&P Exam - Hospitalist 03/04/251921 MR#: [id number] Acct: [id number] Name: PEDRO HILLMAN Rep #:[id number] : 1945 80 From: Nicola Levy DO PCP: Dr. Tonio Fajardo DO Status:ADM IN Location: [place] [address] HPI - General General Date of Admission: 03/04/25 Date of Service: 03/04/25 Chief Complaint: SOB. HPI Narrative PEDRO HILLMAN, is a 80 M with a past medical history of essential hypertension;on lisinopril and metoprolol BID, hyperlipidemia; on pravastatin, overweight; with BMI of 26 this admission, former tobacco abuse x ~30 years (quit ~10 years ago); with subsequent COPD plus lung cancer and chronic cough, chronic hypoxic respiratory failure; on 4L NC continuously, CAD; s/p CABG x 3 (2012), chronic atrial fibrillation; on apixaban, DM-2; of unknown control on insulin glargine 40U sq daily plus sitagliptin, diabetic neuropathy, PVD; with history of LLE ulcer s/p aortofemoral bypass (~2009) on clopidogrel, history of osteomyelitis of the Left ankle, chronic venous insufficiency, CKD; stage IIIb, chronic anemia, BPH; s/p TURP, history of COVID-19 and OA who [facility] ER[facility] SOB. Mr. Hillman reports his symptoms began ~3-4 days prior to admission with the gradual-onset of HAMILTON that progressed to SOB at rest when he was trying to changehis oxygen tank earlier today. He states his chronic cough is unchanged from previous and he denies lower extremity edema, chest pain, wheezing, fever or chills. He states his symptoms are similar to his previous AE CHF. His last echocardiogram was done here on August 22, 2023 which revealed LVEF ~53% with moderate mitral annular calcification and [id number] (~1-2+) mitral valve insufficiency with a pulmonary artery systolic pressure of 28 mmHg in addition to mild (1+) pulmonic valve insufficiency. In the ER he was noted to have an elevated NT pro-BNP II of 3,316 pg/mL with a corresponding CXR that revealed cardiomegaly and CHF with small right pleural effusion and bibasilar atelectasisworse at the Right lung base in addition to laboratory evidence of elevated troponin T of 44 ng/L suspected to be due to Acute Cardiac Strainplus EKG evidence of Atrial Flutter; with Rapid Ventricular Response of ~117 bpm even after being treated with IV Cardizem bolus and Hyperkalemia of 5.2 mmol/L present on admission with a UA positivefor Acute Cystitis; with microscopic hematuria. He was then admitted to the PCU for ongoing care for stay that is expected to extend beyond 2 midnights. [facility] Medical History Other persistent atrial fibrillation New onset atrial flutter COVID Wears hearing aid in both ears Former smoker Coronary artery disease Peripheral vascular occlusive disease BPH (benign prostatic hyperplasia) Chronic kidney disease, stage 3 Atherosclerosis of coronary artery of [place] heart without angina pectoris Hyperlipidemia Lower extremity edema Venous insufficiency Malnutrition Delayed wound healing Osteomyelitis of ankle, left, acute Ulcer of left lower extremity with fat layer exposed Type 2 diabetes mellitus with diabetic polyneuropathy Anemia GERD (gastroesophageal reflux disease) Hypertension Home Medications ?Medication ?Instructions ?Recorded ?Last Taken ?Type insulin glargine 100 unit/mL 30 unit SQ DAILY diabetes 11/19/19 03/03/25 History subcutaneous solution multivitamin (Daily Multi-Vitamin 1 tab PO DAILY suppl ement 06/28/20 03/03/25 History tablet) sitagliptin phosphate 50 mg tablet 50 mg PO DAILY diab etes 11/02/21 03/03/25 History (Januvia) pravastatin 20 mg tablet 20 mg PO DAILY hyperlipidemi a 01/17/22 03/03/25 History cranberry 500 mg capsule 500 mg PO DAILY supplement 1 09/25/22 03/03/25 History docusate sodium 100 mg capsule 100 mg PO DAILY PRN sto ol softn 07/25/23 Unknown History (Colace) metoprolol tartrate 25 mg tablet 12.5 mg (1/2 x 25 mg) PO BID 06/18/24 03/03/25 Rx hypertension #45 TABLETS apixaban 5 mg tablet (Eliquis) 5 mg PO BID atrial fibr illation 08/04/24 03/03/25 Rx #180 TABLETS albuterol sulfate 90 mcg/actuation 2 puff inhalation Q 4H PRN 10/23/24 Unknown Rx aerosol inhaler shortness of breath or wheez ing #3 device guaifenesin 1,200 mg tablet, 1,200 mg PO Q12H #180 tab s 10/23/24 Unknown Rx extended release 12 hr umeclidinium 62.5 mcg-vilanterol 1 inh inhalation QDAY copd #60 ea 10/23/24 03/03/25 Rx 25 mcg/actuation powdr for inhalation (Anoro Ellipta) clopidogrel 75 mg tablet (Plavix) 75 mg PO DAILY atria l fibrillation 11/11/24 03/03/25 Rx #90 tabs lisinopril 2.5 mg tablet 2.5 mg PO DAILY hypertension #90 02/02/25 03/03/25 Rx TABLETS Allergy/AdvReac Type Severity Reaction Status Date / [...] did patient quit smokin years ROS ROS Narrative Review of Systems: Constitutional: Patient denies fever or chills. Eyes: Patient denies changes vision or discharge from eyes. ENT: Patient denies runny nose, sore throat or ear pain. Resp: Patient admits to dyspnea on exertion that progressed to shortness of breath at rest while changing his oxygen tank as per HPI. His chronic cough is unchanged from previous. CV: Patient denies chest pain, palpitations, heart racing or lower extremity edema. GI: Patient denies abdominal pain, nausea, vomiting, diarrhea or constipation. : Patient denies dysuria or hematuria. MSK: Patient denies arthralgias or myalgias. Skin: Patient denies rash, abscess, wounds or jaundice. Psych: Patient denies symptoms of uncontrolled depression or anxiety. Neuro: Patient denies headache, paresthesias or focal neurologic deficits. Allergy: Patient denies lip swelling, tongue swelling or urticaria. Hematology: Patient admits to easy bleeding on apixaban. Endocrinology: Patient denies polyuria, polydipsia, polyphagia or heat/cold intolerance. 14 point ROS otherwise negative except for positives noted above in HPI. Vital Signs Vital Signs Vital Signs: 03/04/25 14:58 03/04/25 15:01 03/04/25 [...] Nasal Cannula Oxygen Flow Rate (L/min) 4 Weight Weight: 161 lb 2.526 oz Body Mass Index (BMI) 25.9 Physical Exam Const alert, oriented x3, no apparent distress and average body habitus General Appearance: cooperative HEENT normocephalic, head/scalp atraumatic, hearing grossly normal bilaterally and moist oral mucous membranes Eyes PERRL, EOMs intact bilaterally and conjunctivae normal Neck no lymphadenopathy and supple Resp Resp Narrative: Diminished breath sounds throughout. Cardio Cardio Narrative: Irregular at ~117 bpm. GI normal to inspection, nondistended, normoactive bowel sounds, soft to palpation,non-tender and non-distended Extremity normal to inspection, full ROM and no clubbing, cyanosis or edema Skin Skin Narrative: Patient has evidence of rash, abscess, wounds or jaundice. Neuro oriented x3, CN's II-XII intact bilaterally, moves all extremities and no focal motor deficits Sensorium / Orientation: awake, alert, oriented to person, oriented to place andoriented to time Speech: speech normal Psych affect normal Results Medical Records Data Attestation: I reviewed the patient's medical records Lab / Micro Data Attestation: I reviewed the patient's lab results. 03/05/25 06:08 03/04/25 15:10 Labs: Laboratory Results - last 24 hr 03/04/25 15:10: WBC 7.6, RBC 3.74 L, Hgb 10.1 L, Hct 33.4 L, MCV 89.3, MCH 27.0,MCHC 30.2 L, RDW Std Deviation 54.2 H, RDW Coeff of Reggie 16.5 H, Plt Count 189, MPV 10.2, Immature Gran % (Auto) 0.700, Neut % (Auto) 78.1 H, Lymph % (Auto) 10.1 L, Hunt % (Auto) 9.1, Eos % (Auto) 1.6, Baso % (Auto) 0.4,Absolute Neuts (auto) 6.0, Absolute Lymphs (auto) 0.77 L, Nucleated RBC % 0, Sodium 138, Potassium 5.2 H, Chloride 102, Carbon Dioxide 28.6, Anion Gap 8, BUN 37 H, Creatinine 1.86 H, Estim Creat Clear Calc 28.58 L, Est GFR (MDRD) Non-Af 36 L, BUN/Creatinine Ratio 19.7, Glucose 124 H, Calcium 9.3, Troponin T High Sens 44 H, NT pro BNP II 3316 H 03/04/25 17:20: Troponin T Hi Sens 2 Hr 45 H Rhythm Strip Rhythm Strip: Atrial flutter Rate: 108 Ectopy: None Imaging Radiology Impression Chest X-Ray 03/04/25 14:59 IMPRESSION: Cardiomegaly and CHF with small right pleural effusion and bibasilar atelectasisworse at the right lung base. Reading Location: [facility]-1 Assessment & Plan Assessment/Plan (1) CHF exacerbation: QUALIFIERS: Heart failure type: unspecified Qualified Code(s): I50.9 - Heart failure, unspecified (2) Atrial flutter with rapid ventricular response: (3) Chronic anticoagulation: (4) Elevated troponin: (5) Hyperkalemia: (6) Pleural effusion on right: (7) Acute cystitis with hematuria: (8) Atherosclerosis of coronary artery of [place] heart without angina pectoris: QUALIFIERS: Coronary Disease-Associated Artery/Lesion type: nativeartery Qualified Code(s): I25.10 - Atherosclerotic heart disease of [place] coronary artery without angina pectoris (9) Overweight (BMI 25.0-29.9): PLAN: Plan 1. AE CHF; evidenced by elevated NT pro-BNP II of 3,316 pg/mL with a corresponding CXR that revealed cardiomegaly and CHF with small right pleural effusion and bibasilar atelectasis worse at the Right lung base - Admit to PCU. Give furosemide 40 mg IV twice daily plus supplemental magnesium. Maintain metoprolol and lisinopril as before. Check NT pro-BNP II and CXR daily to follow trend. Check echocardiogram to evaluate LVEF. Serialize troponin. Finally, we will consult [facility] see this patient on rounds in the a.m. further recommendations without appreciated in advance. 2. EKG evidence of Atrial Flutter; with Rapid Ventricular Response of ~117 bpm even after being treated with IV Cardizem bolus likely precipitating #1 in the setting of chronic atrial fibrillation; with patient already on apixaban - Give digoxin 0.25 mg IV once in an effort to keep heart rate <100 bpm. If this is not effective patient will be started on IV diltiazem drip. Maintain apixaban as p revious. Check TSH. 3. Elevated troponin T of 44 ng/L suspected to be due to Acute Cardiac Strain due to #1 & #2 - Serialize troponin as noted above in #1. Doubt ACS. 4. Hyperkalemia of 5.2 mmol/L present on admission compounding #1 - #3 - Patient will be treated with IV furosemide for #1. Recheck CMP in a.m. to ensure improvement. 5. UA positive for Acute Cystitis; with microscopic hematuria adding to the medical complexity of #1 - #4 - Start IV ceftriaxone and await culture & sensitivity data. Give acetaminophen prn pain or fever. 6. CAD; s/p CABG x 3 (2012) - Noted with repeat echocardiogram pending for #1. 7. Essential hypertension; on lisinopril and metoprolol BID - Resume home regimen plus give as needed IV hydralazine for systolic blood pressure greater than 160 mmHg. 8. Hyperlipidemia; on pravastatin - Continue statin and check lipid profile. 9. Overweight; with BMI of 26 this admission - Weight loss will be recommended. Check TSH. 10. Former tobacco abuse x ~30 years (quit ~10 years ago); with subsequent COPDplus lung cancer with chronic cough - Noted with no evidence of acute flare at this time. Continue nebulizers as needed. 11. Chronic hypoxic respiratory failure; on 4L NC continuously - Maintain current supplemental oxygen as before. 12. DM-2; of unknown control on insulin glargine 40U sq daily plus sitagliptin plus diabetic neuropathy - ADA/cardiac diet. FSBS q. AC/HS plus SSI. Check hemoglobin A1c to objectively evaluate quality of diabetic control. 13. PVD; with history of LLE ulcer s/p aortofemoral bypass (~2009) on clopidogrel - Resume clopidogrel as previous. 14. History of osteomyelitis of the Left ankle - Noted with no evidence of recurrence at this time. 15. Chronic venous insufficiency - Stable. 16. CKD; stage IIIb - Stable with serum creatinine of 1.86 mg/dL, BUN of 37 mg/dL and EGFR of 36 mL/min present on admission. 17. Chronic anemia - Stable with hemoglobin of 10.1 g/dL and MCV of 89.3 fL present on admission. 18. BPH; s/p TURP - Noted. 19. History of COVID-19 - Noted. 20. OA - Give acetaminophen prn pain or fever as outlined in #5. 21. DVT prophylaxis - Patient already on apixaban for #2 which will be continued. Total time: Approximately (but not less than) 75 minutes. Charges/Coding Visit Charges Inpatient E&M: 25891 Init Hosp 03/05/25 0622 Cosigner Signature (if applicable): CC: Dr. Nicola Lindsey DO; Dr. Tonio Fajardo DO~ Signed [facility]07-17-2025 Radiology Diagnostic study note [facility] Imaging Services [address] [place] [address] Chest 1 View (Portable) MR#: [id number] Acct: [id number] Name: PEDRO HILLMAN Rep #: [id number] : 1945 M 80 From: Regi Espino MD PCP: Dr. Tonio Fajardo DO Status: ADM IN Study:Chest 1 View (Portable) Date of Exam: 03/05/25 Exam# [id number] Ordering Dr: Nicola Mukherjee DO PROCEDURE: CHEST 1 VIEW (PORTABLE) 03/05/2025 REASON FOR EXAM: AE CHF TECHNIQUE: Frontal view of the chest. COMPARISON: 03/04/2025 FINDINGS: Rotated patient. Normal heart size. Status post CABG. Moderate right effusion, adjacent airspace disease favoring atelectasis. Under aeration of the leftlung with faint left mid and lower lung zone airspace opacity, possibly edema or pneumonia. Asymmetric right apical pleural thickening. No pneumothorax. RAD/Chest 1 View (Portable) IMPRESSION: Small interval improvement in right lung base aeration. Reading Location: [place] [address] CC: Dr. Nicola Lindsey DO; Dr. Tonio Fajardo DO ~ Die Sinker Apprentice: Signed [facility]07-16-2025 Evaluation note* Diagnosis Onset Date Resolution Status Admit Date Acute cystitis with hematuria acute March 04, 2025 7:57pm Atrial flutter with rapid ventricular response acute March 04, 2025 7:57pm Chronic anticoagulation acute J 2024 7:57pm Coronary artery disease acute J shanda 2024 7:57pm Diabetes acute March 04 7:57pm Elevated troponin acute March 042024 7:57pm Hyperkalemia acute March 04, 025 7:57pm Mitral valve regurgitation acute March 04, 2025 7:57pm Other persistent atrial fibrillation acute March 04, 2025 7:57pm Overweight (BMI 25.0-29.9) acute March 04, 2025 7:57pm Peripheral arterial disease acute March 04, 2025 7:57pm Pleural effusion on right acute March 04, 2025 7:57pm Tricuspid valve regurgitation acute March 04, 2025 7:57pm Acute on chronic diastolic congestive heart failure chronic March 042024 7:57pm Atherosclerosis of coronary artery of [place] heart without angina pectoris chronic March 04, 2025 7:57pm CHF exacerbation chronic February 7:57pm Hypertension chronic March 04, 025 7:57pm [facility] Work Phone: 1(977) 984-307507-16-2025 Discharge summary Author Chris Ochoa [facility] Note Date/Time March 04, 2025 7:26 pm [facility] Medical Records Department [address] [place] [address] Emergency Department Summary 03/04/25 MR#: [id number] Acct: [id number] Name: PEDRO HILLMAN Rep #:[id number] : 1945 80 From: Chris Ochoa MD [...] stage 3 Atherosclerosis of coronary artery of [place] heart without angina pectoris Hyperlipidemia Lower extremity [...] signs. Back nontender. Movingall 4 extremities. 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 Calves nontender without edema or cords. [...] 78.1 H Lymph % (Auto) 10.1 L Hunt % (Auto) 9.1 Eos % (Auto) 1.6 [...] at the right lung base. Reading Location: [facility]-1 Chest x-ray, 2 views, AP and lateral, [...] Chronic anticoagulation Disposition Disposition: Acute Care Hospital [facility] What to do if you have Problems For any increased pain, shortness of breath, bleeding, nausea or vomiting, chestpain, or any unexpected problems, contact your Primary Care Provider. Call [facility] ([phone]) or report to the closest Emergency Room. Call 911 if necessary. 03/04/251925 <Electronically signed by Chris Ochoa MD> Cosigner Signature (if applicable): CC: Dr. Tonio Fajardo DO ~ Signed [facility] Work Phone: 1(693) 484-893607-16-2025 Discharge summary [facility] Medical Records Department [address] [place] [address] Emergency Department Summary 03/04/25 MR#: [id number] Acct: [id number] Name: PEDRO HILLMAN Rep #:[id number] : 1945 80 From: Chris Ochoa MD PCP: Dr. Tonio Fajardo DO Status:REG ER Location: ED HPI History [...] + > 35, Prior DVT or PE, Recentimmobilization, Recent surgery or Recent travel Prior similar symptoms: Yes Recent Illness/Hospitalization: No PFSH PFSH Medical History Other persistent atrial fibrillation New onset atrial flutter COVID Wears hearing aid in both ears Former smoker Coronary artery disease Peripheral vascular occlusive disease BPH (benign prostatic hyperplasia) Chronic kidney disease, stage 3 Atherosclerosis of coronary artery of [place] heart without angina pectoris Hyperlipidemia Lower extremity [...] auscultation bilaterally. No rales, rhonchi or wheezing. Equalsymmetric. Heart A- flutter rate about 108 no murmur. Chest wall ribs nontender. Abdomen soft nontender. No peritoneal signs. Back nontender. Movingall 4 extremities. 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 Calves nontender without edema or cords. [...] Rate (L/min) 4 03/04/25 16:05 03/04/25 16:16 07/16/25 17:00 Temperature 97.8 F 97.8 F Temperature [...] not an given aerosols or steroids currently. Chestx- ray, EKG and labs are pending. Differential would [...] to 84% and he seemed labored. He isdoing better currently. I think in light of [...] 78.1 H Lymph % (Auto) 10.1 L Hunt % (Auto) 9.1 Eos % (Auto) 1.6 [...] ED Physician, Read by Radiologist, Chronic Changes, Cardiomegaly,CHF and Right Effusion Diagnostic Testing: Clinical Impression(s) from Imaging Studies Chest X-Ray 03/04/25 14:59 IMPRESSION: Cardiomegaly and CHF with small right pleural effusion and bibasilar atelectasisworse at the right lung base. Reading Location: [place] [address] Chest x-ray, 2 views, AP and lateral, interpreted by myself and the radiologist shows cardiomegaly,prior sternotomy, right pleural effusion and pulmonary edema. [...] Chronic anticoagulation Disposition Disposition: Acute Care Hospital [facility] What to do if you have Problems For any increased pain, shortness of breath, bleeding, nausea or vomiting, chestpain, or any unexpected problems, contact your Primary Care Provider. Call [facility] ([phone]) or report tothe closest Emergency Room. Call 911 if necessary. 03/04/251925 Cosigner Signature (if applicable): CC: Dr. Tonio Fajardo, DO ~ Signed [facility]07-16-2025 Radiology Diagnostic study note [facility] Imaging Services [address] [place] [address] Chest PA and Lateral MR#: [id number] Acct: [id number] Name: PEDRO HILLMAN Rep #: [id number] : 1945 M 80 From: Tom Flores MD PCP: Dr. Tonio Fajardo DO Status: PRE ER Study:Chest PA and Lateral Date of Exam: 03/04/25 Exam# [id number] Ordering Dr: Camila Ochoa MD PROCEDURE: CHEST [...] at the right lung base. Reading Location: [place] [address] CC: Dr. Chris Ochoa MD; Dr. Tonio Fajardo DO ~ Die Sinker Apprentice: Signed [facility]07-16-2025 Discharge summary Author Chris Ochoa [facility] Note Date/Time March 04, 2025 7:26 pm [facility] Medical Records Department [address] [place] [address] Emergency Department Summary 03/04/25 MR#: [id number] Acct: [id number] Name: PEDRO HILLMAN Rep #:[id number] : 1945 80 From: Chris Ochoa MD PCP: Dr. Tonio Fajardo DO Status:REG ER Location: ED HPI History [...] similar symptoms: Yes Recent Illness/Hospitalization: No PFSH PFS Medical History Other persistent atrial fibrillation New onset atrial flutter COVID Wears hearing aid in both ears Former smoker Coronary artery disease Peripheral vascular occlusive disease BPH (benign prostatic hyperplasia) Chronic kidney disease, stage 3 Atherosclerosis of coronary artery of [place] heart without angina pectoris Hyperlipidemia Lower extremity [...] signs. Back nontender. Movingall 4 extremities. 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 Calves nontender without edema or cords. [...] 78.1 H Lymph % (Auto) 10.1 L Hunt % (Auto) 9.1 Eos % (Auto) 1.6 [...] at the right lung base. Reading Location: [facility] Chest x-ray, 2 views, AP and lateral, [...] Chronic anticoagulation Disposition Disposition: Acute Care Hospital [facility] What to do if you have Problems For any increased pain, shortness of breath, bleeding, nausea or vomiting, chestpain, or any unexpected problems, contact your Primary Care Provider. Call [facility] ([phone]) or report to the closest Emergency Room. Call 911 if necessary. 03/04/251925 <Electronically signed by Chris Ochoa MD> Cosigner Signature (if applicable): CC: Dr. 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 Marlon 2024 1:24pm Atrial flutter with rapid ventricular response acute March 04, 2025 7:57pm Chronic anticoagulation acute J 2024 7:57pm Elevated troponin acute March 042024 7:57pm Hyperkalemia acute March 04, 2 025 7:57pm Overweight (BMI 25.0-29.9) acute March 04, 2025 7:57pm Pleural effusion on right acute March 04, 2025 7:57pm Atherosclerosis of coronary artery of [place] heart without angina pectoris chronic March 04, 2025 7:57pm CHF exacerbation chronic February 7:57pm [facility] Work Phone: 1(621) 281-793903-13-2025 Radiology Diagnostic study note [facility] Imaging Services [address] [place] [address] CT Chest AND Abd W/ Contrast MR#: [id number] Acct: [id number] Name: PEDRO HILLMAN Rep #: [id number] : 1945 M 79 From: Tom Flores MD PCP: Dr. Tonio Fajardo, DO Status: REG CLI Study:CT Chest AND Abd W/ Contrast Date of Ex am: 10/30/24 Exam# [id number] Ordering Dr: Frantz Zamora MD PROCEDURE: CT [...] use of iterative reconstruction technique). Reading Location: [id number] CC: Dr. Russ Zamora MD; Dr. Tonio Fajardo DO ~ Die Sinker Apprentice: Signed [facility]02-28-2025 Procedure notey [facility] Pulmonary Services/Neurology [address] [place] [address] MR#: [id number] Acct: [id number] Name: PEDRO HILLMAN Rep #:[id number] : 1945 79 From: Tyrell Uriarte DO Referring Dr: Lorie Mart SPINNER FIXER SPINNER FIXER-C Status: REG CLI Location: PSN Date: Sex: M C PSN 6 Minute Walk Test 6 Minute Walk Test 6 Minute Walk Test: 6 Minute Walk Test PSN:6-Minute Walk Test Start: 10/16/24 13:24 Freq: Status: Active Protocol: RESP.6MINW Document 10/16/24 13:24 [facility] (Rec: 10/16/24 13:34 [facility] [id number]) 6 Minute Walk Test Date Performed 10/16/24 Time Performed 12:30 Height 5 ft 6 in Weight: 174 lb Weight in Pounds 174.[address]: Lorie Mart SPINNER FIXER Assistive device Walker used: Pre-test Oxygen Delivery [...] ~ Date Dictated: 10/17/24 1004 Date Transcribed: 10/17/241003 Die Sinker Apprentice: Dr. 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 Marlon h 2024 2:10pm [facility] Work Phone: 1(855) 496-567102-06-2025 Evaluation note* Diagnosis Onset Date Resolution Status Admit Date HAMILTON (dyspnea on exertion) acute September 25, 2024 12:50pm Other persistent atrial fibrillation acute September 25 12:50pm Hyperlipidemia chronic September 252024 12:50pm Hypertension september 12:50pm Peripheral vascular occlusiv e disease September 25 12:50pm Presence of aortocoronary bypass graft 2012September 25 12:50pm Hypoxia acute October 23 2:10pm COPD (chronic obstructive pulmonary disease) October 23 2:10pm 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 Tonio Fajardo, DO Status:REG RCR [...] Recorded Date Recorded By Document 04/02/23 11:24 PL [id number] 04/02/23 11:25 PL Document 04/18/23 13:24 [facility] [id number] 04/18/23 13:30 BM 04/02/23 04/18/23 11:24 13:24 - Today's Visit Information Type of service Follow-up Visit Follow-up Visit (Physician/[employer] (Physician/[employer] ) ) Arrival Mode Ambulatory,Cane Ambulatory,Cane Transfer [...] Recorded Date Recorded By Document 04/18/23 13:24 [facility] [id number] 04/18/23 13:30 [facility] 04/18/23 13:24 Wound Center Nurse 1 #9 [...] Attached -Granulation Amt Large (67-100%) -Granulation Quality [place] -Slough/Fibrin No -Necrosis Amt None Present (0 [...] Recorded Date Recorded By Document 04/02/23 11:42 [id number] 04/02/23 11:53 Document 04/18/23 14:03 [id number] 04/18/23 14:04 04/02/23 04/18/23 11:42 14:03 Wound [...] Recorded Date Recorded By Document 04/02/23 11:54 [id number] 04/02/23 11:54 Document 04/18/23 14:24 RB [id number] 04/18/23 14:25 RB 04/02/23 04/18/23 11:54 14:24 [...] mellitus with diabetic polyneuropathy QUALIFIERS: Diabetes mellitus skilled nursing insulin use: with terminal operations supervisor use Qualified Code(s): E11.42 - Type 2 diabetes mellitus with diabetic polyneuropathy; Z79.4 - USP (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 of insulin PLAN: Educated the [...] Cosigner Signature (if applicable): CC: ~ Signed [facility] Work Phone: 1(188) 794-295908-20-2023 Progress note Author Bonny Glynn [facility] April 07, 2023 10:44pm Note Date/Time April 02, 2023 12 :35pm [facility] [address] [place] [address] Progress Note - Wound Care 04/02/23 1235 MR#: [id number] Acct: [id number] Name: PEDRO HILLMAN Rep #:[id number] : 1945 78 From: Bonny garcia SPINNER FIXER SPINNER FIXER-C PCP: Dr. Tonio Fajardo, DO Status:REG RCR [...] 11:24 04/02/23 11:24 Charges/Coding Procedures Integumentary 111xxx-113xx: 99246 Mihaela subq tissue 20 sq cm/< Debridement [...] Post-Debridement Measurements and Additional Note: Post-Debridement Measurements/Treatment URBAN - Nurse 1 - General Ulcer Assessment Start: 04/02/23 11:22 Freq: Status: Active Protocol: HEMA Activity Type Activity Date Activity User E-sign Co-sign Detail Recorded Client Recorded Date Recorded By Document 04/02/23 11:24 KIM [id number] 04/02/23 11:25 PL 04/02/23 11:24 - Today's Visit Information Type of service Follow-up Visit (Physician/[employer] ) Arrival Mode Ambulatory,Cane Transfer Assistance None [...] Date Recorded By Document 04/02/23 11:42 DORA [id number] 04/02/23 11:53 DORA 04/02/23 11:42 Wound Center [...] Recorded Date Recorded By Document 04/02/23 11:54 [id number] 04/02/23 11:54 04/02/23 11:54 Wound Care Center [...] Status Ambulatory,Cane Transportation Private Auto Accompanied by DIL Medication Reconcilliation completed & Yes provided [...] that the wound center will have a guide rail cleaner, will have the patient see him for further evaluation and treatment. Follow up two weeks. Call or come in sooner if develop any questions or concerns. 04/07/230 <Electronically signed by Bonny Glynn NP [employer]NER [employer]-C> Cosigner Signature (if applicable): CC: ~ Signed [facility] Work Phone: 1(300) 253-679507-17-2023 Progress note Author Bonnyparris Glynn [facility] March 05, 2023 1:06pm Note Date/Time March 05, 2023 12:2 9pm [facility] [address] [place] [address] Progress Note - Wound Care 03/05/23 1226 MR#: [id number] Acct: [id number] Name: PEDRO HILLMAN Rep #:[id number] : 1945 78 From: Bonny garcia NP [employer]NER [employer]-C PCP: Dr. Tonio Fajardo, DO Status:REG RCR [...] Method Room Air Charges/Coding Procedures Integumentary 111xxx-113xx: 83574 Mihaela subq tissue 20 sq cm/< Debridement [...] Date Recorded By Document 02/19/23 13:34 DORA [id number] 02/19/23 13:36 DORA Document 03/05/23 11:26 JACOB [id number] 03/05/23 11:29 KW 02/19/23 03/05/23 13:34 11:26 - Today's Visit Information Type of service Follow-up Visit Follow-up Visit (Physician/[employer] (Physician/[employer] ) ) Arrival Mode Ambulatory Ambulatory,Cane Accompanied [...] Recorded Date Recorded By Document 02/19/23 13:34 [id number] 02/19/23 13:36 Document 03/05/23 11:26 KW [id number] 03/05/23 11:29 KW 02/19/23 03/05/23 13:34 11:26 Wound Center Nurse [...] Large (67-100%) Small (1-33%) -Granulation Quality [place] -Slough/Fibrin No -Necrosis Amt Small (1-33%) -Structure [...] Recorded Date Recorded By Document 02/19/23 13:37 [id number] 02/19/23 13:39 Document 03/05/23 11:37 [id number] 03/05/23 11:46 02/19/23 03/05/23 13:37 11:37 Wound [...] Date Recorded By Document 02/19/23 13:43 MW [id number] 02/19/23 13:44 MW Document 03/05/23 11:53 [facility] [id number] 03/05/23 11:55 [facility] 02/19/23 03/05/23 13:43 11:53 Wound Care Center [...] 1306 <Electronically signed by Bonny Glynn NP [employer]C> Cosigner Signature (if applicable): CC: ~ Signed [facility] Work Phone: 1(359) 509-507907-03-2023 Progress note Author Bonny Glynn [facility] February 19, 2023 2:23pm Note Date/Time February 19, 2023 2:16p m [facility] [address] [place] [address] Progress Note - Wound Care 02/19/23 1412 MR#: [id number] Acct: [id number] Name: PEDRO HILLMAN Rep #:[id number] : 1945 78 From: Bonny garcia SPINNER FIXER SPINNER FIXER-C PCP: Dr. Tonio Fajardo, DO Status:REG RCR [...] 13:34 02/19/23 13:34 Charges/Coding Procedures Integumentary 111xxx-113xx: 98067 Mihaela subq tissue 20 sq cm/< Debridement [...] Date Recorded By Document 02/19/23 13:34 DORA [id number] 02/19/23 13:36 DORA 02/19/23 13:34 WC - Today's Visit Information Type of service Follow-up Visit (Physician/[employer] ) Arrival Mode Ambulatory Patient Requires Transmission-Based [...] Date Recorded By Document 02/19/23 13:34 DORA [id number] 02/19/23 13:36 DORA 02/19/23 13:34 Wound Center Nurse 1 #9 [...] Cleansing No Lower Limb Edema Present NA WC - Nurse 2 - General Ulcer CM Notes Start: 02/19/23 13:34 Freq: Status: Active Protocol: Activity Type Activity Date Activity User E-sign Co-sign Detail Recorded Client Recorded Date Recorded By Document 02/19/23 13:37 [id number] 02/19/23 13:39 DORA 02/19/23 13:37 Wound Center Nurse 2 #9 [...] Patient Pain Free? Yes WC - Nurse 3 - General Ulcer D/C NN Start: 02/19/23 13:34 Freq: Status: Active Protocol: Activity Type Activity Date Activity User E-sign Co-sign Detail Recorded Client Recorded Date Recorded By Document 02/19/23 13:43 MW [id number] 02/19/23 13:44 MW 02/19/23 13:43 Wound Care [...] 1423 <Electronically signed by Bonny Glynn NP [employer]> Cosigner Signature (if applicable): CC: ~ Signed [facility] Work Phone: 1(274) 971-362006-19-2023 Progress note [facility] February 05, 2023 2:37pm Note Date/Time February 05, 2023 1:59 pm [facility] [address] [place] [address] Progress Note - Wound Care 02/05/23 1359 MR#: [id number] Acct: [id number] Name: PEDRO HILLMAN Nora Rep #:[id number] : 1945 78 From: Bonny Gillis TATIANNA SPINNER FIXER-C PCP: Dr. Tonio Fajardo, DO Status:REG RCR Location: History of Present Illness Date of Service: 02/05/23 Chief Complaint: right medial foot ulcer History of Wound: This 78-year-old male returns to the wound healing clinic for reoccurrence of a right medial foot ulcer. Wound care has been Moistened Cass covered with [place] SAP dressing. Patient diabetic neuropathic. Patient dealing [...] Method Room Air Charges/Coding Procedures Integumentary 111xxx-113xx: 60983 Mihaela subq tissue 20 sq cm/< Debridement [...] Date Recorded By Document 01/22/23 13:45 DL [id number] 01/22/23 13:48 DL Document 02/05/23 13:10 [facility] [id number] 02/05/23 13:15 BMF 01/22/23 02/05/23 13:45 13:10 - Today's Visit Information Type of service Follow-up Visit Follow-up Visit (Physician/[employer] (Physician/[employer] ) ) Arrival Mode Ambulatory Ambulatory,Cane Transfer [...] Date Recorded By Document 01/22/23 13:45 DL [id number] 01/22/23 13:48 DL Document 02/05/23 13:10 [facility] [id number] 02/05/23 13:15 [facility] 01/22/23 02/05/23 13:45 13:10 Wound Center Nurse [...] Present (0 Large (67-100%) %) -Granulation Quality [place] -Slough/Fibrin Yes -Necrosis Amt Small (1-33%) Small [...] Date Recorded By Document 01/22/23 14:22 DORA [id number] 01/22/23 14:23 DORA 01/22/23 14:22 Wound Center [...] Date Recorded By Document 01/22/23 14:30 DL [id number] 01/22/23 14:31 DL Document 02/05/23 13:49 BMF [id number] 02/05/23 13:49 BM 01/22/23 02/05/23 14:30 13:49 Wound Care Center [...] if develop any questions or concerns. 02/05/23 1367 <Electronically signed by Bonny Glynn NP [employer]-C> Cosigner Signature (if applicable): CC: ~ Signed [facility] Work Phone: 1(408) 320-381006-05-2023 Progress note Author Bonnyparris Glynn [facility] January 22, 2023 3:47pm Note Date/Time January 22, 2023 3:31p m [facility] [address] [place] [address] Progress Note - Wound Care 01/22/23 1529 MR#: [id number] Acct: [id number] Name: KADYPEDRO Nora Rep #:[id number] : 1945 78 From: Bonny garcia NP [employer]NER FIXER-C PCP: Dr. Tonio Fajardo, DO Status:REG RCR Location: History of Present Illness Date of Service: 01/22/23 Chief Complaint: right medial foot ulcer History of Wound: This 78-year-old male returns to the wound healing clinic for reoccurrence of a right medial foot ulcer. Wound care has been Moistened Cass covered with [place] SAP dressing. Patient diabetic neuropathic. Patient dealing [...] 13:45 01/22/23 13:45 Charges/Coding Procedures Integumentary 111xxx-113xx: 43975 Mihaela subq tissue 20 sq cm/< Debridement [...] Post-Debridement Measurements and Additional Note: Post-Debridement Measurements/Treatment URBAN - Nurse 1 - General Ulcer Assessment Start: 01/22/23 13:42 Freq: Status: Active Protocol: HEMA Activity Type Activity Date Activity User E-sign Co-sign Detail Recorded Client Recorded Date Recorded By Document 01/22/23 13:45 DL [id number] 01/22/23 13:48 DL 01/22/23 13:45 URBAN - Today's Visit Information Type of service Follow-up Visit (Physician/[employer] ) Arrival Mode Ambulatory Transfer Assistance None [...] Date Recorded By Document 01/22/23 13:45 DL [id number] 01/22/23 13:48 DL 01/22/23 13:45 Wound Center [...] Date Recorded By Document 01/22/23 14:22 DORA [id number] 01/22/23 14:23 01/22/23 14:22 Wound Center Nurse [...] Recorded Date Recorded By Document 01/22/23 14:30 [id number] 01/22/23 14:31 DL 01/22/23 14:30 Wound Care [...] if develop any questions or concerns. 01/22/23 2872 <Electronically signed by Bonny Glynn NP [employer]-C> Cosigner Signature (if applicable): CC: ~ Signed [facility] Work Phone: 1(925) 544-889105-22-2023 Progress note Author Bonny Glynn [facility] January 08, 2023 2:17pm Note Date/Time January 08, 2023 2:10p m [facility] [address] [place] [address] Progress Note - Wound Care 01/08/23 1407 MR#: [id number] Acct: [id number] Name: PEDRO HILLMAN Rep #:[id number] : 1945 77 From: Bonny garcia SPINNER FIXER SPINNER FIXER-C PCP: Dr. Tonio Fajardo, DO Status:REG RCR Location: History of Present Illness Date of Service: 01/08/23 Chief Complaint: right medial foot ulcer History of Wound: This 77-year-old male returns to the wound healing clinic for reoccurrence of a right medial foot ulcer. Wound care has been Moistened Cass covered with [place] SAP dressing. Patient diabetic neuropathic. Patient dealing [...] 14:53 01/08/23 13:37 Charges/Coding Procedures Integumentary 111xxx-113xx: 59384 Mihaela subq tissue 20 sq cm/< Debridement [...] Date Recorded By Document 12/18/22 13:20 PL [id number] 12/18/22 13:27 PL Document 12/25/22 14:53 [id number] 12/25/22 14:54 Document 01/08/23 13:37 AK [id number] 01/08/23 13:39 AK 12/18/22 12/25/22 01/08/23 13:20 14:53 13:37 - Today's Visit Information Type of service Follow-up Visit Follow-up Visit Follow-up Visit (Physician/[employer] (Physician/[employer] (Physician/[employer] ) ) ) Arrival Mode Ambulatory Ambulatory [...] Date Recorded By Document 12/18/22 13:20 PL [id number] 12/18/22 13:27 PL Document 12/25/22 14:53 [id number] 12/25/22 14:54 Document 01/08/23 13:37 MS [id number] 01/08/23 13:39 AK 12/18/22 12/25/22 01/08/23 13:20 [...] (34-66%) Small (1-33%) Medium (34-66%) -Granulation Quality [place] Pale -Slough/Fibrin No Yes Yes -Necrosis Amt [...] Recorded Date Recorded By Document 12/18/22 13:51 [id number] 12/18/22 13:53 Document 12/25/22 15:00 [id number] 12/25/22 15:10 Document 01/08/23 14:01 [id number] 01/08/23 14:02 12/18/22 12/25/22 01/08/23 13:51 15:00 [...] Date Recorded By Document 12/18/22 14:07 PL [id number] 12/18/22 14:07 PL Document 12/25/22 15:20 DL [id number] 12/25/22 15:20 DL 12/18/22 12/25/22 14:07 15:20 [...] if develop any questions or concerns. 01/08/23 2429 <Electronically signed by Bonny Glynn NP [employer]INNER FIXER-C> Cosigner Signature (if applicable): CC: ~ Signed [facility] Work Phone: 1(225) 603-182705-14-[address] Ochoa [facility] December 31, 2022 12:58am Note Date/Time December 30, 2022 11:08 pm [facility] Medical Records Department [address] [place] [address] Emergency Department Summary 12/30/22 MR#: [id number] Acct: [id number] Name: KADYPEDRO Nora Rep #:[id number] : 1945 77 From: Chris Ochoa MD [...] History Anemia Atherosclerosis of coronary artery of [place] heart without angina pectoris BPH (benign prostatic [...] extremities. Nontender. No edema. No cellulitis. 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 Normal dorsi plantarflexion. Neurologically is awake [...] 83.3 H Lymph % (Auto) 6.4 L Hunt % (Auto) 9.1 Eos % (Auto) 0.2 [...] Color Urine Clarity Urine pH Ur Specific [place] Urine Protein Urine Glucose (UA) Urine Ketones Urine Occult Blood Urine Nitrite Urine Bilirubin Urine Urobilinogen Ur Leukocyte Esterase Urine RBC Urine WBC Ur Squamous Epith Cells Urine Bacteria Urine Mucus 12/30/22 12/30/22 22:50 23:59 WBC RBC Hgb Hct MCV MCH MCHC RDW Std Deviation RDW Coeff of Reggie Plt Count MPV Immature Gran % (Auto) Neut % (Auto) Lymph % (Auto) Hunt % (Auto) Eos % (Auto) Baso % [...] Clarity Clear Urine pH 7.0 Ur Specific [place] 1.005 Urine Protein 100 H Urine Glucose [...] Signed: Kash Nevarez MD at 0:41 EDT , Chest x-ray, portable, single view shows [...] Primary Care Provider: Tonio Fajardo Referrals: Tonio Fajardo, DO [Primary Care Provider] - 3-5 Days [...] your Primary Care Provider. Call [facility] ([phone]) or report to the closest Emergency Room. Call 911 if necessary. 12/31/22 0058 <Electronically signed by Chris Ochoa MD> Cosigner Signature (if applicable): CC: Dr. Tonio Fajardo, DO ~ Signed [facility] Work Phone: 1(313) 817-432005-08-2023 Progress note Author Bonny Glynn [facility] December 25, 2022 3:36pm Note Date/Time December 25, 2022 3:36pm [facility] [address] [place] [address] Progress Note - Wound Care 12/25/22 1531 MR#: [id number] Acct: [id number] Name: PEDRO HILLMAN Rep #:[id number] : 1945 77 From: Bonny Gillis SPINNER FIXER SPINNER FIXER-C PCP: Dr. Tonio Fajardo DO Status:REG RCR Location: History of Present Illness Date of Service: 12/25/22 Chief Complaint: right medial foot ulcer History of Wound: This 77-year-old male returns to the wound healing clinic for reoccurrence of a right medial foot ulcer. Wound care has been Moistened Cass covered with [place] SAP dressing. Patient diabetic neuropathic. Patient dealing [...] 14:53 12/25/22 14:53 Charges/Coding Procedures Integumentary 111xxx-113xx: 39549 Mihaela subq tissue 20 sq cm/< Debridement [...] Date Recorded By Document 12/18/22 13:20 PL [id number] 12/18/22 13:27 PL Document 12/25/22 14:53 [id number] 12/25/22 14:54 12/18/22 12/25/22 13:20 14:53 - Today's Visit Information Type of service Follow-up Visit Follow-up Visit (Physician/[employer] (Physician/[employer] ) ) Arrival Mode Ambulatory Ambulatory Transfer [...] Date Recorded By Document 12/18/22 13:20 PL [id number] 12/18/22 13:27 PL Document 12/25/22 14:53 [id number] 12/25/22 14:54 12/18/22 12/25/22 13:20 14:53 Wound [...] Amt Medium (34-66%) Small (1-33%) -Granulation Quality [place] -Slough/Fibrin No Yes -Necrosis Amt Medium (34-66%) [...] Recorded Date Recorded By Document 12/18/22 13:51 [id number] 12/18/22 13:53 Document 12/25/22 15:00 [id number] 12/25/22 15:10 JF 12/18/22 12/25/22 13:51 15:00 Wound Center Nurse [...] Date Recorded By Document 12/18/22 14:07 PL [id number] 12/18/22 14:07 PL Document 12/25/22 15:20 DL [id number] 12/25/22 15:20 DL 12/18/22 12/25/22 14:07 15:20 [...] 1536 <Electronically signed by Bonny Glynn NP SPINNER FIXER-C> Cosigner Signature (if applicable): CC: ~ Signed [facility] Work Phone: 1(117) 958-250205-01-2023 Progress note Author Bonny Glynn [facility] December 18, 2022 2:23pm Note Date/Time December 18, 2022 2:23pm [facility] [address] [place] [address] Progress Note - Wound Care 12/18/22 1419 MR#: [id number] Acct: [id number] Name: PEDRO HILLMAN Rep #:[id number] : 1945 77 From: Bonny garcia NP SPINNER FIXER-C PCP: Dr. Tonio Fajardo, DO Status:REG RCR Location: History of Present Illness Date of Service: 12/18/22 Chief Complaint: right medial foot ulcer History of Wound: This 77-year-old male returns to the wound healing clinic for reoccurrence of a right medial foot ulcer. Wound care has been Moistened Cass covered with [place] SAP dressing. Patient diabetic neuropathic. Patient dealing [...] 13:20 12/18/22 13:20 Charges/Coding Procedures Integumentary 111xxx-113xx: 23743 Mihaela subq tissue 20 sq cm/< Debridement [...] Date Recorded By Document 12/18/22 13:20 KIM [id number] 12/18/22 13:27 PL 12/18/22 13:20 WC - Today's Visit Information Type of service Follow-up Visit (Physician/[employer] ) Arrival Mode Ambulatory Transfer Assistance None [...] Date Recorded By Document 12/18/22 13:20 KIM [id number] 12/18/22 13:27 PL 12/18/22 13:20 Wound Center Nurse 1 #9 Right Inferior Hallux -Combined with other wound No -Current Size (cm) - Length 0.1 -Current Size (cm) - Width 0.1 -Current Size (cm) - Depth 0.1 -Total Square Cm 0.01 -Photo Taken No -Epithelialization Medium 34-66% -Tunneling No -Undermining/Tunneling No -Circular Undermining No -Exudate Amt Small -Exudate Type Serosanguineous -Granulation Amt Medium (34-66%) -Granulation Quality [place] -Slough/Fibrin No -Necrosis Amt Medium (34-66%) -Necrotic [...] Date Recorded By Document 12/18/22 13:51 DORA [id number] 12/18/22 13:53 DORA 12/18/22 13:51 Wound Center [...] Patient Pain Free? Yes WC - Nurse 3 - General Ulcer D/C NN Start: 12/18/22 13:18 Freq: Status: Active Protocol: Activity Type Activity Date Activity User E-sign Co-sign Detail Recorded Client Recorded Date Recorded By Document 12/18/22 14:07 PL [id number] 12/18/22 14:07 PL 12/18/22 14:07 Wound Care Center Nurse 3 [...] 1423 <Electronically signed by Bonny Glynn NP SPINNER FIXER-C> Cosigner Signature (if applicable): CC: ~ Signed [facility] Work Phone: 1(465) 348-314704-27-2023 Progress note Author Bonny Glynn [facility] December 14, 2022 2:56pm Note Date/Time December 11, 2022 3:2 7pm [facility] [address] [place] [address] Progress Note - Wound Care 12/11/22 1527 MR#: [id number] Acct: [id number] Name: PEDRO HILLMAN Rep #:[id number] : 1945 77 From: Bonny garcia NP SPINNER FIXER-C PCP: Dr. Tonio Fajardo, DO Status:REG RCR Location: History of Present Illness Date of Service: 12/11/22 Chief Complaint: right medial foot ulcer History of Wound: This 77-year-old male returns to the wound healing clinic for reoccurrence of a right medial foot ulcer. Wound care has been Moistened Cass covered with [place] SAP dressing. Patient diabetic neuropathic. Patient dealing [...] Method Room Air Charges/Coding Procedures Integumentary 111xxx-113xx: 22156 Mihaela subq tissue 20 sq cm/< Debridement [...] Date Recorded By Document 11/20/22 14:43 DL [id number] 11/20/22 14:49 DL Document 11/27/22 14:25 [facility] [id number] 11/27/22 14:27 [facility] Document 12/06/22 11:35 DL [id number] 12/06/22 11:39 DL Document 12/11/22 13:12 [facility] [id number] 12/11/22 13:21 [facility] 11/20/22 11/27/22 12/06/22 14:43 14:25 11:35 - Today's Visit Information Type of service Follow-up Visit Follow-up Visit (Physician/[employer] (Physician/[employer] ) ) Arrival Mode Ambulatory,Cane Ambulatory Transfer [...] Pain Free? Yes Yes Yes 12/11/22 13:12 WC - Today's Visit Information Type of service Follow-up Visit (Physician/[employer] ) Arrival Mode Ambulatory,Cane Transfer Assistance None [...] Date Recorded By Document 11/20/22 14:43 DL [id number] 11/20/22 14:49 DL Document 11/27/22 14:25 BMF [id number] 11/27/22 14:27 BMF Document 12/06/22 11:35 DL [id number] 12/06/22 11:39 DL Document 12/11/22 13:12 BMF [id number] 12/11/22 13:21 BMF 11/20/22 11/27/22 12/06/22 14:43 14:25 11:35 Wound [...] Amt Small (1-33%) Small (1-33%) -Granulation Quality [place] Pale -Slough/Fibrin -Necrosis Amt Small (1-33%) Small [...] Recorded Date Recorded By Document 11/20/22 15:00 DORA [id number] 11/20/22 15:09 JF Edit Result 11/20/22 15:00 JF (1) [id number] 11/20/22 15:18 JF Edit Result 11/20/22 15:00 JF (2) [id number] 11/20/22 15:20 JF Document 11/27/22 14:50 [id number] 11/27/22 15:02 Document 12/06/22 11:46 [id number] 12/06/22 11:57 Document 12/11/22 13:30 [id number] 12/11/22 13:33 (1) #9 Right Inferior Hallux [...] => 08/20/27 - Product Lot Number => [id number] - Percent Used => 100 - Lot number of Saline Used => [id number] 11/20/22 11/27/22 12/06/22 15:00 14:50 11:46 Wound [...] Date 08/20/27 08/20/27 09/20/27 -Product Lot Number [id number] -Percent Used 100 100 100 -Lot number of Saline Used [id number] -Bleeding Controlled with Pressure Pressure Pressure -Treatment [...] Date Recorded By Document 11/20/22 15:35 DL [id number] 11/20/22 15:36 DL Document 11/27/22 15:02 JF [id number] 11/27/22 15:03 JF Document 12/06/22 11:57 JF [id number] 12/06/22 11:58 JF Document 12/11/22 13:57 DL [id number] 12/11/22 13:58 DL 11/20/22 11/27/22 12/06/22 15:35 [...] if develop any questions or concerns. 12/14/22 3907 <Electronically signed by Bonny Glynn NP SPINNER FIXER-C> Cosigner Signature (if applicable): CC: ~ Signed [facility] Work Phone: 1(464) 750-512904-19-2023 Progress note Author Bonny Glynn [facility] December 06, 2022 12:09pm Note Date/Time December 06, 2022 12: 09pm [facility] [address] [place] [address] Progress Note - Wound Care 12/06/22 1205 MR#: [id number] Acct: [id number] Name: PEDRO HILLMAN Rep #:[id number] : 1945 77 From: Bonny Gillis SPINNER FIXER SPINNER FIXER-C PCP: Dr. Tonio Fajardo, DO Status:REG RCR Location: History of Present Illness Date of Service: 12/06/22 Chief Complaint: right medial foot ulcer History of Wound: This 77-year-old male returns to the wound healing clinic for reoccurrence of a right medial foot ulcer. Wound care has been Moistened Cass covered with Gal[place] SAP dressing. Patient diabetic neuropathic. Patient dealing [...] 11:35 12/06/22 11:35 Charges/Coding Procedures Integumentary 150xxx-152xx: 71222 Skin sub graft face/nk/hf/g Debridement Note Debridement [...] Date Recorded By Document 11/20/22 14:43 DL [id number] 11/20/22 14:49 DL Document 11/27/22 14:25 BMF [id number] 11/27/22 14:27 BMF Document 12/06/22 11:35 DL [id number] 12/06/22 11:39 DL 11/20/22 11/27/22 12/06/22 14:43 14:25 11:35 - Today's Visit Information Type of service Follow-up Visit Follow-up Visit (Physician/[employer] (Physician/[employer] ) ) Arrival Mode Ambulatory,Cane Ambulatory Transfer [...] Date Recorded By Document 11/20/22 14:43 DL [id number] 11/20/22 14:49 DL Document 11/27/22 14:25 [facility] [id number] 11/27/22 14:27 BMF Document 12/06/22 11:35 DL [id number] 12/06/22 11:39 DL 11/20/22 11/27/22 12/06/22 14:43 [...] Amt Small (1-33%) Small (1-33%) -Granulation Quality [place] Pale -Necrosis Amt Small (1-33%) Small (1-33%) -Necrotic Tissue Type Adherent Slough Adherent Slough -Structure Exposed N/A N/A -Texture (Anna-wound Skin Appearance) Callus,Scarring Assessed, Friable, Scarring Scarring -Moisture (Anan-wound Skin Appearance) No Abnormality Assessed,Dry/ Dry/Scaly Scaly [...] Recorded Date Recorded By Document 11/20/22 15:00 [id number] 11/20/22 15:09 JF Edit Result 11/20/22 15:00 JF (1) [id number] 11/20/22 15:18 JF Edit Result 11/20/22 15:00 JF (2) [id number] 11/20/22 15:20 Document 11/27/22 14:50 [id number] 11/27/22 15:02 JF Document 12/06/22 11:46 [id number] 12/06/22 11:57 JF (1) #9 Right Inferior Hallux - [...] => 08/20/27 - Product Lot Number => [id number] - Percent Used => 100 - Lot number of Saline Used => [id number] 11/20/22 11/27/22 12/06/22 15:00 14:50 11:46 Wound [...] Date 08/20/27 08/20/27 09/20/27 -Product Lot Number [id number] 015 -Percent Used 100 100 100 -Lot number of Saline Used [id number] -Bleeding Controlled with Pressure Pressure Pressure -Treatment [...] Date Recorded By Document 11/20/22 15:35 DL [id number] 11/20/22 15:36 DL Document 11/27/22 15:02 [id number] 11/27/22 15:03 JF Document 12/06/22 11:57 [id number] 12/06/22 11:58 11/20/22 11/27/22 12/06/22 15:35 15:02 [...] if develop any questions or concerns. 12/06/22 1209 <Electronically signed by Bonny Glynn NP [employer]> Cosigner Signature (if applicable): CC: ~ Signed [facility] Work Phone: 1(929) 704-919304-11-2023 Progress note Author Bonnyparris Glynn [facility] November 28, 2022 5:24pm Note Date/Time November 27, 2022 3:1 4pm [facility] [address] [place] [address] Progress Note - Wound Care 11/27/22 1513 MR#: [id number] Acct: [id number] Name: PEDRO HILLMAN Rep #:[id number] : 1945 77 From: Bonny garcia NP [employer] PCP: Dr. Tonio Fajardo, DO Status:REG RCR Location: History of Present Illness Date of Service: 11/27/22 Chief Complaint: right medial foot ulcer History of Wound: This 77-year-old male returns to the wound healing clinic for reoccurrence of a right medial foot ulcer. Wound care has been Moistened Cass covered with Galeton SAP dressing. Patient diabetic neuropathic. Patient dealing [...] 14:43 11/27/22 14:25 Charges/Coding Procedures Integumentary 150xxx-152xx: 66120 Skin sub graft face/nk/hf/g Debridement Note Debridement [...] Date Recorded By Document 11/20/22 14:43 DL [id number] 11/20/22 14:49 DL Document 11/27/22 14:25 [facility] [id number] 11/27/22 14:27 BM 11/20/22 11/27/22 14:43 14:25 - Today's Visit Information Type of service Follow-up Visit Follow-up Visit (Physician/[employer] (Physician/[employer] ) ) Arrival Mode Ambulatory,Cane Ambulatory Transfer [...] Recorded Date Recorded By Document 11/20/22 14:43 [id number] 11/20/22 14:49 DL Document 11/27/22 14:25 [facility] [id number] 11/27/22 14:27 BM 11/20/22 11/27/22 14:43 14:25 Wound Center Nurse [...] Thickened -Granulation Amt Small (1-33%) -Granulation Quality [place] -Necrosis Amt Small (1-33%) -Necrotic Tissue Type [...] Recorded Date Recorded By Document 11/20/22 15:00 [id number] 11/20/22 15:09 Edit Result 11/20/22 15:00 JF (1) [id number] 11/20/22 15:18 JF Edit Result 11/20/22 15:00 JF (2) [id number] 11/20/22 15:20 JF Document 11/27/22 14:50 [id number] 11/27/22 15:02 JF (1) #9 Right Inferior [...] => 08/20/27 - Product Lot Number => [id number] - Percent Used => 100 - Lot number of Saline Used => [id number] 11/20/22 11/27/22 15:00 14:50 Wound Center Nurse [...] -Expiration Date 08/20/27 08/20/27 -Product Lot Number [id number] -Percent Used 100 100 -Lot number of Saline Used [id number] -Bleeding Controlled with Pressure Pressure -Treatment Response [...] Date Recorded By Document 11/20/22 15:35 DL [id number] 11/20/22 15:36 DL Document 11/27/22 15:02 DORA [id number] 11/27/22 15:03 JF 11/20/22 11/27/22 15:35 15:02 [...] sooner if develop any questions or concerns. 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 Tonio Fajardo, DO Status:REG RCR Location: History of Present Illness Date of Service: 11/20/22 Chief Complaint: right medial foot ulcer History of Wound: This 77-year-old male returns to the wound healing clinic for reoccurrence of a right medial foot ulcer. Wound care has been Moistened Cass covered with Galeton SAP dressing. Patient diabetic neuropathic. Patient dealing [...] 14:43 11/20/22 14:43 Charges/Coding Procedures Integumentary 150xxx-152xx: 25664 Skin sub graft face/nk/hf/g Debridement Note Debridement [...] Date Recorded By Document 11/20/22 14:43 DL [id number] 11/20/22 14:49 DL 11/20/22 14:43 - Today's Visit Information Type of service Follow-up Visit (Physician/[employer] ) Arrival Mode Ambulatory,Cane Transfer Assistance None [...] Date Recorded By Document 11/20/22 14:43 DL [id number] 11/20/22 14:49 DL 11/20/22 14:43 Wound Center Nurse 1 #9 Right Inferior Hallux -Current Size (cm) - Length 0.2 -Current Size (cm) - Width 0.3 -Current Size (cm) - Depth 0.2 -Total Square Cm 0.06 -Photo Taken No -Exudate Amt Small -Exudate Type Serosanguineous -Wound Margin Thickened -Granulation Amt Small (1-33%) -Granulation Quality [place] -Necrosis Amt Small (1-33%) -Necrotic Tissue Type [...] Date Recorded By Document 11/20/22 15:00 JF [id number] 11/20/22 15:09 JF Edit Result 11/20/22 15:00 JF (1) [id number] 11/20/22 15:18 JF Edit Result 11/20/22 15:00 JF (2) [id number] 11/20/22 15:20 JF (1) #9 Right Inferior [...] => 08/20/27 - Product Lot Number => [id number] - Percent Used => 100 - Lot number of Saline Used => [id number] 11/20/22 15:00 Wound Center Nurse 2 -Time [...] Disc -Expiration Date 08/20/27 -Product Lot Number [id number] -Percent Used 100 -Lot number of Saline Used [id number] -Bleeding Controlled with Pressure -Treatment Response Procedure Tolerated Well -Offloading Yes -Type of Offloading Surgical Shoe -Debridement - Subq, 1st 20sq cm No -Apply Skin Sub - 1st 25 sq cm - Feet 1 -Epifix 18mm Disc 3 Pain Scale: 0-10 Numeric Is Patient Pain Free? Yes WC - Nurse 3 - General Ulcer D/C NN Start: 11/20/22 14:43 Freq: Status: Active Protocol: Activity Type Activity Date Activity User E-sign Co-sign Detail Recorded Client Recorded Date Recorded By Document 11/20/22 15:35 DL [id number] 11/20/22 15:36 DL 11/20/22 15:35 Wound Care [...] on this portion of his foot. Vascular:? 5/2/22 - Right EULALIA - 1.15, Left EULALIA [...] 11/26/222228 <Electronically signed by Bonny Glynn NP [employer]> Cosigner Signature (if applicable): CC: ~ Signed [facility] Work Phone: 1(304) 875-283702-21-2023 Progress note Author Bonny Glynn [facility] October 10, 2022 3:29pm Note Date/Time October 09, 2022 4:10pm [facility] [address] [place] [address] Progress Note - Wound Care 10/09/22 1609 MR#: [id number] Acct: [id number] Name: PEDRO HILLMAN Rep #:[id number] : 1945 77 From: Bonny garcia NP [employer] PCP: Dr. Tonio Fajardo, DO Status:REG RCR Location: History of Present Illness Date of Service: 10/09/22 Chief Complaint: right foot ulcer History of Wound: This 77-year-old male returns to the wound healing clinic for reoccurrence of a right medial foot ulcer. Wound care has been Moistened Cass covered with Gal[place] SAP dressing. Patient diabetic neuropathic. Patient dealing [...] Method Room Air Charges/Coding Procedures Integumentary 150xxx-152xx: 82114 Skin sub graft face/nk/hf/g Debridement Note Debridement [...] Recorded Date Recorded By Document 09/25/22 14:25 [facility] [id number] 09/25/22 14:32 BMF Document 10/02/22 13:28 ML [id number] 10/02/22 13:32 ML Document 10/09/22 12:59 DL [id number] 10/09/22 13:04 DL 09/25/22 10/02/22 10/09/22 14:25 13:28 12:59 - Today's Visit Information Type of service Follow-up Visit Follow-up Visit Follow-up Visit (Physician/[employer] (Physician/[employer] (Physician/[employer] ) ) ) Arrival Mode Ambulatory,Cane Cane [...] Date Recorded By Document 09/25/22 14:25 BMF [id number] 09/25/22 14:32 BMF Document 10/02/22 13:28 ML [id number] 10/02/22 13:32 ML Document 10/09/22 12:59 DL [id number] 10/09/22 13:04 DL 09/25/22 10/02/22 10/09/22 14:25 [...] (0 Large (67-100%) %) -Granulation Quality [place] -Slough/Fibrin Yes Yes -Necrosis Amt Small (1-33%) [...] Recorded Date Recorded By Document 09/25/22 14:42 [id number] 09/25/22 14:51 Document 10/02/22 14:14 [id number] 10/02/22 14:17 Document 10/09/22 13:17 [id number] 10/09/22 13:26 09/25/22 10/02/2223 14:42 14:14 13:17 Wound Center Nurse 2 [...] Date 06/20/27 05/20/27 06/20/27 -Product Lot Number [id number] 026 -Percent Used 100 100 100 -Lot number of Saline Used [id number] -Bleeding Controlled with Pressure Pressure Pressure -Treatment [...] Recorded Date Recorded By Document 09/25/22 14:52 [id number] 09/25/22 14:53 Document 10/02/22 14:18 [id number] 10/02/22 14:19 09/25/22 10/02/22 14:52 14:18 Wound [...] positive for Staphylococcus epidermidis and 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 I spoke with his PCP, Dr Fajardo, who was made aware of the results and he said he would treat him from these results. Follow up one week. 10/10/22 1529 <Electronically signed by Bonny Glynn NP [employer]-C> Cosigner Signature (if applicable): CC: ~ Signed [facility] Work Phone: 1(394) 351-626002-14-2023 Progress note Author Bonny [facility] October 03, 2022 4:51pm Note Date/Time September 26, 2022 1 :17pm [facility] [address] [place] [address] Progress Note - Wound Care 09/25/22 1501 MR#: [id number] Acct: [id number] Name: PEDRO HILLMAN Rep #:[id number] : 1945 77 From: Bonny garcia NP [employer]-C PCP: Dr. Tonio Fajardo, DO Status:REG RCR Location: ADDENDUM by [employer]-C Bonny Glynn on 10/03/22 at 1651 [place]end[place] [address] Procedures Integumentary 150xxx-152xx: 14455 Skin sub graft face/nk/hf/g 10/03/22 1651<Electronically signed by Bonny Glynn NP [employer]> Cosigner Signature (if applicable): cc: ~* Signed History of Present Illness Date of Service: 09/25/22 Chief Complaint: right foot ulcer History of Wound: This 77-year-old male returns to the wound healing clinic for reoccurrence of a right medial foot ulcer. Wound care has been Moistened Cass covered with Gal[place] SAP dressing. Patient diabetic neuropathic. Patient dealing [...] Method Room Air Charges/Coding Procedures Integumentary 150xxx-152xx: 99967 Skin sub graft trnk/arm/leg Debridement Note Debridement [...] Recorded Date Recorded By Document 09/25/22 14:25 [facility] [id number] 09/25/22 14:32 [facility] 09/25/22 14:25 WC - Today's Visit Information Type of service Follow-up Visit (Physician/[employer] ) Arrival Mode Ambulatory,Cane Transfer Assistance None [...] 0-10 Numeric Is Patient Pain Free? Yes [facility] Nurse 1 - General Ulcer Measurement Start: 09/25/22 14:25 Freq: Status: Active Protocol: Activity Type Activity Date Activity User E-sign Co-sign Detail Recorded Client Recorded Date Recorded By Document 09/25/22 14:25 [facility] [id number] 09/25/22 14:32 [facility] 09/25/22 14:25 Wound Center Nurse 1 #9 [...] Recorded Date Recorded By Document 09/25/22 14:42 [id number] 09/25/22 14:51 09/25/22 14:42 Wound Center Nurse 2 -Time [...] Disc -Expiration Date 06/20/27 -Product Lot Number [id number] -Percent Used 100 -Lot number of Saline Used [id number] -Bleeding Controlled with Pressure -Treatment Response Procedure [...] Recorded Date Recorded By Document 09/25/22 14:52 [id number] 09/25/22 14:53 09/25/22 14:52 Wound Care Center Nurse 3 [...] 1317 <Electronically signed by Bonny Glynn NP [employer]-C> Cosigner Signature (if applicable): CC: ~ Signed [facility] Work Phone: 1(129) 150-891902-14-2023 Progress note Author Bonny Glynn [facility] October 03, 2022 4:49pm Note Date/Time October 02, 2022 2:57pm [facility] [address] [place] [address] Progress Note - Wound Care 10/02/22 1457 MR#: [id number] Acct: [id number] Name: PEDRO HILLMAN Rep #:[id number] : 1945 77 From: Bonny garcia NP [employer]-C PCP: Dr. Tonio Fajardo, DO Status:REG RCR Location: History of Present Illness Date of Service: 10/02/22 Chief Complaint: right foot ulcer History of Wound: This 77-year-old male returns to the wound healing clinic for reoccurrence of a right medial foot ulcer. Wound care has been Moistened Cass covered with Gal[place] SAP dressing. Patient diabetic neuropathic. Patient dealing [...] Charges/Coding Visit Charges Office Visits / Consults: 21002 OV L3 Est (25 modifier) Procedures Integumentary 150xxx-152xx: 23683 Skin sub graft face/nk/hf/g Physical Exam Const [...] Start: 09/25/22 14:25 Freq: Status: Active Protocol: BringrsPATRICA Activity Type Activity Date Activity User E-sign Co-sign Detail Recorded Client Recorded Date Recorded By Document 09/25/22 14:25 [facility] [id number] 09/25/22 14:32 [facility] Document 10/02/22 13:28 ML [id number] 10/02/22 13:32 ML 09/25/22 10/02/22 14:25 13:28 - Today's Visit Information Type of service Follow-up Visit Follow-up Visit (Physician/[employer] (Physician/[employer] ) ) Arrival Mode Ambulatory,Cane Cane Transfer [...] Date Recorded By Document 09/25/22 14:25 BM[facility] [id number] 09/25/22 14:32 BMF Document 10/02/22 13:28 ML [id number] 10/02/22 13:32 ML 09/25/22 10/02/22 14:25 13:28 [...] Recorded Date Recorded By Document 09/25/22 14:42 [id number] 09/25/22 14:51 Document 10/02/22 14:14 [id number] 10/02/22 14:17 09/25/22 10/02/22 14:42 14:14 Wound [...] -Expiration Date 06/20/27 05/20/27 -Product Lot Number [id number] -Percent Used 100 100 -Lot number of Saline Used [id number] -Bleeding Controlled with Pressure Pressure -Treatment Response [...] Recorded Date Recorded By Document 09/25/22 14:52 [id number] 09/25/22 14:53 Document 10/02/22 14:18 [id number] 10/02/22 14:19 09/25/22 10/02/22 14:52 14:18 Wound [...] worsen, they should go to the ED. 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 Tonio Fajardo, DO Status:REG RCR Location: History of Present Illness Date of Service: 08/29/22 Chief Complaint: right foot ulcer History of Wound: This 77-year-old male returns to the wound healing clinic for reoccurrence of a right medial foot ulcer. Wound care has been Moistened Cass covered with Gal[place] SAP dressing. Patient diabetic neuropathic. Patient dealing [...] Method Room Air Charges/Coding Procedures Integumentary 111xxx-113xx: 08610 Mihaela subq tissue 20 sq cm/< Debridement [...] Recorded Date Recorded By Document 08/29/22 13:17 [facility] [id number] 08/29/22 13:22 [facility] 08/29/22 13:17 WC - Today's Visit Information Type of service Follow-up Visit (Physician/[employer] ) Arrival Mode Ambulatory,Cane Transfer Assistance None [...] Recorded Date Recorded By Document 08/29/22 13:17 [facility] [id number] 08/29/22 13:22 [facility] 08/29/22 13:17 Wound Center Nurse 1 #9 [...] Recorded Date Recorded By Document 08/29/22 13:35 [id number] 08/29/22 13:40 D[facility] 08/29/22 13:35 Wound Center [...] Patient Pain Free? Yes WC - Nurse 3 - General Ulcer D/C NN Start: 08/29/22 13:15 Freq: Status: Active Protocol: Activity Type Activity Date Activity User E-sign Co-sign Detail Recorded Client Recorded Date Recorded By Document 08/29/22 13:47 DL [id number] 08/29/22 13:47 DL 08/29/22 13:47 Wound Care [...] Silvercel as the primary dressing covered with [place] SAP (secondarydressing) daily after washing foot with [...] 1536 <Electronically signed by Bonny Glynn NP [employer] FIXER-C> Cosigner Signature (if applicable): CC: ~ Signed [facility] Work Phone: 1(686) 925-956112-16-2022 Miscellaneous Notes* Telephone Encounter - Liseth Ortiz Ma - 08/04/2022 9:59 AM EST Pt PCP outside [facility]. Call to pt and notified him of Providers message. Pt states that he did talk tohim. BRAULIO. Liseth Ortiz Ma * Telephone Encounter - Jessie Rodriguez APRN.CNP - 07/28/2022 1:43 PM EST In reviewing patient's chart I do not see that he has had any follow up done in regards to his actionable chest xray finding. I left a message on patient's voicemail for him to call back and advise. Jessie Rodriguez APRN.SHANI documented in [facility] encounter[facility]22 Miscellaneous Notes* Telephone Encounter - Ashley Kelley - 04/08/2022 2:56 PM EDT Notified pt of results, daughter will call to get information on restrictions. Ashley Kelley * Telephone Encounter - Ashley Kelley - 04/08/2022 9:18 AM EDT left message on machine to give call back, different number from pharmacy. [phone]. Ashley Kelley * Telephone Encounter - Ashley Kelley - 04/07/2022 5:48 PM EDT Unable to reach patient. Mailbox full/Mailbox not set up/ Number incorrect. Please try again later. Ashley Allie * Telephone Encounter - Sigrid Monroe LPN - 04/06/2022 6:48 PM EDT Still unable to reach patient and camera person is spouse with same number.Sigrid Monroe LPN * Telephone Encounter - Sigrid Monroe LPN - 04/06/2022 7:59 AM EDT Unable to reach patient and rings a fast busy-try again later.Sigrid Monroe LPN * Telephone Encounter - Derek Castellanos MD - 04/06/2022 7:45 AM EDT COVID [...] symptoms; ER if severe. documented in this encounterSt. [facility] Hospital08-17-2022 NoteHNO ID: [id number] Author: Jessie Rodriguez APRN.[employer] Service: ? Author Type: Nurse Practitioner Type: [...] COVID WITH FLUA+B, ROUTINE Jessie Rodriguez APRN.[facility]08-17-2022 NoteHNO ID: [id number] Author: RT Jose Eduardo(R) Service: Nuclear Medicine [...] RT Jose Eduardo(R) April 05, 2022 1:[address] [facility]08-17-2022 Influenza virus A and B RNA and SARS-CoV-2 (COVID-19) N gene panel BRYAN+probe (Resp)COVID 19 RESULT: SARS-CoV-2 (Agent of COVID-19) Detected by RT-PCR or equivalent method. anatoly YKYT-WhI-5_[employer] (YASMEEN)_EUA This test was developed and its performance characteristics determined by [facility] [place]. This test has been authorized by FDA under an Emergency Use Authorization (EUA). This test has been validated in accordance with the FDA's Guidance Document Policy for DiagnosticsTesting in Laboratories Certified to Perform High Complexity Testing under CLIA prior to Emergency use Authorization for Coronavirus Disease 2019 during the Public Health Emergency issued on October 18, 2019. Test performed by [facility], Musa [facility] [place], [address] [place] [address]. INFLUENZA A PCR: Negative for Influenza A by RT-PCR INFLUENZA B PCR: Negative for Influenza B by RT-PCROhiohealthComment on above: Performed By: #### [id number] #### [facility] CLIA [id number] [address] [place] [address] [place] [address] [place] [id number] Miscellaneous Notes* Telephone Encounter - Jessie Rodriguez APRN.CNP - 04/05/2022 2:58 PM EDT Radiology report faxed to patient's PCP Dr. Tonio Fajardo at [phone]. Confirmation of fax received. Patient was advised to call Dr. Fajardo today for a follow up appointment. Jessie Rodriguez APRN.CNP documented in this encounterSt. [facility] Hospital08-17-2022 Instructions* Patient Instructions* Jessie Rodriguez APRN.CNP [...] - COVID WITH FLUA+B, ROUTINE Jessie Rodriguez APRN.[employer] documented in this encounterSt. [facility]08-17-2022 History of Present illness Narrative* Jessie Rodriguez APRN.[employer] - 04/05/2022 2:03 PM EDT Subjective HPI [...] - COVID WITH FLUA+B, ROUTINE Jessie Rodriguez APRN.[employer] documented in this encounterSt. [facility]08-17-2022 History of Present illness Narrative* Yuliana Olivera RT(R) - 04/05/2022 2:00 PM EDT Radiology [...] 05, 2022 1:55 PM documented in this encounterSt. Vincent HospitalConsult note Author Mala Diamond [facility] Note Date/Time March 09, 2025 2:58 pm [facility] Medical Records Department [address] [place] [address] Counseling Note - Pharmacy 03/09/25 1457 MR#: [id number] Acct: [id number] Name: PEDRO HILLMAN Rep #:[id number] : 1945 80 From: Mala Diamond PCP: Dr. Tonio Fajardo, DO Status:ADM IN Y Location: [place] [address] Pharmacy [facility] Counseling Pharmacy Service has performed discharge medication reconciliation and counseling for this patient. 1. DILTIAZEM 120MG PO DAILY 2. TAMSULOSIN 0.4MG PO DAILY 3. APIXABAN DECREASED 2.5MG PO BID 4. HOLD JANUVIA 5. STOP LISINOPRIL AND METOPROLOL The patient's discharge medication list was reviewed for discrepancies and discrepancies were resolved. The patient was counseled on the following discharge medications and changes in medications for homegoing were reviewed. The Reason for Use, instructions for use, and potential side effects were reviewed for all new medications. The patient's questions regarding all of their medications were answered. The patient was able to verbally demonstrate an understanding of their dischargemedications. Medications at Discharge Home Medications insulin glargine 100 unit/mL subcutaneous solution 30 unit SQ DAILY diabetes 11/19/19 multivitamin (Daily Multi-Vitamin tablet) 1 tab PO DAILY supplement 06/28/20 sitagliptin phosphate 50 mg tablet (Januvia) 50 mg PO DAILY diabetes 11/02/21 Held on 03/09/25. Instructions: Hold for at least 2 weeks until kidney function returns to baseline. Follow with PCP pravastatin 20 mg tablet 20 mg PO DAILY hyperlipidemia 01/17/22 cranberry 500 mg capsule 500 mg PO DAILY supplement 07/25/23 docusate sodium 100 mg capsule (Colace) 100 mg PO DAILY PRN stool softn 07/25/23 albuterol sulfate 90 mcg/actuation aerosol inhaler 2 puff inhalation Q4H PRN shortness of breath or wheezing #3 device 10/23/24 umeclidinium 62.5 mcg-vilanterol 25 mcg/actuation powdr for inhalation (Anoro Ellipta) 1 inh inhalation QDAY copd #60 ea 10/23/24 clopidogrel 75 mg tablet (Plavix) 75 mg PO DAILY atrial fibrillation #90 tabs 11/11/24 apixaban 5 mg tablet (Eliquis) 2.5 mg (1/2 x 5 mg) PO BID 30 days #30 tabs 03/09/25 diltiazem HCl 120 mg capsule,extended release 24 hr 120 mg PO DAILY 30 days #30 caps 03/09/25 guaifenesin 1,200 mg tablet, extended release 12 hr 1,200 mg PO Q12H 7 days #14 tabs 03/09/25 tamsulosin 0.4 mg capsule 0.4 mg PO DAILY@1730 30 days #30 caps 03/09/25 03/09/25 [id number] <Electronically signed by Mala Diamond> Date _ Mala Diamond Cosigner Signature (if applicable): Date CC: ~ Signed [facility] Work Phone: Evaluation note* Diagnosis Onset Date Resolution Status Malnutrition chronic 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 Venous insufficiency chronic Ulcer of right foot with fat layer exposed resolved [facility] Work Phone: Evaluation note* Diagnosis Onset [...] right foot with fat layer exposed resolved [facility] Work Phone: Evaluation note* Diagnosis Onset [...] right foot with fat layer exposed resolved [facility] Work Phone: Evaluation note* Diagnosis Onset [...] 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 Diagnosis Onset Date Resolution Status [...] acute Nicotine dependence, cigarettes, in remission acute [facility] Work Phone: Evaluation note* Diagnosis Onset [...] right foot with fat layer exposed resolved [facility] Work Phone: Evaluation note* Diagnosis Onset [...] right foot with fat layer exposed resolved [facility] Work Phone: Evaluation note* Diagnosis Onset [...] of upper lobe of right lung acute [facility] Work Phone: Evaluation note* Diagnosis Onset [...] of upper lobe of right lung acute [facility] Work Phone: Evaluation note* Diagnosis Onset [...] of upper lobe of right lung acute [facility] Work Phone: Evaluation note* Diagnosis Onset [...] right lung chronic 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 [...] 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 [facility] Work Phone: Evaluation note* Diagnosis Onset [...] right foot with fat layer exposed chronic [facility] Work Phone: Evaluation note* Diagnosis Onset [...] right foot with fat layer exposed chronic [facility] Work Phone: Evaluation note* Diagnosis Onset [...] layer exposed chronic Shortness of breath chronic [facility] Work Phone: Evaluation note* Diagnosis Onset [...] of upper lobe of right lung chronic [facility] Work Phone: Evaluation note* Diagnosis Onset [...] of upper lobe of right lung chronic [facility] Work Phone: Evaluation note* Diagnosis Onset [...] right foot with fat layer exposed chronic [facility] Work Phone: Evaluation note* Diagnosis Onset [...] right foot with fat layer exposed chronic [facility] Work Phone: Evaluation note* Diagnosis Onset [...] right foot with fat layer exposed chronic [facility] Work Phone: Evaluation note* Diagnosis Onset [...] right foot with fat layer exposed chronic [facility] Work Phone: Evaluation note* Diagnosis Onset [...] right foot with fat layer exposed chronic [facility] Work Phone: Evaluation note* Diagnosis Onset [...] right foot with fat layer exposed resolved [facility] Work Phone: Evaluation note* Diagnosis Onset [...] right foot with fat layer exposed chronic [facility] Work Phone: Evaluation note* Diagnosis Onset [...] of upper lobe of right lung chronic [facility] Work Phone: Evaluation note* Diagnosis Onset Date Resolution Status Irregular heart rate acute COPD (chronic obstructive pulmonary disease) chronic 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 Plenty of fluids and rest today do not get dehydrated. Return if you are feeling a lot worse or too weak to get around her house. Follow-up with your doctor in the next several days to ensure you are improving. [facility] Work Phone: Hospital Discharge instructions Additional Instructions 1. Keep your postoperative dressing clean dry and intact 2. Continue strict glycemic control. 3. Partial weightbearing to heel with surgical shoe, use walker or crutches 4. Reach out to Dr. Suárez with any questions or concerns and follow-up in 1 week in clinic. [facility] Reason for referral (narrative)No reason for referral information availableWBarber[facility] Work Phone: Chief Complaint and Reason [...] 2:35pm Chief Complaint Admit Date 1 Y September 25, 2024 1 2:50pm EORDERS September [...] 04 7:57pm Atherosclerosis of coronary artery of [place] heart without angina pectoris March 04, 2025 7:57pm CHF exacerbation March 04, 2025 7:57 pm Chief Complaint Admit Date AE CHF, ATRIAL FLUTTER; WITH RVR AND HOMA VATED March 04, 2025 7:57pm AE CHF, ATRIAL FLUTTER; WITH RVR AND HOMA VATED March 05, 2025 7:19am AE CHF, ATRIAL FLUTTER; WITH RVR AND HOMA VATED March 06, 2025 9:26am AE CHF, ATRIAL FLUTTER; WITH RVR AND HOMA VATED March 06, 2025 3:40pm AE CHF, ATRIAL FLUTTER; WITH RVR AND HOMA VATED March 07, 2025 1:42pm AE CHF, ATRIAL FLUTTER; WITH RVR AND HOMA VATED March 08, 2025 8:44am AE CHF, ATRIAL FLUTTER; WITH RVR AND HOMA VATED March 08, 2025 8:48am AE CHF, ATRIAL FLUTTER; WITH RVR AND HOMA VATED March 09, 2025 9:43am AE CHF, ATRIAL FLUTTER; WITH RVR AND HOMA VATED March 09, 2025 12:51pm Reason for Visit Admit Date Acute cystitis with hematuria March 04, 2025 7:57pm Atrial flutter with rapid ventricular re sponse March 04, 2025 7:57pm Chronic anticoagulation March 04, 2025 7:57pm Coronary artery disease March 04, 2025 7:57pm Diabetes March 04, 2025 7:57 pm Elevated troponin March 04, 2025 7:57 pm Hyperkalemia March 04, 2025 7:57 pm Mitral valve regurgitation March 04 7:57pm Other persistent atrial fibrillation Lev 2024 7:57pm Overweight (BMI 25.0-29.9) March 04 7:57pm Peripheral arterial disease March 04, 2 025 7:57pm Pleural effusion on right March 04 7:57pm Tricuspid valve regurgitation March 04, 2025 7:57pm Acute on chronic diastolic congestive he art failure March 04, 2025 7:57pm Atherosclerosis of coronary artery of [place] heart without angina pectoris March 04, 2025 7:57pm CHF exacerbation March 04, 2025 7:57 pm Hypertension March 04, 2025 7:57 pm Advance Directives No Advanced Directives Records Found Advance Directive Response Recorded Date/ Time Advance Directives No February 17 4 11:03am Living Will No February 17, 2014 1 1:03am Power of [place]opewalk Rope Maker No February 17, 2014 11:03am Advance Directive Response Recorded Date/ Time Name of Medical Power of [place]ope[place] Rope Maker SON April 14, 2022 8:29am Advance Directives No February 17 4 11:03am Living Will No [place] [address], 202 2 8:29am Power of [place]ope[place] Rope Maker Yes April 14 8:29am Advance Directive Response Recorded Date/ Time Name of Medical Power of [place] Rope Maker SON April 14, 2022 7:29am Advance Directives No February 17 4 10:03am Living Will No April 14 2 7:29am Power of [place] Rope Maker Yes April 14 7:29am Advance Directive Response Recorded Date/ Time Advance Directives No February 17 4 10:03am Living Will No April 14 2 7:29am Power of [place] Rope Maker Yes April 14 7:29am Advance Directive Response Recorded Date/ Time Advance Directives No February 17 4 11:03am Living Will No April 14 8:29am Power of [place]ope[place] Rope Maker Yes April 14 8:29am Advance Directive Response Recorded Date/ Time Name of Medical Power of [place]opewalk Rope Maker Gideon Calderon December 30, 2022 10:39pm Advance Directives No February 17 11:03am Living Will Yes December 30, 2022 1 0:39pm Power of [place]ope[place] Rope Maker Yes December 30, 2022 10:39pm Advance Directive Response Recorded Date/ Time Advance Directives No February 17 4 11:03am Living Will Yes December 30, 2022 1 0:39pm Power of [place]ope[place] Rope Maker Yes December 30, 2022 10:39pm Advance Directive Response Recorded Date/ Time Advance Directives No February 17 4 10:03am Living Will Yes December 30, 2022 9 :39pm Power of [place]ope[place] Rope Maker Yes December 30, 2022 9:39pm Advance Directive Response Recorded Date/ Time Living Will Yes December 30, 2022 1 0:39pm Power of [place]ope[place] Rope Maker Yes December 30, 2022 10:39pm Advance Directives No February 17 11:03am Advance Directive Response Recorded Date/ Time Living Will Yes December 30, 2022 1 0:39pm Do you have a Healthcare Power of [place]opewalk Rope Maker? Yes December 30, 2022 10:39pm Living Will No April 14 8:29am Do you have a Healthcare Power of [place]ope[place] Rope Maker? Yes April 14, 2022 8:29am Advance Directives No February 17 11:03am Advance Directive Response Recorded Date/ Time Living Will No April 14 8:29am Do you have a Healthcare Pow er of [place]ope[place] Rope Maker? Yes April 14, 2022 8:29am Do you have a Healthcare Pow er of [place] Rope Maker? Yes March 04, 2025 2:58pm Name of Medical Power of [place]ope[place] Rope Maker Gideon olmstead March 04, 2025 2:58pm Advance Directives No February 17 11:03am Advance Directive Response Recorded Date/ Time Do you have a Healthcare Power of [place]opewalk Rope Maker? Yes March 04, 2025 9:11pm Name of Medical Power of [place]ope[place] Rope Maker Gideon olmstead March 04, 2025 2:58pm Advance Directives No February 17 11:03am Health Concerns Infection Onset Date Last [...] or prosecute any alcohol or drug abuse patient.[facility] the event this information is protected by the Federal Confidentiality of Alcohol and Drug Abuse Patient Records regulations: The Federal rules restrict any use of the information to criminally investigate or prosecute any alcohol or drug abuse patient.[facility] the event this information is protected by the Federal Confidentiality of Alcohol and Drug Abuse Patient Records regulations: The Federal rules restrict any use of the information to criminally investigate or prosecute any alcohol or drug abuse patient.[facility] the event this information is protected by the Federal Confidentiality of Alcohol and Drug Abuse Patient Records regulations: The Federal rules restrict any use of the information to criminally investigate or prosecute any alcohol or drug abuse patient.[facility] the event this information is protected by the Federal Confidentiality of Alcohol and Drug Abuse Patient Records regulations: The Federal rules restrict any use of the information to criminally investigate or prosecute any alcohol or drug abuse patient.[facility] Reason for Visit (unrecogniz ed section and content) Reason Comments Results Reason Comments Urinary Problem burning with urinati on x 1 week nasal congestion and drainage x 1 week Reason Comments Results COVID+ Reason Comments Patient Update Care Teams (unrecognized sec tion and content) Chemistry Laboratory Technician Relationship Specialty Start Date End Date Tonio Fajardo, [address] [place], [place] [id number] PCP - General Family Practice 04/05/22 Chemistry Laboratory Technician Relationship Specialty Start Date End Date Tonio Fajardo [address] [place], [place] [id number] PCP - General Family Practice 04/05/22 Chemistry Laboratory Technician Relationship Specialty Start Date End Date Tonio Fajardo [address] [place], [place] [phone] PCP - General Family Practice 04/05/22 Chemistry Laboratory Technician Relationship Specialty Start Date End Date Tonio FajardoDO [address] [place], [place] [id number] PCP - General Family Medicine 04/05/22 Team Status: Active Member Role Status Dates Dr. Tonio Fajardo DO Family Provider Active Dr. Tonio Fajardo DO Primary Care Provider Active Team Status: Inactive Member Role Status Dates Dr. Tonio Fajardo DO Primary Care Provider, Referrin g Provider Active Iker Rodriguez SPINNER FIXER, SPINNER FIXER-C Attending Provider Active Team Status: Inactive Member [...] DO Primary Care Provider Active Bonny Glynn SPINNER FIXER, SPINNER FIXER-C Attending Pro vider, Referring Provider, Other Provider Active Team Status: Active Member Role Status Dates Dr. Tonio Fajardo DO Primary Care Provider Active Dr. Srini Choi DO Attending Provider, Referring P rovider Active Team Status: Active Member Role Status Dates Dr. Tonio Fajardo DO Primary Care Provider Active Dr. Srini Choi DO Referring Provider, Other Provi jose armando Active Dr. Mateo Shahid MD Attending Provider Active Team Status: Inactive Member Role Status Dates Dr. Tonio Fajardo DO Primary Care Provider Active Dr. Tevin Allen MD Active Dr. Srini Choi DO Attending Provider, Referring P rovider Active Team Status: Inactive Member Role Status Dates Dr. Tonio Fajardo DO Primary Care Provider Active Dr. Srini Choi DO Attending Provider, Referring P rovider Active Team Status: Active Member Role Status Dates Dr. Tonio Fajardo DO Primary Care Provider Active Dr. Srini Choi DO Attending Provider Active Team Status: Active Member Role Status Dates Dr. Tonio Fajardo DO Primary Care Provider Active Dr. Russ Zamora MD Attending Provider, Referring Pro vider Active Dr. Srini Choi DO Other Provider Active Team Status: Inactive Member Role Status Dates Dr. Tonio Fajardo DO Primary Care Provider Active Bonny Glynn NP, SPINNER FIXER-C Attending Provider Active Team Status: Active Member [...] DO Primary Care Provider Active Bonny Glynn SPINNER FIXER, SPINNER FIXER-C Attending Provider Active Team Status: Inactive Member Role Status Dates Dr. Tonio Fajardo , DO Primary Care Provider Active Bonnyap PeresRenard SPINNER FIXER, SPINNER FIXER-C Attending Provider, Referri ng Provider Active Team Status: Inactive Member Role Status Dates Dr. Tonio Fajardo , DO Primary Care Provider, Referrin g Provider Active Dr. Tyrell Uriarte , DO Attending Provider Active Team Status: Active Member Role Status Dates Dr. Tonio Fajardo , DO Primary Care Provider Active Bonny Glynn SPINNER FIXER, SPINNER FIXER-C Attending Provider, Other P rovider Active Team Status: Inactive Member Role Status Dates Dr. Tonio Fajardo DO Primary Care Provider Active Dr. Chris Ochoa MD Emergency Provider Active Team Status: Inactive Member Role Status Dates Dr. Tonio Fajardo DO Primary Care Provider Active Dr. Chris [...] Provider, Referrin g Provider Active Bonny Glynn SPINNER FIXER, SPINNER FIXER-C Attending Provider Active Team Status: Inactive Member [...] Care Provider Active Dr. Joaquim Suárez DPM Referring Provider Active Dr. Edi Ledesma DPM Attending Provider Active Team Status: Inactive Member Role Status Dates Dr. Tonio Fajardo DO Primary Care Provider, Referrin g Provider Active Lorie Mart SPINNER FIXER, SPINNER FIXER-C Attending Provider Active Team Status: Inactive Member Role Status Dates Dr. Tonio Fajardo DO Primary Care Provider, Referrin g Provider Active Leslie Arriaga PA, PA Attending Provider Active Team Status: Inactive Member Role Status Dates Dr. Tonio Fajardo DO Primary Care Provider Active Lorie Mart SPINNER FIXER, SPINNER FIXER-C Attending Provider, Referrin g Provider Active Team Status: Active Member Role Status Dates Dr. Tonio Fajardo DO Primary Care Provider Active Dr. Issa Looney MD Attending Provider Active Team Status: Inactive Member Role Status Dates Dr. Tonio Fajardo DO Primary Care Provider Active Leslie Arriaga PA, PA Attending Provider, Referr ing Provider Active Team Status: Inactive Member Role Status Dates Dr. Tonio Fajardo DO Primary Care Provider Active Dr. Joaquim Suárez DPM Attending Provider Active Chemistry Laboratory Technician Relationship Specialty Start Date End Date Tonio Fajardo DO [address] [place] [address] PCP - General Family Medicine 04/05/22 Team [...] 25, 2024 End: September 25, 2024 Leslie DAMIAN, PA Attending Provider Active Start: September 25, 2024 End: September 25, 2024 Team Status: Inactive Member Role Status Dates Dr. Tonio Fajardo DO Primary Care Provider Active Start: September 25, 2024 End: September 25, 2024 Leslie Arriaga PA, PA Attending Provider Active Start: September 25, 2024 End: September 25, 2024 Leslie Arriaga PA, PA Referring Provider Active Start: September 25, 2024 End: September 25, 2024 Team Status: Inactive Member Role Status Dates Dr. Tonio Fajardo DO Primary Care Provider Active Start: October 16, 2024 End: October 16, 2024 Lorie Mart SPINNER FIXER, SPINNER FIXER-C Attending Provider Active Start: October 16, 2024 End: October 16, 2024 Lorie Mart SPINNER FIXER, SPINNER FIXER-C Referring Provider Active Start: October 16, 2024 End: October 16, 2024 Team Status: Active Member Role Status Dates Dr. Tonio Fajardo DO Primary Care Provider Active Start: October 17, 2024 Lorie Mart SPINNER FIXER, SPINNER FIXER-C Referring Provider Active Start: October 17, 2024 Lorie Mart SPINNER FIXER, SPINNER FIXER-C Other Provider Active Start: October 17, 2024 [...] 2024 End: October 23, 2024 Lorie Mart SPINNER FIXER, SPINNER FIXER-C Attending Provider Active Start: October 23, 2024 [...] Attending Provider Active Start: March 04, 2025 Team Status: Inactive Member Role/Relationship Status Dates Dr. Tonio Fajardo DO Primary Care Provider Active Start: March 04, 2025 End: March 09, 2025 Dr. Chris Ochoa MD Emergency Provider Active S tart: March 04, 2025 End: March 09, 2025 Dr. Nicola Lindsey DO Admit Provider Active Start: March 04, 2025 End: March 09, 2025 Dr. Nicola Lindsey DO Other Provider Active Start: March 04, 2025 End: March 09, 2025 Dr. Deric Lantigua MD Attending Provider Active Start: March 04, 2025 End: March 09, 2025 Dr. Paris Tiwari MD Other Provider Active Start: March 04, 2025 End: March 09, 2025 Dr. Susan Hawley MD Other Provider Active Start : March 04, 2025 End: March 09, 2025 Dr. Nicolette Mcdonald MD Other Provider Active St art: March 04, 2025 End: March 09, 2025 Dr. Marjorie Green MD Other Provider Active Star t: March 04, 2025 End: March 09, 2025 Dr. Martin Vivas MD Other Provider Active Sta rt: March 04, 2025 End: March 09, 2025 Dr. Jose Lai MD Other Provider Active Star t: March 04, 2025 End: March 09, 2025 Dr. Issa Looney MD Other Provider Active Start : March 04, 2025 End: March 09, 2025 Dr. Chago Miller MD Other Provider Active Star t: March 04, 2025 End: March 09, 2025 Dr. Willian Glaser MD Other Provider Active St art: March 04, 2025 End: March 09, 2025 Dr. Orly Mitchell MD Other Provider Active Start: March 04, 2025 End: March 09, 2025 Dr. Reinaldo Mclain MD Other Provider Active S tart: March 04, 2025 End: March 09, 2025 Dr. Santos Hsu MD Other Provider Active Start: March 04, 2025 End: March 09, 2025 Iker Stephens Michael SPINNER FIXER, SPINNER FIXER-C Other Provider Active Start : March 04, 2025 End: March 09, 2025 Leslie Arriaga PA, PA Other Provider Active Start: March 04, 2025 End: March 09, 2025 RICKIE Cummins Other Provider Active Start: March 04, 2025 End: March 09, 2025 Team Status: Active Member Role/Relationship Status Dates Dr. Tonio Fajardo DO Primary Care Provider Active Start: March 05, 2025 Dr. Chris Ochoa MD Emergency Provider Active S tart: March 05, 2025 Dr. Nicola Lindsey DO Admit Provider Active Start: March 05, 2025 Dr. Nicola Lindsey DO Other Provider Active Start: March 05, 2025 Dr. Deric Lantigua MD Attending Provider Active Start: March 05, 2025 Dr. Deric Lantigua MD Other Provider Active Sta rt: March 05, 2025 Dr. Paris Tiwari MD Other Provider Active Start: March 05, 2025 Dr. Susan Hawley MD Other Provider Active Start : March 05, 2025 Dr. Nicolette Mcdonald MD Other Provider Active St art: March 05, 2025 Dr. Marjorie Green MD Other Provider Active Star t: March 05, 2025 Dr. Martin Vivas MD Other Provider Active Sta rt: March 05, 2025 Dr. Jose Lai MD Other Provider Active Star t: March 05, 2025 Dr. Issa Looney MD Other Provider Active Start : March 05, 2025 Dr. Chago Miller MD Other Provider Active Star t: March 05, 2025 Dr. Willian Glaser MD Other Provider Active St art: March 05, 2025 Dr. Orly Mitchell MD Other Provider Active Start: March 05, 2025 Dr. Reinaldo Mclain MD Other Provider Active S tart: March 05, 2025 Dr. Santos Hsu MD Other Provider Active Start: March 05, 2025 Iker Rodriguez SPINNER FIXER, SPINNER FIXER-C Other Provider Active Start : March 05, 2025 Leslie Arriaga PA, PA Other Provider Active Start: March 05, 2025 RICKIE Cummins Other Provider Active Start: March 05, 2025 Team Status: Active Member Role/Relationship Status Dates Dr. Tonio Fajardo DO Primary Care Provider Active Start: March 05, 2025 Dr. Marjorie Green MD Attending Provider Active Start: March 05, 2025 Team Status: Active Member Role/Relationship Status Dates Dr. Tonio Fajardo DO Primary Care Provider Active Start: March 06, 2025 Dr. Chris Ochoa MD Emergency Provider Active S tart: March 06, 2025 Dr. Nicola Lindsey DO Admit Provider Active Start: March 06, 2025 Dr. Nicola Lindsey DO Other Provider Active Start: March 06, 2025 Dr. Deric Lantigua MD Other Provider Active Sta rt: March 06, 2025 Dr. Paris Tiwari MD Other Provider Active Start: March 06, 2025 Dr. Susan Hawley MD Other Provider Active Start : March 06, 2025 Dr. Nicolette Mcdonald MD Other Provider Active St art: March 06, 2025 Dr. Marjorie Green MD Attending Provider Active Start: March 06, 2025 Dr. Marjorie Green MD Other Provider Active Star t: March 06, 2025 Dr. Martin Vivas MD Other Provider Active Sta rt: March 06, 2025 Dr. Jose Lai MD Other Provider Active Star t: March 06, 2025 Dr. Issa Looney MD Other Provider Active Start : March 06, 2025 Dr. Chago Miller MD Other Provider Active Star t: March 06, 2025 Dr. Willian Glaser MD Other Provider Active St art: March 06, 2025 Dr. Orly Mitchell MD Other Provider Active Start: March 06, 2025 Dr. Reinaldo Mclain MD Other Provider Active S tart: March 06, 2025 Dr. Santos Hsu MD Other Provider Active Start: March 06, 2025 Iker Rodriguez SPINNER FIXER, SPINNER FIXER-C Other Provider Active Start : March 06, 2025 Leslie DAMIAN, PA Other Provider Active Start: March 06, 2025 RICKIE Cummins Other Provider Active Start: March 06, 2025 Team Status: Active Member Role/Relationship Status Dates Dr. Tonio Fajardo DO Primary Care Provider Active Start: March 06, 2025 Dr. Chris Ochoa MD Emergency Provider Active S tart: March 06, 2025 Dr. Nicola Lindsey DO Admit Provider Active Start: March 06, 2025 Dr. Nicola Lindsey DO Other Provider Active Start: March 06, 2025 Dr. Deric Lantigua MD Attending Provider Active Start: March 06, 2025 Dr. Deric Lantigua MD Other Provider Active Sta rt: March 06, 2025 Dr. Paris Tiwari MD Other Provider Active Start: March 06, 2025 Dr. Susan Hawley MD Other Provider Active Start : March 06, 2025 Dr. Nicolette Mcdonald MD Other Provider Active St art: March 06, 2025 Dr. Marjorie Green MD Other Provider Active Star t: March 06, 2025 Dr. Martin Vivas MD Other Provider Active Sta rt: March 06, 2025 Dr. Jose Lai MD Other Provider Active Star t: March 06, 2025 Dr. Issa Looney MD Other Provider Active Start : March 06, 2025 Dr. Chago Miller MD Other Provider Active Star t: March 06, 2025 Dr. Willian Glaser MD Other Provider Active St art: March 06, 2025 Dr. Orly Mitchell MD Other Provider Active Start: March 06, 2025 Dr. Reinaldo Mclain MD Other Provider Active S tart: March 06, 2025 Dr. Santos Hsu MD Other Provider Active Start: March 06, 2025 Iker Rodriguez SPINNER FIXER, SPINNER FIXER-C Other Provider Active Start : March 06, 2025 Leslie DAMIAN, PA Other Provider Active Start: March 06, 2025 RICKIE Cummins Other Provider Active Start: March 06, 2025 Team Status: Active Member Role/Relationship Status Dates Dr. Tonio Fajardo DO Primary Care Provider Active Start: March 07, 2025 Dr. Chris Ochoa MD Emergency Provider Active S tart: March 07, 2025 Dr. Nicola Lindsey DO Admit Provider Active Start: March 07, 2025 Dr. Nicola Lindsey DO Other Provider Active Start: March 07, 2025 Dr. Deric Lantigua MD Attending Provider Active Start: March 07, 2025 Dr. Deric Lantigua MD Other Provider Active Sta rt: March 07, 2025 Dr. Paris Tiwari MD Other Provider Active Start: March 07, 2025 Dr. Susan Hawley MD Other Provider Active Start : March 07, 2025 Dr. Nicolette Mcdonald MD Other Provider Active St art: March 07, 2025 Dr. Marjorie Green MD Other Provider Active Star t: March 07, 2025 Dr. Martin Vivas MD Other Provider Active Sta rt: March 07, 2025 Dr. Jose Lai MD Other Provider Active Star t: March 07, 2025 Dr. Issa Looney MD Other Provider Active Start : March 07, 2025 Dr. Chago Miller MD Other Provider Active Star t: March 07, 2025 Dr. Willian Glaser MD Other Provider Active St art: March 07, 2025 Dr. Orly Mitchell MD Other Provider Active Start: March 07, 2025 Dr. Reinaldo Mclain MD Other Provider Active S tart: March 07, 2025 Dr. Santos Hsu MD Other Provider Active Start: March 07, 2025 Iker Rodriguez SPINNER FIXER, SPINNER FIXER-C Other Provider Active Start : March 07, 2025 Leslie Arriaga PA, PA Other Provider Active Start: March 07, 2025 RICKIE Cmumins Other Provider Active Start: March 07, 2025 Team Status: Active Member Role/Relationship Status Dates Dr. Tonio Fajardo DO Primary Care Provider Active Start: March 08, 2025 Dr. Chris Ochoa MD Emergency Provider Active S tart: March 08, 2025 Dr. Nicola Lindsey DO Admit Provider Active Start: March 08, 2025 Dr. Nicola Lindsey DO Other Provider Active Start: March 08, 2025 Dr. Deric Lantigua MD Attending Provider Active Start: March 08, 2025 Dr. Deric Lantigua MD Other Provider Active Sta rt: March 08, 2025 Dr. Paris Tiwari MD Other Provider Active Start: March 08, 2025 Dr. Susan Hawley MD Other Provider Active Start : March 08, 2025 Dr. Nicolette Mcdonald MD Other Provider Active St art: March 08, 2025 Dr. Marjorie Green MD Other Provider Active Star t: March 08, 2025 Dr. Martin Vivas MD Other Provider Active Sta rt: March 08, 2025 Dr. Jose Lai MD Other Provider Active Star t: March 08, 2025 Dr. Issa Looney MD Other Provider Active Start : March 08, 2025 Dr. Chago Miller MD Other Provider Active Star t: March 08, 2025 Dr. Willian Glaser MD Other Provider Active St art: March 08, 2025 Dr. Orly Mitchell MD Other Provider Active Start: March 08, 2025 Dr. Reinaldo Mclain MD Other Provider Active S tart: March 08, 2025 Dr. Santos Hsu MD Other Provider Active Start: March 08, 2025 Iker Rodriguez SPINNER FIXER, SPINNER FIXER-C Other Provider Active Start : March 08, 2025 Leslie DAMIAN, PA Other Provider Active Start: March 08, 2025 RICKIE Cummins Other Provider Active Start: March 08, 2025 Team Status: Active Member Role/Relationship Status Dates Dr. Tonio Fajardo DO Primary Care Provider Active Start: March 08, 2025 Dr. Chris Ochoa MD Emergency Provider Active S tart: March 08, 2025 Dr. Nicola Lindsey DO Admit Provider Active Start: March 08, 2025 Dr. Nicola Lindsey DO Other Provider Active Start: March 08, 2025 Dr. Deric Lantigua MD Other Provider Active Sta rt: March 08, 2025 Dr. Paris Tiwari MD Other Provider Active Start: March 08, 2025 Dr. Susan Hawley MD Other Provider Active Start : March 08, 2025 Dr. Nicolette Mcdonald MD Other Provider Active St art: March 08, 2025 Dr. Marjorie Green MD Attending Provider Active Start: March 08, 2025 Dr. Marjorie Green MD Other Provider Active Star t: March 08, 2025 Dr. Martin Vivas MD Other Provider Active Sta rt: March 08, 2025 Dr. Jose Lai MD Other Provider Active Star t: March 08, 2025 Dr. Issa Looney MD Other Provider Active Start : March 08, 2025 Dr. Chago Miller MD Other Provider Active Star t: March 08, 2025 Dr. Willian Glaser MD Other Provider Active St art: March 08, 2025 Dr. Orly Mitchell MD Other Provider Active Start: March 08, 2025 Dr. Reinaldo Mclain MD Other Provider Active S tart: March 08, 2025 Dr. Santos Hsu MD Other Provider Active Start: March 08, 2025 Iker Rodriguez SPINNER FIXER, SPINNER FIXER-C Other Provider Active Start : March 08, 2025 Leslie Arriaga PA, PA Other Provider Active Start: March 08, 2025 RICKIE Cummins Other Provider Active Start: March 08, 2025 Team Status: Active Member Role/Relationship Status Dates Dr. Tonio Fajardo DO Primary Care Provider Active Start: March 09, 2025 Dr. Chris Ochoa MD Emergency Provider Active S tart: March 09, 2025 Dr. Nicola Lindsey DO Admit Provider Active Start: March 09, 2025 Dr. Nicola Lindsey DO Other Provider Active Start: March 09, 2025 Dr. Deric Lantigua MD Other Provider Active Sta rt: March 09, 2025 Dr. Paris Tiwari MD Other Provider Active Start: March 09, 2025 Dr. Susan Hawley MD Other Provider Active Start : March 09, 2025 Dr. Nicolette Mcdonald MD Other Provider Active St art: March 09, 2025 Dr. Marjorie Green MD Other Provider Active Star t: March 09, 2025 Dr. Martin Vivas MD Other Provider Active Sta rt: March 09, 2025 Dr. Jose Lai MD Other Provider Active Star t: March 09, 2025 Dr. Issa Looney MD Other Provider Active Start : March 09, 2025 Dr. Chago Miller MD Other Provider Active Star t: March 09, 2025 Dr. Willian Glaser MD Attending Provider Active Start: March 09, 2025 Dr. Willian Glaser MD Other Provider Active St art: March 09, 2025 Dr. Orly Mitchell MD Other Provider Active Start: March 09, 2025 Dr. Reinaldo Mclain MD Other Provider Active S tart: March 09, 2025 Dr. Santos Hsu MD Other Provider Active Start: March 09, 2025 Iker Rodriguez SPINNER FIXER, SPINNER FIXER-C Other Provider Active Start : March 09, 2025 Leslie Arriaga PA, PA Other Provider Active Start: March 09, 2025 RICKIE Cummins Other Provider Active Start: March 09, 2025 Team Status: Active Member Role/Relationship Status Dates Dr. Tonio Fajardo DO Primary Care Provider Active Start: March 09, 2025 Dr. Chris Ochoa MD Emergency Provider Active S tart: March 09, 2025 Dr. Nicola Lindsey DO Admit Provider Active Start: March 09, 2025 Dr. Nicola Lindsey DO Other Provider Active Start: March 09, 2025 Dr. Deric Lantigua MD Attending Provider Active Start: March 09, 2025 Dr. Deric Lantigua MD Other Provider Active Sta rt: March 09, 2025 Dr. Paris Tiwari MD Other Provider Active Start: March 09, 2025 Dr. Susan Hawley MD Other Provider Active Start : March 09, 2025 Dr. Nicolette Mcdonald MD Other Provider Active St art: March 09, 2025 Dr. Marjorie Green MD Other Provider Active Star t: March 09, 2025 Dr. Martin Vivas MD Other Provider Active Sta rt: March 09, 2025 Dr. Jose Lai MD Other Provider Active Star t: March 09, 2025 Dr. Issa Looney MD Other Provider Active Start : March 09, 2025 Dr. Chago Miller MD Other Provider Active Star t: March 09, 2025 Dr. Willian Glaser MD Other Provider Active St art: March 09, 2025 Dr. Orly Mitchell MD Other Provider Active Start: March 09, 2025 Dr. Reinaldo Mclain MD Other Provider Active S tart: March 09, 2025 Dr. Santos Hsu MD Other Provider Active Start: March 09, 2025 Iker Rodriguez SPINNER FIXER, SPINNER FIXER-C Other Provider Active Start : March 09, 2025 Leslie Arriaga PA, PA Other Provider Active Start: March 09, 2025 RICKIE Cummins Other Provider Active Start: March 09, 2025 (unrecognized sect ion and content) No Status Records FoundNo Status Records Found INFORMATION SOURCE (unrecogn ized section and content) DATE CREATED AUTHOR 08/12/2022 [facility] DATE CREATED AUTHOR AUTHOR'S ELYSIAIZ ATSALVADOR 03/14/2025 [facility] FOR RECORDS PERTAINING TO PATIENTS WHO [...] BE BASED ON THE PRIMARY CLINICAL RECORDS. [employer] provides no warranty or guarantee of the accuracy or completeness of information in this document.
--- NOTE | 2025-03-15 18:14 | EDS_ITS ---
HPI History of Present Illness Chief Complaint: Nosebleed Detail of Chief Complaint: Epistaxis left Informant: patient, EMS and SNF Onset/Context/Timing Onset: Today and Hours Context: Sudden Onset Timing: Continuous Quality: bleeding noted left side Location: Left septum Current Severity: Gone (Bleeding controlled with nose clamp.) Maximum Severity: Moderate Worsened by: Anticoagulant Relieved by: Pressure Associated Symptoms Associated Symptoms: None Narrative Narrative: Patient is an 80-year-old male. He was recently admitted for congestive heart failure. He is on oxygen at 3 L by nasal cannula. He is on anticoagulant for chronic atrial fibrillation. He denies picking his nose. He denies sneezing or blowing his nose prior to the bleeding. His oxygen is not humidified. He has had no recent nosebleed. Prior similar symptoms: Yes Recent Illness/Hospitalization: Yes (CHF) [facility] Medical History Other persistent atrial fibrillation New onset atrial flutter COVID Wears hearing aid in both ears Former smoker Coronary artery disease Peripheral vascular occlusive disease BPH (benign prostatic hyperplasia) Chronic kidney disease, stage 3 Atherosclerosis of coronary artery of [place] heart without angina pectoris Hyperlipidemia Lower extremity edema Venous insufficiency Malnutrition Delayed wound healing Osteomyelitis of ankle, left, acute Ulcer of left lower extremity with fat layer exposed Type 2 diabetes mellitus with diabetic polyneuropathy Anemia GERD (gastroesophageal reflux disease) Hypertension Home Medications ?Medication ?Instructions ?Recorded ?Last Taken ?Type insulin glargine 100 unit/mL 30 unit SQ DAILY diabetes 11/19/19 03/03/25 History subcutaneous solution multivitamin (Daily Multi-Vitamin 1 tab PO DAILY suppl ement 06/28/20 03/03/25 History tablet) sitagliptin phosphate 50 mg tablet 50 mg PO DAILY diab etes 11/02/21 03/03/25 History (Januvia) Held on 03/09/25. Instructions: Hold for at least 2 weeks until kidney function returns to baseline. Follow with PCP pravastatin 20 mg tablet 20 mg PO DAILY hyperlipidemi a 01/17/22 03/03/25 History cranberry 500 mg capsule 500 mg PO DAILY supplement 1 09/25/22 03/03/25 History docusate sodium 100 mg capsule 100 mg PO DAILY PRN sto ol softn 07/25/23 Unknown History (Colace) albuterol sulfate 90 mcg/actuation 2 puff inhalation Q 4H PRN 10/23/24 Unknown Rx aerosol inhaler shortness of breath or wheez ing #3 device umeclidinium 62.5 mcg-vilanterol 1 inh inhalation QDAY copd #60 ea 10/23/24 03/03/25 Rx 25 mcg/actuation powdr for inhalation (Anoro Ellipta) clopidogrel 75 mg tablet (Plavix) 75 mg PO DAILY atria l fibrillation 11/11/24 03/03/25 Rx #90 tabs apixaban 5 mg tablet (Eliquis) 2.5 mg (1/2 x 5 mg) PO BID 30 days 03/09/25 Unknown Rx #30 tabs diltiazem HCl 120 mg 120 mg PO DAILY 30 days #30 caps 03/09/25 Unknown Rx capsule,extended release 24 hr guaifenesin 1,200 mg tablet, 1,200 mg PO Q12H 7 days # 14 tabs 03/09/25 Unknown Rx extended release 12 hr tamsulosin 0.4 mg capsule 0.4 mg PO DAILY@1730 30 days #30 03/09/25 Unknown Rx caps amoxicillin 500 mg tablet 500 mg PO TID #14 tabs 03/15 Unknown Rx Allergy/AdvReac Type Severity Reaction Status Date / Time ibuprofen Allergy Severe Facial Verified 11/06/24 14:44 swelling (angioedema) Family History Brother Diabetes Father , Age 72 stomach ulcers No problems noted. Mother , Age 71 pancreatitis No problems noted. Sister , hepatitis C No problems noted. Surgical History H/O aorto-femoral bypass (~2009) History of transurethral resection of prostate Presence of aortocoronary bypass graft (~03/2013) Social History Smoking Status: Former smoker Tobacco: How many years used: 30 how long ago did patient quit smokin years ROS ROS ED Constitutional Constitutional ED: Denies chills, fever(s), subjective or sweats Eyes Eyes: Denies blurry vision or change in vision ENT ENT ED: Reports other Details: HPI narrative ; Denies ear pain, rhinorrhea or sore throat Cardiovascular Cardiovascular: Denies palpitations Respiratory/Chest Respiratory/Chest: Denies cough or dyspnea Hematologic/Lymphatic Hematologic/Lymphatic: Reports easy bruising EXAM Physical Exam Const Vital Signs: 03/15/25 16:58 Temperature 97.6 F L Temperature Source Oral Pulse Rate 100 Respiratory Rate 18 Blood Pressure 138/58 H Blood Pressure Mean 84 Pulse Ox 95 Oxygen Delivery Method Nasal Cannula Oxygen Flow Rate (L/min) 3 Positive well nourished and well developed General Appearance ED: well developed and NAD HEENT Reports moist mucous membranes HEENT Narrative: Blood noted left vestibule. Patient has a large clot in the center of Kiesselbach's plexus. There is no other abnormality noted. Negative for trauma or tenderness Eyes PERRL and EOMs intact bilaterally General Eye ED: Negative for pale conjunctiva or scleral icterus Neck no lymphadenopathy and No no JVD Resp normal respiratory effort and clear to auscultation bilaterally Cardio regular rate and no murmurs Rhythm: abnormal rhythm irregularly irregular Neuro oriented x3 and CN's II-XII intact bilaterally Psych mental status grossly normal MDM MDM MDM Narrative Medical decision making narrative: Patient has anterior nosebleed. This is made worse because he is on anticoagulant. According to patient and family has never seen ENT locally. Since he is on anticoagulant recommended treatment is to have a pack placed. Patient had a anterior Merisel pack placed left side without difficulty. He was observed for over 30 minutes. He had no bleeding. He will be discharged back to the nursing facility. Discharge Plan Triage Chief Complaint: Nosebleed ED Provider: Alex Matias Dx/Rx/DC Orders Clinical Impression: Acute anterior epistaxis, Anticoagulant long-term use, Antiplatelet or antithrombotic long-term use, Chronic a-fib, Chronic hypoxic respiratory failure Instructions: ED Epistaxis (Adult) Prescriptions: New amoxicillin 500 mg tablet 500 mg PO TID Qty: 14 0RF No Action multivitamin [Daily Multi-Vitamin] Tablet 1 tab PO DAILY pravastatin 20 mg tablet 20 mg PO DAILY docusate sodium [Colace] 100 mg capsule 100 mg PO DAILY PRN (Reason: stool softn) cranberry 500 mg capsule 500 mg PO DAILY Rx Instructions: administer with meals albuterol sulfate 90 mcg/actuation HFA aerosol inhaler 2 puff inhalation Q4H PRN (Reason: shortness of breath or wheezing) Qty: 3 3RF Rx Instructions: administer with spacer umeclidinium-vilanterol [Anoro Ellipta] 62.5-25 mcg/actuation blister with device 1 inh inhalation QDAY Qty: 60 3RF insulin glargine 100 UNIT/ML solution 30 unit SQ DAILY Januvia 50 mg Tablet 50 mg PO DAILY diltiazem HCl 120 mg Capsule,Extended Release 24hr 120 mg PO DAILY 30 Days Qty: 30 2RF Eliquis 5 mg Tablet 2.5 mg PO BID 30 Days Qty: 30 3RF guaifenesin 1,200 mg tablet extended release 12hr 1,200 mg PO Q12H 7 Days Qty: 14 6RF tamsulosin 0.4 mg Capsule 0.4 mg PO DAILY@1730 30 Days Qty: 30 2RF clopidogrel [Plavix] 75 mg tablet 75 mg PO DAILY Qty: 90 3RF Primary Care Provider: Luis Johnson Referrals: Devan Vasquez MD [Med Staff - Active Staff] - 3-5 Days Luis Johnson DO [Primary Care Provider] - Activity Restrictions/Additional Instructions: 1. Take amoxicillin as prescribed until gone 2. Call Dr. Devan Ruff's office tomorrow to be seen on or Sunday to have packing removed and reevaluated 3. Hold your next 4 doses of apixaban, Eliquis Print Language: [place] Disposition Disposition: Home, Self Care
[2025-03-15 18:32] VITALS: BP 168/71; PULSE 101; RESP 18; TEMP 36.7; O2SAT 93
[2025-03-15] MEDS: AMOXICILLIN 500 MG CAPSULE PO (18:35)
== END 2025-03-15 18:41 | disposition home or self-care (01) ==
PROVIDERS: Emergency Provider Emergency Medicine; PCP Family Medicine; Visit Provider Emergency Medicine
DX: R04.0 Epistaxis (principal); J96.11 Chronic respiratory failure with hypoxia; I13.0 Hypertensive heart and chronic kidney disease with heart failure and stage 1 through stage 4 chronic kidney disease, or unspecified chronic kidney disease; I50.9 Heart failure, unspecified; I48.20 Chronic atrial fibrillation, unspecified; E11.42 Type 2 diabetes mellitus with diabetic polyneuropathy; E11.22 Type 2 diabetes mellitus with diabetic chronic kidney disease; N18.30 Chronic kidney disease, stage 3 unspecified; E78.5 Hyperlipidemia, unspecified; I25.10 Atherosclerotic heart disease of native coronary artery without angina pectoris; Z79.01 Long term (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 of anticoagulants; Z87.891 Personal history of nicotine dependence; Z86.16 Personal history of COVID-19
CPT/HCPCS: 30901; 99283

== ENCOUNTER → 2025-03-18 | Outpatient (CLI) | payer MEDICARE, OTHER, SELFPAY ==
[2025-03-18 16:08] LABS: Hematocrit 32.6 % (40-54); Hemoglobin 9.7 g/dL (13.0-16.5); Immature Granulocytes Count 0.090 X10^3/uL (0.0-0.0); Mean Corp Hgb Conc 29.8 g/dL (32-36); Mean Corpuscular Volume 90.1 fL (80-94); Mean Platelet Vol. 10.4 fl (6.2-12.0); NRBC Flagged by Analyzer 0 % (0-5); Platelet Count 252 K/mm3 (150-450); RBC Distribution Width CV 16.4 % (11.6-14.6); RBC Distribution Width SD 53.8 fl (35.1-43.9); Red Blood Count 3.62 M/mm3 (4.6-6.2); White Blood Count 7.9 K/mm3 (4.4-11.0)
[2025-03-18 16:22] LABS: Anion Gap 11 (5-15); BUN 24 mg/dL (4-19); BUN/Creat Ratio 14.8 RATIO (10-20); Calcium,Total 9.5 mg/dL (7.6-11.0); Carbon Dioxide 26.7 mmol/L (21.0-32.0); Chloride 99 mmol/L (98-108); Glucose 223 mg/dL (70-99); Potassium 5.2 mmol/L (3.3-5.1)
== END | disposition home or self-care (01) ==
LOC: BFHLAB 11:53
PROVIDERS: PCP Family Medicine; Visit Provider Family Medicine
DX: N18.4 Chronic kidney disease, stage 4 (severe) (principal); D64.9 Anemia, unspecified
CPT/HCPCS: 36415; 80048; 85025

== ENCOUNTER → 2025-03-27 | Outpatient (CLI) | payer MEDICARE, OTHER, SELFPAY | END | disposition home or self-care (01) | LOC: PSN 08:38 | PROVIDERS: PCP Family Medicine; Referring Provider Physician Assistant Medical; Visit Provider Physician Assistant Medical | DX: I48.91 Unspecified atrial fibrillation (principal) | CPT/HCPCS: 93225; 93226 ==

== ENCOUNTER → 2025-04-02 | Outpatient (CLI) | payer MEDICARE, OTHER, SELFPAY ==
[2025-04-02 12:20] LABS: Hematocrit 30.6 % (40-54); Hemoglobin 9.2 g/dL (13.0-16.5); Immature Granulocytes Count 0.050 X10^3/uL (0.0-0.0); Mean Corp Hgb Conc 30.1 g/dL (32-36); Mean Corpuscular Volume 89.2 fL (80-94); Mean Platelet Vol. 10.6 fl (6.2-12.0); NRBC Flagged by Analyzer 0 % (0-5); Platelet Count 210 K/mm3 (150-450); RBC Distribution Width CV 17.1 % (11.6-14.6); RBC Distribution Width SD 55.3 fl (35.1-43.9); Red Blood Count 3.43 M/mm3 (4.6-6.2); White Blood Count 8.7 K/mm3 (4.4-11.0)
[2025-04-02 13:15] LABS: Anion Gap 10 (5-15); BUN 35 mg/dL (4-19); BUN/Creat Ratio 16.4 RATIO (10-20); Calcium,Total 9.2 mg/dL (7.6-11.0); Carbon Dioxide 27.8 mmol/L (21.0-32.0); Chloride 99 mmol/L (98-108); Glucose 185 mg/dL (70-99); Potassium 5.6 mmol/L (3.3-5.1); Pro- Brain NATRIURETIC PEPTIDE 2526 pg/mL (<=1800)
== END | disposition home or self-care (01) ==
LOC: HHLAB 11:47
PROVIDERS: Physician Assistant Medical; PCP Family Medicine
DX: I48.19 Other persistent atrial fibrillation (principal); I50.33 Acute on chronic diastolic (congestive) heart failure; N18.30 Chronic kidney disease, stage 3 unspecified; R06.02 Shortness of breath
CPT/HCPCS: 80048; 83880; 85025

== ENCOUNTER 2025-04-05 16:40 | Inpatient (IN) | payer MEDICARE, OTHER, SELFPAY ==
[2025-04-05] VITALS (16 sets, daily range): BP systolic 95–153; BP diastolic 57–112; PULSE 68–103; RESP 19–36; TEMP 36.4–36.9; O2SAT 91–100; BMI 28.0; BMI 26.8
--- OUTSIDE RECORDS SUMMARY | 2025-04-05 16:47 | XMS RPT_ITS | CCD ---
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 Tonio Fajardo Primary Care Provider [phone] Dr. Tonio Fajardo Referring Provider [phone] Issa Looney Attending Provider [phone] Tonio Fajardo DO Primary Care Provider Dr. Tyrell Uriarte Attending Provider Dr. Tonio Fajardo Primary Care Provider [phone] Dr. Tonio Fajardo Referring Provider Brittny CHRONOMETER ADJUSTER, CHRONOMETER ADJUSTER-C Lorie Attending Provider Dr. Russ Zamora Attending Provider Renard CHRONOMETER ADJUSTER, CHRONOMETER ADJUSTER-C Bonny E Attending Provider [phone] Renard CHRONOMETER ADJUSTER, CHRONOMETER ADJUSTER-C Bonny E Referring Provider Renard CHRONOMETER ADJUSTER, CHRONOMETER ADJUSTER-C Bonny E Other Provider Dr. Srini Choi Attending Provider Dr. Srini Choi Referring Provider Dr. Srini Choi Other Provider Dr. Mateo Shahid Attending Provider Dr. Issa Looney Attending Provider Dr. Kenyon Flores Referring Provider Unava ilable Dr. Srini Choi Referring Provider Dr. Tevin Allen Attending Provider Dr. Tonio Fajardo Primary Care Provider [phone] Dr. Tonio Fajardo Referring Provider Dr. Tyrell Uriarte Attending Provider Dr. Issa Looney Attending Provider Dr. Kenyon Flores Referring Provider Unava mp Mart CHRONOMETER ADJUSTER, CHRONOMETER ADJUSTER-C Lorie Attending Provider Dr. Russ Zamora Attending Provider Renard CHRONOMETER ADJUSTER, CHRONOMETER ADJUSTER-C Bonny E Attending Provider [phone] Renard CHRONOMETER ADJUSTER, CHRONOMETER ADJUSTER-C Bonny E Referring Provider [phone] Renard CHRONOMETER ADJUSTER, CHRONOMETER ADJUSTER-C Bonny E Other Provider Dr. Srini Choi Attending Provider Dr. Srini Choi Referring Provider Dr. Srini Choi Other Provider Dr. Mateo Shahid Attending Provider Roof CHRONOMETER ADJUSTER, CHRONOMETER ADJUSTER-C Iker Stephens Attending Provider Tonio Fajardo DO Primary Care Provider JESSIE RODRIGUEZ Referring Unavailable TONIO FAJARDO Primary Care Unavailable TONIO FAJARDO Primary Care Unavailable Dr. Tonio Fajardo Primary Care Provider Dr. Tonio Fajardo Referring Provider Dr. Tonio Fajardo Primary Care Provider Renard CHRONOMETER ADJUSTER, CHRONOMETER ADJUSTER-C Bonny E Attending Provider [phone] Renard CHRONOMETER ADJUSTER, CHRONOMETER ADJUSTER-C Bonny E Referring Provider Renard CHRONOMETER ADJUSTER, CHRONOMETER ADJUSTER-C Bonny E Other Provider Dr. Tonio Fajardo Referring Provider Dr. Russ Zamora Attending Provider Dr. Tonio Fajardo Primary Care Provider Dr. Srini Choi Attending Provider Dr. Srini Choi Referring Provider Renard CHRONOMETER ADJUSTER, CHRONOMETER ADJUSTER-C Bonny E Attending Provider [phone] Renard CHRONOMETER ADJUSTER, CHRONOMETER ADJUSTER-C Bonny E Referring Provider Renard CHRONOMETER ADJUSTER, CHRONOMETER ADJUSTER-C Bonny E Other Provider Dr. Tonio Fajardo Referring Provider Dr. Russ Zamora Attending Provider Dr. Tonio Fajardo Primary Care Provider Renard CHRONOMETER ADJUSTER, CHRONOMETER ADJUSTER-C Bonny E Attending Provider [phone] Renard CHRONOMETER ADJUSTER, CHRONOMETER ADJUSTER-C Bonny E Referring Provider Renard CHRONOMETER ADJUSTER, CHRONOMETER ADJUSTER-C Bonny E Other Provider Dr. Tonio Fajardo Referring Provider Dr. Russ Zamora Attending Provider Dr. Srini Choi Attending Provider Dr. Tyrell Uriarte Attending Provider Dr. Tonio Fajardo Primary Care Provider Renard CHRONOMETER ADJUSTER, CHRONOMETER ADJUSTER-C Bonny E Attending Provider Renard CHRONOMETER ADJUSTER, CHRONOMETER ADJUSTER-C Bonny E Referring Provider [phone] Renard CHRONOMETER ADJUSTER, CHRONOMETER ADJUSTER-C Bonny E Other Provider Dr. Tonio Fajardo Primary Care Provider Renard CHRONOMETER ADJUSTER, CHRONOMETER ADJUSTER-C Bonny E Attending Provider [phone] Renard CHRONOMETER ADJUSTER, CHRONOMETER ADJUSTER-C Bonny E Referring Provider [phone] Renard CHRONOMETER ADJUSTER, CHRONOMETER ADJUSTER-C Bonny E Other Provider [phone] Dr. Tonio Fajardo Primary Care Provider Renard CHRONOMETER ADJUSTER, CHRONOMETER ADJUSTER-C Bonny E Attending Provider Renard CHRONOMETER ADJUSTER, CHRONOMETER ADJUSTER-C Bonny E Referring Provider Renard CHRONOMETER ADJUSTER, CHRONOMETER ADJUSTER-C Bonny E Other Provider Dr. Tonio Fajardo Referring Provider Dr. Tonio Fajardo Primary Care Provider Renard CHRONOMETER ADJUSTER, CHRONOMETER ADJUSTER-C Bonny E Attending Provider Renard CHRONOMETER ADJUSTER, CHRONOMETER ADJUSTER-C Bonny E Referring Provider [phone] Renard CHRONOMETER ADJUSTER, CHRONOMETER ADJUSTER-C Bonny E Other Provider Dr. Tonio Fajardo Primary Care Provider Renard CHRONOMETER ADJUSTER, CHRONOMETER ADJUSTER-C Bonny E Attending Provider Renard CHRONOMETER ADJUSTER, CHRONOMETER ADJUSTER-C Bonny E Referring Provider Renard CHRONOMETER ADJUSTER, CHRONOMETER ADJUSTER-C Bonny E Other Provider Dr. Tonio Fajardo Primary Care Provider Renard CHRONOMETER ADJUSTER, CHRONOMETER ADJUSTER-C Bonny E Attending Provider [phone] Renard CHRONOMETER ADJUSTER, CHRONOMETER ADJUSTER-C Bonny E Referring Provider [phone] Renard CHRONOMETER ADJUSTER, CHRONOMETER ADJUSTER-C Bonny E Other Provider Dr. Tonio Fajardo Referring Provider Dr. Russ Zamora Attending Provider Dr. Tonio Fajardo Primary Care Provider Renard CHRONOMETER ADJUSTER, CHRONOMETER ADJUSTER-C Bonny E Attending Provider [phone] Renard CHRONOMETER ADJUSTER, CHRONOMETER ADJUSTER-C Bonny E Referring Provider Renard CHRONOMETER ADJUSTER, CHRONOMETER ADJUSTER-C Bonny E Other Provider Dr. Francisco Javier Lozada Attending Provider Dr. Joaquim Suárez Referring Provider Dr. Tonio Fajardo Primary Care Provider Renard CHRONOMETER ADJUSTER, CHRONOMETER ADJUSTER-C Bonny E Attending Provider Renard CHRONOMETER ADJUSTER, CHRONOMETER ADJUSTER-C Bonny E Referring Provider Renard CAMPUZANO, CHRONOMETER ADJUSTER-C Bonny Melendez Other Provider Dr. Tonio Fajardo Referring Provider Dr. Russ Zamora Attending Provider Dr. Francisco Javier Lozada Attending Provider Dr. Joaquim Suárez Referring Provider Dr. Tonio Fajardo Primary Care Provider Brittny CHRONOMETER ADJUSTER, CHRONOMETER ADJUSTER-C Lorie Attending Provider RICKIE Alejandra Attending Provider Dr. Tonio Fajardo Primary Care Provider [phone] Tonio Fajardo Referring Provider Dr. Issa Looney Attending Provider [phone] Tonio Fajardo Primary Care Provider [phone] Tonio Fajardo Referring Provider Dr. Russ Zamora Attending Provider Dr. Tyrell Uriarte Attending Provider Tonio Fajardo DO Primary Care Provider Dr. Tonio Fajardo DO Primary Care Provider Jose Armando DPMDr. March Attending Provider Jose Armando COLINMDr. March Referring Provider Dr. Tonio Fajardo DO Referring Provider Leslie Alejandra Attending Provider Leslie Alejandra Referring Provider Brittny CAMPUZANO-CLorie Attending Provider Brittny CHRONOMETER ADJUSTER-C, Lorie Referring Provider Brittny CHRONOMETER ADJUSTER-C, Lorie Other Provider [phone] Tyrell Uriarte DO Attending Provider [phone] Tonio Fajardo DO Attending Provider Sera STRATTON, Dr. Solano Attending Provider Sera STRATTON, Dr. Solano Referring Provider Scotty MCGEE, Dr. Elizalde Primary Care Provider [place] , Dr. Milligan Other Provider Scotty MCGEE, Dr. Elizalde Primary Care Provider Scotty MCGEE, Dr. Elizalde Referring Provider Sera STRATTON, Dr. Solano Attending Provider Sera STRATTON, Dr. Solano Referring Provider Don STRATTON, Dr. Perez Emergency Provider Lindsey DO, Dr. Petersen Admit Provider Unavail able Lindsey DO, Dr. Petersen Attending Provider Unav ailable Scotty [...] Shadi STRATTON, Dr. Graham Other Provider Michael CHRONOMETER ADJUSTER-C, Iker Stephens Other Provider Leslie Alejandra Other Provider Tadeo Fink Other Provider Grzegorz STRATTON, Dr. Leos Other Provider [phone] Peter STRATTON, Dr. Amador Attending Provider Jailyn STRATTON, Dr. Dorsey Attending Provider Florencio STRATTON, Dr. Johnson Emergency Provider Scotty MCGEE, Dr. Elizalde Referring Provider [phone] Leslie Alejandra Attending Provider [phone] Florencio STRATTON, Dr. Johnson Attending Provider Scotty MCGEE, Dr. Elizalde Attending Provider [phone] Leslie Alejandra Referring Provider [phone] Carmelina Parra Attending Provider Unavailable Carmelina Parra Referring Provider Unavailable Scotty, Tonio Attending Unavailable Scotty, Tonio Primary Care Unavailable Scotty, Tonio Primary Care Unavailable Leslie Alejandra Referring Unavail able Leslie Alejandra Attending Unavail able Joaquim Suárez Attending Unavailable Joaquim Suárez Referring Unavailable Scotty, Tonio Primary Care Unavailable Mart CHRONOMETER ADJUSTER, Lorie Referring Unavailable Mart CHRONOMETER ADJUSTER, Lorie Consulting Unavailable Scotty, Tonio Primary Care Unavailable Tyrell Uriarte Attending Unavailable Brittny CHRONOMETER ADJUSTER, Lorie Referring Unavailable Brittny CHRONOMETER ADJUSTERLorie Attending Unavailable Scotty, Tonio Primary Care Unavailable Russ Zamora Referring Unavailable Scotty, Tonio Primary Care Unavailable Russ Zamora Attending Unavailable Russ Zamora Referring Unavailable Scotty, Tonio Primary Care Unavailable Russ Zamora Attending Unavailable Leslie Alejandra Referring Unavail able Leslie Alejandra Attending Unavail able Scotty, Tonio Primary Care Unavailable Scotty, Tonio Primary Care Unavailable Deric Lantigua Attending Unavailable Nicola Lindsey Consulting Unavailable Nicola Lindsey Admitting Unavailable Amro, Ahmed Consulting Unavailable Jabri Ahmad Consulting Unavailable Mostafa, Nicolette Consulting Unavailable Marjorie Green Consulting Unavailable Martin Vivas Consulting Unavailable Joelle, Jose Consulting Unavailable Aayush, Issa Consulting Unavailable Chago Miller Consulting Unavailable Willian Glaser Consulting Unavailable Nagajothi, Nagapradee Consulting Unavailabl e Satti, Reinaldo Consulting Unavailable Worth, Santos Consulting Unavailable Roof CHRONOMETER ADJUSTER, Iker Stephens Consulting Unavailable Leslie Alejandra Consulting Unavail able Tadeo Thakkar Consulting Unavailable Deric Lantigua Consulting Unavailable Nicola Lindsey Attending Unavailable Marjorie Green Attending Unavailable Willian Glaser Attending Unavailable Scotty, Tonio Referring Unavailable Scotty, Tonio Primary Care Unavailable Scotty, Tonio Attending Unavailable Russ Zamora Referring Unavailable Scotty, Tonio Primary Care Unavailable Srini Choi Consulting Unavailable Russ Zamora Attending Unavailable Scotty, Tonio Referring Unavailable Scotty, Tonio Primary Care Unavailable Russ Zamora Attending Unavailable PeterMarjorie Attending Unavailable Scotty, Tonio Primary Care Unavailable Scotty, Tonio Primary Care Unavailable Nicola Lindsey Consulting Unavailable Deric Lantigua Attending Unavailable Nicola Lindsey Admitting Unavailable Amro, Ahmed Consulting Unavailable Jabrmingo Ahmad Consulting Unavailable MostafTutu maldonadoraf Consulting Unavailable Marjorie Green Consulting Unavailable Martin Vivas Consulting Unavailable Jose Lai Consulting Unavailable Aayush, Plato Consulting Unavailable Chago Miller Consulting Unavailable Willian Glaser Consulting Unavailable Nagajothi, Nagapradee Consulting Unavailabl e Satti, Reinaldo Consulting Unavailable Worth, Santos Consulting Unavailable Roof CHRONOMETER ADJUSTER, Iker Stephens Consulting Unavailable Leslie Alejandra Consulting Unavail able Tadeo Thakkar Consulting Unavailable Scotty, Tonio Primary Care Unavailable AidaCarmelina Referring Unavailable Carmelina Parra Attending Unavailable Scotty, Tonio Referring Unavailable Leslie Alejandra Attending Unavail able Scotty, Tonio Primary Care Unavailable Scotty, Tonio Primary Care Unavailable Alex Matias Attending Unavailable Scotty, Tonio Referring Unavailable Leslie Alejandra Attending Unavail able Scotty, Tonio Primary Care Unavailable Scotty, Tonio Referring Unavailable Lorie Mart NP Attending Unavailable Scotty, Tonio Primary Care Unavailable Scotty, Tonio Referring Unavailable Scotty, Tonio Primary Care Unavailable Russ Zamora Attending Unavailable Scotty, Tonio Primary Care Unavailable Joaquim Suárez Attending Unavailable Joaquim Suárez Referring Unavailable Allergies Allergy Classification Reported Allergen(s) Allergy Type Date of Onset Reaction(s) Facility (20 sources) Ibuprofen; 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: [IBUPROFEN] Drug Allergy 2 Shortness of Breath [facility] Work Phone: (1 source) Ibuprofen Drug Allergy [address] [facility] Repository Medications Current Medications Medication Drug Class(es) Dates Sig (Normalized) Sig (Original) amoxicillin 500 mg oral tablet (4 sources) Penicillin-class Antibacterial Start: 03-15-2025 take 1 tablet by mouth three times daily Amoxicillin 500 mg tablet Active 500 mg PO THREE TIMES A DAY 14 0 March 15, 2025 12:00am apixaban 5 mg oral tablet (20 sources) Factor Xa Inhibitor Start: 03-09-2025 take 2.5 mg by mouth twice daily Apixaban (Eliquis) 5 mg Tablet Active 2.5 mg PO TWICE A DAY 30 30 March 09, 2025 12:00am Start: 07-26-2023 End: 03-09-2025 take 1 tablet by mouth twice daily Apixaban (Eliquis) 5 mg tablet Discontinued 5 mg PO TWICE A DAY 180 August 04, 2024 8:56am March 09, 2025 12:35pm atrial fibrillation cholecalciferol 0.125 mg oral capsule (20 sources) [...] 27, 2019 12:36pm take 1 capsule by [facility] once daily cholecalciferol, vitamin D3, (VITAMIN D-3) 10 mcg (400 unit) cap Take 400 Units by mouth once daily. Active Comment on above: Take 400 Units by [facility] once daily. colestipol hydrochloride 1000 mg oral tablet (13 sources) Bile Acid Sequestrant Start: 0 colestipol (COLESTID) 1 gram tablet 03/27/2022 Active Cranberry (12 sources) Non-Standardized Food Allergenic Extract, Non-Standardized Plant Allergenic Extract Start: 3 take 1 capsule by mouth once daily at mealtime Cranberry 500 mg capsule Active 500 mg PO DAILY July 25, 2023 1:00am supplement administer with meals Start: 07-25-2023 take 1 capsule by [facility] once daily at mealtime Cranberry 500 mg [...] July 25, 2023 12:00am administer with meals 24 hr dilTIAZem hydrochloride 120 mg extended release oral capsule (5 sources) Calcium Channel Leyla Start: 03-09-2025 take 1 capsule by mouth once daily Diltiazem Hcl 120 mg Capsule,Extended Release 24hr Active 120 mg PO DAILY 30 30 2 March 09, 2025 12:00am docusate sodium 100 mg oral capsule (15 sources) Start: 07-25-2023 take 1 capsule by mouth once daily as needed Docusate Sodium (Colace) 100 mg capsule Active 100 mg PO DAILY as needed for stool softn July 25, 2023 1:00am Start: 04-14-2022 take 1 capsule by [facility] once daily as needed Docusate Sodium (Colace) 100 mg Capsule Active 100 MG PO DAILY NEEDED April 14, 2022 12:00am fish oil/borage/flax/om3,6,9 1 (OMEGA 3-6-9 COMPLEX ORAL) (5 sources) fish oil/borage/ flax/om3,6,9 1 (OMEGA 3-6-9 COMPLEX ORAL) Take by mouth. Active fish oil/borage/ flax/om3,6,9 1 (OMEGA 3-6-9 COMPLEX ORAL) Take by mouth. 0 Active Comment on above: Take by mouth. Fish,Bora,Flax Oils-Om3,6,9no1 ([place] 3-6-9) 1,200 mg Capsule (8 sources) Start: 11-02-2021 take 1 capsule by mouth twice daily Fish,Bora,Flax Oils-Om3,6,9no1 ([place] 3-6-9) 1,200 mg Capsule Active 1 CAP PO TWICE A DAY November 02, 2021 1:31pm Start: 11-02-2021 take 1 capsule by mo [facility] twice daily Fish,Bora,Flax Oils-Om3,6,9no1 ([place] 3-6-9) 1,200 mg Capsule Active 1 CAP [...] guaiFENesin 1200 mg extended release oral tablet (14 sources) Start: 10-23-2024 End: 03-09-2025 take 1 tablet by mouth every twelve hours Guaifenesin 1,200 mg tablet extended release 12hr Active 1200 mg PO Q12H 14 7 6 March 09, 2025 12:38pm 3 ml insulin glargine 100 unt/ml pen [...] 2019 3:49pm Insulin Glargine 100 UNIT/ML solution (9 sources) Start: 11-19-2019 inject 30 [IU] by subcutaneous injection once daily Insulin Glargine 100 UNIT/ML solution Active 30 U SQ DAILY November 19, 2019 12:00am diabetes Start: 11-19-2019 inject 40 [IU] by frias bcutaneous injection once daily Insulin Glargine 100 UNIT/ML solution Active 40 U SQ DAILY November 19, 2019 12:00am Magic Mouth Wash (Bmx) (6 sources) Start: [...] mucosal solution 60 mL; Per 180 mL 24 hr metoprolol succinate 25 mg extended release oral tablet (20 sources) beta-Adrenergic Leyla Start: 04-01-2025 take 1 tablet by mouth once daily Metoprolol Succinate 25 mg tablet extended release 24 hr Active 25 mg PO daily April 01, 2025 12:00am Start: 07-27-2023 End: 03-09-2025 Metoprolol Tartrate 25 mg ta blet Discontinued 12.5 mg PO TWICE A DAY 45 7 June 18, 2024 4:35pm March 09, 2025 12:36pm hypertension Start: 07-27-2023 take 12.5 mg by mout [...] Metoprolol Succinate Discontinued 12.5 MG PO DAILY 90 August 06, 2020 9:55am January 06, 2021 2:32pm Start: 06-18-2013 End: 11-19-2019 Metoprolol Tartrate 25 mg ta blet Discontinued 12.5 mg PO TWICE A DAY 180 January 30, 2019 12:43pm June 27, 2019 12:37pm Start: 06-18-2013 End: 11-19-2019 take 12.5 mg by mouth twice daily Metoprolol Tartrate Discontinued 12.5 MG PO TWICE A DAY 180 January 30, 2019 12:43pm June 27, 2019 12:37pm Multivitamin (Daily Multi-Vitamin) tablet (20 sources) Start: [...] 03, 2013 12:00am June 27, 2019 12:37pm tamsulosin hydrochloride 0.4 mg oral capsule (20 sources) alpha-Adrenergic Leyla Start: 03-09-2025 take 1 capsule by mouth once daily Tamsulosin 0.4 mg Capsule Active 0.4 mg PO DAILY@1730 30 30 2 March 09, 2025 12:00am Start: 03-21-2017 End: 03-06-2018 Tamsulosin 0.4 MG capsule Discontinued March 21, 2017 12:00am March 06, 2018 3:46pm Start: 03-21-2017 End: 03-06-2018 Tamsulosin Discontinued 2016 12:00am March 06, 2018 3:46pm Start: 08-25-2013 End: 11-26-2013 take 1 capsule by mouth once daily Tamsulosin 0.4 MG capsule Discontinued 0.4 mg PO DAILY August 25, 2013 1:00am November 26, 2013 10:41am 7 actuat umeclidinium 0.0625 mg/actuat / vilanterol 0.025 mg/actuat dry powder inhaler (15 sources) Anticholinergic, beta2-Adrenergic Agonist Start: 10-23-2024 Umeclidinium-Vilanterol [...] ro Ellipta) 62.5-25 mcg/actuation blister with device (6 sources) Start: 10-23-2024 Umeclidinium-V ilanterol (Anoro Ellipta) 62.5-25 [...] 07, 2014 12:00am November 19, 2019 3:48pm [id number] 200 actuat albuterol 0.09 mg/actuat metered dose inhaler (20 sources) beta2-Adrenergic Agonist Start: 10-31-2023 End: 10-23-2024 Albuterol Sulfate 90 mcg/actuation HFA aerosol inhaler Discontinued 2 NMA INHALATION Q4H as needed for shortness of breath or wheezing 3 February 15, 2024 11:25am October 23, 2024 3:35pm administer with spacer Start: 10-31-2023 take 1 puff(s) by in halation every four hours Albuterol Sulfate Active 2 PUFF INHALATION Q4H 3 October 31, 2023 12:00am administer with spacer [...] Discontinued 1 TABLET PO Q12H 28 14 January 22, 2023 [...] Amoxicillin-Pot Clavulanate Discontinued 1 TABLET PO Q12H 14 May 24, 2022 12:00am July 19, 2022 3:25pm ascorbic acid 500 mg oral capsule (20 [...] 2017 2:47pm cephalexin 500 mg oral capsule (17 sources) Cephalosporin Antibacterial Start: 05-02-2023 End: 06-08-2023 [...] Comment on above: Take 1 capsule by [facility] three times daily for 10 days. ciprofloxacin 250 mg oral tablet (20 sources) Quinolone Antimicrobial Start: 08-28-19 End: 11-27-19 14 take 1 tablet by mouth twice daily Ciprofloxacin Hcl 250 MG tablet Discontinued 250 mg PO TWICE A DAY 10 August 28, 2013 1:00am November 26, 2013 10:42am clopidogrel 75 mg oral tablet (20 sources) [id number] Platelet Inhibitor Start: 06-28-20 End: 03-17-20 take 1 tablet by mouth once daily Clopidogrel (Plavix) 75 mg tablet Discontinued 75 mg PO DAILY 90 November 11, 2024 3:07pm March 17, 2025 1:36pm atrial fibrillation Start: 10-24-2018 End: 11-19-2019 take 1 tablet by mouth once daily Clopidogrel (Plavix) 75 mg tablet Discontinued 75 mg PO DAILY 90 3 June 27, 2019 12:37pm November 19, 2019 3:48pm 0.3 ml darbepoetin scott 0.2 mg/ml prefilled syringe (20 sources) Erythropoiesis-stimulating Agent Start: 06-18-2013 End: 08-25-2013 Darbepoetin Scott In Polysorbat (Aranesp (In Polysorbate)) 60 MCG/0.3 ML Ml Discontinued 60 ug SC EVERY WEEK June 18, 2013 12:00am August 25, 2013 10:01am diphenhydrAMINE hydrochloride 25 mg oral capsule (20 sources) Histamine-1 Receptor Antagonist Start: 12-03-2013 End: 03-21-2017 take 1 capsule by mouth three times daily as needed Diphenhydramine Hcl (Benadryl) 25 MG capsule Discontinued 25 mg PO 3 TIMES DAILY NEEDED as needed for Itching December 03, 2013 12:00am March 21, 2017 2:47pm doxycycline hyclate 100 mg oral capsule (9 sources) Tetracycline-class Drug Start: 04-01-2024 End: 09-25-2024 take 1 capsule by mouth twice daily Doxycycline Hyclate 100 mg capsule Discontinued 100 mg PO TWICE A DAY 28 14 0 April 01, 2024 12:00am September 25, 2024 2:02pm dutasteride 0.5 mg oral capsule (20 sources) 5-alpha Reductase Inhibitor Start: 08-25-2013 End: 11-26-2013 take 1 capsule by mouth once daily Dutasteride (Avodart) 0.5 MG capsule Discontinued 0.5 mg PO DAILY August 25, 2013 1:00am November 26, 2013 10:41am Fish Oil-Fat Acid Comb.8-Hb137 ([place] 3-6-9 1,200 Mg Softgel) 1,200 MG capsule (20 sources) Start: 12-03-2013 End: 03-21-2017 Fish Oil-Fat Acid Comb.8-Hb137 ([place] 3-6-9 1,200 Mg Softgel) 1,200 MG capsule Discontinued 1000 MG PO TWICE A DAY December 03, 2013 11:07am March 21, 2017 2:47pm Start: 12-03-2013 End: 03-21-2017 Fish Oil-Fat Acid Comb.8-Hb1 37 ([place] 3-6-9 1,200 Mg Softgel) 1,200 MG capsule Discontinued 1000 mg PO TWICE A DAY December 03, 2013 12:00am March 21, 2017 2:47pm Start: 12-03-2013 End: 03-21-2017 Fish Oil-Fat Acid Comb.8-Hb1 37 ([place] 3-6-9 1,200 Mg Softgel) 1,200 MG capsule Discontinued 1000 MG PO TWICE A DAY December 02, 2013 11:00pm March 21, 2017 1:47pm Start: 12-03-2013 End: 03-21-2017 Fish Oil-Fat Acid Comb.8-Hb1 37 ([place] 3-6-9 1,200 Mg Softgel) 1,200 MG capsule [...] 3:48pm Fish,Bora,Flax Oils-Om3,6,9n o1 1,200 MG capsule (9 sources) Start: 03-21-2017 End: 11-19-2019 Fish,Bora,Flax Oils-Om3,6,9n o1 1,200 MG capsule Discontinued March 21, 2017 12:00am November 19, 2019 3:48pm Qbaxkgxkzkj-Wlrcrbxbt-Mjyzku er (9 sources) Start: 02-15-2024 End: 09-25-2024 Maqwriadvna-Jhrcsulhn-Hqcicp er (Trelegy Ellipta) 200-62.5-25 mcg blister with device Discontinued 1 NMA INHALATION DAILY 3 February 15, 2024 12:00am September 25, 2024 2:02pm Start: 02-15-2024 End: 09-25-2024 Xserhafukmj-Cntwjgyfj-Eurpfb er (Trelegy Ellipta) 200-62.5-25 mcg blister with [...] 12:00am August 25, 2013 10:01am lactobacillus acidophilus [id number] unt oral capsule (20 sources) Start: 05-24-2022 End: 07-19-2022 take 1 capsule by mouth once daily Lactobacillus Acidophilus (Probiotic Gold Acidophilus) 1 billion cell capsule Discontinued 1000 NMA PO DAILY 21 0 May 24, 2022 12:00am July 19, 2022 3:27pm levoFLOXacin 250 mg oral tablet (20 sources) Quinolone Antimicrobial Start: 02-16-2020 End: 02-26-2020 take 1 tablet by mouth once daily, then take 2 tablets by mouth once daily Levofloxacin 250 MG tablet Discontinued 250 mg PO DAILY 11 February 16, 2020 12:00am February 25, 2020 [...] 22, 2017 1:00am October 24, 2018 3:15pm lisinopril 2.5 mg oral tablet (20 sources) Angiotensin Converting Enzyme Inhibitor Start: 10-16-2022 End: 10-20-2022 Lisinopril Discontinued MG PO October 16, 2022 1:00am October 20, 2022 10:38am Start: 02-14-2022 End: 03-09-2025 take 1 tablet by mouth once daily Lisinopril 2.5 mg tablet Discontinued 2.5 mg PO DAILY 3 February 02, 2025 9:37am March 09, 2025 12:36pm hypertension Start: 06-28-2020 End: 11-29-2021 take 1 tablet by mouth once daily Lisinopril 2.5 mg tablet Discontinued 2.5 mg PO DAILY September 13, 2020 10:40am November 29, 2021 [...] 17, 2014 12:00am August 23, 2017 5:32pm lutein 20 mg oral capsule (20 sources) [...] Active Comment on above: Take by mouth. Multivitamin preparation (20 sources) Start: 06-27-2019 End: [...] 1:00am November 19, 2019 3:50pm Multivitamin tablet (9 sources) Start: 06-27-2019 End: 11-19-2019 Multivitamin tablet Discontinued 1 {tbl} PO DAILY June 27, 2019 1:00am November 19, 2019 3:50pm mupirocin 0.02 mg/mg topical ointment (18 sources) RNA Synthetase Inhibitor Antibacterial Start: 01-22-2023 End: 06-08-2023 Mupirocin 2 % ointment Discontinued 1 NMA TOPICAL DAILY 15 14 1 January 22, 2023 12:00am June 08, 2023 [...] August 25, 2013 10:01am polyethylene glycol 3350 72289 mg powder for oral solution (20 sources) [...] 18, 2013 12:00am August 25, 2013 10:01am SITagliptin 50 mg oral tablet (20 sources) Dipeptidyl Peptidase 4 Inhibitor Start: 11-02-2021 take 1 tablet by mouth once daily Sitagliptin Phosphate (Januvia) 50 mg Tablet Active 50 mg PO DAILY November 02, 2021 12:00am diabetes On Hold: Hold for at least 2 weeks until kidney function returns to baseline. Follow with PCP Start: 02-17-2014 End: 04-08-2014 take 1 tablet by mouth once daily Sitagliptin Phosphate (Januvia) 50 MG tablet Discontinued 50 mg PO DAILY February 17, 2014 12:00am April 08, 2014 2:25pm Problems Active Problems Problem Classification Problem Date [...] Irregular heart beat; 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: [Cardiac arrhythmia, unspecified] Onset: 04-02-2025 07-25-2023 Chronic Cardiac dysrhythmias (20 sources) Bradycardia; 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: [Bradycardia, unspecified] 01-06-2021 Episodic Chronic kidney disease (20 sources) Chronic kidney disease stage 3; 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: [Stage 3 chronic kidney disease] Onset: 03-27-2025 08-25-2020 Chronic Chronic kidney disease (5 sources) Chronic kidney disease Chronic obstructive pulmonary disease and bronchiectasis (20 sources) Chronic obstructive lung disease; 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: [Chronic obstructive pulmonary disease, unspecified] Onset: 10-30-2024 12-13-2022 Chronic Chronic ulcer of skin (20 sources) 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 without evidence of necrosis; 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: [Ulcer of right foot with bone involvement without evidence of necrosis] Chronic Congestive heart failure; nonhypertensive (20 sources) Acute exacerbation of chronic congestive heart failure; 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: [Heart failure, unspecified] Onset: 04-03-2025 03-04-2025 Chronic Coronary atherosclerosis and other heart disease (20 sources) Coronary atherosclerosis; 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: [Atherosclerotic heart disease of huslia coronary artery without angina pectoris] Onset: 04-03-2025 06-28-2020 Chronic Comment on above: CABG x 3 APPIAH-LAD, S VG-PDA, SVG-D1 03/2013 Deficiency and other anemia (20 sources) Anemia; 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: [Anemia, unspecified] 11-19-2019 Episodic Diabetes mellitus with complications (20 sources) Type 2 diabetes mellitus; 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: [Type 2 diabetes mellitus with diabetic polyneuropathy] Onset: 10-31-2024 Chronic Diabetes mellitus without complication (11 sources) Diabetes mellitus; 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: [Type 2 diabetes mellitus without complications] Onset: 04-03-2025 03-06-2025 Chronic Disorders of lipid metabolism (20 sources) Hyperlipidemia; 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: [Hyperlipidemia, unspecified] Chronic Esophageal disorders (20 sources) Gastroesophageal reflux disease; 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: [Gastro-esophageal reflux disease without esophagitis] 11-19-2019 Chronic Esophageal disorders (20 sources) Radiation esophagitis; 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] 06-28-2022 Episodic Essential hypertension (20 sources) Hypertensive disorder; 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: [Essential (primary) hypertension] Onset: 04-03-2025 Chronic Fever of unknown origin (20 sources) Fever; 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: [Fever, unspecified] 12-31-2022 Episodic Fluid and electrolyte disorders (13 sources) Hyperkalemia; 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: [Hyperkalemia] Onset: 04-03-2025 03-04-2025 Episodic Genitourinary symptoms and ill-defined conditions (20 sources) Scalding pain on urination ; 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: [Dysuria] Episodic Heart valve disorders (20 sources) Tricuspid valve regurgitation; 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: [Rheumatic tricuspid insufficiency] Onset: 04-03-2025 03-06-2025 Chronic Hypertension with complications and secondary hypertension (1 source) Hypertensive heart and chronic kidney disease with heart failure and stage 1 through stage 4 chronic kidney disease, or unspecified chronic kidney disease; 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: [Hypertensive heart and chronic kidney disease with heart failure and stage 1 through stage 4 chronic kidney disease, or unspecified chronic kidney disease] Onset: 04-03-2025 Chronic Immunizations and screening for infectious disease (20 sources) Infectious disease carrier; 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: [Carrier of infectious disease, unspecified] Episodic Influenza (20 sources) Influenza due to Influenza A virus; 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: [Influenza due to other identified influenza virus with other respiratory manifestations] 12-31-2022 Episodic Malaise and fatigue (20 sources) Asthenia; 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: [Weakness] 12-31-2022 Episodic Nutritional deficiencies (20 sources) Undernutrition; 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: [Unspecified protein-calorie malnutrition] Chronic Osteoarthritis (5 sources) Osteoarthritis; 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: [Osteoarthrosis, unspecified whether generalized or localized, lower leg] Onset: 04-14-2014 04-14-2014 Chronic Other aftercare (16 sources) Long-term current use of anticoagulant; 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: [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] 03-04-2025 Episodic Other aftercare (4 sources) Long-term current use of drug therapy; 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: [terminal makeup operator (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 of 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/antipl atelets] 03-15-2025 Episodic Other aftercare (1 source) 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; 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: [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] Onset: 04-03-2025 Episodic Other circulatory disease (1 source) Other specified peripheral vascular diseases; 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: [Other specified peripheral vascular diseases] Onset: 07-07-2024 Chronic Other diseases of veins and lymphatics (20 sources) Peripheral venous insufficiency; 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: [Venous insufficiency (chronic) (peripheral)] 04-28-2020 Episodic Other diseases of veins and lymphatics (20 sources) Venous insufficiency (chronic) (peripheral); 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: [Venous (peripheral) insufficiency, unspecified] Episodic Other hematologic conditions (10 sources) Increased serum protein level; 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: [Abnormality [...] breath] 10-09-2022 Episodic Other lower respiratory disease (15 sources) Dyspnea on exertion; 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: [Other forms of dyspnea] 07-25-2023 Episodic Other lower respiratory disease (10 sources) Nodule of lung; 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: [Solitary pulmonary nodule] 10-18-2023 Episodic Comment on above: CT on 10/12/2023 show s new R lower lobe nodule, not active on PET/CT. Other lower respiratory disease (2 sources) Solitary pulmonary nodule; 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: [Solitary pulmonary nodule] 10-18-2023 Episodic Other lower respiratory disease (1 source) Cough; 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: [Acute cough] 04-05-2022 Episodic Other lower respiratory disease (18 sources) Hypoxia; 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: [Hypoxemia] 10-23-2024 Episodic Other lower respiratory disease (6 sources) History of chronic obstructive airway disease; 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: [Personal history of other diseases of the respiratory system] 03-04-2025 Episodic Other nutritional; endocrine; and metabolic disorders (20 sources) H/O: diabetes mellitus; 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: [Personal history of other endocrine, nutritional and metabolic disease] 05-14-2023 Episodic Other nutritional; endocrine; and metabolic disorders (12 sources) Body mass index 25-29 - overweight; 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: [Overweight] 03-04-2025 Episodic Other nutritional; endocrine; and metabolic disorders (1 source) Overweight; 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: [Overweight] Onset: 04-03-2025 Episodic Other screening for suspected conditions (not mental disorders or infectious disease) (13 sources) Raised cardiac enzyme or marker; 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: [Other specified abnormal findings of blood chemistry] Onset: 04-03-2025 03-04-2025 Episodic Other upper respiratory disease (4 sources) Anterior epistaxis; 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: [Epistaxis] 03-15-2025 Episodic Other upper respiratory disease (1 source) Epistaxis; 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: [Epistaxis] Onset: 03-19-2025 Episodic Peripheral and visceral atherosclerosis (20 sources) Peripheral vascular disease; 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: [Peripheral vascular disease, unspecified] Onset: 04-03-2025 Chronic Pleurisy; pneumothorax; pulmonary collapse (13 sources) Pleural effusion; 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: [Pleural effusion, not elsewhere classified] Onset: 04-03-2025 03-04-2025 Episodic Residual codes; unclassified (20 sources) Edema of lower extremity; 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: [Localized edema] 05-22-2020 Episodic Residual codes; unclassified (20 sources) Localized edema; 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: [Localized edema] 12-21-2021 Episodic Residual codes; unclassified (20 sources) Localized edema; 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: [Edema] Episodic Respiratory failure; insufficiency; arrest (adult) (4 sources) Chronic hypoxemic respiratory failure; 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: [Chronic respiratory failure with hypoxia] 03-15-2025 Chronic Substance-related disorders (20 sources) Tobacco dependence in remission; 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, cigarettes, in remission] Chronic Unclassified (1 source) Acute cough; 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: [Acute cough] Onset: 04-05-2022 Unclassified (5 sources) Follow-up to evaluate for atrial flutter, tachybradycardia syndrome Unclassified (5 sources) Discharged with Claudio catheter. Unclassified (5 sources) LEFT MESSAGE WITH OFFICE TO REACH OUT AND SCHEDULE APPOINTMENT. IF YOU DO NOT HEAR FROM THE OFFICE WITHIN 2-3 BUSINESS DAYS PLEASE CALL THE OFFICE TO SCHEDULE YOUR APPOINTMENT. Unclassified (1 source) Other persistent atrial fibrillation; 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: [Other persistent atrial fibrillation] Onset: 08-15-2025 Urinary tract infections (20 sources) Urinary tract infectious disease; 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: [Urinary tract infection, site not specified] Onset: 04-03-2025 11-19-2019 Episodic Past or Other Problems Problem [...] Onset: 07-30-2024 Episodic Other lower respiratory disease (1 source) Other forms of dyspnea; 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: [Other forms of dyspnea] Onset: 10-08-2024 Episodic Results Test Name Value Interpretation Reference Range Facility Absolute lymphocyte countOrd ered By: Leslie Arriaga on 04-02-2025 Lymphocytes Auto (Unsp spec) [#/Vol] 0.87 10*3/uL 0.83-4.[address] [facility] Absolute neutrophil countOrd ered By: Leslie Arriaga on 04-02-2025 Neutrophils (Bld) [#/Vol] 6.9 10*3/uL 2.0-7.[address] [facility] Anion gap in Serum or Plasma Ordered By: Leslie Arriaga on 04-02-2025 Anion gap [Moles/Vol] 10 mmol/L 01-01 [facility] Automated lymphocyte count a s percentage of total leukocytesOrdered By: Leslie Arriaga on 04-02-2025 Lymphocytes/100 WBC Auto (Unsp spec) 10.0 % Low [facility] BUN/creatinine ratioOrdered By: Leslie Arriaga on 04-02-2025 Urea nitrogen/Creatinine [Mass ratio] 16.4 mg/mg 06-[address] [facility] Basic Metabolic Profile (BMP )on 04-02-2025 BUN/CRE 16.4 RATIO Normal 06-[address] [facility] Comment on above: Order Comment: Comme nts: [facility] Performed By: #### L 100.0100, L503.7505, L500.2500 ####[facility] [address] [place], [address] Calcium [Mass/Vol] 9.2 mg/dL Normal 7.6-11.0 [facility] Comment on above: Order Comment: Comme nts: [facility] to [facility] Tomorrow Performed By: #### L 100.0100, L503.7505, L500.2500 ####[facility] [address] [place], [address] Chloride [Moles/Vol] 99 mmol/L Normal 98-108 [facility] Comment on above: Order Comment: Comme nts: [facility] to [facility] Tomorrow Performed By: #### L 100.0100, L503.7505, L500.2500 ####[facility] [address] [place], [address] CO2 [Moles/Vol] 27.8 mmol/L Normal 21.0-32.[address] [facility] Comment on above: Order Comment: Comme nts: [facility] to [facility] Tomorrow Performed By: #### L 100.0100, [id number], L500.2500 ####[facility] [address] [place], [address] Creatinine [Mass/Vol] 2.13 mg/dL High 0.70-1.20 [facility] Comment on above: Order Comment: Comme nts: [facility] to [facility] Tomorrow Performed By: #### L 100.0100, [id number], L500.2500 ####[facility] [address] [place], [address] GAP 10 Normal 5-[address] [facility] Comment on above: Order Comment: Comme nts: [facility] to [facility] Tomorrow Performed By: #### L 100.0100, [id number], L500.2500 ####[facility] [address] [place], [address] GFR/1.73 sq M.predicted among non-blacks MDRD (S/P/Bld) [Vol rate/Area] 31 mL/min/{1.73_m2} Low >60 [facility] Comment on above: Order Comment: Comme nts: [facility] to [facility] to [facility] Tomorrow Result Comment: mL/m in/1.73m2 CKD-EPI Creatinine Equation (2020) Performed By: #### L 100.0100, L503.7505, L500.2500 ####[facility] [address] [place], [address] Glucose [Mass/Vol] 185 mg/dL High 70-99 [facility] Comment on above: Order Comment: Comme nts: [facility] to [facility] to [facility] Tomorrow Performed By: #### L 100.0100, L503.7505, L500.2500 ####[facility] [address] [place], [address] Potassium [Moles/Vol] 5.6 mmol/L High 3.3-5.1 [facility] Comment on above: Order Comment: Comme nts: [facility] to [facility] Tomorrow Performed By: #### L 100.0100, [id number], L500.2500 ####[facility] [address] [place], [address] Sodium [Moles/Vol] 137 mmol/L Normal 133-145 [facility] Comment on above: Order Comment: Comme nts: Home Health to [facility] to [facility] Tomorrow Performed By: #### L 100.0100, [id number], L500.2500 ####[facility] [address] [place], [address] Urea nitrogen [Mass/Vol] 35 mg/dL High 4-[address] [facility] Comment on above: Order Comment: Comme nts: [facility] to [facility] to [facility] Tomorrow Performed By: #### L 100.0100, [id number], L500.2500 ####[facility] [address] [place], [address] Basophil percentageOrdered B y: Leslie Steelonnell on 04-02-2025 Basophils/100 WBC (Bld) 0.3 % 0-1 [facility] CBC W/Diff, Automatedon 03-20-2024 Absolute Lymph 0.87 X10 3/uL Normal 0.83-4.[address] [facility] Comment on above: Order Comment: Comme nts: Home Health to Draw Tomorrow Performed By: #### L 100.0100, [id number], L500.2500 ####[facility] [address] [place], [address] Absolute Neut 6.9 X10 3/uL Normal 2.0-7.[address] [facility] Comment on above: Order Comment: Comme nts: Home Health to Draw Tomorrow Performed By: #### L 100.0100, [id number], L500.2500 ####[facility] [address] [place], [address] Basophils/100 WBC (Bld) 0.3 % Normal 0-1 [facility] Comment on above: Order Comment: Comme nts: Home Health to Draw Tomorrow Performed By: #### L 100.0100, [id number], L500.2500 ####[facility] [address] [place], [address] Eosinophils/100 WBC (Bld) 0.8 % Normal 0-[address] [facility] Comment on above: Order Comment: Comme nts: Home Health to Draw Tomorrow Performed By: #### L 100.0100, [id number], L500.2500 ####[facility] [address] [place], [address] Erythrocyte distribution width (RBC) [Ratio] 17.1 % High 11.6-14.[address] [facility] Comment on above: Order Comment: Comme nts: Home Health to Draw Tomorrow Performed By: #### L 100.0100, [id number], L500.2500 ####[facility] [address] [place], [address] Hematocrit (Bld) [Volume fraction] 30.6 % Low 40-[address] [facility] Comment on above: Order Comment: Comme nts: Home Health to Draw Tomorrow Performed By: #### L 100.0100, [id number], L500.2500 ####[facility] [address] [place], [address] Hemoglobin (Bld) [Mass/Vol] 9.2 g/dL Low 13.0-16.[address] [facility] Comment on above: Order Comment: Comme nts: Home Health to Draw Tomorrow Performed By: #### L 100.0100, [id number], L500.2500 ####[facility] [address] [place], [address] IG% 0.600 Normal 0.0-0.[address] [facility] Comment on above: Order Comment: Comme nts: Home Health to Draw Tomorrow Result Comment: IG% - Immature Granulocytes (promyelocytes, myelocytes andmetamyelocytes) > 1% indicates that a LEFT SHIFT is Present. Performed By: #### L 100.0100, L503.7505, L500.2500 ####[facility] [address] [place], [address] Lymphocytes/100 WBC (Bld) 10.0 % Low 19-[address] [facility] Comment on above: Order Comment: Comme nts: Home Health to Draw Tomorrow Performed By: #### L 100.0100, [id number], L500.2500 ####[facility] [address] [place], [address] MCH (RBC) [Entitic mass] 26.8 pg Low 27.0-32.[address] [facility] Comment on above: Order Comment: Comme nts: Home Health to Draw Tomorrow Performed By: #### L 100.0100, [id number], L500.2500 ####[facility] [address] [place], [address] MCHC (RBC) [Mass/Vol] 30.1 g/dL Low 32-36 [facility] Comment on above: Order Comment: Comme nts: Home Health to Draw Tomorrow Performed By: #### L 100.0100, L503.7505, L500.2500 ####[facility] [address] [place], [address] MCV (RBC) [Entitic vol] 89.2 fL Normal 80-94 [facility] Comment on above: Order Comment: Comme nts: Home Health to Draw Tomorrow Performed By: #### L 100.0100, [id number], L500.2500 ####[facility] [address] [place], [address] Monocytes/100 WBC (Bld) 8.9 % Normal 0-10 [facility] Comment on above: Order Comment: Comme nts: Home Health to Draw Tomorrow Performed By: #### L 100.0100, [id number], L500.2500 ####[facility] [address] [place], [address] Neutrophils/100 WBC (Bld) 79.4 % High 47-[address] [facility] Comment on above: Order Comment: Comme nts: Home Health to Draw Tomorrow Performed By: #### L 100.0100, L503.7505, L500.2500 ####[facility] [address] [place], [address] Nucleated RBC (Bld) [#/Vol] 0 10*3/uL Normal 0-[address] [facility] Comment on above: Order Comment: Comme nts: Home Health to Draw Tomorrow Performed By: #### L 100.0100, L503.7505, L500.2500 ####[facility] [address] [place], [address] Platelet mean volume (Bld) [Entitic vol] 10.6 fL Normal 6.2-12.[address] [facility] Comment on above: Order Comment: Comme nts: Home Health to Draw Tomorrow Performed By: #### L 100.0100, L503.7505, L500.2500 ####[facility] [address] [place], [address] Platelets (Bld) [#/Vol] 210 10*3/uL Normal 150-[address] [facility] Comment on above: Order Comment: Comme nts: Home Health to Draw Tomorrow Performed By: #### L 100.0100, [id number], L500.2500 ####[facility] [address] [place], [address] RBC (Bld) [#/Vol] 3.43 10*6/uL Low 4.6-6.2 [facility] Comment on above: Order Comment: Comme nts: Home Health to Draw Tomorrow Performed By: #### L 100.0100, L503.7505, L500.2500 ####[facility] [address] [place], [address] RDW SD 55.3 fl High 35.1-43.[address] [facility] Comment on above: Order Comment: Comme nts: Home Health to Draw Tomorrow Performed By: #### L 100.0100, L503.7505, L500.2500 ####[facility] [address] [place], [address] WBC (Bld) [#/Vol] 8.7 10*3/uL Normal 4.4-11.0 [facility] Comment on above: Order Comment: Comme nts: Home Health to Draw Tomorrow Performed By: #### L 100.0100, L503.7505, L500.2500 ####[facility] [address] [place], [address] Carbon dioxide, total [Moles /volume] in Central venous bloodOrdered By: Leslie Arriaga on 04-02-2025 CO2 [Moles/Vol] 27.8 mmol/L 21.0-32.[address] [facility] Chloride assayOrdered By: Linsey Arriaga on 04-02-2025 Chloride [Moles/Vol] 99 mmol/L 98-108 [facility] Eosinophil percentageOrdered By: Leslie Arriaga on 04-02-2025 Eosinophils/100 WBC (Bld) 0.8 % 0-[address] [facility] Erythrocyte distribution wid th ratioOrdered By: Leslie Arriaga on 04-02-2025 Erythrocyte distribution width (RBC) [Ratio] 17.1 % High 11.6-14.[address] [facility] Erythrocyte distribution wid th standard deviationOrdered By: Leslie Arriaga on 04-02-2025 Erythrocyte distribution width (RBC) [Ratio] 55.3 fl High 35.1-43.[address] [facility] Glomerular filtration rate ( GFR) estimation/1.73 sq m using serum, plasma, or whole bOrdered By: Leslie Arriaga on 04-02-2025 GFR/1.73 sq M.predicted among non-blacks MDRD (S/P/Bld) [Vol rate/Area] 31 mL/min/{1.73_m2} Low >60 [facility] Comment on above: mL/min/1.73m2 CKD-EP I Creatinine Equation (2020) Hematocrit Auto (Bld) [Volum e fraction]Ordered By: Leslie Arriaga on 04-02-2025 Hematocrit (Bld) [Volume fraction] 30.6 % Low 40-[address] [facility] Hemoglobin measurementOrdere d By: Leslie Arriaga on 04-02-2025 Hemoglobin (Bld) [Mass/Vol] 9.2 g/dL Low 13.0-16.[address] [facility] Immature granulocytes/100 WB C Auto (Bld)Ordered By: Leslie Arriaga on 04-02-2025 Immature granulocytes/100 WBC (Bld) 0.600 % 0.0-0.[address] [facility] Comment on above: IG% - Immature Granu locytes (promyelocytes, myelocytes and metamyelocytes) > 1% indicates that a LEFT SHIFT is Present. MCV (mean corpuscular volume ) determinationOrdered By: Leslie Arriaga on 04-02-2025 MCV (RBC) [Entitic vol] 89.2 fL 80-94 [facility] Mean corpuscular hemoglobin (MCH) determinationOrdered By: Leslie Arriaga on 04-02-2025 MCH (RBC) [Entitic mass] 26.8 pg Low 27.0-32.[address] [facility] Mean corpuscular hemoglobin concentration (MCHC) determinationOrdered By: Leslie Arriaga on 04-02-2025 MCHC (RBC) [Mass/Vol] 30.1 g/dL Low 32-36 [facility] Mean platelet volume determi nationOrdered By: Leslie Arriaga on 04-02-2025 Platelet mean volume (Bld) [Entitic vol] 10.6 fL 6.2-12.[address] [facility] Monocyte percentageOrdered B y: Leslie Arriaga on 04-02-2025 Monocytes/100 WBC (Bld) 8.9 % 0-10 [facility] Natriuretic peptide.B prohor girish N-Terminal [Mass/volume] in Serum or PlasmaOrdered By: Leslie Arriaga on 04-02-2025 Natriuretic peptide.B prohormone N-Terminal [Mass/Vol] 2526 pg/mL High <[address] [facility] Comment on above: Heart Failure Unlike ly: < 300 pg/mLHeart Failure Likely< 50 Years: > 450 pg/mL50-75 Years: > 900 pg/mL>75 Years: > 1800 pg/mL Neutrophil percentageOrdered By: Leslie Arriaga on 04-02-2025 Neutrophils/100 WBC (Bld) 79.4 % High 47-[address] [facility] Nucleated red blood cell per centageOrdered By: Leslie Arriaga on 04-02-2025 Nucleated RBC/100 WBC (Bld) [Ratio] 0 % 0-[address] [facility] Platelet countOrdered By: Linsey Arriaga on 04-02-2025 Platelets (Bld) [#/Vol] 210 10*3/uL 150-[address] [facility] [facility] [facility] Potassium measurement (mass/ volume)Ordered By: Leslie Arriaga on 04-02-2025 Potassium (Unsp spec) [Mass/Vol] 5.6 mmol/L High 3.3-5.[address] [facility] Pro- Brain NATRIURETIC PEPTI Adrienne 04-02-2025 Natriuretic peptide B (Bld) [Mass/Vol] 2526 pg/mL High <=[address] [facility] Comment on above: Order Comment: Comme nts: Home Health to Draw Tomorrow Result Comment: Hear t Failure Unlikely: < 300 pg/mLHeart Failure Likely< 50 Years: > 450 pg/mL50-75 Years: > 900 pg/mL>75 Years: > 1800 pg/mL Performed By: #### L 100.0100, L503.7505, L500.2500 ####[facility] [address] [place], [address] RBC Auto (Bld) [#/Vol]Ordere d By: Leslie Arriaga on 04-02-2025 RBC (Bld) [#/Vol] 3.43 10*6/uL Low 4.6-6.2 [facility] Serum creatinine measurement (mass/volume)Ordered By: Leslie Arriaga on 04-02-2025 Creatinine [Mass/Vol] 2.13 mg/dL High 0.70-1.20 [facility] Serum glucose measurement (m ass/volume)Ordered By: Leslie Arriaga on 04-02-2025 Glucose [Mass/Vol] 185 mg/dL High 70-99 [facility] Serum or plasma calcium kingsley urement (mass/volume)Ordered By: Leslie Arriaga on 04-02-2025 Calcium [Mass/Vol] 9.2 mg/dL 7.6-11.0 [facility] Serum or plasma urea nitroge n measurement (mass/volume)Ordered By: Leslie Arriaga on 04-02-2025 Urea nitrogen [Mass/Vol] 35 mg/dL High 4-[address] [facility] Sodium levelOrdered By: Brian julien Corina on 04-02-2025 Sodium [Moles/Vol] 137 mmol/L 133-145 [facility] White blood cell (WBC) count Ordered By: Leslie Arriaga on 04-02-2025 WBC (Bld) [#/Vol] 8.7 10*3/uL 4.4-11.0 [facility] Absolute lymphocyte countOrd ered By: Tonio Fajardo on 03-18-2025 Lymphocytes Auto (Unsp spec) [#/Vol] 0.88 10*3/uL 0.83-4.[address] [facility] Absolute neutrophil countOrd ered By: Tonio Fajardo on 03-18-2025 Neutrophils (Bld) [#/Vol] 5.9 10*3/uL 2.0-7.[address] [facility] Anion gap in Serum or Plasma Ordered By: Tonio Fajardo on 03-18-2025 Anion gap [Moles/Vol] 11 mmol/L - [facility] Automated lymphocyte count a s percentage of total leukocytesOrdered By: Tonio Fajardo on 03-18-2025 Lymphocytes/100 WBC Auto (Unsp spec) 11.2 % Low - [facility] BUN/creatinine ratioOrdered By: Tonio Fajardo on 03-18-2025 Urea nitrogen/Creatinine [Mass ratio] 14.8 mg/mg 06-[address] [facility] Basic Metabolic Profile (BMP )on 03-18-2025 BUN/CRE 14.8 RATIO Normal 06-[address] [facility] Comment on above: Performed By: #### L 500.2500, L100.0100 ####[facility] [address] [place], [address] Calcium [Mass/Vol] 9.5 mg/dL Normal 7.6-11.0 [facility] Comment on above: Performed By: #### L 500.2500, L100.0100 ####[facility] [address] [place], [address] Chloride [Moles/Vol] 99 mmol/L Normal 98-108 [facility] Comment on above: Performed By: #### L 500.2500, L100.0100 ####[facility] [address] [place], [address] CO2 [Moles/Vol] 26.7 mmol/L Normal 21.0-32.[address] [facility] Comment on above: Performed By: #### L 500.2500, L100.0100 ####[facility] [address] [place], [address] Creatinine [Mass/Vol] 1.59 mg/dL High 0.70-1.20 [facility] Comment on above: Performed By: #### L 500.2500, L100.0100 ####[facility] [address] [place], [address] GAP 11 Normal 5-[address] [facility] Comment on above: Performed By: #### L 500.2500, L100.0100 ####[facility] [address] [place], [address] GFR/1.73 sq M.predicted among non-blacks MDRD (S/P/Bld) [Vol rate/Area] 44 mL/min/{1.73_m2} Low >60 [facility] Comment on above: Result Comment: mL/m in/1.73m2 CKD-EPI Creatinine Equation (2020) Performed By: #### L 500.2500, L100.0100 ####[facility] [address] [place], [address] Glucose [Mass/Vol] 223 mg/dL High 70-99 [facility] Comment on above: Performed By: #### L 500.2500, L100.0100 ####[facility] [address] [place], [address] Potassium [Moles/Vol] 5.2 mmol/L High 3.3-5.1 [facility] Comment on above: Performed By: #### L 500.2500, L100.0100 ####[facility] [address] [place], [address] Sodium [Moles/Vol] 137 mmol/L Normal 133-145 [facility] Comment on above: Performed By: #### L 500.2500, L100.0100 ####[facility] [address] [place], [address] Urea nitrogen [Mass/Vol] 24 mg/dL High 4-[address] [facility] Comment on above: Performed By: #### L 500.2500, L100.0100 ####[facility] [address] [place], [address] Basophil percentageOrdered B y: Tonio Fajardo on 03-18-2025 Basophils/100 WBC (Bld) 0.5 % 0-1 [facility] CBC W/Diff, Automatedon 02-19 0-2024 Absolute Lymph 0.88 X10 3/uL Normal 0.83-4.[address] [facility] Comment on above: Performed By: #### L 500.2500, L100.0100 ####[facility] [address] [place], [address] Absolute Neut 5.9 X10 3/uL Normal 2.0-7.[address] [facility] Comment on above: Performed By: #### L 500.2500, L100.0100 ####[facility] [address] [place], [address] Basophils/100 WBC (Bld) 0.5 % Normal 0-1 [facility] Comment on above: Performed By: #### L 500.2500, L100.0100 ####[facility] [address] [place], [address] Eosinophils/100 WBC (Bld) 3.1 % Normal 0-[address] [facility] Comment on above: Performed By: #### L 500.2500, L100.0100 ####[facility] [address] [place], [address] Erythrocyte distribution width (RBC) [Ratio] 16.4 % High 11.6-14.[address] [facility] Comment on above: Performed By: #### L 500.2500, L100.0100 ####[facility] [address] [place], [address] Hematocrit (Bld) [Volume fraction] 32.6 % Low 40-[address] [facility] Comment on above: Performed By: #### L 500.2500, L100.0100 ####[facility] [address] [place], [address] Hemoglobin (Bld) [Mass/Vol] 9.7 g/dL Low 13.0-16.[address] [facility] Comment on above: Performed By: #### L 500.2500, L100.0100 ####[facility] [address] [place], [address] IG% 1.100 High 0.0-0.[address] [facility] Comment on above: Result Comment: IG% - Immature Granulocytes (promyelocytes, myelocytes andmetamyelocytes) > 1% indicates that a LEFT SHIFT is Present. Performed By: #### L 500.2500, L100.0100 ####[facility] [address] [place], [address] Lymphocytes/100 WBC (Bld) 11.2 % Low 19-[address] [facility] Comment on above: Performed By: #### L 500.2500, L100.0100 ####[facility] [address] [place], [address] MCH (RBC) [Entitic mass] 26.8 pg Low 27.0-32.[address] [facility] Comment on above: Performed By: #### L 500.2500, L100.0100 ####[facility] [address] [place], [address] MCHC (RBC) [Mass/Vol] 29.8 g/dL Low 32-36 [facility] Comment on above: Performed By: #### L 500.2500, L100.0100 ####[facility] [address] [place], [address] MCV (RBC) [Entitic vol] 90.1 fL Normal 80-94 [facility] Comment on above: Performed By: #### L 500.2500, L100.0100 ####[facility] [address] [place], [address] Monocytes/100 WBC (Bld) 9.4 % Normal 0-10 [facility] Comment on above: Performed By: #### L 500.2500, L100.0100 ####[facility] [address] [place], [address] Neutrophils/100 WBC (Bld) 74.7 % High 47-[address] [facility] Comment on above: Performed By: #### L 500.2500, L100.0100 ####[facility] [address] [place], [address] Nucleated RBC (Bld) [#/Vol] 0 10*3/uL Normal 0-[address] [facility] Comment on above: Performed By: #### L 500.2500, L100.0100 ####[facility] [address] [place], [address] Platelet mean volume (Bld) [Entitic vol] 10.4 fL Normal 6.2-12.[address] [facility] Comment on above: Performed By: #### L 500.2500, L100.0100 ####[facility] [address] [place], [address] Platelets (Bld) [#/Vol] 252 10*3/uL Normal 150-[address] [facility] Comment on above: Performed By: #### L 500.2500, L100.0100 ####[facility] [address] [place], [address] RBC (Bld) [#/Vol] 3.62 10*6/uL Low 4.6-6.2 [facility] Comment on above: Performed By: #### L 500.2500, L100.0100 ####[facility] [address] [place], [address] RDW SD 53.8 fl High 35.1-43.[address] [facility] Comment on above: Performed By: #### L 500.2500, L100.0100 ####[facility] [address] [place], [address] WBC (Bld) [#/Vol] 7.9 10*3/uL Normal 4.4-11.0 [facility] Comment on above: Performed By: #### L 500.2500, L100.0100 ####[facility] [address] [place], [address] Carbon dioxide, total [Moles /volume] in Central venous bloodOrdered By: Tonio Fajardo on 03-18-2025 CO2 [Moles/Vol] 26.7 mmol/L 21.0-32.[address] [facility] Chloride assayOrdered By: Min Fajardo on 03-18-2025 Chloride [Moles/Vol] 99 mmol/L 98-108 [facility] Eosinophil percentageOrdered By: Tonio Fajardo on 03-18-2025 Eosinophils/100 WBC (Bld) 3.1 % 0-[address] [facility] Erythrocyte distribution wid th ratioOrdered By: Tonio Fajardo on 03-18-2025 Erythrocyte distribution width (RBC) [Ratio] 16.4 % High 11.6-14.[address] [facility] Erythrocyte distribution wid th standard deviationOrdered By: Tonio Fajardo on 03-18-2025 Erythrocyte distribution width (RBC) [Ratio] 53.8 fl High 35.1-43.[address] [facility] Glomerular filtration rate ( GFR) estimation/1.73 sq m using serum, plasma, or whole bOrdered By: Tonio Fajardo on 03-18-2025 GFR/1.73 sq M.predicted among non-blacks MDRD (S/P/Bld) [Vol rate/Area] 44 mL/min/{1.73_m2} Low >60 [facility] Comment on above: mL/min/1.73m2 CKD-EP I Creatinine Equation (2020) Hematocrit Auto (Bld) [Volum e fraction]Ordered By: Tonio Fajardo on 03-18-2025 Hematocrit (Bld) [Volume fraction] 32.6 % Low 40-[address] [facility] Hemoglobin measurementOrdere d By: Tonio Fajardo on 03-18-2025 Hemoglobin (Bld) [Mass/Vol] 9.7 g/dL Low 13.0-16.[address] [facility] Immature granulocytes/100 WB C Auto (Bld)Ordered By: Tonio Fajardo on 03-18-2025 Immature granulocytes/100 WBC (Bld) 1.100 % High 0.0-0.[address] [facility] Comment on above: IG% - Immature Granu locytes (promyelocytes, myelocytes and metamyelocytes) > 1% indicates that a LEFT SHIFT is Present. MCV (mean corpuscular volume ) determinationOrdered By: Tonio Fajardo on 03-18-2025 MCV (RBC) [Entitic vol] 90.1 fL 80-94 [facility] Mean corpuscular hemoglobin (MCH) determinationOrdered By: Tonio Fajardo on 03-18-2025 MCH (RBC) [Entitic mass] 26.8 pg Low 27.0-32.[address] [facility] Mean corpuscular hemoglobin concentration (MCHC) determinationOrdered By: Tonio Fajardo on 03-18-2025 MCHC (RBC) [Mass/Vol] 29.8 g/dL Low 32-36 [facility] Mean platelet volume determi nationOrdered By: Tonio Fajardo on 03-18-2025 Platelet mean volume (Bld) [Entitic vol] 10.4 fL 6.2-12.[address] [facility] Monocyte percentageOrdered B y: Tonio Fajardo on 07-30-2025 Monocytes/100 WBC (Bld) 9.4 % 0-10 [facility] Neutrophil percentageOrdered By: Tonio Fajardo on 03-18-2025 Neutrophils/100 WBC (Bld) 74.7 % High 47-[address] [facility] Nucleated red blood cell per centageOrdered By: Tonio Fajardo on 03-18-2025 Nucleated RBC/100 WBC (Bld) [Ratio] 0 % 0-[address] [facility] Platelet countOrdered By: Min Fajardo on 03-18-2025 Platelets (Bld) [#/Vol] 252 10*3/uL 150-[address] [facility] Potassium measurement (mass/ volume)Ordered By: Tonio Fajardo on 03-18-2025 Potassium (Unsp spec) [Mass/Vol] 5.2 mmol/L High 3.3-5.[address] [facility] RBC Auto (Bld) [#/Vol]Ordere d By: Tonio Fajardo on 03-18-2025 RBC (Bld) [#/Vol] 3.62 10*6/uL Low 4.6-6.2 [facility] Serum creatinine measurement (mass/volume)Ordered By: Tonio Fajardo on 03-18-2025 Creatinine [Mass/Vol] 1.59 mg/dL High 0.70-1.20 [facility] Serum glucose measurement (m ass/volume)Ordered By: Tonio Fajardo on 03-18-2025 Glucose [Mass/Vol] 223 mg/dL High 70-99 [facility] Serum or plasma calcium kings[place] urement (mass/volume)Ordered By: Tonio Fajardo on 03-18-2025 Calcium [Mass/Vol] 9.5 mg/dL 7.6-11.0 [facility] Serum or plasma urea nitroge n measurement (mass/volume)Ordered By: Tonio Fajardo on 03-18-2025 Urea nitrogen [Mass/Vol] 24 mg/dL High 4-[address] [facility] Sodium levelOrdered By: Tonio Fajardo on 03-18-2025 Sodium [Moles/Vol] 137 mmol/L 133-145 [facility] White blood cell (WBC) count Ordered By: Tonio Fajardo on 03-18-2025 WBC (Bld) [#/Vol] 7.9 10*3/uL 4.4-11.0 [facility] Cardiology Visit Reporton Cardiology Visit Report Normal [facility] Emergency Department Summary on 03-15-2025 Emergency Department Summary Normal [facility] Basic Metabolic Profile (BMP )on 03-11-2025 BUN Normal 4-[address] [facility] Comment on above: Result Comment: Canc elled via OM: Order cancelled - Patient discharged Performed By: #### L 500.2500, L100.0100 ####[facility] [address] [place], [address] BUN/CRE Normal 10-[address] [facility] Comment on above: Result Comment: Canc elled via OM: Order cancelled - Patient discharged Performed By: #### L 500.2500, L100.0100 ####[facility] [address] [place], [address] Calcium Normal 7.6-11.[address] [facility] Comment on above: Result Comment: Canc elled via OM: Order cancelled - Patient discharged Performed By: #### L 500.2500, L100.0100 ####[facility] [address] [place], [address] CL Normal 98-[address] [facility] Comment on above: Result Comment: Canc elled via OM: Order cancelled - Patient discharged Performed By: #### L 500.2500, L100.0100 ####[facility] [address] [place], [address] CO2 Normal 21.0-32.[address] [facility] Comment on above: Result Comment: Canc elled via OM: Order cancelled - Patient discharged Performed By: #### L 500.2500, L100.0100 ####[facility] [address] [place], [address] CREAT,SERUM Normal 0.70-1.[address] [facility] Comment on above: Result Comment: Canc elled via OM: Order cancelled - Patient discharged Performed By: #### L 500.2500, L100.0100 ####[facility] [address] [place], [address] eGFR Normal >[address] [facility] Comment on above: Result Comment: Canc elled via OM: Order cancelled - Patient discharged Performed By: #### L 500.2500, L100.0100 ####[facility] [address] [place], [address] GAP Normal 5-[address] [facility] Comment on above: Result Comment: Canc elled via OM: Order cancelled - Patient discharged Performed By: #### L 500.2500, L100.0100 ####[facility] [address] [place], [address] GLU Normal 70-[address] [facility] Comment on above: Result Comment: Canc elled via OM: Order cancelled - Patient discharged Performed By: #### L 500.2500, L100.0100 ####[facility] [address] [place], [address] Potassium Normal 3.3-5.[address] [facility] Comment on above: Result Comment: Canc elled via OM: Order cancelled - Patient discharged Performed By: #### L 500.2500, L100.0100 ####[facility] [address] [place], [address] Basic Metabolic Profile (BMP) Normal 133-[address] [facility] Comment on above: Result Comment: Canc elled via OM: Order cancelled - Patient discharged Performed By: #### L 500.2500, L100.0100 ####[facility] [address] [place], [address] CBC W/Diff, Automatedon 07-2 Absolute Neut Normal 2.0-7.[address] [facility] Comment on above: Result Comment: Canc elled via OM: Order cancelled - Patient discharged Performed By: #### L 500.2500, L100.0100 ####[facility] [address] [place], [address] HCT Normal 40-[address] [facility] Comment on above: Result Comment: Canc elled via OM: Order cancelled - Patient discharged Performed By: #### L 500.2500, L100.0100 ####[facility] [address] [place], [address] HGB Normal 13.0-16.[address] [facility] Comment on above: Result Comment: Canc elled via OM: Order cancelled - Patient discharged Performed By: #### L 500.2500, L100.0100 ####[facility] [address] [place], [address] MCH Normal 27.0-32.[address] [facility] Comment on above: Result Comment: Canc elled via OM: Order cancelled - Patient discharged Performed By: #### L 500.2500, L100.0100 ####[facility] [address] [place], [address] MCHC Normal 32-[address] [facility] Comment on above: Result Comment: Canc elled via OM: Order cancelled - Patient discharged Performed By: #### L 500.2500, L100.0100 ####[facility] [address] [place], [address] MCV Normal 80-[address] [facility] Comment on above: Result Comment: Canc elled via OM: Order cancelled - Patient discharged Performed By: #### L 500.2500, L100.0100 ####[facility] [address] [place], [address] NEUT% Normal 47-[address] [facility] Comment on above: Result Comment: Canc elled via OM: Order cancelled - Patient discharged Performed By: #### L 500.2500, L100.0100 ####[facility] [address] [place], [address] PLT Normal 150-[address] [facility] Comment on above: Result Comment: Canc elled via OM: Order cancelled - Patient discharged Performed By: #### L 500.2500, L100.0100 ####[facility] [address] [place], [address] RBC Normal 4.6-6.[address] [facility] Comment on above: Result Comment: Canc elled via OM: Order cancelled - Patient discharged Performed By: #### L 500.2500, L100.0100 ####[facility] [address] [place], [address] RDW CV Normal 11.6-14.[address] [facility] Comment on above: Result Comment: Canc elled via OM: Order cancelled - Patient discharged Performed By: #### L 500.2500, L100.0100 ####[facility] [address], [address] RDW SD Normal 35.1-43.[address] [facility] Comment on above: Result Comment: Canc elled via OM: Order cancelled - Patient discharged Performed By: #### L 500.2500, L100.0100 ####[facility] [address] [place], [address] WBC Normal 4.4-11.[address] [facility] Comment on above: Result Comment: Canc elled via OM: Order cancelled - Patient discharged Performed By: #### L 500.2500, L100.0100 ####[facility] [address] [place], [address] Basic Metabolic Profile (BMP )on 03-10-2025 BUN Normal 4-[address] [facility] Comment on above: Result Comment: Canc elled via OM: Order cancelled - Patient discharged Performed By: #### L 500.2500, L100.0100 ####[facility] [address] [place], [address] BUN/CRE Normal 10-[address] [facility] Comment on above: Result Comment: Canc elled via OM: Order cancelled - Patient discharged Performed By: #### L 500.2500, L100.0100 ####[facility] [address] [place], [address] Calcium Normal 7.6-11.[address] [facility] Comment on above: Result Comment: Canc elled via OM: Order cancelled - Patient discharged Performed By: #### L 500.2500, L100.0100 ####[facility] [address] [place], [address] CL Normal 98-[address] [facility] Comment on above: Result Comment: Canc elled via OM: Order cancelled - Patient discharged Performed By: #### L 500.2500, L100.0100 ####[facility] [address] [place], [address] CO2 Normal 21.0-32.[address] [facility] Comment on above: Result Comment: Canc elled via OM: Order cancelled - Patient discharged Performed By: #### L 500.2500, L100.0100 ####[facility] [address] [place], [address] CREAT,SERUM Normal 0.70-1.[address] [facility] Comment on above: Result Comment: Canc elled via OM: Order cancelled - Patient discharged Performed By: #### L 500.2500, L100.0100 ####[facility] [address] [place], [address] eGFR Normal >[address] [facility] Comment on above: Result Comment: Canc elled via OM: Order cancelled - Patient discharged Performed By: #### L 500.2500, L100.0100 ####[facility] [address] [place], [address] GAP Normal 5-[address] [facility] Comment on above: Result Comment: Canc elled via OM: Order cancelled - Patient discharged Performed By: #### L 500.2500, L100.0100 ####[facility] [address] [place], [address] GLU Normal 70-[address] [facility] Comment on above: Result Comment: Canc elled via OM: Order cancelled - Patient discharged Performed By: #### L 500.2500, L100.0100 ####[facility] [address] [place], [address] Potassium Normal 3.3-5.1 [facility] [facility] Comment on above: Result Comment: Canc elled via OM: Order cancelled - Patient discharged Performed By: #### L 500.2500, L100.0100 ####[facility] [address] [place], [address] Basic Metabolic Profile (BMP) Normal 133-[address] [facility] Comment on above: Result Comment: Canc elled via OM: Order cancelled - Patient discharged Performed By: #### L 500.2500, L100.0100 ####[facility] [address] [place], [address] CBC W/Diff, Automatedon 07-2 Absolute Neut Normal 2.0-7.[address] [facility] Comment on above: Result Comment: Canc elled via OM: Order cancelled - Patient discharged Performed By: #### L 500.2500, L100.0100 ####[facility] [address] [place], [address] HCT Normal 40-[address] [facility] Comment on above: Result Comment: Canc elled via OM: Order cancelled - Patient discharged Performed By: #### L 500.2500, L100.0100 ####[facility] [address] [place], [address] HGB Normal 13.0-16.[address] [facility] Comment on above: Result Comment: Canc elled via OM: Order cancelled - Patient discharged Performed By: #### L 500.2500, L100.0100 ####[facility] [address] [place], [address] MCH Normal 27.0-32.[address] [facility] Comment on above: Result Comment: Canc elled via OM: Order cancelled - Patient discharged Performed By: #### L 500.2500, L100.0100 ####[facility] [address] [place], [address] MCHC Normal 32-[address] [facility] Comment on above: Result Comment: Canc elled via OM: Order cancelled - Patient discharged Performed By: #### L 500.2500, L100.0100 ####[facility] [address] [place], [address] MCV Normal 80-[address] [facility] Comment on above: Result Comment: Canc elled via OM: Order cancelled - Patient discharged Performed By: #### L 500.2500, L100.0100 ####[facility] [address] [place], [address] NEUT% Normal 47-[address] [facility] Comment on above: Result Comment: Canc elled via OM: Order cancelled - Patient discharged Performed By: #### L 500.2500, L100.0100 ####[facility] [address] [place], [address] PLT Normal 150-[address] [facility] Comment on above: Result Comment: Canc elled via OM: Order cancelled - Patient discharged Performed By: #### L 500.2500, L100.0100 ####[facility] [address] [place], [address] RBC Normal 4.6-6.[address] [facility] Comment on above: Result Comment: Canc elled via OM: Order cancelled - Patient discharged Performed By: #### L 500.2500, L100.0100 ####[facility] [address] [place], [address] RDW CV Normal 11.6-14.[address] [facility] Comment on above: Result Comment: Canc elled via OM: Order cancelled - Patient discharged Performed By: #### L 500.2500, L100.0100 ####[facility] [address] [place], [address] RDW SD Normal 35.1-43.[address] [facility] Comment on above: Result Comment: Canc elled via OM: Order cancelled - Patient discharged Performed By: #### L 500.2500, L100.0100 ####[facility] [address] [place], [address] WBC Normal 4.4-11.[address] [facility] Comment on above: Result Comment: Canc elled via OM: Order cancelled - Patient discharged Performed By: #### L 500.2500, L100.0100 ####[facility] [address] [place], [address] Absolute lymphocyte countOrd ered By: Deric Lantigua on 03-09-2025 Lymphocytes Auto (Unsp spec) [#/Vol] 0.53 10*3/uL Low 0.83-4.[address] [facility] Absolute neutrophil countOrd ered By: Deric Lantigua on 03-09-2025 Neutrophils (Bld) [#/Vol] 4.0 10*3/uL 2.0-7.[address] [facility] Anion gap in Serum or Plasma Ordered By: Deric Lantigua on 03-09-2025 Anion gap [Moles/Vol] 10 mmol/L 5-15 [facility] Automated lymphocyte count a s percentage of total leukocytesOrdered By: Deric Lantigua on 03-09-2025 Lymphocytes/100 WBC Auto (Unsp spec) 9.7 % Low 19-[address] [facility] BUN/creatinine ratioOrdered By: Deric Lantigua on 03-09-2025 Urea nitrogen/Creatinine [Mass ratio] 20.8 mg/mg High 10-[address] [facility] Basic Metabolic Profile (BMP )on 03-09-2025 BUN/CRE 20.8 RATIO High 10-[address] [facility] Comment on above: Performed By: #### L 100.0100, L500.2500 ####[facility] [address] [place], [address] Calcium [Mass/Vol] 9.0 mg/dL Normal 7.6-11.0 [facility] Comment on above: Performed By: #### L 100.0100, L500.2500 ####[facility] [address] [place], [address] Chloride [Moles/Vol] 101 mmol/L Normal 98-108 [facility] Comment on above: Performed By: #### L 100.0100, L500.2500 ####[facility] [address] [place], [address] CO2 [Moles/Vol] 26.6 mmol/L Normal 21.0-32.[address] [facility] Comment on above: Performed By: #### L 100.0100, L500.2500 ####[facility] [address] [place], [address] Creatinine [Mass/Vol] 2.41 mg/dL High 0.70-1.20 [facility] Comment on above: Performed By: #### L 100.0100, L500.2500 ####[facility] [address] [place], [address] ECRCL 24.14 ml/min Low 50-[address] [facility] Comment on above: Performed By: #### L 100.0100, L500.2500 ####[facility] [address] [place], [address] GAP 10 Normal 5-[address] [facility] Comment on above: Performed By: #### L 100.0100, L500.2500 ####[facility] [address] [place], [address] GFR/1.73 sq M.predicted among non-blacks MDRD (S/P/Bld) [Vol rate/Area] 26 mL/min/{1.73_m2} Low >60 [facility] Comment on above: Result Comment: mL/m in/1.73m2 CKD-EPI Creatinine Equation (2020) Performed By: #### L 100.0100, L500.2500 ####[facility] [address] [place], [address] Glucose [Mass/Vol] 118 mg/dL High 70-99 [facility] Comment on above: Performed By: #### L 100.0100, L500.2500 ####[facility] [address] [place], [address] Potassium [Moles/Vol] 4.3 mmol/L Normal 3.3-5.1 [facility] Comment on above: Performed By: #### L 100.0100, L500.2500 ####[facility] [address] [place], [address] Sodium [Moles/Vol] 138 mmol/L Normal 133-145 [facility] Comment on above: Performed By: #### L 100.0100, L500.2500 ####[facility] [address] [place], [address] Urea nitrogen [Mass/Vol] 50 mg/dL High 4-[address] [facility] Comment on above: Performed By: #### L 100.0100, L500.2500 ####[facility] [address] [place], [address] Basophil percentageOrdered B y: Deric Lantigua on 03-09-2025 Basophils/100 WBC (Bld) 0.2 % 0-1 [facility] Bedside Glucoseon 03-09-2025 FINGERSTICK GLU 184 mg/dL High 74-[address] [facility] Comment on above: Result Comment: KODY GEMENT OF PATIENT CARE PER NURSING PROTOCOL Performed By: #### L 501.080 ####[facility] [address] [place], [address] FINGERSTICK GLU 112 mg/dL High 74-[address] [facility] Comment on above: Result Comment: KODY GEMENT OF PATIENT CARE PER NURSING PROTOCOL Performed By: #### L 501.080 ####[facility] [address] [place], [address] CBC W/Diff, Automatedon 07-2 -2024 Absolute Lymph 0.53 X10 3/uL Low 0.83-4.[address] [facility] Comment on above: Performed By: #### L 100.0100, L500.2500 ####[facility] [address] [place], [address] Absolute Neut 4.0 X10 3/uL Normal 2.0-7.[address] [facility] Comment on above: Performed By: #### L 100.0100, L500.2500 ####[facility] [address] [place], [address] Basophils/100 WBC (Bld) 0.2 % Normal 0-1 [facility] Comment on above: Performed By: #### L 100.0100, L500.2500 ####[facility] [address] [place], [address] Eosinophils/100 WBC (Bld) 4.8 % Normal 0-[address] [facility] Comment on above: Performed By: #### L 100.0100, L500.2500 ####[facility] [address] [place], [address] Erythrocyte distribution width (RBC) [Ratio] 16.3 % High 11.6-14.[address] [facility] Comment on above: Performed By: #### L 100.0100, L500.2500 ####[facility] [address] [place], [address] Hematocrit (Bld) [Volume fraction] 29.6 % Low 40-[address] [facility] Comment on above: Performed By: #### L 100.0100, L500.2500 ####[facility] [address] [place], [address] Hemoglobin (Bld) [Mass/Vol] 9.3 g/dL Low 13.0-16.[address] [facility] Comment on above: Performed By: #### L 100.0100, L500.2500 ####[facility] [address] [place], [address] IG% 0.600 Normal 0.0-0.[address] [facility] Comment on above: Result Comment: IG% - Immature Granulocytes (promyelocytes, myelocytes andmetamyelocytes) > 1% indicates that a LEFT SHIFT is Present. Performed By: #### L 100.0100, L500.2500 ####[facility] [address] [place], [address] Lymphocytes/100 WBC (Bld) 9.7 % Low 19-[address] [facility] Comment on above: Performed By: #### L 100.0100, L500.2500 ####[facility] [address] [place], [address] MCH (RBC) [Entitic mass] 27.5 pg Normal 27.0-32.[address] [facility] Comment on above: Performed By: #### L 100.0100, L500.2500 ####[facility] [address] [place], [address] MCHC (RBC) [Mass/Vol] 31.4 g/dL Low 32-36 [facility] Comment on above: Performed By: #### L 100.0100, L500.2500 ####[facility] [address] [place], [address] MCV (RBC) [Entitic vol] 87.6 fL Normal 80-94 [facility] Comment on above: Performed By: #### L 100.0100, L500.2500 ####[facility] [address] [place], [address] Monocytes/100 WBC (Bld) 12.1 % High 0-10 [facility] Comment on above: Performed By: #### L 100.0100, L500.2500 ####[facility] [address] [place], [address] Neutrophils/100 WBC (Bld) 72.6 % High 47-[address] [facility] Comment on above: Performed By: #### L 100.0100, L500.2500 ####[facility] [address] [place], [address] Nucleated RBC (Bld) [#/Vol] 0 10*3/uL Normal 0-[address] [facility] Comment on above: Performed By: #### L 100.0100, L500.2500 ####[facility] [address] [place], [address] Platelet mean volume (Bld) [Entitic vol] 10.0 fL Normal 6.2-12.[address] [facility] Comment on above: Performed By: #### L 100.0100, L500.2500 ####[facility] [address] [place], [address] Platelets (Bld) [#/Vol] 162 10*3/uL Normal 150-[address] [facility] Comment on above: Performed By: #### L 100.0100, L500.2500 ####[facility] [address] [place], [address] RBC (Bld) [#/Vol] 3.38 10*6/uL Low 4.6-6.2 [facility] Comment on above: Performed By: #### L 100.0100, L500.2500 ####[facility] [address] [place], [address] RDW SD 51.8 fl High 35.1-43.[address] [facility] Comment on above: Performed By: #### L 100.0100, L500.2500 ####[facility] [address] [place], [address] WBC (Bld) [#/Vol] 5.5 10*3/uL Normal 4.4-11.0 [facility] Comment on above: Performed By: #### L 100.0100, L500.2500 ####[facility] [address] [place], [address] Carbon dioxide, total [Moles /volume] in Central venous bloodOrdered By: Deric Lantigua on 03-09-2025 CO2 [Moles/Vol] 26.6 mmol/L 21.0-32.[address] [facility] Chloride assayOrdered By: Silvia Lantigua on 03-09-2025 Chloride [Moles/Vol] 101 mmol/L 98-108 [facility] Discharge Instructionon 07 Discharge Instruction Normal [facility] Eosinophil percentageOrdered By: Deric Lantigua on 03-09-2025 Eosinophils/100 WBC (Bld) 4.8 % 0-[address] [facility] Erythrocyte distribution wid th ratioOrdered By: Deric Lantigua on 03-09-2025 Erythrocyte distribution width (RBC) [Ratio] 16.3 % High 11.6-14.[address] [facility] Erythrocyte distribution wid th standard deviationOrdered By: Deric Lantigua on 03-09-2025 Erythrocyte distribution width (RBC) [Ratio] 51.8 fl High 35.1-43.[address] [facility] Glomerular filtration rate ( GFR) estimation/1.73 sq m using serum, plasma, or whole bOrdered By: Deric Lantigua on 03-09-2025 GFR/1.73 sq M.predicted among non-blacks MDRD (S/P/Bld) [Vol rate/Area] 26 mL/min/{1.73_m2} Low >60 [facility] Comment on above: mL/min/1.73m2 CKD-EP I Creatinine Equation (2020) Glucose measurement at bedsi deOrdered By: Deric Lantigua on 03-09-2025 Glucose [Mass/Vol] 184 mg/dL High 74-106 [facility] Comment on above: MANAGEMENT OF PATIEN T CARE PER NURSING PROTOCOL Hematocrit Auto (Bld) [Volum e fraction]Ordered By: Deric Lantigua on 03-09-2025 Hematocrit (Bld) [Volume fraction] 29.6 % Low 40-[address] [facility] Hemoglobin measurementOrdere d By: Deric Lantigua on 03-09-2025 Hemoglobin (Bld) [Mass/Vol] 9.3 g/dL Low 13.0-16.[address] [facility] Immature granulocytes/100 WB C Auto (Bld)Ordered By: Deric Lantigua on 03-09-2025 Immature granulocytes/100 WBC (Bld) 0.600 % 0.0-0.[address] [facility] Comment on above: IG% - Immature Granu locytes (promyelocytes, myelocytes and metamyelocytes) > 1% indicates that a LEFT SHIFT is Present. MCV (mean corpuscular volume ) determinationOrdered By: Deric Lantigua on 03-09-2025 MCV (RBC) [Entitic vol] 87.6 fL 80-94 [facility] Mean corpuscular hemoglobin (MCH) determinationOrdered By: Deric Lantigua on 03-09-2025 MCH (RBC) [Entitic mass] 27.5 pg 27.0-32.[address] [facility] Mean corpuscular hemoglobin concentration (MCHC) determinationOrdered By: Deric Lantigua on 03-09-2025 MCHC (RBC) [Mass/Vol] 31.4 g/dL Low 32-36 [facility] Mean platelet volume determi nationOrdered By: Deric Lantigua on 03-09-2025 Platelet mean volume (Bld) [Entitic vol] 10.0 fL 6.2-12.[address] [facility] Monocyte percentageOrdered B y: Deric Lantigua on 03-09-2025 Monocytes/100 WBC (Bld) 12.1 % High 0-10 [facility] Neutrophil percentageOrdered By: Deric Lantigua on 03-09-2025 Neutrophils/100 WBC (Bld) 72.6 % High 47-[address] [facility] Nucleated red blood cell per centageOrdered By: Deric Lantigua on 03-09-2025 Nucleated RBC/100 WBC (Bld) [Ratio] 0 % 0-[address] [facility] Platelet countOrdered By: Silvia Lantigua on 03-09-2025 Platelets (Bld) [#/Vol] 162 10*3/uL 150-[address] [facility] Potassium measurement (mass/ volume)Ordered By: Deric Lantigua on 03-09-2025 Potassium (Unsp spec) [Mass/Vol] 4.3 mmol/L 3.3-5.[address] [facility] RBC Auto (Bld) [#/Vol]Ordere d By: Deric Lantigua on 03-09-2025 RBC (Bld) [#/Vol] 3.38 10*6/uL Low 4.6-6.2 [facility] Serum creatinine measurement (mass/volume)Ordered By: Deric Lantgiua on 03-09-2025 Creatinine [Mass/Vol] 2.41 mg/dL High 0.70-1.20 [facility] Serum glucose measurement (m ass/volume)Ordered By: Deric Lantigua on 03-09-2025 Glucose [Mass/Vol] 118 mg/dL High 70-99 [facility] Serum or plasma calcium [place] urement (mass/volume)Ordered By: Deric Lantigua on 03-09-2025 Calcium [Mass/Vol] 9.0 mg/dL 7.6-11.0 [facility] Serum or plasma urea nitroge n measurement (mass/volume)Ordered By: Deric Lantigua on 03-09-2025 Urea nitrogen [Mass/Vol] 50 mg/dL High 4-[address] [facility] Sodium levelOrdered By: Mikki Lantigua on 03-09-2025 Sodium [Moles/Vol] 138 mmol/L 133-145 [facility] White blood cell (WBC) count Ordered By: Deric Lantigua on 03-09-2025 WBC (Bld) [#/Vol] 5.5 10*3/uL 4.4-11.0 [facility] Basic Metabolic Profile (BMP )on 03-08-2025 BUN/CRE 19.9 RATIO Normal 10-[address] [facility] Comment on above: Performed By: #### L 500.2500 ####[facility] [address] [place], [address] Calcium [Mass/Vol] 8.8 mg/dL Normal 7.6-11.0 [facility] Comment on above: Performed By: #### L 500.2500 ####[facility] [address] [place], [address] Chloride [Moles/Vol] 99 mmol/L Normal 98-108 [facility] Comment on above: Performed By: #### L 500.2500 ####[facility] [address] [place], [address] CO2 [Moles/Vol] 27.0 mmol/L Normal 21.0-32.[address] [facility] Comment on above: Performed By: #### L 500.2500 ####[facility] [address] [place], [address] Creatinine [Mass/Vol] 3.11 mg/dL High 0.70-1.20 [facility] Comment on above: Performed By: #### L 500.2500 ####[facility] [address] [place], [address] ECRCL 17.10 ml/min Low 50-[address] [facility] Comment on above: Performed By: #### L 500.2500 ####[facility] [address] [place], [address] GAP 10 Normal 5-[address] [facility] Comment on above: Performed By: #### L 500.2500 ####[facility] [address] [place], [address] GFR/1.73 sq M.predicted among non-blacks MDRD (S/P/Bld) [Vol rate/Area] 19 mL/min/{1.73_m2} Low >60 [facility] Comment on above: Result Comment: mL/m in/1.73m2 CKD-EPI Creatinine Equation (2020) Performed By: #### L 500.2500 ####[facility] [address] [place], [address] Glucose [Mass/Vol] 127 mg/dL High 70-99 [facility] Comment on above: Performed By: #### L 500.2500 ####[facility] [address] [place], [address] Potassium [Moles/Vol] 5.3 mmol/L High 3.3-5.1 [facility] Comment on above: Performed By: #### L 500.2500 ####[facility] [address] [place], [address] Sodium [Moles/Vol] 135 mmol/L Normal 133-145 [facility] Comment on above: Performed By: #### L 500.2500 ####[facility] [address] [place], [address] Urea nitrogen [Mass/Vol] 62 mg/dL High 4-[address] [facility] Comment on above: Performed By: #### L 500.2500 ####[facility] [address] [place], [address] Bedside Glucoseon 03-08-2025 FINGERSTICK GLU 132 mg/dL High 74-[address] [facility] Comment on above: Result Comment: KODY GEMENT OF PATIENT CARE PER NURSING PROTOCOL Performed By: #### L 501.080 ####[facility] [address] [place], [address] FINGERSTICK GLU 142 mg/dL High 74-[address] [facility] Comment on above: Result Comment: KODY GEMENT OF PATIENT CARE PER NURSING PROTOCOL Performed By: #### L 501.080 ####[facility] [address] [place], [address] FINGERSTICK GLU 128 mg/dL High 74-[address] [facility] Comment on above: Result Comment: KODY GEMENT OF PATIENT CARE PER NURSING PROTOCOL Performed By: #### L 501.080 ####[facility] [address] [place], [address] FINGERSTICK GLU 122 mg/dL High 74-[address] [facility] Comment on above: Result Comment: KODY GEMENT OF PATIENT CARE PER NURSING PROTOCOL Performed By: #### L 501.080 ####[facility] [address] [place], [address] Magnesiumon 03-08-2025 Magnesium [Mass/Vol] 2.3 mg/dL High 1.5-2.2 [facility] Comment on above: Performed By: #### L 501.5200 ####[facility] [address] [place], [address] Magnesium measurement (mass/ volume)Ordered By: Nicola Madison on 03-08-2025 Magnesium (Unsp spec) [Mass/Vol] 2.3 mg/dL High 1.5-2.[address] [facility] Potassiumon 03-08-2025 Potassium [Moles/Vol] 5.5 mmol/L High 3.3-5.1 [facility] Comment on above: Performed By: #### L 501.5600 ####[facility] [address] [place], [address] Basic Metabolic Profile (BMP )on 03-07-2025 BUN/CRE 18.2 RATIO Normal 10-[address] [facility] Comment on above: Performed By: #### L 500.2500 ####[facility] [address] [place], [address] Calcium [Mass/Vol] 8.7 mg/dL Normal 7.6-11.0 [facility] Comment on above: Performed By: #### L 500.2500 ####[facility] [address] [place], [address] Chloride [Moles/Vol] 97 mmol/L Low 98-108 [facility] Comment on above: Performed By: #### L 500.2500 ####[facility] [address] [place], [address] CO2 [Moles/Vol] 26.3 mmol/L Normal 21.0-32.[address] [facility] Comment on above: Performed By: #### L 500.2500 ####[facility] [address] [place], [address] Creatinine [Mass/Vol] 3.09 mg/dL High 0.70-1.20 [facility] Comment on above: Performed By: #### L 500.2500 ####[facility] [address] [place], [address] ECRCL 17.21 ml/min Low 50-[address] [facility] Comment on above: Performed By: #### L 500.2500 ####[facility] [address] [place], [address] GAP 10 Normal 5-[address] [facility] Comment on above: Performed By: #### L 500.2500 ####[facility] [address] [place], [address] GFR/1.73 sq M.predicted among non-blacks MDRD (S/P/Bld) [Vol rate/Area] 20 mL/min/{1.73_m2} Low >60 [facility] Comment on above: Result Comment: mL/m in/1.73m2 CKD-EPI Creatinine Equation (2020) Performed By: #### L 500.2500 ####[facility] [address] [place], [address] Glucose [Mass/Vol] 126 mg/dL High 70-99 [facility] Comment on above: Performed By: #### L 500.2500 ####[facility] [address], [address] Potassium [Moles/Vol] 4.8 mmol/L Normal 3.3-5.1 [facility] Comment on above: Performed By: #### L 500.2500 ####[facility] [address] [place], [address] Sodium [Moles/Vol] 134 mmol/L Normal 133-145 [facility] Comment on above: Performed By: #### L 500.2500 ####[facility] [address] [place], [address] Urea nitrogen [Mass/Vol] 56 mg/dL High 4-[address] [facility] Comment on above: Performed By: #### L 500.2500 ####[facility] [address] [place], [address] Bedside Glucoseon 03-07-2025 FINGERSTICK GLU 151 mg/dL High 74-[address] [facility] Comment on above: Result Comment: KODY GEMENT OF PATIENT CARE PER NURSING PROTOCOL Performed By: #### L 501.080 ####[facility] [address] [place], [address] FINGERSTICK GLU 191 mg/dL High 74-[address] [facility] Comment on above: Result Comment: KODY GEMENT OF PATIENT CARE PER NURSING PROTOCOL Performed By: #### L 501.080 ####[facility] [address] [place], [address] FINGERSTICK GLU 184 mg/dL High 74-[address] [facility] Comment on above: Result Comment: KODY GEMENT OF PATIENT CARE PER NURSING PROTOCOL Performed By: #### L 501.080 ####[facility] [address] [place], [address] FINGERSTICK GLU 127 mg/dL High 74-[address] [facility] Comment on above: Result Comment: KODY GEMENT OF PATIENT CARE PER NURSING PROTOCOL Performed By: #### L 501.080 ####[facility] [address] [place], [address] Urine Cultureon 03-07-2025 [facility] Comments: On UA sample of 03/04 Culture exhibits no growth. Normal [facility] Comment on above: Performed By: #### M 100.2200 ####[facility] [address] [place], [address] Basic Metabolic Profile (BMP )on 03-06-2025 BUN/CRE 17.8 RATIO Normal 10-[address] [facility] Comment on above: Performed By: #### L 500.2500, L501.2300 ####[facility] [address] [place], [address] Calcium [Mass/Vol] 9.1 mg/dL Normal 7.6-11.0 [facility] Comment on above: Performed By: #### L 500.2500, L501.2300 ####[facility] [address] [place], [address] Chloride [Moles/Vol] 99 mmol/L Normal 98-108 [facility] Comment on above: Performed By: #### L 500.2500, L501.2300 ####[facility] [address] [place], [address] CO2 [Moles/Vol] 31.2 mmol/L Normal 21.0-32.[address] [facility] Comment on above: Performed By: #### L 500.2500, L501.2300 ####[facility] [address] [place], [address] Creatinine [Mass/Vol] 2.23 mg/dL High 0.70-1.20 [facility] Comment on above: Performed By: #### L 500.2500, L501.2300 ####[facility] [address] [place], [address] ECRCL 23.84 ml/min Low 50-[address] [facility] Comment on above: Performed By: #### L 500.2500, L501.2300 ####[facility] [address] [place], [address] GAP 8 Normal 5-[address] [facility] Comment on above: Performed By: #### L 500.2500, L501.2300 ####[facility] [address] [place], [address] GFR/1.73 sq M.predicted among non-blacks MDRD (S/P/Bld) [Vol rate/Area] 29 mL/min/{1.73_m2} Low >60 [facility] Comment on above: Result Comment: mL/m in/1.73m2 CKD-EPI Creatinine Equation (2020) Performed By: #### L 500.2500, L501.2300 ####[facility] [address] [place], [address] Glucose [Mass/Vol] 118 mg/dL High 70-99 [facility] Comment on above: Performed By: #### L 500.2500, L501.2300 ####[facility] [address] [place], [address] Potassium [Moles/Vol] 4.7 mmol/L Normal 3.3-5.1 [facility] Comment on above: Performed By: #### L 500.2500, L501.2300 ####[facility] [address] [place], [address] Sodium [Moles/Vol] 138 mmol/L Normal 133-145 [facility] Comment on above: Performed By: #### L 500.2500, L501.2300 ####[facility] [address] [place], [address] Urea nitrogen [Mass/Vol] 40 mg/dL High 4-[address] [facility] Comment on above: Performed By: #### L 500.2500, L501.2300 ####[facility] [address] [place], [address] Bedside Glucoseon 03-06-2025 FINGERSTICK GLU 146 mg/dL High 74-[address] [facility] Comment on above: Result Comment: KODY GEMENT OF PATIENT CARE PER NURSING PROTOCOL Performed By: #### L 501.080 ####[facility] [address] [place], [address] FINGERSTICK GLU 117 mg/dL High -[address] [facility] Comment on above: Result Comment: KODY GEMENT OF PATIENT CARE PER NURSING PROTOCOL Performed By: #### L 501.080 ####[facility] [address], [address] FINGERSTICK GLU 229 mg/dL High -[address] [facility] Comment on above: Result Comment: KODY GEMENT OF PATIENT CARE PER NURSING PROTOCOL Performed By: #### L 501.080 ####[facility] [address] [place], [address] FINGERSTICK GLU 109 mg/dL High [facility] [facility] Comment on above: Result Comment: KODY GEMENT OF PATIENT CARE PER NURSING PROTOCOL Performed By: #### L 501.080 ####[facility] [address] [place], [address] FINGERSTICK GLU 140 mg/dL High [facility] [facility] Comment on above: Result Comment: KODY GEMENT OF PATIENT CARE PER NURSING PROTOCOL Performed By: #### L 501.080 ####[facility] [address] [place], [address] Consultation - Cardiologyon 03-06-2025 Consultation - Cardiology Normal [facility] Phosphoruson 03-06-2025 Phosphate [Mass/Vol] 3.9 mg/dL Normal 2.7-4.5 [facility] Comment on above: Performed By: #### L 500.2500, L5.2300 ####[facility] [address] [place], [address] Urine cultureOrdered By: Kavita Lantigua on 03-06-2025 Bacteria identified Cx Nom (U) Culture exhibits no growth. [facility] Bedside Glucoseon 03-05-2025 FINGERSTICK GLU 111 mg/dL High 74-[address] [facility] Comment on above: Result Comment: KODY GEMENT OF PATIENT CARE PER NURSING PROTOCOL Performed By: #### L 501.080 ####[facility] [address] [place], [address] FINGERSTICK GLU 152 mg/dL High 74-[address] [facility] Comment on above: Result Comment: KODY GEMENT OF PATIENT CARE PER NURSING PROTOCOL Performed By: #### L 501.080 ####[facility] [address] [place], [address] FINGERSTICK GLU 159 mg/dL High 74-[address] [facility] Comment on above: Result Comment: KODY GEMENT OF PATIENT CARE PER NURSING PROTOCOL Performed By: #### L 501.080 ####[facility] [address] [place], [address] Bilirubin, totalOrdered By: Nicola Madison on 03-05-2025 Bilirubin [Mass/Vol] 0.46 mg/dL 0.00-1.30 [facility] CBC W/Diff, Automatedon 02-17 Absolute Lymph 0.72 X10 3/uL Low 0.83-4.[address] [facility] Comment on above: Performed By: #### L 501.2300, L100.0100 ####[facility] [address] [place], [address] Absolute Neut 5.8 X10 3/uL Normal 2.0-7.[address] [facility] Comment on above: Performed By: #### L 501.2300, L100.0100 ####[facility] [address] [place], [address] Basophils/100 WBC (Bld) 0.4 % Normal 0-1 [facility] Comment on above: Performed By: #### L 501.2300, L100.0100 ####[facility] [address] [place], [address] Eosinophils/100 WBC (Bld) 2.0 % Normal 0-[address] [facility] Comment on above: Performed By: #### L 501.2300, L100.0100 ####[facility] [address] [place], [address] Erythrocyte distribution width (RBC) [Ratio] 16.6 % High 11.6-14.[address] [facility] Comment on above: Performed By: #### L 501.2300, L100.0100 ####[facility] [address] [place], [address] Hematocrit (Bld) [Volume fraction] 30.1 % Low 40-[address] [facility] Comment on above: Performed By: #### L 501.2300, L100.0100 ####[facility] [address] [place], [address] Hemoglobin (Bld) [Mass/Vol] 9.3 g/dL Low 13.0-16.[address] [facility] Comment on above: Performed By: #### L 501.2300, L100.0100 ####[facility] [address] [place], [address] IG% 0.300 Normal 0.0-0.[address] [facility] Comment on above: Result Comment: IG% - Immature Granulocytes (promyelocytes, myelocytes andmetamyelocytes) > 1% indicates that a LEFT SHIFT is Present. Performed By: #### L 501.2300, L100.0100 ####[facility] [address] [place], [address] Lymphocytes/100 WBC (Bld) 9.5 % Low 19-[address] [facility] Comment on above: Performed By: #### L 501.2300, L100.0100 ####[facility] [address] [place], [address] MCH (RBC) [Entitic mass] 27.0 pg Normal 27.0-32.[address] [facility] Comment on above: Performed By: #### L 501.2300, L100.0100 ####[facility] [address] [place], [address] MCHC (RBC) [Mass/Vol] 30.9 g/dL Low 32-36 [facility] Comment on above: Performed By: #### L 501.2300, L100.0100 ####[facility] [address] [place], [address] MCV (RBC) [Entitic vol] 87.5 fL Normal 80-94 [facility] Comment on above: Performed By: #### L 501.2300, L100.0100 ####[facility] [address] [place], [address] Monocytes/100 WBC (Bld) 11.4 % High 0-10 [facility] Comment on above: Performed By: #### L 501.2300, L100.0100 ####[facility] [address] [place], [address] Neutrophils/100 WBC (Bld) 76.4 % High 47-[address] [facility] Comment on above: Performed By: #### L 501.2300, L100.0100 ####[facility] [address] [place], [address] Nucleated RBC (Bld) [#/Vol] 0 10*3/uL Normal 0-[address] [facility] Comment on above: Performed By: #### L 501.2300, L100.0100 ####[facility] [address] [place], [address] Platelet mean volume (Bld) [Entitic vol] 10.7 fL Normal 6.2-12.[address] [facility] Comment on above: Performed By: #### L 501.2300, L100.0100 ####[facility] [address] [place], [address] Platelets (Bld) [#/Vol] 181 10*3/uL Normal 150-[address] [facility] Comment on above: Performed By: #### L 501.2300, L100.0100 ####[facility] [address] [place], [address] RBC (Bld) [#/Vol] 3.44 10*6/uL Low 4.6-6.2 [facility] Comment on above: Performed By: #### L 501.2300, L100.0100 ####[facility] [address] [place], [address] RDW SD 52.8 fl High 35.1-43.[address] [facility] Comment on above: Performed By: #### L 501.2300, L100.0100 ####[facility] [address] [place], [address] WBC (Bld) [#/Vol] 7.6 10*3/uL Normal 4.4-11.0 [facility] Comment on above: Performed By: #### L 501.2300, L100.0100 ####[facility] [address] [place], [address] Calculated very low density lipoprotein (VLDL) cholesterol measurementOrdered By: Nicola Madison on 03-05-2025 Calculated very low density lipoprotein (VLDL) cholesterol measurement 16 mg/dL 5-[address] [facility] Chest 1 View (Portable)on Chest 1 View (Portable) Normal [facility] Comprehensive Metabolic Prof ilon 03-05-2025 Albumin [Mass/Vol] 3.4 g/dL Normal 3.4-4.8 [facility] Comment on above: Performed By: #### L 500.4050, L500.4100, L503.7505 ####[facility] [address] [place], [address] Albumin/Globulin [Mass ratio] 0.9 {ratio} Normal 0.9-2.[address] [facility] Comment on above: Performed By: #### L 500.4050, L500.4100, L503.7505 ####[facility] [address] [place], [address] ALK PHOS 75 U/L Normal 40-[address] [facility] Comment on above: Performed By: #### L 500.4050, L500.4100, L503.7505 ####[facility] [address] [place], [address] ALT [Catalytic activity/Vol] 10 U/L Normal <=[address] [facility] Comment on above: Performed By: #### L 500.4050, L500.4100, L503.7505 ####[facility] [address] [place], [address] AST [Catalytic activity/Vol] 15 U/L Normal <=[address] [facility] Comment on above: Performed By: #### L 500.4050, L500.4100, L503.7505 ####[facility] [address] [place], [address] Bilirubin [Mass/Vol] 0.46 mg/dL Normal 0.00-1.30 [facility] Comment on above: Performed By: #### L 500.4050, L500.4100, L503.7505 ####[facility] [address] [place], [address] BUN/CRE 18.6 RATIO Normal 10-[address] [facility] Comment on above: Performed By: #### L 500.4050, L500.4100, L503.7505 ####[facility] [address] [place], [address] Calcium [Mass/Vol] 9.1 mg/dL Normal 7.6-11.0 [facility] Comment on above: Performed By: #### L 500.4050, L500.4100, L503.7505 ####[facility] [address] [place], [address] Chloride [Moles/Vol] 101 mmol/L Normal 98-108 [facility] Comment on above: Performed By: #### L 500.4050, L500.4100, L503.7505 ####[facility] [address] [place], [address] CO2 [Moles/Vol] 27.2 mmol/L Normal 21.0-32.[address] [facility] Comment on above: Performed By: #### L 500.4050, L500.4100, L503.7505 ####[facility] [address] [place], [address] Creatinine [Mass/Vol] 1.95 mg/dL High 0.70-1.20 [facility] Comment on above: Performed By: #### L 500.4050, L500.4100, L503.7505 ####[facility] [address] [place], [address] ECRCL 27.26 ml/min Low 50-[address] [facility] Comment on above: Performed By: #### L 500.4050, L500.4100, L503.7505 ####[facility] [address] [place], [address] GAP 10 Normal 5-[address] [facility] Comment on above: Performed By: #### L 500.4050, L500.4100, L503.7505 ####[facility] [address] [place], [address] GFR/1.73 sq M.predicted among non-blacks MDRD (S/P/Bld) [Vol rate/Area] 34 mL/min/{1.73_m2} Low >60 [facility] Comment on above: Result Comment: mL/m in/1.73m2 CKD-EPI Creatinine Equation (2020) Performed By: #### L 500.4050, L500.4100, L503.7505 ####[facility] [address] [place], [address] Globulin (S) [Mass/Vol] 3.9 g/dL Normal 2.2-4.2 [facility] Comment on above: Performed By: #### L 500.4050, L500.4100, L503.7505 ####[facility] [address] [place], [address] Glucose [Mass/Vol] 171 mg/dL High 70-99 [facility] Comment on above: Performed By: #### L 500.4050, L500.4100, L503.7505 ####[facility] [address] [place], [address] Potassium [Moles/Vol] 5.0 mmol/L Normal 3.3-5.1 [facility] Comment on above: Performed By: #### L 500.4050, L500.4100, L503.7505 ####[facility] [address] [place], [address] Sodium [Moles/Vol] 138 mmol/L Normal 133-145 [facility] Comment on above: Performed By: #### L 500.4050, L500.4100, L503.7505 ####[facility] [address] [place], [address] T PROT 7.3 g/dL Normal 5.9-8.[address] [facility] Comment on above: Performed By: #### L 500.4050, L500.4100, L503.7505 ####[facility] [address] [place], [address] Urea nitrogen [Mass/Vol] 36 mg/dL High 4-[address] [facility] Comment on above: Performed By: #### L 500.4050, L500.4100, L503.7505 ####[facility] [address] [place], [address] Echocardiogram study reportO rdered By: Marjorie Green on 03-05-2025 Study report [facility] [address] [place] [address] Echo Complete W/ Contrast 03/05/25 0941 MR#: [id number] Acct: [id number] Name: PEDRO HILLMAN Rep #:[id number] : 1945 80 From: Marjorie Green MD Attending Dr: Dr. Deric Lantigua MD Status: ADM IN Ordering Dr: Nicola Lindsey DO Date: 03/04/25 Location: U Sex: M C Admitted: 03/04/25 Reason For Study Reason For Study: CHF Procedure This was a 2D Doppler, Color Flow transthoracic echocardiogram. The study was technically difficult. Contrast injection was performed. Exam performed in department. Left Ventricle Normal LV size. Moderate concentric left ventricular hypertrophy. The LV ejection fraction is 55 %. Stage 1 diastolic dysfunction. Right Ventricle Normal right ventricle. Atria The left atrium is severely enlarged. The right atrium is mildly enlarged. Mitral Valve Severe mitral valve annular calcification. Moderate posteriorly directed mitral valve regurgitation. Tricuspid Valve Moderate tricuspid valve regurgitation. Estimated pulmonary artery systolic pressure 42 mmHg. Aortic Valve Aortic sclerosis, no stenosis. Pulmonic Valve Mild (1+) pulmonic valve insufficiency. Great Vessels The aortic root is not well visualized. Pericardium/Pleural No pericardial effusion. Medication Diluted definity 2ml given slow IV push to enhance endocardial definition. MMode/2D Measurements & Calculations LVIDd: 4.4 cm IVSd: 1.4 cm LA dimension: 4.8 cm LVIDs: 3.5 cm LVPWd: 1.4 cm FS: 19.7 % LAV(MOD-bp): 49.5 ml LVAd ap4: 35.3 cm2 SV(MOD-sp4): 66.3 ml LAV(MOD-bp) Indexed: 27.1 ml/m2 LVLd ap4: 8.2 cm SI(MOD-sp4): 36.4 ml/m2 LAV(MOD-sp2): 49.9 ml EDV(MOD-sp4): 130.3 ml LAV(MOD-sp4): 39.5 ml EDV(sp4-el): 128.9 ml LVAs ap4: 22.7 cm2 LVLs ap4: 6.6 cm ESV(MOD-sp4): 64.0 ml ESV(sp4-el): 66.2 ml EF(MOD-sp4): 50.9 % EF(sp4-el): 48.7 % SV(sp4-el): 62.7 ml LA A4 area: 17.2 cm2 RA A4 area: 11.6 cm2 Doppler Measurements & Calculations MV E max yue: 149.6 cm/sec TR max yue: 292.2 cm/sec TR max P.1 mmHg ECHO/Echo Complete W/ Contrast Interpretation Summary Moderate concentric left ventricular hypertrophy. [...] ELIZALDE Performed By: Haley Stevens and Student 03/05/25 1152 Date _ Marjorie Green MD CC: Dr. Nicola Lindsey DO; Dr. Tonio Fajardo DO; Dr. 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 Work Phone: [phone] 03-05-2025 Natriuretic peptide B (Bld) [Mass/Vol] 4176 pg/mL High <=[address] [facility] Comment on above: Result Comment: Hear t Failure Unlikely: < 300 pg/mLHeart Failure Likely< 50 Years: > 450 pg/mL50-75 Years: > 900 pg/mL>75 Years: > 1800 pg/mL Performed By: #### L 500.4050, L500.4100, L503.7505 ####[facility] [address] [place], [place], [id number] LDL calc ser/plasOrdered By: Nicola Madison on 03-05-2025 Cholesterol in LDL [Mass/Vol] 63 mg/dL [facility] Comment on above: Ukplbkflrl=548-424 m g/dL & Higher Sfrj=059 mg/dL or greater Laboratory - Chemistry and C hemistry - challengeOrdered By: Nicola Madison on 03-05-2025 AST [Catalytic activity/Vol] 15 U/L <[address] [facility] Lipid Profileon 03-05-2025 CHOL:HDL 3.[address] [facility] Comment on above: Performed By: #### L 500.4050, L500.4100, L503.7505 ####[facility] [address] [place], [address] Cholesterol [Mass/Vol] 117 mg/dL Normal <=200 [facility] Comment on above: Result Comment: Chol esterol level, Desirable <200 mg/dLBorderline high cholesterol 200-239 mg/dLHigh cholesterol >=240 mg/dLRecommendations of the NCEP Adult Treatment Panel for thefollowing risk-cutoff thresholds for the [place] Americanpulation. Performed By: #### L 500.4050, L500.4100, L503.7505 ####[facility] [address] [place], [address] Cholesterol in HDL [Mass/Vol] 39 mg/dL Low [facility] Comment on above: Result Comment: Gia onal Cholesterol Education Program (NCEP) guidelines:<40 mg/dL: Low HDL-cholesterol (major risk factor for CHD)>= 60 mg/dL: High HDL-cholesterol (negative risk factor forCHD)HDL-cholesterol is affected by a number of factors, e.g.smoking, exercise, hormones, sex and age. Performed By: #### L 500.4050, L500.4100, L503.7505 ####[facility] [address] [place], [address] Cholesterol in LDL [Mass/Vol] 63 mg/dL Normal [facility] Comment on above: Result Comment: Bord wifdhi=672-192 mg/dL Higher Ppic=813 mg/dL or greater Performed By: #### L 500.4050, L500.4100, L503.7505 ####[facility] [address] [place], [address] Cholesterol in VLDL [Mass/Vol] 16 mg/dL Normal 5-[address] [facility] Comment on above: Performed By: #### L 500.4050, L500.4100, L503.7505 ####[facility] [address] [place], [place], [address] Triglyceride [Mass/Vol] 79 mg/dL Normal [facility] Comment on above: Result Comment: The drugs N-Acetylcysteine and Metamizole may falselydepress this assay.Normal range: <150 mg/dLBorderline High: 150-199 mg/dLHigh: 200-499 mg/dLVery High: >500 mg/dL Performed By: #### L 500.4050, L500.4100, L503.7505 ####[facility] [address] [place], [address] Natriuretic peptide.B prohor girish N-Terminal [Mass/volume] in Serum or PlasmaOrdered By: Nicola Madison on 03-05-2025 Natriuretic peptide.B prohormone N-Terminal [Mass/Vol] 4176 pg/mL High <[address] [facility] Comment on above: Heart Failure Unlike ly: < 300 pg/mLHeart Failure Likely< 50 Years: > 450 pg/mL50-75 Years: > 900 pg/mL>75 Years: > 1800 pg/mL Phosphoruson 03-05-2025 Phosphate [Mass/Vol] 3.3 mg/dL Normal 2.7-4.5 [facility] Comment on above: Performed By: #### L 501.2300, L100.0100 ####[facility] [address] [place], [address] Screening total cholesterol/ high density lipoprotein (HDL) cholesterol ratioOrdered By: Nicola Madison on 03-05-2025 Cholesterol.total/Cholest liset in HDL [Mass ratio] 3.04 {ratio} [facility] Serum globulin measurementOr dered By: Nicola Madison on 03-05-2025 Globulin (S) [Mass/Vol] 3.9 g/dL 2.2-4.2 [facility] Serum or plasma alanine ortiz otransferase (ALT) measurementOrdered By: Nicola Madison on 03-05-2025 ALT [Catalytic activity/Vol] 10 U/L <[address] [facility] Serum or plasma albumin kingsley urement (mass/volume)Ordered By: Nicola aMdison on 03-05-2025 Albumin [Mass/Vol] 3.4 g/dL 3.4-4.8 [facility] Serum or plasma albumin/glob ulin mass ratioOrdered By: Nicola Madison on 03-05-2025 Albumin/Globulin [Mass ratio] 0.9 {ratio} 0.9-2.[address] [facility] Serum or plasma alkaline roosevelt sphatase measurementOrdered By: Nicola Madison on 03-05-2025 ALP [Catalytic activity/Vol] 75 U/L 40-[address] [facility] Serum or plasma cholesterol in HDL measurement (mass/volume)Ordered By: Nicola Madison on 03-05-2025 Cholesterol in HDL [Mass/Vol] 39 mg/dL Low >[address] [facility] Comment on above: National Cholesterol Education Program (NCEP) guidelines:<40 mg/dL: Low HDL-cholesterol (major risk factor for CHD)>= 60 mg/dL: High HDL-cholesterol (negative risk factor for CHD)HDL-cholesterol is affected by a number of factors, e.g. smoking, exercise, hormones, sex and age. Serum or plasma cholesterol measurement (mass/volume)Ordered By: Nicola Madison on 03-05-2025 Cholesterol [Mass/Vol] 117 mg/dL <201 [facility] Comment on above: Cholesterol level, D esirable <200 mg/dLBorderline high cholesterol 200-239 mg/dLHigh cholesterol >=240 mg/dLRecommendations of the NCEP Adult Treatment Panel for the following risk-cutoff thresholds for the [place] population. Total proteinOrdered By: Jacob Madison on 03-05-2025 Protein [Mass/Vol] 7.3 g/dL 5.9-8.4 [facility] Triglycerides measurementOrd ered By: Nicola Madison on 03-05-2025 Triglyceride [Mass/Vol] 79 mg/dL <199 [facility] Comment on above: The drugs N-Acetylcy steine and Metamizole may falsely depress this assay. Normal range: <150 mg/dLBorderline High: 150-199 mg/dLHigh: 200-499 mg/dLVery High: >500 mg/dL Absolute lymphocyte countOrd ered By: Chris Ochoa on 03-04-2025 Lymphocytes Auto (Unsp spec) [#/Vol] 0.77 10*3/uL Low 0.83-4.[address] [facility] Absolute neutrophil countOrd ered By: Chris Ochoa on 03-04-2025 Neutrophils (Bld) [#/Vol] 6.0 10*3/uL 2.0-7.[address] [facility] Anion gap in Serum or Plasma Ordered By: Chris Ochoa on 03-04-2025 Anion gap [Moles/Vol] 8 mmol/L 5- [facility] Automated lymphocyte count a s percentage of total leukocytesOrdered By: Chris Ochoa on 03-04-2025 Lymphocytes/100 WBC Auto (Unsp spec) 10.1 % Low 19-[address] [facility] BUN/creatinine ratioOrdered By: Chris Ochoa on 03-04-2025 Urea nitrogen/Creatinine [Mass ratio] 19.7 mg/mg 10- [facility] Basic Metabolic Profile (BMP )on 03-04-2025 BUN/CRE 19.7 RATIO Normal - [facility] Comment on above: Performed By: #### L 100.0100, L501.4021, L500.2500, L503.7505 ####[facility] [address] [place], [address] Calcium [Mass/Vol] 9.3 mg/dL Normal 7.6-11.0 [facility] Comment on above: Performed By: #### L 100.0100, L501.4021, L500.2500, L503.7505 ####[facility] [address] [place], [address] Chloride [Moles/Vol] 102 mmol/L Normal 98-108 [facility] Comment on above: Performed By: #### L 100.0100, L501.4021, L500.2500, L503.7505 ####[facility] [address] [place], [address] CO2 [Moles/Vol] 28.6 mmol/L Normal 21.0-32.[address] [facility] Comment on above: Performed By: #### L 100.0100, L501.4021, L500.2500, L503.7505 ####[facility] [address] [place], [address] Creatinine [Mass/Vol] 1.86 mg/dL High 0.70-1.20 [facility] Comment on above: Performed By: #### L 100.0100, L501.4021, L500.2500, L503.7505 ####[facility] [address] [place], [address] ECRCL 28.58 ml/min Low 50-[address] [facility] Comment on above: Performed By: #### L 100.0100, L501.4021, L500.2500, L503.7505 ####[facility] [address] [place], [address] GAP 8 Normal 5-[address] [facility] Comment on above: Performed By: #### L 100.0100, L501.4021, L500.2500, L503.7505 ####[facility] [address] [place], [address] GFR/1.73 sq M.predicted among non-blacks MDRD (S/P/Bld) [Vol rate/Area] 36 mL/min/{1.73_m2} Low >60 [facility] Comment on above: Result Comment: mL/m in/1.73m2 CKD-EPI Creatinine Equation (2020) Performed By: #### L 100.0100, L501.4021, L500.2500, L503.7505 ####[facility] [address] [place], [address] Glucose [Mass/Vol] 124 mg/dL High 70-99 [facility] Comment on above: Performed By: #### L 100.0100, L501.4021, L500.2500, L503.7505 ####[facility] [address] [place], [address] Potassium [Moles/Vol] 5.2 mmol/L High 3.3-5.1 [facility] Comment on above: Performed By: #### L 100.0100, L501.4021, L500.2500, L503.7505 ####[facility] [address] [place], [address] Sodium [Moles/Vol] 138 mmol/L Normal 133-145 [facility] Comment on above: Performed By: #### L 100.0100, L501.4021, L500.2500, L503.7505 ####[facility] [address] [place], [address] Urea nitrogen [Mass/Vol] 37 mg/dL High 4-[address] [facility] Comment on above: Performed By: #### L 100.0100, L501.4021, L500.2500, L503.7505 ####[facility] [address] [place], [address] Basophil percentageOrdered B y: Chris Ochoa on 03-04-2025 Basophils/100 WBC (Bld) 0.4 % 0-1 [facility] Bedside Glucoseon 03-04-2025 FINGERSTICK GLU 80 mg/dL Normal 74-[address] [facility] Comment on above: Result Comment: KODY STRONG OF PATIENT CARE PER NURSING PROTOCOL Performed By: #### L 501.080 ####[facility] [address] [place], [address] Bilirubin Test strip Ql (U)O rdered By: Nicola Madison on 03-04-2025 Bilirubin Ql (U) Negative Negative [facility] CBC W/Diff, Automatedon 02-17 Absolute Lymph 0.77 X10 3/uL Low 0.83-4.[address] [facility] Comment on above: Performed By: #### L 100.0100, L501.4021, L500.2500, L503.7505 ####[facility] [address] [place], [address] Absolute Neut 6.0 X10 3/uL Normal 2.0-7.[address] [facility] Comment on above: Performed By: #### L 100.0100, L501.4021, L500.2500, L503.7505 ####[facility] [address] [place], [address] Basophils/100 WBC (Bld) 0.4 % Normal 0-1 [facility] Comment on above: Performed By: #### L 100.0100, L501.4021, L500.2500, L503.7505 ####[facility] [address] [place], [address] Eosinophils/100 WBC (Bld) 1.6 % Normal 0-[address] [facility] Comment on above: Performed By: #### L 100.0100, L501.4021, L500.2500, L503.7505 ####[facility] [address] [place], [address] Erythrocyte distribution width (RBC) [Ratio] 16.5 % High 11.6-14.[address] [facility] Comment on above: Performed By: #### L 100.0100, L501.4021, L500.2500, L503.7505 ####[facility] [address] [place], [address] Hematocrit (Bld) [Volume fraction] 33.4 % Low 40-[address] [facility] Comment on above: Performed By: #### L 100.0100, L501.4021, L500.2500, L503.7505 ####[facility] [address] [place], [address] Hemoglobin (Bld) [Mass/Vol] 10.1 g/dL Low 13.0-16.[address] [facility] Comment on above: Performed By: #### L 100.0100, L501.4021, L500.2500, L503.7505 ####[facility] [address] [place], [address] IG% 0.700 Normal 0.0-0.[address] [facility] Comment on above: Result Comment: IG% - Immature Granulocytes (promyelocytes, myelocytes andmetamyelocytes) > 1% indicates that a LEFT SHIFT is Present. Performed By: #### L 100.0100, L501.4021, L500.2500, L503.7505 ####[facility] [address] [place], [address] Lymphocytes/100 WBC (Bld) 10.1 % Low 19-[address] [facility] Comment on above: Performed By: #### L 100.0100, L501.4021, L500.2500, L503.7505 ####[facility] [address] [place], [address] MCH (RBC) [Entitic mass] 27.0 pg Normal 27.0-32.[address] [facility] Comment on above: Performed By: #### L 100.0100, L501.4021, L500.2500, L503.7505 ####[facility] [address] [place], [address] MCHC (RBC) [Mass/Vol] 30.2 g/dL Low 32-36 [facility] Comment on above: Performed By: #### L 100.0100, L501.4021, L500.2500, L503.7505 ####[facility] [address] [place], [address] MCV (RBC) [Entitic vol] 89.3 fL Normal 80-94 [facility] Comment on above: Performed By: #### L 100.0100, L501.4021, L500.2500, L503.7505 ####[facility] [address] [place], [address] Monocytes/100 WBC (Bld) 9.1 % Normal 0-10 [facility] Comment on above: Performed By: #### L 100.0100, L501.4021, L500.2500, L503.7505 ####[facility] [address] [place], [address] Neutrophils/100 WBC (Bld) 78.1 % High 47-[address] [facility] Comment on above: Performed By: #### L 100.0100, L501.4021, L500.2500, L503.7505 ####[facility] [address] [place], [address] Nucleated RBC (Bld) [#/Vol] 0 10*3/uL Normal 0-[address] [facility] Comment on above: Performed By: #### L 100.0100, L501.4021, L500.2500, L503.7505 ####[facility] [address] [place], [address] Platelet mean volume (Bld) [Entitic vol] 10.2 fL Normal 6.2-12.[address] [facility] Comment on above: Performed By: #### L 100.0100, L501.4021, L500.2500, L503.7505 ####[facility] [address] [place], [address] Platelets (Bld) [#/Vol] 189 10*3/uL Normal 150-[address] [facility] Comment on above: Performed By: #### L 100.0100, L501.4021, L500.2500, L503.7505 ####[facility] [address] [place], [address] RBC (Bld) [#/Vol] 3.74 10*6/uL Low 4.6-6.2 [facility] Comment on above: Performed By: #### L 100.0100, L501.4021, L500.2500, L503.7505 ####[facility] [address] [place], [address] RDW SD 54.2 fl High 35.1-43.[address] [facility] Comment on above: Performed By: #### L 100.0100, L501.4021, L500.2500, L503.7505 ####[facility] [address] [place], [address] WBC (Bld) [#/Vol] 7.6 10*3/uL Normal 4.4-11.0 [facility] Comment on above: Performed By: #### L 100.0100, L501.4021, L500.2500, L503.7505 ####[facility] [address] [place], [address] Carbon dioxide, total [Moles /volume] in Central venous bloodOrdered By: Chris Ochoa on 03-04-2025 CO2 [Moles/Vol] 28.6 mmol/L 21.0-32.[address] [facility] Chest PA and Lateralon 03-04 Chest PA and Lateral Normal [facility] Chloride assayOrdered By: Chino Ochoa on 03-04-2025 Chloride [Moles/Vol] 102 mmol/L 98-108 [facility] Echo Complete W/ Contraston 03-04-2025 Echo Complete W/ Contrast Normal [facility] Emergency Department Summary on 03-04-2025 Emergency Department Summary Normal [facility] Eosinophil percentageOrdered By: Chris Ochoa on 03-04-2025 Eosinophils/100 WBC (Bld) 1.6 % 0-[address] [facility] Erythrocyte distribution wid th ratioOrdered By: Chris Ochoa on 03-04-2025 Erythrocyte distribution width (RBC) [Ratio] 16.5 % High 11.6-14.[address] [facility] Erythrocyte distribution wid th standard deviationOrdered By: Chris Ochoa on 03-04-2025 Erythrocyte distribution width (RBC) [Ratio] 54.2 fl High 35.1-43.[address] [facility] Glomerular filtration rate ( GFR) estimation/1.73 sq m using serum, plasma, or whole bOrdered By: Chris Ochoa on 03-04-2025 GFR/1.73 sq M.predicted among non-blacks MDRD (S/P/Bld) [Vol rate/Area] 36 mL/min/{1.73_m2} Low >60 [facility] Comment on above: mL/min/1.73m2 CKD-EP I Creatinine Equation (2020) H AND P Exam - Hospitaliston 03-04-2025 H&P Exam - Hospitalist Normal [facility] Hematocrit Auto (Bld) [Volum e fraction]Ordered By: Chris Ochoa on 03-04-2025 Hematocrit (Bld) [Volume fraction] 33.4 % Low 40-[address] [facility] Hemoglobin A1con 03-04-2025 HbA1c (Bld) [Mass fraction] 6.3 % High <=5.[address] [facility] Comment on above: Result Comment: Norm al < 5.7 % Prediabetic 5.7 - 6.4 % Diabetic >or= 6.5 % Please note range changes. Performed By: #### L 501.9520, L501.5200, L501.9985 ####[facility] [address] [place], [place], [id number] Hemoglobin A1c percentageOrd ered By: Nicola Madison on 03-04-2025 HbA1c (Bld) [Mass fraction] 6.3 % High <5.[address] [facility] Comment on above: Normal < 5.7 % Predi abetic 5.7 - 6.4 % Diabetic >or= 6.5 % Please note range changes. Hemoglobin measurementOrdere d By: Chris Ochoa on 03-04-2025 Hemoglobin (Bld) [Mass/Vol] 10.1 g/dL Low 13.0-16.[address] [facility] Immature granulocytes/100 WB C Auto (Bld)Ordered By: Chris Ochoa on 03-04-2025 Immature granulocytes/100 WBC (Bld) 0.700 % 0.0-0.[address] [facility] Comment on above: IG% - Immature Granu locytes (promyelocytes, myelocytes and metamyelocytes) > 1% indicates that a LEFT SHIFT is Present. Ketones Test strip Ql (U)Ord ered By: Nicola Madison on 03-04-2025 Ketones Ql (U) Negative Negative [facility] L499.0042on 03-04-2025 Trop T High Sen 45 ng/L High <=[address] [facility] Comment on above: Performed By: #### L 499.0042 ####[facility] [address] [place], [address] L499.0043on 03-04-2025 Trop T High Sen 42 ng/L High <=[address] [facility] Comment on above: Performed By: #### L 499.0043 ####[facility] [address] [place], [address] L501.4021on 03-04-2025 Trop T High Sen 44 ng/L High <=[address] [facility] Comment on above: Performed By: #### L 100.0100, L501.4021, L500.2500, L503.7505 ####[facility] [address] [place], [address] L503.7505on 03-04-2025 Natriuretic peptide B (Bld) [Mass/Vol] 3316 pg/mL High <=[address] [facility] Comment on above: Result Comment: Hear t Failure Unlikely: < 300 pg/mLHeart Failure Likely< 50 Years: > 450 pg/mL50-75 Years: > 900 pg/mL>75 Years: > 1800 pg/mL Performed By: #### L 100.0100, L501.4021, L500.2500, L503.7505 ####[facility] [address] [place], [address] MCV (mean corpuscular volume ) determinationOrdered By: Chris Ochoa on 03-04-2025 MCV (RBC) [Entitic vol] 89.3 fL 80-94 [facility] Magnesiumon 03-04-2025 Magnesium [Mass/Vol] 2.0 mg/dL Normal 1.5-2.2 [facility] Comment on above: Performed By: #### L 501.9520, L501.5200, L501.9985 ####[facility] [address] [place], [address] Mean corpuscular hemoglobin (MCH) determinationOrdered By: Chris Ochoa on 03-04-2025 MCH (RBC) [Entitic mass] 27.0 pg 27.0-32.[address] [facility] Mean corpuscular hemoglobin concentration (MCHC) determinationOrdered By: Chris Ochoa on 03-04-2025 MCHC (RBC) [Mass/Vol] 30.2 g/dL Low 32-36 [facility] Mean platelet volume determi nationOrdered By: Chris Ochoa on 03-04-2025 Platelet mean volume (Bld) [Entitic vol] 10.2 fL 6.2-12.[address] [facility] Microscopic analysis of urin e for red blood cells (RBC)Ordered By: Nicola Madison on 03-04-2025 Microscopic analysis of urine for red blood cells (RBC) 5-10 SEEN /hpf 0-[address] [facility] Monocyte percentageOrdered B y: Chris Ochoa on 03-04-2025 Monocytes/100 WBC (Bld) 9.1 % 0-10 [facility] Mucus LM Ql (Urine sed)Order ed By: Nicola Madison on 03-04-2025 Mucus Ql (Urine sed) 0 SEEN /hpf [facility] Natriuretic peptide.B prohor girish N-Terminal [Mass/volume] in Serum or PlasmaOrdered By: Chris Ochoa on 03-04-2025 Natriuretic peptide.B prohormone N-Terminal [Mass/Vol] 3316 pg/mL High <[address] [facility] Comment on above: Heart Failure Unlike ly: < 300 pg/mLHeart Failure Likely< 50 Years: > 450 pg/mL50-75 Years: > 900 pg/mL>75 Years: > 1800 pg/mL Neutrophil percentageOrdered By: Chris Ochoa on 03-04-2025 Neutrophils/100 WBC (Bld) 78.1 % High 47-[address] [facility] Nitrite Test strip Ql (U)Ord ered By: Nicola Madison on 03-04-2025 Nitrite Ql (U) Positive High Negative [facility] Nucleated red blood cell per centageOrdered By: Chris Ochoa on 03-04-2025 Nucleated RBC/100 WBC (Bld) [Ratio] 0 % 0-[address] [facility] Platelet countOrdered By: Chino Ochoa on 03-04-2025 Platelets (Bld) [#/Vol] 189 10*3/uL 150-[address] [facility] Potassium measurement (mass/ volume)Ordered By: Chris Ochoa on 03-04-2025 Potassium (Unsp spec) [Mass/Vol] 5.2 mmol/L High 3.3-5.[address] [facility] Protein Test strip Ql (U)Ord ered By: Nicola Madison on 03-04-2025 Protein Ql (U) 100 mg/dl High Negative [facility] RBC Auto (Bld) [#/Vol]Ordere d By: Chris Ochoa on 03-04-2025 RBC (Bld) [#/Vol] 3.74 10*6/uL Low 4.6-6.2 [facility] Serum creatinine measurement (mass/volume)Ordered By: Chris Ochoa on 03-04-2025 Creatinine [Mass/Vol] 1.86 mg/dL High 0.70-1.20 [facility] Serum glucose measurement (m ass/volume)Ordered By: Chris Ochoa on 03-04-2025 Glucose [Mass/Vol] 124 mg/dL High 70-99 [facility] Serum or plasma calcium kingsley urement (mass/volume)Ordered By: Chris Ochoa on 03-04-2025 Calcium [Mass/Vol] 9.3 mg/dL 7.6-11.0 [facility] Serum or plasma urea nitroge n measurement (mass/volume)Ordered By: Chris Ochoa on 03-04-2025 Urea nitrogen [Mass/Vol] 37 mg/dL High 4-[address] [facility] Sodium levelOrdered By: Chris Ochoa on 03-04-2025 Sodium [Moles/Vol] 138 mmol/L 133-145 [facility] Squamous epithelial cells de tection in urine sediment by light microscopyOrdered By: Nicola Madison on 03-04-2025 Epithelial cells.squamous LM Ql (Urine sed) 0 SEEN /hpf 0-[address] [facility] TSH DL <= 0.005 mIU/L QnOrde red By: Nicola Madison on 03-04-2025 TSH Qn 3.780 uIU/mL 0.300-4.[address] [facility] Thyroid Stim Hormone (TSH)on 03-04-2025 TSH 3.780 uIU/mL Normal 0.300-4.[address] [facility] Comment on above: Performed By: #### L 501.9520, L501.5200, L501.9985 ####[facility] [address] [place], [place], [id number] Troponin T.cardiac [Mass/vol ume] in Serum or Plasma by High sensitivity methodOrdered By: Chris Ochoa on 03-04-2025 Troponin T.cardiac High sensitivity method [Mass/Vol] 42 ng/L High <[address] [facility] Troponin T.cardiac High sensitivity method [Mass/Vol] 45 ng/L High <[address] [facility] Troponin T.cardiac High sensitivity method [Mass/Vol] 44 ng/L High <[address] [facility] Urinalysis, Completeon 03-04 RBC 5-10 SEEN Normal 0-[address] [facility] Comment on above: Order Comment: CLEAN CATCH Performed By: #### L 400.0001 ####[facility] [address] [place], [place], [id number] BACTERIA 2+ /hpf Normal None Seen [facility] Comment on above: Order Comment: CLEAN CATCH Performed By: #### L 400.0001 ####[facility] [address] [place], [address] WBC >100 SEEN Normal 0-[address] [facility] Comment on above: Order Comment: CLEAN CATCH Performed By: #### L 400.0001 ####[facility] [address] [place], [address] EPI,SQUAMOUS 0 SEEN Normal 0-[address] [facility] Comment on above: Order Comment: CLEAN CATCH Performed By: #### L 400.0001 ####[facility] [address] [place], [place], [address] Mucus Ql (Urine sed) 0 SEEN Normal [facility] Comment on above: Order Comment: CLEAN CATCH Performed By: #### L 400.0001 ####[facility] [address] [place], [place], [id number] Urine clarityOrdered By: Jacob Madison on 03-04-2025 Clarity (U) Cloudy Clear [facility] Urine color determinationOrd ered By: Nicola Madison on 03-04-2025 Color (U) Yellow Yellow [facility] Urine glucose detectionOrder ed By: Nicola Madison on 03-04-2025 Glucose Ql (U) Normal mg/dl Normal [facility] Urine leukocyte esterase det ection by dipstickOrdered By: Nicola Madison on 03-04-2025 Leukocyte esterase Test strip Ql (U) 500 /ul High Negative [facility] Urine pHOrdered By: Nicola stack on 03-04-2025 pH (U) 6.5 [pH] 5.0 - 8.[address] [facility] Urine sediment bacteria coun t by microscopy (number/high power field)Ordered By: Nicola Madison on 03-04-2025 Bacteria LM.HPF (Urine sed) [#/Area] 2 /[HPF] None Seen [facility] Urine specific gravity measu rementOrdered By: Nicola Madison on 03-04-2025 Specific gravity (U) [Rel density] 1.010 1.002-1.[address] [facility] Urine urobilinogen measureme ntOrdered By: Nicola Madison on 03-04-2025 Urobilinogen Ql (U) Normal mg/dl Normal [facility] White blood cell (WBC) count Ordered By: Chris Ochoa on 03-04-2025 WBC (Bld) [#/Vol] 7.6 10*3/uL 4.4-11.0 [facility] White blood cell countOrdere d By: Nicola Madison on 03-04-2025 White blood cell count >100 SEEN /hpf 0-[address] [facility] Absolute lymphocyte countOrd ered By: Russ Wallsangelo on 11-06-2024 Lymphocytes Auto (Unsp spec) [#/Vol] 0.82 10*3/uL Low 0.83-4.[address] [facility] Absolute neutrophil countOrd ered By: Russ Wallsangelo on 11-06-2024 Neutrophils (Bld) [#/Vol] 8.1 10*3/uL High 2.0-7.[address] [facility] Anion gap in Serum or Plasma Ordered By: Russ Zamora on 11-06-2024 Anion gap [Moles/Vol] 10 mmol/L 5- [facility] Automated lymphocyte count a s percentage of total leukocytesOrdered By: Russ Wallsangelo on 11-06-2024 Lymphocytes/100 WBC Auto (Unsp spec) 8.1 % Low - [facility] BUN/creatinine ratioOrdered By: Russ Wallsangelo on 11-06-2024 Urea nitrogen/Creatinine [Mass ratio] 19.3 mg/mg 10- [facility] Basophil percentageOrdered B y: Russ Zamora on 11-06-2024 Basophils/100 WBC (Bld) 0.3 % 0-1 [facility] Bilirubin, totalOrdered By: Russ Wallsangelo on 11-06-2024 Bilirubin [Mass/Vol] 0.46 mg/dL 0.00-1.30 [facility] CBC W/Diff, Automatedon 10-19 Absolute Lymph 0.82 X10 3/uL Low 0.83-4.[address] [facility] Comment on above: Performed By: #### L 500.4050, L504.2610, L100.0100 ####[facility] [address] [place], [address] Absolute Neut 8.1 X10 3/uL High 2.0-7.[address] [facility] Comment on above: Performed By: #### L 500.4050, L504.2610, L100.0100 ####[facility] [address] [place], [address] Basophils/100 WBC (Bld) 0.3 % Normal 0-1 [facility] Comment on above: Performed By: #### L 500.4050, L504.2610, L100.0100 ####[facility] [address] [place], [address] Eosinophils/100 WBC (Bld) 1.7 % Normal 0-[address] [facility] Comment on above: Performed By: #### L 500.4050, L504.2610, L100.0100 ####[facility] [address] [place], [address] Erythrocyte distribution width (RBC) [Ratio] 16.8 % High 11.6-14.[address] [facility] Comment on above: Performed By: #### L 500.4050, L504.2610, L100.0100 ####[facility] [address] [place], [address] Hematocrit (Bld) [Volume fraction] 34.2 % Low 40-[address] [facility] Comment on above: Performed By: #### L 500.4050, L504.2610, L100.0100 ####[facility] [address] [place], [address] Hemoglobin (Bld) [Mass/Vol] 10.7 g/dL Low 13.0-16.[address] [facility] Comment on above: Performed By: #### L 500.4050, L504.2610, L100.0100 ####[facility] [address] [place], [address] IG% 0.500 Normal 0.0-0.[address] [facility] Comment on above: Result Comment: IG% - Immature Granulocytes (promyelocytes, myelocytes andmetamyelocytes) > 1% indicates that a LEFT SHIFT is Present. Performed By: #### L 500.4050, L504.2610, L100.0100 ####[facility] [address] [place], [address] Lymphocytes/100 WBC (Bld) 8.1 % Low 19-[address] [facility] Comment on above: Performed By: #### L 500.4050, L504.2610, L100.0100 ####[facility] [address] [place], [address] MCH (RBC) [Entitic mass] 27.4 pg Normal 27.0-32.[address] [facility] Comment on above: Performed By: #### L 500.4050, L504.2610, L100.0100 ####[facility] [address] [place], [address] MCHC (RBC) [Mass/Vol] 31.3 g/dL Low 32-36 [facility] Comment on above: Performed By: #### L 500.4050, L504.2610, L100.0100 ####[facility] [address] [place], [address] MCV (RBC) [Entitic vol] 87.5 fL Normal 80-94 [facility] Comment on above: Performed By: #### L 500.4050, L504.2610, L100.0100 ####[facility] [address] [place], [address] Monocytes/100 WBC (Bld) 8.8 % Normal 0-10 [facility] Comment on above: Performed By: #### L 500.4050, L504.2610, L100.0100 ####[facility] [address] [place], [address] Neutrophils/100 WBC (Bld) 80.6 % High 47-[address] [facility] Comment on above: Performed By: #### L 500.4050, L504.2610, L100.0100 ####[facility] [address] [place], [address] Nucleated RBC (Bld) [#/Vol] 0 10*3/uL Normal 0-[address] [facility] Comment on above: Performed By: #### L 500.4050, L504.2610, L100.0100 ####[facility] [address] [place], [address] Platelet mean volume (Bld) [Entitic vol] 10.4 fL Normal 6.2-12.[address] [facility] Comment on above: Performed By: #### L 500.4050, L504.2610, L100.0100 ####[facility] [address] [place], [address] Platelets (Bld) [#/Vol] 212 10*3/uL Normal 150-[address] [facility] Comment on above: Performed By: #### L 500.4050, L504.2610, L100.0100 ####[facility] [address] [place], [address] RBC (Bld) [#/Vol] 3.91 10*6/uL Low 4.6-6.2 [facility] Comment on above: Performed By: #### L 500.4050, L504.2610, L100.0100 ####[facility] [address] [place], [address] RDW SD 53.5 fl High 35.1-43.[address] [facility] Comment on above: Performed By: #### L 500.4050, L504.2610, L100.0100 ####[facility] [address] [place], [address] WBC (Bld) [#/Vol] 10.1 10*3/uL Normal 4.4-11.0 [facility] Comment on above: Performed By: #### L 500.4050, L504.2610, L100.0100 ####[facility] [address] [place], [address] Carbon dioxide, total [Moles /volume] in Central venous bloodOrdered By: Russ Zamora on 11-06-2024 CO2 [Moles/Vol] 25.2 mmol/L 21.0-32.[address] [facility] Chloride assayOrdered By: Flores Zamora on 11-06-2024 Chloride [Moles/Vol] 105 mmol/L 98-108 [facility] Comprehensive Metabolic Prof ilon 11-06-2024 Albumin [Mass/Vol] 3.8 g/dL Normal 3.4-4.8 [facility] Comment on above: Performed By: #### L 500.4050, L504.2610, L100.0100 ####[facility] [address] [place], [address] Albumin/Globulin [Mass ratio] 0.9 {ratio} Normal 0.9-2.[address] [facility] Comment on above: Performed By: #### L 500.4050, L504.2610, L100.0100 ####[facility] [address] [place], [address] ALK PHOS 72 U/L Normal 40-[address] [facility] Comment on above: Performed By: #### L 500.4050, L504.2610, L100.0100 ####[facility] [address] [place], [address] ALT [Catalytic activity/Vol] 10 U/L Normal <=[address] [facility] Comment on above: Performed By: #### L 500.4050, L504.2610, L100.0100 ####[facility] [address] [place], [address] AST [Catalytic activity/Vol] 16 U/L Normal <=[address] [facility] Comment on above: Performed By: #### L 500.4050, L504.2610, L100.0100 ####[facility] [address], [address] Bilirubin [Mass/Vol] 0.46 mg/dL Normal 0.00-1.30 [facility] Comment on above: Performed By: #### L 500.4050, L504.2610, L100.0100 ####[facility] [address] [place], [address] BUN/CRE 19.3 RATIO Normal 10-[address] [facility] Comment on above: Performed By: #### L 500.4050, L504.2610, L100.0100 ####[facility] [address] [place], [address] Calcium [Mass/Vol] 9.1 mg/dL Normal 7.6-11.0 [facility] Comment on above: Performed By: #### L 500.4050, L504.2610, L100.0100 ####[facility] [address] [place], [address] Chloride [Moles/Vol] 105 mmol/L Normal 98-108 [facility] Comment on above: Performed By: #### L 500.4050, L504.2610, L100.0100 ####[facility] [address] [place], [address] CO2 [Moles/Vol] 25.2 mmol/L Normal 21.0-32.[address] [facility] Comment on above: Performed By: #### L 500.4050, L504.2610, L100.0100 ####[facility] [address] [place], [address] Creatinine [Mass/Vol] 1.87 mg/dL High 0.70-1.20 [facility] Comment on above: Performed By: #### L 500.4050, L504.2610, L100.0100 ####[facility] [address] [place], [address] ECRCL 32.00 ml/min Low 50-[address] [facility] Comment on above: Performed By: #### L 500.4050, L504.2610, L100.0100 ####[facility] [address] [place], [address] GAP 10 Normal 5-[address] [facility] Comment on above: Performed By: #### L 500.4050, L504.2610, L100.0100 ####[facility] [address] [place], [address] GFR/1.73 sq M.predicted among non-blacks MDRD (S/P/Bld) [Vol rate/Area] 36 mL/min/{1.73_m2} Low >60 [facility] Comment on above: Result Comment: mL/m in/1.73m2 CKD-EPI Creatinine Equation (2020) Performed By: #### L 500.4050, L504.2610, L100.0100 ####[facility] [address] [place], [address] Globulin (S) [Mass/Vol] 4.1 g/dL Normal 2.2-4.2 [facility] Comment on above: Performed By: #### L 500.4050, L504.2610, L100.0100 ####[facility] [address] [place], [address] Glucose [Mass/Vol] 132 mg/dL High 70-99 [facility] Comment on above: Performed By: #### L 500.4050, L504.2610, L100.0100 ####[facility] [address] [place], [address] Potassium [Moles/Vol] 4.8 mmol/L Normal 3.3-5.1 [facility] Comment on above: Performed By: #### L 500.4050, L504.2610, L100.0100 ####[facility] [address] [place], [address] Sodium [Moles/Vol] 140 mmol/L Normal 133-145 [facility] Comment on above: Performed By: #### L 500.4050, L504.2610, L100.0100 ####[facility] [address] [place], [address] T PROT 7.9 g/dL Normal 5.9-8.[address] [facility] Comment on above: Performed By: #### L 500.4050, L504.2610, L100.0100 ####[facility] [address] [place], [address] Urea nitrogen [Mass/Vol] 36 mg/dL High 4-[address] [facility] Comment on above: Performed By: #### L 500.4050, L504.2610, L100.0100 ####[facility] [address] [place], [address] Eosinophil percentageOrdered By: Russ Zamora on 11-06-2024 Eosinophils/100 WBC (Bld) 1.7 % 0-[address] [facility] Erythrocyte distribution wid th ratioOrdered By: Russ Zamora on 11-06-2024 Erythrocyte distribution width (RBC) [Ratio] 16.8 % High 11.6-14.[address] [facility] Erythrocyte distribution wid th standard deviationOrdered By: Russ Zamora on 11-06-2024 Erythrocyte distribution width (RBC) [Entitic vol] 53.5 fL High 35.1-43.9 [facility] Erythrocyte distribution width (RBC) [Ratio] 53.5 fl High 35.1-43.[address] [facility] Estimation of creatinine rowdy aranceOrdered By: Russ Zaomra on 11-06-2024 Estimated Creatinine Clearance Calc 32.00 ml/min Low 50-[address] [facility] GFR/1.73 sq M.predicted kaylyn g non-blacks MDRD (S/P/Bld) [Vol rate/Area]Ordered By: Russ Zamora on 11-06-2024 Estimated GFR (MDRD) Non-Af Amer 36 Low >[address] [facility] Comment on above: mL/min/1.73m2 CKD-EP I Creatinine Equation (2020) Glomerular filtration rate ( GFR) estimation/1.73 sq m using serum, plasma, or whole bOrdered By: Russ Zamora on 11-06-2024 GFR/1.73 sq M.predicted among non-blacks MDRD (S/P/Bld) [Vol rate/Area] 36 mL/min/{1.73_m2} Low >60 [facility] Comment on above: mL/min/1.73m2 CKD-EP I Creatinine Equation (2020) Hematocrit Auto (Bld) [Volum e fraction]Ordered By: Russ Zamora on 11-06-2024 Hematocrit (Bld) [Volume fraction] 34.2 % Low 40-[address] [facility] Hemoglobin measurementOrdere d By: Russ Zamora on 11-06-2024 Hemoglobin (Bld) [Mass/Vol] 10.7 g/dL Low 13.0-16.[address] [facility] Immature granulocytes/100 WB C Auto (Bld)Ordered By: Russ Zamora on 11-06-2024 Immature granulocytes/100 WBC (Bld) 0.500 % 0.0-0.[address] [facility] Comment on above: IG% - Immature Granu locytes (promyelocytes, myelocytes and metamyelocytes) > 1% indicates that a LEFT SHIFT is Present. LDHon 11-06-2024 LDH 135 U/L Normal 87-[address] [facility] Comment on above: Order Comment: 1 Performed By: #### L 500.4050, L504.2610, L100.0100 ####[facility] [address] [place], [place], [id number] Laboratory - Chemistry and C hemistry - challengeOrdered By: Russ Zamora on 11-06-2024 AST [Catalytic activity/Vol] 16 U/L <[address] [facility] Lactate dehydrogenase (LDH) measurementOrdered By: Russ Zamora on 11-06-2024 LDH [Catalytic activity/Vol] 135 U/L 87-[address] [facility] Lymphocytes Auto (Unsp spec) [#/Vol]Ordered By: Russ Zamora on 11-06-2024 Lymphocytes (Bld) [#/Vol] 0.82 10*3/uL Low 0.83-4.[address] [facility] Lymphocytes/100 WBC Auto (Un sp spec)Ordered By: Russ Zamora on 11-06-2024 Lymphocytes/100 WBC (Bld) 8.1 % Low 19-[address] [facility] MCV (mean corpuscular volume ) determinationOrdered By: Russ Zamora on 11-06-2024 MCV (RBC) [Entitic vol] 87.5 fL 80-94 [facility] Mean corpuscular hemoglobin (MCH) determinationOrdered By: Russ Zamora on 11-06-2024 MCH (RBC) [Entitic mass] 27.4 pg 27.0-32.[address] [facility] Mean corpuscular hemoglobin concentration (MCHC) determinationOrdered By: Russ Zamora on 11-06-2024 MCHC (RBC) [Mass/Vol] 31.3 g/dL Low 32-36 [facility] Mean platelet volume determi nationOrdered By: Russ Zamora on 11-06-2024 Platelet mean volume (Bld) [Entitic vol] 10.4 fL 6.2-12.[address] [facility] Monocyte percentageOrdered B y: Russ Zamora on 11-06-2024 Monocytes/100 WBC (Bld) 8.8 % 0-10 [facility] Neutrophil percentageOrdered By: Russ Zamora on 11-06-2024 Neutrophils/100 WBC (Bld) 80.6 % High 47-[address] [facility] Nucleated red blood cell per centageOrdered By: Russ Zamora on 11-06-2024 Nucleated RBC/100 WBC (Bld) [Ratio] 0 % 0-[address] [facility] Oncology Visit Reporton - 0-2024 Oncology Visit Report Normal [facility] Platelet countOrdered By: Flores Zamora on 11-06-2024 Platelets (Bld) [#/Vol] 212 10*3/uL 150-[address] [facility] Potassium (Unsp spec) [Mass/ Vol]Ordered By: Russ Zamora on 11-06-2024 Potassium [Moles/Vol] 4.8 mmol/L 3.3-5.1 [facility] Potassium measurement (mass/ volume)Ordered By: Russ Zamora on 11-06-2024 Potassium (Unsp spec) [Mass/Vol] 4.8 mmol/L 3.3-5.[address] [facility] RBC Auto (Bld) [#/Vol]Ordere d By: Russ Zamora on 11-06-2024 RBC (Bld) [#/Vol] 3.91 10*6/uL Low 4.6-6.2 [facility] Serum creatinine measurement (mass/volume)Ordered By: Russ Zamora on 11-06-2024 Creatinine [Mass/Vol] 1.87 mg/dL High 0.70-1.20 [facility] Serum globulin measurementOr dered By: Russ Zamora on 11-06-2024 Globulin (S) [Mass/Vol] 4.1 g/dL 2.2-4.2 [facility] Serum glucose measurement (m ass/volume)Ordered By: Russ Zamora on 11-06-2024 Glucose [Mass/Vol] 132 mg/dL High 70-99 [facility] Serum or plasma alanine ortiz otransferase (ALT) measurementOrdered By: Russ Zamora on 11-06-2024 ALT [Catalytic activity/Vol] 10 U/L <[address] [facility] Serum or plasma albumin kings[place] urement (mass/volume)Ordered By: Russ Zamora on 11-06-2024 Albumin [Mass/Vol] 3.8 g/dL 3.4-4.8 [facility] Serum or plasma albumin/glob ulin mass ratioOrdered By: Russ Zamora on 11-06-2024 Albumin/Globulin [Mass ratio] 0.9 {ratio} 0.9-2.[address] [facility] Serum or plasma alkaline roosevelt sphatase measurementOrdered By: Russ Zamora on 11-06-2024 ALP [Catalytic activity/Vol] 72 U/L 40-[address] [facility] Serum or plasma calcium kingsley urement (mass/volume)Ordered By: Russ Zamora on 11-06-2024 Calcium [Mass/Vol] 9.1 mg/dL 7.6-11.0 [facility] Serum or plasma urea nitroge n measurement (mass/volume)Ordered By: Russ Zamora on 11-06-2024 Urea nitrogen [Mass/Vol] 36 mg/dL High 4-[address] [facility] Sodium levelOrdered By: Esau Zamora on 11-06-2024 Sodium [Moles/Vol] 140 mmol/L 133-145 [facility] Total proteinOrdered By: Frantz Zamora on 11-06-2024 Protein [Mass/Vol] 7.9 g/dL 5.9-8.4 [facility] White blood cell (WBC) count Ordered By: Russ Zamora on 11-06-2024 WBC (Bld) [#/Vol] 10.1 10*3/uL 4.4-11.0 [facility] CREATININE FINGERSTICKon Creatinine [Mass/Vol] 1.5 mg/dL High 0.70-1.30 [facility] Comment on above: Performed By: #### L 9100.0200 ####[facility] [address] [place], [place], [address] GFR/1.73 sq M.predicted among non-blacks MDRD (S/P/Bld) [Vol rate/Area] 48.0000 mL/min/{1.73_m2} Low >[address] [facility] Comment on above: Performed By: #### L 9100.0200 ####[facility] [address] [place], [address] CT Chest AND Abd W/ Contrast on 10-30-2024 CT Chest AND Abd W/ Contrast Normal [facility] Creatinine measurement at be dsideOrdered By: Russ Zamora on 10-30-2024 Creatinine [Mass/Vol] 1.5 mg/dL High 0.70-1.30 [facility] EGFROrdered By: Russ Zamora on 10-30-2024 GFR/1.73 sq M.predicted among non-blacks MDRD (S/P/Bld) [Vol rate/Area] 48.0000 mL/min/{1.73_m2} Low >[address] [facility] Pulmonary Visit Reporton Pulmonary Visit Report Normal [facility] Hemoglobin A1con 10-21-2024 HbA1c (Bld) [Mass fraction] 6.6 % Normal <=5.[address] [facility] Comment on above: Performed By: #### L 501.9985 ####[facility] [address] [place], [address] Hemoglobin A1c percentageOrd ered By: Tonio Fajardo on 10-20-2024 HbA1c (Bld) [Mass fraction] 6.6 % >5.[address] [facility] 6 Minute Walk Teston 28-2 025 6 Minute Walk Test Normal [facility] Absolute neutrophil countOrd ered By: Leslie Arriaga on 09-25-2024 Neutrophils (Bld) [#/Vol] 6.7 10*3/uL 2.0-7.[address] [facility] BNP (brain natriuretic pepti de measurement)Ordered By: Leslie Arriaga on 09-25-2024 Natriuretic peptide B (Bld) [Mass/Vol] 183.7 pg/mL High 0-[address] [facility] BNP,B-Type NATRIURETIC PEPTI Adrienne 09-25-2024 Natriuretic peptide B (Bld) [Mass/Vol] 183.7 pg/mL High 0-[address] [facility] Comment on above: Performed By: #### L 100.0100, L503.6620, L500.2500 ####[facility] [address] [place], [address] Basic Metabolic Profile (BMP )on 09-25-2024 BUN/CRE 15.4 RATIO Normal 10-[address] [facility] Comment on above: Performed By: #### L 100.0100, L503.6620, L500.2500 ####[facility] [address] [place], [address] CA,Total 9.1 mg/dL Normal 8.5-10.[address] [facility] Comment on above: Performed By: #### L 100.0100, L503.6620, L500.2500 ####[facility] [address] [place], [address] Chloride [Moles/Vol] 105 mmol/L Normal 98-107 [facility] Comment on above: Performed By: #### L 100.0100, L503.6620, L500.2500 ####[facility] [address] [place], [address] CO2 [Moles/Vol] 28.0 mmol/L Normal 21.0-32.[address] [facility] Comment on above: Performed By: #### L 100.0100, L503.6620, L500.2500 ####[facility] [address] [place], [address] Creatinine [Mass/Vol] 2.21 mg/dL High 0.70-1.30 [facility] Comment on above: Result Comment: The validity of the calculated GFR GFRAA in patients over70 years has not been determined. Clinical correlation isessential. Performed By: #### L 100.0100, L503.6620, L500.2500 ####[facility] [address] [place], [address] EST GFR - AA 37 mL/min Low >[address] [facility] Comment on above: Result Comment: Afri can Cameroonian GFR Calc Performed By: #### L 100.0100, L503.6620, L500.2500 ####[facility] [address] [place], [address] GAP 5 Normal 5-[address] [facility] Comment on above: Performed By: #### L 100.0100, L503.6620, L500.2500 ####[facility] [address] [place], [address] GFR/1.73 sq M.predicted among non-blacks MDRD (S/P/Bld) [Vol rate/Area] 31 mL/min/{1.73_m2} Low >60 [facility] Comment on above: Result Comment: Non- GFR Calc Performed By: #### L 100.0100, L503.6620, L500.2500 ####[facility] [address] [place], [address] Glucose [Mass/Vol] 127 mg/dL High 74-106 [facility] Comment on above: Result Comment: Fast ing Glucose result greater than or equal to 126 mg/dLsuggests DIABETES MELLITUS per A.D.A. criteria. Performed By: #### L 100.0100, L503.6620, L500.2500 ####[facility] [address] [place], [address] Potassium [Moles/Vol] 4.3 mmol/L Normal 3.5-5.1 [facility] Comment on above: Performed By: #### L 100.0100, L503.6620, L500.2500 ####[facility] [address] [place], [address] Sodium [Moles/Vol] 138 mmol/L Normal 136-145 [facility] Comment on above: Performed By: #### L 100.0100, L503.6620, L500.2500 ####[facility] [address] [place], [address] Urea nitrogen [Mass/Vol] 34 mg/dL High 7-[address] [facility] Comment on above: Performed By: #### L 100.0100, L503.6620, L500.2500 ####[facility] [address] [place], [address] Basophil percentageOrdered B y: Leslie Arriaga on 09-25-2024 Basophils/100 WBC (Bld) 0.6 % 0-1 [facility] Blood urea nitrogen (BUN)/cr eatinine ratioOrdered By: Leslie Arriaga on 09-25-2024 Urea nitrogen/Creatinine [Mass ratio] 15.4 mg/mg 10-[address] [facility] CBC W/Diff, Automatedon Absolute Lymph 0.91 X10 3/uL Normal 0.83-4.[address] [facility] Comment on above: Performed By: #### L 100.0100, L503.6620, L500.2500 ####[facility] [address] [place], [address] Absolute Neut 6.7 X10 3/uL Normal 2.0-7.[address] [facility] Comment on above: Performed By: #### L 100.0100, L503.6620, L500.2500 ####[facility] [address] [place], [address] Basophils/100 WBC (Bld) 0.6 % Normal 0-1 [facility] Comment on above: Performed By: #### L 100.0100, L503.6620, L500.2500 ####[facility] [address] [place], [address] Eosinophils/100 WBC (Bld) 1.1 % Normal 0-[address] [facility] Comment on above: Performed By: #### L 100.0100, L503.6620, L500.2500 ####[facility] [address] [place], [address] Erythrocyte distribution width (RBC) [Ratio] 16.2 % High 11.6-14.[address] [facility] Comment on above: Performed By: #### L 100.0100, L503.6620, L500.2500 ####[facility] [address] [place], [address] Hematocrit (Bld) [Volume fraction] 36.0 % Low 40-[address] [facility] Comment on above: Performed By: #### L 100.0100, L503.6620, L500.2500 ####[facility] [address] [place], [address] Hemoglobin (Bld) [Mass/Vol] 11.1 g/dL Low 13.0-16.[address] [facility] Comment on above: Performed By: #### L 100.0100, L503.6620, L500.2500 ####[facility] [address] [place], [address] IG% 0.700 Normal 0.0-0.[address] [facility] Comment on above: Result Comment: IG% - Immature Granulocytes (promyelocytes, myelocytes andmetamyelocytes) > 1% indicates that a LEFT SHIFT is Present. Performed By: #### L 100.0100, L503.6620, L500.2500 ####[facility] [address] [place], [address] Lymphocytes/100 WBC (Bld) 10.4 % Low 19-[address] [facility] Comment on above: Performed By: #### L 100.0100, L503.6620, L500.2500 ####[facility] [address] [place], [address] MCH (RBC) [Entitic mass] 27.7 pg Normal 27.0-32.[address] [facility] Comment on above: Performed By: #### L 100.0100, L503.6620, L500.2500 ####[facility] [address] [place], [address] MCHC (RBC) [Mass/Vol] 30.8 g/dL Low 32-36 [facility] Comment on above: Performed By: #### L 100.0100, L503.6620, L500.2500 ####[facility] [address] [place], [address] MCV (RBC) [Entitic vol] 89.8 fL Normal 80-94 [facility] Comment on above: Performed By: #### L 100.0100, L503.6620, L500.2500 ####[facility] [address] [place], [address] Monocytes/100 WBC (Bld) 10.3 % High 0-10 [facility] Comment on above: Performed By: #### L 100.0100, L503.6620, L500.2500 ####[facility] [address] [place], [address] Neutrophils/100 WBC (Bld) 76.9 % High 47-[address] [facility] Comment on above: Performed By: #### L 100.0100, L503.6620, L500.2500 ####[facility] [address] [place], [address] Nucleated RBC (Bld) [#/Vol] 0 10*3/uL Normal 0-[address] [facility] Comment on above: Performed By: #### L 100.0100, L503.6620, L500.2500 ####[facility] [address] [place], [address] Platelet mean volume (Bld) [Entitic vol] 10.5 fL Normal 6.2-12.[address] [facility] Comment on above: Performed By: #### L 100.0100, L503.6620, L500.2500 ####[facility] [address] [place], [address] Platelets (Bld) [#/Vol] 256 10*3/uL Normal 150-[address] [facility] Comment on above: Performed By: #### L 100.0100, L503.6620, L500.2500 ####[facility] [address] [place], [address] RBC (Bld) [#/Vol] 4.01 10*6/uL Low 4.6-6.2 [facility] Comment on above: Performed By: #### L 100.0100, L503.6620, L500.2500 ####[facility] [address] [place], [address] RDW SD 52.7 fl High 35.1-43.[address] [facility] Comment on above: Performed By: #### L 100.0100, L503.6620, L500.2500 ####[facility] [address] [place], [address] WBC (Bld) [#/Vol] 8.7 10*3/uL Normal 4.4-11.0 [facility] Comment on above: Performed By: #### L 100.0100, L503.6620, L500.2500 ####[facility] [address] [place], [address] Carbon dioxide measurementOr dered By: Leslie Arriaga on 09-25-2024 CO2 [Moles/Vol] 28.0 mmol/L 21.0-32.[address] [facility] Cardiology Visit Reporton Cardiology Visit Report Normal [facility] Chest PA and Lateralon 09-25 Chest PA and Lateral Normal [facility] Chloride measurementOrdered By: Leslie Arriaga on 09-25-2024 Chloride [Moles/Vol] 105 mmol/L 98-107 [facility] Eosinophil percentageOrdered By: Leslie Arriaga on 09-25-2024 Eosinophils/100 WBC (Bld) 1.1 % 0-[address] [facility] Erythrocyte distribution wid th ratioOrdered By: Leslie Arriaga on 09-25-2024 Erythrocyte distribution width (RBC) [Ratio] 16.2 % High 11.6-14.[address] [facility] Erythrocyte distribution wid th standard deviationOrdered By: Leslie Arriaga on 09-25-2024 Erythrocyte distribution width (RBC) [Entitic vol] 52.7 fL High 35.1-43.9 [facility] Estimated glomerular filtrat ion rate (GFR) AmericanOrdered By: Leslie Arriaga on 09-25-2024 Estimated GFR (MDRD) Amer 37 mL/min Low >[address] [facility] Comment on above: GFR Calc Glomerular filtration rate ( GFR) estimationOrdered By: Leslie Arriaga on 09-25-2024 Estimated GFR (MDRD) Non-Af Amer 31 mL/min Low >[address] [facility] Comment on above: Non- GFR Calc Glucose measurementOrdered B y: Leslie Arriaga on 09-25-2024 Glucose [Mass/Vol] 127 mg/dL High 74-106 [facility] Comment on above: Fasting Glucose resu lt greater than or equal to 126 mg/dL suggests DIABETES MELLITUS per A.D.A. criteria. Hematocrit Auto (Bld) [Volum e fraction]Ordered By: Leslie Arriaga on 09-25-2024 Hematocrit (Bld) [Volume fraction] 36.0 % Low 40-[address] [facility] Hemoglobin measurementOrdere d By: Leslie Arriaga on 09-25-2024 Hemoglobin (Bld) [Mass/Vol] 11.1 g/dL Low 13.0-16.[address] [facility] Immature granulocytes/100 WB C Auto (Bld)Ordered By: Leslie Arriaga on 09-25-2024 Immature granulocytes/100 WBC (Bld) 0.700 % 0.0-0.[address] [facility] Comment on above: IG% - Immature Granu locytes (promyelocytes, myelocytes and metamyelocytes) > 1% indicates that a LEFT SHIFT is Present. Lymphocytes Auto (Unsp spec) [#/Vol]Ordered By: Leslie Arriaga on 09-25-2024 Lymphocytes (Bld) [#/Vol] 0.91 10*3/uL 0.83-4.[address] [facility] Lymphocytes/100 WBC Auto (Un sp spec)Ordered By: Leslie Arriaga on 09-25-2024 Lymphocytes/100 WBC (Bld) 10.4 % Low 19-[address] [facility] MCV (mean corpuscular volume ) determinationOrdered By: Leslie Arriaga on 09-25-2024 MCV (RBC) [Entitic vol] 89.8 fL 80-94 [facility] Mean corpuscular hemoglobin (MCH) determinationOrdered By: Leslie Arriaga on 09-25-2024 MCH (RBC) [Entitic mass] 27.7 pg 27.0-32.[address] [facility] Mean corpuscular hemoglobin concentration (MCHC) determinationOrdered By: Leslie Arriaga on 09-25-2024 MCHC (RBC) [Mass/Vol] 30.8 g/dL Low 32-36 [facility] Mean platelet volume determi nationOrdered By: Leslie Arriaga on 09-25-2024 Platelet mean volume (Bld) [Entitic vol] 10.5 fL 6.2-12.[address] [facility] Monocyte percentageOrdered B y: Leslie Arriaga on 09-25-2024 Monocytes/100 WBC (Bld) 10.3 % High 0-10 [facility] Neutrophil percentageOrdered By: Leslie Arriaga on 09-25-2024 Neutrophils/100 WBC (Bld) 76.9 % High 47-[address] [facility] Nucleated red blood cell per centageOrdered By: Leslie Arriaga on 09-25-2024 Nucleated RBC/100 WBC (Bld) [Ratio] 0 % 0-[address] [facility] Platelet countOrdered By: Linsey Arriaga on 09-25-2024 Platelets (Bld) [#/Vol] 256 10*3/uL 150-[address] [facility] Potassium measurementOrdered By: Leslie Arriaga on 09-25-2024 Potassium [Moles/Vol] 4.3 mmol/L 3.5-5.1 [facility] RBC Auto (Bld) [#/Vol]Ordere d By: Leslie Arriaga on 09-25-2024 RBC (Bld) [#/Vol] 4.01 10*6/uL Low 4.6-6.2 [facility] Serum anion gap measurementO rdered By: Leslie Arriaga on 09-25-2024 Anion gap [Moles/Vol] 5 mmol/L 5-15 [facility] Serum or plasma calcium kings[place] urement (mass/volume)Ordered By: Leslie Arriaga on 09-25-2024 Calcium [Mass/Vol] 9.1 mg/dL 8.5-10.1 [facility] Serum or plasma creatinine m easurement (mass/volume)Ordered By: Leslie Arriaga on 09-25-2024 Creatinine [Mass/Vol] 2.21 mg/dL High 0.70-1.30 [facility] Comment on above: The validity of the calculated GFR & GFRAA in patients over 70 years has not been determined. Clinical correlation is essential. Serum or plasma urea nitroge n measurement (mass/volume)Ordered By: Leslie Arriaga on 09-25-2024 Urea nitrogen [Mass/Vol] 34 mg/dL High 7-[address] [facility] Sodium levelOrdered By: Brian Arriaga on 09-25-2024 Sodium [Moles/Vol] 138 mmol/L 136-145 [facility] White blood cell (WBC) count Ordered By: Leslie Santiagoell on 09-25-2024 WBC (Bld) [#/Vol] 8.7 10*3/uL 4.4-11.0 [facility] Culture, Fungus 8482on 08-04 CUF Normal [facility] Comment on above: Performed By: #### M 100.4001, M100.1999, M600.2000, M100.3000 ####[facility] [address] [place], [address] Culture, Anaerobic Any Sourc talat 07-09-2024 CUAN Prevotella and Porphyromonas species are generally SUSCEPTIBLE to Cefoxitin, Chloramphenicol, and Metronidazole and are usually RESISTANT to Penicillin. Prevotella oralis Beta Lactamase-Reportable [facility] Comment on above: Performed By: #### M 100.4001, M100.1999, M600.2000, M100.3000 ####[facility] [address] [place], [address] Wound Cultureon 07-05-[address] WC [address] [facility] Comment on above: Performed By: #### M 100.4001, M100.2000, M600.2000, M100.3000 ####[facility] [address] [place], [address] Gram Stainon 07-04-2024 GS [facility] Comment on above: Performed By: #### M 100.4001, M100.2000, M600.2000, M100.3000 ####[facility] [address] [place], [address] Bacteria identified Anaer cx Nom (Unsp spec)Ordered By: Joaquim Suárez on 07-03-2024 Anaerobic Culture Prevotella oralis Abnormal [facility] Fungus identified Cx Nom (Un sp spec)Ordered By: Joaquim Suárez on 07-03-2024 Fungal Culture Ann-Marie parapsilosis Abnormal [facility] Gram stainOrdered By: Bladimir Suárez on 07-03-2024 Microscopic observation Gram stain Nom (Unsp spec) [facility] Routine wound cultureOrdered By: Joaquim Suárez on 07-03-2024 Wound Culture Staphylococcus pseudintermediu Abnormal [facility] Lower Ext Art Exam w/o Exerc soco 06-17-2024 Lower Ext Art Exam w/o Exercis Normal [facility] Venous Duplex US - Hi Extre mon 06-17-2024 Venous Duplex US - Hi Extrem Normal [facility] CBC W/Diff, Automatedon - Absolute Lymph 0.94 X10 3/uL Normal 0.83-4.[address] [facility] Comment on above: Performed By: #### L 504.2610, L100.0100, L500.4050 ####[facility] [address] [place], [address] Absolute Neut 5.7 X10 3/uL Normal 2.0-7.[address] [facility] Comment on above: Performed By: #### L 504.2610, L100.0100, L500.4050 ####[facility] [address] [place], [address] Basophils/100 WBC (Bld) 0.6 % Normal 0-1 [facility] Comment on above: Performed By: #### L 504.2610, L100.0100, L500.4050 ####[facility] [address] [place], [address] Eosinophils/100 WBC (Bld) 2.5 % Normal 0-[address] [facility] Comment on above: Performed By: #### L 504.2610, L100.0100, L500.4050 ####[facility] [address] [place], [address] Erythrocyte distribution width (RBC) [Ratio] 16.3 % High 11.6-14.[address] [facility] Comment on above: Performed By: #### L 504.2610, L100.0100, L500.4050 ####[facility] [address] [place], [address] Hematocrit (Bld) [Volume fraction] 36.9 % Low 40-[address] [facility] Comment on above: Performed By: #### L 504.2610, L100.0100, L500.4050 ####[facility] [address] [place], [address] Hemoglobin (Bld) [Mass/Vol] 11.3 g/dL Low 13.0-16.[address] [facility] Comment on above: Performed By: #### L 504.2610, L100.0100, L500.4050 ####[facility] [address] [place], [address] IG% 1.400 High 0.0-0.[address] [facility] Comment on above: Result Comment: IG% - Immature Granulocytes (promyelocytes, myelocytes andmetamyelocytes) > 1% indicates that a LEFT SHIFT is Present. Performed By: #### L 504.2610, L100.0100, L500.4050 ####[facility] [address] [place], [address] Lymphocytes/100 WBC (Bld) 11.8 % Low 19-[address] [facility] Comment on above: Performed By: #### L 504.2610, L100.0100, L500.4050 ####[facility] [address] [place], [address] MCH (RBC) [Entitic mass] 27.2 pg Normal 27.0-32.[address] [facility] Comment on above: Performed By: #### L 504.2610, L100.0100, L500.4050 ####[facility] [address] [place], [address] MCHC (RBC) [Mass/Vol] 30.6 g/dL Low 32-36 [facility] Comment on above: Performed By: #### L 504.2610, L100.0100, L500.4050 ####[facility] [address] [place], [address] MCV (RBC) [Entitic vol] 88.7 fL Normal 80-94 [facility] Comment on above: Performed By: #### L 504.2610, L100.0100, L500.4050 ####[facility] [address] [place], [address] Monocytes/100 WBC (Bld) 11.6 % High 0-10 [facility] Comment on above: Performed By: #### L 504.2610, L100.0100, L500.4050 ####[facility] [address] [place], [address] Neutrophils/100 WBC (Bld) 72.1 % High 47-[address] [facility] Comment on above: Performed By: #### L 504.2610, L100.0100, L500.4050 ####[facility] [address] [place], [address] Nucleated RBC (Bld) [#/Vol] 0 10*3/uL Normal 0-[address] [facility] Comment on above: Performed By: #### L 504.2610, L100.0100, L500.4050 ####[facility] [address] [place], [address] Platelet mean volume (Bld) [Entitic vol] 9.9 fL Normal 6.2-12.[address] [facility] Comment on above: Performed By: #### L 504.2610, L100.0100, L500.4050 ####[facility] [address] [place], [address] Platelets (Bld) [#/Vol] 222 10*3/uL Normal 150-[address] [facility] Comment on above: Performed By: #### L 504.2610, L100.0100, L500.4050 ####[facility] [address] [place], [address] RBC (Bld) [#/Vol] 4.16 10*6/uL Low 4.6-6.2 [facility] Comment on above: Performed By: #### L 504.2610, L100.0100, L500.4050 ####[facility] [address] [place], [address] RDW SD 53.2 fl High 35.1-43.[address] [facility] Comment on above: Performed By: #### L 504.2610, L100.0100, L500.4050 ####[facility] [address] [place], [address] WBC (Bld) [#/Vol] 8.0 10*3/uL Normal 4.4-11.0 [facility] Comment on above: Performed By: #### L 504.2610, L100.0100, L500.4050 ####[facility] [address] [place], [address] Comprehensive Metabolic [facility] 05-05-2024 Albumin [Mass/Vol] 3.1 g/dL Low 3.2-5.0 [facility] Comment on above: Order Comment: 1 Performed By: #### L 504.2610, L100.0100, L500.4050 ####[facility] [address] [place], [address] Albumin/Globulin [Mass ratio] 0.6 {ratio} Low 0.9-2.[address] [facility] Comment on above: Order Comment: 1 Performed By: #### L 504.2610, L100.0100, L500.4050 ####[facility] [address] [place], [address] ALK P 60 U/L Normal 45-[address] [facility] Comment on above: Order Comment: 1 Performed By: #### L 504.2610, L100.0100, L500.4050 ####[facility] [address] [place], [address] ALT [Catalytic activity/Vol] 15 U/L Low 16-[address] [facility] Comment on above: Order Comment: 1 Performed By: #### L 504.2610, L100.0100, L500.4050 ####[facility] [address] [place], [address] AST [Catalytic activity/Vol] 11 U/L Low 15-[address] [facility] Comment on above: Order Comment: 1 Performed By: #### L 504.2610, L100.0100, L500.4050 ####[facility] [address] [place], [address] Bilirubin [Mass/Vol] 0.40 mg/dL Normal 0.20-1.00 [facility] Comment on above: Order Comment: 1 Result Comment: For patients on eltrombopag therapy, use of Dimension [place] TBIL is not recommended. Performed By: #### L 504.2610, L100.0100, L500.4050 ####[facility] [address] [place], [address] BUN/CRE 20.3 RATIO High 10-[address] [facility] Comment on above: Order Comment: 1 Performed By: #### L 504.2610, L100.0100, L500.4050 ####[facility] [address] [place], [address] CA,Total 9.3 mg/dL Normal 8.5-10.[address] [facility] Comment on above: Order Comment: 1 Performed By: #### L 504.2610, L100.0100, L500.4050 ####[facility] [address] [place], [address] Chloride [Moles/Vol] 104 mmol/L Normal 98-107 [facility] Comment on above: Order Comment: 1 Performed By: #### L 504.2610, L100.0100, L500.4050 ####[facility] [address] [place], [address] CO2 [Moles/Vol] 27.0 mmol/L Normal 21.0-32.[address] [facility] Comment on above: Order Comment: 1 Performed By: #### L 504.2610, L100.0100, L500.4050 ####[facility] [address] [place], [address] Creatinine [Mass/Vol] 2.17 mg/dL High 0.70-1.30 [facility] Comment on above: Order Comment: 1 Result Comment: The validity of the calculated GFR GFRAA in patients over70 years has not been determined. Clinical correlation isessential. Performed By: #### L 504.2610, L100.0100, L500.4050 ####[facility] [address] [place], [address] ECRCL 27.63 ml/min Normal [facility] Comment on above: Order Comment: 1 Performed By: #### L 504.2610, L100.0100, L500.4050 ####[facility] [address] [place], [address] EST GFR - AA 38 mL/min Low >[address] [facility] Comment on above: Order Comment: 1 Result Comment: Afri can Cameroonian GFR Calc Performed By: #### L 504.2610, L100.0100, L500.4050 ####[facility] [address] [place], [address] GAP 3 Low 5-[address] [facility] Comment on above: Order Comment: 1 Performed By: #### L 504.2610, L100.0100, L500.4050 ####[facility] [address] [place], [address] GFR/1.73 sq M.predicted among non-blacks MDRD (S/P/Bld) [Vol rate/Area] 31 mL/min/{1.73_m2} Low >60 [facility] Comment on above: Order Comment: 1 Result Comment: Non- GFR Calc Performed By: #### L 504.2610, L100.0100, L500.4050 ####[facility] [address] [place], [address] Globulin (S) [Mass/Vol] 4.9 g/dL High 2.2-4.2 [facility] Comment on above: Order Comment: 1 Performed By: #### L 504.2610, L100.0100, L500.4050 ####[facility] [address] [place], [address] Glucose [Mass/Vol] 130 mg/dL High 74-106 [facility] Comment on above: Order Comment: 1 Result Comment: Fast ing Glucose result greater than or equal to 126 mg/dLsuggests DIABETES MELLITUS per A.D.A. criteria. Performed By: #### L 504.2610, L100.0100, L500.4050 ####[facility] [address] [place], [address] Potassium [Moles/Vol] 4.8 mmol/L Normal 3.5-5.1 [facility] Comment on above: Order Comment: 1 Performed By: #### L 504.2610, L100.0100, L500.4050 ####[facility] [address] [place], [address] Sodium [Moles/Vol] 134 mmol/L Low 136-145 [facility] Comment on above: Order Comment: 1 Performed By: #### L 504.2610, L100.0100, L500.4050 ####[facility] [address] [place], [address] T PROT 8.0 g/dL Normal 6.4-8.[address] [facility] Comment on above: Order Comment: 1 Performed By: #### L 504.2610, L100.0100, L500.4050 ####[facility] [address] [place], [address] Urea nitrogen [Mass/Vol] 44 mg/dL High 7-[address] [facility] Comment on above: Order Comment: 1 Performed By: #### L 504.2610, L100.0100, L500.4050 ####[facility] [address] [place], [address] Estimated glomerular filtrat ion rate (GFR) AmericanOrdered By: Russ Zamora on 05-05-2024 Estimated GFR (MDRD) Amer 38 mL/min Low >[address] [facility] Comment on above: GFR Calc LDHon 05-05-2024 LDH 126 U/L Normal 87-[address] [facility] Comment on above: Order Comment: 1 Performed By: #### L 504.2610, L100.0100, L500.4050 ####[facility] [id number] [place], [address] Oncology Visit Reporton 04-20 Oncology Visit Report Normal [facility] CREATININE FINGERSTICKon Creatinine [Mass/Vol] 1.4 mg/dL High 0.70-1.30 [facility] Comment on above: Performed By: #### L 9100.0200 ####[facility] [id number] [place], [address] GFR/1.73 sq M.predicted among non-blacks MDRD (S/P/Bld) [Vol rate/Area] 50.0000 mL/min/{1.73_m2} Low >[address] [facility] Comment on above: Performed By: #### L 9100.0200 ####[facility] [id number] [place], [address] CT Chest AND Abd W/ Contrast on 04-28-2024 CT Chest AND Abd W/ Contrast Normal [facility] Miscellaneous procedureOrder ed By: Russ Zamora on 01-28-2024 Miscellaneous Test See comment [facility] Comment on above: Sent directly to [facility] per ordering physician. Bacteria identified Cx Nom ( Wound)Ordered By: Joaquim Suárez on 12-24-2023 Wound Culture Staphylococcus pseudintermediu [facility] Wound Culture Enterococcus faecalis [facility] Wound Culture Streptococcus pyogenes [facility] Gram stain for investigation of transfusion reactionOrdered By: Joaquim Suárez on 12-24-2023 Microscopic observation Gram stain Nom (Unsp spec) [facility] Absolute lymphocyte countOrd ered By: Russ Zamora on 11-06-2023 Lymphocytes Auto (Unsp spec) [#/Vol] 0.95 10*3/uL 0.83-4.[address] [facility] Addendum DocumentOrdered By: Russ Zamora on 11-06-2023 Serum Immunofixation Comments Comment . [facility] Comment on above: Protein electrophore sis scan will follow via computer,mail, or repairer general delivery. Albumin Elph [Mass/Vol]Order ed By: Russ Zamora on 11-06-2023 Albumin [Mass/Vol] 3.2 g/dL 2.9-4.4 [facility] Alpha 1 globulin Elph [Mass/ Vol]Ordered By: Russ Zamora on 11-06-2023 Aykog-0-Dnwbvahop (PILY) 0.4 g/dL 0.0-0.4 [facility] Dclbk-2-Wqiiwcuuz (PILY) 1.3 g/dL High 0.4-1.0 [facility] Automated lymphocyte count a s percentage of total leukocytesOrdered By: Russ Zamora on 11-06-2023 Lymphocytes/100 WBC Auto (Unsp spec) 10.5 % 19-[address] [facility] Basophil percentageOrdered B y: Russ Zamora on 11-06-2023 Basophils/100 WBC (Bld) 0.6 % 0-1 [facility] Bilirubin [Mass/Vol] 0.30 mg/dL 0.20-1.00 [facility] Comment on above: For patients on eltr ombopag therapy, use of Dimension [place] TBIL is not recommended. Chloride [Moles/Vol] 105 mmol/L 98-107 [facility] Eosinophils/100 WBC (Bld) 2.1 % 0-[address] [facility] Glucose [Mass/Vol] 106 mg/dL 74-106 [facility] Comment on above: Fasting Glucose resu lt from 100 to 125 mg/dL suggests IMPAIRED HOMEOSTASIS per A.D.A. criteria. Hemoglobin (Bld) [Mass/Vol] 11.5 g/dL 13.0-16.[address] [facility] LDH [Catalytic activity/Vol] 170 U/L 87-[address] [facility] Monocytes/100 WBC (Bld) 10.7 % 0-10 [facility] Neutrophils (Bld) [#/Vol] 6.8 10*3/uL 2.0-7.[address] [facility] Neutrophils/100 WBC (Bld) 75.2 % 47-[address] [facility] Potassium [Moles/Vol] 4.3 mmol/L 3.5-5.1 [facility] Protein [Mass/Vol] 8.2 g/dL 6.4-8.2 [facility] Sodium [Moles/Vol] 135 mmol/L 136-145 [facility] WBC (Bld) [#/Vol] 9.0 10*3/uL 4.4-11.0 [facility] Beta globulin Elph [Mass/Vol ]Ordered By: Russ Zamora on 11-06-2023 Beta-Globulins (PILY) 1.0 g/dL 0.7-1.3 [facility] C-reactive protein measureme nt by high sensitivity methodOrdered By: Russ Zamora on 11-06-2023 C-Reactive Protein Extended Range 22.10 mg/L High 0.0-3.[address] [facility] Comment on above: C-Reactive Protein ( CRP) provides useful information for thediagnosis, therapy and monitoring of inflammatory processesand associated diseases. For the evaluation of Relative Riskfor Cardiovascular Disease, a High Sensitivity CRP (HSCRP)should be ordered. C-reactive protein measurement by high sensitivity method 22.10 mg/L High 0.0-3.[address] [facility] Comment on above: C-Reactive Protein ( CRP) provides useful information for thediagnosis, therapy and monitoring of inflammatory processesand associated diseases. For the evaluation of Relative Riskfor Cardiovascular Disease, a High Sensitivity CRP (HSCRP)should be ordered. Determination of erythrocyte mean corpuscular volume (MCV)Ordered By: Russ Zamora on 11-06-2023 MCV (RBC) [Entitic vol] 88.0 fL 80-94 [facility] Erythrocyte distribution wid th ratioOrdered By: Russ Zamora on 11-06-2023 Erythrocyte distribution width (RBC) [Ratio] 15.5 % 11.6-14.[address] [facility] Erythrocyte distribution wid th standard deviationOrdered By: Russ Zamora on 11-06-2023 Erythrocyte distribution width (RBC) [Entitic vol] 49.5 fL 35.1-43.9 [facility] Erythrocyte sedimentation ra teOrdered By: Russ Zamora on 11-06-2023 ESR (Bld) [Velocity] 21 mm/h High 0-20 [facility] Gamma globulin Elph [Mass/Vo l]Ordered By: Russ Zamora on 11-06-2023 Gamma Globulins (PILY) 1.8 g/dL 0.4-1.8 [facility] Hematocrit Auto (Bld) [Volum e fraction]Ordered By: Russ Zamora on 11-06-2023 Hematocrit (Bld) [Volume fraction] 36.8 % 40-[address] [facility] Hemoglobin (Reticulocytes) [ Entitic mass]Ordered By: Russ Zamora on 11-06-2023 Reticulocyte Hemoglobin Equivalent 31.4 pg 30-[address] [facility] Hemoglobin in reticulocytes (mass per reticulocyte)Ordered By: Russ Zamora on 11-06-2023 Hemoglobin (Reticulocytes) [Entitic mass] 31.4 pg 30-[address] [facility] IgA [Mass/Vol]Ordered By: Flores Zamora on 11-06-2023 Immunoglobulin A 311 mg/dL 61-[address] [facility] IgG [Mass/Vol]Ordered By: Flores Zamora on 11-06-2023 Immunoglobulin G 1529 mg/dL 603-[address] [facility] Immature granulocytes/100 WB C Auto (Bld)Ordered By: Russ Zamora on 11-06-2023 Immature granulocytes/100 WBC (Bld) 0.900 % 0.0-0.[address] [facility] Comment on above: IG% - Immature Granu locytes (promyelocytes, myelocytes and metamyelocytes) > 1% indicates that a LEFT SHIFT is Present. Immature reticulocyte fracti onOrdered By: Russ Zamora on 11-06-2023 Immature Reticulocyte Fraction 22.10 % High 3.00-15.[address] [facility] Immunoglobulin M measurement Ordered By: Russ Zamora on 11-06-2023 Immunoglobulin M 157 mg/dL High 15-[address] [facility] Immunoglobulin light chains. kappa [Mass/Vol]Ordered By: Russ Zamora on 11-06-2023 Free Byram Light Chains, Quant 100.3 mg/L High 3.3-19.[address] [facility] Immunoglobulin light chains. kappa/Immunoglobulin light chains.lambda (S) [Mass ratio]Ordered By: Russ Zamora on 11-06-2023 Free Byram/Lambda Light Chain Ratio 1.63 0.26-1.[address] [facility] Comment on above: Performed at: [facility] [address] [id number] Director: Seb Bertrand PhD, Phone: [phone] Interpretation IEP [Interp]O rdered By: Russ Zamora on 11-06-2023 Immunofixation Screen Comment . [facility] Comment on above: No monoclonality det ected. Interpretation of serum or p lasma protein pattern by immunofixation (narrative resultOrdered By: Russ Zamora on 11-06-2023 Protein Fractions Immunofixation Jose Luis [Interp] Not Observed g/dL Not Observed [facility] Laboratory - Chemistry and C hemistry - challengeOrdered By: Russ Zamora on 11-06-2023 Albumin/Globulin [Mass ratio] 0.6 {ratio} 0.9-2.[address] [facility] ALP [Catalytic activity/Vol] 62 U/L 45-[address] [facility] ALT [Catalytic activity/Vol] 17 U/L 16-[address] [facility] CO2 [Moles/Vol] 24.0 mmol/L 21.0-32.[address] [facility] Urea nitrogen/Creatinine [Mass ratio] 21.9 mg/mg 10-[address] [facility] Laboratory - Hematology and Cell countsOrdered By: Russ Zamora on 11-06-2023 MCH (RBC) [Entitic mass] 27.5 pg 27.0-32.[address] [facility] MCHC (RBC) [Mass/Vol] 31.3 g/dL 32-36 [facility] Nucleated RBC/100 WBC (Bld) [Ratio] 0 % 0-[address] [facility] Platelet mean volume (Bld) [Entitic vol] 9.1 fL 6.2-12.[address] [facility] Platelets (Bld) [#/Vol] 270 10*3/uL 150-[address] [facility] Lambda free light chain kingsley urementOrdered By: Russ Zamora on 11-06-2023 Free Lambda Light Chains, Quant 61.5 mg/L High 5.7-26.[address] [facility] No Panel InformationOrdered By: Russ Zamora on 11-06-2023 Addendum Document Comment . [facility] Comment on above: Protein electrophore sis scan will follow via computer,mail, or repairer general delivery. Estimated Creatinine Clearance Calc 31.12 ml/min [facility] Estimated GFR (MDRD) Amer 43 mL/min >[address] [facility] Comment on above: GFR Calc Estimated GFR (MDRD) Non-Af Amer 35 mL/min >[address] [facility] Comment on above: Non- GFR Calc Protein Fractions Immunofixa tion Jose Luis [Interp]Ordered By: Russ Zamora on 11-06-2023 M-Arash (PILY) Not Observed g/dL Not Observed [facility] RBC Auto (Bld) [#/Vol]Ordere d By: Russ Zamora on 11-06-2023 RBC (Bld) [#/Vol] 4.18 10*6/uL 4.6-6.2 [facility] Reticulocytes Auto (Bld) [#/ Vol]Ordered By: Russ Zamora on 11-06-2023 Reticulocyte Count 2.12 % High 0.5-1.5 [facility] Reticulocytes/100 RBC (Bld) 2.12 % High 0.5-1.[address] [facility] Serum albumin/globulin ratio Ordered By: Russ Zamora on 11-06-2023 Albumin/Globulin (PILY) 0.8 0.7-1.7 [facility] Serum fkvzf-9-rtrmavgn measu rement by electrophoresisOrdered By: Russ Zamora on 11-06-2023 Alpha 1 globulin Elph [Mass/Vol] 0.4 g/dL 0.0-0.[address] [facility] Alpha 1 globulin Elph [Mass/Vol] 1.3 g/dL High 0.4-1.[address] [facility] Serum globulin measurement ( mass/volume)Ordered By: Russ Zamora on 11-06-2023 Globulin (S) [Mass/Vol] 4.4 g/dL 2.2-3.9 [facility] Serum immunoglobulin kappa l ight chains/immunoglobulin lambda light chains mass ratioOrdered By: Russ Zamora on 11-06-2023 Immunoglobulin light chains.kappa/Immunoglobul in light chains.lambda (S) [Mass ratio] 1.63 0.26-1.[address] [facility] Comment on above: Performed at: [place] [id number] Director: Seb Bertrand PhD, Phone: [phone] Serum or plasma IgA measurem ent (mass/volume)Ordered By: Russ Zamora on 11-06-2023 IgA [Mass/Vol] 311 mg/dL 61-[address] [facility] Serum or plasma IgG measurem ent (mass/volume)Ordered By: Russ Zamora on 11-06-2023 IgG [Mass/Vol] 1529 mg/dL 603-[address] [facility] Serum or plasma beta globuli n measurement by electrophoresis (mass/volume)Ordered By: Russ Zamora on 11-06-2023 Beta globulin Elph [Mass/Vol] 1.0 g/dL 0.7-1.[address] [facility] Serum or plasma calcium kingsley urement (mass/volume)Ordered By: Russ Zamora on 11-06-2023 Calcium [Mass/Vol] 9.0 mg/dL 8.5-10.1 [facility] Serum or plasma creatinine m easurement (mass/volume)Ordered By: Russ Zamora on 11-06-2023 Creatinine [Mass/Vol] 1.96 mg/dL 0.70-1.30 [facility] Comment on above: The validity of the calculated GFR & GFRAA in patients over 70 years has not been determined. Clinical correlation is essential. Serum or plasma gamma globul in measurement by electrophoresis (mass/volume)Ordered By: Russ Zamora on 11-06-2023 Gamma globulin Elph [Mass/Vol] 1.8 g/dL 0.4-1.[address] [facility] Serum or plasma immunoelectr ophoresis interpretation (nominal result)Ordered By: Russ Zamora on 11-06-2023 Interpretation IEP [Interp] Comment . [facility] Comment on above: No monoclonality det ected. Serum or plasma immunoglobul in kappa light chains measurement (mass/volume)Ordered By: Russ Walls on 11-06-2023 Immunoglobulin light chains.kappa [Mass/Vol] 100.3 mg/L High 3.3-19.[address] [facility] Serum or plasma urea nitroge n measurement (mass/volume)Ordered By: Russ Walls on 11-06-2023 Urea nitrogen [Mass/Vol] 43 mg/dL 7-[address] [facility] Serum or plasma uric acid me asurement (mass/volume)Ordered By: [facility] on 11-06-2023 Urate [Mass/Vol] 6.6 mg/dL 3.5-7.[address] [facility] Comment on above: The drugs N-Acetylcy steine and Metamizole may falsely depress this assay. Thin prep Papanicolaou smear with manual screeningOrdered By: Russ Zamora on 11-06-2023 Thin prep Papanicolaou smear with manual screening 3.2 g/dL 3.2-5.[address] [facility] Thin prep Papanicolaou smear with manual screening 15 U/L 15-[address] [facility] Thin prep Papanicolaou smear with manual screening 6 5-[address] [facility] Thin prep Papanicolaou smear with manual screening 0.8 0.7-1.[address] [facility] Total protein bloodOrdered B y: Russ Zamora on 11-06-2023 Protein [Mass/Vol] 7.6 g/dL 6.0-8.5 [facility] Basophil percentageOrdered B y: Russ Zamora on 10-12-2023 Creatinine [Mass/Vol] 1.5 mg/dL 0.70-1.30 [facility] Laboratory - Chemistry and C hemistry - challengeOrdered By: Russ Zamora on 10-12-2023 GFR/1.73 sq M.predicted among non-blacks MDRD (S/P/Bld) [Vol rate/Area] 49.0000 mL/min/{1.73_m2} >[address] [facility] Absolute lymphocyte countOrd ered By: Leslie Arriaga on 07-26-2023 Lymphocytes Auto (Unsp spec) [#/Vol] 1.22 10*3/uL 0.83-4.[address] [facility] Assessment of wrist artery p atency prior to arterial punctureOrdered By: Lorie Mart on 07-26-2023 Arterial patency Wrist artery --pre arterial puncture Positive [facility] Base excessOrdered By: Obed Mart on 07-26-2023 Base excess Calc (BldV) [Moles/Vol] -1 mmol/L -2-[address] [facility] Basophil percentageOrdered B y: Leslie Arriaga on 07-26-2023 Basophils/100 WBC (Bld) 0.7 % 0-1 [facility] Chloride [Moles/Vol] 105 mmol/L 98-107 [facility] Eosinophils/100 WBC (Bld) 1.7 % 0-[address] [facility] Glucose [Mass/Vol] 99 mg/dL 74-106 [facility] Neutrophils (Bld) [#/Vol] 9.0 10*3/uL 2.0-7.[address] [facility] Neutrophils/100 WBC (Bld) 76.3 % 47-[address] [facility] Potassium [Moles/Vol] 4.8 mmol/L 3.5-5.1 [facility] Sodium [Moles/Vol] 135 mmol/L 136-145 [facility] WBC (Bld) [#/Vol] 11.7 10*3/uL 4.4-11.0 [facility] Basophil percentageOrdered B y: Lorie Mart on 07-26-2023 Basophil percentage 24.8 mmol/L 22-26 [facility] Basophils/100 WBC (Bld) 95 % 95-99 [facility] Blood erythrocytes count (nu mber/volume)Ordered By: Leslie Arriaga on 07-26-2023 RBC (Bld) [#/Vol] 4.50 10*6/uL 4.6-6.2 [facility] Blood hemoglobin measurement (mass/volume)Ordered By: Leslie Arriaga on 07-26-2023 Hemoglobin (Bld) [Mass/Vol] 12.5 g/dL 13.0-16.[address] [facility] Blood lymphocytes/100 leukoc ytesOrdered By: Leslie Arriaga on 07-26-2023 Lymphocytes/100 WBC (Bld) 10.4 % 19-[address] [facility] Blood monocytes/100 leukocyt esOrdered By: Leslie Arriaga on 07-26-2023 Monocytes/100 WBC (Bld) 10.2 % 0-10 [facility] Blood platelet mean volumeOr dered By: Leslie Arriaga on 07-26-2023 Platelet mean volume (Bld) [Entitic vol] 10.6 fL 6.2-12.[address] [facility] CO2 (BldA) [Partial pressure ]Ordered By: Lorie Mart on 07-26-2023 CO2 (Bld) [Partial pressure] 42.6 mm[Hg] 35-[address] [facility] Determination of erythrocyte mean corpuscular volume (MCV)Ordered By: Leslie Arriaga on 07-26-2023 MCV (RBC) [Entitic vol] 87.6 fL 80-94 [facility] Hematocrit Auto (Bld) [Volum e fraction]Ordered By: Leslie Arriaga on 07-26-2023 Hematocrit (Bld) [Volume fraction] 39.4 % 40-[address] [facility] Laboratory - Chemistry and C hemistry - challengeOrdered By: Leslie Arriaga on 07-26-2023 CO2 [Moles/Vol] 28.0 mmol/L 21.0-32.[address] [facility] Natriuretic peptide B (Bld) [Mass/Vol] 233.5 pg/mL 0-[address] [facility] Urea nitrogen/Creatinine [Mass ratio] 25.4 mg/mg 10-[address] [facility] Laboratory - Hematology and Cell countsOrdered By: Leslie Arriaga on 07-26-2023 Erythrocyte distribution width (RBC) [Entitic vol] 52.0 fL 35.1-43.9 [facility] Erythrocyte distribution width (RBC) [Ratio] 16.3 % 11.6-14.[address] [facility] Immature granulocytes/100 WBC (Bld) 0.700 % 0.0-0.[address] [facility] Comment on above: IG% - Immature Granu locytes (promyelocytes, myelocytes and metamyelocytes) > 1% indicates that a LEFT SHIFT is Present. MCH (RBC) [Entitic mass] 27.8 pg 27.0-32.[address] [facility] Nucleated RBC/100 WBC (Bld) [Ratio] 0 % 0-[address] [facility] MCHC Auto (RBC) [Mass/Vol]Or dered By: Leslie Arriaga on 07-26-2023 MCHC (RBC) [Mass/Vol] 31.7 g/dL 32-36 [facility] No Panel InformationOrdered By: Leslie Arriaga on 07-26-2023 Estimated GFR (MDRD) Amer 40 mL/min >[address] [facility] Comment on above: GFR Calc Estimated GFR (MDRD) Non-Af Amer 33 mL/min >[address] [facility] Comment on above: Non- GFR Calc No Panel InformationOrdered By: Lorie Mart on 07-26-2023 Blood Gas Sample Site R Radial [facility] Blood Gas Specimen Type ART [facility] Blood Gas Total CO2 26 mmol/L [facility] Blood Gas Vent Mode Not entered [facility] Oxygen Delivery Device [id number] [facility] Oxygen (BldA) [Partial press ure]Ordered By: Lorie Mart on 07-26-2023 Oxygen (Bld) [Partial pressure] 77 mmHG 75-[address] [facility] Platelets bldOrdered By: Markus Arriaga on 07-26-2023 Platelets (Bld) [#/Vol] 264 10*3/uL 150-[address] [facility] Serum or plasma calcium kingsley urement (mass/volume)Ordered By: Leslie Arriaga on 07-26-2023 Calcium [Mass/Vol] 9.3 mg/dL 8.5-10.1 [facility] Serum or plasma creatinine m easurement (mass/volume)Ordered By: Leslie Arriaga on 07-26-2023 Creatinine [Mass/Vol] 2.09 mg/dL 0.70-1.30 [facility] Comment on above: The validity of the calculated GFR & GFRAA in patients over 70 years has not been determined. Clinical correlation is essential. Serum or plasma urea nitroge n measurement (mass/volume)Ordered By: Leslie Arriaga on 07-26-2023 Urea nitrogen [Mass/Vol] 53 mg/dL 7-[address] [facility] Thin prep Papanicolaou smear with manual screeningOrdered By: Leslie Arriaga on 07-26-2023 Thin prep Papanicolaou smear with manual screening 2 5-[address] [facility] pH measurementOrdered By: Pj Mart on 07-26-2023 pH (Unsp spec) 7.37 [pH] 7.35-7.[address] [facility] Anaerobic cultureOrdered By: Joaquim Suárez on 06-22-2023 Bacteria identified Anaer cx Nom (Unsp spec) No anaerobic bacteria isolated. [facility] Bacteria identified Cx Nom ( Wound)Ordered By: Joaquim Suárez on 06-22-2023 Wound Culture Staphylococcus epidermidis [facility] Wound Culture Corynebacterium jeikeium [facility] Fungus cultureOrdered By: Flores Suárez on 06-22-2023 Fungus identified Cx Nom (Unsp spec) [facility] Gram stain for investigation of transfusion reactionOrdered By: Joaquim Suárez on 06-22-2023 Microscopic observation Gram stain Nom (Unsp spec) [facility] Glucose Glucometer (BldC) [M ass/Vol]Ordered By: Joaqium Suárez on 06-08-2023 Glucose [Mass/Vol] 72 mg/dL 74-106 [facility] Comment on above: MANAGEMENT OF PATIEN T CARE PER NURSING PROTOCOL Absolute lymphocyte countOrd ered By: Russ Zamora on 04-17-2023 Lymphocytes Auto (Unsp spec) [#/Vol] 1.02 10*3/uL 0.83-4.[address] [facility] Basophil percentageOrdered B y: Russ Zamora on 04-17-2023 Basophils/100 WBC (Bld) 0.5 % 0-1 [facility] Bilirubin [Mass/Vol] 0.30 mg/dL 0.20-1.00 [facility] Comment on above: For patients on eltr ombopag therapy, use of Dimension [place] TBIL is not recommended. Chloride [Moles/Vol] 102 mmol/L 98-107 [facility] Eosinophils/100 WBC (Bld) 2.6 % 0-[address] [facility] Glucose [Mass/Vol] 209 mg/dL 74-106 [facility] Comment on above: Glucose result great er than or equal to 200 mg/dLsuggests DIABETES MELLITUS per A.D.A. criteria. LDH [Catalytic activity/Vol] 152 U/L 87-[address] [facility] Neutrophils (Bld) [#/Vol] 6.0 10*3/uL 2.0-7.[address] [facility] Neutrophils/100 WBC (Bld) 74.2 % 47-[address] [facility] Potassium [Moles/Vol] 4.3 mmol/L 3.5-5.1 [facility] Protein [Mass/Vol] 7.8 g/dL 6.4-8.2 [facility] Sodium [Moles/Vol] 136 mmol/L 136-145 [facility] WBC (Bld) [#/Vol] 8.1 10*3/uL 4.4-11.0 [facility] Blood erythrocytes count (nu mber/volume)Ordered By: Russ Zamora on 04-17-2023 RBC (Bld) [#/Vol] 4.45 10*6/uL 4.6-6.2 [facility] Blood hemoglobin measurement (mass/volume)Ordered By: Russ Zamora on 04-17-2023 Hemoglobin (Bld) [Mass/Vol] 12.3 g/dL 13.0-16.[address] [facility] Blood lymphocytes/100 leukoc ytesOrdered By: Russ Zamora on 04-17-2023 Lymphocytes/100 WBC (Bld) 12.6 % 19-[address] [facility] Blood monocytes/100 leukocyt esOrdered By: Russ Zamora on 04-17-2023 Monocytes/100 WBC (Bld) 9.4 % 0-10 [facility] Blood platelet mean volumeOr dered By: Russ Zamora on 04-17-2023 Platelet mean volume (Bld) [Entitic vol] 9.5 fL 6.2-12.[address] [facility] Determination of erythrocyte mean corpuscular volume (MCV)Ordered By: Russ Zamora on 04-17-2023 MCV (RBC) [Entitic vol] 89.9 fL 80-94 [facility] Hematocrit Auto (Bld) [Volum e fraction]Ordered By: Russ Zamora on 04-17-2023 Hematocrit (Bld) [Volume fraction] 40.0 % 40-[address] [facility] Laboratory - Chemistry and C hemistry - challengeOrdered By: Russ Zamora on 04-17-2023 ALP [Catalytic activity/Vol] 58 U/L 45-[address] [facility] ALT [Catalytic activity/Vol] 21 U/L 16-[address] [facility] CO2 [Moles/Vol] 27.0 mmol/L 21.0-32.[address] [facility] Globulin (S) [Mass/Vol] 4.5 g/dL 2.2-4.2 [facility] Urea nitrogen/Creatinine [Mass ratio] 20.3 mg/mg 10-[address] [facility] Laboratory - Hematology and Cell countsOrdered By: Russ Zamora on 04-17-2023 Erythrocyte distribution width (RBC) [Entitic vol] 54.4 fL 35.1-43.9 [facility] Erythrocyte distribution width (RBC) [Ratio] 16.5 % 11.6-14.[address] [facility] Immature granulocytes/100 WBC (Bld) 0.700 % 0.0-0.[address] [facility] Comment on above: IG% - Immature Granu locytes (promyelocytes, myelocytes and metamyelocytes) > 1% indicates that a LEFT SHIFT is Present. MCH (RBC) [Entitic mass] 27.6 pg 27.0-32.[address] [facility] Nucleated RBC/100 WBC (Bld) [Ratio] 0 % 0-[address] [facility] MCHC Auto (RBC) [Mass/Vol]Or dered By: Russ Zamora on 04-17-2023 MCHC (RBC) [Mass/Vol] 30.8 g/dL 32-36 [facility] No Panel InformationOrdered By: Russ Zamora on 04-17-2023 Estimated Creatinine Clearance Calc 29.38 ml/min [facility] Estimated GFR (MDRD) Amer 45 mL/min >[address] [facility] Comment on above: GFR Calc Estimated GFR (MDRD) Non-Af Amer 37 mL/min >[address] [facility] Comment on above: Non- GFR Calc Platelets bldOrdered By: Frantz Zamora on 04-17-2023 Platelets (Bld) [#/Vol] 214 10*3/uL 150-[address] [facility] Serum or plasma albumin [place] urement (mass/volume)Ordered By: Russ Zamora on 04-17-2023 Albumin [Mass/Vol] 3.3 g/dL 3.2-5.0 [facility] Serum or plasma albumin/glob ulin mass ratioOrdered By: Russ Zamora on 04-17-2023 Albumin/Globulin [Mass ratio] 0.7 {ratio} 0.9-2.[address] [facility] Serum or plasma calcium [place] urement (mass/volume)Ordered By: Russ Zamora on 04-17-2023 Calcium [Mass/Vol] 9.1 mg/dL 8.5-10.1 [facility] Serum or plasma creatinine m easurement (mass/volume)Ordered By: Russ Zamora on 04-17-2023 Creatinine [Mass/Vol] 1.87 mg/dL 0.70-1.30 [facility] Comment on above: The validity of the calculated GFR & GFRAA in patients over 70 years has not been determined. Clinical correlation is essential. Serum or plasma urea nitroge n measurement (mass/volume)Ordered By: Russ Zamora on 04-17-2023 Urea nitrogen [Mass/Vol] 38 mg/dL 7-[address] [facility] Thin prep Papanicolaou smear with manual screeningOrdered By: Russ Zamora on 04-17-2023 Thin prep Papanicolaou smear with manual screening 16 U/L 15-[address] [facility] Thin prep Papanicolaou smear with manual screening 7 5-[address] [facility] Basophil percentageOrdered B y: Russ Zamora on 04-10-2023 Creatinine [Mass/Vol] 1.1 mg/dL 0.70-1.30 [facility] No Panel InformationOrdered By: Russ Zamora on 04-10-2023 Bedside Estimated GFR (eGFR) > 60.0000 mL/min >[address] [facility] Anaerobic cultureOrdered By: Bonny Glynn on 01-13-2023 Bacteria identified Anaer cx Nom (Unsp spec) No anaerobic bacteria isolated. [facility] Bacteria identified Cx Nom ( Wound)Ordered By: Bonny Glynn on 01-11-2023 Wound Culture Staphylococcus pseudintermediu [facility] Gram stain for investigation of transfusion reactionOrdered By: Bonny Glynn on 01-09-2023 Microscopic observation Gram stain Nom (Unsp spec) [facility] Anaerobic cultureOrdered By: Bonny Glynn on 01-08-2023 Bacteria identified Anaer cx Nom (Unsp spec) No anaerobic bacteria isolated. [facility] Bacteria identified Cx Nom ( Wound)Ordered By: Bonny Glynn on 01-08-2023 Wound Culture Staphylococcus pseudintermediu [facility] Gram stain for investigation of transfusion reactionOrdered By: Bonny Glynn on 01-08-2023 Microscopic observation Gram stain Nom (Unsp spec) [facility] Laboratory - Microbiology an d Antimicrobial susceptibilityOrdered By: Dr. Ochoa on 01-05-2023 Bacteria identified Cx Nom (Bld) No growth in [address] [facility] Culture, urineOrdered By: Dr Marianna Ochoa on 01-02-2023 Bacteria identified Cx Nom (U) Culture exhibits no growth. [facility] Influenza virus A and B and SARS-CoV-2 (COVID-19) Ag panel - Upper respiratory specimOrdered By: Dr. Ochoa on 12-31-2022 SARS-CoV-2 & FLU Antigen (Rapid) Influenzae A [facility] Absolute lymphocyte countOrd ered By: Dr. Ochoa on 12-30-2022 Lymphocytes Auto (Unsp spec) [#/Vol] 0.68 10*3/uL 0.83-4.[address] [facility] Basophil percentageOrdered B y: Dr. Ochoa on 12-30-2022 Basophil percentage 0-5 SEEN /hpf 0-5 [facility] Basophils/100 WBC (Bld) 0.5 % 0-1 [facility] Bilirubin [Mass/Vol] 0.50 mg/dL 0.20-1.00 [facility] Comment on above: For patients on eltr ombopag therapy, use of Dimension [place] TBIL is not recommended. Chloride [Moles/Vol] 102 mmol/L 98-107 [facility] Eosinophils/100 WBC (Bld) 0.2 % 0-[address] [facility] Glucose [Mass/Vol] 119 mg/dL 74-106 [facility] Comment on above: Fasting Glucose resu lt from 100 to 125 mg/dL suggests IMPAIRED HOMEOSTASIS per A.D.A. criteria. Lactate [Moles/Vol] 1.4 mmol/L 0.4-2.0 [facility] Neutrophils (Bld) [#/Vol] 8.8 10*3/uL 2.0-7.[address] [facility] Neutrophils/100 WBC (Bld) 83.3 % 47-[address] [facility] Potassium [Moles/Vol] 5.2 mmol/L 3.5-5.1 [facility] Protein [Mass/Vol] 8.2 g/dL 6.4-8.2 [facility] Sodium [Moles/Vol] 134 mmol/L 136-145 [facility] WBC (Bld) [#/Vol] 10.6 10*3/uL 4.4-11.0 [facility] Bilirubin Test strip Ql (U)O rdered By: Dr. Ochoa on 12-30-2022 Bilirubin Ql (U) Negative Negative [facility] Blood erythrocytes count (nu mber/volume)Ordered By: Dr. Ochoa on 12-30-2022 RBC (Bld) [#/Vol] 4.36 10*6/uL 4.6-6.2 [facility] Blood hemoglobin measurement (mass/volume)Ordered By: Dr. Ochoa on 12-30-2022 Hemoglobin (Bld) [Mass/Vol] 12.1 g/dL 13.0-16.[address] [facility] Blood lymphocytes/100 leukoc ytesOrdered By: Dr. Ochoa on 12-30-2022 Lymphocytes/100 WBC (Bld) 6.4 % 19-[address] [facility] Blood monocytes/100 leukocyt esOrdered By: Dr. Ochoa on 12-30-2022 Monocytes/100 WBC (Bld) 9.1 % 0-10 [facility] Blood platelet mean volumeOr dered By: Dr. Ochoa on 12-30-2022 Platelet mean volume (Bld) [Entitic vol] 10.2 fL 6.2-12.[address] [facility] Culture, urineOrdered By: Chino Ochoa on 12-30-2022 Bacteria identified Cx Nom (U) Culture exhibits no growth. [facility] Determination of erythrocyte mean corpuscular volume (MCV)Ordered By: Dr. Ochoa on 12-30-2022 MCV (RBC) [Entitic vol] 87.2 fL 80-94 [facility] Hematocrit Auto (Bld) [Volum e fraction]Ordered By: Dr. Ochoa on 12-30-2022 Hematocrit (Bld) [Volume fraction] 38.0 % 40-[address] [facility] INR in Blood by Coagulation assayOrdered By: Dr. Ochoa on 12-30-2022 INR Coag (Bld) [Relative time] 1.3 {INR} [facility] Influenza virus A and B and SARS-CoV-2 (COVID-19) Ag panel - Upper respiratory specimOrdered By: Chris Ochoa on 12-30-2022 SARS-CoV-2 & FLU Antigen (Rapid) Influenzae A [facility] Ketones Test strip Ql (U)Ord ered By: Dr. Ochoa on 12-30-2022 Ketones Ql (U) Negative Negative [facility] Laboratory - Chemistry and C hemistry - challengeOrdered By: Dr. Ochoa on 12-30-2022 ALP [Catalytic activity/Vol] 53 U/L 45-[address] [facility] ALT [Catalytic activity/Vol] 22 U/L 16-[address] [facility] CO2 [Moles/Vol] 25.0 mmol/L 21.0-32.[address] [facility] Globulin (S) [Mass/Vol] 4.7 g/dL 2.2-4.2 [facility] Urea nitrogen/Creatinine [Mass ratio] 22.0 mg/mg 10-[address] [facility] Laboratory - CoagulationOrde red By: Dr. Ochoa on 12-30-2022 aPTT Coag (Bld) [Time] 38.9 s 24.1-36.2 [facility] PT Coag (PPP) [Time] 15.8 s 11.7-14.9 [facility] Laboratory - Hematology and Cell countsOrdered By: Dr. Ochoa on 12-30-2022 Erythrocyte distribution width (RBC) [Entitic vol] 50.5 fL 35.1-43.9 [facility] Erythrocyte distribution width (RBC) [Ratio] 15.9 % 11.6-14.[address] [facility] Immature granulocytes/100 WBC (Bld) 0.500 % 0.0-0.[address] [facility] Comment on above: IG% - Immature Granu locytes (promyelocytes, myelocytes and metamyelocytes) > 1% indicates that a LEFT SHIFT is Present. MCH (RBC) [Entitic mass] 27.8 pg 27.0-32.[address] [facility] Nucleated RBC/100 WBC (Bld) [Ratio] 0 % 0-[address] [facility] Laboratory - Microbiology an d Antimicrobial susceptibilityOrdered By: Chris Ochoa on 12-30-2022 Bacteria identified Cx Nom (Bld) No growth in [address] [facility] MCHC Auto (RBC) [Mass/Vol]Or dered By: Dr. Ochoa on 12-30-2022 MCHC (RBC) [Mass/Vol] 31.8 g/dL 32-36 [facility] Mucus LM Ql (Urine sed)Order ed By: Dr. Ochoa on 12-30-2022 Mucus Ql (Urine sed) 0 SEEN /hpf [facility] Nitrite Test strip Ql (U)Ord ered By: Dr. Ochoa on 12-30-2022 Nitrite Ql (U) Negative Negative [facility] No Panel InformationOrdered By: Dr. Ochoa on 12-30-2022 Estimated Creatinine Clearance Calc 27.91 ml/min [facility] Estimated GFR (MDRD) Amer 42 mL/min >[address] [facility] Comment on above: GFR Calc Estimated GFR (MDRD) Non-Af Amer 35 mL/min >[address] [facility] Comment on above: Non- GFR Calc Platelets bldOrdered By: Dr. Ochoa on 12-30-2022 Platelets (Bld) [#/Vol] 210 10*3/uL 150-[address] [facility] Protein Test strip Ql (U)Ord ered By: Dr. Ochoa on 12-30-2022 Protein Ql (U) 100 mg/dl Negative [facility] Serum or plasma albumin [place] urement (mass/volume)Ordered By: Dr. Ochoa on 12-30-2022 Albumin [Mass/Vol] 3.5 g/dL 3.2-5.0 [facility] Serum or plasma albumin/glob ulin mass ratioOrdered By: Dr. Ochoa on 12-30-2022 Albumin/Globulin [Mass ratio] 0.7 {ratio} 0.9-2.[address] [facility] Serum or plasma calcium [place] urement (mass/volume)Ordered By: Dr. Ochoa on 12-30-2022 Calcium [Mass/Vol] 9.2 mg/dL 8.5-10.1 [facility] Serum or plasma creatinine m easurement (mass/volume)Ordered By: Dr. Ochoa on 12-30-2022 Creatinine [Mass/Vol] 2.00 mg/dL 0.70-1.30 [facility] Comment on above: The validity of the calculated GFR & GFRAA in patients over 70 years has not been determined. Clinical correlation is essential. Serum or plasma urea nitroge n measurement (mass/volume)Ordered By: Dr. Ochoa on 12-30-2022 Urea nitrogen [Mass/Vol] 44 mg/dL 7-[address] [facility] Squamous epithelial cells de tection in urine sediment by light microscopyOrdered By: Dr. Ochoa on 12-30-2022 Epithelial cells.squamous LM Ql (Urine sed) 0 SEEN /hpf 0-[address] [facility] Thin prep Papanicolaou smear with manual screeningOrdered By: Dr. Ochoa on 12-30-2022 Thin prep Papanicolaou smear with manual screening 22 U/L 15-[address] [facility] Thin prep Papanicolaou smear with manual screening 7 5-[address] [facility] Urine blood detectionOrdered By: Dr. Ochoa on 12-30-2022 RBC Ql (U) 25 /ul Negative [facility] RBC Ql (U) 0 SEEN /hpf 0-[address] [facility] Urine clarityOrdered By: Dr. Ochoa on 12-30-2022 Clarity (U) Clear Clear [facility] Urine color determinationOrd ered By: Dr. Ochoa on 12-30-2022 Color (U) Yellow Yellow [facility] Urine glucose detectionOrder ed By: Dr. Ochoa on 12-30-2022 Glucose Ql (U) Normal mg/dl Normal [facility] Urine leukocyte esterase det ection by dipstickOrdered By: Dr. Ochoa on 12-30-2022 Leukocyte esterase Test strip Ql (U) 25 /ul Negative [facility] Urine pHOrdered By: Dr. Amy chowdhury on 12-30-2022 pH (U) 7.0 [pH] 5.0 - 8.[address] [facility] Urine sediment bacteria coun t by microscopy (number/high power field)Ordered By: Dr. Ochoa on 12-30-2022 Bacteria LM.HPF (Urine sed) [#/Area] 0 /[HPF] None Seen [facility] Urine specific gravity measu rementOrdered By: Dr. Ochoa on 12-30-2022 Specific gravity (U) [Rel density] 1.005 1.002-1.[address] [facility] Urobilinogen Auto test strip Ql (U)Ordered By: Dr. Ochoa on 12-30-2022 Urobilinogen Ql (U) Normal mg/dl Normal [facility] Absolute lymphocyte countOrd ered By: Dr. Zamora on 10-16-2022 Lymphocytes Auto (Unsp spec) [#/Vol] 1.25 10*3/uL 0.83-4.[address] [facility] Basophil percentageOrdered B y: Dr. Zamora on 10-16-2022 Basophils/100 WBC (Bld) 0.6 % 0-1 [facility] Bilirubin [Mass/Vol] 0.30 mg/dL 0.20-1.00 [facility] Comment on above: For patients on eltr ombopag therapy, use of Dimension [place] TBIL is not recommended. Chloride [Moles/Vol] 106 mmol/L 98-107 [facility] Eosinophils/100 WBC (Bld) 1.4 % 0-[address] [facility] Glucose [Mass/Vol] 225 mg/dL 74-106 [facility] Comment on above: Glucose result great er than or equal to 200 mg/dLsuggests DIABETES MELLITUS per A.D.A. criteria. LDH [Catalytic activity/Vol] 135 U/L 87-[address] [facility] Neutrophils (Bld) [#/Vol] 5.1 10*3/uL 2.0-7.[address] [facility] Neutrophils/100 WBC (Bld) 70.2 % 47-[address] [facility] Potassium [Moles/Vol] 4.5 mmol/L 3.5-5.1 [facility] Protein [Mass/Vol] 7.8 g/dL 6.4-8.2 [facility] Sodium [Moles/Vol] 139 mmol/L 136-145 [facility] WBC (Bld) [#/Vol] 7.3 10*3/uL 4.4-11.0 [facility] Blood erythrocytes count (nu mber/volume)Ordered By: Dr. Zamora on 10-16-2022 RBC (Bld) [#/Vol] 3.94 10*6/uL 4.6-6.2 [facility] Blood hemoglobin measurement (mass/volume)Ordered By: Dr. Zamora on 10-16-2022 Hemoglobin (Bld) [Mass/Vol] 11.5 g/dL 13.0-16.[address] [facility] Blood lymphocytes/100 leukoc ytesOrdered By: Dr. Zamora on 10-16-2022 Lymphocytes/100 WBC (Bld) 17.2 % 19-[address] [facility] Blood monocytes/100 leukocyt esOrdered By: Dr. Zamora on 10-16-2022 Monocytes/100 WBC (Bld) 9.8 % 0-10 [facility] Blood platelet mean volumeOr dered By: Dr. Zamora on 10-16-2022 Platelet mean volume (Bld) [Entitic vol] 9.9 fL 6.2-12.[address] [facility] Determination of erythrocyte mean corpuscular volume (MCV)Ordered By: Dr. Zamora on 10-16-2022 MCV (RBC) [Entitic vol] 91.1 fL 80-94 [facility] Hematocrit Auto (Bld) [Volum e fraction]Ordered By: Dr. Zamora on 10-16-2022 Hematocrit (Bld) [Volume fraction] 35.9 % 40-[address] [facility] Laboratory - Chemistry and C hemistry - challengeOrdered By: Dr. Zamora on 10-16-2022 ALP [Catalytic activity/Vol] 52 U/L 45-[address] [facility] ALT [Catalytic activity/Vol] 19 U/L 16-[address] [facility] CO2 [Moles/Vol] 26.0 mmol/L 21.0-32.[address] [facility] Globulin (S) [Mass/Vol] 4.5 g/dL 2.2-4.2 [facility] Urea nitrogen/Creatinine [Mass ratio] 17.5 mg/mg 10-[address] [facility] Laboratory - Hematology and Cell countsOrdered By: Dr. Zamora on 10-16-2022 Erythrocyte distribution width (RBC) [Entitic vol] 50.4 fL 35.1-43.9 [facility] Erythrocyte distribution width (RBC) [Ratio] 15.2 % 11.6-14.[address] [facility] Immature granulocytes/100 WBC (Bld) 0.800 % 0.0-0.[address] [facility] Comment on above: IG% - Immature Granu locytes (promyelocytes, myelocytes and metamyelocytes) > 1% indicates that a LEFT SHIFT is Present. MCH (RBC) [Entitic mass] 29.2 pg 27.0-32.[address] [facility] Nucleated RBC/100 WBC (Bld) [Ratio] 0 % 0-[address] [facility] MCHC Auto (RBC) [Mass/Vol]Or dered By: Dr. Zamora on 10-16-2022 MCHC (RBC) [Mass/Vol] 32.0 g/dL 32-36 [facility] No Panel InformationOrdered By: Dr. Zmaora on 10-16-2022 Estimated GFR (MDRD) Amer 45 mL/min >[address] [facility] Comment on above: GFR Calc Estimated GFR (MDRD) Non-Af Amer 37 mL/min >[address] [facility] Comment on above: Non- GFR Calc Platelets bldOrdered By: Dr. Zamora on 10-16-2022 Platelets (Bld) [#/Vol] 193 10*3/uL 150-[address] [facility] Serum or plasma albumin [place] urement (mass/volume)Ordered By: Dr. Zamora on 10-16-2022 Albumin [Mass/Vol] 3.3 g/dL 3.2-5.0 [facility] Serum or plasma albumin/glob ulin mass ratioOrdered By: Dr. Zamora on 10-16-2022 Albumin/Globulin [Mass ratio] 0.7 {ratio} 0.9-2.[address] [facility] Serum or plasma calcium [place] urement (mass/volume)Ordered By: Dr. Zamora on 10-16-2022 Calcium [Mass/Vol] 9.3 mg/dL 8.5-10.1 [facility] Serum or plasma creatinine m easurement (mass/volume)Ordered By: Dr. Zamora on 10-16-2022 Creatinine [Mass/Vol] 1.89 mg/dL 0.70-1.30 [facility] Comment on above: The validity of the calculated GFR & GFRAA in patients over 70 years has not been determined. Clinical correlation is essential. Serum or plasma urea nitroge n measurement (mass/volume)Ordered By: Dr. Zamora on 10-16-2022 Urea nitrogen [Mass/Vol] 33 mg/dL 7-[address] [facility] Thin prep Papanicolaou smear with manual screeningOrdered By: Dr. Zamora on 10-16-2022 Thin prep Papanicolaou smear with manual screening 17 U/L 15-[address] [facility] Thin prep Papanicolaou smear with manual screening 7 5-[address] [facility] Basophil percentageOrdered B y: Dr. Zamora on 10-09-2022 Creatinine [Mass/Vol] 1.4 mg/dL 0.70-1.30 [facility] Laboratory - Chemistry and C hemistry - challengeOrdered By: Dr. Zamora on 10-09-2022 GFR/1.73 sq M.predicted among non-blacks MDRD (S/P/Bld) [Vol rate/Area] 52.0000 mL/min/{1.73_m2} >[address] [facility] Culture, urineOrdered By: St gillian Glynn on 10-04-2022 Bacteria identified Cx Nom (U) Staphylococcus epidermidis [facility] Bacteria identified Cx Nom (U) GNR lactose occupational psychologist [facility] Bilirubin Test strip Ql (U)O rdered By: Bonny Glynn on 10-02-2022 Bilirubin Ql (U) Negative Negative [facility] Ketones Test strip Ql (U)Ord ered By: Bonny Glynn on 10-02-2022 Ketones Ql (U) Negative Negative [facility] Nitrite Test strip Ql (U)Ord ered By: Bonny Glynn on 10-02-2022 Nitrite Ql (U) Positive Negative [facility] Protein Test strip Ql (U)Ord ered By: Bonny Glynn on 10-02-2022 Protein Ql (U) 100 mg/dl Negative [facility] Urine blood detectionOrdered By: Bonny Glynn on 10-02-2022 RBC Ql (U) 25 /ul Negative [facility] Urine clarityOrdered By: Ysabel Glynn on 10-02-2022 Clarity (U) Cloudy Clear [facility] Urine color determinationOrd ered By: Bonny Glynn on 10-02-2022 Color (U) Yellow Yellow [facility] Urine glucose detectionOrder ed By: Bonny Glynn on 10-02-2022 Glucose Ql (U) 50 mg/dl Normal [facility] Urine leukocyte esterase det ection by dipstickOrdered By: Bonny Glynn on 10-02-2022 Leukocyte esterase Test strip Ql (U) 500 /ul Negative [facility] Urine pHOrdered By: Bonny orosco on 10-02-2022 pH (U) 6.0 [pH] 5.0 - 8.[address] [facility] Urine specific gravity measu rementOrdered By: Bonny Glynn on 10-02-2022 Specific gravity (U) [Rel density] 1.010 1.002-1.[address] [facility] Urobilinogen Auto test strip Ql (U)Ordered By: Bonny Glynn on 10-02-2022 Urobilinogen Ql (U) Normal mg/dl Normal [facility] PEDRO HILLMAN ([id number]) 1945 M Date Time Provider Department 07/28/22 JESSIE RODRIGUEZ [facility] During your visit today, we recorded the following information about you: Jessie Rodriguez APRN.DIRECTOR [employer]ANGUAGE 07/28/2022 1:45 PM Signed In reviewing patient's chart I do not see that he has had any follow up done in regards to his actionable chest xray finding. I left a message on patient's voicemail for him to call back and advise. Jessie Rodriguez APRN.SHANI Ortiz Ma 08/04/2022 10:00 AM Signed Pt PCP outside [facility]. Call to pt and notified him of Providers message. Pt states that he did talk to him. LOLYIMarianna Ortiz Ma Allergies As of Date: 07/28/2022 [...] Status:Closed by JESSIE RODRIGUEZ on 08/09/22 Normal [facility] Anaerobic cultureOrdered By: Bonny Glynn on 07-21-2022 Bacteria identified Anaer cx Nom (Unsp spec) No anaerobic bacteria isolated. [facility] Bacteria identified Cx Nom ( Wound)Ordered By: Bonny Glynn on 07-20-2022 Wound Culture Staphylococcus pseudintermediu [facility] Gram stain for investigation of transfusion reactionOrdered By: Bonny Glynn on 07-19-2022 Microscopic observation Gram stain Nom (Unsp spec) [facility] No Panel InformationOrdered By: Dr. Choi on 06-01-2022 Estimated GFR (MDRD) Amer 63 mL/min >[address] [facility] Comment on above: GFR Calc Estimated GFR (MDRD) Non-Af Amer 52 mL/min >[address] [facility] Comment on above: Non- GFR Calc Serum or plasma creatinine m easurement (mass/volume)Ordered By: Dr. Choi on 06-01-2022 Creatinine [Mass/Vol] 1.40 mg/dL 0.70-1.30 [facility] Comment on above: The validity of the calculated GFR & GFRAA in patients over 70 years has not been determined. Clinical correlation is essential. Basophil percentageon 2021 Basophil percentage < 0.9 mg/dL 0.70-1.30 [facility] Work Phone: No Panel Informationon 05-22 Bedside Estimated GFR (eGFR) > 60.0000 mL/min >[address] [facility] Work Phone: Absolute lymphocyte counton 04-14-2022 Lymphocytes Auto (Unsp spec) [#/Vol] 0.64 10*3/uL 0.83-4.[address] [facility] Work Phone: Basophil percentageon 2021 Basophil percentage 0 SEEN /hpf 0-5 [facility] Work Phone: Basophils/100 WBC (Bld) 0.3 % 0-1 [facility] Work Phone: Bilirubin [Mass/Vol] 0.50 mg/dL 0.20-1.00 [facility] Work Phone: Comment on above: For patients on eltr ombopag therapy, use of Dimension [place] TBIL is not recommended. Chloride [Moles/Vol] 103 mmol/L 98-107 [facility] Work Phone: Eosinophils/100 WBC (Bld) 0.5 % 0-[address] [facility] Work Phone: Glucose [Mass/Vol] 46 mg/dL 74-106 [facility] Work Phone: Comment on above: Glucose result less than 50 mg/dL suggests HYPOGLYCEMIA. Neutrophils (Bld) [#/Vol] 5.0 10*3/uL 2.0-7.[address] [facility] Work Phone: Neutrophils/100 WBC (Bld) 76.1 % 47-[address] [facility] Work Phone: [phone] Potassium [Moles/Vol] 4.2 mmol/L 3.5-5.1 [facility]: Protein [Mass/Vol] 8.2 g/dL 6.4-8.2 [facility] Work Phone: Sodium [Moles/Vol] 136 mmol/L 136-145 [facility] Work Phone: WBC (Bld) [#/Vol] 6.6 10*3/uL 4.4-11.0 [facility] Work Phone: Bilirubin Test strip Ql (U)o n 04-14-2022 Bilirubin Ql (U) Negative Negative [facility] Work Phone: Blood erythrocytes count (nu mber/volume)on 04-14-2022 RBC (Bld) [#/Vol] 5.00 10*6/uL 4.6-6.2 [facility] Work Phone: Blood hemoglobin measurement (mass/volume)on 04-14-2022 Hemoglobin (Bld) [Mass/Vol] 13.9 g/dL 13.0-16.[address] [facility] Work Phone: Blood lymphocytes/100 leukoc yteson 04-14-2022 Lymphocytes/100 WBC (Bld) 9.7 % 19-[address] [facility] Work Phone: Blood monocytes/100 leukocyt eson 04-14-2022 Monocytes/100 WBC (Bld) 12.3 % 0-10 [facility] Work Phone: Blood platelet mean volumeon 04-14-2022 Platelet mean volume (Bld) [Entitic vol] 10.5 fL 6.2-12.[address] [facility] Work Phone: Determination of erythrocyte mean corpuscular volume (MCV)on 04-14-2022 MCV (RBC) [Entitic vol] 86.4 fL 80-94 [facility] Work Phone: Glucose Glucometer (BldC) [M ass/Vol]on 04-14-2022 Glucose [Mass/Vol] 113 mg/dL 74-106 [facility] Work Phone: Comment on above: MANAGEMENT OF PATIEN T CARE PER NURSING PROTOCOL Hematocrit Auto (Bld) [Volum e fraction]on 04-14-2022 Hematocrit (Bld) [Volume fraction] 43.2 % 40-[address] [facility] Work Phone: INR in Blood by Coagulation assayon 04-14-2022 INR Coag (Bld) [Relative time] 1.1 {INR} [facility] Work Phone: Ketones Test strip Ql (U)on 04-14-2022 Ketones Ql (U) 5 mg/dl Negative [facility] Work Phone: Laboratory - Chemistry and C hemistry - challengeon 04-14-2022 ALP [Catalytic activity/Vol] 63 U/L 45-[address] [facility] Work Phone: ALT [Catalytic activity/Vol] 29 U/L 16-[address] [facility] Work Phone: CO2 [Moles/Vol] 25.0 mmol/L 21.0-32.[address] [facility] Work Phone: Globulin (S) [Mass/Vol] 5.1 g/dL 2.2-4.2 [facility] Work Phone: Urea nitrogen/Creatinine [Mass ratio] 37.6 mg/mg 10-[address] [facility] Work Phone: Laboratory - Coagulationon 0 04-14-2022 PT Coag (PPP) [Time] 14.0 s 11.7-14.9 [facility] Work Phone: Laboratory - Hematology and Cell countson 04-14-2022 Erythrocyte distribution width (RBC) [Entitic vol] 49.0 fL 35.1-43.9 [facility] Work Phone: Erythrocyte distribution width (RBC) [Ratio] 15.4 % 11.6-14.[address] [facility] Work Phone: Immature granulocytes/100 WBC (Bld) 1.100 % 0.0-0.[address] [facility] Work Phone: Comment on above: IG% - Immature Granu locytes (promyelocytes, myelocytes and metamyelocytes) > 1% indicates that a LEFT SHIFT is Present. MCH (RBC) [Entitic mass] 27.8 pg 27.0-32.[address] [facility] Work Phone: Nucleated RBC/100 WBC (Bld) [Ratio] 0 % 0-[address] [facility] Work Phone: MCHC Auto (RBC) [Mass/Vol]on 04-14-2022 MCHC (RBC) [Mass/Vol] 32.2 g/dL 32-36 [facility] Work Phone: Mucus LM Ql (Urine sed)on Mucus Ql (Urine sed) 0 SEEN /hpf [facility] Work Phone: Nitrite Test strip Ql (U)on 04-14-2022 Nitrite Ql (U) Negative Negative [facility] Work Phone: No Panel Informationon 04-14 Estimated Creatinine Clearance Calc 35.56 ml/min [facility] Work Phone: Estimated GFR (MDRD) Amer 55 mL/min >[address] [facility] Work Phone: Comment on above: GFR Calc Estimated GFR (MDRD) Non-Af Amer 46 mL/min >[address] [facility] Work Phone: Comment on above: Non- GFR Calc Platelets bldon 04-14-2022 Platelets (Bld) [#/Vol] 293 10*3/uL 150-[address] [facility] Work Phone: Platelets (Bld) [#/Vol] 287 10*3/uL 150-[address] [facility] Work Phone: Protein Test strip Ql (U)on 04-14-2022 Protein Ql (U) 30 mg/dl Negative [facility] Work Phone: Serum or plasma albumin kingsley urement (mass/volume)on 04-14-2022 Albumin [Mass/Vol] 3.1 g/dL 3.2-5.0 [facility] Work Phone: Serum or plasma albumin/glob ulin mass ratioon 04-14-2022 Albumin/Globulin [Mass ratio] 0.6 {ratio} 0.9-2.[address] [facility] Work Phone: Serum or plasma calcium kingsley urement (mass/volume)on 04-14-2022 Calcium [Mass/Vol] 9.9 mg/dL 8.5-10.1 [facility] Work Phone: Serum or plasma creatinine m easurement (mass/volume)on 04-14-2022 Creatinine [Mass/Vol] 1.57 mg/dL 0.70-1.30 [facility] Work Phone: Comment on above: The validity of the calculated GFR & GFRAA in patients over 70 years has not been determined. Clinical correlation is essential. Serum or plasma urea nitroge n measurement (mass/volume)on 04-14-2022 Urea nitrogen [Mass/Vol] 59 mg/dL 7-[address] [facility] Work Phone: Squamous epithelial cells de tection in urine sediment by light microscopyon 04-14-2022 Epithelial cells.squamous LM Ql (Urine sed) 0-5 SEEN /hpf 0-[address] [facility] Work Phone: Thin prep Papanicolaou smear with manual screeningon 04-14-2022 Thin prep Papanicolaou smear with manual screening 30 U/L 15-[address] [facility] Work Phone: Thin prep Papanicolaou smear with manual screening 8 5-[address] [facility] Work Phone: Urine blood detectionon 03-21 RBC Ql (U) Negative Negative [facility] Work Phone: RBC Ql (U) 0 SEEN /hpf 0-[address] [facility] Work Phone: Urine clarityon 04-14-2022 Clarity (U) Clear Clear [facility] Work Phone: Urine color determinationon 04-14-2022 Color (U) Yellow Yellow [facility] Work Phone: Urine glucose detectionon Glucose Ql (U) Normal mg/dl Normal [facility] Work Phone: Urine leukocyte esterase det ection by dipstickon 04-14-2022 Leukocyte esterase Test strip Ql (U) 25 /ul Negative [facility] Work Phone: Urine pHon 04-14-2022 pH (U) 6.0 [pH] 5.0 - 8.[address] [facility] Work Phone: Urine sediment bacteria coun t by microscopy (number/high power field)on 04-14-2022 Bacteria LM.HPF (Urine sed) [#/Area] 0 /[HPF] None Seen [facility] Work Phone: Urine specific gravity measu rementon 04-14-2022 Specific gravity (U) [Rel density] 1.010 1.002-1.[address] [facility] Work Phone: Urobilinogen Auto test strip Ql (U)on 04-14-2022 Urobilinogen Ql (U) Normal mg/dl Normal [facility] Work Phone: Basophil percentageon 2021 Creatinine [Mass/Vol] 1.4 mg/dL 0.70-1.30 [facility] Work Phone: Laboratory - Chemistry and C hemistry - challengeon 04-12-2022 GFR/1.73 sq M.predicted among non-blacks MDRD (S/P/Bld) [Vol rate/Area] 50.0000 mL/min/{1.73_m2} >[address] [facility] Work Phone: Adriana 04-06-2022 CNPN Telephone ([facility]) KADYPEDRO Melendez ([id number]) 1945 M Date Time Provider Department 04/06/22 [facility] During your visit today, we recorded [...] Signed Still unable to reach patient and handyperson is spouse with same number.Sigrid Mcok 04/07/2022 5:49 PM Signed Unable to reach patient. Mailbox full/Mailbox not set up/ Number incorrect. Please try again later. Ashley Ramirez Allie 04/08/2022 9:23 AM Signed left message on machine to give call back, different number from pharmacy. [phone]. Ashley Ramirez Allie 04/08/2022 2:56 PM Signed Notified pt of results, daughter will call to get information on restrictions. Ashley Mock Allergies As of Date: 04/06/2022 Noted Allergy [...] unspecified whether generalized*04/14/20 14 Encounter Status:Closed by ASHLEY MOCK on 04/08/22 Normal [facility] Bacteria Ur Culton 2 Bacteria identified Cx Nom (U) [id number] Abnormal [facility] Comment on above: Order Comment: Speci men Type: URINE SPECIMEN Ordering Facility: [facility] Address: [address] [place] [address] Result Comment: >=10 0,000 CFU/ml Streptococcus mitis-oralis group No further workup Performed By: #### 6 30-4 #### [facility] CLIA [id number] [address] [place], [place] [address] [place] CNOVon 04-05-2022 CNOV Office Visit ([facility]) PEDRO HILLMAN ([id number]) 1945 M Date Time Provider Department 04/05/22 1:15 PM JESSIE RODRIGUEZ [facility] During your visit today, we recorded the following information about you: Temperature Pulse Respiration Blood pressure 101.6 degrees 76/minute 16/minute 122/76 Weight 87.1 kg Jessie Rodriguez APRN.DIRECTOR SPEECH LANGUAGE 04/05/2022 3:51 PM Signed Subjective HPI Pedro Hillman is a 77 [...] COVID WITH FLUA+B, ROUTINE Jessie Rodriguez APRN.SHANI Rodriguez APRN.SHANI 04/05/2022 2:27 PM Addendum ASSESSMENT/PLAN: [...] up a (more content not included)... [facility] ([facility]) PEDOR HILLMAN ([id number]) 1945 M Date Time Provider Department 04/05/22 JESSIE RODRIGUEZ [facility] During your visit today, we recorded the following information about you: Jessie Rodriguez APRN.CNP 04/05/2022 2:59 PM Signed Radiology report faxed to patient's PCP Dr. Tonio Fajardo at [phone]. Confirmation of fax received. Patient was advised [...] 14 Encounter Status:Closed by JESSIE RODRIGUEZ on 04/05/22 Normal [facility] No Panel InformationOrdered By: Ccf Provider on 04-05-2022 Radiology Result ACTIONABLE Abnormal [facility] Comment on above: This report contains an [...] (POC)on 2021 BILIRUBIN UA (POCT) Negative Negative [facility] CLARITY UA (POCT) Cloudy [facility] COLOR UA (POCT) Dark yellow [facility] GLUCOSE UA (POCT) Negative Negative mg/dL [facility] HEMOGLOBIN/BLOOD UA (POCT) Small Abnormal Negative [facility] KETONE UA (POCT) Negative Negative mg/dL [facility] LEUKOCYTES UA (POCT) Large Abnormal Negative [facility] NITRITE UA (POCT) Negative Negative [facility] PH UA (POCT) 6.0 4.5 - 8.0 [facility] Protein Ql (U) 100 mg/dL Abnormal Negative mg/dL [facility] SPECIFIC GRAVITY UA (POCT) 1.020 1.005 - 1.030 [facility] UROBILINOGEN UA (POCT) 0.2 E.U./dL Umm l E.U./dL [facility] XR CHEST 2V FRONTAL/LATon XR CHEST 2V [...] be communicated with the ordering provider via [employer] staff message or phone message by [employer] within 2 business days of report finalization. Algorithms for management of incidental imaging findings can be found on the [facility] Intranet Sharepoint site at: [email or web address]://[email or web address] [email or web address]/[email or web address] links/Managing%20Inc idental%20Findi ngs%20at%20Imaging/F orms/AllItems.aspx Covered Buckle Assembler: JONATHAN Transcribe Date/Time: Apr 05 2022 2:11P Dictated by : SANDEEP ORTIZ MD This examination was interpreted and the report reviewed and electronically signed by: SANDEEP ORTIZ MD on Apr 05 2022 2:13PM EST [id number] CN ACTIONABLE Invalid Interpretation Code [facility] XR Chest PA and LateralOrder ed By: Cc Provider on 04-05-2022 Interpretation and review of laboratory results Abnormal [facility] XR Chest PA and Lateralon IMPRESSION: [...] be communicated with the ordering provider via [employer] staff message or phone message by [employer] within 2 business days of report finalization. Algorithms for management of incidental imaging findings can be found on the [facility] Intranet Sharepoint site at: [email or web address]://[email or web address] [email or web address]/mychart links/Managing%20Inc idental%20Findi ngs%20at%20Imaging/F orms/AllItems.aspx Covered Buckle Assembler: JONATHAN Transcribe Date/Time: Apr 05 2022 2:11P Dictated by : SANDEEP ORTIZ MD This examination was interpreted and the report reviewed and electronically signed by: SANDEEP ORTIZ MD on Apr 05 2022 2:13PM [facility] DIVISION OF RADIOLOGY * * *Final Report* [...] the thoracic spine. DIVISION OF RADIOLOGY Provider, [facility] [place] - 04/05/2022 * * *Final Report* * [...] be communicated with the ordering provider via [employer] staff message or phone message by [employer] within 2 business days of report finalization. Algorithms for management of incidental imaging findings can be found on the [facility] Intranet Sharepoint site at: [email or web address] [email or web address]/mychart links/Managing%20Inc idental%20Findi ngs%20at%20Imaging/F orms/AllItems.aspx Covered Buckle Assembler: JONATHAN Transcribe Date/Time: Apr 05 2022 2:11P Dictated by : SANDEEP ORTIZ MD This examination was interpreted and the report reviewed and electronically signed by: SANDEEP ORTIZ MD on Apr 05 2022 2:13PM EST [facility] Radiology Study observation (narrative) [facility] Anaerobic culture Bacteria identified Anaer cx Nom (Unsp spec) No anaerobic bacteria isolated. [facility] Work Phone: Bacteria identified Anaer cx Nom (Unsp spec) Anaerobic Culture Anaerobic cocci [facility] Work Phone: Bacteria identified Cx Nom ( Wound) Wound Culture Staphylococcus pseudintermediu [facility] Work Phone: Wound Culture Staphylococcus saprophyticus [facility] Work Phone: Gram stain for investigation of transfusion reaction Microscopic observation Gram stain Nom (Unsp spec) [facility] Work Phone: Vital Signs Date Time Vital Sign Value Performing Clinician Facility 03-17-2025 13:07-0400 Body height 167.[address] Tonio Fajardo DO Work Phone: [facility] 03-17-2025 13:07-0400 Body mass index (BMI) [Ratio] 26.6 kg/m2 Dr. Tonio Fajardo DO Work Phone: [facility] 03-17-2025 13:07-0400 Body weight 74.[address] Tonio Fajardo DO Work Phone: [facility] 03-17-2025 13:07-0400 Diastolic blood pressure 60 mm[Hg] Dr. Tonio Fajardo DO Work Phone: [facility] 03-17-2025 13:07-0400 Heart rate 101 /min Dr. Tonio Fajardo DO Work Phone: [facility] 03-17-2025 13:07-0400 Inhaled oxygen flow rate 3 L/min Dr. Tonio Fajardo DO Work Phone: [facility] 03-17-2025 13:07-0400 Respiratory rate 20 /min Dr. Tonio Fajardo DO Work Phone: [facility] 03-17-2025 13:07-0400 SaO2% (BldA) [Mass fraction] 96 % Dr. Tonio Fajardo DO Work Phone: [facility] 03-17-2025 13:07-0400 Systolic blood pressure 124 mm[Hg] Dr. Tonio Fajardo DO Work Phone: [facility] 03-15-2025 18:32-0400 Body temperature 98.1 [degF] Dr. Tonio Fajardo DO Work Phone: [facility] 03-15-2025 18:32-0400 Diastolic blood pressure 71 mm[Hg] Dr. Tonio Fajardo DO Work Phone: [facility] 03-15-2025 18:32-0400 Heart rate 101 /min Dr. Tonio Fajardo DO Work Phone: [facility] 03-15-2025 18:32-0400 Respiratory rate 18 /min Dr. Tonio Fajardo DO Work Phone: [facility] 03-15-2025 18:32-0400 SaO2% (BldA) [Mass fraction] 93 % Dr. Tonio Fajardo DO Work Phone: [facility] 03-15-2025 18:32-0400 Systolic blood pressure 168 mm[Hg] Dr. Tonio Fajardo DO Work Phone: [facility] 03-15-2025 16:58-0400 Body height 167.[address] Tonio Fajardo DO Work Phone: [facility] 03-15-2025 16:58-0400 Body mass index (BMI) [Ratio] 27.8 kg/m2 Dr. Tonio Fajardo DO Work Phone: [facility] 03-15-2025 16:58-0400 Body weight 78.[address] Tonio Fajardo DO Work Phone: [facility] 03-15-2025 16:58-0400 Inhaled oxygen flow rate 3 L/min Dr. Tonio Fajardo DO Work Phone: [facility] 03-09-2025 16:22-0400 Body temperature 98.5 [degF] Dr. Tonio Fajardo DO Work Phone: [facility] 03-09-2025 16:22-0400 Heart rate 78 /min Dr. Tonio Fajardo DO Work Phone: [facility] 03-09-2025 16:22-0400 Inhaled oxygen flow rate 3 L/min Dr. Tonio Fajardo DO Work Phone: [facility] 03-09-2025 16:22-0400 Respiratory rate 20 /min Dr. Tonio Fajardo DO Work Phone: [facility] 03-09-2025 16:22-0400 SaO2% (BldA) [Mass fraction] 92 % Dr. Tonio Fajardo DO Work Phone: [facility] 03-09-2025 11:48-0400 Inhaled oxygen flow rate 2 L/min Dr. Tonio Fajardo DO Work Phone: [facility] 03-09-2025 11:48-0400 SaO2% (BldA) [Mass fraction] 79 % Dr. Tonio Fajardo DO Work Phone: [facility] 03-09-2025 11:11-0400 Body height 167.[address] Tonio Fajardo DO Work Phone: [facility] 03-09-2025 11:11-0400 Body weight 78.[address] Tonio Fajardo DO Work Phone: [facility] 03-09-2025 10:00-0400 Diastolic blood pressure 51 mm[Hg] Dr. Tonio Fajardo DO Work Phone: [facility] 03-09-2025 10:00-0400 Heart rate 97 /min Dr. Tonio Fajardo DO Work Phone: [facility] 03-09-2025 10:00-0400 Systolic blood pressure 129 mm[Hg] Dr. Tonio Fajardo DO Work Phone: [facility] 03-09-2025 05:00-0400 Body mass index (BMI) [Ratio] 28 kg/m2 Dr. Tonio Fajardo DO Work Phone: [facility] 03-04-2025 20:49-0400 Body temperature 98.6 [degF] Dr. Tonio Fajardo DO Work Phone: [facility] 03-04-2025 20:49-0400 Diastolic blood pressure 70 mm[Hg] Dr. Tonio Fajardo DO Work Phone: [facility] 03-04-2025 20:49-0400 Heart rate 114 /min Dr. Tonio Fajardo DO Work Phone: [facility] 03-04-2025 20:49-0400 Respiratory rate 20 /min Dr. Tonio Fajardo DO Work Phone: [facility] 03-04-2025 20:49-0400 SaO2% (BldA) [Mass fraction] 100 % Dr. Tonio Fajardo DO Work Phone: [facility] 03-04-2025 20:49-0400 Systolic blood pressure 153 mm[Hg] Dr. Tonio Fajardo DO Work Phone: [facility] 03-04-2025 20:00-0400 Inhaled oxygen flow rate 4 L/min Dr. Tonio Fajardo DO Work Phone: [facility] 03-04-2025 15:01-0400 Body height 167.[address] Tonio Fajardo DO Work Phone: [facility] 03-04-2025 15:01-0400 Body mass index (BMI) [Ratio] 25.9 kg/m2 Dr. Tonio Fajardo DO Work Phone: [facility] 03-04-2025 15:01-0400 Body weight 73.[address] Tonio Fajardo DO Work Phone: [facility] 11-06-2024 14:45-0400 Body height 167.[address] Tonio Fajardo DO Work Phone: [facility] 11-06-2024 14:45-0400 Body mass index (BMI) [Ratio] 28.5 kg/m2 Dr. Tonio Fajardo DO Work Phone: [facility] 11-06-2024 14:45-0400 Body temperature 98.5 [degF] Dr. Tonio Fajardo DO Work Phone: [facility] 11-06-2024 14:45-0400 Body weight 80.[address] Tonio Fajardo DO Work Phone: [facility] 11-06-2024 14:45-0400 Diastolic blood pressure 55 mm[Hg] Dr. Tonio Fajardo DO Work Phone: [facility] 11-06-2024 14:45-0400 Heart rate 55 /min Dr. Tonio Fajardo DO Work Phone: [facility] 11-06-2024 14:45-0400 Respiratory rate 18 /min Dr. Tonio Fajardo DO Work Phone: [facility] 11-06-2024 14:45-0400 SaO2% (BldA) [Mass fraction] 95 % Dr. Tonio Fajardo DO Work Phone: [facility] 11-06-2024 14:45-0400 Systolic blood pressure 116 mm[Hg] Dr. Tonio Fajardo DO Work Phone: [facility] 10-23-2024 09:06-0500 Body mass index (BMI) [Ratio] 28.5 kg/m2 Dr. Tonio Fajardo DO Work Phone: [facility] 10-23-2024 09:06-0500 Body temperature 97.4 [degF] Dr. Tonio Fajardo DO Work Phone: [facility] 10-23-2024 09:06-0500 Body weight 80.[address] Tonio Fajardo DO Work Phone: [facility] 10-23-2024 09:06-0500 Diastolic blood pressure 56 mm[Hg] Dr. Tonio Fajardo DO Work Phone: [facility] 10-23-2024 09:06-0500 Heart rate 52 /min Dr. Tonio Fajadro DO Work Phone: [facility] 10-23-2024 09:06-0500 Inhaled oxygen flow rate 3 L/min Dr. Tonio Fajardo DO Work Phone: [facility] 10-23-2024 09:06-0500 Respiratory rate 26 /min Dr. Tonio Fajardo DO Work Phone: [facility] 10-23-2024 09:06-0500 SaO2% (BldA) [Mass fraction] 97 % Dr. Tonio Fajardo DO Work Phone: [facility] 10-23-2024 09:06-0500 Systolic blood pressure 128 mm[Hg] Dr. Tonio Fajardo DO Work Phone: [facility] 10-16-2024 13:24-0500 Body height 167.[address] Tonio Fajardo DO Work Phone: [facility] 10-16-2024 13:24-0500 Body weight 78.[address] Tonio Fajardo DO Work Phone: [facility] 10-16-2024 13:24-0500 Heart rate 98 /min Dr. Tonio Fajardo DO Work Phone: [facility] 10-16-2024 13:24-0500 Inhaled oxygen flow rate 2 L/min Dr. Tonio Fajardo DO Work Phone: [facility] 10-16-2024 13:24-0500 SaO2% (BldA) [Mass fraction] 96 % Dr. Tonio Fajardo DO Work Phone: [facility] 09-25-2024 12:59-0500 Body mass index (BMI) [Ratio] 27.7 kg/m2 Dr. Tonio Fajardo DO Work Phone: [facility] 09-25-2024 12:59-0500 Body weight 80.[address] Tonio Fajardo DO Work Phone: [facility] 09-25-2024 12:59-0500 Diastolic blood pressure 75 mm[Hg] Dr. Tonio Fajardo DO Work Phone: [facility] 09-25-2024 12:59-0500 Heart rate 99 /min Dr. Tonio Fajardo DO Work Phone: [facility] 09-25-2024 12:59-0500 Respiratory rate 18 /min Dr. Tonio Fajardo DO Work Phone: [facility] 09-25-2024 12:59-0500 SaO2% (BldA) [Mass fraction] 90 % Dr. Tonio Fajardo DO Work Phone: [facility] 09-25-2024 12:59-0500 Systolic blood pressure 120 mm[Hg] Dr. Tonio Fajardo DO Work Phone: [facility] 11-12-2023 13:22-0400 Body height 170.[address] Tonio Fajardo Work Phone: [facility] 11-12-2023 13:22-0400 Body mass index (BMI) [Ratio] 28 kg/m2 Dr. Tonio Fajardo Work Phone: [facility] 11-12-2023 13:22-0400 Body temperature 97.9 [degF] Dr. Tonio Fajardo Work Phone: [facility] 11-12-2023 13:22-0400 Body weight 81.[address] Tonio Fajardo Work Phone: [facility] 11-12-2023 13:22-0400 Diastolic blood pressure 62 mm[Hg] Dr. Tonio Fajardo Work Phone: [facility] 11-12-2023 13:22-0400 Heart rate 103 /min Dr. Tonio Fajardo Work Phone: [facility] 11-12-2023 13:22-0400 Respiratory rate 18 /min Dr. Tonio Fajardo Work Phone: [facility] 11-12-2023 13:22-0400 SaO2% (BldA) [Mass fraction] 98 % Dr. Tonio Fajardo Work Phone: [facility] 11-12-2023 13:22-0400 Systolic blood pressure 97 mm[Hg] Dr. Tonio Fajardo Work Phone: [facility] 10-31-2023 12:05-0400 Body mass index (BMI) [Ratio] 27.3 kg/m2 Dr. Tonio Fajardo Work Phone: [facility] 10-31-2023 12:05-0400 Body temperature 98.2 [degF] Dr. Tonio Fajardo Work Phone: [facility] 10-31-2023 12:05-0400 Body weight 79.[address] Tonio Fajardo Work Phone: [facility] 10-31-2023 12:05-0400 Diastolic blood pressure 71 mm[Hg] Dr. Tonio Fajardo Work Phone: [facility] 10-31-2023 12:05-0400 Heart rate 78 /min Dr. Tonio Fajardo Work Phone: [facility] 10-31-2023 12:05-0400 Respiratory rate 18 /min Dr. Tonio Fajardo Work Phone: [facility] 10-31-2023 12:05-0400 SaO2% (BldA) [Mass fraction] 94 % Dr. Tonio Fajardo Work Phone: [facility] 10-31-2023 12:05-0400 Systolic blood pressure 119 mm[Hg] Dr. Tonio Fajardo Work Phone: [facility] 10-18-2023 14:51-0500 Body mass index (BMI) [Ratio] 28 kg/m2 Dr. Tonio Fajardo Work Phone: [facility] 10-18-2023 14:51-0500 Body temperature 98.9 [degF] Dr. Tonio Fajardo Work Phone: [facility] 10-18-2023 14:51-0500 Body weight 81.[address] Tonio Fajardo Work Phone: [facility] 10-18-2023 14:51-0500 Diastolic blood pressure 60 mm[Hg] Dr. Tonio Fajardo Work Phone: [facility] 10-18-2023 14:51-0500 Heart rate 98 /min Dr. Tonio Fajardo Work Phone: [facility] 10-18-2023 14:51-0500 Respiratory rate 18 /min Dr. Tonio Fajardo Work Phone: [facility] 10-18-2023 14:51-0500 SaO2% (BldA) [Mass fraction] 96 % Dr. Tonio Fajardo Work Phone: [facility] 10-18-2023 14:51-0500 Systolic blood pressure 114 mm[Hg] Dr. Tonio Fajardo Work Phone: [facility] 08-29-2023 12:52-0500 Body height 170.[address] Tonio Fajardo Work Phone: [facility] 08-29-2023 12:52-0500 Body mass index (BMI) [Ratio] 27.8 kg/m2 Dr. Tonio Fajardo Work Phone: [facility] 08-29-2023 12:52-0500 Body weight 80.[address] Tonio Fajardo Work Phone: [facility] 08-29-2023 12:52-0500 Diastolic blood pressure 71 mm[Hg] Dr. Tonio Fajardo Work Phone: [facility] 08-29-2023 12:52-0500 Heart rate 95 /min Dr. Tonio Fajardo Work Phone: [facility] 08-29-2023 12:52-0500 Respiratory rate 18 /min Dr. Tonio Fajardo Work Phone: [facility] 08-29-2023 12:52-0500 SaO2% (BldA) [Mass fraction] 97 % Dr. Tonio Fajardo Work Phone: [facility] 08-29-2023 12:52-0500 Systolic blood pressure 111 mm[Hg] Dr. Tonio Fajardo Work Phone: [facility] 07-25-2023 07:50-0500 Body height 170.[address] Tonio Fajardo Work Phone: [facility] 07-25-2023 07:50-0500 Body mass index (BMI) [Ratio] 29.4 kg/m2 Dr. Tonio Fajardo Work Phone: [facility] 07-25-2023 07:50-0500 Body temperature 96.2 [degF] Dr. Tonio Fajardo Work Phone: [facility] 07-25-2023 07:50-0500 Body weight 85.[address] Tonio Fajardo Work Phone: [facility] 07-25-2023 07:50-0500 Diastolic blood pressure 75 mm[Hg] Dr. Tonio Fajardo Work Phone: [facility] 07-25-2023 07:50-0500 Heart rate 53 /min Dr. Tonio Fajardo Work Phone: [facility] 07-25-2023 07:50-0500 Respiratory rate 20 /min Dr. Tonio Fajardo Work Phone: [facility] 07-25-2023 07:50-0500 SaO2% (BldA) [Mass fraction] 82 % Dr. Tonio Fajardo Work Phone: [facility] 07-25-2023 07:50-0500 Systolic blood pressure 119 mm[Hg] Dr. Tonio Fajardo Work Phone: [facility] 06-08-2023 14:33-0400 Body temperature 97.1 [degF] Dr. Tonio Fajardo Work Phone: [facility] 06-08-2023 14:33-0400 Diastolic blood pressure 67 mm[Hg] Dr. Tonio Fajardo Work Phone: [facility] 06-08-2023 14:33-0400 Heart rate 103 /min Dr. Tonio Fajardo Work Phone: [facility] 06-08-2023 14:33-0400 Respiratory rate 14 /min Dr. Tonio Fajardo Work Phone: [facility] 06-08-2023 14:33-0400 SaO2% (BldA) [Mass fraction] 93 % Dr. Tonio Fajardo Work Phone: [facility] 06-08-2023 14:33-0400 Systolic blood pressure 133 mm[Hg] Dr. Tonio Fajardo Work Phone: [facility] 06-08-2023 12:20-0400 Body height 170.[address] Tonio Fajardo Work Phone: [facility] 06-08-2023 12:20-0400 Body mass index (BMI) [Ratio] 29.3 kg/m2 Dr. Tonio Fajardo Work Phone: [facility] 06-08-2023 12:20-0400 Body weight [address] Tonio Fajardo Work Phone: [facility] 05-02-2023 13:50-0400 Diastolic blood pressure 63 mm[Hg] Dr. Tonio Fajardo Work Phone: [facility] 05-02-2023 13:50-0400 Heart rate 97 /min Dr. Tonio Fajardo Work Phone: [facility] 05-02-2023 13:50-0400 Respiratory rate 18 /min Dr. Tonio Fajardo Work Phone: [facility] 05-02-2023 13:50-0400 Systolic blood pressure 113 mm[Hg] Dr. Tonio Fajardo Work Phone: [facility] 04-25-2023 14:04-0400 Body temperature 97.9 [degF] Dr. Tonio Fajardo Work Phone: [facility] 04-18-2023 13:24-0400 Body temperature 97.5 [degF] Dr. Tonio Fajardo Work Phone: [facility] 04-18-2023 13:24-0400 Diastolic blood pressure 77 mm[Hg] Dr. Tonio Fajardo Work Phone: [facility] 04-18-2023 13:24-0400 Heart rate 109 /min Dr. Tonio Fajardo Work Phone: [facility] 04-18-2023 13:24-0400 Respiratory rate 16 /min Dr. Tonio Fajardo Work Phone: [facility] 04-18-2023 13:24-0400 Systolic blood pressure 141 mm[Hg] Dr. Tonio Fajardo Work Phone: [facility] 04-17-2023 11:08-0400 Body height 167.[address] Tonio Fajardo Work Phone: [facility] 04-17-2023 11:08-0400 Body mass index (BMI) [Ratio] 30.2 kg/m2 Dr. Tonio Fajardo Work Phone: [facility] 04-17-2023 11:08-0400 Body temperature 98.6 [degF] Dr. Tonio Fajardo Work Phone: [facility] 04-17-2023 11:08-0400 Body weight 84.[address] Tonio Fajardo Work Phone: [facility] 04-17-2023 11:08-0400 Diastolic blood pressure 87 mm[Hg] Dr. Tonio Fajardo Work Phone: [facility] 04-17-2023 11:08-0400 Heart rate 87 /min Dr. Tonio Fajardo Work Phone: [facility] 04-17-2023 11:08-0400 Respiratory rate 18 /min Dr. Tonio Fajardo Work Phone: [facility] 04-17-2023 11:08-0400 SaO2% (BldA) [Mass fraction] 95 % Dr. Tonio Fajardo Work Phone: [facility] 04-17-2023 11:08-0400 Systolic blood pressure 130 mm[Hg] Dr. Tonio Fajardo Work Phone: [facility] 04-02-2023 11:24-0400 Body temperature 98.6 [degF] Dr. Tonio Fajardo Work Phone: [facility] 04-02-2023 11:24-0400 Diastolic blood pressure 55 mm[Hg] Dr. Tonio Fajardo Work Phone: [facility] 04-02-2023 11:24-0400 Heart rate 101 /min Dr. Tonio Fajardo Work Phone: [facility] 04-02-2023 11:24-0400 Respiratory rate 20 /min Dr. Tonio Fajardo Work Phone: [facility] 04-02-2023 11:24-0400 Systolic blood pressure 114 mm[Hg] Dr. Toino Fajardo Work Phone: [facility] 03-19-2023 10:28-0400 Body temperature 98.2 [degF] Dr. Tonio Fajardo Work Phone: [facility] 03-19-2023 10:28-0400 Diastolic blood pressure 59 mm[Hg] Dr. Tonio Fajardo Work Phone: [facility] 03-19-2023 10:28-0400 Heart rate 106 /min Dr. Tonio Fajardo Work Phone: [facility] 03-19-2023 10:28-0400 Respiratory rate 20 /min Dr. Tonio Fajardo Work Phone: [facility] 03-19-2023 10:28-0400 Systolic blood pressure 120 mm[Hg] Dr. Tonio Fajardo Work Phone: [facility] 02-05-2023 13:10-0400 Body temperature 97.6 [degF] Dr. Tonio Fajardo Work Phone: [facility] 02-05-2023 13:10-0400 Diastolic blood pressure 76 mm[Hg] Dr. Tonio Fajardo Work Phone: [facility] 02-05-2023 13:10-0400 Heart rate 109 /min Dr. Tonio Fajardo Work Phone: [facility] 02-05-2023 13:10-0400 Respiratory rate 18 /min Dr. Tonio Fajardo Work Phone: [facility] 02-05-2023 13:10-0400 Systolic blood pressure 160 mm[Hg] Dr. Tonio Fajardo Work Phone: [facility] 01-08-2023 13:37-0400 Body temperature 96.7 [degF] Dr. Tonio Fajardo Work Phone: [facility] 01-08-2023 13:37-0400 Diastolic blood pressure 46 mm[Hg] Dr. Tonio Fajardo Work Phone: [facility] 01-08-2023 13:37-0400 Heart rate 111 /min Dr. Tonio Fajardo Work Phone: [facility] 01-08-2023 13:37-0400 Systolic blood pressure 121 mm[Hg] Dr. Tonio Fajardo Work Phone: [facility] 12-31-2022 00:58-0400 Body temperature 98.7 [degF] Dr. Tonio Fajardo Work Phone: [facility] 12-31-2022 00:58-0400 Diastolic blood pressure 59 mm[Hg] Dr. Tonio Fajardo Work Phone: [facility] 12-31-2022 00:58-0400 Heart rate 111 /min Dr. Tonio Fajardo Work Phone: [facility] 12-31-2022 00:58-0400 Respiratory rate 26 /min Dr. Tonio Fajardo Work Phone: [facility] 12-31-2022 00:58-0400 SaO2% (BldA) [Mass fraction] 93 % Dr. Tonio Fajardo Work Phone: [facility] 12-31-2022 00:58-0400 Systolic blood pressure 131 mm[Hg] Dr. Tonio Fajardo Work Phone: [facility] 12-30-2022 22:36-0400 Body height 167.[address] Tonio Fajardo Work Phone: [facility] 12-30-2022 22:36-0400 Body mass index (BMI) [Ratio] 30.5 kg/m2 Dr. Tonio Fajardo Work Phone: [facility] 12-30-2022 22:36-0400 Body weight 85.[address] Tonio Fajardo Work Phone: [facility] 12-25-2022 14:53-0400 Body temperature 97.7 [degF] Dr. Tonio Fajardo Work Phone: [facility] 12-25-2022 14:53-0400 Diastolic blood pressure 51 mm[Hg] Dr. Tonio Fajardo Work Phone: [facility] 12-25-2022 14:53-0400 Heart rate 110 /min Dr. Tonio Fajardo Work Phone: [facility] 12-25-2022 14:53-0400 Respiratory rate 18 /min Dr. Tonio Fajardo Work Phone: [facility] 12-25-2022 14:53-0400 Systolic blood pressure 101 mm[Hg] Dr. Tonio Fajardo Work Phone: [facility] 12-12-2022 10:49-0400 Body height 167.[address] Tonio Fajardo Work Phone: [facility] 12-12-2022 10:49-0400 Body mass index (BMI) [Ratio] 29.7 kg/m2 Dr. Tonio Fajardo Work Phone: [facility] 12-12-2022 10:49-0400 Body temperature 97.4 [degF] Dr. Tonio Fajardo Work Phone: [facility] 12-12-2022 10:49-0400 Body weight 83.[address] Tonio Fajardo Work Phone: [facility] 12-12-2022 10:49-0400 Diastolic blood pressure 71 mm[Hg] Dr. Tonio Fajardo Work Phone: [facility] 12-12-2022 10:49-0400 Heart rate 114 /min Dr. Tonio Fajardo Work Phone: [facility] 12-12-2022 10:49-0400 Respiratory rate 18 /min Dr. Tonio Fajardo Work Phone: [facility] 12-12-2022 10:49-0400 SaO2% (BldA) [Mass fraction] 96 % Dr. Tonio Fajardo Work Phone: [facility] 04-25-2023 10:49-0400 Systolic blood pressure 135 mm[Hg] Dr. Tonio Fajardo Work Phone: [facility] 12-11-2022 13:12-0400 Body temperature 96.2 [degF] Dr. Tonio Fajardo Work Phone: [facility] 12-11-2022 13:12-0400 Diastolic blood pressure 87 mm[Hg] Dr. Tonio Fajardo Work Phone: [facility] 12-11-2022 13:12-0400 Heart rate 107 /min Dr. Tonio Fajardo Work Phone: [facility] 12-11-2022 13:12-0400 Respiratory rate 20 /min Dr. Tonio Fajardo Work Phone: [facility] 12-11-2022 13:12-0400 Systolic blood pressure 110 mm[Hg] Dr. Tonio Fajardo Work Phone: [facility] 11-16-2022 13:13-0400 Diastolic blood pressure 49 mm[Hg] Dr. Tonio Fajardo Work Phone: [facility] 11-16-2022 13:13-0400 Heart rate 82 /min Dr. Tonio Fajardo Work Phone: [facility] 11-16-2022 13:13-0400 Respiratory rate 16 /min Dr. Tonio Fajardo Work Phone: [facility] 11-16-2022 13:13-0400 Systolic blood pressure 125 mm[Hg] Dr. Tonio Fajardo Work Phone: [facility] 11-08-2022 09:52-0400 Body temperature 97.3 [degF] Dr. Tonio Fajardo Work Phone: [facility] 10-16-2022 14:07-0500 Body height 167.[address] Tonio Fajardo Work Phone: [facility] 10-16-2022 14:05-0500 Body mass index (BMI) [Ratio] 29.8 kg/m2 Dr. Tonio Fajardo Work Phone: [facility] 10-16-2022 14:05-0500 Body temperature 97.6 [degF] Dr. Tonio Fajardo Work Phone: [facility] 10-16-2022 14:05-0500 Body weight 83.[address] Tonio Fajardo Work Phone: [facility] 10-16-2022 14:05-0500 Diastolic blood pressure 89 mm[Hg] Dr. Tonio Fajardo Work Phone: [facility] 10-16-2022 14:05-0500 Heart rate 78 /min Dr. Tonio Fajardo Work Phone: [facility] 10-16-2022 14:05-0500 Respiratory rate 18 /min Dr. Tonio Fajardo Work Phone: [facility] 10-16-2022 14:05-0500 SaO2% (BldA) [Mass fraction] 94 % Dr. Tonio Fajardo Work Phone: [facility] 10-16-2022 14:05-0500 Systolic blood pressure 145 mm[Hg] Dr. Tonio Fajardo Work Phone: [facility] 10-16-2022 13:24-0500 Body mass index (BMI) [Ratio] 29.8 kg/m2 Dr. Tonio Fajardo Work Phone: [facility] 10-16-2022 13:24-0500 Body temperature 98.6 [degF] Dr. Tonio Fajardo Work Phone: [facility] 10-16-2022 13:24-0500 Body weight 83.[address] Tonio Fajardo Work Phone: [facility] 10-16-2022 13:24-0500 Diastolic blood pressure 74 mm[Hg] Dr. Tonio Fajardo Work Phone: [facility] 10-16-2022 13:24-0500 Heart rate 75 /min Dr. Tonio Fajardo Work Phone: [facility] 10-16-2022 13:24-0500 Respiratory rate 18 /min Dr. Tonio Fajardo Work Phone: [facility] 10-16-2022 13:24-0500 SaO2% (BldA) [Mass fraction] 94 % Dr. Tonio Fajardo Work Phone: [facility] 10-16-2022 13:24-0500 Systolic blood pressure 146 mm[Hg] Dr. Tonio Fajardo Work Phone: [facility] 10-09-2022 12:59-0500 Body temperature 97.5 [degF] Dr. Tonio Fajardo Work Phone: [facility] 10-09-2022 12:59-0500 Diastolic blood pressure 63 mm[Hg] Dr. Tonio Fajardo Work Phone: [facility] 10-09-2022 12:59-0500 Heart rate 89 /min Dr. Tonio Fajardo Work Phone: [facility] 10-09-2022 12:59-0500 Respiratory rate 22 /min Dr. Tonio Fajardo Work Phone: [facility] 10-09-2022 12:59-0500 Systolic blood pressure 148 mm[Hg] Dr. Tonio Fajardo Work Phone: [facility] 09-18-2022 09:49-0500 Body temperature 97.3 [degF] Dr. Tonio Fajardo Work Phone: [facility] 09-18-2022 09:49-0500 Diastolic blood pressure 44 mm[Hg] Dr. Tonio Fajardo Work Phone: [facility] 09-18-2022 09:49-0500 Heart rate 66 /min Dr. Tonio Fajardo Work Phone: [facility] 09-18-2022 09:49-0500 Respiratory rate 18 /min Dr. Tonio Fajarod Work Phone: [facility] 09-18-2022 09:49-0500 Systolic blood pressure 138 mm[Hg] Dr. Tonio Fajardo Work Phone: [facility] 08-15-2022 13:56-0500 Body temperature 97.1 [degF] Dr. Tnoio Fajardo Work Phone: [facility] 08-15-2022 13:56-0500 Diastolic blood pressure 43 mm[Hg] Dr. Tonio Fajardo Work Phone: [facility] 08-15-2022 13:56-0500 Heart rate 73 /min Dr. Tonio Fajardo Work Phone: [facility] 08-15-2022 13:56-0500 Respiratory rate 16 /min Dr. Tonio Fajardo Work Phone: [facility] 08-15-2022 13:56-0500 Systolic blood pressure 139 mm[Hg] Dr. Tonio Fajardo Work Phone: [facility] 08-08-2022 14:00-0500 Body height 167.[address] Tonio Fajardo Work Phone: [facility] 08-08-2022 13:57-0500 Body mass index (BMI) [Ratio] 29.5 kg/m2 Dr. Tonio Fajardo Work Phone: [facility] 08-08-2022 13:57-0500 Body temperature 97.5 [degF] Dr. Tonio Fajardo Work Phone: [facility] 08-08-2022 13:57-0500 Body weight 83.[address] Tonio Fajardo Work Phone: [facility] 08-08-2022 13:57-0500 Diastolic blood pressure 54 mm[Hg] Dr. Tonio Fajardo Work Phone: [facility] 08-08-2022 13:57-0500 Heart rate 67 /min Dr. Tnoio Fajardo Work Phone: [facility] 08-08-2022 13:57-0500 Respiratory rate 16 /min Dr. Tonio Fajardo Work Phone: [facility] 08-08-2022 13:57-0500 SaO2% (BldA) [Mass fraction] 94 % Dr. Tonio Fajardo Work Phone: [facility] 08-08-2022 13:57-0500 Systolic blood pressure 109 mm[Hg] Dr. Tonio Fajardo Work Phone: [facility] 07-19-2022 14:30-0500 Body height 167.[address] Tonio Fajardo Work Phone: [facility] Work Phone: 07-19-2022 14:30-0500 Body mass index (BMI) [Ratio] 29 kg/m2 Dr. Tonio Fajardo Work Phone: [facility] 07-19-2022 14:30-0500 Body weight 81.[address] Tonio Fajardo Work Phone: [facility] 07-19-2022 14:30-0500 Diastolic blood pressure 62 mm[Hg] Dr. Tonio Fajardo Work Phone: [facility] 07-19-2022 14:30-0500 Heart rate 66 /min Dr. Tonio Fajardo Work Phone: [facility] 07-19-2022 14:30-0500 Respiratory rate 24 /min Dr. Tonio Fajardo Work Phone: [facility] 07-19-2022 14:30-0500 SaO2% (BldA) [Mass fraction] 97 % Dr. Tonio Fajardo Work Phone: [facility] 07-19-2022 14:30-0500 Systolic blood pressure 117 mm[Hg] Dr. Tonio Fajardo Work Phone: [facility] 07-18-2022 13:29-0500 Body temperature 97.1 [degF] Dr. Tonio Fajardo Work Phone: [facility] 07-18-2022 13:29-0500 Diastolic blood pressure 57 mm[Hg] Dr. Tonio Fajardo Work Phone: [facility] 07-18-2022 13:29-0500 Heart rate 83 /min Dr. Tonio Fajardo Work Phone: [facility] 07-18-2022 13:29-0500 Respiratory rate 16 /min Dr. Tonio Fajardo Work Phone: [facility] 07-18-2022 13:29-0500 Systolic blood pressure 117 mm[Hg] Dr. Tonio Fajardo Work Phone: [facility] 07-17-2022 11:23-0500 Body temperature 98.3 [degF] Dr. Tonio Fajardo Work Phone: [facility] 07-17-2022 11:23-0500 Diastolic blood pressure 58 mm[Hg] Dr. Tonio Fajardo Work Phone: [facility] 07-17-2022 11:23-0500 Heart rate 63 /min Dr. Tonio Fajardo Work Phone: [facility] 07-17-2022 11:23-0500 Respiratory rate 16 /min Dr. Tonio Fajardo Work Phone: [facility] 07-17-2022 11:23-0500 SaO2% (BldA) [Mass fraction] 97 % Dr. Tonio Fajardo Work Phone: [facility] 07-17-2022 11:23-0500 Systolic blood pressure 107 mm[Hg] Dr. Tonio Fajardo Work Phone: [facility] 07-05-2022 14:00-0500 Body mass index (BMI) [Ratio] 29 kg/m2 Dr. Tonio Fajardo Work Phone: [facility] 07-05-2022 14:00-0500 Body temperature 96.9 [degF] Dr. Tonio Fajardo Work Phone: [facility] 07-05-2022 14:00-0500 Body weight 81.[address] Tonio Fajardo Work Phone: [facility] 07-05-2022 14:00-0500 Diastolic blood pressure 63 mm[Hg] Dr. Tonio Fajardo Work Phone: [facility] 07-05-2022 14:00-0500 Heart rate 66 /min Dr. Tonio Fajardo Work Phone: [facility] 07-05-2022 14:00-0500 Respiratory rate 16 /min Dr. Tonio Fajardo Work Phone: [facility] 07-05-2022 14:00-0500 SaO2% (BldA) [Mass fraction] 97 % Dr. Tonio Fajardo Work Phone: [facility] 07-05-2022 14:00-0500 Systolic blood pressure 156 mm[Hg] Dr. Tonio Fajardo Work Phone: [facility] 06-28-2022 14:11-0500 Body mass index (BMI) [Ratio] 29.6 kg/m2 Dr. Tonio Fajardo Work Phone: [facility] 06-28-2022 14:11-0500 Body temperature 97.1 [degF] Dr. Tonio Fajardo Work Phone: [facility] 06-28-2022 14:11-0500 Body weight 83.[address] Tonio Fajardo Work Phone: [facility] 06-28-2022 14:11-0500 Diastolic blood pressure 58 mm[Hg] Dr. Tonio Fajardo Work Phone: [facility] 06-28-2022 14:11-0500 Heart rate 77 /min Dr. Tonio Fajardo Work Phone: [facility] 06-28-2022 14:11-0500 Respiratory rate 16 /min Dr. Tonio Fajardo Work Phone: [facility] 06-28-2022 14:11-0500 SaO2% (BldA) [Mass fraction] 89 % Dr. Tonio Fajardo Work Phone: [facility] 06-28-2022 14:11-0500 Systolic blood pressure 124 mm[Hg] Dr. Tonio Fajardo Work Phone: [facility] 06-21-2022 13:57-0400 Body mass index (BMI) [Ratio] 29.8 kg/m2 Dr. Tonio Fajardo Work Phone: [facility] 06-21-2022 13:57-0400 Body temperature 97 [degF] Dr. Tonio Fajardo Work Phone: [facility] 06-21-2022 13:57-0400 Body weight 83.[address] Tonio Fajardo Work Phone: [facility] 06-21-2022 13:57-0400 Diastolic blood pressure 88 mm[Hg] Dr. Tonio Fajardo Work Phone: [facility] 06-21-2022 13:57-0400 Heart rate 70 /min Dr. Tonio Fajardo Work Phone: [facility] 06-21-2022 13:57-0400 Respiratory rate 18 /min Dr. Tonio Fajardo Work Phone: [facility] 06-21-2022 13:57-0400 SaO2% (BldA) [Mass fraction] 94 % Dr. Tonio Fajardo Work Phone: [facility] 06-21-2022 13:57-0400 Systolic blood pressure 139 mm[Hg] Dr. Tonio Fajardo Work Phone: [facility] 06-14-2022 13:55-0400 Body height 167.[address] Tonio Fajardo Work Phone: [facility] Work Phone: 06-14-2022 13:53-0400 Body mass index (BMI) [Ratio] 29.5 kg/m2 Dr. Tonio Fajardo Work Phone: [facility] 06-14-2022 13:53-0400 Body temperature 97 [degF] Dr. Tonio Fajardo Work Phone: [facility] 06-14-2022 13:53-0400 Body weight 83.[address] Tonio Fajardo Work Phone: [facility] 06-14-2022 13:53-0400 Diastolic blood pressure 61 mm[Hg] Dr. Tonio Fajardo Work Phone: [facility] 06-14-2022 13:53-0400 Heart rate 66 /min Dr. Tonio Fajardo Work Phone: [facility] 06-14-2022 13:53-0400 Respiratory rate 16 /min Dr. Tonio Fajardo Work Phone: [facility] 06-14-2022 13:53-0400 SaO2% (BldA) [Mass fraction] 94 % Dr. Tonio Fajardo Work Phone: [facility] 06-14-2022 13:53-0400 Systolic blood pressure 137 mm[Hg] Dr. Tonio Fajardo Work Phone: [facility] 06-12-2022 10:32-0400 Body temperature 97.3 [degF] Dr. Tonio Fajardo Work Phone: [facility] 06-12-2022 10:32-0400 Diastolic blood pressure 63 mm[Hg] Dr. Tonio Fajardo Work Phone: [facility] 06-12-2022 10:32-0400 Heart rate 59 /min Dr. Tonio Fajardo Work Phone: [facility] 06-12-2022 10:32-0400 Respiratory rate 18 /min Dr. Tonio Fajardo Work Phone: [facility] 06-12-2022 10:32-0400 Systolic blood pressure 149 mm[Hg] Dr. Tonio Fajardo Work Phone: [facility] 05-30-2022 14:08-0400 Body height 167.[address] Tonio Fajardo Work Phone: [facility] Work Phone: 05-30-2022 14:05-0400 Body mass index (BMI) [Ratio] 29.7 kg/m2 Dr. Tonio Fajardo Work Phone: [facility] 05-30-2022 14:05-0400 Body temperature 97 [degF] Dr. Tonio Fajardo Work Phone: [facility] 05-30-2022 14:05-0400 Body weight 83.[address] Tonio Fajardo Work Phone: [facility] 05-30-2022 14:05-0400 Diastolic blood pressure 64 mm[Hg] Dr. Tonio Fajardo Work Phone: [facility] 05-30-2022 14:05-0400 Heart rate 65 /min Dr. Tonio Fajardo Work Phone: [facility] 05-30-2022 14:05-0400 Respiratory rate 18 /min Dr. Tonio Fajardo Work Phone: [facility] 05-30-2022 14:05-0400 SaO2% (BldA) [Mass fraction] 95 % Dr. Tonio Fajardo Work Phone: [facility] 05-30-2022 14:05-0400 Systolic blood pressure 145 mm[Hg] Dr. Tonio Fajardo Work Phone: [facility] 05-29-2022 14:48-0400 Body temperature 97.6 [degF] Dr. Tonio Fajardo Work Phone: [facility] Work Phone: 05-29-2022 14:48-0400 Diastolic blood pressure 51 mm[Hg] Dr. Tonio Fajardo Work Phone: [facility] Work Phone: 05-29-2022 14:48-0400 Heart rate 75 /min Dr. Tonio Fajardo Work Phone: [facility] Work Phone: 05-29-2022 14:48-0400 Systolic blood pressure 158 mm[Hg] Dr. Tonio Fajardo Work Phone: [facility] Work Phone: 05-24-2022 14:31-0400 Body height 167.[address] Tonio Fajardo Work Phone: [facility] Work Phone: 05-24-2022 14:22-0400 Body mass index (BMI) [Ratio] 29.7 kg/m2 Dr. Tonio Fajardo Work Phone: [facility] 05-24-2022 14:22-0400 Body temperature 98.2 [degF] Dr. Tonio Fajardo Work Phone: [facility] 05-24-2022 14:22-0400 Body weight 83.[address] Tonio Fajardo Work Phone: [facility] 05-24-2022 14:22-0400 Diastolic blood pressure 74 mm[Hg] Dr. Tonio Fajardo Work Phone: [facility] 05-24-2022 14:22-0400 Heart rate 74 /min Dr. Tonio Fajardo Work Phone: [facility] 05-24-2022 14:22-0400 Respiratory rate 15 /min Dr. Tonio Fajardo Work Phone: [facility] 05-24-2022 14:22-0400 SaO2% (BldA) [Mass fraction] 96 % Dr. Tonio Fajardo Work Phone: [facility] 05-24-2022 14:22-0400 Systolic blood pressure 135 mm[Hg] Dr. Tonio Fajardo Work Phone: [facility] 05-24-2022 13:26-0400 Body temperature 96.7 [degF] Dr. Tonio Fajardo Work Phone: [facility] Work Phone: 05-24-2022 13:26-0400 Diastolic blood pressure 57 mm[Hg] Dr. Tonio Fajardo Work Phone: [facility] Work Phone: 05-24-2022 13:26-0400 Heart rate 81 /min Dr. Tonio Fajardo Work Phone: [facility] Work Phone: 05-24-2022 13:26-0400 Respiratory rate 18 /min Dr. Toino Fajardo Work Phone: [facility] Work Phone: 05-24-2022 13:26-0400 Systolic blood pressure 141 mm[Hg] Dr. Tonio Fajardo Work Phone: [facility] Work Phone: 05-17-2022 15:07-0400 Body temperature 97.5 [degF] Dr. Tonio Fajardo Work Phone: [facility] Work Phone: 05-17-2022 15:07-0400 Diastolic blood pressure 63 mm[Hg] Dr. Tonio Fajardo Work Phone: [facility] Work Phone: 05-17-2022 15:07-0400 Heart rate 71 /min Dr. Tonio Fajardo Work Phone: [facility] Work Phone: 05-17-2022 15:07-0400 Respiratory rate 20 /min Dr. Tonio Fajardo Work Phone: [facility] Work Phone: 05-17-2022 15:07-0400 Systolic blood pressure 142 mm[Hg] Dr. oTnio Fajardo Work Phone: [facility] Work Phone: 05-11-2022 16:01-0400 Body height 167.[address] Tonio Fajardo Work Phone: [facility] Work Phone: 05-11-2022 15:54-0400 Body mass index (BMI) [Ratio] 29.4 kg/m2 Dr. Tonio Fajardo Work Phone: [facility] Work Phone: 05-11-2022 15:54-0400 Body temperature 98.4 [degF] Dr. Tonio Fajardo Work Phone: [facility] Work Phone: 05-11-2022 15:54-0400 Body weight 82.[address] Tonio Fajardo Work Phone: [facility] Work Phone: 05-11-2022 15:54-0400 Diastolic blood pressure 67 mm[Hg] Dr. Tonio Fajardo Work Phone: [facility] Work Phone: 05-11-2022 15:54-0400 Heart rate 63 /min Dr. Tonio Fajardo Work Phone: [facility] Work Phone: 05-11-2022 15:54-0400 Respiratory rate 16 /min Dr. Tonio Fajardo Work Phone: [facility] Work Phone: 05-11-2022 15:54-0400 SaO2% (BldA) [Mass fraction] 96 % Dr. Tonio Fajardo Work Phone: [facility] Work Phone: 05-11-2022 15:54-0400 Systolic blood pressure 100 mm[Hg] Dr. Tonio Fajardo Work Phone: [facility] Work Phone: 05-11-2022 08:32-0400 Body mass index (BMI) [Ratio] 29.4 kg/m2 Dr. Tonio Fajardo Work Phone: [facility] Work Phone: 05-11-2022 08:32-0400 Body temperature 97.2 [degF] Dr. Tonio Fajardo Work Phone: [facility] Work Phone: 05-11-2022 08:32-0400 Body weight 82.[address] Tonio Fajardo Work Phone: [facility] Work Phone: 05-11-2022 08:32-0400 Diastolic blood pressure 62 mm[Hg] Dr. Tonio Fajardo Work Phone: [facility] Work Phone: 05-11-2022 08:32-0400 Heart rate 73 /min Dr. Tonio Fajardo Work Phone: [facility] Work Phone: 05-11-2022 08:32-0400 Respiratory rate 20 /min Dr. Tonio Fajardo Work Phone: [facility] Work Phone: 05-11-2022 08:32-0400 SaO2% (BldA) [Mass fraction] 96 % Dr. Tonio Fajardo Work Phone: [facility] Work Phone: 05-11-2022 08:32-0400 Systolic blood pressure 145 mm[Hg] Dr. Tonio Fajardo Work Phone: [facility] Work Phone: 04-28-2022 11:40-0400 Body temperature 97.4 [degF] Dr. Tonio Fajardo Work Phone: [facility] Work Phone: 04-28-2022 11:40-0400 Diastolic blood pressure 46 mm[Hg] Dr. Tonio Fajardo Work Phone: [facility] Work Phone: 04-28-2022 11:40-0400 Heart rate 66 /min Dr. Tonio Fajardo Work Phone: [facility] Work Phone: 04-28-2022 11:40-0400 Respiratory rate 20 /min Dr. Tonio Fajardo Work Phone: [facility] Work Phone: 04-28-2022 11:40-0400 SaO2% (BldA) [Mass fraction] 96 % Dr. Tonio Fajardo Work Phone: [facility] Work Phone: 04-28-2022 11:40-0400 Systolic blood pressure 138 mm[Hg] Dr. Tonio Fajardo Work Phone: [facility] Work Phone: 04-28-2022 09:44-0400 Inhaled oxygen flow rate 2 L/min Dr. Tonio Fajardo Work Phone: [facility] Work Phone: 04-28-2022 08:15-0400 Body height 167.[address] Tonio Fajardo Work Phone: [facility] Work Phone: 04-28-2022 08:15-0400 Body mass index (BMI) [Ratio] 28 kg/m2 Dr. Tonio Fajardo Work Phone: [facility] Work Phone: 04-28-2022 08:15-0400 Body weight 78.[address] Tonio Fajardo Work Phone: [facility] Work Phone: 04-26-2022 13:47-0400 Body temperature 97 [degF] Dr. Tonio Fajardo Work Phone: [facility] Work Phone: 04-26-2022 13:47-0400 Diastolic blood pressure 33 mm[Hg] Dr. Tonio Fajardo Work Phone: [facility] Work Phone: 04-26-2022 13:47-0400 Heart rate 80 /min Dr. Tonio Fajardo Work Phone: [facility] Work Phone: 04-26-2022 13:47-0400 Respiratory rate 18 /min Dr. Tonio Fajardo Work Phone: [facility] Work Phone: 04-26-2022 13:47-0400 Systolic blood pressure 118 mm[Hg] Dr. Tonio Fajardo Work Phone: [facility] Work Phone: 04-14-2022 11:11-0400 Body height 167.[address] Tonio Fajardo Work Phone: [facility] Work Phone: 04-14-2022 11:11-0400 Body mass index (BMI) [Ratio] 30.7 kg/m2 Dr. Tonio Fajardo Work Phone: [facility] Work Phone: 04-14-2022 11:11-0400 Body temperature 95.8 [degF] Dr. Tonio Fajardo Work Phone: [facility] Work Phone: 04-14-2022 11:11-0400 Body weight 86.[address] Tonio Fajardo Work Phone: [facility] Work Phone: 04-14-2022 11:11-0400 Diastolic blood pressure 68 mm[Hg] Dr. Tonio Fajardo Work Phone: [facility] Work Phone: 04-14-2022 11:11-0400 Heart rate 34 /min Dr. Tonio Fajardo Work Phone: [facility] Work Phone: 04-14-2022 11:11-0400 Respiratory rate 16 /min Dr. Tonio Fajardo Work Phone: [facility] Work Phone: 04-14-2022 11:11-0400 SaO2% (BldA) [Mass fraction] 91 % Dr. Tonio Fajardo Work Phone: [facility] Work Phone: 04-14-2022 11:11-0400 Systolic blood pressure 163 mm[Hg] Dr. Tonio Fajardo Work Phone: [facility] Work Phone: 04-14-2022 10:36-0400 Body temperature 96.7 [degF] Dr. Tonio Fajardo Work Phone: [facility] Work Phone: 04-14-2022 10:36-0400 Diastolic blood pressure 71 mm[Hg] Dr. Tonio Fajardo Work Phone: [facility] Work Phone: 04-14-2022 10:36-0400 Heart rate 64 /min Dr. Tonio Fajardo Work Phone: [facility] Work Phone: 04-14-2022 10:36-0400 Respiratory rate 23 /min Dr. Tonio Fajardo Work Phone: [facility] Work Phone: 04-14-2022 10:36-0400 SaO2% (BldA) [Mass fraction] 94 % Dr. Tonio Fajardo Work Phone: [facility] Work Phone: 04-14-2022 10:36-0400 Systolic blood pressure 153 mm[Hg] Dr. Tonio Fajardo Work Phone: [facility] Work Phone: 04-14-2022 08:24-0400 Body mass index (BMI) [Ratio] 30.2 kg/m2 Dr. Tonio Fajardo Work Phone: [facility] Work Phone: 04-14-2022 08:24-0400 Body weight 85.[address] Tonio Fajardo Work Phone: [facility] Work Phone: 04-12-2022 13:50-0400 Body temperature 97.8 [degF] Dr. Tonio Fajardo Work Phone: [facility] Work Phone: 04-12-2022 13:50-0400 Diastolic blood pressure 74 mm[Hg] Dr. Tonio Fajardo Work Phone: [facility] Work Phone: 04-12-2022 13:50-0400 Heart rate 69 /min Dr. Tonio Fajardo Work Phone: [facility] Work Phone: 04-12-2022 13:50-0400 Respiratory rate 18 /min Dr. Tonio Fajardo Work Phone: [facility] Work Phone: 04-12-2022 13:50-0400 Systolic blood pressure 107 mm[Hg] Dr. Tonio Fajardo Work Phone: [facility] Work Phone: 04-05-2022 13:34-0400 Body temperature 101.61 [degF] Jessie Rodriguez APRN.CNP Work Phone: [facility] 04-05-2022 13:34-0400 Body weight 87.09 kg Jessie Praisler-Wood [employer] MAINTENANCE INSPECTOR.DIRECTOR [employer]AGE Work Phone: [facility] 04-05-2022 13:34-0400 Diastolic blood pressure 76 mm[Hg] Jessie Praisler-[employer] CAR[employer]ER MAINTENANCE INSPECTOR.DIRECTOR [employer]AGE Work Phone: [facility] 04-05-2022 13:34-0400 Heart rate 76 /min Jessie Praisler-[employer]ER MAINTENANCE INSPECTOR.DIRECTOR [employer]ANG[employer]AGE Work Phone: [facility] 04-05-2022 13:34-0400 Respiratory rate 16 /min Jessie Praisler-[employer]ER MAINTENANCE INSPECTOR.DIRECTOR [employer]ANG[employer]AGE Work Phone: [facility] 04-05-2022 13:34-0400 SaO2% (BldA) [Mass fraction] 94 % Jessie Praisler-Wood [employer] CARRIER MAINTENANCE INSPECTOR.DIRECTOR [employer]ANG[employer]AGE Work Phone: [facility] 04-05-2022 13:34-0400 Systolic blood pressure 122 mm[Hg] Jessie Praisler-Wood [employer] CARRIER MAINTENANCE INSPECTOR.DIRECTOR [employer]ANG[employer]AGE Work Phone: [facility] 03-01-2022 13:16-0400 Body temperature 97.6 [degF] Dr. Tonio Fajardo Work Phone: [facility] Work Phone: 03-01-2022 13:16-0400 Diastolic blood pressure 73 mm[Hg] Dr. Tonio Fajardo Work Phone: [facility] Work Phone: 03-01-2022 13:16-0400 Heart rate 70 /min Dr. Tonio Fajardo Work Phone: [facility] Work Phone: 03-01-2022 13:16-0400 Respiratory rate 18 /min Dr. Tonio Fajardo Work Phone: [facility] Work Phone: 03-01-2022 13:16-0400 Systolic blood pressure 141 mm[Hg] Dr. Tonio Fajardo Work Phone: [facility] Work Phone: 02-08-2022 13:06-0400 Body temperature 98.1 [degF] Dr. Tonio Fajardo Work Phone: [facility] Work Phone: 02-08-2022 13:06-0400 Diastolic blood pressure 63 mm[Hg] Dr. Tonio Fajardo Work Phone: [facility] Work Phone: 02-08-2022 13:06-0400 Heart rate 83 /min Dr. Tonio Fajardo Work Phone: [facility] Work Phone: 02-08-2022 13:06-0400 Respiratory rate 20 /min Dr. Tonio Fajardo Work Phone: [facility] Work Phone: 02-08-2022 13:06-0400 Systolic blood pressure 131 mm[Hg] Dr. Tonio Fajardo Work Phone: [facility] Work Phone: 01-17-2022 10:56-0400 Body height 167.[address] Tonio Fajardo Work Phone: [facility] Work Phone: 01-17-2022 10:56-0400 Body mass index (BMI) [Ratio] 31.9 kg/m2 Dr. Tonio Fajardo Work Phone: [facility] Work Phone: 01-17-2022 10:56-0400 Body weight 89.[address] Tonio Fajardo Work Phone: [facility] Work Phone: 01-17-2022 10:56-0400 Diastolic blood pressure 44 mm[Hg] Dr. Tonio Fajardo Work Phone: [facility] Work Phone: 01-17-2022 10:56-0400 Heart rate 64 /min Dr. Tonio Fajardo Work Phone: [facility] Work Phone: 01-17-2022 10:56-0400 Respiratory rate 22 /min Dr. Tonio Fajardo Work Phone: [facility] Work Phone: 01-17-2022 10:56-0400 SaO2% (BldA) [Mass fraction] 95 % Dr. Tonio Fajardo Work Phone: [facility] Work Phone: 01-17-2022 10:56-0400 Systolic blood pressure 101 mm[Hg] Dr. Tonio Fajardo Work Phone: [facility] Work Phone: 01-17-2022 10:56-0400 Body height 167.[address] Tonio Fajardo Work Phone: [facility] Work Phone: 01-17-2022 10:56-0400 Body mass index (BMI) [Ratio] 31.9 kg/m2 Dr. Tonio Fajardo Work Phone: [facility] Work Phone: 01-17-2022 10:56-0400 Body weight 89.[address] Tonio Fajardo Work Phone: [facility] Work Phone: 01-17-2022 10:56-0400 Diastolic blood pressure 44 mm[Hg] Dr. Tonio Fajardo Work Phone: [facility] Work Phone: 01-17-2022 10:56-0400 Heart rate 64 /min Dr. Tonio Fajardo Work Phone: [facility] Work Phone: 01-17-2022 10:56-0400 Respiratory rate 22 /min Dr. Tonio Fajardo Work Phone: [facility] Work Phone: 01-17-2022 10:56-0400 SaO2% (BldA) [Mass fraction] 95 % Dr. Tonio Fajardo Work Phone: [facility] Work Phone: 01-17-2022 10:56-0400 Systolic blood pressure 101 mm[Hg] Dr. Tonio Fajardo Work Phone: [facility] Work Phone: 01-04-2022 12:59-0400 Body temperature 96.4 [degF] Dr. Tonio Fajardo Work Phone: [facility] Work Phone: 01-04-2022 12:59-0400 Diastolic blood pressure 64 mm[Hg] Dr. Tonio Fajardo Work Phone: [facility] Work Phone: 01-04-2022 12:59-0400 Heart rate 70 /min Dr. Tonio Fajardo Work Phone: [facility] Work Phone: 01-04-2022 12:59-0400 Respiratory rate 16 /min Dr. Tonio Fajardo Work Phone: [facility] Work Phone: 01-04-2022 12:59-0400 Systolic blood pressure 135 mm[Hg] Dr. Tonio Fajardo Work Phone: [facility] Work Phone: 12-21-2021 13:10-0400 Body temperature 97 [degF] [facility] Work Phone: 12-21-2021 13:10-0400 Diastolic blood pressure 62 mm[Hg] [facility] Work Phone: 12-21-2021 13:10-0400 Heart rate 88 /min [facility] Work Phone: 12-21-2021 13:10-0400 Systolic blood pressure 173 mm[Hg] [facility] Work Phone: 12-18-2021 00:38-0400 Respiratory rate 16 /min [facility] Work Phone: 11-29-2021 13:03-0400 Body temperature 97.4 [degF] [facility] Work Phone: 11-29-2021 13:03-0400 Diastolic blood pressure 43 mm[Hg] [facility] Work Phone: 11-29-2021 13:03-0400 Heart rate 69 /min [facility] Work Phone: 11-29-2021 13:03-0400 Respiratory rate 16 /min [facility] Work Phone: 11-29-2021 13:03-0400 Systolic blood pressure 134 mm[Hg] [facility] Work Phone: 11-09-2021 13:07-0400 Body temperature 97 [degF] [facility] Work Phone: 11-09-2021 13:07-0400 Diastolic blood pressure 41 mm[Hg] [facility] Work Phone: 11-09-2021 13:07-0400 Heart rate 73 /min [facility] Work Phone: 11-09-2021 13:07-0400 Respiratory rate 18 /min [facility] Work Phone: 11-09-2021 13:07-0400 Systolic blood pressure 126 mm[Hg] [facility] Work Phone: Encounters Encounter Date Encounter Type Care Provider Facility Start: 04-02-2025 Patient encounter procedure Carmelina Parra -[facility] Start: 04-02-2025 ambulatory Tonio Fajardo Facility: [facility] Start: 03-27-2025 End: 03-27-[address] Tonio Fajardo DO Work Phone: -Pulmonary Services/Neurology Start: 03-27-2025 End: 03-27-2025 Patient encounter procedure Leslie DAMIAN -Pulmonary Services/Neurology Work Phone: Start: 03-27-2025 End: 03-27-2025 ambulatory Tonio Fajardo Facility:[facility] Start: 03-18-2025 End: 03-18-[address] Tonio Fajardo DO Work Phone: -Laboratory [place] [facility] Start: 03-18-2025 End: 03-18-[address] [facility] Start: 03-17-2025 End: 03-17-2025 Patient encounter procedure Leslie Arriaga PA -[facility] Work Phone: Start: 03-17-2025 End: 03-18-[address] Tonio Fajardo DO Work Phone: -[facility] Start: 03-15-2025 End: 03-15-2025 Emergency department patient visit Dr. Tonio Fajardo DO Work Phone: -Emergency Department Work Phone: Start: 03-09-2025 Non-patient / Non-visit Dr. Deric Lantigua MD -[facility] Work Phone: Start: 03-09-2025 Non-patient / Non-visit Dr. Willian Glaser MD -[facility] Start: 03-08-2025 Non-patient / Non-visit Dr. Marjorie castellano MD [facility] Start: 03-07-2025 Non-patient / Non-visit Dr. Deric Lantigua MD -[facility] Work Phone: Start: 03-06-2025 Non-patient / Non-visit Dr. Deric Lantigua MD -[facility] Work Phone: Start: 03-06-2025 Non-patient / Non-visit Dr. Marjorie castellano MD -[facility] Start: 03-05-2025 ambulatory Marjorie Green Facility:[facility] Start: 03-05-2025 Non-patient / Non-visit Dr. Marjorie castellano MD -[facility] Start: 03-05-2025 Non-patient / Non-visit Dr. Deric Lantigua MD -[facility] Work Phone: Start: 03-04-2025 ambulatory [facility] Facility: [facility] Start: 03-04-2025 End: 03-09-2025 Evaluation and management of inpatient Dr. Nicola Lindsey DO -Progressive Care Unit Work Phone: Start: 11-06-[address] Russ Zamora MD -[facility] Start: 11-06-2024 End: 11-06-[address] Russ Zamora MD -[facility] Work Phone: Start: 11-06-2024 End: 11-06-2024 ambulatory [facility] Facility:[facility] Start: 10-30-2024 End: 10-30-[address] Tonio Fajardo DO Work Phone: [facility] Work Phone: Start: 10-30-2024 End: 10-30-[address] Russ Zamora MD -[facility] Work Phone: Start: 10-30-2024 End: 10-30-2024 ambulatory Russ Zamora Facility:[facility] Start: 10-23-2024 End: 10-23-2024 Patient encounter procedure Lorie Mart [employer] -[facility] Work Phone: Start: 10-23-2024 End: 10-23-2024 ambulatory [facility] Facility:[facility] Start: 10-20-2024 End: 10-20-[address] Tonio Fajardo DO Work Phone: [facility] Work Phone: Start: 10-20-2024 End: 10-20-[address] Tonio Fajardo DO -[facility] Start: 10-20-2024 End: 10-20-2024 ambulatory Tonio Fajardo Facility:[facility] Start: 10-17-2024 ambulatory Lorie Mart [employer]OM[employer] ADJUSTER Fac ility:[facility] Start: 10-17-2024 Non-patient / Non-visit Dr. Tyrell zuniga DO -[facility] Start: 10-16-2024 End: 10-16-[address] Tonio Fajardo DO Work Phone: [facility] Work Phone: Start: 10-16-2024 End: 10-16-2024 Patient encounter procedure Lorie Mart [employer]RONOMETER ADJUSTER-C -Pulmonary Services/Neurology Work Phone: Start: 10-16-2024 End: 10-16-2024 ambulatory Lorie Mart NP Facility:[facility] Start: 09-25-2024 End: 09-25-2024 Patient encounter procedure Leslie Arriaga PA -[facility] Work Phone: Start: 09-25-2024 End: 09-25-2024 ambulatory Tonio Fajardo Facility:[facility] Start: 09-25-2024 End: 09-25-2024 ambulatory Leslie DAMIAN Facility:[facility] Start: 07-03-2024 End: 07-03-[address] Joaquim Suárez DPM -Laboratory, Specimen Work Phone: Start: 07-03-2024 End: 07-03-2024 ambulatory Joaquim Suárez Facility:[facility] Start: 06-17-2024 End: 06-17-2024 ambulatory Tonio Fajardo Facility:[facility] Start: 05-05-2024 End: 05-05-2024 ambulatory Tonio Fajardo Facility:[facility] Start: 04-28-2024 End: 04-28-2024 ambulatory Russ [facility] Facility:[facility] Start: 12-24-2023 End: 12-24-[address] Tonio Fajardo Work Phone: [facility] Work Phone: Start: 12-24-2023 End: 12-24-[address] Tonio Fajardo Work Phone: [facility]-Laboratory, Specimen Work Phone: Start: 11-12-2023 End: 11-12-[address] Tonio Fajardo Work Phone: [facility] Work Phone: Start: 11-06-[address] Tonio Fajardo Work Phone: [facility] Start: 10-31-2023 End: 10-31-[address] Tonio Fajardo Work Phone: [facility] Work Phone: Start: 10-18-2023 End: 10-18-[address] Tonio Fajardo Work Phone: [facility] Work Phone: Start: 10-12-2023 End: 10-12-[address] Tonio Fajardo Work Phone: [facility] Work Phone: Start: 10-12-2023 End: 10-12-[address] Tonio Fajardo Work Phone: [facility] Work Phone: Start: 08-29-2023 End: 08-29-[address] Tonio Fajardo Work Phone: [facility] Work Phone: Start: 08-22-2023 Non-patient / Non-visit Dr. Min Fajardo Work Phone: [facility] Start: 08-22-2023 End: 08-22-[address] Tonio Fajardo Work Phone: [facility]-Cardiovascular Services Work Phone: Start: 07-26-2023 End: 07-26-[address] Tonio Fajardo Work Phone: [facility] Work Phone: Start: 07-26-2023 End: 07-26-[address] Tonio Fajardo Work Phone: [facility] Work Phone: Start: 07-25-2023 End: 07-25-[address] Tonio Fajardo Work Phone: [facility]-Pulmonary Medicine [facility] Work Phone: Start: 06-22-2023 End: 06-22-[address] Tonio Fajardo Work Phone: [facility] Work Phone: Start: 06-22-2023 End: 06-22-[address] Tonio Fajardo Work Phone: [facility]-Laboratory, Specimen Work Phone: Start: 06-08-2023 End: 06-08-2023 Admission to same day surgery center Dr. Tonio Fajardo Work Phone: [facility]-Surgical Day Care Start: 06-08-2023 End: 06-08-[address] Tonio Fajardo Work Phone: [facility] Work Phone: Start: 05-02-2023 End: 05-19-[address] Tonio Fajardo Work Phone: [facility]-Wound Healing Center Work Phone: Start: 04-20-2023 Non-patient / Non-visit Dr. Min Fajardo Work Phone: [facility] Start: 04-18-2023 End: 04-19-[address] Tonio Fajardo Work Phone: [facility] Work Phone: Start: 04-18-2023 End: 04-19-[address] Ton[facility]ajardo [facility] Work Phone: Start: 04-17-[address] Tonio Fajardo Work Phone: [facility] Start: 04-17-2023 End: 04-17-[address] Tonio Fajardo Work Phone: [facility] Work Phone: Start: 04-10-2023 End: 04-10-[address] Tonio Fajardo Work Phone: [facility] Work Phone: Start: 04-10-2023 End: 04-10-[address] Tonio Fajardo Work Phone: [facility] Work Phone: Start: 04-02-2023 Non-patient / Non-visit Dr. Min Fajardo Work Phone: [facility] Start: 04-02-[address] Tonio Fajardo Work Phone: [facility] Work Phone: Start: 03-19-2023 Non-patient / Non-visit Dr. Min Fajardo Work Phone: [facility] Start: 03-19-2023 End: 03-19-[address] Tonio Fajardo Work Phone: [facility] Work Phone: Start: 03-19-2023 End: 03-19-[address] Ton[facility] Fajardo [facility] Work Phone: Start: 03-05-2023 Non-patient / Non-visit Dr. Min Fajardo Work Phone: [facility] Start: 02-23-2023 End: 02-23-[address] Tonio Fajardo Work Phone: [facility] Work Phone: Start: 02-19-2023 Non-patient / Non-visit Dr. Min Fajardo Work Phone: [facility] Start: 02-05-2023 Non-patient / Non-visit Dr. Min Fajardo Work Phone: [facility] Start: 02-05-2023 End: 02-16-[address] Tonio Fajardo Work Phone: [facility] Work Phone: Start: 02-05-2023 End: 02-16-[address] Tonio Fajardo [facility] Work Phone: Start: 01-22-2023 Non-patient / Non-visit Dr. Min Fajardo Work Phone: [facility] Start: 01-08-2023 Non-patient / Non-visit Dr. Min Fajardo Work Phone: [facility] Start: 01-08-2023 End: 01-17-[address] Tonio Fajardo Work Phone: [facility] Work Phone: Start: 01-08-2023 End: 01-17-[address] Tonio Fajardo Work Phone: [facility] Start: 12-30-2022 End: 12-31-2022 Emergency department patient visit Dr. Tonio Fajardo Work Phone: [facility]-Emergency Department Start: 12-25-2022 Non-patient / Non-visit Dr. Min Fajardo Work Phone: [facility] Start: 12-25-[address] Tonio Fajardo Work Phone[facility] Start: 12-18-2022 Non-patient / Non-visit Dr. Min Fajardo Work Phone: [facility] Start: 12-12-2022 End: 12-12-[address] Tonio Fajardo Work Phone: [facility]-Pulmonary Medicine [facility] Start: 12-11-2022 Non-patient / Non-visit Dr. Min Fajardo Work Phone: [facility] Start: 12-11-2022 End: 12-17-[address] Tonio Fajardo Work Phone: [facility] Work Phone: Start: 12-11-2022 End: 12-17-[address] Tonio Fajardo Work Phone: [facility] Start: 12-06-2022 Non-patient / Non-visit Dr. Min Fajardo Work Phone: [facility] Start: 11-27-2022 Non-patient / Non-visit Dr. Min Fajardo Work Phone: [facility] Start: 11-20-2022 Non-patient / Non-visit Dr. Min Fajardo Work Phone: [facility] Start: 11-08-2022 Non-patient / Non-visit Dr. Min Fajardo Work Phone: [facility] Start: 11-08-2022 End: 11-17-[address] Tonio Fajardo [facility] Start: 10-30-2022 Non-patient / Non-visit Dr. Min Fajardo Work Phone: [facility] Start: 10-23-2022 Non-patient / Non-visit Dr. Min Fajardo Work Phone: [facility] Start: 10-18-2022 Non-patient / Non-visit Dr. Min Fajardo Work Phone: [facility] Start: 10-16-[address] Tonio Fajardo Work Phone: [facility] Start: 10-16-2022 End: 10-16-[address] Tonio Fajardo Work Phone: [facility] Start: 10-09-2022 Non-patient / Non-visit Dr. Min Fajardo Work Phone: [facility] Start: 10-09-2022 End: 10-09-[address] Tonio Fajardo Work Phone: [facility] Start: 10-09-2022 End: 10-17-[address] Tonio Fajardo Work Phone: [facility] Work Phone: Start: 10-09-2022 End: 10-17-[address] Tonio Fajardo [facility] Start: 10-09-[address] Tonio Fajardo Work Phone: [facility] Start: 10-02-2022 Non-patient / Non-visit Dr. Min Fajardo Work Phone: [facility] Start: 10-02-2022 End: 10-02-[address] Tonio Fajardo Work Phone: [facility] Start: 09-25-2022 Non-patient / Non-visit Dr. Min Fajardo Work Phone: [facility] Start: 09-18-2022 Non-patient / Non-visit Dr. Min Fajardo Work Phone: [facility] Start: 09-18-2022 End: 09-19-[address] Tonio Fajardo Work Phone: [facility] Work Phone: Start: 09-18-2022 End: 09-19-[address] Tonio Fajardo Work Phone: [facility] Start: 08-29-2022 Non-patient / Non-visit Dr. Min Fajardo Work Phone: [facility] Start: 08-15-2022 Non-patient / Non-visit Dr. Min Fajardo Work Phone: [facility] Start: 08-15-2022 End: 08-19-[address] Tonio Fajardo Work Phone: [facility] Work Phone: Start: 08-15-2022 End: 08-19-[address] Tonio Fajardo Work Phone: [facility] Start: 08-08-2022 End: 08-08-[address] Tonio Fajardo Work Phone: [facility] Start: 08-01-2022 Non-patient / Non-visit Dr. Min Fajardo Work Phone: [facility] Start: 07-28-2022 Telephone encounter Jessie Parra [facility] Work Phone: [facility] Comment on above: Patient Update Start: 07-19-2022 End: 07-19-[address] Tonio Fajardo Work Phone: [facility] Start: 07-18-2022 Non-patient / Non-visit Dr. Min Fajardo Work Phone: [facility] Start: 07-18-2022 End: 07-19-[address] Tonio Fajardo Work Phone: [facility] Work Phone: Start: 07-18-2022 End: 07-19-[address] Tonio Fajardo [facility] Start: 07-17-2022 End: 07-17-[address] Tonio Fajardo Work Phone: [facility] Start: 07-09-[address] Tonio Fajardo Work Phone: [facility]-Radiation Oncology Start: 07-09-2022 Non-patient / Non-visit Dr. Min Fajardo Work Phone: [facility] Start: 07-05-2022 End: 07-05-[address] Tonio Fajardo Work Phone: [facility] Start: 06-28-2022 End: 06-28-[address] Tonio Fajardo Work Phone: [facility] Start: 06-26-2022 Non-patient / Non-visit Dr. Min Fajardo Work Phone: [facility] Start: 06-21-2022 End: 06-21-[address] Tonio Fajardo Work Phone: [facility] Start: 06-19-[address] Tonio Fajardo [facility] Start: 06-14-2022 End: 06-14-[address] Tonio Fajardo Work Phone: [facility] Start: 06-12-2022 Non-patient / Non-visit Dr. Min Fajardo Work Phone: [facility] Start: 06-12-2022 End: 06-19-[address] Tonio Fajardo Work Phone: [facility] Work Phone: Start: 06-12-2022 End: 06-19-[address] Tonio Fajardo [facility] Start: 06-06-2022 Non-patient / Non-visit Dr. Min Fajardo Work Phone: [facility] Start: 06-02-2022 Non-patient / Non-visit Dr. Min Fajardo Work Phone: [facility] Start: 06-02-2022 End: 06-02-[address] Tonio Fajardo Work Phone: [facility] Work Phone: Start: 06-02-2022 End: 06-02-[address] Tonio Fajardo Work Phone: [facility]-Pulmonary Services/Neurology Start: 06-01-2022 Non-patient / Non-visit Dr. Min Fajardo Work Phone: [facility] Start: 06-01-[address] Tonio Fajardo [facility] Start: 05-30-[address] Tonio Fajardo Work Phone: [facility] Start: 05-30-2022 End: 05-30-[address] Tonio Fajardo Work Phone: [facility] Start: 05-29-2022 Non-patient / Non-visit Dr. Min Fajardo Work Phone: [facility] Start: 05-29-[address] Tonio Fajardo [facility] Start: 05-24-2022 End: 05-24-[address] Tonio Fajardo Work Phone: [facility] Start: 05-24-2022 Non-patient / Non-visit Dr. Min Fajardo Work Phone: [facility] Start: 05-24-[address] Tonio Fajardo Work Phone: [facility] Start: 05-22-2022 End: 05-22-[address] Tonio Fajardo Work Phone: [facility] Work Phone: Start: 05-22-2022 End: 05-22-[address] Tonio Fajardo Work Phone: [facility] Start: 05-17-2022 Non-patient / Non-visit Dr. Min Fajardo Work Phone: [facility] Start: 05-17-2022 End: 05-19-[address] Tonio Fajardo Work Phone: [facility] Work Phone: Start: 05-17-2022 End: 05-19-[address] Tonio Fajardo [facility] Start: 05-17-[address] Tonio Fajardo Work Phone: [facility] Start: 05-11-2022 End: 05-11-[address] Tonio Fajardo Work Phone: [facility] Start: 05-11-2022 End: 05-11-[address] Ton[facility] Fajardo [facility] Start: 04-28-2022 Non-patient / Non-visit Dr. Min Fajardo Work Phone: [facility] Start: 04-28-2022 End: 04-28-[address] Tonio Fajardo Work Phone: [facility] Work Phone: Start: 04-28-2022 End: 04-28-[address] Tonio Fajardo Work Phone: [facility] Start: 04-26-[address] Tonio Fajardo [facility] Start: 04-14-2022 End: 04-14-[address] Tonio Fajardo Work Phone: [facility] Work Phone: Start: 04-14-2022 End: 04-14-[address] Tonio Fajardo Work Phone: [facility]-Laboratory, OP Pavilion Start: 04-14-2022 End: 04-14-2022 Emergency department patient visit Dr. Tonio Fajardo Work Phone: [facility]-Emergency Department Start: 04-12-2022 End: 04-12-[address] Tonio Fajardo Work Phone: [facility] Work Phone: Start: 04-12-2022 End: 04-12-[address] Tonio Fajardo Work Phone: [facility] Start: 04-12-2022 End: 04-19-[address] Tonio Fajardo Work Phone: [facility] Work Phone: Start: 04-12-2022 End: 04-19-[address] Tonio Fajardo [facility] Start: 04-12-[address] Tonio Fajardo Work Phone[facility] [place] Start: 04-06-2022 Telephone encounter Derek Rivera MD Work Phone: [facility] Comment on above: Results (COVID+) Start: 04-05-2022 End: 04-05-2022 ambulatory TONIO FAJARDO Facility:[facility] Start: 04-05-2022 Telephone encounter Jessie Parra APRN.DIRECTOR SPEECH LANGUAGE Work Phone: [facility] Comment on above: Results Start: 04-05-2022 End: 04-05-2022 Subsequent hospital visit by physician [facility] Work Phone: Radiology Comment on above: Acute cough [R05.1] Start: 04-05-2022 End: 04-05-2022 Patient encounter procedure Jessie Rodriguez APRN.DIRECTOR SPEECH LANGUAGE Work Phone: [facility] Comment on above: Burning with urinati on (Primary Dx); Acute cough; Suspected COVID-19 virus infection Start: 03-01-2022 End: 03-19-[address] Tonio Fajardo Work Phone: [facility] Start: 02-08-2022 End: 02-16-[address] Tonio Fajardo Work Phone: [facility] Start: 01-17-2022 End: 01-17-[address] Tonio Fajardo Work Phone: [facility] Start: 01-04-2022 End: 01-17-[address] Tonio Fajardo Work Phone: [facility] Start: 12-21-2021 Registered Recurring [facility] Start: 12-19-2021 End: 12-19-2021 [facility] Start: 11-29-2021 End: 12-17-2021 Nutrition therapy [facility] Start: 11-09-2021 End: 11-17-2021 Nutrition therapy [facility] Procedures Date Procedure Procedure Detail Performing Clinician Start: 03-09-[address] Tonio Fajardo DO Work Phone: Start: 03-06-[address] Tonio Fajardo DO Work Phone: Start: 03-06-2025 Serum inorganic phos phate measurement Dr. Tonio Fajardo DO Work Phone: Start: 03-05-2025 Plain chest X-ray Dr. Nancy Fajardo DO Work Phone: Start: 03-04-2025 Urnls dip stick/tabl et reagent [...] Work Phone: Start: 07-03-2024 Gram stain microscopy D amy Fajardo DO Work Phone: Start: 07-03-2024 Microbial culture, routine Dr. Tonio Fajardo DO Work Phone: Start: 07-03-[address] Min Fajardo DO Work Phone: Start: 05-05-2024 Measurement of renal function Dr. Tonio Fajardo DO Work Phone: Comment on above: GFR Calc Start: 01-28-[address] Tonio davis DO Work Phone: Comment on above: Sent directly to [facility] per ordering physician. Start: 12-24-2023 Investigation of transfusion reaction Dr. Tonio Fajardo Work Phone: Start: 12-24-2023 Microbial culture, routine Dr. Tonio Fajardo Work Phone: Start: 11-06-2023 PET study for locali zation of tumor Dr. Tonio Fajardo Work Phone: Start: 11-06-2023 Albumin/Globulin ratio Dr. Tonio Fajardo DO Work Phone: Start: 11-06-[address]23 Imm[address] reticulocyt e fraction Dr. Tonio Fajardo DO Work Phone: Start: 03-19-[address] Tonio Fajardo DO [...] exam ches t 2 views Jessie Rodriguez [employer]ER MAINTENANCE INSPECTOR.DIRECTOR SPE[employer]CH LANGUAGE Work Phone: Start: 04-05-2022 Urnls dip stick/tabl et rgnt auto w/o microscopy Onelia Cuevas [employer] CARRIER MAINTENANCE INSPECTOR.DIRECTOR SPEECH LANGUAGE Work Phone: Start: 11-02-2021 X-ray of both [...] culture, routine D amy Fajardo Work Phone: Urine culture Dr. Tonio robertson Work Phone: Urine culture Dr. Tonio robertson Work Phone: Plan of Treatment Date Care Activity Detail Author Start: 03-27-[address] [facility] Start: 03-15-2025 [facility] Start: 03-15-2025 Control nasal hemorr min anterior simple CONTROL OF NOSEBLEED [facility] Start: 03-09-2025 Referral to service [facility] Start: 03-09-2025 Patient discharge [facility] Start: 03-08-2025 Application of elast ic bandage [facility] Start: 03-07-2025 Introduction of urin dakota catheter [facility] Start: 03-06-2025 Inhalation therapy procedure [facility] Start: 03-05-2025 [facility] Start: 03-05-2025 Care planning and pr oblem solving actions [facility] Start: 03-05-2025 Chest 1 View (Portable) Chest 1 View (Portable) [facility] Start: 03-05-2025 XR Chest Single view [facility] Start: 03-05-2025 Care planning and pr oblem solving actions [facility] Start: 03-04-2025 Following clinical p athway protocol [facility] Start: 03-04-2025 Assessment of risk o f venous thromboembolism [facility] Start: 03-04-2025 Care regimes management [facility] Start: 03-04-2025 Catheterization of vein [facility] Start: 03-04-2025 Insertion of cathete r into peripheral vein [facility] Start: 03-04-2025 Measuring intake and output [facility] Start: 03-04-2025 Notification of physician [facility] Start: 03-04-2025 Oxygen therapy [facility] Start: 03-04-2025 Providing care accor ding to standard [facility] Start: 03-04-2025 Provision of activit y privileges [facility] Start: 03-04-2025 Referral to business management manager [facility] Start: 03-04-2025 Referral to occupati onal therapist [facility] Start: 03-04-2025 Referral to service [facility] Start: 03-04-2025 End: 03-04-[address] [facility] Start: 03-04-2025 Hospital admission, emergency, from emergency room, medical nature [facility] Start: 03-04-2025 Verification routine [facility] Start: 03-04-2025 Admission procedure [facility] Start: 03-04-2025 Thyroid stimulating hormone measurement [facility] Start: 03-04-2025 [facility] Start: 03-04-2025 Patient referral to dietitian [facility] Start: 04-20-2024 Covid-19 Vaccine ( season) Covid-19 Vaccine ( season) [facility] Start: 04-20-2024 Influenza vaccination Influenza Vacc ine (#1) [facility] Start: 08-20-2023 Advance Directive Discussion Advance Directive Discussion [facility] Start: 06-22-2023 [facility] Start: 06-08-2023 Patient discharge [facility] Start: 06-08-2023 Anes open proc bones lower leg/ankle/foot nos ANESTH LOWER LEG BONE SURG [facility] Start: 06-08-2023 Osteot w/wo lngth shrt/corrj 1st metar INCISION OF METATARSAL [facility] Start: 06-08-2023 Prep site f/s/n/h/f/ g/m/d gt 1st 100 sq cm/1pct WOUND PREP F/N/HF/G [facility] Start: 06-08-2023 Sub grft f/s/n/h/f/g /m/d <100sq cm 1st 25 sq cm SKIN SUB GRAFT FACE/NK/HF/G [facility] Start: 06-08-2023 Fluoroscopic guidance O.R. Fluoro fo r C-Arm [facility] Start: 06-08-2023 Radiography of foot Foot 2 Views [facility] Start: 12-30-2022 [facility] Start: 12-30-2022 End: 12-30-2022 Blood culture [facility] Start: 12-30-2022 End: 12-30-[address] [facility] Start: 10-16-2022 CBC W Auto Different ial panel - Blood [facility] Start: 10-16-2022 Lactate dehydrogenas e measurement [facility] Start: 10-16-2022 End: 10-16-[address] [facility] Start: 07-18-2022 [facility] Work Phone: Start: 05-18-2022 [facility] Work Phone: Start: 05-11-2022 Patient referral [facility] Work Phone: Start: 04-28-2022 CORE NDL BX LNG/MED PERQ CORE NDL BX LNG/MED PERQ [facility] Work Phone: Start: 04-28-2022 Following clinical p athway protocol [facility] Work Phone: Start: 04-28-2022 Catheterization of vein [facility] Work Phone: Start: 04-28-2022 Oxygen therapy [facility] Work Phone: Start: 04-28-2022 Patient discharge [facility] Work Phone: Start: 04-28-2022 Vital signs measurements [facility] Work Phone: Start: 04-20-2022 Influenza vaccination INFLUENZA (#1) [facility] Start: 04-05-2022 End: 04-19-2022 Influenza virus A and B RNA and SARS-CoV-2 (COVID-19) N gene panel - Respiratory specimen by BRYAN with probe detection [facility] Work Phone: Comment on above: Expected: 04/05/2022 , Expires: 04/19/2022 Start: 08-20-2021 ADVANCE DIRECTIVE DISCUSSION ADVANCE DIRECTIVE DISCUSSION [facility] Start: 08-20-2021 DEPRESSION ASSESSMENT DEPRESSION ASS ESSMENT [facility] Start: 05-04-2021 COVID-19 VACCINE (3 - Booster for Moderna series) COVID-19 VACCINE (3 - Booster for Moderna series) [facility] Start: 01-27-2021 COVID-19 VACCINE (3 - Booster for Moderna series) COVID-19 VACCINE (3 - Booster for Moderna series) [facility] Start: 01-15-2020 RSV Vaccine (1 - 1-d ose 75+ series) RSV Vaccine (1 - 1-dose 75+ series) [facility] Start: 12-01-2018 [facility]ABET[facility]CREEN [facility] Start: 12-01-2018 Diabetes Screening Diabetes Screenin g [facility] Start: 2010 Pneumococcal Vaccine : 65+ (1 of 1 - PCV) Pneumococcal Vaccine: 65+ (1 of 1 - PCV) [facility] Start: 2010 PNEUMOCOCCAL: 65+ (1 - PCV) PNEUMOCOCCAL: 65+ (1 - PCV) [facility] Start: 1995 SHINGRIX VACCINE (1 of 2) HEIN GRIX VACCINE (1 of 2) [facility] Start: 01-15-1964 Urine microalbumin profile [facility] Start: 1963 Anxiety Screening Anxiety Screening [facility] Start: 1963 Depression Screening Depression Scre ening [facility] Start: 1963 HEPATITIS C SCREENING HEPATITIS C SC REENING [facility] Start: 1957 Adult depression scr eening assessment [facility] 24 Hour ECG [facility] Alanine aminotransfe rase [Enzymatic activity/volume] in Serum or Plasma [facility] Albumin [Mass/volume ] in Serum or Plasma [facility] Alkaline phosphatase [Enzymatic activity/volume] in Serum or Plasma [facility] Anaerobic Culture Anaerobic Culture [facility] Work Phone: Anion gap measurement [facility] Aspartate aminotrans ferase [Enzymatic activity/volume] in Serum or Plasma [facility] Bacteria identified in Blood by Culture Blood Culture [facility] Bacteria identified in Unspecified specimen by Anaerobe culture [facility] Work Phone: Bacteria identified in Urine by Culture URINE CULTURE Microbiology Routine Burning with urination 04/05/2022 1:58 PM EDT [facility] Work Phone: Bacteria identified in Urine by Culture Urine Culture [facility] Bilirubin, total measurement [facility] BUN/Creatinine ratio [facility] Calcium [Mass/volume ] in Serum or Plasma [facility] Carbon dioxide, tota l [Moles/volume] in Serum or Plasma [facility] CBC W Auto Different ial panel - Blood [facility] Work Phone: CBC W Auto Different ial panel - Blood [facility] CBC W Auto Different ial panel - Blood [facility] Chloride [Moles/volu me] in Serum or Plasma [facility] Creatinine [Moles/vo lume] in Serum or Plasma [facility] CT Chest and Abdomen W contrast IV [facility] CT Chest W contrast IV [facility] Work Phone: CT Chest W contrast IV [facility] Glucose [Mass/volume ] in Serum or Plasma [facility] Hematocrit [Volume Fraction] of Blood [facility] Hemoglobin [Mass/vol ume] in Blood [facility] Hemoglobin A1c/Hemoglobin.total in Blood [facility] Lactate dehydrogenas e measurement [facility] Lactate dehydrogenas e measurement [facility] LDH [facility] Work Phone: Leukocytes [#/volume ] in Blood [facility] Magnesium measurement [facility] Mean corpuscular hemoglobin concentration determination [facility] Mean corpuscular hemoglobin determination [facility] Measurement of renal function [facility] Microbial culture, routine Wound Culture [facility] Work Phone: MR Brain WO and W co ntrast IV [facility] Work Phone: Natriuretic peptide. B prohormone N-Terminal [Mass/volume] in Serum or Plasma [facility] Neutrophil count [facility] Neutrophil percent differential count [facility] Patient Education [facility] Work Phone: Patient referral [facility] Work Phone: Platelets [#/volume] in Blood [facility] Positron emission tomography with computed tomography [facility] Work Phone: Potassium [Moles/vol ume] in Serum or Plasma [facility] Procedure [facility] PT Unspecified body region [facility] Radiation oncology A ND/OR radiotherapy [facility] Work Phone: Radiation oncology A ND/OR radiotherapy [facility] Red blood cell count [facility] Red cell distributio n width determination [facility] Sodium [Moles/volume ] in Serum or Plasma [facility] Total protein measurement [facility] Urea nitrogen [Mass/volume] in Serum or Plasma [facility] Immunizations Immunization Date Immunization Notes Care Provider Fa [facility] 08-03-2014 influenza virus vaccine, unspecified formulation Xr [facility] Work Phone: [facility] 06-20-2013 Influenza virus vaccine [facility] 06-20-2013 Pneumococcal Vaccine [facility] Work Phone: 06-20-2013 pneumococcal vaccine , unspecified formulation Dr. Tonio Fajardo Work Phone: [facility] Payers Date Payer Category Payer Self-pay [id number] 2009 Medicare [id number] 2009 Medicare MEDICARE MEDICAR E A AND B [id number] 2009-Present [phone] [place] [address] Medicare [id number] 2009 [employer] ( and others) [id number] 2009 Unknown FOR LIFE [id number] 2009-Present [phone] [address] [place] [address] Indemnity [id number] Unknown [id number] 2.16.840.1.293868.3.579. 2.462 Unknown [id number] 2.16.840.1.823540.3.579. 2.462 Unknown [id number] 2.16.840.1.837988.3.579. 2.462 Unknown [id number] 2.16.840.1.869570.3.579. 2.462 Unknown [id number] 2.16.840.1.753361.3.579. 2.462 Unknown [id number] 2.16.840.1.536403.3.579. 2.462 Unknown [id number] 2.16.840.1.516328.3.579. 2.462 Unknown [id number] 2.16.840.1.107064.3.579. 2.462 Unknown [id number] 2.16.840.1.830102.3.579. 2.462 Unknown [id number] 2.16.840.1.899336.3.579. 2.462 Unknown [id number] 2.16.840.1.665225.3.579. 2.462 Unknown [id number] 2.16.840.1.642085.3.579. 2.462 Unknown [id number] 2.16.840.1.675772.3.579. 2.462 Unknown [id number] 2.16.840.1.505262.3.579. 2.462 Unknown [id number] 2.16.840.1.775250.3.579. 2.462 Unknown [id number] 2.16.840.1.531416.3.579. 2.462 Unknown [id number] 2.16.840.1.483850.3.579. 2.462 Unknown [id number] 2.16.840.1.663904.3.579. 2.462 Unknown [id number] 2.16.840.1.478497.3.579. 2.462 Unknown [id number] 2.16.840.1.976955.3.579. 2.462 Unknown [id number] 2.16.840.1.026101.3.579. 2.462 Unknown [id number] 2.16.840.1.736482.3.579. 2.462 Unknown [id number] 2.16.840.1.949330.3.579. 2.462 Unknown [id number] 2.16.840.1.821084.3.579. 2.462 Unknown [id number] 2.16.840.1.065016.3.579. 2.462 Unknown [id number] 2.16.840.1.460498.3.579. 2.462 Unknown [id number] 2.16.840.1.588984.3.579. 2.462 Unknown [id number] 2.16.840.1.388116.3.579. 2.462 Unknown [id number] 2.16.840.1.233858.3.579. 2.462 Social History Date Type Detail Facility Start: 01-06-2021 End: 10-31-2023 Tobacco smoking status NHIS Unknown if ever smoked [facility] Start: 08-27-[address] [facility] Start: 03-18-2014 Spouse/ Signif icant Other [facility] Start: 06-20-2014 Non-smoker [facility] Start: 1945 Sex Assigned At Male [facility] Start: 04-05-2022 End: 03-15-2025 Tobacco smoking status NHIS Ex-smoker [facility] Work Phone: History of tobacco use Current smoker [facility] Work Phone: History of tobacco use Cigarette Smoker [facility] Work Phone: Start: 04-05-2022 Tobacco use and exposure Former smokeless tobacco user [facility] Work Phone: Start: 1945 Sex Assigned At Not on file [facility] Start: 03-26-2022 End: 04-05-2022 Exposure to SARS-CoV-2 (event) Not sure [facility] Work Phone: Start: 04-05-2022 History of Social function [facility] Start: 04-05-2022 Tobacco use panel [facility] Start: 10-30-2024 End: 11-10-2024 Sex Male (finding) [facility] Medical Equipment Procedure Code Equipment Code [...] Assessment Result Facility 03-09-[address] [facility] Work Phone: Mental Status Date Assessment Result Facility 03-09-2025 Cognitive function Voice/Name [facility] Work Phone: 06-08-2023 Cognitive function Voice/Name [facility] Work Phone: 12-30-2022 Cognitive function Level Of Cons ciousness Awake;Alert;Appropriate;Follow s Commands [facility] Work Phone: 04-28-2022 Cognitive function Voice/Name [facility] Work Phone: 04-14-2022 Cognitive function Level Of Cons ciousness Awake;Appropriate;Follows Commands;Drowsy [facility] Work Phone: Clinical Notes 04-05-2022 to 03-15-2025 Note Date & Type Note Facility 03-15-2025 Discharge [address] [facility] 03-15-2025 Discharge summary Note Date/Time March 15, 2025 6:22pm [facility] Medical Records Department [address] [place] [address] Emergency Department Summary 03/15/25 MR#: [id number] Acct: [id number] Name: PEDRO HILLMAN Rep #:[id number] : 1945 80 From: Alex Matias MD PCP: Dr. Tonio Fajardo, DO Status:REG ER Location: ED HPI History of Present Illness Chief Complaint: Nosebleed Detail of Chief Complaint: Epistaxis left Informant: patient, EMS and SNF Onset/Context/Timing Onset: Today and Hours Context: Sudden Onset Timing: Continuous Quality: bleeding noted left side Location: Left septum Current Severity: Gone (Bleeding controlled with nose clamp.) Maximum Severity: Moderate Worsened by: Anticoagulant Relieved by: Pressure Associated Symptoms Associated Symptoms: None Narrative Narrative: Patient is an 80-year-old male. He was recently admitted for congestive heart failure. He is on oxygen at 3 L by nasal cannula. He is on anticoagulant for chronic atrial fibrillation. He denies picking his nose. He denies sneezing orblowing his nose prior to the bleeding. His oxygen is not humidified. He has had no recent nosebleed. Prior similar symptoms: Yes Recent Illness/Hospitalization: Yes (CHF) [facility] Medical History Other persistent atrial fibrillation New onset atrial flutter DIMA Wears hearing aid in both ears Former smoker Coronary artery disease Peripheral vascular occlusive disease BPH (benign prostatic hyperplasia) Chronic kidney disease, stage 3 Atherosclerosis of coronary artery of huslia heart without angina pectoris Hyperlipidemia Lower extremity [...] DAILY diab etes 11/02/21 03/03/25 History (Januvia) Held on 03/09/25. Instructions: Hold for at least 2 weeks until kidney function returns to baseline. Follow with PCP pravastatin 20 mg tablet 20 mg PO DAILY hyperlipidemi a 01/17/22 03/03/25 History cranberry 500 mg capsule 500 mg PO DAILY supplement 1 09/25/22 03/03/25 History docusate sodium 100 mg capsule 100 mg PO DAILY PRN sto ol softn 07/25/23 Unknown History (Colace) albuterol sulfate 90 mcg/actuation 2 puff inhalation Q 4H PRN 10/23/24 Unknown Rx aerosol inhaler shortness of breath or wheez ing #3 device umeclidinium 62.5 mcg-vilanterol 1 inh inhalation QDAY copd #60 ea 10/23/24 03/03/25 Rx 25 mcg/actuation powdr for inhalation (Anoro Ellipta) clopidogrel 75 mg tablet (Plavix) 75 mg PO DAILY atria l fibrillation 11/11/24 03/03/25 Rx #90 tabs apixaban 5 mg tablet (Eliquis) 2.5 mg (1/2 x 5 mg) PO BID 30 days 03/09/25 Unknown Rx #30 tabs diltiazem HCl 120 mg 120 mg PO DAILY 30 days #30 caps 03/09/25 Unknown Rx capsule,extended release 24 hr guaifenesin 1,200 mg tablet, 1,200 mg PO Q12H 7 days # 14 tabs 03/09/25 Unknown Rx extended release 12 hr tamsulosin 0.4 mg capsule 0.4 mg PO DAILY@1730 30 days #30 03/09/25 Unknown Rx caps amoxicillin 500 mg tablet 500 mg PO TID #14 tabs 03/15 Unknown Rx Allergy/AdvReac Type Severity Reaction Status [...] patient quit smokin years ROS ROS ED Constitutional Constitutional ED: Denies chills, fever(s), subjective or sweats Eyes Eyes: Denies blurry vision or change in vision ENT ENT ED: Reports other Details: HPI narrative ; Denies ear pain, rhinorrhea or sore throat Cardiovascular Cardiovascular: Denies palpitations Respiratory/Chest Respiratory/Chest: Denies cough or dyspnea Hematologic/Lymphatic Hematologic/Lymphatic: Reports easy bruising EXAM Physical Exam Const Vital Signs: 03/15/25 16:58 Temperature 97.6 F L Temperature Source Oral Pulse Rate 100 Respiratory Rate 18 Blood Pressure 138/58 H Blood Pressure Mean 84 Pulse Ox 95 Oxygen Delivery Method Nasal Cannula Oxygen Flow Rate (L/min) 3 Positive well nourished and well developed General Appearance ED: well developed and NAD HEENT Reports moist mucous membranes HEENT Narrative: Blood noted left vestibule. Patient has a large clot in the center of Kiesselbach's plexus. There is no other abnormality noted. Negative for trauma or tenderness Eyes PERRL and EOMs intact bilaterally General Eye ED: Negative for pale conjunctiva or scleral icterus Neck no lymphadenopathy and No no JVD Resp normal respiratory effort and clear to auscultation bilaterally Cardio regular rate and no murmurs Rhythm: abnormal rhythm irregularly irregular Neuro oriented x3 and CN's II-XII intact bilaterally Psych mental status grossly normal MDM MDM MDM Narrative Medical decision making narrative: Patient has anterior nosebleed. This is made worse because he is on anticoagulant. According to patient and family has never seen ENT locally. Since he is on anticoagulant recommended treatment is to have a pack placed. Patient had a anterior Merisel pack placed left side without difficulty. He wasobserved for over 30 minutes. He had no bleeding. He will be discharged back to the nursing facility. Discharge Plan Triage Chief Complaint: Nosebleed ED Provider: Alex Matias Dx/Rx/DC Orders Clinical Impression: Acute anterior epistaxis, Anticoagulant long-term use, Antiplatelet or antithrombotic long-term use, Chronic a-fib, Chronic hypoxic respiratory failure Instructions: ED Epistaxis (Adult) Prescriptions: New amoxicillin 500 mg tablet 500 mg PO TID Qty: 14 0RF No Action multivitamin [Daily Multi-Vitamin] Tablet 1 tab PO [...] 100 UNIT/ML solution 30 unit SQ DAILY Januvia 50 mg Tablet 50 mg PO DAILY diltiazem HCl 120 mg Capsule,Extended Release 24hr 120 mg PO DAILY 30 Days Qty: 30 2RF Eliquis 5 mg Tablet 2.5 mg PO BID 30 Days Qty: 30 3RF guaifenesin 1,200 mg tablet extended release 12hr 1,200 mg PO Q12H 7 Days Qty: 14 6RF tamsulosin 0.4 mg Capsule 0.4 mg PO DAILY@1730 30 Days Qty: 30 2RF clopidogrel [Plavix] 75 mg tablet 75 mg PO DAILY Qty: 90 3RF Primary Care Provider: Tonio Fajardo Referrals: Devan Vasquez MD [Med Staff - Active Staff] - 3-5 Days Tonio Fajardo DO [Primary Care Provider] - Activity Restrictions/Additional Instructions: 1. Take amoxicillin as prescribed until gone 2. Call Dr. Devan Ruff's office tomorrow to be seen on or Sunday to have packing removed and reevaluated 3. Hold your next 4 doses of apixaban, Eliquis Print Language: Syriac Disposition Disposition: Home, Self Care What to do if you have Problems For any increased pain, shortness of breath, bleeding, nausea or vomiting, chestpain, or any unexpected problems, contact your Primary Care Provider. Call [facility] ([phone]) or report to the closest Emergency Room. Call 911 if necessary. 03/15/251821 <Electronically signed by Alex Matias MD> Cosigner Signature (if applicable): CC: Dr. Tonio Fajardo DO ~ Signed [facility] Work Phone: 1(776) 330-402707-27-2025 Hospital Discharge instructionsAdditional Instructions 1. Hold the next 4 doses of apixaban, Eliquis. 2. Take amoxicillin as prescribed until gone 3. Contact Dr. Vasquez's office in the morning to be seen later this week to have the pack removed.[facility] Work Phone: 1(622) 797-863607-21-2025 Consult note [facility] Medical Records Department [address] [place] [address] Counseling Note - Pharmacy 03/09/25 0880 MR#: [id number] Acct: [id number] Name: PEDRO HILLMAN Rep #:[id number] : 1945 80 From: Mala Diamond PCP: Dr. Tonio Fajardo DO Status:ADM IN Y Location: [facility] [id number] Pharmacy DC Med Rec Counseling Pharmacy Service has performed discharge medication [...] DAILY@1730 30 days #30 caps 03/09/25 03/09/25 1458 Date _ Mala Amos Signature (if applicable): CC: ~ Signed [facility]07-21-2025 Discharge summary Author Deric Lantigua [facility] Note Date/Time March 09, 2025 12:[address] [facility] Medical Records Department [address] [place] [address] Discharge Summary 03/09/25 1251 MR#: [id number] Acct: [id number] Name: KADYPEDRO Nora Rep #:[id number] : 1945 80 From: Deric Smith PCP: Dr. Tonio Fajardo DO Status:ADM IN Location: [place] [address] Providers Date of Admission: 03/04/25 Date of Discharge: 03/09/25 Primary Care Physician: Dr. Tonio Fajardo DO Consultations 03/04/25 21:21 Consult: Cardiology Routine Consulting Provider: [facility] Reason for Consult: AE CHF, a flutter with RVR and elevated troponin. EMERGENT Consult: No MD Notified: Yes Date Notified: 03/05/25 Time Notified: :17 Method of Notification: Text Method of Consult:: In-Person Reason For Visit: AE CHF, ATRIAL FLUTTER; WITH RVR AND ELEVATED Diagnosis Discharge Diagnosis (1) Other persistent atrial fibrillation: Status: Acute Code(s): I48.19 - Other persistent atrial fibrillation (2) Coronary artery disease: Status: Acute Code(s): I25.10 - Atherosclerotic heart disease of huslia coronary artery without angina pectoris Qualifiers: Coronary Disease-Associated Artery/Lesion type: [place] artery [place] vs. 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 ACS ruled out. Transfer Table Operator is consulted. Repeat proBNP is elevated but it does not reflect treatment response as it should not be ordered for that. Clinically patient is feeling better with improvement in shortness of breath. 2D echo 03/05 reported EF 55%, PASP 42 mmHg with moderate TR, moderate ME and mild PI. 03/06: Furosemide changed to [...] conduction. Later on irregular variable conduction on non profit director 03/06: Discussed with the business management manager. Metoprolol increased to 25 mg twice daily, [...] pressure in the 90s. Discussed with the business management manager. Advised to discontinue to discontinue metoprolol and [...] the CODE STATUS. 03/09: Discussed with the business management manager.Patient heart rate controlled in 70s. Yesterday rate was in 80s. Patient tolerated Cardizem 30 mg every 8 hourly therefore discharged on Cardizem CD 120 mg. I called patient's [id number] and explained the medication. Transfer Table Operator felt probably does not need even pacemaker. [...] at the right lung base. Reading Location: [facility] Echocardiogram 03/04/25 20:08 Interpretation Summary Moderate concentric [...] in right lung base aeration. [facility] Home Medications insulin glargine [...] 03/05/25 14:17 SB (Rec: 03/05/25 14:17 SB [id number]) Nutrition Malnutrition Evidence of Yes Malnutrition Exists [...] (Auto) 72.6 H, Lymph % (Auto) 9.7L, Price % (Auto) 12.1 H, Eos % (Auto) [...] Self Care Charges/Coding Visit Charges Inpatient E&M: 47533 Disch Hosp >30min 03/09/25 1252 <Electronically signed by Deric Lantigua MD> Cosigner Signature (if applicable): CC: Dr. Tonio Fajardo DO; Dr. Willian Glaser MD; Dr. Deric Lantigua MD~ Signed [facility] Work Phone: 1([phone]) 245-839607-21-2025 Discharge summary Author Deric Lantigua [facility] Note Date/Time March 09, 2025 12:[address] [facility] Medical Records Department [address] [place], [place] [address] [address] Instructions for Home/Discharge Instructions 03/09/25 1031 MR#: [id number] Acct: [id number] Name: PEDRO HILLMAN Rep #:[id number] : 1945 80 From: Deric Smith PCP: [...] can be placed): Home, Self Care 03/09/25 1244<Electronically signed by Deric Lantigua MD>Deric Lantigua MD CC: FARHEEN Rodriguez; Dr. Susan Hawley MD; Dr. Paris Tiwari MD; Dr. Marjorie Green MD; Dr. Nicolette Mcdonald MD; Dr. Martin Vivas MD; Dr. Jose Lai MD; Dr. Issa Looney MD; Dr. Nicola Lindsey DO; Dr. Chago Mliler MD; Dr. Tonio Fajardo DO; Dr. Willian Glaser MD; Dr. Orly Mitchell MD; Dr. Santos Hsu MD; Dr. Reinaldo Mclain MD; RICKIE Kumari; RICKIE Cummins ~ Signed [facility] Work Phone: 1(960) 484-526307-21-2025 Hospital Discharge instructionsAdditional Instructions [facility] with Claudio catheter. [facility]: [facility] 1(841) 618-506507-21-[address] [facility] Medical Records Department [address] [place] [address] Discharge Summary 03/09/25 1251 MR#: [id number] Acct: [id number] Name: PEDRO HILLMAN Rep #:[id number] : 1945 80 From: Deric Smith PCP: Dr. Tonio Fajardo DO Status:ADM IN Location: [place] [address] Providers Date of Admission: 03/04/25 Date of Discharge: 03/09/25 Primary Care Physician: Dr. 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 ACS ruled out. Transfer Table Operator is consulted. Repeat proBNP is elevated but it does not reflect treatment response as it should not be ordered for that. Clinically patient is feeling better with improvement in shortness of breath. 2D echo 03/05 reported EF 55%, PASP 42 mmHg with moderate TR, moderate ME and mild PI. 03/06: Furosemide changed to [...] conduction. Later on irregular variable conduction on non profit director 03/06: Discussed with the business management manager. Metoprolol increased to 25 mg twice daily, Cardizem 60 mg [id number]. If heart rate controlled, will switch to [...] pressure in the 90s. Discussed with the business management manager. Advised to discontinue to discontinue metoprolol and [...] the CODE STATUS. 03/09: Discussed with the business management manager.Patient heart rate controlled in 70s. Yesterday rate was in 80s. Patient tolerated Cardizem 30 mg every 8 hourly therefore discharged on Cardizem CD 120 mg. I called patient's okmaotxv-yk-ymu and explained the medication. Transfer Table Operator felt probably does not need even pacemaker. [...] at the right lung base. Reading Location: [facility] Echocardiogram 03/04/25 20:08 Interpretation Summary Moderate concentric [...] in right lung base aeration. Reading Location: [place] [address] Medications at Discharge Home Medications insulin glargine [...] 03/05/25 14:17 SB (Rec: 03/05/25 14:17 SB [id number]) Nutrition Malnutrition Evidence of Yes Malnutrition Exists [...] (Auto) 72.6 H, Lymph % (Auto) 9.7L, Price % (Auto) 12.1 H, Eos % (Auto) [...] Care Provider: Tonio Fajardo Consulting Providers: Nicola Lind[place]; Paris Tiwari; Susan Hawley; Nicolette Mcdonald;Marjorie Green; Martin Vivas; Jose Lai; Issa Looney; Chago Miller; Willian Glaser; Orly Mitchell; Reinaldo Mclain; Santos Hsu; Iker Rodriguez CHRONOMETER ADJUSTER; Leslie Arriaga PA; Tadeo Thakkar Instructions Additional [...] Self Care Charges/Coding Visit Charges Inpatient E&M: 01119 Disch Hosp >30min 03/09/25 1252 Cosigner Signature (if applicable): CC: Dr. Tonio Fajardo DO; Dr. Willian Glaser MD; Dr. Deric Lantigua MD~ Signed [facility]07-21-2025 [facility]07-21-2025 Discharge summary [facility] Medical Records Department [address] [place] [address] Instructions for Home/Discharge Instructions 03/09/25 1031 MR#: [id number] Acct: [id number] Name: PEDRO HILLMAN Rep #:[id number] : 1945 80 From: Deric Smith PCP: [...] Green; Martin Vivas; Jose Lai; Issa Looney; Chgao Miller; Willian Glaser; Orly Mitchell; Reinaldo Mclain; Santos Hsu; Iker Rodriguez NP; Leslie Arriaga PA; Tadeo Thakkar Discharge Orders/Prescriptions Prescriptions: New diltiazem [...] Self Care 03/09/25 1244Pmaribel Lantigua MD CC: CHRONOMETER ADJUSTER-Estevan Rodriguez; Dr. Susan Hawley MD; Dr. Paris Tiwari MD; Dr. Marjorie Green MD; Dr. Nicolette Mcdonald MD; Dr. Martin Vivas MD; Dr. Jose Lai MD; Dr. Issa Looney MD; Dr. Niocla Lindsey DO; Dr. Chago Miller MD; Dr. Tonio Fajardo DO; Dr. Willian Glaser MD; Dr. Orly Mitchell MD;Dr. Santos Hsu MD; Dr. Reinaldo Mclain MD; RICKIE Kumari; RICKIE Cummins ~ Signed [facility]07-21-2025 Progress note Author Willian Glaser [facility] Note Date/Time March 09, 2025 9:53 am [facility] Medical Records Department [address] [place] [address] Progress Note - Cardiology 03/09/25 0943 MR#: [id number] Acct: [id number] Name: PEDRO HILLMAN Rep #:[id number] : 1945 80 From: Willian Glaser MD PCP: Dr. Tonio Fajardo, DO Status:ADM IN Location: [place] [address] Subjective Subjective Patient evaluated in a seated [...] (Auto) 72.6 H, Lymph % (Auto) 9.7L, Price % (Auto) 12.1 H, Eos % (Auto) [...] 72.6 H, Lymph % (Auto) 9.7 L, Price % (Auto) 12.1 H, Eos % (Auto) [...] disease: QUALIFIERS: Coronary Disease-Associated Artery/Lesion type: nativeartery [place] vs. 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 The patient should be reevaluated in 2 to 4 weeks in the [facility] with advanced practitioner. Given the patient's recovery [...] At discharge patient should follow-up with the [facility] advanced practitioner in 2 to 3 weeks. 4. If further assistance is needed please reconsult the [facility]. Charges/Coding Visit Charges Inpatient E&M: 37895 Subs Hosp L3 03/09/25 0953 <Electronically signed by Willian Glaser MD> Cosigner Signature (if applicable): CC: ~ Signed [facility] Work Phone: 1(328) 523-868907-21-[address] [facility] Medical Records Department [address] [place] [address] Progress Note - Cardiology 03/09/2543 MR#: [id number] Acct: [id number] Name: PEDRO HILLMAN #:[id number] : 1945 80 From: Willian Glaser MD PCP: Dr. Tonio Fajardo, DO Status:ADM IN Location: [address] Subjective Subjective Patient evaluated in a seated [...] (Auto) 72.6 H, Lymph % (Auto) 9.7L, Price % (Auto) 12.1 H, Eos % (Auto) [...] 72.6 H, Lymph % (Auto) 9.7 L, Price % (Auto) 12.1 H, Eos % (Auto) [...] disease: QUALIFIERS: Coronary Disease-Associated Artery/Lesion type: nativeartery [place] vs. transplanted heart: hus[place] heart Associated angina: without angina Qualified Code(s): I25.10 - Atherosclerotic heart disease of [place] coronary artery without angina pectoris PLAN: Patient carries a history of bypass graft surgery followed in the [facility]. The patient should be reevaluated in 2 to 4 weeks in the [facility] with advanced practitioner. Given the patient's recovery [...] At discharge patient should follow-up with the [facility] advanced practitioner in 2 to3 weeks. 4. If further assistance is needed please reconsult the [facility]. Charges/Coding Visit Charges Inpatient E&M: 47798 [facility] Hosp 03/09/25 0953 Cosigner Signature (if applicable): CC: ~ Signed [facility]07-20-2025 Progress note Author Deric Lantigua [facility] Note Date/Time March 08, 2025 1:[address] [facility] Medical Records Department [address] [place] [address] Progress Note - Hospitalist 03/08/25 0844 MR#: [id number] Acct: [id number] Name: PEDRO HILLMAN Rep #:[id number] : 1945 80 From: Deric Smith PCP: Dr. Tonio Fajardo, DO Status:ADM IN Location: [place] [id number]- 1 Reason for Visit Chief Complaint: SOB. [...] 03/05/25 14:17 SB (Rec: 03/05/25 14:17 SB [id number]) Nutrition Malnutrition Evidence of Yes Malnutrition Exists [...] also sustained 11 beats of V. tach. cement car dumper reviewed. Still in A-fib/flutter with bradycardia. Shortness [...] hematuria: (8) Atherosclerosis of coronary artery of hus[place] heart without angina pectoris: QUALIFIERS: Coronary Disease-Associated Artery/Lesion type: nativeartery Qualified Code(s): I25.10 - Atherosclerotic heart disease of [place] coronary artery without angina pectoris (9) Overweight [...] no significant delta change. ACS ruled out. Transfer Table Operator is consulted. Repeat proBNP is elevated but it does not reflect treatment response as it should not be ordered for that. Clinically patient is feeling better with improvement in shortness of breath. 2D echo 03/05 reported EF 55%, PASP 42 mmHg with moderate TR, moderate ME and mild PI. 03/06: Furosemide changed to [...] conduction. Later on irregular variable conduction on non profit director 03/06: Discussed with the business management manager. Metoprolol increased to 25 mg twice daily, [...] pressure in the 90s. Discussed with the business management manager. Advised to discontinue to discontinue metoprolol and [...] at the right lung base. Reading Location: [facility] Echocardiogram 03/04/25 20:08 Interpretation Summary Moderate concentric [...] in right lung base aeration. Reading Location: [place] [address] Charges/Coding Addendum Addendum: Total time of the visit including total time spent in counseling or coordinationof care, (more than 50% of the total time, spent in obtaining medical information from nurses and other ancillary care providers ,explaining to the patient about labs, imaging, diagnosis and management of active complex medical conditions), multiple active cardiac issues, urinary retention discussion with business management manager and clinical update given to patient's ikviomgu-cv-mqg, review of labs and imaging is 35 minutes. Visit Charges Inpatient E&M: 95957 Subs Hosp 03/08/25 1040 <Electronically signed by Deric Lantigua MD> Cosigner Signature (if applicable): CC: ~ Signed ADDENDUM by Dr. Deric Lantigua MD on 03/08/25 at 1334 Addendum The patient's son and sdwjeyom-ed-fok came to visit him. They decided patient to be DNR CC arrest with no intubation CODE STATUS changed. Living will/advanced directive/end of life care: Patient does not have living will or advanced directive. He is next of kin is his son and keeyehyu-ay-slc. After discussion of benefits/risks procedures involved with full code, DNR CC arrest and DNR CC, the patient and his sgksiyjb-tf-oos he opted for DNR CC arrest with no intubation. Patient also said that he does not want pacemaker but his xciwktfa-uy-jvr and son will discuss with him Patient does want artificial life support including intubation, tube feed, ventilator and/chest compression, central venous catheter, vasopressor and DC shock if needed Total time spent in unoy-kq-pmep encounter in discussion of advanced directive 17 minutes. 03/08/25 1334<Electronically signed by Deric Lantigua MD> Cosigner Signature (if applicable): cc: ~* Signed [facility] Work Phone: 1(383) 227-101507-20-[address] [facility] Medical Records Department [address] [place] [address] Progress Note - Hospitalist 03/08/25 0844 MR#: [id number] Acct: [id number] Name: PEDRO HILLMAN Rep #:[id number] : 1945 80 From: Deric Smith PCP: Dr. Tonio Fajardo, Status:ADM IN Location: [place] [id number] Reason for Visit Chief Complaint: SOB. Objective [...] 03/05/25 14:17 SB (Rec: 03/05/25 14:17 SB [id number]) Nutrition Malnutrition Evidence of Yes Malnutrition Exists [...] Patient alsosustained 11 beats of V. tach. cement car dumper reviewed. Still in A-fib/flutter with bradycardia. Shortness [...] hematuria: (8) Atherosclerosis of coronary artery of hus[place] heart without angina pectoris: QUALIFIERS: Coronary Disease-Associated Artery/Lesion type: nativeartery Qualified Code(s): I25.10 - Atherosclerotic heart disease of [place] coronary artery without angina pectoris (9) Overweight [...] no significant delta change. ACS ruled out. Transfer Table Operator is consulted. Repeat proBNP is elevated but it does not reflect treatment response as it should not be ordered for that. Clinically patient is feeling better with improvement in shortness of breath. 2D echo 03/05 reported EF 55%, PASP 42 mmHg with moderate TR, moderate ME and mild PI. 03/06: Furosemide changed to [...] conduction. Later on irregular variable conduction on non profit director 03/06: Discussed with the business management manager. Metoprolol increased to 25 mg twice daily, Cardizem 60 mg I7nefsgq. If heart rate controlled, will switch to [...] pressure in the 90s. Discussed with the business management manager. Advised to discontinue to discontinue metoprolol and [...] at the right lung base. Reading [facility] Echocardiogram 03/04/25 20:08 Interpretation Summary Moderate concentric [...] in right lung base aeration. Reading Location: [place] [address] Charges/Coding Addendum Addendum: Total time of the visit including total time spent in counseling or coordinationof care, (more than50% of the total time, spent in obtaining medical information from nurses and other ancillary care providers ,explaining to the patient about labs, imaging, diagnosis and management of active complexmedical conditions), multiple active cardiac issues, urinary retention discussion with cardiologistand clinical update given to patient's elzvozdr-jm-hgh, review of labs and imaging is 35 minutes. Visit Charges Inpatient E&M: 37735 Subs Hosp L3 03/08/25 1040 Cosigner Signature (if applicable): CC: ~ Signed ADDENDUM by Dr. Deric Lantigua MD on 03/08/25 at 1334 Addendum The patient's son and vopbkppf-yv-lsj came to visit him. They decided patient to be DNR CC arrest with no intubation CODE STATUS changed. Living will/advanced directive/end of life care: Patient does not have living will or advanced directive. He is next of kin is his son and uabcaghp-lx-ixm. After discussion of benefits/risks procedures involved with full code, DNR CC arrest and DNR CC, the patient and his vraihakq-mc-vpt he opted for DNR CC arrest with no intubation. Patient also said that he does not want pacemaker but his ntlmmjrn-ul-nhx and son will discuss with him Patient does want artificial life support including intubation, tube feed, ventilator and/chest compression, central venous catheter, vasopressor and DC shock if needed Total time spent in civn-hq-hfqw encounter in discussion of advanced directive 17 minutes. 03/08/25 1334 Cosigner Signature (if applicable): cc: ~* Signed [facility]07-20-2025 Progress note Author Marjorie Green [facility] Note Date/Time March 08, 2025 8:[address] [facility] Medical Records Department [address] [place] [address] Progress Note - Cardiology 03/08/25 0848 MR#: [id number] Acct: [id number] Name: PEDRO HILLMAN Rep #:[id number] : 1945 80 From: Marjorie Green MD PCP: Dr. Tonio Fajardo, DO Status:ADM IN Location: [place] [address] Subjective Subjective Denies any complaints. Became bradycardic [...] Cosigner Signature (if applicable): CC: ~ Signed [facility] Work Phone: 1(272) 980-714707-20-[address] [facility] Medical Records Department [address] [place] [address] Progress Note - Cardiology 03/08/25 0848 MR#: [id number] Acct: [id number] Name: PEDRO HILLMAN Rep #:[id number] : 1945 80 From: Marjorie Green MD PCP: Dr. Tonio Fajardo, DO Status:ADM IN Location: [place] [address] Subjective Subjective Denies any complaints. Became bradycardic [...] Cosigner Signature (if applicable): CC: ~ Signed [facility]07-19-2025 Progress note Author Deric Lantigua [facility] Note Date/Time March 07, 2025 1:[address] [facility] Medical Records Department [address] [place] [address] Progress Note - Hospitalist 03/07/25 1342 MR#: [id number] Acct: [id number] Name: PEDRO HILLMAN Rep #:[id number] : 1945 80 From: Deric Smith PCP: Dr. Tonio Fajardo, Status:ADM IN Location: [place] [address] Reason for Visit Chief Complaint: SOB. Objective [...] 03/05/25 14:17 SB (Rec: 03/05/25 14:17 SB [id number]) Nutrition Malnutrition Evidence of Yes Malnutrition Exists [...] low 108/34 but improved to 129 systolic. cement car dumper reviewed. Still in A-fib/flutter. Shortness of breath [...] hematuria: (8) Atherosclerosis of coronary artery of [place] heart without angina pectoris: QUALIFIERS: Coronary Disease-Associated Artery/Lesion type: nativeartery Qualified Code(s): I25.10 - Atherosclerotic heart disease of [place] coronary artery without angina pectoris (9) Overweight [...] no significant delta change. ACS ruled out. Transfer Table Operator is consulted. Repeat proBNP is elevated but it does not reflect treatment response as it should not be ordered for that. Clinically patient is feeling better with improvement in shortness of breath. 2D echo 03/05 reported EF 55%, PASP 42 mmHg with moderate TR, moderate ME and mild PI. 03/06: Furosemide changed to [...] conduction. Later on irregular variable conduction on non profit director 03/06: Discussed with the business management manager. Metoprolol increased to 25 mg twice daily, [...] in right lung base aeration. Reading Location: [place] [address] Charges/Coding Visit Charges Inpatient E&M: 29131 Subs Hosp L2 03/07/25 1351 <Electronically signed by Deric Lantigua MD> Cosigner Signature (if applicable): CC: ~ Signed [facility] Work Phone: 1(209) 753-871307-19-[address] [facility] Medical Records Department [address] [place] [address] Progress Note - Hospitalist 03/07/25 1342 MR#: [id number] Acct: [id number] Name: PEDRO HILLMAN Rep #:[id number] : 1945 80 From: Deric Smith PCP: Dr. Tonio Fajardo, DO Status:ADM IN Location: [place] [address] Reason for Visit Chief Complaint: SOB. Objective [...] 03/05/25 14:17 SB (Rec: 03/05/25 14:17 SB [id number]) Nutrition Malnutrition Evidence of Yes Malnutrition Exists [...] low 108/34 but improved to 129 systolic. cement car dumper reviewed. Still in A-fib/flutter. Shortness of breath [...] hematuria: (8) Atherosclerosis of coronary artery of hus[place] heart without angina pectoris: QUALIFIERS: Coronary Disease-Associated Artery/Lesion type: nativeartery Qualified Code(s): I25.10 - Atherosclerotic heart disease of [place] coronary artery without angina pectoris (9) Overweight [...] no significant delta change. ACS ruled out. Transfer Table Operator is consulted. Repeat proBNP is elevated but it does not reflect treatment response as it should not be ordered for that. Clinically patient is feeling better with improvement in shortness of breath. 2D echo 03/05 reported EF 55%, PASP 42 mmHg with moderate TR, moderate ME and mild PI. 03/06: Furosemide changed to [...] conduction. Later on irregular variable conduction on non profit director 03/06: Discussed with the business management manager. Metoprolol increased to 25 mg twice daily, Cardizem 60 mg [id number]. If heart rate controlled, will switch to [...] at the right lung base. Reading Location: [facility] Echocardiogram 03/04/25 20:08 Interpretation Summary Moderate concentric [...] in right lung base aeration. [facility] Charges/Coding Visit Charges Inpatient E&M: 11182 Subs Hosp L2 03/07/25 1357 Cosigner Signature (if applicable): CC: ~ Signed [facility]07-18-2025 Progress note Author Deric Lantigua [facility] Note Date/Time March 06, 2025 3:[address] [facility] Medical Records Department [address] [place] [address] Progress Note - Hospitalist 03/06/25 1540 MR#: [id number] Acct: [id number] Name: PEDRO HILLMAN Rep #:[id number] : 1945 80 From: Deric Smith PCP: Dr. Tonio Fajardo, DO Status:ADM IN Location: [place] [address] Reason for Visit Chief Complaint: SOB. Objective [...] 03/05/25 14:17 SB (Rec: 03/05/25 14:17 SB [id number]) Nutrition Malnutrition Evidence of Yes Malnutrition Exists [...] is improved. Still in A-fib/flutter with heart [id number]. Shortness of breath is better. Did not [...] hematuria: (8) Atherosclerosis of coronary artery of hus[place] heart without angina pectoris: QUALIFIERS: Coronary Disease-Associated Artery/Lesion type: nativeartery Qualified Code(s): I25.10 - Atherosclerotic heart disease of [place] coronary artery without angina pectoris (9) Overweight [...] no significant delta change. ACS ruled out. Transfer Table Operator is consulted. Repeat proBNP is elevated but it does not reflect treatment response as it should not be ordered for that. Clinically patient is feeling better with improvement in shortness of breath. 2D echo 03/05 reported EF 55%, PASP 42 mmHg with moderate TR, moderate ME and mild PI. 03/06: Furosemide changed to [...] conduction. Later on irregular variable conduction on non profit director 03/06: Discussed with the business management manager. Metoprolol increased to 25 mg twice daily, [...] at the right lung base. Reading Location: [facility] Echocardiogram 03/04/25 20:08 Interpretation Summary Moderate concentric [...] in right lung base aeration. Reading Location: [place] [address] Charges/Coding Visit Charges Inpatient E&M: 36646 Subs Hosp L2 03/06/25 1546 <Electronically signed by Deric Lantigua MD> Cosigner Signature (if applicable): CC: ~ Signed [facility] Work Phone: 1(562) 442-691807-18-[address] [facility] Medical Records Department [address] [place] [address] Progress Note - Hospitalist 03/06/25 1540 MR#: [id number] Acct: [id number] Name: PEDRO HILLMAN Rep #:[id number] : 1945 80 From: Deric Smith PCP: Dr. Tonio Fajardo, DO Status:ADM IN Location: [place] [address] Reason for Visit Chief Complaint: SOB. Objective [...] 03/05/25 14:17 SB (Rec: 03/05/25 14:17 SB [id number]) Nutrition Malnutrition Evidence of Yes Malnutrition Exists [...] is improved. Still in A-fib/flutter with heart [id number]. Shortness of breath is better. Did not [...] hematuria: (8) Atherosclerosis of coronary artery of hus[place] heart without angina pectoris: QUALIFIERS: Coronary Disease-Associated Artery/Lesion type: nativeartery Qualified Code(s): I25.10 - Atherosclerotic heart disease of [place] coronary artery without angina pectoris (9) Overweight [...] no significant delta change. ACS ruled out. Transfer Table Operator is consulted. Repeat proBNP is elevated but it does not reflect treatment response as it should not be ordered for that. Clinically patient is feeling better with improvement in shortness of breath. 2D echo 03/05 reported EF 55%, PASP 42 mmHg with moderate TR, moderate ME and mild PI. 03/06: Furosemide changed to [...] conduction. Later on irregular variable conduction on non profit director 03/06: Discussed with the business management manager. Metoprolol increased to 25 mg twice daily, Cardizem 60 mg [id number]. If heart rate controlled, will switch to [...] at the right lung base. Reading Location: [facility]1 Echocardiogram 03/04/25 20:08 Interpretation Summary Moderate concentric [...] in right lung base aeration. Reading Location: [place] [address] Charges/Coding Visit Charges Inpatient E&M: 60977 Subs Hosp L2 03/06/25 1546 Cosigner Signature (if applicable): CC: ~ Signed [facility]07-18-2025 Consult note Author Marjorie Green [facility] Note Date/Time March 06, 2025 9:[address] [facility] Medical Records Department [address] [place] [address] Consultation - Cardiology 03/06/25 0926 MR#: [id number] Acct: [id number] Name: PEDRO HILLMAN Rep #:[id number] : 1945 80 From: Marjorie Green MD PCP: Dr. Tonio Fajardo, DO Status:ADM IN Location: [facility] [id number] Assessment & Plan Assessment/Plan (1) Atrial flutter [...] his shortness of breath is much improved. [facility] Medical History (Updated 03/06/25 @ 09:[address] Marjorie Green MD) Other persistent atrial fibrillation New onset atrial flutter DIMA Wears hearing aid in both ears Former smoker Coronary artery disease Peripheral vascular occlusive disease BPH (benign prostatic hyperplasia) Chronic kidney disease, stage 3 Atherosclerosis of coronary artery of huslia heart without angina pectoris Hyperlipidemia Lower extremity [...] By: Haley Stevens and Student 03/06/25 0933 <Electronically signed by Marjorie Green MD> Cosigner Signature (if applicable): CC: Dr. Tonio Fajardo, DO~ Signed [facility] Work Phone: 1(274) 271-243407-18-[address] [facility] Medical Records Department [address] [place] [address] Consultation - Cardiology 03/06/25925 MR#: [id number] Acct: [id number] Name: PEDRO HILLMAN Rep #:[id number] : 1945 80 From: Marjorie Green MD PCP: Dr. Tonio Fajardo, DO Status:ADM IN Location: [place] [id number]- [id number] Assessment & Plan Assessment/Plan (1) Atrial flutter [...] his shortness of breath is much improved. [facility] Medical History (Updated 03/06/25 @ 09:[address] Marjorie Green MD) Other persistent atrial fibrillation New onset atrial flutter COVID Wears hearing aid in both ears Former smoker Coronary artery disease Peripheral vascular occlusive disease BPH (benign prostatic hyperplasia) Chronic kidney disease, stage 3 Atherosclerosis of coronary artery of huslia heart without angina pectoris Hyperlipidemia Lower extremity [...] Performed By: Haley Stevens and Student 03/06/25 0996 Cosigner Signature (if applicable): CC: Dr. Tonio Fajardo, DO~ Signed [facility]07-17-2025 Progress note Author Deric Lantigua [facility] Note Date/Time March 05, 2025 3:[address] [facility] Medical Records Department [address] [place] [address] Progress Note - Hospitalist 03/05/2519 MR#: [id number] Acct: [id number] Name: PEDRO HILLMAN Rep #:[id number] : 1945 80 From: Deric Smith PCP: Dr. Tonio Fajardo, DO Status:ADM IN Location: [place] [address] Reason for Visit Chief Complaint: SOB. Objective [...] 78.1 H, Lymph % (Auto) 10.1 L, Price % (Auto) 9.1, Eos % (Auto) 1.6, [...] Clarity Cloudy, Urine pH 6.5, Ur Specific [place] 1.010, Urine Protein 100 H, Urine Glucose [...] (Auto) 76.4 H, Lymph % (Auto) 9.5L, Price % (Auto) 11.4 H, Eos % (Auto) [...] at the right lung base. Reading Location: [facility]-1 Chest X-Ray 03/05/25 04:30 IMPRESSION: Small interval improvement in right lung base aeration. Reading Location: [facility]-2 Rhythm Strip Rhythm Strip: Atrial flutter Rate: [...] hematuria: (8) Atherosclerosis of coronary artery of huslia heart without angina pectoris: QUALIFIERS: Coronary Disease-Associated Artery/Lesion type: nativeartery Qualified Code(s): I25.10 - Atherosclerotic heart disease of huslia coronary artery without angina pectoris (9) Overweight [...] no significant delta change. ACS ruled out. Transfer Table Operator is consulted. Repeat proBNP is elevated but it does not reflect treatment response as it should not be ordered for that. Clinically patient is feeling better with improvement in shortness of breath. 2D echo 03/05 reported EF 55%, PASP 42 mmHg with moderate TR, moderate ME and mild PI. 2. EKG evidence of Atrial Flutter; with Rapid Ventricular Response of ~117 bpm even after being treated with IV Cardizem bolus probably precipitating CHF exacerbation: Patient already on apixaban patient had digoxin. TSH 3.7 normal. Twelve-lead EKG individually reviewed and shows atrial flutter 2 is to 1 conduction. Later on irregular variable conduction on non profit director 3. CKD; stage IIIb with hyperkalemia, present [...] Clarity Cloudy, Urine pH 6.5, Ur Specific [place] 1.010, Urine Protein 100 H, Urine Glucose [...] (Auto) 76.4 H, Lymph % (Auto) 9.5L, Price % (Auto) 11.4 H, Eos % (Auto) [...] at the right lung base. Reading Location: [facility]1 Echocardiogram 03/04/25 20:08 Interpretation Summary Moderate concentric [...] in right lung base aeration. Reading Location: [place] [address] Charges/Coding Addendum Addendum: Total time of the [...] imagingis 35 minutes. Visit Charges Inpatient E&M: 04005 Subs Hosp L3 03/05/25 7814 <Electronically signed by Deric Lantigua MD> Cosigner Signature (if applicable): CC: ~ Signed [facility] Work Phone: 1(111) 552-927407-17-2025 Progress note [facility] Medical Records Department [address] [place] [address] Progress Note - Hospitalist 03/05/25718 MR#: [id number] Acct: [id number] Name: PEDRO HILLMAN Rep #:[id number] : 1945 80 From: Deric Smith PCP: Dr. Tonio Fajardo, DO Status:ADM IN Location: [place] [address] Reason for Visit Chief Complaint: SOB. Objective [...] 78.1 H, Lymph % (Auto) 10.1 L, Price % (Auto) 9.1, Eos % (Auto) 1.6, [...] Clarity Cloudy, Urine pH 6.5, Ur Specific [place] 1.010, Urine Protein 100 H, Urine Glucose [...] (Auto) 76.4 H, Lymph % (Auto) 9.5L, Price % (Auto) 11.4 H, Eos % (Auto) [...] at the right lung base. Reading Location: [facility]1 Chest X-Ray 03/05/25 04:30 IMPRESSION: Small interval improvement in right lung base aeration. Reading Location: [facility] Rhythm Strip Rhythm Strip: Atrial flutter Rate: [...] hematuria: (8) Atherosclerosis of coronary artery of huslia heart without angina pectoris: QUALIFIERS: Coronary Disease-Associated Artery/Lesion type: nativeartery Qualified Code(s): I25.10 - Atherosclerotic heart disease of huslia coronary artery without angina pectoris (9) Overweight [...] no significant delta change. ACS ruled out. Transfer Table Operator is consulted. Repeat proBNP is elevated but it does not reflect treatment response as it should not be ordered for that. Clinically patient is feeling better with improvement in shortness of breath. 2D echo 03/05 reported EF 55%, PASP 42 mmHg with moderate TR, moderate ME and mild PI. 2. EKG evidence of Atrial Flutter; with Rapid Ventricular Response of ~117 bpm even after being treated with IV Cardizem bolus probably precipitating CHF exacerbation: Patient already on apixaban patient had digoxin. TSH 3.7 normal. Twelve-lead EKG individually reviewed and shows atrial flutter 2 is to 1 conduction. Later on irregular variable conduction on non profit director 3. CKD; stage IIIb with hyperkalemia, present [...] Clarity Cloudy, Urine pH 6.5, Ur Specific [place] 1.010, Urine Protein 100 H, Urine Glucose [...] (Auto) 76.4 H, Lymph % (Auto) 9.5L, Price % (Auto) 11.4 H, Eos % (Auto) [...] in right lung base aeration. Reading Location: [place] [address] Charges/Coding Addendum Addendum: Total time of the [...] imagingis 35 minutes. Visit Charges Inpatient E&M: 40560 Subs Hosp 03/05/25 1556 Cosigner Signature (if applicable): CC: ~ Signed [facility]07-17-2025 History and physical note Author Nicola Madison [facility] Note Date/Time March 05, 2025 6:[address] [facility] Medical Records Department [address] [place] [address] H&P Exam - Hospitalist 03/04/251921 MR#: [id number] Acct: [id number] Name: PEDRO HILLMAN Rep #:[id number] : 1945 80 From: Nicola Levy DO PCP: Dr. Tonio Fajardo, DO Status:ADM IN Location: [facility] [id number]- 1 [facility] - General General Date of Admission: 03/04/25 [...] of COVID-19 and OA who presents to [facility] ER complaining of SOB. Mr. Hillman [...] ~53% with moderate mitral annular calcification and kzuv-xf-chywhoij (~1-2+) mitral valve insufficiency with a pulmonary [...] is expected to extend beyond 2 midnights. [facility] Medical History Other persistent atrial fibrillation New onset atrial flutter COVID Wears hearing aid in both ears Former smoker Coronary artery disease Peripheral vascular occlusive disease BPH (benign prostatic hyperplasia) Chronic kidney disease, stage 3 Atherosclerosis of coronary artery of huslia heart without angina pectoris Hyperlipidemia Lower extremity [...] 78.1 H, Lymph % (Auto) 10.1 L, Price % (Auto) 9.1, Eos % (Auto) 1.6, [...] at the right lung base. Reading Location: [facility]-1 Assessment & Plan Assessment/Plan (1) CHF exacerbation: QUALIFIERS: Heart failure type: unspecified Qualified Code(s): I50.9 - Heart failure, unspecified (2) Atrial flutter with rapid ventricular response: (3) Chronic anticoagulation: (4) Elevated troponin: (5) Hyperkalemia: (6) Pleural effusion on right: (7) Acute cystitis with hematuria: (8) Atherosclerosis of coronary artery of huslia heart without angina pectoris: QUALIFIERS: Coronary Disease-Associated Artery/Lesion type: nativeartery Qualified Code(s): I25.10 - Atherosclerotic heart disease of huslia coronary artery without angina pectoris (9) Overweight [...] LVEF. Serialize troponin. Finally, we will consult [facility] see this patient on rounds [...] 75 minutes. Charges/Coding Visit Charges Inpatient E&M: 48574 Init Hosp L3 03/05/25 0622 <Electronically signed by Nicola Lindsey DO> Cosigner Signature (if applicable): CC: Dr. Nicola Lindsey DO; Dr. Tonio Fajardo DO~ Signed [facility] Work Phone: 1(402) 870-402307-17-[address] [facility] Medical Records Department [address] [place] [address] H&P Exam - Hospitalist 03/04/251921 MR#: [id number] Acct: [id number] Name: PEDRO HILLMAN Rep #:[id number] : 1945 80 From: Nicola Levy DO PCP: Dr. Tonio Fajardo, DO Status:ADM IN Location: [facility] [id number]- 1 [facility] - General General Date of Admission: 03/04/25 [...] of COVID-19 and OA who presents to [facility] ERcomplaining of SOB. Mr. Hillman reports [...] ~53% with moderate mitral annular calcification and eytd-gj-jmkrfshv (~1-2+) mitral valve insufficiency with a pulmonary [...] is expected to extend beyond 2 midnights. [facility] Medical History Other persistent atrial fibrillation New onset atrial flutter COVCOLETTE Wears hearing aid in both ears Former smoker Coronary artery disease Peripheral vascular occlusive disease BPH (benign prostatic hyperplasia) Chronic kidney disease, stage 3 Atherosclerosis of coronary artery of huslia heart without angina pectoris Hyperlipidemia Lower extremity [...] 78.1 H, Lymph % (Auto) 10.1 L, Price % (Auto) 9.1, Eos % (Auto) 1.6, [...] at the right lung base. Reading Location: [facility] Assessment & Plan Assessment/Plan (1) CHF exacerbation: QUALIFIERS: Heart failure type: unspecified Qualified Code(s): I50.9 - Heart failure, unspecified (2) Atrial flutter with rapid ventricular response: (3) Chronic anticoagulation: (4) Elevated troponin: (5) Hyperkalemia: (6) Pleural effusion on right: (7) Acute cystitis with hematuria: (8) Atherosclerosis of coronary artery of huslia heart without angina pectoris: QUALIFIERS: Coronary Disease-Associated Artery/Lesion type: nativeartery Qualified Code(s): I25.10 - Atherosclerotic heart disease of huslia coronary artery without angina pectoris (9) Overweight [...] LVEF. Serialize troponin. Finally, we will consult [facility] see this patient on rounds [...] 75 minutes. Charges/Coding Visit Charges Inpatient E&M: 08929 Init Hosp L3 03/05/25 0622 Cosigner Signature (if applicable): CC: Dr. Nicola Lindsey DO; Dr. Tonio Fajardo DO~ Signed [facility]07-17-2025 Radiology Diagnostic study note [facility] Imaging Services [address] [place], [place] [id number] Chest 1 View (Portable) MR#: [id number] Acct: [id number] Name: PEDRO HILLMAN #: [id number] : 1945 M 80 From: Regi Babb MD PCP: Dr. Tonio Fajardo DO Status: ADM IN Study:Chest 1 View (Portable) Date of Exam: 03/05/25 Exam# [id number] Ordering Dr: Nicola Mukherjee DO PROCEDURE: CHEST [...] in right lung base aeration. Reading Location: [facility]2 CC: Dr. Nicola Lindsey DO; Dr. Tonio Fajardo DO ~ Covered Buckle Assembler: Signed [facility]07-16-2025 Evaluation note* Diagnosis Onset Date Resolution Status Admit Date Acute cystitis with hematuria acute March 04, 2025 7:57pm Atrial flutter with rapid ventricular response acute March 04, 2025 7:57pm Chronic anticoagulation acute shanda2024 7:57pm Coronary artery disease acute shanda2024 7:57pm Diabetes acute March 04 7:57pm Elevated troponin acute March 042024 7:57pm Hyperkalemia acute March 04, 2 025 7:57pm Mitral valve regurgitation acute March [...] 042024 7:57pm Atherosclerosis of coronary artery of huslia heart without angina pectoris chronic March 04, 2025 7:57pm CHF exacerbation chronic February 7:57pm Hypertension chronic March 04 7:57pm [facility] Work Phone: 1(251) 541-384607-16-2025 Evaluation note* Diagnosis Onset Date Resolution Status Admit Date Acute cystitis with hematuria acute March 04, 2025 7:57pm Atrial flutter with rapid ventricular response acute March 04, 2025 7:57pm Chronic anticoagulation acute J 2024 7:57pm Coronary artery disease acute J shanda 2024 7:57pm Diabetes acute March 04 7:57pm Elevated troponin acute March 042024 7:57pm Hyperkalemia acute March 04 7:57pm Mitral valve regurgitation acute March 04, 2025 7:57pm Other persistent atrial fibrillation acute March 04, 2025 7:57pm Overweight (BMI 25.0-29.9) acute March 04, 2025 7:57pm Pleural effusion on right acute March 04, 2025 7:57pm Tricuspid valve regurgitation acute March 04, 2025 7:57pm Acute on chronic diastolic congestive heart failure chronic March 042024 7:57pm Atherosclerosis of coronary artery of huslia heart without angina pectoris chronic March 04, 2025 7:57pm CHF exacerbation chronic February 7:57pm Hypertension chronic March 04, 7:57pm Peripheral arterial disease inactive March 04, 2025 7:57pm Other persistent atrial fibrillation acute March 17, 2025 12:51pm Hyperlipidemia chronic March 17, 2025 12:51pm Hypertension chronic March 17, 025 12:51pm Peripheral vascular occlusiv e disease chronic March 17, 2025 12:51pm 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 Note Date/Time March 04, 2025 7:[address] [facility] Medical Records Department [address] [place] [address] Emergency Department Summary 03/04/25 MR#: [id number] Acct: [id number] Name: PEDRO HILLMAN Rep #:[id number] : 1945 80 From: Chris Ochoa MD [...] stage 3 Atherosclerosis of coronary artery of huslia heart without angina pectoris Hyperlipidemia Lower extremity [...] signs. Back nontender. Movingall 4 extremities. 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 Calves nontender without edema or cords. [...] 78.1 H Lymph % (Auto) 10.1 L Price % (Auto) 9.1 Eos % (Auto) 1.6 [...] at the right lung base. Reading Location: [place] [address] Chest x-ray, 2 views, AP and lateral, [...] Chronic anticoagulation Disposition Disposition: Acute Care Hospital [facility] What to do if you have Problems For any increased pain, shortness of breath, bleeding, nausea or vomiting, chestpain, or any unexpected problems, contact your Primary Care Provider. Call [facility] ([phone]) or report to the closest Emergency Room. Call 911 if necessary. 03/04/251925 <Electronically signed by Chris Ochoa MD> Cosigner Signature (if applicable): CC: Dr. Tonio Fajardo DO ~ Signed [facility] Work Phone: 1(838) 944-527207-16-[address] [facility] Medical Records Department [address] [place] [address] Emergency Department Summary 03/04/25 MR#: [id number] Acct: [id number] Name: PEDRO HILLMAN Rep #:[id number] : 1945 80 From: Chris Ochoa MD [...] stage 3 Atherosclerosis of coronary artery of huslia heart without angina pectoris Hyperlipidemia Lower extremity [...] signs. Back nontender. Movingall 4 extremities. 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 Calves nontender without edema or cords. [...] 78.1 H Lymph % (Auto) 10.1 L Price % (Auto) 9.1 Eos % (Auto) 1.6 [...] at the right lung base. Reading Location: [facility]-1 Chest x-ray, 2 views, AP and lateral, [...] COPD, Chronic kidneydisease, Chronic anticoagulation Disposition Disposition: [facility] What to do if you have Problems For any increased pain, shortness of breath, bleeding, nausea or vomiting, chestpain, or any unexpected problems, contact your Primary Care Provider. Call [facility] ([phone]) or report tothe closest Emergency Room. Call 911 if necessary. 03/04/251925 Cosigner Signature (if applicable): CC: Dr. Tonio Fajardo DO ~ Signed [facility]07-16-2025 Radiology Diagnostic study note [facility] Imaging Services [address] [place], [place] [address] Chest PA and Lateral MR#: [id number] Acct: [id number] Name: PEDRO HILLMAN Rep #: [id number] : 1945 M 80 From: Tom Flores MD PCP: Dr. Tonio Fajardo DO Status: PRE ER Study:Chest PA and Lateral Date of Exam: 03/04/25 Exam# [id number] Ordering Dr: Camila Ochoa MD PROCEDURE: CHEST [...] at the right lung base. Reading Location: [place] [address] CC: Dr. Chris Ochoa MD; Dr. Tonio Fajardo DO ~ Covered Buckle Assembler: Signed [facility]07-16-2025 Discharge summary Author Chris Ochoa [facility] Note Date/Time March 04, 2025 7:[address] [facility] Medical Records Department [address] [place] [address] Emergency Department Summary 03/04/25 MR#: [id number] Acct: [id number] Name: PEDRO HILLMAN Rep #:[id number] : 1945 80 From: Chris Ochoa MD [...] stage 3 Atherosclerosis of coronary artery of huslia heart without angina pectoris Hyperlipidemia Lower extremity [...] signs. Back nontender. Movingall 4 extremities. 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 Calves nontender without edema or cords. [...] 78.1 H Lymph % (Auto) 10.1 L Price % (Auto) 9.1 Eos % (Auto) 1.6 [...] at the right lung base. Reading Location: [place] [address] Chest x-ray, 2 views, AP and lateral, [...] Chronic anticoagulation Disposition Disposition: Acute Care Hospital [facility] What to do if you have Problems For any increased pain, shortness of breath, bleeding, nausea or vomiting, chestpain, or any unexpected problems, contact your Primary Care Provider. Call [employer] [facility] ([phone]) or report to the closest Emergency Room. Call 911 if necessary. 07/16/25 1926 <Electronically signed by Chris Ochoa MD> Cosigner Signature (if applicable): CC: Dr. Tonio Fajardo, DO ~ Signed 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 Work Phone: 1(202) 618-748303-13-2025 Radiology Diagnostic study note [facility] Imaging Services [address] [place], [place] [address] CT Chest AND Abd W/ Contrast MR#: [id number] Acct: [id number] Name: PEDRO HILLMAN Rep #: [id number] : 1945 M 79 From: Tom Flores MD PCP: Dr. Tonio Fajardo, Status: REG CLI Study:CT Chest AND Abd W/ Contrast Date of Ex am: 10/30/24 Exam# [id number] Ordering Dr: Frantz Zamora MD PROCEDURE: CT [...] use of iterative reconstruction technique). Reading Location: [place] CC: Dr. Russ Zamora MD; Dr. Tonio Fajardo DO ~ Covered Buckle Assembler: Signed [facility]02-28-[address] [facility] Pulmonary Services/Neurology [address] [place] [address] MR#: [id number] Acct: [id number] Name: PEDRO HILLMAN Rep #:[id number] : 1945 79 From: Tyrell Uriarte DO Referring Dr: Lorie Mart CHRONOMETER ADJUSTER CHRONOMETER ADJUSTER-C Status: REG CLI Location: [facility] Date: Sex: M C PSN 6 Minute Walk Test 6 Minute Walk Test 6 Minute Walk Test: 6 Minute Walk Test PSN:6-Minute Walk Test Start: 10/16/24 13:24 Freq: Status: Active Protocol: RESP.6MINW Document 10/16/24 13:24 [facility] (Rec: 10/16/24 13:34 [facility] [id number]) 6 Minute Walk Test Date Performed 10/16/24 Time Performed 12:30 Height 5 ft 6 in Weight: 174 lb Weight in Pounds 174.[address]: Lorie Mart NP Assistive device Walker used: Pre-test Oxygen Delivery [...] Dictated: 10/17/24 1004 Date Transcribed: 10/17/24 1004 Covered Buckle Assembler: Dr. Tyrell Uriarte, Signed 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 Work Phone: 1(245) 243-571702-06-2025 Evaluation note* Diagnosis Onset Date Resolution Status [...] right lung chronic Marlon h 2024 1:24pm [facility] Work Phone: 1(991) 927-864610-20-2023 Procedure [facility] 04-18-2023 Progress note Author Joaquim Suárez [facility] April 18, 2023 7:12pm Note Date/Time April 18, 2023 3: 56pm [facility] [address] [place] [address] Progress Note - Wound Care 04/18/23 1549 MR#: [id number] Acct: [id number] Name: PEDRO HILLMAN Rep #:[id number] : 1945 78 From: Joaquim Smith PM [...] Start: 04/02/23 11:22 Freq: Status: Active Protocol: URBAN.LOWEXT Activity Type Activity Date Activity User E-sign Co-sign Detail Recorded Client Recorded Date Recorded By Document 04/02/23 11:24 [id number] 04/02/23 11:25 PL Document 04/18/23 13:24 [facility] [id number] 04/18/23 13:30 [facility] 04/02/23 04/18/23 11:24 13:24 - Today's Visit Information Type of service Follow-up Visit Follow-up Visit (Physician/DIRECTOR SPEECH LANGUAGE (Physician/DIRECTOR SPEECH LANGUAGE ) ) Arrival Mode Ambulatory,Cane Ambulatory,Cane Transfer [...] Recorded Date Recorded By Document 04/18/23 13:24 [facility] [id number] 04/18/23 13:30 [facility] 04/18/23 13:24 Wound Center Nurse 1 #9 [...] Attached -Granulation Amt Large (67-100%) -Granulation Quality [place] -Slough/Fibrin No -Necrosis Amt None Present (0 [...] Recorded Date Recorded By Document 04/02/23 11:42 [id number] 04/02/23 11:53 Document 04/18/23 14:03 [id number] 04/18/23 14:04 04/02/23 04/18/23 11:42 14:03 Wound [...] Recorded Date Recorded By Document 04/02/23 11:54 [id number] 04/02/23 11:54 Document 04/18/23 14:24 [id number] 04/18/23 14:25 RB 04/02/23 04/18/23 11:54 14:24 [...] mellitus with diabetic polyneuropathy QUALIFIERS: Diabetes mellitus buttermaker insulin use: with buttermaker use Qualified Code(s): E11.42 - Type 2 diabetes mellitus with diabetic polyneuropathy; 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 Work Phone: 1(725) 617-649908-20-2023 Progress note Author Bonny Glynn [facility] April 07, 2023 10:44pm Note Date/Time April 02, 2023 12 :35pm [facility] [address] [place] [address] Progress Note - Wound Care 04/02/23 1235 MR#: [id number] Acct: [id number] Name: PEDRO HILLMAN Rep #:[id number] : 1945 78 From: Bonny garcia CHRONOMETER ADJUSTER CHRONOMETER ADJUSTER-C PCP: Dr. Tonio Fajardo, DO Status:REG RCR [...] 11:24 04/02/23 11:24 Charges/Coding Procedures Integumentary 111xxx-113xx: 10763 Mihaela subq tissue 20 sq cm/< Debridement [...] Recorded Date Recorded By Document 04/02/23 11:24 [id number] 04/02/23 11:25 PL 04/02/23 11:24 WC - Today's Visit Information Type of service Follow-up Visit (Physician/DIRECTOR SPEECH LANGUAGE ) Arrival Mode Ambulatory,Cane Transfer Assistance None [...] Date Recorded By Document 04/02/23 11:42 DORA [id number] 04/02/23 11:53 04/02/23 11:42 Wound Center Nurse 2 #9 [...] Recorded Date Recorded By Document 04/02/23 11:54 DORA [id number] 04/02/23 11:54 04/02/23 11:54 Wound Care Center [...] that the wound center will have a embossed or impressed lettering painter, will have the patient see him for further evaluation and treatment. Follow up two weeks. Call or come in sooner if develop any questions or concerns. 04/07/235 <Electronically signed by Bonny Glynn NP CHRONOMETER ADJUSTER-C> Cosigner Signature (if applicable): CC: ~ Signed [facility] Work Phone: 1(555) 562-155507-17-2023 Progress note Author Bonny Glynn [facility] March 05, 2023 1:06pm Note Date/Time March 05, 2023 12:[address] [facility] [address] [place] [address] Progress Note - Wound Care 03/05/23 1226 MR#: [id number] Acct: [id number] Name: PEDRO HILLMAN Rep #:[id number] : 1945 78 From: Bonny garcia CHRONOMETER ADJUSTER CHRONOMETER ADJUSTER-C PCP: Dr. Tonio Fajardo, DO Status:REG RCR [...] Method Room Air Charges/Coding Procedures Integumentary 111xxx-113xx: 52331 Mihaela subq tissue 20 sq cm/< Debridement [...] Recorded Date Recorded By Document 02/19/23 13:34 [id number] 02/19/23 13:36 Document 03/05/23 11:26 JACOB [id number] 03/05/23 11:29 02/19/23 03/05/23 13:34 11:26 - Today's Visit Information Type of service Follow-up Visit Follow-up Visit (Physician/DIRECTOR SPEECH LANGUAGE (Physician/DIRECTOR SPEECH LANGUAGE ) ) Arrival Mode Ambulatory Ambulatory,Cane Accompanied [...] Recorded Date Recorded By Document 02/19/23 13:34 [id number] 02/19/23 13:36 Document 03/05/23 11:26 KW [id number] 03/05/23 11:29 KW 02/19/23 03/05/23 13:34 11:26 [...] Large (67-100%) Small (1-33%) -Granulation Quality Red [place] -Slough/Fibrin No -Necrosis Amt Small (1-33%) -Structure Exposed N/A None/Limited to Skin Breakdown -Texture (Anna-wound Skin Appearance) Assessed Assessed,Callus -Moisture (Anna-wound Skin Appearance) Assessed,Dry/ Assessed Scaly -Color (Anna-wound Skin Appearance) Assessed Assessed,Palor -Temperature (Nana-wound Skin No Abnormality No Abnormality Appearance) (Pt [...] Recorded Date Recorded By Document 02/19/23 13:37 [id number] 02/19/23 13:39 JF Document 03/05/23 11:37 [id number] 03/05/23 11:46 JF 02/19/23 03/05/23 13:37 11:37 Wound Center Nurse [...] Date Recorded By Document 02/19/23 13:43 MW [id number] 02/19/23 13:44 MW Document 03/05/23 11:53 [facility] [id number] 03/05/23 11:55 BMF 02/19/23 03/05/23 13:43 11:53 Wound Care Center [...] 1306 <Electronically signed by Bonny Glynn NP CHRONOMETER ADJUSTER-C> Cosigner Signature (if applicable): CC: ~ Signed [facility] Work Phone: 1([phone]) 471-988807-03-2023 Progress note [facility] February 19, 2023 2:23pm Note Date/Time February 19, 2023 2:16p m [facility] [address] [place] [address] Progress Note - Wound Care 02/19/23 1412 MR#: [id number] Acct: [id number] Name: PEDRO HILLMAN Rep #:[id number] : 1945 78 From: Bonny garcia NP CHRONOMETER ADJUSTER-C PCP: Dr. Tonio Fajardo, DO Status:REG R Location: History of Present Illness Date of [...] 13:34 02/19/23 13:34 Charges/Coding Procedures Integumentary 111xxx-113xx: 51307 Mihaela subq tissue 20 sq cm/< Debridement [...] Date Recorded By Document 02/19/23 13:34 DORA [id number] 02/19/23 13:36 DORA 02/19/23 13:34 - Today's Visit Information Type of service Follow-up Visit (Physician/DIRECTOR SPEECH LANGUAGE ) Arrival Mode Ambulatory Patient Requires Transmission-Based [...] Date Recorded By Document 02/19/23 13:34 DORA [id number] 02/19/23 13:36 DORA 02/19/23 13:34 Wound Center [...] Recorded Date Recorded By Document 02/19/23 13:37 [id number] 02/19/23 13:39 02/19/23 13:37 Wound Center Nurse [...] Date Recorded By Document 02/19/23 13:43 MW [id number] 02/19/23 13:44 MW 02/19/23 13:43 Wound Care [...] if develop any questions or concerns. 02/19/23 8916 <Electronically signed by Bonny Glynn NP CHRONOMETER ADJUSTER-C> Cosigner Signature (if applicable): CC: ~ Signed [facility] Work Phone: [phone]) [phone] Progress note Author Bonny Glynn [facility] February 05, 2023 2:37pm Note Date/Time February 05, 2023 1:[address] [facility] [address] [place] [address] Progress Note - Wound Care 02/05/23 1359 MR#: [id number] Acct: [id number] Name: PEDRO HILLMAN Rep #:[id number] : 1945 78 From: Bonny garcia CHRONOMETER ADJUSTER CHRONOMETER ADJUSTER-C PCP: Dr. Tonio Fajardo, DO Status:REG RCR Location: History of Present Illness Date of Service: 02/05/23 Chief Complaint: right medial foot ulcer History of Wound: This 78-year-old male returns to the wound healing clinic for reoccurrence of a right medial foot ulcer. Wound care has been Moistened Cass covered with Goldthwaite SAP dressing. Patient diabetic neuropathic. Patient dealing [...] Method Room Air Charges/Coding Procedures Integumentary 111xxx-113xx: 27139 Mihaela subq tissue 20 sq cm/< Debridement [...] Date Recorded By Document 01/22/23 13:45 DL [id number] 01/22/23 13:48 DL Document 02/05/23 13:10 [facility] [id number] 02/05/23 13:15 [facility] 01/22/23 02/05/23 13:45 13:10 - Today's Visit Information Type of service Follow-up Visit Follow-up Visit (Physician/DIRECTOR SPEECH LANGUAGE (Physician/DIRECTOR SPEECH LANGUAGE ) ) Arrival Mode Ambulatory Ambulatory,Cane Transfer [...] Date Recorded By Document 01/22/23 13:45 DL [id number] 01/22/23 13:48 DL Document 02/05/23 13:10 BMF [id number] 02/05/23 13:15 BMF 01/22/23 02/05/23 13:45 13:10 Wound Center Nurse [...] Present (0 Large (67-100%) %) -Granulation Quality [place] -Slough/Fibrin Yes -Necrosis Amt Small (1-33%) Small [...] Used 5% Lidocaine 5% Lidocaine Gel Gel - Nurse 2 - General Ulcer CM Notes Start: 01/22/23 13:42 Freq: Status: Active Protocol: Activity Type Activity Date Activity User E-sign Co-sign Detail Recorded Client Recorded Date Recorded By Document 01/22/23 14:22 [id number] 01/22/23 14:23 01/22/23 14:22 Wound Center Nurse [...] Date Recorded By Document 01/22/23 14:30 DL [id number] 01/22/23 14:31 DL Document 02/05/23 13:49 BMF [id number] 02/05/23 13:49 BMF 01/22/23 02/05/23 14:30 13:49 Wound Care Center [...] 1437 <Electronically signed by Bonny Glynn NP CHRONOMETER ADJUSTER-C> Cosigner Signature (if applicable): CC: ~ Signed [facility] Work Phone: 1(994) 380-630706-05-2023 Progress note Author Bonny Glynn [facility] January 22, 2023 3:47pm Note Date/Time January 22, 2023 3:31p m [facility] [address] [place] [address] Progress Note - Wound Care 01/22/23 1529 MR#: [id number] Acct: [id number] Name: PEDRO HILLMAN Rep #:[id number] : 1945 78 From: Bonny garcia CHRONOMETER ADJUSTER CHRONOMETER ADJUSTER-C PCP: Dr. Tonio Fajardo, DO Status:REG RCR Location: History of Present Illness Date of Service: 01/22/23 Chief Complaint: right medial foot ulcer History of Wound: This 78-year-old male returns to the wound healing clinic for reoccurrence of a right medial foot ulcer. Wound care has been Moistened Cass covered with Goldthwaite SAP dressing. Patient diabetic neuropathic. Patient dealing [...] 13:45 01/22/23 13:45 Charges/Coding Procedures Integumentary 111xxx-113xx: 72430 Mihaela subq tissue 20 sq cm/< Debridement [...] Date Recorded By Document 01/22/23 13:45 DL [id number] 01/22/23 13:48 DL 01/22/23 13:45 WC - Today's Visit Information Type of service Follow-up Visit (Physician/DIRECTOR SPEECH LANGUAGE ) Arrival Mode Ambulatory Transfer Assistance None [...] Date Recorded By Document 01/22/23 13:45 DL [id number] 01/22/23 13:48 DL 01/22/23 13:45 Wound Center [...] Abnormality Appearance) (Pt Warm) -Tenderness on Palpation (Nana-wound No Skin Appearance) -Ulcer Cleansing Rinsed/ Irrigated with Saline -Foul Odor after Cleansing No -Anesthetic Used 5% Lidocaine Gel WC - Nurse 2 - General Ulcer CM Notes Start: 01/22/23 13:42 Freq: Status: Active Protocol: Activity Type Activity Date Activity User E-sign Co-sign Detail Recorded Client Recorded Date Recorded By Document 01/22/23 14:22 [id number] 01/22/23 14:23 01/22/23 14:22 Wound Center Nurse [...] Date Recorded By Document 01/22/23 14:30 DL [id number] 01/22/23 14:31 DL 01/22/23 14:30 Wound Care [...] if develop any questions or concerns. 01/22/23 3665 <Electronically signed by Bonny Glynn NP CHRONOMETER ADJUSTER-C> Cosigner Signature (if applicable): CC: ~ Signed [facility] Work Phone: 1(291) 520-645605-22-2023 Progress note Author Bonnyparris Glynn [facility] January 08, 2023 2:17pm Note Date/Time January 08, 2023 2:10p m [facility] [address] [place] [address] Progress Note - Wound Care 01/08/23 1407 MR#: [id number] Acct: [id number] Name: PEDRO HILLMAN Rep #:[id number] : 1945 77 From: Bonny garcia NP CHRONOMETER ADJUSTER-C PCP: Dr. Tonio Fajardo, DO Status:REG RCR Location: History of Present Illness Date of Service: 01/08/23 Chief Complaint: right medial foot ulcer History of Wound: This 77-year-old male returns to the wound healing clinic for reoccurrence of a right medial foot ulcer. Wound care has been Moistened Cass covered with Goldthwaite SAP dressing. Patient diabetic neuropathic. Patient dealing [...] 14:53 01/08/23 13:37 Charges/Coding Procedures Integumentary 111xxx-113xx: 81702 Mihaela subq tissue 20 sq cm/< Debridement [...] Date Recorded By Document 12/18/22 13:20 PL [id number] 12/18/22 13:27 PL Document 12/25/22 14:53 DORA [id number] 12/25/22 14:54 DORA Document 01/08/23 13:37 [place] [id number] 01/08/23 13:39 [place] 12/18/22 12/25/22 01/08/23 13:20 14:53 13:37 - Today's Visit Information Type of service Follow-up Visit Follow-up Visit Follow-up Visit (Physician/DIRECTOR SPEECH LANGUAGE (Physician/DIRECTOR SPEECH LANGUAGE (Physician/DIRECTOR SPEECH LANGUAGE ) ) ) Arrival Mode Ambulatory Ambulatory [...] Date Recorded By Document 12/18/22 13:20 PL [id number] 12/18/22 13:27 PL Document 12/25/22 14:53 [id number] 12/25/22 14:54 JF Document 01/08/23 13:37 [place] [id number] 01/08/23 13:39 [place] 12/18/22 12/25/22 01/08/23 13:20 [...] (34-66%) Small (1-33%) Medium (34-66%) -Granulation Quality [place] Pale -Slough/Fibrin No Yes Yes -Necrosis Amt [...] Recorded Date Recorded By Document 12/18/22 13:51 [id number] 12/18/22 13:53 Document 12/25/22 15:00 [id number] 12/25/22 15:10 Document 01/08/23 14:01 [id number] 01/08/23 14:02 12/18/22 12/25/22 01/08/23 13:51 15:00 [...] Date Recorded By Document 12/18/22 14:07 PL [id number] 12/18/22 14:07 PL Document 12/25/22 15:20 DL [id number] 12/25/22 15:20 DL 12/18/22 12/25/22 14:07 15:20 [...] 1417 <Electronically signed by Bonny Glynn NP CHRONOMETER ADJUSTER-C> Cosigner Signature (if applicable): CC: ~ Signed [facility] Work Phone: 1(795) 109-284605-14-[address] Ochoa [facility] December 31, 2022 12:58am Note Date/Time December 30, 2022 11:[address] [facility] Medical Records Department [address] [place] [address] Emergency Department Summary 12/30/22 MR#: [id number] Acct: [id number] Name: PEDRO HILLMAN Rep #:[id number] : 1945 77 From: Chris Ochoa MD PCP: Dr. Tonio Fajardo, Status:REG ER Location: ED HPI History of [...] similar symptoms: Yes Recent Illness/Hospitalization: No [facility] Medical History Anemia Atherosclerosis of coronary artery of [place] heart without angina pectoris BPH (benign prostatic [...] extremities. Nontender. No edema. No cellulitis. 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 Normal dorsi plantarflexion. Neurologically is awake [...] 83.3 H Lymph % (Auto) 6.4 L Price % (Auto) 9.1 Eos % (Auto) 0.2 [...] Color Urine Clarity Urine pH Ur Specific [place] Urine Protein Urine Glucose (UA) Urine Ketones Urine Occult Blood Urine Nitrite Urine Bilirubin Urine Urobilinogen Ur Leukocyte Esterase Urine RBC Urine WBC Ur Squamous Epith Cells Urine Bacteria Urine Mucus 12/30/22 12/30/22 22:50 23:59 WBC RBC Hgb Hct MCV MCH MCHC RDW Std Deviation RDW Coeff of Reggie Plt Count MPV Immature Gran % (Auto) Neut % (Auto) Lymph % (Auto) Price % (Auto) Eos % (Auto) Baso % [...] Clarity Clear Urine pH 7.0 Ur Specific [place] 1.005 Urine Protein 100 H Urine Glucose [...] your Primary Care Provider. Call [facility] ([phone]) or report to the closest Emergency Room. Call 911 if necessary. 12/31/22 0058 <Electronically signed by Chris Ochoa MD> Cosigner Signature (if applicable): CC: Dr. Tonio Fajardo, ~ Signed [facility] Work Phone: 1(398) 597-225305-08-2023 Progress note Author Bonny Glynn [facility] December 25, 2022 3:36pm Note Date/Time December 25, 2022 3:36pm [facility] [address] [place] [address] Progress Note - Wound Care 12/25/22 1531 MR#: [id number] Acct: [id number] Name: KADYPEDRO Nora Rep #:[id number] : 1945 77 From: Bonny garcia CHRONOMETER ADJUSTER CHRONOMETER ADJUSTER-C PCP: Dr. Tonio Fajardo DO Status:REG RCR Location: History of Present Illness Date of Service: 12/25/22 Chief Complaint: right medial foot ulcer History of Wound: This 77-year-old male returns to the wound healing clinic for reoccurrence of a right medial foot ulcer. Wound care has been Moistened Cass covered with Goldthwaite SAP dressing. Patient diabetic neuropathic. Patient dealing [...] 14:53 12/25/22 14:53 Charges/Coding Procedures Integumentary 111xxx-113xx: 14610 Mihaela subq tissue 20 sq cm/< Debridement [...] Date Recorded By Document 12/18/22 13:20 PL [id number] 12/18/22 13:27 PL Document 12/25/22 14:53 [id number] 12/25/22 14:54 DORA 12/18/22 12/25/22 13:20 14:53 - Today's Visit Information Type of service Follow-up Visit Follow-up Visit (Physician/DIRECTOR SPEECH LANGUAGE (Physician/DIRECTOR SPEECH LANGUAGE ) ) Arrival Mode Ambulatory Ambulatory Transfer [...] Date Recorded By Document 12/18/22 13:20 KIM [id number] 12/18/22 13:27 KIM Document 12/25/22 14:53 DORA [id number] 12/25/22 14:54 DORA 12/18/22 12/25/22 13:20 14:53 Wound Center Nurse [...] Amt Medium (34-66%) Small (1-33%) -Granulation Quality [place] -Slough/Fibrin No Yes -Necrosis Amt Medium (34-66%) [...] Recorded Date Recorded By Document 12/18/22 13:51 [id number] 12/18/22 13:53 Document 12/25/22 15:00 [id number] 12/25/22 15:10 12/18/22 12/25/22 13:51 15:00 Wound [...] Date Recorded By Document 12/18/22 14:07 PL [id number] 12/18/22 14:07 PL Document 12/25/22 15:20 DL [id number] 12/25/22 15:20 DL 12/18/22 12/25/22 14:07 15:20 [...] 1536 <Electronically signed by Bonny Glynn NP CHRONOMETER ADJUSTER-C> Cosigner Signature (if applicable): CC: ~ Signed [facility] Work Phone: 1(930) 567-420105-01-2023 Progress note Author Bonny Glynn [facility] December 18, 2022 2:23pm Note Date/Time December 18, 2022 2:23pm [facility] [address] [place] [address] Progress Note - Wound Care 12/18/22 1419 MR#: [id number] Acct: [id number] Name: PEDRO HILLMAN Rep #:[id number] : 1945 77 From: Bonny garcia CHRONOMETER ADJUSTER CHRONOMETER ADJUSTER-C PCP: Dr. Tonio Fajardo, DO Status:REG RCR Location: History of Present Illness Date of Service: 12/18/22 Chief Complaint: right medial foot ulcer History of Wound: This 77-year-old male returns to the wound healing clinic for reoccurrence of a right medial foot ulcer. Wound care has been Moistened Cass covered with Goldthwaite SAP dressing. Patient diabetic neuropathic. Patient dealing [...] 13:20 12/18/22 13:20 Charges/Coding Procedures Integumentary 111xxx-113xx: 36850 Mihaela subq tissue 20 sq cm/< Debridement [...] Recorded Date Recorded By Document 12/18/22 13:20 [id number] 12/18/22 13:27 12/18/22 13:20 - Today's Visit Information Type of service Follow-up Visit (Physician/DIRECTOR SPEECH LANGUAGE ) Arrival Mode Ambulatory Transfer Assistance None [...] Date Recorded By Document 12/18/22 13:20 KIM [id number] 12/18/22 13:27 12/18/22 13:20 Wound Center Nurse 1 #9 Right Inferior Hallux -Combined with other wound No -Current Size (cm) - Length 0.1 -Current Size (cm) - Width 0.1 -Current Size (cm) - Depth 0.1 -Total Square Cm 0.01 -Photo Taken No -Epithelialization Medium 34-66% -Tunneling No -Undermining/Tunneling No -Circular Undermining No -Exudate Amt Small -Exudate Type Serosanguineous -Granulation Amt Medium (34-66%) -Granulation Quality [place] -Slough/Fibrin No -Necrosis Amt Medium (34-66%) -Necrotic [...] Recorded Date Recorded By Document 12/18/22 13:51 [id number] 12/18/22 13:53 DORA 12/18/22 13:51 Wound Center [...] Patient Pain Free? Yes URBAN - Nurse 3 - General Ulcer D/C NN Start: 12/18/22 13:18 Freq: Status: Active Protocol: Activity Type Activity Date Activity User E-sign Co-sign Detail Recorded Client Recorded Date Recorded By Document 12/18/22 14:07 PL [id number] 12/18/22 14:07 PL 12/18/22 14:07 Wound Care [...] 1423 <Electronically signed by Bonny Glynn NP CHRONOMETER ADJUSTER-C> Cosigner Signature (if applicable): CC: ~ Signed [facility] Work Phone: [phone]) [phone] Progress note Author Bonny Glynn [facility] December 14, 2022 2:56pm Note Date/Time December 11, 2022 3:[address] [facility] [address] [place] [address] Progress Note - Wound Care 12/11/22 1527 MR#: [id number] Acct: [id number] Name: PEDRO HILLMAN Rep #:[id number] : 1945 77 From: Bonny garcia CHRONOMETER ADJUSTER CHRONOMETER ADJUSTER-C PCP: Dr. Tonio Fajardo, DO Status:REG RCR Location: History of Present Illness Date of Service: 12/11/22 Chief Complaint: right medial foot ulcer History of Wound: This 77-year-old male returns to the wound healing clinic for reoccurrence of a right medial foot ulcer. Wound care has been Moistened Cass covered with Goldthwaite SAP dressing. Patient diabetic neuropathic. Patient dealing [...] Method Room Air Charges/Coding Procedures Integumentary 111xxx-113xx: 68779 Mihaela subq tissue 20 sq cm/< Debridement [...] Start: 11/20/22 14:43 Freq: Status: Active Protocol: WC.LOWEXT Activity Type Activity Date Activity User E-sign Co-sign Detail Recorded Client Recorded Date Recorded By Document 11/20/22 14:43 DL [id number] 11/20/22 14:49 DL Document 11/27/22 14:25 BMF [id number] 11/27/22 14:27 BMF Document 12/06/22 11:35 DL [id number] 12/06/22 11:39 DL Document 12/11/22 13:12 BMF [id number] 12/11/22 13:21 BMF 11/20/22 11/27/22 12/06/22 14:43 14:25 11:35 - Today's Visit Information Type of service Follow-up Visit Follow-up Visit (Physician/DIRECTOR SPEECH LANGUAGE (Physician/DIRECTOR SPEECH LANGUAGE ) ) Arrival Mode Ambulatory,Cane Ambulatory Transfer [...] Visit Information Type of service Follow-up Visit (Physician/DIRECTOR SPEECH LANGUAGE ) Arrival Mode Ambulatory,Cane Transfer Assistance None [...] Date Recorded By Document 11/20/22 14:43 DL [id number] 11/20/22 14:49 DL Document 11/27/22 14:25 [facility] [id number] 11/27/22 14:27 BMF Document 12/06/22 11:35 DL [id number] 12/06/22 11:39 DL Document 12/11/22 13:12 [facility] [id number] 12/11/22 13:21 BMF 11/20/22 11/27/22 12/06/22 14:43 [...] Amt Small (1-33%) Small (1-33%) -Granulation Quality [place] Pale -Slough/Fibrin -Necrosis Amt Small (1-33%) Small [...] Recorded Date Recorded By Document 11/20/22 15:00 [id number] 11/20/22 15:09 Edit Result 11/20/22 15:00 (1) [id number] 11/20/22 15:18 JF Edit Result 11/20/22 15:00 (2) [id number] 11/20/22 15:20 Document 11/27/22 14:50 [id number] 11/27/22 15:02 Document 12/06/22 11:46 [id number] 12/06/22 11:57 Document 12/11/22 13:30 [id number] 12/11/22 13:33 (1) #9 Right Inferior Hallux [...] => 08/20/27 - Product Lot Number => [id number] - Percent Used => 100 - Lot number of Saline Used => [id number] 11/20/22 11/27/22 12/06/22 15:00 14:50 11:46 Wound [...] Date 08/20/27 08/20/27 09/20/27 -Product Lot Number [id number] -Percent Used 100 100 100 -Lot number of Saline Used [id number] -Bleeding Controlled with Pressure Pressure Pressure -Treatment [...] Date Recorded By Document 11/20/22 15:35 DL [id number] 11/20/22 15:36 DL Document 11/27/22 15:02 JF [id number] 11/27/22 15:03 JF Document 12/06/22 11:57 JF [id number] 12/06/22 11:58 JF Document 12/11/22 13:57 DL [id number] 12/11/22 13:58 DL 11/20/22 11/27/22 12/06/22 15:35 [...] if develop any questions or concerns. 12/14/22 7915 <Electronically signed by Bonny Glynn NP CHRONOMETER ADJUSTER-C> Cosigner Signature (if applicable): CC: ~ Signed [facility] Work Phone: 1(682) 710-609404-19-2023 Progress note Author Bonnyparris Glynn [facility] December 06, 2022 12:09pm Note Date/Time December 06, 2022 12: 09pm [facility] [address] [place] [address] Progress Note - Wound Care 12/06/22 1205 MR#: [id number] Acct: [id number] Name: PEDRO HILLMAN Rep #:[id number] : 1945 77 From: Bonny garcia NP CHRONOMETER ADJUSTER-C PCP: Dr. Tonio Fajardo, DO Status:REG RCR Location: History of Present Illness Date of Service: 12/06/22 Chief Complaint: right medial foot ulcer History of Wound: This 77-year-old male returns to the wound healing clinic for reoccurrence of a right medial foot ulcer. Wound care has been Moistened Cass covered with Goldthwaite SAP dressing. Patient diabetic neuropathic. Patient dealing [...] 11:35 12/06/22 11:35 Charges/Coding Procedures Integumentary 150xxx-152xx: 24814 Skin sub graft face/nk/hf/g Debridement Note Debridement [...] Date Recorded By Document 11/20/22 14:43 DL [id number] 11/20/22 14:49 DL Document 11/27/22 14:25 [facility] [id number] 11/27/22 14:27 BM Document 12/06/22 11:35 DL [id number] 12/06/22 11:39 DL 11/20/22 11/27/22 12/06/22 14:43 14:25 11:35 - Today's Visit Information Type of service Follow-up Visit Follow-up Visit (Physician/DIRECTOR SPEECH LANGUAGE (Physician/DIRECTOR SPEECH LANGUAGE ) ) Arrival Mode Ambulatory,Cane Ambulatory Transfer [...] Date Recorded By Document 11/20/22 14:43 DL [id number] 11/20/22 14:49 DL Document 11/27/22 14:25 BMF [id number] 11/27/22 14:27 BMF Document 12/06/22 11:35 DL [id number] 12/06/22 11:39 DL 11/20/22 11/27/22 12/06/22 14:43 [...] Amt Small (1-33%) Small (1-33%) -Granulation Quality [place] Pale -Necrosis Amt Small (1-33%) Small (1-33%) [...] Date Recorded By Document 11/20/22 15:00 DORA [id number] 11/20/22 15:09 JF Edit Result 11/20/22 15:00 JF (1) [id number] 11/20/22 15:18 JF Edit Result 11/20/22 15:00 JF (2) [id number] 11/20/22 15:20 JF Document 11/27/22 14:50 JF [id number] 11/27/22 15:02 JF Document 12/06/22 11:46 [id number] 12/06/22 11:57 (1) #9 Right Inferior Hallux [...] => 08/20/27 - Product Lot Number => [id number] - Percent Used => 100 - Lot number of Saline Used => [id number] 11/20/22 11/27/22 12/06/22 15:00 14:50 11:46 Wound [...] Date 08/20/27 08/20/27 09/20/27 -Product Lot Number [id number] -Percent Used 100 100 100 -Lot number of Saline Used [id number] -Bleeding Controlled with Pressure Pressure Pressure -Treatment [...] Recorded Date Recorded By Document 11/20/22 15:35 [id number] 11/20/22 15:36 Document 11/27/22 15:02 [id number] 11/27/22 15:03 Document 12/06/22 11:57 [id number] 12/06/22 11:58 11/20/22 11/27/22 12/06/22 15:35 15:02 [...] 1209 <Electronically signed by Bonny Glynn NP CHRONOMETER ADJUSTER-C> Cosigner Signature (if applicable): CC: ~ Signed [facility] Work Phone: 1(161) 625-877404-11-2023 Progress note Author Bonny Glynn [facility] November 28, 2022 5:24pm Note Date/Time November 27, 2022 3:[address] [facility] [address] [place] [address] Progress Note - Wound Care 11/27/22 1513 MR#: [id number] Acct: [id number] Name: PEDRO HILLMAN Rep #:[id number] : 1945 77 From: Bonny garcia NP CHRONOMETER ADJUSTER-C PCP: Dr. Tonio Fajardo, DO Status:REG RCR Location: History of Present Illness Date of Service: 11/27/22 Chief Complaint: right medial foot ulcer History of Wound: This 77-year-old male returns to the wound healing clinic for reoccurrence of a right medial foot ulcer. Wound care has been Moistened Cass covered with Goldthwaite SAP dressing. Patient diabetic neuropathic. Patient dealing [...] 14:43 11/27/22 14:25 Charges/Coding Procedures Integumentary 150xxx-152xx: 01226 Skin sub graft face/nk/hf/g Debridement Note Debridement [...] Date Recorded By Document 11/20/22 14:43 DL [id number] 11/20/22 14:49 DL Document 11/27/22 14:25 [facility] [id number] 11/27/22 14:27 BM 11/20/22 11/27/22 14:43 14:25 - Today's Visit Information Type of service Follow-up Visit Follow-up Visit (Physician/DIRECTOR SPEECH LANGUAGE (Physician/DIRECTOR SPEECH LANGUAGE ) ) Arrival Mode Ambulatory,Cane Ambulatory Transfer [...] Date Recorded By Document 11/20/22 14:43 DL [id number] 11/20/22 14:49 DL Document 11/27/22 14:25 BM [id number] 11/27/22 14:27 BMF 11/20/22 11/27/22 14:43 14:25 [...] Thickened -Granulation Amt Small (1-33%) -Granulation Quality [place] -Necrosis Amt Small (1-33%) -Necrotic Tissue Type Adherent Slough -Structure Exposed N/A -Texture (Nana-wound Skin Appearance) Callus,Scarring Assessed, Scarring -Moisture (Anna-wound [...] Recorded Date Recorded By Document 11/20/22 15:00 [id number] 11/20/22 15:09 Edit Result 11/20/22 15:00 JF (1) [id number] 11/20/22 15:18 JF Edit Result 11/20/22 15:00 JF (2) [id number] 11/20/22 15:20 JF Document 11/27/22 14:50 [id number] 11/27/22 15:02 (1) #9 Right Inferior Hallux - Post [...] => 08/20/27 - Product Lot Number => [id number] - Percent Used => 100 - Lot number of Saline Used => [id number] 11/20/22 11/27/22 15:00 14:50 Wound Center Nurse [...] -Expiration Date 08/20/27 08/20/27 -Product Lot Number [id number] -Percent Used 100 100 -Lot number of Saline Used [id number] -Bleeding Controlled with Pressure Pressure -Treatment Response [...] Recorded Date Recorded By Document 11/20/22 15:35 [id number] 11/20/22 15:36 DL Document 11/27/22 15:02 [id number] 11/27/22 15:03 11/20/22 11/27/22 15:35 15:02 Wound Care Center [...] 1724 <Electronically signed by Bonny Glynn NP CHRONOMETER ADJUSTER-C> Cosigner Signature (if applicable): CC: ~ Signed [facility] Work Phone: 1(362) 158-541504-10-2023 Progress note Author Bonny Glynn [facility] November 26, 2022 10:29pm Note Date/Time November 20, 2022 4:[address] [facility] [place] [address] Progress Note - Wound Care 11/20/22 1618 MR#: [id number] Acct: [id number] Name: PEDRO HILLMAN Rep #:[id number] : 1945 77 From: Bonny Gillis CHRONOMETER ADJUSTER CHRONOMETER ADJUSTER-C PCP: Dr. Tonio Fjaardo, DO Status:REG RCR Location: History of Present Illness Date of Service: 11/20/22 Chief Complaint: right medial foot ulcer History of Wound: This 77-year-old male returns to the wound healing clinic for reoccurrence of a right medial foot ulcer. Wound care has been Moistened Cass covered with Goldthwaite SAP dressing. Patient diabetic neuropathic. Patient dealing [...] 14:43 11/20/22 14:43 Charges/Coding Procedures Integumentary 150xxx-152xx: 82835 Skin sub graft face/nk/hf/g Debridement Note Debridement [...] Date Recorded By Document 11/20/22 14:43 DL [id number] 11/20/22 14:49 DL 11/20/22 14:43 WC - Today's Visit Information Type of service Follow-up Visit (Physician/DIRECTOR SPEECH LANGUAGE ) Arrival Mode Ambulatory,Cane Transfer Assistance None [...] Date Recorded By Document 11/20/22 14:43 DL [id number] 11/20/22 14:49 DL 11/20/22 14:43 Wound Center Nurse 1 #9 Right Inferior Hallux -Current Size (cm) - Length 0.2 -Current Size (cm) - Width 0.3 -Current Size (cm) - Depth 0.2 -Total Square Cm 0.06 -Photo Taken No -Exudate Amt Small -Exudate Type Serosanguineous -Wound Margin Thickened -Granulation Amt Small (1-33%) -Granulation Quality [place] -Necrosis Amt Small (1-33%) -Necrotic Tissue Type [...] Date Recorded By Document 11/20/22 15:00 JF [id number] 11/20/22 15:09 JF Edit Result 11/20/22 15:00 JF (1) [id number] 11/20/22 15:18 JF Edit Result 11/20/22 15:00 JF (2) [id number] 11/20/22 15:20 JF (1) #9 Right Inferior [...] => 08/20/27 - Product Lot Number => [id number] - Percent Used => 100 - Lot number of Saline Used => [id number] 11/20/22 15:00 Wound Center Nurse 2 -Time [...] Disc -Expiration Date 08/20/27 -Product Lot Number [id number] -Percent Used 100 -Lot number of Saline Used [id number] -Bleeding Controlled with Pressure -Treatment Response Procedure [...] Date Recorded By Document 11/20/22 15:35 DL [id number] 11/20/22 15:36 DL 11/20/22 15:35 Wound Care [...] 11/26/222228 <Electronically signed by Bonny Glynn NP CHRONOMETER ADJUSTER-C> Cosigner Signature (if applicable): CC: ~ Signed [facility] Work Phone: 1(511) 299-703102-21-2023 Progress note Author Bonny Glynn [facility] October 10, 2022 3:29pm Note Date/Time October 09, 2022 4:10pm [facility] [address] [place] [address] Progress Note - Wound Care 10/09/22 1609 MR#: [id number] Acct: [id number] Name: PEDRO HILLMAN Rep #:[id number] : 1945 77 From: Bonny garcia CHRONOMETER ADJUSTER CHRONOMETER ADJUSTER-C PCP: Dr. Tonio Fajardo, DO Status:REG RCR Location: History of Present Illness Date of Service: 10/09/22 Chief Complaint: right foot ulcer History of Wound: This 77-year-old male returns to the wound healing clinic for reoccurrence of a right medial foot ulcer. Wound care has been Moistened Cass covered with Goldthwaite SAP dressing. Patient diabetic neuropathic. Patient dealing [...] Method Room Air Charges/Coding Procedures Integumentary 150xxx-152xx: 72290 Skin sub graft face/nk/hf/g Debridement Note Debridement [...] Date Recorded By Document 09/25/22 14:25 BMF [id number] 09/25/22 14:32 BMF Document 10/02/22 13:28 ML [id number] 10/02/22 13:32 ML Document 10/09/22 12:59 DL [id number] 10/09/22 13:04 DL 09/25/22 10/02/22 10/09/22 14:25 13:28 12:59 WC - Today's Visit Information Type of service Follow-up Visit Follow-up Visit Follow-up Visit (Physician/DIRECTOR SPEECH LANGUAGE (Physician/DIRECTOR SPEECH LANGUAGE (Physician/DIRECTOR SPEECH LANGUAGE ) ) ) Arrival Mode Ambulatory,Cane Cane [...] Date Recorded By Document 09/25/22 14:25 BMF [id number] 09/25/22 14:32 BMF Document 10/02/22 13:28 ML [id number] 10/02/22 13:32 ML Document 10/09/22 12:59 DL [id number] 10/09/22 13:04 DL 09/25/22 10/02/22 10/09/22 14:25 [...] (0 Large (67-100%) %) -Granulation Quality Red [place] -Slough/Fibrin Yes Yes -Necrosis Amt Small (1-33%) [...] Recorded Date Recorded By Document 09/25/22 14:42 [id number] 09/25/22 14:51 Document 10/02/22 14:14 [id number] 10/02/22 14:17 Document 10/09/22 13:17 [id number] 10/09/22 13:26 09/25/22 10/02/22 10/09/22 14:42 14:14 [...] Date 06/20/27 05/20/27 06/20/27 -Product Lot Number [id number] 026 -Percent Used 100 100 100 -Lot number of Saline Used [id number] -Bleeding Controlled with Pressure Pressure Pressure -Treatment [...] Recorded Date Recorded By Document 09/25/22 14:52 [id number] 09/25/22 14:53 Document 10/02/22 14:18 [id number] 10/02/22 14:19 09/25/22 10/02/22 14:52 14:18 Wound [...] positive for Staphylococcus epidermidis and 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 I spoke with his PCP, Dr Fajardo, who was made aware of the results and he said he would treat him from these results. Follow up one week. 10/10/22 1529 <Electronically signed by Bonny Glynn NP CHRONOMETER ADJUSTER-C> Cosigner Signature (if applicable): CC: ~ Signed [facility] Work Phone: 1(561) 774-796102-14-2023 Progress note Author Bonny Glynn [facility] October 03, 2022 4:51pm Note Date/Time September 26, 2022 1 :17pm [facility] [address] [place] [address] Progress Note - Wound Care 09/25/22 1501 MR#: [id number] Acct: [id number] Name: PEDRO HILLMAN Nora Rep #:[id number] : 1945 77 From: Bonny garcia NP CHRONOMETER ADJUSTER-C PCP: Dr. Tonio Fajardo, DO Status:REG RCR Location: ADDENDUM by CHRONOMETER ADJUSTERShaggy Glynn on 10/03/22 at 1651 [place] [address] Procedures Integumentary 150xxx-152xx: 09659 Skin sub graft face/nk/hf/g 10/03/22 1651<Electronically signed by Bonny Glynn NP CHRONOMETER ADJUSTER-C> Cosigner Signature (if applicable): cc: ~* Signed History of Present Illness Date of Service: 09/25/22 Chief Complaint: right foot ulcer History of Wound: This 77-year-old male returns to the wound healing clinic for reoccurrence of a right medial foot ulcer. Wound care has been Moistened Cass covered with Goldthwaite SAP dressing. Patient diabetic neuropathic. Patient dealing [...] Method Room Air Charges/Coding Procedures Integumentary 150xxx-152xx: 02206 Skin sub graft trnk/arm/leg Debridement Note Debridement [...] Recorded Date Recorded By Document 09/25/22 14:25 [facility] [id number] 09/25/22 14:32 [facility] 09/25/22 14:25 - Today's Visit Information Type of service Follow-up Visit (Physician/DIRECTOR SPEECH LANGUAGE ) Arrival Mode Ambulatory,Cane Transfer Assistance None [...] Recorded Date Recorded By Document 09/25/22 14:25 [facility] [id number] 09/25/22 14:32 [facility] 09/25/22 14:25 Wound Center Nurse 1 #9 [...] Date Recorded By Document 09/25/22 14:42 DORA [id number] 09/25/22 14:51 DORA 09/25/22 14:42 Wound Center [...] Disc -Expiration Date 06/20/27 -Product Lot Number [id number] -Percent Used 100 -Lot number of Saline Used [id number] -Bleeding Controlled with Pressure -Treatment Response Procedure [...] Date Recorded By Document 09/25/22 14:52 DORA [id number] 09/25/22 14:53 DORA 09/25/22 14:52 Wound Care [...] 1317 <Electronically signed by Bonny Glynn NP CHRONOMETER ADJUSTER-C> Cosigner Signature (if applicable): CC: ~ Signed [facility] Work Phone: 1(880) 725-472902-14-2023 Progress note Author Bonny Glynn [facility] October 03, 2022 4:49pm Note Date/Time October 02, 2022 2:57pm [facility] [address] [place] [address] Progress Note - Wound Care 10/02/22 1457 MR#: [id number] Acct: [id number] Name: PEDRO HILLMAN Rep #:[id number] : 1945 77 From: Bonny garcia CHRONOMETER ADJUSTER CHRONOMETER ADJUSTER-C PCP: Dr. Tonio Fajardo, DO Status:REG RCR Location: History of Present Illness Date of Service: 10/02/22 Chief Complaint: right foot ulcer History of Wound: This 77-year-old male returns to the wound healing clinic for reoccurrence of a right medial foot ulcer. Wound care has been Moistened Cass covered with Goldthwaite SAP dressing. Patient diabetic neuropathic. Patient dealing [...] Charges/Coding Visit Charges Office Visits / Consults: 61319 OV L3 Est (25 modifier) Procedures Integumentary 150xxx-152xx: 85953 Skin sub graft face/nk/hf/g Physical Exam Const [...] Date Recorded By Document 09/25/22 14:25 BMF [id number] 09/25/22 14:32 BMF Document 10/02/22 13:28 ML [id number] 10/02/22 13:32 ML 09/25/22 10/02/22 14:25 13:28 - Today's Visit Information Type of service Follow-up Visit Follow-up Visit (Physician/DIRECTOR SPEECH LANGUAGE (Physician/DIRECTOR SPEECH LANGUAGE ) ) Arrival Mode Ambulatory,Cane Cane Transfer [...] Recorded Date Recorded By Document 09/25/22 14:25 [facility] [id number] 09/25/22 14:32 BM Document 10/02/22 13:28 ML [id number] 10/02/22 13:32 ML 09/25/22 10/02/22 14:25 13:28 [...] Recorded Date Recorded By Document 09/25/22 14:42 [id number] 09/25/22 14:51 Document 10/02/22 14:14 [id number] 10/02/22 14:17 09/25/22 10/02/22 14:42 14:14 Wound [...] -Expiration Date 06/20/27 05/20/27 -Product Lot Number [id number] -Percent Used 100 100 -Lot number of Saline Used [id number] -Bleeding Controlled with Pressure Pressure -Treatment Response [...] Recorded Date Recorded By Document 09/25/22 14:52 [id number] 09/25/22 14:53 Document 10/02/22 14:18 [id number] 10/02/22 14:19 09/25/22 10/02/22 14:52 14:18 Wound [...] they should go to the ED. 10/03/22 2817 <Electronically signed by Bonny Glynn NP CHRONOMETER ADJUSTER-C> Cosigner Signature (if applicable): CC: ~ Signed [facility] Work Phone: 1(408) 915-907701-10-2023 Progress note Author Bonny [facility] August 29, 2022 3:36pm Note Date/Time August 29, 2022 2 :32pm [facility] [address] [place] [address] Progress Note - Wound Care 08/29/22 1429 MR#: [id number] Acct: [id number] Name: PEDRO HILLMAN Rep #:[id number] : 1945 77 From: Bonny Gillis CHRONOMETER ADJUSTER CHRONOMETER ADJUSTER-C PCP: Dr. Tonio Fajardo, DO Status:REG RCR Location: History of Present Illness Date of Service: 08/29/22 Chief Complaint: right foot ulcer History of Wound: This 77-year-old male returns to the wound healing clinic for reoccurrence of a right medial foot ulcer. Wound care has been Moistened Cass covered with Goldthwaite SAP dressing. Patient diabetic neuropathic. Patient dealing [...] Method Room Air Charges/Coding Procedures Integumentary 111xxx-113xx: 60591 Mihaela subq tissue 20 sq cm/< Debridement [...] Start: 08/29/22 13:15 Freq: Status: Active Protocol: .LOWPAT[place]ICA Activity Type Activity Date Activity User E-sign Co-sign Detail Recorded Client Recorded Date Recorded By Document 08/29/22 13:17 [facility] [id number] 08/29/22 13:22 [facility] 08/29/22 13:17 - Today's Visit Information Type of service Follow-up Visit (Physician/DIRECTOR SPEECH LANGUAGE ) Arrival Mode Ambulatory,Cane Transfer Assistance None [...] Recorded Date Recorded By Document 08/29/22 13:17 [facility] [id number] 08/29/22 13:22 [facility] 08/29/22 13:17 Wound Center Nurse 1 #9 [...] Recorded Date Recorded By Document 08/29/22 13:35 [id number] 08/29/22 13:40 08/29/22 13:35 Wound Center Nurse 2 -Time [...] Recorded Date Recorded By Document 08/29/22 13:47 [id number] 08/29/22 13:47 DL 08/29/22 13:47 Wound Care [...] help expedite wound healing. [facility] Epifix. Wound care - Silvercel as the primary dressing covered with Goldthwaite SAP (secondarydressing) daily after washing foot with [...] if develop any questions or concerns. 08/29/22 1006 <Electronically signed by Bonny Glynn NP CHRONOMETER ADJUSTER-C> Cosigner Signature (if applicable): CC: ~ Signed [facility] Work Phone: 1(890) 388-417512-16-2022 Miscellaneous Notes* Telephone Encounter - Liseth Ortiz Ma - 08/04/2022 9:59 AM EST Pt PCP outside [facility]. Call to pt and notified him of Providers message. Pt states that he did talk tohim. FYI. Liseth Ortiz Ma * Telephone Encounter - Jessie Rodriguez APRN.SHANI - 07/28/2022 1:43 PM EST In reviewing patient's chart I do not see that he has had any follow up done in regards to his actionable chest xray finding. I left a message on patient's voicemail for him to call back and advise. Jesise Rodriguez APRN.SHANI documented in [facility] Miscellaneous Notes* Telephone Encounter - Ashley Mock - 04/08/2022 2:56 PM EDT Notified pt of results, daughter will call to get information on restrictions. Ashley Mock * Telephone Encounter - Ashley Mock - 04/08/2022 9:18 AM EDT left message on machine to give call back, different number from pharmacy. [phone]. Ashley Mock * Telephone Encounter - Ashley Mock - 04/07/2022 5:48 PM EDT Unable to reach patient. Mailbox full/Mailbox not set up/ Number incorrect. Please try again later. Ashley Mock * Telephone Encounter - Sigrid Monroe LPN - 04/06/2022 6:48 PM EDT Still unable to reach patient and handyperson is spouse with same number.Sigrid Monroe LPN [...] symptoms; ER if severe. documented in this encounterLake [facility]08-17-2022 NoteHNO ID: [id number] Author: Jessie Rodriguez APRN.DIRECTOR SPEECH LANGUAGE Service: ? Author Type: Nurse Practitioner Type: [...] Z20.822 - COVID WITH FLUA+B, ROUTINE Jessie Praisler-Wood, AIR CARRIER MAINTENANCE INSPECTOR.[facility]08-[facility]-2022 NoteHNO ID: [id number] Author: RT Jose Eduardo(R) Service: Nuclear Medicine [...] RT Jose Eduardo(R) April 05, 2022 1:55 [facility]08-17-2022 Influenza virus A and B RNA and SARS-CoV-2 (COVID-19) N gene panel BYRAN+probe (Resp)COVID 19 RESULT: SARS-CoV-2 (Agent of COVID-19) Detected by RT-PCR or equivalent method. anatoly DKHI-PnY-3_[employer] (YASMEEN)_EUA This test was developed and its performance characteristics determined by [facility] [place]. This test has been authorized by FDA under an Emergency Use Authorization (EUA). This test has been validated in accordance with the FDA's Guidance Document Policy for DiagnosticsTesting in Laboratories Certified to Perform High Complexity Testing under CLIA prior to Emergency use Authorization for Coronavirus Disease 2019 during the Public Health Emergency issued on October 18, 2019. Test performed by [facility], [facility] [place], [address] [place] [address]. INFLUENZA A PCR: Negative for Influenza A by RT-PCR INFLUENZA B PCR: Negative for Influenza B by [facility]-PCRMer[facility] on above: Performed By: #### [id number] #### [facility] CLIA [id number] [address] [place] [address] [id number] Miscellaneous Notes* Telephone Encounter - Jessie Rodriguez APRN.CNP - 04/05/2022 2:58 PM EDT Radiology report faxed to patient's PCP Dr. Tonio Fajardo at [phone]. Confirmation of fax received. Patient was advised to call Dr. Fajardo today for a follow up appointment. Jessie Rodriguez APRN.CNP documented in this encounterLake [facility]08-17-2022 Instructions* Patient Instructions* Jessie Rodriguez APRN.CNP - [...] - COVID WITH FLUA+B, ROUTINE Jessie Rodriguez APRN.DIRECTOR SPEECH LANGUAGE documented in this encounterLake [facility]08-17-2022 History of Present illness Narrative* Jessie Rodriguez APRN.SHANI - 04/05/2022 2:03 PM EDT Subjective HPI [...] ROUTINE Jessie Rodriguez APRN.SHANI documented in this encounterLake [facility]08-17-2022 History of Present illness Narrative* Yuliana Olivera [...] 05, 2022 1:55 PM documented in [facility]Park[facility] note Author Mala Diamond [facility] Note Date/Time March 09, 2025 2:58 pm [facility] Medical Records Department [address] [place] [address] Counseling Note - Pharmacy 03/09/25 1457 MR#: [id number] Acct: [id number] Name: PEDRO HILLMAN Rep #:[id number] : 1945 80 From: Mala Diamond PCP: Dr. Tonio Fajardo, DO Status:ADM IN Location: [place] [address] [facility] Counseling Pharmacy Service has performed discharge medication [...] DAILY@1730 30 days #30 caps 03/09/25 03/09/25 9298 <Electronically signed by Mala Diamond> Date _ Mala Diamond Cosigner Signature (if applicable): Date CC: ~ Signed 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 Work Phone: Evaluation note* Diagnosis Onset [...] right foot with fat layer exposed resolved [facility] Work Phone: Evaluation note* Diagnosis Onset [...] right foot with fat layer exposed resolved [facility] Work Phone: Evaluation note* Diagnosis Onset [...] 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 [facility] Work Phone: Evaluation note* Diagnosis Onset [...] right foot with fat layer exposed resolved [facility] Work Phone: Evaluation note* Diagnosis Burning with urination- Primary Dysuria Acute cough Suspected COVID-19 virus infection documented in this encounter [facility]* Diagnosis Onset Date Resolution Status Localized [...] acute Nicotine dependence, cigarettes, in remission acute [facility] Work Phone: Evaluation note* Diagnosis Onset [...] right foot with fat layer exposed resolved [facility] Work Phone: Evaluation note* Diagnosis Onset [...] right foot with fat layer exposed resolved [facility] Work Phone: Evaluation note* Diagnosis Onset [...] of upper lobe of right lung acute [facility] Work Phone: Evaluation note* Diagnosis Onset [...] of upper lobe of right lung acute [facility] Work Phone: Evaluation note* Diagnosis Onset [...] of upper lobe of right lung acute [facility] Work Phone: Evaluation note* Diagnosis Onset [...] chronic Presence of aortocoronary bypass graft 2012 [facility] Work Phone: Evaluation note* Diagnosis Onset [...] right foot with fat layer exposed chronic [facility] Work Phone: Evaluation note* Diagnosis Onset [...] right foot with fat layer exposed chronic [facility] Work Phone: Evaluation note* Diagnosis Onset [...] layer exposed chronic Shortness of breath chronic [facility] Work Phone: Evaluation note* Diagnosis Onset [...] of upper lobe of right lung chronic [facility] Work Phone: Evaluation note* Diagnosis Onset [...] of upper lobe of right lung chronic [facility] Work Phone: Evaluation note* Diagnosis Onset [...] right foot with fat layer exposed chronic [facility] Work Phone: Evaluation note* Diagnosis Onset [...] right foot with fat layer exposed chronic [facility] Work Phone: Evaluation note* Diagnosis Onset [...] right foot with fat layer exposed chronic [facility] Work Phone: Evaluation note* Diagnosis Onset [...] right foot with fat layer exposed chronic [facility] Work Phone: Evaluation note* Diagnosis Onset [...] right foot with fat layer exposed chronic [facility] Work Phone: Evaluation note* Diagnosis Onset [...] right foot with fat layer exposed resolved [facility] Work Phone: Evaluation note* Diagnosis Onset [...] right foot with fat layer exposed chronic [facility] Work Phone: Evaluation note* Diagnosis Onset [...] of upper lobe of right lung chronic 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 Work Phone: Evaluation note* Diagnosis Onset [...] of upper lobe of right lung chronic [facility] Work Phone: Evaluation note* Diagnosis Acute cough [facility] Dis[facility] instructions Additional Instructions Tylenol for fever. Plenty of fluids and rest today do not get dehydrated. Return if you are feeling a lot worse or too weak to get around her house. Follow-up with your doctor in the next several days to ensure you are improving. [facility] Work Phone: Hospital Discharge instructions Additional Instructions 1. Keep your postoperative dressing clean dry and intact 2. Continue strict glycemic control. 3. Partial weightbearing to heel with surgical shoe, use walker or crutches 4. Reach out to Dr. Suárez with any questions or concerns and follow-up in 1 week in clinic. [facility]: Reason for referral (narrative)No reason for referral information [facility]WT[facility] Work Phone: Chief Complaint and Reason [...] 04 7:57pm Atherosclerosis of coronary artery of [place] heart without angina pectoris March 04, 2025 [...] 04 7:57pm Peripheral arterial disease March 04, 025 7:57pm Pleural effusion on right March 04 7:57pm Tricuspid valve regurgitation March 04, 2025 7:57pm Acute on chronic diastolic congestive he art failure March 04, 2025 7:57pm Atherosclerosis of coronary artery of [place] heart without angina pectoris March 04, 2025 7:57pm CHF exacerbation March 04, 2025 7:57 pm Hypertension March 04, 2025 7:57 pm Chief Complaint [...] AND HOMA VATED March 09, 2025 12:51pm nosebleed March 15, 2025 4:56 pm Chief Complaint Admit Date AE CHF, [...] AND HOMA VATED March 09, 2025 12:51pm nosebleed March 15, 2025 4:56 pm 6 M FU/S/P [facility] 03/09March 17, 2025 12: 51pm Reason for Visit Admit Date Acute cystitis [...] March 04 7:57pm Other persistent atrial fibrillation Feb 7:57pm Overweight (BMI 25.0-29.9) March 04 7:57pm Pleural effusion on right March 04 7:57pm Tricuspid valve regurgitation March 04, 2025 7:57pm Acute on chronic diastolic congestive he art failure March 04, 2025 7:57pm Atherosclerosis of coronary artery of [place] heart without angina pectoris March 04, 2025 7:57pm CHF exacerbation March 04, 2025 7:57 pm Hypertension March 04, 2025 7:57 pm Peripheral arterial disease March 04, 7:57pm Other persistent atrial fibrillation Feb 12:51pm Hyperlipidemia March 17, 2025 12:5 1pm Hypertension March 17, 2025 12:5 1pm Peripheral vascular occlusive disease Ju ly 2024 12:51pm Presence of aortocoronary bypass graft J shanda 2024 12:51pm Chief Complaint Admit Date AE CHF, ATRIAL [...] AND HOMA VATED March 09, 2025 12:51pm nosebleed March 15, 2025 4:56 pm 6 M FU/S/P [facility] 03/09March 17, 2025 12: 51pm atrial fibrillation March 27, 2025 8:3 7am Advance Directives No Advanced Directives Records Found Advance Directive Response Recorded Date/ Time Advance Directives No February 17 4 11:03am Living Will No February 17, 2014 1 1:03am Power of Envelope Folding Machine Adjuster No February 17, 2014 11:03am Advance Directive Response Recorded Date/ Time Name of Medical Power of Envelope Folding Machine Adjuster SON April 14, 2022 8:29am Advance Directives No February 17 4 11:03am Living Will No April 14 2 8:29am Power of Envelope Folding Machine Adjuster Yes April 14 022 8:29am Advance Directive Response Recorded Date/ Time Name of Medical Power of Envelope Folding Machine Adjuster SON April 14, 2022 7:29am Advance Directives No February 17 4 10:03am Living Will No April 14 2 7:29am Power of Envelope Folding Machine Adjuster Yes April 14 022 7:29am Advance Directive Response Recorded Date/ Time Advance Directives No February 17 4 10:03am Living Will No April 14 2 7:29am Power of Envelope Folding Machine Adjuster Yes April 14 7:29am Advance Directive Response Recorded Date/ Time Advance Directives No February 17 11:03am Living Will No April 14 8:29am Power of Envelope Folding Machine Adjuster Yes April 14 8:29am Advance Directive Response Recorded Date/ Time Name of Medical Power of Envelope Folding Machine Adjuster Gideon Yumiko December 30, 2022 10:39pm Advance Directives No February 17 11:03am Living Will Yes December 30, 2022 1 0:39pm Power of Envelope Folding Machine Adjuster Yes December 30, 2022 10:39pm Advance Directive Response Recorded Date/ Time Advance Directives No February 17 11:03am Living Will Yes December 30, 2022 1 0:39pm Power of Envelope Folding Machine Adjuster Yes December 30, 2022 10:39pm Advance Directive Response Recorded Date/ Time Advance Directives No February 17 10:03am Living Will Yes December 30, 2022 9 :39pm Power of Envelope Folding Machine Adjuster Yes December 30, 2022 9:39pm Advance Directive Response Recorded Date/ Time Living Will Yes December 30, 2022 1 0:39pm Power of Envelope Folding Machine Adjuster Yes December 30, 2022 10:39pm Advance Directives No February 17 11:03am Advance Directive Response Recorded Date/ Time Living Will Yes December 30, 2022 1 0:39pm Do you have a Healthcare Power of Envelope Folding Machine Adjuster? Yes December 30, 2022 10:39pm Living Will No April 14 8:29am Do you have a Healthcare Power of Envelope Folding Machine Adjuster? Yes April 14, 2022 8:29am Advance Directives No February 17 11:03am Advance Directive Response Recorded Date/ Time Living Will No April 14 8:29am Do you have a Healthcare Pow er of Envelope Folding Machine Adjuster? Yes April 14, 2022 8:29am Do you have a Healthcare Pow er of Envelope Folding Machine Adjuster? Yes March 04, 2025 2:58pm Name of Medical Power of Envelope Folding Machine Adjuster Ed Daja olmstead March 04, 2025 2:58pm Advance Directives No February 17 11:03am Advance Directive Response Recorded Date/ Time Do you have a Healthcare Power of Envelope Folding Machine Adjuster? Yes March 04, 2025 9:11pm Name of Medical Power of Envelope Folding Machine Adjuster Gideon olmstead March 04, 2025 2:58pm Advance Directives No February 17 4 11:03am Advance Directive Response Recorded Date/ Time Do you have a Healthcare Power of Envelope Folding Machine Adjuster? Yes March 04, 2025 9:11pm Name of Medical Power of Envelope Folding Machine Adjuster Gideon olmstead March 04, 2025 2:58pm Do you have a Healthcare Power of Envelope Folding Machine Adjuster? Yes March 15, 2025 5:04pm Name of Medical Power of Envelope Folding Machine Adjuster Gideon Farnsworth March 15, 2025 5:04pm Advance Directives No February 17 4 11:03am [...] or prosecute any alcohol or drug abuse patient.[facility] the event this information is protected by the Federal Confidentiality of Alcohol and Drug Abuse Patient Records regulations: The Federal rules restrict any use of the information to criminally investigate or prosecute any alcohol or drug abuse patient.[facility] the event this information is protected by the Federal Confidentiality of Alcohol and Drug Abuse Patient Records regulations: The Federal rules restrict any use of the information to criminally investigate or prosecute any alcohol or drug abuse patient.[facility] the event this information is protected by the Federal Confidentiality of Alcohol and Drug Abuse Patient Records regulations: The Federal rules restrict any use of the information to criminally investigate or prosecute any alcohol or drug abuse patient.[facility] the event this information is protected by the Federal Confidentiality of Alcohol and Drug Abuse Patient Records regulations: The Federal rules restrict any use of the information to criminally investigate or prosecute any alcohol or drug abuse patient.[facility] Reason for Visit (unrecogniz ed section and content) Reason Comments Results Reason Comments Urinary Problem burning with urinati on x 1 week nasal congestion and drainage x 1 week Reason Comments Results COVID+ Reason Comments Patient Update Care Teams (unrecognized sec tion and content) Degreasing Wheel Operator Relationship Specialty Start Date End Date Tonio Fajardo, [address] [place], [place] [id number] PCP - General Family Practice 04/05/22 Degreasing Wheel Operator Relationship Specialty Start Date End Date Tonio Fajardo [address] [place], [place] [id number] PCP - General Family Practice 04/05/22 Degreasing Wheel Operator Relationship Specialty Start Date End Date Tonio Fajardo [address] [place], [place] [id number] PCP - General Family Practice 04/05/22 Degreasing Wheel Operator Relationship Specialty Start Date End Date Tonio FajardoDO [address] [place], [place] [id number] PCP - General Family Medicine 04/05/22 Team Status: Active Member Role Status Dates Dr. Tonio Fajardo DO Family Provider Active Dr. Tonio Fajardo DO Primary Care Provider Active Team Status: Inactive Member Role Status Dates Dr. Tonio Fajardo , DO Primary Care Provider, Referrin g Provider Active Iker Rodriguez CHRONOMETER ADJUSTER, CHRONOMETER ADJUSTER-C Attending Provider Active Team Status: Inactive Member [...] DO Primary Care Provider Active Bonny Glynn CHRONOMETER ADJUSTER, CHRONOMETER ADJUSTER-C Attending Pro vider, Referring Provider, Other Provider [...] DO Primary Care Provider Active Bonny Glynn CHRONOMETER ADJUSTER, CHRONOMETER ADJUSTER-C Attending Provider Active Team Status: Active Member [...] DO Primary Care Provider Active Bonny Glynn CHRONOMETER ADJUSTER, CHRONOMETER ADJUSTER-C Attending Provider Active Team Status: Inactive Member Role Status Dates Dr. Tonio Fajardo , DO Primary Care Provider Active Bonnyap PeresRenard CHRONOMETER ADJUSTER, CHRONOMETER ADJUSTER-C Attending Provider, Referri ng Provider Active Team Status: Inactive Member Role Status Dates Dr. Tonio Fajardo , DO Primary Care Provider, Referrin g Provider Active Dr. Tyrell Uriarte DO Attending Provider Active Team Status: Active Member Role Status Dates Dr. Tonio Fajardo , DO Primary Care Provider Active Bonny Glynn CHRONOMETER ADJUSTER, CHRONOMETER ADJUSTER-C Attending Provider, Other P rovider Active Team [...] Provider, Referrin g Provider Active Bonny Glynn CHRONOMETER ADJUSTER, CHRONOMETER ADJUSTER-C Attending Provider Active Team Status: Inactive Member [...] , DO Primary Care Provider Active Dr. Joaquim Suárez DPM Attending Provider, Referring Provider Active Team Status: Inactive Member Role Status Dates Dr. Tonio Fajardo DO Primary Care Provider Active Dr. Joaquim Suárez DPM Referring Provider Active Dr. Edi Ledesma DPM Attending Provider Active Team Status: Inactive Member Role Status Dates Dr. Tonio Fajardo DO Primary Care Provider, Referrin g Provider Active Lorie Mart CHRONOMETER ADJUSTER, CHRONOMETER ADJUSTER-C Attending Provider Active Team Status: Inactive Member Role Status Dates Dr. Tonio Fajardo DO Primary Care Provider, Referrin g Provider Active Leslie DAMIAN PA Attending Provider Active Team Status: Inactive Member Role Status Dates Dr. Tonio Fajardo DO Primary Care Provider Active Lorie Mart CHRONOMETER ADJUSTER, CHRONOMETER ADJUSTER-C Attending Provider, Referrin g Provider Active Team Status: Active Member Role Status Dates Dr. Tonio Fajardo DO Primary Care Provider Active Dr. Issa Looney MD Attending Provider Active Team Status: Inactive Member Role Status Dates Dr. Tonio Fajardo DO Primary Care Provider Active Leslie DAMIAN PA Attending Provider, Referr ing Provider Active Team Status: Inactive Member Role Status Dates Dr. Tonio Fajardo DO Primary Care Provider Active Dr. Joaquim Suárez DPM Attending Provider Active Degreasing Wheel Operator Relationship Specialty Start Date End Date Tonio Fajardo DO [address] [place] [address] PCP - General Family Medicine 04/05/22 Team [...] 2024 End: October 16, 2024 Lorie Mart CHRONOMETER ADJUSTER, CHRONOMETER ADJUSTER-C Attending Provider Active Start: October 16, 2024 End: October 16, 2024 Lorie Mart CHRONOMETER ADJUSTER, CHRONOMETER ADJUSTER-C Referring Provider Active Start: October 16, 2024 End: October 16, 2024 Team Status: Active Member Role Status Dates Dr. Tonio Fajardo DO Primary Care Provider Active Start: October 17, 2024 Lorie Mart CHRONOMETER ADJUSTER, CHRONOMETER ADJUSTER-C Referring Provider Active Start: October 17, 2024 Lorie Mart CHRONOMETER ADJUSTER, CHRONOMETER ADJUSTER-C Other Provider Active Start: October 17, 2024 [...] 2024 End: October 23, 2024 Lorie Mart CHRONOMETER ADJUSTER, CHRONOMETER ADJUSTER-C Attending Provider Active Start: October 23, 2024 [...] End: March 09, 2025 Iker Stephens Michael CHRONOMETER ADJUSTER, CHRONOMETER ADJUSTER-C Other Provider Active Start : March 04, 2025 End: March 09, 2025 Leslie Arriaga PA, PA Other Provider Active Start: March 04, 2025 End: March 09, 2025 RICKIE Cummins Other Provider Active Start: March 04, 2025 End: March 09, 2025 Team Status: Active Member Role/Relationship Status Dates Dr. Tonio Fajardo , Primary Care Provider Active Start: March 05, [...] Provider Active Start: March 05, 2025 Iker Angelo Michael CHRONOMETER ADJUSTER, CHRONOMETER ADJUSTER-C Other Provider Active Start : March 05, [...] Active Start: March 06, 2025 Iker Rodriguez CHRONOMETER ADJUSTER, CHRONOMETER ADJUSTER-C Other Provider Active Start : March 06, 2025 Leslie Arriaga PA, PA Other Provider Active Start: March 06, [...] Active Start: March 06, 2025 Dr. Reinaldo Mlcain MD Other Provider Active S tart: March 06, 2025 Dr. Santos Hsu MD Other Provider Active Start: March 06, 2025 Iker Rodriguez CHRONOMETER ADJUSTER, CHRONOMETER ADJUSTER-C Other Provider Active Start : March 06, [...] Active Start: March 07, 2025 Iker Rodriguez CHRONOMETER ADJUSTER, CHRONOMETER ADJUSTER-C Other Provider Active Start : March 07, 2025 Leslie Arriaga PA, PA Other Provider Active Start: March 07, 2025 RICKIE Cummins Other Provider Active Start: March 07, 2025 Team Status: Active Member Role/Relationship Status Dates Dr. Tnoio Fajardo DO Primary Care Provider Active Start: March 08, 2025 Dr. Chris Ochoa MD Emergency Provider Active S tart: March 08, 2025 Dr. Nicola de Los , DO Admit Provider Active Start: March 08, [...] Active Start: March 08, 2025 Iker Rodriguez CHRONOMETER ADJUSTER, CHRONOMETER ADJUSTER-C Other Provider Active Start : March 08, [...] Active Start: March 08, 2025 Iker Rodriguez CHRONOMETER ADJUSTER, CHRONOMETER ADJUSTER-C Other Provider Active Start : March 08, [...] Active Start: March 09, 2025 Iker Rodriguez CHRONOMETER ADJUSTER, CHRONOMETER ADJUSTER-C Other Provider Active Start : March 09, [...] Active Start: March 09, 2025 Iker Rodriguez CHRONOMETER ADJUSTER, CHRONOMETER ADJUSTER-C Other Provider Active Start : March 09, 2025 Leslie Arriaga PA, PA Other Provider Active Start: March 09, 2025 RICKIE Cummins Other Provider Active Start: March 09, 2025 Team Status: Inactive Member Role/Relationship Status Dates Dr. Tonio Fajardo DO Primary Care Provider Active Start: March 15, 2025 End: March 15, 2025 Dr. Alex Matias MD Emergency Provider Active Sta rt: March 15, 2025 End: March 15, 2025 Team Status: Inactive Member Role/Relationship Status Dates Dr. Tonio Fajardo DO Primary Care Provider Active Start: March 17, 2025 End: March 17, 2025 Dr. Tonio Fajardo DO Referring Provider Active Start: March 17, 2025 End: March 17, 2025 Leslie Arriaga PA, PA Attending Provider Active Start: March 17, 2025 End: March 17, 2025 Team Status: Inactive Member Role/Relationship Status Dates Dr. Tonio Fajardo DO Primary Care Provider Active Start: March 15, 2025 End: March 15, 2025 Dr. Alex Matias MD Attending Provider Active Sta rt: March 15, 2025 End: March 15, 2025 Dr. Alex Matias MD Emergency Provider Active Sta rt: March 15, 2025 End: March 15, 2025 Team Status: Inactive Member Role/Relationship Status Dates Dr. Tonio Fajardo DO Primary Care Provider Active Start: March 18, 2025 End: March 18, 2025 Dr. Tonio Fajardo DO Attending Provider Active Start: March 18, 2025 End: March 18, 2025 Team Status: Active Member Role/Relationship Status Dates Dr. Tonio Fajardo DO Primary Care Provider Active Start: March 27, 2025 Leslie Arriaga PA, PA Attending Provider Active Start: March 27, 2025 Leslie Arriaga PA, PA Referring Provider Active Start: March 27, 2025 Team Status: Inactive Member Role/Relationship Status Dates Dr. Tonio Fajardo DO Primary Care Provider Active Start: March 27, 2025 End: March 27, 2025 RICKIE Mendoza Attending Provider Active Start: March 27, 2025 End: March 27, 2025 RICKIE Mendoza Referring Provider Active Start: March 27, 2025 End: March 27, 2025 Team Status: Active Member Role/Relationship Status Dates Dr. Tonio Fajardo DO Primary Care Provider Active Start: April 02, 2025 Carmelina Parra Attending Provider Active Start: April 02, 2025 Carmelina Parra Referring Provider Active Start: April 02, 2025 (unrecognized sect ion and content) No Status Records FoundNo Status Records Found INFORMATION SOURCE (unrecogn ized section and content) DATE CREATED AUTHOR 08/12/2022 [facility] DATE CREATED AUTHOR 'S YAMILKA LEMUS 04/04/2025 [facility] FOR RECORDS PERTAINING TO PATIENTS WHO [...] BE BASED ON THE PRIMARY CLINICAL RECORDS. [employer] provides no warranty or guarantee of the accuracy or completeness of information in this document.
--- NOTE | 2025-04-05 16:55 | EKG12_ITS ---
Test Reason : SHIREEN Blood Pressure : */* mmHG Vent. Rate : 101 BPM Atrial Rate : 101 BPM P-R Int : 132 ms QRS Dur : 122 ms QT Int : 346 ms P-R-T Axes : * 5 -41 degrees QTcB Int : 448 ms Sinus tachycardia Right bundle branch block Marked ST abnormality, possible inferior subendocardial injury Abnormal ECG Confirmed by CAMILLE STRATTON, SANDRA ([id number]), metropolitan editor AYDEN TENORIO ([id number]) on 04/07/2025 6:11:49 AM Referred By: SARAH/BHARATI Confirmed By: SANDRA OBRIEN MD
[2025-04-05 17:16] LABS: Hematocrit 29.0 % (40-54); Hemoglobin 8.9 g/dL (13.0-16.5); Immature Granulocytes Count 0.060 X10^3/uL (0.0-0.0); Mean Corp Hgb Conc 30.7 g/dL (32-36); Mean Corpuscular Volume 88.7 fL (80-94); Mean Platelet Vol. 11.1 fl (6.2-12.0); NRBC Flagged by Analyzer 0.2 % (0-5); Platelet Count 226 K/mm3 (150-450); RBC Distribution Width CV 17.1 % (11.6-14.6); RBC Distribution Width SD 55.5 fl (35.1-43.9); Red Blood Count 3.27 M/mm3 (4.6-6.2); White Blood Count 8.7 K/mm3 (4.4-11.0)
--- NOTE | 2025-04-05 17:25 | RAD_ITS ---
PROCEDURE: CHEST PA AND LATERAL 04/05/2025 REASON FOR EXAM: COUGH TECHNIQUE: CHEST PA AND LATERAL COMPARISON: 03/05/2025 FINDINGS: Lungs/Pleura: Moderate right and small left pleural effusions likely with adjacent atelectasis. Diffuse interstitial reticular airspace opacities likely related to interstitial edema. Underlying consolidation is not excluded. No pneumothorax. Pulmonary vascular congestion. Heart/Mediastinum: Cardiomegaly. Evidence of prior CABG with sternotomy wires and multiple mediastinal surgical clips. Coarse calcification of the aortic arch. Bones/Soft tissues: Qualitative osteopenia. Mild degenerative changes of the spine. RAD/Chest PA and Lateral IMPRESSION: CHF with moderate right and small left pleural effusions/atelectasis, and pulmo nary edema. Underlying infectious/inflammatory process cannot be reliably excluded. Reading Location: [id number]
--- NOTE | 2025-04-05 17:27 | EX.ED.DYSGE1 ---
HPI History of Present Illness Chief Complaint: Hypotension Informant: patient and family Narrative Narrative: Presents by EMS from home daughter in law present. Increasing productive cough. Chronic oxygenation of 3 L for COPD history remote history of lung cancer. [id number] reports that increase his oxygen to 4 L. He is on Eliquis for history of A-fib. He has been using his [place]ail[place] at home. Denies leg swelling. EMS was contacted his 3 L was 88% and he had a blood pressure of 85. She has been EKG sinus rhythm right bundle branch block heart rate of 100. Reported he was given atropine by EMS blood pressure responded. He denies any chest pain or any exertional dyspnea. Diabetes CKD history. He is followed by the [facility]. Reports he was admitted 3 weeks ago approximately had his metoprolol held and placed on diltiazem. Prior similar symptoms: Yes PFSH [facility] Medical History Peripheral arterial disease Other persistent atrial fibrillation New onset atrial flutter COVID Wears hearing aid in both ears Former smoker Coronary artery disease Peripheral vascular occlusive disease BPH (benign prostatic hyperplasia) Chronic kidney disease, stage 3 Atherosclerosis of coronary artery of [place] heart without angina pectoris Hyperlipidemia Lower extremity edema Venous insufficiency Malnutrition Delayed wound healing Osteomyelitis of ankle, left, acute Ulcer of left lower extremity with fat layer exposed Type 2 diabetes mellitus with diabetic polyneuropathy Anemia GERD (gastroesophageal reflux disease) Hypertension Home Medications ?Medication ?Instructions ?Recorded ?Last Taken ?Type insulin glargine 100 unit/mL 30 unit SQ QHS diabetes 11/19/19 03/03/25 History subcutaneous solution multivitamin (Daily Multi-Vitamin 1 tab PO DAILY supplement 06/28/20 03/03/25 History tablet) sitagliptin phosphate 50 mg tablet 50 mg PO DAILY diabetes 11/02/21 03/03/25 History (Januvia) pravastatin 20 mg tablet 20 mg PO DAILY hyperlipidemia 01/17/22 03/03/25 History cranberry 500 mg capsule 500 mg PO DAILY supplement 07/25/23 03/03/25 History docusate sodium 100 mg capsule 100 mg PO DAILY PRN stool softn 07/25/23 Unknown History (Colace) albuterol sulfate 90 mcg/actuation 2 puff inhalation Q4H PRN 10/23/24 Unknown Rx aerosol inhaler shortness of breath or wheezing #3 device umeclidinium 62.5 mcg-vilanterol 1 inh inhalation QDAY copd #60 ea 10/23/24 03/03/25 Rx 25 mcg/actuation powdr for inhalation (Anoro Ellipta) apixaban 5 mg tablet (Eliquis) 2.5 mg (1/2 x 5 mg) PO BID 30 days 03/09/25 Unknown Rx #30 tabs diltiazem HCl 120 mg 120 mg PO DAILY 30 days #30 caps 03/09/25 Unknown Rx capsule,extended release 24 hr guaifenesin 1,200 mg tablet, 1,200 mg PO Q12H 7 days #14 tabs 03/09/25 Unknown Rx extended release 12 hr tamsulosin 0.4 mg capsule 0.4 mg PO DAILY@1730 30 days #30 03/09/25 Unknown Rx caps metoprolol succinate 25 mg 12.5 mg (1/2 x 25 mg) PO BID #90 04/03/25 Unknown Rx tablet,extended release 24 hr tabs clopidogrel 75 mg tablet 75 mg PO DAILY 04/05/25 Unknown History insulin glargine 100 unit/mL (3 unit subcut 04/05/25 Unknown History mL) subcutaneous pen (Lantus Solostar U-100 Insulin) Allergy/AdvReac Type Severity Reaction Status Date / Time ibuprofen Allergy Severe Facial Verified 04/05/25 16:44 swelling (angioedema) Family History Brother Diabetes Father , Age 72 stomach ulcers No problems noted. Mother , Age 71 pancreatitis No problems noted. Sister , hepatitis C No problems noted. Surgical History H/O aorto-femoral bypass (~2009) History of transurethral resection of prostate Presence of aortocoronary bypass graft (~03/2013) Social History Smoking Status: Former smoker Tobacco: How many years used: 30 how long ago did patient quit smokin years ROS ROS ED Constitutional Constitutional ED: Denies chills, fever(s) or sweats ENT ENT ED: Denies sore throat Cardiovascular Cardiovascular: Denies chest pain, leg edema, palpitations or racing heartbeat Respiratory/Chest Respiratory/Chest: Reports cough and dyspnea; Denies dyspnea on exertion Gastrointestinal Gastrointestinal: Denies abdominal pain, diarrhea, nausea or vomiting Genitourinary Genitourinary ED: Denies dysuria, hematuria or urinary frequency Musculoskeletal Musculoskeletal: Denies back pain, extremity pain or neck pain Integumentary Denies rash or wounds Neurologic Neurologic: Denies headache(s), paresthesias or weakness EXAM Physical Exam Const Vital Signs: 04/05/25 16:41 04/05/25 16:48 04/05/25 16:50 Temperature 97.6 F L 97.6 F L Temperature Source Oral Oral Pulse Rate 101 H 102 H Respiratory Rate 26 H 28 H Respiratory Effort Short of Breath Blood Pressure 120/63 121/66 H Blood Pressure Mean 82 84 Pulse Ox 92 96 Oxygen Delivery Method Nasal Cannula Nasal Cannula Oxygen Flow Rate (L/min) 3 04/05/25 17:14 04/05/25 17:30 04/05/25 17:44 Temperature 97.6 F L Temperature Source Oral Pulse Rate 101 H 68 75 Respiratory Rate 21 H 23 H Respiratory Effort Blood Pressure 95/57 L 101/75 136/112 H Blood Pressure Mean 69 83 120 Pulse Ox 96 96 94 Oxygen Delivery Method Nasal Cannula Room Air Nasal Cannula Oxygen Flow Rate (L/min) 3 3 3 04/05/25 18:00 04/05/25 18:30 04/05/25 19:00 Temperature Temperature Source Pulse Rate 101 H 102 H 101 H Respiratory Rate 24 H 36 H Respiratory Effort Blood Pressure 108/68 108/88 H 121/79 H Blood Pressure Mean 81 94 93 Pulse Ox 95 93 94 Oxygen Delivery Method Nasal Cannula Nasal Cannula Nasal Cannula Oxygen Flow Rate (L/min) 3 3 3 04/05/25 19:12 04/05/25 19:17 04/05/25 19:30 Temperature 98 F Temperature Source Pulse Rate 102 H 101 H 101 H Respiratory Rate 19 H 22 H 25 H Respiratory Effort Blood Pressure 121/61 H 123/68 H Blood Pressure Mean 81 86 Pulse Ox 97 94 Oxygen Delivery Method Nasal Cannula Oxygen Flow Rate (L/min) 4 Positive well nourished and well developed Constitutional Narrative: 4 L nasal cannula General Appearance ED: well developed and NAD HEENT Reports moist mucous membranes normocephalic and atraumatic Eyes General Eye ED: Yes normal appearance of both eyes Neck full ROM Chest Wall Chest: Negative for tenderness Resp normal respiratory effort and normal air movement Effort and Inspection: symmetric chest movement; Negative for respiratory distress Cardio regular rate, regular rhythm and no murmurs Peripheral Pulses: pulses 2+ throughout GI normal to inspection, nondistended, normoactive bowel sounds and non-tender Palpation: Negative for guarding or rebound tenderness present Extremity normal to inspection General Extremety ED: Negative for edema or tenderness General Extremity: Negative for edema Neuro oriented x3, CN's II-XII intact bilaterally and no sensory deficits noted Sensorium / Orientation: awake and alert Skin no rashes or lesions noted and no wounds MDM MDM MDM Narrative Medical decision making narrative: Interventions / MDM: Differential diagnosis: CHF exacerbation, hypoxia Diagnosis considered but do not suspect: Pneumonia however x-ray negative My EKG interpretation: Sinus rate of 101, ST depression in lateral leads no elevations, right bundle branch block QT 448. Similar EKG findings from February of this year. Imaging independently reviewed and interpreted by myself: 2 view chest x-ray: Vascular congestion External documents reviewed: Echocardiogram March 04 EF 55% stage I diastolic dysfunction. Mild valve insufficiencies. Hospitalization from February visit reviewed, apparently had potential tachybradycardia syndrome, they did not feel he required pacemaker at that time. He follow-up cardiology office on 07 March there was plan for Holter monitor. Test considered but not ordered:N/A ED course: Patient status post atropine heart rate blood pressure stable on evaluation. Have a blood pressure in the 80s by EMS pulse ox of 88% on 3 L he is reported productive cough. EKG is chronic ST depression laterally compared to previous. 2 view chest x-ray ordered will order labs including viral nasal studies. Will continue oxygen there is no active wheezing at this time. Per nursing interim heart rate was down to 50s briefly on my review was in the 70s. He more slow a flutter. Will continue to monitor at this time. Chest x-ray vascular congestion. BNP added elevated at 4000. Reevaluation heart rate low 100s sinus rhythm on the monitor. She requiring increased oxygenation up to 4 L from his baseline 3 L. He was given IV Lasix to 40 mg. Potassium was 5.8 no EKG changes aerosol treatments insulin glucose was ordered. I discussed with hospitalist Dr. Cheema for admission. Re-evaluation: stable Disposition discussed with patient/family/significant other: Patient and family Case discussed with consulting clinician: Hospitalist This note was generated with [employer] dictation software. It may contain incorrect words, spelling, and punctuation that were not noted in checking the note before signing. Lab Data Attestation: I reviewed the patient's lab results. Labs: Laboratory Results - last 24 hr 04/05/25 04/05/25 04/05/25 17:10 17:50 19:10 WBC 8.7 RBC 3.27 L Hgb 8.9 L Hct 29.0 L MCV 88.7 MCH 27.2 MCHC 30.7 L RDW Std Deviation 55.5 H RDW Coeff of Reggie 17.1 H Plt Count 226 MPV 11.1 Immature Gran % (Auto) 0.700 Neut % (Auto) 79.7 H Lymph % (Auto) 7.3 L [place] % (Auto) 10.7 H Eos % (Auto) 1.0 Baso % (Auto) 0.6 Absolute Neuts (auto) 7.0 Absolute Lymphs (auto) 0.64 L Nucleated RBC % 0.2 Sodium 134 Potassium 5.8 H Chloride 97 L Carbon Dioxide 26.7 Anion Gap 11 BUN 60 H Creatinine 2.57 H Estim Creat Clear Calc 22.62 L Est GFR (MDRD) Non-Af 25 L BUN/Creatinine Ratio 23.2 H Glucose 164 H Calcium 8.8 Magnesium 2.5 H Troponin T High Sens 64 H* D Troponin T Hi Sens 2 Hr 62 H* NT pro BNP II 4003 H TSH 3.830 POC Glucose 147 H Radiography Diagnostic Testing: Clinical Impression(s) from Imaging Studies Chest X-Ray 04/05/25 17:25 IMPRESSION: CHF with moderate right and small left pleural effusions/atelectasis, and pulmonary edema. Underlying infectious/inflammatory process cannot be reliably excluded. Reading Location: [id number] Discharge Plan Dx/Rx/DC Orders Clinical Impression: CHF exacerbation, Chronic kidney disease, stage 3, Atrial flutter, Chronic anticoagulation, Hyperkalemia Disposition Disposition: Acute Care Hospital [facility] Discharge Date/Time: 04/05/25 20:38
[2025-04-05 17:47] LABS: Anion Gap 11 (5-15); BUN 60 mg/dL (4-19); BUN/Creat Ratio 23.2 RATIO (10-20); Calcium,Total 8.8 mg/dL (7.6-11.0); Carbon Dioxide 26.7 mmol/L (21.0-32.0); Chloride 97 mmol/L (98-108); Estimated Creatinine Clearance 22.62 ml/min (50-250); Glucose 164 mg/dL (70-99); Potassium 5.8 mmol/L (3.3-5.1)
[2025-04-05 18:05] LABS: Troponin T High Sensitivity 64 ng/L (<=22)
[2025-04-05 18:57] LABS: Pro- Brain NATRIURETIC PEPTIDE 4003 pg/mL (<=1800)
[2025-04-05] MEDS: Albuterol *CONC* 2.5mg/0.5mL VIAL.NEB. 10 MG INHALATION (19:15)
--- NOTE | 2025-04-05 19:18 | HP.PCM.HOS_ITS ---
[facility] - General General Date of Admission: 04/05/25 Date of Service: 04/05/25 Chief Complaint: SOB, Cough and Hypotension. HPI Narrative PEDRO HILLMAN, is a 80 M with a past medical history of essential hypertension; on metoprolol twice daily, hyperlipidemia; on pravastatin, overweight; with a BMI of 28 this admission, DM-2; of unknown control on empagliflozin and insulin glargine 30 units subcu at bedtime, diabetic polyneuropathy; currently not on treatment, CAD; s/p CABG x 3 (2012), chronic atrial fibrillation; on diltiazem and apixaban twice daily, former tobacco abuse; with subsequent COPD and remote history of lung cancer, chronic hypoxic respiratory failure on 3L NC continuous, history of COVID-19, PAD; s/p aortofemoral bypass (~2009), chronic lower extremity edema with venous insufficiency, CKD; stage IV, chronic anemia, BPH; s/p TURP on tamsulosin, history of osteomyelitis of the Left ankle, GERD; currently not on treatment, OA and patient still FULL CODE who presents to [facility] ER complaining of shortness of breath, cough and hypotension. Mr. Hillman reports his symptoms began this morning when he noted a blood pressure 100/85 mmHg with increasing shortness of breath that caused him to increase his oxygenation to 4L NC. EMS was then activated and he was noted to have a oxygen saturation of 88% in spite of being on 4L NC. He was then given atropine x 1 for his blood pressure. There was no report of associated fever, chills, runny nose, sore throat, ear pain, chest pain, palpitations, heart racing, lower extremity edema, abdominal pain, nausea, vomiting, diarrhea, constipation, dysuria, hematuria, headache or rash. In the ER he was noted to have an elevated NT pro-BNP II of 4,003 pg/mL present on admission with a corresponding CXR that revealed AE CHF with moderate right and small left pleural effusion/atelectasis with pulmonary edema and with underlying infectious/inflammatory process cannot be reliably excluded with mildly elevated troponin T of 64 ng/L likely due to acute cardiac strain complicated by Hyperkalemia of 5.8 mmol/L present on admission in the setting of CKD; stage IV with serum creatinine of 2.57 mg/dL and BUN of 60 mg/dL present on admission compounded by clinical evidence of acute-on chronic respiratory insufficiency. He was then admitted to the PCU for ongoing care for status expected to extend beyond 2 midnights. [facility] Medical History Peripheral arterial disease Other persistent atrial fibrillation New onset atrial flutter DIMA Wears hearing aid in both ears Former smoker Coronary artery disease Peripheral vascular occlusive disease BPH (benign prostatic hyperplasia) Chronic kidney disease, stage 3 Atherosclerosis of coronary artery of [place] heart without angina pectoris Hyperlipidemia Lower extremity edema Venous insufficiency Malnutrition Delayed wound healing Osteomyelitis of ankle, left, acute Ulcer of left lower extremity with fat layer exposed Type 2 diabetes mellitus with diabetic polyneuropathy Anemia GERD (gastroesophageal reflux disease) Hypertension Home Medications ?Medication ?Instructions ?Recorded ?Last Taken ?Type insulin glargine 100 unit/mL 30 unit SQ QHS diabetes 0 11/19/19 03/03/25 History subcutaneous solution multivitamin (Daily Multi-Vitamin 1 tab PO DAILY suppl ement 06/28/20 03/03/25 History tablet) sitagliptin phosphate 50 mg tablet 50 mg PO DAILY diab etes 11/02/21 03/03/25 History (Januvia) pravastatin 20 mg tablet 20 mg PO DAILY hyperlipidemi a 01/17/22 03/03/25 History cranberry 500 mg capsule 500 mg PO DAILY supplement 1 09/25/22 03/03/25 History docusate sodium 100 mg capsule 100 mg PO DAILY PRN sto ol softn 07/25/23 Unknown History (Colace) albuterol sulfate 90 mcg/actuation 2 puff inhalation Q 4H PRN 10/23/24 Unknown Rx aerosol inhaler shortness of breath or wheez ing #3 device umeclidinium 62.5 mcg-vilanterol 1 inh inhalation QDAY copd #60 ea 10/23/24 03/03/25 Rx 25 mcg/actuation powdr for inhalation (Anoro Ellipta) apixaban 5 mg tablet (Eliquis) 2.5 mg (1/2 x 5 mg) PO BID 30 days 03/09/25 Unknown Rx #30 tabs diltiazem HCl 120 mg 120 mg PO DAILY 30 days #30 caps 03/09/25 Unknown Rx capsule,extended release 24 hr guaifenesin 1,200 mg tablet, 1,200 mg PO Q12H 7 days # 14 tabs 03/09/25 Unknown Rx extended release 12 hr tamsulosin 0.4 mg capsule 0.4 mg PO DAILY@1730 30 days #30 03/09/25 Unknown Rx caps metoprolol succinate 25 mg 12.5 mg (1/2 x 25 mg) PO BI D #90 04/03/25 Unknown Rx tablet,extended release 24 hr tabs clopidogrel 75 mg tablet 75 mg PO DAILY 04/05/25 Unkn own History insulin glargine 100 unit/mL (3 unit subcut 04/05/25 U nknown History mL) subcutaneous pen (Lantus Solostar U-100 Insulin) Allergy/AdvReac Type Severity Reaction Status Date / Time ibuprofen Allergy Severe Facial Verified 04/05/25 16:44 swelling (angioedema) Family History Brother Diabetes Father , Age 72 stomach ulcers No problems noted. Mother , Age 71 pancreatitis No problems noted. Sister , hepatitis C No problems noted. Surgical History H/O aorto-femoral bypass (~2009) History of transurethral resection of prostate Presence of aortocoronary bypass graft (~03/2013) Social History Smoking Status: Former smoker Tobacco: How many years used: 30 how long ago did patient quit smokin years ROS ROS Narrative Review of Systems: Constitutional: Patient denies fever or chills. Eyes: Patient denies change in vision or discharge from eyes. ENT: Patient denies runny nose, sore throat or ear pain. Resp: Patient admits to shortness of breath and cough but he denies wheezing. CV: Patient denies chest pain, palpitations, heart racing or lower extremity edema. GI: Patient denies abdominal pain, nausea, vomiting, diarrhea or constipation. : Patient denies dysuria, hematuria or urinary frequency. MSK: Patient denies arthralgias or myalgias. Skin: Patient denies rash, abscess, wounds or jaundice. Psych: Patient denies symptoms of uncontrolled depression or anxiety. Neuro: Patient denies headache, paresthesias or focal neurologic deficits. Allergy: Patient denies lip swelling, tongue swelling or urticaria. Hematology: Patient admits to easy bleeding and easy bruisability on apixaban. Endocrinology: Patient denies polyuria, polydipsia, polyphagia or heat/cold intolerance. 14 point ROS otherwise negative except for positives noted above in HPI. Vital Signs Vital Signs Vital Signs: 04/05/25 16:41 04/05/25 16:48 04/05/25 16:50 Temperature 97.6 F L 97.6 F L Temperature Source Oral Oral Pulse Rate 101 H 102 H Respiratory Rate 26 H 28 H Respiratory Effort Short of Breath Blood Pressure 120/63 121/66 H Blood Pressure Mean 82 84 Pulse Ox 92 96 Oxygen Delivery Method Nasal Cannula Nasal Cannula Oxygen Flow Rate (L/min) 3 04/05/25 17:14 04/05/25 17:30 04/05/25 17:44 Temperature 97.6 F L Temperature Source Oral Pulse Rate 101 H 68 75 Respiratory Rate 21 H 23 H Respiratory Effort Blood Pressure 95/57 L 101/75 136/112 H Blood Pressure Mean 69 83 120 Pulse Ox 96 96 94 Oxygen Delivery Method Nasal Cannula Room Air Nasal Cannula Oxygen Flow Rate (L/min) 3 3 3 04/05/25 18:00 04/05/25 18:30 04/05/25 19:00 Temperature Temperature Source Pulse Rate 101 H 102 H 101 H Respiratory Rate 24 H 36 H Respiratory Effort Blood Pressure 108/68 108/88 H 121/79 H Blood Pressure Mean 81 94 93 Pulse Ox 95 93 94 Oxygen Delivery Method Nasal Cannula Nasal Cannula Nasal Cannula Oxygen Flow Rate (L/min) 3 3 3 04/05/25 19:12 04/05/25 19:17 Temperature 98 F Temperature Source Pulse Rate 102 H 101 H Respiratory Rate 19 H 22 H Respiratory Effort Blood Pressure 121/61 H Blood Pressure Mean 81 Pulse Ox 97 Oxygen Delivery Method Oxygen Flow Rate (L/min) Weight Weight: 173 lb 8.061 oz Body Mass Index (BMI) 28.0 Physical Exam Const alert, oriented x3, no apparent distress and average body habitus Constitutional Narrative: Patient has chronically ill but nontoxic appearance. General Appearance: cooperative HEENT normocephalic, head/scalp atraumatic, hearing grossly normal bilaterally and moist oral mucous membranes Eyes PERRL, EOMs intact bilaterally and conjunctivae normal Neck no lymphadenopathy and supple Resp Resp Narrative: Diminished breath sounds throughout. Cardio regular rate and regular rhythm GI normal to inspection, nondistended, normoactive bowel sounds, soft to palpation, non-tender and non-distended Extremity normal to inspection, full ROM and no clubbing, cyanosis or edema Skin Skin Narrative: Patient has evidence of rash, abscess, wounds or jaundice. Neuro oriented x3, CN's II-XII intact bilaterally, moves all extremities and no focal motor deficits Sensorium / Orientation: awake, alert, oriented to person, oriented to place and oriented to time Speech: speech normal Psych affect normal Results Medical Records Data Attestation: I reviewed the patient's medical records Lab / Micro Data Attestation: I reviewed the patient's lab results. 04/06/25 04:58 04/05/25 17:10 Labs: Laboratory Results - last 24 hr 04/05/25 17:10: WBC 8.7, RBC 3.27 L, Hgb 8.9 L, Hct 29.0 L, MCV 88.7, MCH 27.2, MCHC 30.7 L, RDW Std Deviation 55.5 H, RDW Coeff of Reggie 17.1 H, Plt Count 226, MPV 11.1, Immature Gran % (Auto) 0.700, Neut % (Auto) 79.7 H, Lymph % (Auto) 7.3 L, [place] % (Auto) 10.7 H, Eos % (Auto) 1.0, Baso % (Auto) 0.6, Absolute Neuts (auto) 7.0, Absolute Lymphs (auto) 0.64 L, Nucleated RBC % 0.2, Sodium 134, P otassium 5.8 H, Chloride 97 L, Carbon Dioxide 26.7, Anion Gap 11, BUN 60 H, C reatinine 2.57 H, Estim Creat Clear Calc 22.62 L, Est GFR (MDRD) Non-Af 25 L, B UN/Creatinine Ratio 23.2 H, Glucose 164 H, Calcium 8.8, Troponin T High Sens 64 H* D, NT pro BNP II 4003 H 04/05/25 17:50: POC Glucose 147 H Micro: Microbiology 04/05/25 17:05 Mucosa - Nose SARS-CoV-2, Influenza & RSV (PCR) - Final Imaging Radiology Impression Chest X-Ray 04/05/25 17:25 IMPRESSION: CHF with moderate right and small left pleural effusions/atelectasis, and pulmonary edema. Underlying infectious/inflammatory process cannot be reliably excluded. Reading Location: [id number] Assessment & Plan Assessment/Plan (1) Acute on chronic diastolic congestive heart failure: (2) Elevated troponin: (3) Presence of aortocoronary bypass graft: (4) Hyperkalemia: (5) CKD (chronic kidney disease), stage IV: (6) Respiratory insufficiency: (7) Acute cystitis without hematuria: (8) Chronic atrial fibrillation: (9) Chronic anticoagulation: (10) Overweight (BMI 25.0-29.9): PLAN: Plan 1. Elevated NT pro-BNP II of 4,003 pg/mL present on admission with a corresponding CXR that revealed AE of Chronic Diastolic CHF; with preserved LVEF with moderate right and small left pleural effusion/atelectasis with pulmonary edema and with underlying infectious/inflammatory process cannot be reliably excluded with patient still FUL CODE - Admit to PCU. Continue furosemide 40 mg IV twice daily plus give supplemental magnesium. Give IV albumin to allow for diuresis without exacerbating hypotension or CKD; stage IV. Patient underwent recent echocardiogram done here on March 04, 2025 that revealed LVEF ~55% with stage I diastolic dysfunction and moderate concentric LVH. 2. Elevated troponin T of 64 ng/L likely due to acute cardiac strain arising from #1 in the setting of previously known CAD; s/p CABG x 3 (2012) - Serialize troponin. Continue clopidogrel and statin. Doubt ACS. 3. Hyperkalemia of 5.8 mmol/L present on admission in the setting of CKD; stage IV with serum creatinine of 2.57 mg/dL and BUN of 60 mg/dL present on admission with Hypotension complicating #1 & #2 - Patient treated with IV furosemide in addition to IV insulin in ER. We will also give oral polystyrene and recheck CMP daily to follow trend of potassium level and to follow kidney function. We will avoid potentially nephrotoxic agents. We will give IV albumin to allow for diuresis without exacerbating hypotension or CKD; stage IV. Finally, we will consult nephrology to see this patient on rounds in the a.m. for further recommendations given the complexity of his case with help appreciated in advance. 4. Acute-on chronic Respiratory Insufficiency attributable to #1 - #3 in the setting of previously known former tobacco abuse; with subsequent COPD and remote history of lung cancer and chronic hypoxic respiratory failure on 3L NC continuous - Wean additional supplemental oxygen as tolerated. Patient has no evidence of COPD exacerbation at this time. Continue scheduled and as needed nebulizers as before. 5. UA positive for Acute Cystitis; without hematuria adding to the medical complexity of #1 - #4 - Start ceftriaxone IV and await culture & sensitivity data. 6. Chronic atrial fibrillation; on diltiazem and apixaban twice daily adding to the burden of disease outlined from #1 - #5 - Maintain apixaban as previous but hold diltiazem due to hypotension. Will give digoxin IV as needed for breakthrough RVR if it occurs. 7. Overweight; with a BMI of 28 this admission - Weight loss will be recommended. Check TSH. 8. Essential hypertension; on metoprolol twice daily - Hold scheduled antihypertensives in light of hypotension. 9. Hyperlipidemia; on pravastatin - Resume statin. 10. DM-2; of unknown control on empagliflozin and insulin glargine 30 units subcu at bedtime plus diabetic polyneuropathy; currently not on treatment - Hold empagliflozin and decrease insulin glargine by ~30% to prevent hypoglycemia. Check FSBS q. AC/HS plus lowest-intensity SSI. 11. PAD; s/p aortofemoral bypass (~2009) - Noted. 12. Chronic anemia - Stable hemoglobin of 8.9 g/dL and MCV of 88.7 fL present on admission. 13. History of COVID-19 - Noted with no evidence of recurrence at this time. 14. History of lower extremity edema with venous insufficiency - Stable with no evidence of LE edema at this time. 15. BPH; s/p TURP on tamsulosin - Resume tamsulosin. 16. History of osteomyelitis of the Left ankle - Noted. 17. GERD; currently not on treatment - Start PPI if symptoms develop. 18. OA - Give acetaminophen prn for pain or fever. 19. DVT prophylaxis - Patient is already on apixaban for #5 which will be continued. Total time: Approximately (but not less than) 75 minutes. Charges/Coding Visit Charges Inpatient E&M: 19993 Init Hosp L3
[2025-04-05 20:04] LABS: Troponin T High Sens 2 HR 62 ng/L (<=22)
[2025-04-05] MEDS: Insulin Lispro 10 UNIT in Syringe 0 ML 6 UNIT IV (20:04)
--- OUTSIDE RECORDS SUMMARY | 2025-04-05 20:07 | XMS RPT_ITS | CCD ---
Author Organization [facility] CliniSyal Care Team Providers Care Home Help Aide Name Role Phone Dr. Tonio Fajardo Primary Care Provider [phone] Dr. Tonio Fajardo Referring Provider [phone] Issa Looney Attending Provider [phone] Tonio Fajardo DO Primary Care Provider Dr. Tyrell Uriarte Attending Provider Dr. Tonio Fajardo Primary Care Provider [phone] Dr. Tonio Fajardo Referring Provider Brittny FAIRING MAN, FAIRING MAN-C Lorie Attending Provider Dr. Russ Zamora Attending Provider Renard FAIRING MAN, FAIRING MAN-C Bonny E Attending Provider Renard FAIRING MAN, FAIRING MAN-C Bonny E Referring Provider Renard FAIRING MAN, FAIRING MAN-C Bonny E Other Provider Dr. Srini Choi Attending Provider Dr. Srini Choi Referring Provider Dr. Srini Choi Other Provider Dr. Mateo Shahid Attending Provider [phone] Issa Looney Attending Provider Dr. Kenyon Flores Referring Provider Unava ilable Dr. Srini Choi Referring Provider Dr. Tevin Allen Attending Provider [phone] Dr. Tonio Fajardo Primary Care Provider [phone] Dr. Tonio Fajardo Referring Provider Dr. Tyrell Uriarte Attending Provider Dr. Issa Looney Attending Provider Dr. Kenyon Flores Referring Provider Unava mp Mart FAIRING MAN, FAIRING MAN-C Lorie Attending Provider Dr. Russ Zamora Attending Provider Renard FAIRING MAN, FAIRING MAN-C Bonny E Attending Provider Renard FAIRING MAN, FAIRING MAN-C Bonny E Referring Provider [phone] Renard FAIRING MAN, FAIRING MAN-C Bonny E Other Provider Dr. Srini Choi Attending Provider Dr. Srini Choi Referring Provider Dr. Srini Choi Other Provider Dr. Mateo Shahid Attending Provider Roof FAIRING MAN, FAIRING MAN-C Iker Stephens Attending Provider Tonio Fajardo DO Primary Care Provider JESSIE RODRIGUEZ Referring Unavailable TONIO FAJARDO Primary Care Unavailable TONIO FAJARDO Primary Care Unavailable Dr. Tonio Fajardo Primary Care Provider Dr. Tonio Fajardo Referring Provider Dr. Tonio Fajardo Primary Care Provider Renard FAIRING MAN, FAIRING MAN-C Bonny E Attending Provider Renard FAIRING MAN, FAIRING MAN-C Bonny E Referring Provider Renard FAIRING MAN, FAIRING MAN-C Bonny E Other Provider Dr. Tonio Fajardo Referring Provider Dr. Russ Zamora Attending Provider Dr. Tonio Fajardo Primary Care Provider Dr. Srini Choi Attending Provider Dr. Srini Choi Referring Provider Renard FAIRING MAN, FAIRING MAN-C Bonny E Attending Provider [phone] Renard FAIRING MAN, FAIRING MAN-C Bonny E Referring Provider Renard FAIRING MAN, FAIRING MAN-C Bonny E Other Provider Dr. Tonio Fajardo Referring Provider Dr. Russ Zamora Attending Provider Dr. Tonio Fajardo Primary Care Provider Renard FAIRING MAN, FAIRING MAN-C Bonny E Attending Provider [phone] Renard FAIRING MAN, FAIRING MAN-C Bonny E Referring Provider [phone] Renard FAIRING MAN, FAIRING MAN-C Bonny E Other Provider Dr. Tonio Fajardo Referring Provider Dr. Russ Zamora Attending Provider Dr. Srini Choi Attending Provider Dr. Tyrell Uriarte Attending Provider Dr. Tonio Fajardo Primary Care Provider Renard FAIRING MAN, FAIRING MAN-C Bonny E Attending Provider Renard FAIRING MAN, FAIRING MAN-C Bonny E Referring Provider Renard FAIRING MAN, FAIRING MAN-C Bonny E Other Provider Dr. Tonio Fajardo Primary Care Provider Renard FAIRING MAN, FAIRING MAN-C Bonny E Attending Provider [phone] Renard FAIRING MAN, FAIRING MAN-C Bonny E Referring Provider Renard FAIRING MAN, FAIRING MAN-C Bonny E Other Provider [phone] Dr. Tonio Fajardo Primary Care Provider Renard FAIRING MAN, FAIRING MAN-C Bonny E Attending Provider Renard FAIRING MAN, FAIRING MAN-C Bonny E Referring Provider [phone] Renard FAIRING MAN, FAIRING MAN-C Bonny E Other Provider Dr. Tonio Fajardo Referring Provider Dr. Tonio Fajardo Primary Care Provider Renard FAIRING MAN, FAIRING MAN-C Bonny E Attending Provider Renard FAIRING MAN, FAIRING MAN-C Bonny E Referring Provider [phone] Renard FAIRING MAN, FAIRING MAN-C Bonny E Other Provider Dr. Tonio Fajardo Primary Care Provider Renard FAIRING MAN, FAIRING MAN-C Bonny E Attending Provider Renard FAIRING MAN, FAIRING MAN-C Bonny E Referring Provider Renard FAIRING MAN, FAIRING MAN-C Bonny E Other Provider Dr. Tonio Fajardo Primary Care Provider Renard FAIRING MAN, FAIRING MAN-C Bonny E Attending Provider Renard FAIRING MAN, FAIRING MAN-C Bonny E Referring Provider Renard FAIRING MAN, FAIRING MAN-C Bonny E Other Provider Dr. Tonio Fajardo Referring Provider Dr. Russ Zamora Attending Provider Dr. Tonio Fajardo Primary Care Provider Renard FAIRING MAN, FAIRING MAN-C Bonny E Attending Provider [phone] Renard FAIRING MAN, FAIRING MAN-C Bonny E Referring Provider Renard FAIRING MAN, FAIRING MAN-C Bonny E Other Provider Dr. Francisco Javier Lozada Attending Provider Dr. Joaquim Suárez Referring Provider Dr. Tonio Fajardo Primary Care Provider Renard FAIRING MAN, FAIRING MAN-C Bonny E Attending Provider [phone] Renard FAIRING MAN, FAIRING MAN-C Bonny E Referring Provider [phone] Renard CAMPUZANO, FAIRING MAN-C Bonny Melendez Other Provider Dr. Tonio Fajardo Referring Provider Dr. Russ Zamora Attending Provider Dr. Francisco Javier Lozada Attending Provider Dr. Joaquim Suárez Referring Provider Dr. Tonio Fajardo Primary Care Provider Brittny FAIRING MAN, FAIRING MAN-C Lorie Attending Provider RICKIE Alejandra Attending Provider [...] Referring Provider Brittny CAMPUZANO-CLorie Attending Provider Brittny FAIRING MAN-C, Lorie Referring Provider Brittny FAIRING MAN-C, Lorie Other Provider [phone] Tyrell Uriarte DO Attending Provider [phone] Tonio Fajardo DO Attending Provider Sera STRATTON, Dr. Solano Attending Provider Sera STRATTON, Dr. Solano Referring Provider Scotty MCGEE, Dr. Elizalde Primary Care Provider [place] , Dr. Milligan Other Provider Scotty MCGEE, [...] Shadi STRATTON, Dr. Graham Other Provider Michael FAIRING MAN-C, Iker Stephens Other Provider Leslie Alejandra Other [...] Unavailable Scotty, Tonio Primary Care Unavailable Mart FAIRING MAN, Lorie Referring Unavailable Mart FAIRING MAN, Lorie Consulting Unavailable Scotty, Tonio Primary Care Unavailable Tyrell Uriarte Attending Unavailable Brittny FAIRING MAN, Lorie Referring Unavailable Brittny FAIRING MANLorie Attending Unavailable Scotty, Tonio Primary Care Unavailable [...] Consulting Unavailabl e Satti, Reinaldo Consulting Unavailable [place]os, Santos Consulting Unavailable Roof FAIRING MAN, Iker Stephens Consulting Unavailable Leslie Alejandra Consulting [...] Consulting Unavailable Jose Lai Consulting Unavailable Aayush, [place] Consulting Unavailable Chago Miller Consulting Unavailable Willian Glaser Consulting Unavailable Nagajothi, Nagapradee Consulting Unavailabl e Satti, Reinaldo Consulting Unavailable [place], Santos Consulting Unavailable Roof FAIRING MAN, Iker Stephens Consulting Unavailable Leslie Alejandra Consulting [...] [IBUPROFEN] Drug Allergy 2 Shortness of Breath [facility] Work Phone: (1 source) Ibuprofen Drug Allergy 5 [facility] Repository Medications Current Medications Medication Drug Class(es) [...] 27, 2019 12:36pm take 1 capsule by [facility] once daily cholecalciferol, vitamin D3, (VITAMIN D-3) 10 mcg (400 unit) cap Take 400 Units by mouth once daily. Active Comment on above: Take 400 Units by [facility] once daily. colestipol hydrochloride 1000 mg oral [...] meals Start: 07-25-2023 take 1 capsule by [facility] once daily at mealtime Cranberry 500 mg [...] 1:00am Start: 04-14-2022 take 1 capsule by [facility] once daily as needed Docusate Sodium (Colace) 100 mg Capsule Active 100 MG PO DAILY NEEDED April 14, 2022 12:00am fish oil/borage/flax/om3,6,9 1 (OMEGA 3-6-9 COMPLEX ORAL) (5 sources) fish oil/borage/ flax/om3,6,9 1 (OMEGA 3-6-9 COMPLEX ORAL) Take by mouth. Active fish oil/borage/ flax/om3,6,9 1 (OMEGA 3-6-9 COMPLEX ORAL) Take by mouth. 0 Active Comment on above: Take by mouth. Fish,Bora,Flax Oils-Om3,6,9no1 ([place] 3-6-9) 1,200 mg Capsule (8 sources) Start: 11-02-2021 take 1 capsule by mouth twice daily Fish,Bora,Flax Oils-Om3,6,9no1 ([place] 3-6-9) 1,200 mg Capsule Active 1 CAP PO TWICE A DAY November 02, 2021 1:31pm Start: 11-02-2021 take 1 capsule by mo uth twice daily Fish,Bora,Flax Oils-Om3,6,9no1 ([place] 3-6-9) 1,200 mg Capsule Active 1 CAP [...] 07, 2014 12:00am November 19, 2019 3:48pm [id number] 200 actuat albuterol 0.09 mg/actuat metered dose [...] on above: Take 1 capsule by mo [facility] three times daily for 10 days. ciprofloxacin [...] 26, 2013 10:41am Fish Oil-Fat Acid Comb.8-Hb137 ([place] 3-6-9 1,200 Mg Softgel) 1,200 MG capsule (20 sources) Start: 12-03-2013 End: 03-21-2017 Fish Oil-Fat Acid Comb.8-Hb137 ([place] 3-6-9 1,200 Mg Softgel) 1,200 MG capsule Discontinued 1000 MG PO TWICE A DAY December 03, 2013 11:07am March 21, 2017 2:47pm Start: 12-03-2013 End: 03-21-2017 Fish Oil-Fat Acid Comb.8-Hb1 37 ([place] 3-6-9 1,200 Mg Softgel) 1,200 MG capsule Discontinued 1000 mg PO TWICE A DAY December 03, 2013 12:00am March 21, 2017 2:47pm Start: 12-03-2013 End: 03-21-2017 Fish Oil-Fat Acid Comb.8-Hb1 37 ([place] 3-6-9 1,200 Mg Softgel) 1,200 MG capsule Discontinued 1000 MG PO TWICE A DAY December 02, 2013 11:00pm March 21, 2017 1:47pm Start: 12-03-2013 End: 03-21-2017 Fish Oil-Fat Acid Comb.8-Hb1 37 ([place] 3-6-9 1,200 Mg Softgel) 1,200 MG capsule [...] 21, 2017 12:00am November 19, 2019 3:48pm Envghwjudtp-Trodrqlyw-Drtjbx er (9 sources) Start: 02-15-2024 End: 09-25-2024 Nfkfhjtkawg-Jmxligyye-Fazrcn er (Trelegy Ellipta) 200-62.5-25 mcg blister with device Discontinued 1 NMA INHALATION DAILY 3 February 15, 2024 12:00am September 25, 2024 2:02pm Start: 02-15-2024 End: 09-25-2024 Ymdwjlplekc-Mjbfmmpla-Ojbelq er (Trelegy Ellipta) 200-62.5-25 mcg blister with [...] 12:00am August 25, 2013 10:01am lactobacillus acidophilus [id number] unt oral capsule (20 sources) Start: 05-24-2022 [...] August 25, 2013 10:01am polyethylene glycol 3350 92845 mg powder for oral solution (20 sources) [...] Coronary atherosclerosis; 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] Onset: 04-03-2025 [...] sources) Long-term current use of anticoagulant; 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: [intermediate designer (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 of anticoagulants] 03-04-2025 Episodic Other aftercare (4 sources) Long-term current use of drug therapy; 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: [intermediate designer (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 of 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/antipl atelets] 03-15-2025 Episodic Other aftercare (1 source) intermediate designer (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 of anticoagulants; 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: [intermediate designer (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 of anticoagulants] Onset: 04-03-2025 Episodic [...] Auto (Unsp spec) [#/Vol] 0.87 10*3/uL 0.83-4.51 [facility] Absolute neutrophil countOrd ered By: Leslie Arriaga on 04-02-2025 Neutrophils (Bld) [#/Vol] 6.9 10*3/uL 2.0-7.7 [facility] Anion gap in Serum or Plasma Ordered By: Leslie Arriaga on 04-02-2025 Anion gap [Moles/Vol] 10 mmol/L 01-01 [facility] Automated lymphocyte count a s percentage of total leukocytesOrdered By: Leslie Arriaga on 04-02-2025 Lymphocytes/100 WBC Auto (Unsp spec) 10.0 % Low [facility] BUN/creatinine ratioOrdered By: Leslie Arriaga on 04-02-2025 Urea nitrogen/Creatinine [Mass ratio] 16.4 mg/mg 06-08 [facility] Basic Metabolic Profile (BMP )on 04-02-2025 BUN/CRE 16.4 RATIO Normal 06-08 [facility] Comment on above: Order Comment: Comme nts: Home Health to Draw TomorrowHom Health to Draw Tomorrow Performed By: #### L 100.0100, L503.7505, L500.2500 ####[facility] [address] [place], [address] Calcium [Mass/Vol] 9.2 mg/dL Normal 7.6-11.0 [facility] Comment on above: Order Comment: Comme nts: Home Health to Draw TomorrowHome Health to Draw Tomorrow Performed By: #### L 100.0100, L503.7505, L500.2500 ####[facility] [address] [place], [address] Chloride [Moles/Vol] 99 mmol/L Normal 98-108 [facility] Comment on above: Order Comment: Comme nts: Home Health to Draw TomorrowHome Health to Draw Tomorrow Performed By: #### L 100.0100, L503.7505, L500.2500 ####[facility] [address] [place], [address] CO2 [Moles/Vol] 27.8 mmol/L Normal 21.0-32.0 [facility] Comment on above: Order Comment: Comme nts: Home Health to Draw TomorrowHome Health to Draw Tomorrow Performed By: #### L 100.0100, L503.7505, L500.2500 ####[facility] [address] [place], [address] Creatinine [Mass/Vol] 2.13 mg/dL High 0.70-1.20 [facility] Comment on above: Order Comment: Comme nts: Home Health to Draw TomorrowHome Health to Draw Tomorrow Performed By: #### L 100.0100, L503.7505, L500.2500 ####[facility] [address] [place], [address] GAP 10 Normal 5-15 [facility] Comment on above: Order Comment: Comme nts: Home Health to Draw TomorrowHome Health to Draw Tomorrow Performed By: #### L 100.0100, L503.7505, L500.2500 ####[facility] [address] [place], [address] GFR/1.73 sq M.predicted among non-blacks MDRD (S/P/Bld) [Vol rate/Area] 31 mL/min/{1.73_m2} Low >60 [facility] Comment on above: Order Comment: Comme nts: Home Health to Draw TomorrowHome Health to Draw Tomorrow Result Comment: mL/m in/1.73m2 CKD-EPI Creatinine Equation (2020) Performed By: #### L 100.0100, L503.7505, L500.2500 ####[facility] [address] [place], [address] Glucose [Mass/Vol] 185 mg/dL High 70-99 [facility] Comment on above: Order Comment: Comme nts: Home Health to Draw TomorrowHome Health to Draw Tomorrow Performed By: #### L 100.0100, L503.7505, L500.2500 ####[facility] [address] [place], [address] Potassium [Moles/Vol] 5.6 mmol/L High 3.3-5.1 [facility] Comment on above: Order Comment: Comme nts: Home Health to Draw TomorrowHome Health to Draw Tomorrow Performed By: #### L 100.0100, L503.7505, L500.2500 ####[facility] [address] [place], [address] Sodium [Moles/Vol] 137 mmol/L Normal 133-145 [facility] Comment on above: Order Comment: Comme nts: Home Health to Draw TomorrowHome Health to Draw Tomorrow Performed By: #### L 100.0100, L503.7505, L500.2500 ####[facility] [address] [place], [address] Urea nitrogen [Mass/Vol] 35 mg/dL High 4-19 [facility] Comment on above: Order Comment: Comme nts: Home Health to Draw TomorrowHome Health to Draw Tomorrow Performed By: #### L 100.0100, L503.7505, L500.2500 ####[facility] [address] [place], [address] Basophil percentageOrdered B y: Leslie Steelonnell on 04-02-2025 Basophils/100 WBC (Bld) 0.3 % 0-1 [facility] CBC W/Diff, Automatedon 03-20-2024 Absolute Lymph 0.87 X10 3/uL Normal 0.83-4.51 [facility] Comment on above: Order Comment: Comme nts: Home Health to Draw Tomorrow Performed By: #### L 100.0100, L503.7505, L500.2500 ####[facility] [address] [place], [address] Absolute Neut 6.9 X10 3/uL Normal 2.0-7.7 [facility] Comment on above: Order Comment: Comme nts: Home Health to Draw Tomorrow Performed By: #### L 100.0100, L503.7505, L500.2500 ####[facility] [address] [place], [address] Basophils/100 WBC (Bld) 0.3 % Normal 0-1 [facility] Comment on above: Order Comment: Comme nts: Home Health to Draw Tomorrow Performed By: #### L 100.0100, L503.7505, L500.2500 ####[facility] [address] [place], [address] Eosinophils/100 WBC (Bld) 0.8 % Normal 0-5 [facility] Comment on above: Order Comment: Comme nts: Home Health to Draw Tomorrow Performed By: #### L 100.0100, L503.7505, L500.2500 ####[facility] [address] [place], [address] Erythrocyte distribution width (RBC) [Ratio] 17.1 % High 11.6-14.6 [facility] Comment on above: Order Comment: Comme nts: Home Health to Draw Tomorrow Performed By: #### L 100.0100, L503.7505, L500.2500 ####[facility] [address] [place], [address] Hematocrit (Bld) [Volume fraction] 30.6 % Low 40-54 [facility] Comment on above: Order Comment: Comme nts: Home Health to Draw Tomorrow Performed By: #### L 100.0100, L503.7505, L500.2500 ####[facility] [address] [place], [address] Hemoglobin (Bld) [Mass/Vol] 9.2 g/dL Low 13.0-16.5 [facility] Comment on above: Order Comment: Comme nts: Home Health to Draw Tomorrow Performed By: #### L 100.0100, L503.7505, L500.2500 ####[facility] [address] [place], [address] IG% 0.600 Normal 0.0-0.9 [facility] Comment on above: Order Comment: Comme nts: Home Health to Draw Tomorrow Result Comment: IG% - Immature Granulocytes (promyelocytes, myelocytes andmetamyelocytes) > 1% indicates that a LEFT SHIFT is Present. Performed By: #### L 100.0100, L503.7505, L500.2500 ####[facility] [address] [place], [address] Lymphocytes/100 WBC (Bld) 10.0 % Low 19-41 [facility] Comment on above: Order Comment: Comme nts: Home Health to Draw Tomorrow Performed By: #### L 100.0100, L503.7505, L500.2500 ####[facility] [address] [place], [address] MCH (RBC) [Entitic mass] 26.8 pg Low 27.0-32.0 [facility] Comment on above: Order Comment: Comme nts: Home Health to Draw Tomorrow Performed By: #### L 100.0100, L503.7505, L500.2500 ####[facility] [address] [place], [address] MCHC (RBC) [Mass/Vol] 30.1 g/dL Low 32-36 [facility] Comment on above: Order Comment: Comme nts: Home Health to Draw Tomorrow Performed By: #### L 100.0100, L503.7505, L500.2500 ####[facility] [address] [place], [address] MCV (RBC) [Entitic vol] 89.2 fL Normal 80-94 [facility] Comment on above: Order Comment: Comme nts: Home Health to Draw Tomorrow Performed By: #### L 100.0100, L503.7505, L500.2500 ####[facility] [address] [place], [address] Monocytes/100 WBC (Bld) 8.9 % Normal 0-10 [facility] Comment on above: Order Comment: Comme nts: Home Health to Draw Tomorrow Performed By: #### L 100.0100, L503.7505, L500.2500 ####[facility] [address] [place], [address] Neutrophils/100 WBC (Bld) 79.4 % High 47-70 [facility] Comment on above: Order Comment: Comme nts: Home Health to Draw Tomorrow Performed By: #### L 100.0100, L503.7505, L500.2500 ####[facility] [address] [place], [address] Nucleated RBC (Bld) [#/Vol] 0 10*3/uL Normal 0-5 [facility] Comment on above: Order Comment: Comme nts: Home Health to Draw Tomorrow Performed By: #### L 100.0100, L503.7505, L500.2500 ####[facility] [address] [place], [address] Platelet mean volume (Bld) [Entitic vol] 10.6 fL Normal 6.2-12.0 [facility] Comment on above: Order Comment: Comme nts: Home Health to Draw Tomorrow Performed By: #### L 100.0100, L503.7505, L500.2500 ####[facility] [address] [place], [address] Platelets (Bld) [#/Vol] 210 10*3/uL Normal 150-450 [facility] Comment on above: Order Comment: Comme nts: Home Health to Draw Tomorrow Performed By: #### L 100.0100, L503.7505, L500.2500 ####[facility] [address] [place], [address] RBC (Bld) [#/Vol] 3.43 10*6/uL Low 4.6-6.2 [facility] Comment on above: Order Comment: Comme nts: Home Health to Draw Tomorrow Performed By: #### L 100.0100, L503.7505, L500.2500 ####[facility] [address] [place], [address] RDW SD 55.3 fl High 35.1-43.9 [facility] Comment on above: Order Comment: Comme nts: Home Health to Draw Tomorrow Performed By: #### L 100.0100, L503.7505, L500.2500 ####[facility] [address] [place], [address] WBC (Bld) [#/Vol] 8.7 10*3/uL Normal 4.4-11.0 [facility] Comment on above: Order Comment: Comme nts: Home Health to Draw Tomorrow Performed By: #### L 100.0100, L503.7505, L500.2500 ####[facility] [address] [place], [address] Carbon dioxide, total [Moles /volume] in Central venous bloodOrdered By: Leslie Arriaga on 04-02-2025 CO2 [Moles/Vol] 27.8 mmol/L 21.0-32.0 [facility] Chloride assayOrdered By: Linsey Arriaga on 04-02-2025 Chloride [Moles/Vol] 99 mmol/L 98-108 [facility] Eosinophil percentageOrdered By: Leslie Arriaga on 04-02-2025 Eosinophils/100 WBC (Bld) 0.8 % 0-5 [facility] Erythrocyte distribution wid th ratioOrdered By: Leslie Arriaga on 04-02-2025 Erythrocyte distribution width (RBC) [Ratio] 17.1 % High 11.6-14.6 [facility] Erythrocyte distribution wid th standard deviationOrdered By: Leslie Arriaga on 04-02-2025 Erythrocyte distribution width (RBC) [Ratio] 55.3 fl High 35.1-43.9 [facility] Glomerular filtration rate ( GFR) estimation/1.73 sq m using serum, plasma, or whole bOrdered By: Leslie Arriaga on 04-02-2025 GFR/1.73 sq M.predicted among non-blacks MDRD (S/P/Bld) [Vol rate/Area] 31 mL/min/{1.73_m2} Low >60 [facility] Comment on above: mL/min/1.73m2 CKD-EP I Creatinine Equation (2020) Hematocrit Auto (Bld) [Volum e fraction]Ordered By: Leslie Arriaga on 04-02-2025 Hematocrit (Bld) [Volume fraction] 30.6 % Low 40-54 [facility] Hemoglobin measurementOrdere d By: Leslie Arriaga on 04-02-2025 Hemoglobin (Bld) [Mass/Vol] 9.2 g/dL Low 13.0-16.5 [facility] Immature granulocytes/100 WB C Auto (Bld)Ordered By: Leslie Arriaga on 04-02-2025 Immature granulocytes/100 WBC (Bld) 0.600 % 0.0-0.9 [facility] Comment on above: IG% - Immature Granu locytes (promyelocytes, myelocytes and metamyelocytes) > 1% indicates that a LEFT SHIFT is Present. MCV (mean corpuscular volume ) determinationOrdered By: Leslie Arriaga on 04-02-2025 MCV (RBC) [Entitic vol] 89.2 fL 80-94 [facility] Mean corpuscular hemoglobin (MCH) determinationOrdered By: Leslie Arriaga on 04-02-2025 MCH (RBC) [Entitic mass] 26.8 pg Low 27.0-32.0 [facility] Mean corpuscular hemoglobin concentration (MCHC) determinationOrdered By: Leslie Arriaga on 04-02-2025 MCHC (RBC) [Mass/Vol] 30.1 g/dL Low 32-36 [facility] Mean platelet volume determi nationOrdered By: Leslie Arriaga on 04-02-2025 Platelet mean volume (Bld) [Entitic vol] 10.6 fL 6.2-12.0 [facility] Monocyte percentageOrdered B y: Leslie Arriaga on 04-02-2025 Monocytes/100 WBC (Bld) 8.9 % 0-10 [facility] Natriuretic peptide.B prohor girish N-Terminal [Mass/volume] in Serum or PlasmaOrdered By: Leslie Arriaga on 04-02-2025 Natriuretic peptide.B prohormone N-Terminal [Mass/Vol] 2526 pg/mL High <1800 [facility] Comment on above: Heart Failure Unlike ly: < 300 pg/mLHeart Failure Likely< 50 Years: > 450 pg/mL50-75 Years: > 900 pg/mL>75 Years: > 1800 pg/mL Neutrophil percentageOrdered By: Leslie Arriaga on 04-02-2025 Neutrophils/100 WBC (Bld) 79.4 % High 47-70 [facility] Nucleated red blood cell per centageOrdered By: Leslie Arriaga on 04-02-2025 Nucleated RBC/100 WBC (Bld) [Ratio] 0 % 0-5 [facility] Platelet countOrdered By: Linsey Arriaga on 04-02-2025 Platelets (Bld) [#/Vol] 210 10*3/uL 150-450 [facility] Potassium measurement (mass/ volume)Ordered By: Leslie Arriaga on 04-02-2025 Potassium (Unsp spec) [Mass/Vol] 5.6 mmol/L High 3.3-5.1 [facility] Pro- Brain NATRIURETIC PEPTI Adrienne 04-02-2025 Natriuretic peptide B (Bld) [Mass/Vol] 2526 pg/mL High <=1800 [facility] Comment on above: Order Comment: Comme nts: Home Health to Draw Tomorrow Result Comment: Hear t Failure Unlikely: < 300 pg/mLHeart Failure Likely< 50 Years: > 450 pg/mL50-75 Years: > 900 pg/mL>75 Years: > 1800 pg/mL Performed By: #### L 100.0100, L503.7505, L500.2500 ####[facility] [address] [place], [address] RBC Auto (Bld) [#/Vol]Ordere d By: Leslie Arriaga on 04-02-2025 RBC (Bld) [#/Vol] 3.43 10*6/uL Low 4.6-6.2 [facility] Serum creatinine measurement (mass/volume)Ordered By: Leslie Arriaga on 04-02-2025 Creatinine [Mass/Vol] 2.13 mg/dL High 0.70-1.20 [facility] Serum glucose measurement (m ass/volume)Ordered By: Leslie Arriaga on 04-02-2025 Glucose [Mass/Vol] 185 mg/dL High 70-99 [facility] Serum or plasma calcium kingsley urement (mass/volume)Ordered By: Leslie Arriaga on 04-02-2025 Calcium [Mass/Vol] 9.2 mg/dL 7.6-11.0 [facility] Serum or plasma urea nitroge n measurement (mass/volume)Ordered By: Leslie Arriaga on 04-02-2025 Urea nitrogen [Mass/Vol] 35 mg/dL High 4-19 [facility] Sodium levelOrdered By: Brian julien Corina on 04-02-2025 Sodium [Moles/Vol] 137 mmol/L 133-145 [facility] White blood cell (WBC) count Ordered By: Leslie Arriaga on 04-02-2025 WBC (Bld) [#/Vol] 8.7 10*3/uL 4.4-11.0 [facility] Absolute lymphocyte countOrd ered By: Tonio Fajardo on 03-18-2025 Lymphocytes Auto (Unsp spec) [#/Vol] 0.88 10*3/uL 0.83-4.51 [facility] Absolute neutrophil countOrd ered By: Tonio Fajardo on 03-18-2025 Neutrophils (Bld) [#/Vol] 5.9 10*3/uL 2.0-7.7 [facility] Anion gap in Serum or Plasma Ordered By: Tonio Fajardo on 03-18-2025 Anion gap [Moles/Vol] 11 mmol/L - [facility] Automated lymphocyte count a s percentage of total leukocytesOrdered By: Tonio Fajardo on 03-18-2025 Lymphocytes/100 WBC Auto (Unsp spec) 11.2 % Low - [facility] BUN/creatinine ratioOrdered By: Tonio Fajardo on 03-18-2025 Urea nitrogen/Creatinine [Mass ratio] 14.8 mg/mg 06-08 [facility] Basic Metabolic Profile (BMP )on 03-18-2025 BUN/CRE 14.8 RATIO Normal 06-08 [facility] Comment on above: Performed By: #### L 500.2500, L100.0100 ####[facility] [address] [place], [address] Calcium [Mass/Vol] 9.5 mg/dL Normal 7.6-11.0 [facility] Comment on above: Performed By: #### L 500.2500, L100.0100 ####[facility] [address] [place], [address] Chloride [Moles/Vol] 99 mmol/L Normal 98-108 [facility] Comment on above: Performed By: #### L 500.2500, L100.0100 ####[facility] [address] [place], [address] CO2 [Moles/Vol] 26.7 mmol/L Normal 21.0-32.0 [facility] Comment on above: Performed By: #### L 500.2500, L100.0100 ####[facility] [address] [place], [address] Creatinine [Mass/Vol] 1.59 mg/dL High 0.70-1.20 [facility] Comment on above: Performed By: #### L 500.2500, L100.0100 ####[facility] [address] [place], [address] GAP 11 Normal 5-15 [facility] Comment on above: Performed By: #### L 500.2500, L100.0100 ####[facility] [address] [place], [address] GFR/1.73 sq M.predicted among non-blacks MDRD (S/P/Bld) [Vol rate/Area] 44 mL/min/{1.73_m2} Low >60 [facility] Comment on above: Result Comment: mL/m in/1.73m2 CKD-EPI Creatinine Equation (2020) Performed By: #### L 500.2500, L100.0100 ####[facility] [address] [place], [address] Glucose [Mass/Vol] 223 mg/dL High 70-99 [facility] Comment on above: Performed By: #### L 500.2500, L100.0100 ####[facility] [address] [place], [address] Potassium [Moles/Vol] 5.2 mmol/L High 3.3-5.1 [facility] Comment on above: Performed By: #### L 500.2500, L100.0100 ####[facility] [address] [place], [address] Sodium [Moles/Vol] 137 mmol/L Normal 133-145 [facility] Comment on above: Performed By: #### L 500.2500, L100.0100 ####[facility] [address] [place], [address] Urea nitrogen [Mass/Vol] 24 mg/dL High 4-19 [facility] Comment on above: Performed By: #### L 500.2500, L100.0100 ####[facility] [address] [place], [address] Basophil percentageOrdered B y: Tonio Fajardo on 03-18-2025 Basophils/100 WBC (Bld) 0.5 % 0-1 [facility] CBC W/Diff, Automatedon 02-19 0-2024 Absolute Lymph 0.88 X10 3/uL Normal 0.83-4.51 [facility] Comment on above: Performed By: #### L 500.2500, L100.0100 ####[facility] [address] [place], [address] Absolute Neut 5.9 X10 3/uL Normal 2.0-7.7 [facility] Comment on above: Performed By: #### L 500.2500, L100.0100 ####[facility] [address] [place], [address] Basophils/100 WBC (Bld) 0.5 % Normal 0-1 [facility] Comment on above: Performed By: #### L 500.2500, L100.0100 ####[facility] [address] [place], [address] Eosinophils/100 WBC (Bld) 3.1 % Normal 0-5 [facility] Comment on above: Performed By: #### L 500.2500, L100.0100 ####[facility] [address] [place], [address] Erythrocyte distribution width (RBC) [Ratio] 16.4 % High 11.6-14.6 [facility] Comment on above: Performed By: #### L 500.2500, L100.0100 ####[facility] [address] [place], [address] Hematocrit (Bld) [Volume fraction] 32.6 % Low 40-54 [facility] Comment on above: Performed By: #### L 500.2500, L100.0100 ####[facility] [address] [place], [address] Hemoglobin (Bld) [Mass/Vol] 9.7 g/dL Low 13.0-16.5 [facility] Comment on above: Performed By: #### L 500.2500, L100.0100 ####[facility] [address] [place], [address] IG% 1.100 High 0.0-0.9 [facility] Comment on above: Result Comment: IG% - Immature Granulocytes (promyelocytes, myelocytes andmetamyelocytes) > 1% indicates that a LEFT SHIFT is Present. Performed By: #### L 500.2500, L100.0100 ####[facility] [address] [place], [address] Lymphocytes/100 WBC (Bld) 11.2 % Low 19-41 [facility] Comment on above: Performed By: #### L 500.2500, L100.0100 ####[facility] [address] [place], [address] MCH (RBC) [Entitic mass] 26.8 pg Low 27.0-32.0 [facility] Comment on above: Performed By: #### L 500.2500, L100.0100 ####[facility] [address] [place], [address] MCHC (RBC) [Mass/Vol] 29.8 g/dL Low 32-36 [facility] Comment on above: Performed By: #### L 500.2500, L100.0100 ####[facility] [address] [place], [address] MCV (RBC) [Entitic vol] 90.1 fL Normal 80-94 [facility] Comment on above: Performed By: #### L 500.2500, L100.0100 ####[facility] [address] [place], [address] Monocytes/100 WBC (Bld) 9.4 % Normal 0-10 [facility] Comment on above: Performed By: #### L 500.2500, L100.0100 ####[facility] [address] [place], [address] Neutrophils/100 WBC (Bld) 74.7 % High 47-70 [facility] Comment on above: Performed By: #### L 500.2500, L100.0100 ####[facility] [address] [place], [address] Nucleated RBC (Bld) [#/Vol] 0 10*3/uL Normal 0-5 [facility] Comment on above: Performed By: #### L 500.2500, L100.0100 ####[facility] [address] [place], [address] Platelet mean volume (Bld) [Entitic vol] 10.4 fL Normal 6.2-12.0 [facility] Comment on above: Performed By: #### L 500.2500, L100.0100 ####[facility] [address] [place], [address] Platelets (Bld) [#/Vol] 252 10*3/uL Normal 150-450 [facility] Comment on above: Performed By: #### L 500.2500, L100.0100 ####[facility] [address] [place], [address] RBC (Bld) [#/Vol] 3.62 10*6/uL Low 4.6-6.2 [facility] Comment on above: Performed By: #### L 500.2500, L100.0100 ####[facility] [address] [place], [address] RDW SD 53.8 fl High 35.1-43.9 [facility] Comment on above: Performed By: #### L 500.2500, L100.0100 ####[facility] [address] [place], [address] WBC (Bld) [#/Vol] 7.9 10*3/uL Normal 4.4-11.0 [facility] Comment on above: Performed By: #### L 500.2500, L100.0100 ####[facility] [address] [place], [address] Carbon dioxide, total [Moles /volume] in Central venous bloodOrdered By: Tonio Fajardo on 03-18-2025 CO2 [Moles/Vol] 26.7 mmol/L 21.0-32.0 [facility] Chloride assayOrdered By: Min Fajardo on 03-18-2025 Chloride [Moles/Vol] 99 mmol/L 98-108 [facility] Eosinophil percentageOrdered By: Tonio Fajardo on 03-18-2025 Eosinophils/100 WBC (Bld) 3.1 % 0-5 [facility] Erythrocyte distribution wid th ratioOrdered By: Tonio Fajardo on 03-18-2025 Erythrocyte distribution width (RBC) [Ratio] 16.4 % High 11.6-14.6 [facility] Erythrocyte distribution wid th standard deviationOrdered By: Tonio Fajardo on 03-18-2025 Erythrocyte distribution width (RBC) [Ratio] 53.8 fl High 35.1-43.9 [facility] Glomerular filtration rate ( GFR) estimation/1.73 sq m using serum, plasma, or whole bOrdered By: Tonio Fajardo on 03-18-2025 GFR/1.73 sq M.predicted among non-blacks MDRD (S/P/Bld) [Vol rate/Area] 44 mL/min/{1.73_m2} Low >60 [facility] Comment on above: mL/min/1.73m2 CKD-EP I Creatinine Equation (2020) Hematocrit Auto (Bld) [Volum e fraction]Ordered By: Tonio Fajardo on 03-18-2025 Hematocrit (Bld) [Volume fraction] 32.6 % Low 40-54 [facility] Hemoglobin measurementOrdere d By: Tonio Fajardo on 03-18-2025 Hemoglobin (Bld) [Mass/Vol] 9.7 g/dL Low 13.0-16.5 [facility] Immature granulocytes/100 WB C Auto (Bld)Ordered By: Tonio Fajardo on 03-18-2025 Immature granulocytes/100 WBC (Bld) 1.100 % High 0.0-0.9 [facility] Comment on above: IG% - Immature Granu locytes (promyelocytes, myelocytes and metamyelocytes) > 1% indicates that a LEFT SHIFT is Present. MCV (mean corpuscular volume ) determinationOrdered By: Tonio Fajardo on 03-18-2025 MCV (RBC) [Entitic vol] 90.1 fL 80-94 [facility] Mean corpuscular hemoglobin (MCH) determinationOrdered By: Tonio Fajardo on 03-18-2025 MCH (RBC) [Entitic mass] 26.8 pg Low 27.0-32.0 [facility] Mean corpuscular hemoglobin concentration (MCHC) determinationOrdered By: Tonio Fajardo on 03-18-2025 MCHC (RBC) [Mass/Vol] 29.8 g/dL Low 32-36 [facility] Mean platelet volume determi nationOrdered By: Tonio Fajardo on 03-18-2025 Platelet mean volume (Bld) [Entitic vol] 10.4 fL 6.2-12.0 [facility] Monocyte percentageOrdered B y: Tonio Fajardo on 07-30-2025 Monocytes/100 WBC (Bld) 9.4 % 0-10 [facility] Neutrophil percentageOrdered By: Tonio Fajardo on 03-18-2025 Neutrophils/100 WBC (Bld) 74.7 % High 47-70 [facility] Nucleated red blood cell per centageOrdered By: Tonio Fajardo on 03-18-2025 Nucleated RBC/100 WBC (Bld) [Ratio] 0 % 0-5 [facility] Platelet countOrdered By: Min Fajardo on 03-18-2025 Platelets (Bld) [#/Vol] 252 10*3/uL 150-450 [facility] Potassium measurement (mass/ volume)Ordered By: Tonio Fajardo on 03-18-2025 Potassium (Unsp spec) [Mass/Vol] 5.2 mmol/L High 3.3-5.1 [facility] RBC Auto (Bld) [#/Vol]Ordere d By: Tonio Fajardo on 03-18-2025 RBC (Bld) [#/Vol] 3.62 10*6/uL Low 4.6-6.2 [facility] Serum creatinine measurement (mass/volume)Ordered By: Tonio Fajardo on 03-18-2025 Creatinine [Mass/Vol] 1.59 mg/dL High 0.70-1.20 [facility] Serum glucose measurement (m ass/volume)Ordered By: Tonio Fajardo on 03-18-2025 Glucose [Mass/Vol] 223 mg/dL High 70-99 [facility] Serum or plasma calcium kingsley urement (mass/volume)Ordered By: Tonio Fajardo on 03-18-2025 Calcium [Mass/Vol] 9.5 mg/dL 7.6-11.0 [facility] Serum or plasma urea nitroge n measurement (mass/volume)Ordered By: Tonio Fajardo on 03-18-2025 Urea nitrogen [Mass/Vol] 24 mg/dL High 4-19 [facility] Sodium levelOrdered By: Tonio Fajardo on 03-18-2025 Sodium [Moles/Vol] 137 mmol/L 133-145 [facility] White blood cell (WBC) count Ordered By: Tonio Fajardo on 03-18-2025 WBC (Bld) [#/Vol] 7.9 10*3/uL 4.4-11.0 [facility] Cardiology Visit Reporton Cardiology Visit Report Normal [facility] Emergency Department Summary on 03-15-2025 Emergency Department Summary Normal [facility] Basic Metabolic Profile (BMP )on 03-11-2025 BUN Normal 4-19 [facility] Comment on above: Result Comment: Canc elled via OM: Order cancelled - Patient discharged Performed By: #### L 500.2500, L100.0100 ####[facility] [address] [place], [address] BUN/CRE Normal 10-20 [facility] Comment on above: Result Comment: Canc elled via OM: Order cancelled - Patient discharged Performed By: #### L 500.2500, L100.0100 ####[facility] [address] [place], [address] Calcium Normal 7.6-11.0 [facility] Comment on above: Result Comment: Canc elled via OM: Order cancelled - Patient discharged Performed By: #### L 500.2500, L100.0100 ####[facility] [address] [place], [address] CL Normal 98-108 [facility] Comment on above: Result Comment: Canc elled via OM: Order cancelled - Patient discharged Performed By: #### L 500.2500, L100.0100 ####[facility] [address] [place], [address] CO2 Normal 21.0-32.0 [facility] Comment on above: Result Comment: Canc elled via OM: Order cancelled - Patient discharged Performed By: #### L 500.2500, L100.0100 ####[facility] [address] [place], [address] CREAT,SERUM Normal 0.70-1.20 [facility] Comment on above: Result Comment: Canc elled via OM: Order cancelled - Patient discharged Performed By: #### L 500.2500, L100.0100 ####[facility] [address] [place], [address] eGFR Normal >60 [facility] Comment on above: Result Comment: Canc elled via OM: Order cancelled - Patient discharged Performed By: #### L 500.2500, L100.0100 ####[facility] [address] [place], [address] GAP Normal 5-15 [facility] Comment on above: Result Comment: Canc elled via OM: Order cancelled - Patient discharged Performed By: #### L 500.2500, L100.0100 ####[facility] [address] [place], [address] GLU Normal 70-99 [facility] Comment on above: Result Comment: Canc elled via OM: Order cancelled - Patient discharged Performed By: #### L 500.2500, L100.0100 ####[facility] [address] [place], [address] Potassium Normal 3.3-5.1 [facility] Comment on above: Result Comment: Canc elled via OM: Order cancelled - Patient discharged Performed By: #### L 500.2500, L100.0100 ####[facility] [address] [place], [address] Basic Metabolic Profile (BMP) Normal 133-145 [facility] Comment on above: Result Comment: Canc elled via OM: Order cancelled - Patient discharged Performed By: #### L 500.2500, L100.0100 ####[facility] [address] [place], [address] CBC W/Diff, Automatedon 07-2 Absolute Neut Normal 2.0-7.7 [facility] Comment on above: Result Comment: Canc elled via OM: Order cancelled - Patient discharged Performed By: #### L 500.2500, L100.0100 ####[facility] [address] [place], [address] HCT Normal 40-54 [facility] Comment on above: Result Comment: Canc elled via OM: Order cancelled - Patient discharged Performed By: #### L 500.2500, L100.0100 ####[facility] [address] [place], [address] HGB Normal 13.0-16.5 [facility] Comment on above: Result Comment: Canc elled via OM: Order cancelled - Patient discharged Performed By: #### L 500.2500, L100.0100 ####[facility] [address] [place], [address] MCH Normal 27.0-32.0 [facility] Comment on above: Result Comment: Canc elled via OM: Order cancelled - Patient discharged Performed By: #### L 500.2500, L100.0100 ####[facility] [address] [place], [address] MCHC Normal 32-36 [facility] Comment on above: Result Comment: Canc elled via OM: Order cancelled - Patient discharged Performed By: #### L 500.2500, L100.0100 ####[facility] [address] [place], [address] MCV Normal 80-94 [facility] Comment on above: Result Comment: Canc elled via OM: Order cancelled - Patient discharged Performed By: #### L 500.2500, L100.0100 ####[facility] [address] [place], [address] NEUT% Normal 47-70 [facility] Comment on above: Result Comment: Canc elled via OM: Order cancelled - Patient discharged Performed By: #### L 500.2500, L100.0100 ####[facility] [address] [place], [address] PLT Normal 150-450 [facility] Comment on above: Result Comment: Canc elled via OM: Order cancelled - Patient discharged Performed By: #### L 500.2500, L100.0100 ####[facility] [address] [place], [address] RBC Normal 4.6-6.2 [facility] Comment on above: Result Comment: Canc elled via OM: Order cancelled - Patient discharged Performed By: #### L 500.2500, L100.0100 ####[facility] [address] [place], [address] RDW CV Normal 11.6-14.6 [facility] Comment on above: Result Comment: Canc elled via OM: Order cancelled - Patient discharged Performed By: #### L 500.2500, L100.0100 ####[facility] [address] [place], [address] RDW SD Normal 35.1-43.9 [facility] Comment on above: Result Comment: Canc elled via OM: Order cancelled - Patient discharged Performed By: #### L 500.2500, L100.0100 ####[facility] [address] [place], [address] WBC Normal 4.4-11.0 [facility] Comment on above: Result Comment: Canc elled via OM: Order cancelled - Patient discharged Performed By: #### L 500.2500, L100.0100 ####[facility] [address] [place], [address] Basic Metabolic Profile (BMP )on 03-10-2025 BUN Normal 4-19 [facility] Comment on above: Result Comment: Canc elled via OM: Order cancelled - Patient discharged Performed By: #### L 500.2500, L100.0100 ####[facility] [address] [place], [address] BUN/CRE Normal 10-20 [facility] Comment on above: Result Comment: Canc elled via OM: Order cancelled - Patient discharged Performed By: #### L 500.2500, L100.0100 ####[facility] [address] [place], [address] Calcium Normal 7.6-11.0 [facility] Comment on above: Result Comment: Canc elled via OM: Order cancelled - Patient discharged Performed By: #### L 500.2500, L100.0100 ####[facility] [address] [place], [address] CL Normal 98-108 [facility] Comment on above: Result Comment: Canc elled via OM: Order cancelled - Patient discharged Performed By: #### L 500.2500, L100.0100 ####[facility] [address] [place], [address] CO2 Normal 21.0-32.0 [facility] Comment on above: Result Comment: Canc elled via OM: Order cancelled - Patient discharged Performed By: #### L 500.2500, L100.0100 ####[facility] [address] [place], [address] CREAT,SERUM Normal 0.70-1.20 [facility] Comment on above: Result Comment: Canc elled via OM: Order cancelled - Patient discharged Performed By: #### L 500.2500, L100.0100 ####[facility] [address] [place], [address] eGFR Normal >60 [facility] Comment on above: Result Comment: Canc elled via OM: Order cancelled - Patient discharged Performed By: #### L 500.2500, L100.0100 ####[facility] [address] [place], [address] GAP Normal 5-15 [facility] Comment on above: Result Comment: Canc elled via OM: Order cancelled - Patient discharged Performed By: #### L 500.2500, L100.0100 ####[facility] [address] [place], [address] GLU Normal 70-99 [facility] Comment on above: Result Comment: Canc elled via OM: Order cancelled - Patient discharged Performed By: #### L 500.2500, L100.0100 ####[facility] [address] [place], [address] Potassium Normal 3.3-5.1 [facility] Comment on above: Result Comment: Canc elled via OM: Order cancelled - Patient discharged Performed By: #### L 500.2500, L100.0100 ####[facility] [address] [place], [address] Basic Metabolic Profile (BMP) Normal 133-145 [facility] Comment on above: Result Comment: Canc elled via OM: Order cancelled - Patient discharged Performed By: #### L 500.2500, L100.0100 ####[facility] [address] [place], [address] CBC W/Diff, Automatedon 07-2 Absolute Neut Normal 2.0-7.7 [facility] Comment on above: Result Comment: Canc elled via OM: Order cancelled - Patient discharged Performed By: #### L 500.2500, L100.0100 ####[facility] [address] [place], [address] HCT Normal 40-54 [facility] Comment on above: Result Comment: Canc elled via OM: Order cancelled - Patient discharged Performed By: #### L 500.2500, L100.0100 ####[facility] [address] [place], [address] HGB Normal 13.0-16.5 [facility] Comment on above: Result Comment: Canc elled via OM: Order cancelled - Patient discharged Performed By: #### L 500.2500, L100.0100 ####[facility] [address] [place], [address] MCH Normal 27.0-32.0 [facility] Comment on above: Result Comment: Canc elled via OM: Order cancelled - Patient discharged Performed By: #### L 500.2500, L100.0100 ####[facility] [address] [place], [address] MCHC Normal 32-36 [facility] Comment on above: Result Comment: Canc elled via OM: Order cancelled - Patient discharged Performed By: #### L 500.2500, L100.0100 ####[facility] [address] [place], [address] MCV Normal 80-94 [facility] Comment on above: Result Comment: Canc elled via OM: Order cancelled - Patient discharged Performed By: #### L 500.2500, L100.0100 ####[facility] [address] [place], [address] NEUT% Normal 47-70 [facility] Comment on above: Result Comment: Canc elled via OM: Order cancelled - Patient discharged Performed By: #### L 500.2500, L100.0100 ####[facility] [address] [place], [address] PLT Normal 150-450 [facility] Comment on above: Result Comment: Canc elled via OM: Order cancelled - Patient discharged Performed By: #### L 500.2500, L100.0100 ####[facility] [address] [place], [address] RBC Normal 4.6-6.2 [facility] Comment on above: Result Comment: Canc elled via OM: Order cancelled - Patient discharged Performed By: #### L 500.2500, L100.0100 ####[facility] [address] [place], [address] RDW CV Normal 11.6-14.6 [facility] Comment on above: Result Comment: Canc elled via OM: Order cancelled - Patient discharged Performed By: #### L 500.2500, L100.0100 ####[facility] [address] [place], [address] RDW SD Normal 35.1-43.9 [facility] Comment on above: Result Comment: Canc elled via OM: Order cancelled - Patient discharged Performed By: #### L 500.2500, L100.0100 ####[facility] [address] [place], [address] WBC Normal 4.4-11.0 [facility] Comment on above: Result Comment: Canc elled via OM: Order cancelled - Patient discharged Performed By: #### L 500.2500, L100.0100 ####[facility] [address] [place], [address] Absolute lymphocyte countOrd ered By: Deric Lantigua on 03-09-2025 Lymphocytes Auto (Unsp spec) [#/Vol] 0.53 10*3/uL Low 0.83-4.51 [facility] Absolute neutrophil countOrd ered By: Deric Lantigua on 03-09-2025 Neutrophils (Bld) [#/Vol] 4.0 10*3/uL 2.0-7.7 [facility] Anion gap in Serum or Plasma Ordered By: Deric Lantigua on 03-09-2025 Anion gap [Moles/Vol] 10 mmol/L 5-15 [facility] Automated lymphocyte count a s percentage of total leukocytesOrdered By: Deric Lantigua on 03-09-2025 Lymphocytes/100 WBC Auto (Unsp spec) 9.7 % Low 19-41 [facility] BUN/creatinine ratioOrdered By: Deric Lantigua on 03-09-2025 Urea nitrogen/Creatinine [Mass ratio] 20.8 mg/mg High 10-20 [facility] Basic Metabolic Profile (BMP )on 03-09-2025 BUN/CRE 20.8 RATIO High 10-20 [facility] Comment on above: Performed By: #### L 100.0100, L500.2500 ####[facility] [address] [place], [address] Calcium [Mass/Vol] 9.0 mg/dL Normal 7.6-11.0 [facility] Comment on above: Performed By: #### L 100.0100, L500.2500 ####[facility] [address] [place], [address] Chloride [Moles/Vol] 101 mmol/L Normal 98-108 [facility] Comment on above: Performed By: #### L 100.0100, L500.2500 ####[facility] [address] [place], [address] CO2 [Moles/Vol] 26.6 mmol/L Normal 21.0-32.0 [facility] Comment on above: Performed By: #### L 100.0100, L500.2500 ####[facility] [address] [place], [address] Creatinine [Mass/Vol] 2.41 mg/dL High 0.70-1.20 [facility] Comment on above: Performed By: #### L 100.0100, L500.2500 ####[facility] [address] [place], [address] ECRCL 24.14 ml/min Low 50-250 [facility] Comment on above: Performed By: #### L 100.0100, L500.2500 ####[facility] [address] [place], [address] GAP 10 Normal 5-15 [facility] Comment on above: Performed By: #### L 100.0100, L500.2500 ####[facility] [address] [place], [address] GFR/1.73 sq M.predicted among non-blacks MDRD (S/P/Bld) [Vol rate/Area] 26 mL/min/{1.73_m2} Low >60 [facility] Comment on above: Result Comment: mL/m in/1.73m2 CKD-EPI Creatinine Equation (2020) Performed By: #### L 100.0100, L500.2500 ####[facility] [address] [place], [address] Glucose [Mass/Vol] 118 mg/dL High 70-99 [facility] Comment on above: Performed By: #### L 100.0100, L500.2500 ####[facility] [address] [place], [address] Potassium [Moles/Vol] 4.3 mmol/L Normal 3.3-5.1 [facility] Comment on above: Performed By: #### L 100.0100, L500.2500 ####[facility] [address] [place], [address] Sodium [Moles/Vol] 138 mmol/L Normal 133-145 [facility] Comment on above: Performed By: #### L 100.0100, L500.2500 ####[facility] [address] [place], [address] Urea nitrogen [Mass/Vol] 50 mg/dL High 4-19 [facility] Comment on above: Performed By: #### L 100.0100, L500.2500 ####[facility] [address] [place], [address] Basophil percentageOrdered B y: Deric Lantigua on 03-09-2025 Basophils/100 WBC (Bld) 0.2 % 0-1 [facility] Bedside Glucoseon 03-09-2025 FINGERSTICK GLU 184 mg/dL High 74-106 [facility] Comment on above: Result Comment: KODY GEMENT OF PATIENT CARE PER NURSING PROTOCOL Performed By: #### L 501.080 ####[facility] [address] [place], [address] FINGERSTICK GLU 112 mg/dL High 74-106 [facility] Comment on above: Result Comment: KODY GEMENT OF PATIENT CARE PER NURSING PROTOCOL Performed By: #### L 501.080 ####[facility] [address] [place], [address] CBC W/Diff, Automatedon 07-2 -2024 Absolute Lymph 0.53 X10 3/uL Low 0.83-4.51 [facility] Comment on above: Performed By: #### L 100.0100, L500.2500 ####[facility] [address] [place], [address] Absolute Neut 4.0 X10 3/uL Normal 2.0-7.7 [facility] Comment on above: Performed By: #### L 100.0100, L500.2500 ####[facility] [address] [place], [address] Basophils/100 WBC (Bld) 0.2 % Normal 0-1 [facility] Comment on above: Performed By: #### L 100.0100, L500.2500 ####[facility] [address] [place], [address] Eosinophils/100 WBC (Bld) 4.8 % Normal 0-5 [facility] Comment on above: Performed By: #### L 100.0100, L500.2500 ####[facility] [address] [place], [address] Erythrocyte distribution width (RBC) [Ratio] 16.3 % High 11.6-14.6 [facility] Comment on above: Performed By: #### L 100.0100, L500.2500 ####[facility] [address] [place], [address] Hematocrit (Bld) [Volume fraction] 29.6 % Low 40-54 [facility] Comment on above: Performed By: #### L 100.0100, L500.2500 ####[facility] [address] [place], [address] Hemoglobin (Bld) [Mass/Vol] 9.3 g/dL Low 13.0-16.5 [facility] Comment on above: Performed By: #### L 100.0100, L500.2500 ####[facility] [address] [place], [address] IG% 0.600 Normal 0.0-0.9 [facility] Comment on above: Result Comment: IG% - Immature Granulocytes (promyelocytes, myelocytes andmetamyelocytes) > 1% indicates that a LEFT SHIFT is Present. Performed By: #### L 100.0100, L500.2500 ####[facility] [address] [place], [address] Lymphocytes/100 WBC (Bld) 9.7 % Low 19-41 [facility] Comment on above: Performed By: #### L 100.0100, L500.2500 ####[facility] [address] [place], [address] MCH (RBC) [Entitic mass] 27.5 pg Normal 27.0-32.0 [facility] Comment on above: Performed By: #### L 100.0100, L500.2500 ####[facility] [address] [place], [address] MCHC (RBC) [Mass/Vol] 31.4 g/dL Low 32-36 [facility] Comment on above: Performed By: #### L 100.0100, L500.2500 ####[facility] [address] [place], [address] MCV (RBC) [Entitic vol] 87.6 fL Normal 80-94 [facility] Comment on above: Performed By: #### L 100.0100, L500.2500 ####[facility] [address] [place], [address] Monocytes/100 WBC (Bld) 12.1 % High 0-10 [facility] Comment on above: Performed By: #### L 100.0100, L500.2500 ####[facility] [address] [place], [address] Neutrophils/100 WBC (Bld) 72.6 % High 47-70 [facility] Comment on above: Performed By: #### L 100.0100, L500.2500 ####[facility] [address] [place], [address] Nucleated RBC (Bld) [#/Vol] 0 10*3/uL Normal 0-5 [facility] Comment on above: Performed By: #### L 100.0100, L500.2500 ####[facility] [address] [place], [address] Platelet mean volume (Bld) [Entitic vol] 10.0 fL Normal 6.2-12.0 [facility] Comment on above: Performed By: #### L 100.0100, L500.2500 ####[facility] [address] [place], [address] Platelets (Bld) [#/Vol] 162 10*3/uL Normal 150-450 [facility] Comment on above: Performed By: #### L 100.0100, L500.2500 ####[facility] [address] [place], [address] RBC (Bld) [#/Vol] 3.38 10*6/uL Low 4.6-6.2 [facility] Comment on above: Performed By: #### L 100.0100, L500.2500 ####[facility] [address] [place], [address] RDW SD 51.8 fl High 35.1-43.9 [facility] Comment on above: Performed By: #### L 100.0100, L500.2500 ####[facility] [address] [place], [address] WBC (Bld) [#/Vol] 5.5 10*3/uL Normal 4.4-11.0 [facility] Comment on above: Performed By: #### L 100.0100, L500.2500 ####[facility] [address] [place], [address] Carbon dioxide, total [Moles /volume] in Central venous bloodOrdered By: Deric Lantigua on 03-09-2025 CO2 [Moles/Vol] 26.6 mmol/L 21.0-32.0 [facility] Chloride assayOrdered By: Silvia Lantigua on 03-09-2025 Chloride [Moles/Vol] 101 mmol/L 98-108 [facility] Discharge Instructionon 07 Discharge Instruction Normal [facility] Eosinophil percentageOrdered By: Deric Lantigua on 03-09-2025 Eosinophils/100 WBC (Bld) 4.8 % 0-5 [facility] Erythrocyte distribution wid th ratioOrdered By: Deric Lantigua on 03-09-2025 Erythrocyte distribution width (RBC) [Ratio] 16.3 % High 11.6-14.6 [facility] Erythrocyte distribution wid th standard deviationOrdered By: Deric Lantigua on 03-09-2025 Erythrocyte distribution width (RBC) [Ratio] 51.8 fl High 35.1-43.9 [facility] Glomerular filtration rate ( GFR) estimation/1.73 sq m using serum, plasma, or whole bOrdered By: Deric Lantigua on 03-09-2025 GFR/1.73 sq M.predicted among non-blacks MDRD (S/P/Bld) [Vol rate/Area] 26 mL/min/{1.73_m2} Low >60 [facility] Comment on above: mL/min/1.73m2 CKD-EP I Creatinine Equation (2020) Glucose measurement at bedsi deOrdered By: Deric Lantigua on 03-09-2025 Glucose [Mass/Vol] 184 mg/dL High 74-106 [facility] Comment on above: MANAGEMENT OF PATIEN T CARE PER NURSING PROTOCOL Hematocrit Auto (Bld) [Volum e fraction]Ordered By: Deric Lantigua on 03-09-2025 Hematocrit (Bld) [Volume fraction] 29.6 % Low 40-54 [facility] Hemoglobin measurementOrdere d By: Deric Lantigua on 03-09-2025 Hemoglobin (Bld) [Mass/Vol] 9.3 g/dL Low 13.0-16.5 [facility] Immature granulocytes/100 WB C Auto (Bld)Ordered By: Deric Lantigua on 03-09-2025 Immature granulocytes/100 WBC (Bld) 0.600 % 0.0-0.9 [facility] Comment on above: IG% - Immature Granu locytes (promyelocytes, myelocytes and metamyelocytes) > 1% indicates that a LEFT SHIFT is Present. MCV (mean corpuscular volume ) determinationOrdered By: Deric Lantigua on 03-09-2025 MCV (RBC) [Entitic vol] 87.6 fL 80-94 [facility] Mean corpuscular hemoglobin (MCH) determinationOrdered By: Deric Lantigua on 03-09-2025 MCH (RBC) [Entitic mass] 27.5 pg 27.0-32.0 [facility] Mean corpuscular hemoglobin concentration (MCHC) determinationOrdered By: Deric Lantigua on 03-09-2025 MCHC (RBC) [Mass/Vol] 31.4 g/dL Low 32-36 [facility] Mean platelet volume determi nationOrdered By: Deric Lantigua on 03-09-2025 Platelet mean volume (Bld) [Entitic vol] 10.0 fL 6.2-12.0 [facility] Monocyte percentageOrdered B y: Deric Lantigua on 03-09-2025 Monocytes/100 WBC (Bld) 12.1 % High 0-10 [facility] Neutrophil percentageOrdered By: Deric Lantigua on 03-09-2025 Neutrophils/100 WBC (Bld) 72.6 % High 47-70 [facility] Nucleated red blood cell per centageOrdered By: Deric Lantigua on 03-09-2025 Nucleated RBC/100 WBC (Bld) [Ratio] 0 % 0-5 [facility] Platelet countOrdered By: Silvia Lantigua on 03-09-2025 Platelets (Bld) [#/Vol] 162 10*3/uL 150-450 [facility] Potassium measurement (mass/ volume)Ordered By: Deric Lantigua on 03-09-2025 Potassium (Unsp spec) [Mass/Vol] 4.3 mmol/L 3.3-5.1 [facility] RBC Auto (Bld) [#/Vol]Ordere d By: Deric Lantigua on 03-09-2025 RBC (Bld) [#/Vol] 3.38 10*6/uL Low 4.6-6.2 [facility] Serum creatinine measurement (mass/volume)Ordered By: Deric Lantigua on 03-09-2025 Creatinine [Mass/Vol] 2.41 mg/dL High 0.70-1.20 [facility] Serum glucose measurement (m ass/volume)Ordered By: Deric Lantigua on 03-09-2025 Glucose [Mass/Vol] 118 mg/dL High 70-99 [facility] Serum or plasma calcium [place] urement (mass/volume)Ordered By: Deric Lantigua on 03-09-2025 Calcium [Mass/Vol] 9.0 mg/dL 7.6-11.0 [facility] Serum or plasma urea nitroge n measurement (mass/volume)Ordered By: Deric Lantigua on 03-09-2025 Urea nitrogen [Mass/Vol] 50 mg/dL High 4-19 [facility] Sodium levelOrdered By: Mikki Lantigua on 03-09-2025 Sodium [Moles/Vol] 138 mmol/L 133-145 [facility] White blood cell (WBC) count Ordered By: Deric Lantigua on 03-09-2025 WBC (Bld) [#/Vol] 5.5 10*3/uL 4.4-11.0 [facility] Basic Metabolic Profile (BMP )on 03-08-2025 BUN/CRE 19.9 RATIO Normal 10-20 [facility] Comment on above: Performed By: #### L 500.2500 ####[facility] [address] [place], [address] Calcium [Mass/Vol] 8.8 mg/dL Normal 7.6-11.0 [facility] Comment on above: Performed By: #### L 500.2500 ####[facility] [address] [place], [address] Chloride [Moles/Vol] 99 mmol/L Normal 98-108 [facility] Comment on above: Performed By: #### L 500.2500 ####[facility] [address] [place], [address] CO2 [Moles/Vol] 27.0 mmol/L Normal 21.0-32.0 [facility] Comment on above: Performed By: #### L 500.2500 ####[facility] [address] [place], [address] Creatinine [Mass/Vol] 3.11 mg/dL High 0.70-1.20 [facility] Comment on above: Performed By: #### L 500.2500 ####[facility] [address] [place], [address] ECRCL 17.10 ml/min Low 50-250 [facility] Comment on above: Performed By: #### L 500.2500 ####[facility] [address] [place], [address] GAP 10 Normal 5-15 [facility] Comment on above: Performed By: #### L 500.2500 ####[facility] [address] [place], [address] GFR/1.73 sq M.predicted among non-blacks MDRD (S/P/Bld) [Vol rate/Area] 19 mL/min/{1.73_m2} Low >60 [facility] Comment on above: Result Comment: mL/m in/1.73m2 CKD-EPI Creatinine Equation (2020) Performed By: #### L 500.2500 ####[facility] [address] [place], [address] Glucose [Mass/Vol] 127 mg/dL High 70-99 [facility] Comment on above: Performed By: #### L 500.2500 ####[facility] [address] [place], [address] Potassium [Moles/Vol] 5.3 mmol/L High 3.3-5.1 [facility] Comment on above: Performed By: #### L 500.2500 ####[facility] [address] [place], [address] Sodium [Moles/Vol] 135 mmol/L Normal 133-145 [facility] Comment on above: Performed By: #### L 500.2500 ####[facility] [address] [place], [address] Urea nitrogen [Mass/Vol] 62 mg/dL High 4-19 [facility] Comment on above: Performed By: #### L 500.2500 ####[facility] [address] [place], [address] Bedside Glucoseon 03-08-2025 FINGERSTICK GLU 132 mg/dL High 74-106 [facility] Comment on above: Result Comment: KODY GEMENT OF PATIENT CARE PER NURSING PROTOCOL Performed By: #### L 501.080 ####[facility] [address] [place], [address] FINGERSTICK GLU 142 mg/dL High 74-106 [facility] Comment on above: Result Comment: KODY GEMENT OF PATIENT CARE PER NURSING PROTOCOL Performed By: #### L 501.080 ####[facility] [address] [place], [address] FINGERSTICK GLU 128 mg/dL High 74-106 [facility] Comment on above: Result Comment: KODY GEMENT OF PATIENT CARE PER NURSING PROTOCOL Performed By: #### L 501.080 ####[facility] [address] [place], [address] FINGERSTICK GLU 122 mg/dL High 74-106 [facility] Comment on above: Result Comment: KODY GEMENT OF PATIENT CARE PER NURSING PROTOCOL Performed By: #### L 501.080 ####[facility] [address] [place], [address] Magnesiumon 03-08-2025 Magnesium [Mass/Vol] 2.3 mg/dL High 1.5-2.2 [facility] Comment on above: Performed By: #### L 501.5200 ####[facility] [address] [place], [address] Magnesium measurement (mass/ volume)Ordered By: Nicola Madison on 03-08-2025 Magnesium (Unsp spec) [Mass/Vol] 2.3 mg/dL High 1.5-2.2 [facility] Potassiumon 03-08-2025 Potassium [Moles/Vol] 5.5 mmol/L High 3.3-5.1 [facility] Comment on above: Performed By: #### L 501.5600 ####[facility] [address] [place], [address] Basic Metabolic Profile (BMP )on 03-07-2025 BUN/CRE 18.2 RATIO Normal 10-20 [facility] Comment on above: Performed By: #### L 500.2500 ####[facility] [address] [place], [address] Calcium [Mass/Vol] 8.7 mg/dL Normal 7.6-11.0 [facility] Comment on above: Performed By: #### L 500.2500 ####[facility] [address] [place], [address] Chloride [Moles/Vol] 97 mmol/L Low 98-108 [facility] Comment on above: Performed By: #### L 500.2500 ####[facility] [address] [place], [address] CO2 [Moles/Vol] 26.3 mmol/L Normal 21.0-32.0 [facility] Comment on above: Performed By: #### L 500.2500 ####[facility] [address] [place], [address] Creatinine [Mass/Vol] 3.09 mg/dL High 0.70-1.20 [facility] Comment on above: Performed By: #### L 500.2500 ####[facility] [address] [place], [address] ECRCL 17.21 ml/min Low 50-250 [facility] Comment on above: Performed By: #### L 500.2500 ####[facility] [address] [place], [address] GAP 10 Normal 5-15 [facility] Comment on above: Performed By: #### L 500.2500 ####[facility] [address] [place], [address] GFR/1.73 sq M.predicted among non-blacks MDRD (S/P/Bld) [Vol rate/Area] 20 mL/min/{1.73_m2} Low >60 [facility] Comment on above: Result Comment: mL/m in/1.73m2 CKD-EPI Creatinine Equation (2020) Performed By: #### L 500.2500 ####[facility] [address] [place], [address] Glucose [Mass/Vol] 126 mg/dL High 70-99 [facility] Comment on above: Performed By: #### L 500.2500 ####[facility] [address] [place], [address] Potassium [Moles/Vol] 4.8 mmol/L Normal 3.3-5.1 [facility] Comment on above: Performed By: #### L 500.2500 ####[facility] [address] [place], [address] Sodium [Moles/Vol] 134 mmol/L Normal 133-145 [facility] Comment on above: Performed By: #### L 500.2500 ####[facility] [address] [place], [address] Urea nitrogen [Mass/Vol] 56 mg/dL High 4-19 [facility] Comment on above: Performed By: #### L 500.2500 ####[facility] [address] [place], [address] Bedside Glucoseon 03-07-2025 FINGERSTICK GLU 151 mg/dL High 74-106 [facility] Comment on above: Result Comment: KODY GEMENT OF PATIENT CARE PER NURSING PROTOCOL Performed By: #### L 501.080 ####[facility] [address] [place], [address] FINGERSTICK GLU 191 mg/dL High 74-106 [facility] Comment on above: Result Comment: KODY GEMENT OF PATIENT CARE PER NURSING PROTOCOL Performed By: #### L 501.080 ####[facility] [address] [place], [address] FINGERSTICK GLU 184 mg/dL High 74-106 [facility] Comment on above: Result Comment: KODY GEMENT OF PATIENT CARE PER NURSING PROTOCOL Performed By: #### L 501.080 ####[facility] [address] [place], [address] FINGERSTICK GLU 127 mg/dL High 74-106 [facility] Comment on above: Result Comment: KODY GEMENT OF PATIENT CARE PER NURSING PROTOCOL Performed By: #### L 501.080 ####[facility] [address] [place], [address] Urine Cultureon 03-07-2025 [facility] Comments: On UA sample of 03/04 Culture exhibits no growth. Normal [facility] Comment on above: Performed By: #### M 100.2200 ####[facility] [address] [place], [address] Basic Metabolic Profile (BMP )on 03-06-2025 BUN/CRE 17.8 RATIO Normal 10-20 [facility] Comment on above: Performed By: #### L 500.2500, L501.2300 ####[facility] [address] [place], [address] Calcium [Mass/Vol] 9.1 mg/dL Normal 7.6-11.0 [facility] Comment on above: Performed By: #### L 500.2500, L501.2300 ####[facility] [address] [place], [address] Chloride [Moles/Vol] 99 mmol/L Normal 98-108 [facility] Comment on above: Performed By: #### L 500.2500, L501.2300 ####[facility] [address] [place], [address] CO2 [Moles/Vol] 31.2 mmol/L Normal 21.0-32.0 [facility] Comment on above: Performed By: #### L 500.2500, L501.2300 ####[facility] [address] [place], [address] Creatinine [Mass/Vol] 2.23 mg/dL High 0.70-1.20 [facility] Comment on above: Performed By: #### L 500.2500, L501.2300 ####[facility] [address] [place], [address] ECRCL 23.84 ml/min Low 50-250 [facility] Comment on above: Performed By: #### L 500.2500, L501.2300 ####[facility] [address] [place], [address] GAP 8 Normal 5-15 [facility] Comment on above: Performed By: #### L 500.2500, L501.2300 ####[facility] [address] [place], [address] GFR/1.73 sq M.predicted among non-blacks MDRD (S/P/Bld) [Vol rate/Area] 29 mL/min/{1.73_m2} Low >60 [facility] Comment on above: Result Comment: mL/m in/1.73m2 CKD-EPI Creatinine Equation (2020) Performed By: #### L 500.2500, L501.2300 ####[facility] [address] [place], [address] Glucose [Mass/Vol] 118 mg/dL High 70-99 [facility] Comment on above: Performed By: #### L 500.2500, L501.2300 ####[facility] [address] [place], [address] Potassium [Moles/Vol] 4.7 mmol/L Normal 3.3-5.1 [facility] Comment on above: Performed By: #### L 500.2500, L501.2300 ####[facility] [address] [place], [address] Sodium [Moles/Vol] 138 mmol/L Normal 133-145 [facility] Comment on above: Performed By: #### L 500.2500, L501.2300 ####[facility] [address] [place], [address] Urea nitrogen [Mass/Vol] 40 mg/dL High 4-19 [facility] Comment on above: Performed By: #### L 500.2500, L501.2300 ####[facility] [address] [place], [address] Bedside Glucoseon 03-06-2025 FINGERSTICK GLU 146 mg/dL High 74-106 [facility] Comment on above: Result Comment: KODY GEMENT OF PATIENT CARE PER NURSING PROTOCOL Performed By: #### L 501.080 ####[facility] [address] [place], [address] FINGERSTICK GLU 117 mg/dL High -106 [facility] Comment on above: Result Comment: KODY GEMENT OF PATIENT CARE PER NURSING PROTOCOL Performed By: #### L 501.080 ####[facility] [address] [place], [address] FINGERSTICK GLU 229 mg/dL High -106 [facility] Comment on above: Result Comment: KODY GEMENT OF PATIENT CARE PER NURSING PROTOCOL Performed By: #### L 501.080 ####[facility] [address] [place], [address] FINGERSTICK GLU 109 mg/dL High [facility]106 [facility] Comment on above: Result Comment: KODY GEMENT OF PATIENT CARE PER NURSING PROTOCOL Performed By: #### L 501.080 ####[facility] [address] [place], [address] FINGERSTICK GLU 140 mg/dL High [facility]106 [facility] Comment on above: Result Comment: KODY GEMENT OF PATIENT CARE PER NURSING PROTOCOL Performed By: #### L 501.080 ####[facility] [address] [place], [address] Consultation - Cardiologyon 03-06-2025 Consultation - Cardiology Normal [facility] Phosphoruson 03-06-2025 Phosphate [Mass/Vol] 3.9 mg/dL Normal 2.7-4.5 [facility] Comment on above: Performed By: #### L 500.2500, L5.2300 ####[facility] [address] [place], [address] Urine cultureOrdered By: Kavita Lantigua on 03-06-2025 Bacteria identified Cx Nom (U) Culture exhibits no growth. [facility] Bedside Glucoseon 03-05-2025 FINGERSTICK GLU 111 mg/dL High 74-106 [facility] Comment on above: Result Comment: KODY GEMENT OF PATIENT CARE PER NURSING PROTOCOL Performed By: #### L 501.080 ####[facility] [address] [place], [address] FINGERSTICK GLU 152 mg/dL High 74-106 [facility] Comment on above: Result Comment: KODY GEMENT OF PATIENT CARE PER NURSING PROTOCOL Performed By: #### L 501.080 ####[facility] [address] [place], [address] FINGERSTICK GLU 159 mg/dL High 74-106 [facility] Comment on above: Result Comment: KODY GEMENT OF PATIENT CARE PER NURSING PROTOCOL Performed By: #### L 501.080 ####[facility] [address] [place], [address] Bilirubin, totalOrdered By: Nicola Madison on 03-05-2025 Bilirubin [Mass/Vol] 0.46 mg/dL 0.00-1.30 [facility] CBC W/Diff, Automatedon 02-17 Absolute Lymph 0.72 X10 3/uL Low 0.83-4.51 [facility] Comment on above: Performed By: #### L 501.2300, L100.0100 ####[facility] [address] [place], [address] Absolute Neut 5.8 X10 3/uL Normal 2.0-7.7 [facility] Comment on above: Performed By: #### L 501.2300, L100.0100 ####[facility] [address] [place], [address] Basophils/100 WBC (Bld) 0.4 % Normal 0-1 [facility] Comment on above: Performed By: #### L 501.2300, L100.0100 ####[facility] [address] [place], [address] Eosinophils/100 WBC (Bld) 2.0 % Normal 0-5 [facility] Comment on above: Performed By: #### L 501.2300, L100.0100 ####[facility] [address] [place], [address] Erythrocyte distribution width (RBC) [Ratio] 16.6 % High 11.6-14.6 [facility] Comment on above: Performed By: #### L 501.2300, L100.0100 ####[facility] [address] [place], [address] Hematocrit (Bld) [Volume fraction] 30.1 % Low 40-54 [facility] Comment on above: Performed By: #### L 501.2300, L100.0100 ####[facility] [address] [place], [address] Hemoglobin (Bld) [Mass/Vol] 9.3 g/dL Low 13.0-16.5 [facility] Comment on above: Performed By: #### L 501.2300, L100.0100 ####[facility] [address] [place], [address] IG% 0.300 Normal 0.0-0.9 [facility] Comment on above: Result Comment: IG% - Immature Granulocytes (promyelocytes, myelocytes andmetamyelocytes) > 1% indicates that a LEFT SHIFT is Present. Performed By: #### L 501.2300, L100.0100 ####[facility] [address] [place], [address] Lymphocytes/100 WBC (Bld) 9.5 % Low 19-41 [facility] Comment on above: Performed By: #### L 501.2300, L100.0100 ####[facility] [address] [place], [address] MCH (RBC) [Entitic mass] 27.0 pg Normal 27.0-32.0 [facility] Comment on above: Performed By: #### L 501.2300, L100.0100 ####[facility] [address] [place], [address] MCHC (RBC) [Mass/Vol] 30.9 g/dL Low 32-36 [facility] Comment on above: Performed By: #### L 501.2300, L100.0100 ####[facility] [address] [place], [address] MCV (RBC) [Entitic vol] 87.5 fL Normal 80-94 [facility] Comment on above: Performed By: #### L 501.2300, L100.0100 ####[facility] [address] [place], [address] Monocytes/100 WBC (Bld) 11.4 % High 0-10 [facility] Comment on above: Performed By: #### L 501.2300, L100.0100 ####[facility] [address] [place], [address] Neutrophils/100 WBC (Bld) 76.4 % High 47-70 [facility] Comment on above: Performed By: #### L 501.2300, L100.0100 ####[facility] [address] [place], [address] Nucleated RBC (Bld) [#/Vol] 0 10*3/uL Normal 0-5 [facility] Comment on above: Performed By: #### L 501.2300, L100.0100 ####[facility] [address] [place], [address] Platelet mean volume (Bld) [Entitic vol] 10.7 fL Normal 6.2-12.0 [facility] Comment on above: Performed By: #### L 501.2300, L100.0100 ####[facility] [address] [place], [address] Platelets (Bld) [#/Vol] 181 10*3/uL Normal 150-450 [facility] Comment on above: Performed By: #### L 501.2300, L100.0100 ####[facility] [address] [place], [address] RBC (Bld) [#/Vol] 3.44 10*6/uL Low 4.6-6.2 [facility] Comment on above: Performed By: #### L 501.2300, L100.0100 ####[facility] [address] [place], [address] RDW SD 52.8 fl High 35.1-43.9 [facility] Comment on above: Performed By: #### L 501.2300, L100.0100 ####[facility] [address] [place], [address] WBC (Bld) [#/Vol] 7.6 10*3/uL Normal 4.4-11.0 [facility] Comment on above: Performed By: #### L 501.2300, L100.0100 ####[facility] [address] [place], [address] Calculated very low density lipoprotein (VLDL) cholesterol measurementOrdered By: Nicola Madison on 03-05-2025 Calculated very low density lipoprotein (VLDL) cholesterol measurement 16 mg/dL 5-40 [facility] Chest 1 View (Portable)on Chest 1 View (Portable) Normal [facility] Comprehensive Metabolic Prof ilon 03-05-2025 Albumin [Mass/Vol] 3.4 g/dL Normal 3.4-4.8 [facility] Comment on above: Performed By: #### L 500.4050, L500.4100, L503.7505 ####[facility] [address] [place], [address] Albumin/Globulin [Mass ratio] 0.9 {ratio} Normal 0.9-2.4 [facility] Comment on above: Performed By: #### L 500.4050, L500.4100, L503.7505 ####[facility] [address] [place], [address] ALK PHOS 75 U/L Normal 40-129 [facility] Comment on above: Performed By: #### L 500.4050, L500.4100, L503.7505 ####[facility] [address] [place], [address] ALT [Catalytic activity/Vol] 10 U/L Normal <=46 [facility] Comment on above: Performed By: #### L 500.4050, L500.4100, L503.7505 ####[facility] [address] [place], [address] AST [Catalytic activity/Vol] 15 U/L Normal <=37 [facility] Comment on above: Performed By: #### L 500.4050, L500.4100, L503.7505 ####[facility] [address] [place], [address] Bilirubin [Mass/Vol] 0.46 mg/dL Normal 0.00-1.30 [facility] Comment on above: Performed By: #### L 500.4050, L500.4100, L503.7505 ####[facility] [address] [place], [address] BUN/CRE 18.6 RATIO Normal 10-20 [facility] Comment on above: Performed By: #### L 500.4050, L500.4100, L503.7505 ####[facility] [address] [place], [address] Calcium [Mass/Vol] 9.1 mg/dL Normal 7.6-11.0 [facility] Comment on above: Performed By: #### L 500.4050, L500.4100, L503.7505 ####[facility] [address] [place], [address] Chloride [Moles/Vol] 101 mmol/L Normal 98-108 [facility] Comment on above: Performed By: #### L 500.4050, L500.4100, L503.7505 ####[facility] [address] [place], [address] CO2 [Moles/Vol] 27.2 mmol/L Normal 21.0-32.0 [facility] Comment on above: Performed By: #### L 500.4050, L500.4100, L503.7505 ####[facility] [address] [place], [address] Creatinine [Mass/Vol] 1.95 mg/dL High 0.70-1.20 [facility] Comment on above: Performed By: #### L 500.4050, L500.4100, L503.7505 ####[facility] [address] [place], [address] ECRCL 27.26 ml/min Low 50-250 [facility] Comment on above: Performed By: #### L 500.4050, L500.4100, L503.7505 ####[facility] [address] [place], [address] GAP 10 Normal 5-15 [facility] Comment on above: Performed By: #### L 500.4050, L500.4100, L503.7505 ####[facility] [address] [place], [address] GFR/1.73 sq M.predicted among non-blacks MDRD (S/P/Bld) [Vol rate/Area] 34 mL/min/{1.73_m2} Low >60 [facility] Comment on above: Result Comment: mL/m in/1.73m2 CKD-EPI Creatinine Equation (2020) Performed By: #### L 500.4050, L500.4100, L503.7505 ####[facility] [address] [place], [address] Globulin (S) [Mass/Vol] 3.9 g/dL Normal 2.2-4.2 [facility] Comment on above: Performed By: #### L 500.4050, L500.4100, L503.7505 ####[facility] [address] [place], [address] Glucose [Mass/Vol] 171 mg/dL High 70-99 [facility] Comment on above: Performed By: #### L 500.4050, L500.4100, L503.7505 ####[facility] [address] [place], [address] Potassium [Moles/Vol] 5.0 mmol/L Normal 3.3-5.1 [facility] Comment on above: Performed By: #### L 500.4050, L500.4100, L503.7505 ####[facility] [address] [place], [address] Sodium [Moles/Vol] 138 mmol/L Normal 133-145 [facility] Comment on above: Performed By: #### L 500.4050, L500.4100, L503.7505 ####[facility] [address] [place], [address] T PROT 7.3 g/dL Normal 5.9-8.4 [facility] Comment on above: Performed By: #### L 500.4050, L500.4100, L503.7505 ####[facility] [address] [place], [address] Urea nitrogen [Mass/Vol] 36 mg/dL High 4-19 [facility] Comment on above: Performed By: #### L 500.4050, L500.4100, L503.7505 ####[facility] [address] [place], [address] Echocardiogram study reportO rdered By: Marjorie Green on 03-05-2025 Study report [facility] [address] [place] [address] Echo Complete W/ Contrast 03/05/25 0941 MR#: [id number] Acct: [id number] Name: PEDRO HILLMAN Rep #:[id number] : 1945 80 From: Marjorie Green MD [...] Date Dictated: 03/05/25940 Date Transcribed: 03/05/25 115 Whitewasher: Signed [facility] Work Phone: [phone] 03-05-2025 Natriuretic peptide B (Bld) [Mass/Vol] 4176 pg/mL High <=1800 [facility] Comment on above: Result Comment: Hear t Failure Unlikely: < 300 pg/mLHeart Failure Likely< 50 Years: > 450 pg/mL50-75 Years: > 900 pg/mL>75 Years: > 1800 pg/mL Performed By: #### L 500.4050, L500.4100, L503.7505 ####[facility] [address] [place], [place], [id number] LDL calc ser/plasOrdered By: Nicola Madison on 03-05-2025 Cholesterol in LDL [Mass/Vol] 63 mg/dL [facility] Comment on above: Jygqvxrzlw=212-695 m g/dL & Higher Ieec=094 mg/dL or greater Laboratory - Chemistry and C hemistry - challengeOrdered By: Nicola Madison on 03-05-2025 AST [Catalytic activity/Vol] 15 U/L <38 [facility] Lipid Profileon 03-05-2025 CHOL:HDL 3.04 Normal [facility] Comment on above: Performed By: #### L 500.4050, L500.4100, L503.7505 ####[facility] [address] [place], [address] Cholesterol [Mass/Vol] 117 mg/dL Normal <=200 [facility] Comment on above: Result Comment: Chol esterol level, Desirable <200 mg/dLBorderline high cholesterol 200-239 mg/dLHigh cholesterol >=240 mg/dLRecommendations of the NCEP Adult Treatment Panel for thefollowing risk-cutoff thresholds for the [place] Americanpulation. Performed By: #### L 500.4050, L500.4100, L503.7505 ####[facility] [address] [place], [address] Cholesterol in HDL [Mass/Vol] 39 mg/dL Low [facility] Comment on above: Result Comment: Gia onal Cholesterol Education Program (NCEP) guidelines:<40 mg/dL: Low HDL-cholesterol (major risk factor for CHD)>= 60 mg/dL: High HDL-cholesterol (negative risk factor forCHD)HDL-cholesterol is affected by a number of factors, e.g.smoking, exercise, hormones, sex and age. Performed By: #### L 500.4050, L500.4100, L503.7505 ####[facility] [address] [place], [address] Cholesterol in LDL [Mass/Vol] 63 mg/dL Normal [facility] Comment on above: Result Comment: Bord fsuqdy=382-077 mg/dL Higher Ycjp=180 mg/dL or greater Performed By: #### L 500.4050, L500.4100, L503.7505 ####[facility] [address] [place], [address] Cholesterol in VLDL [Mass/Vol] 16 mg/dL Normal 5-40 [facility] Comment on above: Performed By: #### L 500.4050, L500.4100, L503.7505 ####[facility] [address] [place], [place], [address] Triglyceride [Mass/Vol] 79 mg/dL Normal [facility] Comment on above: Result Comment: The drugs N-Acetylcysteine and Metamizole may falselydepress this assay.Normal range: <150 mg/dLBorderline High: 150-199 mg/dLHigh: 200-499 mg/dLVery High: >500 mg/dL Performed By: #### L 500.4050, L500.4100, L503.7505 ####[facility] [address] [place], [address] Natriuretic peptide.B prohor girish N-Terminal [Mass/volume] in Serum or PlasmaOrdered By: Nicola Madison on 03-05-2025 Natriuretic peptide.B prohormone N-Terminal [Mass/Vol] 4176 pg/mL High <1800 [facility] Comment on above: Heart Failure Unlike ly: < 300 pg/mLHeart Failure Likely< 50 Years: > 450 pg/mL50-75 Years: > 900 pg/mL>75 Years: > 1800 pg/mL Phosphoruson 03-05-2025 Phosphate [Mass/Vol] 3.3 mg/dL Normal 2.7-4.5 [facility] Comment on above: Performed By: #### L 501.2300, L100.0100 ####[facility] [address], [address] Screening total cholesterol/ high density lipoprotein (HDL) cholesterol ratioOrdered By: Nicola Madison on 03-05-2025 Cholesterol.total/Cholest liset in HDL [Mass ratio] 3.04 {ratio} [facility] Serum globulin measurementOr dered By: Nicoal Madison on 03-05-2025 Globulin (S) [Mass/Vol] 3.9 g/dL 2.2-4.2 [facility] Serum or plasma alanine ortiz otransferase (ALT) measurementOrdered By: Nicola Madison on 03-05-2025 ALT [Catalytic activity/Vol] 10 U/L <47 [facility] Serum or plasma albumin kingsley urement (mass/volume)Ordered By: Nicola Madison on 03-05-2025 Albumin [Mass/Vol] 3.4 g/dL 3.4-4.8 [facility] Serum or plasma albumin/glob ulin mass ratioOrdered By: Nicola Madison on 03-05-2025 Albumin/Globulin [Mass ratio] 0.9 {ratio} 0.9-2.4 [facility] Serum or plasma alkaline roosevelt sphatase measurementOrdered By: Nicola Madison on 03-05-2025 ALP [Catalytic activity/Vol] 75 U/L 40-129 [facility] Serum or plasma cholesterol in HDL measurement (mass/volume)Ordered By: Nicola Madison on 03-05-2025 Cholesterol in HDL [Mass/Vol] 39 mg/dL Low >40 [facility] Comment on above: National Cholesterol Education Program (NCEP) guidelines:<40 mg/dL: Low HDL-cholesterol (major risk factor for CHD)>= 60 mg/dL: High HDL-cholesterol (negative risk factor for CHD)HDL-cholesterol is affected by a number of factors, e.g. smoking, exercise, hormones, sex and age. Serum or plasma cholesterol measurement (mass/volume)Ordered By: Nicola Madison on 03-05-2025 Cholesterol [Mass/Vol] 117 mg/dL <201 [facility] Comment on above: Cholesterol level, D esirable <200 mg/dLBorderline high cholesterol 200-239 mg/dLHigh cholesterol >=240 mg/dLRecommendations of the NCEP Adult Treatment Panel for the following risk-cutoff thresholds for the [place] population. Total proteinOrdered By: Jacob Madison on 03-05-2025 Protein [Mass/Vol] 7.3 g/dL 5.9-8.4 [facility] Triglycerides measurementOrd ered By: Nicola Madison on 03-05-2025 Triglyceride [Mass/Vol] 79 mg/dL <199 [facility] Comment on above: The drugs N-Acetylcy steine and Metamizole may falsely depress this assay. Normal range: <150 mg/dLBorderline High: 150-199 mg/dLHigh: 200-499 mg/dLVery High: >500 mg/dL Absolute lymphocyte countOrd ered By: Chris Ochoa on 03-04-2025 Lymphocytes Auto (Unsp spec) [#/Vol] 0.77 10*3/uL Low 0.83-4.51 [facility] Absolute neutrophil countOrd ered By: Chris Ochoa on 03-04-2025 Neutrophils (Bld) [#/Vol] 6.0 10*3/uL 2.0-7.7 [facility] Anion gap in Serum or Plasma Ordered By: Chris Ochoa on 03-04-2025 Anion gap [Moles/Vol] 8 mmol/L 5- [facility] Automated lymphocyte count a s percentage of total leukocytesOrdered By: Chris Ochoa on 03-04-2025 Lymphocytes/100 WBC Auto (Unsp spec) 10.1 % Low 19-41 [facility] BUN/creatinine ratioOrdered By: Chris Ochoa on 03-04-2025 Urea nitrogen/Creatinine [Mass ratio] 19.7 mg/mg 10- [facility] Basic Metabolic Profile (BMP )on 03-04-2025 BUN/CRE 19.7 RATIO Normal - [facility] Comment on above: Performed By: #### L 100.0100, L501.4021, L500.2500, L503.7505 ####[facility] [address] [place], [address] Calcium [Mass/Vol] 9.3 mg/dL Normal 7.6-11.0 [facility] Comment on above: Performed By: #### L 100.0100, L501.4021, L500.2500, L503.7505 ####[facility] [address] [place], [address] Chloride [Moles/Vol] 102 mmol/L Normal 98-108 [facility] Comment on above: Performed By: #### L 100.0100, L501.4021, L500.2500, L503.7505 ####[facility] [address] [place], [address] CO2 [Moles/Vol] 28.6 mmol/L Normal 21.0-32.0 [facility] Comment on above: Performed By: #### L 100.0100, L501.4021, L500.2500, L503.7505 ####[facility] [address] [place], [address] Creatinine [Mass/Vol] 1.86 mg/dL High 0.70-1.20 [facility] Comment on above: Performed By: #### L 100.0100, L501.4021, L500.2500, L503.7505 ####[facility] [address] [place], [address] ECRCL 28.58 ml/min Low 50-250 [facility] Comment on above: Performed By: #### L 100.0100, L501.4021, L500.2500, L503.7505 ####[facility] [address] [place], [address] GAP 8 Normal 5-15 [facility] Comment on above: Performed By: #### L 100.0100, L501.4021, L500.2500, L503.7505 ####[facility] [address] [place], [address] GFR/1.73 sq M.predicted among non-blacks MDRD (S/P/Bld) [Vol rate/Area] 36 mL/min/{1.73_m2} Low >60 [facility] Comment on above: Result Comment: mL/m in/1.73m2 CKD-EPI Creatinine Equation (2020) Performed By: #### L 100.0100, L501.4021, L500.2500, L503.7505 ####[facility] [address] [place], [address] Glucose [Mass/Vol] 124 mg/dL High 70-99 [facility] Comment on above: Performed By: #### L 100.0100, L501.4021, L500.2500, L503.7505 ####[facility] [address] [place], [address] Potassium [Moles/Vol] 5.2 mmol/L High 3.3-5.1 [facility] Comment on above: Performed By: #### L 100.0100, L501.4021, L500.2500, L503.7505 ####[facility] [address] [place], [address] Sodium [Moles/Vol] 138 mmol/L Normal 133-145 [facility] Comment on above: Performed By: #### L 100.0100, L501.4021, L500.2500, L503.7505 ####[facility] [address] [place], [address] Urea nitrogen [Mass/Vol] 37 mg/dL High 4-19 [facility] Comment on above: Performed By: #### L 100.0100, L501.4021, L500.2500, L503.7505 ####[facility] [address] [place], [address] Basophil percentageOrdered B y: Chris Ochoa on 03-04-2025 Basophils/100 WBC (Bld) 0.4 % 0-1 [facility] Bedside Glucoseon 03-04-2025 FINGERSTICK GLU 80 mg/dL Normal 74-106 [facility] Comment on above: Result Comment: KODY STRONG OF PATIENT CARE PER NURSING PROTOCOL Performed By: #### L 501.080 ####[facility] [address] [place], [address] Bilirubin Test strip Ql (U)O rdered By: Nicola Madison on 03-04-2025 Bilirubin Ql (U) Negative Negative [facility] CBC W/Diff, Automatedon 02-17 Absolute Lymph 0.77 X10 3/uL Low 0.83-4.51 [facility] Comment on above: Performed By: #### L 100.0100, L501.4021, L500.2500, L503.7505 ####[facility] [address] [place], [address] Absolute Neut 6.0 X10 3/uL Normal 2.0-7.7 [facility] Comment on above: Performed By: #### L 100.0100, L501.4021, L500.2500, L503.7505 ####[facility] [address] [place], [address] Basophils/100 WBC (Bld) 0.4 % Normal 0-1 [facility] Comment on above: Performed By: #### L 100.0100, L501.4021, L500.2500, L503.7505 ####[facility] [address] [place], [address] Eosinophils/100 WBC (Bld) 1.6 % Normal 0-5 [facility] Comment on above: Performed By: #### L 100.0100, L501.4021, L500.2500, L503.7505 ####[facility] [address] [place], [address] Erythrocyte distribution width (RBC) [Ratio] 16.5 % High 11.6-14.6 [facility] Comment on above: Performed By: #### L 100.0100, L501.4021, L500.2500, L503.7505 ####[facility] [address] [place], [address] Hematocrit (Bld) [Volume fraction] 33.4 % Low 40-54 [facility] Comment on above: Performed By: #### L 100.0100, L501.4021, L500.2500, L503.7505 ####[facility] [address] [place], [address] Hemoglobin (Bld) [Mass/Vol] 10.1 g/dL Low 13.0-16.5 [facility] Comment on above: Performed By: #### L 100.0100, L501.4021, L500.2500, L503.7505 ####[facility] [address] [place], [address] IG% 0.700 Normal 0.0-0.9 [facility] Comment on above: Result Comment: IG% - Immature Granulocytes (promyelocytes, myelocytes andmetamyelocytes) > 1% indicates that a LEFT SHIFT is Present. Performed By: #### L 100.0100, L501.4021, L500.2500, L503.7505 ####[facility] [address] [place], [address] Lymphocytes/100 WBC (Bld) 10.1 % Low 19-41 [facility] Comment on above: Performed By: #### L 100.0100, L501.4021, L500.2500, L503.7505 ####[facility] [address] [place], [address] MCH (RBC) [Entitic mass] 27.0 pg Normal 27.0-32.0 [facility] Comment on above: Performed By: #### L 100.0100, L501.4021, L500.2500, L503.7505 ####[facility] [address] [place], [address] MCHC (RBC) [Mass/Vol] 30.2 g/dL Low 32-36 [facility] Comment on above: Performed By: #### L 100.0100, L501.4021, L500.2500, L503.7505 ####[facility] [address] [place], [address] MCV (RBC) [Entitic vol] 89.3 fL Normal 80-94 [facility] Comment on above: Performed By: #### L 100.0100, L501.4021, L500.2500, L503.7505 ####[facility] [address] [place], [address] Monocytes/100 WBC (Bld) 9.1 % Normal 0-10 [facility] Comment on above: Performed By: #### L 100.0100, L501.4021, L500.2500, L503.7505 ####[facility] [address] [place], [address] Neutrophils/100 WBC (Bld) 78.1 % High 47-70 [facility] Comment on above: Performed By: #### L 100.0100, L501.4021, L500.2500, L503.7505 ####[facility] [address] [place], [address] Nucleated RBC (Bld) [#/Vol] 0 10*3/uL Normal 0-5 [facility] Comment on above: Performed By: #### L 100.0100, L501.4021, L500.2500, L503.7505 ####[facility] [address] [place], [address] Platelet mean volume (Bld) [Entitic vol] 10.2 fL Normal 6.2-12.0 [facility] Comment on above: Performed By: #### L 100.0100, L501.4021, L500.2500, L503.7505 ####[facility] [address] [place], [address] Platelets (Bld) [#/Vol] 189 10*3/uL Normal 150-450 [facility] Comment on above: Performed By: #### L 100.0100, L501.4021, L500.2500, L503.7505 ####[facility] [address] [place], [address] RBC (Bld) [#/Vol] 3.74 10*6/uL Low 4.6-6.2 [facility] Comment on above: Performed By: #### L 100.0100, L501.4021, L500.2500, L503.7505 ####[facility] [address] [place], [address] RDW SD 54.2 fl High 35.1-43.9 [facility] Comment on above: Performed By: #### L 100.0100, L501.4021, L500.2500, L503.7505 ####[facility] [address] [place], [address] WBC (Bld) [#/Vol] 7.6 10*3/uL Normal 4.4-11.0 [facility] Comment on above: Performed By: #### L 100.0100, L501.4021, L500.2500, L503.7505 ####[facility] [address] [place], [address] Carbon dioxide, total [Moles /volume] in Central venous bloodOrdered By: Chris Ochoa on 03-04-2025 CO2 [Moles/Vol] 28.6 mmol/L 21.0-32.0 [facility] Chest PA and Lateralon 03-04 Chest PA and Lateral Normal [facility] Chloride assayOrdered By: Chino Ochoa on 03-04-2025 Chloride [Moles/Vol] 102 mmol/L 98-108 [facility] Echo Complete W/ Contraston 03-04-2025 Echo Complete W/ Contrast Normal [facility] Emergency Department Summary on 03-04-2025 Emergency Department Summary Normal [facility] Eosinophil percentageOrdered By: Chris Ochoa on 03-04-2025 Eosinophils/100 WBC (Bld) 1.6 % 0-5 [facility] Erythrocyte distribution wid th ratioOrdered By: Chris Ochoa on 03-04-2025 Erythrocyte distribution width (RBC) [Ratio] 16.5 % High 11.6-14.6 [facility] Erythrocyte distribution wid th standard deviationOrdered By: Chris Ochoa on 03-04-2025 Erythrocyte distribution width (RBC) [Ratio] 54.2 fl High 35.1-43.9 [facility] Glomerular filtration rate ( GFR) estimation/1.73 sq m using serum, plasma, or whole bOrdered By: Chris Ochoa on 03-04-2025 GFR/1.73 sq M.predicted among non-blacks MDRD (S/P/Bld) [Vol rate/Area] 36 mL/min/{1.73_m2} Low >60 [facility] Comment on above: mL/min/1.73m2 CKD-EP I Creatinine Equation (2020) H AND P Exam - [place] 03-04-2025 H&P Exam - Hospitalist Normal [facility] Hematocrit Auto (Bld) [Volum e fraction]Ordered By: Chris Ochoa on 03-04-2025 Hematocrit (Bld) [Volume fraction] 33.4 % Low 40-54 [facility] Hemoglobin A1con 03-04-2025 HbA1c (Bld) [Mass fraction] 6.3 % High <=5.6 [facility] Comment on above: Result Comment: Norm al < 5.7 % Prediabetic 5.7 - 6.4 % Diabetic >or= 6.5 % Please note range changes. Performed By: #### L 501.9520, L501.5200, L501.9985 ####[facility] [address] [place], [place], [id number] Hemoglobin A1c percentageOrd ered By: Nicola Madison on 03-04-2025 HbA1c (Bld) [Mass fraction] 6.3 % High <5.7 [facility] Comment on above: Normal < 5.7 % Predi abetic 5.7 - 6.4 % Diabetic >or= 6.5 % Please note range changes. Hemoglobin measurementOrdere d By: Chris Ochoa on 03-04-2025 Hemoglobin (Bld) [Mass/Vol] 10.1 g/dL Low 13.0-16.5 [facility] Immature granulocytes/100 WB C Auto (Bld)Ordered By: Chris Ochoa on 03-04-2025 Immature granulocytes/100 WBC (Bld) 0.700 % 0.0-0.9 [facility] Comment on above: IG% - Immature Granu locytes (promyelocytes, myelocytes and metamyelocytes) > 1% indicates that a LEFT SHIFT is Present. Ketones Test strip Ql (U)Ord ered By: Nicola Madison on 03-04-2025 Ketones Ql (U) Negative Negative [facility] L499.0042on 03-04-2025 Trop T High Sen 45 ng/L High <=22 [facility] Comment on above: Performed By: #### L 499.0042 ####[facility] [address] [place], [address] L499.0043on 03-04-2025 Trop T High Sen 42 ng/L High <=22 [facility] Comment on above: Performed By: #### L 499.0043 ####[facility] [address] [place], [address] L501.4021on 03-04-2025 Trop T High Sen 44 ng/L High <=22 [facility] Comment on above: Performed By: #### L 100.0100, L501.4021, L500.2500, L503.7505 ####[facility] [address] [place], [address] L503.7505on 03-04-2025 Natriuretic peptide B (Bld) [Mass/Vol] 3316 pg/mL High <=1800 [facility] Comment on above: Result Comment: Hear t Failure Unlikely: < 300 pg/mLHeart Failure Likely< 50 Years: > 450 pg/mL50-75 Years: > 900 pg/mL>75 Years: > 1800 pg/mL Performed By: #### L 100.0100, L501.4021, L500.2500, L503.7505 ####[facility] [address] [place], [address] MCV (mean corpuscular volume ) determinationOrdered By: Chris Ochoa on 03-04-2025 MCV (RBC) [Entitic vol] 89.3 fL 80-94 [facility] Magnesiumon 03-04-2025 Magnesium [Mass/Vol] 2.0 mg/dL Normal 1.5-2.2 [facility] Comment on above: Performed By: #### L 501.9520, L501.5200, L501.9985 ####[facility] [address] [place], [address] Mean corpuscular hemoglobin (MCH) determinationOrdered By: Chris Ochoa on 03-04-2025 MCH (RBC) [Entitic mass] 27.0 pg 27.0-32.0 [facility] Mean corpuscular hemoglobin concentration (MCHC) determinationOrdered By: Chris Ochoa on 03-04-2025 MCHC (RBC) [Mass/Vol] 30.2 g/dL Low 32-36 [facility] Mean platelet volume determi nationOrdered By: Chris Ochoa on 03-04-2025 Platelet mean volume (Bld) [Entitic vol] 10.2 fL 6.2-12.0 [facility] Microscopic analysis of urin e for red blood cells (RBC)Ordered By: Nicola Madison on 03-04-2025 Microscopic analysis of urine for red blood cells (RBC) 5-10 SEEN /hpf 0-5 [facility] Monocyte percentageOrdered B y: Chris Ochoa on 03-04-2025 Monocytes/100 WBC (Bld) 9.1 % 0-10 [facility] Mucus LM Ql (Urine sed)Order ed By: Nicola Madison on 03-04-2025 Mucus Ql (Urine sed) 0 SEEN /hpf [facility] Natriuretic peptide.B prohor girish N-Terminal [Mass/volume] in Serum or PlasmaOrdered By: Chris Ochoa on 03-04-2025 Natriuretic peptide.B prohormone N-Terminal [Mass/Vol] 3316 pg/mL High <1800 [facility] Comment on above: Heart Failure Unlike ly: < 300 pg/mLHeart Failure Likely< 50 Years: > 450 pg/mL50-75 Years: > 900 pg/mL>75 Years: > 1800 pg/mL Neutrophil percentageOrdered By: Chris Ochoa on 03-04-2025 Neutrophils/100 WBC (Bld) 78.1 % High 47-70 [facility] Nitrite Test strip Ql (U)Ord ered By: Nicola Madison on 03-04-2025 Nitrite Ql (U) Positive High Negative [facility] Nucleated red blood cell per centageOrdered By: Chris Ochoa on 03-04-2025 Nucleated RBC/100 WBC (Bld) [Ratio] 0 % 0-5 [facility] Platelet countOrdered By: Chino Ochoa on 03-04-2025 Platelets (Bld) [#/Vol] 189 10*3/uL 150-450 [facility] Potassium measurement (mass/ volume)Ordered By: Chris Ochoa on 03-04-2025 Potassium (Unsp spec) [Mass/Vol] 5.2 mmol/L High 3.3-5.1 [facility] Protein Test strip Ql (U)Ord ered By: Nicola Madison on 03-04-2025 Protein Ql (U) 100 mg/dl High Negative [facility] RBC Auto (Bld) [#/Vol]Ordere d By: Chris Ochoa on 03-04-2025 RBC (Bld) [#/Vol] 3.74 10*6/uL Low 4.6-6.2 [facility] Serum creatinine measurement (mass/volume)Ordered By: Chris Ochoa on 03-04-2025 Creatinine [Mass/Vol] 1.86 mg/dL High 0.70-1.20 [facility] Serum glucose measurement (m ass/volume)Ordered By: Chris Ochoa on 03-04-2025 Glucose [Mass/Vol] 124 mg/dL High 70-99 [facility] Serum or plasma calcium [place] urement (mass/volume)Ordered By: Chris Ochoa on 03-04-2025 Calcium [Mass/Vol] 9.3 mg/dL 7.6-11.0 [facility] Serum or plasma urea nitroge n measurement (mass/volume)Ordered By: Chris Ochoa on 03-04-2025 Urea nitrogen [Mass/Vol] 37 mg/dL High 4-19 [facility] Sodium levelOrdered By: Chris Ochoa on 03-04-2025 Sodium [Moles/Vol] 138 mmol/L 133-145 [facility] Squamous epithelial cells de tection in urine sediment by light microscopyOrdered By: Nicola Madison on 03-04-2025 Epithelial cells.squamous LM Ql (Urine sed) 0 SEEN /hpf 0-5 [facility] TSH DL <= 0.005 mIU/L QnOrde red By: Nicola Madison on 03-04-2025 TSH Qn 3.780 uIU/mL 0.300-4.200 [facility] Thyroid Stim Hormone (TSH)on 03-04-2025 TSH 3.780 uIU/mL Normal 0.300-4.200 [facility] Comment on above: Performed By: #### L 501.9520, L501.5200, L501.9985 ####[facility] [address] [place], [place], [id number] Troponin T.cardiac [Mass/vol ume] in Serum or Plasma by High sensitivity methodOrdered By: Chris Ochoa on 03-04-2025 Troponin T.cardiac High sensitivity method [Mass/Vol] 42 ng/L High <22 [facility] Troponin T.cardiac High sensitivity method [Mass/Vol] 45 ng/L High <22 [facility] Troponin T.cardiac High sensitivity method [Mass/Vol] 44 ng/L High <22 [facility] Urinalysis, Completeon 03-04 RBC 5-10 SEEN Normal 0-5 [facility] Comment on above: Order Comment: CLEAN CATCH Performed By: #### L 400.0001 ####[facility] [address] [place], [place], [id number] BACTERIA 2+ /hpf Normal None Seen [facility] Comment on above: Order Comment: CLEAN CATCH Performed By: #### L 400.0001 ####[facility] [address] [place], [address] WBC >100 SEEN Normal 0-5 [facility] Comment on above: Order Comment: CLEAN CATCH Performed By: #### L 400.0001 ####[facility] [address] [place], [address] EPI,SQUAMOUS 0 SEEN Normal 0-5 [facility] Comment on above: Order Comment: CLEAN CATCH Performed By: #### L 400.0001 ####[facility] [address] [place], [place], [address] Mucus Ql (Urine sed) 0 SEEN Normal [facility] Comment on above: Order Comment: CLEAN CATCH Performed By: #### L 400.0001 ####[facility] [address] [place], [place], [id number] Urine clarityOrdered By: Jacob Madison on 03-04-2025 Clarity (U) Cloudy Clear [facility] Urine color determinationOrd ered By: Nicola Madison on 03-04-2025 Color (U) Yellow Yellow [facility] Urine glucose detectionOrder ed By: Nicola Madison on 03-04-2025 Glucose Ql (U) Normal mg/dl Normal [facility] Urine leukocyte esterase det ection by dipstickOrdered By: Nicola Madison on 03-04-2025 Leukocyte esterase Test strip Ql (U) 500 /ul High Negative [facility] Urine pHOrdered By: Nicola stack on 03-04-2025 pH (U) 6.5 [pH] 5.0 - 8.0 [facility] Urine sediment bacteria coun t by microscopy (number/high power field)Ordered By: Nicola Madison on 03-04-2025 Bacteria LM.HPF (Urine sed) [#/Area] 2 /[HPF] None Seen [facility] Urine specific gravity measu rementOrdered By: Nicola Madison on 03-04-2025 Specific gravity (U) [Rel density] 1.010 1.002-1.030 [facility] Urine urobilinogen measureme ntOrdered By: Nicola Madison on 03-04-2025 Urobilinogen Ql (U) Normal mg/dl Normal [facility] White blood cell (WBC) count Ordered By: Chris Ochoa on 03-04-2025 WBC (Bld) [#/Vol] 7.6 10*3/uL 4.4-11.0 [facility] White blood cell countOrdere d By: Nicola Madison on 03-04-2025 White blood cell count >100 SEEN /hpf 0-5 [facility] Absolute lymphocyte countOrd ered By: Russ Wallsangelo on 11-06-2024 Lymphocytes Auto (Unsp spec) [#/Vol] 0.82 10*3/uL Low 0.83-4.51 [facility] Absolute neutrophil countOrd ered By: Russ Wallsangelo on 11-06-2024 Neutrophils (Bld) [#/Vol] 8.1 10*3/uL High 2.0-7.7 [facility] Anion gap in Serum or Plasma Ordered By: Russ Zamora on 11-06-2024 Anion gap [Moles/Vol] 10 mmol/L 5- [facility] Automated lymphocyte count a s percentage of total leukocytesOrdered By: Russ Wallsangelo on 11-06-2024 Lymphocytes/100 WBC Auto (Unsp spec) 8.1 % Low - [facility] BUN/creatinine ratioOrdered By: Russ Wallsangelo on 11-06-2024 Urea nitrogen/Creatinine [Mass ratio] 19.3 mg/mg 10- [facility] Basophil percentageOrdered B y: Russ Zamora on 11-06-2024 Basophils/100 WBC (Bld) 0.3 % 0-1 [facility] Bilirubin, totalOrdered By: Russ Wallsangelo on 11-06-2024 Bilirubin [Mass/Vol] 0.46 mg/dL 0.00-1.30 [facility] CBC W/Diff, Automatedon 10-19 Absolute Lymph 0.82 X10 3/uL Low 0.83-4.51 [facility] Comment on above: Performed By: #### L 500.4050, L504.2610, L100.0100 ####[facility] [address] [place], [address] Absolute Neut 8.1 X10 3/uL High 2.0-7.7 [facility] Comment on above: Performed By: #### L 500.4050, L504.2610, L100.0100 ####[facility] [address] [place], [address] Basophils/100 WBC (Bld) 0.3 % Normal 0-1 [facility] Comment on above: Performed By: #### L 500.4050, L504.2610, L100.0100 ####[facility] [address] [place], [address] Eosinophils/100 WBC (Bld) 1.7 % Normal 0-5 [facility] Comment on above: Performed By: #### L 500.4050, L504.2610, L100.0100 ####[facility] [address] [place], [address] Erythrocyte distribution width (RBC) [Ratio] 16.8 % High 11.6-14.6 [facility] Comment on above: Performed By: #### L 500.4050, L504.2610, L100.0100 ####[facility] [address] [place], [address] Hematocrit (Bld) [Volume fraction] 34.2 % Low 40-54 [facility] Comment on above: Performed By: #### L 500.4050, L504.2610, L100.0100 ####[facility] [address] [place], [address] Hemoglobin (Bld) [Mass/Vol] 10.7 g/dL Low 13.0-16.5 [facility] Comment on above: Performed By: #### L 500.4050, L504.2610, L100.0100 ####[facility] [address] [place], [address] IG% 0.500 Normal 0.0-0.9 [facility] Comment on above: Result Comment: IG% - Immature Granulocytes (promyelocytes, myelocytes andmetamyelocytes) > 1% indicates that a LEFT SHIFT is Present. Performed By: #### L 500.4050, L504.2610, L100.0100 ####[facility] [address] [place], [address] Lymphocytes/100 WBC (Bld) 8.1 % Low 19-41 [facility] Comment on above: Performed By: #### L 500.4050, L504.2610, L100.0100 ####[facility] [address] [place], [address] MCH (RBC) [Entitic mass] 27.4 pg Normal 27.0-32.0 [facility] Comment on above: Performed By: #### L 500.4050, L504.2610, L100.0100 ####[facility] [address] [place], [address] MCHC (RBC) [Mass/Vol] 31.3 g/dL Low 32-36 [facility] Comment on above: Performed By: #### L 500.4050, L504.2610, L100.0100 ####[facility] [address] [place], [address] MCV (RBC) [Entitic vol] 87.5 fL Normal 80-94 [facility] Comment on above: Performed By: #### L 500.4050, L504.2610, L100.0100 ####[facility] [address] [place], [address] Monocytes/100 WBC (Bld) 8.8 % Normal 0-10 [facility] Comment on above: Performed By: #### L 500.4050, L504.2610, L100.0100 ####[facility] [address] [place], [address] Neutrophils/100 WBC (Bld) 80.6 % High 47-70 [facility] Comment on above: Performed By: #### L 500.4050, L504.2610, L100.0100 ####[facility] [address] [place], [address] Nucleated RBC (Bld) [#/Vol] 0 10*3/uL Normal 0-5 [facility] Comment on above: Performed By: #### L 500.4050, L504.2610, L100.0100 ####[facility] [address] [place], [address] Platelet mean volume (Bld) [Entitic vol] 10.4 fL Normal 6.2-12.0 [facility] Comment on above: Performed By: #### L 500.4050, L504.2610, L100.0100 ####[facility] [address] [place], [address] Platelets (Bld) [#/Vol] 212 10*3/uL Normal 150-450 [facility] Comment on above: Performed By: #### L 500.4050, L504.2610, L100.0100 ####[facility] [address] [place], [address] RBC (Bld) [#/Vol] 3.91 10*6/uL Low 4.6-6.2 [facility] Comment on above: Performed By: #### L 500.4050, L504.2610, L100.0100 ####[facility] [address] [place], [address] RDW SD 53.5 fl High 35.1-43.9 [facility] Comment on above: Performed By: #### L 500.4050, L504.2610, L100.0100 ####[facility] [address] [place], [address] WBC (Bld) [#/Vol] 10.1 10*3/uL Normal 4.4-11.0 [facility] Comment on above: Performed By: #### L 500.4050, L504.2610, L100.0100 ####[facility] [address] [place], [address] Carbon dioxide, total [Moles /volume] in Central venous bloodOrdered By: Russ Zamora on 11-06-2024 CO2 [Moles/Vol] 25.2 mmol/L 21.0-32.0 [facility] Chloride assayOrdered By: Flores Zamora on 11-06-2024 Chloride [Moles/Vol] 105 mmol/L 98-108 [facility] Comprehensive Metabolic Prof ilon 11-06-2024 Albumin [Mass/Vol] 3.8 g/dL Normal 3.4-4.8 [facility] Comment on above: Performed By: #### L 500.4050, L504.2610, L100.0100 ####[facility] [address] [place], [address] Albumin/Globulin [Mass ratio] 0.9 {ratio} Normal 0.9-2.4 [facility] Comment on above: Performed By: #### L 500.4050, L504.2610, L100.0100 ####[facility] [address] [place], [address] ALK PHOS 72 U/L Normal 40-129 [facility] Comment on above: Performed By: #### L 500.4050, L504.2610, L100.0100 ####[facility] [address] [place], [address] ALT [Catalytic activity/Vol] 10 U/L Normal <=46 [facility] Comment on above: Performed By: #### L 500.4050, L504.2610, L100.0100 ####[facility] [address] [place], [address] AST [Catalytic activity/Vol] 16 U/L Normal <=37 [facility] Comment on above: Performed By: #### L 500.4050, L504.2610, L100.0100 ####[facility] [address] [place], [address] Bilirubin [Mass/Vol] 0.46 mg/dL Normal 0.00-1.30 [facility] Comment on above: Performed By: #### L 500.4050, L504.2610, L100.0100 ####[facility] [address] [place], [address] BUN/CRE 19.3 RATIO Normal 10-20 [facility] Comment on above: Performed By: #### L 500.4050, L504.2610, L100.0100 ####[facility] [address] [place], [address] Calcium [Mass/Vol] 9.1 mg/dL Normal 7.6-11.0 [facility] Comment on above: Performed By: #### L 500.4050, L504.2610, L100.0100 ####[facility] [address] [place], [address] Chloride [Moles/Vol] 105 mmol/L Normal 98-108 [facility] Comment on above: Performed By: #### L 500.4050, L504.2610, L100.0100 ####[facility] [address] [place], [address] CO2 [Moles/Vol] 25.2 mmol/L Normal 21.0-32.0 [facility] Comment on above: Performed By: #### L 500.4050, L504.2610, L100.0100 ####[facility] [address] [place], [address] Creatinine [Mass/Vol] 1.87 mg/dL High 0.70-1.20 [facility] Comment on above: Performed By: #### L 500.4050, L504.2610, L100.0100 ####[facility] [address] [place], [address] ECRCL 32.00 ml/min Low 50-250 [facility] Comment on above: Performed By: #### L 500.4050, L504.2610, L100.0100 ####[facility] [address] [place], [address] GAP 10 Normal 5-15 [facility] Comment on above: Performed By: #### L 500.4050, L504.2610, L100.0100 ####[facility] [address] [place], [address] GFR/1.73 sq M.predicted among non-blacks MDRD (S/P/Bld) [Vol rate/Area] 36 mL/min/{1.73_m2} Low >60 [facility] Comment on above: Result Comment: mL/m in/1.73m2 CKD-EPI Creatinine Equation (2020) Performed By: #### L 500.4050, L504.2610, L100.0100 ####[facility] [address] [place], [address] Globulin (S) [Mass/Vol] 4.1 g/dL Normal 2.2-4.2 [facility] Comment on above: Performed By: #### L 500.4050, L504.2610, L100.0100 ####[facility] [address] [place], [address] Glucose [Mass/Vol] 132 mg/dL High 70-99 [facility] Comment on above: Performed By: #### L 500.4050, L504.2610, L100.0100 ####[facility] [address] [place], [address] Potassium [Moles/Vol] 4.8 mmol/L Normal 3.3-5.1 [facility] Comment on above: Performed By: #### L 500.4050, L504.2610, L100.0100 ####[facility] [address] [place], [address] Sodium [Moles/Vol] 140 mmol/L Normal 133-145 [facility] Comment on above: Performed By: #### L 500.4050, L504.2610, L100.0100 ####[facility] [address] [place], [address] T PROT 7.9 g/dL Normal 5.9-8.4 [facility] Comment on above: Performed By: #### L 500.4050, L504.2610, L100.0100 ####[facility] [address] [place], [address] Urea nitrogen [Mass/Vol] 36 mg/dL High 4-19 [facility] Comment on above: Performed By: #### L 500.4050, L504.2610, L100.0100 ####[facility] [address] [place], [address] Eosinophil percentageOrdered By: Russ Zamora on 11-06-2024 Eosinophils/100 WBC (Bld) 1.7 % 0-5 [facility] Erythrocyte distribution wid th ratioOrdered By: Russ Zamora on 11-06-2024 Erythrocyte distribution width (RBC) [Ratio] 16.8 % High 11.6-14.6 [facility] Erythrocyte distribution wid th standard deviationOrdered By: Russ Zamora on 11-06-2024 Erythrocyte distribution width (RBC) [Entitic vol] 53.5 fL High 35.1-43.9 [facility] Erythrocyte distribution width (RBC) [Ratio] 53.5 fl High 35.1-43.9 [facility] Estimation of creatinine rowdy aranceOrdered By: Russ Zamora on 11-06-2024 Estimated Creatinine Clearance Calc 32.00 ml/min Low 50-250 [facility] GFR/1.73 sq M.predicted kaylyn g non-blacks MDRD (S/P/Bld) [Vol rate/Area]Ordered By: Russ Zamora on 11-06-2024 Estimated GFR (MDRD) Non-Af Amer 36 Low >60 [facility] Comment on above: mL/min/1.73m2 CKD-EP I Creatinine Equation (2020) Glomerular filtration rate ( GFR) estimation/1.73 sq m using serum, plasma, or whole bOrdered By: Russ Zamora on 11-06-2024 GFR/1.73 sq M.predicted among non-blacks MDRD (S/P/Bld) [Vol rate/Area] 36 mL/min/{1.73_m2} Low >60 [facility] Comment on above: mL/min/1.73m2 CKD-EP I Creatinine Equation (2020) Hematocrit Auto (Bld) [Volum e fraction]Ordered By: Russ Zamora on 11-06-2024 Hematocrit (Bld) [Volume fraction] 34.2 % Low 40-54 [facility] Hemoglobin measurementOrdere d By: Russ Zamora on 11-06-2024 Hemoglobin (Bld) [Mass/Vol] 10.7 g/dL Low 13.0-16.5 [facility] Immature granulocytes/100 WB C Auto (Bld)Ordered By: Russ Zamora on 11-06-2024 Immature granulocytes/100 WBC (Bld) 0.500 % 0.0-0.9 [facility] Comment on above: IG% - Immature Granu locytes (promyelocytes, myelocytes and metamyelocytes) > 1% indicates that a LEFT SHIFT is Present. LDHon 11-06-2024 LDH 135 U/L Normal 87-241 [facility] Comment on above: Order Comment: 1 Performed By: #### L 500.4050, L504.2610, L100.0100 ####[facility] [address] [place], [place], [id number] Laboratory - Chemistry and C hemistry - challengeOrdered By: Russ Zamora on 11-06-2024 AST [Catalytic activity/Vol] 16 U/L <38 [facility] Lactate dehydrogenase (LDH) measurementOrdered By: Russ Zamora on 11-06-2024 LDH [Catalytic activity/Vol] 135 U/L 87-241 [facility] Lymphocytes Auto (Unsp spec) [#/Vol]Ordered By: Russ Zamora on 11-06-2024 Lymphocytes (Bld) [#/Vol] 0.82 10*3/uL Low 0.83-4.5 1 [facility] Lymphocytes/100 WBC Auto (Un sp spec)Ordered By: Russ Zamora on 11-06-2024 Lymphocytes/100 WBC (Bld) 8.1 % Low 19-41 [facility] MCV (mean corpuscular volume ) determinationOrdered By: Russ Zamora on 11-06-2024 MCV (RBC) [Entitic vol] 87.5 fL 80-94 [facility] Mean corpuscular hemoglobin (MCH) determinationOrdered By: Russ Zamora on 11-06-2024 MCH (RBC) [Entitic mass] 27.4 pg 27.0-32.0 [facility] Mean corpuscular hemoglobin concentration (MCHC) determinationOrdered By: Russ Zamora on 11-06-2024 MCHC (RBC) [Mass/Vol] 31.3 g/dL Low 32-36 [facility] Mean platelet volume determi nationOrdered By: Russ Zamora on 11-06-2024 Platelet mean volume (Bld) [Entitic vol] 10.4 fL 6.2-12.0 [facility] Monocyte percentageOrdered B y: Russ Zamora on 11-06-2024 Monocytes/100 WBC (Bld) 8.8 % 0-10 [facility] Neutrophil percentageOrdered By: Russ Zamora on 11-06-2024 Neutrophils/100 WBC (Bld) 80.6 % High 47-70 [facility] Nucleated red blood cell per centageOrdered By: Russ Zamora on 11-06-2024 Nucleated RBC/100 WBC (Bld) [Ratio] 0 % 0-5 [facility] Oncology Visit Reporton - 0-2024 Oncology Visit Report Normal [facility] Platelet countOrdered By: Flores Zamora on 11-06-2024 Platelets (Bld) [#/Vol] 212 10*3/uL 150-450 [facility] Potassium (Unsp spec) [Mass/ Vol]Ordered By: Russ Zamora on 11-06-2024 Potassium [Moles/Vol] 4.8 mmol/L 3.3-5.1 [facility] Potassium measurement (mass/ volume)Ordered By: Russ Zamora on 11-06-2024 Potassium (Unsp spec) [Mass/Vol] 4.8 mmol/L 3.3-5.1 [facility] RBC Auto (Bld) [#/Vol]Ordere d By: Russ Zamora on 11-06-2024 RBC (Bld) [#/Vol] 3.91 10*6/uL Low 4.6-6.2 [facility] Serum creatinine measurement (mass/volume)Ordered By: Russ Zamora on 11-06-2024 Creatinine [Mass/Vol] 1.87 mg/dL High 0.70-1.20 [facility] Serum globulin measurementOr dered By: Russ Zamora on 11-06-2024 Globulin (S) [Mass/Vol] 4.1 g/dL 2.2-4.2 [facility] Serum glucose measurement (m ass/volume)Ordered By: Russ Zamora on 11-06-2024 Glucose [Mass/Vol] 132 mg/dL High 70-99 [facility] Serum or plasma alanine otriz otransferase (ALT) measurementOrdered By: Russ Zamora on 11-06-2024 ALT [Catalytic activity/Vol] 10 U/L <47 [facility] Serum or plasma albumin kingsley urement (mass/volume)Ordered By: Russ Zamora on 11-06-2024 Albumin [Mass/Vol] 3.8 g/dL 3.4-4.8 [facility] Serum or plasma albumin/glob ulin mass ratioOrdered By: Russ Zamora on 11-06-2024 Albumin/Globulin [Mass ratio] 0.9 {ratio} 0.9-2.4 [facility] Serum or plasma alkaline roosevelt sphatase measurementOrdered By: Russ Zamora on 11-06-2024 ALP [Catalytic activity/Vol] 72 U/L 40-129 [facility] Serum or plasma calcium kingsley urement (mass/volume)Ordered By: Russ Zamora on 11-06-2024 Calcium [Mass/Vol] 9.1 mg/dL 7.6-11.0 [facility] Serum or plasma urea nitroge n measurement (mass/volume)Ordered By: Russ Zamora on 11-06-2024 Urea nitrogen [Mass/Vol] 36 mg/dL High 4-19 [facility] Sodium levelOrdered By: Esau Zamora on 11-06-2024 Sodium [Moles/Vol] 140 mmol/L 133-145 [facility] Total proteinOrdered By: Frantz Zamora on 11-06-2024 Protein [Mass/Vol] 7.9 g/dL 5.9-8.4 [facility] White blood cell (WBC) count Ordered By: Russ Zamora on 11-06-2024 WBC (Bld) [#/Vol] 10.1 10*3/uL 4.4-11.0 [facility] CREATININE FINGERSTICKon Creatinine [Mass/Vol] 1.5 mg/dL High 0.70-1.30 [facility] Comment on above: Performed By: #### L 9100.0200 ####[facility] [address] [place], [place], [id number] GFR/1.73 sq M.predicted among non-blacks MDRD (S/P/Bld) [Vol rate/Area] 48.0000 mL/min/{1.73_m2} Low >60 [facility] Comment on above: Performed By: #### L 9100.0200 ####[facility] [address] [place], [address] CT Chest AND Abd W/ Contrast on 10-30-2024 CT Chest AND Abd W/ Contrast Normal [facility] Creatinine measurement at be dsideOrdered By: Russ Zamora on 10-30-2024 Creatinine [Mass/Vol] 1.5 mg/dL High 0.70-1.30 [facility] EGFROrdered By: Russ Zamora on 10-30-2024 GFR/1.73 sq M.predicted among non-blacks MDRD (S/P/Bld) [Vol rate/Area] 48.0000 mL/min/{1.73_m2} Low >60 [facility] Pulmonary Visit Reporton Pulmonary Visit Report Normal [facility] Hemoglobin A1con 10-21-2024 HbA1c (Bld) [Mass fraction] 6.6 % Normal <=5.6 [facility] Comment on above: Performed By: #### L 501.9985 ####[facility] [address] [place], [address] Hemoglobin A1c percentageOrd ered By: Tonio Fajardo on 10-20-2024 HbA1c (Bld) [Mass fraction] 6.6 % >5.7 [facility] 6 Minute Walk Teston 28-2 025 6 Minute Walk Test Normal [facility] Absolute neutrophil countOrd ered By: Leslie Arriaga on 09-25-2024 Neutrophils (Bld) [#/Vol] 6.7 10*3/uL 2.0-7.7 [facility] BNP (brain natriuretic pepti de measurement)Ordered By: Leslie Arriaga on 09-25-2024 Natriuretic peptide B (Bld) [Mass/Vol] 183.7 pg/mL High 0-100 [facility] BNP,B-Type NATRIURETIC PEPTI Adrienne 09-25-2024 Natriuretic peptide B (Bld) [Mass/Vol] 183.7 pg/mL High 0-100 [facility] Comment on above: Performed By: #### L 100.0100, L503.6620, L500.2500 ####[facility] [address] [place], [address] Basic Metabolic Profile (BMP )on 09-25-2024 BUN/CRE 15.4 RATIO Normal 10-20 [facility] Comment on above: Performed By: #### L 100.0100, L503.6620, L500.2500 ####[facility] [address] [place], [address] CA,Total 9.1 mg/dL Normal 8.5-10.1 [facility] Comment on above: Performed By: #### L 100.0100, L503.6620, L500.2500 ####[facility] [address] [place], [address] Chloride [Moles/Vol] 105 mmol/L Normal 98-107 [facility] Comment on above: Performed By: #### L 100.0100, L503.6620, L500.2500 ####[facility] [address] [place], [address] CO2 [Moles/Vol] 28.0 mmol/L Normal 21.0-32.0 [facility] Comment on above: Performed By: #### L 100.0100, L503.6620, L500.2500 ####[facility] [address] [place], [address] Creatinine [Mass/Vol] 2.21 mg/dL High 0.70-1.30 [facility] Comment on above: Result Comment: The validity of the calculated GFR GFRAA in patients over70 years has not been determined. Clinical correlation isessential. Performed By: #### L 100.0100, L503.6620, L500.2500 ####[facility] [address] [place], [address] EST GFR - AA 37 mL/min Low >60 [facility] Comment on above: Result Comment: Afri can [place] GFR Calc Performed By: #### L 100.0100, L503.6620, L500.2500 ####[facility] [address] [place], [address] GAP 5 Normal 5-15 [facility] Comment on above: Performed By: #### L 100.0100, L503.6620, L500.2500 ####[facility] [address] [place], [address] GFR/1.73 sq M.predicted among non-blacks MDRD (S/P/Bld) [Vol rate/Area] 31 mL/min/{1.73_m2} Low >60 [facility] Comment on above: Result Comment: Non- GFR Calc Performed By: #### L 100.0100, L503.6620, L500.2500 ####[facility] [address] [place], [address] Glucose [Mass/Vol] 127 mg/dL High 74-106 [facility] Comment on above: Result Comment: Fast ing Glucose result greater than or equal to 126 mg/dLsuggests DIABETES MELLITUS per A.D.A. criteria. Performed By: #### L 100.0100, L503.6620, L500.2500 ####[facility] [address] [place], [address] Potassium [Moles/Vol] 4.3 mmol/L Normal 3.5-5.1 [facility] Comment on above: Performed By: #### L 100.0100, L503.6620, L500.2500 ####[facility] [address] [place], [address] Sodium [Moles/Vol] 138 mmol/L Normal 136-145 [facility] Comment on above: Performed By: #### L 100.0100, L503.6620, L500.2500 ####[facility] [address] [place], [address] Urea nitrogen [Mass/Vol] 34 mg/dL High 7-18 [facility] Comment on above: Performed By: #### L 100.0100, L503.6620, L500.2500 ####[facility] [address] [place], [address] Basophil percentageOrdered B y: Leslie Arriaga on 09-25-2024 Basophils/100 WBC (Bld) 0.6 % 0-1 [facility] Blood urea nitrogen (BUN)/cr eatinine ratioOrdered By: Leslie Arriaga on 09-25-2024 Urea nitrogen/Creatinine [Mass ratio] 15.4 mg/mg 10-20 [facility] CBC W/Diff, Automatedon Absolute Lymph 0.91 X10 3/uL Normal 0.83-4.51 [facility] Comment on above: Performed By: #### L 100.0100, L503.6620, L500.2500 ####[facility] [address] [place], [address] Absolute Neut 6.7 X10 3/uL Normal 2.0-7.7 [facility] Comment on above: Performed By: #### L 100.0100, L503.6620, L500.2500 ####[facility] [address] [place], [address] Basophils/100 WBC (Bld) 0.6 % Normal 0-1 [facility] Comment on above: Performed By: #### L 100.0100, L503.6620, L500.2500 ####[facility] [address] [place], [address] Eosinophils/100 WBC (Bld) 1.1 % Normal 0-5 [facility] Comment on above: Performed By: #### L 100.0100, L503.6620, L500.2500 ####[facility] [address] [place], [address] Erythrocyte distribution width (RBC) [Ratio] 16.2 % High 11.6-14.6 [facility] Comment on above: Performed By: #### L 100.0100, L503.6620, L500.2500 ####[facility] [address] [place], [address] Hematocrit (Bld) [Volume fraction] 36.0 % Low 40-54 [facility] Comment on above: Performed By: #### L 100.0100, L503.6620, L500.2500 ####[facility] [address] [place], [address] Hemoglobin (Bld) [Mass/Vol] 11.1 g/dL Low 13.0-16.5 [facility] Comment on above: Performed By: #### L 100.0100, L503.6620, L500.2500 ####[facility] [address] [place], [address] IG% 0.700 Normal 0.0-0.9 [facility] Comment on above: Result Comment: IG% - Immature Granulocytes (promyelocytes, myelocytes andmetamyelocytes) > 1% indicates that a LEFT SHIFT is Present. Performed By: #### L 100.0100, L503.6620, L500.2500 ####[facility] [address] [place], [address] Lymphocytes/100 WBC (Bld) 10.4 % Low 19-41 [facility] Comment on above: Performed By: #### L 100.0100, L503.6620, L500.2500 ####[facility] [address] [place], [address] MCH (RBC) [Entitic mass] 27.7 pg Normal 27.0-32.0 [facility] Comment on above: Performed By: #### L 100.0100, L503.6620, L500.2500 ####[facility] [address] [place], [address] MCHC (RBC) [Mass/Vol] 30.8 g/dL Low 32-36 [facility] Comment on above: Performed By: #### L 100.0100, L503.6620, L500.2500 ####[facility] [address] [place], [address] MCV (RBC) [Entitic vol] 89.8 fL Normal 80-94 [facility] Comment on above: Performed By: #### L 100.0100, L503.6620, L500.2500 ####[facility] [address] [place], [address] Monocytes/100 WBC (Bld) 10.3 % High 0-10 [facility] Comment on above: Performed By: #### L 100.0100, L503.6620, L500.2500 ####[facility] [address] [place], [address] Neutrophils/100 WBC (Bld) 76.9 % High 47-70 [facility] Comment on above: Performed By: #### L 100.0100, L503.6620, L500.2500 ####[facility] [address] [place], [address] Nucleated RBC (Bld) [#/Vol] 0 10*3/uL Normal 0-5 [facility] Comment on above: Performed By: #### L 100.0100, L503.6620, L500.2500 ####[facility] [address] [place], [address] Platelet mean volume (Bld) [Entitic vol] 10.5 fL Normal 6.2-12.0 [facility] Comment on above: Performed By: #### L 100.0100, L503.6620, L500.2500 ####[facility] [address] [place], [address] Platelets (Bld) [#/Vol] 256 10*3/uL Normal 150-450 [facility] Comment on above: Performed By: #### L 100.0100, L503.6620, L500.2500 ####[facility] [address] [place], [address] RBC (Bld) [#/Vol] 4.01 10*6/uL Low 4.6-6.2 [facility] Comment on above: Performed By: #### L 100.0100, L503.6620, L500.2500 ####[facility] [address] [place], [address] RDW SD 52.7 fl High 35.1-43.9 [facility] Comment on above: Performed By: #### L 100.0100, L503.6620, L500.2500 ####[facility] [address] [place], [address] WBC (Bld) [#/Vol] 8.7 10*3/uL Normal 4.4-11.0 [facility] Comment on above: Performed By: #### L 100.0100, L503.6620, L500.2500 ####[facility] [address] [place], [address] Carbon dioxide measurementOr dered By: Leslie Arriaga on 09-25-2024 CO2 [Moles/Vol] 28.0 mmol/L 21.0-32.0 [facility] Cardiology Visit Reporton Cardiology Visit Report Normal [facility] Chest PA and Lateralon 09-25 Chest PA and Lateral Normal [facility] Chloride measurementOrdered By: Leslie Arriaga on 09-25-2024 Chloride [Moles/Vol] 105 mmol/L 98-107 [facility] Eosinophil percentageOrdered By: Leslie Arriaga on 09-25-2024 Eosinophils/100 WBC (Bld) 1.1 % 0-5 [facility] Erythrocyte distribution wid th ratioOrdered By: Leslie Arriaga on 09-25-2024 Erythrocyte distribution width (RBC) [Ratio] 16.2 % High 11.6-14.6 [facility] Erythrocyte distribution wid th standard deviationOrdered By: Leslie Arriaga on 09-25-2024 Erythrocyte distribution width (RBC) [Entitic vol] 52.7 fL High 35.1-43.9 [facility] Estimated glomerular filtrat ion rate (GFR) AmericanOrdered By: Leslie Arriaga on 09-25-2024 Estimated GFR (MDRD) Amer 37 mL/min Low >60 [facility] Comment on above: GFR Calc Glomerular filtration rate ( GFR) estimationOrdered By: Leslie Arriaga on 09-25-2024 Estimated GFR (MDRD) Non-Af Amer 31 mL/min Low >60 [facility] Comment on above: Non- GFR Calc Glucose measurementOrdered B y: Leslie Arriaga on 09-25-2024 Glucose [Mass/Vol] 127 mg/dL High 74-106 [facility] Comment on above: Fasting Glucose resu lt greater than or equal to 126 mg/dL suggests DIABETES MELLITUS per A.D.A. criteria. Hematocrit Auto (Bld) [Volum e fraction]Ordered By: Leslie Arriaga on 09-25-2024 Hematocrit (Bld) [Volume fraction] 36.0 % Low 40-54 [facility] Hemoglobin measurementOrdere d By: Leslie Arriaga on 09-25-2024 Hemoglobin (Bld) [Mass/Vol] 11.1 g/dL Low 13.0-16.5 [facility] Immature granulocytes/100 WB C Auto (Bld)Ordered By: Leslie Arriaga on 09-25-2024 Immature granulocytes/100 WBC (Bld) 0.700 % 0.0-0.9 [facility] Comment on above: IG% - Immature Granu locytes (promyelocytes, myelocytes and metamyelocytes) > 1% indicates that a LEFT SHIFT is Present. Lymphocytes Auto (Unsp spec) [#/Vol]Ordered By: Leslie Arriaga on 09-25-2024 Lymphocytes (Bld) [#/Vol] 0.91 10*3/uL 0.83-4.5 1 [facility] Lymphocytes/100 WBC Auto (Un sp spec)Ordered By: Leslie Arriaga on 09-25-2024 Lymphocytes/100 WBC (Bld) 10.4 % Low 19-41 [facility] MCV (mean corpuscular volume ) determinationOrdered By: Leslie Arriaga on 09-25-2024 MCV (RBC) [Entitic vol] 89.8 fL 80-94 [facility] Mean corpuscular hemoglobin (MCH) determinationOrdered By: Leslie Arriaga on 09-25-2024 MCH (RBC) [Entitic mass] 27.7 pg 27.0-32.0 [facility] Mean corpuscular hemoglobin concentration (MCHC) determinationOrdered By: Leslie Arriaga on 09-25-2024 MCHC (RBC) [Mass/Vol] 30.8 g/dL Low 32-36 [facility] Mean platelet volume determi nationOrdered By: Leslie Arriaga on 09-25-2024 Platelet mean volume (Bld) [Entitic vol] 10.5 fL 6.2-12.0 [facility] Monocyte percentageOrdered B y: Leslie Arriaga on 09-25-2024 Monocytes/100 WBC (Bld) 10.3 % High 0-10 [facility] Neutrophil percentageOrdered By: Leslie Arriaga on 09-25-2024 Neutrophils/100 WBC (Bld) 76.9 % High 47-70 [facility] Nucleated red blood cell per centageOrdered By: Leslie Arriaga on 09-25-2024 Nucleated RBC/100 WBC (Bld) [Ratio] 0 % 0-5 [facility] Platelet countOrdered By: Linsey Arriaga on 09-25-2024 Platelets (Bld) [#/Vol] 256 10*3/uL 150-450 [facility] Potassium measurementOrdered By: Leslie Arriaga on 09-25-2024 Potassium [Moles/Vol] 4.3 mmol/L 3.5-5.1 [facility] RBC Auto (Bld) [#/Vol]Ordere d By: Leslie Arriaga on 09-25-2024 RBC (Bld) [#/Vol] 4.01 10*6/uL Low 4.6-6.2 [facility] Serum anion gap measurementO rdered By: Leslie Arriaga on 09-25-2024 Anion gap [Moles/Vol] 5 mmol/L 5-15 [facility] Serum or plasma calcium kingsley urement (mass/volume)Ordered By: Leslie Arriaga on 09-25-2024 Calcium [Mass/Vol] 9.1 mg/dL 8.5-10.1 [facility] Serum or plasma creatinine m easurement (mass/volume)Ordered By: Leslie Arriaga on 09-25-2024 Creatinine [Mass/Vol] 2.21 mg/dL High 0.70-1.30 [facility] Comment on above: The validity of the calculated GFR & GFRAA in patients over 70 years has not been determined. Clinical correlation is essential. Serum or plasma urea nitroge n measurement (mass/volume)Ordered By: Leslie Arriaga on 09-25-2024 Urea nitrogen [Mass/Vol] 34 mg/dL High 7-18 [facility] Sodium levelOrdered By: Brian Arriaga on 09-25-2024 Sodium [Moles/Vol] 138 mmol/L 136-145 [facility] White blood cell (WBC) count Ordered By: Leslie Santiagoell on 09-25-2024 WBC (Bld) [#/Vol] 8.7 10*3/uL 4.4-11.0 [facility] Culture, Fungus 8482on 08-04 CUF Normal [facility] Comment on above: Performed By: #### M 100.4001, M100.1999, M600.2000, M100.3000 ####[facility] [address] [place], [address] Culture, Anaerobic Any Sourc talat 07-09-2024 CUAN Prevotella and Porphyromonas species are generally SUSCEPTIBLE to Cefoxitin, Chloramphenicol, and Metronidazole and are usually RESISTANT to Penicillin. Prevotella oralis Beta Lactamase-Reportable Positive [facility] Comment on above: Performed By: #### M 100.4001, M100.1999, M600.2000, M100.3000 ####[facility] [address] [place], [address] Wound Cultureon 07-05-2024 WC Normal [facility] Comment on above: Performed By: #### M 100.4001, M100.2000, M600.2000, M100.3000 ####[facility] [address] [place], [address] Gram Stainon 07-04-2024 GS Positive [facility] Comment on above: Performed By: #### M 100.4001, M100.2000, M600.2000, M100.3000 ####[facility] [address] [place], [address] Bacteria identified Anaer cx Nom (Unsp spec)Ordered By: Joaquim Suárez on 07-03-2024 Anaerobic Culture Prevotella oralis Abnormal [facility] Fungus identified Cx Nom (Un sp spec)Ordered By: Joaquim Suárez on 07-03-2024 Fungal Culture Ann-Marie parapsilosis Abnormal [facility] Gram stainOrdered By: Bladimir Suárez on 07-03-2024 Microscopic observation Gram stain Nom (Unsp spec) [facility] Routine wound cultureOrdered By: Joaquim Suárez on 07-03-2024 Wound Culture Staphylococcus pseudintermediu Abnormal [facility] Lower Ext Art Exam w/o Exerc soco 06-17-2024 Lower Ext Art Exam w/o Exercis Normal [facility] Venous Duplex US - Hi Extre mon 06-17-2024 Venous Duplex US - Hi Extrem Normal [facility] CBC W/Diff, Automatedon - Absolute Lymph 0.94 X10 3/uL Normal 0.83-4.51 [facility] Comment on above: Performed By: #### L 504.2610, L100.0100, L500.4050 ####[facility] [address] [place], [address] Absolute Neut 5.7 X10 3/uL Normal 2.0-7.7 [facility] Comment on above: Performed By: #### L 504.2610, L100.0100, L500.4050 ####[facility] [address] [place], [address] Basophils/100 WBC (Bld) 0.6 % Normal 0-1 [facility] Comment on above: Performed By: #### L 504.2610, L100.0100, L500.4050 ####[facility] [address] [place], [address] Eosinophils/100 WBC (Bld) 2.5 % Normal 0-5 [facility] Comment on above: Performed By: #### L 504.2610, L100.0100, L500.4050 ####[facility] [address] [place], [address] Erythrocyte distribution width (RBC) [Ratio] 16.3 % High 11.6-14.6 [facility] Comment on above: Performed By: #### L 504.2610, L100.0100, L500.4050 ####[facility] [address] [place], [address] Hematocrit (Bld) [Volume fraction] 36.9 % Low 40-54 [facility] Comment on above: Performed By: #### L 504.2610, L100.0100, L500.4050 ####[facility] [address] [place], [address] Hemoglobin (Bld) [Mass/Vol] 11.3 g/dL Low 13.0-16.5 [facility] Comment on above: Performed By: #### L 504.2610, L100.0100, L500.4050 ####[facility] [address] [place], [address] IG% 1.400 High 0.0-0.9 [facility] Comment on above: Result Comment: IG% - Immature Granulocytes (promyelocytes, myelocytes andmetamyelocytes) > 1% indicates that a LEFT SHIFT is Present. Performed By: #### L 504.2610, L100.0100, L500.4050 ####[facility] [address] [place], [address] Lymphocytes/100 WBC (Bld) 11.8 % Low 19-41 [facility] Comment on above: Performed By: #### L 504.2610, L100.0100, L500.4050 ####[facility] [address] [place], [address] MCH (RBC) [Entitic mass] 27.2 pg Normal 27.0-32.0 [facility] Comment on above: Performed By: #### L 504.2610, L100.0100, L500.4050 ####[facility] [address] [place], [address] MCHC (RBC) [Mass/Vol] 30.6 g/dL Low 32-36 [facility] Comment on above: Performed By: #### L 504.2610, L100.0100, L500.4050 ####[facility] [address] [place], [address] MCV (RBC) [Entitic vol] 88.7 fL Normal 80-94 [facility] Comment on above: Performed By: #### L 504.2610, L100.0100, L500.4050 ####[facility] [address] [place], [address] Monocytes/100 WBC (Bld) 11.6 % High 0-10 [facility] Comment on above: Performed By: #### L 504.2610, L100.0100, L500.4050 ####[facility] [address] [place], [address] Neutrophils/100 WBC (Bld) 72.1 % High 47-70 [facility] Comment on above: Performed By: #### L 504.2610, L100.0100, L500.4050 ####[facility] [address] [place], [address] Nucleated RBC (Bld) [#/Vol] 0 10*3/uL Normal 0-5 [facility] Comment on above: Performed By: #### L 504.2610, L100.0100, L500.4050 ####[facility] [address] [place], [address] Platelet mean volume (Bld) [Entitic vol] 9.9 fL Normal 6.2-12.0 [facility] Comment on above: Performed By: #### L 504.2610, L100.0100, L500.4050 ####[facility] [address] [place], [address] Platelets (Bld) [#/Vol] 222 10*3/uL Normal 150-450 [facility] Comment on above: Performed By: #### L 504.2610, L100.0100, L500.4050 ####[facility] [address] [place], [address] RBC (Bld) [#/Vol] 4.16 10*6/uL Low 4.6-6.2 [facility] Comment on above: Performed By: #### L 504.2610, L100.0100, L500.4050 ####[facility] [address] [place], [address] RDW SD 53.2 fl High 35.1-43.9 [facility] Comment on above: Performed By: #### L 504.2610, L100.0100, L500.4050 ####[facility] [address] [place], [address] WBC (Bld) [#/Vol] 8.0 10*3/uL Normal 4.4-11.0 [facility] Comment on above: Performed By: #### L 504.2610, L100.0100, L500.4050 ####[facility] [address] [place], [address] Comprehensive Metabolic [facility] 05-05-2024 Albumin [Mass/Vol] 3.1 g/dL Low 3.2-5.0 [facility] Comment on above: Order Comment: 1 Performed By: #### L 504.2610, L100.0100, L500.4050 ####[facility] [address] [place], [address] Albumin/Globulin [Mass ratio] 0.6 {ratio} Low 0.9-2.4 [facility] Comment on above: Order Comment: 1 Performed By: #### L 504.2610, L100.0100, L500.4050 ####[facility] [address] [place], [address] ALK P 60 U/L Normal 45-117 [facility] Comment on above: Order Comment: 1 Performed By: #### L 504.2610, L100.0100, L500.4050 ####[facility] [address] [place], [address] ALT [Catalytic activity/Vol] 15 U/L Low 16-61 [facility] Comment on above: Order Comment: 1 Performed By: #### L 504.2610, L100.0100, L500.4050 ####[facility] [address] [place], [address] AST [Catalytic activity/Vol] 11 U/L Low 15-37 [facility] Comment on above: Order Comment: 1 Performed By: #### L 504.2610, L100.0100, L500.4050 ####[facility] [address] [place], [address] Bilirubin [Mass/Vol] 0.40 mg/dL Normal 0.20-1.00 [facility] Comment on above: Order Comment: 1 Result Comment: For patients on eltrombopag therapy, use of Dimension [place] TBIL is not recommended. Performed By: #### L 504.2610, L100.0100, L500.4050 ####[facility] [address] [place], [address] BUN/CRE 20.3 RATIO High 10-20 [facility] Comment on above: Order Comment: 1 Performed By: #### L 504.2610, L100.0100, L500.4050 ####[facility] [address] [place], [address] CA,Total 9.3 mg/dL Normal 8.5-10.1 [facility] Comment on above: Order Comment: 1 Performed By: #### L 504.2610, L100.0100, L500.4050 ####[facility] [address] [place], [address] Chloride [Moles/Vol] 104 mmol/L Normal 98-107 [facility] Comment on above: Order Comment: 1 Performed By: #### L 504.2610, L100.0100, L500.4050 ####[facility] [address] [place], [address] CO2 [Moles/Vol] 27.0 mmol/L Normal 21.0-32.0 [facility] Comment on above: Order Comment: 1 Performed By: #### L 504.2610, L100.0100, L500.4050 ####[facility] [address] [place], [address] Creatinine [Mass/Vol] 2.17 mg/dL High 0.70-1.30 [facility] Comment on above: Order Comment: 1 Result Comment: The validity of the calculated GFR GFRAA in patients over70 years has not been determined. Clinical correlation isessential. Performed By: #### L 504.2610, L100.0100, L500.4050 ####[facility] [address] [place], [address] ECRCL 27.63 ml/min Normal [facility] Comment on above: Order Comment: 1 Performed By: #### L 504.2610, L100.0100, L500.4050 ####[facility] [address] [place], [address] EST GFR - AA 38 mL/min Low >60 [facility] Comment on above: Order Comment: 1 Result Comment: Afri can [place] GFR Calc Performed By: #### L 504.2610, L100.0100, L500.4050 ####[facility] [address] [place], [address] GAP 3 Low 5-15 [facility] Comment on above: Order Comment: 1 Performed By: #### L 504.2610, L100.0100, L500.4050 ####[facility] [address] [place], [address] GFR/1.73 sq M.predicted among non-blacks MDRD (S/P/Bld) [Vol rate/Area] 31 mL/min/{1.73_m2} Low >60 [facility] Comment on above: Order Comment: 1 Result Comment: Non- GFR Calc Performed By: #### L 504.2610, L100.0100, L500.4050 ####[facility] [address] [place], [address] Globulin (S) [Mass/Vol] 4.9 g/dL High 2.2-4.2 [facility] Comment on above: Order Comment: 1 Performed By: #### L 504.2610, L100.0100, L500.4050 ####[facility] [address] [place], [address] Glucose [Mass/Vol] 130 mg/dL High 74-106 [facility] Comment on above: Order Comment: 1 Result Comment: Fast ing Glucose result greater than or equal to 126 mg/dLsuggests DIABETES MELLITUS per A.D.A. criteria. Performed By: #### L 504.2610, L100.0100, L500.4050 ####[facility] [address] [place], [address] Potassium [Moles/Vol] 4.8 mmol/L Normal 3.5-5.1 [facility] Comment on above: Order Comment: 1 Performed By: #### L 504.2610, L100.0100, L500.4050 ####[facility] [address] [place], [address] Sodium [Moles/Vol] 134 mmol/L Low 136-145 [facility] Comment on above: Order Comment: 1 Performed By: #### L 504.2610, L100.0100, L500.4050 ####[facility] [address] [place], [address] T PROT 8.0 g/dL Normal 6.4-8.2 [facility] Comment on above: Order Comment: 1 Performed By: #### L 504.2610, L100.0100, L500.4050 ####[facility] [address] [place], [address] Urea nitrogen [Mass/Vol] 44 mg/dL High 7-18 [facility] Comment on above: Order Comment: 1 Performed By: #### L 504.2610, L100.0100, L500.4050 ####[facility] [address] [place], [address] Estimated glomerular filtrat ion rate (GFR) AmericanOrdered By: Russ Zamora on 05-05-2024 Estimated GFR (MDRD) Amer 38 mL/min Low >60 [facility] Comment on above: GFR Calc LDHon 05-05-2024 LDH 126 U/L Normal 87-241 [facility] Comment on above: Order Comment: 1 Performed By: #### L 504.2610, L100.0100, L500.4050 ####[facility] [address] [place], [address] Oncology Visit Reporton 04-20 Oncology Visit Report Normal [facility] CREATININE FINGERSTICKon Creatinine [Mass/Vol] 1.4 mg/dL High 0.70-1.30 [facility] Comment on above: Performed By: #### L 9100.0200 ####[facility] [address] [place], [address] GFR/1.73 sq M.predicted among non-blacks MDRD (S/P/Bld) [Vol rate/Area] 50.0000 mL/min/{1.73_m2} Low >60 [facility] Comment on above: Performed By: #### L 9100.0200 ####[facility] [address] [place], [address] CT Chest AND Abd W/ Contrast on 04-28-2024 CT Chest AND Abd W/ Contrast Normal [facility] Miscellaneous procedureOrder ed By: Russ Zamora on 01-28-2024 Miscellaneous Test See comment [facility] Comment on above: Sent directly to [facility] per ordering physician. Bacteria identified Cx Nom ( Wound)Ordered By: Joaquim Suárez on 12-24-2023 Wound Culture Staphylococcus pseudintermediu [facility] Wound Culture Enterococcus faecalis [facility] Wound Culture Streptococcus pyogenes [facility] Gram stain for investigation of transfusion reactionOrdered By: Joaquim Suárez on 12-24-2023 Microscopic observation Gram stain Nom (Unsp spec) [facility] Absolute lymphocyte countOrd ered By: Russ Zamora on 11-06-2023 Lymphocytes Auto (Unsp spec) [#/Vol] 0.95 10*3/uL 0.83-4.51 [facility] Addendum DocumentOrdered By: Russ Zamora on 11-06-2023 Serum Immunofixation Comments Comment . [facility] Comment on above: Protein electrophore sis scan will follow via computer,mail, or title i paraprofessional delivery. Albumin Elph [Mass/Vol]Order ed By: Russ Zamora on 11-06-2023 Albumin [Mass/Vol] 3.2 g/dL 2.9-4.4 [facility] Alpha 1 globulin Elph [Mass/ Vol]Ordered By: Russ Zamora on 11-06-2023 Avrbv-2-Bpuafzrvt (PILY) 0.4 g/dL 0.0-0.4 [facility] Mxqjd-1-Zhszwsgrh (PILY) 1.3 g/dL High 0.4-1.0 [facility] Automated lymphocyte count a s percentage of total leukocytesOrdered By: Russ Zamora on 11-06-2023 Lymphocytes/100 WBC Auto (Unsp spec) 10.5 % 19-41 [facility] Basophil percentageOrdered B y: Russ Zamora on 11-06-2023 Basophils/100 WBC (Bld) 0.6 % 0-1 [facility] Bilirubin [Mass/Vol] 0.30 mg/dL 0.20-1.00 [facility] Comment on above: For patients on eltr ombopag therapy, use of Dimension [place] TBIL is not recommended. Chloride [Moles/Vol] 105 mmol/L 98-107 [facility] Eosinophils/100 WBC (Bld) 2.1 % 0-5 [facility] Glucose [Mass/Vol] 106 mg/dL 74-106 [facility] Comment on above: Fasting Glucose resu lt from 100 to 125 mg/dL suggests IMPAIRED HOMEOSTASIS per A.D.A. criteria. Hemoglobin (Bld) [Mass/Vol] 11.5 g/dL 13.0-16.5 [facility] LDH [Catalytic activity/Vol] 170 U/L 87-241 [facility] Monocytes/100 WBC (Bld) 10.7 % 0-10 [facility] Neutrophils (Bld) [#/Vol] 6.8 10*3/uL 2.0-7.7 [facility] Neutrophils/100 WBC (Bld) 75.2 % 47-70 [facility] Potassium [Moles/Vol] 4.3 mmol/L 3.5-5.1 [facility] Protein [Mass/Vol] 8.2 g/dL 6.4-8.2 [facility] Sodium [Moles/Vol] 135 mmol/L 136-145 [facility] WBC (Bld) [#/Vol] 9.0 10*3/uL 4.4-11.0 [facility] Beta globulin Elph [Mass/Vol ]Ordered By: Russ Zamora on 11-06-2023 Beta-Globulins (PILY) 1.0 g/dL 0.7-1.3 [facility] C-reactive protein measureme nt by high sensitivity methodOrdered By: Russ Zamora on 11-06-2023 C-Reactive Protein Extended Range 22.10 mg/L High 0.0-3.0 [facility] Comment on above: C-Reactive Protein ( CRP) provides useful information for thediagnosis, therapy and monitoring of inflammatory processesand associated diseases. For the evaluation of Relative Riskfor Cardiovascular Disease, a High Sensitivity CRP (HSCRP)should be ordered. C-reactive protein measurement by high sensitivity method 22.10 mg/L High 0.0-3.0 [facility] Comment on above: C-Reactive Protein ( CRP) provides useful information for thediagnosis, therapy and monitoring of inflammatory processesand associated diseases. For the evaluation of Relative Riskfor Cardiovascular Disease, a High Sensitivity CRP (HSCRP)should be ordered. Determination of erythrocyte mean corpuscular volume (MCV)Ordered By: Russ Zamora on 11-06-2023 MCV (RBC) [Entitic vol] 88.0 fL 80-94 [facility] Erythrocyte distribution wid th ratioOrdered By: uRss Zamora on 11-06-2023 Erythrocyte distribution width (RBC) [Ratio] 15.5 % 11.6-14.6 [facility] Erythrocyte distribution wid th standard deviationOrdered By: Russ Zamora on 11-06-2023 Erythrocyte distribution width (RBC) [Entitic vol] 49.5 fL 35.1-43.9 [facility] Erythrocyte sedimentation ra teOrdered By: Russ Zamora on 11-06-2023 ESR (Bld) [Velocity] 21 mm/h High 0-20 [facility] Gamma globulin Elph [Mass/Vo l]Ordered By: Russ Zamora on 11-06-2023 Gamma Globulins (PILY) 1.8 g/dL 0.4-1.8 [facility] Hematocrit Auto (Bld) [Volum e fraction]Ordered By: Russ Zamora on 11-06-2023 Hematocrit (Bld) [Volume fraction] 36.8 % 40-54 [facility] Hemoglobin (Reticulocytes) [ Entitic mass]Ordered By: Russ Zamora on 11-06-2023 Reticulocyte Hemoglobin Equivalent 31.4 pg 30-35 [facility] Hemoglobin in reticulocytes (mass per reticulocyte)Ordered By: Russ Zamora on 11-06-2023 Hemoglobin (Reticulocytes) [Entitic mass] 31.4 pg 30-35 [facility] IgA [Mass/Vol]Ordered By: Flores Zamora on 11-06-2023 Immunoglobulin A 311 mg/dL 61-437 [facility] IgG [Mass/Vol]Ordered By: Flores Zamora on 11-06-2023 Immunoglobulin G 1529 mg/dL 603-1613 [facility] Immature granulocytes/100 WB C Auto (Bld)Ordered By: Russ Zamora on 11-06-2023 Immature granulocytes/100 WBC (Bld) 0.900 % 0.0-0.9 [facility] Comment on above: IG% - Immature Granu locytes (promyelocytes, myelocytes and metamyelocytes) > 1% indicates that a LEFT SHIFT is Present. Immature reticulocyte fracti onOrdered By: Russ Zamora on 11-06-2023 Immature Reticulocyte Fraction 22.10 % High 3.00-15.90 [facility] Immunoglobulin M measurement Ordered By: Russ Zamora on 11-06-2023 Immunoglobulin M 157 mg/dL High 15-143 [facility] Immunoglobulin light chains. kappa [Mass/Vol]Ordered By: Russ Zamora on 11-06-2023 Free [place] Light Chains, Quant 100.3 mg/L High 3.3-19.4 [facility] Immunoglobulin light chains. kappa/Immunoglobulin light chains.lambda (S) [Mass ratio]Ordered By: Russ Zamora on 11-06-2023 Free [place]/Lambda Light Chain Ratio 1.63 0.26-1.65 [facility] Comment on above: Performed at: [facility] [address] [id number] Director: Seb Bertrand PhD, Phone: [phone] Interpretation IEP [Interp]O rdered By: Russ Zamora on 11-06-2023 Immunofixation Screen Comment . [facility] Comment on above: No monoclonality det ected. Interpretation of serum or p lasma protein pattern by immunofixation (narrative resultOrdered By: Russ Zamora on 11-06-2023 Protein Fractions Immunofixation Jose Luis [Interp] Not Observed g/dL Not Observed [facility] Laboratory - Chemistry and C hemistry - challengeOrdered By: Russ Zamora on 11-06-2023 Albumin/Globulin [Mass ratio] 0.6 {ratio} 0.9-2.4 [facility] ALP [Catalytic activity/Vol] 62 U/L 45-117 [facility] ALT [Catalytic activity/Vol] 17 U/L 16-61 [facility] CO2 [Moles/Vol] 24.0 mmol/L 21.0-32.0 [facility] Urea nitrogen/Creatinine [Mass ratio] 21.9 mg/mg 10-20 [facility] Laboratory - Hematology and Cell countsOrdered By: Russ Zamora on 11-06-2023 MCH (RBC) [Entitic mass] 27.5 pg 27.0-32.0 [facility] MCHC (RBC) [Mass/Vol] 31.3 g/dL 32-36 [facility] Nucleated RBC/100 WBC (Bld) [Ratio] 0 % 0-5 [facility] Platelet mean volume (Bld) [Entitic vol] 9.1 fL 6.2-12.0 [facility] Platelets (Bld) [#/Vol] 270 10*3/uL 150-450 [facility] Lambda free light chain kingsley urementOrdered By: Russ Zamora on 11-06-2023 Free [place] Light Chains, Quant 61.5 mg/L High 5.7-26.3 [facility] No Panel InformationOrdered By: Russ Zamora on 11-06-2023 Addendum Document Comment . [facility] Comment on above: Protein electrophore sis scan will follow via computer,mail, or title i paraprofessional delivery. Estimated Creatinine Clearance Calc 31.12 ml/min [facility] Estimated GFR (MDRD) Amer 43 mL/min >60 [facility] Comment on above: GFR Calc Estimated GFR (MDRD) Non-Af Amer 35 mL/min >60 [facility] Comment on above: Non- GFR Calc Protein Fractions Immunofixa tion Jose Luis [Interp]Ordered By: Russ Zamora on 11-06-2023 M-Arash (PILY) Not Observed g/dL Not Observed [facility] RBC Auto (Bld) [#/Vol]Ordere d By: Russ Zamora on 11-06-2023 RBC (Bld) [#/Vol] 4.18 10*6/uL 4.6-6.2 [facility] Reticulocytes Auto (Bld) [#/ Vol]Ordered By: Russ Zamora on 11-06-2023 Reticulocyte Count 2.12 % High 0.5-1.5 [facility] Reticulocytes/100 RBC (Bld) 2.12 % High 0.5-1.5 [facility] Serum albumin/globulin ratio Ordered By: Russ Zamora on 11-06-2023 Albumin/Globulin (PILY) 0.8 0.7-1.7 [facility] Serum [id number] measu rement by electrophoresisOrdered By: Russ Zamora on 11-06-2023 Alpha 1 globulin Elph [Mass/Vol] 0.4 g/dL 0.0-0.4 [facility] Alpha 1 globulin Elph [Mass/Vol] 1.3 g/dL High 0.4-1.0 [facility] Serum globulin measurement ( mass/volume)Ordered By: Russ Zamora on 11-06-2023 Globulin (S) [Mass/Vol] 4.4 g/dL 2.2-3.9 [facility] Serum immunoglobulin kappa l ight chains/immunoglobulin lambda light chains mass ratioOrdered By: Russ Zamora on 11-06-2023 Immunoglobulin light chains.kappa/Immunoglobul in light chains.lambda (S) [Mass ratio] 1.63 0.26-1.65 [facility] Comment on above: Performed at: [place] [id number] Director: Seb Bertrand PhD, Phone: [phone] Serum or plasma IgA measurem ent (mass/volume)Ordered By: Russ Zamora on 11-06-2023 IgA [Mass/Vol] 311 mg/dL 61-437 [facility] Serum or plasma IgG measurem ent (mass/volume)Ordered By: Russ Zamora on 11-06-2023 IgG [Mass/Vol] 1529 mg/dL 603-1613 [facility] Serum or plasma beta globuli n measurement by electrophoresis (mass/volume)Ordered By: Russ Zamora on 11-06-2023 Beta globulin Elph [Mass/Vol] 1.0 g/dL 0.7-1.3 [facility] Serum or plasma calcium kingsley urement (mass/volume)Ordered By: Russ Zamora on 11-06-2023 Calcium [Mass/Vol] 9.0 mg/dL 8.5-10.1 [facility] Serum or plasma creatinine m easurement (mass/volume)Ordered By: Russ Zamora on 11-06-2023 Creatinine [Mass/Vol] 1.96 mg/dL 0.70-1.30 [facility] Comment on above: The validity of the calculated GFR & GFRAA in patients over 70 years has not been determined. Clinical correlation is essential. Serum or plasma gamma globul in measurement by electrophoresis (mass/volume)Ordered By: Russ Zamora on 11-06-2023 Gamma globulin Elph [Mass/Vol] 1.8 g/dL 0.4-1.8 [facility] Serum or plasma immunoelectr ophoresis interpretation (nominal result)Ordered By: Russ Zamora on 11-06-2023 Interpretation IEP [Interp] Comment . [facility] Comment on above: No monoclonality det ected. Serum or plasma immunoglobul in kappa light chains measurement (mass/volume)Ordered By: Russ Walls on 11-06-2023 Immunoglobulin light chains.kappa [Mass/Vol] 100.3 mg/L High 3.3-19.4 [facility] Serum or plasma urea nitroge n measurement (mass/volume)Ordered By: Russ Walls on 11-06-2023 Urea nitrogen [Mass/Vol] 43 mg/dL 7-18 [facility] Serum or plasma uric acid me asurement (mass/volume)Ordered By: [facility] on 11-06-2023 Urate [Mass/Vol] 6.6 mg/dL 3.5-7.2 [facility] Comment on above: The drugs N-Acetylcy steine and Metamizole may falsely depress this assay. Thin prep Papanicolaou smear with manual screeningOrdered By: Russ Zamora on 11-06-2023 Thin prep Papanicolaou smear with manual screening 3.2 g/dL 3.2-5.0 [facility] Thin prep Papanicolaou smear with manual screening 15 U/L 15-37 [facility] Thin prep Papanicolaou smear with manual screening 6 5-15 [facility] Thin prep Papanicolaou smear with manual screening 0.8 0.7-1.7 [facility] Total protein bloodOrdered B y: Russ Zamora on 11-06-2023 Protein [Mass/Vol] 7.6 g/dL 6.0-8.5 [facility] Basophil percentageOrdered B y: Russ Zamora on 10-12-2023 Creatinine [Mass/Vol] 1.5 mg/dL 0.70-1.30 [facility] Laboratory - Chemistry and C hemistry - challengeOrdered By: Russ Zamora on 10-12-2023 GFR/1.73 sq M.predicted among non-blacks MDRD (S/P/Bld) [Vol rate/Area] 49.0000 mL/min/{1.73_m2} >60 [facility] Absolute lymphocyte countOrd ered By: Leslie Arriaga on 07-26-2023 Lymphocytes Auto (Unsp spec) [#/Vol] 1.22 10*3/uL 0.83-4.51 [facility] Assessment of wrist artery p atency prior to arterial punctureOrdered By: Lorie Mart on 07-26-2023 Arterial patency Wrist artery --pre arterial puncture Positive [facility] Base excessOrdered By: Obed Mart on 07-26-2023 Base excess Calc (BldV) [Moles/Vol] -1 mmol/L -2-2 [facility] Basophil percentageOrdered B y: Leslie Arriaga on 07-26-2023 Basophils/100 WBC (Bld) 0.7 % 0-1 [facility] Chloride [Moles/Vol] 105 mmol/L 98-107 [facility] Eosinophils/100 WBC (Bld) 1.7 % 0-5 [facility] Glucose [Mass/Vol] 99 mg/dL 74-106 [facility] Neutrophils (Bld) [#/Vol] 9.0 10*3/uL 2.0-7.7 [facility] Neutrophils/100 WBC (Bld) 76.3 % 47-70 [facility] Potassium [Moles/Vol] 4.8 mmol/L 3.5-5.1 [facility] Sodium [Moles/Vol] 135 mmol/L 136-145 [facility] WBC (Bld) [#/Vol] 11.7 10*3/uL 4.4-11.0 [facility] Basophil percentageOrdered B y: Lorie Mart on 07-26-2023 Basophil percentage 24.8 mmol/L 22-26 [facility] Basophils/100 WBC (Bld) 95 % 95-99 [facility] Blood erythrocytes count (nu mber/volume)Ordered By: Leslie Arriaga on 07-26-2023 RBC (Bld) [#/Vol] 4.50 10*6/uL 4.6-6.2 [facility] Blood hemoglobin measurement (mass/volume)Ordered By: Leslie Arriaga on 07-26-2023 Hemoglobin (Bld) [Mass/Vol] 12.5 g/dL 13.0-16.5 [facility] Blood lymphocytes/100 leukoc ytesOrdered By: Leslie Arriaga on 07-26-2023 Lymphocytes/100 WBC (Bld) 10.4 % 19-41 [facility] Blood monocytes/100 leukocyt esOrdered By: Leslie Arriaga on 07-26-2023 Monocytes/100 WBC (Bld) 10.2 % 0-10 [facility] Blood platelet mean volumeOr dered By: Leslie Arriaga on 07-26-2023 Platelet mean volume (Bld) [Entitic vol] 10.6 fL 6.2-12.0 [facility] CO2 (BldA) [Partial pressure ]Ordered By: Lorie Matr on 07-26-2023 CO2 (Bld) [Partial pressure] 42.6 mm[Hg] 35-45 [facility] Determination of erythrocyte mean corpuscular volume (MCV)Ordered By: Leslie Arriaga on 07-26-2023 MCV (RBC) [Entitic vol] 87.6 fL 80-94 [facility] Hematocrit Auto (Bld) [Volum e fraction]Ordered By: Leslie Arriaga on 07-26-2023 Hematocrit (Bld) [Volume fraction] 39.4 % 40-54 [facility] Laboratory - Chemistry and C hemistry - challengeOrdered By: Leslie Arriaga on 07-26-2023 CO2 [Moles/Vol] 28.0 mmol/L 21.0-32.0 [facility] Natriuretic peptide B (Bld) [Mass/Vol] 233.5 pg/mL 0-100 [facility] Urea nitrogen/Creatinine [Mass ratio] 25.4 mg/mg 10-20 [facility] Laboratory - Hematology and Cell countsOrdered By: Leslie Arriaga on 07-26-2023 Erythrocyte distribution width (RBC) [Entitic vol] 52.0 fL 35.1-43.9 [facility] Erythrocyte distribution width (RBC) [Ratio] 16.3 % 11.6-14.6 [facility] Immature granulocytes/100 WBC (Bld) 0.700 % 0.0-0.9 [facility] Comment on above: IG% - Immature Granu locytes (promyelocytes, myelocytes and metamyelocytes) > 1% indicates that a LEFT SHIFT is Present. MCH (RBC) [Entitic mass] 27.8 pg 27.0-32.0 [facility] Nucleated RBC/100 WBC (Bld) [Ratio] 0 % 0-5 [facility] MCHC Auto (RBC) [Mass/Vol]Or dered By: Leslie Arriaga on 07-26-2023 MCHC (RBC) [Mass/Vol] 31.7 g/dL 32-36 [facility] No Panel InformationOrdered By: Leslie Arriaga on 07-26-2023 Estimated GFR (MDRD) Amer 40 mL/min >60 [facility] Comment on above: GFR Calc Estimated GFR (MDRD) Non-Af Amer 33 mL/min >60 [facility] Comment on above: Non- GFR Calc No Panel InformationOrdered By: Lorie Mart on 07-26-2023 Blood Gas Sample Site R Radial [facility] Blood Gas Specimen Type ART [facility] Blood Gas Total CO2 26 mmol/L [facility] Blood Gas Vent Mode Not entered [facility] Oxygen Delivery Device [id number] [facility] Oxygen (BldA) [Partial press ure]Ordered By: Lorie Mart on 07-26-2023 Oxygen (Bld) [Partial pressure] 77 mmHG 75-100 [facility] Platelets bldOrdered By: Markus Arriaga on 07-26-2023 Platelets (Bld) [#/Vol] 264 10*3/uL 150-450 [facility] Serum or plasma calcium kingsley urement (mass/volume)Ordered By: Leslie Arriaga on 07-26-2023 Calcium [Mass/Vol] 9.3 mg/dL 8.5-10.1 [facility] Serum or plasma creatinine m easurement (mass/volume)Ordered By: Leslie Arriaga on 07-26-2023 Creatinine [Mass/Vol] 2.09 mg/dL 0.70-1.30 [facility] Comment on above: The validity of the calculated GFR & GFRAA in patients over 70 years has not been determined. Clinical correlation is essential. Serum or plasma urea nitroge n measurement (mass/volume)Ordered By: Leslie Arriaga on 07-26-2023 Urea nitrogen [Mass/Vol] 53 mg/dL 7-18 [facility] Thin prep Papanicolaou smear with manual screeningOrdered By: Leslie Arriaga on 07-26-2023 Thin prep Papanicolaou smear with manual screening 2 5-15 [facility] pH measurementOrdered By: Pj Mart on 07-26-2023 pH (Unsp spec) 7.37 [pH] 7.35-7.45 [facility] Anaerobic cultureOrdered By: Joaquim Suárez on 06-22-2023 Bacteria identified Anaer cx Nom (Unsp spec) No anaerobic bacteria isolated. [facility] Bacteria identified Cx Nom ( Wound)Ordered By: Joaquim Suárez on 06-22-2023 Wound Culture Staphylococcus epidermidis [facility] Wound Culture Corynebacterium jeikeium [facility] Fungus cultureOrdered By: Flores Suárez on 06-22-2023 Fungus identified Cx Nom (Unsp spec) [facility] Gram stain for investigation of transfusion reactionOrdered By: Joaquim Suárez on 06-22-2023 Microscopic observation Gram stain Nom (Unsp spec) [facility] Glucose Glucometer (BldC) [M ass/Vol]Ordered By: Joaquim Suárez on 06-08-2023 Glucose [Mass/Vol] 72 mg/dL 74-106 [facility] Comment on above: MANAGEMENT OF PATIEN T CARE PER NURSING PROTOCOL Absolute lymphocyte countOrd ered By: Russ Zamora on 04-17-2023 Lymphocytes Auto (Unsp spec) [#/Vol] 1.02 10*3/uL 0.83-4.51 [facility] Basophil percentageOrdered B y: Russ Zamora on 04-17-2023 Basophils/100 WBC (Bld) 0.5 % 0-1 [facility] Bilirubin [Mass/Vol] 0.30 mg/dL 0.20-1.00 [facility] Comment on above: For patients on eltr ombopag therapy, use of Dimension [place] TBIL is not recommended. Chloride [Moles/Vol] 102 mmol/L 98-107 [facility] Eosinophils/100 WBC (Bld) 2.6 % 0-5 [facility] Glucose [Mass/Vol] 209 mg/dL 74-106 [facility] Comment on above: Glucose result great er than or equal to 200 mg/dLsuggests DIABETES MELLITUS per A.D.A. criteria. LDH [Catalytic activity/Vol] 152 U/L 87-241 [facility] Neutrophils (Bld) [#/Vol] 6.0 10*3/uL 2.0-7.7 [facility] Neutrophils/100 WBC (Bld) 74.2 % 47-70 [facility] Potassium [Moles/Vol] 4.3 mmol/L 3.5-5.1 [facility] Protein [Mass/Vol] 7.8 g/dL 6.4-8.2 [facility] Sodium [Moles/Vol] 136 mmol/L 136-145 [facility] WBC (Bld) [#/Vol] 8.1 10*3/uL 4.4-11.0 [facility] Blood erythrocytes count (nu mber/volume)Ordered By: Russ Zamora on 04-17-2023 RBC (Bld) [#/Vol] 4.45 10*6/uL 4.6-6.2 [facility] Blood hemoglobin measurement (mass/volume)Ordered By: Russ Zamora on 04-17-2023 Hemoglobin (Bld) [Mass/Vol] 12.3 g/dL 13.0-16.5 [facility] Blood lymphocytes/100 leukoc ytesOrdered By: Russ Zamora on 04-17-2023 Lymphocytes/100 WBC (Bld) 12.6 % 19-41 [facility] Blood monocytes/100 leukocyt esOrdered By: Russ Zamora on 04-17-2023 Monocytes/100 WBC (Bld) 9.4 % 0-10 [facility] Blood platelet mean volumeOr dered By: Russ Zamora on 04-17-2023 Platelet mean volume (Bld) [Entitic vol] 9.5 fL 6.2-12.0 [facility] Determination of erythrocyte mean corpuscular volume (MCV)Ordered By: Russ Zamora on 04-17-2023 MCV (RBC) [Entitic vol] 89.9 fL 80-94 [facility] Hematocrit Auto (Bld) [Volum e fraction]Ordered By: Russ Zamora on 04-17-2023 Hematocrit (Bld) [Volume fraction] 40.0 % 40-54 [facility] Laboratory - Chemistry and C hemistry - challengeOrdered By: Russ Zamora on 04-17-2023 ALP [Catalytic activity/Vol] 58 U/L 45-117 [facility] ALT [Catalytic activity/Vol] 21 U/L 16-61 [facility] CO2 [Moles/Vol] 27.0 mmol/L 21.0-32.0 [facility] Globulin (S) [Mass/Vol] 4.5 g/dL 2.2-4.2 [facility] Urea nitrogen/Creatinine [Mass ratio] 20.3 mg/mg 10-20 [facility] Laboratory - Hematology and Cell countsOrdered By: Russ Zamora on 04-17-2023 Erythrocyte distribution width (RBC) [Entitic vol] 54.4 fL 35.1-43.9 [facility] Erythrocyte distribution width (RBC) [Ratio] 16.5 % 11.6-14.6 [facility] Immature granulocytes/100 WBC (Bld) 0.700 % 0.0-0.9 [facility] Comment on above: IG% - Immature Granu locytes (promyelocytes, myelocytes and metamyelocytes) > 1% indicates that a LEFT SHIFT is Present. MCH (RBC) [Entitic mass] 27.6 pg 27.0-32.0 [facility] Nucleated RBC/100 WBC (Bld) [Ratio] 0 % 0-5 [facility] MCHC Auto (RBC) [Mass/Vol]Or dered By: Russ Zamora on 04-17-2023 MCHC (RBC) [Mass/Vol] 30.8 g/dL 32-36 [facility] No Panel InformationOrdered By: Russ Zamora on 04-17-2023 Estimated Creatinine Clearance Calc 29.38 ml/min [facility] Estimated GFR (MDRD) Amer 45 mL/min >60 [facility] Comment on above: GFR Calc Estimated GFR (MDRD) Non-Af Amer 37 mL/min >60 [facility] Comment on above: Non- GFR Calc Platelets bldOrdered By: Frantz Zamora on 04-17-2023 Platelets (Bld) [#/Vol] 214 10*3/uL 150-450 [facility] Serum or plasma albumin kingsley urement (mass/volume)Ordered By: Russ Zamora on 04-17-2023 Albumin [Mass/Vol] 3.3 g/dL 3.2-5.0 [facility] Serum or plasma albumin/glob ulin mass ratioOrdered By: Russ Zamora on 04-17-2023 Albumin/Globulin [Mass ratio] 0.7 {ratio} 0.9-2.4 [facility] Serum or plasma calcium kingsley urement (mass/volume)Ordered By: Russ Zamora on 04-17-2023 Calcium [Mass/Vol] 9.1 mg/dL 8.5-10.1 [facility] Serum or plasma creatinine m easurement (mass/volume)Ordered By: Russ Zamora on 04-17-2023 Creatinine [Mass/Vol] 1.87 mg/dL 0.70-1.30 [facility] Comment on above: The validity of the calculated GFR & GFRAA in patients over 70 years has not been determined. Clinical correlation is essential. Serum or plasma urea nitroge n measurement (mass/volume)Ordered By: Russ Zamora on 04-17-2023 Urea nitrogen [Mass/Vol] 38 mg/dL 7-18 [facility] Thin prep Papanicolaou smear with manual screeningOrdered By: Russ Zamora on 04-17-2023 Thin prep Papanicolaou smear with manual screening 16 U/L 15-37 [facility] Thin prep Papanicolaou smear with manual screening 7 5-15 [facility] Basophil percentageOrdered B y: Russ Zamora on 04-10-2023 Creatinine [Mass/Vol] 1.1 mg/dL 0.70-1.30 [facility] No Panel InformationOrdered By: Russ Zamora on 04-10-2023 Bedside Estimated GFR (eGFR) > 60.0000 mL/min >60 [facility] Anaerobic cultureOrdered By: Bonny Glynn on 01-13-2023 Bacteria identified Anaer cx Nom (Unsp spec) No anaerobic bacteria isolated. [facility] Bacteria identified Cx Nom ( Wound)Ordered By: Bonny Glynn on 01-11-2023 Wound Culture Staphylococcus pseudintermediu [facility] Gram stain for investigation of transfusion reactionOrdered By: Bonny Glynn on 01-09-2023 Microscopic observation Gram stain Nom (Unsp spec) [facility] Anaerobic cultureOrdered By: Bonny Glynn on 01-08-2023 Bacteria identified Anaer cx Nom (Unsp spec) No anaerobic bacteria isolated. [facility] Bacteria identified Cx Nom ( Wound)Ordered By: Bonny Glynn on 01-08-2023 Wound Culture Staphylococcus pseudintermediu [facility] Gram stain for investigation of transfusion reactionOrdered By: Bonny Glynn on 01-08-2023 Microscopic observation Gram stain Nom (Unsp spec) [facility] Laboratory - Microbiology an d Antimicrobial susceptibilityOrdered By: Dr. Ochoa on 01-05-2023 Bacteria identified Cx Nom (Bld) No growth in 5 days. [facility] Culture, urineOrdered By: Dr Marianna Ochoa on 01-02-2023 Bacteria identified Cx Nom (U) Culture exhibits no growth. [facility] Influenza virus A and B and SARS-CoV-2 (COVID-19) Ag panel - Upper respiratory specimOrdered By: Dr. Ochoa on 12-31-2022 SARS-CoV-2 & FLU Antigen (Rapid) Influenzae A [facility] Absolute lymphocyte countOrd ered By: Dr. Ochoa on 12-30-2022 Lymphocytes Auto (Unsp spec) [#/Vol] 0.68 10*3/uL 0.83-4.51 [facility] Basophil percentageOrdered B y: Dr. Ochoa on 12-30-2022 Basophil percentage 0-5 SEEN /hpf 0-5 [facility] Basophils/100 WBC (Bld) 0.5 % 0-1 [facility] Bilirubin [Mass/Vol] 0.50 mg/dL 0.20-1.00 [facility] Comment on above: For patients on eltr ombopag therapy, use of Dimension [place] TBIL is not recommended. Chloride [Moles/Vol] 102 mmol/L 98-107 [facility] Eosinophils/100 WBC (Bld) 0.2 % 0-5 [facility] Glucose [Mass/Vol] 119 mg/dL 74-106 [facility] Comment on above: Fasting Glucose resu lt from 100 to 125 mg/dL suggests IMPAIRED HOMEOSTASIS per A.D.A. criteria. Lactate [Moles/Vol] 1.4 mmol/L 0.4-2.0 [facility] Neutrophils (Bld) [#/Vol] 8.8 10*3/uL 2.0-7.7 [facility] Neutrophils/100 WBC (Bld) 83.3 % 47-70 [facility] Potassium [Moles/Vol] 5.2 mmol/L 3.5-5.1 [facility] Protein [Mass/Vol] 8.2 g/dL 6.4-8.2 [facility] Sodium [Moles/Vol] 134 mmol/L 136-145 [facility] WBC (Bld) [#/Vol] 10.6 10*3/uL 4.4-11.0 [facility] Bilirubin Test strip Ql (U)O rdered By: Dr. Ochoa on 12-30-2022 Bilirubin Ql (U) Negative Negative [facility] Blood erythrocytes count (nu mber/volume)Ordered By: Dr. Ochoa on 12-30-2022 RBC (Bld) [#/Vol] 4.36 10*6/uL 4.6-6.2 [facility] Blood hemoglobin measurement (mass/volume)Ordered By: Dr. Ochoa on 12-30-2022 Hemoglobin (Bld) [Mass/Vol] 12.1 g/dL 13.0-16.5 [facility] Blood lymphocytes/100 leukoc ytesOrdered By: Dr. Ochoa on 12-30-2022 Lymphocytes/100 WBC (Bld) 6.4 % 19-41 [facility] Blood monocytes/100 leukocyt esOrdered By: Dr. Ochoa on 12-30-2022 Monocytes/100 WBC (Bld) 9.1 % 0-10 [facility] Blood platelet mean volumeOr dered By: Dr. Ochoa on 12-30-2022 Platelet mean volume (Bld) [Entitic vol] 10.2 fL 6.2-12.0 [facility] Culture, urineOrdered By: Chino Ochoa on 12-30-2022 Bacteria identified Cx Nom (U) Culture exhibits no growth. [facility] Determination of erythrocyte mean corpuscular volume (MCV)Ordered By: Dr. Ochoa on 12-30-2022 MCV (RBC) [Entitic vol] 87.2 fL 80-94 [facility] Hematocrit Auto (Bld) [Volum e fraction]Ordered By: Dr. Ochoa on 12-30-2022 Hematocrit (Bld) [Volume fraction] 38.0 % 40-54 [facility] INR in Blood by Coagulation assayOrdered By: Dr. Ochoa on 12-30-2022 INR Coag (Bld) [Relative time] 1.3 {INR} [facility] Influenza virus A and B and SARS-CoV-2 (COVID-19) Ag panel - Upper respiratory specimOrdered By: Chris Ochoa on 12-30-2022 SARS-CoV-2 & FLU Antigen (Rapid) Influenzae A [facility] Ketones Test strip Ql (U)Ord ered By: Dr. Ochoa on 12-30-2022 Ketones Ql (U) Negative Negative [facility] Laboratory - Chemistry and C hemistry - challengeOrdered By: Dr. Ochoa on 12-30-2022 ALP [Catalytic activity/Vol] 53 U/L 45-117 [facility] ALT [Catalytic activity/Vol] 22 U/L 16-61 [facility] CO2 [Moles/Vol] 25.0 mmol/L 21.0-32.0 [facility] Globulin (S) [Mass/Vol] 4.7 g/dL 2.2-4.2 [facility] Urea nitrogen/Creatinine [Mass ratio] 22.0 mg/mg 10-20 [facility] Laboratory - CoagulationOrde red By: Dr. Ochoa on 12-30-2022 aPTT Coag (Bld) [Time] 38.9 s 24.1-36.2 [facility] PT Coag (PPP) [Time] 15.8 s 11.7-14.9 [facility] Laboratory - Hematology and Cell countsOrdered By: Dr. Ochoa on 12-30-2022 Erythrocyte distribution width (RBC) [Entitic vol] 50.5 fL 35.1-43.9 [facility] Erythrocyte distribution width (RBC) [Ratio] 15.9 % 11.6-14.6 [facility] Immature granulocytes/100 WBC (Bld) 0.500 % 0.0-0.9 [facility] Comment on above: IG% - Immature Granu locytes (promyelocytes, myelocytes and metamyelocytes) > 1% indicates that a LEFT SHIFT is Present. MCH (RBC) [Entitic mass] 27.8 pg 27.0-32.0 [facility] Nucleated RBC/100 WBC (Bld) [Ratio] 0 % 0-5 [facility] Laboratory - Microbiology an d Antimicrobial susceptibilityOrdered By: Chris Ochoa on 12-30-2022 Bacteria identified Cx Nom (Bld) No growth in 5 days. [facility] MCHC Auto (RBC) [Mass/Vol]Or dered By: Dr. Ochoa on 12-30-2022 MCHC (RBC) [Mass/Vol] 31.8 g/dL 32-36 [facility] Mucus LM Ql (Urine sed)Order ed By: Dr. Ochoa on 12-30-2022 Mucus Ql (Urine sed) 0 SEEN /hpf [facility] Nitrite Test strip Ql (U)Ord ered By: Dr. Ochoa on 12-30-2022 Nitrite Ql (U) Negative Negative [facility] No Panel InformationOrdered By: Dr. Ochoa on 12-30-2022 Estimated Creatinine Clearance Calc 27.91 ml/min [facility] Estimated GFR (MDRD) Amer 42 mL/min >60 [facility] Comment on above: GFR Calc Estimated GFR (MDRD) Non-Af Amer 35 mL/min >60 [facility] Comment on above: Non- GFR Calc Platelets bldOrdered By: Dr. Ochoa on 12-30-2022 Platelets (Bld) [#/Vol] 210 10*3/uL 150-450 [facility] Protein Test strip Ql (U)Ord ered By: Dr. Ochoa on 12-30-2022 Protein Ql (U) 100 mg/dl Negative [facility] Serum or plasma albumin [place] urement (mass/volume)Ordered By: Dr. Ochoa on 12-30-2022 Albumin [Mass/Vol] 3.5 g/dL 3.2-5.0 [facility] Serum or plasma albumin/glob ulin mass ratioOrdered By: Dr. Ochoa on 12-30-2022 Albumin/Globulin [Mass ratio] 0.7 {ratio} 0.9-2.4 [facility] Serum or plasma calcium [place] urement (mass/volume)Ordered By: Dr. Ochoa on 12-30-2022 Calcium [Mass/Vol] 9.2 mg/dL 8.5-10.1 [facility] Serum or plasma creatinine m easurement (mass/volume)Ordered By: Dr. Ochoa on 12-30-2022 Creatinine [Mass/Vol] 2.00 mg/dL 0.70-1.30 [facility] Comment on above: The validity of the calculated GFR & GFRAA in patients over 70 years has not been determined. Clinical correlation is essential. Serum or plasma urea nitroge n measurement (mass/volume)Ordered By: Dr. Ochoa on 12-30-2022 Urea nitrogen [Mass/Vol] 44 mg/dL 7-18 [facility] Squamous epithelial cells de tection in urine sediment by light microscopyOrdered By: Dr. Ochoa on 12-30-2022 Epithelial cells.squamous LM Ql (Urine sed) 0 SEEN /hpf 0-5 [facility] Thin prep Papanicolaou smear with manual screeningOrdered By: Dr. Ochoa on 12-30-2022 Thin prep Papanicolaou smear with manual screening 22 U/L 15-37 [facility] Thin prep Papanicolaou smear with manual screening 7 5-15 [facility] Urine blood detectionOrdered By: Dr. Ochoa on 12-30-2022 RBC Ql (U) 25 /ul Negative [facility] RBC Ql (U) 0 SEEN /hpf 0-5 [facility] Urine clarityOrdered By: Dr. Ochoa on 12-30-2022 Clarity (U) Clear Clear [facility] Urine color determinationOrd ered By: Dr. Ochoa on 12-30-2022 Color (U) Yellow Yellow [facility] Urine glucose detectionOrder ed By: Dr. Ochoa on 12-30-2022 Glucose Ql (U) Normal mg/dl Normal [facility] Urine leukocyte esterase det ection by dipstickOrdered By: Dr. Ochoa on 12-30-2022 Leukocyte esterase Test strip Ql (U) 25 /ul Negative [facility] Urine pHOrdered By: Dr. Amy chowdhury on 12-30-2022 pH (U) 7.0 [pH] 5.0 - 8.0 [facility] Urine sediment bacteria coun t by microscopy (number/high power field)Ordered By: Dr. Ochoa on 12-30-2022 Bacteria LM.HPF (Urine sed) [#/Area] 0 /[HPF] None Seen [facility] Urine specific gravity measu rementOrdered By: Dr. Ochoa on 12-30-2022 Specific gravity (U) [Rel density] 1.005 1.002-1.030 [facility] Urobilinogen Auto test strip Ql (U)Ordered By: Dr. Ochoa on 12-30-2022 Urobilinogen Ql (U) Normal mg/dl Normal [facility] Absolute lymphocyte countOrd ered By: Dr. Zamora on 10-16-2022 Lymphocytes Auto (Unsp spec) [#/Vol] 1.25 10*3/uL 0.83-4.51 [facility] Basophil percentageOrdered B y: Dr. Zamora on 10-16-2022 Basophils/100 WBC (Bld) 0.6 % 0-1 [facility] Bilirubin [Mass/Vol] 0.30 mg/dL 0.20-1.00 [facility] Comment on above: For patients on eltr ombopag therapy, use of Dimension [place] TBIL is not recommended. Chloride [Moles/Vol] 106 mmol/L 98-107 [facility] Eosinophils/100 WBC (Bld) 1.4 % 0-5 [facility] Glucose [Mass/Vol] 225 mg/dL 74-106 [facility] Comment on above: Glucose result great er than or equal to 200 mg/dLsuggests DIABETES MELLITUS per A.D.A. criteria. LDH [Catalytic activity/Vol] 135 U/L 87-241 [facility] Neutrophils (Bld) [#/Vol] 5.1 10*3/uL 2.0-7.7 [facility] Neutrophils/100 WBC (Bld) 70.2 % 47-70 [facility] Potassium [Moles/Vol] 4.5 mmol/L 3.5-5.1 [facility] Protein [Mass/Vol] 7.8 g/dL 6.4-8.2 [facility] Sodium [Moles/Vol] 139 mmol/L 136-145 [facility] WBC (Bld) [#/Vol] 7.3 10*3/uL 4.4-11.0 [facility] Blood erythrocytes count (nu mber/volume)Ordered By: Dr. Zamora on 10-16-2022 RBC (Bld) [#/Vol] 3.94 10*6/uL 4.6-6.2 [facility] Blood hemoglobin measurement (mass/volume)Ordered By: Dr. Zamora on 10-16-2022 Hemoglobin (Bld) [Mass/Vol] 11.5 g/dL 13.0-16.5 [facility] Blood lymphocytes/100 leukoc ytesOrdered By: Dr. Zamora on 10-16-2022 Lymphocytes/100 WBC (Bld) 17.2 % 19-41 [facility] Blood monocytes/100 leukocyt esOrdered By: Dr. Zamora on 10-16-2022 Monocytes/100 WBC (Bld) 9.8 % 0-10 [facility] Blood platelet mean volumeOr dered By: Dr. Zamora on 10-16-2022 Platelet mean volume (Bld) [Entitic vol] 9.9 fL 6.2-12.0 [facility] Determination of erythrocyte mean corpuscular volume (MCV)Ordered By: Dr. Zamora on 10-16-2022 MCV (RBC) [Entitic vol] 91.1 fL 80-94 [facility] Hematocrit Auto (Bld) [Volum e fraction]Ordered By: Dr. Zamora on 10-16-2022 Hematocrit (Bld) [Volume fraction] 35.9 % 40-54 [facility] Laboratory - Chemistry and C hemistry - challengeOrdered By: Dr. Zamora on 10-16-2022 ALP [Catalytic activity/Vol] 52 U/L 45-117 [facility] ALT [Catalytic activity/Vol] 19 U/L 16-61 [facility] CO2 [Moles/Vol] 26.0 mmol/L 21.0-32.0 [facility] Globulin (S) [Mass/Vol] 4.5 g/dL 2.2-4.2 [facility] Urea nitrogen/Creatinine [Mass ratio] 17.5 mg/mg 10-20 [facility] Laboratory - Hematology and Cell countsOrdered By: Dr. Zamora on 10-16-2022 Erythrocyte distribution width (RBC) [Entitic vol] 50.4 fL 35.1-43.9 [facility] Erythrocyte distribution width (RBC) [Ratio] 15.2 % 11.6-14.6 [facility] Immature granulocytes/100 WBC (Bld) 0.800 % 0.0-0.9 [facility] Comment on above: IG% - Immature Granu locytes (promyelocytes, myelocytes and metamyelocytes) > 1% indicates that a LEFT SHIFT is Present. MCH (RBC) [Entitic mass] 29.2 pg 27.0-32.0 [facility] Nucleated RBC/100 WBC (Bld) [Ratio] 0 % 0-5 [facility] MCHC Auto (RBC) [Mass/Vol]Or dered By: Dr. Zamora on 10-16-2022 MCHC (RBC) [Mass/Vol] 32.0 g/dL 32-36 [facility] No Panel InformationOrdered By: Dr. Zamora on 10-16-2022 Estimated GFR (MDRD) Amer 45 mL/min >60 [facility] Comment on above: GFR Calc Estimated GFR (MDRD) Non-Af Amer 37 mL/min >60 [facility] Comment on above: Non- GFR Calc Platelets bldOrdered By: Dr. Zamora on 10-16-2022 Platelets (Bld) [#/Vol] 193 10*3/uL 150-450 [facility] Serum or plasma albumin [place] urement (mass/volume)Ordered By: Dr. Zamora on 10-16-2022 Albumin [Mass/Vol] 3.3 g/dL 3.2-5.0 [facility] Serum or plasma albumin/glob ulin mass ratioOrdered By: Dr. Zamora on 10-16-2022 Albumin/Globulin [Mass ratio] 0.7 {ratio} 0.9-2.4 [facility] Serum or plasma calcium [place] urement (mass/volume)Ordered By: Dr. Zamora on 10-16-2022 Calcium [Mass/Vol] 9.3 mg/dL 8.5-10.1 [facility] Serum or plasma creatinine m easurement (mass/volume)Ordered By: Dr. Zamora on 10-16-2022 Creatinine [Mass/Vol] 1.89 mg/dL 0.70-1.30 [facility] Comment on above: The validity of the calculated GFR & GFRAA in patients over 70 years has not been determined. Clinical correlation is essential. Serum or plasma urea nitroge n measurement (mass/volume)Ordered By: Dr. Zamora on 10-16-2022 Urea nitrogen [Mass/Vol] 33 mg/dL 7-18 [facility] Thin prep Papanicolaou smear with manual screeningOrdered By: Dr. Zamora on 10-16-2022 Thin prep Papanicolaou smear with manual screening 17 U/L 15-37 [facility] Thin prep Papanicolaou smear with manual screening 7 5-15 [facility] Basophil percentageOrdered B y: Dr. Zamora on 10-09-2022 Creatinine [Mass/Vol] 1.4 mg/dL 0.70-1.30 [facility] Laboratory - Chemistry and C hemistry - challengeOrdered By: Dr. Zamora on 10-09-2022 GFR/1.73 sq M.predicted among non-blacks MDRD (S/P/Bld) [Vol rate/Area] 52.0000 mL/min/{1.73_m2} >60 [facility] Culture, urineOrdered By: St gillian Glynn on 10-04-2022 Bacteria identified Cx Nom (U) Staphylococcus epidermidis [facility] Bacteria identified Cx Nom (U) GNR lactose hooker up [facility] Bilirubin Test strip Ql (U)O rdered By: Bonny Glynn on 10-02-2022 Bilirubin Ql (U) Negative Negative [facility] Ketones Test strip Ql (U)Ord ered By: Bonny Glynn on 10-02-2022 Ketones Ql (U) Negative Negative [facility] Nitrite Test strip Ql (U)Ord ered By: Bonny Glynn on 10-02-2022 Nitrite Ql (U) Positive Negative [facility] Protein Test strip Ql (U)Ord ered By: Bonny Glynn on 10-02-2022 Protein Ql (U) 100 mg/dl Negative [facility] Urine blood detectionOrdered By: Bonny Glynn on 10-02-2022 RBC Ql (U) 25 /ul Negative [facility] Urine clarityOrdered By: Ysabel Glynn on 10-02-2022 Clarity (U) Cloudy Clear [facility] Urine color determinationOrd ered By: Bonny Glynn on 10-02-2022 Color (U) Yellow Yellow [facility] Urine glucose detectionOrder ed By: Bonny Glynn on 10-02-2022 Glucose Ql (U) 50 mg/dl Normal [facility] Urine leukocyte esterase det ection by dipstickOrdered By: Bonny Glynn on 10-02-2022 Leukocyte esterase Test strip Ql (U) 500 /ul Negative [facility] Urine pHOrdered By: Bonny orosco on 10-02-2022 pH (U) 6.0 [pH] 5.0 - 8.0 [facility] Urine specific gravity measu rementOrdered By: Bonny Glynn on 10-02-2022 Specific gravity (U) [Rel density] 1.010 1.002-1.030 [facility] Urobilinogen Auto test strip Ql (U)Ordered By: Bonny Glynn on 10-02-2022 Urobilinogen Ql (U) Normal mg/dl Normal [facility] PEDRO HILLMAN ([id number]) 1945 M Date Time Provider Department 07/28/22 JESSIE RODRIGUEZ [facility] During your visit today, we recorded the following information about you: Jessie Rodriguez APRN.TECHNICAL INFORMATION SPECIALIST 07/28/2022 1:45 PM Signed In reviewing patient's [...] Status:Closed by JESSIE RODRIGUEZ on 08/09/22 Normal [facility] Anaerobic cultureOrdered By: Bonny Glynn on 07-21-2022 Bacteria identified Anaer cx Nom (Unsp spec) No anaerobic bacteria isolated. [facility] Bacteria identified Cx Nom ( Wound)Ordered By: Bonny Glynn on 07-20-2022 Wound Culture Staphylococcus pseudintermediu [facility] Gram stain for investigation of transfusion reactionOrdered By: Bonny Glynn on 07-19-2022 Microscopic observation Gram stain Nom (Unsp spec) [facility] No Panel InformationOrdered By: Dr. Choi on 06-01-2022 Estimated GFR (MDRD) Amer 63 mL/min >60 [facility] Comment on above: GFR Calc Estimated GFR (MDRD) Non-Af Amer 52 mL/min >60 [facility] Comment on above: Non- GFR Calc Serum or plasma creatinine m easurement (mass/volume)Ordered By: Dr. Choi on 06-01-2022 Creatinine [Mass/Vol] 1.40 mg/dL 0.70-1.30 [facility] Comment on above: The validity of the calculated GFR & GFRAA in patients over 70 years has not been determined. Clinical correlation is essential. Basophil percentageon 2021 Basophil percentage < 0.9 mg/dL 0.70-1.30 [facility] Work Phone: No Panel Informationon 05-22 Bedside Estimated GFR (eGFR) > 60.0000 mL/min >60 [facility] Work Phone: Absolute lymphocyte counton 04-14-2022 Lymphocytes Auto (Unsp spec) [#/Vol] 0.64 10*3/uL 0.83-4.51 [facility] Work Phone: Basophil percentageon 2021 Basophil percentage 0 SEEN /hpf 0-5 [facility] Work Phone: Basophils/100 WBC (Bld) 0.3 % 0-1 [facility] Work Phone: Bilirubin [Mass/Vol] 0.50 mg/dL 0.20-1.00 [facility] Work Phone: [phone] Comment on above: For patients on eltr ombopag therapy, use of Dimension [place] TBIL is not recommended. Chloride [Moles/Vol] 103 mmol/L 98-107 [facility] Work Phone: Eosinophils/100 WBC (Bld) 0.5 % 0-5 [facility] Work Phone: Glucose [Mass/Vol] 46 mg/dL 74-106 [facility] Work Phone: Comment on above: Glucose result less than 50 mg/dL suggests HYPOGLYCEMIA. Neutrophils (Bld) [#/Vol] 5.0 10*3/uL 2.0-7.7 [facility] Work Phone: Neutrophils/100 WBC (Bld) 76.1 % 47-70 [facility] Work Phone: Potassium [Moles/Vol] 4.2 mmol/L 3.5-[facility]: [phone] Protein [Mass/Vol] 8.2 g/dL 6.4-8.2 [facility] Work Phone: Sodium [Moles/Vol] 136 mmol/L 136-145 [facility] Work Phone: WBC (Bld) [#/Vol] 6.6 10*3/uL 4.4-11.0 [facility] Work Phone: Bilirubin Test strip Ql (U)o n 04-14-2022 Bilirubin Ql (U) Negative Negative [facility] Work Phone: Blood erythrocytes count (nu mber/volume)on 04-14-2022 RBC (Bld) [#/Vol] 5.00 10*6/uL 4.6-6.2 [facility] Work Phone: Blood hemoglobin measurement (mass/volume)on 04-14-2022 Hemoglobin (Bld) [Mass/Vol] 13.9 g/dL 13.0-16.5 [facility] Work Phone: Blood lymphocytes/100 leukoc yteson 04-14-2022 Lymphocytes/100 WBC (Bld) 9.7 % 19-41 [facility] Work Phone: Blood monocytes/100 leukocyt eson 04-14-2022 Monocytes/100 WBC (Bld) 12.3 % 0-10 [facility] Work Phone: Blood platelet mean volumeon 04-14-2022 Platelet mean volume (Bld) [Entitic vol] 10.5 fL 6.2-12.0 [facility] Work Phone: Determination of erythrocyte mean corpuscular volume (MCV)on 04-14-2022 MCV (RBC) [Entitic vol] 86.4 fL 80-94 [facility] Work Phone: Glucose Glucometer (BldC) [M ass/Vol]on 04-14-2022 Glucose [Mass/Vol] 113 mg/dL 74-106 [facility] Work Phone: Comment on above: MANAGEMENT OF PATIEN T CARE PER NURSING PROTOCOL Hematocrit Auto (Bld) [Volum e fraction]on 04-14-2022 Hematocrit (Bld) [Volume fraction] 43.2 % 40-54 [facility] Work Phone: INR in Blood by Coagulation assayon 04-14-2022 INR Coag (Bld) [Relative time] 1.1 {INR} [facility] Work Phone: Ketones Test strip Ql (U)on 04-14-2022 Ketones Ql (U) 5 mg/dl Negative [facility] Work Phone: Laboratory - Chemistry and C hemistry - challengeon 04-14-2022 ALP [Catalytic activity/Vol] 63 U/L 45-117 [facility] Work Phone: ALT [Catalytic activity/Vol] 29 U/L 16-61 [facility] Work Phone: CO2 [Moles/Vol] 25.0 mmol/L 21.0-32.0 [facility] Work Phone: Globulin (S) [Mass/Vol] 5.1 g/dL 2.2-4.2 [facility] Work Phone: Urea nitrogen/Creatinine [Mass ratio] 37.6 mg/mg 10-20 [facility] Work Phone: Laboratory - Coagulationon 0 04-14-2022 PT Coag (PPP) [Time] 14.0 s 11.7-14.9 [facility] Work Phone: Laboratory - Hematology and Cell countson 04-14-2022 Erythrocyte distribution width (RBC) [Entitic vol] 49.0 fL 35.1-43.9 [facility] Work Phone: Erythrocyte distribution width (RBC) [Ratio] 15.4 % 11.6-14.6 [facility] Work Phone: Immature granulocytes/100 WBC (Bld) 1.100 % 0.0-0.9 [facility] Work Phone: Comment on above: IG% - Immature Granu locytes (promyelocytes, myelocytes and metamyelocytes) > 1% indicates that a LEFT SHIFT is Present. MCH (RBC) [Entitic mass] 27.8 pg 27.0-32.0 [facility] Work Phone: Nucleated RBC/100 WBC (Bld) [Ratio] 0 % 0-5 [facility] Work Phone: MCHC Auto (RBC) [Mass/Vol]on 04-14-2022 MCHC (RBC) [Mass/Vol] 32.2 g/dL 32-36 [facility] Work Phone: Mucus LM Ql (Urine sed)on Mucus Ql (Urine sed) 0 SEEN /hpf [facility] Work Phone: Nitrite Test strip Ql (U)on 04-14-2022 Nitrite Ql (U) Negative Negative [facility] Work Phone: No Panel Informationon 04-14 Estimated Creatinine Clearance Calc 35.56 ml/min [facility] Work Phone: Estimated GFR (MDRD) Amer 55 mL/min >60 [facility] Work Phone: Comment on above: GFR Calc Estimated GFR (MDRD) Non-Af Amer 46 mL/min >60 [facility] Work Phone: Comment on above: Non- GFR Calc Platelets bldon 04-14-2022 Platelets (Bld) [#/Vol] 293 10*3/uL 150-450 [facility] Work Phone: Platelets (Bld) [#/Vol] 287 10*3/uL 150-450 [facility] Work Phone: Protein Test strip Ql (U)on 04-14-2022 Protein Ql (U) 30 mg/dl Negative [facility] Work Phone: Serum or plasma albumin [place] urement (mass/volume)on 04-14-2022 Albumin [Mass/Vol] 3.1 g/dL 3.2-5.0 [facility] Work Phone: Serum or plasma albumin/glob ulin mass ratioon 04-14-2022 Albumin/Globulin [Mass ratio] 0.6 {ratio} 0.9-2.4 [facility] Work Phone: Serum or plasma calcium kingsley urement (mass/volume)on 04-14-2022 Calcium [Mass/Vol] 9.9 mg/dL 8.5-10.1 [facility] Work Phone: Serum or plasma creatinine m easurement (mass/volume)on 04-14-2022 Creatinine [Mass/Vol] 1.57 mg/dL 0.70-1.30 [facility] Work Phone: Comment on above: The validity of the calculated GFR & GFRAA in patients over 70 years has not been determined. Clinical correlation is essential. Serum or plasma urea nitroge n measurement (mass/volume)on 04-14-2022 Urea nitrogen [Mass/Vol] 59 mg/dL 7-18 [facility] Work Phone: Squamous epithelial cells de tection in urine sediment by light microscopyon 04-14-2022 Epithelial cells.squamous LM Ql (Urine sed) 0-5 SEEN /hpf 0-5 [facility] Work Phone: Thin prep Papanicolaou smear with manual screeningon 04-14-2022 Thin prep Papanicolaou smear with manual screening 30 U/L 15-37 [facility] Work Phone: Thin prep Papanicolaou smear with manual screening 8 5-15 [facility] Work Phone: Urine blood detectionon 03-21 RBC Ql (U) Negative Negative [facility] Work Phone: RBC Ql (U) 0 SEEN /hpf 0-5 [facility] Work Phone: Urine clarityon 04-14-2022 Clarity (U) Clear Clear [facility] Work Phone: Urine color determinationon 04-14-2022 Color (U) Yellow Yellow [facility] Work Phone: Urine glucose detectionon Glucose Ql (U) Normal mg/dl Normal [facility] Work Phone: Urine leukocyte esterase det ection by dipstickon 04-14-2022 Leukocyte esterase Test strip Ql (U) 25 /ul Negative [facility] Work Phone: Urine pHon 04-14-2022 pH (U) 6.0 [pH] 5.0 - 8.0 [facility] Work Phone: Urine sediment bacteria coun t by microscopy (number/high power field)on 04-14-2022 Bacteria LM.HPF (Urine sed) [#/Area] 0 /[HPF] None Seen [facility] Work Phone: Urine specific gravity measu rementon 04-14-2022 Specific gravity (U) [Rel density] 1.010 1.002-1.030 [facility] Work Phone: Urobilinogen Auto test strip Ql (U)on 04-14-2022 Urobilinogen Ql (U) Normal mg/dl Normal [facility] Work Phone: Basophil percentageon 2021 Creatinine [Mass/Vol] 1.4 mg/dL 0.70-1.30 [facility] Work Phone: Laboratory - Chemistry and C hemistry - challengeon 04-12-2022 GFR/1.73 sq M.predicted among non-blacks MDRD (S/P/Bld) [Vol rate/Area] 50.0000 mL/min/{1.73_m2} >60 [facility] Work Phone: Adriana 04-06-2022 CNPN Telephone ([facility]) KADYPEDRO Melendez ([id number]) 1945 M Date Time Provider Department 04/06/22 [...] Signed Still unable to reach patient and personalized living manager is spouse with same number.Sigrid Mock 04/07/2022 5:49 PM Signed Unable to reach patient. Mailbox full/Mailbox not set up/ Number incorrect. Please try again later. Ashley Ramirez Allie 04/08/2022 9:23 AM Signed left message on machine to give call back, different number from pharmacy. [phone]. Ashley Ramirez Allie 04/08/2022 2:56 PM Signed [...] Status:Closed by ASHLEY MOCK on 04/08/22 Normal [facility] Bacteria Ur Culton 2 Bacteria identified Cx Nom (U) [id number] Abnormal [facility] Comment on above: Order Comment: Speci men Type: URINE SPECIMEN Ordering Facility: [facility] Address: [address] [place] [address] Result Comment: >=10 0,000 CFU/ml Streptococcus mitis-oralis group No further workup Performed By: #### 6 30-4 #### [facility] CLIA [id number] [address] [place], [place] [address] [address] [place] CNOVon 04-05-2022 CNOV Office Visit ([facility]) PEDRO HILLMAN ([id number]) 1945 M Date Time Provider Department 04/05/22 1:15 PM JESSIE RODRIGUEZ [facility] During your visit today, we recorded the following information about you: Temperature Pulse Respiration Blood pressure 101.6 degrees 76/minute 16/minute 122/76 Weight 87.1 kg Jessie Rodriguez APRN.TECHNICAL INFORMATION SPECIALIST 04/05/2022 3:51 PM Signed Subjective HPI Pedro [...] up a (more content not included)... [facility] ([facility]) PEDRO HILLMAN ([id number]) 1945 M Date Time Provider Department 04/05/22 JESSIE RODRIGUEZ [facility] During your visit today, we recorded the following information about you: Jessie Rodriguez APRN.CNP 04/05/2022 2:59 PM Signed Radiology report faxed to patient's PCP Dr. Tonio Fajardo at [phone]. Confirmation of fax received. Patient was advised [...] Status:Closed by JESSIE RODRIGUEZ on 04/05/22 Normal [facility] No Panel InformationOrdered By: Ccf Provider on 04-05-2022 Radiology Result ACTIONABLE Abnormal [facility] Comment on above: This report contains an [...] (POC)on 2021 BILIRUBIN UA (POCT) Negative Negative [facility] CLARITY UA (POCT) Cloudy [facility] COLOR UA (POCT) Dark yellow [facility] GLUCOSE UA (POCT) Negative Negative mg/dL [facility] HEMOGLOBIN/BLOOD UA (POCT) Small Abnormal Negative [facility] KETONE UA (POCT) Negative Negative mg/dL [facility] LEUKOCYTES UA (POCT) Large Abnormal Negative [facility] NITRITE UA (POCT) Negative Negative [facility] PH UA (POCT) 6.0 4.5 - 8.0 [facility] Protein Ql (U) 100 mg/dL Abnormal Negative mg/dL [facility] SPECIFIC GRAVITY UA (POCT) 1.020 1.005 - 1.030 [facility] UROBILINOGEN UA (POCT) 0.2 E.U./dL Umm l E.U./dL [facility] XR CHEST 2V FRONTAL/LATon XR CHEST [...] be communicated with the ordering provider via [employer] staff message or phone message by [facility] within 2 business days of report finalization. Algorithms for management of incidental imaging findings can be found on the [facility] Intranet Sharepoint site at: [email or web address] [email or web address]/[email or web address] links/Managing%20Inc idental%20Findi ngs%20at%20Imaging/F orms/AllItems.aspx Whitewasher: JONATHAN Transcribe Date/Time: Apr 05 2022 2:11P Dictated by : SANDEEP ORTIZ MD This examination was interpreted and the report reviewed and electronically signed by: SANDEEP ORTIZ MD on Apr 05 2022 2:13PM EST [id number] CN ACTIONABLE Invalid Interpretation Code [facility] XR Chest PA and LateralOrder ed By: Cc Provider on 04-05-2022 Interpretation and review of laboratory results Abnormal [facility] XR Chest PA and Lateralon IMPRESSION: [...] be communicated with the ordering provider via [employer] staff message or phone message by [facility] within 2 business days of report finalization. Algorithms for management of incidental imaging findings can be found on the [facility] Intranet Sharepoint site at: [email or web address]://[email or web address] [email or web address]/mychart links/Managing%20Inc idental%20Findi ngs%20at%20Imaging/F orms/AllItems.aspx Whitewasher: JONATHAN Transcribe Date/Time: Apr 05 2022 2:11P Dictated by : SANDEEP ORTIZ MD This examination was interpreted and the report reviewed and electronically signed by: SANDEEP ORTIZ MD on Apr 05 2022 2:13PM [facility] DIVISION OF RADIOLOGY * * *Final Report* [...] the thoracic spine. DIVISION OF RADIOLOGY Provider, [facility] [place] - 04/05/2022 * * *Final Report* * [...] be communicated with the ordering provider via [employer] staff message or phone message by [facility] within 2 business days of report finalization. Algorithms for management of incidental imaging findings can be found on the [facility] Intranet Sharepoint site at: [email or web address]://[email or web address] [email or web address]/mychart links/Managing%20Inc idental%20Findi ngs%20at%20Imaging/F orms/AllItems.aspx Whitewasher: JONATHAN Transcribe Date/Time: Apr 05 2022 2:11P Dictated by : SANDEEP ORTIZ MD This examination was interpreted and the report reviewed and electronically signed by: SANDEEP ORTIZ MD on Apr 05 2022 2:13PM EST [facility] Radiology Study observation (narrative) [facility] Anaerobic culture Bacteria identified Anaer cx Nom (Unsp spec) No anaerobic bacteria isolated. [facility] Work Phone: Bacteria identified Anaer cx Nom (Unsp spec) Anaerobic Culture Anaerobic cocci [facility] Work Phone: Bacteria identified Cx Nom ( Wound) Wound Culture Staphylococcus pseudintermediu [facility] Work Phone: Wound Culture Staphylococcus saprophyticus [facility] Work Phone: Gram stain for investigation of transfusion reaction Microscopic observation Gram stain Nom (Unsp spec) [facility] Work Phone: Vital Signs Date Time Vital Sign Value Performing Clinician Facility 03-17-2025 13:07-0400 Body height 167.[address] Tonio Fajardo DO Work Phone: [facility] 03-17-2025 13:07-0400 Body mass index (BMI) [Ratio] 26.6 kg/m2 Dr. Tonio Fajardo DO Work Phone: [facility] 03-17-2025 13:07-0400 Body weight 74.[address] Tonio Fajardo DO Work Phone: [facility] 03-17-2025 13:07-0400 Diastolic blood pressure 60 mm[Hg] Dr. Tonio Fajardo DO Work Phone: [facility] 03-17-2025 13:07-0400 Heart rate 101 /min Dr. Tonio Fajardo DO Work Phone: [facility] 03-17-2025 13:07-0400 Inhaled oxygen flow rate 3 L/min Dr. Tonio Fajardo DO Work Phone: [facility] 03-17-2025 13:07-0400 Respiratory rate 20 /min Dr. Tonio Fajardo DO Work Phone: [facility] 03-17-2025 13:07-0400 SaO2% (BldA) [Mass fraction] 96 % Dr. Tonio Fajardo DO Work Phone: [facility] 03-17-2025 13:07-0400 Systolic blood pressure 124 mm[Hg] Dr. Tonio Fajardo DO Work Phone: [facility] 03-15-2025 18:32-0400 Body temperature 98.1 [degF] Dr. Tonio Fajardo DO Work Phone: [facility] 03-15-2025 18:32-0400 Diastolic blood pressure 71 mm[Hg] Dr. Tonio Fajardo DO Work Phone: [facility] 03-15-2025 18:32-0400 Heart rate 101 /min Dr. Tonio Fajardo DO Work Phone: [facility] 03-15-2025 18:32-0400 Respiratory rate 18 /min Dr. Tonio Fajardo DO Work Phone: [facility] 03-15-2025 18:32-0400 SaO2% (BldA) [Mass fraction] 93 % Dr. Tonio Fajardo DO Work Phone: [facility] 03-15-2025 18:32-0400 Systolic blood pressure 168 mm[Hg] Dr. Tonio Fajardo DO Work Phone: [facility] 03-15-2025 16:58-0400 Body height 167.[address] Tonio Fajardo DO Work Phone: [facility] 03-15-2025 16:58-0400 Body mass index (BMI) [Ratio] 27.8 kg/m2 Dr. Tonio Fajardo DO Work Phone: [facility] 03-15-2025 16:58-0400 Body weight 78.[address] Tonio Fajardo DO Work Phone: [facility] 03-15-2025 16:58-0400 Inhaled oxygen flow rate 3 L/min Dr. Tonio Fajardo DO Work Phone: [facility] 03-09-2025 16:22-0400 Body temperature 98.5 [degF] Dr. Tonio Fajardo DO Work Phone: [facility] 03-09-2025 16:22-0400 Heart rate 78 /min Dr. Tonio Fajardo DO Work Phone: [facility] 03-09-2025 16:22-0400 Inhaled oxygen flow rate 3 L/min Dr. Tonio Fajardo DO Work Phone: [facility] 03-09-2025 16:22-0400 Respiratory rate 20 /min Dr. Tonio Fajardo DO Work Phone: [facility] 03-09-2025 16:22-0400 SaO2% (BldA) [Mass fraction] 92 % Dr. Tonio Fajardo DO Work Phone: [facility] 03-09-2025 11:48-0400 Inhaled oxygen flow rate 2 L/min Dr. Tonio Fajardo DO Work Phone: [facility] 03-09-2025 11:48-0400 SaO2% (BldA) [Mass fraction] 79 % Dr. Tonio Fajardo DO Work Phone: [facility] 03-09-2025 11:11-0400 Body height 167.[address] Tonio Fajardo DO Work Phone: [facility] 03-09-2025 11:11-0400 Body weight 78.[address] Tonio Fajardo DO Work Phone: [facility] 03-09-2025 10:00-0400 Diastolic blood pressure 51 mm[Hg] Dr. Tonio Fajardo DO Work Phone: [facility] 03-09-2025 10:00-0400 Heart rate 97 /min Dr. Tonio Fajardo DO Work Phone: [facility] 03-09-2025 10:00-0400 Systolic blood pressure 129 mm[Hg] Dr. Tonio Fajardo DO Work Phone: [facility] 03-09-2025 05:00-0400 Body mass index (BMI) [Ratio] 28 kg/m2 Dr. Tonio Fajardo DO Work Phone: [facility] 03-04-2025 20:49-0400 Body temperature 98.6 [degF] Dr. Tonio Fajardo DO Work Phone: [facility] 03-04-2025 20:49-0400 Diastolic blood pressure 70 mm[Hg] Dr. Tonio Fajardo DO Work Phone: [facility] 03-04-2025 20:49-0400 Heart rate 114 /min Dr. Tonio Fajardo DO Work Phone: [facility] 03-04-2025 20:49-0400 Respiratory rate 20 /min Dr. Tonio Fajardo DO Work Phone: [facility] 03-04-2025 20:49-0400 SaO2% (BldA) [Mass fraction] 100 % Dr. Tonio Fajardo DO Work Phone: [facility] 03-04-2025 20:49-0400 Systolic blood pressure 153 mm[Hg] Dr. Tonio Fajardo DO Work Phone: [facility] 03-04-2025 20:00-0400 Inhaled oxygen flow rate 4 L/min Dr. Tonio Fajardo DO Work Phone: [facility] 03-04-2025 15:01-0400 Body height 167.[address] Tonio Fajardo DO Work Phone: [facility] 03-04-2025 15:01-0400 Body mass index (BMI) [Ratio] 25.9 kg/m2 Dr. Tonio Fajardo DO Work Phone: [facility] 03-04-2025 15:01-0400 Body weight 73.[address] Tonio Fajardo DO Work Phone: [facility] 11-06-2024 14:45-0400 Body height 167.[address] Tonio Fajardo DO Work Phone: [facility] 11-06-2024 14:45-0400 Body mass index (BMI) [Ratio] 28.5 kg/m2 Dr. Tonio Fajardo DO Work Phone: [facility] 11-06-2024 14:45-0400 Body temperature 98.5 [degF] Dr. Tonio Fajardo DO Work Phone: [facility] 11-06-2024 14:45-0400 Body weight 80.[address] Tonio Fajardo DO Work Phone: [facility] 11-06-2024 14:45-0400 Diastolic blood pressure 55 mm[Hg] Dr. Tonio Fajardo DO Work Phone: [facility] 11-06-2024 14:45-0400 Heart rate 55 /min Dr. Tonio Fajardo DO Work Phone: [facility] 11-06-2024 14:45-0400 Respiratory rate 18 /min Dr. Tonio Fajardo DO Work Phone: [facility] 11-06-2024 14:45-0400 SaO2% (BldA) [Mass fraction] 95 % Dr. Tonio Fajardo DO Work Phone: [facility] 11-06-2024 14:45-0400 Systolic blood pressure 116 mm[Hg] Dr. Tonio Fajardo DO Work Phone: [facility] 10-23-2024 09:06-0500 Body mass index (BMI) [Ratio] 28.5 kg/m2 Dr. Tonio Fajardo DO Work Phone: [facility] 10-23-2024 09:06-0500 Body temperature 97.4 [degF] Dr. Tonio Fajardo DO Work Phone: [facility] 10-23-2024 09:06-0500 Body weight 80.[address] Tonio Fajardo DO Work Phone: [facility] 10-23-2024 09:06-0500 Diastolic blood pressure 56 mm[Hg] Dr. Tonio Fajardo DO Work Phone: [facility] 10-23-2024 09:06-0500 Heart rate 52 /min Dr. Tonio Fajardo DO Work Phone: [facility] 10-23-2024 09:06-0500 Inhaled oxygen flow rate 3 L/min Dr. Tonio Fajardo DO Work Phone: [facility] 10-23-2024 09:06-0500 Respiratory rate 26 /min Dr. Tonio Fajardo DO Work Phone: [facility] 10-23-2024 09:06-0500 SaO2% (BldA) [Mass fraction] 97 % Dr. Tonio Fajardo DO Work Phone: [facility] 10-23-2024 09:06-0500 Systolic blood pressure 128 mm[Hg] Dr. Tonio Fajardo DO Work Phone: [facility] 10-16-2024 13:24-0500 Body height 167.[address] Tonio Fajardo DO Work Phone: [facility] 10-16-2024 13:24-0500 Body weight 78.[address] Tonio Fajardo DO Work Phone: [facility] 10-16-2024 13:24-0500 Heart rate 98 /min Dr. Tonio Fajardo DO Work Phone: [facility] 10-16-2024 13:24-0500 Inhaled oxygen flow rate 2 L/min Dr. Tonio Fajardo DO Work Phone: [facility] 10-16-2024 13:24-0500 SaO2% (BldA) [Mass fraction] 96 % Dr. Tonio Fajardo DO Work Phone: [facility] 09-25-2024 12:59-0500 Body mass index (BMI) [Ratio] 27.7 kg/m2 Dr. Tonio Fajardo DO Work Phone: [facility] 09-25-2024 12:59-0500 Body weight 80.[address] Tonio Fajardo DO Work Phone: [facility] 09-25-2024 12:59-0500 Diastolic blood pressure 75 mm[Hg] Dr. Tonio Fajardo DO Work Phone: [facility] 09-25-2024 12:59-0500 Heart rate 99 /min Dr. Tonio Fajardo DO Work Phone: [facility] 09-25-2024 12:59-0500 Respiratory rate 18 /min Dr. Tonio Fajardo DO Work Phone: [facility] 09-25-2024 12:59-0500 SaO2% (BldA) [Mass fraction] 90 % Dr. Tonio Fajardo DO Work Phone: [facility] 09-25-2024 12:59-0500 Systolic blood pressure 120 mm[Hg] Dr. Tonio Fajardo DO Work Phone: [facility] 11-12-2023 13:22-0400 Body height 170.[address] Tonio Fajardo Work Phone: [facility] 11-12-2023 13:22-0400 Body mass index (BMI) [Ratio] 28 kg/m2 Dr. Tonio Fajardo Work Phone: [facility] 11-12-2023 13:22-0400 Body temperature 97.9 [degF] Dr. Tonio Fajardo Work Phone: [facility] 11-12-2023 13:22-0400 Body weight 81.[address] Tonio Fajardo Work Phone: [facility] 11-12-2023 13:22-0400 Diastolic blood pressure 62 mm[Hg] Dr. Tonio Fajardo Work Phone: [facility] 11-12-2023 13:22-0400 Heart rate 103 /min Dr. Tonio Fajardo Work Phone: [facility] 11-12-2023 13:22-0400 Respiratory rate 18 /min Dr. Tonio Fajardo Work Phone: [facility] 11-12-2023 13:22-0400 SaO2% (BldA) [Mass fraction] 98 % Dr. Tonio Fajardo Work Phone: [facility] 11-12-2023 13:22-0400 Systolic blood pressure 97 mm[Hg] Dr. Tonio Fajardo Work Phone: [facility] 10-31-2023 12:05-0400 Body mass index (BMI) [Ratio] 27.3 kg/m2 Dr. Tonio Fajardo Work Phone: [facility] 10-31-2023 12:05-0400 Body temperature 98.2 [degF] Dr. Tonio Fajardo Work Phone: [facility] 10-31-2023 12:05-0400 Body weight 79.[address] Tonio Fajardo Work Phone: [facility] 10-31-2023 12:05-0400 Diastolic blood pressure 71 mm[Hg] Dr. Tonio Fajardo Work Phone: [facility] 10-31-2023 12:05-0400 Heart rate 78 /min Dr. Tonio Fajardo Work Phone: [facility] 10-31-2023 12:05-0400 Respiratory rate 18 /min Dr. Tonio Fajardo Work Phone: [facility] 10-31-2023 12:05-0400 SaO2% (BldA) [Mass fraction] 94 % Dr. Tonio Fajardo Work Phone: [facility] 10-31-2023 12:05-0400 Systolic blood pressure 119 mm[Hg] Dr. Tonio Fajardo Work Phone: [facility] 10-18-2023 14:51-0500 Body mass index (BMI) [Ratio] 28 kg/m2 Dr. Tonio Fajardo Work Phone: [facility] 10-18-2023 14:51-0500 Body temperature 98.9 [degF] Dr. Tonio Fajardo Work Phone: [facility] 10-18-2023 14:51-0500 Body weight 81.[address] Tonio Fajardo Work Phone: [facility] 10-18-2023 14:51-0500 Diastolic blood pressure 60 mm[Hg] Dr. Tonio Fajardo Work Phone: [facility] 10-18-2023 14:51-0500 Heart rate 98 /min Dr. Tonio Fajardo Work Phone: [facility] 10-18-2023 14:51-0500 Respiratory rate 18 /min Dr. Toino Fajardo Work Phone: [facility] 10-18-2023 14:51-0500 SaO2% (BldA) [Mass fraction] 96 % Dr. Tonio Fajardo Work Phone: [facility] 10-18-2023 14:51-0500 Systolic blood pressure 114 mm[Hg] Dr. Tonio Fajardo Work Phone: [facility] 08-29-2023 12:52-0500 Body height 170.[address] Tonio Fajardo Work Phone: [facility] 08-29-2023 12:52-0500 Body mass index (BMI) [Ratio] 27.8 kg/m2 Dr. Tonio Fajardo Work Phone: [facility] 08-29-2023 12:52-0500 Body weight 80.[address] Tonio Fajardo Work Phone: [facility] 08-29-2023 12:52-0500 Diastolic blood pressure 71 mm[Hg] Dr. Tonio Fajardo Work Phone: [facility] 08-29-2023 12:52-0500 Heart rate 95 /min Dr. Tonio Fajardo Work Phone: [facility] 08-29-2023 12:52-0500 Respiratory rate 18 /min Dr. Tonio Fajardo Work Phone: [facility] 08-29-2023 12:52-0500 SaO2% (BldA) [Mass fraction] 97 % Dr. Tonio Fajardo Work Phone: [facility] 08-29-2023 12:52-0500 Systolic blood pressure 111 mm[Hg] Dr. Tonio Fajardo Work Phone: [facility] 07-25-2023 07:50-0500 Body height 170.[address] Tonio Fajardo Work Phone: [facility] 07-25-2023 07:50-0500 Body mass index (BMI) [Ratio] 29.4 kg/m2 Dr. Tonio Fajardo Work Phone: [facility] 07-25-2023 07:50-0500 Body temperature 96.2 [degF] Dr. Tonio Fajardo Work Phone: [facility] 07-25-2023 07:50-0500 Body weight 85.[address] Tonio Fajardo Work Phone: [facility] 07-25-2023 07:50-0500 Diastolic blood pressure 75 mm[Hg] Dr. Tonio Fajardo Work Phone: [facility] 07-25-2023 07:50-0500 Heart rate 53 /min Dr. Tonio Fajardo Work Phone: [facility] 07-25-2023 07:50-0500 Respiratory rate 20 /min Dr. Tonio Fajardo Work Phone: [facility] 07-25-2023 07:50-0500 SaO2% (BldA) [Mass fraction] 82 % Dr. Tonio Fajardo Work Phone: [facility] 07-25-2023 07:50-0500 Systolic blood pressure 119 mm[Hg] Dr. Tonio Fajardo Work Phone: [facility] 06-08-2023 14:33-0400 Body temperature 97.1 [degF] Dr. Tonio Fajardo Work Phone: [facility] 06-08-2023 14:33-0400 Diastolic blood pressure 67 mm[Hg] Dr. Tonio Fajardo Work Phone: [facility] 06-08-2023 14:33-0400 Heart rate 103 /min Dr. Tonio Fajardo Work Phone: [facility] 06-08-2023 14:33-0400 Respiratory rate 14 /min Dr. Tonio Fajardo Work Phone: [facility] 06-08-2023 14:33-0400 SaO2% (BldA) [Mass fraction] 93 % Dr. Tonio Fajardo Work Phone: [facility] 06-08-2023 14:33-0400 Systolic blood pressure 133 mm[Hg] Dr. Tonio Fajardo Work Phone: [facility] 06-08-2023 12:20-0400 Body height 170.[address] Tonio Fajardo Work Phone: [facility] 06-08-2023 12:20-0400 Body mass index (BMI) [Ratio] 29.3 kg/m2 Dr. Tonio Fajardo Work Phone: [facility] 06-08-2023 12:20-0400 Body weight [address] Tonio Fajardo Work Phone: [facility] 05-02-2023 13:50-0400 Diastolic blood pressure 63 mm[Hg] Dr. Tonio Fajardo Work Phone: [facility] 05-02-2023 13:50-0400 Heart rate 97 /min Dr. Tonio Fajardo Work Phone: [facility] 05-02-2023 13:50-0400 Respiratory rate 18 /min Dr. Tonio Fajardo Work Phone: [facility] [facility] 05-02-2023 13:50-0400 Systolic blood pressure 113 mm[Hg] Dr. Tonio Fajardo Work Phone: [facility] 04-25-2023 14:04-0400 Body temperature 97.9 [degF] Dr. Tonio Fajardo Work Phone: [facility] 04-18-2023 13:24-0400 Body temperature 97.5 [degF] Dr. Tonio Fajardo Work Phone: [facility] 04-18-2023 13:24-0400 Diastolic blood pressure 77 mm[Hg] Dr. Tonio Fajardo Work Phone: [facility] 04-18-2023 13:24-0400 Heart rate 109 /min Dr. Tonio Fajardo Work Phone: [facility] 04-18-2023 13:24-0400 Respiratory rate 16 /min Dr. Tonio Fajardo Work Phone: [facility] 04-18-2023 13:24-0400 Systolic blood pressure 141 mm[Hg] Dr. Tonio Fajardo Work Phone: [facility] 04-17-2023 11:08-0400 Body height 167.[address] Tonio Fajardo Work Phone: [facility] 04-17-2023 11:08-0400 Body mass index (BMI) [Ratio] 30.2 kg/m2 Dr. Tonio Fajardo Work Phone: [facility] 04-17-2023 11:08-0400 Body temperature 98.6 [degF] Dr. Tonio Fajardo Work Phone: [facility] 04-17-2023 11:08-0400 Body weight 84.[address] Tonio Fajardo Work Phone: [facility] 04-17-2023 11:08-0400 Diastolic blood pressure 87 mm[Hg] Dr. Tonio Fajardo Work Phone: [facility] 04-17-2023 11:08-0400 Heart rate 87 /min Dr. Tonio Fajardo Work Phone: [facility] 04-17-2023 11:08-0400 Respiratory rate 18 /min Dr. Tonio Fajardo Work Phone: [facility] 04-17-2023 11:08-0400 SaO2% (BldA) [Mass fraction] 95 % Dr. Tonio Fajardo Work Phone: [facility] 04-17-2023 11:08-0400 Systolic blood pressure 130 mm[Hg] Dr. Tonio Fajardo Work Phone: [facility] 04-02-2023 11:24-0400 Body temperature 98.6 [degF] Dr. Tonio Fajardo Work Phone: [facility] 04-02-2023 11:24-0400 Diastolic blood pressure 55 mm[Hg] Dr. Tonio Fajardo Work Phone: [facility] 04-02-2023 11:24-0400 Heart rate 101 /min Dr. Tonio Fajardo Work Phone: [facility] 04-02-2023 11:24-0400 Respiratory rate 20 /min Dr. Tonio Fajardo Work Phone: [facility] 04-02-2023 11:24-0400 Systolic blood pressure 114 mm[Hg] Dr. Tonio Fajardo Work Phone: [facility] 03-19-2023 10:28-0400 Body temperature 98.2 [degF] Dr. Tonio Fajardo Work Phone: [facility] 03-19-2023 10:28-0400 Diastolic blood pressure 59 mm[Hg] Dr. Tonio Fajardo Work Phone: [facility] 03-19-2023 10:28-0400 Heart rate 106 /min Dr. Tonio Fajardo Work Phone: [facility] 03-19-2023 10:28-0400 Respiratory rate 20 /min Dr. Tonio Fajardo Work Phone: [facility] 03-19-2023 10:28-0400 Systolic blood pressure 120 mm[Hg] Dr. Tonio Fajardo Work Phone: [facility] 02-05-2023 13:10-0400 Body temperature 97.6 [degF] Dr. Tonio Fajardo Work Phone: [facility] 02-05-2023 13:10-0400 Diastolic blood pressure 76 mm[Hg] Dr. Tonio Fajardo Work Phone: [facility] 02-05-2023 13:10-0400 Heart rate 109 /min Dr. Tonio Fajardo Work Phone: [facility] 02-05-2023 13:10-0400 Respiratory rate 18 /min Dr. Tonio Fajardo Work Phone: [facility] 02-05-2023 13:10-0400 Systolic blood pressure 160 mm[Hg] Dr. Tonio Fajardo Work Phone: [facility] 01-08-2023 13:37-0400 Body temperature 96.7 [degF] Dr. Tonoi Fajardo Work Phone: [facility] 01-08-2023 13:37-0400 Diastolic blood pressure 46 mm[Hg] Dr. Tonio Fajardo Work Phone: [facility] 01-08-2023 13:37-0400 Heart rate 111 /min Dr. Tonio Fajardo Work Phone: [facility] 01-08-2023 13:37-0400 Systolic blood pressure 121 mm[Hg] Dr. Tonio Fajardo Work Phone: [facility] 12-31-2022 00:58-0400 Body temperature 98.7 [degF] Dr. Tonio Fajardo Work Phone: [facility] 12-31-2022 00:58-0400 Diastolic blood pressure 59 mm[Hg] Dr. Tonio Fajardo Work Phone: [facility] 12-31-2022 00:58-0400 Heart rate 111 /min Dr. Tonio Fajardo Work Phone: [facility] 12-31-2022 00:58-0400 Respiratory rate 26 /min Dr. Tonio Fajardo Work Phone: [facility] 12-31-2022 00:58-0400 SaO2% (BldA) [Mass fraction] 93 % Dr. Tonio Fajardo Work Phone: [facility] 12-31-2022 00:58-0400 Systolic blood pressure 131 mm[Hg] Dr. Tonio Fajardo Work Phone: [facility] 12-30-2022 22:36-0400 Body height 167.[address] Tonio Fajardo Work Phone: [facility] 12-30-2022 22:36-0400 Body mass index (BMI) [Ratio] 30.5 kg/m2 Dr. Tonio Fajardo Work Phone: [facility] 12-30-2022 22:36-0400 Body weight 85.[address] Tonio Fajardo Work Phone: [facility] 12-25-2022 14:53-0400 Body temperature 97.7 [degF] Dr. Tonio Fajardo Work Phone: [facility] 12-25-2022 14:53-0400 Diastolic blood pressure 51 mm[Hg] Dr. Tonio Fajardo Work Phone: [facility] 12-25-2022 14:53-0400 Heart rate 110 /min Dr. Tonio Fajardo Work Phone: [facility] 12-25-2022 14:53-0400 Respiratory rate 18 /min Dr. Tonio Fajardo Work Phone: [facility] 12-25-2022 14:53-0400 Systolic blood pressure 101 mm[Hg] Dr. Tonio Fajardo Work Phone: [facility] 12-12-2022 10:49-0400 Body height 167.[address] Tonio Fajardo Work Phone: [facility] 12-12-2022 10:49-0400 Body mass index (BMI) [Ratio] 29.7 kg/m2 Dr. Tonio Fajardo Work Phone: [facility] 12-12-2022 10:49-0400 Body temperature 97.4 [degF] Dr. Tonio Fajardo Work Phone: [facility] 12-12-2022 10:49-0400 Body weight 83.[address] Tonio Fajardo Work Phone: [facility] 12-12-2022 10:49-0400 Diastolic blood pressure 71 mm[Hg] Dr. Tonio Fajardo Work Phone: [facility] 12-12-2022 10:49-0400 Heart rate 114 /min Dr. Tonio Fajardo Work Phone: [facility] 12-12-2022 10:49-0400 Respiratory rate 18 /min Dr. Tonio Fajardo Work Phone: [facility] 12-12-2022 10:49-0400 SaO2% (BldA) [Mass fraction] 96 % Dr. Tonio Fajardo Work Phone: [facility] 04-25-2023 10:49-0400 Systolic blood pressure 135 mm[Hg] Dr. Tonio Fajardo Work Phone: [facility] 12-11-2022 13:12-0400 Body temperature 96.2 [degF] Dr. Tonio Fajardo Work Phone: [facility] 12-11-2022 13:12-0400 Diastolic blood pressure 87 mm[Hg] Dr. Tonio Fajardo Work Phone: [facility] 12-11-2022 13:12-0400 Heart rate 107 /min Dr. Tonio Fajardo Work Phone: [facility] 12-11-2022 13:12-0400 Respiratory rate 20 /min Dr. Tonio Fajardo Work Phone: [facility] 12-11-2022 13:12-0400 Systolic blood pressure 110 mm[Hg] Dr. Tonio Fajardo Work Phone: [facility] 11-16-2022 13:13-0400 Diastolic blood pressure 49 mm[Hg] Dr. Tonio Fajardo Work Phone: [facility] 11-16-2022 13:13-0400 Heart rate 82 /min Dr. Tonio Fajardo Work Phone: [facility] 11-16-2022 13:13-0400 Respiratory rate 16 /min Dr. Tonio Fajardo Work Phone: [facility] 11-16-2022 13:13-0400 Systolic blood pressure 125 mm[Hg] Dr. Tonio Fajardo Work Phone: [facility] 11-08-2022 09:52-0400 Body temperature 97.3 [degF] Dr. Tonio Fajardo Work Phone: [facility] 10-16-2022 14:07-0500 Body height 167.[address] Tonio Fajardo Work Phone: [facility] 10-16-2022 14:05-0500 Body mass index (BMI) [Ratio] 29.8 kg/m2 Dr. Tonio Fajardo Work Phone: [facility] 10-16-2022 14:05-0500 Body temperature 97.6 [degF] Dr. Tonio Fajardo Work Phone: [facility] 10-16-2022 14:05-0500 Body weight 83.[address] Tonio Fajardo Work Phone: [facility] 10-16-2022 14:05-0500 Diastolic blood pressure 89 mm[Hg] Dr. Tonio Fajardo Work Phone: [facility] 10-16-2022 14:05-0500 Heart rate 78 /min Dr. Tonio Fajardo Work Phone: [facility] 10-16-2022 14:05-0500 Respiratory rate 18 /min Dr. Tonio Fajardo Work Phone: [facility] 10-16-2022 14:05-0500 SaO2% (BldA) [Mass fraction] 94 % Dr. Tonio Fajardo Work Phone: [facility] 10-16-2022 14:05-0500 Systolic blood pressure 145 mm[Hg] Dr. Tonio Fajardo Work Phone: [facility] 10-16-2022 13:24-0500 Body mass index (BMI) [Ratio] 29.8 kg/m2 Dr. Tonio Fajardo Work Phone: [facility] 10-16-2022 13:24-0500 Body temperature 98.6 [degF] Dr. Tonio Fajardo Work Phone: [facility] 10-16-2022 13:24-0500 Body weight 83.[address] Tonio Fajardo Work Phone: [facility] 10-16-2022 13:24-0500 Diastolic blood pressure 74 mm[Hg] Dr. Tonio Fajardo Work Phone: [facility] 10-16-2022 13:24-0500 Heart rate 75 /min Dr. Tonio Fajardo Work Phone: [facility] 10-16-2022 13:24-0500 Respiratory rate 18 /min Dr. Tonio Fajardo Work Phone: [facility] 10-16-2022 13:24-0500 SaO2% (BldA) [Mass fraction] 94 % Dr. Tonio Fajardo Work Phone: [facility] 10-16-2022 13:24-0500 Systolic blood pressure 146 mm[Hg] Dr. Tonio Fajardo Work Phone: [facility] 10-09-2022 12:59-0500 Body temperature 97.5 [degF] Dr. Tonio Fajardo Work Phone: [facility] 10-09-2022 12:59-0500 Diastolic blood pressure 63 mm[Hg] Dr. Tonio Fajardo Work Phone: [facility] 10-09-2022 12:59-0500 Heart rate 89 /min Dr. Tonio Fajardo Work Phone: [facility] 10-09-2022 12:59-0500 Respiratory rate 22 /min Dr. Tonio Fajardo Work Phone: [facility] 10-09-2022 12:59-0500 Systolic blood pressure 148 mm[Hg] Dr. Tonio Fajardo Work Phone: [facility] 09-18-2022 09:49-0500 Body temperature 97.3 [degF] Dr. Tonio Fajardo Work Phone: [facility] 09-18-2022 09:49-0500 Diastolic blood pressure 44 mm[Hg] Dr. Tonio Fajardo Work Phone: [facility] 09-18-2022 09:49-0500 Heart rate 66 /min Dr. Tonio Fajardo Work Phone: [facility] 09-18-2022 09:49-0500 Respiratory rate 18 /min Dr. Tonio Fajardo Work Phone: [facility] 09-18-2022 09:49-0500 Systolic blood pressure 138 mm[Hg] Dr. Tonio Fajardo Work Phone: [facility] 08-15-2022 13:56-0500 Body temperature 97.1 [degF] Dr. Tonio Fajardo Work Phone: [facility] 08-15-2022 13:56-0500 Diastolic blood pressure 43 mm[Hg] Dr. Tonio Fajardo Work Phone: [facility] 08-15-2022 13:56-0500 Heart rate 73 /min Dr. Tonio Fajardo Work Phone: [facility] 08-15-2022 13:56-0500 Respiratory rate 16 /min Dr. Tonio Fajardo Work Phone: [facility] 08-15-2022 13:56-0500 Systolic blood pressure 139 mm[Hg] Dr. Tonio Fajardo Work Phone: [facility] 08-08-2022 14:00-0500 Body height 167.[address] Tonio Fajardo Work Phone: [facility] 08-08-2022 13:57-0500 Body mass index (BMI) [Ratio] 29.5 kg/m2 Dr. Tonio Fajardo Work Phone: [facility] 08-08-2022 13:57-0500 Body temperature 97.5 [degF] Dr. Tonio Fajardo Work Phone: [facility] 08-08-2022 13:57-0500 Body weight 83.[address] Tonio Fajardo Work Phone: [facility] 08-08-2022 13:57-0500 Diastolic blood pressure 54 mm[Hg] Dr. Tonio Fajardo Work Phone: [facility] 08-08-2022 13:57-0500 Heart rate 67 /min Dr. Tonio Fajardo Work Phone: [facility] 08-08-2022 13:57-0500 Respiratory rate 16 /min Dr. Tonio Fajardo Work Phone: [facility] 08-08-2022 13:57-0500 SaO2% (BldA) [Mass fraction] 94 % Dr. Tonio Fajardo Work Phone: [facility] 08-08-2022 13:57-0500 Systolic blood pressure 109 mm[Hg] Dr. Tonio Fajardo Work Phone: [facility] 07-19-2022 14:30-0500 Body height 167.[address] Tonio Fajardo Work Phone: [facility] Work Phone: 07-19-2022 14:30-0500 Body mass index (BMI) [Ratio] 29 kg/m2 Dr. Tonio Fajardo Work Phone: [facility] 07-19-2022 14:30-0500 Body weight 81.[address] Tonio Fajardo Work Phone: [facility] 07-19-2022 14:30-0500 Diastolic blood pressure 62 mm[Hg] Dr. Tonio Fajardo Work Phone: [facility] 07-19-2022 14:30-0500 Heart rate 66 /min Dr. Tonio Fajardo Work Phone: [facility] 07-19-2022 14:30-0500 Respiratory rate 24 /min Dr. Tonio Fajardo Work Phone: [facility] 07-19-2022 14:30-0500 SaO2% (BldA) [Mass fraction] 97 % Dr. Tonio Fajardo Work Phone: [facility] 07-19-2022 14:30-0500 Systolic blood pressure 117 mm[Hg] Dr. Tonio Fajardo Work Phone: [facility] 07-18-2022 13:29-0500 Body temperature 97.1 [degF] Dr. Tonio Fajardo Work Phone: [facility] 07-18-2022 13:29-0500 Diastolic blood pressure 57 mm[Hg] Dr. Tonio Fajardo Work Phone: [facility] 07-18-2022 13:29-0500 Heart rate 83 /min Dr. oTnio Fajardo Work Phone: [facility] 07-18-2022 13:29-0500 Respiratory rate 16 /min Dr. Tonio Fajardo Work Phone: [facility] 07-18-2022 13:29-0500 Systolic blood pressure 117 mm[Hg] Dr. Tonio Fajardo Work Phone: [facility] 07-17-2022 11:23-0500 Body temperature 98.3 [degF] Dr. Tonio Fajardo Work Phone: [facility] 07-17-2022 11:23-0500 Diastolic blood pressure 58 mm[Hg] Dr. Tonio Fajardo Work Phone: [facility] 07-17-2022 11:23-0500 Heart rate 63 /min Dr. Tonio Fajardo Work Phone: [facility] 07-17-2022 11:23-0500 Respiratory rate 16 /min Dr. Tonio Fajardo Work Phone: [facility] 07-17-2022 11:23-0500 SaO2% (BldA) [Mass fraction] 97 % Dr. Tonio Fajardo Work Phone: [facility] 07-17-2022 11:23-0500 Systolic blood pressure 107 mm[Hg] Dr. Tonio Fajardo Work Phone: [facility] 07-05-2022 14:00-0500 Body mass index (BMI) [Ratio] 29 kg/m2 Dr. Tonio Fajardo Work Phone: [facility] 07-05-2022 14:00-0500 Body temperature 96.9 [degF] Dr. Tonio Fajardo Work Phone: [facility] 07-05-2022 14:00-0500 Body weight 81.[address] Tonio Fajardo Work Phone: [facility] 07-05-2022 14:00-0500 Diastolic blood pressure 63 mm[Hg] Dr. Tonio Fajardo Work Phone: [facility] 07-05-2022 14:00-0500 Heart rate 66 /min Dr. Tonio Fajardo Work Phone: [facility] 07-05-2022 14:00-0500 Respiratory rate 16 /min Dr. Tonio Fajardo Work Phone: [facility] 07-05-2022 14:00-0500 SaO2% (BldA) [Mass fraction] 97 % Dr. Tonio Fajardo Work Phone: [facility] 07-05-2022 14:00-0500 Systolic blood pressure 156 mm[Hg] Dr. Tonio Fajardo Work Phone: [facility] 06-28-2022 14:11-0500 Body mass index (BMI) [Ratio] 29.6 kg/m2 Dr. Tonio Fajardo Work Phone: [facility] 06-28-2022 14:11-0500 Body temperature 97.1 [degF] Dr. Tonio Fajardo Work Phone: [facility] 06-28-2022 14:11-0500 Body weight 83.[address] Tonio Fajardo Work Phone: [facility] 06-28-2022 14:11-0500 Diastolic blood pressure 58 mm[Hg] Dr. Tonio Fajardo Work Phone: [facility] 06-28-2022 14:11-0500 Heart rate 77 /min Dr. Tonio Fajardo Work Phone: [facility] 06-28-2022 14:11-0500 Respiratory rate 16 /min Dr. Tonio Fajardo Work Phone: [facility] 06-28-2022 14:11-0500 SaO2% (BldA) [Mass fraction] 89 % Dr. Tonio Fajardo Work Phone: [facility] 06-28-2022 14:11-0500 Systolic blood pressure 124 mm[Hg] Dr. Tonio Fajardo Work Phone: [facility] 06-21-2022 13:57-0400 Body mass index (BMI) [Ratio] 29.8 kg/m2 Dr. Tonio Fajardo Work Phone: [facility] 06-21-2022 13:57-0400 Body temperature 97 [degF] Dr. Tonio Fajardo Work Phone: [facility] 06-21-2022 13:57-0400 Body weight 83.[address] Tonio Fajardo Work Phone: [facility] 06-21-2022 13:57-0400 Diastolic blood pressure 88 mm[Hg] Dr. Tonio Fajardo Work Phone: [facility] 06-21-2022 13:57-0400 Heart rate 70 /min Dr. Tonio Fajardo Work Phone: [facility] 06-21-2022 13:57-0400 Respiratory rate 18 /min Dr. Tonio Fajardo Work Phone: [facility] 06-21-2022 13:57-0400 SaO2% (BldA) [Mass fraction] 94 % Dr. Tonio Fajardo Work Phone: [facility] 06-21-2022 13:57-0400 Systolic blood pressure 139 mm[Hg] Dr. Tonio Fajardo Work Phone: [facility] 06-14-2022 13:55-0400 Body height 167.[address] Tonio Fajardo Work Phone: [facility] Work Phone: 06-14-2022 13:53-0400 Body mass index (BMI) [Ratio] 29.5 kg/m2 Dr. Tonio Fajardo Work Phone: [facility] 06-14-2022 13:53-0400 Body temperature 97 [degF] Dr. Tonio Fajardo Work Phone: [facility] 06-14-2022 13:53-0400 Body weight 83.[address] Tonio Fajardo Work Phone: [facility] 06-14-2022 13:53-0400 Diastolic blood pressure 61 mm[Hg] Dr. Tonio Fajardo Work Phone: [facility] 06-14-2022 13:53-0400 Heart rate 66 /min Dr. Tonio Fajardo Work Phone: [facility] 06-14-2022 13:53-0400 Respiratory rate 16 /min Dr. Tonio Fajardo Work Phone: [facility] 06-14-2022 13:53-0400 SaO2% (BldA) [Mass fraction] 94 % Dr. Tonio Fajardo Work Phone: [facility] 06-14-2022 13:53-0400 Systolic blood pressure 137 mm[Hg] Dr. Tonio Fajardo Work Phone: [facility] 06-12-2022 10:32-0400 Body temperature 97.3 [degF] Dr. Tonio Fajardo Work Phone: [facility] 06-12-2022 10:32-0400 Diastolic blood pressure 63 mm[Hg] Dr. Tonio Fajardo Work Phone: [facility] 06-12-2022 10:32-0400 Heart rate 59 /min Dr. Tonio Fajardo Work Phone: [facility] 06-12-2022 10:32-0400 Respiratory rate 18 /min Dr. Tonio Fajardo Work Phone: [facility] 06-12-2022 10:32-0400 Systolic blood pressure 149 mm[Hg] Dr. Tonio Fajardo Work Phone: [facility] 05-30-2022 14:08-0400 Body height 167.[address] Tonio Fajardo Work Phone: [facility] Work Phone: 05-30-2022 14:05-0400 Body mass index (BMI) [Ratio] 29.7 kg/m2 Dr. Tonio Fajardo Work Phone: [facility] 05-30-2022 14:05-0400 Body temperature 97 [degF] Dr. Tonio Fajardo Work Phone: [facility] 05-30-2022 14:05-0400 Body weight 83.[address] Tonio Fajardo Work Phone: [facility] 05-30-2022 14:05-0400 Diastolic blood pressure 64 mm[Hg] Dr. Tonio Fajardo Work Phone: [facility] 05-30-2022 14:05-0400 Heart rate 65 /min Dr. Tonio Fajardo Work Phone: [facility] 05-30-2022 14:05-0400 Respiratory rate 18 /min Dr. Tonio Fajardo Work Phone: [facility] 05-30-2022 14:05-0400 SaO2% (BldA) [Mass fraction] 95 % Dr. Tonio Fajardo Work Phone: [facility] 05-30-2022 14:05-0400 Systolic blood pressure 145 mm[Hg] Dr. Tonio Fajardo Work Phone: [facility] 05-29-2022 14:48-0400 Body temperature 97.6 [degF] Dr. Tonio Fajardo Work Phone: [facility] Work Phone: 05-29-2022 14:48-0400 Diastolic blood pressure 51 mm[Hg] Dr. Tonio Fajardo Work Phone: [facility] Work Phone: 05-29-2022 14:48-0400 Heart rate 75 /min Dr. Tonio Fajardo Work Phone: [facility] Work Phone: 05-29-2022 14:48-0400 Systolic blood pressure 158 mm[Hg] Dr. Tonio Fajardo Work Phone: [facility] Work Phone: 05-24-2022 14:31-0400 Body height 167.[address] Tonio Fajardo Work Phone: [facility] Work Phone: 05-24-2022 14:22-0400 Body mass index (BMI) [Ratio] 29.7 kg/m2 Dr. Tonio Fajardo Work Phone: [facility] 05-24-2022 14:22-0400 Body temperature 98.2 [degF] Dr. Tonio Fajardo Work Phone: [facility] 05-24-2022 14:22-0400 Body weight 83.[address] Tonio Fajardo Work Phone: [facility] 05-24-2022 14:22-0400 Diastolic blood pressure 74 mm[Hg] Dr. Tonio Fajardo Work Phone: [facility] 05-24-2022 14:22-0400 Heart rate 74 /min Dr. Tonio Fajardo Work Phone: [facility] 05-24-2022 14:22-0400 Respiratory rate 15 /min Dr. Tonio Fajardo Work Phone: [facility] 05-24-2022 14:22-0400 SaO2% (BldA) [Mass fraction] 96 % Dr. Tonio Fajardo Work Phone: [facility] 05-24-2022 14:22-0400 Systolic blood pressure 135 mm[Hg] Dr. Tonio Fajardo Work Phone: [facility] 05-24-2022 13:26-0400 Body temperature 96.7 [degF] Dr. Tonio Fajardo Work Phone: [facility] Work Phone: 05-24-2022 13:26-0400 Diastolic blood pressure 57 mm[Hg] Dr. Tonio Fajardo Work Phone: [facility] Work Phone: 05-24-2022 13:26-0400 Heart rate 81 /min Dr. Tonio Fajardo Work Phone: [facility] Work Phone: 05-24-2022 13:26-0400 Respiratory rate 18 /min Dr. Tonio Fajardo Work Phone: [facility] Work Phone: 05-24-2022 13:26-0400 Systolic blood pressure 141 mm[Hg] Dr. Tonio Fajardo Work Phone: [facility] Work Phone: 05-17-2022 15:07-0400 Body temperature 97.5 [degF] Dr. Tonio Fajardo Work Phone: [facility] Work Phone: 05-17-2022 15:07-0400 Diastolic blood pressure 63 mm[Hg] Dr. Tonio Fajardo Work Phone: [facility] Work Phone: 05-17-2022 15:07-0400 Heart rate 71 /min Dr. Tonio Fajardo Work Phone: [facility] Work Phone: 05-17-2022 15:07-0400 Respiratory rate 20 /min Dr. Tonio Fajardo Work Phone: [facility] Work Phone: 05-17-2022 15:07-0400 Systolic blood pressure 142 mm[Hg] Dr. Tonio Fajardo Work Phone: [facility] Work Phone: 05-11-2022 16:01-0400 Body height 167.[address] Tonio Fajardo Work Phone: [facility] Work Phone: 05-11-2022 15:54-0400 Body mass index (BMI) [Ratio] 29.4 kg/m2 Dr. Tonio Fajardo Work Phone: [facility] Work Phone: 05-11-2022 15:54-0400 Body temperature 98.4 [degF] Dr. Tonio Fajardo Work Phone: [facility] Work Phone: 05-11-2022 15:54-0400 Body weight 82.[address] Tonio Fajardo Work Phone: [facility] Work Phone: 05-11-2022 15:54-0400 Diastolic blood pressure 67 mm[Hg] Dr. Tonio Fajardo Work Phone: [facility] Work Phone: 05-11-2022 15:54-0400 Heart rate 63 /min Dr. Tonio Fajardo Work Phone: [facility] Work Phone: 05-11-2022 15:54-0400 Respiratory rate 16 /min Dr. Tonio Fajardo Work Phone: [facility] Work Phone: 05-11-2022 15:54-0400 SaO2% (BldA) [Mass fraction] 96 % Dr. Tonio Fajardo Work Phone: [facility] Work Phone: 05-11-2022 15:54-0400 Systolic blood pressure 100 mm[Hg] Dr. Tonio Fajardo Work Phone: [facility] Work Phone: 05-11-2022 08:32-0400 Body mass index (BMI) [Ratio] 29.4 kg/m2 Dr. Tonio Fajardo Work Phone: [facility] Work Phone: 05-11-2022 08:32-0400 Body temperature 97.2 [degF] Dr. Tonio Fajardo Work Phone: [facility] Work Phone: 05-11-2022 08:32-0400 Body weight 82.[address] Tonio Fajardo Work Phone: [facility] Work Phone: 05-11-2022 08:32-0400 Diastolic blood pressure 62 mm[Hg] Dr. Tonio Fajardo Work Phone: [facility] Work Phone: 05-11-2022 08:32-0400 Heart rate 73 /min Dr. Tonio Fajardo Work Phone: [facility] Work Phone: 05-11-2022 08:32-0400 Respiratory rate 20 /min Dr. Tonio Fajardo Work Phone: [facility] Work Phone: 05-11-2022 08:32-0400 SaO2% (BldA) [Mass fraction] 96 % Dr. Tonio Fajardo Work Phone: [facility] Work Phone: 05-11-2022 08:32-0400 Systolic blood pressure 145 mm[Hg] Dr. Tonio Fajardo Work Phone: [facility] Work Phone: 04-28-2022 11:40-0400 Body temperature 97.4 [degF] Dr. Tonio Fajardo Work Phone: [facility] Work Phone: 04-28-2022 11:40-0400 Diastolic blood pressure 46 mm[Hg] Dr. Tonio Fajardo Work Phone: [facility] Work Phone: 04-28-2022 11:40-0400 Heart rate 66 /min Dr. Tonio Fajardo Work Phone: [facility] Work Phone: 04-28-2022 11:40-0400 Respiratory rate 20 /min Dr. Tonio Fajardo Work Phone: [facility] Work Phone: 04-28-2022 11:40-0400 SaO2% (BldA) [Mass fraction] 96 % Dr. Tonio Fajardo Work Phone: [facility] Work Phone: 04-28-2022 11:40-0400 Systolic blood pressure 138 mm[Hg] Dr. Tonio Fajardo Work Phone: [facility] Work Phone: 04-28-2022 09:44-0400 Inhaled oxygen flow rate 2 L/min Dr. Tonio Fajardo Work Phone: [facility] Work Phone: 04-28-2022 08:15-0400 Body height 167.[address] Tonio Fajardo Work Phone: [facility] Work Phone: 04-28-2022 08:15-0400 Body mass index (BMI) [Ratio] 28 kg/m2 Dr. Tonio Fajardo Work Phone: [facility] Work Phone: 04-28-2022 08:15-0400 Body weight 78.[address] Tonio Fajardo Work Phone: [facility] Work Phone: 04-26-2022 13:47-0400 Body temperature 97 [degF] Dr. Tonio Fajardo Work Phone: [facility] Work Phone: 04-26-2022 13:47-0400 Diastolic blood pressure 33 mm[Hg] Dr. Tonio Fajardo Work Phone: [facility] Work Phone: 04-26-2022 13:47-0400 Heart rate 80 /min Dr. Tonio Fajardo Work Phone: [facility] Work Phone: 04-26-2022 13:47-0400 Respiratory rate 18 /min Dr. Tonio Fajardo Work Phone: [facility] Work Phone: 04-26-2022 13:47-0400 Systolic blood pressure 118 mm[Hg] Dr. Tonio Fajardo Work Phone: [facility] Work Phone: 04-14-2022 11:11-0400 Body height 167.[address] Tonio Fajardo Work Phone: [facility] Work Phone: 04-14-2022 11:11-0400 Body mass index (BMI) [Ratio] 30.7 kg/m2 Dr. Tonio Fajardo Work Phone: [facility] Work Phone: 04-14-2022 11:11-0400 Body temperature 95.8 [degF] Dr. Tonio Fajardo Work Phone: [facility] Work Phone: 04-14-2022 11:11-0400 Body weight 86.[address] Tonio Fajardo Work Phone: [facility] Work Phone: 04-14-2022 11:11-0400 Diastolic blood pressure 68 mm[Hg] Dr. Tonio Fajardo Work Phone: [facility] Work Phone: 04-14-2022 11:11-0400 Heart rate 34 /min Dr. Tonio Fajardo Work Phone: [facility] Work Phone: 04-14-2022 11:11-0400 Respiratory rate 16 /min Dr. Tonio Fajardo Work Phone: [facility] Work Phone: 04-14-2022 11:11-0400 SaO2% (BldA) [Mass fraction] 91 % Dr. Tonio Fajardo Work Phone: [facility] Work Phone: 04-14-2022 11:11-0400 Systolic blood pressure 163 mm[Hg] Dr. Tonio Fajardo Work Phone: [facility] Work Phone: 04-14-2022 10:36-0400 Body temperature 96.7 [degF] Dr. Tonio Fajardo Work Phone: [facility] Work Phone: 04-14-2022 10:36-0400 Diastolic blood pressure 71 mm[Hg] Dr. Tonio Fajardo Work Phone: [facility] Work Phone: 04-14-2022 10:36-0400 Heart rate 64 /min Dr. Tonio Fajardo Work Phone: [facility] Work Phone: 04-14-2022 10:36-0400 Respiratory rate 23 /min Dr. Tonio Fajardo Work Phone: [facility] Work Phone: 04-14-2022 10:36-0400 SaO2% (BldA) [Mass fraction] 94 % Dr. Tonio Fajardo Work Phone: [facility] Work Phone: 04-14-2022 10:36-0400 Systolic blood pressure 153 mm[Hg] Dr. Tonio Fajardo Work Phone: [facility] Work Phone: 04-14-2022 08:24-0400 Body mass index (BMI) [Ratio] 30.2 kg/m2 Dr. Tonio Fajardo Work Phone: [facility] Work Phone: 04-14-2022 08:24-0400 Body weight 85.[address] Tonio Fajardo Work Phone: [facility] Work Phone: 04-12-2022 13:50-0400 Body temperature 97.8 [degF] Dr. Tonio Fajardo Work Phone: [facility] Work Phone: 04-12-2022 13:50-0400 Diastolic blood pressure 74 mm[Hg] Dr. Toino Fajardo Work Phone: [facility] Work Phone: 04-12-2022 13:50-0400 Heart rate 69 /min Dr. Tonio Fajardo Work Phone: [facility] Work Phone: 04-12-2022 13:50-0400 Respiratory rate 18 /min Dr. Tonio Fajardo Work Phone: [facility] Work Phone: 04-12-2022 13:50-0400 Systolic blood pressure 107 mm[Hg] Dr. Tonio Fajardo Work Phone: [facility] Work Phone: 04-05-2022 13:34-0400 Body temperature 101.61 [degF] Jessie Rodriguez APRN.CNP Work Phone: [facility] 04-05-2022 13:34-0400 Body weight 87.09 kg Jessie Praisler-[employer] FISHING WORKER.TECHNICAL INFORMATION SPECIALIST Work Phone: [facility] 04-05-2022 13:34-0400 Diastolic blood pressure 76 mm[Hg] Jessie Praisler-[employer] FISHING WORKER.TECHNICAL INFORMATION SPECIALIST Work Phone: [facility] 04-05-2022 13:34-0400 Heart rate 76 /min Jessie Praisler-[employer] FISHING WORKER.TECHNICAL INFORMATION SPECIALIST Work Phone: [facility] 04-05-2022 13:34-0400 Respiratory rate 16 /min Jessie Praisler-[employer] FISHING WORKER.TECHNICAL INFORMATION SPECIALIST Work Phone: [facility] 04-05-2022 13:34-0400 SaO2% (BldA) [Mass fraction] 94 % Jessie Praisler-[employer] FISHING WORKER.TECHNICAL INFORMATION SPECIALIST Work Phone: [facility] 04-05-2022 13:34-0400 Systolic blood pressure 122 mm[Hg] Jessie Praisler-[employer] FISHING WORKER.TECHNICAL INFORMATION SPECIALIST Work Phone: [facility] 03-01-2022 13:16-0400 Body temperature 97.6 [degF] Dr. Tonio Fajardo Work Phone: [facility] Work Phone: 03-01-2022 13:16-0400 Diastolic blood pressure 73 mm[Hg] Dr. Tonio Fajardo Work Phone: [facility] Work Phone: 03-01-2022 13:16-0400 Heart rate 70 /min Dr. Tonio Fajardo Work Phone: [facility] Work Phone: 03-01-2022 13:16-0400 Respiratory rate 18 /min Dr. Tonio Fajardo Work Phone: [facility] Work Phone: 03-01-2022 13:16-0400 Systolic blood pressure 141 mm[Hg] Dr. Tonio Fajardo Work Phone: [facility] Work Phone: 02-08-2022 13:06-0400 Body temperature 98.1 [degF] Dr. Tonio Fajardo Work Phone: [facility] Work Phone: 02-08-2022 13:06-0400 Diastolic blood pressure 63 mm[Hg] Dr. Tonio Fajardo Work Phone: [facility] Work Phone: 02-08-2022 13:06-0400 Heart rate 83 /min Dr. Tonio Fajardo Work Phone: [facility] Work Phone: 02-08-2022 13:06-0400 Respiratory rate 20 /min Dr. Tonio Fajardo Work Phone: [facility] Work Phone: 02-08-2022 13:06-0400 Systolic blood pressure 131 mm[Hg] Dr. Tonio Fajardo Work Phone: [facility] Work Phone: 01-17-2022 10:56-0400 Body height 167.[address] Tonio Fajardo Work Phone: [facility] Work Phone: 01-17-2022 10:56-0400 Body mass index (BMI) [Ratio] 31.9 kg/m2 Dr. Tonio Fajardo Work Phone: [facility] Work Phone: 01-17-2022 10:56-0400 Body weight 89.[address] Tonio Fajardo Work Phone: [facility] Work Phone: 01-17-2022 10:56-0400 Diastolic blood pressure 44 mm[Hg] Dr. Tonio Fajardo Work Phone: [facility] Work Phone: 01-17-2022 10:56-0400 Heart rate 64 /min Dr. Tonio Fajardo Work Phone: [facility] Work Phone: 01-17-2022 10:56-0400 Respiratory rate 22 /min Dr. Tonio Fajardo Work Phone: [facility] Work Phone: 01-17-2022 10:56-0400 SaO2% (BldA) [Mass fraction] 95 % Dr. Tonio Fajardo Work Phone: [facility] Work Phone: 01-17-2022 10:56-0400 Systolic blood pressure 101 mm[Hg] Dr. Tonio Fajardo Work Phone: [facility] Work Phone: 01-17-2022 10:56-0400 Body height 167.[address] Tonio Fajardo Work Phone: [facility] Work Phone: 01-17-2022 10:56-0400 Body mass index (BMI) [Ratio] 31.9 kg/m2 Dr. Tonio Fajardo Work Phone: [facility] Work Phone: 01-17-2022 10:56-0400 Body weight 89.[address] Tonio Fajardo Work Phone: [facility] Work Phone: 01-17-2022 10:56-0400 Diastolic blood pressure 44 mm[Hg] Dr. Tonio Fajardo Work Phone: [facility] Work Phone: 01-17-2022 10:56-0400 Heart rate 64 /min Dr. Tonio Fajardo Work Phone: [facility] Work Phone: 01-17-2022 10:56-0400 Respiratory rate 22 /min Dr. Tonio Fajardo Work Phone: [facility] Work Phone: 01-17-2022 10:56-0400 SaO2% (BldA) [Mass fraction] 95 % Dr. Tonio Fajardo Work Phone: [facility] Work Phone: 01-17-2022 10:56-0400 Systolic blood pressure 101 mm[Hg] Dr. Tonio Fajardo Work Phone: [facility] Work Phone: 01-04-2022 12:59-0400 Body temperature 96.4 [degF] Dr. Tonio Fajardo Work Phone: [facility] Work Phone: 01-04-2022 12:59-0400 Diastolic blood pressure 64 mm[Hg] Dr. Tonio Fajardo Work Phone: [facility] Work Phone: 01-04-2022 12:59-0400 Heart rate 70 /min Dr. Tonio Fajardo Work Phone: [facility] Work Phone: 01-04-2022 12:59-0400 Respiratory rate 16 /min Dr. Tonio Fajardo Work Phone: [facility] Work Phone: 01-04-2022 12:59-0400 Systolic blood pressure 135 mm[Hg] Dr. Tonio Fajardo Work Phone: [facility] Work Phone: 12-21-2021 13:10-0400 Body temperature 97 [degF] [facility] Work Phone: 12-21-2021 13:10-0400 Diastolic blood pressure 62 mm[Hg] [facility] Work Phone: 12-21-2021 13:10-0400 Heart rate 88 /min [facility] Work Phone: 12-21-2021 13:10-0400 Systolic blood pressure 173 mm[Hg] [facility] Work Phone: 12-18-2021 00:38-0400 Respiratory rate 16 /min [facility] Work Phone: 11-29-2021 13:03-0400 Body temperature 97.4 [degF] [facility] Work Phone: 11-29-2021 13:03-0400 Diastolic blood pressure 43 mm[Hg] [facility] Work Phone: 11-29-2021 13:03-0400 Heart rate 69 /min [facility] Work Phone: 11-29-2021 13:03-0400 Respiratory rate 16 /min [facility] Work Phone: 11-29-2021 13:03-0400 Systolic blood pressure 134 mm[Hg] [facility] Work Phone: 11-09-2021 13:07-0400 Body temperature 97 [degF] [facility] Work Phone: 11-09-2021 13:07-0400 Diastolic blood pressure 41 mm[Hg] [facility] Work Phone: 11-09-2021 13:07-0400 Heart rate 73 /min [facility] Work Phone: 11-09-2021 13:07-0400 Respiratory rate 18 /min [facility] Work Phone: 11-09-2021 13:07-0400 Systolic blood pressure 126 mm[Hg] [facility] Work Phone: Encounters Encounter Date Encounter Type Care Provider Facility Start: 04-02-2025 Patient encounter procedure Carmelina Parra -[facility] Start: 04-02-2025 ambulatory Tonio Fajardo Facility: [facility] Start: 03-27-2025 End: 03-27-[address] Tonio Fajardo DO Work Phone: -Pulmonary Services/Neurology Start: 03-27-2025 End: 03-27-2025 Patient encounter procedure Leslie DAMIAN -Pulmonary Services/Neurology Work Phone: Start: 03-27-2025 End: 03-27-2025 ambulatory Tonio Fajardo Facility:[facility] Start: 03-18-2025 End: 03-18-[address] Tonio Fajardo DO Work Phone: -Laboratory [facility] Start: 03-18-2025 End: 03-18-[address] Tonio Fajardo DO -[facility] Start: 03-17-2025 End: 03-17-2025 Patient encounter procedure Leslie Arriaga PA -[facility] Work Phone: Start: 03-17-2025 End: 03-18-[address] Tonio Fajardo DO Work Phone: -[facility] Start: 03-15-2025 End: 03-15-2025 Emergency department patient visit Dr. Tonio Fajardo DO Work Phone: -Emergency Department Work Phone: Start: 03-09-2025 Non-patient / Non-visit Dr. Deric Lantigua MD -[facility] Work Phone: Start: 03-09-2025 Non-patient / Non-visit Dr. Willian Glaser MD -[facility] Start: 03-08-2025 Non-patient / Non-visit Dr. Marjorie castellano MD [facility] Start: 03-07-2025 Non-patient / Non-visit Dr. Deric Lantigua MD -[facility] Work Phone: Start: 03-06-2025 Non-patient / Non-visit Dr. Deric Lantigua MD -[facility] Work Phone: Start: 03-06-2025 Non-patient / Non-visit Dr. Marjorie castellano MD -[facility] Start: 03-05-2025 ambulatory Marjorie Green Facility:[facility] Start: 03-05-2025 Non-patient / Non-visit Dr. Marjorie castellano MD -[facility] Start: 03-05-2025 Non-patient / Non-visit Dr. Deric Lantigua MD -[facility] Work Phone: Start: 03-04-2025 ambulatory [facility] Facility: [facility] Start: 03-04-2025 End: 03-09-2025 Evaluation and management of inpatient Dr. Nicola Lindsey DO -Progressive Care Unit Work Phone: Start: 11-06-[address] Russ Zamora MD -[facility] Start: 11-06-2024 End: 11-06-[address] Russ Zamora MD -[facility] Work Phone: Start: 11-06-2024 End: 11-06-2024 ambulatory [facility] Facility[facility] Start: 10-30-2024 End: 10-30-[address] Tonio Fajardo DO Work Phone: [facility] Work Phone: Start: 10-30-2024 End: 10-30-[address] Russ Zamora MD -[facility] Work Phone: Start: 10-30-2024 End: 10-30-2024 ambulatory Russ Zamora Facility:[facility] Start: 10-23-2024 End: 10-23-2024 Patient encounter procedure Lorie Mart [facility] Work Phone: Start: 10-23-2024 End: 10-23-2024 ambulatory [facility] Facility:[facility] Start: 10-20-2024 End: 10-20-[address] Tonio Fajardo DO Work Phone: [facility] Work Phone: Start: 10-20-2024 End: 10-20-[address] Tonio Fajardo DO -[facility] Start: 10-20-2024 End: 10-20-2024 ambulatory Tonio Fajardo Facility:[facility] Start: 10-17-2024 ambulatory Lorie Mart [employer] Fac ility:[facility] Start: 10-17-2024 Non-patient / Non-visit Dr. Tyrell zuniga DO -[facility] Start: 10-16-2024 End: 10-16-[address] Tonio Fajardo DO Work Phone: [facility] Work Phone: Start: 10-16-2024 End: 10-16-2024 Patient encounter procedure Lorie Mart [employer] [employer] -Pulmonary Services/Neurology Work Phone: Start: 10-16-2024 End: 10-16-2024 ambulatory Lorie Mart NP Facility:[facility] Start: 09-25-2024 End: 09-25-2024 Patient encounter procedure Leslie Arriaga PA -[facility] Work Phone: Start: 09-25-2024 End: 09-25-2024 ambulatory Tonio Fajardo Facility:[facility] Start: 09-25-2024 End: 09-25-2024 ambulatory Leslie DAMIAN Facility:[facility] Start: 07-03-2024 End: 07-03-[address] Joaquim Suárez DPM -Laboratory, Specimen Work Phone: Start: 07-03-2024 End: 07-03-2024 ambulatory Joaquim Suárez Facility:[facility] Start: 06-17-2024 End: 06-17-2024 ambulatory Tonio Fajardo Facility:[facility] Start: 05-05-2024 End: 05-05-2024 ambulatory Tonio Fajardo Facility:[facility] Start: 04-28-2024 End: 04-28-2024 ambulatory Russ [facility] Facility:[facility] Start: 12-24-2023 End: 12-24-[address] Tonio Fajardo Work Phone: [facility] Work Phone: Start: 12-24-2023 End: 12-24-[address] Tonio Fajardo Work Phone: [facility]-Laboratory, Specimen Work Phone: Start: 11-12-2023 End: 11-12-[address] Tonio Fajardo Work Phone: [facility] Work Phone: Start: 11-06-[address] Tonio Fajardo Work Phone: [facility] Start: 10-31-2023 End: 10-31-[address] Tonio Fajardo Work Phone: [facility] Work Phone: Start: 10-18-2023 End: 10-18-[address] Tonio Fajardo Work Phone: [facility] Work Phone: Start: 10-12-2023 End: 10-12-[address] Tonio Fajardo Work Phone: [facility] Work Phone: Start: 10-12-2023 End: 10-12-[address] Tonio Fajardo Work Phone: [facility] Work Phone: Start: 08-29-2023 End: 08-29-[address] Tonio Fajardo Work Phone: [facility] Work Phone: Start: 08-22-2023 Non-patient / Non-visit Dr. Min Fajardo Work Phone: [facility] Start: 08-22-2023 End: 08-22-[address] Tonio Fajardo Work Phone: [facility]-Cardiovascular Services Work Phone: Start: 07-26-2023 End: 07-26-[address] Tonio Fajardo Work Phone: [facility] Work Phone: Start: 07-26-2023 End: 07-26-[address] Tonio Fajardo Work Phone: [facility] Work Phone: Start: 07-25-2023 End: 07-25-[address] Tonio Fajardo Work Phone: [facility]-Pulmonary Medicine [facility] Work Phone: Start: 06-22-2023 End: 06-22-[address] Tonio Fajardo Work Phone: [facility] Work Phone: Start: 06-22-2023 End: 06-22-[address] Tonio Fajardo Work Phone: [facility]-Laboratory, Specimen Work Phone: Start: 06-08-2023 End: 06-08-2023 Admission to same day surgery center Dr. Tonio Fajardo Work Phone: [facility]-Surgical Day Care Start: 06-08-2023 End: 06-08-[address] Tonio Fajardo Work Phone: [facility] Work Phone: Start: 05-02-2023 End: 05-19-[address] Tonio Fajardo Work Phone: [facility]-Wound Healing Center Work Phone: Start: 04-20-2023 Non-patient / Non-visit Dr. Min Fajardo Work Phone: [facility] Start: 04-18-2023 End: 04-19-[address] Tonio Fajardo Work Phone: [facility] Work Phone: Start: 04-18-2023 End: 04-19-[address] [facility] Work Phone: Start: 04-17-[address] Tonio Fajardo Work Phone: [facility] Start: 04-17-2023 End: 04-17-[address] Tonio Fajardo Work Phone: [facility] Work Phone: Start: 04-10-2023 End: 04-10-[address] Tonio Fajardo Work Phone: [facility] Work Phone: Start: 04-10-2023 End: 04-10-[address] Tonio Fajardo Work Phone: [facility] Work Phone: Start: 04-02-2023 Non-patient / Non-visit Dr. Min Fajardo Work Phone: [facility] Start: 04-02-[address] Tonio F[facility]ardo [facility] Work Phone: Start: 03-19-2023 Non-patient / Non-visit Dr. Min Fajardo Work Phone: [facility] Start: 03-19-2023 End: 03-19-[address] Tonio Fajardo Work Phone: [facility] Work Phone: Start: 03-19-2023 End: 03-19-[address] Ton[facility] Fajardo [facility] Work [facility]: Start: 03-05-2023 Non-patient / Non-visit Dr. Min Fajardo Work Phone: [facility] Start: 02-23-2023 End: 02-23-[address] Tonio Fajardo Work Phone: [place] Work Phone: Start: 02-19-2023 Non-patient / Non-visit Dr. Min Fajardo Work Phone: [facility] Start: 02-05-2023 Non-patient / Non-visit Dr. Min Fajardo Work Phone: [facility] Start: 02-05-2023 End: 02-16-[address] Tonio Fajardo Work Phone: [facility] Work Phone: Start: 02-05-2023 End: 02-16-[address] Ton[facility]ardo [facility] Work [facility]: Start: 01-22-2023 Non-patient / Non-visit Dr. Min Fajardo Work Phone: [facility] Start: 01-08-2023 Non-patient / Non-visit Dr. Min Fajardo Work Phone: [facility] Start: 01-08-2023 End: 01-17-[address] Tonio Fajardo Work Phone: [facility] Work Phone: Start: 01-08-2023 End: 01-17-[address] Tonio Fajardo Work Phone: [facility] Start: 12-30-2022 End: 12-31-2022 Emergency department patient visit Dr. Tonio Fajardo Work Phone: [facility]-Emergency Department Start: 12-25-2022 Non-patient / Non-visit Dr. Min Fajardo Work Phone: [facility] Start: 12-25-[address] [facility] Start: 12-18-2022 Non-patient / Non-visit Dr. Min Fajardo Work Phone: [facility] Start: 12-12-2022 End: 12-12-[address] Tonio Fajardo Work Phone: [facility]-Pulmonary Medicine [facility] Start: 12-11-2022 Non-patient / Non-visit Dr. Min Fajardo Work Phone: [facility] Start: 12-11-2022 End: 12-17-[address] Tonio Fajardo Work Phone: [facility] Work Phone: Start: 12-11-2022 End: 12-17-[address] Tonio Fajardo [facility] Phone[facility] Start: 12-06-2022 Non-patient / Non-visit Dr. Min Fajardo Work Phone: [facility] Start: 11-27-2022 Non-patient / Non-visit Dr. Min Fajardo Work Phone: [facility] Start: 11-20-2022 Non-patient / Non-visit Dr. Min Fajardo Work Phone: [facility] Start: 11-08-2022 Non-patient / Non-visit Dr. Min Fajardo Work Phone: [facility] Start: 11-08-2022 End: 11-17-[address] Tonio Fajardo Work Phone: [facility] Start: 10-30-2022 Non-patient / Non-visit Dr. Min Fajardo Work Phone: [facility] Start: 10-23-2022 Non-patient / Non-visit Dr. Min Fajardo Work Phone: [facility] Start: 10-18-2022 Non-patient / Non-visit Dr. Min Fajardo Work Phone: [facility] Start: 10-16-[address] Tonio Fajardo Work Phone: [facility] Start: 10-16-2022 End: 10-16-[address] Tonio Fajardo Work Phone: [facility] Start: 10-09-2022 Non-patient / Non-visit Dr. Min Fajardo Work Phone: [facility] Start: 10-09-2022 End: 10-09-[address] Tonio Fajardo Work Phone: [facility] Start: 10-09-2022 End: 10-17-[address] Tonio Fajardo Work Phone: [facility] Work Phone: Start: 10-09-2022 End: 10-17-[address] Tonio Fajardo Work Phone: [facility] Start: 10-09-[address] [facility] Start: 10-02-2022 Non-patient / Non-visit Dr. Min Fajardo Work Phone: [facility] Start: 10-02-2022 End: 10-02-[address] Tonio Fajardo Work Phone: [facility] Start: 09-25-2022 Non-patient / Non-visit Dr. Min Fajardo Work Phone: [facility] Start: 09-18-2022 Non-patient / Non-visit Dr. Min Fajardo Work Phone: [facility] Start: 09-18-2022 End: 09-19-[address] Tonio aFjardo Work Phone: [facility] Work Phone: Start: 09-18-2022 End: 09-19-[address] Tonio Fajardo [facility] Phone[facility] Start: 08-29-2022 Non-patient / Non-visit Dr. Min Fajardo Work Phone: [facility] Start: 08-15-2022 Non-patient / Non-visit Dr. Min Fajardo Work Phone: [facility] Start: 08-15-2022 End: 08-19-[address] Tonio Fajardo Work Phone: [facility] Work Phone: Start: 08-15-2022 End: 08-19-[address] Tonio Fajardo [facility] Phone[facility] Start: 08-08-2022 End: 08-08-[address] Tonio Fajardo Work Phone: [facility] Start: 08-01-2022 Non-patient / Non-visit Dr. Min Fajardo Work Phone: [facility] Start: 07-28-2022 Telephone encounter Jessie Parra [facility] Work Phone: [facility] Comment on above: Patient Update Start: 07-19-2022 End: 07-19-[address] Tonio Fajardo Work Phone: [facility] Start: 07-18-2022 Non-patient / Non-visit Dr. Min Fajardo Work Phone: [facility] Start: 07-18-2022 End: 07-19-[address] Tonio Fajardo Work Phone: [facility] Work Phone: Start: 07-18-2022 End: 07-19-[address] Tonio Fajardo Work Phone: [facility] Start: 07-17-2022 End: 07-17-[address] Tonio Fajardo Work Phone: [facility] Start: 07-09-[address] Tonio Fajardo Work Phone: [facility]iation On[facility] Start: 07-09-2022 Non-patient / Non-visit Dr. Min Fajardo Work Phone: [facility] Start: 07-05-2022 End: 07-05-[address] Tonio Fajardo Work Phone: [facility] Start: 06-28-2022 End: 06-28-[address] Tonio Fajardo Work Phone: [facility] Start: 06-26-2022 Non-patient / Non-visit Dr. Min Fajardo Work Phone: [facility] Start: 06-21-2022 End: 06-21-[address] Tonio Fajardo Work Phone: [facility] Start: 06-19-[address] Ton[facility]ajardo [facility] Start: 06-14-2022 End: 06-14-[address] Tonio Fajardo Work Phone: [facility] Start: 06-12-2022 Non-patient / Non-visit Dr. Min Fajardo Work Phone: [facility] Start: 06-12-2022 End: 06-19-[address] Tonio Fajardo Work Phone: [facility] Work Phone: Start: 06-12-2022 End: 06-19-[address] Tonio Fajardo Work Phone: [facility] Start: 06-06-2022 Non-patient / Non-visit Dr. Min Fajardo Work Phone: [facility] Start: 06-02-2022 Non-patient / Non-visit Dr. Min Fajardo Work Phone: [facility] Start: 06-02-2022 End: 06-02-[address] Tonio Fajardo Work Phone: [facility] Work Phone: Start: 06-02-2022 End: 06-02-[address] Tonio Fajardo Work Phone: [facility]-Pulmonary Services/Neurology Start: 06-01-2022 Non-patient / Non-visit Dr. Min Fajardo Work Phone: [facility] Start: 06-01-[address] Tonio Fajardo [facility] Start: 05-30-[address] Tonio Fajardo Work Phone: [facility] Start: 05-30-2022 End: 05-30-[address] Tonio Fajardo Work Phone: [facility] Start: 05-29-2022 Non-patient / Non-visit Dr. Min Fajardo Work Phone: [facility] Start: 05-29-[address] Tonio Fajardo Work Phone: [facility] Start: 05-24-2022 End: 05-24-[address] Tonio Fajardo Work Phone: [facility] Start: 05-24-2022 Non-patient / Non-visit Dr. Min Fajardo Work Phone: [facility] Start: 05-24-[address] Tonio Fajardo Work Phone: [facility] Start: 05-22-2022 End: 05-22-[address] Tonio Fajardo Work Phone: [facility] Work Phone: Start: 05-22-2022 End: 05-22-[address] Tonio Fajardo Work Phone: [facility] Start: 05-17-2022 Non-patient / Non-visit Dr. Min Fajardo Work Phone: [facility] Start: 05-17-2022 End: 05-19-[address] Tonio Fajardo Work Phone: [facility] Work Phone: Start: 05-17-2022 End: 05-19-[address] Tonio Fajardo Work Phone: [facility] Start: 05-17-[address] Tonio Fajardo Work Phone: [facility] Start: 05-11-2022 End: 05-11-[address] Tonio Fajardo Work Phone: [facility] Start: 05-11-2022 End: 05-11-[address] Tonio Fajardo [facility] Start: 04-28-2022 Non-patient / Non-visit Dr. Min Fajardo Work Phone: [facility] Start: 04-28-2022 End: 04-28-[address] Tonio Fajardo Work Phone: [facility] Work Phone: Start: 04-28-2022 End: 04-28-[address] Tonio Fajardo Work Phone: [facility] Start: 04-26-[address] Tonio Fajardo Work Phone: [facility] Start: 04-14-2022 End: 04-14-[address] Tonio Fajardo Work Phone: [facility] Work Phone: Start: 04-14-2022 End: 04-14-[address] Tonio Fajardo Work Phone: [facility]Laboratory, [facility] Start: 04-14-2022 End: 04-14-2022 Emergency department patient visit Dr. Tonio aFjardo Work Phone: [facility]Emergency [facility] Start: 04-12-2022 End: 04-12-[address] Tonio Fajardo Work Phone: [facility] Work Phone: Start: 04-12-2022 End: 04-12-[address] Tonio Fajardo Work Phone: [facility] Start: 04-12-2022 End: 04-19-[address] Tonio Fajardo Work Phone: [facility] Work Phone: Start: 04-12-2022 End: 04-19-[address] Tonio Fajardo Work Phone: [facility] Start: 04-12-[address] Tonio Fajardo Work Phone: [facility] [place] Start: 04-06-2022 Telephone encounter Derek Rivera MD Work Phone: [facility] Comment on above: Results (COVID+) Start: 04-05-2022 End: 04-05-2022 ambulatory TONIO FAJARDO Facility:[facility] Start: 04-05-2022 Telephone encounter Jessie Prara APRN.TECHNICAL INFORMATION SPECIALIST Work Phone: [facility] Comment on above: Results Start: 04-05-2022 End: 04-05-2022 Subsequent hospital visit by physician [facility] Work Phone: Radiology Comment on above: Acute cough [R05.1] Start: 04-05-2022 End: 04-05-2022 Patient encounter procedure Jessie Rodriguez APRN.TECHNICAL INFORMATION SPECIALIST Work Phone: [facility] Comment on above: Burning with urinati on (Primary Dx); Acute cough; Suspected COVID-19 virus infection Start: 03-01-2022 End: 03-19-[address] Tonio F[facility] Start: 02-08-2022 End: 02-16-[address] Tonio Fajardo [facility] Phone[facility] Start: 01-17-2022 End: 01-17-[address] Tonio Fajardo Work Phone: [facility] Start: 01-04-2022 End: 01-17-[address] Tonio Fajardo [facility] Phone[facility] Start: 12-21-2021 Registered Recurring [facility] Start: 12-19-2021 End: 12-19-2021 [facility] Start: 11-29-2021 End: 12-17-2021 [facility] Start: 11-09-2021 End: 11-17-2021 [facility] Procedures Date Procedure Procedure Detail Performing [...] Phone: Comment on above: Sent directly to [facility] per ordering physician. Start: 12-24-2023 Investigation [...] exam ches t 2 views Jessie Rodriguez FISHING WORKER.TECHNICAL INFORMATION SPECIALIST Work Phone: Start: 04-05-2022 Urnls dip stick/tabl et rgnt auto w/o microscopy Onelia Cuevas FISHING WORKER.TECHNICAL INFORMATION SPECIALIST Work Phone: Start: 11-02-2021 X-ray of both [...] Detail Author Start: 03-27-2025 24 Hour ECG [facility] Start: 03-15-2025 [facility] Start: 03-15-2025 Control nasal hemorr min anterior simple CONTROL OF NOSEBLEED [facility] Start: 03-09-2025 Referral to service [facility] Start: 03-09-[address] [facility] Start: 03-08-2025 Application of elast ic bandage [facility] Start: 03-07-2025 Introduction of urin dakota catheter [facility] Start: 03-06-2025 Inhalation therapy procedure [facility] Start: 03-05-2025 [facility] Start: 03-05-2025 Care planning and pr oblem solving actions [facility] Start: 03-05-2025 Chest 1 View (Portable) Chest 1 View (Portable) [facility] Start: 03-05-2025 XR Chest Single view [facility] Start: 03-05-2025 Care planning and pr oblem solving actions [facility] Start: 03-04-2025 Following clinical p athway protocol [facility] Start: 03-04-2025 Assessment of risk o f venous thromboembolism [facility] Start: 03-04-2025 Care regimes management [facility] Start: 03-04-2025 Catheterization of vein [facility] Start: 03-04-2025 Insertion of cathete r into peripheral vein [facility] Start: 03-04-2025 Measuring intake and output [facility] Start: 03-04-2025 Notification of physician [facility] Start: 03-04-2025 Oxygen therapy [facility] Start: 03-04-2025 Providing care accor ding to standard [facility] Start: 03-04-2025 Provision of activit y privileges [facility] Start: 03-04-2025 Referral to ophthalmic technologist [facility] Start: 03-04-2025 Referral to occupati onal therapist [facility] Start: 03-04-2025 Referral to service [facility] Start: 03-04-2025 End: 03-04-2025 [facility] Start: 03-04-2025 Hospital admission, emergency, from emergency room, medical nature [facility] Start: 03-04-2025 Verification routine [facility] Start: 03-04-2025 Admission procedure [facility] Start: 03-04-2025 Thyroid stimulating hormone measurement [facility] Start: 03-04-2025 [facility] Start: 03-04-2025 Patient referral to dietitian [facility] Start: 04-20-2024 Covid-19 Vaccine ( season) Covid-19 Vaccine ( season) [facility] Start: 04-20-2024 Influenza vaccination Influenza Vacc ine (#1) [facility] Start: 08-20-2023 Advance Directive Discussion Advance Directive Discussion [facility] Start: 06-22-2023 [facility] Start: 06-08-[address] [facility] Start: 06-08-2023 Anes open proc bones lower leg/ankle/foot nos ANESTH LOWER LEG BONE SURG [facility] Start: 06-08-2023 Osteot w/wo lngth shrt/corrj 1st metar INCISION OF METATARSAL [facility] Start: 06-08-2023 Prep site f/s/n/h/f/ g/m/d gt 1st 100 sq cm/1pct WOUND PREP F/N/HF/G [facility] Start: 06-08-2023 Sub grft f/s/n/h/f/g /m/d <100sq cm 1st 25 sq cm SKIN SUB GRAFT FACE/NK/HF/G [facility] Start: 06-08-2023 Fluoroscopic guidance O.R. Fluoro fo r C-Arm [facility] Start: 06-08-2023 Radiography of foot Foot 2 Views [facility] Start: 12-30-2022 [facility] Start: 12-30-2022 End: 12-30-2022 Blood culture [facility] Start: 12-30-2022 End: 12-30-2022 [facility] Start: 10-16-2022 CBC W Auto Different ial panel - Blood [facility] Start: 10-16-2022 Lactate dehydrogenas e measurement [facility] Start: 10-16-2022 End: 10-16-2022 [facility] Start: 07-18-2022 [facility] Work Phone: Start: 05-18-2022 [facility] Work Phone: Start: 05-11-2022 Patient referral [facility] Work Phone: Start: 04-28-2022 CORE NDL BX LNG/MED PERQ CORE NDL BX LNG/MED PERQ [facility] Work Phone: Start: 04-28-2022 Following clinical p athway protocol [facility] Work Phone: Start: 04-28-2022 Catheterization of vein [facility] Work Phone: Start: 04-28-2022 Oxygen therapy [facility] Work Phone: Start: 04-28-[address] [facility] Work Phone: Start: 04-28-2022 Vital signs measurements [facility] Work Phone: Start: 04-20-2022 Influenza vaccination INFLUENZA (#1) [facility] Start: 04-05-2022 End: 04-19-2022 Influenza virus A and B RNA and SARS-CoV-2 (COVID-19) N gene panel - Respiratory specimen by BRYAN with probe detection [facility] Work Phone: Comment on above: Expected: 04/05/2022 , Expires: 04/19/2022 Start: 08-20-2021 ADVANCE DIRECTIVE DISCUSSION ADVANCE DIRECTIVE DISCUSSION [facility] Start: 08-20-2021 DEPRESSION ASSESSMENT DEPRESSION ASS ESSMENT [facility] Start: 05-04-2021 COVID-19 VACCINE (3 - Booster for Moderna series) COVID-19 VACCINE (3 - Booster for Moderna series) [facility] Start: 01-27-2021 COVID-19 VACCINE (3 - Booster for Moderna series) COVID-19 VACCINE (3 - Booster for Moderna series) [facility] Start: 01-15-2020 RSV Vaccine (1 - 1-d ose 75+ series) RSV Vaccine (1 - 1-dose 75+ series) [facility] Start: 12-01-2018 DIABET[facility]CREEN [facility] Start: 12-01-2018 Diabetes Screening Diabetes Screenin g [facility] Start: 2010 Pneumococcal Vaccine : 65+ (1 of 1 - PCV) Pneumococcal Vaccine: 65+ (1 of 1 - PCV) [facility] Start: 2010 PNEUMOCOCCAL: 65+ (1 - PCV) PNEUMOCOCCAL: 65+ (1 - PCV) [facility] Start: 1995 SHINGRIX VACCINE (1 of 2) HEIN GRIX VACCINE (1 of 2) [facility] Start: 01-15-1964 Urine microalbumin profile [facility] Start: 1963 Anxiety Screening Anxiety Screening [facility] Start: 1963 Depression Screening Depression Scre ening [facility] Start: 1963 HEPATITIS C SCREENING HEPATITIS C SC REENING [facility] Start: 1957 Adult depression scr eening assessment [facility] 24 Hour ECG [facility] Alanine aminotransfe rase [Enzymatic activity/volume] in Serum or Plasma [facility] Albumin [Mass/volume ] in Serum or Plasma [facility] Alkaline phosphatase [Enzymatic activity/volume] in Serum or Plasma [facility] Anaerobic Culture Anaerobic Culture [facility] Work Phone: Anion gap measurement [facility] Aspartate aminotrans ferase [Enzymatic activity/volume] in Serum or Plasma [facility] Bacteria identified in Blood by Culture Blood Culture [facility] Bacteria identified in Unspecified specimen by Anaerobe culture [facility] Work Phone: Bacteria identified in Urine by Culture URINE CULTURE Microbiology Routine Burning with urination 04/05/2022 1:58 PM EDT [facility] Work Phone: Bacteria identified in Urine by Culture Urine Culture [facility] Bilirubin, total measurement [facility] BUN/Creatinine ratio [facility] Calcium [Mass/volume ] in Serum or Plasma [facility] Carbon dioxide, tota l [Moles/volume] in Serum or Plasma [facility] CBC W Auto Different ial panel - Blood [facility] Work Phone: CBC W Auto Different ial panel - Blood [facility] CBC W Auto Different ial panel - Blood [facility] Chloride [Moles/volu me] in Serum or Plasma [facility] Creatinine [Moles/vo lume] in Serum or Plasma [facility] CT Chest and Abdomen W contrast IV [facility] CT Chest W contrast IV [facility] Work Phone: CT Chest W contrast IV [facility] Glucose [Mass/volume ] in Serum or Plasma [facility] Hematocrit [Volume Fraction] of Blood [facility] Hemoglobin [Mass/vol ume] in Blood [facility] Hemoglobin A1c/Hemoglobin.total in Blood [facility] Lactate dehydrogenas e measurement [facility] Lactate dehydrogenas e measurement [facility] LDH [facility] Work Phone: Leukocytes [#/volume ] in Blood [facility] Magnesium measurement [facility] Mean corpuscular hemoglobin concentration determination [facility] Mean corpuscular hemoglobin determination [facility] Measurement of renal function [facility] Microbial culture, routine Wound Culture [facility] Work Phone: MR Brain WO and W co ntrast IV [facility] Work Phone: Natriuretic peptide. B prohormone N-Terminal [Mass/volume] in Serum or Plasma [facility] Neutrophil count [facility] Neutrophil percent differential count [facility] Patient Education [facility] Work Phone: Patient referral [facility] Work Phone: Platelets [#/volume] in Blood [facility] Positron emission tomography with computed tomography [facility] Work Phone: Potassium [Moles/vol ume] in Serum or Plasma [facility] Procedure [facility] PT Unspecified body region W [facility] Radiation oncology A ND/OR radiotherapy [facility] Work Phone: Radiation oncology A ND/OR radiotherapy [facility] Red blood cell count [facility] Red cell distributio n width determination [facility] Sodium [Moles/volume ] in Serum or Plasma [facility] Total protein measurement [facility] Urea nitrogen [Mass/volume] in Serum or Plasma [facility] Immunizations Immunization Date Immunization Notes Care Provider Fa [facility] 08-03-2014 influenza virus vaccine, unspecified formulation [facility] Work Phone: [facility] 06-20-2013 Influenza virus vaccine [facility] 06-20-2013 Pneumococcal Vaccine [facility] Work Phone: 06-20-2013 pneumococcal vaccine , unspecified formulation Dr. Tonio Fajardo Work Phone: [facility] Payers Date Payer Category Payer Self-pay [id number] 2009 Medicare [id number] 2009 Medicare MEDICARE MEDICAR E A AND B [id number] 2009-Present [phone] [place] [address] Medicare [id number] 2009 [employer] ( and others) [id number] 2009 Unknown FOR LIFE [id number] 2009-Present [phone] [address] [place] [address] Indemnity [id number] Unknown [id number] 2.16.840.1.667719.3.579. 2.462 Unknown [id number] 2.16.840.1.704897.3.579. 2.462 Unknown [id number] 2.16.840.1.347577.3.579. 2.462 Unknown [id number] 2.16.840.1.714146.3.579. 2.462 Unknown [id number] 2.16.840.1.239427.3.579. 2.462 Unknown [id number] 2.16.840.1.098483.3.579. 2.462 Unknown [id number] 2.16.840.1.295969.3.579. 2.462 Unknown [id number] 2.16.840.1.586796.3.579. 2.462 Unknown [id number] 2.16.840.1.344350.3.579. 2.462 Unknown [id number] 2.16.840.1.715635.3.579. 2.462 Unknown [id number] 2.16.840.1.473709.3.579. 2.462 Unknown [id number] 2.16.840.1.320319.3.579. 2.462 Unknown [id number] 2.16.840.1.091829.3.579. 2.462 Unknown [id number] 2.16.840.1.888400.3.579. 2.462 Unknown [id number] 2.16.840.1.073194.3.579. 2.462 Unknown [id number] 2.16.840.1.465854.3.579. 2.462 Unknown [id number] 2.16.840.1.719781.3.579. 2.462 Unknown [id number] 2.16.840.1.305380.3.579. 2.462 Unknown [id number] 2.16.840.1.978273.3.579. 2.462 Unknown [id number] 2.16.840.1.363629.3.579. 2.462 Unknown [id number] 2.16.840.1.938113.3.579. 2.462 Unknown [id number] 2.16.840.1.385038.3.579. 2.462 Unknown [id number] 2.16.840.1.038333.3.579. 2.462 Unknown [id number] 2.16.840.1.936922.3.579. 2.462 Unknown [id number] 2.16.840.1.609794.3.579. 2.462 Unknown [id number] 2.16.840.1.107058.3.579. 2.462 Unknown [id number] 2.16.840.1.487485.3.579. 2.462 Unknown [id number] 2.16.840.1.661253.3.579. 2.462 Unknown [id number] 2.16.840.1.935659.3.579. 2.462 Social History Date Type Detail Facility Start: 01-06-2021 End: 10-31-2023 Tobacco smoking status NHIS Unknown if ever smoked [facility] Start: 08-27-2013 None [facility] Start: 03-18-2014 Spouse/ Signif icant Other [facility] Start: 06-20-2014 Non-smoker [facility] Start: 1945 Sex Assigned At Male W [facility] Start: 04-05-2022 End: 03-15-2025 Tobacco smoking status NHIS Ex-smoker [facility] Work Phone: History of tobacco use Current smoker [facility] Work Phone: History of tobacco use Cigarette Smoker [facility] Work Phone: Start: 04-05-2022 Tobacco use and exposure Former smokeless tobacco user [facility] Work Phone: Start: 1945 Sex Assigned At Not on file [facility] Start: 03-26-2022 End: 04-05-2022 Exposure to SARS-CoV-2 (event) Not sure [facility] Work Phone: Start: 04-05-2022 History of Social function [facility] Start: 04-05-2022 Tobacco use panel [facility] Start: 10-30-2024 End: 11-10-2024 Sex Male (finding) [facility] Medical Equipment Procedure Code Equipment Code Equipment [...] Assessment Result Facility 03-09-2025 Functional status [facility] Work Phone: Mental Status Date Assessment Result Facility 03-09-2025 Cognitive function Voice/Name [facility] Work Phone: 06-08-2023 Cognitive function Voice/Name [facility] Work Phone: 12-30-2022 Cognitive function Level Of Cons ciousness Awake;Alert;Appropriate;Follow s Commands [facility] Work Phone: 04-28-2022 Cognitive function Voice/Name [facility] Work Phone: 04-14-2022 Cognitive function Level Of Cons ciousness Awake;Appropriate;Follows Commands;Drowsy [facility] Work Phone: Clinical Notes 04-05-2022 to 03-15-2025 Note Date & Type Note Facility 03-15-2025 Discharge summary [facility] 03-15-2025 Discharge summary Note Date/Time March 15, 2025 6:22pm [facility] Medical Records Department [address] [place] [address] Emergency Department Summary 03/15/25 MR#: [id number] Acct: [id number] Name: PEDRO HILLMAN Rep #:[id number] : 1945 80 From: Alex Matias MD PCP: Dr. Tonoi Fajardo, DO Status:REG ER Location: ED HPI [...] similar symptoms: Yes Recent Illness/Hospitalization: Yes (CHF) [facility] Medical History Other persistent atrial fibrillation New onset atrial flutter DIMA Wears hearing aid in both ears Former smoker Coronary artery disease Peripheral vascular occlusive disease BPH (benign prostatic hyperplasia) Chronic kidney disease, stage 3 Atherosclerosis of coronary artery of andreafski heart without angina pectoris Hyperlipidemia Lower extremity [...] 4 doses of apixaban, Eliquis Print Language: Yakut Disposition Disposition: Home, Self Care What to do if you have Problems For any increased pain, shortness of breath, bleeding, nausea or vomiting, chestpain, or any unexpected problems, contact your Primary Care Provider. Call [facility] ([phone]) or report to the closest Emergency Room. Call 911 if necessary. 03/15/251821 <Electronically signed by Alex Matias MD> Cosigner Signature (if applicable): CC: Dr. Tonio Fajardo DO ~ Signed [facility] Work Phone: 1(707) 868-442807-27-2025 Hospital Discharge instructionsAdditional Instructions 1. Hold the next 4 doses of apixaban, Eliquis. 2. Take amoxicillin as prescribed until gone 3. Contact Dr. Vasquez's office in the morning to be seen later this week to have the pack removed.[facility] Work Phone: 1(181) 873-628907-21-2025 Consult note [facility] Medical Records Department [address] [place] [address] Counseling Note - Pharmacy 03/09/25 6606 MR#: [id number] Acct: [id number] Name: PEDRO HILLMAN Rep #:[id number] : 1945 80 From: Mala Diamond PCP: Dr. Tonio Fajardo DO Status:ADM IN Y Location: [facility] [id number] Pharmacy DC Med Rec Counseling Pharmacy [...] Amos Signature (if applicable): CC: ~ Signed [facility]07-21-2025 Discharge summary Author Deric Lantigua [facility] Note Date/Time March 09, 2025 12:5 2pm [facility] Medical Records Department [address] [place] [address] Discharge Summary 03/09/25 1251 MR#: [id number] Acct: [id number] Name: KADYPEDRO Nora Rep #:[id number] : 1945 80 From: Deric Smith PCP: Dr. Tonio Fajardo DO Status:ADM IN Location: [place] [address] Providers Date of Admission: 03/04/25 Date of Discharge: 03/09/25 Primary Care Physician: Dr. Tonio Fajardo DO Consultations 03/04/25 21:21 Consult: Cardiology Routine Consulting Provider: [facility] Reason for Consult: AE CHF, a flutter [...] Code(s): I25.10 - Atherosclerotic heart disease of andreafski coronary artery without angina pectoris Qualifiers: Coronary Disease-Associated Artery/Lesion type: andreafski artery [place] vs. transplanted heart: andreafski heart Associated angina: without angina Qualified Code(s): I25.10 - Atherosclerotic heart disease of andreafski coronary artery without angina pectoris (3) Chronic anticoagulation: Status: Acute Code(s): Z79.01 - correction (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 of anticoagulants Plan 80-year-old gentleman [...] no significant delta change. ACS ruled out. Patch Washer is consulted. Repeat proBNP is elevated but [...] conduction. Later on irregular variable conduction on receiving operator 03/06: Discussed with the ophthalmic technologist. Metoprolol increased to 25 mg twice daily, [...] pressure in the 90s. Discussed with the ophthalmic technologist. Advised to discontinue to discontinue metoprolol and [...] the CODE STATUS. 03/09: Discussed with the ophthalmic technologist.Patient heart rate controlled in 70s. Yesterday rate was in 80s. Patient tolerated Cardizem 30 mg every 8 hourly therefore discharged on Cardizem CD 120 mg. I called patient's vwikifqc-ys-mfn and explained the medication. Patch Washer felt probably does not need even pacemaker. [...] at the right lung base. Reading Location: [facility] Echocardiogram 03/04/25 20:08 Interpretation Summary Moderate concentric [...] in right lung base aeration. [facility] Medications at Discharge Home Medications insulin glargine [...] 03/05/25 14:17 SB (Rec: 03/05/25 14:17 SB [id number]) Nutrition Malnutrition Evidence of Yes Malnutrition Exists [...] (Auto) 72.6 H, Lymph % (Auto) 9.7L, Concho % (Auto) 12.1 H, Eos % (Auto) [...] Self Care Charges/Coding Visit Charges Inpatient E&M: 92051 Disch Hosp >30min 03/09/25 1252 <Electronically signed by Deric Lantigua MD> Cosigner Signature (if applicable): CC: Dr. Tonio Fajardo DO; Dr. Willian Glaser MD; Dr. Deric Lantigua MD~ Signed [facility] Work Phone: 1(280) 527-591907-21-2025 Discharge summary Author Deric Lantigua [facility] Note Date/Time March 09, 2025 12:4 4pm [facility] Medical Records Department [address] [place], [place] [address] [place] [address] Instructions for Home/Discharge Instructions 03/09/25 1031 MR#: [id number] Acct: [id number] Name: PEDRO HILLMAN Rep #:[id number] : 1945 80 From: Deric Smith PCP: [...] MD; RICKIE Kumari; RICKIE Cummins ~ Signed [facility] Work Phone: 1(191) 466-787607-21-2025 Hospital Discharge instructionsAdditional Instructions Discharge with Claudio catheter. Date [facility]: [facility]: 1(895) 962-922907-21-2025 Discharge summary [facility] Medical Records Department [address] [place] [address] Discharge Summary 03/09/25 1251 MR#: [id number] Acct: [id number] Name: PEDRO HILLMAN Rep #:[id number] : 1945 80 From: Deric Smith PCP: Dr. Tonio Fajardo DO Status:ADM IN Location: [place] [address] Providers Date of Admission: 03/04/25 Date of Discharge: 03/09/25 Primary Care Physician: Dr. Tonio Fajardo DO Consultations 03/04/25 21:21 Consult: Cardiology Routine Consulting Provider: [facility] Reason for Consult: AE CHF, a flutter [...] Code(s): I25.10 - Atherosclerotic heart disease of andreafski coronary artery without angina pectoris Qualifiers: Coronary Disease-Associated Artery/Lesion type: andreafski artery [place] vs. transplanted heart: nativeheart Associated angina: without angina Qualified Code(s): I25.10 - Atherosclerotic heart disease of andreafski coronary artery without angina pectoris (3) Chronic anticoagulation: Status: Acute Code(s): Z79.01 - intermediate designer (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 of anticoagulants Plan 80-year-old gentleman [...] no significant delta change. ACS ruled out. Patch Washer is consulted. Repeat proBNP is elevated but [...] conduction. Later on irregular variable conduction on receiving operator 03/06: Discussed with the ophthalmic technologist. Metoprolol increased to 25 mg twice daily, Cardizem 60 mg [id number]. If heart rate controlled, will switch to [...] pressure in the 90s. Discussed with the ophthalmic technologist. Advised to discontinue to discontinue metoprolol and [...] the CODE STATUS. 03/09: Discussed with the ophthalmic technologist.Patient heart rate controlled in 70s. Yesterday rate was in 80s. Patient tolerated Cardizem 30 mg every 8 hourly therefore discharged on Cardizem CD 120 mg. I called patient's kqhuqpce-ws-prr and explained the medication. Patch Washer felt probably does not need even pacemaker. [...] at the right lung base. Reading Location: [facility] Echocardiogram 03/04/25 20:08 Interpretation Summary Moderate concentric [...] in right lung base aeration. Reading Location: [place] [address] Medications at Discharge Home Medications insulin glargine [...] 03/05/25 14:17 SB (Rec: 03/05/25 14:17 SB [id number]) Nutrition Malnutrition Evidence of Yes Malnutrition Exists [...] (Auto) 72.6 H, Lymph % (Auto) 9.7L, Concho % (Auto) 12.1 H, Eos % (Auto) [...] Mitchell; Reinaldo Mclain; Santos Hsu; Iker Rodriguez FAIRING MAN; Leslie Arriaga PA; Tadeo Thakkar Instructions Additional [...] Self Care Charges/Coding Visit Charges Inpatient E&M: 59519 Disch Hosp >30min 03/09/25 1252 Cosigner Signature (if applicable): CC: Dr. Tonio Fajardo DO; Dr. Willian Glaser MD; Dr. Deric Lantigua MD~ Signed [facility]07-21-2025 [facility]07-21-2025 Discharge summary [facility] Medical Records Department [address] [place] [address] Instructions for Home/Discharge Instructions 03/09/25 1031 MR#: [id number] Acct: [id number] Name: PEDRO HILLMAN Rep #:[id number] : 1945 80 From: Deric Smith PCP: [...] Self Care 03/09/25 1244Pmaribel Lantigua MD CC: FAIRING MAN-Estevan Rodriguez; Dr. Susan Hawley MD; Dr. Prais Tiwari MD; Dr. Marjorie Green MD; Dr. Nicolette Mcdonald MD; Dr. Martin Vivas MD; Dr. Jose Lai MD; Dr. Issa Looney MD; Dr. Nicola Lindsey DO; Dr. Chago Miller MD; Dr. Tonio Fajardo DO; Dr. Willian Glaser MD; Dr. Orly Mitchell MD;Dr. Santos Hsu MD; Dr. Reinaldo Mclain MD; RICKIE Kumari; RICKIE Cummins ~ Signed [facility]07-21-2025 Progress note Author Willian Glaser [facility] Note Date/Time March 09, 2025 9:53 am [facility] Medical Records Department [address] [place] [address] Progress Note - Cardiology 03/09/25 0943 MR#: [id number] Acct: [id number] Name: PEDRO HILLMAN Rep #:[id number] : 1945 80 From: Willian Glaser MD PCP: Dr. Tonio Fajardo, DO Status:ADM IN Location: [place] [address] Subjective Subjective Patient evaluated in a seated [...] (Auto) 72.6 H, Lymph % (Auto) 9.7L, Concho % (Auto) 12.1 H, Eos % (Auto) [...] 72.6 H, Lymph % (Auto) 9.7 L, Concho % (Auto) 12.1 H, Eos % (Auto) [...] disease: QUALIFIERS: Coronary Disease-Associated Artery/Lesion type: nativeartery [place] vs. transplanted heart: andreafski heart Associated angina: without angina Qualified Code(s): I25.10 - Atherosclerotic heart disease of andreafski coronary artery without angina pectoris PLAN: Patient carries a history of bypass graft surgery followed in the [facility]. The patient should be reevaluated in 2 to 4 weeks in the [facility] with advanced practitioner. Given the patient's [...] At discharge patient should follow-up with the [facility] advanced practitioner in 2 to 3 weeks. 4. If further assistance is needed please reconsult the [facility]. Charges/Coding Visit Charges Inpatient E&M: 44797 Subs Hosp L3 03/09/25 0953 <Electronically signed by Willain Glaser MD> Cosigner Signature (if applicable): CC: ~ Signed [facility] Work Phone: 1(507) 551-940507-21-2025 Progress note [facility] Medical Records Department [address] [place] [address] Progress Note - Cardiology 03/09/2543 MR#: [id number] Acct: [id number] Name: PEDRO HILLMAN #:[id number] : 1945 80 From: Willian Glaser MD PCP: Dr. Tonio Fajardo, DO Status:ADM IN Location: [address] Subjective Subjective Patient evaluated in [...] (Auto) 72.6 H, Lymph % (Auto) 9.7L, Concho % (Auto) 12.1 H, Eos % (Auto) [...] 72.6 H, Lymph % (Auto) 9.7 L, Concho % (Auto) 12.1 H, Eos % (Auto) [...] disease: QUALIFIERS: Coronary Disease-Associated Artery/Lesion type: nativeartery [place] vs. transplanted heart: andreafski heart Associated angina: without angina Qualified Code(s): I25.10 - Atherosclerotic heart disease of andreafski coronary artery without angina pectoris PLAN: Patient carries a history of bypass graft surgery followed in the [facility]. The patient should be reevaluated in 2 to 4 weeks in the [facility] with advanced practitioner. Given the patient's recovery [...] At discharge patient should follow-up with the [facility] advanced practitioner in 2 to3 weeks. 4. If further assistance is needed please reconsult the [facility]. Charges/Coding Visit Charges Inpatient E&M: 28520 [facility] Hosp 03/09/25 0953 Cosigner Signature (if applicable): CC: ~ Signed [facility]07-20-2025 Progress note Author Deric Lantigua [facility] Note Date/Time March 08, 2025 1:34 pm [facility] System Medical Records Department [address] [place] [address] Progress Note - Hospitalist 03/08/25 0844 MR#: [id number] Acct: [id number] Name: PEDRO HILLMAN Rep #:[id number] : 1945 80 From: Deric Smith PCP: Dr. Tonio Fajardo, DO Status:ADM IN Location: [place] [id number]- [id number] Reason for Visit Chief Complaint: SOB. [...] 03/05/25 14:17 SB (Rec: 03/05/25 14:17 SB [id number]) Nutrition Malnutrition Evidence of Yes Malnutrition Exists [...] also sustained 11 beats of V. tach. converter operator reviewed. Still in A-fib/flutter with bradycardia. Shortness [...] hematuria: (8) Atherosclerosis of coronary artery of andreafski heart without angina pectoris: QUALIFIERS: Coronary Disease-Associated Artery/Lesion type: nativeartery Qualified Code(s): I25.10 - Atherosclerotic heart disease of andreafski coronary artery without angina pectoris (9) Overweight [...] no significant delta change. ACS ruled out. Patch Washer is consulted. Repeat proBNP is elevated but [...] conduction. Later on irregular variable conduction on receiving operator 03/06: Discussed with the ophthalmic technologist. Metoprolol increased to 25 mg twice daily, [...] pressure in the 90s. Discussed with the ophthalmic technologist. Advised to discontinue to discontinue metoprolol and [...] at the right lung base. Reading Location: [facility] Echocardiogram 03/04/25 20:08 Interpretation Summary Moderate concentric [...] in right lung base aeration. Reading Location: [place] [address] Charges/Coding Addendum Addendum: Total time of the visit including total time spent in counseling or coordinationof care, (more than 50% of the total time, spent in obtaining medical information from nurses and other ancillary care providers ,explaining to the patient about labs, imaging, diagnosis and management of active complex medical conditions), multiple active cardiac issues, urinary retention discussion with ophthalmic technologist and clinical update given to patient's kyubvgnf-ew-acm, review of labs and imaging is 35 minutes. Visit Charges Inpatient E&M: 29971 Subs Hosp 03/08/25 1040 <Electronically signed by Deric Lantigua MD> Cosigner Signature (if applicable): CC: ~ Signed ADDENDUM by Dr. Deric Lantigua MD on 03/08/25 at 1334 Addendum The patient's son and hxakyjcp-ha-bsw came to visit him. They decided patient to be DNR CC arrest with no intubation CODE STATUS changed. Living will/advanced directive/end of life care: Patient does not have living will or advanced directive. He is next of kin is his son and rvavurtg-an-fph. After discussion of benefits/risks procedures involved with full code, DNR CC arrest and DNR CC, the patient and his joeriusr-qq-rgb he opted for DNR CC arrest with no intubation. Patient also said that he does not want pacemaker but his xremvjlq-jd-zpj and son will discuss with him Patient does want artificial life support including intubation, tube feed, ventilator and/chest compression, central venous catheter, vasopressor and DC shock if needed Total time spent in vacz-qe-zlig encounter in discussion of advanced directive 17 minutes. 03/08/25 1334<Electronically signed by Deric Lantigua MD> Cosigner Signature (if applicable): cc: ~* Signed [facility] Work Phone: 1(756) 873-276907-20-2025 Progress note [facility] Medical Records Department [address] [place] [address] Progress Note - Hospitalist 03/08/25 0844 MR#: [id number] Acct: [id number] Name: PEDRO HILLMAN Rep #:[id number] : 1945 80 From: Deric Smith PCP: Dr. Tonio Fajardo, Status:ADM IN Location: [place] [address] Reason for Visit Chief Complaint: SOB. Objective [...] 03/05/25 14:17 SB (Rec: 03/05/25 14:17 SB [id number]) Nutrition Malnutrition Evidence of Yes Malnutrition Exists [...] Patient alsosustained 11 beats of V. tach. converter operator reviewed. Still in A-fib/flutter with bradycardia. Shortness [...] hematuria: (8) Atherosclerosis of coronary artery of andreafski heart without angina pectoris: QUALIFIERS: Coronary Disease-Associated Artery/Lesion type: nativeartery Qualified Code(s): I25.10 - Atherosclerotic heart disease of andreafski coronary artery without angina pectoris (9) Overweight [...] no significant delta change. ACS ruled out. Patch Washer is consulted. Repeat proBNP is elevated but [...] conduction. Later on irregular variable conduction on receiving operator 03/06: Discussed with the ophthalmic technologist. Metoprolol increased to 25 mg twice daily, Cardizem 60 mg [id number]. If heart rate controlled, will switch to [...] pressure in the 90s. Discussed with the ophthalmic technologist. Advised to discontinue to discontinue metoprolol and [...] at the right lung base. [facility] Echocardiogram 03/04/25 20:08 Interpretation Summary Moderate [...] in right lung base aeration. Reading Location: [place] [address] Charges/Coding Addendum Addendum: Total time of the visit including total time spent in counseling or coordinationof care, (more than50% of the total time, spent in obtaining medical information from nurses and other ancillary care providers ,explaining to the patient about labs, imaging, diagnosis and management of active complexmedical conditions), multiple active cardiac issues, urinary retention discussion with cardiologistand clinical update given to patient's tivssvni-fi-rml, review of labs and imaging is 35 minutes. Visit Charges Inpatient E&M: 55559 Subs Hosp L3 03/08/25 1040 Cosigner Signature (if applicable): CC: ~ Signed ADDENDUM by Dr. Deric Lantigua MD on 03/08/25 at 1334 Addendum The patient's son and iuekqltn-pd-zml came to visit him. They decided patient to be DNR CC arrest with no intubation CODE STATUS changed. Living will/advanced directive/end of life care: Patient does not have living will or advanced directive. He is next of kin is his son and ezezmmyy-js-gqy. After discussion of benefits/risks procedures involved with full code, DNR CC arrest and DNR CC, the patient and his hmfqzexb-ep-bmd he opted for DNR CC arrest with no intubation. Patient also said that he does not want pacemaker but his udertowl-eg-nam and son will discuss with him Patient does want artificial life support including intubation, tube feed, ventilator and/chest compression, central venous catheter, vasopressor and DC shock if needed Total time spent in zqro-ez-enwr encounter in discussion of advanced directive 17 minutes. 03/08/25 1334 Cosigner Signature (if applicable): cc: ~* Signed [facility]07-20-2025 Progress note Author Marjorie Green [facility] Note Date/Time March 08, 2025 8:51 am [facility] Medical Records Department [address] [place] [address] Progress Note - Cardiology 03/08/25 0848 MR#: [id number] Acct: [id number] Name: PEDRO HILLMAN Rep #:[id number] : 1945 80 From: Marjorie Green MD PCP: Dr. Tonio Fajardo, DO Status:ADM IN Location: [place] [address] Subjective Subjective Denies any complaints. Became bradycardic [...] Cosigner Signature (if applicable): CC: ~ Signed [facility] Work Phone: 1(635) 486-612807-20-2025 Progress note [facility] Medical Records Department [address] [place] [address] Progress Note - Cardiology 03/08/25 0848 MR#: [id number] Acct: [id number] Name: PEDRO HILLMAN Rep #:[id number] : 1945 80 From: Marjorie Green MD PCP: Dr. Tonio Fajardo, DO Status:ADM IN Location: [place] [address] Subjective Subjective Denies any complaints. Became bradycardic [...] Cosigner Signature (if applicable): CC: ~ Signed [facility]07-19-2025 Progress note Author Deric Lantigua [facility] Note Date/Time March 07, 2025 1:51 pm [facility] System Medical Records Department [address] [place] [address] Progress Note - Hospitalist 03/07/25 1342 MR#: [id number] Acct: [id number] Name: PEDRO HILLMAN Rep #:[id number] : 1945 80 From: Deric Smith PCP: Dr. Tonio Fajardo, Status:ADM IN Location: [place] [address] Reason for Visit Chief Complaint: SOB. Objective [...] 03/05/25 14:17 SB (Rec: 03/05/25 14:17 SB [id number]) Nutrition Malnutrition Evidence of Yes Malnutrition Exists [...] low 108/34 but improved to 129 systolic. converter operator reviewed. Still in A-fib/flutter. Shortness of breath [...] hematuria: (8) Atherosclerosis of coronary artery of andreafski heart without angina pectoris: QUALIFIERS: Coronary Disease-Associated Artery/Lesion type: nativeartery Qualified Code(s): I25.10 - Atherosclerotic heart disease of andreafski coronary artery without angina pectoris (9) Overweight [...] no significant delta change. ACS ruled out. Patch Washer is consulted. Repeat proBNP is elevated but [...] conduction. Later on irregular variable conduction on receiving operator 03/06: Discussed with the ophthalmic technologist. Metoprolol increased to 25 mg twice daily, [...] Ordering Physician: Nicola Lindsey Referring Physician: SCOTTY EILZALDE Performed By: Haley Stevens and Student Chest X-Ray 03/05/25 04:30 IMPRESSION: Small interval improvement in right lung base aeration. Reading Location: [place] [address] Charges/Coding Visit Charges Inpatient E&M: 50477 Subs Hosp L2 03/07/25 1351 <Electronically signed by Deric Lantigua MD> Cosigner Signature (if applicable): CC: ~ Signed [facility] Work Phone: 1(944) 306-686007-19-2025 Progress note [facility] Medical Records Department [address] [place] [address] Progress Note - Hospitalist 03/07/25 1342 MR#: [id number] Acct: [id number] Name: PEDRO HILLMAN Rep #:[id number] : 1945 80 From: Deric Smith PCP: Dr. Tonio Fajardo, DO Status:ADM IN Location: [place] [address] Reason for Visit Chief Complaint: SOB. Objective [...] 03/05/25 14:17 SB (Rec: 03/05/25 14:17 SB [id number]) Nutrition Malnutrition Evidence of Yes Malnutrition Exists [...] low 108/34 but improved to 129 systolic. converter operator reviewed. Still in A-fib/flutter. Shortness of breath [...] hematuria: (8) Atherosclerosis of coronary artery of andreafski heart without angina pectoris: QUALIFIERS: Coronary Disease-Associated Artery/Lesion type: nativeartery Qualified Code(s): I25.10 - Atherosclerotic heart disease of andreafski coronary artery without angina pectoris (9) Overweight [...] no significant delta change. ACS ruled out. Patch Washer is consulted. Repeat proBNP is elevated but [...] conduction. Later on irregular variable conduction on receiving operator 03/06: Discussed with the ophthalmic technologist. Metoprolol increased to 25 mg twice daily, Cardizem 60 mg G5owdqke. If heart rate controlled, will switch to [...] at the right lung base. Reading Location: [facility] Echocardiogram 03/04/25 20:08 Interpretation Summary Moderate concentric [...] in right lung base aeration. [facility] Charges/Coding Visit Charges Inpatient E&M: 02372 Subs Hosp L2 03/07/25 1353 Cosigner Signature (if applicable): CC: ~ Signed [facility]07-18-2025 Progress note Author Deric Lantigua [facility] Note Date/Time March 06, 2025 3:46 pm [facility] Medical Records Department [address] [place] [address] Progress Note - Hospitalist 03/06/25 1540 MR#: [id number] Acct: [id number] Name: PEDRO HILLMAN Rep #:[id number] : 1945 80 From: Deric Smith PCP: Dr. Tonio Fajardo, DO Status:ADM IN Location: [place] [address] Reason for Visit Chief Complaint: SOB. Objective [...] 03/05/25 14:17 SB (Rec: 03/05/25 14:17 SB [id number]) Nutrition Malnutrition Evidence of Yes Malnutrition Exists [...] is improved. Still in A-fib/flutter with heart [id number]. Shortness of breath is better. Did not [...] hematuria: (8) Atherosclerosis of coronary artery of andreafski heart without angina pectoris: QUALIFIERS: Coronary Disease-Associated Artery/Lesion type: nativeartery Qualified Code(s): I25.10 - Atherosclerotic heart disease of andreafski coronary artery without angina pectoris (9) Overweight [...] no significant delta change. ACS ruled out. Patch Washer is consulted. Repeat proBNP is elevated but [...] conduction. Later on irregular variable conduction on receiving operator 03/06: Discussed with the ophthalmic technologist. Metoprolol increased to 25 mg twice daily, [...] at the right lung base. Reading Location: [facility] Echocardiogram 03/04/25 20:08 Interpretation Summary Moderate concentric [...] in right lung base aeration. Reading Location: [place] [address] Charges/Coding Visit Charges Inpatient E&M: 81530 Subs Hosp L2 03/06/25 1546 <Electronically signed by Deric Lantigua MD> Cosigner Signature (if applicable): CC: ~ Signed [facility] Work Phone: 1(299) 690-717007-18-2025 Progress note [facility] Medical Records Department [address] [place] [address] Progress Note - Hospitalist 03/06/25 1540 MR#: [id number] Acct: [id number] Name: PEDRO HILLMAN Rep #:[id number] : 1945 80 From: Deric Smith PCP: Dr. Tonio Fajardo, DO Status:ADM IN Location: [place] [address] Reason for Visit Chief Complaint: SOB. Objective [...] 03/05/25 14:17 SB (Rec: 03/05/25 14:17 SB [id number]) Nutrition Malnutrition Evidence of Yes Malnutrition Exists [...] is improved. Still in A-fib/flutter with heart [id number]. Shortness of breath is better. Did not [...] hematuria: (8) Atherosclerosis of coronary artery of andreafski heart without angina pectoris: QUALIFIERS: Coronary Disease-Associated Artery/Lesion type: nativeartery Qualified Code(s): I25.10 - Atherosclerotic heart disease of andreafski coronary artery without angina pectoris (9) Overweight [...] no significant delta change. ACS ruled out. Patch Washer is consulted. Repeat proBNP is elevated but [...] conduction. Later on irregular variable conduction on receiving operator 03/06: Discussed with the ophthalmic technologist. Metoprolol increased to 25 mg twice daily, Cardizem 60 mg G6ypbfgh. If heart rate controlled, will switch to [...] at the right lung base. Reading Location: [facility] Echocardiogram 03/04/25 20:08 Interpretation Summary Moderate concentric [...] in right lung base aeration. Reading Location: [place] [address] Charges/Coding Visit Charges Inpatient E&M: 64414 Subs Hosp L2 03/06/25 1546 Cosigner Signature (if applicable): CC: ~ Signed [facility]07-18-2025 Consult note Author Marjorie Green [facility] Note Date/Time March 06, 2025 9:33 am [facility] Medical Records Department [address] [place] [address] Consultation - Cardiology 03/06/25 0926 MR#: [id number] Acct: [id number] Name: PEDRO HILLMAN Rep #:[id number] : 1945 80 From: Marjorie Green MD PCP: Dr. Tonio Fajardo, DO Status:ADM IN Location: [facility] [id number]- 1 Assessment & Plan Assessment/Plan (1) Atrial [...] his shortness of breath is much improved. [facility] Medical History (Updated 03/06/25 @ 09:[address] Marjorie Green MD) Other persistent atrial fibrillation New onset atrial flutter DIMA Wears hearing aid in both ears Former smoker Coronary artery disease Peripheral vascular occlusive disease BPH (benign prostatic hyperplasia) Chronic kidney disease, stage 3 Atherosclerosis of coronary artery of andreafski heart without angina pectoris Hyperlipidemia Lower extremity [...] applicable): CC: Dr. Tonio Fajardo, DO~ Signed [facility] Work Phone: 1(491) 191-916607-18-2025 Consult note [facility] Medical Records Department [address] [place] [address] Consultation - Cardiology 03/06/25925 MR#: [id number] Acct: [id number] Name: PEDRO HILLMAN Rep #:[id number] : 1945 80 From: Marjorie Green MD PCP: Dr. Tonio Fajardo, DO Status:ADM IN Location: [place] [id number]- 1 Assessment & Plan Assessment/Plan (1) Atrial [...] his shortness of breath is much improved. [facility] Medical History (Updated 03/06/25 @ 09:[address] Marjorie Green MD) Other persistent atrial fibrillation New onset atrial flutter COVID Wears hearing aid in both ears Former smoker Coronary artery disease Peripheral vascular occlusive disease BPH (benign prostatic hyperplasia) Chronic kidney disease, stage 3 Atherosclerosis of coronary artery of andreafski heart without angina pectoris Hyperlipidemia Lower extremity [...] Performed By: Haley Stevens and Student 03/06/25 0920 Cosigner Signature (if applicable): CC: Dr. Tonio Fajardo, DO~ Signed [facility]07-17-2025 Progress note Author Deric Lantigua [facility] Note Date/Time March 05, 2025 3:56 pm [facility] Medical Records Department [address] [place] [address] Progress Note - Hospitalist 03/05/2519 MR#: [id number] Acct: [id number] Name: PEDRO HILLMAN Rep #:[id number] : 1945 80 From: Deric Smith PCP: Dr. Tonio Fajardo, DO Status:ADM IN Location: [place] [address] Reason for Visit Chief Complaint: SOB. Objective [...] 78.1 H, Lymph % (Auto) 10.1 L, Concho % (Auto) 9.1, Eos % (Auto) 1.6, [...] Clarity Cloudy, Urine pH 6.5, Ur Specific [place] 1.010, Urine Protein 100 H, Urine Glucose [...] (Auto) 76.4 H, Lymph % (Auto) 9.5L, Concho % (Auto) 11.4 H, Eos % (Auto) [...] at the right lung base. Reading Location: [facility] Chest X-Ray 03/05/25 04:30 IMPRESSION: Small interval improvement in right lung base aeration. Reading Location: [facility]2 Rhythm Strip Rhythm Strip: Atrial flutter [...] hematuria: (8) Atherosclerosis of coronary artery of andreafski heart without angina pectoris: QUALIFIERS: Coronary Disease-Associated Artery/Lesion type: nativeartery Qualified Code(s): I25.10 - Atherosclerotic heart disease of andreafski coronary artery without angina pectoris (9) Overweight [...] no significant delta change. ACS ruled out. Patch Washer is consulted. Repeat proBNP is elevated but [...] conduction. Later on irregular variable conduction on receiving operator 3. CKD; stage IIIb with hyperkalemia, present [...] Clarity Cloudy, Urine pH 6.5, Ur Specific [place] 1.010, Urine Protein 100 H, Urine Glucose [...] (Auto) 76.4 H, Lymph % (Auto) 9.5L, Concho % (Auto) 11.4 H, Eos % (Auto) [...] at the right lung base. Reading Location: [facility] Echocardiogram 03/04/25 20:08 Interpretation Summary Moderate concentric [...] in right lung base aeration. Reading Location: [place] [address] Charges/Coding Addendum Addendum: Total time of the [...] imagingis 35 minutes. Visit Charges Inpatient E&M: 97634 Subs Hosp L3 03/05/25 3791 <Electronically signed by Deric Lantigua MD> Cosigner Signature (if applicable): CC: ~ Signed [facility] Work Phone: 1(588) 422-902507-17-2025 Progress note [facility] Medical Records Department [address] [place] [address] Progress Note - Hospitalist 03/05/25718 MR#: [id number] Acct: [id number] Name: PEDRO HILLMAN Rep #:[id number] : 1945 80 From: Deric Smith PCP: Dr. Tonio Fajardo, DO Status:ADM IN Location: [place] [address] Reason for Visit Chief Complaint: SOB. Objective [...] 78.1 H, Lymph % (Auto) 10.1 L, Concho % (Auto) 9.1, Eos % (Auto) 1.6, [...] Clarity Cloudy, Urine pH 6.5, Ur Specific [place] 1.010, Urine Protein 100 H, Urine Glucose [...] (Auto) 76.4 H, Lymph % (Auto) 9.5L, Concho % (Auto) 11.4 H, Eos % (Auto) [...] at the right lung base. Reading Location: [facility] Chest X-Ray 03/05/25 04:30 IMPRESSION: Small interval improvement in right lung base aeration. Reading Location: [facility] Rhythm Strip Rhythm Strip: Atrial flutter [...] hematuria: (8) Atherosclerosis of coronary artery of andreafski heart without angina pectoris: QUALIFIERS: Coronary Disease-Associated Artery/Lesion type: nativeartery Qualified Code(s): I25.10 - Atherosclerotic heart disease of andreafski coronary artery without angina pectoris (9) Overweight [...] no significant delta change. ACS ruled out. Patch Washer is consulted. Repeat proBNP is elevated but [...] conduction. Later on irregular variable conduction on receiving operator 3. CKD; stage IIIb with hyperkalemia, present [...] Clarity Cloudy, Urine pH 6.5, Ur Specific [place] 1.010, Urine Protein 100 H, Urine Glucose [...] (Auto) 76.4 H, Lymph % (Auto) 9.5L, Concho % (Auto) 11.4 H, Eos % (Auto) [...] in right lung base aeration. Reading Location: [place] [address] Charges/Coding Addendum Addendum: Total time of the [...] imagingis 35 minutes. Visit Charges Inpatient E&M: 53718 Subs Hosp 03/05/25 1556 Cosigner Signature (if applicable): CC: ~ Signed [facility]07-17-2025 History and physical note Author Nicola Madison [facility] Note Date/Time March 05, 2025 6:22 am [facility] Medical Records Department [address] [place] [address] H&P Exam - Hospitalist 03/04/251921 MR#: [id number] Acct: [id number] Name: PEDRO HILLMAN Rep #:[id number] : 1945 80 From: Nicola Levy DO PCP: Dr. Tonio Fajardo, DO Status:ADM IN Location: [facility] [id number]- 1 [facility] - General General Date of Admission: 03/04/25 [...] of COVID-19 and OA who presents to [facility] ER complaining of SOB. Mr. Hillman reports [...] ~53% with moderate mitral annular calcification and enwv-vm-eoeruqai (~1-2+) mitral valve insufficiency with a pulmonary [...] is expected to extend beyond 2 midnights. [facility] Medical History Other persistent atrial fibrillation New onset atrial flutter COVID Wears hearing aid in both ears Former smoker Coronary artery disease Peripheral vascular occlusive disease BPH (benign prostatic hyperplasia) Chronic kidney disease, stage 3 Atherosclerosis of coronary artery of andreafski heart without angina pectoris Hyperlipidemia Lower extremity [...] Std Deviation 54.2 H, RDW Coeff of Rgegie 16.5 H, Plt Count 189, MPV 10.2, Immature Gran % (Auto) 0.700, Neut % (Auto) 78.1 H, Lymph % (Auto) 10.1 L, Concho % (Auto) 9.1, Eos % (Auto) 1.6, [...] at the right lung base. Reading Location: [facility] Assessment & Plan Assessment/Plan (1) CHF exacerbation: QUALIFIERS: Heart failure type: unspecified Qualified Code(s): I50.9 - Heart failure, unspecified (2) Atrial flutter with rapid ventricular response: (3) Chronic anticoagulation: (4) Elevated troponin: (5) Hyperkalemia: (6) Pleural effusion on right: (7) Acute cystitis with hematuria: (8) Atherosclerosis of coronary artery of andreafski heart without angina pectoris: QUALIFIERS: Coronary Disease-Associated Artery/Lesion type: nativeartery Qualified Code(s): I25.10 - Atherosclerotic heart disease of andreafski coronary artery without angina pectoris (9) Overweight [...] LVEF. Serialize troponin. Finally, we will consult [facility] see this patient on rounds [...] 75 minutes. Charges/Coding Visit Charges Inpatient E&M: 60200 Init Hosp L3 03/05/25 0622 <Electronically signed by Nicola Lindsey DO> Cosigner Signature (if applicable): CC: Dr. Nicola Lindsey DO; Dr. Tonio Fajardo DO~ Signed [facility] Work Phone: 1(313) 477-134007-17-2025 History and physical note [facility] Medical Records Department [address] [place] [address] H&P Exam - Hospitalist 03/04/251921 MR#: [id number] Acct: [id number] Name: PEDRO HILLMAN Rep #:[id number] : 1945 80 From: Nicola Levy DO PCP: Dr. Tonio Fajardo, DO Status:ADM IN Location: [facility] [id number]- 1 [facility] - General General Date of Admission: 03/04/25 [...] of COVID-19 and OA who presents to [facility] ERcomplaining of SOB. Mr. Hillman reports his [...] ~53% with moderate mitral annular calcification and lilh-hb-dfeclpnm (~1-2+) mitral valve insufficiency with a pulmonary [...] is expected to extend beyond 2 midnights. [facility] Medical History Other persistent atrial fibrillation New onset atrial flutter COVCOLETTE Wears hearing aid in both ears Former smoker Coronary artery disease Peripheral vascular occlusive disease BPH (benign prostatic hyperplasia) Chronic kidney disease, stage 3 Atherosclerosis of coronary artery of andreafski heart without angina pectoris Hyperlipidemia Lower extremity [...] 78.1 H, Lymph % (Auto) 10.1 L, Concho % (Auto) 9.1, Eos % (Auto) 1.6, [...] at the right lung base. Reading Location: [facility] Assessment & Plan Assessment/Plan (1) CHF exacerbation: QUALIFIERS: Heart failure type: unspecified Qualified Code(s): I50.9 - Heart failure, unspecified (2) Atrial flutter with rapid ventricular response: (3) Chronic anticoagulation: (4) Elevated troponin: (5) Hyperkalemia: (6) Pleural effusion on right: (7) Acute cystitis with hematuria: (8) Atherosclerosis of coronary artery of andreafski heart without angina pectoris: QUALIFIERS: Coronary Disease-Associated Artery/Lesion type: nativeartery Qualified Code(s): I25.10 - Atherosclerotic heart disease of andreafski coronary artery without angina pectoris (9) Overweight [...] LVEF. Serialize troponin. Finally, we will consult [facility] see this patient on rounds [...] 75 minutes. Charges/Coding Visit Charges Inpatient E&M: 11938 Init Hosp L3 03/05/25 0622 Cosigner Signature (if applicable): CC: Dr. Nicola Lindsey DO; Dr. Tonio Fajardo DO~ Signed [facility]07-17-2025 Radiology Diagnostic study note [facility] Imaging Services [address] [place], [place] [address] Chest 1 View (Portable) MR#: [id number] Acct: [id number] Name: PEDRO HILLMAN #: [id number] : 1945 M 80 From: Regi Babb MD PCP: Dr. Tonio Fajardo DO Status: ADM IN Study:Chest 1 View (Portable) Date of Exam: 03/05/25 Exam# [id number] Ordering Dr: Nicola Mukherjee DO PROCEDURE: CHEST [...] in right lung base aeration. Reading Location: [facility]2 CC: Dr. Nicola Lindsey DO; Dr. Tonio Fajardo DO ~ Whitewasher: Signed [facility]07-16-2025 Evaluation note* Diagnosis Onset Date Resolution Status [...] 042024 7:57pm Atherosclerosis of coronary artery of andreafski heart without angina pectoris chronic March 04, 2025 7:57pm CHF exacerbation chronic February 7:57pm Hypertension chronic March 04 7:57pm [facility] Work Phone: 1(741) 349-148607-16-2025 Evaluation note* Diagnosis Onset Date Resolution Status [...] 042024 7:57pm Atherosclerosis of coronary artery of andreafski heart without angina pectoris chronic March 04, [...] 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 March 17, 2025 12:51pm [facility] Work Phone: 1(523) 302-438607-16-2025 Discharge summary Author Chris Ochoa [facility] Note Date/Time March 04, 2025 7:26 pm [facility] Medical Records Department [address] [place] [address] Emergency Department Summary 03/04/25 MR#: [id number] Acct: [id number] Name: PEDRO HILLMAN Rep #:[id number] : 1945 80 From: Chris Ochoa MD [...] stage 3 Atherosclerosis of coronary artery of andreafski heart without angina pectoris Hyperlipidemia Lower extremity [...] signs. Back nontender. Movingall 4 extremities. 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 Calves nontender without edema or cords. [...] 78.1 H Lymph % (Auto) 10.1 L Concho % (Auto) 9.1 Eos % (Auto) 1.6 [...] at the right lung base. Reading Location: [place] [address] Chest x-ray, 2 views, AP and lateral, [...] Chronic anticoagulation Disposition Disposition: Acute Care Hospital [facility] What to do if you have Problems For any increased pain, shortness of breath, bleeding, nausea or vomiting, chestpain, or any unexpected problems, contact your Primary Care Provider. Call [facility] ([phone]) or report to the closest Emergency Room. Call 911 if necessary. 03/04/251925 <Electronically signed by Chris Ochoa MD> Cosigner Signature (if applicable): CC: Dr. Tonio Fajardo DO ~ Signed [facility] Work Phone: 1(312) 165-910807-16-2025 Discharge summary [facility] Medical Records Department [address] [place] [address] Emergency Department Summary 03/04/25 MR#: [id number] Acct: [id number] Name: PEDRO HILLMAN Rep #:[id number] : 1945 80 From: Chris Ochoa MD [...] stage 3 Atherosclerosis of coronary artery of andreafski heart without angina pectoris Hyperlipidemia Lower extremity [...] signs. Back nontender. Movingall 4 extremities. 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 Calves nontender without edema or cords. [...] 78.1 H Lymph % (Auto) 10.1 L Concho % (Auto) 9.1 Eos % (Auto) 1.6 [...] at the right lung base. Reading Location: [facility] Chest x-ray, 2 views, AP and lateral, [...] COPD, Chronic kidneydisease, Chronic anticoagulation Disposition Disposition: [facility] What to do if you have Problems For any increased pain, shortness of breath, bleeding, nausea or vomiting, chestpain, or any unexpected problems, contact your Primary Care Provider. Call [facility] ([phone]) or report tothe closest Emergency Room. Call 911 if necessary. 03/04/251925 Cosigner Signature (if applicable): CC: Dr. Tonio Fajardo DO ~ Signed [facility]07-16-2025 Radiology Diagnostic study note [facility] Imaging Services [address] [place], [place] [address] Chest PA and Lateral MR#: [id number] Acct: [id number] Name: PEDRO HILLMAN Rep #: [id number] : 1945 M 80 From: Tom Flores MD PCP: Dr. Tonio Fajardo DO Status: PRE ER Study:Chest PA and Lateral Date of Exam: 03/04/25 Exam# [id number] Ordering Dr: Camila Ochoa MD PROCEDURE: CHEST [...] at the right lung base. Reading Location: [place] [address] CC: Dr. Chris Ochoa MD; Dr. Tonio Fajardo DO ~ Whitewasher: Signed [facility]07-16-2025 Discharge summary Author Chris Ochoa [facility] Note Date/Time March 04, 2025 7:26 pm [facility] Medical Records Department [address] [place] [address] Emergency Department Summary 03/04/25 MR#: [id number] Acct: [id number] Name: PEDRO HILLMAN Rep #:[id number] : 1945 80 From: Chris Ochoa MD [...] stage 3 Atherosclerosis of coronary artery of andreafski heart without angina pectoris Hyperlipidemia Lower extremity [...] signs. Back nontender. Movingall 4 extremities. 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 Calves nontender without edema or cords. [...] 78.1 H Lymph % (Auto) 10.1 L Concho % (Auto) 9.1 Eos % (Auto) 1.6 [...] at the right lung base. Reading Location: [place] [address] Chest x-ray, 2 views, AP and lateral, [...] Chronic anticoagulation Disposition Disposition: Acute Care Hospital [facility] What to do if you have Problems For any increased pain, shortness of breath, bleeding, nausea or vomiting, chestpain, or any unexpected problems, contact your Primary Care Provider. Call [facility] ([phone]) or report to the closest Emergency Room. Call 911 if necessary. 07/16/25 1926 <Electronically signed by Chris Ochoa MD> Cosigner Signature (if applicable): CC: Dr. Tonio Fajardo, DO ~ Signed [facility] Work Phone: 1(689) 184-446903-20-2025 Evaluation note* Diagnosis Onset Date Resolution Status [...] 2025 7:57pm Atherosclerosis of coronary artery of andreafski heart without angina pectoris chronic March 04, 2025 7:57pm CHF exacerbation chronic February 7:57pm [facility] Work Phone: 1(243) 733-527403-13-2025 Radiology Diagnostic study note [facility] Imaging Services [address] [place], [place] [address] CT Chest AND Abd W/ Contrast MR#: [id number] Acct: [id number] Name: PEDRO HILLMAN Rep #: [id number] : 1945 M 79 From: Tom Flores MD PCP: Dr. Tonio Fajardo, Status: REG CLI Study:CT Chest AND Abd W/ Contrast Date of Ex am: 10/30/24 Exam# [id number] Ordering Dr: Frantz Zamora MD PROCEDURE: CT [...] Zamora MD; Dr. Tonio Fajardo DO ~ Whitewasher: Signed [facility]-28-2025 Procedure notey [facility] Pulmonary Services/Neurology [address] [place] [address] MR#: [id number] Acct: [id number] Name: PEDRO HILLMAN Rep #:[id number] : 1945 79 From: Tyrell Uriarte DO Referring Dr: Lorie Mart FAIRING MAN FAIRING MAN-C Status: REG CLI Location: [facility] Date: Sex: M C PSN 6 Minute Walk Test 6 Minute Walk Test 6 Minute Walk Test: 6 Minute Walk Test PSN:6-Minute Walk Test Start: 10/16/24 13:24 Freq: Status: Active Protocol: RESP.6MINW Document 10/16/24 13:24 [facility] (Rec: 10/16/24 13:34 [facility] [id number]) 6 Minute Walk Test Date Performed 10/16/24 [...] Dictated: 10/17/24 1004 Date Transcribed: 10/17/24 1004 Whitewasher: Dr. Tyrell Uriarte, Signed [facility]-06-2025 Evaluation note* Diagnosis Onset Date Resolution Status [...] right lung chronic Marlon h 2024 2:10pm [facility] Work Phone: 1(100) 344-138502-06-2025 Evaluation note* Diagnosis Onset Date Resolution Status [...] right lung chronic Marlon h 2024 1:24pm [facility] Work Phone: 1(330) 811-264310-20-2023 Procedure [facility] 04-18-2023 Progress note Author Joaquim Suárez [facility] April 18, 2023 7:12pm Note Date/Time April 18, 2023 3: 56pm [facility] [address] [place] [address] Progress Note - Wound Care 04/18/23 1549 MR#: [id number] Acct: [id number] Name: PEDRO HILLMAN Rep #:[id number] : 1945 78 From: Joaquim Smith PM [...] Recorded Date Recorded By Document 04/02/23 11:24 [id number] 04/02/23 11:25 PL Document 04/18/23 13:24 [facility] [id number] 04/18/23 13:30 [facility] 04/02/23 04/18/23 11:24 13:24 - Today's Visit Information Type of service Follow-up Visit Follow-up Visit (Physician/TECHNICAL INFORMATION SPECIALIST (Physician/TECHNICAL INFORMATION SPECIALIST ) ) Arrival Mode Ambulatory,Cane Ambulatory,Cane Transfer [...] Recorded Date Recorded By Document 04/18/23 13:24 [facility] [id number] 04/18/23 13:30 [facility] 04/18/23 13:24 Wound Center Nurse 1 [...] Attached -Granulation Amt Large (67-100%) -Granulation Quality Ignacio -Slough/Fibrin No -Necrosis Amt None Present (0 [...] Recorded Date Recorded By Document 04/02/23 11:42 [id number] 04/02/23 11:53 Document 04/18/23 14:03 [id number] 04/18/23 14:04 04/02/23 04/18/23 11:42 14:03 Wound [...] Recorded Date Recorded By Document 04/02/23 11:54 [id number] 04/02/23 11:54 Document 04/18/23 14:24 [id number] 04/18/23 14:25 RB 04/02/23 04/18/23 11:54 14:24 [...] mellitus with diabetic polyneuropathy QUALIFIERS: Diabetes mellitus machine long goods helper insulin use: with machine long goods helper use Qualified Code(s): E11.42 - Type 2 diabetes mellitus with diabetic polyneuropathy; Z79.4 - intermediate designer (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 of insulin PLAN: Educated the [...] Cosigner Signature (if applicable): CC: ~ Signed [facility] Work Phone: 1(858) 604-956108-20-2023 Progress note Author Bonny Glynn [facility] April 07, 2023 10:44pm Note Date/Time April 02, 2023 12 :35pm [facility] [address] [place] [address] Progress Note - Wound Care 04/02/23 1235 MR#: [id number] Acct: [id number] Name: PEDRO HILLMAN Rep #:[id number] : 1945 78 From: Bonny garcia FAIRING MAN FAIRING MAN-C PCP: Dr. Tonio Fajrado, DO Status:REG RCR Location: History of Present [...] 11:24 04/02/23 11:24 Charges/Coding Procedures Integumentary 111xxx-113xx: 98002 Mihaela subq tissue 20 sq cm/< Debridement [...] Recorded Date Recorded By Document 04/02/23 11:24 [id number] 04/02/23 11:25 PL 04/02/23 11:24 WC - Today's Visit Information Type of service Follow-up Visit (Physician/TECHNICAL INFORMATION SPECIALIST ) Arrival Mode Ambulatory,Cane Transfer Assistance None [...] Date Recorded By Document 04/02/23 11:42 DORA [id number] 04/02/23 11:53 04/02/23 11:42 Wound Center Nurse [...] Date Recorded By Document 04/02/23 11:54 DORA [id number] 04/02/23 11:54 04/02/23 11:54 Wound Care Center [...] that the wound center will have a basketball player, will have the patient see him for further evaluation and treatment. Follow up two weeks. Call or come in sooner if develop any questions or concerns. 04/07/230 <Electronically signed by Bonny Glynn NP [employer]IRING MAN-C> Cosigner Signature (if applicable): CC: ~ Signed [facility] Work Phone: 1(846) 285-336107-17-2023 Progress note Author Bonny Glynn [facility] March 05, 2023 1:06pm Note Date/Time March 05, 2023 12:2 9pm [facility] [address] [place] [address] Progress Note - Wound Care 03/05/23 1226 MR#: [id number] Acct: [id number] Name: PEDRO HILLMAN Rep #:[id number] : 1945 78 From: Bonny garcia FAIRING MAN FAIRING MAN-C PCP: Dr. Tonio Fajardo, DO Status:REG RCR [...] Method Room Air Charges/Coding Procedures Integumentary 111xxx-113xx: 26941 Mihaela subq tissue 20 sq cm/< Debridement [...] Recorded Date Recorded By Document 02/19/23 13:34 [id number] 02/19/23 13:36 Document 03/05/23 11:26 JACOB [id number] 03/05/23 11:29 02/19/23 03/05/23 13:34 11:26 - Today's Visit Information Type of service Follow-up Visit Follow-up Visit (Physician/TECHNICAL INFORMATION SPECIALIST (Physician/TECHNICAL INFORMATION SPECIALIST ) ) Arrival Mode Ambulatory Ambulatory,Cane Accompanied [...] Recorded Date Recorded By Document 02/19/23 13:34 [id number] 02/19/23 13:36 Document 03/05/23 11:26 KW [id number] 03/05/23 11:29 KW 02/19/23 03/05/23 13:34 11:26 [...] Large (67-100%) Small (1-33%) -Granulation Quality Red Ignacio -Slough/Fibrin No -Necrosis Amt Small (1-33%) -Structure [...] Recorded Date Recorded By Document 02/19/23 13:37 [id number] 02/19/23 13:39 JF Document 03/05/23 11:37 [id number] 03/05/23 11:46 JF 02/19/23 03/05/23 13:37 11:37 [...] Date Recorded By Document 02/19/23 13:43 MW [id number] 02/19/23 13:44 MW Document 03/05/23 11:53 [facility] [id number] 03/05/23 11:55 BMF 02/19/23 03/05/23 13:43 11:53 [...] 1306 <Electronically signed by Bonny Glynn NP FAIRING MAN-C> Cosigner Signature (if applicable): CC: ~ Signed [facility] Work Phone: 1(504) 713-449507-03-2023 Progress note Author [facility] February 19, 2023 2:23pm Note Date/Time February 19, 2023 2:16p m [facility] [address] [place] [address] Progress Note - Wound Care 02/19/23 1412 MR#: [id number] Acct: [id number] Name: PEDRO HILLMAN Rep #:[id number] : 1945 78 From: Bonny garcia NP FAIRING MAN-C PCP: Dr. Tonio Fajardo, DO Status:REG R [...] 13:34 02/19/23 13:34 Charges/Coding Procedures Integumentary 111xxx-113xx: 23423 Mihaela subq tissue 20 sq cm/< Debridement [...] Date Recorded By Document 02/19/23 13:34 DORA [id number] 02/19/23 13:36 DORA 02/19/23 13:34 - Today's Visit Information Type of service Follow-up Visit (Physician/TECHNICAL INFORMATION SPECIALIST ) Arrival Mode Ambulatory Patient Requires Transmission-Based [...] Date Recorded By Document 02/19/23 13:34 DORA [id number] 02/19/23 13:36 DORA 02/19/23 13:34 Wound Center [...] Recorded Date Recorded By Document 02/19/23 13:37 [id number] 02/19/23 13:39 02/19/23 13:37 Wound Center Nurse [...] Date Recorded By Document 02/19/23 13:43 MW [id number] 02/19/23 13:44 MW 02/19/23 13:43 Wound Care [...] if develop any questions or concerns. 02/19/23 9534 <Electronically signed by Bonny Glynn NP FAIRING MAN-C> Cosigner Signature (if applicable): CC: ~ Signed [facility] Work Phone: 1(177) 365-161706-19-2023 Progress note Author Bonny Glynn [facility] February 05, 2023 2:37pm Note Date/Time February 05, 2023 1:59 pm [facility] [address] [place] [address] Progress Note - Wound Care 02/05/23 1359 MR#: [id number] Acct: [id number] Name: PEDRO HILLMAN Rep #:[id number] : 1945 78 From: Bonny garcia FAIRING MAN FAIRING MAN-C PCP: Dr. Tonio Fajardo, DO Status:REG RCR Location: History of Present Illness Date of Service: 02/05/23 Chief Complaint: right medial foot ulcer History of Wound: This 78-year-old male returns to the wound healing clinic for reoccurrence of a right medial foot ulcer. Wound care has been Moistened Cass covered with [place] SAP dressing. Patient diabetic neuropathic. Patient dealing [...] Method Room Air Charges/Coding Procedures Integumentary 111xxx-113xx: 96673 Mihaela subq tissue 20 sq cm/< Debridement [...] Date Recorded By Document 01/22/23 13:45 DL [id number] 01/22/23 13:48 DL Document 02/05/23 13:10 [facility] [id number] 02/05/23 13:15 [facility] 01/22/23 02/05/23 13:45 13:10 - Today's Visit Information Type of service Follow-up Visit Follow-up Visit (Physician/TECHNICAL INFORMATION SPECIALIST (Physician/TECHNICAL INFORMATION SPECIALIST ) ) Arrival Mode Ambulatory Ambulatory,Cane Transfer [...] Date Recorded By Document 01/22/23 13:45 DL [id number] 01/22/23 13:48 DL Document 02/05/23 13:10 BMF [id number] 02/05/23 13:15 BMF 01/22/23 02/05/23 13:45 13:10 [...] Present (0 Large (67-100%) %) -Granulation Quality Ignacio -Slough/Fibrin Yes -Necrosis Amt Small (1-33%) Small [...] Recorded Date Recorded By Document 01/22/23 14:22 [id number] 01/22/23 14:23 01/22/23 14:22 Wound Center Nurse [...] Date Recorded By Document 01/22/23 14:30 DL [id number] 01/22/23 14:31 DL Document 02/05/23 13:49 BMF [id number] 02/05/23 13:49 BMF 01/22/23 02/05/23 14:30 13:49 [...] 1437 <Electronically signed by Bonny Glynn NP FAIRING MAN-C> Cosigner Signature (if applicable): CC: ~ Signed [facility] Work Phone: 1(981) 869-830906-05-2023 Progress note Author Bonny Glynn [facility] January 22, 2023 3:47pm Note Date/Time January 22, 2023 3:31p m [facility] [address] [place] [address] Progress Note - Wound Care 01/22/23 1529 MR#: [id number] Acct: [id number] Name: PEDRO HILLMAN Rep #:[id number] : 1945 78 From: Bonny garcia FAIRING MAN FAIRING MAN-C PCP: Dr. Tonio Fajardo, DO Status:REG RCR Location: History of Present Illness Date of Service: 01/22/23 Chief Complaint: right medial foot ulcer History of Wound: This 78-year-old male returns to the wound healing clinic for reoccurrence of a right medial foot ulcer. Wound care has been Moistened Cass covered with [place] SAP dressing. Patient diabetic neuropathic. Patient dealing [...] 13:45 01/22/23 13:45 Charges/Coding Procedures Integumentary 111xxx-113xx: 02858 Mihaela subq tissue 20 sq cm/< Debridement [...] Date Recorded By Document 01/22/23 13:45 DL [id number] 01/22/23 13:48 DL 01/22/23 13:45 WC - Today's Visit Information Type of service Follow-up Visit (Physician/TECHNICAL INFORMATION SPECIALIST ) Arrival Mode Ambulatory Transfer Assistance None [...] Date Recorded By Document 01/22/23 13:45 DL [id number] 01/22/23 13:48 DL 01/22/23 13:45 Wound Center [...] Recorded Date Recorded By Document 01/22/23 14:22 [id number] 01/22/23 14:23 01/22/23 14:22 Wound Center Nurse [...] Date Recorded By Document 01/22/23 14:30 DL [id number] 01/22/23 14:31 DL 01/22/23 14:30 Wound Care [...] if develop any questions or concerns. 01/22/23 5601 <Electronically signed by Bonny Glynn NP FAIRING MAN-C> Cosigner Signature (if applicable): CC: ~ Signed [facility] Work Phone: 1(465) 680-775505-22-2023 Progress note Author Bonnyparris Glynn [facility] January 08, 2023 2:17pm Note Date/Time January 08, 2023 2:10p m [facility] [address] [place] [address] Progress Note - Wound Care 01/08/23 1407 MR#: [id number] Acct: [id number] Name: PEDRO HILLMAN Rep #:[id number] : 1945 77 From: Bonny garcia NP FAIRING MAN-C PCP: Dr. Tonio Fajardo, DO Status:REG RCR Location: History of Present Illness Date of Service: 01/08/23 Chief Complaint: right medial foot ulcer History of Wound: This 77-year-old male returns to the wound healing clinic for reoccurrence of a right medial foot ulcer. Wound care has been Moistened Cass covered with [place] SAP dressing. Patient diabetic neuropathic. Patient dealing [...] 14:53 01/08/23 13:37 Charges/Coding Procedures Integumentary 111xxx-113xx: 38894 Mihaela subq tissue 20 sq cm/< Debridement [...] Date Recorded By Document 12/18/22 13:20 PL [id number] 12/18/22 13:27 PL Document 12/25/22 14:53 DORA [id number] 12/25/22 14:54 DORA Document 01/08/23 13:37 NV [id number] 01/08/23 13:39 AK 12/18/22 12/25/22 01/08/23 13:20 14:53 13:37 - Today's Visit Information Type of service Follow-up Visit Follow-up Visit Follow-up Visit (Physician/TECHNICAL INFORMATION SPECIALIST (Physician/TECHNICAL INFORMATION SPECIALIST (Physician/TECHNICAL INFORMATION SPECIALIST ) ) ) Arrival Mode Ambulatory Ambulatory [...] Date Recorded By Document 12/18/22 13:20 PL [id number] 12/18/22 13:27 PL Document 12/25/22 14:53 [id number] 12/25/22 14:54 JF Document 01/08/23 13:37 NV [id number] 01/08/23 13:39 AK 12/18/22 12/25/22 01/08/23 13:20 [...] (34-66%) Small (1-33%) Medium (34-66%) -Granulation Quality Ignacio Pale -Slough/Fibrin No Yes Yes -Necrosis Amt [...] Recorded Date Recorded By Document 12/18/22 13:51 [id number] 12/18/22 13:53 Document 12/25/22 15:00 [id number] 12/25/22 15:10 Document 01/08/23 14:01 [id number] 01/08/23 14:02 12/18/22 12/25/22 01/08/23 13:51 15:00 [...] Date Recorded By Document 12/18/22 14:07 PL [id number] 12/18/22 14:07 PL Document 12/25/22 15:20 DL [id number] 12/25/22 15:20 DL 12/18/22 12/25/22 14:07 15:20 [...] 1417 <Electronically signed by Bonny Glynn NP FAIRING MAN-C> Cosigner Signature (if applicable): CC: ~ Signed [facility] Work Phone: 1(271) 331-703105-14-[address] Ochoa [facility] December 31, 2022 12:58am Note Date/Time December 30, 2022 11:08 pm [facility] System Medical Records Department [address] [place] [address] Emergency Department Summary 12/30/22 MR#: [id number] Acct: [id number] Name: PEDRO HILLMAN Rep #:[id number] : 1945 77 From: Chris Ochoa MD [...] similar symptoms: Yes Recent Illness/Hospitalization: No PFSH [facility] Medical History Anemia Atherosclerosis of coronary artery of [place] heart without angina pectoris BPH (benign prostatic [...] extremities. Nontender. No edema. No cellulitis. 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 Normal dorsi plantarflexion. Neurologically is awake [...] 83.3 H Lymph % (Auto) 6.4 L [place] % (Auto) 9.1 Eos % (Auto) 0.2 [...] Color Urine Clarity Urine pH Ur Specific [place] Urine Protein Urine Glucose (UA) Urine Ketones Urine Occult Blood Urine Nitrite Urine Bilirubin Urine Urobilinogen Ur Leukocyte Esterase Urine RBC Urine WBC Ur Squamous Epith Cells Urine Bacteria Urine Mucus 12/30/22 12/30/22 22:50 23:59 WBC RBC Hgb Hct MCV MCH MCHC RDW Std Deviation RDW Coeff of Reggie Plt Count MPV Immature Gran % (Auto) Neut % (Auto) Lymph % (Auto) [place] % (Auto) Eos % (Auto) Baso % [...] Clarity Clear Urine pH 7.0 Ur Specific [place] 1.005 Urine Protein 100 H Urine Glucose [...] your Primary Care Provider. Call [facility] ([phone]) or report to the closest Emergency Room. Call 911 if necessary. 12/31/22 0058 <Electronically signed by Chris Ochoa MD> Cosigner Signature (if applicable): CC: Dr. Tonio Fajardo, ~ Signed [facility] Work Phone: 1(124) [phone] Progress note Author Bonny Glynn [facility] December 25, 2022 3:36pm Note Date/Time December 25, 2022 3:36pm [facility] [address] [place] [address] Progress Note - Wound Care 12/25/22 1531 MR#: [id number] Acct: [id number] Name: KADYPEDRO Nora Rep #:[id number] : 1945 77 From: Bonny garcia FAIRING MAN FAIRING MAN-C PCP: Dr. Tonio Fajardo DO Status:REG RCR Location: History of Present Illness Date of Service: 12/25/22 Chief Complaint: right medial foot ulcer History of Wound: This 77-year-old male returns to the wound healing clinic for reoccurrence of a right medial foot ulcer. Wound care has been Moistened Cass covered with [place] SAP dressing. Patient diabetic neuropathic. Patient dealing [...] 14:53 12/25/22 14:53 Charges/Coding Procedures Integumentary 111xxx-113xx: 06170 Mihaela subq tissue 20 sq cm/< Debridement [...] Date Recorded By Document 12/18/22 13:20 PL [id number] 12/18/22 13:27 PL Document 12/25/22 14:53 [id number] 12/25/22 14:54 DORA 12/18/22 12/25/22 13:20 14:53 - Today's Visit Information Type of service Follow-up Visit Follow-up Visit (Physician/TECHNICAL INFORMATION SPECIALIST (Physician/TECHNICAL INFORMATION SPECIALIST ) ) Arrival Mode Ambulatory Ambulatory Transfer [...] Date Recorded By Document 12/18/22 13:20 KIM [id number] 12/18/22 13:27 KIM Document 12/25/22 14:53 DORA [id number] 12/25/22 14:54 DORA 12/18/22 12/25/22 13:20 14:53 [...] Amt Medium (34-66%) Small (1-33%) -Granulation Quality Ignacio -Slough/Fibrin No Yes -Necrosis Amt Medium (34-66%) [...] Recorded Date Recorded By Document 12/18/22 13:51 [id number] 12/18/22 13:53 Document 12/25/22 15:00 [id number] 12/25/22 15:10 12/18/22 12/25/22 13:51 15:00 Wound [...] Date Recorded By Document 12/18/22 14:07 PL [id number] 12/18/22 14:07 PL Document 12/25/22 15:20 DL [id number] 12/25/22 15:20 DL 12/18/22 12/25/22 14:07 15:20 [...] 1536 <Electronically signed by Bonny Glynn NP FAIRING MAN-C> Cosigner Signature (if applicable): CC: ~ Signed [facility] Work Phone: 1([phone]) 992-732205-01-2023 Progress note Author Bonny Glynn [facility] December 18, 2022 2:23pm Note Date/Time December 18, 2022 2:23pm [facility] [address] [place] [address] Progress Note - Wound Care 12/18/22 1419 MR#: [id number] Acct: [id number] Name: PEDRO HILLMAN Rep #:[id number] : 1945 77 From: Bonny garcia FAIRING MAN FAIRING MAN-C PCP: Dr. Tonio Fajardo, DO Status:REG RCR Location: History of Present Illness Date of Service: 12/18/22 Chief Complaint: right medial foot ulcer History of Wound: This 77-year-old male returns to the wound healing clinic for reoccurrence of a right medial foot ulcer. Wound care has been Moistened Cass covered with [place] SAP dressing. Patient diabetic neuropathic. Patient dealing [...] 13:20 12/18/22 13:20 Charges/Coding Procedures Integumentary 111xxx-113xx: 55912 Mihaela subq tissue 20 sq cm/< Debridement [...] Recorded Date Recorded By Document 12/18/22 13:20 [id number] 12/18/22 13:27 12/18/22 13:20 - Today's Visit Information Type of service Follow-up Visit (Physician/TECHNICAL INFORMATION SPECIALIST ) Arrival Mode Ambulatory Transfer Assistance None [...] Date Recorded By Document 12/18/22 13:20 KIM [id number] 12/18/22 13:27 12/18/22 13:20 Wound Center Nurse [...] Serosanguineous -Granulation Amt Medium (34-66%) -Granulation Quality Ignacio -Slough/Fibrin No -Necrosis Amt Medium (34-66%) -Necrotic [...] Recorded Date Recorded By Document 12/18/22 13:51 [id number] 12/18/22 13:53 DORA 12/18/22 13:51 Wound Center [...] Date Recorded By Document 12/18/22 14:07 PL [id number] 12/18/22 14:07 PL 12/18/22 14:07 Wound Care [...] 1423 <Electronically signed by Bonny Glynn NP FAIRING MAN-C> Cosigner Signature (if applicable): CC: ~ Signed [facility] Work Phone: [phone]) 107-741804-27-2023 Progress note Author Bonny Glynn [facility] December 14, 2022 2:56pm Note Date/Time December 11, 2022 3:2 7pm [facility] [address] [place] [address] Progress Note - Wound Care 12/11/22 1527 MR#: [id number] Acct: [id number] Name: PEDRO HILLMAN Rep #:[id number] : 1945 77 From: Bonny garcia FAIRING MAN FAIRING MAN-C PCP: Dr. Tonio Fajardo, DO Status:REG RCR Location: History of Present Illness Date of Service: 12/11/22 Chief Complaint: right medial foot ulcer History of Wound: This 77-year-old male returns to the wound healing clinic for reoccurrence of a right medial foot ulcer. Wound care has been Moistened Cass covered with [place] SAP dressing. Patient diabetic neuropathic. Patient dealing [...] Method Room Air Charges/Coding Procedures Integumentary 111xxx-113xx: 01856 Mihaela subq tissue 20 sq cm/< Debridement [...] Date Recorded By Document 11/20/22 14:43 DL [id number] 11/20/22 14:49 DL Document 11/27/22 14:25 BMF [id number] 11/27/22 14:27 BMF Document 12/06/22 11:35 DL [id number] 12/06/22 11:39 DL Document 12/11/22 13:12 BMF [id number] 12/11/22 13:21 BMF 11/20/22 11/27/22 12/06/22 14:43 14:25 11:35 - Today's Visit Information Type of service Follow-up Visit Follow-up Visit (Physician/TECHNICAL INFORMATION SPECIALIST (Physician/TECHNICAL INFORMATION SPECIALIST ) ) Arrival Mode Ambulatory,Cane Ambulatory Transfer [...] Visit Information Type of service Follow-up Visit (Physician/TECHNICAL INFORMATION SPECIALIST ) Arrival Mode Ambulatory,Cane Transfer Assistance None [...] Date Recorded By Document 11/20/22 14:43 DL [id number] 11/20/22 14:49 DL Document 11/27/22 14:25 [facility] [id number] 11/27/22 14:27 BMF Document 12/06/22 11:35 DL [id number] 12/06/22 11:39 DL Document 12/11/22 13:12 [facility] [id number] 12/11/22 13:21 BMF 11/20/22 11/27/22 12/06/22 14:43 [...] Amt Small (1-33%) Small (1-33%) -Granulation Quality Ignacio Pale -Slough/Fibrin -Necrosis Amt Small (1-33%) Small [...] Recorded Date Recorded By Document 11/20/22 15:00 [id number] 11/20/22 15:09 Edit Result 11/20/22 15:00 (1) [id number] 11/20/22 15:18 JF Edit Result 11/20/22 15:00 (2) [id number] 11/20/22 15:20 Document 11/27/22 14:50 [id number] 11/27/22 15:02 Document 12/06/22 11:46 [id number] 12/06/22 11:57 Document 12/11/22 13:30 [id number] 12/11/22 13:33 (1) #9 Right Inferior Hallux [...] => 08/20/27 - Product Lot Number => [id number] - Percent Used => 100 - Lot number of Saline Used => [id number] 11/20/22 11/27/22 12/06/22 15:00 14:50 11:46 Wound [...] Date 08/20/27 08/20/27 09/20/27 -Product Lot Number [id number] -Percent Used 100 100 100 -Lot number of Saline Used [id number] -Bleeding Controlled with Pressure Pressure Pressure -Treatment [...] Date Recorded By Document 11/20/22 15:35 DL [id number] 11/20/22 15:36 DL Document 11/27/22 15:02 JF [id number] 11/27/22 15:03 JF Document 12/06/22 11:57 JF [id number] 12/06/22 11:58 JF Document 12/11/22 13:57 DL [id number] 12/11/22 13:58 DL 11/20/22 11/27/22 12/06/22 15:35 [...] if develop any questions or concerns. 12/14/22 8642 <Electronically signed by Bonny Glynn NP FAIRING MAN-C> Cosigner Signature (if applicable): CC: ~ Signed [facility] Work Phone: 1(796) 811-252104-19-2023 Progress note Author Bonnyparris Glynn [facility] December 06, 2022 12:09pm Note Date/Time December 06, 2022 12: 09pm [facility] [address] [place] [address] Progress Note - Wound Care 12/06/22 1205 MR#: [id number] Acct: [id number] Name: PEDRO HILLMAN Rep #:[id number] : 1945 77 From: Bonny garcia NP FAIRING MAN-C PCP: Dr. Tonio Fajardo, DO Status:REG RCR Location: History of Present Illness Date of Service: 12/06/22 Chief Complaint: right medial foot ulcer History of Wound: This 77-year-old male returns to the wound healing clinic for reoccurrence of a right medial foot ulcer. Wound care has been Moistened Cass covered with [place] SAP dressing. Patient diabetic neuropathic. Patient dealing [...] 11:35 12/06/22 11:35 Charges/Coding Procedures Integumentary 150xxx-152xx: 14041 Skin sub graft face/nk/hf/g Debridement Note Debridement [...] Date Recorded By Document 11/20/22 14:43 DL [id number] 11/20/22 14:49 DL Document 11/27/22 14:25 [facility] [id number] 11/27/22 14:27 BM Document 12/06/22 11:35 DL [id number] 12/06/22 11:39 DL 11/20/22 11/27/22 12/06/22 14:43 14:25 11:35 - Today's Visit Information Type of service Follow-up Visit Follow-up Visit (Physician/TECHNICAL INFORMATION SPECIALIST (Physician/TECHNICAL INFORMATION SPECIALIST ) ) Arrival Mode Ambulatory,Cane Ambulatory Transfer [...] Date Recorded By Document 11/20/22 14:43 DL [id number] 11/20/22 14:49 DL Document 11/27/22 14:25 BMF [id number] 11/27/22 14:27 BMF Document 12/06/22 11:35 DL [id number] 12/06/22 11:39 DL 11/20/22 11/27/22 12/06/22 14:43 [...] Amt Small (1-33%) Small (1-33%) -Granulation Quality Ignacio Pale -Necrosis Amt Small (1-33%) Small (1-33%) [...] Date Recorded By Document 11/20/22 15:00 DORA [id number] 11/20/22 15:09 JF Edit Result 11/20/22 15:00 JF (1) [id number] 11/20/22 15:18 JF Edit Result 11/20/22 15:00 JF (2) [id number] 11/20/22 15:20 JF Document 11/27/22 14:50 JF [id number] 11/27/22 15:02 JF Document 12/06/22 11:46 [id number] 12/06/22 11:57 (1) #9 Right Inferior Hallux [...] => 08/20/27 - Product Lot Number => [id number] - Percent Used => 100 - Lot number of Saline Used => [id number] 11/20/22 11/27/22 12/06/22 15:00 14:50 11:46 Wound [...] Date 08/20/27 08/20/27 09/20/27 -Product Lot Number [id number] -Percent Used 100 100 100 -Lot number of Saline Used [id number] -Bleeding Controlled with Pressure Pressure Pressure -Treatment [...] Recorded Date Recorded By Document 11/20/22 15:35 [id number] 11/20/22 15:36 Document 11/27/22 15:02 [id number] 11/27/22 15:03 Document 12/06/22 11:57 [id number] 12/06/22 11:58 11/20/22 11/27/22 12/06/22 15:35 15:02 [...] 1209 <Electronically signed by Bonny Glynn NP FAIRING MAN-C> Cosigner Signature (if applicable): CC: ~ Signed [facility] Work Phone: 1(699) 420-887104-11-2023 Progress note Author Bonny Glynn [facility] November 28, 2022 5:24pm Note Date/Time November 27, 2022 3:1 4pm [facility] [address] [place] [address] Progress Note - Wound Care 11/27/22 1513 MR#: [id number] Acct: [id number] Name: PEDRO HILLMAN Rep #:[id number] : 1945 77 From: Bonny garcia NP FAIRING MAN-C PCP: Dr. Tonio Fajardo, DO Status:REG RCR Location: History of Present Illness Date of Service: 11/27/22 Chief Complaint: right medial foot ulcer History of Wound: This 77-year-old male returns to the wound healing clinic for reoccurrence of a right medial foot ulcer. Wound care has been Moistened Cass covered with [place] SAP dressing. Patient diabetic neuropathic. Patient dealing [...] 14:43 11/27/22 14:25 Charges/Coding Procedures Integumentary 150xxx-152xx: 64898 Skin sub graft face/nk/hf/g Debridement Note Debridement [...] Date Recorded By Document 11/20/22 14:43 DL [id number] 11/20/22 14:49 DL Document 11/27/22 14:25 [facility] [id number] 11/27/22 14:27 BM 11/20/22 11/27/22 14:43 14:25 - Today's Visit Information Type of service Follow-up Visit Follow-up Visit (Physician/TECHNICAL INFORMATION SPECIALIST (Physician/TECHNICAL INFORMATION SPECIALIST ) ) Arrival Mode Ambulatory,Cane Ambulatory Transfer [...] Date Recorded By Document 11/20/22 14:43 DL [id number] 11/20/22 14:49 DL Document 11/27/22 14:25 BM [id number] 11/27/22 14:27 BMF 11/20/22 11/27/22 14:43 14:25 [...] Thickened -Granulation Amt Small (1-33%) -Granulation Quality Ignacio -Necrosis Amt Small (1-33%) -Necrotic Tissue Type [...] Recorded Date Recorded By Document 11/20/22 15:00 [id number] 11/20/22 15:09 Edit Result 11/20/22 15:00 JF (1) [id number] 11/20/22 15:18 JF Edit Result 11/20/22 15:00 JF (2) [id number] 11/20/22 15:20 JF Document 11/27/22 14:50 [id number] 11/27/22 15:02 (1) #9 Right Inferior Hallux [...] => 08/20/27 - Product Lot Number => [id number] - Percent Used => 100 - Lot number of Saline Used => [id number] 11/20/22 11/27/22 15:00 14:50 Wound Center Nurse [...] -Expiration Date 08/20/27 08/20/27 -Product Lot Number [id number] -Percent Used 100 100 -Lot number of Saline Used [id number] -Bleeding Controlled with Pressure Pressure -Treatment Response [...] Recorded Date Recorded By Document 11/20/22 15:35 [id number] 11/20/22 15:36 DL Document 11/27/22 15:02 [id number] 11/27/22 15:03 11/20/22 11/27/22 15:35 15:02 Wound [...] 1724 <Electronically signed by Bonny Glynn NP FAIRING MAN-C> Cosigner Signature (if applicable): CC: ~ Signed [facility] Work Phone: 1(694) 453-759504-10-2023 Progress note Author Bonny Glynn [facility] November 26, 2022 10:29pm Note Date/Time November 20, 2022 4:18 pm [facility] [place] [address] Progress Note - Wound Care 11/20/22 1618 MR#: [id number] Acct: [id number] Name: PEDRO HILLMAN Rep #:[id number] : 1945 77 From: Bonny Gillis FAIRING MAN FAIRING MAN-C PCP: Dr. Tonio Fajardo, DO Status:REG RCR Location: History of Present Illness Date of Service: 11/20/22 Chief Complaint: right medial foot ulcer History of Wound: This 77-year-old male returns to the wound healing clinic for reoccurrence of a right medial foot ulcer. Wound care has been Moistened Cass covered with [place] SAP dressing. Patient diabetic neuropathic. Patient dealing [...] 14:43 11/20/22 14:43 Charges/Coding Procedures Integumentary 150xxx-152xx: 47075 Skin sub graft face/nk/hf/g Debridement Note Debridement [...] Date Recorded By Document 11/20/22 14:43 DL [id number] 11/20/22 14:49 DL 11/20/22 14:43 WC - Today's Visit Information Type of service Follow-up Visit (Physician/TECHNICAL INFORMATION SPECIALIST ) Arrival Mode Ambulatory,Cane Transfer Assistance None [...] Date Recorded By Document 11/20/22 14:43 DL [id number] 11/20/22 14:49 DL 11/20/22 14:43 Wound Center Nurse 1 #9 Right Inferior Hallux -Current Size (cm) - Length 0.2 -Current Size (cm) - Width 0.3 -Current Size (cm) - Depth 0.2 -Total Square Cm 0.06 -Photo Taken No -Exudate Amt Small -Exudate Type Serosanguineous -Wound Margin Thickened -Granulation Amt Small (1-33%) -Granulation Quality Ignacio -Necrosis Amt Small (1-33%) -Necrotic Tissue Type [...] Date Recorded By Document 11/20/22 15:00 JF [id number] 11/20/22 15:09 JF Edit Result 11/20/22 15:00 JF (1) [id number] 11/20/22 15:18 JF Edit Result 11/20/22 15:00 JF (2) [id number] 11/20/22 15:20 JF (1) #9 Right Inferior [...] => 08/20/27 - Product Lot Number => [id number] - Percent Used => 100 - Lot number of Saline Used => [id number] 11/20/22 15:00 Wound Center Nurse 2 -Time [...] Disc -Expiration Date 08/20/27 -Product Lot Number [id number] -Percent Used 100 -Lot number of Saline Used [id number] -Bleeding Controlled with Pressure -Treatment Response Procedure [...] Date Recorded By Document 11/20/22 15:35 DL [id number] 11/20/22 15:36 DL 11/20/22 15:35 Wound Care [...] 11/26/222228 <Electronically signed by Bonny Glynn NP FAIRING MAN-C> Cosigner Signature (if applicable): CC: ~ Signed [facility] Work Phone: 1(130) 926-460902-21-2023 Progress note Author Bonny Glynn [facility] October 10, 2022 3:29pm Note Date/Time October 09, 2022 4:10pm [facility] [address] [place] [address] Progress Note - Wound Care 10/09/22 1609 MR#: [id number] Acct: [id number] Name: PEDRO HILLMAN Rep #:[id number] : 1945 77 From: Bonny garcia FAIRING MAN FAIRING MAN-C PCP: Dr. Tonio Fajardo, DO Status:REG RCR Location: History of Present Illness Date of Service: 10/09/22 Chief Complaint: right foot ulcer History of Wound: This 77-year-old male returns to the wound healing clinic for reoccurrence of a right medial foot ulcer. Wound care has been Moistened Cass covered with [place] SAP dressing. Patient diabetic neuropathic. Patient dealing [...] Method Room Air Charges/Coding Procedures Integumentary 150xxx-152xx: 55051 Skin sub graft face/nk/hf/g Debridement Note Debridement [...] Date Recorded By Document 09/25/22 14:25 BMF [id number] 09/25/22 14:32 BMF Document 10/02/22 13:28 ML [id number] 10/02/22 13:32 ML Document 10/09/22 12:59 DL [id number] 10/09/22 13:04 DL 09/25/22 10/02/22 10/09/22 14:25 13:28 12:59 WC - Today's Visit Information Type of service Follow-up Visit Follow-up Visit Follow-up Visit (Physician/TECHNICAL INFORMATION SPECIALIST (Physician/TECHNICAL INFORMATION SPECIALIST (Physician/TECHNICAL INFORMATION SPECIALIST ) ) ) Arrival Mode Ambulatory,Cane Cane [...] Date Recorded By Document 09/25/22 14:25 BMF [id number] 09/25/22 14:32 BMF Document 10/02/22 13:28 ML [id number] 10/02/22 13:32 ML Document 10/09/22 12:59 DL [id number] 10/09/22 13:04 DL 09/25/22 10/02/22 10/09/22 14:25 [...] (0 Large (67-100%) %) -Granulation Quality Red Ignacio -Slough/Fibrin Yes Yes -Necrosis Amt Small (1-33%) [...] Recorded Date Recorded By Document 09/25/22 14:42 [id number] 09/25/22 14:51 Document 10/02/22 14:14 [id number] 10/02/22 14:17 Document 10/09/22 13:17 [id number] 10/09/22 13:26 09/25/22 10/02/22 10/09/22 14:42 14:14 [...] Date 06/20/27 05/20/27 06/20/27 -Product Lot Number [id number] 026 -Percent Used 100 100 100 -Lot number of Saline Used [id number] -Bleeding Controlled with Pressure Pressure Pressure -Treatment [...] Recorded Date Recorded By Document 09/25/22 14:52 [id number] 09/25/22 14:53 Document 10/02/22 14:18 [id number] 10/02/22 14:19 09/25/22 10/02/22 14:52 14:18 Wound [...] positive for Staphylococcus epidermidis and GNR lactose hooker up. I spoke with his PCP, Dr Fajardo, who was made aware of the results and he said he would treat him from these results. Follow up one week. 10/10/22 1529 <Electronically signed by Bonny Glynn NP FAIRING MAN-C> Cosigner Signature (if applicable): CC: ~ Signed [facility] Work Phone: 1(506) 269-845802-14-2023 Progress note Author Bonny Glynn [facility] October 03, 2022 4:51pm Note Date/Time September 26, 2022 1 :17pm [facility] [address] [place] [address] Progress Note - Wound Care 09/25/22 1501 MR#: [id number] Acct: [id number] Name: PEDRO HILLMAN Nora Rep #:[id number] : 1945 77 From: Bonny garcia NP FAIRING MAN-C PCP: Dr. Tonio Fajardo, DO Status:REG RCR Location: ADDENDUM by FAIRING MANShaggy Glynn on 10/03/22 at 1651 [place] [address] Procedures Integumentary 150xxx-152xx: 74519 Skin sub graft face/nk/hf/g 10/03/22 1651<Electronically signed by Bonny Glynn NP FAIRING MAN-C> Cosigner Signature (if applicable): cc: ~* Signed History of Present Illness Date of Service: 09/25/22 Chief Complaint: right foot ulcer History of Wound: This 77-year-old male returns to the wound healing clinic for reoccurrence of a right medial foot ulcer. Wound care has been Moistened Cass covered with [place] SAP dressing. Patient diabetic neuropathic. Patient dealing [...] Method Room Air Charges/Coding Procedures Integumentary 150xxx-152xx: 62064 Skin sub graft trnk/arm/leg Debridement Note Debridement [...] Recorded Date Recorded By Document 09/25/22 14:25 [facility] [id number] 09/25/22 14:32 [facility] 09/25/22 14:25 - Today's Visit Information Type of service Follow-up Visit (Physician/TECHNICAL INFORMATION SPECIALIST ) Arrival Mode Ambulatory,Cane Transfer Assistance None [...] Recorded Date Recorded By Document 09/25/22 14:25 [facility] [id number] 09/25/22 14:32 [facility] 09/25/22 14:25 Wound Center Nurse 1 [...] Date Recorded By Document 09/25/22 14:42 [facility]A [id number] 09/25/22 14:51 [facility] 09/25/22 14:42 Wound Center [...] Disc -Expiration Date 06/20/27 -Product Lot Number [id number] -Percent Used 100 -Lot number of Saline Used [id number] -Bleeding Controlled with Pressure -Treatment Response Procedure [...] Date Recorded By Document 09/25/22 14:52 DORA [id number] 09/25/22 14:53 DORA 09/25/22 14:52 Wound Care [...] 1317 <Electronically signed by Bonny Glynn NP FAIRING MAN-C> Cosigner Signature (if applicable): CC: ~ Signed [facility] Work Phone: 1(641) 287-474802-14-2023 Progress note Author Bonny Glynn [facility] October 03, 2022 4:49pm Note Date/Time October 02, 2022 2:57pm [facility] [address] [place] [address] Progress Note - Wound Care 10/02/22 1457 MR#: [id number] Acct: [id number] Name: PEDRO HILLMAN Rep #:[id number] : 1945 77 From: Bonny garcia FAIRING MAN FAIRING MAN-C PCP: Dr. Tonio Fajardo, DO Status:REG RCR Location: History of Present Illness Date of Service: 10/02/22 Chief Complaint: right foot ulcer History of Wound: This 77-year-old male returns to the wound healing clinic for reoccurrence of a right medial foot ulcer. Wound care has been Moistened Cass covered with [place] SAP dressing. Patient diabetic neuropathic. Patient dealing [...] Charges/Coding Visit Charges Office Visits / Consults: 73432 OV L3 Est (25 modifier) Procedures Integumentary 150xxx-152xx: 85407 Skin sub graft face/nk/hf/g Physical Exam Const [...] Date Recorded By Document 09/25/22 14:25 BMF [id number] 09/25/22 14:32 BMF Document 10/02/22 13:28 ML [id number] 10/02/22 13:32 ML 09/25/22 10/02/22 14:25 13:28 - Today's Visit Information Type of service Follow-up Visit Follow-up Visit (Physician/TECHNICAL INFORMATION SPECIALIST (Physician/TECHNICAL INFORMATION SPECIALIST ) ) Arrival Mode Ambulatory,Cane Cane Transfer [...] Recorded Date Recorded By Document 09/25/22 14:25 [facility] [id number] 09/25/22 14:32 BM Document 10/02/22 13:28 ML [id number] 10/02/22 13:32 ML 09/25/22 10/02/22 14:25 13:28 [...] Recorded Date Recorded By Document 09/25/22 14:42 [id number] 09/25/22 14:51 Document 10/02/22 14:14 [id number] 10/02/22 14:17 09/25/22 10/02/22 14:42 14:14 Wound [...] -Expiration Date 06/20/27 05/20/27 -Product Lot Number [id number] -Percent Used 100 100 -Lot number of Saline Used [id number] -Bleeding Controlled with Pressure Pressure -Treatment Response [...] Recorded Date Recorded By Document 09/25/22 14:52 [id number] 09/25/22 14:53 Document 10/02/22 14:18 [id number] 10/02/22 14:19 09/25/22 10/02/22 14:52 14:18 Wound [...] they should go to the ED. 10/03/22 9751 <Electronically signed by Bonny Glynn NP FAIRING MAN-C> Cosigner Signature (if applicable): CC: ~ Signed [facility] Work Phone: 1(258) 583-860101-10-2023 Progress note Author Bonny [facility] August 29, 2022 3:36pm Note Date/Time August 29, 2022 2 :32pm [facility] [address] [place] [address] Progress Note - Wound Care 08/29/22 1429 MR#: [id number] Acct: [id number] Name: PEDRO HILLMAN Rep #:[id number] : 1945 77 From: Bonny Gillis FAIRING MAN FAIRING MAN-C PCP: Dr. Tonio Fajardo, DO Status:REG RCR Location: History of Present Illness Date of Service: 08/29/22 Chief Complaint: right foot ulcer History of Wound: This 77-year-old male returns to the wound healing clinic for reoccurrence of a right medial foot ulcer. Wound care has been Moistened Cass covered with [place] SAP dressing. Patient diabetic neuropathic. Patient dealing [...] Method Room Air Charges/Coding Procedures Integumentary 111xxx-113xx: 93225 Mihaela subq tissue 20 sq cm/< Debridement [...] Recorded Date Recorded By Document 08/29/22 13:17 [facility] [id number] 08/29/22 13:22 [facility] 08/29/22 13:17 - Today's Visit Information Type of service Follow-up Visit (Physician/TECHNICAL INFORMATION SPECIALIST ) Arrival Mode Ambulatory,Cane Transfer Assistance None [...] Recorded Date Recorded By Document 08/29/22 13:17 [facility] [id number] 08/29/22 13:22 [facility] 08/29/22 13:17 Wound Center Nurse 1 [...] Recorded Date Recorded By Document 08/29/22 13:35 [id number] 08/29/22 13:40 08/29/22 13:35 Wound Center Nurse [...] Recorded Date Recorded By Document 08/29/22 13:47 [id number] 08/29/22 13:47 DL 08/29/22 13:47 Wound Care [...] help expedite wound healing. [facility] Epifix. Wound care - Silvercel as the primary dressing covered with [place] SAP (secondarydressing) daily after washing foot with [...] if develop any questions or concerns. 08/29/22 4176 <Electronically signed by Bonny Glynn NP FAIRING MAN-C> Cosigner Signature (if applicable): CC: ~ Signed [facility] Work Phone: 1(354) 158-169212-16-2022 Miscellaneous Notes* Telephone Encounter - Liseth Ortiz [...] advise. Jessie Rodriguez APRN.SHANI documented in this encounterPro[facility]08-20-2022 Miscellaneous Notes* Telephone Encounter - Ashley Mock - 04/08/2022 2:56 PM EDT Notified pt of results, daughter will call to get information on restrictions. Ashley Mock * Telephone Encounter - Ashley Mock - 04/08/2022 9:18 AM EDT left message on machine to give call back, different number from pharmacy. [phone]. Ashley Mock * Telephone Encounter - Ashley Mock - 04/07/2022 5:48 PM EDT Unable to reach patient. Mailbox full/Mailbox not set up/ Number incorrect. Please try again later. Ahsley Mock * Telephone Encounter - Sigrid Monroe LPN - 04/06/2022 6:48 PM EDT Still unable to reach patient and personalized living manager is spouse with same number.Sigrid Monroe LPN [...] symptoms; ER if severe. documented in this encounterProtestant [facility]acon[facility]08-17-2022 NoteHNO ID: [id number] Author: Jessie Rodriguez APRN.TECHNICAL INFORMATION SPECIALIST Service: ? Author Type: Nurse Practitioner Type: [...] - COVID WITH FLUA+B, ROUTINE Jessie Praisler-Wood, FISHING WORKER.CNPCincinnati [facility] Center08-17-2022 NoteHNO ID: [id number] Author: RT Jose Eduardo(R) Service: Nuclear Medicine [...] RT Jose Eduardo(R) April 05, 2022 1:55 [facility]08-17-2022 Influenza virus A and B RNA and SARS-CoV-2 (COVID-19) N gene panel BRYAN+probe (Resp)COVID 19 RESULT: SARS-CoV-2 (Agent of COVID-19) Detected by RT-PCR or equivalent method. anatoly KEEF-SsA-0_[employer] (YASMEEN)_EUA This test was developed and its performance characteristics determined by [facility]'s [facility] [place]. This test has been authorized by FDA under an Emergency Use Authorization (EUA). This test has been validated in accordance with the FDA's Guidance Document Policy for DiagnosticsTesting in Laboratories Certified to Perform High Complexity Testing under CLIA prior to Emergency use Authorization for Coronavirus Disease 2019 during the Public Health Emergency issued on October 18, 2019. Test performed by [facility], [facility]ology and Laboratory [facility] [place], [address] [place] [address]. INFLUENZA A PCR: Negative for Influenza A by RT-PCR INFLUENZA B PCR: Negative for Influenza B by [facility]-PCRWilson [facility] on above: Performed By: #### [id number] #### [facility] CLIA [id number] [address] [place] [address] [place] [id number] Miscellaneous Notes* Telephone Encounter - Jessie Rodriguez APRN.CNP - 04/05/2022 2:58 PM EDT Radiology report faxed to patient's PCP Dr. Tonio Fajardo at [phone]. Confirmation of fax received. Patient was advised to call Dr. Fajardo today for a follow up appointment. Jessie Rodriguez APRN.CNP documented in this encounterProtestant [facility]acon[facility]08-17-2022 Instructions* Patient Instructions* Jessie Rodriguez APRN.CNP [...] - COVID WITH FLUA+B, ROUTINE Jessie Rodriguez APRN.TECHNICAL INFORMATION SPECIALIST documented in this encounterProtestant [facility]acon[facility]08-17-2022 History of Present illness Narrative* Jessie [...] ROUTINE Jessie Rodriguez APRN.SHANI documented in this encounterProtestant [facility]acon[facility]08-17-2022 History of Present illness Narrative* Yuliana [...] 05, 2022 1:55 PM documented in [facility] encounterMer[facility] note Author Mala Diamond [facility] Note Date/Time March 09, 2025 2:58 pm [facility] Medical Records Department [address] [place] [address] Counseling Note - Pharmacy 03/09/25 1457 MR#: [id number] Acct: [id number] Name: PEDRO HILLMAN Rep #:[id number] : 1945 80 From: Mala Diamond PCP: Dr. 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 Venous insufficiency chronic Ulcer of right foot with fat layer exposed resolved [facility] Work Phone: Evaluation note* Diagnosis Onset Date Resolution Status Malnutrition chronic 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 Venous insufficiency chronic Ulcer of right foot with fat layer exposed resolved Malnutrition chronic 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 Venous insufficiency chronic Ulcer of right foot with fat layer exposed resolved [facility] Work Phone: Evaluation note* Diagnosis Onset Date [...] right foot with fat layer exposed resolved [facility] Work Phone: Evaluation note* Diagnosis Onset Date [...] 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 [facility] Work Phone: Evaluation note* Diagnosis Onset Date [...] right foot with fat layer exposed resolved [facility] Work Phone: Evaluation note* Diagnosis Burning with urination- Primary Dysuria Acute cough Suspected COVID-19 virus infection documented [facility] this encounter [facility]* Diagnosis Onset Date Resolution Status [...] acute Nicotine dependence, cigarettes, in remission acute [facility] Work Phone: Evaluation note* Diagnosis Onset Date [...] right foot with fat layer exposed resolved [facility] Work Phone: Evaluation note* Diagnosis Onset Date [...] right foot with fat layer exposed resolved [facility] Work Phone: Evaluation note* Diagnosis Onset Date [...] of upper lobe of right lung acute [facility] Work Phone: Evaluation note* Diagnosis Onset Date [...] of upper lobe of right lung acute [facility] Work Phone: Evaluation note* Diagnosis Onset Date [...] of upper lobe of right lung acute [facility] Work Phone: Evaluation note* Diagnosis Onset Date [...] chronic Presence of aortocoronary bypass graft 2012 [facility] Work Phone: Evaluation note* Diagnosis Onset Date [...] layer exposed resolved 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 [...] right foot with fat layer exposed chronic [facility] Work Phone: Evaluation note* Diagnosis Onset Date [...] right foot with fat layer exposed chronic [facility] Work Phone: Evaluation note* Diagnosis Onset Date [...] layer exposed chronic Shortness of breath chronic [facility] Work Phone: Evaluation note* Diagnosis Onset Date [...] of upper lobe of right lung chronic [facility] Work Phone: Evaluation note* Diagnosis Onset Date [...] of upper lobe of right lung chronic [facility] Work Phone: Evaluation note* Diagnosis Onset Date [...] right foot with fat layer exposed chronic [facility] Work Phone: Evaluation note* Diagnosis Onset Date [...] right foot with fat layer exposed chronic [facility] Work Phone: Evaluation note* Diagnosis Onset Date [...] right foot with fat layer exposed chronic [facility] Work Phone: Evaluation note* Diagnosis Onset Date [...] right foot with fat layer exposed chronic [facility] Work Phone: Evaluation note* Diagnosis Onset Date [...] right foot with fat layer exposed chronic [facility] Work Phone: Evaluation note* Diagnosis Onset Date [...] right foot with fat layer exposed resolved [facility] Work Phone: Evaluation note* Diagnosis Onset Date [...] right foot with fat layer exposed chronic [facility] Work Phone: Evaluation note* Diagnosis Onset Date [...] of upper lobe of right lung chronic [facility] Work Phone: Evaluation note* Diagnosis Onset Date Resolution Status Irregular heart rate acute COPD (chronic obstructive pulmonary disease) chronic 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 Plenty of fluids and rest today do not get dehydrated. Return if you are feeling a lot worse or too weak to get around her house. Follow-up with your doctor in the next several days to ensure you are improving. [facility] Work Phone: Hospital Discharge instructions Additional Instructions 1. Keep your postoperative dressing clean dry and intact 2. Continue strict glycemic control. 3. Partial weightbearing to heel with surgical shoe, use walker or crutches 4. Reach out to Dr. Suárez with any questions or concerns and follow-up in 1 week in clinic. 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 March 04, 2025 [...] 15, 2025 4:56 pm 6 M FU/S/P [facility] 03/09March 17, 2025 12: 51pm atrial fibrillation March 27, 2025 8:3 7am Advance Directives No Advanced Directives Records Found Advance Directive Response Recorded Date/ Time Advance Directives No February 17 4 11:03am Living Will No February 17, 2014 1 1:03am Power of Metal Off Bearer No February 17, 2014 11:03am Advance Directive Response Recorded Date/ Time Name of Medical Power of Metal Off Bearer SON April 14, 2022 8:29am Advance Directives No February 17 4 11:03am Living Will No April 14 2 8:29am Power of Metal Off Bearer Yes April 14 022 8:29am Advance Directive Response Recorded Date/ Time Name of Medical Power of Metal Off Bearer SON April 14, 2022 7:29am Advance Directives No February 17 4 10:03am Living Will No April 14 2 7:29am Power of Metal Off Bearer Yes April 14 022 7:29am Advance Directive Response Recorded Date/ Time Advance Directives No February 17 4 10:03am Living Will No April 14 2 7:29am Power of Metal Off Bearer Yes April 14 7:29am Advance Directive Response Recorded Date/ Time Advance Directives No February 17 11:03am Living Will No April 14 8:29am Power of Metal Off Bearer Yes April 14 8:29am Advance Directive Response Recorded Date/ Time Name of Medical Power of Metal Off Bearer Gideon Yumiko December 30, 2022 10:39pm Advance Directives No February 17 11:03am Living Will Yes December 30, 2022 1 0:39pm Power of Metal Off Bearer Yes December 30, 2022 10:39pm Advance Directive Response Recorded Date/ Time Advance Directives No February 17 11:03am Living Will Yes December 30, 2022 1 0:39pm Power of Metal Off Bearer Yes December 30, 2022 10:39pm Advance Directive Response Recorded Date/ Time Advance Directives No February 17 10:03am Living Will Yes December 30, 2022 9 :39pm Power of Metal Off Bearer Yes December 30, 2022 9:39pm Advance Directive Response Recorded Date/ Time Living Will Yes December 30, 2022 1 0:39pm Power of Metal Off Bearer Yes December 30, 2022 10:39pm Advance Directives No February 17 11:03am Advance Directive Response Recorded Date/ Time Living Will Yes December 30, 2022 1 0:39pm Do you have a Healthcare Power of Metal Off Bearer? Yes December 30, 2022 10:39pm Living Will No April 14 8:29am Do you have a Healthcare Power of Metal Off Bearer? Yes April 14, 2022 8:29am Advance Directives No February 17 11:03am Advance Directive Response Recorded Date/ Time Living Will No April 14 8:29am Do you have a Healthcare Pow er of Metal Off Bearer? Yes April 14, 2022 8:29am Do you have a Healthcare Pow er of Metal Off Bearer? Yes March 04, 2025 2:58pm Name of Medical Power of Metal Off Bearer Ed Daja olmstead March 04, 2025 2:58pm Advance Directives No February 17 11:03am Advance Directive Response Recorded Date/ Time Do you have a Healthcare Power of Metal Off Bearer? Yes March 04, 2025 9:11pm Name of Medical Power of Metal Off Bearer Gideon olmstead March 04, 2025 2:58pm Advance Directives No February 17 4 11:03am Advance Directive Response Recorded Date/ Time Do you have a Healthcare Power of Metal Off Bearer? Yes March 04, 2025 9:11pm Name of Medical Power of Metal Off Bearer Gideon olmstead March 04, 2025 2:58pm Do you have a Healthcare Power of Metal Off Bearer? Yes March 15, 2025 5:04pm Name of Medical Power of Metal Off Bearer Gideon Farnsworth March 15, 2025 5:04pm Advance [...] or prosecute any alcohol or drug abuse patient.[facility] the event this information is protected by the Federal Confidentiality of Alcohol and Drug Abuse Patient Records regulations: The Federal rules restrict any use of the information to criminally investigate or prosecute any alcohol or drug abuse patient.[facility] the event this information is protected by the Federal Confidentiality of Alcohol and Drug Abuse Patient Records regulations: The Federal rules restrict any use of the information to criminally investigate or prosecute any alcohol or drug abuse patient.[facility] Hospital[facility] the event this information is protected by the Federal Confidentiality of Alcohol and Drug Abuse Patient Records regulations: The Federal rules restrict any use of the information to criminally investigate or prosecute any alcohol or drug abuse patient.[facility] Hospital[facility] the event this information is protected by the Federal Confidentiality of Alcohol and Drug Abuse Patient Records regulations: The Federal rules restrict any use of the information to criminally investigate or prosecute any alcohol or drug abuse patient.[facility] Reason for Visit (unrecogniz ed section and content) Reason Comments Results Reason Comments Urinary Problem burning with urinati on x 1 week nasal congestion and drainage x 1 week Reason Comments Results COVID+ Reason Comments Patient Update Care Teams (unrecognized sec tion and content) Home Help Aide Relationship Specialty Start Date End Date Tonio Fajardo, [address] [place], [place] [id number] PCP - General Family Practice 04/05/22 Home Help Aide Relationship Specialty Start Date End Date Tonio Fajardo [address] [place], [place] [id number] PCP - General Family Practice 04/05/22 Home Help Aide Relationship Specialty Start Date End Date Tonio Fajardo [address] [place], [place] [id number] PCP - General Family Practice 04/05/22 Home Help Aide Relationship Specialty Start Date End Date Tonio FajardoDO [address] [place], [place] [id number] PCP - General Family Medicine 04/05/22 Team Status: Active Member Role Status Dates Dr. Tonio Fajardo DO Family Provider Active Dr. Tonio Fajardo DO Primary Care Provider Active Team Status: Inactive Member Role Status Dates Dr. Tonio Fajardo , DO Primary Care Provider, Referrin g Provider Active Iker Rodriguez FAIRING MAN, FAIRING MAN-C Attending Provider Active Team Status: Inactive Member [...] DO Primary Care Provider Active Bonny Glynn FAIRING MAN, FAIRING MAN-C Attending Pro vider, Referring Provider, Other Provider [...] DO Primary Care Provider Active Bonny Glynn FAIRING MAN, FAIRING MAN-C Attending Provider Active Team Status: Active Member [...] DO Primary Care Provider Active Bonny Glynn FAIRING MAN, FAIRING MAN-C Attending Provider Active Team Status: Inactive Member Role Status Dates Dr. Tonio Fajardo , DO Primary Care Provider Active Bonnyap PeresRenard FAIRING MAN, FAIRING MAN-C Attending Provider, Referri ng Provider Active Team Status: Inactive Member Role Status Dates Dr. Tonio Fajardo , DO Primary Care Provider, Referrin g Provider Active Dr. Tyrell Uriarte DO Attending Provider Active Team Status: Active Member Role Status Dates Dr. Tonio Fajardo , DO Primary Care Provider Active Bonny Glynn FAIRING MAN, FAIRING MAN-C Attending Provider, Other P rovider Active Team [...] Provider, Referrin g Provider Active Bonny Glynn FAIRING MAN, FAIRING MAN-C Attending Provider Active Team Status: Inactive Member [...] Provider, Referrin g Provider Active Lorie Mart FAIRING MAN, FAIRING MAN-C Attending Provider Active Team Status: Inactive Member Role Status Dates Dr. Tonio Fajardo DO Primary Care Provider, Referrin g Provider Active Leslie DAMIAN PA Attending Provider Active Team Status: Inactive Member Role Status Dates Dr. Tonio Fajardo DO Primary Care Provider Active Lorie Mart FAIRING MAN, FAIRING MAN-C Attending Provider, Referrin g Provider Active Team [...] Dr. Joaquim Suárez DPM Attending Provider Active Home Help Aide Relationship Specialty Start Date End Date Tonio Fajardo DO [address] [place] [address] PCP - General Family Medicine 04/05/22 Team [...] 2024 End: October 16, 2024 Lorie Mart FAIRING MAN, FAIRING MAN-C Attending Provider Active Start: October 16, 2024 End: October 16, 2024 Lorie Mart FAIRING MAN, FAIRING MAN-C Referring Provider Active Start: October 16, 2024 End: October 16, 2024 Team Status: Active Member Role Status Dates Dr. Tonio Fajardo DO Primary Care Provider Active Start: October 17, 2024 Lorie Mart FAIRING MAN, FAIRING MAN-C Referring Provider Active Start: October 17, 2024 Lorie Mart FAIRING MAN, FAIRING MAN-C Other Provider Active Start: October 17, 2024 [...] 2024 End: October 23, 2024 Lorie Mart FAIRING MAN, FAIRING MAN-C Attending Provider Active Start: October 23, 2024 [...] End: March 09, 2025 Iker Stephens Michael FAIRING MAN, FAIRING MAN-C Other Provider Active Start : March 04, [...] Start: March 05, 2025 Iker Angelo Michael FAIRING MAN, FAIRING MAN-C Other Provider Active Start : March 05, [...] Provider Active Start: March 06, 2025 Dr. Chirs Ochoa MD Emergency Provider Active S tart: [...] Active Start: March 06, 2025 Iker Rodriguez FAIRING MAN, FAIRING MAN-C Other Provider Active Start : March 06, [...] Active Start: March 06, 2025 Iker Rodriguez FAIRING MAN, FAIRING MAN-C Other Provider Active Start : March 06, [...] Active Start: March 07, 2025 Iker Rodriguez FAIRING MAN, FAIRING MAN-C Other Provider Active Start : March 07, [...] Active Start: March 08, 2025 Iker Rodriguez FAIRING MAN, FAIRING MAN-C Other Provider Active Start : March 08, [...] Active Start: March 08, 2025 Iker Rodriguez FAIRING MAN, FAIRING MAN-C Other Provider Active Start : March 08, [...] Active Start: March 09, 2025 Iker Rodriguez FAIRING MAN, FAIRING MAN-C Other Provider Active Start : March 09, [...] Active Start: March 09, 2025 Iker Rodriguez FAIRING MAN, FAIRING MAN-C Other Provider Active Start : March 09, [...] section and content) DATE CREATED AUTHOR 08/12/2022 [facility] DATE CREATED AUTHOR 'S YAMILKA LEMUS 04/04/2025 [facility] FOR RECORDS PERTAINING TO PATIENTS WHO [...] BE BASED ON THE PRIMARY CLINICAL RECORDS. [employer] provides no warranty or guarantee of the accuracy or completeness of information in this document.
--- OUTSIDE RECORDS SUMMARY | 2025-04-05 20:13 | XMS RPT_ITS | CCD ---
Author Organization [facility] [employer] Care Team Providers Care Rail Bonder Name Role Phone Dr. Tonio Fajardo Primary Care Provider [phone] Dr. Tonio Fajardo Referring Provider [phone] Issa Looney Attending Provider [phone] Tonio Fajardo DO Primary Care Provider Dr. Tyrell Uriarte Attending Provider [phone] Tonio Fajardo Primary Care Provider [phone] Dr. Tonio Fajardo Referring Provider Brittny COFFIN MAKER, COFFIN MAKER-C Lorie Attending Provider [phone] Dr. Russ Zamora Attending Provider Renard COFFIN MAKER, COFFIN MAKER-C Bonny E Attending Provider [phone] Renard COFFIN MAKER, COFFIN MAKER-C Bonny E Referring Provider [phone] Renard COFFIN MAKER, COFFIN MAKER-C Bonny E Other Provider Dr. Srini Choi [...] Kenyon Flores Referring Provider Unava mp Mart COFFIN MAKER, COFFIN MAKER-C Lorie Attending Provider Dr. Russ Zamora Attending Provider Renard COFFIN MAKER, COFFIN MAKER-C Bonny E Attending Provider Renard COFFIN MAKER, COFFIN MAKER-C Bonny E Referring Provider Renard COFFIN MAKER, COFFIN MAKER-C Bonny E Other Provider Dr. Srini Choi Attending Provider Dr. Srini Choi Referring Provider Dr. Srini Choi Other Provider Dr. Mateo Shahid Attending Provider Roof COFFIN MAKER, COFFIN MAKER-C Iker Stephens Attending Provider Tonio Fajardo DO Primary Care Provider JESSIE RODRIGUEZ Referring Unavailable TONIO FAJARDO Primary Care Unavailable TONIO FAJARDO Primary Care Unavailable Dr. Tonio Fajardo Primary Care Provider Dr. Tonio Fajardo Referring Provider Dr. Tonio Fajardo Primary Care Provider Renard COFFIN MAKER, COFFIN MAKER-C Bonny E Attending Provider Renard COFFIN MAKER, COFFIN MAKER-C Bonny E Referring Provider [phone] Renard COFFIN MAKER, COFFIN MAKER-C Bonny E Other Provider Dr. Tonio Fajardo Referring Provider Dr. Russ Zamora Attending Provider Dr. Tonio Fajardo Primary Care Provider Dr. Srini Choi Attending Provider Dr. Srini Choi Referring Provider Renard COFFIN MAKER, COFFIN MAKER-C Bonny E Attending Provider Renard COFFIN MAKER, COFFIN MAKER-C Bonny E Referring Provider [phone] Renard COFFIN MAKER, COFFIN MAKER-C Bonny E Other Provider Dr. Toino Fajardo Referring Provider Dr. Russ Zamora Attending Provider Dr. Tonio Fajardo Primary Care Provider Renard COFFIN MAKER, COFFIN MAKER-C Bonny E Attending Provider Renard COFFIN MAKER, COFFIN MAKER-C Bonny E Referring Provider Renard COFFIN MAKER, COFFIN MAKER-C Bonny E Other Provider Dr. Tonio Fajardo Referring Provider Dr. Russ Zamora Attending Provider Dr. Srini Choi Attending Provider Dr. Tyrell Uriarte Attending Provider Dr. Tonio Fajardo Primary Care Provider Renard COFFIN MAKER, COFFIN MAKER-C Bonny E Attending Provider [phone] Renard COFFIN MAKER, COFFIN MAKER-C Bonny E Referring Provider Renard COFFIN MAKER, COFFIN MAKER-C Bonny E Other Provider Dr. Tonio Fajardo Primary Care Provider Renard COFFIN MAKER, COFFIN MAKER-C Bonny E Attending Provider [phone] Renard COFFIN MAKER, COFFIN MAKER-C Bonny E Referring Provider Renard COFFIN MAKER, COFFIN MAKER-C Bonny E Other Provider [phone] Dr. Tonio Fajardo Primary Care Provider Renard COFFIN MAKER, COFFIN MAKER-C Bonny E Attending Provider Renard COFFIN MAKER, COFFIN MAKER-C Bonny E Referring Provider [phone] Renard COFFIN MAKER, COFFIN MAKER-C Bonny E Other Provider Dr. Tonio Fajardo Referring Provider Dr. Tonio Fajardo Primary Care Provider Renard COFFIN MAKER, COFFIN MAKER-C Bonny E Attending Provider [phone] Renard COFFIN MAKER, COFFIN MAKER-C Bonny E Referring Provider [phone] Renard COFFIN MAKER, COFFIN MAKER-C Bonny E Other Provider Dr. Tonio Fajardo Primary Care Provider Renard COFFIN MAKER, COFFIN MAKER-C Bonny E Attending Provider Renard COFFIN MAKER, COFFIN MAKER-C Bonny E Referring Provider Renard COFFIN MAKER, COFFIN MAKER-C Bonny E Other Provider Dr. Tonio Fajardo Primary Care Provider Renard COFFIN MAKER, COFFIN MAKER-C Bonny E Attending Provider Renard COFFIN MAKER, COFFIN MAKER-C Bonny E Referring Provider Renard COFFIN MAKER, COFFIN MAKER-C Bonny E Other Provider Dr. Tonio Fajardo Referring Provider Dr. Russ Zamora Attending Provider Dr. Tonio Fajardo Primary Care Provider Renard COFFIN MAKER, COFFIN MAKER-C Bonny E Attending Provider Renard COFFIN MAKER, COFFIN MAKER-C Bonny E Referring Provider Renard COFFIN MAKER, COFFIN MAKER-C Bonny E Other Provider Dr. Francisco Javier Lozada Attending Provider Dr. Joaquim Suárez Referring Provider Dr. Tonio Fajardo Primary Care Provider Renard COFFIN MAKER, COFFIN MAKER-C Bonny E Attending Provider Renard COFFIN MAKER, COFFIN MAKER-C Bonny E Referring Provider [phone] Renard CAMPUZANO, COFFIN MAKER-C Bonny Melendez Other Provider Dr. Tonio Fajardo Referring Provider Dr. Russ Zamora Attending Provider Dr. Francisco Javier Lozada Attending Provider Dr. Joaquim Suárez Referring Provider Dr. Tonio Fajardo Primary Care Provider Brittny COFFIN MAKER, COFFIN MAKER-C Lorie Attending Provider [phone] RICKIE Alejandra Attending Provider Dr. Tonio Fajardo [...] Referring Provider Brittny CAMPUZANO-CLorie Attending Provider Brittny COFFIN MAKER-C, Lorie Referring Provider Brittny COFFIN MAKER-C, Lorie Other Provider [phone] Tyrell Uriarte DO Attending Provider [phone] Tonio Fajardo DO Attending Provider Sera STRATTON, Dr. Solano Attending Provider Sera STRATTON, Dr. Solano Referring Provider Scotty MCGEE, Dr. Elizalde Primary Care Provider [place] , Dr. Milligan Other Provider Scotty MCGEE, Dr. Elizalde Primary Care Provider Scotty MCGEE, Dr. Elizalde Referring Provider Sera STRATTON, Dr. Solano Attending Provider Sera STRATTON, Dr. Solano Referring Provider Don STRATTON, Dr. Perez Emergency Provider [phone] Lindsey DO, Dr. Petersen Admit Provider Unavail able Lindsey DO, Dr. Petersen Attending Provider Unav ailable Scotty MCGEE, Dr. Elizalde Primary Care Provider Lindsey DO, Dr. Petersen Other Provider Unavail able Grzeogrz STRATTON, Dr. Leos Attending Provider Te STRATTON, [...] Shadi STRATTON, Dr. Graham Other Provider Michael COFFIN MAKER-C, Iker Stephens Other Provider Leslie Alejandra Other Provider Tadeo Fink Other Provider Grzegorz STRATTON, Dr. Leos Other Provider [phone] Peter STRATTON, Dr. Amador Attending Provider Jailyn STRATTON, Dr. Dorsey Attending Provider Florencio STRATTON, Dr. Johnson Emergency Provider [phone] Scotty MCGEE, Dr. Elizalde Referring Provider [phone] Unavailable Scotty, Tonio Primary Care Unavailable Mart COFFIN MAKER, Lorie Referring Unavailable Mart COFFIN MAKER, Lorie Consulting Unavailable Scotty, Tonio Primary Care Unavailable Tyrell Uriarte Attending Unavailable Brittny COFFIN MAKER, Lorie Referring Unavailable Brittny COFFIN MAKERLorie Attending Unavailable Scotty, Tonio Primary Care Unavailable Russ Zamora Referring Unavailable Scotty, Tonio Primary Care Unavailable Russ Zamora Attending Unavailable Russ Zamora Referring Unavailable Scotty, Tonio Primary Care Unavailable Russ Zamora Attending Unavailable Leslie Alejandra Referring Unavail able Leslie Aeljandra Attending Unavail able Scotty, Tonio Primary Care [...] Consulting Unavailabl e Satti, Reinaldo Consulting Unavailable Miracle, Santos Consulting Unavailable Roof COFFIN MAKER, Iker Stephens Consulting Unavailable Leslie Alejandra Consulting [...] Consulting Unavailable Jose Lai Consulting Unavailable Aayush, [place] Consulting Unavailable Chago Miller Consulting Unavailable Willian Glaser Consulting Unavailable Nagajothi, Nagapradee Consulting Unavailabl e Satti, Reinaldo Consulting Unavailable Miracle, Santos Consulting Unavailable Roof COFFIN MAKER, Iker Stephens Consulting Unavailable Leslie Alejandra Consulting [...] [IBUPROFEN] Drug Allergy 2 Shortness of Breath [facility] Work Phone: (1 source) Ibuprofen Drug Allergy 5 [facility] Repository Medications Current Medications Medication Drug [...] 27, 2019 12:36pm take 1 capsule by [facility] once daily cholecalciferol, vitamin D3, (VITAMIN D-3) 10 mcg (400 unit) cap Take 400 Units by mouth once daily. Active Comment on above: Take 400 Units by [facility] once daily. colestipol hydrochloride 1000 mg [...] meals Start: 07-25-2023 take 1 capsule by [facility] once daily at mealtime Cranberry 500 [...] 1:00am Start: 04-14-2022 take 1 capsule by [facility] once daily as needed Docusate Sodium (Colace) 100 mg Capsule Active 100 MG PO DAILY NEEDED April 14, 2022 12:00am fish oil/borage/flax/om3,6,9 1 ([place] 3-6-9 COMPLEX ORAL) (5 sources) fish oil/borage/ flax/om3,6,9 1 (OMEGA 3-6-9 COMPLEX ORAL) Take by mouth. Active fish oil/borage/ flax/om3,6,9 1 (OMEGA 3-6-9 COMPLEX ORAL) Take by mouth. 0 Active Comment on above: Take by mouth. Fish,Bora,Flax Oils-Om3,6,9no1 ([place] 3-6-9) 1,200 mg Capsule (8 sources) Start: 11-02-2021 take 1 capsule by mouth twice daily Fish,Bora,Flax Oils-Om3,6,9no1 ([place] 3-6-9) 1,200 mg Capsule Active 1 CAP PO TWICE A DAY November 02, 2021 1:31pm Start: 11-02-2021 take 1 capsule by mo [facility] twice daily Fish,Bora,Flax Oils-Om3,6,9no1 ([place] 3-6-9) 1,200 mg Capsule Active 1 CAP [...] 07, 2014 12:00am November 19, 2019 3:48pm [id number] 200 actuat albuterol 0.09 mg/actuat metered dose [...] on above: Take 1 capsule by mo [facility] three times daily for 10 days. ciprofloxacin [...] 26, 2013 10:41am Fish Oil-Fat Acid Comb.8-Hb137 ([place] 3-6-9 1,200 Mg Softgel) 1,200 MG capsule (20 sources) Start: 12-03-2013 End: 03-21-2017 Fish Oil-Fat Acid Comb.8-Hb137 ([place] 3-6-9 1,200 Mg Softgel) 1,200 MG capsule Discontinued 1000 MG PO TWICE A DAY December 03, 2013 11:07am March 21, 2017 2:47pm Start: 12-03-2013 End: 03-21-2017 Fish Oil-Fat Acid Comb.8-Hb1 37 ([place] 3-6-9 1,200 Mg Softgel) 1,200 MG capsule Discontinued 1000 mg PO TWICE A DAY December 03, 2013 12:00am March 21, 2017 2:47pm Start: 12-03-2013 End: 03-21-2017 Fish Oil-Fat Acid Comb.8-Hb1 37 ([place] 3-6-9 1,200 Mg Softgel) 1,200 MG capsule Discontinued 1000 MG PO TWICE A DAY December 02, 2013 11:00pm March 21, 2017 1:47pm Start: 12-03-2013 End: 03-21-2017 Fish Oil-Fat Acid Comb.8-Hb1 37 ([place] 3-6-9 1,200 Mg Softgel) 1,200 MG capsule [...] 21, 2017 12:00am November 19, 2019 3:48pm Ubcrmofdzby-Nxzlviuni-Xfwwff er (9 sources) Start: 02-15-2024 End: 09-25-2024 Ocgdpxocqmr-Vofcbrlbs-Ahztfc er (Trelegy Ellipta) 200-62.5-25 mcg blister with device Discontinued 1 NMA INHALATION DAILY 3 February 15, 2024 12:00am September 25, 2024 2:02pm Start: 02-15-2024 End: 09-25-2024 Ruwrppkycwp-Gyvfnqzxf-Trbnlc er (Trelegy Ellipta) 200-62.5-25 mcg blister with [...] 12:00am August 25, 2013 10:01am lactobacillus acidophilus [id number] unt oral capsule (20 sources) Start: 05-24-2022 [...] August 25, 2013 10:01am polyethylene glycol 3350 79833 mg powder for oral solution (20 sources) [...] Coronary atherosclerosis; 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: [Atherosclerotic heart disease of [place] coronary artery without angina pectoris] Onset: 04-03-2025 [...] sources) Long-term current use of anticoagulant; 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] 03-04-2025 Episodic Other aftercare (4 sources) Long-term current use of drug therapy; 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/antipl atelets] 03-15-2025 Episodic Other aftercare (1 source) 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; 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] Onset: 04-03-2025 Episodic [...] Auto (Unsp spec) [#/Vol] 0.87 10*3/uL 0.83-4.51 [facility] Absolute neutrophil countOrd ered By: Leslie Arriaga on 04-02-2025 Neutrophils (Bld) [#/Vol] 6.9 10*3/uL 2.0-7.7 [facility] Anion gap in Serum or Plasma Ordered By: Leslie Arriaga on 04-02-2025 Anion gap [Moles/Vol] 10 mmol/L 01-01 [facility] Automated lymphocyte count a s percentage of total leukocytesOrdered By: Leslie Arriaga on 04-02-2025 Lymphocytes/100 WBC Auto (Unsp spec) 10.0 % Low [facility] BUN/creatinine ratioOrdered By: Leslie Arriaga on 04-02-2025 Urea nitrogen/Creatinine [Mass ratio] 16.4 mg/mg 06-08 [facility] Basic Metabolic Profile (BMP )on 04-02-2025 BUN/CRE 16.4 RATIO Normal 06-08 [facility] Comment on above: Order Comment: Comme nts: Home Health to Draw TomorrowHom [facility] to Draw Tomorrow Performed By: #### L 100.0100, L503.7505, L500.2500 ####[facility] [address] [place], [address] Calcium [Mass/Vol] 9.2 mg/dL Normal 7.6-11.0 [facility] Comment on above: Order Comment: Comme nts: Home Health to Draw TomorrowHome Health to Draw Tomorrow Performed By: #### L 100.0100, L503.7505, L500.2500 ####[facility] [address] [place], [address] Chloride [Moles/Vol] 99 mmol/L Normal 98-108 [facility] Comment on above: Order Comment: Comme nts: Home Health to Draw TomorrowHome Health to Draw Tomorrow Performed By: #### L 100.0100, L503.7505, L500.2500 ####[facility] [address] [place], [address] CO2 [Moles/Vol] 27.8 mmol/L Normal 21.0-32.0 [facility] Comment on above: Order Comment: Comme nts: Home Health to Draw TomorrowHome [facility] to Draw Tomorrow Performed By: #### L 100.0100, L503.7505, L500.2500 ####[facility] [address] [place], [address] Creatinine [Mass/Vol] 2.13 mg/dL High 0.70-1.20 [facility] Comment on above: Order Comment: Comme nts: Home Health to Draw TomorrowHome [facility] to Draw Tomorrow Performed By: #### L 100.0100, L503.7505, L500.2500 ####[facility] [address] [place], [address] GAP 10 Normal 5-15 [facility] Comment on above: Order Comment: Comme nts: Home Health to Draw TomorrowHome Health to Draw Tomorrow Performed By: #### L 100.0100, L503.7505, L500.2500 ####[facility] [address] [place], [address] GFR/1.73 sq M.predicted among non-blacks MDRD (S/P/Bld) [Vol rate/Area] 31 mL/min/{1.73_m2} Low >60 [facility] Comment on above: Order Comment: Comme nts: Home Health to Draw TomorrowHome Health to Draw Tomorrow Result Comment: mL/m in/1.73m2 CKD-EPI Creatinine Equation (2020) Performed By: #### L 100.0100, L503.7505, L500.2500 ####[facility] [address] [place], [address] Glucose [Mass/Vol] 185 mg/dL High 70-99 [facility] Comment on above: Order Comment: Comme nts: Home Health to Draw TomorrowHome Health to Draw Tomorrow Performed By: #### L 100.0100, L503.7505, L500.2500 ####[facility] [address] [place], [address] Potassium [Moles/Vol] 5.6 mmol/L High 3.3-5.1 [facility] Comment on above: Order Comment: Comme nts: Home Health to Draw TomorrowHome Health to Draw Tomorrow Performed By: #### L 100.0100, L503.7505, L500.2500 ####[facility] [address] [place], [address] Sodium [Moles/Vol] 137 mmol/L Normal 133-145 [facility] Comment on above: Order Comment: Comme nts: Home Health to Draw TomorrowHome Health to Draw Tomorrow Performed By: #### L 100.0100, L503.7505, L500.2500 ####[facility] [address] [place], [address] Urea nitrogen [Mass/Vol] 35 mg/dL High 4-19 [facility] Comment on above: Order Comment: Comme nts: Home Health to Draw TomorrowHome Health to Draw Tomorrow Performed By: #### L 100.0100, L503.7505, L500.2500 ####[facility] [address] [place], [address] Basophil percentageOrdered B y: Leslie Steelonnell on 04-02-2025 Basophils/100 WBC (Bld) 0.3 % 0-1 [facility] CBC W/Diff, Automatedon 03-20-2024 Absolute Lymph 0.87 X10 3/uL Normal 0.83-4.51 [facility] Comment on above: Order Comment: Comme nts: Home Health to Draw Tomorrow Performed By: #### L 100.0100, L503.7505, L500.2500 ####[facility] [address] [place], [address] Absolute Neut 6.9 X10 3/uL Normal 2.0-7.7 [facility] Comment on above: Order Comment: Comme nts: Home Health to Draw Tomorrow Performed By: #### L 100.0100, L503.7505, L500.2500 ####[facility] [address] [place], [address] Basophils/100 WBC (Bld) 0.3 % Normal 0-1 [facility] Comment on above: Order Comment: Comme nts: Home Health to Draw Tomorrow Performed By: #### L 100.0100, L503.7505, L500.2500 ####[facility] [address] [place], [address] Eosinophils/100 WBC (Bld) 0.8 % Normal 0-5 [facility] Comment on above: Order Comment: Comme nts: Home Health to Draw Tomorrow Performed By: #### L 100.0100, L503.7505, L500.2500 ####[facility] [address] [place], [address] Erythrocyte distribution width (RBC) [Ratio] 17.1 % High 11.6-14.6 [facility] Comment on above: Order Comment: Comme nts: Home Health to Draw Tomorrow Performed By: #### L 100.0100, L503.7505, L500.2500 ####[facility] [address] [place], [address] Hematocrit (Bld) [Volume fraction] 30.6 % Low 40-54 [facility] Comment on above: Order Comment: Comme nts: Home Health to Draw Tomorrow Performed By: #### L 100.0100, L503.7505, L500.2500 ####[facility] [address] [place], [address] Hemoglobin (Bld) [Mass/Vol] 9.2 g/dL Low 13.0-16.5 [facility] Comment on above: Order Comment: Comme nts: Home Health to Draw Tomorrow Performed By: #### L 100.0100, L503.7505, L500.2500 ####[facility] [address] [place], [address] IG% 0.600 Normal 0.0-0.9 [facility] Comment on above: Order Comment: Comme nts: Home Health to Draw Tomorrow Result Comment: IG% - Immature Granulocytes (promyelocytes, myelocytes andmetamyelocytes) > 1% indicates that a LEFT SHIFT is Present. Performed By: #### L 100.0100, L503.7505, L500.2500 ####[facility] [address] [place], [address] Lymphocytes/100 WBC (Bld) 10.0 % Low 19-41 [facility] Comment on above: Order Comment: Comme nts: Home Health to Draw Tomorrow Performed By: #### L 100.0100, L503.7505, L500.2500 ####[facility] [address] [place], [address] MCH (RBC) [Entitic mass] 26.8 pg Low 27.0-32.0 [facility] Comment on above: Order Comment: Comme nts: Home Health to Draw Tomorrow Performed By: #### L 100.0100, L503.7505, L500.2500 ####[facility] [address] [place], [address] MCHC (RBC) [Mass/Vol] 30.1 g/dL Low 32-36 [facility] Comment on above: Order Comment: Comme nts: Home Health to Draw Tomorrow Performed By: #### L 100.0100, L503.7505, L500.2500 ####[facility] [address] [place], [address] MCV (RBC) [Entitic vol] 89.2 fL Normal 80-94 [facility] Comment on above: Order Comment: Comme nts: Home Health to Draw Tomorrow Performed By: #### L 100.0100, L503.7505, L500.2500 ####[facility] [address] [place], [address] Monocytes/100 WBC (Bld) 8.9 % Normal 0-10 [facility] Comment on above: Order Comment: Comme nts: Home Health to Draw Tomorrow Performed By: #### L 100.0100, L503.7505, L500.2500 ####[facility] [address] [place], [address] Neutrophils/100 WBC (Bld) 79.4 % High 47-70 [facility] Comment on above: Order Comment: Comme nts: Home Health to Draw Tomorrow Performed By: #### L 100.0100, L503.7505, L500.2500 ####[facility] [address] [place], [address] Nucleated RBC (Bld) [#/Vol] 0 10*3/uL Normal 0-5 [facility] Comment on above: Order Comment: Comme nts: Home Health to Draw Tomorrow Performed By: #### L 100.0100, L503.7505, L500.2500 ####[facility] [address] [place], [address] Platelet mean volume (Bld) [Entitic vol] 10.6 fL Normal 6.2-12.0 [facility] Comment on above: Order Comment: Comme nts: Home Health to Draw Tomorrow Performed By: #### L 100.0100, L503.7505, L500.2500 ####[facility] [address] [place], [address] Platelets (Bld) [#/Vol] 210 10*3/uL Normal 150-450 [facility] Comment on above: Order Comment: Comme nts: Home Health to Draw Tomorrow Performed By: #### L 100.0100, L503.7505, L500.2500 ####[facility] [address] [place], [address] RBC (Bld) [#/Vol] 3.43 10*6/uL Low 4.6-6.2 [facility] Comment on above: Order Comment: Comme nts: Home Health to Draw Tomorrow Performed By: #### L 100.0100, L503.7505, L500.2500 ####[facility] [address] [place], [address] RDW SD 55.3 fl High 35.1-43.9 [facility] Comment on above: Order Comment: Comme nts: Home Health to Draw Tomorrow Performed By: #### L 100.0100, L503.7505, L500.2500 ####[facility] [address] [place], [address] WBC (Bld) [#/Vol] 8.7 10*3/uL Normal 4.4-11.0 [facility] Comment on above: Order Comment: Comme nts: Home Health to Draw Tomorrow Performed By: #### L 100.0100, L503.7505, L500.2500 ####[facility] [address] [place], [address] Carbon dioxide, total [Moles /volume] in Central venous bloodOrdered By: Leslie Arriaga on 04-02-2025 CO2 [Moles/Vol] 27.8 mmol/L 21.0-32.0 [facility] Chloride assayOrdered By: Linsey Arriaga on 04-02-2025 Chloride [Moles/Vol] 99 mmol/L 98-108 [facility] Eosinophil percentageOrdered By: Leslie Arriaga on 04-02-2025 Eosinophils/100 WBC (Bld) 0.8 % 0-5 [facility] Erythrocyte distribution wid th ratioOrdered By: Leslie Arriaga on 04-02-2025 Erythrocyte distribution width (RBC) [Ratio] 17.1 % High 11.6-14.6 [facility] Erythrocyte distribution wid th standard deviationOrdered By: Leslie Arriaga on 04-02-2025 Erythrocyte distribution width (RBC) [Ratio] 55.3 fl High 35.1-43.9 [facility] Glomerular filtration rate ( GFR) estimation/1.73 sq m using serum, plasma, or whole bOrdered By: Leslie Arriaga on 04-02-2025 GFR/1.73 sq M.predicted among non-blacks MDRD (S/P/Bld) [Vol rate/Area] 31 mL/min/{1.73_m2} Low >60 [facility] Comment on above: mL/min/1.73m2 CKD-EP I Creatinine Equation (2020) Hematocrit Auto (Bld) [Volum e fraction]Ordered By: Leslie Arriaga on 04-02-2025 Hematocrit (Bld) [Volume fraction] 30.6 % Low 40-54 [facility] Hemoglobin measurementOrdere d By: Leslie Arriaga on 04-02-2025 Hemoglobin (Bld) [Mass/Vol] 9.2 g/dL Low 13.0-16.5 [facility] Immature granulocytes/100 WB C Auto (Bld)Ordered By: Leslie Arriaga on 04-02-2025 Immature granulocytes/100 WBC (Bld) 0.600 % 0.0-0.9 [facility] Comment on above: IG% - Immature Granu locytes (promyelocytes, myelocytes and metamyelocytes) > 1% indicates that a LEFT SHIFT is Present. MCV (mean corpuscular volume ) determinationOrdered By: Leslie Arriaga on 04-02-2025 MCV (RBC) [Entitic vol] 89.2 fL 80-94 [facility] Mean corpuscular hemoglobin (MCH) determinationOrdered By: Leslie Arriaga on 04-02-2025 MCH (RBC) [Entitic mass] 26.8 pg Low 27.0-32.0 [facility] Mean corpuscular hemoglobin concentration (MCHC) determinationOrdered By: Leslie Arriaga on 04-02-2025 MCHC (RBC) [Mass/Vol] 30.1 g/dL Low 32-36 [facility] Mean platelet volume determi nationOrdered By: Leslie Arriaga on 04-02-2025 Platelet mean volume (Bld) [Entitic vol] 10.6 fL 6.2-12.0 [facility] Monocyte percentageOrdered B y: Leslie Arriaga on 04-02-2025 Monocytes/100 WBC (Bld) 8.9 % 0-10 [facility] Natriuretic peptide.B prohor girish N-Terminal [Mass/volume] in Serum or PlasmaOrdered By: Leslie Arriaga on 04-02-2025 Natriuretic peptide.B prohormone N-Terminal [Mass/Vol] 2526 pg/mL High <1800 [facility] Comment on above: Heart Failure Unlike ly: < 300 pg/mLHeart Failure Likely< 50 Years: > 450 pg/mL50-75 Years: > 900 pg/mL>75 Years: > 1800 pg/mL Neutrophil percentageOrdered By: Leslie Arriaga on 04-02-2025 Neutrophils/100 WBC (Bld) 79.4 % High 47-70 [facility] Nucleated red blood cell per centageOrdered By: Leslie Arriaga on 04-02-2025 Nucleated RBC/100 WBC (Bld) [Ratio] 0 % 0-5 [facility] Platelet countOrdered By: Linsey Arriaga on 04-02-2025 Platelets (Bld) [#/Vol] 210 10*3/uL 150-450 [facility] Potassium measurement (mass/ volume)Ordered By: Leslie Arriaga on 04-02-2025 Potassium (Unsp spec) [Mass/Vol] 5.6 mmol/L High 3.3-5.1 [facility] Pro- Brain NATRIURETIC PEPTI Adrienne 04-02-2025 Natriuretic peptide B (Bld) [Mass/Vol] 2526 pg/mL High <=1800 [facility] Comment on above: Order Comment: Comme nts: Home Health to Draw Tomorrow Result Comment: Hear t Failure Unlikely: < 300 pg/mLHeart Failure Likely< 50 Years: > 450 pg/mL50-75 Years: > 900 pg/mL>75 Years: > 1800 pg/mL Performed By: #### L 100.0100, L503.7505, L500.2500 ####[facility] [address] [place], [address] RBC Auto (Bld) [#/Vol]Ordere d By: Leslie Arriaga on 04-02-2025 RBC (Bld) [#/Vol] 3.43 10*6/uL Low 4.6-6.2 [facility] Serum creatinine measurement (mass/volume)Ordered By: Leslie Arriaga on 04-02-2025 Creatinine [Mass/Vol] 2.13 mg/dL High 0.70-1.20 [facility] Serum glucose measurement (m ass/volume)Ordered By: Leslie Arriaga on 04-02-2025 Glucose [Mass/Vol] 185 mg/dL High 70-99 [facility] Serum or plasma calcium kingsley urement (mass/volume)Ordered By: Leslie Arriaga on 04-02-2025 Calcium [Mass/Vol] 9.2 mg/dL 7.6-11.0 [facility] Serum or plasma urea nitroge n measurement (mass/volume)Ordered By: Leslie Arriaga on 04-02-2025 Urea nitrogen [Mass/Vol] 35 mg/dL High 4-19 [facility] Sodium levelOrdered By: Brian julien Corina on 04-02-2025 Sodium [Moles/Vol] 137 mmol/L 133-145 [facility] White blood cell (WBC) count Ordered By: Leslie Arriaga on 04-02-2025 WBC (Bld) [#/Vol] 8.7 10*3/uL 4.4-11.0 [facility] Absolute lymphocyte countOrd ered By: Tonio Fajardo on 03-18-2025 Lymphocytes Auto (Unsp spec) [#/Vol] 0.88 10*3/uL 0.83-4.51 [facility] Absolute neutrophil countOrd ered By: Tonio Fajardo on 03-18-2025 Neutrophils (Bld) [#/Vol] 5.9 10*3/uL 2.0-7.7 [facility] Anion gap in Serum or Plasma Ordered By: Tonio Fajardo on 03-18-2025 Anion gap [Moles/Vol] 11 mmol/L - [facility] Automated lymphocyte count a s percentage of total leukocytesOrdered By: Tonio Fajardo on 03-18-2025 Lymphocytes/100 WBC Auto (Unsp spec) 11.2 % Low - [facility] BUN/creatinine ratioOrdered By: Tonio Fajardo on 03-18-2025 Urea nitrogen/Creatinine [Mass ratio] 14.8 mg/mg 06-08 [facility] Basic Metabolic Profile (BMP )on 03-18-2025 BUN/CRE 14.8 RATIO Normal 06-08 [facility] Comment on above: Performed By: #### L 500.2500, L100.0100 ####[facility] [address] [place], [address] Calcium [Mass/Vol] 9.5 mg/dL Normal 7.6-11.0 [facility] Comment on above: Performed By: #### L 500.2500, L100.0100 ####[facility] [address] [place], [address] Chloride [Moles/Vol] 99 mmol/L Normal 98-108 [facility] Comment on above: Performed By: #### L 500.2500, L100.0100 ####[facility] [address] [place], [address] CO2 [Moles/Vol] 26.7 mmol/L Normal 21.0-32.0 [facility] Comment on above: Performed By: #### L 500.2500, L100.0100 ####[facility] [address] [place], [address] Creatinine [Mass/Vol] 1.59 mg/dL High 0.70-1.20 [facility] Comment on above: Performed By: #### L 500.2500, L100.0100 ####[facility] [address] [place], [address] GAP 11 Normal 5-15 [facility] Comment on above: Performed By: #### L 500.2500, L100.0100 ####[facility] [address] [place], [address] GFR/1.73 sq M.predicted among non-blacks MDRD (S/P/Bld) [Vol rate/Area] 44 mL/min/{1.73_m2} Low >60 [facility] Comment on above: Result Comment: mL/m in/1.73m2 CKD-EPI Creatinine Equation (2020) Performed By: #### L 500.2500, L100.0100 ####[facility] [address] [place], [address] Glucose [Mass/Vol] 223 mg/dL High 70-99 [facility] Comment on above: Performed By: #### L 500.2500, L100.0100 ####[facility] [address] [place], [address] Potassium [Moles/Vol] 5.2 mmol/L High 3.3-5.1 [facility] Comment on above: Performed By: #### L 500.2500, L100.0100 ####[facility] [address] [place], [address] Sodium [Moles/Vol] 137 mmol/L Normal 133-145 [facility] Comment on above: Performed By: #### L 500.2500, L100.0100 ####[facility] [address] [place], [address] Urea nitrogen [Mass/Vol] 24 mg/dL High 4-19 [facility] Comment on above: Performed By: #### L 500.2500, L100.0100 ####[facility] [address] [place], [address] Basophil percentageOrdered B y: Tonio Fajardo on 03-18-2025 Basophils/100 WBC (Bld) 0.5 % 0-1 [facility] CBC W/Diff, Automatedon 02-19 0-2024 Absolute Lymph 0.88 X10 3/uL Normal 0.83-4.51 [facility] Comment on above: Performed By: #### L 500.2500, L100.0100 ####[facility] [address] [place], [address] Absolute Neut 5.9 X10 3/uL Normal 2.0-7.7 [facility] Comment on above: Performed By: #### L 500.2500, L100.0100 ####[facility] [address] [place], [address] Basophils/100 WBC (Bld) 0.5 % Normal 0-1 [facility] Comment on above: Performed By: #### L 500.2500, L100.0100 ####[facility] [address] [place], [address] Eosinophils/100 WBC (Bld) 3.1 % Normal 0-5 [facility] Comment on above: Performed By: #### L 500.2500, L100.0100 ####[facility] [address] [place], [address] Erythrocyte distribution width (RBC) [Ratio] 16.4 % High 11.6-14.6 [facility] Comment on above: Performed By: #### L 500.2500, L100.0100 ####[facility] [address] [place], [address] Hematocrit (Bld) [Volume fraction] 32.6 % Low 40-54 [facility] Comment on above: Performed By: #### L 500.2500, L100.0100 ####[facility] [address] [place], [address] Hemoglobin (Bld) [Mass/Vol] 9.7 g/dL Low 13.0-16.5 [facility] Comment on above: Performed By: #### L 500.2500, L100.0100 ####[facility] [address] [place], [address] IG% 1.100 High 0.0-0.9 [facility] Comment on above: Result Comment: IG% - Immature Granulocytes (promyelocytes, myelocytes andmetamyelocytes) > 1% indicates that a LEFT SHIFT is Present. Performed By: #### L 500.2500, L100.0100 ####[facility] [address] [place], [address] Lymphocytes/100 WBC (Bld) 11.2 % Low 19-41 [facility] Comment on above: Performed By: #### L 500.2500, L100.0100 ####[facility] [address] [place], [address] MCH (RBC) [Entitic mass] 26.8 pg Low 27.0-32.0 [facility] Comment on above: Performed By: #### L 500.2500, L100.0100 ####[facility] [address] [place], [address] MCHC (RBC) [Mass/Vol] 29.8 g/dL Low 32-36 [facility] Comment on above: Performed By: #### L 500.2500, L100.0100 ####[facility] [address] [place], [address] MCV (RBC) [Entitic vol] 90.1 fL Normal 80-94 [facility] Comment on above: Performed By: #### L 500.2500, L100.0100 ####[facility] [address] [place], [address] Monocytes/100 WBC (Bld) 9.4 % Normal 0-10 [facility] Comment on above: Performed By: #### L 500.2500, L100.0100 ####[facility] [address] [place], [address] Neutrophils/100 WBC (Bld) 74.7 % High 47-70 [facility] Comment on above: Performed By: #### L 500.2500, L100.0100 ####[facility] [address] [place], [address] Nucleated RBC (Bld) [#/Vol] 0 10*3/uL Normal 0-5 [facility] Comment on above: Performed By: #### L 500.2500, L100.0100 ####[facility] [address] [place], [address] Platelet mean volume (Bld) [Entitic vol] 10.4 fL Normal 6.2-12.0 [facility] Comment on above: Performed By: #### L 500.2500, L100.0100 ####[facility] [address] [place], [address] Platelets (Bld) [#/Vol] 252 10*3/uL Normal 150-450 [facility] Comment on above: Performed By: #### L 500.2500, L100.0100 ####[facility] [address] [place], [address] RBC (Bld) [#/Vol] 3.62 10*6/uL Low 4.6-6.2 [facility] Comment on above: Performed By: #### L 500.2500, L100.0100 ####[facility] [address] [place], [address] RDW SD 53.8 fl High 35.1-43.9 [facility] Comment on above: Performed By: #### L 500.2500, L100.0100 ####[facility] [address] [place], [address] WBC (Bld) [#/Vol] 7.9 10*3/uL Normal 4.4-11.0 [facility] Comment on above: Performed By: #### L 500.2500, L100.0100 ####[facility] [address] [place], [address] Carbon dioxide, total [Moles /volume] in Central venous bloodOrdered By: Tonio Fajardo on 03-18-2025 CO2 [Moles/Vol] 26.7 mmol/L 21.0-32.0 [facility] Chloride assayOrdered By: Min Fajardo on 03-18-2025 Chloride [Moles/Vol] 99 mmol/L 98-108 [facility] Eosinophil percentageOrdered By: Tonio Fajardo on 03-18-2025 Eosinophils/100 WBC (Bld) 3.1 % 0-5 [facility] Erythrocyte distribution wid th ratioOrdered By: Tonio Fajardo on 03-18-2025 Erythrocyte distribution width (RBC) [Ratio] 16.4 % High 11.6-14.6 [facility] Erythrocyte distribution wid th standard deviationOrdered By: Tonio Fajardo on 03-18-2025 Erythrocyte distribution width (RBC) [Ratio] 53.8 fl High 35.1-43.9 [facility] Glomerular filtration rate ( GFR) estimation/1.73 sq m using serum, plasma, or whole bOrdered By: Tonio Fajardo on 03-18-2025 GFR/1.73 sq M.predicted among non-blacks MDRD (S/P/Bld) [Vol rate/Area] 44 mL/min/{1.73_m2} Low >60 [facility] Comment on above: mL/min/1.73m2 CKD-EP I Creatinine Equation (2020) Hematocrit Auto (Bld) [Volum e fraction]Ordered By: Tonio Fajardo on 03-18-2025 Hematocrit (Bld) [Volume fraction] 32.6 % Low 40-54 [facility] Hemoglobin measurementOrdere d By: Tonio Fajardo on 03-18-2025 Hemoglobin (Bld) [Mass/Vol] 9.7 g/dL Low 13.0-16.5 [facility] Immature granulocytes/100 WB C Auto (Bld)Ordered By: Tonio Fajardo on 03-18-2025 Immature granulocytes/100 WBC (Bld) 1.100 % High 0.0-0.9 [facility] Comment on above: IG% - Immature Granu locytes (promyelocytes, myelocytes and metamyelocytes) > 1% indicates that a LEFT SHIFT is Present. MCV (mean corpuscular volume ) determinationOrdered By: Tonio Fajardo on 03-18-2025 MCV (RBC) [Entitic vol] 90.1 fL 80-94 [facility] Mean corpuscular hemoglobin (MCH) determinationOrdered By: Tonio Fajardo on 03-18-2025 MCH (RBC) [Entitic mass] 26.8 pg Low 27.0-32.0 [facility] Mean corpuscular hemoglobin concentration (MCHC) determinationOrdered By: Tonio Fajardo on 03-18-2025 MCHC (RBC) [Mass/Vol] 29.8 g/dL Low 32-36 [facility] Mean platelet volume determi nationOrdered By: Tonio Fajardo on 03-18-2025 Platelet mean volume (Bld) [Entitic vol] 10.4 fL 6.2-12.0 [facility] Monocyte percentageOrdered B y: Tonio Fajardo on 07-30-2025 Monocytes/100 WBC (Bld) 9.4 % 0-10 [facility] Neutrophil percentageOrdered By: Tonio Fajardo on 03-18-2025 Neutrophils/100 WBC (Bld) 74.7 % High 47-70 [facility] Nucleated red blood cell per centageOrdered By: Tonio Fajardo on 03-18-2025 Nucleated RBC/100 WBC (Bld) [Ratio] 0 % 0-5 [facility] Platelet countOrdered By: Min Fajardo on 03-18-2025 Platelets (Bld) [#/Vol] 252 10*3/uL 150-450 [facility] Potassium measurement (mass/ volume)Ordered By: Tonio Fajardo on 03-18-2025 Potassium (Unsp spec) [Mass/Vol] 5.2 mmol/L High 3.3-5.1 [facility] RBC Auto (Bld) [#/Vol]Ordere d By: Tonio Fajardo on 03-18-2025 RBC (Bld) [#/Vol] 3.62 10*6/uL Low 4.6-6.2 [facility] Serum creatinine measurement (mass/volume)Ordered By: Tonio Fajardo on 03-18-2025 Creatinine [Mass/Vol] 1.59 mg/dL High 0.70-1.20 [facility] Serum glucose measurement (m ass/volume)Ordered By: Tonio aFjardo on 03-18-2025 Glucose [Mass/Vol] 223 mg/dL High 70-99 [facility] Serum or plasma calcium kingsley urement (mass/volume)Ordered By: Tonio Fajardo on 03-18-2025 Calcium [Mass/Vol] 9.5 mg/dL 7.6-11.0 [facility] Serum or plasma urea nitroge n measurement (mass/volume)Ordered By: Tonio Fajardo on 03-18-2025 Urea nitrogen [Mass/Vol] 24 mg/dL High 4-19 [facility] Sodium levelOrdered By: Tonio Fajardo on 03-18-2025 Sodium [Moles/Vol] 137 mmol/L 133-145 [facility] White blood cell (WBC) count Ordered By: Tonio Fajardo on 03-18-2025 WBC (Bld) [#/Vol] 7.9 10*3/uL 4.4-11.0 [facility] Cardiology Visit Reporton Cardiology Visit Report Normal [facility] Emergency Department Summary on 03-15-2025 Emergency Department Summary Normal [facility] Basic Metabolic Profile (BMP )on 03-11-2025 BUN Normal 4-19 [facility] Comment on above: Result Comment: Canc elled via OM: Order cancelled - Patient discharged Performed By: #### L 500.2500, L100.0100 ####[facility] [address] [place], [address] BUN/CRE Normal 10-20 [facility] Comment on above: Result Comment: Canc elled via OM: Order cancelled - Patient discharged Performed By: #### L 500.2500, L100.0100 ####[facility] [address] [place], [address] Calcium Normal 7.6-11.0 [facility] Comment on above: Result Comment: Canc elled via OM: Order cancelled - Patient discharged Performed By: #### L 500.2500, L100.0100 ####[facility] [address] [place], [address] CL Normal 98-108 [facility] Comment on above: Result Comment: Canc elled via OM: Order cancelled - Patient discharged Performed By: #### L 500.2500, L100.0100 ####[facility] [address] [place], [address] CO2 Normal 21.0-32.0 [facility] Comment on above: Result Comment: Canc elled via OM: Order cancelled - Patient discharged Performed By: #### L 500.2500, L100.0100 ####[facility] [address] [place], [address] CREAT,SERUM Normal 0.70-1.20 [facility] Comment on above: Result Comment: Canc elled via OM: Order cancelled - Patient discharged Performed By: #### L 500.2500, L100.0100 ####[facility] [address] [place], [address] eGFR Normal >60 [facility] Comment on above: Result Comment: Canc elled via OM: Order cancelled - Patient discharged Performed By: #### L 500.2500, L100.0100 ####[facility] [address] [place], [address] GAP Normal 5-15 [facility] Comment on above: Result Comment: Canc elled via OM: Order cancelled - Patient discharged Performed By: #### L 500.2500, L100.0100 ####[facility] [address] [place], [address] GLU Normal 70-99 [facility] Comment on above: Result Comment: Canc elled via OM: Order cancelled - Patient discharged Performed By: #### L 500.2500, L100.0100 ####[facility] [address] [place], [address] Potassium Normal 3.3-5.1 [facility] Comment on above: Result Comment: Canc elled via OM: Order cancelled - Patient discharged Performed By: #### L 500.2500, L100.0100 ####[facility] [address] [place], [address] Basic Metabolic Profile (BMP) Normal 133-145 [facility] Comment on above: Result Comment: Canc elled via OM: Order cancelled - Patient discharged Performed By: #### L 500.2500, L100.0100 ####[facility] [address] [place], [address] CBC W/Diff, Automatedon 07-2 Absolute Neut Normal 2.0-7.7 [facility] Comment on above: Result Comment: Canc elled via OM: Order cancelled - Patient discharged Performed By: #### L 500.2500, L100.0100 ####[facility] [address] [place], [address] HCT Normal 40-54 [facility] Comment on above: Result Comment: Canc elled via OM: Order cancelled - Patient discharged Performed By: #### L 500.2500, L100.0100 ####[facility] [address] [place], [address] HGB Normal 13.0-16.5 [facility] Comment on above: Result Comment: Canc elled via OM: Order cancelled - Patient discharged Performed By: #### L 500.2500, L100.0100 ####[facility] [address] [place], [address] MCH Normal 27.0-32.0 [facility] Comment on above: Result Comment: Canc elled via OM: Order cancelled - Patient discharged Performed By: #### L 500.2500, L100.0100 ####[facility] [address] [place], [address] MCHC Normal 32-36 [facility] Comment on above: Result Comment: Canc elled via OM: Order cancelled - Patient discharged Performed By: #### L 500.2500, L100.0100 ####[facility] [address] [place], [address] MCV Normal 80-94 [facility] Comment on above: Result Comment: Canc elled via OM: Order cancelled - Patient discharged Performed By: #### L 500.2500, L100.0100 ####[facility] [address] [place], [address] NEUT% Normal 47-70 [facility] Comment on above: Result Comment: Canc elled via OM: Order cancelled - Patient discharged Performed By: #### L 500.2500, L100.0100 ####[facility] [address] [place], [address] PLT Normal 150-450 [facility] Comment on above: Result Comment: Canc elled via OM: Order cancelled - Patient discharged Performed By: #### L 500.2500, L100.0100 ####[facility] [address] [place], [address] RBC Normal 4.6-6.2 [facility] Comment on above: Result Comment: Canc elled via OM: Order cancelled - Patient discharged Performed By: #### L 500.2500, L100.0100 ####[facility] [address] [place], [address] RDW CV Normal 11.6-14.6 [facility] Comment on above: Result Comment: Canc elled via OM: Order cancelled - Patient discharged Performed By: #### L 500.2500, L100.0100 ####[facility] [address] [place], [address] RDW SD Normal 35.1-43.9 [facility] Comment on above: Result Comment: Canc elled via OM: Order cancelled - Patient discharged Performed By: #### L 500.2500, L100.0100 ####[facility] [address] [place], [address] WBC Normal 4.4-11.0 [facility] Comment on above: Result Comment: Canc elled via OM: Order cancelled - Patient discharged Performed By: #### L 500.2500, L100.0100 ####[facility] [address] [place], [address] Basic Metabolic Profile (BMP )on 03-10-2025 BUN Normal 4-19 [facility] Comment on above: Result Comment: Canc elled via OM: Order cancelled - Patient discharged Performed By: #### L 500.2500, L100.0100 ####[facility] [address] [place], [address] BUN/CRE Normal 10-20 [facility] Comment on above: Result Comment: Canc elled via OM: Order cancelled - Patient discharged Performed By: #### L 500.2500, L100.0100 ####[facility] [address] [place], [address] Calcium Normal 7.6-11.0 [facility] Comment on above: Result Comment: Canc elled via OM: Order cancelled - Patient discharged Performed By: #### L 500.2500, L100.0100 ####[facility] [address] [place], [address] CL Normal 98-108 [facility] Comment on above: Result Comment: Canc elled via OM: Order cancelled - Patient discharged Performed By: #### L 500.2500, L100.0100 ####[facility] [address] [place], [address] CO2 Normal 21.0-32.0 [facility] Comment on above: Result Comment: Canc elled via OM: Order cancelled - Patient discharged Performed By: #### L 500.2500, L100.0100 ####[facility] [address] [place], [address] CREAT,SERUM Normal 0.70-1.20 [facility] Comment on above: Result Comment: Canc elled via OM: Order cancelled - Patient discharged Performed By: #### L 500.2500, L100.0100 ####[facility] [address] [place], [address] eGFR Normal >60 [facility] Comment on above: Result Comment: Canc elled via OM: Order cancelled - Patient discharged Performed By: #### L 500.2500, L100.0100 ####[facility] [address] [place], [address] GAP Normal 5-15 [facility] Comment on above: Result Comment: Canc elled via OM: Order cancelled - Patient discharged Performed By: #### L 500.2500, L100.0100 ####[facility] [address] [place], [address] GLU Normal 70-99 [facility] Comment on above: Result Comment: Canc elled via OM: Order cancelled - Patient discharged Performed By: #### L 500.2500, L100.0100 ####[facility] [address] [place], [address] Potassium Normal 3.3-5.1 [facility] Comment on above: Result Comment: Canc elled via OM: Order cancelled - Patient discharged Performed By: #### L 500.2500, L100.0100 ####[facility] [address] [place], [address] Basic Metabolic Profile (BMP) Normal 133-145 [facility] Comment on above: Result Comment: Canc elled via OM: Order cancelled - Patient discharged Performed By: #### L 500.2500, L100.0100 ####[facility] [address] [place], [address] CBC W/Diff, Automatedon 07-2 Absolute Neut Normal 2.0-7.7 [facility] Comment on above: Result Comment: Canc elled via OM: Order cancelled - Patient discharged Performed By: #### L 500.2500, L100.0100 ####[facility] [address] [place], [address] HCT Normal 40-54 [facility] Comment on above: Result Comment: Canc elled via OM: Order cancelled - Patient discharged Performed By: #### L 500.2500, L100.0100 ####[facility] [address] [place], [address] HGB Normal 13.0-16.5 [facility] Comment on above: Result Comment: Canc elled via OM: Order cancelled - Patient discharged Performed By: #### L 500.2500, L100.0100 ####[facility] [address] [place], [address] MCH Normal 27.0-32.0 [facility] Comment on above: Result Comment: Canc elled via OM: Order cancelled - Patient discharged Performed By: #### L 500.2500, L100.0100 ####[facility] [address] [place], [address] MCHC Normal 32-36 [facility] Comment on above: Result Comment: Canc elled via OM: Order cancelled - Patient discharged Performed By: #### L 500.2500, L100.0100 ####[facility] [address] [place], [address] MCV Normal 80-94 [facility] Comment on above: Result Comment: Canc elled via OM: Order cancelled - Patient discharged Performed By: #### L 500.2500, L100.0100 ####[facility] [address] [place], [address] NEUT% Normal 47-70 [facility] Comment on above: Result Comment: Canc elled via OM: Order cancelled - Patient discharged Performed By: #### L 500.2500, L100.0100 ####[facility] [address] [place], [address] PLT Normal 150-450 [facility] Comment on above: Result Comment: Canc elled via OM: Order cancelled - Patient discharged Performed By: #### L 500.2500, L100.0100 ####[facility] [address] [place], [address] RBC Normal 4.6-6.2 [facility] Comment on above: Result Comment: Canc elled via OM: Order cancelled - Patient discharged Performed By: #### L 500.2500, L100.0100 ####[facility] [address] [place], [address] RDW CV Normal 11.6-14.6 [facility] Comment on above: Result Comment: Canc elled via OM: Order cancelled - Patient discharged Performed By: #### L 500.2500, L100.0100 ####[facility] [address] [place], [address] RDW SD Normal 35.1-43.9 [facility] Comment on above: Result Comment: Canc elled via OM: Order cancelled - Patient discharged Performed By: #### L 500.2500, L100.0100 ####[facility] [address] [place], [address] WBC Normal 4.4-11.0 [facility] Comment on above: Result Comment: Canc elled via OM: Order cancelled - Patient discharged Performed By: #### L 500.2500, L100.0100 ####[facility] [address] [place], [address] Absolute lymphocyte countOrd ered By: Deric Lantigua on 03-09-2025 Lymphocytes Auto (Unsp spec) [#/Vol] 0.53 10*3/uL Low 0.83-4.51 [facility] Absolute neutrophil countOrd ered By: Deric Lantigua on 03-09-2025 Neutrophils (Bld) [#/Vol] 4.0 10*3/uL 2.0-7.7 [facility] Anion gap in Serum or Plasma Ordered By: Deric Lantigua on 03-09-2025 Anion gap [Moles/Vol] 10 mmol/L 5-15 [facility] Automated lymphocyte count a s percentage of total leukocytesOrdered By: Deric Lantigua on 03-09-2025 Lymphocytes/100 WBC Auto (Unsp spec) 9.7 % Low 19-41 [facility] BUN/creatinine ratioOrdered By: Deric Lantigua on 03-09-2025 Urea nitrogen/Creatinine [Mass ratio] 20.8 mg/mg High 10-20 [facility] Basic Metabolic Profile (BMP )on 03-09-2025 BUN/CRE 20.8 RATIO High 10-20 [facility] Comment on above: Performed By: #### L 100.0100, L500.2500 ####[facility] [address] [place], [address] Calcium [Mass/Vol] 9.0 mg/dL Normal 7.6-11.0 [facility] Comment on above: Performed By: #### L 100.0100, L500.2500 ####[facility] [address] [place], [address] Chloride [Moles/Vol] 101 mmol/L Normal 98-108 [facility] Comment on above: Performed By: #### L 100.0100, L500.2500 ####[facility] [address] [place], [address] CO2 [Moles/Vol] 26.6 mmol/L Normal 21.0-32.0 [facility] Comment on above: Performed By: #### L 100.0100, L500.2500 ####[facility] [address] [place], [address] Creatinine [Mass/Vol] 2.41 mg/dL High 0.70-1.20 [facility] Comment on above: Performed By: #### L 100.0100, L500.2500 ####[facility] [address] [place], [address] ECRCL 24.14 ml/min Low 50-250 [facility] Comment on above: Performed By: #### L 100.0100, L500.2500 ####[facility] [address] [place], [address] GAP 10 Normal 5-15 [facility] Comment on above: Performed By: #### L 100.0100, L500.2500 ####[facility] [address] [place], [address] GFR/1.73 sq M.predicted among non-blacks MDRD (S/P/Bld) [Vol rate/Area] 26 mL/min/{1.73_m2} Low >60 [facility] Comment on above: Result Comment: mL/m in/1.73m2 CKD-EPI Creatinine Equation (2020) Performed By: #### L 100.0100, L500.2500 ####[facility] [address] [place], [address] Glucose [Mass/Vol] 118 mg/dL High 70-99 [facility] Comment on above: Performed By: #### L 100.0100, L500.2500 ####[facility] [address] [place], [address] Potassium [Moles/Vol] 4.3 mmol/L Normal 3.3-5.1 [facility] Comment on above: Performed By: #### L 100.0100, L500.2500 ####[facility] [address] [place], [address] Sodium [Moles/Vol] 138 mmol/L Normal 133-145 [facility] Comment on above: Performed By: #### L 100.0100, L500.2500 ####[facility] [address] [place], [address] Urea nitrogen [Mass/Vol] 50 mg/dL High 4-19 [facility] Comment on above: Performed By: #### L 100.0100, L500.2500 ####[facility] [address] [place], [address] Basophil percentageOrdered B y: Deric Lantigua on 03-09-2025 Basophils/100 WBC (Bld) 0.2 % 0-1 [facility] Bedside Glucoseon 03-09-2025 FINGERSTICK GLU 184 mg/dL High 74-106 [facility] Comment on above: Result Comment: KODY GEMENT OF PATIENT CARE PER NURSING PROTOCOL Performed By: #### L 501.080 ####[facility] [address] [place], [address] FINGERSTICK GLU 112 mg/dL High 74-106 [facility] Comment on above: Result Comment: KODY GEMENT OF PATIENT CARE PER NURSING PROTOCOL Performed By: #### L 501.080 ####[facility] [address] [place], [address] CBC W/Diff, Automatedon 07-2 -2024 Absolute Lymph 0.53 X10 3/uL Low 0.83-4.51 [facility] Comment on above: Performed By: #### L 100.0100, L500.2500 ####[facility] [address] [place], [address] Absolute Neut 4.0 X10 3/uL Normal 2.0-7.7 [facility] Comment on above: Performed By: #### L 100.0100, L500.2500 ####[facility] [address] [place], [address] Basophils/100 WBC (Bld) 0.2 % Normal 0-1 [facility] Comment on above: Performed By: #### L 100.0100, L500.2500 ####[facility] [address] [place], [address] Eosinophils/100 WBC (Bld) 4.8 % Normal 0-5 [facility] Comment on above: Performed By: #### L 100.0100, L500.2500 ####[facility] [address] [place], [address] Erythrocyte distribution width (RBC) [Ratio] 16.3 % High 11.6-14.6 [facility] Comment on above: Performed By: #### L 100.0100, L500.2500 ####[facility] [address] [place], [address] Hematocrit (Bld) [Volume fraction] 29.6 % Low 40-54 [facility] Comment on above: Performed By: #### L 100.0100, L500.2500 ####[facility] [address] [place], [address] Hemoglobin (Bld) [Mass/Vol] 9.3 g/dL Low 13.0-16.5 [facility] Comment on above: Performed By: #### L 100.0100, L500.2500 ####[facility] [address] [place], [address] IG% 0.600 Normal 0.0-0.9 [facility] Comment on above: Result Comment: IG% - Immature Granulocytes (promyelocytes, myelocytes andmetamyelocytes) > 1% indicates that a LEFT SHIFT is Present. Performed By: #### L 100.0100, L500.2500 ####[facility] [address] [place], [address] Lymphocytes/100 WBC (Bld) 9.7 % Low 19-41 [facility] Comment on above: Performed By: #### L 100.0100, L500.2500 ####[facility] [address] [place], [address] MCH (RBC) [Entitic mass] 27.5 pg Normal 27.0-32.0 [facility] Comment on above: Performed By: #### L 100.0100, L500.2500 ####[facility] [address] [place], [address] MCHC (RBC) [Mass/Vol] 31.4 g/dL Low 32-36 [facility] Comment on above: Performed By: #### L 100.0100, L500.2500 ####[facility] [address] [place], [address] MCV (RBC) [Entitic vol] 87.6 fL Normal 80-94 [facility] Comment on above: Performed By: #### L 100.0100, L500.2500 ####[facility] [address] [place], [address] Monocytes/100 WBC (Bld) 12.1 % High 0-10 [facility] Comment on above: Performed By: #### L 100.0100, L500.2500 ####[facility] [address] [place], [address] Neutrophils/100 WBC (Bld) 72.6 % High 47-70 [facility] Comment on above: Performed By: #### L 100.0100, L500.2500 ####[facility] [address] [place], [address] Nucleated RBC (Bld) [#/Vol] 0 10*3/uL Normal 0-5 [facility] Comment on above: Performed By: #### L 100.0100, L500.2500 ####[facility] [address] [place], [address] Platelet mean volume (Bld) [Entitic vol] 10.0 fL Normal 6.2-12.0 [facility] Comment on above: Performed By: #### L 100.0100, L500.2500 ####[facility] [address] [place], [address] Platelets (Bld) [#/Vol] 162 10*3/uL Normal 150-450 [facility] Comment on above: Performed By: #### L 100.0100, L500.2500 ####[facility] [address] [place], [address] RBC (Bld) [#/Vol] 3.38 10*6/uL Low 4.6-6.2 [facility] Comment on above: Performed By: #### L 100.0100, L500.2500 ####[facility] [address] [place], [address] RDW SD 51.8 fl High 35.1-43.9 [facility] Comment on above: Performed By: #### L 100.0100, L500.2500 ####[facility] [address] [place], [address] WBC (Bld) [#/Vol] 5.5 10*3/uL Normal 4.4-11.0 [facility] Comment on above: Performed By: #### L 100.0100, L500.2500 ####[facility] [address] [place], [address] Carbon dioxide, total [Moles /volume] in Central venous bloodOrdered By: Deric Lantigua on 03-09-2025 CO2 [Moles/Vol] 26.6 mmol/L 21.0-32.0 [facility] Chloride assayOrdered By: Silvia Lantigua on 03-09-2025 Chloride [Moles/Vol] 101 mmol/L 98-108 [facility] Discharge Instructionon 07 Discharge Instruction Normal [facility] Eosinophil percentageOrdered By: Deric Lantigua on 03-09-2025 Eosinophils/100 WBC (Bld) 4.8 % 0-5 [facility] Erythrocyte distribution wid th ratioOrdered By: Deric Lantigua on 03-09-2025 Erythrocyte distribution width (RBC) [Ratio] 16.3 % High 11.6-14.6 [facility] Erythrocyte distribution wid th standard deviationOrdered By: Deric Lantigua on 03-09-2025 Erythrocyte distribution width (RBC) [Ratio] 51.8 fl High 35.1-43.9 [facility] Glomerular filtration rate ( GFR) estimation/1.73 sq m using serum, plasma, or whole bOrdered By: Deric Lantigua on 03-09-2025 GFR/1.73 sq M.predicted among non-blacks MDRD (S/P/Bld) [Vol rate/Area] 26 mL/min/{1.73_m2} Low >60 [facility] Comment on above: mL/min/1.73m2 CKD-EP I Creatinine Equation (2020) Glucose measurement at bedsi deOrdered By: Deric Lantigua on 03-09-2025 Glucose [Mass/Vol] 184 mg/dL High 74-106 [facility] Comment on above: MANAGEMENT OF PATIEN T CARE PER NURSING PROTOCOL Hematocrit Auto (Bld) [Volum e fraction]Ordered By: Deric Lantigua on 03-09-2025 Hematocrit (Bld) [Volume fraction] 29.6 % Low 40-54 [facility] Hemoglobin measurementOrdere d By: Deric Lantigua on 03-09-2025 Hemoglobin (Bld) [Mass/Vol] 9.3 g/dL Low 13.0-16.5 [facility] Immature granulocytes/100 WB C Auto (Bld)Ordered By: Deric Lantigua on 03-09-2025 Immature granulocytes/100 WBC (Bld) 0.600 % 0.0-0.9 [facility] Comment on above: IG% - Immature Granu locytes (promyelocytes, myelocytes and metamyelocytes) > 1% indicates that a LEFT SHIFT is Present. MCV (mean corpuscular volume ) determinationOrdered By: Deric Lantigua on 03-09-2025 MCV (RBC) [Entitic vol] 87.6 fL 80-94 [facility] Mean corpuscular hemoglobin (MCH) determinationOrdered By: Deric Lantigua on 03-09-2025 MCH (RBC) [Entitic mass] 27.5 pg 27.0-32.0 [facility] Mean corpuscular hemoglobin concentration (MCHC) determinationOrdered By: Deric Lantigua on 03-09-2025 MCHC (RBC) [Mass/Vol] 31.4 g/dL Low 32-36 [facility] Mean platelet volume determi nationOrdered By: Deric Lantigua on 03-09-2025 Platelet mean volume (Bld) [Entitic vol] 10.0 fL 6.2-12.0 [facility] Monocyte percentageOrdered B y: Deric Lantigua on 03-09-2025 Monocytes/100 WBC (Bld) 12.1 % High 0-10 [facility] Neutrophil percentageOrdered By: Deric Lantigua on 03-09-2025 Neutrophils/100 WBC (Bld) 72.6 % High 47-70 [facility] Nucleated red blood cell per centageOrdered By: Deric Lantigua on 03-09-2025 Nucleated RBC/100 WBC (Bld) [Ratio] 0 % 0-5 [facility] Platelet countOrdered By: Silvia Lantigua on 03-09-2025 Platelets (Bld) [#/Vol] 162 10*3/uL 150-450 [facility] Potassium measurement (mass/ volume)Ordered By: Deric Lantigua on 03-09-2025 Potassium (Unsp spec) [Mass/Vol] 4.3 mmol/L 3.3-5.1 [facility] RBC Auto (Bld) [#/Vol]Ordere d By: Deric Lantigua on 03-09-2025 RBC (Bld) [#/Vol] 3.38 10*6/uL Low 4.6-6.2 [facility] Serum creatinine measurement (mass/volume)Ordered By: Deric Lantigua on 03-09-2025 Creatinine [Mass/Vol] 2.41 mg/dL High 0.70-1.20 [facility] Serum glucose measurement (m ass/volume)Ordered By: Deric Lantigua on 03-09-2025 Glucose [Mass/Vol] 118 mg/dL High 70-99 [facility] Serum or plasma calcium kingsley urement (mass/volume)Ordered By: Deric Lantigua on 03-09-2025 Calcium [Mass/Vol] 9.0 mg/dL 7.6-11.0 [facility] Serum or plasma urea nitroge n measurement (mass/volume)Ordered By: Deric Lantigua on 03-09-2025 Urea nitrogen [Mass/Vol] 50 mg/dL High 4-19 [facility] Sodium levelOrdered By: Mikki Lantigua on 03-09-2025 Sodium [Moles/Vol] 138 mmol/L 133-145 [facility] White blood cell (WBC) count Ordered By: Deric Lantigua on 03-09-2025 WBC (Bld) [#/Vol] 5.5 10*3/uL 4.4-11.0 [facility] Basic Metabolic Profile (BMP )on 03-08-2025 BUN/CRE 19.9 RATIO Normal 10-20 [facility] Comment on above: Performed By: #### L 500.2500 ####[facility] [address] [place], [address] Calcium [Mass/Vol] 8.8 mg/dL Normal 7.6-11.0 [facility] Comment on above: Performed By: #### L 500.2500 ####[facility] [address] [place], [address] Chloride [Moles/Vol] 99 mmol/L Normal 98-108 [facility] Comment on above: Performed By: #### L 500.2500 ####[facility] [address] [place], [address] CO2 [Moles/Vol] 27.0 mmol/L Normal 21.0-32.0 [facility] Comment on above: Performed By: #### L 500.2500 ####[facility] [address] [place], [address] Creatinine [Mass/Vol] 3.11 mg/dL High 0.70-1.20 [facility] Comment on above: Performed By: #### L 500.2500 ####[facility] [address] [place], [address] ECRCL 17.10 ml/min Low 50-250 [facility] Comment on above: Performed By: #### L 500.2500 ####[facility] [address] [place], [address] GAP 10 Normal 5-15 [facility] Comment on above: Performed By: #### L 500.2500 ####[facility] [address] [place], [address] GFR/1.73 sq M.predicted among non-blacks MDRD (S/P/Bld) [Vol rate/Area] 19 mL/min/{1.73_m2} Low >60 [facility] Comment on above: Result Comment: mL/m in/1.73m2 CKD-EPI Creatinine Equation (2020) Performed By: #### L 500.2500 ####[facility] [address] [place], [address] Glucose [Mass/Vol] 127 mg/dL High 70-99 [facility] Comment on above: Performed By: #### L 500.2500 ####[facility] [address] [place], [address] Potassium [Moles/Vol] 5.3 mmol/L High 3.3-5.1 [facility] Comment on above: Performed By: #### L 500.2500 ####[facility] [address] [place], [address] Sodium [Moles/Vol] 135 mmol/L Normal 133-145 [facility] Comment on above: Performed By: #### L 500.2500 ####[facility] [address] [place], [address] Urea nitrogen [Mass/Vol] 62 mg/dL High 4-19 [facility] Comment on above: Performed By: #### L 500.2500 ####[facility] [address] [place], [address] Bedside Glucoseon 03-08-2025 FINGERSTICK GLU 132 mg/dL High 74-106 [facility] Comment on above: Result Comment: KODY GEMENT OF PATIENT CARE PER NURSING PROTOCOL Performed By: #### L 501.080 ####[facility] [address] [place], [address] FINGERSTICK GLU 142 mg/dL High 74-106 [facility] Comment on above: Result Comment: KODY GEMENT OF PATIENT CARE PER NURSING PROTOCOL Performed By: #### L 501.080 ####[facility] [address] [place], [address] FINGERSTICK GLU 128 mg/dL High 74-106 [facility] Comment on above: Result Comment: KODY GEMENT OF PATIENT CARE PER NURSING PROTOCOL Performed By: #### L 501.080 ####[facility] [address] [place], [address] FINGERSTICK GLU 122 mg/dL High 74-106 [facility] Comment on above: Result Comment: KODY GEMENT OF PATIENT CARE PER NURSING PROTOCOL Performed By: #### L 501.080 ####[facility] [address] [place], [address] Magnesiumon 03-08-2025 Magnesium [Mass/Vol] 2.3 mg/dL High 1.5-2.2 [facility] Comment on above: Performed By: #### L 501.5200 ####[facility] [address] [place], [address] Magnesium measurement (mass/ volume)Ordered By: Nicola Madison on 03-08-2025 Magnesium (Unsp spec) [Mass/Vol] 2.3 mg/dL High 1.5-2.2 [facility] Potassiumon 03-08-2025 Potassium [Moles/Vol] 5.5 mmol/L High 3.3-5.1 [facility] Comment on above: Performed By: #### L 501.5600 ####[facility] [address] [place], [address] Basic Metabolic Profile (BMP )on 03-07-2025 BUN/CRE 18.2 RATIO Normal 10-20 [facility] Comment on above: Performed By: #### L 500.2500 ####[facility] [address] [place], [address] Calcium [Mass/Vol] 8.7 mg/dL Normal 7.6-11.0 [facility] Comment on above: Performed By: #### L 500.2500 ####[facility] [address] [place], [address] Chloride [Moles/Vol] 97 mmol/L Low 98-108 [facility] Comment on above: Performed By: #### L 500.2500 ####[facility] [address] [place], [address] CO2 [Moles/Vol] 26.3 mmol/L Normal 21.0-32.0 [facility] Comment on above: Performed By: #### L 500.2500 ####[facility] [address] [place], [address] Creatinine [Mass/Vol] 3.09 mg/dL High 0.70-1.20 [facility] Comment on above: Performed By: #### L 500.2500 ####[facility] [address] [place], [address] ECRCL 17.21 ml/min Low 50-250 [facility] Comment on above: Performed By: #### L 500.2500 ####[facility] [address] [place], [address] GAP 10 Normal 5-15 [facility] Comment on above: Performed By: #### L 500.2500 ####[facility] [address] [place], [place] [address] GFR/1.73 sq M.predicted among non-blacks MDRD (S/P/Bld) [Vol rate/Area] 20 mL/min/{1.73_m2} Low >60 [facility] Comment on above: Result Comment: mL/m in/1.73m2 CKD-EPI Creatinine Equation (2020) Performed By: #### L 500.2500 ####[facility] [address] [place], [address] Glucose [Mass/Vol] 126 mg/dL High 70-99 [facility] Comment on above: Performed By: #### L 500.2500 ####[facility] [address] [place], [address] Potassium [Moles/Vol] 4.8 mmol/L Normal 3.3-5.1 [facility] Comment on above: Performed By: #### L 500.2500 ####[facility] [address] [place], [address] Sodium [Moles/Vol] 134 mmol/L Normal 133-145 [facility] Comment on above: Performed By: #### L 500.2500 ####[facility] [address] [place], [address] Urea nitrogen [Mass/Vol] 56 mg/dL High 4-19 [facility] Comment on above: Performed By: #### L 500.2500 ####[facility] [address] [place], [address] Bedside Glucoseon 03-07-2025 FINGERSTICK GLU 151 mg/dL High 74-106 [facility] Comment on above: Result Comment: KODY GEMENT OF PATIENT CARE PER NURSING PROTOCOL Performed By: #### L 501.080 ####[facility] [address] [place], [address] FINGERSTICK GLU 191 mg/dL High 74-106 [facility] Comment on above: Result Comment: KODY GEMENT OF PATIENT CARE PER NURSING PROTOCOL Performed By: #### L 501.080 ####[facility] [address] [place], [address] FINGERSTICK GLU 184 mg/dL High 74-106 [facility] Comment on above: Result Comment: KODY GEMENT OF PATIENT CARE PER NURSING PROTOCOL Performed By: #### L 501.080 ####[facility] [address] [place], [address] FINGERSTICK GLU 127 mg/dL High 74-106 [facility] Comment on above: Result Comment: KODY GEMENT OF PATIENT CARE PER NURSING PROTOCOL Performed By: #### L 501.080 ####[facility] [address] [place], [address] Urine Cultureon 03-07-2025 [facility] Comments: On UA sample of 03/04 Culture exhibits no growth. Normal [facility] Comment on above: Performed By: #### M 100.2200 ####[facility] [address] [place], [address] Basic Metabolic Profile (BMP )on 03-06-2025 BUN/CRE 17.8 RATIO Normal 10-20 [facility] Comment on above: Performed By: #### L 500.2500, L501.2300 ####[facility] [address] [place], [address] Calcium [Mass/Vol] 9.1 mg/dL Normal 7.6-11.0 [facility] Comment on above: Performed By: #### L 500.2500, L501.2300 ####[facility] [address] [place], [address] Chloride [Moles/Vol] 99 mmol/L Normal 98-108 [facility] Comment on above: Performed By: #### L 500.2500, L501.2300 ####[facility] [address] [place], [address] CO2 [Moles/Vol] 31.2 mmol/L Normal 21.0-32.0 [facility] Comment on above: Performed By: #### L 500.2500, L501.2300 ####[facility] [address] [place], [address] Creatinine [Mass/Vol] 2.23 mg/dL High 0.70-1.20 [facility] Comment on above: Performed By: #### L 500.2500, L501.2300 ####[facility] [address] [place], [address] ECRCL 23.84 ml/min Low 50-250 [facility] Comment on above: Performed By: #### L 500.2500, L501.2300 ####[facility] [address] [place], [address] GAP 8 Normal 5-15 [facility] Comment on above: Performed By: #### L 500.2500, L501.2300 ####[facility] [address] [place], [address] GFR/1.73 sq M.predicted among non-blacks MDRD (S/P/Bld) [Vol rate/Area] 29 mL/min/{1.73_m2} Low >60 [facility] Comment on above: Result Comment: mL/m in/1.73m2 CKD-EPI Creatinine Equation (2020) Performed By: #### L 500.2500, L501.2300 ####[facility] [address] [place], [address] Glucose [Mass/Vol] 118 mg/dL High 70-99 [facility] Comment on above: Performed By: #### L 500.2500, L501.2300 ####[facility] [address] [place], [address] Potassium [Moles/Vol] 4.7 mmol/L Normal 3.3-5.1 [facility] Comment on above: Performed By: #### L 500.2500, L501.2300 ####[facility] [address] [place], [address] Sodium [Moles/Vol] 138 mmol/L Normal 133-145 [facility] Comment on above: Performed By: #### L 500.2500, L501.2300 ####[facility] [address] [place], [address] Urea nitrogen [Mass/Vol] 40 mg/dL High 4-19 [facility] Comment on above: Performed By: #### L 500.2500, L501.2300 ####[facility] [address] [place], [address] Bedside Glucoseon 03-06-2025 FINGERSTICK GLU 146 mg/dL High 74-106 [facility] Comment on above: Result Comment: KODY GEMENT OF PATIENT CARE PER NURSING PROTOCOL Performed By: #### L 501.080 ####[facility] [address] [place], [address] FINGERSTICK GLU 117 mg/dL High -106 [facility] Comment on above: Result Comment: KODY GEMENT OF PATIENT CARE PER NURSING PROTOCOL Performed By: #### L 501.080 ####[facility] [address] [place], [address] FINGERSTICK GLU 229 mg/dL High -106 [facility] Comment on above: Result Comment: KODY GEMENT OF PATIENT CARE PER NURSING PROTOCOL Performed By: #### L 501.080 ####[facility] [address] [place], [address] FINGERSTICK GLU 109 mg/dL High [facility]106 [facility] Comment on above: Result Comment: KODY GEMENT OF PATIENT CARE PER NURSING PROTOCOL Performed By: #### L 501.080 ####[facility] [address] [place], [address] FINGERSTICK GLU 140 mg/dL High [facility]106 [facility] Comment on above: Result Comment: KODY GEMENT OF PATIENT CARE PER NURSING PROTOCOL Performed By: #### L 501.080 ####[facility] [address] [place], [address] Consultation - Cardiologyon 03-06-2025 Consultation - Cardiology Normal [facility] Phosphoruson 03-06-2025 Phosphate [Mass/Vol] 3.9 mg/dL Normal 2.7-4.5 [facility] Comment on above: Performed By: #### L 500.2500, L5.2300 ####[facility] [address] [place], [address] Urine cultureOrdered By: Kavita Lantigua on 03-06-2025 Bacteria identified Cx Nom (U) Culture exhibits no growth. [facility] Bedside Glucoseon 03-05-2025 FINGERSTICK GLU 111 mg/dL High 74-106 [facility] Comment on above: Result Comment: KODY GEMENT OF PATIENT CARE PER NURSING PROTOCOL Performed By: #### L 501.080 ####[facility] [address] [place], [address] FINGERSTICK GLU 152 mg/dL High 74-106 [facility] Comment on above: Result Comment: KODY GEMENT OF PATIENT CARE PER NURSING PROTOCOL Performed By: #### L 501.080 ####[facility] [address] [place], [address] FINGERSTICK GLU 159 mg/dL High 74-106 [facility] Comment on above: Result Comment: KODY GEMENT OF PATIENT CARE PER NURSING PROTOCOL Performed By: #### L 501.080 ####[facility] [address] [place], [address] Bilirubin, totalOrdered By: Nicola Madison on 03-05-2025 Bilirubin [Mass/Vol] 0.46 mg/dL 0.00-1.30 [facility] CBC W/Diff, Automatedon 02-17 Absolute Lymph 0.72 X10 3/uL Low 0.83-4.51 [facility] Comment on above: Performed By: #### L 501.2300, L100.0100 ####[facility] [address] [place], [address] Absolute Neut 5.8 X10 3/uL Normal 2.0-7.7 [facility] Comment on above: Performed By: #### L 501.2300, L100.0100 ####[facility] [address] [place], [address] Basophils/100 WBC (Bld) 0.4 % Normal 0-1 [facility] Comment on above: Performed By: #### L 501.2300, L100.0100 ####[facility] [address] [place], [address] Eosinophils/100 WBC (Bld) 2.0 % Normal 0-5 [facility] Comment on above: Performed By: #### L 501.2300, L100.0100 ####[facility] [address] [place], [address] Erythrocyte distribution width (RBC) [Ratio] 16.6 % High 11.6-14.6 [facility] Comment on above: Performed By: #### L 501.2300, L100.0100 ####[facility] [address] [place], [address] Hematocrit (Bld) [Volume fraction] 30.1 % Low 40-54 [facility] Comment on above: Performed By: #### L 501.2300, L100.0100 ####[facility] [address] [place], [address] Hemoglobin (Bld) [Mass/Vol] 9.3 g/dL Low 13.0-16.5 [facility] Comment on above: Performed By: #### L 501.2300, L100.0100 ####[facility] [address] [place], [address] IG% 0.300 Normal 0.0-0.9 [facility] Comment on above: Result Comment: IG% - Immature Granulocytes (promyelocytes, myelocytes andmetamyelocytes) > 1% indicates that a LEFT SHIFT is Present. Performed By: #### L 501.2300, L100.0100 ####[facility] [address] [place], [address] Lymphocytes/100 WBC (Bld) 9.5 % Low 19-41 [facility] Comment on above: Performed By: #### L 501.2300, L100.0100 ####[facility] [address] [place], [address] MCH (RBC) [Entitic mass] 27.0 pg Normal 27.0-32.0 [facility] Comment on above: Performed By: #### L 501.2300, L100.0100 ####[facility] [address] [place], [address] MCHC (RBC) [Mass/Vol] 30.9 g/dL Low 32-36 [facility] Comment on above: Performed By: #### L 501.2300, L100.0100 ####[facility] [address] [place], [address] MCV (RBC) [Entitic vol] 87.5 fL Normal 80-94 [facility] Comment on above: Performed By: #### L 501.2300, L100.0100 ####[facility] [address] [place], [address] Monocytes/100 WBC (Bld) 11.4 % High 0-10 [facility] Comment on above: Performed By: #### L 501.2300, L100.0100 ####[facility] [address] [place], [address] Neutrophils/100 WBC (Bld) 76.4 % High 47-70 [facility] Comment on above: Performed By: #### L 501.2300, L100.0100 ####[facility] [address] [place], [address] Nucleated RBC (Bld) [#/Vol] 0 10*3/uL Normal 0-5 [facility] Comment on above: Performed By: #### L 501.2300, L100.0100 ####[facility] [address] [place], [address] Platelet mean volume (Bld) [Entitic vol] 10.7 fL Normal 6.2-12.0 [facility] Comment on above: Performed By: #### L 501.2300, L100.0100 ####[facility] [address] [place], [address] Platelets (Bld) [#/Vol] 181 10*3/uL Normal 150-450 [facility] Comment on above: Performed By: #### L 501.2300, L100.0100 ####[facility] [address] [place], [address] RBC (Bld) [#/Vol] 3.44 10*6/uL Low 4.6-6.2 [facility] Comment on above: Performed By: #### L 501.2300, L100.0100 ####[facility] [address] [place], [address] RDW SD 52.8 fl High 35.1-43.9 [facility] Comment on above: Performed By: #### L 501.2300, L100.0100 ####[facility] [address] [place], [address] WBC (Bld) [#/Vol] 7.6 10*3/uL Normal 4.4-11.0 [facility] Comment on above: Performed By: #### L 501.2300, L100.0100 ####[facility] [address] [place], [address] Calculated very low density lipoprotein (VLDL) cholesterol measurementOrdered By: Nicola Madison on 03-05-2025 Calculated very low density lipoprotein (VLDL) cholesterol measurement 16 mg/dL 5-40 [facility] Chest 1 View (Portable)on Chest 1 View (Portable) Normal [facility] Comprehensive Metabolic Prof ilon 03-05-2025 Albumin [Mass/Vol] 3.4 g/dL Normal 3.4-4.8 [facility] Comment on above: Performed By: #### L 500.4050, L500.4100, L503.7505 ####[facility] [address] [place], [address] Albumin/Globulin [Mass ratio] 0.9 {ratio} Normal 0.9-2.4 [facility] Comment on above: Performed By: #### L 500.4050, L500.4100, L503.7505 ####[facility] [address] [place], [address] ALK PHOS 75 U/L Normal 40-129 [facility] Comment on above: Performed By: #### L 500.4050, L500.4100, L503.7505 ####[facility] [address] [place], [address] ALT [Catalytic activity/Vol] 10 U/L Normal <=46 [facility] Comment on above: Performed By: #### L 500.4050, L500.4100, L503.7505 ####[facility] [address] [place], [address] AST [Catalytic activity/Vol] 15 U/L Normal <=37 [facility] Comment on above: Performed By: #### L 500.4050, L500.4100, L503.7505 ####[facility] [address] [place], [address] Bilirubin [Mass/Vol] 0.46 mg/dL Normal 0.00-1.30 [facility] Comment on above: Performed By: #### L 500.4050, L500.4100, L503.7505 ####[facility] [address] [place], [address] BUN/CRE 18.6 RATIO Normal 10-20 [facility] Comment on above: Performed By: #### L 500.4050, L500.4100, L503.7505 ####[facility] [address] [place], [address] Calcium [Mass/Vol] 9.1 mg/dL Normal 7.6-11.0 [facility] Comment on above: Performed By: #### L 500.4050, L500.4100, L503.7505 ####[facility] [address] [place], [address] Chloride [Moles/Vol] 101 mmol/L Normal 98-108 [facility] Comment on above: Performed By: #### L 500.4050, L500.4100, L503.7505 ####[facility] [address] [place], [address] CO2 [Moles/Vol] 27.2 mmol/L Normal 21.0-32.0 [facility] Comment on above: Performed By: #### L 500.4050, L500.4100, L503.7505 ####[facility] [address] [place], [address] Creatinine [Mass/Vol] 1.95 mg/dL High 0.70-1.20 [facility] Comment on above: Performed By: #### L 500.4050, L500.4100, L503.7505 ####[facility] [address] [place], [address] ECRCL 27.26 ml/min Low 50-250 [facility] Comment on above: Performed By: #### L 500.4050, L500.4100, L503.7505 ####[facility] [address] [place], [address] GAP 10 Normal 5-15 [facility] Comment on above: Performed By: #### L 500.4050, L500.4100, L503.7505 ####[facility] [address] [place], [address] GFR/1.73 sq M.predicted among non-blacks MDRD (S/P/Bld) [Vol rate/Area] 34 mL/min/{1.73_m2} Low >60 [facility] Comment on above: Result Comment: mL/m in/1.73m2 CKD-EPI Creatinine Equation (2020) Performed By: #### L 500.4050, L500.4100, L503.7505 ####[facility] [address] [place], [address] Globulin (S) [Mass/Vol] 3.9 g/dL Normal 2.2-4.2 [facility] Comment on above: Performed By: #### L 500.4050, L500.4100, L503.7505 ####[facility] [address] [place], [address] Glucose [Mass/Vol] 171 mg/dL High 70-99 [facility] Comment on above: Performed By: #### L 500.4050, L500.4100, L503.7505 ####[facility] [address] [place], [address] Potassium [Moles/Vol] 5.0 mmol/L Normal 3.3-5.1 [facility] Comment on above: Performed By: #### L 500.4050, L500.4100, L503.7505 ####[facility] [address] [place], [address] Sodium [Moles/Vol] 138 mmol/L Normal 133-145 [facility] Comment on above: Performed By: #### L 500.4050, L500.4100, L503.7505 ####[facility] [address] [place], [address] T PROT 7.3 g/dL Normal 5.9-8.4 [facility] Comment on above: Performed By: #### L 500.4050, L500.4100, L503.7505 ####[facility] [address] [place], [address] Urea nitrogen [Mass/Vol] 36 mg/dL High 4-19 [facility] Comment on above: Performed By: #### L 500.4050, L500.4100, L503.7505 ####[facility] [address] [place], [address] Echocardiogram study reportO rdered By: Marjorie Green on 03-05-2025 Study report [facility] [address] 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 [facility] Work Phone: [phone] 03-05-2025 Natriuretic peptide B (Bld) [Mass/Vol] 4176 pg/mL High <=1800 [facility] Comment on above: Result Comment: Hear t Failure Unlikely: < 300 pg/mLHeart Failure Likely< 50 Years: > 450 pg/mL50-75 Years: > 900 pg/mL>75 Years: > 1800 pg/mL Performed By: #### L 500.4050, L500.4100, L503.7505 ####[facility] [address] [place], [place], [address] LDL calc ser/plasOrdered By: Nicola Madison on 03-05-2025 Cholesterol in LDL [Mass/Vol] 63 mg/dL [facility] Comment on above: Dapsafsvpa=084-471 m g/dL & Higher Ibws=240 mg/dL or greater Laboratory - Chemistry and C hemistry - challengeOrdered By: Nicola Madison on 03-05-2025 AST [Catalytic activity/Vol] 15 U/L <38 [facility] Lipid Profileon 03-05-2025 CHOL:HDL 3.04 Normal [facility] Comment on above: Performed By: #### L 500.4050, L500.4100, L503.7505 ####[facility] [address] [place], [address] Cholesterol [Mass/Vol] 117 mg/dL Normal <=200 [facility] Comment on above: Result Comment: Chol esterol level, Desirable <200 mg/dLBorderline high cholesterol 200-239 mg/dLHigh cholesterol >=240 mg/dLRecommendations of the NCEP Adult Treatment Panel for thefollowing risk-cutoff thresholds for the [place] Americanpulation. Performed By: #### L 500.4050, L500.4100, L503.7505 ####[facility] [address] [place], [address] Cholesterol in HDL [Mass/Vol] 39 mg/dL Low [facility] Comment on above: Result Comment: Gia onal Cholesterol Education Program (NCEP) guidelines:<40 mg/dL: Low HDL-cholesterol (major risk factor for CHD)>= 60 mg/dL: High HDL-cholesterol (negative risk factor forCHD)HDL-cholesterol is affected by a number of factors, e.g.smoking, exercise, hormones, sex and age. Performed By: #### L 500.4050, L500.4100, L503.7505 ####[facility] [address] [place], [address] Cholesterol in LDL [Mass/Vol] 63 mg/dL Normal [facility] Comment on above: Result Comment: Bord clsetw=294-726 mg/dL Higher Nydk=261 mg/dL or greater Performed By: #### L 500.4050, L500.4100, L503.7505 ####[facility] [address] [place], [address] Cholesterol in VLDL [Mass/Vol] 16 mg/dL Normal 5-40 [facility] Comment on above: Performed By: #### L 500.4050, L500.4100, L503.7505 ####[facility] [address] [place], [place], [address] Triglyceride [Mass/Vol] 79 mg/dL Normal [facility] Comment on above: Result Comment: The drugs N-Acetylcysteine and Metamizole may falselydepress this assay.Normal range: <150 mg/dLBorderline High: 150-199 mg/dLHigh: 200-499 mg/dLVery High: >500 mg/dL Performed By: #### L 500.4050, L500.4100, L503.7505 ####[facility] [address] [place], [address] Natriuretic peptide.B prohor girish N-Terminal [Mass/volume] in Serum or PlasmaOrdered By: Nicola Madison on 03-05-2025 Natriuretic peptide.B prohormone N-Terminal [Mass/Vol] 4176 pg/mL High <1800 [facility] Comment on above: Heart Failure Unlike ly: < 300 pg/mLHeart Failure Likely< 50 Years: > 450 pg/mL50-75 Years: > 900 pg/mL>75 Years: > 1800 pg/mL Phosphoruson 03-05-2025 Phosphate [Mass/Vol] 3.3 mg/dL Normal 2.7-4.5 [facility] Comment on above: Performed By: #### L 501.2300, L100.0100 ####[facility] [address], [address] Screening total cholesterol/ high density lipoprotein (HDL) cholesterol ratioOrdered By: Nicola Madison on 03-05-2025 Cholesterol.total/Cholest liset in HDL [Mass ratio] 3.04 {ratio} [facility] Serum globulin measurementOr dered By: Nicola Madison on 03-05-2025 Globulin (S) [Mass/Vol] 3.9 g/dL 2.2-4.2 [facility] Serum or plasma alanine ortiz otransferase (ALT) measurementOrdered By: Nicola Madison on 03-05-2025 ALT [Catalytic activity/Vol] 10 U/L <47 [facility] Serum or plasma albumin kingsley urement (mass/volume)Ordered By: Nicola Madison on 03-05-2025 Albumin [Mass/Vol] 3.4 g/dL 3.4-4.8 [facility] Serum or plasma albumin/glob ulin mass ratioOrdered By: Nicola Madison on 03-05-2025 Albumin/Globulin [Mass ratio] 0.9 {ratio} 0.9-2.4 [facility] Serum or plasma alkaline roosevelt sphatase measurementOrdered By: Nicola Madison on 03-05-2025 ALP [Catalytic activity/Vol] 75 U/L 40-129 [facility] Serum or plasma cholesterol in HDL measurement (mass/volume)Ordered By: Nicola Madison on 03-05-2025 Cholesterol in HDL [Mass/Vol] 39 mg/dL Low >40 [facility] Comment on above: National Cholesterol Education Program (NCEP) guidelines:<40 mg/dL: Low HDL-cholesterol (major risk factor for CHD)>= 60 mg/dL: High HDL-cholesterol (negative risk factor for CHD)HDL-cholesterol is affected by a number of factors, e.g. smoking, exercise, hormones, sex and age. Serum or plasma cholesterol measurement (mass/volume)Ordered By: Nicola Madison on 03-05-2025 Cholesterol [Mass/Vol] 117 mg/dL <201 [facility] Comment on above: Cholesterol level, D esirable <200 mg/dLBorderline high cholesterol 200-239 mg/dLHigh cholesterol >=240 mg/dLRecommendations of the NCEP Adult Treatment Panel for the following risk-cutoff thresholds for the [place] population. Total proteinOrdered By: Jacob Madison on 03-05-2025 Protein [Mass/Vol] 7.3 g/dL 5.9-8.4 [facility] Triglycerides measurementOrd ered By: Nicola Madison on 03-05-2025 Triglyceride [Mass/Vol] 79 mg/dL <199 [facility] Comment on above: The drugs N-Acetylcy steine and Metamizole may falsely depress this assay. Normal range: <150 mg/dLBorderline High: 150-199 mg/dLHigh: 200-499 mg/dLVery High: >500 mg/dL Absolute lymphocyte countOrd ered By: Chris Ochoa on 03-04-2025 Lymphocytes Auto (Unsp spec) [#/Vol] 0.77 10*3/uL Low 0.83-4.51 [facility] Absolute neutrophil countOrd ered By: Chris Ochoa on 03-04-2025 Neutrophils (Bld) [#/Vol] 6.0 10*3/uL 2.0-7.7 [facility] Anion gap in Serum or Plasma Ordered By: Chris Ochoa on 03-04-2025 Anion gap [Moles/Vol] 8 mmol/L 5- [facility] Automated lymphocyte count a s percentage of total leukocytesOrdered By: Chris Ochoa on 03-04-2025 Lymphocytes/100 WBC Auto (Unsp spec) 10.1 % Low 19-41 [facility] BUN/creatinine ratioOrdered By: Chris Ochoa on 03-04-2025 Urea nitrogen/Creatinine [Mass ratio] 19.7 mg/mg 10- [facility] Basic Metabolic Profile (BMP )on 03-04-2025 BUN/CRE 19.7 RATIO Normal - [facility] Comment on above: Performed By: #### L 100.0100, L501.4021, L500.2500, L503.7505 ####[facility] [address] [place], [address] Calcium [Mass/Vol] 9.3 mg/dL Normal 7.6-11.0 [facility] Comment on above: Performed By: #### L 100.0100, L501.4021, L500.2500, L503.7505 ####[facility] [address] [place], [address] Chloride [Moles/Vol] 102 mmol/L Normal 98-108 [facility] Comment on above: Performed By: #### L 100.0100, L501.4021, L500.2500, L503.7505 ####[facility] [address] [place], [address] CO2 [Moles/Vol] 28.6 mmol/L Normal 21.0-32.0 [facility] Comment on above: Performed By: #### L 100.0100, L501.4021, L500.2500, L503.7505 ####[facility] [address] [place], [address] Creatinine [Mass/Vol] 1.86 mg/dL High 0.70-1.20 [facility] Comment on above: Performed By: #### L 100.0100, L501.4021, L500.2500, L503.7505 ####[facility] [address] [place], [address] ECRCL 28.58 ml/min Low 50-250 [facility] Comment on above: Performed By: #### L 100.0100, L501.4021, L500.2500, L503.7505 ####[facility] [address] [place], [address] GAP 8 Normal 5-15 [facility] Comment on above: Performed By: #### L 100.0100, L501.4021, L500.2500, L503.7505 ####[facility] [address] [place], [address] GFR/1.73 sq M.predicted among non-blacks MDRD (S/P/Bld) [Vol rate/Area] 36 mL/min/{1.73_m2} Low >60 [facility] Comment on above: Result Comment: mL/m in/1.73m2 CKD-EPI Creatinine Equation (2020) Performed By: #### L 100.0100, L501.4021, L500.2500, L503.7505 ####[facility] [address] [place], [address] Glucose [Mass/Vol] 124 mg/dL High 70-99 [facility] Comment on above: Performed By: #### L 100.0100, L501.4021, L500.2500, L503.7505 ####[facility] [address] [place], [address] Potassium [Moles/Vol] 5.2 mmol/L High 3.3-5.1 [facility] Comment on above: Performed By: #### L 100.0100, L501.4021, L500.2500, L503.7505 ####[facility] [address] [place], [address] Sodium [Moles/Vol] 138 mmol/L Normal 133-145 [facility] Comment on above: Performed By: #### L 100.0100, L501.4021, L500.2500, L503.7505 ####[facility] [address] [place], [address] Urea nitrogen [Mass/Vol] 37 mg/dL High 4-19 [facility] Comment on above: Performed By: #### L 100.0100, L501.4021, L500.2500, L503.7505 ####[facility] [address] [place], [address] Basophil percentageOrdered B y: Chris Ochoa on 03-04-2025 Basophils/100 WBC (Bld) 0.4 % 0-1 [facility] Bedside Glucoseon 03-04-2025 FINGERSTICK GLU 80 mg/dL Normal 74-106 [facility] Comment on above: Result Comment: KODY STRONG OF PATIENT CARE PER NURSING PROTOCOL Performed By: #### L 501.080 ####[facility] [address] [place], [address] Bilirubin Test strip Ql (U)O rdered By: Nicola Madison on 03-04-2025 Bilirubin Ql (U) Negative Negative [facility] CBC W/Diff, Automatedon 02-17 Absolute Lymph 0.77 X10 3/uL Low 0.83-4.51 [facility] Comment on above: Performed By: #### L 100.0100, L501.4021, L500.2500, L503.7505 ####[facility] [address] [place], [address] Absolute Neut 6.0 X10 3/uL Normal 2.0-7.7 [facility] Comment on above: Performed By: #### L 100.0100, L501.4021, L500.2500, L503.7505 ####[facility] [address] [place], [address] Basophils/100 WBC (Bld) 0.4 % Normal 0-1 [facility] Comment on above: Performed By: #### L 100.0100, L501.4021, L500.2500, L503.7505 ####[facility] [address] [place], [address] Eosinophils/100 WBC (Bld) 1.6 % Normal 0-5 [facility] Comment on above: Performed By: #### L 100.0100, L501.4021, L500.2500, L503.7505 ####[facility] [address] [place], [address] Erythrocyte distribution width (RBC) [Ratio] 16.5 % High 11.6-14.6 [facility] Comment on above: Performed By: #### L 100.0100, L501.4021, L500.2500, L503.7505 ####[facility] [address] [place], [address] Hematocrit (Bld) [Volume fraction] 33.4 % Low 40-54 [facility] Comment on above: Performed By: #### L 100.0100, L501.4021, L500.2500, L503.7505 ####[facility] [address] [place], [address] Hemoglobin (Bld) [Mass/Vol] 10.1 g/dL Low 13.0-16.5 [facility] Comment on above: Performed By: #### L 100.0100, L501.4021, L500.2500, L503.7505 ####[facility] [address] [place], [address] IG% 0.700 Normal 0.0-0.9 [facility] Comment on above: Result Comment: IG% - Immature Granulocytes (promyelocytes, myelocytes andmetamyelocytes) > 1% indicates that a LEFT SHIFT is Present. Performed By: #### L 100.0100, L501.4021, L500.2500, L503.7505 ####[facility] [address] [place], [address] Lymphocytes/100 WBC (Bld) 10.1 % Low 19-41 [facility] Comment on above: Performed By: #### L 100.0100, L501.4021, L500.2500, L503.7505 ####[facility] [address] [place], [address] MCH (RBC) [Entitic mass] 27.0 pg Normal 27.0-32.0 [facility] Comment on above: Performed By: #### L 100.0100, L501.4021, L500.2500, L503.7505 ####[facility] [address] [place], [address] MCHC (RBC) [Mass/Vol] 30.2 g/dL Low 32-36 [facility] Comment on above: Performed By: #### L 100.0100, L501.4021, L500.2500, L503.7505 ####[facility] [address] [place], [address] MCV (RBC) [Entitic vol] 89.3 fL Normal 80-94 [facility] Comment on above: Performed By: #### L 100.0100, L501.4021, L500.2500, L503.7505 ####[facility] [address] [place], [address] Monocytes/100 WBC (Bld) 9.1 % Normal 0-10 [facility] Comment on above: Performed By: #### L 100.0100, L501.4021, L500.2500, L503.7505 ####[facility] [address] [place], [address] Neutrophils/100 WBC (Bld) 78.1 % High 47-70 [facility] Comment on above: Performed By: #### L 100.0100, L501.4021, L500.2500, L503.7505 ####[facility] [address] [place], [address] Nucleated RBC (Bld) [#/Vol] 0 10*3/uL Normal 0-5 [facility] Comment on above: Performed By: #### L 100.0100, L501.4021, L500.2500, L503.7505 ####[facility] [address] [place], [address] Platelet mean volume (Bld) [Entitic vol] 10.2 fL Normal 6.2-12.0 [facility] Comment on above: Performed By: #### L 100.0100, L501.4021, L500.2500, L503.7505 ####[facility] [address] [place], [address] Platelets (Bld) [#/Vol] 189 10*3/uL Normal 150-450 [facility] Comment on above: Performed By: #### L 100.0100, L501.4021, L500.2500, L503.7505 ####[facility] [address] [place], [address] RBC (Bld) [#/Vol] 3.74 10*6/uL Low 4.6-6.2 [facility] Comment on above: Performed By: #### L 100.0100, L501.4021, L500.2500, L503.7505 ####[facility] [address] [place], [address] RDW SD 54.2 fl High 35.1-43.9 [facility] Comment on above: Performed By: #### L 100.0100, L501.4021, L500.2500, L503.7505 ####[facility] [address] [place], [address] WBC (Bld) [#/Vol] 7.6 10*3/uL Normal 4.4-11.0 [facility] Comment on above: Performed By: #### L 100.0100, L501.4021, L500.2500, L503.7505 ####[facility] [address] [place], [address] Carbon dioxide, total [Moles /volume] in Central venous bloodOrdered By: Chris Ochoa on 03-04-2025 CO2 [Moles/Vol] 28.6 mmol/L 21.0-32.0 [facility] Chest PA and Lateralon 03-04 Chest PA and Lateral Normal [facility] Chloride assayOrdered By: Chino Ochoa on 03-04-2025 Chloride [Moles/Vol] 102 mmol/L 98-108 [facility] Echo Complete W/ Contraston 03-04-2025 Echo Complete W/ Contrast Normal [facility] Emergency Department Summary on 03-04-2025 Emergency Department Summary Normal [facility] Eosinophil percentageOrdered By: Chris Ochoa on 03-04-2025 Eosinophils/100 WBC (Bld) 1.6 % 0-5 [facility] Erythrocyte distribution wid th ratioOrdered By: Chris Ochoa on 03-04-2025 Erythrocyte distribution width (RBC) [Ratio] 16.5 % High 11.6-14.6 [facility] Erythrocyte distribution wid th standard deviationOrdered By: Chris Ochoa on 03-04-2025 Erythrocyte distribution width (RBC) [Ratio] 54.2 fl High 35.1-43.9 [facility] Glomerular filtration rate ( GFR) estimation/1.73 sq m using serum, plasma, or whole bOrdered By: Chris Ochoa on 03-04-2025 GFR/1.73 sq M.predicted among non-blacks MDRD (S/P/Bld) [Vol rate/Area] 36 mL/min/{1.73_m2} Low >60 [facility] Comment on above: mL/min/1.73m2 CKD-EP I Creatinine Equation (2020) H AND P Exam - Hospitaliston 03-04-2025 H&P Exam - Hospitalist Normal [facility] Hematocrit Auto (Bld) [Volum e fraction]Ordered By: Chris Ochoa on 03-04-2025 Hematocrit (Bld) [Volume fraction] 33.4 % Low 40-54 [facility] Hemoglobin A1con 03-04-2025 HbA1c (Bld) [Mass fraction] 6.3 % High <=5.6 [facility] Comment on above: Result Comment: Norm al < 5.7 % Prediabetic 5.7 - 6.4 % Diabetic >or= 6.5 % Please note range changes. Performed By: #### L 501.9520, L501.5200, L501.9985 ####[facility] [address] [place], [place], [id number] Hemoglobin A1c percentageOrd ered By: Nicola Madison on 03-04-2025 HbA1c (Bld) [Mass fraction] 6.3 % High <5.7 [facility] Comment on above: Normal < 5.7 % Predi abetic 5.7 - 6.4 % Diabetic >or= 6.5 % Please note range changes. Hemoglobin measurementOrdere d By: Chris Ochoa on 03-04-2025 Hemoglobin (Bld) [Mass/Vol] 10.1 g/dL Low 13.0-16.5 [facility] Immature granulocytes/100 WB C Auto (Bld)Ordered By: Chris Ochoa on 03-04-2025 Immature granulocytes/100 WBC (Bld) 0.700 % 0.0-0.9 [facility] Comment on above: IG% - Immature Granu locytes (promyelocytes, myelocytes and metamyelocytes) > 1% indicates that a LEFT SHIFT is Present. Ketones Test strip Ql (U)Ord ered By: Nicola Madison on 03-04-2025 Ketones Ql (U) Negative Negative [facility] L499.0042on 03-04-2025 Trop T High Sen 45 ng/L High <=22 [facility] Comment on above: Performed By: #### L 499.0042 ####[facility] [address] [place], [address] L499.0043on 03-04-2025 Trop T High Sen 42 ng/L High <=22 [facility] Comment on above: Performed By: #### L 499.0043 ####[facility] [address] [place], [address] L501.4021on 03-04-2025 Trop T High Sen 44 ng/L High <=22 [facility] Comment on above: Performed By: #### L 100.0100, L501.4021, L500.2500, L503.7505 ####[facility] [address] [place], [address] L503.7505on 03-04-2025 Natriuretic peptide B (Bld) [Mass/Vol] 3316 pg/mL High <=1800 [facility] Comment on above: Result Comment: Hear t Failure Unlikely: < 300 pg/mLHeart Failure Likely< 50 Years: > 450 pg/mL50-75 Years: > 900 pg/mL>75 Years: > 1800 pg/mL Performed By: #### L 100.0100, L501.4021, L500.2500, L503.7505 ####[facility] [address] [place], [address] MCV (mean corpuscular volume ) determinationOrdered By: Chris Ochoa on 03-04-2025 MCV (RBC) [Entitic vol] 89.3 fL 80-94 [facility] Magnesiumon 03-04-2025 Magnesium [Mass/Vol] 2.0 mg/dL Normal 1.5-2.2 [facility] Comment on above: Performed By: #### L 501.9520, L501.5200, L501.9985 ####[facility] [address] [place], [address] Mean corpuscular hemoglobin (MCH) determinationOrdered By: Chris Ochoa on 03-04-2025 MCH (RBC) [Entitic mass] 27.0 pg 27.0-32.0 [facility] Mean corpuscular hemoglobin concentration (MCHC) determinationOrdered By: Chris Ochoa on 03-04-2025 MCHC (RBC) [Mass/Vol] 30.2 g/dL Low 32-36 [facility] Mean platelet volume determi nationOrdered By: Chris Ochoa on 03-04-2025 Platelet mean volume (Bld) [Entitic vol] 10.2 fL 6.2-12.0 [facility] Microscopic analysis of urin e for red blood cells (RBC)Ordered By: Nicola Madison on 03-04-2025 Microscopic analysis of urine for red blood cells (RBC) 5-10 SEEN /hpf 0-5 [facility] Monocyte percentageOrdered B y: Chris Ochoa on 03-04-2025 Monocytes/100 WBC (Bld) 9.1 % 0-10 [facility] Mucus LM Ql (Urine sed)Order ed By: Nicola Madison on 03-04-2025 Mucus Ql (Urine sed) 0 SEEN /hpf [facility] Natriuretic peptide.B prohor girish N-Terminal [Mass/volume] in Serum or PlasmaOrdered By: Chris Ochoa on 03-04-2025 Natriuretic peptide.B prohormone N-Terminal [Mass/Vol] 3316 pg/mL High <1800 [facility] Comment on above: Heart Failure Unlike ly: < 300 pg/mLHeart Failure Likely< 50 Years: > 450 pg/mL50-75 Years: > 900 pg/mL>75 Years: > 1800 pg/mL Neutrophil percentageOrdered By: Chris Ochoa on 03-04-2025 Neutrophils/100 WBC (Bld) 78.1 % High 47-70 [facility] Nitrite Test strip Ql (U)Ord ered By: Nicola Madison on 03-04-2025 Nitrite Ql (U) Positive High Negative [facility] Nucleated red blood cell per centageOrdered By: Chris Ochoa on 03-04-2025 Nucleated RBC/100 WBC (Bld) [Ratio] 0 % 0-5 [facility] Platelet countOrdered By: Chino Ochoa on 03-04-2025 Platelets (Bld) [#/Vol] 189 10*3/uL 150-450 [facility] Potassium measurement (mass/ volume)Ordered By: Chris Ochoa on 03-04-2025 Potassium (Unsp spec) [Mass/Vol] 5.2 mmol/L High 3.3-5.1 [facility] Protein Test strip Ql (U)Ord ered By: Nicola Madison on 03-04-2025 Protein Ql (U) 100 mg/dl High Negative [facility] RBC Auto (Bld) [#/Vol]Ordere d By: Chris Ochoa on 03-04-2025 RBC (Bld) [#/Vol] 3.74 10*6/uL Low 4.6-6.2 [facility] Serum creatinine measurement (mass/volume)Ordered By: Chris Ochoa on 03-04-2025 Creatinine [Mass/Vol] 1.86 mg/dL High 0.70-1.20 [facility] Serum glucose measurement (m ass/volume)Ordered By: Chris Ochoa on 03-04-2025 Glucose [Mass/Vol] 124 mg/dL High 70-99 [facility] Serum or plasma calcium kingsley urement (mass/volume)Ordered By: Chris Ochoa on 03-04-2025 Calcium [Mass/Vol] 9.3 mg/dL 7.6-11.0 [facility] Serum or plasma urea nitroge n measurement (mass/volume)Ordered By: Chris Ochoa on 03-04-2025 Urea nitrogen [Mass/Vol] 37 mg/dL High 4-19 [facility] Sodium levelOrdered By: Chris Ochoa on 03-04-2025 Sodium [Moles/Vol] 138 mmol/L 133-145 [facility] Squamous epithelial cells de tection in urine sediment by light microscopyOrdered By: Nicola Madison on 03-04-2025 Epithelial cells.squamous LM Ql (Urine sed) 0 SEEN /hpf 0-5 [facility] TSH DL <= 0.005 mIU/L QnOrde red By: Nicola Madison on 03-04-2025 TSH Qn 3.780 uIU/mL 0.300-4.200 [facility] Thyroid Stim Hormone (TSH)on 03-04-2025 TSH 3.780 uIU/mL Normal 0.300-4.200 [facility] Comment on above: Performed By: #### L 501.9520, L501.5200, L501.9985 ####[facility] [address] [place], [place], [id number] Troponin T.cardiac [Mass/vol ume] in Serum or Plasma by High sensitivity methodOrdered By: Chris Ochoa on 03-04-2025 Troponin T.cardiac High sensitivity method [Mass/Vol] 42 ng/L High <22 [facility] Troponin T.cardiac High sensitivity method [Mass/Vol] 45 ng/L High <22 [facility] Troponin T.cardiac High sensitivity method [Mass/Vol] 44 ng/L High <22 [facility] Urinalysis, Completeon 03-04 RBC 5-10 SEEN Normal 0-5 [facility] Comment on above: Order Comment: CLEAN CATCH Performed By: #### L 400.0001 ####[facility] [address] [place], [place], [id number] BACTERIA 2+ /hpf Normal None Seen [facility] Comment on above: Order Comment: CLEAN CATCH Performed By: #### L 400.0001 ####[facility] [address] [place], [address] WBC >100 SEEN Normal 0-5 [facility] Comment on above: Order Comment: CLEAN CATCH Performed By: #### L 400.0001 ####[facility] [address] [place], [address] EPI,SQUAMOUS 0 SEEN Normal 0-5 [facility] Comment on above: Order Comment: CLEAN CATCH Performed By: #### L 400.0001 ####[facility] [address] [place], [place], [address] Mucus Ql (Urine sed) 0 SEEN Normal [facility] Comment on above: Order Comment: CLEAN CATCH Performed By: #### L 400.0001 ####[facility] [address] [place], [place], [id number] Urine clarityOrdered By: Jacob Madison on 03-04-2025 Clarity (U) Cloudy Clear [facility] Urine color determinationOrd ered By: Nicola Madison on 03-04-2025 Color (U) Yellow Yellow [facility] Urine glucose detectionOrder ed By: Nicola Madison on 03-04-2025 Glucose Ql (U) Normal mg/dl Normal [facility] Urine leukocyte esterase det ection by dipstickOrdered By: Nicola Madison on 03-04-2025 Leukocyte esterase Test strip Ql (U) 500 /ul High Negative [facility] Urine pHOrdered By: Nicola stack on 03-04-2025 pH (U) 6.5 [pH] 5.0 - 8.0 [facility] Urine sediment bacteria coun t by microscopy (number/high power field)Ordered By: Nicola Madison on 03-04-2025 Bacteria LM.HPF (Urine sed) [#/Area] 2 /[HPF] None Seen [facility] Urine specific gravity measu rementOrdered By: Nicola Madison on 03-04-2025 Specific gravity (U) [Rel density] 1.010 1.002-1.030 [facility] Urine urobilinogen measureme ntOrdered By: Nicola Madison on 03-04-2025 Urobilinogen Ql (U) Normal mg/dl Normal [facility] White blood cell (WBC) count Ordered By: Chris Ochoa on 03-04-2025 WBC (Bld) [#/Vol] 7.6 10*3/uL 4.4-11.0 [facility] White blood cell countOrdere d By: Nicola Madison on 03-04-2025 White blood cell count >100 SEEN /hpf 0-5 [facility] Absolute lymphocyte countOrd ered By: Russ Wallsangelo on 11-06-2024 Lymphocytes Auto (Unsp spec) [#/Vol] 0.82 10*3/uL Low 0.83-4.51 [facility] Absolute neutrophil countOrd ered By: Russ Wallsangelo on 11-06-2024 Neutrophils (Bld) [#/Vol] 8.1 10*3/uL High 2.0-7.7 [facility] Anion gap in Serum or Plasma Ordered By: Russ Zamora on 11-06-2024 Anion gap [Moles/Vol] 10 mmol/L 5- [facility] Automated lymphocyte count a s percentage of total leukocytesOrdered By: Russ Wallsangelo on 11-06-2024 Lymphocytes/100 WBC Auto (Unsp spec) 8.1 % Low - [facility] BUN/creatinine ratioOrdered By: Russ Wallsangelo on 11-06-2024 Urea nitrogen/Creatinine [Mass ratio] 19.3 mg/mg 10- [facility] Basophil percentageOrdered B y: Russ Zamora on 11-06-2024 Basophils/100 WBC (Bld) 0.3 % 0-1 [facility] Bilirubin, totalOrdered By: Russ Wallsangelo on 11-06-2024 Bilirubin [Mass/Vol] 0.46 mg/dL 0.00-1.30 [facility] CBC W/Diff, Automatedon 10-19 Absolute Lymph 0.82 X10 3/uL Low 0.83-4.51 [facility] Comment on above: Performed By: #### L 500.4050, L504.2610, L100.0100 ####[facility] [address] [place], [address] Absolute Neut 8.1 X10 3/uL High 2.0-7.7 [facility] Comment on above: Performed By: #### L 500.4050, L504.2610, L100.0100 ####[facility] [address] [place], [address] Basophils/100 WBC (Bld) 0.3 % Normal 0-1 [facility] Comment on above: Performed By: #### L 500.4050, L504.2610, L100.0100 ####[facility] [address] [place], [address] Eosinophils/100 WBC (Bld) 1.7 % Normal 0-5 [facility] Comment on above: Performed By: #### L 500.4050, L504.2610, L100.0100 ####[facility] [address] [place], [address] Erythrocyte distribution width (RBC) [Ratio] 16.8 % High 11.6-14.6 [facility] Comment on above: Performed By: #### L 500.4050, L504.2610, L100.0100 ####[facility] [address] [place], [address] Hematocrit (Bld) [Volume fraction] 34.2 % Low 40-54 [facility] Comment on above: Performed By: #### L 500.4050, L504.2610, L100.0100 ####[facility] [address] [place], [address] Hemoglobin (Bld) [Mass/Vol] 10.7 g/dL Low 13.0-16.5 [facility] Comment on above: Performed By: #### L 500.4050, L504.2610, L100.0100 ####[facility] [address] [place], [address] IG% 0.500 Normal 0.0-0.9 [facility] Comment on above: Result Comment: IG% - Immature Granulocytes (promyelocytes, myelocytes andmetamyelocytes) > 1% indicates that a LEFT SHIFT is Present. Performed By: #### L 500.4050, L504.2610, L100.0100 ####[facility] [address] [place], [address] Lymphocytes/100 WBC (Bld) 8.1 % Low 19-41 [facility] Comment on above: Performed By: #### L 500.4050, L504.2610, L100.0100 ####[facility] [address] [place], [address] MCH (RBC) [Entitic mass] 27.4 pg Normal 27.0-32.0 [facility] Comment on above: Performed By: #### L 500.4050, L504.2610, L100.0100 ####[facility] [address] [place], [address] MCHC (RBC) [Mass/Vol] 31.3 g/dL Low 32-36 [facility] Comment on above: Performed By: #### L 500.4050, L504.2610, L100.0100 ####[facility] [address] [place], [address] MCV (RBC) [Entitic vol] 87.5 fL Normal 80-94 [facility] Comment on above: Performed By: #### L 500.4050, L504.2610, L100.0100 ####[facility] [address] [place], [address] Monocytes/100 WBC (Bld) 8.8 % Normal 0-10 [facility] Comment on above: Performed By: #### L 500.4050, L504.2610, L100.0100 ####[facility] [address] [place], [address] Neutrophils/100 WBC (Bld) 80.6 % High 47-70 [facility] Comment on above: Performed By: #### L 500.4050, L504.2610, L100.0100 ####[facility] [address] [place], [address] Nucleated RBC (Bld) [#/Vol] 0 10*3/uL Normal 0-5 [facility] Comment on above: Performed By: #### L 500.4050, L504.2610, L100.0100 ####[facility] [address] [place], [address] Platelet mean volume (Bld) [Entitic vol] 10.4 fL Normal 6.2-12.0 [facility] Comment on above: Performed By: #### L 500.4050, L504.2610, L100.0100 ####[facility] [address] [place], [address] Platelets (Bld) [#/Vol] 212 10*3/uL Normal 150-450 [facility] Comment on above: Performed By: #### L 500.4050, L504.2610, L100.0100 ####[facility] [address] [place], [address] RBC (Bld) [#/Vol] 3.91 10*6/uL Low 4.6-6.2 [facility] Comment on above: Performed By: #### L 500.4050, L504.2610, L100.0100 ####[facility] [address] [place], [address] RDW SD 53.5 fl High 35.1-43.9 [facility] Comment on above: Performed By: #### L 500.4050, L504.2610, L100.0100 ####[facility] [address] [place], [address] WBC (Bld) [#/Vol] 10.1 10*3/uL Normal 4.4-11.0 [facility] Comment on above: Performed By: #### L 500.4050, L504.2610, L100.0100 ####[facility] [address] [place], [address] Carbon dioxide, total [Moles /volume] in Central venous bloodOrdered By: Russ Zamora on 11-06-2024 CO2 [Moles/Vol] 25.2 mmol/L 21.0-32.0 [facility] Chloride assayOrdered By: Flores Zamora on 11-06-2024 Chloride [Moles/Vol] 105 mmol/L 98-108 [facility] Comprehensive Metabolic Prof ilon 11-06-2024 Albumin [Mass/Vol] 3.8 g/dL Normal 3.4-4.8 [facility] Comment on above: Performed By: #### L 500.4050, L504.2610, L100.0100 ####[facility] [address] [place], [address] Albumin/Globulin [Mass ratio] 0.9 {ratio} Normal 0.9-2.4 [facility] Comment on above: Performed By: #### L 500.4050, L504.2610, L100.0100 ####[facility] [address] [place], [address] ALK PHOS 72 U/L Normal 40-129 [facility] Comment on above: Performed By: #### L 500.4050, L504.2610, L100.0100 ####[facility] [address] [place], [address] ALT [Catalytic activity/Vol] 10 U/L Normal <=46 [facility] Comment on above: Performed By: #### L 500.4050, L504.2610, L100.0100 ####[facility] [address] [place], [address] AST [Catalytic activity/Vol] 16 U/L Normal <=37 [facility] Comment on above: Performed By: #### L 500.4050, L504.2610, L100.0100 ####[facility] [address] [place], [address] Bilirubin [Mass/Vol] 0.46 mg/dL Normal 0.00-1.30 [facility] Comment on above: Performed By: #### L 500.4050, L504.2610, L100.0100 ####[facility] [address] [place], [address] BUN/CRE 19.3 RATIO Normal 10-20 [facility] Comment on above: Performed By: #### L 500.4050, L504.2610, L100.0100 ####[facility] [address] [place], [address] Calcium [Mass/Vol] 9.1 mg/dL Normal 7.6-11.0 [facility] Comment on above: Performed By: #### L 500.4050, L504.2610, L100.0100 ####[facility] [address] [place], [address] Chloride [Moles/Vol] 105 mmol/L Normal 98-108 [facility] Comment on above: Performed By: #### L 500.4050, L504.2610, L100.0100 ####[facility] [address] [place], [address] CO2 [Moles/Vol] 25.2 mmol/L Normal 21.0-32.0 [facility] Comment on above: Performed By: #### L 500.4050, L504.2610, L100.0100 ####[facility] [address] [place], [address] Creatinine [Mass/Vol] 1.87 mg/dL High 0.70-1.20 [facility] Comment on above: Performed By: #### L 500.4050, L504.2610, L100.0100 ####[facility] [address] [place], [address] ECRCL 32.00 ml/min Low 50-250 [facility] Comment on above: Performed By: #### L 500.4050, L504.2610, L100.0100 ####[facility] [address] [place], [address] GAP 10 Normal 5-15 [facility] Comment on above: Performed By: #### L 500.4050, L504.2610, L100.0100 ####[facility] [address] [place], [address] GFR/1.73 sq M.predicted among non-blacks MDRD (S/P/Bld) [Vol rate/Area] 36 mL/min/{1.73_m2} Low >60 [facility] Comment on above: Result Comment: mL/m in/1.73m2 CKD-EPI Creatinine Equation (2020) Performed By: #### L 500.4050, L504.2610, L100.0100 ####[facility] [address] [place], [address] Globulin (S) [Mass/Vol] 4.1 g/dL Normal 2.2-4.2 [facility] Comment on above: Performed By: #### L 500.4050, L504.2610, L100.0100 ####[facility] [address] [place], [address] Glucose [Mass/Vol] 132 mg/dL High 70-99 [facility] Comment on above: Performed By: #### L 500.4050, L504.2610, L100.0100 ####[facility] [address] [place], [address] Potassium [Moles/Vol] 4.8 mmol/L Normal 3.3-5.1 [facility] Comment on above: Performed By: #### L 500.4050, L504.2610, L100.0100 ####[facility] [address] [place], [address] Sodium [Moles/Vol] 140 mmol/L Normal 133-145 [facility] Comment on above: Performed By: #### L 500.4050, L504.2610, L100.0100 ####[facility] [address] [place], [address] T PROT 7.9 g/dL Normal 5.9-8.4 [facility] Comment on above: Performed By: #### L 500.4050, L504.2610, L100.0100 ####[facility] [address] [place], [address] Urea nitrogen [Mass/Vol] 36 mg/dL High 4-19 [facility] Comment on above: Performed By: #### L 500.4050, L504.2610, L100.0100 ####[facility] [address] [place], [address] Eosinophil percentageOrdered By: Russ Zamora on 11-06-2024 Eosinophils/100 WBC (Bld) 1.7 % 0-5 [facility] Erythrocyte distribution wid th ratioOrdered By: Russ Zamora on 11-06-2024 Erythrocyte distribution width (RBC) [Ratio] 16.8 % High 11.6-14.6 [facility] Erythrocyte distribution wid th standard deviationOrdered By: Russ Zamora on 11-06-2024 Erythrocyte distribution width (RBC) [Entitic vol] 53.5 fL High 35.1-43.9 [facility] Erythrocyte distribution width (RBC) [Ratio] 53.5 fl High 35.1-43.9 [facility] Estimation of creatinine rowdy aranceOrdered By: Russ Zamora on 11-06-2024 Estimated Creatinine Clearance Calc 32.00 ml/min Low 50-250 [facility] GFR/1.73 sq M.predicted kaylyn g non-blacks MDRD (S/P/Bld) [Vol rate/Area]Ordered By: Russ Zamora on 11-06-2024 Estimated GFR (MDRD) Non-Af Amer 36 Low >60 [facility] Comment on above: mL/min/1.73m2 CKD-EP I Creatinine Equation (2020) Glomerular filtration rate ( GFR) estimation/1.73 sq m using serum, plasma, or whole bOrdered By: Russ Zamora on 11-06-2024 GFR/1.73 sq M.predicted among non-blacks MDRD (S/P/Bld) [Vol rate/Area] 36 mL/min/{1.73_m2} Low >60 [facility] Comment on above: mL/min/1.73m2 CKD-EP I Creatinine Equation (2020) Hematocrit Auto (Bld) [Volum e fraction]Ordered By: Russ Zamora on 11-06-2024 Hematocrit (Bld) [Volume fraction] 34.2 % Low 40-54 [facility] Hemoglobin measurementOrdere d By: Russ Zamora on 11-06-2024 Hemoglobin (Bld) [Mass/Vol] 10.7 g/dL Low 13.0-16.5 [facility] Immature granulocytes/100 WB C Auto (Bld)Ordered By: Russ Zamora on 11-06-2024 Immature granulocytes/100 WBC (Bld) 0.500 % 0.0-0.9 [facility] Comment on above: IG% - Immature Granu locytes (promyelocytes, myelocytes and metamyelocytes) > 1% indicates that a LEFT SHIFT is Present. LDHon 11-06-2024 LDH 135 U/L Normal 87-241 [facility] Comment on above: Order Comment: 1 Performed By: #### L 500.4050, L504.2610, L100.0100 ####[facility] [address] [place], [place], [id number] Laboratory - Chemistry and C hemistry - challengeOrdered By: Russ Zamora on 11-06-2024 AST [Catalytic activity/Vol] 16 U/L <38 [facility] Lactate dehydrogenase (LDH) measurementOrdered By: Russ Zamora on 11-06-2024 LDH [Catalytic activity/Vol] 135 U/L 87-241 [facility] Lymphocytes Auto (Unsp spec) [#/Vol]Ordered By: Russ Zamora on 11-06-2024 Lymphocytes (Bld) [#/Vol] 0.82 10*3/uL Low 0.83-4.5 1 [facility] Lymphocytes/100 WBC Auto (Un sp spec)Ordered By: Russ Zamora on 11-06-2024 Lymphocytes/100 WBC (Bld) 8.1 % Low 19-41 [facility] MCV (mean corpuscular volume ) determinationOrdered By: Russ Zamora on 11-06-2024 MCV (RBC) [Entitic vol] 87.5 fL 80-94 [facility] Mean corpuscular hemoglobin (MCH) determinationOrdered By: Russ Zamora on 11-06-2024 MCH (RBC) [Entitic mass] 27.4 pg 27.0-32.0 [facility] Mean corpuscular hemoglobin concentration (MCHC) determinationOrdered By: Russ Zamora on 11-06-2024 MCHC (RBC) [Mass/Vol] 31.3 g/dL Low 32-36 [facility] Mean platelet volume determi nationOrdered By: Russ Zamora on 11-06-2024 Platelet mean volume (Bld) [Entitic vol] 10.4 fL 6.2-12.0 [facility] Monocyte percentageOrdered B y: Russ Zamora on 11-06-2024 Monocytes/100 WBC (Bld) 8.8 % 0-10 [facility] Neutrophil percentageOrdered By: Russ Zamora on 11-06-2024 Neutrophils/100 WBC (Bld) 80.6 % High 47-70 [facility] Nucleated red blood cell per centageOrdered By: Russ Zamora on 11-06-2024 Nucleated RBC/100 WBC (Bld) [Ratio] 0 % 0-5 [facility] Oncology Visit Reporton - 0-2024 Oncology Visit Report Normal [facility] Platelet countOrdered By: Flores Zamora on 11-06-2024 Platelets (Bld) [#/Vol] 212 10*3/uL 150-450 [facility] Potassium (Unsp spec) [Mass/ Vol]Ordered By: Russ Zamora on 11-06-2024 Potassium [Moles/Vol] 4.8 mmol/L 3.3-5.1 [facility] Potassium measurement (mass/ volume)Ordered By: Russ Zamora on 11-06-2024 Potassium (Unsp spec) [Mass/Vol] 4.8 mmol/L 3.3-5.1 [facility] RBC Auto (Bld) [#/Vol]Ordere d By: Russ Zamora on 11-06-2024 RBC (Bld) [#/Vol] 3.91 10*6/uL Low 4.6-6.2 [facility] Serum creatinine measurement (mass/volume)Ordered By: Russ Zamora on 11-06-2024 Creatinine [Mass/Vol] 1.87 mg/dL High 0.70-1.20 [facility] Serum globulin measurementOr dered By: Russ Zamora on 11-06-2024 Globulin (S) [Mass/Vol] 4.1 g/dL 2.2-4.2 [facility] Serum glucose measurement (m ass/volume)Ordered By: Russ Zamora on 11-06-2024 Glucose [Mass/Vol] 132 mg/dL High 70-99 [facility] Serum or plasma alanine ortiz otransferase (ALT) measurementOrdered By: Russ Zamora on 11-06-2024 ALT [Catalytic activity/Vol] 10 U/L <47 [facility] Serum or plasma albumin kingsley urement (mass/volume)Ordered By: Russ Zamora on 11-06-2024 Albumin [Mass/Vol] 3.8 g/dL 3.4-4.8 [facility] Serum or plasma albumin/glob ulin mass ratioOrdered By: Russ Zamora on 11-06-2024 Albumin/Globulin [Mass ratio] 0.9 {ratio} 0.9-2.4 [facility] Serum or plasma alkaline roosevelt sphatase measurementOrdered By: Russ Zamora on 11-06-2024 ALP [Catalytic activity/Vol] 72 U/L 40-129 [facility] Serum or plasma calcium kingsley urement (mass/volume)Ordered By: Russ Zamora on 11-06-2024 Calcium [Mass/Vol] 9.1 mg/dL 7.6-11.0 [facility] Serum or plasma urea nitroge n measurement (mass/volume)Ordered By: Russ Zamora on 11-06-2024 Urea nitrogen [Mass/Vol] 36 mg/dL High 4-19 [facility] Sodium levelOrdered By: Esau Zamora on 11-06-2024 Sodium [Moles/Vol] 140 mmol/L 133-145 [facility] Total proteinOrdered By: Frantz Zamora on 11-06-2024 Protein [Mass/Vol] 7.9 g/dL 5.9-8.4 [facility] White blood cell (WBC) count Ordered By: Russ Zamora on 11-06-2024 WBC (Bld) [#/Vol] 10.1 10*3/uL 4.4-11.0 [facility] CREATININE FINGERSTICKon Creatinine [Mass/Vol] 1.5 mg/dL High 0.70-1.30 [facility] Comment on above: Performed By: #### L 9100.0200 ####[facility] [address] [place], [place], [id number] GFR/1.73 sq M.predicted among non-blacks MDRD (S/P/Bld) [Vol rate/Area] 48.0000 mL/min/{1.73_m2} Low >60 [facility] Comment on above: Performed By: #### L 9100.0200 ####[facility] [address] [place], [address] CT Chest AND Abd W/ Contrast on 10-30-2024 CT Chest AND Abd W/ Contrast Normal [facility] Creatinine measurement at be dsideOrdered By: Russ Zamora on 10-30-2024 Creatinine [Mass/Vol] 1.5 mg/dL High 0.70-1.30 [facility] EGFROrdered By: Russ Zamora on 10-30-2024 GFR/1.73 sq M.predicted among non-blacks MDRD (S/P/Bld) [Vol rate/Area] 48.0000 mL/min/{1.73_m2} Low >60 [facility] Pulmonary Visit Reporton Pulmonary Visit Report Normal [facility] Hemoglobin A1con 10-21-2024 HbA1c (Bld) [Mass fraction] 6.6 % Normal <=5.6 [facility] Comment on above: Performed By: #### L 501.9985 ####[facility] [address] [place], [address] Hemoglobin A1c percentageOrd ered By: Tonio Fajardo on 10-20-2024 HbA1c (Bld) [Mass fraction] 6.6 % >5.7 [facility] 6 Minute Walk Teston 28-2 025 6 Minute Walk Test Normal [facility] Absolute neutrophil countOrd ered By: Leslie Arriaga on 09-25-2024 Neutrophils (Bld) [#/Vol] 6.7 10*3/uL 2.0-7.7 [facility] BNP (brain natriuretic pepti de measurement)Ordered By: Leslie Arriaga on 09-25-2024 Natriuretic peptide B (Bld) [Mass/Vol] 183.7 pg/mL High 0-100 [facility] BNP,B-Type NATRIURETIC PEPTI Adrienne 09-25-2024 Natriuretic peptide B (Bld) [Mass/Vol] 183.7 pg/mL High 0-100 [facility] Comment on above: Performed By: #### L 100.0100, L503.6620, L500.2500 ####[facility] [address] [place], [address] Basic Metabolic Profile (BMP )on 09-25-2024 BUN/CRE 15.4 RATIO Normal 10-20 [facility] Comment on above: Performed By: #### L 100.0100, L503.6620, L500.2500 ####[facility] [address] [place], [address] CA,Total 9.1 mg/dL Normal 8.5-10.1 [facility] Comment on above: Performed By: #### L 100.0100, L503.6620, L500.2500 ####[facility] [address] [place], [address] Chloride [Moles/Vol] 105 mmol/L Normal 98-107 [facility] Comment on above: Performed By: #### L 100.0100, L503.6620, L500.2500 ####[facility] [address] [place], [address] CO2 [Moles/Vol] 28.0 mmol/L Normal 21.0-32.0 [facility] Comment on above: Performed By: #### L 100.0100, L503.6620, L500.2500 ####[facility] [address] [place], [address] Creatinine [Mass/Vol] 2.21 mg/dL High 0.70-1.30 [facility] Comment on above: Result Comment: The validity of the calculated GFR GFRAA in patients over70 years has not been determined. Clinical correlation isessential. Performed By: #### L 100.0100, L503.6620, L500.2500 ####[facility] [address] [place], [address] EST GFR - AA 37 mL/min Low >60 [facility] Comment on above: Result Comment: Afri can Bulgarian GFR Calc Performed By: #### L 100.0100, L503.6620, L500.2500 ####[facility] [address] [place], [address] GAP 5 Normal 5-15 [facility] Comment on above: Performed By: #### L 100.0100, L503.6620, L500.2500 ####[facility] [address] [place], [address] GFR/1.73 sq M.predicted among non-blacks MDRD (S/P/Bld) [Vol rate/Area] 31 mL/min/{1.73_m2} Low >60 [facility] Comment on above: Result Comment: Non- GFR Calc Performed By: #### L 100.0100, L503.6620, L500.2500 ####[facility] [address] [place], [address] Glucose [Mass/Vol] 127 mg/dL High 74-106 [facility] Comment on above: Result Comment: Fast ing Glucose result greater than or equal to 126 mg/dLsuggests DIABETES MELLITUS per A.D.A. criteria. Performed By: #### L 100.0100, L503.6620, L500.2500 ####[facility] [address] [place], [address] Potassium [Moles/Vol] 4.3 mmol/L Normal 3.5-5.1 [facility] Comment on above: Performed By: #### L 100.0100, L503.6620, L500.2500 ####[facility] [address] [place], [address] Sodium [Moles/Vol] 138 mmol/L Normal 136-145 [facility] Comment on above: Performed By: #### L 100.0100, L503.6620, L500.2500 ####[facility] [address] [place], [address] Urea nitrogen [Mass/Vol] 34 mg/dL High 7-18 [facility] Comment on above: Performed By: #### L 100.0100, L503.6620, L500.2500 ####[facility] [address] [place], [address] Basophil percentageOrdered B y: Leslie Arriaga on 09-25-2024 Basophils/100 WBC (Bld) 0.6 % 0-1 [facility] Blood urea nitrogen (BUN)/cr eatinine ratioOrdered By: Leslie Arriaga on 09-25-2024 Urea nitrogen/Creatinine [Mass ratio] 15.4 mg/mg 10-20 [facility] CBC W/Diff, Automatedon Absolute Lymph 0.91 X10 3/uL Normal 0.83-4.51 [facility] Comment on above: Performed By: #### L 100.0100, L503.6620, L500.2500 ####[facility] [address] [place], [address] Absolute Neut 6.7 X10 3/uL Normal 2.0-7.7 [facility] Comment on above: Performed By: #### L 100.0100, L503.6620, L500.2500 ####[facility] [address] [place], [address] Basophils/100 WBC (Bld) 0.6 % Normal 0-1 [facility] Comment on above: Performed By: #### L 100.0100, L503.6620, L500.2500 ####[facility] [address] [place], [address] Eosinophils/100 WBC (Bld) 1.1 % Normal 0-5 [facility] Comment on above: Performed By: #### L 100.0100, L503.6620, L500.2500 ####[facility] [address] [place], [address] Erythrocyte distribution width (RBC) [Ratio] 16.2 % High 11.6-14.6 [facility] Comment on above: Performed By: #### L 100.0100, L503.6620, L500.2500 ####[facility] [address] [place], [address] Hematocrit (Bld) [Volume fraction] 36.0 % Low 40-54 [facility] Comment on above: Performed By: #### L 100.0100, L503.6620, L500.2500 ####[facility] [address] [place], [address] Hemoglobin (Bld) [Mass/Vol] 11.1 g/dL Low 13.0-16.5 [facility] Comment on above: Performed By: #### L 100.0100, L503.6620, L500.2500 ####[facility] [address] [place], [address] IG% 0.700 Normal 0.0-0.9 [facility] Comment on above: Result Comment: IG% - Immature Granulocytes (promyelocytes, myelocytes andmetamyelocytes) > 1% indicates that a LEFT SHIFT is Present. Performed By: #### L 100.0100, L503.6620, L500.2500 ####[facility] [address] [place], [address] Lymphocytes/100 WBC (Bld) 10.4 % Low 19-41 [facility] Comment on above: Performed By: #### L 100.0100, L503.6620, L500.2500 ####[facility] [address] [place], [address] MCH (RBC) [Entitic mass] 27.7 pg Normal 27.0-32.0 [facility] Comment on above: Performed By: #### L 100.0100, L503.6620, L500.2500 ####[facility] [address] [place], [address] MCHC (RBC) [Mass/Vol] 30.8 g/dL Low 32-36 [facility] Comment on above: Performed By: #### L 100.0100, L503.6620, L500.2500 ####[facility] [address] [place], [address] MCV (RBC) [Entitic vol] 89.8 fL Normal 80-94 [facility] Comment on above: Performed By: #### L 100.0100, L503.6620, L500.2500 ####[facility] [address] [place], [address] Monocytes/100 WBC (Bld) 10.3 % High 0-10 [facility] Comment on above: Performed By: #### L 100.0100, L503.6620, L500.2500 ####[facility] [address] [place], [address] Neutrophils/100 WBC (Bld) 76.9 % High 47-70 [facility] [facility] Comment on above: Performed By: #### L 100.0100, L503.6620, L500.2500 ####[facility] [address] [place], [address] Nucleated RBC (Bld) [#/Vol] 0 10*3/uL Normal 0-5 [facility] Comment on above: Performed By: #### L 100.0100, L503.6620, L500.2500 ####[facility] [address] [place], [address] Platelet mean volume (Bld) [Entitic vol] 10.5 fL Normal 6.2-12.0 [facility] Comment on above: Performed By: #### L 100.0100, L503.6620, L500.2500 ####[facility] [address] [place], [address] Platelets (Bld) [#/Vol] 256 10*3/uL Normal 150-450 [facility] Comment on above: Performed By: #### L 100.0100, L503.6620, L500.2500 ####[facility] [address] [place], [address] RBC (Bld) [#/Vol] 4.01 10*6/uL Low 4.6-6.2 [facility] Comment on above: Performed By: #### L 100.0100, L503.6620, L500.2500 ####[facility] [address] [place], [address] RDW SD 52.7 fl High 35.1-43.9 [facility] Comment on above: Performed By: #### L 100.0100, L503.6620, L500.2500 ####[facility] [address] [place], [address] WBC (Bld) [#/Vol] 8.7 10*3/uL Normal 4.4-11.0 [facility] Comment on above: Performed By: #### L 100.0100, L503.6620, L500.2500 ####[facility] [address] [place], [address] Carbon dioxide measurementOr dered By: Leslie Arriaga on 09-25-2024 CO2 [Moles/Vol] 28.0 mmol/L 21.0-32.0 [facility] Cardiology Visit Reporton Cardiology Visit Report Normal [facility] Chest PA and Lateralon 09-25 Chest PA and Lateral Normal [facility] Chloride measurementOrdered By: Leslie Arriaga on 09-25-2024 Chloride [Moles/Vol] 105 mmol/L 98-107 [facility] Eosinophil percentageOrdered By: Leslie Arriaga on 09-25-2024 Eosinophils/100 WBC (Bld) 1.1 % 0-5 [facility] Erythrocyte distribution wid th ratioOrdered By: Leslie Arriaga on 09-25-2024 Erythrocyte distribution width (RBC) [Ratio] 16.2 % High 11.6-14.6 [facility] Erythrocyte distribution wid th standard deviationOrdered By: Leslie Arriaga on 09-25-2024 Erythrocyte distribution width (RBC) [Entitic vol] 52.7 fL High 35.1-43.9 [facility] Estimated glomerular filtrat ion rate (GFR) AmericanOrdered By: Leslie Arriaga on 09-25-2024 Estimated GFR (MDRD) Amer 37 mL/min Low >60 [facility] Comment on above: GFR Calc Glomerular filtration rate ( GFR) estimationOrdered By: Leslie Arriaga on 09-25-2024 Estimated GFR (MDRD) Non-Af Amer 31 mL/min Low >60 [facility] Comment on above: Non- GFR Calc Glucose measurementOrdered B y: Leslie Arriaga on 09-25-2024 Glucose [Mass/Vol] 127 mg/dL High 74-106 [facility] Comment on above: Fasting Glucose resu lt greater than or equal to 126 mg/dL suggests DIABETES MELLITUS per A.D.A. criteria. Hematocrit Auto (Bld) [Volum e fraction]Ordered By: Leslie Arriaga on 09-25-2024 Hematocrit (Bld) [Volume fraction] 36.0 % Low 40-54 [facility] Hemoglobin measurementOrdere d By: Leslie Arriaga on 09-25-2024 Hemoglobin (Bld) [Mass/Vol] 11.1 g/dL Low 13.0-16.5 [facility] Immature granulocytes/100 WB C Auto (Bld)Ordered By: Leslie Arriaga on 09-25-2024 Immature granulocytes/100 WBC (Bld) 0.700 % 0.0-0.9 [facility] Comment on above: IG% - Immature Granu locytes (promyelocytes, myelocytes and metamyelocytes) > 1% indicates that a LEFT SHIFT is Present. Lymphocytes Auto (Unsp spec) [#/Vol]Ordered By: Leslie Arriaga on 09-25-2024 Lymphocytes (Bld) [#/Vol] 0.91 10*3/uL 0.83-4.5 1 [facility] Lymphocytes/100 WBC Auto (Un sp spec)Ordered By: Leslie Arriaga on 09-25-2024 Lymphocytes/100 WBC (Bld) 10.4 % Low 19-41 [facility] MCV (mean corpuscular volume ) determinationOrdered By: Leslie Arriaga on 09-25-2024 MCV (RBC) [Entitic vol] 89.8 fL 80-94 [facility] Mean corpuscular hemoglobin (MCH) determinationOrdered By: Leslie Arriaga on 09-25-2024 MCH (RBC) [Entitic mass] 27.7 pg 27.0-32.0 [facility] Mean corpuscular hemoglobin concentration (MCHC) determinationOrdered By: Leslie Arriaga on 09-25-2024 MCHC (RBC) [Mass/Vol] 30.8 g/dL Low 32-36 [facility] Mean platelet volume determi nationOrdered By: Leslie Arriaga on 09-25-2024 Platelet mean volume (Bld) [Entitic vol] 10.5 fL 6.2-12.0 [facility] Monocyte percentageOrdered B y: Leslie Arriaga on 09-25-2024 Monocytes/100 WBC (Bld) 10.3 % High 0-10 [facility] Neutrophil percentageOrdered By: Leslie Arriaga on 09-25-2024 Neutrophils/100 WBC (Bld) 76.9 % High 47-70 [facility] Nucleated red blood cell per centageOrdered By: Leslie Arriaga on 09-25-2024 Nucleated RBC/100 WBC (Bld) [Ratio] 0 % 0-5 [facility] Platelet countOrdered By: Linsey Arriaga on 09-25-2024 Platelets (Bld) [#/Vol] 256 10*3/uL 150-450 [facility] Potassium measurementOrdered By: Leslie Arriaga on 09-25-2024 Potassium [Moles/Vol] 4.3 mmol/L 3.5-5.1 [facility] RBC Auto (Bld) [#/Vol]Ordere d By: Leslie Arriaga on 09-25-2024 RBC (Bld) [#/Vol] 4.01 10*6/uL Low 4.6-6.2 [facility] Serum anion gap measurementO rdered By: Leslie Arriaga on 09-25-2024 Anion gap [Moles/Vol] 5 mmol/L 5-15 [facility] Serum or plasma calcium kingsley urement (mass/volume)Ordered By: Leslie Arriaga on 09-25-2024 Calcium [Mass/Vol] 9.1 mg/dL 8.5-10.1 [facility] Serum or plasma creatinine m easurement (mass/volume)Ordered By: Leslie Arriaga on 09-25-2024 Creatinine [Mass/Vol] 2.21 mg/dL High 0.70-1.30 [facility] Comment on above: The validity of the calculated GFR & GFRAA in patients over 70 years has not been determined. Clinical correlation is essential. Serum or plasma urea nitroge n measurement (mass/volume)Ordered By: Leslie Arriaga on 09-25-2024 Urea nitrogen [Mass/Vol] 34 mg/dL High 7-18 [facility] Sodium levelOrdered By: Brian Arriaga on 09-25-2024 Sodium [Moles/Vol] 138 mmol/L 136-145 [facility] White blood cell (WBC) count Ordered By: Leslie Santiagoell on 09-25-2024 WBC (Bld) [#/Vol] 8.7 10*3/uL 4.4-11.0 [facility] Culture, Fungus 8482on 08-04 CUF Normal [facility] Comment on above: Performed By: #### M 100.4001, M100.1999, M600.2000, M100.3000 ####[facility] [address] [place], [address] Culture, Anaerobic Any Sourc talat 07-09-2024 CUAN Prevotella and Porphyromonas species are generally SUSCEPTIBLE to Cefoxitin, Chloramphenicol, and Metronidazole and are usually RESISTANT to Penicillin. Prevotella oralis Beta Lactamase-Reportable Positive [facility] Comment on above: Performed By: #### M 100.4001, M100.1999, M600.2000, M100.3000 ####[facility] [address] [place], [address] Wound Cultureon 07-05-2024 WC Normal [facility] Comment on above: Performed By: #### M 100.4001, M100.2000, M600.2000, M100.3000 ####[facility] [address] [place], [address] Gram Stainon 07-04-2024 GS Positive [facility] Comment on above: Performed By: #### M 100.4001, M100.2000, M600.2000, M100.3000 ####[facility] [address] [place], [address] Bacteria identified Anaer cx Nom (Unsp spec)Ordered By: Joaquim Suárez on 07-03-2024 Anaerobic Culture Prevotella oralis Abnormal [facility] Fungus identified Cx Nom (Un sp spec)Ordered By: Joaquim Suárez on 07-03-2024 Fungal Culture Ann-Marie parapsilosis Abnormal [facility] Gram stainOrdered By: Bladimir Suárez on 07-03-2024 Microscopic observation Gram stain Nom (Unsp spec) [facility] Routine wound cultureOrdered By: Joaquim Suárez on 07-03-2024 Wound Culture Staphylococcus pseudintermediu Abnormal [facility] Lower Ext Art Exam w/o Exerc soco 06-17-2024 Lower Ext Art Exam w/o Exercis Normal [facility] Venous Duplex US - Hi Extre mon 06-17-2024 Venous Duplex US - Hi Extrem Normal [facility] CBC W/Diff, Automatedon - Absolute Lymph 0.94 X10 3/uL Normal 0.83-4.51 [facility] Comment on above: Performed By: #### L 504.2610, L100.0100, L500.4050 ####[facility] [address] [place], [address] Absolute Neut 5.7 X10 3/uL Normal 2.0-7.7 [facility] Comment on above: Performed By: #### L 504.2610, L100.0100, L500.4050 ####[facility] [address] [place], [address] Basophils/100 WBC (Bld) 0.6 % Normal 0-1 [facility] Comment on above: Performed By: #### L 504.2610, L100.0100, L500.4050 ####[facility] [address] [place], [address] Eosinophils/100 WBC (Bld) 2.5 % Normal 0-5 [facility] Comment on above: Performed By: #### L 504.2610, L100.0100, L500.4050 ####[facility] [address] [place], [address] Erythrocyte distribution width (RBC) [Ratio] 16.3 % High 11.6-14.6 [facility] Comment on above: Performed By: #### L 504.2610, L100.0100, L500.4050 ####[facility] [address] [place], [address] Hematocrit (Bld) [Volume fraction] 36.9 % Low 40-54 [facility] Comment on above: Performed By: #### L 504.2610, L100.0100, L500.4050 ####[facility] [address] [place], [address] Hemoglobin (Bld) [Mass/Vol] 11.3 g/dL Low 13.0-16.5 [facility] Comment on above: Performed By: #### L 504.2610, L100.0100, L500.4050 ####[facility] [address] [place], [address] IG% 1.400 High 0.0-0.9 [facility] Comment on above: Result Comment: IG% - Immature Granulocytes (promyelocytes, myelocytes andmetamyelocytes) > 1% indicates that a LEFT SHIFT is Present. Performed By: #### L 504.2610, L100.0100, L500.4050 ####[facility] [address] [place], [address] Lymphocytes/100 WBC (Bld) 11.8 % Low 19-41 [facility] Comment on above: Performed By: #### L 504.2610, L100.0100, L500.4050 ####[facility] [address] [place], [address] MCH (RBC) [Entitic mass] 27.2 pg Normal 27.0-32.0 [facility] Comment on above: Performed By: #### L 504.2610, L100.0100, L500.4050 ####[facility] [address] [place], [address] MCHC (RBC) [Mass/Vol] 30.6 g/dL Low 32-36 [facility] Comment on above: Performed By: #### L 504.2610, L100.0100, L500.4050 ####[facility] [address] [place], [address] MCV (RBC) [Entitic vol] 88.7 fL Normal 80-94 [facility] Comment on above: Performed By: #### L 504.2610, L100.0100, L500.4050 ####[facility] [address] [place], [address] Monocytes/100 WBC (Bld) 11.6 % High 0-10 [facility] Comment on above: Performed By: #### L 504.2610, L100.0100, L500.4050 ####[facility] [address] [place], [address] Neutrophils/100 WBC (Bld) 72.1 % High 47-70 [facility] Comment on above: Performed By: #### L 504.2610, L100.0100, L500.4050 ####[facility] [address] [place], [address] Nucleated RBC (Bld) [#/Vol] 0 10*3/uL Normal 0-5 [facility] Comment on above: Performed By: #### L 504.2610, L100.0100, L500.4050 ####[facility] [address] [place], [address] Platelet mean volume (Bld) [Entitic vol] 9.9 fL Normal 6.2-12.0 [facility] Comment on above: Performed By: #### L 504.2610, L100.0100, L500.4050 ####[facility] [address] [place], [address] Platelets (Bld) [#/Vol] 222 10*3/uL Normal 150-450 [facility] Comment on above: Performed By: #### L 504.2610, L100.0100, L500.4050 ####[facility] [address] [place], [address] RBC (Bld) [#/Vol] 4.16 10*6/uL Low 4.6-6.2 [facility] Comment on above: Performed By: #### L 504.2610, L100.0100, L500.4050 ####[facility] [address] [place], [address] RDW SD 53.2 fl High 35.1-43.9 [facility] Comment on above: Performed By: #### L 504.2610, L100.0100, L500.4050 ####[facility] [address] [place], [address] WBC (Bld) [#/Vol] 8.0 10*3/uL Normal 4.4-11.0 [facility] Comment on above: Performed By: #### L 504.2610, L100.0100, L500.4050 ####[facility] [address] [place], [address] [facility] 05-05-2024 Albumin [Mass/Vol] 3.1 g/dL Low 3.2-5.0 [facility] Comment on above: Order Comment: 1 Performed By: #### L 504.2610, L100.0100, L500.4050 ####[facility] [address] [place], [address] Albumin/Globulin [Mass ratio] 0.6 {ratio} Low 0.9-2.4 [facility] Comment on above: Order Comment: 1 Performed By: #### L 504.2610, L100.0100, L500.4050 ####[facility] [address] [place], [address] ALK P 60 U/L Normal 45-117 [facility] Comment on above: Order Comment: 1 Performed By: #### L 504.2610, L100.0100, L500.4050 ####[facility] [address] [place], [address] ALT [Catalytic activity/Vol] 15 U/L Low 16-61 [facility] Comment on above: Order Comment: 1 Performed By: #### L 504.2610, L100.0100, L500.4050 ####[facility] [address] [place], [address] AST [Catalytic activity/Vol] 11 U/L Low 15-37 [facility] Comment on above: Order Comment: 1 Performed By: #### L 504.2610, L100.0100, L500.4050 ####[facility] [address] [place], [address] Bilirubin [Mass/Vol] 0.40 mg/dL Normal 0.20-1.00 [facility] Comment on above: Order Comment: 1 Result Comment: For patients on eltrombopag therapy, use of Dimension [place] TBIL is not recommended. Performed By: #### L 504.2610, L100.0100, L500.4050 ####[facility] [address] [place], [address] BUN/CRE 20.3 RATIO High 10-20 [facility] Comment on above: Order Comment: 1 Performed By: #### L 504.2610, L100.0100, L500.4050 ####[facility] [address] [place], [address] CA,Total 9.3 mg/dL Normal 8.5-10.1 [facility] Comment on above: Order Comment: 1 Performed By: #### L 504.2610, L100.0100, L500.4050 ####[facility] [address] [place], [address] Chloride [Moles/Vol] 104 mmol/L Normal 98-107 [facility] Comment on above: Order Comment: 1 Performed By: #### L 504.2610, L100.0100, L500.4050 ####[facility] [address] [place], [address] CO2 [Moles/Vol] 27.0 mmol/L Normal 21.0-32.0 [facility] Comment on above: Order Comment: 1 Performed By: #### L 504.2610, L100.0100, L500.4050 ####[facility] [address] [place], [address] Creatinine [Mass/Vol] 2.17 mg/dL High 0.70-1.30 [facility] Comment on above: Order Comment: 1 Result Comment: The validity of the calculated GFR GFRAA in patients over70 years has not been determined. Clinical correlation isessential. Performed By: #### L 504.2610, L100.0100, L500.4050 ####[facility] [address] [place], [address] ECRCL 27.63 ml/min Normal [facility] Comment on above: Order Comment: 1 Performed By: #### L 504.2610, L100.0100, L500.4050 ####[facility] [address] [place], [address] EST GFR - AA 38 mL/min Low >60 [facility] Comment on above: Order Comment: 1 Result Comment: Afri can Bulgarian GFR Calc Performed By: #### L 504.2610, L100.0100, L500.4050 ####[facility] [address] [place], [address] GAP 3 Low 5-15 [facility] Comment on above: Order Comment: 1 Performed By: #### L 504.2610, L100.0100, L500.4050 ####[facility] [address] [place], [address] GFR/1.73 sq M.predicted among non-blacks MDRD (S/P/Bld) [Vol rate/Area] 31 mL/min/{1.73_m2} Low >60 [facility] Comment on above: Order Comment: 1 Result Comment: Non- GFR Calc Performed By: #### L 504.2610, L100.0100, L500.4050 ####[facility] [address] [place], [address] Globulin (S) [Mass/Vol] 4.9 g/dL High 2.2-4.2 [facility] Comment on above: Order Comment: 1 Performed By: #### L 504.2610, L100.0100, L500.4050 ####[facility] [address] [place], [address] Glucose [Mass/Vol] 130 mg/dL High 74-106 [facility] Comment on above: Order Comment: 1 Result Comment: Fast ing Glucose result greater than or equal to 126 mg/dLsuggests DIABETES MELLITUS per A.D.A. criteria. Performed By: #### L 504.2610, L100.0100, L500.4050 ####[facility] [address] [place], [address] Potassium [Moles/Vol] 4.8 mmol/L Normal 3.5-5.1 [facility] Comment on above: Order Comment: 1 Performed By: #### L 504.2610, L100.0100, L500.4050 ####[facility] [address] [place], [address] Sodium [Moles/Vol] 134 mmol/L Low 136-145 [facility] Comment on above: Order Comment: 1 Performed By: #### L 504.2610, L100.0100, L500.4050 ####[facility] [address] [place], [address] T PROT 8.0 g/dL Normal 6.4-8.2 [facility] Comment on above: Order Comment: 1 Performed By: #### L 504.2610, L100.0100, L500.4050 ####[facility] [address] [place], [address] Urea nitrogen [Mass/Vol] 44 mg/dL High 7-18 [facility] Comment on above: Order Comment: 1 Performed By: #### L 504.2610, L100.0100, L500.4050 ####[facility] [address] [place], [address] Estimated glomerular filtrat ion rate (GFR) AmericanOrdered By: Russ Zamora on 05-05-2024 Estimated GFR (MDRD) Amer 38 mL/min Low >60 [facility] Comment on above: GFR Calc LDHon 05-05-2024 LDH 126 U/L Normal 87-241 [facility] Comment on above: Order Comment: 1 Performed By: #### L 504.2610, L100.0100, L500.4050 ####[facility] [address] [place], [address] Oncology Visit Reporton 04-20 Oncology Visit Report Normal [facility] CREATININE FINGERSTICKon Creatinine [Mass/Vol] 1.4 mg/dL High 0.70-1.30 [facility] Comment on above: Performed By: #### L 9100.0200 ####[facility] [address] [place], [address] GFR/1.73 sq M.predicted among non-blacks MDRD (S/P/Bld) [Vol rate/Area] 50.0000 mL/min/{1.73_m2} Low >60 [facility] Comment on above: Performed By: #### L 9100.0200 ####[facility] [address] [place], [address] CT Chest AND Abd W/ Contrast on 04-28-2024 CT Chest AND Abd W/ Contrast Normal [facility] Miscellaneous procedureOrder ed By: Russ Zamora on 01-28-2024 Miscellaneous Test See comment [facility] Comment on above: [facility] per ordering physician. Bacteria identified Cx Nom ( Wound)Ordered By: Joaquim Suárez on 12-24-2023 Wound Culture Staphylococcus pseudintermediu [facility] Wound Culture Enterococcus faecalis [facility] Wound Culture Streptococcus pyogenes [facility] Gram stain for investigation of transfusion reactionOrdered By: Joaquim Suárez on 12-24-2023 Microscopic observation Gram stain Nom (Unsp spec) [facility] Absolute lymphocyte countOrd ered By: Russ Zmaora on 11-06-2023 Lymphocytes Auto (Unsp spec) [#/Vol] 0.95 10*3/uL 0.83-4.51 [facility] Addendum DocumentOrdered By: Russ Zamora on 11-06-2023 Serum Immunofixation Comments Comment . [facility] Comment on above: Protein electrophore sis scan will follow via computer,mail, or air carrier maintenance inspector delivery. Albumin Elph [Mass/Vol]Order ed By: Russ Zamora on 11-06-2023 Albumin [Mass/Vol] 3.2 g/dL 2.9-4.4 [facility] Alpha 1 globulin Elph [Mass/ Vol]Ordered By: Russ Zamora on 11-06-2023 Tfnqs-3-Mespgmoea (PLIY) 0.4 g/dL 0.0-0.4 [facility] Nwaag-3-Khavfnuuc (PILY) 1.3 g/dL High 0.4-1.0 [facility] Automated lymphocyte count a s percentage of total leukocytesOrdered By: Russ Zamora on 11-06-2023 Lymphocytes/100 WBC Auto (Unsp spec) 10.5 % 19-41 [facility] Basophil percentageOrdered B y: Russ Zamora on 11-06-2023 Basophils/100 WBC (Bld) 0.6 % 0-1 [facility] Bilirubin [Mass/Vol] 0.30 mg/dL 0.20-1.00 [facility] Comment on above: For patients on eltr ombopag therapy, use of Dimension [place] TBIL is not recommended. Chloride [Moles/Vol] 105 mmol/L 98-107 [facility] Eosinophils/100 WBC (Bld) 2.1 % 0-5 [facility] Glucose [Mass/Vol] 106 mg/dL 74-106 [facility] Comment on above: Fasting Glucose resu lt from 100 to 125 mg/dL suggests IMPAIRED HOMEOSTASIS per A.D.A. criteria. Hemoglobin (Bld) [Mass/Vol] 11.5 g/dL 13.0-16.5 [facility] LDH [Catalytic activity/Vol] 170 U/L 87-241 [facility] Monocytes/100 WBC (Bld) 10.7 % 0-10 [facility] Neutrophils (Bld) [#/Vol] 6.8 10*3/uL 2.0-7.7 [facility] Neutrophils/100 WBC (Bld) 75.2 % 47-70 [facility] Potassium [Moles/Vol] 4.3 mmol/L 3.5-5.1 [facility] Protein [Mass/Vol] 8.2 g/dL 6.4-8.2 [facility] Sodium [Moles/Vol] 135 mmol/L 136-145 [facility] WBC (Bld) [#/Vol] 9.0 10*3/uL 4.4-11.0 [facility] Beta globulin Elph [Mass/Vol ]Ordered By: Russ Zamora on 11-06-2023 Beta-Globulins (PILY) 1.0 g/dL 0.7-1.3 [facility] C-reactive protein measureme nt by high sensitivity methodOrdered By: Russ Zamora on 11-06-2023 C-Reactive Protein Extended Range 22.10 mg/L High 0.0-3.0 [facility] Comment on above: C-Reactive Protein ( CRP) provides useful information for thediagnosis, therapy and monitoring of inflammatory processesand associated diseases. For the evaluation of Relative Riskfor Cardiovascular Disease, a High Sensitivity CRP (HSCRP)should be ordered. C-reactive protein measurement by high sensitivity method 22.10 mg/L High 0.0-3.0 [facility] Comment on above: C-Reactive Protein ( CRP) provides useful information for thediagnosis, therapy and monitoring of inflammatory processesand associated diseases. For the evaluation of Relative Riskfor Cardiovascular Disease, a High Sensitivity CRP (HSCRP)should be ordered. Determination of erythrocyte mean corpuscular volume (MCV)Ordered By: Russ Zamora on 11-06-2023 MCV (RBC) [Entitic vol] 88.0 fL 80-94 [facility] Erythrocyte distribution wid th ratioOrdered By: Russ Zamora on 11-06-2023 Erythrocyte distribution width (RBC) [Ratio] 15.5 % 11.6-14.6 [facility] Erythrocyte distribution wid th standard deviationOrdered By: Russ Zamora on 11-06-2023 Erythrocyte distribution width (RBC) [Entitic vol] 49.5 fL 35.1-43.9 [facility] Erythrocyte sedimentation ra teOrdered By: Russ Zamora on 11-06-2023 ESR (Bld) [Velocity] 21 mm/h High 0-20 [facility] Gamma globulin Elph [Mass/Vo l]Ordered By: Russ Zamora on 11-06-2023 Gamma Globulins (PILY) 1.8 g/dL 0.4-1.8 [facility] Hematocrit Auto (Bld) [Volum e fraction]Ordered By: Russ Zamora on 11-06-2023 Hematocrit (Bld) [Volume fraction] 36.8 % 40-54 [facility] Hemoglobin (Reticulocytes) [ Entitic mass]Ordered By: Russ Zamora on 11-06-2023 Reticulocyte Hemoglobin Equivalent 31.4 pg 30-35 [facility] Hemoglobin in reticulocytes (mass per reticulocyte)Ordered By: Russ Zamora on 11-06-2023 Hemoglobin (Reticulocytes) [Entitic mass] 31.4 pg 30-35 [facility] IgA [Mass/Vol]Ordered By: Flores Zamora on 11-06-2023 Immunoglobulin A 311 mg/dL 61-437 [facility] IgG [Mass/Vol]Ordered By: Flores Zamora on 11-06-2023 Immunoglobulin G 1529 mg/dL 603-1613 [facility] Immature granulocytes/100 WB C Auto (Bld)Ordered By: Russ Zamora on 11-06-2023 Immature granulocytes/100 WBC (Bld) 0.900 % 0.0-0.9 [facility] Comment on above: IG% - Immature Granu locytes (promyelocytes, myelocytes and metamyelocytes) > 1% indicates that a LEFT SHIFT is Present. Immature reticulocyte fracti onOrdered By: Russ Zamora on 11-06-2023 Immature Reticulocyte Fraction 22.10 % High 3.00-15.90 [facility] Immunoglobulin M measurement Ordered By: Russ Zamora on 11-06-2023 Immunoglobulin M 157 mg/dL High 15-143 [facility] Immunoglobulin light chains. kappa [Mass/Vol]Ordered By: Russ Zamora on 11-06-2023 Free [place] Light Chains, Quant 100.3 mg/L High 3.3-19.4 [facility] Immunoglobulin light chains. kappa/Immunoglobulin light chains.lambda (S) [Mass ratio]Ordered By: Russ Zamora on 11-06-2023 Free [place]/Lambda Light Chain Ratio 1.63 0.26-1.65 [facility] Comment on above: Performed at: [facility] [address] [id number] Director: Seb Bertrand PhD, Phone: [phone] Interpretation IEP [Interp]O rdered By: Russ Zamora on 11-06-2023 Immunofixation Screen Comment . [facility] Comment on above: No monoclonality det ected. Interpretation of serum or p lasma protein pattern by immunofixation (narrative resultOrdered By: Russ Zamora on 11-06-2023 Protein Fractions Immunofixation Jose Luis [Interp] Not Observed g/dL Not Observed [facility] Laboratory - Chemistry and C hemistry - challengeOrdered By: Russ Zamora on 11-06-2023 Albumin/Globulin [Mass ratio] 0.6 {ratio} 0.9-2.4 [facility] ALP [Catalytic activity/Vol] 62 U/L 45-117 [facility] ALT [Catalytic activity/Vol] 17 U/L 16-61 [facility] CO2 [Moles/Vol] 24.0 mmol/L 21.0-32.0 [facility] Urea nitrogen/Creatinine [Mass ratio] 21.9 mg/mg 10-20 [facility] Laboratory - Hematology and Cell countsOrdered By: Russ Zamora on 11-06-2023 MCH (RBC) [Entitic mass] 27.5 pg 27.0-32.0 [facility] MCHC (RBC) [Mass/Vol] 31.3 g/dL 32-36 [facility] Nucleated RBC/100 WBC (Bld) [Ratio] 0 % 0-5 [facility] Platelet mean volume (Bld) [Entitic vol] 9.1 fL 6.2-12.0 [facility] Platelets (Bld) [#/Vol] 270 10*3/uL 150-450 [facility] Lambda free light chain kingsley urementOrdered By: Russ Zamora on 11-06-2023 Free Lambda Light Chains, Quant 61.5 mg/L High 5.7-26.3 [facility] No Panel InformationOrdered By: Russ Zamora on 11-06-2023 Addendum Document Comment . [facility] Comment on above: Protein electrophore sis scan will follow via computer,mail, or air carrier maintenance inspector delivery. Estimated Creatinine Clearance Calc 31.12 ml/min [facility] Estimated GFR (MDRD) Amer 43 mL/min >60 [facility] Comment on above: GFR Calc Estimated GFR (MDRD) Non-Af Amer 35 mL/min >60 [facility] Comment on above: Non- GFR Calc Protein Fractions Immunofixa tion Jose Luis [Interp]Ordered By: Russ Zamora on 11-06-2023 M-Arash (PILY) Not Observed g/dL Not Observed [facility] RBC Auto (Bld) [#/Vol]Ordere d By: Russ Zamora on 11-06-2023 RBC (Bld) [#/Vol] 4.18 10*6/uL 4.6-6.2 [facility] Reticulocytes Auto (Bld) [#/ Vol]Ordered By: Russ Zamora on 11-06-2023 Reticulocyte Count 2.12 % High 0.5-1.5 [facility] Reticulocytes/100 RBC (Bld) 2.12 % High 0.5-1.5 [facility] Serum albumin/globulin ratio Ordered By: Russ Zamora on 11-06-2023 Albumin/Globulin (PILY) 0.8 0.7-1.7 [facility] Serum [id number] measu rement by electrophoresisOrdered By: Russ Zamora on 11-06-2023 Alpha 1 globulin Elph [Mass/Vol] 0.4 g/dL 0.0-0.4 [facility] Alpha 1 globulin Elph [Mass/Vol] 1.3 g/dL High 0.4-1.0 [facility] Serum globulin measurement ( mass/volume)Ordered By: Russ Zamora on 11-06-2023 Globulin (S) [Mass/Vol] 4.4 g/dL 2.2-3.9 [facility] Serum immunoglobulin kappa l ight chains/immunoglobulin lambda light chains mass ratioOrdered By: Russ Zamora on 11-06-2023 Immunoglobulin light chains.kappa/Immunoglobul in light chains.lambda (S) [Mass ratio] 1.63 0.26-1.65 [facility] Comment on above: Performed at: [place] [id number] Director: Seb Bertrand PhD, Phone: [phone] Serum or plasma IgA measurem ent (mass/volume)Ordered By: Russ Zamora on 11-06-2023 IgA [Mass/Vol] 311 mg/dL 61-437 [facility] Serum or plasma IgG measurem ent (mass/volume)Ordered By: Russ Zamora on 11-06-2023 IgG [Mass/Vol] 1529 mg/dL 603-1613 [facility] Serum or plasma beta globuli n measurement by electrophoresis (mass/volume)Ordered By: Russ Zamora on 11-06-2023 Beta globulin Elph [Mass/Vol] 1.0 g/dL 0.7-1.3 [facility] Serum or plasma calcium kingsley urement (mass/volume)Ordered By: Russ Zamora on 11-06-2023 Calcium [Mass/Vol] 9.0 mg/dL 8.5-10.1 [facility] Serum or plasma creatinine m easurement (mass/volume)Ordered By: Russ Zamora on 11-06-2023 Creatinine [Mass/Vol] 1.96 mg/dL 0.70-1.30 [facility] Comment on above: The validity of the calculated GFR & GFRAA in patients over 70 years has not been determined. Clinical correlation is essential. Serum or plasma gamma globul in measurement by electrophoresis (mass/volume)Ordered By: Russ Zamora on 11-06-2023 Gamma globulin Elph [Mass/Vol] 1.8 g/dL 0.4-1.8 [facility] Serum or plasma immunoelectr ophoresis interpretation (nominal result)Ordered By: Russ Zamora on 11-06-2023 Interpretation IEP [Interp] Comment . [facility] Comment on above: No monoclonality det ected. Serum or plasma immunoglobul in kappa light chains measurement (mass/volume)Ordered By: Russ Walls on 11-06-2023 Immunoglobulin light chains.kappa [Mass/Vol] 100.3 mg/L High 3.3-19.4 [facility] Serum or plasma urea nitroge n measurement (mass/volume)Ordered By: Russ Walls on 11-06-2023 Urea nitrogen [Mass/Vol] 43 mg/dL 7-18 [facility] Serum or plasma uric acid me asurement (mass/volume)Ordered By: [facility] on 11-06-2023 Urate [Mass/Vol] 6.6 mg/dL 3.5-7.2 [facility] Comment on above: The drugs N-Acetylcy steine and Metamizole may falsely depress this assay. Thin prep Papanicolaou smear with manual screeningOrdered By: Russ Zamora on 11-06-2023 Thin prep Papanicolaou smear with manual screening 3.2 g/dL 3.2-5.0 [facility] Thin prep Papanicolaou smear with manual screening 15 U/L 15-37 [facility] Thin prep Papanicolaou smear with manual screening 6 5-15 [facility] Thin prep Papanicolaou smear with manual screening 0.8 0.7-1.7 [facility] Total protein bloodOrdered B y: Russ Zamora on 11-06-2023 Protein [Mass/Vol] 7.6 g/dL 6.0-8.5 [facility] Basophil percentageOrdered B y: Russ Zamora on 10-12-2023 Creatinine [Mass/Vol] 1.5 mg/dL 0.70-1.30 [facility] Laboratory - Chemistry and C hemistry - challengeOrdered By: Russ Zamora on 10-12-2023 GFR/1.73 sq M.predicted among non-blacks MDRD (S/P/Bld) [Vol rate/Area] 49.0000 mL/min/{1.73_m2} >60 [facility] Absolute lymphocyte countOrd ered By: Leslie Arriaga on 07-26-2023 Lymphocytes Auto (Unsp spec) [#/Vol] 1.22 10*3/uL 0.83-4.51 [facility] Assessment of wrist artery p atency prior to arterial punctureOrdered By: Lorie Mart on 07-26-2023 Arterial patency Wrist artery --pre arterial puncture Positive [facility] Base excessOrdered By: Obed Mart on 07-26-2023 Base excess Calc (BldV) [Moles/Vol] -1 mmol/L -2-2 [facility] Basophil percentageOrdered B y: Leslie Arriaga on 07-26-2023 Basophils/100 WBC (Bld) 0.7 % 0-1 [facility] Chloride [Moles/Vol] 105 mmol/L 98-107 [facility] Eosinophils/100 WBC (Bld) 1.7 % 0-5 [facility] Glucose [Mass/Vol] 99 mg/dL 74-106 [facility] Neutrophils (Bld) [#/Vol] 9.0 10*3/uL 2.0-7.7 [facility] Neutrophils/100 WBC (Bld) 76.3 % 47-70 [facility] Potassium [Moles/Vol] 4.8 mmol/L 3.5-5.1 [facility] Sodium [Moles/Vol] 135 mmol/L 136-145 [facility] WBC (Bld) [#/Vol] 11.7 10*3/uL 4.4-11.0 [facility] Basophil percentageOrdered B y: Lorie Mart on 07-26-2023 Basophil percentage 24.8 mmol/L 22-26 [facility] Basophils/100 WBC (Bld) 95 % 95-99 [facility] Blood erythrocytes count (nu mber/volume)Ordered By: Leslie Arriaga on 07-26-2023 RBC (Bld) [#/Vol] 4.50 10*6/uL 4.6-6.2 [facility] Blood hemoglobin measurement (mass/volume)Ordered By: Leslie Arriaga on 07-26-2023 Hemoglobin (Bld) [Mass/Vol] 12.5 g/dL 13.0-16.5 [facility] Blood lymphocytes/100 leukoc ytesOrdered By: Leslie Arriaga on 07-26-2023 Lymphocytes/100 WBC (Bld) 10.4 % 19-41 [facility] Blood monocytes/100 leukocyt esOrdered By: Leslie Arriaga on 07-26-2023 Monocytes/100 WBC (Bld) 10.2 % 0-10 [facility] Blood platelet mean volumeOr dered By: Leslie Arriaga on 07-26-2023 Platelet mean volume (Bld) [Entitic vol] 10.6 fL 6.2-12.0 [facility] CO2 (BldA) [Partial pressure ]Ordered By: Lorie Mart on 07-26-2023 CO2 (Bld) [Partial pressure] 42.6 mm[Hg] 35-45 [facility] Determination of erythrocyte mean corpuscular volume (MCV)Ordered By: Leslie Arriaga on 07-26-2023 MCV (RBC) [Entitic vol] 87.6 fL 80-94 [facility] Hematocrit Auto (Bld) [Volum e fraction]Ordered By: Leslie Arriaga on 07-26-2023 Hematocrit (Bld) [Volume fraction] 39.4 % 40-54 [facility] Laboratory - Chemistry and C hemistry - challengeOrdered By: Leslie Arriaga on 07-26-2023 CO2 [Moles/Vol] 28.0 mmol/L 21.0-32.0 [facility] Natriuretic peptide B (Bld) [Mass/Vol] 233.5 pg/mL 0-100 [facility] Urea nitrogen/Creatinine [Mass ratio] 25.4 mg/mg 10-20 [facility] Laboratory - Hematology and Cell countsOrdered By: Leslie Arriaga on 07-26-2023 Erythrocyte distribution width (RBC) [Entitic vol] 52.0 fL 35.1-43.9 [facility] Erythrocyte distribution width (RBC) [Ratio] 16.3 % 11.6-14.6 [facility] Immature granulocytes/100 WBC (Bld) 0.700 % 0.0-0.9 [facility] Comment on above: IG% - Immature Granu locytes (promyelocytes, myelocytes and metamyelocytes) > 1% indicates that a LEFT SHIFT is Present. MCH (RBC) [Entitic mass] 27.8 pg 27.0-32.0 [facility] Nucleated RBC/100 WBC (Bld) [Ratio] 0 % 0-5 [facility] MCHC Auto (RBC) [Mass/Vol]Or dered By: Leslie Arriaga on 07-26-2023 MCHC (RBC) [Mass/Vol] 31.7 g/dL 32-36 [facility] No Panel InformationOrdered By: Leslie Arriaga on 07-26-2023 Estimated GFR (MDRD) Amer 40 mL/min >60 [facility] Comment on above: GFR Calc Estimated GFR (MDRD) Non-Af Amer 33 mL/min >60 [facility] Comment on above: Non- GFR Calc No Panel InformationOrdered By: Lorie Mart on 07-26-2023 Blood Gas Sample Site R Radial [facility] Blood Gas Specimen Type ART [facility] Blood Gas Total CO2 26 mmol/L [facility] Blood Gas Vent Mode Not entered [facility] Oxygen Delivery Device [id number] [facility] Oxygen (BldA) [Partial press ure]Ordered By: Lorie Mart on 07-26-2023 Oxygen (Bld) [Partial pressure] 77 mmHG 75-100 [facility] Platelets bldOrdered By: Markus Arriaga on 07-26-2023 Platelets (Bld) [#/Vol] 264 10*3/uL 150-450 [facility] Serum or plasma calcium kingsley urement (mass/volume)Ordered By: Leslie Arriaga on 07-26-2023 Calcium [Mass/Vol] 9.3 mg/dL 8.5-10.1 [facility] Serum or plasma creatinine m easurement (mass/volume)Ordered By: Leslie Arriaga on 07-26-2023 Creatinine [Mass/Vol] 2.09 mg/dL 0.70-1.30 [facility] Comment on above: The validity of the calculated GFR & GFRAA in patients over 70 years has not been determined. Clinical correlation is essential. Serum or plasma urea nitroge n measurement (mass/volume)Ordered By: Leslie Arriaga on 07-26-2023 Urea nitrogen [Mass/Vol] 53 mg/dL 7-18 [facility] Thin prep Papanicolaou smear with manual screeningOrdered By: Leslie Arriaga on 07-26-2023 Thin prep Papanicolaou smear with manual screening 2 5-15 [facility] pH measurementOrdered By: Pj Mart on 07-26-2023 pH (Unsp spec) 7.37 [pH] 7.35-7.45 [facility] Anaerobic cultureOrdered By: Joaquim Suárez on 06-22-2023 Bacteria identified Anaer cx Nom (Unsp spec) No anaerobic bacteria isolated. [facility] Bacteria identified Cx Nom ( Wound)Ordered By: Joaquim Suárez on 06-22-2023 Wound Culture Staphylococcus epidermidis [facility] Wound Culture Corynebacterium jeikeium [facility] Fungus cultureOrdered By: Flores Suárez on 06-22-2023 Fungus identified Cx Nom (Unsp spec) [facility] Gram stain for investigation of transfusion reactionOrdered By: Joaquim Suárez on 06-22-2023 Microscopic observation Gram stain Nom (Unsp spec) [facility] Glucose Glucometer (BldC) [M ass/Vol]Ordered By: Joaquim Suárez on 06-08-2023 Glucose [Mass/Vol] 72 mg/dL 74-106 [facility] Comment on above: MANAGEMENT OF PATIEN T CARE PER NURSING PROTOCOL Absolute lymphocyte countOrd ered By: Russ Zamora on 04-17-2023 Lymphocytes Auto (Unsp spec) [#/Vol] 1.02 10*3/uL 0.83-4.51 [facility] Basophil percentageOrdered B y: Russ Zamora on 04-17-2023 Basophils/100 WBC (Bld) 0.5 % 0-1 [facility] Bilirubin [Mass/Vol] 0.30 mg/dL 0.20-1.00 [facility] Comment on above: For patients on eltr ombopag therapy, use of Dimension [place] TBIL is not recommended. Chloride [Moles/Vol] 102 mmol/L 98-107 [facility] Eosinophils/100 WBC (Bld) 2.6 % 0-5 [facility] Glucose [Mass/Vol] 209 mg/dL 74-106 [facility] Comment on above: Glucose result great er than or equal to 200 mg/dLsuggests DIABETES MELLITUS per A.D.A. criteria. LDH [Catalytic activity/Vol] 152 U/L 87-241 [facility] Neutrophils (Bld) [#/Vol] 6.0 10*3/uL 2.0-7.7 [facility] Neutrophils/100 WBC (Bld) 74.2 % 47-70 [facility] Potassium [Moles/Vol] 4.3 mmol/L 3.5-5.1 [facility] Protein [Mass/Vol] 7.8 g/dL 6.4-8.2 [facility] Sodium [Moles/Vol] 136 mmol/L 136-145 [facility] WBC (Bld) [#/Vol] 8.1 10*3/uL 4.4-11.0 [facility] Blood erythrocytes count (nu mber/volume)Ordered By: Russ Zamora on 04-17-2023 RBC (Bld) [#/Vol] 4.45 10*6/uL 4.6-6.2 [facility] Blood hemoglobin measurement (mass/volume)Ordered By: Russ Zamora on 04-17-2023 Hemoglobin (Bld) [Mass/Vol] 12.3 g/dL 13.0-16.5 [facility] Blood lymphocytes/100 leukoc ytesOrdered By: Russ Zamora on 04-17-2023 Lymphocytes/100 WBC (Bld) 12.6 % 19-41 [facility] Blood monocytes/100 leukocyt esOrdered By: Russ Zamora on 04-17-2023 Monocytes/100 WBC (Bld) 9.4 % 0-10 [facility] Blood platelet mean volumeOr dered By: Russ Zamora on 04-17-2023 Platelet mean volume (Bld) [Entitic vol] 9.5 fL 6.2-12.0 [facility] Determination of erythrocyte mean corpuscular volume (MCV)Ordered By: Russ Zamora on 04-17-2023 MCV (RBC) [Entitic vol] 89.9 fL 80-94 [facility] Hematocrit Auto (Bld) [Volum e fraction]Ordered By: Russ Zamora on 04-17-2023 Hematocrit (Bld) [Volume fraction] 40.0 % 40-54 [facility] Laboratory - Chemistry and C hemistry - challengeOrdered By: Russ Zamora on 04-17-2023 ALP [Catalytic activity/Vol] 58 U/L 45-117 [facility] ALT [Catalytic activity/Vol] 21 U/L 16-61 [facility] CO2 [Moles/Vol] 27.0 mmol/L 21.0-32.0 [facility] Globulin (S) [Mass/Vol] 4.5 g/dL 2.2-4.2 [facility] Urea nitrogen/Creatinine [Mass ratio] 20.3 mg/mg 10-20 [facility] Laboratory - Hematology and Cell countsOrdered By: Russ Zamora on 04-17-2023 Erythrocyte distribution width (RBC) [Entitic vol] 54.4 fL 35.1-43.9 [facility] Erythrocyte distribution width (RBC) [Ratio] 16.5 % 11.6-14.6 [facility] Immature granulocytes/100 WBC (Bld) 0.700 % 0.0-0.9 [facility] Comment on above: IG% - Immature Granu locytes (promyelocytes, myelocytes and metamyelocytes) > 1% indicates that a LEFT SHIFT is Present. MCH (RBC) [Entitic mass] 27.6 pg 27.0-32.0 [facility] Nucleated RBC/100 WBC (Bld) [Ratio] 0 % 0-5 [facility] MCHC Auto (RBC) [Mass/Vol]Or dered By: Russ Zamora on 04-17-2023 MCHC (RBC) [Mass/Vol] 30.8 g/dL 32-36 [facility] No Panel InformationOrdered By: Russ Zamora on 04-17-2023 Estimated Creatinine Clearance Calc 29.38 ml/min [facility] Estimated GFR (MDRD) Amer 45 mL/min >60 [facility] Comment on above: GFR Calc Estimated GFR (MDRD) Non-Af Amer 37 mL/min >60 [facility] Comment on above: Non- GFR Calc Platelets bldOrdered By: Frantz Zamora on 04-17-2023 Platelets (Bld) [#/Vol] 214 10*3/uL 150-450 [facility] Serum or plasma albumin kingsley urement (mass/volume)Ordered By: Russ Zamora on 04-17-2023 Albumin [Mass/Vol] 3.3 g/dL 3.2-5.0 [facility] Serum or plasma albumin/glob ulin mass ratioOrdered By: Russ Zamora on 04-17-2023 Albumin/Globulin [Mass ratio] 0.7 {ratio} 0.9-2.4 [facility] Serum or plasma calcium kingsley urement (mass/volume)Ordered By: Russ Zamora on 04-17-2023 Calcium [Mass/Vol] 9.1 mg/dL 8.5-10.1 [facility] Serum or plasma creatinine m easurement (mass/volume)Ordered By: Russ Zamora on 04-17-2023 Creatinine [Mass/Vol] 1.87 mg/dL 0.70-1.30 [facility] Comment on above: The validity of the calculated GFR & GFRAA in patients over 70 years has not been determined. Clinical correlation is essential. Serum or plasma urea nitroge n measurement (mass/volume)Ordered By: Russ Zamora on 04-17-2023 Urea nitrogen [Mass/Vol] 38 mg/dL 7-18 [facility] Thin prep Papanicolaou smear with manual screeningOrdered By: Russ Zamora on 04-17-2023 Thin prep Papanicolaou smear with manual screening 16 U/L 15-37 [facility] Thin prep Papanicolaou smear with manual screening 7 5-15 [facility] Basophil percentageOrdered B y: Russ Zamora on 04-10-2023 Creatinine [Mass/Vol] 1.1 mg/dL 0.70-1.30 [facility] No Panel InformationOrdered By: Russ Zamora on 04-10-2023 Bedside Estimated GFR (eGFR) > 60.0000 mL/min >60 [facility] Anaerobic cultureOrdered By: Bonny Glynn on 01-13-2023 Bacteria identified Anaer cx Nom (Unsp spec) No anaerobic bacteria isolated. [facility] Bacteria identified Cx Nom ( Wound)Ordered By: Bonny Glynn on 01-11-2023 Wound Culture Staphylococcus pseudintermediu [facility] Gram stain for investigation of transfusion reactionOrdered By: Bonny Glynn on 01-09-2023 Microscopic observation Gram stain Nom (Unsp spec) [facility] Anaerobic cultureOrdered By: Bonny Glynn on 01-08-2023 Bacteria identified Anaer cx Nom (Unsp spec) No anaerobic bacteria isolated. [facility] Bacteria identified Cx Nom ( Wound)Ordered By: Bonny Glynn on 01-08-2023 Wound Culture Staphylococcus pseudintermediu [facility] Gram stain for investigation of transfusion reactionOrdered By: Bonny Glynn on 01-08-2023 Microscopic observation Gram stain Nom (Unsp spec) [facility] Laboratory - Microbiology an d Antimicrobial susceptibilityOrdered By: Dr. Ochoa on 01-05-2023 Bacteria identified Cx Nom (Bld) No growth in 5 days. [facility] Culture, urineOrdered By: Dr Marianna Ochoa on 01-02-2023 Bacteria identified Cx Nom (U) Culture exhibits no growth. [facility] Influenza virus A and B and SARS-CoV-2 (COVID-19) Ag panel - Upper respiratory specimOrdered By: Dr. Ochoa on 12-31-2022 SARS-CoV-2 & FLU Antigen (Rapid) Influenzae A [facility] Absolute lymphocyte countOrd ered By: Dr. Ochoa on 12-30-2022 Lymphocytes Auto (Unsp spec) [#/Vol] 0.68 10*3/uL 0.83-4.51 [facility] Basophil percentageOrdered B y: Dr. Ochoa on 12-30-2022 Basophil percentage 0-5 SEEN /hpf 0-5 [facility] Basophils/100 WBC (Bld) 0.5 % 0-1 [facility] Bilirubin [Mass/Vol] 0.50 mg/dL 0.20-1.00 [facility] Comment on above: For patients on eltr ombopag therapy, use of Dimension [place] TBIL is not recommended. Chloride [Moles/Vol] 102 mmol/L 98-107 [facility] Eosinophils/100 WBC (Bld) 0.2 % 0-5 [facility] Glucose [Mass/Vol] 119 mg/dL 74-106 [facility] Comment on above: Fasting Glucose resu lt from 100 to 125 mg/dL suggests IMPAIRED HOMEOSTASIS per A.D.A. criteria. Lactate [Moles/Vol] 1.4 mmol/L 0.4-2.0 [facility] Neutrophils (Bld) [#/Vol] 8.8 10*3/uL 2.0-7.7 [facility] Neutrophils/100 WBC (Bld) 83.3 % 47-70 [facility] Potassium [Moles/Vol] 5.2 mmol/L 3.5-5.1 [facility] Protein [Mass/Vol] 8.2 g/dL 6.4-8.2 [facility] Sodium [Moles/Vol] 134 mmol/L 136-145 [facility] WBC (Bld) [#/Vol] 10.6 10*3/uL 4.4-11.0 [facility] Bilirubin Test strip Ql (U)O rdered By: Dr. Ochoa on 12-30-2022 Bilirubin Ql (U) Negative Negative [facility] Blood erythrocytes count (nu mber/volume)Ordered By: Dr. Ochoa on 12-30-2022 RBC (Bld) [#/Vol] 4.36 10*6/uL 4.6-6.2 [facility] Blood hemoglobin measurement (mass/volume)Ordered By: Dr. Ochoa on 12-30-2022 Hemoglobin (Bld) [Mass/Vol] 12.1 g/dL 13.0-16.5 [facility] Blood lymphocytes/100 leukoc ytesOrdered By: Dr. Ochoa on 12-30-2022 Lymphocytes/100 WBC (Bld) 6.4 % 19-41 [facility] Blood monocytes/100 leukocyt esOrdered By: Dr. Ochoa on 12-30-2022 Monocytes/100 WBC (Bld) 9.1 % 0-10 [facility] Blood platelet mean volumeOr dered By: Dr. Ochoa on 12-30-2022 Platelet mean volume (Bld) [Entitic vol] 10.2 fL 6.2-12.0 [facility] Culture, urineOrdered By: Chino Ochoa on 12-30-2022 Bacteria identified Cx Nom (U) Culture exhibits no growth. [facility] Determination of erythrocyte mean corpuscular volume (MCV)Ordered By: Dr. Ochoa on 12-30-2022 MCV (RBC) [Entitic vol] 87.2 fL 80-94 [facility] Hematocrit Auto (Bld) [Volum e fraction]Ordered By: Dr. Ochoa on 12-30-2022 Hematocrit (Bld) [Volume fraction] 38.0 % 40-54 [facility] INR in Blood by Coagulation assayOrdered By: Dr. Ochoa on 12-30-2022 INR Coag (Bld) [Relative time] 1.3 {INR} [facility] Influenza virus A and B and SARS-CoV-2 (COVID-19) Ag panel - Upper respiratory specimOrdered By: Chris Ochoa on 12-30-2022 SARS-CoV-2 & FLU Antigen (Rapid) Influenzae A [facility] Ketones Test strip Ql (U)Ord ered By: Dr. Ochoa on 12-30-2022 Ketones Ql (U) Negative Negative [facility] Laboratory - Chemistry and C hemistry - challengeOrdered By: Dr. Ochoa on 12-30-2022 ALP [Catalytic activity/Vol] 53 U/L 45-117 [facility] ALT [Catalytic activity/Vol] 22 U/L 16-61 [facility] CO2 [Moles/Vol] 25.0 mmol/L 21.0-32.0 [facility] Globulin (S) [Mass/Vol] 4.7 g/dL 2.2-4.2 [facility] Urea nitrogen/Creatinine [Mass ratio] 22.0 mg/mg 10-20 [facility] Laboratory - CoagulationOrde red By: Dr. Ochoa on 12-30-2022 aPTT Coag (Bld) [Time] 38.9 s 24.1-36.2 [facility] PT Coag (PPP) [Time] 15.8 s 11.7-14.9 [facility] Laboratory - Hematology and Cell countsOrdered By: Dr. Ochoa on 12-30-2022 Erythrocyte distribution width (RBC) [Entitic vol] 50.5 fL 35.1-43.9 [facility] Erythrocyte distribution width (RBC) [Ratio] 15.9 % 11.6-14.6 [facility] Immature granulocytes/100 WBC (Bld) 0.500 % 0.0-0.9 [facility] Comment on above: IG% - Immature Granu locytes (promyelocytes, myelocytes and metamyelocytes) > 1% indicates that a LEFT SHIFT is Present. MCH (RBC) [Entitic mass] 27.8 pg 27.0-32.0 [facility] Nucleated RBC/100 WBC (Bld) [Ratio] 0 % 0-5 [facility] Laboratory - Microbiology an d Antimicrobial susceptibilityOrdered By: Chris Ochoa on 12-30-2022 Bacteria identified Cx Nom (Bld) No growth in 5 days. [facility] MCHC Auto (RBC) [Mass/Vol]Or dered By: Dr. Ochoa on 12-30-2022 MCHC (RBC) [Mass/Vol] 31.8 g/dL 32-36 [facility] Mucus LM Ql (Urine sed)Order ed By: Dr. Ochoa on 12-30-2022 Mucus Ql (Urine sed) 0 SEEN /hpf [facility] Nitrite Test strip Ql (U)Ord ered By: Dr. Ochoa on 12-30-2022 Nitrite Ql (U) Negative Negative [facility] No Panel InformationOrdered By: Dr. Ochoa on 12-30-2022 Estimated Creatinine Clearance Calc 27.91 ml/min [facility] Estimated GFR (MDRD) Amer 42 mL/min >60 [facility] Comment on above: GFR Calc Estimated GFR (MDRD) Non-Af Amer 35 mL/min >60 [facility] Comment on above: Non- GFR Calc Platelets bldOrdered By: Dr. Ochoa on 12-30-2022 Platelets (Bld) [#/Vol] 210 10*3/uL 150-450 [facility] Protein Test strip Ql (U)Ord ered By: Dr. Ochoa on 12-30-2022 Protein Ql (U) 100 mg/dl Negative [facility] Serum or plasma albumin [place] urement (mass/volume)Ordered By: Dr. Ochoa on 12-30-2022 Albumin [Mass/Vol] 3.5 g/dL 3.2-5.0 [facility] Serum or plasma albumin/glob ulin mass ratioOrdered By: Dr. Ochoa on 12-30-2022 Albumin/Globulin [Mass ratio] 0.7 {ratio} 0.9-2.4 [facility] Serum or plasma calcium kings[place] urement (mass/volume)Ordered By: Dr. Ochoa on 12-30-2022 Calcium [Mass/Vol] 9.2 mg/dL 8.5-10.1 [facility] Serum or plasma creatinine m easurement (mass/volume)Ordered By: Dr. Ochoa on 12-30-2022 Creatinine [Mass/Vol] 2.00 mg/dL 0.70-1.30 [facility] Comment on above: The validity of the calculated GFR & GFRAA in patients over 70 years has not been determined. Clinical correlation is essential. Serum or plasma urea nitroge n measurement (mass/volume)Ordered By: Dr. Ochoa on 12-30-2022 Urea nitrogen [Mass/Vol] 44 mg/dL 7-18 [facility] Squamous epithelial cells de tection in urine sediment by light microscopyOrdered By: Dr. Ochoa on 12-30-2022 Epithelial cells.squamous LM Ql (Urine sed) 0 SEEN /hpf 0-5 [facility] Thin prep Papanicolaou smear with manual screeningOrdered By: Dr. Ochoa on 12-30-2022 Thin prep Papanicolaou smear with manual screening 22 U/L 15-37 [facility] Thin prep Papanicolaou smear with manual screening 7 5-15 [facility] Urine blood detectionOrdered By: Dr. Ochoa on 12-30-2022 RBC Ql (U) 25 /ul Negative [facility] RBC Ql (U) 0 SEEN /hpf 0-5 [facility] Urine clarityOrdered By: Dr. Ochoa on 12-30-2022 Clarity (U) Clear Clear [facility] Urine color determinationOrd ered By: Dr. Ochoa on 12-30-2022 Color (U) Yellow Yellow [facility] Urine glucose detectionOrder ed By: Dr. Ochoa on 12-30-2022 Glucose Ql (U) Normal mg/dl Normal [facility] Urine leukocyte esterase det ection by dipstickOrdered By: Dr. Ochoa on 12-30-2022 Leukocyte esterase Test strip Ql (U) 25 /ul Negative [facility] Urine pHOrdered By: Dr. Amy chowdhury on 12-30-2022 pH (U) 7.0 [pH] 5.0 - 8.0 [facility] Urine sediment bacteria coun t by microscopy (number/high power field)Ordered By: Dr. Ochoa on 12-30-2022 Bacteria LM.HPF (Urine sed) [#/Area] 0 /[HPF] None Seen [facility] Urine specific gravity measu rementOrdered By: Dr. Ochoa on 12-30-2022 Specific gravity (U) [Rel density] 1.005 1.002-1.030 [facility] Urobilinogen Auto test strip Ql (U)Ordered By: Dr. Ochoa on 12-30-2022 Urobilinogen Ql (U) Normal mg/dl Normal [facility] Absolute lymphocyte countOrd ered By: Dr. Zamora on 10-16-2022 Lymphocytes Auto (Unsp spec) [#/Vol] 1.25 10*3/uL 0.83-4.51 [facility] Basophil percentageOrdered B y: Dr. Zamora on 10-16-2022 Basophils/100 WBC (Bld) 0.6 % 0-1 [facility] Bilirubin [Mass/Vol] 0.30 mg/dL 0.20-1.00 [facility] Comment on above: For patients on eltr ombopag therapy, use of Dimension [place] TBIL is not recommended. Chloride [Moles/Vol] 106 mmol/L 98-107 [facility] Eosinophils/100 WBC (Bld) 1.4 % 0-5 [facility] Glucose [Mass/Vol] 225 mg/dL 74-106 [facility] Comment on above: Glucose result great er than or equal to 200 mg/dLsuggests DIABETES MELLITUS per A.D.A. criteria. LDH [Catalytic activity/Vol] 135 U/L 87-241 [facility] Neutrophils (Bld) [#/Vol] 5.1 10*3/uL 2.0-7.7 [facility] Neutrophils/100 WBC (Bld) 70.2 % 47-70 [facility] Potassium [Moles/Vol] 4.5 mmol/L 3.5-5.1 [facility] Protein [Mass/Vol] 7.8 g/dL 6.4-8.2 [facility] Sodium [Moles/Vol] 139 mmol/L 136-145 [facility] WBC (Bld) [#/Vol] 7.3 10*3/uL 4.4-11.0 [facility] Blood erythrocytes count (nu mber/volume)Ordered By: Dr. Zamora on 10-16-2022 RBC (Bld) [#/Vol] 3.94 10*6/uL 4.6-6.2 [facility] Blood hemoglobin measurement (mass/volume)Ordered By: Dr. Zamora on 10-16-2022 Hemoglobin (Bld) [Mass/Vol] 11.5 g/dL 13.0-16.5 [facility] Blood lymphocytes/100 leukoc ytesOrdered By: Dr. Zamora on 10-16-2022 Lymphocytes/100 WBC (Bld) 17.2 % 19-41 [facility] Blood monocytes/100 leukocyt esOrdered By: Dr. Zamora on 10-16-2022 Monocytes/100 WBC (Bld) 9.8 % 0-10 [facility] Blood platelet mean volumeOr dered By: Dr. Zamora on 10-16-2022 Platelet mean volume (Bld) [Entitic vol] 9.9 fL 6.2-12.0 [facility] Determination of erythrocyte mean corpuscular volume (MCV)Ordered By: Dr. Zamora on 10-16-2022 MCV (RBC) [Entitic vol] 91.1 fL 80-94 [facility] Hematocrit Auto (Bld) [Volum e fraction]Ordered By: Dr. Zamora on 10-16-2022 Hematocrit (Bld) [Volume fraction] 35.9 % 40-54 [facility] Laboratory - Chemistry and C hemistry - challengeOrdered By: Dr. Zamora on 10-16-2022 ALP [Catalytic activity/Vol] 52 U/L 45-117 [facility] ALT [Catalytic activity/Vol] 19 U/L 16-61 [facility] CO2 [Moles/Vol] 26.0 mmol/L 21.0-32.0 [facility] Globulin (S) [Mass/Vol] 4.5 g/dL 2.2-4.2 [facility] Urea nitrogen/Creatinine [Mass ratio] 17.5 mg/mg 10-20 [facility] Laboratory - Hematology and Cell countsOrdered By: Dr. Zamora on 10-16-2022 Erythrocyte distribution width (RBC) [Entitic vol] 50.4 fL 35.1-43.9 [facility] Erythrocyte distribution width (RBC) [Ratio] 15.2 % 11.6-14.6 [facility] Immature granulocytes/100 WBC (Bld) 0.800 % 0.0-0.9 [facility] Comment on above: IG% - Immature Granu locytes (promyelocytes, myelocytes and metamyelocytes) > 1% indicates that a LEFT SHIFT is Present. MCH (RBC) [Entitic mass] 29.2 pg 27.0-32.0 [facility] Nucleated RBC/100 WBC (Bld) [Ratio] 0 % 0-5 [facility] MCHC Auto (RBC) [Mass/Vol]Or dered By: Dr. Zamora on 10-16-2022 MCHC (RBC) [Mass/Vol] 32.0 g/dL 32-36 [facility] No Panel InformationOrdered By: Dr. Zamora on 10-16-2022 Estimated GFR (MDRD) Amer 45 mL/min >60 [facility] Comment on above: GFR Calc Estimated GFR (MDRD) Non-Af Amer 37 mL/min >60 [facility] Comment on above: Non- GFR Calc Platelets bldOrdered By: Dr. Zamora on 10-16-2022 Platelets (Bld) [#/Vol] 193 10*3/uL 150-450 [facility] Serum or plasma albumin [place] urement (mass/volume)Ordered By: Dr. Zamora on 10-16-2022 Albumin [Mass/Vol] 3.3 g/dL 3.2-5.0 [facility] Serum or plasma albumin/glob ulin mass ratioOrdered By: Dr. Zamora on 10-16-2022 Albumin/Globulin [Mass ratio] 0.7 {ratio} 0.9-2.4 [facility] Serum or plasma calcium [place] urement (mass/volume)Ordered By: Dr. Zamora on 10-16-2022 Calcium [Mass/Vol] 9.3 mg/dL 8.5-10.1 [facility] Serum or plasma creatinine m easurement (mass/volume)Ordered By: Dr. Zamora on 10-16-2022 Creatinine [Mass/Vol] 1.89 mg/dL 0.70-1.30 [facility] Comment on above: The validity of the calculated GFR & GFRAA in patients over 70 years has not been determined. Clinical correlation is essential. Serum or plasma urea nitroge n measurement (mass/volume)Ordered By: Dr. Zamora on 10-16-2022 Urea nitrogen [Mass/Vol] 33 mg/dL 7-18 [facility] Thin prep Papanicolaou smear with manual screeningOrdered By: Dr. Zamora on 10-16-2022 Thin prep Papanicolaou smear with manual screening 17 U/L 15-37 [facility] Thin prep Papanicolaou smear with manual screening 7 5-15 [facility] Basophil percentageOrdered B y: Dr. Zamora on 10-09-2022 Creatinine [Mass/Vol] 1.4 mg/dL 0.70-1.30 [facility] Laboratory - Chemistry and C hemistry - challengeOrdered By: Dr. Zamora on 10-09-2022 GFR/1.73 sq M.predicted among non-blacks MDRD (S/P/Bld) [Vol rate/Area] 52.0000 mL/min/{1.73_m2} >60 [facility] Culture, urineOrdered By: St gillian Glynn on 10-04-2022 Bacteria identified Cx Nom (U) Staphylococcus epidermidis [facility] Bacteria identified Cx Nom (U) GNR lactose bowl sander [facility] Bilirubin Test strip Ql (U)O rdered By: Bonny Glynn on 10-02-2022 Bilirubin Ql (U) Negative Negative [facility] Ketones Test strip Ql (U)Ord ered By: Bonny Glynn on 10-02-2022 Ketones Ql (U) Negative Negative [facility] Nitrite Test strip Ql (U)Ord ered By: Bonny Glynn on 10-02-2022 Nitrite Ql (U) Positive Negative [facility] Protein Test strip Ql (U)Ord ered By: Bonny Glynn on 10-02-2022 Protein Ql (U) 100 mg/dl Negative [facility] Urine blood detectionOrdered By: Bonny Glynn on 10-02-2022 RBC Ql (U) 25 /ul Negative [facility] Urine clarityOrdered By: Ysabel Glynn on 10-02-2022 Clarity (U) Cloudy Clear [facility] Urine color determinationOrd ered By: Bonny Glynn on 10-02-2022 Color (U) Yellow Yellow [facility] Urine glucose detectionOrder ed By: Bonny Glynn on 10-02-2022 Glucose Ql (U) 50 mg/dl Normal [facility] Urine leukocyte esterase det ection by dipstickOrdered By: Bonny Glynn on 10-02-2022 Leukocyte esterase Test strip Ql (U) 500 /ul Negative [facility] Urine pHOrdered By: Bonny orosco on 10-02-2022 pH (U) 6.0 [pH] 5.0 - 8.0 [facility] Urine specific gravity measu rementOrdered By: Bonny Glynn on 10-02-2022 Specific gravity (U) [Rel density] 1.010 1.002-1.030 [facility] Urobilinogen Auto test strip Ql (U)Ordered By: Bonny Glynn on 10-02-2022 Urobilinogen Ql (U) Normal mg/dl Normal [facility] PEDRO HILLMAN ([id number]) 1945 M Date Time Provider Department 07/28/22 JESSIE RORDIGUEZ [facility] During your visit today, we recorded the following information about you: Jessie Rodriguez APRN.DOCUMENT DESIGN SPECIALIST 07/28/2022 1:45 PM Signed In reviewing [...] Status:Closed by JESSIE RODRIGUEZ on 08/09/[address] [facility] Anaerobic cultureOrdered By: Bonny Glynn on 07-21-2022 Bacteria identified Anaer cx Nom (Unsp spec) No anaerobic bacteria isolated. [facility] Bacteria identified Cx Nom ( Wound)Ordered By: Bonny Glynn on 07-20-2022 Wound Culture Staphylococcus pseudintermediu [facility] Gram stain for investigation of transfusion reactionOrdered By: Bonny Glynn on 07-19-2022 Microscopic observation Gram stain Nom (Unsp spec) [facility] No Panel InformationOrdered By: Dr. Choi on 06-01-2022 Estimated GFR (MDRD) Amer 63 mL/min >60 [facility] Comment on above: GFR Calc Estimated GFR (MDRD) Non-Af Amer 52 mL/min >60 [facility] Comment on above: Non- GFR Calc Serum or plasma creatinine m easurement (mass/volume)Ordered By: Dr. Choi on 06-01-2022 Creatinine [Mass/Vol] 1.40 mg/dL 0.70-1.30 [facility] Comment on above: The validity of the calculated GFR & GFRAA in patients over 70 years has not been determined. Clinical correlation is essential. Basophil percentageon 2021 Basophil percentage < 0.9 mg/dL 0.70-1.30 [facility] Work Phone: No Panel Informationon 05-22 Bedside Estimated GFR (eGFR) > 60.0000 mL/min >60 [facility] Work Phone: Absolute lymphocyte counton 04-14-2022 Lymphocytes Auto (Unsp spec) [#/Vol] 0.64 10*3/uL 0.83-4.51 [facility] Work Phone: Basophil percentageon 2021 Basophil percentage 0 SEEN /hpf 0-5 [facility] Work Phone: Basophils/100 WBC (Bld) 0.3 % 0-1 [facility] Work Phone: Bilirubin [Mass/Vol] 0.50 mg/dL 0.20-1.00 [facility] Work Phone: Comment on above: For patients on eltr ombopag therapy, use of Dimension [place] TBIL is not recommended. Chloride [Moles/Vol] 103 mmol/L 98-107 [facility] Work Phone: Eosinophils/100 WBC (Bld) 0.5 % 0-5 [facility] Work Phone: Glucose [Mass/Vol] 46 mg/dL 74-106 [facility] Work Phone: Comment on above: Glucose result less than 50 mg/dL suggests HYPOGLYCEMIA. Neutrophils (Bld) [#/Vol] 5.0 10*3/uL 2.0-7.7 [facility] Work Phone: Neutrophils/100 WBC (Bld) 76.1 % 47-70 [facility] Work Phone: Potassium [Moles/Vol] 4.2 mmol/L 3.5-5.1 [facility] Work Phone: Protein [Mass/Vol] 8.2 g/dL 6.4-8.2 [facility] Work Phone: Sodium [Moles/Vol] 136 mmol/L 136-145 [facility] Work Phone: WBC (Bld) [#/Vol] 6.6 10*3/uL 4.4-11.0 [facility] Work Phone: Bilirubin Test strip Ql (U)o n 04-14-2022 Bilirubin Ql (U) Negative Negative [facility] Work Phone: Blood erythrocytes count (nu mber/volume)on 04-14-2022 RBC (Bld) [#/Vol] 5.00 10*6/uL 4.6-6.2 [facility] Work Phone: Blood hemoglobin measurement (mass/volume)on 04-14-2022 Hemoglobin (Bld) [Mass/Vol] 13.9 g/dL 13.0-16.5 [facility] Work Phone: Blood lymphocytes/100 leukoc yteson 04-14-2022 Lymphocytes/100 WBC (Bld) 9.7 % 19-41 [facility] Work Phone: Blood monocytes/100 leukocyt eson 04-14-2022 Monocytes/100 WBC (Bld) 12.3 % 0-10 [facility] Work Phone: Blood platelet mean volumeon 04-14-2022 Platelet mean volume (Bld) [Entitic vol] 10.5 fL 6.2-12.0 [facility] Work Phone: Determination of erythrocyte mean corpuscular volume (MCV)on 04-14-2022 MCV (RBC) [Entitic vol] 86.4 fL 80-94 [facility] Work Phone: Glucose Glucometer (BldC) [M ass/Vol]on 04-14-2022 Glucose [Mass/Vol] 113 mg/dL 74-106 [facility] Work Phone: Comment on above: MANAGEMENT OF PATIEN T CARE PER NURSING PROTOCOL Hematocrit Auto (Bld) [Volum e fraction]on 04-14-2022 Hematocrit (Bld) [Volume fraction] 43.2 % 40-54 [facility] Work Phone: INR in Blood by Coagulation assayon 04-14-2022 INR Coag (Bld) [Relative time] 1.1 {INR} [facility] Work Phone: Ketones Test strip Ql (U)on 04-14-2022 Ketones Ql (U) 5 mg/dl Negative [facility] Work Phone: Laboratory - Chemistry and C hemistry - challengeon 04-14-2022 ALP [Catalytic activity/Vol] 63 U/L 45-117 [facility] Work Phone: ALT [Catalytic activity/Vol] 29 U/L 16-61 [facility] Work Phone: CO2 [Moles/Vol] 25.0 mmol/L 21.0-32.0 [facility] Work Phone: Globulin (S) [Mass/Vol] 5.1 g/dL 2.2-4.2 [facility] Work Phone: Urea nitrogen/Creatinine [Mass ratio] 37.6 mg/mg 10-20 [facility] Work Phone: Laboratory - Coagulationon 0 04-14-2022 PT Coag (PPP) [Time] 14.0 s 11.7-14.9 [facility] Work Phone: Laboratory - Hematology and Cell countson 04-14-2022 Erythrocyte distribution width (RBC) [Entitic vol] 49.0 fL 35.1-43.9 [facility] Work Phone: Erythrocyte distribution width (RBC) [Ratio] 15.4 % 11.6-14.6 [facility] Work Phone: Immature granulocytes/100 WBC (Bld) 1.100 % 0.0-0.9 [facility] Work Phone: Comment on above: IG% - Immature Granu locytes (promyelocytes, myelocytes and metamyelocytes) > 1% indicates that a LEFT SHIFT is Present. MCH (RBC) [Entitic mass] 27.8 pg 27.0-32.0 [facility] Work Phone: Nucleated RBC/100 WBC (Bld) [Ratio] 0 % 0-5 [facility] Work Phone: MCHC Auto (RBC) [Mass/Vol]on 04-14-2022 MCHC (RBC) [Mass/Vol] 32.2 g/dL 32-36 [facility] Work Phone: Mucus LM Ql (Urine sed)on Mucus Ql (Urine sed) 0 SEEN /hpf [facility] Work Phone: Nitrite Test strip Ql (U)on 04-14-2022 Nitrite Ql (U) Negative Negative [facility] Work Phone: No Panel Informationon 04-14 Estimated Creatinine Clearance Calc 35.56 ml/min [facility] Work Phone: Estimated GFR (MDRD) Amer 55 mL/min >60 [facility] Work Phone: Comment on above: GFR Calc Estimated GFR (MDRD) Non-Af Amer 46 mL/min >60 [facility] Work Phone: Comment on above: Non- GFR Calc Platelets bldon 04-14-2022 Platelets (Bld) [#/Vol] 293 10*3/uL 150-450 [facility] Work Phone: Platelets (Bld) [#/Vol] 287 10*3/uL 150-450 [facility] Work Phone: Protein Test strip Ql (U)on 04-14-2022 Protein Ql (U) 30 mg/dl Negative [facility] Work Phone: Serum or plasma albumin [place] urement (mass/volume)on 04-14-2022 Albumin [Mass/Vol] 3.1 g/dL 3.2-5.0 [facility] Work Phone: Serum or plasma albumin/glob ulin mass ratioon 04-14-2022 Albumin/Globulin [Mass ratio] 0.6 {ratio} 0.9-2.4 [facility] Work Phone: Serum or plasma calcium [place] urement (mass/volume)on 04-14-2022 Calcium [Mass/Vol] 9.9 mg/dL 8.5-10.1 [facility] Work Phone: Serum or plasma creatinine m easurement (mass/volume)on 04-14-2022 Creatinine [Mass/Vol] 1.57 mg/dL 0.70-1.30 [facility] Work Phone: Comment on above: The validity of the calculated GFR & GFRAA in patients over 70 years has not been determined. Clinical correlation is essential. Serum or plasma urea nitroge n measurement (mass/volume)on 04-14-2022 Urea nitrogen [Mass/Vol] 59 mg/dL 7-18 [facility] Work Phone: Squamous epithelial cells de tection in urine sediment by light microscopyon 04-14-2022 Epithelial cells.squamous LM Ql (Urine sed) 0-5 SEEN /hpf 0-5 [facility] Work Phone: Thin prep Papanicolaou smear with manual screeningon 04-14-2022 Thin prep Papanicolaou smear with manual screening 30 U/L 15-37 [facility] Work Phone: Thin prep Papanicolaou smear with manual screening 8 5-15 [facility] Work Phone: Urine blood detectionon 03-21 RBC Ql (U) Negative Negative [facility] Work Phone: RBC Ql (U) 0 SEEN /hpf 0-5 [facility] Work Phone: Urine clarityon 04-14-2022 Clarity (U) Clear Clear [facility] Work Phone: Urine color determinationon 04-14-2022 Color (U) Yellow Yellow [facility] Work Phone: Urine glucose detectionon Glucose Ql (U) Normal mg/dl Normal [facility] Work Phone: Urine leukocyte esterase det ection by dipstickon 04-14-2022 Leukocyte esterase Test strip Ql (U) 25 /ul Negative [facility] Work Phone: Urine pHon 04-14-2022 pH (U) 6.0 [pH] 5.0 - 8.0 [facility] Work Phone: Urine sediment bacteria coun t by microscopy (number/high power field)on 04-14-2022 Bacteria LM.HPF (Urine sed) [#/Area] 0 /[HPF] None Seen [facility] Work Phone: Urine specific gravity measu rementon 04-14-2022 Specific gravity (U) [Rel density] 1.010 1.002-1.030 [facility] Work Phone: Urobilinogen Auto test strip Ql (U)on 04-14-2022 Urobilinogen Ql (U) Normal mg/dl Normal [facility] Work Phone: Basophil percentageon 2021 Creatinine [Mass/Vol] 1.4 mg/dL 0.70-1.30 [facility] Work Phone: Laboratory - Chemistry and C hemistry - challengeon 04-12-2022 GFR/1.73 sq M.predicted among non-blacks MDRD (S/P/Bld) [Vol rate/Area] 50.0000 mL/min/{1.73_m2} >60 [facility] Work Phone: Adriana 04-06-2022 CNPN Telephone ([facility]WSTR) KADYPEDRO Melendez ([id number]) 1945 M Date Time Provider Department 04/06/22 DEREK WHELAN [facility] During your visit today, we recorded the [...] Signed Still unable to reach patient and contact center team lead is spouse with same number.Sigrid Mock 04/07/2022 5:49 PM Signed Unable to reach patient. Mailbox full/Mailbox not set up/ Number incorrect. Please try again later. Ashley Ramirez Allie 04/08/2022 9:23 AM Signed left message on machine to give call back, different number from pharmacy. [phone]. Ashley Ramirez Allie 04/08/2022 2:56 PM Signed [...] Status:Closed by ASHLEY MOCK on 04/08/[address] [facility] Bacteria Ur Culton 2 Bacteria identified Cx Nom (U) [id number] Abnormal [facility] Comment on above: Order Comment: Speci men Type: URINE SPECIMEN Ordering Facility: [facility] Address: [address] [place] [address] Result Comment: >=10 0,000 CFU/ml Streptococcus mitis-oralis group No further workup Performed By: #### 6 30-4 #### [facility] CLIA [id number] [address] [place], [place] [id number] [place] CNOVon 04-05-2022 CNOV Office Visit ([facility]WSTR) PEDRO HILLMAN ([id number]) 1945 M Date Time Provider Department 04/05/22 1:15 PM JESSIE RODRIGUEZ [facility] During your visit today, we recorded the following information about you: Temperature Pulse Respiration Blood pressure 101.6 degrees 76/minute 16/minute 122/76 Weight 87.1 kg Jessie Rodriguez APRN.DOCUMENT DESIGN SPECIALIST 04/05/2022 3:51 PM Signed Subjective HPI [...] up a (more content not included)... [facility] TASIA Tele[facility] ([facility]) PEDRO HILLMAN ([id number]) 1945 M Date Time Provider Department 04/05/22 JESSIE RODRIGUEZ [facility] During your visit today, we recorded the following information about you: Jessie Rodriguez APRN.CNP 04/05/2022 2:59 PM Signed Radiology report faxed to patient's PCP Dr. Tonio Fajardo at [phone]. Confirmation of fax received. Patient was advised [...] Status:Closed by JESSIE RODRIGUEZ on 04/05/[address] [facility] No Panel InformationOrdered By: Ccf Provider on 04-05-2022 Radiology Result ACTIONABLE Abnormal [facility] Comment on above: This report contains an [...] (POC)on 2021 BILIRUBIN UA (POCT) Negative Negative [facility] CLARITY UA (POCT) Cloudy [facility] COLOR UA (POCT) Dark yellow [facility] GLUCOSE UA (POCT) Negative Negative mg/dL [facility] HEMOGLOBIN/BLOOD UA (POCT) Small Abnormal Negative [facility] KETONE UA (POCT) Negative Negative mg/dL [facility] LEUKOCYTES UA (POCT) Large Abnormal Negative [facility] NITRITE UA (POCT) Negative Negative [facility] PH UA (POCT) 6.0 4.5 - 8.0 [facility] Protein Ql (U) 100 mg/dL Abnormal Negative mg/dL [facility] SPECIFIC GRAVITY UA (POCT) 1.020 1.005 - 1.030 [facility] UROBILINOGEN UA (POCT) 0.2 E.U./dL Umm l E.U./dL [facility] XR CHEST 2V FRONTAL/LATon XR CHEST [...] be communicated with the ordering provider via [employer] staff message or phone message by [facility] within 2 business days of report finalization. Algorithms for management of incidental imaging findings can be found on the [facility] Intranet Sharepoint site at: [email or web address]://[email or web address]/d [email or web address]/mychart links/Managing%20Inc idental%20Findi ngs%20at%20Imaging/F orms/AllItems.aspx Shuttle Car Operator: JONATHAN Transcribe Date/Time: Apr 05 2022 2:11P Dictated by : SANDEEP ORTIZ MD This examination was interpreted and the report reviewed and electronically signed by: SANDEEP ORTIZ MD on Apr 05 2022 2:13PM EST [id number] CN ACTIONABLE Invalid Interpretation Code [facility] XR Chest PA and LateralOrder ed By: Cc Provider on 04-05-2022 Interpretation and review of laboratory results Abnormal [facility] XR Chest PA and Lateralon IMPRESSION: [...] be communicated with the ordering provider via [employer] staff message or phone message by [facility] within 2 business days of report finalization. Algorithms for management of incidental imaging findings can be found on the [facility] Intranet Sharepoint site at: [email or web address]://[email or web address] [email or web address]/mychart links/Managing%20Inc idental%20Findi ngs%20at%20Imaging/F orms/AllItems.aspx Shuttle Car Operator: JONATHAN Transcribe Date/Time: Apr 05 2022 2:11P Dictated by : SANDEEP ORTIZ MD This examination was interpreted and the report reviewed and electronically signed by: SANDEEP ORTIZ MD on Apr 05 2022 2:13PM [facility] DIVISION OF RADIOLOGY * * *Final [...] the thoracic spine. DIVISION OF RADIOLOGY Provider, [facility] [place] - 04/05/2022 * * *Final Report* * [...] be communicated with the ordering provider via [employer] staff message or phone message by [facility] within 2 business days of report finalization. Algorithms for management of incidental imaging findings can be found on the [facility] Intranet Sharepoint site at: [email or web address]://[email or web address] [email or web address]/mychart links/Managing%20Inc idental%20Findi ngs%20at%20Imaging/F orms/AllItems.aspx Shuttle Car Operator: JONATHAN Transcribe Date/Time: Apr 05 2022 2:11P Dictated by : SANDEEP ORTIZ MD This examination was interpreted and the report reviewed and electronically signed by: SANDEEP ORTIZ MD on Apr 05 2022 2:13PM EST [facility] Radiology Study observation (narrative) [facility] Anaerobic culture Bacteria identified Anaer cx Nom (Unsp spec) No anaerobic bacteria isolated. [facility] Work Phone: Bacteria identified Anaer cx Nom (Unsp spec) Anaerobic Culture Anaerobic cocci [facility] Work Phone: Bacteria identified Cx Nom ( Wound) Wound Culture Staphylococcus pseudintermediu [facility] Work Phone: Wound Culture Staphylococcus saprophyticus [facility] Work Phone: Gram stain for investigation of transfusion reaction Microscopic observation Gram stain Nom (Unsp spec) [facility] Work Phone: Vital Signs Date Time Vital Sign Value Performing Clinician Facility 03-17-2025 13:07-0400 Body height 167.[address] Tonio Fajardo DO Work Phone: [facility] 03-17-2025 13:07-0400 Body mass index (BMI) [Ratio] 26.6 kg/m2 Dr. Tonio Fajardo DO Work Phone: [facility] 03-17-2025 13:07-0400 Body weight 74.[address] Tonio Fajardo DO Work Phone: [facility] 03-17-2025 13:07-0400 Diastolic blood pressure 60 mm[Hg] Dr. Tonio Fajardo DO Work Phone: [facility] 03-17-2025 13:07-0400 Heart rate 101 /min Dr. Tonio Fajardo DO Work Phone: [facility] 03-17-2025 13:07-0400 Inhaled oxygen flow rate 3 L/min Dr. Tonio Fajardo DO Work Phone: [facility] 03-17-2025 13:07-0400 Respiratory rate 20 /min Dr. Tonio Fajardo DO Work Phone: [facility] 03-17-2025 13:07-0400 SaO2% (BldA) [Mass fraction] 96 % Dr. Tonio Fajardo DO Work Phone: [facility] 03-17-2025 13:07-0400 Systolic blood pressure 124 mm[Hg] Dr. Tonio Fajardo DO Work Phone: [facility] 03-15-2025 18:32-0400 Body temperature 98.1 [degF] Dr. Tonio Fajardo DO Work Phone: [facility] 03-15-2025 18:32-0400 Diastolic blood pressure 71 mm[Hg] Dr. Tonio Fajardo DO Work Phone: [facility] 03-15-2025 18:32-0400 Heart rate 101 /min Dr. Tonio Fajardo DO Work Phone: [facility] 03-15-2025 18:32-0400 Respiratory rate 18 /min Dr. Tonio Fajardo DO Work Phone: [facility] 03-15-2025 18:32-0400 SaO2% (BldA) [Mass fraction] 93 % Dr. Tonio Fajardo DO Work Phone: [facility] 03-15-2025 18:32-0400 Systolic blood pressure 168 mm[Hg] Dr. Tonio Fajardo DO Work Phone: [facility] 03-15-2025 16:58-0400 Body height 167.[address] Tonio Fajardo DO Work Phone: [facility] 03-15-2025 16:58-0400 Body mass index (BMI) [Ratio] 27.8 kg/m2 Dr. Tonio Fajardo DO Work Phone: [facility] 03-15-2025 16:58-0400 Body weight 78.[address] Tonio Fajardo DO Work Phone: [facility] 03-15-2025 16:58-0400 Inhaled oxygen flow rate 3 L/min Dr. Tonio Fajardo DO Work Phone: [facility] 03-09-2025 16:22-0400 Body temperature 98.5 [degF] Dr. Tonio Fajardo DO Work Phone: [facility] 03-09-2025 16:22-0400 Heart rate 78 /min Dr. Tonio Fajardo DO Work Phone: [facility] 03-09-2025 16:22-0400 Inhaled oxygen flow rate 3 L/min Dr. Tonio Fajardo DO Work Phone: [facility] 03-09-2025 16:22-0400 Respiratory rate 20 /min Dr. Tonio Fajardo DO Work Phone: [facility] 03-09-2025 16:22-0400 SaO2% (BldA) [Mass fraction] 92 % Dr. Tonio Fajardo DO Work Phone: [facility] 03-09-2025 11:48-0400 Inhaled oxygen flow rate 2 L/min Dr. Tonio Fajardo DO Work Phone: [facility] 03-09-2025 11:48-0400 SaO2% (BldA) [Mass fraction] 79 % Dr. Tonio Fajardo DO Work Phone: [facility] 03-09-2025 11:11-0400 Body height 167.[address] Tonio Fajardo DO Work Phone: [facility] 03-09-2025 11:11-0400 Body weight 78.[address] Tonio Fajardo DO Work Phone: [facility] 03-09-2025 10:00-0400 Diastolic blood pressure 51 mm[Hg] Dr. Tonio Fajardo DO Work Phone: [facility] 03-09-2025 10:00-0400 Heart rate 97 /min Dr. Tonio Fajardo DO Work Phone: [facility] 03-09-2025 10:00-0400 Systolic blood pressure 129 mm[Hg] Dr. Tonio Fajardo DO Work Phone: [facility] 03-09-2025 05:00-0400 Body mass index (BMI) [Ratio] 28 kg/m2 Dr. Tonio Fajardo DO Work Phone: [facility] 03-04-2025 20:49-0400 Body temperature 98.6 [degF] Dr. Tonio Fajardo DO Work Phone: [facility] 03-04-2025 20:49-0400 Diastolic blood pressure 70 mm[Hg] Dr. Tonio Fajardo DO Work Phone: [facility] 03-04-2025 20:49-0400 Heart rate 114 /min Dr. Tonio Fajardo DO Work Phone: [facility] 03-04-2025 20:49-0400 Respiratory rate 20 /min Dr. Tonio Fajardo DO Work Phone: [facility] 03-04-2025 20:49-0400 SaO2% (BldA) [Mass fraction] 100 % Dr. Tonio Fajardo DO Work Phone: [facility] 03-04-2025 20:49-0400 Systolic blood pressure 153 mm[Hg] Dr. Tonio Fajardo DO Work Phone: [facility] 03-04-2025 20:00-0400 Inhaled oxygen flow rate 4 L/min Dr. Tonio Fajardo DO Work Phone: [facility] 03-04-2025 15:01-0400 Body height 167.[address] Tonio Fajardo DO Work Phone: [facility] 03-04-2025 15:01-0400 Body mass index (BMI) [Ratio] 25.9 kg/m2 Dr. Tonio Fajardo DO Work Phone: [facility] 03-04-2025 15:01-0400 Body weight 73.[address] Tonio Fajardo DO Work Phone: [facility] 11-06-2024 14:45-0400 Body height 167.[address] Tonio Fajardo DO Work Phone: [facility] 11-06-2024 14:45-0400 Body mass index (BMI) [Ratio] 28.5 kg/m2 Dr. Tonio Fajardo DO Work Phone: [facility] 11-06-2024 14:45-0400 Body temperature 98.5 [degF] Dr. Tonio Fajardo DO Work Phone: [facility] 11-06-2024 14:45-0400 Body weight 80.[address] Tonio Fajardo DO Work Phone: [facility] 11-06-2024 14:45-0400 Diastolic blood pressure 55 mm[Hg] Dr. Tonio Fajardo DO Work Phone: [facility] 11-06-2024 14:45-0400 Heart rate 55 /min Dr. Tonio Fajardo DO Work Phone: [facility] 11-06-2024 14:45-0400 Respiratory rate 18 /min Dr. Tonio Fajardo DO Work Phone: [facility] 11-06-2024 14:45-0400 SaO2% (BldA) [Mass fraction] 95 % Dr. Tonio Fajardo DO Work Phone: [facility] 11-06-2024 14:45-0400 Systolic blood pressure 116 mm[Hg] Dr. Tonio Fajardo DO Work Phone: [facility] 10-23-2024 09:06-0500 Body mass index (BMI) [Ratio] 28.5 kg/m2 Dr. Tonio Fajardo DO Work Phone: [facility] 10-23-2024 09:06-0500 Body temperature 97.4 [degF] Dr. Tonio Fajardo DO Work Phone: [facility] 10-23-2024 09:06-0500 Body weight 80.[address] Tonio Fajardo DO Work Phone: [facility] 10-23-2024 09:06-0500 Diastolic blood pressure 56 mm[Hg] Dr. Tonio Fajardo DO Work Phone: [facility] 10-23-2024 09:06-0500 Heart rate 52 /min Dr. Tonio Fajardo DO Work Phone: [facility] 10-23-2024 09:06-0500 Inhaled oxygen flow rate 3 L/min Dr. Tonio Fajardo DO Work Phone: [facility] 10-23-2024 09:06-0500 Respiratory rate 26 /min Dr. Tonio Fajardo DO Work Phone: [facility] 10-23-2024 09:06-0500 SaO2% (BldA) [Mass fraction] 97 % Dr. Tonio Fajardo DO Work Phone: [facility] 10-23-2024 09:06-0500 Systolic blood pressure 128 mm[Hg] Dr. Tonio Fajardo DO Work Phone: [facility] 10-16-2024 13:24-0500 Body height 167.[address] Tonio Fajardo DO Work Phone: [facility] 10-16-2024 13:24-0500 Body weight 78.[address] Tonio Fajardo DO Work Phone: [facility] 10-16-2024 13:24-0500 Heart rate 98 /min Dr. Tonio Fajardo DO Work Phone: [facility] 10-16-2024 13:24-0500 Inhaled oxygen flow rate 2 L/min Dr. Tonio Fajardo DO Work Phone: [facility] 10-16-2024 13:24-0500 SaO2% (BldA) [Mass fraction] 96 % Dr. Tonio Fajardo DO Work Phone: [facility] 09-25-2024 12:59-0500 Body mass index (BMI) [Ratio] 27.7 kg/m2 Dr. Tonio Fajardo DO Work Phone: [facility] 09-25-2024 12:59-0500 Body weight 80.[address] Tonio Fajardo DO Work Phone: [facility] 09-25-2024 12:59-0500 Diastolic blood pressure 75 mm[Hg] Dr. Tonio Fajardo DO Work Phone: [facility] 09-25-2024 12:59-0500 Heart rate 99 /min Dr. Tonio Fajardo DO Work Phone: [facility] 09-25-2024 12:59-0500 Respiratory rate 18 /min Dr. Tonio Fajardo DO Work Phone: [facility] 09-25-2024 12:59-0500 SaO2% (BldA) [Mass fraction] 90 % Dr. Tonio Fajardo DO Work Phone: [facility] 09-25-2024 12:59-0500 Systolic blood pressure 120 mm[Hg] Dr. Tonio Fajardo DO Work Phone: [facility] 11-12-2023 13:22-0400 Body height 170.[address] Tonio Fajardo Work Phone: [facility] 11-12-2023 13:22-0400 Body mass index (BMI) [Ratio] 28 kg/m2 Dr. Tonio Fajardo Work Phone: [facility] 11-12-2023 13:22-0400 Body temperature 97.9 [degF] Dr. Tonio Fajardo Work Phone: [facility] 11-12-2023 13:22-0400 Body weight 81.[address] Tonio Fajardo Work Phone: [facility] 11-12-2023 13:22-0400 Diastolic blood pressure 62 mm[Hg] Dr. Tonio Fajardo Work Phone: [facility] 11-12-2023 13:22-0400 Heart rate 103 /min Dr. Tonio Fajardo Work Phone: [facility] 11-12-2023 13:22-0400 Respiratory rate 18 /min Dr. Tonio Fajardo Work Phone: [facility] 11-12-2023 13:22-0400 SaO2% (BldA) [Mass fraction] 98 % Dr. Tonio Fajardo Work Phone: [facility] 11-12-2023 13:22-0400 Systolic blood pressure 97 mm[Hg] Dr. Tonio aFjardo Work Phone: [facility] 10-31-2023 12:05-0400 Body mass index (BMI) [Ratio] 27.3 kg/m2 Dr. Tonio Fajardo Work Phone: [facility] 10-31-2023 12:05-0400 Body temperature 98.2 [degF] Dr. Tonio Fajardo Work Phone: [facility] 10-31-2023 12:05-0400 Body weight 79.[address] Tonio Fajardo Work Phone: [facility] 10-31-2023 12:05-0400 Diastolic blood pressure 71 mm[Hg] Dr. Tonio Fajardo Work Phone: [facility] 10-31-2023 12:05-0400 Heart rate 78 /min Dr. Tonio Fajardo Work Phone: [facility] 10-31-2023 12:05-0400 Respiratory rate 18 /min Dr. Tonio Fajardo Work Phone: [facility] 10-31-2023 12:05-0400 SaO2% (BldA) [Mass fraction] 94 % Dr. Tonio Fajardo Work Phone: [facility] 10-31-2023 12:05-0400 Systolic blood pressure 119 mm[Hg] Dr. Tonio Fajardo Work Phone: [facility] 10-18-2023 14:51-0500 Body mass index (BMI) [Ratio] 28 kg/m2 Dr. Tonio Fajardo Work Phone: [facility] 10-18-2023 14:51-0500 Body temperature 98.9 [degF] Dr. Tonio Fajardo Work Phone: [facility] 10-18-2023 14:51-0500 Body weight 81.[address] Tonio Fajardo Work Phone: [facility] 10-18-2023 14:51-0500 Diastolic blood pressure 60 mm[Hg] Dr. Tonio Fajardo Work Phone: [facility] 10-18-2023 14:51-0500 Heart rate 98 /min Dr. Tonio Fajardo Work Phone: [facility] 10-18-2023 14:51-0500 Respiratory rate 18 /min Dr. Tonio Fajardo Work Phone: [facility] 10-18-2023 14:51-0500 SaO2% (BldA) [Mass fraction] 96 % Dr. Tonio Fajardo Work Phone: [facility] 10-18-2023 14:51-0500 Systolic blood pressure 114 mm[Hg] Dr. Tonio Fajardo Work Phone: [facility] 08-29-2023 12:52-0500 Body height 170.[address] Tonio Fajardo Work Phone: [facility] 08-29-2023 12:52-0500 Body mass index (BMI) [Ratio] 27.8 kg/m2 Dr. Tonio Fajardo Work Phone: [facility] 08-29-2023 12:52-0500 Body weight 80.[address] Tonio Fajardo Work Phone: [facility] 08-29-2023 12:52-0500 Diastolic blood pressure 71 mm[Hg] Dr. Tonio Fajardo Work Phone: [facility] 08-29-2023 12:52-0500 Heart rate 95 /min Dr. Tonio Fajardo Work Phone: [facility] 08-29-2023 12:52-0500 Respiratory rate 18 /min Dr. Tonio Fajadro Work Phone: [facility] 08-29-2023 12:52-0500 SaO2% (BldA) [Mass fraction] 97 % Dr. Tonio Fajardo Work Phone: [facility] 08-29-2023 12:52-0500 Systolic blood pressure 111 mm[Hg] Dr. Tonio Fajardo Work Phone: [facility] 07-25-2023 07:50-0500 Body height 170.[address] Tonio Fajardo Work Phone: [facility] 07-25-2023 07:50-0500 Body mass index (BMI) [Ratio] 29.4 kg/m2 Dr. Tonio Fajardo Work Phone: [facility] 07-25-2023 07:50-0500 Body temperature 96.2 [degF] Dr. Tonio Fajardo Work Phone: [facility] 07-25-2023 07:50-0500 Body weight 85.[address] Tonio Fajardo Work Phone: [facility] 07-25-2023 07:50-0500 Diastolic blood pressure 75 mm[Hg] Dr. Tonio Fajardo Work Phone: [facility] 07-25-2023 07:50-0500 Heart rate 53 /min Dr. Tonio Fajardo Work Phone: [facility] 07-25-2023 07:50-0500 Respiratory rate 20 /min Dr. Tonio Fajardo Work Phone: [facility] 07-25-2023 07:50-0500 SaO2% (BldA) [Mass fraction] 82 % Dr. Tonio Fajardo Work Phone: [facility] 07-25-2023 07:50-0500 Systolic blood pressure 119 mm[Hg] Dr. Tonio Fajardo Work Phone: [facility] 06-08-2023 14:33-0400 Body temperature 97.1 [degF] Dr. Tonio Fajardo Work Phone: [facility] 06-08-2023 14:33-0400 Diastolic blood pressure 67 mm[Hg] Dr. Tonio Fajardo Work Phone: [facility] 06-08-2023 14:33-0400 Heart rate 103 /min Dr. Tonio Fajardo Work Phone: [facility] 06-08-2023 14:33-0400 Respiratory rate 14 /min Dr. Tonio Fajardo Work Phone: [facility] 06-08-2023 14:33-0400 SaO2% (BldA) [Mass fraction] 93 % Dr. Tonio Fajardo Work Phone: [facility] 06-08-2023 14:33-0400 Systolic blood pressure 133 mm[Hg] Dr. Tonio Fajardo Work Phone: [facility] 06-08-2023 12:20-0400 Body height 170.[address] Tonio Fajardo Work Phone: [facility] 06-08-2023 12:20-0400 Body mass index (BMI) [Ratio] 29.3 kg/m2 Dr. Tonio Fajardo Work Phone: [facility] 06-08-2023 12:20-0400 Body weight [address] Tonio Fajardo Work Phone: [facility] 05-02-2023 13:50-0400 Diastolic blood pressure 63 mm[Hg] Dr. Tonio Fajardo Work Phone: [facility] 05-02-2023 13:50-0400 Heart rate 97 /min Dr. Tonio Fajardo Work Phone: [facility] 05-02-2023 13:50-0400 Respiratory rate 18 /min Dr. Tonio Fajardo Work Phone: [facility] 05-02-2023 13:50-0400 Systolic blood pressure 113 mm[Hg] Dr. Tonio Fajardo Work Phone: [facility] 04-25-2023 14:04-0400 Body temperature 97.9 [degF] Dr. Tonio Fajardo Work Phone: [facility] 04-18-2023 13:24-0400 Body temperature 97.5 [degF] Dr. Tonio Fajardo Work Phone: [facility] 04-18-2023 13:24-0400 Diastolic blood pressure 77 mm[Hg] Dr. Tonio Fajardo Work Phone: [facility] 04-18-2023 13:24-0400 Heart rate 109 /min Dr. Tonio Fajardo Work Phone: [facility] 04-18-2023 13:24-0400 Respiratory rate 16 /min Dr. Tonio Fajardo Work Phone: [facility] 04-18-2023 13:24-0400 Systolic blood pressure 141 mm[Hg] Dr. Tonio Fajardo Work Phone: [facility] 04-17-2023 11:08-0400 Body height 167.[address] Tonio Fajardo Work Phone: [facility] 04-17-2023 11:08-0400 Body mass index (BMI) [Ratio] 30.2 kg/m2 Dr. Tonio Fajardo Work Phone: [facility] 04-17-2023 11:08-0400 Body temperature 98.6 [degF] Dr. Tonio Fajardo Work Phone: [facility] 04-17-2023 11:08-0400 Body weight 84.[address] Tonio Fajardo Work Phone: [facility] 04-17-2023 11:08-0400 Diastolic blood pressure 87 mm[Hg] Dr. Tonio Fajardo Work Phone: [facility] 04-17-2023 11:08-0400 Heart rate 87 /min Dr. Tonio Fajardo Work Phone: [facility] 04-17-2023 11:08-0400 Respiratory rate 18 /min Dr. Tonio Fajardo Work Phone: [facility] 04-17-2023 11:08-0400 SaO2% (BldA) [Mass fraction] 95 % Dr. Tonio Fajardo Work Phone: [facility] 04-17-2023 11:08-0400 Systolic blood pressure 130 mm[Hg] Dr. Tonio Fajardo Work Phone: [facility] 04-02-2023 11:24-0400 Body temperature 98.6 [degF] Dr. Tonio Fajardo Work Phone: [facility] 04-02-2023 11:24-0400 Diastolic blood pressure 55 mm[Hg] Dr. Tonio Fajardo Work Phone: [facility] 04-02-2023 11:24-0400 Heart rate 101 /min Dr. Tonio Fajardo Work Phone: [facility] 04-02-2023 11:24-0400 Respiratory rate 20 /min Dr. Tonio Fajardo Work Phone: [facility] 04-02-2023 11:24-0400 Systolic blood pressure 114 mm[Hg] Dr. Tonio Fajardo Work Phone: [facility] 03-19-2023 10:28-0400 Body temperature 98.2 [degF] Dr. Tonio Fajardo Work Phone: [facility] 03-19-2023 10:28-0400 Diastolic blood pressure 59 mm[Hg] Dr. Tonio Fajardo Work Phone: [facility] 03-19-2023 10:28-0400 Heart rate 106 /min Dr. Tonio Fajardo Work Phone: [facility] 03-19-2023 10:28-0400 Respiratory rate 20 /min Dr. Tonio Fajardo Work Phone: [facility] 03-19-2023 10:28-0400 Systolic blood pressure 120 mm[Hg] Dr. Tonio Fajardo Work Phone: [facility] 02-05-2023 13:10-0400 Body temperature 97.6 [degF] Dr. Tonio Fajardo Work Phone: [facility] 02-05-2023 13:10-0400 Diastolic blood pressure 76 mm[Hg] Dr. Tonio Fajardo Work Phone: [facility] 02-05-2023 13:10-0400 Heart rate 109 /min Dr. Tonio Fajardo Work Phone: [facility] 02-05-2023 13:10-0400 Respiratory rate 18 /min Dr. Tonio Fajardo Work Phone: [facility] 02-05-2023 13:10-0400 Systolic blood pressure 160 mm[Hg] Dr. Tonio Fajardo Work Phone: [facility] 01-08-2023 13:37-0400 Body temperature 96.7 [degF] Dr. Tonio Fajardo Work Phone: [facility] 01-08-2023 13:37-0400 Diastolic blood pressure 46 mm[Hg] Dr. Tonio Fajardo Work Phone: [facility] 01-08-2023 13:37-0400 Heart rate 111 /min Dr. Tonio Fajardo Work Phone: [facility] 01-08-2023 13:37-0400 Systolic blood pressure 121 mm[Hg] Dr. Tonio Fajardo Work Phone: [facility] 12-31-2022 00:58-0400 Body temperature 98.7 [degF] Dr. Tonio Fajardo Work Phone: [facility] 12-31-2022 00:58-0400 Diastolic blood pressure 59 mm[Hg] Dr. Tonio Fajardo Work Phone: [facility] 12-31-2022 00:58-0400 Heart rate 111 /min Dr. Tonio Fajardo Work Phone: [facility] 12-31-2022 00:58-0400 Respiratory rate 26 /min Dr. Tonio Fajardo Work Phone: [facility] 12-31-2022 00:58-0400 SaO2% (BldA) [Mass fraction] 93 % Dr. Tonio Fajardo Work Phone: [facility] 12-31-2022 00:58-0400 Systolic blood pressure 131 mm[Hg] Dr. Tonio Fajardo Work Phone: [facility] 12-30-2022 22:36-0400 Body height 167.[address] Tonio Fajardo Work Phone: [facility] 12-30-2022 22:36-0400 Body mass index (BMI) [Ratio] 30.5 kg/m2 Dr. Tonio Fajardo Work Phone: [facility] 12-30-2022 22:36-0400 Body weight 85.[address] Tonio Fajardo Work Phone: [facility] 12-25-2022 14:53-0400 Body temperature 97.7 [degF] Dr. Tonio Fajardo Work Phone: [facility] 12-25-2022 14:53-0400 Diastolic blood pressure 51 mm[Hg] Dr. Tonio Fajardo Work Phone: [facility] 12-25-2022 14:53-0400 Heart rate 110 /min Dr. Tonio Fajardo Work Phone: [facility] 12-25-2022 14:53-0400 Respiratory rate 18 /min Dr. Tonio Fajardo Work Phone: [facility] 12-25-2022 14:53-0400 Systolic blood pressure 101 mm[Hg] Dr. Tonio Fajardo Work Phone: [facility] 12-12-2022 10:49-0400 Body height 167.[address] Tonio Fajardo Work Phone: [facility] 12-12-2022 10:49-0400 Body mass index (BMI) [Ratio] 29.7 kg/m2 Dr. Tonio Fajardo Work Phone: [facility] 12-12-2022 10:49-0400 Body temperature 97.4 [degF] Dr. Tonio Fajardo Work Phone: [facility] 12-12-2022 10:49-0400 Body weight 83.[address] Tonio Fajardo Work Phone: [facility] 12-12-2022 10:49-0400 Diastolic blood pressure 71 mm[Hg] Dr. Tonio Fajardo Work Phone: [facility] 12-12-2022 10:49-0400 Heart rate 114 /min Dr. Tonio Fajardo Work Phone: [facility] 12-12-2022 10:49-0400 Respiratory rate 18 /min Dr. Tonio Fajardo Work Phone: [facility] 12-12-2022 10:49-0400 SaO2% (BldA) [Mass fraction] 96 % Dr. Tonio Fajardo Work Phone: [facility] 04-25-2023 10:49-0400 Systolic blood pressure 135 mm[Hg] Dr. Tonio Fajardo Work Phone: [facility] 12-11-2022 13:12-0400 Body temperature 96.2 [degF] Dr. Tonio Fajardo Work Phone: [facility] 12-11-2022 13:12-0400 Diastolic blood pressure 87 mm[Hg] Dr. Tonio Fajardo Work Phone: [facility] 12-11-2022 13:12-0400 Heart rate 107 /min Dr. Tonio Fajardo Work Phone: [facility] 12-11-2022 13:12-0400 Respiratory rate 20 /min Dr. Tonio Fajardo Work Phone: [facility] 12-11-2022 13:12-0400 Systolic blood pressure 110 mm[Hg] Dr. Tonio Fajardo Work Phone: [facility] 11-16-2022 13:13-0400 Diastolic blood pressure 49 mm[Hg] Dr. Tonio Fajardo Work Phone: [facility] 11-16-2022 13:13-0400 Heart rate 82 /min Dr. Tonio Fajardo Work Phone: [facility] 11-16-2022 13:13-0400 Respiratory rate 16 /min Dr. Tonio Fajardo Work Phone: [facility] 11-16-2022 13:13-0400 Systolic blood pressure 125 mm[Hg] Dr. Tonio Fajardo Work Phone: [facility] 11-08-2022 09:52-0400 Body temperature 97.3 [degF] Dr. Tonio Fajardo Work Phone: [facility] 10-16-2022 14:07-0500 Body height 167.[address] Tonio Fajardo Work Phone: [facility] 10-16-2022 14:05-0500 Body mass index (BMI) [Ratio] 29.8 kg/m2 Dr. Tonio Fajardo Work Phone: [facility] 10-16-2022 14:05-0500 Body temperature 97.6 [degF] Dr. Tonio Fajardo Work Phone: [facility] 10-16-2022 14:05-0500 Body weight 83.[address] Tonio Fajardo Work Phone: [facility] 10-16-2022 14:05-0500 Diastolic blood pressure 89 mm[Hg] Dr. Tonio Fajardo Work Phone: [facility] 10-16-2022 14:05-0500 Heart rate 78 /min Dr. Tonio Fajardo Work Phone: [facility] 10-16-2022 14:05-0500 Respiratory rate 18 /min Dr. Tonio Fajardo Work Phone: [facility] 10-16-2022 14:05-0500 SaO2% (BldA) [Mass fraction] 94 % Dr. Tonio Fajardo Work Phone: [facility] 10-16-2022 14:05-0500 Systolic blood pressure 145 mm[Hg] Dr. Tonio Fajardo Work Phone: [facility] 10-16-2022 13:24-0500 Body mass index (BMI) [Ratio] 29.8 kg/m2 Dr. Tonio Fajardo Work Phone: [facility] 10-16-2022 13:24-0500 Body temperature 98.6 [degF] Dr. Tonio Fajardo Work Phone: [facility] 10-16-2022 13:24-0500 Body weight 83.[address] Tonio Fajardo Work Phone: [facility] 10-16-2022 13:24-0500 Diastolic blood pressure 74 mm[Hg] Dr. Tonio Fajardo Work Phone: [facility] 10-16-2022 13:24-0500 Heart rate 75 /min Dr. Tonio Fajardo Work Phone: [facility] 10-16-2022 13:24-0500 Respiratory rate 18 /min Dr. Tonio Fajardo Work Phone: [facility] 10-16-2022 13:24-0500 SaO2% (BldA) [Mass fraction] 94 % Dr. Tonio Fajardo Work Phone: [facility] 10-16-2022 13:24-0500 Systolic blood pressure 146 mm[Hg] Dr. Tonio Fajardo Work Phone: [facility] 10-09-2022 12:59-0500 Body temperature 97.5 [degF] Dr. Tonio Fajardo Work Phone: [facility] 10-09-2022 12:59-0500 Diastolic blood pressure 63 mm[Hg] Dr. Tonio Fajardo Work Phone: [facility] 10-09-2022 12:59-0500 Heart rate 89 /min Dr. Tonio Fajardo Work Phone: [facility] 10-09-2022 12:59-0500 Respiratory rate 22 /min Dr. Tonio Fajardo Work Phone: [facility] 10-09-2022 12:59-0500 Systolic blood pressure 148 mm[Hg] Dr. Tonio Fajardo Work Phone: [facility] 09-18-2022 09:49-0500 Body temperature 97.3 [degF] Dr. Tonio Fajardo Work Phone: [facility] 09-18-2022 09:49-0500 Diastolic blood pressure 44 mm[Hg] Dr. Tonio Fajardo Work Phone: [facility] 09-18-2022 09:49-0500 Heart rate 66 /min Dr. Tonio Fajardo Work Phone: [facility] 09-18-2022 09:49-0500 Respiratory rate 18 /min Dr. Tonio Fajardo Work Phone: [facility] 09-18-2022 09:49-0500 Systolic blood pressure 138 mm[Hg] Dr. Tonio Fajardo Work Phone: [facility] 08-15-2022 13:56-0500 Body temperature 97.1 [degF] Dr. Tonio Fajardo Work Phone: [facility] 08-15-2022 13:56-0500 Diastolic blood pressure 43 mm[Hg] Dr. Tonio Fajardo Work Phone: [facility] 08-15-2022 13:56-0500 Heart rate 73 /min Dr. Tonio Faajrdo Work Phone: [facility] 08-15-2022 13:56-0500 Respiratory rate 16 /min Dr. Tonio Fajardo Work Phone: [facility] 08-15-2022 13:56-0500 Systolic blood pressure 139 mm[Hg] Dr. Tonio Fajardo Work Phone: [facility] 08-08-2022 14:00-0500 Body height 167.[address] Tonio Fajardo Work Phone: [facility] 08-08-2022 13:57-0500 Body mass index (BMI) [Ratio] 29.5 kg/m2 Dr. Tonio Fajardo Work Phone: [facility] 08-08-2022 13:57-0500 Body temperature 97.5 [degF] Dr. Tonio Fajardo Work Phone: [facility] 08-08-2022 13:57-0500 Body weight 83.[address] Tonio Fajardo Work Phone: [facility] 08-08-2022 13:57-0500 Diastolic blood pressure 54 mm[Hg] Dr. Tonio Fajardo Work Phone: [facility] 08-08-2022 13:57-0500 Heart rate 67 /min Dr. Tonio Fajardo Work Phone: [facility] 08-08-2022 13:57-0500 Respiratory rate 16 /min Dr. Tonio Fajardo Work Phone: [facility] 08-08-2022 13:57-0500 SaO2% (BldA) [Mass fraction] 94 % Dr. Tonio Fajardo Work Phone: [facility] 08-08-2022 13:57-0500 Systolic blood pressure 109 mm[Hg] Dr. Tonio Fajardo Work Phone: [facility] 07-19-2022 14:30-0500 Body height 167.[address] Tonio Fajardo Work Phone: [facility] Work Phone: 07-19-2022 14:30-0500 Body mass index (BMI) [Ratio] 29 kg/m2 Dr. Tonio Fajardo Work Phone: [facility] 07-19-2022 14:30-0500 Body weight 81.[address] Tonio Fajardo Work Phone: [facility] 07-19-2022 14:30-0500 Diastolic blood pressure 62 mm[Hg] Dr. Tonio Fajardo Work Phone: [facility] 07-19-2022 14:30-0500 Heart rate 66 /min Dr. Tonio Fajardo Work Phone: [facility] 07-19-2022 14:30-0500 Respiratory rate 24 /min Dr. Tonio Fajardo Work Phone: [facility] 07-19-2022 14:30-0500 SaO2% (BldA) [Mass fraction] 97 % Dr. Tonio Fajardo Work Phone: [facility] 07-19-2022 14:30-0500 Systolic blood pressure 117 mm[Hg] Dr. Tonio Fajardo Work Phone: [facility] 07-18-2022 13:29-0500 Body temperature 97.1 [degF] Dr. Tonio Fajardo Work Phone: [facility] 07-18-2022 13:29-0500 Diastolic blood pressure 57 mm[Hg] Dr. Tonio Fajardo Work Phone: [facility] 07-18-2022 13:29-0500 Heart rate 83 /min Dr. Tonio Fajardo Work Phone: [facility] 07-18-2022 13:29-0500 Respiratory rate 16 /min Dr. Tonio Fajardo Work Phone: [facility] 07-18-2022 13:29-0500 Systolic blood pressure 117 mm[Hg] Dr. Tonio Fajardo Work Phone: [facility] 07-17-2022 11:23-0500 Body temperature 98.3 [degF] Dr. Tonio Fajardo Work Phone: [facility] 07-17-2022 11:23-0500 Diastolic blood pressure 58 mm[Hg] Dr. Tonio Fajardo Work Phone: [facility] 07-17-2022 11:23-0500 Heart rate 63 /min Dr. Tonio Fajardo Work Phone: [facility] 07-17-2022 11:23-0500 Respiratory rate 16 /min Dr. Tonio Fajardo Work Phone: [facility] 07-17-2022 11:23-0500 SaO2% (BldA) [Mass fraction] 97 % Dr. Tonio Fajardo Work Phone: [facility] 07-17-2022 11:23-0500 Systolic blood pressure 107 mm[Hg] Dr. Tonio Fajardo Work Phone: [facility] 07-05-2022 14:00-0500 Body mass index (BMI) [Ratio] 29 kg/m2 Dr. Tonio Fajardo Work Phone: [facility] 07-05-2022 14:00-0500 Body temperature 96.9 [degF] Dr. Tonio Fajardo Work Phone: [facility] 07-05-2022 14:00-0500 Body weight 81.[address] Tonio Fajardo Work Phone: [facility] 07-05-2022 14:00-0500 Diastolic blood pressure 63 mm[Hg] Dr. Tonio Fajardo Work Phone: [facility] 07-05-2022 14:00-0500 Heart rate 66 /min Dr. Tonio Fajardo Work Phone: [facility] 07-05-2022 14:00-0500 Respiratory rate 16 /min Dr. Tonio Fajardo Work Phone: [facility] 07-05-2022 14:00-0500 SaO2% (BldA) [Mass fraction] 97 % Dr. Tonio Fajardo Work Phone: [facility] 07-05-2022 14:00-0500 Systolic blood pressure 156 mm[Hg] Dr. Tonio Fajardo Work Phone: [facility] 06-28-2022 14:11-0500 Body mass index (BMI) [Ratio] 29.6 kg/m2 Dr. Tonio Fajardo Work Phone: [facility] 06-28-2022 14:11-0500 Body temperature 97.1 [degF] Dr. Tonio Fajardo Work Phone: [facility] 06-28-2022 14:11-0500 Body weight 83.[address] Tonio Fajardo Work Phone: [facility] 06-28-2022 14:11-0500 Diastolic blood pressure 58 mm[Hg] Dr. Tonio Fajardo Work Phone: [facility] 06-28-2022 14:11-0500 Heart rate 77 /min Dr. Tonio Fajardo Work Phone: [facility] 06-28-2022 14:11-0500 Respiratory rate 16 /min Dr. Tonio Fajardo Work Phone: [facility] 06-28-2022 14:11-0500 SaO2% (BldA) [Mass fraction] 89 % Dr. Tonio Fajardo Work Phone: [facility] 06-28-2022 14:11-0500 Systolic blood pressure 124 mm[Hg] Dr. Tonio Fajardo Work Phone: [facility] 06-21-2022 13:57-0400 Body mass index (BMI) [Ratio] 29.8 kg/m2 Dr. Tonio Fajardo Work Phone: [facility] 06-21-2022 13:57-0400 Body temperature 97 [degF] Dr. Tonio Fajardo Work Phone: [facility] 06-21-2022 13:57-0400 Body weight 83.[address] Tonio Fajardo Work Phone: [facility] 06-21-2022 13:57-0400 Diastolic blood pressure 88 mm[Hg] Dr. Tonio Fajardo Work Phone: [facility] 06-21-2022 13:57-0400 Heart rate 70 /min Dr. Tonio Fajardo Work Phone: [facility] 06-21-2022 13:57-0400 Respiratory rate 18 /min Dr. Tonio Fajardo Work Phone: [facility] 06-21-2022 13:57-0400 SaO2% (BldA) [Mass fraction] 94 % Dr. Tonio Fajardo Work Phone: [facility] 06-21-2022 13:57-0400 Systolic blood pressure 139 mm[Hg] Dr. Tonio Fajardo Work Phone: [facility] 06-14-2022 13:55-0400 Body height 167.[address] Tonio Fajardo Work Phone: [facility] Work Phone: 06-14-2022 13:53-0400 Body mass index (BMI) [Ratio] 29.5 kg/m2 Dr. Tonio Fajardo Work Phone: [facility] 06-14-2022 13:53-0400 Body temperature 97 [degF] Dr. Tonio Fajardo Work Phone: [facility] 06-14-2022 13:53-0400 Body weight 83.[address] Tonio Fajardo Work Phone: [facility] 06-14-2022 13:53-0400 Diastolic blood pressure 61 mm[Hg] Dr. Tonio Fajardo Work Phone: [facility] 06-14-2022 13:53-0400 Heart rate 66 /min Dr. Tonio Fajardo Work Phone: [facility] 06-14-2022 13:53-0400 Respiratory rate 16 /min Dr. Tonio Fajardo Work Phone: [facility] 06-14-2022 13:53-0400 SaO2% (BldA) [Mass fraction] 94 % Dr. Tonio Fajardo Work Phone: [facility] 06-14-2022 13:53-0400 Systolic blood pressure 137 mm[Hg] Dr. Tonio Fajardo Work Phone: [facility] 06-12-2022 10:32-0400 Body temperature 97.3 [degF] Dr. Tonio Fajardo Work Phone: [facility] 06-12-2022 10:32-0400 Diastolic blood pressure 63 mm[Hg] Dr. Tonio Fajardo Work Phone: [facility] 06-12-2022 10:32-0400 Heart rate 59 /min Dr. Tonio Fajardo Work Phone: [facility] 06-12-2022 10:32-0400 Respiratory rate 18 /min Dr. Tonio Fajardo Work Phone: [facility] 06-12-2022 10:32-0400 Systolic blood pressure 149 mm[Hg] Dr. Tonio Fajardo Work Phone: [facility] 05-30-2022 14:08-0400 Body height 167.[address] Tonio Fajardo Work Phone: [facility] Work Phone: 05-30-2022 14:05-0400 Body mass index (BMI) [Ratio] 29.7 kg/m2 Dr. Tonio Fajardo Work Phone: [facility] 05-30-2022 14:05-0400 Body temperature 97 [degF] Dr. Tonio Fajardo Work Phone: [facility] 05-30-2022 14:05-0400 Body weight 83.[address] Tonio Fajardo Work Phone: [facility] 05-30-2022 14:05-0400 Diastolic blood pressure 64 mm[Hg] Dr. Tonio Fajardo Work Phone: [facility] 05-30-2022 14:05-0400 Heart rate 65 /min Dr. Tonio Fajardo Work Phone: [facility] 05-30-2022 14:05-0400 Respiratory rate 18 /min Dr. Tonio Fajardo Work Phone: [facility] 05-30-2022 14:05-0400 SaO2% (BldA) [Mass fraction] 95 % Dr. Tonio Fajardo Work Phone: [facility] 05-30-2022 14:05-0400 Systolic blood pressure 145 mm[Hg] Dr. Tonio Fajardo Work Phone: [facility] 05-29-2022 14:48-0400 Body temperature 97.6 [degF] Dr. Tonio Fajardo Work Phone: [facility] Work Phone: 05-29-2022 14:48-0400 Diastolic blood pressure 51 mm[Hg] Dr. Tonio Fajardo Work Phone: [facility] Work Phone: 05-29-2022 14:48-0400 Heart rate 75 /min Dr. Tonio Fajardo Work Phone: [facility] Work Phone: 05-29-2022 14:48-0400 Systolic blood pressure 158 mm[Hg] Dr. Tonio Fajardo Work Phone: [facility] Work Phone: 05-24-2022 14:31-0400 Body height 167.[address] Tonio Fajardo Work Phone: [facility] Work Phone: 05-24-2022 14:22-0400 Body mass index (BMI) [Ratio] 29.7 kg/m2 Dr. Tonio Fajardo Work Phone: [facility] 05-24-2022 14:22-0400 Body temperature 98.2 [degF] Dr. Tonio Fajardo Work Phone: [facility] 05-24-2022 14:22-0400 Body weight 83.[address] Tonio Fajardo Work Phone: [facility] 05-24-2022 14:22-0400 Diastolic blood pressure 74 mm[Hg] Dr. Tonio Fajardo Work Phone: [facility] 05-24-2022 14:22-0400 Heart rate 74 /min Dr. Tonio Fajardo Work Phone: [facility] 05-24-2022 14:22-0400 Respiratory rate 15 /min Dr. Tonio Fajardo Work Phone: [facility] 05-24-2022 14:22-0400 SaO2% (BldA) [Mass fraction] 96 % Dr. Tonio Fajardo Work Phone: [facility] 05-24-2022 14:22-0400 Systolic blood pressure 135 mm[Hg] Dr. Tonio Fajardo Work Phone: [facility] 05-24-2022 13:26-0400 Body temperature 96.7 [degF] Dr. Tonio Fajardo Work Phone: [facility] Work Phone: 05-24-2022 13:26-0400 Diastolic blood pressure 57 mm[Hg] Dr. Tonio Fajardo Work Phone: [facility] Work Phone: 05-24-2022 13:26-0400 Heart rate 81 /min Dr. Tonio Fajardo Work Phone: [facility] Work Phone: 05-24-2022 13:26-0400 Respiratory rate 18 /min Dr. Tonio Fajardo Work Phone: [facility] Work Phone: 05-24-2022 13:26-0400 Systolic blood pressure 141 mm[Hg] Dr. Tonio Fajardo Work Phone: [facility] Work Phone: 05-17-2022 15:07-0400 Body temperature 97.5 [degF] Dr. Tonio Fajardo Work Phone: [facility] Work Phone: 05-17-2022 15:07-0400 Diastolic blood pressure 63 mm[Hg] Dr. Tonio Fajardo Work Phone: [facility] Work Phone: 05-17-2022 15:07-0400 Heart rate 71 /min Dr. Tonio Fajardo Work Phone: [facility] Work Phone: 05-17-2022 15:07-0400 Respiratory rate 20 /min Dr. Tonio Fajardo Work Phone: [facility] Work Phone: 05-17-2022 15:07-0400 Systolic blood pressure 142 mm[Hg] Dr. Tonio Fajardo Work Phone: [facility] Work Phone: 05-11-2022 16:01-0400 Body height 167.[address] Tonio Fajardo Work Phone: [facility] Work Phone: 05-11-2022 15:54-0400 Body mass index (BMI) [Ratio] 29.4 kg/m2 Dr. Tonio Fajardo Work Phone: [facility] Work Phone: 05-11-2022 15:54-0400 Body temperature 98.4 [degF] Dr. Tonio Fajardo Work Phone: [facility] Work Phone: 05-11-2022 15:54-0400 Body weight 82.[address] Tonio Fajardo Work Phone: [facility] Work Phone: 05-11-2022 15:54-0400 Diastolic blood pressure 67 mm[Hg] Dr. Tonio Fajardo Work Phone: [facility] Work Phone: 05-11-2022 15:54-0400 Heart rate 63 /min Dr. Tonio Fajardo Work Phone: [facility] Work Phone: 05-11-2022 15:54-0400 Respiratory rate 16 /min Dr. Tonio Fajardo Work Phone: [facility] Work Phone: 05-11-2022 15:54-0400 SaO2% (BldA) [Mass fraction] 96 % Dr. Tonio Fajardo Work Phone: [facility] Work Phone: 05-11-2022 15:54-0400 Systolic blood pressure 100 mm[Hg] Dr. Tonio Fajardo Work Phone: [facility] Work Phone: 05-11-2022 08:32-0400 Body mass index (BMI) [Ratio] 29.4 kg/m2 Dr. Tonio Fajardo Work Phone: [facility] Work Phone: 05-11-2022 08:32-0400 Body temperature 97.2 [degF] Dr. Tonio Fajardo Work Phone: [facility] Work Phone: 05-11-2022 08:32-0400 Body weight 82.[address] Tonio Fajardo Work Phone: [facility] Work Phone: 05-11-2022 08:32-0400 Diastolic blood pressure 62 mm[Hg] Dr. Tonio Fajardo Work Phone: [facility] Work Phone: 05-11-2022 08:32-0400 Heart rate 73 /min Dr. Tonio Fajardo Work Phone: [facility] Work Phone: 05-11-2022 08:32-0400 Respiratory rate 20 /min Dr. Tonio Fajardo Work Phone: [facility] Work Phone: 05-11-2022 08:32-0400 SaO2% (BldA) [Mass fraction] 96 % Dr. Tonio Fajardo Work Phone: [facility] Work Phone: 05-11-2022 08:32-0400 Systolic blood pressure 145 mm[Hg] Dr. Tonio Fajardo Work Phone: [facility] Work Phone: 04-28-2022 11:40-0400 Body temperature 97.4 [degF] Dr. Tonio Fajardo Work Phone: [facility] Work Phone: 04-28-2022 11:40-0400 Diastolic blood pressure 46 mm[Hg] Dr. Tonio Fajardo Work Phone: [facility] Work Phone: 04-28-2022 11:40-0400 Heart rate 66 /min Dr. Tonio Fajardo Work Phone: [facility] Work Phone: 04-28-2022 11:40-0400 Respiratory rate 20 /min Dr. Tonio Fajardo Work Phone: [facility] Work Phone: 04-28-2022 11:40-0400 SaO2% (BldA) [Mass fraction] 96 % Dr. Tonio Fajardo Work Phone: [facility] Work Phone: 04-28-2022 11:40-0400 Systolic blood pressure 138 mm[Hg] Dr. Tonio Fajardo Work Phone: [facility] Work Phone: 04-28-2022 09:44-0400 Inhaled oxygen flow rate 2 L/min Dr. Tonio Fajardo Work Phone: [facility] Work Phone: 04-28-2022 08:15-0400 Body height 167.[address] Tonio Fajardo Work Phone: [facility] Work Phone: 04-28-2022 08:15-0400 Body mass index (BMI) [Ratio] 28 kg/m2 Dr. Tonio Fajardo Work Phone: [facility] Work Phone: 04-28-2022 08:15-0400 Body weight 78.[address] Tonio Fajardo Work Phone: [facility] Work Phone: 04-26-2022 13:47-0400 Body temperature 97 [degF] Dr. Tonio Fajardo Work Phone: [facility] Work Phone: 04-26-2022 13:47-0400 Diastolic blood pressure 33 mm[Hg] Dr. Tonio Fajardo Work Phone: [facility] Work Phone: 04-26-2022 13:47-0400 Heart rate 80 /min Dr. Tonio Fajardo Work Phone: [facility] Work Phone: 04-26-2022 13:47-0400 Respiratory rate 18 /min Dr. Tonio Fajardo Work Phone: [facility] Work Phone: 04-26-2022 13:47-0400 Systolic blood pressure 118 mm[Hg] Dr. Tnoio Fajardo Work Phone: [facility] Work Phone: 04-14-2022 11:11-0400 Body height 167.[address] Tonio Fajardo Work Phone: [facility] Work Phone: 04-14-2022 11:11-0400 Body mass index (BMI) [Ratio] 30.7 kg/m2 Dr. Tonio Fajardo Work Phone: [facility] Work Phone: 04-14-2022 11:11-0400 Body temperature 95.8 [degF] Dr. Tonio Fajardo Work Phone: [facility] Work Phone: 04-14-2022 11:11-0400 Body weight 86.[address] Tonio Fajardo Work Phone: [facility] Work Phone: 04-14-2022 11:11-0400 Diastolic blood pressure 68 mm[Hg] Dr. Tonio Fajardo Work Phone: [facility] Work Phone: 04-14-2022 11:11-0400 Heart rate 34 /min Dr. Tonio Fajardo Work Phone: [facility] Work Phone: 04-14-2022 11:11-0400 Respiratory rate 16 /min Dr. Tonio Fajardo Work Phone: [facility] Work Phone: 04-14-2022 11:11-0400 SaO2% (BldA) [Mass fraction] 91 % Dr. Tonio Fajardo Work Phone: [facility] Work Phone: 04-14-2022 11:11-0400 Systolic blood pressure 163 mm[Hg] Dr. Tonio Fajardo Work Phone: [facility] Work Phone: 04-14-2022 10:36-0400 Body temperature 96.7 [degF] Dr. Tonio Fajardo Work Phone: [facility] Work Phone: 04-14-2022 10:36-0400 Diastolic blood pressure 71 mm[Hg] Dr. Tonio Fajardo Work Phone: [facility] Work Phone: 04-14-2022 10:36-0400 Heart rate 64 /min Dr. Tonio Fajardo Work Phone: [facility] Work Phone: 04-14-2022 10:36-0400 Respiratory rate 23 /min Dr. Tonio Fajardo Work Phone: [facility] Work Phone: 04-14-2022 10:36-0400 SaO2% (BldA) [Mass fraction] 94 % Dr. Tonio Fajardo Work Phone: [facility] Work Phone: 04-14-2022 10:36-0400 Systolic blood pressure 153 mm[Hg] Dr. Tonio Fajardo Work Phone: [facility] Work Phone: 04-14-2022 08:24-0400 Body mass index (BMI) [Ratio] 30.2 kg/m2 Dr. Tonio Fajardo Work Phone: [facility] Work Phone: 04-14-2022 08:24-0400 Body weight 85.[address] Tonio Fajardo Work Phone: [facility] Work Phone: 04-12-2022 13:50-0400 Body temperature 97.8 [degF] Dr. Tonio Fajardo Work Phone: [facility] Work Phone: 04-12-2022 13:50-0400 Diastolic blood pressure 74 mm[Hg] Dr. Tonio Fajardo Work Phone: [facility] Work Phone: 04-12-2022 13:50-0400 Heart rate 69 /min Dr. Tonio Fajardo Work Phone: [facility] Work Phone: 04-12-2022 13:50-0400 Respiratory rate 18 /min Dr. Tonio Fajardo Work Phone: [facility] Work Phone: 04-12-2022 13:50-0400 Systolic blood pressure 107 mm[Hg] Dr. oTnio Fajardo Work Phone: [facility] Work Phone: 04-05-2022 13:34-0400 Body temperature 101.61 [degF] Jessie Rodriguez APRN.CNP Work Phone: [facility] 04-05-2022 13:34-0400 Body weight 87.09 kg Jessie Praisler-Wood [employer].DOCUMENT DESIGN SPECIALIST Work Phone: [facility] 04-05-2022 13:34-0400 Diastolic blood pressure 76 mm[Hg] Jessie Praisler-[employer] STEEL BUFFER.DOCUMENT DESIGN SPECIALIST Work Phone: [facility] 04-05-2022 13:34-0400 Heart rate 76 /min Jessie Praisler-[employer] BUFFER.DOCUMENT DESIGN SPECIALIST Work Phone: [facility] 04-05-2022 13:34-0400 Respiratory rate 16 /min Jessie Praisler-[employer] BUFFER.DOCUMENT DESIGN SPECIALIST Work Phone: [facility] 04-05-2022 13:34-0400 SaO2% (BldA) [Mass fraction] 94 % Jessie Praisler-[employer] STEEL BUFFER.DOCUMENT DESIGN SPECIALIST Work Phone: [facility] 04-05-2022 13:34-0400 Systolic blood pressure 122 mm[Hg] Jessie Praisler-[employer] BUFFER.DOCUMENT DESIGN SPECIALIST Work Phone: [facility] 03-01-2022 13:16-0400 Body temperature 97.6 [degF] Dr. Tonio Fajardo Work Phone: [facility] Work Phone: 03-01-2022 13:16-0400 Diastolic blood pressure 73 mm[Hg] Dr. Tonio Fajardo Work Phone: [facility] Work Phone: 03-01-2022 13:16-0400 Heart rate 70 /min Dr. Tonio Fajardo Work Phone: [facility] Work Phone: 03-01-2022 13:16-0400 Respiratory rate 18 /min Dr. Tonio Fajardo Work Phone: [facility] Work Phone: 03-01-2022 13:16-0400 Systolic blood pressure 141 mm[Hg] Dr. Tonio Fajardo Work Phone: [facility] Work Phone: 02-08-2022 13:06-0400 Body temperature 98.1 [degF] Dr. Tonio Fajardo Work Phone: [facility] Work Phone: 02-08-2022 13:06-0400 Diastolic blood pressure 63 mm[Hg] Dr. Tonio Fajardo Work Phone: [facility] Work Phone: 02-08-2022 13:06-0400 Heart rate 83 /min Dr. Tonio Fajardo Work Phone: [facility] Work Phone: 02-08-2022 13:06-0400 Respiratory rate 20 /min Dr. Tonio Fajardo Work Phone: [facility] Work Phone: 02-08-2022 13:06-0400 Systolic blood pressure 131 mm[Hg] Dr. Tonio Fajardo Work Phone: [facility] Work Phone: 01-17-2022 10:56-0400 Body height 167.[address] Tonio Fajardo Work Phone: [facility] Work Phone: 01-17-2022 10:56-0400 Body mass index (BMI) [Ratio] 31.9 kg/m2 Dr. Tonio Fajardo Work Phone: [facility] Work Phone: 01-17-2022 10:56-0400 Body weight 89.[address] Tonio Fajardo Work Phone: [facility] Work Phone: 01-17-2022 10:56-0400 Diastolic blood pressure 44 mm[Hg] Dr. Tonio Fajardo Work Phone: [facility] Work Phone: 01-17-2022 10:56-0400 Heart rate 64 /min Dr. Tonio Fajardo Work Phone: [facility] Work Phone: 01-17-2022 10:56-0400 Respiratory rate 22 /min Dr. Tonio Fajardo Work Phone: [facility] Work Phone: 01-17-2022 10:56-0400 SaO2% (BldA) [Mass fraction] 95 % Dr. Tonio Fajardo Work Phone: [facility] Work Phone: 01-17-2022 10:56-0400 Systolic blood pressure 101 mm[Hg] Dr. Tonio Fajardo Work Phone: [facility] Work Phone: 01-17-2022 10:56-0400 Body height 167.[address] Tonio Fajardo Work Phone: [facility] Work Phone: 01-17-2022 10:56-0400 Body mass index (BMI) [Ratio] 31.9 kg/m2 Dr. Tonio Fajardo Work Phone: [facility] Work Phone: 01-17-2022 10:56-0400 Body weight 89.[address] Tonio Fajardo Work Phone: [facility] Work Phone: 01-17-2022 10:56-0400 Diastolic blood pressure 44 mm[Hg] Dr. Tonio Fajardo Work Phone: [facility] Work Phone: 01-17-2022 10:56-0400 Heart rate 64 /min Dr. Tonio Fajardo Work Phone: [facility] Work Phone: 01-17-2022 10:56-0400 Respiratory rate 22 /min Dr. Tonio Fajardo Work Phone: [facility] Work Phone: 01-17-2022 10:56-0400 SaO2% (BldA) [Mass fraction] 95 % Dr. Tonio Fajardo Work Phone: [facility] Work Phone: 01-17-2022 10:56-0400 Systolic blood pressure 101 mm[Hg] Dr. Tonio Fajardo Work Phone: [facility] Work Phone: 01-04-2022 12:59-0400 Body temperature 96.4 [degF] Dr. Tonio Fajardo Work Phone: [facility] Work Phone: 01-04-2022 12:59-0400 Diastolic blood pressure 64 mm[Hg] Dr. Tonio Fajardo Work Phone: [facility] Work Phone: 01-04-2022 12:59-0400 Heart rate 70 /min Dr. Tonio Fajardo Work Phone: [facility] Work Phone: 01-04-2022 12:59-0400 Respiratory rate 16 /min Dr. Tonio Fajardo Work Phone: [facility] Work Phone: 01-04-2022 12:59-0400 Systolic blood pressure 135 mm[Hg] Dr. Tonio Fajardo Work Phone: [facility] Work Phone: 12-21-2021 13:10-0400 Body temperature 97 [degF] [facility] Work Phone: 12-21-2021 13:10-0400 Diastolic blood pressure 62 mm[Hg] [facility] Work Phone: 12-21-2021 13:10-0400 Heart rate 88 /min [facility] Work Phone: 12-21-2021 13:10-0400 Systolic blood pressure 173 mm[Hg] [facility] Work Phone: 12-18-2021 00:38-0400 Respiratory rate 16 /min [facility] Work Phone: 11-29-2021 13:03-0400 Body temperature 97.4 [degF] [facility] Work Phone: 11-29-2021 13:03-0400 Diastolic blood pressure 43 mm[Hg] [facility] Work Phone: 11-29-2021 13:03-0400 Heart rate 69 /min [facility] Work Phone: 11-29-2021 13:03-0400 Respiratory rate 16 /min [facility] Work Phone: 11-29-2021 13:03-0400 Systolic blood pressure 134 mm[Hg] [facility] Work Phone: 11-09-2021 13:07-0400 Body temperature 97 [degF] [facility] Work Phone: 11-09-2021 13:07-0400 Diastolic blood pressure 41 mm[Hg] [facility] Work Phone: 11-09-2021 13:07-0400 Heart rate 73 /min [facility] Work Phone: 11-09-2021 13:07-0400 Respiratory rate 18 /min [facility] Work Phone: 11-09-2021 13:07-0400 Systolic blood pressure 126 mm[Hg] [facility] Work Phone: Encounters Encounter Date Encounter Type Care Provider Facility Start: 04-02-2025 Patient encounter procedure Carmelina Parra -[facility] Start: 04-02-2025 ambulatory Tonio Fajardo Facility: [facility] Start: 03-27-2025 End: 03-27-[address] Tonio Fajardo DO Work Phone: -Pulmonary Services/Neurology Start: 03-27-2025 End: 03-27-2025 Patient encounter procedure Leslie DAMIAN -Pulmonary Services/Neurology Work Phone: Start: 03-27-2025 End: 03-27-2025 ambulatory Tonio Fajardo Facility:[facility] Start: 03-18-2025 End: 03-18-[address] Tonio Fajardo DO Work Phone: -Laboratory [facility] Start: 03-18-2025 End: 03-18-[address] [facility] Start: 03-17-2025 End: 03-17-2025 Patient encounter procedure Leslie Arriaga PA -[facility] Work Phone: Start: 03-17-2025 End: 03-18-[address] Tonio Fajardo DO Work Phone: -[facility] Start: 03-15-2025 End: 03-15-2025 Emergency department patient visit Dr. Tonio Fajardo DO Work Phone: -Emergency Department Work Phone: Start: 03-09-2025 Non-patient / Non-visit Dr. Deric Lantigua MD -[facility] Work Phone: Start: 03-09-2025 Non-patient / Non-visit Dr. Willian Glaser MD -[facility] Start: 03-08-2025 Non-patient / Non-visit Dr. Marjorie castellano MD [facility] Start: 03-07-2025 Non-patient / Non-visit Dr. Deric Lantigua MD -[facility] Work Phone: Start: 03-06-2025 Non-patient / Non-visit Dr. Deric Lantigua MD -[facility] Work Phone: Start: 03-06-2025 Non-patient / Non-visit Dr. Marjorie castellano MD -[facility] Start: 03-05-2025 ambulatory Marjorie Green Facility:[facility] Start: 03-05-2025 Non-patient / Non-visit Dr. Marjorie castellano MD -[facility] Start: 03-05-2025 Non-patient / Non-visit Dr. Deric Lantigua MD -[facility] Work Phone: Start: 03-04-2025 ambulatory [facility] Facility: [facility] Start: 03-04-2025 End: 03-09-2025 Evaluation and management of inpatient Dr. Nicola Lindsey DO -Progressive Care Unit Work Phone: Start: 11-06-[address] Russ Zamora MD -[facility] Start: 11-06-2024 End: 11-06-[address] Russ Zamora MD [facility] Work Phone: Start: 11-06-2024 End: 11-06-2024 ambulatory [facility] Facility:[facility] Start: 10-30-2024 End: 10-30-[address] Tonio Fajardo DO Work Phone: [facility] Work Phone: Start: 10-30-2024 End: 10-30-[address] Russ Zamora MD -[facility] Work Phone: Start: 10-30-2024 End: 10-30-2024 ambulatory Russ Zamora Facility:[facility] Start: 10-23-2024 End: 10-23-2024 Patient encounter procedure Lorie Mart [employer]KERAlexC -[facility] Work Phone: Start: 10-23-2024 End: 10-23-2024 ambulatory [facility] Facility:[facility] Start: 10-20-2024 End: 10-20-[address] Tonio Fajardo DO Work Phone: [facility] Work Phone: Start: 10-20-2024 End: 10-20-[address] Tonio Fajardo DO -[facility] Start: 10-20-2024 End: 10-20-2024 ambulatory Tonio Fajardo Facility:[facility] Start: 10-17-2024 ambulatory Lorie Mart [employer] Fac ility:[facility] Start: 10-17-2024 Non-patient / Non-visit Dr. Tyrell zuniga DO -[facility] Start: 10-16-2024 End: 10-16-[address] Tonio Fajardo DO Work Phone: [facility] Work Phone: Start: 10-16-2024 End: 10-16-2024 Patient encounter procedure Lorie Mart [employer]KER-C -Pulmonary Services/Neurology Work Phone: Start: 10-16-2024 End: 10-16-2024 ambulatory Lorie Mart NP Facility:[facility] Start: 09-25-2024 End: 09-25-2024 Patient encounter procedure Leslie Arriaga PA -[facility] Work Phone: Start: 09-25-2024 End: 09-25-2024 ambulatory Tonio Fajardo Facility:[facility] Start: 09-25-2024 End: 09-25-2024 ambulatory Leslie DAMIAN Facility:[facility] Start: 07-03-2024 End: 07-03-[address] Joaquim Suárez DPM -Laboratory, Specimen Work Phone: Start: 07-03-2024 End: 07-03-2024 ambulatory Joaquim Suárez Facility:[facility] Start: 06-17-2024 End: 06-17-2024 ambulatory Tonio Fajardo Facility:[facility] Start: 05-05-2024 End: 05-05-2024 ambulatory Tonio Fajardo Facility:[facility] Start: 04-28-2024 End: 04-28-2024 ambulatory [facility] Facility:[facility] Start: 12-24-2023 End: 12-24-[address] Tonio Fajardo Work Phone: [facility] Work Phone: Start: 12-24-2023 End: 12-24-[address] Tonio Fajardo Work Phone: [facility]-Laboratory, Specimen Work Phone: Start: 11-12-2023 End: 11-12-[address] Tonio Fajardo Work Phone: [facility] Work Phone: Start: 11-06-[address] Tonio Fajardo Work Phone: [facility] Start: 10-31-2023 End: 10-31-[address] Tonio Fajardo Work Phone: [facility] Work Phone: Start: 10-18-2023 End: 10-18-[address] Tonio Fajardo Work Phone: [facility] Work Phone: Start: 10-12-2023 End: 10-12-[address] Tonio Fajardo Work Phone: [facility] Work Phone: Start: 10-12-2023 End: 10-12-[address] Tonio Fajardo Work Phone: [facility] Work Phone: Start: 08-29-2023 End: 08-29-[address] Tonio Fajardo Work Phone: [facility] Work Phone: Start: 08-22-2023 Non-patient / Non-visit Dr. Min Fajardo Work Phone: [facility] Start: 08-22-2023 End: 08-22-[address] Tonio Fajardo Work Phone: [facility]-Cardiovascular Services Work Phone: Start: 07-26-2023 End: 07-26-[address] Tonio Fajardo Work Phone: [facility] Work Phone: Start: 07-26-2023 End: 07-26-[address] Tonio Fajardo Work Phone: [facility] Work Phone: Start: 07-25-2023 End: 07-25-[address] Tonio Fajardo Work Phone: [facility]-Pulmonary Medicine [facility] Work Phone: Start: 06-22-2023 End: 06-22-[address] Tonio Fajardo Work Phone: [facility] Work Phone: Start: 06-22-2023 End: 06-22-[address] Tonio Fajardo Work Phone: [facility]-Laboratory, Specimen Work Phone: Start: 06-08-2023 End: 06-08-2023 Admission to same day surgery center Dr. Tonio Fajardo Work Phone: [facility]-Surgical Day Care Start: 06-08-2023 End: 06-08-[address] Tonio Fajardo Work Phone: [facility] Work Phone: Start: 05-02-2023 End: 05-19-[address] Tonio Fajardo Work Phone: [facility]-Wound Healing Center Work Phone: Start: 04-20-2023 Non-patient / Non-visit Dr. Min Fajardo Work Phone: [facility] Start: 04-18-2023 End: 04-19-[address] Tonio Fajardo Work Phone: [facility] Work Phone: Start: 04-18-2023 End: 04-19-[address] Ton[facility]ajardo [facility] Work Phone: Start: 04-17-[address] Tonio Fajardo Work Phone: [facility] Start: 04-17-2023 End: 04-17-[address] Tonio Fajardo Work Phone: [facility] Work Phone: Start: 04-10-2023 End: 04-10-[address] Tonio Fajardo Work Phone: [facility] Work Phone: Start: 04-10-2023 End: 04-10-[address] Tonio Fajardo Work Phone: [facility] Work Phone: Start: 04-02-2023 Non-patient / Non-visit Dr. Min Fajardo Work Phone: [facility] Start: 04-02-[address] Tonio Fajardo Work Phone: [facility] Work Phone: Start: 03-19-2023 Non-patient / Non-visit Dr. Min Fajardo Work Phone: [facility] Start: 03-19-2023 End: 03-19-[address] Tonio Fajardo Work Phone: [facility] Work Phone: Start: 03-19-2023 End: 03-19-[address] Tonio Fajardo [facility] Work Phone: Start: 03-05-2023 Non-patient / Non-visit Dr. Min Fajardo Work Phone: [facility] Start: 02-23-2023 End: 02-23-[address] Tonio Fajardo Work Phone: [facility] Work Phone: Start: 02-19-2023 Non-patient / Non-visit Dr. Min Fajardo Work Phone: [facility] Start: 02-05-2023 Non-patient / Non-visit Dr. Min Fajardo Work Phone: [facility] Start: 02-05-2023 End: 02-16-[address] Tonio Fajardo Work Phone: [facility] Work Phone: Start: 02-05-2023 End: 02-16-[address] Tonio Fajardo [facility] Work Phone: Start: 01-22-2023 Non-patient / Non-visit Dr. Min Fajardo Work Phone: [facility] Start: 01-08-2023 Non-patient / Non-visit Dr. Min Fajardo Work Phone: [facility] Start: 01-08-2023 End: 01-17-[address] Tonio Fajardo Work Phone: [facility] Work Phone: Start: 01-08-2023 End: 01-17-[address] Tonio Fajardo Work Phone: [facility] Start: 12-30-2022 End: 12-31-2022 Emergency department patient visit Dr. Tonio Fajardo Work Phone: [facility]-Emergency Department Start: 12-25-2022 Non-patient / Non-visit Dr. Min Fajardo Work Phone: [facility] Start: 12-25-[address] Tonio Fajardo Work [facility] Start: 12-18-2022 Non-patient / Non-visit Dr. Min Fajardo Work Phone: [facility] Start: 12-12-2022 End: 12-12-[address] Tonio Fajardo Work Phone: [facility]-Pulmonary Medicine [facility] Start: 12-11-2022 Non-patient / Non-visit Dr. Min Fajardo Work Phone: [facility] Start: 12-11-2022 End: 12-17-[address] Tonio Fajardo Work Phone: [facility] Work Phone: Start: 12-11-2022 End: 12-17-[address] Tonio Fajardo Work Phone: [facility] Start: 12-06-2022 Non-patient / Non-visit Dr. Min Fajardo Work Phone: [facility] Start: 11-27-2022 Non-patient / Non-visit Dr. Min Fajardo Work Phone: [facility] Start: 11-20-2022 Non-patient / Non-visit Dr. Min Fajardo Work Phone: [facility] Start: 11-08-2022 Non-patient / Non-visit Dr. Min Fajardo Work Phone: [facility] Start: 11-08-2022 End: 11-17-[address] Tonio Fajardo [facility] Start: 10-30-2022 Non-patient / Non-visit Dr. Min Fajardo Work Phone: [facility] Start: 10-23-2022 Non-patient / Non-visit Dr. Min Fajardo Work Phone: [facility] Start: 10-18-2022 Non-patient / Non-visit Dr. Min Fajardo Work Phone: [facility] Start: 10-16-[address] Tonio Fajardo Work Phone: [facility] Start: 10-16-2022 End: 10-16-[address] Tonio Fajardo Work Phone: [facility] Start: 10-09-2022 Non-patient / Non-visit Dr. Min Fajardo Work Phone: [facility] Start: 10-09-2022 End: 10-09-[address] Tonio Fajardo Work Phone: [facility] Start: 10-09-2022 End: 10-17-[address] Tonio Fajardo Work Phone: [facility] Work Phone: Start: 10-09-2022 End: 10-17-[address] Tonio Fajardo [facility] Start: 10-09-[address] Tonio Fajardo Work Phone: [facility] Start: 10-02-2022 Non-patient / Non-visit Dr. Min Fajardo Work Phone: [facility] Start: 10-02-2022 End: 10-02-[address] Tonio Fajardo Work Phone: [facility] Start: 09-25-2022 Non-patient / Non-visit Dr. Min Fajardo Work Phone: [facility] Start: 09-18-2022 Non-patient / Non-visit Dr. Min Fajardo Work Phone: [facility] Start: 09-18-2022 End: 09-19-[address] Tonio Fajardo Work Phone: [facility] Work Phone: Start: 09-18-2022 End: 09-19-[address] Tonio Fajardo Work Phone: [facility] Start: 08-29-2022 Non-patient / Non-visit Dr. Min Fajardo Work Phone: [facility] Start: 08-15-2022 Non-patient / Non-visit Dr. Min Fajardo Work Phone: [facility] Start: 08-15-2022 End: 08-19-[address] Tonio Fajardo Work Phone: [facility] Work Phone: Start: 08-15-2022 End: 08-19-[address] Tonio Fajardo Work Phone: [facility] Start: 08-08-2022 End: 08-08-[address] Tonio Fajardo Work Phone: [facility] Start: 08-01-2022 Non-patient / Non-visit Dr. Min Fajardo Work Phone: [facility] Start: 07-28-2022 Telephone encounter Jessie Parra [facility] Work Phone: [facility] Comment on above: Patient Update Start: 07-19-2022 End: 07-19-[address] Tonio Fajardo Work Phone: [facility] Start: 07-18-2022 Non-patient / Non-visit Dr. Min Fajardo Work Phone: [facility] Start: 07-18-2022 End: 07-19-[address] Tonio Fajardo Work Phone: [facility] Work Phone: Start: 07-18-2022 End: 07-19-[address] Tonio Fajardo [facility] Start: 07-17-2022 End: 07-17-[address] Tonio Fajardo Work Phone: [facility] Start: 07-09-[address] Tonio Fajardo Work Phone: [facility]-Radiation Oncology Start: 07-09-2022 Non-patient / Non-visit Dr. Min Fajardo Work Phone: [facility] Start: 07-05-2022 End: 07-05-[address] Tonio Fajardo Work Phone: [facility] Start: 06-28-2022 End: 06-28-[address] Tonio Fajardo Work Phone: [facility] Start: 06-26-2022 Non-patient / Non-visit Dr. Min Fajardo Work Phone: [facility] Start: 06-21-2022 End: 06-21-[address] Tonio Fajardo Work Phone: [facility] Start: 06-19-[address] Tonio Fajardo [facility] Start: 06-14-2022 End: 06-14-[address] Tonio Fajardo Work Phone: [facility] Start: 06-12-2022 Non-patient / Non-visit Dr. Min Fajardo Work Phone: [facility] Start: 06-12-2022 End: 06-19-[address] Tonio Fajardo Work Phone: [facility] Work Phone: Start: 06-12-2022 End: 06-19-[address] Tonio Fajardo [facility] Start: 06-06-2022 Non-patient / Non-visit Dr. Min Fajardo Work Phone: [facility] Start: 06-02-2022 Non-patient / Non-visit Dr. Min Fajardo Work Phone: [facility] Start: 06-02-2022 End: 06-02-[address] Tonio Fajardo Work Phone: [facility] Work Phone: Start: 06-02-2022 End: 06-02-[address] Tonio Fajardo Work Phone: [facility]-Pulmonary Services/Neurology Start: 06-01-2022 Non-patient / Non-visit Dr. Min Fajardo Work Phone: [facility] Start: 06-01-[address] Tonio Fajardo [facility] Start: 05-30-[address] Tonio Fajardo Work Phone: [facility] Start: 05-30-2022 End: 05-30-[address] Tonio Fajardo Work Phone: [facility] Start: 05-29-2022 Non-patient / Non-visit Dr. Min Fajardo Work Phone: [facility] Start: 05-29-[address] Tonio Fajardo [facility] Start: 05-24-2022 End: 05-24-[address] Tonio Fajardo Work Phone: [facility] Start: 05-24-2022 Non-patient / Non-visit Dr. Min Fajardo Work Phone: [facility] Start: 05-24-[address] Tonio Fajardo Work Phone: [facility] Start: 05-22-2022 End: 05-22-[address] Tonio Fajardo Work Phone: [facility] Work Phone: Start: 05-22-2022 End: 05-22-[address] Tonio Fajardo Work Phone: [facility] Start: 05-17-2022 Non-patient / Non-visit Dr. Min Fajardo Work Phone: [facility] Start: 05-17-2022 End: 05-19-[address] Tonio Fajardo Work Phone: [facility] Work Phone: Start: 05-17-2022 End: 05-19-[address] Tonio Fajardo [facility] Start: 05-17-[address] Tonio Fajardo Work Phone: [facility] Start: 05-11-2022 End: 05-11-[address] Tonio Fajardo Work Phone: [facility] Start: 05-11-2022 End: 05-11-[address] Tonio Fajardo [facility] Phone: [facility] Start: 04-28-2022 Non-patient / Non-visit Dr. Min Fajardo Work Phone: [facility] Start: 04-28-2022 End: 04-28-[address] Tonio Fajardo Work Phone: [facility] Work Phone: Start: 04-28-2022 End: 04-28-[address] Tonio Fajardo Work Phone: [facility] Start: 04-26-[address] Tonio Fajardo Work Phone: [facility] Start: 04-14-2022 End: 04-14-[address] Tonio Fajardo Work Phone: [facility] Work Phone: Start: 04-14-2022 End: 04-14-[address] Tonio Fajardo Work Phone: [facility]-Laboratory, OP Pavilion Start: 04-14-2022 End: 04-14-2022 Emergency department patient visit Dr. Tonio Fajardo Work Phone: [facility]-Emergency Department Start: 04-12-2022 End: 04-12-[address] Tonio Fajardo Work Phone: [facility] Work Phone: Start: 04-12-2022 End: 04-12-[address] Tonio Fajardo Work Phone: [facility]-Cat [facility] Start: 04-12-2022 End: 04-19-[address] Tonio Fajardo Work Phone: [facility] Work Phone: Start: 04-12-2022 End: 04-19-[address] Tonio Fajardo Work Phone: [facility] Start: 04-12-[address] Tonio Fajardo Work Phone: [facility] [place] Start: 04-06-2022 Telephone encounter Derek Rivera MD Work Phone: [facility] Comment on above: Results (COVID+) Start: 04-05-2022 End: 04-05-2022 ambulatory TONIO FAJARDO Facility:[facility] Start: 04-05-2022 Telephone encounter Jessie Parra APRN.DOCUMENT DESIGN SPECIALIST Work Phone: [facility] Comment on above: Results Start: 04-05-2022 End: 04-05-2022 Subsequent hospital visit by physician [facility] Work Phone: Radiology Comment on above: Acute cough [R05.1] Start: 04-05-2022 End: 04-05-2022 Patient encounter procedure Jessie Rodriguez APRN.DOCUMENT DESIGN SPECIALIST Work Phone: [facility] Comment on above: Burning with urinati on (Primary Dx); Acute cough; Suspected COVID-19 virus infection Start: 03-01-2022 End: 03-19-[address] Tonio Fajardo Work Phone: [facility] Start: 02-08-2022 End: 02-16-[address] Tonio Fajardo Work Phone: [facility] Start: 01-17-2022 End: 01-17-[address] Tonio Fajardo Work Phone: [facility] Start: 01-04-2022 End: 01-17-[address] Tonio Fajardo Work Phone: [facility] Start: 12-21-2021 Registered Recurring [facility] Start: 12-19-2021 End: 12-19-2021 [facility] Start: 11-29-2021 End: 12-17-2021 Nutrition therapy [facility] Start: 11-09-2021 End: 11-17-2021 Nutrition therapy [facility] Procedures Date Procedure Procedure Detail [...] Phone: Comment on above: [facility] per ordering physician. Start: 12-24-2023 Investigation of [...] exam ches t 2 views Jessie Rodriguez [employer].DOCUMENT DESIGN SPECIALIST Work Phone: Start: 04-05-2022 Urnls dip stick/tabl et rgnt auto w/o microscopy Onelia Cuevas [employer].DOCUMENT DESIGN SPECIALIST Work Phone: Start: 11-02-2021 X-ray of [...] Detail Author Start: 03-27-2025 24 Hour ECG [facility] Start: 03-15-2025 [facility] Start: 03-15-2025 Control nasal hemorr imn anterior simple CONTROL OF NOSEBLEED [facility] Start: 03-09-2025 Referral to service [facility] Start: 03-09-[address] [facility] Start: 03-08-2025 Application of elast ic bandage [facility] Start: 03-07-2025 Introduction of urin dakota catheter [facility] Start: 03-06-2025 Inhalation therapy procedure [facility] Start: 03-05-2025 [facility] Start: 03-05-2025 Care planning and pr oblem solving actions [facility] Start: 03-05-2025 Chest 1 View (Portable) Chest 1 View (Portable) [facility] Start: 03-05-2025 XR Chest Single view [facility] Start: 03-05-2025 Care planning and pr oblem solving actions [facility] Start: 03-04-2025 Following clinical p athway protocol [facility] Start: 03-04-2025 Assessment of risk o f venous thromboembolism [facility] Start: 03-04-2025 Care regimes management [facility] Start: 03-04-2025 Catheterization of vein [facility] Start: 03-04-2025 Insertion of cathete r into peripheral vein [facility] Start: 03-04-2025 Measuring intake and output [facility] Start: 03-04-2025 Notification of physician [facility] Start: 03-04-2025 Oxygen therapy [facility] Start: 03-04-2025 Providing care accor ding to standard [facility] Start: 03-04-2025 Provision of activit y privileges [facility] Start: 03-04-2025 Referral to vision therapist [facility] Start: 03-04-2025 Referral to occupati onal therapist [facility] Start: 03-04-2025 Referral to service [facility] Start: 03-04-2025 End: 03-04-2025 [facility] Start: 03-04-2025 Hospital admission, emergency, from emergency room, medical nature [facility] Start: 03-04-2025 Verification routine [facility] Start: 03-04-2025 Admission procedure [facility] Start: 03-04-2025 Thyroid stimulating hormone measurement [facility] Start: 03-04-2025 [facility] Start: 03-04-2025 Patient referral to dietitian [facility] Start: 04-20-2024 Covid-19 Vaccine ( season) Covid-19 Vaccine ( season) [facility] Start: 04-20-2024 Influenza vaccination Influenza Vacc ine (#1) [facility] Start: 08-20-2023 Advance Directive Discussion Advance Directive Discussion [facility] Start: 06-22-2023 [facility] Start: 06-08-[address] [facility] Start: 06-08-2023 Anes open proc bones lower leg/ankle/foot nos ANESTH LOWER LEG BONE SURG [facility] Start: 06-08-2023 Osteot w/wo lngth shrt/corrj 1st metar INCISION OF METATARSAL [facility] Start: 06-08-2023 Prep site f/s/n/h/f/ g/m/d gt 1st 100 sq cm/1pct WOUND PREP F/N/HF/G [facility] Start: 06-08-2023 Sub grft f/s/n/h/f/g /m/d <100sq cm 1st 25 sq cm SKIN SUB GRAFT FACE/NK/HF/G [facility] Start: 06-08-2023 Fluoroscopic guidance O.R. Fluoro fo r C-Arm [facility] Start: 06-08-2023 Radiography of foot Foot 2 Views [facility] Start: 12-30-2022 [facility] Start: 12-30-2022 End: 12-30-2022 Blood culture [facility] Start: 12-30-2022 End: 12-30-2022 [facility] Start: 10-16-2022 CBC W Auto Different ial panel - Blood [facility] Start: 10-16-2022 Lactate dehydrogenas e measurement [facility] Start: 10-16-2022 End: 10-16-2022 [facility] Start: 07-18-2022 [facility] Work Phone: Start: 05-18-2022 [facility] Work Phone: Start: 05-11-2022 Patient referral [facility] Work Phone: Start: 04-28-2022 CORE NDL BX LNG/MED PERQ CORE NDL BX LNG/MED PERQ [facility] Work Phone: Start: 04-28-2022 Following clinical p athway protocol [facility] Work Phone: Start: 04-28-2022 Catheterization of vein [facility] Work Phone: Start: 04-28-2022 Oxygen therapy [facility] Work Phone: Start: 04-28-[address] [facility] Work Phone: Start: 04-28-2022 Vital signs measurements [facility] Work Phone: Start: 04-20-2022 Influenza vaccination INFLUENZA (#1) [facility] Start: 04-05-2022 End: 04-19-2022 Influenza virus A and B RNA and SARS-CoV-2 (COVID-19) N gene panel - Respiratory specimen by BRYAN with probe detection [facility] Work Phone: Comment on above: Expected: 04/05/2022 , Expires: 04/19/2022 Start: 08-20-2021 ADVANCE DIRECTIVE DISCUSSION ADVANCE DIRECTIVE DISCUSSION [facility] Start: 08-20-2021 DEPRESSION ASSESSMENT DEPRESSION ASS ESSMENT [facility] Start: 05-04-2021 COVID-19 VACCINE (3 - Booster for Moderna series) COVID-19 VACCINE (3 - Booster for Moderna series) [facility] Start: 01-27-2021 COVID-19 VACCINE (3 - Booster for Moderna series) COVID-19 VACCINE (3 - Booster for Moderna series) [facility] Start: 01-15-2020 RSV Vaccine (1 - 1-d ose 75+ series) RSV Vaccine (1 - 1-dose 75+ series) [facility] Start: 12-01-2018 [facility]ABET[facility]CREEN [facility] Start: 12-01-2018 Diabetes Screening Diabetes Screenin g [facility] Start: 2010 Pneumococcal Vaccine : 65+ (1 of 1 - PCV) Pneumococcal Vaccine: 65+ (1 of 1 - PCV) [facility] Start: 2010 PNEUMOCOCCAL: 65+ (1 - PCV) PNEUMOCOCCAL: 65+ (1 - PCV) [facility] Start: 1995 SHINGRIX VACCINE (1 of 2) HEIN GRIX VACCINE (1 of 2) [facility] Start: 01-15-1964 Urine microalbumin profile [facility] Start: 1963 Anxiety Screening Anxiety Screening [facility] Start: 1963 Depression Screening Depression Scre ening [facility] Start: 1963 HEPATITIS C SCREENING HEPATITIS C SC REENING [facility] Start: 1957 Adult depression scr eening assessment [facility] 24 Hour ECG [facility] Alanine aminotransfe rase [Enzymatic activity/volume] in Serum or Plasma [facility] Albumin [Mass/volume ] in Serum or Plasma [facility] Alkaline phosphatase [Enzymatic activity/volume] in Serum or Plasma [facility] Anaerobic Culture Anaerobic Culture [facility] Work Phone: Anion gap measurement [facility] Aspartate aminotrans ferase [Enzymatic activity/volume] in Serum or Plasma [facility] Bacteria identified in Blood by Culture Blood Culture [facility] Bacteria identified in Unspecified specimen by Anaerobe culture [facility] Work Phone: Bacteria identified in Urine by Culture URINE CULTURE Microbiology Routine Burning with urination 04/05/2022 1:58 PM EDT [facility] Work Phone: Bacteria identified in Urine by Culture Urine Culture [facility] Bilirubin, total measurement [facility] BUN/Creatinine ratio [facility] Calcium [Mass/volume ] in Serum or Plasma [facility] Carbon dioxide, tota l [Moles/volume] in Serum or Plasma [facility] CBC W Auto Different ial panel - Blood [facility] Work Phone: CBC W Auto Different ial panel - Blood [facility] CBC W Auto Different ial panel - Blood [facility] Chloride [Moles/volu me] in Serum or Plasma [facility] Creatinine [Moles/vo lume] in Serum or Plasma [facility] CT Chest and Abdomen W contrast IV [facility] CT Chest W contrast IV [facility] Work Phone: CT Chest W contrast IV [facility] Glucose [Mass/volume ] in Serum or Plasma [facility] Hematocrit [Volume Fraction] of Blood [facility] Hemoglobin [Mass/vol ume] in Blood [facility] Hemoglobin A1c/Hemoglobin.total in Blood [facility] Lactate dehydrogenas e measurement [facility] Lactate dehydrogenas e measurement [facility] LDH [facility] Work Phone: Leukocytes [#/volume ] in Blood [facility] Magnesium measurement [facility] Mean corpuscular hemoglobin concentration determination [facility] Mean corpuscular hemoglobin determination [facility] Measurement of renal function [facility] Microbial culture, routine Wound Culture [facility] Work Phone: MR Brain WO and W co ntrast IV [facility] Work Phone: Natriuretic peptide. B prohormone N-Terminal [Mass/volume] in Serum or Plasma [facility] Neutrophil count [facility] Neutrophil percent differential count [facility] Patient Education [facility] Work Phone: Patient referral [facility] Work Phone: Platelets [#/volume] in Blood [facility] Positron emission tomography with computed tomography [facility] Work Phone: Potassium [Moles/vol ume] in Serum or Plasma [facility] Procedure [facility] PT Unspecified body region [facility] Radiation oncology A ND/OR radiotherapy [facility] Work Phone: Radiation oncology A ND/OR radiotherapy [facility] Red blood cell count [facility] Red cell distributio n width determination [facility] Sodium [Moles/volume ] in Serum or Plasma [facility] Total protein measurement [facility] Urea nitrogen [Mass/volume] in Serum or Plasma [facility] Immunizations Immunization Date Immunization Notes Care Provider Fa [facility] 08-03-2014 influenza virus vaccine, unspecified formulation [facility] Work Phone: [facility] 06-20-2013 Influenza virus vaccine [facility] 06-20-2013 Pneumococcal Vaccine [facility] Work Phone: 06-20-2013 pneumococcal vaccine , unspecified formulation Dr. Tonio Fajardo Work Phone: [facility] Payers Date Payer Category Payer Self-pay [id number] 2009 Medicare [id number] 2009 Medicare MEDICARE MEDICAR E A AND B [id number] 2009-Present [phone] [place] [address] Medicare [id number] 2009 [employer] ( and others) [id number] 2009 Unknown FOR LIFE [id number] 2009-Present [phone] [address] [place] [address] Indemnity [id number] Unknown [id number] 2.16.840.1.405488.3.579. 2.462 Unknown [id number] 2.16.840.1.743439.3.579. 2.462 Unknown [id number] 2.16.840.1.455167.3.579. 2.462 Unknown [id number] 2.16.840.1.570659.3.579. 2.462 Unknown [id number] 2.16.840.1.488390.3.579. 2.462 Unknown [id number] 2.16.840.1.838925.3.579. 2.462 Unknown [id number] 2.16.840.1.797154.3.579. 2.462 Unknown [id number] 2.16.840.1.652097.3.579. 2.462 Unknown [id number] 2.16.840.1.043427.3.579. 2.462 Unknown [id number] 2.16.840.1.230045.3.579. 2.462 Unknown [id number] 2.16.840.1.743300.3.579. 2.462 Unknown [id number] 2.16.840.1.733782.3.579. 2.462 Unknown [id number] 2.16.840.1.196027.3.579. 2.462 Unknown [id number] 2.16.840.1.676494.3.579. 2.462 Unknown [id number] 2.16.840.1.641756.3.579. 2.462 Unknown [id number] 2.16.840.1.982887.3.579. 2.462 Unknown [id number] 2.16.840.1.882266.3.579. 2.462 Unknown [id number] 2.16.840.1.550893.3.579. 2.462 Unknown [id number] 2.16.840.1.898178.3.579. 2.462 Unknown [id number] 2.16.840.1.146108.3.579. 2.462 Unknown [id number] 2.16.840.1.086591.3.579. 2.462 Unknown [id number] 2.16.840.1.766780.3.579. 2.462 Unknown [id number] 2.16.840.1.093603.3.579. 2.462 Unknown [id number] 2.16.840.1.987275.3.579. 2.462 Unknown [id number] 2.16.840.1.617594.3.579. 2.462 Unknown [id number] 2.16.840.1.790822.3.579. 2.462 Unknown [id number] 2.16.840.1.456593.3.579. 2.462 Unknown [id number] 2.16.840.1.340334.3.579. 2.462 Unknown [id number] 2.16.840.1.839815.3.579. 2.462 Social History Date Type Detail Facility Start: 01-06-2021 End: 10-31-2023 Tobacco smoking status NHIS Unknown if ever smoked [facility] Start: 08-27-2013 None [facility] Start: 03-18-2014 Spouse/ Signif icant Other [facility] Start: 06-20-2014 Non-smoker [facility] Start: 1945 Sex Assigned At Male [facility] Start: 04-05-2022 End: 03-15-2025 Tobacco smoking status NHIS Ex-smoker [facility] Work Phone: History of tobacco use Current smoker [facility] Work Phone: History of tobacco use Cigarette Smoker [facility] Work Phone: Start: 04-05-2022 Tobacco use and exposure Former smokeless tobacco user [facility] Work Phone: Start: 1945 Sex Assigned At Not on file [facility] Start: 03-26-2022 End: 04-05-2022 Exposure to SARS-CoV-2 (event) Not sure [facility] Work Phone: Start: 04-05-2022 History of Social function [facility] Start: 04-05-2022 Tobacco use panel [facility] Start: 10-30-2024 End: 11-10-2024 Sex Male (finding) [facility] Medical Equipment Procedure Code Equipment Code [...] Assessment Result Facility 03-09-2025 Functional status Chair [facility] Work Phone: Mental Status Date Assessment Result Facility 03-09-2025 Cognitive function Voice/Name [facility] Work Phone: 06-08-2023 Cognitive function Voice/Name [facility] Work Phone: 12-30-2022 Cognitive function Level Of Cons ciousness Awake;Alert;Appropriate;Follow s Commands [facility] Work Phone: 04-28-2022 Cognitive function Voice/Name [facility] Work Phone: 04-14-2022 Cognitive function Level Of Cons ciousness Awake;Appropriate;Follows Commands;Drowsy [facility] Work Phone: Clinical Notes 04-05-2022 to 03-15-2025 Note Date & Type Note Facility 03-15-2025 Discharge summary [facility] 03-15-2025 Discharge summary Note Date/Time March 15, 2025 6:22pm [facility] Medical Records Department [address] [place] [address] Emergency Department Summary 03/15/25 MR#: [id number] Acct: [id number] Name: PEDRO HILLMAN Rep #:[id number] : 1945 80 From: Alex Matias MD [...] symptoms: Yes Recent Illness/Hospitalization: Yes (CHF) [facility] Medical History Other persistent atrial fibrillation New onset atrial flutter DIMA Wears hearing aid in both ears Former smoker Coronary artery disease Peripheral vascular occlusive disease BPH (benign prostatic hyperplasia) Chronic kidney disease, stage 3 Atherosclerosis of coronary artery of [place] heart without angina pectoris Hyperlipidemia Lower extremity [...] 4 doses of apixaban, Eliquis Print Language: Chinese Disposition Disposition: Home, Self Care What to do if you have Problems For any increased pain, shortness of breath, bleeding, nausea or vomiting, chestpain, or any unexpected problems, contact your Primary Care Provider. Call [facility] ([phone]) or report to the closest Emergency Room. Call 911 if necessary. 03/15/251821 <Electronically signed by Alex Matias MD> Cosigner Signature (if applicable): CC: Dr. Tonio Fajardo DO ~ Signed [facility] Work Phone: 1(510) 320-919807-27-2025 Hospital Discharge instructionsAdditional Instructions 1. Hold the next 4 doses of apixaban, Eliquis. 2. Take amoxicillin as prescribed until gone 3. Contact Dr. Vasquez's office in the morning to be seen later this week to have the pack removed.[facility] Work Phone: 1(261) 535-801807-21-2025 Consult note [facility] Medical Records Department [address] [place] [address] Counseling Note - Pharmacy 03/09/25 5002 MR#: [id number] Acct: [id number] Name: PEDRO HILLMAN Rep #:[id number] : 1945 80 From: Mala Diamond PCP: Dr. Tonio Fajardo DO Status:ADM IN Y Location: [facility] [id number] Pharmacy DC Med Rec Counseling Pharmacy [...] Amos Signature (if applicable): CC: ~ Signed [facility]07-21-2025 Discharge summary Author Deric Lantigua [facility] Note Date/Time March 09, 2025 12:5 2pm [facility] Medical Records Department [address] [place] [address] Discharge Summary 03/09/25 1251 MR#: [id number] Acct: [id number] Name: KADYPEDRO Nora Rep #:[id number] : 1945 80 From: Deric Smith PCP: Dr. Tonio Fajardo DO Status:ADM IN Location: [place] [address] Providers Date of Admission: 03/04/25 Date of Discharge: 03/09/25 Primary Care Physician: Dr. Tonio Fajardo DO Consultations 03/04/25 21:21 Consult: Cardiology Routine Consulting Provider: [facility] Reason for Consult: AE CHF, a [...] Code(s): I25.10 - Atherosclerotic heart disease of [place] coronary artery without angina pectoris Qualifiers: Coronary Disease-Associated Artery/Lesion type: [place] artery [place] vs. transplanted heart: [place] heart Associated angina: without angina Qualified Code(s): I25.10 - Atherosclerotic heart disease of [place] coronary artery without angina pectoris (3) Chronic anticoagulation: Status: Acute Code(s): Z79.01 - MCFP (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 of anticoagulants Plan 80-year-old gentleman [...] no significant delta change. ACS ruled out. Travel Counselor is consulted. Repeat proBNP is elevated but it does not reflect treatment response as it should not be ordered for that. Clinically patient is feeling better with improvement in shortness of breath. 2D echo 03/05 reported EF 55%, PASP 42 mmHg with moderate TR, moderate DC and mild PI. 03/06: Furosemide changed to [...] conduction. Later on irregular variable conduction on patient monitor 03/06: Discussed with the vision therapist. Metoprolol increased to 25 mg twice daily, [...] pressure in the 90s. Discussed with the vision therapist. Advised to discontinue to discontinue metoprolol and [...] the CODE STATUS. 03/09: Discussed with the vision therapist.Patient heart rate controlled in 70s. Yesterday rate was in 80s. Patient tolerated Cardizem 30 mg every 8 hourly therefore discharged on Cardizem CD 120 mg. I called patient's eqoafcrs-wr-uav and explained the medication. Travel Counselor felt probably does not need even pacemaker. [...] at the right lung base. Reading Location: [facility] Echocardiogram 03/04/25 20:08 Interpretation Summary Moderate concentric [...] in right lung base aeration. [facility] Medications at Discharge Home Medications insulin glargine [...] 03/05/25 14:17 SB (Rec: 03/05/25 14:17 SB [id number]) Nutrition Malnutrition Evidence of Yes Malnutrition Exists [...] (Auto) 72.6 H, Lymph % (Auto) 9.7L, [place] % (Auto) 12.1 H, Eos % (Auto) [...] Provider: Deric Lantigua Primary Care Provider: Tonio Faajrdo Consulting Providers: Nicola Lindsey; Paris Tiwari; Susan Hawley; Nicolette Mcdonald;Marjorie Green; Martin Vivas; Jose Lai; Issa Looney; Chago Miller; Willian Glaser; Orly Mitchell; Reinaldo Mclain; Santos Hsu; Iker Rodriguez NP; Leslie Arriaga PA; Tadeo Thakakr Instructions Additional Instructions / Restrictions: Discharge with [...] Self Care Charges/Coding Visit Charges Inpatient E&M: 66975 Disch Hosp >30min 03/09/25 1252 <Electronically signed by Deric Lantigua MD> Cosigner Signature (if applicable): CC: Dr. Tonio Fajardo DO; Dr. Willian Glaser MD; Dr. Deric Lantigua MD~ Signed [facility] Work Phone: 1(701) 908-567307-21-2025 Discharge summary Author Deric Lantigua [facility] Note Date/Time March 09, 2025 12:4 4pm [facility] Medical Records Department [address] [place], [place] [address] [address] Instructions for Home/Discharge Instructions 03/09/25 1031 MR#: [id number] Acct: [id number] Name: PEDRO HILLMAN Rep #:[id number] : 1945 80 From: Deric Smith PCP: [...] MD; RICKIE Kumari; RICKIE Cummins ~ Signed [facility] Work Phone: 1([phone]) 841-334807-21-2025 Hospital Discharge instructionsAdditional Instructions Discharge with Claudio catheter. [facility]: [facility] Work Phone: 1(511) 371-276807-21-2025 Discharge summary [facility] Medical Records Department [address] [place] [address] Discharge Summary 03/09/25 1251 MR#: [id number] Acct: [id number] Name: PEDRO HILLMAN Rep #:[id number] : 1945 80 From: Deric Smith PCP: Dr. Tonio Fajardo DO Status:ADM IN Location: [place] [address] Providers Date of Admission: 03/04/25 Date of Discharge: 03/09/25 Primary Care Physician: Dr. Tonio Fajardo DO Consultations 03/04/25 21:21 Consult: Cardiology Routine Consulting Provider: [facility] Reason for Consult: AE CHF, a [...] Code(s): I25.10 - Atherosclerotic heart disease of [place] coronary artery without angina pectoris Qualifiers: Coronary Disease-Associated Artery/Lesion type: [place] artery [place] vs. 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 ACS ruled out. Travel Counselor is consulted. Repeat proBNP is elevated but it does not reflect treatment response as it should not be ordered for that. Clinically patient is feeling better with improvement in shortness of breath. 2D echo 03/05 reported EF 55%, PASP 42 mmHg with moderate TR, moderate DC and mild PI. 03/06: Furosemide changed to [...] conduction. Later on irregular variable conduction on patient monitor 03/06: Discussed with the vision therapist. Metoprolol increased to 25 mg twice daily, Cardizem 60 mg [id number]. If heart rate controlled, will switch to [...] pressure in the 90s. Discussed with the vision therapist. Advised to discontinue to discontinue metoprolol and [...] the CODE STATUS. 03/09: Discussed with the vision therapist.Patient heart rate controlled in 70s. Yesterday rate was in 80s. Patient tolerated Cardizem 30 mg every 8 hourly therefore discharged on Cardizem CD 120 mg. I called patient's hybfofhr-yy-hsc and explained the medication. Travel Counselor felt probably does not need even pacemaker. [...] at the right lung base. Reading Location: [facility] Echocardiogram 03/04/25 20:08 Interpretation Summary Moderate concentric [...] in right lung base aeration. Reading Location: [place] [address] Medications at Discharge Home Medications insulin glargine [...] 03/05/25 14:17 SB (Rec: 03/05/25 14:17 SB [id number]) Nutrition Malnutrition Evidence of Yes Malnutrition Exists [...] (Auto) 72.6 H, Lymph % (Auto) 9.7L, [place] % (Auto) 12.1 H, Eos % (Auto) [...] Mitchell; Reinaldo Mclain; Santos Hsu; Iker Rodriguez COFFIN MAKER; Leslie Arriaga PA; Tadeo Thakkar Instructions Additional [...] Self Care Charges/Coding Visit Charges Inpatient E&M: 78734 Disch Hosp >30min 03/09/25 1252 Cosigner Signature (if applicable): CC: Dr. Tonio Fajardo DO; Dr. Willian Glaser MD; Dr. Deric Lantigua MD~ Signed [facility]07-21-2025 [facility]07-21-2025 Discharge summary [facility] Medical Records Department [address] [place] [address] Instructions for Home/Discharge Instructions 03/09/25 1031 MR#: [id number] Acct: [id number] Name: PEDRO HILLMAN Rep #:[id number] : 1945 80 From: Deric Smith PCP: [...] Self Care 03/09/25 1244Pmaribel Lantigua MD CC: COFFIN MAKER-Estevan Rodriguez; Dr. Susan Hawley MD; Dr. Paris Tiwari MD; Dr. Marjorie Green MD; Dr. Nicolette Mcdonald MD; Dr. Martin Vivas MD; Dr. Jose Lai MD; Dr. Issa Looney MD; Dr. Nicola Lindsey DO; Dr. Chago Miller MD; Dr. Tonio Fajardo DO; Dr. Willian Glaser MD; Dr. Orly Mitchell MD;Dr. Santos Hsu MD; Dr. Reinaldo Mclain MD; RICKIE Kumari; RICKIE Cummins ~ Signed [facility]07-21-2025 Progress note Author Willian Glaser [facility] Note Date/Time March 09, 2025 9:53 am [facility] Medical Records Department [address] [place] [address] Progress Note - Cardiology 03/09/25 0943 MR#: [id number] Acct: [id number] Name: PEDRO HILLMAN Rep #:[id number] : 1945 80 From: Willian Glaser MD PCP: Dr. Tonio Fajardo, DO Status:ADM IN Location: [place] [address] Subjective Subjective Patient evaluated in a seated [...] (Auto) 72.6 H, Lymph % (Auto) 9.7L, [place] % (Auto) 12.1 H, Eos % (Auto) [...] 72.6 H, Lymph % (Auto) 9.7 L, [place] % (Auto) 12.1 H, Eos % (Auto) [...] disease: QUALIFIERS: Coronary Disease-Associated Artery/Lesion type: nativeartery [place] vs. transplanted heart: [place] heart Associated angina: without angina Qualified Code(s): I25.10 - Atherosclerotic heart disease of [place] coronary artery without angina pectoris PLAN: Patient carries a history of bypass graft surgery followed in the [facility]. The patient should be reevaluated in 2 to 4 weeks in the [facility] with advanced practitioner. Given the patient's recovery [...] At discharge patient should follow-up with the [facility] advanced practitioner in 2 to 3 weeks. 4. If further assistance is needed please reconsult the [facility]. Charges/Coding Visit Charges Inpatient E&M: 01956 Subs Hosp L3 03/09/25 0953 <Electronically signed by Willian Glaser MD> Cosigner Signature (if applicable): CC: ~ Signed [facility] Work Phone: 1(164) 174-169807-21-2025 Progress note [facility] Medical Records Department [address] [place] [address] Progress Note - Cardiology 03/09/2543 MR#: [id number] Acct: [id number] Name: PEDRO HILLMAN #:[id number] : 1945 80 From: Willian Glaser MD PCP: Dr. Tonio Fajardo, DO Status:ADM IN Location: [address] Subjective Subjective Patient evaluated in [...] (Auto) 72.6 H, Lymph % (Auto) 9.7L, [place] % (Auto) 12.1 H, Eos % (Auto) [...] 72.6 H, Lymph % (Auto) 9.7 L, [place] % (Auto) 12.1 H, Eos % (Auto) [...] disease: QUALIFIERS: Coronary Disease-Associated Artery/Lesion type: nativeartery [place] vs. transplanted heart: [place] heart Associated angina: without angina Qualified Code(s): I25.10 - Atherosclerotic heart disease of [place] coronary artery without angina pectoris PLAN: Patient carries a history of bypass graft surgery followed in the [facility]. The patient should be reevaluated in 2 to 4 weeks in the [facility] with advanced practitioner. Given the patient's recovery [...] At discharge patient should follow-up with the [facility] advanced practitioner in 2 to3 weeks. 4. If further assistance is needed please reconsult the [facility]. Charges/Coding Visit Charges Inpatient E&M: 37428 [facility] Hosp 03/09/25 0953 Cosigner Signature (if applicable): CC: ~ Signed [facility]07-20-2025 Progress note Author Deric Lantigua [facility] Note Date/Time March 08, 2025 1:34 pm [facility] Medical Records Department [address] [place] [address] Progress Note - Hospitalist 03/08/25 0844 MR#: [id number] Acct: [id number] Name: PEDRO HILLMAN Rep #:[id number] : 1945 80 From: Deric Smith PCP: Dr. Tonio Fajardo, DO Status:ADM IN Location: [place] [id number] Reason for Visit Chief Complaint: SOB. [...] 03/05/25 14:17 SB (Rec: 03/05/25 14:17 SB [id number]) Nutrition Malnutrition Evidence of Yes Malnutrition Exists [...] also sustained 11 beats of V. tach. environmental monitoring technician reviewed. Still in A-fib/flutter with bradycardia. Shortness [...] hematuria: (8) Atherosclerosis of coronary artery of [place] heart without angina pectoris: QUALIFIERS: Coronary Disease-Associated Artery/Lesion type: nativeartery Qualified Code(s): I25.10 - Atherosclerotic heart disease of [place] coronary artery without angina pectoris (9) Overweight [...] no significant delta change. ACS ruled out. Travel Counselor is consulted. Repeat proBNP is elevated but it does not reflect treatment response as it should not be ordered for that. Clinically patient is feeling better with improvement in shortness of breath. 2D echo 03/05 reported EF 55%, PASP 42 mmHg with moderate TR, moderate DC and mild PI. 03/06: Furosemide changed to [...] conduction. Later on irregular variable conduction on patient monitor 03/06: Discussed with the vision therapist. Metoprolol increased to 25 mg twice daily, [...] pressure in the 90s. Discussed with the vision therapist. Advised to discontinue to discontinue metoprolol and [...] at the right lung base. Reading Location: [facility] Echocardiogram 03/04/25 20:08 Interpretation Summary Moderate concentric [...] in right lung base aeration. Reading Location: [place] [address] Charges/Coding Addendum Addendum: Total time of the visit including total time spent in counseling or coordinationof care, (more than 50% of the total time, spent in obtaining medical information from nurses and other ancillary care providers ,explaining to the patient about labs, imaging, diagnosis and management of active complex medical conditions), multiple active cardiac issues, urinary retention discussion with vision therapist and clinical update given to patient's wahobeds-ft-hhg, review of labs and imaging is 35 minutes. Visit Charges Inpatient E&M: 31073 Subs Hosp 03/08/25 1040 <Electronically signed by Deric Lantigua MD> Cosigner Signature (if applicable): CC: ~ Signed ADDENDUM by Dr. Deric Lantigua MD on 03/08/25 at 1334 Addendum The patient's son and wkmgpiwp-no-lda came to visit him. They decided patient to be DNR CC arrest with no intubation CODE STATUS changed. Living will/advanced directive/end of life care: Patient does not have living will or advanced directive. He is next of kin is his son and tdvgvwto-rz-edm. After discussion of benefits/risks procedures involved with full code, DNR CC arrest and DNR CC, the patient and his ppguaozf-ls-hbx he opted for DNR CC arrest with no intubation. Patient also said that he does not want pacemaker but his gnsiltwk-cr-euy and son will discuss with him Patient does want artificial life support including intubation, tube feed, ventilator and/chest compression, central venous catheter, vasopressor and DC shock if needed Total time spent in miut-fx-qwph encounter in discussion of advanced directive 17 minutes. 03/08/25 1334<Electronically signed by Deric Lantigua MD> Cosigner Signature (if applicable): cc: ~* Signed [facility] Work Phone: 1(740) 625-225007-20-2025 Progress note [facility] Medical Records Department [address] [place] [address] Progress Note - Hospitalist 03/08/25 0844 MR#: [id number] Acct: [id number] Name: PEDRO HILLMAN Rep #:[id number] : 1945 80 From: Deric Smith PCP: Dr. Tonio Fajardo, Status:ADM IN Location: [place] [id number] Reason for Visit Chief Complaint: [...] 03/05/25 14:17 SB (Rec: 03/05/25 14:17 SB [id number]) Nutrition Malnutrition Evidence of Yes Malnutrition Exists [...] Patient alsosustained 11 beats of V. tach. environmental monitoring technician reviewed. Still in A-fib/flutter with bradycardia. Shortness [...] hematuria: (8) Atherosclerosis of coronary artery of [place] heart without angina pectoris: QUALIFIERS: Coronary Disease-Associated Artery/Lesion type: nativeartery Qualified Code(s): I25.10 - Atherosclerotic heart disease of [place] coronary artery without angina pectoris (9) Overweight [...] no significant delta change. ACS ruled out. Travel Counselor is consulted. Repeat proBNP is elevated but it does not reflect treatment response as it should not be ordered for that. Clinically patient is feeling better with improvement in shortness of breath. 2D echo 03/05 reported EF 55%, PASP 42 mmHg with moderate TR, moderate DC and mild PI. 03/06: Furosemide changed to [...] conduction. Later on irregular variable conduction on patient monitor 03/06: Discussed with the vision therapist. Metoprolol increased to 25 mg twice daily, Cardizem 60 mg P4bxvfee. If heart rate controlled, will switch to [...] pressure in the 90s. Discussed with the vision therapist. Advised to discontinue to discontinue metoprolol and [...] at the right lung base. [facility] Echocardiogram 03/04/25 20:08 Interpretation Summary [...] in right lung base aeration. Reading Location: [place] [address] Charges/Coding Addendum Addendum: Total time of the visit including total time spent in counseling or coordinationof care, (more than50% of the total time, spent in obtaining medical information from nurses and other ancillary care providers ,explaining to the patient about labs, imaging, diagnosis and management of active complexmedical conditions), multiple active cardiac issues, urinary retention discussion with cardiologistand clinical update given to patient's rwmwjeox-yz-mll, review of labs and imaging is 35 minutes. Visit Charges Inpatient E&M: 86138 Subs Hosp L3 03/08/25 1040 Cosigner Signature (if applicable): CC: ~ Signed ADDENDUM by Dr. Deric Lantigua MD on 03/08/25 at 1334 Addendum The patient's son and zrkfqqzn-st-ajf came to visit him. They decided patient to be DNR CC arrest with no intubation CODE STATUS changed. Living will/advanced directive/end of life care: Patient does not have living will or advanced directive. He is next of kin is his son and ahlcahkx-nt-xsy. After discussion of benefits/risks procedures involved with full code, DNR CC arrest and DNR CC, the patient and his urmllanh-ir-xep he opted for DNR CC arrest with no intubation. Patient also said that he does not want pacemaker but his spzjtzen-ah-olw and son will discuss with him Patient does want artificial life support including intubation, tube feed, ventilator and/chest compression, central venous catheter, vasopressor and DC shock if needed Total time spent in rqls-ig-kbdr encounter in discussion of advanced directive 17 minutes. 03/08/25 1334 Cosigner Signature (if applicable): cc: ~* Signed [facility]07-20-2025 Progress note Author Marjorie Green [facility] Note Date/Time March 08, 2025 8:51 am [facility] Medical Records Department [address] [place] [address] Progress Note - Cardiology 03/08/25 0848 MR#: [id number] Acct: [id number] Name: PEDRO HILLMAN Rep #:[id number] : 1945 80 From: Marjorie Green MD PCP: Dr. Tonio Fajardo, DO Status:ADM IN Location: [place] [address] Subjective Subjective Denies any complaints. Became bradycardic [...] Cosigner Signature (if applicable): CC: ~ Signed [facility] Work Phone: 1(319) 103-482207-20-2025 Progress note [facility] Medical Records Department [address] [place] [address] Progress Note - Cardiology 03/08/25 0848 MR#: [id number] Acct: [id number] Name: PEDRO HILLMAN Rep #:[id number] : 1945 80 From: Marjorie Green MD PCP: Dr. Tonio Fajardo, DO Status:ADM IN Location: [place] [address] Subjective Subjective Denies any complaints. Became bradycardic [...] Cosigner Signature (if applicable): CC: ~ Signed [facility]07-19-2025 Progress note Author Deric Lantigua [facility] Note Date/Time March 07, 2025 1:51 pm [facility] Medical Records Department [address] [place] [address] Progress Note - Hospitalist 03/07/25 1342 MR#: [id number] Acct: [id number] Name: PEDRO HILLMAN Rep #:[id number] : 1945 80 From: Deric Smith PCP: Dr. Tonio Fajardo, Status:ADM IN Location: [place] [address] Reason for Visit Chief Complaint: SOB. Objective [...] 03/05/25 14:17 SB (Rec: 03/05/25 14:17 SB [id number]) Nutrition Malnutrition Evidence of Yes Malnutrition Exists [...] low 108/34 but improved to 129 systolic. environmental monitoring technician reviewed. Still in A-fib/flutter. Shortness of breath [...] hematuria: (8) Atherosclerosis of coronary artery of [place] heart without angina pectoris: QUALIFIERS: Coronary Disease-Associated Artery/Lesion type: nativeartery Qualified Code(s): I25.10 - Atherosclerotic heart disease of [place] coronary artery without angina pectoris (9) Overweight [...] no significant delta change. ACS ruled out. Travel Counselor is consulted. Repeat proBNP is elevated but it does not reflect treatment response as it should not be ordered for that. Clinically patient is feeling better with improvement in shortness of breath. 2D echo 03/05 reported EF 55%, PASP 42 mmHg with moderate TR, moderate DC and mild PI. 03/06: Furosemide changed to [...] conduction. Later on irregular variable conduction on patient monitor 03/06: Discussed with the vision therapist. Metoprolol increased to 25 mg twice daily, [...] in right lung base aeration. Reading Location: [place] [address] Charges/Coding Visit Charges Inpatient E&M: 42466 Subs Hosp L2 03/07/25 1351 <Electronically signed by Deric Lantigua MD> Cosigner Signature (if applicable): CC: ~ Signed [facility] Work Phone: 1(822) 875-119707-19-2025 Progress note [facility] Medical Records Department [address] [place] [address] Progress Note - Hospitalist 03/07/25 1342 MR#: [id number] Acct: [id number] Name: PEDRO HILLMAN Rep #:[id number] : 1945 80 From: Deric Smith PCP: Dr. Tonio Fajardo, DO Status:ADM IN Location: [place] [address] Reason for Visit Chief Complaint: SOB. Objective [...] 03/05/25 14:17 SB (Rec: 03/05/25 14:17 SB [id number]) Nutrition Malnutrition Evidence of Yes Malnutrition Exists [...] low 108/34 but improved to 129 systolic. environmental monitoring technician reviewed. Still in A-fib/flutter. Shortness of breath [...] hematuria: (8) Atherosclerosis of coronary artery of [place] heart without angina pectoris: QUALIFIERS: Coronary Disease-Associated Artery/Lesion type: nativeartery Qualified Code(s): I25.10 - Atherosclerotic heart disease of [place] coronary artery without angina pectoris (9) Overweight [...] no significant delta change. ACS ruled out. Travel Counselor is consulted. Repeat proBNP is elevated but it does not reflect treatment response as it should not be ordered for that. Clinically patient is feeling better with improvement in shortness of breath. 2D echo 03/05 reported EF 55%, PASP 42 mmHg with moderate TR, moderate DC and mild PI. 03/06: Furosemide changed to [...] conduction. Later on irregular variable conduction on patient monitor 03/06: Discussed with the vision therapist. Metoprolol increased to 25 mg twice daily, Cardizem 60 mg [id number]. If heart rate controlled, will switch to [...] at the right lung base. Reading Location: [facility] Echocardiogram 03/04/25 20:08 Interpretation Summary Moderate concentric [...] in right lung base aeration. [facility] Charges/Coding Visit Charges Inpatient E&M: 11851 Subs Hosp L2 03/07/25 1350 Cosigner Signature (if applicable): CC: ~ Signed [facility]07-18-2025 Progress note Author Deric Lantigua [facility] Note Date/Time March 06, 2025 3:46 pm [facility] Medical Records Department [address] [place] [address] Progress Note - Hospitalist 03/06/25 1540 MR#: [id number] Acct: [id number] Name: PEDRO HILLMAN Rep #:[id number] : 1945 80 From: Deric Smith PCP: Dr. Tonio Fajardo, DO Status:ADM IN Location: [place] [address] Reason for Visit Chief Complaint: SOB. Objective [...] 03/05/25 14:17 SB (Rec: 03/05/25 14:17 SB [id number]) Nutrition Malnutrition Evidence of Yes Malnutrition Exists [...] is improved. Still in A-fib/flutter with heart [id number]. Shortness of breath is better. Did not [...] hematuria: (8) Atherosclerosis of coronary artery of [place] heart without angina pectoris: QUALIFIERS: Coronary Disease-Associated Artery/Lesion type: nativeartery Qualified Code(s): I25.10 - Atherosclerotic heart disease of [place] coronary artery without angina pectoris (9) Overweight [...] no significant delta change. ACS ruled out. Travel Counselor is consulted. Repeat proBNP is elevated but it does not reflect treatment response as it should not be ordered for that. Clinically patient is feeling better with improvement in shortness of breath. 2D echo 03/05 reported EF 55%, PASP 42 mmHg with moderate TR, moderate DC and mild PI. 03/06: Furosemide changed to [...] conduction. Later on irregular variable conduction on patient monitor 03/06: Discussed with the vision therapist. Metoprolol increased to 25 mg twice daily, [...] at the right lung base. Reading Location: [facility]1 Echocardiogram 03/04/25 20:08 Interpretation Summary Moderate concentric [...] in right lung base aeration. Reading Location: [place] [address] Charges/Coding Visit Charges Inpatient E&M: 00839 Subs Hosp L2 03/06/25 1546 <Electronically signed by Deric Lantigua MD> Cosigner Signature (if applicable): CC: ~ Signed [facility] Work Phone: 1(456) 297-450607-18-2025 Progress note [facility] Medical Records Department [address] [place] [address] Progress Note - Hospitalist 03/06/25 1540 MR#: [id number] Acct: [id number] Name: PEDRO HILLMAN Rep #:[id number] : 1945 80 From: Deric Smith PCP: Dr. Tonio Fajardo, DO Status:ADM IN Location: [place] [address] Reason for Visit Chief Complaint: SOB. Objective [...] 03/05/25 14:17 SB (Rec: 03/05/25 14:17 SB [id number]) Nutrition Malnutrition Evidence of Yes Malnutrition Exists [...] is improved. Still in A-fib/flutter with heart [id number]. Shortness of breath is better. Did not [...] hematuria: (8) Atherosclerosis of coronary artery of [place] heart without angina pectoris: QUALIFIERS: Coronary Disease-Associated Artery/Lesion type: nativeartery Qualified Code(s): I25.10 - Atherosclerotic heart disease of [place] coronary artery without angina pectoris (9) Overweight [...] no significant delta change. ACS ruled out. Travel Counselor is consulted. Repeat proBNP is elevated but it does not reflect treatment response as it should not be ordered for that. Clinically patient is feeling better with improvement in shortness of breath. 2D echo 03/05 reported EF 55%, PASP 42 mmHg with moderate TR, moderate DC and mild PI. 03/06: Furosemide changed to [...] conduction. Later on irregular variable conduction on patient monitor 03/06: Discussed with the vision therapist. Metoprolol increased to 25 mg twice daily, Cardizem 60 mg [id number]. If heart rate controlled, will switch to [...] at the right lung base. Reading Location: [facility] Echocardiogram 03/04/25 20:08 Interpretation Summary Moderate concentric [...] in right lung base aeration. Reading Location: [place] [address] Charges/Coding Visit Charges Inpatient E&M: 90629 Subs Hosp L2 03/06/25 1546 Cosigner Signature (if applicable): CC: ~ Signed [facility]07-18-2025 Consult note Author Marjorie Green [facility] Note Date/Time March 06, 2025 9:33 am [facility] Medical Records Department [address] [place] [address] Consultation - Cardiology 03/06/25 0926 MR#: [id number] Acct: [id number] Name: PEDRO HILLMAN Rep #:[id number] : 1945 80 From: Marjorie Green MD PCP: Dr. Tonio Fajardo, DO Status:ADM IN Location: [facility] DFT133- 1 Assessment & Plan Assessment/Plan (1) Atrial [...] his shortness of breath is much improved. [facility] Medical History (Updated 03/06/25 @ 09:[address] Marjorie Green MD) Other persistent atrial fibrillation New onset atrial flutter DIMA Wears hearing aid in both ears Former smoker Coronary artery disease Peripheral vascular occlusive disease BPH (benign prostatic hyperplasia) Chronic kidney disease, stage 3 Atherosclerosis of coronary artery of [place] heart without angina pectoris Hyperlipidemia Lower extremity [...] applicable): CC: Dr. Tonio Fajardo, DO~ Signed [facility] Work Phone: 1(285) 338-268507-18-2025 Consult note [facility] Medical Records Department [address] [place] [address] Consultation - Cardiology 03/06/25925 MR#: [id number] Acct: [id number] Name: PEDRO HILLMAN Rep #:[id number] : 1945 80 From: Marjorie Green MD PCP: Dr. Tonio Fajardo, DO Status:ADM IN Location: [place] [id number] Assessment & Plan Assessment/Plan (1) Atrial [...] his shortness of breath is much improved. [facility] Medical History (Updated 03/06/25 @ 09:[address] Marjorie Green MD) Other persistent atrial fibrillation New onset atrial flutter COVID Wears hearing aid in both ears Former smoker Coronary artery disease Peripheral vascular occlusive disease BPH (benign prostatic hyperplasia) Chronic kidney disease, stage 3 Atherosclerosis of coronary artery of [place] heart without angina pectoris Hyperlipidemia Lower extremity [...] Performed By: Haley Stevens and Student 03/06/25 0982 Cosigner Signature (if applicable): CC: Dr. Tonio Fajardo, DO~ Signed [facility]07-17-2025 Progress note Author Deric Lantigua [facility] Note Date/Time March 05, 2025 3:56 pm [facility] Medical Records Department [address] [place] [address] Progress Note - Hospitalist 03/05/2519 MR#: [id number] Acct: [id number] Name: PEDRO HILLMAN Rep #:[id number] : 1945 80 From: Deric Smith PCP: Dr. Tonio Fajardo, DO Status:ADM IN Location: [place] [address] Reason for Visit Chief Complaint: SOB. Objective [...] 78.1 H, Lymph % (Auto) 10.1 L, [place] % (Auto) 9.1, Eos % (Auto) 1.6, [...] Clarity Cloudy, Urine pH 6.5, Ur Specific Kimber[place] 1.010, Urine Protein 100 H, Urine Glucose [...] (Auto) 76.4 H, Lymph % (Auto) 9.5L, [place] % (Auto) 11.4 H, Eos % (Auto) [...] at the right lung base. Reading Location: [facility] Chest X-Ray 03/05/25 04:30 IMPRESSION: Small interval improvement in right lung base aeration. Reading Location: [facility]-2 Rhythm Strip Rhythm Strip: Atrial flutter [...] hematuria: (8) Atherosclerosis of coronary artery of [place] heart without angina pectoris: QUALIFIERS: Coronary Disease-Associated Artery/Lesion type: nativeartery Qualified Code(s): I25.10 - Atherosclerotic heart disease of [place] coronary artery without angina pectoris (9) Overweight [...] no significant delta change. ACS ruled out. Travel Counselor is consulted. Repeat proBNP is elevated but it does not reflect treatment response as it should not be ordered for that. Clinically patient is feeling better with improvement in shortness of breath. 2D echo 03/05 reported EF 55%, PASP 42 mmHg with moderate TR, moderate DC and mild PI. 2. EKG evidence of Atrial Flutter; with Rapid Ventricular Response of ~117 bpm even after being treated with IV Cardizem bolus probably precipitating CHF exacerbation: Patient already on apixaban patient had digoxin. TSH 3.7 normal. Twelve-lead EKG individually reviewed and shows atrial flutter 2 is to 1 conduction. Later on irregular variable conduction on patient monitor 3. CKD; stage IIIb with hyperkalemia, present [...] Clarity Cloudy, Urine pH 6.5, Ur Specific [place] 1.010, Urine Protein 100 H, Urine Glucose [...] (Auto) 76.4 H, Lymph % (Auto) 9.5L, [place] % (Auto) 11.4 H, Eos % (Auto) [...] at the right lung base. Reading Location: [facility] Echocardiogram 03/04/25 20:08 Interpretation Summary Moderate concentric [...] in right lung base aeration. Reading Location: [place] [address] Charges/Coding Addendum Addendum: Total time of the [...] imagingis 35 minutes. Visit Charges Inpatient E&M: 44289 Subs Hosp L3 03/05/25 3117 <Electronically signed by Deric Lantigua MD> Cosigner Signature (if applicable): CC: ~ Signed [facility] Work Phone: 1(177) 736-248507-17-2025 Progress note [facility] Medical Records Department [address] [place] [address] Progress Note - Hospitalist 03/05/25718 MR#: [id number] Acct: [id number] Name: PEDRO HILLMAN Rep #:[id number] : 1945 80 From: Deric Smiht PCP: Dr. Tonio Fajardo, DO Status:ADM IN Location: [place] [address] Reason for Visit Chief Complaint: SOB. Objective [...] 78.1 H, Lymph % (Auto) 10.1 L, [place] % (Auto) 9.1, Eos % (Auto) 1.6, [...] Clarity Cloudy, Urine pH 6.5, Ur Specific Kimberly 1.010, Urine Protein 100 H, Urine Glucose [...] (Auto) 76.4 H, Lymph % (Auto) 9.5L, [place] % (Auto) 11.4 H, Eos % (Auto) [...] at the right lung base. Reading Location: [facility]1 Chest X-Ray 03/05/25 04:30 IMPRESSION: Small interval improvement in right lung base aeration. Reading Location: [facility] Rhythm Strip Rhythm Strip: Atrial [...] hematuria: (8) Atherosclerosis of coronary artery of [place] heart without angina pectoris: QUALIFIERS: Coronary Disease-Associated Artery/Lesion type: nativeartery Qualified Code(s): I25.10 - Atherosclerotic heart disease of [place] coronary artery without angina pectoris (9) Overweight [...] no significant delta change. ACS ruled out. Travel Counselor is consulted. Repeat proBNP is elevated but it does not reflect treatment response as it should not be ordered for that. Clinically patient is feeling better with improvement in shortness of breath. 2D echo 03/05 reported EF 55%, PASP 42 mmHg with moderate TR, moderate DC and mild PI. 2. EKG evidence of Atrial Flutter; with Rapid Ventricular Response of ~117 bpm even after being treated with IV Cardizem bolus probably precipitating CHF exacerbation: Patient already on apixaban patient had digoxin. TSH 3.7 normal. Twelve-lead EKG individually reviewed and shows atrial flutter 2 is to 1 conduction. Later on irregular variable conduction on patient monitor 3. CKD; stage IIIb with hyperkalemia, present [...] Clarity Cloudy, Urine pH 6.5, Ur Specific Kimber[place] 1.010, Urine Protein 100 H, Urine Glucose [...] (Auto) 76.4 H, Lymph % (Auto) 9.5L, [place] % (Auto) 11.4 H, Eos % (Auto) [...] in right lung base aeration. Reading Location: [place] [address] Charges/Coding Addendum Addendum: Total time of the [...] imagingis 35 minutes. Visit Charges Inpatient E&M: 32580 Subs Hosp 03/05/25 1556 Cosigner Signature (if applicable): CC: ~ Signed [facility]07-17-2025 History and physical note Author Nicola Madison [facility] Note Date/Time March 05, 2025 6:22 am [facility] Medical Records Department [address] [place] [address] H&P Exam - Hospitalist 03/04/251921 MR#: [id number] Acct: [id number] Name: PEDRO HILLMAN Rep #:[id number] : 1945 80 From: Nicola Levy DO PCP: Dr. Tonio Fajardo, DO Status:ADM IN Location: [facility] [id number]- 1 [facility] - General General Date of Admission: 03/04/25 [...] of COVID-19 and OA who presents to [facility] ER complaining of SOB. Mr. Hillman [...] ~53% with moderate mitral annular calcification and lonh-mg-raagxene (~1-2+) mitral valve insufficiency with a pulmonary [...] is expected to extend beyond 2 midnights. [facility] Medical History Other persistent atrial fibrillation New onset atrial flutter COVID Wears hearing aid in both ears Former smoker Coronary artery disease Peripheral vascular occlusive disease BPH (benign prostatic hyperplasia) Chronic kidney disease, stage 3 Atherosclerosis of coronary artery of [place] heart without angina pectoris Hyperlipidemia Lower extremity [...] 78.1 H, Lymph % (Auto) 10.1 L, [place] % (Auto) 9.1, Eos % (Auto) 1.6, [...] at the right lung base. Reading Location: [facility] Assessment & Plan Assessment/Plan (1) CHF exacerbation: QUALIFIERS: Heart failure type: unspecified Qualified Code(s): I50.9 - Heart failure, unspecified (2) Atrial flutter with rapid ventricular response: (3) Chronic anticoagulation: (4) Elevated troponin: (5) Hyperkalemia: (6) Pleural effusion on right: (7) Acute cystitis with hematuria: (8) Atherosclerosis of coronary artery of [place] heart without angina pectoris: QUALIFIERS: Coronary Disease-Associated Artery/Lesion type: nativeartery Qualified Code(s): I25.10 - Atherosclerotic heart disease of [place] coronary artery without angina pectoris (9) Overweight [...] LVEF. Serialize troponin. Finally, we will consult [facility] see this patient on rounds [...] 75 minutes. Charges/Coding Visit Charges Inpatient E&M: 04405 Init Hosp L3 03/05/25 0622 <Electronically signed by Nicola Lindsey DO> Cosigner Signature (if applicable): CC: Dr. Nicola Lindsey DO; Dr. Tonio Fajardo DO~ Signed [facility] Work Phone: 1(410) 217-707107-17-2025 History and physical note [facility] Medical Records Department [address] [place] [address] H&P Exam - Hospitalist 03/04/251921 MR#: [id number] Acct: [id number] Name: PEDRO HILLMAN Rep #:[id number] : 1945 80 From: Nicola Levy DO PCP: Dr. Tonio Fajardo, DO Status:ADM IN Location: [facility] [id number]- 1 [facility] - General General Date of Admission: 03/04/25 [...] of COVID-19 and OA who presents to [facility] ERcomplaining of SOB. Mr. Hillman reports [...] ~53% with moderate mitral annular calcification and paei-xt-rmicwlsj (~1-2+) mitral valve insufficiency with a pulmonary [...] is expected to extend beyond 2 midnights. [facility] Medical History Other persistent atrial fibrillation New onset atrial flutter COVCOLETTE Wears hearing aid in both ears Former smoker Coronary artery disease Peripheral vascular occlusive disease BPH (benign prostatic hyperplasia) Chronic kidney disease, stage 3 Atherosclerosis of coronary artery of [place] heart without angina pectoris Hyperlipidemia Lower extremity [...] 78.1 H, Lymph % (Auto) 10.1 L, [place] % (Auto) 9.1, Eos % (Auto) 1.6, [...] at the right lung base. Reading Location: [facility] Assessment & Plan Assessment/Plan (1) CHF exacerbation: QUALIFIERS: Heart failure type: unspecified Qualified Code(s): I50.9 - Heart failure, unspecified (2) Atrial flutter with rapid ventricular response: (3) Chronic anticoagulation: (4) Elevated troponin: (5) Hyperkalemia: (6) Pleural effusion on right: (7) Acute cystitis with hematuria: (8) Atherosclerosis of coronary artery of [place] heart without angina pectoris: QUALIFIERS: Coronary Disease-Associated Artery/Lesion type: nativeartery Qualified Code(s): I25.10 - Atherosclerotic heart disease of [place] coronary artery without angina pectoris (9) Overweight [...] LVEF. Serialize troponin. Finally, we will consult [facility] see this patient on rounds [...] 75 minutes. Charges/Coding Visit Charges Inpatient E&M: 08069 Init Hosp L3 03/05/25 0622 Cosigner Signature (if applicable): CC: Dr. Nicola Lindsey DO; Dr. Tonio Fajardo DO~ Signed [facility]07-17-2025 Radiology Diagnostic study note [facility] Imaging Services [address] [place], [place] [id number] Chest 1 View (Portable) MR#: [id number] Acct: [id number] Name: PEDRO HILLMAN #: [id number] : 1945 M 80 From: Regi Babb MD PCP: Dr. Tonio Fajardo DO Status: ADM IN Study:Chest 1 View (Portable) Date of Exam: 03/05/25 Exam# [id number] Ordering Dr: Nicola Mukherjee DO PROCEDURE: CHEST [...] in right lung base aeration. Reading Location: [facility] CC: Dr. Nicola Lindsey DO; Dr. 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 March 04, [...] 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 March 17, 2025 12:51pm [facility] Work Phone: 1(793) 902-914507-16-2025 Discharge summary Author Chris Ochoa [facility] Note Date/Time March 04, 2025 7:26 pm [facility] Medical Records Department [address] [place] [address] Emergency Department Summary 03/04/25 MR#: [id number] Acct: [id number] Name: PEDRO HILLMAN Rep #:[id number] : 1945 80 From: Chris Ochoa MD [...] stage 3 Atherosclerosis of coronary artery of [place] heart without angina pectoris Hyperlipidemia Lower extremity [...] signs. Back nontender. Movingall 4 extremities. Normal director institution strength. Calves nontender without edema or cords. [...] 78.1 H Lymph % (Auto) 10.1 L [place] % (Auto) 9.1 Eos % (Auto) 1.6 [...] at the right lung base. Reading Location: [place] [address] Chest x-ray, 2 views, AP and lateral, [...] Chronic anticoagulation Disposition Disposition: Acute Care Hospital [facility] What to do if you have Problems For any increased pain, shortness of breath, bleeding, nausea or vomiting, chestpain, or any unexpected problems, contact your Primary Care Provider. Call [facility] ([phone]) or report to the closest Emergency Room. Call 911 if necessary. 03/04/251925 <Electronically signed by Chris Ochoa MD> Cosigner Signature (if applicable): CC: Dr. Tonio Fajardo DO ~ Signed [facility] Work Phone: 1(419) 162-577907-16-2025 Discharge summary [facility] Medical Records Department [address] [place] [address] Emergency Department Summary 03/04/25 MR#: [id number] Acct: [id number] Name: PEDRO HILLMAN Rep #:[id number] : 1945 80 From: Chris Ochoa MD [...] stage 3 Atherosclerosis of coronary artery of [place] heart without angina pectoris Hyperlipidemia Lower extremity [...] signs. Back nontender. Movingall 4 extremities. Normal director institution strength. Calves nontender without edema or cords. [...] 78.1 H Lymph % (Auto) 10.1 L [place] % (Auto) 9.1 Eos % (Auto) 1.6 [...] at the right lung base. Reading Location: [facility]1 Chest x-ray, 2 views, AP and lateral, [...] COPD, Chronic kidneydisease, Chronic anticoagulation Disposition Disposition: [facility] What to do if you have Problems For any increased pain, shortness of breath, bleeding, nausea or vomiting, chestpain, or any unexpected problems, contact your Primary Care Provider. Call [facility] ([phone]) or report tothe closest Emergency Room. Call 911 if necessary. 03/04/251925 Cosigner Signature (if applicable): CC: Dr. Tonio Fajardo DO ~ Signed [facility]07-16-2025 Radiology Diagnostic study note [facility] Imaging Services [address] [place], [place] [address] Chest PA and Lateral MR#: [id number] Acct: [id number] Name: PEDRO HILLMAN Rep #: [id number] : 1945 M 80 From: Tom Flores MD PCP: Dr. Tonio Fajardo DO Status: PRE ER Study:Chest PA and Lateral Date of Exam: 03/04/25 Exam# [id number] Ordering Dr: Camila Ochoa MD PROCEDURE: CHEST [...] at the right lung base. Reading Location: [place] [address] CC: Dr. Chris Ochoa MD; Dr. Tonio Fajardo DO ~ Shuttle Car Operator: Signed [facility]07-16-2025 Discharge summary Author Chris Ochoa [facility] Note Date/Time March 04, 2025 7:26 pm [facility] Medical Records Department [address] [place] [address] Emergency Department Summary 03/04/25 MR#: [id number] Acct: [id number] Name: PEDRO HILLMAN Rep #:[id number] : 1945 80 From: Chris Ochoa MD [...] stage 3 Atherosclerosis of coronary artery of [place] heart without angina pectoris Hyperlipidemia Lower extremity [...] signs. Back nontender. Movingall 4 extremities. Normal director institution strength. Calves nontender without edema or cords. [...] 78.1 H Lymph % (Auto) 10.1 L [place] % (Auto) 9.1 Eos % (Auto) 1.6 [...] at the right lung base. Reading Location: [place] [address] Chest x-ray, 2 views, AP and lateral, [...] Chronic anticoagulation Disposition Disposition: [facility] What to do if you have Problems For any increased pain, shortness of breath, bleeding, nausea or vomiting, chestpain, or any unexpected problems, contact your Primary Care Provider. Call [facility] ([phone]) or report to the closest Emergency Room. Call 911 if necessary. 07/16/25 1926 <Electronically signed by Chris Ochoa MD> Cosigner Signature (if applicable): CC: Dr. Tonio Fajardo, DO ~ Signed [facility] Work Phone: 1(364) 349-710103-20-2025 Evaluation note* Diagnosis Onset Date Resolution Status [...] 2025 7:57pm Atherosclerosis of coronary artery of [place] heart without angina pectoris chronic March 04, 2025 7:57pm CHF exacerbation chronic February 7:57pm [facility] Work Phone: 1(814) 608-538903-13-2025 Radiology Diagnostic study note [facility] Services [address] [place], [place] [address] CT Chest AND Abd W/ Contrast MR#: [id number] Acct: [id number] Name: PEDRO HILLMAN Rep #: [id number] : 1945 M 79 From: Tom Flores MD PCP: Dr. Tonio Fajardo, Status: REG CLI Study:CT Chest AND Abd W/ Contrast Date of Ex am: 10/30/24 Exam# [id number] Ordering Dr: Frantz Zamora MD PROCEDURE: CT [...] Zamora MD; Dr. Tonio Fajardo DO ~ Shuttle Car Operator: Signed [facility]02-28-2025 Procedure notey [facility] Pulmonary Services/Neurology [address] [place] [address] MR#: [id number] Acct: [id number] Name: PEDRO HILLMAN Rep #:[id number] : 1945 79 From: Tyrell Uriarte DO Referring Dr: Lorie Mart COFFIN MAKER COFFIN MAKER-C Status: REG CLI Location: [facility] Date: Sex: M C PSN 6 Minute Walk Test 6 Minute Walk Test 6 Minute Walk Test: 6 Minute Walk Test PSN:6-Minute Walk Test Start: 10/16/24 13:24 Freq: Status: Active Protocol: RESP.6MINW Document 10/16/24 13:24 [facility] (Rec: 10/16/24 13:34 AMH [id number]) 6 Minute Walk Test Date Performed 10/16/24 [...] Dictated: 10/17/24 1004 Date Transcribed: 10/17/24 1004 Shuttle Car Operator: Dr. Tyrell Uriarte, Signed [facility]02-06-2025 Evaluation note* Diagnosis Onset Date Resolution [...] right lung chronic Marlon h 2024 2:10pm [facility] Work Phone: 1(959) 184-714402-06-2025 Evaluation note* Diagnosis Onset Date Resolution Status [...] right lung chronic Marlon h 2024 1:24pm [facility] Work Phone: 1(615) 596-847810-20-2023 Procedure [facility] 04-18-2023 Progress note Author Joaquim Suárez [facility] April 18, 2023 7:12pm Note Date/Time April 18, 2023 3: 56pm [facility] [address] [place] [address] Progress Note - Wound Care 04/18/23 1549 MR#: [id number] Acct: [id number] Name: PEDRO HILLMAN Rep #:[id number] : 1945 78 From: Joaquim Smith PM [...] Recorded Date Recorded By Document 04/02/23 11:24 [id number] 04/02/23 11:25 PL Document 04/18/23 13:24 [facility] [id number] 04/18/23 13:30 [facility] 04/02/23 04/18/23 11:24 13:24 - Today's Visit Information Type of service Follow-up Visit Follow-up Visit (Physician/DOCUMENT DESIGN SPECIALIST (Physician/DOCUMENT DESIGN SPECIALIST ) ) Arrival Mode Ambulatory,Cane Ambulatory,Cane [...] Recorded By Document 04/18/23 13:24 [facility] [id number] 04/18/23 13:30 [facility] 04/18/23 13:24 Wound [...] Attached -Granulation Amt Large (67-100%) -Granulation Quality [place] -Slough/Fibrin No -Necrosis Amt None Present (0 [...] Recorded Date Recorded By Document 04/02/23 11:42 [id number] 04/02/23 11:53 Document 04/18/23 14:03 [id number] 04/18/23 14:04 04/02/23 04/18/23 11:42 14:03 Wound [...] Recorded Date Recorded By Document 04/02/23 11:54 [id number] 04/02/23 11:54 Document 04/18/23 14:24 [id number] 04/18/23 14:25 RB 04/02/23 04/18/23 11:54 14:24 [...] mellitus with diabetic polyneuropathy QUALIFIERS: Diabetes mellitus cutter first insulin use: with cutter first use Qualified Code(s): E11.42 - Type 2 diabetes mellitus with diabetic polyneuropathy; 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 Tonio Fajardo, DO Status:REG RCR [...] 11:24 04/02/23 11:24 Charges/Coding Procedures Integumentary 111xxx-113xx: 67061 Mihaela subq tissue 20 sq cm/< Debridement [...] Recorded Date Recorded By Document 04/02/23 11:24 [id number] 04/02/23 11:25 PL 04/02/23 11:24 WC - Today's Visit Information Type of service Follow-up Visit (Physician/DOCUMENT DESIGN SPECIALIST ) Arrival Mode Ambulatory,Cane Transfer Assistance [...] Date Recorded By Document 04/02/23 11:42 DORA [id number] 04/02/23 11:53 04/02/23 11:42 Wound Center Nurse [...] Date Recorded By Document 04/02/23 11:54 DORA [id number] 04/02/23 11:54 04/02/23 11:54 Wound Care Center [...] that the wound center will have a home and family living professor, will have the patient see him for further evaluation and treatment. Follow up two weeks. Call or come in sooner if develop any questions or concerns. 04/07/235 <Electronically signed by Bonny Glynn NP [employer]IN [employer]KER-C> Cosigner Signature (if applicable): CC: ~ Signed [facility] Work Phone: 1(348) 314-667407-17-2023 Progress note Author Bonny Glynn [facility] March 05, 2023 1:06pm Note Date/Time March 05, 2023 12:2 9pm [facility] [address] [place] [address] Progress Note - Wound Care 03/05/23 1226 MR#: [id number] Acct: [id number] Name: PEDRO HILLMAN Rep #:[id number] : 1945 78 From: Bonny garcia COFFIN MAKER COFFIN MAKER-C PCP: Dr. Tonio Fajardo, DO Status:REG RCR [...] Method Room Air Charges/Coding Procedures Integumentary 111xxx-113xx: 60475 Mihaela subq tissue 20 sq cm/< Debridement [...] Recorded Date Recorded By Document 02/19/23 13:34 [id number] 02/19/23 13:36 Document 03/05/23 11:26 JACOB [id number] 03/05/23 11:29 02/19/23 03/05/23 13:34 11:26 - Today's Visit Information Type of service Follow-up Visit Follow-up Visit (Physician/DOCUMENT DESIGN SPECIALIST (Physician/DOCUMENT DESIGN SPECIALIST ) ) Arrival Mode Ambulatory Ambulatory,Cane [...] Recorded Date Recorded By Document 02/19/23 13:34 [id number] 02/19/23 13:36 Document 03/05/23 11:26 KW [id number] 03/05/23 11:29 KW 02/19/23 03/05/23 13:34 11:26 [...] Large (67-100%) Small (1-33%) -Granulation Quality [place] -Slough/Fibrin No -Necrosis Amt Small (1-33%) -Structure [...] Recorded Date Recorded By Document 02/19/23 13:37 [id number] 02/19/23 13:39 JF Document 03/05/23 11:37 [id number] 03/05/23 11:46 JF 02/19/23 03/05/23 13:37 11:37 [...] Date Recorded By Document 02/19/23 13:43 MW [id number] 02/19/23 13:44 MW Document 03/05/23 11:53 [facility] [id number] 03/05/23 11:55 BMF 02/19/23 03/05/23 13:43 11:53 [...] 1306 <Electronically signed by Bonny Glynn NP COFFIN MAKER-C> Cosigner Signature (if applicable): CC: ~ Signed [facility] Work Phone: 1(622) 390-964207-03-2023 Progress note [facility] February 19, 2023 2:23pm Note Date/Time February 19, 2023 2:16p m [facility] [address] [place] [address] Progress Note - Wound Care 02/19/23 1412 MR#: [id number] Acct: [id number] Name: PEDRO HILLMAN Rep #:[id number] : 1945 78 From: Bonny garcia NP COFFIN MAKER-C PCP: Dr. Tonio Fajardo, DO Status:REG R [...] 13:34 02/19/23 13:34 Charges/Coding Procedures Integumentary 111xxx-113xx: 17844 Mihaela subq tissue 20 sq cm/< Debridement [...] Date Recorded By Document 02/19/23 13:34 DORA [id number] 02/19/23 13:36 DORA 02/19/23 13:34 - Today's Visit Information Type of service Follow-up Visit (Physician/DOCUMENT DESIGN SPECIALIST ) Arrival Mode Ambulatory Patient Requires [...] Date Recorded By Document 02/19/23 13:34 DORA [id number] 02/19/23 13:36 DORA 02/19/23 13:34 Wound Center [...] Recorded Date Recorded By Document 02/19/23 13:37 [id number] 02/19/23 13:39 02/19/23 13:37 Wound Center Nurse [...] Date Recorded By Document 02/19/23 13:43 MW [id number] 02/19/23 13:44 MW 02/19/23 13:43 Wound Care [...] if develop any questions or concerns. 02/19/23 0484 <Electronically signed by Bonny Glynn NP COFFIN MAKER-C> Cosigner Signature (if applicable): CC: ~ Signed [facility] Work Phone: 1(163) 248-676606-19-2023 Progress note Author Bonny Glynn [facility] February 05, 2023 2:37pm Note Date/Time February 05, 2023 1:59 pm [facility] [address] [place] [address] Progress Note - Wound Care 02/05/23 1359 MR#: [id number] Acct: [id number] Name: PEDRO HILLMAN Rep #:[id number] : 1945 78 From: Bonny garcia COFFIN MAKER COFFIN MAKER-C PCP: Dr. Tonio Fajardo, DO Status:REG RCR Location: History of Present Illness Date of Service: 02/05/23 Chief Complaint: right medial foot ulcer History of Wound: This 78-year-old male returns to the wound healing clinic for reoccurrence of a right medial foot ulcer. Wound care has been Moistened Cass covered with [place] SAP dressing. Patient diabetic neuropathic. Patient dealing [...] Method Room Air Charges/Coding Procedures Integumentary 111xxx-113xx: 39858 Mihaela subq tissue 20 sq cm/< Debridement [...] Date Recorded By Document 01/22/23 13:45 DL [id number] 01/22/23 13:48 DL Document 02/05/23 13:10 [facility] [id number] 02/05/23 13:15 [facility] 01/22/23 02/05/23 13:45 13:10 - Today's Visit Information Type of service Follow-up Visit Follow-up Visit (Physician/DOCUMENT DESIGN SPECIALIST (Physician/DOCUMENT DESIGN SPECIALIST ) ) Arrival Mode Ambulatory Ambulatory,Cane [...] Date Recorded By Document 01/22/23 13:45 DL [id number] 01/22/23 13:48 DL Document 02/05/23 13:10 BMF [id number] 02/05/23 13:15 BMF 01/22/23 02/05/23 13:45 13:10 [...] Present (0 Large (67-100%) %) -Granulation Quality [place] -Slough/Fibrin Yes -Necrosis Amt Small (1-33%) Small [...] Recorded Date Recorded By Document 01/22/23 14:22 [id number] 01/22/23 14:23 01/22/23 14:22 Wound Center Nurse [...] Date Recorded By Document 01/22/23 14:30 DL [id number] 01/22/23 14:31 DL Document 02/05/23 13:49 BMF [id number] 02/05/23 13:49 BMF 01/22/23 02/05/23 14:30 13:49 [...] 1437 <Electronically signed by Bonny Glynn NP COFFIN MAKER-C> Cosigner Signature (if applicable): CC: ~ Signed [facility] Work Phone: 1(309) 278-472006-05-2023 Progress note Author Bonny Glynn [facility] January 22, 2023 3:47pm Note Date/Time January 22, 2023 3:31p m [facility] [address] [place] [address] Progress Note - Wound Care 01/22/23 1529 MR#: [id number] Acct: [id number] Name: PEDRO HILLMAN Rep #:[id number] : 1945 78 From: Bonny garcia COFFIN MAKER COFFIN MAKER-C PCP: Dr. Tonio Fajardo, DO Status:REG RCR Location: History of Present Illness Date of Service: 01/22/23 Chief Complaint: right medial foot ulcer History of Wound: This 78-year-old male returns to the wound healing clinic for reoccurrence of a right medial foot ulcer. Wound care has been Moistened Cass covered with [place] SAP dressing. Patient diabetic neuropathic. Patient dealing [...] 13:45 01/22/23 13:45 Charges/Coding Procedures Integumentary 111xxx-113xx: 17580 Mihaela subq tissue 20 sq cm/< Debridement [...] Date Recorded By Document 01/22/23 13:45 DL [id number] 01/22/23 13:48 DL 01/22/23 13:45 WC - Today's Visit Information Type of service Follow-up Visit (Physician/DOCUMENT DESIGN SPECIALIST ) Arrival Mode Ambulatory Transfer Assistance [...] Date Recorded By Document 01/22/23 13:45 DL [id number] 01/22/23 13:48 DL 01/22/23 13:45 Wound Center [...] Recorded Date Recorded By Document 01/22/23 14:22 [id number] 01/22/23 14:23 01/22/23 14:22 Wound Center Nurse [...] Date Recorded By Document 01/22/23 14:30 DL [id number] 01/22/23 14:31 DL 01/22/23 14:30 Wound Care [...] if develop any questions or concerns. 01/22/23 5152 <Electronically signed by Bonny Glynn NP COFFIN MAKER-C> Cosigner Signature (if applicable): CC: ~ Signed [facility] Work Phone: 1(216) 648-916405-22-2023 Progress note Author Bonnyparris Glynn [facility] January 08, 2023 2:17pm Note Date/Time January 08, 2023 2:10p m [facility] [address] [place] [address] Progress Note - Wound Care 01/08/23 1407 MR#: [id number] Acct: [id number] Name: PDERO HILLMAN Rep #:[id number] : 1945 77 From: Bonny garcia NP COFFIN MAKER-C PCP: Dr. Tonio Fajardo, DO Status:REG RCR Location: History of Present Illness Date of Service: 01/08/23 Chief Complaint: right medial foot ulcer History of Wound: This 77-year-old male returns to the wound healing clinic for reoccurrence of a right medial foot ulcer. Wound care has been Moistened Cass covered with [place] SAP dressing. Patient diabetic neuropathic. Patient dealing [...] 14:53 01/08/23 13:37 Charges/Coding Procedures Integumentary 111xxx-113xx: 60059 Mihaela subq tissue 20 sq cm/< Debridement [...] Date Recorded By Document 12/18/22 13:20 PL [id number] 12/18/22 13:27 PL Document 12/25/22 14:53 DORA [id number] 12/25/22 14:54 DORA Document 01/08/23 13:37 CO [id number] 01/08/23 13:39 AK 12/18/22 12/25/22 01/08/23 13:20 14:53 13:37 - Today's Visit Information Type of service Follow-up Visit Follow-up Visit Follow-up Visit (Physician/DOCUMENT DESIGN SPECIALIST (Physician/DOCUMENT DESIGN SPECIALIST (Physician/DOCUMENT DESIGN SPECIALIST ) ) ) Arrival Mode Ambulatory [...] Date Recorded By Document 12/18/22 13:20 PL [id number] 12/18/22 13:27 PL Document 12/25/22 14:53 [id number] 12/25/22 14:54 JF Document 01/08/23 13:37 CO [id number] 01/08/23 13:39 AK 12/18/22 12/25/22 01/08/23 13:20 [...] (34-66%) Small (1-33%) Medium (34-66%) -Granulation Quality [place] Pale -Slough/Fibrin No Yes Yes -Necrosis Amt [...] Recorded Date Recorded By Document 12/18/22 13:51 [id number] 12/18/22 13:53 Document 12/25/22 15:00 [id number] 12/25/22 15:10 Document 01/08/23 14:01 [id number] 01/08/23 14:02 12/18/22 12/25/22 01/08/23 13:51 15:00 [...] Date Recorded By Document 12/18/22 14:07 PL [id number] 12/18/22 14:07 PL Document 12/25/22 15:20 DL [id number] 12/25/22 15:20 DL 12/18/22 12/25/22 14:07 15:20 [...] 1417 <Electronically signed by Bonny Glynn NP COFFIN MAKER-C> Cosigner Signature (if applicable): CC: ~ Signed [facility] Work Phone: 1(974) 279-759805-14-[address] Ochoa [facility] December 31, 2022 12:58am Note Date/Time December 30, 2022 11:08 pm [facility] Medical Records Department [address] [place] [address] Emergency Department Summary 12/30/22 MR#: [id number] Acct: [id number] Name: PEDRO HILLMAN Rep #:[id number] : 1945 77 From: Chris Ochoa MD [...] similar symptoms: Yes Recent Illness/Hospitalization: No PFSH [facility] Medical History Anemia Atherosclerosis of coronary artery of [place] heart without angina pectoris BPH (benign prostatic [...] extremities. Nontender. No edema. No cellulitis. Normal director institution strength. Normal dorsi plantarflexion. Neurologically is awake [...] 83.3 H Lymph % (Auto) 6.4 L [place] % (Auto) 9.1 Eos % (Auto) 0.2 [...] Color Urine Clarity Urine pH Ur Specific Kimberly Urine Protein Urine Glucose (UA) Urine Ketones Urine Occult Blood Urine Nitrite Urine Bilirubin Urine Urobilinogen Ur Leukocyte Esterase Urine RBC Urine WBC Ur Squamous Epith Cells Urine Bacteria Urine Mucus 12/30/22 12/30/22 22:50 23:59 WBC RBC Hgb Hct MCV MCH MCHC RDW Std Deviation RDW Coeff of Reggie Plt Count MPV Immature Gran % (Auto) Neut % (Auto) Lymph % (Auto) [place] % (Auto) Eos % (Auto) Baso % [...] Clarity Clear Urine pH 7.0 Ur Specific Kimberly 1.005 Urine Protein 100 H Urine Glucose [...] your Primary Care Provider. Call [facility] ([phone]) or report to the closest Emergency Room. Call 911 if necessary. 12/31/22 0058 <Electronically signed by Chris Ochoa MD> Cosigner Signature (if applicable): CC: Dr. Tonio Fajardo, ~ Signed [facility] Work Phone: 1(801) 997-437505-08-2023 Progress note Author Bonny Glynn [facility] December 25, 2022 3:36pm Note Date/Time December 25, 2022 3:36pm [facility] [address] [place] [address] Progress Note - Wound Care 12/25/22 1531 MR#: [id number] Acct: [id number] Name: KADYPEDRO Nora Rep #:[id number] : 1945 77 From: Bonny garcia COFFIN MAKER COFFIN MAKER-C PCP: Dr. Tonio Fajardo DO Status:REG RCR Location: History of Present Illness Date of Service: 12/25/22 Chief Complaint: right medial foot ulcer History of Wound: This 77-year-old male returns to the wound healing clinic for reoccurrence of a right medial foot ulcer. Wound care has been Moistened Cass covered with [place] SAP dressing. Patient diabetic neuropathic. Patient dealing [...] 14:53 12/25/22 14:53 Charges/Coding Procedures Integumentary 111xxx-113xx: 21074 Mihaela subq tissue 20 sq cm/< Debridement [...] Date Recorded By Document 12/18/22 13:20 PL [id number] 12/18/22 13:27 PL Document 12/25/22 14:53 [id number] 12/25/22 14:54 DORA 12/18/22 12/25/22 13:20 14:53 - Today's Visit Information Type of service Follow-up Visit Follow-up Visit (Physician/DOCUMENT DESIGN SPECIALIST (Physician/DOCUMENT DESIGN SPECIALIST ) ) Arrival Mode Ambulatory Ambulatory [...] Date Recorded By Document 12/18/22 13:20 KIM [id number] 12/18/22 13:27 KIM Document 12/25/22 14:53 DORA [id number] 12/25/22 14:54 DORA 12/18/22 12/25/22 13:20 14:53 [...] Amt Medium (34-66%) Small (1-33%) -Granulation Quality [place] -Slough/Fibrin No Yes -Necrosis Amt Medium (34-66%) [...] Recorded Date Recorded By Document 12/18/22 13:51 [id number] 12/18/22 13:53 Document 12/25/22 15:00 [id number] 12/25/22 15:10 12/18/22 12/25/22 13:51 15:00 Wound [...] Date Recorded By Document 12/18/22 14:07 PL [id number] 12/18/22 14:07 PL Document 12/25/22 15:20 DL [id number] 12/25/22 15:20 DL 12/18/22 12/25/22 14:07 15:20 [...] 1536 <Electronically signed by Bonny Glynn NP COFFIN MAKER-C> Cosigner Signature (if applicable): CC: ~ Signed [facility] Work Phone: 1(771) 636-114405-01-2023 Progress note Author Bonny Glynn [facility] December 18, 2022 2:23pm Note Date/Time December 18, 2022 2:23pm [facility] [address] [place] [address] Progress Note - Wound Care 12/18/22 1419 MR#: [id number] Acct: [id number] Name: PEDRO HILLMAN Rep #:[id number] : 1945 77 From: Bonny garcia COFFIN MAKER COFFIN MAKER-C PCP: Dr. Tonio Fajardo, DO Status:REG RCR Location: History of Present Illness Date of Service: 12/18/22 Chief Complaint: right medial foot ulcer History of Wound: This 77-year-old male returns to the wound healing clinic for reoccurrence of a right medial foot ulcer. Wound care has been Moistened Cass covered with [place] SAP dressing. Patient diabetic neuropathic. Patient dealing [...] 13:20 12/18/22 13:20 Charges/Coding Procedures Integumentary 111xxx-113xx: 91955 Mihaela subq tissue 20 sq cm/< Debridement [...] Recorded Date Recorded By Document 12/18/22 13:20 [id number] 12/18/22 13:27 12/18/22 13:20 - Today's Visit Information Type of service Follow-up Visit (Physician/DOCUMENT DESIGN SPECIALIST ) Arrival Mode Ambulatory Transfer Assistance [...] Date Recorded By Document 12/18/22 13:20 KIM [id number] 12/18/22 13:27 12/18/22 13:20 Wound Center Nurse [...] Serosanguineous -Granulation Amt Medium (34-66%) -Granulation Quality [place] -Slough/Fibrin No -Necrosis Amt Medium (34-66%) -Necrotic [...] Recorded Date Recorded By Document 12/18/22 13:51 [id number] 12/18/22 13:53 DORA 12/18/22 13:51 Wound Center [...] Date Recorded By Document 12/18/22 14:07 PL [id number] 12/18/22 14:07 PL 12/18/22 14:07 Wound Care [...] 1423 <Electronically signed by Bonny Glynn NP COFFIN MAKER-C> Cosigner Signature (if applicable): CC: ~ Signed [facility] Work Phone: 1(844) 583-595204-27-2023 Progress note Author Bonny Glynn [facility] December 14, 2022 2:56pm Note Date/Time December 11, 2022 3:2 7pm [facility] [address] [place] [address] Progress Note - Wound Care 12/11/22 1527 MR#: [id number] Acct: [id number] Name: PEDRO HILLMAN Rep #:[id number] : 1945 77 From: Bonny garcia COFFIN MAKER COFFIN MAKER-C PCP: Dr. Tonio Fajardo, DO Status:REG RCR Location: History of Present Illness Date of Service: 12/11/22 Chief Complaint: right medial foot ulcer History of Wound: This 77-year-old male returns to the wound healing clinic for reoccurrence of a right medial foot ulcer. Wound care has been Moistened Cass covered with [place] SAP dressing. Patient diabetic neuropathic. Patient dealing [...] Method Room Air Charges/Coding Procedures Integumentary 111xxx-113xx: 14657 Mihaela subq tissue 20 sq cm/< Debridement [...] Date Recorded By Document 11/20/22 14:43 DL [id number] 11/20/22 14:49 DL Document 11/27/22 14:25 BMF [id number] 11/27/22 14:27 BMF Document 12/06/22 11:35 DL [id number] 12/06/22 11:39 DL Document 12/11/22 13:12 BMF [id number] 12/11/22 13:21 BMF 11/20/22 11/27/22 12/06/22 14:43 14:25 11:35 - Today's Visit Information Type of service Follow-up Visit Follow-up Visit (Physician/DOCUMENT DESIGN SPECIALIST (Physician/DOCUMENT DESIGN SPECIALIST ) ) Arrival Mode Ambulatory,Cane Ambulatory [...] Visit Information Type of service Follow-up Visit (Physician/DOCUMENT DESIGN SPECIALIST ) Arrival Mode Ambulatory,Cane Transfer Assistance [...] Date Recorded By Document 11/20/22 14:43 DL [id number] 11/20/22 14:49 DL Document 11/27/22 14:25 [facility] [id number] 11/27/22 14:27 BMF Document 12/06/22 11:35 DL [id number] 12/06/22 11:39 DL Document 12/11/22 13:12 [facility] [id number] 12/11/22 13:21 BMF 11/20/22 11/27/22 12/06/22 14:43 [...] Amt Small (1-33%) Small (1-33%) -Granulation Quality [place] Pale -Slough/Fibrin -Necrosis Amt Small (1-33%) Small [...] Recorded Date Recorded By Document 11/20/22 15:00 [id number] 11/20/22 15:09 Edit Result 11/20/22 15:00 (1) [id number] 11/20/22 15:18 JF Edit Result 11/20/22 15:00 (2) [id number] 11/20/22 15:20 Document 11/27/22 14:50 [id number] 11/27/22 15:02 Document 12/06/22 11:46 [id number] 12/06/22 11:57 Document 12/11/22 13:30 [id number] 12/11/22 13:33 (1) #9 Right Inferior Hallux [...] => 08/20/27 - Product Lot Number => [id number] - Percent Used => 100 - Lot number of Saline Used => [id number] 11/20/22 11/27/22 12/06/22 15:00 14:50 11:46 Wound [...] Date 08/20/27 08/20/27 09/20/27 -Product Lot Number [id number] -Percent Used 100 100 100 -Lot number of Saline Used [id number] -Bleeding Controlled with Pressure Pressure Pressure -Treatment [...] Date Recorded By Document 11/20/22 15:35 DL [id number] 11/20/22 15:36 DL Document 11/27/22 15:02 JF [id number] 11/27/22 15:03 JF Document 12/06/22 11:57 JF [id number] 12/06/22 11:58 JF Document 12/11/22 13:57 DL [id number] 12/11/22 13:58 DL 11/20/22 11/27/22 12/06/22 15:35 [...] if develop any questions or concerns. 12/14/22 0435 <Electronically signed by Bonny Glynn NP COFFIN MAKER-C> Cosigner Signature (if applicable): CC: ~ Signed [facility] Work Phone: 1(759) 322-677204-19-2023 Progress note Author Bonnyparris Glynn [facility] December 06, 2022 12:09pm Note Date/Time December 06, 2022 12: 09pm [facility] [address] [place] [address] Progress Note - Wound Care 12/06/22 1205 MR#: [id number] Acct: [id number] Name: PEDRO HILLMAN Rep #:[id number] : 1945 77 From: Bonny garcia NP COFFIN MAKER-C PCP: Dr. Tonio Fajardo, DO Status:REG RCR Location: History of Present Illness Date of Service: 12/06/22 Chief Complaint: right medial foot ulcer History of Wound: This 77-year-old male returns to the wound healing clinic for reoccurrence of a right medial foot ulcer. Wound care has been Moistened Cass covered with [place] SAP dressing. Patient diabetic neuropathic. Patient dealing [...] 11:35 12/06/22 11:35 Charges/Coding Procedures Integumentary 150xxx-152xx: 38651 Skin sub graft face/nk/hf/g Debridement Note Debridement [...] Date Recorded By Document 11/20/22 14:43 DL [id number] 11/20/22 14:49 DL Document 11/27/22 14:25 [facility] [id number] 11/27/22 14:27 BM Document 12/06/22 11:35 DL [id number] 12/06/22 11:39 DL 11/20/22 11/27/22 12/06/22 14:43 14:25 11:35 - Today's Visit Information Type of service Follow-up Visit Follow-up Visit (Physician/DOCUMENT DESIGN SPECIALIST (Physician/DOCUMENT DESIGN SPECIALIST ) ) Arrival Mode Ambulatory,Cane Ambulatory [...] Date Recorded By Document 11/20/22 14:43 DL [id number] 11/20/22 14:49 DL Document 11/27/22 14:25 BMF [id number] 11/27/22 14:27 BMF Document 12/06/22 11:35 DL [id number] 12/06/22 11:39 DL 11/20/22 11/27/22 12/06/22 14:43 [...] Amt Small (1-33%) Small (1-33%) -Granulation Quality [place] Pale -Necrosis Amt Small (1-33%) Small (1-33%) [...] Date Recorded By Document 11/20/22 15:00 DORA [id number] 11/20/22 15:09 JF Edit Result 11/20/22 15:00 JF (1) [id number] 11/20/22 15:18 JF Edit Result 11/20/22 15:00 JF (2) [id number] 11/20/22 15:20 JF Document 11/27/22 14:50 JF [id number] 11/27/22 15:02 JF Document 12/06/22 11:46 [id number] 12/06/22 11:57 (1) #9 Right Inferior Hallux [...] => 08/20/27 - Product Lot Number => [id number] - Percent Used => 100 - Lot number of Saline Used => [id number] 11/20/22 11/27/22 12/06/22 15:00 14:50 11:46 Wound [...] Date 08/20/27 08/20/27 09/20/27 -Product Lot Number [id number] -Percent Used 100 100 100 -Lot number of Saline Used [id number] -Bleeding Controlled with Pressure Pressure Pressure -Treatment [...] Recorded Date Recorded By Document 11/20/22 15:35 [id number] 11/20/22 15:36 Document 11/27/22 15:02 [id number] 11/27/22 15:03 Document 12/06/22 11:57 [id number] 12/06/22 11:58 11/20/22 11/27/22 12/06/22 15:35 15:02 [...] 1209 <Electronically signed by Bonny Glynn NP COFFIN MAKER-C> Cosigner Signature (if applicable): CC: ~ Signed [facility] Work Phone: 1(751) 831-994404-11-2023 Progress note Author Bonny Glynn [facility] November 28, 2022 5:24pm Note Date/Time November 27, 2022 3:1 4pm [facility] [address] [place] [address] Progress Note - Wound Care 11/27/22 1513 MR#: [id number] Acct: [id number] Name: PEDRO HILLMAN Rep #:[id number] : 1945 77 From: Bonny garcia NP COFFIN MAKER-C PCP: Dr. Tonio Fajardo, DO Status:REG RCR Location: History of Present Illness Date of Service: 11/27/22 Chief Complaint: right medial foot ulcer History of Wound: This 77-year-old male returns to the wound healing clinic for reoccurrence of a right medial foot ulcer. Wound care has been Moistened Cass covered with [place] SAP dressing. Patient diabetic neuropathic. Patient dealing [...] 14:43 11/27/22 14:25 Charges/Coding Procedures Integumentary 150xxx-152xx: 31445 Skin sub graft face/nk/hf/g Debridement Note Debridement [...] Date Recorded By Document 11/20/22 14:43 DL [id number] 11/20/22 14:49 DL Document 11/27/22 14:25 [facility] [id number] 11/27/22 14:27 BM 11/20/22 11/27/22 14:43 14:25 - Today's Visit Information Type of service Follow-up Visit Follow-up Visit (Physician/DOCUMENT DESIGN SPECIALIST (Physician/DOCUMENT DESIGN SPECIALIST ) ) Arrival Mode Ambulatory,Cane Ambulatory [...] Date Recorded By Document 11/20/22 14:43 DL [id number] 11/20/22 14:49 DL Document 11/27/22 14:25 BM [id number] 11/27/22 14:27 BMF 11/20/22 11/27/22 14:43 14:25 [...] Thickened -Granulation Amt Small (1-33%) -Granulation Quality [place] -Necrosis Amt Small (1-33%) -Necrotic Tissue Type Adherent Slough -Structure Exposed N/A -Texture (Anna-wound Skin Appearance) Callus,Scarring Assessed, Scarring -Moisture (Anna-wound Skin Appearance) No Abnormality Assessed,Dry/ Scaly -Color (Anna-wound Skin Appearance) No Abnormality Assessed -Temperature (Anna-wound Skin No Abnormality No Abnormality Appearance) (Pt Warm) (Pt Warm) -Tenderness on Palpation (Nana-wound No No Skin Appearance) -Ulcer Cleansing Rinsed/ Soap and Water Irrigated with Saline -Foul Odor after Cleansing No No -Anesthetic Used 5% Lidocaine 5% Lidocaine Gel Gel WC - Nurse 2 - General Ulcer CM Notes Start: 11/20/22 14:43 Freq: Status: Active Protocol: Activity Type Activity Date Activity User E-sign Co-sign Detail Recorded Client Recorded Date Recorded By Document 11/20/22 15:00 [id number] 11/20/22 15:09 Edit Result 11/20/22 15:00 JF (1) [id number] 11/20/22 15:18 JF Edit Result 11/20/22 15:00 JF (2) [id number] 11/20/22 15:20 JF Document 11/27/22 14:50 [id number] 11/27/22 15:02 (1) #9 Right Inferior Hallux [...] => 08/20/27 - Product Lot Number => [id number] - Percent Used => 100 - Lot number of Saline Used => [id number] 11/20/22 11/27/22 15:00 14:50 Wound Center Nurse [...] -Expiration Date 08/20/27 08/20/27 -Product Lot Number [id number] -Percent Used 100 100 -Lot number of Saline Used [id number] -Bleeding Controlled with Pressure Pressure -Treatment Response [...] Recorded Date Recorded By Document 11/20/22 15:35 [id number] 11/20/22 15:36 DL Document 11/27/22 15:02 [id number] 11/27/22 15:03 11/20/22 11/27/22 15:35 15:02 Wound [...] 1724 <Electronically signed by Bonny Glynn NP COFFIN MAKER-C> Cosigner Signature (if applicable): CC: ~ Signed [facility] Work Phone: 1(596) 577-283404-10-2023 Progress note Author Bonny Glynn [facility] November 26, 2022 10:29pm Note Date/Time November 20, 2022 4:18 pm [facility] [place] [address] Progress Note - Wound Care 11/20/22 1618 MR#: [id number] Acct: [id number] Name: PEDRO HILLMAN Rep #:[id number] : 1945 77 From: Bonny Gillis COFFIN MAKER COFFIN MAKER-C PCP: Dr. Tonio Fajardo, DO Status:REG RCR Location: History of Present Illness Date of Service: 11/20/22 Chief Complaint: right medial foot ulcer History of Wound: This 77-year-old male returns to the wound healing clinic for reoccurrence of a right medial foot ulcer. Wound care has been Moistened Cass covered with [place] SAP dressing. Patient diabetic neuropathic. Patient dealing [...] 14:43 11/20/22 14:43 Charges/Coding Procedures Integumentary 150xxx-152xx: 39146 Skin sub graft face/nk/hf/g Debridement Note Debridement [...] Date Recorded By Document 11/20/22 14:43 DL [id number] 11/20/22 14:49 DL 11/20/22 14:43 WC - Today's Visit Information Type of service Follow-up Visit (Physician/DOCUMENT DESIGN SPECIALIST ) Arrival Mode Ambulatory,Cane Transfer Assistance [...] Date Recorded By Document 11/20/22 14:43 DL [id number] 11/20/22 14:49 DL 11/20/22 14:43 Wound Center Nurse 1 #9 Right Inferior Hallux -Current Size (cm) - Length 0.2 -Current Size (cm) - Width 0.3 -Current Size (cm) - Depth 0.2 -Total Square Cm 0.06 -Photo Taken No -Exudate Amt Small -Exudate Type Serosanguineous -Wound Margin Thickened -Granulation Amt Small (1-33%) -Granulation Quality [place] -Necrosis Amt Small (1-33%) -Necrotic Tissue Type [...] Date Recorded By Document 11/20/22 15:00 JF [id number] 11/20/22 15:09 JF Edit Result 11/20/22 15:00 JF (1) [id number] 11/20/22 15:18 JF Edit Result 11/20/22 15:00 JF (2) [id number] 11/20/22 15:20 JF (1) #9 Right Inferior [...] => 08/20/27 - Product Lot Number => [id number] - Percent Used => 100 - Lot number of Saline Used => [id number] 11/20/22 15:00 Wound Center Nurse 2 -Time [...] Disc -Expiration Date 08/20/27 -Product Lot Number [id number] -Percent Used 100 -Lot number of Saline Used [id number] -Bleeding Controlled with Pressure -Treatment Response Procedure [...] Date Recorded By Document 11/20/22 15:35 DL [id number] 11/20/22 15:36 DL 11/20/22 15:35 Wound Care [...] 11/26/222228 <Electronically signed by Bonny Glynn NP COFFIN MAKER-C> Cosigner Signature (if applicable): CC: ~ Signed [facility] Work Phone: 1(192) 849-727402-21-2023 Progress note Author Bonny Glynn [facility] October 10, 2022 3:29pm Note Date/Time October 09, 2022 4:10pm [facility] [address] [place] [address] Progress Note - Wound Care 10/09/22 1609 MR#: [id number] Acct: [id number] Name: PEDRO HILLMAN Rep #:[id number] : 1945 77 From: Bonny garcia COFFIN MAKER COFFIN MAKER-C PCP: Dr. Tonio Fajardo, DO Status:REG RCR Location: History of Present Illness Date of Service: 10/09/22 Chief Complaint: right foot ulcer History of Wound: This 77-year-old male returns to the wound healing clinic for reoccurrence of a right medial foot ulcer. Wound care has been Moistened Cass covered with [place] SAP dressing. Patient diabetic neuropathic. Patient dealing [...] Method Room Air Charges/Coding Procedures Integumentary 150xxx-152xx: 34172 Skin sub graft face/nk/hf/g Debridement Note Debridement [...] Date Recorded By Document 09/25/22 14:25 BMF [id number] 09/25/22 14:32 BMF Document 10/02/22 13:28 ML [id number] 10/02/22 13:32 ML Document 10/09/22 12:59 DL [id number] 10/09/22 13:04 DL 09/25/22 10/02/22 10/09/22 14:25 13:28 12:59 WC - Today's Visit Information Type of service Follow-up Visit Follow-up Visit Follow-up Visit (Physician/DOCUMENT DESIGN SPECIALIST (Physician/DOCUMENT DESIGN SPECIALIST (Physician/DOCUMENT DESIGN SPECIALIST ) ) ) Arrival Mode Ambulatory,Cane [...] Date Recorded By Document 09/25/22 14:25 BMF [id number] 09/25/22 14:32 BMF Document 10/02/22 13:28 ML [id number] 10/02/22 13:32 ML Document 10/09/22 12:59 DL [id number] 10/09/22 13:04 DL 09/25/22 10/02/22 10/09/22 14:25 [...] (0 Large (67-100%) %) -Granulation Quality Red [place] -Slough/Fibrin Yes Yes -Necrosis Amt Small (1-33%) [...] Recorded Date Recorded By Document 09/25/22 14:42 [id number] 09/25/22 14:51 Document 10/02/22 14:14 [id number] 10/02/22 14:17 Document 10/09/22 13:17 [id number] 10/09/22 13:26 09/25/22 10/02/22 10/09/22 14:42 14:14 [...] Date 06/20/27 05/20/27 06/20/27 -Product Lot Number [id number] 026 -Percent Used 100 100 100 -Lot number of Saline Used [id number] -Bleeding Controlled with Pressure Pressure Pressure -Treatment [...] Recorded Date Recorded By Document 09/25/22 14:52 [id number] 09/25/22 14:53 Document 10/02/22 14:18 [id number] 10/02/22 14:19 09/25/22 10/02/22 14:52 14:18 Wound [...] positive for Staphylococcus epidermidis and 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 I spoke with his PCP, Dr Fajardo, who was made aware of the results and he said he would treat him from these results. Follow up one week. 10/10/22 1529 <Electronically signed by Bonny Glynn NP COFFIN MAKER-C> Cosigner Signature (if applicable): CC: ~ Signed [facility] Work Phone: 1(375) 648-184102-14-2023 Progress note Author Bonny Glynn [facility] October 03, 2022 4:51pm Note Date/Time September 26, 2022 1 :17pm [facility] [address] [place] [address] Progress Note - Wound Care 09/25/22 1501 MR#: [id number] Acct: [id number] Name: PEDRO HILLMAN Nora Rep #:[id number] : 1945 77 From: Bonny garcia NP COFFIN MAKER-C PCP: Dr. Tonio Fajardo, DO Status:REG RCR Location: ADDENDUM by COFFIN MAKERShaggy Glynn on 10/03/22 at 1651 Addendum [place] [address] Procedures Integumentary 150xxx-152xx: 65748 Skin sub graft face/nk/hf/g 10/03/22 1651<Electronically signed by Bonny Glynn NP COFFIN MAKER-C> Cosigner Signature (if applicable): cc: ~* Signed History of Present Illness Date of Service: 09/25/22 Chief Complaint: right foot ulcer History of Wound: This 77-year-old male returns to the wound healing clinic for reoccurrence of a right medial foot ulcer. Wound care has been Moistened Cass covered with [place] SAP dressing. Patient diabetic neuropathic. Patient dealing [...] Method Room Air Charges/Coding Procedures Integumentary 150xxx-152xx: 11432 Skin sub graft trnk/arm/leg Debridement Note Debridement [...] Recorded By Document 09/25/22 14:25 [facility] [id number] 09/25/22 14:32 [facility] 09/25/22 14:25 - Today's Visit Information Type of service Follow-up Visit (Physician/DOCUMENT DESIGN SPECIALIST ) Arrival Mode Ambulatory,Cane Transfer Assistance [...] Recorded By Document 09/25/22 14:25 [facility] [id number] 09/25/22 14:32 [facility] 09/25/22 14:25 Wound [...] Date Recorded By Document 09/25/22 14:42 DORA [id number] 09/25/22 14:51 DORA 09/25/22 14:42 Wound Center [...] Disc -Expiration Date 06/20/27 -Product Lot Number [id number] -Percent Used 100 -Lot number of Saline Used [id number] -Bleeding Controlled with Pressure -Treatment Response Procedure [...] Date Recorded By Document 09/25/22 14:52 DORA [id number] 09/25/22 14:53 DORA 09/25/22 14:52 Wound Care [...] 1317 <Electronically signed by Bonny Glynn NP COFFIN MAKER-C> Cosigner Signature (if applicable): CC: ~ Signed [facility] Work Phone: 1(958) 786-492702-14-2023 Progress note Author Bonny Glynn [facility] October 03, 2022 4:49pm Note Date/Time October 02, 2022 2:57pm [facility] [address] [place] [address] Progress Note - Wound Care 10/02/22 1457 MR#: [id number] Acct: [id number] Name: PEDRO HILLMAN Rep #:[id number] : 1945 77 From: Bonny garcia COFFIN MAKER COFFIN MAKER-C PCP: Dr. Tonio Fajardo, DO Status:REG RCR Location: History of Present Illness Date of Service: 10/02/22 Chief Complaint: right foot ulcer History of Wound: This 77-year-old male returns to the wound healing clinic for reoccurrence of a right medial foot ulcer. Wound care has been Moistened Cass covered with [place] SAP dressing. Patient diabetic neuropathic. Patient dealing [...] Charges/Coding Visit Charges Office Visits / Consults: 03884 OV L3 Est (25 modifier) Procedures Integumentary 150xxx-152xx: 07481 Skin sub graft face/nk/hf/g Physical Exam Const [...] Date Recorded By Document 09/25/22 14:25 BMF [id number] 09/25/22 14:32 BMF Document 10/02/22 13:28 ML [id number] 10/02/22 13:32 ML 09/25/22 10/02/22 14:25 13:28 - Today's Visit Information Type of service Follow-up Visit Follow-up Visit (Physician/DOCUMENT DESIGN SPECIALIST (Physician/DOCUMENT DESIGN SPECIALIST ) ) Arrival Mode Ambulatory,Cane Cane [...] Recorded By Document 09/25/22 14:25 [facility] [id number] 09/25/22 14:32 BM Document 10/02/22 13:28 ML [id number] 10/02/22 13:32 ML 09/25/22 10/02/22 14:25 13:28 [...] Recorded Date Recorded By Document 09/25/22 14:42 [id number] 09/25/22 14:51 Document 10/02/22 14:14 [id number] 10/02/22 14:17 09/25/22 10/02/22 14:42 14:14 Wound [...] -Expiration Date 06/20/27 05/20/27 -Product Lot Number [id number] -Percent Used 100 100 -Lot number of Saline Used [id number] -Bleeding Controlled with Pressure Pressure -Treatment Response [...] Recorded Date Recorded By Document 09/25/22 14:52 [id number] 09/25/22 14:53 Document 10/02/22 14:18 [id number] 10/02/22 14:19 09/25/22 10/02/22 14:52 14:18 Wound [...] they should go to the ED. 10/03/22 9903 <Electronically signed by Bonny Glynn NP COFFIN MAKER-C> Cosigner Signature (if applicable): CC: ~ Signed [facility] Work Phone: 1(605) 867-576901-10-2023 Progress note Author Bonny [facility] August 29, 2022 3:36pm Note Date/Time August 29, 2022 2 :32pm [facility] [address] [place] [address] Progress Note - Wound Care 08/29/22 1429 MR#: [id number] Acct: [id number] Name: PEDRO HILLMAN Rep #:[id number] : 1945 77 From: Bonny Gillis COFFIN MAKER COFFIN MAKER-C PCP: Dr. Tonio Fajardo, DO Status:REG RCR Location: History of Present Illness Date of Service: 08/29/22 Chief Complaint: right foot ulcer History of Wound: This 77-year-old male returns to the wound healing clinic for reoccurrence of a right medial foot ulcer. Wound care has been Moistened Cass covered with [place] SAP dressing. Patient diabetic neuropathic. Patient dealing [...] Method Room Air Charges/Coding Procedures Integumentary 111xxx-113xx: 65335 Mihaela subq tissue 20 sq cm/< Debridement [...] Recorded By Document 08/29/22 13:17 [facility] [id number] 08/29/22 13:22 [facility] 08/29/22 13:17 - Today's Visit Information Type of service Follow-up Visit (Physician/DOCUMENT DESIGN SPECIALIST ) Arrival Mode Ambulatory,Cane Transfer Assistance [...] Recorded By Document 08/29/22 13:17 [facility] [id number] 08/29/22 13:22 [facility] 08/29/22 13:17 Wound [...] Recorded Date Recorded By Document 08/29/22 13:35 [id number] 08/29/22 13:40 08/29/22 13:35 Wound Center Nurse [...] Recorded Date Recorded By Document 08/29/22 13:47 [id number] 08/29/22 13:47 DL 08/29/22 13:47 Wound Care [...] help expedite wound healing. [facility] Epifix. Wound care - Silvercel as the primary dressing covered with [place] SAP (secondarydressing) daily after washing foot with [...] if develop any questions or concerns. 08/29/22 6416 <Electronically signed by Bonny Glynn NP COFFIN MAKER-C> Cosigner Signature (if applicable): CC: ~ Signed [facility] Work Phone: 1(905) 380-631212-16-2022 Miscellaneous Notes* Telephone Encounter - Liseth Ortiz [...] advise. Jessie Rodriguez APRN.SHANI documented in this encounterP[facility]08-20-2022 Miscellaneous Notes* Telephone Encounter - Ashley Mock - 04/08/2022 2:56 PM EDT Notified pt of results, daughter will call to get information on restrictions. Ashley Mock * Telephone Encounter - Ashley Mock - 04/08/2022 9:18 AM EDT left message on machine to give call back, different number from pharmacy. [phone]. Ashley Mock * Telephone Encounter - Ashley Mock - 04/07/2022 5:48 PM EDT Unable to reach patient. Mailbox full/Mailbox not set up/ Number incorrect. Please try again later. Ashley Mock * Telephone Encounter - Sigrid Monroe LPN - 04/06/2022 6:48 PM EDT Still unable to reach patient and contact center team lead is spouse with same number.Sigrid Monroe LPN [...] symptoms; ER if severe. documented in this encounterPomerene Hospital08-17-2022 NoteHNO ID: [id number] Author: Jessie Rodriguez APRN.DOCUMENT DESIGN SPECIALIST Service: ? Author Type: Nurse Practitioner [...] - COVID WITH FLUA+B, ROUTINE Jessie Praisler-Wood, STEEL BUFFER.CNPSt. Anthony'S Hospital08-17-2022 NoteHNO ID: [id number] Author: RT Jose Eduardo(R) Service: Nuclear Medicine [...] RT Jose Eduardo(R) April 05, 2022 1:55 [facility]08-17-2022 Influenza virus A and B RNA and SARS-CoV-2 (COVID-19) N gene panel BRYAN+probe (Resp)COVID 19 RESULT: SARS-CoV-2 (Agent of COVID-19) Detected by RT-PCR or equivalent method. anatoly RVWV-CaM-1_[employer] (YASMEEN)_EUA This test was developed and its performance characteristics determined by [facility] [place]. This test has been authorized by FDA under an Emergency Use Authorization (EUA). This test has been validated in accordance with the FDA's Guidance Document Policy for DiagnosticsTesting in Laboratories Certified to Perform High Complexity Testing under CLIA prior to Emergency use Authorization for Coronavirus Disease 2019 during the Public Health Emergency issued on October 18, 2019. Test performed by [facility], [facility]ology and Laboratory Medicine [place], [address] [place] [address]. INFLUENZA A PCR: Negative for Influenza A by RT-PCR INFLUENZA B PCR: Negative for Influenza B by [facility]-PCRC[facility] on above: Performed By: #### 98744-2 #### [facility] CLIA [id number] [address] [place] [address] [place] [id number] Miscellaneous Notes* Telephone Encounter - Jessie Rodriguez APRN.CNP - 04/05/2022 2:58 PM EDT Radiology report faxed to patient's PCP Dr. Tonio Fajardo at [phone]. Confirmation of fax received. Patient was advised to call Dr. Fajardo today for a follow up appointment. Jessie Rodriguez APRN.CNP documented in this encounterPomerene Hospital08-17-2022 Instructions* Patient Instructions* Jessie Rodriguez APRN.CNP [...] - COVID WITH FLUA+B, ROUTINE Jessie Rodriguez APRN.DOCUMENT DESIGN SPECIALIST documented in this encounterPomerene Hospital08-17-2022 History of Present illness Narrative* Jessie [...] (primary diagnosis) acute - UA positive for amrcela esterase, hematuria, and proteinuria - Send urine [...] ROUTINE Jessie Rodriguez APRN.SHANI documented in this encounterPomerene Hospital08-17-2022 History of Present illness Narrative* Yuliana [...] 05, 2022 1:55 PM [facility] note Author Mala Diamond [facility] Note Date/Time March 09, 2025 2:58 pm [facility] Medical Records Department [address] [place] [address] Counseling Note - Pharmacy 03/09/25 1457 MR#: [id number] Acct: [id number] Name: PEDRO HILLMAN Rep #:[id number] : 1945 80 From: Mala Diamond PCP: Dr. 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 Venous insufficiency chronic Ulcer of right foot with fat layer exposed resolved [facility] Work Phone: Evaluation note* Diagnosis Onset [...] right foot with fat layer exposed resolved [facility] Work Phone: Evaluation note* Diagnosis Onset [...] right foot with fat layer exposed resolved [facility] Work Phone: Evaluation note* Diagnosis Onset [...] 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 [facility] Work Phone: Evaluation note* Diagnosis Onset [...] right foot with fat layer exposed resolved [facility] Work Phone: Evaluation note* Diagnosis Burning with urination- Primary Dysuria Acute cough Suspected COVID-19 virus infection documented [facility] encounter [facility]* Diagnosis Onset Date Resolution Status [...] acute Nicotine dependence, cigarettes, in remission acute [facility] Work Phone: Evaluation note* Diagnosis Onset [...] right foot with fat layer exposed resolved [facility] Work Phone: Evaluation note* Diagnosis Onset [...] right foot with fat layer exposed resolved [facility] Work Phone: Evaluation note* Diagnosis Onset [...] of upper lobe of right lung acute [facility] Work Phone: Evaluation note* Diagnosis Onset [...] of upper lobe of right lung acute [facility] Work Phone: Evaluation note* Diagnosis Onset [...] of upper lobe of right lung acute [facility] Work Phone: Evaluation note* Diagnosis Onset [...] chronic Presence of aortocoronary bypass graft 2012 [facility] Work Phone: Evaluation note* Diagnosis Onset Date [...] right foot with fat layer exposed chronic [facility] Work Phone: Evaluation note* Diagnosis Onset [...] right foot with fat layer exposed chronic [facility] Work Phone: Evaluation note* Diagnosis Onset [...] layer exposed chronic Shortness of breath chronic [facility] Work Phone: Evaluation note* Diagnosis Onset [...] of upper lobe of right lung chronic [facility] Work Phone: Evaluation note* Diagnosis Onset [...] of upper lobe of right lung chronic [facility] Work Phone: Evaluation note* Diagnosis Onset [...] right foot with fat layer exposed chronic [facility] Work Phone: Evaluation note* Diagnosis Onset [...] right foot with fat layer exposed chronic [facility] Work Phone: Evaluation note* Diagnosis Onset [...] right foot with fat layer exposed chronic [facility] Work Phone: Evaluation note* Diagnosis Onset [...] right foot with fat layer exposed chronic [facility] Work Phone: Evaluation note* Diagnosis Onset [...] right foot with fat layer exposed chronic [facility] Work Phone: Evaluation note* Diagnosis Onset [...] right foot with fat layer exposed resolved [facility] Work Phone: Evaluation note* Diagnosis Onset [...] right foot with fat layer exposed chronic [facility] Work Phone: Evaluation note* Diagnosis Onset [...] of upper lobe of right lung chronic [facility] Work Phone: Evaluation note* Diagnosis Onset Date Resolution Status Irregular heart rate acute COPD (chronic obstructive pulmonary disease) chronic 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 Plenty of fluids and rest today do not get dehydrated. Return if you are feeling a lot worse or too weak to get around her house. Follow-up with your doctor in the next several days to ensure you are improving. [facility] Work Phone: Hospital Discharge instructions Additional Instructions 1. Keep your postoperative dressing clean dry and intact 2. Continue strict glycemic control. 3. Partial weightbearing to heel with surgical shoe, use walker or crutches 4. Reach out to Dr. Suárez with any questions or concerns and follow-up in 1 week in clinic. [facility]: Reason for referral (narrative)No reason for referral information [facility] Work Phone: Chief Complaint and Reason [...] 04 7:57pm Atherosclerosis of coronary artery of [place] heart without angina pectoris March 04, 2025 [...] 2025 7:57pm Atherosclerosis of coronary artery of [place] heart without angina pectoris March 04, 2025 [...] 15, 2025 4:56 pm 6 M FU/S/P [facility] 03/09March 17, 2025 12: 51pm Reason [...] 2025 7:57pm Atherosclerosis of coronary artery of [place] heart without angina pectoris March 04, 2025 [...] 15, 2025 4:56 pm 6 M FU/S/P [facility] 03/09March 17, 2025 12: 51pm atrial fibrillation March 27, 2025 8:3 7am Advance Directives No Advanced Directives Records Found Advance Directive Response Recorded Date/ Time Advance Directives No February 17 4 11:03am Living Will No February 17, 2014 1 1:03am Power of Fire Control Officer No February 17, 2014 11:03am Advance Directive Response Recorded Date/ Time Name of Medical Power of Fire Control Officer SON April 14, 2022 8:29am Advance Directives No February 17 4 11:03am Living Will No April 14 2 8:29am Power of Fire Control Officer Yes April 14 022 8:29am Advance Directive Response Recorded Date/ Time Name of Medical Power of Fire Control Officer SON April 14, 2022 7:29am Advance Directives No February 17 4 10:03am Living Will No April 14 2 7:29am Power of Fire Control Officer Yes April 14 022 7:29am Advance Directive Response Recorded Date/ Time Advance Directives No February 17 4 10:03am Living Will No April 14 2 7:29am Power of Fire Control Officer Yes April 14 7:29am Advance Directive Response Recorded Date/ Time Advance Directives No February 17 11:03am Living Will No April 14 8:29am Power of Fire Control Officer Yes April 14 8:29am Advance Directive Response Recorded Date/ Time Name of Medical Power of Fire Control Officer Gideon Yumiko December 30, 2022 10:39pm Advance Directives No February 17 11:03am Living Will Yes December 30, 2022 1 0:39pm Power of Fire Control Officer Yes December 30, 2022 10:39pm Advance Directive Response Recorded Date/ Time Advance Directives No February 17 11:03am Living Will Yes December 30, 2022 1 0:39pm Power of Fire Control Officer Yes December 30, 2022 10:39pm Advance Directive Response Recorded Date/ Time Advance Directives No February 17 10:03am Living Will Yes December 30, 2022 9 :39pm Power of Fire Control Officer Yes December 30, 2022 9:39pm Advance Directive Response Recorded Date/ Time Living Will Yes December 30, 2022 1 0:39pm Power of Fire Control Officer Yes December 30, 2022 10:39pm Advance Directives No February 17 11:03am Advance Directive Response Recorded Date/ Time Living Will Yes December 30, 2022 1 0:39pm Do you have a Healthcare Power of Fire Control Officer? Yes December 30, 2022 10:39pm Living Will No April 14 8:29am Do you have a Healthcare Power of Fire Control Officer? Yes April 14, 2022 8:29am Advance Directives No February 17 11:03am Advance Directive Response Recorded Date/ Time Living Will No April 14 8:29am Do you have a Healthcare Pow er of Fire Control Officer? Yes April 14, 2022 8:29am Do you have a Healthcare Pow er of Fire Control Officer? Yes March 04, 2025 2:58pm Name of Medical Power of Fire Control Officer Ed Daja olmstead March 04, 2025 2:58pm Advance Directives No February 17 11:03am Advance Directive Response Recorded Date/ Time Do you have a Healthcare Power of Fire Control Officer? Yes March 04, 2025 9:11pm Name of Medical Power of Fire Control Officer Gideon olmstead March 04, 2025 2:58pm Advance Directives No February 17 4 11:03am Advance Directive Response Recorded Date/ Time Do you have a Healthcare Power of Fire Control Officer? Yes March 04, 2025 9:11pm Name of Medical Power of Fire Control Officer Gideon olmstead March 04, 2025 2:58pm Do you have a Healthcare Power of Fire Control Officer? Yes March 15, 2025 5:04pm Name of Medical Power of Fire Control Officer Gideon Farnsworth March 15, 2025 5:04pm Advance [...] or prosecute any alcohol or drug abuse patient.[facility] the event this information is protected by the Federal Confidentiality of Alcohol and Drug Abuse Patient Records regulations: The Federal rules restrict any use of the information to criminally investigate or prosecute any alcohol or drug abuse patient.[facility] the event this information is protected by the Federal Confidentiality of Alcohol and Drug Abuse Patient Records regulations: The Federal rules restrict any use of the information to criminally investigate or prosecute any alcohol or drug abuse patient.[facility] the event this information is protected by the Federal Confidentiality of Alcohol and Drug Abuse Patient Records regulations: The Federal rules restrict any use of the information to criminally investigate or prosecute any alcohol or drug abuse patient.[facility] the event this information is protected by the Federal Confidentiality of Alcohol and Drug Abuse Patient Records regulations: The Federal rules restrict any use of the information to criminally investigate or prosecute any alcohol or drug abuse patient.[facility] Reason for Visit (unrecogniz ed section and content) Reason Comments Results Reason Comments Urinary Problem burning with urinati on x 1 week nasal congestion and drainage x 1 week Reason Comments Results COVID+ Reason Comments Patient Update Care Teams (unrecognized sec tion and content) Rail Bonder Relationship Specialty Start Date End Date Tonio Fajardo, [address] [place], [place] [id number] PCP - General Family Practice 04/05/22 Rail Bonder Relationship Specialty Start Date End Date Tonio Fajardo [address] [place], [place] [id number] PCP - General Family Practice 04/05/22 Rail Bonder Relationship Specialty Start Date End Date Tonio Fajardo [address] [place], [place] [id number] PCP - General Family Practice 04/05/22 Rail Bonder Relationship Specialty Start Date End Date Tonio FajardoDO [address] [place], [place] [id number] PCP - General Family Medicine 04/05/22 Team Status: Active Member Role Status Dates Dr. Tonio Fajardo DO Family Provider Active Dr. Tonio Fajardo DO Primary Care Provider Active Team Status: Inactive Member Role Status Dates Dr. Tonio Fajardo , DO Primary Care Provider, Referrin g Provider Active Iker Rodriguez COFFIN MAKER, COFFIN MAKER-C Attending Provider Active Team Status: Inactive Member [...] DO Primary Care Provider Active Bonny Glynn COFFIN MAKER, COFFIN MAKER-C Attending Pro vider, Referring Provider, Other Provider [...] DO Primary Care Provider Active Bonny Glynn COFFIN MAKER, COFFIN MAKER-C Attending Provider Active Team Status: Active Member Role Status Dates Dr. Tonio Fajardo DO Primary Care Provider Active Dr. Russ Zamora MD Attending Provider Active Team Status: Inactive Member Role Status Dates Dr. Tonio Fajardo , DO Primary Care Provider Active Dr. Russ Zaomra MD Attending Provider Active Team Status: Active Member Role Status Dates Dr. Tonio Fajardo , DO Primary Care Provider Active Bonny Glynn COFFIN MAKER, COFFIN MAKER-C Attending Provider Active Team Status: Inactive Member Role Status Dates Dr. Tonio Fajardo , DO Primary Care Provider Active Bonnyap PeresRenard COFFIN MAKER, COFFIN MAKER-C Attending Provider, Referri ng Provider Active Team Status: Inactive Member Role Status Dates Dr. Tonio Fajardo , DO Primary Care Provider, Referrin g Provider Active Dr. Tyrell Uriarte DO Attending Provider Active Team Status: Active Member Role Status Dates Dr. Tonio Fajardo , DO Primary Care Provider Active Bonny Glynn COFFIN MAKER, COFFIN MAKER-C Attending Provider, Other P rovider Active Team [...] Provider, Referrin g Provider Active Bonny Glynn COFFIN MAKER, COFFIN MAKER-C Attending Provider Active Team Status: Inactive Member [...] Provider, Referrin g Provider Active Lorie Mart COFFIN MAKER, COFFIN MAKER-C Attending Provider Active Team Status: Inactive Member Role Status Dates Dr. Tonio Fjaardo DO Primary Care Provider, Referrin g Provider Active Leslie DAMIAN PA Attending Provider Active Team Status: Inactive Member Role Status Dates Dr. Tonio Fajardo DO Primary Care Provider Active Lorie Mart COFFIN MAKER, COFFIN MAKER-C Attending Provider, Referrin g Provider Active Team Status: Active Member Role Status Dates Dr. Tonio Fajardo DO Primary Care Provider Active Dr. Issa Lonoey MD Attending Provider Active Team Status: Inactive Member Role Status Dates Dr. Tonio Fajardo DO Primary Care Provider Active Leslie DAMIAN PA Attending Provider, Referr ing Provider Active Team Status: Inactive Member Role Status Dates Dr. Tonio Fajardo DO Primary Care Provider Active Dr. Joaquim Suárez DPM Attending Provider Active Rail Bonder Relationship Specialty Start Date End Date Tonio Fajardo DO [address] [place] [address] PCP - General Family Medicine 04/05/22 Team [...] 2024 End: October 16, 2024 Lorie Mart COFFIN MAKER, COFFIN MAKER-C Attending Provider Active Start: October 16, 2024 End: October 16, 2024 Lorie Mart COFFIN MAKER, COFFIN MAKER-C Referring Provider Active Start: October 16, 2024 End: October 16, 2024 Team Status: Active Member Role Status Dates Dr. Tonio Fajardo DO Primary Care Provider Active Start: October 17, 2024 Lorie Mart COFFIN MAKER, COFFIN MAKER-C Referring Provider Active Start: October 17, 2024 Lorie Mart COFFIN MAKER, COFFIN MAKER-C Other Provider Active Start: October 17, 2024 [...] 2024 End: October 23, 2024 Lorie Mart COFFIN MAKER, COFFIN MAKER-C Attending Provider Active Start: October 23, 2024 [...] Active S tart: March 04, 2025 Dr. Nciola Lindsey DO Admit Provider Active Start: March [...] End: March 09, 2025 Iker Stephens Michael COFFIN MAKER, COFFIN MAKER-C Other Provider Active Start : March 04, [...] Start: March 05, 2025 Iker Angelo Michael COFFIN MAKER, COFFIN MAKER-C Other Provider Active Start : March 05, [...] Start : March 06, 2025 Dr. Nicolette Mcdoanld MD Other Provider Active St art: March [...] Active Start: March 06, 2025 Iker Rodriguez COFFIN MAKER, COFFIN MAKER-C Other Provider Active Start : March 06, [...] Active Start: March 06, 2025 Iker Rodriguez COFFIN MAKER, COFFIN MAKER-C Other Provider Active Start : March 06, 2025 Leslie DAMIAN, PA Other Provider Active Start: March 06, 2025 RICKIE Cummins Other Provider Active Start: March 06, 2025 Team Status: Active Member Role/Relationship Status Dates Dr. Tonio Fajardo DO Primary Care Provider Active Start: March 07, 2025 Dr. Chris Ohcoa MD Emergency Provider Active S tart: March [...] Active Start: March 07, 2025 Iker Rodriguez COFFIN MAKER, COFFIN MAKER-C Other Provider Active Start : March 07, [...] Active Start: March 08, 2025 Iker Rodriguez COFFIN MAKER, COFFIN MAKER-C Other Provider Active Start : March 08, [...] Active Start: March 08, 2025 Iker Rodriguez COFFIN MAKER, COFFIN MAKER-C Other Provider Active Start : March 08, [...] Active Start: March 09, 2025 Iker Rodriguez COFFIN MAKER, COFFIN MAKER-C Other Provider Active Start : March 09, [...] Active Start: March 09, 2025 Iker Rodriguez COFFIN MAKER, COFFIN MAKER-C Other Provider Active Start : March 09, [...] section and content) DATE CREATED AUTHOR 08/12/2022 [facility] DATE CREATED AUTHOR 'S YAMILKA LEMUS 04/04/2025 [facility] FOR RECORDS PERTAINING TO PATIENTS WHO [...] BE BASED ON THE PRIMARY CLINICAL RECORDS. [employer] provides no warranty or guarantee of the accuracy or completeness of information in this document.
[2025-04-05 20:36] LABS: Magnesium 2.5 mg/dL (1.5-2.2)
[2025-04-05] MEDS: APIXABAN 2.5 MG TABLET (WCH) PO (21:13)
[2025-04-05 21:29] LABS: Allen Test Positive; Base Excess 7 mmol/L (-2 to +2); FI02 6.0; PO2 71 mmHG (75-100); SITE R Radial; SO2 93 % (95-99)
[2025-04-05 21:39] LABS: Troponin T High Sens 4 HR 60 ng/L (<=22)
[2025-04-05] MEDS: Albumin Human 25% (50 mL) 12.5 GM/50 ML IV.SOLN IV (21:44)
[2025-04-05] MEDS: 0.9% Saline Lock 10 ML Syringe IV (21:44)
[2025-04-05 21:54] LABS: Mucous, Urine 0 SEEN /hpf (<or=2+)
[2025-04-05 21:56] LABS: Color, Urine Yellow (Yellow); Glucose, Dipstick Normal (Normal); Ketone-Dipstick Negative (Negative); Leukocyte Esterase-Dipstick 500 /ul (Negative); Nitrite-Dipstick Negative (Negative); Occult Blood-Urine 10 /ul (Negative); Protein-Dipstick 100 mg/dl (Negative); Specific Gravity, Urine 1.015 (1.002-1.030); Urine Bilirubin Dipstick Negative (Negative)
[2025-04-05 22:07] LABS: Red Blood Cells-Urine 0-5 SEEN /hpf (0-5); Squamous Epithelial Cells - UA 0-5 SEEN /hpf (0-5)
[2025-04-06] VITALS (21 sets, daily range): BP systolic 97–146; BP diastolic 53–114; PULSE 100–116; RESP 12–33; TEMP 36.6–36.9; O2SAT 87–100; BMI 27.2
--- NOTE | 2025-04-06 04:13 | RAD_ITS ---
PROCEDURE: CHEST 1 VIEW (PORTABLE) 04/06/2025 REASON FOR EXAM: AE CHF TECHNIQUE: Frontal view of the chest. COMPARISON: 04/05/2025. FINDINGS: Unchanged bilateral pleural effusions. Unchanged passive atelectatic airspace disease of the lower lobes. Unremarkable median sternotomy wires. Minimal decrease in pulmonary congestion/infiltrates. Enlarged cardiac silhouette. Normal mediastinum and jairo. Normal visualized pulmonary arteries. Atheromatous plaques of the visualized aortic arch and descending thoracic aorta. Diffuse spondylosis of the visualized thoracic spine. Normal visualized ribs, clavicles. Degenerative joint disease. There is no demonstrated abnormality of the visualized soft tissue structures of the upper abdomen. RAD/Chest 1 View (Portable) IMPRESSION: Unchanged bilateral pleural effusions. Unchanged passive atelectatic airspace disease of the lower lobes. Unremarkable median sternotomy wires. Minimal decrease in pulmonary congestion/infiltrates. Enlarged cardiac silhouette. Reading [facility]
[2025-04-06 05:19] LABS: Hematocrit 26.3 % (40-54); Hemoglobin 7.9 g/dL (13.0-16.5); Immature Granulocytes Count 0.050 X10^3/uL (0.0-0.0); Mean Corp Hgb Conc 30.0 g/dL (32-36); Mean Corpuscular Volume 89.5 fL (80-94); Mean Platelet Vol. 10.4 fl (6.2-12.0); NRBC Flagged by Analyzer 0 % (0-5); POSITIVE DIFFERENTIAL YES; Platelet Count 178 K/mm3 (150-450); RBC Distribution Width CV 16.8 % (11.6-14.6); RBC Distribution Width SD 54.7 fl (35.1-43.9); Red Blood Count 2.94 M/mm3 (4.6-6.2); White Blood Count 7.8 K/mm3 (4.4-11.0)
[2025-04-06 05:44] LABS: Pro- Brain NATRIURETIC PEPTIDE 4038 pg/mL (<=1800)
[2025-04-06 05:47] LABS: AST(SGOT) 19 U/L (<=37); Alanine Aminotransfer ALT/SGPT 13 U/L (<=46); Albumin, Serum 3.3 g/dL (3.4-4.8); Alkaline Phosphatase 70 U/L (40-129); Anion Gap 10 (5-15); BUN 58 mg/dL (4-19); BUN/Creat Ratio 22.8 RATIO (10-20); Calcium,Total 8.8 mg/dL (7.6-11.0); Carbon Dioxide 27.9 mmol/L (21.0-32.0); Chloride 100 mmol/L (98-108); Estimated Creatinine Clearance 22.79 ml/min (50-250); Globulin 3.5 g/dL (2.2-4.2); Glucose 102 mg/dL (70-99); Potassium 4.7 mmol/L (3.3-5.1)
[2025-04-06] MEDS: 0.9% Normal Saline (250mL Bag) 250 ML 15 ML IV (05:48)
--- NOTE | 2025-04-06 08:37 | PN.HOSP_ITS ---
Reason for Visit Chief Complaint: SOB, Cough and Hypotension. Objective Data Objective Data Vital Signs: Vital Signs Temp Pulse Resp BP Pulse Ox O2 Del Method O2 Flow Rate 98.1 F 106 H 24 H 106/53 L 92 High Flow 8 04/06/25 03:00 04/06/25 06:10 04/06/25 06:10 04/06/25 03:00 04/06/25 06:10 04/06/25 06:10 04/06/25 06:10 Oxygen Flow Rate (L/min) 8 Oxygen Delivery Method High Flow Weight: 168 lb 13.985 oz Body Mass Index (BMI) 27.2 Intake & Output: Intake and Output for Last 24 Hours 04/04/25 04/05/25 04/06/25 23:59 23:59 23:59 Intake Total 300 / 300 50 / 50 Output Total 500 / 500 Balance 300 / 300 -450 / -450 Lab / Micro Data 04/06/25 04:58 04/06/25 04:58 Labs: Laboratory Results - last 24 hr 04/05/25 17:10: WBC 8.7, RBC 3.27 L, Hgb 8.9 L, Hct 29.0 L, MCV 88.7, MCH 27.2, MCHC 30.7 L, RDW Std Deviation 55.5 H, RDW Coeff of Reggie 17.1 H, Plt Count 226, MPV 11.1, Immature Gran % (Auto) 0.700, Neut % (Auto) 79.7 H, Lymph % (Auto) 7.3 L, [place] % (Auto) 10.7 H, Eos % (Auto) 1.0, Baso % (Auto) 0.6, Absolute Neuts (auto) 7.0, Absolute Lymphs (auto) 0.64 L, Nucleated RBC % 0.2, Sodium 134, P otassium 5.8 H, Chloride 97 L, Carbon Dioxide 26.7, Anion Gap 11, BUN 60 H, C reatinine 2.57 H, Estim Creat Clear Calc 22.62 L, Est GFR (MDRD) Non-Af 25 L, B UN/Creatinine Ratio 23.2 H, Glucose 164 H, Calcium 8.8, Troponin T High Sens 64 H* D, NT pro BNP II 4003 H 04/05/25 17:50: POC Glucose 147 H 04/05/25 19:10: Magnesium 2.5 H, Troponin T Hi Sens 2 Hr 62 H*, TSH 3.830 04/05/25 20:59: Troponin T Hi Sens 4Hr 60 H* 04/05/25 21:11: POC Glucose 76 04/05/25 21:49: Urine Color Yellow, Urine Clarity Clear, Urine pH 5.0, Ur Specific [place] 1.015, Urine Protein 100 H, Urine Glucose (UA) Normal, Urine Ketones Negative, Urine Occult Blood 10 H, Urine Nitrite Negative, Urine Bilirubin Negative, Urine Urobilinogen Normal, Ur Leukocyte Esterase 500 H, Urine RBC 0-5 SEEN, Urine WBC 5-10 SEEN, Ur Squamous Epith Cells 0-5 SEEN, Urine Bacteria 2+, Urine Mucus 0 SEEN 04/06/25 02:22: POC Glucose 112 H 04/06/25 04:58: WBC 7.8, RBC 2.94 L, Hgb 7.9 L, Hct 26.3 L, MCV 89.5, MCH 26.9 L , MCHC 30.0 L, RDW Std Deviation 54.7 H, RDW Coeff of Reggie 16.8 H, Plt Count 178, MPV 10.4, Immature Gran % (Auto) 0.600, Neut % (Auto) 81.9 H, Lymph % (Auto) 6.4 L, [place] % (Auto) 10.1 H, Eos % (Auto) 0.5, Baso % (Auto) 0.5, Absolute Neuts (auto) 6.4, Absolute Lymphs (auto) 0.50 L, Nucleated RBC % 0, Sodium 138, Potassium 4.7, Chloride 100, Carbon Dioxide 27.9, Anion Gap 10, BUN 58 H, C reatinine 2.52 H, Estim Creat Clear Calc 22.79 L, Est GFR (MDRD) Non-Af 25 L, B UN/Creatinine Ratio 22.8 H, Glucose 102 H, Calcium 8.8, Phosphorus 5.4 H, Total Bilirubin 0.40, AST 19, ALT 13, Alkaline Phosphatase 70, NT pro BNP II 4038 H, Total Protein 6.8, Albumin 3.3 L, Globulin 3.5, Albumin/Globulin Ratio 0.9 04/06/25 06:22: POC Glucose 116 H Micro: Microbiology 04/05/25 17:05 Mucosa - Nose SARS-CoV-2, Influenza & RSV (PCR) - Final ABG Data ABG results: ABG 04/05/25 21:25 Specimen Type ART Sample Site R Radial pH 7.36 Bicarbonate Actual 32.4 H Total CO2 34 Base Excess 7 H O2 Saturation 93 L O2 % 6.0 ABG pCO2 57.1 H ABG pO2 71 L Jg Test Positive O2 Delivery Device Cannula Vent Mode Not entered Radiography Diagnostic Testing: Radiology Impression Chest X-Ray 04/05/25 17:25 IMPRESSION: CHF with moderate right and small left pleural effusions/atelectasis, and pulmonary edema. Underlying infectious/inflammatory process cannot be reliably excluded. Reading Location: [id number] Chest X-Ray 04/06/25 04:13 IMPRESSION: Unchanged bilateral pleural effusions. Unchanged passive atelectatic airspace disease of the lower lobes. Unremarkable median sternotomy wires. Minimal decrease in pulmonary congestion/infiltrates. Enlarged cardiac silhouette. Reading Location: [place] [id number] Physical Exam Narrative Seen and examined Patient still short of breath, shallow breathing tachypneic. On 8 L of oxygen. He states he has sometimes cough and occasionally brings up phlegm whitish color. No fever. Denies chest pressure or pain. He also had a bone on the right upper thigh due to grease/chemical about 1 week ago Physical exam General: Alert, Oriented x3, Cooperative HEENT: Atraumatic, PERRLA, EOMI, Normocephalic. Oral: No Gingival or Mucosal Lesions/ Ulcerations Neck: Supple, No JVD, Negative Carotid Bruits Chest wall/Lungs: Air entry diminished in bilateral lung bases. No crepitation/rhonchi Cardiovascular: Regular rate and rhythm, Normal S1,S2, systolic murmur Abdomen: Bowel Sounds Present, Soft, Non Tender, Non-Distended : No dysuria. No renal angle tenderness. No suprapubic tenderness. Extremities: No edema, Capillary Refill Less than 3 Seconds Skin: Superficial ulcer with slough on the right upper thigh. Chronic venous hypertensive changes in lower legs. No edema. Scab present in bilateral lower leg. Musculoskeletal: No Tenderness to Palpation of Joints or Extremities Neurological: Cranial nerves II-XII grossly intact, DTR 2+/4. No acute focal neurological deficit. Psych/Mental Status: Normal Affect, Appropriate. Assessment & Plan Assessment/Plan (1) Acute on chronic diastolic congestive heart failure: (2) Elevated troponin: (3) Presence of aortocoronary bypass graft: (4) Hyperkalemia: (5) CKD (chronic kidney disease), stage IV: (6) Respiratory insufficiency: (7) Acute cystitis without hematuria: (8) Chronic atrial fibrillation: (9) Chronic anticoagulation: (10) Overweight (BMI 25.0-29.9): PLAN: Plan 80-year-old gentleman being brought to ED by EMS for hypotension, SBP 85 mmHg, pulse ox 88% on 3 L of oxygen, chronic baseline home oxygen requirement with increasing productive cough. Patient's [id number] increased O2 to 4 L. No leg swelling. 1. Acute on chronic HFpEF: Patient is being admitted in the PCU. proBNP 4003. Chest x-ray initially shows moderate right and small left pleural effusion and atelectasis and pulmonary edema. Serial troponins 64, 62 and 60 flat and indeterminate and not indicative of ACS.2D echo 03/05 reported EF 55%, PASP 42 mmHg with moderate TR, moderate UT and mild PI. TSH normal Plan: Patient is started on furosemide 40 mg IV twice daily. Heart failure core measures including intake and output, fluid restriction less than 1500 mL, daily weight monitoring, kidney and electrolytes monitoring. 2. Persistent trial flutter/atrial fib: Currently patient in sinus rhythm. On desk monitor sinus rhythm 105 bpm. During previous admission patient has prolonged hospital course of A-fib RVR/flutter, and severe bradycardia therefore clinical diagnosis of tachybradycardia syndrome. Patient was seen by Leslie Arriaga in cardiology office and 24-hour Holter monitor was done. On diltiazem. 24-hour Holter monitor shows atrial fibrillation/flutter with occasional PVC. Toprol-XL 12.5 mg twice daily and Cardizem CD 120 mg daily resumed. On Eliquis 2.5 mg twice daily. Medications spaced out to avoid hypotension. During ED patient did not had bradycardia 3. DARIUSZ on CKD stage IV with hyperkalemia, present on admission: Admitting BUN/creatinine 60/2.57, estimated creatinine clearance 22 mL/min. During previous admission patient's BUN/creatinine was 37/1.86. His baseline creatinine progressively between 2.13 and 2.41. During previous admission, furosemide, Januvia were on hold. Patient was discharged with Claudio catheter on Flomax CAD; s/p CABG x 3 (2012) -Plavix was discontinued during last cardiology office visit due to nosebleed in March 13 Essential hypertension; on lisinopril and metoprolol BID - Resume home regimen plus give as needed IV hydralazine for systolic blood pressure greater than 160 mmHg. Hyperlipidemia; on pravastatin - Continue statin and check lipid profile. Acute on chronic hypoxic and hypercarbic respiratory failure due to mild COPD exacerbation and HF exacerbation: Patient feeling chest tightness, wheezing. Patient is being managed on scheduled bronchodilator, IV Solu-Medrol, Mucinex, incentive spirometry and Pep. ABG 7.3 //34 on 6 L of oxygen. Bicarb in BMP 26.7. Therefore there is mismatch/inconsistent with bicarb in BMP and ABG. His baseline bicarb and BMP stands about 26-27. Previous ABG in July 2023 showed PCO2 42.6. Triple PCR for SARS-CoV-2, flu and RSV are negative. 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 On sitagliptin. Accu-Chek before meals and at bedtime with Humalog sliding scale coverage and hypoglycemia protocol. 03/09 glucoses controlled 118. A1c 6.3%. Peripheral artery disease with history of left lower extremity ulcer status post aortofemoral bypass graft in 2009 and chronic venous insufficiency. Overweight; with BMI of 26 this admission - Weight loss will be recommended. Chronic anemia - Stable with hemoglobin of 10.1 g/dL and MCV of 89.3 fL present on admission. Hemoglobin 9.3. Does not show significant drop or meet criteria for acute anemia Chronic degenerative arthritis, give acetaminophen prn pain or fever DVT prophylaxis - Patient already on apixaban for #2 which will be continued. Echocardiogram 03/04/25 20:08 Interpretation Summary Moderate concentric left ventricular hypertrophy. The LV ejection fraction is 55 %. Stage 1 diastolic dysfunction. The left atrium is severely enlarged. Severe mitral valve annular calcification. Moderate posteriorly directed mitral valve regurgitation. Moderate tricuspid valve regurgitation. Estimated pulmonary artery systolic pressure 42 mmHg. Mild (1+) pulmonic valve insufficiency. The study was technically difficult. Microbiology Past 72 Hours 04/06/25 06:47 Mucosa - Nasopharyngeal Respiratory Panel (PCR) - Final 04/05/25 17:05 Mucosa - Nose SARS-CoV-2, Influenza & RSV (PCR) - Final Laboratory Results 04/05/25 17:10: WBC 8.7, RBC 3.27 L, Hgb 8.9 L, Hct 29.0 L, MCV 88.7, MCH 27.2, MCHC 30.7 L, RDW Std Deviation 55.5 H, RDW Coeff of Reggie 17.1 H, Plt Count 226, MPV 11.1, Immature Gran % (Auto) 0.700, Neut % (Auto) 79.7 H, Lymph % (Auto) 7.3 L, [place] % (Auto) 10.7 H, Eos % (Auto) 1.0, Baso % (Auto) 0.6, Absolute Neuts (auto) 7.0, Absolute Lymphs (auto) 0.64 L, Nucleated RBC % 0.2, Sodium 134, P otassium 5.8 H, Chloride 97 L, Carbon Dioxide 26.7, Anion Gap 11, BUN 60 H, C reatinine 2.57 H, Estim Creat Clear Calc 22.62 L, Est GFR (MDRD) Non-Af 25 L, B UN/Creatinine Ratio 23.2 H, Glucose 164 H, Calcium 8.8, Troponin T High Sens 64 H* D, NT pro BNP II 4003 H 04/05/25 17:50: POC Glucose 147 H 04/05/25 19:10: Magnesium 2.5 H, Troponin T Hi Sens 2 Hr 62 H*, TSH 3.830 04/05/25 20:59: Troponin T Hi Sens 4Hr 60 H* 04/05/25 21:11: POC Glucose 76 04/05/25 21:25: Specimen Type ART, Sample Site R Radial, pH 7.36, Bicarbonate Actual 32.4 H, Total CO2 34, Base Excess 7 H, O2 Saturation 93 L, O2 % 6.0, ABG pCO2 57.1 H, ABG pO2 71 L, Jg Test Positive, O2 Delivery Device Cannula, Vent Mode Not entered 04/05/25 21:49: Urine Color Yellow, Urine Clarity Clear, Urine pH 5.0, Ur Specific [place] 1.015, Urine Protein 100 H, Urine Glucose (UA) Normal, Urine Ketones Negative, Urine Occult Blood 10 H, Urine Nitrite Negative, Urine Bilirubin Negative, Urine Urobilinogen Normal, Ur Leukocyte Esterase 500 H, Urine RBC 0-5 SEEN, Urine WBC 5-10 SEEN, Ur Squamous Epith Cells 0-5 SEEN, Urine Bacteria 2+, Urine Mucus 0 SEEN 04/06/25 02:22: POC Glucose 112 H 04/06/25 04:58: WBC 7.8, RBC 2.94 L, Hgb 7.9 L, Hct 26.3 L, MCV 89.5, MCH 26.9 L , MCHC 30.0 L, RDW Std Deviation 54.7 H, RDW Coeff of Reggie 16.8 H, Plt Count 178, MPV 10.4, Immature Gran % (Auto) 0.600, Neut % (Auto) 81.9 H, Lymph % (Auto) 6.4 L, [place] % (Auto) 10.1 H, Eos % (Auto) 0.5, Baso % (Auto) 0.5, Absolute Neuts (auto) 6.4, Absolute Lymphs (auto) 0.50 L, Nucleated RBC % 0, Sodium 138, Potassium 4.7, Chloride 100, Carbon Dioxide 27.9, Anion Gap 10, BUN 58 H, C reatinine 2.52 H, Estim Creat Clear Calc 22.79 L, Est GFR (MDRD) Non-Af 25 L, B UN/Creatinine Ratio 22.8 H, Glucose 102 H, Calcium 8.8, Phosphorus 5.4 H, Total Bilirubin 0.40, AST 19, ALT 13, Alkaline Phosphatase 70, NT pro BNP II 4038 H, Total Protein 6.8, Albumin 3.3 L, Globulin 3.5, Albumin/Globulin Ratio 0.9 04/06/25 06:22: POC Glucose 116 H 04/06/25 11:56: POC Glucose 140 H Charges/Coding Visit Charges Inpatient E&M: 75453 Subs Hosp L3
[2025-04-06] MEDS: Metoprolol(XL)Succ 25 MG Tablet 12.5 MG PO ×2 (10:36→20:47)
[2025-04-06] MEDS: APIXABAN 2.5 MG TABLET (WCH) PO ×2 (10:36→20:47)
--- NOTE | 2025-04-06 11:53 | PCM.CONS.R ---
Assessment & Plan Assessment/Plan (1) DARIUSZ (acute kidney injury): (2) CKD (chronic kidney disease), stage IV: (3) Respiratory insufficiency: PLAN: Plan This is a pleasant 80-year-old male with past medical history significant for HFpEF, diabetes mellitus type 2, chronic kidney disease stage III/IV, coronary artery disease status post coronary artery bypass graft x 3 in 2012, chronic atrial fibrillation, history of COPD, history of NSCLC right lung followed by oncology currently on observation, chronic respiratory failure on home O2 3 L nasal cannula continuous who presented to the emergency room with complaints of shortness of breath, hypotension, admitted for respiratory insufficiency secondary to acute exacerbation chronic diastolic heart failure, COPD, and possible pneumonia. Nephrology consulted in view of elevated creatinine. Patient has known history of chronic kidney disease secondary diabetic nephropathy and residual damage of kidney from prior ATN after CABG at [place] March 2013 (patient required hemodialysis for short period of time). Patient had been seen in our office, last seen in April 2021, at that time baseline creatinine ranging around 1.5 to 1.9 mg/dL. There does seem to be some progression of CKD since last seen in April 2021. Possible new baseline creatinine ranging around 1.9 to 2.2 mg/dL however patient does have some fluctuations in serum creatinine. Today his creatinine is 2.52. Potassium was 5.8 yesterday (he received hyperkalemia lowering medications in ER), K+ now 4.7. Bicarb normal. Patient has been started on Lasix 40 mg IV twice daily. Recommend continue with diuretics and will monitor kidney function closely. At this time there is no acute indication for renal placement therapy. Patient has known history of congestive heart failure, last echo February 2025: EF 55%, stage I diastolic dysfunction, moderate concentric left ventricular hypertrophy. Continue with diuresis. Patient states was not taking diuretic at home. Patient also on IV steroids and breathing treatments. We will obtain renal US. UA + bacteria and protein. Will check UPCR. Further orders forthcoming as hospitalization evolves, thank you for allowing us to participate in the care of Mr. Hillman. Assessment and plan reviewed with Dr. Saravia. HPI Consult Data Date of Consult: 04/06/25 HPI Narrative HPI Narrative: PEDRO HILLMAN, is a 80 M with past medical history significant for diabetes mellitus type 2, chronic kidney disease stage III/IV, diabetic nephropathy, coronary artery disease status post coronary artery bypass graft x 3 in 2013, chronic atrial fibrillation, history of COPD, history of NSCLC right lung followed by oncology currently on observation, chronic respiratory failure on home O2 3 L nasal cannula continuous who presented to the emergency room with complaints of cough and shortness of breath. Patient reports shortness of breath had worsened over the weekend therefore he summoned EMS. In emergency room blood pressure 100/85, oxygen saturation 88% on O2 4 L, BNP 4000, chest x-ray CHF with moderate right pleural effusion, small left pleural effusion, pulmonary edema with underlying infectious/inflammatory process. Patient was admitted for further evaluation and treatment. Nephrology consulted in view of elevated creatinine. Patient reports he had followed with nephrology in past but it has not seen nephrology for a few years. He he was last seen in our [place] office in April 2021. CKD is secondary to diabetic nephropathy and residual damage of kidney from prior ATN after CABG at [place] March 2013 (patient required hemodialysis for short period of time). Baseline creatinine April 2021 was around 1.5 to 1.9 mg/dL. Yesterday in the emergency room creatinine 2.57, today his creatinine is 2.52 mg/dL. Patient denies any recent nausea, vomiting or diarrhea. He does state since feeling unwell appetite has been poor. No NSAIDs. Denies any hematuria, dysuria, frequency, nocturia. [facility] Medical History Peripheral arterial disease Other persistent atrial fibrillation New onset atrial flutter COVID Wears hearing aid in both ears Former smoker Coronary artery disease Peripheral vascular occlusive disease BPH (benign prostatic hyperplasia) Chronic kidney disease, stage 3 Atherosclerosis of coronary artery of [place] heart without angina pectoris Hyperlipidemia Lower extremity edema Venous insufficiency Malnutrition Delayed wound healing Osteomyelitis of ankle, left, acute Ulcer of left lower extremity with fat layer exposed Type 2 diabetes mellitus with diabetic polyneuropathy Anemia GERD (gastroesophageal reflux disease) Hypertension Home Medications ?Medication ?Instructions ?Recorded ?Last Taken ?Type insulin glargine 100 unit/mL 30 unit SQ QHS diabetes 11/19/19 03/03/25 History subcutaneous solution multivitamin (Daily Multi-Vitamin 1 tab PO DAILY supplement 06/28/20 03/03/25 History tablet) sitagliptin phosphate 50 mg tablet 50 mg PO DAILY diabetes 11/02/21 03/03/25 History (Januvia) pravastatin 20 mg tablet 20 mg PO DAILY hyperlipidemia 01/17/22 03/03/25 History cranberry 500 mg capsule 500 mg PO DAILY supplement 07/25/23 03/03/25 History docusate sodium 100 mg capsule 100 mg PO DAILY PRN stool softn 07/25/23 Unknown History (Colace) albuterol sulfate 90 mcg/actuation 2 puff inhalation Q4H PRN 10/23/24 Unknown Rx aerosol inhaler shortness of breath or wheezing #3 device umeclidinium 62.5 mcg-vilanterol 1 inh inhalation QDAY copd #60 ea 10/23/24 03/03/25 Rx 25 mcg/actuation powdr for inhalation (Anoro Ellipta) apixaban 5 mg tablet (Eliquis) 2.5 mg (1/2 x 5 mg) PO BID 30 days 03/09/25 Unknown Rx #30 tabs diltiazem HCl 120 mg 120 mg PO DAILY 30 days #30 caps 03/09/25 Unknown Rx capsule,extended release 24 hr guaifenesin 1,200 mg tablet, 1,200 mg PO Q12H 7 days #14 tabs 03/09/25 Unknown Rx extended release 12 hr tamsulosin 0.4 mg capsule 0.4 mg PO DAILY@1730 30 days #30 03/09/25 Unknown Rx caps metoprolol succinate 25 mg 12.5 mg (1/2 x 25 mg) PO BID #90 04/03/25 Unknown Rx tablet,extended release 24 hr tabs clopidogrel 75 mg tablet 75 mg PO DAILY 04/05/25 Unknown History insulin glargine 100 unit/mL (3 unit subcut 04/05/25 Unknown History mL) subcutaneous pen (Lantus Solostar U-100 Insulin) Allergy/AdvReac Type Severity Reaction Status Date / Time ibuprofen Allergy Severe Facial Verified 04/05/25 16:44 swelling (angioedema) Family History Brother Diabetes Father , Age 72 stomach ulcers No problems noted. Mother , Age 71 pancreatitis No problems noted. Sister , hepatitis C No problems noted. Surgical History H/O aorto-femoral bypass (~2009) History of transurethral resection of prostate Presence of aortocoronary bypass graft (~03/2013) Social History Smoking Status: Former smoker Tobacco: How many years used: 30 how long ago did patient quit smokin years ROS ROS Narrative As in HPI Physical Exam Narrative Alert and oriented x 3, no apparent distress S1, S2, rhythm irregular, rate controlled Diminished breath sounds throughout with scattered rales. On O2 nasal cannula Abdomen soft, nontender, nondistended No pitting edema Lab / Micro Data 04/06/25 04:58 04/06/25 04:58 Labs: Laboratory Results - last 24 hr 04/05/25 17:10: WBC 8.7, RBC 3.27 L, Hgb 8.9 L, Hct 29.0 L, MCV 88.7, MCH 27.2, MCHC 30.7 L, RDW Std Deviation 55.5 H, RDW Coeff of Reggie 17.1 H, Plt Count 226, MPV 11.1, Immature Gran % (Auto) 0.700, Neut % (Auto) 79.7 H, Lymph % (Auto) 7.3 L, [place] % (Auto) 10.7 H, Eos % (Auto) 1.0, Baso % (Auto) 0.6, Absolute Neuts (auto) 7.0, Absolute Lymphs (auto) 0.64 L, Nucleated RBC % 0.2, Sodium 134, Potassium 5.8 H, Chloride 97 L, Carbon Dioxide 26.7, Anion Gap 11, BUN 60 H, Creatinine 2.57 H, Estim Creat Clear Calc 22.62 L, Est GFR (MDRD) Non-Af 25 L, BUN/Creatinine Ratio 23.2 H, Glucose 164 H, Calcium 8.8, Troponin T High Sens 64 H* D, NT pro BNP II 4003 H 04/05/25 17:50: POC Glucose 147 H 04/05/25 19:10: Magnesium 2.5 H, Troponin T Hi Sens 2 Hr 62 H*, TSH 3.830 04/05/25 20:59: Troponin T Hi Sens 4Hr 60 H* 04/05/25 21:11: POC Glucose 76 04/05/25 21:49: Urine Color Yellow, Urine Clarity Clear, Urine pH 5.0, Ur Specific [place] 1.015, Urine Protein 100 H, Urine Glucose (UA) Normal, Urine Ketones Negative, Urine Occult Blood 10 H, Urine Nitrite Negative, Urine Bilirubin Negative, Urine Urobilinogen Normal, Ur Leukocyte Esterase 500 H, Urine RBC 0-5 SEEN, Urine WBC 5-10 SEEN, Ur Squamous Epith Cells 0-5 SEEN, Urine Bacteria 2+, Urine Mucus 0 SEEN 04/06/25 02:22: POC Glucose 112 H 04/06/25 04:58: WBC 7.8, RBC 2.94 L, Hgb 7.9 L, Hct 26.3 L, MCV 89.5, MCH 26.9 L, MCHC 30.0 L, RDW Std Deviation 54.7 H, RDW Coeff of Reggie 16.8 H, Plt Count 178, MPV 10.4, Immature Gran % (Auto) 0.600, Neut % (Auto) 81.9 H, Lymph % (Auto) 6.4 L, [place] % (Auto) 10.1 H, Eos % (Auto) 0.5, Baso % (Auto) 0.5, Absolute Neuts (auto) 6.4, Absolute Lymphs (auto) 0.50 L, Nucleated RBC % 0, Sodium 138, Potassium 4.7, Chloride 100, Carbon Dioxide 27.9, Anion Gap 10, BUN 58 H, Creatinine 2.52 H, Estim Creat Clear Calc 22.79 L, Est GFR (MDRD) Non-Af 25 L, BUN/Creatinine Ratio 22.8 H, Glucose 102 H, Calcium 8.8, Phosphorus 5.4 H, Total Bilirubin 0.40, AST 19, ALT 13, Alkaline Phosphatase 70, NT pro BNP II 4038 H, Total Protein 6.8, Albumin 3.3 L, Globulin 3.5, Albumin/Globulin Ratio 0.9 04/06/25 06:22: POC Glucose 116 H Micro: Microbiology 04/06/25 06:47 Mucosa - Nasopharyngeal Respiratory Panel (PCR) - Final 04/05/25 17:05 Mucosa - Nose SARS-CoV-2, Influenza & RSV (PCR) - Final ABG Data ABG results: ABG 04/05/25 21:25 Specimen Type ART Sample Site R Radial pH 7.36 Bicarbonate Actual 32.4 H Total CO2 34 Base Excess 7 H O2 Saturation 93 L O2 % 6.0 ABG pCO2 57.1 H ABG pO2 71 L Jg Test Positive O2 Delivery Device Cannula Vent Mode Not entered Imaging Radiology Impression Chest X-Ray 04/05/25 17:25 IMPRESSION: CHF with moderate right and small left pleural effusions/atelectasis, and pulmonary edema. Underlying infectious/inflammatory process cannot be reliably excluded. Reading Location: [id number] Chest X-Ray 04/06/25 04:13 IMPRESSION: Unchanged bilateral pleural effusions. Unchanged passive atelectatic airspace disease of the lower lobes. Unremarkable median sternotomy wires. Minimal decrease in pulmonary congestion/infiltrates. Enlarged cardiac silhouette. Reading Location[facility]
--- NOTE | 2025-04-06 12:15 | CASEMGMT ---
KHURRAM DAO Chart review: Patient was admitted 03/04-03/09/25 for acute exacerbation of CHF, CAD, and persistant Afib. See assessment from 03/04/25. Patient was discharged to home with increase in home oxygen, [facility] HHC, family support, and follow-up plans in place. Patient returned to [facility] ED on 04/05/25 for hypotension, bradycardia, and hypoxia. Patient was admitted for Acute exacerbation of chronic diastolic CHF and elevated troponin. [facility]URRAM DA[facility] Patient states he was taking medications as prescribed and attended follow-up appts. Patient states was wearing his oxygen as prescribed. Patient states HHC had been following. Patient states he wishes to return home with resumption of HHC and family support. Patient denies additional needs at discharge. Will monitor for increase in home oxygen. Patient had no further question or concerns. CM will continue to follow this patient and plan for a safe discharge.
--- NOTE | 2025-04-06 12:19 | US_ITS ---
PROCEDURE: KIDNEY AND BLADDER 04/06/2025 REASON FOR EXAM: DARIUSZ ON CKD TECHNIQUE: KIDNEY AND BLADDER COMPARISON: None FINDINGS: Kidneys: Normal renal sizes, parenchymal thicknesses, and echotextures. [place]au: No hydronephrosis. Cysts or Masses: No cysts or large solid renal masses. Other: RIGHT Kidney Size: 9.8 cm x 4.8 cm x 4.8 cm Volume: 116.86 mL Cortical Thickness (if discernible): 13 mm (>6mm is normal) LEFT Kidney Size: 11 cm x 5.7 cm x 5.5 cm Volume: 178 0.23 mL Cortical Thickness (if discernible): 19 mm (>6mm is normal) US/Kidney and Bladder IMPRESSION: NORMAL RENAL ULTRASOUND. Reading Location: [id number]
[2025-04-06] MEDS: 0.9% Saline Lock 10 ML Syringe IV ×2 (17:59→20:45)
[2025-04-06] MEDS: Insulin Glargine-YFGN 100 UNIT/ML Pen 15 UNIT SC (20:46)
[2025-04-06 21:56] LABS: Creatinine, Urine (random) 32.10 mg/dL (39.00-259.00); Protein, Urine (Random) 53.3 mg/dL (0.0-12.0); Protein:Creat Ratio 1660 mg/g CRE (0-200)
[2025-04-07] VITALS (15 sets, daily range): BP systolic 118–155; BP diastolic 50–90; PULSE 104–110; RESP 16–22; TEMP 36–36.7; O2SAT 79–100; BMI 25.7
[2025-04-07] MEDS: 0.9% Saline Lock 10 ML Syringe IV ×3 (05:21→21:09)
[2025-04-07 05:37] LABS: Hematocrit 25.6 % (40-54); Hemoglobin 8.0 g/dL (13.0-16.5); Immature Granulocytes Count 0.090 X10^3/uL (0.0-0.0); Mean Corp Hgb Conc 31.3 g/dL (32-36); Mean Corpuscular Volume 86.5 fL (80-94); Mean Platelet Vol. 10.4 fl (6.2-12.0); NRBC Flagged by Analyzer 0 % (0-5); POSITIVE DIFFERENTIAL YES; Platelet Count 189 K/mm3 (150-450); RBC Distribution Width CV 17.1 % (11.6-14.6); RBC Distribution Width SD 53.1 fl (35.1-43.9); Red Blood Count 2.96 M/mm3 (4.6-6.2); White Blood Count 6.4 K/mm3 (4.4-11.0)
[2025-04-07 06:18] LABS: Anion Gap 11 (5-15); BUN 58 mg/dL (4-19); BUN/Creat Ratio 26.3 RATIO (10-20); Calcium,Total 8.8 mg/dL (7.6-11.0); Carbon Dioxide 29.8 mmol/L (21.0-32.0); Chloride 96 mmol/L (98-108); Estimated Creatinine Clearance 24.06 ml/min (50-250); Glucose 171 mg/dL (70-99); Potassium 4.6 mmol/L (3.3-5.1)
[2025-04-07] MEDS: APIXABAN 2.5 MG TABLET (WCH) PO ×2 (09:09→21:09)
[2025-04-07] MEDS: Metoprolol(XL)Succ 25 MG Tablet 12.5 MG PO ×2 (09:10→21:11)
--- NOTE | 2025-04-07 10:33 | WOUNDNOTE ---
wound photo: right thigh
--- NOTE | 2025-04-07 10:46 | PN.RENAL_ITS ---
Subjective Subjective Sitting in chair. No overnight events. States feeling better today. States breathing is better today. Requiring less oxygen. Objective Data Objective Data Vital Signs: Vital Signs Temp Pulse Resp BP Pulse Ox O2 Del Method O2 Flow Rate 97.4 F L 105 H 16 127/64 H 100 Nasal Cannula 3 04/07/25 09:00 04/07/25 10:39 04/07/25 10:39 04/07/25 09:00 04/07/25 09:00 04/07/25 09:36 04/07/25 09:36 FiO2 35 04/07/25 00:00 Oxygen Flow Rate (L/min) 3 Oxygen Delivery Method Nasal Cannula Weight: 72.2 kg Body Mass Index (BMI) 25.7 Intake & Output: Intake and Output for Last 24 Hours 04/05/25 04/06/25 04/07/25 23:59 23:59 23:59 Intake Total 300 / 300 1680 / 1680 Output Total 2500 / 2500 300 / 300 Balance 300 / 300 -820 / -820 -300 / -300 Lab / Micro Data 04/07/25 05:25 04/07/25 05:25 Labs: Laboratory Results - last 24 hr 04/06/25 11:56: POC Glucose 140 H 04/06/25 16:26: POC Glucose 168 H 04/06/25 20:39: POC Glucose 378 H 04/06/25 21:00: U Random Total Protein 53.3 H, Urine Creatinine 32.10 L, P rotein/Creatinin Ratio 1660 H 04/07/25 05:25: WBC 6.4, RBC 2.96 L, Hgb 8.0 L, Hct 25.6 L, MCV 86.5, MCH 27.0, MCHC 31.3 L, RDW Std Deviation 53.1 H, RDW Coeff of Reggie 17.1 H, Plt Count 189, MPV 10.4, Immature Gran % (Auto) 1.400 H, Neut % (Auto) 92.8 H, Lymph % (Auto) 3.1 L, [place] % (Auto) 2.5, Eos % (Auto) 0.0, Baso % (Auto) 0.2, Absolute Neuts (auto) 5.9, Absolute Lymphs (auto) 0.20 L, Nucleated RBC % 0, Sodium 137, Potassium 4.6, Chloride 96 L, Carbon Dioxide 29.8, Anion Gap 11, BUN 58 H, C reatinine 2.21 H, Estim Creat Clear Calc 24.06 L, Est GFR (MDRD) Non-Af 29 L, B UN/Creatinine Ratio 26.3 H, Glucose 171 H, Calcium 8.8, Phosphorus 4.6 H 04/07/25 06:16: POC Glucose 162 H Micro: Microbiology 04/06/25 06:47 Mucosa - Nasopharyngeal Respiratory Panel (PCR) - Final 04/05/25 17:05 Mucosa - Nose SARS-CoV-2, Influenza & RSV (PCR) - Final Radiography Diagnostic Testing: Radiology Impression Renal Ultrasound 04/06/25 12:19 IMPRESSION: NORMAL RENAL ULTRASOUND. Reading Location: [id number] Physical Exam Narrative Alert and oriented x 3, no apparent distress S1, S2, rhythm irregular, rate controlled Diminished breath sounds. On O2 nasal cannula Abdomen soft, nontender, nondistended No pitting edema Assessment & Plan Assessment/Plan (1) DARIUSZ (acute kidney injury): (2) CKD (chronic kidney disease), stage IV: (3) Respiratory insufficiency: PLAN: Plan This is a pleasant 80-year-old male with past medical history significant for HFpEF, diabetes mellitus type 2, chronic kidney disease stage III/IV, coronary artery disease status post coronary artery bypass graft x 3 in 2012, chronic atrial fibrillation, history of COPD, history of NSCLC right lung followed by oncology currently on observation, chronic respiratory failure on home O2 3 L nasal cannula continuous who presented to the emergency room with complaints of shortness of breath, hypotension, admitted for respiratory insufficiency secondary to acute exacerbation chronic diastolic heart failure, COPD, and possible pneumonia. Nephrology consulted in view of elevated creatinine. -DARIUSZ superimposed on CKD stage IIIb/IV. Patient has history of chronic kidney disease secondary diabetic nephropathy and residual damage of kidney from prior ATN after CABG at [facility] March 2013 (patient required hemodialysis for short period of time). Patient had been seen in our office, last seen in April 2021, at that time baseline creatinine ranging around 1.5 to 1.9 mg/dL. Probable progression of CKD since last seen in April 2021. Possible new baseline creatinine ranging around 1.9 to 2.2 mg/dL however patient does have some fluctuations in serum creatinine. SCr 2.57 on admission, today SCr 2.21. On Lasix 40 mg IV twice daily. Breathing is better. Urine output around 2 L yesterday. No acute indication for [employer]. Renal ultrasound, normal ultrasound, no hydronephrosis. Urine protein creatinine ratio 1.6 g. - Acute on chronic hypoxic respiratory failure secondary to mild COPD exacerbation and heart failure exacerbation. Patient has known history of congestive heart failure, last echo February 2025: EF 55%, stage I diastolic dysfunction, moderate concentric left ventricular hypertrophy. Diuresing well with Lasix. On IV steroids and breathing treatments. Breathing has improved. We will arrange for hospital follow-up after hospital discharge in [place] office. Assessment and plan reviewed with Dr. Saravia.
--- NOTE | 2025-04-07 11:13 | PCM.PN.HOSP ---
Reason for Visit Chief Complaint: SOB, Cough and Hypotension. Subjective Subjective Patient is an 80-year-old gentleman with multiple comorbidities including chronic congestive heart failure with preserved ejection fraction, chronic kidney disease stage IV who presented with progressive shortness of breath. Imaging studies demonstrated features consistent with pulmonary vascular congestion and assessment of acute congestive heart failure admitted admitted to monitored bed for further management Objective Data Objective Data Vital Signs: Vital Signs Temp Pulse Resp BP Pulse Ox O2 Del Method O2 Flow Rate 97.4 F L 105 H 16 127/64 H 100 Nasal Cannula 3 04/07/25 09:00 04/07/25 10:39 04/07/25 10:39 04/07/25 09:00 04/07/25 09:00 04/07/25 09:36 04/07/25 09:36 FiO2 35 04/07/25 00:00 Oxygen Flow Rate (L/min) 3 Oxygen Delivery Method Nasal Cannula Weight: 72.2 kg Body Mass Index (BMI) 25.7 Intake & Output: Intake and Output for Last 24 Hours 04/05/25 04/06/25 04/07/25 23:59 23:59 23:59 Intake Total 300 / 300 1680 / 1680 Output Total 2500 / 2500 300 / 300 Balance 300 / 300 -820 / -820 -300 / -300 Lab / Micro Data 04/07/25 05:25 04/07/25 05:25 Labs: Laboratory Results - last 24 hr 04/06/25 11:56: POC Glucose 140 H 04/06/25 16:26: POC Glucose 168 H 04/06/25 20:39: POC Glucose 378 H 04/06/25 21:00: U Random Total Protein 53.3 H, Urine Creatinine 32.10 L, Protein/Creatinin Ratio 1660 H 04/07/25 05:25: WBC 6.4, RBC 2.96 L, Hgb 8.0 L, Hct 25.6 L, MCV 86.5, MCH 27.0, MCHC 31.3 L, RDW Std Deviation 53.1 H, RDW Coeff of Reggie 17.1 H, Plt Count 189, MPV 10.4, Immature Gran % (Auto) 1.400 H, Neut % (Auto) 92.8 H, Lymph % (Auto) 3.1 L, [place] % (Auto) 2.5, Eos % (Auto) 0.0, Baso % (Auto) 0.2, Absolute Neuts (auto) 5.9, Absolute Lymphs (auto) 0.20 L, Nucleated RBC % 0, Sodium 137, Potassium 4.6, Chloride 96 L, Carbon Dioxide 29.8, Anion Gap 11, BUN 58 H, Creatinine 2.21 H, Estim Creat Clear Calc 24.06 L, Est GFR (MDRD) Non-Af 29 L, BUN/Creatinine Ratio 26.3 H, Glucose 171 H, Calcium 8.8, Phosphorus 4.6 H 04/07/25 06:16: POC Glucose 162 H Micro: Microbiology 04/06/25 06:47 Mucosa - Nasopharyngeal Respiratory Panel (PCR) - Final 04/05/25 17:05 Mucosa - Nose SARS-CoV-2, Influenza & RSV (PCR) - Final Radiography Diagnostic Testing: Radiology Impression Renal Ultrasound 04/06/25 12:19 IMPRESSION: NORMAL RENAL ULTRASOUND. Reading Location: [facility] Physical Exam Narrative S GENERAL: cooperative, dyspneic at rest HEENT: Atraumatic; normocephalic EYES; Anicteric, Normal Conjunctiva NECK; supple, normal thyroid, RESPIRATORY: Diminished to auscultation CARDIOVASCULAR: Irregular S1 S2, GI: soft, normoactive bowel sounds, : No Renal angle tenderness; EXTREMITIES: No edema, no clubbing, MUSCULOSKELETAL: no muscle wasting NEURO: Awake; no lateralizing signs. SKIN: No Rash PSYCH; Flat affect Assessment & Plan Assessment/Plan (1) Acute on chronic diastolic congestive heart failure: PLAN: Plan Patient is an 80-year-old gentleman with multiple comorbidities including chronic congestive heart failure with preserved ejection fraction, chronic kidney disease stage IV who presented with progressive shortness of breath. Imaging studies demonstrated features consistent with pulmonary vascular congestion and assessment of acute congestive heart failure admitted admitted to monitored bed for further management 1. Acute on chronic congestive heart failure with preserved ejection fraction ? Echo from 03/05/2025 demonstrated EF of 55% with PASP of 42 mmHg. Patient admitted to monitored bed manage with strict input and output, fluid restriction, daily weights as well as diuretic therapy with furosemide 2. Chronic hypoxic respiratory failure ? Patient is on baseline home oxygen 3 L 3. Hyperkalemia ? Present on admission potassium level was 5.8. Treated per protocol potassium as of 04/07/2025 is 4.6 4. DARIUSZ superimposed chronic kidney disease stage IV ? Patient kidney function at baseline. Patient being followed by nephrology 5. Coronary artery disease ? With previous CABG; patient is on guideline directed medical therapy 6. History of non-small cell lung CA involving the right upper lobe ? Patient was treated with radiation therapy currently followed by [facility] oncology and will start 7. Chronic persistent A-fib ? Rate controlled on systemic anticoagulation with apixaban 8. Hypertension ? Blood pressure controlled, home medications continued with dose adjustment as needed 9. Diabetes mellitus type 2 ? Patient was on long-acting insulin with glargine 30 units at bedtime home discontinued also placed on Accu-Cheks AC and at bedtime with sliding scale coverage 10. BPH with lower urinary obstructive symptoms - Patient treated with tamsulosin 11. Anemia ? Secondary to chronic disorder monitoring H&H and transfuse if patient becomes symptomatic or hemoglobin falls below 7 12. COPD ? Currently not in exacerbation did continue patient bronchodilator as well as inhaled corticosteroid treatment regimen 13. Dyslipidemia ?Patient is on statin therapy, continued at home dose 14. Chronic degenerative arthritis - Tylenol as needed 15. Peripheral artery disease -with history of left lower extremity ulcer status post aortofemoral bypass graft in 2010 and chronic venous insufficiency. 16 . DVT prophylaxis ? Patient is on apixaban Time spent in the patient's overall evaluation,decision-making process, review of diagnostic data, adjustment of management, discussion with other providers, nursing nursing and ancillary staff involved in patient's care documentation, 52 Minutes Charges/Coding Visit Charges Inpatient E&M: 52727 [facility] L3
[2025-04-07] MEDS: Insulin Glargine-YFGN 100 UNIT/ML Pen 15 UNIT SC (21:10)
[2025-04-07] MEDS: MELATONIN 10 MG TABLET PO (23:28)
[2025-04-08] VITALS (16 sets, daily range): BP systolic 99–131; BP diastolic 51–87; PULSE 78–91; RESP 16–20; TEMP 35.7–36.8; O2SAT 94–100; BMI 25.9
[2025-04-08 05:38] LABS: Hematocrit 27.0 % (40-54); Hemoglobin 8.3 g/dL (13.0-16.5); Immature Granulocytes Count 0.040 X10^3/uL (0.0-0.0); Mean Corp Hgb Conc 30.7 g/dL (32-36); Mean Corpuscular Volume 87.4 fL (80-94); Mean Platelet Vol. 10.7 fl (6.2-12.0); NRBC Flagged by Analyzer 0 % (0-5); POSITIVE DIFFERENTIAL YES; Platelet Count 192 K/mm3 (150-450); RBC Distribution Width CV 17.2 % (11.6-14.6); RBC Distribution Width SD 54.2 fl (35.1-43.9); Red Blood Count 3.09 M/mm3 (4.6-6.2); White Blood Count 6.9 K/mm3 (4.4-11.0)
[2025-04-08 06:00] LABS: Anion Gap 11 (5-15); BUN 65 mg/dL (4-19); BUN/Creat Ratio 33.8 RATIO (10-20); Calcium,Total 8.6 mg/dL (7.6-11.0); Carbon Dioxide 32.0 mmol/L (21.0-32.0); Chloride 95 mmol/L (98-108); Estimated Creatinine Clearance 27.84 ml/min (50-250); Glucose 240 mg/dL (70-99); Potassium 4.0 mmol/L (3.3-5.1)
[2025-04-08] MEDS: 0.9% Saline Lock 10 ML Syringe IV ×4 (06:31→22:45)
--- NOTE | 2025-04-08 07:57 | PCM.PN.HOSP ---
Reason for Visit Chief Complaint: SOB, Cough and Hypotension. Subjective Subjective Patient seen plan is for patient to be assessed for home oxygen prior to discharge. Patient's daughter had requested for palliative care consultation the day prior order was placed. Objective Data Objective Data Vital Signs: Vital Signs Temp Pulse Resp BP Pulse Ox O2 Del Method O2 Flow Rate 96.3 F L 84 16 111/51 L 99 Nasal Cannula 2 04/08/25 03:07 04/08/25 03:07 04/08/25 03:07 04/08/25 03:07 04/08/25 03:07 04/08/25 03:47 04/08/25 03:47 FiO2 35 04/07/25 00:00 Oxygen Flow Rate (L/min) 2 Oxygen Delivery Method Nasal Cannula Weight: 73 kg Body Mass Index (BMI) 25.9 Intake & Output: Intake and Output for Last 24 Hours 04/06/25 04/07/25 04/08/25 23:59 23:59 23:59 Intake Total 1680 / 1680 250 / 250 Output Total 2500 / 2500 2200 / 2200 600 / 600 Balance -820 / -820 -1950 / -1950 -600 / -600 Lab / Micro Data 04/08/25 05:13 04/08/25 05:13 Labs: Laboratory Results - last 24 hr 04/07/25 11:21: POC Glucose 303 H 04/07/25 16:11: POC Glucose 272 H 04/07/25 21:06: POC Glucose 249 H 04/08/25 05:13: WBC 6.9, RBC 3.09 L, Hgb 8.3 L, Hct 27.0 L, MCV 87.4, MCH 26.9 L, MCHC 30.7 L, RDW Std Deviation 54.2 H, RDW Coeff of Reggie 17.2 H, Plt Count 192, MPV 10.7, Immature Gran % (Auto) 0.600, Neut % (Auto) 91.4 H, Lymph % (Auto) 3.5 L, [place] % (Auto) 4.5, Eos % (Auto) 0.0, Baso % (Auto) 0.0, Absolute Neuts (auto) 6.3, Absolute Lymphs (auto) 0.24 L, Nucleated RBC % 0, Sodium 138, Potassium 4.0, Chloride 95 L, Carbon Dioxide 32.0, Anion Gap 11, BUN 65 H, Creatinine 1.91 H, Estim Creat Clear Calc 27.84 L, Est GFR (MDRD) Non-Af 35 L, BUN/Creatinine Ratio 33.8 H, Glucose 240 H, Calcium 8.6 04/08/25 06:29: POC Glucose 199 H Micro: Microbiology 04/06/25 06:47 Mucosa - Nasopharyngeal Respiratory Panel (PCR) - Final 04/05/25 17:05 Mucosa - Nose SARS-CoV-2, Influenza & RSV (PCR) - Final Physical Exam Narrative S GENERAL: cooperative, dyspneic at rest HEENT: Atraumatic; normocephalic EYES; Anicteric, Normal Conjunctiva NECK; supple, normal thyroid, RESPIRATORY: Diminished to auscultation CARDIOVASCULAR: Irregular S1 S2, GI: soft, normoactive bowel sounds, : No Renal angle tenderness; EXTREMITIES: No edema, no clubbing, MUSCULOSKELETAL: no muscle wasting NEURO: Awake; no lateralizing signs. SKIN: No Rash PSYCH; Flat affect Assessment & Plan Assessment/Plan (1) Acute on chronic diastolic congestive heart failure: PLAN: Plan Patient is an 80-year-old gentleman with multiple comorbidities including chronic congestive heart failure with preserved ejection fraction, chronic kidney disease stage IV who presented with progressive shortness of breath. Imaging studies demonstrated features consistent with pulmonary vascular congestion and assessment of acute congestive heart failure admitted admitted to monitored bed for further management 1. Acute on chronic congestive heart failure with preserved ejection fraction ? Echo from 03/05/2025 demonstrated EF of 55% with PASP of 42 mmHg. Patient admitted to monitored bed manage with strict input and output, fluid restriction, daily weights as well as diuretic therapy with furosemide ? Patient continues to diurese well plan is for patient to be assessed for discharge 2. 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 Plan is for patient to be assessed for home oxygen prior to discharge. Patient current setting is 3 L with activity and 2 L at baseline. Patient daughter had asked for palliative care consultation the day prior consult was placed 3. Hyperkalemia ? Present on admission potassium level was 5.8. Treated per protocol potassium as of 04/07/2025 is 4.6 4. DARIUSZ superimposed chronic kidney disease stage IV ? Patient kidney function at baseline. Patient being followed by nephrology ? 04/08/2025 patient creatinine down to 1.91 5. Coronary artery disease ? With previous CABG; patient is on guideline directed medical therapy 6. History of non-small cell lung CA involving the right upper lobe ? Patient was treated with radiation therapy currently followed by [facility] oncology and will start 7. Chronic persistent A-fib ? Rate controlled on systemic anticoagulation with apixaban 8. Hypertension ? Blood pressure controlled, home medications continued with dose adjustment as needed 9. Diabetes mellitus type 2 ? Patient was on long-acting insulin with glargine 30 units at bedtime home discontinued also placed on Accu-Cheks AC and at bedtime with sliding scale coverage 10. BPH with lower urinary obstructive symptoms - Patient treated with tamsulosin 11. Anemia ? Secondary to chronic disorder monitoring H&H and transfuse if patient becomes symptomatic or hemoglobin falls below 7 12. COPD ? Currently not in exacerbation did continue patient bronchodilator as well as inhaled corticosteroid treatment regimen 13. Dyslipidemia ?Patient is on statin therapy, continued at home dose 14. Chronic degenerative arthritis - Tylenol as needed 15. Peripheral artery disease -with history of left lower extremity ulcer status post aortofemoral bypass graft in 2010 and chronic venous insufficiency. 16 . DVT prophylaxis ? Patient is on apixaban Time spent in the patient's overall evaluation,decision-making process, review of diagnostic data, adjustment of management, discussion with other providers, nursing nursing and ancillary staff involved in patient's care documentation, 35 Minutes Charges/Coding Visit Charges Inpatient E&M: 13805 Subs Hosp L2
[2025-04-08] MEDS: Metoprolol(XL)Succ 25 MG Tablet 12.5 MG PO (09:50)
[2025-04-08] MEDS: APIXABAN 2.5 MG TABLET (WCH) PO (09:50)
--- NOTE | 2025-04-08 11:14 | DS.PCM_ITS ---
Providers Date of Admission: 04/05/25 Date of Discharge: 04/08/25 Primary Care Physician: Dr. Luis Johnson, DO Consultations 04/05/25 20:36 Consult: Nephrology Routine Consulting Provider: Davon Saravia Reason for Consult: CKD; stage IV with Hyperkalemia and AE CHF. 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 Imaging studies demonstrated features consistent with pulmonary vascular congestion and assessment of acute congestive heart failure admitted admitted to monitored bed for further management 1. Acute on chronic congestive heart failure with preserved ejection fraction ? Echo from 03/05/2025 demonstrated EF of 55% with PASP of 42 mmHg. Patient admitted to monitored bed manage with strict input and output, fluid restriction, daily weights as well as diuretic therapy with furosemide ? Patient continues to diurese well plan is for patient to be assessed for discharge 2. 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 Plan is for patient to be assessed for home oxygen prior to discharge. Patient current setting is 3 L with activity and 2 L at baseline. Patient daughter had asked for palliative care consultation the day prior consult was placed 3. Hyperkalemia ? Present on admission potassium level was 5.8. Treated per protocol potassium as of 04/07/2025 is 4.6 4. DARIUSZ superimposed chronic kidney disease stage IV ? Patient kidney function at baseline. Patient being followed by nephrology ? 04/08/2025 patient creatinine down to 1.91 5. Coronary artery disease ? With previous CABG; patient is on guideline directed medical therapy 6. History of non-small cell lung CA involving the right upper lobe ? Patient was treated with radiation therapy currently followed by [facility] oncology and will start 7. Chronic persistent A-fib ? Rate controlled on systemic anticoagulation with apixaban 8. Hypertension ? Blood pressure controlled, home medications continued with dose adjustment as needed 9. Diabetes mellitus type 2 ? Patient was on long-acting insulin with glargine 30 units at bedtime home discontinued also placed on Accu-Cheks AC and at bedtime with sliding scale coverage 10. BPH with lower urinary obstructive symptoms - Patient treated with tamsulosin 11. Anemia ? Secondary to chronic disorder monitoring H&H and transfuse if patient becomes symptomatic or hemoglobin falls below 7 12. COPD ? Currently not in exacerbation did continue patient bronchodilator as well as inhaled corticosteroid treatment regimen 13. Dyslipidemia ?Patient is on statin therapy, continued at home dose 14. Chronic degenerative arthritis - Tylenol as needed 15. Peripheral artery disease -with history of left lower extremity ulcer status post aortofemoral bypass graft in 2009 and chronic venous insufficiency. 16 . DVT prophylaxis ? Patient is on apixaban Time spent in the patient's overall evaluation,decision-making process, review of diagnostic data, adjustment of management, discussion with other providers, nursing nursing and ancillary staff involved in patient's care documentation, 35 Minutes Medications at Discharge Home Medications insulin glargine 100 unit/mL subcutaneous solution 30 unit SQ QHS diabetes 11/19/19 multivitamin (Daily Multi-Vitamin tablet) 1 tab PO DAILY supplement 06/28/20 sitagliptin phosphate 50 mg tablet (Januvia) 50 mg PO DAILY diabetes 11/02/21 pravastatin 20 mg tablet 20 mg PO DAILY hyperlipidemia 01/17/22 cranberry 500 mg capsule 500 mg PO DAILY supplement 07/25/23 docusate sodium 100 mg capsule (Colace) 100 mg PO DAILY PRN stool softn 07/25/23 albuterol sulfate 90 mcg/actuation aerosol inhaler 2 puff inhalation Q4H PRN shortness of breath or wheezing #3 device 10/23/24 umeclidinium 62.5 mcg-vilanterol 25 mcg/actuation powdr for inhalation (Anoro Ellipta) 1 inh inhalation QDAY copd #60 ea 10/23/24 apixaban 5 mg tablet (Eliquis) 2.5 mg (1/2 x 5 mg) PO BID blood thinner 30 days #30 tabs 03/09/25 guaifenesin 1,200 mg tablet, extended release 12 hr 1,200 mg PO Q12H cough 7 days #14 tabs 03/09/25 tamsulosin 0.4 mg capsule 0.4 mg PO DAILY@1730 prostate 30 days #30 caps 03/09/25 metoprolol succinate 25 mg tablet,extended release 24 hr 12.5 mg (1/2 x 25 mg) PO BID blood thinner #90 tabs 04/03/25 clopidogrel 75 mg tablet 75 mg PO DAILY anti platelet 04/05/25 insulin glargine 100 unit/mL (3 mL) subcutaneous pen (Lantus Solostar U-100 Insulin) unit subcut 04/05/25 cefdinir 300 mg capsule 300 mg PO BID #10 caps 04/08/25 furosemide 40 mg tablet (Lasix) 40 mg PO DAILY #60 tabs 04/08/25 guaifenesin 600 mg tablet, extended release 12 hr (Mucinex) 1,200 mg (2 x 600 mg) PO BID #20 tabs 04/08/25 prednisone 20 mg tablet 20 mg PO BID #10 tabs 04/08/25 Physical Exam Narrative S GENERAL: cooperative, dyspneic at rest HEENT: Atraumatic; normocephalic EYES; Anicteric, Normal Conjunctiva NECK; supple, normal thyroid, RESPIRATORY: Diminished to auscultation CARDIOVASCULAR: Irregular S1 S2, GI: soft, normoactive bowel sounds, : No Renal angle tenderness; EXTREMITIES: No edema, no clubbing, MUSCULOSKELETAL: no muscle wasting NEURO: Awake; no lateralizing signs. SKIN: No Rash PSYCH; Flat affect Weight / BMI Weight Weight: 73 kg Body Mass Index (BMI) 25.9 ABG / Lab / Microbiology Data 04/08/25 05:13 04/08/25 05:13 Laboratory: Laboratory Results - last 24 hr 04/07/25 16:11: POC Glucose 272 H 04/07/25 21:06: POC Glucose 249 H 04/08/25 05:13: WBC 6.9, RBC 3.09 L, Hgb 8.3 L, Hct 27.0 L, MCV 87.4, MCH 26.9 L , MCHC 30.7 L, RDW Std Deviation 54.2 H, RDW Coeff of Reggie 17.2 H, Plt Count 192, MPV 10.7, Immature Gran % (Auto) 0.600, Neut % (Auto) 91.4 H, Lymph % (Auto) 3.5 L, [place] % (Auto) 4.5, Eos % (Auto) 0.0, Baso % (Auto) 0.0, Absolute Neuts (auto) 6.3, Absolute Lymphs (auto) 0.24 L, Nucleated RBC % 0, Sodium 138, Potassium 4.0, Chloride 95 L, Carbon Dioxide 32.0, Anion Gap 11, BUN 65 H, Creatinine 1.91 H, Estim Creat Clear Calc 27.84 L, Est GFR (MDRD) Non-Af 35 L, BUN/Creatinine Ratio 33.8 H, Glucose 240 H, Calcium 8.6 04/08/25 06:29: POC Glucose 199 H Microbiology: Microbiology 04/06/25 06:47 Mucosa - Nasopharyngeal Respiratory Panel (PCR) - Final 04/05/25 17:05 Mucosa - Nose SARS-CoV-2, Influenza & RSV (PCR) - Final D/C Instructions Discharge Activity: Return to Normal Activity Call your doctor if you observe: Fever of 101 or Higher, Shortness of breath, Fainting spells and Chest pain DC O2, CPAP, BIPAP Needs Home O2 Discharge instructions: Yes Type of respiratory needs?: Oxygen Oxygen frequency: At rest (2) and With Ambulation Oxygen liters per minute during Ambulation: 3 DC home with Oxygen: Yes Home O2 MD Review: I have reviewed the oxygen testing, and the patient qualifies for home oxygen equipment and portability. The patient is mobile in the home and the community. Meaningful Use Info Meaningful Use Meaningful Use Diagnoses (Choose all that apply): CHF CHF MAUREEN/ARB ordered at discharge?: No Reason MAUREEN/ARB not ordered?: Not indicated Documented LVEF (%): 55 Discharge Plan Admission Admit Date/Time: 04/05/25 19:55 Attending Provider: Nicola Roman Primary Care Provider: Luis Johnson Consulting Providers: Davon Saravia; Nicola Lindsey; Deric Lantigua Discharge Orders/Prescriptions Prescriptions: New prednisone 20 mg tablet 20 mg PO BID Qty: 10 0RF cefdinir 300 mg capsule 300 mg PO BID Qty: 10 0RF guaifenesin [Mucinex] 600 mg tablet extended release 12hr 1,200 mg PO BID Qty: 20 0RF furosemide [Lasix] 40 mg tablet 40 mg PO DAILY Qty: 60 0RF Continued multivitamin [Daily Multi-Vitamin] Tablet 1 tab PO DAILY pravastatin 20 mg tablet 20 mg PO DAILY docusate sodium [Colace] 100 mg capsule 100 mg PO DAILY PRN (Reason: stool softn) cranberry 500 mg capsule 500 mg PO DAILY Rx Instructions: administer with meals albuterol sulfate 90 mcg/actuation HFA aerosol inhaler 2 puff inhalation Q4H PRN (Reason: shortness of breath or wheezing) Qty: 3 3RF Rx Instructions: administer with spacer umeclidinium-vilanterol [Anoro Ellipta] 62.5-25 mcg/actuation blister with device 1 inh inhalation QDAY Qty: 60 3RF insulin glargine 100 UNIT/ML solution 30 unit SQ QHS Januvia 50 mg Tablet 50 mg PO DAILY Eliquis 5 mg Tablet 2.5 mg PO BID 30 Days Qty: 30 3RF guaifenesin 1,200 mg tablet extended release 12hr 1,200 mg PO Q12H 7 Days Qty: 14 6RF tamsulosin 0.4 mg Capsule 0.4 mg PO DAILY@1730 30 Days Qty: 30 2RF clopidogrel 75 mg tablet 75 mg PO DAILY insulin glargine [Lantus Solostar U-100 Insulin] 100 unit/mL (3 mL) insulin pen subcut metoprolol succinate 25 mg tablet extended release 24 hr 12.5 mg PO BID Qty: 90 3RF Discontinued diltiazem HCl 120 mg Capsule,Extended Release 24hr 120 mg PO DAILY 30 Days Qty: 30 2RF Referrals / Follow Up: Luis Johnson DO [Primary Care Provider] - Within 1 Week Disposition Disposition (needs filled in before D/C Order can be placed): Home, Self Care Charges/Coding Visit Charges Inpatient E&M: 90818 Disch Hosp >30min
--- NOTE | 2025-04-08 13:06 | CASEMGMT ---
KHURRAM DAO received order for palliative consult. KHURRAM DAO completed screening tool and sent referral to [facility] via email.
--- NOTE | 2025-04-08 13:58 | CASEMGMT ---
Addendum entered by Lisa Jovel 04/08/25 14:50: KHURRAM DAO updated by nursing that discharge has been cancelled. RN CM called [facility] and updated regarding the cancelled discharge. RN CM called and updated [facility] of cancelled discharge. Original Note: Patient has order for discharge. RN CM called [facility] and updated regarding discharge, resumption of care planned for tomorrow. RN CM in to discuss discharge with patient, RN CM updated regarding [facility] resumption of care planned for tomorrow. RN CM encouraged patient to discuss with family about assisted living, patient states they have discussed it a little and is considering it. Patient had no further questions. RN CM called [facility] to update regarding discharge, resumption of [facility], palliative consult, and conversation regarding assisted living. Neelam voiced appreciation and had no further questions. Neelam states they will have oxygen tank from home for at discharge. RN SYLWIA updated discharge plan.
--- NOTE | 2025-04-08 19:06 | CON.PCM.CA_ITS ---
Assessment & Plan Assessment/Plan (1) Chronic atrial fibrillation: PLAN: He does have atrial fibrillation which appears to be persistent. He has tachybradycardia syndrome with difficulty in controlling his heart rate. He has been on beta-josselyn and calcium channel josselyn. At this point with a high- grade pauses it may be prudent to pursue a permanent pacemaker implantation. His Eliquis needs to be held. He is on a small dose. I have discussed this with him and his family they understand and agree to proceed. (2) Coronary artery disease: QUALIFIERS: Coronary Disease-Associated Artery/Lesion type: [place] artery [place] vs. transplanted heart: [place] heart Associated angina: without angina Qualified Code(s): I25.10 - Atherosclerotic heart disease of [place] coronary artery without angina pectoris PLAN: He does have known coronary artery disease but appears to be stable at this particular time with no angina the plan to be to continue him on the current medical therapy. (3) Heart block AV complete: PLAN: He did have a significant heart block with some residual medication on board and underlying atrial fibrillation. At this time it may be prudent to pursue permanent pacemaker implantation. A single or dual chamber may suffice. I do not think there are plans to cardiovert him at any point soon. * Will attempt to arrange this April 09 or * * Thank you for allowing me to participate in the care of your patient. Please don't hesitate to call if any issues arise. HPI Consult Data Date of Consult: 04/08/25 HPI Narrative HPI Narrative: PEDRO HILLMAN, is a 80 M who presents to the hospital with shortness of breath and was noted to have an elevated natruretic peptide level. He has a history of hypertension hyperlipidemia diabetes mellitus peripheral vascular disease status post aortobifem bypass in 2009. He did have a history of coronary artery disease status post coronary bypass surgery with a left internal mammary artery to left anterior descending artery saphenous vein graft to the diagonal vessel and saphenous vein graft to the posterior descending artery. This was in 2012. His postop course was complicated by mediastinal hematoma and required reexploration and placement of intra-aortic balloon pump. He also has a history of obstructive lung disease chronic renal failure and needed dialysis briefly. He also underwent a tracheostomy. That has all improved significantly. He is currently being treated for non-small cell lung carcinoma and underwent radiation therapy to the right lung and mediastinum from May to June of 2022. He was diagnosed with atrial fibrillation flutter and at some point he was advised to undergo pacemaker placement but he refused. He was on combination beta-josselyn and calcium channel joseslyn and during this visit he was noted to have an elevated natruretic peptide level he was diuresed an echocardiogram performed in February 2025 demonstrated an ejection fraction of 55% moderate mitral regurgitation moderate tricuspid regurgitation and persistent atrial flutter for which she remained on the beta-josselyn and calcium channel josselyn. He was getting ready to be discharged today and had multiple lightheaded episodes and pauses over 8 seconds. Cardiology was called for further evaluation and management. His initial presenting EKG demonstrated what appeared to be sinus tachycardia or junctional tachycardia. He has documented pauses over 8 seconds present. [facility] Medical History Peripheral arterial disease Other persistent atrial fibrillation New onset atrial flutter COVID Wears hearing aid in both ears Former smoker Coronary artery disease Peripheral vascular occlusive disease BPH (benign prostatic hyperplasia) Chronic kidney disease, stage 3 Atherosclerosis of coronary artery of [place] heart without angina pectoris Hyperlipidemia Lower extremity edema Venous insufficiency Malnutrition Delayed wound healing Osteomyelitis of ankle, left, acute Ulcer of left lower extremity with fat layer exposed Type 2 diabetes mellitus with diabetic polyneuropathy Anemia GERD (gastroesophageal reflux disease) Hypertension Home Medications ?Medication ?Instructions ?Recorded ?Last Taken ?Type insulin glargine 100 unit/mL 30 unit SQ QHS diabetes 0 11/19/19 03/03/25 History subcutaneous solution multivitamin (Daily Multi-Vitamin 1 tab PO DAILY suppl ement 06/28/20 03/03/25 History tablet) sitagliptin phosphate 50 mg tablet 50 mg PO DAILY diab etes 11/02/21 03/03/25 History (Januvia) pravastatin 20 mg tablet 20 mg PO DAILY hyperlipidemi a 01/17/22 03/03/25 History cranberry 500 mg capsule 500 mg PO DAILY supplement 1 09/25/22 03/03/25 History docusate sodium 100 mg capsule 100 mg PO DAILY PRN sto ol softn 07/25/23 Unknown History (Colace) albuterol sulfate 90 mcg/actuation 2 puff inhalation Q 4H PRN 10/23/24 Unknown Rx aerosol inhaler shortness of breath or wheez ing #3 device umeclidinium 62.5 mcg-vilanterol 1 inh inhalation QDAY copd #60 ea 10/23/24 03/03/25 Rx 25 mcg/actuation powdr for inhalation (Anoro Ellipta) apixaban 5 mg tablet (Eliquis) 2.5 mg (1/2 x 5 mg) PO BID blood 03/09/25 Unknown Rx thinner 30 days #30 tabs guaifenesin 1,200 mg tablet, 1,200 mg PO Q12H cough 7 days #14 03/09/25 Unknown Rx extended release 12 hr tabs tamsulosin 0.4 mg capsule 0.4 mg PO DAILY@1730 prostat e 30 03/09/25 Unknown Rx days #30 caps metoprolol succinate 25 mg 12.5 mg (1/2 x 25 mg) PO BI D blood 04/03/25 Unknown Rx tablet,extended release 24 hr thinner #90 tabs clopidogrel 75 mg tablet 75 mg PO DAILY anti platelet 04/05/25 Unknown History insulin glargine 100 unit/mL (3 unit subcut 04/05/25 U nknown History mL) subcutaneous pen (Lantus Solostar U-100 Insulin) cefdinir 300 mg capsule 300 mg PO BID #10 caps 04/08 Unknown Rx furosemide 40 mg tablet (Lasix) 40 mg PO DAILY #60 tab s 04/08/25 Unknown Rx guaifenesin 600 mg tablet, 1,200 mg (2 x 600 mg) PO BI D #20 04/08/25 Unknown Rx extended release 12 hr (Mucinex) tabs prednisone 20 mg tablet 20 mg PO BID #10 tabs Unknown Rx Allergy/AdvReac Type Severity Reaction Status Date / Time ibuprofen Allergy Severe Facial Verified 04/05/25 16:44 swelling (angioedema) Family History Brother Diabetes Father , Age 72 stomach ulcers No problems noted. Mother , Age 71 pancreatitis No problems noted. Sister , hepatitis C No problems noted. Surgical History H/O aorto-femoral bypass (~2009) History of transurethral resection of prostate Presence of aortocoronary bypass graft (~03/2013) Social History Smoking Status: Former smoker Tobacco: How many years used: 30 how long ago did patient quit smokin years Physical Exam Const alert, oriented x3 and no apparent distress General Appearance: cooperative HEENT hearing grossly normal bilaterally Head and Scalp: atraumatic Eyes EOMs intact bilaterally Neck General: normal visual inspection Chest inspection of chest normal and palpation of chest normal Resp normal respiratory effort Auscultation: clear to auscultation bilaterally Cardio S1 normal heart sound and S2 normal heart sound Jugular Venous Distention: JVD Rhythm: abnormal rhythm irregularly irregular GI normal to inspection, nondistended, normoactive bowel sounds Extremity normal capillary refill and no pedal edema Peripheral Pulses: Yes pulses 2+ throughout and femoral pulses present Skin no rashes or lesions noted Neuro oriented x3 and CN's II-XII intact bilaterally Psych Appearance: grossly normal and appropriate Objective Data Vital Signs: Vital Signs Temp Pulse Resp BP Pulse Ox O2 Del Method O2 Flow Rate 97.5 F L 88 18 122/75 H 95 Nasal Cannula 2 04/08/25 17:20 04/08/25 17:20 04/08/25 17:20 04/08/25 17:20 04/08/25 17:20 04/08/25 17:20 04/08/25 17:20 FiO2 35 04/07/25 00:00 Oxygen Flow Rate (L/min) 2 Oxygen Delivery Method Nasal Cannula Weight: 160 lb 14.999 oz Body Mass Index (BMI) 25.9 Intake & Output: Intake and Output for Last 24 Hours 04/06/25 04/07/25 04/08/25 23:59 23:59 23:59 Intake Total 1680 / 1680 250 / 250 600 / 600 Output Total 2500 / 2500 2200 / 2200 600 / 600 Balance -820 / -820 -1950 / -1950 0 / 0 Lab / Micro Data 04/08/25 05:13 04/08/25 05:13 Labs: Laboratory Results - last 24 hr 04/07/25 16:11: POC Glucose 272 H 04/07/25 21:06: POC Glucose 249 H 04/08/25 05:13: WBC 6.9, RBC 3.09 L, Hgb 8.3 L, Hct 27.0 L, MCV 87.4, MCH 26.9 L , MCHC 30.7 L, RDW Std Deviation 54.2 H, RDW Coeff of Reggie 17.2 H, Plt Count 192, MPV 10.7, Immature Gran % (Auto) 0.600, Neut % (Auto) 91.4 H, Lymph % (Auto) 3.5 L, [place] % (Auto) 4.5, Eos % (Auto) 0.0, Baso % (Auto) 0.0, Absolute Neuts (auto) 6.3, Absolute Lymphs (auto) 0.24 L, Nucleated RBC % 0, Sodium 138, Potassium 4.0, Chloride 95 L, Carbon Dioxide 32.0, Anion Gap 11, BUN 65 H, Creatinine 1.91 H, Estim Creat Clear Calc 27.84 L, Est GFR (MDRD) Non-Af 35 L, BUN/Creatinine Ratio 33.8 H, Glucose 240 H, Calcium 8.6 04/08/25 06:29: POC Glucose 199 H 04/08/25 13:01: POC Glucose 270 H 04/08/25 17:04: POC Glucose 216 H Cardiology Labs/Tests 04/08/25 05:13: WBC 6.9, RBC 3.09 L, Hgb 8.3 L, Hct 27.0 L, MCV 87.4, MCH 26.9 L , MCHC 30.7 L, Plt Count 192, MPV 10.7, Immature Gran % (Auto) 0.600, Neut % (Auto) 91.4 H, Lymph % (Auto) 3.5 L, [place] % (Auto) 4.5, Eos % (Auto) 0.0, Baso % (Auto) 0.0, Absolute Neuts (auto) 6.3, Nucleated RBC % 0, Sodium 138, Potassium 4.0, Chloride 95 L, Carbon Dioxide 32.0, Anion Gap 11, BUN 65 H, Creatinine 1.91 H, Est GFR (MDRD) Non-Af 35 L, BUN/Creatinine Ratio 33.8 H, Glucose 240 H, Calcium 8.6 Rhythm: EKG: ECHO: Stress Test: Cardiac Cath: PCI: CT Surgery: Holter monitor: EPS: PPM: CXR: Chest CT Scan: AYDEN Risk Score for UA/STEMI Assesmment (YES = 1) Risk Stratification Applicable: No
[2025-04-08] MEDS: 0.9% Normal Saline (1000mL) 1,000 ML 15 ML IV (22:44)
[2025-04-08] MEDS: Insulin Glargine-YFGN 100 UNIT/ML Pen 15 UNIT SC (22:44)
[2025-04-08] MEDS: MELATONIN 10 MG TABLET PO (22:51)
[2025-04-09] VITALS (23 sets, daily range): BP systolic 99–155; BP diastolic 52–94; PULSE 83–141; RESP 13–23; TEMP 35.8–36.7; O2SAT 96–100; BMI 26.6
--- NOTE | 2025-04-09 02:38 | EKG12_ITS ---
Test Reason : TACHY Blood Pressure : */* mmHG Vent. Rate : 135 BPM Atrial Rate : 270 BPM P-R Int : * ms QRS Dur : 136 ms QT Int : 328 ms P-R-T Axes : -87 24 -78 degrees QTcB Int : 492 ms Atrial flutter with 2:1 A-V conduction Right bundle branch block Abnormal ECG When compared with ECG of 05-Apr-2025 16:45, Atrial flutter has replaced Sinus rhythm ST more depressed Anterolateral leads Inverted T waves have replaced nonspecific T wave abnormality in Inferior leads Confirmed by SOLANGE STRATTON, TYSHAWN ([id number]), story editor AYDEN TENORIO ([id number]) on 04/09/2025 1:37:20 PM Referred By: Confirmed By: TYSHAWN NARVAEZ MD
[2025-04-09] MEDS: 0.9% Saline Lock 10 ML Syringe IV ×2 (03:15→06:40)
[2025-04-09 04:52] LABS: Hematocrit 27.7 % (40-54); Hemoglobin 8.6 g/dL (13.0-16.5); Immature Granulocytes Count 0.040 X10^3/uL (0.0-0.0); Mean Corp Hgb Conc 31.0 g/dL (32-36); Mean Corpuscular Volume 87.1 fL (80-94); Mean Platelet Vol. 10.1 fl (6.2-12.0); NRBC Flagged by Analyzer 0.3 % (0-5); POSITIVE DIFFERENTIAL YES; Platelet Count 203 K/mm3 (150-450); RBC Distribution Width CV 16.9 % (11.6-14.6); RBC Distribution Width SD 53.1 fl (35.1-43.9); Red Blood Count 3.18 M/mm3 (4.6-6.2); White Blood Count 6.9 K/mm3 (4.4-11.0)
[2025-04-09 05:04] LABS: Anion Gap 12 (5-15); BUN 74 mg/dL (4-19); BUN/Creat Ratio 37.7 RATIO (10-20); Calcium,Total 8.4 mg/dL (7.6-11.0); Carbon Dioxide 31.9 mmol/L (21.0-32.0); Chloride 92 mmol/L (98-108); Estimated Creatinine Clearance 27.26 ml/min (50-250); Glucose 232 mg/dL (70-99); Magnesium 2.2 mg/dL (1.5-2.2); Potassium 3.9 mmol/L (3.3-5.1)
[2025-04-09] MEDS: Diltiazem 125 MG in Dextrose 5%-Water (100mL Bag) 100 ML IV (06:33)
--- NOTE | 2025-04-09 11:25 | PCM.PN.HOSP ---
Reason for Visit Chief Complaint: SOB, Cough and Hypotension. Subjective Subjective Plan was for patient to be discharged home however discharge was discontinued after patient complained of feeling lightheaded. Systolic blood pressure was in the high 90s. Telemetry did demonstrate significant sinus pauses. Patient is on Cardizem as well as beta-blockers both held consult placed to cardiology for tachybradycardia syndrome. Case discussed with Dr. Looney plans to undergo pacemaker placement Objective Data Objective Data Vital Signs: Vital Signs Temp Pulse Resp BP Pulse Ox O2 Del Method O2 Flow Rate 98.0 F 86 17 99/60 100 Nasal Cannula 2 04/09/25 08:00 04/09/25 11:00 04/09/25 08:00 04/09/25 11:00 04/09/25 08:00 04/09/25 07:30 04/09/25 08:00 FiO2 35 04/07/25 00:00 Oxygen Flow Rate (L/min) 2 Oxygen Delivery Method Nasal Cannula Weight: 74.9 kg Body Mass Index (BMI) 26.6 Intake & Output: Intake and Output for Last 24 Hours 04/07/25 04/08/25 04/09/25 23:59 23:59 23:59 Intake Total 250 / 250 1100 / 1100 22.25 / 22.25 Output Total 2200 / 2200 1600 / 1600 350 / 350 Balance -1950 / -1950 -500 / -500 -327.75 / -327.75 Lab / Micro Data 04/09/25 04:41 04/09/25 04:41 Labs: Laboratory Results - last 24 hr 04/08/25 13:01: POC Glucose 270 H 04/08/25 17:04: POC Glucose 216 H 04/08/25 22:42: POC Glucose 273 H 04/09/25 04:41: WBC 6.9, RBC 3.18 L, Hgb 8.6 L, Hct 27.7 L, MCV 87.1, MCH 27.0, MCHC 31.0 L, RDW Std Deviation 53.1 H, RDW Coeff of Reggie 16.9 H, Plt Count 203, MPV 10.1, Immature Gran % (Auto) 0.600, Neut % (Auto) 91.8 H, Lymph % (Auto) 2.8 L, Gage % (Auto) 4.7, Eos % (Auto) 0.0, Baso % (Auto) 0.1, Absolute Neuts (auto) 6.3, Absolute Lymphs (auto) 0.19 L, Nucleated RBC % 0.3, Sodium 135, Potassium 3.9, Chloride 92 L, Carbon Dioxide 31.9, Anion Gap 12, BUN 74 H, Creatinine 1.95 H, Estim Creat Clear Calc 27.26 L, Est GFR (MDRD) Non-Af 34 L, BUN/Creatinine Ratio 37.7 H, Glucose 232 H, Calcium 8.4, Phosphorus 3.9, Magnesium 2.2 04/09/25 06:37: POC Glucose 209 H Micro: Microbiology 04/06/25 06:47 Mucosa - Nasopharyngeal Respiratory Panel (PCR) - Final 04/05/25 17:05 Mucosa - Nose SARS-CoV-2, Influenza & RSV (PCR) - Final Physical Exam Narrative S GENERAL: cooperative, dyspneic at rest HEENT: Atraumatic; normocephalic EYES; Anicteric, Normal Conjunctiva NECK; supple, normal thyroid, RESPIRATORY: Diminished to auscultation CARDIOVASCULAR: Irregular S1 S2, GI: soft, normoactive bowel sounds, : No Renal angle tenderness; EXTREMITIES: No edema, no clubbing, MUSCULOSKELETAL: no muscle wasting NEURO: Awake; no lateralizing signs. SKIN: No Rash PSYCH; Flat affect Const Constitutional Narrative: Patient has chronically ill but nontoxic appearance. Resp Resp Narrative: Diminished breath sounds throughout. Skin Skin Narrative: Patient has evidence of rash, abscess, wounds or jaundice. Assessment & Plan Assessment/Plan (1) Acute on chronic diastolic congestive heart failure: PLAN: Plan Patient is an 80-year-old gentleman with multiple comorbidities including chronic congestive heart failure with preserved ejection fraction, chronic kidney disease stage IV who presented with progressive shortness of breath. Imaging studies demonstrated features consistent with pulmonary vascular congestion and assessment of acute congestive heart failure admitted admitted to monitored bed for further management 1. Acute on chronic congestive heart failure with preserved ejection fraction ? Echo from 03/05/2025 demonstrated EF of 55% with PASP of 42 mmHg. Patient admitted to monitored bed manage with strict input and output, fluid restriction, daily weights as well as diuretic therapy with furosemide ? Patient continues to diurese well plan is for patient to be assessed for discharge ? 04/09/2025; patient discharged the day prior was placed on hold after he experienced a long pause. 2. 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 Plan is for patient to be assessed for home oxygen prior to discharge. Patient current setting is 3 L with activity and 2 L at baseline. Patient daughter had asked for palliative care consultation the day prior consult was placed ? 04/09/2025; patient requested for her scheduled bronchodilator treatment to be changed to as needed 3. Hyperkalemia ? Present on admission potassium level was 5.8. Treated per protocol potassium as of 04/07/2025 is 4.6 4. DARIUSZ superimposed chronic kidney disease stage IV ? Patient kidney function at baseline. Patient being followed by nephrology ? 04/08/2025 patient creatinine down to 1.91 5. Tachybradycardia syndrome Plan was for patient to be discharged home however discharge was discontinued after patient complained of feeling lightheaded. Systolic blood pressure was in the high 90s. Telemetry did demonstrate significant sinus pauses. Patient is on Cardizem as well as beta-blockers both held consult placed to cardiology for tachybradycardia syndrome. Plan for patient to undergo pacemaker placement on 04/09/2025 6. Coronary artery disease ? With previous CABG; patient is on guideline directed medical therapy 7. History of non-small cell lung CA involving the right upper lobe ? Patient was treated with radiation therapy currently followed by [facility] oncology and will start 8. Chronic persistent A-fib ? Rate controlled on systemic anticoagulation with apixaban 9. Hypertension ? Blood pressure controlled, home medications continued with dose adjustment as needed 10. Diabetes mellitus type 2 ? Patient was on long-acting insulin with glargine 30 units at bedtime home discontinued also placed on Accu-Cheks AC and at bedtime with sliding scale coverage 11. BPH with lower urinary obstructive symptoms - Patient treated with tamsulosin 12. COPD ? Currently not in exacerbation did continue patient bronchodilator as well as inhaled corticosteroid treatment regimen 13. Dyslipidemia ?Patient is on statin therapy, continued at home dose 14. Chronic degenerative arthritis - Tylenol as needed 15. Peripheral artery disease -with history of left lower extremity ulcer status post aortofemoral bypass graft in 2009 and chronic venous insufficiency. 16 . Anemia ? Secondary to chronic disorder monitoring H&H and transfuse if patient becomes symptomatic or hemoglobin falls below 7 17. DVT prophylaxis ? Patient is on apixaban Time spent in the patient's overall evaluation,decision-making process, review of diagnostic data, adjustment of management, discussion with other providers, nursing nursing and ancillary staff involved in patient's care documentation, 50 Minutes Charges/Coding Visit Charges Inpatient E&M: 31341 Subs Hosp L3
--- NOTE | 2025-04-09 15:17 | PACEMAKER_ITS ---
Pacemaker Procedure Note Pacemaker Procedure Note Simone Gunter is a 80 year old male who has a past medical history of CAD s/p CABG, COPD, CKD, and chronic respiratory failure, who presented to the [place] EP lab for further evaluation regarding implantation of a dual chamber pacemaker for AV block. The patient was brought to the electrophysiology laboratory in a fasting state. Sedation provided by nursing staff. A venogram of the left axillary vein was performed. The left shoulder area was prepped and draped in the usual manner and the skin and subcutaneous tissues below the left clavicle were infiltrated with 1% lidocaine for local anesthesia. The skin was sharply incised. Electrocautery and blunt dissection were carried out to the level of the pectoralis fascia and extended inferomedially to create a pocket for the pulse generator. Access to the left axillary vein was obtained x1 with a needle using real-time fluorosco pic guidance. 2 guide wires were advanced to the right atrium and peel-away introducer sheaths were used to insert the leads. The right ventricular lead was placed in the RV apical septum. The right atrial lead was placed in the right atrial appendage. The leads were tested with a pacing systems analyzer and the results are noted above. The leads were then anchored in place with silk sutures around their suture sleeve and connected to the pulse generator. The device was noted to function appropriately. The pocket was noted to have an absence of active bleeding. The pulse generator was placed in the pocket and sutured to the pre-pectoral fascia. The pocket was then irrigated with antibiotic solution. The incision was closed with two layers of 2-0 Vicryl and a subcuticular closure of 4-0 Vicryl. The incision was dressed with Aquacel. Conclusions Successful implantation of a dual chamber pacemaker with adequate pacing threshold, sensing and lead impedance. Atrial lead placed due to possibility of restoring sinus rhythm once recovered from acute illness. Recommendations 1. Routine follow-up in the device clinic. 2. Aquacell to remain on for 1 week. 3. Device follow up as scheduled. 4. Hold anticoagulation for 48 hours (No heparin IV or NOAC, ok to continue warfarin). 5. Pressure dressing. 6. Further recommendaations per cardiology consult team 7. Consider cardioverison in the future to restore sinus rhythm once recovered from acute illness.
--- NOTE | 2025-04-09 19:57 | RAD_ITS ---
PROCEDURE: CHEST 1 VIEW (PORTABLE) 04/09/2025 REASON FOR EXAM: DO WITHIN 2-4 HOURS OF PROCEDURE TECHNIQUE: Frontal view of the chest. COMPARISON: Chest x-ray today April 06, 2025. FINDINGS: Hardware: Status post median sternotomy. Left-sided pacemaker with 2 leads in the in the right atrium and right ventricle. Heart: No cardiomegaly. Tortuosity of the thoracic calcifications of the aorta. Lungs: Bilateral diffuse interstitial and airspace opacities suggestive of CHF. Large bilateral pleural effusions. Bones: No acute bony abnormalities. RAD/Chest 1 View (Portable) IMPRESSION: Bilateral pulmonary densities and pleural effusions consistent with CHF. Reading Location: [id number]
--- NOTE | 2025-04-09 20:33 | CPS ---
PATIENT REFUSED PAP THERAPY FOR NIGHT TIME USE.
[2025-04-09] MEDS: Insulin Glargine-YFGN 100 UNIT/ML Pen 15 UNIT SC (20:56)
[2025-04-10] VITALS (13 sets, daily range): BP systolic 131–148; BP diastolic 65–82; PULSE 105–113; RESP 18–38; TEMP 36.6–37; O2SAT 90–100; BMI 26.6; BMI 26.7
[2025-04-10 05:45] LABS: Hematocrit 28.2 % (40-54); Hemoglobin 8.7 g/dL (13.0-16.5); Immature Granulocytes Count 0.080 X10^3/uL (0.0-0.0); Mean Corp Hgb Conc 30.9 g/dL (32-36); Mean Corpuscular Volume 87.0 fL (80-94); Mean Platelet Vol. 10.0 fl (6.2-12.0); NRBC Flagged by Analyzer 0.2 % (0-5); POSITIVE DIFFERENTIAL YES; Platelet Count 208 K/mm3 (150-450); RBC Distribution Width CV 17.1 % (11.6-14.6); RBC Distribution Width SD 53.5 fl (35.1-43.9); Red Blood Count 3.24 M/mm3 (4.6-6.2); White Blood Count 9.0 K/mm3 (4.4-11.0)
[2025-04-10 06:39] LABS: Anion Gap 12 (5-15); BUN 76 mg/dL (4-19); BUN/Creat Ratio 44.4 RATIO (10-20); Calcium,Total 8.4 mg/dL (7.6-11.0); Carbon Dioxide 32.1 mmol/L (21.0-32.0); Chloride 92 mmol/L (98-108); Estimated Creatinine Clearance 31.09 ml/min (50-250); Glucose 244 mg/dL (70-99); Potassium 4.1 mmol/L (3.3-5.1)
--- NOTE | 2025-04-10 07:49 | CT_ITS ---
PROCEDURE: CHEST WITHOUT CONTRAST 04/10/2025 REASON FOR EXAM: DYSPNEA TECHNIQUE: Chest CT without contrast. Coronal and Sagittal reconstruction series were provided. One or more dose reduction techniques were used (e.g., Automated exposure control, adjustment of the mA and/or kV according to patient size, use of iterative reconstruction technique RADIATION DOSE SUMMARY: CTDlvol: 16.51 mGy DLP: 561.19 mGycm COMPARISON: Prior chest radiograph dated April 09, 2025. FINDINGS: Hardware: A left-sided pacemaker is seen. Lymph nodes: Calcified precarinal lymph node. Heart and Vasculature: Mild cardiomegaly. Calcification of the coronary arteries. Coronary Artery Calcifications: Present Lungs and Airways: Moderate-sized right pleural effusion with the compressive atelectasis at the right lung base. Airspace disease in the right upper lobe with the volume loss. Increased interstitial markings in both lungs suggestive of possible CHF. Small left pleural effusion with left basilar atelectasis. Pleura: Bilateral pleural effusions right greater than left as described. Upper Abdomen: Unremarkable Bones: Degenerative changes of the thoracic spine. CT/Chest without Contrast IMPRESSION: Coronary artery calcification (CAC) is is present Moderate right pleural effusion with compressive atelectasis in the right lower lobe as well as airspace disease in the right upper lobe with volume loss. Small left pleural effusion with left basilar atelectasis. Findings suggestive of CHF. Reading Location: [id number]
--- NOTE | 2025-04-10 07:50 | PCM.PN.HOSP ---
Reason for Visit Chief Complaint: SOB, Cough and Hypotension. Subjective Subjective Patient seen dyspneic at rest. Patient underwent pacemaker placement on 04/09/2025 on account of tachybradycardia syndrome. Checks x-ray obtained subsequently did not demonstrate any pneumothorax. However did order CT of the chest given patient being dyspneic at rest which demonstrated right moderate pleural effusion. Requisition was placed for patient to undergo ultrasound guided thoracocentesis with accompanying diagnostic studies Objective Data Objective Data Vital Signs: Vital Signs Temp Pulse Resp BP Pulse Ox O2 Del Method O2 Flow Rate 97.8 F 108 H 20 H 131/80 H 100 Nasal Cannula 2 04/10/25 03:00 04/10/25 03:00 04/10/25 03:00 04/10/25 03:00 04/10/25 03:20 04/10/25 03:20 04/10/25 03:20 FiO2 35 04/07/25 00:00 Oxygen Flow Rate (L/min) 2 Oxygen Delivery Method Nasal Cannula Weight: 75.2 kg Body Mass Index (BMI) 26.7 Intake & Output: Intake and Output for Last 24 Hours 04/08/25 04/09/25 04/10/25 23:59 23:59 23:59 Intake Total 1100 / 1100 313.42 / 313.42 Output Total 1600 / 1600 350 / 350 Balance -500 / -500 -36.58 / -36.58 Lab / Micro Data 04/10/25 05:25 04/10/25 05:25 Labs: Laboratory Results - last 24 hr 04/09/25 20:51: POC Glucose 316 H 04/10/25 05:25: WBC 9.0, RBC 3.24 L, Hgb 8.7 L, Hct 28.2 L, MCV 87.0, MCH 26.9 L, MCHC 30.9 L, RDW Std Deviation 53.5 H, RDW Coeff of Reggie 17.1 H, Plt Count 208, MPV 10.0, Immature Gran % (Auto) 0.900, Neut % (Auto) 91.6 H, Lymph % (Auto) 1.9 L, Banner % (Auto) 5.5, Eos % (Auto) 0.0, Baso % (Auto) 0.1, Absolute Neuts (auto) 8.2 H, Absolute Lymphs (auto) 0.17 L, Nucleated RBC % 0.2, Sodium 137, Potassium 4.1, Chloride 92 L, Carbon Dioxide 32.1 H, Anion Gap 12, BUN 76 H, Creatinine 1.71 H, Estim Creat Clear Calc 31.09 L, Est GFR (MDRD) Non-Af 40 L, BUN/Creatinine Ratio 44.4 H, Glucose 244 H, Calcium 8.4 04/10/25 06:16: POC Glucose 236 H Micro: Microbiology 04/06/25 06:47 Mucosa - Nasopharyngeal Respiratory Panel (PCR) - Final 04/05/25 17:05 Mucosa - Nose SARS-CoV-2, Influenza & RSV (PCR) - Final Radiography Diagnostic Testing: Radiology Impression Chest X-Ray 04/09/25 19:57 IMPRESSION: Bilateral pulmonary densities and pleural effusions consistent with CHF. Reading Location: [facility] Physical Exam Narrative S GENERAL: dyspneic at rest HEENT: Atraumatic; normocephalic EYES; Anicteric, Normal Conjunctiva NECK; supple, normal thyroid, RESPIRATORY: Diminished to auscultation CARDIOVASCULAR: Irregular S1 S2, GI: soft, normoactive bowel sounds, : No Renal angle tenderness; EXTREMITIES: No edema, no clubbing, MUSCULOSKELETAL: Left upper extremity immobilized NEURO: Awake; no lateralizing signs. SKIN: Pacemaker site CDI PSYCH; Flat affect Assessment & Plan Assessment/Plan (1) Acute on chronic diastolic congestive heart failure: PLAN: Plan Patient is an 80-year-old gentleman with multiple comorbidities including chronic congestive heart failure with preserved ejection fraction, chronic kidney disease stage IV who presented with progressive shortness of breath. Imaging studies demonstrated features consistent with pulmonary vascular congestion and assessment of acute congestive heart failure admitted admitted to monitored bed for further management 1. Acute on chronic congestive heart failure with preserved ejection fraction ? Echo from 03/05/2025 demonstrated EF of 55% with PASP of 42 mmHg. Patient admitted to monitored bed manage with strict input and output, fluid restriction, daily weights as well as diuretic therapy with furosemide ? Patient continues to diurese well plan is for patient to be assessed for discharge ? 04/09/2025; patient discharged the day prior was placed on hold after he experienced a long pause. ? 04/10/2025; patient diuretic therapy restarted 2. Tachybradycardia syndrome Plan was for patient to be discharged home however discharge was discontinued after patient complained of feeling lightheaded. Systolic blood pressure was in the high 90s. Telemetry did demonstrate significant sinus pauses. Patient is on Cardizem as well as beta-blockers both held consult placed to cardiology for tachybradycardia syndrome. Plan for patient to undergo pacemaker placement on 04/09/2025 ? 04/10/2025; patient underwent pacemaker placement by Dr. Looney on 04/09/2025 3. 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 Plan is for patient to be assessed for home oxygen prior to discharge. Patient current setting is 3 L with activity and 2 L at baseline. Patient daughter had asked for palliative care consultation the day prior consult was placed ? 04/09/2025; patient requested for her scheduled bronchodilator treatment to be changed to as needed ? 04/10/2025; with patient being significantly dyspneic at rest decision was made to order CT of the chest which demonstrated moderate right pleural effusion with compressive atelectasis 4. Moderate right-sided pleural effusion ? CT of the chest ordered as part of his eval did show Moderate right pleural effusion with compressive atelectasis in the right lower lobe as well as airspace disease in the right upper lobe with volume loss. Small left pleural effusion with left basilar atelectasis. Findings suggestive of CHF. - An order was given for patient to undergo ultrasound-guided thoracocentesis patient is on apixaban which had been held for his pacemaker placement. Use of incentive spirometry also ordered. Did order serum LDH body fluid LDH, Protein culture as well as cytology given patient previous history of lung malignancy 4. Hyperkalemia ? Present on admission potassium level was 5.8. Treated per protocol potassium as of 04/07/2025 is 4.6 5. DARIUSZ superimposed chronic kidney disease stage IV ? Patient kidney function at baseline. Patient being followed by nephrology ? 04/08/2025 patient creatinine down to 1.91 6. Coronary artery disease ? With previous CABG; patient is on guideline directed medical therapy 7. History of non-small cell lung CA involving the right upper lobe ? Patient was treated with radiation therapy currently followed by [facility] oncology and will start 8. Chronic persistent A-fib ? Rate controlled on systemic anticoagulation with apixaban 9. Hypertension ? Blood pressure controlled, home medications continued with dose adjustment as needed 10. Diabetes mellitus type 2 ? Patient was on long-acting insulin with glargine 30 units at bedtime home discontinued also placed on Accu-Cheks AC and at bedtime with sliding scale coverage 11. BPH with lower urinary obstructive symptoms - Patient treated with tamsulosin 12. COPD ? Currently not in exacerbation did continue patient bronchodilator as well as inhaled corticosteroid treatment regimen 13. Dyslipidemia ?Patient is on statin therapy, continued at home dose 14. Chronic degenerative arthritis - Tylenol as needed 15. Peripheral artery disease -with history of left lower extremity ulcer status post aortofemoral bypass graft in 2009 and chronic venous insufficiency. 16 . Anemia ? Secondary to chronic disorder monitoring H&H and transfuse if patient becomes symptomatic or hemoglobin falls below 7 17. DVT prophylaxis ? Patient is on apixaban Time spent in the patient's overall evaluation,decision-making process, review of diagnostic data, adjustment of management, discussion with other providers, nursing nursing and ancillary staff involved in patient's care documentation, 52 Minutes Charges/Coding Visit Charges Inpatient E&M: 63283 Subs Hosp L3
--- NOTE | 2025-04-10 09:12 | US_ITS ---
PROCEDURE: THORACENTESIS W US 04/10/2025 REASON FOR EXAM: MODERATE RIGHT-SIDED PLEURAL EFFUSION TECHNIQUE: Diagnostic and therapeutic right THORACENTESIS W US COMPARISON: CT chest of 04/10/2025 FINDINGS: Procedure: Following informed consent, and using standard sterile technique, a therapeutic and diagnostic right thoracentesis was performed under sonographic guidance. 2% lidocaine local anesthesia was followed by placement of a 5 German catheter into the right pleural fluid collection. Approximately 1270 mL of clear yellow fluid was successfully removed, a portion sent to the laboratory for evaluation. No complication was encountered, and the patient left the department in good condition without significant complaint. US/Thoracentesis W US IMPRESSION: Successful diagnostic and therapeutic ultrasound-guided right thoracentesis. L aboratory results pending. Reading Location: [place] [id number]
[2025-04-10 10:14] LABS: LDH 179 U/L (87-241)
[2025-04-10] MEDS: 0.9% Saline Lock 10 ML Syringe IV (10:16)
--- NOTE | 2025-04-10 10:26 | PCM.PN.REN ---
Subjective Subjective Sitting in chair, no complaints. Objective Data Objective Data Vital Signs: Vital Signs Temp Pulse Resp BP Pulse Ox O2 Del Method O2 Flow Rate 98.4 F 109 H 20 H 148/82 H 90 Nasal Cannula 2 04/10/25 08:52 04/10/25 08:54 04/10/25 08:52 04/10/25 08:54 04/10/25 09:35 04/10/25 08:52 04/10/25 09:35 FiO2 35 04/07/25 00:00 Oxygen Flow Rate (L/min) 2 Oxygen Delivery Method Nasal Cannula Weight: 75.2 kg Body Mass Index (BMI) 26.7 Intake & Output: Intake and Output for Last 24 Hours 04/08/25 04/09/25 04/10/25 23:59 23:59 23:59 Intake Total 1100 / 1100 313.42 / 313.42 Output Total 1600 / 1600 350 / 350 Balance -500 / -500 -36.58 / -36.58 Lab / Micro Data 04/10/25 05:25 04/10/25 05:25 Labs: Laboratory Results - last 24 hr 04/09/25 20:51: POC Glucose 316 H 04/10/25 05:25: WBC 9.0, RBC 3.24 L, Hgb 8.7 L, Hct 28.2 L, MCV 87.0, MCH 26.9 L, MCHC 30.9 L, RDW Std Deviation 53.5 H, RDW Coeff of Reggie 17.1 H, Plt Count 208, MPV 10.0, Immature Gran % (Auto) 0.900, Neut % (Auto) 91.6 H, Lymph % (Auto) 1.9 L, [place] % (Auto) 5.5, Eos % (Auto) 0.0, Baso % (Auto) 0.1, Absolute Neuts (auto) 8.2 H, Absolute Lymphs (auto) 0.17 L, Nucleated RBC % 0.2, Sodium 137, Potassium 4.1, Chloride 92 L, Carbon Dioxide 32.1 H, Anion Gap 12, BUN 76 H, Creatinine 1.71 H, Estim Creat Clear Calc 31.09 L, Est GFR (MDRD) Non-Af 40 L, BUN/Creatinine Ratio 44.4 H, Glucose 244 H, Calcium 8.4, Lactate Dehydrogenase 179 04/10/25 06:16: POC Glucose 236 H Micro: Microbiology 04/06/25 06:47 Mucosa - Nasopharyngeal Respiratory Panel (PCR) - Final 04/05/25 17:05 Mucosa - Nose SARS-CoV-2, Influenza & RSV (PCR) - Final Radiography Diagnostic Testing: Radiology Impression Chest X-Ray 04/09/25 19:57 IMPRESSION: Bilateral pulmonary densities and pleural effusions consistent with CHF. Reading Location: [facility] Chest CT 04/10/25 07:49 IMPRESSION: Coronary artery calcification (CAC) is is present Moderate right pleural effusion with compressive atelectasis in the right lower lobe as well as airspace disease in the right upper lobe with volume loss. Small left pleural effusion with left basilar atelectasis. Findings suggestive of CHF. Reading Location: [facility] Physical Exam Narrative Alert and oriented x 3, no apparent distress S1, S2, rhythm irregular, rate controlled clear breath sounds. On O2 nasal cannula Abdomen soft, nontender, nondistended No pitting edema Assessment & Plan Assessment/Plan (1) DARIUSZ (acute kidney injury): (2) CKD (chronic kidney disease), stage IV: (3) Respiratory insufficiency: PLAN: Plan This is a pleasant 80-year-old male with past medical history significant for HFpEF, diabetes mellitus type 2, chronic kidney disease stage III/IV, coronary artery disease status post coronary artery bypass graft x 3 in 2012, chronic atrial fibrillation, history of COPD, history of NSCLC right lung followed by oncology currently on observation, chronic respiratory failure on home O2 3 L nasal cannula continuous who presented to the emergency room with complaints of shortness of breath, hypotension, admitted for respiratory insufficiency secondary to acute exacerbation chronic diastolic heart failure, COPD, and possible pneumonia. Nephrology consulted in view of elevated creatinine. -DARIUSZ superimposed on CKD stage IIIb/IV. Patient has history of chronic kidney disease secondary diabetic nephropathy and residual damage of kidney from prior ATN after CABG at [place] March 2013 (patient required hemodialysis for short period of time). Patient had been seen in our office, last seen in April 2021, at that time baseline creatinine ranging around 1.5 to 1.9 mg/dL. Probable progression of CKD since last seen in April 2021. Possible new baseline creatinine ranging around 1.9 to 2.2 mg/dL however patient does have some fluctuations in serum creatinine. SCr 2.57 on admission, today SCr 1.71. Was on Lasix 40 mg IV twice daily. Breathing is better. Good urine output. Renal ultrasound, normal ultrasound, no hydronephrosis. Urine protein creatinine ratio 1.6 g. - heart block status post pacemaker placement yesterday. - Acute on chronic hypoxic respiratory failure secondary to mild COPD exacerbation and heart failure exacerbation. Patient has known history of congestive heart failure, echo February 2025: EF 55%, stage I diastolic dysfunction, moderate concentric left ventricular hypertrophy. Diuresed with Lasix. Originally on IV steroids, now on prednisone and breathing treatments. Breathing has improved. We will arrange for hospital follow-up after hospital discharge in [place] office. Assessment and plan reviewed with Dr. Saravia.
--- NOTE | 2025-04-10 10:44 | CASEMGMT ---
Addendum entered by Lisa Jovel 04/10/25 16:47: Patient has order for discharge. KHURRAM DAO received orders and med list. RN CM faxed discharge paperwork to TCU. Patient to discharge to TCU, skilled LOC. RN SYLWIA called DIL that patient to discharge today. DIL had no further questions or concerns. Addendum entered by Lisa Jovel 04/10/25 11:54: KHURRAM DAO received update from Dayanna from TCU that patient has been accepted and can discharge to TCU today. RN CM updated patient, patient voiced appreciation. RN CM called and updated Neelam ANDRADE, to discharge to TCU for additional therapy. DIL voiced appreciation. DIL had no further questions or concerns. RN SYLWIA updated hospitalist, awaiting orders. Original Note: KHURRAM DAO updated by therapy that patient would benefit from SNF at discharge for additional therapy. RN CM in to discuss discharge planning and discuss recommendations for SNF. Patient is agreeable to SNF for additional therapy. KHURRAM DAO provided SNF list to patient. Patient states he prefers TCU. Patient had no further questions or concerns. KHURRAM DAO placed referral to [facility] TCU, awaiting response. CM will continue to follow this patient and plan for a safe discharge.
[2025-04-10 10:47] LABS: Prothrombin Time (Protime)PT. 16.7 SECONDS (11.7-14.9)
[2025-04-10 10:48] LABS: Partial Thromboplast Time 29.5 Seconds (24.1-36.2)
--- NOTE | 2025-04-10 11:10 | CASEMGMT ---
Discharge Planning A list of?SNF providers including quality and resource use data and consistent with the patient's preferred geographic region, medical needs, and insurance network was created in [employer] Guide.? This list was provided to the RN SYLWIA. Carly Salmon, Discharge Planning Asst.
--- NOTE | 2025-04-10 15:00 | FLU_PTH ---
PATIENT: PEDRO HILLMAN LOC: [facility] U#:[id number] AGE/SX: 80/M ROOM: [facility] RE04/05/[address]: Dr. Nicola Roman MD : 1945 BED: 1 DIS: 04/10/2025 SPEC #: [id number] RECD: 04/10/25 15:25 STATUS: NOA REQ #: [id number] BERNIE: 04/10/25 15:[address]: Nicola Roman DEPT: CYTOLOGY RECD BY: Franklin Gilmore ENTERED: 04/13/25 10:01 SP TYPE: Fluid OTHR DR: MD Dr. Nicola Guzman DO Dr. Jayaprakas Dasari, MD Dr. Mark Stutzman, DO Dr. Prakash Chand, MD Tissues: A - Pleural fluid, NOS Procedures: Special Stain Group II Surgery Specimen Level IV Cytospin Fluid HEADER OPERATION: Ultrasound guided thoracentesis fluid PRE-OP DIAGNOSIS: Pleural effusion TISSUE SUBMITTED: A- Thoracentesis fluid for cytology DIAGNOSIS CYTOLOGY A. Pleural effusion, thoracentesis (cytospin, cellblock): - Atypical cells present, favor reactive. CYTOLOGY STUDY Slides are reviewed. CYTOLOGY GROSS A. Received is 110 ml of [id number] fluid labeled with the patient's name and and designated per the requisition as Thoracentesis fluid. Submitted for cytology and cell block preparation. Mr 04/13/2025 CPT: 03991,44748
[2025-04-10] MEDS: Lidocaine 2% (20 ml mdv) 20 ML Vial INFILT (15:03)
[2025-04-10 15:39] LABS: Body Fluid Mononuclear WBC # 0.121 10^3/uL; Body Fluid Mononuclear WBC % 94.6 %; Body Fluid Polynuclear WBC # 0.007 10^3/uL; Body Fluid Polynuclear WBC % 5.4 %; White Blood Count/Body Fluid 0.128 10^3/uL
[2025-04-10 15:55] LABS: Cytology, Body Fluid / CSF SEE PATHOLOGY REPORT
--- NOTE | 2025-04-10 16:10 | DS.PCM_ITS ---
Providers Date of Admission: 04/05/25 Date of Discharge: 04/10/25 Primary Care Physician: Dr. Luis Johnson, DO Consultations 04/05/25 20:36 Consult: Nephrology Routine Consulting Provider: Davon Saravia Reason for Consult: CKD; stage IV with Hyperkalemia and AE CHF. EMERGENT Consult: No MD Notified: Yes Date Notified: 04/06/25 Time Notified: 06:58 Method of Notification: Answering Service 04/06/25 07:14 Consult: Onc/Wound/accounting specialist Routine Comment: Reason for Consult:: burn R thigh 04/08/25 15:38 Consult: Cardiology Routine Consulting Provider: Issa Looney Reason for Consult: Sinus pauses EMERGENT Consult: No MD Notified: Yes Date Notified: 04/08/25 Time Notified: 15:38 Method of Notification: Text Reason For Visit: AE OF CHRONIC DIASTOLIC CHF, ELEVATED TROPONIN T Diagnosis Discharge Diagnosis (1) DARIUSZ (acute kidney injury): Status: Acute Code(s): N17.9 - Acute kidney failure, unspecified (2) CKD (chronic kidney disease), stage IV: Status: Chronic Code(s): N18.4 - Chronic kidney disease, stage 4 (severe) (3) Respiratory insufficiency: Status: Acute Code(s): R06.89 - Other abnormalities of breathing Plan Patient is an 80-year-old gentleman with multiple comorbidities including chronic congestive heart failure with preserved ejection fraction, chronic kidney disease stage IV who presented with progressive shortness of breath. Imaging studies demonstrated features consistent with pulmonary vascular congestion and assessment of acute congestive heart failure admitted admitted to monitored bed for further management 1. Acute on chronic congestive heart failure with preserved ejection fraction ? Echo from 03/05/2025 demonstrated EF of 55% with PASP of 42 mmHg. Patient admitted to monitored bed manage with strict input and output, fluid restriction, daily weights as well as diuretic therapy with furosemide ? Patient continues to diurese well plan is for patient to be assessed for discharge ? 04/09/2025; patient discharged the day prior was placed on hold after he experienced a long pause. ? 04/10/2025; patient diuretic therapy restarted 2. Tachybradycardia syndrome Plan was for patient to be discharged home however discharge was discontinued after patient complained of feeling lightheaded. Systolic blood pressure was in the high 90s. Telemetry did demonstrate significant sinus pauses. Patient is on Cardizem as well as beta-blockers both held consult placed to cardiology for tachybradycardia syndrome. Plan for patient to undergo pacemaker placement on 04/09/2025 ? 04/10/2025; patient underwent pacemaker placement by Dr. Looney on 04/09/2025 3. 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 Plan is for patient to be assessed for home oxygen prior to discharge. Patient current setting is 3 L with activity and 2 L at baseline. Patient daughter had asked for palliative care consultation the day prior consult was placed ? 04/09/2025; patient requested for her scheduled bronchodilator treatment to be changed to as needed ? 04/10/2025; with patient being significantly dyspneic at rest decision was made to order CT of the chest which demonstrated moderate right pleural effusion with compressive atelectasis 4. Moderate right-sided pleural effusion ? CT of the chest ordered as part of his eval did show Moderate right pleural effusion with compressive atelectasis in the right lower lobe as well as airspace disease in the right upper lobe with volume loss. Small left pleural effusion with left basilar atelectasis. Findings suggestive of CHF. - An order was given for patient to undergo ultrasound-guided thoracocentesis patient is on apixaban which had been held for his pacemaker placement. Use of incentive spirometry also ordered. Did order serum LDH body fluid LDH, Protein culture as well as cytology given patient previous history of lung malignancy ? 04/10/2025;Approximately 1270 mL of clear yellow fluid was successfully removed, a portion sent to the laboratory for evaluation. Results of diagnostic study pending at the time of discharge 4. Hyperkalemia ? Present on admission potassium level was 5.8. Treated per protocol potassium as of 04/07/2025 is 4.6 5. DARIUSZ superimposed chronic kidney disease stage IV ? Patient kidney function at baseline. Patient being followed by nephrology ? 04/08/2025 patient creatinine down to 1.91 6. Coronary artery disease ? With previous CABG; patient is on guideline directed medical therapy 7. History of non-small cell lung CA involving the right upper lobe ? Patient was treated with radiation therapy currently followed by [facility] oncology and will start 8. Chronic persistent A-fib ? Rate controlled on systemic anticoagulation with apixaban 9. Hypertension ? Blood pressure controlled, home medications continued with dose adjustment as needed 10. Diabetes mellitus type 2 ? Patient was on long-acting insulin with glargine 30 units at bedtime home discontinued also placed on Accu-Cheks AC and at bedtime with sliding scale coverage 11. BPH with lower urinary obstructive symptoms - Patient treated with tamsulosin 12. COPD ? Currently not in exacerbation did continue patient bronchodilator as well as inhaled corticosteroid treatment regimen 13. Dyslipidemia ?Patient is on statin therapy, continued at home dose 14. Chronic degenerative arthritis - Tylenol as needed 15. Peripheral artery disease -with history of left lower extremity ulcer status post aortofemoral bypass graft in 2009 and chronic venous insufficiency. 16 . Anemia ? Secondary to chronic disorder monitoring H&H and transfuse if patient becomes symptomatic or hemoglobin falls below 7 17. DVT prophylaxis ? Patient is on apixaban Time spent in the patient's overall evaluation,decision-making process, review of diagnostic data, adjustment of management, discussion with other providers, nursing nursing and ancillary staff involved in patient's care documentation, 52 Minutes Medications at Discharge Home Medications insulin glargine 100 unit/mL subcutaneous solution 30 unit SQ QHS diabetes 11/19/19 multivitamin (Daily Multi-Vitamin tablet) 1 tab PO DAILY supplement 06/28/20 sitagliptin phosphate 50 mg tablet (Januvia) 50 mg PO DAILY diabetes 11/02/21 pravastatin 20 mg tablet 20 mg PO DAILY hyperlipidemia 01/17/22 cranberry 500 mg capsule 500 mg PO DAILY supplement 07/25/23 docusate sodium 100 mg capsule (Colace) 100 mg PO DAILY PRN stool softn 07/25/23 albuterol sulfate 90 mcg/actuation aerosol inhaler 2 puff inhalation Q4H PRN shortness of breath or wheezing #3 device 10/23/24 umeclidinium 62.5 mcg-vilanterol 25 mcg/actuation powdr for inhalation (Anoro Ellipta) 1 inh inhalation QDAY copd #60 ea 10/23/24 apixaban 5 mg tablet (Eliquis) 2.5 mg (1/2 x 5 mg) PO BID blood thinner 30 days #30 tabs 03/09/25 guaifenesin 1,200 mg tablet, extended release 12 hr 1,200 mg PO Q12H cough 7 days #14 tabs 03/09/25 tamsulosin 0.4 mg capsule 0.4 mg PO DAILY@1730 prostate 30 days #30 caps 03/09/25 metoprolol succinate 25 mg tablet,extended release 24 hr 12.5 mg (1/2 x 25 mg) PO BID blood thinner #90 tabs 04/03/25 clopidogrel 75 mg tablet 75 mg PO DAILY anti platelet 04/05/25 insulin glargine 100 unit/mL (3 mL) subcutaneous pen (Lantus Solostar U-100 Insulin) unit subcut 04/05/25 cefdinir 300 mg capsule 300 mg PO BID #10 caps 04/08/25 furosemide 40 mg tablet (Lasix) 40 mg PO DAILY #60 tabs 04/08/25 guaifenesin 600 mg tablet, extended release 12 hr (Mucinex) 1,200 mg (2 x 600 mg) PO BID #20 tabs 04/08/25 prednisone 20 mg tablet 20 mg PO BID #10 tabs 04/08/25 OXYGEN - Supplemental ([facility] INFORMATIONAL USE ONLY) 04/09/25 Physical Exam Narrative GENERAL: Cooperative HEENT: Atraumatic; normocephalic EYES; Anicteric, Normal Conjunctiva NECK; supple, normal thyroid, RESPIRATORY: Diminished to auscultation CARDIOVASCULAR: Irregular S1 S2, GI: soft, normoactive bowel sounds, : No Renal angle tenderness; EXTREMITIES: No edema, no clubbing, MUSCULOSKELETAL: Left upper extremity immobilized NEURO: Awake; no lateralizing signs. SKIN: Pacemaker site CDI PSYCH; Flat affect Weight / BMI Weight Weight: 75.2 kg Body Mass Index (BMI) 26.7 ABG / Lab / Microbiology Data 04/10/25 05:25 04/10/25 05:25 Laboratory: Laboratory Results - last 24 hr 04/09/25 20:51: POC Glucose 316 H 04/10/25 05:25: WBC 9.0, RBC 3.24 L, Hgb 8.7 L, Hct 28.2 L, MCV 87.0, MCH 26.9 L , MCHC 30.9 L, RDW Std Deviation 53.5 H, RDW Coeff of Reggie 17.1 H, Plt Count 208, MPV 10.0, Immature Gran % (Auto) 0.900, Neut % (Auto) 91.6 H, Lymph % (Auto) 1.9 L, [place] % (Auto) 5.5, Eos % (Auto) 0.0, Baso % (Auto) 0.1, Absolute Neuts (auto) 8.2 H, Absolute Lymphs (auto) 0.17 L, Nucleated RBC % 0.2, Sodium 137, Potassium 4.1, Chloride 92 L, Carbon Dioxide 32.1 H, Anion Gap 12, BUN 76 H, Creatinine 1.71 H, Estim Creat Clear Calc 31.09 L, Est GFR (MDRD) Non-Af 40 L, B UN/Creatinine Ratio 44.4 H, Glucose 244 H, Calcium 8.4, Lactate Dehydrogenase 179 04/10/25 06:16: POC Glucose 236 H 04/10/25 10:30: PT 16.7 H, INR 1.3, APTT 29.5 04/10/25 11:59: POC Glucose 346 H Microbiology: Microbiology 04/06/25 06:47 Mucosa - Nasopharyngeal Respiratory Panel (PCR) - Final 04/05/25 17:05 Mucosa - Nose SARS-CoV-2, Influenza & RSV (PCR) - Final Radiography Diagnostic Testing: Radiology Impression Chest X-Ray 04/09/25 19:57 IMPRESSION: Bilateral pulmonary densities and pleural effusions consistent with CHF. Reading Location: [facility] Chest CT 04/10/25 07:49 IMPRESSION: Coronary artery calcification (CAC) is is present Moderate right pleural effusion with compressive atelectasis in the right lower lobe as well as airspace disease in the right upper lobe with volume loss. Small left pleural effusion with left basilar atelectasis. Findings suggestive of CHF. Reading Location: [facility] Thoracentesis Ultrasound 04/10/25 09:12 IMPRESSION: Successful diagnostic and therapeutic ultrasound-guided right thoracentesis. Laboratory results pending. Reading Location: [facility] D/C Instructions Call your doctor if you observe: Fever of 101 or Higher, Shortness of breath, Fainting spells and Chest pain DC O2, CPAP, BIPAP Needs Home O2 Discharge instructions: Yes Type of respiratory needs?: Oxygen Oxygen frequency: At rest (2) and With Ambulation Oxygen liters per minute during Ambulation: 3 DC home with Oxygen: Yes Home O2 MD Review: I have reviewed the oxygen testing, and the patient qualifies for home oxygen equipment and portability. The patient is mobile in the home and the community. Meaningful Use Info Meaningful Use Meaningful Use Diagnoses (Choose all that apply): CHF CHF MAUREEN/ARB ordered at discharge?: No Reason MAUREEN/ARB not ordered?: Worsening renal function Documented LVEF (%): 55 Discharge Plan Admission Admit Date/Time: 04/05/25 19:55 Attending Provider: Nicola Roman Primary Care Provider: Luis Johnson Consulting Providers: Davon Sraavia; Nicola Lindsey; Deric Lantigua; Issa Looney Discharge Orders/Prescriptions Prescriptions: New prednisone 20 mg tablet 20 mg PO BID Qty: 10 0RF cefdinir 300 mg capsule 300 mg PO BID Qty: 10 0RF guaifenesin [Mucinex] 600 mg tablet extended release 12hr 1,200 mg PO BID Qty: 20 0RF furosemide [Lasix] 40 mg tablet 40 mg PO DAILY Qty: 60 0RF Continued multivitamin [Daily Multi-Vitamin] Tablet 1 tab PO DAILY pravastatin 20 mg tablet 20 mg PO DAILY docusate sodium [Colace] 100 mg capsule 100 mg PO DAILY PRN (Reason: stool softn) cranberry 500 mg capsule 500 mg PO DAILY Rx Instructions: administer with meals albuterol sulfate 90 mcg/actuation HFA aerosol inhaler 2 puff inhalation Q4H PRN (Reason: shortness of breath or wheezing) Qty: 3 3RF Rx Instructions: administer with spacer umeclidinium-vilanterol [Anoro Ellipta] 62.5-25 mcg/actuation blister with device 1 inh inhalation QDAY Qty: 60 3RF insulin glargine 100 UNIT/ML solution 30 unit SQ QHS Januvia 50 mg Tablet 50 mg PO DAILY Eliquis 5 mg Tablet 2.5 mg PO BID 30 Days Qty: 30 3RF guaifenesin 1,200 mg tablet extended release 12hr 1,200 mg PO Q12H 7 Days Qty: 14 6RF tamsulosin 0.4 mg Capsule 0.4 mg PO DAILY@1730 30 Days Qty: 30 2RF clopidogrel 75 mg tablet 75 mg PO DAILY insulin glargine [Lantus Solostar U-100 Insulin] 100 unit/mL (3 mL) insulin pen subcut metoprolol succinate 25 mg tablet extended release 24 hr 12.5 mg PO BID Qty: 90 3RF Discontinued diltiazem HCl 120 mg Capsule,Extended Release 24hr 120 mg PO DAILY 30 Days Qty: 30 2RF No Action (DME) OXYGEN - Supplemental ([facility] INFORMATIONAL USE ONLY) Gas See Rx Instructions .ROUTE Patient Comments: 2 lpm at rest, 3 lpm on exertion, 2 lpm at HS DME company: [employer] per Rx Instructions: As directed Referrals / Follow Up: Carol Sousa [Registered Nurse] - 04/21/25 10:00 am ( FOLLOW UP PACER AND WOUND CHECK ) Luis Johnson DO [Primary Care Provider] - Within 1 Week Disposition Disposition (needs filled in before D/C Order can be placed): Home, Self Care Charges/Coding Visit Charges Inpatient E&M: 68162 Disch Hosp >30min
[2025-04-10 16:31] LABS: Auto B Fluid Analyzer BKGD Ct COUNTS W/IN LIMITS (W/IN LIMITS)
[2025-04-10 16:32] LABS: Appearance/Body Fluid CLEAR; Body Fluid QC Type(s) BF1; Color/Body Fluid YELLOW; Neutrophil (Segs) 6 %; Red Cell Count/Body Fluid 495 /mm3; Source- Body Fluid THORACENTESIS
[2025-04-10 17:01] LABS: Glucose, Body Fluid 274 mg/dL (Not Establ.)
--- NOTE | 2025-04-10 17:20 | NURSING ---
Called in report to Sheila from TCU at 17:20.
[2025-04-10 17:36] LABS: Pathologist Comment/Body Fluid Reviewed
== END 2025-04-10 18:13 | disposition home or self-care (01) | DRG 242 ==
LOC: ED 18:42 → PCU 20:07
PROVIDERS: Internal Medicine; Nurse Practitioner Adult Health; Radiology Nuclear Radiology; Admitting Provider Internal Medicine; Emergency Provider Emergency Medicine; PCP Family Medicine; Visit Provider Internal Medicine
DX: I13.0 Hypertensive heart and chronic kidney disease with heart failure and stage 1 through stage 4 chronic kidney disease, or unspecified chronic kidney disease (principal); I50.33 Acute on chronic diastolic (congestive) heart failure; J96.22 Acute and chronic respiratory failure with hypercapnia; J96.21 Acute and chronic respiratory failure with hypoxia; I44.2 Atrioventricular block, complete; N13.8 Other obstructive and reflux uropathy; J44.1 Chronic obstructive pulmonary disease with (acute) exacerbation; N18.4 Chronic kidney disease, stage 4 (severe); N17.9 Acute kidney failure, unspecified; I48.19 Other persistent atrial fibrillation; D63.8 Anemia in other chronic diseases classified elsewhere; E11.22 Type 2 diabetes mellitus with diabetic chronic kidney disease; M19.90 Unspecified osteoarthritis, unspecified site; E11.51 Type 2 diabetes mellitus with diabetic peripheral angiopathy without gangrene; E78.5 Hyperlipidemia, unspecified; E11.42 Type 2 diabetes mellitus with diabetic polyneuropathy; E87.5 Hyperkalemia; I25.10 Atherosclerotic heart disease of native coronary artery without angina pectoris; Z79.4 Long term (current) use of insulin; E66.3 Overweight; Z68.28 Body mass index [BMI] 28.0-28.9, adult; N40.1 Benign prostatic hyperplasia with lower urinary tract symptoms; Z95.0 Presence of cardiac pacemaker; Z79.899 Other long term (current) drug therapy; Z79.84 Long term (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 of oral hypoglycemic drugs; Z86.16 Personal history of COVID-19; Z79.51 Long term (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 of inhaled steroids; Z79.01 Long term (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 of anticoagulants; Z79.02 Long term (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 of 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/antiplatelets; Z87.891 Personal history of nicotine dependence; Z95.1 Presence of aortocoronary bypass graft
CPT/HCPCS: 32555; 33208; 36415; 36600; 71045; 71046; 71250; 76770; 80048; 80053; 81001; 82570; 82803; 82945; 82962; 83615; 83735; 83880; 84100; 84156; 84157; 84443; 84484; 85025; 85610; 85730; 87070; 87075; 87205; 87631; 87633; 88108; 88305; 88313; 89050; 93005; 94002; 94003; 94640; 94668; 94762; 97161; 97162; 97164; 97166; 97168; 97530; 97535; 97802; 99152; 99153; 99252; 99285; P9047; A4216; C1894; G0463; J1938

== ENCOUNTER 2025-04-10 18:33 | Inpatient (IN) | payer MEDICARE, OTHER, SELFPAY ==
[2025-04-10 19:00] VITALS: BP 133/72; PULSE 110; RESP 18; TEMP 36.5; O2SAT 99
[2025-04-10 20:16] VITALS: PULSE 104; RESP 16; O2SAT 97
--- NOTE | 2025-04-10 20:21 | NURSING ---
Duplicate mucinex order on discharge paper work, clarified with Dr. Olivo via secure text. Mucinex 1200mg BID
--- NOTE | 2025-04-10 20:26 | HP.PCM_ITS ---
HPI - General General Date of Admission: 04/10/25 Date of Service: 04/10/25 Chief Complaint: Here for rehabilitation. HPI Narrative PEDRO HILLMAN, is a 80 Male who presents with followin04/05/2025 [facility] ED Hypotension. Worsening productive cough, copd, history of lung cancer, chronic oxygen 3 liters nasal cannula, oxygen increased to 4 liters. Eliquis for atrial fibrillation, using inhaler at home. Pulsox 88% on 2 liters oxygen, SBP 85, EKG right bundle branch block, HR 100. Atropine given enroute, blood pressure improved. HR 50's slow flutter. Chest X-ray showed vascular congestion, BNP 4000, Lasix 40mg iv given. Insulin/glucose for hyperkalemia 5.8. 04/05/2025 Admit [facility]. Lasix 40mg iv bid, Magnesium, albumin for acute HFpEF. Trend troponin for elevated troponin, probably demand ischemia. Kayexalate given for K 5.8. Ceftriaxone iv, urine culture pending for uti. 04/06/2025 Lasix 40mg iv bid acute HFpEF. Creatinine 2.57. Plavix stopped 2/2 nose bleed. 04/07/2025 Echo EF 55%. Lasix 40mg iv bid, strict I's + O's, fluid restriction, daily weights for acute HFpEF. K 4.6. Nephrology following for acute on chronic kidney failure. 04/08/2025 Daughter in law requested palliative consult. Diuresing well. Creatinine 1.9 improved. 04/09/2025 Lightheaded, SBP 90's, sinus pauses. BB, CCB held, cardiology for tachybrady syndrome. Cardiology recommended pacemaker placement. 04/09/2025 Dr. Sorensen implanted dual chamber pacemaker. 04/10/2025 Dyspnea at rest, CT chest showed right moderate pleural effusion. Lasix restarted. Ultrasound guided thoracentesis right pleural effusion removed 1270mL fluid. 04/10/2025 Admit to TCU with debility, here for rehabilitation, strengthening, prior to discharge home alone. [facility] Medical History (Updated 04/10/25 @ 20:[address] Valdez Olivo MD) Presence of cardiac pacemaker Peripheral arterial disease Other persistent atrial fibrillation New onset atrial flutter COVID Wears hearing aid in both ears Former smoker Coronary artery disease Peripheral vascular occlusive disease BPH (benign prostatic hyperplasia) Chronic kidney disease, stage 3 Atherosclerosis of coronary artery of [place] heart without angina pectoris Hyperlipidemia Lower extremity edema Venous insufficiency Malnutrition Delayed wound healing Osteomyelitis of ankle, left, acute Ulcer of left lower extremity with fat layer exposed Type 2 diabetes mellitus with diabetic polyneuropathy Anemia GERD (gastroesophageal reflux disease) Hypertension Home Medications ?Medication ?Instructions ?Recorded ?Last Taken ?Type insulin glargine 100 unit/mL 30 unit SQ QHS diabetes 0 11/19/19 03/03/25 History subcutaneous solution multivitamin (Daily Multi-Vitamin 1 tab PO DAILY suppl ement 06/28/20 03/03/25 History tablet) sitagliptin phosphate 50 mg tablet 50 mg PO DAILY diab etes 11/02/21 03/03/25 History (Januvia) pravastatin 20 mg tablet 20 mg PO DAILY hyperlipidemi a 01/17/22 03/03/25 History cranberry 500 mg capsule 500 mg PO DAILY supplement 1 09/25/22 03/03/25 History docusate sodium 100 mg capsule 100 mg PO DAILY PRN sto ol softn 07/25/23 Unknown History (Colace) albuterol sulfate 90 mcg/actuation 2 puff inhalation Q 4H PRN 10/23/24 Unknown Rx aerosol inhaler shortness of breath or wheez ing #3 device umeclidinium 62.5 mcg-vilanterol 1 inh inhalation QDAY copd #60 ea 10/23/24 04/08/25 Rx 25 mcg/actuation powdr for inhalation (Anoro Ellipta) apixaban 5 mg tablet (Eliquis) 2.5 mg (1/2 x 5 mg) PO BID blood 03/09/25 Unknown Rx thinner 30 days #30 tabs guaifenesin 1,200 mg tablet, 1,200 mg PO Q12H cough 7 days #14 03/09/25 Unknown Rx extended release 12 hr tabs tamsulosin 0.4 mg capsule 0.4 mg PO DAILY@1730 prostat e 30 03/09/25 Unknown Rx days #30 caps metoprolol succinate 25 mg 12.5 mg (1/2 x 25 mg) PO BI D blood 04/03/25 Unknown Rx tablet,extended release 24 hr thinner #90 tabs clopidogrel 75 mg tablet 75 mg PO DAILY anti platelet 04/05/25 Unknown History insulin glargine 100 unit/mL (3 unit subcut 04/05/25 U nknown History mL) subcutaneous pen (Lantus Solostar U-100 Insulin) cefdinir 300 mg capsule 300 mg PO BID antibiotic #10 caps 04/08/25 Unknown Rx furosemide 40 mg tablet (Lasix) 40 mg PO DAILY diureti c #60 tabs 04/08/25 Unknown Rx guaifenesin 600 mg tablet, 1,200 mg (2 x 600 mg) PO BI D #20 04/08/25 Unknown Rx extended release 12 hr (Mucinex) tabs prednisone 20 mg tablet 20 mg PO BID steroid #10 tab s 04/08/25 Unknown Rx OXYGEN - Supplemental ([facility] 04/09/25 Unknown History INFORMATIONAL USE ONLY) Allergy/AdvReac Type Severity Reaction Status Date / Time ibuprofen Allergy Severe Facial Verified 04/05/25 16:44 swelling (angioedema) Family History Brother Diabetes Father , Age 72 stomach ulcers No problems noted. Mother , Age 71 pancreatitis No problems noted. Sister , hepatitis C No problems noted. Surgical History H/O aorto-femoral bypass (~2009) History of transurethral resection of prostate Presence of aortocoronary bypass graft (~03/2013) Social History (Updated 04/10/25 @ 20:[address] Valdez Olivo MD) household members: none Smoking Status: Former smoker Tobacco: How many years used: 30 how long ago did patient quit smokin years ROS Constitutional Constitutional: Reports weakness; Denies chills, fever(s) or weight gain ENT HEENT: Denies headache(s), nasal congestion or nasal discharge Cardiovascular Cardiovascular: Denies chest pain or palpitations Respiratory/Chest Respiratory/Chest: Denies cough, excessive phlegm production or shortness of breath with exertion Gastrointestinal Gastrointestinal: Denies abdominal pain, nausea or vomiting Genitourinary Genitourinary: Denies dysuria Musculoskeletal Musculoskeletal: Denies joint pain or joint swelling Integumentary Integumentary: Denies rash or wounds Neurologic Neurologic: Denies focal weakness, numbness or tingling Psychiatric Psychiatric: Denies anxiety, auditory hallucinations, depression, homicidal ideation or suicidal ideation Physical Exam Const alert General Appearance: cooperative HEENT normocephalic Eyes PERRL and EOMs intact bilaterally Neck supple, no JVD and no carotid bruits Resp normal respiratory effort, normal air movement and clear to auscultation bilaterally Auscultation: diminished lung sounds right Cardio regular rate and regular rhythm GI normal to inspection, nondistended, normoactive bowel sounds, non-tender and non-distended Extremity normal capillary refill General Extremity: Negative for edema Skin no rashes or lesions noted General Skin Exam: no breakdown Psych affect normal Appearance: appropriate Assessment & Plan Assessment/Plan (1) Debility: (2) Acute respiratory failure with hypoxia: (3) Acute heart failure with preserved ejection fraction (HFpEF): (4) DARIUSZ (acute kidney injury): (5) Tachy-brittany syndrome: (6) Pleural effusion on right: (7) UTI (urinary tract infection): (8) COPD (chronic obstructive pulmonary disease): QUALIFIERS: COPD type: emphysema Emphysema type: centrilobular Qualified Code(s): J43.2 - Centrilobular emphysema (9) History of lung cancer: (10) Atrial fibrillation: (11) Type 2 diabetes mellitus with hyperglycemia: (12) Chronic kidney disease, stage 3b: (13) Hyperlipidemia: QUALIFIERS: Hyperlipidemia type: unspecified Qualified Code(s): E78.5 - Hyperlipidemia, unspecified (14) BPH (benign prostatic hyperplasia): PLAN: Plan 80 year old male with below past medical history hospitalized for acute respiratory failure hypoxia 2/2 acute HFpEF, complicated by urinary tract infection, hyperkalemia, acute kidney injury, elevated troponin, tachybrady syndrome s/p pacemaker implantation, right pleural effusion s/p thoracentesis, admitted to TCU with debility, here for rehabilitation, strengthening, prior to discharge home alone. * Debility - PT/OT. * Pain - Tylenol 1000mg q6 prn pain (1-10). * Bowel - senna/colace 1 tablet bid, Magnesium citrate 300mL daily prn. * Adult immunization - Administer pneumonia vaccine, covid vaccine, flu vaccine as appropriate. * DVT prophylaxis - Eliquis. * COPD - Incruse 1 puff daily, Albuterol 2 puffs q4 prn, Prednisone 20mg bid thru 04/15/2025. * Atrial fibrillation - Metoprolol succinate 12.5mg bid, Eliquis 2.5mg bid. * Urinary tract infection - Cefidnir 300mg bid thru 04/15/2025. * PAOD - Plavix 75mg daily. * Chronic HFpEF - Metoprolol succinate 12.5mg bid, Furosemide 40mg daily. * Congestion - Mucinex 1200mg q12. * Diabetes mellitus II - Glargine 30 units daily, Tradjenta 5mg daily. * Nutrition - MVI 1 tablet daily. * Hyperlipidemia - Pravastatin 20mg qhs. * BPH - Tamsulosin 0.4mg daily. * Tachybrady syndrome - s/p pacemaker placement. * Right pleural effusion - s/p thoracentesis removal 1270mL, follow labs.
--- NOTE | 2025-04-10 21:54 | MDS.RN ---
notified of blood glucose 341 via secure backline text.
[2025-04-10] MEDS: APIXABAN 2.5 MG TABLET (WCH) PO (22:04)
[2025-04-10] MEDS: Insulin Glargine-YFGN 100 UNIT/ML Pen 30 UNIT SC (22:04)
[2025-04-10 22:10] VITALS: BP 142/80; PULSE 104
[2025-04-10] MEDS: Metoprolol(XL)Succ 25 MG Tablet 12.5 MG PO (22:10)
[2025-04-10] MEDS: Senna/Docusate Sodium 1 Tablet PO (22:11)
[2025-04-10 23:00] VITALS: BMI 25.2
--- NOTE | 2025-04-10 23:00 | NURSING ---
Pneumococcal vaccine education provided/offered, patient declines states up to date on vaccinations and does not want to receive during stay on TCU
[2025-04-11 06:48] VITALS: O2SAT 96
[2025-04-11 07:22] LABS: Hematocrit 28.4 % (40-54); Hemoglobin 8.7 g/dL (13.0-16.5); Immature Granulocytes Count 0.060 X10^3/uL (0.0-0.0); Mean Corp Hgb Conc 30.6 g/dL (32-36); Mean Corpuscular Volume 87.1 fL (80-94); Mean Platelet Vol. 10.2 fl (6.2-12.0); NRBC Flagged by Analyzer 0 % (0-5); POSITIVE DIFFERENTIAL YES; Platelet Count 186 K/mm3 (150-450); RBC Distribution Width CV 16.6 % (11.6-14.6); RBC Distribution Width SD 52.9 fl (35.1-43.9); Red Blood Count 3.26 M/mm3 (4.6-6.2); White Blood Count 10.3 K/mm3 (4.4-11.0)
[2025-04-11 07:56] LABS: Anion Gap 10 (5-15); BUN 68 mg/dL (4-19); BUN/Creat Ratio 42.1 RATIO (10-20); Calcium,Total 8.6 mg/dL (7.6-11.0); Carbon Dioxide 33.4 mmol/L (21.0-32.0); Chloride 94 mmol/L (98-108); Estimated Creatinine Clearance 32.82 ml/min (50-250); Glucose 176 mg/dL (70-99); Potassium 4.1 mmol/L (3.3-5.1)
[2025-04-11 09:14] VITALS: BP 137/73; PULSE 110; RESP 17; TEMP 35.8; O2SAT 98
[2025-04-11] MEDS: APIXABAN 2.5 MG TABLET (WCH) PO ×2 (09:19→21:55)
[2025-04-11] MEDS: Umeclidinium Bromide Inhaler 1 PUFF INHALATION (09:20)
[2025-04-11 09:21] VITALS: PULSE 110
[2025-04-11] MEDS: LINAGLIPTIN 5 MG TABLET PO (09:21)
[2025-04-11] MEDS: Metoprolol(XL)Succ 25 MG Tablet 12.5 MG PO (09:21)
--- NOTE | 2025-04-11 15:37 | NURSING ---
Patient requesting medication for sleep. also, HR >100. Patient has pacer placed 04/09. Call placed to Dr. Olivo with update. New order for Melatonin 3mg FROY QHS and to increase Metoprolol XL to 25mg PO BID. VORB.
[2025-04-11] MEDS: Tuberculin,Purif.prot.deriv. 50 TU/ML Vial 0.1 ML ID (17:45)
[2025-04-11] MEDS: Glucerna Shake 120 ML LIQUID PO (18:32)
[2025-04-11] MEDS: Insulin Glargine-YFGN 100 UNIT/ML Pen 30 UNIT SC (21:55)
[2025-04-11] MEDS: MELATONIN 3 MG TABLET PO (21:56)
[2025-04-11 21:58] VITALS: BP 133/64; PULSE 111
[2025-04-11] MEDS: Metoprolol(XL)Succ 25 MG Tablet PO (21:58)
[2025-04-11] MEDS: Senna/Docusate Sodium 1 Tablet PO (21:58)
[2025-04-12 06:12] VITALS: O2SAT 94
--- NOTE | 2025-04-12 06:25 | NURSING ---
PATIENTS BLOOD GLUCOSE WAS 323 @2100, 30 UNITS OF GLARGINE INSULIN ADMINISTERED. THIS AM @0600 PATIENTS BLOOD GLUCOSE WAS 222. PATIENT IS ON PREDNISONE UNTIL 04/15/25, COMMUNICATION NOTE LEFT FOR REGARDING THIS. NOTIFIED RN (YI & GS) WILL CONTINUE TO MONITOR.
[2025-04-12 08:52] VITALS: BP 127/64; PULSE 110; RESP 17; TEMP 35.9; O2SAT 100
[2025-04-12] MEDS: Glucerna Shake 120 ML LIQUID PO ×3 (08:55→16:49)
[2025-04-12] MEDS: Umeclidinium Bromide Inhaler 1 PUFF INHALATION (08:56)
[2025-04-12] MEDS: APIXABAN 2.5 MG TABLET (WCH) PO (08:56)
[2025-04-12 08:57] VITALS: PULSE 110
[2025-04-12] MEDS: LINAGLIPTIN 5 MG TABLET PO (08:57)
[2025-04-12] MEDS: Metoprolol(XL)Succ 25 MG Tablet PO (08:57)
[2025-04-12 15:40] VITALS: BP 146/74; PULSE 115; RESP 22; O2SAT 96
--- NOTE | 2025-04-12 15:53 | RAD_ITS ---
PROCEDURE: CHEST PA AND LATERAL 04/12/2025 REASON FOR EXAM: TACHYCARDIA TECHNIQUE: CHEST PA AND LATERAL COMPARISON: Chest radiograph 820, and chest CT 0 April 10, 2025 FINDINGS: Hardware: Dual-chamber pacer. Sternal wires. Heart: Normal size. Mediastinum: Unremarkable. Lungs: Reticular fibrosis in the left base. Dyiwg-ib-aylgxeut right pleural effusion. Right pneumothorax of 10-15%. Bones: Unremarkable. RAD/Chest PA and Lateral IMPRESSION: 10% right pneumothorax. Right pleural effusion. There is a call out to the ca re team regarding the pneumothorax. Call made at 5: 06 p.m. on April 12, 2025 Reading Location: [facility]
--- NOTE | 2025-04-12 15:54 | NURSING ---
Addendum entered by Maria A Mckeon 04/12/25 18:03: Patient exited the unit at 1755. Patient went to room #9. Verbal report given to Nydia. Addendum entered by Maria A Mckeon 04/12/25 17:40: Call placed to LUPE Carroll per patient request with update. Carly appreciative. Call from ER, room #20 available for patient at this time. Addendum entered by Maria A Mckeon 04/12/25 17:31: Called placed to ER. Report given to Marian PAULSON. Waiting for available bed. Addendum entered by Maria A Mckeon 04/12/25 17:25: CXR resulted. Dr Olivo updated. Per Dr. Olivo send patient to ER. Original Note: Patient's HR elevated ranging from 110s-130s. Patient having intermitted dyspnea at rest SpO2 ranging 99% - 92% on 3L chronic use of O2. Patient feels a flutter in his chest at times when HR is elevated. HR regular on auscultation. Blood pressure 146/74. Patient had previous thoracentesis on 04/10 and 1270 was removed. Previous chest xray showed pleural effusions. Patient currently on Prednisone, Omnicef, and Lasix. Patient's metoprolol was increased on 04/11 to 25mg. Call placed to Dr. Olivo with update. New order received to increase Metoprolol to 50mg PO BID, give first dose now and chest xray. VORB.
[2025-04-12 16:46] VITALS: PULSE 115
[2025-04-12] MEDS: Metoprolol(XL)Succ 50 MG Tablet PO (16:46)
[2025-04-12] MEDS: 0.9% Saline Lock 10 ML Syringe IV (16:51)
--- NOTE | 2025-04-13 07:30 | PCM.DC.SUM ---
Providers Date of Admission: 04/10/25 Primary Care Physician: Dr. Luis Johnson, Consultations 04/11/25 03:25 Consult: Onc/Wound/licensed physical therapy assistant Routine Comment: Reason for Consult:: dark discoloration to top right foot toes x3, burn right thigh Reason For Visit: ACCUTE EXACHERBATION CHF Diagnosis Discharge Diagnosis (1) Debility: Status: Acute Code(s): R53.81 - Other malaise (2) Acute respiratory failure with hypoxia: Status: Acute Code(s): J96.01 - Acute respiratory failure with hypoxia (3) Acute heart failure with preserved ejection fraction (HFpEF): Status: Acute Code(s): I50.31 - Acute diastolic (congestive) heart failure (4) DARUISZ (acute kidney injury): Status: Acute Code(s): N17.9 - Acute kidney failure, unspecified (5) Tachy-brittany syndrome: Status: Acute Code(s): I49.5 - Sick sinus syndrome (6) Pleural effusion on right: Status: Acute Code(s): J90 - Pleural effusion, not elsewhere classified (7) UTI (urinary tract infection): Status: Resolved (8) COPD (chronic obstructive pulmonary disease): Status: Chronic Code(s): J44.9 - Chronic obstructive pulmonary disease, unspecified Qualifiers: COPD type: emphysema Emphysema type: centrilobular Qualified Code(s): J43.2 - Centrilobular emphysema (9) History of lung cancer: Status: Acute Code(s): Z85.118 - Personal history of other malignant neoplasm of bronchus and lung (10) Atrial fibrillation: Status: Acute Code(s): I48.91 - Unspecified atrial fibrillation (11) Type 2 diabetes mellitus with hyperglycemia: Status: Acute Code(s): E11.65 - Type 2 diabetes mellitus with hyperglycemia (12) Chronic kidney disease, stage 3b: Status: Acute Code(s): N18.32 - Chronic kidney disease, stage 3b (13) Hyperlipidemia: Status: Chronic Code(s): E78.5 - Hyperlipidemia, unspecified Qualifiers: Hyperlipidemia type: unspecified Qualified Code(s): E78.5 - Hyperlipidemia, unspecified (14) BPH (benign prostatic hyperplasia): Status: Acute Code(s): N40.0 - Benign prostatic hyperplasia without lower urinary tract symptoms Plan 80 year old male with below past medical history hospitalized for acute respiratory failure hypoxia 2/2 acute HFpEF, complicated by urinary tract infection, hyperkalemia, acute kidney injury, elevated troponin, tachybrady syndrome s/p pacemaker implantation, right pleural effusion s/p thoracentesis, admitted to TCU with debility, here for rehabilitation, strengthening, prior to discharge home alone. Debility - PT/OT. Pain - Tylenol 1000mg q6 prn pain (1-10). Bowel - senna/colace 1 tablet bid, Magnesium citrate 300mL daily prn. Adult immunization - Administer pneumonia vaccine, covid vaccine, flu vaccine as appropriate. DVT prophylaxis - Eliquis. COPD - Incruse 1 puff daily, Albuterol 2 puffs q4 prn, Prednisone 20mg bid thru 04/15/2025. Atrial fibrillation - Metoprolol succinate 12.5mg bid, Eliquis 2.5mg bid. Urinary tract infection - Cefidnir 300mg bid thru 04/15/2025. PAOD - Plavix 75mg daily. Chronic HFpEF - Metoprolol succinate 12.5mg bid, Furosemide 40mg daily. Congestion - Mucinex 1200mg q12. Diabetes mellitus II - Glargine 30 units daily, Tradjenta 5mg daily. Nutrition - MVI 1 tablet daily. Hyperlipidemia - Pravastatin 20mg qhs. BPH - Tamsulosin 0.4mg daily. Tachybrady syndrome - s/p pacemaker placement. Right pleural effusion - s/p thoracentesis removal 1270mL, follow labs. Medications at Discharge Home Medications insulin glargine 100 unit/mL subcutaneous solution 30 unit SQ QHS diabetes 11/19/19 multivitamin (Daily Multi-Vitamin tablet) 1 tab PO DAILY supplement 06/28/20 sitagliptin phosphate 50 mg tablet (Januvia) 50 mg PO DAILY diabetes 11/02/21 pravastatin 20 mg tablet 20 mg PO DAILY hyperlipidemia 01/17/22 cranberry 500 mg capsule 500 mg PO DAILY supplement 07/25/23 docusate sodium 100 mg capsule (Colace) 100 mg PO DAILY PRN stool softn 07/25/23 albuterol sulfate 90 mcg/actuation aerosol inhaler 2 puff inhalation Q4H PRN shortness of breath or wheezing #3 device 10/23/24 umeclidinium 62.5 mcg-vilanterol 25 mcg/actuation powdr for inhalation (Anoro Ellipta) 1 inh inhalation QDAY copd #60 ea 10/23/24 apixaban 5 mg tablet (Eliquis) 2.5 mg (1/2 x 5 mg) PO BID blood thinner 30 days #30 tabs 03/09/25 tamsulosin 0.4 mg capsule 0.4 mg PO DAILY@1730 prostate 30 days #30 caps 03/09/25 metoprolol succinate 25 mg tablet,extended release 24 hr 12.5 mg (1/2 x 25 mg) PO BID blood thinner #90 tabs 04/03/25 clopidogrel 75 mg tablet 75 mg PO DAILY anti platelet 04/05/25 insulin glargine 100 unit/mL (3 mL) subcutaneous pen (Lantus Solostar U-100 Insulin) unit subcut 04/05/25 cefdinir 300 mg capsule 300 mg PO BID antibiotic #10 caps 04/08/25 furosemide 40 mg tablet (Lasix) 40 mg PO DAILY diuretic #60 tabs 04/08/25 guaifenesin 600 mg tablet, extended release 12 hr (Mucinex) 1,200 mg (2 x 600 mg) PO BID #20 tabs 04/08/25 prednisone 20 mg tablet 20 mg PO BID steroid #10 tabs 04/08/25 OXYGEN - Supplemental ([facility] INFORMATIONAL USE ONLY) 04/09/25 Hospital Course Operations None Procedures None Summary of Care Provided Minutes Spent on Discharge: 15 Hospital Course: 80 year old male with below past medical history hospitalized for acute respiratory failure hypoxia 2/2 acute HFpEF, complicated by urinary tract infection, hyperkalemia, acute kidney injury, elevated troponin, tachybrady syndrome s/p pacemaker implantation, right pleural effusion s/p thoracentesis, admitted to TCU with debility, here for rehabilitation, strengthening, prior to discharge home alone. 04/12/2025 Resident with acute respiratory distress, Chest X-ray showed right 10% pneumothorax, recent thoracentesis. Disharge to [facility] ED for evaluation, disposition. Weight / BMI Weight Weight: 70.987 kg Body Mass Index (BMI) 25.2 ABG / Lab / Microbiology Data 04/11/25 06:35 04/11/25 06:35 Laboratory: Laboratory Results - last 24 hr 04/12/25 11:56: POC Glucose 222 H 04/12/25 16:51: POC Glucose 143 H Microbiology: Microbiology 04/11/25 06:08 Nasal Secretion SARS-CoV-2 Antigen (Rapid) - Final Radiography Diagnostic Testing: Radiology Impression Chest X-Ray 04/12/25 15:53 IMPRESSION: 10% right pneumothorax. Right pleural effusion. There is a call out to the care team regarding the pneumothorax. Call made at 5: 06 p.m. on April 12, 2025 Reading [facility] D/C Instructions Discharge Activity: Return to Normal Activity, May Shower and Use Walker Weight Bearing Status: Weight bearing as tolerated Call your doctor if you observe: Fever of 101 or Higher, Inability to urinate, Inability to have a bowel movement, Shortness of breath, Dizziness, Fainting spells, Swelling in the ankles, Chest pain and Uncontrolled pain DC O2, CPAP, BIPAP Needs Home O2 Discharge instructions: No Additional Instructions: Disharge to [facility] ED for evaluation, disposition. Please Follow Up With: MANUEL MORSE Meaningful Use Info Meaningful Use Meaningful Use Diagnoses (Choose all that apply): None applicable Discharge Plan Admission Admit Date/Time: 04/10/25 18:33 Primary Reason for Your Visit: Debility. Attending Provider: Valdez Olivo Chi Primary Care Provider: Luis Johnson Instructions Additional Instructions / Restrictions: Disharge to [facility] ED for evaluation, disposition. Discharge Orders/Prescriptions Prescriptions: No Action multivitamin [Daily Multi-Vitamin] Tablet 1 tab PO DAILY pravastatin 20 mg tablet 20 mg PO DAILY docusate sodium [Colace] 100 mg capsule 100 mg PO DAILY PRN (Reason: stool softn) cranberry 500 mg capsule 500 mg PO DAILY Rx Instructions: administer with meals albuterol sulfate 90 mcg/actuation HFA aerosol inhaler 2 puff inhalation Q4H PRN (Reason: shortness of breath or wheezing) Qty: 3 3RF Rx Instructions: administer with spacer umeclidinium-vilanterol [Anoro Ellipta] 62.5-25 mcg/actuation blister with device 1 inh inhalation QDAY Qty: 60 3RF insulin glargine 100 UNIT/ML solution 30 unit SQ QHS Januvia 50 mg Tablet 50 mg PO DAILY Eliquis 5 mg Tablet 2.5 mg PO BID 30 Days Qty: 30 3RF tamsulosin 0.4 mg Capsule 0.4 mg PO DAILY@1730 30 Days Qty: 30 2RF clopidogrel 75 mg tablet 75 mg PO DAILY insulin glargine [Lantus Solostar U-100 Insulin] 100 unit/mL (3 mL) insulin pen subcut prednisone 20 mg tablet 20 mg PO BID Qty: 10 0RF cefdinir 300 mg capsule 300 mg PO BID Qty: 10 0RF guaifenesin [Mucinex] 600 mg tablet extended release 12hr 1,200 mg PO BID Qty: 20 0RF furosemide [Lasix] 40 mg tablet 40 mg PO DAILY Qty: 60 0RF (DME) OXYGEN - Supplemental ([facility] INFORMATIONAL USE ONLY) Gas See Rx Instructions .ROUTE Patient Comments: 2 lpm at rest, 3 lpm on exertion, 2 lpm at HS DME company: [employer] CM Rx Instructions: As directed metoprolol succinate 25 mg tablet extended release 24 hr 12.5 mg PO BID Qty: 90 3RF Referrals / Follow Up: Luis Johnson DO [Primary Care Provider] - Disposition Disposition (needs filled in before D/C Order can be placed): Acute Care Hospital
--- NOTE | 2025-04-21 14:31 | MDS.RN ---
Information for the MDS was obtained from review of the clinical record, interview of resident, staff, and direct observation of resident?s care.
== END 2025-04-12 17:55 | disposition short-term general hospital (02) | DRG 291 ==
PROVIDERS: Admitting Provider Family Medicine Geriatric Medicine; PCP Family Medicine; Visit Provider Family Medicine Geriatric Medicine
DX: I13.0 Hypertensive heart and chronic kidney disease with heart failure and stage 1 through stage 4 chronic kidney disease, or unspecified chronic kidney disease (principal); J96.01 Acute respiratory failure with hypoxia; I50.33 Acute on chronic diastolic (congestive) heart failure; J91.8 Pleural effusion in other conditions classified elsewhere; J93.9 Pneumothorax, unspecified; I48.19 Other persistent atrial fibrillation; N39.0 Urinary tract infection, site not specified; N18.32 Chronic kidney disease, stage 3b; J43.2 Centrilobular emphysema; E11.65 Type 2 diabetes mellitus with hyperglycemia; E11.51 Type 2 diabetes mellitus with diabetic peripheral angiopathy without gangrene; I49.5 Sick sinus syndrome; I25.10 Atherosclerotic heart disease of native coronary artery without angina pectoris; E11.22 Type 2 diabetes mellitus with diabetic chronic kidney disease; E78.5 Hyperlipidemia, unspecified; Z79.4 Long term (current) use of insulin; Z79.01 Long term (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 of anticoagulants; Z99.81 Dependence on supplemental oxygen; N40.0 Benign prostatic hyperplasia without lower urinary tract symptoms; Z95.0 Presence of cardiac pacemaker; Z87.891 Personal history of nicotine dependence; Z85.118 Personal history of other malignant neoplasm of bronchus and lung; Z79.899 Other long term (current) drug therapy; R06.03 Acute respiratory distress
CPT/HCPCS: 36415; 71046; 80048; 82962; 85025; 87811; 97110; 97162; 97166; 97530; 97802; A4216

== ENCOUNTER 2025-04-12 18:02 | Emergency (ER) | payer MEDICARE, OTHER, SELFPAY ==
[2025-04-12 18:05] VITALS: BP 123/72; PULSE 110; RESP 25; TEMP 36.4; O2SAT 100; BMI 25.4
[2025-04-12 18:09] VITALS: O2SAT 100
--- NOTE | 2025-04-12 18:39 | CT_ITS ---
PROCEDURE: CHEST WITHOUT CONTRAST 04/12/2025 REASON FOR EXAM: PNEUMOTHORAX TECHNIQUE: Chest CT without contrast. Coronal and Sagittal reconstruction series were provided. One or more dose reduction techniques were used (e.g., Automated exposure control, adjustment of the mA and/or kV according to patient size, use of iterative reconstruction technique RADIATION DOSE SUMMARY: CTDlvol: 14.72 mGy DLP: 555.60 mGycm COMPARISON: Chest radiograph earlier today and CT scan from April 10, 2025 FINDINGS: Hardware: Dual-chamber pacer projects over the left upper chest. Sternal wires are present. EKG lead wires project over the chest. Lymph nodes: No adenopathy. Heart and Vasculature: Heart size is normal. Extensive advanced calcific coronary artery disease is seen involving the left main pulmonary artery the left anterior descending oblique marginal branches. Circumflex artery and posterior Lungs and Airways: Airspace consolidation is present in the right upper lobe in the right lower lobe Pleura: Loculated moderate-size right pleural effusion is present. Some of this is nondependent placed in the right lung apex. In the Upper Abdomen: Right apex alongside the mediastinum there is a pocket of air/pneumothorax. Another pocket of air is seen non dependently in the right thoracic base overall possible 15% pneumothorax Bones: No acute or aggressive bony process identified. CT/Chest without Contrast IMPRESSION: Coronary artery calcification (CAC) is advanced, severe Right loculated hydropneumothorax of an estimated 15% of the right thoracic vol ume occupied by air. Some is apical and some is subpulmonic Patches of dense consolidating right pneumonia. Sizable peripheral blebs and h oneycombing in the left mid zone and base. Reading Location[facility]
--- NOTE | 2025-04-12 18:40 | EKG12_ITS ---
Test Reason : SOB Blood Pressure : */* mmHG Vent. Rate : 111 BPM Atrial Rate : 111 BPM P-R Int : 86 ms QRS Dur : 122 ms QT Int : 332 ms P-R-T Axes : -14 15 -39 degrees QTcB Int : 451 ms Sinus tachycardia with short DE Right bundle branch block T wave abnormality, consider inferior ischemia Abnormal ECG Confirmed by CAMILLE STRATTON, SANDRA ([id number]), online editor CODI SEGURA ([id number]) on 04/13/2025 1:10:58 PM Referred By: Confirmed By: SANDRA OBRIEN MD
--- NOTE | 2025-04-12 19:01 | EX.ED.DYSGE1 ---
HPI History of Present Illness Chief Complaint: Shortness of Breath Narrative Narrative: Patient is 80-year-old male with past medical history of peripheral arterial disease, atrial fibrillation on Eliquis, CAD, chronic kidney disease, type 2 diabetes, hypertension, GERD, CHF, type 2 diabetes, COPD chronically on 3 L nasal cannula who presented to the emergency department from upstairs from rehab with the concern for pneumothorax which was seen on chest x-ray. Patient recently had a right thoracentesis on last Sunday also had a pacemaker inserted on of this past week as well. They noted that his heart rate was elevated despite increased metoprolol therefore they obtained a chest x-ray. Patient states that he has no complaints himself at this point in time. [facility] Medical History Presence of cardiac pacemaker Peripheral arterial disease Other persistent atrial fibrillation New onset atrial flutter COVID Wears hearing aid in both ears Former smoker Coronary artery disease Peripheral vascular occlusive disease BPH (benign prostatic hyperplasia) Chronic kidney disease, stage 3 Atherosclerosis of coronary artery of [place] heart without angina pectoris Hyperlipidemia Lower extremity edema Venous insufficiency Malnutrition Delayed wound healing Osteomyelitis of ankle, left, acute Ulcer of left lower extremity with fat layer exposed Type 2 diabetes mellitus with diabetic polyneuropathy Anemia GERD (gastroesophageal reflux disease) Hypertension Home Medications ?Medication ?Instructions ?Recorded ?Last Taken ?Type insulin glargine 100 unit/mL 30 unit SQ QHS diabetes 11/19/19 03/03/25 History subcutaneous solution multivitamin (Daily Multi-Vitamin 1 tab PO DAILY supplement 06/28/20 03/03/25 History tablet) sitagliptin phosphate 50 mg tablet 50 mg PO DAILY diabetes 11/02/21 03/03/25 History (Januvia) pravastatin 20 mg tablet 20 mg PO DAILY hyperlipidemia 01/17/22 03/03/25 History cranberry 500 mg capsule 500 mg PO DAILY supplement 07/25/23 03/03/25 History docusate sodium 100 mg capsule 100 mg PO DAILY PRN stool softn 07/25/23 Unknown History (Colace) albuterol sulfate 90 mcg/actuation 2 puff inhalation Q4H PRN 10/23/24 Unknown Rx aerosol inhaler shortness of breath or wheezing #3 device umeclidinium 62.5 mcg-vilanterol 1 inh inhalation QDAY copd #60 ea 10/23/24 04/08/25 Rx 25 mcg/actuation powdr for inhalation (Anoro Ellipta) apixaban 5 mg tablet (Eliquis) 2.5 mg (1/2 x 5 mg) PO BID blood 03/09/25 Unknown Rx thinner 30 days #30 tabs tamsulosin 0.4 mg capsule 0.4 mg PO DAILY@1730 prostate 30 03/09/25 Unknown Rx days #30 caps metoprolol succinate 25 mg 12.5 mg (1/2 x 25 mg) PO BID blood 04/03/25 Unknown Rx tablet,extended release 24 hr thinner #90 tabs clopidogrel 75 mg tablet 75 mg PO DAILY anti platelet 04/05/25 Unknown History insulin glargine 100 unit/mL (3 unit subcut 04/05/25 Unknown History mL) subcutaneous pen (Lantus Solostar U-100 Insulin) cefdinir 300 mg capsule 300 mg PO BID antibiotic #10 caps 04/08/25 Unknown Rx furosemide 40 mg tablet (Lasix) 40 mg PO DAILY diuretic #60 tabs 04/08/25 Unknown Rx guaifenesin 600 mg tablet, 1,200 mg (2 x 600 mg) PO BID #20 04/08/25 Unknown Rx extended release 12 hr (Mucinex) tabs prednisone 20 mg tablet 20 mg PO BID steroid #10 tabs 04/08/25 Unknown Rx OXYGEN - Supplemental ([facility] 04/09/25 Unknown History INFORMATIONAL USE ONLY) Allergy/AdvReac Type Severity Reaction Status Date / Time ibuprofen Allergy Severe Facial Verified 04/05/25 16:44 swelling (angioedema) Family History Brother Diabetes Father , Age 72 stomach ulcers No problems noted. Mother , Age 71 pancreatitis No problems noted. Sister , hepatitis C No problems noted. Surgical History H/O aorto-femoral bypass (~2009) History of transurethral resection of prostate Presence of aortocoronary bypass graft (~03/2013) Social History household members: none Smoking Status: Former smoker Tobacco: How many years used: 30 how long ago did patient quit smokin years ROS ROS ED ROS Narrative Constitutional: Denies any fevers, chills, headaches Eyes: Denies any changes in vision double vision blurry vision Cardiovascular: Denies chest pain or palpitations Respiratory: Denies coughing wheezing shortness of breath Abdomen: Denies abdominal pain nausea vomit diarrhea : Denies any urinary symptoms Neurological: Denies numbness, weakness, tingling Musculoskeletal: Denies back pain Skin: Denies any rashes or lesions EXAM Physical Exam Narrative Exam Narrative: General: Patient was lying in bed resting comfortably did not appear to be acute distress Head: Atraumatic, normocephalic Eyes: PERRL bilaterally, EOMI bilateral, no conjunctival injection noted Neck: Soft, supple, trachea midline Cardiovascular: Patient tachycardic with a regular rhythm Respiratory: Clear to auscultation bilaterally Abdomen: Soft, nondistended, nontender to palpation Extremities: +5/5 strength noted in the bilateral lower extremities Neurological: Patient following commands knew that he was at [facility] the year is 2024 Skin: Warm, dry, intact no rashes or lesions noted Const Vital Signs: 04/12/25 18:05 04/12/25 18:09 04/12/25 19:46 Temperature 97.5 F L Temperature Source Oral Pulse Rate 110 H Respiratory Rate 25 H Respiratory Effort Normal Non-Labored Respiratory Depth Normal Respiratory Pattern Normal Blood Pressure 123/72 H Blood Pressure Mean 89 Pulse Ox 100 Oxygen Delivery Method Nasal Cannula Nasal Cannula Non-Rebreather Oxygen Flow Rate (L/min) 3 3 15 04/12/25 20:04 04/12/25 22:00 04/12/25 23:03 Temperature 97.8 F Temperature Source Pulse Rate 111 H 110 H 109 H Respiratory Rate 40 H 25 H 21 H Respiratory Effort Respiratory Depth Respiratory Pattern Blood Pressure 141/76 H 134/80 H 142/80 H Blood Pressure Mean 97 98 100 Pulse Ox 100 100 100 Oxygen Delivery Method Non-Rebreather Non-Rebreather Oxygen Flow Rate (L/min) 15 15 MDM MDM MDM Narrative Medical decision making narrative: Patient is a 80-year-old male who presented to the emergency department with a chief complaint of pneumothorax as found on chest x-ray upstairs. On the differential diagnosis includes but not limited to pneumothorax, CHF, pneumonia. Once the workup is obtained reviewed he will be reevaluated. Patient was placed on 15 L nonrebreather. Patient be given 1 L of fluid as he has a history of CHF. Patient's CBC was reviewed which showed white blood count of 13,000, hemoglobin is 9.1, platelet count was noted be 193. Patient sodium normal 138, potassium was 4.3, creatinine 1.43. Patient troponin was 103 with a delta troponin of 98. Patient's EKG reviewed which showed sinus tachycardia with a rate of 111 bpm with NM interval of 86. Patient's proBNP elevated 7022. Patient CT chest was reviewed which showed a right loculated hydropneumothorax of an estimated 15% of the right thoracic volume occupied by air. Some is apical and some is subpulmonic. Patches of dense consolidation right pneumonia sizable peripheral blebs and honeycombing in the left mid zone and base. Patient was given vancomycin and Zosyn at 2216. Patient be given IV fluids. Patient at 10:55 PM remains normal to hypertensive therefore no vasopressors indicated. Will discuss case with hospitalist for admission. Discussed case with hospitalist Dr. Izquierdo she was recommending discussion with general surgery prior to admission. Discussed case with general surgeon Dr. Workman who is recommending transfer given the complex pneumothorax. Discussed case with [facility] physician Dr. Diamond who accept patient for transfer. Patient was notified as well as sons at bedside. All question concerns answered patient will be transferred once bed is available. Lab Data Labs: Laboratory Results - last 24 hr 04/12/25 04/12/25 19:45 22:00 WBC 13.7 H RBC 3.35 L Hgb 9.1 L Hct 29.6 L MCV 88.4 MCH 27.2 MCHC 30.7 L RDW Std Deviation 53.6 H RDW Coeff of Reggie 16.6 H Plt Count 193 MPV 9.9 Immature Gran % (Auto) 0.700 Neut % (Auto) 92.5 H Lymph % (Auto) 2.5 L [place] % (Auto) 4.2 Eos % (Auto) 0.0 Baso % (Auto) 0.1 Absolute Neuts (auto) 12.7 H Absolute Lymphs (auto) 0.34 L Nucleated RBC % 0 Sodium 138 Potassium 4.3 Chloride 93 L Carbon Dioxide 36.5 H Anion Gap 9 BUN 60 H Creatinine 1.43 H Estim Creat Clear Calc 37.18 L Est GFR (MDRD) Non-Af 50 L BUN/Creatinine Ratio 41.9 H Glucose 189 H Calcium 8.7 Troponin T High Sens 103 H* D Troponin T Hi Sens 2 Hr 98 H* NT pro BNP II 7022 H Radiography Diagnostic Testing: Clinical Impression(s) from Imaging Studies Chest CT 04/12/25 18:39 IMPRESSION: Coronary artery calcification (CAC) is advanced, severe Right loculated hydropneumothorax of an estimated 15% of the right thoracic volume occupied by air. Some is apical and some is subpulmonic Patches of dense consolidating right pneumonia. Sizable peripheral blebs and honeycombing in the left mid zone and base. Reading [facility] Discharge Plan Triage Chief Complaint: Shortness of Breath ED Provider: Daniel Brownlee Dx/Rx/DC Orders Clinical Impression: Pneumothorax, right, History of COPD, Pneumonia, Heart failure Prescriptions: No Action multivitamin [Daily Multi-Vitamin] Tablet 1 tab PO DAILY pravastatin 20 mg tablet 20 mg PO DAILY docusate sodium [Colace] 100 mg capsule 100 mg PO DAILY PRN (Reason: stool softn) cranberry 500 mg capsule 500 mg PO DAILY Rx Instructions: administer with meals albuterol sulfate 90 mcg/actuation HFA aerosol inhaler 2 puff inhalation Q4H PRN (Reason: shortness of breath or wheezing) Qty: 3 3RF Rx Instructions: administer with spacer umeclidinium-vilanterol [Anoro Ellipta] 62.5-25 mcg/actuation blister with device 1 inh inhalation QDAY Qty: 60 3RF insulin glargine 100 UNIT/ML solution 30 unit SQ QHS Januvia 50 mg Tablet 50 mg PO DAILY Eliquis 5 mg Tablet 2.5 mg PO BID 30 Days Qty: 30 3RF tamsulosin 0.4 mg Capsule 0.4 mg PO DAILY@1730 30 Days Qty: 30 2RF clopidogrel 75 mg tablet 75 mg PO DAILY insulin glargine [Lantus Solostar U-100 Insulin] 100 unit/mL (3 mL) insulin pen subcut prednisone 20 mg tablet 20 mg PO BID Qty: 10 0RF cefdinir 300 mg capsule 300 mg PO BID Qty: 10 0RF guaifenesin [Mucinex] 600 mg tablet extended release 12hr 1,200 mg PO BID Qty: 20 0RF furosemide [Lasix] 40 mg tablet 40 mg PO DAILY Qty: 60 0RF (DME) OXYGEN - Supplemental ([facility] INFORMATIONAL USE ONLY) Gas See Rx Instructions .ROUTE Patient Comments: 2 lpm at rest, 3 lpm on exertion, 2 lpm at HS DME company: [employer] [facility] Rx Instructions: As directed metoprolol succinate 25 mg tablet extended release 24 hr 12.5 mg PO BID Qty: 90 3RF Primary Care Provider: Luis Johnson Referrals: Luis Johnson DO [Primary Care Provider] - Print Language: Romansh Disposition Disposition: DC/Tx to Another Type of HCF
[2025-04-12 19:53] LABS: Hematocrit 29.6 % (40-54); Hemoglobin 9.1 g/dL (13.0-16.5); Immature Granulocytes Count 0.100 X10^3/uL (0.0-0.0); Mean Corp Hgb Conc 30.7 g/dL (32-36); Mean Corpuscular Volume 88.4 fL (80-94); Mean Platelet Vol. 9.9 fl (6.2-12.0); NRBC Flagged by Analyzer 0 % (0-5); POSITIVE DIFFERENTIAL YES; Platelet Count 193 K/mm3 (150-450); RBC Distribution Width CV 16.6 % (11.6-14.6); RBC Distribution Width SD 53.6 fl (35.1-43.9); Red Blood Count 3.35 M/mm3 (4.6-6.2); White Blood Count 13.7 K/mm3 (4.4-11.0)
--- OUTSIDE RECORDS SUMMARY | 2025-04-12 19:57 | XMS RPT_ITS | CCD ---
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 Tonio Fajardo Primary Care Provider [phone] Dr. Tonio Fajardo Referring Provider Dr. Issa Looney Attending Provider [phone] Tonio Fajardo DO Primary Care Provider Dr. Tyrell Uriarte Attending Provider [phone] Tonio Fajardo Primary Care Provider [phone] Dr. Tonio Fajardo Referring Provider Brittny PLANE RUNNER, PLANE RUNNER-C Lorie Attending Provider Dr. Russ Zamora Attending Provider Renard PLANE RUNNER, PLANE RUNNER-C Bonny E Attending Provider [phone] Renard PLANE RUNNER, PLANE RUNNER-C Bonny E Referring Provider [phone] Renard PLANE RUNNER, PLANE RUNNER-C Bonny E Other Provider Dr. Srini Choi Attending Provider Dr. Srini Choi Referring Provider Dr. rSini Choi Other Provider Dr. Mateo Shahid Attending Provider Dr. Issa Looney Attending Provider Dr. Kenyon Flores Referring Provider Unava ilable Dr. Srini Choi Referring Provider [phone] Tevin Allen Attending Provider [phone] Dr. Tonio Fajardo Primary Care Provider Dr. Tonio Fajardo Referring Provider Dr. Tyrell Uriarte Attending Provider Dr. Issa Looney Attending Provider Dr. Kenyon Flores Referring Provider Unava mp Mart PLANE RUNNER, PLANE RUNNER-C Lorie Attending Provider [phone] Dr. Russ Zamora Attending Provider Renard PLANE RUNNER, PLANE RUNNER-C Bonny E Attending Provider Renard PLANE RUNNER, PLANE RUNNER-C Bonny E Referring Provider Renard PLANE RUNNER, PLANE RUNNER-C Bonny E Other Provider Dr. Srini Choi Attending Provider Dr. Srini Choi Referring Provider Dr. Srini Choi Other Provider Dr. Mateo Shahid Attending Provider Roof PLANE RUNNER, PLANE RUNNER-C Iker Stephens Attending Provider Tonio Fajardo DO A Primary Care Provider JESSIE RODRIGUEZ Referring Unavailable TONIO FAJARDO A Primary Care Unavailable TONIO FAJARDO A Primary Care Unavailable Dr. Tonio Fajardo Primary Care Provider [phone] Dr. Tonio Fajardo Referring Provider Dr. Tonio Fajardo Primary Care Provider [phone] Renard PLANE RUNNER, PLANE RUNNER-C Bonny E Attending Provider [phone] Renard PLANE RUNNER, PLANE RUNNER-C Bonny E Referring Provider Renard PLANE RUNNER, PLANE RUNNER-C Bonny E Other Provider Dr. Tonio Fajardo Referring Provider Dr. Russ Zamora Attending Provider Dr. Tonio Fajardo Primary Care Provider Dr. Srini Choi Attending Provider Dr. Srini Choi Referring Provider Renard PLANE RUNNER, PLANE RUNNER-C Bonny E Attending Provider Renard PLANE RUNNER, PLANE RUNNER-C Bonny E Referring Provider [phone] Renard PLANE RUNNER, PLANE RUNNER-C Bonny E Other Provider Dr. Tonio Fajardo Referring Provider Dr. Russ Zamora Attending Provider Dr. Tonio Fajardo Primary Care Provider Renard PLANE RUNNER, PLANE RUNNER-C Bonny E Attending Provider [phone] Renard PLANE RUNNER, PLANE RUNNER-C Bonny E Referring Provider Renard PLANE RUNNER, PLANE RUNNER-C Bonny E Other Provider Dr. Tonio Fajardo Referring Provider Dr. Russ Zamora Attending Provider Dr. Srini Choi Attending Provider Dr. Tyrell Uriarte Attending Provider Dr. Tonio Fajardo Primary Care Provider Renard PLANE RUNNER, PLANE RUNNER-C Bonny E Attending Provider Renard PLANE RUNNER, PLANE RUNNER-C Bonny E Referring Provider [phone] Renard PLANE RUNNER, PLANE RUNNER-C Bonny E Other Provider [phone] Dr. Tonio Fajardo Primary Care Provider Renard PLANE RUNNER, PLANE RUNNER-C Bonny E Attending Provider Renard PLANE RUNNER, PLANE RUNNER-C Bonny E Referring Provider Renard PLANE RUNNER, PLANE RUNNER-C Bonny E Other Provider [phone] Dr. Tonio Fajardo Primary Care Provider Renard PLANE RUNNER, PLANE RUNNER-C Bonny E Attending Provider [phone] Renard PLANE RUNNER, PLANE RUNNER-C Bonny E Referring Provider [phone] Renard PLANE RUNNER, PLANE RUNNER-C Bonny E Other Provider Dr. Tonio Fajardo Referring Provider Dr. Tonio Fajardo Primary Care Provider Renard PLANE RUNNER, PLANE RUNNER-C Bonny E Attending Provider [phone] Renard PLANE RUNNER, PLANE RUNNER-C Bonny E Referring Provider [phone] Renard PLANE RUNNER, PLANE RUNNER-C Bonny E Other Provider Dr. Tonio Fajardo Primary Care Provider Renard PLANE RUNNER, PLANE RUNNER-C Bonny E Attending Provider [phone] Renard PLANE RUNNER, PLANE RUNNER-C Bonny E Referring Provider Renard PLANE RUNNER, PLANE RUNNER-C Bonny E Other Provider Dr. oTnio Fajardo Primary Care Provider Renard PLANE RUNNER, PLANE RUNNER-C Bonny E Attending Provider [phone] Renard PLANE RUNNER, PLANE RUNNER-C Bonny E Referring Provider [phone] Renard PLANE RUNNER, PLANE RUNNER-C Bonny E Other Provider Dr. Tonio Fajardo Referring Provider Dr. Russ Zamora Attending Provider Dr. Tonio Fajardo Primary Care Provider Renard PLANE RUNNER, PLANE RUNNER-C Bonny E Attending Provider Renard PLANE RUNNER, PLANE RUNNER-C Bonny E Referring Provider [phone] Renard PLANE RUNNER, PLANE RUNNER-C Bonny E Other Provider Dr. Francisco Javier Lozada Attending Provider Dr. Joaquim Suárez Referring Provider Dr. Tonio Fajardo Primary Care Provider Renard PLANE RUNNER, PLANE RUNNER-C Bonny E Attending Provider Renard PLANE RUNNER, PLANE RUNNER-C Bonny E Referring Provider [phone] Renard PLANE RUNNER, PLANE RUNNER-C Bonny E Other Provider Dr. Tonio Fajardo Referring Provider Dr. Russ Zamora Attending Provider Dr. Francisco Javier Lozada Attending Provider Dr. Joaquim Suárez Referring Provider Dr. Tonio Fajardo Primary Care Provider [phone] Brittny PLANE RUNNER, PLANE RUNNER-C Lorie Attending Provider RICKIE Alejandra Attending Provider Dr. Tonio Fajardo Primary Care Provider [phone] Dr. Tonio Fajardo Referring Provider Dr. Issa Looney Attending Provider [phone] Tonio Fajardo Primary Care Provider [phone] Dr. Tonio Fajardo Referring Provider Dr. Russ Zamora Attending Provider Dr. Tyrell Uriarte Attending Provider Tonio Fajardo DO Primary Care Provider Dr. Tonio Fajardo DO Primary Care Provider Jose Armando DPMDr. March Attending Provider Dr. Joaquim Suárez DPM Referring Provider Dr. Tonio Fajardo DO Referring Provider Leslie Alejandra Attending Provider Leslie Alejandra Referring Provider Brittny CAMPUZANO-C, Lorie Attending Provider Brittny PLANE RUNNER-C, Lorie Referring Provider Brittny CAMPUZANO-C, Lorie Other Provider Dr. Tyrell Uriarte DO Attending Provider Scotty , Dr. Elizalde Attending Provider Sera STRATTON, Dr. Solano Attending Provider Sera STRATTON, Dr. Solano Referring Provider Scotty MCGEE, Dr. Elizalde Primary Care Provider [place] , Dr. Milligan Other Provider Scotty MCGEE, Dr. Elizalde Primary Care Provider Scotty MCGEE, Dr. Elizalde Referring Provider Sera STRATTON, Dr. Solano Attending Provider Sera STRATTON, Dr. Solano Referring Provider Don STRATTON, Dr. Perez Emergency Provider [phone] Lindsey DO, Dr. Petersen Admit Provider Unavail able de [place], Dr. Petersen Attending Provider Unav ailable Scotty , Dr. Elizalde Primary Care Provider Lindsey DO, [...] Shadi STRATTON, Dr. Graham Other Provider Michael PLANE RUNNER-C, Iker Stephens Other Provider Corina DAMIAN, Leslie Cruz Other Provider Ariane DAMIAN, Tadeo Other Provider Grzegroz STRATTON, Dr. Leos Other Provider Peter STRATTON, Dr. Amador Attending Provider Jailyn STRATTON, Dr. Dorsey Attending Provider Florencio STRATTON, Dr. Johnson Emergency Provider Scotty DO, Dr. Elizalde Referring Provider ArriagaLeslie Hansen Attending Provider Florencio STRATTON, Dr. Johnson Attending Provider Scotty DO, Dr. Elizalde Attending Provider ArriagaLeslie Hansen Referring Provider Carmelina Parra Attending Provider Unavailable Carmelina Parra Referring Provider Unavailable Scotty DO, Dr. Elizalde Primary Care Provider Don STRATTON, Dr. Perez Emergency Provider de [place], Dr. Petersen Admit Provider Unavail able Lindsey DO, Dr. Petersen Other Provider Unavail able Grzegorz STRATTON, Dr. Leos Attending Provider Dr. Paris Tiwari MD Other Provider Unavailable Marleen STRATTON, Dr. Davis Other Provider Unavailable Tamara STRATTON, Dr. Will Other Provider Peter STRATTON, Dr. Amador Other Provider Ortega STRATTON, Dr. Salazar Other Provider Joelle STRATTON, Dr. Garcia Other Provider Unavailable Aayush STRATTON, Dr. Parsons Other Provider Angela STRATTON, Dr. Anders Other Provider Dr. Willian Glaser MD Other Provider Stephen STRATTON, Dr. Villalba Other Provider Ranye STRATTON, Dr. Najera Other Provider Shadi STRATTON, Dr. Graham Other Provider [facility] PLANE RUNNER-C, Iker Stephens Other Provider Leslie Alejandra Other Provider Tadeo Fink Other Provider Grzegorz STRATTON, Dr. Leos Other Provider Peter STRATTON, Dr. Amador Attending Provider Dr. Willian Glaser MD Attending Provider Dr. Alex Matias MD Attending Provider Florencio STRATTON, Dr. Johnson Emergency Provider Dr. Tonio Fajardo DO Referring Provider Leslie Alejandra Attending Provider Dr. Tonio Fajardo DO Attending Provider [phone] Leslie Alejandra Referring Provider [phone] Carmelina Parra Attending Provider Unavailable Carmelina Parra Referring Provider Unavailable Dr. Ld Hayes DO Emergency Provider Dr. Nicola Lindsey DO Attending Provider Unav ailable Aayush STRATTON, Dr. Parsons Attending Provider Manjit STRATTON, Dr. Mays Other Provider Dr. Nicola Roman MD Attending Provider Unavaila ble Abel STRATTON, Dr. Petersen Other Provider Unavailable Dr. Santos Hsu MD Attending Provider Carol Sousa Attending Provider Unavailable Dr. Valdez Olivo MD, Chi Admit Provider Dr. Valdez Olivo MD, Chi Attending Provider Tonio Fajardo Primary Care Unavailable Carol Sousa Attending Unavailable Tonio Fajardo Referring Unavailable Issa Lonoey Attending Unavailable Tonio Fajardo Primary Care Unavailable Leslie Alejandra Referring Unavail able Marjorie Green Attending Unavailable Tonio Fajardo Primary Care Unavailable Nicola Lindsey Admitting Unavailable Nicola Lindsey Attending Unavailable Nicola Lindsey Consulting Unavailable Scotty, Tonio Primary Care Unavailable Grzegorz, Deric Attending Unavailable Amro, Ahmed Consulting Unavailable Jabri, Ahmad Consulting Unavailable Mostafa, Nicolette Consulting Unavailable Peter, Marjorie Consulting Unavailable Ortega Martin Consulting Unavailable Jose Lai Consulting Unavailable Aayush, Issa Consulting Unavailable Bellori, Dennisk Consulting Unavailable Willian Glaser Consulting Unavailable Orly Mitchell Consulting UnavailReinaldo Lima Consulting Unavailable Santos Hsu Consulting Unavailable Iker Rodriguez NP Consulting Unavailable Leslie Alejandra Consulting Unavail able Tadeo Thakkar Consulting Unavailable Grzegorz, Deric Consulting Unavailable Brittny PLANE RUNNER, Lorie Attending Unavailable Scotty, Tonoi Primary Care Unavailable Scotty, Tonio Referring Unavailable Scotty, Tonio Primary Care Unavailable Leslie Alejandra Attending Unavail able Scotty, Tonio Referring Unavailable Scotty, Tonio Primary Care Unavailable Russ Zamora Attending Unavailable Scotty, Tonio Referring Unavailable Leslie Alejandra Referring Unavail able Scotty, Tonio Primary Care Unavailable Leslie Alejandra Attending Unavail able Willian Glaser Attending Unavailable Peter, Marjorie Attending Unavailable Nicola Lindsey Admitting Unavailable Scotty, Tonio Primary Care Unavailable Manjit, Jayaprakas Consulting Unavailable Nicola Roman Attending Unavailable Nicola Lindsey Consulting Unavailable Grzegorz, Deric Consulting Unavailable Nicola Roman Consulting Unavailable Grzegorz, Deric Attending Unavailable Scotty, Tonio Referring Unavailable Russ Zamora Attending Unavailable Scotty, Tonio Primary Care Unavailable Leslie Alejandra Attending Unavail able Scotty, Tonio Referring Unavailable Scotty, Tonio Primary Care Unavailable Scotty, Tonio Primary Care Unavailable Russ Zamora Referring Unavailable Srini Choi Consulting Unavailable Russ Zamora Attending Unavailable Aayush, Goshen Attending Unavailable Aayush, Issa Consulting Unavailable Joaquim Suárez Referring Unavailable Scotty, Tonio Primary Care Unavailable Joaquim Suárez Attending Unavailable Carmelina Parra Referring Unavailable Carmelina Parra Attending Unavailable Scotty, Tonio Primary Care Unavailable Scotty, Tonio Primary Care Unavailable Geovani, Valdez Chi Admitting Unavailable Geovani, Valdez Chi Attending Unavailable Nicola Lindsey Admitting Unavailable Nicola Lindsey Consulting Unavailable Grzegorz, Deric Attending Unavailable Scotty, Tonio Primary Care Unavailable Amro, Ahmed Consulting Unavailable Jabri, Ahmad Consulting Unavailable Mostafa, Nicolette Consulting Unavailable Peter, Marjorie Consulting Unavailable Martin Vivas Consulting Unavailable Jose Lai Consulting Unavailable Aayush, Goshen Consulting Unavailable Bellori, Farouk Consulting Unavailable Willian Glaser Consulting Unavailable Orly Mitchell Consulting UnavailReinaldo Lima Consulting Unavailable Santos Hsu Consulting Unavailable Iker Rodriguez NP Consulting Unavailable Leslie Alejandra Consulting Unavail able DemCleve weiyler Consulting Unavailable Nicola Lindsey Admitting Unavailable Manjit, Jayaprakas Consulting Unavailable Nicola Roman Attending Unavailable Scotty, Tonio Primary Care Unavailable Nicola Lindsey Consulting Unavailable Grzegorz, Deric Consulting Unavailable Aayush, Issa Consulting Unavailable Leslie Alejandra Attending Unavail able Leslie Alejandra Referring Unavail able Scotty, Tonio Primary Care Unavailable ScottyTonio Attending Unavailable Scotty, Tonio Primary Care Unavailable Scotty, Tonio Primary Care Unavailable Russ Zamora Referring Unavailable Russ Zamora Attending Unavailable Santos Hsu Attending Unavailable Joaquim Suárez Attending Unavailable Joaquim Suárez Referring Unavailable Scotty, Tonio Primary Care Unavailable PrahRuss Referring Unavailable PrahRuss Attending Unavailable Scotty, Tonio Primary Care Unavailable Scotty, Tonio Primary Care Unavailable ScottyTonio Attending Unavailable Scotty, Tonio Referring Unavailable Scotty, Tonio Primary Care Unavailable Alex Matias Attending Unavailable Brittny PLANE RUNNERLorie Attending Unavailable Brittny PLANE RUNNER, Lorie Referring Unavailable Scotty, Tonio Primary Care Unavailable Nicola Lindsey Attending Unavailable Brittny PLANE RUNNER, Lorie Referring Unavailable Scotty, Tonio Primary Care Unavailable Tyrell Uriarte Attending Unavailable Brittny PLANE RUNNER, Lorie Consulting Unavailable Scotty, Tonio Primary Care Unavailable Carol Sousa Attending Unavailable Scotty, Tonio Referring Unavailable Allergies Allergy Classification Reported Allergen(s) Allergy Type Date of Onset Reaction(s) Facility (20 sources) Ibuprofen; 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: [IBUPROFEN] Drug Allergy 2 Shortness of Breath [facility] Work Phone: (1 source) Ibuprofen Drug Allergy [facility] Repository Medications Current Medications Medication Drug Class(es) Dates Sig (Normalized) Sig (Original) cefdinir 300 mg oral capsule (2 sources) Cephalosporin Antibacterial Start: 04-08-2025 cholecalciferol 0.125 mg oral capsule (20 sources) Vitamin D Start: 06-28-2020 take 125 ug by mouth twice daily Cholecalciferol (Vitamin D3) Active 125 MCG PO TWICE A DAY June 28, 2020 1:00am Start: 12-03-2013 End: 11-19-2019 Start: 12-03-2013 End: 11-19-2019 take 5 capsules by mouth [...] 27, 2019 12:36pm take 1 capsule by mo uth once daily cholecalciferol, vitamin D3, (VITAMIN D-3) 10 mcg (400 unit) cap Take 400 Units by mouth once daily. Active Comment on above: Take 400 Units by mo uth once daily. clopidogrel 75 mg oral table t (20 sources) P2Y12 Platelet Inhibitor Start: 04-05-2025 Start: 06-28-2020 End: 03-17-2025 Start: 10-24-2018 End: 11-19-2019 colestipol hydrochloride 1000 mg oral tablet (13 sources) Bile Acid Sequestrant Start: 06-28-2020 colestip ol (COLESTID) 1 gram tablet 03/27/2022 Active Cranberry (15 sources) Non-Standardized Food Allergenic Extract, Non-Standardized Plant Allergenic Extract Start: 07-25-2023 Start: 07-25-2023 take 1 capsule by mo uth once daily at mealtime Cranberry 500 mg capsule Active 500 mg PO DAILY July 25, 2023 1:00am supplement administer with meals Start: 07-25-2023 take 1 capsule by mo uth once daily at mealtime Cranberry 500 mg [...] meals docusate sodium 100 mg oral capsule (18 sources) Start: 07-25-2023 Start: 04-14-2022 take 1 capsule by mo [facility] once daily as needed Docusate Sodium (Colace) 100 mg Capsule Active 100 MG PO DAILY NEEDED April 14, 2022 12:00am fish oil/borage/flax/om3,6,9 1 (OMEGA 3-6-9 COMPLEX ORAL) (5 sources) fish oil/borage/ flax/om3,6,9 1 (OMEGA 3-6-9 COMPLEX ORAL) Take by mouth. Active fish oil/borage/ flax/om3,6,9 1 (OMEGA 3-6-9 COMPLEX ORAL) Take by mouth. 0 Active Comment on above: Take by mouth. Fish,Bora,Flax Oils-Om3,6,9no1 ([place] 3-6-9) 1,200 mg Capsule (8 sources) Start: 11-02-2021 take 1 capsule by mouth twice daily Fish,Bora,Flax Oils-Om3,6,9no1 ([place] 3-6-9) 1,200 mg Capsule Active 1 CAP PO TWICE A DAY November 02, 2021 1:31pm Start: 11-02-2021 take 1 capsule by [facility] twice daily Fish,Bora,Flax Oils-Om3,6,9no1 ([place] 3-6-9) 1,200 mg Capsule Active 1 CAP PO TWICE A DAY November 02, 2021 12:00am furosemide 40 mg oral tablet (2 sources) Loop Diuretic Start: 04-08-2025 glyBURIDE 2.5 mg oral tablet (13 sources) Sulfonylurea Start: 03-21-2017 glyBURIDE (ANTHONY BETA) 2.5 mg tablet Take 2.5 mg by mouth. 03/21/2017 Active Start: 03-21-2017 take 1.25 mg by mout h twice daily Glyburide Active 1.25 MG PO TWICE A DAY March 21, 2017 12:00am Comment on above: Take 2.5 mg by mouth . 12 hr guaiFENesin 600 mg ext ended release oral tablet (16 sources) Start: 04-08-2025 Start: 10-23-2024 End: 03-09-2025 take 1 tablet by mouth every twelve hours Guaifenesin 1,200 mg tablet extended release 12hr Active 1200 mg PO Q12H 14 7 6 March 09, 2025 12:38pm 3 ml insulin glargine 100 un t/ml pen injector (20 sources) Insulin Analog Start: 04-05-2025 Start: 03-26-2022 LANTUS SOLOSTA R U-100 INSULIN 100 unit/mL (3 mL) 03/26/2022 [...] SQ DAILY November 19, 2019 12:00am Start: 08-23-2017 End: 11-19-2019 Start: 08-23-2017 End: 11-19-2019 Insulin Glargine (Lantus [...] Per 180 mL 24 hr metoprolol succinate 2 5 mg extended release oral tablet (20 sources) beta-Adrenergic Josselyn Start: 04-01-2025 End: 04-03-2025 Start: 07-25-2023 End: 03-09-2025 Start: 07-25-2023 End: 03-09-2025 Metoprolol Tartrate 25 mg ta blet Discontinued 12.5 mg PO TWICE A DAY 45 7 June 18, 2024 4:35pm March 09, 2025 12:36pm hypertension Start: 07-25-2023 End: 07-27-2023 take 1 tablet by mouth once daily Metoprolol Tartrate 25 mg tablet Discontinued 25 mg PO DAILY July 25, 2023 1:00am July 27, 2023 2:33pm Start: 11-02-2021 End: 07-19-2022 Start: 11-02-2021 End: 07-19-2022 Metoprolol Tartrate 25 mg Ta blet Discontinued 12.5 mg PO DAILY November 02, 2021 12:00am July 19, 2022 3:26pm Start: 11-02-2021 End: 07-19-2022 take 12.5 mg by mouth once daily Metoprolol Tartrate Discontinued 12.5 MG PO DAILY November 02, 2021 12:00am July 19, 2022 3:26pm Start: 06-28-2020 End: 01-06-2021 Start: 06-28-2020 End: 01-06-2021 take 2 tablets by mouth once daily Metoprolol Succinate 25 mg tablet extended release 24 hr Discontinued 12.5 mg PO DAILY 90 3 August 06, 2020 9:55am January 06, 2021 2:32pm Start: 06-28-2020 End: 01-06-2021 take 12.5 mg by mouth once daily Metoprolol Succinate Discontinued 12.5 MG PO DAILY August 06, 2020 9:55am January 06, 2021 2:32pm Start: 06-18-2013 End: 11-19-2019 Start: 06-18-2013 End: 11-19-2019 Multivitamin (Daily Multi-Vitamin) tablet (20 sources) Start: [...] Take by mouth. pravastatin sodium 20 mg ora l tablet (20 sources) HMG-CoA Reductase Inhibitor Start: 01-11-2022 Start: 12-03-2013 End: 06-27-2019 predniSONE 20 mg oral tablet (2 sources) Start: 04-08-2025 SITagliptin 50 mg oral table t (20 sources) Dipeptidyl Peptidase 4 Inhibitor Start: 11-02-2021 Start: 02-17-2014 End: 04-08-2014 tamsulosin hydrochloride 0.4 mg oral capsule (20 sources) alpha-Adrenergic Josselyn Start: 03-09-2025 Start: 03-21-2017 End: 03-06-2018 Start: 03-21-2017 End: 03-06-2018 Tamsulosin 0.4 MG capsule Di scontinued March 21, 2017 12:00am March 06, 2018 3:46pm Start: 08-25-2013 End: 11-26-2013 7 actuat umeclidinium 0.0625 mg/actuat / vilanterol 0.025 mg/actuat dry powder inhaler (18 sources) Anticholinergic, beta2-Adrenergic Agonist Start: 10-23-2024 Umeclidinium-Vilanterol (Anoro Ellipta) 62.5-25 mcg/actuation blister with device Active 1 NMA INHALATION daily 60 October 23, 2024 1:00am Start: 07-25-2023 End: 02-15-2024 Start: 07-25-2023 End: 02-15-2024 Umeclidinium-Vilanterol (Ano ro [...] 60 3 October 23, 2024 1:00am copd (20 sources) Start: 04-09-2025 Start: 03-09-2025 Start: 10-23-2024 Start: 10-23-2024 End: 03-09-2025 Start: 06-28-2020 Start: 11-19-2019 Start: 06-27-2019 End: 11-19-2019 Start: 03-21-2017 End: 11-19-2019 Start: 12-03-2013 End: 03-21-2017 Completed/Discontinued Medications Medication Drug Class(es) Dates Sig (Normalized) Sig (Original) acetaminophen 325 mg oral tablet (20 sources) Start: 02-07-2014 End: 11-19-2019 [id number] 200 actuat albuterol 0.09 mg/actuat metered dose inhaler (20 sources) beta2-Adrenergic Agonist Start: 10-31-2023 End: 10-23-2024 Start: 10-31-2023 End: 10-23-2024 Albuterol Sulfate 90 mcg/act uation HFA aerosol inhaler Discontinued 2 NMA INHALATION [...] Anticholinergic, beta2-Adrenergic Agonist Start: 06-18-2013 End: 08-25-2013 Start: 06-18-2013 End: 08-25-2013 take 1 mL by inhalation three times daily Ipratropium-Albuterol 3 ML Ampul.Neb Discontinued 3 mL INHALATION THREE TIMES A DAY June 18, 2013 12:00am August 25, 2013 10:01am Start: 06-18-2013 End: 08-25-2013 take 1 mL by inhalation three times daily Ipratropium-Albuterol Discontinued 3 ML INHALATION THREE TIMES A DAY June 18, 2013 12:00am August 25, 2013 10:01am amoxicillin 500 mg oral tablet (7 sources) Penicillin-class Antibacterial Start: 03-15-2025 End: 04-05-2025 amoxicillin 875 mg / clavulanate 125 mg [...] June 08, 2023 11:58am Start: 01-12-2023 End: 06-08-2023 Start: 01-12-2023 End: 01-22-2023 Amoxicillin-Pot Clavulanate 875-125 mg tablet Discontinued 1 {tbl} PO TWICE A DAY 28 14 January 12, 2023 12:00am January 22, 2023 3:27pm Start: 01-12-2023 End: 01-22-2023 take 1 tablet by mouth twice daily Amoxicillin-Pot Clavulanate Discontinued 1 TABLET PO TWICE A DAY 28 14 January 12, 2023 12:00am January 22, 2023 3:27pm Start: 07-25-2022 End: 10-16-2022 Start: 07-25-2022 End: 10-16-2022 Amoxicillin-Pot Clavulanate 875-125 mg tablet Discontinued 1 {tbl} PO Q12H 28 14 0 July 25, 2022 1:00am October 16, 2022 2:32pm Start: 07-25-2022 End: 10-16-2022 take 1 tablet by mouth every twelve hours Amoxicillin-Pot Clavulanate Discontinued 1 TABLET PO Q12H 28 14 July 25, 2022 1:00am October 16, 2022 2:32pm Start: 05-24-2022 End: 07-19-2022 Start: 05-24-2022 End: 07-19-2022 Amoxicillin-Pot Clavulanate 875-125 mg tablet Discontinued 1 {tbl} PO Q12H 28 14 0 May 24, 2022 12:00am July 19, 2022 3:25pm Start: 05-24-2022 End: 07-19-2022 take 1 tablet by mouth every twelve hours Amoxicillin-Pot Clavulanate Discontinued 1 TABLET PO Q12H 28 14 May 24, 2022 12:00am July 19, 2022 3:25pm apixaban 5 mg oral tablet (20 sources) Factor Xa Inhibitor Start: 07-26-2023 End: 03-09-2025 Start: 07-26-2023 End: 03-09-2025 take 1 tablet by mouth twice daily Apixaban (Eliquis) 5 mg tablet Discontinued 5 mg PO TWICE A DAY 180 August 04, 2024 8:56am March 09, 2025 12:35pm atrial fibrillation ascorbic acid 500 mg oral capsule (20 sources) Vitamin C Start: 08-22-2017 End: 08-23-2017 aspirin 81 mg delayed releas e oral tablet (20 sources) Platelet Aggregation Inhibitor, Nonsteroidal Anti-inflammatory Drug Start: 08-22-2017 End: 07-26-2023 Comment on above: Take by mouth. calcium ascorbate 500 mg ora l tablet (20 sources) Start: 12-03-2013 End: 03-21-2017 cephalexin 500 mg oral capsu le (20 sources) Cephalosporin Antibacterial Start: 05-02-2023 End: 06-08-2023 Start: 04-05-2022 End: 04-15-2022 take 1 capsule by mouth three times daily cephALEXin (KEFLEX) 500 mg capsule Indications: Burning with urination Take 1 capsule by mouth three times daily for 10 days. 30 capsule 0 04/05/2022 04/15/2022 Active Comment on above: Take 1 capsule by [facility] three times daily for 10 days. ciprofloxacin 250 mg oral ta blet (20 sources) Quinolone Antimicrobial Start: 08-28-2013 End: 11-26-2013 0.3 ml darbepoetin scott 0.2 mg/ml prefilled syringe (20 sources) Erythropoiesis-stimulating Agent Start: 06-18-2013 End: 08-25-2013 Start: 06-18-2013 End: 08-25-2013 Darbepoetin Scott In Polysorb at (Aranesp (In Polysorbate)) 60 MCG/0.3 ML Ml Discontinued 60 ug SC EVERY WEEK June 18, 2013 12:00am August 25, 2013 10:01am 24 hr dilTIAZem hydrochloride 120 mg extended release oral capsule (8 sources) Calcium Channel Josselyn Start: 03-09-2025 End: 04-08-2025 diphenhydrAMINE hydrochloride 25 mg oral capsule (20 sources) Histamine-1 Receptor Antagonist Start: 12-03-2013 End: 03-21-2017 doxycycline hyclate 100 mg oral capsule (12 sources) Tetracycline-class Drug Start: 04-01-2024 End: 09-25-2024 dutasteride 0.5 mg oral capsule (20 sources) 5-alpha Reductase Inhibitor Start: 08-25-2013 End: 11-26-2013 Fish Oil-Fat Acid Comb.8-Hb137 ([place] 3-6-9 1,200 Mg Softgel) 1,200 MG capsule (20 sources) Start: 12-03-2013 End: 03-21-2017 Fish Oil-Fat Acid Comb.8-Hb137 ([place] 3-6-9 1,200 Mg Softgel) 1,200 MG capsule Discontinued 1000 MG PO TWICE A DAY December 03, 2013 11:07am March 21, 2017 2:47pm Start: 12-03-2013 End: 03-21-2017 Fish Oil-Fat Acid Comb.8-Hb1 37 ([place] 3-6-9 1,200 Mg Softgel) 1,200 MG capsule Discontinued 1000 mg PO TWICE A DAY December 03, 2013 12:00am March 21, 2017 2:47pm Start: 12-03-2013 End: 03-21-2017 Fish Oil-Fat Acid Comb.8-Hb1 37 ([place] 3-6-9 1,200 Mg Softgel) 1,200 MG capsule Discontinued 1000 MG PO TWICE A DAY December 02, 2013 11:00pm March 21, 2017 1:47pm Start: 12-03-2013 End: 03-21-2017 Fish Oil-Fat Acid Comb.8-Hb1 37 ([place] 3-6-9 1,200 Mg Softgel) 1,200 MG capsule [...] 21, 2017 12:00am November 19, 2019 3:48pm Yyleurixxoh-Nqdcduzmj-Mjnuzu er (12 sources) Start: 02-15-2024 End: 09-25-2024 Start: 02-15-2024 End: 09-25-2024 Nvbxtagprol-Lvdcczdgh-Ugbxtu er (Trelegy Ellipta) 200-62.5-25 mcg blister with device Discontinued 1 NMA INHALATION DAILY 3 February 15, 2024 12:00am September 25, 2024 2:02pm Start: 02-15-2024 End: 09-25-2024 Hiqcsloqdxp-Ewoqzgcvc-Itdunr er (Trelegy Ellipta) 200-62.5-25 mcg blister with device Discontinued 1 NMA INHALATION DAILY February 15, 2024 12:00am September 25, 2024 2:02pm gabapentin 100 mg oral capsu le (20 sources) Anti-epileptic Agent Start: 04-08-2014 End: 03-21-2017 heparin sodium, porcine 5000 unt/ml injectable solution (20 sources) Unfractionated Heparin, Anti-coagulant Start: 06-18-2013 End: 06-20-2013 Start: 06-18-2013 End: 06-20-2013 Heparin (Porcine) Discontinu ed 5000 UNITS SC EVERY 8 HOURS June 18, 2013 12:00am June 20, 2013 11:57am 3 ml insulin detemir 100 unt /ml pen injector (20 sources) Insulin Analog Start: 06-18-2013 End: 08-25-2013 Start: 06-18-2013 End: 08-25-2013 Insulin Detemir U-100 (Levem ir Flextouch U100 Insulin) 100 UNITS/ML Flexpen Discontinued 25 U SC AT BEDTIME June 18, 2013 12:00am August 25, 2013 10:01am Start: 06-18-2013 End: 08-25-2013 Insulin Detemir U-100 (Levem ir Flextouch U-100 Insuln) 100 UNITS/ML Flexpen Discontinued 25 UNITS SC AT BEDTIME June 18, 2013 12:00am August 25, 2013 10:01am lactobacillus acidophilus 10 [id number] unt oral capsule (20 sources) Start: 05-24-2022 End: 07-19-2022 Start: 05-24-2022 End: 07-19-2022 take 1 capsule by mouth once daily Lactobacillus Acidophilus (Probiotic Gold Acidophilus) 1 billion cell capsule Discontinued 1000 NMA PO DAILY 0 May 24, 2022 12:00am July 19, 2022 3:27pm levoFLOXacin 250 mg oral tab let (20 sources) Quinolone Antimicrobial Start: 02-16-2020 End: 02-26-2020 linagliptin 5 mg oral tablet (20 sources) Dipeptidyl Peptidase 4 Inhibitor Start: 08-22-2017 End: 10-24-2018 lisinopril 2.5 mg oral table t (20 sources) Angiotensin Converting Enzyme Inhibitor Start: 04-05-2025 End: 04-05-2025 Start: 10-16-2022 End: 10-20-2022 Lisinopril Discontinued MG P O October 16, 2022 1:00am October 20, 2022 10:38am Start: 02-14-2022 End: 03-09-2025 Start: 06-28-2020 End: 11-29-2021 Start: 07-04-2019 End: 11-19-2019 take 1.25 mg by mouth twice daily Lisinopril 2.5 mg tablet Discontinued 1.25 mg PO TWICE A DAY 90 July 04, 2019 10:43am November 19, 2019 3:49pm Start: 07-04-2019 End: 11-19-2019 take 1.25 mg by mouth twice daily Lisinopril Discontinued 1.25 MG PO TWICE A DAY 90 July 04, 2019 10:43am November 19, 2019 3:49pm Start: 07-01-2019 End: 07-04-2019 take 0.125 mg by mouth twice daily Lisinopril 2.5 mg tablet Discontinued 0.125 mg PO TWICE A DAY 90 3 July 01, 2019 5:04pm July 04, 2019 10:44am Start: 07-01-2019 End: 07-04-2019 take 0.125 mg by mouth twice daily Lisinopril Discontinued 0.125 MG PO TWICE A DAY 90 July 01, 2019 5:04pm July 04, 2019 10:44am Start: 10-24-2018 End: 07-01-2019 take 0.125 mg by mouth once daily Lisinopril 2.5 mg tablet Discontinued 0.125 mg PO daily 90 3 June 27, 2019 12:37pm July 01, 2019 5:05pm Start: 10-24-2018 End: 07-01-2019 take 0.125 mg by mouth once daily Lisinopril Discontinued 0.125 MG PO daily 90 June 27, 2019 12:37pm July 01, 2019 5:05pm Start: 08-23-2017 End: 11-19-2019 Start: 02-17-2014 End: 08-23-2017 Start: 02-17-2014 End: 08-23-2017 take 2.5 mg by mouth once daily Lisinopril Discontinued 2.5 MG PO DAILY February 17, 2014 12:00am August 23, 2017 5:32pm lutein 20 mg oral capsule (20 sources) Start: 11-02-2021 End: 10-16-2022 Start: 06-27-2019 End: 11-19-2019 lutein 10 mg tab Take by mouth. [...] 2019 3:50pm mupirocin 0.02 mg/mg topical ointment (20 sources) RNA Synthetase Inhibitor Antibacterial Start: 01-22-2023 End: 06-08-2023 omeprazole 20 mg delayed release oral tablet (20 sources) Proton Pump Inhibitor Start: 06-28-2022 End: 06-28-2022 Start: 06-18-2013 End: 08-25-2013 polyethylene glycol 3350 170 00 mg powder for oral solution (20 sources) Osmotic Laxative Start: 06-18-2013 End: 08-25-2013 potassium chloride 20 meq ex tended release oral tablet (20 sources) Start: 06-18-2013 End: 08-25-2013 Problems Active Problems Problem Classification Problem Date Documented Date Episodic/Chronic Acquired foot deformities (20 sources) Hammer toe; 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: [Other hammer toe(s) (acquired), right foot] 11-24-2020 Chronic Acute and unspecified renal failure (6 sources) Acute renal failure syndrome; 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: [Acute kidney failure, unspecified] Onset: 04-10-2025 04-06-2025 Episodic Cancer of bronchus; lung (20 sources) Malignant [...] heart beat; 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: [Cardiac arrhythmia, unspecified] Onset: 04-03-2025 07-25-2023 Chronic Cardiac dysrhythmias (20 sources) Bradycardia; 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: [Bradycardia, unspecified] 01-06-2021 Episodic Chronic kidney disease (20 sources) Chronic kidney disease stage 3; 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: [Stage 3 chronic kidney disease] Onset: 04-10-2025 08-25-2020 Chronic Chronic kidney disease (5 sources) [...] bone involvement without evidence of necrosis] Chronic Conduction disorders (12 sources) Complete atrioventricular block; 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: [Atrioventricular block, complete] Onset: 04-10-2025 04-08-2025 Chronic Congestive heart failure; nonhypertensive (20 sources) Acute exacerbation of chronic congestive heart failure; 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: [Heart failure, unspecified] Onset: 04-03-2025 03-04-2025 Chronic Coronary atherosclerosis and other heart disease (20 sources) Coronary atherosclerosis; 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: [Atherosclerotic heart disease of [place] coronary artery without angina pectoris] Onset: 04-10-2025 06-28-2020 Chronic Comment on above: CABG x 3 APPIAH-LAD, S VG-PDA, SVG-D1 03/2013 Coronary atherosclerosis and other heart disease (20 [...] Onset: 10-31-2024 Chronic Diabetes mellitus without complication (17 sources) Diabetes mellitus; 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: [Type 2 diabetes [...] unspecified] 12-31-2022 Episodic Fluid and electrolyte disorders (20 sources) Hyperkalemia; 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: [Hyperkalemia] Onset: 04-10-2025 03-04-2025 Episodic Genitourinary symptoms and ill-defined conditions [...] leg] Onset: 04-14-2014 04-14-2014 Chronic Other aftercare (20 sources) Long-term current use of anticoagulant; 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: [lobsterman (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 of anticoagulants] 03-04-2025 Episodic Other aftercare (7 sources) Long-term current use of drug therapy; 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: [FDC (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 of 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/antipl atelets] 03-15-2025 Episodic Other aftercare (2 sources) FDC (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 of anticoagulants; 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: [FDC (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 of anticoagulants] Onset: 04-10-2025 Episodic Other circulatory disease (1 source) Other specified peripheral vascular diseases; 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: [Other specified peripheral vascular diseases] Onset: 07-07-2024 Chronic Other diseases of veins and lymphatics (20 sources) Peripheral venous insufficiency; 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: [Venous insufficiency (chronic) (peripheral)] 04-28-2020 Episodic Other diseases of veins and lymphatics (20 sources) Venous insufficiency (chronic) (peripheral); 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: [Venous (peripheral) insufficiency, unspecified] Episodic Other hematologic conditions (13 sources) Increased serum protein level; 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: [Abnormality [...] breath] 10-09-2022 Episodic Other lower respiratory disease (18 sources) Dyspnea on exertion; 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: [Other forms of dyspnea] 07-25-2023 Episodic Other lower respiratory disease (13 sources) Nodule of lung; 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: [Solitary pulmonary nodule] 10-18-2023 Episodic Comment on above: CT on 10/12/2023 show s new R lower lobe nodule, not active on PET/CT. Other lower respiratory disease (2 sources) Solitary pulmonary nodule; 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: [Solitary pulmonary nodule] 10-18-2023 Episodic Other lower respiratory disease (1 source) Cough; 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: [Acute cough] 04-05-2022 Episodic Other lower respiratory disease (20 sources) Hypoxia; 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: [Hypoxemia] 10-23-2024 Episodic Other lower respiratory disease (9 sources) History of chronic obstructive airway disease; 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: [Personal history of other diseases of the respiratory system] 03-04-2025 Episodic Other lower respiratory disease (6 sources) Respiratory insufficiency; 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: [Other abnormalities of breathing] 04-05-2025 Episodic Other lower respiratory disease (2 sources) Other abnormalities of breathing; 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: [Other abnormalities of breathing] Onset: 04-10-2025 Episodic Other nutritional; endocrine; and metabolic disorders (20 sources) H/O: diabetes mellitus; 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: [Personal history of other endocrine, nutritional and metabolic disease] 12-31-2022 Episodic Other nutritional; endocrine; and metabolic disorders (20 sources) Body mass index 25-29 - overweight; 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: [Overweight] 03-04-2025 Episodic Other nutritional; endocrine; and metabolic disorders (2 sources) Overweight; 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: [Overweight] Onset: 04-10-2025 Episodic Other screening for suspected conditions (not mental disorders or infectious disease) (20 sources) Raised cardiac enzyme or marker; 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: [Other specified abnormal findings of blood chemistry] Onset: 04-10-2025 03-04-2025 Episodic Other upper respiratory disease (7 sources) Anterior epistaxis; 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: [Epistaxis] 03-15-2025 Episodic Other upper respiratory disease (1 source) Epistaxis; 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: [Epistaxis] Onset: 03-19-2025 Episodic Peripheral and visceral atherosclerosis (20 sources) Peripheral vascular disease; 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: [Peripheral vascular disease, unspecified] Onset: 04-03-2025 Chronic Pleurisy; pneumothorax; pulmonary collapse (19 sources) Pleural effusion; 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: [Pleural effusion, not elsewhere classified] Onset: 04-03-2025 03-04-2025 Episodic Residual codes; unclassified (20 sources) Edema of lower extremity; 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: [Localized edema] 05-22-2020 Episodic Residual codes; unclassified (20 sources) Localized edema; 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: [Localized edema] 12-21-2021 Episodic Residual codes; unclassified (20 sources) Localized edema; 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: [Edema] Episodic Respiratory failure; insufficiency; arrest (adult) (7 sources) Chronic hypoxemic respiratory failure; 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: [Chronic [...] THE OFFICE TO SCHEDULE YOUR APPOINTMENT. Unclassified (2 sources) Chronic atrial fibrillation, unspecified; 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: [Chronic atrial fibrillation, unspecified] Onset: 04-10-2025 Unclassified (2 sources) Other persistent atrial fibrillation; 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: [Other persistent atrial fibrillation] Onset: 04-03-2025 Urinary tract infections (20 sources) Urinary tract infectious disease; 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: [Urinary tract infection, site not specified] Onset: 04-03-2025 11-19-2019 Episodic Past or Other Problems Problem Classification Problem Date Documented Da te Episodic/Chronic Open wounds of extremities (1 source) Unspecified open wound, right foot, initial encounter; 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: [Unspecified open wound, right foot, initial encounter] Onset: 07-30-2024 Episodic Other lower respiratory disease (1 source) Other forms of dyspnea; 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: [Other forms of dyspnea] Onset: 10-08-2024 Episodic Results Test Name Value Interpretation Reference Range Facility Basic Metabolic Profile (BMP )on 04-11-2025 BUN Normal 4-19 [facility] Comment on above: Result Comment: Canc elled via OM: Order cancelled - Patient discharged Performed By: #### L 500.2500, L100.0100 ####[facility] [address] [place], [address] BUN/CRE Normal 10-20 [facility] Comment on above: Result Comment: Canc elled via OM: Order cancelled - Patient discharged Performed By: #### L 500.2500, L100.0100 ####[facility] [address] [place], [address] Calcium Normal 7.6-11.0 [facility] Comment on above: Result Comment: Canc elled via OM: Order cancelled - Patient discharged Performed By: #### L 500.2500, L100.0100 ####[facility] [address] [place], [address] CL Normal 98-108 [facility] Comment on above: Result Comment: Canc elled via OM: Order cancelled - Patient discharged Performed By: #### L 500.2500, L100.0100 ####[facility] [address] [place], [address] CO2 Normal 21.0-32.0 [facility] Comment on above: Result Comment: Canc elled via OM: Order cancelled - Patient discharged Performed By: #### L 500.2500, L100.0100 ####[facility] [address] [place], [address] CREAT,SERUM Normal 0.70-1.20 [facility] Comment on above: Result Comment: Canc elled via OM: Order cancelled - Patient discharged Performed By: #### L 500.2500, L100.0100 ####[facility] [address] [place], [address] eGFR Normal >60 [facility] Comment on above: Result Comment: Canc elled via OM: Order cancelled - Patient discharged Performed By: #### L 500.2500, L100.0100 ####[facility] [address] [place], [address] GAP Normal 5-15 [facility] Comment on above: Result Comment: Canc elled via OM: Order cancelled - Patient discharged Performed By: #### L 500.2500, L100.0100 ####[facility] [address] [place], [address] GLU Normal 70-99 [facility] Comment on above: Result Comment: Canc elled via OM: Order cancelled - Patient discharged Performed By: #### L 500.2500, L100.0100 ####[facility] [address] [place], [address] Potassium Normal 3.3-5.1 [facility] Comment on above: Result Comment: Canc elled via OM: Order cancelled - Patient discharged Performed By: #### L 500.2500, L100.0100 ####[facility] [address] [place], [address] Basic Metabolic Profile (BMP) Normal 133-145 [facility] Comment on above: Result Comment: Canc elled via OM: Order cancelled - Patient discharged Performed By: #### L 500.2500, L100.0100 ####[facility] [address] [place], [address] CBC W/Diff, Automatedon 08-2 Absolute Neut Normal 2.0-7.7 [facility] Comment on above: Result Comment: Canc elled via OM: Order cancelled - Patient discharged Performed By: #### L 500.2500, L100.0100 ####[facility] [address] [place], [address] HCT Normal 40-54 [facility] Comment on above: Result Comment: Canc elled via OM: Order cancelled - Patient discharged Performed By: #### L 500.2500, L100.0100 ####[facility] [address] [place], [address] HGB Normal 13.0-16.5 [facility] Comment on above: Result Comment: Canc elled via OM: Order cancelled - Patient discharged Performed By: #### L 500.2500, L100.0100 ####[facility] [address] [place], [address] MCH Normal 27.0-32.0 [facility] Comment on above: Result Comment: Canc elled via OM: Order cancelled - Patient discharged Performed By: #### L 500.2500, L100.0100 ####[facility] [address] [place], [address] MCHC Normal 32-36 [facility] Comment on above: Result Comment: Canc elled via OM: Order cancelled - Patient discharged Performed By: #### L 500.2500, L100.0100 ####[facility] [address] [place], [address] MCV Normal 80-94 [facility] Comment on above: Result Comment: Canc elled via OM: Order cancelled - Patient discharged Performed By: #### L 500.2500, L100.0100 ####[facility] [address] [place], [address] NEUT% Normal 47-70 [facility] Comment on above: Result Comment: Canc elled via OM: Order cancelled - Patient discharged Performed By: #### L 500.2500, L100.0100 ####[facility] [address] [place], [address] PLT Normal 150-450 [facility] Comment on above: Result Comment: Canc elled via OM: Order cancelled - Patient discharged Performed By: #### L 500.2500, L100.0100 ####[facility] [address] [place], [address] RBC Normal 4.6-6.2 [facility] Comment on above: Result Comment: Canc elled via OM: Order cancelled - Patient discharged Performed By: #### L 500.2500, L100.0100 ####[facility] [address] [place], [address] RDW CV Normal 11.6-14.6 [facility] Comment on above: Result Comment: Canc elled via OM: Order cancelled - Patient discharged Performed By: #### L 500.2500, L100.0100 ####[facility] [address] [place], [address] RDW SD Normal 35.1-43.9 [facility] Comment on above: Result Comment: Canc elled via OM: Order cancelled - Patient discharged Performed By: #### L 500.2500, L100.0100 ####[facility] [address] [place], [address] WBC Normal 4.4-11.0 [facility] Comment on above: Result Comment: Canc elled via OM: Order cancelled - Patient discharged Performed By: #### L 500.2500, L100.0100 ####[facility] [address] [place], [address] Absolute lymphocyte countOrd ered By: Nicola Roman on 04-10-2025 Lymphocytes Auto (Unsp spec) [#/Vol] 0.17 10*3/uL Low 0.83-4.51 [facility] Activated partial thrombopla stin time (aPTT) in platelet poor plasma by coagulation aOrdered By: Nicola Marroquin on 04-10-2025 aPTT Coag (PPP) [Time] 29.5 s 24.1-36.2 [facility] Anion gap in Serum or Plasma Ordered By: Nicola Roman on 04-10-2025 Anion gap [Moles/Vol] 12 mmol/L 5-15 [facility] Automated lymphocyte count a s percentage of total leukocytesOrdered By: Nicola Roman on 04-10-2025 Lymphocytes/100 WBC Auto (Unsp spec) 1.9 % Low 19-41 [facility] BUN/creatinine ratioOrdered By: Nicola Roman on 04-10-2025 Urea nitrogen/Creatinine [Mass ratio] 44.4 mg/mg High 10- [facility] Basic Metabolic Profile (BMP )on 04-10-2025 BUN/CRE 44.4 RATIO High - [facility] Comment on above: Performed By: #### L 100.0100, L500.2500 ####[facility] [address] [place], [address] Calcium [Mass/Vol] 8.4 mg/dL Normal 7.6-11.0 [facility] Comment on above: Performed By: #### L 100.0100, L500.2500 ####[facility] [address] [place], [address] Chloride [Moles/Vol] 92 mmol/L Low 98-108 [facility] Comment on above: Performed By: #### L 100.0100, L500.2500 ####[facility] [address] [place], [address] CO2 [Moles/Vol] 32.1 mmol/L High 21.0-32.0 [facility] Comment on above: Performed By: #### L 100.0100, L500.2500 ####[facility] [address] [place], [address] Creatinine [Mass/Vol] 1.71 mg/dL High 0.70-1.20 [facility] Comment on above: Performed By: #### L 100.0100, L500.2500 ####[facility] [address] [place], [address] ECRCL 31.09 ml/min Low 50-250 [facility] Comment on above: Performed By: #### L 100.0100, L500.2500 ####[facility] [address] [place], [address] GAP 12 Normal 5-15 [facility] Comment on above: Performed By: #### L 100.0100, L500.2500 ####[facility] [address] [place], [address] GFR/1.73 sq M.predicted among non-blacks MDRD (S/P/Bld) [Vol rate/Area] 40 mL/min/{1.73_m2} Low >60 [facility] Comment on above: Result Comment: mL/m in/1.73m2 CKD-EPI Creatinine Equation (2020) Performed By: #### L 100.0100, L500.2500 ####[facility] [address] [place], [address] Glucose [Mass/Vol] 244 mg/dL High 70-99 [facility] Comment on above: Performed By: #### L 100.0100, L500.2500 ####[facility] [address] [place], [address] Potassium [Moles/Vol] 4.1 mmol/L Normal 3.3-5.1 [facility] Comment on above: Performed By: #### L 100.0100, L500.2500 ####[facility] [address] [place], [address] Sodium [Moles/Vol] 137 mmol/L Normal 133-145 [facility] Comment on above: Performed By: #### L 100.0100, L500.2500 ####[facility] [address] [place], [address] Urea nitrogen [Mass/Vol] 76 mg/dL High 4-19 [facility] Comment on above: Performed By: #### L 100.0100, L500.2500 ####[facility] [address] [place], [address] Basophil percentageOrdered B y: Nicola Roman on 04-10-2025 Basophils/100 WBC (Bld) 0.1 % 0-1 [facility] Bedside Glucoseon 04-10-2025 FINGERSTICK GLU 327 mg/dL High 74-106 [facility] Comment on above: Result Comment: KODY GEMENT OF PATIENT CARE PER NURSING PROTOCOL Performed By: #### L 501.080 ####[facility] [address] [place], [address] FINGERSTICK GLU 346 mg/dL High 74-106 [facility] Comment on above: Result Comment: KODY GEMENT OF PATIENT CARE PER NURSING PROTOCOL Performed By: #### L 501.080 ####[facility] [address] [place], [address] FINGERSTICK GLU 236 mg/dL High 74-106 [facility] Comment on above: Result Comment: KODY GEMENT OF PATIENT CARE PER NURSING PROTOCOL Performed By: #### L 501.080 ####[facility] [address] [place], [address] Body Fluid Cell Count+Diffon 04-10-2025 PATH COMM/BF Reviewed Normal [facility] [facility] Comment on above: Order Comment: The r eference range and other method performancespecifications have not been established for this bodyfluid. The test must be integrated into the clinicalcontext for interpretation. Result Comment: TRADE EMBALMER MYRANDA INFLAMMATORY CELLS. OCCASIONAL MESOTHELIAL CELLSNOTED. NO MALIGNANT CELLS IDENTIFIED.Ludmila GOMEZ MD 04/10/25 @1730 AMENDED REPORT 04/10/251734 PATH COMM/BF previously reported as: May follow Performed By: #### L 200.0200 ####[facility] [address] [place], [address] Body fluid appearance (nomin al result)Ordered By: Nicola Roman on 04-10-2025 Appearance (Body fld) CLEAR [facility] Body fluid color determinati onOrdered By: Nicola Roman on 04-10-2025 Color (Body fld) YELLOW [facility] Body fluid lactate dehydroge nase measurement (enzymatic activity/volume) by pyruvateOrdered By: Nicola Roman on 04-10-2025 LDH Pyruvate to lactate reaction (Body fld) [Catalytic activity/Vol] 61 Units/L Not Establ. [facility] Body fluid leukocytes count (number/volume)Ordered By: Nicola Roman on 04-10-2025 WBC (Body fld) [#/Vol] 0.128 10*3/uL [facility] Body fluid lymphocytes/100 l eukocytesOrdered By: Nicola Roman on 04-10-2025 Lymphocytes/100 WBC (Body fld) 44 % [facility] Body fluid macrophage countO rdered By: Nicola Roman on 04-10-2025 Macrophages (Body fld) [#/Vol] 41 % [facility] Body fluid mononuclear cell percentageOrdered By: Nicola Roman on 04-10-2025 Mononuclear cells/100 WBC (Body fld) 94.6 % [facility] Body fluid protein measureme nt (mass/volume)Ordered By: Nicola Roman on 04-10-2025 Protein (Body fld) [Mass/Vol] 2.1 g/dL Not Establ. [facility] Body fluid segmented neutrop hils count (number/volume)Ordered By: Nicola Roman on 04-10-2025 Segmented neutrophils (Body fld) [#/Vol] 6 % [facility] Body fluid total cell countO rdered By: Nicola Roman on 04-10-2025 Cells Counted Total (Body fld) [#] 0.154 10^3/ul [facility] CBC W/Diff, Automatedon 03-21 Absolute Lymph 0.17 X10 3/uL Low 0.83-4.51 [facility] Comment on above: Performed By: #### L 100.0100, L500.2500 ####[facility] [address] [place], [address] Absolute Neut 8.2 X10 3/uL High 2.0-7.7 [facility] Comment on above: Performed By: #### L 100.0100, L500.2500 ####[facility] [address] [place], [address] Basophils/100 WBC (Bld) 0.1 % Normal 0-1 [facility] Comment on above: Performed By: #### L 100.0100, L500.2500 ####[facility] [address] [place], [address] Eosinophils/100 WBC (Bld) 0.0 % Normal 0-5 [facility] Comment on above: Performed By: #### L 100.0100, L500.2500 ####[facility] [address] [place], [address] Erythrocyte distribution width (RBC) [Ratio] 17.1 % High 11.6-14.6 [facility] Comment on above: Performed By: #### L 100.0100, L500.2500 ####[facility] [address] [place], [address] Hematocrit (Bld) [Volume fraction] 28.2 % Low 40-54 [facility] Comment on above: Performed By: #### L 100.0100, L500.2500 ####[facility] [address] [place], [address] Hemoglobin (Bld) [Mass/Vol] 8.7 g/dL Low 13.0-16.5 [facility] Comment on above: Performed By: #### L 100.0100, L500.2500 ####[facility] [address] [place], [address] IG% 0.900 Normal 0.0-0.9 [facility] Comment on above: Result Comment: IG% - Immature Granulocytes (promyelocytes, myelocytes andmetamyelocytes) > 1% indicates that a LEFT SHIFT is Present. Performed By: #### L 100.0100, L500.2500 ####[facility] [address] [place], [address] Lymphocytes/100 WBC (Bld) 1.9 % Low 19-41 [facility] Comment on above: Performed By: #### L 100.0100, L500.2500 ####[facility] [address] [place], [address] MCH (RBC) [Entitic mass] 26.9 pg Low 27.0-32.0 [facility] Comment on above: Performed By: #### L 100.0100, L500.2500 ####[facility] [address] [place], [address] MCHC (RBC) [Mass/Vol] 30.9 g/dL Low 32-36 [facility] Comment on above: Performed By: #### L 100.0100, L500.2500 ####[facility] [address] [place], [address] MCV (RBC) [Entitic vol] 87.0 fL Normal 80-94 [facility] Comment on above: Performed By: #### L 100.0100, L500.2500 ####[facility] [address] [place], [address] Monocytes/100 WBC (Bld) 5.5 % Normal 0-10 [facility] Comment on above: Performed By: #### L 100.0100, L500.2500 ####[facility] [address] [place], [address] Neutrophils/100 WBC (Bld) 91.6 % High 47-70 [facility] Comment on above: Performed By: #### L 100.0100, L500.2500 ####[facility] [address] [place], [address] Nucleated RBC (Bld) [#/Vol] 0.2 10*3/uL Normal 0-5 [facility] Comment on above: Performed By: #### L 100.0100, L500.2500 ####[facility] [address] [place], [address] Platelet mean volume (Bld) [Entitic vol] 10.0 fL Normal 6.2-12.0 [facility] Comment on above: Performed By: #### L 100.0100, L500.2500 ####[facility] [address] [place], [address] Platelets (Bld) [#/Vol] 208 10*3/uL Normal 150-450 [facility] Comment on above: Performed By: #### L 100.0100, L500.2500 ####[facility] [address] [place], [address] RBC (Bld) [#/Vol] 3.24 10*6/uL Low 4.6-6.2 [facility] Comment on above: Performed By: #### L 100.0100, L500.2500 ####[facility] [address] [place], [address] RDW SD 53.5 fl High 35.1-43.9 [facility] Comment on above: Performed By: #### L 100.0100, L500.2500 ####[facility] [address] [place], [address] WBC (Bld) [#/Vol] 9.0 10*3/uL Normal 4.4-11.0 [facility] Comment on above: Performed By: #### L 100.0100, L500.2500 ####[facility] [address] [place], [place], [id number] Carbon dioxide, total [Moles /volume] in Central venous bloodOrdered By: Nicola Roman on 04-10-2025 CO2 [Moles/Vol] 32.1 mmol/L High 21.0-32.0 [facility] Chest without Contraston Chest without Contrast Normal [facility] Chloride assayOrdered By: Stephen Roman on 04-10-2025 Chloride [Moles/Vol] 92 mmol/L Low 98-108 [facility] Eosinophil percentageOrdered By: Nicola Roman on 04-10-2025 Eosinophils/100 WBC (Bld) 0.0 % 0-5 [facility] Erythrocyte distribution wid th ratioOrdered By: Nicola Roman on 04-10-2025 Erythrocyte distribution width (RBC) [Ratio] 17.1 % High 11.6-14.6 [facility] Erythrocyte distribution wid th standard deviationOrdered By: Nicola Roman on 04-10-2025 Erythrocyte distribution width (RBC) [Ratio] 53.5 fl High 35.1-43.9 [facility] Glomerular filtration rate ( GFR) estimation/1.73 sq m using serum, plasma, or whole bOrdered By: Nicola Roman on 04-10-2025 GFR/1.73 sq M.predicted among non-blacks MDRD (S/P/Bld) [Vol rate/Area] 40 mL/min/{1.73_m2} Low >60 [facility] deOrdered By: Nicola Roman on 04-10-2025 Glucose [Mass/Vol] 327 mg/dL High 74-106 [facility] Glucose, Body Fluidon 2024 GLUC, BODY FLD 274 mg/dL Normal Not Establ. [facility] Comment on above: Performed By: #### L 503.0100, L503.0300, L504.0250 ####[facility] [address] [place], [address] Hematocrit Auto (Bld) [Volum e fraction]Ordered By: Nicola Roman on 04-10-2025 Hematocrit (Bld) [Volume fraction] 28.2 % Low 40-54 [facility] Hemoglobin measurementOrdere d By: Nicola Roman on 04-10-2025 Hemoglobin (Bld) [Mass/Vol] 8.7 g/dL Low 13.0-16.5 [facility] Immature granulocytes/100 WB C Auto (Bld)Ordered By: Nicola Roman on 04-10-2025 Immature granulocytes/100 WBC (Bld) 0.900 % 0.0-0.9 [facility] LDHon 04-10-2025 LDH 179 U/L Normal 87-241 [facility] Comment on above: Order Comment: FG1 3 O Performed By: #### L 504.2610 ####[facility] [address] [place], [address] LDH,Body Fluidon 04-10-2025 LDH,BF 61 Units/L Normal Not Establ. [facility] Comment on above: Performed By: #### L 503.0100, L503.0300, L504.0250 ####[facility] [address] [place], [address] MCV (mean corpuscular volume ) determinationOrdered By: Nicola Roman on 04-10-2025 MCV (RBC) [Entitic vol] 87.0 fL 80-94 [facility] Mean corpuscular hemoglobin (MCH) determinationOrdered By: Nicola Roman on 04-10-2025 MCH (RBC) [Entitic mass] 26.9 pg Low 27.0-32.0 [facility] Monocyte detectionOrdered By : Nicola Roman on 04-10-2025 Monocytes/100 WBC (Bld) 9 % [facility] Monocyte percentageOrdered B y: Nicola Roman on 04-10-2025 Monocytes/100 WBC (Bld) 5.5 % 0-10 [facility] Neutrophil percentageOrdered By: Nicola Roman on 04-10-2025 Neutrophils/100 WBC (Bld) 91.6 % High 47-70 [facility] No Panel InformationOrdered By: Nicola Roman on 04-10-2025 495 /mm3 [facility] SEE COMMENT [facility] Pacemaker Checkon 04-10-2025 Pacemaker Check Normal [facility] Partial Thromboplast Timeon 04-10-2025 aPTT Coag (Bld) [Time] 29.5 s Normal 24.1-36.2 [facility] Comment on above: Performed By: #### L 300.3900, L300.4310 ####[facility] [address] [place], [address] Pathologist interpretation o f Body fluid testsOrdered By: Nicola Roman on 04-10-2025 Pathologist interpretation (Body fld) [Interp] Reviewed [facility] Platelet countOrdered By: Stephen Roman on 04-10-2025 Platelets (Bld) [#/Vol] 208 10*3/uL 150-450 [facility] Potassium measurement (mass/ volume)Ordered By: Nicola Roman on 04-10-2025 Potassium (Unsp spec) [Mass/Vol] 4.1 mmol/L 3.3-5.1 [facility] Protein, Body Fluidon 2024 Protein [Mass/Vol] 2.1 g/dL Normal Not Establ. [facility] Comment on above: Performed By: #### L 503.0100, L503.0300, L504.0250 ####[facility] [address] [place], [address] Prothrombin Time w/INRon INR Coag (PPP) [Relative time] 1.3 {INR} Normal [facility] Comment on above: Performed By: #### L 300.3900, L300.4310 ####[facility] [address] [place], [address] PT Coag (PPP) [Time] 16.7 s High 11.7-14.9 [facility] Comment on above: Performed By: #### L 300.3900, L300.4310 ####[facility] [address] [place], [address] Prothrombin timeOrdered By: Nicola Marroquin on 04-10-2025 PT Coag (PPP) [Time] 16.7 s High 11.7-14.9 [facility] RBC Auto (Bld) [#/Vol]Ordere d By: Nicola Roman on 04-10-2025 RBC (Bld) [#/Vol] 3.24 10*6/uL Low 4.6-6.2 [facility] Serum creatinine measurement (mass/volume)Ordered By: Nicola Roman on 04-10-2025 Creatinine [Mass/Vol] 1.71 mg/dL High 0.70-1.20 [facility] Serum glucose measurement (m ass/volume)Ordered By: Nicola Roman on 04-10-2025 Glucose [Mass/Vol] 244 mg/dL High 70-99 [facility] Serum or plasma calcium kingsley urement (mass/volume)Ordered By: Nicola Roman on 04-10-2025 Calcium [Mass/Vol] 8.4 mg/dL 7.6-11.0 [facility] Serum or plasma urea nitroge n measurement (mass/volume)Ordered By: Nicola Roman on 04-10-2025 Urea nitrogen [Mass/Vol] 76 mg/dL High 4-19 [facility] Sodium levelOrdered By: Jaspal Roman on 04-10-2025 Sodium [Moles/Vol] 137 mmol/L 133-145 [facility] Specimen source identificati on of body fluidOrdered By: Nicola Roman on 04-10-2025 Specimen source Nom (Body fld) THORACENTESIS [facility] Thoracentesis W USon 025 Thoracentesis W US Normal [facility] White blood cell (WBC) count Ordered By: Nicola Roman on 04-10-2025 WBC (Bld) [#/Vol] 9.0 10*3/uL 4.4-11.0 [facility] 12 Lead EKGon 04-09-2025 12 Lead EKG Normal [facility] Basic Metabolic Profile (BMP )on 04-09-2025 BUN/CRE 37.7 RATIO High 10-20 [facility] Comment on above: Performed By: #### L 100.0100, L500.2500, L501.2300, L501.5200 ####[facility] [address] [place], [address] Calcium [Mass/Vol] 8.4 mg/dL Normal 7.6-11.0 [facility] Comment on above: Performed By: #### L 100.0100, L500.2500, L501.2300, L501.5200 ####[facility] [address] [place], [address] Chloride [Moles/Vol] 92 mmol/L Low 98-108 [facility] Comment on above: Performed By: #### L 100.0100, L500.2500, L501.2300, L501.5200 ####[facility] [address] [place], [address] CO2 [Moles/Vol] 31.9 mmol/L Normal 21.0-32.0 [facility] Comment on above: Performed By: #### L 100.0100, L500.2500, L501.2300, L501.5200 ####[facility] [address] [place], [address] Creatinine [Mass/Vol] 1.95 mg/dL High 0.70-1.20 [facility] Comment on above: Performed By: #### L 100.0100, L500.2500, L501.2300, L501.5200 ####[facility] [address] [place], [address] ECRCL 27.26 ml/min Low 50-250 [facility] Comment on above: Performed By: #### L 100.0100, L500.2500, L501.2300, L501.5200 ####[facility] [address] [place], [address] GAP 12 Normal 5-15 [facility] Comment on above: Performed By: #### L 100.0100, L500.2500, L501.2300, L501.5200 ####[facility] [address] [place], [address] GFR/1.73 sq M.predicted among non-blacks MDRD (S/P/Bld) [Vol rate/Area] 34 mL/min/{1.73_m2} Low >60 [facility] Comment on above: Result Comment: mL/m in/1.73m2 CKD-EPI Creatinine Equation (2020) Performed By: #### L 100.0100, L500.2500, L501.2300, L501.5200 ####[facility] [address] [place], [address] Glucose [Mass/Vol] 232 mg/dL High 70-99 [facility] Comment on above: Performed By: #### L 100.0100, L500.2500, L501.2300, L501.5200 ####[facility] [address] [place], [address] Potassium [Moles/Vol] 3.9 mmol/L Normal 3.3-5.1 [facility] Comment on above: Performed By: #### L 100.0100, L500.2500, L501.2300, L501.5200 ####[facility] [address] [place], [address] Sodium [Moles/Vol] 135 mmol/L Normal 133-145 [facility] Comment on above: Performed By: #### L 100.0100, L500.2500, L501.2300, L501.5200 ####[facility] [address] [place], [address] Urea nitrogen [Mass/Vol] 74 mg/dL High 4-19 [facility] Comment on above: Performed By: #### L 100.0100, L500.2500, L501.2300, L501.5200 ####[facility] [address] [place], [address] Bedside Glucoseon 04-09-2025 FINGERSTICK GLU 316 mg/dL High 74-106 [facility] Comment on above: Result Comment: KODY GEMENT OF PATIENT CARE PER NURSING PROTOCOL Performed By: #### L 501.080 ####[facility] [address] [place], [address] FINGERSTICK GLU 209 mg/dL High 74-106 [facility] Comment on above: Result Comment: KODY GEMENT OF PATIENT CARE PER NURSING PROTOCOL Performed By: #### L 501.080 ####[facility] [address] [place], [address] FINGERSTICK GLU 273 mg/dL High 74-106 [facility] Comment on above: Result Comment: KODY GEMENT OF PATIENT CARE PER NURSING PROTOCOL Performed By: #### L 501.080 ####[facility] [address] [place], [address] CBC W/Diff, Automatedon 08- Absolute Lymph 0.19 X10 3/uL Low 0.83-4.51 [facility] Comment on above: Performed By: #### L 100.0100, L500.2500, L501.2300, L501.5200 ####[facility] [address] [place], [address] Absolute Neut 6.3 X10 3/uL Normal 2.0-7.7 [facility] Comment on above: Performed By: #### L 100.0100, L500.2500, L501.2300, L501.5200 ####[facility] [address] [place], [address] Basophils/100 WBC (Bld) 0.1 % Normal 0-1 [facility] Comment on above: Performed By: #### L 100.0100, L500.2500, L501.2300, L501.5200 ####[facility] [address] [place], [address] Eosinophils/100 WBC (Bld) 0.0 % Normal 0-5 [facility] Comment on above: Performed By: #### L 100.0100, L500.2500, L501.2300, L501.5200 ####[facility] [address] [place], [address] Erythrocyte distribution width (RBC) [Ratio] 16.9 % High 11.6-14.6 [facility] Comment on above: Performed By: #### L 100.0100, L500.2500, L501.2300, L501.5200 ####[facility] [address] [place], [address] Hematocrit (Bld) [Volume fraction] 27.7 % Low 40-54 [facility] Comment on above: Performed By: #### L 100.0100, L500.2500, L501.2300, L501.5200 ####[facility] [address] [place], [address] Hemoglobin (Bld) [Mass/Vol] 8.6 g/dL Low 13.0-16.5 [facility] Comment on above: Performed By: #### L 100.0100, L500.2500, L501.2300, L501.5200 ####[facility] [address] [place], [address] IG% 0.600 Normal 0.0-0.9 [facility] Comment on above: Result Comment: IG% - Immature Granulocytes (promyelocytes, myelocytes andmetamyelocytes) > 1% indicates that a LEFT SHIFT is Present. Performed By: #### L 100.0100, L500.2500, L501.2300, L501.5200 ####[facility] [address] [place], [address] Lymphocytes/100 WBC (Bld) 2.8 % Low 19-41 [facility] Comment on above: Performed By: #### L 100.0100, L500.2500, L501.2300, L501.5200 ####[facility] [address] [place], [address] MCH (RBC) [Entitic mass] 27.0 pg Normal 27.0-32.0 [facility] Comment on above: Performed By: #### L 100.0100, L500.2500, L501.2300, L501.5200 ####[facility] [address] [place], [address] MCHC (RBC) [Mass/Vol] 31.0 g/dL Low 32-36 [facility] Comment on above: Performed By: #### L 100.0100, L500.2500, L501.2300, L501.5200 ####[facility] [address] [place], [address] MCV (RBC) [Entitic vol] 87.1 fL Normal 80-94 [facility] Comment on above: Performed By: #### L 100.0100, L500.2500, L501.2300, L501.5200 ####[facility] [address] [place], [address] Monocytes/100 WBC (Bld) 4.7 % Normal 0-10 [facility] Comment on above: Performed By: #### L 100.0100, L500.2500, L501.2300, L501.5200 ####[facility] [address] [place], [address] Neutrophils/100 WBC (Bld) 91.8 % High 47-70 [facility] Comment on above: Performed By: #### L 100.0100, L500.2500, L501.2300, L501.5200 ####[facility] [address] [place], [address] Nucleated RBC (Bld) [#/Vol] 0.3 10*3/uL Normal 0-5 [facility] Comment on above: Performed By: #### L 100.0100, L500.2500, L501.2300, L501.5200 ####[facility] [address] [place], [address] Platelet mean volume (Bld) [Entitic vol] 10.1 fL Normal 6.2-12.0 [facility] Comment on above: Performed By: #### L 100.0100, L500.2500, L501.2300, L501.5200 ####[facility] [address] [place], [address] Platelets (Bld) [#/Vol] 203 10*3/uL Normal 150-450 [facility] Comment on above: Performed By: #### L 100.0100, L500.2500, L501.2300, L501.5200 ####[facility] [address] [place], [address] RBC (Bld) [#/Vol] 3.18 10*6/uL Low 4.6-6.2 [facility] Comment on above: Performed By: #### L 100.0100, L500.2500, L501.2300, L501.5200 ####[facility] [address] [place], [address] RDW SD 53.1 fl High 35.1-43.9 [facility] Comment on above: Performed By: #### L 100.0100, L500.2500, L501.2300, L501.5200 ####[facility] [address] [place], [address] WBC (Bld) [#/Vol] 6.9 10*3/uL Normal 4.4-11.0 [facility] Comment on above: Performed By: #### L 100.0100, L500.2500, L501.2300, L501.5200 ####[facility] [address] [place], [address] CVS/PACEMAKERon 04-09-2025 CVS/PACEMAKER Normal [facility] Chest 1 View (Portable)on Chest 1 View (Portable) Normal [facility] Electrocardiogram reportOrde red By: Orly Mitchell on 04-09-2025 EKG study [facility] Work Phone: Magnesiumon 04-09-2025 Magnesium [Mass/Vol] 2.2 mg/dL Normal 1.5-2.2 [facility] Comment on above: Performed By: #### L 100.0100, L500.2500, L501.2300, L501.5200 ####[facility] [address] [place], [address] Magnesium measurement (mass/ volume)Ordered By: Nicola Roman on 04-09-2025 Magnesium (Unsp spec) [Mass/Vol] 2.2 mg/dL 1.5-2.2 [facility] Phosphoruson 04-09-2025 Phosphate [Mass/Vol] 3.9 mg/dL Normal 2.7-4.5 [facility] Comment on above: Performed By: #### L 100.0100, L500.2500, L501.2300, L501.5200 ####[facility] [address] [place], [address] Basic Metabolic Profile (BMP )on 04-08-2025 BUN/CRE 33.8 RATIO High 10-20 [facility] Comment on above: Performed By: #### L 500.2500, L100.0100 ####[facility] [address] [place], [address] Calcium [Mass/Vol] 8.6 mg/dL Normal 7.6-11.0 [facility] Comment on above: Performed By: #### L 500.2500, L100.0100 ####[facility] [address] [place], [address] Chloride [Moles/Vol] 95 mmol/L Low 98-108 [facility] Comment on above: Performed By: #### L 500.2500, L100.0100 ####[facility] [address] [place], [address] CO2 [Moles/Vol] 32.0 mmol/L Normal 21.0-32.0 [facility] Comment on above: Performed By: #### L 500.2500, L100.0100 ####[facility] [facility] [address] [place], [address] Creatinine [Mass/Vol] 1.91 mg/dL High 0.70-1.20 [facility] Comment on above: Performed By: #### L 500.2500, L100.0100 ####[facility] [address] [place], [address] ECRCL 27.84 ml/min Low 50-250 [facility] Comment on above: Performed By: #### L 500.2500, L100.0100 ####[facility] [address] [place], [address] GAP 11 Normal 5-15 [facility] Comment on above: Performed By: #### L 500.2500, L100.0100 ####[facility] [address] [place], [address] GFR/1.73 sq M.predicted among non-blacks MDRD (S/P/Bld) [Vol rate/Area] 35 mL/min/{1.73_m2} Low >60 [facility] Comment on above: Result Comment: mL/m in/1.73m2 CKD-EPI Creatinine Equation (2020) Performed By: #### L 500.2500, L100.0100 ####[facility] [address] [place], [address] Glucose [Mass/Vol] 240 mg/dL High 70-99 [facility] Comment on above: Performed By: #### L 500.2500, L100.0100 ####[facility] [address] [place], [address] Potassium [Moles/Vol] 4.0 mmol/L Normal 3.3-5.1 [facility] Comment on above: Performed By: #### L 500.2500, L100.0100 ####[facility] [address] [place], [address] Sodium [Moles/Vol] 138 mmol/L Normal 133-145 [facility] Comment on above: Performed By: #### L 500.2500, L100.0100 ####[facility] [address] [place], [address] Urea nitrogen [Mass/Vol] 65 mg/dL High 4-19 [facility] Comment on above: Performed By: #### L 500.2500, L100.0100 ####[facility] [address] [place], [address] Bedside Glucoseon 04-08-2025 FINGERSTICK GLU 216 mg/dL High 74-106 [facility] Comment on above: Result Comment: KODY GEMENT OF PATIENT CARE PER NURSING PROTOCOL Performed By: #### L 501.080 ####[facility] [address] [place], [address] FINGERSTICK GLU 270 mg/dL High 74-106 [facility] Comment on above: Result Comment: KODY GEMENT OF PATIENT CARE PER NURSING PROTOCOL Performed By: #### L 501.080 ####[facility] [address] [place], [address] FINGERSTICK GLU 199 mg/dL High 74-106 [facility] Comment on above: Result Comment: KODY GEMENT OF PATIENT CARE PER NURSING PROTOCOL Performed By: #### L 501.080 ####[facility] [address] [place], [address] CBC W/Diff, Automatedon 08-2 0-2025 Absolute Lymph 0.24 X10 3/uL Low 0.83-4.51 [facility] Comment on above: Performed By: #### L 500.2500, L100.0100 ####[facility] [address] [place], [address] Absolute Neut 6.3 X10 3/uL Normal 2.0-7.7 [facility] Comment on above: Performed By: #### L 500.2500, L100.0100 ####[facility] [address] [place], [address] Basophils/100 WBC (Bld) 0.0 % Normal 0-1 [facility] Comment on above: Performed By: #### L 500.2500, L100.0100 ####[facility] [address] [place], [address] Eosinophils/100 WBC (Bld) 0.0 % Normal 0-5 [facility] Comment on above: Performed By: #### L 500.2500, L100.0100 ####[facility] [address] [place], [address] Erythrocyte distribution width (RBC) [Ratio] 17.2 % High 11.6-14.6 [facility] Comment on above: Performed By: #### L 500.2500, L100.0100 ####[facility] [address] [place], [address] Hematocrit (Bld) [Volume fraction] 27.0 % Low 40-54 [facility] Comment on above: Performed By: #### L 500.2500, L100.0100 ####[facility] [address] [place], [address] Hemoglobin (Bld) [Mass/Vol] 8.3 g/dL Low 13.0-16.5 [facility] Comment on above: Performed By: #### L 500.2500, L100.0100 ####[facility] [address] [place], [address] IG% 0.600 Normal 0.0-0.9 [facility] Comment on above: Result Comment: IG% - Immature Granulocytes (promyelocytes, myelocytes andmetamyelocytes) > 1% indicates that a LEFT SHIFT is Present. Performed By: #### L 500.2500, L100.0100 ####[facility] [address] [place], [address] Lymphocytes/100 WBC (Bld) 3.5 % Low 19-41 [facility] Comment on above: Performed By: #### L 500.2500, L100.0100 ####[facility] [address] [place], [address] MCH (RBC) [Entitic mass] 26.9 pg Low 27.0-32.0 [facility] Comment on above: Performed By: #### L 500.2500, L100.0100 ####[facility] [address] [place], [address] MCHC (RBC) [Mass/Vol] 30.7 g/dL Low 32-36 [facility] Comment on above: Performed By: #### L 500.2500, L100.0100 ####[facility] [address] [place], [address] MCV (RBC) [Entitic vol] 87.4 fL Normal 80-94 [facility] Comment on above: Performed By: #### L 500.2500, L100.0100 ####[facility] [address] [place], [address] Monocytes/100 WBC (Bld) 4.5 % Normal 0-10 [facility] Comment on above: Performed By: #### L 500.2500, L100.0100 ####[facility] [address] [place], [address] Neutrophils/100 WBC (Bld) 91.4 % High 47-70 [facility] Comment on above: Performed By: #### L 500.2500, L100.0100 ####[facility] [address] [place], [address] Nucleated RBC (Bld) [#/Vol] 0 10*3/uL Normal 0-5 [facility] Comment on above: Performed By: #### L 500.2500, L100.0100 ####[facility] [address] [place], [address] Platelet mean volume (Bld) [Entitic vol] 10.7 fL Normal 6.2-12.0 [facility] Comment on above: Performed By: #### L 500.2500, L100.0100 ####[facility] [address] [place], [address] Platelets (Bld) [#/Vol] 192 10*3/uL Normal 150-450 [facility] Comment on above: Performed By: #### L 500.2500, L100.0100 ####[facility] [address] [place], [address] RBC (Bld) [#/Vol] 3.09 10*6/uL Low 4.6-6.2 [facility] Comment on above: Performed By: #### L 500.2500, L100.0100 ####[facility] [address] [place], [address] RDW SD 54.2 fl High 35.1-43.9 [facility] Comment on above: Performed By: #### L 500.2500, L100.0100 ####[facility] [address] [place], [address] WBC (Bld) [#/Vol] 6.9 10*3/uL Normal 4.4-11.0 [facility] Comment on above: Performed By: #### L 500.2500, L100.0100 ####[facility] [address] [place], [address] Consultation - Cardiologyon 04-08-2025 Consultation - Cardiology Normal [facility] Basic Metabolic Profile (BMP )on 04-07-2025 BUN/CRE 26.3 RATIO High 10-20 [facility] Comment on above: Performed By: #### L 500.2500, L501.2300 ####[facility] [address] [place], [address] Calcium [Mass/Vol] 8.8 mg/dL Normal 7.6-11.0 [facility] Comment on above: Performed By: #### L 500.2500, L501.2300 ####[facility] [address] [place], [address] Chloride [Moles/Vol] 96 mmol/L Low 98-108 [facility] Comment on above: Performed By: #### L 500.2500, L501.2300 ####[facility] [address] [place], [address] CO2 [Moles/Vol] 29.8 mmol/L Normal 21.0-32.0 [facility] Comment on above: Performed By: #### L 500.2500, L501.2300 ####[facility] [address] [place], [address] Creatinine [Mass/Vol] 2.21 mg/dL High 0.70-1.20 [facility] Comment on above: Performed By: #### L 500.2500, L501.2300 ####[facility] [address] [place], [address] ECRCL 24.06 ml/min Low 50-250 [facility] Comment on above: Performed By: #### L 500.2500, L501.2300 ####[facility] [address] [place], [address] GAP 11 Normal 5-15 [facility] Comment on above: Performed By: #### L 500.2500, L501.2300 ####[facility] [address] [place], [address] GFR/1.73 sq M.predicted among non-blacks MDRD (S/P/Bld) [Vol rate/Area] 29 mL/min/{1.73_m2} Low >60 [facility] Comment on above: Result Comment: mL/m in/1.73m2 CKD-EPI Creatinine Equation (2020) Performed By: #### L 500.2500, L501.2300 ####[facility] [address] [place], [address] Glucose [Mass/Vol] 171 mg/dL High 70-99 [facility] Comment on above: Performed By: #### L 500.2500, L501.2300 ####[facility] [address] [place], [address] Potassium [Moles/Vol] 4.6 mmol/L Normal 3.3-5.1 [facility] Comment on above: Performed By: #### L 500.2500, L501.2300 ####[facility] [address] [place], [address] Sodium [Moles/Vol] 137 mmol/L Normal 133-145 [facility] Comment on above: Performed By: #### L 500.2500, L501.2300 ####[facility] [address] [place], [address] Urea nitrogen [Mass/Vol] 58 mg/dL High 4-19 [facility] Comment on above: Performed By: #### L 500.2500, L501.2300 ####[facility] [address] [place], [address] Bedside Glucoseon 04-07-2025 FINGERSTICK GLU 272 mg/dL High 74-106 [facility] Comment on above: Result Comment: KODY GEMENT OF PATIENT CARE PER NURSING PROTOCOL Performed By: #### L 501.080 ####[facility] [address] [place], [address] FINGERSTICK GLU 249 mg/dL High 74-106 [facility] Comment on above: Result Comment: KODY GEMENT OF PATIENT CARE PER NURSING PROTOCOL Performed By: #### L 501.080 ####[facility] [address] [place], [address] FINGERSTICK GLU 303 mg/dL High [facility]106 [facility] Comment on above: Result Comment: KODY GEMENT OF PATIENT CARE PER NURSING PROTOCOL Performed By: #### L 501.080 ####[facility] [address] [place], [address] FINGERSTICK GLU 162 mg/dL High [facility]106 [facility] Comment on above: Result Comment: KODY GEMENT OF PATIENT CARE PER NURSING PROTOCOL Performed By: #### L 501.080 ####[facility] [address] [place], [address] CBC W/Diff, Automatedon 03-20 Absolute Lymph 0.20 X10 3/uL Low 0.83-4.51 [facility] Comment on above: Performed By: #### L 100.0100 ####[facility] [address] [place], [address] Absolute Neut 5.9 X10 3/uL Normal 2.0-7.7 [facility] Comment on above: Performed By: #### L 100.0100 ####[facility] [address] [place], [address] Basophils/100 WBC (Bld) 0.2 % Normal 0-1 [facility] Comment on above: Performed By: #### L 100.0100 ####[facility] [address] [place], [address] Eosinophils/100 WBC (Bld) 0.0 % Normal 0-5 [facility] Comment on above: Performed By: #### L 100.0100 ####[facility] [address] [place], [address] Erythrocyte distribution width (RBC) [Ratio] 17.1 % High 11.6-14.6 [facility] Comment on above: Performed By: #### L 100.0100 ####[facility] [address] [place], [address] Hematocrit (Bld) [Volume fraction] 25.6 % Low 40-54 [facility] Comment on above: Performed By: #### L 100.0100 ####[facility] [address] [place], [address] Hemoglobin (Bld) [Mass/Vol] 8.0 g/dL Low 13.0-16.5 [facility] Comment on above: Performed By: #### L 100.0100 ####[facility] [address] [place], [address] IG% 1.400 High 0.0-0.9 [facility] Comment on above: Result Comment: IG% - Immature Granulocytes (promyelocytes, myelocytes andmetamyelocytes) > 1% indicates that a LEFT SHIFT is Present. Performed By: #### L 100.0100 ####[facility] [address] [place], [address] Lymphocytes/100 WBC (Bld) 3.1 % Low 19-41 [facility] Comment on above: Performed By: #### L 100.0100 ####[facility] [address] [place], [address] MCH (RBC) [Entitic mass] 27.0 pg Normal 27.0-32.0 [facility] Comment on above: Performed By: #### L 100.0100 ####[facility] [address] [place], [address] MCHC (RBC) [Mass/Vol] 31.3 g/dL Low 32-36 [facility] Comment on above: Performed By: #### L 100.0100 ####[facility] [address] [place], [address] MCV (RBC) [Entitic vol] 86.5 fL Normal 80-94 [facility] Comment on above: Performed By: #### L 100.0100 ####[facility] [address] [place], [address] Monocytes/100 WBC (Bld) 2.5 % Normal 0-10 [facility] Comment on above: Performed By: #### L 100.0100 ####[facility] [address] [place], [address] Neutrophils/100 WBC (Bld) 92.8 % High 47-70 [facility] Comment on above: Performed By: #### L 100.0100 ####[facility] [address] [place], [address] Nucleated RBC (Bld) [#/Vol] 0 10*3/uL Normal 0-5 [facility] Comment on above: Performed By: #### L 100.0100 ####[facility] [address] [place], [address] Platelet mean volume (Bld) [Entitic vol] 10.4 fL Normal 6.2-12.0 [facility] Comment on above: Performed By: #### L 100.0100 ####[facility] [address] [place], [address] Platelets (Bld) [#/Vol] 189 10*3/uL Normal 150-450 [facility] Comment on above: Performed By: #### L 100.0100 ####[facility] [address] [place], [address] RBC (Bld) [#/Vol] 2.96 10*6/uL Low 4.6-6.2 [facility] Comment on above: Performed By: #### L 100.0100 ####[facility] [address] [place], [address] RDW SD 53.1 fl High 35.1-43.9 [facility] Comment on above: Performed By: #### L 100.0100 ####[facility] [address] [place], [address] WBC (Bld) [#/Vol] 6.4 10*3/uL Normal 4.4-11.0 [facility] Comment on above: Performed By: #### L 100.0100 ####[facility] [address] [place], [address] Electrocardiogram reportOrde red By: Issa Looney on 04-07-2025 EKG study [facility] Work Phone: Phosphoruson 04-07-2025 Phosphate [Mass/Vol] 4.6 mg/dL High 2.7-4.5 [facility] Comment on above: Performed By: #### L 500.2500, L501.2300 ####[facility] [address] [place], [address] Bedside Glucoseon 04-06-2025 FINGERSTICK GLU 378 mg/dL High 74-106 [facility] Comment on above: Result Comment: KODY STRONG OF PATIENT CARE PER NURSING PROTOCOL Performed By: #### L 501.080 ####[facility] [address] [place], [address] FINGERSTICK GLU 168 mg/dL High 74-106 [facility] Comment on above: Result Comment: KDOY GEMENT OF PATIENT CARE PER NURSING PROTOCOL Performed By: #### L 501.080 ####[facility] [address] [place], [address] FINGERSTICK GLU 140 mg/dL High 74-106 [facility] Comment on above: Result Comment: KODY GEMENT OF PATIENT CARE PER NURSING PROTOCOL Performed By: #### L 501.080 ####[facility] [address] [place], [address] FINGERSTICK GLU 116 mg/dL High -106 [facility] Comment on above: Result Comment: KODY GEMENT OF PATIENT CARE PER NURSING PROTOCOL Performed By: #### L 501.080 ####[facility] [address] [place], [address] FINGERSTICK GLU 112 mg/dL High -106 [facility] Comment on above: Result Comment: KODY GEMENT OF PATIENT CARE PER NURSING PROTOCOL Performed By: #### L 501.080 ####[facility] [address] [place], [address] Bilirubin, totalOrdered By: Nicola Madison on 04-06-2025 Bilirubin [Mass/Vol] 0.40 mg/dL 0.00-1.30 [facility] CBC W/Diff, Automatedon 03-20 Absolute Lymph 0.50 X10 3/uL Low 0.83-4.51 [facility] Comment on above: Performed By: #### L 100.0100 ####[facility] [address] [place], [address] Absolute Neut 6.4 X10 3/uL Normal 2.0-7.7 [facility] Comment on above: Performed By: #### L 100.0100 ####[facility] [address] [place], [address] Basophils/100 WBC (Bld) 0.5 % Normal 0-1 [facility] Comment on above: Performed By: #### L 100.0100 ####[facility] [address] [place], [address] Eosinophils/100 WBC (Bld) 0.5 % Normal 0-5 [facility] Comment on above: Performed By: #### L 100.0100 ####[facility] [address] [place], [address] Erythrocyte distribution width (RBC) [Ratio] 16.8 % High 11.6-14.6 [facility] Comment on above: Performed By: #### L 100.0100 ####[facility] [address] [place], [address] Hematocrit (Bld) [Volume fraction] 26.3 % Low 40-54 [facility] Comment on above: Performed By: #### L 100.0100 ####[facility] [address] [place], [address] Hemoglobin (Bld) [Mass/Vol] 7.9 g/dL Low 13.0-16.5 [facility] Comment on above: Performed By: #### L 100.0100 ####[facility] [address] [place], [address] IG% 0.600 Normal 0.0-0.9 [facility] Comment on above: Result Comment: IG% - Immature Granulocytes (promyelocytes, myelocytes andmetamyelocytes) > 1% indicates that a LEFT SHIFT is Present. Performed By: #### L 100.0100 ####[facility] [address] [place], [address] Lymphocytes/100 WBC (Bld) 6.4 % Low 19-41 [facility] Comment on above: Performed By: #### L 100.0100 ####[facility] [address] [place], [address] MCH (RBC) [Entitic mass] 26.9 pg Low 27.0-32.0 [facility] Comment on above: Performed By: #### L 100.0100 ####[facility] [address] [place], [address] MCHC (RBC) [Mass/Vol] 30.0 g/dL Low 32-36 [facility] Comment on above: Performed By: #### L 100.0100 ####[facility] [address] [place], [address] MCV (RBC) [Entitic vol] 89.5 fL Normal 80-94 [facility] Comment on above: Performed By: #### L 100.0100 ####[facility] [address] [place], [address] Monocytes/100 WBC (Bld) 10.1 % High 0-10 [facility] Comment on above: Performed By: #### L 100.0100 ####[facility] [address] [place], [address] Neutrophils/100 WBC (Bld) 81.9 % High 47-70 [facility] Comment on above: Performed By: #### L 100.0100 ####[facility] [address] [place], [address] Nucleated RBC (Bld) [#/Vol] 0 10*3/uL Normal 0-5 [facility] Comment on above: Performed By: #### L 100.0100 ####[facility] [address] [place], [address] Platelet mean volume (Bld) [Entitic vol] 10.4 fL Normal 6.2-12.0 [facility] Comment on above: Performed By: #### L 100.0100 ####[facility] [address] [place], [address] Platelets (Bld) [#/Vol] 178 10*3/uL Normal 150-450 [facility] Comment on above: Performed By: #### L 100.0100 ####[facility] [address] [place], [address] RBC (Bld) [#/Vol] 2.94 10*6/uL Low 4.6-6.2 [facility] Comment on above: Performed By: #### L 100.0100 ####[facility] [address] [place], [address] RDW SD 54.7 fl High 35.1-43.9 [facility] Comment on above: Performed By: #### L 100.0100 ####[facility] [address] [place], [address] WBC (Bld) [#/Vol] 7.8 10*3/uL Normal 4.4-11.0 [facility] Comment on above: Performed By: #### L 100.0100 ####[facility] [address] [place], [address] Chest 1 View (Portable)on Chest 1 View (Portable) Normal [facility] Comprehensive Metabolic Prof ilon 04-06-2025 Albumin [Mass/Vol] 3.3 g/dL Low 3.4-4.8 [facility] Comment on above: Performed By: #### L 500.4050, L501.2300, L503.7505 ####[facility] [address] [place], [address] Albumin/Globulin [Mass ratio] 0.9 {ratio} Normal 0.9-2.4 [facility] Comment on above: Performed By: #### L 500.4050, L501.2300, L503.7505 ####[facility] [address] [place], [address] ALK PHOS 70 U/L Normal 40-129 [facility] Comment on above: Performed By: #### L 500.4050, L501.2300, L503.7505 ####[facility] [address] [place], [address] ALT [Catalytic activity/Vol] 13 U/L Normal <=46 [facility] Comment on above: Performed By: #### L 500.4050, L501.2300, L503.7505 ####[facility] [address] [place], [address] AST [Catalytic activity/Vol] 19 U/L Normal <=37 [facility] Comment on above: Performed By: #### L 500.4050, L501.2300, L503.7505 ####[facility] [address] [place], [address] Bilirubin [Mass/Vol] 0.40 mg/dL Normal 0.00-1.30 [facility] Comment on above: Performed By: #### L 500.4050, L501.2300, L503.7505 ####[facility] [address] [place], [address] BUN/CRE 22.8 RATIO High 10-20 [facility] Comment on above: Performed By: #### L 500.4050, L501.2300, L503.7505 ####[facility] [address] [place], [address] Calcium [Mass/Vol] 8.8 mg/dL Normal 7.6-11.0 [facility] Comment on above: Performed By: #### L 500.4050, L501.2300, L503.7505 ####[facility] [address] [place], [address] Chloride [Moles/Vol] 100 mmol/L Normal 98-108 [facility] Comment on above: Performed By: #### L 500.4050, L501.2300, L503.7505 ####[facility] [address] [place], [address] CO2 [Moles/Vol] 27.9 mmol/L Normal 21.0-32.0 [facility] Comment on above: Performed By: #### L 500.4050, L501.2300, L503.7505 ####[facility] [address] [place], [address] Creatinine [Mass/Vol] 2.52 mg/dL High 0.70-1.20 [facility] Comment on above: Performed By: #### L 500.4050, L501.2300, L503.7505 ####[facility] [address] [place], [address] ECRCL 22.79 ml/min Low 50-250 [facility] Comment on above: Performed By: #### L 500.4050, L501.2300, L503.7505 ####[facility] [address] [place], [address] GAP 10 Normal 5-15 [facility] Comment on above: Performed By: #### L 500.4050, L501.2300, L503.7505 ####[facility] [address] [place], [address] GFR/1.73 sq M.predicted among non-blacks MDRD (S/P/Bld) [Vol rate/Area] 25 mL/min/{1.73_m2} Low >60 [facility] Comment on above: Result Comment: mL/m in/1.73m2 CKD-EPI Creatinine Equation (2020) Performed By: #### L 500.4050, L501.2300, L503.7505 ####[facility] [address] [place], [address] Globulin (S) [Mass/Vol] 3.5 g/dL Normal 2.2-4.2 [facility] Comment on above: Performed By: #### L 500.4050, L501.2300, L503.7505 ####[facility] [address] [place], [address] Glucose [Mass/Vol] 102 mg/dL High 70-99 [facility] Comment on above: Performed By: #### L 500.4050, L501.2300, L503.7505 ####[facility] [address] [place], [address] Potassium [Moles/Vol] 4.7 mmol/L Normal 3.3-5.1 [facility] Comment on above: Performed By: #### L 500.4050, L501.2300, L503.7505 ####[facility] [address] [place], [address] Sodium [Moles/Vol] 138 mmol/L Normal 133-145 [facility] Comment on above: Performed By: #### L 500.4050, L501.2300, L503.7505 ####[facility] [address] [place], [address] T PROT 6.8 g/dL Normal 5.9-8.4 [facility] Comment on above: Performed By: #### L 500.4050, L501.2300, L503.7505 ####[facility] [address] [place], [address] Urea nitrogen [Mass/Vol] 58 mg/dL High 4-19 [facility] Comment on above: Performed By: #### L 500.4050, L501.2300, L503.7505 ####[facility] [address] [place], [address] Consultation - Nephrologyon 04-06-2025 Consultation - Nephrology Normal [facility] Kidney and Bladderon 025 Kidney and Bladder Normal [facility] Natriuretic peptide.B prohor girish N-Terminal [Mass/volume] in Serum or PlasmaOrdered By: Nicola Madison on 04-06-2025 Natriuretic peptide.B prohormone N-Terminal [Mass/Vol] 4038 pg/mL High <1800 [facility] No Panel InformationOrdered By: Nicola Madison on 04-06-2025 19 U/L <38 [facility] Phosphoruson 04-06-2025 Phosphate [Mass/Vol] 5.4 mg/dL High 2.7-4.5 [facility] Comment on above: Performed By: #### L 500.4050, L501.2300, L503.7505 ####[facility] [address] [place], [address] Pro- Brain NATRIURETIC PEPTI Adrienne 04-06-2025 Natriuretic peptide B (Bld) [Mass/Vol] 4038 pg/mL High <=1800 [facility] Comment on above: Result Comment: Hear t Failure Unlikely: < 300 pg/mLHeart Failure Likely< 50 Years: > 450 pg/mL50-75 Years: > 900 pg/mL>75 Years: > 1800 pg/mL Performed By: #### L 500.4050, L501.2300, L503.7505 ####[facility] [address] [place], [address] Protein+Creatinine Ratio,Uri neon 04-06-2025 PROT:CRE RATIO 1660 mg/g CRE High 0-200 [facility] Comment on above: Performed By: #### L 501.0900 ####[facility] [address] [place], [address] UR CREAT 32.10 mg/dL Low 39.00-259. 00 [facility] Comment on above: Performed By: #### L 501.0900 ####[facility] [address] [place], [address] RESPIRATORY PANEL MOLECULARo n 04-06-2025 RP PANEL Normal [facility] Comment on above: Performed By: #### M [id number] ####[facility] [address] [place], [address] Random urine creatinine kingsley urement (mass/volume)Ordered By: Madeline Sarabia on 04-06-2025 Creatinine Unsp time (U) [Mass/Vol] 32.10 mg/dL Low 39.00-259. 00 [facility] Respiratory pathogens detect ion panel by molecular detection methodOrdered By: Nicola Madison on 04-06-2025 Respiratory pathogens DNA and RNA panel BRYAN+probe (Resp) [facility] Serum globulin measurementOr dered By: Nicola Madison on 04-06-2025 Globulin (S) [Mass/Vol] 3.5 g/dL 2.2-4.2 [facility] Serum or plasma alanine ortiz otransferase (ALT) measurementOrdered By: Nicola Madison on 04-06-2025 ALT [Catalytic activity/Vol] 13 U/L <47 [facility] Serum or plasma albumin kingsley urement (mass/volume)Ordered By: Nicola Madison on 04-06-2025 Albumin [Mass/Vol] 3.3 g/dL Low 3.4-4.8 [facility] Serum or plasma albumin/glob ulin mass ratioOrdered By: Nicola Madison on 04-06-2025 Albumin/Globulin [Mass ratio] 0.9 {ratio} 0.9-2.4 [facility] Serum or plasma alkaline roosevelt sphatase measurementOrdered By: Nicola Madison on 04-06-2025 ALP [Catalytic activity/Vol] 70 U/L 40-129 [facility] Total proteinOrdered By: Jacob Madison on 04-06-2025 Protein [Mass/Vol] 6.8 g/dL 5.9-8.4 [facility] Urine protein measurement (m ass/volume)Ordered By: Madeline Sarabia on 04-06-2025 Protein (U) [Mass/Vol] 53.3 mg/dL High 0.0-12.0 [facility] Comment on above: Performed By: #### L 501.0900 ####[facility] [address] [place], [address] Urine protein/creatinine mas s ratioOrdered By: Madeline Sarabia on 04-06-2025 Protein/Creatinine (U) [Mass ratio] 1660 mg/g CRE High 0-200 [facility] 12 Lead EKGon 04-05-2025 12 Lead EKG Normal [facility] Absolute lymphocyte countOrd ered By: Ld Hayes on 04-05-2025 Lymphocytes Auto (Unsp spec) [#/Vol] 0.64 10*3/uL Low 0.83-4.51 [facility] Anion gap in Serum or Plasma Ordered By: dL Hayes on 04-05-2025 Anion gap [Moles/Vol] 11 mmol/L 5-15 [facility] Assessment of wrist artery p atency prior to arterial punctureOrdered By: Nicola Madison on 04-05-2025 Arterial patency Wrist artery --pre arterial puncture Positive [facility] Automated lymphocyte count a s percentage of total leukocytesOrdered By: Ld Hayes on 04-05-2025 Lymphocytes/100 WBC Auto (Unsp spec) 7.3 % Low 19-41 [facility] BUN/creatinine ratioOrdered By: Ld Hayes on 04-05-2025 Urea nitrogen/Creatinine [Mass ratio] 23.2 mg/mg High 10-20 [facility] Basic Metabolic Profile (BMP )on 04-05-2025 BUN/CRE 23.2 RATIO High 10-20 [facility] Comment on above: Performed By: #### L 100.0100, L500.2500 ####[facility] [address] [place], [address] Calcium [Mass/Vol] 8.8 mg/dL Normal 7.6-11.0 [facility] Comment on above: Performed By: #### L 100.0100, L500.2500 ####[facility] [address] [place], [address] Chloride [Moles/Vol] 97 mmol/L Low 98-108 [facility] Comment on above: Performed By: #### L 100.0100, L500.2500 ####[facility] [address] [place], [address] CO2 [Moles/Vol] 26.7 mmol/L Normal 21.0-32.0 [facility] Comment on above: Performed By: #### L 100.0100, L500.2500 ####[facility] [address] [place], [address] Creatinine [Mass/Vol] 2.57 mg/dL High 0.70-1.20 [facility] Comment on above: Performed By: #### L 100.0100, L500.2500 ####[facility] [address] [place], [address] ECRCL 22.62 ml/min Low 50-250 [facility] Comment on above: Performed By: #### L 100.0100, L500.2500 ####[facility] [address] [place], [address] GAP 11 Normal 5-15 [facility] Comment on above: Performed By: #### L 100.0100, L500.2500 ####[facility] [address] [place], [address] GFR/1.73 sq M.predicted among non-blacks MDRD (S/P/Bld) [Vol rate/Area] 25 mL/min/{1.73_m2} Low >60 [facility] Comment on above: Result Comment: mL/m in/1.73m2 CKD-EPI Creatinine Equation (2020) Performed By: #### L 100.0100, L500.2500 ####[facility] [address] [place], [address] Glucose [Mass/Vol] 164 mg/dL High 70-99 [facility] Comment on above: Performed By: #### L 100.0100, L500.2500 ####[facility] [address] [place], [address] Potassium [Moles/Vol] 5.8 mmol/L High 3.3-5.1 [facility] Comment on above: Result Comment: Hemo lysis present, Results??could be affected.?? Performed By: #### L 100.0100, L500.2500 ####[facility] [address] [place], [address] Sodium [Moles/Vol] 134 mmol/L Normal 133-145 [facility] Comment on above: Performed By: #### L 100.0100, L500.2500 ####[facility] [address] [place], [address] Urea nitrogen [Mass/Vol] 60 mg/dL High 4-19 [facility] Comment on above: Performed By: #### L 100.0100, L500.2500 ####[facility] [address] [place], [address] Basophil percentageOrdered B y: Ld Abigail on 04-05-2025 Basophils/100 WBC (Bld) 0.6 % 0-1 [facility] Bedside Glucoseon 04-05-2025 FINGERSTICK GLU 76 mg/dL Normal 74-106 [facility] Comment on above: Result Comment: KODY GEMENT OF PATIENT CARE PER NURSING PROTOCOL Performed By: #### L 501.080 ####[facility] [address] [place], [address] FINGERSTICK GLU 147 mg/dL High 74-106 [facility] Comment on above: Result Comment: KODY GEMENT OF PATIENT CARE PER NURSING PROTOCOL Performed By: #### L 501.080 ####[facility] [address] [place], [address] Bilirubin Test strip Ql (U)O rdered By: Nicola Madison on 04-05-2025 Bilirubin Ql (U) Negative Negative [facility] Blood Gases by CPSon 025 EMILIA TEST Positive Normal [facility] Comment on above: Performed By: #### L 9000.0800 ####[facility] [address] [place], [address] Base excess Calc (Bld) [Moles/Vol] 7 mmol/L High -2 to +2 [facility] Comment on above: Performed By: #### L 9000.0800 ####[facility] [address] [place], [address] Blood Gas Type ART [facility] Comment on above: Performed By: #### L 9000.0800 ####[facility] [address] [place], [address] CO2 [Moles/Vol] 34 mmol/L Normal [facility] Comment on above: Performed By: #### L 9000.0800 ####[facility] [address] [place], [address] FI02 6.0 [facility] Comment on above: Performed By: #### L 9000.0800 ####[facility] [address] [place], [address] HCO3 (Bld) [Moles/Vol] 32.4 mmol/L High 22-26 [facility] Comment on above: Performed By: #### L 9000.0800 ####[facility] [address] [place], [address] Mode Not entered [facility] Comment on above: Performed By: #### L 9000.0800 ####[facility] [address] [place], [address] O2 Delivery Dev Cannula Normal [facility] Comment on above: Performed By: #### L 9000.0800 ####[facility] [address] [place], [address] pCO2 57.1 mmHg High 35-45 [facility] Comment on above: Performed By: #### L 9000.0800 ####[facility] [address] [place], [address] pH (Bld) 7.36 [pH] Normal 7.35-7.45 [facility] Comment on above: Performed By: #### L 9000.0800 ####[facility] [address] [place], [address] PO2 71 mmHG Low 75-100 [facility] Comment on above: Performed By: #### L 9000.0800 ####[facility] [address] [place], [address] SITE R Radial Normal [facility] Comment on above: Performed By: #### L 9000.0800 ####[facility] [address] [place], [address] SO2 93 Low 95-99 [facility] Comment on above: Performed By: #### L 9000.0800 ####[facility] [address] [place], [address] Blood base excess determinat ionOrdered By: Nicola Madison on 04-05-2025 Base excess Calc (BldV) [Moles/Vol] 7 mmol/L High -2-2 [facility] Blood bicarbonate measuremen tOrdered By: Nicola Madison on 04-05-2025 HCO3 (Bld) [Moles/Vol] 32.4 mmol/L High 22-26 [facility] CBC W/Diff, Automatedon 03-20 Absolute Lymph 0.64 X10 3/uL Low 0.83-4.51 [facility] Comment on above: Performed By: #### L 100.0100, L500.2500 ####[facility] [address] [place], [address] Absolute Neut 7.0 X10 3/uL Normal 2.0-7.7 [facility] Comment on above: Performed By: #### L 100.0100, L500.2500 ####[facility] [address] [place], [address] Basophils/100 WBC (Bld) 0.6 % Normal 0-1 [facility] Comment on above: Performed By: #### L 100.0100, L500.2500 ####[facility] [address] [place], [address] Eosinophils/100 WBC (Bld) 1.0 % Normal 0-5 [facility] Comment on above: Performed By: #### L 100.0100, L500.2500 ####[facility] [address] [place], [address] Erythrocyte distribution width (RBC) [Ratio] 17.1 % High 11.6-14.6 [facility] Comment on above: Performed By: #### L 100.0100, L500.2500 ####[facility] [address] [place], [address] Hematocrit (Bld) [Volume fraction] 29.0 % Low 40-54 [facility] Comment on above: Performed By: #### L 100.0100, L500.2500 ####[facility] [address] [place], [address] Hemoglobin (Bld) [Mass/Vol] 8.9 g/dL Low 13.0-16.5 [facility] Comment on above: Performed By: #### L 100.0100, L500.2500 ####[facility] [address] [place], [address] IG% 0.700 Normal 0.0-0.9 [facility] Comment on above: Result Comment: IG% - Immature Granulocytes (promyelocytes, myelocytes andmetamyelocytes) > 1% indicates that a LEFT SHIFT is Present. Performed By: #### L 100.0100, L500.2500 ####[facility] [address] [place], [address] Lymphocytes/100 WBC (Bld) 7.3 % Low 19-41 [facility] Comment on above: Performed By: #### L 100.0100, L500.2500 ####[facility] [address] [place], [address] MCH (RBC) [Entitic mass] 27.2 pg Normal 27.0-32.0 [facility] Comment on above: Performed By: #### L 100.0100, L500.2500 ####[facility] [address] [place], [address] MCHC (RBC) [Mass/Vol] 30.7 g/dL Low 32-36 [facility] Comment on above: Performed By: #### L 100.0100, L500.2500 ####[facility] [address] [place], [address] MCV (RBC) [Entitic vol] 88.7 fL Normal 80-94 [facility] Comment on above: Performed By: #### L 100.0100, L500.2500 ####[facility] [address] [place], [address] Monocytes/100 WBC (Bld) 10.7 % High 0-10 [facility] Comment on above: Performed By: #### L 100.0100, L500.2500 ####[facility] [address] [place], [address] Neutrophils/100 WBC (Bld) 79.7 % High 47-70 [facility] Comment on above: Performed By: #### L 100.0100, L500.2500 ####[facility] [address] [place], [address] Nucleated RBC (Bld) [#/Vol] 0.2 10*3/uL Normal 0-5 [facility] Comment on above: Performed By: #### L 100.0100, L500.2500 ####[facility] [address] [place], [address] Platelet mean volume (Bld) [Entitic vol] 11.1 fL Normal 6.2-12.0 [facility] Comment on above: Performed By: #### L 100.0100, L500.2500 ####[facility] [address] [place], [address] Platelets (Bld) [#/Vol] 226 10*3/uL Normal 150-450 [facility] Comment on above: Performed By: #### L 100.0100, L500.2500 ####[facility] [address] [place], [address] RBC (Bld) [#/Vol] 3.27 10*6/uL Low 4.6-6.2 [facility] Comment on above: Performed By: #### L 100.0100, L500.2500 ####[facility] [address] [place], [address] RDW SD 55.5 fl High 35.1-43.9 [facility] Comment on above: Performed By: #### L 100.0100, L500.2500 ####[facility] [address] [place], [address] WBC (Bld) [#/Vol] 8.7 10*3/uL Normal 4.4-11.0 [facility] Comment on above: Performed By: #### L 100.0100, L500.2500 ####[facility] [address] [place], [address] Carbon dioxide, total [Moles /volume] in Central venous bloodOrdered By: Ld Arteaga 04-05-2025 CO2 [Moles/Vol] 26.7 mmol/L 21.0-32.0 [facility] Chest PA and Lateralon 04-05 Chest PA and Lateral Normal [facility] Chloride assayOrdered By: Sky Hayes on 04-05-2025 Chloride [Moles/Vol] 97 mmol/L Low 98-108 [facility] Emergency Department Summary on 04-05-2025 Emergency Department Summary Normal [facility] Eosinophil percentageOrdered By: Ld Hayes on 04-05-2025 Eosinophils/100 WBC (Bld) 1.0 % 0-5 [facility] Erythrocyte distribution wid th ratioOrdered By: Ld Hayes on 04-05-2025 Erythrocyte distribution width (RBC) [Ratio] 17.1 % High 11.6-14.6 [facility] Erythrocyte distribution wid th standard deviationOrdered By: Ld Hayes on 04-05-2025 Erythrocyte distribution width (RBC) [Ratio] 55.5 fl High 35.1-43.9 [facility] Glomerular filtration rate ( GFR) estimation/1.73 sq m using serum, plasma, or whole bOrdered By: Ld Hayes on 04-05-2025 GFR/1.73 sq M.predicted among non-blacks MDRD (S/P/Bld) [Vol rate/Area] 25 mL/min/{1.73_m2} Low >60 [facility] Glucose measurement at bedsi deOrdered By: Ld Hayes on 04-05-2025 Glucose [Mass/Vol] 147 mg/dL High 74-106 [facility] H AND P Exam - Hospitaliston 04-05-2025 H&P Exam - Hospitalist Normal [facility] Hematocrit Auto (Bld) [Volum e fraction]Ordered By: Ld Hayes on 04-05-2025 Hematocrit (Bld) [Volume fraction] 29.0 % Low 40-54 [facility] Hemoglobin measurementOrdere d By: Ld Hayes on 04-05-2025 Hemoglobin (Bld) [Mass/Vol] 8.9 g/dL Low 13.0-16.5 [facility] Immature granulocytes/100 WB C Auto (Bld)Ordered By: Ld Hayes on 04-05-2025 Immature granulocytes/100 WBC (Bld) 0.700 % 0.0-0.9 [facility] Influenza virus A and B and SARS-CoV-2 (COVID-19) and Respiratory syncytial virus RNAOrdered By: Ld Hayes on 04-05-2025 SARS-CoV-2 (COVID-19) RNA BRYAN+probe Ql (Unsp spec) [facility] Ketones Test strip Ql (U)Ord ered By: Nicola Madison on 04-05-2025 Ketones Ql (U) Negative Negative [facility] L501.4021on 04-05-2025 Trop T High Sen 64 ng/L Invalid Interpretation Code <=22 [facility] Comment on above: Result Comment: Crit ical Result(s) Called AMYERS at: 1805 by:RIVERA??Results read back by same. Performed By: #### L 501.4021 ####[facility] [address] [place], [address] M100.678on 04-05-2025 M100.678 SARS-CoV-2 (COVID 19 ) Negative INFLUENZA A Negative INFLUENZA B Negative RSV PCR Negative Normal [facility] Comment on above: Performed By: #### M 100.678 ####[facility] [address] [place], [address] MCV (mean corpuscular volume ) determinationOrdered By: Ld Hayes on 04-05-2025 MCV (RBC) [Entitic vol] 88.7 fL 80-94 [facility] Magnesiumon 04-05-2025 Magnesium [Mass/Vol] 2.5 mg/dL High 1.5-2.2 [facility] Comment on above: Performed By: #### L 501.5200, L501.9520 ####[facility] [address] [place], [address] Magnesium measurement (mass/ volume)Ordered By: Nicola Madison on 04-05-2025 Magnesium (Unsp spec) [Mass/Vol] 2.5 mg/dL High 1.5-2.2 [facility] Mean corpuscular hemoglobin (MCH) determinationOrdered By: Ld Hayes on 04-05-2025 MCH (RBC) [Entitic mass] 27.2 pg 27.0-32.0 [facility] Measurement, pHOrdered By: Sarah Madison on 04-05-2025 pH (Unsp spec) 7.36 [pH] 7.35-7.45 [facility] Monocyte percentageOrdered B y: Ld Hayes on 04-05-2025 Monocytes/100 WBC (Bld) 10.7 % High 0-10 [facility] Mucus LM Ql (Urine sed)Order ed By: Nicola Madison on 04-05-2025 Mucus Ql (Urine sed) 0 SEEN /hpf [facility] Natriuretic peptide.B prohor girish N-Terminal [Mass/volume] in Serum or PlasmaOrdered By: Ld Hayes on 04-05-2025 Natriuretic peptide.B prohormone N-Terminal [Mass/Vol] 4003 pg/mL High <1800 [facility] Neutrophil percentageOrdered By: Ld Hayes on 04-05-2025 Neutrophils/100 WBC (Bld) 79.7 % High 47-70 [facility] Nitrite Test strip Ql (U)Ord ered By: Nicola Madison on 04-05-2025 Nitrite Ql (U) Negative Negative [facility] No Panel InformationOrdered By: Nicola Madison on 04-05-2025 ART [facility] R Radial [facility] Not entered [facility] Cannula [facility] Platelet countOrdered By: Sky Hayes on 04-05-2025 Platelets (Bld) [#/Vol] 226 10*3/uL 150-450 [facility] Potassium measurement (mass/ volume)Ordered By: Ld Hayes on 04-05-2025 Potassium (Unsp spec) [Mass/Vol] 5.8 mmol/L High 3.3-5.1 [facility] Pro- Brain NATRIURETIC PEPTI Adrienne 04-05-2025 Natriuretic peptide B (Bld) [Mass/Vol] 4003 pg/mL High <=1800 [facility] Comment on above: Result Comment: Hear t Failure Unlikely: < 300 pg/mLHeart Failure Likely< 50 Years: > 450 pg/mL50-75 Years: > 900 pg/mL>75 Years: > 1800 pg/mL Performed By: #### L 503.5704 ####[facility] [address] [place], [address] Protein Test strip Ql (U)Ord ered By: Nicola Madison on 04-05-2025 Protein Ql (U) 100 mg/dl High Negative [facility] RBC Auto (Bld) [#/Vol]Ordere d By: Ld Hayes on 04-05-2025 RBC (Bld) [#/Vol] 3.27 10*6/uL Low 4.6-6.2 [facility] Serum creatinine measurement (mass/volume)Ordered By: Ld Hayes on 04-05-2025 Creatinine [Mass/Vol] 2.57 mg/dL High 0.70-1.20 [facility] Serum glucose measurement (m ass/volume)Ordered By: Ld Hayes on 04-05-2025 Glucose [Mass/Vol] 164 mg/dL High 70-99 [facility] Serum or plasma calcium kingsley urement (mass/volume)Ordered By: Ld Hayes on 04-05-2025 Calcium [Mass/Vol] 8.8 mg/dL 7.6-11.0 [facility] Serum or plasma urea nitroge n measurement (mass/volume)Ordered By: Ld Hayes on 04-05-2025 Urea nitrogen [Mass/Vol] 60 mg/dL High 4-19 [facility] Sodium levelOrdered By: Ld Hayes on 04-05-2025 Sodium [Moles/Vol] 134 mmol/L 133-145 [facility] Squamous epithelial cells de tection in urine sediment by light microscopyOrdered By: Nicola Madison on 04-05-2025 Epithelial cells.squamous LM Ql (Urine sed) 0-5 SEEN /hpf 0-5 [facility] TSH DL <= 0.005 mIU/L QnOrde red By: Nicola Madison on 04-05-2025 TSH Qn 3.830 uIU/mL 0.300-4.20 0 [facility] Thyroid Stim Hormone (TSH)on 04-05-2025 TSH 3.830 uIU/mL Normal 0.300-4.20 0 [facility] Comment on above: Performed By: #### L 501.5203, L501.9520 ####[facility] [address] [place], [place], [id number] Total carbon dioxide measure mentOrdered By: Nicola Madison on 04-05-2025 CO2 [Moles/Vol] 34 mmol/L [facility] Troponin T HS 2 HRon 025 Trop T High Sen 62 ng/L Invalid Interpretation Code <=22 [facility] Comment on above: Result Comment: Crit ical Result(s) Called LSPARR at:2002 by:RIVERA??Results read back by same. Performed By: #### L 499.0042 ####[facility] [address] [place], [place], [id number] Troponin T HS 4 HRon 025 Trop T High Sen 60 ng/L Invalid Interpretation Code <=22 [facility] Comment on above: Result Comment: Crit ical Result(s) Called MIGUELINA OCHOA at: 2137 by:[employer]??Results read back by same. Performed By: #### L 499.0043 ####[facility] [address] [place], [place], [id number] Troponin T.cardiac [Mass/vol ume] in Serum or Plasma by High sensitivity methodOrdered By: Ld Hayes on 04-05-2025 Troponin T.cardiac High sensitivity method [Mass/Vol] 60 ng/L High <22 [facility] Troponin T.cardiac High sensitivity method [Mass/Vol] 62 ng/L High <22 [facility] Troponin T.cardiac High sensitivity method [Mass/Vol] 64 ng/L High <22 [facility] Urinalysis, Completeon 04-05 BACTERIA 2+ /hpf Normal None Seen [facility] Comment on above: Order Comment: CLEAN CATCH Performed By: #### L 400.0001 ####[facility] [address] [place], [place], [address] EPI,SQUAMOUS 0-5 SEEN Normal 0-5 [facility] Comment on above: Order Comment: CLEAN CATCH Performed By: #### L 400.0001 ####[facility] [address] [place], [address] RBC 0-5 SEEN Normal 0-5 [facility] Comment on above: Order Comment: CLEAN CATCH Performed By: #### L 400.0001 ####[facility] [address] [place], [address] WBC 5-10 SEEN Normal 0-5 [facility] Comment on above: Order Comment: CLEAN CATCH Performed By: #### L 400.0001 ####[facility] [address] [place], [address] Mucus Ql (Urine sed) [address] [facility] Comment on above: Order Comment: CLEAN CATCH Performed By: #### L 400.0001 ####[facility] [address] [place], [address] Urine clarityOrdered By: Jacob Madison on 04-05-2025 Clarity (U) Clear Clear [facility] Urine color determinationOrd ered By: Nicola Madison on 04-05-2025 Color (U) Yellow Yellow [facility] Urine glucose detectionOrder ed By: Nicola Mdaison on 04-05-2025 Glucose Ql (U) Normal mg/dl Normal [facility] Urine leukocyte esterase det ection by dipstickOrdered By: Nicola Madison on 04-05-2025 Leukocyte esterase Test strip Ql (U) 500 /ul High Negative [facility] Urine pHOrdered By: Nicola stack on 04-05-2025 pH (U) 5.0 [pH] 5.0 - 8.0 [facility] Urine sediment bacteria coun t by microscopy (number/high power field)Ordered By: Nicola Madison on 04-05-2025 Bacteria LM.HPF (Urine sed) [#/Area] 2 /[HPF] None Seen [facility] Urine specific gravity measu rementOrdered By: Nicola Madison on 04-05-2025 Specific gravity (U) [Rel density] 1.015 1.002-1.03 0 [facility] Urine urobilinogen measureme ntOrdered By: Nicola Madison on 04-05-2025 Urobilinogen Ql (U) Normal mg/dl Normal [facility] White blood cell (WBC) count Ordered By: Ld Hayes on 04-05-2025 WBC (Bld) [#/Vol] 8.7 10*3/uL 4.4-11.0 [facility] White blood cell countOrdere d By: Nicola Madison on 04-05-2025 White blood cell count 5-10 SEEN /hpf 0-5 [facility] Absolute lymphocyte countOrd ered By: Leslie Arriaga on 04-02-2025 Lymphocytes Auto (Unsp spec) [#/Vol] 0.87 10*3/uL 0.83-4.51 [facility] Absolute neutrophil countOrd ered By: Leslie Arriaga on 04-02-2025 Neutrophils (Bld) [#/Vol] 6.9 10*3/uL 2.0-7.7 [facility] Anion gap in Serum or Plasma Ordered By: Leslie Arriaga on 04-02-2025 Anion gap [Moles/Vol] 10 mmol/L - [facility] Automated lymphocyte count a s percentage of total leukocytesOrdered By: Leslie Arriaga on 04-02-2025 Lymphocytes/100 WBC Auto (Unsp spec) 10.0 % Low 19- [facility] BUN/creatinine ratioOrdered By: Leslie Arriaga on 04-02-2025 Urea nitrogen/Creatinine [Mass ratio] 16.4 mg/mg - [facility] Basic Metabolic Profile (BMP )on 04-02-2025 BUN/CRE 16.4 RATIO Normal - [facility] Comment on above: Order Comment: Kevin nts[facility] Performed By: #### L 100.0100, L500.2500, L503.7505 ####[facility] [address] [place], [place], [address] Calcium [Mass/Vol] 9.2 mg/dL Normal 7.6-11.0 [facility] Comment on above: Order Comment: Kevin nts: [facility] Performed By: #### L 100.0100, L500.2500, L503.7505 ####[facility] [address] [place], [address] Chloride [Moles/Vol] 99 mmol/L Normal 98-108 [facility] Comment on above: Order Comment: Comme nts: [facility] Performed By: #### L 100.0100, L500.2500, L503.7505 ####[facility] [address] [place], [address] CO2 [Moles/Vol] 27.8 mmol/L Normal 21.0-32.0 [facility] Comment on above: Order Comment: Comme nts: [facility]Home [facility] Performed By: #### L 100.0100, L500.2500, L503.7505 ####[facility] [address] [place], [address] Creatinine [Mass/Vol] 2.13 mg/dL High 0.70-1.20 [facility] Comment on above: Order Comment: Comme nts: [facility] Performed By: #### L 100.0100, L500.2500, [id number] ####[facility] [address] [place], [address] GAP 10 Normal 5-15 [facility] Comment on above: Order Comment: Comme nts: [facility] Performed By: #### L 100.0100, L500.2500, L503.7505 ####[facility] [address] [place], [address] GFR/1.73 sq M.predicted among non-blacks MDRD (S/P/Bld) [Vol rate/Area] 31 mL/min/{1.73_m2} Low >60 [facility] Comment on above: Order Comment: Comme nts: [facility] Result Comment: mL/m in/1.73m2 CKD-EPI Creatinine Equation (2020) Performed By: #### L 100.0100, L500.2500, L503.7505 ####[facility] [address] [place], [address] Glucose [Mass/Vol] 185 mg/dL High 70-99 [facility] Comment on above: Order Comment: Comme nts: [facility] to [facility] TomorrowHome [facility] Tomorrow Performed By: #### L 100.0100, L500.2500, L503.7505 ####[facility] [address] [place], [address] Potassium [Moles/Vol] 5.6 mmol/L High 3.3-5.1 [facility] Comment on above: Order Comment: Comme nts: [facility]Home [facility] Performed By: #### L 100.0100, L500.2500, L503.7505 ####[facility] [address] [place], [address] Sodium [Moles/Vol] 137 mmol/L Normal 133-145 [facility] Comment on above: Order Comment: Comme nts: [facility] to [facility]Home [facility] Performed By: #### L 100.0100, L500.2500, L503.7505 ####[facility] [address] [place], [address] Urea nitrogen [Mass/Vol] 35 mg/dL High 4-19 [facility] Comment on above: Order Comment: Comme nts: [facility] Performed By: #### L 100.0100, L500.2500, L503.7505 ####[facility] [address] [place], [address] Basophil percentageOrdered B y: Leslie Arriaga on 04-02-2025 Basophils/100 WBC (Bld) 0.3 % 0-1 [facility] CBC W/Diff, Automatedon 03-20 Absolute Lymph 0.87 X10 3/uL Normal 0.83-4.51 [facility] Comment on above: Order Comment: Comme nts: [facility] to [facility] Tomorrow Performed By: #### L 100.0100, L500.2500, [id number] ####[facility] [address] [place], [address] Absolute Neut 6.9 X10 3/uL Normal 2.0-7.7 [facility] Comment on above: Order Comment: Comme nts: [facility] to [facility] Tomorrow Performed By: #### L 100.0100, L500.2500, L503.7505 ####[facility] [address] [place], [address] Basophils/100 WBC (Bld) 0.3 % Normal 0-1 [facility] Comment on above: Order Comment: Comme nts: [facility] to [facility] Tomorrow Performed By: #### L 100.0100, L500.2500, [id number] ####[facility] [address] [place], [address] Eosinophils/100 WBC (Bld) 0.8 % Normal 0-5 [facility] Comment on above: Order Comment: Comme nts: [facility] to [facility] Tomorrow Performed By: #### L 100.0100, L500.2500, [id number] ####[facility] [address] [place], [address] Erythrocyte distribution width (RBC) [Ratio] 17.1 % High 11.6-14.6 [facility] Comment on above: Order Comment: Comme nts: [facility] to [facility] Tomorrow Performed By: #### L 100.0100, L500.2500, L503.7505 ####[facility] [address] [place], [address] Hematocrit (Bld) [Volume fraction] 30.6 % Low 40-54 [facility] Comment on above: Order Comment: Comme nts: [facility] to Draw Tomorrow Performed By: #### L 100.0100, L500.2500, L503.7505 ####[facility] [address] [place], [address] Hemoglobin (Bld) [Mass/Vol] 9.2 g/dL Low 13.0-16.5 [facility] Comment on above: Order Comment: Comme nts: [facility] to Draw Tomorrow Performed By: #### L 100.0100, L500.2500, L503.7505 ####[facility] [address] [place], [address] IG% 0.600 Normal 0.0-0.9 [facility] Comment on above: Order Comment: Comme nts: [facility] to [facility] Result Comment: IG% - Immature Granulocytes (promyelocytes, myelocytes andmetamyelocytes) > 1% indicates that a LEFT SHIFT is Present. Performed By: #### L 100.0100, L500.2500, L503.7505 ####[facility] [address] [place], [address] Lymphocytes/100 WBC (Bld) 10.0 % Low 19-41 [facility] Comment on above: Order Comment: Comme nts: [facility] to [facility] Tomorrow Performed By: #### L 100.0100, L500.2500, L503.7505 ####[facility] [address] [place], [address] MCH (RBC) [Entitic mass] 26.8 pg Low 27.0-32.0 [facility] Comment on above: Order Comment: Comme nts: Home [facility] to Draw Tomorrow Performed By: #### L 100.0100, L500.2500, L503.7505 ####[facility] [address] [place], [address] MCHC (RBC) [Mass/Vol] 30.1 g/dL Low 32-36 [facility] Comment on above: Order Comment: Comme nts: Home [facility] to Draw Tomorrow Performed By: #### L 100.0100, L500.2500, L503.7505 ####[facility] [address] [place], [address] MCV (RBC) [Entitic vol] 89.2 fL Normal 80-94 [facility] Comment on above: Order Comment: Comme nts: Home Health to Draw Tomorrow Performed By: #### L 100.0100, L500.2500, L503.7505 ####[facility] [address] [place], [address] Monocytes/100 WBC (Bld) 8.9 % Normal 0-10 [facility] Comment on above: Order Comment: Comme nts: Home Health to Draw Tomorrow Performed By: #### L 100.0100, L500.2500, L503.7505 ####[facility] [address] [place], [address] Neutrophils/100 WBC (Bld) 79.4 % High 47-70 [facility] Comment on above: Order Comment: Comme nts: Home Health to Draw Tomorrow Performed By: #### L 100.0100, L500.2500, L503.7505 ####[facility] [address] [place], [address] Nucleated RBC (Bld) [#/Vol] 0 10*3/uL Normal 0-5 [facility] Comment on above: Order Comment: Comme nts: Home Health to Draw Tomorrow Performed By: #### L 100.0100, L500.2500, L503.7505 ####[facility] [address] [place], [address] Platelet mean volume (Bld) [Entitic vol] 10.6 fL Normal 6.2-12.0 [facility] Comment on above: Order Comment: Comme nts: Home [facility] to Draw Tomorrow Performed By: #### L 100.0100, L500.2500, L503.7505 ####[facility] [address] [place], [address] Platelets (Bld) [#/Vol] 210 10*3/uL Normal 150-450 [facility] Comment on above: Order Comment: Comme nts: Home Health to Draw Tomorrow Performed By: #### L 100.0100, L500.2500, L503.7505 ####[facility] [address] [place], [address] RBC (Bld) [#/Vol] 3.43 10*6/uL Low 4.6-6.2 [facility] Comment on above: Order Comment: Comme nts: Home Health to Draw Tomorrow Performed By: #### L 100.0100, L500.2500, L503.7505 ####[facility] [address] [place], [address] RDW SD 55.3 fl High 35.1-43.9 [facility] Comment on above: Order Comment: Comme nts: Home Health to Draw Tomorrow Performed By: #### L 100.0100, L500.2500, L503.7505 ####[facility] [address] [place], [address] WBC (Bld) [#/Vol] 8.7 10*3/uL Normal 4.4-11.0 [facility] Comment on above: Order Comment: Comme nts: Home Health to Draw Tomorrow Performed By: #### L 100.0100, L500.2500, L503.7505 ####[facility] [address] [place], [address] Carbon dioxide, total [Moles /volume] in Central venous bloodOrdered By: Leslie Arriaga on 04-02-2025 CO2 [Moles/Vol] 27.8 mmol/L 21.0-32.0 [facility] Chloride assayOrdered By: Linsey Arriaga on 04-02-2025 Chloride [Moles/Vol] 99 mmol/L 98-108 [facility] Eosinophil percentageOrdered By: Leslie Arriaga on 04-02-2025 Eosinophils/100 WBC (Bld) 0.8 % 0-5 [facility] Erythrocyte distribution wid th ratioOrdered By: Leslie Arriaga on 04-02-2025 Erythrocyte distribution width (RBC) [Ratio] 17.1 % High 11.6-14.6 [facility] Erythrocyte distribution wid th standard deviationOrdered By: Leslie Arriaga on 04-02-2025 Erythrocyte distribution width (RBC) [Ratio] 55.3 fl High 35.1-43.9 [facility] Glomerular filtration rate ( GFR) estimation/1.73 sq m using serum, plasma, or whole bOrdered By: Leslie Arriaga on 04-02-2025 GFR/1.73 sq M.predicted among non-blacks MDRD (S/P/Bld) [Vol rate/Area] 31 mL/min/{1.73_m2} Low >60 [facility] Comment on above: mL/min/1.73m2 CKD-EP I Creatinine Equation (2020) Hematocrit Auto (Bld) [Volum e fraction]Ordered By: Leslie Arriaga on 04-02-2025 Hematocrit (Bld) [Volume fraction] 30.6 % Low 40-54 [facility] Hemoglobin measurementOrdere d By: Leslie Arriaga on 04-02-2025 Hemoglobin (Bld) [Mass/Vol] 9.2 g/dL Low 13.0-16.5 [facility] Immature granulocytes/100 WB C Auto (Bld)Ordered By: Leslie Arriaga on 04-02-2025 Immature granulocytes/100 WBC (Bld) 0.600 % 0.0-0.9 [facility] Comment on above: IG% - Immature Granu locytes (promyelocytes, myelocytes and metamyelocytes) > 1% indicates that a LEFT SHIFT is Present. MCV (mean corpuscular volume ) determinationOrdered By: Leslie Arriaga on 04-02-2025 MCV (RBC) [Entitic vol] 89.2 fL 80-94 [facility] Mean corpuscular hemoglobin (MCH) determinationOrdered By: Leslie Arriaga on 04-02-2025 MCH (RBC) [Entitic mass] 26.8 pg Low 27.0-32.0 [facility] Mean corpuscular hemoglobin concentration (MCHC) determinationOrdered By: Leslie Arriaga on 04-02-2025 MCHC (RBC) [Mass/Vol] 30.1 g/dL Low 32-36 [facility] Mean platelet volume determi nationOrdered By: eLslie Arriaga on 04-02-2025 Platelet mean volume (Bld) [Entitic vol] 10.6 fL 6.2-12.0 [facility] Monocyte percentageOrdered B y: Leslie Arriaga on 04-02-2025 Monocytes/100 WBC (Bld) 8.9 % 0-10 [facility] Natriuretic peptide.B prohor girish N-Terminal [Mass/volume] in Serum or PlasmaOrdered By: Leslie Arriaga on 04-02-2025 Natriuretic peptide.B prohormone N-Terminal [Mass/Vol] 2526 pg/mL High <1800 [facility] Comment on above: Heart Failure Unlike ly: < 300 pg/mLHeart Failure Likely< 50 Years: > 450 pg/mL50-75 Years: > 900 pg/mL>75 Years: > 1800 pg/mL Neutrophil percentageOrdered By: Leslie Arriaga on 04-02-2025 Neutrophils/100 WBC (Bld) 79.4 % High 47-70 [facility] Nucleated red blood cell per centageOrdered By: Leslie Arriaga on 04-02-2025 Nucleated RBC/100 WBC (Bld) [Ratio] 0 % 0-5 [facility] Platelet countOrdered By: Linsey Arriaga on 04-02-2025 Platelets (Bld) [#/Vol] 210 10*3/uL 150-450 [facility] Potassium measurement (mass/ volume)Ordered By: Leslie Arriaga on 04-02-2025 Potassium (Unsp spec) [Mass/Vol] 5.6 mmol/L High 3.3-5.1 [facility] Pro- Brain NATRIURETIC PEPTI Adrienne 04-02-2025 Natriuretic peptide B (Bld) [Mass/Vol] 2526 pg/mL High <=1800 [facility] Comment on above: Order Comment: Comme nts: Home Health to Draw Tomorrow Result Comment: Hear t Failure Unlikely: < 300 pg/mLHeart Failure Likely< 50 Years: > 450 pg/mL50-75 Years: > 900 pg/mL>75 Years: > 1800 pg/mL Performed By: #### L 100.0100, L500.2500, L503.7505 ####[facility] [address] [place], [address] RBC Auto (Bld) [#/Vol]Ordere d By: Leslie Arriaga on 04-02-2025 RBC (Bld) [#/Vol] 3.43 10*6/uL Low 4.6-6.2 [facility] Serum creatinine measurement (mass/volume)Ordered By: Leslie Arriaga on 04-02-2025 Creatinine [Mass/Vol] 2.13 mg/dL High 0.70-1.20 [facility] Serum glucose measurement (m ass/volume)Ordered By: Leslie Arriaga on 04-02-2025 Glucose [Mass/Vol] 185 mg/dL High 70-99 [facility] Serum or plasma calcium kingsley urement (mass/volume)Ordered By: Leslie Arriaga on 04-02-2025 Calcium [Mass/Vol] 9.2 mg/dL 7.6-11.0 [facility] Serum or plasma urea nitroge n measurement (mass/volume)Ordered By: Leslie Arriaga on 04-02-2025 Urea nitrogen [Mass/Vol] 35 mg/dL High 4-19 [facility] Sodium levelOrdered By: Brian Arriaga on 04-02-2025 Sodium [Moles/Vol] 137 mmol/L 133-145 [facility] White blood cell (WBC) count Ordered By: Leslie Arriaga on 04-02-2025 WBC (Bld) [#/Vol] 8.7 10*3/uL 4.4-11.0 [facility] Absolute lymphocyte countOrd ered By: Tonio Fajardo on 03-18-2025 Lymphocytes Auto (Unsp spec) [#/Vol] 0.88 10*3/uL 0.83-4.51 [facility] Absolute neutrophil countOrd ered By: Tonio Fajardo on 03-18-2025 Neutrophils (Bld) [#/Vol] 5.9 10*3/uL 2.0-7.7 [facility] Anion gap in Serum or Plasma Ordered By: Tonio Fajardo on 03-18-2025 Anion gap [Moles/Vol] 11 mmol/L 5- [facility] Automated lymphocyte count a s percentage of total leukocytesOrdered By: Tonio Fajardo on 03-18-2025 Lymphocytes/100 WBC Auto (Unsp spec) 11.2 % Low 19-41 [facility] BUN/creatinine ratioOrdered By: Tonio Fajardo on 03-18-2025 Urea nitrogen/Creatinine [Mass ratio] 14.8 mg/mg - [facility] Basic Metabolic Profile (BMP )on 03-18-2025 BUN/CRE 14.8 RATIO Normal - [facility] Comment on above: Performed By: #### L 100.0100, L500.2500 ####[facility] [address] [place], [address] Calcium [Mass/Vol] 9.5 mg/dL Normal 7.6-11.0 [facility] Comment on above: Performed By: #### L 100.0100, L500.2500 ####[facility] [address] [place], [address] Chloride [Moles/Vol] 99 mmol/L Normal 98-108 [facility] Comment on above: Performed By: #### L 100.0100, L500.2500 ####[facility] [address] [place], [address] CO2 [Moles/Vol] 26.7 mmol/L Normal 21.0-32.0 [facility] Comment on above: Performed By: #### L 100.0100, L500.2500 ####[facility] [address] [place], [address] Creatinine [Mass/Vol] 1.59 mg/dL High 0.70-1.20 [facility] Comment on above: Performed By: #### L 100.0100, L500.2500 ####[facility] [address] [place], [address] GAP 11 Normal 5-15 [facility] Comment on above: Performed By: #### L 100.0100, L500.2500 ####[facility] [address] [place], [address] GFR/1.73 sq M.predicted among non-blacks MDRD (S/P/Bld) [Vol rate/Area] 44 mL/min/{1.73_m2} Low >60 [facility] Comment on above: Result Comment: mL/m in/1.73m2 CKD-EPI Creatinine Equation (2020) Performed By: #### L 100.0100, L500.2500 ####[facility] [address] [place], [address] Glucose [Mass/Vol] 223 mg/dL High 70-99 [facility] Comment on above: Performed By: #### L 100.0100, L500.2500 ####[facility] [address] [place], [address] Potassium [Moles/Vol] 5.2 mmol/L High 3.3-5.1 [facility] Comment on above: Performed By: #### L 100.0100, L500.2500 ####[facility] [address] [place], [address] Sodium [Moles/Vol] 137 mmol/L Normal 133-145 [facility] Comment on above: Performed By: #### L 100.0100, L500.2500 ####[facility] [address] [place], [address] Urea nitrogen [Mass/Vol] 24 mg/dL High 4-19 [facility] Comment on above: Performed By: #### L 100.0100, L500.2500 ####[facility] [address] [place], [address] Basophil percentageOrdered B y: Tonio Fajardo on 03-18-2024 Basophils/100 WBC (Bld) 0.5 % 0-1 [facility] CBC W/Diff, Automatedon 02-19-2024 Absolute Lymph 0.88 X10 3/uL Normal 0.83-4.51 [facility] Comment on above: Performed By: #### L 100.0100, L500.2500 ####[facility] [address] [place], [address] Absolute Neut 5.9 X10 3/uL Normal 2.0-7.7 [facility] Comment on above: Performed By: #### L 100.0100, L500.2500 ####[facility] [address] [place], [address] Basophils/100 WBC (Bld) 0.5 % Normal 0-1 [facility] Comment on above: Performed By: #### L 100.0100, L500.2500 ####[facility] [address] [place], [address] Eosinophils/100 WBC (Bld) 3.1 % Normal 0-5 [facility] Comment on above: Performed By: #### L 100.0100, L500.2500 ####[facility] [address] [place], [address] Erythrocyte distribution width (RBC) [Ratio] 16.4 % High 11.6-14.6 [facility] Comment on above: Performed By: #### L 100.0100, L500.2500 ####[facility] [address] [place], [address] Hematocrit (Bld) [Volume fraction] 32.6 % Low 40-54 [facility] Comment on above: Performed By: #### L 100.0100, L500.2500 ####[facility] [address] [place], [address] Hemoglobin (Bld) [Mass/Vol] 9.7 g/dL Low 13.0-16.5 [facility] Comment on above: Performed By: #### L 100.0100, L500.2500 ####[facility] [address] [place], [address] IG% 1.100 High 0.0-0.9 [facility] Comment on above: Result Comment: IG% - Immature Granulocytes (promyelocytes, myelocytes andmetamyelocytes) > 1% indicates that a LEFT SHIFT is Present. Performed By: #### L 100.0100, L500.2500 ####[facility] [address] [place], [address] Lymphocytes/100 WBC (Bld) 11.2 % Low 19-41 [facility] Comment on above: Performed By: #### L 100.0100, L500.2500 ####[facility] [address] [place], [address] MCH (RBC) [Entitic mass] 26.8 pg Low 27.0-32.0 [facility] Comment on above: Performed By: #### L 100.0100, L500.2500 ####[facility] [address] [place], [address] MCHC (RBC) [Mass/Vol] 29.8 g/dL Low 32-36 [facility] Comment on above: Performed By: #### L 100.0100, L500.2500 ####[facility] [address] [place], [address] MCV (RBC) [Entitic vol] 90.1 fL Normal 80-94 [facility] Comment on above: Performed By: #### L 100.0100, L500.2500 ####[facility] [address] [place], [address] Monocytes/100 WBC (Bld) 9.4 % Normal 0-10 [facility] Comment on above: Performed By: #### L 100.0100, L500.2500 ####[facility] [address] [place], [address] Neutrophils/100 WBC (Bld) 74.7 % High 47-70 [facility] Comment on above: Performed By: #### L 100.0100, L500.2500 ####[facility] [address] [place], [address] Nucleated RBC (Bld) [#/Vol] 0 10*3/uL Normal 0-5 [facility] Comment on above: Performed By: #### L 100.0100, L500.2500 ####[facility] [address] [place], [address] Platelet mean volume (Bld) [Entitic vol] 10.4 fL Normal 6.2-12.0 [facility] Comment on above: Performed By: #### L 100.0100, L500.2500 ####[facility] [address] [place], [address] Platelets (Bld) [#/Vol] 252 10*3/uL Normal 150-450 [facility] Comment on above: Performed By: #### L 100.0100, L500.2500 ####[facility] [address] [place], [address] RBC (Bld) [#/Vol] 3.62 10*6/uL Low 4.6-6.2 [facility] Comment on above: Performed By: #### L 100.0100, L500.2500 ####[facility] [address] [place], [address] RDW SD 53.8 fl High 35.1-43.9 [facility] Comment on above: Performed By: #### L 100.0100, L500.2500 ####[facility] [address] [place], [address] WBC (Bld) [#/Vol] 7.9 10*3/uL Normal 4.4-11.0 [facility] Comment on above: Performed By: #### L 100.0100, L500.2500 ####[facility] [address] [place], [address] Carbon dioxide, total [Moles /volume] in Central venous bloodOrdered By: Tonio Fajardo on 03-18-2025 CO2 [Moles/Vol] 26.7 mmol/L 21.0-32.0 [facility] Chloride assayOrdered By: Min Fajardo on 03-18-2025 Chloride [Moles/Vol] 99 mmol/L 98-108 [facility] Eosinophil percentageOrdered By: Tonio Fajardo on 03-18-2025 Eosinophils/100 WBC (Bld) 3.1 % 0-5 [facility] Erythrocyte distribution wid th ratioOrdered By: Tonio Fajardo on 03-18-2025 Erythrocyte distribution width (RBC) [Ratio] 16.4 % High 11.6-14.6 [facility] Erythrocyte distribution wid th standard deviationOrdered By: Tonio Fajardo on 03-18-2025 Erythrocyte distribution width (RBC) [Ratio] 53.8 fl High 35.1-43.9 [facility] Glomerular filtration rate ( GFR) estimation/1.73 sq m using serum, plasma, or whole bOrdered By: Tonio Fajardo on 03-18-2025 GFR/1.73 sq M.predicted among non-blacks MDRD (S/P/Bld) [Vol rate/Area] 44 mL/min/{1.73_m2} Low >60 [facility] Comment on above: mL/min/1.73m2 CKD-EP I Creatinine Equation (2020) Hematocrit Auto (Bld) [Volum e fraction]Ordered By: Tonio Fajardo on 03-18-2025 Hematocrit (Bld) [Volume fraction] 32.6 % Low 40-54 [facility] Hemoglobin measurementOrdere d By: Tonio Fajardo on 03-18-2025 Hemoglobin (Bld) [Mass/Vol] 9.7 g/dL Low 13.0-16.5 [facility] Immature granulocytes/100 WB C Auto (Bld)Ordered By: Tonio Fajardo on 03-18-2025 Immature granulocytes/100 WBC (Bld) 1.100 % High 0.0-0.9 [facility] Comment on above: IG% - Immature Granu locytes (promyelocytes, myelocytes and metamyelocytes) > 1% indicates that a LEFT SHIFT is Present. MCV (mean corpuscular volume ) determinationOrdered By: Tonio Fajardo on 03-18-2025 MCV (RBC) [Entitic vol] 90.1 fL 80-94 [facility] Mean corpuscular hemoglobin (MCH) determinationOrdered By: Tonio Fajardo on 03-18-2025 MCH (RBC) [Entitic mass] 26.8 pg Low 27.0-32.0 [facility] Mean corpuscular hemoglobin concentration (MCHC) determinationOrdered By: Tonio Fajardo on 03-18-2025 MCHC (RBC) [Mass/Vol] 29.8 g/dL Low 32-36 [facility] Mean platelet volume determi nationOrdered By: Tonio Fajardo on 03-18-2025 Platelet mean volume (Bld) [Entitic vol] 10.4 fL 6.2-12.0 [facility] Monocyte percentageOrdered B y: Tonio Fajardo on 03-18-2025 Monocytes/100 WBC (Bld) 9.4 % 0-10 [facility] Neutrophil percentageOrdered By: Tonio Fajardo on 03-18-2025 Neutrophils/100 WBC (Bld) 74.7 % High 47-70 [facility] Nucleated red blood cell per centageOrdered By: Tonio Fajardo on 03-18-2025 Nucleated RBC/100 WBC (Bld) [Ratio] 0 % 0-5 [facility] Platelet countOrdered By: Min Fajardo on 03-18-2025 Platelets (Bld) [#/Vol] 252 10*3/uL 150-450 [facility] Potassium measurement (mass/ volume)Ordered By: Tonio Fajardo on 03-18-2025 Potassium (Unsp spec) [Mass/Vol] 5.2 mmol/L High 3.3-5.1 [facility] RBC Auto (Bld) [#/Vol]Ordere d By: Tonio Fajardo on 03-18-2025 RBC (Bld) [#/Vol] 3.62 10*6/uL Low 4.6-6.2 [facility] Serum creatinine measurement (mass/volume)Ordered By: Tonio Fajardo on 03-18-2025 Creatinine [Mass/Vol] 1.59 mg/dL High 0.70-1.20 [facility] Serum glucose measurement (m ass/volume)Ordered By: Tonio Fajardo on 03-18-2025 Glucose [Mass/Vol] 223 mg/dL High 70-99 [facility] Serum or plasma calcium kingsley urement (mass/volume)Ordered By: Tonio Fajardo on 03-18-2025 Calcium [Mass/Vol] 9.5 mg/dL 7.6-11.0 [facility] Serum or plasma urea nitroge n measurement (mass/volume)Ordered By: Tonio Fajardo on 03-18-2025 Urea nitrogen [Mass/Vol] 24 mg/dL High 12-06 [facility] Sodium levelOrdered By: Tonio Fajardo on 03-18-2025 Sodium [Moles/Vol] 137 mmol/L 133-145 [facility] White blood cell (WBC) count Ordered By: Tonio Fajardo on 03-18-2025 WBC (Bld) [#/Vol] 7.9 10*3/uL 4.4-11.0 [facility] Cardiology Visit Reporton Cardiology Visit Report Normal [facility] Emergency Department Summary on 03-15-2025 Emergency Department Summary Normal [facility] Basic Metabolic Profile (BMP )on 03-11-2025 BUN Normal - [facility] Comment on above: Result Comment: Canc elled via OM: Order cancelled - Patient discharged Performed By: #### L 500.2500, L100.0100 ####[facility] [address] [place], [address] BUN/CRE Normal 10-20 [facility] Comment on above: Result Comment: Canc elled via OM: Order cancelled - Patient discharged Performed By: #### L 500.2500, L100.0100 ####[facility] [address] [place], [address] Calcium Normal 7.6-11.0 [facility] Comment on above: Result Comment: Canc elled via OM: Order cancelled - Patient discharged Performed By: #### L 500.2500, L100.0100 ####[facility] [address] [place], [address] CL Normal 98-108 [facility] Comment on above: Result Comment: Canc elled via OM: Order cancelled - Patient discharged Performed By: #### L 500.2500, L100.0100 ####[facility] [address] [place], [address] CO2 Normal 21.0-32.0 [facility] Comment on above: Result Comment: Canc elled via OM: Order cancelled - Patient discharged Performed By: #### L 500.2500, L100.0100 ####[facility] [address] [place], [address] CREAT,SERUM Normal 0.70-1.20 [facility] Comment on above: Result Comment: Canc elled via OM: Order cancelled - Patient discharged Performed By: #### L 500.2500, L100.0100 ####[facility] [address] [place], [address] eGFR Normal >60 [facility] Comment on above: Result Comment: Canc elled via OM: Order cancelled - Patient discharged Performed By: #### L 500.2500, L100.0100 ####[facility] [address] [place], [address] GAP Normal 5-15 [facility] Comment on above: Result Comment: Canc elled via OM: Order cancelled - Patient discharged Performed By: #### L 500.2500, L100.0100 ####[facility] [address] [place], [address] GLU Normal 70-99 [facility] Comment on above: Result Comment: Canc elled via OM: Order cancelled - Patient discharged Performed By: #### L 500.2500, L100.0100 ####[facility] [address] [place], [address] Potassium Normal 3.3-5.1 [facility] Comment on above: Result Comment: Canc elled via OM: Order cancelled - Patient discharged Performed By: #### L 500.2500, L100.0100 ####[facility] [address] [place], [address] Basic Metabolic Profile (BMP) Normal 133-145 [facility] Comment on above: Result Comment: Canc elled via OM: Order cancelled - Patient discharged Performed By: #### L 500.2500, L100.0100 ####[facility] [address] [place], [address] CBC W/Diff, Automatedon 07-2 Absolute Neut Normal 2.0-7.7 [facility] Comment on above: Result Comment: Canc elled via OM: Order cancelled - Patient discharged Performed By: #### L 500.2500, L100.0100 ####[facility] [address] [place], [address] HCT Normal 40-54 [facility] Comment on above: Result Comment: Canc elled via OM: Order cancelled - Patient discharged Performed By: #### L 500.2500, L100.0100 ####[facility] [address] [place], [address] HGB Normal 13.0-16.5 [facility] Comment on above: Result Comment: Canc elled via OM: Order cancelled - Patient discharged Performed By: #### L 500.2500, L100.0100 ####[facility] [address] [place], [address] MCH Normal 27.0-32.0 [facility] Comment on above: Result Comment: Canc elled via OM: Order cancelled - Patient discharged Performed By: #### L 500.2500, L100.0100 ####[facility] [address] [place], [address] MCHC Normal 32-36 [facility] Comment on above: Result Comment: Canc elled via OM: Order cancelled - Patient discharged Performed By: #### L 500.2500, L100.0100 ####[facility] [address] [place], [address] MCV Normal 80-94 [facility] Comment on above: Result Comment: Canc elled via OM: Order cancelled - Patient discharged Performed By: #### L 500.2500, L100.0100 ####[facility] [address] [place], [address] NEUT% Normal 47-70 [facility] Comment on above: Result Comment: Canc elled via OM: Order cancelled - Patient discharged Performed By: #### L 500.2500, L100.0100 ####[facility] [address] [place], [address] PLT Normal 150-450 [facility] Comment on above: Result Comment: Canc elled via OM: Order cancelled - Patient discharged Performed By: #### L 500.2500, L100.0100 ####[facility] [address] [place], [address] RBC Normal 4.6-6.2 [facility] Comment on above: Result Comment: Canc elled via OM: Order cancelled - Patient discharged Performed By: #### L 500.2500, L100.0100 ####[facility] [address] [place], [address] RDW CV Normal 11.6-14.6 [facility] Comment on above: Result Comment: Canc elled via OM: Order cancelled - Patient discharged Performed By: #### L 500.2500, L100.0100 ####[facility] [address] [place], [address] RDW SD Normal 35.1-43.9 [facility] Comment on above: Result Comment: Canc elled via OM: Order cancelled - Patient discharged Performed By: #### L 500.2500, L100.0100 ####[facility] [address] [place], [address] WBC Normal 4.4-11.0 [facility] Comment on above: Result Comment: Canc elled via OM: Order cancelled - Patient discharged Performed By: #### L 500.2500, L100.0100 ####[facility] [address] [place], [address] Basic Metabolic Profile (BMP )on 03-10-2025 BUN Normal 4-19 [facility] Comment on above: Result Comment: Canc elled via OM: Order cancelled - Patient discharged Performed By: #### L 500.2500, L100.0100 ####[facility] [address] [place], [address] BUN/CRE Normal 10-20 [facility] Comment on above: Result Comment: Canc elled via OM: Order cancelled - Patient discharged Performed By: #### L 500.2500, L100.0100 ####[facility] [address] [place], [address] Calcium Normal 7.6-11.0 [facility] Comment on above: Result Comment: Canc elled via OM: Order cancelled - Patient discharged Performed By: #### L 500.2500, L100.0100 ####[facility] [address] [place], [address] CL Normal 98-108 [facility] Comment on above: Result Comment: Canc elled via OM: Order cancelled - Patient discharged Performed By: #### L 500.2500, L100.0100 ####[facility] [address] [place], [address] CO2 Normal 21.0-32.0 [facility] Comment on above: Result Comment: Canc elled via OM: Order cancelled - Patient discharged Performed By: #### L 500.2500, L100.0100 ####[facility] [address] [place], [address] CREAT,SERUM Normal 0.70-1.20 [facility] Comment on above: Result Comment: Canc elled via OM: Order cancelled - Patient discharged Performed By: #### L 500.2500, L100.0100 ####[facility] [address] [place], [address] eGFR Normal >60 [facility] Comment on above: Result Comment: Canc elled via OM: Order cancelled - Patient discharged Performed By: #### L 500.2500, L100.0100 ####[facility] [address] [place], [address] GAP Normal 5-15 [facility] Comment on above: Result Comment: Canc elled via OM: Order cancelled - Patient discharged Performed By: #### L 500.2500, L100.0100 ####[facility] [address] [place], [address] GLU Normal 70-99 [facility] Comment on above: Result Comment: Canc elled via OM: Order cancelled - Patient discharged Performed By: #### L 500.2500, L100.0100 ####[facility] [address] [place], [address] Potassium Normal 3.3-5.1 [facility] Comment on above: Result Comment: Canc elled via OM: Order cancelled - Patient discharged Performed By: #### L 500.2500, L100.0100 ####[facility] [address] [place], [address] Basic Metabolic Profile (BMP) Normal 133-145 [facility] Comment on above: Result Comment: Canc elled via OM: Order cancelled - Patient discharged Performed By: #### L 500.2500, L100.0100 ####[facility] [address] [place], [address] CBC W/Diff, Automatedon 07-2 Absolute Neut Normal 2.0-7.7 [facility] Comment on above: Result Comment: Canc elled via OM: Order cancelled - Patient discharged Performed By: #### L 500.2500, L100.0100 ####[facility] [address] [place], [address] HCT Normal 40-54 [facility] Comment on above: Result Comment: Canc elled via OM: Order cancelled - Patient discharged Performed By: #### L 500.2500, L100.0100 ####[facility] [address] [place], [address] HGB Normal 13.0-16.5 [facility] Comment on above: Result Comment: Canc elled via OM: Order cancelled - Patient discharged Performed By: #### L 500.2500, L100.0100 ####[facility] [address] [place], [address] MCH Normal 27.0-32.0 [facility] Comment on above: Result Comment: Canc elled via OM: Order cancelled - Patient discharged Performed By: #### L 500.2500, L100.0100 ####[facility] [address] [place], [address] MCHC Normal 32-36 [facility] Comment on above: Result Comment: Canc elled via OM: Order cancelled - Patient discharged Performed By: #### L 500.2500, L100.0100 ####[facility] [address] [place], [address] MCV Normal 80-94 [facility] Comment on above: Result Comment: Canc elled via OM: Order cancelled - Patient discharged Performed By: #### L 500.2500, L100.0100 ####[facility] [address] [place], [address] NEUT% Normal 47-70 [facility] Comment on above: Result Comment: Canc elled via OM: Order cancelled - Patient discharged Performed By: #### L 500.2500, L100.0100 ####[facility] [address] [place], [address] PLT Normal 150-450 [facility] Comment on above: Result Comment: Canc elled via OM: Order cancelled - Patient discharged Performed By: #### L 500.2500, L100.0100 ####[facility] [address] [place], [address] RBC Normal 4.6-6.2 [facility] Comment on above: Result Comment: Canc elled via OM: Order cancelled - Patient discharged Performed By: #### L 500.2500, L100.0100 ####[facility] [address] [place], [address] RDW CV Normal 11.6-14.6 [facility] Comment on above: Result Comment: Canc elled via OM: Order cancelled - Patient discharged Performed By: #### L 500.2500, L100.0100 ####[facility] [address] [place], [address] RDW SD Normal 35.1-43.9 [facility] Comment on above: Result Comment: Canc elled via OM: Order cancelled - Patient discharged Performed By: #### L 500.2500, L100.0100 ####[facility] [address] [place], [address] WBC Normal 4.4-11.0 [facility] Comment on above: Result Comment: Canc elled via OM: Order cancelled - Patient discharged Performed By: #### L 500.2500, L100.0100 ####[facility] [address] [place], [address] Absolute lymphocyte countOrd ered By: Deric Lantigua on 03-09-2025 Lymphocytes Auto (Unsp spec) [#/Vol] 0.53 10*3/uL Low 0.83-4.51 [facility] Absolute neutrophil countOrd ered By: [facility] Grzegorz on 03-09-2025 Neutrophils (Bld) [#/Vol] 4.0 10*3/uL 2.0-7.7 [facility] Anion gap in Serum or Plasma Ordered By: Dericford Lantigua on 03-09-2025 Anion gap [Moles/Vol] 10 mmol/L 5-15 [facility] Automated lymphocyte count a s percentage of total leukocytesOrdered By: Deric Lantigua on 03-09-2025 Lymphocytes/100 WBC Auto (Unsp spec) 9.7 % Low 19-41 [facility] BUN/creatinine ratioOrdered By: Deric Lantigua on 03-09-2025 Urea nitrogen/Creatinine [Mass ratio] 20.8 mg/mg High 10-20 [facility] Basic Metabolic Profile (BMP )on 03-09-2025 BUN/CRE 20.8 RATIO High - [facility] Comment on above: Performed By: #### L 100.0100, L500.2500 ####[facility] [address] [place], [address] Calcium [Mass/Vol] 9.0 mg/dL Normal 7.6-11.0 [facility] Comment on above: Performed By: #### L 100.0100, L500.2500 ####[facility] [address] [place], [address] Chloride [Moles/Vol] 101 mmol/L Normal 98-108 [facility] Comment on above: Performed By: #### L 100.0100, L500.2500 ####[facility] [address] [place], [address] CO2 [Moles/Vol] 26.6 mmol/L Normal 21.0-32.0 [facility] Comment on above: Performed By: #### L 100.0100, L500.2500 ####[facility] [address] [place], [address] Creatinine [Mass/Vol] 2.41 mg/dL High 0.70-1.20 [facility] Comment on above: Performed By: #### L 100.0100, L500.2500 ####[facility] [address] [place], [address] ECRCL 24.14 ml/min Low 50-250 [facility] Comment on above: Performed By: #### L 100.0100, L500.2500 ####[facility] [address] [place], [address] GAP 10 Normal 5-15 [facility] Comment on above: Performed By: #### L 100.0100, L500.2500 ####[facility] [address] [place], [address] GFR/1.73 sq M.predicted among non-blacks MDRD (S/P/Bld) [Vol rate/Area] 26 mL/min/{1.73_m2} Low >60 [facility] Comment on above: Result Comment: mL/m in/1.73m2 CKD-EPI Creatinine Equation (2020) Performed By: #### L 100.0100, L500.2500 ####[facility] [address] [place], [address] Glucose [Mass/Vol] 118 mg/dL High 70-99 [facility] Comment on above: Performed By: #### L 100.0100, L500.2500 ####[facility] [address] [place], [address] Potassium [Moles/Vol] 4.3 mmol/L Normal 3.3-5.1 [facility] Comment on above: Performed By: #### L 100.0100, L500.2500 ####[facility] [address] [place], [address] Sodium [Moles/Vol] 138 mmol/L Normal 133-145 [facility] Comment on above: Performed By: #### L 100.0100, L500.2500 ####[facility] [address] [place], [address] Urea nitrogen [Mass/Vol] 50 mg/dL High 4-19 [facility] Comment on above: Performed By: #### L 100.0100, L500.2500 ####[facility] [address] [place], [address] Basophil percentageOrdered B y: Deric Lantigua on 03-09-2025 Basophils/100 WBC (Bld) 0.2 % 0-1 [facility] Bedside Glucoseon 03-09-2025 FINGERSTICK GLU 184 mg/dL High 74-106 [facility] Comment on above: Result Comment: KODY GEMENT OF PATIENT CARE PER NURSING PROTOCOL Performed By: #### L 501.080 ####[facility] [address] [place], [address] FINGERSTICK GLU 112 mg/dL High 74-106 [facility] Comment on above: Result Comment: KODY GEMENT OF PATIENT CARE PER NURSING PROTOCOL Performed By: #### L 501.080 ####[facility] [address] [place], [address] CBC W/Diff, Automatedon 07-09 20-2024 Absolute Lymph 0.53 X10 3/uL Low 0.83-4.51 [facility] Comment on above: Performed By: #### L 100.0100, L500.2500 ####[facility] [address] [place], [address] Absolute Neut 4.0 X10 3/uL Normal 2.0-7.7 [facility] Comment on above: Performed By: #### L 100.0100, L500.2500 ####[facility] [address] [place], [address] Basophils/100 WBC (Bld) 0.2 % Normal 0-1 [facility] Comment on above: Performed By: #### L 100.0100, L500.2500 ####[facility] [address] [place], [address] Eosinophils/100 WBC (Bld) 4.8 % Normal 0-5 [facility] Comment on above: Performed By: #### L 100.0100, L500.2500 ####[facility] [address] [place], [address] Erythrocyte distribution width (RBC) [Ratio] 16.3 % High 11.6-14.6 [facility] Comment on above: Performed By: #### L 100.0100, L500.2500 ####[facility] [address] [place], [address] Hematocrit (Bld) [Volume fraction] 29.6 % Low 40-54 [facility] Comment on above: Performed By: #### L 100.0100, L500.2500 ####[facility] [address] [place], [address] Hemoglobin (Bld) [Mass/Vol] 9.3 g/dL Low 13.0-16.5 [facility] Comment on above: Performed By: #### L 100.0100, L500.2500 ####[facility] [address] [place], [address] IG% 0.600 Normal 0.0-0.9 [facility] Comment on above: Result Comment: IG% - Immature Granulocytes (promyelocytes, myelocytes andmetamyelocytes) > 1% indicates that a LEFT SHIFT is Present. Performed By: #### L 100.0100, L500.2500 ####[facility] [address] [place], [address] Lymphocytes/100 WBC (Bld) 9.7 % Low 19-41 [facility] Comment on above: Performed By: #### L 100.0100, L500.2500 ####[facility] [address] [place], [address] MCH (RBC) [Entitic mass] 27.5 pg Normal 27.0-32.0 [facility] Comment on above: Performed By: #### L 100.0100, L500.2500 ####[facility] [address] [place], [address] MCHC (RBC) [Mass/Vol] 31.4 g/dL Low 32-36 [facility] Comment on above: Performed By: #### L 100.0100, L500.2500 ####[facility] [address] [place], [address] MCV (RBC) [Entitic vol] 87.6 fL Normal 80-94 [facility] Comment on above: Performed By: #### L 100.0100, L500.2500 ####[facility] [address] [place], [address] Monocytes/100 WBC (Bld) 12.1 % High 0-10 [facility] Comment on above: Performed By: #### L 100.0100, L500.2500 ####[facility] [address] [place], [address] Neutrophils/100 WBC (Bld) 72.6 % High 47-70 [facility] Comment on above: Performed By: #### L 100.0100, L500.2500 ####[facility] [address] [place], [address] Nucleated RBC (Bld) [#/Vol] 0 10*3/uL Normal 0-5 [facility] Comment on above: Performed By: #### L 100.0100, L500.2500 ####[facility] [address] [place], [address] Platelet mean volume (Bld) [Entitic vol] 10.0 fL Normal 6.2-12.0 [facility] Comment on above: Performed By: #### L 100.0100, L500.2500 ####[facility] [address] [place], [address] Platelets (Bld) [#/Vol] 162 10*3/uL Normal 150-450 [facility] Comment on above: Performed By: #### L 100.0100, L500.2500 ####[facility] [address] [place], [address] RBC (Bld) [#/Vol] 3.38 10*6/uL Low 4.6-6.2 [facility] Comment on above: Performed By: #### L 100.0100, L500.2500 ####[facility] [address] [place], [address] RDW SD 51.8 fl High 35.1-43.9 [facility] Comment on above: Performed By: #### L 100.0100, L500.2500 ####[facility] [address] [place], [address] WBC (Bld) [#/Vol] 5.5 10*3/uL Normal 4.4-11.0 [facility] Comment on above: Performed By: #### L 100.0100, L500.2500 ####[facility] [address] [place], [place], [id number] Carbon dioxide, total [Moles /volume] in Central venous bloodOrdered By: Deric Lantigua on 03-09-2025 CO2 [Moles/Vol] 26.6 mmol/L 21.0-32.0 [facility] Chloride assayOrdered By: Silvia Lantigua on 03-09-2025 Chloride [Moles/Vol] 101 mmol/L 98-108 [facility] Discharge Instructionon 02-18 Discharge Instruction Normal [facility] Eosinophil percentageOrdered By: Deric Lantigua on 03-09-2025 Eosinophils/100 WBC (Bld) 4.8 % 0-5 [facility] Erythrocyte distribution wid th ratioOrdered By: Deric Lantigua on 03-09-2025 Erythrocyte distribution width (RBC) [Ratio] 16.3 % High 11.6-14.6 [facility] Erythrocyte distribution wid th standard deviationOrdered By: Deric Lantigua on 03-09-2025 Erythrocyte distribution width (RBC) [Ratio] 51.8 fl High 35.1-43.9 [facility] Glomerular filtration rate ( GFR) estimation/1.73 sq m using serum, plasma, or whole bOrdered By: Deric Lantigua on 03-09-2025 GFR/1.73 sq M.predicted among non-blacks MDRD (S/P/Bld) [Vol rate/Area] 26 mL/min/{1.73_m2} Low >60 [facility] Comment on above: mL/min/1.73m2 CKD-EP I Creatinine Equation (2020) Glucose measurement at bedsi deOrdered By: Deric Lantigua on 03-09-2025 Glucose [Mass/Vol] 184 mg/dL High 74-106 [facility] Comment on above: MANAGEMENT OF PATIEN T CARE PER NURSING PROTOCOL Hematocrit Auto (Bld) [Volum e fraction]Ordered By: Deric Lantigua on 03-09-2025 Hematocrit (Bld) [Volume fraction] 29.6 % Low 40-54 [facility] Hemoglobin measurementOrdere d By: Deric Lantigua on 03-09-2025 Hemoglobin (Bld) [Mass/Vol] 9.3 g/dL Low 13.0-16.5 [facility] Immature granulocytes/100 WB C Auto (Bld)Ordered By: Deric Lantigua on 03-09-2025 Immature granulocytes/100 WBC (Bld) 0.600 % 0.0-0.9 [facility] Comment on above: IG% - Immature Granu locytes (promyelocytes, myelocytes and metamyelocytes) > 1% indicates that a LEFT SHIFT is Present. MCV (mean corpuscular volume ) determinationOrdered By: Deric Lantigua on 03-09-2025 MCV (RBC) [Entitic vol] 87.6 fL 80-94 [facility] Mean corpuscular hemoglobin (MCH) determinationOrdered By: Deric Lantigua on 03-09-2025 MCH (RBC) [Entitic mass] 27.5 pg 27.0-32.0 [facility] Mean corpuscular hemoglobin concentration (MCHC) determinationOrdered By: Deric Lantigua on 03-09-2025 MCHC (RBC) [Mass/Vol] 31.4 g/dL Low 32-36 [facility] Mean platelet volume determi nationOrdered By: Deric Lantigua on 03-09-2025 Platelet mean volume (Bld) [Entitic vol] 10.0 fL 6.2-12.0 [facility] Monocyte percentageOrdered B y: Deric Lantigua on 03-09-2025 Monocytes/100 WBC (Bld) 12.1 % High 0-10 [facility] Neutrophil percentageOrdered By: Deric Lantigua on 03-09-2025 Neutrophils/100 WBC (Bld) 72.6 % High 47-70 [facility] Nucleated red blood cell per centageOrdered By: Deric Lantigua on 03-09-2025 Nucleated RBC/100 WBC (Bld) [Ratio] 0 % 0-5 [facility] Platelet countOrdered By: Silvia Lantigua on 03-09-2025 Platelets (Bld) [#/Vol] 162 10*3/uL 150-450 [facility] Potassium measurement (mass/ volume)Ordered By: Deric Lantigua on 03-09-2025 Potassium (Unsp spec) [Mass/Vol] 4.3 mmol/L 3.3-5.1 [facility] RBC Auto (Bld) [#/Vol]Ordere d By: Deric Lantigua on 03-09-2025 RBC (Bld) [#/Vol] 3.38 10*6/uL Low 4.6-6.2 [facility] Serum creatinine measurement (mass/volume)Ordered By: Deric Lantigua on 03-09-2025 Creatinine [Mass/Vol] 2.41 mg/dL High 0.70-1.20 [facility] Serum glucose measurement (m ass/volume)Ordered By: Deric Lantigua on 03-09-2025 Glucose [Mass/Vol] 118 mg/dL High 70-99 [facility] Serum or plasma calcium kingsley urement (mass/volume)Ordered By: Deric Lantigua on 03-09-2025 Calcium [Mass/Vol] 9.0 mg/dL 7.6-11.0 [facility] Serum or plasma urea nitroge n measurement (mass/volume)Ordered By: Deric Lantigua on 03-09-2025 Urea nitrogen [Mass/Vol] 50 mg/dL High 4-19 [facility] Sodium levelOrdered By: Mikki Lantigua on 03-09-2025 Sodium [Moles/Vol] 138 mmol/L 133-145 [facility] White blood cell (WBC) count Ordered By: Deric Lantigua on 03-09-2025 WBC (Bld) [#/Vol] 5.5 10*3/uL 4.4-11.0 [facility] Basic Metabolic Profile (BMP )on 03-08-2025 BUN/CRE 19.9 RATIO Normal 10-20 [facility] Comment on above: Performed By: #### L 500.2500 ####[facility] [address] [place], [address] Calcium [Mass/Vol] 8.8 mg/dL Normal 7.6-11.0 [facility] Comment on above: Performed By: #### L 500.2500 ####[facility] [address] [place], [address] Chloride [Moles/Vol] 99 mmol/L Normal 98-108 [facility] Comment on above: Performed By: #### L 500.2500 ####[facility] [address] [place], [address] CO2 [Moles/Vol] 27.0 mmol/L Normal 21.0-32.0 [facility] Comment on above: Performed By: #### L 500.2500 ####[facility] [address] [place], [address] Creatinine [Mass/Vol] 3.11 mg/dL High 0.70-1.20 [facility] Comment on above: Performed By: #### L 500.2500 ####[facility] [address] [place], [address] ECRCL 17.10 ml/min Low 50-250 [facility] Comment on above: Performed By: #### L 500.2500 ####[facility] [address] [place], [address] GAP 10 Normal 5-15 [facility] Comment on above: Performed By: #### L 500.2500 ####[facility] [address] [place], [address] GFR/1.73 sq M.predicted among non-blacks MDRD (S/P/Bld) [Vol rate/Area] 19 mL/min/{1.73_m2} Low >60 [facility] Comment on above: Result Comment: mL/m in/1.73m2 CKD-EPI Creatinine Equation (2020) Performed By: #### L 500.2500 ####[facility] [address] [place], [address] Glucose [Mass/Vol] 127 mg/dL High 70-99 [facility] Comment on above: Performed By: #### L 500.2500 ####[facility] [address] [place], [address] Potassium [Moles/Vol] 5.3 mmol/L High 3.3-5.1 [facility] Comment on above: Performed By: #### L 500.2500 ####[facility] [address] [place], [address] Sodium [Moles/Vol] 135 mmol/L Normal 133-145 [facility] Comment on above: Performed By: #### L 500.2500 ####[facility] [address] [place], [address] Urea nitrogen [Mass/Vol] 62 mg/dL High 4-19 [facility] Comment on above: Performed By: #### L 500.2500 ####[facility] [address] [place], [address] Bedside Glucoseon 03-08-2025 FINGERSTICK GLU 132 mg/dL High 74-106 [facility] Comment on above: Result Comment: KODY GEMENT OF PATIENT CARE PER NURSING PROTOCOL Performed By: #### L 501.080 ####[facility] [address] [place], [address] FINGERSTICK GLU 142 mg/dL High 74-106 [facility] Comment on above: Result Comment: KODY GEMENT OF PATIENT CARE PER NURSING PROTOCOL Performed By: #### L 501.080 ####[facility] [address] [place], [address] FINGERSTICK GLU 128 mg/dL High 74-106 [facility] Comment on above: Result Comment: KODY GEMENT OF PATIENT CARE PER NURSING PROTOCOL Performed By: #### L 501.080 ####[facility] [address] [place], [address] FINGERSTICK GLU 122 mg/dL High 74-106 [facility] Comment on above: Result Comment: KODY STRONG OF PATIENT CARE PER NURSING PROTOCOL Performed By: #### L 501.080 ####[facility] [address] [place], [address] Magnesiumon 03-08-2025 Magnesium [Mass/Vol] 2.3 mg/dL High 1.5-2.2 [facility] Comment on above: Performed By: #### L 501.5200 ####[facility] [address] [place], [address] Magnesium measurement (mass/ volume)Ordered By: Nicola Madison on 03-08-2025 Magnesium (Unsp spec) [Mass/Vol] 2.3 mg/dL High 1.5-2.2 [facility] Potassiumon 03-08-2025 Potassium [Moles/Vol] 5.5 mmol/L High 3.3-5.1 [facility] Comment on above: Performed By: #### L 501.5600 ####[facility] [address] [place], [address] Basic Metabolic Profile (BMP )on 03-07-2025 BUN/CRE 18.2 RATIO Normal - [facility] Comment on above: Performed By: #### L 500.2500 ####[facility] [address] [place], [address] Calcium [Mass/Vol] 8.7 mg/dL Normal 7.6-11.0 [facility] Comment on above: Performed By: #### L 500.2500 ####[facility] [address] [place], [address] Chloride [Moles/Vol] 97 mmol/L Low 98-108 [facility] Comment on above: Performed By: #### L 500.2500 ####[facility] [address] [place], [address] CO2 [Moles/Vol] 26.3 mmol/L Normal 21.0-32.0 [facility] Comment on above: Performed By: #### L 500.2500 ####[facility] [address] [place], [address] Creatinine [Mass/Vol] 3.09 mg/dL High 0.70-1.20 [facility] Comment on above: Performed By: #### L 500.2500 ####[facility] [address] [place], [address] ECRCL 17.21 ml/min Low 50-250 [facility] Comment on above: Performed By: #### L 500.2500 ####[facility] [address] [place], [address] GAP 10 Normal 5-15 [facility] Comment on above: Performed By: #### L 500.2500 ####[facility] [address] [place], [address] GFR/1.73 sq M.predicted among non-blacks MDRD (S/P/Bld) [Vol rate/Area] 20 mL/min/{1.73_m2} Low >60 [facility] Comment on above: Result Comment: mL/m in/1.73m2 CKD-EPI Creatinine Equation (2020) Performed By: #### L 500.2500 ####[facility] [address] [place], [address] Glucose [Mass/Vol] 126 mg/dL High 70-99 [facility] Comment on above: Performed By: #### L 500.2500 ####[facility] [address] [place], [address] Potassium [Moles/Vol] 4.8 mmol/L Normal 3.3-5.1 [facility] Comment on above: Performed By: #### L 500.2500 ####[facility] [address] [place], [address] Sodium [Moles/Vol] 134 mmol/L Normal 133-145 [facility] Comment on above: Performed By: #### L 500.2500 ####[facility] [address] [place], [address] Urea nitrogen [Mass/Vol] 56 mg/dL High -19 [facility] Comment on above: Performed By: #### L 500.2500 ####[facility] [address] [place], [address] Bedside Glucoseon 03-07-2025 FINGERSTICK GLU 151 mg/dL High 74-106 [facility] Comment on above: Result Comment: KODY GEMENT OF PATIENT CARE PER NURSING PROTOCOL Performed By: #### L 501.080 ####[facility] [address] [place], [address] FINGERSTICK GLU 191 mg/dL High 74-106 [facility] Comment on above: Result Comment: KODY GEMENT OF PATIENT CARE PER NURSING PROTOCOL Performed By: #### L 501.080 ####[facility] [address] [place], [address] FINGERSTICK GLU 184 mg/dL High 74-106 [facility] Comment on above: Result Comment: KODY GEMENT OF PATIENT CARE PER NURSING PROTOCOL Performed By: #### L 501.080 ####[facility] [address] [place], [address] FINGERSTICK GLU 127 mg/dL High 74-106 [facility] Comment on above: Result Comment: KODY GEMENT OF PATIENT CARE PER NURSING PROTOCOL Performed By: #### L 501.080 ####[facility] [address] [place], [address] Urine Cultureon 03-07-2025 [facility] Comments: On UA samp le of 03/04 Culture exhibits no growth. Normal [facility] Comment on above: Performed By: #### M 100.2200 ####[facility] [address] [place], [address] Basic Metabolic Profile (BMP )on 03-06-2025 BUN/CRE 17.8 RATIO Normal 10-20 [facility] Comment on above: Performed By: #### L 500.2500, L501.2300 ####[facility] [address] [place], [address] Calcium [Mass/Vol] 9.1 mg/dL Normal 7.6-11.0 [facility] Comment on above: Performed By: #### L 500.2500, L501.2300 ####[facility] [address] [place], [address] Chloride [Moles/Vol] 99 mmol/L Normal 98-108 [facility] Comment on above: Performed By: #### L 500.2500, L501.2300 ####[facility] [address] [place], [address] CO2 [Moles/Vol] 31.2 mmol/L Normal 21.0-32.0 [facility] Comment on above: Performed By: #### L 500.2500, L501.2300 ####[facility] [address] [place], [address] Creatinine [Mass/Vol] 2.23 mg/dL High 0.70-1.20 [facility] Comment on above: Performed By: #### L 500.2500, L501.2300 ####[facility] [address] [place], [address] ECRCL 23.84 ml/min Low 50-250 [facility] Comment on above: Performed By: #### L 500.2500, L501.2300 ####[facility] [address] [place], [address] GAP 8 Normal 5-15 [facility] Comment on above: Performed By: #### L 500.2500, L501.2300 ####[facility] [address] [place], [address] GFR/1.73 sq M.predicted among non-blacks MDRD (S/P/Bld) [Vol rate/Area] 29 mL/min/{1.73_m2} Low >60 [facility] Comment on above: Result Comment: mL/m in/1.73m2 CKD-EPI Creatinine Equation (2020) Performed By: #### L 500.2500, L501.2300 ####[facility] [address] [place], [address] Glucose [Mass/Vol] 118 mg/dL High 70-99 [facility] Comment on above: Performed By: #### L 500.2500, L501.2300 ####[facility] [address] [place], [address] Potassium [Moles/Vol] 4.7 mmol/L Normal 3.3-5.1 [facility] Comment on above: Performed By: #### L 500.2500, L501.2300 ####[facility] [address] [place], [address] Sodium [Moles/Vol] 138 mmol/L Normal 133-145 [facility] Comment on above: Performed By: #### L 500.2500, L501.2300 ####[facility] [address] [place], [address] Urea nitrogen [Mass/Vol] 40 mg/dL High 4-19 [facility] Comment on above: Performed By: #### L 500.2500, L501.2300 ####[facility] [address] [place], [address] Bedside Glucoseon 03-06-2025 FINGERSTICK GLU 146 mg/dL High 74-106 [facility] Comment on above: Result Comment: KODY STRONG OF PATIENT CARE PER NURSING PROTOCOL Performed By: #### L 501.080 ####[facility] [address] [place], [address] FINGERSTICK GLU 117 mg/dL High 74-106 [facility] Comment on above: Result Comment: KODY GEMENT OF PATIENT CARE PER NURSING PROTOCOL Performed By: #### L 501.080 ####[facility] [address] [place], [address] FINGERSTICK GLU 229 mg/dL High 74-106 [facility] Comment on above: Result Comment: KODY GEMENT OF PATIENT CARE PER NURSING PROTOCOL Performed By: #### L 501.080 ####[facility] [address] [place], [address] FINGERSTICK GLU 109 mg/dL High -106 [facility] Comment on above: Result Comment: KODY GEMENT OF PATIENT CARE PER NURSING PROTOCOL Performed By: #### L 501.080 ####[facility] [address] [place], [address] FINGERSTICK GLU 140 mg/dL High [facility]106 [facility] Comment on above: Result Comment: KODY GEMENT OF PATIENT CARE PER NURSING PROTOCOL Performed By: #### L 501.080 ####[facility] [address] [place], [address] Consultation - Cardiologyon 03-06-2025 Consultation - Cardiology Normal [facility] Phosphoruson 03-06-2025 Phosphate [Mass/Vol] 3.9 mg/dL Normal 2.7-4.5 [facility] Comment on above: Performed By: #### L 500.2500, L501.2300 ####[facility] [address] [place], [address] Urine cultureOrdered By: Kavita Lantigua on 03-06-2025 Bacteria identified Cx Nom (U) Culture exhibits no growth. [facility] Bedside Glucoseon 03-05-2025 FINGERSTICK GLU 111 mg/dL High 74-106 [facility] Comment on above: Result Comment: KODY GEMENT OF PATIENT CARE PER NURSING PROTOCOL Performed By: #### L 501.080 ####[facility] [address] [place], [address] FINGERSTICK GLU 152 mg/dL High 74-106 [facility] Comment on above: Result Comment: KODY GEMENT OF PATIENT CARE PER NURSING PROTOCOL Performed By: #### L 501.080 ####[facility] [address] [place], [address] FINGERSTICK GLU 159 mg/dL High 74-106 [facility] Comment on above: Result Comment: KODY GEMENT OF PATIENT CARE PER NURSING PROTOCOL Performed By: #### L 501.080 ####[facility] [address] [place], [address] Bilirubin, totalOrdered By: Nicola Madison on 03-05-2025 Bilirubin [Mass/Vol] 0.46 mg/dL 0.00-1.30 [facility] CBC W/Diff, Automatedon 02-17 Absolute Lymph 0.72 X10 3/uL Low 0.83-4.51 [facility] Comment on above: Performed By: #### L 100.0100, L501.2300 ####[facility] [address] [place], [address] Absolute Neut 5.8 X10 3/uL Normal 2.0-7.7 [facility] Comment on above: Performed By: #### L 100.0100, L501.2300 ####[facility] [address] [place], [address] Basophils/100 WBC (Bld) 0.4 % Normal 0-1 [facility] Comment on above: Performed By: #### L 100.0100, L501.2300 ####[facility] [address] [place], [address] Eosinophils/100 WBC (Bld) 2.0 % Normal 0-5 [facility] Comment on above: Performed By: #### L 100.0100, L501.2300 ####[facility] [address] [place], [address] Erythrocyte distribution width (RBC) [Ratio] 16.6 % High 11.6-14.6 [facility] Comment on above: Performed By: #### L 100.0100, L501.2300 ####[facility] [address] [place], [address] Hematocrit (Bld) [Volume fraction] 30.1 % Low 40-54 [facility] Comment on above: Performed By: #### L 100.0100, L501.2300 ####[facility] [address] [place], [address] Hemoglobin (Bld) [Mass/Vol] 9.3 g/dL Low 13.0-16.5 [facility] Comment on above: Performed By: #### L 100.0100, L501.2300 ####[facility] [address] [place], [address] IG% 0.300 Normal 0.0-0.9 [facility] Comment on above: Result Comment: IG% - Immature Granulocytes (promyelocytes, myelocytes andmetamyelocytes) > 1% indicates that a LEFT SHIFT is Present. Performed By: #### L 100.0100, L501.2300 ####[facility] [address] [place], [address] Lymphocytes/100 WBC (Bld) 9.5 % Low 19-41 [facility] Comment on above: Performed By: #### L 100.0100, L501.2300 ####[facility] [address] [place], [address] MCH (RBC) [Entitic mass] 27.0 pg Normal 27.0-32.0 [facility] Comment on above: Performed By: #### L 100.0100, L501.2300 ####[facility] [address] [place], [address] MCHC (RBC) [Mass/Vol] 30.9 g/dL Low 32-36 [facility] Comment on above: Performed By: #### L 100.0100, L501.2300 ####[facility] [address] [place], [address] MCV (RBC) [Entitic vol] 87.5 fL Normal 80-94 [facility] Comment on above: Performed By: #### L 100.0100, L501.2300 ####[facility] [address] [place], [address] Monocytes/100 WBC (Bld) 11.4 % High 0-10 [facility] Comment on above: Performed By: #### L 100.0100, L501.2300 ####[facility] [address] [place], [address] Neutrophils/100 WBC (Bld) 76.4 % High 47-70 [facility] Comment on above: Performed By: #### L 100.0100, L501.2300 ####[facility] [address] [place], [address] Nucleated RBC (Bld) [#/Vol] 0 10*3/uL Normal 0-5 [facility] Comment on above: Performed By: #### L 100.0100, L501.2300 ####[facility] [address] [place], [address] Platelet mean volume (Bld) [Entitic vol] 10.7 fL Normal 6.2-12.0 [facility] Comment on above: Performed By: #### L 100.0100, L501.2300 ####[facility] [address] [place], [address] Platelets (Bld) [#/Vol] 181 10*3/uL Normal 150-450 [facility] Comment on above: Performed By: #### L 100.0100, L501.2300 ####[facility] [address] [place], [address] RBC (Bld) [#/Vol] 3.44 10*6/uL Low 4.6-6.2 [facility] Comment on above: Performed By: #### L 100.0100, L501.2300 ####[facility] [address] [place], [address] RDW SD 52.8 fl High 35.1-43.9 [facility] Comment on above: Performed By: #### L 100.0100, L501.2300 ####[facility] [address] [place], [address] WBC (Bld) [#/Vol] 7.6 10*3/uL Normal 4.4-11.0 [facility] Comment on above: Performed By: #### L 100.0100, L501.2300 ####[facility] [address] [place], [address] Calculated very low density lipoprotein (VLDL) cholesterol measurementOrdered By: Nicola Madison on 03-05-2025 Calculated very low density lipoprotein (VLDL) cholesterol measurement 16 mg/dL 5-40 [facility] Chest 1 View (Portable)on Chest 1 View (Portable) Normal [facility] Comprehensive Metabolic Prof ilon 03-05-2025 Albumin [Mass/Vol] 3.4 g/dL Normal 3.4-4.8 [facility] Comment on above: Performed By: #### L 500.4050, L500.4100, L503.7055 ####[facility] [address] [place], [address] Albumin/Globulin [Mass ratio] 0.9 {ratio} Normal 0.9-2.4 [facility] Comment on above: Performed By: #### L 500.4050, L500.4100, L503.7505 ####[facility] [address] [place], [address] ALK PHOS 75 U/L Normal 40-129 [facility] Comment on above: Performed By: #### L 500.4050, L500.4100, L503.7505 ####[facility] [address] [place], [address] ALT [Catalytic activity/Vol] 10 U/L Normal <=46 [facility] Comment on above: Performed By: #### L 500.4050, L500.4100, L503.7505 ####[facility] [address] [place], [address] AST [Catalytic activity/Vol] 15 U/L Normal <=37 [facility] Comment on above: Performed By: #### L 500.4050, L500.4100, L503.7505 ####[facility] [address] [place], [address] Bilirubin [Mass/Vol] 0.46 mg/dL Normal 0.00-1.30 [facility] Comment on above: Performed By: #### L 500.4050, L500.4100, L503.7505 ####[facility] [address] [place], [address] BUN/CRE 18.6 RATIO Normal 10-20 [facility] Comment on above: Performed By: #### L 500.4050, L500.4100, L503.7505 ####[facility] [address] [place], [address] Calcium [Mass/Vol] 9.1 mg/dL Normal 7.6-11.0 [facility] Comment on above: Performed By: #### L 500.4050, L500.4100, L503.7505 ####[facility] [address] [place], [address] Chloride [Moles/Vol] 101 mmol/L Normal 98-108 [facility] Comment on above: Performed By: #### L 500.4050, L500.4100, L503.7505 ####[facility] [address] [place], [address] CO2 [Moles/Vol] 27.2 mmol/L Normal 21.0-32.0 [facility] Comment on above: Performed By: #### L 500.4050, L500.4100, L503.7505 ####[facility] [address] [place], [address] Creatinine [Mass/Vol] 1.95 mg/dL High 0.70-1.20 [facility] Comment on above: Performed By: #### L 500.4050, L500.4100, L503.7505 ####[facility] [address] [place], [address] ECRCL 27.26 ml/min Low 50-250 [facility] Comment on above: Performed By: #### L 500.4050, L500.4100, L503.7505 ####[facility] [address] [place], [address] GAP 10 Normal 5-15 [facility] Comment on above: Performed By: #### L 500.4050, L500.4100, L503.7505 ####[facility] [address] [place], [address] GFR/1.73 sq M.predicted among non-blacks MDRD (S/P/Bld) [Vol rate/Area] 34 mL/min/{1.73_m2} Low >60 [facility] Comment on above: Result Comment: mL/m in/1.73m2 CKD-EPI Creatinine Equation (2020) Performed By: #### L 500.4050, L500.4100, L503.7505 ####[facility] [address] [place], [address] Globulin (S) [Mass/Vol] 3.9 g/dL Normal 2.2-4.2 [facility] Comment on above: Performed By: #### L 500.4050, L500.4100, L503.7505 ####[facility] [address] [place], [address] Glucose [Mass/Vol] 171 mg/dL High 70-99 [facility] Comment on above: Performed By: #### L 500.4050, L500.4100, L503.7505 ####[facility] [address] [place], [address] Potassium [Moles/Vol] 5.0 mmol/L Normal 3.3-5.1 [facility] Comment on above: Performed By: #### L 500.4050, L500.4100, L503.7505 ####[facility] [address] [place], [address] Sodium [Moles/Vol] 138 mmol/L Normal 133-145 [facility] Comment on above: Performed By: #### L 500.4050, L500.4100, L503.7505 ####[facility] [address] [place], [address] T PROT 7.3 g/dL Normal 5.9-8.4 [facility] Comment on above: Performed By: #### L 500.4050, L500.4100, L503.7505 ####[facility] [address] [place], [address] Urea nitrogen [Mass/Vol] 36 mg/dL High 4-19 [facility] Comment on above: Performed By: #### L 500.4050, L500.4100, L503.7505 ####[facility] [address] [place], [address] Echocardiogram study reportO rdered By: Marjorie Green on 03-05-2025 Study report [facility] [address] [place] [address] Echo Complete W/ Contrast 03/05/25 0941 MR#: [id number] Acct: [id number] Name: PEDRO HILLMAN Rep #:[id number] : 1945 80 From: Marjorie Green MD Attending Dr: Dr. Deric Lantigua MD Status: ADM IN Ordering Dr: Nicola Lindsey DO Date: 03/04/25 Location: [facility] Sex: M C Admitted: 03/04/25 Reason For [...] cm LVPWd: 1.4 cm FS: 19.7 % __ LAV(MOD-bp): 49.5 ml LVAd ap4: 35.3 cm2 SV(MOD-sp4): 66.3 ml LAV(MOD-bp) Indexed: 27.1 ml/m2 LVLd ap4: 8.2 cm SI(MOD-sp4): 36.4 ml/m2 LAV(MOD-sp2): 49.9 ml EDV(MOD-sp4): 130.3 ml LAV(MOD-sp4): 39.5 ml EDV(sp4-el): 128.9 ml LVAs ap4: 22.7 cm2 LVLs ap4: 6.6 cm ESV(MOD-sp4): 64.0 ml ESV(sp4-el): 66.2 ml EF(MOD-sp4): 50.9 % EF(sp4-el): 48.7 % __ SV(sp4-el): 62.7 ml LA A4 area: 17.2 [...] MD ~ Date Dictated: 03/05/25940 Date Transcribed: 03/05/251151 Infrastructure Analyst: Signed [facility] Work Phone: [phone] 03-05-2025 Natriuretic peptide B (Bld) [Mass/Vol] 4176 pg/mL High <=1800 [facility] Comment on above: Result Comment: Hear t Failure Unlikely: < 300 pg/mLHeart Failure Likely< 50 Years: > 450 pg/mL50-75 Years: > 900 pg/mL>75 Years: > 1800 pg/mL Performed By: #### L 500.4050, L500.4100, L503.7505 ####[facility] [address] [facility] [place], [place], [id number] LDL calc ser/plasOrdered By: Nicola Madison on 03-05-2025 Cholesterol in LDL [Mass/Vol] 63 mg/dL [facility] Comment on above: Onqlmviquq=936-768 m g/dL & Higher Neeu=833 mg/dL or greater Laboratory - Chemistry and C hemistry - challengeOrdered By: Nicola Madison on 03-05-2025 AST [Catalytic activity/Vol] 15 U/L <38 [facility] Lipid Profileon 03-05-2025 CHOL:HDL 3.04 Normal [facility] Comment on above: Performed By: #### L 500.4050, L500.4100, L503.7505 ####[facility] [address] [place], [address] Cholesterol [Mass/Vol] 117 mg/dL Normal <=200 [facility] Comment on above: Result Comment: Chol esterol level, Desirable <200 mg/dLBorderline high cholesterol 200-239 mg/dLHigh cholesterol >=240 mg/dLRecommendations of the NCEP Adult Treatment Panel for thefollowing risk-cutoff thresholds for the [place] [facility]. Performed By: #### L 500.4050, L500.4100, L503.7505 ####[facility] [address] [place], [address] Cholesterol in HDL [Mass/Vol] 39 mg/dL Low [facility] Comment on above: Result Comment: Gia onal Cholesterol Education Program (NCEP) guidelines:<40 mg/dL: Low HDL-cholesterol (major risk factor for CHD)>= 60 mg/dL: High HDL-cholesterol (negative risk factor forCHD)HDL-cholesterol is affected by a number of factors, e.g.smoking, exercise, hormones, sex and age. Performed By: #### L 500.4050, L500.4100, L503.7505 ####[facility] [address] [place], [address] Cholesterol in LDL [Mass/Vol] 63 mg/dL Normal [facility] Comment on above: Result Comment: Bord zcouet=264-417 mg/dL Higher Ihry=268 mg/dL or greater Performed By: #### L 500.4050, L500.4100, L503.7505 ####[facility] [address] [place], [address] Cholesterol in VLDL [Mass/Vol] 16 mg/dL Normal 5-40 [facility] Comment on above: Performed By: #### L 500.4050, L500.4100, L503.7505 ####[facility] [address] [place], [address] Triglyceride [Mass/Vol] 79 mg/dL Normal [facility] Comment on above: Result Comment: The drugs N-Acetylcysteine and Metamizole may falselydepress this assay.Normal range: <150 mg/dLBorderline High: 150-199 mg/dLHigh: 200-499 mg/dLVery High: >500 mg/dL Performed By: #### L 500.4050, L500.4100, L503.7505 ####[facility] [address] [place], [address] Natriuretic peptide.B prohor girish N-Terminal [Mass/volume] in Serum or PlasmaOrdered By: Nicola Madison on 03-05-2025 Natriuretic peptide.B prohormone N-Terminal [Mass/Vol] 4176 pg/mL High <1800 [facility] Comment on above: Heart Failure Unlike ly: < 300 pg/mLHeart Failure Likely< 50 Years: > 450 pg/mL50-75 Years: > 900 pg/mL>75 Years: > 1800 pg/mL No Panel InformationOrdered By: Nicola Madison on 03-05-2025 15 U/L <38 [facility] Phosphoruson 03-05-2025 Phosphate [Mass/Vol] 3.3 mg/dL Normal 2.7-4.5 [facility] Comment on above: Performed By: #### L 100.0100, L501.2300 ####[facility] [address], [address] Screening total cholesterol/ high density lipoprotein (HDL) cholesterol ratioOrdered By: Nicola Madison on 03-05-2025 Cholesterol.total/Choles terol in HDL [Mass ratio] 3.04 {ratio} [facility] Serum globulin measurementOr dered By: Nicola Madison on 03-05-2025 Globulin (S) [Mass/Vol] 3.9 g/dL 2.2-4.2 [facility] Serum or plasma alanine ortiz otransferase (ALT) measurementOrdered By: Nicola Madison on 03-05-2025 ALT [Catalytic activity/Vol] 10 U/L <47 [facility] Serum or plasma albumin kingsley urement (mass/volume)Ordered By: Nicola Madison on 03-05-2025 Albumin [Mass/Vol] 3.4 g/dL 3.4-4.8 [facility] Serum or plasma albumin/glob ulin mass ratioOrdered By: Nicola Madison on 03-05-2025 Albumin/Globulin [Mass ratio] 0.9 {ratio} 0.9-2.4 [facility] Serum or plasma alkaline roosevelt sphatase measurementOrdered By: Nicola Madison on 03-05-2025 ALP [Catalytic activity/Vol] 75 U/L 40-129 [facility] Serum or plasma cholesterol in HDL measurement (mass/volume)Ordered By: Nicola Madison on 03-05-2025 Cholesterol in HDL [Mass/Vol] 39 mg/dL Low >40 [facility] Comment on above: National Cholesterol Education Program (NCEP) guidelines:<40 mg/dL: Low HDL-cholesterol (major risk factor for CHD)>= 60 mg/dL: High HDL-cholesterol (negative risk factor for CHD)HDL-cholesterol is affected by a number of factors, e.g. smoking, exercise, hormones, sex and age. Serum or plasma cholesterol measurement (mass/volume)Ordered By: Nicola Madison on 03-05-2025 Cholesterol [Mass/Vol] 117 mg/dL <201 [facility] Comment on above: Cholesterol level, D esirable <200 mg/dLBorderline high cholesterol 200-239 mg/dLHigh cholesterol >=240 mg/dLRecommendations of the NCEP Adult Treatment Panel for the following risk-cutoff thresholds for the [place] population. Total proteinOrdered By: Jacob Madison on 03-05-2025 Protein [Mass/Vol] 7.3 g/dL 5.9-8.4 [facility] Triglycerides measurementOrd ered By: Nicola Madison on 03-05-2025 Triglyceride [Mass/Vol] 79 mg/dL <199 [facility] Comment on above: The drugs N-Acetylcy steine and Metamizole may falsely depress this assay. Normal range: <150 mg/dLBorderline High: 150-199 mg/dLHigh: 200-499 mg/dLVery High: >500 mg/dL Absolute lymphocyte countOrd ered By: Chris Ochoa on 03-04-2025 Lymphocytes Auto (Unsp spec) [#/Vol] 0.77 10*3/uL Low 0.83-4.51 [facility] Absolute neutrophil countOrd ered By: Chris Ochoa on 03-04-2025 Neutrophils (Bld) [#/Vol] 6.0 10*3/uL 2.0-7.7 [facility] Anion gap in Serum or Plasma Ordered By: Chris Ochoa on 03-04-2025 Anion gap [Moles/Vol] 8 mmol/L - [facility] Automated lymphocyte count a s percentage of total leukocytesOrdered By: Chris Ochoa on 03-04-2025 Lymphocytes/100 WBC Auto (Unsp spec) 10.1 % Low -41 [facility] BUN/creatinine ratioOrdered By: Chris Ochoa on 03-04-2025 Urea nitrogen/Creatinine [Mass ratio] 19.7 mg/mg - [facility] Basic Metabolic Profile (BMP )on 03-04-2025 BUN/CRE 19.7 RATIO Normal - [facility] Comment on above: Performed By: #### L 100.0100, L500.2500, L501.4021, L503.7505 ####[facility] [address] [place], [address] Calcium [Mass/Vol] 9.3 mg/dL Normal 7.6-11.0 [facility] Comment on above: Performed By: #### L 100.0100, L500.2500, L501.4021, L503.7505 ####[facility] [address] [place], [address] Chloride [Moles/Vol] 102 mmol/L Normal 98-108 [facility] Comment on above: Performed By: #### L 100.0100, L500.2500, L501.4021, L503.7505 ####[facility] [address] [place], [address] CO2 [Moles/Vol] 28.6 mmol/L Normal 21.0-32.0 [facility] Comment on above: Performed By: #### L 100.0100, L500.2500, L501.4021, L503.7505 ####[facility] [address] [place], [address] Creatinine [Mass/Vol] 1.86 mg/dL High 0.70-1.20 [facility] Comment on above: Performed By: #### L 100.0100, L500.2500, L501.4021, L503.7505 ####[facility] [address] [place], [address] ECRCL 28.58 ml/min Low 50-250 [facility] Comment on above: Performed By: #### L 100.0100, L500.2500, L501.4021, L503.7505 ####[facility] [address] [place], [address] GAP 8 Normal 5-15 [facility] Comment on above: Performed By: #### L 100.0100, L500.2500, L501.4021, L503.7505 ####[facility] [address] [place], [address] GFR/1.73 sq M.predicted among non-blacks MDRD (S/P/Bld) [Vol rate/Area] 36 mL/min/{1.73_m2} Low >60 [facility] Comment on above: Result Comment: mL/m in/1.73m2 CKD-EPI Creatinine Equation (2020) Performed By: #### L 100.0100, L500.2500, L501.4021, L503.7505 ####[facility] [address] [place], [address] Glucose [Mass/Vol] 124 mg/dL High 70-99 [facility] Comment on above: Performed By: #### L 100.0100, L500.2500, L501.4021, L503.7505 ####[facility] [address] [place], [address] Potassium [Moles/Vol] 5.2 mmol/L High 3.3-5.1 [facility] Comment on above: Performed By: #### L 100.0100, L500.2500, L501.4021, L503.7505 ####[facility] [address] [place], [address] Sodium [Moles/Vol] 138 mmol/L Normal 133-145 [facility] Comment on above: Performed By: #### L 100.0100, L500.2500, L501.4021, L503.7505 ####[facility] [address] [place], [address] Urea nitrogen [Mass/Vol] 37 mg/dL High 4-19 [facility] Comment on above: Performed By: #### L 100.0100, L500.2500, L501.4021, L503.7505 ####[facility] [address] [place], [address] Basophil percentageOrdered B y: Chris Ochoa on 03-04-2025 Basophils/100 WBC (Bld) 0.4 % 0-1 [facility] Bedside Glucoseon 03-04-2025 FINGERSTICK GLU 80 mg/dL Normal 74-106 [facility] Comment on above: Result Comment: KODY STRONG OF PATIENT CARE PER NURSING PROTOCOL Performed By: #### L 501.080 ####[facility] [address] [place], [address] Bilirubin Test strip Ql (U)O rdered By: Nicola Madison on 03-04-2025 Bilirubin Ql (U) Negative Negative [facility] CBC W/Diff, Automatedon 02-17 Absolute Lymph 0.77 X10 3/uL Low 0.83-4.51 [facility] Comment on above: Performed By: #### L 100.0100, L500.2500, L501.4021, L503.7505 ####[facility] [address] [place], [address] Absolute Neut 6.0 X10 3/uL Normal 2.0-7.7 [facility] Comment on above: Performed By: #### L 100.0100, L500.2500, L501.4021, L503.7505 ####[facility] [address] [place], [address] Basophils/100 WBC (Bld) 0.4 % Normal 0-1 [facility] Comment on above: Performed By: #### L 100.0100, L500.2500, L501.4021, L503.7505 ####[facility] [address] [place], [address] Eosinophils/100 WBC (Bld) 1.6 % Normal 0-5 [facility] Comment on above: Performed By: #### L 100.0100, L500.2500, L501.4021, L503.7505 ####[facility] [address] [place], [address] Erythrocyte distribution width (RBC) [Ratio] 16.5 % High 11.6-14.6 [facility] Comment on above: Performed By: #### L 100.0100, L500.2500, L501.4021, L503.7505 ####[facility] [address] [place], [address] Hematocrit (Bld) [Volume fraction] 33.4 % Low 40-54 [facility] Comment on above: Performed By: #### L 100.0100, L500.2500, L501.4021, L503.7505 ####[facility] [address] [place], [address] Hemoglobin (Bld) [Mass/Vol] 10.1 g/dL Low 13.0-16.5 [facility] Comment on above: Performed By: #### L 100.0100, L500.2500, L501.4021, L503.7505 ####[facility] [address] [place], [address] IG% 0.700 Normal 0.0-0.9 [facility] Comment on above: Result Comment: IG% - Immature Granulocytes (promyelocytes, myelocytes andmetamyelocytes) > 1% indicates that a LEFT SHIFT is Present. Performed By: #### L 100.0100, L500.2500, L501.4021, L503.7505 ####[facility] [address] [place], [address] Lymphocytes/100 WBC (Bld) 10.1 % Low 19-41 [facility] Comment on above: Performed By: #### L 100.0100, L500.2500, L501.4021, L503.7505 ####[facility] [address] [place], [address] MCH (RBC) [Entitic mass] 27.0 pg Normal 27.0-32.0 [facility] Comment on above: Performed By: #### L 100.0100, L500.2500, L501.4021, L503.7505 ####[facility] [address] [place], [address] MCHC (RBC) [Mass/Vol] 30.2 g/dL Low 32-36 [facility] Comment on above: Performed By: #### L 100.0100, L500.2500, L501.4021, L503.7505 ####[facility] [address] [place], [address] MCV (RBC) [Entitic vol] 89.3 fL Normal 80-94 [facility] Comment on above: Performed By: #### L 100.0100, L500.2500, L501.4021, L503.7505 ####[facility] [address] [place], [address] Monocytes/100 WBC (Bld) 9.1 % Normal 0-10 [facility] Comment on above: Performed By: #### L 100.0100, L500.2500, L501.4021, L503.7505 ####[facility] [address] [place], [address] Neutrophils/100 WBC (Bld) 78.1 % High 47-70 [facility] Comment on above: Performed By: #### L 100.0100, L500.2500, L501.4021, L503.7505 ####[facility] [address] [place], [address] Nucleated RBC (Bld) [#/Vol] 0 10*3/uL Normal 0-5 [facility] Comment on above: Performed By: #### L 100.0100, L500.2500, L501.4021, L503.7505 ####[facility] [address] [place], [address] Platelet mean volume (Bld) [Entitic vol] 10.2 fL Normal 6.2-12.0 [facility] Comment on above: Performed By: #### L 100.0100, L500.2500, L501.4021, L503.7505 ####[facility] [address] [place], [address] Platelets (Bld) [#/Vol] 189 10*3/uL Normal 150-450 [facility] Comment on above: Performed By: #### L 100.0100, L500.2500, L501.4021, L503.7505 ####[facility] [address] [place], [address] RBC (Bld) [#/Vol] 3.74 10*6/uL Low 4.6-6.2 [facility] Comment on above: Performed By: #### L 100.0100, L500.2500, L501.4021, L503.7505 ####[facility] [address] [place], [address] RDW SD 54.2 fl High 35.1-43.9 [facility] Comment on above: Performed By: #### L 100.0100, L500.2500, L501.4021, L503.7505 ####[facility] [address] [place], [address] WBC (Bld) [#/Vol] 7.6 10*3/uL Normal 4.4-11.0 [facility] Comment on above: Performed By: #### L 100.0100, L500.2500, L501.4021, L503.7505 ####[facility] [address] [place], [address] Carbon dioxide, total [Moles /volume] in Central venous bloodOrdered By: Chris Ochoa on 03-04-2025 CO2 [Moles/Vol] 28.6 mmol/L 21.0-32.0 [facility] Chest PA and Lateralon 03-04 Chest PA and Lateral Normal [facility] Chloride assayOrdered By: Chino Ochoa on 03-04-2025 Chloride [Moles/Vol] 102 mmol/L 98-108 [facility] Echo Complete W/ Contraston 03-04-2025 Echo Complete W/ Contrast Normal [facility] Emergency Department Summary on 03-04-2025 Emergency Department Summary Normal [facility] Eosinophil percentageOrdered By: Chris Ochoa on 03-04-2025 Eosinophils/100 WBC (Bld) 1.6 % 0-5 [facility] Erythrocyte distribution wid th ratioOrdered By: Chris Ochoa on 03-04-2025 Erythrocyte distribution width (RBC) [Ratio] 16.5 % High 11.6-14.6 [facility] Erythrocyte distribution wid th standard deviationOrdered By: Chris Ochoa on 03-04-2025 Erythrocyte distribution width (RBC) [Ratio] 54.2 fl High 35.1-43.9 [facility] Glomerular filtration rate ( GFR) estimation/1.73 sq m using serum, plasma, or whole bOrdered By: Chris Ochoa on 03-04-2025 GFR/1.73 sq M.predicted among non-blacks MDRD (S/P/Bld) [Vol rate/Area] 36 mL/min/{1.73_m2} Low >60 [facility] Comment on above: mL/min/1.73m2 CKD-EP I Creatinine Equation (2020) H AND P Exam - Hospitaliston 03-04-2025 H&P Exam - Hospitalist Normal [facility] Hematocrit Auto (Bld) [Volum e fraction]Ordered By: Chris Ochoa on 03-04-2025 Hematocrit (Bld) [Volume fraction] 33.4 % Low 40-54 [facility] Hemoglobin A1con 03-04-2025 HbA1c (Bld) [Mass fraction] 6.3 % High <=5.6 [facility] Comment on above: Result Comment: Norm al < 5.7 % Prediabetic 5.7 - 6.4 % Diabetic >or= 6.5 % Please note range changes. Performed By: #### L 501.9520, L501.9985, L501.5200 ####[facility] [address] [place], [place], [id number] Hemoglobin A1c percentageOrd ered By: Nicola Madison on 03-04-2025 HbA1c (Bld) [Mass fraction] 6.3 % High <5.7 [facility] Comment on above: Normal < 5.7 % Predi abetic 5.7 - 6.4 % Diabetic >or= 6.5 % Please note range changes. Hemoglobin measurementOrdere d By: Chris Ochoa on 03-04-2025 Hemoglobin (Bld) [Mass/Vol] 10.1 g/dL Low 13.0-16.5 [facility] Immature granulocytes/100 WB C Auto (Bld)Ordered By: Chris Ochoa on 03-04-2025 Immature granulocytes/100 WBC (Bld) 0.700 % 0.0-0.9 [facility] Comment on above: IG% - Immature Granu locytes (promyelocytes, myelocytes and metamyelocytes) > 1% indicates that a LEFT SHIFT is Present. Ketones Test strip Ql (U)Ord ered By: Nicola Madison on 03-04-2025 Ketones Ql (U) Negative Negative [facility] L499.0042on 03-04-2025 Trop T High Sen 45 ng/L High <=22 [facility] Comment on above: Performed By: #### L 499.0042 ####[facility] [address] [place], [address] L499.0043on 03-04-2025 Trop T High Sen 42 ng/L High <=22 [facility] Comment on above: Performed By: #### L 499.0043 ####[facility] [address] [place], [address] L501.4021on 03-04-2025 Trop T High Sen 44 ng/L High <=22 [facility] Comment on above: Performed By: #### L 100.0100, L500.2500, L501.4021, L503.7505 ####[facility] [address] [place], [address] L503.7505on 03-04-2025 Natriuretic peptide B (Bld) [Mass/Vol] 3316 pg/mL High <=1800 [facility] Comment on above: Result Comment: Hear t Failure Unlikely: < 300 pg/mLHeart Failure Likely< 50 Years: > 450 pg/mL50-75 Years: > 900 pg/mL>75 Years: > 1800 pg/mL Performed By: #### L 100.0100, L500.2500, L501.4021, L503.7505 ####[facility] [address] [place], [address] MCV (mean corpuscular volume ) determinationOrdered By: Chris Ochoa on 03-04-2025 MCV (RBC) [Entitic vol] 89.3 fL 80-94 [facility] Magnesiumon 03-04-2025 Magnesium [Mass/Vol] 2.0 mg/dL Normal 1.5-2.2 [facility] Comment on above: Performed By: #### L 501.9520, L501.9985, L501.5200 ####[facility] [address] [place], [address] Mean corpuscular hemoglobin (MCH) determinationOrdered By: Chris Ochoa on 03-04-2025 MCH (RBC) [Entitic mass] 27.0 pg 27.0-32.0 [facility] Mean corpuscular hemoglobin concentration (MCHC) determinationOrdered By: Chris Ochoa on 03-04-2025 MCHC (RBC) [Mass/Vol] 30.2 g/dL Low 32-36 [facility] Mean platelet volume determi nationOrdered By: Chris Ochoa on 03-04-2025 Platelet mean volume (Bld) [Entitic vol] 10.2 fL 6.2-12.0 [facility] Microscopic analysis of urin e for red blood cells (RBC)Ordered By: Nicola Madison on 03-04-2025 Microscopic analysis of urine for red blood cells (RBC) 5-10 SEEN /hpf 0-5 [facility] Monocyte percentageOrdered B y: Chris Ochoa on 03-04-2025 Monocytes/100 WBC (Bld) 9.1 % 0-10 [facility] Mucus LM Ql (Urine sed)Order ed By: Nicola Madison on 03-04-2025 Mucus Ql (Urine sed) 0 SEEN /hpf [facility] Natriuretic peptide.B prohor girish N-Terminal [Mass/volume] in Serum or PlasmaOrdered By: Chris Ochoa on 03-04-2025 Natriuretic peptide.B prohormone N-Terminal [Mass/Vol] 3316 pg/mL High <1800 [facility] Comment on above: Heart Failure Unlike ly: < 300 pg/mLHeart Failure Likely< 50 Years: > 450 pg/mL50-75 Years: > 900 pg/mL>75 Years: > 1800 pg/mL Neutrophil percentageOrdered By: Chris Ochoa on 03-04-2025 Neutrophils/100 WBC (Bld) 78.1 % High 47-70 [facility] Nitrite Test strip Ql (U)Ord ered By: Nicola Madison on 03-04-2025 Nitrite Ql (U) Positive High Negative [facility] Nucleated red blood cell per centageOrdered By: Chris Ochoa on 03-04-2025 Nucleated RBC/100 WBC (Bld) [Ratio] 0 % 0-5 [facility] Platelet countOrdered By: Chino Ochoa on 03-04-2025 Platelets (Bld) [#/Vol] 189 10*3/uL 150-450 [facility] Potassium measurement (mass/ volume)Ordered By: Chris Ochoa on 03-04-2025 Potassium (Unsp spec) [Mass/Vol] 5.2 mmol/L High 3.3-5.1 [facility] Protein Test strip Ql (U)Ord ered By: Nicola Madison on 03-04-2025 Protein Ql (U) 100 mg/dl High Negative [facility] RBC Auto (Bld) [#/Vol]Ordere d By: Chris Ochoa on 03-04-2025 RBC (Bld) [#/Vol] 3.74 10*6/uL Low 4.6-6.2 [facility] Serum creatinine measurement (mass/volume)Ordered By: Chris Ochoa on 03-04-2025 Creatinine [Mass/Vol] 1.86 mg/dL High 0.70-1.20 [facility] Serum glucose measurement (m ass/volume)Ordered By: Chris Ochoa on 03-04-2025 Glucose [Mass/Vol] 124 mg/dL High 70-99 [facility] Serum or plasma calcium kingsley urement (mass/volume)Ordered By: Chris Ochoa on 03-04-2025 Calcium [Mass/Vol] 9.3 mg/dL 7.6-11.0 [facility] Serum or plasma urea nitroge n measurement (mass/volume)Ordered By: Chris Ochoa on 03-04-2025 Urea nitrogen [Mass/Vol] 37 mg/dL High 4-19 [facility] Sodium levelOrdered By: Chris Ochoa on 03-04-2025 Sodium [Moles/Vol] 138 mmol/L 133-145 [facility] Squamous epithelial cells de tection in urine sediment by light microscopyOrdered By: Nicola Madison on 03-04-2025 Epithelial cells.squamous LM Ql (Urine sed) 0 SEEN /hpf 0-5 [facility] TSH DL <= 0.005 mIU/L QnOrde red By: Nicola Madison on 03-04-2025 TSH Qn 3.780 uIU/mL 0.300-4.20 0 [facility] Thyroid Stim Hormone (TSH)on 03-04-2025 TSH 3.780 uIU/mL Normal 0.300-4.20 0 [facility] Comment on above: Performed By: #### L 501.9520, L501.9985, L501.5200 ####[facility] [address] [place], [address] Troponin T.cardiac [Mass/vol ume] in Serum or Plasma by High sensitivity methodOrdered By: Chris Ochoa on 03-04-2025 Troponin T.cardiac High sensitivity method [Mass/Vol] 42 ng/L High <22 [facility] Troponin T.cardiac High sensitivity method [Mass/Vol] 45 ng/L High <22 [facility] Troponin T.cardiac High sensitivity method [Mass/Vol] 44 ng/L High <22 [facility] Urinalysis, Completeon 03-04 RBC 5-10 SEEN Normal 0-5 [facility] Comment on above: Order Comment: CLEAN CATCH Performed By: #### L 400.0001 ####[facility] [address] [place], [address] BACTERIA 2+ /hpf Normal None Seen [facility] Comment on above: Order Comment: CLEAN CATCH Performed By: #### L 400.0001 ####[facility] [address] [place], [address] WBC >100 SEEN Normal 0-5 [facility] Comment on above: Order Comment: CLEAN CATCH Performed By: #### L 400.0001 ####[facility] [address] [place], [address] EPI,SQUAMOUS 0 SEEN Normal 0-5 [facility] Comment on above: Order Comment: CLEAN CATCH Performed By: #### L 400.0001 ####[facility] [address] [place], [address] Mucus Ql (Urine sed) [address] [facility] Comment on above: Order Comment: CLEAN CATCH Performed By: #### L 400.0001 ####[facility] [address] [place], [address] Urine clarityOrdered By: Jacob Madison on 03-04-2025 Clarity (U) Cloudy Clear [facility] Urine color determinationOrd ered By: Nicola Madison on 03-04-2025 Color (U) Yellow Yellow [facility] Urine glucose detectionOrder ed By: Nicola Madison on 03-04-2025 Glucose Ql (U) Normal mg/dl Normal [facility] Urine leukocyte esterase det ection by dipstickOrdered By: Nicola Madison on 03-04-2025 Leukocyte esterase Test strip Ql (U) 500 /ul High Negative [facility] Urine pHOrdered By: Nicola stack on 03-04-2025 pH (U) 6.5 [pH] 5.0 - 8.0 [facility] Urine sediment bacteria coun t by microscopy (number/high power field)Ordered By: Nicola Madison on 03-04-2025 Bacteria LM.HPF (Urine sed) [#/Area] 2 /[HPF] None Seen [facility] Urine specific gravity measu rementOrdered By: Nicola Madison on 03-04-2025 Specific gravity (U) [Rel density] 1.010 1.002-1.03 0 [facility] Urine urobilinogen measureme ntOrdered By: Nicola Madison on 03-04-2025 Urobilinogen Ql (U) Normal mg/dl Normal [facility] White blood cell (WBC) count Ordered By: Chris Ochoa on 03-04-2025 WBC (Bld) [#/Vol] 7.6 10*3/uL 4.4-11.0 [facility] White blood cell countOrdere d By: Nicola Madison on 03-04-2025 White blood cell count >100 SEEN /hpf 0-5 [facility] Absolute lymphocyte countOrd ered By: Russ Zamora on 11-06-2024 Lymphocytes Auto (Unsp spec) [#/Vol] 0.82 10*3/uL Low 0.83-4.51 [facility] Absolute neutrophil countOrd ered By: Russ Zamora on 11-06-2024 Neutrophils (Bld) [#/Vol] 8.1 10*3/uL High 2.0-7.7 [facility] Anion gap in Serum or Plasma Ordered By: Russ Wallsnegro on 11-06-2024 Anion gap [Moles/Vol] 10 mmol/L 5-15 [facility] Automated lymphocyte count a s percentage of total leukocytesOrdered By: Russ Wallsnegro on 11-06-2024 Lymphocytes/100 WBC Auto (Unsp spec) 8.1 % Low 19-41 [facility] BUN/creatinine ratioOrdered By: [facility] on 11-06-2024 Urea nitrogen/Creatinine [Mass ratio] 19.3 mg/mg 10- [facility] Basophil percentageOrdered B y: Russ Wallsnegro on 11-06-2024 Basophils/100 WBC (Bld) 0.3 % 0-1 [facility] Bilirubin, totalOrdered By: Russ Wallsnegro on 11-06-2024 Bilirubin [Mass/Vol] 0.46 mg/dL 0.00-1.30 [facility] CBC W/Diff, Automatedon 10-19 Absolute Lymph 0.82 X10 3/uL Low 0.83-4.51 [facility] Comment on above: Performed By: #### L 100.0100, L500.4050, L504.2610 ####[facility] [address] [place], [address] Absolute Neut 8.1 X10 3/uL High 2.0-7.7 [facility] Comment on above: Performed By: #### L 100.0100, L500.4050, L504.2610 ####[facility] [address] [place], [address] Basophils/100 WBC (Bld) 0.3 % Normal 0-1 [facility] Comment on above: Performed By: #### L 100.0100, L500.4050, L504.2610 ####[facility] [address] [place], [address] Eosinophils/100 WBC (Bld) 1.7 % Normal 0-5 [facility] Comment on above: Performed By: #### L 100.0100, L500.4050, L504.2610 ####[facility] [address] [place], [address] Erythrocyte distribution width (RBC) [Ratio] 16.8 % High 11.6-14.6 [facility] Comment on above: Performed By: #### L 100.0100, L500.4050, L504.2610 ####[facility] [address] [place], [address] Hematocrit (Bld) [Volume fraction] 34.2 % Low 40-54 [facility] Comment on above: Performed By: #### L 100.0100, L500.4050, L504.2610 ####[facility] [address] [place], [address] Hemoglobin (Bld) [Mass/Vol] 10.7 g/dL Low 13.0-16.5 [facility] Comment on above: Performed By: #### L 100.0100, L500.4050, L504.2610 ####[facility] [address] [place], [address] IG% 0.500 Normal 0.0-0.9 [facility] Comment on above: Result Comment: IG% - Immature Granulocytes (promyelocytes, myelocytes andmetamyelocytes) > 1% indicates that a LEFT SHIFT is Present. Performed By: #### L 100.0100, L500.4050, L504.2610 ####[facility] [address] [place], [address] Lymphocytes/100 WBC (Bld) 8.1 % Low 19-41 [facility] Comment on above: Performed By: #### L 100.0100, L500.4050, L504.2610 ####[facility] [address] [place], [address] MCH (RBC) [Entitic mass] 27.4 pg Normal 27.0-32.0 [facility] Comment on above: Performed By: #### L 100.0100, L500.4050, L504.2610 ####[facility] [address] [place], [address] MCHC (RBC) [Mass/Vol] 31.3 g/dL Low 32-36 [facility] Comment on above: Performed By: #### L 100.0100, L500.4050, L504.2610 ####[facility] [address] [place], [address] MCV (RBC) [Entitic vol] 87.5 fL Normal 80-94 [facility] Comment on above: Performed By: #### L 100.0100, L500.4050, L504.2610 ####[facility] [address] [place], [address] Monocytes/100 WBC (Bld) 8.8 % Normal 0-10 [facility] Comment on above: Performed By: #### L 100.0100, L500.4050, L504.2610 ####[facility] [address] [place], [address] Neutrophils/100 WBC (Bld) 80.6 % High 47-70 [facility] Comment on above: Performed By: #### L 100.0100, L500.4050, L504.2610 ####[facility] [address] [place], [address] Nucleated RBC (Bld) [#/Vol] 0 10*3/uL Normal 0-5 [facility] Comment on above: Performed By: #### L 100.0100, L500.4050, L504.2610 ####[facility] [address] [place], [address] Platelet mean volume (Bld) [Entitic vol] 10.4 fL Normal 6.2-12.0 [facility] Comment on above: Performed By: #### L 100.0100, L500.4050, L504.2610 ####[facility] [address] [place], [address] Platelets (Bld) [#/Vol] 212 10*3/uL Normal 150-450 [facility] Comment on above: Performed By: #### L 100.0100, L500.4050, L504.2610 ####[facility] [address] [place], [address] RBC (Bld) [#/Vol] 3.91 10*6/uL Low 4.6-6.2 [facility] Comment on above: Performed By: #### L 100.0100, L500.4050, L504.2610 ####[facility] [address] [place], [address] RDW SD 53.5 fl High 35.1-43.9 [facility] Comment on above: Performed By: #### L 100.0100, L500.4050, L504.2610 ####[facility] [address] [place], [address] WBC (Bld) [#/Vol] 10.1 10*3/uL Normal 4.4-11.0 [facility] Comment on above: Performed By: #### L 100.0100, L500.4050, L504.2610 ####[facility] [address] [place], [address] Carbon dioxide, total [Moles /volume] in Central venous bloodOrdered By: Russ Zamora on 11-06-2024 CO2 [Moles/Vol] 25.2 mmol/L 21.0-32.0 [facility] Chloride assayOrdered By: Flores Zamora on 11-06-2024 Chloride [Moles/Vol] 105 mmol/L 98-108 [facility] Comprehensive Metabolic Prof ilon 11-06-2024 Albumin [Mass/Vol] 3.8 g/dL Normal 3.4-4.8 [facility] Comment on above: Performed By: #### L 100.0100, L500.4050, L504.2610 ####[facility] [address] [place], [address] Albumin/Globulin [Mass ratio] 0.9 {ratio} Normal 0.9-2.4 [facility] Comment on above: Performed By: #### L 100.0100, L500.4050, L504.2610 ####[facility] [address] [place], [address] ALK PHOS 72 U/L Normal 40-129 [facility] Comment on above: Performed By: #### L 100.0100, L500.4050, L504.2610 ####[facility] [address] [place], [address] ALT [Catalytic activity/Vol] 10 U/L Normal <=46 [facility] Comment on above: Performed By: #### L 100.0100, L500.4050, L504.2610 ####[facility] [address] [place], [address] AST [Catalytic activity/Vol] 16 U/L Normal <=37 [facility] Comment on above: Performed By: #### L 100.0100, L500.4050, L504.2610 ####[facility] [address] [place], [address] Bilirubin [Mass/Vol] 0.46 mg/dL Normal 0.00-1.30 [facility] Comment on above: Performed By: #### L 100.0100, L500.4050, L504.2610 ####[facility] [address] [place], [address] BUN/CRE 19.3 RATIO Normal 10-20 [facility] Comment on above: Performed By: #### L 100.0100, L500.4050, L504.2610 ####[facility] [address] [place], [address] Calcium [Mass/Vol] 9.1 mg/dL Normal 7.6-11.0 [facility] Comment on above: Performed By: #### L 100.0100, L500.4050, L504.2610 ####[facility] [address] [place], [address] Chloride [Moles/Vol] 105 mmol/L Normal 98-108 [facility] Comment on above: Performed By: #### L 100.0100, L500.4050, L504.2610 ####[facility] [address] [place], [address] CO2 [Moles/Vol] 25.2 mmol/L Normal 21.0-32.0 [facility] Comment on above: Performed By: #### L 100.0100, L500.4050, L504.2610 ####[facility] [address] [place], [address] Creatinine [Mass/Vol] 1.87 mg/dL High 0.70-1.20 [facility] Comment on above: Performed By: #### L 100.0100, L500.4050, L504.2610 ####[facility] [address] [place], [address] ECRCL 32.00 ml/min Low 50-250 [facility] Comment on above: Performed By: #### L 100.0100, L500.4050, L504.2610 ####[facility] [address] [place], [address] GAP 10 Normal 5-15 [facility] Comment on above: Performed By: #### L 100.0100, L500.4050, L504.2610 ####[facility] [address] [place], [address] GFR/1.73 sq M.predicted among non-blacks MDRD (S/P/Bld) [Vol rate/Area] 36 mL/min/{1.73_m2} Low >60 [facility] Comment on above: Result Comment: mL/m in/1.73m2 CKD-EPI Creatinine Equation (2020) Performed By: #### L 100.0100, L500.4050, L504.2610 ####[facility] [address] [place], [address] Globulin (S) [Mass/Vol] 4.1 g/dL Normal 2.2-4.2 [facility] Comment on above: Performed By: #### L 100.0100, L500.4050, L504.2610 ####[facility] [address] [place], [address] Glucose [Mass/Vol] 132 mg/dL High 70-99 [facility] Comment on above: Performed By: #### L 100.0100, L500.4050, L504.2610 ####[facility] [address] [place], [address] Potassium [Moles/Vol] 4.8 mmol/L Normal 3.3-5.1 [facility] Comment on above: Performed By: #### L 100.0100, L500.4050, L504.2610 ####[facility] [address] [place], [address] Sodium [Moles/Vol] 140 mmol/L Normal 133-145 [facility] Comment on above: Performed By: #### L 100.0100, L500.4050, L504.2610 ####[facility] [address] [place], [address] T PROT 7.9 g/dL Normal 5.9-8.4 [facility] Comment on above: Performed By: #### L 100.0100, L500.4050, L504.2610 ####[facility] [address] [place], [address] Urea nitrogen [Mass/Vol] 36 mg/dL High 4-19 [facility] Comment on above: Performed By: #### L 100.0100, L500.4050, L504.2610 ####[facility] [address] [place], [address] Eosinophil percentageOrdered By: Russ Zamora on 11-06-2024 Eosinophils/100 WBC (Bld) 1.7 % 0-5 [facility] Erythrocyte distribution wid th ratioOrdered By: Russ Zamora on 11-06-2024 Erythrocyte distribution width (RBC) [Ratio] 16.8 % High 11.6-14.6 [facility] Erythrocyte distribution wid th standard deviationOrdered By: Russ Zamora on 11-06-2024 Erythrocyte distribution width (RBC) [Entitic vol] 53.5 fL High 35.1-43.9 [facility] Erythrocyte distribution width (RBC) [Ratio] 53.5 fl High 35.1-43.9 [facility] Estimation of creatinine rowdy aranceOrdered By: Russ Zamora on 11-06-2024 Estimated Creatinine Clearance Calc 32.00 ml/min Low 50-250 [facility] GFR/1.73 sq M.predicted kaylyn g non-blacks MDRD (S/P/Bld) [Vol rate/Area]Ordered By: Russ Zamora on 11-06-2024 Estimated GFR (MDRD) Non-Af Amer 36 Low >60 [facility] Comment on above: mL/min/1.73m2 CKD-EP I Creatinine Equation (2020) Glomerular filtration rate ( GFR) estimation/1.73 sq m using serum, plasma, or whole bOrdered By: Russ Zamora on 11-06-2024 GFR/1.73 sq M.predicted among non-blacks MDRD (S/P/Bld) [Vol rate/Area] 36 mL/min/{1.73_m2} Low >60 [facility] Comment on above: mL/min/1.73m2 CKD-EP I Creatinine Equation (2020) Hematocrit Auto (Bld) [Volum e fraction]Ordered By: Russ Zamora on 11-06-2024 Hematocrit (Bld) [Volume fraction] 34.2 % Low 40-54 [facility] Hemoglobin measurementOrdere d By: Russ Zamora on 11-06-2024 Hemoglobin (Bld) [Mass/Vol] 10.7 g/dL Low 13.0-16.5 [facility] Immature granulocytes/100 WB C Auto (Bld)Ordered By: Russ Zamora on 11-06-2024 Immature granulocytes/100 WBC (Bld) 0.500 % 0.0-0.9 [facility] Comment on above: IG% - Immature Granu locytes (promyelocytes, myelocytes and metamyelocytes) > 1% indicates that a LEFT SHIFT is Present. LDHon 11-06-2024 LDH 135 U/L Normal 87-241 [facility] Comment on above: Order Comment: 1 Performed By: #### L 100.0100, L500.4050, L504.2610 ####[facility] [address] [place], [place], [address] Laboratory - Chemistry and C hemistry - challengeOrdered By: Russ Zamora on 11-06-2024 AST [Catalytic activity/Vol] 16 U/L <38 [facility] Lactate dehydrogenase (LDH) measurementOrdered By: Russ Zamora on 11-06-2024 LDH [Catalytic activity/Vol] 135 U/L 87-241 [facility] Lymphocytes Auto (Unsp spec) [#/Vol]Ordered By: Russ Zamora on 11-06-2024 Lymphocytes (Bld) [#/Vol] 0.82 10*3/uL Low 0.83-4.51 [facility] Lymphocytes/100 WBC Auto (Un sp spec)Ordered By: Russ Zamora on 11-06-2024 Lymphocytes/100 WBC (Bld) 8.1 % Low 19-41 [facility] MCV (mean corpuscular volume ) determinationOrdered By: Russ Zamora on 11-06-2024 MCV (RBC) [Entitic vol] 87.5 fL 80-94 [facility] Mean corpuscular hemoglobin (MCH) determinationOrdered By: Russ Zamora on 11-06-2024 MCH (RBC) [Entitic mass] 27.4 pg 27.0-32.0 [facility] Mean corpuscular hemoglobin concentration (MCHC) determinationOrdered By: Russ Zamora on 11-06-2024 MCHC (RBC) [Mass/Vol] 31.3 g/dL Low 32-36 [facility] Mean platelet volume determi nationOrdered By: Russ Zamora on 11-06-2024 Platelet mean volume (Bld) [Entitic vol] 10.4 fL 6.2-12.0 [facility] Monocyte percentageOrdered B y: Russ Zamora on 11-06-2024 Monocytes/100 WBC (Bld) 8.8 % 0-10 [facility] Neutrophil percentageOrdered By: Russ Zamora on 11-06-2024 Neutrophils/100 WBC (Bld) 80.6 % High 47-70 [facility] Nucleated red blood cell per centageOrdered By: Russ aZmora on 11-06-2024 Nucleated RBC/100 WBC (Bld) [Ratio] 0 % 0-5 [facility] Oncology Visit Reporton 10-19 Oncology Visit Report Normal [facility] Platelet countOrdered By: Flores Zamora on 11-06-2024 Platelets (Bld) [#/Vol] 212 10*3/uL 150-450 [facility] Potassium (Unsp spec) [Mass/ Vol]Ordered By: Russ Zamora on 11-06-2024 Potassium [Moles/Vol] 4.8 mmol/L 3.3-5.1 [facility] Potassium measurement (mass/ volume)Ordered By: Russ Zamora on 11-06-2024 Potassium (Unsp spec) [Mass/Vol] 4.8 mmol/L 3.3-5.1 [facility] RBC Auto (Bld) [#/Vol]Ordere d By: Russ Zamora on 11-06-2024 RBC (Bld) [#/Vol] 3.91 10*6/uL Low 4.6-6.2 [facility] Serum creatinine measurement (mass/volume)Ordered By: Russ Zamora on 11-06-2024 Creatinine [Mass/Vol] 1.87 mg/dL High 0.70-1.20 [facility] Serum globulin measurementOr dered By: Russ Zamora on 11-06-2024 Globulin (S) [Mass/Vol] 4.1 g/dL 2.2-4.2 [facility] Serum glucose measurement (m ass/volume)Ordered By: Russ Zamora on 11-06-2024 Glucose [Mass/Vol] 132 mg/dL High 70-99 [facility] Serum or plasma alanine ortiz otransferase (ALT) measurementOrdered By: Russ Zamora on 11-06-2024 ALT [Catalytic activity/Vol] 10 U/L <47 [facility] Serum or plasma albumin kingsley urement (mass/volume)Ordered By: Russ Zamora on 11-06-2024 Albumin [Mass/Vol] 3.8 g/dL 3.4-4.8 [facility] Serum or plasma albumin/glob ulin mass ratioOrdered By: Russ Zamora on 11-06-2024 Albumin/Globulin [Mass ratio] 0.9 {ratio} 0.9-2.4 [facility] Serum or plasma alkaline roosevelt sphatase measurementOrdered By: Russ Zamora on 11-06-2024 ALP [Catalytic activity/Vol] 72 U/L 40-129 [facility] Serum or plasma calcium kingsley urement (mass/volume)Ordered By: Russ Zamora on 11-06-2024 Calcium [Mass/Vol] 9.1 mg/dL 7.6-11.0 [facility] Serum or plasma urea nitroge n measurement (mass/volume)Ordered By: Russ Zamora on 11-06-2024 Urea nitrogen [Mass/Vol] 36 mg/dL High 4-19 [facility] Sodium levelOrdered By: Esau Zamora on 11-06-2024 Sodium [Moles/Vol] 140 mmol/L 133-145 [facility] Total proteinOrdered By: Frantz Zamora on 11-06-2024 Protein [Mass/Vol] 7.9 g/dL 5.9-8.4 [facility] White blood cell (WBC) count Ordered By: Russ Zamora on 11-06-2024 WBC (Bld) [#/Vol] 10.1 10*3/uL 4.4-11.0 [facility] CREATININE FINGERSTICKon Creatinine [Mass/Vol] 1.5 mg/dL High 0.70-1.30 [facility] Comment on above: Performed By: #### L 9100.0200 ####[facility] [address] [place], [place], [id number] GFR/1.73 sq M.predicted among non-blacks MDRD (S/P/Bld) [Vol rate/Area] 48.0000 mL/min/{1.73_m2} Low >60 [facility] Comment on above: Performed By: #### L 9100.0200 ####[facility] [address] [place], [address] CT Chest AND Abd W/ Contrast on 10-30-2024 CT Chest AND Abd W/ Contrast Normal [facility] Creatinine measurement at be dsideOrdered By: Russ Zamora on 10-30-2024 Creatinine [Mass/Vol] 1.5 mg/dL High 0.70-1.30 [facility] EGFROrdered By: Russ Zamora on 10-30-2024 GFR/1.73 sq M.predicted among non-blacks MDRD (S/P/Bld) [Vol rate/Area] 48.0000 mL/min/{1.73_m2} Low >60 [facility] Pulmonary Visit Reporton Pulmonary Visit Report Normal [facility] Hemoglobin A1con 10-21-2024 HbA1c (Bld) [Mass fraction] 6.6 % Normal <=5.6 [facility] Comment on above: Performed By: #### L 501.9985 ####[facility] [address] [place], [place], [id number] Hemoglobin A1c percentageOrd ered By: Tonio Fajardo on 10-20-2024 HbA1c (Bld) [Mass fraction] 6.6 % >5.7 [facility] 6 Minute Walk Teston 10-17-2 025 6 Minute Walk Test Normal [facility] Absolute neutrophil countOrd ered By: Leslie Arriaga on 09-25-2024 Neutrophils (Bld) [#/Vol] 6.7 10*3/uL 2.0-7.7 [facility] BNP (brain natriuretic pepti de measurement)Ordered By: Leslie Arriaga on 09-25-2024 Natriuretic peptide B (Bld) [Mass/Vol] 183.7 pg/mL High 0-100 [facility] BNP,B-Type NATRIURETIC PEPTI Adrienne 09-25-2024 Natriuretic peptide B (Bld) [Mass/Vol] 183.7 pg/mL High 0-100 [facility] Comment on above: Performed By: #### L 100.0100, L500.2500, L503.6620 ####[facility] [address] [place], [address] Basic Metabolic Profile (BMP )on 09-25-2024 BUN/CRE 15.4 RATIO Normal 10-20 [facility] Comment on above: Performed By: #### L 100.0100, L500.2500, L503.6620 ####[facility] [address] [place], [address] CA,Total 9.1 mg/dL Normal 8.5-10.1 [facility] Comment on above: Performed By: #### L 100.0100, L500.2500, L503.6620 ####[facility] [address] [place], [address] Chloride [Moles/Vol] 105 mmol/L Normal 98-107 [facility] Comment on above: Performed By: #### L 100.0100, L500.2500, L503.6620 ####[facility] [address] [place], [address] CO2 [Moles/Vol] 28.0 mmol/L Normal 21.0-32.0 [facility] Comment on above: Performed By: #### L 100.0100, L500.2500, L503.6620 ####[facility] [address] [place], [address] Creatinine [Mass/Vol] 2.21 mg/dL High 0.70-1.30 [facility] Comment on above: Result Comment: The validity of the calculated GFR GFRAA in patients over70 years has not been determined. Clinical correlation isessential. Performed By: #### L 100.0100, L500.2500, L503.6620 ####[facility] [address] [place], [address] EST GFR - AA 37 mL/min Low >60 [facility] Comment on above: Result Comment: Afri can [place] GFR Calc Performed By: #### L 100.0100, L500.2500, L503.6620 ####[facility] [address] [place], [address] GAP 5 Normal 5-15 [facility] Comment on above: Performed By: #### L 100.0100, L500.2500, L503.6620 ####[facility] [address] [place], [address] GFR/1.73 sq M.predicted among non-blacks MDRD (S/P/Bld) [Vol rate/Area] 31 mL/min/{1.73_m2} Low >60 [facility] Comment on above: Result Comment: Non- GFR Calc Performed By: #### L 100.0100, L500.2500, L503.6620 ####[facility] [address] [place], [address] Glucose [Mass/Vol] 127 mg/dL High 74-106 [facility] Comment on above: Result Comment: Fast ing Glucose result greater than or equal to 126 mg/dLsuggests DIABETES MELLITUS per A.D.A. criteria. Performed By: #### L 100.0100, L500.2500, L503.6620 ####[facility] [address] [place], [address] Potassium [Moles/Vol] 4.3 mmol/L Normal 3.5-5.1 [facility] Comment on above: Performed By: #### L 100.0100, L500.2500, L503.6620 ####[facility] [address] [place], [address] Sodium [Moles/Vol] 138 mmol/L Normal 136-145 [facility] Comment on above: Performed By: #### L 100.0100, L500.2500, L503.6620 ####[facility] [address] [place], [address] Urea nitrogen [Mass/Vol] 34 mg/dL High 7-18 [facility] Comment on above: Performed By: #### L 100.0100, L500.2500, L503.6620 ####[facility] [address] [place], [address] Basophil percentageOrdered B y: Leslie Arriaga on 09-25-2024 Basophils/100 WBC (Bld) 0.6 % 0-1 [facility] Blood urea nitrogen (BUN)/cr eatinine ratioOrdered By: Leslie Arriaga on 09-25-2024 Urea nitrogen/Creatinine [Mass ratio] 15.4 mg/mg 10-20 [facility] CBC W/Diff, Automatedon -0 Absolute Lymph 0.91 X10 3/uL Normal 0.83-4.51 [facility] Comment on above: Performed By: #### L 100.0100, L500.2500, L503.6620 ####[facility] [address] [place], [address] Absolute Neut 6.7 X10 3/uL Normal 2.0-7.7 [facility] Comment on above: Performed By: #### L 100.0100, L500.2500, [id number] ####[facility] [address] [place], [address] Basophils/100 WBC (Bld) 0.6 % Normal 0-1 [facility] Comment on above: Performed By: #### L 100.0100, L500.2500, [id number] ####[facility] [address] [place], [address] Eosinophils/100 WBC (Bld) 1.1 % Normal 0-5 [facility] Comment on above: Performed By: #### L 100.0100, L500.2500, [id number] ####[facility] [address] [place], [address] Erythrocyte distribution width (RBC) [Ratio] 16.2 % High 11.6-14.6 [facility] Comment on above: Performed By: #### L 100.0100, L500.2500, [id number] ####[facility] [address] [place], [address] Hematocrit (Bld) [Volume fraction] 36.0 % Low 40-54 [facility] Comment on above: Performed By: #### L 100.0100, L500.2500, L503.6620 ####[facility] [address] [place], [address] Hemoglobin (Bld) [Mass/Vol] 11.1 g/dL Low 13.0-16.5 [facility] Comment on above: Performed By: #### L 100.0100, L500.2500, [id number] ####[facility] [address] [place], [address] IG% 0.700 Normal 0.0-0.9 [facility] Comment on above: Result Comment: IG% - Immature Granulocytes (promyelocytes, myelocytes andmetamyelocytes) > 1% indicates that a LEFT SHIFT is Present. Performed By: #### L 100.0100, L500.2500, L503.6620 ####[facility] [address] [place], [address] Lymphocytes/100 WBC (Bld) 10.4 % Low 19-41 [facility] Comment on above: Performed By: #### L 100.0100, L500.2500, L503.6620 ####[facility] [address] [place], [address] MCH (RBC) [Entitic mass] 27.7 pg Normal 27.0-32.0 [facility] Comment on above: Performed By: #### L 100.0100, L500.2500, L503.6620 ####[facility] [address] [place], [address] MCHC (RBC) [Mass/Vol] 30.8 g/dL Low 32-36 [facility] Comment on above: Performed By: #### L 100.0100, L500.2500, [id number] ####[facility] [address] [place], [address] MCV (RBC) [Entitic vol] 89.8 fL Normal 80-94 [facility] Comment on above: Performed By: #### L 100.0100, L500.2500, [id number] ####[facility] [address] [place], [address] Monocytes/100 WBC (Bld) 10.3 % High 0-10 [facility] Comment on above: Performed By: #### L 100.0100, L500.2500, [id number] ####[facility] [address] [place], [address] Neutrophils/100 WBC (Bld) 76.9 % High 47-70 [facility] Comment on above: Performed By: #### L 100.0100, L500.2500, [id number] ####[facility] [address] [place], [address] Nucleated RBC (Bld) [#/Vol] 0 10*3/uL Normal 0-5 [facility] Comment on above: Performed By: #### L 100.0100, L500.2500, [id number] ####[facility] [address] [place], [address] Platelet mean volume (Bld) [Entitic vol] 10.5 fL Normal 6.2-12.0 [facility] Comment on above: Performed By: #### L 100.0100, L500.2500, L503.6620 ####[facility] [address] [place], [address] Platelets (Bld) [#/Vol] 256 10*3/uL Normal 150-450 [facility] Comment on above: Performed By: #### L 100.0100, L500.2500, L503.6620 ####[facility] [address] [place], [address] RBC (Bld) [#/Vol] 4.01 10*6/uL Low 4.6-6.2 [facility] Comment on above: Performed By: #### L 100.0100, L500.2500, L503.6620 ####[facility] [address] [place], [address] RDW SD 52.7 fl High 35.1-43.9 [facility] Comment on above: Performed By: #### L 100.0100, L500.2500, L503.6620 ####[facility] [address] [place], [address] WBC (Bld) [#/Vol] 8.7 10*3/uL Normal 4.4-11.0 [facility] Comment on above: Performed By: #### L 100.0100, L500.2500, L503.6620 ####[facility] [address] [place], [address] Carbon dioxide measurementOr dered By: Leslie Arriaga on 09-25-2024 CO2 [Moles/Vol] 28.0 mmol/L 21.0-32.0 [facility] Cardiology Visit Reporton Cardiology Visit Report Normal [facility] Chest PA and Lateralon 09-25 Chest PA and Lateral Normal [facility] Chloride measurementOrdered By: Leslie Arriaga on 09-25-2024 Chloride [Moles/Vol] 105 mmol/L 98-107 [facility] Eosinophil percentageOrdered By: Leslie Arriaga on 09-25-2024 Eosinophils/100 WBC (Bld) 1.1 % 0-5 [facility] Erythrocyte distribution wid th ratioOrdered By: Leslie Arriaga on 09-25-2024 Erythrocyte distribution width (RBC) [Ratio] 16.2 % High 11.6-14.6 [facility] Erythrocyte distribution wid th standard deviationOrdered By: Leslie Arriaga on 09-25-2024 Erythrocyte distribution width (RBC) [Entitic vol] 52.7 fL High 35.1-43.9 [facility] Estimated glomerular filtrat ion rate (GFR) AmericanOrdered By: Leslie Arriaga on 09-25-2024 Estimated GFR (MDRD) Amer 37 mL/min Low >60 [facility] Comment on above: GFR Calc Glomerular filtration rate ( GFR) estimationOrdered By: Leslie Arriaga on 09-25-2024 Estimated GFR (MDRD) Non-Af Amer 31 mL/min Low >60 [facility] Comment on above: Non- GFR Calc Glucose measurementOrdered B y: Leslie Arriaga on 09-25-2024 Glucose [Mass/Vol] 127 mg/dL High 74-106 [facility] Comment on above: Fasting Glucose resu lt greater than or equal to 126 mg/dL suggests DIABETES MELLITUS per A.D.A. criteria. Hematocrit Auto (Bld) [Volum e fraction]Ordered By: Leslie Arriaga on 09-25-2024 Hematocrit (Bld) [Volume fraction] 36.0 % Low 40-54 [facility] Hemoglobin measurementOrdere d By: Leslie Arriaga on 09-25-2024 Hemoglobin (Bld) [Mass/Vol] 11.1 g/dL Low 13.0-16.5 [facility] Immature granulocytes/100 WB C Auto (Bld)Ordered By: Leslie Arriaga on 09-25-2024 Immature granulocytes/100 WBC (Bld) 0.700 % 0.0-0.9 [facility] Comment on above: IG% - Immature Granu locytes (promyelocytes, myelocytes and metamyelocytes) > 1% indicates that a LEFT SHIFT is Present. Lymphocytes Auto (Unsp spec) [#/Vol]Ordered By: Leslie Arriaga on 09-25-2024 Lymphocytes (Bld) [#/Vol] 0.91 10*3/uL 0.83-4.51 [facility] Lymphocytes/100 WBC Auto (Un sp spec)Ordered By: Leslie Arriaga on 09-25-2024 Lymphocytes/100 WBC (Bld) 10.4 % Low 19-41 [facility] MCV (mean corpuscular volume ) determinationOrdered By: Leslie Arriaga on 09-25-2024 MCV (RBC) [Entitic vol] 89.8 fL 80-94 [facility] Mean corpuscular hemoglobin (MCH) determinationOrdered By: Leslie Arriaga on 09-25-2024 MCH (RBC) [Entitic mass] 27.7 pg 27.0-32.0 [facility] Mean corpuscular hemoglobin concentration (MCHC) determinationOrdered By: Leslie Arriaga on 09-25-2024 MCHC (RBC) [Mass/Vol] 30.8 g/dL Low 32-36 [facility] Mean platelet volume determi nationOrdered By: Leslie Arriaga on 09-25-2024 Platelet mean volume (Bld) [Entitic vol] 10.5 fL 6.2-12.0 [facility] Monocyte percentageOrdered B y: Leslie Arriaga on 09-25-2024 Monocytes/100 WBC (Bld) 10.3 % High 0-10 [facility] Neutrophil percentageOrdered By: Leslie Arriaga on 09-25-2024 Neutrophils/100 WBC (Bld) 76.9 % High 47-70 [facility] Nucleated red blood cell per centageOrdered By: Leslie Arriaga on 09-25-2024 Nucleated RBC/100 WBC (Bld) [Ratio] 0 % 0-5 [facility] Platelet countOrdered By: Linsey Arriaga on 09-25-2024 Platelets (Bld) [#/Vol] 256 10*3/uL 150-450 [facility] Potassium measurementOrdered By: Leslie Arriaga on 09-25-2024 Potassium [Moles/Vol] 4.3 mmol/L 3.5-5.1 [facility] RBC Auto (Bld) [#/Vol]Ordere d By: Leslie Arriaga on 09-25-2024 RBC (Bld) [#/Vol] 4.01 10*6/uL Low 4.6-6.2 [facility] Serum anion gap measurementO rdered By: Leslie Arriaga on 09-25-2024 Anion gap [Moles/Vol] 5 mmol/L 5-15 [facility] Serum or plasma calcium kingsley urement (mass/volume)Ordered By: Leslie Ariraga on 09-25-2024 Calcium [Mass/Vol] 9.1 mg/dL 8.5-10.1 [facility] Serum or plasma creatinine m easurement (mass/volume)Ordered By: Leslie Arriaga on 09-25-2024 Creatinine [Mass/Vol] 2.21 mg/dL High 0.70-1.30 [facility] Comment on above: The validity of the calculated GFR & GFRAA in patients over 70 years has not been determined. Clinical correlation is essential. Serum or plasma urea nitroge n measurement (mass/volume)Ordered By: Leslie Arriaga on 09-25-2024 Urea nitrogen [Mass/Vol] 34 mg/dL High 7-18 [facility] Sodium levelOrdered By: Brian Arriaga on 09-25-2024 Sodium [Moles/Vol] 138 mmol/L 136-145 [facility] White blood cell (WBC) count Ordered By: Leslie Arriaga on 09-25-2024 WBC (Bld) [#/Vol] 8.7 10*3/uL 4.4-11.0 [facility] Culture, Fungus 8482on 08-04 CUF Normal [facility] Comment on above: Performed By: #### M 600.2000, M100.3000, M100.2000, M100.4001 ####[facility] [address] [place], [address] Culture, Anaerobic Any Sourc talat 07-09-2024 CUAN Prevotella and Porphyromonas species are generally SUSCEPTIBLE to Cefoxitin, Chloramphenicol, and Metronidazole and are usually RESISTANT to Penicillin. Prevotella oralis Beta Lactamase-Reportable Positive Normal [facility] Comment on above: Performed By: #### M 600.2000, M100.3000, M100.2000, M100.4001 ####[facility] [address] [place], [address] Wound Cultureon 07-05-2024 WC Normal [facility] Comment on above: Performed By: #### M 600.2000, M100.3000, M100.2000, M100.4001 ####[facility] [address] [place], [address] Gram Stainon 07-04-2024 GS Positive Normal [facility] Comment on above: Performed By: #### M 600.2000, M100.3000, M100.2000, M100.4001 ####[facility] [address] [place], [address] Bacteria identified Anaer cx Nom (Unsp spec)Ordered By: Joaquim Suárez on 07-03-2024 Anaerobic Culture Prevotella oralis Abnormal [facility] Fungus identified Cx Nom (Un sp spec)Ordered By: Joaquim Suárez on 07-03-2024 Fungal Culture Ann-Marie parapsilosis Abnormal [facility] Gram stainOrdered By: Bladimir Suárez on 07-03-2024 Microscopic observation Gram stain Nom (Unsp spec) [facility] Routine wound cultureOrdered By: Joaquim Suárez on 07-03-2024 Wound Culture Staphylococcus pseudintermediu Abnormal [facility] Lower Ext Art Exam w/o Exerc soco 06-17-2024 Lower Ext Art Exam w/o Exercis Normal [facility] Venous Duplex US - Hi Extre mon 06-17-2024 Venous Duplex US - Hi Extrem Normal [facility] CBC W/Diff, Automatedon - Absolute Lymph 0.94 X10 3/uL Normal 0.83-4.51 [facility] Comment on above: Performed By: #### L 100.0100, L500.4050, L504.2610 ####[facility] [address] [place], [address] Absolute Neut 5.7 X10 3/uL Normal 2.0-7.7 [facility] Comment on above: Performed By: #### L 100.0100, L500.4050, L504.2610 ####[facility] [address] [place], [address] Basophils/100 WBC (Bld) 0.6 % Normal 0-1 [facility] Comment on above: Performed By: #### L 100.0100, L500.4050, L504.2610 ####[facility] [address] [place], [address] Eosinophils/100 WBC (Bld) 2.5 % Normal 0-5 [facility] Comment on above: Performed By: #### L 100.0100, L500.4050, L504.2610 ####[facility] [address] [place], [address] Erythrocyte distribution width (RBC) [Ratio] 16.3 % High 11.6-14.6 [facility] Comment on above: Performed By: #### L 100.0100, L500.4050, L504.2610 ####[facility] [address] [place], [address] Hematocrit (Bld) [Volume fraction] 36.9 % Low 40-54 [facility] Comment on above: Performed By: #### L 100.0100, L500.4050, L504.2610 ####[facility] [address] [place], [address] Hemoglobin (Bld) [Mass/Vol] 11.3 g/dL Low 13.0-16.5 [facility] Comment on above: Performed By: #### L 100.0100, L500.4050, L504.2610 ####[facility] [address] [place], [address] IG% 1.400 High 0.0-0.9 [facility] Comment on above: Result Comment: IG% - Immature Granulocytes (promyelocytes, myelocytes andmetamyelocytes) > 1% indicates that a LEFT SHIFT is Present. Performed By: #### L 100.0100, L500.4050, L504.2610 ####[facility] [address] [place], [address] Lymphocytes/100 WBC (Bld) 11.8 % Low 19-41 [facility] Comment on above: Performed By: #### L 100.0100, L500.4050, L504.2610 ####[facility] [address] [place], [address] MCH (RBC) [Entitic mass] 27.2 pg Normal 27.0-32.0 [facility] Comment on above: Performed By: #### L 100.0100, L500.4050, L504.2610 ####[facility] [address] [place], [address] MCHC (RBC) [Mass/Vol] 30.6 g/dL Low 32-36 [facility] Comment on above: Performed By: #### L 100.0100, L500.4050, L504.2610 ####[facility] [address] [place], [address] MCV (RBC) [Entitic vol] 88.7 fL Normal 80-94 [facility] Comment on above: Performed By: #### L 100.0100, L500.4050, L504.2610 ####[facility] [address] [place], [address] Monocytes/100 WBC (Bld) 11.6 % High 0-10 [facility] Comment on above: Performed By: #### L 100.0100, L500.4050, L504.2610 ####[facility] [address] [place], [address] Neutrophils/100 WBC (Bld) 72.1 % High 47-70 [facility] Comment on above: Performed By: #### L 100.0100, L500.4050, L504.2610 ####[facility] [address] [place], [address] Nucleated RBC (Bld) [#/Vol] 0 10*3/uL Normal 0-5 [facility] Comment on above: Performed By: #### L 100.0100, L500.4050, L504.2610 ####[facility] [address] [place], [address] Platelet mean volume (Bld) [Entitic vol] 9.9 fL Normal 6.2-12.0 [facility] Comment on above: Performed By: #### L 100.0100, L500.4050, L504.2610 ####[facility] [address] [place], [address] Platelets (Bld) [#/Vol] 222 10*3/uL Normal 150-450 [facility] Comment on above: Performed By: #### L 100.0100, L500.4050, L504.2610 ####[facility] [address] [place], [address] RBC (Bld) [#/Vol] 4.16 10*6/uL Low 4.6-6.2 [facility] Comment on above: Performed By: #### L 100.0100, L500.4050, L504.2610 ####[facility] [address] [place], [address] RDW SD 53.2 fl High 35.1-43.9 [facility] Comment on above: Performed By: #### L 100.0100, L500.4050, L504.2610 ####[facility] [address] [place], [address] WBC (Bld) [#/Vol] 8.0 10*3/uL Normal 4.4-11.0 [facility] Comment on above: Performed By: #### L 100.0100, L500.4050, L504.2610 ####[facility] [address] [place], [address] Comprehensive Metabolic Prof [facility] 05-05-2024 Albumin [Mass/Vol] 3.1 g/dL Low 3.2-5.0 [facility] Comment on above: Order Comment: 1 Performed By: #### L 100.0100, L500.4050, L504.2610 ####[facility] [address] [place], [address] Albumin/Globulin [Mass ratio] 0.6 {ratio} Low 0.9-2.4 [facility] Comment on above: Order Comment: 1 Performed By: #### L 100.0100, L500.4050, L504.2610 ####[facility] [address] [place], [address] ALK P 60 U/L Normal 45-117 [facility] Comment on above: Order Comment: 1 Performed By: #### L 100.0100, L500.4050, L504.2610 ####[facility] [address] [place], [address] ALT [Catalytic activity/Vol] 15 U/L Low 16-61 [facility] Comment on above: Order Comment: 1 Performed By: #### L 100.0100, L500.4050, L504.2610 ####[facility] [address] [place], [address] AST [Catalytic activity/Vol] 11 U/L Low 15-37 [facility] Comment on above: Order Comment: 1 Performed By: #### L 100.0100, L500.4050, L504.2610 ####[facility] [address] [place], [address] Bilirubin [Mass/Vol] 0.40 mg/dL Normal 0.20-1.00 [facility] Comment on above: Order Comment: 1 Result Comment: For patients on eltrombopag therapy, use of Dimension [place] TBIL is not recommended. Performed By: #### L 100.0100, L500.4050, L504.2610 ####[facility] [address] [place], [address] BUN/CRE 20.3 RATIO High 10-20 [facility] Comment on above: Order Comment: 1 Performed By: #### L 100.0100, L500.4050, L504.2610 ####[facility] [address] [place], [address] CA,Total 9.3 mg/dL Normal 8.5-10.1 [facility] Comment on above: Order Comment: 1 Performed By: #### L 100.0100, L500.4050, L504.2610 ####[facility] [address] [place], [address] Chloride [Moles/Vol] 104 mmol/L Normal 98-107 [facility] Comment on above: Order Comment: 1 Performed By: #### L 100.0100, L500.4050, L504.2610 ####[facility] [address] [place], [address] CO2 [Moles/Vol] 27.0 mmol/L Normal 21.0-32.0 [facility] Comment on above: Order Comment: 1 Performed By: #### L 100.0100, L500.4050, L504.2610 ####[facility] [address] [place], [address] Creatinine [Mass/Vol] 2.17 mg/dL High 0.70-1.30 [facility] Comment on above: Order Comment: 1 Result Comment: The validity of the calculated GFR GFRAA in patients over70 years has not been determined. Clinical correlation isessential. Performed By: #### L 100.0100, L500.4050, L504.2610 ####[facility] [address] [place], [address] ECRCL 27.63 ml/min Normal [facility] Comment on above: Order Comment: 1 Performed By: #### L 100.0100, L500.4050, L504.2610 ####[facility] [address] [place], [address] EST GFR - AA 38 mL/min Low >60 [facility] Comment on above: Order Comment: 1 Result Comment: Afri can [place] GFR Calc Performed By: #### L 100.0100, L500.4050, L504.2610 ####[facility] [address] [place], [address] GAP 3 Low 5-15 [facility] Comment on above: Order Comment: 1 Performed By: #### L 100.0100, L500.4050, L504.2610 ####[facility] [address] [place], [address] GFR/1.73 sq M.predicted among non-blacks MDRD (S/P/Bld) [Vol rate/Area] 31 mL/min/{1.73_m2} Low >60 [facility] Comment on above: Order Comment: 1 Result Comment: Non- GFR Calc Performed By: #### L 100.0100, L500.4050, L504.2610 ####[facility] [address] [place], [address] Globulin (S) [Mass/Vol] 4.9 g/dL High 2.2-4.2 [facility] Comment on above: Order Comment: 1 Performed By: #### L 100.0100, L500.4050, L504.2610 ####[facility] [address] [place], [address] Glucose [Mass/Vol] 130 mg/dL High 74-106 [facility] Comment on above: Order Comment: 1 Result Comment: Fast ing Glucose result greater than or equal to 126 mg/dLsuggests DIABETES MELLITUS per A.D.A. criteria. Performed By: #### L 100.0100, L500.4050, L504.2610 ####[facility] [address] [place], [address] Potassium [Moles/Vol] 4.8 mmol/L Normal 3.5-5.1 [facility] Comment on above: Order Comment: 1 Performed By: #### L 100.0100, L500.4050, L504.2610 ####[facility] [address] [place], [address] Sodium [Moles/Vol] 134 mmol/L Low 136-145 [facility] Comment on above: Order Comment: 1 Performed By: #### L 100.0100, L500.4050, L504.2610 ####[facility] [address] [place], [address] T PROT 8.0 g/dL Normal 6.4-8.2 [facility] Comment on above: Order Comment: 1 Performed By: #### L 100.0100, L500.4050, L504.2610 ####[facility] [address] [place], [address] Urea nitrogen [Mass/Vol] 44 mg/dL High 7-18 [facility] Comment on above: Order Comment: 1 Performed By: #### L 100.0100, L500.4050, L504.2610 ####[facility] [address] [place], [address] Estimated glomerular filtrat ion rate (GFR) AmericanOrdered By: Russ Zamora on 05-05-2024 Estimated GFR (MDRD) Amer 38 mL/min Low >60 [facility] Comment on above: GFR Calc LDHon 05-05-2024 LDH 126 U/L Normal 87-241 [facility] Comment on above: Order Comment: 1 Performed By: #### L 100.0100, L500.4050, L504.2610 ####[facility] [address] [place], [address] Oncology Visit Reporton 04-20 Oncology Visit Report Normal [facility] CREATININE FINGERSTICKon Creatinine [Mass/Vol] 1.4 mg/dL High 0.70-1.30 [facility] Comment on above: Performed By: #### L 9100.0200 ####[facility] [address] [place], [address] GFR/1.73 sq M.predicted among non-blacks MDRD (S/P/Bld) [Vol rate/Area] 50.0000 mL/min/{1.73_m2} Low >60 [facility] Comment on above: Performed By: #### L 9100.0200 ####[facility] [address] [place], [address] CT Chest AND Abd W/ Contrast on 04-28-2024 CT Chest AND Abd W/ Contrast Normal [facility] Miscellaneous procedureOrder ed By: Russ Zamora on 01-28-2024 Miscellaneous Test See comment [facility] Comment on above: Sent directly to [facility] per ordering physician. Bacteria identified Cx Nom ( Wound)Ordered By: Joaquim Suárez on 12-24-2023 Wound Culture Staphylococcus pseudintermediu [facility] Wound Culture Enterococcus faecalis [facility] Wound Culture Streptococcus pyogenes [facility] Gram stain for investigation of transfusion reactionOrdered By: Joaquim Suárez on 12-24-2023 Microscopic observation Gram stain Nom (Unsp spec) [facility] Absolute lymphocyte countOrd ered By: Russ Zamora on 11-06-2023 Lymphocytes Auto (Unsp spec) [#/Vol] 0.95 10*3/uL 0.83-4.51 [facility] Addendum DocumentOrdered By: Russ Zamora on 11-06-2023 Serum Immunofixation Comments Comment . [facility] Comment on above: Protein electrophore sis scan will follow via computer,mail, or data collection interviewer delivery. Albumin Elph [Mass/Vol]Order ed By: Russ Zamora on 11-06-2023 Albumin [Mass/Vol] 3.2 g/dL 2.9-4.4 [facility] Alpha 1 globulin Elph [Mass/ Vol]Ordered By: Russ Zamora on 11-06-2023 Uirrm-9-Xfosbkmze (PILY) 0.4 g/dL 0.0-0.4 [facility] Wlmvd-7-Xawlpwkqo (PILY) 1.3 g/dL High 0.4-1.0 [facility] Automated lymphocyte count a s percentage of total leukocytesOrdered By: Russ Zamora on 11-06-2023 Lymphocytes/100 WBC Auto (Unsp spec) 10.5 % 19-41 [facility] Basophil percentageOrdered B y: Russ Zamora on 11-06-2023 Basophils/100 WBC (Bld) 0.6 % 0-1 [facility] Bilirubin [Mass/Vol] 0.30 mg/dL 0.20-1.00 [facility] Comment on above: For patients on eltr ombopag therapy, use of Dimension [place] TBIL is not recommended. Chloride [Moles/Vol] 105 mmol/L 98-107 [facility] Eosinophils/100 WBC (Bld) 2.1 % 0-5 [facility] Glucose [Mass/Vol] 106 mg/dL 74-106 [facility] Comment on above: Fasting Glucose resu lt from 100 to 125 mg/dL suggests IMPAIRED HOMEOSTASIS per A.D.A. criteria. Hemoglobin (Bld) [Mass/Vol] 11.5 g/dL 13.0-16.5 [facility] LDH [Catalytic activity/Vol] 170 U/L 87-241 [facility] Monocytes/100 WBC (Bld) 10.7 % 0-10 [facility] Neutrophils (Bld) [#/Vol] 6.8 10*3/uL 2.0-7.7 [facility] Neutrophils/100 WBC (Bld) 75.2 % 47-70 [facility] Potassium [Moles/Vol] 4.3 mmol/L 3.5-5.1 [facility] Protein [Mass/Vol] 8.2 g/dL 6.4-8.2 [facility] Sodium [Moles/Vol] 135 mmol/L 136-145 [facility] WBC (Bld) [#/Vol] 9.0 10*3/uL 4.4-11.0 [facility] Beta globulin Elph [Mass/Vol ]Ordered By: Russ Zamora on 11-06-2023 Beta-Globulins (PILY) 1.0 g/dL 0.7-1.3 [facility] C-reactive protein measureme nt by high sensitivity methodOrdered By: Russ aZmora on 11-06-2023 C-Reactive Protein Extended Range 22.10 mg/L High 0.0-3.0 [facility] Comment on above: C-Reactive Protein ( CRP) provides useful information for thediagnosis, therapy and monitoring of inflammatory processesand associated diseases. For the evaluation of Relative Riskfor Cardiovascular Disease, a High Sensitivity CRP (HSCRP)should be ordered. C-reactive protein measurement by high sensitivity method 22.10 mg/L High 0.0-3.0 [facility] Comment on above: C-Reactive Protein ( CRP) provides useful information for thediagnosis, therapy and monitoring of inflammatory processesand associated diseases. For the evaluation of Relative Riskfor Cardiovascular Disease, a High Sensitivity CRP (HSCRP)should be ordered. Determination of erythrocyte mean corpuscular volume (MCV)Ordered By: Russ Zamora on 11-06-2023 MCV (RBC) [Entitic vol] 88.0 fL 80-94 [facility] Erythrocyte distribution wid th ratioOrdered By: Russ Zamora on 11-06-2023 Erythrocyte distribution width (RBC) [Ratio] 15.5 % 11.6-14.6 [facility] Erythrocyte distribution wid th standard deviationOrdered By: Russ Zamora on 11-06-2023 Erythrocyte distribution width (RBC) [Entitic vol] 49.5 fL 35.1-43.9 [facility] Erythrocyte sedimentation ra teOrdered By: Russ Zamora on 11-06-2023 ESR (Bld) [Velocity] 21 mm/h High 0-20 [facility] Gamma globulin Elph [Mass/Vo l]Ordered By: Russ Zamora on 11-06-2023 Gamma Globulins (PILY) 1.8 g/dL 0.4-1.8 [facility] Hematocrit Auto (Bld) [Volum e fraction]Ordered By: Russ Zamora on 11-06-2023 Hematocrit (Bld) [Volume fraction] 36.8 % 40-54 [facility] Hemoglobin (Reticulocytes) [ Entitic mass]Ordered By: Russ Zamora on 11-06-2023 Reticulocyte Hemoglobin Equivalent 31.4 pg 3035 [facility] Hemoglobin in reticulocytes (mass per reticulocyte)Ordered By: Russ Sera on 11-06-2023 Hemoglobin (Reticulocytes) [Entitic mass] 31.4 pg 30-35 [facility] IgA [Mass/Vol]Ordered By: Flores Zamora on 11-06-2023 Immunoglobulin A 311 mg/dL 61-437 [facility] IgG [Mass/Vol]Ordered By: Flores mariann [facility] on 11-06-2023 Immunoglobulin G 1529 mg/dL 603-1613 [facility] Immature granulocytes/100 WB C Auto (Bld)Ordered By: Russ Zamora on 11-06-2023 Immature granulocytes/100 WBC (Bld) 0.900 % 0.0-0.9 [facility] Comment on above: IG% - Immature Granu locytes (promyelocytes, myelocytes and metamyelocytes) > 1% indicates that a LEFT SHIFT is Present. Immature reticulocyte fracti onOrdered By: Russ Zamora on 11-06-2023 Immature Reticulocyte Fraction 22.10 % High 3.00-15.90 [facility] Immunoglobulin M measurement Ordered By: Russ Zamora on 11-06-2023 Immunoglobulin M 157 mg/dL High 15-143 [facility] Immunoglobulin light chains. kappa [Mass/Vol]Ordered By: Russ Zamora on 11-06-2023 Free [place] Light Chains, Quant 100.3 mg/L High 3.3-19.4 [facility] Immunoglobulin light chains. kappa/Immunoglobulin light chains.lambda (S) [Mass ratio]Ordered By: Russ Zamora on 11-06-2023 Free [place]/Lambda Light Chain Ratio 1.63 0.26-1.65 [facility] Comment on above: Performed at: [address] [id number] Director: Seb Bertrand PhD, Phone: [phone] Interpretation IEP [Interp]O rdered By: Russ Zamora on 11-06-2023 Immunofixation Screen Comment . [facility] Comment on above: No monoclonality det ected. Interpretation of serum or p lasma protein pattern by immunofixation (narrative resultOrdered By: Russ Zamora on 11-06-2023 Protein Fractions Immunofixation Jose Luis [Interp] Not Observed g/dL Not Observed [facility] Laboratory - Chemistry and C hemistry - challengeOrdered By: Russ Zamora on 11-06-2023 Albumin/Globulin [Mass ratio] 0.6 {ratio} 0.9-2.4 [facility] ALP [Catalytic activity/Vol] 62 U/L 45-117 [facility] ALT [Catalytic activity/Vol] 17 U/L 16-61 [facility] CO2 [Moles/Vol] 24.0 mmol/L 21.0-32.0 [facility] Urea nitrogen/Creatinine [Mass ratio] 21.9 mg/mg 10-20 [facility] Laboratory - Hematology and Cell countsOrdered By: Russ Zamora on 11-06-2023 MCH (RBC) [Entitic mass] 27.5 pg 27.0-32.0 [facility] MCHC (RBC) [Mass/Vol] 31.3 g/dL 32-36 [facility] Nucleated RBC/100 WBC (Bld) [Ratio] 0 % 0-5 [facility] Platelet mean volume (Bld) [Entitic vol] 9.1 fL 6.2-12.0 [facility] Platelets (Bld) [#/Vol] 270 10*3/uL 150-450 [facility] Lambda free light chain kingsley urementOrdered By: Russ Zamora on 11-06-2023 Free Lambda Light Chains, Quant 61.5 mg/L High 5.7-26.3 [facility] No Panel InformationOrdered By: Russ Zamora on 11-06-2023 Addendum Document Comment . [facility] Comment on above: Protein electrophore sis scan will follow via computer,mail, or data collection interviewer delivery. Estimated Creatinine Clearance Calc 31.12 ml/min [facility] Estimated GFR (MDRD) Amer 43 mL/min >60 [facility] Comment on above: GFR Calc Estimated GFR (MDRD) Non-Af Amer 35 mL/min >60 [facility] Comment on above: Non- GFR Calc Protein Fractions Immunofixa tion Jose Luis [Interp]Ordered By: Russ Zamora on 11-06-2023 M-Arash (PILY) Not Observed g/dL Not Observed [facility] RBC Auto (Bld) [#/Vol]Ordere d By: Russ Zamora on 11-06-2023 RBC (Bld) [#/Vol] 4.18 10*6/uL 4.6-6.2 [facility] Reticulocytes Auto (Bld) [#/ Vol]Ordered By: Russ Zamora on 11-06-2023 Reticulocyte Count 2.12 % High 0.5-1.5 [facility] Reticulocytes/100 RBC (Bld) 2.12 % High 0.5-1.5 [facility] Serum albumin/globulin ratio Ordered By: Russ Zamora on 11-06-2023 Albumin/Globulin (PILY) 0.8 0.7-1.7 [facility] Serum shguj-0-wfhmckee measu rement by electrophoresisOrdered By: Russ Zamora on 11-06-2023 Alpha 1 globulin Elph [Mass/Vol] 0.4 g/dL 0.0-0.4 [facility] Alpha 1 globulin Elph [Mass/Vol] 1.3 g/dL High 0.4-1.0 [facility] Serum globulin measurement ( mass/volume)Ordered By: Russ Zamora on 11-06-2023 Globulin (S) [Mass/Vol] 4.4 g/dL 2.2-3.9 [facility] Serum immunoglobulin kappa l ight chains/immunoglobulin lambda light chains mass ratioOrdered By: Russ Zamora on 11-06-2023 Immunoglobulin light chains.kappa/Immunoglobu mellissa light chains.lambda (S) [Mass ratio] 1.63 0.26-1.65 [facility] Comment on above: Performed at: [place] [id number] Director: Seb Bertrand PhD, Phone: [phone] Serum or plasma IgA measurem ent (mass/volume)Ordered By: Russ Zamora on 11-06-2023 IgA [Mass/Vol] 311 mg/dL 61-437 [facility] Serum or plasma IgG measurem ent (mass/volume)Ordered By: Russ Zamora on 11-06-2023 IgG [Mass/Vol] 1529 mg/dL [id number] [facility] Serum or plasma beta globuli n measurement by electrophoresis (mass/volume)Ordered By: Russ Zamora on 11-06-2023 Beta globulin Elph [Mass/Vol] 1.0 g/dL 0.7-1.3 [facility] Serum or plasma calcium [place] urement (mass/volume)Ordered By: Russ Zamora on 11-06-2023 Calcium [Mass/Vol] 9.0 mg/dL 8.5-10.1 [facility] Serum or plasma creatinine m easurement (mass/volume)Ordered By: Russ Zamora on 11-06-2023 Creatinine [Mass/Vol] 1.96 mg/dL 0.70-1.30 [facility] Comment on above: The validity of the calculated GFR & GFRAA in patients over 70 years has not been determined. Clinical correlation is essential. Serum or plasma gamma globul in measurement by electrophoresis (mass/volume)Ordered By: Russ Zamora on 11-06-2023 Gamma globulin Elph [Mass/Vol] 1.8 g/dL 0.4-1.8 [facility] Serum or plasma immunoelectr ophoresis interpretation (nominal result)Ordered By: Russ Zamora on 11-06-2023 Interpretation IEP [Interp] Comment . [facility] Comment on above: No monoclonality det ected. Serum or plasma immunoglobul in kappa light chains measurement (mass/volume)Ordered By: [facility] on 11-06-2023 Immunoglobulin light chains.kappa [Mass/Vol] 100.3 mg/L High 3.3-19.4 [facility] Serum or plasma urea nitroge n measurement (mass/volume)Ordered By: [facility] on 11-06-2023 Urea nitrogen [Mass/Vol] 43 mg/dL 7-18 [facility] Serum or plasma uric acid me asurement (mass/volume)Ordered By: [facility] on 11-06-2023 Urate [Mass/Vol] 6.6 mg/dL 3.5-7.2 [facility] Comment on above: The drugs N-Acetylcy steine and Metamizole may falsely depress this assay. Thin prep Papanicolaou smear with manual screeningOrdered By: Russ Zamora on 11-06-2023 Thin prep Papanicolaou smear with manual screening 3.2 g/dL 3.2-5.0 [facility] Thin prep Papanicolaou smear with manual screening 15 U/L 15-37 [facility] Thin prep Papanicolaou smear with manual screening 6 5-15 [facility] Thin prep Papanicolaou smear with manual screening 0.8 0.7-1.7 [facility] Total protein bloodOrdered B y: Russ Walls on 11-06-2023 Protein [Mass/Vol] 7.6 g/dL 6.0-8.5 [facility] Basophil percentageOrdered B y: Russ Zamora on 10-12-2023 Creatinine [Mass/Vol] 1.5 mg/dL 0.70-1.30 [facility] Laboratory - Chemistry and C hemistry - challengeOrdered By: Russ Zamora on 10-12-2023 GFR/1.73 sq M.predicted among non-blacks MDRD (S/P/Bld) [Vol rate/Area] 49.0000 mL/min/{1.73_m2} >60 [facility] Absolute lymphocyte countOrd ered By: Leslie Arriaga on 07-26-2023 Lymphocytes Auto (Unsp spec) [#/Vol] 1.22 10*3/uL 0.83-4.51 [facility] Assessment of wrist artery p atency prior to arterial punctureOrdered By: Lorie Mart on 07-26-2023 Arterial patency Wrist artery --pre arterial puncture Positive [facility] Base excessOrdered By: Obed Mart on 07-26-2023 Base excess Calc (BldV) [Moles/Vol] -1 mmol/L -2-2 [facility] Basophil percentageOrdered B y: Leslie Arriaga on 07-26-2023 Basophils/100 WBC (Bld) 0.7 % 0-1 [facility] Chloride [Moles/Vol] 105 mmol/L 98-107 [facility] Eosinophils/100 WBC (Bld) 1.7 % 0-5 [facility] Glucose [Mass/Vol] 99 mg/dL 74-106 [facility] Neutrophils (Bld) [#/Vol] 9.0 10*3/uL 2.0-7.7 [facility] Neutrophils/100 WBC (Bld) 76.3 % 47-70 [facility] Potassium [Moles/Vol] 4.8 mmol/L 3.5-5.1 [facility] Sodium [Moles/Vol] 135 mmol/L 136-145 [facility] WBC (Bld) [#/Vol] 11.7 10*3/uL 4.4-11.0 [facility] Basophil percentageOrdered B y: Lorie Mart on 07-26-2023 Basophil percentage 24.8 mmol/L 22-26 [facility] Basophils/100 WBC (Bld) 95 % 95-99 [facility] Blood erythrocytes count (nu mber/volume)Ordered By: Leslie Arriaga on 07-26-2023 RBC (Bld) [#/Vol] 4.50 10*6/uL 4.6-6.2 [facility] Blood hemoglobin measurement (mass/volume)Ordered By: Leslie Arriaga on 07-26-2023 Hemoglobin (Bld) [Mass/Vol] 12.5 g/dL 13.0-16.5 [facility] Blood lymphocytes/100 leukoc ytesOrdered By: Leslie Arriaga on 07-26-2023 Lymphocytes/100 WBC (Bld) 10.4 % 19-41 [facility] Blood monocytes/100 leukocyt esOrdered By: Leslie Arriaga on 07-26-2023 Monocytes/100 WBC (Bld) 10.2 % 0-10 [facility] Blood platelet mean volumeOr dered By: Leslie Arriaga on 07-26-2023 Platelet mean volume (Bld) [Entitic vol] 10.6 fL 6.2-12.0 [facility] CO2 (BldA) [Partial pressure ]Ordered By: Lorie Mart on 07-26-2023 CO2 (Bld) [Partial pressure] 42.6 mm[Hg] 35-45 [facility] Determination of erythrocyte mean corpuscular volume (MCV)Ordered By: Leslie Arriaga on 07-26-2023 MCV (RBC) [Entitic vol] 87.6 fL 80-94 [facility] Hematocrit Auto (Bld) [Volum e fraction]Ordered By: Leslie Arriaga on 07-26-2023 Hematocrit (Bld) [Volume fraction] 39.4 % 40-54 [facility] Laboratory - Chemistry and C hemistry - challengeOrdered By: Leslie Arriaga on 07-26-2023 CO2 [Moles/Vol] 28.0 mmol/L 21.0-32.0 [facility] Natriuretic peptide B (Bld) [Mass/Vol] 233.5 pg/mL 0-100 [facility] Urea nitrogen/Creatinine [Mass ratio] 25.4 mg/mg 10-20 [facility] Laboratory - Hematology and Cell countsOrdered By: Leslie Arriaga on 07-26-2023 Erythrocyte distribution width (RBC) [Entitic vol] 52.0 fL 35.1-43.9 [facility] Erythrocyte distribution width (RBC) [Ratio] 16.3 % 11.6-14.6 [facility] Immature granulocytes/100 WBC (Bld) 0.700 % 0.0-0.9 [facility] Comment on above: IG% - Immature Granu locytes (promyelocytes, myelocytes and metamyelocytes) > 1% indicates that a LEFT SHIFT is Present. MCH (RBC) [Entitic mass] 27.8 pg 27.0-32.0 [facility] Nucleated RBC/100 WBC (Bld) [Ratio] 0 % 0-5 [facility] MCHC Auto (RBC) [Mass/Vol]Or dered By: Leslie Arriaga on 07-26-2023 MCHC (RBC) [Mass/Vol] 31.7 g/dL 32-36 [facility] No Panel InformationOrdered By: Leslie Arriaga on 07-26-2023 Estimated GFR (MDRD) Amer 40 mL/min >60 [facility] Comment on above: GFR Calc Estimated GFR (MDRD) Non-Af Amer 33 mL/min >60 [facility] Comment on above: Non- GFR Calc No Panel InformationOrdered By: Lorie Mart on 07-26-2023 Blood Gas Sample Site R Radial [facility] Blood Gas Specimen Type ART [facility] Blood Gas Total CO2 26 mmol/L [facility] Blood Gas Vent Mode Not entered [facility] Oxygen Delivery Device [id number] [facility] Oxygen (BldA) [Partial press ure]Ordered By: Lorie Mart on 07-26-2023 Oxygen (Bld) [Partial pressure] 77 mmHG 75-100 [facility] Platelets bldOrdered By: Markus Arriaga on 07-26-2023 Platelets (Bld) [#/Vol] 264 10*3/uL 150-450 [facility] Serum or plasma calcium [place] urement (mass/volume)Ordered By: Leslie Arriaga on 07-26-2023 Calcium [Mass/Vol] 9.3 mg/dL 8.5-10.1 [facility] Serum or plasma creatinine m easurement (mass/volume)Ordered By: Leslie Arriaga on 07-26-2023 Creatinine [Mass/Vol] 2.09 mg/dL 0.70-1.30 [facility] Comment on above: The validity of the calculated GFR & GFRAA in patients over 70 years has not been determined. Clinical correlation is essential. Serum or plasma urea nitroge n measurement (mass/volume)Ordered By: Leslie Arriaga on 07-26-2023 Urea nitrogen [Mass/Vol] 53 mg/dL 7-18 [facility] Thin prep Papanicolaou smear with manual screeningOrdered By: Leslie Arriaga on 07-26-2023 Thin prep Papanicolaou smear with manual screening 2 5-15 [facility] pH measurementOrdered By: Pj Mart on 07-26-2023 pH (Unsp spec) 7.37 [pH] 7.35-7.45 [facility] Anaerobic cultureOrdered By: Joaquim Suárez on 06-22-2023 Bacteria identified Anaer cx Nom (Unsp spec) No anaerobic bacteria isolated. [facility] Bacteria identified Cx Nom ( Wound)Ordered By: Joaquim Suárez on 06-22-2023 Wound Culture Staphylococcus epidermidis [facility] Wound Culture Corynebacterium jeikeium [facility] Fungus cultureOrdered By: Flores Suárez on 06-22-2023 Fungus identified Cx Nom (Unsp spec) [facility] Gram stain for investigation of transfusion reactionOrdered By: Joaquim Suárez on 06-22-2023 Microscopic observation Gram stain Nom (Unsp spec) [facility] Glucose Glucometer (BldC) [M ass/Vol]Ordered By: Joaquim Suárez on 06-08-2023 Glucose [Mass/Vol] 72 mg/dL 74-106 [facility] Comment on above: MANAGEMENT OF PATIEN T CARE PER NURSING PROTOCOL Absolute lymphocyte countOrd ered By: Russ Zamora on 04-17-2023 Lymphocytes Auto (Unsp spec) [#/Vol] 1.02 10*3/uL 0.83-4.51 [facility] Basophil percentageOrdered B y: Russ Zamora on 04-17-2023 Basophils/100 WBC (Bld) 0.5 % 0-1 [facility] Bilirubin [Mass/Vol] 0.30 mg/dL 0.20-1.00 [facility] Comment on above: For patients on eltr ombopag therapy, use of Dimension [place] TBIL is not recommended. Chloride [Moles/Vol] 102 mmol/L 98-107 [facility] Eosinophils/100 WBC (Bld) 2.6 % 0-5 [facility] Glucose [Mass/Vol] 209 mg/dL 74-106 [facility] Comment on above: Glucose result great er than or equal to 200 mg/dLsuggests DIABETES MELLITUS per A.D.A. criteria. LDH [Catalytic activity/Vol] 152 U/L 87-241 [facility] Neutrophils (Bld) [#/Vol] 6.0 10*3/uL 2.0-7.7 [facility] Neutrophils/100 WBC (Bld) 74.2 % 47-70 [facility] Potassium [Moles/Vol] 4.3 mmol/L 3.5-5.1 [facility] Protein [Mass/Vol] 7.8 g/dL 6.4-8.2 [facility] Sodium [Moles/Vol] 136 mmol/L 136-145 [facility] WBC (Bld) [#/Vol] 8.1 10*3/uL 4.4-11.0 [facility] Blood erythrocytes count (nu mber/volume)Ordered By: Russ Zamora on 04-17-2023 RBC (Bld) [#/Vol] 4.45 10*6/uL 4.6-6.2 [facility] Blood hemoglobin measurement (mass/volume)Ordered By: Russ Zamora on 04-17-2023 Hemoglobin (Bld) [Mass/Vol] 12.3 g/dL 13.0-16.5 [facility] Blood lymphocytes/100 leukoc ytesOrdered By: Russ Zamora on 04-17-2023 Lymphocytes/100 WBC (Bld) 12.6 % 19-41 [facility] Blood monocytes/100 leukocyt esOrdered By: Russ Zamora on 04-17-2023 Monocytes/100 WBC (Bld) 9.4 % 0-10 [facility] Blood platelet mean volumeOr dered By: Russ Zamora on 04-17-2023 Platelet mean volume (Bld) [Entitic vol] 9.5 fL 6.2-12.0 [facility] Determination of erythrocyte mean corpuscular volume (MCV)Ordered By: Russ Zamora on 04-17-2023 MCV (RBC) [Entitic vol] 89.9 fL 80-94 [facility] Hematocrit Auto (Bld) [Volum e fraction]Ordered By: Russ Zamora on 08-29-2023 Hematocrit (Bld) [Volume fraction] 40.0 % 40-54 [facility] Laboratory - Chemistry and C hemistry - challengeOrdered By: Russ Zamora on 04-17-2023 ALP [Catalytic activity/Vol] 58 U/L 45-117 [facility] ALT [Catalytic activity/Vol] 21 U/L 16-61 [facility] CO2 [Moles/Vol] 27.0 mmol/L 21.0-32.0 [facility] Globulin (S) [Mass/Vol] 4.5 g/dL 2.2-4.2 [facility] Urea nitrogen/Creatinine [Mass ratio] 20.3 mg/mg 10-20 [facility] Laboratory - Hematology and Cell countsOrdered By: Russ Zamora on 04-17-2023 Erythrocyte distribution width (RBC) [Entitic vol] 54.4 fL 35.1-43.9 [facility] Erythrocyte distribution width (RBC) [Ratio] 16.5 % 11.6-14.6 [facility] Immature granulocytes/100 WBC (Bld) 0.700 % 0.0-0.9 [facility] Comment on above: IG% - Immature Granu locytes (promyelocytes, myelocytes and metamyelocytes) > 1% indicates that a LEFT SHIFT is Present. MCH (RBC) [Entitic mass] 27.6 pg 27.0-32.0 [facility] Nucleated RBC/100 WBC (Bld) [Ratio] 0 % 0-5 [facility] MCHC Auto (RBC) [Mass/Vol]Or dered By: Russ Zamora on 04-17-2023 MCHC (RBC) [Mass/Vol] 30.8 g/dL 32-36 [facility] No Panel InformationOrdered By: Russ Zamora on 04-17-2023 Estimated Creatinine Clearance Calc 29.38 ml/min [facility] Estimated GFR (MDRD) Amer 45 mL/min >60 [facility] Comment on above: GFR Calc Estimated GFR (MDRD) Non-Af Amer 37 mL/min >60 [facility] Comment on above: Non- GFR Calc Platelets bldOrdered By: Frantz Zamora on 04-17-2023 Platelets (Bld) [#/Vol] 214 10*3/uL 150-450 [facility] Serum or plasma albumin [place] urement (mass/volume)Ordered By: Russ Zamora on 04-17-2023 Albumin [Mass/Vol] 3.3 g/dL 3.2-5.0 [facility] Serum or plasma albumin/glob ulin mass ratioOrdered By: Russ Zamora on 04-17-2023 Albumin/Globulin [Mass ratio] 0.7 {ratio} 0.9-2.4 [facility] Serum or plasma calcium [place] urement (mass/volume)Ordered By: Russ Zamora on 04-17-2023 Calcium [Mass/Vol] 9.1 mg/dL 8.5-10.1 [facility] Serum or plasma creatinine m easurement (mass/volume)Ordered By: Russ Zamora on 04-17-2023 Creatinine [Mass/Vol] 1.87 mg/dL 0.70-1.30 [facility] Comment on above: The validity of the calculated GFR & GFRAA in patients over 70 years has not been determined. Clinical correlation is essential. Serum or plasma urea nitroge n measurement (mass/volume)Ordered By: Russ Zamora on 04-17-2023 Urea nitrogen [Mass/Vol] 38 mg/dL 7-18 [facility] Thin prep Papanicolaou smear with manual screeningOrdered By: Russ Zamora on 04-17-2023 Thin prep Papanicolaou smear with manual screening 16 U/L 15-37 [facility] Thin prep Papanicolaou smear with manual screening 7 5-15 [facility] Basophil percentageOrdered B y: Russ Zamora on 04-10-2023 Creatinine [Mass/Vol] 1.1 mg/dL 0.70-1.30 [facility] No Panel InformationOrdered By: Russ Zamora on 04-10-2023 Bedside Estimated GFR (eGFR) > 60.0000 mL/min >60 [facility] Anaerobic cultureOrdered By: Bonny Glynn on 01-13-2023 Bacteria identified Anaer cx Nom (Unsp spec) No anaerobic bacteria isolated. [facility] Bacteria identified Cx Nom ( Wound)Ordered By: Bonny Glynn on 01-11-2023 Wound Culture Staphylococcus pseudintermediu [facility] Gram stain for investigation of transfusion reactionOrdered By: Bonny Glynn on 01-09-2023 Microscopic observation Gram stain Nom (Unsp spec) [facility] Anaerobic cultureOrdered By: Bonny Glynn on 01-08-2023 Bacteria identified Anaer cx Nom (Unsp spec) No anaerobic bacteria isolated. [facility] Bacteria identified Cx Nom ( Wound)Ordered By: Bonny Glynn on 01-08-2023 Wound Culture Staphylococcus pseudintermediu [facility] Gram stain for investigation of transfusion reactionOrdered By: Bonny Glynn on 01-08-2023 Microscopic observation Gram stain Nom (Unsp spec) [facility] Laboratory - Microbiology an d Antimicrobial susceptibilityOrdered By: Dr. Ochoa on 01-05-2023 Bacteria identified Cx Nom (Bld) No growth in 5 days. [facility] Culture, urineOrdered By: Dr Marianna Ochoa on 01-02-2023 Bacteria identified Cx Nom (U) Culture exhibits no growth. [facility] Influenza virus A and B and SARS-CoV-2 (COVID-19) Ag panel - Upper respiratory specimOrdered By: Dr. Ochoa on 12-31-2022 SARS-CoV-2 & FLU Antigen (Rapid) Influenzae A [facility] Absolute lymphocyte countOrd ered By: Dr. Ochoa on 12-30-2022 Lymphocytes Auto (Unsp spec) [#/Vol] 0.68 10*3/uL 0.83-4.51 [facility] Basophil percentageOrdered B y: Dr. Ochoa on 12-30-2022 Basophil percentage 0-5 SEEN /hpf 0-5 [facility] Basophils/100 WBC (Bld) 0.5 % 0-1 [facility] Bilirubin [Mass/Vol] 0.50 mg/dL 0.20-1.00 [facility] Comment on above: For patients on eltr ombopag therapy, use of Dimension [place] TBIL is not recommended. Chloride [Moles/Vol] 102 mmol/L 98-107 [facility] Eosinophils/100 WBC (Bld) 0.2 % 0-5 [facility] Glucose [Mass/Vol] 119 mg/dL 74-106 [facility] Comment on above: Fasting Glucose resu lt from 100 to 125 mg/dL suggests IMPAIRED HOMEOSTASIS per A.D.A. criteria. Lactate [Moles/Vol] 1.4 mmol/L 0.4-2.0 [facility] Neutrophils (Bld) [#/Vol] 8.8 10*3/uL 2.0-7.7 [facility] Neutrophils/100 WBC (Bld) 83.3 % 47-70 [facility] Potassium [Moles/Vol] 5.2 mmol/L 3.5-5.1 [facility] Protein [Mass/Vol] 8.2 g/dL 6.4-8.2 [facility] Sodium [Moles/Vol] 134 mmol/L 136-145 [facility] WBC (Bld) [#/Vol] 10.6 10*3/uL 4.4-11.0 [facility] Bilirubin Test strip Ql (U)O rdered By: Dr. Ochoa on 12-30-2022 Bilirubin Ql (U) Negative Negative [facility] Blood erythrocytes count (nu mber/volume)Ordered By: Dr. Ochoa on 12-30-2022 RBC (Bld) [#/Vol] 4.36 10*6/uL 4.6-6.2 [facility] Blood hemoglobin measurement (mass/volume)Ordered By: Dr. Ochoa on 12-30-2022 Hemoglobin (Bld) [Mass/Vol] 12.1 g/dL 13.0-16.5 [facility] Blood lymphocytes/100 leukoc ytesOrdered By: Dr. Ochoa on 12-30-2022 Lymphocytes/100 WBC (Bld) 6.4 % 19-41 [facility] Blood monocytes/100 leukocyt esOrdered By: Dr. Ochoa on 12-30-2022 Monocytes/100 WBC (Bld) 9.1 % 0-10 [facility] Blood platelet mean volumeOr dered By: Dr. Ochoa on 12-30-2022 Platelet mean volume (Bld) [Entitic vol] 10.2 fL 6.2-12.0 [facility] Culture, urineOrdered By: Chino Ochoa on 12-30-2022 Bacteria identified Cx Nom (U) Culture exhibits no growth. [facility] Determination of erythrocyte mean corpuscular volume (MCV)Ordered By: Dr. Ochoa on 12-30-2022 MCV (RBC) [Entitic vol] 87.2 fL 80-94 [facility] Hematocrit Auto (Bld) [Volum e fraction]Ordered By: Dr. Ochoa on 12-30-2022 Hematocrit (Bld) [Volume fraction] 38.0 % 40-54 [facility] INR in Blood by Coagulation assayOrdered By: Dr. Ochoa on 12-30-2022 INR Coag (Bld) [Relative time] 1.3 {INR} [facility] Influenza virus A and B and SARS-CoV-2 (COVID-19) Ag panel - Upper respiratory specimOrdered By: Chris Ochoa on 12-30-2022 SARS-CoV-2 & FLU Antigen (Rapid) Influenzae A [facility] Ketones Test strip Ql (U)Ord ered By: Dr. Ochoa on 12-30-2022 Ketones Ql (U) Negative Negative [facility] Laboratory - Chemistry and C hemistry - challengeOrdered By: Dr. Ochoa on 12-30-2022 ALP [Catalytic activity/Vol] 53 U/L 45-117 [facility] ALT [Catalytic activity/Vol] 22 U/L 16-61 [facility] CO2 [Moles/Vol] 25.0 mmol/L 21.0-32.0 [facility] Globulin (S) [Mass/Vol] 4.7 g/dL 2.2-4.2 [facility] Urea nitrogen/Creatinine [Mass ratio] 22.0 mg/mg 10-20 [facility] Laboratory - CoagulationOrde red By: Dr. Ochoa on 12-30-2022 aPTT Coag (Bld) [Time] 38.9 s 24.1-36.2 [facility] PT Coag (PPP) [Time] 15.8 s 11.7-14.9 [facility] Laboratory - Hematology and Cell countsOrdered By: Dr. Ochoa on 12-30-2022 Erythrocyte distribution width (RBC) [Entitic vol] 50.5 fL 35.1-43.9 [facility] Erythrocyte distribution width (RBC) [Ratio] 15.9 % 11.6-14.6 [facility] Immature granulocytes/100 WBC (Bld) 0.500 % 0.0-0.9 [facility] Comment on above: IG% - Immature Granu locytes (promyelocytes, myelocytes and metamyelocytes) > 1% indicates that a LEFT SHIFT is Present. MCH (RBC) [Entitic mass] 27.8 pg 27.0-32.0 [facility] Nucleated RBC/100 WBC (Bld) [Ratio] 0 % 0-5 [facility] Laboratory - Microbiology an d Antimicrobial susceptibilityOrdered By: Chris Ochoa on 12-30-2022 Bacteria identified Cx Nom (Bld) No growth in 5 days. [facility] MCHC Auto (RBC) [Mass/Vol]Or dered By: Dr. Ochoa on 12-30-2022 MCHC (RBC) [Mass/Vol] 31.8 g/dL 32-36 [facility] Mucus LM Ql (Urine sed)Order ed By: Dr. Ochoa on 12-30-2022 Mucus Ql (Urine sed) 0 SEEN /hpf [facility] Nitrite Test strip Ql (U)Ord ered By: Dr. Ochoa on 12-30-2022 Nitrite Ql (U) Negative Negative [facility] No Panel InformationOrdered By: Dr. Ochoa on 12-30-2022 Estimated Creatinine Clearance Calc 27.91 ml/min [facility] Estimated GFR (MDRD) Amer 42 mL/min >60 [facility] Comment on above: GFR Calc Estimated GFR (MDRD) Non-Af Amer 35 mL/min >60 [facility] Comment on above: Non- GFR Calc Platelets bldOrdered By: Dr. Ochoa on 12-30-2022 Platelets (Bld) [#/Vol] 210 10*3/uL 150-450 [facility] Protein Test strip Ql (U)Ord ered By: Dr. Ochoa on 12-30-2022 Protein Ql (U) 100 mg/dl Negative [facility] Serum or plasma albumin [place] urement (mass/volume)Ordered By: Dr. Ochoa on 12-30-2022 Albumin [Mass/Vol] 3.5 g/dL 3.2-5.0 [facility] Serum or plasma albumin/glob ulin mass ratioOrdered By: Dr. Ochoa on 12-30-2022 Albumin/Globulin [Mass ratio] 0.7 {ratio} 0.9-2.4 [facility] Serum or plasma calcium [place] urement (mass/volume)Ordered By: Dr. Ochoa on 12-30-2022 Calcium [Mass/Vol] 9.2 mg/dL 8.5-10.1 [facility] Serum or plasma creatinine m easurement (mass/volume)Ordered By: Dr. Ochoa on 12-30-2022 Creatinine [Mass/Vol] 2.00 mg/dL 0.70-1.30 [facility] Comment on above: The validity of the calculated GFR & GFRAA in patients over 70 years has not been determined. Clinical correlation is essential. Serum or plasma urea nitroge n measurement (mass/volume)Ordered By: Dr. Ochoa on 12-30-2022 Urea nitrogen [Mass/Vol] 44 mg/dL 7-18 [facility] Squamous epithelial cells de tection in urine sediment by light microscopyOrdered By: Dr. Ochoa on 12-30-2022 Epithelial cells.squamous LM Ql (Urine sed) 0 SEEN /hpf 0-5 [facility] Thin prep Papanicolaou smear with manual screeningOrdered By: Dr. Ochoa on 12-30-2022 Thin prep Papanicolaou smear with manual screening 22 U/L 15-37 [facility] Thin prep Papanicolaou smear with manual screening 7 5-15 [facility] Urine blood detectionOrdered By: Dr. Ochoa on 12-30-2022 RBC Ql (U) 25 /ul Negative [facility] RBC Ql (U) 0 SEEN /hpf 0-5 [facility] Urine clarityOrdered By: Dr. Ochoa on 12-30-2022 Clarity (U) Clear Clear [facility] Urine color determinationOrd ered By: Dr. Ochoa on 12-30-2022 Color (U) Yellow Yellow [facility] Urine glucose detectionOrder ed By: Dr. Ochoa on 12-30-2022 Glucose Ql (U) Normal mg/dl Normal [facility] Urine leukocyte esterase det ection by dipstickOrdered By: Dr. Ochoa on 12-30-2022 Leukocyte esterase Test strip Ql (U) 25 /ul Negative [facility] Urine pHOrdered By: Dr. Amy chowdhury on 12-30-2022 pH (U) 7.0 [pH] 5.0 - 8.0 [facility] Urine sediment bacteria coun t by microscopy (number/high power field)Ordered By: Dr. Ochoa on 12-30-2022 Bacteria LM.HPF (Urine sed) [#/Area] 0 /[HPF] None Seen [facility] Urine specific gravity measu rementOrdered By: Dr. Ochoa on 12-30-2022 Specific gravity (U) [Rel density] 1.005 1.002-1.03 0 [facility] Urobilinogen Auto test strip Ql (U)Ordered By: Dr. Ohcoa on 12-30-2022 Urobilinogen Ql (U) Normal mg/dl Normal [facility] Absolute lymphocyte countOrd ered By: Dr. Zamora on 10-16-2022 Lymphocytes Auto (Unsp spec) [#/Vol] 1.25 10*3/uL 0.83-4.51 [facility] Basophil percentageOrdered B y: Dr. Zamora on 10-16-2022 Basophils/100 WBC (Bld) 0.6 % 0-1 [facility] Bilirubin [Mass/Vol] 0.30 mg/dL 0.20-1.00 [facility] Comment on above: For patients on eltr ombopag therapy, use of Dimension [place] TBIL is not recommended. Chloride [Moles/Vol] 106 mmol/L 98-107 [facility] Eosinophils/100 WBC (Bld) 1.4 % 0-5 [facility] Glucose [Mass/Vol] 225 mg/dL 74-106 [facility] Comment on above: Glucose result great er than or equal to 200 mg/dLsuggests DIABETES MELLITUS per A.D.A. criteria. LDH [Catalytic activity/Vol] 135 U/L 87-241 [facility] Neutrophils (Bld) [#/Vol] 5.1 10*3/uL 2.0-7.7 [facility] Neutrophils/100 WBC (Bld) 70.2 % 47-70 [facility] Potassium [Moles/Vol] 4.5 mmol/L 3.5-5.1 [facility] Protein [Mass/Vol] 7.8 g/dL 6.4-8.2 [facility] Sodium [Moles/Vol] 139 mmol/L 136-145 [facility] WBC (Bld) [#/Vol] 7.3 10*3/uL 4.4-11.0 [facility] Blood erythrocytes count (nu mber/volume)Ordered By: Dr. Zamora on 10-16-2022 RBC (Bld) [#/Vol] 3.94 10*6/uL 4.6-6.2 [facility] Blood hemoglobin measurement (mass/volume)Ordered By: Dr. Zamora on 10-16-2022 Hemoglobin (Bld) [Mass/Vol] 11.5 g/dL 13.0-16.5 [facility] Blood lymphocytes/100 leukoc ytesOrdered By: Dr. Zamora on 10-16-2022 Lymphocytes/100 WBC (Bld) 17.2 % 19-41 [facility] Blood monocytes/100 leukocyt esOrdered By: Dr. Zamora on 10-16-2022 Monocytes/100 WBC (Bld) 9.8 % 0-10 [facility] Blood platelet mean volumeOr dered By: Dr. Zamora on 10-16-2022 Platelet mean volume (Bld) [Entitic vol] 9.9 fL 6.2-12.0 [facility] Determination of erythrocyte mean corpuscular volume (MCV)Ordered By: Dr. Zamora on 10-16-2022 MCV (RBC) [Entitic vol] 91.1 fL 80-94 [facility] Hematocrit Auto (Bld) [Volum e fraction]Ordered By: Dr. Zamora on 10-16-2022 Hematocrit (Bld) [Volume fraction] 35.9 % 40-54 [facility] Laboratory - Chemistry and C hemistry - challengeOrdered By: Dr. Zamora on 10-16-2022 ALP [Catalytic activity/Vol] 52 U/L 45-117 [facility] ALT [Catalytic activity/Vol] 19 U/L 16-61 [facility] CO2 [Moles/Vol] 26.0 mmol/L 21.0-32.0 [facility] Globulin (S) [Mass/Vol] 4.5 g/dL 2.2-4.2 [facility] Urea nitrogen/Creatinine [Mass ratio] 17.5 mg/mg 10-20 [facility] Laboratory - Hematology and Cell countsOrdered By: Dr. Zamora on 10-16-2022 Erythrocyte distribution width (RBC) [Entitic vol] 50.4 fL 35.1-43.9 [facility] Erythrocyte distribution width (RBC) [Ratio] 15.2 % 11.6-14.6 [facility] Immature granulocytes/100 WBC (Bld) 0.800 % 0.0-0.9 [facility] Comment on above: IG% - Immature Granu locytes (promyelocytes, myelocytes and metamyelocytes) > 1% indicates that a LEFT SHIFT is Present. MCH (RBC) [Entitic mass] 29.2 pg 27.0-32.0 [facility] Nucleated RBC/100 WBC (Bld) [Ratio] 0 % 0-5 [facility] MCHC Auto (RBC) [Mass/Vol]Or dered By: Dr. Zamora on 10-16-2022 MCHC (RBC) [Mass/Vol] 32.0 g/dL 32-36 [facility] No Panel InformationOrdered By: Dr. Zamora on 10-16-2022 Estimated GFR (MDRD) Amer 45 mL/min >60 [facility] Comment on above: GFR Calc Estimated GFR (MDRD) Non-Af Amer 37 mL/min >60 [facility] Comment on above: Non- GFR Calc Platelets bldOrdered By: Dr. Zamora on 10-16-2022 Platelets (Bld) [#/Vol] 193 10*3/uL 150-450 [facility] Serum or plasma albumin [place] urement (mass/volume)Ordered By: Dr. Zamora on 10-16-2022 Albumin [Mass/Vol] 3.3 g/dL 3.2-5.0 [facility] Serum or plasma albumin/glob ulin mass ratioOrdered By: Dr. Zamora on 10-16-2022 Albumin/Globulin [Mass ratio] 0.7 {ratio} 0.9-2.4 [facility] Serum or plasma calcium [place] urement (mass/volume)Ordered By: Dr. Zamora on 10-16-2022 Calcium [Mass/Vol] 9.3 mg/dL 8.5-10.1 [facility] Serum or plasma creatinine m easurement (mass/volume)Ordered By: Dr. Zamora on 10-16-2022 Creatinine [Mass/Vol] 1.89 mg/dL 0.70-1.30 [facility] Comment on above: The validity of the calculated GFR & GFRAA in patients over 70 years has not been determined. Clinical correlation is essential. Serum or plasma urea nitroge n measurement (mass/volume)Ordered By: Dr. Zamora on 10-16-2022 Urea nitrogen [Mass/Vol] 33 mg/dL 7-18 [facility] Thin prep Papanicolaou smear with manual screeningOrdered By: Dr. Zamora on 10-16-2022 Thin prep Papanicolaou smear with manual screening 17 U/L 15-37 [facility] Thin prep Papanicolaou smear with manual screening 7 5-15 [facility] Basophil percentageOrdered B y: Dr. Zamora on 10-09-2022 Creatinine [Mass/Vol] 1.4 mg/dL 0.70-1.30 [facility] Laboratory - Chemistry and C hemistry - challengeOrdered By: Dr. 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 [facility] Bilirubin Test strip Ql (U)O rdered By: Bonny Glynn on 10-02-2022 Bilirubin Ql (U) Negative Negative [facility] Ketones Test strip Ql (U)Ord ered By: Bonny Glynn on 10-02-2022 Ketones Ql (U) Negative Negative [facility] Nitrite Test strip Ql (U)Ord ered By: Bonny Glynn on 10-02-2022 Nitrite Ql (U) Positive Negative [facility] Protein Test strip Ql (U)Ord ered By: Bonny Glynn on 10-02-2022 Protein Ql (U) 100 mg/dl Negative [facility] Urine blood detectionOrdered By: Bonny Glynn on 10-02-2022 RBC Ql (U) 25 /ul Negative [facility] Urine clarityOrdered By: Ysabel Glynn on 10-02-2022 Clarity (U) Cloudy Clear [facility] Urine color determinationOrd ered By: Bonny Glynn on 10-02-2022 Color (U) Yellow Yellow [facility] Urine glucose detectionOrder ed By: Bonny Glynn on 10-02-2022 Glucose Ql (U) 50 mg/dl Normal [facility] Urine leukocyte esterase det ection by dipstickOrdered By: Bonny Glynn on 10-02-2022 Leukocyte esterase Test strip Ql (U) 500 /ul Negative [facility] Urine pHOrdered By: Bonny orosco on 10-02-2022 pH (U) 6.0 [pH] 5.0 - 8.0 [facility] Urine specific gravity measu rementOrdered By: Bonny Glynn on 10-02-2022 Specific gravity (U) [Rel density] 1.010 1.002-1.03 0 [facility] Urobilinogen Auto test strip Ql (U)Ordered By: Bonny Glynn on 10-02-2022 Urobilinogen Ql (U) Normal mg/dl Normal [facility] Adriana 07-28-2022 TASIA Telephone (ANDRADE) -- PEDRO HILLMAN ([id number]) 1945 M Date Time Provider Department 07/28/22 JESSIE RODRIGUEZ ANTWON During your visit today, we recorded the [...] Units by mouth once daily. - fish oil/borage/flax/om3,6,9 1 (OMEGA 3-6-9 COMPLEX ORAL) Take by mouth. - lutein 10 mg tab Take by mouth. - MULTIVITAMIN ORAL Take by mouth. Problem List As Of Date 07/28/2022 Noted Resolved Osteoarthrosis, unspecified whether generalized*04/14/2014 Encounter Status:Closed by JESSIE RODRIGUEZ on 08/09/22 Normal [facility] Anaerobic cultureOrdered By: Bonny Glynn on 07-21-2022 Bacteria identified Anaer cx Nom (Unsp spec) No anaerobic bacteria isolated. [facility] Bacteria identified Cx Nom ( Wound)Ordered By: Bonny Glynn on 07-20-2022 Wound Culture Staphylococcus pseudintermediu [facility] Gram stain for investigation of transfusion reactionOrdered By: Bonny Glynn on 07-19-2022 Microscopic observation Gram stain Nom (Unsp spec) [facility] No Panel InformationOrdered By: Dr. Choi on 06-01-2022 Estimated GFR (MDRD) Amer 63 mL/min >60 [facility] Comment on above: GFR Calc Estimated GFR (MDRD) Non-Af Amer 52 mL/min >60 [facility] Comment on above: Non- GFR Calc Serum or plasma creatinine m easurement (mass/volume)Ordered By: Dr. Choi on 06-01-2022 Creatinine [Mass/Vol] 1.40 mg/dL 0.70-1.30 [facility] Comment on above: The validity of the calculated GFR & GFRAA in patients over 70 years has not been determined. Clinical correlation is essential. Basophil percentageon 2021 Basophil percentage < 0.9 mg/dL 0.70-1.30 [facility] Work Phone: No Panel Informationon 05-22 Bedside Estimated GFR (eGFR) > 60.0000 mL/min >60 [facility] Work Phone: Absolute lymphocyte counton 04-14-2022 Lymphocytes Auto (Unsp spec) [#/Vol] 0.64 10*3/uL 0.83-4.51 [facility] Work Phone: Basophil percentageon 2021 Basophil percentage 0 SEEN /hpf 0-5 [facility] Work Phone: Basophils/100 WBC (Bld) 0.3 % 0-1 [facility] Work Phone: Bilirubin [Mass/Vol] 0.50 mg/dL 0.20-1.00 [facility] Work Phone: Comment on above: For patients on eltr ombopag therapy, use of Dimension [place] TBIL is not recommended. Chloride [Moles/Vol] 103 mmol/L 98-107 [facility] Work Phone: Eosinophils/100 WBC (Bld) 0.5 % 0-5 [facility] Work Phone: Glucose [Mass/Vol] 46 mg/dL 74-106 [facility] Work Phone: Comment on above: Glucose result less than 50 mg/dL suggests HYPOGLYCEMIA. Neutrophils (Bld) [#/Vol] 5.0 10*3/uL 2.0-7.7 [facility] Work Phone: [phone] Neutrophils/100 WBC (Bld) 76.1 % 47-70 [facility] Work Phone: Potassium [Moles/Vol] 4.2 mmol/L 3.5-5.1 [facility] Work Phone: Protein [Mass/Vol] 8.2 g/dL 6.4-8.2 [facility] Work Phone: Sodium [Moles/Vol] 136 mmol/L 136-[address] [facility] Work Phone: WBC (Bld) [#/Vol] 6.6 10*3/uL 4.4-11.0 [facility] Work Phone: [phone] Bilirubin Test strip Ql (U)o n 04-14-2022 Bilirubin Ql (U) Negative Negative [facility] Work Phone: [phone] Blood erythrocytes count (nu mber/volume)on 04-14-2022 RBC (Bld) [#/Vol] 5.00 10*6/uL 4.6-6.2 [facility]: [phone] Blood hemoglobin measurement (mass/volume)on 04-14-2022 Hemoglobin (Bld) [Mass/Vol] 13.9 g/dL 13.0-16.5 [facility] Work Phone: Blood lymphocytes/100 leukoc yteson 04-14-2022 Lymphocytes/100 WBC (Bld) 9.7 % 19-41 [facility] Work Phone: Blood monocytes/100 leukocyt eson 04-14-2022 Monocytes/100 WBC (Bld) 12.3 % 0-10 [facility] Work Phone: Blood platelet mean volumeon 04-14-2022 Platelet mean volume (Bld) [Entitic vol] 10.5 fL 6.2-12.0 [facility] Work Phone: [phone] Determination of erythrocyte mean corpuscular volume (MCV)on 04-14-2022 MCV (RBC) [Entitic vol] 86.4 fL 80-94 [facility] Work Phone: [phone] Glucose Glucometer (BldC) [M ass/Vol]on 04-14-2022 Glucose [Mass/Vol] 113 mg/dL 74-106 [facility] Work Phone: Comment on above: MANAGEMENT OF PATIEN T CARE PER NURSING PROTOCOL Hematocrit Auto (Bld) [Volum e fraction]on 04-14-2022 Hematocrit (Bld) [Volume fraction] 43.2 % 40-54 [facility] Work Phone: INR in Blood by Coagulation assayon 04-14-2022 INR Coag (Bld) [Relative time] 1.1 {INR} [facility] Work Phone: Ketones Test strip Ql (U)on 04-14-2022 Ketones Ql (U) 5 mg/dl Negative [facility] Work Phone: Laboratory - Chemistry and C hemistry - challengeon 04-14-2022 ALP [Catalytic activity/Vol] 63 U/L 45-117 [facility] Work Phone: ALT [Catalytic activity/Vol] 29 U/L 16-61 [facility] Work Phone: CO2 [Moles/Vol] 25.0 mmol/L 21.0-32.0 [facility] Work Phone: Globulin (S) [Mass/Vol] 5.1 g/dL 2.2-4.2 [facility] Work Phone: Urea nitrogen/Creatinine [Mass ratio] 37.6 mg/mg 10-20 [facility] Work Phone: Laboratory - Coagulationon 0 04-14-2022 PT Coag (PPP) [Time] 14.0 s 11.7-14.9 [facility] Work Phone: Laboratory - Hematology and Cell countson 04-14-2022 Erythrocyte distribution width (RBC) [Entitic vol] 49.0 fL 35.1-43.9 [facility] Work Phone: Erythrocyte distribution width (RBC) [Ratio] 15.4 % 11.6-14.6 [facility] Work Phone: Immature granulocytes/100 WBC (Bld) 1.100 % 0.0-0.9 [facility] Work Phone: Comment on above: IG% - Immature Granu locytes (promyelocytes, myelocytes and metamyelocytes) > 1% indicates that a LEFT SHIFT is Present. MCH (RBC) [Entitic mass] 27.8 pg 27.0-32.0 [facility] Work Phone: Nucleated RBC/100 WBC (Bld) [Ratio] 0 % 0-5 [facility] Work Phone: MCHC Auto (RBC) [Mass/Vol]on 04-14-2022 MCHC (RBC) [Mass/Vol] 32.2 g/dL 32-36 [facility] Work Phone: Mucus LM Ql (Urine sed)on Mucus Ql (Urine sed) 0 SEEN /hpf [facility] Work Phone: Nitrite Test strip Ql (U)on 04-14-2022 Nitrite Ql (U) Negative Negative [facility] Work Phone: No Panel Informationon 04-14 Estimated Creatinine Clearance Calc 35.56 ml/min [facility] Work Phone: Estimated GFR (MDRD) Amer 55 mL/min >60 [facility] Work Phone: Comment on above: GFR Calc Estimated GFR (MDRD) Non-Af Amer 46 mL/min >60 [facility] Work Phone: Comment on above: Non- GFR Calc Platelets bldon 04-14-2022 Platelets (Bld) [#/Vol] 293 10*3/uL 150-450 [facility] Work Phone: Platelets (Bld) [#/Vol] 287 10*3/uL 150-450 [facility] Work Phone: Protein Test strip Ql (U)on 04-14-2022 Protein Ql (U) 30 mg/dl Negative [facility] Work Phone: Serum or plasma albumin [place] urement (mass/volume)on 04-14-2022 Albumin [Mass/Vol] 3.1 g/dL 3.2-5.0 [facility] Work Phone: Serum or plasma albumin/glob ulin mass ratioon 04-14-2022 Albumin/Globulin [Mass ratio] 0.6 {ratio} 0.9-2.4 [facility] Work Phone: Serum or plasma calcium [place] urement (mass/volume)on 04-14-2022 Calcium [Mass/Vol] 9.9 mg/dL 8.5-10.1 [facility] Work Phone: Serum or plasma creatinine m easurement (mass/volume)on 04-14-2022 Creatinine [Mass/Vol] 1.57 mg/dL 0.70-1.30 [facility] Work Phone: Comment on above: The validity of the calculated GFR & GFRAA in patients over 70 years has not been determined. Clinical correlation is essential. Serum or plasma urea nitroge n measurement (mass/volume)on 04-14-2022 Urea nitrogen [Mass/Vol] 59 mg/dL 7-18 [facility] Work Phone: Squamous epithelial cells de tection in urine sediment by light microscopyon 04-14-2022 Epithelial cells.squamous LM Ql (Urine sed) 0-5 SEEN /hpf 0-5 [facility] Work Phone: Thin prep Papanicolaou smear with manual screeningon 04-14-2022 Thin prep Papanicolaou smear with manual screening 30 U/L 15-37 [facility] Work Phone: Thin prep Papanicolaou smear with manual screening 8 5-15 [facility] Work Phone: Urine blood detectionon 03-21 RBC Ql (U) Negative Negative [facility] Work Phone: RBC Ql (U) 0 SEEN /hpf 0-5 [facility] Work Phone: Urine clarityon 04-14-2022 Clarity (U) Clear Clear [facility] Work Phone: Urine color determinationon 04-14-2022 Color (U) Yellow Yellow [facility] Work Phone: Urine glucose detectionon Glucose Ql (U) Normal mg/dl Normal [facility] Work Phone: Urine leukocyte esterase det ection by dipstickon 04-14-2022 Leukocyte esterase Test strip Ql (U) 25 /ul Negative [facility] Work Phone: Urine pHon 04-14-2022 pH (U) 6.0 [pH] 5.0 - 8.0 [facility] Work Phone: Urine sediment bacteria coun t by microscopy (number/high power field)on 04-14-2022 Bacteria LM.HPF (Urine sed) [#/Area] 0 /[HPF] None Seen [facility] Work Phone: Urine specific gravity measu rementon 04-14-2022 Specific gravity (U) [Rel density] 1.010 1.002-1.03 0 [facility] Work Phone: Urobilinogen Auto test strip Ql (U)on 04-14-2022 Urobilinogen Ql (U) Normal mg/dl Normal [facility] Work Phone: Basophil percentageon 2021 Creatinine [Mass/Vol] 1.4 mg/dL 0.70-1.30 [facility] Work Phone: Laboratory - Chemistry and C hemistry - challengeon 04-12-2022 GFR/1.73 sq M.predicted among non-blacks MDRD (S/P/Bld) [Vol rate/Area] 50.0000 mL/min/{1.73_m2} >60 [facility] Work Phone: CNPNon 04-06-2022 [facility] Telephone (UCWSTR) -- PEDRO HILLMAN ([id number]) 1945 M Date Time Provider Department 04/06/22 DEREK WHELANWSTR During your visit today, we recorded the [...] Signed Still unable to reach patient and 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 Mailbox full/Mailbox not set up/ Number incorrect. Please try again later. Ashley Ramirez Allie 04/08/2022 9:23 AM Signed left message on machine to give call back, different number from pharmacy. [phone]. Ashley Ramirez Allie 04/08/2022 2:56 PM Signed [...] Units by mouth once daily. - fish oil/borage/flax/om3,6,9 1 (OMEGA 3-6-9 COMPLEX ORAL) Take by mouth. - lutein 10 mg tab Take by mouth. - MULTIVITAMIN ORAL Take by mouth. - cephALEXin (KEFLEX) 500 mg capsule Take 1 capsule by mouth three times daily for 10 days. Problem List As Of Date 04/06/2022 Noted Resolved Osteoarthrosis, unspecified whether generalized*04/14/2014 Encounter Status:Closed by ASHLEY MOCK on 04/08/22 Normal [facility] Bacteria Ur Culton 2 Bacteria identified Cx Nom (U) [id number] Abnormal [facility] Comment on above: Order Comment: Speci men Type: URINE SPECIMEN Ordering Facility: [facility] Address: [address] [place] [address] Result Comment: >=10 0,000 CFU/ml Streptococcus mitis-oralis group No further workup Performed By: #### 6 30-4 #### [facility] CLIA [id number] [address] [place] [address] [place] CNOVon 04-05-2022 CNOV Office Visit (UCWSTR ) -- PEDRO HILLMAN ([id number]) 1945 M Date Time Provider Department 04/05/22 1:15 PM [facility] During your visit today, we recorded the following information about you: Temperature Pulse Respiration Blood pressure 101.6 degrees 76/minute 16/minute 122/76 Weight 87.1 kg Jessie OjedaBRITTNI Paz.WORK[employer] COMPENSATION DEFENSE ATTORNEY 04/05/2022 3:51 PM Signed Subjective HPI Pedro [...] up a (more content not included)... [facility] -- PEDRO HILLMAN ([id number]) 1945 M Date Time Provider Department 04/05/22 JESSIE RODRIGUEZ [facility] During your visit today, we recorded the following information about you: Jessie Rodriguez APRN.CNP 04/05/2022 2:59 PM Signed Radiology report faxed to patient's PCP Dr. Tonio Fajardo at [phone]. Confirmation of fax received. Patient was advised [...] Units by mouth once daily. - fish oil/borage/flax/om3,6,9 1 (OMEGA 3-6-9 COMPLEX ORAL) Take by mouth. - lutein 10 mg tab Take by mouth. - MULTIVITAMIN ORAL Take by mouth. - cephALEXin (KEFLEX) 500 mg capsule Take 1 capsule by mouth three times daily for 10 days. Problem List As Of Date 04/05/2022 Noted Resolved Osteoarthrosis, unspecified whether generalized*04/14/2014 Encounter Status:Closed by JESSIE RODRIGUEZ on 04/05/22 Normal [facility] No Panel InformationOrdered By: Ccf Provider on 04-05-2022 Radiology Result ACTIONABLE Abnormal [facility] Comment on above: This report contains an [...] (POC)on 2021 BILIRUBIN UA (POCT) Negative Negative [facility] CLARITY UA (POCT) Cloudy [facility] COLOR UA (POCT) Dark yellow [facility] GLUCOSE UA (POCT) Negative Negative mg/dL [facility] HEMOGLOBIN/BLOOD UA (POCT) Small Abnormal Negative [facility] KETONE UA (POCT) Negative Negative mg/dL [facility] LEUKOCYTES UA (POCT) Large Abnormal Negative [facility] NITRITE UA (POCT) Negative Negative [facility] PH UA (POCT) 6.0 4.5 - 8.0 [facility] Protein Ql (U) 100 mg/dL Abnormal Negative mg/dL [facility] SPECIFIC GRAVITY UA (POCT) 1.020 1.005 - 1.030 [facility] UROBILINOGEN UA (POCT) 0.2 E.U./dL Umm l E.U./dL [facility] XR CHEST 2V FRONTAL/LATon XR CHEST [...] be communicated with the ordering provider via [email or web address] staff message or phone message by [employer] within 2 business days of report finalization. Algorithms for management of incidental imaging findings can be found on the [facility] Intranet Sharepoint site at: [email or web address] [email or web address]/Forms/A [email or web address] Infrastructure Analyst: PSCB Transcribe Date/Time: Apr 05 2022 2:11P Dictated by : SANDEEP ORTIZ MD This examination was interpreted and the report reviewed and electronically signed by: SANDEEP ORTIZ MD on Apr 05 2022 2:13PM EST [id number] ACTIONABLE Invalid Interpretation Code [facility] XR Chest PA and LateralOrder ed By: [facility] Provider on 04-05-2022 Interpretation and review of laboratory results Abnormal [facility] XR Chest PA and Lateralon IMPRESSION: 4.5 [...] be communicated with the ordering provider via [email or web address] staff message or phone message by [employer] within 2 business days of report finalization. Algorithms for management of incidental imaging findings can be found on the [facility] Intranet Sharepoint site at: [email or web address] [email or web address] [email or web address] Infrastructure Analyst: JONATHAN Transcribe Date/Time: Apr 05 2022 2:11P Dictated by : SANDEEP ORTZI MD This examination was interpreted and the report reviewed and electronically signed by: SANDEEP ORTIZ MD on Apr 05 2022 2:13PM [facility] DIVISION OF RADIOLOGY * * *Final Report* [...] the thoracic spine. DIVISION OF RADIOLOGY Provider, [facility] - 04/05/2022 * * *Final Report* * [...] be communicated with the ordering provider via [email or web address] staff message or phone message by [employer] within 2 business days of report finalization. Algorithms for management of incidental imaging findings can be found on the [facility] Intranet Sharepoint site at: [email or web address] [email or web address] Infrastructure Analyst: JONATHAN Transcribe Date/Time: Apr 05 2022 2:11P Dictated by : SANDEEP ORTIZ MD This examination was interpreted and the report reviewed and electronically signed by: SANDEEP ORTIZ MD on Apr 05 2022 2:13PM [facility] Radiology Study observation (narrative) [facility] Anaerobic culture Bacteria identified Anaer cx Nom (Unsp spec) No anaerobic bacteria isolated. [facility] Work Phone: Bacteria identified Anaer cx Nom (Unsp spec) Anaerobic Culture Anaerobic cocci [facility] Work Phone: Bacteria identified Cx Nom ( Wound) Wound Culture Staphylococcus pseudintermediu [facility] Work Phone: Wound Culture Staphylococcus saprophyticus [facility] Work Phone: Gram stain for investigation of transfusion reaction Microscopic observation Gram stain Nom (Unsp spec) [facility] Work Phone: Vital Signs Date Time Vital Sign Value Performing Clinician Facility 04-10-2025 16:21-0400 Body temperature 98.6 [degF] Dr. Tonio Fajardo DO Work Phone: [facility] 04-10-2025 16:21-0400 Diastolic blood pressure 82 mm[Hg] Dr. Tonio Fajardo DO Work Phone: [facility] 04-10-2025 16:21-0400 Heart rate 106 /min Dr. Tonio Fajardo DO Work Phone: [facility] 04-10-2025 16:21-0400 Inhaled oxygen flow rate 3 L/min Dr. Tonio Fajardo DO Work Phone: [facility] 04-10-2025 16:21-0400 Respiratory rate 18 /min Dr. Tonio Fajardo DO Work Phone: [facility] 04-10-2025 16:21-0400 SaO2% (BldA) [Mass fraction] 100 % Dr. Tonio Fajardo DO Work Phone: [facility] 04-10-2025 16:21-0400 Systolic blood pressure 142 mm[Hg] Dr. Tonio Fajardo DO Work Phone: [facility] 04-10-2025 14:30-0400 Body height 167.[address] Tonio Fajardo DO Work Phone: [facility] 04-10-2025 14:30-0400 Body weight 75.[address] Tonio Fajardo DO Work Phone: [facility] 04-10-2025 05:10-0400 Body mass index (BMI) [Ratio] 26.7 kg/m2 Dr. Tonio Fajardo DO Work Phone: [facility] 04-07-2025 00:00-0400 Inhaled oxygen concentration 35 % Dr. Tonio Fajardo DO Work Phone: [facility] 04-05-2025 20:00-0400 Diastolic blood pressure 65 mm[Hg] Dr. Tonio Fajardo DO Work Phone: [facility] 04-05-2025 20:00-0400 Heart rate 103 /min Dr. Tonio Fajardo DO Work Phone: [facility] 04-05-2025 20:00-0400 Inhaled oxygen flow rate 4 L/min Dr. Tonio Fajardo DO Work Phone: [facility] 04-05-2025 20:00-0400 Respiratory rate 25 /min Dr. Tonio Fajardo DO Work Phone: [facility] 04-05-2025 20:00-0400 SaO2% (BldA) [Mass fraction] 92 % Dr. Tonio Fajardo DO Work Phone: [facility] 04-05-2025 20:00-0400 Systolic blood pressure 119 mm[Hg] Dr. Tonio Fajardo DO Work Phone: [facility] 04-05-2025 19:12-0400 Body temperature 98 [degF] Dr. Tonio Fajardo DO Work Phone: [facility] 04-05-2025 16:41-0400 Body height 167.[address] Tonio Fajardo DO Work Phone: [facility] 04-05-2025 16:41-0400 Body mass index (BMI) [Ratio] 28 kg/m2 Dr. Tonio Fajardo DO Work Phone: [facility] 04-05-2025 16:41-0400 Body weight 78.[address] Tonio Fajardo DO Work Phone: [facility] 03-17-2025 13:07-0400 Body height 167.[address] Tonio Fajardo DO Work Phone: [facility] 03-17-2025 13:07-0400 Body mass index (BMI) [Ratio] 26.6 kg/m2 Dr. Tonio Fajardo DO Work Phone: [facility] 03-17-2025 13:07-0400 Body weight 74.[address] Tonio Fajardo DO Work Phone: [facility] 03-17-2025 13:07-0400 Diastolic blood pressure 60 mm[Hg] Dr. Tonio Fajardo DO Work Phone: [facility] 03-17-2025 13:07-0400 Heart rate 101 /min Dr. Tonio Fajardo DO Work Phone: [facility] 03-17-2025 13:07-0400 Inhaled oxygen flow rate 3 L/min Dr. Tonio Fajardo DO Work Phone: [facility] 03-17-2025 13:07-0400 Respiratory rate 20 /min Dr. Tonio Fajardo DO Work Phone: [facility] 03-17-2025 13:07-0400 SaO2% (BldA) [Mass fraction] 96 % Dr. Tonio Fajardo DO Work Phone: [facility] 03-17-2025 13:07-0400 Systolic blood pressure 124 mm[Hg] Dr. Tonio Fajardo DO Work Phone: [facility] 03-15-2025 18:32-0400 Body temperature 98.1 [degF] Dr. Tonio Fajardo DO Work Phone: [facility] 03-15-2025 18:32-0400 Diastolic blood pressure 71 mm[Hg] Dr. Tonio Fajardo DO Work Phone: [facility] 03-15-2025 18:32-0400 Heart rate 101 /min Dr. Tonio Fajardo DO Work Phone: [facility] 03-15-2025 18:32-0400 Respiratory rate 18 /min Dr. Tonio Fajardo DO Work Phone: [facility] 03-15-2025 18:32-0400 SaO2% (BldA) [Mass fraction] 93 % Dr. Tonio Fajardo DO Work Phone: [facility] 03-15-2025 18:32-0400 Systolic blood pressure 168 mm[Hg] Dr. Tonio Fajardo DO Work Phone: [facility] 03-15-2025 16:58-0400 Body height 167.[address] Tonio Fajardo DO Work Phone: [facility] 03-15-2025 16:58-0400 Body mass index (BMI) [Ratio] 27.8 kg/m2 Dr. Tonio Fajardo DO Work Phone: [facility] 03-15-2025 16:58-0400 Body weight 78.[address] Tonio Fajardo DO Work Phone: [facility] 03-15-2025 16:58-0400 Inhaled oxygen flow rate 3 L/min Dr. Tonio Fajardo DO Work Phone: [facility] 03-09-2025 16:22-0400 Body temperature 98.5 [degF] Dr. Tonio Fajardo DO Work Phone: [facility] 03-09-2025 16:22-0400 Heart rate 78 /min Dr. Tonio Fajardo DO Work Phone: [facility] 03-09-2025 16:22-0400 Inhaled oxygen flow rate 3 L/min Dr. Tonio Fajardo DO Work Phone: [facility] 03-09-2025 16:22-0400 Respiratory rate 20 /min Dr. Tonio Fajardo DO Work Phone: [facility] 03-09-2025 16:22-0400 SaO2% (BldA) [Mass fraction] 92 % Dr. Tonio Fajardo DO Work Phone: [facility] 03-09-2025 11:48-0400 Inhaled oxygen flow rate 2 L/min Dr. Tonio Fajardo DO Work Phone: [facility] 03-09-2025 11:48-0400 SaO2% (BldA) [Mass fraction] 79 % Dr. Tonio Fajardo DO Work Phone: [facility] 03-09-2025 11:11-0400 Body height 167.[address] Tonio Fajardo DO Work Phone: [facility] 03-09-2025 11:11-0400 Body weight 78.[address] Tonio Fajardo DO Work Phone: [facility] 03-09-2025 10:00-0400 Diastolic blood pressure 51 mm[Hg] Dr. Tonio Fajardo DO Work Phone: [facility] 03-09-2025 10:00-0400 Heart rate 97 /min Dr. Tonio Fajardo DO Work Phone: [facility] 03-09-2025 10:00-0400 Systolic blood pressure 129 mm[Hg] Dr. Tonio Fajardo DO Work Phone: [facility] 03-09-2025 05:00-0400 Body mass index (BMI) [Ratio] 28 kg/m2 Dr. Toino Fajardo DO Work Phone: [facility] 03-04-2025 20:49-0400 Body temperature 98.6 [degF] Dr. Tonio Fajardo DO Work Phone: [facility] 03-04-2025 20:49-0400 Diastolic blood pressure 70 mm[Hg] Dr. Tonio Fajardo DO Work Phone: [facility] 03-04-2025 20:49-0400 Heart rate 114 /min Dr. Tonio Fajardo DO Work Phone: [facility] 03-04-2025 20:49-0400 Respiratory rate 20 /min Dr. Tonio Fajardo DO Work Phone: [facility] 03-04-2025 20:49-0400 SaO2% (BldA) [Mass fraction] 100 % Dr. Tonio Fajardo DO Work Phone: [facility] 03-04-2025 20:49-0400 Systolic blood pressure 153 mm[Hg] Dr. Tonio Fajardo DO Work Phone: [facility] 03-04-2025 20:00-0400 Inhaled oxygen flow rate 4 L/min Dr. Tonio Fajardo DO Work Phone: [facility] 03-04-2025 15:01-0400 Body height 167.[address] Tonio Fajardo DO Work Phone: [facility] 03-04-2025 15:01-0400 Body mass index (BMI) [Ratio] 25.9 kg/m2 Dr. Tonio Fajardo DO Work Phone: [facility] 03-04-2025 15:01-0400 Body weight 73.[address] Tonio Fajardo DO Work Phone: [facility] 11-06-2024 14:45-0400 Body height 167.[address] Tonio Fajardo DO Work Phone: [facility] 11-06-2024 14:45-0400 Body mass index (BMI) [Ratio] 28.5 kg/m2 Dr. Tonio Fajardo DO Work Phone: [facility] 11-06-2024 14:45-0400 Body temperature 98.5 [degF] Dr. Tonio Fajardo DO Work Phone: [facility] 11-06-2024 14:45-0400 Body weight 80.[address] Tonio Fajardo DO Work Phone: [facility] 11-06-2024 14:45-0400 Diastolic blood pressure 55 mm[Hg] Dr. Tonio Fajardo DO Work Phone: [facility] 11-06-2024 14:45-0400 Heart rate 55 /min Dr. Tonio Fajardo DO Work Phone: [facility] 11-06-2024 14:45-0400 Respiratory rate 18 /min Dr. Tonio Fajardo DO Work Phone: [facility] 11-06-2024 14:45-0400 SaO2% (BldA) [Mass fraction] 95 % Dr. Tonio Fajardo DO Work Phone: [facility] 11-06-2024 14:45-0400 Systolic blood pressure 116 mm[Hg] Dr. Tonio Fajardo DO Work Phone: [facility] 10-23-2024 09:06-0500 Body mass index (BMI) [Ratio] 28.5 kg/m2 Dr. Tonio Fajardo DO Work Phone: [facility] 10-23-2024 09:06-0500 Body temperature 97.4 [degF] Dr. Tonio Fajardo DO Work Phone: [facility] 10-23-2024 09:06-0500 Body weight 80.[address] Tonio Fajardo DO Work Phone: [facility] 10-23-2024 09:06-0500 Diastolic blood pressure 56 mm[Hg] Dr. Tonio Fajardo DO Work Phone: [facility] 10-23-2024 09:06-0500 Heart rate 52 /min Dr. Tonio Fajardo DO Work Phone: [facility] 10-23-2024 09:06-0500 Inhaled oxygen flow rate 3 L/min Dr. Tonio Fajardo DO Work Phone: [facility] 10-23-2024 09:06-0500 Respiratory rate 26 /min Dr. Tonio Fajardo DO Work Phone: [facility] 10-23-2024 09:06-0500 SaO2% (BldA) [Mass fraction] 97 % Dr. Tonio Fajardo DO Work Phone: [facility] 10-23-2024 09:06-0500 Systolic blood pressure 128 mm[Hg] Dr. Tonio Fajardo DO Work Phone: [facility] 10-16-2024 13:24-0500 Body height 167.[address] Tonio Fajardo DO Work Phone: [facility] 10-16-2024 13:24-0500 Body weight 78.[address] Tonio Fajardo DO Work Phone: [facility] 10-16-2024 13:24-0500 Heart rate 98 /min Dr. Tonio Fajardo DO Work Phone: [facility] 10-16-2024 13:24-0500 Inhaled oxygen flow rate 2 L/min Dr. Tonio Fajardo DO Work Phone: [facility] 10-16-2024 13:24-0500 SaO2% (BldA) [Mass fraction] 96 % Dr. Tonio Fajardo DO Work Phone: [facility] 09-25-2024 12:59-0500 Body mass index (BMI) [Ratio] 27.7 kg/m2 Dr. Tonio Fajardo DO Work Phone: [facility] 09-25-2024 12:59-0500 Body weight 80.[address] Tonio Fajardo DO Work Phone: [facility] 09-25-2024 12:59-0500 Diastolic blood pressure 75 mm[Hg] Dr. Tonio Fajardo DO Work Phone: [facility] 09-25-2024 12:59-0500 Heart rate 99 /min Dr. Tonio Fajardo DO Work Phone: [facility] 09-25-2024 12:59-0500 Respiratory rate 18 /min Dr. Tonio Fajardo DO Work Phone: [facility] 09-25-2024 12:59-0500 SaO2% (BldA) [Mass fraction] 90 % Dr. Tonio Fajardo DO Work Phone: [facility] 09-25-2024 12:59-0500 Systolic blood pressure 120 mm[Hg] Dr. Tonio Fajardo DO Work Phone: [facility] 11-12-2023 13:22-0400 Body height 170.[address] Tonio Fajardo Work Phone: [facility] 11-12-2023 13:22-0400 Body mass index (BMI) [Ratio] 28 kg/m2 Dr. Tonio Fajardo Work Phone: [facility] 11-12-2023 13:22-0400 Body temperature 97.9 [degF] Dr. Tonio Fajardo Work Phone: [facility] 11-12-2023 13:22-0400 Body weight 81.[address] Tonio Fajardo Work Phone: [facility] 11-12-2023 13:22-0400 Diastolic blood pressure 62 mm[Hg] Dr. Tonio Fajardo Work Phone: [facility] 11-12-2023 13:22-0400 Heart rate 103 /min Dr. Tonio Fajardo Work Phone: [facility] 11-12-2023 13:22-0400 Respiratory rate 18 /min Dr. Tonio Fajardo Work Phone: [facility] 11-12-2023 13:22-0400 SaO2% (BldA) [Mass fraction] 98 % Dr. Tonio Fajardo Work Phone: [facility] 11-12-2023 13:22-0400 Systolic blood pressure 97 mm[Hg] Dr. Tonio Fajardo Work Phone: [facility] 10-31-2023 12:05-0400 Body mass index (BMI) [Ratio] 27.3 kg/m2 Dr. Tonio Fajardo Work Phone: [facility] 10-31-2023 12:05-0400 Body temperature 98.2 [degF] Dr. Tonio Fajardo Work Phone: [facility] 10-31-2023 12:05-0400 Body weight 79.[address] Tonio Fajardo Work Phone: [facility] 10-31-2023 12:05-0400 Diastolic blood pressure 71 mm[Hg] Dr. Tonio Fajardo Work Phone: [facility] 10-31-2023 12:05-0400 Heart rate 78 /min Dr. Tonio Fajardo Work Phone: [facility] 10-31-2023 12:05-0400 Respiratory rate 18 /min Dr. Tonio Fajardo Work Phone: [facility] 10-31-2023 12:05-0400 SaO2% (BldA) [Mass fraction] 94 % Dr. Tonio Fajardo Work Phone: [facility] 10-31-2023 12:05-0400 Systolic blood pressure 119 mm[Hg] Dr. Tonio Fajardo Work Phone: [facility] 10-18-2023 14:51-0500 Body mass index (BMI) [Ratio] 28 kg/m2 Dr. Tonio Fajardo Work Phone: [facility] 10-18-2023 14:51-0500 Body temperature 98.9 [degF] Dr. Tonoi Fajardo Work Phone: [facility] 10-18-2023 14:51-0500 Body weight 81.[address] Tonio Fajardo Work Phone: [facility] 10-18-2023 14:51-0500 Diastolic blood pressure 60 mm[Hg] Dr. Tonio Fajardo Work Phone: [facility] 10-18-2023 14:51-0500 Heart rate 98 /min Dr. Tonio Fajardo Work Phone: [facility] 10-18-2023 14:51-0500 Respiratory rate 18 /min Dr. Tonio Fajardo Work Phone: [facility] 10-18-2023 14:51-0500 SaO2% (BldA) [Mass fraction] 96 % Dr. Tonio Fajardo Work Phone: [facility] 10-18-2023 14:51-0500 Systolic blood pressure 114 mm[Hg] Dr. Tonio Fajardo Work Phone: [facility] 08-29-2023 12:52-0500 Body height 170.[address] Tonio Fajardo Work Phone: [facility] 08-29-2023 12:52-0500 Body mass index (BMI) [Ratio] 27.8 kg/m2 Dr. Tonio Fajardo Work Phone: [facility] 08-29-2023 12:52-0500 Body weight 80.[address] Tonio Fajardo Work Phone: [facility] 08-29-2023 12:52-0500 Diastolic blood pressure 71 mm[Hg] Dr. Tonio Fajardo Work Phone: [facility] 08-29-2023 12:52-0500 Heart rate 95 /min Dr. Tonio Fajardo Work Phone: [facility] 08-29-2023 12:52-0500 Respiratory rate 18 /min Dr. Tonio Fajardo Work Phone: [facility] 08-29-2023 12:52-0500 SaO2% (BldA) [Mass fraction] 97 % Dr. Tonio Fajardo Work Phone: [facility] 08-29-2023 12:52-0500 Systolic blood pressure 111 mm[Hg] Dr. Tonio Fajardo Work Phone: [facility] 07-25-2023 07:50-0500 Body height 170.[address] Tonio Fajardo Work Phone: [facility] 07-25-2023 07:50-0500 Body mass index (BMI) [Ratio] 29.4 kg/m2 Dr. Tonio Fajardo Work Phone: [facility] 07-25-2023 07:50-0500 Body temperature 96.2 [degF] Dr. Tonio Fajardo Work Phone: [facility] 07-25-2023 07:50-0500 Body weight 85.[address] Tonio Fajardo Work Phone: [facility] 07-25-2023 07:50-0500 Diastolic blood pressure 75 mm[Hg] Dr. Tonio Fajardo Work Phone: [facility] 07-25-2023 07:50-0500 Heart rate 53 /min Dr. Tonio Fajardo Work Phone: [facility] 07-25-2023 07:50-0500 Respiratory rate 20 /min Dr. Tonio Fajardo Work Phone: [facility] 07-25-2023 07:50-0500 SaO2% (BldA) [Mass fraction] 82 % Dr. Tonio Fajardo Work Phone: [facility] 07-25-2023 07:50-0500 Systolic blood pressure 119 mm[Hg] Dr. Tonio Fajardo Work Phone: [facility] 06-08-2023 14:33-0400 Body temperature 97.1 [degF] Dr. Tonio Fajardo Work Phone: [facility] 06-08-2023 14:33-0400 Diastolic blood pressure 67 mm[Hg] Dr. Tonio Fajardo Work Phone: [facility] 06-08-2023 14:33-0400 Heart rate 103 /min Dr. Tonio Fajardo Work Phone: [facility] 06-08-2023 14:33-0400 Respiratory rate 14 /min Dr. Tonio Fajardo Work Phone: [facility] 06-08-2023 14:33-0400 SaO2% (BldA) [Mass fraction] 93 % Dr. Tonio Fajardo Work Phone: [facility] 06-08-2023 14:33-0400 Systolic blood pressure 133 mm[Hg] Dr. Tonio Fajardo Work Phone: [facility] 06-08-2023 12:20-0400 Body height 170.[address] Tonio Fajardo Work Phone: [facility] 06-08-2023 12:20-0400 Body mass index (BMI) [Ratio] 29.3 kg/m2 Dr. Tonio Fajardo Work Phone: [facility] 06-08-2023 12:20-0400 Body weight [address] Tonio Fajardo Work Phone: [facility] 05-02-2023 13:50-0400 Diastolic blood pressure 63 mm[Hg] Dr. Tonio Fajardo Work Phone: [facility] 05-02-2023 13:50-0400 Heart rate 97 /min Dr. Tonio Fajardo Work Phone: [facility] 05-02-2023 13:50-0400 Respiratory rate 18 /min Dr. Tonio Fajardo Work Phone: [facility] 05-02-2023 13:50-0400 Systolic blood pressure 113 mm[Hg] Dr. Tonio Fajardo Work Phone: [facility] 04-25-2023 14:04-0400 Body temperature 97.9 [degF] Dr. Tonio Fajardo Work Phone: [facility] 04-18-2023 13:24-0400 Body temperature 97.5 [degF] Dr. Tonio Fajardo Work Phone: [facility] 04-18-2023 13:24-0400 Diastolic blood pressure 77 mm[Hg] Dr. Tonio Fajardo Work Phone: [facility] 04-18-2023 13:24-0400 Heart rate 109 /min Dr. Tonio Fajardo Work Phone: [facility] 04-18-2023 13:24-0400 Respiratory rate 16 /min Dr. Tonio Fajardo Work Phone: [facility] 04-18-2023 13:24-0400 Systolic blood pressure 141 mm[Hg] Dr. Tonio Fajardo Work Phone: [facility] 04-17-2023 11:08-0400 Body height 167.[address] Tonio Fajardo Work Phone: [facility] 04-17-2023 11:08-0400 Body mass index (BMI) [Ratio] 30.2 kg/m2 Dr. Tonio Fajardo Work Phone: [facility] 04-17-2023 11:08-0400 Body temperature 98.6 [degF] Dr. Tonio Fajardo Work Phone: [facility] 04-17-2023 11:08-0400 Body weight 84.[address] Tonio Fajardo Work Phone: [facility] 04-17-2023 11:08-0400 Diastolic blood pressure 87 mm[Hg] Dr. Tonio Fajardo Work Phone: [facility] 04-17-2023 11:08-0400 Heart rate 87 /min Dr. Tonio Fajardo Work Phone: [facility] 04-17-2023 11:08-0400 Respiratory rate 18 /min Dr. Tonio Fajardo Work Phone: [facility] 04-17-2023 11:08-0400 SaO2% (BldA) [Mass fraction] 95 % Dr. Tonio Fajardo Work Phone: [facility] 04-17-2023 11:08-0400 Systolic blood pressure 130 mm[Hg] Dr. Tonio Fajardo Work Phone: [facility] 04-02-2023 11:24-0400 Body temperature 98.6 [degF] Dr. Tonio Fajardo Work Phone: [facility] 04-02-2023 11:24-0400 Diastolic blood pressure 55 mm[Hg] Dr. Tonio Fajardo Work Phone: [facility] 04-02-2023 11:24-0400 Heart rate 101 /min Dr. Tonio Fajardo Work Phone: [facility] 04-02-2023 11:24-0400 Respiratory rate 20 /min Dr. Tonio Fajardo Work Phone: [facility] 04-02-2023 11:24-0400 Systolic blood pressure 114 mm[Hg] Dr. Tonio Fajardo Work Phone: [facility] 03-19-2023 10:28-0400 Body temperature 98.2 [degF] Dr. Tonio Fajardo Work Phone: [facility] 03-19-2023 10:28-0400 Diastolic blood pressure 59 mm[Hg] Dr. Tonio Fajardo Work Phone: [facility] 03-19-2023 10:28-0400 Heart rate 106 /min Dr. Tonio Fajardo Work Phone: [facility] 03-19-2023 10:28-0400 Respiratory rate 20 /min Dr. Tonio Fajardo Work Phone: [facility] 03-19-2023 10:28-0400 Systolic blood pressure 120 mm[Hg] Dr. Tonio Fajardo Work Phone: [facility] 02-05-2023 13:10-0400 Body temperature 97.6 [degF] Dr. Tonio Fajardo Work Phone: [facility] 02-05-2023 13:10-0400 Diastolic blood pressure 76 mm[Hg] Dr. Tonio Fajardo Work Phone: [facility] 02-05-2023 13:10-0400 Heart rate 109 /min Dr. Tonio Fajardo Work Phone: [facility] 02-05-2023 13:10-0400 Respiratory rate 18 /min Dr. Tonio Fajardo Work Phone: [facility] 02-05-2023 13:10-0400 Systolic blood pressure 160 mm[Hg] Dr. Tonio Fajardo Work Phone: [facility] 01-08-2023 13:37-0400 Body temperature 96.7 [degF] Dr. Tonio Fajardo Work Phone: [facility] 01-08-2023 13:37-0400 Diastolic blood pressure 46 mm[Hg] Dr. Tonio Fajardo Work Phone: [facility] 01-08-2023 13:37-0400 Heart rate 111 /min Dr. Tonio Fajardo Work Phone: [facility] 01-08-2023 13:37-0400 Systolic blood pressure 121 mm[Hg] Dr. Tonio Fajardo Work Phone: [facility] 12-31-2022 00:58-0400 Body temperature 98.7 [degF] Dr. Tonio Fajardo Work Phone: [facility] 12-31-2022 00:58-0400 Diastolic blood pressure 59 mm[Hg] Dr. Tonio Fajardo Work Phone: [facility] 12-31-2022 00:58-0400 Heart rate 111 /min Dr. Tonio Fajardo Work Phone: [facility] 12-31-2022 00:58-0400 Respiratory rate 26 /min Dr. Tonio Fajardo Work Phone: [facility] 12-31-2022 00:58-0400 SaO2% (BldA) [Mass fraction] 93 % Dr. Tonio Fajardo Work Phone: [facility] 12-31-2022 00:58-0400 Systolic blood pressure 131 mm[Hg] Dr. Tonio Fajardo Work Phone: [facility] 12-30-2022 22:36-0400 Body height 167.[address] Tonio Fajardo Work Phone: [facility] 12-30-2022 22:36-0400 Body mass index (BMI) [Ratio] 30.5 kg/m2 Dr. Tonio Fajardo Work Phone: [facility] 12-30-2022 22:36-0400 Body weight 85.[address] Tonio Fajardo Work Phone: [facility] 12-25-2022 14:53-0400 Body temperature 97.7 [degF] Dr. Tonio Fajardo Work Phone: [facility] 12-25-2022 14:53-0400 Diastolic blood pressure 51 mm[Hg] Dr. Tonio Fajardo Work Phone: [facility] 12-25-2022 14:53-0400 Heart rate 110 /min Dr. Tonio Fajardo Work Phone: [facility] 12-25-2022 14:53-0400 Respiratory rate 18 /min Dr. Tonio Fajardo Work Phone: [facility] 12-25-2022 14:53-0400 Systolic blood pressure 101 mm[Hg] Dr. Tonio Fajardo Work Phone: [facility] 12-12-2022 10:49-0400 Body height 167.[address] Tonio Fajardo Work Phone: [facility] 12-12-2022 10:49-0400 Body mass index (BMI) [Ratio] 29.7 kg/m2 Dr. Tonio Fajardo Work Phone: [facility] 12-12-2022 10:49-0400 Body temperature 97.4 [degF] Dr. Tonio Fajardo Work Phone: [facility] 12-12-2022 10:49-0400 Body weight 83.[address] Tonio Fajardo Work Phone: [facility] 12-12-2022 10:49-0400 Diastolic blood pressure 71 mm[Hg] Dr. Tonio Fajardo Work Phone: [facility] 12-12-2022 10:49-0400 Heart rate 114 /min Dr. Tonio Fajardo Work Phone: [facility] 12-12-2022 10:49-0400 Respiratory rate 18 /min Dr. Tonio Fajardo Work Phone: [facility] 12-12-2022 10:49-0400 SaO2% (BldA) [Mass fraction] 96 % Dr. Tonio Fajardo Work Phone: [facility] 12-12-2022 10:49-0400 Systolic blood pressure 135 mm[Hg] Dr. Tonio Fajardo Work Phone: [facility] 12-11-2022 13:12-0400 Body temperature 96.2 [degF] Dr. Tonio Fajardo Work Phone: [facility] 12-11-2022 13:12-0400 Diastolic blood pressure 87 mm[Hg] Dr. Tonio Fajardo Work Phone: [facility] 12-11-2022 13:12-0400 Heart rate 107 /min Dr. Tonio Fajardo Work Phone: [facility] 12-11-2022 13:12-0400 Respiratory rate 20 /min Dr. Tonio Fajardo Work Phone: [facility] 12-11-2022 13:12-0400 Systolic blood pressure 110 mm[Hg] Dr. Tonio Fajardo Work Phone: [facility] 11-16-2022 13:13-0400 Diastolic blood pressure 49 mm[Hg] Dr. Tonio Fajardo Work Phone: [facility] 11-16-2022 13:13-0400 Heart rate 82 /min Dr. Tonio Fajardo Work Phone: [facility] 11-16-2022 13:13-0400 Respiratory rate 16 /min Dr. Tonio Fajardo Work Phone: [facility] 11-16-2022 13:13-0400 Systolic blood pressure 125 mm[Hg] Dr. Tonio Fajardo Work Phone: [facility] 11-08-2022 09:52-0400 Body temperature 97.3 [degF] Dr. Tonio Fajardo Work Phone: [facility] 10-16-2022 14:07-0500 Body height 167.[address] Tonio Fajardo Work Phone: [facility] 10-16-2022 14:05-0500 Body mass index (BMI) [Ratio] 29.8 kg/m2 Dr. Tonio Fajardo Work Phone: [facility] 10-16-2022 14:05-0500 Body temperature 97.6 [degF] Dr. Tonio Fajardo Work Phone: [facility] 10-16-2022 14:05-0500 Body weight 83.[address] Tonio Fajardo Work Phone: [facility] 10-16-2022 14:05-0500 Diastolic blood pressure 89 mm[Hg] Dr. Tonio Fajardo Work Phone: [facility] 10-16-2022 14:05-0500 Heart rate 78 /min Dr. Tonio Fajardo Work Phone: [facility] 10-16-2022 14:05-0500 Respiratory rate 18 /min Dr. Tonio Fajardo Work Phone: [facility] 10-16-2022 14:05-0500 SaO2% (BldA) [Mass fraction] 94 % Dr. Tonio Fajardo Work Phone: [facility] 10-16-2022 14:05-0500 Systolic blood pressure 145 mm[Hg] Dr. Tonio Fajardo Work Phone: [facility] 10-16-2022 13:24-0500 Body mass index (BMI) [Ratio] 29.8 kg/m2 Dr. Tonio Fajardo Work Phone: [facility] 10-16-2022 13:24-0500 Body temperature 98.6 [degF] Dr. Tonio Fajardo Work Phone: [facility] 10-16-2022 13:24-0500 Body weight 83.[address] Tonio Fajardo Work Phone: [facility] 10-16-2022 13:24-0500 Diastolic blood pressure 74 mm[Hg] Dr. Tonio Fajardo Work Phone: [facility] 10-16-2022 13:24-0500 Heart rate 75 /min Dr. Tonio Fajardo Work Phone: [facility] 10-16-2022 13:24-0500 Respiratory rate 18 /min Dr. Tonio Fajarod Work Phone: [facility] 10-16-2022 13:24-0500 SaO2% (BldA) [Mass fraction] 94 % Dr. Tonio Fajardo Work Phone: [facility] 10-16-2022 13:24-0500 Systolic blood pressure 146 mm[Hg] Dr. Tonio Fajardo Work Phone: [facility] 10-09-2022 12:59-0500 Body temperature 97.5 [degF] Dr. Tonio Fajardo Work Phone: [facility] 10-09-2022 12:59-0500 Diastolic blood pressure 63 mm[Hg] Dr. Tonio Fajardo Work Phone: [facility] 10-09-2022 12:59-0500 Heart rate 89 /min Dr. Tonio Fajardo Work Phone: [facility] 10-09-2022 12:59-0500 Respiratory rate 22 /min Dr. Tonio Fajardo Work Phone: [facility] 10-09-2022 12:59-0500 Systolic blood pressure 148 mm[Hg] Dr. Tonio Fajardo Work Phone: [facility] 09-18-2022 09:49-0500 Body temperature 97.3 [degF] Dr. Tonio Fajardo Work Phone: [facility] 09-18-2022 09:49-0500 Diastolic blood pressure 44 mm[Hg] Dr. Tonio Fajardo Work Phone: [facility] 09-18-2022 09:49-0500 Heart rate 66 /min Dr. Tonio Fajardo Work Phone: [facility] 09-18-2022 09:49-0500 Respiratory rate 18 /min Dr. Tonio Fajardo Work Phone: [facility] 09-18-2022 09:49-0500 Systolic blood pressure 138 mm[Hg] Dr. Tonio Fajardo Work Phone: [facility] 08-15-2022 13:56-0500 Body temperature 97.1 [degF] Dr. Tonio Fajardo Work Phone: [facility] 08-15-2022 13:56-0500 Diastolic blood pressure 43 mm[Hg] Dr. Tonio Fajardo Work Phone: [facility] 08-15-2022 13:56-0500 Heart rate 73 /min Dr. Tonio Fajardo Work Phone: [facility] 08-15-2022 13:56-0500 Respiratory rate 16 /min Dr. Tonio Fajardo Work Phone: [facility] 08-15-2022 13:56-0500 Systolic blood pressure 139 mm[Hg] Dr. Tonio Fajardo Work Phone: [facility] 08-08-2022 14:00-0500 Body height 167.[address] Tonio Fajardo Work Phone: [facility] 08-08-2022 13:57-0500 Body mass index (BMI) [Ratio] 29.5 kg/m2 Dr. Tonio Fajardo Work Phone: [facility] 08-08-2022 13:57-0500 Body temperature 97.5 [degF] Dr. Tonio Fajardo Work Phone: [facility] 08-08-2022 13:57-0500 Body weight 83.[address] Tonio Fajardo Work Phone: [facility] 08-08-2022 13:57-0500 Diastolic blood pressure 54 mm[Hg] Dr. Tonio Fajardo Work Phone: [facility] 08-08-2022 13:57-0500 Heart rate 67 /min Dr. Tonio Fajardo Work Phone: [facility] 08-08-2022 13:57-0500 Respiratory rate 16 /min Dr. Tonio Fajardo Work Phone: [facility] 08-08-2022 13:57-0500 SaO2% (BldA) [Mass fraction] 94 % Dr. Tonio Fajardo Work Phone: [facility] 08-08-2022 13:57-0500 Systolic blood pressure 109 mm[Hg] Dr. Tonio Fajardo Work Phone: [facility] 07-19-2022 14:30-0500 Body height 167.[address] Tonio Fajardo Work Phone: [facility] Work Phone: 07-19-2022 14:30-0500 Body mass index (BMI) [Ratio] 29 kg/m2 Dr. Tonio Fajardo Work Phone: [facility] 07-19-2022 14:30-0500 Body weight 81.[address] Tonio Fajardo Work Phone: [facility] 07-19-2022 14:30-0500 Diastolic blood pressure 62 mm[Hg] Dr. Tonio Fajardo Work Phone: [facility] 07-19-2022 14:30-0500 Heart rate 66 /min Dr. Tonio Fajardo Work Phone: [facility] 07-19-2022 14:30-0500 Respiratory rate 24 /min Dr. Tonio Fajardo Work Phone: [facility] 07-19-2022 14:30-0500 SaO2% (BldA) [Mass fraction] 97 % Dr. Tonio Fajardo Work Phone: [facility] 07-19-2022 14:30-0500 Systolic blood pressure 117 mm[Hg] Dr. Tonio Fajardo Work Phone: [facility] 07-18-2022 13:29-0500 Body temperature 97.1 [degF] Dr. Tonio Fajardo Work Phone: [facility] 07-18-2022 13:29-0500 Diastolic blood pressure 57 mm[Hg] Dr. Tonio Fajardo Work Phone: [facility] 07-18-2022 13:29-0500 Heart rate 83 /min Dr. Tonio Fajardo Work Phone: [facility] 07-18-2022 13:29-0500 Respiratory rate 16 /min Dr. Tonio Fajardo Work Phone: [facility] 07-18-2022 13:29-0500 Systolic blood pressure 117 mm[Hg] Dr. Tonio Fajardo Work Phone: [facility] 07-17-2022 11:23-0500 Body temperature 98.3 [degF] Dr. Tonio Fajardo Work Phone: [facility] 07-17-2022 11:23-0500 Diastolic blood pressure 58 mm[Hg] Dr. Tonio Fajardo Work Phone: [facility] 07-17-2022 11:23-0500 Heart rate 63 /min Dr. Tonio Fajardo Work Phone: [facility] 07-17-2022 11:23-0500 Respiratory rate 16 /min Dr. Tonio Fajardo Work Phone: [facility] 07-17-2022 11:23-0500 SaO2% (BldA) [Mass fraction] 97 % Dr. Tonio Fajardo Work Phone: [facility] 07-17-2022 11:23-0500 Systolic blood pressure 107 mm[Hg] Dr. Tonio Fajardo Work Phone: [facility] 07-05-2022 14:00-0500 Body mass index (BMI) [Ratio] 29 kg/m2 Dr. Tonio Fajardo Work Phone: [facility] 07-05-2022 14:00-0500 Body temperature 96.9 [degF] Dr. Tonio Fajardo Work Phone: [facility] 07-05-2022 14:00-0500 Body weight 81.[address] Tonio Fajardo Work Phone: [facility] 07-05-2022 14:00-0500 Diastolic blood pressure 63 mm[Hg] Dr. Tonio Fajardo Work Phone: [facility] 07-05-2022 14:00-0500 Heart rate 66 /min Dr. Tonio Fajardo Work Phone: [facility] 07-05-2022 14:00-0500 Respiratory rate 16 /min Dr. Tonio Fajardo Work Phone: [facility] 07-05-2022 14:00-0500 SaO2% (BldA) [Mass fraction] 97 % Dr. Tonio Fajardo Work Phone: [facility] 07-05-2022 14:00-0500 Systolic blood pressure 156 mm[Hg] Dr. Tonio Fajardo Work Phone: [facility] 06-28-2022 14:11-0500 Body mass index (BMI) [Ratio] 29.6 kg/m2 Dr. Tonio Fajardo Work Phone: [facility] 06-28-2022 14:11-0500 Body temperature 97.1 [degF] Dr. Tonio Fajardo Work Phone: [facility] 06-28-2022 14:11-0500 Body weight 83.[address] Tonio Fajardo Work Phone: [facility] 06-28-2022 14:11-0500 Diastolic blood pressure 58 mm[Hg] Dr. Tonio Fajardo Work Phone: [facility] 06-28-2022 14:11-0500 Heart rate 77 /min Dr. Tonio Fajardo Work Phone: [facility] 06-28-2022 14:11-0500 Respiratory rate 16 /min Dr. Tonio Fajardo Work Phone: [facility] 06-28-2022 14:11-0500 SaO2% (BldA) [Mass fraction] 89 % Dr. Tonio Fajardo Work Phone: [facility] 06-28-2022 14:11-0500 Systolic blood pressure 124 mm[Hg] Dr. Tonio Fajardo Work Phone: [facility] 06-21-2022 13:57-0400 Body mass index (BMI) [Ratio] 29.8 kg/m2 Dr. Tonio Fajardo Work Phone: [facility] 06-21-2022 13:57-0400 Body temperature 97 [degF] Dr. Tonio Fajardo Work Phone: [facility] 06-21-2022 13:57-0400 Body weight 83.[address] Tonio Fajardo Work Phone: [facility] 06-21-2022 13:57-0400 Diastolic blood pressure 88 mm[Hg] Dr. Tonio Fajardo Work Phone: [facility] 06-21-2022 13:57-0400 Heart rate 70 /min Dr. Tonio Fajardo Work Phone: [facility] 06-21-2022 13:57-0400 Respiratory rate 18 /min Dr. Tonio Fajardo Work Phone: [facility] 06-21-2022 13:57-0400 SaO2% (BldA) [Mass fraction] 94 % Dr. Tonio Fajardo Work Phone: [facility] 06-21-2022 13:57-0400 Systolic blood pressure 139 mm[Hg] Dr. Tonio Fajardo Work Phone: [facility] 06-14-2022 13:55-0400 Body height 167.[address] Tonoi Fajardo Work Phone: [facility] Work Phone: 06-14-2022 13:53-0400 Body mass index (BMI) [Ratio] 29.5 kg/m2 Dr. Toino Fajardo Work Phone: [facility] 06-14-2022 13:53-0400 Body temperature 97 [degF] Dr. Tonio Fajardo Work Phone: [facility] 06-14-2022 13:53-0400 Body weight 83.[address] Tonio Fajardo Work Phone: [facility] 06-14-2022 13:53-0400 Diastolic blood pressure 61 mm[Hg] Dr. Tonio Fajardo Work Phone: [facility] 06-14-2022 13:53-0400 Heart rate 66 /min Dr. Tonio Fajardo Work Phone: [facility] 06-14-2022 13:53-0400 Respiratory rate 16 /min Dr. Tonio Fajardo Work Phone: [facility] 06-14-2022 13:53-0400 SaO2% (BldA) [Mass fraction] 94 % Dr. Tonio Fajardo Work Phone: [facility] 06-14-2022 13:53-0400 Systolic blood pressure 137 mm[Hg] Dr. Tonio Fajardo Work Phone: [facility] 06-12-2022 10:32-0400 Body temperature 97.3 [degF] Dr. Tonio Fajardo Work Phone: [facility] 06-12-2022 10:32-0400 Diastolic blood pressure 63 mm[Hg] Dr. Tonio Fajardo Work Phone: [facility] 06-12-2022 10:32-0400 Heart rate 59 /min Dr. Tonio Fajardo Work Phone: [facility] 06-12-2022 10:32-0400 Respiratory rate 18 /min Dr. Tonio Fajardo Work Phone: [facility] 06-12-2022 10:32-0400 Systolic blood pressure 149 mm[Hg] Dr. Tonio Fajardo Work Phone: [facility] 05-30-2022 14:08-0400 Body height 167.[address] Tonio Fajardo Work Phone: [facility] Work Phone: 05-30-2022 14:05-0400 Body mass index (BMI) [Ratio] 29.7 kg/m2 Dr. Tonio Fajardo Work Phone: [facility] 05-30-2022 14:05-0400 Body temperature 97 [degF] Dr. Tonio Fajardo Work Phone: [facility] 05-30-2022 14:05-0400 Body weight 83.[address] Tonio Fajardo Work Phone: [facility] 05-30-2022 14:05-0400 Diastolic blood pressure 64 mm[Hg] Dr. Tonio Fajardo Work Phone: [facility] 05-30-2022 14:05-0400 Heart rate 65 /min Dr. Tonio Fajardo Work Phone: [facility] 05-30-2022 14:05-0400 Respiratory rate 18 /min Dr. Tonio Fajardo Work Phone: [facility] 05-30-2022 14:05-0400 SaO2% (BldA) [Mass fraction] 95 % Dr. Tonio Fajardo Work Phone: [facility] 05-30-2022 14:05-0400 Systolic blood pressure 145 mm[Hg] Dr. Tonio Fajardo Work Phone: [facility] 05-29-2022 14:48-0400 Body temperature 97.6 [degF] Dr. Tonio Fajardo Work Phone: [facility] Work Phone: 05-29-2022 14:48-0400 Diastolic blood pressure 51 mm[Hg] Dr. Tonio Fajardo Work Phone: [facility] Work Phone: 05-29-2022 14:48-0400 Heart rate 75 /min Dr. Tonio Fajardo Work Phone: [facility] Work Phone: 05-29-2022 14:48-0400 Systolic blood pressure 158 mm[Hg] Dr. Tonio Fajardo Work Phone: [facility] Work Phone: 05-24-2022 14:31-0400 Body height 167.[address] Tonio Fajardo Work Phone: [facility] Work Phone: 05-24-2022 14:22-0400 Body mass index (BMI) [Ratio] 29.7 kg/m2 Dr. Tonio Fajardo Work Phone: [facility] 05-24-2022 14:22-0400 Body temperature 98.2 [degF] Dr. Tonio Fajardo Work Phone: [facility] 05-24-2022 14:22-0400 Body weight 83.[address] Tonio Fajardo Work Phone: [facility] 05-24-2022 14:22-0400 Diastolic blood pressure 74 mm[Hg] Dr. Tonio Fajardo Work Phone: [facility] 05-24-2022 14:22-0400 Heart rate 74 /min Dr. Tonio Fajardo Work Phone: [facility] 05-24-2022 14:22-0400 Respiratory rate 15 /min Dr. Tonio Fajardo Work Phone: [facility] 05-24-2022 14:22-0400 SaO2% (BldA) [Mass fraction] 96 % Dr. Tonio Fajardo Work Phone: [facility] 05-24-2022 14:22-0400 Systolic blood pressure 135 mm[Hg] Dr. Tonio Fajardo Work Phone: [facility] 05-24-2022 13:26-0400 Body temperature 96.7 [degF] Dr. Tonio Fajardo Work Phone: [facility] Work Phone: 05-24-2022 13:26-0400 Diastolic blood pressure 57 mm[Hg] Dr. Tonio Fajardo Work Phone: [facility] Work Phone: 05-24-2022 13:26-0400 Heart rate 81 /min Dr. Tonio Fajardo Work Phone: [facility] Work Phone: 05-24-2022 13:26-0400 Respiratory rate 18 /min Dr. Tonio Fajardo Work Phone: [facility] Work Phone: 05-24-2022 13:26-0400 Systolic blood pressure 141 mm[Hg] Dr. Tonio Fajardo Work Phone: [facility] Work Phone: 05-17-2022 15:07-0400 Body temperature 97.5 [degF] Dr. Tonio Fajardo Work Phone: [facility] Work Phone: 05-17-2022 15:07-0400 Diastolic blood pressure 63 mm[Hg] Dr. Tonio Fajardo Work Phone: [facility] Work Phone: 05-17-2022 15:07-0400 Heart rate 71 /min Dr. Tonio Fajardo Work Phone: [facility] Work Phone: 05-17-2022 15:07-0400 Respiratory rate 20 /min Dr. Tonio Fajardo Work Phone: [facility] Work Phone: 05-17-2022 15:07-0400 Systolic blood pressure 142 mm[Hg] Dr. Tonio Fajardo Work Phone: [facility] Work Phone: 05-11-2022 16:01-0400 Body height 167.[address] Tonio Fajardo Work Phone: [facility] Work Phone: 05-11-2022 15:54-0400 Body mass index (BMI) [Ratio] 29.4 kg/m2 Dr. Tonio Fajardo Work Phone: [facility] Work Phone: 05-11-2022 15:54-0400 Body temperature 98.4 [degF] Dr. Tonio Fajardo Work Phone: [facility] Work Phone: 05-11-2022 15:54-0400 Body weight 82.[address] Tonio Fajardo Work Phone: [facility] Work Phone: 05-11-2022 15:54-0400 Diastolic blood pressure 67 mm[Hg] Dr. Tonio Fajardo Work Phone: [facility] Work Phone: 05-11-2022 15:54-0400 Heart rate 63 /min Dr. Tonio Fajardo Work Phone: [facility] Work Phone: 05-11-2022 15:54-0400 Respiratory rate 16 /min Dr. Tonio Fajardo Work Phone: [facility] Work Phone: 05-11-2022 15:54-0400 SaO2% (BldA) [Mass fraction] 96 % Dr. Tonio Fajardo Work Phone: [facility] Work Phone: 05-11-2022 15:54-0400 Systolic blood pressure 100 mm[Hg] Dr. Tonio Fajardo Work Phone: [facility] Work Phone: 05-11-2022 08:32-0400 Body mass index (BMI) [Ratio] 29.4 kg/m2 Dr. Tonio Fajardo Work Phone: [facility] Work Phone: 05-11-2022 08:32-0400 Body temperature 97.2 [degF] Dr. Tonio Fajardo Work Phone: [facility] Work Phone: 05-11-2022 08:32-0400 Body weight 82.[address] Tonio Fajardo Work Phone: [facility] Work Phone: 05-11-2022 08:32-0400 Diastolic blood pressure 62 mm[Hg] Dr. Tonio Fajardo Work Phone: [facility] Work Phone: 05-11-2022 08:32-0400 Heart rate 73 /min Dr. Tonio Fajardo Work Phone: [facility] Work Phone: 05-11-2022 08:32-0400 Respiratory rate 20 /min Dr. Tonio Fajardo Work Phone: [facility] Work Phone: 05-11-2022 08:32-0400 SaO2% (BldA) [Mass fraction] 96 % Dr. Tonio Fajardo Work Phone: [facility] Work Phone: 05-11-2022 08:32-0400 Systolic blood pressure 145 mm[Hg] Dr. Tonio Fajardo Work Phone: [facility] Work Phone: 04-28-2022 11:40-0400 Body temperature 97.4 [degF] Dr. Tonio Fajardo Work Phone: [facility] Work Phone: 04-28-2022 11:40-0400 Diastolic blood pressure 46 mm[Hg] Dr. Tonio Fajardo Work Phone: [facility] Work Phone: 04-28-2022 11:40-0400 Heart rate 66 /min Dr. Tonio Fajardo Work Phone: [facility] Work Phone: 04-28-2022 11:40-0400 Respiratory rate 20 /min Dr. Tonio Fajardo Work Phone: [facility] Work Phone: 04-28-2022 11:40-0400 SaO2% (BldA) [Mass fraction] 96 % Dr. Tonio Fajardo Work Phone: [facility] Work Phone: 04-28-2022 11:40-0400 Systolic blood pressure 138 mm[Hg] Dr. Tonio Fajardo Work Phone: [facility] Work Phone: 04-28-2022 09:44-0400 Inhaled oxygen flow rate 2 L/min Dr. Tonio Fajardo Work Phone: [facility] Work Phone: 04-28-2022 08:15-0400 Body height 167.[address] Tonio Fajardo Work Phone: [facility] Work Phone: 04-28-2022 08:15-0400 Body mass index (BMI) [Ratio] 28 kg/m2 Dr. Tonio Fajardo Work Phone: [facility] Work Phone: 04-28-2022 08:15-0400 Body weight 78.[address] Tonio Fajardo Work Phone: [facility] Work Phone: 04-26-2022 13:47-0400 Body temperature 97 [degF] Dr. Tonio Fajardo Work Phone: [facility] Work Phone: 04-26-2022 13:47-0400 Diastolic blood pressure 33 mm[Hg] Dr. Tonio Fajardo Work Phone: [facility] Work Phone: 04-26-2022 13:47-0400 Heart rate 80 /min Dr. Tonio Fajardo Work Phone: [facility] Work Phone: 04-26-2022 13:47-0400 Respiratory rate 18 /min Dr. Tonio Fajardo Work Phone: [facility] Work Phone: 04-26-2022 13:47-0400 Systolic blood pressure 118 mm[Hg] Dr. Tonio Fajardo Work Phone: [facility] Work Phone: 04-14-2022 11:11-0400 Body height 167.[address] Tonio Fajardo Work Phone: [facility] Work Phone: 04-14-2022 11:11-0400 Body mass index (BMI) [Ratio] 30.7 kg/m2 Dr. Tonio Fajardo Work Phone: [facility] Work Phone: 04-14-2022 11:11-0400 Body temperature 95.8 [degF] Dr. Tonio Fajardo Work Phone: [facility] Work Phone: 04-14-2022 11:11-0400 Body weight 86.[address] Tonio Fajardo Work Phone: [facility] Work Phone: 04-14-2022 11:11-0400 Diastolic blood pressure 68 mm[Hg] Dr. Tonio Fajardo Work Phone: [facility] Work Phone: 04-14-2022 11:11-0400 Heart rate 34 /min Dr. Tonio Fajardo Work Phone: [facility] Work Phone: 04-14-2022 11:11-0400 Respiratory rate 16 /min Dr. Tonio Fajardo Work Phone: [facility] Work Phone: 04-14-2022 11:11-0400 SaO2% (BldA) [Mass fraction] 91 % Dr. Tonio Fajardo Work Phone: [facility] Work Phone: 04-14-2022 11:11-0400 Systolic blood pressure 163 mm[Hg] Dr. Tonio Fajardo Work Phone: [facility] Work Phone: 04-14-2022 10:36-0400 Body temperature 96.7 [degF] Dr. Tonio Fajardo Work Phone: [facility] Work Phone: 04-14-2022 10:36-0400 Diastolic blood pressure 71 mm[Hg] Dr. Tonio Fajardo Work Phone: [facility] Work Phone: 04-14-2022 10:36-0400 Heart rate 64 /min Dr. Tonio Fajardo Work Phone: [facility] Work Phone: 04-14-2022 10:36-0400 Respiratory rate 23 /min Dr. Tonio Fajardo Work Phone: [facility] Work Phone: 04-14-2022 10:36-0400 SaO2% (BldA) [Mass fraction] 94 % Dr. Tonio Fajardo Work Phone: [facility] Work Phone: 04-14-2022 10:36-0400 Systolic blood pressure 153 mm[Hg] Dr. Tonio Fajardo Work Phone: [facility] Work Phone: 04-14-2022 08:24-0400 Body mass index (BMI) [Ratio] 30.2 kg/m2 Dr. Tonio Fajardo Work Phone: [facility] Work Phone: 04-14-2022 08:24-0400 Body weight 85.[address] Tonio Fajardo Work Phone: [facility] Work Phone: 04-12-2022 13:50-0400 Body temperature 97.8 [degF] Dr. Tonio Fajardo Work Phone: [facility] Work Phone: 04-12-2022 13:50-0400 Diastolic blood pressure 74 mm[Hg] Dr. Tonio Fajardo Work Phone: [facility] Work Phone: 04-12-2022 13:50-0400 Heart rate 69 /min Dr. Tonio Fajardo Work Phone: [facility] Work Phone: 04-12-2022 13:50-0400 Respiratory rate 18 /min Dr. Tonio Fajardo Work Phone: [facility] Work Phone: 04-12-2022 13:50-0400 Systolic blood pressure 107 mm[Hg] Dr. Tonio Fajardo Work Phone: [facility] Work Phone: 04-05-2022 13:34-0400 Body temperature 101.61 [degF] Jessie Praisler-Wood ANIMAL ASSISTED THERAPIST.WORKERS COMPENSATION DEFENSE ATTORNEY Work Phone: [facility] 04-05-2022 13:34-0400 Body weight 87.09 kg Jessie Praisler-Wood ANIMAL ASSISTED THERAPIST.WORKERS COMPENSATION DEFENSE ATTORNEY Work Phone: [facility] 04-05-2022 13:34-0400 Diastolic blood pressure 76 mm[Hg] Jessie Praisler-Wood ANIMAL ASSISTED THERAPIST.WORKERS COMPENSATION DEFENSE ATTORNEY Work Phone: [facility] 04-05-2022 13:34-0400 Heart rate 76 /min Jessie Praisler-Wood ANIMAL ASSISTED THERAPIST.WORKERS COMPENSATION DEFENSE ATTORNEY Work Phone: [facility] 04-05-2022 13:34-0400 Respiratory rate 16 /min Jessie Praisler-Wood ANIMAL ASSISTED THERAPIST.WORKERS COMPENSATION DEFENSE ATTORNEY Work Phone: [facility] 04-05-2022 13:34-0400 SaO2% (BldA) [Mass fraction] 94 % Jessie Rodriguez ANIMAL ASSISTED THERAPIST.WORKERS COMPENSATION DEFENSE ATTORNEY Work Phone: [facility] 04-05-2022 13:34-0400 Systolic blood pressure 122 mm[Hg] Jessie Rodriguez ANIMAL ASSISTED THERAPIST.WORKERS COMPENSATION DEFENSE ATTORNEY Work Phone: [facility] 03-01-2022 13:16-0400 Body temperature 97.6 [degF] Dr. Tonio Fajardo Work Phone: [facility] Work Phone: 03-01-2022 13:16-0400 Diastolic blood pressure 73 mm[Hg] Dr. Tonio Fajardo Work Phone: [facility] Work Phone: 03-01-2022 13:16-0400 Heart rate 70 /min Dr. Tonio Fajardo Work Phone: [facility] Work Phone: 03-01-2022 13:16-0400 Respiratory rate 18 /min Dr. Tonio Fajardo Work Phone: [facility] Work Phone: 03-01-2022 13:16-0400 Systolic blood pressure 141 mm[Hg] Dr. Tonio Fajardo Work Phone: [facility] Work Phone: 02-08-2022 13:06-0400 Body temperature 98.1 [degF] Dr. Tonio Fajardo Work Phone: [facility] Work Phone: 02-08-2022 13:06-0400 Diastolic blood pressure 63 mm[Hg] Dr. Tonio Fajardo Work Phone: [facility] Work Phone: 02-08-2022 13:06-0400 Heart rate 83 /min Dr. Tonio Fajardo Work Phone: [facility] Work Phone: 02-08-2022 13:06-0400 Respiratory rate 20 /min Dr. Tonio Fajardo Work Phone: [facility] Work Phone: 02-08-2022 13:06-0400 Systolic blood pressure 131 mm[Hg] Dr. Tonio Fajardo Work Phone: [facility] Work Phone: 01-17-2022 10:56-0400 Body height 167.[address] Tonio Fajardo Work Phone: [facility] Work Phone: 01-17-2022 10:56-0400 Body mass index (BMI) [Ratio] 31.9 kg/m2 Dr. Tonio Fajardo Work Phone: [facility] Work Phone: 01-17-2022 10:56-0400 Body weight 89.[address] Tonio Fajardo Work Phone: [facility] Work Phone: 01-17-2022 10:56-0400 Diastolic blood pressure 44 mm[Hg] Dr. Tonio Fajardo Work Phone: [facility] Work Phone: 01-17-2022 10:56-0400 Heart rate 64 /min Dr. Tonio Fajardo Work Phone: [facility] Work Phone: 01-17-2022 10:56-0400 Respiratory rate 22 /min Dr. Tonio Fajardo Work Phone: [facility] Work Phone: 01-17-2022 10:56-0400 SaO2% (BldA) [Mass fraction] 95 % Dr. Tonio Fajardo Work Phone: [facility] Work Phone: 01-17-2022 10:56-0400 Systolic blood pressure 101 mm[Hg] Dr. Tonio Fajardo Work Phone: [facility] Work Phone: 01-17-2022 10:56-0400 Body height 167.[address] Tonio Fajardo Work Phone: [facility] Work Phone: 01-17-2022 10:56-0400 Body mass index (BMI) [Ratio] 31.9 kg/m2 Dr. Tonio Fajardo Work Phone: [facility] Work Phone: 01-17-2022 10:56-0400 Body weight 89.[address] Tonio Fajardo Work Phone: [facility] Work Phone: 01-17-2022 10:56-0400 Diastolic blood pressure 44 mm[Hg] Dr. Tonio Fajardo Work Phone: [facility] Work Phone: 01-17-2022 10:56-0400 Heart rate 64 /min Dr. Tonio Fajardo Work Phone: [facility] Work Phone: 01-17-2022 10:56-0400 Respiratory rate 22 /min Dr. Tonio Fajardo Work Phone: [facility] Work Phone: 01-17-2022 10:56-0400 SaO2% (BldA) [Mass fraction] 95 % Dr. Tonio Fajardo Work Phone: [facility] Work Phone: 01-17-2022 10:56-0400 Systolic blood pressure 101 mm[Hg] Dr. Tonio Fajardo Work Phone: [facility] Work Phone: 01-04-2022 12:59-0400 Body temperature 96.4 [degF] Dr. Tonio Fajardo Work Phone: [facility] Work Phone: 01-04-2022 12:59-0400 Diastolic blood pressure 64 mm[Hg] Dr. Tonio Fajardo Work Phone: [facility] Work Phone: 01-04-2022 12:59-0400 Heart rate 70 /min Dr. Tonio Fajardo Work Phone: [facility] Work Phone: 01-04-2022 12:59-0400 Respiratory rate 16 /min Dr. Tonio Fajardo Work Phone: [facility] Work Phone: 01-04-2022 12:59-0400 Systolic blood pressure 135 mm[Hg] Dr. Tonio Fajardo Work Phone: [facility] Work Phone: 12-21-2021 13:10-0400 Body temperature 97 [degF] [facility] Work Phone: 12-21-2021 13:10-0400 Diastolic blood pressure 62 mm[Hg] [facility] Work Phone: 12-21-2021 13:10-0400 Heart rate 88 /min [facility] Work Phone: 12-21-2021 13:10-0400 Systolic blood pressure 173 mm[Hg] [facility] Work Phone: 12-18-2021 00:38-0400 Respiratory rate 16 /min [facility] Work Phone: 11-29-2021 13:03-0400 Body temperature 97.4 [degF] [facility] Work Phone: 11-29-2021 13:03-0400 Diastolic blood pressure 43 mm[Hg] [facility] Work Phone: 11-29-2021 13:03-0400 Heart rate 69 /min [facility] Work Phone: 11-29-2021 13:03-0400 Respiratory rate 16 /min [facility] Work Phone: 11-29-2021 13:03-0400 Systolic blood pressure 134 mm[Hg] [facility] Work Phone: 11-09-2021 13:07-0400 Body temperature 97 [degF] [facility] Work Phone: 11-09-2021 13:07-0400 Diastolic blood pressure 41 mm[Hg] [facility] Work Phone: 11-09-2021 13:07-0400 Heart rate 73 /min [facility] Work Phone: 11-09-2021 13:07-0400 Respiratory rate 18 /min [facility] Work Phone: 11-09-2021 13:07-0400 Systolic blood pressure 126 mm[Hg] [facility] Work Phone: Encounters Encounter Date Encounter Type Care Provider Facility Start: 04-16-2025 ambulatory [facility] Facility[facility] Start: 04-10-2025 Dr. Valdez Olivo MD -[facility] Start: 04-10-2025 Evaluation and management of inpatient [facility] Facility:[facility] Start: 04-10-2025 Carol Sousa [facility] Work Phone: Start: 04-10-2025 ambulatory [facility] Facility: [facility] Start: 04-10-2025 Dr. Nicola Roman MD [facility] Work Phone: Start: 04-09-2025 Dr. Santos Hsu MD -[facility] Start: 04-09-2025 Dr. [facility] Work Phone: Start: 04-08-2025 Dr. Issa Looney MD -[facility] Start: 04-08-2025 Dr. Nicola Roman MD -[facility] Work Phone: Start: 04-07-2025 Dr. Nicola Roman MD -[facility] Work Phone: Start: 04-06-2025 Dr. Deric Lantigua MD -[facility] Work Phone: Start: 04-05-2025 ambulatory Nicola Prakash ty:[facility] Start: 04-05-2025 End: 04-10-2025 Evaluation and management of inpatient Dr. Tonio Fajardo DO Work Phone: -Progressive Care Unit Start: 04-05-2025 End: 04-10-2025 Dr. Nicola Lindsey DO -[facility] Unit Work Phone: Start: 04-02-2025 End: 04-02-[address] Tonio Fajardo DO Work Phone: -Home Health Lab Start: 04-02-2025 Patient encounter procedure Carmelina E Aida -[facility] Start: 04-02-2025 End: 04-02-2025 Carmelina E Aida -[facility] Start: 04-02-2025 End: 04-02-2025 ambulatory Carmelina E Aida Facility:[facility] Start: 03-27-2025 End: 03-27-[address] Tonio Fajardo DO Work Phone: -Pulmonary Services/Neurology Start: 03-27-2025 End: 03-27-2025 Patient encounter procedure Leslie Arriaga PA -Pulmonary Services/Neurology Work Phone: Start: 03-27-2025 End: 03-27-2025 Leslie DAMIAN -Pulmonary Services/Neurology Work Phone: Start: 03-27-2025 End: 03-27-2025 ambulatory Leslie DAMIAN Facility:[facility] Start: 03-18-2025 End: 03-18-[address] Tonio Fajardo DO Work Phone: -Laboratory [facility] Start: 03-18-2025 End: 03-18-[address] Tonio Fajardo DO -Laboratory [facility] Start: 03-18-2025 End: 03-18-2025 Dr. Tonio Fajardo DO -Laboratory [facility] Start: 03-17-2025 End: 03-17-2025 Patient encounter procedure Leslie Arriaga [facility] Work Phone: Start: 03-17-2025 End: 03-17-2025 Leslie Arriaga [facility] Work Phone: Start: 03-17-2025 End: 03-18-[address] Tonio Fajardo DO Work Phone: -[facility] Start: 03-15-2025 End: 03-15-2025 Dr. Alex Matias MD -Emergency [facility] t Work Phone: Start: 03-15-2025 End: 03-15-2025 Emergency department patient visit Dr. Tonio Fajardo DO Work Phone: -Emergency Department Work Phone: Start: 03-09-2025 Non-patient / Non-visit Dr. Deric Lantigua MD [facility] Work Phone: Start: 03-09-2025 Dr. Deric Lantigua MD [facility] Work Phone: Start: 03-09-2025 Non-patient / Non-visit Dr. Willian Glaser MD -[facility] Start: 03-09-2025 Dr. Willian Glaser [facility] Start: 03-08-2025 Non-patient / Non-visit Dr. Marjorie castellano MD -[facility] Start: 03-08-2025 Dr. Marjorie Green MD [facility] Start: 03-07-2025 Non-patient / Non-visit Dr. Deric Lantigua MD [facility]icians Work Phone: Start: 03-07-2025 Dr. Deric Lantigua MD [facility] Work Phone: Start: 03-06-2025 Non-patient / Non-visit Dr. Deric Lantigua MD -[place] [facility] Work Phone: Start: 03-06-2025 Dr. Deric Lantigua MD -[facility] Inpatient Physicians Work Phone: Start: 03-06-2025 Non-patient / Non-visit Dr. Marjorie castellano MD -[facility] Start: 03-06-2025 Dr. Marjorie Green MD [facility] Start: 03-05-2025 ambulatory [facility] Facility: [place] Start: 03-05-2025 Non-patient / Non-visit Dr. Marjorie castellano MD -[facility] Start: 03-05-2025 Dr. Marjorie Green MD [facility] Start: 03-05-2025 Non-patient / Non-visit Dr. Deric Lantigua MD -[place] [facility] Work Phone: Start: 03-05-2025 Dr. Deric Lantigua MD -[facility] Inpatient [facility]icians Work Phone: Start: 03-04-2025 ambulatory Nicola Prakash ty:[facility] Start: 03-04-2025 End: 03-09-2025 Evaluation and management of inpatient Dr. Nicola Lindsey DO -Progressive Care Unit Work Phone: Start: 03-04-2025 End: 03-09-2025 Dr. Deric Lantigua MD -[facility] Work Phone: Start: 11-06-[address] Russ Zamora MD -[place] [facility] Start: 11-06-2024 End: 11-06-[address] Russ Zamora MD -[facility] Work Phone: Start: 11-06-2024 End: 11-06-2024 ambulatory Tonio Fajardo Facility[place] Start: 10-30-2024 End: 10-30-[address] Tonio Fajardo DO Work Phone: [facility] Work Phone: Start: 10-30-2024 End: 10-30-[address] Russ Zamora MD -Cat Scan, [facility] Work Phone: Start: 10-30-2024 End: 10-30-2024 ambulatory Russ Zamora Facility:[facility] Start: 10-23-2024 End: 10-23-2024 Patient encounter procedure Lorie Mart NP-C -[facility] Work Phone: Start: 10-23-2024 End: 10-23-2024 ambulatory Lorie Mart NP Facility:[facility] Start: 10-20-2024 End: 10-20-[address] Tonio Fajardo DO Work Phone: [facility] Work Phone: Start: 10-20-2024 End: 10-20-[address] Tonio Fajardo DO -[facility] Start: 10-20-2024 End: 10-20-2024 ambulatory Tonio Fajardo Facility:[facility] Start: 10-17-2024 ambulatory Lorie Mart NP Fac ility:[facility] Start: 10-17-2024 Non-patient / Non-visit Dr. Tyrell zuniga DO -[facility] Start: 10-16-2024 End: 10-16-[address] Tonio Fajardo DO Work Phone: [facility] Work Phone: Start: 10-16-2024 End: 10-16-2024 Patient encounter procedure Lorie Mart NP-C -Pulmonary Services/Neurology Work Phone: Start: 10-16-2024 End: 10-16-2024 ambulatory Lorie Mart NP Facility:[facility] Start: 09-25-2024 End: 09-25-2024 Patient encounter procedure Leslie DAMIAN -[facility] Work Phone: Start: 09-25-2024 End: 09-25-2024 ambulatory Tonio Fajardo Facility:[facility] Start: 09-25-2024 End: 09-25-2024 ambulatory Leslie DAMIAN Facility:[facility] Start: 07-03-2024 End: 07-03-[address] Joaquim Su[facility]rez [facility] -Laboratory, Specimen Work Phone: Start: 07-03-2024 End: 07-03-2024 ambulatory Joaquim Suárez Facility:[facility] Start: 06-17-2024 End: 06-17-2024 ambulatory Joaquim Suárez Facility:[facility] Start: 05-05-2024 End: 05-05-2024 ambulatory Tonio Fajardo [facility] Start: 04-28-2024 End: 04-28-2024 ambulatory Tonio Scotty Facility:[facility] Start: 12-24-2023 End: 12-24-[address] Tonio Fajardo Work Phone: [facility] Work Phone: Start: 12-24-2023 End: 12-24-[address] Tonio Fajardo Work Phone: [facility]-Laboratory, Specimen Work Phone: Start: 11-12-2023 End: 11-12-[address] oTnio Fajardo Work Phone: [facility] Work Phone: Start: 11-06-[address] Tonio Fajardo Work Phone: [facility] Start: 10-31-2023 End: 10-31-[address] Tonio Fajardo Work Phone: [facility] Work Phone: Start: 10-18-2023 End: 10-18-[address] Tonio Fajardo Work Phone: [facility] Work Phone: Start: 10-12-2023 End: 10-12-[address] Tonio Fajardo Work Phone: [facility] Work Phone: Start: 10-12-2023 End: 10-12-[address] Tonio Fajardo Work Phone: [facility]-Cat Scan, [facility] Work Phone: Start: 08-29-2023 End: 08-29-[address] Tonio Fajardo Work Phone: [facility] [facility] Work Phone: Start: 08-22-2023 Non-patient / Non-visit Dr. Min Fajardo Work Phone: [facility] Start: 08-22-2023 End: 08-22-[address] Tonio Fajardo Work Phone: [facility]-Cardiovascular Services Work Phone: Start: 07-26-2023 End: 07-26-[address] Tonio Fajardo Work Phone: [facility] Work Phone: Start: 07-26-2023 End: 07-26-[address] Tonio Fajardo Work Phone: [facility] [facility] Work Phone: Start: 07-25-2023 End: 07-25-[address] Tonio Fajardo Work Phone: [facility]-Pulmonary Medicine [facility] Work Phone: Start: 06-22-2023 End: 06-22-[address] Tonio Fajardo Work Phone: [facility] Work Phone: Start: 06-22-2023 End: 06-22-[address] Tonio Fajadro Work Phone: [facility]-Laboratory, Specimen Work Phone: Start: 06-08-2023 End: 06-08-2023 Admission to same day surgery center Dr. Tonio Fajardo Work Phone: [facility]-Surgical Day Care Start: 06-08-2023 End: 06-08-[address] Tonio Fajardo Work Phone: [facility] Work Phone: Start: 05-02-2023 End: 05-19-[address] [facility] Work Phone: Start: 04-20-2023 Non-patient / Non-visit Dr. Min Fajardo Work Phone: [facility] Start: 04-18-2023 End: 04-19-[address] Tonio Fajardo Work Phone: [facility] Work Phone: Start: 04-18-2023 End: 04-19-[address] Tonio Fajardo [facility] Work Phone: Start: 04-17-[address] Tonio Fajardo Work Phone: [facility] Start: 04-17-2023 End: 04-17-[address] Tonio Fajardo Work Phone: [facility] Work Phone: Start: 04-10-2023 End: 04-10-[address] Tonio Fajardo Work Phone: [facility] Work Phone: Start: 04-10-2023 End: 04-10-[address] Tonio Fajardo Work Phone: [facility] Work Phone: Start: 04-02-2023 Non-patient / Non-visit Dr. Min Fajardo Work Phone: [facility] Start: 04-02-[address] Tonio Fajardo [facility] Work Phone: Start: 03-19-2023 Non-patient / Non-visit Dr. Min Fajardo Work Phone: [facility] Start: 03-19-2023 End: 03-19-[address] Tonio Fajardo Work Phone: [facility] Work Phone: Start: 03-19-2023 End: 03-19-[address] Tonio Fajardo [facility] Work Phone: Start: 03-05-2023 Non-patient / Non-visit Dr. Min Fajardo Work Phone: [facility] Start: 02-23-2023 End: 02-23-[address] Tonio Fajardo Work Phone: [facility] Work Phone: Start: 02-19-2023 Non-patient / Non-visit Dr. Min Fajardo Work Phone: [facility] Start: 02-05-2023 Non-patient / Non-visit Dr. Min Fajardo Work Phone: [facility] Start: 02-05-2023 End: 02-16-[address] Tonio Fajardo Work Phone: [facility] Work Phone: Start: 02-05-2023 End: 02-16-[address] Tonio Fajardo Work Phone: [facility] Work Phone: Start: 01-22-2023 Non-patient / Non-visit Dr. Min Fajardo Work Phone: [facility] Start: 01-08-2023 Non-patient / Non-visit Dr. Min Fajardo Work Phone: [facility] Start: 01-08-2023 End: 01-17-[address] Tonio Fajardo Work Phone: [facility] Work Phone: Start: 01-08-2023 End: 01-17-[address] Tonio Fajardo [facility] Start: 12-30-2022 End: 12-31-2022 Emergency department patient visit Dr. Tonio Fajardo Work Phone: [facility]-Emergency Department Start: 12-25-2022 Non-patient / Non-visit Dr. Min Fajardo Work Phone: [facility] Start: 12-25-[address] Tonio Fajardo [facility] Start: 12-18-2022 Non-patient / Non-visit Dr. Min Fajardo Work Phone: [facility] Start: 12-12-2022 End: 12-12-[address] Tonio Fajardo [facility] Start: 12-11-2022 Non-patient / Non-visit Dr. Min Fajardo Work Phone: [facility] Start: 12-11-2022 End: 12-17-[address] Tonio Fajardo Work Phone: [facility] Work Phone: Start: 12-11-2022 End: 12-17-[address] Tonio Fajardo Work Phone: [facility] Start: 12-06-2022 Non-patient / Non-visit Dr. Min Fajardo Work Phone: [facility] Start: 11-27-2022 Non-patient / Non-[facility] Start: 11-20-2022 Non-patient / Non-visit Dr. Min Fajardo Work Phone: [facility] Start: 11-08-2022 Non-patient / Non-[facility] Start: 11-08-2022 End: 11-17-[address] Tonio Fajardo Work Phone: [facility] Start: 10-30-2022 Non-patient / Non-visit Dr. Min Fajardo Work Phone: [facility] Start: 10-23-2022 Non-patient / Non-visit [facility] Start: 10-18-2022 Non-patient / Non-visit Dr. Min Fajardo Work Phone: [facility] Start: 10-16-[address] Tonio Fajardo Work Phone: [facility] Start: 10-16-2022 End: 10-16-[address] Tonio Fajardo Work Phone: [facility] Start: 10-09-2022 Non-patient / Non-visit Dr. Min Fajardo Work Phone: [facility] Start: 10-09-2022 End: 10-09-[address] Tonio Fajardo Work Phone: [facility] Start: 10-09-2022 End: 10-17-[address] Tonio Fajardo Work Phone: [facility] Work Phone: Start: 10-09-2022 End: 10-17-[address] Tonio Fajardo [facility] Start: 10-09-[address] Tonio Fajardo Work Phone: [facility] Start: 10-02-2022 Non-patient / Non-visit Dr. Min Fajardo Work Phone: [facility] Start: 10-02-2022 End: 10-02-[address] Tonio Fajardo Work Phone: [facility] Start: 09-25-2022 Non-patient / Non-visit Dr. Min Fajardo Work Phone: [facility] Start: 09-18-2022 Non-patient / Non-visit Dr. Min Fajardo Work Phone: [facility] Start: 09-18-2022 End: 09-19-[address] Tonio Fajardo Work Phone: [facility] Work Phone: Start: 09-18-2022 End: 09-19-[address] Tonio Fajardo Work Phone: [facility] Start: 08-29-2022 Non-patient / Non-visit Dr. Min Fajardo Work Phone: [facility] Start: 08-15-2022 Non-patient / Non-visit Dr. Min Fajardo Work Phone: [facility] Start: 08-15-2022 End: 08-19-[address] Tonio Fajardo Work Phone: [facility] Work Phone: Start: 08-15-2022 End: 08-19-[address] Tonio Fajardo Work Phone: [facility] Start: 08-08-2022 End: 08-08-[address] Tonio Fajardo Work Phone: [facility] Start: 08-01-2022 Non-patient / Non-visit Dr. Min Fajardo Work Phone: [facility] Start: 07-28-2022 Telephone encounter Jessie Parra APRN.CNP Work Phone: [facility] Comment on above: Patient Update Start: 07-19-2022 End: 07-19-[address] Tonio Fajardo Work Phone: [facility] Start: 07-18-2022 Non-patient / Non-visit Dr. Min Fajardo Work Phone: [facility] Start: 07-18-2022 End: 07-19-2022 ambulatory Dr. Tonio Fajardo Work Phone: [facility] Work Phone: Start: 07-18-2022 End: 07-19-[address] Tonio Fajardo Work Phone: [facility] Start: 07-17-2022 End: 07-17-[address] Tonio Fajardo Work Phone: [facility] Start: 07-09-[address] [facility] Start: 07-09-2022 Non-patient / Non-visit Dr. Min Fajardo Work Phone: [facility] Start: 07-05-2022 End: 07-05-[address] Tonio Faajrdo Work Phone: [facility] Start: 06-28-2022 End: 06-28-[address] Tonio Fajardo Work Phone: [facility] Start: 06-26-2022 Non-patient / Non-visit Dr. Min Fajardo Work Phone: [facility] Start: 06-21-2022 End: 06-21-[address] Tonio Fajardo Work Phone: [facility] Start: 06-19-[address] [facility]io [facility]ajardo [facility] Start: 06-14-2022 End: 06-14-[address] Tonio Fajardo Work Phone: [facility] Start: 06-12-2022 Non-patient / Non-visit Dr. Min Fajardo Work Phone: [facility] Start: 06-12-2022 End: 06-19-[address] Tonio Fajardo Work Phone: [facility] Work Phone: Start: 06-12-2022 End: 06-19-[address] [facility]ardo [facility] Start: 06-06-2022 Non-patient / Non-visit Dr. Min Fajardo Work Phone: [facility] Start: 06-02-2022 Non-patient / Non-visit Dr. Min Fajardo Work Phone: [facility] Start: 06-02-2022 End: 06-02-[address] Tonio Fajardo Work Phone: [facility] Work Phone: Start: 06-02-2022 End: 06-02-[address] Tonio Fajardo Work Phone: [facility]-Pulmonary Services/Neurology Start: 06-01-2022 Non-patient / Non-visit Dr. Min Fajardo Work Phone: [facility] Start: 06-01-[address] Tonio Fajardo Work Phone: [facility] Start: 05-30-[address] Tonio Fajardo Work Phone: [facility] Start: 05-30-2022 End: 05-30-[address] Tonio Fajardo Work Phone: [facility] Start: 05-29-2022 Non-patient / Non-visit Dr. Min Fajardo Work Phone: [facility] Start: 05-29-[address] [facility]ajardo [facility] Start: 05-24-2022 End: 05-24-[address] Tonio Fajardo Work Phone: [facility] Start: 05-24-2022 Non-patient / Non-visit Dr. Min Fajardo Work Phone: [facility] Start: 05-24-[address] Tonio Fajardo [facility] Start: 05-22-2022 End: 05-22-[address] Tonio Fajardo Work Phone: [facility] Work Phone: Start: 05-22-2022 End: 05-22-[address] Tonio Fajardo Work Phone: [facility] Start: 05-17-2022 Non-patient / Non-visit Dr. Min Fajardo Work Phone: [facility] Start: 05-17-2022 End: 05-19-[address] Tonio Fajardo Work Phone: [facility] Work Phone: Start: 05-17-2022 End: 05-19-[address] Tonio Fajardo Work Phone: [facility] Start: 05-17-[address] Tonio Fajardo Work Phone: [facility] Start: 05-11-2022 End: 05-11-[address] Tonio Fajardo Work Phone: [facility] Start: 05-11-2022 End: 05-11-[address] Tonio Fajardo [facility] Start: 04-28-2022 Non-patient / Non-visit Dr. Min Fajardo Work Phone: [facility] Start: 04-28-2022 End: 04-28-[address] Tonio Fajardo Work Phone: [facility] Work Phone: Start: 04-28-2022 End: 04-28-[address] Tonio Fajardo Work Phone: [facility] Start: 04-26-[address] Tonio Fajardo [facility] Phone[facility] Start: 04-14-2022 End: 04-14-[address] Tonio Fajardo Work Phone: [facility] Work Phone: Start: 04-14-2022 End: 04-14-[address] Tonio Fajardo Work Phone: [facility] Start: 04-14-2022 End: 04-14-2022 Emergency department patient visit Dr. Tonio Fajardo Work Phone: [facility]Emergency Department Start: 04-12-2022 End: 04-12-[address] Tonio Fajardo Work Phone: [facility] Work Phone: Start: 04-12-2022 End: 04-12-[address] Tonio Fajardo Work Phone: [facility] Start: 04-12-2022 End: 04-19-[address] Tonio Fajardo Work Phone: [facility] Work Phone: Start: 04-12-2022 End: 04-19-[address] Tonio Fajardo Work Phone: [facility] Start: 04-12-[address] Tonio Fajardo Work Phone: [facility] Start: 04-06-2022 Telephone encounter Derek Rivera MD Work Phone: [facility] Comment on above: Results (COVID+) Start: 04-05-2022 End: 04-05-2022 ambulatory TONIO FAJARDO Facility:[facility] Start: 04-05-2022 Telephone encounter Jessie Parra APRN.[employer] Work Phone: [facility] Comment on above: Results Start: 04-05-2022 End: 04-05-2022 Subsequent hospital visit by physician Xr [facility] Work Phone: Radiology Comment on above: Acute cough [R05.1] Start: 04-05-2022 End: 04-05-2022 Patient encounter procedure Jessie Rodriguez APRN.[employer] Work Phone: [facility] Comment on above: Burning with urinati on (Primary Dx); Acute cough; Suspected COVID-19 virus infection Start: 03-01-2022 End: 03-19-[address] Tonio Fajardo Work Phone: [facility] Start: 02-08-2022 End: 02-16-[address] Tonio Fajardo Work Phone: [facility] Start: 01-17-2022 End: 01-17-[address] Tonio Fajardo Work Phone: [facility] Start: 01-04-2022 End: 01-17-[address] Tonio Fajardo Work Phone: [facility] Start: 12-21-2021 Registered Recurring [facility] Start: 12-19-2021 End: 12-19-2021 [facility] Start: 11-29-2021 End: 12-17-2021 Nutrition therapy [facility] Start: 11-09-2021 End: 11-17-2021 [facility] Procedures Date Procedure Procedure Detail Performing Clinician Start: 04-10-2025 Blood count leukocyt e wbc automated Dr. Tonio Fajardo DO Work Phone: Start: 04-10-2025 Glucose measurement, body fluid Dr. Tonio Fajardo DO Work Phone: Start: 04-10-[address] Tonio Fajardo DO Work Phone: Start: 04-10-2025 Polymorphonuclear le ukocyte count Dr. Tonio Fajardo DO Work Phone: Start: 04-10-2025 Calculation of inter national normalized ratio Dr. Tonio Fajardo DO Work Phone: Start: 04-10-2025 Ultrasonic guidance for thoracentesis Dr. Tonio Fajardo DO Work Phone: Start: 04-10-2025 CT of chest without contrast Dr. Tonio Fajardo DO Work Phone: Start: 04-10-2025 Blood count smear mc rscp w/mnl difrntl wbc count Dr. Tonio Fajardo DO Work Phone: Start: 04-10-[address] Tonio Fajardo DO Work Phone: Start: 04-10-2025 Mean corpuscular hem oglobin concentration determination Dr. Tonio Fajardo DO Work Phone: Start: 04-10-2025 Nucleated red blood cell count procedure Dr. Tonio Fajardo DO Work Phone: Start: 04-10-2025 Platelet mean volume determination Dr. Tonio Fajardo DO Work Phone: Start: 04-09-2025 Plain chest X-ray Dr. Nancy Fajardo DO Work Phone: Start: 04-09-2025 Serum inorganic phos phate measurement Dr. Tonio Fajardo DO Work Phone: Start: 04-06-[address] Tonio Fajardo DO Work Phone: Start: 04-06-2025 Complete ultrasound of kidneys and bladder Dr. Tonio Fajardo DO Work Phone: Start: 04-06-2025 Plain chest X-ray Dr. Nancy Fajardo DO Work Phone: Start: 04-05-2025 Urine microscopy: red cells Dr. Tonio Fajardo DO Work Phone: Start: 04-05-2025 Urnls dip stick/tabl et reagent auto microscopy Dr. Tonio Fajardo DO Work Phone: Start: 04-05-2025 Carbon dioxide measu rement, partial pressure Dr. Tonio Fajardo DO Work Phone: Start: 04-05-2025 Gases blood o2 satur ation only direct [place] Dr. Tonio Fajardo DO Work Phone: Start: 04-05-2025 Measurement of parti al pressure of oxygen in blood Dr. Tonio Fajardo DO Work Phone: Start: 04-05-[address] Tonio Fajardo DO Work Phone: Start: 04-05-2025 X-ray of chest, PA a nd lateral views Dr. Tonio Fajardo DO Work Phone: Start: 04-05-2025 Blood count smear mc rscp w/mnl difrntl wbc count Dr. Tonio Fajardo DO Work Phone: Start: 04-05-[address] Tonio Fajardo DO Work Phone: Start: 04-05-2025 Mean corpuscular hem oglobin concentration determination Dr. Tonio Fajardo DO Work Phone: Start: 04-05-2025 Nucleated red blood cell count procedure Dr. Tonio Fajardo DO Work Phone: Start: 04-05-2025 Platelet mean volume determination Dr. Tonio Fajardo DO Work Phone: Start: 04-05-2025 Dr. Tonio davis DO Work Phone: Start: 04-02-2025 Blood count smear mc rscp w/mnl difrntl wbc count Dr. Tonio Fajardo DO Work Phone: Start: 04-02-2025 Mean corpuscular hem oglobin concentration determination Dr. Tonio Fajardo DO Work Phone: Start: 04-02-2025 Nucleated red blood cell count procedure Dr. Tonio Fajardo DO Work Phone: Start: 04-02-2025 Platelet mean volume determination Dr. Tonio Fajardo DO Work Phone: Start: 03-18-2025 Blood count smear mc rscp w/mnl difrntl wbc count Dr. Tonio Fajardo DO Work Phone: Start: 03-18-2025 Mean corpuscular hem oglobin concentration determination Dr. Tonio Fajardo DO Work Phone: Start: 03-18-2025 Nucleated red blood cell count procedure Dr. Tonio Fajardo DO Work Phone: Start: 03-18-2025 Platelet mean volume determination Dr. Tonio Fajardo DO Work Phone: Start: 03-09-2025 Blood count smear mc rscp w/mnl difrntl wbc count Dr. Tonio Fajardo DO Work Phone: Start: 03-09-[address] Tonio Fajardo DO Work Phone: Start: 03-09-2025 Mean corpuscular hem oglobin concentration determination Dr. Tonio Fajardo DO Work Phone: Start: 03-09-2025 Nucleated red blood cell count procedure Dr. Tonio Fajardo DO Work Phone: Start: 03-09-2025 Platelet mean volume determination Dr. Tonio Fajardo DO Work Phone: Start: 03-06-[address] Tonio Fajardo DO Work Phone: Start: 03-06-2025 Serum inorganic phos phate measurement Dr. Tonio Fajardo DO Work Phone: Start: 03-05-[address] Tonio Fajardo DO Work Phone: Start: 03-05-2025 Total cholesterol:HD L ratio measurement Dr. Tonio Fajardo DO Work Phone: Start: 03-05-2025 Plain chest X-ray Dr. Nancy Fajardo DO Work Phone: Start: 03-04-2025 Urine microscopy: red cells Dr. Tonio Fajardo DO Work Phone: Start: 03-04-2025 Urnls [...] Phone: Comment on above: Sent directly to [facility] per ordering physician. Start: 12-24-2023 Investigation of tra nsfusion reaction Dr. Tonio Fajardo Work Phone: Start: [...] Fajardo Work Phone: Start: 06-22-2023 Investigation of tra nsfusion reaction Dr. Tonio Fajardo Work Phone: Start: [...] Fajardo Work Phone: Start: 01-08-2023 Investigation of tra nsfusion reaction Dr. Tonio Fajardo Work Phone: Start: [...] Fajardo Work Phone: Start: 05-17-2022 Positron emission to mography with computed tomography Dr. Tonio Fajardo Work Phone: Start: 04-28-2022 Plain chest X-ray Dr. Nancy Fajardo Work Phone: Start: 04-28-2022 Biopsy/Inj or Needle Placement Dr. Tonio Fajardo Work Phone: Start: 04-28-2022 Plain chest X-ray Dr. Nancy Fajardo Work Phone: Start: 04-12-2022 CT of thorax with contrast Dr. Tonio Fajardo Work Phone: Start: 04-05-2022 Radiologic exam chest 2 views Jessie Rodriguez ANIMAL ASSISTED THERAPIST.[facility] Work Phone: Start: 04-05-2022 Urnls dip stick/tabl et rgnt auto w/o microscopy Onelia Cuevas ANIMAL ASSISTED THERAPIST.[employer] Work Phone: Start: 11-02-2021 X-ray of both feet Anaerobic microbial culture Dr. Tonio Fajardo Work Phone: Anaerobic microbial culture Dr. Tonio Fajardo Work Phone: Anaerobic microbial culture Dr. Tonio Fajardo Work Phone: Bacteria identified in Blood by Culture Dr. Tonio Fajardo Work Phone: Investigation of tra nsfusion reaction Dr. Tonio Fajardo Work Phone: Investigation of tra nsfusion reaction Dr. Tonio Fajardo Work Phone: Investigation of tra nsfusion reaction Dr. Tonio Fajardo Work Phone: Microbial culture, routine D r. Tonio Fajardo Work Phone: Microbial culture, routine D rMarianna Fajardo Work Phone: Microbial culture, routine D r. Tonio Fajardo Work Phone: Urine culture Dr. Tonio robertson Work Phone: Urine culture Dr. Tonio robertson Work Phone: Plan of Treatment Date Care Activity Detail Author Start: 04-10-2025 Patient discharge [facility] Start: 04-10-2025 Microbial culture, b horace fluid [facility] Start: 04-10-2025 [facility] Start: 04-09-2025 Referral to service [facility] Start: 04-09-2025 Care planning and pr oblem solving actions [facility] Start: 04-09-2025 Assessment of risk o f venous thromboembolism [facility] Start: 04-09-2025 Catheterization of vein [facility] Start: 04-09-2025 Notification of physician [facility] Start: 04-09-2025 Taking patient vital signs [facility] Start: 04-09-2025 Wound care [facility] Start: 04-09-2025 End: 04-09-2025 [facility] Start: 04-09-2025 Care planning and pr oblem solving actions [facility] Start: 04-09-2025 [facility] Start: 04-08-2025 Catheterization of vein [facility] Start: 04-08-2025 Notification of physician [facility] Start: 04-08-2025 [facility] Start: 04-08-2025 Referral to knot bumper [facility] Start: 04-08-2025 End: 04-08-2025 Referral to service [facility] Start: 04-07-2025 Referral to occupati onal therapist [facility] Start: 04-07-2025 Referral to service [facility] Start: 04-07-2025 Provision of activit y privileges [facility] Start: 04-07-2025 Wound care [facility] Start: 04-06-2025 [facility] Start: 04-06-2025 Continuous pulse oximetry [facility] Start: 04-06-2025 Consultation for treatment [facility] Start: 04-06-2025 XR Chest Single view [facility] Start: 04-06-2025 [facility] Start: 04-06-2025 Inhalation therapy procedure [facility] Start: 04-05-2025 Following clinical p athway protocol [facility] Start: 04-05-2025 Assessment of risk o f venous thromboembolism [facility] Start: 04-05-2025 Care regimes management [facility] Start: 04-05-2025 Catheterization of vein [facility] Start: 04-05-2025 Insertion of cathete r into peripheral vein [facility] Start: 04-05-2025 Measuring intake and output [facility] Start: 04-05-2025 Notification of physician [facility] Start: 04-05-2025 Oxygen therapy [facility] Start: 04-05-2025 Providing care accor ding to standard [facility] Start: 04-05-2025 Provision of activit y privileges [facility] Start: 04-05-2025 Referral to occupati onal therapist [facility] Start: 04-05-2025 Referral to service [facility] Start: 04-05-2025 End: 04-05-2025 [facility] Start: 04-05-2025 Referral to forging die finisher [facility] Start: 04-05-2025 Verification routine [facility] Start: 04-05-2025 Urinalysis complete panel - Urine [facility] Start: 04-05-2025 Admission procedure [facility] Start: 04-05-2025 Hospital admission, emergency, from emergency room, medical nature [facility] Start: 04-05-2025 End: 04-05-2025 [facility] Start: 04-05-2025 Patient referral to dietitian [facility] Start: 03-27-2025 24 Hour ECG [facility] Start: 03-15-2025 [facility] Start: 03-15-2025 Control nasal hemorr min anterior simple [facility] Start: 03-09-2025 Referral to service [facility] Start: 03-09-2025 Patient discharge [facility] Start: 03-08-2025 Application of elast ic bandage [facility] Start: 03-07-2025 Introduction of urin dakota catheter [facility] Start: 03-06-2025 Inhalation therapy procedure [facility] Start: 03-05-2025 [facility] Start: 03-05-2025 Care planning and pr oblem solving actions [facility] Start: 03-05-2025 Chest 1 View (Portable) Chest 1 View (Portable) [facility] Start: 03-05-2025 XR Chest Single view [facility] Start: 03-05-2025 Care planning and pr oblem solving actions [facility] Start: 03-04-2025 Following clinical p athway protocol [facility] Start: 03-04-2025 Assessment of risk o f venous thromboembolism [facility] Start: 03-04-2025 Care regimes management [facility] Start: 03-04-2025 Catheterization of vein [facility] Start: 03-04-2025 Insertion of cathete r into peripheral vein [facility] Start: 03-04-2025 Measuring intake and output [facility] Start: 03-04-2025 Notification of physician [facility] Start: 03-04-2025 Oxygen therapy [facility] Start: 03-04-2025 Providing care accor ding to standard [facility] Start: 03-04-2025 Provision of activit y privileges [facility] Start: 03-04-2025 Referral to knot bumper [facility] Start: 03-04-2025 Referral to occupati onal therapist [facility] Start: 03-04-2025 Referral to service [facility] Start: 03-04-2025 End: 03-04-2025 [facility] Start: 03-04-2025 Hospital admission, emergency, from emergency room, medical nature [facility] Start: 03-04-2025 Verification routine [facility] Start: 03-04-2025 Admission procedure [facility] Start: 03-04-2025 Thyroid stimulating hormone measurement [facility] Start: 03-04-2025 [facility] Start: 03-04-2025 Patient referral to dietitian [facility] Start: 04-20-2024 Covid-19 Vaccine ( season) Covid-19 Vaccine ( season) [facility] Start: 04-20-2024 Influenza vaccination Influenza Vacc ine (#1) [facility] Start: 08-20-2023 Advance Directive Discussion Advance Directive Discussion [facility] Start: 06-22-2023 [facility] Start: 06-08-2023 Patient discharge [facility] Start: 06-08-2023 Anes open proc bones lower leg/ankle/foot nos ANESTH LOWER LEG BONE SURG [facility] Start: 06-08-2023 Osteot w/wo lngth shrt/corrj 1st metar INCISION OF METATARSAL [facility] Start: 06-08-2023 Prep site f/s/n/h/f/ g/m/d gt 1st 100 sq cm/1pct WOUND PREP F/N/HF/G [facility] Start: 06-08-2023 Sub grft f/s/n/h/f/g /m/d <100sq cm 1st 25 sq cm SKIN SUB GRAFT FACE/NK/HF/G [facility] Start: 06-08-2023 Fluoroscopic guidance O.R. Fluoro fo r C-Arm [facility] Start: 06-08-2023 Radiography of foot Foot 2 Views [facility] Start: 12-30-2022 [facility] Start: 12-30-2022 End: 12-30-2022 Blood culture [facility] Start: 12-30-2022 End: 12-30-2022 [facility] Start: 10-16-2022 CBC W Auto Different ial panel - Blood [facility] Start: 10-16-2022 Lactate dehydrogenas e measurement [facility] Start: 10-16-2022 End: 10-16-2022 [facility] Start: 07-18-2022 [facility] Work Phone: Start: 05-18-2022 [facility] Work Phone: Start: 05-11-2022 Patient referral [facility] Work Phone: Start: 04-28-2022 CORE NDL BX LNG/MED PERQ CORE NDL BX LNG/MED PERQ [facility] Work Phone: Start: 04-28-2022 Following clinical p athway protocol [facility] Work Phone: Start: 04-28-2022 Catheterization of vein [facility] Work Phone: Start: 04-28-2022 Oxygen therapy [facility] Work Phone: Start: 04-28-2022 Patient discharge [facility] Work Phone: Start: 04-28-2022 Vital signs measurements [facility] Work Phone: Start: 04-20-2022 Influenza vaccination INFLUENZA (#1) [facility] Start: 04-05-2022 End: 04-19-2022 Influenza virus A and B RNA and SARS-CoV-2 (COVID-19) N gene panel - Respiratory specimen by BRYAN with probe detection [facility] Work Phone: Comment on above: Expected: 04/05/2022 , Expires: 04/19/2022 Start: 08-20-2021 ADVANCE DIRECTIVE DISCUSSION ADVANCE DIRECTIVE DISCUSSION [facility] Start: 08-20-2021 DEPRESSION ASSESSMENT DEPRESSION ASS ESSMENT [facility] Start: 05-04-2021 COVID-19 VACCINE (3 - Booster for Moderna series) COVID-19 VACCINE (3 - Booster for Moderna series) [facility] Start: 01-27-2021 COVID-19 VACCINE (3 - Booster for Moderna series) COVID-19 VACCINE (3 - Booster for Moderna series) [facility] Start: 01-15-2020 RSV Vaccine (1 - 1-d ose 75+ series) RSV Vaccine (1 - 1-dose 75+ series) [facility] Start: 12-01-2018 DIABETES SCREEN [facility] Start: 12-01-2018 Diabetes Screening Diabetes Screenin g [facility] Start: 2010 Pneumococcal Vaccine : 65+ (1 of 1 - PCV) Pneumococcal Vaccine: 65+ (1 of 1 - PCV) [facility] Start: 2010 PNEUMOCOCCAL: 65+ (1 - PCV) PNEUMOCOCCAL: 65+ (1 - PCV) [facility] Start: 1995 SHINGRIX VACCINE (1 of 2) HEIN GRIX VACCINE (1 of 2) [facility] Start: 01-15-1964 Urine microalbumin profile [facility] Start: 1963 Anxiety Screening Anxiety Screening [facility] Start: 1963 [facility] Start: 1963 HEPATITIS C SCREENING HEPATITIS C SC DARCY [facility] Start: 1957 Adult depression scr eening assessment [facility] 24 Hour ECG [facility] Alanine aminotransfe rase [Enzymatic activity/volume] in Serum or Plasma [facility] Albumin [Mass/volume ] in Serum or Plasma [facility] Alkaline phosphatase [Enzymatic activity/volume] in Serum or Plasma [facility] Anaerobic Culture Anaerobic Culture [facility] Work Phone: Anion gap measurement [facility] Aspartate aminotrans ferase [Enzymatic activity/volume] in Serum or Plasma [facility] Bacteria identified in Blood by Culture Blood Culture [facility] Bacteria identified in Body fluid by Culture [facility] Bacteria identified in Unspecified specimen by Anaerobe culture [facility] Work Phone: Bacteria identified in Unspecified specimen by Anaerobe culture [facility] Bacteria identified in Urine by Culture URINE CULTURE Microbiology Routine Burning with urination 04/05/2022 1:58 PM EDT [facility] Work Phone: Bacteria identified in Urine by Culture Urine Culture [facility] Bilirubin, total measurement [facility] BUN/Creatinine ratio [facility] Calcium [Mass/volume ] in Serum or Plasma [facility] Carbon dioxide, tota l [Moles/volume] in Serum or Plasma [facility] CBC W Auto Different ial panel - Blood [facility] Work Phone: CBC W Auto Different ial panel - Blood [facility] CBC W Auto Different ial panel - [facility] Chloride [Moles/volu me] in Serum or Plasma [facility] Creatinine [Moles/vo lume] in Serum or Plasma [facility] CT Chest and Abdomen W contrast IV [facility] CT Chest W contrast IV [facility] Work Phone: CT Chest W contrast IV [facility] Cytology report of B horace fluid Cyto stain [facility] Glucose [Mass/volume ] in Serum or Plasma [facility] Hematocrit [Volume Fraction] of Blood [facility] Hemoglobin [Mass/vol ume] in Blood [facility] Hemoglobin A1c/Hemoglobin.total in Blood [facility] Lactate dehydrogenas e measurement [facility] Lactate dehydrogenas e measurement [facility] LDH [facility] Work Phone: Leukocytes [#/volume ] in Blood [facility] Magnesium measurement [facility] Mean corpuscular hemoglobin concentration determination [facility] Mean corpuscular hemoglobin determination [facility] Measurement of renal function [facility] Microbial culture, routine Wound Culture [facility] Work Phone: Microscopic observat ion [Identifier] in Unspecified specimen by Gram stain [facility] MR Brain WO and W co ntrast IV [facility] Work Phone: Natriuretic peptide. B prohormone N-Terminal [Mass/volume] in Serum or Plasma [facility] Natriuretic peptide. B prohormone N-Terminal [Mass/volume] in Serum or Plasma [facility] Neutrophil count [facility] Neutrophil percent differential count [facility] Patient Education [facility] Work Phone: Patient referral [facility] Work Phone: Platelets [#/volume] in Blood [facility] Positron emission tomography with computed tomography [facility] Work Phone: Potassium [Moles/vol ume] in Serum or Plasma [facility] Procedure [facility] PT Unspecified body region [facility] Radiation oncology A ND/OR radiotherapy [facility] Work Phone: Radiation oncology A ND/OR radiotherapy [facility] Red blood cell count [facility] Red cell distributio n width determination [facility] Sodium [Moles/volume ] in Serum or Plasma [facility] Total protein measurement [facility] Troponin T.cardiac [Mass/volume] in Serum or Plasma by High sensitivity method [facility] Urea nitrogen [Mass/volume] in Serum or Plasma [facility] Immunizations Immunization Date Immunization Notes Care Provider Kath castillo 08-03-2014 influenza virus vaccine, unspecified formulation [facility] [place] Work Phone: [facility] 06-20-2013 Influenza virus vaccine [facility] 06-20-[address] [facility] Work Phone: 06-20-2013 pneumococcal vaccine , unspecified formulation Dr. Tonio Fajardo Work Phone: [facility] Payers Date Payer Category Payer Self-pay [id number] 2022 Self-pay [id number] 2009 Medicare [id number] 2009 Medicare MEDICARE MEDICAR E A AND B [id number] 2009-Present [phone] [address] [address] [place] [address] Medicare [id number] 2009 [employer] ( and others) [id number] 2009 Unknown FOR LIFE [id number] 2009-Present [phone] [address] [place] [address] Indemnity [id number] Unknown [id number] 2.840.1.661716.3.579.2 .462 Unknown [id number] 2.840.1.439050.3.579.2 .462 Unknown [id number] 2.16840.1.309887.3.579.2 .462 Unknown [id number] 2.16840.1.411325.3.579.2 .462 Unknown [id number] 2.16.840.1.119432.3.579.2 .462 Unknown [id number] 2.16840.1.368983.3.579.2 .462 Unknown [id number] 2.840.1.701942.3.579.2 .462 Unknown [id number] 2.840.1.392125.3.579.2 .462 Unknown [id number] 2.840.1.607437.3.579.2 .462 Unknown [id number] 2.840.1.253848.3.579.2 .462 Unknown [id number] 2.840.1.269069.3.579.2 .462 Unknown [id number] .840.1.900458.3.579.2 .462 Unknown [id number] 2.840.1.403601.3.579.2 .462 Unknown [id number] 2.840.1.513110.3.579.2 .462 Unknown [id number] .840.1.803859.3.579.2 .462 Unknown [id number] .840.1.948363.3.579.2 .462 Unknown [id number] .840.1.898753.3.579.2 .462 Unknown [id number] .840.1.178426.3.579.2 .462 Unknown [id number] .840.1.763249.3.579.2 .462 Unknown [id number] .840.1.224307.3.579.2 .462 Unknown [id number] .840.1.486745.3.579.2 .462 Unknown [id number] 2.840.1.044393.3.579.2 .462 Unknown [id number] 2.840.1.652104.3.579.2 .462 Unknown [id number] 2.840.1.666069.3.579.2 .462 Unknown [id number] 2.16.840.1.560303.3.579.2 .462 Unknown [id number] 2.16.840.1.021051.3.579.2 .462 Unknown [id number] 2.16.840.1.484944.3.579.2 .462 Unknown [id number] 2.16.840.1.670673.3.579.2 .462 Unknown [id number] 2.16.840.1.573832.3.579.2 .462 Unknown [id number] 2.16.840.1.899160.3.579.2 .462 Unknown [id number] 2.16.840.1.538862.3.579.2 .462 Unknown [id number] 2.16.840.1.435816.3.579.2 .462 Unknown [id number] 2.16.840.1.933558.3.579.2 .462 Unknown [id number] 2.16.840.1.732291.3.579.2 .462 Unknown [id number] 2.16.840.1.254412.3.579.2 .462 Unknown [id number] 2.16.840.1.277371.3.579.2 .462 Unknown [id number] 2.16.840.1.926713.3.579.2 .462 Unknown [id number] 2.16.840.1.684825.3.579.2 .462 Unknown [id number] 2.16.840.1.965726.3.579.2 .462 Unknown [id number] 2.16.840.1.106850.3.579.2 .462 Unknown [id number] 2.16.840.1.022669.3.579.2 .462 Unknown [id number] 2.16.840.1.639036.3.579.2 .462 Social History Date Type Detail Facility Start: 01-06-2021 End: 10-31-2023 Tobacco smoking status NEIS Unknown if ever smoked [facility] Start: 08-27-2013 None [facility] Start: 03-18-2014 Spouse/ Signif icant Other [facility] Start: 06-20-2014 Non-smoker [facility] Start: 1945 Sex Assigned At Male [facility] Start: 04-05-2022 End: 04-05-2025 Tobacco smoking status NHIS Ex-smoker [facility] Work Phone: History of tobacco use Current smoker [facility] Work Phone: History of tobacco use Cigarette Smoker [facility] Work Phone: Start: 04-05-2022 Tobacco use and exposure Former smokeless tobacco user [facility] Work Phone: Start: 1945 Sex Assigned At Not on file [facility] Start: 03-26-2022 End: 04-05-2022 Exposure to SARS-CoV-2 (event) Not sure [facility] Work Phone: Start: 04-05-2022 History of Social function [facility] Start: 04-05-2022 Tobacco use panel [facility] Start: 10-30-2024 End: 11-10-2024 Sex Male (finding) [facility] Medical Equipment Procedure Code Equipment Code [...] x 2CM FDA Start : 06-08-2023 Bunionectomy FDA Start: 06-08-2023 Bunionectomy FDA Start: 06-08-2023 Bunionectomy FDA Start: 06-08-2023 ([id number]) [id number] 1)[id number] FDA Start: 04-09-2025 ([id number]) [id number] 1)[id number] FDA Start: 04-09-2025 ([id number]) [id number] 1)[id number] FDA Start: 04-09-2025 Goals Date Patient Goal Desired Activity /State Functional Status Date Assessment Result Facility 04-10-2025 Functional status Stand and pivot [facility] Work Phone: 03-09-2025 Functional status Chair [facility] Work Phone: Mental Status Date Assessment Result Facility 04-10-2025 Cognitive function Voice/Name [facility] Work Phone: 04-05-2025 Cognitive function Awake;Alert;A ppropriate;Follow s Commands [facility] Work Phone: 03-09-2025 Cognitive function Voice/Name [facility] Work Phone: 06-08-2023 Cognitive function Voice/Name [facility] Work Phone: 12-30-2022 Cognitive function Level Of Cons ciousness Awake;Alert;Appropriate;Follow s Commands [facility] Work Phone: 04-28-2022 Cognitive function Voice/Name [facility] Work Phone: 04-14-2022 Cognitive function Level Of Cons ciousness Awake;Appropriate;Follows Commands;Drowsy [facility] Work Phone: Clinical Notes 04-05-2022 to 04-10-2025 Note Date & Type Note Facility 04-10-2025 Note [facility] 04-10-2025 Discharge summary Note Date/Time April 10, 2025 4:10pm [facility] Medical Records Department [address] [place] [address] Transfer to [facility] MR#: [id number] Acct: [id number] Name: PEDRO HILLMAN Rep #:[id number] : 1945 80 From: Nicola Roman MD PCP: Dr. Tonio Fajardo, DO Status:ADM IN Certification of patient admission REQUIRED AT TIME OF ADMISSION. I CERTIFY THAT POST-HOSPITAL ECF SERVICES ARE REQUIRED TO BE GIVEN ON AN IN-PATIENT BASIS BECAUSE OF THE ABOVE NAMED PATIENT'S NEED FOR RESIDENTIAL CARE ON A CONTINUING BASIS FOR THE CONDITION(S) FOR WHICH HE/SHE WAS RECEIVING IN-PATIENT HOSPITAL SERVICES PRIOR TO HIS/HER TRANSFER TO THE [facility]. 04/10/25 1610<Electronically signed by Nicola Roman MD> Diet Diet Order/Speech Therapy: INPATIENT Hospital Diet / Speech Therapy Order(s) 04/09/25 16:18 Diet: Cardiac - Heart Healthy Dietary Modifications:: Consistent Carbohydrate Type of Dietary Supplement:: Glucerna Shake Diet Comments: 240ml glucerna shake with breakfast DC O2, CPAP, BIPAP needs Home O2 Discharge instructions: Yes Type of respiratory needs?: Oxygen Oxygen frequency: At rest (2) and With Ambulation Oxygen liters per minute during Ambulation: 3 Wound(s) Right thigh: Wound Type: Burn Dressing Change: foam dressing L chest- pacer: Wound Type: Surgical Incision Back - R side: Wound Type: Puncture Therapies Physical Therapy: Eval and Treat Occupational Therapy: Eval and Treat Problem/Diagnosis (1) DARIUSZ (acute kidney injury): Status: Acute Code(s): N17.9 - Acute kidney failure, unspecified (2) CKD (chronic kidney disease), stage IV: Status: Chronic Code(s): N18.4 - Chronic kidney disease, stage 4 (severe) (3) Respiratory insufficiency: Status: Acute Code(s): R06.89 - Other abnormalities of breathing Plan Patient is an 80-year-old gentleman with multiple comorbidities including chronic congestive heart failure with preserved ejection fraction, chronic kidney disease stage IV who presented with progressive shortness of breath. Imaging studies demonstrated features consistent with pulmonary vascular congestionand assessment of acute congestive heart failure admitted admitted to monitored bed for further management 1. Acute on chronic congestive heart failure with preserved ejection fraction ? Echo from 03/05/2025 demonstrated EF of 55% with PASP of 42 mmHg. Patient admitted to monitored bed manage with strict input and output, fluid restriction, daily weights as well as diuretic therapy with furosemide ? Patient continues to diurese well plan is for patient to be assessed for discharge ? 04/09/2025; patient discharged the day prior was placed on hold after he experienced a long pause. ? 04/10/2025; patient diuretic therapy restarted 2. Tachybradycardia syndrome Plan was for patient to be discharged home however discharge was discontinued after patient complained of feeling lightheaded. Systolic blood pressure was inthe high 90s. Telemetry did demonstrate significant sinus pauses. Patient is on Cardizem as well as beta-blockers both held consult placed to cardiology for tachybradycardia syndrome. Plan for patient to undergo pacemaker placement on 04/09/2025 ? 04/10/2025; patient underwent pacemaker placement by Dr. Looney on 04/09/2025 3. 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 Plan is for patient to be assessed for home oxygen prior to discharge. Patient current setting is 3 L with activity and 2 L at baseline. Patient daughter had asked for palliative care consultation the day prior consult was placed ? 04/09/2025; patient requested for her scheduled bronchodilator treatment to be changed to as needed ? 04/10/2025; with patient being significantly dyspneic at rest decision was madeto order CT of the chest which demonstrated moderate right pleural effusion withcompressive atelectasis 4. Moderate right-sided pleural effusion ? CT of the chest ordered as part of his eval did show Moderate right pleural effusion with compressive atelectasis in the right lower lobe as well as airspace disease in the right upper lobe with volume loss. Small left pleural effusion with left basilar atelectasis. Findings suggestive of CHF. - An order was given for patient to undergo ultrasound-guided thoracocentesis patient is on apixaban which had been held for his pacemaker placement. Use of incentive spirometry also ordered. Did order serum LDH body fluid LDH, Protein culture as well as cytology given patient previous history of lung malignancy 4. Hyperkalemia ? Present on admission potassium level was 5.8. Treated per protocol potassium as of 04/07/2025 is 4.6 5. DARIUSZ superimposed chronic kidney disease stage IV ? Patient kidney function at baseline. Patient being followed by nephrology ? 04/08/2025 patient creatinine down to 1.91 6. Coronary artery disease ? With previous CABG; patient is on guideline directed medical therapy 7. History of non-small cell lung CA involving the right upper lobe ? Patient was treated with radiation therapy currently followed by [facility] oncology and will start 8. Chronic persistent A-fib ? Rate controlled on systemic anticoagulation with apixaban 9. Hypertension ? Blood pressure controlled, home medications continued with dose adjustment as needed 10. Diabetes mellitus type 2 ? Patient was on long-acting insulin with glargine 30 units at bedtime home discontinued also placed on Accu-Cheks AC and at bedtime with sliding scale coverage 11. BPH with lower urinary obstructive symptoms - Patient treated with tamsulosin 12. COPD ? Currently not in exacerbation did continue patient bronchodilator as well as inhaled corticosteroid treatment regimen 13. Dyslipidemia ?Patient is on statin therapy, continued at home dose 14. Chronic degenerative arthritis - Tylenol as needed 15. Peripheral artery disease -with history of left lower extremity ulcer status post aortofemoral bypass graft in 2009 and chronic venous insufficiency. 16 . Anemia ? Secondary to chronic disorder monitoring H&H and transfuse if patient becomes symptomatic or hemoglobin falls below 7 17. DVT prophylaxis ? Patient is on apixaban Time spent in the patient's overall evaluation,decision-making process, review of diagnostic data, adjustment of management, discussion with other providers, nursing nursing and ancillary staff involved in patient's care documentation, 52 Minutes Allergies/Procedures Done in Hospital Allergies ibuprofen Allergy (Severe, Verified 04/05/25 16:44) Facial swelling (angioedema) Type of Care/Length of Stay Estimated LOS: Convalescent Care Less Than 30 days Type of Care Needed: Skilled Rehab Potential: Good Prognosis: Good Additional Orders/Day of Discharge Day of Discharge: 04/10/25 Dietary and Speech Recommendations Dietitian Recommendations/Changes: Adjust to cardiac; consistent carbohydrate diet. Will discontinue vanilla magic cup with dinner, will order 240ml glucerna shake with dinner. Will monitor weight trends. Discharge Plan Admission Admit Date/Time: 04/05/25 19:55 Attending Provider: Nicola Roman Primary Care Provider: Tonio Fajardo Consulting Providers: Davon Saravia; Nicola Lindsey; Deric Lantigua; Issa Looney Discharge Orders/Prescriptions Prescriptions: New prednisone 20 mg tablet 20 mg PO BID Qty: 10 0RF cefdinir 300 mg capsule 300 mg PO BID Qty: 10 0RF guaifenesin [Mucinex] 600 mg tablet extended release 12hr 1,200 mg PO BID Qty: 20 0RF furosemide [Lasix] 40 mg tablet 40 mg PO DAILY Qty: 60 0RF Continued multivitamin [Daily Multi-Vitamin] Tablet 1 tab [...] glargine 100 UNIT/ML solution 30 unit SQ QHS Januvia 50 mg Tablet 50 mg PO DAILY Eliquis 5 mg Tablet 2.5 mg PO BID 30 Days Qty: 30 3RF guaifenesin 1,200 mg tablet extended release 12hr 1,200 mg PO Q12H 7 Days Qty: 14 6RF tamsulosin 0.4 mg Capsule 0.4 mg PO DAILY@1730 30 Days Qty: 30 2RF clopidogrel 75 mg tablet 75 mg PO DAILY insulin glargine [Lantus Solostar U-100 Insulin] 100 unit/mL (3 mL) insulin pen subcut metoprolol succinate 25 mg tablet extended release 24 hr 12.5 mg PO BID Qty: 90 3RF Discontinued diltiazem HCl 120 mg Capsule,Extended Release 24hr 120 mg PO DAILY 30 Days Qty: 30 2RF No Action (DME) OXYGEN - Supplemental ([facility] INFORMATIONAL USE ONLY) Gas See Rx Instructions .ROUTE Patient Comments: 2 lpm at rest, 3 lpm on exertion, 2 lpm at HS DME company: [employer] Rx Instructions: As directed Referrals / Follow Up: Carol Sousa [Registered Nurse] - 04/21/25 10:00 am ( FOLLOW UP PACER AND WOUNDCHECK ) Tonio Fajardo DO [Primary Care Provider] - Within 1 Week Disposition Disposition (needs filled in before D/C Order can be placed): Home, Self Care 04/10/25 1610 <Electronically signed by Nicola Roman MD> Cosigner Signature (if applicable): CC: Dr. Issa Looney MD; Dr. Nicola Lindsey DO; Dr. Davon Saravia MD; Dr. Tonio Fajardo DO; Dr. Deric Lantigua MD ~ [facility] Work Phone: 1(982) 871-923008-22-2025 Discharge summary Author Nicola Roman [facility] Note Date/Time April 10, 2025 4: 23pm [facility] Medical Records Department [address] [place] [address] Discharge Summary 04/10/25 1610 MR#: [id number] Acct: [id number] Name: PEDRO HILLMAN Rep #:[id number] : 1945 80 From: Nicola Roman MD PCP: Dr. Tonio Fajardo DO Status:ADM IN Location: [facility] [id number] Providers Date of Admission: 04/05/25 Date of Discharge: 04/10/25 Primary Care Physician: Dr. Tonio Fajardo DO Consultations 04/05/25 20:36 Consult: Nephrology Routine Consulting Provider: Davon Saravia Reason for Consult: CKD; stage IV with Hyperkalemia and AE CHF. EMERGENT Consult: No MD Notified: Yes Date Notified: 04/06/25 Time Notified: 06:58 Method of Notification: Answering Service 04/06/25 07:14 Consult: Onc/Wound/photo studio assistant Routine Comment: Reason for Consult:: burn R thigh 04/08/25 15:38 Consult: Cardiology Routine Consulting Provider: Issa Looney Reason for Consult: Sinus pauses EMERGENT Consult: No MD Notified: Yes Date Notified: 04/08/25 Time Notified: 15:38 Method of Notification: Text Reason For Visit: AE OF CHRONIC DIASTOLIC CHF, ELEVATED TROPONIN T Diagnosis Discharge Diagnosis (1) DARIUSZ (acute kidney injury): Status: Acute Code(s): N17.9 - Acute kidney failure, unspecified (2) CKD (chronic kidney disease), stage IV: Status: Chronic Code(s): N18.4 - Chronic kidney disease, stage 4 (severe) (3) Respiratory insufficiency: Status: Acute Code(s): R06.89 - Other abnormalities of breathing Plan Patient is an 80-year-old gentleman with multiple comorbidities including chronic congestive heart failure with preserved ejection fraction, chronic kidney disease stage IV who presented with progressive shortness of breath. Imaging studies demonstrated features consistent with pulmonary vascular congestion and assessment of acute congestive heart failure admitted admitted tomonitored bed for further management 1. Acute on chronic congestive heart failure with preserved ejection fraction ? Echo from 03/05/2025 demonstrated EF of 55% with PASP of 42 mmHg. Patient admitted to monitored bed manage with strict input and output, fluid restriction, daily weights as well as diuretic therapy with furosemide ? Patient continues to diurese well plan is for patient to be assessed for discharge ? 04/09/2025; patient discharged the day prior was placed on hold after he experienced a long pause. ? 04/10/2025; patient diuretic therapy restarted 2. Tachybradycardia syndrome Plan was for patient to be discharged home however discharge was discontinued after patient complained of feeling lightheaded. Systolic blood pressure was inthe high 90s. Telemetry did demonstrate significant sinus pauses. Patient is on Cardizem as well as beta-blockers both held consult placed to cardiology for tachybradycardia syndrome. Plan for patient to undergo pacemaker placement on 04/09/2025 ? 04/10/2025; patient underwent pacemaker placement by Dr. Looney on 04/09/2025 3. 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 Plan is for patient to be assessed for home oxygen prior to discharge. Patient current setting is 3 L with activity and 2 L at baseline. Patient daughter had asked for palliative care consultation the day prior consult was placed ? 04/09/2025; patient requested for her scheduled bronchodilator treatment to be changed to as needed ? 04/10/2025; with patient being significantly dyspneic at rest decision was madeto order CT of the chest which demonstrated moderate right pleural effusion withcompressive atelectasis 4. Moderate right-sided pleural effusion ? CT of the chest ordered as part of his eval did show Moderate right pleural effusion with compressive atelectasis in the right lower lobe as well as airspace disease in the right upper lobe with volume loss. Small left pleural effusion with left basilar atelectasis. Findings suggestive of CHF. - An order was given for patient to undergo ultrasound-guided thoracocentesis patient is on apixaban which had been held for his pacemaker placement. Use of incentive spirometry also ordered. Did order serum LDH body fluid LDH, Protein culture as well as cytology given patient previous history of lung malignancy ? 04/10/2025;Approximately 1270 mL of clear yellow fluid was successfully removed, a portion sent to the laboratory for evaluation. Results of diagnosticstudy pending at the time of discharge 4. Hyperkalemia ? Present on admission potassium level was 5.8. Treated per protocol potassium as of 04/07/2025 is 4.6 5. DARIUSZ superimposed chronic kidney disease stage IV ? Patient kidney function at baseline. Patient being followed by nephrology ? 04/08/2025 patient creatinine down to 1.91 6. Coronary artery disease ? With previous CABG; patient is on guideline directed medical therapy 7. History of non-small cell lung CA involving the right upper lobe ? Patient was treated with radiation therapy currently followed by [facility] oncology and will start 8. Chronic persistent A-fib ? Rate controlled on systemic anticoagulation with apixaban 9. Hypertension ? Blood pressure controlled, home medications continued with dose adjustment as needed 10. Diabetes mellitus type 2 ? Patient was on long-acting insulin with glargine 30 units at bedtime home discontinued also placed on Accu-Cheks AC and at bedtime with sliding scale coverage 11. BPH with lower urinary obstructive symptoms - Patient treated with tamsulosin 12. COPD ? Currently not in exacerbation did continue patient bronchodilator as well as inhaled corticosteroid treatment regimen 13. Dyslipidemia ?Patient is on statin therapy, continued at home dose 14. Chronic degenerative arthritis - Tylenol as needed 15. Peripheral artery disease -with history of left lower extremity ulcer status post aortofemoral bypass graft in 2009 and chronic venous insufficiency. 16 . Anemia ? Secondary to chronic disorder monitoring H&H and transfuse if patient becomes symptomatic or hemoglobin falls below 7 17. DVT prophylaxis ? Patient is on apixaban Time spent in the patient's overall evaluation,decision-making process, review of diagnostic data, adjustment of management, discussion with other providers, nursing nursing and ancillary staff involved in patient's care documentation, 52 Minutes Medications at Discharge Home Medications insulin glargine 100 unit/mL subcutaneous solution 30 unit SQ QHS diabetes 11/19/19 multivitamin (Daily Multi-Vitamin tablet) 1 tab PO DAILY supplement 06/28/20 sitagliptin phosphate 50 mg tablet (Januvia) 50 mg PO DAILY diabetes 11/02/21 pravastatin 20 mg tablet 20 mg PO [...] inh inhalation QDAY copd #60 ea 10/23/24 apixaban 5 mg tablet (Eliquis) 2.5 mg (1/2 x 5 mg) PO BID blood thinner 30 days #30 tabs 03/09/25 guaifenesin 1,200 mg tablet, extended release 12 hr 1,200 mg PO Q12H cough 7 days #14 tabs 03/09/25 tamsulosin 0.4 mg capsule 0.4 mg PO DAILY@1730 prostate 30 days #30 caps 03/09/25 metoprolol succinate 25 mg tablet,extended release 24 hr 12.5 mg (1/2 x 25 mg) PO BID blood thinner #90 tabs 04/03/25 clopidogrel 75 mg tablet 75 mg PO DAILY anti platelet 04/05/25 insulin glargine 100 unit/mL (3 mL) subcutaneous pen (Lantus Solostar U-100 Insulin) unit subcut 04/05/25 cefdinir 300 mg capsule 300 mg PO BID #10 caps 04/08/25 furosemide 40 mg tablet (Lasix) 40 mg PO DAILY #60 tabs 04/08/25 guaifenesin 600 mg tablet, extended release 12 hr (Mucinex) 1,200 mg (2 x 600 mg) PO BID #20 tabs 04/08/25 prednisone 20 mg tablet 20 mg PO BID #10 tabs 04/08/25 OXYGEN - Supplemental ([facility] INFORMATIONAL USE ONLY) 04/09/25 Physical Exam Narrative GENERAL: Cooperative HEENT: Atraumatic; normocephalic EYES; Anicteric, Normal Conjunctiva NECK; supple, normal thyroid, RESPIRATORY: Diminished to auscultation CARDIOVASCULAR: Irregular S1 S2, GI: soft, normoactive bowel sounds, : No Renal angle tenderness; EXTREMITIES: No edema, no clubbing, MUSCULOSKELETAL: Left upper extremity immobilized NEURO: Awake; no lateralizing signs. SKIN: Pacemaker site CDI PSYCH; Flat affect Weight / BMI Weight Weight: 75.2 kg Body Mass Index (BMI) 26.7 ABG / Lab / Microbiology Data 04/10/25 05:25 04/10/25 05:25 Laboratory: Laboratory Results - last 24 hr 04/09/25 20:51: POC Glucose 316 H 04/10/25 05:25: WBC 9.0, RBC 3.24 L, Hgb 8.7 L, Hct 28.2 L, MCV 87.0, MCH 26.9 L, MCHC 30.9 L, RDW Std Deviation 53.5 H, RDW Coeff of Reggie 17.1 H, Plt Count 208,MPV 10.0, Immature Gran % (Auto) 0.900, Neut % (Auto) 91.6 H, Lymph % (Auto) 1.9L, [place] % (Auto) 5.5, Eos % (Auto) 0.0, Baso % (Auto) 0.1, Absolute Neuts (auto)8.2 H, Absolute Lymphs (auto) 0.17 L, Nucleated RBC % 0.2, Sodium 137, Potassium4.1, Chloride 92 L, Carbon Dioxide 32.1 H, Anion Gap 12, BUN 76 H, Creatinine 1.71 H, Estim Creat Clear Calc 31.09 L, Est GFR (MDRD) Non-Af 40 L, BUN/Creatinine Ratio 44.4 H, Glucose 244 H, Calcium 8.4, Lactate Dehydrogenase 179 04/10/25 06:16: POC Glucose 236 H 04/10/25 10:30: PT 16.7 H, INR 1.3, APTT 29.5 04/10/25 11:59: POC Glucose 346 H Microbiology: Microbiology 04/06/25 06:47 Mucosa - Nasopharyngeal Respiratory Panel (PCR) - Final 04/05/25 17:05 Mucosa - Nose SARS-CoV-2, Influenza & RSV (PCR) - Final Radiography Diagnostic Testing: Radiology Impression Chest X-Ray 04/09/25 19:57 IMPRESSION: Bilateral pulmonary densities and pleural effusions consistent with CHF. Reading Location: [facility] Chest CT 04/10/25 07:49 IMPRESSION: Coronary artery calcification (CAC) is is present Moderate right pleural effusion with compressive atelectasis in the right lower lobe as well as airspace disease in the right upper lobe with volume loss. Small left pleural effusion with left basilar atelectasis. Findings suggestive of CHF. Reading Location: [facility] Thoracentesis Ultrasound 04/10/25 09:12 IMPRESSION: Successful diagnostic and therapeutic ultrasound-guided right thoracentesis. Laboratory results pending. Reading Location: [place] [address] D/C Instructions Call your doctor if you observe: Fever of 101 or Higher, Shortness of breath, Fainting spells and Chest pain DC O2, CPAP, BIPAP Needs Home O2 Discharge instructions: Yes Type of respiratory needs?: Oxygen Oxygen frequency: At rest (2) and With Ambulation Oxygen liters per minute during Ambulation: 3 DC home with Oxygen: Yes Home O2 MD Review: I have reviewed the oxygen testing, and the patient qualifies for home oxygen equipment and portability. The patient is mobile in the home and the community. Meaningful Use Info Meaningful Use Meaningful Use Diagnoses (Choose all that apply): CHF CHF MAUREEN/ARB ordered at discharge?: No Reason MAUREEN/ARB not ordered?: Worsening renal function Documented LVEF (%): 55 Discharge Plan Admission Admit Date/Time: 04/05/25 19:55 Attending Provider: Nicola Roman Primary Care Provider: Tonio Fajardo Consulting Providers: Davon Saravia; Nicola Lindsey; Deric Lantigua; Issa Looney Discharge Orders/Prescriptions Prescriptions: New prednisone 20 mg tablet 20 mg PO BID Qty: 10 0RF cefdinir 300 mg capsule 300 mg PO BID Qty: 10 0RF guaifenesin [Mucinex] 600 mg tablet extended release 12hr 1,200 mg PO BID Qty: 20 0RF furosemide [Lasix] 40 mg tablet 40 mg PO DAILY Qty: 60 0RF Continued multivitamin [Daily Multi-Vitamin] Tablet 1 tab [...] glargine 100 UNIT/ML solution 30 unit SQ QHS Januvia 50 mg Tablet 50 mg PO DAILY Eliquis 5 mg Tablet 2.5 mg PO BID 30 Days Qty: 30 3RF guaifenesin 1,200 mg tablet extended release 12hr 1,200 mg PO Q12H 7 Days Qty: 14 6RF tamsulosin 0.4 mg Capsule 0.4 mg PO DAILY@1730 30 Days Qty: 30 2RF clopidogrel 75 mg tablet 75 mg PO DAILY insulin glargine [Lantus Solostar U-100 Insulin] 100 unit/mL (3 mL) insulin pen subcut metoprolol succinate 25 mg tablet extended release 24 hr 12.5 mg PO BID Qty: 90 3RF Discontinued diltiazem HCl 120 mg Capsule,Extended Release 24hr 120 mg PO DAILY 30 Days Qty: 30 2RF No Action (DME) OXYGEN - Supplemental ([facility] INFORMATIONAL USE ONLY) Gas See Rx Instructions .ROUTE Patient Comments: 2 lpm at rest, 3 lpm on exertion, 2 lpm at HS DME company: [employer] CM Rx Instructions: As directed Referrals / Follow Up: Carol Sousa [Registered Nurse] - 04/21/25 10:00 am ( FOLLOW UP PACER AND WOUNDCHECK ) Tonio Fajardo DO [Primary Care Provider] - Within 1 Week Disposition Disposition (needs filled in before D/C Order can be placed): Home, Self Care Charges/Coding Visit Charges Inpatient E&M: 49839 Disch Hosp >30min 04/10/25 1623 <Electronically signed by Nicola Roman MD> Cosigner Signature (if applicable): CC: Dr. Nicola Roman MD; Dr. Tonio Fajardo DO~ Signed [facility] Work Phone: 1(620) 311-942008-22-2025 [facility]08-22-[address] [facility]08-22-2025 Hospital Discharge instructionsAdditional Instructions Date of Discharge: 04/10/25[facility] Work Phone: 1(613) 405-831708-22-2025 Progress note Author Nicola Roman [facility] Note Date/Time April 10, 2025 9: 18am [facility] Medical Records Department [address] [place] [address] Progress Note - Hospitalist 04/10/25 0750 MR#: [id number] Acct: [id number] Name: PEDRO HILLMAN Rep #:[id number] : 1945 80 From: Nicola Roman MD PCP: Dr. Tonio Fajardo DO Status:ADM IN Location: [place] [address] Reason for Visit Chief Complaint: SOB, Cough and Hypotension. Subjective Subjective Patient seen dyspneic at rest. Patient underwent pacemaker placement on 04/09/2025 on account of tachybradycardia syndrome. Checks x-ray obtained subsequently did not demonstrate any pneumothorax. However did order CT of the chest given patient being dyspneic at rest which demonstrated right moderate pleural effusion. Requisition was placed for patient to undergo ultrasound guided thoracocentesis with accompanying diagnostic studies Objective Data Objective Data Vital Signs: Vital Signs Temp Pulse Resp BP Pulse Ox O2 Del Method O2 Flow Rate 97.8 F 108 H 20 H 131/80 H 100 Nasal Cannula 2 04/10/25 03:00 04/10/25 03:00 04/10/25 03:00 04/10/25 03:00 04/10/25 03:20 04/10/25 03:20 04/10/25 03:20 FiO2 35 04/07/25 00:00 Oxygen Flow Rate (L/min) 2 Oxygen Delivery Method Nasal Cannula Weight: 75.2 kg Body Mass Index (BMI) 26.7 Intake & Output: Intake and Output for Last 24 Hours 04/08/25 04/09/25 04/10/25 23:59 23:59 23:59 Intake Total 1100 / 1100 313.42 / 313.42 Output Total 1600 / 1600 350 / 350 Balance -500 / -500 -36.58 / -36.58 Lab / Micro Data 04/10/25 05:25 04/10/25 05:25 Labs: Laboratory Results - last 24 hr 04/09/25 20:51: POC Glucose 316 H 04/10/25 05:25: WBC 9.0, RBC 3.24 L, Hgb 8.7 L, Hct 28.2 L, MCV 87.0, MCH 26.9 L, MCHC 30.9 L, RDW Std Deviation 53.5 H, RDW Coeff of Reggie 17.1 H, Plt Count 208,MPV 10.0, Immature Gran % (Auto) 0.900, Neut % (Auto) 91.6 H, Lymph % (Auto) 1.9L, [place] % (Auto) 5.5, Eos % (Auto) 0.0, Baso % (Auto) 0.1, Absolute Neuts (auto)8.2 H, Absolute Lymphs (auto) 0.17 L, Nucleated RBC % 0.2, Sodium 137, Potassium4.1, Chloride 92 L, Carbon Dioxide 32.1 H, Anion Gap 12, BUN 76 H, Creatinine 1.71 H, Estim Creat Clear Calc 31.09 L, Est GFR (MDRD) Non-Af 40 L, BUN/Creatinine Ratio 44.4 H, Glucose 244 H, Calcium 8.4 04/10/25 06:16: POC Glucose 236 H Micro: Microbiology 04/06/25 06:47 Mucosa - Nasopharyngeal Respiratory Panel (PCR) - Final 04/05/25 17:05 Mucosa - Nose SARS-CoV-2, Influenza & RSV (PCR) - Final Radiography Diagnostic Testing: Radiology Impression Chest X-Ray 04/09/25 19:57 IMPRESSION: Bilateral pulmonary densities and pleural effusions consistent with CHF. Reading Location: [facility] Physical Exam Narrative S GENERAL: dyspneic at rest HEENT: Atraumatic; normocephalic EYES; Anicteric, Normal Conjunctiva NECK; supple, normal thyroid, RESPIRATORY: Diminished to auscultation CARDIOVASCULAR: Irregular S1 S2, GI: soft, normoactive bowel sounds, : No Renal angle tenderness; EXTREMITIES: No edema, no clubbing, MUSCULOSKELETAL: Left upper extremity immobilized NEURO: Awake; no lateralizing signs. SKIN: Pacemaker site CDI PSYCH; Flat affect Assessment & Plan Assessment/Plan (1) Acute on chronic diastolic congestive heart failure: PLAN: Plan Patient is an 80-year-old gentleman with multiple comorbidities including chronic congestive heart failure with preserved ejection fraction, chronic kidney disease stage IV who presented with progressive shortness of breath. Imaging studies demonstrated features consistent with pulmonary vascular congestion and assessment of acute congestive heart failure admitted admitted tomonitored bed for further management 1. Acute on chronic congestive heart failure with preserved ejection fraction ? Echo from 03/05/2025 demonstrated EF of 55% with PASP of 42 mmHg. Patient admitted to monitored bed manage with strict input and output, fluid restriction, daily weights as well as diuretic therapy with furosemide ? Patient continues to diurese well plan is for patient to be assessed for discharge ? 04/09/2025; patient discharged the day prior was placed on hold after he experienced a long pause. ? 04/10/2025; patient diuretic therapy restarted 2. Tachybradycardia syndrome Plan was for patient to be discharged home however discharge was discontinued after patient complained of feeling lightheaded. Systolic blood pressure was inthe high 90s. Telemetry did demonstrate significant sinus pauses. Patient is on Cardizem as well as beta-blockers both held consult placed to cardiology for tachybradycardia syndrome. Plan for patient to undergo pacemaker placement on 04/09/2025 ? 04/10/2025; patient underwent pacemaker placement by Dr. Looney on 04/09/2025 3. 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 Plan is for patient to be assessed for home oxygen prior to discharge. Patient current setting is 3 L with activity and 2 L at baseline. Patient daughter had asked for palliative care consultation the day prior consult was placed ? 04/09/2025; patient requested for her scheduled bronchodilator treatment to be changed to as needed ? 04/10/2025; with patient being significantly dyspneic at rest decision was madeto order CT of the chest which demonstrated moderate right pleural effusion withcompressive atelectasis 4. Moderate right-sided pleural effusion ? CT of the chest ordered as part of his eval did show Moderate right pleural effusion with compressive atelectasis in the right lower lobe as well as airspace disease in the right upper lobe with volume loss. Small left pleural effusion with left basilar atelectasis. Findings suggestive of CHF. - An order was given for patient to undergo ultrasound-guided thoracocentesis patient is on apixaban which had been held for his pacemaker placement. Use of incentive spirometry also ordered. Did order serum LDH body fluid LDH, Protein culture as well as cytology given patient previous history of lung malignancy 4. Hyperkalemia ? Present on admission potassium level was 5.8. Treated per protocol potassium as of 04/07/2025 is 4.6 5. DARIUSZ superimposed chronic kidney disease stage IV ? Patient kidney function at baseline. Patient being followed by nephrology ? 04/08/2025 patient creatinine down to 1.91 6. Coronary artery disease ? With previous CABG; patient is on guideline directed medical therapy 7. History of non-small cell lung CA involving the right upper lobe ? Patient was treated with radiation therapy currently followed by [facility] oncology and will start 8. Chronic persistent A-fib ? Rate controlled on systemic anticoagulation with apixaban 9. Hypertension ? Blood pressure controlled, home medications continued with dose adjustment as needed 10. Diabetes mellitus type 2 ? Patient was on long-acting insulin with glargine 30 units at bedtime home discontinued also placed on Accu-Cheks AC and at bedtime with sliding scale coverage 11. BPH with lower urinary obstructive symptoms - Patient treated with tamsulosin 12. COPD ? Currently not in exacerbation did continue patient bronchodilator as well as inhaled corticosteroid treatment regimen 13. Dyslipidemia ?Patient is on statin therapy, continued at home dose 14. Chronic degenerative arthritis - Tylenol as needed 15. Peripheral artery disease -with history of left lower extremity ulcer status post aortofemoral bypass graft in 2010 and chronic venous insufficiency. 16 . Anemia ? Secondary to chronic disorder monitoring H&H and transfuse if patient becomes symptomatic or hemoglobin falls below 7 17. DVT prophylaxis ? Patient is on apixaban Time spent in the patient's overall evaluation,decision-making process, review of diagnostic data, adjustment of management, discussion with other providers, nursing nursing and ancillary staff involved in patient's care documentation, 52 Minutes Charges/Coding Visit Charges Inpatient E&M: 13767 Subs Hosp L3 04/10/25 0918 <Electronically signed by Nicola Roman MD> Cosigner Signature (if applicable): CC: ~ Signed [facility] Work Phone: 1(450) 562-382108-22-[address] [facility]08-21-[address] [facility]08-21-[address] [facility]08-21-2025 Progress note Author Nicola Roman [facility] Note Date/Time April 09, 2025 11 :31am [facility] Medical Records Department [address] [place] [address] Progress Note - Hospitalist 04/09/255 MR#: [id number] Acct: [id number] Name: PEDRO HILLMAN Rep #:[id number] : 1945 80 From: Nicola Roman MD PCP: Dr. Tonio Fajardo, DO Status:ADM IN Location: [place] [address] Reason for Visit Chief Complaint: SOB, Cough and Hypotension. Subjective Subjective Plan was for patient to be discharged home however discharge was discontinued after patient complained of feeling lightheaded. Systolic blood pressure was inthe high 90s. Telemetry did demonstrate significant sinus pauses. Patient is on Cardizem as well as beta-blockers both held consult placed to cardiology for tachybradycardia syndrome. Case discussed with Dr. Looney plans to undergo pacemaker placement Objective Data Objective Data Vital Signs: Vital Signs Temp Pulse Resp BP Pulse Ox O2 Del Method O2 Flow Rate 98.0 F 86 17 99/60 100 Nasal Cannula 2 04/09/25 08:00 04/09/25 11:00 04/09/25 08:00 04/09/25 11:00 04/09/25 08:00 04/09/25 07:30 04/09/25 08:00 FiO2 35 04/07/25 00:00 Oxygen Flow Rate (L/min) 2 Oxygen Delivery Method Nasal Cannula Weight: 74.9 kg Body Mass Index (BMI) 26.6 Intake & Output: Intake and Output for Last 24 Hours 04/07/25 04/08/25 04/09/25 23:59 23:59 23:59 Intake Total 250 / 250 1100 / 1100 22.25 / 22.25 Output Total 2200 / 2200 1600 / 1600 350 / 350 Balance -1950 / -1950 -500 / -500 -327.75 / -327.75 Lab / Micro Data 04/09/25 04:41 04/09/25 04:41 Labs: Laboratory Results - last 24 hr 04/08/25 13:01: POC Glucose 270 H 04/08/25 17:04: POC Glucose 216 H 04/08/25 22:42: POC Glucose 273 H 04/09/25 04:41: WBC 6.9, RBC 3.18 L, Hgb 8.6 L, Hct 27.7 L, MCV 87.1, MCH 27.0, MCHC 31.0 L, RDW Std Deviation 53.1 H, RDW Coeff of Reggie 16.9 H, Plt Count 203, MPV 10.1, Immature Gran % (Auto) 0.600, Neut % (Auto) 91.8 H, Lymph % (Auto) 2.8L, [place] % (Auto) 4.7, Eos % (Auto) 0.0, Baso % (Auto) 0.1, Absolute Neuts (auto)6.3, Absolute Lymphs (auto) 0.19 L, Nucleated RBC % 0.3, Sodium 135, Potassium 3.9, Chloride 92 L, Carbon Dioxide 31.9, Anion Gap 12, BUN 74 H, Creatinine 1.95H, Estim Creat Clear Calc 27.26 L, Est GFR (MDRD) Non-Af 34 L, BUN/Creatinine Ratio 37.7 H, Glucose 232 H, Calcium 8.4, Phosphorus 3.9, Magnesium 2.2 04/09/25 06:37: POC Glucose 209 H Micro: Microbiology 04/06/25 06:47 Mucosa - Nasopharyngeal Respiratory Panel (PCR) - Final 04/05/25 17:05 Mucosa - Nose SARS-CoV-2, Influenza & RSV (PCR) - Final Physical Exam Narrative S GENERAL: cooperative, dyspneic at rest HEENT: Atraumatic; normocephalic EYES; Anicteric, Normal Conjunctiva NECK; supple, normal thyroid, RESPIRATORY: Diminished to auscultation CARDIOVASCULAR: Irregular S1 S2, GI: soft, normoactive bowel sounds, : No Renal angle tenderness; EXTREMITIES: No edema, no clubbing, MUSCULOSKELETAL: no muscle wasting NEURO: Awake; no lateralizing signs. SKIN: No Rash PSYCH; Flat affect Const Constitutional Narrative: Patient has chronically ill but nontoxic appearance. Resp Resp Narrative: Diminished breath sounds throughout. Skin Skin Narrative: Patient has evidence of rash, abscess, wounds or jaundice. Assessment & Plan Assessment/Plan (1) Acute on chronic diastolic congestive heart failure: PLAN: Plan Patient is an 80-year-old gentleman with multiple comorbidities including chronic congestive heart failure with preserved ejection fraction, chronic kidney disease stage IV who presented with progressive shortness of breath. Imaging studies demonstrated features consistent with pulmonary vascular congestion and assessment of acute congestive heart failure admitted admitted tomonitored bed for further management 1. Acute on chronic congestive heart failure with preserved ejection fraction ? Echo from 03/05/2025 demonstrated EF of 55% with PASP of 42 mmHg. Patient admitted to monitored bed manage with strict input and output, fluid restriction, daily weights as well as diuretic therapy with furosemide ? Patient continues to diurese well plan is for patient to be assessed for discharge ? 04/09/2025; patient discharged the day prior was placed on hold after he experienced a long pause. 2. 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 Plan is for patient to be assessed for home oxygen prior to discharge. Patient current setting is 3 L with activity and 2 L at baseline. Patient daughter had asked for palliative care consultation the day prior consult was placed ? 04/09/2025; patient requested for her scheduled bronchodilator treatment to be changed to as needed 3. Hyperkalemia ? Present on admission potassium level was 5.8. Treated per protocol potassium as of 04/07/2025 is 4.6 4. DARIUSZ superimposed chronic kidney disease stage IV ? Patient kidney function at baseline. Patient being followed by nephrology ? 04/08/2025 patient creatinine down to 1.91 5. Tachybradycardia syndrome Plan was for patient to be discharged home however discharge was discontinued after patient complained of feeling lightheaded. Systolic blood pressure was inthe high 90s. Telemetry did demonstrate significant sinus pauses. Patient is on Cardizem as well as beta-blockers both held consult placed to cardiology for tachybradycardia syndrome. Plan for patient to undergo pacemaker placement on 04/09/2025 6. Coronary artery disease ? With previous CABG; patient is on guideline directed medical therapy 7. History of non-small cell lung CA involving the right upper lobe ? Patient was treated with radiation therapy currently followed by [facility] oncology and will start 8. Chronic persistent A-fib ? Rate controlled on systemic anticoagulation with apixaban 9. Hypertension ? Blood pressure controlled, home medications continued with dose adjustment as needed 10. Diabetes mellitus type 2 ? Patient was on long-acting insulin with glargine 30 units at bedtime home discontinued also placed on Accu-Cheks AC and at bedtime with sliding scale coverage 11. BPH with lower urinary obstructive symptoms - Patient treated with tamsulosin 12. COPD ? Currently not in exacerbation did continue patient bronchodilator as well as inhaled corticosteroid treatment regimen 13. Dyslipidemia ?Patient is on statin therapy, continued at home dose 14. Chronic degenerative arthritis - Tylenol as needed 15. Peripheral artery disease -with history of left lower extremity ulcer status post aortofemoral bypass graft in 2009 and chronic venous insufficiency. 16 . Anemia ? Secondary to chronic disorder monitoring H&H and transfuse if patient becomes symptomatic or hemoglobin falls below 7 17. DVT prophylaxis ? Patient is on apixaban Time spent in the patient's overall evaluation,decision-making process, review of diagnostic data, adjustment of management, discussion with other providers, nursing nursing and ancillary staff involved in patient's care documentation, 50 Minutes Charges/Coding Visit Charges Inpatient E&M: 88876 Subs Hosp 04/09/25 1131 <Electronically signed by Nicola Roman MD> Cosigner Signature (if applicable): CC: ~ Signed [facility] Work Phone: 1(222) 980-551308-20-2025 Consult note Author Issa Looney [facility] Note Date/Time April 08, 2025 7: 12pm [facility] Medical Records Department [address] [place] [address] Consultation - Cardiology 04/08/25 1906 MR#: [id number] Acct: [id number] Name: PEDRO HILLMAN Rep #:[id number] : 1945 80 From: Issa Looney MD PCP: Dr. Tonio Fajardo, DO Status:ADM IN Location: [facility]- 1 Assessment & Plan Assessment/Plan (1) Chronic atrial fibrillation: PLAN: He does have atrial fibrillation which appears to be persistent. He has tachybradycardia syndrome with difficulty in controlling his heart rate. He hasbeen on beta-josselyn and calcium channel ojsselyn. At this point with a high-grade pauses it may be prudent to pursue a permanent pacemaker implantation. His Eliquis needs to be held. He is on a small dose. I have discussed this with him and his family they understand and agree to proceed. (2) Coronary artery disease: QUALIFIERS: Coronary Disease-Associated Artery/Lesion type: nativeartery Hughes vs. transplanted heart: [place] heart Associated angina: without angina Qualified Code(s): I25.10 - Atherosclerotic heart disease of [place] coronary artery without angina pectoris PLAN: He does have known coronary artery disease but appears to be stable at this particular time with no angina the plan to be to continue him on the current medical therapy. (3) Heart block AV complete: PLAN: He did have a significant heart block with some residual medication on board and underlying atrial fibrillation. At this time it may be prudent to pursue permanent pacemaker implantation. A single or dual chamber may suffice. I do not think there are plans to cardiovert him at any point soon. * Will attempt to arrange this April 09 or * * Thank you for allowing me to participate in the care of your patient. Please don't hesitate to call if any issues arise. HPI Consult Data Date of Consult: 04/08/25 HPI Narrative HPI Narrative: PEDRO HILLMAN, is a 80 M who presents to the hospital with shortness of breath and was noted to have an elevated natruretic peptide level. He has a history ofhypertension hyperlipidemia diabetes mellitus peripheral vascular disease statuspost aortobifem bypass in 2009. He did have a history of coronary artery disease status post coronary bypass surgery with a left internal mammary artery to left anterior descending artery saphenous vein graft to the diagonal vessel and saphenous vein graft to the posterior descending artery. This was in 2012. His postop course was complicated by mediastinal hematoma and required reexploration and placement of intra-aortic balloon pump. He also has a historyof obstructive lung disease chronic renal failure and needed dialysis briefly. He also underwent a tracheostomy. That has all improved significantly. He is currently being treated for non-small cell lung carcinoma and underwent radiation therapy to the right lung and mediastinum from May to June of 2022. He was diagnosed with atrial fibrillation flutter and at some point he was advised to undergo pacemaker placement but he refused. He was on combination beta-josselyn and calcium channel josselyn and during this visit he was noted to have an elevated natruretic peptide level he was diuresed an echocardiogram performed in February 2025 demonstrated an ejection fraction of 55% moderate mitral regurgitation moderate tricuspid regurgitation and persistent atrial flutter for which she remained on the beta-josselyn and calcium channel josselyn. He was getting ready to be discharged today and had multiple lightheaded episodes and pauses over 8 seconds. Cardiology was called for further evaluation and management. His initial presenting EKG demonstrated whatappeared to be sinus tachycardia or junctional tachycardia. He has documented pauses over 8 seconds present. [facility] Medical History Peripheral arterial disease Other persistent atrial fibrillation New onset atrial flutter COVID Wears hearing aid in both ears Former smoker Coronary artery disease Peripheral vascular occlusive disease BPH (benign prostatic hyperplasia) Chronic kidney disease, stage 3 Atherosclerosis of coronary artery of [place] heart without angina pectoris Hyperlipidemia Lower extremity edema Venous insufficiency Malnutrition Delayed wound healing Osteomyelitis of ankle, left, acute Ulcer of left lower extremity with fat layer exposed Type 2 diabetes mellitus with diabetic polyneuropathy Anemia GERD (gastroesophageal reflux disease) Hypertension Home Medications ?Medication ?Instructions ?Recorded ?Last Taken ?Type insulin glargine 100 unit/mL 30 unit SQ QHS diabetes 0 11/19/19 03/03/25 History subcutaneous solution multivitamin (Daily [...] (Anoro Ellipta) apixaban 5 mg tablet (Eliquis) 2.5 mg (1/2 x 5 mg) PO BID blood 03/09/25 Unknown Rx thinner 30 days #30 tabs guaifenesin 1,200 mg tablet, 1,200 mg PO Q12H cough 7 days #14 03/09/25 Unknown Rx extended release 12 hr tabs tamsulosin 0.4 mg capsule 0.4 mg PO DAILY@1730 prostat e 30 03/09/25 Unknown Rx days #30 caps metoprolol succinate 25 mg 12.5 mg (1/2 x 25 mg) PO BI D blood 04/03/25 Unknown Rx tablet,extended release 24 hr thinner #90 tabs clopidogrel 75 mg tablet 75 mg PO DAILY anti platelet 04/05/25 Unknown History insulin glargine 100 unit/mL (3 unit subcut 04/05/25 U nknown History mL) subcutaneous pen (Lantus Solostar U-100 Insulin) cefdinir 300 mg capsule 300 mg PO BID #10 caps 04/08 Unknown Rx furosemide 40 mg tablet (Lasix) 40 mg PO DAILY #60 tab s 04/08/25 Unknown Rx guaifenesin 600 mg tablet, 1,200 mg (2 x 600 mg) PO BI D #20 04/08/25 Unknown Rx extended release 12 hr (Mucinex) tabs prednisone 20 mg tablet 20 mg PO BID #10 tabs Unknown Rx Allergy/AdvReac Type Severity Reaction Status Date / Time ibuprofen Allergy Severe Facial Verified 04/05/25 16:44 swelling (angioedema) Family History Brother Diabetes Father [...] did patient quit smokin years Physical Exam Const alert, oriented x3 and no apparent distress General Appearance: cooperative HEENT hearing grossly normal bilaterally Head and Scalp: atraumatic Eyes EOMs intact bilaterally Neck General: normal visual inspection Chest inspection of chest normal and palpation of chest normal Resp normal respiratory effort Auscultation: clear to auscultation bilaterally Cardio S1 normal heart sound and S2 normal heart sound Jugular Venous Distention: JVD Rhythm: abnormal rhythm irregularly irregular GI normal to inspection, nondistended, normoactive bowel sounds Extremity normal capillary refill and no pedal edema Peripheral Pulses: Yes pulses 2+ throughout and femoral pulses present Skin no rashes or lesions noted Neuro oriented x3 and CN's II-XII intact bilaterally Psych Appearance: grossly normal and appropriate Objective Data Vital Signs: Vital Signs Temp Pulse Resp BP Pulse Ox O2 Del Method O2 Flow Rate 97.5 F L 88 18 122/75 H 95 Nasal Cannula 2 04/08/25 17:20 04/08/25 17:20 04/08/25 17:20 04/08/25 17:20 04/08/25 17:20 04/08/25 17:20 04/08/25 17:20 FiO2 35 04/07/25 00:00 Oxygen Flow Rate (L/min) 2 Oxygen Delivery Method Nasal Cannula Weight: 160 lb 14.999 oz Body Mass Index (BMI) 25.9 Intake & Output: Intake and Output for Last 24 Hours 04/06/25 04/07/25 04/08/25 23:59 23:59 23:59 Intake Total 1680 / 1680 250 / 250 600 / 600 Output Total 2500 / 2500 2200 / 2200 600 / 600 Balance -820 / -820 -1950 / -1950 0 / 0 Lab / Micro Data 04/08/25 05:13 04/08/25 05:13 Labs: Laboratory Results - last 24 hr 04/07/25 16:11: POC Glucose 272 H 04/07/25 21:06: POC Glucose 249 H 04/08/25 05:13: WBC 6.9, RBC 3.09 L, Hgb 8.3 L, Hct 27.0 L, MCV 87.4, MCH 26.9 L, MCHC 30.7 L, RDW Std Deviation 54.2 H, RDW Coeff of Reggie 17.2 H, Plt Count 192,MPV 10.7, Immature Gran % (Auto) 0.600, Neut % (Auto) 91.4 H, Lymph % (Auto) 3.5L, [place] % (Auto) 4.5, Eos % (Auto) 0.0, Baso % (Auto) 0.0, Absolute Neuts (auto)6.3, Absolute Lymphs (auto) 0.24 L, Nucleated RBC % 0, Sodium 138, Potassium 4.0, Chloride 95 L, Carbon Dioxide 32.0, Anion Gap 11, BUN 65 H, Creatinine 1.91H, Estim Creat Clear Calc 27.84 L, Est GFR (MDRD) Non-Af 35 L, BUN/Creatinine Ratio 33.8 H, Glucose 240 H, Calcium 8.6 04/08/25 06:29: POC Glucose 199 H 04/08/25 13:01: POC Glucose 270 H 04/08/25 17:04: POC Glucose 216 H Cardiology Labs/Tests 04/08/25 05:13: WBC 6.9, RBC 3.09 L, Hgb 8.3 L, Hct 27.0 L, MCV 87.4, MCH 26.9 L, MCHC 30.7 L, Plt Count 192, MPV 10.7, Immature Gran % (Auto) 0.600, Neut % (Auto) 91.4 H, Lymph % (Auto) 3.5 L, [place] % (Auto) 4.5, Eos % (Auto) 0.0, Baso %(Auto) 0.0, Absolute Neuts (auto) 6.3, Nucleated RBC % 0, Sodium 138, Potassium 4.0, Chloride 95 L, Carbon Dioxide 32.0, Anion Gap 11, BUN 65 H, Creatinine 1.91H, Est GFR (MDRD) Non-Af 35 L, BUN/Creatinine Ratio 33.8 H, Glucose 240 H, Calcium 8.6 Rhythm: EKG: ECHO: Stress Test: Cardiac Cath: PCI: CT Surgery: Holter monitor: EPS: PPM: CXR: Chest CT Scan: AYDEN Risk Score for UA/STEMI Assesmment (YES = 1) Risk Stratification Applicable: No 04/08/251911 <Electronically signed by Issa Looney MD> Cosigner Signature (if applicable): CC: Dr. Tonio Fajardo, DO~ Signed [facility] Work Phone: 1(395) 296-117308-20-2025 Consult note Author Madeline Sarabia [facility] Note Date/Time April 08, 2025 6: 51pm [facility] Medical Records Department [address] [place] [address] Consultation - Nephrology 04/06/25 1153 MR#: [id number] Acct: [id number] Name: PEDRO HILLMAN Rep #:[id number] : 1945 80 From: Madeline shultz [employer] PCP: Dr. Tonio Fajardo DO Status:ADM IN Location: [place] [address] Assessment & Plan Assessment/Plan (1) DARIUSZ (acute kidney injury): (2) CKD (chronic kidney disease), stage IV: (3) Respiratory insufficiency: PLAN: Plan This is a pleasant 80-year-old male with past medical history significant for HFpEF, diabetes mellitus type 2, chronic kidney disease stage III/IV, coronary artery disease status post coronary artery bypass graft x 3 in 2012, chronic atrial fibrillation, history of COPD, history of NSCLC right lung followed by oncology currently on observation, chronic respiratory failure on home O2 3 L nasal cannula continuous who presented to the emergency room with complaints of shortness of breath, hypotension, admitted for respiratory insufficiency secondary to acute exacerbation chronic diastolic heart failure, COPD, and possible pneumonia. Nephrology consulted in view of elevated creatinine. Patient has known history of chronic kidney disease secondary diabetic nephropathy and residual damage of kidney from prior ATN after [place]G at [place] March2013 (patient required hemodialysis for short period of time). Patient had beenseen in our office, last seen in April 2021, at that time baseline creatinine ranging around 1.5 to 1.9 mg/dL. There does seem to be some progression of CKD since last seen in April 2021. Possible new baseline creatinine ranging around 1.9 to 2.2 mg/dL however patient does have some fluctuations in serum creatinine. Today his creatinine is 2.52. Potassium was 5.8 yesterday (he received hyperkalemia lowering medications in ER), K+ now 4.7. Bicarb normal. Patient has been started on Lasix 40 mg IV twice daily. Recommend continue with diuretics and will monitor kidney function closely. At this time there is no acute indication for renal placement therapy. Patient hasknown history of congestive heart failure, last echo February 2025: EF 55%, stage I diastolic dysfunction, moderate concentric left ventricular hypertrophy. Continue with diuresis. Patient states was not taking diuretic at home. Patient also on IV steroids and breathing treatments. We will obtain renal US. UA + bacteria and protein. Will check UPCR. Further orders forthcoming as hospitalization evolves, thank you for allowing us to participate in the care ofMr. Hillman. Assessment and plan reviewed with Dr. Saravia. HPI Consult Data Date of Consult: 04/06/25 HPI Narrative HPI Narrative: PEDRO HILLMAN, is a 80 M with past medical history significant for diabetes mellitus type 2, chronic kidney disease stage III/IV, diabetic nephropathy, coronary artery disease status post coronary artery bypass graft x 3 in 2012, chronic atrial fibrillation, history of COPD, history of NSCLC right lung followed by oncology currently on observation, chronic respiratory failure on home O2 3 L nasal cannula continuous who presented to the emergency room with complaints of cough and shortness of breath. Patient reports shortness of breath had worsened over the weekend therefore he summoned EMS. In emergency room blood pressure 100/85, oxygen saturation 88% on O2 4 L, BNP 4000, chest x-ray CHF with moderate right pleural effusion, small left pleural effusion, pulmonary edema with underlying infectious/inflammatory process. Patient was admitted for further evaluation and treatment. Nephrology consulted in view of elevated creatinine. Patient reports he had followed with nephrology in past but it has not seen nephrology for a few years. He he was last seen in our [place] office in April 2021. CKD is secondary to diabetic nephropathy and residual damage of kidney from prior ATN after CABG at [place] March 2013 (patient required hemodialysis for short period of time). Baseline creatinine April 2021 was around 1.5 to 1.9 mg/dL. Yesterday in the emergency room creatinine 2.57, today his creatinine is 2.52 mg/dL. Patient denies any recent nausea, vomiting or diarrhea. He does state since feeling unwell appetite has been poor. No NSAIDs. Denies any hematuria, dysuria, frequency, nocturia. [facility] Medical History Peripheral arterial disease Other persistent atrial fibrillation New onset atrial flutter [place] Wears hearing aid in both ears Former smoker Coronary artery disease Peripheral vascular occlusive disease BPH (benign prostatic hyperplasia) Chronic kidney disease, stage 3 Atherosclerosis of coronary artery of [place] heart without angina pectoris Hyperlipidemia Lower extremity edema Venous insufficiency Malnutrition Delayed wound healing Osteomyelitis of ankle, left, acute Ulcer of left lower extremity with fat layer exposed Type 2 diabetes mellitus with diabetic polyneuropathy Anemia GERD (gastroesophageal reflux disease) Hypertension Home Medications ?Medication ?Instructions ?Recorded ?Last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 100 UNIT/ML solution 30 unit SQ QHS Januvia 50 mg Tablet 50 mg PO DAILY Eliquis 5 mg Tablet 2.5 mg PO BID 30 Days Qty: 30 3RF guaifenesin 1,200 mg tablet extended release 12hr 1,200 mg PO Q12H 7 Days Qty: 14 6RF tamsulosin 0.4 mg Capsule 0.4 mg PO DAILY@1730 30 Days Qty: 30 2RF clopidogrel 75 mg tablet 75 mg PO DAILY insulin glargine [Lantus Solostar U-100 Insulin] 100 unit/mL (3 mL) insulin pen subcut metoprolol succinate 25 mg tablet extended release 24 hr 12.5 mg PO BID Qty: 90 3RF Discontinued diltiazem HCl 120 mg Capsule,Extended Release 24hr 120 mg PO DAILY 30 Days Qty: 30 2RF Referrals / Follow Up: Tonio Fajardo DO [Primary Care Provider] - Within 1 Week Disposition Disposition (needs filled in before D/C Order can be placed): Home, Self Care Charges/Coding Visit Charges Inpatient E&M: 11044 Disch Hosp >30min 04/08/25 1345 <Electronically signed by Nicola Roman MD> Cosigner Signature (if applicable): CC: Dr. Nicola Roman MD; Dr. Tonio Fajardo DO~ Signed [facility] Work Phone: 1(889) 724-312008-20-2025 [facility]08-19-2025 Progress note Author Nicola Roman [facility] Note Date/Time April 07, 2025 11 :26am [facility] Medical Records Department [address] [place] [address] Progress Note - Hospitalist 04/07/25 1113 MR#: [id number] Acct: [id number] Name: PEDRO HILLMAN Rep #:[id number] : 1945 80 From: Nicola Roman MD PCP: Dr. Tonio Fajardo DO Status:ADM IN Location: [place] [address] Reason for Visit Chief Complaint: SOB, Cough and Hypotension. Subjective Subjective Patient is an 80-year-old gentleman with multiple comorbidities including chronic congestive heart failure with preserved ejection fraction, chronic kidney disease stage IV who presented with progressive shortness of breath. Imaging studies demonstrated features consistent with pulmonary vascular congestion and assessment of acute congestive heart failure admitted admitted tomonitored bed for further management Objective Data Objective Data Vital Signs: Vital Signs Temp Pulse Resp BP Pulse Ox O2 Del Method O2 Flow Rate 97.4 F L 105 H 16 127/64 H 100 Nasal Cannula 3 04/07/25 09:00 04/07/25 10:39 04/07/25 10:39 04/07/25 09:00 04/07/25 09:00 04/07/25 09:36 04/07/25 09:36 FiO2 35 04/07/25 00:00 Oxygen Flow Rate (L/min) 3 Oxygen Delivery Method Nasal Cannula Weight: 72.2 kg Body Mass Index (BMI) 25.7 Intake & Output: Intake and Output for Last 24 Hours 04/05/25 04/06/25 04/07/25 23:59 23:59 23:59 Intake Total 300 / 300 1680 / 1680 Output Total 2500 / 2500 300 / 300 Balance 300 / 300 -820 / -820 -300 / -300 Lab / Micro Data 04/07/25 05:25 04/07/25 05:25 Labs: Laboratory Results - last 24 hr 04/06/25 11:56: POC Glucose 140 H 04/06/25 16:26: POC Glucose 168 H 04/06/25 20:39: POC Glucose 378 H 04/06/25 21:00: U Random Total Protein 53.3 H, Urine Creatinine 32.10 L, Protein/Creatinin Ratio 1660 H 04/07/25 05:25: WBC 6.4, RBC 2.96 L, Hgb 8.0 L, Hct 25.6 L, MCV 86.5, MCH 27.0, MCHC 31.3 L, RDW Std Deviation 53.1 H, RDW Coeff of Reggie 17.1 H, Plt Count 189, MPV 10.4, Immature Gran % (Auto) 1.400 H, Neut % (Auto) 92.8 H, Lymph % (Auto) 3.1 L, [place] % (Auto) 2.5, Eos % (Auto) 0.0, Baso % (Auto) 0.2, Absolute Neuts (auto) 5.9, Absolute Lymphs (auto) 0.20 L, Nucleated RBC % 0, Sodium 137, Potassium 4.6, Chloride 96 L, Carbon Dioxide 29.8, Anion Gap 11, BUN 58 H, Creatinine 2.21 H, Estim Creat Clear Calc 24.06 L, Est GFR (MDRD) Non-Af 29 L, BUN/Creatinine Ratio 26.3 H, Glucose 171 H, Calcium 8.8, Phosphorus 4.6 H 04/07/25 06:16: POC Glucose 162 H Micro: Microbiology 04/06/25 06:47 Mucosa - Nasopharyngeal Respiratory Panel (PCR) - Final 04/05/25 17:05 Mucosa - Nose SARS-CoV-2, Influenza & RSV (PCR) - Final Radiography Diagnostic Testing: Radiology Impression Renal Ultrasound 04/06/25 12:19 IMPRESSION: NORMAL RENAL ULTRASOUND. Reading Location: [facility] Physical Exam Narrative S GENERAL: cooperative, dyspneic at rest HEENT: Atraumatic; normocephalic EYES; Anicteric, Normal Conjunctiva NECK; supple, normal thyroid, RESPIRATORY: Diminished to auscultation CARDIOVASCULAR: Irregular S1 S2, GI: soft, normoactive bowel sounds, : No Renal angle tenderness; EXTREMITIES: No edema, no clubbing, MUSCULOSKELETAL: no muscle wasting NEURO: Awake; no lateralizing signs. SKIN: No Rash PSYCH; Flat affect Assessment & Plan Assessment/Plan (1) Acute on chronic diastolic congestive heart failure: PLAN: Plan Patient is an 80-year-old gentleman with multiple comorbidities including chronic congestive heart failure with preserved ejection fraction, chronic kidney disease stage IV who presented with progressive shortness of breath. Imaging studies demonstrated features consistent with pulmonary vascular congestion and assessment of acute congestive heart failure admitted admitted tomonitored bed for further management 1. Acute on chronic congestive heart failure with preserved ejection fraction ? Echo from 03/05/2025 demonstrated EF of 55% with PASP of 42 mmHg. Patient admitted to monitored bed manage with strict input and output, fluid restriction, daily weights as well as diuretic therapy with furosemide 2. Chronic hypoxic respiratory failure ? Patient is on baseline home oxygen 3 L 3. Hyperkalemia ? Present on admission potassium level was 5.8. Treated per protocol potassium as of 04/07/2025 is 4.6 4. DARIUSZ superimposed chronic kidney disease stage IV ? Patient kidney function at baseline. Patient being followed by nephrology 5. Coronary artery disease ? With previous CABG; patient is on guideline directed medical therapy 6. History of non-small cell lung CA involving the right upper lobe ? Patient was treated with radiation therapy currently followed by [facility] oncology and will start 7. Chronic persistent A-fib ? Rate controlled on systemic anticoagulation with apixaban 8. Hypertension ? Blood pressure controlled, home medications continued with dose adjustment as needed 9. Diabetes mellitus type 2 ? Patient was on long-acting insulin with glargine 30 units at bedtime home discontinued also placed on Accu-Cheks AC and at bedtime with sliding scale coverage 10. BPH with lower urinary obstructive symptoms - Patient treated with tamsulosin 11. Anemia ? Secondary to chronic disorder monitoring H&H and transfuse if patient becomes symptomatic or hemoglobin falls below 7 12. COPD ? Currently not in exacerbation did continue patient bronchodilator as well as inhaled corticosteroid treatment regimen 13. Dyslipidemia ?Patient is on statin therapy, continued at home dose 14. Chronic degenerative arthritis - Tylenol as needed 15. Peripheral artery disease -with history of left lower extremity ulcer status post aortofemoral bypass graft in 2009 and chronic venous insufficiency. 16 . DVT prophylaxis ? Patient is on apixaban Time spent in the patient's overall evaluation,decision-making process, review of diagnostic data, adjustment of management, discussion with other providers, nursing nursing and ancillary staff involved in patient's care documentation, 52 Minutes Charges/Coding Visit Charges Inpatient E&M: 99397 Subs Hosp L3 04/07/25 1126 <Electronically signed by Nicola Roman MD> Cosigner Signature (if applicable): CC: ~ Signed [facility] Work Phone: 1(263) 923-727208-18-2025 Progress note Author Deric Lantigua [facility] Note Date/Time April 06, 2025 4: 53pm [facility] Medical Records Department [address] [place] [address] Progress Note - Hospitalist 04/06/25 0837 MR#: [id number] Acct: [id number] Name: PEDRO HILLMAN Rep #:[id number] : 1945 80 From: Deric Smith PCP: Dr. Tonio Fajardo, DO Status:ADM IN Location: [place] [address] Reason for Visit Chief Complaint: SOB, Cough and Hypotension. Objective Data Objective Data Vital Signs: Vital Signs Temp Pulse Resp BP Pulse Ox O2 Del Method O2 Flow Rate 98.1 F 106 H 24 H 106/53 L 92 High Flow 8 04/06/25 03:00 04/06/25 06:10 04/06/25 06:10 04/06/25 03:00 04/06/25 06:10 04/06/25 06:10 04/06/25 06:10 Oxygen Flow Rate (L/min) 8 Oxygen Delivery Method High Flow Weight: 168 lb 13.985 oz Body Mass Index (BMI) 27.2 Intake & Output: Intake and Output for Last 24 Hours 04/04/25 04/05/25 04/06/25 23:59 23:59 23:59 Intake Total 300 / 300 50 / 50 Output Total 500 / 500 Balance 300 / 300 -450 / -450 Lab / Micro Data 04/06/25 04:58 04/06/25 04:58 Labs: Laboratory Results - last 24 hr 04/05/25 17:10: WBC 8.7, RBC 3.27 L, Hgb 8.9 L, Hct 29.0 L, MCV 88.7, MCH 27.2, MCHC 30.7 L, RDW Std Deviation 55.5 H, RDW Coeff of Reggie 17.1 H, Plt Count 226, MPV 11.1, Immature Gran % (Auto) 0.700, Neut % (Auto) 79.7 H, Lymph % (Auto) 7.3L, [place] % (Auto) 10.7 H, Eos % (Auto) 1.0, Baso % (Auto) 0.6, Absolute Neuts (auto) 7.0, Absolute Lymphs (auto) 0.64 L, Nucleated RBC % 0.2, Sodium 134, Potassium 5.8 H, Chloride 97 L, Carbon Dioxide 26.7, Anion Gap 11, BUN 60 H, Creatinine 2.57 H, Estim Creat Clear Calc 22.62 L, Est GFR (MDRD) Non-Af 25 L, BUN/Creatinine Ratio 23.2 H, Glucose 164 H, Calcium 8.8, Troponin T High Sens 64 H* D, NT pro BNP II 4003 H 04/05/25 17:50: POC Glucose 147 H 04/05/25 19:10: Magnesium 2.5 H, Troponin T Hi Sens 2 Hr 62 H*, TSH 3.830 04/05/25 20:59: Troponin T Hi Sens 4Hr 60 H* 04/05/25 21:11: POC Glucose 76 04/05/25 21:49: Urine Color Yellow, Urine Clarity Clear, Urine pH 5.0, Ur Specific [place] 1.015, Urine Protein 100 H, Urine Glucose (UA) Normal, Urine Ketones Negative, Urine Occult Blood 10 H, Urine Nitrite Negative, Urine Bilirubin Negative, Urine Urobilinogen Normal, Ur Leukocyte Esterase 500 H, Urine RBC 0-5 SEEN, Urine WBC 5-10 SEEN, Ur Squamous Epith Cells 0-5 SEEN, UrineBacteria 2+, Urine Mucus 0 SEEN 04/06/25 02:22: POC Glucose 112 H 04/06/25 04:58: WBC 7.8, RBC 2.94 L, Hgb 7.9 L, Hct 26.3 L, MCV 89.5, MCH 26.9 L, MCHC 30.0 L, RDW Std Deviation 54.7 H, RDW Coeff of Reggie 16.8 H, Plt Count 178,MPV 10.4, Immature Gran % (Auto) 0.600, Neut % (Auto) 81.9 H, Lymph % (Auto) 6.4L, [place] % (Auto) 10.1 H, Eos % (Auto) 0.5, Baso % (Auto) 0.5, Absolute Neuts (auto) 6.4, Absolute Lymphs (auto) 0.50 L, Nucleated RBC % 0, Sodium 138, Potassium 4.7, Chloride 100, Carbon Dioxide 27.9, Anion Gap 10, BUN 58 H, Creatinine 2.52 H, Estim Creat Clear Calc 22.79 L, Est GFR (MDRD) Non-Af 25 L, BUN/Creatinine Ratio 22.8 H, Glucose 102 H, Calcium 8.8, Phosphorus 5.4 H, Total Bilirubin 0.40, AST 19, ALT 13, Alkaline Phosphatase 70, NT pro BNP II 4038 H, Total Protein 6.8, Albumin 3.3 L, Globulin 3.5, Albumin/Globulin Ratio 0.9 04/06/25 06:22: POC Glucose 116 H Micro: Microbiology 04/05/25 17:05 Mucosa - Nose SARS-CoV-2, Influenza & RSV (PCR) - Final ABG Data ABG results: ABG 04/05/25 21:25 Specimen Type ART Sample Site R Radial pH 7.36 Bicarbonate Actual 32.4 H Total CO2 34 Base Excess 7 H O2 Saturation 93 L O2 % 6.0 ABG pCO2 57.1 H ABG pO2 71 L Emilia Test Positive O2 Delivery Device Cannula Vent Mode Not entered Radiography Diagnostic Testing: Radiology Impression Chest X-Ray 04/05/25 17:25 IMPRESSION: CHF with moderate right and small left pleural effusions/atelectasis, and pulmonary edema. Underlying infectious/inflammatory process cannot be reliably excluded. Reading Location: [id number] Chest X-Ray 04/06/25 04:13 IMPRESSION: Unchanged bilateral pleural effusions. Unchanged passive atelectatic airspace disease of the lower lobes. Unremarkable median sternotomy wires. Minimal decrease in pulmonary congestion/infiltrates. Enlarged cardiac silhouette. Reading Location: [place] [address] Physical Exam Narrative Seen and examined Patient still short of breath, shallow breathing tachypneic. On 8 L of oxygen. He states he has sometimes cough and occasionally brings up phlegm whitish color. No fever. Denies chest pressure or pain. He also had a bone on the right upper thigh due to grease/chemical about 1 week ago Physical exam General: Alert, Oriented x3, Cooperative HEENT: Atraumatic, PERRLA, EOMI, Normocephalic. Oral: No Gingival or Mucosal Lesions/ Ulcerations Neck: Supple, No JVD, Negative Carotid Bruits Chest wall/Lungs: Air entry diminished in bilateral lung bases. No crepitation/rhonchi Cardiovascular: Regular rate and rhythm, Normal S1,S2, systolic murmur Abdomen: Bowel Sounds Present, Soft, Non Tender, Non-Distended : No dysuria. No renal angle tenderness. No suprapubic tenderness. Extremities: No edema, Capillary Refill Less than 3 Seconds Skin: Superficial ulcer with slough on the right upper thigh. Chronic venous hypertensive changes in lower legs. No edema. Scab present in bilateral lower leg. Musculoskeletal: No Tenderness to Palpation of Joints or Extremities Neurological: Cranial nerves II-XII grossly intact, DTR 2+/4. No acute focal neurological deficit. Psych/Mental Status: Normal Affect, Appropriate. Assessment & Plan Assessment/Plan (1) Acute on chronic diastolic congestive heart failure: (2) Elevated troponin: (3) Presence of aortocoronary bypass graft: (4) Hyperkalemia: (5) CKD (chronic kidney disease), stage IV: (6) Respiratory insufficiency: (7) Acute cystitis without hematuria: (8) Chronic atrial fibrillation: (9) Chronic anticoagulation: (10) Overweight (BMI 25.0-29.9): PLAN: Plan 80-year-old gentleman being brought to ED by EMS for hypotension, SBP 85 mmHg, pulse ox 88% on 3 L of oxygen, chronic baseline home oxygen requirement with increasing productive cough. Patient's [id number] increased O2 to 4 L. Noleg swelling. 1. Acute on chronic HFpEF: Patient is being admitted in the PCU. proBNP 4003. Chest x-ray initially shows moderate right and small left pleural effusion and atelectasis and pulmonary edema. Serial troponins 64, 62 and 60 flat and indeterminate and not indicative of ACS.2D echo 03/05 reported EF 55%, PASP 42 mmHg with moderate TR, moderate MN and mild PI. TSH normal Plan: Patient is started on furosemide 40 mg IV twice daily. Heart failure coremeasures including intake and output, fluid restriction less than 1500 mL, dailyweight monitoring, kidney and electrolytes monitoring. 2. Persistent trial flutter/atrial fib: Currently patient in sinus rhythm. On property assessment monitor sinus rhythm 105 bpm. During previous admission patient has prolonged hospital course of A-fib RVR/flutter, and severe bradycardia thereforeclinical diagnosis of tachybradycardia syndrome. Patient was seen by Leslie Arriaga in cardiology office and 24-hour Holter monitor was done. On diltiazem. 24-hour Holter monitor shows atrial fibrillation/flutter with occasional PVC. Toprol-XL 12.5 mg twice daily and Cardizem CD 120 mg daily resumed. On Eliquis 2.5 mg twice daily. Medications spaced out to avoid hypotension. During ED patient did not had bradycardia 3. DARIUSZ on CKD stage IV with hyperkalemia, present on admission: Admitting BUN/creatinine 60/2.57, estimated creatinine clearance 22 mL/min. During previous admission patient's BUN/creatinine was 37/1.86. His baseline creatinine progressively between 2.13 and 2.41. During previous admission, furosemide, Januvia were on hold. Patient was discharged with Claudio catheter on Flomax CAD; s/p CABG x 3 (2012) -Plavix was discontinued during last cardiology officevisit due to nosebleed in March 13 Essential hypertension; on lisinopril and metoprolol BID - Resume home regimenplus give as needed IV hydralazine for systolic blood pressure greater than 160 mmHg. Hyperlipidemia; on pravastatin - Continue statin and check lipid profile. Acute on chronic hypoxic and hypercarbic respiratory failure due to mild COPD exacerbation and HF exacerbation: Patient feeling chest tightness, wheezing. Patient is being managed on scheduled bronchodilator, IV Solu-Medrol, Mucinex, incentive spirometry and Pep. ABG 7.3 6/57/71/34 on 6 L of oxygen. Bicarb in BMP 26.7. Therefore there is mismatch/inconsistent with bicarb in BMP and ABG. His baseline bicarb and BMP stands about 26-27. Previous ABG in July 2023 showed PCO2 42.6. Triple PCR for SARS-CoV-2, flu and RSV are negative. 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 On sitagliptin. Accu-Chek before meals and at bedtime with Humalog sliding scale coverage and hypoglycemia protocol. 03/09 glucoses controlled 118. A1c 6.3%. Peripheral artery disease with history of left lower extremity ulcer status post aortofemoral bypass graft in 2009 and chronic venous insufficiency. Overweight; with BMI of 26 this admission - Weight loss will be recommended. Chronic anemia - Stable with hemoglobin of 10.1 g/dL and MCV of 89.3 fL present on admission. Hemoglobin 9.3. Does not show significant drop or meet criteria for acute anemia Chronic degenerative arthritis, give acetaminophen prn pain or fever DVT prophylaxis - Patient already on apixaban for #2 which will be continued. Echocardiogram 03/04/25 20:08 Interpretation Summary Moderate concentric left ventricular hypertrophy. The LV ejection fraction is 55 %. Stage 1 diastolic dysfunction. The left atrium is severely enlarged. Severe mitral valve annular calcification. Moderate posteriorly directed mitral valve regurgitation. Moderate tricuspid valve regurgitation. Estimated pulmonary artery systolic pressure 42 mmHg. Mild (1+) pulmonic valve insufficiency. The study was technically difficult. Microbiology Past 72 Hours 04/06/25 06:47 Mucosa - Nasopharyngeal Respiratory Panel (PCR) - Final 04/05/25 17:05 Mucosa - Nose SARS-CoV-2, Influenza & RSV (PCR) - Final Laboratory Results 04/05/25 17:10: WBC 8.7, RBC 3.27 L, Hgb 8.9 L, Hct 29.0 L, MCV 88.7, MCH 27.2, MCHC 30.7 L, RDW Std Deviation 55.5 H, RDW Coeff of Reggie 17.1 H, Plt Count 226, MPV 11.1, Immature Gran % (Auto) 0.700, Neut % (Auto) 79.7 H, Lymph % (Auto) 7.3L, [place] % (Auto) 10.7 H, Eos % (Auto) 1.0, Baso % (Auto) 0.6, Absolute Neuts (auto) 7.0, Absolute Lymphs (auto) 0.64 L, Nucleated RBC % 0.2, Sodium 134, Potassium 5.8 H, Chloride 97 L, Carbon Dioxide 26.7, Anion Gap 11, BUN 60 H, Creatinine 2.57 H, Estim Creat Clear Calc 22.62 L, Est GFR (MDRD) Non-Af 25 L, BUN/Creatinine Ratio 23.2 H, Glucose 164 H, Calcium 8.8, Troponin T High Sens 64 H* D, NT pro BNP II 4003 H 04/05/25 17:50: POC Glucose 147 H 04/05/25 19:10: Magnesium 2.5 H, Troponin T Hi Sens 2 Hr 62 H*, TSH 3.830 04/05/25 20:59: Troponin T Hi Sens 4Hr 60 H* 04/05/25 21:11: POC Glucose 76 04/05/25 21:25: Specimen Type ART, Sample Site R Radial, pH 7.36, Bicarbonate Actual 32.4 H, Total CO2 34, Base Excess 7 H, O2 Saturation 93 L, O2 % 6.0, ABG pCO2 57.1 H, ABG pO2 71 L, Emilia Test Positive, O2 Delivery Device Cannula, VentMode Not entered 04/05/25 21:49: Urine Color Yellow, Urine Clarity Clear, Urine pH 5.0, Ur Specific [place] 1.015, Urine Protein 100 H, Urine Glucose (UA) Normal, Urine Ketones Negative, Urine Occult Blood 10 H, Urine Nitrite Negative, Urine Bilirubin Negative, Urine Urobilinogen Normal, Ur Leukocyte Esterase 500 H, Urine RBC 0-5 SEEN, Urine WBC 5-10 SEEN, Ur Squamous Epith Cells 0-5 SEEN, UrineBacteria 2+, Urine Mucus 0 SEEN 04/06/25 02:22: POC Glucose 112 H 04/06/25 04:58: WBC 7.8, RBC 2.94 L, Hgb 7.9 L, Hct 26.3 L, MCV 89.5, MCH 26.9 L, MCHC 30.0 L, RDW Std Deviation 54.7 H, RDW Coeff of Reggie 16.8 H, Plt Count 178,MPV 10.4, Immature Gran % (Auto) 0.600, Neut % (Auto) 81.9 H, Lymph % (Auto) 6.4L, [place] % (Auto) 10.1 H, Eos % (Auto) 0.5, Baso % (Auto) 0.5, Absolute Neuts (auto) 6.4, Absolute Lymphs (auto) 0.50 L, Nucleated RBC % 0, Sodium 138, Potassium 4.7, Chloride 100, Carbon Dioxide 27.9, Anion Gap 10, BUN 58 H, Creatinine 2.52 H, Estim Creat Clear Calc 22.79 L, Est GFR (MDRD) Non-Af 25 L, BUN/Creatinine Ratio 22.8 H, Glucose 102 H, Calcium 8.8, Phosphorus 5.4 H, Total Bilirubin 0.40, AST 19, ALT 13, Alkaline Phosphatase 70, NT pro BNP II 4038 H, Total Protein 6.8, Albumin 3.3 L, Globulin 3.5, Albumin/Globulin Ratio 0.9 04/06/25 06:22: POC Glucose 116 H 04/06/25 11:56: POC Glucose 140 H Charges/Coding Visit Charges Inpatient E&M: 25971 Subs Hosp L3 04/06/25 1653 <Electronically signed by Deric Lantigua MD> Cosigner Signature (if applicable): CC: ~ Signed [facility] Work Phone: 1(106) 878-880008-18-[address] [facility]08-18-2025 History and physical note Author Nicola Madison [facility] Note Date/Time April 06, 2025 6: 23am [facility] Medical Records Department [address] [place] [address] H&P Exam - Hospitalist 04/05/251917 MR#: [id number] Acct: [id number] Name: PEDRO HILLMAN Rep #:[id number] : 1945 80 From: Nicola Levy DO PCP: Dr. Tonio Fajardo DO Status:ADM IN Location: [place] [id number] HPI - General General Date of Admission: 04/05/25 Date of Service: 04/05/25 Chief Complaint: SOB, Cough and Hypotension. HPI Narrative PEDRO HILLMAN, is a 80 M with a past medical history of essential hypertension;on metoprolol twice daily, hyperlipidemia; on pravastatin, overweight; with a BMI of 28 this admission, DM-2; of unknown control on empagliflozin and insulin glargine 30 units subcu at bedtime, diabetic polyneuropathy; currently not on treatment, CAD; s/p CABG x 3 (2012), chronic atrial fibrillation; on diltiazem and apixaban twice daily, former tobacco abuse; with subsequent COPD and remote history of lung cancer, chronic hypoxic respiratory failure on 3L NC continuous,history of COVID-19, PAD; s/p aortofemoral bypass (~2009), chronic lower extremity edema with venous insufficiency, CKD; stage IV, chronic anemia, BPH; s/p TURP on tamsulosin, history of osteomyelitis of the Left ankle, GERD; currently not on treatment, OA and patient still FULL CODE who presents to [facility] ER complaining of shortness of breath, cough and hypotension. Mr. Hillman reports his symptoms began this morning when he noted a blood pressure 100/85 mmHg with increasing shortness of breath that caused him to increase his oxygenation to 4L NC. EMS was then activated and he was noted to have a oxygen saturation of 88% in spite of being on 4L NC. He was then given atropine x 1 for his blood pressure. There was no report of associated fever, chills, runny nose, sore throat, ear pain, chest pain, palpitations, heart racing, lower extremity edema, abdominal pain, nausea, vomiting, diarrhea, constipation, dysuria, hematuria, headache or rash. In the ER he was noted to have an elevated NT pro-BNP II of 4,003 pg/mL present on admission with a corresponding CXR that revealed AE CHF with moderate right and small left pleural effusion/atelectasis with pulmonary edema and with underlying infectious/inflammatory process cannot be reliably excluded with mildly elevatedtroponin T of 64 ng/L likely due to acute cardiac strain complicated by Hyperkalemia of 5.8 mmol/L present on admission in the setting of CKD; stage IV with serum creatinine of 2.57 mg/dL and BUN of 60 mg/dL present on admission compounded by clinical evidence of acute-on chronic respiratory insufficiency. He was then admitted to the PCU for ongoing care for status expected to extend beyond 2 midnights. [facility] Medical History Peripheral arterial disease Other persistent atrial fibrillation New onset atrial flutter DIMA Wears hearing aid in both ears Former smoker Coronary artery disease Peripheral vascular occlusive disease BPH (benign prostatic hyperplasia) Chronic kidney disease, stage 3 Atherosclerosis of coronary artery of [place] heart without angina pectoris Hyperlipidemia Lower extremity edema Venous insufficiency Malnutrition Delayed wound healing Osteomyelitis of ankle, left, acute Ulcer of left lower extremity with fat layer exposed Type 2 diabetes mellitus with diabetic polyneuropathy Anemia GERD (gastroesophageal reflux disease) Hypertension Home Medications ?Medication ?Instructions ?Recorded ?Last Taken ?Type insulin glargine 100 unit/mL 30 unit SQ QHS diabetes 0 11/19/19 03/03/25 History subcutaneous solution multivitamin (Daily [...] (Anoro Ellipta) apixaban 5 mg tablet (Eliquis) 2.5 mg [...] 30 days #30 03/09/25 Unknown Rx caps metoprolol succinate 25 mg 12.5 mg (1/2 x 25 mg) PO BI D #90 04/03/25 Unknown Rx tablet,extended release 24 hr tabs clopidogrel 75 mg tablet 75 mg PO DAILY 04/05/25 Unkn own History insulin glargine 100 unit/mL (3 unit subcut 04/05/25 U nknown History mL) subcutaneous pen (Lantus Solostar U-100 Insulin) Allergy/AdvReac Type Severity Reaction Status Date / Time ibuprofen Allergy Severe Facial Verified 04/05/25 16:44 swelling (angioedema) Family History Brother Diabetes Father [...] denies fever or chills. Eyes: Patient denies change in vision or discharge from eyes. ENT: Patient denies runny nose, sore throat or ear pain. Resp: Patient admits to shortness of breath and cough but he denies wheezing. CV: Patient denies chest pain, palpitations, heart racing or lower extremity edema. GI: Patient denies abdominal pain, nausea, vomiting, diarrhea or constipation. : Patient denies dysuria, hematuria or urinary frequency. MSK: Patient denies arthralgias or myalgias. Skin: Patient denies rash, abscess, wounds or jaundice. Psych: Patient denies symptoms of uncontrolled depression or anxiety. Neuro: Patient denies headache, paresthesias or focal neurologic deficits. Allergy: Patient denies lip swelling, tongue swelling or urticaria. Hematology: Patient admits to easy bleeding and easy bruisability on apixaban. Endocrinology: Patient denies polyuria, polydipsia, polyphagia or heat/cold intolerance. 14 point ROS otherwise negative except for positives noted above in HPI. Vital Signs Vital Signs Vital Signs: 04/05/25 16:41 04/05/25 16:48 04/05/25 16:50 Temperature 97.6 F L 97.6 F L Temperature Source Oral Oral Pulse Rate 101 H 102 H Respiratory Rate 26 H 28 H Respiratory Effort Short of Breath Blood Pressure 120/63 121/66 H Blood Pressure Mean 82 84 Pulse Ox 92 96 Oxygen Delivery Method Nasal Cannula Nasal Cannula Oxygen Flow Rate (L/min) 3 04/05/25 17:14 04/05/25 17:30 04/05/25 17:44 Temperature 97.6 F L Temperature Source Oral Pulse Rate 101 H 68 75 Respiratory Rate 21 H 23 H Respiratory Effort Blood Pressure 95/57 L 101/75 136/112 H Blood Pressure Mean 69 83 120 Pulse Ox 96 96 94 Oxygen Delivery Method Nasal Cannula Room Air Nasal Cannula Oxygen Flow Rate (L/min) 3 3 3 04/05/25 18:00 04/05/25 18:30 04/05/25 19:00 Temperature Temperature Source Pulse Rate 101 H 102 H 101 H Respiratory Rate 24 H 36 H Respiratory Effort Blood Pressure 108/68 108/88 H 121/79 H Blood Pressure Mean 81 94 93 Pulse Ox 95 93 94 Oxygen Delivery Method Nasal Cannula Nasal Cannula Nasal Cannula Oxygen Flow Rate (L/min) 3 3 3 04/05/25 19:12 04/05/25 19:17 Temperature 98 F Temperature Source Pulse Rate 102 H 101 H Respiratory Rate 19 H 22 H Respiratory Effort Blood Pressure 121/61 H Blood Pressure Mean 81 Pulse Ox 97 Oxygen Delivery Method Oxygen Flow Rate (L/min) Weight Weight: 173 lb 8.061 oz Body Mass Index (BMI) 28.0 Physical Exam Const alert, oriented x3, no apparent distress and average body habitus Constitutional Narrative: Patient has chronically ill but nontoxic appearance. General Appearance: cooperative HEENT normocephalic, head/scalp atraumatic, hearing grossly normal bilaterally and moist oral mucous membranes Eyes PERRL, EOMs intact bilaterally and conjunctivae normal Neck no lymphadenopathy and supple Resp Resp Narrative: Diminished breath sounds throughout. Cardio regular rate and regular rhythm GI normal to inspection, nondistended, normoactive [...] Attestation: I reviewed the patient's lab results. 04/06/25 04:58 04/05/25 17:10 Labs: Laboratory Results - last 24 hr 04/05/25 17:10: WBC 8.7, RBC 3.27 L, Hgb 8.9 L, Hct 29.0 L, MCV 88.7, MCH 27.2, MCHC 30.7 L, RDW Std Deviation 55.5 H, RDW Coeff of Reggie 17.1 H, Plt Count 226, MPV 11.1, Immature Gran % (Auto) 0.700, Neut % (Auto) 79.7 H, Lymph % (Auto) 7.3L, [place] % (Auto) 10.7 H, Eos % (Auto) 1.0, Baso % (Auto) 0.6, Absolute Neuts (auto) 7.0, Absolute Lymphs (auto) 0.64 L, Nucleated RBC % 0.2, Sodium 134, Potassium 5.8 H, Chloride 97 L, Carbon Dioxide 26.7, Anion Gap 11, BUN 60 H, Creatinine 2.57 H, Estim Creat Clear Calc 22.62 L, Est GFR (MDRD) Non-Af 25 L, BUN/Creatinine Ratio 23.2 H, Glucose 164 H, Calcium 8.8, Troponin T High Sens 64 H* D, NT pro BNP II 4003 H 04/05/25 17:50: POC Glucose 147 H Micro: Microbiology 04/05/25 17:05 Mucosa - Nose SARS-CoV-2, Influenza & RSV (PCR) - Final Imaging Radiology Impression Chest X-Ray 04/05/25 17:25 IMPRESSION: CHF with moderate right and small left pleural effusions/atelectasis, and pulmonary edema. Underlying infectious/inflammatory process cannot be reliably excluded. Reading Location: [id number] Assessment & Plan Assessment/Plan (1) Acute on chronic diastolic congestive heart failure: (2) Elevated troponin: (3) Presence of aortocoronary bypass graft: (4) Hyperkalemia: (5) CKD (chronic kidney disease), stage IV: (6) Respiratory insufficiency: (7) Acute cystitis without hematuria: (8) Chronic atrial fibrillation: (9) Chronic anticoagulation: (10) Overweight (BMI 25.0-29.9): PLAN: Plan 1. Elevated NT pro-BNP II of 4,003 pg/mL present on admission with a corresponding CXR that revealed AE of Chronic Diastolic CHF; with preserved LVEFwith moderate right and small left pleural effusion/atelectasis with pulmonary edema and with underlying infectious/inflammatory process cannot be reliably excluded with patient still FUL CODE - Admit to PCU. Continue furosemide 40 mg IV twice daily plus give supplemental magnesium. Give IV albumin to allow for diuresis without exacerbating hypotension or CKD; stage IV. Patient underwent recent echocardiogram done here on March 04, 2025 that revealed LVEF ~55% with stage I diastolic dysfunction and moderate concentric LVH. 2. Elevated troponin T of 64 ng/L likely due to acute cardiac strain arising from #1 in the setting of previously known CAD; s/p CABG x 3 (2012) - Serialize troponin. Continue clopidogrel and statin. Doubt ACS. 3. Hyperkalemia of 5.8 mmol/L present on admission in the setting of CKD; stageIV with serum creatinine of 2.57 mg/dL and BUN of 60 mg/dL present on admission with Hypotension complicating #1 & #2 - Patient treated with IV furosemide in addition to IV insulin in ER. We will also give oral polystyrene and recheck CMP daily to follow trend of potassium level and to follow kidney function. We will avoid potentially nephrotoxic agents. We will give IV albumin to allow fordiuresis without exacerbating hypotension or CKD; stage IV. Finally, we will consult nephrology to see this patient on rounds in the a.m. for further recommendations given the complexity of his case with help appreciated in advance. 4. Acute-on chronic Respiratory Insufficiency attributable to #1 - #3 in the setting of previously known former tobacco abuse; with subsequent COPD and remote history of lung cancer and chronic hypoxic respiratory failure on 3L NC continuous - Wean additional supplemental oxygen as tolerated. Patient has no evidence of COPD exacerbation at this time. Continue scheduled and as needed nebulizers as before. 5. UA positive for Acute Cystitis; without hematuria adding to the medical complexity of #1 - #4 - Start ceftriaxone IV and await culture & sensitivity data. 6. Chronic atrial fibrillation; on diltiazem and apixaban twice daily adding tothe burden of disease outlined from #1 - #5 - Maintain apixaban as previous but hold diltiazem due to hypotension. Will give digoxin IV as needed for breakthrough RVR if it occurs. 7. Overweight; with a BMI of 28 this admission - Weight loss will be recommended. Check TSH. 8. Essential hypertension; on metoprolol twice daily - Hold scheduled antihypertensives in light of hypotension. 9. Hyperlipidemia; on pravastatin - Resume statin. 10. DM-2; of unknown control on empagliflozin and insulin glargine 30 units subcu at bedtime plus diabetic polyneuropathy; currently not on treatment - Holdempagliflozin and decrease insulin glargine by ~30% to prevent hypoglycemia. Check FSBS q. AC/HS plus lowest-intensity SSI. 11. PAD; s/p aortofemoral bypass (~2009) - Noted. 12. Chronic anemia - Stable hemoglobin of 8.9 g/dL and MCV of 88.7 fL present on admission. 13. History of COVID-19 - Noted with no evidence of recurrence at this time. 14. History of lower extremity edema with venous insufficiency - Stable with noevidence of LE edema at this time. 15. BPH; s/p TURP on tamsulosin - Resume tamsulosin. 16. History of osteomyelitis of the Left ankle - Noted. 17. GERD; currently not on treatment - Start PPI if symptoms develop. 18. OA - Give acetaminophen prn for pain or fever. 19. DVT prophylaxis - Patient is already on apixaban for #5 which will be continued. Total time: Approximately (but not less than) 75 minutes. Charges/Coding Visit Charges Inpatient E&M: 80090 Init Hosp L3 04/06/25 0623 <Electronically signed by Nicola Lindsey DO> Cosigner Signature (if applicable): CC: Dr. Nicola Lindsey DO; Dr. Tonio Fajardo DO~ Signed [facility] Work Phone: 1(304) 304-889908-18-[address] [facility]08-18-2025 Discharge summary Author Ld Hayes [facility] Note Date/Time April 06, 2025 12 :36am [facility] Medical Records Department [address] [place] [address] Emergency Department Summary 04/05/25 MR#: [id number] Acct: [id number] Name: PEDRO HILLMAN Rep #:[id number] : 1945 80 From: Ld Quintero PCP: Dr. Tonio Fajardo, DO Status:ADM IN Location: [place] [id number]- [id number] HPI History of Present Illness Chief Complaint: Hypotension Informant: patient and family Narrative Narrative: Presents by EMS from home daughter in law present. Increasing productive cough. Chronic oxygenation of 3 L for COPD history remote history of lung cancer. [id number] reports that increase his oxygen to 4 L. He is on Eliquis for history of A-fib. He has been using his Hailer at home. Denies leg swelling. EMS was contacted his 3 L was 88% and he had a blood pressure of 85. She has been EKG sinus rhythm right bundle branch block heart rate of 100. Reported he was given atropine by EMS blood pressure responded. He denies any chest pain orany exertional dyspnea. Diabetes CKD history. He is followed by the [facility]. Reports he was admitted 3 weeks ago approximately had his metoprolol held and placed on diltiazem. Prior similar symptoms: Yes PFSH PFS Medical History Peripheral arterial disease Other persistent atrial fibrillation New onset atrial flutter COVID Wears hearing aid in both ears Former smoker Coronary artery disease Peripheral vascular occlusive disease BPH (benign prostatic hyperplasia) Chronic kidney disease, stage 3 Atherosclerosis of coronary artery of [place] heart without angina pectoris Hyperlipidemia Lower extremity edema Venous insufficiency Malnutrition Delayed wound healing Osteomyelitis of ankle, left, acute Ulcer of left lower extremity with fat layer exposed Type 2 diabetes mellitus with diabetic polyneuropathy Anemia GERD (gastroesophageal reflux disease) Hypertension Home Medications ?Medication ?Instructions ?Recorded ?Last Taken ?Type insulin glargine 100 unit/mL 30 unit SQ QHS diabetes 0 11/19/19 03/03/25 History subcutaneous solution multivitamin (Daily [...] (Anoro Ellipta) apixaban 5 mg tablet (Eliquis) 2.5 mg [...] 30 days #30 03/09/25 Unknown Rx caps metoprolol succinate 25 mg 12.5 mg (1/2 x 25 mg) PO BI D #90 04/03/25 Unknown Rx tablet,extended release 24 hr tabs clopidogrel 75 mg tablet 75 mg PO DAILY 04/05/25 Unkn own History insulin glargine 100 unit/mL (3 unit subcut 04/05/25 U nknown History mL) subcutaneous pen (Lantus Solostar U-100 Insulin) Allergy/AdvReac Type Severity Reaction Status Date / Time ibuprofen Allergy Severe Facial Verified 04/05/25 16:44 swelling (angioedema) Family History Brother Diabetes Father [...] ROS ED Constitutional Constitutional ED: Denies chills, fever(s) or sweats ENT ENT ED: Denies sore throat Cardiovascular Cardiovascular: Denies chest pain, leg edema, palpitations or racing heartbeat Respiratory/Chest Respiratory/Chest: Reports cough and dyspnea; Denies dyspnea on exertion Gastrointestinal Gastrointestinal: Denies abdominal pain, diarrhea, nausea or vomiting Genitourinary Genitourinary ED: Denies dysuria, hematuria or urinary frequency Musculoskeletal Musculoskeletal: Denies back pain, extremity pain or neck pain Integumentary Denies rash or wounds Neurologic Neurologic: Denies headache(s), paresthesias or weakness EXAM Physical Exam Const Vital Signs: 04/05/25 16:41 04/05/25 16:48 04/05/25 16:50 Temperature 97.6 F L 97.6 F L Temperature Source Oral Oral Pulse Rate 101 H 102 H Respiratory Rate 26 H 28 H Respiratory Effort Short of Breath Blood Pressure 120/63 121/66 H Blood Pressure Mean 82 84 Pulse Ox 92 96 Oxygen Delivery Method Nasal Cannula Nasal Cannula Oxygen Flow Rate (L/min) 3 04/05/25 17:14 04/05/25 17:30 04/05/25 17:44 Temperature 97.6 F L Temperature Source Oral Pulse Rate 101 H 68 75 Respiratory Rate 21 H 23 H Respiratory Effort Blood Pressure 95/57 L 101/75 136/112 H Blood Pressure Mean 69 83 120 Pulse Ox 96 96 94 Oxygen Delivery Method Nasal Cannula Room Air Nasal Cannula Oxygen Flow Rate (L/min) 3 3 3 04/05/25 18:00 04/05/25 18:30 04/05/25 19:00 Temperature Temperature Source Pulse Rate 101 H 102 H 101 H Respiratory Rate 24 H 36 H Respiratory Effort Blood Pressure 108/68 108/88 H 121/79 H Blood Pressure Mean 81 94 93 Pulse Ox 95 93 94 Oxygen Delivery Method Nasal Cannula Nasal Cannula Nasal Cannula Oxygen Flow Rate (L/min) 3 3 3 04/05/25 19:12 04/05/25 19:17 04/05/25 19:30 Temperature 98 F Temperature Source Pulse Rate 102 H 101 H 101 H Respiratory Rate 19 H 22 H 25 H Respiratory Effort Blood Pressure 121/61 H 123/68 H Blood Pressure Mean 81 86 Pulse Ox 97 94 Oxygen Delivery Method Nasal Cannula Oxygen Flow Rate (L/min) 4 Positive well nourished and well developed Constitutional Narrative: 4 L nasal cannula General Appearance ED: well developed and NAD HEENT Reports moist mucous membranes normocephalic and atraumatic Eyes General Eye ED: Yes normal appearance of both eyes Neck full ROM Chest Wall Chest: Negative for tenderness Resp normal respiratory effort and normal air movement Effort and Inspection: symmetric chest movement; Negative for respiratory distress Cardio regular rate, regular rhythm and no murmurs Peripheral Pulses: pulses 2+ throughout GI normal to inspection, nondistended, normoactive bowel sounds and non-tender Palpation: Negative for guarding or rebound tenderness present Extremity normal to inspection General Extremety ED: Negative for edema or tenderness General Extremity: Negative for edema Neuro oriented x3, CN's II-XII intact bilaterally and no sensory deficits noted Sensorium / Orientation: awake and alert Skin no rashes or lesions noted and no wounds MDM MDM MDM Narrative Medical decision making narrative: Interventions / MDM: Differential diagnosis: CHF exacerbation, hypoxia Diagnosis considered but do not suspect: Pneumonia however x-ray negative My EKG interpretation: Sinus rate of 101, ST depression in lateral leads no elevations, right bundle branch block QT 448. Similar EKG findings from February ofthis year. Imaging independently reviewed and interpreted by myself: 2 view chest x-ray: Vascular congestion External documents reviewed: Echocardiogram March 04 EF 55% stage I diastolic dysfunction. Mild valve insufficiencies. Hospitalization from February visit reviewed, apparently had potential tachybradycardia syndrome, they did not feel he required pacemaker at that time. He follow-up cardiology office on 07 March there was plan for Holter monitor. Test considered but not ordered:N/A ED course: Patient status post atropine heart rate blood pressure stable on evaluation. Have a blood pressure in the 80s by EMS pulse ox of 88% on 3 L he is reported productive cough. EKG is chronic ST depression laterally compared to previous. 2 view chest x-ray ordered will order labs including viral nasal studies. Will continue oxygen there is no active wheezing at this time. Per nursing interim heart rate was down to 50s briefly on my review was in the 70s. He more slow a flutter. Will continue to monitor at this time. Chest x-ray vascular congestion. BNP added elevated at 4000. Reevaluation heart rate low 100s sinus rhythm on the monitor. She requiring increased oxygenation up to 4 L from his baseline 3 L. He was given IV Lasix to 40 mg. Potassium was 5.8 no EKG changes aerosol treatments insulin glucose was ordered. I discussed with hospitalist Dr. Cheema for admission. Re-evaluation: stable Disposition discussed with patient/family/significant other: Patient and family Case discussed with consulting clinician: Hospitalist This note was generated with [employer] dictation software. It may contain incorrectwords, spelling, and punctuation that were not noted in checking the note beforesigning. Lab Data Attestation: I reviewed the patient's lab results. Labs: Laboratory Results - last 24 hr 04/05/25 04/05/25 04/05/25 17:10 17:50 19:10 WBC 8.7 RBC 3.27 L Hgb 8.9 L Hct 29.0 L MCV 88.7 MCH 27.2 MCHC 30.7 L RDW Std Deviation 55.5 H RDW Coeff of Reggie 17.1 H Plt Count 226 MPV 11.1 Immature Gran % (Auto) 0.700 Neut % (Auto) 79.7 H Lymph % (Auto) 7.3 L [place] % (Auto) 10.7 H Eos % (Auto) 1.0 Baso % (Auto) 0.6 Absolute Neuts (auto) 7.0 Absolute Lymphs (auto) 0.64 L Nucleated RBC % 0.2 Sodium 134 Potassium 5.8 H Chloride 97 L Carbon Dioxide 26.7 Anion Gap 11 BUN 60 H Creatinine 2.57 H Estim Creat Clear Calc 22.62 L Est GFR (MDRD) Non-Af 25 L BUN/Creatinine Ratio 23.2 H Glucose 164 H Calcium 8.8 Magnesium 2.5 H Troponin T High Sens 64 H* D Troponin T Hi Sens 2 Hr 62 H* NT pro BNP II 4003 H TSH 3.830 POC Glucose 147 H Radiography Diagnostic Testing: Clinical Impression(s) from Imaging Studies Chest X-Ray 04/05/25 17:25 IMPRESSION: CHF with moderate right and small left pleural effusions/atelectasis, and pulmonary edema. Underlying infectious/inflammatory process cannot be reliably excluded. Reading Location: [id number] Discharge Plan Dx/Rx/DC Orders Clinical Impression: CHF exacerbation, Chronic kidney disease, stage 3, Atrial flutter, Chronic anticoagulation, Hyperkalemia Disposition Disposition: Acute Care Hospital [facility] Discharge Date/Time: 04/05/25 20:38 What to do if you have Problems For any increased pain, shortness of breath, bleeding, nausea or vomiting, chestpain, or any unexpected problems, contact your Primary Care Provider. Call [facility] ([phone]) or report to the closest Emergency Room. Call 911 if necessary. 04/06/25 0036 <Electronically signed by Ld Quintero> Cosigner Signature (if applicable): CC: Dr. Tonio Fajardo DO ~ Signed [facility] Work Phone: 1(830) 655-639908-17-[address] [facility]07-27-2025 Discharge summary [facility] Medical Records Department [address] [place] [address] Emergency Department Summary 03/15/25 MR#: [id number] Acct: [id number] Name: PEDRO HILLMAN Rep #:[id number] : 1945 80 From: Alex Matias MD PCP: Dr. Tonio Fajardo DO Status:REG [...] similar symptoms: Yes Recent Illness/Hospitalization: Yes (CHF) [facility] Medical History Other persistent atrial fibrillation New onset atrial flutter COVID Wears hearing aid in both ears Former smoker Coronary artery disease Peripheral vascular occlusive disease BPH (benign prostatic hyperplasia) Chronic kidney disease, stage 3 Atherosclerosis of coronary artery of [place] heart without angina pectoris Hyperlipidemia Lower extremity [...] he is on anticoagulant recommended treatment is tohave a pack placed. Patient had a anterior Merisel pack placed left side without difficulty. He wasobserved for over 30minutes. He had no bleeding. He will be [...] 4 doses of apixaban, Eliquis Print Language: Swiss Disposition Disposition: Home, Self Care What to do if you have Problems For any increased pain, shortness of breath, bleeding, nausea or vomiting, chestpain, or any unexpected problems, contact your Primary Care Provider. Call [facility] ([phone]) or report tothe closest Emergency Room. Call 911 if necessary. 03/15/252 Cosigner Signature (if applicable): CC: Dr. Tonio Fajardo DO ~ Signed [facility]07-27-2025 Discharge summary Author Alex Matias [facility] Note Date/Time March 15, 2025 6:22 pm [facility] Medical Records Department [address] [place] [address] Emergency Department Summary 03/15/25 MR#: [id number] Acct: [id number] Name: PEDRO HILLMAN Rep #:[id number] : 1945 80 From: Alex Matias MD PCP: Dr. Tonio Fajardo DO Status:REG [...] similar symptoms: Yes Recent Illness/Hospitalization: Yes (CHF) [facility] Medical History Other persistent atrial fibrillation New onset atrial flutter COVID Wears hearing aid in both ears Former smoker Coronary artery disease Peripheral vascular occlusive disease BPH (benign prostatic hyperplasia) Chronic kidney disease, stage 3 Atherosclerosis of coronary artery of [place] heart without angina pectoris Hyperlipidemia Lower extremity [...] 4 doses of apixaban, Eliquis Print Language: Swiss Disposition Disposition: Home, Self Care What to do if you have Problems For any increased pain, shortness of breath, bleeding, nausea or vomiting, chestpain, or any unexpected problems, contact your Primary Care Provider. Call [facility] ([phone]) or report to the closest Emergency Room. Call 911 if necessary. 03/15/25 1822 <Electronically signed by Alex Matias MD> Cosigner Signature (if applicable): CC: Dr. Tonio Fajardo DO ~ Signed [facility] Work Phone: 1(822) 171-492707-27-2025 Hospital Discharge instructionsAdditional Instructions 1. Hold the next 4 doses of apixaban, Eliquis. 2. Take amoxicillin as prescribed until gone 3. Contact Dr. Vasquez's office in the morning to be seen later this week to have the pack removed.[facility] Work Phone: 1(245) 327-302807-21-2025 Consult note [facility] Medical Records Department [address] [place] [address] Counseling Note - Pharmacy 03/09/25 1457 MR#: [id number] Acct: [id number] Name: PEDRO HILLMAN Rep #:[id number] : 1945 80 From: Mala Diamond PCP: Dr. Tonio Fajardo DO Status:ADM IN Y Location: [place] [id number] 1 [facility] has performed [...] Date _ Mala Amos Signature (if applicable): Date CC: ~ Signed [facility]07-21-2025 Discharge summary Author Deric Lantigua [facility] Note Date/Time March 09, 2025 12:5 2pm [facility] Medical Records Department [address] [place] [address] Discharge Summary 03/09/25 1251 MR#: [id number] Acct: [id number] Name: PEDRO HILLMAN Rep #:[id number] : 1945 80 From: Deric Smith PCP: Dr. Tonio Fajardo DO Status:ADM IN Location: [place] [address] Providers Date of Admission: 03/04/25 Date of Discharge: 03/09/25 Primary Care Physician: Dr. Tonio Fajardo, Consultations 03/04/25 21:21 Consult: Cardiology Routine Consulting Provider: [facility] Reason for Consult: AE CHF, a [...] Code(s): I25.10 - Atherosclerotic heart disease of [place] coronary artery without angina pectoris Qualifiers: Coronary Disease-Associated Artery/Lesion type: [place] artery Hughes vs. transplanted heart: [place] heart Associated angina: without angina Qualified Code(s): I25.10 - Atherosclerotic heart disease of [place] coronary artery without angina pectoris (3) Chronic anticoagulation: Status: Acute Code(s): Z79.01 - FDC (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 of anticoagulants Plan 80-year-old gentleman [...] no significant delta change. ACS ruled out. Compliance Consultant is consulted. Repeat proBNP is elevated but it does not reflect treatment response as it should not be ordered for that. Clinically patient is feeling better with improvement in shortness of breath. 2D echo 03/05 reported EF 55%, PASP 42 mmHg with moderate TR, moderate MN and mild PI. 03/06: Furosemide changed to 40 g daily. Patient is over diuresed. 03/07 hold Lasix. 03/08: Mild leg swelling. Maureen wrap bandage ordered 03/09: Continue Maureen wrap bandage at home. 2. EKG evidence of Atrial Flutter; with Rapid Ventricular Response of ~117 bpm even after being treated with IV Cardizem bolus probably precipitating CHF exacerbation: Patient already on apixaban patient had digoxin. TSH 3.7 normal. Twelve-lead EKG individually reviewed and shows atrial flutter 2 is to 1 conduction. Later on irregular variable conduction on property assessment monitor 03/06: Discussed with the knot bumper. Metoprolol increased to 25 mg twice daily, [...] pressure in the 90s. Discussed with the knot bumper. Advised to discontinue to discontinue metoprolol and [...] the CODE STATUS. 03/09: Discussed with the knot bumper.Patient heart rate controlled in 70s. Yesterday rate was in 80s. Patient tolerated Cardizem 30 mg every 8 hourly therefore discharged on Cardizem CD 120 mg. I called patient's [id number] and explained the medication. Compliance Consultant felt probably does not need even pacemaker. [...] at the right lung base. Reading Location: [facility] Echocardiogram 03/04/25 20:08 Interpretation Summary Moderate [...] in right lung base aeration. [facility] Medications at Discharge Home Medications insulin glargine [...] 03/05/25 14:17 SB (Rec: 03/05/25 14:17 SB [id number]) Nutrition Malnutrition Evidence of Yes Malnutrition Exists [...] (Auto) 72.6 H, Lymph % (Auto) 9.7L, [place] % (Auto) 12.1 H, Eos % (Auto) [...] Self Care Charges/Coding Visit Charges Inpatient E&M: 06319 Disch Hosp >30min 03/09/25 1252 <Electronically signed by Deric Lantigua MD> Cosigner Signature (if applicable): CC: Dr. Tonio Fajardo DO; Dr. Willian Glaser MD; Dr. Deric Lantigua MD~ Signed [facility] Work Phone: 1(762) 991-879207-21-2025 Discharge summary Author Deric Lantigua [facility] Note Date/Time March 09, 2025 12:4 4pm [facility] Medical Records Department [address] [place] [address] Instructions for Home/Discharge Instructions 03/09/25 1031 MR#: [id number] Acct: [id number] Name: PEDRO HILLMAN Rep #:[id number] : 1945 80 From: Deric Smith PCP: Dr. Tonio Scotty, DO Status:ADM IN Discharge Instructions DC O2, [...] Qty: 90 3RF Referrals / Follow Up: sIsa Looney MD [Med Staff - Active Staff] [...] MD; RICKIE Kumari; RICKIE Cummins ~ Signed [facility] Work Phone: 1(387) 864-777407-21-2025 Hospital Discharge instructionsAdditional Instructions Discharge with Claudio catheter. [facility]: [facility]: 1(721) 432-239807-21-2025 Discharge summary [facility] Medical Records Department [address] [place] [address] Discharge Summary 03/09/25 1251 MR#: [id number] Acct: [id number] Name: PEDRO HILLMAN Rep #:[id number] : 1945 80 From: Deric Smith PCP: Dr. Tonio Fajardo DO Status:ADM IN Location: [place] [id number]- 1 Providers Date of Admission: 03/04/25 Date of Discharge: 03/09/25 Primary Care Physician: Dr. Tonio Fajardo DO Consultations 03/04/25 21:21 Consult: Cardiology Routine Consulting Provider: [facility] Reason for Consult: AE CHF, a [...] Code(s): I25.10 - Atherosclerotic heart disease of [place] coronary artery without angina pectoris Qualifiers: Coronary Disease-Associated Artery/Lesion type: [place] artery Hughes vs. 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 ACS ruled out. Compliance Consultant is consulted. Repeat proBNP is elevated but it does not reflect treatment response as it should not be ordered for that. Clinically patient is feeling better with improvement in shortness of breath. 2D echo 03/05 reported EF 55%, PASP 42 mmHg with moderate TR, moderate MN and mild PI. 03/06: Furosemide changed to 40 g daily. Patient is over diuresed. 03/07 hold Lasix. 03/08: Mild leg swelling. Maureen wrap bandage ordered 03/09: Continue Maureen wrap bandage at home. 2. EKG evidence of Atrial Flutter; with Rapid Ventricular Response of ~117 bpm even after being treated with IV Cardizem bolus probably precipitating CHF exacerbation: Patient already on apixaban patient had digoxin. TSH 3.7 normal. Twelve-lead EKG individually reviewed and shows atrial flutter 2 is to 1 conduction. Later on irregular variable conduction on property assessment monitor 03/06: Discussed with the knot bumper. Metoprolol increased to 25 mg twice daily, Cardizem 60 mg [id number]. If heart rate controlled, will switch to [...] pressure in the 90s. Discussed with the knot bumper. Advised to discontinue to discontinue metoprolol and [...] the CODE STATUS. 03/09: Discussed with the knot bumper.Patient heart rate controlled in 70s. Yesterday rate was in 80s. Patient tolerated Cardizem 30 mg every 8 hourly therefore discharged on Cardizem CD 120 mg. I called patient's [id number] and explained the medication. Compliance Consultant felt probably does not need even pacemaker. [...] at the right lung base. Reading Location: [facility] Echocardiogram 03/04/25 20:08 Interpretation Summary Moderate [...] in right lung base aeration. Reading Location: [facility] Medications at Discharge Home Medications insulin glargine [...] 03/05/25 14:17 SB (Rec: 03/05/25 14:17 SB [id number]) Nutrition Malnutrition Evidence of Yes Malnutrition Exists [...] (Auto) 72.6 H, Lymph % (Auto) 9.7L, [place] % (Auto) 12.1 H, Eos % (Auto) [...] Staff] - Within 1 Week (Discharged with Claudoi catheter.) Disposition Disposition (needs filled in before D/C Order can be placed): Home, Self Care Charges/Coding Visit Charges Inpatient E&M: 29170 Disch Hosp >30min 03/09/25 1252 Cosigner Signature (if applicable): CC: Dr. Tonio Fajardo DO; Dr. Willian Glaser MD; Dr. Deric Lantigua MD~ Signed [facility]07-21-2025 [facility]07-21-2025 Discharge summary [facility] Medical Records Department [address] [place] [address] Instructions for Home/Discharge Instructions 03/09/25 1031 MR#: [id number] Acct: [id number] Name: PEDRO HILLMAN Rep #:[id number] : 1945 80 From: Deric Smith PCP: [...] Self Care 03/09/25 1244Pmaribel Lantigua MD CC: PLANE RUNNER-Estevan Rodriguez; Dr. Susan Hawley MD; Dr. Paris Tiwari MD; Dr. Marjorie Green MD; Dr. Nicolette Mcdonald MD; Dr. Martin Vivas MD; Dr. Jose Lai MD; Dr. Issa Looney MD; Dr. Nicola Lindsey DO; Dr. Chago Miller MD; Dr. Tonio Fajardo DO; Dr. Willian Glaser MD; Dr. Orly Mitchell MD;Dr. Santos Hsu MD; Dr. Reinaldo Mclain MD; RICKIE Kumari; RICKIE Cummins ~ Signed [facility]07-21-2025 Progress note Author Willian Glaser [facility] Note Date/Time March 09, 2025 9:53 am [facility] Medical Records Department [address] [place] [address] Progress Note - Cardiology 03/09/25 0943 MR#: [id number] Acct: [id number] Name: KADY,PEDRO Nora Rep #:[id number] : 1945 80 From: Willian Glaser MD PCP: Dr. Tonio Fajardo, DO Status:ADM IN Location: [place] [address] Subjective Subjective Patient evaluated in a seated [...] (Auto) 72.6 H, Lymph % (Auto) 9.7L, [place] % (Auto) 12.1 H, Eos % (Auto) [...] 72.6 H, Lymph % (Auto) 9.7 L, [place] % (Auto) 12.1 H, Eos % (Auto) [...] disease: QUALIFIERS: Coronary Disease-Associated Artery/Lesion type: nativeartery Hughes vs. transplanted heart: [place] heart Associated angina: without angina Qualified Code(s): I25.10 - Atherosclerotic heart disease of [place] coronary artery without angina pectoris PLAN: Patient carries a history of bypass graft surgery followed in the [facility]. The patient should be reevaluated in 2 to 4 weeks in the [facility] with advanced practitioner. Given the patient's [...] At discharge patient should follow-up with the [facility] advanced practitioner in 2 to 3 weeks. 4. If further assistance is needed please reconsult the [facility]. Charges/Coding Visit Charges Inpatient E&M: 37364 Subs Hosp L3 03/09/25 0953 <Electronically signed by Willian Glaser MD> Cosigner Signature (if applicable): CC: ~ Signed [facility] Work Phone: 1(645) 525-415007-21-2025 Progress note [facility] Medical Records Department [address] [place] [address] Progress Note - Cardiology 03/09/25 0943 MR#: [id number] Acct: [id number] Name: PEDRO HILLMAN Rep #:[id number] : 1945 80 From: Willian Glaser MD PCP: Dr. Tonio Fajardo, DO Status:ADM IN Location: [place] [address]- Subjective Subjective Patient evaluated in a seated [...] (Auto) 72.6 H, Lymph % (Auto) 9.7L, [place] % (Auto) 12.1 H, Eos % (Auto) [...] 72.6 H, Lymph % (Auto) 9.7 L, [place] % (Auto) 12.1 H, Eos % (Auto) [...] disease: QUALIFIERS: Coronary Disease-Associated Artery/Lesion type: nativeartery Hughes vs. transplanted heart: [place] heart Associated angina: without angina Qualified Code(s): I25.10 - Atherosclerotic heart disease of [place] coronary artery without angina pectoris PLAN: Patient carries a history of bypass graft surgery followed in the [facility]. The patient should be reevaluated in 2 to 4 weeks in the [facility] with advanced practitioner. Given the patient's [...] At discharge patient should follow-up with the [facility] advanced practitioner in 2 to3 weeks. 4. If further assistance is needed please reconsult the [facility]. Charges/Coding Visit Charges Inpatient E&M: 96949 Subs Hosp L3 03/09/25 0953 Cosigner Signature (if applicable): CC: ~ Signed [facility]07-20-2025 Progress note Author Deric [facility] Note Date/Time March 08, 2025 1:34 pm [facility] Medical Records Department [address] [place] [address] Progress Note - Hospitalist 03/08/25 0844 MR#: [id number] Acct: [id number] Name: PEDRO HILLMAN Rep #:[id number] : 1945 80 From: Deric Smith PCP: Dr. Tonio Fajardo, DO Status:ADM IN Location: [place] [address] 1 Reason for Visit Chief Complaint: SOB. [...] 03/05/25 14:17 SB (Rec: 03/05/25 14:17 SB [id number]) Nutrition Malnutrition Evidence of Yes Malnutrition Exists [...] also sustained 11 beats of V. tach. night monitor reviewed. Still in A-fib/flutter with bradycardia. [...] hematuria: (8) Atherosclerosis of coronary artery of [place] heart without angina pectoris: QUALIFIERS: Coronary Disease-Associated Artery/Lesion type: nativeartery Qualified Code(s): I25.10 - Atherosclerotic heart disease of [place] coronary artery without angina pectoris (9) Overweight [...] no significant delta change. ACS ruled out. Compliance Consultant is consulted. Repeat proBNP is elevated but it does not reflect treatment response as it should not be ordered for that. Clinically patient is feeling better with improvement in shortness of breath. 2D echo 03/05 reported EF 55%, PASP 42 mmHg with moderate TR, moderate MN and mild PI. 03/06: Furosemide changed to 40 g daily. Patient is over diuresed. 03/07 hold Lasix. 03/08: Mild leg swelling. Maureen wrap bandage ordered 2. EKG evidence of Atrial Flutter; with Rapid Ventricular Response of ~117 bpm even after being treated with IV Cardizem bolus probably precipitating CHF exacerbation: Patient already on apixaban patient had digoxin. TSH 3.7 normal. Twelve-lead EKG individually reviewed and shows atrial flutter 2 is to 1 conduction. Later on irregular variable conduction on property assessment monitor 03/06: Discussed with the knot bumper. Metoprolol increased to 25 mg twice daily, [...] pressure in the 90s. Discussed with the knot bumper. Advised to discontinue to discontinue metoprolol and [...] at the right lung base. Reading Location: [facility] Echocardiogram 03/04/25 20:08 Interpretation Summary Moderate [...] in right lung base aeration. Reading Location: [place] [address] Charges/Coding Addendum Addendum: Total time of the visit including total time spent in counseling or coordinationof care, (more than 50% of the total time, spent in obtaining medical information from nurses and other ancillary care providers ,explaining to the patient about labs, imaging, diagnosis and management of active complex medical conditions), multiple active cardiac issues, urinary retention discussion with knot bumper and clinical update given to patient's huyhehvi-xm-lpu, review of labs and imaging is 35 minutes. Visit Charges Inpatient E&M: 89069 [facility] Hosp 03/08/25 1040 <Electronically signed by Deric Lantigua MD> Cosigner Signature (if applicable): CC: ~ Signed ADDENDUM by Dr. Deric Lantigua MD on 03/08/25 at 1334 Addendum The patient's son and einlcegm-zt-uor came to visit him. They decided patient to be DNR CC arrest with no intubation CODE STATUS changed. Living will/advanced directive/end of life care: Patient does not have living will or advanced directive. He is next of kin is his son and mvijttsx-lv-mke. After discussion of benefits/risks procedures involved with full code, DNR CC arrest and DNR CC, the patient and his fzjszucw-fr-tcb he opted for DNR CC arrest with no intubation. Patient also said that he does not want pacemaker but his nwrxkupr-ap-aoc and son will discuss with him Patient does want artificial life support including intubation, tube feed, ventilator and/chest compression, central venous catheter, vasopressor and DC shock if needed Total time spent in nzpi-wm-fons encounter in discussion of advanced directive 17 minutes. 03/08/25 1334<Electronically signed by Deric Lantigua MD> Cosigner Signature (if applicable): cc: ~* Signed [facility] Work Phone: 1(226) 716-542907-20-2025 Progress note [facility] Medical Records Department [address] [place] [address] Progress Note - Hospitalist 03/08/25 0844 MR#: [id number] Acct: [id number] Name: PEDRO HILLMAN Rep #:[id number] : 1945 80 From: Deric Smith PCP: Dr. Tonio Fajardo, DO Status:ADM IN Location: [place] [address] Reason for Visit Chief Complaint: SOB. Objective [...] 03/05/25 14:17 SB (Rec: 03/05/25 14:17 SB [id number]) Nutrition Malnutrition Evidence of Yes Malnutrition Exists [...] Patient alsosustained 11 beats of V. tach. night monitor reviewed. Still in A-fib/flutter with bradycardia. [...] hematuria: (8) Atherosclerosis of coronary artery of [place] heart without angina pectoris: QUALIFIERS: Coronary Disease-Associated Artery/Lesion type: nativeartery Qualified Code(s): I25.10 - Atherosclerotic heart disease of [place] coronary artery without angina pectoris (9) Overweight [...] no significant delta change. ACS ruled out. Compliance Consultant is consulted. Repeat proBNP is elevated but it does not reflect treatment response as it should not be ordered for that. Clinically patient is feeling better with improvement in shortness of breath. 2D echo 03/05 reported EF 55%, PASP 42 mmHg with moderate TR, moderate MN and mild PI. 03/06: Furosemide changed to 40 g daily. Patient is over diuresed. 03/07 hold Lasix. 03/08: Mild leg swelling. Maureen wrap bandage ordered 2. EKG evidence of Atrial Flutter; with Rapid Ventricular Response of ~117 bpm even after being treated with IV Cardizem bolus probably precipitating CHF exacerbation: Patient already on apixaban patient had digoxin. TSH 3.7 normal. Twelve-lead EKG individually reviewed and shows atrial flutter 2 is to 1 conduction. Later on irregular variable conduction on property assessment monitor 03/06: Discussed with the knot bumper. Metoprolol increased to 25 mg twice daily, Cardizem 60 mg A2ziojba. If heart rate controlled, will switch to [...] pressure in the 90s. Discussed with the knot bumper. Advised to discontinue to discontinue metoprolol and [...] at the right lung base. Reading Location: [facility] Echocardiogram 03/04/25 20:08 Interpretation Summary Moderate [...] in right lung base aeration. Reading Location: [place] [address] Charges/Coding Addendum Addendum: Total time of the visit including total time spent in counseling or coordinationof care, (more than50% of the total time, spent in obtaining medical information from nurses and other ancillary care providers ,explaining to the patient about labs, imaging, diagnosis and management of active complexmedical conditions), multiple active cardiac issues, urinary retention discussion with cardiologistand clinical update given to patient's zioyxovl-qn-itt, review of labs and imaging is 35 minutes. Visit Charges Inpatient E&M: 95327 Subs Hosp L3 03/08/25 1040 Cosigner Signature (if applicable): CC: ~ Signed ADDENDUM by Dr. Deric Lantigua MD on 03/08/25 at 1334 Addendum The patient's son and vjnthufb-zh-dug came to visit him. They decided patient to be DNR CC arrest with no intubation CODE STATUS changed. Living will/advanced directive/end of life care: Patient does not have living will or advanced directive. He is next of kin is his son and wvsjjeuc-ip-ykk. After discussion of benefits/risks procedures involved with full code, DNR CC arrest and DNR CC, the patient and his mpoxfnyx-rv-gzj he opted for DNR CC arrest with no intubation. Patient also said that he does not want pacemaker but his tqxtmevv-cm-oem and son will discuss with him Patient does want artificial life support including intubation, tube feed, ventilator and/chest compression, central venous catheter, vasopressor and DC shock if needed Total time spent in hmsb-vj-qjrd encounter in discussion of advanced directive 17 minutes. 03/08/25 1334 Cosigner Signature (if applicable): cc: ~* Signed [facility]07-20-2025 Progress note Author Marjorie Green [facility] Note Date/Time March 08, 2025 8:51 am [facility] Medical Records Department [address] [place] [address] Progress Note - Cardiology 03/08/25 0848 MR#: [id number] Acct: [id number] Name: PEDRO HILLMAN Rep #:[id number] : 1945 80 From: Marjorie Green MD PCP: Dr. Tonio Fajardo, DO Status:ADM IN Location: [place] [address] Subjective Subjective Denies any complaints. Became bradycardic [...] Cosigner Signature (if applicable): CC: ~ Signed [facility] Work Phone: 1(800) 735-326107-20-2025 Progress note [facility] Medical Records Department [address] [place] [address] Progress Note - Cardiology 03/08/25 0848 MR#: [id number] Acct: [id number] Name: PEDRO HILLMAN Nora Rep #:[id number] : 1945 80 From: Marjorie Green MD PCP: Dr. Tonio Fajardo, DO Status:ADM IN Location: [place] [address] Subjective Subjective Denies any complaints. Became bradycardic [...] Cosigner Signature (if applicable): CC: ~ Signed [facility]07-19-2025 Progress note Author Deric Lantigua [facility] Note Date/Time March 07, 2025 1:51 pm [facility] Medical Records Department [address] [place] [address] Progress Note - Hospitalist 03/07/25 1342 MR#: [id number] Acct: [id number] Name: PEDRO HILLMAN Rep #:[id number] : 1945 80 From: Deric Smith PCP: Dr. Tonio Fajardo, DO Status:ADM IN Location: [place] [address] Reason for Visit Chief Complaint: SOB. Objective [...] 03/05/25 14:17 SB (Rec: 03/05/25 14:17 SB [id number]) Nutrition Malnutrition Evidence of Yes Malnutrition Exists [...] low 108/34 but improved to 129 systolic. night monitor reviewed. Still in A-fib/flutter. Shortness of [...] hematuria: (8) Atherosclerosis of coronary artery of [place] heart without angina pectoris: QUALIFIERS: Coronary Disease-Associated Artery/Lesion type: nativeartery Qualified Code(s): I25.10 - Atherosclerotic heart disease of [place] coronary artery without angina pectoris (9) Overweight [...] no significant delta change. ACS ruled out. Compliance Consultant is consulted. Repeat proBNP is elevated but it does not reflect treatment response as it should not be ordered for that. Clinically patient is feeling better with improvement in shortness of breath. 2D echo 03/05 reported EF 55%, PASP 42 mmHg with moderate TR, moderate MN and mild PI. 03/06: Furosemide changed to [...] conduction. Later on irregular variable conduction on property assessment monitor 03/06: Discussed with the knot bumper. Metoprolol increased to 25 mg twice daily, [...] at the right lung base. Reading Location: [facility] Echocardiogram 03/04/25 20:08 Interpretation Summary Moderate [...] in right lung base aeration. Reading Location: [place] [address] Charges/Coding Visit Charges Inpatient E&M: 65695 Subs Hosp L2 03/07/25 135 <Electronically signed by Deric Lantigua MD> Cosigner Signature (if applicable): CC: ~ Signed [facility] Work Phone: 1(399) 390-624007-19-2025 Progress note [facility] Medical Records Department [address] [place] [address] Progress Note - Hospitalist 03/07/25 1342 MR#: [id number] Acct: [id number] Name: PEDRO HILLMAN Rep #:[id number] : 1945 80 From: Deric Smith PCP: Dr. Tonio Fajardo, DO Status:ADM IN Location: [place] [address] Reason for Visit Chief Complaint: SOB. Objective [...] 03/05/25 14:17 SB (Rec: 03/05/25 14:17 SB [id number]) Nutrition Malnutrition Evidence of Yes Malnutrition Exists [...] low 108/34 but improved to 129 systolic. night monitor reviewed. Still in A-fib/flutter. Shortness of [...] hematuria: (8) Atherosclerosis of coronary artery of [place] heart without angina pectoris: QUALIFIERS: Coronary Disease-Associated Artery/Lesion type: nativeartery Qualified Code(s): I25.10 - Atherosclerotic heart disease of [place] coronary artery without angina pectoris (9) Overweight [...] no significant delta change. ACS ruled out. Compliance Consultant is consulted. Repeat proBNP is elevated but it does not reflect treatment response as it should not be ordered for that. Clinically patient is feeling better with improvement in shortness of breath. 2D echo 03/05 reported EF 55%, PASP 42 mmHg with moderate TR, moderate MN and mild PI. 03/06: Furosemide changed to [...] conduction. Later on irregular variable conduction on property assessment monitor 03/06: Discussed with the knot bumper. Metoprolol increased to 25 mg twice daily, Cardizem 60 mg U0dchhaw. If heart rate controlled, will switch to [...] at the right lung base. Reading Location: [facility] Echocardiogram 03/04/25 20:08 Interpretation Summary Moderate [...] in right lung base aeration. Reading Location: [place] [address] Charges/Coding Visit Charges Inpatient E&M: 79417 [facility] Hosp L2 03/07/25 1351 Cosigner Signature (if applicable): CC: ~ Signed [facility]07-18-2025 Progress note Author Deric Lantigua [facility] Note Date/Time March 06, 2025 3:46 pm [facility] Medical Records Department [address] [place] [address] Progress Note - Hospitalist 03/06/25 1540 MR#: [id number] Acct: [id number] Name: PEDRO HILLMAN Rep #:[id number] : 1945 80 From: Deric Smith PCP: Dr. Tonio Fajardo, DO Status:ADM IN Location: [id number]- 1 Reason for Visit Chief Complaint: SOB. [...] 03/05/25 14:17 SB (Rec: 03/05/25 14:17 SB [id number]) Nutrition Malnutrition Evidence of Yes Malnutrition Exists [...] is improved. Still in A-fib/flutter with heart [id number]. Shortness of breath is better. Did not [...] hematuria: (8) Atherosclerosis of coronary artery of [place] heart without angina pectoris: QUALIFIERS: Coronary Disease-Associated Artery/Lesion type: nativeartery Qualified Code(s): I25.10 - Atherosclerotic heart disease of [place] coronary artery without angina pectoris (9) Overweight [...] and bibasilar atelectasis worse at [facility] lung base Maintain metoprolol and lisinopril as before. 03/05: Heart failure core measures including intake and output, fluid restrictionless than 1500 mL, daily weight monitoring, kidney and electrolytes monitoring. On furosemide 40 mg twice daily. Serial troponins 44, 45 and 42 therefore no significant delta change. ACS ruled out. Compliance Consultant is consulted. Repeat proBNP is elevated but it does not reflect treatment response as it should not be ordered for that. Clinically patient is feeling better with improvement in shortness of breath. 2D echo 03/05 reported EF 55%, PASP 42 mmHg with moderate TR, moderate MN and mild PI. 03/06: Furosemide changed to [...] conduction. Later on irregular variable conduction on property assessment monitor 03/06: Discussed with the knot bumper. Metoprolol increased to 25 mg twice daily, [...] at the right lung base. Reading Location: [facility] Echocardiogram 03/04/25 20:08 Interpretation Summary Moderate [...] in right lung base aeration. Reading Location: [place] [address] Charges/Coding Visit Charges Inpatient E&M: 96277 Subs Hosp L2 03/06/25 1546 <Electronically signed by Deric Lantigua MD> Cosigner Signature (if applicable): CC: ~ Signed [facility] Work Phone: 1(239) 514-611007-18-2025 Progress note [facility] Medical Records Department [address] [place] [address] Progress Note - Hospitalist 03/06/25 1540 MR#: [id number] Acct: [id number] Name: PEDRO HILLMAN Rep #:[id number] : 1945 80 From: Deric Smith PCP: Dr. Tonio Fajardo, DO Status:ADM IN Location: [address] 1 Reason for Visit Chief Complaint: [...] 03/05/25 14:17 SB (Rec: 03/05/25 14:17 SB [id number]) Nutrition Malnutrition Evidence of Yes Malnutrition Exists [...] is improved. Still in A-fib/flutter with heart [id number]. Shortness of breath is better. Did not [...] hematuria: (8) Atherosclerosis of coronary artery of [place] heart without angina pectoris: QUALIFIERS: Coronary Disease-Associated Artery/Lesion type: nativeartery Qualified Code(s): I25.10 - Atherosclerotic heart disease of [place] coronary artery without angina pectoris (9) Overweight [...] no significant delta change. ACS ruled out. Compliance Consultant is consulted. Repeat proBNP is elevated but it does not reflect treatment response as it should not be ordered for that. Clinically patient is feeling better with improvement in shortness of breath. 2D echo 03/05 reported EF 55%, PASP 42 mmHg with moderate TR, moderate MN and mild PI. 03/06: Furosemide changed to [...] conduction. Later on irregular variable conduction on property assessment monitor 03/06: Discussed with the knot bumper. Metoprolol increased to 25 mg twice daily, Cardizem 60 mg [id number]. If heart rate controlled, will switch to [...] at the right lung base. Reading Location: [facility] Echocardiogram 03/04/25 20:08 Interpretation Summary Moderate [...] in right lung base aeration. Reading Location: [place] [address] Charges/Coding Visit Charges Inpatient E&M: 42759 Subs Hosp L2 03/06/25 1546 Cosigner Signature (if applicable): CC: ~ Signed [facility]07-18-2025 Consult note Author Marjorie Green [facility] Note Date/Time March 06, 2025 9:33 am [facility] Medical Records Department [address] [place] [address] Consultation - Cardiology 03/06/25925 MR#: [id number] Acct: [id number] Name: PEDRO HILLMAN Rep #:[id number] : 1945 80 From: Marjorie Green MD PCP: Dr. Tonio Fajardo, DO Status:ADM IN Location: [place] [id number]- [id number] Assessment & Plan Assessment/Plan (1) Atrial [...] coronary artery disease status post CABG in 2013, HFpEF, atrial flutter, peripheral arterial [...] his shortness of breath is much improved. [facility] Medical History (Updated 03/06/25 @ 09:[address] Marjorie Green MD) Other persistent atrial fibrillation New onset atrial flutter COVID Wears hearing aid in both ears Former smoker Coronary artery disease Peripheral vascular occlusive disease BPH (benign prostatic hyperplasia) Chronic kidney disease, stage 3 Atherosclerosis of coronary artery of [place] heart without angina pectoris Hyperlipidemia Lower extremity [...] Signature (if applicable): CC: Dr. Tonio Fajardo DO~ Signed [facility] Work Phone: 1(705) 775-439607-18-2025 Consult note [facility] Medical Records Department [address] [place] [address] Consultation - Cardiology 03/06/25 09 MR#: [id number] Acct: [id number] Name: PEDRO HILLMAN Nora Rep #:[id number] : 1945 80 From: Marjorie Green MD PCP: Dr. Tonio Fajardo DO Status:ADM IN Location: [place] [address] Assessment & Plan Assessment/Plan (1) Atrial flutter [...] his shortness of breath is much improved. [facility] Medical History (Updated 03/06/25 @ 09:[address] Marjorie Green MD) Other persistent atrial fibrillation New onset atrial flutter COVID Wears hearing aid in both ears Former smoker Coronary artery disease Peripheral vascular occlusive disease BPH (benign prostatic hyperplasia) Chronic kidney disease, stage 3 Atherosclerosis of coronary artery of [place] heart without angina pectoris Hyperlipidemia Lower extremity [...] Signature (if applicable): CC: Dr. Tonio Fajardo DO~ Signed [facility]07-17-2025 Progress note Author Deric Latnigua [facility] Note Date/Time March 05, 2025 3:56 pm [facility] Medical Records Department [address] [place] [address] Progress Note - Hospitalist 03/05/25 0719 MR#: [id number] Acct: [id number] Name: PEDRO HILLMAN Rep #:[id number] : 1945 80 From: Deric Smith PCP: Dr. Tonio Fajardo, DO Status:ADM IN Location: [place] [address] Reason for Visit Chief Complaint: SOB. Objective [...] 78.1 H, Lymph % (Auto) 10.1 L, [place] % (Auto) 9.1, Eos % (Auto) 1.6, [...] Clarity Cloudy, Urine pH 6.5, Ur Specific [place] 1.010, Urine Protein 100 H, Urine Glucose [...] (Auto) 76.4 H, Lymph % (Auto) 9.5L, [place] % (Auto) 11.4 H, Eos % (Auto) [...] at the right lung base. Reading Location: [facility] Chest X-Ray 03/05/25 04:30 IMPRESSION: Small interval improvement in right lung base aeration. Reading Location: [facility] Rhythm Strip Rhythm Strip: Atrial flutter Rate: [...] hematuria: (8) Atherosclerosis of coronary artery of [place] heart without angina pectoris: QUALIFIERS: Coronary Disease-Associated Artery/Lesion type: nativeartery Qualified Code(s): I25.10 - Atherosclerotic heart disease of [place] coronary artery without angina pectoris (9) Overweight [...] no significant delta change. ACS ruled out. Compliance Consultant is consulted. Repeat proBNP is elevated but it does not reflect treatment response as it should not be ordered for that. Clinically patient is feeling better with improvement in shortness of breath. 2D echo 03/05 reported EF 55%, PASP 42 mmHg with moderate TR, moderate MN and mild PI. 2. EKG evidence of Atrial Flutter; with Rapid Ventricular Response of ~117 bpm even after being treated with IV Cardizem bolus probably precipitating CHF exacerbation: Patient already on apixaban patient had digoxin. TSH 3.7 normal. Twelve-lead EKG individually reviewed and shows atrial flutter 2 is to 1 conduction. Later on irregular variable conduction on property assessment monitor 3. CKD; stage IIIb with hyperkalemia, [...] Clarity Cloudy, Urine pH 6.5, Ur Specific [place] 1.010, Urine Protein 100 H, Urine Glucose [...] (Auto) 76.4 H, Lymph % (Auto) 9.5L, [place] % (Auto) 11.4 H, Eos % (Auto) [...] at the right lung base. Reading Location: [facility] Echocardiogram 03/04/25 20:08 Interpretation Summary Moderate [...] in right lung base aeration. Reading Location: [place] [address] Charges/Coding Addendum Addendum: Total time of the [...] imagingis 35 minutes. Visit Charges Inpatient E&M: 49105 Subs Hosp L3 03/05/25 5334 <Electronically signed by Deric Lantigua MD> Cosigner Signature (if applicable): CC: ~ Signed [facility] Work Phone: 1(405) 147-354907-17-2025 Progress note [facility] Medical Records Department [address] [place] [address] Progress Note - Hospitalist 03/05/25 0719 MR#: [id number] Acct: [id number] Name: PEDRO HILLMAN Rep #:[id number] : 1945 80 From: Deric Smith PCP: Dr. Tonio Fajardo, DO Status:ADM IN Location: [place] [id number]- [id number] Reason for Visit Chief Complaint: SOB. [...] 78.1 H, Lymph % (Auto) 10.1 L, [place] % (Auto) 9.1, Eos % (Auto) 1.6, [...] Clarity Cloudy, Urine pH 6.5, Ur Specific [place] 1.010, Urine Protein 100 H, Urine Glucose [...] (Auto) 76.4 H, Lymph % (Auto) 9.5L, [place] % (Auto) 11.4 H, Eos % (Auto) [...] at the right lung base. Reading Location: [facility] Chest X-Ray 03/05/25 04:30 IMPRESSION: Small interval improvement in right lung base aeration. Reading Location: [place] [address] Rhythm Strip Rhythm Strip: Atrial flutter Rate: [...] hematuria: (8) Atherosclerosis of coronary artery of [place] heart without angina pectoris: QUALIFIERS: Coronary Disease-Associated Artery/Lesion type: nativeartery Qualified Code(s): I25.10 - Atherosclerotic heart disease of [place] coronary artery without angina pectoris (9) Overweight [...] no significant delta change. ACS ruled out. Compliance Consultant is consulted. Repeat proBNP is elevated but it does not reflect treatment response as it should not be ordered for that. Clinically patient is feeling better with improvement in shortness of breath. 2D echo 03/05 reported EF 55%, PASP 42 mmHg with moderate TR, moderate MN and mild PI. 2. EKG evidence of Atrial Flutter; with Rapid Ventricular Response of ~117 bpm even after being treated with IV Cardizem bolus probably precipitating CHF exacerbation: Patient already on apixaban patient had digoxin. TSH 3.7 normal. Twelve-lead EKG individually reviewed and shows atrial flutter 2 is to 1 conduction. Later on irregular variable conduction on property assessment monitor 3. CKD; stage IIIb with hyperkalemia, [...] Clarity Cloudy, Urine pH 6.5, Ur Specific [place] 1.010, Urine Protein 100 H, Urine Glucose [...] (Auto) 76.4 H, Lymph % (Auto) 9.5L, [place] % (Auto) 11.4 H, Eos % (Auto) [...] at the right lung base. Reading Location: [facility] Echocardiogram 03/04/25 20:08 Interpretation Summary Moderate [...] in right lung base aeration. Reading Location: [place] [address] Charges/Coding Addendum Addendum: Total time of the [...] imagingis 35 minutes. Visit Charges Inpatient E&M: 34627 Subs Hosp 03/05/25 1555 Cosigner Signature (if applicable): CC: ~ Signed [facility]07-17-2025 History and physical note Author Nicola Madison [facility] Note Date/Time March 05, 2025 6:22 am [facility] Medical Records Department [address] [place] [address] H&P Exam - Hospitalist 03/04/251921 MR#: [id number] Acct: [id number] Name: KADYPEDRO Nora Rep #:[id number] : 1945 80 From: Nicola Levy DO PCP: Dr. Tonio Fajardo, DO Status:ADM IN Location: [place] [id number]- HPI - General General Date of Admission: 03/04/25 Date of Service: 03/04/25 Chief Complaint: SOB. HPI Narrative PEDRO ROWLANDWELL, is a 80 M with a past [...] of COVID-19 and OA who presents to [facility] ER complaining of SOB. Mr. Hillman [...] ~53% with moderate mitral annular calcification and vxfx-dr-fxudzlab (~1-2+) mitral valve insufficiency with a pulmonary [...] is expected to extend beyond 2 midnights. [facility] Medical History Other persistent atrial fibrillation New onset atrial flutter COVCOLETTE Wears hearing aid in both ears Former smoker Coronary artery disease Peripheral vascular occlusive disease BPH (benign prostatic hyperplasia) Chronic kidney disease, stage 3 Atherosclerosis of coronary artery of [place] heart without angina pectoris Hyperlipidemia Lower extremity [...] 78.1 H, Lymph % (Auto) 10.1 L, [place] % (Auto) 9.1, Eos % (Auto) 1.6, [...] at the right lung base. Reading Location: [facility] Assessment & Plan Assessment/Plan (1) CHF exacerbation: QUALIFIERS: Heart failure type: unspecified Qualified Code(s): I50.9 - Heart failure, unspecified (2) Atrial flutter with rapid ventricular response: (3) Chronic anticoagulation: (4) Elevated troponin: (5) Hyperkalemia: (6) Pleural effusion on right: (7) Acute cystitis with hematuria: (8) Atherosclerosis of coronary artery of [place] heart without angina pectoris: QUALIFIERS: Coronary Disease-Associated Artery/Lesion type: nativeartery Qualified Code(s): I25.10 - Atherosclerotic heart disease of [place] coronary artery without angina pectoris (9) Overweight [...] LVEF. Serialize troponin. Finally, we will consult [facility] see this patient on rounds [...] 75 minutes. Charges/Coding Visit Charges Inpatient E&M: 85237 Init Hosp L3 03/05/25 0622 <Electronically signed by Nicola Lindsey DO> Cosigner Signature (if applicable): CC: Dr. Nicola Lindsey DO; Dr. Tonio Fajardo DO~ Signed [facility] Work Phone: 1(262) 571-564607-17-2025 History and physical note [facility] Medical Records Department [address] [place] [address] H&P Exam - Hospitalist 03/04/251921 MR#: [id number] Acct: [id number] Name: PEDRO HILLMAN Noar Rep #:[id number] : 1945 80 From: Nicola Levy DO PCP: Dr. Tonio Fajardo DO Status:ADM IN Location: [facility]- 1 HPI - General General Date of [...] of COVID-19 and OA who presents to [facility] ERcomplaining of SOB. Mr. Hillman reports [...] ~53% with moderate mitral annular calcification and dgnd-jx-hugynhdu (~1-2+) mitral valve insufficiency with a pulmonary [...] is expected to extend beyond 2 midnights. [facility] Medical History Other persistent atrial fibrillation New onset atrial flutter DIMA Wears hearing aid in both ears Former smoker Coronary artery disease Peripheral vascular occlusive disease BPH (benign prostatic hyperplasia) Chronic kidney disease, stage 3 Atherosclerosis of coronary artery of [place] heart without angina pectoris Hyperlipidemia Lower extremity [...] 78.1 H, Lymph % (Auto) 10.1 L, [place] % (Auto) 9.1, Eos % (Auto) 1.6, [...] at the right lung base. Reading Location: [facility] Assessment & Plan Assessment/Plan (1) CHF exacerbation: QUALIFIERS: Heart failure type: unspecified Qualified Code(s): I50.9 - Heart failure, unspecified (2) Atrial flutter with rapid ventricular response: (3) Chronic anticoagulation: (4) Elevated troponin: (5) Hyperkalemia: (6) Pleural effusion on right: (7) Acute cystitis with hematuria: (8) Atherosclerosis of coronary artery of [place] heart without angina pectoris: QUALIFIERS: Coronary Disease-Associated Artery/Lesion type: nativeartery Qualified Code(s): I25.10 - Atherosclerotic heart disease of [place] coronary artery without angina pectoris (9) Overweight [...] LVEF. Serialize troponin. Finally, we will consult [facility] see this patient on rounds [...] 75 minutes. Charges/Coding Visit Charges Inpatient E&M: 20380 Init Hosp L3 03/05/25 0622 Cosigner Signature (if applicable): CC: Dr. Nicola Lindsey DO; Dr. Tonio Fajardo DO~ Signed [facility]07-17-2025 Radiology Diagnostic study note [facility] Imaging Services [address] [place] [address] Chest 1 View (Portable) MR#: [id number] Acct: [id number] Name: PEDRO HILLMAN Rep #: [id number] : 1945 M 80 From: Regi Babb MD PCP: Dr. Tonio Fajardo DO Status: ADM IN Study:Chest 1 View (Portable) Date of Exam: 03/05/25 Exam# [id number] Ordering Dr: Nicola Mukherjee DO PROCEDURE: CHEST [...] in right lung base aeration. Reading Location: [facility] CC: Dr. Nicola Lindsey DO; Dr. Tonio Fajardo DO ~ Infrastructure Analyst: Signed [facility]07-16-2025 Evaluation note* Diagnosis Onset Date Resolution Status Admit Date Acute cystitis with hematuria acute March 04, 2025 7:57pm Atrial flutter with rapid ventricular response acute March 04, 2025 7:57pm Chronic anticoagulation acute 2024 7:57pm Coronary artery disease acute 2024 7:57pm Diabetes acute March 04 7:57pm [...] 042024 7:57pm Atherosclerosis of coronary artery of [place] heart without angina pectoris chronic March 04, 2025 7:57pm CHF exacerbation chronic February 7:57pm Hypertension chronic March 04, 2 025 7:57pm [facility] Work Phone: 1(637) 775-143607-16-2025 Evaluation note* Diagnosis Onset Date Resolution Status Admit Date Acute cystitis with hematuria acute March 04, 2025 7:57pm Atrial flutter with rapid ventricular response acute March 04, 2025 7:57pm Chronic anticoagulation acute 2024 7:57pm Coronary artery disease acute 2024 7:57pm Diabetes acute March 04 7:57pm [...] 042024 7:57pm Atherosclerosis of coronary artery of [place] heart without angina pectoris chronic March 04, 2025 7:57pm CHF exacerbation chronic February 7:57pm Hypertension chronic March 04, 7:57pm Peripheral arterial disease inactive March 04, 2025 7:57pm Other persistent atrial fibrillation acute March 17, 2025 12:51pm Hyperlipidemia chronic March 17, 2025 12:51pm Hypertension chronic March 17 12:51pm Peripheral vascular occlusiv e disease chronic March 17, 2025 12:51pm 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 March 17, 2025 12:51pm [facility] Work Phone: 1(196) 788-497507-16-2025 Evaluation note* Diagnosis Onset Date Resolution Status Admit Date Acute cystitis with hematuria acute March 04, 2025 7:57pm Atrial flutter with rapid ventricular response acute March 04, 2025 7:57pm Chronic anticoagulation acute 2024 7:57pm Coronary artery disease acute 2024 7:57pm Diabetes acute March 04 7:57pm [...] 042024 7:57pm Atherosclerosis of coronary artery of [place] heart without angina pectoris chronic March 04, 2025 7:57pm CHF exacerbation chronic February 7:57pm Hypertension chronic March 04 7:57pm Peripheral arterial disease inactive March 04, 2025 7:57pm Other persistent atrial fibrillation acute March 17, 2025 12:51pm Hyperlipidemia chronic March 17, 2025 12:51pm Hypertension chronic March 17 12:51pm Peripheral vascular occlusiv e disease chronic March 17, 2025 12:51pm 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March 17, 2025 12:51pm Elevated troponin acute April 05, 2025 7:55pm Hyperkalemia acute April 05, 2025 7:55pm Overweight (BMI 25.0-29.9) acute April 05, 2025 7:55pm Respiratory insufficiency acute April 05, 2025 7:55pm Acute on chronic diastolic congestive heart failure chronic April 05, 2025 7:55pm Chronic atrial fibrillation chronic April 05, 2025 7:55pm 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April 05 7:55pm [facility] Work Phone: 1(184) 953-659707-16-2025 Evaluation note* Diagnosis Onset Date Resolution Status [...] 042024 7:57pm Atherosclerosis of coronary artery of [place] heart without angina pectoris chronic March 04, 2025 7:57pm CHF exacerbation chronic February 7:57pm Hypertension chronic March 04, 025 7:57pm Peripheral arterial disease inactive March 04, 2025 7:57pm Other persistent atrial fibrillation acute March 17, 2025 12:51pm Hyperlipidemia chronic March 17, 2025 12:51pm Hypertension chronic March 17 12:51pm Peripheral vascular occlusiv e disease chronic March 17, 2025 12:51pm 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 March 17, 2025 12:51pm Acute cystitis without hematuria acu te April 05, 2025 7:55pm DARIUSZ (acute kidney injury) acute April 05, 2025 7:55pm Chronic anticoagulation acute A ugust 2024 7:55pm Coronary artery disease acute A ugust 2024 7:55pm Elevated troponin acute April 05, 2025 7:55pm Heart block AV complete acute A ugust 2024 7:55pm Hyperkalemia acute April 05, 2025 7:55pm Overweight (BMI 25.0-29.9) acute April 05, 2025 7:55pm Respiratory insufficiency acute April 05, 2025 7:55pm Acute on chronic diastolic congestive heart failure chronic April 05, 2025 7:55pm Chronic atrial fibrillation chronic April 05, 2025 7:55pm CKD (chronic kidney disease) , stage IV chronic April 05 7:55pm 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 April 05 7:55pm Heart block AV complete acute A ugust 2024 11:14am Presence of cardiac pacemaker acute April 10, 2025 11:14am [facility] Work Phone: 1(854) 582-238507-16-2025 Discharge summary Author Chris Ochoa [facility] Note Date/Time March 04, 2025 7:26 pm [facility] Medical Records Department [address] [place] [address] Emergency Department Summary 03/04/25 MR#: [id number] Acct: [id number] Name: PEDRO HILLMAN Rep #:[id number] : 1945 80 From: Chris Ochoa MD [...] similar symptoms: Yes Recent Illness/Hospitalization: No [facility] Medical History Other persistent atrial fibrillation New onset atrial flutter COVID Wears hearing aid in both ears Former smoker Coronary artery disease Peripheral vascular occlusive disease BPH (benign prostatic hyperplasia) Chronic kidney disease, stage 3 Atherosclerosis of coronary artery of [place] heart without angina pectoris Hyperlipidemia Lower extremity [...] signs. Back nontender. Movingall 4 extremities. Normal credit assistant strength. Calves nontender without edema or cords. [...] 78.1 H Lymph % (Auto) 10.1 L [place] % (Auto) 9.1 Eos % (Auto) 1.6 [...] at the right lung base. Reading Location: [place] [address] Chest x-ray, 2 views, AP and lateral, [...] Chronic anticoagulation Disposition Disposition: Acute Care Hospital [facility] What to do if you have Problems For any increased pain, shortness of breath, bleeding, nausea or vomiting, chestpain, or any unexpected problems, contact your Primary Care Provider. Call [facility] ([phone]) or report to the closest Emergency Room. Call 911 if necessary. 03/04/251925 <Electronically signed by Chris Ochoa MD> Cosigner Signature (if applicable): CC: Dr. Tonio Fajardo, DO ~ Signed [facility] Work Phone: 1(550) 980-995007-16-2025 Discharge summary [facility] Medical Records Department [address] [place] [address] Emergency Department Summary 03/04/25 MR#: [id number] Acct: [id number] Name: KADY,PEDRO Nora Rep #:[id number] : 1945 80 From: Chris Ochoa MD [...] stage 3 Atherosclerosis of coronary artery of [place] heart without angina pectoris Hyperlipidemia Lower extremity [...] signs. Back nontender. Movingall 4 extremities. Normal credit assistant strength. Calves nontender without edema or cords. [...] 78.1 H Lymph % (Auto) 10.1 L [place] % (Auto) 9.1 Eos % (Auto) 1.6 [...] at the right lung base. [facility] Chest x-[facility], 2 views, AP and lateral, [...] Chronic anticoagulation Disposition Disposition: Acute Care Hospital [facility] What to do if you have Problems For any increased pain, shortness of breath, bleeding, nausea or vomiting, chestpain, or any unexpected problems, contact your Primary Care Provider. Call [facility] ([phone]) or report tothe closest Emergency Room. Call 911 if necessary. 03/04/251925 Cosigner Signature (if applicable): CC: Dr. Tonio Fajardo DO ~ Signed [facility]07-16-2025 Radiology Diagnostic study note [facility] Imaging Services [address] [place] [address] Chest PA and Lateral MR#: [id number] Acct: [id number] Name: PEDRO HILLMAN Rep #: [id number] : 1945 M 80 From: Tom Flores MD PCP: Dr. Tonio Fajardo DO Status: PRE ER Study:Chest PA and Lateral Date of Exam: 03/04/25 Exam# [id number] Ordering Dr: Camila Ochoa MD PROCEDURE: CHEST [...] at the right lung base. Reading Location: [place] [address] CC: Dr. Chris Ochoa MD; Dr. Tonio Fajardo DO ~ Infrastructure Analyst: Signed [facility]07-16-2025 Discharge summary Author Chris Ochoa [facility] Note Date/Time March 04, 2025 7:26 pm [facility] Medical Records Department [address] [place] [address] Emergency Department Summary 03/04/25 MR#: [id number] Acct: [id number] Name: PEDRO HILLMAN Rep #:[id number] : 1945 80 From: Chris Ochoa MD [...] stage 3 Atherosclerosis of coronary artery of [place] heart without angina pectoris Hyperlipidemia Lower extremity [...] signs. Back nontender. Movingall 4 extremities. Normal credit assistant strength. Calves nontender without edema or cords. [...] 78.1 H Lymph % (Auto) 10.1 L [place] % (Auto) 9.1 Eos % (Auto) 1.6 [...] at the right lung base. Reading Location: [facility] Chest x-ray, 2 views, AP [...] Chronic anticoagulation Disposition Disposition: Acute Care Hospital [facility] What to do if you have Problems For any increased pain, shortness of breath, bleeding, nausea or vomiting, chestpain, or any unexpected problems, contact your Primary Care Provider. Call [facility] ([phone]) or report to the closest Emergency Room. Call 911 if necessary. 03/04/251925 <Electronically signed by Chris Ochoa MD> Cosigner Signature (if applicable): CC: Dr. Tonio Fajardo, ~ Signed [facility] Work Phone: 1(556) 552-677903-20-2025 Evaluation note* Diagnosis Onset Date Resolution Status [...] 2025 7:57pm Atherosclerosis of coronary artery of [place] heart without angina pectoris chronic March 04, 2025 7:57pm CHF exacerbation chronic February 7:57pm [facility] Work Phone: 1(464) 399-846303-13-2025 Radiology Diagnostic study note [facility] Imaging Services [address] [place] [address] CT Chest AND Abd W/ Contrast MR#: [id number] Acct: [id number] Name: PEDRO HILLMAN Rep #: [id number] : 1945 M 79 From: Tom Flores MD PCP: Dr. Tonio Fajardo DO Status: REG CLI Study:CT Chest AND Abd W/ Contrast Date of Ex am: 10/30/24 Exam# [id number] Ordering Dr: Frantz Zamora MD PROCEDURE: CT [...] use of iterative reconstruction technique). Reading Location: [id number] CC: Dr. Russ Zamora MD; Dr. Tonio Fajardo, DO ~ Infrastructure Analyst: Signed [facility]02-28-2025 Procedure notey [facility] Pulmonary Services/Neurology [address] [place] [address] MR#: [id number] Acct: [id number] Name: PEDRO HILLMAN Rep #:[id number] : 1945 79 From: Tyrell Uriarte DO Referring Dr: Lorie Mart PLANE RUNNER PLANE RUNNER-C Status: REG CLI Location: PSN Date: Sex: M C PSN 6 Minute Walk Test 6 Minute Walk Test 6 Minute Walk Test: 6 Minute Walk Test PSN:6-Minute Walk Test Start: 10/16/24 13:24 Freq: Status: Active Protocol: RESP.6MINW Document 10/16/24 13:24 [facility] (Rec: 10/16/24 13:34 [facility] [id number]) 6 Minute Walk Test Date Performed 10/16/24 Time Performed 12:30 Height 5 ft 6 in Weight: 174 lb Weight in Pounds 174.[address]: Lorie Mart PLANE RUNNER Assistive device Walker used: Pre-test Oxygen Delivery [...] Tyrell Uriarte DO CC: ~ Date Dictated: 10/17/244 Date Transcribed: 10/17/241003 Infrastructure Analyst: Dr. Tyrell Uriarte DO Signed [facility]02-06-2025 Evaluation note* Diagnosis Onset Date Resolution [...] right lung chronic Marlon h 2024 2:10pm [facility] Work Phone: 1(931) 342-963202-06-2025 Evaluation note* Diagnosis Onset Date Resolution Status [...] right lung chronic Marlon h 2024 1:24pm [facility] Work Phone: 1(279) 913-772610-20-[address] [facility] 04-18-2023 Progress note Author Joaquim Suárez [facility] April 18, 2023 7:12pm Note Date/Time April 18, 2023 3: 56pm [facility] [address] [place] [address] Progress Note - Wound Care 04/18/23 1549 MR#: [id number] Acct: [id number] Name: PEDRO HILLMAN Nora Rep #:[id number] : 1945 78 From: Joaquim Smith PM [...] Date Recorded By Document 04/02/23 11:24 PL [id number] 04/02/23 11:25 PL Document 04/18/23 13:24 [facility] [id number] 04/18/23 13:30 [facility] 04/02/23 04/18/23 11:24 13:24 - Today's Visit Information Type of service Follow-up Visit Follow-up Visit (Physician/WORKERS COMPENSATION DEFENSE ATTORNEY (Physician/WORKERS COMPENSATION DEFENSE ATTORNEY ) ) Arrival Mode Ambulatory,Cane Ambulatory,Cane Transfer [...] Recorded Date Recorded By Document 04/18/23 13:24 [facility] [id number] 04/18/23 13:30 [facility] 04/18/23 13:24 Wound Center Nurse 1 #9 [...] Attached -Granulation Amt Large (67-100%) -Granulation Quality [place] -Slough/Fibrin No -Necrosis Amt None Present (0 [...] Recorded Date Recorded By Document 04/02/23 11:42 [id number] 04/02/23 11:53 Document 04/18/23 14:03 [id number] 04/18/23 14:04 04/02/23 04/18/23 11:42 14:03 Wound [...] Pain Free? 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 Tonio Fajardo, DO Status:REG RCR [...] 11:24 04/02/23 11:24 Charges/Coding Procedures Integumentary 111xxx-113xx: 11295 Mihaela subq tissue 20 sq cm/< Debridement [...] Date Recorded By Document 04/02/23 11:24 KIM [id number] 04/02/23 11:25 KIM 04/02/23 11:24 - Today's Visit Information Type of service Follow-up Visit (Physician/WORKERS COMPENSATION DEFENSE ATTORNEY ) Arrival Mode Ambulatory,Cane Transfer Assistance None [...] Recorded Date Recorded By Document 04/02/23 11:42 [id number] 04/02/23 11:53 04/02/23 11:42 Wound Center Nurse [...] Date Recorded By Document 04/02/23 11:54 DORA [id number] 04/02/23 11:54 04/02/23 11:54 Wound Care Center [...] that the wound center will have a prekindergarten teacher, will have the patient see him for further evaluation and treatment. Follow up two weeks. Call or come in sooner if develop any questions or concerns. 04/07/23 7719 <Electronically signed by Bonny Glynn NP PLANE RUNNER-C> Cosigner Signature (if applicable): CC: ~ Signed [facility] Work Phone: 1(752) 323-414107-17-2023 Progress note Author Bonny Glynn [facility] March 05, 2023 1:06pm Note Date/Time March 05, 2023 12:2 9pm [facility] [address] [place] [address] Progress Note - Wound Care 03/05/23 1226 MR#: [id number] Acct: [id number] Name: PEDRO HILLMAN Rep #:[id number] : 1945 78 From: Bonny garcia PLANE RUNNER PLANE RUNNER-C PCP: Dr. Tonio Fajardo, DO Status:REG RCR [...] Method Room Air Charges/Coding Procedures Integumentary 111xxx-113xx: 52740 Mihaela subq tissue 20 sq cm/< Debridement [...] Recorded Date Recorded By Document 02/19/23 13:34 [id number] 02/19/23 13:36 Document 03/05/23 11:26 [id number] 03/05/23 11:29 KW 02/19/23 03/05/23 13:34 11:26 - Today's Visit Information Type of service Follow-up Visit Follow-up Visit (Physician/WORKERS COMPENSATION DEFENSE ATTORNEY (Physician/WORKERS COMPENSATION DEFENSE ATTORNEY ) ) Arrival Mode Ambulatory Ambulatory,Cane Accompanied [...] Recorded Date Recorded By Document 02/19/23 13:34 [id number] 02/19/23 13:36 Document 03/05/23 11:26 [id number] 03/05/23 11:29 02/19/23 03/05/23 13:34 11:26 Wound [...] Large (67-100%) Small (1-33%) -Granulation Quality Red [place] -Slough/Fibrin No -Necrosis Amt Small (1-33%) -Structure [...] Gel Lower Limb Edema Present NA NA URBAN - Nurse 2 - General Ulcer CM Notes Start: 02/19/23 13:34 Freq: Status: Active Protocol: Activity Type Activity Date Activity User E-sign Co-sign Detail Recorded Client Recorded Date Recorded By Document 02/19/23 13:37 [id number] 02/19/23 13:39 Document 03/05/23 11:37 [id number] 03/05/23 11:46 02/19/23 03/05/23 13:37 11:37 Wound [...] Pain Free? Yes Yes URBAN - Nurse 3 - General Ulcer D/C NN Start: 02/19/23 13:34 Freq: Status: Active Protocol: Activity Type Activity Date Activity User E-sign Co-sign Detail Recorded Client Recorded Date Recorded By Document 02/19/23 13:43 MW [id number] 02/19/23 13:44 MW Document 03/05/23 11:53 [facility] [id number] 03/05/23 11:55 BM 02/19/23 03/05/23 13:43 11:53 [...] 1306 <Electronically signed by Bonny Glynn NP PLANE RUNNER-C> Cosigner Signature (if applicable): CC: ~ Signed [facility] Work Phone: 1(945) 150-204007-03-2023 Progress note Author [facility] February 19, 2023 2:23pm Note Date/Time February 19, 2023 2:16p m [facility] [address] [place] [address] Progress Note - Wound Care 02/19/23 1412 MR#: [id number] Acct: [id number] Name: KADYPEDRO Nora Rep #:[id number] : 1945 78 From: Bonny garcia NP PLANE RUNNER-C PCP: Dr. Tonio Fajardo, DO Status:REG RCR [...] 13:34 02/19/23 13:34 Charges/Coding Procedures Integumentary 111xxx-113xx: 32889 Mihaela subq tissue 20 sq cm/< Debridement [...] Date Recorded By Document 02/19/23 13:34 DORA [id number] 02/19/23 13:36 DORA 02/19/23 13:34 URBAN - Today's Visit Information Type of service Follow-up Visit (Physician/WORKERS COMPENSATION DEFENSE ATTORNEY ) Arrival Mode Ambulatory Patient Requires Transmission-Based [...] Date Recorded By Document 02/19/23 13:34 DORA [id number] 02/19/23 13:36 DORA 02/19/23 13:34 Wound Center [...] Recorded Date Recorded By Document 02/19/23 13:37 JF [id number] 02/19/23 13:39 JF 02/19/23 13:37 Wound Center Nurse 2 #9 [...] Date Recorded By Document 02/19/23 13:43 MW [id number] 02/19/23 13:44 MW 02/19/23 13:43 Wound Care [...] 1423 <Electronically signed by Bonny Glynn NP PLANE RUNNER-C> Cosigner Signature (if applicable): CC: ~ Signed [facility] Work Phone: 1(156) 245-413606-19-2023 Progress note Author Bonny Glynn [facility] February 05, 2023 2:37pm Note Date/Time February 05, 2023 1:59 pm [facility] [address] [place] [address] Progress Note - Wound Care 02/05/23 1359 MR#: [id number] Acct: [id number] Name: PEDRO HILLMAN Rep #:[id number] : 1945 78 From: Bonny garcia NP PLANE RUNNER-C PCP: Dr. Tonio Fajardo, DO Status:REG RCR Location: History of Present Illness Date of Service: 02/05/23 Chief Complaint: right medial foot ulcer History of Wound: This 78-year-old male returns to the wound healing clinic for reoccurrence of a right medial foot ulcer. Wound care has been Moistened Cass covered with Meally SAP dressing. Patient diabetic neuropathic. Patient dealing [...] Method Room Air Charges/Coding Procedures Integumentary 111xxx-113xx: 43489 Mihaela subq tissue 20 sq cm/< Debridement [...] Start: 01/22/23 13:42 Freq: Status: Active Protocol: URBAN.KEYONAT Activity Type Activity Date Activity User E-sign Co-sign Detail Recorded Client Recorded Date Recorded By Document 01/22/23 13:45 DL [id number] 01/22/23 13:48 DL Document 02/05/23 13:10 [facility] [id number] 02/05/23 13:15 [facility] 01/22/23 02/05/23 13:45 13:10 - Today's Visit Information Type of service Follow-up Visit Follow-up Visit (Physician/WORKERS COMPENSATION DEFENSE ATTORNEY (Physician/WORKERS COMPENSATION DEFENSE ATTORNEY ) ) Arrival Mode Ambulatory Ambulatory,Cane Transfer [...] Date Recorded By Document 01/22/23 13:45 DL [id number] 01/22/23 13:48 DL Document 02/05/23 13:10 [facility] [id number] 02/05/23 13:15 BMF 01/22/23 02/05/23 13:45 13:10 [...] Present (0 Large (67-100%) %) -Granulation Quality [place] -Slough/Fibrin Yes -Necrosis Amt Small (1-33%) Small [...] Recorded Date Recorded By Document 01/22/23 14:22 [id number] 01/22/23 14:23 01/22/23 14:22 Wound Center Nurse [...] Date Recorded By Document 01/22/23 14:30 DL [id number] 01/22/23 14:31 DL Document 02/05/23 13:49 BMF [id number] 02/05/23 13:49 BMF 01/22/23 02/05/23 14:30 13:49 [...] 1437 <Electronically signed by Bonny Glynn NP PLANE RUNNER-C> Cosigner Signature (if applicable): CC: ~ Signed [facility] Work Phone: 1(359) 231-829206-05-2023 Progress note Author Bonny Glynn [facility] January 22, 2023 3:47pm Note Date/Time January 22, 2023 3:31p m [facility] [address] [place] [address] Progress Note - Wound Care 01/22/23 1529 MR#: [id number] Acct: [id number] Name: PEDRO HILLMAN Rep #:[id number] : 1945 78 From: Bonny garcia NP PLANE RUNNER-C PCP: Dr. Tonio Fajardo, DO Status:REG RCR Location: History of Present Illness Date of Service: 01/22/23 Chief Complaint: right medial foot ulcer History of Wound: This 78-year-old male returns to the wound healing clinic for reoccurrence of a right medial foot ulcer. Wound care has been Moistened Cass covered with Meally SAP dressing. Patient diabetic neuropathic. Patient dealing [...] 13:45 01/22/23 13:45 Charges/Coding Procedures Integumentary 111xxx-113xx: 09852 Mihaela subq tissue 20 sq cm/< Debridement [...] Start: 01/22/23 13:42 Freq: Status: Active Protocol: URBAN.KEYONAT Activity Type Activity Date Activity User E-sign Co-sign Detail Recorded Client Recorded Date Recorded By Document 01/22/23 13:45 DL [id number] 01/22/23 13:48 DL 01/22/23 13:45 - Today's Visit Information Type of service Follow-up Visit (Physician/WORKERS COMPENSATION DEFENSE ATTORNEY ) Arrival Mode Ambulatory Transfer Assistance None [...] Date Recorded By Document 01/22/23 13:45 DL [id number] 01/22/23 13:48 DL 01/22/23 13:45 Wound Center [...] Recorded Date Recorded By Document 01/22/23 14:22 [id number] 01/22/23 14:23 01/22/23 14:22 Wound Center Nurse [...] Date Recorded By Document 01/22/23 14:30 DL [id number] 01/22/23 14:31 DL 01/22/23 14:30 Wound Care [...] if develop any questions or concerns. 01/22/23 9348 <Electronically signed by Bonny Glynn NP PLANE RUNNER-C> Cosigner Signature (if applicable): CC: ~ Signed [facility] Work Phone: 1(873) 210-775205-22-2023 Progress note Author Bonny Glynn [facility] January 08, 2023 2:17pm Note Date/Time January 08, 2023 2:10p m [facility] [address] [place] [address] Progress Note - Wound Care 01/08/23 1407 MR#: [id number] Acct: [id number] Name: PEDRO HILLMAN Rep #:[id number] : 1945 77 From: Bonny garcia NP PLANE RUNNER-C PCP: Dr. Tonio Fajardo, DO Status:REG RCR Location: History of Present Illness Date of Service: 01/08/23 Chief Complaint: right medial foot ulcer History of Wound: This 77-year-old male returns to the wound healing clinic for reoccurrence of a right medial foot ulcer. Wound care has been Moistened Cass covered with Meally SAP dressing. Patient diabetic neuropathic. Patient dealing [...] 14:53 01/08/23 13:37 Charges/Coding Procedures Integumentary 111xxx-113xx: 20736 Mihaela subq tissue 20 sq cm/< Debridement [...] Date Recorded By Document 12/18/22 13:20 PL [id number] 12/18/22 13:27 PL Document 12/25/22 14:53 [id number] 12/25/22 14:54 JF Document 01/08/23 13:37 AK [id number] 01/08/23 13:39 AK 12/18/22 12/25/22 01/08/23 13:20 14:53 13:37 WC - Today's Visit Information Type of service Follow-up Visit Follow-up Visit Follow-up Visit (Physician/WORKERS COMPENSATION DEFENSE ATTORNEY (Physician/WORKERS COMPENSATION DEFENSE ATTORNEY (Physician/WORKERS COMPENSATION DEFENSE ATTORNEY ) ) ) Arrival Mode Ambulatory Ambulatory [...] Date Recorded By Document 12/18/22 13:20 PL [id number] 12/18/22 13:27 PL Document 12/25/22 14:53 [id number] 12/25/22 14:54 Document 01/08/23 13:37 PR [id number] 01/08/23 13:39 AK 12/18/22 12/25/22 01/08/23 13:20 [...] (34-66%) Small (1-33%) Medium (34-66%) -Granulation Quality [place] Pale -Slough/Fibrin No Yes Yes -Necrosis Amt [...] Recorded Date Recorded By Document 12/18/22 13:51 [id number] 12/18/22 13:53 Document 12/25/22 15:00 [id number] 12/25/22 15:10 Document 01/08/23 14:01 [id number] 01/08/23 14:02 12/18/22 12/25/22 01/08/23 13:51 15:00 [...] Date Recorded By Document 12/18/22 14:07 PL [id number] 12/18/22 14:07 PL Document 12/25/22 15:20 DL [id number] 12/25/22 15:20 DL 12/18/22 12/25/22 14:07 15:20 [...] 1417 <Electronically signed by Bonny Glynn NP PLANE RUNNER-C> Cosigner Signature (if applicable): CC: ~ Signed [facility] Work Phone: [phone]) 266-451505-14-[address] Ochoa [facility] December 31, 2022 12:58am Note Date/Time December 30, 2022 11:08 pm [facility] Medical Records Department [address] [place] [address] Emergency Department Summary 12/30/22 MR#: [id number] Acct: [id number] Name: PEDRO HILLMAN Rep #:[id number] : 1945 77 From: Chris Ochoa MD [...] Recent Illness/Hospitalization: No PFSH PFS Medical History Anemia Atherosclerosis of coronary artery of [place] heart without angina pectoris BPH (benign prostatic [...] extremities. Nontender. No edema. No cellulitis. Normal credit assistant strength. Normal dorsi plantarflexion. Neurologically is awake [...] 83.3 H Lymph % (Auto) 6.4 L [place] % (Auto) 9.1 Eos % (Auto) 0.2 [...] Color Urine Clarity Urine pH Ur Specific [place] Urine Protein Urine Glucose (UA) Urine Ketones Urine Occult Blood Urine Nitrite Urine Bilirubin Urine Urobilinogen Ur Leukocyte Esterase Urine RBC Urine WBC Ur Squamous Epith Cells Urine Bacteria Urine Mucus 12/30/22 12/30/22 22:50 23:59 WBC RBC Hgb Hct MCV MCH MCHC RDW Std Deviation RDW Coeff of Reggie Plt Count MPV Immature Gran % (Auto) Neut % (Auto) Lymph % (Auto) [place] % (Auto) Eos % (Auto) Baso % [...] Clarity Clear Urine pH 7.0 Ur Specific [place] 1.005 Urine Protein 100 H Urine Glucose [...] your Primary Care Provider. Call [facility] ([phone]) or report to the closest Emergency Room. Call 911 if necessary. 12/31/22 0058 <Electronically signed by Chris Ochoa MD> Cosigner Signature (if applicable): CC: Dr. Tonio Fajardo DO ~ Signed [facility] Work Phone: [phone]) [phone] Progress note Author Bonny Glynn [facility] December 25, 2022 3:36pm Note Date/Time December 25, 2022 3:36pm [facility] [address] [place] [address] Progress Note - Wound Care 12/25/22 1531 MR#: [id number] Acct: [id number] Name: PEDRO HILLMAN Rep #:[id number] : 1945 77 From: Bonny Gillis ll PLANE RUNNER PLANE RUNNER-C PCP: Dr. Tonio Fajardo, DO Status:REG RCR Location: History of Present Illness Date of Service: 12/25/22 Chief Complaint: right medial foot ulcer History of Wound: This 77-year-old male returns to the wound healing clinic for reoccurrence of a right medial foot ulcer. Wound care has been Moistened Cass covered with Meally SAP dressing. Patient diabetic neuropathic. Patient dealing [...] 14:53 12/25/22 14:53 Charges/Coding Procedures Integumentary 111xxx-113xx: 99309 Mihaela subq tissue 20 sq cm/< Debridement [...] Date Recorded By Document 12/18/22 13:20 PL [id number] 12/18/22 13:27 Document 12/25/22 14:53 [id number] 12/25/22 14:54 12/18/22 12/25/22 13:20 14:53 - Today's Visit Information Type of service Follow-up Visit Follow-up Visit (Physician/WORKERS COMPENSATION DEFENSE ATTORNEY (Physician/WORKERS COMPENSATION DEFENSE ATTORNEY ) ) Arrival Mode Ambulatory Ambulatory Transfer [...] Date Recorded By Document 12/18/22 13:20 PL [id number] 12/18/22 13:27 Document 12/25/22 14:53 [id number] 12/25/22 14:54 12/18/22 12/25/22 13:20 14:53 Wound [...] Amt Medium (34-66%) Small (1-33%) -Granulation Quality [place] -Slough/Fibrin No Yes -Necrosis Amt Medium (34-66%) [...] Recorded Date Recorded By Document 12/18/22 13:51 [id number] 12/18/22 13:53 Document 12/25/22 15:00 [id number] 12/25/22 15:10 12/18/22 12/25/22 13:51 15:00 Wound [...] Date Recorded By Document 12/18/22 14:07 PL [id number] 12/18/22 14:07 PL Document 12/25/22 15:20 DL [id number] 12/25/22 15:20 DL 12/18/22 12/25/22 14:07 15:20 [...] 1536 <Electronically signed by Bonny Glynn NP PLANE RUNNER-C> Cosigner Signature (if applicable): CC: ~ Signed [facility] Work Phone: [phone]) 550-609505-01-2023 Progress note Author Bonny Glynn [facility] December 18, 2022 2:23pm Note Date/Time December 18, 2022 2:23pm [facility] [address] [place] [address] Progress Note - Wound Care 12/18/22 1419 MR#: [id number] Acct: [id number] Name: PEDRO HILLMAN Rep #:[id number] : 1945 77 From: Bonny garcia PLANE RUNNER PLANE RUNNER-C PCP: Dr. Tonio Fajardo, DO Status:REG RCR Location: History of Present Illness Date of Service: 12/18/22 Chief Complaint: right medial foot ulcer History of Wound: This 77-year-old male returns to the wound healing clinic for reoccurrence of a right medial foot ulcer. Wound care has been Moistened Cass covered with Meally SAP dressing. Patient diabetic neuropathic. Patient dealing [...] 13:20 12/18/22 13:20 Charges/Coding Procedures Integumentary 111xxx-113xx: 19162 Miheala subq tissue 20 sq cm/< Debridement Note [...] Date Recorded By Document 12/18/22 13:20 PL [id number] 12/18/22 13:27 12/18/22 13:20 WC - Today's Visit Information Type of service Follow-up Visit (Physician/WORKERS COMPENSATION DEFENSE ATTORNEY ) Arrival Mode Ambulatory Transfer Assistance None [...] Date Recorded By Document 12/18/22 13:20 PL [id number] 12/18/22 13:27 PL 12/18/22 13:20 Wound Center [...] Serosanguineous -Granulation Amt Medium (34-66%) -Granulation Quality [place] -Slough/Fibrin No -Necrosis Amt Medium (34-66%) -Necrotic [...] Recorded Date Recorded By Document 12/18/22 13:51 [id number] 12/18/22 13:53 JF 12/18/22 13:51 Wound Center Nurse 2 -Time [...] Date Recorded By Document 12/18/22 14:07 PL [id number] 12/18/22 14:07 PL 12/18/22 14:07 Wound Care [...] if develop any questions or concerns. 12/18/22 5100 <Electronically signed by Bonny Glynn NP PLANE RUNNER-C> Cosigner Signature (if applicable): CC: ~ Signed [facility] Work Phone: [phone]) [phone] Progress note Author Bonny Glynn [facility] December 14, 2022 2:56pm Note Date/Time December 11, 2022 3:2 7pm [facility] [address] [place] [address] Progress Note - Wound Care 12/11/22 1527 MR#: [id number] Acct: [id number] Name: PEDRO HILLMAN Rep #:[id number] : 1945 77 From: Bonny garcia PLANE RUNNER PLANE RUNNER-C PCP: Dr. Tonio Fajardo, DO Status:REG RCR Location: History of Present Illness Date of Service: 12/11/22 Chief Complaint: right medial foot ulcer History of Wound: This 77-year-old male returns to the wound healing clinic for reoccurrence of a right medial foot ulcer. Wound care has been Moistened Cass covered with Meally SAP dressing. Patient diabetic neuropathic. Patient dealing [...] Method Room Air Charges/Coding Procedures Integumentary 111xxx-113xx: 50287 Mihaela subq tissue 20 sq cm/< Debridement [...] Date Recorded By Document 11/20/22 14:43 DL [id number] 11/20/22 14:49 DL Document 11/27/22 14:25 BMF [id number] 11/27/22 14:27 BMF Document 12/06/22 11:35 DL [id number] 12/06/22 11:39 DL Document 12/11/22 13:12 BMF [id number] 12/11/22 13:21 BMF 11/20/22 11/27/22 12/06/22 14:43 14:25 11:35 - Today's Visit Information Type of service Follow-up Visit Follow-up Visit (Physician/WORKERS COMPENSATION DEFENSE ATTORNEY (Physician/WORKERS COMPENSATION DEFENSE ATTORNEY ) ) Arrival Mode Ambulatory,Cane Ambulatory Transfer [...] Visit Information Type of service Follow-up Visit (Physician/WORKERS COMPENSATION DEFENSE ATTORNEY ) Arrival Mode Ambulatory,Cane Transfer Assistance None [...] Date Recorded By Document 11/20/22 14:43 DL [id number] 11/20/22 14:49 DL Document 11/27/22 14:25 BMF [id number] 11/27/22 14:27 BMF Document 12/06/22 11:35 DL [id number] 12/06/22 11:39 DL Document 12/11/22 13:12 [facility] [id number] 12/11/22 13:21 [facility] 11/20/22 11/27/22 12/06/22 14:43 14:25 11:35 Wound [...] Amt Small (1-33%) Small (1-33%) -Granulation Quality [place] Pale -Slough/Fibrin -Necrosis Amt Small (1-33%) Small [...] Recorded Date Recorded By Document 11/20/22 15:00 [id number] 11/20/22 15:09 Edit Result 11/20/22 15:00 JF (1) [id number] 11/20/22 15:18 JF Edit Result 11/20/22 15:00 JF (2) [id number] 11/20/22 15:20 Document 11/27/22 14:50 [id number] 11/27/22 15:02 Document 12/06/22 11:46 [id number] 12/06/22 11:57 Document 12/11/22 13:30 [id number] 12/11/22 13:33 (1) #9 Right Inferior Hallux [...] => 08/20/27 - Product Lot Number => [id number] - Percent Used => 100 - Lot number of Saline Used => [id number] 11/20/22 11/27/22 12/06/22 15:00 14:50 11:46 Wound [...] Date 08/20/27 08/20/27 09/20/27 -Product Lot Number [id number] -Percent Used 100 100 100 -Lot number of Saline Used [id number] -Bleeding Controlled with Pressure Pressure Pressure -Treatment [...] Date Recorded By Document 11/20/22 15:35 DL [id number] 11/20/22 15:36 DL Document 11/27/22 15:02 DORA [id number] 11/27/22 15:03 JF Document 12/06/22 11:57 JF [id number] 12/06/22 11:58 JF Document 12/11/22 13:57 DL [id number] 12/11/22 13:58 DL 11/20/22 11/27/22 12/06/22 15:35 [...] if develop any questions or concerns. 12/14/22 5886 <Electronically signed by Bonny Glynn NP PLANE RUNNER-C> Cosigner Signature (if applicable): CC: ~ Signed [facility] Work Phone: [phone]) [phone] Progress note Author Bonny Glynn [facility] December 06, 2022 12:09pm Note Date/Time December 06, 2022 12: 09pm [facility] [address] [place] [address] Progress Note - Wound Care 12/06/22 1205 MR#: [id number] Acct: [id number] Name: PEDRO HILLMAN Rep #:[id number] : 1945 77 From: Bonny garcia NP PLANE RUNNER-C PCP: Dr. Tonio Fajardo, DO Status:REG RCR Location: History of Present Illness Date of Service: 12/06/22 Chief Complaint: right medial foot ulcer History of Wound: This 77-year-old male returns to the wound healing clinic for reoccurrence of a right medial foot ulcer. Wound care has been Moistened Cass covered with Meally SAP dressing. Patient diabetic neuropathic. Patient dealing [...] 11:35 12/06/22 11:35 Charges/Coding Procedures Integumentary 150xxx-152xx: 36030 Skin sub graft face/nk/hf/g Debridement Note Debridement [...] Date Recorded By Document 11/20/22 14:43 DL [id number] 11/20/22 14:49 DL Document 11/27/22 14:25 BMF [id number] 11/27/22 14:27 BMF Document 12/06/22 11:35 DL [id number] 12/06/22 11:39 DL 11/20/22 11/27/22 12/06/22 14:43 14:25 11:35 WC - Today's Visit Information Type of service Follow-up Visit Follow-up Visit (Physician/WORKERS COMPENSATION DEFENSE ATTORNEY (Physician/WORKERS COMPENSATION DEFENSE ATTORNEY ) ) Arrival Mode Ambulatory,Cane Ambulatory Transfer [...] Date Recorded By Document 11/20/22 14:43 DL [id number] 11/20/22 14:49 DL Document 11/27/22 14:25 BMF [id number] 11/27/22 14:27 BMF Document 12/06/22 11:35 DL [id number] 12/06/22 11:39 DL 11/20/22 11/27/22 12/06/22 14:43 [...] Amt Small (1-33%) Small (1-33%) -Granulation Quality [place] Pale -Necrosis Amt Small (1-33%) Small (1-33%) [...] Date Recorded By Document 11/20/22 15:00 DORA [id number] 11/20/22 15:09 JF Edit Result 11/20/22 15:00 DORA (1) [id number] 11/20/22 15:18 JF Edit Result 11/20/22 15:00 JF (2) [id number] 11/20/22 15:20 JF Document 11/27/22 14:50 [id number] 11/27/22 15:02 JF Document 12/06/22 11:46 [id number] 12/06/22 11:57 JF (1) #9 Right Inferior [...] => 08/20/27 - Product Lot Number => [id number] - Percent Used => 100 - Lot number of Saline Used => [id number] 11/20/22 11/27/22 12/06/22 15:00 14:50 11:46 Wound [...] Date 08/20/27 08/20/27 09/20/27 -Product Lot Number [id number] -Percent Used 100 100 100 -Lot number of Saline Used [id number] -Bleeding Controlled with Pressure Pressure Pressure -Treatment [...] Recorded Date Recorded By Document 11/20/22 15:35 [id number] 11/20/22 15:36 DL Document 11/27/22 15:02 [id number] 11/27/22 15:03 Document 12/06/22 11:57 [id number] 12/06/22 11:58 11/20/22 11/27/22 12/06/22 15:35 15:02 [...] 1209 <Electronically signed by Bonny Glynn NP PLANE RUNNER-C> Cosigner Signature (if applicable): CC: ~ Signed [facility] Work Phone: 1(460) [phone] Progress note Author Bonny Glynn [facility] November 28, 2022 5:24pm Note Date/Time November 27, 2022 3:1 4pm [facility] [address] [place] [address] Progress Note - Wound Care 11/27/22 1513 MR#: [id number] Acct: [id number] Name: PEDRO HILLMAN Rep #:[id number] : 1945 77 From: Bonny garcia PLANE RUNNER PLANE RUNNER-C PCP: Dr. Tonoi Fajardo, DO Status:REG RCR Location: History of Present Illness Date of Service: 11/27/22 Chief Complaint: right medial foot ulcer History of Wound: This 77-year-old male returns to the wound healing clinic for reoccurrence of a right medial foot ulcer. Wound care has been Moistened Cass covered with Meally SAP dressing. Patient diabetic neuropathic. Patient dealing [...] 14:43 11/27/22 14:25 Charges/Coding Procedures Integumentary 150xxx-152xx: 27284 Skin sub graft face/nk/hf/g Debridement Note Debridement [...] Start: 11/20/22 14:43 Freq: Status: Active Protocol: URBAN.ARCHIE Activity Type Activity Date Activity User E-sign Co-sign Detail Recorded Client Recorded Date Recorded By Document 11/20/22 14:43 [id number] 11/20/22 14:49 DL Document 11/27/22 14:25 [facility] [id number] 11/27/22 14:27 [facility] 11/20/22 11/27/22 14:43 14:25 - Today's Visit Information Type of service Follow-up Visit Follow-up Visit (Physician/WORKERS COMPENSATION DEFENSE ATTORNEY (Physician/WORKERS COMPENSATION DEFENSE ATTORNEY ) ) Arrival Mode Ambulatory,Cane Ambulatory Transfer [...] Date Recorded By Document 11/20/22 14:43 DL [id number] 11/20/22 14:49 DL Document 11/27/22 14:25 [facility] [id number] 11/27/22 14:27 BMF 11/20/22 11/27/22 14:43 14:25 [...] Thickened -Granulation Amt Small (1-33%) -Granulation Quality [place] -Necrosis Amt Small (1-33%) -Necrotic Tissue Type [...] Recorded Date Recorded By Document 11/20/22 15:00 [id number] 11/20/22 15:09 Edit Result 11/20/22 15:00 JF (1) [id number] 11/20/22 15:18 JF Edit Result 11/20/22 15:00 JF (2) [id number] 11/20/22 15:20 Document 11/27/22 14:50 [id number] 11/27/22 15:02 (1) #9 Right Inferior Hallux [...] => 08/20/27 - Product Lot Number => [id number] - Percent Used => 100 - Lot number of Saline Used => [id number] 11/20/22 11/27/22 15:00 14:50 Wound Center Nurse [...] -Expiration Date 08/20/27 08/20/27 -Product Lot Number [id number] -Percent Used 100 100 -Lot number of Saline Used [id number] -Bleeding Controlled with Pressure Pressure -Treatment Response [...] Date Recorded By Document 11/20/22 15:35 DL [id number] 11/20/22 15:36 DL Document 11/27/22 15:02 [id number] 11/27/22 15:03 JF 11/20/22 11/27/22 15:35 15:02 [...] 1724 <Electronically signed by Bonny Glynn NP PLANE RUNNER-C> Cosigner Signature (if applicable): CC: ~ Signed [facility] Work Phone: [phone]) [phone] Progress note Author Bonny Glynn [facility] November 26, 2022 10:29pm Note Date/Time November 20, 2022 4:18 pm [facility] [address] [facility] [place] [address] Progress Note - Wound Care 11/20/22 1618 MR#: [id number] Acct: [id number] Name: PEDRO HILLMAN Rep #:[id number] : 1945 77 From: Bonny garcia NP PLANE RUNNER-C PCP: Dr. Tonio Fajardo, DO Status:REG RCR Location: History of Present Illness Date of Service: 11/20/22 Chief Complaint: right medial foot ulcer History of Wound: This 77-year-old male returns to the wound healing clinic for reoccurrence of a right medial foot ulcer. Wound care has been Moistened Cass covered with Meally SAP dressing. Patient diabetic neuropathic. Patient dealing [...] 14:43 11/20/22 14:43 Charges/Coding Procedures Integumentary 150xxx-152xx: 58994 Skin sub graft face/nk/hf/g Debridement Note Debridement [...] Date Recorded By Document 11/20/22 14:43 DL [id number] 11/20/22 14:49 DL 11/20/22 14:43 URBAN - Today's Visit Information Type of service Follow-up Visit (Physician/WORKERS COMPENSATION DEFENSE ATTORNEY ) Arrival Mode Ambulatory,Cane Transfer Assistance None [...] Numeric Is Patient Pain Free? Yes URBAN Johnson Nurse 1 - General Ulcer Measurement Start: 11/20/22 14:43 Freq: Status: Active Protocol: Activity Type Activity Date Activity User E-sign Co-sign Detail Recorded Client Recorded Date Recorded By Document 11/20/22 14:43 ORESTES [id number] 11/20/22 14:49 DL 11/20/22 14:43 Wound Center Nurse 1 #9 Right Inferior Hallux -Current Size (cm) - Length 0.2 -Current Size (cm) - Width 0.3 -Current Size (cm) - Depth 0.2 -Total Square Cm 0.06 -Photo Taken No -Exudate Amt Small -Exudate Type Serosanguineous -Wound Margin Thickened -Granulation Amt Small (1-33%) -Granulation Quality [place] -Necrosis Amt Small (1-33%) -Necrotic Tissue Type [...] Recorded Date Recorded By Document 11/20/22 15:00 [id number] 11/20/22 15:09 JF Edit Result 11/20/22 15:00 JF (1) [id number] 11/20/22 15:18 JF Edit Result 11/20/22 15:00 JF (2) [id number] 11/20/22 15:20 JF (1) #9 Right Inferior [...] => 08/20/27 - Product Lot Number => [id number] - Percent Used => 100 - Lot number of Saline Used => [id number] 11/20/22 15:00 Wound Center Nurse 2 -Time [...] Disc -Expiration Date 08/20/27 -Product Lot Number [id number] -Percent Used 100 -Lot number of Saline Used [id number] -Bleeding Controlled with Pressure -Treatment Response Procedure [...] Date Recorded By Document 11/20/22 15:35 DL [id number] 11/20/22 15:36 DL 11/20/22 15:35 Wound Care [...] sooner if develop any questions or concerns. 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 Tonio Fajardo, DO Status:REG RCR Location: History of Present Illness Date of Service: 10/09/22 Chief Complaint: right foot ulcer History of Wound: This 77-year-old male returns to the wound healing clinic for reoccurrence of a right medial foot ulcer. Wound care has been Moistened Cass covered with Meally SAP dressing. Patient diabetic neuropathic. Patient dealing [...] Method Room Air Charges/Coding Procedures Integumentary 150xxx-152xx: 28892 Skin sub graft face/nk/hf/g Debridement Note Debridement [...] Start: 09/25/22 14:25 Freq: Status: Active Protocol: URBANNavini NetworksPATRICA Activity Type Activity Date Activity User E-sign Co-sign Detail Recorded Client Recorded Date Recorded By Document 09/25/22 14:25 BMF [id number] 09/25/22 14:32 BMF Document 10/02/22 13:28 ML [id number] 10/02/22 13:32 ML Document 10/09/22 12:59 DL [id number] 10/09/22 13:04 DL 09/25/22 10/02/22 10/09/22 14:25 13:28 12:59 - Today's Visit Information Type of service Follow-up Visit Follow-up Visit Follow-up Visit (Physician/WORKERS COMPENSATION DEFENSE ATTORNEY (Physician/WORKERS COMPENSATION DEFENSE ATTORNEY (Physician/WORKERS COMPENSATION DEFENSE ATTORNEY ) ) ) Arrival Mode Ambulatory,Cane Cane [...] Date Recorded By Document 09/25/22 14:25 BMF [id number] 09/25/22 14:32 BMF Document 10/02/22 13:28 ML [id number] 10/02/22 13:32 ML Document 10/09/22 12:59 DL [id number] 10/09/22 13:04 DL 09/25/22 10/02/22 10/09/22 14:25 [...] (0 Large (67-100%) %) -Granulation Quality Red [place] -Slough/Fibrin Yes Yes -Necrosis Amt Small (1-33%) [...] Recorded Date Recorded By Document 09/25/22 14:42 [id number] 09/25/22 14:51 Document 10/02/22 14:14 [id number] 10/02/22 14:17 Document 10/09/22 13:17 [id number] 10/09/22 13:26 09/25/22 10/02/22 10/09/22 14:42 14:14 [...] Date 06/20/27 05/20/27 06/20/27 -Product Lot Number [id number] -Percent Used 100 100 100 -Lot number of Saline Used [id number] -Bleeding Controlled with Pressure Pressure Pressure -Treatment [...] Recorded Date Recorded By Document 09/25/22 14:52 [id number] 09/25/22 14:53 Document 10/02/22 14:18 [id number] 10/02/22 14:19 09/25/22 10/02/22 14:52 14:18 Wound [...] 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 I spoke with his PCP, Dr Fajardo, who was made aware of the results and he said he would treat him from these results. Follow up one week. 10/10/22 1529 <Electronically signed by Bonny Glynn NP PLANE RUNNER-C> Cosigner Signature (if applicable): CC: ~ Signed [facility] Work Phone: 1(704) 228-386002-14-2023 Progress note Author Bonny Glynn [facility] October 03, 2022 4:51pm Note Date/Time September 26, 2022 1 :17pm [facility] [address] [place] [address] Progress Note - Wound Care 09/25/22 1501 MR#: [id number] Acct: [id number] Name: PEDRO HILLMAN Rep #:[id number] : 1945 77 From: Bonny garcia NP PLANE RUNNER-C PCP: Dr. Tonio Fajardo, DO Status:REG RCR Location: ADDENDUM by PLANE RUNNER-C Bonny Glynn on 10/03/22 at 1651 Addendum [place] [address] Procedures Integumentary 150xxx-152xx: 55571 Skin sub graft face/nk/hf/g 10/03/22 1651<Electronically signed by Bonny Glynn NP PLANE RUNNER-C> Cosigner Signature (if applicable): cc: ~* Signed History of Present Illness Date of Service: 09/25/22 Chief Complaint: right foot ulcer History of Wound: This 77-year-old male returns to the wound healing clinic for reoccurrence of a right medial foot ulcer. Wound care has been Moistened Cass covered with Meally SAP dressing. Patient diabetic neuropathic. Patient dealing [...] Method Room Air Charges/Coding Procedures Integumentary 150xxx-152xx: 19325 Skin sub graft trnk/arm/leg Debridement Note Debridement [...] Recorded Date Recorded By Document 09/25/22 14:25 [facility] [id number] 09/25/22 14:32 [facility] 09/25/22 14:25 WC - Today's Visit Information Type of service Follow-up Visit (Physician/WORKERS COMPENSATION DEFENSE ATTORNEY ) Arrival Mode Ambulatory,Cane Transfer Assistance None [...] Recorded Date Recorded By Document 09/25/22 14:25 [facility] [id number] 09/25/22 14:32 [facility] 09/25/22 14:25 Wound Center Nurse 1 #9 [...] Date Recorded By Document 09/25/22 14:42 DORA [id number] 09/25/22 14:51 DORA 09/25/22 14:42 Wound Center [...] Disc -Expiration Date 06/20/27 -Product Lot Number [id number] -Percent Used 100 -Lot number of Saline Used [id number] -Bleeding Controlled with Pressure -Treatment Response Procedure [...] Date Recorded By Document 09/25/22 14:52 DORA [id number] 09/25/22 14:53 09/25/22 14:52 Wound Care Center [...] 1317 <Electronically signed by Bonny Glynn NP PLANE RUNNER-C> Cosigner Signature (if applicable): CC: ~ Signed [facility] Work Phone: 1(403) 635-909002-14-2023 Progress note Author Bonny Glynn [facility] October 03, 2022 4:49pm Note Date/Time October 02, 2022 2:57pm [facility] [address] [place] [address] Progress Note - Wound Care 10/02/22 1457 MR#: [id number] Acct: [id number] Name: PEDRO HILLMAN Rep #:[id number] : 1945 77 From: Bonny garcia NP PLANE RUNNER-C PCP: Dr. Tonio Fajardo, DO Status:REG RCR Location: History of Present Illness Date of Service: 10/02/22 Chief Complaint: right foot ulcer History of Wound: This 77-year-old male returns to the wound healing clinic for reoccurrence of a right medial foot ulcer. Wound care has been Moistened Cass covered with Meally SAP dressing. Patient diabetic neuropathic. Patient dealing [...] Charges/Coding Visit Charges Office Visits / Consults: 54780 OV L3 Est (25 modifier) Procedures Integumentary 150xxx-152xx: 04605 Skin sub graft face/nk/hf/g Physical Exam Const [...] Date Recorded By Document 09/25/22 14:25 BMF [id number] 09/25/22 14:32 [facility] Document 10/02/22 13:28 ML [id number] 10/02/22 13:32 ML 09/25/22 10/02/22 14:25 13:28 - Today's Visit Information Type of service Follow-up Visit Follow-up Visit (Physician/WORKERS COMPENSATION DEFENSE ATTORNEY (Physician/WORKERS COMPENSATION DEFENSE ATTORNEY ) ) Arrival Mode Ambulatory,Cane Cane Transfer [...] Recorded Date Recorded By Document 09/25/22 14:25 [facility] [id number] 09/25/22 14:32 [facility] Document 10/02/22 13:28 ML [id number] 10/02/22 13:32 ML 09/25/22 10/02/22 14:25 13:28 [...] Recorded Date Recorded By Document 09/25/22 14:42 [id number] 09/25/22 14:51 Document 10/02/22 14:14 [id number] 10/02/22 14:17 09/25/22 10/02/22 14:42 14:14 Wound [...] -Expiration Date 06/20/27 05/20/27 -Product Lot Number [id number] -Percent Used 100 100 -Lot number of Saline Used [id number] -Bleeding Controlled with Pressure Pressure -Treatment Response [...] Recorded Date Recorded By Document 09/25/22 14:52 [id number] 09/25/22 14:53 Document 10/02/22 14:18 [id number] 10/02/22 14:19 09/25/22 10/02/22 14:52 14:18 Wound [...] 1649 <Electronically signed by Bonny Glynn NP PLANE RUNNER-C> Cosigner Signature (if applicable): CC: ~ Signed [facility] Work Phone: 1(124) 763-452601-10-2023 Progress note Author Bonnyparris Glynn [facility] August 29, 2022 3:36pm Note Date/Time August 29, 2022 2 :32pm [facility] [address] [place] [address] Progress Note - Wound Care 08/29/22 1429 MR#: [id number] Acct: [id number] Name: PEDRO HILLMAN Rep #:[id number] : 1945 77 From: Bonny garcia NP PLANE RUNNER-C PCP: Dr. Tonio Fajardo, DO Status:REG RCR Location: History of Present Illness Date of Service: 08/29/22 Chief Complaint: right foot ulcer History of Wound: This 77-year-old male returns to the wound healing clinic for reoccurrence of a right medial foot ulcer. Wound care has been Moistened Cass covered with Meally SAP dressing. Patient diabetic neuropathic. Patient dealing [...] Method Room Air Charges/Coding Procedures Integumentary 111xxx-113xx: 86825 Mihaela subq tissue 20 sq cm/< Debridement [...] Start: 08/29/22 13:15 Freq: Status: Active Protocol: URBAN.[email or web address] Activity Type Activity Date Activity User E-sign Co-sign Detail Recorded Client Recorded Date Recorded By Document 08/29/22 13:17 [facility] [id number] 08/29/22 13:22 [facility] 08/29/22 13:17 - Today's Visit Information Type of service Follow-up Visit (Physician/WORKERS COMPENSATION DEFENSE ATTORNEY ) Arrival Mode Ambulatory,Cane Transfer Assistance None [...] Recorded Date Recorded By Document 08/29/22 13:17 [facility] [id number] 08/29/22 13:22 [facility] 08/29/22 13:17 Wound Center Nurse 1 #9 [...] Recorded Date Recorded By Document 08/29/22 13:35 [id number] 08/29/22 13:40 08/29/22 13:35 Wound Center Nurse [...] Date Recorded By Document 08/29/22 13:47 DL [id number] 08/29/22 13:47 DL 08/29/22 13:47 Wound Care [...] help expedite wound healing. [facility] Epifix. Wound care - Silvercel as the primary dressing covered with Meally SAP (secondarydressing) daily after washing foot with [...] if develop any questions or concerns. 08/29/22 2227 <Electronically signed by Bonny Glynn NP PLANE RUNNER-C> Cosigner Signature (if applicable): CC: ~ Signed [facility] Work Phone: 1(428) 188-107112-16-2022 Miscellaneous Notes* Telephone Encounter - Liseth Ortiz [...] advise. Jessie Rodriguez APRN.SHANI documented in this encounterProm[facility]08-20-2022 Miscellaneous Notes* Telephone Encounter - Ashley Mock - 04/08/2022 2:56 PM EDT Notified pt of results, daughter will call to get information on restrictions. Ashley Mock * Telephone Encounter - Ashley Mock - 04/08/2022 9:18 AM EDT left message on machine to give call back, different number from pharmacy. [phone]. Ashley Mock * Telephone Encounter - Ashley Mock - 04/07/2022 5:48 PM EDT Unable to reach patient. Mailbox full/Mailbox not set up/ Number incorrect. Please try again later. 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 documented in this encounterPromedica Flower Hospital08-17-2022 NoteHNO ID: [id number] Author: Jessie Rodriguez APRN.WORKERS COMPENSATION DEFENSE ATTORNEY Service: ? Author Type: Nurse Practitioner Type: [...] - COVID WITH FLUA+B, ROUTINE Jessie Rodriguez APRN.[facility]08-17-2022 NoteHNO ID: [id number] Author: RT Jose Eduardo(R) Service: Nuclear Medicine [...] RT Jose Eduardo(R) April 05, 2022 1:55 [facility]08-17-2022 Influenza virus A and B RNA and SARS-CoV-2 (COVID-19) N gene panel BRYAN+probe (Resp)COVID 19 RESULT: SARS-CoV-2 (Agent of COVID-19) Detected by RT-PCR or equivalent method. anatoly FGMJ-OsP-2_Vhazq [employer] (YASMEEN)_EUA This test was developed and its performance characteristics determined by [facility] [place]. This test has been authorized by FDA under an Emergency Use Authorization (EUA). This test has been validated in accordance with the FDA's Guidance Document Policy for DiagnosticsTesting in Laboratories Certified to Perform High Complexity Testing under CLIA prior to Emergency use Authorization for Coronavirus Disease 2019 during the Public Health Emergency issued on October 18, 2019. Test performed by [facility], Musa [facility] Laboratory Medicine [place], [address] [id number]. INFLUENZA A PCR: Negative for Influenza A by RT-PCR INFLUENZA B PCR: Negative for Influenza B by RT-PCRFulton County Health CenterComment on above: Performed By: #### 51571-2 #### [facility] CLIA [id number] [address] [facility] [place] [address] [place] [id number] Miscellaneous Notes* Telephone Encounter - Jessie Rodriguez APRN.CNP - 04/05/2022 2:58 PM EDT Radiology report faxed to patient's PCP Dr. Tonio Fajardo at [phone]. Confirmation of fax received. Patient was advised to call Dr. Fajardo today for a follow up appointment. Jessie Rodriguez APRN.CNP documented in this encounterPromedica Flower Hospital08-17-2022 Instructions* Patient Instructions* Jessie Rodriguez APRN.CNP [...] ROUTINE Jessie Rodriguez APRN.CNP documented in this encounterPromedica Flower Hospital08-17-2022 History of Present illness Narrative* Jessie [...] - COVID WITH FLUA+B, ROUTINE Jessie Rodriguez APRN.WORKERS COMPENSATION DEFENSE ATTORNEY documented in this encounterPromedica Flower Hospital08-17-2022 History of Present illness Narrative* Yuliana Olivera, RT(R) - 04/05/2022 2:00 PM EDT Radiology [...] 05, 2022 1:55 PM documented in this encounterMemorial [facility]allt note Author Mala Diamond [facility] Note Date/Time March 09, 2025 2:58 pm [facility] Medical Records Department [address] [place] [address] Counseling Note - Pharmacy 03/09/25 1457 MR#: [id number] Acct: [id number] Name: PEDRO HILLMAN Rep #:[id number] : 1945 80 From: Mala Diamond PCP: Dr. 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 Venous insufficiency chronic Ulcer of right foot with fat layer exposed resolved [facility] Work Phone: Evaluation note* Diagnosis Onset [...] right foot with fat layer exposed resolved [facility] Work Phone: Evaluation note* Diagnosis Onset [...] right foot with fat layer exposed resolved [facility] Work Phone: evaluation note* Diagnosis Onset Date Resolution Status Malnutrition [...] 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 [facility] Work Phone: evaluation note* Diagnosis Onset Date Resolution Status Malnutrition [...] right foot with fat layer exposed resolved [facility] Work Phone: Evaluation note* Diagnosis Burning with urination- Primary Dysuria Acute cough Suspected COVID-19 virus infection documented in this encounter [facility]* Diagnosis Onset Date Resolution Status [...] acute Nicotine dependence, cigarettes, in remission acute [facility] Work Phone: Evaluation note* Diagnosis Onset [...] right foot with fat layer exposed resolved [facility] Work Phone: Evaluation note* Diagnosis Onset [...] right foot with fat layer exposed resolved [facility] Work Phone: Evaluation note* Diagnosis Onset [...] of upper lobe of right lung acute [facility] Work Phone: Evaluation note* Diagnosis Onset [...] of upper lobe of right lung acute [facility] Work Phone: Evaluation note* Diagnosis Onset [...] of upper lobe of right lung acute [facility] Work Phone: Evaluation note* Diagnosis Onset [...] chronic Presence of aortocoronary bypass graft 2012 [facility] Work Phone: Evaluation note* Diagnosis Onset Date [...] right foot with fat layer exposed chronic [facility] Work Phone: Evaluation note* Diagnosis Onset [...] right foot with fat layer exposed chronic [facility] Work Phone: Evaluation note* Diagnosis Onset [...] layer exposed chronic Shortness of breath chronic [facility] Work Phone: Evaluation note* Diagnosis Onset [...] of upper lobe of right lung chronic [facility] Work Phone: Evaluation note* Diagnosis Onset [...] of upper lobe of right lung chronic [facility] Work Phone: Evaluation note* Diagnosis Onset [...] right foot with fat layer exposed chronic [facility] Work Phone: Evaluation note* Diagnosis Onset [...] right foot with fat layer exposed chronic [facility] Work Phone: Evaluation note* Diagnosis Onset [...] right foot with fat layer exposed chronic [facility] Work Phone: Evaluation note* Diagnosis Onset [...] right foot with fat layer exposed chronic [facility] Work Phone: Evaluation note* Diagnosis Onset [...] right foot with fat layer exposed chronic [facility] Work Phone: Evaluation note* Diagnosis Onset [...] right foot with fat layer exposed resolved [facility] Work Phone: Evaluation note* Diagnosis Onset [...] right foot with fat layer exposed chronic [facility] Work Phone: Evaluation note* Diagnosis Onset [...] of upper lobe of right lung chronic [facility] Work Phone: Evaluation note* Diagnosis Onset Date Resolution Status Irregular heart rate acute COPD (chronic obstructive pulmonary disease) chronic 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 [facility] Work Phone: Hospital Discharge instructions Additional Instructions 1. Keep your postoperative dressing clean dry and intact 2. Continue strict glycemic control. 3. Partial weightbearing to heel with surgical shoe, use walker or crutches 4. Reach out to Dr. Suárez with any questions or concerns and follow-up in 1 week in clinic. [facility] Work Phone: Reason for referral (narrative)No reason for referral information availableWProtestant Deaconess Hospital Work Phone: Chief Complaint and Reason [...] 1 2:50pm Peripheral vascular occlusive disease Fe brulyon 2024 12:50pm Presence of aortocoronary bypass graft [email or web address] 2024 12:50pm Hypoxia October 23, 2024 2:10 [...] 04 7:57pm Atherosclerosis of coronary artery of [place] heart without angina pectoris March 04, 2025 [...] 2025 7:57pm Atherosclerosis of coronary artery of [place] heart without angina pectoris March 04, 2025 [...] 15, 2025 4:56 pm 6 M FU/S/P [facility] 03/09March 17, 2025 12: 51pm Reason [...] 2025 7:57pm Atherosclerosis of coronary artery of [place] heart without angina pectoris March 04, 2025 7:57pm CHF exacerbation March 04, 2025 7:57 pm Hypertension March 04, 2025 7:57 pm Peripheral arterial disease March 04, 025 7:57pm Other persistent atrial fibrillation Feb 12:51pm [...] 15, 2025 4:56 pm 6 M FU/S/P [facility] 03/09March 17, 2025 12: 51pm atrial fibrillation March 27, 2025 8:3 7am Chief Complaint Admit Date AE CHF, ATRIAL [...] 15, 2025 4:56 pm 6 M FU/S/P [facility] 03/09March 17, 2025 12: 51pm atrial fibrillation March 27, 2025 8:3 7am AE OF CHRONIC DIASTOLIC CHF, ELEVATED TR OPONIN T April 05, 2025 7:55pm Reason for Visit Admit Date Acute cystitis [...] 2025 7:57pm Atherosclerosis of coronary artery of [place] heart without angina pectoris March 04, 2025 7:57pm CHF exacerbation March 04, 2025 7:57 pm Hypertension March 04, 2025 7:57 pm Peripheral arterial disease March 04, 025 7:57pm Other persistent atrial fibrillation Feb 12:51pm Hyperlipidemia March 17, 2025 12:5 1pm Hypertension March 17, 2025 12:5 1pm Peripheral vascular occlusive disease Ju ly 2024 12:51pm Presence of aortocoronary bypass graft J shanda 2024 12:51pm Elevated troponin April 05, 2025 7: 55pm Hyperkalemia April 05, 2025 7: 55pm Overweight (BMI 25.0-29.9) April 05, 2025 7:55pm Respiratory insufficiency April 05, 2 025 7:55pm Acute on chronic diastolic congestive he art failure April 05, 2025 7:55pm Chronic atrial fibrillation April 05, 2025 7:55pm Presence of aortocoronary bypass graft A ugust 2024 7:55pm Chief Complaint Admit Date AE CHF, ATRIAL [...] 15, 2025 4:56 pm 6 M FU/S/P [facility] 03/09March 17, 2025 12: 51pm atrial fibrillation March 27, 2025 8:3 7am atrial fibrillation March 27, 2025 8:5 4am AE OF CHRONIC DIASTOLIC CHF, ELEVATED TR OPONIN T April 05, 2025 7:55pm AE OF CHRONIC DIASTOLIC CHF, ELEVATED TR OPONIN T April 06, 2025 8:37am AE OF CHRONIC DIASTOLIC CHF, ELEVATED TR OPONIN T April 07, 2025 11:13am AE OF CHRONIC DIASTOLIC CHF, ELEVATED TR OPONIN T April 08, 2025 7:57am AE OF CHRONIC DIASTOLIC CHF, ELEVATED TR OPONIN T April 08, 2025 7:06pm AE OF CHRONIC DIASTOLIC CHF, ELEVATED TR OPONIN T April 09, 2025 11:25am AE OF CHRONIC DIASTOLIC CHF, ELEVATED TR OPONIN T April 09, 2025 3:17pm AE OF CHRONIC DIASTOLIC CHF, ELEVATED TR OPONIN T April 10, 2025 7:50am 1st day post implant check April 10, 2025 11:14am Reason for Visit Admit Date Acute cystitis [...] 2025 7:57pm Atherosclerosis of coronary artery of [place] heart without angina pectoris March 04, 2025 7:57pm CHF exacerbation March 04, 2025 7:57 pm Hypertension March 04, 2025 7:57 pm Peripheral arterial disease March 04, 025 7:57pm Other persistent atrial fibrillation Feb 12:51pm Hyperlipidemia March 17, 2025 12:5 1pm Hypertension March 17, 2025 12:5 1pm Peripheral vascular occlusive disease Ju ly 2024 12:51pm Presence of aortocoronary bypass graft J shanda 2024 12:51pm Acute cystitis without hematuria April 05, 2025 7:55pm DARIUSZ (acute kidney injury) April 05, 2 025 7:55pm Chronic anticoagulation April 05 7:55pm Coronary artery disease April 05 7:55pm Elevated troponin April 05, 2025 7: 55pm Heart block AV complete April 05 7:55pm Hyperkalemia April 05, 2025 7: 55pm Overweight (BMI 25.0-29.9) April 05, 2025 7:55pm Respiratory insufficiency April 05, 2 025 7:55pm Acute on chronic diastolic congestive he art failure April 05, 2025 7:55pm Chronic atrial fibrillation April 05, 2025 7:55pm CKD (chronic kidney disease), stage IV A ugust 2024 7:55pm Presence of aortocoronary bypass graft A ugust 2024 7:55pm Heart block AV complete April 10 11:14am Presence of cardiac pacemaker March 11:14am Chief Complaint Admit Date AE CHF, ATRIAL [...] 15, 2025 4:56 pm 6 M FU/S/P [facility] 03/09March 17, 2025 12: 51pm atrial fibrillation March 27, 2025 8:3 7am atrial fibrillation March 27, 2025 8:5 4am AE OF CHRONIC DIASTOLIC CHF, ELEVATED TR OPONIN T April 05, 2025 7:55pm AE OF CHRONIC DIASTOLIC CHF, ELEVATED TR OPONIN T April 06, 2025 8:37am AE OF CHRONIC DIASTOLIC CHF, ELEVATED TR OPONIN T April 07, 2025 11:13am AE OF CHRONIC DIASTOLIC CHF, ELEVATED TR OPONIN T April 08, 2025 7:57am AE OF CHRONIC DIASTOLIC CHF, ELEVATED TR OPONIN T April 08, 2025 7:06pm AE OF CHRONIC DIASTOLIC CHF, ELEVATED TR OPONIN T April 09, 2025 11:25am AE OF CHRONIC DIASTOLIC CHF, ELEVATED TR OPONIN T April 09, 2025 3:17pm AE OF CHRONIC DIASTOLIC CHF, ELEVATED TR OPONIN T April 10, 2025 7:50am 1st day post implant check April 10, 2025 11:14am ACCUTE EXACHERBATION CHF April 10 6:33pm Advance Directives No Advanced Directives Records Found Advance Directive Response Recorded Date/ Time Advance Directives No February 17 4 11:03am Living Will No February 17, 2014 1 1:03am Power of Labor Service Representative No February 17, 2014 11:03am Advance Directive Response Recorded Date/ Time Name of Medical Power of Labor Service Representative SON April 14, 2022 8:29am Advance Directives No February 17 4 11:03am Living Will No April 14 8:29am Power of Labor Service Representative Yes April 14 8:29am Advance Directive Response Recorded Date/ Time Name of Medical Power of Labor Service Representative SON April 14, 2022 7:29am Advance Directives No February 17 4 10:03am Living Will No April 14 2 7:29am Power of Labor Service Representative Yes April 14 7:29am Advance Directive Response Recorded Date/ Time Advance Directives No February 17 4 10:03am Living Will No April 14 2 7:29am Power of Labor Service Representative Yes April 14 7:29am Advance Directive Response Recorded Date/ Time Advance Directives No February 17 4 11:03am Living Will No April 14 2 8:29am Power of Labor Service Representative Yes April 14 8:29am Advance Directive Response Recorded Date/ Time Name of Medical Power of Labor Service Representative Gideon Calderon December 30, 2022 10:39pm Advance Directives No February 17 4 11:03am Living Will Yes December 30, 2022 1 0:39pm Power of Labor Service Representative Yes December 30, 2022 10:39pm Advance Directive Response Recorded Date/ Time Advance Directives No February 17 4 11:03am Living Will Yes December 30, 2022 1 0:39pm Power of Labor Service Representative Yes December 30, 2022 10:39pm Advance Directive Response Recorded Date/ Time Advance Directives No February 17 4 10:03am Living Will Yes December 30, 2022 9 :39pm Power of Labor Service Representative Yes December 30, 2022 9:39pm Advance Directive Response Recorded Date/ Time Living Will Yes December 30, 2022 1 0:39pm Power of Labor Service Representative Yes December 30, 2022 10:39pm Advance Directives No February 17 11:03am Advance Directive Response Recorded Date/ Time Living Will Yes December 30, 2022 1 0:39pm Do you have a Healthcare Power of Labor Service Representative? Yes December 30, 2022 10:39pm Living Will No April 14 8:29am Do you have a Healthcare Power of Labor Service Representative? Yes April 14, 2022 8:29am Advance Directives No February 17 11:03am Advance Directive Response Recorded Date/ Time Living Will No April 14 8:29am Do you have a Healthcare Pow er of Labor Service Representative? Yes April 14, 2022 8:29am Do you have a Healthcare Pow er of Labor Service Representative? Yes March 04, 2025 2:58pm Name of Medical Power of Labor Service Representative Ed Daja olmstead March 04, 2025 2:58pm Advance Directives No February 17 11:03am Advance Directive Response Recorded Date/ Time Do you have a Healthcare Power of Labor Service Representative? Yes March 04, 2025 9:11pm Name of Medical Power of Labor Service Representative Ed Daja olmstead March 04, 2025 2:58pm Advance Directives No February 17 11:03am Advance Directive Response Recorded Date/ Time Do you have a Healthcare Power of Labor Service Representative? Yes March 04, 2025 9:11pm Name of Medical Power of Labor Service Representative Ed Daja olmstead March 04, 2025 2:58pm Do you have a Healthcare Power of Labor Service Representative? Yes March 15, 2025 5:04pm Name of Medical Power of Labor Service Representative Ed Daja March 15, 2025 5:04pm Advance Directives No February 17 11:03am Advance Directive Response Recorded Date/ Time Do you have a Healthcare Pow er of Labor Service Representative? Yes March 04, 2025 9:11pm Name of Medical Power of Labor Service Representative Ed Daja olmstead March 04, 2025 2:58pm Do you have a Healthcare Pow er of Labor Service Representative? Yes April 05, 2025 4:49pm Do you have a Healthcare Pow er of Labor Service Representative? Yes March 15, 2025 5:04pm Name of Medical Power of Labor Service Representative Gideon Farnsworth March 15, 2025 5:04pm Advance Directives No February 17 4 11:03am Advance Directive Response Recorded Date/ Time Do you have a Healthcare Pow er of Labor Service Representative? Yes March 04, 2025 9:11pm Name of Medical Power of Labor Service Representative Ed Daja step son March 04, 2025 2:58pm Do you have a Healthcare Pow er of Labor Service Representative? Yes April 05, 2025 8:49pm Do you have a Healthcare Pow er of Labor Service Representative? Yes March 15, 2025 5:04pm Name of Medical Power of Labor Service Representative Gideon Farnsworth March 15, 2025 5:04pm Advance [...] or prosecute any alcohol or drug abuse patient.[facility] the event this information is protected by the Federal Confidentiality of Alcohol and Drug Abuse Patient Records regulations: The Federal rules restrict any use of the information to criminally investigate or prosecute any alcohol or drug abuse patient.[facility] the event this information is protected by the Federal Confidentiality of Alcohol and Drug Abuse Patient Records regulations: The Federal rules restrict any use of the information to criminally investigate or prosecute any alcohol or drug abuse patient.[facility] the event this information is protected by the Federal Confidentiality of Alcohol and Drug Abuse Patient Records regulations: The Federal rules restrict any use of the information to criminally investigate or prosecute any alcohol or drug abuse patient.[facility] the event this information is protected by the Federal Confidentiality of Alcohol and Drug Abuse Patient Records regulations: The Federal rules restrict any use of the information to criminally investigate or prosecute any alcohol or drug abuse patient.[facility] Reason for Visit (unrecogniz ed section and content) Reason Comments Results Reason Comments Urinary Problem burning with urinati on x 1 week nasal congestion and drainage x 1 week Reason Comments Results COVID+ Reason Comments Patient Update Care Teams (unrecognized sec tion and content) Tower Cleaner Relationship Specialty Start Date End Date Tonio FajardoDO [address] [place], [place] [id number] PCP - General Family Practice 04/05/22 Tower Cleaner Relationship Specialty Start Date End Date Tonio FajardoDO [address] [place], [place] [phone] PCP - General Family Practice 04/05/22 Tower Cleaner Relationship Specialty Start Date End Date Tonio Fajardo [address] [address] PCP - General Family Practice 04/05/22 Tower Cleaner Relationship Specialty Start Date End Date Tonio Fajardo DO [address] [place] [address] PCP - General Family Medicine 04/05/22 Team Status: Active Member Role Status Dates Dr. Tonio Fajardo DO Family Provider Active Dr. Tonio Fajardo DO Primary Care Provider Active Team Status: Inactive Member Role Status Dates Dr. Tonio Fajardo , DO Primary Care Provider, Referrin g Provider Active Iker Rodriguez PLANE RUNNER, PLANE RUNNER-C Attending Provider Active Team Status: Inactive Member [...] DO Primary Care Provider Active Bonny Glynn PLANE RUNNER, PLANE RUNNER-C Attending Pro vider, Referring Provider, Other Provider [...] Fajardo DO Primary Care Provider Active Bonny E Renard PLANE RUNNER, PLANE RUNNER-C Attending Provider Active Team Status: Active Member [...] , DO Primary Care Provider Active Bonny E Renard PLANE RUNNER, PLANE RUNNER-C Attending Provider Active Team Status: Inactive Member Role Status Dates Dr. Tonio Fajardo DO Primary Care Provider Active Bonny E Renard PLANE RUNNER, PLANE RUNNER-C Attending Provider, Referri ng Provider Active Team Status: Inactive Member Role Status Dates Dr. Tonio Fajardo , DO Primary Care Provider, Referrin g Provider Active Dr. Tyrell Uriarte , DO Attending Provider Active Team Status: Active Member Role Status Dates Dr. Tonio Fajardo , DO Primary Care Provider Active Bonnyap PeresRenard PLANE RUNNER, PLANE RUNNER-C Attending Provider, Other P rovider Active Team [...] Primary Care Provider, Referrin g Provider Active Bonnyap Pintoell PLANE RUNNER, PLANE RUNNER-C Attending Provider Active Team Status: Inactive Member [...] Provider, Referrin g Provider Active Lorie Mart PLANE RUNNER, PLANE RUNNER-C Attending Provider Active Team Status: Inactive Member Role Status Dates Dr. Tonio Fajardo DO Primary Care Provider, Referrin g Provider Active Leslie Arriaga PA, PA Attending Provider Active Team Status: Inactive Member Role Status Dates Dr. Tonio Fajardo DO Primary Care Provider Active Lorie Mart PLANE RUNNER, PLANE RUNNER-C Attending Provider, Referrin g Provider Active Team [...] Dr. Joaquim Suárez DPM Attending Provider Active Tower Cleaner Relationship Specialty Start Date End Date Tonio Fajardo DO [address] [place] [address] PCP - General Family Medicine 04/05/22 Team [...] 2024 End: September 25, 2024 Leslie Arriaga PA PA Referring Provider Active Start: September 25, 2024 End: September 25, 2024 Team Status: Inactive Member Role Status Dates Dr. Tonio Fajardo DO Primary Care Provider Active Start: October 16, 2024 End: October 16, 2024 Lorie Mart PLANE RUNNER, PLANE RUNNER-C Attending Provider Active Start: October 16, 2024 End: October 16, 2024 Lorie Mart PLANE RUNNER, PLANE RUNNER-C Referring Provider Active Start: October 16, 2024 End: October 16, 2024 Team Status: Active Member Role Status Dates Dr. Tonio Fajardo DO Primary Care Provider Active Start: October 17, 2024 Lorie Mart PLANE RUNNER, PLANE RUNNER-C Referring Provider Active Start: October 17, 2024 Lorie Mart PLANE RUNNER, PLANE RUNNER-C Other Provider Active Start: October 17, 2024 [...] 2024 End: October 23, 2024 Lorie Mart PLANE RUNNER, PLANE RUNNER-C Attending Provider Active Start: October 23, 2024 [...] 04, 2025 End: March 09, 2025 Iker Rodriguez PLANE RUNNER, PLANE RUNNER-C Other Provider Active Start : March 04, [...] Active Start: March 05, 2025 Iker Rodriguez PLANE RUNNER, PLANE RUNNER-C Other Provider Active Start : March 05, [...] Active S tart: March 06, 2025 Dr. Nicoal Lindsey DO Admit Provider Active Start: March [...] Active Start: March 06, 2025 Iker Rodriguez PLANE RUNNER, PLANE RUNNER-C Other Provider Active Start : March 06, [...] Provider Active Start: March 06, 2025 Iker H Roof PLANE RUNNER, PLANE RUNNER-C Other Provider Active Start : March 06, [...] Active Start: March 07, 2025 Iker Rodriguez PLANE RUNNER, PLANE RUNNER-C Other Provider Active Start : March 07, [...] Active Star t: March 08, 2025 Dr. Maritn Vivas MD Other Provider Active Sta rt: [...] Active Start: March 08, 2025 Iker Rodriguez PLANE RUNNER, PLANE RUNNER-C Other Provider Active Start : March 08, [...] Active Start: March 08, 2025 Iker Rodriguez PLANE RUNNER, PLANE RUNNER-C Other Provider Active Start : March 08, [...] Active Start: March 09, 2025 Iker Rodriguez PLANE RUNNER, PLANE RUNNER-C Other Provider Active Start : March 09, [...] Active Start: March 09, 2025 Iker Rodriguez PLANE RUNNER, PLANE RUNNER-C Other Provider Active Start : March 09, [...] Provider Active Start: March 27, 2025 Leslie DAMIAN PA Attending Provider Active Start: March 27, 2025 Leslie DAMIAN PA Referring Provider Active Start: March 27, 2025 Team Status: Inactive Member Role/Relationship Status Dates Dr. Tonio Fajardo DO Primary Care Provider Active Start: March 27, 2025 End: March 27, 2025 Leslie DAMIAN, PA Attending Provider Active Start: March 27, 2025 End: March 27, 2025 Leslie Arriaga PA, PA Referring Provider Active Start: March 27, 2025 End: March 27, 2025 Team Status: Active Member Role/Relationship Status Dates Dr. Tonio Fajardo DO Primary Care Provider Active Start: April 02, 2025 Carmelina E Aida Attending Provider Active Start: April 02, 2025 Carmelina E Aida Referring Provider Active Start: April 02, 2025 Team Status: Active Member Role/Relationship Status Dates Dr. Tonio Fajardo DO Primary Care Provider Active Start: April 05, 2025 Dr. Ld Hayes DO Emergency Provider Active Start : April 05, 2025 Dr. Nicola Lindsey DO Admit Provider Active Start: April 05, 2025 Dr. Nicola Lindsey DO Attending Provider Active Start: April 05, 2025 Team Status: Active Member Role/Relationship Status Dates Dr. Tonio Fajardo DO Primary Care Provider Active Start: March 27, 2025 Dr. Issa Looney MD Attending Provider Active S tart: March 27, 2025 Leslie DAMIAN, PA Referring Provider Active Start: March 27, 2025 Team Status: Active Member Role/Relationship Status Dates Dr. Tonio Fajardo DO Primary Care Provider Active Start: April 02, 2025 Carmelina E Aida Attending Provider Active Start: April 02, 2025 Carmelina E Aida Referring Provider Active Start: April 02, 2025 Team Status: Inactive Member Role/Relationship Status Dates Dr. Tonio Fajardo DO Primary Care Provider Active Start: April 05, 2025 End: April 10, 2025 Dr. Ld Hayes DO Emergency Provider Active Start : April 05, 2025 End: April 10, 2025 Dr. Nicola Lindsey DO Admit Provider Active Start: April 05, 2025 End: April 10, 2025 Dr. Nicola Lindsey DO Other Provider Active Start: April 05, 2025 End: April 10, 2025 Dr. Davon Saravia MD Other Provider Active Start: April 05, 2025 End: April 10, 2025 Dr. Nicola Roman MD Attending Provider Active Start: April 05, 2025 End: April 10, 2025 Dr. Deric Lantigua MD Other Provider Active Sta rt: April 05, 2025 End: April 10, 2025 Dr. Issa Looney MD Other Provider Active Start : April 05, 2025 End: April 10, 2025 Team Status: Active Member Role/Relationship Status Dates Dr. Tonio Fajardo DO Primary Care Provider Active Start: April 06, 2025 Dr. Ld Hayes DO Emergency Provider Active Start : April 06, 2025 Dr. Nicola Lindsey DO Admit Provider Active Start: April 06, 2025 Dr. Nicola Lindsey DO Other Provider Active Start: April 06, 2025 Dr. Davon Saravia MD Other Provider Active Start: April 06, 2025 Dr. Deric Lantigua MD Attending Provider Active Start: April 06, 2025 Dr. Deric Lantigua MD Other Provider Active Sta rt: April 06, 2025 Team Status: Active Member Role/Relationship Status Dates Dr. Tonio Fajardo DO Primary Care Provider Active Start: April 07, 2025 Dr. Ld Hayes DO Emergency Provider Active Start : April 07, 2025 Dr. Nicola Lindsey DO Admit Provider Active Start: April 07, 2025 Dr. Nicola Lindsey DO Other Provider Active Start: April 07, 2025 Dr. Davon Saravia MD Other Provider Active Start: April 07, 2025 Dr. Nicola Roman MD Attending Provider Active Start: April 07, 2025 Dr. Nicola Roman MD Other Provider Active Star t: April 07, 2025 Dr. Deric Lantigua MD Other Provider Active Sta rt: April 07, 2025 Team Status: Active Member Role/Relationship Status Dates Dr. Tonio Fajardo DO Primary Care Provider Active Start: April 08, 2025 Dr. Ld Hayes DO Emergency Provider Active Start : April 08, 2025 Dr. Nicola Lindsey , DO Admit Provider Active Start: April 08, 2025 Dr. Nicola Lindsey DO Other Provider Active Start: April 08, 2025 Dr. Davon Saravia MD Other Provider Active Start: April 08, 2025 Dr. Nicola Roman MD Attending Provider Active Start: April 08, 2025 Dr. Nicola Roman MD Other Provider Active Star t: April 08, 2025 Dr. Deric Lantigua MD Other Provider Active Sta rt: April 08, 2025 Team Status: Active Member Role/Relationship Status Dates Dr. Tonio Fajardo DO Primary Care Provider Active Start: April 08, 2025 Dr. Ld Hayes DO Emergency Provider Active Start : April 08, 2025 Dr. Nicola Lindsey DO Admit Provider Active Start: April 08, 2025 Dr. Nicola Lindsey DO Other Provider Active Start: April 08, 2025 Dr. Davon Saravia MD Other Provider Active Start: April 08, 2025 Dr. Nicola Roman MD Other Provider Active Star t: April 08, 2025 Dr. Deric Lantigua MD Other Provider Active Sta rt: April 08, 2025 Dr. Issa Looney MD Attending Provider Active S tart: April 08, 2025 Dr. Issa Looney MD Other Provider Active Start : April 08, 2025 Team Status: Active Member Role/Relationship Status Dates Dr. Tonio Fajardo DO Primary Care Provider Active Start: April 09, 2025 Dr. Ld Hayes DO Emergency Provider Active Start : April 09, 2025 Dr. Nicola Lindsey DO Admit Provider Active Start: April 09, 2025 Dr. Nicola Lindsey DO Other Provider Active Start: April 09, 2025 Dr. Davon Saravia MD Other Provider Active Start: April 09, 2025 Dr. Nicola Roman MD Attending Provider Active Start: April 09, 2025 Dr. Nicola Roman MD Other Provider Active Star t: April 09, 2025 Dr. Deric Lantigua MD Other Provider Active Sta rt: April 09, 2025 Dr. Issa Looney MD Other Provider Active Start : April 09, 2025 Team Status: Active Member Role/Relationship Status Dates Dr. Tonio Fajardo DO Primary Care Provider Active Start: April 09, 2025 Dr. Ld Hayes DO Emergency Provider Active Start : April 09, 2025 Dr. Nicola Lindsey DO Admit Provider Active Start: April 09, 2025 Dr. Nicola Lindsey DO Other Provider Active Start: April 09, 2025 Dr. Davon Saravia MD Other Provider Active Start: April 09, 2025 Dr. Nicola Roman MD Other Provider Active Star t: April 09, 2025 Dr. Deric Lantigua MD Other Provider Active Sta rt: April 09, 2025 Dr. Issa Looney MD Other Provider Active Start : April 09, 2025 Dr. Santos Hsu MD Attending Provider Active Start: April 09, 2025 Team Status: Active Member Role/Relationship Status Dates Dr. Tonio Fajardo DO Primary Care Provider Active Start: April 10, 2025 Dr. Ld Hayes DO Emergency Provider Active Start : April 10, 2025 Dr. Nicola Lindsey DO Admit Provider Active Start: April 10, 2025 Dr. Nicola Lindsey DO Other Provider Active Start: April 10, 2025 Dr. Davon Saravia MD Other Provider Active Start: April 10, 2025 Dr. Nicola Roman MD Attending Provider Active Start: April 10, 2025 Dr. Nicola Roman MD Other Provider Active Star t: April 10, 2025 Dr. Deric Lantigua MD Other Provider Active Sta rt: April 10, 2025 Dr. Issa Looney MD Other Provider Active Start : April 10, 2025 Team Status: Active Member Role/Relationship Status Dates Dr. Tonio Fajardo DO Primary Care Provider Active Start: April 10, 2025 Dr. Tonio Fajardo DO Referring Provider Active Start: April 10, 2025 Carol Sousa Attending Provider Active Start: [place] [id number] Team Status: Inactive Member Role/Relationship Status Dates Dr. Tonio Fajardo DO Primary Care Provider Active Start: April 02, 2025 End: April 02, 2025 Carmelina E Aida Attending Provider Active Start: April 02, 2025 End: April 02, 2025 Carmelina E Aida Referring Provider Active Start: April 02, 2025 End: April 02, 2025 Team Status: Active Member Role/Relationship Status Dates Dr. Tonio Fajardo , Primary Care Provider Active Start: April 10, 2025 Dr. Valdez Olivo MD Admit Provider Active Star t: April 10, 2025 Dr. Valdez Olivo MD Attending Provider Active Start: April 10, 2025 (unrecognized sect ion and content) No Status Records FoundNo Status Records Found INFORMATION SOURCE (unrecogn ized section and content) DATE CREATED AUTHOR 08/12/2022 [facility] DATE CREATED AUTHOR AUTHOR'S ORGANIZ ATION 04/10/2025 [facility] FOR RECORDS PERTAINING TO PATIENTS WHO [...] BE BASED ON THE PRIMARY CLINICAL RECORDS. [facility] [employer] provides no warranty or guarantee of the accuracy or completeness of information in this document.
[2025-04-12 20:04] VITALS: BP 141/76; PULSE 111; RESP 40; O2SAT 100
[2025-04-12 20:11] LABS: Anion Gap 9 (5-15); BUN 60 mg/dL (4-19); BUN/Creat Ratio 41.9 RATIO (10-20); Calcium,Total 8.7 mg/dL (7.6-11.0); Carbon Dioxide 36.5 mmol/L (21.0-32.0); Chloride 93 mmol/L (98-108); Estimated Creatinine Clearance 37.18 ml/min (50-250); Glucose 189 mg/dL (70-99); Potassium 4.3 mmol/L (3.3-5.1); Pro- Brain NATRIURETIC PEPTIDE 7022 pg/mL (<=1800)
[2025-04-12 20:37] LABS: Troponin T High Sensitivity 103 ng/L (<=22)
--- NOTE | 2025-04-12 20:37 | ED.RN ---
Critical Troponin of [address] Brownlee notified.
[2025-04-12 22:00] VITALS: BP 134/80; PULSE 110; RESP 25; O2SAT 100
[2025-04-12 22:34] LABS: Troponin T High Sens 2 HR 98 ng/L (<=22)
[2025-04-12] MEDS: Piperacil/Tazobactam 4.5 GM in 0.9% Normal Saline (100mL MB+) 100 ML IV (23:03)
[2025-04-12] MEDS: Vancomycin HCl 1,000 MG in 0.9% Normal Saline (250mL Bag) 250 ML 250 MG IV (23:51)
[2025-04-12] MEDS: 0.9% Normal Saline (1000mL) 1,000 ML 999 ML IV (23:51)
[2025-04-13] VITALS: BP 144/83; PULSE 108; RESP 19; O2SAT 100
[2025-04-13 00:56] VITALS: BP 129/71; PULSE 106; RESP 21; TEMP 36.6; O2SAT 100
[2025-04-13 02:37] VITALS: O2SAT 100
== END 2025-04-13 04:11 | disposition other institution (70) ==
PROVIDERS: Emergency Provider Emergency Medicine; PCP Family Medicine; Visit Provider Emergency Medicine
DX: J93.9 Pneumothorax, unspecified (principal); I13.0 Hypertensive heart and chronic kidney disease with heart failure and stage 1 through stage 4 chronic kidney disease, or unspecified chronic kidney disease; I50.9 Heart failure, unspecified; J44.0 Chronic obstructive pulmonary disease with (acute) lower respiratory infection; I48.91 Unspecified atrial fibrillation; E11.51 Type 2 diabetes mellitus with diabetic peripheral angiopathy without gangrene; E11.42 Type 2 diabetes mellitus with diabetic polyneuropathy; E11.22 Type 2 diabetes mellitus with diabetic chronic kidney disease; Z79.4 Long term (current) use of insulin; N18.30 Chronic kidney disease, stage 3 unspecified; I25.10 Atherosclerotic heart disease of native coronary artery without angina pectoris; E78.5 Hyperlipidemia, unspecified; K21.9 Gastro-esophageal reflux disease without esophagitis; N40.0 Benign prostatic hyperplasia without lower urinary tract symptoms; Z79.01 Long term (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 of anticoagulants; Z79.02 Long term (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 of 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/antiplatelets; Z79.899 Other long term (current) drug therapy; Z87.891 Personal history of nicotine dependence; Z99.81 Dependence on supplemental oxygen; Z95.0 Presence of cardiac pacemaker; Z95.1 Presence of aortocoronary bypass graft; J18.9 Pneumonia, unspecified organism
CPT/HCPCS: 71250; 80048; 83880; 84484; 85025; 93005; 96365; 96366; 96367; 99285; A4216

== ENCOUNTER 2025-04-17 18:19 | Inpatient (IN) | payer MEDICARE, OTHER, SELFPAY ==
[2025-04-17 17:52] VITALS: PULSE 99; RESP 18; O2SAT 99
[2025-04-17 18:17] VITALS: BP 109/51; PULSE 104; RESP 20; TEMP 36.8; O2SAT 98; BMI 23.8
--- NOTE | 2025-04-17 19:41 | HP.PCM_ITS ---
HPI - General General Date of Admission: 04/17/25 Date of Service: 04/18/25 Chief Complaint: Here for rehabilitation. HPI Narrative PEDRO HILLMAN, is a 80 Male who presents with followin04/12/2025 [facility] ED TCU resident shortness of breath, hypoxia, tachycardia. Diagnosed with pneumothorax, pneumonia, acute on chronic HFpEF, COPD exacerbation. Transfer to [facility] 2/2 complicated pneumothorax. 04/13/2025 Admit [facility]. Ceftriaxone, Azithromycin, blood cultures, urinary antigens for strep pneumo, legionella, for sepsis, pneumonia. Consult CT surgery for loculated pleural effusion, pneumothorax. Hold Eliquis in case of surgery. EKG, trend troponin for elevated troponin. 04/14/2025 CT surgery recommended no surgery for pneumothorax. 04/14/2025 Oxygen 3 liters per nasal cannula. Chest X-ray showed moderate pulmonary edema, small left. Right moderate pleural effusion, small right apical pneumothorax. Tachycardic with heart rate in the 100's. Ceftriaxone, stop Azithromycin, urine antigens negative for atypical pneumonia. Lasix 20mg IV x 1 dose, then Lasix 40mg daily for acute HFpEF. Consider repeat thoracentesis. Troponin flat, 2/2 demand ischemia. Increase Metoprolol to 25mg po bid, Hold Eliquis for atrial fibrillation, tachycardia. Heparin if chest tube necessary. 04/15/2025 Ultrasound guided thoracentesis removed 1000mL fluid. 04/15/2025 Ceftriaxone IV for pneumonia. Pneumothorax resolved. CT surgery recommended no surgery for pleural effusion, if pleural effusion recurrent, may need IR guided pleural catheter placement. Lasix 40mg, Metolazone x 1 for acute HFpEF. Troponin flat. 04/16/2025 Ceftriaxone IV for pneumonia. Repeat Chest X-ray tomorrow. SHELLY compression, bilateral lower extremity edema. Metoprolol 25mg bid, heparin for atrial fibrillation. Restart Eliquis tomorrow if no intervention needed. 04/17/2025 Admit to TCU with debility, here for rehabilitation, strengthening, prior to discharge home alone. [facility] Medical History (Updated 04/18/25 @ 00:01 by Background Daemon) Presence of cardiac pacemaker Peripheral arterial disease Other persistent atrial fibrillation New onset atrial flutter COVID Wears hearing aid in both ears Former smoker Coronary artery disease Peripheral vascular occlusive disease BPH (benign prostatic hyperplasia) Chronic kidney disease, stage 3 Atherosclerosis of coronary artery of [place] heart without angina pectoris Hyperlipidemia Lower extremity edema Venous insufficiency Malnutrition Delayed wound healing Osteomyelitis of ankle, left, acute Ulcer of left lower extremity with fat layer exposed Type 2 diabetes mellitus with diabetic polyneuropathy Anemia GERD (gastroesophageal reflux disease) Hypertension Home Medications ?Medication ?Instructions ?Recorded ?Last Taken ?Type insulin glargine 100 unit/mL 30 unit SQ QHS diabetes 0 11/19/19 03/03/25 History subcutaneous solution multivitamin (Daily Multi-Vitamin 1 tab PO DAILY suppl ement 06/28/20 03/03/25 History tablet) sitagliptin phosphate 50 mg tablet 50 mg PO DAILY diab etes 11/02/21 03/03/25 History (Januvia) pravastatin 20 mg tablet 20 mg PO DAILY hyperlipidemi a 01/17/22 03/03/25 History cranberry 500 mg capsule 500 mg PO DAILY supplement 1 09/25/22 03/03/25 History docusate sodium 100 mg capsule 100 mg PO DAILY PRN sto ol softner 07/25/23 Unknown History (Colace) albuterol sulfate 90 mcg/actuation 2 puff inhalation Q 4H PRN 10/23/24 Unknown Rx aerosol inhaler shortness of breath or wheez ing #3 device umeclidinium 62.5 mcg-vilanterol 1 inh inhalation QDAY copd #60 ea 10/23/24 04/08/25 Rx 25 mcg/actuation powdr for inhalation (Anoro Ellipta) apixaban 5 mg tablet (Eliquis) 2.5 mg (1/2 x 5 mg) PO BID blood 03/09/25 Unknown Rx thinner 30 days #30 tabs tamsulosin 0.4 mg capsule 0.4 mg PO DAILY@1730 prostat e 30 03/09/25 Unknown Rx days #30 caps metoprolol succinate 25 mg 12.5 mg (1/2 x 25 mg) PO BI D blood 04/03/25 Unknown Rx tablet,extended release 24 hr thinner #90 tabs clopidogrel 75 mg tablet 75 mg PO DAILY anti platelet 04/05/25 Unknown History insulin glargine 100 unit/mL (3 30 unit subcut QHS Blo od sugar 04/05/25 Unknown History mL) subcutaneous pen (Lantus Solostar U-100 Insulin) furosemide 40 mg tablet (Lasix) 40 mg PO DAILY diureti c #60 tabs 04/08/25 Unknown Rx guaifenesin 600 mg tablet, 1,200 mg (2 x 600 mg) PO BI D mucus 04/08/25 Unknown Rx extended release 12 hr (Mucinex) #20 tabs OXYGEN - Supplemental ([facility] 04/09/25 Unknown History INFORMATIONAL USE ONLY) aspirin 81 mg chewable tablet 1 tab PO DAILY Heart hea lth 04/17/25 Unknown History ipratropium 0.5 mg-albuterol 3 mg 3 ml inhalation Q8H SOB 04/17/25 Unknown History (2.5 mg base)/3 mL nebulization soln lanolin alcohols-mineral 1 applic topical BID dry ski n 04/17/25 Unknown History oil-w.petrolatum-ceresin topical cream (Eucerin topical cream) Allergy/AdvReac Type Severity Reaction Status Date / Time ibuprofen Allergy Severe Facial Verified 04/05/25 16:44 swelling (angioedema) Family History Brother Diabetes Father , Age 72 stomach ulcers No problems noted. Mother , Age 71 pancreatitis No problems noted. Sister , hepatitis C No problems noted. Surgical History (Updated 04/18/25 @ 00:01 by Background Danixon) History of permanent cardiac pacemaker placement H/O aorto-femoral bypass (~2009) History of transurethral resection of prostate Presence of aortocoronary bypass graft (~03/2013) Social History household members: none Smoking Status: Former smoker Tobacco: How many years used: 30 how long ago did patient quit smokin years ROS Constitutional Constitutional: Reports weakness; Denies chills, fever(s) or weight gain ENT HEENT: Denies headache(s), nasal congestion or nasal discharge Cardiovascular Cardiovascular: Denies chest pain or palpitations Respiratory/Chest Respiratory/Chest: Denies cough, excessive phlegm production or shortness of breath with exertion Gastrointestinal Gastrointestinal: Denies abdominal pain, nausea or vomiting Genitourinary Genitourinary: Denies dysuria Musculoskeletal Musculoskeletal: Denies joint pain or joint swelling Integumentary Integumentary: Denies rash or wounds Neurologic Neurologic: Denies focal weakness, numbness or tingling Psychiatric Psychiatric: Denies anxiety, auditory hallucinations, depression, homicidal ideation or suicidal ideation Vital Signs Vital Signs Vital Signs: 04/17/25 18:17 Temperature 98.2 F Temperature Source Temporal Pulse Rate 104 H Respiratory Rate 20 H Blood Pressure 109/51 L Blood Pressure Mean 70 Blood Pressure Source Monitor Blood Pressure Position Sitting Blood Pressure Location Left Arm Pulse Ox 98 Oxygen Delivery Method Nasal Cannula Oxygen Flow Rate (L/min) 2 Weight Weight: 67.041 kg Body Mass Index (BMI) 23.8 Physical Exam Const alert General Appearance: cooperative HEENT normocephalic HEENT Narrative: Oxygen per nasal cannula. Eyes PERRL and EOMs intact bilaterally Neck supple, no JVD and no carotid bruits Resp normal respiratory effort, normal air movement and clear to auscultation bilaterally Auscultation: diminished lung sounds bilateral lower Cardio regular rate and regular rhythm GI normal to inspection, nondistended, normoactive bowel sounds, non-tender and non-distended Extremity normal capillary refill General Extremity: Negative for edema Skin no rashes or lesions noted General Skin Exam: no breakdown Psych affect normal Appearance: appropriate Results Lab / Micro Data 04/18/25 06:05 04/18/25 06:05 Assessment & Plan Assessment/Plan (1) Debility: (2) Acute respiratory failure with hypoxia: (3) Pneumonia: (4) Pneumothorax: (5) Pleural effusion: (6) Acute heart failure with preserved ejection fraction (HFpEF): (7) Tachy-brittany syndrome: (8) COPD (chronic obstructive pulmonary disease): QUALIFIERS: COPD type: emphysema Emphysema type: centrilobular Q ualified Code(s): J43.2 - Centrilobular emphysema (9) Atrial fibrillation: (10) Type 2 diabetes mellitus with hyperglycemia: (11) Hyperlipidemia: QUALIFIERS: Hyperlipidemia type: unspecified Qualified Code(s): E 78.5 - Hyperlipidemia, unspecified (12) BPH (benign prostatic hyperplasia): PLAN: Plan 80 year old male with below past medical history hospitalized for acute respiratory failure with hypoxia 2/2 pneumonia, pneumothorax, pleural effusion, acute HFpEF, complicated by COPD, admitted to TCU with debility, here for rehabilitation, strengthening, prior to discharge home alone. * Debility - PT/OT. * Pain - Tylenol 1000mg q6 prn pain (1-10). * Bowel - senna/colace 2 tablets bid, Magnesium citrate 300mL daily prn. * Adult immunization - Administer pneumonia vaccine, covid vaccine, flu vaccine as appropriate. * DVT prophylaxis - on Eliquis. * COPD - Duoneb 3ml neb q6 prn, albuterol 2 puffs q4 prn. * Atrial fibrillation - Metoprolol succinate 12.5mg bid, Eliquis 2.5mg bid. * PAOD - Plavix 75mg daily, Eliquis 2.5mg bid. * Chronic HFpEF - Metoprolol succinate 12.5mg bid, Furosemide 40mg daily. * Congestion - Mucinex 1200mg bid. * Diabetes Mellitus II - Tradjenta 5mg daily, Glargine 30 units qhs. * Nutrition - MVI 1 tablet daily. * Hyperlipidemia - Pravastsatin 20mg qhs. * BPH - Tamsulosin 0.4mg daily.
[2025-04-17 22:34] VITALS: PULSE 100; RESP 16; O2SAT 98
[2025-04-17 22:41] VITALS: BP 131/59; PULSE 99; O2SAT 99
[2025-04-17] MEDS: Insulin Glargine-YFGN 100 UNIT/ML Pen 30 UNIT SC (22:46)
[2025-04-17] MEDS: APIXABAN 2.5 MG TABLET (WCH) PO (22:49)
[2025-04-17 22:50] VITALS: BP 131/59; PULSE 99
[2025-04-17] MEDS: Senna/Docusate Sodium 1 Tablet 2 TABLET PO (22:50)
[2025-04-17] MEDS: Metoprolol(XL)Succ 25 MG Tablet 12.5 MG PO (22:50)
[2025-04-18] VITALS (7 sets, daily range): BP systolic 105–135; BP diastolic 46–68; PULSE 92–105; RESP 16–18; TEMP 36.4; O2SAT 96–98
--- OUTSIDE RECORDS SUMMARY | 2025-04-18 04:25 | XMS RPT_ITS | CCD ---
Author Organization [facility] Care Team Providers Care Technology Auditor Name Role Phone Dr. Tnoio Fajardo Primary Care Provider [phone] Dr. Tonio Fajardo Referring Provider Dr. Issa Looney Attending Provider [phone] Tonio Fajardo DO Primary Care Provider Dr. Tyrell Uriarte Attending Provider Dr. Tonio Fajardo Primary Care Provider [phone] Dr. Tonio Fajardo Referring Provider Brittny FAST FOOD CASHIER, FAST FOOD CASHIER-C Lorie Attending Provider [phone] Dr. Russ Zamora Attending Provider Renard FAST FOOD CASHIER, FAST FOOD CASHIER-C Bonny E Attending Provider Renard FAST FOOD CASHIER, FAST FOOD CASHIER-C Bonny E Referring Provider Renard FAST FOOD CASHIER, FAST FOOD CASHIER-C Bonny E Other Provider Dr. Srini Choi Attending Provider Dr. Srini Choi Referring Provider Dr. Srini Choi Other Provider Dr. Mateo Shahid Attending Provider Dr. Issa Looney Attending Provider Dr. Kenyon Flores Referring Provider Unava ilable Dr. Srini Choi Referring Provider [phone] Tevin Allen Attending Provider Dr. Tonio Fajardo Primary Care Provider Dr. Tonio Fajardo Referring Provider Dr. Tyrell Uriarte Attending Provider Dr. Issa Looney Attending Provider Dr. Kenyon Flores Referring Provider Unava mp Mart FAST FOOD CASHIER, FAST FOOD CASHIER-C Lorie Attending Provider Dr. Russ Zamora Attending Provider Renard FAST FOOD CASHIER, FAST FOOD CASHIER-C Bonny E Attending Provider [phone] Renard FAST FOOD CASHIER, FAST FOOD CASHIER-C Bonny E Referring Provider [phone] Renard FAST FOOD CASHIER, FAST FOOD CASHIER-C Bonny E Other Provider Dr. Srini Choi Attending Provider Dr. Srini Choi Referring Provider Dr. Srini Choi Other Provider Dr. Mateo Shahid Attending Provider Roof FAST FOOD CASHIER, FAST FOOD CASHIER-C kIer Stephens Attending Provider Tonio Fajardo DO A Primary Care Provider STEVEN RODRIGUEZ Referring Unavailable TONIO FAJARDO A Primary Care Unavailable TONIO FAJARDO A Primary Care Unavailable Dr. Tonio Fajardo Primary Care Provider [phone] Dr. Tonio Fajardo Referring Provider Dr. Tonio Fajardo Primary Care Provider [phone] Renard FAST FOOD CASHIER, FAST FOOD CASHIER-C Bonny E Attending Provider Renard FAST FOOD CASHIER, FAST FOOD CASHIER-C Bonny E Referring Provider Renard FAST FOOD CASHIER, FAST FOOD CASHIER-C Bonny E Other Provider Dr. Tonio Fajardo Referring Provider Dr. Russ Zamora Attending Provider Dr. Tonio Fajardo Primary Care Provider Dr. Srini Choi Attending Provider Dr. Srini Choi Referring Provider Renard FAST FOOD CASHIER, FAST FOOD CASHIER-C Bonny E Attending Provider Renard FAST FOOD CASHIER, FAST FOOD CASHIER-C Bonny E Referring Provider Renard FAST FOOD CASHIER, FAST FOOD CASHIER-C Bonny E Other Provider Dr. Tonio Fajardo Referring Provider Dr. Russ Zamora Attending Provider Dr. Tonio Fajardo Primary Care Provider Renard FAST FOOD CASHIER, FAST FOOD CASHIER-C Bonny E Attending Provider [phone] Renard FAST FOOD CASHIER, FAST FOOD CASHIER-C Bonny E Referring Provider [phone] Renard FAST FOOD CASHIER, FAST FOOD CASHIER-C Bonny E Other Provider Dr. Tonio Fajardo Referring Provider Dr. Russ Zamora Attending Provider Dr. Srini Choi Attending Provider Dr. Tyrell Uriarte Attending Provider Dr. Tonio Fajardo Primary Care Provider Renard FAST FOOD CASHIER, FAST FOOD CASHIER-C Bonny E Attending Provider Renard FAST FOOD CASHIER, FAST FOOD CASHIER-C Bonny E Referring Provider Renard FAST FOOD CASHIER, FAST FOOD CASHIER-C Bonny E Other Provider [phone] Dr. Tonio Fajardo Primary Care Provider Renard FAST FOOD CASHIER, FAST FOOD CASHIER-C Bonny E Attending Provider Renard FAST FOOD CASHIER, FAST FOOD CASHIER-C Bonny E Referring Provider [phone] Renard FAST FOOD CASHIER, FAST FOOD CASHIER-C Bonny E Other Provider [phone] Dr. Tonio Fajardo Primary Care Provider Renard FAST FOOD CASHIER, FAST FOOD CASHIER-C Bonny E Attending Provider [phone] Renard FAST FOOD CASHIER, FAST FOOD CASHIER-C Bonny E Referring Provider Renard FAST FOOD CASHIER, FAST FOOD CASHIER-C Bonny E Other Provider Dr. Tonio Fajardo Referring Provider Dr. Tonio Fajardo Primary Care Provider Renard FAST FOOD CASHIER, FAST FOOD CASHIER-C Bonny E Attending Provider Renard FAST FOOD CASHIER, FAST FOOD CASHIER-C Bonny E Referring Provider Renard FAST FOOD CASHIER, FAST FOOD CASHIER-C Bonny E Other Provider Dr. Tonio Fajardo Primary Care Provider Renard FAST FOOD CASHIER, FAST FOOD CASHIER-C Bonny E Attending Provider Renard FAST FOOD CASHIER, FAST FOOD CASHIER-C Bonny E Referring Provider [phone] Renard FAST FOOD CASHIER, FAST FOOD CASHIER-C Bonny E Other Provider Dr. Tonio Fajardo Primary Care Provider Renard FAST FOOD CASHIER, FAST FOOD CASHIER-C Bonny E Attending Provider Renard FAST FOOD CASHIER, FAST FOOD CASHIER-C Bonny E Referring Provider [phone] Renard FAST FOOD CASHIER, FAST FOOD CASHIER-C Bonny E Other Provider Dr. Tonio Fajardo Referring Provider Dr. Russ Zamora Attending Provider Dr. Tonio Fajardo Primary Care Provider Renard FAST FOOD CASHIER, FAST FOOD CASHIER-C Bonny E Attending Provider Renard FAST FOOD CASHIER, FAST FOOD CASHIER-C Bonny E Referring Provider Renard FAST FOOD CASHIER, FAST FOOD CASHIER-C Bonny E Other Provider Dr. Francisco Javier Lozada Attending Provider Dr. Joaquim Suárez Referring Provider Dr. Tonio Fajardo Primary Care Provider Renard FAST FOOD CASHIER, FAST FOOD CASHIER-C Bonny E Attending Provider Renard FAST FOOD CASHIER, FAST FOOD CASHIER-C Bonny E Referring Provider Renard FAST FOOD CASHIER, FAST FOOD CASHIER-C Bonny E Other Provider Dr. Tonio Fajardo Referring Provider Dr. Russ Zamora Attending Provider Dr. Francisco Javier Lozada Attending Provider Dr. Joaquim Suárez Referring Provider Dr. Tonio Fajardo Primary Care Provider [phone] Brittny FAST FOOD CASHIER, FAST FOOD CASHIER-C Lorie Attending Provider RICKIE Alejandra Attending Provider [...] Provider Brittny CAMPUZANO-C, Lorie Attending Provider Brittny FAST FOOD CASHIER-C, Lorie Referring Provider Brittny CAMPUZANO-C, Lorie Other Provider Dr. Tyrell Uriarte DO Attending Provider Scotty , Dr. Elizalde Attending Provider Sera STRATTON, Dr. Solano Attending Provider Sera STRATTON, Dr. Solano Referring Provider Scotty MCGEE, Dr. Elizalde Primary Care Provider [place] , Dr. Milligan Other Provider Scotty MCGEE, [...] Shadi STRATTON, Dr. Graham Other Provider Michael FAST FOOD CASHIER-C, Iker Stephens Other Provider Corina DAMIAN, Leslie Cruz Other Provider Ariane DAMIAN, Tadeo Other Provider Grzegorz STRATTON, Dr. Leos Other [...] Provider Shadi STRATTON, Dr. Graham Other Provider [facility] FAST FOOD CASHIER-C, Iker Angelo Other Provider Leslie Alejandra Other Provider Tadeo Fink Other Provider Grzegorz STRATTON, Dr. Leos Other Provider Peter STRATTON, Dr. Amador Attending Provider Dr. Willian Glaser MD Attending Provider Dr. Alex Matias MD Attending Provider Florencio STRATTON, Dr. Johnson Emergency Provider Dr. Tonio Fajardo DO Referring Provider Leslie Alejandra Attending Provider Dr. Tonio Fajardo DO Attending Provider Leslie Alejandra Referring Provider Carmelina Parra Attending Provider Unavailable Carmelina Parra Referring Provider Unavailable Dr. Ld Hayes DO Emergency Provider Lindsey DO, Dr. Petersen Attending Provider Unav simona Looney MD, Dr. Parsons Attending Provider Manjit STRATTON, Dr. Mays Other Provider Dr. Nicola Roman MD Attending Provider Unavaila ble Abel STRATTON, Dr. Petersen Other Provider Unavailable Dr. Santos Hsu MD Attending Provider [phone] Carol Sousa Attending Provider Unavailable Dr. Valdez Olivo MD, Chi Admit Provider Dr. Valdez Olivo MD, Chi Attending Provider Dr. Daniel Brownlee DO Emergency Provider HALLIE STRATTON, DR DAVID Ovalle Admitting Unavailable SUSAN STRATTON, GLORIA Attending Unavailable DR TONIO FAJARDO DO Primary Care Unavailab samm CARMEN MD, ABBI Strauss Consulting Unavailable MITCH STRATTON, MICHELLE Craig Consulting Unavailabl e Leslie Alejandra Referring Unavail able Scotty, Tonio Primary Care Unavailable Leslie Alejandra Attending Unavail able Scotty, Tonio Primary Care Unavailable Brittny FAST FOOD CASHIER, Lorie Attending Unavailable Brittny FAST FOOD CASHIER, Lorie Referring Unavailable Scotty, Tonio Primary Care Unavailable Scotty, Tonio Referring Unavailable Scotty, Tonio Attending Unavailable Russ Zamora Attending Unavailable Scotty, Tonio Primary Care Unavailable Scotty, Tonio Referring Unavailable Nicola Lindsey Admitting Unavailable Nicola Lindsey Consulting Unavailable Grzegorz, Deric Attending Unavailable Scotty, Tonio Primary Care Unavailable Amro, Ahmed Consulting Unavailable Jabri, Ahmad Consulting Unavailable Mostafa Nicolette Consulting Unavailable Peter, Marjorie Consulting Unavailable Martin Vivas Consulting Unavailable Jose Lai Consulting Unavailable Aayush, Issa Consulting Unavailable Chago Miller Consulting Unavailable Willian Glaser Consulting Unavailable Orly Mitchell Consulting UnavailReinaldo Lima Consulting Unavailable Santos Hsu Consulting Unavailable Michael CAMPUZANO, Iker Stephens Consulting Unavailable Leslie Alejandra Consulting Unavail able Tadeo Thakkar Consulting Unavailable Joaquim Suárez Attending Unavailable Joaquim Suárez Referring Unavailable Scotty, Tonio Primary Care Unavailable Joaquim Suárez Referring Unavailable Scotty, Tonio Primary Care Unavailable Joaquim Suárez Attending Unavailable Nicola Lindsey Admitting Unavailable ManjitDavon eaton Consulting Unavailable Scotty, Tonio Primary Care Unavailable Nicola Roman Attending Unavailable Nicola Lindsey Consulting Unavailable Grzegorz, Deric Consulting Unavailable Aayush, [place] Consulting Unavailable Scotty, Tonio Primary Care Unavailable Scotty, Tonio Referring Unavailable Carol Sousa Attending Unavailable Leslie Alejandra Referring Unavail able Aayush, Issa Attending Unavailable Scotty, Tonio Primary Care Unavailable Luis Greend Attending Unavailable Scotty, Tonio Primary Care Unavailable Russ Zamora Referring Unavailable Russ Zamora Attending Unavailable Scotty, Tonio Primary Care Unavailable Scotty, Tonio Primary Care Unavailable Scotty, Tonio Attending Unavailable Scotty, Tonio Primary Care Unavailable Daniel Brownlee Attending Unavailable Scotty, Tonio Primary Care Unavailable Alex Matias Attending Unavailable Leslie Alejandra Attending Unavail able Leslie Alejandra Referring Unavail able Scotty, Tonio Primary Care Unavailable Carmelina Parra Referring Unavailable Scotty, Tonio Primary Care Unavailable Carmelina Parra Attending Unavailable Russ Zamora Referring Unavailable Scotty, Tonio Primary Care Unavailable Srini Choi Consulting Unavailable Russ Zamora Attending Unavailable Nicola Lindsey Consulting Unavailable Grzegorz, Deric Attending Unavailable Nicola Lindsey Admitting Unavailable Scotty, Tonio Primary Care Unavailable Amro, Ahmed Consulting Unavailable Jabri, Ahmad Consulting Unavailable Mostafa Nicloette Consulting Unavailable Peter, Marjorie Consulting Unavailable Martin Vivas Consulting Unavailable Jose Lai Consulting Unavailable Aayush, Issa Consulting Unavailable Chago Miller Consulting Unavailable Willian Glaser Consulting Unavailable Orly Mitchell Consulting UnavailReinaldo Lima Consulting Unavailable Guy Hsuatore Consulting Unavailable Iker Rodriguez NP Consulting Unavailable Leslie Alejandra Consulting Unavail able Tadeo Thakkar Consulting Unavailable Grzegorz, Deric Consulting Unavailable Hesham Greenhad Attending Unavailable Scotty, Tonio Primary Care Unavailable Geovani, Valdez Chi Attending Unavailable Geovani, Valdez Chi Admitting Unavailable Scotty, Tonio Primary Care Unavailable Brittny FAST FOOD CASHIER, Lorie Referring Unavailable Tyrell Uriarte Attending Unavailable Brittny CAMPUZANO, Lorie Consulting Unavailable Russ Zamora Referring Unavailable Russ Zamora Attending Unavailable Scotty, Tonio Primary Care Unavailable Nicola Lindsey Admitting Unavailable Scotty, Tonio Primary Care Unavailable Manjit, Jayaprakas Consulting Unavailable Nicola Roman Attending Unavailable Nicola Lindsey Consulting Unavailable Grzegorz, Deric Consulting Unavailable Aayush, Issa Consulting Unavailable Nicola Roman Consulting Unavailable Santos Hsu Attending Unavailable Willian Glaser Attending Unavailable Leslie Alejandra Attending Unavail able Scotty, Tonio Primary Care Unavailable Scotty, Tonio Referring Unavailable Carol Sousa Attending Unavailable Scotty, Tonio Primary Care Unavailable Scotty, Tonio Referring Unavailable Aayush, Issa Attending Unavailable Scotty, Tonio Primary Care Unavailable AayushLynnl Attending Unavailable Scotty, Tonio Primary Care Unavailable Scotty, Tonio Primary Care Unavailable Leslie Alejandra Attending Unavail able Scotty, Tonio Referring Unavailable Scotty, Tonio Primary Care Unavailable Brittny FAST FOOD CASHIER, Lorie Attending Unavailable Tonio Fajardo Referring Unavailable Russ Zamora Attending Unavailable Tonio Fajardo Referring Unavailable Tonio Fajardo Primary Care Unavailable Nicola Lindsey Attending Unavailable Nicola Lindsey Attending Unavailable Deric Lantigua Attending Unavailable Issa Looney Attending Unavailable Tonio Fajardo Primary Care Unavailable Geovani, Valdez Chi Referring Unavailable Geovani Valdez Chi Attending Unavailable Geovani, Valdez Chi Admitting Unavailable DR TONIO FAJARDO DO Primary Care Physician [phone] Allergies Allergy Classification Reported Allergen(s) Allergy Type Date of Onset Reaction(s) Facility (20 sources) Ibuprofen; 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: [IBUPROFEN] Drug Allergy 2 Shortness of Breath [facility] Work Phone: (1 source) Ibuprofen Drug Allergy 5 [facility] Repository Medications Current Medications Medication Drug Class(es) Dates Sig (Normalized) Sig (Original) Albuterol / Ipratropium (20 sources) Anticholinergic, beta2-Adrenergic Agonist Start: 04-17-2025 DuoNeb Dose = 3 mL, Inhalation, QIDRT, 0 Refill(s) Start Date: 04/17/25 Status: Ordered Medication Dispense Status: Completed Total Allowed Fills: 1 Fills Dispensed: 0 Start: 06-18-2013 End: 08-25-2013 Start: 06-18-2013 End: [...] 18, 2013 12:00am August 25, 2013 10:01am albuterol MDI (90 mcg/inh) CFC free inhalation aerosol (1 source) Start: 04-13-2025 take 2 puff(s) by inhalation every four hours as needed for wheezing albuterol MDI (90 mcg/inh) CFC free inhalation aerosol 2 puff(s), Inhalation, q4h, PRN as needed for wheezing, # 8.5 gram(s), 0 Refill(s) Start Date: 04/13/25 Status: Ordered Medication Dispense Status: Completed Quantity: 8.5 Unit: g Total Allowed Fills: 1 Fills Dispensed: 0 Anoro Ellipta 62.5 mcg-25 mcg/inh inhalation powder (1 source) Start: 04-13-2025 take 1 dose by inhalation once daily Anoro Ellipta 62.5 mcg-25 mcg/inh inhalation powder Dose = 1 puff(s), Inhalation, qDay, 0 Refill(s) Start Date: 04/13/25 Status: Ordered Medication Dispense Status: Completed Total Allowed Fills: 1 Fills Dispensed: 0 aspirin 81 mg chewable tablet (20 sources) Platelet Aggregation Inhibitor, Nonsteroidal Anti-inflammatory Drug Start: 04-17-2025 aspirin 81 mg oral tablet, chewable Dose : 81 mg = 1 tab(s), Oral, qDayM, 0 Refill(s) Start Date: 04/17/25 Status: Ordered Medication Dispense Status: Completed Total Allowed Fills: 1 Fills Dispensed: 0 Start: 08-22-2017 End: 07-26-2023 Comment on above: Take by mouth. cefdinir 300 mg oral capsule (6 sources) Cephalosporin Antibacterial Start: 025 cholecalciferol 0.125 mg oral capsule (20 sources) Vitamin D Start: 020 take 125 ug by mouth twice daily [...] 2019 12:36pm take 1 capsule by mo ut once daily cholecalciferol, vitamin D3, (VITAMIN D-3) 10 mcg (400 unit) cap Take 400 Units by mouth once daily. Active Comment on above: Take 400 Units by mo uth once daily. clopidogrel 75 mg oral tablet (20 sources) P2Y12 Platelet Inhibitor Start: 04-05-2025 clopidogrel 75 mg oral tablet Dose : 75 mg = 1 tab(s), Oral, Daily, 0 Refill(s) Start Date: 04/13/25 Status: Ordered Medication Dispense Status: Completed Total Allowed Fills: 1 Fills Dispensed: 0 Start: 06-28-2020 End: 03-17-2025 Start: 10-24-2018 End: 11-19-2019 colestipol hydrochloride 1000 mg oral tablet (13 sources) Bile Acid Sequestrant Start: 06-28-2020 colestipol (COLESTID) 1 gram tablet 03/27/2022 Active cranberry preparation 500 mg oral tablet (20 sources) Non-Standardized Food Allergenic Extract, Non-Standardized Plant Allergenic Extract Start: 04-13-2025 take 1 tablet by mouth once daily cranberry oral tablet 500 mg, Oral, Daily, 0 Refill(s) Start Date: 04/13/25 Status: Ordered Medication Dispense Status: Completed Total Allowed Fills: 1 Fills Dispensed: 0 Start: 07-25-2023 Start: 07-25-2023 take 1 capsule by [facility] once daily at mealtime Cranberry 500 mg capsule Active 500 mg PO DAILY July 25, 2023 1:00am supplement administer with meals Start: 07-25-2023 take 1 capsule by [facility] once daily at mealtime [...] meals docusate sodium 100 mg oral capsule (20 sources) Start: 07-25-2023 Colace 100 mg oral capsule Dose : 100 mg = 1 cap(s), Oral, qDay, PRN as needed for constipation, 0 Refill(s) Start Date: 04/13/25 Status: Ordered Medication Dispense Status: Completed Total Allowed Fills: 1 Fills Dispensed: 0 Start: 04-14-2022 take 1 capsule by [facility] once daily as [...] on above: Take by mouth. Fish,Bora,Flax Oils-Om3,6,9no1 ([place] 3-6-9) 1,200 mg Capsule (8 sources) Start: 11-02-2021 take 1 capsule by mouth twice daily Fish,Bora,Flax Oils-Om3,6,9no1 ([place] 3-6-9) 1,200 mg Capsule Active 1 CAP PO TWICE A DAY November 02, 2021 1:31pm Start: 11-02-2021 take 1 capsule by [facility] twice daily Fish,Bora,Flax Oils-Om3,6,9no1 ([place] 3-6-9) 1,200 mg Capsule Active 1 CAP PO TWICE A DAY November 02, 2021 12:00am furosemide 40 mg oral tablet (7 sources) Loop Diuretic Start: 04-13-2025 Lasix 40 mg or al tablet Dose : 40 mg = 1 tab(s), Oral, qDay, 0 Refill(s) Start Date: 04/13/25 Status: Ordered Medication Dispense Status: Completed Total Allowed Fills: 1 Fills Dispensed: 0 Start: 04-08-2025 glyBURIDE 2.5 mg oral tablet (13 sources) Sulfonylurea Start: 03-21-2017 glyBURIDE (ANTHONY BETA) 2.5 mg tablet Take 2.5 mg by mouth. 03/21/2017 Active Start: 03-21-2017 take 1.25 mg by mout h twice daily Glyburide Active 1.25 MG PO TWICE A DAY March 21, 2017 12:00am Comment on above: Take 2.5 mg by mouth . guaiFENesin 1200 mg oral tablet (20 sources) Start: 04-13-2025 take 1 dose by mouth every twelve hours guaiFENesin Dose : 1,200 mg =, Oral, q12h, 0 Refill(s) Start Date: 04/13/25 Status: Ordered Medication Dispense Status: Completed Total Allowed Fills: 1 Fills Dispensed: 0 Start: 04-08-2025 Start: 10-23-2024 End: 03-09-2025 take 1 tablet by mouth every twelve hours Guaifenesin 1,200 mg tablet extended release 12hr Active 1200 mg PO Q12H 14 7 6 March 09, 2025 12:38pm Insulin Glargine (20 sources) Insulin Analog Start: 04-13-2025 inject 1 dose by subcutaneous injection once daily at bedtime insulin glargine Dose : 30 unit(s) =, Subcutaneous, qHS, 0 Refill(s) Start Date: 04/13/25 Status: Ordered Medication Dispense Status: Completed Total Allowed Fills: 1 Fills Dispensed: 0 Start: 04-05-2025 Start: 03-26-2022 LANTUS SOLOSTA R [...] mucosal solution 60 mL; Per 180 mL Multi-Braden (1 source) Start: 04-13-2025 take 1 tablet by mouth once daily Multi-Braden 1 tab, Oral, Daily, 0 Refill(s) Start Date: 04/13/25 Status: Ordered Medication Dispense Status: Completed Total Allowed Fills: 1 Fills Dispensed: 0 Multivitamin (Daily Multi-Vitamin) tablet (20 sources) Start: [...] (20 sources) HMG-CoA Reductase Inhibitor Start: 01-11-2022 take 1 dose by mouth once daily pravastatin Dose : 20 mg =, Oral, qDay, 0 Refill(s) Start Date: 04/13/25 Status: Ordered Medication Dispense Status: Completed Total Allowed Fills: 1 Fills Dispensed: 0 Start: 12-03-2013 End: 06-27-2019 predniSONE 20 mg oral tablet (6 sources) Start: 04-08-2025 SITagliptin 50 mg oral tablet (20 sources) Dipeptidyl Peptidase 4 Inhibitor Start: 11-02-2021 Januvia 50 mg oral tablet Dose : 50 mg = 1 tab(s), Oral, qDay, # 30 tab(s), 0 Refill(s) Start Date: 04/13/25 Status: Ordered Medication Dispense Status: Completed Quantity: 30.0 Unit: tab(s) Total Allowed Fills: 1 Fills Dispensed: 0 Start: 02-17-2014 End: 04-08-2014 tamsulosin hydrochloride 0.4 mg oral capsule (20 sources) alpha-Adrenergic Josselyn Start: 03-09-2025 tamsu losin 0.4 mg oral capsule Dose : 0.4 mg = 1 cap(s), Oral, qDay, 0 Refill(s) Start Date: 04/13/25 Status: Ordered Medication Dispense Status: Completed Total Allowed Fills: 1 Fills Dispensed: 0 Start: 03-21-2017 End: 03-06-2018 Start: 03-21-2017 End: 03-06-2018 Tamsulosin 0.4 MG capsule Di scontinued March 21, 2017 12:00am March 06, 2018 3:46pm Start: 08-25-2013 End: 11-26-2013 7 actuat umeclidinium 0.0625 mg/actuat / vilanterol 0.025 mg/actuat dry powder inhaler (20 sources) Anticholinergic, beta2-Adrenergic Agonist Start: 10-23-2024 Umeclidinium-Vilanterol [...] copd (20 sources) Start: 04-09-2025 Start: 03-09-2025 End: 04-12-2025 Start: 03-09-2025 Start: 10-23-2024 Start: 10-23-2024 End: 03-09-2025 Start: 06-28-2020 Start: 11-19-2019 Start: 06-27-2019 End: 11-19-2019 Start: 03-21-2017 End: 11-19-2019 Start: 12-03-2013 End: 03-21-2017 Completed/Discontinued Medications Medication Drug Class(es) Dates Sig (Normalized) Sig (Original) acetaminophen 325 mg oral tablet (20 sources) Start: 02-07-2014 End: 11-19-2019 [id number] 200 actuat albuterol 0.09 mg/actuat metered dose [...] October 31, 2023 12:00am administer with spacer amoxicillin 500 mg oral tablet (11 sources) Penicillin-class Antibacterial Start: 03-15-2025 End: 04-05-2025 amoxicillin 875 mg / clavulanate 125 mg oral tablet (20 sources) Penicillin-class Antibacterial Start: 01-22-2023 End: 06-08-2023 Amoxicillin-Pot Clavulanate 875-125 mg tablet Discontinued 1 {tbl} PO Q12H 14 January 22, 2023 12:00am June 08, 2023 11:58am Start: 01-22-2023 End: 06-08-2023 take 1 tablet by mouth every twelve hours Amoxicillin-Pot Clavulanate Discontinued 1 TABLET PO Q12H 28 January 22, 2023 12:00am June 08, 2023 11:58am Start: 01-12-2023 End: 06-08-2023 Start: 01-12-2023 End: 01-22-2023 Amoxicillin-Pot Clavulanate 875-125 mg tablet Discontinued 1 {tbl} PO TWICE A DAY 14 January 12, 2023 12:00am January 22, 2023 3:27pm Start: 01-12-2023 End: 01-22-2023 take 1 tablet by mouth twice daily Amoxicillin-Pot Clavulanate Discontinued 1 TABLET PO TWICE A DAY 28 January 12, 2023 12:00am January 22, 2023 [...] tablet (20 sources) Factor Xa Inhibitor Start: 04-13-2025 Eliquis 5 mg oral tablet Dose : 2.5 mg =, Oral, BID, 0 Refill(s), 71.6 Start Date: 04/13/25 Status: Ordered Medication Dispense Status: Completed Total Allowed Fills: 1 Fills Dispensed: 0 Start: 07-26-2023 End: 03-09-2025 Start: 07-26-2023 End: 03-09-2025 take 1 tablet by mouth twice daily Apixaban (Eliquis) 5 mg tablet Discontinued 5 mg PO TWICE A DAY 180 August 04, 2024 8:56am March 09, 2025 12:35pm atrial fibrillation ascorbic acid 500 mg oral ca psule (20 sources) Vitamin C Start: 08-22-2017 End: 08-23-2017 calcium ascorbate 500 mg ora l tablet [...] Comment on above: Take 1 capsule by [facility] three times daily for 10 days. [...] hydrochloride 120 mg extended release oral capsule (12 sources) Calcium Channel Josselyn Start: 03-09-2025 End: 04-08-2025 diphenhydrAMINE hydrochloride 25 mg oral capsule (20 sources) Histamine-1 Receptor Antagonist Start: 12-03-2013 End: 03-21-2017 doxycycline hyclate 100 mg oral capsule (16 sources) Tetracycline-class Drug Start: 04-01-2024 End: 09-25-2024 dutasteride 0.5 mg oral capsule (20 sources) 5-alpha Reductase Inhibitor Start: 08-25-2013 End: 11-26-2013 Eucerin topical cream (1 source) Start: 04-17-2025 Eucerin topica l cream Apply 1 katia, Topical, BID, 0 Refill(s), Cream, 71.6 Start Date: 04/17/25 Status: Ordered Medication Dispense Status: Completed Total Allowed Fills: 1 Fills Dispensed: 0 Fish Oil-Fat Acid Comb.8-Hb137 ([place] 3-6-9 1,200 Mg Softgel) 1,200 MG capsule (20 sources) Start: 12-03-2013 End: 03-21-2017 Fish Oil-Fat Acid Comb.8-Hb137 ([place] 3-6-9 1,200 Mg Softgel) 1,200 MG capsule Discontinued 1000 MG PO TWICE A DAY December 03, 2013 11:07am March 21, 2017 2:47pm Start: 12-03-2013 End: 03-21-2017 Fish Oil-Fat Acid Comb.8-Hb1 37 ([place] 3-6-9 1,200 Mg Softgel) 1,200 MG capsule Discontinued 1000 mg PO TWICE A DAY December 03, 2013 12:00am March 21, 2017 2:47pm Start: 12-03-2013 End: 03-21-2017 Fish Oil-Fat Acid Comb.8-Hb1 37 ([place] 3-6-9 1,200 Mg Softgel) 1,200 MG capsule Discontinued 1000 MG PO TWICE A DAY December 02, 2013 11:00pm March 21, 2017 1:47pm Start: 12-03-2013 End: 03-21-2017 Fish Oil-Fat Acid Comb.8-Hb1 37 ([place] 3-6-9 1,200 Mg Softgel) 1,200 MG capsule [...] 21, 2017 12:00am November 19, 2019 3:48pm Zauvhloaarb-Ywgcrthvm-Vphuhd er (16 sources) Start: 02-15-2024 End: 09-25-2024 Start: 02-15-2024 End: 09-25-2024 Xzeggeygcqw-Yzuboovgd-Aarusg er (Trelegy Ellipta) 200-62.5-25 mcg blister with device Discontinued 1 NMA INHALATION DAILY 3 February 15, 2024 12:00am September 25, 2024 2:02pm Start: 02-15-2024 End: 09-25-2024 Dhmzxjcrzaf-Fkjpcauyt-Mztscy er (Trelegy Ellipta) 200-62.5-25 mcg blister with [...] August 25, 2013 10:01am lactobacillus acidophilus 10 [id number] unt oral capsule (20 sources) Start: 05-24-2022 [...] Active Comment on above: Take by mouth. 24 hr metoprolol succinate 25 mg extended release oral tablet (20 sources) beta-Adrenergic Josselyn Start: 04-13-2025 End: 04-17-2025 metoprolol succinate 25 mg oral TABLET extended release Start: 04/17/25 8:00:00 AM EDT, Dose = 25 mg, = 1 tab(s), Oral, Hold if SBP (mmHg) Start Date: 04/17/25 Stop Date: 04/17/25 Status: Completed Medication Dispense Status: Completed Total Allowed Fills: 1 Fills Dispensed: 0 Start: 04-01-2025 End: 04-03-2025 Start: 07-25-2023 End: [...] End: 11-19-2019 Start: 06-18-2013 End: 11-19-2019 Multivitamin preparation (20 sources) Start: 06-27-2019 End: [...] 11-24-2020 Chronic Acute and unspecified renal failure (17 sources) Acute renal failure syndrome; 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: [Acute [...] lung and L adrenal gland.Comes for follow up.CT shows stable changes in lungs and L [...] Onset: 03-27-2025 08-25-2020 Chronic Chronic kidney disease (6 sources) Chronic kidney disease; 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: [Chronic kidney disease, stage 3 unspecified] Onset: 04-13-2025 Chronic obstructive pulmonary disease and bronchiectasis (20 sources) Chronic obstructive lung disease; 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: [Chronic obstructive pulmonary disease, unspecified] Onset: 10-30-2024 12-13-2022 Chronic Chronic ulcer of skin (20 sources) 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 without evidence of necrosis; 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: [Ulcer of right foot with bone involvement without evidence of necrosis] Chronic Conduction disorders (20 sources) Complete atrioventricular block; 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: [Atrioventricular block, complete] Onset: 04-10-2025 04-08-2025 Chronic Congestive heart failure; nonhypertensive (20 sources) Acute exacerbation of chronic congestive heart failure; 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: [Heart failure, unspecified] Onset: 04-03-2025 03-04-2025 Chronic Coronary atherosclerosis and other heart disease (20 sources) Coronary atherosclerosis; 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: [Atherosclerotic heart disease of [place] coronary artery without angina pectoris] Onset: 04-10-2025 06-28-2020 Chronic Comment on above: CABG x 3 APPIAH-LAD, S VG-PDA, SVG-D1 03/2013 Coronary atherosclerosis and other heart disease (20 sources) Aortocoronary bypass graft present; 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: [Presence of aortocoronary bypass graft] Onset: 08-20-2012 Episodic Comment on above: CABG x 3 APPIAH-LAD, S VG-PDA, SVG-D1 03/2013 Deficiency and other anemia (20 sources) Anemia; 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: [Anemia, unspecified] Onset: 04-13-2025 11-19-2019 Episodic Deficiency and other anemia (1 source) Anemia, unspecified; 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: [Anemia, unspecified] Onset: 04-13-2025 Episodic Deficiency and other anemia (1 source) Chronic anemia 04-13-2025 Episodic Diabetes mellitus with complications (20 sources) Type 2 diabetes mellitus; 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: [Type 2 diabetes mellitus with diabetic polyneuropathy] Onset: 10-31-2024 Chronic Diabetes mellitus without complication (20 sources) Diabetes mellitus; 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: [Type 2 diabetes mellitus without complications] Onset: 04-03-2025 03-06-2025 Chronic Disorders of lipid metabolism (20 sources) Hyperlipidemia; 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: [Hyperlipidemia, unspecified] Onset: 04-13-2025 Chronic Esophageal disorders (20 sources) Gastroesophageal reflux disease; 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: [Gastro-esophageal reflux disease without esophagitis] 11-19-2019 Chronic Esophageal disorders (20 sources) Radiation esophagitis; 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] 06-28-2022 Episodic Essential hypertension (20 sources) Hypertensive disorder; 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: [Essential (primary) hypertension] Onset: 04-03-2025 Chronic Fever of unknown origin (20 sources) Fever; 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: [Fever, unspecified] 12-31-2022 Episodic Fluid and electrolyte disorders (20 sources) Hyperkalemia; 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: [Hyperkalemia] Onset: 04-15-2025 03-04-2025 Episodic Genitourinary symptoms and ill-defined conditions (20 sources) Scalding pain on urination ; 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: [Dysuria] Episodic Heart valve disorders (20 sources) Tricuspid valve regurgitation; 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: [Rheumatic tricuspid insufficiency] Onset: 04-03-2025 03-06-2025 Chronic Hyperplasia of prostate (11 sources) Benign prostatic hyperplasia; 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: [Benign prostatic hyperplasia without lower urinary tract symptoms] Onset: 04-13-2025 04-10-2025 Chronic Hypertension with complications and secondary hypertension (3 sources) Hypertensive heart and chronic kidney disease with heart failure and stage 1 through stage 4 chronic kidney disease, or unspecified chronic kidney disease; 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: [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] Onset: 04-13-2025 Chronic Immunizations and screening for infectious disease [...] sources) Long-term current use of anticoagulant; 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: [jail (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 of anticoagulants] 03-04-2025 Episodic Other aftercare (11 sources) Long-term current use of drug therapy; 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: [bear keeper (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 of 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/antipl atelets] 03-15-2025 Episodic Other aftercare (1 source) jail (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 of anticoagulants; 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: [jail (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 of anticoagulants] Onset: 04-15-2025 Episodic Other circulatory disease (1 source) Other specified peripheral vascular diseases; 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: [Other specified peripheral vascular diseases] Onset: 07-07-2024 Chronic Other diseases of veins and lymphatics (20 sources) Peripheral venous insufficiency; 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: [Venous insufficiency (chronic) (peripheral)] 04-28-2020 Episodic Other diseases of veins and lymphatics (20 sources) Venous insufficiency (chronic) (peripheral); 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: [Venous (peripheral) insufficiency, unspecified] Episodic Other hematologic conditions (17 sources) Increased serum protein level; 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: [Abnormality [...] in chest] Episodic Other lower respiratory disease (10 sources) Shortness of breath; 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: [Shortness of breath] Onset: 04-17-2025 10-09-2022 Episodic Other lower respiratory disease (20 sources) Dyspnea on exertion; Translations: [Other forms of dyspnea] 07-25-2023 Episodic Other lower respiratory disease (17 sources) Nodule of lung; Translations: [Solitary pulmonary [...] [Hypoxemia] 10-23-2024 Episodic Other lower respiratory disease (16 sources) History of chronic obstructive airway disease; Translations: [Personal history of other diseases of the respiratory system] 03-04-2025 Episodic Other lower respiratory disease (14 sources) Respiratory insufficiency; Translations: [Other abnormalities of breathing] 04-05-2025 Episodic Other lower respiratory disease (1 source) Other abnormalities of breathing; Translations: [Other abnormalities of breathing] Onset: 04-15-2025 Episodic Other nervous system disorders (1 source) Polyneuropathy, unspecified; Translations: [Polyneuropathy, unspecified] Onset: 04-13-2025 Chronic Other nervous system disorders (1 source) Polyneuropathy; Translations: [Polyneuropathy, unspecified] Onset: 04-13-2025 Chronic Other nervous system disorders (1 source) Peripheral nerve disease 04-13-2025 Chronic Other nutritional; endocrine; and metabolic disorders (20 sources) H/O: diabetes mellitus; Translations: [Personal history of other endocrine, nutritional and metabolic disease] 12-31-2022 Episodic Other nutritional; endocrine; and metabolic disorders (20 sources) Body mass index overweight; Translations: [Overweight] 03-04-2025 Episodic Other nutritional; endocrine; and metabolic disorders (1 source) Overweight; Translations: [Overweight] Onset: 04-15-2025 Episodic Other screening for suspected conditions (not mental disorders or infectious disease) (20 sources) Raised cardiac enzyme or marker; Translations: [Other specified abnormal findings of blood chemistry] Onset: 04-13-2025 03-04-2025 Episodic Other upper respiratory disease (11 sources) Anterior epistaxis; Translations: [Epistaxis] 03-15-2025 Episodic Other upper respiratory disease (1 source) Epistaxis; Translations: [Epistaxis] Onset: 03-19-2025 Episodic Peripheral and visceral atherosclerosis (20 sources) Peripheral vascular disease; Translations: [Peripheral vascular disease, unspecified] Onset: 04-03-2025 Chronic Pleurisy; pneumothorax; pulmonary collapse (20 sources) Pleural effusion; Translations: [Pleural effusion, not elsewhere classified] Onset: 04-03-2025 03-04-2025 Episodic Pneumonia (except that caused by tuberculosis or sexually transmitted disease) (8 sources) Pneumonia; Translations: [Pneumonia, unspecified organism] Onset: 04-13-2025 04-13-2025 Episodic Residual codes; unclassified (20 sources) Edema of lower extremity; Translations: [Localized edema] 05-22-2020 Episodic Residual codes; unclassified (20 sources) Localized edema; Translations: [Localized edema] 12-21-2021 Episodic Residual codes; unclassified (20 sources) Localized edema; Translations: [Edema] Episodic Respiratory failure; insufficiency; arrest (adult) (15 sources) Chronic hypoxemic respiratory failure; Translations: [Chronic respiratory failure with hypoxia] Onset: 04-13-2025 03-15-2025 Chronic Respiratory failure; insufficiency; arrest (adult) (8 sources) Acute respiratory failure; Translations: [Acute respiratory failure with hypoxia] 04-10-2025 Episodic Septicemia (except in labor) (2 sources) Sepsis, unspecified organism; Translations: [Sepsis] Onset: 04-13-2025 Episodic Substance-related disorders (20 sources) Tobacco dependence [...] THE OFFICE TO SCHEDULE YOUR APPOINTMENT. Unclassified (3 sources) Other persistent atrial fibrillation; Translations: [Other persistent atrial fibrillation] Onset: 04-03-2025 Unclassified (1 source) Chronic atrial fibrillation, unspecified; Translations: [Chronic atrial fibrillation, unspecified] Onset: 04-15-2025 Unclassified (1 source) Peripheral arterial disease 04-13-2025 Urinary tract infections (20 sources) Urinary tract [...] Range Facility Basic Metabolic Profile (BMP )on 05-09-2025 BUN Normal 12-06 [facility] Comment on above: Result Comment: Canc elled via OM: Order cancelled - Patient discharged Performed By: #### L 100.0100, L500.2500 ####[facility] [address] [place], [address] BUN/CRE Normal - [facility] Comment on above: Result Comment: Canc elled via OM: Order cancelled - Patient discharged Performed By: #### L 100.0100, L500.2500 ####[facility] [address], [address] Calcium Normal 7.6-11.0 [facility] Comment on above: Result Comment: Canc elled via OM: Order cancelled - Patient discharged Performed By: #### L 100.0100, L500.2500 ####[facility] [address] [place], [address] CL Normal 98-108 [facility] Comment on above: Result Comment: Canc elled via OM: Order cancelled - Patient discharged Performed By: #### L 100.0100, L500.2500 ####[facility] [address] [place], [address] CO2 Normal 21.0-32.0 [facility] Comment on above: Result Comment: Canc elled via OM: Order cancelled - Patient discharged Performed By: #### L 100.0100, L500.2500 ####[facility] [address] [place], [address] CREAT,SERUM Normal 0.70-1.20 [facility] Comment on above: Result Comment: Canc elled via OM: Order cancelled - Patient discharged Performed By: #### L 100.0100, L500.2500 ####[facility] [address] [place], [address] eGFR Normal >60 [facility] Comment on above: Result Comment: Canc elled via OM: Order cancelled - Patient discharged Performed By: #### L 100.0100, L500.2500 ####[facility] [address] [place], [address] GAP Normal 5-15 [facility] Comment on above: Result Comment: Canc elled via OM: Order cancelled - Patient discharged Performed By: #### L 100.0100, L500.2500 ####[facility] [address] [place], [address] GLU Normal 70-99 [facility] Comment on above: Result Comment: Canc elled via OM: Order cancelled - Patient discharged Performed By: #### L 100.0100, L500.2500 ####[facility] [address] [place], [address] Potassium Normal 3.3-5.1 [facility] Comment on above: Result Comment: Canc elled via OM: Order cancelled - Patient discharged Performed By: #### L 100.0100, L500.2500 ####[facility] [address] [place], [address] Basic Metabolic Profile (BMP) Normal 133-145 [facility] Comment on above: Result Comment: Canc elled via OM: Order cancelled - Patient discharged Performed By: #### L 100.0100, L500.2500 ####[facility] [address] [place], [address] CBC W/Diff, Automatedon 09-2 0-2024 Absolute Neut Normal 2.0-7.7 [facility] Comment on above: Result Comment: Canc elled via OM: Order cancelled - Patient discharged Performed By: #### L 100.0100, L500.2500 ####[facility] [address] [place], [address] HCT Normal 40-54 [facility] Comment on above: Result Comment: Canc elled via OM: Order cancelled - Patient discharged Performed By: #### L 100.0100, L500.2500 ####[facility] [address] [place], [address] HGB Normal 13.0-16.5 [facility] Comment on above: Result Comment: Canc elled via OM: Order cancelled - Patient discharged Performed By: #### L 100.0100, L500.2500 ####[facility] [address] [place], [address] MCH Normal 27.0-32.0 [facility] Comment on above: Result Comment: Canc elled via OM: Order cancelled - Patient discharged Performed By: #### L 100.0100, L500.2500 ####[facility] [address] [place], [address] MCHC Normal 32-36 [facility] Comment on above: Result Comment: Canc elled via OM: Order cancelled - Patient discharged Performed By: #### L 100.0100, L500.2500 ####[facility] [address] [place], [address] MCV Normal 80-94 [facility] Comment on above: Result Comment: Canc elled via OM: Order cancelled - Patient discharged Performed By: #### L 100.0100, L500.2500 ####[facility] [address] [place], [address] NEUT% Normal 47-70 [facility] Comment on above: Result Comment: Canc elled via OM: Order cancelled - Patient discharged Performed By: #### L 100.0100, L500.2500 ####[facility] [address] [place], [address] PLT Normal 150-450 [facility] Comment on above: Result Comment: Canc elled via OM: Order cancelled - Patient discharged Performed By: #### L 100.0100, L500.2500 ####[facility] [address] [place], [address] RBC Normal 4.6-6.2 [facility] Comment on above: Result Comment: Canc elled via OM: Order cancelled - Patient discharged Performed By: #### L 100.0100, L500.2500 ####[facility] [address] [place], [address] RDW CV Normal 11.6-14.6 [facility] Comment on above: Result Comment: Canc elled via OM: Order cancelled - Patient discharged Performed By: #### L 100.0100, L500.2500 ####[facility] [address] [place], [address] RDW SD Normal 35.1-43.9 [facility] Comment on above: Result Comment: Canc elled via OM: Order cancelled - Patient discharged Performed By: #### L 100.0100, L500.2500 ####[facility] [address] [place], [address] WBC Normal 4.4-11.0 [facility] Comment on above: Result Comment: Canc elled via OM: Order cancelled - Patient discharged Performed By: #### L 100.0100, L500.2500 ####[facility] [address] [place], [address] Basic Metabolic Profile (BMP )on 05-02-2025 BUN Normal 4-19 [facility] Comment on above: Result Comment: Canc elled via OM: Order cancelled - Patient discharged Performed By: #### L 100.0100, L500.2500 ####[facility] [address] [place], [address] BUN/CRE Normal 10-20 [facility] Comment on above: Result Comment: Canc elled via OM: Order cancelled - Patient discharged Performed By: #### L 100.0100, L500.2500 ####[facility] [address] [place], [address] Calcium Normal 7.6-11.0 [facility] Comment on above: Result Comment: Canc elled via OM: Order cancelled - Patient discharged Performed By: #### L 100.0100, L500.2500 ####[facility] [address] [place], [address] CL Normal 98-108 [facility] Comment on above: Result Comment: Canc elled via OM: Order cancelled - Patient discharged Performed By: #### L 100.0100, L500.2500 ####[facility] [address] [place], [address] CO2 Normal 21.0-32.0 [facility] Comment on above: Result Comment: Canc elled via OM: Order cancelled - Patient discharged Performed By: #### L 100.0100, L500.2500 ####[facility] [address] [place], [address] CREAT,SERUM Normal 0.70-1.20 [facility] Comment on above: Result Comment: Canc elled via OM: Order cancelled - Patient discharged Performed By: #### L 100.0100, L500.2500 ####[facility] [address] [place], [address] eGFR Normal >60 [facility] Comment on above: Result Comment: Canc elled via OM: Order cancelled - Patient discharged Performed By: #### L 100.0100, L500.2500 ####[facility] [address] [place], [address] GAP Normal 5-15 [facility] Comment on above: Result Comment: Canc elled via OM: Order cancelled - Patient discharged Performed By: #### L 100.0100, L500.2500 ####[facility] [address] [place], [address] GLU Normal 70-99 [facility] Comment on above: Result Comment: Canc elled via OM: Order cancelled - Patient discharged Performed By: #### L 100.0100, L500.2500 ####[facility] [address] [place], [address] Potassium Normal 3.3-5.1 [facility] Comment on above: Result Comment: Canc elled via OM: Order cancelled - Patient discharged Performed By: #### L 100.0100, L500.2500 ####[facility] [address] [place], [address] Basic Metabolic Profile (BMP) Normal 133-145 [facility] Comment on above: Result Comment: Canc elled via OM: Order cancelled - Patient discharged Performed By: #### L 100.0100, L500.2500 ####[facility] [address] [place], [address] CBC W/Diff, Automatedon 09-1 Absolute Neut Normal 2.0-7.7 [facility] Comment on above: Result Comment: Canc elled via OM: Order cancelled - Patient discharged Performed By: #### L 100.0100, L500.2500 ####[facility] [address] [place], [address] HCT Normal 40-54 [facility] Comment on above: Result Comment: Canc elled via OM: Order cancelled - Patient discharged Performed By: #### L 100.0100, L500.2500 ####[facility] [address] [place], [address] HGB Normal 13.0-16.5 [facility] Comment on above: Result Comment: Canc elled via OM: Order cancelled - Patient discharged Performed By: #### L 100.0100, L500.2500 ####[facility] [address] [place], [address] MCH Normal 27.0-32.0 [facility] Comment on above: Result Comment: Canc elled via OM: Order cancelled - Patient discharged Performed By: #### L 100.0100, L500.2500 ####[facility] [address] [place], [address] MCHC Normal 32-36 [facility] Comment on above: Result Comment: Canc elled via OM: Order cancelled - Patient discharged Performed By: #### L 100.0100, L500.2500 ####[facility] [address] [place], [address] MCV Normal 80-94 [facility] Comment on above: Result Comment: Canc elled via OM: Order cancelled - Patient discharged Performed By: #### L 100.0100, L500.2500 ####[facility] [address] [place], [address] NEUT% Normal 47-70 [facility] Comment on above: Result Comment: Canc elled via OM: Order cancelled - Patient discharged Performed By: #### L 100.0100, L500.2500 ####[facility] [address] [place], [address] PLT Normal 150-450 [facility] Comment on above: Result Comment: Canc elled via OM: Order cancelled - Patient discharged Performed By: #### L 100.0100, L500.2500 ####[facility] [address] [place], [address] RBC Normal 4.6-6.2 [facility] Comment on above: Result Comment: Canc elled via OM: Order cancelled - Patient discharged Performed By: #### L 100.0100, L500.2500 ####[facility] [address] [place], [address] RDW CV Normal 11.6-14.6 [facility] Comment on above: Result Comment: Canc elled via OM: Order cancelled - Patient discharged Performed By: #### L 100.0100, L500.2500 ####[facility] [address] [place], [address] RDW SD Normal 35.1-43.9 [facility] Comment on above: Result Comment: Canc elled via OM: Order cancelled - Patient discharged Performed By: #### L 100.0100, L500.2500 ####[facility] [address] [place], [address] WBC Normal 4.4-11.0 [facility] Comment on above: Result Comment: Canc elled via OM: Order cancelled - Patient discharged Performed By: #### L 100.0100, L500.2500 ####[facility] [address] [place], [address] Basic Metabolic Profile (BMP )on 04-25-2025 BUN Normal 4-19 [facility] Comment on above: Result Comment: Canc elled via OM: Order cancelled - Patient discharged Performed By: #### L 500.2500, L100.0100 ####[facility] [address] [place], [address] BUN/CRE Normal 10-20 [facility] Comment on above: Result Comment: Canc elled via OM: Order cancelled - Patient discharged Performed By: #### L 500.2500, L100.0100 ####[facility] [address] [place], [address] Calcium Normal 7.6-11.0 [facility] Comment on above: Result Comment: Canc elled via OM: Order cancelled - Patient discharged Performed By: #### L 500.2500, L100.0100 ####[facility] [address] [place], [address] CL Normal 98-108 [facility] Comment on above: Result Comment: Canc elled via OM: Order cancelled - Patient discharged Performed By: #### L 500.2500, L100.0100 ####[facility] [address] [place], [address] CO2 Normal 21.0-32.0 [facility] Comment on above: Result Comment: Canc elled via OM: Order cancelled - Patient discharged Performed By: #### L 500.2500, L100.0100 ####[facility] [address] [place], [address] CREAT,SERUM Normal 0.70-1.20 [facility] Comment on above: Result Comment: Canc elled via OM: Order cancelled - Patient discharged Performed By: #### L 500.2500, L100.0100 ####[facility] [address] [place], [address] eGFR Normal >60 [facility] Comment on above: Result Comment: Canc elled via OM: Order cancelled - Patient discharged Performed By: #### L 500.2500, L100.0100 ####[facility] [address] [place], [address] GAP Normal 5-15 [facility] Comment on above: Result Comment: Canc elled via OM: Order cancelled - Patient discharged Performed By: #### L 500.2500, L100.0100 ####[facility] [address] [place], [address] GLU Normal 70-99 [facility] Comment on above: Result Comment: Canc elled via OM: Order cancelled - Patient discharged Performed By: #### L 500.2500, L100.0100 ####[facility] [address] [place], [address] Potassium Normal 3.3-5.1 [facility] Comment on above: Result Comment: Canc elled via OM: Order cancelled - Patient discharged Performed By: #### L 500.2500, L100.0100 ####[facility] [address] [place], [address] Basic Metabolic Profile (BMP) Normal 133-145 [facility] Comment on above: Result Comment: Canc elled via OM: Order cancelled - Patient discharged Performed By: #### L 500.2500, L100.0100 ####[facility] [address] [place], [address] CBC W/Diff, Automatedon 09-0 -2024 Absolute Neut Normal 2.0-7.7 [facility] Comment on above: Result Comment: Canc elled via OM: Order cancelled - Patient discharged Performed By: #### L 500.2500, L100.0100 ####[facility] [address] [place], [address] HCT Normal 40-54 [facility] Comment on above: Result Comment: Canc elled via OM: Order cancelled - Patient discharged Performed By: #### L 500.2500, L100.0100 ####[facility] [address] [place], [address] HGB Normal 13.0-16.5 [facility] Comment on above: Result Comment: Canc elled via OM: Order cancelled - Patient discharged Performed By: #### L 500.2500, L100.0100 ####[facility] [address] [place], [address] MCH Normal 27.0-32.0 [facility] Comment on above: Result Comment: Canc elled via OM: Order cancelled - Patient discharged Performed By: #### L 500.2500, L100.0100 ####[facility] [address] [place], [address] MCHC Normal 32-36 [facility] Comment on above: Result Comment: Canc elled via OM: Order cancelled - Patient discharged Performed By: #### L 500.2500, L100.0100 ####[facility] [address] [place], [address] MCV Normal 80-94 [facility] Comment on above: Result Comment: Canc elled via OM: Order cancelled - Patient discharged Performed By: #### L 500.2500, L100.0100 ####[facility] [address] [place], [address] NEUT% Normal 47-70 [facility] Comment on above: Result Comment: Canc elled via OM: Order cancelled - Patient discharged Performed By: #### L 500.2500, L100.0100 ####[facility] [address] [place], [address] PLT Normal 150-450 [facility] Comment on above: Result Comment: Canc elled via OM: Order cancelled - Patient discharged Performed By: #### L 500.2500, L100.0100 ####[facility] [address] [place], [address] RBC Normal 4.6-6.2 [facility] Comment on above: Result Comment: Canc elled via OM: Order cancelled - Patient discharged Performed By: #### L 500.2500, L100.0100 ####[facility] [address] [place], [address] RDW CV Normal 11.6-14.6 [facility] Comment on above: Result Comment: Canc elled via OM: Order cancelled - Patient discharged Performed By: #### L 500.2500, L100.0100 ####[facility] [address] [place], [address] RDW SD Normal 35.1-43.9 [facility] Comment on above: Result Comment: Canc elled via OM: Order cancelled - Patient discharged Performed By: #### L 500.2500, L100.0100 ####[facility] [address] [place], [address] WBC Normal 4.4-11.0 [facility] Comment on above: Result Comment: Canc elled via OM: Order cancelled - Patient discharged Performed By: #### L 500.2500, L100.0100 ####[facility] [address] [place], [address] Basic Metabolic Profile (BMP )on 04-18-2025 BUN Normal 4-19 [facility] Comment on above: Result Comment: Canc elled via OM: Order cancelled - Patient discharged Performed By: #### L 100.0100, L500.2500 ####[facility] [address] [place], [address] BUN/CRE Normal 10-20 [facility] Comment on above: Result Comment: Canc elled via OM: Order cancelled - Patient discharged Performed By: #### L 100.0100, L500.2500 ####[facility] [address] [place], [address] Calcium Normal 7.6-11.0 [facility] Comment on above: Result Comment: Canc elled via OM: Order cancelled - Patient discharged Performed By: #### L 100.0100, L500.2500 ####[facility] [address] [place], [address] CL Normal 98-108 [facility] Comment on above: Result Comment: Canc elled via OM: Order cancelled - Patient discharged Performed By: #### L 100.0100, L500.2500 ####[facility] [address] [place], [address] CO2 Normal 21.0-32.0 [facility] Comment on above: Result Comment: Canc elled via OM: Order cancelled - Patient discharged Performed By: #### L 100.0100, L500.2500 ####[facility] [address] [place], [address] CREAT,SERUM Normal 0.70-1.20 [facility] Comment on above: Result Comment: Canc elled via OM: Order cancelled - Patient discharged Performed By: #### L 100.0100, L500.2500 ####[facility] [address] [place], [address] eGFR Normal >60 [facility] Comment on above: Result Comment: Canc elled via OM: Order cancelled - Patient discharged Performed By: #### L 100.0100, L500.2500 ####[facility] [address] [place], [address] GAP Normal 5-15 [facility] Comment on above: Result Comment: Canc elled via OM: Order cancelled - Patient discharged Performed By: #### L 100.0100, L500.2500 ####[facility] [address] [place], [address] GLU Normal 70-99 [facility] Comment on above: Result Comment: Canc elled via OM: Order cancelled - Patient discharged Performed By: #### L 100.0100, L500.2500 ####[facility] [address] [place], [address] Potassium Normal 3.3-5.1 [facility] Comment on above: Result Comment: Canc elled via OM: Order cancelled - Patient discharged Performed By: #### L 100.0100, L500.2500 ####[facility] [address] [place], [address] Basic Metabolic Profile (BMP) Normal 133-145 [facility] Comment on above: Result Comment: Canc elled via OM: Order cancelled - Patient discharged Performed By: #### L 100.0100, L500.2500 ####[facility] [address] [place], [address] CBC W/Diff, Automatedon 08-3 0-2024 Absolute Neut Normal 2.0-7.7 [facility] Comment on above: Result Comment: Canc elled via OM: Order cancelled - Patient discharged Performed By: #### L 100.0100, L500.2500 ####[facility] [address] [place], [address] HCT Normal 40-54 [facility] Comment on above: Result Comment: Canc elled via OM: Order cancelled - Patient discharged Performed By: #### L 100.0100, L500.2500 ####[facility] [address] [place], [address] HGB Normal 13.0-16.5 [facility] Comment on above: Result Comment: Canc elled via OM: Order cancelled - Patient discharged Performed By: #### L 100.0100, L500.2500 ####[facility] [address] [place], [address] MCH Normal 27.0-32.0 [facility] Comment on above: Result Comment: Canc elled via OM: Order cancelled - Patient discharged Performed By: #### L 100.0100, L500.2500 ####[facility] [address] [place], [address] MCHC Normal 32-36 [facility] Comment on above: Result Comment: Canc elled via OM: Order cancelled - Patient discharged Performed By: #### L 100.0100, L500.2500 ####[facility] [address] [place], [address] MCV Normal 80-94 [facility] Comment on above: Result Comment: Canc elled via OM: Order cancelled - Patient discharged Performed By: #### L 100.0100, L500.2500 ####[facility] [address] [place], [address] NEUT% Normal 47-70 [facility] Comment on above: Result Comment: Canc elled via OM: Order cancelled - Patient discharged Performed By: #### L 100.0100, L500.2500 ####[facility] [address] [place], [address] PLT Normal 150-450 [facility] Comment on above: Result Comment: Canc elled via OM: Order cancelled - Patient discharged Performed By: #### L 100.0100, L500.2500 ####[facility] [address] [place], [address] RBC Normal 4.6-6.2 [facility] Comment on above: Result Comment: Canc elled via OM: Order cancelled - Patient discharged Performed By: #### L 100.0100, L500.2500 ####[facility] [address] [place], [address] RDW CV Normal 11.6-14.6 [facility] Comment on above: Result Comment: Canc elled via OM: Order cancelled - Patient discharged Performed By: #### L 100.0100, L500.2500 ####[facility] [address] [place], [address] RDW SD Normal 35.1-43.9 [facility] Comment on above: Result Comment: Canc elled via OM: Order cancelled - Patient discharged Performed By: #### L 100.0100, L500.2500 ####[facility] [address] [place], [address] WBC Normal 4.4-11.0 [facility] Comment on above: Result Comment: Canc elled via OM: Order cancelled - Patient discharged Performed By: #### L 100.0100, L500.2500 ####[facility] [address] [place], [address] Bedside Glucoseon 04-17-2025 FINGERSTICK GLU 191 mg/dL High 74-106 [facility] Comment on above: Result Comment: KODY STRONG OF PATIENT CARE PER NURSING PROTOCOL Performed By: #### L 501.080 ####[facility] [address] [place], [address] LABORATORYOrdered By: SYSTEM SYSTEM on 04-17-2025 aPTT Coag (Bld) [Time] 73.1 s High 25.0 - 35.0 seconds [facility] SS Comment on above: Interpretive Data: F or Heparin anticoagulation therapy, the recommended therapeutic range is: 54-77 seconds (APTT Correlation with Anti-Xa therapeutic range of 0.3-0.7 units/ml). PLEASE REFERENCE THE PHARMACY PROTOCOL FOR DOSING. Albumin BCP dye [Mass/Vol] 2.7 G/dL Low 3.2 - 4.8 G/dL AH ADM SS Albumin/Globulin [Mass ratio] 0.8 {ratio} Low 0.9 - 1.6 ratio AH ADM SS ALP [Catalytic activity/Vol] 65 U/L Normal 38 - 126 U/L AH ADM SS ALT No additional P-5'-P [Catalytic activity/Vol] 21 U/L Normal 12 - 55 U/L AH ADM SS aPTT Coag (Bld) [Time] 68.5 s High 25.0 - 35.0 seconds [facility] SS Comment on above: Interpretive Data: F or Heparin anticoagulation therapy, the recommended therapeutic range is: 54-77 seconds (APTT Correlation with Anti-Xa therapeutic range of 0.3-0.7 units/ml). PLEASE REFERENCE THE PHARMACY PROTOCOL FOR DOSING. AST [Catalytic activity/Vol] 16 U/L Normal 8 - 34 U/L ADM SS Basophils (Bld) [#/Vol] 0.0 103/mcL Normal 0.0 - 0.3 10^3/mcL Workflow SS Basophils/100 WBC (Bld) 0.6 % Normal 0.0 - 2.5 % Workflow SS Bilirubin [Mass/Vol] 0.40 mg/dL Normal 0.20 - 1.20 mg/dL ADM SS Comment on above: Interpretive Data: U se of this assay is not recommended for patients undergoing treatment with eltrombopag due to the potential for falsely elevated results. Calcium [Mass/Vol] 9.4 mg/dL Normal 8.7 - 10. 4 mg/dL ADM SS Chloride [Moles/Vol] 88 mmol/L Low 98 - 11 0 mEq/L ADM SS Creatinine [Mass/Vol] 1.62 mg/dL High 0.60 - 1.40 mg/dL ADM SS Comment on above: Interpretive Data: T esting performed on ncyclo analyzer using enzymatic creatinine methodology. Eosinophils (Bld) [#/Vol] 0.4 103/mcL Normal 0.0 - 0.7 10^3/mcL Workflow SS Eosinophils/100 WBC (Bld) 4.2 % Normal 0.0 - 6.0 % Workflow SS Erythrocyte distribution width (RBC) [Ratio] 18.3 % High 11.5 - 15.5 % Workflow SS Estimated Glomerular Filtration Rate 43 ml/min/1.73sqm Invalid Interpretation Code Chemistry S Comment on above: Interpretive Data: Stages of Chronic Kidney Disease (CKD) Stage [...] race factor to calculate the eGFR results. Free T4 [Mass/Vol] 0.88 ng/dL Low 0.89 - 1.76 ng/dL ADM SS Comment on above: Interpretive Data: * *Note - New Reference Range in effect 20 Globulin 3.5 G/dL Normal 2.5 - 4.2 G/dL ADM SS Glucose [Mass/Vol] 174 mg/dL High 82 - 115 mg/dL AH ADM SS Hematocrit (Bld) [Volume fraction] 27.4 % Low 40.0 - 52.0 % AH Workflow SS Hemoglobin (Bld) [Mass/Vol] 9.0 G/dL Low 13.0 - 17.5 G/dL AH Workflow SS Lymphocytes (Bld) [#/Vol] 0.5 103/mcL Low 0.9 - 4.3 10^3/mcL AH Workflow SS Lymphocytes/100 WBC (Bld) 5.5 % Low 20.0 - 40.0 % AH Workflow SS Magnesium [Mass/Vol] 1.8 mg/dL Normal 1.6 - 2 .4 mg/dL ADM SS MCH (RBC) [Entitic mass] 27.3 pg Normal 27. 0 - 33.0 pg AH Workflow SS MCHC 32.7 G/dL Normal 32.0 - 36.0 G/dL AH Workflow SS MCV (RBC) [Entitic vol] 83.4 fL Normal 81.0 - 100.0 fL AH Workflow SS Monocytes (Bld) [#/Vol] 0.8 103/mcL Normal 0.1 - 1.4 10^3/mcL AH Workflow SS Monocytes/100 WBC (Bld) 9.6 % Normal 2.0 - 13.0 % AH Workflow SS Neutrophils (Bld) [#/Vol] 7.1 103/mcL Normal 2.3 - 8.1 10^3/mcL AH Workflow SS Neutrophils/100 WBC (Bld) 80.1 % High 50.0 - 75.0 % AH Workflow SS Platelet mean volume (Bld) [Entitic vol] 8.4 fL Normal 6.4 - 10.5 fL Workflow SS Platelets (Bld) [#/Vol] 163 103/mcL Normal 150 - 450 10^3/mcL Workflow SS Potassium [Moles/Vol] 3.7 mmol/L Normal 3.5 - 5.0 mEq/L ADM SS Protein [Mass/Vol] 6.2 G/dL Normal 5.7 - 8.2 G/dL ADM SS RBC (Bld) [#/Vol] 3.29 106/mcL Low 4.50 - 6.00 10^6/mcL Workflow SS Sodium [Moles/Vol] 137 mmol/L Normal 136 - 145 mEq/L ADM SS TSH Qn 4.806 mIU/mL High 0.550 - 4.780 mIU/mL ADM SS Urea nitrogen [Mass/Vol] 41.0 mg/dL High 8.0 - 22.0 mg/dL ADM SS Urea nitrogen/Creatinine [Mass ratio] 25.3 ratio High 10.0 - 22.0 ratio ADM SS WBC (Bld) [#/Vol] 8.8 103/mcL Normal 4.5 - 10.8 10^3/mcL Workflow SS LABORATORYOrdered By: [place] on 04-17-2025 Blood Glucose Testing Reason Routine (04/17/25 11:08 AM) [facility] Work Phone: Glucose [Mass/Vol] 276 mg/dL High 82 - 115 mg/dL [facility] Work Phone: Blood Glucose Testing Reason Routine (04/17/25 7:57 AM) [facility] Work Phone: Glucose [Mass/Vol] 171 mg/dL High 82 - 115 mg/dL [facility] Work Phone: LABORATORYOrdered By: Lisa Mandel on 04-17-2025 CO2 [Moles/Vol] mEq/L Invalid Interpretation Code 22 - 32 mEq/L Chemistry S Electrolyte Balance See Comment Invalid Interpretation Code 4.0 - 15.0 Chemistry S Comment on above: Result Comment: Unab le to calculate this test result accurately. Results used to calculate this test are outside the reportable range. .Auto Diffon 04-16-2025 Basophil, Absolute 0.0 10 3/mcL Normal 0.0-0.[address] [facility] Comment on above: Performed By: #### C MP, ADIFF, CBC, TROPHS, ANEU, LAC, MYCO, MG, GFR, PRO, PBNP #### [address] [address] Basophils/100 WBC (Bld) 0.1 % Normal 0.0-2.5 [facility] Comment on above: Performed By: #### C MP, ADIFF, CBC, TROPHS, ANEU, LAC, MYCO, MG, GFR, PRO, PBNP #### [address] [address] Eosinophil, Absolute 0.5 10 3/mcL Normal 0.0-0.7 [facility] Comment on above: Performed By: #### C MP, ADIFF, CBC, TROPHS, ANEU, LAC, MYCO, MG, GFR, PRO, PBNP #### [address] [address] Eosinophils/100 WBC (Bld) 5.3 % Normal 0.0-6.0 [facility] Comment on above: Performed By: #### C MP, ADIFF, CBC, TROPHS, ANEU, LAC, MYCO, MG, GFR, PRO, PBNP #### [address] [address] Lymphocyte, Absolute 0.4 10 3/mcL Low 0.9-4.3 [facility] Comment on above: Performed By: #### C MP, ADIFF, CBC, TROPHS, ANEU, LAC, MYCO, MG, GFR, PRO, PBNP #### [address] [address] Lymphocytes/100 WBC (Bld) 4.8 % Low 20.0-40.0 [facility] Comment on above: Performed By: #### C MP, ADIFF, CBC, TROPHS, ANEU, LAC, MYCO, MG, GFR, PRO, PBNP #### [address] [address] Monocyte, Absolute 0.7 10 3/mcL Normal 0.1-1.[address] [facility] Comment on above: Performed By: #### C MP, ADIFF, CBC, TROPHS, ANEU, LAC, MYCO, MG, GFR, PRO, PBNP #### [address] [address] Monocytes/100 WBC (Bld) 8.3 % Normal 2.0-13.0 [facility] Comment on above: Performed By: #### C MP, ADIFF, CBC, TROPHS, ANEU, LAC, MYCO, MG, GFR, PRO, PBNP #### [address] [address] Neutrophils/100 WBC (Bld) 81.5 % High 50.0-75.0 [facility] Comment on above: Performed By: #### C MP, ADIFF, CBC, TROPHS, ANEU, LAC, MYCO, MG, GFR, PRO, PBNP #### [address] [address] .GFRon 04-16-2025 Estimated Glomerular Filtration Rate 48 ml/min/1.73sqm Normal [facility] Comment on above: Result Comment: Stages of Chronic Kidney Disease [...] calculate the eGFR results. Performed By: #### C MP, ADIFF, CBC, TROPHS, ANEU, LAC, MYCO, MG, GFR, PRO, PBNP #### [address] [address] .NEUABSon 04-16-2025 Neutrophil, Absolute 7.3 10 3/mcL Normal 2.3-8.1 [facility] Comment on above: Performed By: #### C MP, ADIFF, CBC, TROPHS, ANEU, LAC, MYCO, MG, GFR, PRO, PBNP #### [place] [address] APTTon 04-16-2025 aPTT Coag (Bld) [Time] 63.1 s High 25.0-35.0 [facility] Comment on above: Result Comment: For Heparin anticoagulation therapy, the recommended therapeutic range is: 54-77 seconds (APTT Correlation with Anti-Xa therapeutic range of 0.3-0.7 units/ml). PLEASE REFERENCE THE PHARMACY PROTOCOL FOR DOSING. Performed By: #### A PTT #### [place] [address] aPTT Coag (Bld) [Time] 55.6 s High 25.0-35.0 [facility] Comment on above: Result Comment: For Heparin anticoagulation therapy, the recommended therapeutic range is: 54-77 seconds (APTT Correlation with Anti-Xa therapeutic range of 0.3-0.7 units/ml). PLEASE REFERENCE THE PHARMACY PROTOCOL FOR DOSING. Performed By: #### C MP, ADIFF, CBC, TROPHS, ANEU, LAC, MYCO, MG, GFR, PRO, PBNP #### [place] [address] CBCon 04-16-2025 Erythrocyte distribution width (RBC) [Ratio] 18.8 % High 11.5-15.5 [facility] Comment on above: Performed By: #### C MP, ADIFF, CBC, TROPHS, ANEU, LAC, MYCO, MG, GFR, PRO, PBNP #### [place] [address] Hematocrit (Bld) [Volume fraction] 27.9 % Low 40.0-52.0 [facility] Comment on above: Performed By: #### C MP, ADIFF, CBC, TROPHS, ANEU, LAC, MYCO, MG, GFR, PRO, PBNP #### [place] [address] Hgb 9.1 G/dL Low 13.0-17.5 [facility] Comment on above: Performed By: #### C MP, ADIFF, CBC, TROPHS, ANEU, LAC, MYCO, MG, GFR, PRO, PBNP #### [place] [address] MCH (RBC) [Entitic mass] 27.8 pg Normal 27.0-33.0 [facility] Comment on above: Performed By: #### C MP, ADIFF, CBC, TROPHS, ANEU, LAC, MYCO, MG, GFR, PRO, PBNP #### [place] [address] MCHC 32.8 G/dL Normal 32.0-36.0 [facility] Comment on above: Performed By: #### C MP, ADIFF, CBC, TROPHS, ANEU, LAC, MYCO, MG, GFR, PRO, PBNP #### [place] [address] MCV (RBC) [Entitic vol] 84.7 fL Normal 81.0-100.0 [facility] Comment on above: Performed By: #### C MP, ADIFF, CBC, TROPHS, ANEU, LAC, MYCO, MG, GFR, PRO, PBNP #### [place] [address] Platelet 158 10 3/mcL Normal 150-450 [facility] Comment on above: Performed By: #### C MP, ADIFF, CBC, TROPHS, ANEU, LAC, MYCO, MG, GFR, PRO, PBNP #### [place] [address] Platelet mean volume (Bld) [Entitic vol] 8.7 fL Normal 6.4-10.5 [facility] Comment on above: Performed By: #### C MP, ADIFF, CBC, TROPHS, ANEU, LAC, MYCO, MG, GFR, PRO, PBNP #### [place] [address] RBC 3.29 10 6/mcL Low 4.50-6.00 [facility] Comment on above: Performed By: #### C MP, ADIFF, CBC, TROPHS, ANEU, LAC, MYCO, MG, GFR, PRO, PBNP #### [place] [address] WBC 9.0 10 3/mcL Normal 4.5-10.8 [facility] Comment on above: Performed By: #### C MP, ADIFF, CBC, TROPHS, ANEU, LAC, MYCO, MG, GFR, PRO, PBNP #### [address] [address] CMPon 04-16-2025 Albumin Level 2.6 G/dL Low 3.2-4.8 [facility] Comment on above: Performed By: #### C MP, ADIFF, CBC, TROPHS, ANEU, LAC, MYCO, MG, GFR, PRO, PBNP #### [place] [id number] Albumin/Globulin [Mass ratio] 0.8 {ratio} Low 0.9-1.6 [facility] Comment on above: Performed By: #### C MP, ADIFF, CBC, TROPHS, ANEU, LAC, MYCO, MG, GFR, PRO, PBNP #### [place] [address] ALP [Catalytic activity/Vol] 59 U/L Normal 38-126 [facility] Comment on above: Performed By: #### C MP, ADIFF, CBC, TROPHS, ANEU, LAC, MYCO, MG, GFR, PRO, PBNP #### [address] [address] ALT [Catalytic activity/Vol] 23 U/L Normal 12-55 [facility] Comment on above: Performed By: #### C MP, ADIFF, CBC, TROPHS, ANEU, LAC, MYCO, MG, GFR, PRO, PBNP #### [address] [address] AST [Catalytic activity/Vol] 17 U/L Normal 8-34 [facility] Comment on above: Performed By: #### C MP, ADIFF, CBC, TROPHS, ANEU, LAC, MYCO, MG, GFR, PRO, PBNP #### [place] [id number] Bili Total 0.50 mg/dL Normal 0.20-1.20 [facility] Comment on above: Result Comment: Use of this assay is not recommended for patients undergoing treatment with eltrombopag due to the potential for falsely elevated results. Performed By: #### C MP, ADIFF, CBC, TROPHS, ANEU, LAC, MYCO, MG, GFR, PRO, PBNP #### [address] [address] BUN/Creatinine Ratio 22.6 ratio High 10.0-22.[address] [facility] Comment on above: Performed By: #### C MP, ADIFF, CBC, TROPHS, ANEU, LAC, MYCO, MG, GFR, PRO, PBNP #### [place] [id number] Calcium [Mass/Vol] 9.2 mg/dL Normal 8.7-10.4 [facility] Comment on above: Performed By: #### C MP, ADIFF, CBC, TROPHS, ANEU, LAC, MYCO, MG, GFR, PRO, PBNP #### [place] [id number] Chloride [Moles/Vol] 91 mmol/L Low 98-[address] [facility] Comment on above: Performed By: #### C MP, ADIFF, CBC, TROPHS, ANEU, LAC, MYCO, MG, GFR, PRO, PBNP #### [address] [address] CO2 [Moles/Vol] 38 mmol/L High 22-32 [facility] Comment on above: Performed By: #### C MP, ADIFF, CBC, TROPHS, ANEU, LAC, MYCO, MG, GFR, PRO, PBNP #### [address] [address] Creatinine [Mass/Vol] 1.46 mg/dL High 0.60-1.40 [facility] Comment on above: Result Comment: Test ing performed on ncyclo analyzer using enzymatic creatinine methodology. Performed By: #### C MP, ADIFF, CBC, TROPHS, ANEU, LAC, MYCO, MG, GFR, PRO, PBNP #### [place] [id number] Electrolyte Balance 9.0 mEq/L Normal 4.0-15.[address] [facility] Comment on above: Performed By: #### C MP, ADIFF, CBC, TROPHS, ANEU, LAC, MYCO, MG, GFR, PRO, PBNP #### [address] [address] Globulin 3.2 G/dL Normal 2.5-4.2 [facility] Comment on above: Performed By: #### C MP, ADIFF, CBC, TROPHS, ANEU, LAC, MYCO, MG, GFR, PRO, PBNP #### [address] [address] Glucose [Mass/Vol] 144 mg/dL High 82-115 [facility] Comment on above: Performed By: #### C MP, ADIFF, CBC, TROPHS, ANEU, LAC, MYCO, MG, GFR, PRO, PBNP #### [address] [address] Potassium [Moles/Vol] 3.7 mmol/L Normal 3.5-5.0 [facility] Comment on above: Performed By: #### C MP, ADIFF, CBC, TROPHS, ANEU, LAC, MYCO, MG, GFR, PRO, PBNP #### [address] [address] Sodium [Moles/Vol] 138 mmol/L Normal 136-145 [facility] Comment on above: Performed By: #### C MP, ADIFF, CBC, TROPHS, ANEU, LAC, MYCO, MG, GFR, PRO, PBNP #### [address] [address] Total Protein 5.8 G/dL Normal 5.7-8.2 [facility] Comment on above: Performed By: #### C MP, ADIFF, CBC, TROPHS, ANEU, LAC, MYCO, MG, GFR, PRO, PBNP #### [address] [address] Urea nitrogen [Mass/Vol] 33.0 mg/dL High 8.0-22.0 [facility] Comment on above: Performed By: #### C MP, ADIFF, CBC, TROPHS, ANEU, LAC, MYCO, MG, GFR, PRO, PBNP #### [facility] [address] [place] [address] LABORATORYOrdered By: Mónica Brown on 04-16-2025 Blood Glucose Testing Reason Routine (04/16/25 9:15 PM) [facility] Work Phone: Glucose [Mass/Vol] 207 mg/dL High 82 - 115 mg/dL [facility] Work Phone: LABORATORYOrdered By: SYSTEM SYSTEM on 04-16-2025 Albumin BCP dye [Mass/Vol] 2.6 G/dL Low 3.2 - 4.8 G/dL ADM SS Albumin/Globulin [Mass ratio] 0.8 {ratio} Low 0.9 - 1.6 ratio ADM SS ALP [Catalytic activity/Vol] 59 U/L Normal 38 - 126 U/L ADM SS ALT No additional P-5'-P [Catalytic activity/Vol] 23 U/L Normal 12 - 55 U/L ADM SS aPTT Coag (Bld) [Time] 63.1 s High 25.0 - 35.0 seconds [facility] SS Comment on above: Interpretive Data: F or Heparin anticoagulation therapy, the recommended therapeutic range is: 54-77 seconds (APTT Correlation with Anti-Xa therapeutic range of 0.3-0.7 units/ml). PLEASE REFERENCE THE PHARMACY PROTOCOL FOR DOSING. AST [Catalytic activity/Vol] 17 U/L Normal 8 - 34 U/L ADM SS Basophils (Bld) [#/Vol] 0.0 103/mcL Normal 0.0 - 0.3 10^3/mcL Workflow SS Basophils/100 WBC (Bld) 0.1 % Normal 0.0 - 2.5 % Workflow SS Bilirubin [Mass/Vol] 0.50 mg/dL Normal 0.20 - 1.20 mg/dL ADM SS Comment on above: Interpretive Data: U se of this assay is not recommended for patients undergoing treatment with eltrombopag due to the potential for falsely elevated results. Calcium [Mass/Vol] 9.2 mg/dL Normal 8.7 - 10. 4 mg/dL ADM SS Chloride [Moles/Vol] 91 mmol/L Low 98 - 11 0 mEq/L AH ADM SS CO2 [Moles/Vol] 38 mmol/L High 22 - 32 mEq/L AH ADM SS Creatinine [Mass/Vol] 1.46 mg/dL High 0.60 - 1.40 mg/dL AH ADM SS Comment on above: Interpretive Data: T esting performed on ncyclo analyzer using enzymatic creatinine methodology. Electrolyte Balance 9.0 mEq/L Normal 4.0 - 15 .0 mEq/L AH ADM SS Eosinophils (Bld) [#/Vol] 0.5 103/mcL Normal 0.0 - 0.7 10^3/mcL AH Workflow SS Eosinophils/100 WBC (Bld) 5.3 % Normal 0.0 - 6.0 % Workflow SS Erythrocyte distribution width (RBC) [Ratio] 18.8 % High 11.5 - 15.5 % AH Workflow SS Estimated Glomerular Filtration Rate 48 ml/min/1.73sqm Invalid Interpretation Code Chemistry S Comment on above: Interpretive Data: Stages of Chronic Kidney Disease (CKD) Stage [...] race factor to calculate the eGFR results. Globulin 3.2 G/dL Normal 2.5 - 4.2 G/dL AH ADM SS Glucose [Mass/Vol] 144 mg/dL High 82 - 115 mg/dL AH ADM SS Hematocrit (Bld) [Volume fraction] 27.9 % Low 40.0 - 52.0 % Workflow SS Hemoglobin (Bld) [Mass/Vol] 9.1 G/dL Low 13.0 - 17.5 G/dL AH Workflow SS Lymphocytes (Bld) [#/Vol] 0.4 103/mcL Low 0.9 - 4.3 10^3/mcL AH Workflow SS Lymphocytes/100 WBC (Bld) 4.8 % Low 20.0 - 40.0 % AH Workflow SS Magnesium [Mass/Vol] 1.8 mg/dL Normal 1.6 - 2 .4 mg/dL AH ADM SS MCH (RBC) [Entitic mass] 27.8 pg Normal 27. 0 - 33.0 pg AH Workflow SS MCHC 32.8 G/dL Normal 32.0 - 36.0 G/dL AH Workflow SS MCV (RBC) [Entitic vol] 84.7 fL Normal 81.0 - 100.0 fL AH Workflow SS Monocytes (Bld) [#/Vol] 0.7 103/mcL Normal 0.1 - 1.4 10^3/mcL AH Workflow SS Monocytes/100 WBC (Bld) 8.3 % Normal 2.0 - 13.0 % AH Workflow SS Neutrophils (Bld) [#/Vol] 7.3 103/mcL Normal 2.3 - 8.1 10^3/mcL AH Workflow SS Neutrophils/100 WBC (Bld) 81.5 % High 50.0 - 75.0 % AH Workflow SS Platelet mean volume (Bld) [Entitic vol] 8.7 fL Normal 6.4 - 10.5 fL AH Workflow SS Platelets (Bld) [#/Vol] 158 103/mcL Normal 150 - 450 10^3/mcL AH Workflow SS Potassium [Moles/Vol] 3.7 mmol/L Normal 3.5 - 5.0 mEq/L AH ADM SS Protein [Mass/Vol] 5.8 G/dL Normal 5.7 - 8.2 G/dL AH ADM SS RBC (Bld) [#/Vol] 3.29 106/mcL Low 4.50 - 6.00 10^6/mcL AH Workflow SS Sodium [Moles/Vol] 138 mmol/L Normal 136 - 145 mEq/L AH ADM SS Urea nitrogen [Mass/Vol] 33.0 mg/dL High 8.0 - 22.0 mg/dL AH ADM SS Urea nitrogen/Creatinine [Mass ratio] 22.6 ratio High 10.0 - 22.0 ratio AH ADM SS WBC (Bld) [#/Vol] 9.0 103/mcL Normal 4.5 - 10.8 10^3/mcL AH Workflow SS MGon 04-16-2025 Magnesium [Mass/Vol] 1.8 mg/dL Normal 1.6-2.[address] [facility] Comment on above: Performed By: #### C MP, ADIFF, CBC, TROPHS, ANEU, LAC, MYCO, MG, GFR, PRO, PBNP #### [address] [address] .Auto Diffon 04-15-2025 Basophil, Absolute 0.0 10 3/mcL Normal 0.0-0.[address] [facility] Comment on above: Performed By: #### C MP, ADIFF, CBC, TROPHS, ANEU, LAC, MYCO, MG, GFR, PRO, PBNP #### [address] [address] Basophils/100 WBC (Bld) 0.1 % Normal 0.0-2.5 [facility] Comment on above: Performed By: #### C MP, ADIFF, CBC, TROPHS, ANEU, LAC, MYCO, MG, GFR, PRO, PBNP #### [address] [address] Eosinophil, Absolute 0.4 10 3/mcL Normal 0.0-0.7 [facility] Comment on above: Performed By: #### C MP, ADIFF, CBC, TROPHS, ANEU, LAC, MYCO, MG, GFR, PRO, PBNP #### [address] [address] Eosinophils/100 WBC (Bld) 4.1 % Normal 0.0-6.0 [facility] Comment on above: Performed By: #### C MP, ADIFF, CBC, TROPHS, ANEU, LAC, MYCO, MG, GFR, PRO, PBNP #### [address] [address] Lymphocyte, Absolute 0.4 10 3/mcL Low 0.9-4.3 [facility] Comment on above: Performed By: #### C MP, ADIFF, CBC, TROPHS, ANEU, LAC, MYCO, MG, GFR, PRO, PBNP #### [address] [address] Lymphocytes/100 WBC (Bld) 4.5 % Low 20.0-40.0 [facility] Comment on above: Performed By: #### C MP, ADIFF, CBC, TROPHS, ANEU, LAC, MYCO, MG, GFR, PRO, PBNP #### [place] [id number] [place] [address] Monocyte, Absolute 0.8 10 3/mcL Normal 0.1-1.[address] [facility] Comment on above: Performed By: #### C MP, ADIFF, CBC, TROPHS, ANEU, LAC, MYCO, MG, GFR, PRO, PBNP #### [facility] [address] [place] [address] Monocytes/100 WBC (Bld) 8.5 % Normal 2.0-13.0 [facility] Comment on above: Performed By: #### C MP, ADIFF, CBC, TROPHS, ANEU, LAC, MYCO, MG, GFR, PRO, PBNP #### [address] [address] Neutrophils/100 WBC (Bld) 82.8 % High 50.0-75.0 [facility] Comment on above: Performed By: #### C MP, ADIFF, CBC, TROPHS, ANEU, LAC, MYCO, MG, GFR, PRO, PBNP #### [address] [address] .GFRon 04-15-2025 Estimated Glomerular Filtration Rate 50 ml/min/1.73sqm Normal [facility] Comment on above: Result Comment: Stages of Chronic Kidney Disease [...] calculate the eGFR results. Performed By: #### C MP, ADIFF, CBC, TROPHS, ANEU, LAC, MYCO, MG, GFR, PRO, PBNP #### [place] [id number] .NEUABSon 04-15-2025 Neutrophil, Absolute 7.8 10 3/mcL Normal 2.3-8.1 [facility] Comment on above: Performed By: #### C MP, ADIFF, CBC, TROPHS, ANEU, LAC, MYCO, MG, GFR, PRO, PBNP #### [address] [address] APTTon 04-15-2025 aPTT Coag (Bld) [Time] 55.0 s High 25.0-35.0 [facility] Comment on above: Result Comment: For Heparin anticoagulation therapy, the recommended therapeutic range is: 54-77 seconds (APTT Correlation with Anti-Xa therapeutic range of 0.3-0.7 units/ml). PLEASE REFERENCE THE PHARMACY PROTOCOL FOR DOSING. Performed By: #### C MP, ADIFF, CBC, TROPHS, ANEU, LAC, MYCO, MG, GFR, PRO, PBNP #### [address] [address] BFCTon 04-15-2025 Cells Counted BF 100 [facility]IN Comment on above: Performed By: #### C MP, ADIFF, CBC, TROPHS, ANEU, LAC, MYCO, MG, GFR, PRO, PBNP #### [address] [address] Lymphocytes/100 WBC (Bld) 47 % Normal [facility] Comment on above: Performed By: #### C MP, ADIFF, CBC, TROPHS, ANEU, LAC, MYCO, MG, GFR, PRO, PBNP #### [address] [address] Mesothelial Cell % BF 4 % Normal [facility] Comment on above: Performed By: #### C MP, ADIFF, CBC, TROPHS, ANEU, LAC, MYCO, MG, GFR, PRO, PBNP #### [address] [address] Mononuclear cell % BF 1 % Normal [facility] Comment on above: Performed By: #### C MP, ADIFF, CBC, TROPHS, ANEU, LAC, MYCO, MG, GFR, PRO, PBNP #### [address] [address] Neutrophils/100 WBC (Bld) 48 % Normal [facility] Comment on above: Performed By: #### C MP, ADIFF, CBC, TROPHS, ANEU, LAC, MYCO, MG, GFR, PRO, PBNP #### [address] [address] Total Nucleated Cells 172 /mm3 Normal [facility] Comment on above: Performed By: #### C MP, ADIFF, CBC, TROPHS, ANEU, LAC, MYCO, MG, GFR, PRO, PBNP #### [place] [id number] Body Fluid Source Pleural fluid Normal [facility] Comment on above: Result Comment: Refe rence ranges have not been established for this body fluid. The test results must be integrated into the clinical context for interpretation. Performed By: #### C MP, ADIFF, CBC, TROPHS, ANEU, LAC, MYCO, MG, GFR, PRO, PBNP #### [address] [address] BMPon 04-15-2025 BUN/Creatinine Ratio 30.8 ratio High 10.0-22.[address] [facility] Comment on above: Performed By: #### C MP, ADIFF, CBC, TROPHS, ANEU, LAC, MYCO, MG, GFR, PRO, PBNP #### [place] [phone] Calcium [Mass/Vol] 8.7 mg/dL Normal 8.7-10.4 [facility] Comment on above: Performed By: #### C MP, ADIFF, CBC, TROPHS, ANEU, LAC, MYCO, MG, GFR, PRO, PBNP #### [place] [id number] Chloride [Moles/Vol] 94 mmol/L Low 98-[address] [facility] Comment on above: Performed By: #### C MP, ADIFF, CBC, TROPHS, ANEU, LAC, MYCO, MG, GFR, PRO, PBNP #### [address] [address] CO2 [Moles/Vol] 39 mmol/L High 22-32 [facility] Comment on above: Performed By: #### C MP, ADIFF, CBC, TROPHS, ANEU, LAC, MYCO, MG, GFR, PRO, PBNP #### [address] [address] Creatinine [Mass/Vol] 1.43 mg/dL High 0.60-1.40 [facility] Comment on above: Result Comment: Test ing performed on ncyclo analyzer using enzymatic creatinine methodology. Performed By: #### C MP, ADIFF, CBC, TROPHS, ANEU, LAC, MYCO, MG, GFR, PRO, PBNP #### [place] [address] Electrolyte Balance 7.0 mEq/L Normal 4.0-15.[address] [facility] Comment on above: Performed By: #### C MP, ADIFF, CBC, TROPHS, ANEU, LAC, MYCO, MG, GFR, PRO, PBNP #### [address] [address] Glucose [Mass/Vol] 134 mg/dL High 82-115 [facility] Comment on above: Performed By: #### C MP, ADIFF, CBC, TROPHS, ANEU, LAC, MYCO, MG, GFR, PRO, PBNP #### [address] [address] Potassium [Moles/Vol] 3.8 mmol/L Normal 3.5-5.0 [facility] Comment on above: Performed By: #### C MP, ADIFF, CBC, TROPHS, ANEU, LAC, MYCO, MG, GFR, PRO, PBNP #### [address] [address] Sodium [Moles/Vol] 140 mmol/L Normal 136-145 [facility] Comment on above: Performed By: #### C MP, ADIFF, CBC, TROPHS, ANEU, LAC, MYCO, MG, GFR, PRO, PBNP #### [place] [phone] Urea nitrogen [Mass/Vol] 44.0 mg/dL High 8.0-22.0 [facility] Comment on above: Performed By: #### C MP, ADIFF, CBC, TROPHS, ANEU, LAC, MYCO, MG, GFR, PRO, PBNP #### [place] [phone] CBCon 04-15-2025 Erythrocyte distribution width (RBC) [Ratio] 17.9 % High 11.5-15.5 [facility] Comment on above: Performed By: #### C MP, ADIFF, CBC, TROPHS, ANEU, LAC, MYCO, MG, GFR, PRO, PBNP #### [place] [id number] Hematocrit (Bld) [Volume fraction] 26.7 % Low 40.0-52.0 [facility] Comment on above: Performed By: #### C MP, ADIFF, CBC, TROPHS, ANEU, LAC, MYCO, MG, GFR, PRO, PBNP #### [place] [address] Hgb 8.6 G/dL Low 13.0-17.5 [facility] Comment on above: Performed By: #### C MP, ADIFF, CBC, TROPHS, ANEU, LAC, MYCO, MG, GFR, PRO, PBNP #### [place] [phone] MCH (RBC) [Entitic mass] 26.9 pg Low 27.0-33.0 [facility] Comment on above: Performed By: #### C MP, ADIFF, CBC, TROPHS, ANEU, LAC, MYCO, MG, GFR, PRO, PBNP #### [place] [address] MCHC 32.1 G/dL Normal 32.0-36.0 [facility] Comment on above: Performed By: #### C MP, ADIFF, CBC, TROPHS, ANEU, LAC, MYCO, MG, GFR, PRO, PBNP #### [place] [id number] MCV (RBC) [Entitic vol] 83.9 fL Normal 81.0-100.0 [facility] Comment on above: Performed By: #### C MP, ADIFF, CBC, TROPHS, ANEU, LAC, MYCO, MG, GFR, PRO, PBNP #### [place] [address] Platelet 169 10 3/mcL Normal 150-450 [facility] Comment on above: Performed By: #### C MP, ADIFF, CBC, TROPHS, ANEU, LAC, MYCO, MG, GFR, PRO, PBNP #### [place] [address] Platelet mean volume (Bld) [Entitic vol] 8.2 fL Normal 6.4-10.5 [facility] Comment on above: Performed By: #### C MP, ADIFF, CBC, TROPHS, ANEU, LAC, MYCO, MG, GFR, PRO, PBNP #### [place] [address] RBC 3.18 10 6/mcL Low 4.50-6.00 [facility] Comment on above: Performed By: #### C MP, ADIFF, CBC, TROPHS, ANEU, LAC, MYCO, MG, GFR, PRO, PBNP #### [place] [address] WBC 9.4 10 3/mcL Normal 4.5-10.8 [facility] Comment on above: Performed By: #### C MP, ADIFF, CBC, TROPHS, ANEU, LAC, MYCO, MG, GFR, PRO, PBNP #### [place] [address] GLUBFon 04-15-2025 Glucose Body Fluid Spec Type Pleural fluid Normal [facility] Comment on above: Result Comment: The reference interval(s) and other method performance specifications have not been established for this body fluid. The test result must be integrated into the clinical content for interpretation. Performed By: #### C MP, ADIFF, CBC, TROPHS, ANEU, LAC, MYCO, MG, GFR, PRO, PBNP #### [place] [address] Glucose BF 191.0 mg/dL Normal [facility] Comment on above: Performed By: #### C MP, ADIFF, CBC, TROPHS, ANEU, LAC, MYCO, MG, GFR, PRO, PBNP #### [address] [address] HFPon 04-15-2025 Bili Indirect 0.2 mg/dL Normal 0.1-10.0 [facility] Comment on above: Performed By: #### C MP, ADIFF, CBC, TROPHS, ANEU, LAC, MYCO, MG, GFR, PRO, PBNP #### [address] [address] Albumin Level 2.9 G/dL Low 3.2-4.8 [facility] Comment on above: Performed By: #### C MP, ADIFF, CBC, TROPHS, ANEU, LAC, MYCO, MG, GFR, PRO, PBNP #### [address] [address] Albumin/Globulin [Mass ratio] 0.8 {ratio} Low 0.9-1.6 [facility] Comment on above: Performed By: #### C MP, ADIFF, CBC, TROPHS, ANEU, LAC, MYCO, MG, GFR, PRO, PBNP #### [address] [address] ALP [Catalytic activity/Vol] 65 U/L Normal 38-126 [facility] Comment on above: Performed By: #### C MP, ADIFF, CBC, TROPHS, ANEU, LAC, MYCO, MG, GFR, PRO, PBNP #### [address] [address] ALT [Catalytic activity/Vol] 29 U/L Normal 12-55 [facility] Comment on above: Performed By: #### C MP, ADIFF, CBC, TROPHS, ANEU, LAC, MYCO, MG, GFR, PRO, PBNP #### [address] [address] AST [Catalytic activity/Vol] 23 U/L Normal 8-34 [facility] Comment on above: Performed By: #### C MP, ADIFF, CBC, TROPHS, ANEU, LAC, MYCO, MG, GFR, PRO, PBNP #### [place] [address] Bili Direct 0.2 mg/dL Normal 0.0-0.4 [facility] Comment on above: Result Comment: Use of this assay is not recommended for patients undergoing treatment with eltrombopag due to the potential for falsely elevated results. Performed By: #### C MP, ADIFF, CBC, TROPHS, ANEU, LAC, MYCO, MG, GFR, PRO, PBNP #### [place] [address] Bili Total 0.40 mg/dL Normal 0.20-1.20 [facility] Comment on above: Result Comment: Use of this assay is not recommended for patients undergoing treatment with eltrombopag due to the potential for falsely elevated results. Performed By: #### C MP, ADIFF, CBC, TROPHS, ANEU, LAC, MYCO, MG, GFR, PRO, PBNP #### [place] [address] Globulin 3.6 G/dL Normal 2.5-4.2 [facility] Comment on above: Performed By: #### C MP, ADIFF, CBC, TROPHS, ANEU, LAC, MYCO, MG, GFR, PRO, PBNP #### [place] [address] Total Protein 6.5 G/dL Normal 5.7-8.2 [facility] Comment on above: Performed By: #### C MP, ADIFF, CBC, TROPHS, ANEU, LAC, MYCO, MG, GFR, PRO, PBNP #### [place] [address] LABORATORYOrdered By: SYSTEM SYSTEM on 04-15-2025 Albumin BCP dye [Mass/Vol] 2.9 G/dL Low 3.2 - 4.8 G/dL ADM SS Albumin/Globulin [Mass ratio] 0.8 {ratio} Low 0.9 - 1.6 ratio ADM SS ALP [Catalytic activity/Vol] 65 U/L Normal 38 - 126 U/L ADM SS ALT No additional P-5'-P [Catalytic activity/Vol] 29 U/L Normal 12 - 55 U/L AH ADM SS AST [Catalytic activity/Vol] 23 U/L Normal 8 - 34 U/L ADM SS Bili Indirect 0.2 mg/dL Normal 0.1 - 10.0 mg/dL Chemistry S Bilirubin [Mass/Vol] 0.40 mg/dL Normal 0.20 - 1.20 mg/dL AH ADM SS Comment on above: Interpretive Data: U se of this assay is not recommended for patients undergoing treatment with eltrombopag due to the potential for falsely elevated results. Bilirubin.conjugated [Mass/Vol] 0.2 mg/dL Normal 0.0 - 0.4 mg/dL ADM SS Comment on above: Interpretive Data: U se of this assay is not recommended for patients undergoing treatment with eltrombopag due to the potential for falsely elevated results. Globulin 3.6 G/dL Normal 2.5 - 4.2 G/dL ADM SS LDH Lactate to pyruvate reaction [Catalytic activity/Vol] 216 1 Normal 120 - 246 U/L ADM SS Protein [Mass/Vol] 6.5 G/dL Normal 5.7 - 8.2 G/dL ADM SS Glucose (Body fld) [Mass/Vol] 191.0 mg/dL Invalid Interpretation Code AH ADM SS LDH (Body fld) [Catalytic activity/Vol] 137.0 1 Invalid Interpretation Code ADM SS Protein (Body fld) [Mass/Vol] G/dL Invalid Interpretation Code ADM SS Basophils (Bld) [#/Vol] 0.0 103/mcL Normal 0.0 - 0.3 10^3/mcL Workflow SS Basophils/100 WBC (Bld) 0.1 % Normal 0.0 - 2.5 % Workflow SS Calcium [Mass/Vol] 8.7 mg/dL Normal 8.7 - 10. 4 mg/dL ADM SS Chloride [Moles/Vol] 94 mmol/L Low 98 - 11 0 mEq/L ADM SS CO2 [Moles/Vol] 39 mmol/L High 22 - 32 mEq/L ADM SS Creatinine [Mass/Vol] 1.43 mg/dL High 0.60 - 1.40 mg/dL ADM SS Comment on above: Interpretive Data: T esting performed on ncyclo analyzer using enzymatic creatinine methodology. Electrolyte Balance 7.0 mEq/L Normal 4.0 - 15 .0 mEq/L [facility]ENDING S[facility] TO [facility] SS Eosinophils (Bld) [#/Vol] 0.4 103/mcL Normal 0.0 - 0.7 10^3/mcL Workflow SS Eosinophils/100 WBC (Bld) 4.1 % Normal 0.0 - 6.0 % Workflow SS Erythrocyte distribution width (RBC) [Ratio] 17.9 % High 11.5 - 15.5 % Workflow SS Estimated Glomerular Filtration Rate 50 ml/min/1.73sqm Invalid Interpretation Code Chemistry S Comment on above: Interpretive Data: Stages of Chronic Kidney Disease (CKD) Stage [...] race factor to calculate the eGFR results. Glucose [Mass/Vol] 134 mg/dL High 82 - 115 mg/dL [facility] SS Hematocrit (Bld) [Volume fraction] 26.7 % Low 40.0 - 52.0 % [facility] SS Hemoglobin (Bld) [Mass/Vol] 8.6 G/dL Low 13.0 - 17.5 G/dL Workflow SS Lymphocytes (Bld) [#/Vol] 0.4 103/mcL Low 0.9 - 4.3 10^3/mcL Workflow SS Lymphocytes/100 WBC (Bld) 4.5 % Low 20.0 - 40.0 % Workflow SS Magnesium [Mass/Vol] 1.8 mg/dL Normal 1.6 - 2 .4 mg/dL [facility]END[facility] SS MCH (RBC) [Entitic mass] 26.9 pg Low 27. 0 - 33.0 pg [facility] SS MCHC 32.1 G/dL Normal 32.0 - 36.0 G/dL [facility] SS MCV (RBC) [Entitic vol] 83.9 fL Normal 81.0 - 100.0 fL [facility] SS Monocytes (Bld) [#/Vol] 0.8 103/mcL Normal 0.1 - 1.4 10^3/mcL AH Workflow SS Monocytes/100 WBC (Bld) 8.5 % Normal 2.0 - 13.0 % [facility] Workflow SS Natriuretic peptide.B prohormone N-Terminal IA [Mass/Vol] 4360 pg/mL High 0 - 1800 pg/mL [facility] ADM SS Neutrophils (Bld) [#/Vol] 7.8 103/mcL Normal 2.3 - 8.1 10^3/mcL [facility] Workflow SS Neutrophils/100 WBC (Bld) 82.8 % High 50.0 - 75.0 % [facility] Workflow SS Platelet mean volume (Bld) [Entitic vol] 8.2 fL Normal 6.4 - 10.5 fL [facility] Workflow SS Platelets (Bld) [#/Vol] 169 103/mcL Normal 150 - 450 10^3/mcL [facility] Workflow SS Potassium [Moles/Vol] 3.8 mmol/L Normal 3.5 - 5.0 mEq/L AH ADM SS RBC (Bld) [#/Vol] 3.18 106/mcL Low 4.50 - 6.00 10^6/mcL [facility] Workflow SS Sodium [Moles/Vol] 140 mmol/L Normal 136 - 145 mEq/L AH ADM SS Urea nitrogen [Mass/Vol] 44.0 mg/dL High 8.0 - 22.0 mg/dL AH ADM SS Urea nitrogen/Creatinine [Mass ratio] 30.8 ratio High 10.0 - 22.0 ratio AH ADM SS WBC (Bld) [#/Vol] 9.4 103/mcL Normal 4.5 - 10.8 10^3/mcL [facility] Workflow SS LABORATORYOrdered By: Chun Hancock on 04-15-2025 Cells Counted Total (Unsp spec) [#] 100 1 Invalid Interpretation Code AH Manual Heme SS Lymphocytes/100 WBC (Body fld) 47 % Invalid Interpretation Code AH Manual Heme SS Mesothelial Cell % BF 4 % Invalid Interpretation Code AH Manual Heme SS Monocytes+Macrophages/10 0 WBC (Body fld) 1 % Invalid Interpretation Code AH Manual Heme SS Neutrophils/100 WBC (Body fld) 48 % Invalid Interpretation Code AH Manual Heme SS Nucleated RBC/100 WBC (Bld) [Ratio] 172 % Invalid Interpretation Code AH Manual Heme SS LABORATORYOrdered By: Laya Mandel on 04-15-2025 Glucose Body Fluid Spec Type Pleural fluid 29 (04/15/25 10:30 AM) Normal AH Chemistry S Comment on above: Interpretive Data: T he reference interval(s) and other method performance specifications have not been established for this body fluid. The test result must be integrated into the clinical content for interpretation. LDH Body Fluid Spec Type Pleural fluid 3 0 (04/15/25 10:30 AM) Normal AH Chemistry S Comment on above: Interpretive Data: T he reference interval(s) and other method performance specifications have not been established for this body fluid. The test result must be integrated into the clinical content for interpretation. . Protein BF Type Pleural fluid 25 (04/15/25 10:30 AM) Normal AH Chemistry S Comment on above: Interpretive Data: T he reference interval(s) and other method performance specifications have not been established for this body fluid. The test result must be integrated into the clinical content for interpretation. Specimen source Nom (Body fld) Pleural fluid 19 (04/15/25 10:30 AM) Normal AH Manual Heme SS Comment on above: Interpretive Data: R eference ranges have not been established for this body fluid. The test results must be integrated into the clinical context for interpretation. LABORATORYOrdered By: Carrie Torres on 04-15-2025 pH (Bld) 7.4 [pH] Invalid Interpretation Code AH Main Rapid Comm SS Comment on above: Result Comment: righ t pH BF Type Pleural fluid 26 (04/15/25 10:30 AM) Normal AH Chemistry S Comment on above: Interpretive Data: T he reference interval(s) and other method performance specifications have not been established for this body fluid. The test result must be integrated into the clinical content for interpretation. LDBFon 04-15-2025 LDH Body Fluid Spec Type Pleural fluid Normal [facility] Comment on above: Result Comment: The reference interval(s) and other method performance specifications have not been established for this body fluid. The test result must be integrated into the clinical content for interpretation. . Performed By: #### C MP, ADIFF, CBC, TROPHS, ANEU, LAC, MYCO, MG, GFR, PRO, PBNP #### [place] [address] LDH BF 137.0 U/L Normal [facility] Comment on above: Performed By: #### C MP, ADIFF, CBC, TROPHS, ANEU, LAC, MYCO, MG, GFR, PRO, PBNP #### [address] [address] LDHon 04-15-2025 LDH 216 U/L Normal 120-246 [facility] Comment on above: Performed By: #### C MP, ADIFF, CBC, TROPHS, ANEU, LAC, MYCO, MG, GFR, PRO, PBNP #### [address] [address] MGon 04-15-2025 Magnesium [Mass/Vol] 1.8 mg/dL Normal 1.6-2.[address] [facility] Comment on above: Performed By: #### C MP, ADIFF, CBC, TROPHS, ANEU, LAC, MYCO, MG, GFR, PRO, PBNP #### [place] [address] No Panel Informationon 04-15 AFS Acid Fast Smear from Concentrated Specimen: Negative [facility] Work Phone: Culture Body Fluid Culture has been rec eived in lab and is no growth to date. Routine cultures are held for 5 days. [facility] Work Phone: FUNSM No fungal elements observed by calcofluor white stain. [facility] Work Phone: GS Sedimented 1+ Polymorphonuclear cells 1+ Mononuclear cells No organisms seen. [facility] Work Phone: Non-Licensed [employer] Cytology Reporton Non-Licensed [employer] Cytology Report Event Display: N G Specimen Right pleural fluid MÓNICA VIEIRA MD:VERIFY; Authored Date: [id number] [facility] Work Phone: Non-Licensed [employer] Cytology Report Event Display: N G Signature Pathology Report verified by [facility] Screened by: ANMOL GARCIA Electronically signed by MÓNICA VIEIRA Sign-Out Date: 04/17/2025 14:51 Performing Lab: [facility], [address] [place] [address] Pathology Dept MÓNICA VIEIRA MD:VERIFY; Authored Date: [facility] Work Phone: Non-Licensed [employer] Cytology Report Event Display: N G Clin Info Pleural effusion MÓNICA VIEIRA MD:VERIFY; Authored Date: [facility] 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 For all ancillary stains, positive and negative controls stain appropriately. Performance characteristics of immunohistochemical and chromogenic in-situ hybridization tests have been determined by [facility]. These tests are used for clinical purposes, They should not be regarded as investigational or for research. MÓNICA VIEIRA MD:VERIFY; Authored Date: [id number] [facility] Work Phone: PBNPon 04-15-2025 Natriuretic peptide B (Bld) [Mass/Vol] 4360 pg/mL High 0-1800 [facility] Comment on above: Performed By: #### C MP, ADIFF, CBC, TROPHS, ANEU, LAC, MYCO, MG, GFR, PRO, PBNP #### [facility] [address] [place] [address] PHBFon 04-15-2025 pH BF 7.4 Normal [facility] Comment on above: Result Comment: domingo becerril Performed By: #### C MP, ADIFF, CBC, TROPHS, ANEU, LAC, MYCO, MG, GFR, PRO, PBNP #### [place] [id number] pH BF Spec Type Pleural fluid Normal [facility] Comment on above: Result Comment: The reference interval(s) and other method performance specifications have not been established for this body fluid. The test result must be integrated into the clinical content for interpretation. Performed By: #### C MP, ADIFF, CBC, TROPHS, ANEU, LAC, MYCO, MG, GFR, PRO, PBNP #### [place] [id number] PROBFon 04-15-2025 Protein BF Type Pleural fluid Normal [facility] Comment on above: Result Comment: The reference interval(s) and other method performance specifications have not been established for this body fluid. The test result must be integrated into the clinical content for interpretation. Performed By: #### C MP, ADIFF, CBC, TROPHS, ANEU, LAC, MYCO, MG, GFR, PRO, PBNP #### [place] [address] Protein BF <2.0 Normal [facility] Comment on above: Performed By: #### C MP, ADIFF, CBC, TROPHS, ANEU, LAC, MYCO, MG, GFR, PRO, PBNP #### [place] [address] XR CHEST 1 VIEWon 04-15-2025 XR CHEST 1 VIEW ORIGINAL EXAMINATION: ONE XRAY VIEW OF THE CHEST04/15/2025 11:36 am Portable upright COMPARISON: Same day HISTORY: ORDERING SYSTEM PROVIDED HISTORY: Reason for Exam: s/p RIGHT thoracentesis, FINDINGS: Right pleural effusion has decreased. No pneumothorax is seen. No other significant change. IMPRESSION: No postprocedure pneumothorax. Interpreted by: Shahbaz Foley MD Preliminary Report By: Shahbaz Foley MD Electronically signed By Shahbaz Foley MD Dictated Date: 04/15/2025 11:43:16 AM Prelim Date: 04/15/2025 11:43:46 AM Sign Date: 04/15/2025 11:43:46 AM Ordering Provider: OLAMIDE GONZALEZ [facility] XR CHEST 1 VIEW ORIGINAL EXAMINATION: ONE XRAY VIEW OF THE [...] No pneumothorax is visible. Interpreted by: Levi Marcial MD Preliminary Report By: Levi Marcial MD Electronically signed By Levi Marcial MD Dictated Date: 04/15/2025 7:20:27 AM Prelim Date: 04/15/2025 7:22:03 AM Sign Date: 04/15/2025 7:22:03 AM Ordering Provider: GLORIA DAVIS [facility] .Auto Diffon 04-14-2025 Basophil, Absolute 0.0 10 3/mcL Normal 0.0-0.[address] [facility] Comment on above: Performed By: #### C MP, ADIFF, CBC, TROPHS, ANEU, LAC, MYCO, MG, GFR, PRO, PBNP #### [address] [address] Basophils/100 WBC (Bld) 0.2 % Normal 0.0-2.5 [facility] Comment on above: Performed By: #### C MP, ADIFF, CBC, TROPHS, ANEU, LAC, MYCO, MG, GFR, PRO, PBNP #### [address] [address] Eosinophil, Absolute 0.2 10 3/mcL Normal 0.0-0.7 [facility] Comment on above: Performed By: #### C MP, ADIFF, CBC, TROPHS, ANEU, LAC, MYCO, MG, GFR, PRO, PBNP #### [address] [address] Eosinophils/100 WBC (Bld) 1.9 % Normal 0.0-6.0 [facility] Comment on above: Performed By: #### C MP, ADIFF, CBC, TROPHS, ANEU, LAC, MYCO, MG, GFR, PRO, PBNP #### [address] [address] Lymphocyte, Absolute 0.4 10 3/mcL Low 0.9-4.3 [facility] Comment on above: Performed By: #### C MP, ADIFF, CBC, TROPHS, ANEU, LAC, MYCO, MG, GFR, PRO, PBNP #### [address] [address] Lymphocytes/100 WBC (Bld) 4.0 % Low 20.0-40.0 [facility] Comment on above: Performed By: #### C MP, ADIFF, CBC, TROPHS, ANEU, LAC, MYCO, MG, GFR, PRO, PBNP #### [address] [address] Monocyte, Absolute 0.9 10 3/mcL Normal 0.1-1.[address] [facility] Comment on above: Performed By: #### C MP, ADIFF, CBC, TROPHS, ANEU, LAC, MYCO, MG, GFR, PRO, PBNP #### [address] [address] Monocytes/100 WBC (Bld) 8.3 % Normal 2.0-13.0 [facility] Comment on above: Performed By: #### C MP, ADIFF, CBC, TROPHS, ANEU, LAC, MYCO, MG, GFR, PRO, PBNP #### [address] [address] Neutrophils/100 WBC (Bld) 85.6 % High 50.0-75.0 [facility] Comment on above: Performed By: #### C MP, ADIFF, CBC, TROPHS, ANEU, LAC, MYCO, MG, GFR, PRO, PBNP #### [address] [address] .GFRon 04-14-2025 Estimated Glomerular Filtration Rate 49 ml/min/1.73sqm Normal [facility] Comment on above: Result Comment: Stages of Chronic Kidney Disease [...] calculate the eGFR results. Performed By: #### C MP, ADIFF, CBC, TROPHS, ANEU, LAC, MYCO, MG, GFR, PRO, PBNP #### [place] [id number] .NEUABSon 04-14-2025 Neutrophil, Absolute 9.2 10 3/mcL High 2.3-8.1 [facility] Comment on above: Performed By: #### C MP, ADIFF, CBC, TROPHS, ANEU, LAC, MYCO, MG, GFR, PRO, PBNP #### [place] [address] APTTon 04-14-2025 aPTT Coag (Bld) [Time] 28.2 s Normal 25.0-35.0 [facility] Comment on above: Result Comment: For Heparin anticoagulation therapy, the recommended therapeutic range is: 54-77 seconds (APTT Correlation with Anti-Xa therapeutic range of 0.3-0.7 units/ml). PLEASE REFERENCE THE PHARMACY PROTOCOL FOR DOSING. Performed By: #### C MP, ADIFF, CBC, TROPHS, ANEU, LAC, MYCO, MG, GFR, PRO, PBNP #### [address] [address] BMPon 04-14-2025 BUN/Creatinine Ratio 32.4 ratio High 10.0-22.[address] [facility] Comment on above: Performed By: #### C MP, ADIFF, CBC, TROPHS, ANEU, LAC, MYCO, MG, GFR, PRO, PBNP #### [place] [address] Calcium [Mass/Vol] 8.6 mg/dL Low 8.7-10.4 [facility] Comment on above: Performed By: #### C MP, ADIFF, CBC, TROPHS, ANEU, LAC, MYCO, MG, GFR, PRO, PBNP #### [address] [address] Chloride [Moles/Vol] 98 mmol/L Normal 98-[address] [facility] Comment on above: Performed By: #### C MP, ADIFF, CBC, TROPHS, ANEU, LAC, MYCO, MG, GFR, PRO, PBNP #### [address] [address] CO2 [Moles/Vol] 40 mmol/L Critically abnormal 22-32 [facility] Comment on above: Performed By: #### C MP, ADIFF, CBC, TROPHS, ANEU, LAC, MYCO, MG, GFR, PRO, PBNP #### [address] [address] Creatinine [Mass/Vol] 1.45 mg/dL High 0.60-1.40 [facility] Comment on above: Result Comment: Test ing performed on ncyclo analyzer using enzymatic creatinine methodology. Performed By: #### C MP, ADIFF, CBC, TROPHS, ANEU, LAC, MYCO, MG, GFR, PRO, PBNP #### [address] [address] Electrolyte Balance 5.0 mEq/L Normal 4.0-15.[address] [facility] Comment on above: Performed By: #### C MP, ADIFF, CBC, TROPHS, ANEU, LAC, MYCO, MG, GFR, PRO, PBNP #### [address] [address] Glucose [Mass/Vol] 88 mg/dL Normal 82-115 [facility] Comment on above: Performed By: #### C MP, ADIFF, CBC, TROPHS, ANEU, LAC, MYCO, MG, GFR, PRO, PBNP #### [address] [address] Potassium [Moles/Vol] 4.3 mmol/L Normal 3.5-5.0 [facility] Comment on above: Performed By: #### C MP, ADIFF, CBC, TROPHS, ANEU, LAC, MYCO, MG, GFR, PRO, PBNP #### [place] [id number] Sodium [Moles/Vol] 143 mmol/L Normal 136-145 [facility] Comment on above: Performed By: #### C MP, ADIFF, CBC, TROPHS, ANEU, LAC, MYCO, MG, GFR, PRO, PBNP #### [place] [id number] Urea nitrogen [Mass/Vol] 47.0 mg/dL High 8.0-22.0 [facility] Comment on above: Performed By: #### C MP, ADIFF, CBC, TROPHS, ANEU, LAC, MYCO, MG, GFR, PRO, PBNP #### [place] [id number] CBCon 04-14-2025 Erythrocyte distribution width (RBC) [Ratio] 18.4 % High 11.5-15.5 [facility] Comment on above: Performed By: #### C MP, ADIFF, CBC, TROPHS, ANEU, LAC, MYCO, MG, GFR, PRO, PBNP #### [place] [id number] Hematocrit (Bld) [Volume fraction] 29.0 % Low 40.0-52.0 [facility] Comment on above: Performed By: #### C MP, ADIFF, CBC, TROPHS, ANEU, LAC, MYCO, MG, GFR, PRO, PBNP #### [place] [id number] Hgb 9.0 G/dL Low 13.0-17.5 [facility] Comment on above: Performed By: #### C MP, ADIFF, CBC, TROPHS, ANEU, LAC, MYCO, MG, GFR, PRO, PBNP #### [place] [id number] MCH (RBC) [Entitic mass] 26.3 pg Low 27.0-33.0 [facility] Comment on above: Performed By: #### C MP, ADIFF, CBC, TROPHS, ANEU, LAC, MYCO, MG, GFR, PRO, PBNP #### [place] [id number] MCHC 31.0 G/dL Low 32.0-36.0 [facility] Comment on above: Performed By: #### C MP, ADIFF, CBC, TROPHS, ANEU, LAC, MYCO, MG, GFR, PRO, PBNP #### [place] [address] MCV (RBC) [Entitic vol] 84.9 fL Normal 81.0-100.0 [facility] Comment on above: Performed By: #### C MP, ADIFF, CBC, TROPHS, ANEU, LAC, MYCO, MG, GFR, PRO, PBNP #### [place] [address] Platelet 165 10 3/mcL Normal 150-450 [facility] Comment on above: Performed By: #### C MP, ADIFF, CBC, TROPHS, ANEU, LAC, MYCO, MG, GFR, PRO, PBNP #### [place] [id number] Platelet mean volume (Bld) [Entitic vol] 7.8 fL Normal 6.4-10.5 [facility] Comment on above: Performed By: #### C MP, ADIFF, CBC, TROPHS, ANEU, LAC, MYCO, MG, GFR, PRO, PBNP #### [place] [address] RBC 3.41 10 6/mcL Low 4.50-6.00 [facility] Comment on above: Performed By: #### C MP, ADIFF, CBC, TROPHS, ANEU, LAC, MYCO, MG, GFR, PRO, PBNP #### [place] [address] WBC 10.8 10 3/mcL Normal 4.5-10.8 [facility] Comment on above: Performed By: #### C MP, ADIFF, CBC, TROPHS, ANEU, LAC, MYCO, MG, GFR, PRO, PBNP #### [facility] [address] [place] [address] LABORATORYOrdered By: SYSTEM SYSTEM on 04-14-2025 PT Coag (PPP) [Time] 13.9 s Normal 9.0 - 1 4.4 seconds Daljit Comment on above: Interpretive Data: E ffective 03/03/08, Protime results may be affected by some antibiotics (i.e. Ciprofloxacin, Azithromycin, Bactrim) which may potentiate the action of oral anticoagulants, with further increases in Protime/INR. PT International Ratio 1.2 ratio Invalid Interpretation Code Daljit Comment on above: Interpretive Data: T he [employer] (CHEST, 1992, 102:312S-25S) recommended therapeutic range for oral anticoagulant therapy is: LOW RISK: Prophylaxis of venous thrombosis INR: 2.0-3.0 Treatment of pulmonary embolism 2.0-3.0 Prevention of systemic embolism 2.0-3.0 HIGH RISK: Mechanical prosthetic valves 2.5-3.5 Troponin I.cardiac DL <= 0.01 ng/mL [Mass/Vol] 160 ng/L High 0 - 54 ng/L [facility] Comment on above: Interpretive Data: High Sensitive Troponin I Reference Ranges: Female: 0-34 ng/L Male: 0-54 ng/L Testing performed on [employer] analyzer using direct chemiluminescent technology. No Panel Informationon 04-14 Legionella Urine Ag Presumptive negative for L. pneumophila serogroup 1 antigen in urine, suggesting no recent or current infection. Legionnaire's disease cannot be ruled out since other serogroups and species may also cause disease. [facility] Work Phone: Streptococcus Pneumoniae Urine Antig Presumptive negative for pneumococcal pneumonia, suggesting no current or recent pneumococcal infection. Infection due to Strep pneumoniae cannot be ruled out since the antigen present in the sample may be below the detection limit of the test. [facility] Work Phone: Comment on above: This test has not be en evaluated on patients taking antibiotics for greater than 24 hours or on patients who have recently completed an antibiotic regimen. The accuracy of this test has not been proven in young children. PROon 04-14-2025 INR Coag (PPP) [Relative time] 1.2 {INR} Normal [facility] Comment on above: Result Comment: The [employer] (CHEST, 1992, 102:312S-25S) recommended therapeutic range for oral anticoagulant therapy is: LOW RISK: Prophylaxis of venous thrombosis INR: 2.0-3.0 Treatment of pulmonary embolism 2.0-3.0 Prevention of systemic embolism 2.0-3.0 HIGH RISK: Mechanical prosthetic valves 2.5-3.5 Performed By: #### C MP, ADIFF, CBC, TROPHS, ANEU, LAC, MYCO, MG, GFR, PRO, PBNP #### [place] [id number] [address] [place] [id number] PT Coag (PPP) [Time] 13.9 s Normal 9.0-14.[address] [facility] Comment on above: Result Comment: Effe ctive 03/03/08, Protime results may be affected by some antibiotics (i.e. Ciprofloxacin, Azithromycin, Bactrim) which may potentiate the action of oral anticoagulants, with further increases in Protime/INR. Performed By: #### C MP, ADIFF, CBC, TROPHS, ANEU, LAC, MYCO, MG, GFR, PRO, PBNP #### [place] [id number] TROPHSon 04-14-2025 High Sensitivity Troponin I 160 ng/L High 0-54 [facility] Comment on above: Result Comment: High Sensitive Troponin I Reference Ranges: Female: 0-34 ng/L Male: 0-54 ng/L Testing performed on [employer] IM analyzer using direct chemiluminescent technology. Performed By: #### C MP, ADIFF, CBC, TROPHS, ANEU, LAC, MYCO, MG, GFR, PRO, PBNP #### [address] [address] XR CHEST 1 VIEWon 04-14-2025 XR CHEST 1 VIEW ORIGINAL EXAMINATION: ONE XRAY VIEW OF THE [...] Small right apical pneumothorax. Interpreted by: Levi Marcial MD Preliminary Report By: Levi Marcial MD Electronically signed By Levi Marcial MD Dictated Date: 04/14/2025 6:58:31 AM Prelim Date: 04/14/2025 7:00:29 AM Sign Date: 04/14/2025 7:00:29 AM Ordering Provider: COLLEEN Francois [facility] .Auto Diffon 04-13-2025 Basophil, Absolute 0.0 10 3/mcL Normal 0.0-0.[address] [facility] Comment on above: Performed By: #### C MP, ADIFF, CBC, TROPHS, ANEU, LAC, MYCO, MG, GFR, PRO, PBNP #### [address] [address] Basophils/100 WBC (Bld) 0.0 % Normal 0.0-2.5 [facility] Comment on above: Performed By: #### C MP, ADIFF, CBC, TROPHS, ANEU, LAC, MYCO, MG, GFR, PRO, PBNP #### [address] [address] Eosinophil, Absolute 0.0 10 3/mcL Normal 0.0-0.7 [facility] Comment on above: Performed By: #### C MP, ADIFF, CBC, TROPHS, ANEU, LAC, MYCO, MG, GFR, PRO, PBNP #### [address] [address] Eosinophils/100 WBC (Bld) 0.1 % Normal 0.0-6.0 [facility] Comment on above: Performed By: #### C MP, ADIFF, CBC, TROPHS, ANEU, LAC, MYCO, MG, GFR, PRO, PBNP #### [address] [address] Lymphocyte, Absolute 0.3 10 3/mcL Low 0.9-4.3 [facility] Comment on above: Performed By: #### C MP, ADIFF, CBC, TROPHS, ANEU, LAC, MYCO, MG, GFR, PRO, PBNP #### [address] [address] Lymphocytes/100 WBC (Bld) 3.0 % Low 20.0-40.0 [facility] Comment on above: Performed By: #### C MP, ADIFF, CBC, TROPHS, ANEU, LAC, MYCO, MG, GFR, PRO, PBNP #### [address] [address] Monocyte, Absolute 0.7 10 3/mcL Normal 0.1-1.[address] [facility] Comment on above: Performed By: #### C MP, ADIFF, CBC, TROPHS, ANEU, LAC, MYCO, MG, GFR, PRO, PBNP #### [address] [address] Monocytes/100 WBC (Bld) 6.3 % Normal 2.0-13.0 [facility] Comment on above: Performed By: #### C MP, ADIFF, CBC, TROPHS, ANEU, LAC, MYCO, MG, GFR, PRO, PBNP #### [address] [address] Neutrophils/100 WBC (Bld) 90.6 % High 50.0-75.0 [facility] Comment on above: Performed By: #### C MP, ADIFF, CBC, TROPHS, ANEU, LAC, MYCO, MG, GFR, PRO, PBNP #### [address] [address] .GFRon 04-13-2025 Estimated Glomerular Filtration Rate 48 ml/min/1.73sqm Normal [facility] Comment on above: Result Comment: Stages of Chronic Kidney Disease [...] calculate the eGFR results. Performed By: #### C MP, ADIFF, CBC, TROPHS, ANEU, LAC, MYCO, MG, GFR, PRO, PBNP #### [place] [address] .NEUABSon 04-13-2025 Neutrophil, Absolute 10.5 10 3/mcL High 2.3-8.1 [facility] Comment on above: Performed By: #### C MP, ADIFF, CBC, TROPHS, ANEU, LAC, MYCO, MG, GFR, PRO, PBNP #### [place] [address] CBCon 04-13-2025 Erythrocyte distribution width (RBC) [Ratio] 17.7 % High 11.5-15.5 [facility] Comment on above: Performed By: #### C MP, ADIFF, CBC, TROPHS, ANEU, LAC, MYCO, MG, GFR, PRO, PBNP #### [place] [address] Hematocrit (Bld) [Volume fraction] 29.7 % Low 40.0-52.0 [facility] Comment on above: Performed By: #### C MP, ADIFF, CBC, TROPHS, ANEU, LAC, MYCO, MG, GFR, PRO, PBNP #### [place] [address] Hgb 9.4 G/dL Low 13.0-17.5 [facility] Comment on above: Performed By: #### C MP, ADIFF, CBC, TROPHS, ANEU, LAC, MYCO, MG, GFR, PRO, PBNP #### [place] [address] MCH (RBC) [Entitic mass] 26.6 pg Low 27.0-33.0 [facility] Comment on above: Performed By: #### C MP, ADIFF, CBC, TROPHS, ANEU, LAC, MYCO, MG, GFR, PRO, PBNP #### [place] [address] MCHC 31.6 G/dL Low 32.0-36.0 [facility] Comment on above: Performed By: #### C MP, ADIFF, CBC, TROPHS, ANEU, LAC, MYCO, MG, GFR, PRO, PBNP #### [place] [address] MCV (RBC) [Entitic vol] 84.3 fL Normal 81.0-100.0 [facility] Comment on above: Performed By: #### C MP, ADIFF, CBC, TROPHS, ANEU, LAC, MYCO, MG, GFR, PRO, PBNP #### [place] [address] Platelet 201 10 3/mcL Normal 150-450 [facility] Comment on above: Performed By: #### C MP, ADIFF, CBC, TROPHS, ANEU, LAC, MYCO, MG, GFR, PRO, PBNP #### [place] [address] Platelet mean volume (Bld) [Entitic vol] 8.1 fL Normal 6.4-10.5 [facility] Comment on above: Performed By: #### C MP, ADIFF, CBC, TROPHS, ANEU, LAC, MYCO, MG, GFR, PRO, PBNP #### [place] [address] RBC 3.52 10 6/mcL Low 4.50-6.00 [facility] Comment on above: Performed By: #### C MP, ADIFF, CBC, TROPHS, ANEU, LAC, MYCO, MG, GFR, PRO, PBNP #### [place] [address] WBC 11.6 10 3/mcL High 4.5-10.8 [facility] Comment on above: Performed By: #### C MP, ADIFF, CBC, TROPHS, ANEU, LAC, MYCO, MG, GFR, PRO, PBNP #### [place] [address] CMPon 04-13-2025 Albumin Level 2.9 G/dL Low 3.2-4.8 [facility] Comment on above: Performed By: #### C MP, ADIFF, CBC, TROPHS, ANEU, LAC, MYCO, MG, GFR, PRO, PBNP #### [place] [address] Albumin/Globulin [Mass ratio] 0.9 {ratio} Normal 0.9-1.6 [facility] Comment on above: Performed By: #### C MP, ADIFF, CBC, TROPHS, ANEU, LAC, MYCO, MG, GFR, PRO, PBNP #### [place] [address] ALP [Catalytic activity/Vol] 58 U/L Normal 38-126 [facility] Comment on above: Performed By: #### C MP, ADIFF, CBC, TROPHS, ANEU, LAC, MYCO, MG, GFR, PRO, PBNP #### [place] [id number] ALT [Catalytic activity/Vol] 32 U/L Normal 12-55 [facility] Comment on above: Performed By: #### C MP, ADIFF, CBC, TROPHS, ANEU, LAC, MYCO, MG, GFR, PRO, PBNP #### [place] [address] AST [Catalytic activity/Vol] 26 U/L Normal 8-34 [facility] Comment on above: Performed By: #### C MP, ADIFF, CBC, TROPHS, ANEU, LAC, MYCO, MG, GFR, PRO, PBNP #### [place] [address] Bili Total 0.50 mg/dL Normal 0.20-1.20 [facility] Comment on above: Result Comment: Use of this assay is not recommended for patients undergoing treatment with eltrombopag due to the potential for falsely elevated results. Performed By: #### C MP, ADIFF, CBC, TROPHS, ANEU, LAC, MYCO, MG, GFR, PRO, PBNP #### [place] [id number] BUN/Creatinine Ratio 33.3 ratio High 10.0-22.[address] [facility] Comment on above: Performed By: #### C MP, ADIFF, CBC, TROPHS, ANEU, LAC, MYCO, MG, GFR, PRO, PBNP #### [address] [address] Calcium [Mass/Vol] 8.8 mg/dL Normal 8.7-10.4 [facility] Comment on above: Performed By: #### C MP, ADIFF, CBC, TROPHS, ANEU, LAC, MYCO, MG, GFR, PRO, PBNP #### [place] [id number] Chloride [Moles/Vol] 100 mmol/L Normal 98-[address] [facility] Comment on above: Performed By: #### C MP, ADIFF, CBC, TROPHS, ANEU, LAC, MYCO, MG, GFR, PRO, PBNP #### [place] [id number] CO2 [Moles/Vol] 39 mmol/L High 22-32 [facility] Comment on above: Performed By: #### C MP, ADIFF, CBC, TROPHS, ANEU, LAC, MYCO, MG, GFR, PRO, PBNP #### [place] [id number] Creatinine [Mass/Vol] 1.47 mg/dL High 0.60-1.40 [facility] Comment on above: Result Comment: Test ing performed on ncyclo analyzer using enzymatic creatinine methodology. Performed By: #### C MP, ADIFF, CBC, TROPHS, ANEU, LAC, MYCO, MG, GFR, PRO, PBNP #### [place] [id number] Electrolyte Balance 4.0 mEq/L Normal 4.0-15.[address] [facility] Comment on above: Performed By: #### C MP, ADIFF, CBC, TROPHS, ANEU, LAC, MYCO, MG, GFR, PRO, PBNP #### [place] [id number] Globulin 3.4 G/dL Normal 2.5-4.2 [facility] Comment on above: Performed By: #### C MP, ADIFF, CBC, TROPHS, ANEU, LAC, MYCO, MG, GFR, PRO, PBNP #### [address] [address] Glucose [Mass/Vol] 192 mg/dL High 82-115 [facility] Comment on above: Performed By: #### C MP, ADIFF, CBC, TROPHS, ANEU, LAC, MYCO, MG, GFR, PRO, PBNP #### [address] [address] Potassium [Moles/Vol] 4.5 mmol/L Normal 3.5-5.0 [facility] Comment on above: Performed By: #### C MP, ADIFF, CBC, TROPHS, ANEU, LAC, MYCO, MG, GFR, PRO, PBNP #### [address] [address] Sodium [Moles/Vol] 143 mmol/L Normal 136-145 [facility] Comment on above: Performed By: #### C MP, ADIFF, CBC, TROPHS, ANEU, LAC, MYCO, MG, GFR, PRO, PBNP #### [address] [address] Total Protein 6.3 G/dL Normal 5.7-8.2 [facility] Comment on above: Performed By: #### C MP, ADIFF, CBC, TROPHS, ANEU, LAC, MYCO, MG, GFR, PRO, PBNP #### [address] [address] Urea nitrogen [Mass/Vol] 49.0 mg/dL High 8.0-22.0 [facility] Comment on above: Performed By: #### C MP, ADIFF, CBC, TROPHS, ANEU, LAC, MYCO, MG, GFR, PRO, PBNP #### [address] [address] LABORATORYOrdered By: SYSTEM SYSTEM on 04-13-2025 Troponin I.cardiac DL <= 0.01 ng/mL [Mass/Vol] 174 ng/L High 0 - 54 ng/L ADM Comment on above: Interpretive Data: High Sensitive Troponin I Reference Ranges: Female: 0-34 ng/L Male: 0-54 ng/L Testing performed on [employer] IM analyzer using direct chemiluminescent technology. Lactate [Moles/Vol] 1.2 mmol/L Normal 0.5 - 2. 2 mmol/L ADM SS Natriuretic peptide.B prohormone N-Terminal IA [Mass/Vol] 6315 pg/mL High 0 - 1800 pg/mL ADM PT Coag (PPP) [Time] 14.5 s High 9.0 - 1 4.4 seconds [facility] SS Comment on above: Interpretive Data: E ffective 03/03/08, Protime results may be affected by some antibiotics (i.e. Ciprofloxacin, Azithromycin, Bactrim) which may potentiate the action of oral anticoagulants, with further increases in Protime/INR. PT International Ratio 1.3 ratio Invalid Interpretation Code [facility] Comment on above: Interpretive Data: Tyler mckeon [employer] (CHEST, 1992, 102:312S-25S) recommended therapeutic range for oral anticoagulant therapy is: LOW RISK: Prophylaxis of venous thrombosis INR: 2.0-3.0 Treatment of pulmonary embolism 2.0-3.0 Prevention of systemic embolism 2.0-3.0 HIGH RISK: Mechanical prosthetic valves 2.5-3.5 Troponin I.cardiac DL <= 0.01 ng/mL [Mass/Vol] 141 ng/L High 0 - 54 ng/L ADM Comment on above: Interpretive Data: High Sensitive Troponin I Reference Ranges: Female: 0-34 ng/L Male: 0-54 ng/L Testing performed on [employer] IM analyzer using direct chemiluminescent technology. LABORATORYOrdered By: Bhakti Lanier on 04-13-2025 M. pneumoniae IgG IA Ql (S) Positive 28 *NA* (04/13/25 7:20 AM) Invalid Interpretation Code Auto [facility] Comment on above: Interpretive Data: I NTERPRETATION OF MYCOPLASMA IgG BY EIA: Negative: No detectable M. pneumoniae IgG antibody. Positive: Mycoplasma pneumoniae IgG antibody Detected. Equivocal: Equivocal for IgG antibodies to Mycoplasma pneumoniae. Suggest repeat testing in 10-14 days. M. pneumoniae IgM IA Ql (S) Negative 27 (04/13/25 7:20 AM) Normal [facility] SS Comment on above: Interpretive Data: I NTERPRETATION OF MYCOPLASMA IgM: Negative: IgM to M. pneumoniae Absent, or at levels below the assay limit of detection. Positive: IgM to M. pneumoniae Present. Invalid: Test results are invalid due to invalid internal control. Assay was performed in duplicate. Repeat testing is suggested if clinically indicated. LACon 04-13-2025 Lactic Acid Lvl 1.2 mmol/L Normal 0.5-2.2 [facility] Comment on above: Performed By: #### C MP, ADIFF, CBC, TROPHS, ANEU, LAC, MYCO, MG, GFR, PRO, PBNP #### [place] [address] MGon 04-13-2025 Magnesium [Mass/Vol] 2.2 mg/dL Normal 1.6-2.[address] [facility] MA[facility] Comment on above: Performed By: #### C MP, ADIFF, CBC, TROPHS, ANEU, LAC, MYCO, MG, GFR, PRO, PBNP #### [place] [address] MYCOon 04-13-2025 Mycoplasma IgG Positive [facility] MAIN Comment on above: Result Comment: INTE RPRETATION OF MYCOPLASMA IgG BY EIA: Negative: No detectable M. pneumoniae IgG antibody. Positive: Mycoplasma pneumoniae IgG antibody Detected. Equivocal: Equivocal for IgG antibodies to Mycoplasma pneumoniae. Suggest repeat testing in 10-14 days. Performed By: #### C MP, ADIFF, CBC, TROPHS, ANEU, LAC, MYCO, MG, GFR, PRO, PBNP #### [place] [address] Mycoplasma IgM Negative [facility] MAIN Comment on above: Result Comment: INTE RPRETATION OF MYCOPLASMA IgM: Negative: IgM to M. pneumoniae Absent, or at levels below the assay limit of detection. Positive: IgM to M. pneumoniae Present. Invalid: Test results are invalid due to invalid internal control. Assay was performed in duplicate. Repeat testing is suggested if clinically indicated. Performed By: #### C MP, ADIFF, CBC, TROPHS, ANEU, LAC, MYCO, MG, GFR, PRO, PBNP #### [place] [id number] [place] [id number] No Panel Informationon 04-13 Microscopic examination of blood, culture Culture has been received in lab and is no growth to date. Routine cultures are held for 5 days. [facility] Work Phone: PBNPon 04-13-2025 Natriuretic peptide B (Bld) [Mass/Vol] 6315 pg/mL High 0-1800 [facility] Comment on above: Performed By: #### C MP, ADIFF, CBC, TROPHS, ANEU, LAC, MYCO, MG, GFR, PRO, PBNP #### [facility] [address] [place] [id number] PROon 04-13-2025 INR Coag (PPP) [Relative time] 1.3 {INR} Normal [facility] Comment on above: Result Comment: [employer] (CHEST, 1992, 102:312S-25S) recommended therapeutic range for oral anticoagulant therapy is: LOW RISK: Prophylaxis of venous thrombosis INR: 2.0-3.0 Treatment of pulmonary embolism 2.0-3.0 Prevention of systemic embolism 2.0-3.0 HIGH RISK: Mechanical prosthetic valves 2.5-3.5 Performed By: #### C MP, ADIFF, CBC, TROPHS, ANEU, LAC, MYCO, MG, GFR, PRO, PBNP #### [facility] [address] [place] [address] PT Coag (PPP) [Time] 14.5 s High 9.0-14.[address] [facility] MAIN Comment on above: Result Comment: Effe ctive 03/03/08, Protime results may be affected by some antibiotics (i.e. Ciprofloxacin, Azithromycin, Bactrim) which may potentiate the action of oral anticoagulants, with further increases in Protime/INR. Performed By: #### C MP, ADIFF, CBC, TROPHS, ANEU, LAC, MYCO, MG, GFR, PRO, PBNP #### [facility] [address] [place] [address] TROPHSon 04-13-2025 High Sensitivity Troponin I 174 ng/L High 0-54 [facility] Comment on above: Result Comment: High Sensitive Troponin I Reference Ranges: Female: 0-34 ng/L Male: 0-54 ng/L Testing performed on [employer] IM analyzer using direct chemiluminescent technology. Performed By: #### C MP, ADIFF, CBC, TROPHS, ANEU, LAC, MYCO, MG, GFR, PRO, PBNP #### [address] [address] High Sensitivity Troponin I 141 ng/L High 0-54 [facility] Comment on above: Result Comment: High Sensitive Troponin I Reference Ranges: Female: 0-34 ng/L Male: 0-54 ng/L Testing performed on [employer] IM analyzer using direct chemiluminescent technology. Performed By: #### C MP, ADIFF, CBC, TROPHS, ANEU, LAC, MYCO, MG, GFR, PRO, PBNP #### [place] [id number] XR CHEST 1 VIEWon 04-13-2025 XR CHEST 1 VIEW ORIGINAL EXAMINATION: ONE XRAY VIEW OF THE [...] with adjacent hazy airspace disease. Interpreted by: Mónica Zaldivar Preliminary Report By: Mónica Zaldivar Electronically signed By Mónica Zaldivar Dictated Date: 04/13/2025 2:55:34 PM Prelim Date: 04/13/2025 2:58:50 PM Sign Date: 04/13/2025 2:58:50 PM Ordering Provider: COLLEEN DOE Normal [facility] 12 Lead EKGon 04-12-2025 12 Lead EKG Normal [facility] Absolute lymphocyte countOrd ered By: Daniel Brownlee on 04-12-2025 Lymphocytes Auto (Unsp spec) [#/Vol] 0.34 10*3/uL Low 0.83-4.51 [facility] Anion gap in Serum or Plasma Ordered By: Daniel Brownlee on 04-12-2025 Anion gap [Moles/Vol] 9 mmol/L 5-15 [facility] Automated lymphocyte count a s percentage of total leukocytesOrdered By: Daniel Brownlee on 04-12-2025 Lymphocytes/100 WBC Auto (Unsp spec) 2.5 % Low 19-41 [facility] BUN/creatinine ratioOrdered By: Daniel Brownlee on 04-12-2025 Urea nitrogen/Creatinine [Mass ratio] 41.9 mg/mg High 10-20 [facility] Basic Metabolic Profile (BMP )on 04-12-2025 BUN/CRE 41.9 RATIO High 10-20 [facility] Comment on above: Performed By: #### L 503.7505, L500.2500 ####[facility] [address] [place], [address] Calcium [Mass/Vol] 8.7 mg/dL Normal 7.6-11.0 [facility] Comment on above: Performed By: #### L 503.7505, L500.2500 ####[facility] [address] [place], [address] Chloride [Moles/Vol] 93 mmol/L Low 98-108 [facility] Comment on above: Performed By: #### L 503.7505, L500.2500 ####[facility] [address] [place], [address] CO2 [Moles/Vol] 36.5 mmol/L High 21.0-32.0 [facility] Comment on above: Performed By: #### L 503.7505, L500.2500 ####[facility] [address] [place], [address] Creatinine [Mass/Vol] 1.43 mg/dL High 0.70-1.20 [facility] Comment on above: Performed By: #### L 503.7505, L500.2500 ####[facility] [address] [place], [address] ECRCL 37.18 ml/min Low 50-250 [facility] Comment on above: Performed By: #### L 503.7505, L500.2500 ####[facility] [address] [place], [address] GAP 9 Normal 5-15 [facility] Comment on above: Performed By: #### L 503.7505, L500.2500 ####[facility] [address] [place], [address] GFR/1.73 sq M.predicted among non-blacks MDRD (S/P/Bld) [Vol rate/Area] 50 mL/min/{1.73_m2} Low >60 [facility] Comment on above: Result Comment: mL/m in/1.73m2 CKD-EPI Creatinine Equation (2020) Performed By: #### L 503.7505, L500.2500 ####[facility] [address] [place], [address] Glucose [Mass/Vol] 189 mg/dL High 70-99 [facility] Comment on above: Performed By: #### L 503.7505, L500.2500 ####[facility] [address] [place], [address] Potassium [Moles/Vol] 4.3 mmol/L Normal 3.3-5.1 [facility] Comment on above: Performed By: #### L 503.7505, L500.2500 ####[facility] [address] [place], [address] Sodium [Moles/Vol] 138 mmol/L Normal 133-145 [facility] Comment on above: Performed By: #### L 503.7505, L500.2500 ####[facility] [address] [place], [address] Urea nitrogen [Mass/Vol] 60 mg/dL High 4-19 [facility] Comment on above: Performed By: #### L 503.7505, L500.2500 ####[facility] [address] [place], [address] Basophil percentageOrdered B y: Daniel Brownlee on 04-12-2025 Basophils/100 WBC (Bld) 0.1 % 0-1 [facility] Bedside Glucoseon 04-12-2025 FINGERSTICK GLU 143 mg/dL High 74-106 [facility] Comment on above: Result Comment: KODY GEMENT OF PATIENT CARE PER NURSING PROTOCOL Performed By: #### L 501.080 ####[facility] [address] [place], [address] FINGERSTICK GLU 222 mg/dL High 74-106 [facility] Comment on above: Result Comment: KODY GEMENT OF PATIENT CARE PER NURSING PROTOCOL Performed By: #### L 501.080 ####[facility] [address] [place], [address] FINGERSTICK GLU 222 mg/dL High 74-106 [facility] Comment on above: Result Comment: KODY GEMENT OF PATIENT CARE PER NURSING PROTOCOL Performed By: #### L 501.080 ####[facility] [address] [place], [address] Body Fluid Culton 04-12-2025 BFC Culture exhibits no growth. Normal [facility] Comment on above: Performed By: #### M 100.4001, L350.1000, L200.0200, M100.2900, M100.2000 ####[facility] [address] [place], [address] CBC W/Diff, Automatedon 08-2 -2024 Absolute Lymph 0.34 X10 3/uL Low 0.83-4.51 [facility] Comment on above: Performed By: #### L 100.0100, L501.4021 ####[facility] [address] [place], [address] Absolute Neut 12.7 X10 3/uL High 2.0-7.7 [facility] Comment on above: Performed By: #### L 100.0100, L501.4021 ####[facility] [address] [place], [address] Basophils/100 WBC (Bld) 0.1 % Normal 0-1 [facility] Comment on above: Performed By: #### L 100.0100, L501.4021 ####[facility] [address] [place], [address] Eosinophils/100 WBC (Bld) 0.0 % Normal 0-5 [facility] Comment on above: Performed By: #### L 100.0100, L501.4021 ####[facility] [address] [place], [address] Erythrocyte distribution width (RBC) [Ratio] 16.6 % High 11.6-14.6 [facility] Comment on above: Performed By: #### L 100.0100, L501.4021 ####[facility] [address] [place], [address] Hematocrit (Bld) [Volume fraction] 29.6 % Low 40-54 [facility] Comment on above: Performed By: #### L 100.0100, L501.4021 ####[facility] [address] [place], [address] Hemoglobin (Bld) [Mass/Vol] 9.1 g/dL Low 13.0-16.5 [facility] Comment on above: Performed By: #### L 100.0100, L501.4021 ####[facility] [address] [place], [address] IG% 0.700 Normal 0.0-0.9 [facility] Comment on above: Result Comment: IG% - Immature Granulocytes (promyelocytes, myelocytes andmetamyelocytes) > 1% indicates that a LEFT SHIFT is Present. Performed By: #### L 100.0100, L501.4021 ####[facility] [address] [place], [address] Lymphocytes/100 WBC (Bld) 2.5 % Low 19-41 [facility] Comment on above: Performed By: #### L 100.0100, L501.4021 ####[facility] [address] [place], [address] MCH (RBC) [Entitic mass] 27.2 pg Normal 27.0-32.0 [facility] Comment on above: Performed By: #### L 100.0100, L501.4021 ####[facility] [address] [place], [address] MCHC (RBC) [Mass/Vol] 30.7 g/dL Low 32-36 [facility] Comment on above: Performed By: #### L 100.0100, L501.4021 ####[facility] [address] [place], [address] MCV (RBC) [Entitic vol] 88.4 fL Normal 80-94 [facility] Comment on above: Performed By: #### L 100.0100, L501.4021 ####[facility] [address] [place], [address] Monocytes/100 WBC (Bld) 4.2 % Normal 0-10 [facility] Comment on above: Performed By: #### L 100.0100, L501.4021 ####[facility] [address] [place], [address] Neutrophils/100 WBC (Bld) 92.5 % High 47-70 [facility] Comment on above: Performed By: #### L 100.0100, L501.4021 ####[facility] [address] [place], [address] Nucleated RBC (Bld) [#/Vol] 0 10*3/uL Normal 0-5 [facility] Comment on above: Performed By: #### L 100.0100, L501.4021 ####[facility] [address] [place], [address] Platelet mean volume (Bld) [Entitic vol] 9.9 fL Normal 6.2-12.0 [facility] Comment on above: Performed By: #### L 100.0100, L501.4021 ####[facility] [address] [place], [address] Platelets (Bld) [#/Vol] 193 10*3/uL Normal 150-450 [facility] Comment on above: Performed By: #### L 100.0100, L501.4021 ####[facility] [address] [place], [address] RBC (Bld) [#/Vol] 3.35 10*6/uL Low 4.6-6.2 [facility] Comment on above: Performed By: #### L 100.0100, L501.4021 ####[facility] [address] [place], [address] RDW SD 53.6 fl High 35.1-43.9 [facility] Comment on above: Performed By: #### L 100.0100, L501.4021 ####[facility] [address] [place], [address] WBC (Bld) [#/Vol] 13.7 10*3/uL High 4.4-11.0 [facility] Comment on above: Performed By: #### L 100.0100, L501.4021 ####[facility] [address] [place], [place], [address] Carbon dioxide, total [Moles /volume] in Central venous bloodOrdered By: Daniel Brownlee on 04-12-2025 CO2 [Moles/Vol] 36.5 mmol/L High 21.0-32.0 [facility] Chest PA and Lateralon 04-12 Chest PA and Lateral Normal [facility] Chest without Contraston Chest without Contrast Normal [facility] Chloride assayOrdered By: Kimo Brownlee on 04-12-2025 Chloride [Moles/Vol] 93 mmol/L Low 98-108 [facility] Culture, Anaerobic Any Sourc talat 04-12-2025 CUAN No anaerobic bacteri a isolated. Normal [facility] Comment on above: Performed By: #### M 100.4001, L350.1000, L200.0200, M100.2900, M100.2000 ####[facility] [address] [place], [place], [address] Emergency Department Summary on 04-12-2025 Emergency Department Summary Normal [facility] Eosinophil percentageOrdered By: Daniel Brownlee on 04-12-2025 Eosinophils/100 WBC (Bld) 0.0 % 0-5 [facility] Erythrocyte distribution wid th ratioOrdered By: Daniel Brownlee on 04-12-2025 Erythrocyte distribution width (RBC) [Ratio] 16.6 % High 11.6-14.6 [facility] Erythrocyte distribution wid th standard deviationOrdered By: Daniel Brownlee on 04-12-2025 Erythrocyte distribution width (RBC) [Ratio] 53.6 fl High 35.1-43.9 [facility] Glomerular filtration rate ( GFR) estimation/1.73 sq m using serum, plasma, or whole bOrdered By: Daniel Brownlee on 04-12-2025 GFR/1.73 sq M.predicted among non-blacks MDRD (S/P/Bld) [Vol rate/Area] 50 mL/min/{1.73_m2} Low >60 [facility] Glucose measurement at [facility] deOrdered By: Valdez Geovani on 04-12-2025 Glucose [Mass/Vol] 143 mg/dL High 74-106 [facility] Hematocrit Auto (Bld) [Volum e fraction]Ordered By: Daniel Brownlee on 04-12-2025 Hematocrit (Bld) [Volume fraction] 29.6 % Low 40-54 [facility] Hemoglobin measurementOrdere d By: Daniel Brownlee on 04-12-2025 Hemoglobin (Bld) [Mass/Vol] 9.1 g/dL Low 13.0-16.5 [facility] Immature granulocytes/100 WB C Auto (Bld)Ordered By: Daniel Brownlee on 04-12-2025 Immature granulocytes/100 WBC (Bld) 0.700 % 0.0-0.9 [facility] L501.4021on 04-12-2025 Trop T High Sen 103 ng/L Invalid Interpretation Code <=22 [facility] Comment on above: Result Comment: Crit ical Result(s) Called ACOLE2 at: 2036 by:RIVERA??Results read back by same. Performed By: #### L 100.0100, L501.4021 ####[facility] [address] [place], [address] MCV (mean corpuscular volume ) determinationOrdered By: Daniel Brownlee on 04-12-2025 MCV (RBC) [Entitic vol] 88.4 fL 80-94 [facility] Mean corpuscular hemoglobin (MCH) determinationOrdered By: Daniel Brownlee on 04-12-2025 MCH (RBC) [Entitic mass] 27.2 pg 27.0-32.0 [facility] Monocyte percentageOrdered B y: Daniel Brownlee on 04-12-2025 Monocytes/100 WBC (Bld) 4.2 % 0-10 [facility] Natriuretic peptide.B prohor girish N-Terminal [Mass/volume] in Serum or PlasmaOrdered By: Daniel Brownlee on 04-12-2025 Natriuretic peptide.B prohormone N-Terminal [Mass/Vol] 7022 pg/mL High <1800 [facility] Neutrophil percentageOrdered By: Daniel Brownlee on 04-12-2025 Neutrophils/100 WBC (Bld) 92.5 % High 47-70 [facility] Platelet countOrdered By: Kimo Brownlee on 04-12-2025 Platelets (Bld) [#/Vol] 193 10*3/uL 150-450 [facility] Potassium measurement (mass/ volume)Ordered By: Daniel Brownlee on 04-12-2025 Potassium (Unsp spec) [Mass/Vol] 4.3 mmol/L 3.3-5.1 [facility] Pro- Brain NATRIURETIC PEPTI Adrienne 04-12-2025 Natriuretic peptide B (Bld) [Mass/Vol] 7022 pg/mL High <=1800 [facility] Comment on above: Result Comment: Hear t Failure Unlikely: < 300 pg/mLHeart Failure Likely< 50 Years: > 450 pg/mL50-75 Years: > 900 pg/mL>75 Years: > 1800 pg/mL Performed By: #### L 503.7505, L500.2500 ####[facility] [address] [facility] [place], [place], [id number] RBC Auto (Bld) [#/Vol]Ordere d By: Daniel Brownlee on 04-12-2025 RBC (Bld) [#/Vol] 3.35 10*6/uL Low 4.6-6.2 [facility] Serum creatinine measurement (mass/volume)Ordered By: Daniel Brownlee on 04-12-2025 Creatinine [Mass/Vol] 1.43 mg/dL High 0.70-1.20 [facility] Serum glucose measurement (m ass/volume)Ordered By: Daniel Brownlee on 04-12-2025 Glucose [Mass/Vol] 189 mg/dL High 70-99 [facility] Serum or plasma calcium [place] urement (mass/volume)Ordered By: Daniel Brownlee on 04-12-2025 Calcium [Mass/Vol] 8.7 mg/dL 7.6-11.0 [facility] Serum or plasma urea nitroge n measurement (mass/volume)Ordered By: Daniel Brownlee on 04-12-2025 Urea nitrogen [Mass/Vol] 60 mg/dL High 4-19 [facility] Sodium levelOrdered By: Mickie Brownlee on 04-12-2025 Sodium [Moles/Vol] 138 mmol/L 133-145 [facility] Troponin T HS 2 HRon 025 Trop T High Sen 98 ng/L Invalid Interpretation Code <=22 [facility] Comment on above: Result Comment: Crit ical Result(s) Called [facility] at: 2234 by:RIVERA??Results read back by same. Performed By: #### L 499.0042 ####[facility] [address] [place], [place], [address] Troponin T HS 4 HRon 025 Trop T High Sen Normal <=22 [facility] Comment on above: Result Comment: RAMÓN ENT DISCHARGED Performed By: #### L 499.0043 ####[facility] [address] [place], [place], [address] Troponin T.cardiac [Mass/vol ume] in Serum or Plasma by High sensitivity methodOrdered By: Daniel Brownlee on 04-12-2025 Troponin T.cardiac High sensitivity method [Mass/Vol] 98 ng/L High <22 [facility] Troponin T.cardiac High sensitivity method [Mass/Vol] 103 ng/L High <22 [facility] White blood cell (WBC) count Ordered By: Daniel Brownlee on 04-12-2025 WBC (Bld) [#/Vol] 13.7 10*3/uL High 4.4-11.0 [facility] Absolute lymphocyte countOrd ered By: Valdez Olivo on 04-11-2025 Lymphocytes Auto (Unsp spec) [#/Vol] 0.34 10*3/uL Low 0.83-4.51 [facility] Anion gap in Serum or Plasma Ordered By: Valdez Olivo on 04-11-2025 Anion gap [Moles/Vol] 10 mmol/L 5-15 [facility] Automated lymphocyte count a s percentage of total leukocytesOrdered By: Valdez Olivo on 04-11-2025 Lymphocytes/100 WBC Auto (Unsp spec) 3.3 % Low 19-41 [facility] BUN/creatinine ratioOrdered By: Valdez Olivo on 04-11-2025 Urea nitrogen/Creatinine [Mass ratio] 42.1 mg/mg High 10-20 [facility] Basic Metabolic Profile (BMP )on 04-11-2025 BUN/CRE 42.1 RATIO High 10-20 [facility] Comment on above: Performed By: #### L 500.2500, L100.0100 ####[facility] [address] [place], [address] Calcium [Mass/Vol] 8.6 mg/dL Normal 7.6-11.0 [facility] Comment on above: Performed By: #### L 500.2500, L100.0100 ####[facility] [address] [place], [address] Chloride [Moles/Vol] 94 mmol/L Low 98-108 [facility] Comment on above: Performed By: #### L 500.2500, L100.0100 ####[facility] [address] [place], [address] CO2 [Moles/Vol] 33.4 mmol/L High 21.0-32.0 [facility] Comment on above: Performed By: #### L 500.2500, L100.0100 ####[facility] [address] [place], [address] Creatinine [Mass/Vol] 1.62 mg/dL High 0.70-1.20 [facility] Comment on above: Performed By: #### L 500.2500, L100.0100 ####[facility] [address] [place], [address] ECRCL 32.82 ml/min Low 50-250 [facility] Comment on above: Performed By: #### L 500.2500, L100.0100 ####[facility] [address] [place], [address] GAP 10 Normal 5-15 [facility] Comment on above: Performed By: #### L 500.2500, L100.0100 ####[facility] [address] [place], [address] GFR/1.73 sq M.predicted among non-blacks MDRD (S/P/Bld) [Vol rate/Area] 43 mL/min/{1.73_m2} Low >60 [facility] Comment on above: Result Comment: mL/m in/1.73m2 CKD-EPI Creatinine Equation (2020) Performed By: #### L 500.2500, L100.0100 ####[facility] [address] [place], [address] Glucose [Mass/Vol] 176 mg/dL High 70-99 [facility] Comment on above: Performed By: #### L 500.2500, L100.0100 ####[facility] [address] [place], [address] Potassium [Moles/Vol] 4.1 mmol/L Normal 3.3-5.1 [facility] Comment on above: Performed By: #### L 500.2500, L100.0100 ####[facility] [address] [place], [address] Sodium [Moles/Vol] 138 mmol/L Normal 133-145 [facility] Comment on above: Performed By: #### L 500.2500, L100.0100 ####[facility] [address] [place], [address] Urea nitrogen [Mass/Vol] 68 mg/dL High 4-19 [facility] Comment on above: Performed By: #### L 500.2500, L100.0100 ####[facility] [address] [place], [address] BUN Normal 4-19 [facility] Comment on above: Result Comment: Canc elled via OM: Order cancelled - Patient discharged Performed By: #### L 500.2500, L100.0100 ####[facility] [address] [place], [address] BUN/CRE Normal 10-20 [facility] Comment on above: Result Comment: Canc elled via OM: Order cancelled - Patient discharged Performed By: #### L 500.2500, L100.0100 ####[facility] [address] [place], [address] Calcium Normal 7.6-11.0 [facility] Comment on above: Result Comment: Canc elled via OM: Order cancelled - Patient discharged Performed By: #### L 500.2500, L100.0100 ####[facility] [address] [place], [address] CL Normal 98-108 [facility] Comment on above: Result Comment: Canc elled via OM: Order cancelled - Patient discharged Performed By: #### L 500.2500, L100.0100 ####[facility] [address] [place], [address] CO2 Normal 21.0-32.0 [facility] Comment on above: Result Comment: Canc elled via OM: Order cancelled - Patient discharged Performed By: #### L 500.2500, L100.0100 ####[facility] [address] [place], [address] CREAT,SERUM Normal 0.70-1.20 [facility] Comment on above: Result Comment: Canc elled via OM: Order cancelled - Patient discharged Performed By: #### L 500.2500, L100.0100 ####[facility] [address] [place], [address] eGFR Normal >60 [facility] Comment on above: Result Comment: Canc elled via OM: Order cancelled - Patient discharged Performed By: #### L 500.2500, L100.0100 ####[facility] [address] [place], [address] GAP Normal 5-15 [facility] Comment on above: Result Comment: Canc elled via OM: Order cancelled - Patient discharged Performed By: #### L 500.2500, L100.0100 ####[facility] [address] [place], [address] GLU Normal 70-99 [facility] Comment on above: Result Comment: Canc elled via OM: Order cancelled - Patient discharged Performed By: #### L 500.2500, L100.0100 ####[facility] [address] [place], [address] Potassium Normal 3.3-5.1 [facility] Comment on above: Result Comment: Canc elled via OM: Order cancelled - Patient discharged Performed By: #### L 500.2500, L100.0100 ####[facility] [address] [place], [address] Basic Metabolic Profile (BMP) Normal 133-145 [facility] Comment on above: Result Comment: Canc elled via OM: Order cancelled - Patient discharged Performed By: #### L 500.2500, L100.0100 ####[facility] [address] [place], [address] Basophil percentageOrdered B y: Valdez Olivo on 04-11-2025 Basophils/100 WBC (Bld) 0.1 % 0-1 [facility] Bedside Glucoseon 04-11-2025 FINGERSTICK GLU 323 mg/dL High 74-106 [facility] Comment on above: Result Comment: KODY STRONG OF PATIENT CARE PER NURSING PROTOCOL Performed By: #### L 501.080 ####[facility] [address] [place], [address] FINGERSTICK GLU 166 mg/dL High 74-106 [facility] Comment on above: Result Comment: KODY GEMENT OF PATIENT CARE PER NURSING PROTOCOL Performed By: #### L 501.080 ####[facility] [address] [place], [address] FINGERSTICK GLU 273 mg/dL High 74-106 [facility] Comment on above: Result Comment: KODY GEMENT OF PATIENT CARE PER NURSING PROTOCOL Performed By: #### L 501.080 ####[facility] [address] [place], [address] CBC W/Diff, Automatedon 08-2 -2024 Absolute Lymph 0.34 X10 3/uL Low 0.83-4.51 [facility] Comment on above: Performed By: #### L 500.2500, L100.0100 ####[facility] [address] [place], [address] Absolute Neut 9.0 X10 3/uL High 2.0-7.7 [facility] Comment on above: Performed By: #### L 500.2500, L100.0100 ####[facility] [address] [place], [address] Basophils/100 WBC (Bld) 0.1 % Normal 0-1 [facility] Comment on above: Performed By: #### L 500.2500, L100.0100 ####[facility] [address] [place], [address] Eosinophils/100 WBC (Bld) 0.0 % Normal 0-5 [facility] Comment on above: Performed By: #### L 500.2500, L100.0100 ####[facility] [address] [place], [address] Erythrocyte distribution width (RBC) [Ratio] 16.6 % High 11.6-14.6 [facility] Comment on above: Performed By: #### L 500.2500, L100.0100 ####[facility] [address] [place], [address] Hematocrit (Bld) [Volume fraction] 28.4 % Low 40-54 [facility] Comment on above: Performed By: #### L 500.2500, L100.0100 ####[facility] [address] [place], [address] Hemoglobin (Bld) [Mass/Vol] 8.7 g/dL Low 13.0-16.5 [facility] Comment on above: Performed By: #### L 500.2500, L100.0100 ####[facility] [address] [place], [address] IG% 0.600 Normal 0.0-0.9 [facility] Comment on above: Result Comment: IG% - Immature Granulocytes (promyelocytes, myelocytes andmetamyelocytes) > 1% indicates that a LEFT SHIFT is Present. Performed By: #### L 500.2500, L100.0100 ####[facility] [address] [place], [address] Lymphocytes/100 WBC (Bld) 3.3 % Low 19-41 [facility] Comment on above: Performed By: #### L 500.2500, L100.0100 ####[facility] [address] [place], [address] MCH (RBC) [Entitic mass] 26.7 pg Low 27.0-32.0 [facility] Comment on above: Performed By: #### L 500.2500, L100.0100 ####[facility] [address] [place], [address] MCHC (RBC) [Mass/Vol] 30.6 g/dL Low 32-36 [facility] Comment on above: Performed By: #### L 500.2500, L100.0100 ####[facility] [address] [place], [address] MCV (RBC) [Entitic vol] 87.1 fL Normal 80-94 [facility] Comment on above: Performed By: #### L 500.2500, L100.0100 ####[facility] [address] [place], [address] Monocytes/100 WBC (Bld) 8.7 % Normal 0-10 [facility] Comment on above: Performed By: #### L 500.2500, L100.0100 ####[facility] [address] [place], [address] Neutrophils/100 WBC (Bld) 87.3 % High 47-70 [facility] Comment on above: Performed By: #### L 500.2500, L100.0100 ####[facility] [address] [place], [address] Nucleated RBC (Bld) [#/Vol] 0 10*3/uL Normal 0-5 [facility] Comment on above: Performed By: #### L 500.2500, L100.0100 ####[facility] [address] [place], [address] Platelet mean volume (Bld) [Entitic vol] 10.2 fL Normal 6.2-12.0 [facility] Comment on above: Performed By: #### L 500.2500, L100.0100 ####[facility] [address] [place], [address] Platelets (Bld) [#/Vol] 186 10*3/uL Normal 150-450 [facility] Comment on above: Performed By: #### L 500.2500, L100.0100 ####[facility] [address] [place], [address] RBC (Bld) [#/Vol] 3.26 10*6/uL Low 4.6-6.2 [facility] Comment on above: Performed By: #### L 500.2500, L100.0100 ####[facility] [address] [place], [address] RDW SD 52.9 fl High 35.1-43.9 [facility] Comment on above: Performed By: #### L 500.2500, L100.0100 ####[facility] [address] [place], [address] WBC (Bld) [#/Vol] 10.3 10*3/uL Normal 4.4-11.0 [facility] Comment on above: Performed By: #### L 500.2500, L100.0100 ####[facility] [address] [place], [address] Absolute Neut Normal 2.0-7.7 [facility] Comment on above: Result Comment: Canc elled via OM: Order cancelled - Patient discharged Performed By: #### L 500.2500, L100.0100 ####[facility] [address] [place], [address] HCT Normal 40-54 [facility] Comment on above: Result Comment: Canc elled via OM: Order cancelled - Patient discharged Performed By: #### L 500.2500, L100.0100 ####[facility] [address] [place], [address] HGB Normal 13.0-16.5 [facility] Comment on above: Result Comment: Canc elled via OM: Order cancelled - Patient discharged Performed By: #### L 500.2500, L100.0100 ####[facility] [address] [place], [address] MCH Normal 27.0-32.0 [facility] Comment on above: Result Comment: Canc elled via OM: Order cancelled - Patient discharged Performed By: #### L 500.2500, L100.0100 ####[facility] [address] [place], [address] MCHC Normal 32-36 [facility] Comment on above: Result Comment: Canc elled via OM: Order cancelled - Patient discharged Performed By: #### L 500.2500, L100.0100 ####[facility] [address] [place], [address] MCV Normal 80-94 [facility] Comment on above: Result Comment: Canc elled via OM: Order cancelled - Patient discharged Performed By: #### L 500.2500, L100.0100 ####[facility] [address] [place], [address] NEUT% Normal 47-70 [facility] Comment on above: Result Comment: Canc elled via OM: Order cancelled - Patient discharged Performed By: #### L 500.2500, L100.0100 ####[facility] [address] [place], [address] PLT Normal 150-450 [facility] Comment on above: Result Comment: Canc elled via OM: Order cancelled - Patient discharged Performed By: #### L 500.2500, L100.0100 ####[facility] [address] [place], [address] RBC Normal 4.6-6.2 [facility] Comment on above: Result Comment: Canc elled via OM: Order cancelled - Patient discharged Performed By: #### L 500.2500, L100.0100 ####[facility] [address] [place], [address] RDW CV Normal 11.6-14.6 [facility] Comment on above: Result Comment: Canc elled via OM: Order cancelled - Patient discharged Performed By: #### L 500.2500, L100.0100 ####[facility] [address] [place], [address] RDW SD Normal 35.1-43.9 [facility] Comment on above: Result Comment: Canc elled via OM: Order cancelled - Patient discharged Performed By: #### L 500.2500, L100.0100 ####[facility] [address] [place], [address] WBC Normal 4.4-11.0 [facility] Comment on above: Result Comment: Canc elled via OM: Order cancelled - Patient discharged Performed By: #### L 500.2500, L100.0100 ####[facility] [address] [place], [address] COVID 19 AG RAPID (KHURRAM Becerril)on 04-11-2025 SARS-CoV-2 (COVID-19) RNA BRYAN+probe Ql (Unsp spec) Normal [facility] Comment on above: Performed By: #### M 100.505 ####[facility] [address] [place], [address] COVID-19 virus antigen assay Ordered By: Valdez Olivo on 04-11-2025 SARS-CoV-2 (COVID-19) Ag IA.rapid Ql (Resp) [facility] Carbon dioxide, total [Moles /volume] in Central venous bloodOrdered By: Valdez Olivo on 04-11-2025 CO2 [Moles/Vol] 33.4 mmol/L High 21.0-32.0 [facility] Chloride assayOrdered By: Aiden Olivo on 04-11-2025 Chloride [Moles/Vol] 94 mmol/L Low 98-108 [facility] Eosinophil percentageOrdered By: Valdez Olivo on 04-11-2025 Eosinophils/100 WBC (Bld) 0.0 % 0-5 [facility] Erythrocyte distribution wid th ratioOrdered By: Valdez Olivo on 04-11-2025 Erythrocyte distribution width (RBC) [Ratio] 16.6 % High 11.6-14.6 [facility] Erythrocyte distribution wid th standard deviationOrdered By: Valdez Olivo on 04-11-2025 Erythrocyte distribution width (RBC) [Ratio] 52.9 fl High 35.1-43.9 [facility] Glomerular filtration rate ( GFR) estimation/1.73 sq m using serum, plasma, or whole bOrdered By: Valdez Olivo on 04-11-2025 GFR/1.73 sq M.predicted among non-blacks MDRD (S/P/Bld) [Vol rate/Area] 43 mL/min/{1.73_m2} Low >60 [facility] Gram Stainon 04-11-2025 GS Centrifuged Specimen ? Culture performed on centrifuged specimen Gram Stain 1+ White Blood Cells No organisms seen Normal [facility] Comment on above: Performed By: #### M 100.4001, L350.1000, L200.0200, M100.2900, M100.2000 ####[facility] [address] [place], [place], [id number] Hematocrit Auto (Bld) [Volum e fraction]Ordered By: Valdez Olivo on 04-11-2025 Hematocrit (Bld) [Volume fraction] 28.4 % Low 40-54 [facility] Hemoglobin measurementOrdere d By: Valdez Olivo on 04-11-2025 Hemoglobin (Bld) [Mass/Vol] 8.7 g/dL Low 13.0-16.5 [facility] Immature granulocytes/100 WB C Auto (Bld)Ordered By: Valdez Olivo on 04-11-2025 Immature granulocytes/100 WBC (Bld) 0.600 % 0.0-0.9 [facility] MCV (mean corpuscular volume ) determinationOrdered By: Valdez Olivo on 04-11-2025 MCV (RBC) [Entitic vol] 87.1 fL 80-94 [facility] Mean corpuscular hemoglobin (MCH) determinationOrdered By: Valdez Olivo on 04-11-2025 MCH (RBC) [Entitic mass] 26.7 pg Low 27.0-32.0 [facility] Monocyte percentageOrdered B y: Valdez Olivo on 04-11-2025 Monocytes/100 WBC (Bld) 8.7 % 0-10 [facility] Neutrophil percentageOrdered By: Valdez Olivo on 04-11-2025 Neutrophils/100 WBC (Bld) 87.3 % High 47-70 [facility] Platelet countOrdered By: Aiden Olivo on 04-11-2025 Platelets (Bld) [#/Vol] 186 10*3/uL 150-450 [facility] Potassium measurement (mass/ volume)Ordered By: Valdez Olivo on 04-11-2025 Potassium (Unsp spec) [Mass/Vol] 4.1 mmol/L 3.3-5.1 [facility] RBC Auto (Bld) [#/Vol]Ordere d By: Valdez Olivo on 04-11-2025 RBC (Bld) [#/Vol] 3.26 10*6/uL Low 4.6-6.2 [facility] Serum creatinine measurement (mass/volume)Ordered By: Valdez Olivo on 04-11-2025 Creatinine [Mass/Vol] 1.62 mg/dL High 0.70-1.20 [facility] Serum glucose measurement (m ass/volume)Ordered By: Valdez Olivo on 04-11-2025 Glucose [Mass/Vol] 176 mg/dL High 70-99 [facility] Serum or plasma calcium [place] urement (mass/volume)Ordered By: Valdez Olivo on 04-11-2025 Calcium [Mass/Vol] 8.6 mg/dL 7.6-11.0 [facility] Serum or plasma urea nitroge n measurement (mass/volume)Ordered By: Valdez Olivo on 04-11-2025 Urea nitrogen [Mass/Vol] 68 mg/dL High 4-19 [facility] Sodium levelOrdered By: Valdez Olivo on 04-11-2025 Sodium [Moles/Vol] 138 mmol/L 133-145 [facility] White blood cell (WBC) count Ordered By: Valdez Olivo on 04-11-2025 WBC (Bld) [#/Vol] 10.3 10*3/uL 4.4-11.0 [facility] Absolute lymphocyte countOrd ered By: Nicola Roman on 04-10-2025 Lymphocytes Auto (Unsp spec) [#/Vol] 0.17 10*3/uL Low 0.83-4.51 [facility] Activated partial thrombopla stin time (aPTT) in platelet poor plasma by coagulation aOrdered By: Nicola Marroquin on 04-10-2025 aPTT Coag (PPP) [Time] 29.5 s 24.1-36.[address] [facility] Anaerobic cultureOrdered By: Nicola Roman on 04-10-2025 Bacteria identified Anaer cx Nom (Unsp spec) No anaerobic bacteria isolated. [facility] Anion gap in Serum or Plasma Ordered By: Nicola Roman on 04-10-2025 Anion gap [Moles/Vol] 12 mmol/L 5-15 [facility] Automated lymphocyte count a s percentage of total leukocytesOrdered By: Nicola Roman on 04-10-2025 Lymphocytes/100 WBC Auto (Unsp spec) 1.9 % Low 19-41 [facility] BUN/creatinine ratioOrdered By: Nicola Roman on 04-10-2025 Urea nitrogen/Creatinine [Mass ratio] 44.4 mg/mg High 10-20 [facility] Basic Metabolic Profile (BMP )on 04-10-2025 BUN/CRE 44.4 RATIO High 10-20 [facility] Comment on above: Performed By: #### L 100.0100, L500.2500 ####[facility] [address] [place], [address] Calcium [Mass/Vol] 8.4 mg/dL Normal 7.6-11.0 [facility] Comment on above: Performed By: #### L 100.0100, L500.2500 ####[facility] [address] [place], [address] Chloride [Moles/Vol] 92 mmol/L Low 98-108 [facility] Comment on above: Performed By: #### L 100.0100, L500.2500 ####[facility] [address] [place], [address] CO2 [Moles/Vol] 32.1 mmol/L High 21.0-32.0 [facility] Comment on above: Performed By: #### L 100.0100, L500.2500 ####[facility] [address] [place], [address] Creatinine [Mass/Vol] 1.71 mg/dL High 0.70-1.20 [facility] Comment on above: Performed By: #### L 100.0100, L500.2500 ####[facility] [address] [place], [address] ECRCL 31.09 ml/min Low 50-250 [facility] Comment on above: Performed By: #### L 100.0100, L500.2500 ####[facility] [address] [place], [address] GAP 12 Normal 5-15 [facility] Comment on above: Performed By: #### L 100.0100, L500.2500 ####[facility] [address] [place], [address] GFR/1.73 sq M.predicted among non-blacks MDRD (S/P/Bld) [Vol rate/Area] 40 mL/min/{1.73_m2} Low >60 [facility] Comment on above: Result Comment: mL/m in/1.73m2 CKD-EPI Creatinine Equation (2020) Performed By: #### L 100.0100, L500.2500 ####[facility] [address] [place], [address] Glucose [Mass/Vol] 244 mg/dL High 70-99 [facility] Comment on above: Performed By: #### L 100.0100, L500.2500 ####[facility] [address] [place], [address] Potassium [Moles/Vol] 4.1 mmol/L Normal 3.3-5.1 [facility] Comment on above: Performed By: #### L 100.0100, L500.2500 ####[facility] [address] [place], [address] Sodium [Moles/Vol] 137 mmol/L Normal 133-145 [facility] Comment on above: Performed By: #### L 100.0100, L500.2500 ####[facility] [address] [place], [address] Urea nitrogen [Mass/Vol] 76 mg/dL High 4-19 [facility] Comment on above: Performed By: #### L 100.0100, L500.2500 ####[facility] [address] [place], [address] Basophil percentageOrdered B y: Nicola Roman on 04-10-2025 Basophils/100 WBC (Bld) 0.1 % 0-1 [facility] Bedside Glucoseon 04-10-2025 FINGERSTICK GLU 341 mg/dL High 74-106 [facility] Comment on above: Result Comment: KODY GEMENT OF PATIENT CARE PER NURSING PROTOCOL Performed By: #### L 501.080 ####[facility] [address] [place], [address] FINGERSTICK GLU 327 mg/dL High 74-106 [facility] Comment on above: Result Comment: KODY GEMENT OF PATIENT CARE PER NURSING PROTOCOL Performed By: #### L 501.080 ####[facility] [address] [place], [address] FINGERSTICK GLU 346 mg/dL High 74-106 [facility] Comment on above: Result Comment: KODY GEMENT OF PATIENT CARE PER NURSING PROTOCOL Performed By: #### L 501.080 ####[facility] [address] [place], [address] FINGERSTICK GLU 236 mg/dL High 74-106 [facility] Comment on above: Result Comment: KODY GEMENT OF PATIENT CARE PER NURSING PROTOCOL Performed By: #### L 501.080 ####[facility] [address] [place], [address] Body Fluid Cell Count+Diffon 04-10-2025 PATH COMM/BF Reviewed Normal [facility] Comment on above: Order Comment: The r eference range and other method performancespecifications have not been established for this bodyfluid. The test must be integrated into the clinicalcontext for interpretation. Result Comment: DISPENSING LEAD MYRANDA INFLAMMATORY CELLS. OCCASIONAL MESOTHELIAL CELLSNOTED. NO MALIGNANT CELLS IDENTIFIED.Ludmila GOMEZ MD 04/10/25 @1730 AMENDED REPORT 04/10/251734 PATH COMM/BF previously reported as: May follow Performed By: #### M 100.4001, L350.1000, L200.0200, M100.2900, M100.2000 ####[facility] [address] [place], [address] Body fluid appearance (nomin al result)Ordered By: Nicola Roman on 04-10-2025 Appearance (Body fld) CLEAR [facility] Body fluid color determinati onOrdered By: Nicola Roman on 04-10-2025 Color (Body fld) YELLOW [facility] Body fluid cultureOrdered By : Nicola Roman on 04-10-2025 Microbial culture, body fluid Culture exhibits no growth. [facility] Body fluid lactate dehydroge nase measurement (enzymatic activity/volume) by pyruvateOrdered By: Nicola Roman on 04-10-2025 LDH Pyruvate to lactate reaction (Body fld) [Catalytic activity/Vol] 61 Units/L Not Establ. [facility] Body fluid leukocytes count (number/volume)Ordered By: Nicola Roman on 04-10-2025 WBC (Body fld) [#/Vol] 0.128 10*3/uL [facility] Body fluid lymphocytes/100 l eukocytesOrdered By: Nicola Roman on 04-10-2025 Lymphocytes/100 WBC (Body fld) 44 % [facility] Body fluid macrophage countO rdered By: Nicola Roman on 04-10-2025 Macrophages (Body fld) [#/Vol] 41 % [facility] Body fluid mononuclear cell percentageOrdered By: Nicola Roman on 04-10-2025 Mononuclear cells/100 WBC (Body fld) 94.6 % [facility] Body fluid protein measureme nt (mass/volume)Ordered By: Nicola Roman on 04-10-2025 Protein (Body fld) [Mass/Vol] 2.1 g/dL Not Establ. [facility] Body fluid segmented neutrop hils count (number/volume)Ordered By: Nicola Roman on 04-10-2025 Segmented neutrophils (Body fld) [#/Vol] 6 % [facility] Body fluid total cell countO rdered By: Nicola Roman on 04-10-2025 Cells Counted Total (Body fld) [#] 0.154 10^3/ul [facility] CBC W/Diff, Automatedon 03-21 Absolute Lymph 0.17 X10 3/uL Low 0.83-4.51 [facility] Comment on above: Performed By: #### L 100.0100, L500.2500 ####[facility] [address] [place], [address] Absolute Neut 8.2 X10 3/uL High 2.0-7.7 [facility] Comment on above: Performed By: #### L 100.0100, L500.2500 ####[facility] [address] [place], [address] Basophils/100 WBC (Bld) 0.1 % Normal 0-1 [facility] Comment on above: Performed By: #### L 100.0100, L500.2500 ####[facility] [address] [place], [address] Eosinophils/100 WBC (Bld) 0.0 % Normal 0-5 [facility] Comment on above: Performed By: #### L 100.0100, L500.2500 ####[facility] [address] [place], [address] Erythrocyte distribution width (RBC) [Ratio] 17.1 % High 11.6-14.6 [facility] Comment on above: Performed By: #### L 100.0100, L500.2500 ####[facility] [address] [place], [address] Hematocrit (Bld) [Volume fraction] 28.2 % Low 40-54 [facility] Comment on above: Performed By: #### L 100.0100, L500.2500 ####[facility] [address] [place], [address] Hemoglobin (Bld) [Mass/Vol] 8.7 g/dL Low 13.0-16.5 [facility] Comment on above: Performed By: #### L 100.0100, L500.2500 ####[facility] [address] [place], [address] IG% 0.900 Normal 0.0-0.9 [facility] Comment on above: Result Comment: IG% - Immature Granulocytes (promyelocytes, myelocytes andmetamyelocytes) > 1% indicates that a LEFT SHIFT is Present. Performed By: #### L 100.0100, L500.2500 ####[facility] [address] [place], [address] Lymphocytes/100 WBC (Bld) 1.9 % Low 19-41 [facility] Comment on above: Performed By: #### L 100.0100, L500.2500 ####[facility] [address] [place], [address] MCH (RBC) [Entitic mass] 26.9 pg Low 27.0-32.0 [facility] Comment on above: Performed By: #### L 100.0100, L500.2500 ####[facility] [address] [place], [address] MCHC (RBC) [Mass/Vol] 30.9 g/dL Low 32-36 [facility] Comment on above: Performed By: #### L 100.0100, L500.2500 ####[facility] [address] [place], [address] MCV (RBC) [Entitic vol] 87.0 fL Normal 80-94 [facility] Comment on above: Performed By: #### L 100.0100, L500.2500 ####[facility] [address] [place], [address] Monocytes/100 WBC (Bld) 5.5 % Normal 0-10 [facility] Comment on above: Performed By: #### L 100.0100, L500.2500 ####[facility] [address] [place], [address] Neutrophils/100 WBC (Bld) 91.6 % High 47-70 [facility] Comment on above: Performed By: #### L 100.0100, L500.2500 ####[facility] [address] [place], [address] Nucleated RBC (Bld) [#/Vol] 0.2 10*3/uL Normal 0-5 [facility] Comment on above: Performed By: #### L 100.0100, L500.2500 ####[facility] [address] [place], [address] Platelet mean volume (Bld) [Entitic vol] 10.0 fL Normal 6.2-12.0 [facility] Comment on above: Performed By: #### L 100.0100, L500.2500 ####[facility] [address] [place], [address] Platelets (Bld) [#/Vol] 208 10*3/uL Normal 150-450 [facility] Comment on above: Performed By: #### L 100.0100, L500.2500 ####[facility] [address] [place], [address] RBC (Bld) [#/Vol] 3.24 10*6/uL Low 4.6-6.2 [facility] Comment on above: Performed By: #### L 100.0100, L500.2500 ####[facility] [address] [place], [address] RDW SD 53.5 fl High 35.1-43.9 [facility] Comment on above: Performed By: #### L 100.0100, L500.2500 ####[facility] [address] [place], [address] WBC (Bld) [#/Vol] 9.0 10*3/uL Normal 4.4-11.0 [facility] Comment on above: Performed By: #### L 100.0100, L500.2500 ####[facility] [address] [place], [address] Carbon dioxide, total [Moles /volume] in Central venous bloodOrdered By: Nicola Roman on 04-10-2025 CO2 [Moles/Vol] 32.1 mmol/L High 21.0-32.0 [facility] Chest without Contraston Chest without Contrast Normal [facility] Chloride assayOrdered By: Stephen Roman on 04-10-2025 Chloride [Moles/Vol] 92 mmol/L Low 98-108 [facility] Cytology, Body Fluid / CSFon 04-10-2025 CYTOLOGY,BF/CSF SEE PATHOLOGY REPORT Normal [facility] Comment on above: Result Comment: Spec imen submitted to Anatomical Pathology Department fortesting. Performed By: #### M 100.4001, L350.1000, L200.0200, M100.2900, M100.2000 ####[facility] [address] [place], [address] Eosinophil percentageOrdered By: Nicola Roman on 04-10-2025 Eosinophils/100 WBC (Bld) 0.0 % 0-5 [facility] Erythrocyte distribution wid th ratioOrdered By: Nicola Roman on 04-10-2025 Erythrocyte distribution width (RBC) [Ratio] 17.1 % High 11.6-14.6 [facility] Erythrocyte distribution wid th standard deviationOrdered By: Nicola Roman on 04-10-2025 Erythrocyte distribution width (RBC) [Ratio] 53.5 fl High 35.1-43.9 [facility] Glomerular filtration rate ( GFR) estimation/1.73 sq m using serum, plasma, or whole bOrdered By: Nicola Roman on 04-10-2025 GFR/1.73 sq M.predicted among non-blacks MDRD (S/P/Bld) [Vol rate/Area] 40 mL/min/{1.73_m2} Low >60 [facility] Glucose measurement at [facility] deOrdered By: Nicola Roman on 04-10-2025 Glucose [Mass/Vol] 327 mg/dL High 74-106 [facility] Glucose, Body Fluidon 2024 GLUC, BODY FLD 274 mg/dL Normal Not Establ. [facility] Comment on above: Performed By: #### L 504.0250, L503.0100, L503.0300 ####[facility] [address] [place], [place], [id number] Gram stainOrdered By: Nicola Roman on 04-10-2025 Microscopic observation Gram stain Nom (Unsp spec) [facility] Hematocrit Auto (Bld) [Volum e fraction]Ordered By: Nicola Roman on 04-10-2025 Hematocrit (Bld) [Volume fraction] 28.2 % Low 40-54 [facility] Hemoglobin measurementOrdere d By: Nicola Roman on 04-10-2025 Hemoglobin (Bld) [Mass/Vol] 8.7 g/dL Low 13.0-16.5 [facility] Immature granulocytes/100 WB C Auto (Bld)Ordered By: Nicola Roman on 04-10-2025 Immature granulocytes/100 WBC (Bld) 0.900 % 0.0-0.9 [facility] LDHon 04-10-2025 LDH 179 U/L Normal 87-241 [facility] Comment on above: Order Comment: FG1 3 O Performed By: #### L 504.2610 ####[facility] [address] [place], [place], [id number] LDH,Body Fluidon 04-10-2025 LDH,BF 61 Units/L Normal Not Establ. [facility] Comment on above: Performed By: #### L 504.0250, L503.0100, L503.0300 ####[facility] [address] [place], [place], [id number] MCV (mean corpuscular volume ) determinationOrdered By: Nicola Roman on 04-10-2025 MCV (RBC) [Entitic vol] 87.0 fL 80-94 [facility] Mean corpuscular hemoglobin (MCH) determinationOrdered By: Nicola Roman on 04-10-2025 MCH (RBC) [Entitic mass] 26.9 pg Low 27.0-32.0 [facility] Monocyte detectionOrdered By : Nicola Roman on 04-10-2025 Monocytes/100 WBC (Bld) 9 % [facility] Monocyte percentageOrdered B y: Nicola Roman on 04-10-2025 Monocytes/100 WBC (Bld) 5.5 % 0-10 [facility] Neutrophil percentageOrdered By: Nicola Roman on 04-10-2025 Neutrophils/100 WBC (Bld) 91.6 % High 47-70 [facility] No Panel InformationOrdered By: Nicola Roman on 04-10-2025 495 /mm3 [facility] SEE COMMENT [facility] Pacemaker Checkon 04-10-2025 Pacemaker Check Normal [facility] Partial Thromboplast Timeon 04-10-2025 aPTT Coag (Bld) [Time] 29.5 s Normal 24.1-36.[address] [facility] Comment on above: Performed By: #### L 300.3900, L300.4310 ####[facility] [address] [place], [address] Pathologist interpretation o f Body fluid testsOrdered By: Nicola Roman on 04-10-2025 Pathologist interpretation (Body fld) [Interp] Reviewed [facility] Platelet countOrdered By: Stephen Roman on 04-10-2025 Platelets (Bld) [#/Vol] 208 10*3/uL 150-450 [facility] Potassium measurement (mass/ volume)Ordered By: Nicola Roman on 04-10-2025 Potassium (Unsp spec) [Mass/Vol] 4.1 mmol/L 3.3-5.1 [facility] Protein, Body Fluidon 2024 Protein [Mass/Vol] 2.1 g/dL Normal Not Establ. [facility] Comment on above: Performed By: #### L 504.0250, L503.0100, L503.0300 ####[facility] [address] [place], [address] Prothrombin Time w/INRon INR Coag (PPP) [Relative time] 1.3 {INR} Normal [facility] Comment on above: Performed By: #### L 300.3900, L300.4310 ####[facility] [address] [place], [address] PT Coag (PPP) [Time] 16.7 s High 11.7-14.9 [facility] Comment on above: Performed By: #### L 300.3900, L300.4310 ####[facility] [address] [place], [address] Prothrombin timeOrdered By: Nicola Marroquin on 04-10-2025 [place] Coag (PPP) [Time] 16.7 s High 11.7-14.9 [facility] RBC Auto (Bld) [#/Vol]Ordere d By: Nicola Roman on 04-10-2025 RBC (Bld) [#/Vol] 3.24 10*6/uL Low 4.6-6.2 [facility] Serum creatinine measurement (mass/volume)Ordered By: Nicola Roman on 04-10-2025 Creatinine [Mass/Vol] 1.71 mg/dL High 0.70-1.20 [facility] Serum glucose measurement (m ass/volume)Ordered By: Nicola Roman on 04-10-2025 Glucose [Mass/Vol] 244 mg/dL High 70-99 [facility] Serum or plasma calcium kings[place] urement (mass/volume)Ordered By: Nicola Roman on 04-10-2025 Calcium [Mass/Vol] 8.4 mg/dL 7.6-11.0 [facility] Serum or plasma urea nitroge n measurement (mass/volume)Ordered By: Nicola Roman on 04-10-2025 Urea nitrogen [Mass/Vol] 76 mg/dL High 4-19 [facility] Sodium levelOrdered By: Jaspal Roman on 04-10-2025 Sodium [Moles/Vol] 137 mmol/L 133-145 [facility] Special Stain Group IIon Special Stain Group II Normal [facility] Comment on above: Performed By: #### P SSII ####[facility] [address] [place], [address] Specimen source identificati on of body fluidOrdered By: Nicola Roman on 04-10-2025 Specimen source Nom (Body fld) THORACENTESIS [facility] Thoracentesis W USon 025 Thoracentesis W US Normal [facility] White blood cell (WBC) count Ordered By: Nicola Roman on 04-10-2025 WBC (Bld) [#/Vol] 9.0 10*3/uL 4.4-11.0 [facility] 12 Lead EKGon 04-09-2025 12 Lead EKG Normal [facility] Basic Metabolic Profile (BMP )on 04-09-2025 BUN/CRE 37.7 RATIO High 10-20 [facility] Comment on above: Performed By: #### L 100.0100, L500.2500, L501.2300, L501.5200 ####[facility] [address] [place], [address] Calcium [Mass/Vol] 8.4 mg/dL Normal 7.6-11.0 [facility] Comment on above: Performed By: #### L 100.0100, L500.2500, L501.2300, L501.5200 ####[facility] [address] [place], [address] Chloride [Moles/Vol] 92 mmol/L Low 98-108 [facility] Comment on above: Performed By: #### L 100.0100, L500.2500, L501.2300, L501.5200 ####[facility] [address] [place], [address] CO2 [Moles/Vol] 31.9 mmol/L Normal 21.0-32.0 [facility] Comment on above: Performed By: #### L 100.0100, L500.2500, L501.2300, L501.5200 ####[facility] [address] [place], [address] Creatinine [Mass/Vol] 1.95 mg/dL High 0.70-1.20 [facility] Comment on above: Performed By: #### L 100.0100, L500.2500, L501.2300, L501.5200 ####[facility] [address] [place], [address] ECRCL 27.26 ml/min Low 50-250 [facility] Comment on above: Performed By: #### L 100.0100, L500.2500, L501.2300, L501.5200 ####[facility] [address] [place], [address] GAP 12 Normal 5-15 [facility] Comment on above: Performed By: #### L 100.0100, L500.2500, L501.2300, L501.5200 ####[facility] [address] [place], [address] GFR/1.73 sq M.predicted among non-blacks MDRD (S/P/Bld) [Vol rate/Area] 34 mL/min/{1.73_m2} Low >60 [facility] Comment on above: Result Comment: mL/m in/1.73m2 CKD-EPI Creatinine Equation (2020) Performed By: #### L 100.0100, L500.2500, L501.2300, L501.5200 ####[facility] [address] [place], [address] Glucose [Mass/Vol] 232 mg/dL High 70-99 [facility] Comment on above: Performed By: #### L 100.0100, L500.2500, L501.2300, L501.5200 ####[facility] [address] [place], [address] Potassium [Moles/Vol] 3.9 mmol/L Normal 3.3-5.1 [facility] Comment on above: Performed By: #### L 100.0100, L500.2500, L501.2300, L501.5200 ####[facility] [address] [place], [address] Sodium [Moles/Vol] 135 mmol/L Normal 133-145 [facility] Comment on above: Performed By: #### L 100.0100, L500.2500, L501.2300, L501.5200 ####[facility] [address] [place], [address] Urea nitrogen [Mass/Vol] 74 mg/dL High 4-19 [facility] Comment on above: Performed By: #### L 100.0100, L500.2500, L501.2300, L501.5200 ####[facility] [address] [place], [address] Bedside Glucoseon 04-09-2025 FINGERSTICK GLU 316 mg/dL High 74-106 [facility] Comment on above: Result Comment: KODY GEMENT OF PATIENT CARE PER NURSING PROTOCOL Performed By: #### L 501.080 ####[facility] [address] [place], [address] FINGERSTICK GLU 209 mg/dL High 74-106 [facility] Comment on above: Result Comment: KODY GEMENT OF PATIENT CARE PER NURSING PROTOCOL Performed By: #### L 501.080 ####[facility] [address] [place], [address] FINGERSTICK GLU 273 mg/dL High 74-106 [facility] Comment on above: Result Comment: KODY STRONG OF PATIENT CARE PER NURSING PROTOCOL Performed By: #### L 501.080 ####[facility] [address] [place], [address] CBC W/Diff, Automatedon - Absolute Lymph 0.19 X10 3/uL Low 0.83-4.51 [facility] Comment on above: Performed By: #### L 100.0100, L500.2500, L501.2300, L501.5200 ####[facility] [address] [place], [address] Absolute Neut 6.3 X10 3/uL Normal 2.0-7.7 [facility] Comment on above: Performed By: #### L 100.0100, L500.2500, L501.2300, L501.5200 ####[facility] [address] [place], [address] Basophils/100 WBC (Bld) 0.1 % Normal 0-1 [facility] Comment on above: Performed By: #### L 100.0100, L500.2500, L501.2300, L501.5200 ####[facility] [address] [place], [address] Eosinophils/100 WBC (Bld) 0.0 % Normal 0-5 [facility] Comment on above: Performed By: #### L 100.0100, L500.2500, L501.2300, L501.5200 ####[facility] [address] [place], [address] Erythrocyte distribution width (RBC) [Ratio] 16.9 % High 11.6-14.6 [facility] Comment on above: Performed By: #### L 100.0100, L500.2500, L501.2300, L501.5200 ####[facility] [address] [place], [address] Hematocrit (Bld) [Volume fraction] 27.7 % Low 40-54 [facility] Comment on above: Performed By: #### L 100.0100, L500.2500, L501.2300, L501.5200 ####[facility] [address] [place], [address] Hemoglobin (Bld) [Mass/Vol] 8.6 g/dL Low 13.0-16.5 [facility] Comment on above: Performed By: #### L 100.0100, L500.2500, L501.2300, L501.5200 ####[facility] [address] [place], [address] IG% 0.600 Normal 0.0-0.9 [facility] Comment on above: Result Comment: IG% - Immature Granulocytes (promyelocytes, myelocytes andmetamyelocytes) > 1% indicates that a LEFT SHIFT is Present. Performed By: #### L 100.0100, L500.2500, L501.2300, L501.5200 ####[facility] [address] [place], [address] Lymphocytes/100 WBC (Bld) 2.8 % Low 19-41 [facility] Comment on above: Performed By: #### L 100.0100, L500.2500, L501.2300, L501.5200 ####[facility] [address] [place], [address] MCH (RBC) [Entitic mass] 27.0 pg Normal 27.0-32.0 [facility] Comment on above: Performed By: #### L 100.0100, L500.2500, L501.2300, L501.5200 ####[facility] [address] [place], [address] MCHC (RBC) [Mass/Vol] 31.0 g/dL Low 32-36 [facility] Comment on above: Performed By: #### L 100.0100, L500.2500, L501.2300, L501.5200 ####[facility] [address] [place], [address] MCV (RBC) [Entitic vol] 87.1 fL Normal 80-94 [facility] Comment on above: Performed By: #### L 100.0100, L500.2500, L501.2300, L501.5200 ####[facility] [address] [place], [address] Monocytes/100 WBC (Bld) 4.7 % Normal 0-10 [facility] Comment on above: Performed By: #### L 100.0100, L500.2500, L501.2300, L501.5200 ####[facility] [address] [place], [address] Neutrophils/100 WBC (Bld) 91.8 % High 47-70 [facility] Comment on above: Performed By: #### L 100.0100, L500.2500, L501.2300, L501.5200 ####[facility] [address] [place], [address] Nucleated RBC (Bld) [#/Vol] 0.3 10*3/uL Normal 0-5 [facility] Comment on above: Performed By: #### L 100.0100, L500.2500, L501.2300, L501.5200 ####[facility] [address] [place], [address] Platelet mean volume (Bld) [Entitic vol] 10.1 fL Normal 6.2-12.0 [facility] Comment on above: Performed By: #### L 100.0100, L500.2500, L501.2300, L501.5200 ####[facility] [address] [place], [address] Platelets (Bld) [#/Vol] 203 10*3/uL Normal 150-450 [facility] Comment on above: Performed By: #### L 100.0100, L500.2500, L501.2300, L501.5200 ####[facility] [address] [place], [address] RBC (Bld) [#/Vol] 3.18 10*6/uL Low 4.6-6.2 [facility] Comment on above: Performed By: #### L 100.0100, L500.2500, L501.2300, L501.5200 ####[facility] [address] [place], [address] RDW SD 53.1 fl High 35.1-43.9 [facility] Comment on above: Performed By: #### L 100.0100, L500.2500, L501.2300, L501.5200 ####[facility] [address] [place], [address] WBC (Bld) [#/Vol] 6.9 10*3/uL Normal 4.4-11.0 [facility] Comment on above: Performed By: #### L 100.0100, L500.2500, L501.2300, L501.5200 ####[facility] [address] [place], [address] CVS/PACEMAKERon 04-09-2025 CVS/PACEMAKER Normal [facility] Chest 1 View (Portable)on Chest 1 View (Portable) Normal [facility] Electrocardiogram reportOrde red By: Orly Mitchell on 04-09-2025 EKG study [facility] Work Phone: Magnesiumon 04-09-2025 Magnesium [Mass/Vol] 2.2 mg/dL Normal 1.5-2.2 [facility] Comment on above: Performed By: #### L 100.0100, L500.2500, L501.2300, L501.5200 ####[facility] [address] [place], [address] Magnesium measurement (mass/ volume)Ordered By: Nicola Roman on 04-09-2025 Magnesium (Unsp spec) [Mass/Vol] 2.2 mg/dL 1.5-2.2 [facility] Phosphoruson 04-09-2025 Phosphate [Mass/Vol] 3.9 mg/dL Normal 2.7-4.5 [facility] Comment on above: Performed By: #### L 100.0100, L500.2500, L501.2300, L501.5200 ####[facility] [address] [place], [address] Basic Metabolic Profile (BMP )on 04-08-2025 BUN/CRE 33.8 RATIO High 06-08 [facility] Comment on above: Performed By: #### L 100.0100, L500.2500 ####[facility] [address] [place], [address] Calcium [Mass/Vol] 8.6 mg/dL Normal 7.6-11.0 [facility] Comment on above: Performed By: #### L 100.0100, L500.2500 ####[facility] [address] [place], [address] Chloride [Moles/Vol] 95 mmol/L Low 98-108 [facility] Comment on above: Performed By: #### L 100.0100, L500.2500 ####[facility] [address] [place], [address] CO2 [Moles/Vol] 32.0 mmol/L Normal 21.0-32.0 [facility] Comment on above: Performed By: #### L 100.0100, L500.2500 ####[facility] [address] [place], [address] Creatinine [Mass/Vol] 1.91 mg/dL High 0.70-1.20 [facility] Comment on above: Performed By: #### L 100.0100, L500.2500 ####[facility] [address] [place], [address] ECRCL 27.84 ml/min Low 50-250 [facility] Comment on above: Performed By: #### L 100.0100, L500.2500 ####[facility] [address] [place], [address] GAP 11 Normal 5-15 [facility] Comment on above: Performed By: #### L 100.0100, L500.2500 ####[facility] [address] [place], [address] GFR/1.73 sq M.predicted among non-blacks MDRD (S/P/Bld) [Vol rate/Area] 35 mL/min/{1.73_m2} Low >60 [facility] Comment on above: Result Comment: mL/m in/1.73m2 CKD-EPI Creatinine Equation (2020) Performed By: #### L 100.0100, L500.2500 ####[facility] [address] [place], [address] Glucose [Mass/Vol] 240 mg/dL High 70-99 [facility] Comment on above: Performed By: #### L 100.0100, L500.2500 ####[facility] [address] [place], [address] Potassium [Moles/Vol] 4.0 mmol/L Normal 3.3-5.1 [facility] Comment on above: Performed By: #### L 100.0100, L500.2500 ####[facility] [address] [place], [address] Sodium [Moles/Vol] 138 mmol/L Normal 133-145 [facility] Comment on above: Performed By: #### L 100.0100, L500.2500 ####[facility] [address] [place], [address] Urea nitrogen [Mass/Vol] 65 mg/dL High 4-19 [facility] Comment on above: Performed By: #### L 100.0100, L500.2500 ####[facility] [address] [place], [address] Bedside Glucoseon 04-08-2024 FINGERSTICK GLU 216 mg/dL High 74-106 [facility] Comment on above: Result Comment: KODY GEMENT OF PATIENT CARE PER NURSING PROTOCOL Performed By: #### L 501.080 ####[facility] [address] [place], [address] FINGERSTICK GLU 270 mg/dL High 74-106 [facility] Comment on above: Result Comment: KODY GEMENT OF PATIENT CARE PER NURSING PROTOCOL Performed By: #### L 501.080 ####[facility] [address] [place], [address] FINGERSTICK GLU 199 mg/dL High 74-106 [facility] Comment on above: Result Comment: KODY GEMENT OF PATIENT CARE PER NURSING PROTOCOL Performed By: #### L 501.080 ####[facility] [address] [place], [address] CBC W/Diff, Automatedon 08-2 0-2024 Absolute Lymph 0.24 X10 3/uL Low 0.83-4.51 [facility] Comment on above: Performed By: #### L 100.0100, L500.2500 ####[facility] [address] [place], [address] Absolute Neut 6.3 X10 3/uL Normal 2.0-7.7 [facility] Comment on above: Performed By: #### L 100.0100, L500.2500 ####[facility] [address] [place], [address] Basophils/100 WBC (Bld) 0.0 % Normal 0-1 [facility] Comment on above: Performed By: #### L 100.0100, L500.2500 ####[facility] [address] [place], [address] Eosinophils/100 WBC (Bld) 0.0 % Normal 0-5 [facility] Comment on above: Performed By: #### L 100.0100, L500.2500 ####[facility] [address] [place], [address] Erythrocyte distribution width (RBC) [Ratio] 17.2 % High 11.6-14.6 [facility] Comment on above: Performed By: #### L 100.0100, L500.2500 ####[facility] [address] [place], [address] Hematocrit (Bld) [Volume fraction] 27.0 % Low 40-54 [facility] Comment on above: Performed By: #### L 100.0100, L500.2500 ####[facility] [address] [place], [address] Hemoglobin (Bld) [Mass/Vol] 8.3 g/dL Low 13.0-16.5 [facility] Comment on above: Performed By: #### L 100.0100, L500.2500 ####[facility] [address] [place], [address] IG% 0.600 Normal 0.0-0.9 [facility] Comment on above: Result Comment: IG% - Immature Granulocytes (promyelocytes, myelocytes andmetamyelocytes) > 1% indicates that a LEFT SHIFT is Present. Performed By: #### L 100.0100, L500.2500 ####[facility] [address] [place], [address] Lymphocytes/100 WBC (Bld) 3.5 % Low 19-41 [facility] Comment on above: Performed By: #### L 100.0100, L500.2500 ####[facility] [address] [place], [address] MCH (RBC) [Entitic mass] 26.9 pg Low 27.0-32.0 [facility] Comment on above: Performed By: #### L 100.0100, L500.2500 ####[facility] [address] [place], [address] MCHC (RBC) [Mass/Vol] 30.7 g/dL Low 32-36 [facility] Comment on above: Performed By: #### L 100.0100, L500.2500 ####[facility] [address] [place], [address] MCV (RBC) [Entitic vol] 87.4 fL Normal 80-94 [facility] Comment on above: Performed By: #### L 100.0100, L500.2500 ####[facility] [address] [place], [address] Monocytes/100 WBC (Bld) 4.5 % Normal 0-10 [facility] Comment on above: Performed By: #### L 100.0100, L500.2500 ####[facility] [address] [place], [address] Neutrophils/100 WBC (Bld) 91.4 % High 47-70 [facility] Comment on above: Performed By: #### L 100.0100, L500.2500 ####[facility] [address] [place], [address] Nucleated RBC (Bld) [#/Vol] 0 10*3/uL Normal 0-5 [facility] Comment on above: Performed By: #### L 100.0100, L500.2500 ####[facility] [address] [place], [address] Platelet mean volume (Bld) [Entitic vol] 10.7 fL Normal 6.2-12.0 [facility] Comment on above: Performed By: #### L 100.0100, L500.2500 ####[facility] [address] [place], [address] Platelets (Bld) [#/Vol] 192 10*3/uL Normal 150-450 [facility] Comment on above: Performed By: #### L 100.0100, L500.2500 ####[facility] [address] [place], [address] RBC (Bld) [#/Vol] 3.09 10*6/uL Low 4.6-6.2 [facility] Comment on above: Performed By: #### L 100.0100, L500.2500 ####[facility] [address] [place], [address] RDW SD 54.2 fl High 35.1-43.9 [facility] Comment on above: Performed By: #### L 100.0100, L500.2500 ####[facility] [address] [place], [address] WBC (Bld) [#/Vol] 6.9 10*3/uL Normal 4.4-11.0 [facility] Comment on above: Performed By: #### L 100.0100, L500.2500 ####[facility] [address] [place], [address] Consultation - Cardiologyon 04-08-2025 Consultation - Cardiology Normal [facility] Basic Metabolic Profile (BMP )on 04-07-2025 BUN/CRE 26.3 RATIO High 10-20 [facility] Comment on above: Performed By: #### L 501.2300, L500.2500 ####[facility] [address] [place], [address] Calcium [Mass/Vol] 8.8 mg/dL Normal 7.6-11.0 [facility] Comment on above: Performed By: #### L 501.2300, L500.2500 ####[facility] [address] [place], [address] Chloride [Moles/Vol] 96 mmol/L Low 98-108 [facility] Comment on above: Performed By: #### L 501.2300, L500.2500 ####[facility] [address] [place], [address] CO2 [Moles/Vol] 29.8 mmol/L Normal 21.0-32.0 [facility] Comment on above: Performed By: #### L 501.2300, L500.2500 ####[facility] [address] [place], [address] Creatinine [Mass/Vol] 2.21 mg/dL High 0.70-1.20 [facility] Comment on above: Performed By: #### L 501.2300, L500.2500 ####[facility] [address] [place], [address] ECRCL 24.06 ml/min Low 50-250 [facility] Comment on above: Performed By: #### L 501.2300, L500.2500 ####[facility] [address] [place], [address] GAP 11 Normal 5-15 [facility] Comment on above: Performed By: #### L 501.2300, L500.2500 ####[facility] [address] [place], [address] GFR/1.73 sq M.predicted among non-blacks MDRD (S/P/Bld) [Vol rate/Area] 29 mL/min/{1.73_m2} Low >60 [facility] Comment on above: Result Comment: mL/m in/1.73m2 CKD-EPI Creatinine Equation (2020) Performed By: #### L 501.2300, L500.2500 ####[facility] [address] [place], [address] Glucose [Mass/Vol] 171 mg/dL High 70-99 [facility] Comment on above: Performed By: #### L 501.2300, L500.2500 ####[facility] [address] [place], [address] Potassium [Moles/Vol] 4.6 mmol/L Normal 3.3-5.1 [facility] Comment on above: Performed By: #### L 501.2300, L500.2500 ####[facility] [address] [place], [address] Sodium [Moles/Vol] 137 mmol/L Normal 133-145 [facility] Comment on above: Performed By: #### L 501.2300, L500.2500 ####[facility] [address] [place], [address] Urea nitrogen [Mass/Vol] 58 mg/dL High 4-19 [facility] Comment on above: Performed By: #### L 501.2300, L500.2500 ####[facility] [address] [place], [address] Bedside Glucoseon 04-07-2025 FINGERSTICK GLU 272 mg/dL High 74-106 [facility] Comment on above: Result Comment: KODY GEMENT OF PATIENT CARE PER NURSING PROTOCOL Performed By: #### L 501.080 ####[facility] [address] [place], [address] FINGERSTICK GLU 249 mg/dL High 74-106 [facility] Comment on above: Result Comment: KODY GEMENT OF PATIENT CARE PER NURSING PROTOCOL Performed By: #### L 501.080 ####[facility] [address] [place], [address] FINGERSTICK GLU 303 mg/dL High 74-106 [facility] Comment on above: Result Comment: KODY GEMENT OF PATIENT CARE PER NURSING PROTOCOL Performed By: #### L 501.080 ####[facility] [address] [place], [address] FINGERSTICK GLU 162 mg/dL High 74-106 [facility] Comment on above: Result Comment: KODY GEMENT OF PATIENT CARE PER NURSING PROTOCOL Performed By: #### L 501.080 ####[facility] [address] [place], [address] CBC W/Diff, Automatedon 08-08 28-2024 Absolute Lymph 0.20 X10 3/uL Low 0.83-4.51 [facility] Comment on above: Performed By: #### L 100.0100 ####[facility] [address] [place], [address] Absolute Neut 5.9 X10 3/uL Normal 2.0-7.7 [facility] Comment on above: Performed By: #### L 100.0100 ####[facility] [address] [place], [address] Basophils/100 WBC (Bld) 0.2 % Normal 0-1 [facility] Comment on above: Performed By: #### L 100.0100 ####[facility] [address] [place], [address] Eosinophils/100 WBC (Bld) 0.0 % Normal 0-5 [facility] Comment on above: Performed By: #### L 100.0100 ####[facility] [address] [place], [address] Erythrocyte distribution width (RBC) [Ratio] 17.1 % High 11.6-14.6 [facility] Comment on above: Performed By: #### L 100.0100 ####[facility] [address] [place], [address] Hematocrit (Bld) [Volume fraction] 25.6 % Low 40-54 [facility] Comment on above: Performed By: #### L 100.0100 ####[facility] [address] [place], [address] Hemoglobin (Bld) [Mass/Vol] 8.0 g/dL Low 13.0-16.5 [facility] Comment on above: Performed By: #### L 100.0100 ####[facility] [address] [place], [address] IG% 1.400 High 0.0-0.9 [facility] Comment on above: Result Comment: IG% - Immature Granulocytes (promyelocytes, myelocytes andmetamyelocytes) > 1% indicates that a LEFT SHIFT is Present. Performed By: #### L 100.0100 ####[facility] [address] [place], [address] Lymphocytes/100 WBC (Bld) 3.1 % Low 19-41 [facility] Comment on above: Performed By: #### L 100.0100 ####[facility] [address] [place], [address] MCH (RBC) [Entitic mass] 27.0 pg Normal 27.0-32.0 [facility] Comment on above: Performed By: #### L 100.0100 ####[facility] [address] [place], [address] MCHC (RBC) [Mass/Vol] 31.3 g/dL Low 32-36 [facility] Comment on above: Performed By: #### L 100.0100 ####[facility] [address] [place], [address] MCV (RBC) [Entitic vol] 86.5 fL Normal 80-94 [facility] Comment on above: Performed By: #### L 100.0100 ####[facility] [address] [place], [address] Monocytes/100 WBC (Bld) 2.5 % Normal 0-10 [facility] Comment on above: Performed By: #### L 100.0100 ####[facility] [address] [place], [address] Neutrophils/100 WBC (Bld) 92.8 % High 47-70 [facility] Comment on above: Performed By: #### L 100.0100 ####[facility] [address] [place], [address] Nucleated RBC (Bld) [#/Vol] 0 10*3/uL Normal 0-5 [facility] Comment on above: Performed By: #### L 100.0100 ####[facility] [address] [place], [address] Platelet mean volume (Bld) [Entitic vol] 10.4 fL Normal 6.2-12.0 [facility] Comment on above: Performed By: #### L 100.0100 ####[facility] [address] [place], [address] Platelets (Bld) [#/Vol] 189 10*3/uL Normal 150-450 [facility] Comment on above: Performed By: #### L 100.0100 ####[facility] [address] [place], [address] RBC (Bld) [#/Vol] 2.96 10*6/uL Low 4.6-6.2 [facility] Comment on above: Performed By: #### L 100.0100 ####[facility] [address] [place], [address] RDW SD 53.1 fl High 35.1-43.9 [facility] Comment on above: Performed By: #### L 100.0100 ####[facility] [address] [place], [address] WBC (Bld) [#/Vol] 6.4 10*3/uL Normal 4.4-11.0 [facility] Comment on above: Performed By: #### L 100.0100 ####[facility] [address] [place], [address] Electrocardiogram reportOrde red By: Issa Looney on 04-07-2025 EKG study [facility] Work Phone: Phosphoruson 04-07-2025 Phosphate [Mass/Vol] 4.6 mg/dL High 2.7-4.5 [facility] Comment on above: Performed By: #### L 501.2300, L500.2500 ####[facility] [address] [place], [address] Bedside Glucoseon 04-06-2025 FINGERSTICK GLU 378 mg/dL High [facility]106 [facility] Comment on above: Result Comment: KODY GEMENT OF PATIENT CARE PER NURSING PROTOCOL Performed By: #### L 501.080 ####[facility] [address] [place], [address] FINGERSTICK GLU 168 mg/dL High -[address] [place] [address] Comment on above: Result Comment: KODY GEMENT OF PATIENT CARE PER NURSING PROTOCOL Performed By: #### L 501.080 ####[facility] [address] [place], [address] FINGERSTICK GLU 140 mg/dL High -106 [facility] Comment on above: Result Comment: KODY GEMENT OF PATIENT CARE PER NURSING PROTOCOL Performed By: #### L 501.080 ####[facility] [address] [place], [address] FINGERSTICK GLU 116 mg/dL High 74-106 [facility] Comment on above: Result Comment: KODY GEMENT OF PATIENT CARE PER NURSING PROTOCOL Performed By: #### L 501.080 ####[facility] [address] [place], [address] FINGERSTICK GLU 112 mg/dL High 74-106 [facility] Comment on above: Result Comment: KODY GEMENT OF PATIENT CARE PER NURSING PROTOCOL Performed By: #### L 501.080 ####[facility] [address] [place], [address] Bilirubin, totalOrdered By: Nicola Madison on 04-06-2025 Bilirubin [Mass/Vol] 0.40 mg/dL 0.00-1.30 [facility] CBC W/Diff, Automatedon 03-20 Absolute Lymph 0.50 X10 3/uL Low 0.83-4.51 [facility] Comment on above: Performed By: #### L 100.0100 ####[facility] [address] [place], [address] Absolute Neut 6.4 X10 3/uL Normal 2.0-7.7 [facility] Comment on above: Performed By: #### L 100.0100 ####[facility] [address] [place], [address] Basophils/100 WBC (Bld) 0.5 % Normal 0-1 [facility] Comment on above: Performed By: #### L 100.0100 ####[facility] [address] [place], [address] Eosinophils/100 WBC (Bld) 0.5 % Normal 0-5 [facility] Comment on above: Performed By: #### L 100.0100 ####[facility] [address] [place], [address] Erythrocyte distribution width (RBC) [Ratio] 16.8 % High 11.6-14.6 [facility] Comment on above: Performed By: #### L 100.0100 ####[facility] [address] [place], [address] Hematocrit (Bld) [Volume fraction] 26.3 % Low 40-54 [facility] Comment on above: Performed By: #### L 100.0100 ####[facility] [address] [place], [address] Hemoglobin (Bld) [Mass/Vol] 7.9 g/dL Low 13.0-16.5 [facility] Comment on above: Performed By: #### L 100.0100 ####[facility] [address] [place], [address] IG% 0.600 Normal 0.0-0.9 [facility] Comment on above: Result Comment: IG% - Immature Granulocytes (promyelocytes, myelocytes andmetamyelocytes) > 1% indicates that a LEFT SHIFT is Present. Performed By: #### L 100.0100 ####[facility] [address] [place], [address] Lymphocytes/100 WBC (Bld) 6.4 % Low 19-41 [facility] Comment on above: Performed By: #### L 100.0100 ####[facility] [address] [place], [address] MCH (RBC) [Entitic mass] 26.9 pg Low 27.0-32.0 [facility] Comment on above: Performed By: #### L 100.0100 ####[facility] [address] [place], [address] MCHC (RBC) [Mass/Vol] 30.0 g/dL Low 32-36 [facility] Comment on above: Performed By: #### L 100.0100 ####[facility] [address] [place], [address] MCV (RBC) [Entitic vol] 89.5 fL Normal 80-94 [facility] Comment on above: Performed By: #### L 100.0100 ####[facility] [address] [place], [address] Monocytes/100 WBC (Bld) 10.1 % High 0-10 [facility] Comment on above: Performed By: #### L 100.0100 ####[facility] [address] [place], [address] Neutrophils/100 WBC (Bld) 81.9 % High 47-70 [facility] Comment on above: Performed By: #### L 100.0100 ####[facility] [address] [place], [address] Nucleated RBC (Bld) [#/Vol] 0 10*3/uL Normal 0-5 [facility] Comment on above: Performed By: #### L 100.0100 ####[facility] [address] [place], [address] Platelet mean volume (Bld) [Entitic vol] 10.4 fL Normal 6.2-12.0 [facility] Comment on above: Performed By: #### L 100.0100 ####[facility] [address] [place], [address] Platelets (Bld) [#/Vol] 178 10*3/uL Normal 150-450 [facility] Comment on above: Performed By: #### L 100.0100 ####[facility] [address] [place], [address] RBC (Bld) [#/Vol] 2.94 10*6/uL Low 4.6-6.2 [facility] Comment on above: Performed By: #### L 100.0100 ####[facility] [address] [place], [address] RDW SD 54.7 fl High 35.1-43.9 [facility] Comment on above: Performed By: #### L 100.0100 ####[facility] [address] [place], [address] WBC (Bld) [#/Vol] 7.8 10*3/uL Normal 4.4-11.0 [facility] Comment on above: Performed By: #### L 100.0100 ####[facility] [address] [place], [address] Chest 1 View (Portable)on Chest 1 View (Portable) Normal [facility] Comprehensive Metabolic Prof ilon 04-06-2025 Albumin [Mass/Vol] 3.3 g/dL Low 3.4-4.8 [facility] Comment on above: Performed By: #### L 503.7505, L500.4050, L501.2300 ####[facility] [address] [place], [address] Albumin/Globulin [Mass ratio] 0.9 {ratio} Normal 0.9-2.4 [facility] Comment on above: Performed By: #### L 503.7505, L500.4050, L501.2300 ####[facility] [address] [place], [address] ALK PHOS 70 U/L Normal 40-129 [facility] Comment on above: Performed By: #### L 503.7505, L500.4050, L501.2300 ####[facility] [address] [place], [address] ALT [Catalytic activity/Vol] 13 U/L Normal <=46 [facility] Comment on above: Performed By: #### L 503.7505, L500.4050, L501.2300 ####[facility] [address] [place], [address] AST [Catalytic activity/Vol] 19 U/L Normal <=37 [facility] Comment on above: Performed By: #### L 503.7505, L500.4050, L501.2300 ####[facility] [address] [place], [address] Bilirubin [Mass/Vol] 0.40 mg/dL Normal 0.00-1.30 [facility] Comment on above: Performed By: #### L 503.7505, L500.4050, L501.2300 ####[facility] [address] [place], [address] BUN/CRE 22.8 RATIO High 10-20 [facility] Comment on above: Performed By: #### L 503.7505, L500.4050, L501.2300 ####[facility] [address] [place], [address] Calcium [Mass/Vol] 8.8 mg/dL Normal 7.6-11.0 [facility] Comment on above: Performed By: #### L 503.7505, L500.4050, L501.2300 ####[facility] [address] [place], [address] Chloride [Moles/Vol] 100 mmol/L Normal 98-108 [facility] Comment on above: Performed By: #### L 503.7505, L500.4050, L501.2300 ####[facility] [address] [place], [address] CO2 [Moles/Vol] 27.9 mmol/L Normal 21.0-32.0 [facility] Comment on above: Performed By: #### L 503.7505, L500.4050, L501.2300 ####[facility] [address] [place], [address] Creatinine [Mass/Vol] 2.52 mg/dL High 0.70-1.20 [facility] Comment on above: Performed By: #### L 503.7505, L500.4050, L501.2300 ####[facility] [address] [place], [address] ECRCL 22.79 ml/min Low 50-250 [facility] Comment on above: Performed By: #### L 503.7505, L500.4050, L501.2300 ####[facility] [address] [place], [address] GAP 10 Normal 5-15 [facility] Comment on above: Performed By: #### L 503.7505, L500.4050, L501.2300 ####[facility] [address] [place], [address] GFR/1.73 sq M.predicted among non-blacks MDRD (S/P/Bld) [Vol rate/Area] 25 mL/min/{1.73_m2} Low >60 [facility] Comment on above: Result Comment: mL/m in/1.73m2 CKD-EPI Creatinine Equation (2020) Performed By: #### L 503.7505, L500.4050, L501.2300 ####[facility] [address] [place], [address] Globulin (S) [Mass/Vol] 3.5 g/dL Normal 2.2-4.2 [facility] Comment on above: Performed By: #### L 503.7505, L500.4050, L501.2300 ####[facility] [address] [place], [address] Glucose [Mass/Vol] 102 mg/dL High 70-99 [facility] Comment on above: Performed By: #### L 503.7505, L500.4050, L501.2300 ####[facility] [address] [place], [address] Potassium [Moles/Vol] 4.7 mmol/L Normal 3.3-5.1 [facility] Comment on above: Performed By: #### L 503.7505, L500.4050, L501.2300 ####[facility] [address] [place], [address] Sodium [Moles/Vol] 138 mmol/L Normal 133-145 [facility] Comment on above: Performed By: #### L 503.7505, L500.4050, L501.2300 ####[facility] [address] [place], [address] T PROT 6.8 g/dL Normal 5.9-8.4 [facility] Comment on above: Performed By: #### L 503.7505, L500.4050, L501.2300 ####[facility] [address] [place], [address] Urea nitrogen [Mass/Vol] 58 mg/dL High 4-19 [facility] Comment on above: Performed By: #### L 503.7505, L500.4050, L501.2300 ####[facility] [address] [place], [address] Consultation - Nephrologyon 04-06-2025 Consultation - Nephrology Normal [facility] Kidney and Bladderon 025 Kidney and Bladder Normal [facility] Natriuretic peptide.B prohor girish N-Terminal [Mass/volume] in Serum or PlasmaOrdered By: Nicola Madison on 04-06-2025 Natriuretic peptide.B prohormone N-Terminal [Mass/Vol] 4038 pg/mL High <1800 [facility] No Panel InformationOrdered By: Nicola Madison on 04-06-2025 19 U/L <38 [facility] Phosphoruson 04-06-2025 Phosphate [Mass/Vol] 5.4 mg/dL High 2.7-4.5 [facility] Comment on above: Performed By: #### L 503.7505, L500.4050, L501.2300 ####[facility] [address] [place], [address] Pro- Brain NATRIURETIC PEPTI Adrienne 04-06-2025 Natriuretic peptide B (Bld) [Mass/Vol] 4038 pg/mL High <=1800 [facility] Comment on above: Result Comment: Hear t Failure Unlikely: < 300 pg/mLHeart Failure Likely< 50 Years: > 450 pg/mL50-75 Years: > 900 pg/mL>75 Years: > 1800 pg/mL Performed By: #### L 503.7505, L500.4050, L501.2300 ####[facility] [address] [place], [address] Protein+Creatinine Ratio,Uri neon 04-06-2025 PROT:CRE RATIO 1660 mg/g CRE High 0-200 [facility] Comment on above: Performed By: #### L 501.0900 ####[facility] [address] [place], [address] UR CREAT 32.10 mg/dL Low 39.00-259. 00 [facility] Comment on above: Performed By: #### L 501.0900 ####[facility] [address] [place], [address] RESPIRATORY PANEL MOLECULARo n 04-06-2025 RP PANEL Normal [facility] Comment on above: Performed By: #### M 100.638 ####[facility] [address] [place], [address] Random urine creatinine kingsley urement (mass/volume)Ordered By: Madeline Sarabia on 04-06-2025 Creatinine Unsp time (U) [Mass/Vol] 32.10 mg/dL Low 39.00-259. 00 [facility] Respiratory pathogens detect ion panel by molecular detection methodOrdered By: Nicola Madison on 04-06-2025 Respiratory pathogens DNA and RNA panel BRYAN+probe (Resp) [facility] Serum globulin measurementOr dered By: Nicola Madison on 04-06-2025 Globulin (S) [Mass/Vol] 3.5 g/dL 2.2-4.2 [facility] Serum or plasma alanine ortiz otransferase (ALT) measurementOrdered By: Nicola Madison on 04-06-2025 ALT [Catalytic activity/Vol] 13 U/L <47 [facility] Serum or plasma albumin kingsley urement (mass/volume)Ordered By: Nicola Madison on 04-06-2025 Albumin [Mass/Vol] 3.3 g/dL Low 3.4-4.8 [facility] Serum or plasma albumin/glob ulin mass ratioOrdered By: Nicola Madison on 04-06-2025 Albumin/Globulin [Mass ratio] 0.9 {ratio} 0.9-2.4 [facility] Serum or plasma alkaline roosevelt sphatase measurementOrdered By: Nicola Madison on 04-06-2025 ALP [Catalytic activity/Vol] 70 U/L 40-129 [facility] Total proteinOrdered By: Jacob Madison on 04-06-2025 Protein [Mass/Vol] 6.8 g/dL 5.9-8.4 [facility] Urine protein measurement (m ass/volume)Ordered By: Madeline Sarabia on 04-06-2025 Protein (U) [Mass/Vol] 53.3 mg/dL High 0.0-12.[address] [facility] Comment on above: Performed By: #### L 501.0900 ####[facility] [address] [place], [place], [id number] Urine protein/creatinine mas s ratioOrdered By: Madeline Sarabia on 04-06-2025 Protein/Creatinine (U) [Mass ratio] 1660 mg/g CRE High 0-200 [facility] 12 Lead EKGon 04-05-2025 12 Lead EKG Normal [facility] Absolute lymphocyte countOrd ered By: Ld Hayes on 04-05-2025 Lymphocytes Auto (Unsp spec) [#/Vol] 0.64 10*3/uL Low 0.83-4.51 [facility] Anion gap in Serum or Plasma Ordered By: Ld Hayes on 04-05-2025 Anion gap [Moles/Vol] 11 mmol/L 5-15 [facility] Assessment of wrist artery p atency prior to arterial punctureOrdered By: Nicola Madison on 04-05-2025 Arterial patency Wrist artery --pre arterial puncture Positive [facility] Automated lymphocyte count a s percentage of total leukocytesOrdered By: Ld Hayes on 04-05-2025 Lymphocytes/100 WBC Auto (Unsp spec) 7.3 % Low 19-41 [facility] BUN/creatinine ratioOrdered By: Ld Hayes on 04-05-2025 Urea nitrogen/Creatinine [Mass ratio] 23.2 mg/mg High 10-20 [facility] Basic Metabolic Profile (BMP )on 04-05-2025 BUN/CRE 23.2 RATIO High 10- [facility] Comment on above: Performed By: #### L 100.0100, L500.2500 ####[facility] [address] [place], [address] Calcium [Mass/Vol] 8.8 mg/dL Normal 7.6-11.0 [facility] Comment on above: Performed By: #### L 100.0100, L500.2500 ####[facility] [address] [place], [address] Chloride [Moles/Vol] 97 mmol/L Low 98-108 [facility] Comment on above: Performed By: #### L 100.0100, L500.2500 ####[facility] [address] [place], [address] CO2 [Moles/Vol] 26.7 mmol/L Normal 21.0-32.0 [facility] Comment on above: Performed By: #### L 100.0100, L500.2500 ####[facility] [address] [place], [address] Creatinine [Mass/Vol] 2.57 mg/dL High 0.70-1.20 [facility] Comment on above: Performed By: #### L 100.0100, L500.2500 ####[facility] [address] [place], [address] ECRCL 22.62 ml/min Low 50-250 [facility] Comment on above: Performed By: #### L 100.0100, L500.2500 ####[facility] [address] [place], [address] GAP 11 Normal 5-15 [facility] Comment on above: Performed By: #### L 100.0100, L500.2500 ####[facility] [address] [place], [address] GFR/1.73 sq M.predicted among non-blacks MDRD (S/P/Bld) [Vol rate/Area] 25 mL/min/{1.73_m2} Low >60 [facility] Comment on above: Result Comment: mL/m in/1.73m2 CKD-EPI Creatinine Equation (2020) Performed By: #### L 100.0100, L500.2500 ####[facility] [address] [place], [address] Glucose [Mass/Vol] 164 mg/dL High 70-99 [facility] Comment on above: Performed By: #### L 100.0100, L500.2500 ####[facility] [address] [place], [address] Potassium [Moles/Vol] 5.8 mmol/L High 3.3-5.1 [facility] Comment on above: Result Comment: Hemo lysis present, Results??could be affected.?? Performed By: #### L 100.0100, L500.2500 ####[facility] [address] [place], [address] Sodium [Moles/Vol] 134 mmol/L Normal 133-145 [facility] Comment on above: Performed By: #### L 100.0100, L500.2500 ####[facility] [address] [place], [address] Urea nitrogen [Mass/Vol] 60 mg/dL High 4-19 [facility] Comment on above: Performed By: #### L 100.0100, L500.2500 ####[facility] [address] [place], [address] Basophil percentageOrdered B y: Ld Hayes on 04-05-2025 Basophils/100 WBC (Bld) 0.6 % 0-1 [facility] Bedside Glucoseon 04-05-2025 FINGERSTICK GLU 76 mg/dL Normal 74-106 [facility] Comment on above: Result Comment: KODY GEMENT OF PATIENT CARE PER NURSING PROTOCOL Performed By: #### L 501.080 ####[facility] [address] [place], [address] FINGERSTICK GLU 147 mg/dL High 74-106 [facility] Comment on above: Result Comment: KODY GEMENT OF PATIENT CARE PER NURSING PROTOCOL Performed By: #### L 501.080 ####[facility] [address] [place], [address] Bilirubin Test strip Ql (U)O rdered By: Nicola Madison on 04-05-2025 Bilirubin Ql (U) Negative Negative [facility] Blood Gases by CPSon 025 EMILIA TEST Positive Normal [facility] Comment on above: Performed By: #### L 9000.0800 ####[facility] [address] [place], [address] Base excess Calc (Bld) [Moles/Vol] 7 mmol/L High -2 to +2 [facility] Comment on above: Performed By: #### L 9000.0800 ####[facility] [address] [place], [address] Blood Gas Type ART Normal [facility] Comment on above: Performed By: #### L 9000.0800 ####[facility] [address] [place], [address] CO2 [Moles/Vol] 34 mmol/L Normal [facility] Comment on above: Performed By: #### L 8999.08 ####[facility] [address] [place], [address] FI02 6.0 Normal [facility] Comment on above: Performed By: #### L 0.0800 ####[facility] [address] [place], [address] HCO3 (Bld) [Moles/Vol] 32.4 mmol/L High 22-26 [facility] Comment on above: Performed By: #### L 8999.0800 ####[facility] [address] [place], [address] Mode Not entered Normal [facility] Comment on above: Performed By: #### L 8999.0800 ####[facility] [address] [place], [address] O2 Delivery Dev Cannula Normal [facility] Comment on above: Performed By: #### L 8999.0800 ####[facility] [address] [place], [address] pCO2 57.1 mmHg High 35-45 [facility] Comment on above: Performed By: #### L 0.0800 ####[facility] [address] [place], [address] pH (Bld) 7.36 [pH] Normal 7.35-7.45 [facility] Comment on above: Performed By: #### L 0.0800 ####[facility] [address] [place], [address] PO2 71 mmHG Low 75-100 [facility] Comment on above: Performed By: #### L 0.0800 ####[facility] [address] [place], [address] SITE R Radial Normal [facility] Comment on above: Performed By: #### L 9000.0800 ####[facility] [address] [place], [address] SO2 93 Low 95-99 [facility] Comment on above: Performed By: #### L 0.0800 ####[facility] [address] [place], [address] Blood base excess determinat ionOrdered By: Nicola Madison on 04-05-2025 Base excess Calc (BldV) [Moles/Vol] 7 mmol/L High -2-2 [facility] Blood bicarbonate measuremen tOrdered By: Nicola Madison on 04-05-2025 HCO3 (Bld) [Moles/Vol] 32.4 mmol/L High 22-26 [facility] CBC W/Diff, Automatedon 03-20 Absolute Lymph 0.64 X10 3/uL Low 0.83-4.51 [facility] Comment on above: Performed By: #### L 100.0100, L500.2500 ####[facility] [address] [place], [address] Absolute Neut 7.0 X10 3/uL Normal 2.0-7.7 [facility] Comment on above: Performed By: #### L 100.0100, L500.2500 ####[facility] [address] [place], [address] Basophils/100 WBC (Bld) 0.6 % Normal 0-1 [facility] Comment on above: Performed By: #### L 100.0100, L500.2500 ####[facility] [address] [place], [address] Eosinophils/100 WBC (Bld) 1.0 % Normal 0-5 [facility] Comment on above: Performed By: #### L 100.0100, L500.2500 ####[facility] [address] [place], [address] Erythrocyte distribution width (RBC) [Ratio] 17.1 % High 11.6-14.6 [facility] Comment on above: Performed By: #### L 100.0100, L500.2500 ####[facility] [address] [place], [address] Hematocrit (Bld) [Volume fraction] 29.0 % Low 40-54 [facility] Comment on above: Performed By: #### L 100.0100, L500.2500 ####[facility] [address] [place], [address] Hemoglobin (Bld) [Mass/Vol] 8.9 g/dL Low 13.0-16.5 [facility] Comment on above: Performed By: #### L 100.0100, L500.2500 ####[facility] [address] [place], [address] IG% 0.700 Normal 0.0-0.9 [facility] Comment on above: Result Comment: IG% - Immature Granulocytes (promyelocytes, myelocytes andmetamyelocytes) > 1% indicates that a LEFT SHIFT is Present. Performed By: #### L 100.0100, L500.2500 ####[facility] [address] [place], [address] Lymphocytes/100 WBC (Bld) 7.3 % Low 19-41 [facility] Comment on above: Performed By: #### L 100.0100, L500.2500 ####[facility] [address] [place], [address] MCH (RBC) [Entitic mass] 27.2 pg Normal 27.0-32.0 [facility] Comment on above: Performed By: #### L 100.0100, L500.2500 ####[facility] [address] [place], [address] MCHC (RBC) [Mass/Vol] 30.7 g/dL Low 32-36 [facility] Comment on above: Performed By: #### L 100.0100, L500.2500 ####[facility] [address] [place], [address] MCV (RBC) [Entitic vol] 88.7 fL Normal 80-94 [facility] Comment on above: Performed By: #### L 100.0100, L500.2500 ####[facility] [address] [place], [address] Monocytes/100 WBC (Bld) 10.7 % High 0-10 [facility] Comment on above: Performed By: #### L 100.0100, L500.2500 ####[facility] [address] [place], [address] Neutrophils/100 WBC (Bld) 79.7 % High 47-70 [facility] Comment on above: Performed By: #### L 100.0100, L500.2500 ####[facility] [address] [place], [address] Nucleated RBC (Bld) [#/Vol] 0.2 10*3/uL Normal 0-5 [facility] Comment on above: Performed By: #### L 100.0100, L500.2500 ####[facility] [address] [place], [address] Platelet mean volume (Bld) [Entitic vol] 11.1 fL Normal 6.2-12.0 [facility] Comment on above: Performed By: #### L 100.0100, L500.2500 ####[facility] [address] [place], [address] Platelets (Bld) [#/Vol] 226 10*3/uL Normal 150-450 [facility] Comment on above: Performed By: #### L 100.0100, L500.2500 ####[facility] [address] [place], [address] RBC (Bld) [#/Vol] 3.27 10*6/uL Low 4.6-6.2 [facility] Comment on above: Performed By: #### L 100.0100, L500.2500 ####[facility] [address] [place], [address] RDW SD 55.5 fl High 35.1-43.9 [facility] Comment on above: Performed By: #### L 100.0100, L500.2500 ####[facility] [address] [place], [address] WBC (Bld) [#/Vol] 8.7 10*3/uL Normal 4.4-11.0 [facility] Comment on above: Performed By: #### L 100.0100, L500.2500 ####[facility] [address] [place], [address] Carbon dioxide, total [Moles /volume] in Central venous bloodOrdered By: Ld Hayes on 04-05-2025 CO2 [Moles/Vol] 26.7 mmol/L 21.0-32.0 [facility] Chest PA and Lateralon 04-05 Chest PA and Lateral Normal [facility] Chloride assayOrdered By: Sky Hayes on 04-05-2025 Chloride [Moles/Vol] 97 mmol/L Low 98-108 [facility] Emergency Department Summary on 04-05-2025 Emergency Department Summary Normal [facility] Eosinophil percentageOrdered By: Ld Hayes on 04-05-2025 Eosinophils/100 WBC (Bld) 1.0 % 0-5 [facility] Erythrocyte distribution wid th ratioOrdered By: Ld Hayes on 04-05-2025 Erythrocyte distribution width (RBC) [Ratio] 17.1 % High 11.6-14.6 [facility] Erythrocyte distribution wid th standard deviationOrdered By: Ld Hayes on 04-05-2025 Erythrocyte distribution width (RBC) [Ratio] 55.5 fl High 35.1-43.9 [facility] Glomerular filtration rate ( GFR) estimation/1.73 sq m using serum, plasma, or whole bOrdered By: Ld Hayes on 04-05-2025 GFR/1.73 sq M.predicted among non-blacks MDRD (S/P/Bld) [Vol rate/Area] 25 mL/min/{1.73_m2} Low >60 [facility] Glucose measurement at [facility] deOrdered By: Ld Hayes on 04-05-2025 Glucose [Mass/Vol] 147 mg/dL High 74-106 [facility] H AND P Exam - [place] 04-05-2025 H&P Exam - Hospitalist Normal [facility] Hematocrit Auto (Bld) [Volum e fraction]Ordered By: Ld Hayes on 04-05-2025 Hematocrit (Bld) [Volume fraction] 29.0 % Low 40-54 [facility] Hemoglobin measurementOrdere d By: Ld Hayes on 04-05-2025 Hemoglobin (Bld) [Mass/Vol] 8.9 g/dL Low 13.0-16.5 [facility] Immature granulocytes/100 WB C Auto (Bld)Ordered By: Ld Hayes on 04-05-2025 Immature granulocytes/100 WBC (Bld) 0.700 % 0.0-0.9 [facility] Influenza virus A and B and SARS-CoV-2 (COVID-19) and Respiratory syncytial virus RNAOrdered By: Ld Hayes on 04-05-2025 SARS-CoV-2 (COVID-19) RNA BRYAN+probe Ql (Unsp spec) [facility] Ketones Test strip Ql (U)Ord ered By: Nicola Madison on 04-05-2025 Ketones Ql (U) Negative Negative [facility] L501.4021on 04-05-2025 Trop T High Sen 64 ng/L Invalid Interpretation Code <=22 [facility] Comment on above: Result Comment: Crit ical Result(s) Called [facility] at: 1805 by:RIVERA??Results read back by same. Performed By: #### L 501.4021 ####[facility] [address] [place], [address] M100.678on 04-05-2025 M100.678 SARS-CoV-2 (COVID 19 ) Negative INFLUENZA A Negative INFLUENZA B Negative RSV PCR Negative Normal [facility] Comment on above: Performed By: #### M 100.678 ####[facility] [address] [place], [address] MCV (mean corpuscular volume ) determinationOrdered By: Ld Hayes on 04-05-2025 MCV (RBC) [Entitic vol] 88.7 fL 80-94 [facility] Magnesiumon 04-05-2025 Magnesium [Mass/Vol] 2.5 mg/dL High 1.5-2.2 [facility] Comment on above: Performed By: #### L 501.9520, L501.5200 ####[facility] [address] [place], [place], [address] Magnesium measurement (mass/ volume)Ordered By: Nicola Madison on 04-05-2025 Magnesium (Unsp spec) [Mass/Vol] 2.5 mg/dL High 1.5-2.2 [facility] Mean corpuscular hemoglobin (MCH) determinationOrdered By: Ld Hayes on 04-05-2025 MCH (RBC) [Entitic mass] 27.2 pg 27.0-32.0 [facility] Measurement, pHOrdered By: Sarah Madison on 04-05-2025 pH (Unsp spec) 7.36 [pH] 7.35-7.45 [facility] Monocyte percentageOrdered B y: Ld Hayes on 04-05-2025 Monocytes/100 WBC (Bld) 10.7 % High 0-10 [facility] Mucus LM Ql (Urine sed)Order ed By: Nicola Madison on 04-05-2025 Mucus Ql (Urine sed) 0 SEEN /hpf [facility] Natriuretic peptide.B prohor girish N-Terminal [Mass/volume] in Serum or PlasmaOrdered By: Ld Hayes on 04-05-2025 Natriuretic peptide.B prohormone N-Terminal [Mass/Vol] 4003 pg/mL High <1800 [facility] Neutrophil percentageOrdered By: Ld Hayes on 04-05-2025 Neutrophils/100 WBC (Bld) 79.7 % High 47-70 [facility] Nitrite Test strip Ql (U)Ord ered By: Nicola Madison on 04-05-2025 Nitrite Ql (U) Negative Negative [facility] No Panel InformationOrdered By: Nicola Madison on 04-05-2025 ART [facility] R Radial [facility] Not entered [facility] Cannula [facility] Platelet countOrdered By: Sky Hayes on 04-05-2025 Platelets (Bld) [#/Vol] 226 10*3/uL 150-450 [facility] Potassium measurement (mass/ volume)Ordered By: Ld Hayes on 04-05-2025 Potassium (Unsp spec) [Mass/Vol] 5.8 mmol/L High 3.3-5.1 [facility] Pro- Brain NATRIURETIC PEPTI Adrienne 04-05-2025 Natriuretic peptide B (Bld) [Mass/Vol] 4003 pg/mL High <=1800 [facility] Comment on above: Result Comment: Hear t Failure Unlikely: < 300 pg/mLHeart Failure Likely< 50 Years: > 450 pg/mL50-75 Years: > 900 pg/mL>75 Years: > 1800 pg/mL Performed By: #### L 503.7953 ####[facility] [address] [place], [address] Protein Test strip Ql (U)Ord ered By: Nicola Madison on 04-05-2025 Protein Ql (U) 100 mg/dl High Negative [facility] RBC Auto (Bld) [#/Vol]Ordere d By: Ld Hayes on 04-05-2025 RBC (Bld) [#/Vol] 3.27 10*6/uL Low 4.6-6.2 [facility] Serum creatinine measurement (mass/volume)Ordered By: Ld Hayes on 04-05-2025 Creatinine [Mass/Vol] 2.57 mg/dL High 0.70-1.20 [facility] Serum glucose measurement (m ass/volume)Ordered By: Ld Hayes on 04-05-2025 Glucose [Mass/Vol] 164 mg/dL High 70-99 [facility] Serum or plasma calcium kings[place] urement (mass/volume)Ordered By: Ld Hayes on 04-05-2025 Calcium [Mass/Vol] 8.8 mg/dL 7.6-11.0 [facility] Serum or plasma urea nitroge n measurement (mass/volume)Ordered By: Ld Hayes on 04-05-2025 Urea nitrogen [Mass/Vol] 60 mg/dL High 4-19 [facility] Sodium levelOrdered By: Ld Hayes on 04-05-2025 Sodium [Moles/Vol] 134 mmol/L 133-145 [facility] Squamous epithelial cells de tection in urine sediment by light microscopyOrdered By: Nicola Madison on 04-05-2025 Epithelial cells.squamous LM Ql (Urine sed) 0-5 SEEN /hpf 0-5 [facility] TSH DL <= 0.005 mIU/L QnOrde red By: Nicola Madison on 04-05-2025 TSH Qn 3.830 uIU/mL 0.300-4.20 0 [facility] Thyroid Stim Hormone (TSH)on 04-05-2025 TSH 3.830 uIU/mL Normal 0.300-4.20 0 [facility] Comment on above: Performed By: #### L 501.9520, L501.5200 ####[facility] [address] [place], [address] Total carbon dioxide measure mentOrdered By: Nicola Madison on 04-05-2025 CO2 [Moles/Vol] 34 mmol/L [facility] Troponin T HS 2 HRon 025 Trop T High Sen 62 ng/L Invalid Interpretation Code <=22 [facility] Comment on above: Result Comment: Crit ical Result(s) Called [facility] at:2002 by:RIVERA??Results read back by same. Performed By: #### L 499.0042 ####[facility] [address] [place], [address] Troponin T HS 4 HRon 025 Trop T High Sen 60 ng/L Invalid Interpretation Code <=22 [facility] Comment on above: Result Comment: Crit ical Result(s) Called MIGUELINA OCHOA at: 2138 by:RIVERA??Results read back by same. Performed By: #### L 499.0043 ####[facility] [address] [place], [address] Troponin T.cardiac [Mass/vol ume] in Serum or Plasma by High sensitivity methodOrdered By: Ld Hayes on 04-05-2025 Troponin T.cardiac High sensitivity method [Mass/Vol] 60 ng/L High <22 [facility] Troponin T.cardiac High sensitivity method [Mass/Vol] 62 ng/L High <22 [facility] Troponin T.cardiac High sensitivity method [Mass/Vol] 64 ng/L High <22 [facility] Urinalysis, Completeon 04-05 BACTERIA 2+ /hpf Normal None Seen [facility] Comment on above: Order Comment: CLEAN CATCH Performed By: #### L 400.0001 ####[facility] [address] [place], [address] EPI,SQUAMOUS 0-5 SEEN Normal 0-5 [facility] Comment on above: Order Comment: CLEAN CATCH Performed By: #### L 400.0001 ####[facility] [address] [place], [address] RBC 0-5 SEEN Normal 0-5 [facility] Comment on above: Order Comment: CLEAN CATCH Performed By: #### L 400.0001 ####[facility] [address] [place], [address] WBC 5-10 SEEN Normal 0-5 [facility] Comment on above: Order Comment: CLEAN CATCH Performed By: #### L 400.0001 ####[facility] [address] [place], [address] Mucus Ql (Urine sed) 0 SEEN Normal [facility] Comment on above: Order Comment: CLEAN CATCH Performed By: #### L 400.0001 ####[facility] [address] [place], [address] Urine clarityOrdered By: Jacob Madison on 04-05-2025 Clarity (U) Clear Clear [facility] Urine color determinationOrd ered By: Nicola Madison on 04-05-2025 Color (U) Yellow Yellow [facility] Urine glucose detectionOrder ed By: Nicola Madison on 04-05-2025 Glucose Ql (U) Normal mg/dl Normal [facility] Urine leukocyte esterase det ection by dipstickOrdered By: Nicola Madison on 04-05-2025 Leukocyte esterase Test strip Ql (U) 500 /ul High Negative [facility] Urine pHOrdered By: Nicola stack on 04-05-2025 pH (U) 5.0 [pH] 5.0 - 8.0 [facility] Urine sediment bacteria coun t by microscopy (number/high power field)Ordered By: Nicola Madison on 04-05-2025 Bacteria LM.HPF (Urine sed) [#/Area] 2 /[HPF] None Seen [facility] Urine specific gravity measu rementOrdered By: Nicola Madison on 04-05-2025 Specific gravity (U) [Rel density] 1.015 1.002-1.03 0 [facility] Urine urobilinogen measureme ntOrdered By: Nicola Madison on 04-05-2025 Urobilinogen Ql (U) Normal mg/dl Normal [facility] White blood cell (WBC) count Ordered By: Ld Hayes on 04-05-2025 WBC (Bld) [#/Vol] 8.7 10*3/uL 4.4-11.0 [facility] White blood cell countOrdere d By: Nicola Madison on 04-05-2025 White blood cell count 5-10 SEEN /hpf 0-5 [facility] Absolute lymphocyte countOrd ered By: Leslie Arriaga on 04-02-2025 Lymphocytes Auto (Unsp spec) [#/Vol] 0.87 10*3/uL 0.83-4.51 [facility] Absolute neutrophil countOrd ered By: Leslie Arriaga on 04-02-2025 Neutrophils (Bld) [#/Vol] 6.9 10*3/uL 2.0-7.7 [facility] Anion gap in Serum or Plasma Ordered By: Leslie Arriaga on 04-02-2025 Anion gap [Moles/Vol] 10 mmol/L - [facility] Automated lymphocyte count a s percentage of total leukocytesOrdered By: Leslie Arriaga on 04-02-2025 Lymphocytes/100 WBC Auto (Unsp spec) 10.0 % Low 19- [facility] BUN/creatinine ratioOrdered By: Leslie Arriaga on 04-02-2025 Urea nitrogen/Creatinine [Mass ratio] 16.4 mg/mg - [facility] Basic Metabolic Profile (BMP )on 04-02-2025 BUN/CRE 16.4 RATIO Normal - [facility] Comment on above: Order Comment: Comme nts[facility] Performed By: #### L 100.0100, L503.7505, L500.2500 ####[facility] [address] [place], [address] Calcium [Mass/Vol] 9.2 mg/dL Normal 7.6-11.0 [facility] Comment on above: Order Comment: Comme nts: [facility] Performed By: #### L 100.0100, L503.7505, L500.2500 ####[facility] [address] [place], [address] Chloride [Moles/Vol] 99 mmol/L Normal 98-108 [facility] Comment on above: Order Comment: Comme nts: [facility] Performed By: #### L 100.0100, L503.7505, L500.2500 ####[facility] [address] [place], [address] CO2 [Moles/Vol] 27.8 mmol/L Normal 21.0-32.0 [facility] Comment on above: Order Comment: Comme nts: [facility] Performed By: #### L 100.0100, L503.7505, L500.2500 ####[facility] [address] [place], [address] Creatinine [Mass/Vol] 2.13 mg/dL High 0.70-1.20 [facility] Comment on above: Order Comment: Comme nts: [facility] Performed By: #### L 100.0100, L503.7505, L500.2500 ####[facility] [address] [place], [address] GAP 10 Normal 5-15 [facility] Comment on above: Order Comment: Comme nts: [facility] Performed By: #### L 100.0100, L503.7505, L500.2500 ####[facility] [address] [place], [address] GFR/1.73 sq M.predicted among non-blacks MDRD (S/P/Bld) [Vol rate/Area] 31 mL/min/{1.73_m2} Low >60 [facility] Comment on above: Order Comment: Comme nts: [facility] Result Comment: mL/m in/1.73m2 CKD-EPI Creatinine Equation (2020) Performed By: #### L 100.0100, L503.7505, L500.2500 ####[facility] [address] [place], [address] Glucose [Mass/Vol] 185 mg/dL High 70-99 [facility] Comment on above: Order Comment: Comme nts: [facility] to [facility] Performed By: #### L 100.0100, L503.7505, L500.2500 ####[facility] [address] [place], [address] Potassium [Moles/Vol] 5.6 mmol/L High 3.3-5.1 [facility] Comment on above: Order Comment: Comme nts: [facility] to [facility] Performed By: #### L 100.0100, L503.7505, L500.2500 ####[facility] [address] [place], [address] Sodium [Moles/Vol] 137 mmol/L Normal 133-145 [facility] Comment on above: Order Comment: Comme nts: [facility] to [facility] Performed By: #### L 100.0100, L503.7505, L500.2500 ####[facility] [address] [place], [address] Urea nitrogen [Mass/Vol] 35 mg/dL High 4-19 [facility] Comment on above: Order Comment: Comme nts: [facility] to [facility] Performed By: #### L 100.0100, L503.7505, L500.2500 ####[facility] [address] [place], [address] Basophil percentageOrdered B y: Leslie Arriaga on 04-02-2025 Basophils/100 WBC (Bld) 0.3 % 0-1 [facility] CBC W/Diff, Automatedon 08 Absolute Lymph 0.87 X10 3/uL Normal 0.83-4.51 [facility] Comment on above: Order Comment: Comme nts: Home Health to [facility] Tomorrow Performed By: #### L 100.0100, L503.7505, L500.2500 ####[facility] [address] [place], [address] Absolute Neut 6.9 X10 3/uL Normal 2.0-7.7 [facility] Comment on above: Order Comment: Comme nts: Home Health to Draw Tomorrow Performed By: #### L 100.0100, L503.7505, L500.2500 ####[facility] [address] [place], [address] Basophils/100 WBC (Bld) 0.3 % Normal 0-1 [facility] Comment on above: Order Comment: Comme nts: Home Health to [facility] Tomorrow Performed By: #### L 100.0100, L503.7505, L500.2500 ####[facility] [address] [place], [address] Eosinophils/100 WBC (Bld) 0.8 % Normal 0-5 [facility] Comment on above: Order Comment: Comme nts: Home Health to Draw Tomorrow Performed By: #### L 100.0100, L503.7505, L500.2500 ####[facility] [address] [place], [address] Erythrocyte distribution width (RBC) [Ratio] 17.1 % High 11.6-14.6 [facility] Comment on above: Order Comment: Comme nts: Home Health to [facility] Tomorrow Performed By: #### L 100.0100, L503.7505, L500.2500 ####[facility] [address] [place], [address] Hematocrit (Bld) [Volume fraction] 30.6 % Low 40-54 [facility] Comment on above: Order Comment: Comme nts: Home Health to Draw Tomorrow Performed By: #### L 100.0100, L503.7505, L500.2500 ####[facility] [address] [place], [address] Hemoglobin (Bld) [Mass/Vol] 9.2 g/dL Low 13.0-16.5 [facility] Comment on above: Order Comment: Comme nts: Home Health to Draw Tomorrow Performed By: #### L 100.0100, L503.7505, L500.2500 ####[facility] [address] [place], [address] IG% 0.600 Normal 0.0-0.9 [facility] Comment on above: Order Comment: Comme nts: Home Health to Draw Tomorrow Result Comment: IG% - Immature Granulocytes (promyelocytes, myelocytes andmetamyelocytes) > 1% indicates that a LEFT SHIFT is Present. Performed By: #### L 100.0100, L503.7505, L500.2500 ####[facility] [address] [place], [address] Lymphocytes/100 WBC (Bld) 10.0 % Low 19-41 [facility] Comment on above: Order Comment: Comme nts: Home Health to [facility] Tomorrow Performed By: #### L 100.0100, L503.7505, L500.2500 ####[facility] [address] [place], [address] MCH (RBC) [Entitic mass] 26.8 pg Low 27.0-32.0 [facility] Comment on above: Order Comment: Comme nts: Home Health to [facility] Tomorrow Performed By: #### L 100.0100, L503.7505, L500.2500 ####[facility] [address] [place], [address] MCHC (RBC) [Mass/Vol] 30.1 g/dL Low 32-36 [facility] Comment on above: Order Comment: Comme nts: Home Health to Draw Tomorrow Performed By: #### L 100.0100, L503.7505, L500.2500 ####[facility] [address] [place], [address] MCV (RBC) [Entitic vol] 89.2 fL Normal 80-94 [facility] Comment on above: Order Comment: Comme nts: Home Health to Draw Tomorrow Performed By: #### L 100.0100, L503.7505, L500.2500 ####[facility] [address] [place], [address] Monocytes/100 WBC (Bld) 8.9 % Normal 0-10 [facility] Comment on above: Order Comment: Comme nts: Home Health to [facility] Tomorrow Performed By: #### L 100.0100, L503.7505, L500.2500 ####[facility] [address] [place], [address] Neutrophils/100 WBC (Bld) 79.4 % High 47-70 [facility] Comment on above: Order Comment: Comme nts: Home Health to [facility] Tomorrow Performed By: #### L 100.0100, L503.7505, L500.2500 ####[facility] [address] [place], [address] Nucleated RBC (Bld) [#/Vol] 0 10*3/uL Normal 0-5 [facility] Comment on above: Order Comment: Comme nts: Home Health to [facility] Tomorrow Performed By: #### L 100.0100, L503.7505, L500.2500 ####[facility] [address] [place], [address] Platelet mean volume (Bld) [Entitic vol] 10.6 fL Normal 6.2-12.0 [facility] Comment on above: Order Comment: Comme nts: Home Health to [facility] Tomorrow Performed By: #### L 100.0100, L503.7505, L500.2500 ####[facility] [address] [place], [address] Platelets (Bld) [#/Vol] 210 10*3/uL Normal 150-450 [facility] Comment on above: Order Comment: Comme nts: Home Health to Draw Tomorrow Performed By: #### L 100.0100, L503.7505, L500.2500 ####[facility] [address] [place], [address] RBC (Bld) [#/Vol] 3.43 10*6/uL Low 4.6-6.2 [facility] Comment on above: Order Comment: Comme nts: Home Health to Draw Tomorrow Performed By: #### L 100.0100, L503.7505, L500.2500 ####[facility] [address] [place], [address] RDW SD 55.3 fl High 35.1-43.9 [facility] Comment on above: Order Comment: Comme nts: Home Health to [facility] Tomorrow Performed By: #### L 100.0100, L503.7505, L500.2500 ####[facility] [address] [place], [address] WBC (Bld) [#/Vol] 8.7 10*3/uL Normal 4.4-11.0 [facility] Comment on above: Order Comment: Comme nts: Home Health to Draw Tomorrow Performed By: #### L 100.0100, L503.7505, L500.2500 ####[facility] [address] [place], [address] Carbon dioxide, total [Moles /volume] in Central venous bloodOrdered By: Leslie Arriaga on 04-02-2025 CO2 [Moles/Vol] 27.8 mmol/L 21.0-32.0 [facility] Chloride assayOrdered By: Linsey Arriaga on 04-02-2025 Chloride [Moles/Vol] 99 mmol/L 98-108 [facility] Eosinophil percentageOrdered By: Leslie Arriaga on 04-02-2025 Eosinophils/100 WBC (Bld) 0.8 % 0-5 [facility] Erythrocyte distribution wid th ratioOrdered By: Leslie Arriaga on 04-02-2025 Erythrocyte distribution width (RBC) [Ratio] 17.1 % High 11.6-14.6 [facility] Erythrocyte distribution wid th standard deviationOrdered By: Leslie Arriaga on 04-02-2025 Erythrocyte distribution width (RBC) [Ratio] 55.3 fl High 35.1-43.9 [facility] Glomerular filtration rate ( GFR) estimation/1.73 sq m using serum, plasma, or whole bOrdered By: Leslie Arriaga on 04-02-2025 GFR/1.73 sq M.predicted among non-blacks MDRD (S/P/Bld) [Vol rate/Area] 31 mL/min/{1.73_m2} Low >60 [facility] Comment on above: mL/min/1.73m2 CKD-EP I Creatinine Equation (2020) Hematocrit Auto (Bld) [Volum e fraction]Ordered By: Leslie Arriaga on 04-02-2025 Hematocrit (Bld) [Volume fraction] 30.6 % Low 40-54 [facility] Hemoglobin measurementOrdere d By: Leslie Arriaga on 04-02-2025 Hemoglobin (Bld) [Mass/Vol] 9.2 g/dL Low 13.0-16.5 [facility] Immature granulocytes/100 WB C Auto (Bld)Ordered By: Leslie Arriaga on 04-02-2025 Immature granulocytes/100 WBC (Bld) 0.600 % 0.0-0.9 [facility] Comment on above: IG% - Immature Granu locytes (promyelocytes, myelocytes and metamyelocytes) > 1% indicates that a LEFT SHIFT is Present. MCV (mean corpuscular volume ) determinationOrdered By: Leslie Arriaga on 04-02-2025 MCV (RBC) [Entitic vol] 89.2 fL 80-94 [facility] Mean corpuscular hemoglobin (MCH) determinationOrdered By: Leslie Arriaga on 04-02-2025 MCH (RBC) [Entitic mass] 26.8 pg Low 27.0-32.0 [facility] Mean corpuscular hemoglobin concentration (MCHC) determinationOrdered By: Leslie Arriaga on 04-02-2025 MCHC (RBC) [Mass/Vol] 30.1 g/dL Low 32-36 [facility] Mean platelet volume determi nationOrdered By: Leslie Arriaga on 04-02-2025 Platelet mean volume (Bld) [Entitic vol] 10.6 fL 6.2-12.0 [facility] Monocyte percentageOrdered B y: Leslie Arriaga on 04-02-2025 Monocytes/100 WBC (Bld) 8.9 % 0-10 [facility] Natriuretic peptide.B prohor girish N-Terminal [Mass/volume] in Serum or PlasmaOrdered By: Leslie Arriaga on 04-02-2025 Natriuretic peptide.B prohormone N-Terminal [Mass/Vol] 2526 pg/mL High <1800 [facility] Comment on above: Heart Failure Unlike ly: < 300 pg/mLHeart Failure Likely< 50 Years: > 450 pg/mL50-75 Years: > 900 pg/mL>75 Years: > 1800 pg/mL Neutrophil percentageOrdered By: Leslie Arriaga on 04-02-2025 Neutrophils/100 WBC (Bld) 79.4 % High 47-70 [facility] Nucleated red blood cell per centageOrdered By: Leslie Arriaga on 04-02-2025 Nucleated RBC/100 WBC (Bld) [Ratio] 0 % 0-5 [facility] Platelet countOrdered By: Linsey Arriaga on 04-02-2025 Platelets (Bld) [#/Vol] 210 10*3/uL 150-450 [facility] Potassium measurement (mass/ volume)Ordered By: Leslie Arriaga on 04-02-2025 Potassium (Unsp spec) [Mass/Vol] 5.6 mmol/L High 3.3-5.1 [facility] Pro- Brain NATRIURETIC PEPTI Adrienne 04-02-2025 Natriuretic peptide B (Bld) [Mass/Vol] 2526 pg/mL High <=1800 [facility] Comment on above: Order Comment: Comme nts: Home Health to Draw Tomorrow Result Comment: Hear t Failure Unlikely: < 300 pg/mLHeart Failure Likely< 50 Years: > 450 pg/mL50-75 Years: > 900 pg/mL>75 Years: > 1800 pg/mL Performed By: #### L 100.0100, L503.7505, L500.2500 ####[facility] [address] [place], [address] RBC Auto (Bld) [#/Vol]Ordere d By: Leslie Arriaga on 04-02-2025 RBC (Bld) [#/Vol] 3.43 10*6/uL Low 4.6-6.2 [facility] Serum creatinine measurement (mass/volume)Ordered By: Leslie Arriaga on 04-02-2025 Creatinine [Mass/Vol] 2.13 mg/dL High 0.70-1.20 [facility] Serum glucose measurement (m ass/volume)Ordered By: Leslie Arriaga on 04-02-2025 Glucose [Mass/Vol] 185 mg/dL High 70-99 [facility] Serum or plasma calcium kingsley urement (mass/volume)Ordered By: Leslie Arriaga on 04-02-2025 Calcium [Mass/Vol] 9.2 mg/dL 7.6-11.0 [facility] Serum or plasma urea nitroge n measurement (mass/volume)Ordered By: Leslie Arriaga on 04-02-2025 Urea nitrogen [Mass/Vol] 35 mg/dL High 4-19 [facility] Sodium levelOrdered By: Brian Arriaga on 04-02-2025 Sodium [Moles/Vol] 137 mmol/L 133-145 [facility] White blood cell (WBC) count Ordered By: Leslie Arriaga on 04-02-2025 WBC (Bld) [#/Vol] 8.7 10*3/uL 4.4-11.0 [facility] Absolute lymphocyte countOrd ered By: Tonio Fajardo on 03-18-2025 Lymphocytes Auto (Unsp spec) [#/Vol] 0.88 10*3/uL 0.83-4.51 [facility] Absolute neutrophil countOrd ered By: Tonio Fajardo on 03-18-2025 Neutrophils (Bld) [#/Vol] 5.9 10*3/uL 2.0-7.7 [facility] Anion gap in Serum or Plasma Ordered By: Tonio Fajardo on 03-18-2025 Anion gap [Moles/Vol] 11 mmol/L 5-15 [facility] Automated lymphocyte count a s percentage of total leukocytesOrdered By: Tonio Fajardo on 03-18-2025 Lymphocytes/100 WBC Auto (Unsp spec) 11.2 % Low - [facility] BUN/creatinine ratioOrdered By: Tonio Fajardo on 03-18-2025 Urea nitrogen/Creatinine [Mass ratio] 14.8 mg/mg 06-08 [facility] Basic Metabolic Profile (BMP )on 03-18-2025 BUN/CRE 14.8 RATIO Normal 06-08 [facility] Comment on above: Performed By: #### L 500.2500, L100.0100 ####[facility] [address] [place], [address] Calcium [Mass/Vol] 9.5 mg/dL Normal 7.6-11.0 [facility] Comment on above: Performed By: #### L 500.2500, L100.0100 ####[facility] [address] [place], [address] Chloride [Moles/Vol] 99 mmol/L Normal 98-108 [facility] Comment on above: Performed By: #### L 500.2500, L100.0100 ####[facility] [address] [place], [address] CO2 [Moles/Vol] 26.7 mmol/L Normal 21.0-32.0 [facility] Comment on above: Performed By: #### L 500.2500, L100.0100 ####[facility] [address] [place], [address] Creatinine [Mass/Vol] 1.59 mg/dL High 0.70-1.20 [facility] Comment on above: Performed By: #### L 500.2500, L100.0100 ####[facility] [address] [place], [address] GAP 11 Normal - [facility] Comment on above: Performed By: #### L 500.2500, L100.0100 ####[facility] [address] [place], [address] GFR/1.73 sq M.predicted among non-blacks MDRD (S/P/Bld) [Vol rate/Area] 44 mL/min/{1.73_m2} Low >60 [facility] Comment on above: Result Comment: mL/m in/1.73m2 CKD-EPI Creatinine Equation (2020) Performed By: #### L 500.2500, L100.0100 ####[facility] [address] [place], [address] Glucose [Mass/Vol] 223 mg/dL High 70-99 [facility] Comment on above: Performed By: #### L 500.2500, L100.0100 ####[facility] [address] [place], [address] Potassium [Moles/Vol] 5.2 mmol/L High 3.3-5.1 [facility] Comment on above: Performed By: #### L 500.2500, L100.0100 ####[facility] [address] [place], [address] Sodium [Moles/Vol] 137 mmol/L Normal 133-145 [facility] Comment on above: Performed By: #### L 500.2500, L100.0100 ####[facility] [address] [place], [address] Urea nitrogen [Mass/Vol] 24 mg/dL High 4-19 [facility] Comment on above: Performed By: #### L 500.2500, L100.0100 ####[facility] [address] [place], [address] Basophil percentageOrdered B y: Tonio Fajardo on 03-18-2025 Basophils/100 WBC (Bld) 0.5 % 0-1 [facility] CBC W/Diff, Automatedon 07-3 0-2025 Absolute Lymph 0.88 X10 3/uL Normal 0.83-4.51 [facility] Comment on above: Performed By: #### L 500.2500, L100.0100 ####[facility] [address] [place], [address] Absolute Neut 5.9 X10 3/uL Normal 2.0-7.7 [facility] Comment on above: Performed By: #### L 500.2500, L100.0100 ####[facility] [address] [place], [address] Basophils/100 WBC (Bld) 0.5 % Normal 0-1 [facility] Comment on above: Performed By: #### L 500.2500, L100.0100 ####[facility] [address] [place], [address] Eosinophils/100 WBC (Bld) 3.1 % Normal 0-5 [facility] Comment on above: Performed By: #### L 500.2500, L100.0100 ####[facility] [address] [place], [address] Erythrocyte distribution width (RBC) [Ratio] 16.4 % High 11.6-14.6 [facility] Comment on above: Performed By: #### L 500.2500, L100.0100 ####[facility] [address] [place], [address] Hematocrit (Bld) [Volume fraction] 32.6 % Low 40-54 [facility] Comment on above: Performed By: #### L 500.2500, L100.0100 ####[facility] [address] [place], [address] Hemoglobin (Bld) [Mass/Vol] 9.7 g/dL Low 13.0-16.5 [facility] Comment on above: Performed By: #### L 500.2500, L100.0100 ####[facility] [address] [place], [address] IG% 1.100 High 0.0-0.9 [facility] Comment on above: Result Comment: IG% - Immature Granulocytes (promyelocytes, myelocytes andmetamyelocytes) > 1% indicates that a LEFT SHIFT is Present. Performed By: #### L 500.2500, L100.0100 ####[facility] [address] [place], [address] Lymphocytes/100 WBC (Bld) 11.2 % Low 19-41 [facility] Comment on above: Performed By: #### L 500.2500, L100.0100 ####[facility] [address] [place], [address] MCH (RBC) [Entitic mass] 26.8 pg Low 27.0-32.0 [facility] Comment on above: Performed By: #### L 500.2500, L100.0100 ####[facility] [address] [place], [address] MCHC (RBC) [Mass/Vol] 29.8 g/dL Low 32-36 [facility] Comment on above: Performed By: #### L 500.2500, L100.0100 ####[facility] [address] [place], [address] MCV (RBC) [Entitic vol] 90.1 fL Normal 80-94 [facility] Comment on above: Performed By: #### L 500.2500, L100.0100 ####[facility] [address] [place], [address] Monocytes/100 WBC (Bld) 9.4 % Normal 0-10 [facility] Comment on above: Performed By: #### L 500.2500, L100.0100 ####[facility] [address] [place], [address] Neutrophils/100 WBC (Bld) 74.7 % High 47-70 [facility] Comment on above: Performed By: #### L 500.2500, L100.0100 ####[facility] [address] [place], [address] Nucleated RBC (Bld) [#/Vol] 0 10*3/uL Normal 0-5 [facility] Comment on above: Performed By: #### L 500.2500, L100.0100 ####[facility] [address] [place], [address] Platelet mean volume (Bld) [Entitic vol] 10.4 fL Normal 6.2-12.0 [facility] Comment on above: Performed By: #### L 500.2500, L100.0100 ####[facility] [address] [place], [address] Platelets (Bld) [#/Vol] 252 10*3/uL Normal 150-450 [facility] Comment on above: Performed By: #### L 500.2500, L100.0100 ####[facility] [address] [place], [address] RBC (Bld) [#/Vol] 3.62 10*6/uL Low 4.6-6.2 [facility] Comment on above: Performed By: #### L 500.2500, L100.0100 ####[facility] [address] [place], [address] RDW SD 53.8 fl High 35.1-43.9 [facility] Comment on above: Performed By: #### L 500.2500, L100.0100 ####[facility] [address] [place], [address] WBC (Bld) [#/Vol] 7.9 10*3/uL Normal 4.4-11.0 [facility] Comment on above: Performed By: #### L 500.2500, L100.0100 ####[facility] [address] [place], [place], [id number] Carbon dioxide, total [Moles /volume] in Central venous bloodOrdered By: Tonio Fajardo on 03-18-2025 CO2 [Moles/Vol] 26.7 mmol/L 21.0-32.0 [facility] Chloride assayOrdered By: Min Fajardo on 03-18-2025 Chloride [Moles/Vol] 99 mmol/L 98-108 [facility] Eosinophil percentageOrdered By: Tonio Fajardo on 03-18-2025 Eosinophils/100 WBC (Bld) 3.1 % 0-5 [facility] Erythrocyte distribution wid th ratioOrdered By: Tonio Fajardo on 03-18-2025 Erythrocyte distribution width (RBC) [Ratio] 16.4 % High 11.6-14.6 [facility] Erythrocyte distribution wid th standard deviationOrdered By: Tonio Fajardo on 03-18-2025 Erythrocyte distribution width (RBC) [Ratio] 53.8 fl High 35.1-43.9 [facility] Glomerular filtration rate ( GFR) estimation/1.73 sq m using serum, plasma, or whole bOrdered By: Tonio Fajardo on 03-18-2025 GFR/1.73 sq M.predicted among non-blacks MDRD (S/P/Bld) [Vol rate/Area] 44 mL/min/{1.73_m2} Low >60 [facility] Comment on above: mL/min/1.73m2 CKD-EP I Creatinine Equation (2020) Hematocrit Auto (Bld) [Volum e fraction]Ordered By: Tonio Fajardo on 03-18-2025 Hematocrit (Bld) [Volume fraction] 32.6 % Low 40-54 [facility] Hemoglobin measurementOrdere d By: Tonio Fajardo on 03-18-2025 Hemoglobin (Bld) [Mass/Vol] 9.7 g/dL Low 13.0-16.5 [facility] Immature granulocytes/100 WB C Auto (Bld)Ordered By: Tonio Fajardo on 03-18-2025 Immature granulocytes/100 WBC (Bld) 1.100 % High 0.0-0.9 [facility] Comment on above: IG% - Immature Granu locytes (promyelocytes, myelocytes and metamyelocytes) > 1% indicates that a LEFT SHIFT is Present. MCV (mean corpuscular volume ) determinationOrdered By: Tonio Fajardo on 03-18-2025 MCV (RBC) [Entitic vol] 90.1 fL 80-94 [facility] Mean corpuscular hemoglobin (MCH) determinationOrdered By: Tonio Fajardo on 03-18-2025 MCH (RBC) [Entitic mass] 26.8 pg Low 27.0-32.0 [facility] Mean corpuscular hemoglobin concentration (MCHC) determinationOrdered By: Tonio Fajardo on 03-18-2025 MCHC (RBC) [Mass/Vol] 29.8 g/dL Low 32-36 [facility] Mean platelet volume determi nationOrdered By: Tonio Fajardo on 03-18-2025 Platelet mean volume (Bld) [Entitic vol] 10.4 fL 6.2-12.0 [facility] Monocyte percentageOrdered B y: Tonio Fajardo on 03-18-2025 Monocytes/100 WBC (Bld) 9.4 % 0-10 [facility] Neutrophil percentageOrdered By: Tonio Fajardo on 03-18-2025 Neutrophils/100 WBC (Bld) 74.7 % High 47-70 [facility] Nucleated red blood cell per centageOrdered By: Tonio Fajardo on 03-18-2025 Nucleated RBC/100 WBC (Bld) [Ratio] 0 % 0-5 [facility] Platelet countOrdered By: Min Fajardo on 03-18-2025 Platelets (Bld) [#/Vol] 252 10*3/uL 150-450 [facility] Potassium measurement (mass/ volume)Ordered By: Tonio Fajardo on 03-18-2025 Potassium (Unsp spec) [Mass/Vol] 5.2 mmol/L High 3.3-5.1 [facility] RBC Auto (Bld) [#/Vol]Ordere d By: Tonio Fajardo on 03-18-2025 RBC (Bld) [#/Vol] 3.62 10*6/uL Low 4.6-6.2 [facility] Serum creatinine measurement (mass/volume)Ordered By: Tonio Fajardo on 03-18-2025 Creatinine [Mass/Vol] 1.59 mg/dL High 0.70-1.20 [facility] Serum glucose measurement (m ass/volume)Ordered By: Tonio Fajardo on 03-18-2025 Glucose [Mass/Vol] 223 mg/dL High 70-99 [facility] Serum or plasma calcium kingsley urement (mass/volume)Ordered By: Tonio Fajardo on 03-18-2025 Calcium [Mass/Vol] 9.5 mg/dL 7.6-11.0 [facility] Serum or plasma urea nitroge n measurement (mass/volume)Ordered By: Tonio Fajardo on 03-18-2025 Urea nitrogen [Mass/Vol] 24 mg/dL High - [facility] Sodium levelOrdered By: Tonio Fajardo on 03-18-2025 Sodium [Moles/Vol] 137 mmol/L 133-145 [facility] White blood cell (WBC) count Ordered By: Tonio Fajardo on 03-18-2025 WBC (Bld) [#/Vol] 7.9 10*3/uL 4.4-11.0 [facility] Cardiology Visit Reporton Cardiology Visit Report Normal [facility] Emergency Department Summary on 03-15-2025 Emergency Department Summary Normal [facility] Basic Metabolic Profile (BMP )on 03-11-2025 BUN Normal 12-06 [facility] Comment on above: Result Comment: Canc elled via OM: Order cancelled - Patient discharged Performed By: #### L 500.2500, L100.0100 ####[facility] [address] [place], [address] BUN/CRE Normal - [facility] Comment on above: Result Comment: Canc elled via OM: Order cancelled - Patient discharged Performed By: #### L 500.2500, L100.0100 ####[facility] [address] [place], [address] Calcium Normal 7.6-11.0 [facility] Comment on above: Result Comment: Canc elled via OM: Order cancelled - Patient discharged Performed By: #### L 500.2500, L100.0100 ####[facility] [address] [place], [address] CL Normal 98-108 [facility] Comment on above: Result Comment: Canc elled via OM: Order cancelled - Patient discharged Performed By: #### L 500.2500, L100.0100 ####[facility] [address] [place], [address] CO2 Normal 21.0-32.0 [facility] Comment on above: Result Comment: Canc elled via OM: Order cancelled - Patient discharged Performed By: #### L 500.2500, L100.0100 ####[facility] [address] [place], [address] CREAT,SERUM Normal 0.70-1.20 [facility] Comment on above: Result Comment: Canc elled via OM: Order cancelled - Patient discharged Performed By: #### L 500.2500, L100.0100 ####[facility] [address] [place], [address] eGFR Normal >60 [facility] Comment on above: Result Comment: Canc elled via OM: Order cancelled - Patient discharged Performed By: #### L 500.2500, L100.0100 ####[facility] [address] [place], [address] GAP Normal 5-15 [facility] Comment on above: Result Comment: Canc elled via OM: Order cancelled - Patient discharged Performed By: #### L 500.2500, L100.0100 ####[facility] [address] [place], [address] GLU Normal 70-99 [facility] Comment on above: Result Comment: Canc elled via OM: Order cancelled - Patient discharged Performed By: #### L 500.2500, L100.0100 ####[facility] [address] [place], [address] Potassium Normal 3.3-5.1 [facility] Comment on above: Result Comment: Canc elled via OM: Order cancelled - Patient discharged Performed By: #### L 500.2500, L100.0100 ####[facility] [address] [place], [address] Basic Metabolic Profile (BMP) Normal 133-145 [facility] Comment on above: Result Comment: Canc elled via OM: Order cancelled - Patient discharged Performed By: #### L 500.2500, L100.0100 ####[facility] [address] [place], [address] CBC W/Diff, Automatedon 07-2 Absolute Neut Normal 2.0-7.7 [facility] Comment on above: Result Comment: Canc elled via OM: Order cancelled - Patient discharged Performed By: #### L 500.2500, L100.0100 ####[facility] [address] [place], [address] HCT Normal 40-54 [facility] Comment on above: Result Comment: Canc elled via OM: Order cancelled - Patient discharged Performed By: #### L 500.2500, L100.0100 ####[facility] [address] [place], [address] HGB Normal 13.0-16.5 [facility] Comment on above: Result Comment: Canc elled via OM: Order cancelled - Patient discharged Performed By: #### L 500.2500, L100.0100 ####[facility] [address] [place], [address] MCH Normal 27.0-32.0 [facility] Comment on above: Result Comment: Canc elled via OM: Order cancelled - Patient discharged Performed By: #### L 500.2500, L100.0100 ####[facility] [address] [place], [address] MCHC Normal 32-36 [facility] Comment on above: Result Comment: Canc elled via OM: Order cancelled - Patient discharged Performed By: #### L 500.2500, L100.0100 ####[facility] [address] [place], [address] MCV Normal 80-94 [facility] Comment on above: Result Comment: Canc elled via OM: Order cancelled - Patient discharged Performed By: #### L 500.2500, L100.0100 ####[facility] [address] [place], [address] NEUT% Normal 47-70 [facility] Comment on above: Result Comment: Canc elled via OM: Order cancelled - Patient discharged Performed By: #### L 500.2500, L100.0100 ####[facility] [address] [place], [address] PLT Normal 150-450 [facility] Comment on above: Result Comment: Canc elled via OM: Order cancelled - Patient discharged Performed By: #### L 500.2500, L100.0100 ####[facility] [address] [place], [address] RBC Normal 4.6-6.2 [facility] Comment on above: Result Comment: Canc elled via OM: Order cancelled - Patient discharged Performed By: #### L 500.2500, L100.0100 ####[facility] [address] [place], [address] RDW CV Normal 11.6-14.6 [facility] Comment on above: Result Comment: Canc elled via OM: Order cancelled - Patient discharged Performed By: #### L 500.2500, L100.0100 ####[facility] [address] [place], [address] RDW SD Normal 35.1-43.9 [facility] Comment on above: Result Comment: Canc elled via OM: Order cancelled - Patient discharged Performed By: #### L 500.2500, L100.0100 ####[facility] [address] [place], [address] WBC Normal 4.4-11.0 [facility] Comment on above: Result Comment: Canc elled via OM: Order cancelled - Patient discharged Performed By: #### L 500.2500, L100.0100 ####[facility] [address] [place], [address] Basic Metabolic Profile (BMP )on 03-10-2025 BUN Normal 4-19 [facility] Comment on above: Result Comment: Canc elled via OM: Order cancelled - Patient discharged Performed By: #### L 100.0100, L500.2500 ####[facility] [address] [place], [address] BUN/CRE Normal 10-20 [facility] Comment on above: Result Comment: Canc elled via OM: Order cancelled - Patient discharged Performed By: #### L 100.0100, L500.2500 ####[facility] [address] [place], [address] Calcium Normal 7.6-11.0 [facility] Comment on above: Result Comment: Canc elled via OM: Order cancelled - Patient discharged Performed By: #### L 100.0100, L500.2500 ####[facility] [address] [place], [address] CL Normal 98-108 [facility] Comment on above: Result Comment: Canc elled via OM: Order cancelled - Patient discharged Performed By: #### L 100.0100, L500.2500 ####[facility] [address] [place], [address] CO2 Normal 21.0-32.0 [facility] Comment on above: Result Comment: Canc elled via OM: Order cancelled - Patient discharged Performed By: #### L 100.0100, L500.2500 ####[facility] [address] [place], [address] CREAT,SERUM Normal 0.70-1.20 [facility] Comment on above: Result Comment: Canc elled via OM: Order cancelled - Patient discharged Performed By: #### L 100.0100, L500.2500 ####[facility] [address] [place], [address] eGFR Normal >60 [facility] Comment on above: Result Comment: Canc elled via OM: Order cancelled - Patient discharged Performed By: #### L 100.0100, L500.2500 ####[facility] [address] [place], [address] GAP Normal 5-15 [facility] Comment on above: Result Comment: Canc elled via OM: Order cancelled - Patient discharged Performed By: #### L 100.0100, L500.2500 ####[facility] [address] [place], [address] GLU Normal 70-99 [facility] Comment on above: Result Comment: Canc elled via OM: Order cancelled - Patient discharged Performed By: #### L 100.0100, L500.2500 ####[facility] [address] [place], [address] Potassium Normal 3.3-5.1 [facility] Comment on above: Result Comment: Canc elled via OM: Order cancelled - Patient discharged Performed By: #### L 100.0100, L500.2500 ####[facility] [address] [place], [address] Basic Metabolic Profile (BMP) Normal 133-145 [facility] Comment on above: Result Comment: Canc elled via OM: Order cancelled - Patient discharged Performed By: #### L 100.0100, L500.2500 ####[facility] [address] [place], [address] CBC W/Diff, Automatedon 07-2 Absolute Neut Normal 2.0-7.7 [facility] Comment on above: Result Comment: Canc elled via OM: Order cancelled - Patient discharged Performed By: #### L 100.0100, L500.2500 ####[facility] [address] [place], [address] HCT Normal 40-54 [facility] Comment on above: Result Comment: Canc elled via OM: Order cancelled - Patient discharged Performed By: #### L 100.0100, L500.2500 ####[facility] [address] [place], [address] HGB Normal 13.0-16.5 [facility] Comment on above: Result Comment: Canc elled via OM: Order cancelled - Patient discharged Performed By: #### L 100.0100, L500.2500 ####[facility] [address] [place], [address] MCH Normal 27.0-32.0 [facility] Comment on above: Result Comment: Canc elled via OM: Order cancelled - Patient discharged Performed By: #### L 100.0100, L500.2500 ####[facility] [address] [place], [address] MCHC Normal 32-36 [facility] Comment on above: Result Comment: Canc elled via OM: Order cancelled - Patient discharged Performed By: #### L 100.0100, L500.2500 ####[facility] [address] [place], [address] MCV Normal 80-94 [facility] Comment on above: Result Comment: Canc elled via OM: Order cancelled - Patient discharged Performed By: #### L 100.0100, L500.2500 ####[facility] [address] [place], [address] NEUT% Normal 47-70 [facility] Comment on above: Result Comment: Canc elled via OM: Order cancelled - Patient discharged Performed By: #### L 100.0100, L500.2500 ####[facility] [address] [place], [address] PLT Normal 150-450 [facility] Comment on above: Result Comment: Canc elled via OM: Order cancelled - Patient discharged Performed By: #### L 100.0100, L500.2500 ####[facility] [address] [place], [address] RBC Normal 4.6-6.2 [facility] Comment on above: Result Comment: Canc elled via OM: Order cancelled - Patient discharged Performed By: #### L 100.0100, L500.2500 ####[facility] [address] [place], [address] RDW CV Normal 11.6-14.6 [facility] Comment on above: Result Comment: Canc elled via OM: Order cancelled - Patient discharged Performed By: #### L 100.0100, L500.2500 ####[facility] [address] [place], [address] RDW SD Normal 35.1-43.9 [facility] Comment on above: Result Comment: Canc elled via OM: Order cancelled - Patient discharged Performed By: #### L 100.0100, L500.2500 ####[facility] [address] [place], [address] WBC Normal 4.4-11.0 [facility] Comment on above: Result Comment: Canc elled via OM: Order cancelled - Patient discharged Performed By: #### L 100.0100, L500.2500 ####[facility] [address] [place], [address] Absolute lymphocyte countOrd ered By: Deric Lantigua on 03-09-2025 Lymphocytes Auto (Unsp spec) [#/Vol] 0.53 10*3/uL Low 0.83-4.51 [facility] Absolute neutrophil countOrd ered By: Deric Lantigua on 03-09-2025 Neutrophils (Bld) [#/Vol] 4.0 10*3/uL 2.0-7.7 [facility] Anion gap in Serum or Plasma Ordered By: Dericford Lantigua on 03-09-2025 Anion gap [Moles/Vol] 10 mmol/L 5-15 [facility] Automated lymphocyte count a s percentage of total leukocytesOrdered By: Deric Lantigua on 03-09-2025 Lymphocytes/100 WBC Auto (Unsp spec) 9.7 % Low 19-41 [facility] BUN/creatinine ratioOrdered By: Deric Lantigua on 03-09-2025 Urea nitrogen/Creatinine [Mass ratio] 20.8 mg/mg High 10-20 [facility] Basic Metabolic Profile (BMP )on 03-09-2025 BUN/CRE 20.8 RATIO High 10-20 [facility] Comment on above: Performed By: #### L 100.0100, L500.2500 ####[facility] [address] [place], [address] Calcium [Mass/Vol] 9.0 mg/dL Normal 7.6-11.0 [facility] Comment on above: Performed By: #### L 100.0100, L500.2500 ####[facility] [address] [place], [address] Chloride [Moles/Vol] 101 mmol/L Normal 98-108 [facility] Comment on above: Performed By: #### L 100.0100, L500.2500 ####[facility] [address] [place], [address] CO2 [Moles/Vol] 26.6 mmol/L Normal 21.0-32.0 [facility] Comment on above: Performed By: #### L 100.0100, L500.2500 ####[facility] [address] [place], [address] Creatinine [Mass/Vol] 2.41 mg/dL High 0.70-1.20 [facility] Comment on above: Performed By: #### L 100.0100, L500.2500 ####[facility] [address] [place], [address] ECRCL 24.14 ml/min Low 50-250 [facility] Comment on above: Performed By: #### L 100.0100, L500.2500 ####[facility] [address] [place], [address] GAP 10 Normal 5-15 [facility] Comment on above: Performed By: #### L 100.0100, L500.2500 ####[facility] [address] [place], [address] GFR/1.73 sq M.predicted among non-blacks MDRD (S/P/Bld) [Vol rate/Area] 26 mL/min/{1.73_m2} Low >60 [facility] Comment on above: Result Comment: mL/m in/1.73m2 CKD-EPI Creatinine Equation (2020) Performed By: #### L 100.0100, L500.2500 ####[facility] [address] [place], [address] Glucose [Mass/Vol] 118 mg/dL High 70-99 [facility] Comment on above: Performed By: #### L 100.0100, L500.2500 ####[facility] [address] [place], [address] Potassium [Moles/Vol] 4.3 mmol/L Normal 3.3-5.1 [facility] Comment on above: Performed By: #### L 100.0100, L500.2500 ####[facility] [address] [place], [address] Sodium [Moles/Vol] 138 mmol/L Normal 133-145 [facility] Comment on above: Performed By: #### L 100.0100, L500.2500 ####[facility] [address] [place], [address] Urea nitrogen [Mass/Vol] 50 mg/dL High 4-19 [facility] Comment on above: Performed By: #### L 100.0100, L500.2500 ####[facility] [address] [place], [address] Basophil percentageOrdered B y: Deric Grzegorz on 03-09-2025 Basophils/100 WBC (Bld) 0.2 % 0-1 [facility] Bedside Glucoseon 03-09-2025 FINGERSTICK GLU 184 mg/dL High 74-106 [facility] Comment on above: Result Comment: OKDY GEMENT OF PATIENT CARE PER NURSING PROTOCOL Performed By: #### L 501.080 ####[facility] [address] [place], [address] FINGERSTICK GLU 112 mg/dL High 74-106 [facility] Comment on above: Result Comment: KODY GEMENT OF PATIENT CARE PER NURSING PROTOCOL Performed By: #### L 501.080 ####[facility] [address] [place], [address] CBC W/Diff, Automatedon 07-2 Absolute Lymph 0.53 X10 3/uL Low 0.83-4.51 [facility] Comment on above: Performed By: #### L 100.0100, L500.2500 ####[facility] [address] [place], [address] Absolute Neut 4.0 X10 3/uL Normal 2.0-7.7 [facility] Comment on above: Performed By: #### L 100.0100, L500.2500 ####[facility] [address] [place], [address] Basophils/100 WBC (Bld) 0.2 % Normal 0-1 [facility] Comment on above: Performed By: #### L 100.0100, L500.2500 ####[facility] [address] [place], [address] Eosinophils/100 WBC (Bld) 4.8 % Normal 0-5 [facility] Comment on above: Performed By: #### L 100.0100, L500.2500 ####[facility] [address] [place], [address] Erythrocyte distribution width (RBC) [Ratio] 16.3 % High 11.6-14.6 [facility] Comment on above: Performed By: #### L 100.0100, L500.2500 ####[facility] [address] [place], [address] Hematocrit (Bld) [Volume fraction] 29.6 % Low 40-54 [facility] Comment on above: Performed By: #### L 100.0100, L500.2500 ####[facility] [address] [place], [address] Hemoglobin (Bld) [Mass/Vol] 9.3 g/dL Low 13.0-16.5 [facility] Comment on above: Performed By: #### L 100.0100, L500.2500 ####[facility] [address] [place], [address] IG% 0.600 Normal 0.0-0.9 [facility] Comment on above: Result Comment: IG% - Immature Granulocytes (promyelocytes, myelocytes andmetamyelocytes) > 1% indicates that a LEFT SHIFT is Present. Performed By: #### L 100.0100, L500.2500 ####[facility] [address] [place], [address] Lymphocytes/100 WBC (Bld) 9.7 % Low 19-41 [facility] Comment on above: Performed By: #### L 100.0100, L500.2500 ####[facility] [address] [place], [address] MCH (RBC) [Entitic mass] 27.5 pg Normal 27.0-32.0 [facility] Comment on above: Performed By: #### L 100.0100, L500.2500 ####[facility] [address] [place], [address] MCHC (RBC) [Mass/Vol] 31.4 g/dL Low 32-36 [facility] Comment on above: Performed By: #### L 100.0100, L500.2500 ####[facility] [address] [place], [address] MCV (RBC) [Entitic vol] 87.6 fL Normal 80-94 [facility] Comment on above: Performed By: #### L 100.0100, L500.2500 ####[facility] [address] [place], [address] Monocytes/100 WBC (Bld) 12.1 % High 0-10 [facility] Comment on above: Performed By: #### L 100.0100, L500.2500 ####[facility] [address] [place], [address] Neutrophils/100 WBC (Bld) 72.6 % High 47-70 [facility] Comment on above: Performed By: #### L 100.0100, L500.2500 ####[facility] [address] [place], [address] Nucleated RBC (Bld) [#/Vol] 0 10*3/uL Normal 0-5 [facility] Comment on above: Performed By: #### L 100.0100, L500.2500 ####[facility] [address] [place], [address] Platelet mean volume (Bld) [Entitic vol] 10.0 fL Normal 6.2-12.0 [facility] Comment on above: Performed By: #### L 100.0100, L500.2500 ####[facility] [address] [place], [address] Platelets (Bld) [#/Vol] 162 10*3/uL Normal 150-450 [facility] Comment on above: Performed By: #### L 100.0100, L500.2500 ####[facility] [address] [place], [address] RBC (Bld) [#/Vol] 3.38 10*6/uL Low 4.6-6.2 [facility] Comment on above: Performed By: #### L 100.0100, L500.2500 ####[facility] [address] [place], [address] RDW SD 51.8 fl High 35.1-43.9 [facility] Comment on above: Performed By: #### L 100.0100, L500.2500 ####[facility] [address] [place], [address] WBC (Bld) [#/Vol] 5.5 10*3/uL Normal 4.4-11.0 [facility] Comment on above: Performed By: #### L 100.0100, L500.2500 ####[facility] [address] [place], [address] Carbon dioxide, total [Moles /volume] in Central venous bloodOrdered By: Deric Lantigua on 03-09-2025 CO2 [Moles/Vol] 26.6 mmol/L 21.0-32.0 [facility] Chloride assayOrdered By: Silvia Lantigua on 03-09-2025 Chloride [Moles/Vol] 101 mmol/L 98-108 [facility] Discharge Instructionon 07-2 Discharge Instruction Normal [facility] Eosinophil percentageOrdered By: Deric Lantigua on 03-09-2025 Eosinophils/100 WBC (Bld) 4.8 % 0-5 [facility] Erythrocyte distribution wid th ratioOrdered By: Deric Lantigua on 03-09-2025 Erythrocyte distribution width (RBC) [Ratio] 16.3 % High 11.6-14.6 [facility] Erythrocyte distribution wid th standard deviationOrdered By: Deric Lantigua on 03-09-2025 Erythrocyte distribution width (RBC) [Ratio] 51.8 fl High 35.1-43.9 [facility] Glomerular filtration rate ( GFR) estimation/1.73 sq m using serum, plasma, or whole bOrdered By: Deric Lantigua on 03-09-2025 GFR/1.73 sq M.predicted among non-blacks MDRD (S/P/Bld) [Vol rate/Area] 26 mL/min/{1.73_m2} Low >60 [facility] Comment on above: mL/min/1.73m2 CKD-EP I Creatinine Equation (2020) [facility] deOrdered By: Deric Lantigua on 03-09-2025 Glucose [Mass/Vol] 184 mg/dL High 74-106 [facility] Comment on above: MANAGEMENT OF PATIEN T CARE PER NURSING PROTOCOL Hematocrit Auto (Bld) [Volum e fraction]Ordered By: Deric Lantigua on 03-09-2025 Hematocrit (Bld) [Volume fraction] 29.6 % Low 40-54 [facility] Hemoglobin measurementOrdere d By: Deric Lantigua on 03-09-2025 Hemoglobin (Bld) [Mass/Vol] 9.3 g/dL Low 13.0-16.5 [facility] Immature granulocytes/100 WB C Auto (Bld)Ordered By: Deric Lantigua on 03-09-2025 Immature granulocytes/100 WBC (Bld) 0.600 % 0.0-0.9 [facility] Comment on above: IG% - Immature Granu locytes (promyelocytes, myelocytes and metamyelocytes) > 1% indicates that a LEFT SHIFT is Present. MCV (mean corpuscular volume ) determinationOrdered By: Deric Lantigua on 03-09-2025 MCV (RBC) [Entitic vol] 87.6 fL 80-94 [facility] Mean corpuscular hemoglobin (MCH) determinationOrdered By: Deric Lantigua on 03-09-2025 MCH (RBC) [Entitic mass] 27.5 pg 27.0-32.0 [facility] Mean corpuscular hemoglobin concentration (MCHC) determinationOrdered By: Deric Lantigua on 03-09-2025 MCHC (RBC) [Mass/Vol] 31.4 g/dL Low 32-36 [facility] Mean platelet volume determi nationOrdered By: Deric Lantigua on 03-09-2025 Platelet mean volume (Bld) [Entitic vol] 10.0 fL 6.2-12.0 [facility] Monocyte percentageOrdered B y: Deric Lantigua on 03-09-2025 Monocytes/100 WBC (Bld) 12.1 % High 0-10 [facility] Neutrophil percentageOrdered By: Deric Lantigua on 03-09-2025 Neutrophils/100 WBC (Bld) 72.6 % High 47-70 [facility] Nucleated red blood cell per centageOrdered By: Deric Lantigua on 03-09-2025 Nucleated RBC/100 WBC (Bld) [Ratio] 0 % 0-5 [facility] Platelet countOrdered By: Silvia Lantigua on 03-09-2025 Platelets (Bld) [#/Vol] 162 10*3/uL 150-450 [facility] Potassium measurement (mass/ volume)Ordered By: Deric Lantigua on 03-09-2025 Potassium (Unsp spec) [Mass/Vol] 4.3 mmol/L 3.3-5.1 [facility] RBC Auto (Bld) [#/Vol]Ordere d By: Deric Lantigua on 03-09-2025 RBC (Bld) [#/Vol] 3.38 10*6/uL Low 4.6-6.2 [facility] Serum creatinine measurement (mass/volume)Ordered By: Deric Lantigua on 03-09-2025 Creatinine [Mass/Vol] 2.41 mg/dL High 0.70-1.20 [facility] Serum glucose measurement (m ass/volume)Ordered By: Deric Lantigua on 03-09-2025 Glucose [Mass/Vol] 118 mg/dL High 70-99 [facility] Serum or plasma calcium [place] urement (mass/volume)Ordered By: Deric Lantigua on 03-09-2025 Calcium [Mass/Vol] 9.0 mg/dL 7.6-11.0 [facility] Serum or plasma urea nitroge n measurement (mass/volume)Ordered By: Deric Lantigua on 03-09-2025 Urea nitrogen [Mass/Vol] 50 mg/dL High 4-19 [facility] Sodium levelOrdered By: Mikki Lantigua on 03-09-2025 Sodium [Moles/Vol] 138 mmol/L 133-145 [facility] White blood cell (WBC) count Ordered By: Deric Lantigua on 03-09-2025 WBC (Bld) [#/Vol] 5.5 10*3/uL 4.4-11.0 [facility] Basic Metabolic Profile (BMP )on 03-08-2025 BUN/CRE 19.9 RATIO Normal 10-20 [facility] Comment on above: Performed By: #### L 500.2500 ####[facility] [address] [facility] [address] Calcium [Mass/Vol] 8.8 mg/dL Normal 7.6-11.0 [facility] Comment on above: Performed By: #### L 500.2500 ####[facility] [address] [place], [address] Chloride [Moles/Vol] 99 mmol/L Normal 98-108 [facility] Comment on above: Performed By: #### L 500.2500 ####[facility] [address] [facility] [address] CO2 [Moles/Vol] 27.0 mmol/L Normal 21.0-32.0 [facility] Comment on above: Performed By: #### L 500.2500 ####[facility] [address] [place], [address] Creatinine [Mass/Vol] 3.11 mg/dL High 0.70-1.20 [facility] Comment on above: Performed By: #### L 500.2500 ####[facility] [address] [place], [address] ECRCL 17.10 ml/min Low 50-250 [facility] Comment on above: Performed By: #### L 500.2500 ####[facility] [address] [place], [address] GAP 10 Normal 5-15 [facility] Comment on above: Performed By: #### L 500.2500 ####[facility] [address] [place], [address] GFR/1.73 sq M.predicted among non-blacks MDRD (S/P/Bld) [Vol rate/Area] 19 mL/min/{1.73_m2} Low >60 [facility] Comment on above: Result Comment: mL/m in/1.73m2 CKD-EPI Creatinine Equation (2020) Performed By: #### L 500.2500 ####[facility] [address] [place], [address] Glucose [Mass/Vol] 127 mg/dL High 70-99 [facility] Comment on above: Performed By: #### L 500.2500 ####[facility] [address] [place], [address] Potassium [Moles/Vol] 5.3 mmol/L High 3.3-5.1 [facility] Comment on above: Performed By: #### L 500.2500 ####[facility] [address] [place], [address] Sodium [Moles/Vol] 135 mmol/L Normal 133-145 [facility] Comment on above: Performed By: #### L 500.2500 ####[facility] [address] [place], [address] Urea nitrogen [Mass/Vol] 62 mg/dL High 4-19 [facility] Comment on above: Performed By: #### L 500.2500 ####[facility] [address] [place], [address] Bedside Glucoseon 03-08-2025 FINGERSTICK GLU 132 mg/dL High 74-106 [facility] Comment on above: Result Comment: KODY GEMENT OF PATIENT CARE PER NURSING PROTOCOL Performed By: #### L 501.080 ####[facility] [address] [place], [address] FINGERSTICK GLU 128 mg/dL High 74-106 [facility] Comment on above: Result Comment: KODY GEMENT OF PATIENT CARE PER NURSING PROTOCOL Performed By: #### L 501.080 ####[facility] [address] [place], [address] FINGERSTICK GLU 142 mg/dL High 74-106 [facility] Comment on above: Result Comment: KODY GEMENT OF PATIENT CARE PER NURSING PROTOCOL Performed By: #### L 501.080 ####[facility] [address] [place], [address] FINGERSTICK GLU 122 mg/dL High 74-106 [facility] Comment on above: Result Comment: KODY GEMENT OF PATIENT CARE PER NURSING PROTOCOL Performed By: #### L 501.080 ####[facility] [address] [place], [address] Magnesiumon 03-08-2025 Magnesium [Mass/Vol] 2.3 mg/dL High 1.5-2.2 [facility] Comment on above: Performed By: #### L 501.5200 ####[facility] [address] [place], [address] Magnesium measurement (mass/ volume)Ordered By: Nicola Madison on 03-08-2025 Magnesium (Unsp spec) [Mass/Vol] 2.3 mg/dL High 1.5-2.2 [facility] Potassiumon 03-08-2025 Potassium [Moles/Vol] 5.5 mmol/L High 3.3-5.1 [facility] Comment on above: Performed By: #### L 501.5600 ####[facility] [address] [place], [address] Basic Metabolic Profile (BMP )on 03-07-2025 BUN/CRE 18.2 RATIO Normal 10-20 [facility] Comment on above: Performed By: #### L 500.2500 ####[facility] [address] [place], [address] Calcium [Mass/Vol] 8.7 mg/dL Normal 7.6-11.0 [facility] Comment on above: Performed By: #### L 500.2500 ####[facility] [address] [place], [address] Chloride [Moles/Vol] 97 mmol/L Low 98-108 [facility] Comment on above: Performed By: #### L 500.2500 ####[facility] [address] [place], [address] CO2 [Moles/Vol] 26.3 mmol/L Normal 21.0-32.0 [facility] Comment on above: Performed By: #### L 500.2500 ####[facility] [address] [place], [address] Creatinine [Mass/Vol] 3.09 mg/dL High 0.70-1.20 [facility] Comment on above: Performed By: #### L 500.2500 ####[facility] [address] [place], [address] ECRCL 17.21 ml/min Low 50-250 [facility] Comment on above: Performed By: #### L 500.2500 ####[facility] [address] [place], [address] GAP 10 Normal 5-15 [facility] Comment on above: Performed By: #### L 500.2500 ####[facility] [facility] [address] [place], [address] GFR/1.73 sq M.predicted among non-blacks MDRD (S/P/Bld) [Vol rate/Area] 20 mL/min/{1.73_m2} Low >60 [facility] Comment on above: Result Comment: mL/m in/1.73m2 CKD-EPI Creatinine Equation (2020) Performed By: #### L 500.2500 ####[facility] [address] [place], [address] Glucose [Mass/Vol] 126 mg/dL High 70-99 [facility] Comment on above: Performed By: #### L 500.2500 ####[facility] [address] [place], [address] Potassium [Moles/Vol] 4.8 mmol/L Normal 3.3-5.1 [facility] Comment on above: Performed By: #### L 500.2500 ####[facility] [address] [place], [address] Sodium [Moles/Vol] 134 mmol/L Normal 133-145 [facility] Comment on above: Performed By: #### L 500.2500 ####[facility] [address] [place], [address] Urea nitrogen [Mass/Vol] 56 mg/dL High 4-19 [facility] Comment on above: Performed By: #### L 500.2500 ####[facility] [address] [place], [address] Bedside Glucoseon 03-07-2025 FINGERSTICK GLU 151 mg/dL High 74-106 [facility] Comment on above: Result Comment: KODY GEMENT OF PATIENT CARE PER NURSING PROTOCOL Performed By: #### L 501.080 ####[facility] [address] [place], [address] FINGERSTICK GLU 191 mg/dL High 74-106 [facility] Comment on above: Result Comment: KODY GEMENT OF PATIENT CARE PER NURSING PROTOCOL Performed By: #### L 501.080 ####[facility] [address] [place], [address] FINGERSTICK GLU 184 mg/dL High 74-106 [facility] Comment on above: Result Comment: KODY GEMENT OF PATIENT CARE PER NURSING PROTOCOL Performed By: #### L 501.080 ####[facility] [address] [place], [address] FINGERSTICK GLU 127 mg/dL High 74-106 [facility] Comment on above: Result Comment: KODY GEMENT OF PATIENT CARE PER NURSING PROTOCOL Performed By: #### L 501.080 ####[facility] [address] [place], [address] Urine Cultureon 03-07-2025 [facility] Comments: On UA samp le of 03/04 Culture exhibits no growth. Normal [facility] Comment on above: Performed By: #### M 100.2200 ####[facility] [address] [place], [address] Basic Metabolic Profile (BMP )on 03-06-2025 BUN/CRE 17.8 RATIO Normal 10-20 [facility] Comment on above: Performed By: #### L 500.2500, L501.2300 ####[facility] [address] [place], [address] Calcium [Mass/Vol] 9.1 mg/dL Normal 7.6-11.0 [facility] Comment on above: Performed By: #### L 500.2500, L501.2300 ####[facility] [address] [place], [address] Chloride [Moles/Vol] 99 mmol/L Normal 98-108 [facility] Comment on above: Performed By: #### L 500.2500, L501.2300 ####[facility] [address] [place], [address] CO2 [Moles/Vol] 31.2 mmol/L Normal 21.0-32.0 [facility] Comment on above: Performed By: #### L 500.2500, L501.2300 ####[facility] [address] [place], [address] Creatinine [Mass/Vol] 2.23 mg/dL High 0.70-1.20 [facility] Comment on above: Performed By: #### L 500.2500, L501.2300 ####[facility] [address] [place], [address] ECRCL 23.84 ml/min Low 50-250 [facility] Comment on above: Performed By: #### L 500.2500, L501.2300 ####[facility] [address] [place], [address] GAP 8 Normal 5-15 [facility] Comment on above: Performed By: #### L 500.2500, L501.2300 ####[facility] [address] [place], [address] GFR/1.73 sq M.predicted among non-blacks MDRD (S/P/Bld) [Vol rate/Area] 29 mL/min/{1.73_m2} Low >60 [facility] Comment on above: Result Comment: mL/m in/1.73m2 CKD-EPI Creatinine Equation (2020) Performed By: #### L 500.2500, L501.2300 ####[facility] [address] [place], [address] Glucose [Mass/Vol] 118 mg/dL High 70-99 [facility] Comment on above: Performed By: #### L 500.2500, L501.2300 ####[facility] [address] [place], [address] Potassium [Moles/Vol] 4.7 mmol/L Normal 3.3-5.1 [facility] Comment on above: Performed By: #### L 500.2500, L501.2300 ####[facility] [address] [place], [address] Sodium [Moles/Vol] 138 mmol/L Normal 133-145 [facility] Comment on above: Performed By: #### L 500.2500, L501.2300 ####[facility] [address] [place], [address] Urea nitrogen [Mass/Vol] 40 mg/dL High 4-19 [facility] Comment on above: Performed By: #### L 500.2500, L501.2300 ####[facility] [address] [place], [address] Bedside Glucoseon 03-06-2025 FINGERSTICK GLU 146 mg/dL High 74-106 [facility] Comment on above: Result Comment: KODY GEMENT OF PATIENT CARE PER NURSING PROTOCOL Performed By: #### L 501.080 ####[facility] [address] [place], [address] FINGERSTICK GLU 117 mg/dL High 74-106 [facility] Comment on above: Result Comment: KODY GEMENT OF PATIENT CARE PER NURSING PROTOCOL Performed By: #### L 501.080 ####[facility] [address] [place], [address] FINGERSTICK GLU 229 mg/dL High 74-106 [facility] Comment on above: Result Comment: KODY GEMENT OF PATIENT CARE PER NURSING PROTOCOL Performed By: #### L 501.080 ####[facility] [address] [place], [address] FINGERSTICK GLU 109 mg/dL High 74-106 [facility] Comment on above: Result Comment: KODY GEMENT OF PATIENT CARE PER NURSING PROTOCOL Performed By: #### L 501.080 ####[facility] [address] [place], [address] FINGERSTICK GLU 140 mg/dL High 74-106 [facility] Comment on above: Result Comment: KODY GEMENT OF PATIENT CARE PER NURSING PROTOCOL Performed By: #### L 501.080 ####[facility] [address] [place], [address] Consultation - Cardiologyon 03-06-2025 Consultation - Cardiology Normal [facility] Phosphoruson 03-06-2025 Phosphate [Mass/Vol] 3.9 mg/dL Normal 2.7-4.5 [facility] Comment on above: Performed By: #### L 500.2500, L501.2300 ####[facility] [address] [place], [address] Urine cultureOrdered By: Kavita Lantigua on 03-06-2025 Bacteria identified Cx Nom (U) Culture exhibits no growth. [facility] Bedside Glucoseon 03-05-2025 FINGERSTICK GLU 111 mg/dL High 74-106 [facility] Comment on above: Result Comment: KODY GEMENT OF PATIENT CARE PER NURSING PROTOCOL Performed By: #### L 501.080 ####[facility] [address] [place], [address] FINGERSTICK GLU 152 mg/dL High 74-106 [facility] Comment on above: Result Comment: KODY GEMENT OF PATIENT CARE PER NURSING PROTOCOL Performed By: #### L 501.080 ####[facility] [address] [place], [address] FINGERSTICK GLU 159 mg/dL High 74-106 [facility] Comment on above: Result Comment: KODY GEMENT OF PATIENT CARE PER NURSING PROTOCOL Performed By: #### L 501.080 ####[facility] [address] [place], [address] Bilirubin, totalOrdered By: Nicola Madison on 03-05-2025 Bilirubin [Mass/Vol] 0.46 mg/dL 0.00-1.30 [facility] CBC W/Diff, Automatedon 02-17 Absolute Lymph 0.72 X10 3/uL Low 0.83-4.51 [facility] Comment on above: Performed By: #### L 501.2300, L100.0100 ####[facility] [address] [place], [address] Absolute Neut 5.8 X10 3/uL Normal 2.0-7.7 [facility] Comment on above: Performed By: #### L 501.2300, L100.0100 ####[facility] [address] [place], [address] Basophils/100 WBC (Bld) 0.4 % Normal 0-1 [facility] Comment on above: Performed By: #### L 501.2300, L100.0100 ####[facility] [address] [place], [address] Eosinophils/100 WBC (Bld) 2.0 % Normal 0-5 [facility] Comment on above: Performed By: #### L 501.2300, L100.0100 ####[facility] [address] [place], [address] Erythrocyte distribution width (RBC) [Ratio] 16.6 % High 11.6-14.6 [facility] Comment on above: Performed By: #### L 501.2300, L100.0100 ####[facility] [address] [place], [address] Hematocrit (Bld) [Volume fraction] 30.1 % Low 40-54 [facility] Comment on above: Performed By: #### L 501.2300, L100.0100 ####[facility] [address] [place], [address] Hemoglobin (Bld) [Mass/Vol] 9.3 g/dL Low 13.0-16.5 [facility] Comment on above: Performed By: #### L 501.2300, L100.0100 ####[facility] [address] [place], [address] IG% 0.300 Normal 0.0-0.9 [facility] Comment on above: Result Comment: IG% - Immature Granulocytes (promyelocytes, myelocytes andmetamyelocytes) > 1% indicates that a LEFT SHIFT is Present. Performed By: #### L 501.2300, L100.0100 ####[facility] [address] [place], [address] Lymphocytes/100 WBC (Bld) 9.5 % Low 19-41 [facility] Comment on above: Performed By: #### L 501.2300, L100.0100 ####[facility] [address] [place], [address] MCH (RBC) [Entitic mass] 27.0 pg Normal 27.0-32.0 [facility] Comment on above: Performed By: #### L 501.2300, L100.0100 ####[facility] [address] [place], [address] MCHC (RBC) [Mass/Vol] 30.9 g/dL Low 32-36 [facility] Comment on above: Performed By: #### L 501.2300, L100.0100 ####[facility] [address] [place], [address] MCV (RBC) [Entitic vol] 87.5 fL Normal 80-94 [facility] Comment on above: Performed By: #### L 501.2300, L100.0100 ####[facility] [address] [place], [address] Monocytes/100 WBC (Bld) 11.4 % High 0-10 [facility] Comment on above: Performed By: #### L 501.2300, L100.0100 ####[facility] [address] [place], [address] Neutrophils/100 WBC (Bld) 76.4 % High 47-70 [facility] Comment on above: Performed By: #### L 501.2300, L100.0100 ####[facility] [address] [place], [address] Nucleated RBC (Bld) [#/Vol] 0 10*3/uL Normal 0-5 [facility] Comment on above: Performed By: #### L 501.2300, L100.0100 ####[facility] [address] [place], [address] Platelet mean volume (Bld) [Entitic vol] 10.7 fL Normal 6.2-12.0 [facility] Comment on above: Performed By: #### L 501.2300, L100.0100 ####[facility] [address] [place], [address] Platelets (Bld) [#/Vol] 181 10*3/uL Normal 150-450 [facility] Comment on above: Performed By: #### L 501.2300, L100.0100 ####[facility] [address] [place], [address] RBC (Bld) [#/Vol] 3.44 10*6/uL Low 4.6-6.2 [facility] Comment on above: Performed By: #### L 501.2300, L100.0100 ####[facility] [address] [place], [address] RDW SD 52.8 fl High 35.1-43.9 [facility] Comment on above: Performed By: #### L 501.2300, L100.0100 ####[facility] [address] [place], [address] WBC (Bld) [#/Vol] 7.6 10*3/uL Normal 4.4-11.0 [facility] Comment on above: Performed By: #### L 501.2300, L100.0100 ####[facility] [address] [place], [address] Calculated very low density lipoprotein (VLDL) cholesterol measurementOrdered By: Nicola Madison on 03-05-2025 Calculated very low density lipoprotein (VLDL) cholesterol measurement 16 mg/dL 5-40 [facility] Chest 1 View (Portable)on Chest 1 View (Portable) Normal [facility] Comprehensive Metabolic Prof ilon 03-05-2025 Albumin [Mass/Vol] 3.4 g/dL Normal 3.4-4.8 [facility] Comment on above: Performed By: #### L 500.4050, L503.7505, L500.4100 ####[facility] [address] [place], [address] Albumin/Globulin [Mass ratio] 0.9 {ratio} Normal 0.9-2.4 [facility] Comment on above: Performed By: #### L 500.4050, L503.7505, L500.4100 ####[facility] [address] [place], [address] ALK PHOS 75 U/L Normal 40-129 [facility] Comment on above: Performed By: #### L 500.4050, L503.7505, L500.4100 ####[facility] [address] [place], [address] ALT [Catalytic activity/Vol] 10 U/L Normal <=46 [facility] Comment on above: Performed By: #### L 500.4050, L503.7505, L500.4100 ####[facility] [address] [place], [address] AST [Catalytic activity/Vol] 15 U/L Normal <=37 [facility] Comment on above: Performed By: #### L 500.4050, L503.7505, L500.4100 ####[facility] [address] [place], [address] Bilirubin [Mass/Vol] 0.46 mg/dL Normal 0.00-1.30 [facility] Comment on above: Performed By: #### L 500.4050, L503.7505, L500.4100 ####[facility] [address] [place], [address] BUN/CRE 18.6 RATIO Normal 10-20 [facility] Comment on above: Performed By: #### L 500.4050, L503.7505, L500.4100 ####[facility] [address] [place], [address] Calcium [Mass/Vol] 9.1 mg/dL Normal 7.6-11.0 [facility] Comment on above: Performed By: #### L 500.4050, L503.7505, L500.4100 ####[facility] [address] [place], [address] Chloride [Moles/Vol] 101 mmol/L Normal 98-108 [facility] Comment on above: Performed By: #### L 500.4050, L503.7505, L500.4100 ####[facility] [address] [place], [address] CO2 [Moles/Vol] 27.2 mmol/L Normal 21.0-32.0 [facility] Comment on above: Performed By: #### L 500.4050, L503.7505, L500.4100 ####[facility] [address] [place], [address] Creatinine [Mass/Vol] 1.95 mg/dL High 0.70-1.20 [facility] Comment on above: Performed By: #### L 500.4050, L503.7505, L500.4100 ####[facility] [address] [place], [address] ECRCL 27.26 ml/min Low 50-250 [facility] Comment on above: Performed By: #### L 500.4050, L503.7505, L500.4100 ####[facility] [address] [place], [address] GAP 10 Normal 5-15 [facility] Comment on above: Performed By: #### L 500.4050, L503.7505, L500.4100 ####[facility] [address] [place], [address] GFR/1.73 sq M.predicted among non-blacks MDRD (S/P/Bld) [Vol rate/Area] 34 mL/min/{1.73_m2} Low >60 [facility] Comment on above: Result Comment: mL/m in/1.73m2 CKD-EPI Creatinine Equation (2020) Performed By: #### L 500.4050, L503.7505, L500.4100 ####[facility] [address] [place], [address] Globulin (S) [Mass/Vol] 3.9 g/dL Normal 2.2-4.2 [facility] Comment on above: Performed By: #### L 500.4050, L503.7505, L500.4100 ####[facility] [address] [place], [address] Glucose [Mass/Vol] 171 mg/dL High 70-99 [facility] Comment on above: Performed By: #### L 500.4050, L503.7505, L500.4100 ####[facility] [address] [place], [address] Potassium [Moles/Vol] 5.0 mmol/L Normal 3.3-5.1 [facility] Comment on above: Performed By: #### L 500.4050, L503.7505, L500.4100 ####[facility] [address] [place], [address] Sodium [Moles/Vol] 138 mmol/L Normal 133-145 [facility] Comment on above: Performed By: #### L 500.4050, L503.7505, L500.4100 ####[facility] [address] [place], [address] T PROT 7.3 g/dL Normal 5.9-8.4 [facility] Comment on above: Performed By: #### L 500.4050, L503.7505, L500.4100 ####[facility] [address] [place], [address] Urea nitrogen [Mass/Vol] 36 mg/dL High 4-19 [facility] Comment on above: Performed By: #### L 500.4050, L503.7505, L500.4100 ####[facility] [address] [place], [address] Echocardiogram study reportO rdered By: Marjorie Green on 03-05-2025 Study report [facility] [address] [place] [address] Echo Complete W/ Contrast 03/05/25 0941 MR#: [id number] Acct: [id number] Name: PEDRO HILLMAN Rep #:[id number] : 1945 80 From: Marjorie Green MD Attending Dr: Dr. Deric Lantigua MD Status: ADM IN Ordering Dr: Nicola Lindsey DO Date: 03/04/25 Location: [facility] Sex: M C Admitted: 03/04/25 Reason For [...] Ordering Physician: Nicola Lindsey Referring Physician: SCOTTY ELIZLADE Performed By: Haley Stevens and Student 03/05/25 1152 Date _ Marjorie Green MD CC: Dr. Nicola Lindsey DO; Dr. Tonio Fajardo DO; Dr. Deric Lantigua MD ~ Date Dictated: 03/05/25 0941 Date Transcribed: 03/05/25 1152 Geologist: Signed [facility] Work Phone: [phone] 03-05-2025 Natriuretic peptide B (Bld) [Mass/Vol] 4176 pg/mL High <=1800 [facility] Comment on above: Result Comment: Hear t Failure Unlikely: < 300 pg/mLHeart Failure Likely< 50 Years: > 450 pg/mL50-75 Years: > 900 pg/mL>75 Years: > 1800 pg/mL Performed By: #### L 500.4050, L503.7505, L500.4100 ####[facility] [address] [place], [place], [address] LDL calc ser/plasOrdered By: Nicola Madison on 03-05-2025 Cholesterol in LDL [Mass/Vol] 63 mg/dL [facility] Comment on above: Fhjxeazesn=104-470 m g/dL & Higher Mwus=388 mg/dL or greater Laboratory - Chemistry and C hemistry - challengeOrdered By: Nicola Madison on 03-05-2025 AST [Catalytic activity/Vol] 15 U/L <38 [facility] Lipid Profileon 03-05-2025 CHOL:HDL 3.04 Normal [facility] Comment on above: Performed By: #### L 500.4050, L503.7505, L500.4100 ####[facility] [address] [place], [address] Cholesterol [Mass/Vol] 117 mg/dL Normal <=[address] [facility] Comment on above: Result Comment: Chol esterol level, Desirable <200 mg/dLBorderline high cholesterol 200-239 mg/dLHigh cholesterol >=240 mg/dLRecommendations of the NCEP Adult Treatment Panel for thefollowing risk-cutoff thresholds for the [place] Americanpulation. Performed By: #### L 500.4050, L503.7505, L500.4100 ####[facility] [address] [place], [address] Cholesterol in HDL [Mass/Vol] 39 mg/dL Low [facility] Comment on above: Result Comment: Gia onal Cholesterol Education Program (NCEP) guidelines:<40 mg/dL: Low HDL-cholesterol (major risk factor for CHD)>= 60 mg/dL: High HDL-cholesterol (negative risk factor forCHD)HDL-cholesterol is affected by a number of factors, e.g.smoking, exercise, hormones, sex and age. Performed By: #### L 500.4050, L503.7505, L500.4100 ####[facility] [address] [place], [address] Cholesterol in LDL [Mass/Vol] 63 mg/dL Normal [facility] Comment on above: Result Comment: Bord sufevo=340-438 mg/dL Higher Wdms=297 mg/dL or greater Performed By: #### L 500.4050, L503.7505, L500.4100 ####[facility] [address] [place], [address] Cholesterol in VLDL [Mass/Vol] 16 mg/dL Normal 5-40 [facility] Comment on above: Performed By: #### L 500.4050, L503.7505, L500.4100 ####[facility] [address] [place], [address] Triglyceride [Mass/Vol] 79 mg/dL Normal [facility] Comment on above: Result Comment: The drugs N-Acetylcysteine and Metamizole may falselydepress this assay.Normal range: <150 mg/dLBorderline High: 150-199 mg/dLHigh: 200-499 mg/dLVery High: >500 mg/dL Performed By: #### L 500.4050, L503.7505, L500.4100 ####[facility] [address] [place], [address] Natriuretic peptide.B prohor girish N-Terminal [Mass/volume] in Serum or PlasmaOrdered By: Nicola Madison on 03-05-2025 Natriuretic peptide.B prohormone N-Terminal [Mass/Vol] 4176 pg/mL High <1800 [facility] Comment on above: Heart Failure Unlike ly: < 300 pg/mLHeart Failure Likely< 50 Years: > 450 pg/mL50-75 Years: > 900 pg/mL>75 Years: > 1800 pg/mL No Panel InformationOrdered By: Nicola Madison on 03-05-2025 15 U/L <38 [facility] Phosphoruson 03-05-2025 Phosphate [Mass/Vol] 3.3 mg/dL Normal 2.7-4.5 [facility] Comment on above: Performed By: #### L 501.2300, L100.0100 ####[facility] [address] [place], [address] Screening total cholesterol/ high density lipoprotein (HDL) cholesterol ratioOrdered By: Nicola Madison on 03-05-2025 Cholesterol.total/Choles terol in HDL [Mass ratio] 3.04 {ratio} [facility] Serum globulin measurementOr dered By: Nicola Madison on 03-05-2025 Globulin (S) [Mass/Vol] 3.9 g/dL 2.2-4.2 [facility] Serum or plasma alanine ortiz otransferase (ALT) measurementOrdered By: Nicola Madison on 03-05-2025 ALT [Catalytic activity/Vol] 10 U/L <47 [facility] Serum or plasma albumin kingsley urement (mass/volume)Ordered By: Nicola Madison on 03-05-2025 Albumin [Mass/Vol] 3.4 g/dL 3.4-4.8 [facility] Serum or plasma albumin/glob ulin mass ratioOrdered By: Nicola Madison on 03-05-2025 Albumin/Globulin [Mass ratio] 0.9 {ratio} 0.9-2.4 [facility] Serum or plasma alkaline roosevelt sphatase measurementOrdered By: Nicola Madison on 03-05-2025 ALP [Catalytic activity/Vol] 75 U/L 40-129 [facility] Serum or plasma cholesterol in HDL measurement (mass/volume)Ordered By: Nicola Madison on 03-05-2025 Cholesterol in HDL [Mass/Vol] 39 mg/dL Low >40 [facility] Comment on above: National Cholesterol Education Program (NCEP) guidelines:<40 mg/dL: Low HDL-cholesterol (major risk factor for CHD)>= 60 mg/dL: High HDL-cholesterol (negative risk factor for CHD)HDL-cholesterol is affected by a number of factors, e.g. smoking, exercise, hormones, sex and age. Serum or plasma cholesterol measurement (mass/volume)Ordered By: Nicola Madison on 03-05-2025 Cholesterol [Mass/Vol] 117 mg/dL <201 [facility] Comment on above: Cholesterol level, D esirable <200 mg/dLBorderline high cholesterol 200-239 mg/dLHigh cholesterol >=240 mg/dLRecommendations of the NCEP Adult Treatment Panel for the following risk-cutoff thresholds for the [place] population. Total proteinOrdered By: Jacob Madison on 03-05-2025 Protein [Mass/Vol] 7.3 g/dL 5.9-8.4 [facility] Triglycerides measurementOrd ered By: Nicola Madison on 03-05-2025 Triglyceride [Mass/Vol] 79 mg/dL <199 [facility] Comment on above: The drugs N-Acetylcy steine and Metamizole may falsely depress this assay. Normal range: <150 mg/dLBorderline High: 150-199 mg/dLHigh: 200-499 mg/dLVery High: >500 mg/dL Absolute lymphocyte countOrd ered By: Chris Ochoa on 03-04-2025 Lymphocytes Auto (Unsp spec) [#/Vol] 0.77 10*3/uL Low 0.83-4.51 [facility] Absolute neutrophil countOrd ered By: Chris Ochoa on 03-04-2025 Neutrophils (Bld) [#/Vol] 6.0 10*3/uL 2.0-7.7 [facility] Anion gap in Serum or Plasma Ordered By: Chris Ochoa on 03-04-2025 Anion gap [Moles/Vol] 8 mmol/L 5-15 [facility] Automated lymphocyte count a s percentage of total leukocytesOrdered By: Chris Ochoa on 03-04-2025 Lymphocytes/100 WBC Auto (Unsp spec) 10.1 % Low 19-41 [facility] BUN/creatinine ratioOrdered By: Chris Ochoa on 03-04-2025 Urea nitrogen/Creatinine [Mass ratio] 19.7 mg/mg - [facility] Basic Metabolic Profile (BMP )on 03-04-2025 BUN/CRE 19.7 RATIO Normal 06-08 [facility] Comment on above: Performed By: #### L 501.4021, L100.0100, L500.2500, L503.7505 ####[facility] [address] [place], [address] Calcium [Mass/Vol] 9.3 mg/dL Normal 7.6-11.0 [facility] Comment on above: Performed By: #### L 501.4021, L100.0100, L500.2500, L503.7505 ####[facility] [address] [place], [address] Chloride [Moles/Vol] 102 mmol/L Normal 98-108 [facility] Comment on above: Performed By: #### L 501.4021, L100.0100, L500.2500, L503.7505 ####[facility] [address] [place], [address] CO2 [Moles/Vol] 28.6 mmol/L Normal 21.0-32.0 [facility] Comment on above: Performed By: #### L 501.4021, L100.0100, L500.2500, L503.7505 ####[facility] [address] [place], [address] Creatinine [Mass/Vol] 1.86 mg/dL High 0.70-1.20 [facility] Comment on above: Performed By: #### L 501.4021, L100.0100, L500.2500, L503.7505 ####[facility] [address] [place], [address] ECRCL 28.58 ml/min Low 50-250 [facility] Comment on above: Performed By: #### L 501.4021, L100.0100, L500.2500, L503.7505 ####[facility] [address] [place], [address] GAP 8 Normal 5-15 [facility] Comment on above: Performed By: #### L 501.4021, L100.0100, L500.2500, L503.7505 ####[facility] [address] [place], [address] GFR/1.73 sq M.predicted among non-blacks MDRD (S/P/Bld) [Vol rate/Area] 36 mL/min/{1.73_m2} Low >60 [facility] Comment on above: Result Comment: mL/m in/1.73m2 CKD-EPI Creatinine Equation (2020) Performed By: #### L 501.4021, L100.0100, L500.2500, L503.7505 ####[facility] [address] [place], [address] Glucose [Mass/Vol] 124 mg/dL High 70-99 [facility] Comment on above: Performed By: #### L 501.4021, L100.0100, L500.2500, L503.7505 ####[facility] [address] [place], [address] Potassium [Moles/Vol] 5.2 mmol/L High 3.3-5.1 [facility] Comment on above: Performed By: #### L 501.4021, L100.0100, L500.2500, L503.7505 ####[facility] [address] [place], [address] Sodium [Moles/Vol] 138 mmol/L Normal 133-145 [facility] Comment on above: Performed By: #### L 501.4021, L100.0100, L500.2500, L503.7505 ####[facility] [address] [place], [address] Urea nitrogen [Mass/Vol] 37 mg/dL High 4-19 [facility] Comment on above: Performed By: #### L 501.4021, L100.0100, L500.2500, L503.7505 ####[facility] [address] [place], [address] Basophil percentageOrdered B y: Chris Ochoa on 03-04-2025 Basophils/100 WBC (Bld) 0.4 % 0-1 [facility] Bedside Glucoseon 03-04-2025 FINGERSTICK GLU 80 mg/dL Normal 74-106 [facility] Comment on above: Result Comment: KODY STRONG OF PATIENT CARE PER NURSING PROTOCOL Performed By: #### L 501.080 ####[facility] [address] [place], [address] Bilirubin Test strip Ql (U)O rdered By: Nicola Madison on 03-04-2025 Bilirubin Ql (U) Negative Negative [facility] CBC W/Diff, Automatedon 02-17 Absolute Lymph 0.77 X10 3/uL Low 0.83-4.51 [facility] Comment on above: Performed By: #### L 501.4021, L100.0100, L500.2500, L503.7505 ####[facility] [address] [place], [address] Absolute Neut 6.0 X10 3/uL Normal 2.0-7.7 [facility] Comment on above: Performed By: #### L 501.4021, L100.0100, L500.2500, L503.7505 ####[facility] [address] [place], [address] Basophils/100 WBC (Bld) 0.4 % Normal 0-1 [facility] Comment on above: Performed By: #### L 501.4021, L100.0100, L500.2500, L503.7505 ####[facility] [address] [place], [address] Eosinophils/100 WBC (Bld) 1.6 % Normal 0-5 [facility] Comment on above: Performed By: #### L 501.4021, L100.0100, L500.2500, L503.7505 ####[facility] [address] [place], [address] Erythrocyte distribution width (RBC) [Ratio] 16.5 % High 11.6-14.6 [facility] Comment on above: Performed By: #### L 501.4021, L100.0100, L500.2500, L503.7505 ####[facility] [address] [place], [address] Hematocrit (Bld) [Volume fraction] 33.4 % Low 40-54 [facility] Comment on above: Performed By: #### L 501.4021, L100.0100, L500.2500, L503.7505 ####[facility] [address] [place], [address] Hemoglobin (Bld) [Mass/Vol] 10.1 g/dL Low 13.0-16.5 [facility] Comment on above: Performed By: #### L 501.4021, L100.0100, L500.2500, L503.7505 ####[facility] [address] [place], [address] IG% 0.700 Normal 0.0-0.9 [facility] Comment on above: Result Comment: IG% - Immature Granulocytes (promyelocytes, myelocytes andmetamyelocytes) > 1% indicates that a LEFT SHIFT is Present. Performed By: #### L 501.4021, L100.0100, L500.2500, L503.7505 ####[facility] [address] [place], [address] Lymphocytes/100 WBC (Bld) 10.1 % Low 19-41 [facility] Comment on above: Performed By: #### L 501.4021, L100.0100, L500.2500, L503.7505 ####[facility] [address] [place], [address] MCH (RBC) [Entitic mass] 27.0 pg Normal 27.0-32.0 [facility] Comment on above: Performed By: #### L 501.4021, L100.0100, L500.2500, L503.7505 ####[facility] [address] [place], [address] MCHC (RBC) [Mass/Vol] 30.2 g/dL Low 32-36 [facility] Comment on above: Performed By: #### L 501.4021, L100.0100, L500.2500, L503.7505 ####[facility] [address] [place], [address] MCV (RBC) [Entitic vol] 89.3 fL Normal 80-94 [facility] Comment on above: Performed By: #### L 501.4021, L100.0100, L500.2500, L503.7505 ####[facility] [address] [place], [address] Monocytes/100 WBC (Bld) 9.1 % Normal 0-10 [facility] Comment on above: Performed By: #### L 501.4021, L100.0100, L500.2500, L503.7505 ####[facility] [address] [place], [address] Neutrophils/100 WBC (Bld) 78.1 % High 47-70 [facility] Comment on above: Performed By: #### L 501.4021, L100.0100, L500.2500, L503.7505 ####[facility] [address] [place], [address] Nucleated RBC (Bld) [#/Vol] 0 10*3/uL Normal 0-5 [facility] Comment on above: Performed By: #### L 501.4021, L100.0100, L500.2500, L503.7505 ####[facility] [address] [place], [address] Platelet mean volume (Bld) [Entitic vol] 10.2 fL Normal 6.2-12.0 [facility] Comment on above: Performed By: #### L 501.4021, L100.0100, L500.2500, L503.7505 ####[facility] [address] [place], [address] Platelets (Bld) [#/Vol] 189 10*3/uL Normal 150-450 [facility] Comment on above: Performed By: #### L 501.4021, L100.0100, L500.2500, L503.7505 ####[facility] [address] [place], [address] RBC (Bld) [#/Vol] 3.74 10*6/uL Low 4.6-6.2 [facility] Comment on above: Performed By: #### L 501.4021, L100.0100, L500.2500, L503.7505 ####[facility] [address] [place], [address] RDW SD 54.2 fl High 35.1-43.9 [facility] Comment on above: Performed By: #### L 501.4021, L100.0100, L500.2500, L503.7505 ####[facility] [address] [place], [address] WBC (Bld) [#/Vol] 7.6 10*3/uL Normal 4.4-11.0 [facility] Comment on above: Performed By: #### L 501.4021, L100.0100, L500.2500, L503.7505 ####[facility] [address] [place], [place], [address] Carbon dioxide, total [Moles /volume] in Central venous bloodOrdered By: Chris Ochoa on 03-04-2025 CO2 [Moles/Vol] 28.6 mmol/L 21.0-32.0 [facility] Chest PA and Lateralon 03-04 Chest PA and Lateral Normal [facility] Chloride assayOrdered By: Chino Ochoa on 03-04-2025 Chloride [Moles/Vol] 102 mmol/L 98-108 [facility] Echo Complete W/ Contraston 03-04-2025 Echo Complete W/ Contrast Normal [facility] Emergency Department Summary on 03-04-2025 Emergency Department Summary Normal [facility] Eosinophil percentageOrdered By: Chris Ochoa on 03-04-2025 Eosinophils/100 WBC (Bld) 1.6 % 0-5 [facility] Erythrocyte distribution wid th ratioOrdered By: Chris Ochoa on 03-04-2025 Erythrocyte distribution width (RBC) [Ratio] 16.5 % High 11.6-14.6 [facility] Erythrocyte distribution wid th standard deviationOrdered By: Chris Ochoa on 03-04-2025 Erythrocyte distribution width (RBC) [Ratio] 54.2 fl High 35.1-43.9 [facility] Glomerular filtration rate ( GFR) estimation/1.73 sq m using serum, plasma, or whole bOrdered By: Chris Ochoa on 03-04-2025 GFR/1.73 sq M.predicted among non-blacks MDRD (S/P/Bld) [Vol rate/Area] 36 mL/min/{1.73_m2} Low >60 [facility] Comment on above: mL/min/1.73m2 CKD-EP I Creatinine Equation (2020) H AND P Exam - [place] 03-04-2025 H&P Exam - Hospitalist Normal [facility] Hematocrit Auto (Bld) [Volum e fraction]Ordered By: Chris Ochoa on 03-04-2025 Hematocrit (Bld) [Volume fraction] 33.4 % Low 40-54 [facility] Hemoglobin A1con 03-04-2025 HbA1c (Bld) [Mass fraction] 6.3 % High <=5.6 [facility] Comment on above: Result Comment: Norm al < 5.7 % Prediabetic 5.7 - 6.4 % Diabetic >or= 6.5 % Please note range changes. Performed By: #### L 501.5200, L501.9985, L501.9520 ####[facility] [address] [place], [address] Hemoglobin A1c percentageOrd ered By: Nicola Madison on 03-04-2025 HbA1c (Bld) [Mass fraction] 6.3 % High <5.7 [facility] Comment on above: Normal < 5.7 % Predi abetic 5.7 - 6.4 % Diabetic >or= 6.5 % Please note range changes. Hemoglobin measurementOrdere d By: Chris Ochoa on 03-04-2025 Hemoglobin (Bld) [Mass/Vol] 10.1 g/dL Low 13.0-16.5 [facility] Immature granulocytes/100 WB C Auto (Bld)Ordered By: Chris Ochoa on 03-04-2025 Immature granulocytes/100 WBC (Bld) 0.700 % 0.0-0.9 [facility] Comment on above: IG% - Immature Granu locytes (promyelocytes, myelocytes and metamyelocytes) > 1% indicates that a LEFT SHIFT is Present. Ketones Test strip Ql (U)Ord ered By: Nicola Madison on 03-04-2025 Ketones Ql (U) Negative Negative [facility] L499.0042on 03-04-2025 Trop T High Sen 45 ng/L High <=22 [facility] Comment on above: Performed By: #### L 499.0042 ####[facility] [address], [address] L499.0043on 03-04-2025 Trop T High Sen 42 ng/L High <=22 [facility] Comment on above: Performed By: #### L 499.0043 ####[facility] [address], [address] L501.4021on 03-04-2025 Trop T High Sen 44 ng/L High <=22 [facility] Comment on above: Performed By: #### L 501.4021, L100.0100, L500.2500, L503.7505 ####[facility] [address] [place], [address] L503.7505on 03-04-2025 Natriuretic peptide B (Bld) [Mass/Vol] 3316 pg/mL High <=1800 [facility] Comment on above: Result Comment: Hear t Failure Unlikely: < 300 pg/mLHeart Failure Likely< 50 Years: > 450 pg/mL50-75 Years: > 900 pg/mL>75 Years: > 1800 pg/mL Performed By: #### L 501.4021, L100.0100, L500.2500, L503.7505 ####[facility] [address], [address] MCV (mean corpuscular volume ) determinationOrdered By: Chris Ochoa on 03-04-2025 MCV (RBC) [Entitic vol] 89.3 fL 80-94 [facility] Magnesiumon 03-04-2025 Magnesium [Mass/Vol] 2.0 mg/dL Normal 1.5-2.2 [facility] Comment on above: Performed By: #### L 501.5200, L501.9985, L501.9520 ####[facility] [address] [place], [address] Mean corpuscular hemoglobin (MCH) determinationOrdered By: Chris Ochoa on 03-04-2025 MCH (RBC) [Entitic mass] 27.0 pg 27.0-32.0 [facility] Mean corpuscular hemoglobin concentration (MCHC) determinationOrdered By: Chirs Ochoa on 03-04-2025 MCHC (RBC) [Mass/Vol] 30.2 g/dL Low 32-36 [facility] Mean platelet volume determi nationOrdered By: Chris Ochoa on 03-04-2025 Platelet mean volume (Bld) [Entitic vol] 10.2 fL 6.2-12.0 [facility] Microscopic analysis of urin e for red blood cells (RBC)Ordered By: Nicola Madison on 03-04-2025 Microscopic analysis of urine for red blood cells (RBC) 5-10 SEEN /hpf 0-5 [facility] Monocyte percentageOrdered B y: Chris Ochoa on 03-04-2025 Monocytes/100 WBC (Bld) 9.1 % 0-10 [facility] Mucus LM Ql (Urine sed)Order ed By: Nicola Madison on 03-04-2025 Mucus Ql (Urine sed) 0 SEEN /hpf [facility] Natriuretic peptide.B prohor girish N-Terminal [Mass/volume] in Serum or PlasmaOrdered By: Chris Ochoa on 03-04-2025 Natriuretic peptide.B prohormone N-Terminal [Mass/Vol] 3316 pg/mL High <1800 [facility] Comment on above: Heart Failure Unlike ly: < 300 pg/mLHeart Failure Likely< 50 Years: > 450 pg/mL50-75 Years: > 900 pg/mL>75 Years: > 1800 pg/mL Neutrophil percentageOrdered By: Chris Ochoa on 03-04-2025 Neutrophils/100 WBC (Bld) 78.1 % High 47-70 [facility] Nitrite Test strip Ql (U)Ord ered By: Nicola Madison on 03-04-2025 Nitrite Ql (U) Positive High Negative [facility] Nucleated red blood cell per centageOrdered By: Chris Ochoa on 03-04-2025 Nucleated RBC/100 WBC (Bld) [Ratio] 0 % 0-5 [facility] Platelet countOrdered By: Chino Ochoa on 03-04-2025 Platelets (Bld) [#/Vol] 189 10*3/uL 150-450 [facility] Potassium measurement (mass/ volume)Ordered By: Chris Ochoa on 03-04-2025 Potassium (Unsp spec) [Mass/Vol] 5.2 mmol/L High 3.3-5.1 [facility] Protein Test strip Ql (U)Ord ered By: Nicola Madison on 03-04-2025 Protein Ql (U) 100 mg/dl High Negative [facility] RBC Auto (Bld) [#/Vol]Ordere d By: Chris Ochoa on 03-04-2025 RBC (Bld) [#/Vol] 3.74 10*6/uL Low 4.6-6.2 [facility] Serum creatinine measurement (mass/volume)Ordered By: Chris Ochoa on 03-04-2025 Creatinine [Mass/Vol] 1.86 mg/dL High 0.70-1.20 [facility] Serum glucose measurement (m ass/volume)Ordered By: Chris Ochoa on 03-04-2025 Glucose [Mass/Vol] 124 mg/dL High 70-99 [facility] Serum or plasma calcium kings[place] urement (mass/volume)Ordered By: Chris Ochoa on 03-04-2025 Calcium [Mass/Vol] 9.3 mg/dL 7.6-11.0 [facility] Serum or plasma urea nitroge n measurement (mass/volume)Ordered By: Chris Ochoa on 03-04-2025 Urea nitrogen [Mass/Vol] 37 mg/dL High 4-19 [facility] Sodium levelOrdered By: Chris Ochoa on 03-04-2025 Sodium [Moles/Vol] 138 mmol/L 133-145 [facility] Squamous epithelial cells de tection in urine sediment by light microscopyOrdered By: Nicola Madison on 03-04-2025 Epithelial cells.squamous LM Ql (Urine sed) 0 SEEN /hpf 0-5 [facility] TSH DL <= 0.005 mIU/L QnOrde red By: Nicola Madison on 03-04-2025 TSH Qn 3.780 uIU/mL 0.300-4.20 0 [facility] Thyroid Stim Hormone (TSH)on 03-04-2025 TSH 3.780 uIU/mL Normal 0.300-4.20 0 [facility] Comment on above: Performed By: #### L 501.5200, L501.9985, L501.9520 ####[facility] [address] [place], [address] Troponin T.cardiac [Mass/vol ume] in Serum or Plasma by High sensitivity methodOrdered By: Chris Ochoa on 03-04-2025 Troponin T.cardiac High sensitivity method [Mass/Vol] 42 ng/L High <22 [facility] Troponin T.cardiac High sensitivity method [Mass/Vol] 45 ng/L High <22 [facility] Troponin T.cardiac High sensitivity method [Mass/Vol] 44 ng/L High <22 [facility] Urinalysis, Completeon 03-04 RBC 5-10 SEEN Normal 0-5 [facility] Comment on above: Order Comment: CLEAN CATCH Performed By: #### L 400.0001 ####[facility] [address] [place], [address] BACTERIA 2+ /hpf Normal None Seen [facility] Comment on above: Order Comment: CLEAN CATCH Performed By: #### L 400.0001 ####[facility] [address] [place], [address] WBC >100 SEEN Normal 0-5 [facility] Comment on above: Order Comment: CLEAN CATCH Performed By: #### L 400.0001 ####[facility] [address] [place], [address] EPI,SQUAMOUS 0 SEEN Normal 0-5 [facility] Comment on above: Order Comment: CLEAN CATCH Performed By: #### L 400.0001 ####[facility] [address] [place], [address] Mucus Ql (Urine sed) 0 SEEN Normal [facility] Comment on above: Order Comment: CLEAN CATCH Performed By: #### L 400.0001 ####[facility] [address] [place], [address] Urine clarityOrdered By: Jacob Madison on 03-04-2025 Clarity (U) Cloudy Clear [facility] Urine color determinationOrd ered By: Nicola Madison on 03-04-2025 Color (U) Yellow Yellow [facility] Urine glucose detectionOrder ed By: Nicola Madison on 03-04-2025 Glucose Ql (U) Normal mg/dl Normal [facility] Urine leukocyte esterase det ection by dipstickOrdered By: Nicola Madison on 03-04-2025 Leukocyte esterase Test strip Ql (U) 500 /ul High Negative [facility] Urine pHOrdered By: Nicola stack on 03-04-2025 pH (U) 6.5 [pH] 5.0 - 8.0 [facility] Urine sediment bacteria coun t by microscopy (number/high power field)Ordered By: Nicola Madison on 03-04-2025 Bacteria LM.HPF (Urine sed) [#/Area] 2 /[HPF] None Seen [facility] Urine specific gravity measu rementOrdered By: Nicola Madison on 03-04-2025 Specific gravity (U) [Rel density] 1.010 1.002-1.03 0 [facility] Urine urobilinogen measureme ntOrdered By: Nicola Madison on 03-04-2025 Urobilinogen Ql (U) Normal mg/dl Normal [facility] White blood cell (WBC) count Ordered By: Chris Ochoa on 03-04-2025 WBC (Bld) [#/Vol] 7.6 10*3/uL 4.4-11.0 [facility] White blood cell countOrdere d By: Nicola Madison on 03-04-2025 White blood cell count >100 SEEN /hpf 0-5 [facility] Absolute lymphocyte countOrd ered By: Russ Zamora on 11-06-2024 Lymphocytes Auto (Unsp spec) [#/Vol] 0.82 10*3/uL Low 0.83-4.51 [facility] Absolute neutrophil countOrd ered By: Russ Zamora on 11-06-2024 Neutrophils (Bld) [#/Vol] 8.1 10*3/uL High 2.0-7.7 [facility] Anion gap in Serum or Plasma Ordered By: Russ Zamora on 11-06-2024 Anion gap [Moles/Vol] 10 mmol/L 5-15 [facility] Automated lymphocyte count a s percentage of total leukocytesOrdered By: Russ Zamora on 11-06-2024 Lymphocytes/100 WBC Auto (Unsp spec) 8.1 % Low 19-41 [facility] BUN/creatinine ratioOrdered By: Russ Zamora on 11-06-2024 Urea nitrogen/Creatinine [Mass ratio] 19.3 mg/mg 10-20 [facility] Basophil percentageOrdered B y: Russ Zamora on 11-06-2024 Basophils/100 WBC (Bld) 0.3 % 0-1 [facility] Bilirubin, totalOrdered By: Russ Zamora on 11-06-2024 Bilirubin [Mass/Vol] 0.46 mg/dL 0.00-1.30 [facility] CBC W/Diff, Automatedon 10-19-2024 Absolute Lymph 0.82 X10 3/uL Low 0.83-4.51 [facility] Comment on above: Performed By: #### L 500.4050, L504.2610, L100.0100 ####[facility] [address] [place], [address] Absolute Neut 8.1 X10 3/uL High 2.0-7.7 [facility] Comment on above: Performed By: #### L 500.4050, L504.2610, L100.0100 ####[facility] [address] [place], [address] Basophils/100 WBC (Bld) 0.3 % Normal 0-1 [facility] Comment on above: Performed By: #### L 500.4050, L504.2610, L100.0100 ####[facility] [address] [place], [address] Eosinophils/100 WBC (Bld) 1.7 % Normal 0-5 [facility] Comment on above: Performed By: #### L 500.4050, L504.2610, L100.0100 ####[facility] [address] [place], [address] Erythrocyte distribution width (RBC) [Ratio] 16.8 % High 11.6-14.6 [facility] Comment on above: Performed By: #### L 500.4050, L504.2610, L100.0100 ####[facility] [address] [place], [address] Hematocrit (Bld) [Volume fraction] 34.2 % Low 40-54 [facility] Comment on above: Performed By: #### L 500.4050, L504.2610, L100.0100 ####[facility] [address] [place], [address] Hemoglobin (Bld) [Mass/Vol] 10.7 g/dL Low 13.0-16.5 [facility] Comment on above: Performed By: #### L 500.4050, L504.2610, L100.0100 ####[facility] [address] [place], [address] IG% 0.500 Normal 0.0-0.9 [facility] Comment on above: Result Comment: IG% - Immature Granulocytes (promyelocytes, myelocytes andmetamyelocytes) > 1% indicates that a LEFT SHIFT is Present. Performed By: #### L 500.4050, L504.2610, L100.0100 ####[facility] [address] [place], [address] Lymphocytes/100 WBC (Bld) 8.1 % Low 19-41 [facility] Comment on above: Performed By: #### L 500.4050, L504.2610, L100.0100 ####[facility] [address] [place], [address] MCH (RBC) [Entitic mass] 27.4 pg Normal 27.0-32.0 [facility] Comment on above: Performed By: #### L 500.4050, L504.2610, L100.0100 ####[facility] [address] [place], [address] MCHC (RBC) [Mass/Vol] 31.3 g/dL Low 32-36 [facility] Comment on above: Performed By: #### L 500.4050, L504.2610, L100.0100 ####[facility] [address] [place], [address] MCV (RBC) [Entitic vol] 87.5 fL Normal 80-94 [facility] Comment on above: Performed By: #### L 500.4050, L504.2610, L100.0100 ####[facility] [address] [place], [address] Monocytes/100 WBC (Bld) 8.8 % Normal 0-10 [facility] Comment on above: Performed By: #### L 500.4050, L504.2610, L100.0100 ####[facility] [address] [place], [address] Neutrophils/100 WBC (Bld) 80.6 % High 47-70 [facility] Comment on above: Performed By: #### L 500.4050, L504.2610, L100.0100 ####[facility] [address] [place], [address] Nucleated RBC (Bld) [#/Vol] 0 10*3/uL Normal 0-5 [facility] Comment on above: Performed By: #### L 500.4050, L504.2610, L100.0100 ####[facility] [address] [place], [address] Platelet mean volume (Bld) [Entitic vol] 10.4 fL Normal 6.2-12.0 [facility] Comment on above: Performed By: #### L 500.4050, L504.2610, L100.0100 ####[facility] [address] [place], [address] Platelets (Bld) [#/Vol] 212 10*3/uL Normal 150-450 [facility] Comment on above: Performed By: #### L 500.4050, L504.2610, L100.0100 ####[facility] [address] [place], [address] RBC (Bld) [#/Vol] 3.91 10*6/uL Low 4.6-6.2 [facility] Comment on above: Performed By: #### L 500.4050, L504.2610, L100.0100 ####[facility] [address] [place], [address] RDW SD 53.5 fl High 35.1-43.9 [facility] Comment on above: Performed By: #### L 500.4050, L504.2610, L100.0100 ####[facility] [address] [place], [address] WBC (Bld) [#/Vol] 10.1 10*3/uL Normal 4.4-11.0 [facility] Comment on above: Performed By: #### L 500.4050, L504.2610, L100.0100 ####[facility] [address] [place], [address] Carbon dioxide, total [Moles /volume] in Central venous bloodOrdered By: Russ Zamora on 11-06-2024 CO2 [Moles/Vol] 25.2 mmol/L 21.0-32.0 [facility] Chloride assayOrdered By: Flores Zamora on 11-06-2024 Chloride [Moles/Vol] 105 mmol/L 98-108 [facility] Comprehensive Metabolic Prof ilon 11-06-2024 Albumin [Mass/Vol] 3.8 g/dL Normal 3.4-4.8 [facility] Comment on above: Performed By: #### L 500.4050, L504.2610, L100.0100 ####[facility] [address] [place], [address] Albumin/Globulin [Mass ratio] 0.9 {ratio} Normal 0.9-2.4 [facility] Comment on above: Performed By: #### L 500.4050, L504.2610, L100.0100 ####[facility] [address] [place], [address] ALK PHOS 72 U/L Normal 40-129 [facility] Comment on above: Performed By: #### L 500.4050, L504.2610, L100.0100 ####[facility] [address] [place], [address] ALT [Catalytic activity/Vol] 10 U/L Normal <=46 [facility] Comment on above: Performed By: #### L 500.4050, L504.2610, L100.0100 ####[facility] [address] [place], [address] AST [Catalytic activity/Vol] 16 U/L Normal <=37 [facility] Comment on above: Performed By: #### L 500.4050, L504.2610, L100.0100 ####[facility] [address] [place], [address] Bilirubin [Mass/Vol] 0.46 mg/dL Normal 0.00-1.30 [facility] Comment on above: Performed By: #### L 500.4050, L504.2610, L100.0100 ####[facility] [address] [place], [address] BUN/CRE 19.3 RATIO Normal 10-20 [facility] Comment on above: Performed By: #### L 500.4050, L504.2610, L100.0100 ####[facility] [address] [place], [address] Calcium [Mass/Vol] 9.1 mg/dL Normal 7.6-11.0 [facility] Comment on above: Performed By: #### L 500.4050, L504.2610, L100.0100 ####[facility] [address] [place], [address] Chloride [Moles/Vol] 105 mmol/L Normal 98-108 [facility] Comment on above: Performed By: #### L 500.4050, L504.2610, L100.0100 ####[facility] [address] [place], [address] CO2 [Moles/Vol] 25.2 mmol/L Normal 21.0-32.0 [facility] Comment on above: Performed By: #### L 500.4050, L504.2610, L100.0100 ####[facility] [address] [place], [address] Creatinine [Mass/Vol] 1.87 mg/dL High 0.70-1.20 [facility] Comment on above: Performed By: #### L 500.4050, L504.2610, L100.0100 ####[facility] [address] [place], [address] ECRCL 32.00 ml/min Low 50-250 [facility] Comment on above: Performed By: #### L 500.4050, L504.2610, L100.0100 ####[facility] [address] [place], [address] GAP 10 Normal 5-15 [facility] Comment on above: Performed By: #### L 500.4050, L504.2610, L100.0100 ####[facility] [address] [place], [address] GFR/1.73 sq M.predicted among non-blacks MDRD (S/P/Bld) [Vol rate/Area] 36 mL/min/{1.73_m2} Low >60 [facility] Comment on above: Result Comment: mL/m in/1.73m2 CKD-EPI Creatinine Equation (2020) Performed By: #### L 500.4050, L504.2610, L100.0100 ####[facility] [address] [place], [address] Globulin (S) [Mass/Vol] 4.1 g/dL Normal 2.2-4.2 [facility] Comment on above: Performed By: #### L 500.4050, L504.2610, L100.0100 ####[facility] [address] [place], [address] Glucose [Mass/Vol] 132 mg/dL High 70-99 [facility] Comment on above: Performed By: #### L 500.4050, L504.2610, L100.0100 ####[facility] [address] [place], [address] Potassium [Moles/Vol] 4.8 mmol/L Normal 3.3-5.1 [facility] Comment on above: Performed By: #### L 500.4050, L504.2610, L100.0100 ####[facility] [address] [place], [address] Sodium [Moles/Vol] 140 mmol/L Normal 133-145 [facility] Comment on above: Performed By: #### L 500.4050, L504.2610, L100.0100 ####[facility] [address] [place], [address] T PROT 7.9 g/dL Normal 5.9-8.4 [facility] Comment on above: Performed By: #### L 500.4050, L504.2610, L100.0100 ####[facility] [address] [place], [address] Urea nitrogen [Mass/Vol] 36 mg/dL High 4-19 [facility] Comment on above: Performed By: #### L 500.4050, L504.2610, L100.0100 ####[facility] [address] [place], [address] Eosinophil percentageOrdered By: Russ Zamora on 11-06-2024 Eosinophils/100 WBC (Bld) 1.7 % 0-5 [facility] Erythrocyte distribution wid th ratioOrdered By: Russ Zamora on 11-06-2024 Erythrocyte distribution width (RBC) [Ratio] 16.8 % High 11.6-14.6 [facility] Erythrocyte distribution wid th standard deviationOrdered By: Russ Zamora on 11-06-2024 Erythrocyte distribution width (RBC) [Entitic vol] 53.5 fL High 35.1-43.9 [facility] Erythrocyte distribution width (RBC) [Ratio] 53.5 fl High 35.1-43.9 [facility] Estimation of creatinine rowdy aranceOrdered By: Russ Zamora on 11-06-2024 Estimated Creatinine Clearance Calc 32.00 ml/min Low 50-250 [facility] GFR/1.73 sq M.predicted kaylyn g non-blacks MDRD (S/P/Bld) [Vol rate/Area]Ordered By: Russ Zamora on 11-06-2024 Estimated GFR (MDRD) Non-Af Amer 36 Low >60 [facility] Comment on above: mL/min/1.73m2 CKD-EP I Creatinine Equation (2020) Glomerular filtration rate ( GFR) estimation/1.73 sq m using serum, plasma, or whole bOrdered By: Russ Zamora on 11-06-2024 GFR/1.73 sq M.predicted among non-blacks MDRD (S/P/Bld) [Vol rate/Area] 36 mL/min/{1.73_m2} Low >60 [facility] Comment on above: mL/min/1.73m2 CKD-EP I Creatinine Equation (2020) Hematocrit Auto (Bld) [Volum e fraction]Ordered By: Russ Zamora on 11-06-2024 Hematocrit (Bld) [Volume fraction] 34.2 % Low 40-54 [facility] Hemoglobin measurementOrdere d By: Russ Zamora on 11-06-2024 Hemoglobin (Bld) [Mass/Vol] 10.7 g/dL Low 13.0-16.5 [facility] Immature granulocytes/100 WB C Auto (Bld)Ordered By: Russ Zamora on 11-06-2024 Immature granulocytes/100 WBC (Bld) 0.500 % 0.0-0.9 [facility] Comment on above: IG% - Immature Granu locytes (promyelocytes, myelocytes and metamyelocytes) > 1% indicates that a LEFT SHIFT is Present. LDHon 11-06-2024 LDH 135 U/L Normal 87-241 [facility] Comment on above: Order Comment: 1 Performed By: #### L 500.4050, L504.2610, L100.0100 ####[facility] [address] [place], [address] Laboratory - Chemistry and C hemistry - challengeOrdered By: Russ Zamora on 11-06-2024 AST [Catalytic activity/Vol] 16 U/L <38 [facility] Lactate dehydrogenase (LDH) measurementOrdered By: Russ Zamora on 11-06-2024 LDH [Catalytic activity/Vol] 135 U/L 87-241 [facility] Lymphocytes Auto (Unsp spec) [#/Vol]Ordered By: Russ Zamora on 11-06-2024 Lymphocytes (Bld) [#/Vol] 0.82 10*3/uL Low 0.83-4.51 [facility] Lymphocytes/100 WBC Auto (Un sp spec)Ordered By: Russ Zamora on 11-06-2024 Lymphocytes/100 WBC (Bld) 8.1 % Low 19-41 [facility] MCV (mean corpuscular volume ) determinationOrdered By: Russ Zamora on 11-06-2024 MCV (RBC) [Entitic vol] 87.5 fL 80-94 [facility] Mean corpuscular hemoglobin (MCH) determinationOrdered By: Russ Zamora on 11-06-2024 MCH (RBC) [Entitic mass] 27.4 pg 27.0-32.0 [facility] Mean corpuscular hemoglobin concentration (MCHC) determinationOrdered By: Russ Zamora on 11-06-2024 MCHC (RBC) [Mass/Vol] 31.3 g/dL Low 32-36 [facility] Mean platelet volume determi nationOrdered By: Russ Zamora on 11-06-2024 Platelet mean volume (Bld) [Entitic vol] 10.4 fL 6.2-12.0 [facility] Monocyte percentageOrdered B y: Russ Zamora on 11-06-2024 Monocytes/100 WBC (Bld) 8.8 % 0-10 [facility] Neutrophil percentageOrdered By: Russ Zamora on 11-06-2024 Neutrophils/100 WBC (Bld) 80.6 % High 47-70 [facility] Nucleated red blood cell per centageOrdered By: Russ Zamora on 11-06-2024 Nucleated RBC/100 WBC (Bld) [Ratio] 0 % 0-5 [facility] Oncology Visit Reporton 10-19 Oncology Visit Report Normal [facility] Platelet countOrdered By: Flores Zamora on 11-06-2024 Platelets (Bld) [#/Vol] 212 10*3/uL 150-450 [facility] Potassium (Unsp spec) [Mass/ Vol]Ordered By: Russ Zamora on 11-06-2024 Potassium [Moles/Vol] 4.8 mmol/L 3.3-5.1 [facility] Potassium measurement (mass/ volume)Ordered By: Russ Zamora on 11-06-2024 Potassium (Unsp spec) [Mass/Vol] 4.8 mmol/L 3.3-5.1 [facility] RBC Auto (Bld) [#/Vol]Ordere d By: Russ Zamora on 11-06-2024 RBC (Bld) [#/Vol] 3.91 10*6/uL Low 4.6-6.2 [facility] Serum creatinine measurement (mass/volume)Ordered By: Russ Zamora on 11-06-2024 Creatinine [Mass/Vol] 1.87 mg/dL High 0.70-1.20 [facility] Serum globulin measurementOr dered By: Russ Zamora on 11-06-2024 Globulin (S) [Mass/Vol] 4.1 g/dL 2.2-4.2 [facility] Serum glucose measurement (m ass/volume)Ordered By: Russ Zamora on 11-06-2024 Glucose [Mass/Vol] 132 mg/dL High 70-99 [facility] Serum or plasma alanine ortiz otransferase (ALT) measurementOrdered By: Russ Zamora on 11-06-2024 ALT [Catalytic activity/Vol] 10 U/L <47 [facility] Serum or plasma albumin kingsley urement (mass/volume)Ordered By: Russ Zamora on 11-06-2024 Albumin [Mass/Vol] 3.8 g/dL 3.4-4.8 [facility] Serum or plasma albumin/glob ulin mass ratioOrdered By: Russ Zamora on 11-06-2024 Albumin/Globulin [Mass ratio] 0.9 {ratio} 0.9-2.4 [facility] Serum or plasma alkaline roosevelt sphatase measurementOrdered By: Russ Zamora on 11-06-2024 ALP [Catalytic activity/Vol] 72 U/L 40-129 [facility] Serum or plasma calcium kingsley urement (mass/volume)Ordered By: Russ Zamora on 11-06-2024 Calcium [Mass/Vol] 9.1 mg/dL 7.6-11.0 [facility] Serum or plasma urea nitroge n measurement (mass/volume)Ordered By: Russ Zamora on 11-06-2024 Urea nitrogen [Mass/Vol] 36 mg/dL High 4-19 [facility] Sodium levelOrdered By: Esau Zamora on 11-06-2024 Sodium [Moles/Vol] 140 mmol/L 133-145 [facility] Total proteinOrdered By: Frantz Zamora on 11-06-2024 Protein [Mass/Vol] 7.9 g/dL 5.9-8.4 [facility] White blood cell (WBC) count Ordered By: Russ Zamora on 11-06-2024 WBC (Bld) [#/Vol] 10.1 10*3/uL 4.4-11.0 [facility] CREATININE FINGERSTICKon Creatinine [Mass/Vol] 1.5 mg/dL High 0.70-1.30 [facility] Comment on above: Performed By: #### L 9100.0200 ####[facility] [address] [place], [address] GFR/1.73 sq M.predicted among non-blacks MDRD (S/P/Bld) [Vol rate/Area] 48.0000 mL/min/{1.73_m2} Low >60 [facility] Comment on above: Performed By: #### L 9100.0200 ####[facility] [address] [place], [address] CT Chest AND Abd W/ Contrast on 10-30-2024 CT Chest AND Abd W/ Contrast Normal [facility] Creatinine measurement at be dsideOrdered By: Russ Zamora on 10-30-2024 Creatinine [Mass/Vol] 1.5 mg/dL High 0.70-1.30 [facility] EGFROrdered By: Russ Zamora on 10-30-2024 GFR/1.73 sq M.predicted among non-blacks MDRD (S/P/Bld) [Vol rate/Area] 48.0000 mL/min/{1.73_m2} Low >60 [facility] Pulmonary Visit Reporton Pulmonary Visit Report Normal [facility] Hemoglobin A1con 10-21-2024 HbA1c (Bld) [Mass fraction] 6.6 % Normal <=5.6 [facility] Comment on above: Performed By: #### L 501.9985 ####[facility] [address] [place], [place], [id number] Hemoglobin A1c percentageOrd ered By: Tonio Fajardo on 10-20-2024 HbA1c (Bld) [Mass fraction] 6.6 % >5.7 [facility] 6 Minute Walk Teston 025 6 Minute Walk Test Normal [facility] Absolute neutrophil countOrd ered By: Leslie Arriaga on 09-25-2024 Neutrophils (Bld) [#/Vol] 6.7 10*3/uL 2.0-7.7 [facility] BNP (brain natriuretic pepti de measurement)Ordered By: Leslie Arriaga on 09-25-2024 Natriuretic peptide B (Bld) [Mass/Vol] 183.7 pg/mL High 0-100 [facility] BNP,B-Type NATRIURETIC PEPTI Adrienne 09-25-2024 Natriuretic peptide B (Bld) [Mass/Vol] 183.7 pg/mL High 0-100 [facility] Comment on above: Performed By: #### L 503.6620, L500.2500, L100.0100 ####[facility] [address] [place], [address] Basic Metabolic Profile (BMP )on 09-25-2024 BUN/CRE 15.4 RATIO Normal 10-20 [facility] Comment on above: Performed By: #### L 503.6620, L500.2500, L100.0100 ####[facility] [address] [place], [address] CA,Total 9.1 mg/dL Normal 8.5-10.1 [facility] Comment on above: Performed By: #### L 503.6620, L500.2500, L100.0100 ####[facility] [address] [place], [address] Chloride [Moles/Vol] 105 mmol/L Normal 98-107 [facility] Comment on above: Performed By: #### L 503.6620, L500.2500, L100.0100 ####[facility] [address] [place], [address] CO2 [Moles/Vol] 28.0 mmol/L Normal 21.0-32.0 [facility] Comment on above: Performed By: #### L 503.6620, L500.2500, L100.0100 ####[facility] [address] [place], [address] Creatinine [Mass/Vol] 2.21 mg/dL High 0.70-1.30 [facility] Comment on above: Result Comment: The validity of the calculated GFR GFRAA in patients over70 years has not been determined. Clinical correlation isessential. Performed By: #### L 503.6620, L500.2500, L100.0100 ####[facility] [address] [place], [address] EST GFR - AA 37 mL/min Low >60 [facility] Comment on above: Result Comment: Afri can Cameroonian GFR Calc Performed By: #### L 503.6620, L500.2500, L100.0100 ####[facility] [address] [place], [address] GAP 5 Normal 5-15 [facility] Comment on above: Performed By: #### L 503.6620, L500.2500, L100.0100 ####[facility] [address] [place], [address] GFR/1.73 sq M.predicted among non-blacks MDRD (S/P/Bld) [Vol rate/Area] 31 mL/min/{1.73_m2} Low >60 [facility] Comment on above: Result Comment: Non- GFR Calc Performed By: #### L 503.6620, L500.2500, L100.0100 ####[facility] [address] [place], [address] Glucose [Mass/Vol] 127 mg/dL High 74-106 [facility] Comment on above: Result Comment: Fast ing Glucose result greater than or equal to 126 mg/dLsuggests DIABETES MELLITUS per A.D.A. criteria. Performed By: #### L 503.6620, L500.2500, L100.0100 ####[facility] [address] [place], [address] Potassium [Moles/Vol] 4.3 mmol/L Normal 3.5-5.1 [facility] Comment on above: Performed By: #### L 503.6620, L500.2500, L100.0100 ####[facility] [address] [place], [address] Sodium [Moles/Vol] 138 mmol/L Normal 136-145 [facility] Comment on above: Performed By: #### L 503.6620, L500.2500, L100.0100 ####[facility] [address] [place], [address] Urea nitrogen [Mass/Vol] 34 mg/dL High 7-18 [facility] Comment on above: Performed By: #### L 503.6620, L500.2500, L100.0100 ####[facility] [address] [place], [address] Basophil percentageOrdered B y: Leslie Arriaga on 09-25-2024 Basophils/100 WBC (Bld) 0.6 % 0-1 [facility] Blood urea nitrogen (BUN)/cr eatinine ratioOrdered By: Leslie Arriaga on 09-25-2024 Urea nitrogen/Creatinine [Mass ratio] 15.4 mg/mg 10-20 [facility] CBC W/Diff, Automatedon Absolute Lymph 0.91 X10 3/uL Normal 0.83-4.51 [facility] Comment on above: Performed By: #### L 503.6620, L500.2500, L100.0100 ####[facility] [address] [place], [address] Absolute Neut 6.7 X10 3/uL Normal 2.0-7.7 [facility] Comment on above: Performed By: #### L 503.6620, L500.2500, L100.0100 ####[facility] [address] [place], [address] Basophils/100 WBC (Bld) 0.6 % Normal 0-1 [facility] Comment on above: Performed By: #### L 503.6620, L500.2500, L100.0100 ####[facility] [address] [place], [address] Eosinophils/100 WBC (Bld) 1.1 % Normal 0-5 [facility] Comment on above: Performed By: #### L 503.6620, L500.2500, L100.0100 ####[facility] [address] [place], [address] Erythrocyte distribution width (RBC) [Ratio] 16.2 % High 11.6-14.6 [facility] Comment on above: Performed By: #### L 503.6620, L500.2500, L100.0100 ####[facility] [address] [place], [address] Hematocrit (Bld) [Volume fraction] 36.0 % Low 40-54 [facility] Comment on above: Performed By: #### L 503.6620, L500.2500, L100.0100 ####[facility] [address] [place], [address] Hemoglobin (Bld) [Mass/Vol] 11.1 g/dL Low 13.0-16.5 [facility] Comment on above: Performed By: #### L 503.6620, L500.2500, L100.0100 ####[facility] [address] [place], [address] IG% 0.700 Normal 0.0-0.9 [facility] Comment on above: Result Comment: IG% - Immature Granulocytes (promyelocytes, myelocytes andmetamyelocytes) > 1% indicates that a LEFT SHIFT is Present. Performed By: #### L 503.6620, L500.2500, L100.0100 ####[facility] [address] [place], [address] Lymphocytes/100 WBC (Bld) 10.4 % Low 19-41 [facility] Comment on above: Performed By: #### L 503.6620, L500.2500, L100.0100 ####[facility] [address] [place], [address] MCH (RBC) [Entitic mass] 27.7 pg Normal 27.0-32.0 [facility] Comment on above: Performed By: #### L 503.6620, L500.2500, L100.0100 ####[facility] [address] [place], [address] MCHC (RBC) [Mass/Vol] 30.8 g/dL Low 32-36 [facility] Comment on above: Performed By: #### L 503.6620, L500.2500, L100.0100 ####[facility] [address] [place], [address] MCV (RBC) [Entitic vol] 89.8 fL Normal 80-94 [facility] Comment on above: Performed By: #### L 503.6620, L500.2500, L100.0100 ####[facility] [address] [place], [address] Monocytes/100 WBC (Bld) 10.3 % High 0-10 [facility] Comment on above: Performed By: #### L 503.6620, L500.2500, L100.0100 ####[facility] [address] [place], [address] Neutrophils/100 WBC (Bld) 76.9 % High 47-70 [facility] Comment on above: Performed By: #### L 503.6620, L500.2500, L100.0100 ####[facility] [address] [place], [address] Nucleated RBC (Bld) [#/Vol] 0 10*3/uL Normal 0-5 [facility] Comment on above: Performed By: #### L 503.6620, L500.2500, L100.0100 ####[facility] [address] [place], [address] Platelet mean volume (Bld) [Entitic vol] 10.5 fL Normal 6.2-12.0 [facility] Comment on above: Performed By: #### L 503.6620, L500.2500, L100.0100 ####[facility] [address] [place], [address] Platelets (Bld) [#/Vol] 256 10*3/uL Normal 150-450 [facility] Comment on above: Performed By: #### L 503.6620, L500.2500, L100.0100 ####[facility] [address] [place], [address] RBC (Bld) [#/Vol] 4.01 10*6/uL Low 4.6-6.2 [facility] Comment on above: Performed By: #### L 503.6620, L500.2500, L100.0100 ####[facility] [address] [place], [address] RDW SD 52.7 fl High 35.1-43.9 [facility] Comment on above: Performed By: #### L 503.6620, L500.2500, L100.0100 ####[facility] [address] [place], [address] WBC (Bld) [#/Vol] 8.7 10*3/uL Normal 4.4-11.0 [facility] Comment on above: Performed By: #### L 503.6620, L500.2500, L100.0100 ####[facility] [address] [place], [address] Carbon dioxide measurementOr dered By: Leslie Arriaga on 09-25-2024 CO2 [Moles/Vol] 28.0 mmol/L 21.0-32.0 [facility] Cardiology Visit Reporton Cardiology Visit Report Normal [facility] Chest PA and Lateralon 09-25 Chest PA and Lateral Normal [facility] Chloride measurementOrdered By: Leslie Arriaga on 09-25-2024 Chloride [Moles/Vol] 105 mmol/L 98-107 [facility] Eosinophil percentageOrdered By: Leslie Arriaga on 09-25-2024 Eosinophils/100 WBC (Bld) 1.1 % 0-5 [facility] Erythrocyte distribution wid th ratioOrdered By: Leslie Arriaga on 09-25-2024 Erythrocyte distribution width (RBC) [Ratio] 16.2 % High 11.6-14.6 [facility] Erythrocyte distribution wid th standard deviationOrdered By: Leslie Arriaga on 09-25-2024 Erythrocyte distribution width (RBC) [Entitic vol] 52.7 fL High 35.1-43.9 [facility] Estimated glomerular filtrat ion rate (GFR) AmericanOrdered By: Leslie Arriaga on 09-25-2024 Estimated GFR (MDRD) Amer 37 mL/min Low >60 [facility] Comment on above: GFR Calc Glomerular filtration rate ( GFR) estimationOrdered By: Leslie Arriaga on 09-25-2024 Estimated GFR (MDRD) Non-Af Amer 31 mL/min Low >60 [facility] Comment on above: Non- GFR Calc Glucose measurementOrdered B y: Leslie Arriaga on 09-25-2024 Glucose [Mass/Vol] 127 mg/dL High 74-106 [facility] Comment on above: Fasting Glucose resu lt greater than or equal to 126 mg/dL suggests DIABETES MELLITUS per A.D.A. criteria. Hematocrit Auto (Bld) [Volum e fraction]Ordered By: Leslie Arriaga on 09-25-2024 Hematocrit (Bld) [Volume fraction] 36.0 % Low 40-54 [facility] Hemoglobin measurementOrdere d By: Leslie Arriaga on 09-25-2024 Hemoglobin (Bld) [Mass/Vol] 11.1 g/dL Low 13.0-16.5 [facility] Immature granulocytes/100 WB C Auto (Bld)Ordered By: Leslie Arriaga on 09-25-2024 Immature granulocytes/100 WBC (Bld) 0.700 % 0.0-0.9 [facility] Comment on above: IG% - Immature Granu locytes (promyelocytes, myelocytes and metamyelocytes) > 1% indicates that a LEFT SHIFT is Present. Lymphocytes Auto (Unsp spec) [#/Vol]Ordered By: Leslie Arriaga on 09-25-2024 Lymphocytes (Bld) [#/Vol] 0.91 10*3/uL 0.83-4.51 [facility] Lymphocytes/100 WBC Auto (Un sp spec)Ordered By: Leslie Arriaga on 09-25-2024 Lymphocytes/100 WBC (Bld) 10.4 % Low 19-41 [facility] MCV (mean corpuscular volume ) determinationOrdered By: Leslie Arriaga on 09-25-2024 MCV (RBC) [Entitic vol] 89.8 fL 80-94 [facility] Mean corpuscular hemoglobin (MCH) determinationOrdered By: Leslie Arriaga on 09-25-2024 MCH (RBC) [Entitic mass] 27.7 pg 27.0-32.0 [facility] Mean corpuscular hemoglobin concentration (MCHC) determinationOrdered By: Leslie Arriaga on 09-25-2024 MCHC (RBC) [Mass/Vol] 30.8 g/dL Low 32-36 [facility] Mean platelet volume determi nationOrdered By: Leslie Arriaga on 09-25-2024 Platelet mean volume (Bld) [Entitic vol] 10.5 fL 6.2-12.0 [facility] Monocyte percentageOrdered B y: Leslie Arriaga on 09-25-2024 Monocytes/100 WBC (Bld) 10.3 % High 0-10 [facility] Neutrophil percentageOrdered By: Leslie Arriaga on 09-25-2024 Neutrophils/100 WBC (Bld) 76.9 % High 47-70 [facility] Nucleated red blood cell per centageOrdered By: Leslie Arriaga on 09-25-2024 Nucleated RBC/100 WBC (Bld) [Ratio] 0 % 0-5 [facility] Platelet countOrdered By: Linsey Arriaga on 09-25-2024 Platelets (Bld) [#/Vol] 256 10*3/uL 150-450 [facility] Potassium measurementOrdered By: Leslie Arriaga on 09-25-2024 Potassium [Moles/Vol] 4.3 mmol/L 3.5-5.1 [facility] RBC Auto (Bld) [#/Vol]Ordere d By: Leslie Arriaga on 09-25-2024 RBC (Bld) [#/Vol] 4.01 10*6/uL Low 4.6-6.2 [facility] Serum anion gap measurementO rdered By: Leslie Arriaga on 09-25-2024 Anion gap [Moles/Vol] 5 mmol/L 5-15 [facility] Serum or plasma calcium kingsley urement (mass/volume)Ordered By: Leslie Arriaga on 09-25-2024 Calcium [Mass/Vol] 9.1 mg/dL 8.5-10.1 [facility] Serum or plasma creatinine m easurement (mass/volume)Ordered By: Leslie Arriaga on 09-25-2024 Creatinine [Mass/Vol] 2.21 mg/dL High 0.70-1.30 [facility] Comment on above: The validity of the calculated GFR & GFRAA in patients over 70 years has not been determined. Clinical correlation is essential. Serum or plasma urea nitroge n measurement (mass/volume)Ordered By: Leslie Arriaga on 09-25-2024 Urea nitrogen [Mass/Vol] 34 mg/dL High 7-18 [facility] Sodium levelOrdered By: Brian Arriaga on 09-25-2024 Sodium [Moles/Vol] 138 mmol/L 136-145 [facility] White blood cell (WBC) count Ordered By: Leslie Arriaga on 09-25-2024 WBC (Bld) [#/Vol] 8.7 10*3/uL 4.4-11.0 [facility] Culture, Fungus 8482on 08-04 CUF Normal [facility] Comment on above: Performed By: #### M 100.2000, M600.2000, M100.4001, M100.3000 ####[facility] [address] [place], [place], [id number] Culture, Anaerobic Any Sourc talat 07-09-2024 CUAN Prevotella and Porphyromonas species are generally SUSCEPTIBLE to Cefoxitin, Chloramphenicol, and Metronidazole and are usually RESISTANT to Penicillin. Prevotella oralis Beta Lactamase-Reportable Positive Normal [facility] Comment on above: Performed By: #### M 100.1999, M600.1999, M100.4001, M100.3000 ####[facility] [address] [place], [address] Wound Cultureon 07-05-2024 WC Normal [facility] Comment on above: Performed By: #### M 100.1999, M600.1999, M100.4001, M100.3000 ####[facility] [address] [place], [address] Gram Stainon 07-04-2024 GS Positive Normal [facility] Comment on above: Performed By: #### M 100.1999, M600.1999, M100.4001, M100.3000 ####[facility] [address] [place], [address] Bacteria identified Anaer cx Nom (Unsp spec)Ordered By: Joaquim Suárez on 07-03-2024 Anaerobic Culture Prevotella oralis Abnormal [facility] Fungus identified Cx Nom (Un sp spec)Ordered By: Joaquim Suárez on 07-03-2024 Fungal Culture Ann-Marie parapsilosis Abnormal [facility] Gram stainOrdered By: Bladimir Suárez on 07-03-2024 Microscopic observation Gram stain Nom (Unsp spec) [facility] Routine wound cultureOrdered By: Joaquim Suárez on 07-03-2024 Wound Culture Staphylococcus pseudintermediu Abnormal [facility] Lower Ext Art Exam w/o Exerc soco 06-17-2024 Lower Ext Art Exam w/o Exercis Normal [facility] Venous Duplex US - Hi Extre mon 06-17-2024 Venous Duplex US - Hi Extrem Normal [facility] CBC W/Diff, Automatedon - Absolute Lymph 0.94 X10 3/uL Normal 0.83-4.51 [facility] Comment on above: Performed By: #### L 504.2610, L100.0100, L500.4050 ####[facility] [address] [place], [address] Absolute Neut 5.7 X10 3/uL Normal 2.0-7.7 [facility] Comment on above: Performed By: #### L 504.2610, L100.0100, L500.4050 ####[facility] [address] [place], [address] Basophils/100 WBC (Bld) 0.6 % Normal 0-1 [facility] Comment on above: Performed By: #### L 504.2610, L100.0100, L500.4050 ####[facility] [address] [place], [address] Eosinophils/100 WBC (Bld) 2.5 % Normal 0-5 [facility] Comment on above: Performed By: #### L 504.2610, L100.0100, L500.4050 ####[facility] [address] [place], [address] Erythrocyte distribution width (RBC) [Ratio] 16.3 % High 11.6-14.6 [facility] Comment on above: Performed By: #### L 504.2610, L100.0100, L500.4050 ####[facility] [address] [place], [address] Hematocrit (Bld) [Volume fraction] 36.9 % Low 40-54 [facility] Comment on above: Performed By: #### L 504.2610, L100.0100, L500.4050 ####[facility] [address] [place], [address] Hemoglobin (Bld) [Mass/Vol] 11.3 g/dL Low 13.0-16.5 [facility] Comment on above: Performed By: #### L 504.2610, L100.0100, L500.4050 ####[facility] [address] [place], [address] IG% 1.400 High 0.0-0.9 [facility] Comment on above: Result Comment: IG% - Immature Granulocytes (promyelocytes, myelocytes andmetamyelocytes) > 1% indicates that a LEFT SHIFT is Present. Performed By: #### L 504.2610, L100.0100, L500.4050 ####[facility] [address] [place], [address] Lymphocytes/100 WBC (Bld) 11.8 % Low 19-41 [facility] Comment on above: Performed By: #### L 504.2610, L100.0100, L500.4050 ####[facility] [address] [place], [address] MCH (RBC) [Entitic mass] 27.2 pg Normal 27.0-32.0 [facility] Comment on above: Performed By: #### L 504.2610, L100.0100, L500.4050 ####[facility] [address] [place], [address] MCHC (RBC) [Mass/Vol] 30.6 g/dL Low 32-36 [facility] Comment on above: Performed By: #### L 504.2610, L100.0100, L500.4050 ####[facility] [address] [place], [address] MCV (RBC) [Entitic vol] 88.7 fL Normal 80-94 [facility] Comment on above: Performed By: #### L 504.2610, L100.0100, L500.4050 ####[facility] [address] [place], [address] Monocytes/100 WBC (Bld) 11.6 % High 0-10 [facility] Comment on above: Performed By: #### L 504.2610, L100.0100, L500.4050 ####[facility] [address] [place], [address] Neutrophils/100 WBC (Bld) 72.1 % High 47-70 [facility] Comment on above: Performed By: #### L 504.2610, L100.0100, L500.4050 ####[facility] [address] [place], [address] Nucleated RBC (Bld) [#/Vol] 0 10*3/uL Normal 0-5 [facility] Comment on above: Performed By: #### L 504.2610, L100.0100, L500.4050 ####[facility] [address] [place], [address] Platelet mean volume (Bld) [Entitic vol] 9.9 fL Normal 6.2-12.0 [facility] Comment on above: Performed By: #### L 504.2610, L100.0100, L500.4050 ####[facility] [address] [place], [address] Platelets (Bld) [#/Vol] 222 10*3/uL Normal 150-450 [facility] Comment on above: Performed By: #### L 504.2610, L100.0100, L500.4050 ####[facility] [address] [place], [address] RBC (Bld) [#/Vol] 4.16 10*6/uL Low 4.6-6.2 [facility] Comment on above: Performed By: #### L 504.2610, L100.0100, L500.4050 ####[facility] [address] [place], [address] RDW SD 53.2 fl High 35.1-43.9 [facility] Comment on above: Performed By: #### L 504.2610, L100.0100, L500.4050 ####[facility] [address] [place], [address] WBC (Bld) [#/Vol] 8.0 10*3/uL Normal 4.4-11.0 [facility] Comment on above: Performed By: #### L 504.2610, L100.0100, L500.4050 ####[facility] [address] [place], [address] Comprehensive Metabolic Prof ilon 05-05-2024 Albumin [Mass/Vol] 3.1 g/dL Low 3.2-5.0 [facility] Comment on above: Order Comment: 1 Performed By: #### L 504.2610, L100.0100, L500.4050 ####[facility] [address] [place], [address] Albumin/Globulin [Mass ratio] 0.6 {ratio} Low 0.9-2.4 [facility] Comment on above: Order Comment: 1 Performed By: #### L 504.2610, L100.0100, L500.4050 ####[facility] [address] [place], [address] ALK P 60 U/L Normal 45-117 [facility] Comment on above: Order Comment: 1 Performed By: #### L 504.2610, L100.0100, L500.4050 ####[facility] [address] [place], [address] ALT [Catalytic activity/Vol] 15 U/L Low 16-61 [facility] Comment on above: Order Comment: 1 Performed By: #### L 504.2610, L100.0100, L500.4050 ####[facility] [address] [place], [address] AST [Catalytic activity/Vol] 11 U/L Low 15-37 [facility] Comment on above: Order Comment: 1 Performed By: #### L 504.2610, L100.0100, L500.4050 ####[facility] [address] [place], [address] Bilirubin [Mass/Vol] 0.40 mg/dL Normal 0.20-1.00 [facility] Comment on above: Order Comment: 1 Result Comment: For patients on eltrombopag therapy, use of Dimension [place] TBIL is not recommended. Performed By: #### L 504.2610, L100.0100, L500.4050 ####[facility] [address] [place], [address] BUN/CRE 20.3 RATIO High 10-20 [facility] Comment on above: Order Comment: 1 Performed By: #### L 504.2610, L100.0100, L500.4050 ####[facility] [address] [place], [address] CA,Total 9.3 mg/dL Normal 8.5-10.1 [facility] Comment on above: Order Comment: 1 Performed By: #### L 504.2610, L100.0100, L500.4050 ####[facility] [address] [place], [address] Chloride [Moles/Vol] 104 mmol/L Normal 98-107 [facility] Comment on above: Order Comment: 1 Performed By: #### L 504.2610, L100.0100, L500.4050 ####[facility] [address] [place], [address] CO2 [Moles/Vol] 27.0 mmol/L Normal 21.0-32.0 [facility] Comment on above: Order Comment: 1 Performed By: #### L 504.2610, L100.0100, L500.4050 ####[facility] [address] [place], [address] Creatinine [Mass/Vol] 2.17 mg/dL High 0.70-1.30 [facility] Comment on above: Order Comment: 1 Result Comment: The validity of the calculated GFR GFRAA in patients over70 years has not been determined. Clinical correlation isessential. Performed By: #### L 504.2610, L100.0100, L500.4050 ####[facility] [address] [place], [address] ECRCL 27.63 ml/min Normal [facility] Comment on above: Order Comment: 1 Performed By: #### L 504.2610, L100.0100, L500.4050 ####[facility] [address] [place], [address] EST GFR - AA 38 mL/min Low >60 [facility] Comment on above: Order Comment: 1 Result Comment: Afri can Cameroonian GFR Calc Performed By: #### L 504.2610, L100.0100, L500.4050 ####[facility] [address] [place], [address] GAP 3 Low 5-15 [facility] Comment on above: Order Comment: 1 Performed By: #### L 504.2610, L100.0100, L500.4050 ####[facility] [address] [place], [address] GFR/1.73 sq M.predicted among non-blacks MDRD (S/P/Bld) [Vol rate/Area] 31 mL/min/{1.73_m2} Low >60 [facility] Comment on above: Order Comment: 1 Result Comment: Non- GFR Calc Performed By: #### L 504.2610, L100.0100, L500.4050 ####[facility] [address] [place], [address] Globulin (S) [Mass/Vol] 4.9 g/dL High 2.2-4.2 [facility] Comment on above: Order Comment: 1 Performed By: #### L 504.2610, L100.0100, L500.4050 ####[facility] [address] [place], [address] Glucose [Mass/Vol] 130 mg/dL High 74-106 [facility] Comment on above: Order Comment: 1 Result Comment: Fast ing Glucose result greater than or equal to 126 mg/dLsuggests DIABETES MELLITUS per A.D.A. criteria. Performed By: #### L 504.2610, L100.0100, L500.4050 ####[facility] [address] [place], [address] Potassium [Moles/Vol] 4.8 mmol/L Normal 3.5-5.1 [facility] Comment on above: Order Comment: 1 Performed By: #### L 504.2610, L100.0100, L500.4050 ####[facility] [address] [place], [address] Sodium [Moles/Vol] 134 mmol/L Low 136-145 [facility] Comment on above: Order Comment: 1 Performed By: #### L 504.2610, L100.0100, L500.4050 ####[facility] [address] [place], [address] T PROT 8.0 g/dL Normal 6.4-8.2 [facility] Comment on above: Order Comment: 1 Performed By: #### L 504.2610, L100.0100, L500.4050 ####[facility] [address] [place], [address] Urea nitrogen [Mass/Vol] 44 mg/dL High 7-18 [facility] Comment on above: Order Comment: 1 Performed By: #### L 504.2610, L100.0100, L500.4050 ####[facility] [address] [place], [address] Estimated glomerular filtrat ion rate (GFR) AmericanOrdered By: Russ Zamora on 05-05-2024 Estimated GFR (MDRD) Amer 38 mL/min Low >60 [facility] Comment on above: GFR Calc LDHon 05-05-2024 LDH 126 U/L Normal 87-241 [facility] Comment on above: Order Comment: 1 Performed By: #### L 504.2610, L100.0100, L500.4050 ####[facility] [address] [place], [address] Oncology Visit Reporton 04-20 Oncology Visit Report Normal [facility] CREATININE FINGERSTICKon Creatinine [Mass/Vol] 1.4 mg/dL High 0.70-1.30 [facility] Comment on above: Performed By: #### L 9100.0200 ####[facility] [address] [place], [address] GFR/1.73 sq M.predicted among non-blacks MDRD (S/P/Bld) [Vol rate/Area] 50.0000 mL/min/{1.73_m2} Low >60 [facility] Comment on above: Performed By: #### L 9100.0200 ####[facility] [address] [place], [address] CT Chest AND Abd W/ Contrast on 04-28-2024 CT Chest AND Abd W/ Contrast Normal [facility] Miscellaneous procedureOrder ed By: Russ Zamora on 01-28-2024 Miscellaneous Test See comment [facility] Comment on above: Sent directly to [facility] per ordering physician. Bacteria identified Cx Nom ( Wound)Ordered By: Joaquim Suárez on 12-24-2023 Wound Culture Staphylococcus pseudintermediu [facility] Wound Culture Enterococcus faecalis [facility] Wound Culture Streptococcus pyogenes [facility] Gram stain for investigation of transfusion reactionOrdered By: Joaquim Suárez on 12-24-2023 Microscopic observation Gram stain Nom (Unsp spec) [facility] Absolute lymphocyte countOrd ered By: Russ Zamora on 11-06-2023 Lymphocytes Auto (Unsp spec) [#/Vol] 0.95 10*3/uL 0.83-4.51 [facility] Addendum DocumentOrdered By: Russ Zamora on 11-06-2023 Serum Immunofixation Comments Comment . [facility] Comment on above: Protein electrophore sis scan will follow via computer,mail, or stitch welder delivery. Albumin Elph [Mass/Vol]Order ed By: Russ Zamora on 11-06-2023 Albumin [Mass/Vol] 3.2 g/dL 2.9-4.4 [facility] Alpha 1 globulin Elph [Mass/ Vol]Ordered By: Russ Zamora on 11-06-2023 Sdfrp-1-Vgenjhfvj (PILY) 0.4 g/dL 0.0-0.4 [facility] Dswcx-0-Fcimafbbf (PILY) 1.3 g/dL High 0.4-1.0 [facility] Automated lymphocyte count a s percentage of total leukocytesOrdered By: Russ Zamora on 11-06-2023 Lymphocytes/100 WBC Auto (Unsp spec) 10.5 % 19-41 [facility] Basophil percentageOrdered B y: Russ Zamora on 11-06-2023 Basophils/100 WBC (Bld) 0.6 % 0-1 [facility] Bilirubin [Mass/Vol] 0.30 mg/dL 0.20-1.00 [facility] Comment on above: For patients on eltr ombopag therapy, use of Dimension [place] TBIL is not recommended. Chloride [Moles/Vol] 105 mmol/L 98-107 [facility] Eosinophils/100 WBC (Bld) 2.1 % 0-5 [facility] Glucose [Mass/Vol] 106 mg/dL 74-106 [facility] Comment on above: Fasting Glucose resu lt from 100 to 125 mg/dL suggests IMPAIRED HOMEOSTASIS per A.D.A. criteria. Hemoglobin (Bld) [Mass/Vol] 11.5 g/dL 13.0-16.5 [facility] LDH [Catalytic activity/Vol] 170 U/L 87-241 [facility] Monocytes/100 WBC (Bld) 10.7 % 0-10 [facility] Neutrophils (Bld) [#/Vol] 6.8 10*3/uL 2.0-7.7 [facility] Neutrophils/100 WBC (Bld) 75.2 % 47-70 [facility] Potassium [Moles/Vol] 4.3 mmol/L 3.5-5.1 [facility] Protein [Mass/Vol] 8.2 g/dL 6.4-8.2 [facility] Sodium [Moles/Vol] 135 mmol/L 136-145 [facility] WBC (Bld) [#/Vol] 9.0 10*3/uL 4.4-11.0 [facility] Beta globulin Elph [Mass/Vol ]Ordered By: Russ Zamora on 11-06-2023 Beta-Globulins (PILY) 1.0 g/dL 0.7-1.3 [facility] C-reactive protein measureme nt by high sensitivity methodOrdered By: Russ Zamora on 11-06-2023 C-Reactive Protein Extended Range 22.10 mg/L High 0.0-3.0 [facility] Comment on above: C-Reactive Protein ( CRP) provides useful information for thediagnosis, therapy and monitoring of inflammatory processesand associated diseases. For the evaluation of Relative Riskfor Cardiovascular Disease, a High Sensitivity CRP (HSCRP)should be ordered. C-reactive protein measurement by high sensitivity method 22.10 mg/L High 0.0-3.0 [facility] Comment on above: C-Reactive Protein ( CRP) provides useful information for thediagnosis, therapy and monitoring of inflammatory processesand associated diseases. For the evaluation of Relative Riskfor Cardiovascular Disease, a High Sensitivity CRP (HSCRP)should be ordered. Determination of erythrocyte mean corpuscular volume (MCV)Ordered By: Russ Zamora on 11-06-2023 MCV (RBC) [Entitic vol] 88.0 fL 80-94 [facility] Erythrocyte distribution wid th ratioOrdered By: Russ Zamora on 11-06-2023 Erythrocyte distribution width (RBC) [Ratio] 15.5 % 11.6-14.6 [facility] Erythrocyte distribution wid th standard deviationOrdered By: Russ Zamora on 11-06-2023 Erythrocyte distribution width (RBC) [Entitic vol] 49.5 fL 35.1-43.9 [facility] Erythrocyte sedimentation ra teOrdered By: Russ Zamora on 11-06-2023 ESR (Bld) [Velocity] 21 mm/h High 0-20 [facility] Gamma globulin Elph [Mass/Vo l]Ordered By: Russ Zamora on 11-06-2023 Gamma Globulins (PILY) 1.8 g/dL 0.4-1.8 [facility] Hematocrit Auto (Bld) [Volum e fraction]Ordered By: Russ Zamora on 11-06-2023 Hematocrit (Bld) [Volume fraction] 36.8 % 40-54 [facility] Hemoglobin (Reticulocytes) [ Entitic mass]Ordered By: Russ Zamora on 11-06-2023 Reticulocyte Hemoglobin Equivalent 31.4 pg 30-35 [facility] Hemoglobin in reticulocytes (mass per reticulocyte)Ordered By: Russ Zamora on 11-06-2023 Hemoglobin (Reticulocytes) [Entitic mass] 31.4 pg 30-35 [facility] IgA [Mass/Vol]Ordered By: Flores Zamora on 11-06-2023 Immunoglobulin A 311 mg/dL 61-437 [facility] IgG [Mass/Vol]Ordered By: Flores Zamora on 11-06-2023 Immunoglobulin G 1529 mg/dL 603-1613 [facility] Immature granulocytes/100 WB C Auto (Bld)Ordered By: Russ Zamora on 11-06-2023 Immature granulocytes/100 WBC (Bld) 0.900 % 0.0-0.9 [facility] Comment on above: IG% - Immature Granu locytes (promyelocytes, myelocytes and metamyelocytes) > 1% indicates that a LEFT SHIFT is Present. Immature reticulocyte fracti onOrdered By: Russ Zamora on 11-06-2023 Immature Reticulocyte Fraction 22.10 % High 3.00-15.90 [facility] Immunoglobulin M measurement Ordered By: Russ Zamora on 11-06-2023 Immunoglobulin M 157 mg/dL High 15-143 [facility] Immunoglobulin light chains. kappa [Mass/Vol]Ordered By: Russ Zamora on 11-06-2023 Free [place] Light Chains, Quant 100.3 mg/L High 3.3-19.4 [facility] Immunoglobulin light chains. kappa/Immunoglobulin light chains.lambda (S) [Mass ratio]Ordered By: Russ Zamora on 11-06-2023 Free [place]/Lambda Light Chain Ratio 1.63 0.26-1.65 [facility] Comment on above: Performed at: [address] [id number] Director: Seb Bertrand PhD, Phone: [phone] Interpretation IEP [Interp]O rdered By: Russ Zamora on 11-06-2023 Immunofixation Screen Comment . [facility] Comment on above: No monoclonality det ected. Interpretation of serum or p lasma protein pattern by immunofixation (narrative resultOrdered By: Russ Zamora on 11-06-2023 Protein Fractions Immunofixation Jose Luis [Interp] Not Observed g/dL Not Observed [facility] Laboratory - Chemistry and C hemistry - challengeOrdered By: Russ Zamora on 11-06-2023 Albumin/Globulin [Mass ratio] 0.6 {ratio} 0.9-2.4 [facility] ALP [Catalytic activity/Vol] 62 U/L 45-117 [facility] ALT [Catalytic activity/Vol] 17 U/L 16-61 [facility] CO2 [Moles/Vol] 24.0 mmol/L 21.0-32.0 [facility] Urea nitrogen/Creatinine [Mass ratio] 21.9 mg/mg 10-20 [facility] Laboratory - Hematology and Cell countsOrdered By: Russ Zamora on 11-06-2023 MCH (RBC) [Entitic mass] 27.5 pg 27.0-32.0 [facility] MCHC (RBC) [Mass/Vol] 31.3 g/dL 32-36 [facility] Nucleated RBC/100 WBC (Bld) [Ratio] 0 % 0-5 [facility] Platelet mean volume (Bld) [Entitic vol] 9.1 fL 6.2-12.0 [facility] Platelets (Bld) [#/Vol] 270 10*3/uL 150-450 [facility] Lambda free light chain kingsley urementOrdered By: Russ Zamora on 11-06-2023 Free Lambda Light Chains, Quant 61.5 mg/L High 5.7-26.3 [facility] No Panel InformationOrdered By: Russ Zamora on 11-06-2023 Addendum Document Comment . [facility] Comment on above: Protein electrophore sis scan will follow via computer,mail, or stitch welder delivery. Estimated Creatinine Clearance Calc 31.12 ml/min [facility] Estimated GFR (MDRD) Amer 43 mL/min >60 [facility] Comment on above: GFR Calc Estimated GFR (MDRD) Non-Af Amer 35 mL/min >60 [facility] Comment on above: Non- GFR Calc Protein Fractions Immunofixa tion Jose Luis [Interp]Ordered By: Russ Zamora on 11-06-2023 M-Arash (PILY) Not Observed g/dL Not Observed [facility] RBC Auto (Bld) [#/Vol]Ordere d By: Russ Zamora on 11-06-2023 RBC (Bld) [#/Vol] 4.18 10*6/uL 4.6-6.2 [facility] Reticulocytes Auto (Bld) [#/ Vol]Ordered By: Russ Zamora on 11-06-2023 Reticulocyte Count 2.12 % High 0.5-1.5 [facility] Reticulocytes/100 RBC (Bld) 2.12 % High 0.5-1.5 [facility] Serum albumin/globulin ratio Ordered By: Russ Zamora on 11-06-2023 Albumin/Globulin (PILY) 0.8 0.7-1.[address] [facility] Serum [id number] measu rement by electrophoresisOrdered By: Russ Zamora on 11-06-2023 Alpha 1 globulin Elph [Mass/Vol] 0.4 g/dL 0.0-0.4 [facility] Alpha 1 globulin Elph [Mass/Vol] 1.3 g/dL High 0.4-1.0 [facility] Serum globulin measurement ( mass/volume)Ordered By: Russ Zamora on 11-06-2023 Globulin (S) [Mass/Vol] 4.4 g/dL 2.2-3.9 [facility] Serum immunoglobulin kappa l ight chains/immunoglobulin lambda light chains mass ratioOrdered By: Russ Zamora on 11-06-2023 Immunoglobulin light chains.kappa/Immunoglobu mellissa light chains.lambda (S) [Mass ratio] 1.63 0.26-1.65 [facility] Comment on above: Performed at: [facility] [place], [place] [id number] Director: Seb Bertrand PhD, Phone: [phone] Serum or plasma IgA measurem ent (mass/volume)Ordered By: Russ Zamora on 11-06-2023 IgA [Mass/Vol] 311 mg/dL 61-437 [facility] Serum or plasma IgG measurem ent (mass/volume)Ordered By: Russ Zamora on 11-06-2023 IgG [Mass/Vol] 1529 mg/dL 603-1613 [facility] Serum or plasma beta globuli n measurement by electrophoresis (mass/volume)Ordered By: Russ Walls on 11-06-2023 Beta globulin Elph [Mass/Vol] 1.0 g/dL 0.7-1.3 [facility] Serum or plasma calcium kingsley urement (mass/volume)Ordered By: Russ Zamora on 11-06-2023 Calcium [Mass/Vol] 9.0 mg/dL 8.5-10.1 [facility] Serum or plasma creatinine m easurement (mass/volume)Ordered By: Russ Zamora on 11-06-2023 Creatinine [Mass/Vol] 1.96 mg/dL 0.70-1.30 [facility] Comment on above: The validity of the calculated GFR & GFRAA in patients over 70 years has not been determined. Clinical correlation is essential. Serum or plasma gamma globul in measurement by electrophoresis (mass/volume)Ordered By: Russ Zamora on 11-06-2023 Gamma globulin Elph [Mass/Vol] 1.8 g/dL 0.4-1.8 [facility] Serum or plasma immunoelectr ophoresis interpretation (nominal result)Ordered By: Russ Zamora on 11-06-2023 Interpretation IEP [Interp] Comment . [facility] Comment on above: No monoclonality det ected. Serum or plasma immunoglobul in kappa light chains measurement (mass/volume)Ordered By: Russ Zamora on 11-06-2023 Immunoglobulin light chains.kappa [Mass/Vol] 100.3 mg/L High 3.3-19.4 [facility] Serum or plasma urea nitroge n measurement (mass/volume)Ordered By: Russ Zamora on 11-06-2023 Urea nitrogen [Mass/Vol] 43 mg/dL 7-18 [facility] Serum or plasma uric acid me asurement (mass/volume)Ordered By: Russ [facility] on 11-06-2023 Urate [Mass/Vol] 6.6 mg/dL 3.5-7.2 [facility] Comment on above: The drugs N-Acetylcy steine and Metamizole may falsely depress this assay. Thin prep Papanicolaou smear with manual screeningOrdered By: Russ Zamora on 11-06-2023 Thin prep Papanicolaou smear with manual screening 3.2 g/dL 3.2-5.0 [facility] Thin prep Papanicolaou smear with manual screening 15 U/L 15-37 [facility] Thin prep Papanicolaou smear with manual screening 6 5-15 [facility] Thin prep Papanicolaou smear with manual screening 0.8 0.7-1.7 [facility] Total protein bloodOrdered B y: [facility] on 11-06-2023 Protein [Mass/Vol] 7.6 g/dL 6.0-8.5 [facility] Basophil percentageOrdered B y: Russ Zamora on 10-12-2023 Creatinine [Mass/Vol] 1.5 mg/dL 0.70-1.30 [facility] Laboratory - Chemistry and C hemistry - challengeOrdered By: Russ Walls on 10-12-2023 GFR/1.73 sq M.predicted among non-blacks MDRD (S/P/Bld) [Vol rate/Area] 49.0000 mL/min/{1.73_m2} >60 [facility] Absolute lymphocyte countOrd ered By: Leslie Arriaga on 07-26-2023 Lymphocytes Auto (Unsp spec) [#/Vol] 1.22 10*3/uL 0.83-4.51 [facility] Assessment of wrist artery p atency prior to arterial punctureOrdered By: Lorie Mart on 07-26-2023 Arterial patency Wrist artery --pre arterial puncture Positive [facility] Base excessOrdered By: Obed Mart on 07-26-2023 Base excess Calc (BldV) [Moles/Vol] -1 mmol/L -2-2 [facility] Basophil percentageOrdered B y: Leslie Arriaga on 07-26-2023 Basophils/100 WBC (Bld) 0.7 % 0-1 [facility] Chloride [Moles/Vol] 105 mmol/L 98-107 [facility] Eosinophils/100 WBC (Bld) 1.7 % 0-5 [facility] Glucose [Mass/Vol] 99 mg/dL 74-106 [facility] Neutrophils (Bld) [#/Vol] 9.0 10*3/uL 2.0-7.7 [facility] Neutrophils/100 WBC (Bld) 76.3 % 47-70 [facility] Potassium [Moles/Vol] 4.8 mmol/L 3.5-5.1 [facility] Sodium [Moles/Vol] 135 mmol/L 136-145 [facility] WBC (Bld) [#/Vol] 11.7 10*3/uL 4.4-11.0 [facility] Basophil percentageOrdered B y: Lorie Mart on 07-26-2023 Basophil percentage 24.8 mmol/L 22-26 [facility] Basophils/100 WBC (Bld) 95 % 95-99 [facility] Blood erythrocytes count (nu mber/volume)Ordered By: Leslie Arriaga on 07-26-2023 RBC (Bld) [#/Vol] 4.50 10*6/uL 4.6-6.2 [facility] Blood hemoglobin measurement (mass/volume)Ordered By: Leslie Arriaga on 07-26-2023 Hemoglobin (Bld) [Mass/Vol] 12.5 g/dL 13.0-16.5 [facility] Blood lymphocytes/100 leukoc ytesOrdered By: Leslie Arriaga on 07-26-2023 Lymphocytes/100 WBC (Bld) 10.4 % 19-41 [facility] Blood monocytes/100 leukocyt esOrdered By: Leslie Arriaga on 07-26-2023 Monocytes/100 WBC (Bld) 10.2 % 0-10 [facility] Blood platelet mean volumeOr dered By: Leslie Arriaga on 07-26-2023 Platelet mean volume (Bld) [Entitic vol] 10.6 fL 6.2-12.0 [facility] CO2 (BldA) [Partial pressure ]Ordered By: Lorie Mart on 07-26-2023 CO2 (Bld) [Partial pressure] 42.6 mm[Hg] 35-45 [facility] Determination of erythrocyte mean corpuscular volume (MCV)Ordered By: Leslie Arriaga on 07-26-2023 MCV (RBC) [Entitic vol] 87.6 fL 80-94 [facility] Hematocrit Auto (Bld) [Volum e fraction]Ordered By: Leslie Arriaga on 07-26-2023 Hematocrit (Bld) [Volume fraction] 39.4 % 40-54 [facility] Laboratory - Chemistry and C hemistry - challengeOrdered By: Leslie Arriaga on 07-26-2023 CO2 [Moles/Vol] 28.0 mmol/L 21.0-32.0 [facility] Natriuretic peptide B (Bld) [Mass/Vol] 233.5 pg/mL 0-100 [facility] Urea nitrogen/Creatinine [Mass ratio] 25.4 mg/mg 10-20 [facility] Laboratory - Hematology and Cell countsOrdered By: Leslie Arriaga on 07-26-2023 Erythrocyte distribution width (RBC) [Entitic vol] 52.0 fL 35.1-43.9 [facility] Erythrocyte distribution width (RBC) [Ratio] 16.3 % 11.6-14.6 [facility] Immature granulocytes/100 WBC (Bld) 0.700 % 0.0-0.9 [facility] Comment on above: IG% - Immature Granu locytes (promyelocytes, myelocytes and metamyelocytes) > 1% indicates that a LEFT SHIFT is Present. MCH (RBC) [Entitic mass] 27.8 pg 27.0-32.0 [facility] Nucleated RBC/100 WBC (Bld) [Ratio] 0 % 0-5 [facility] MCHC Auto (RBC) [Mass/Vol]Or dered By: Leslie Arriaga on 07-26-2023 MCHC (RBC) [Mass/Vol] 31.7 g/dL 32-36 [facility] No Panel InformationOrdered By: Leslie Arriaga on 07-26-2023 Estimated GFR (MDRD) Amer 40 mL/min >60 [facility] Comment on above: GFR Calc Estimated GFR (MDRD) Non-Af Amer 33 mL/min >60 [facility] Comment on above: Non- GFR Calc No Panel InformationOrdered By: Lorie Mart on 07-26-2023 Blood Gas Sample Site R Radial [facility] Blood Gas Specimen Type ART [facility] Blood Gas Total CO2 26 mmol/L [facility] Blood Gas Vent Mode Not entered [facility] Oxygen Delivery Device [id number] [facility] Oxygen (BldA) [Partial press ure]Ordered By: Lorie Mart on 07-26-2023 Oxygen (Bld) [Partial pressure] 77 mmHG 75-100 [facility] Platelets bldOrdered By: Markus Arriaga on 07-26-2023 Platelets (Bld) [#/Vol] 264 10*3/uL 150-450 [facility] Serum or plasma calcium kingsley urement (mass/volume)Ordered By: Leslie Arriaga on 07-26-2023 Calcium [Mass/Vol] 9.3 mg/dL 8.5-10.1 [facility] Serum or plasma creatinine m easurement (mass/volume)Ordered By: Leslie Arriaga on 07-26-2023 Creatinine [Mass/Vol] 2.09 mg/dL 0.70-1.30 [facility] Comment on above: The validity of the calculated GFR & GFRAA in patients over 70 years has not been determined. Clinical correlation is essential. Serum or plasma urea nitroge n measurement (mass/volume)Ordered By: Leslie Arriaga on 07-26-2023 Urea nitrogen [Mass/Vol] 53 mg/dL 7-18 [facility] Thin prep Papanicolaou smear with manual screeningOrdered By: Leslie Arriaga on 07-26-2023 Thin prep Papanicolaou smear with manual screening 2 5-15 [facility] pH measurementOrdered By: Pj Mart on 07-26-2023 pH (Unsp spec) 7.37 [pH] 7.35-7.45 [facility] Anaerobic cultureOrdered By: Joaquim Suárez on 06-22-2023 Bacteria identified Anaer cx Nom (Unsp spec) No anaerobic bacteria isolated. [facility] Bacteria identified Cx Nom ( Wound)Ordered By: Joaquim Suárez on 06-22-2023 Wound Culture Staphylococcus epidermidis [facility] Wound Culture Corynebacterium jeikeium [facility] Fungus cultureOrdered By: Flores Suárez on 06-22-2023 Fungus identified Cx Nom (Unsp spec) [facility] Gram stain for investigation of transfusion reactionOrdered By: Joaquim Suárez on 06-22-2023 Microscopic observation Gram stain Nom (Unsp spec) [facility] Glucose Glucometer (BldC) [M ass/Vol]Ordered By: Joaquim Suárez on 06-08-2023 Glucose [Mass/Vol] 72 mg/dL 74-106 [facility] Comment on above: MANAGEMENT OF PATIEN T CARE PER NURSING PROTOCOL Absolute lymphocyte countOrd ered By: Russ Zamora on 04-17-2023 Lymphocytes Auto (Unsp spec) [#/Vol] 1.02 10*3/uL 0.83-4.51 [facility] Basophil percentageOrdered B y: Russ Zamora on 04-17-2023 Basophils/100 WBC (Bld) 0.5 % 0-1 [facility] Bilirubin [Mass/Vol] 0.30 mg/dL 0.20-1.00 [facility] Comment on above: For patients on eltr ombopag therapy, use of [employer] [place] TBIL is not recommended. Chloride [Moles/Vol] 102 mmol/L 98-107 [facility] Eosinophils/100 WBC (Bld) 2.6 % 0-5 [facility] Glucose [Mass/Vol] 209 mg/dL 74-106 [facility] Comment on above: Glucose result great er than or equal to 200 mg/dLsuggests DIABETES MELLITUS per A.D.A. criteria. LDH [Catalytic activity/Vol] 152 U/L 87-241 [facility] Neutrophils (Bld) [#/Vol] 6.0 10*3/uL 2.0-7.7 [facility] Neutrophils/100 WBC (Bld) 74.2 % 47-70 [facility] Potassium [Moles/Vol] 4.3 mmol/L 3.5-5.1 [facility] Protein [Mass/Vol] 7.8 g/dL 6.4-8.2 [facility] Sodium [Moles/Vol] 136 mmol/L 136-145 [facility] WBC (Bld) [#/Vol] 8.1 10*3/uL 4.4-11.0 [facility] Blood erythrocytes count (nu mber/volume)Ordered By: Russ Zamora on 04-17-2023 RBC (Bld) [#/Vol] 4.45 10*6/uL 4.6-6.2 [facility] Blood hemoglobin measurement (mass/volume)Ordered By: Russ Zamora on 04-17-2023 Hemoglobin (Bld) [Mass/Vol] 12.3 g/dL 13.0-16.5 [facility] Blood lymphocytes/100 leukoc ytesOrdered By: Russ Zamora on 04-17-2023 Lymphocytes/100 WBC (Bld) 12.6 % 19-41 [facility] Blood monocytes/100 leukocyt esOrdered By: Russ Zamora on 04-17-2023 Monocytes/100 WBC (Bld) 9.4 % 0-10 [facility] Blood platelet mean volumeOr dered By: Russ Zamora on 04-17-2023 Platelet mean volume (Bld) [Entitic vol] 9.5 fL 6.2-12.0 [facility] Determination of erythrocyte mean corpuscular volume (MCV)Ordered By: Russ Zamora on 04-17-2023 MCV (RBC) [Entitic vol] 89.9 fL 80-94 [facility] Hematocrit Auto (Bld) [Volum e fraction]Ordered By: Russ Zamora on 04-17-2023 Hematocrit (Bld) [Volume fraction] 40.0 % 40-54 [facility] Laboratory - Chemistry and C hemistry - challengeOrdered By: Russ Zamora on 04-17-2023 ALP [Catalytic activity/Vol] 58 U/L 45-117 [facility] ALT [Catalytic activity/Vol] 21 U/L 16-61 [facility] CO2 [Moles/Vol] 27.0 mmol/L 21.0-32.0 [facility] Globulin (S) [Mass/Vol] 4.5 g/dL 2.2-4.2 [facility] Urea nitrogen/Creatinine [Mass ratio] 20.3 mg/mg 10-20 [facility] Laboratory - Hematology and Cell countsOrdered By: Russ Zamora on 04-17-2023 Erythrocyte distribution width (RBC) [Entitic vol] 54.4 fL 35.1-43.9 [facility] Erythrocyte distribution width (RBC) [Ratio] 16.5 % 11.6-14.6 [facility] Immature granulocytes/100 WBC (Bld) 0.700 % 0.0-0.9 [facility] Comment on above: IG% - Immature Granu locytes (promyelocytes, myelocytes and metamyelocytes) > 1% indicates that a LEFT SHIFT is Present. MCH (RBC) [Entitic mass] 27.6 pg 27.0-32.0 [facility] Nucleated RBC/100 WBC (Bld) [Ratio] 0 % 0-5 [facility] MCHC Auto (RBC) [Mass/Vol]Or dered By: Russ Zamora on 04-17-2023 MCHC (RBC) [Mass/Vol] 30.8 g/dL 32-36 [facility] No Panel InformationOrdered By: Russ Zamora on 04-17-2023 Estimated Creatinine Clearance Calc 29.38 ml/min [facility] Estimated GFR (MDRD) Amer 45 mL/min >60 [facility] Comment on above: GFR Calc Estimated GFR (MDRD) Non-Af Amer 37 mL/min >60 [facility] Comment on above: Non- GFR Calc Platelets bldOrdered By: Frantz Zamora on 04-17-2023 Platelets (Bld) [#/Vol] 214 10*3/uL 150-450 [facility] Serum or plasma albumin kingsley urement (mass/volume)Ordered By: Russ Zamora on 04-17-2023 Albumin [Mass/Vol] 3.3 g/dL 3.2-5.0 [facility] Serum or plasma albumin/glob ulin mass ratioOrdered By: Russ Zamora on 04-17-2023 Albumin/Globulin [Mass ratio] 0.7 {ratio} 0.9-2.4 [facility] Serum or plasma calcium kingsley urement (mass/volume)Ordered By: Russ Zamora on 04-17-2023 Calcium [Mass/Vol] 9.1 mg/dL 8.5-10.1 [facility] Serum or plasma creatinine m easurement (mass/volume)Ordered By: Russ Zamora on 04-17-2023 Creatinine [Mass/Vol] 1.87 mg/dL 0.70-1.30 [facility] Comment on above: The validity of the calculated GFR & GFRAA in patients over 70 years has not been determined. Clinical correlation is essential. Serum or plasma urea nitroge n measurement (mass/volume)Ordered By: Russ Zamora on 04-17-2023 Urea nitrogen [Mass/Vol] 38 mg/dL 7-18 [facility] Thin prep Papanicolaou smear with manual screeningOrdered By: Russ Sera on 04-17-2023 Thin prep Papanicolaou smear with manual screening 16 U/L 15-37 [facility] Thin prep Papanicolaou smear with manual screening 7 5-15 [facility] Basophil percentageOrdered B y: Russ Zamora on 04-10-2023 Creatinine [Mass/Vol] 1.1 mg/dL 0.70-1.30 [facility] No Panel InformationOrdered By: Russ Zamora on 04-10-2023 Bedside Estimated GFR (eGFR) > 60.0000 mL/min >60 [facility] Anaerobic cultureOrdered By: Bonny Glynn on 01-13-2023 Bacteria identified Anaer cx Nom (Unsp spec) No anaerobic bacteria isolated. [facility] [facility] Bacteria identified Cx Nom ( Wound)Ordered By: Bonny Glynn on 01-11-2023 Wound Culture [facility] Gram stain for investigation of transfusion reactionOrdered By: Bonny Glynn on 01-09-2023 Microscopic observation Gram stain Nom (Unsp spec) [facility] Anaerobic cultureOrdered By: Bonny Glynn on 01-08-2023 Bacteria identified Anaer cx Nom (Unsp spec) No anaerobic bacteria isolated. [facility] Bacteria identified Cx Nom ( Wound)Ordered By: Bonny Glynn on 01-08-2023 Wound Culture St[facility] Gram stain for investigation of transfusion reactionOrdered By: Bonny Glynn on 01-08-2023 Microscopic observation Gram stain Nom (Unsp spec) [facility] Laboratory - Microbiology an d Antimicrobial susceptibilityOrdered By: Dr. Ochoa on 01-05-2023 Bacteria identified Cx Nom (Bld) No growth in 5 days. [facility] Culture, urineOrdered By: Dr Marianna Ochoa on 01-02-2023 Bacteria identified Cx Nom (U) Culture exhibits no growth. [facility] Influenza virus A and B and SARS-CoV-2 (COVID-19) Ag panel - Upper respiratory specimOrdered By: Dr. Ochoa on 12-31-2022 SARS-CoV-2 & FLU Antigen (Rapid) Influenzae A [facility] Absolute lymphocyte countOrd ered By: Dr. Ochoa on 12-30-2022 Lymphocytes Auto (Unsp spec) [#/Vol] 0.68 10*3/uL 0.83-4.51 [facility] Basophil percentageOrdered B y: Dr. Ochoa on 12-30-2022 Basophil percentage 0-5 SEEN /hpf 0-[address] [facility] Basophils/100 WBC (Bld) 0.5 % 0-1 [facility] Bilirubin [Mass/Vol] 0.50 mg/dL 0.20-1.00 [facility] Comment on above: For patients on eltr ombopag therapy, use of Dimension [place] TBIL is not recommended. Chloride [Moles/Vol] 102 mmol/L 98-107 [facility] Eosinophils/100 WBC (Bld) 0.2 % 0-5 [facility] Glucose [Mass/Vol] 119 mg/dL 74-106 [facility] Comment on above: Fasting Glucose resu lt from 100 to 125 mg/dL suggests IMPAIRED HOMEOSTASIS per A.D.A. criteria. Lactate [Moles/Vol] 1.4 mmol/L 0.4-2.0 [facility] Neutrophils (Bld) [#/Vol] 8.8 10*3/uL 2.0-7.7 [facility] Neutrophils/100 WBC (Bld) 83.3 % 47-70 [facility] Potassium [Moles/Vol] 5.2 mmol/L 3.5-5.1 [facility] Protein [Mass/Vol] 8.2 g/dL 6.4-8.2 [facility] Sodium [Moles/Vol] 134 mmol/L 136-145 [facility] WBC (Bld) [#/Vol] 10.6 10*3/uL 4.4-11.0 [facility] Bilirubin Test strip Ql (U)O rdered By: Dr. Ochoa on 12-30-2022 Bilirubin Ql (U) Negative Negative [facility] Blood erythrocytes count (nu mber/volume)Ordered By: Dr. Ochoa on 12-30-2022 RBC (Bld) [#/Vol] 4.36 10*6/uL 4.6-6.2 [facility] Blood hemoglobin measurement (mass/volume)Ordered By: Dr. Ochoa on 12-30-2022 Hemoglobin (Bld) [Mass/Vol] 12.1 g/dL 13.0-16.5 [facility] Blood lymphocytes/100 leukoc ytesOrdered By: Dr. Ochoa on 12-30-2022 Lymphocytes/100 WBC (Bld) 6.4 % 19-41 [facility] Blood monocytes/100 leukocyt esOrdered By: Dr. Ochoa on 12-30-2022 Monocytes/100 WBC (Bld) 9.1 % 0-10 [facility] Blood platelet mean volumeOr dered By: Dr. Ochoa on 12-30-2022 Platelet mean volume (Bld) [Entitic vol] 10.2 fL 6.2-12.0 [facility] Culture, urineOrdered By: Chino Ochoa on 12-30-2022 Bacteria identified Cx Nom (U) Culture exhibits no growth. [facility] Determination of erythrocyte mean corpuscular volume (MCV)Ordered By: Dr. Ochoa on 12-30-2022 MCV (RBC) [Entitic vol] 87.2 fL 80-94 [facility] Hematocrit Auto (Bld) [Volum e fraction]Ordered By: Dr. Ochoa on 12-30-2022 Hematocrit (Bld) [Volume fraction] 38.0 % 40-54 [facility] INR in Blood by Coagulation assayOrdered By: Dr. Ochoa on 12-30-2022 INR Coag (Bld) [Relative time] 1.3 {INR} [facility] Influenza virus A and B and SARS-CoV-2 (COVID-19) Ag panel - Upper respiratory specimOrdered By: Chris Ochoa on 12-30-2022 SARS-CoV-2 & FLU Antigen (Rapid) Influenzae A [facility] Ketones Test strip Ql (U)Ord ered By: Dr. Ochoa on 12-30-2022 Ketones Ql (U) Negative Negative [facility] Laboratory - Chemistry and C hemistry - challengeOrdered By: Dr. Ochoa on 12-30-2022 ALP [Catalytic activity/Vol] 53 U/L 45-117 [facility] ALT [Catalytic activity/Vol] 22 U/L 16-61 [facility] CO2 [Moles/Vol] 25.0 mmol/L 21.0-32.0 [facility] Globulin (S) [Mass/Vol] 4.7 g/dL 2.2-4.2 [facility] Urea nitrogen/Creatinine [Mass ratio] 22.0 mg/mg 10-20 [facility] Laboratory - CoagulationOrde red By: Dr. Ochoa on 12-30-2022 aPTT Coag (Bld) [Time] 38.9 s 24.1-36.[address] [facility] PT Coag (PPP) [Time] 15.8 s 11.7-14.9 [facility] Laboratory - Hematology and Cell countsOrdered By: Dr. Ochoa on 12-30-2022 Erythrocyte distribution width (RBC) [Entitic vol] 50.5 fL 35.1-43.9 [facility] Erythrocyte distribution width (RBC) [Ratio] 15.9 % 11.6-14.6 [facility] Immature granulocytes/100 WBC (Bld) 0.500 % 0.0-0.9 [facility] Comment on above: IG% - Immature Granu locytes (promyelocytes, myelocytes and metamyelocytes) > 1% indicates that a LEFT SHIFT is Present. MCH (RBC) [Entitic mass] 27.8 pg 27.0-32.0 [facility] Nucleated RBC/100 WBC (Bld) [Ratio] 0 % 0-5 [facility] Laboratory - Microbiology an d Antimicrobial susceptibilityOrdered By: Chris Ochoa on 12-30-2022 Bacteria identified Cx Nom (Bld) No growth in 5 days. [facility] MCHC Auto (RBC) [Mass/Vol]Or dered By: Dr. Ochoa on 12-30-2022 MCHC (RBC) [Mass/Vol] 31.8 g/dL 32-36 [facility] Mucus LM Ql (Urine sed)Order ed By: Dr. Ochoa on 12-30-2022 Mucus Ql (Urine sed) 0 SEEN /hpf [facility] Nitrite Test strip Ql (U)Ord ered By: Dr. Ochoa on 12-30-2022 Nitrite Ql (U) Negative Negative [facility] No Panel InformationOrdered By: Dr. Ochoa on 12-30-2022 Estimated Creatinine Clearance Calc 27.91 ml/min [facility] Estimated GFR (MDRD) Amer 42 mL/min >60 [facility] Comment on above: GFR Calc Estimated GFR (MDRD) Non-Af Amer 35 mL/min >60 [facility] Comment on above: Non- GFR Calc Platelets bldOrdered By: Dr. Ochoa on 12-30-2022 Platelets (Bld) [#/Vol] 210 10*3/uL 150-450 [facility] Protein Test strip Ql (U)Ord ered By: Dr. Ochoa on 12-30-2022 Protein Ql (U) 100 mg/dl Negative [facility] Serum or plasma albumin [place] urement (mass/volume)Ordered By: Dr. Ochoa on 12-30-2022 Albumin [Mass/Vol] 3.5 g/dL 3.2-5.0 [facility] Serum or plasma albumin/glob ulin mass ratioOrdered By: Dr. Ochoa on 12-30-2022 Albumin/Globulin [Mass ratio] 0.7 {ratio} 0.9-2.4 [facility] Serum or plasma calcium [place] urement (mass/volume)Ordered By: Dr. Ochoa on 12-30-2022 Calcium [Mass/Vol] 9.2 mg/dL 8.5-10.1 [facility] Serum or plasma creatinine m easurement (mass/volume)Ordered By: Dr. Ochoa on 12-30-2022 Creatinine [Mass/Vol] 2.00 mg/dL 0.70-1.30 [facility] Comment on above: The validity of the calculated GFR & GFRAA in patients over 70 years has not been determined. Clinical correlation is essential. Serum or plasma urea nitroge n measurement (mass/volume)Ordered By: Dr. Ochoa on 12-30-2022 Urea nitrogen [Mass/Vol] 44 mg/dL 7-18 [facility] Squamous epithelial cells de tection in urine sediment by light microscopyOrdered By: Dr. Ochoa on 12-30-2022 Epithelial cells.squamous LM Ql (Urine sed) 0 SEEN /hpf 0-5 [facility] Thin prep Papanicolaou smear with manual screeningOrdered By: Dr. Ochoa on 12-30-2022 Thin prep Papanicolaou smear with manual screening 22 U/L 15-37 [facility] Thin prep Papanicolaou smear with manual screening 7 5-15 [facility] Urine blood detectionOrdered By: Dr. Ochoa on 12-30-2022 RBC Ql (U) 25 /ul Negative [facility] RBC Ql (U) 0 SEEN /hpf 0-5 [facility] Urine clarityOrdered By: Dr. Ochoa on 12-30-2022 Clarity (U) Clear Clear [facility] Urine color determinationOrd ered By: Dr. Ochoa on 12-30-2022 Color (U) Yellow Yellow [facility] Urine glucose detectionOrder ed By: Dr. Ochoa on 12-30-2022 Glucose Ql (U) Normal mg/dl Normal [facility] Urine leukocyte esterase det ection by dipstickOrdered By: Dr. Ochoa on 12-30-2022 Leukocyte esterase Test strip Ql (U) 25 /ul Negative [facility] Urine pHOrdered By: Dr. Amy chowdhury on 12-30-2022 pH (U) 7.0 [pH] 5.0 - 8.0 [facility] Urine sediment bacteria coun t by microscopy (number/high power field)Ordered By: Dr. Ochoa on 12-30-2022 Bacteria LM.HPF (Urine sed) [#/Area] 0 /[HPF] None Seen [facility] Urine specific gravity measu rementOrdered By: Dr. Ochoa on 12-30-2022 Specific gravity (U) [Rel density] 1.005 1.002-1.03 0 [facility] Urobilinogen Auto test strip Ql (U)Ordered By: Dr. Ochoa on 12-30-2022 Urobilinogen Ql (U) Normal mg/dl Normal [facility] Absolute lymphocyte countOrd ered By: Dr. Zamora on 10-16-2022 Lymphocytes Auto (Unsp spec) [#/Vol] 1.25 10*3/uL 0.83-4.51 [facility] Basophil percentageOrdered B y: Dr. Zamora on 10-16-2022 Basophils/100 WBC (Bld) 0.6 % 0-1 [facility] Bilirubin [Mass/Vol] 0.30 mg/dL 0.20-1.00 [facility] Comment on above: For patients on eltr ombopag therapy, use of Dimension [place] TBIL is not recommended. Chloride [Moles/Vol] 106 mmol/L 98-107 [facility] Eosinophils/100 WBC (Bld) 1.4 % 0-5 [facility] Glucose [Mass/Vol] 225 mg/dL 74-106 [facility] Comment on above: Glucose result great er than or equal to 200 mg/dLsuggests DIABETES MELLITUS per A.D.A. criteria. LDH [Catalytic activity/Vol] 135 U/L 87-241 [facility] Neutrophils (Bld) [#/Vol] 5.1 10*3/uL 2.0-7.7 [facility] Neutrophils/100 WBC (Bld) 70.2 % 47-70 [facility] Potassium [Moles/Vol] 4.5 mmol/L 3.5-5.1 [facility] Protein [Mass/Vol] 7.8 g/dL 6.4-8.2 [facility] Sodium [Moles/Vol] 139 mmol/L 136-145 [facility] WBC (Bld) [#/Vol] 7.3 10*3/uL 4.4-11.0 [facility] Blood erythrocytes count (nu mber/volume)Ordered By: Dr. Zamora on 10-16-2022 RBC (Bld) [#/Vol] 3.94 10*6/uL 4.6-6.2 [facility] Blood hemoglobin measurement (mass/volume)Ordered By: Dr. Zamora on 10-16-2022 Hemoglobin (Bld) [Mass/Vol] 11.5 g/dL 13.0-16.5 [facility] Blood lymphocytes/100 leukoc ytesOrdered By: Dr. Zamora on 10-16-2022 Lymphocytes/100 WBC (Bld) 17.2 % 19-41 [facility] Blood monocytes/100 leukocyt esOrdered By: Dr. Zamora on 02-27-2023 Monocytes/100 WBC (Bld) 9.8 % 0-10 [facility] Blood platelet mean volumeOr dered By: Dr. Zamora on 10-16-2022 Platelet mean volume (Bld) [Entitic vol] 9.9 fL 6.2-12.0 [facility] Determination of erythrocyte mean corpuscular volume (MCV)Ordered By: Dr. Zamora on 10-16-2022 MCV (RBC) [Entitic vol] 91.1 fL 80-94 [facility] Hematocrit Auto (Bld) [Volum e fraction]Ordered By: Dr. Zamora on 10-16-2022 Hematocrit (Bld) [Volume fraction] 35.9 % 40-54 [facility] Laboratory - Chemistry and C hemistry - challengeOrdered By: Dr. Zamora on 10-16-2022 ALP [Catalytic activity/Vol] 52 U/L 45-117 [facility] ALT [Catalytic activity/Vol] 19 U/L 16-61 [facility] CO2 [Moles/Vol] 26.0 mmol/L 21.0-32.0 [facility] Globulin (S) [Mass/Vol] 4.5 g/dL 2.2-4.2 [facility] Urea nitrogen/Creatinine [Mass ratio] 17.5 mg/mg 10-20 [facility] Laboratory - Hematology and Cell countsOrdered By: Dr. Zamora on 10-16-2022 Erythrocyte distribution width (RBC) [Entitic vol] 50.4 fL 35.1-43.9 [facility] Erythrocyte distribution width (RBC) [Ratio] 15.2 % 11.6-14.6 [facility] Immature granulocytes/100 WBC (Bld) 0.800 % 0.0-0.9 [facility] Comment on above: IG% - Immature Granu locytes (promyelocytes, myelocytes and metamyelocytes) > 1% indicates that a LEFT SHIFT is Present. MCH (RBC) [Entitic mass] 29.2 pg 27.0-32.0 [facility] Nucleated RBC/100 WBC (Bld) [Ratio] 0 % 0-5 [facility] MCHC Auto (RBC) [Mass/Vol]Or dered By: Dr. Zamora on 10-16-2022 MCHC (RBC) [Mass/Vol] 32.0 g/dL 32-36 [facility] No Panel InformationOrdered By: Dr. Zamora on 10-16-2022 Estimated GFR (MDRD) Amer 45 mL/min >60 [facility] Comment on above: GFR Calc Estimated GFR (MDRD) Non-Af Amer 37 mL/min >60 [facility] Comment on above: Non- GFR Calc Platelets bldOrdered By: Dr. Zamora on 10-16-2022 Platelets (Bld) [#/Vol] 193 10*3/uL 150-450 [facility] Serum or plasma albumin [place] urement (mass/volume)Ordered By: Dr. Zamora on 10-16-2022 Albumin [Mass/Vol] 3.3 g/dL 3.2-5.0 [facility] Serum or plasma albumin/glob ulin mass ratioOrdered By: Dr. Zamora on 10-16-2022 Albumin/Globulin [Mass ratio] 0.7 {ratio} 0.9-2.4 [facility] Serum or plasma calcium [place] urement (mass/volume)Ordered By: Dr. Zamora on 10-16-2022 Calcium [Mass/Vol] 9.3 mg/dL 8.5-10.1 [facility] Serum or plasma creatinine m easurement (mass/volume)Ordered By: Dr. Zamora on 10-16-2022 Creatinine [Mass/Vol] 1.89 mg/dL 0.70-1.30 [facility] Comment on above: The validity of the calculated GFR & GFRAA in patients over 70 years has not been determined. Clinical correlation is essential. Serum or plasma urea nitroge n measurement (mass/volume)Ordered By: Dr. Zamora on 10-16-2022 Urea nitrogen [Mass/Vol] 33 mg/dL 7-18 [facility] Thin prep Papanicolaou smear with manual screeningOrdered By: Dr. Zamora on 10-16-2022 Thin prep Papanicolaou smear with manual screening 17 U/L 15-37 [facility] Thin prep Papanicolaou smear with manual screening 7 5-15 [facility] Basophil percentageOrdered B y: Dr. Zamora on 10-09-2022 Creatinine [Mass/Vol] 1.4 mg/dL 0.70-1.30 [facility] Laboratory - Chemistry and C hemistry - challengeOrdered By: Dr. Zamora on 10-09-2022 GFR/1.73 sq M.predicted among non-blacks MDRD (S/P/Bld) [Vol rate/Area] 52.0000 mL/min/{1.73_m2} >60 [facility] Culture, urineOrdered By: St gillian Glynn on 10-04-2022 Bacteria identified Cx Nom (U) Staphylococcus epidermidis [facility] Bacteria identified Cx Nom (U) GNR lactose surgery assistant [facility] Bilirubin Test strip Ql (U)O rdered By: Bonny Glynn on 10-02-2022 Bilirubin Ql (U) Negative Negative [facility] Ketones Test strip Ql (U)Ord ered By: Bonny Glynn on 10-02-2022 Ketones Ql (U) Negative Negative [facility] Nitrite Test strip Ql (U)Ord ered By: Bonny Glynn on 10-02-2022 Nitrite Ql (U) Positive Negative [facility] Protein Test strip Ql (U)Ord ered By: Bonny Glynn on 10-02-2022 Protein Ql (U) 100 mg/dl Negative [facility] Urine blood detectionOrdered By: Bonny Glynn on 10-02-2022 RBC Ql (U) 25 /ul Negative [facility] Urine clarityOrdered By: Ysabel Glynn on 10-02-2022 Clarity (U) Cloudy Clear [facility] Urine color determinationOrd ered By: Bonny Glynn on 10-02-2022 Color (U) Yellow Yellow [facility] Urine glucose detectionOrder ed By: Bonny Glynn on 10-02-2022 Glucose Ql (U) 50 mg/dl Normal [facility] Urine leukocyte esterase det ection by dipstickOrdered By: Bonny Glynn on 10-02-2022 Leukocyte esterase Test strip Ql (U) 500 /ul Negative [facility] Urine pHOrdered By: Bonny orosco on 10-02-2022 pH (U) 6.0 [pH] 5.0 - 8.0 [facility] Urine specific gravity measu rementOrdered By: Bonny Glynn on 10-02-2022 Specific gravity (U) [Rel density] 1.010 1.002-1.03 0 [facility] Urobilinogen Auto test strip Ql (U)Ordered By: Bonny Glynn on 10-02-2022 Urobilinogen Ql (U) Normal mg/dl Normal [facility] Telephone (UCWSTR) -- PEDRO HILLMAN ([id number]) 1945 M Date Time Provider Department 07/28/22 STEVEN RODRIGUEZ During your visit today, we recorded the following information about you: Steven Rodriguez APRN.CNP 07/28/2022 1:45 PM Signed In reviewing patient's [...] Osteoarthrosis, unspecified whether generalized*04/14/2014 Encounter Status:Closed by STEVEN RODRIGUEZ on 08/09/22 Normal [facility] Anaerobic cultureOrdered By: Bonny Glynn on 07-21-2022 Bacteria identified Anaer cx Nom (Unsp spec) No anaerobic bacteria isolated. [facility] Bacteria identified Cx Nom ( Wound)Ordered By: Bonny Glynn on 07-20-2022 Wound Culture Staphylococcus pseudintermediu [facility] Gram stain for investigation of transfusion reactionOrdered By: Bonny Glynn on 07-19-2022 Microscopic observation Gram stain Nom (Unsp spec) [facility] No Panel InformationOrdered By: Dr. Choi on 06-01-2022 Estimated GFR (MDRD) Amer 63 mL/min >60 [facility] Comment on above: GFR Calc Estimated GFR (MDRD) Non-Af Amer 52 mL/min >60 [facility] Comment on above: Non- GFR Calc Serum or plasma creatinine m easurement (mass/volume)Ordered By: Dr. Choi on 06-01-2022 Creatinine [Mass/Vol] 1.40 mg/dL 0.70-1.30 [facility] Comment on above: The validity of the calculated GFR & GFRAA in patients over 70 years has not been determined. Clinical correlation is essential. Basophil percentageon 2021 Basophil percentage < 0.9 mg/dL 0.70-1.30 [facility] Work Phone: No Panel Informationon 05-22 Bedside Estimated GFR (eGFR) > 60.0000 mL/min >60 [facility] Work Phone: Absolute lymphocyte counton 04-14-2022 Lymphocytes Auto (Unsp spec) [#/Vol] 0.64 10*3/uL 0.83-4.51 [facility] Work Phone: Basophil percentageon 2021 Basophil percentage 0 SEEN /hpf 0-5 [facility] Work Phone: Basophils/100 WBC (Bld) 0.3 % 0-1 [facility] Work Phone: Bilirubin [Mass/Vol] 0.50 mg/dL 0.20-1.00 [facility] Work Phone: Comment on above: For patients on eltr ombopag therapy, use of Dimension [place] TBIL is not recommended. Chloride [Moles/Vol] 103 mmol/L 98-107 [facility] Work Phone: Eosinophils/100 WBC (Bld) 0.5 % 0-5 [facility] Work Phone: Glucose [Mass/Vol] 46 mg/dL 74-106 [facility] Work Phone: Comment on above: Glucose result less than 50 mg/dL suggests HYPOGLYCEMIA. Neutrophils (Bld) [#/Vol] 5.0 10*3/uL 2.0-7.7 [facility] Work Phone: Neutrophils/100 WBC (Bld) 76.1 % 47-70 [facility] Work Phone: Potassium [Moles/Vol] 4.2 mmol/L 3.5-5.1 [facility] Work Phone: Protein [Mass/Vol] 8.2 g/dL 6.4-8.2 [facility] Work Phone: Sodium [Moles/Vol] 136 mmol/L 136-145 [facility] Work Phone: WBC (Bld) [#/Vol] 6.6 10*3/uL 4.4-11.0 [facility] Work Phone: Bilirubin Test strip Ql (U)o n 04-14-2022 Bilirubin Ql (U) Negative Negative [facility] Work Phone: Blood erythrocytes count (nu mber/volume)on 04-14-2022 RBC (Bld) [#/Vol] 5.00 10*6/uL 4.6-6.2 [facility] Work Phone: Blood hemoglobin measurement (mass/volume)on 04-14-2022 Hemoglobin (Bld) [Mass/Vol] 13.9 g/dL 13.0-16.5 [facility] Work Phone: Blood lymphocytes/100 leukoc yteson 04-14-2022 Lymphocytes/100 WBC (Bld) 9.7 % 19-41 [facility] Work Phone: Blood monocytes/100 leukocyt eson 04-14-2022 Monocytes/100 WBC (Bld) 12.3 % 0-10 [facility] Work Phone: Blood platelet mean volumeon 04-14-2022 Platelet mean volume (Bld) [Entitic vol] 10.5 fL 6.2-12.0 [facility] Work Phone: Determination of erythrocyte mean corpuscular volume (MCV)on 04-14-2022 MCV (RBC) [Entitic vol] 86.4 fL 80-94 [facility] Work Phone: Glucose Glucometer (BldC) [M ass/Vol]on 04-14-2022 Glucose [Mass/Vol] 113 mg/dL 74-106 [facility] Work Phone: Comment on above: MANAGEMENT OF PATIEN T CARE PER NURSING PROTOCOL Hematocrit Auto (Bld) [Volum e fraction]on 04-14-2022 Hematocrit (Bld) [Volume fraction] 43.2 % 40-54 [facility] Work Phone: INR in Blood by Coagulation assayon 04-14-2022 INR Coag (Bld) [Relative time] 1.1 {INR} [facility] Work Phone: Ketones Test strip Ql (U)on 04-14-2022 Ketones Ql (U) 5 mg/dl Negative [facility] Work Phone: [phone] Laboratory - Chemistry and C hemistry - challengeon 04-14-2022 ALP [Catalytic activity/Vol] 63 U/L 45-117 [facility] Work Phone: ALT [Catalytic activity/Vol] 29 U/L 16-61 [facility] Work Phone: CO2 [Moles/Vol] 25.0 mmol/L 21.0-32.0 [facility] Work Phone: Globulin (S) [Mass/Vol] 5.1 g/dL 2.2-4.2 [facility] Work Phone: [phone] Urea nitrogen/Creatinine [Mass ratio] 37.6 mg/mg 10-20 [facility] Work Phone: Laboratory - Coagulationon 0 04-14-2022 PT Coag (PPP) [Time] 14.0 s 11.7-14.9 [facility]: Laboratory - Hematology and Cell countson 04-14-2022 Erythrocyte distribution width (RBC) [Entitic vol] 49.0 fL 35.1-43.9 [facility] Work Phone: [phone] Erythrocyte distribution width (RBC) [Ratio] 15.4 % 11.6-14.6 [facility] Work Phone: Immature granulocytes/100 WBC (Bld) 1.100 % 0.0-0.9 [facility] Work Phone: [phone] Comment on above: IG% - Immature Granu locytes (promyelocytes, myelocytes and metamyelocytes) > 1% indicates that a LEFT SHIFT is Present. MCH (RBC) [Entitic mass] 27.8 pg 27.0-32.0 [facility] Work Phone: Nucleated RBC/100 WBC (Bld) [Ratio] 0 % 0-5 [facility] Work Phone: MCHC Auto (RBC) [Mass/Vol]on 04-14-2022 MCHC (RBC) [Mass/Vol] 32.2 g/dL 32-36 [facility] Work Phone: Mucus LM Ql (Urine sed)on Mucus Ql (Urine sed) 0 SEEN /hpf [facility] [facility] Work Phone: Nitrite Test strip Ql (U)on 04-14-2022 Nitrite Ql (U) Negative Negative [facility] Work Phone: No Panel Informationon 04-14 Estimated Creatinine Clearance Calc 35.56 ml/min [facility] Work Phone: Estimated GFR (MDRD) Amer 55 mL/min >60 [facility] Work Phone: Comment on above: GFR Calc Estimated GFR (MDRD) Non-Af Amer 46 mL/min >60 [facility] Work Phone: Comment on above: Non- GFR Calc Platelets bldon 04-14-2022 Platelets (Bld) [#/Vol] 293 10*3/uL 150-450 [facility] Work Phone: [phone] Platelets (Bld) [#/Vol] 287 10*3/uL 150-450 [facility] Work Phone: Protein Test strip Ql (U)on 04-14-2022 Protein Ql (U) 30 mg/dl Negative [facility] Work Phone: [phone] Serum or plasma albumin kingsley urement (mass/volume)on 04-14-2022 Albumin [Mass/Vol] 3.1 g/dL 3.2-5.0 [facility] Work Phone: [phone] Serum or plasma albumin/glob ulin mass ratioon 04-14-2022 Albumin/Globulin [Mass ratio] 0.6 {ratio} 0.9-2.4 [facility] Work Phone: [phone] Serum or plasma calcium kingsley urement (mass/volume)on 04-14-2022 Calcium [Mass/Vol] 9.9 mg/dL 8.5-10.1 [facility] Work Phone: Serum or plasma creatinine m easurement (mass/volume)on 04-14-2022 Creatinine [Mass/Vol] 1.57 mg/dL 0.70-1.30 [facility] Work Phone: Comment on above: The validity of the calculated GFR & GFRAA in patients over 70 years has not been determined. Clinical correlation is essential. Serum or plasma urea nitroge n measurement (mass/volume)on 04-14-2022 Urea nitrogen [Mass/Vol] 59 mg/dL 7-18 [facility] Work Phone: Squamous epithelial cells de tection in urine sediment by light microscopyon 04-14-2022 Epithelial cells.squamous LM Ql (Urine sed) 0-5 SEEN /hpf 0-5 [facility] Work Phone: Thin prep Papanicolaou smear with manual screeningon 04-14-2022 Thin prep Papanicolaou smear with manual screening 30 U/L 15-37 [facility] Work Phone: Thin prep Papanicolaou smear with manual screening 8 5-15 [facility] Work Phone: Urine blood detectionon 03-21 RBC Ql (U) Negative Negative [facility] Work Phone: RBC Ql (U) 0 SEEN /hpf 0-5 [facility] Work Phone: Urine clarityon 04-14-2022 Clarity (U) Clear Clear [facility] Work Phone: Urine color determinationon 04-14-2022 Color (U) Yellow Yellow [facility] Work Phone: Urine glucose detectionon Glucose Ql (U) Normal mg/dl Normal [facility] Work Phone: Urine leukocyte esterase det ection by dipstickon 04-14-2022 Leukocyte esterase Test strip Ql (U) 25 /ul Negative [facility] Work Phone: Urine pHon 04-14-2022 pH (U) 6.0 [pH] 5.0 - 8.0 [facility] Work Phone: Urine sediment bacteria coun t by microscopy (number/high power field)on 04-14-2022 Bacteria LM.HPF (Urine sed) [#/Area] 0 /[HPF] None Seen [facility] Work Phone: Urine specific gravity measu rementon 04-14-2022 Specific gravity (U) [Rel density] 1.010 1.002-1.03 0 [facility] Work Phone: Urobilinogen Auto test strip Ql (U)on 04-14-2022 Urobilinogen Ql (U) Normal mg/dl Normal [facility] Work Phone: Basophil percentageon 2021 Creatinine [Mass/Vol] 1.4 mg/dL 0.70-1.30 [facility] Work Phone: Laboratory - Chemistry and C hemistry - challengeon 04-12-2022 GFR/1.73 sq M.predicted among non-blacks MDRD (S/P/Bld) [Vol rate/Area] 50.0000 mL/min/{1.73_m2} >60 [facility] Work Phone: CNPLigia 04-06-2022 Liquid [facility] PEDRO HILLMAN ([id number]) 1945 M Date Time Provider Department 04/06/22 CARLOS WHELAN [facility] During your visit today, we recorded the following information about you: Carlos Whelan MD 04/06/2022 7:48 AM Signed COVID [...] unable to reach patient and contact lens polisher is spouse with same number.Sigrid Mock 04/07/2022 5:49 PM Signed Unable to reach patient. Mailbox full/Mailbox not set up/ Number incorrect. Please try again later. Jenny Mock 04/08/2022 9:23 AM Signed left message on machine to give call back, different number from pharmacy. [phone]. Jenny Mock 04/08/2022 2:56 PM Signed Notified pt of results, daughter will call to get information on restrictions. Jenny Mock Allergies As of Date: 04/06/2022 Noted [...] Osteoarthrosis, unspecified whether generalized*04/14/2014 Encounter Status:Closed by JENNY MOCK on 04/08/22 Normal [facility] Bacteria Ur Culton 2 Bacteria identified Cx Nom (U) [id number] Abnormal [facility] Comment on above: Order Comment: Speci men Type: URINE SPECIMEN Ordering Facility: [facility] Address: [address] [place], [place] [id number] Result Comment: >=10 0,000 CFU/ml Streptococcus mitis-oralis group No further workup Performed By: #### 6 30-4 #### [facility] CLIA [id number] [address] [place] [address] CNOVon 04-05-2022 CNOV Office Visit ([facility] ) -- PEDRO HILLMAN ([id number]) 1945 M Date Time Provider Department 04/05/22 1:15 PM STEVEN RODRIGUEZ [facility] During your visit today, we recorded the following information about you: Temperature Pulse Respiration Blood pressure 101.6 degrees 76/minute 16/minute 122/76 Weight 87.1 kg Steven Rodriguez APRN.ULTRASOUND TECHNOLOGIST 04/05/2022 3:51 PM Signed Subjective HPI Pedro [...] ICD10: Z20.822 - COVID WITH FLUA+B, ROUTINE Steven Rodriguez APRN.ULTRASOUND TECHNOLOGIST Steven Rodriguez APRN.SHANI 04/05/2022 2:27 PM Addendum ASSESSMENT/PLAN: [...] up a (more content not included)... [facility] TASIA Telephone ([facility]) -- KADYPEDRO ([id number]) 1945 M Date Time Provider Department 04/05/22 STEVEN RODRIGUEZ [facility] During your visit today, we recorded the following information about you: Steven Rodriguez APRN.CNP 04/05/2022 2:59 PM Signed Radiology report faxed to patient's PCP Dr. Tonio Fajardo at [phone]. Confirmation of fax received. Patient was advised to call Dr. Fajardo today for a follow up appointment. Steven Rodriguez APRN.CNP Allergies As of Date: 04/05/2022 [...] Osteoarthrosis, unspecified whether generalized*04/14/2014 Encounter Status:Closed by STEVEN RODRIGUEZ on 04/05/[address] [facility] Panel InformationOrdered By: Ccf Provider on 04-05-2022 Radiology Result ACTIONABLE Abnormal [facility] Comment on above: This report contains an [...] (POC)on 2021 BILIRUBIN UA (POCT) Negative Negative [facility] CLARITY UA (POCT) Cloudy [facility] COLOR UA (POCT) Dark yellow [facility] GLUCOSE UA (POCT) Negative Negative mg/dL [facility] HEMOGLOBIN/BLOOD UA (POCT) Small Abnormal Negative [facility] KETONE UA (POCT) Negative Negative mg/dL [facility] LEUKOCYTES UA (POCT) Large Abnormal Negative [facility] NITRITE UA (POCT) Negative Negative [facility] PH UA (POCT) 6.0 4.5 - 8.0 [facility] Protein Ql (U) 100 mg/dL Abnormal Negative mg/dL [facility] SPECIFIC GRAVITY UA (POCT) 1.020 1.005 - 1.030 [facility] UROBILINOGEN UA (POCT) 0.2 E.U./dL Umm l E.U./dL [facility] XR CHEST 2V FRONTAL/LATon XR CHEST [...] be communicated with the ordering provider via KeyCAPTCHA staff message or phone message by [employer] within 2 business days of report finalization. Algorithms for management of incidental imaging findings can be found on the [facility] Intranet Sharepoint site at: [email or web address] ng%20Incidental%20Findi ngs%20at%20Imaging/Forms/A llItems.aspx Geologist: JONATHAN Transcribe Date/Time: Apr 05 2022 2:11P Dictated by : SANDEEP ORTIZ MD This examination was interpreted and the report reviewed and electronically signed by: SANDEEP ORTIZ MD on Apr 05 2022 2:13PM EST [id number] ACTIONABLE Invalid Interpretation Code [facility] XR Chest PA and LateralOrder ed By: [facility] Provider on 04-05-2022 Interpretation and review of laboratory results Abnormal [facility] XR Chest PA and Lateralon IMPRESSION: [...] be communicated with the ordering provider via KeyCAPTCHA staff message or phone message by [employer] [facility] within 2 business days of report finalization. Algorithms for management of incidental imaging findings can be found on the [facility] Intranet Sharepoint site at: [email or web address] ng%20Incidental%20Findi ngs%20at%20Imaging/Forms/A llItems.aspx Geologist: JONATHAN Transcribe Date/Time: Apr 05 2022 2:11P Dictated by : SANDEEP ORTIZ MD This examination was interpreted and the report reviewed and electronically signed by: SANDEEP ORTIZ MD on Apr 05 2022 2:13PM [facility] DIVISION OF RADIOLOGY * * *Final [...] the thoracic spine. DIVISION OF RADIOLOGY Provider, [facility] - 04/05/2022 * * *Final Report* [...] be communicated with the ordering provider via KeyCAPTCHA staff message or phone message by [employer] [facility] within 2 business days of report finalization. Algorithms for management of incidental imaging findings can be found on the [facility] Intranet Sharepoint site at: [email or web address]/Managi ng%20Incidental%20Findi ngs%20at%20Imaging/Forms/A llItems.aspx Geologist: PSCEllen Transcribe Date/Time: Apr 05 2022 2:11P Dictated by : SANDEEP ORTIZ MD This examination was interpreted and the report reviewed and electronically signed by: SANDEEP ORTIZ MD on Apr 05 2022 2:13PM EST [facility] Radiology Study observation (narrative) [facility] Anaerobic culture Bacteria identified Anaer cx Nom (Unsp spec) No anaerobic bacteria isolated. [facility] Work Phone: Bacteria identified Anaer cx Nom (Unsp spec) Anaerobic Culture Anaerobic cocci [facility] Work Phone: Bacteria identified Cx Nom ( Wound) Wound Culture Staphylococcus pseudintermediu [facility] Work Phone: Wound Culture Staphylococcus saprophyticus [facility] Work Phone: Gram stain for investigation of transfusion reaction Microscopic observation Gram stain Nom (Unsp spec) [facility] Work Phone: Vital Signs Date Time Vital Sign Value Performing Clinician Facility 04-13-2025 02:37-0400 Inhaled oxygen flow rate 15 L/min Dr. Tonio Fajardo DO Work Phone: [facility] 04-13-2025 02:37-0400 SaO2% (BldA) [Mass fraction] 100 % Dr. Tonio Fajardo DO Work Phone: [facility] 04-13-2025 00:56-0400 Body temperature 97.8 [degF] Dr. Tonio Fajardo DO Work Phone: [facility] 04-13-2025 00:56-0400 Diastolic blood pressure 71 mm[Hg] Dr. Tonio Fajardo DO Work Phone: [facility] 04-13-2025 00:56-0400 Heart rate 106 /min Dr. Tonio Fajardo DO Work Phone: [facility] 04-13-2025 00:56-0400 Respiratory rate 21 /min Dr. Tonio Fajardo DO Work Phone: [facility] 04-13-2025 00:56-0400 Systolic blood pressure 129 mm[Hg] Dr. Tonio Fajardo DO Work Phone: [facility] 04-12-2025 23:03-0400 Body temperature 97.8 [degF] Dr. Tonio Fajardo DO Work Phone: [facility] 04-12-2025 23:03-0400 Diastolic blood pressure 80 mm[Hg] Dr. Tonio Fajardo DO Work Phone: [facility] 04-12-2025 23:03-0400 Heart rate 109 /min Dr. Tonio Fajardo DO Work Phone: [facility] 04-12-2025 23:03-0400 Respiratory rate 21 /min Dr. Tonio Fajardo DO Work Phone: [facility] 04-12-2025 23:03-0400 SaO2% (BldA) [Mass fraction] 100 % Dr. Tonio Fajardo DO Work Phone: [facility] 04-12-2025 23:03-0400 Systolic blood pressure 142 mm[Hg] Dr. Tonio Fajardo DO Work Phone: [facility] 04-12-2025 22:00-0400 Inhaled oxygen flow rate 15 L/min Dr. Tonio Fajardo DO Work Phone: [facility] 04-12-2025 18:05-0400 Body height 167.[address] Tonio Fajardo DO Work Phone: [facility] 04-12-2025 18:05-0400 Body mass index (BMI) [Ratio] 25.4 kg/m2 Dr. Tonio Fajardo DO Work Phone: [facility] 04-12-2025 18:05-0400 Body weight 71.[address] Tonio Fajardo DO Work Phone: [facility] 04-12-2025 16:46-0400 Heart rate 115 /min Dr. Tonio Fajardo DO Work Phone: [facility] 04-12-2025 15:40-0400 Diastolic blood pressure 74 mm[Hg] Dr. Tonio Fajardo DO Work Phone: [facility] 04-12-2025 15:40-0400 Inhaled oxygen flow rate 3 L/min Dr. Tonio Fajardo DO Work Phone: [facility] 04-12-2025 15:40-0400 Respiratory rate 22 /min Dr. Tonio Fajardo DO Work Phone: [facility] 04-12-2025 15:40-0400 SaO2% (BldA) [Mass fraction] 96 % Dr. Tonio Fajardo DO Work Phone: [facility] 04-12-2025 15:40-0400 Systolic blood pressure 146 mm[Hg] Dr. Tonio Fajardo DO Work Phone: [facility] 04-12-2025 08:52-0400 Body temperature 96.7 [degF] Dr. Tonio Fajardo DO Work Phone: [facility] 04-11-2025 12:48-0400 Body weight 70.[address] Tonio Fajardo DO Work Phone: [facility] 04-10-2025 23:00-0400 Body mass index (BMI) [Ratio] 25.2 kg/m2 Dr. Tonio Fajardo DO Work Phone: [facility] 04-10-2025 16:21-0400 Body temperature 98.6 [degF] Dr. Tonio Fajardo DO Work Phone: [facility] 04-10-2025 16:21-0400 Diastolic blood pressure 82 mm[Hg] Dr. Tonio Fajardo DO Work Phone: [facility] 04-10-2025 16:21-0400 Heart rate 106 /min Dr. Tonio Fajardo DO Work Phone: [facility] 04-10-2025 16:21-0400 Inhaled oxygen flow rate 3 L/min Dr. Tonio Fajardo DO Work Phone: [facility] 04-10-2025 16:21-0400 Respiratory rate 18 /min Dr. Tonio Fajardo DO Work Phone: [facility] 04-10-2025 16:21-0400 SaO2% (BldA) [Mass fraction] 100 % Dr. Tonio Fajardo DO Work Phone: [facility] 04-10-2025 16:21-0400 Systolic blood pressure 142 mm[Hg] Dr. Tonio Fajardo DO Work Phone: [facility] 04-10-2025 14:30-0400 Body height 167.[address] Tonio Fajardo DO Work Phone: [facility] 04-10-2025 14:30-0400 Body weight 75.[address] Tonio Fajardo DO Work Phone: [facility] 04-10-2025 05:10-0400 Body mass index (BMI) [Ratio] 26.7 kg/m2 Dr. Tonio Fajardo DO Work Phone: [facility] 04-07-2025 00:00-0400 Inhaled oxygen concentration 35 % Dr. Tonio Fajardo DO Work Phone: [facility] 04-05-2025 20:00-0400 Diastolic blood pressure 65 mm[Hg] Dr. Tonio Fajardo DO Work Phone: [facility] 04-05-2025 20:00-0400 Heart rate 103 /min Dr. Tonio Fajardo DO Work Phone: [facility] 04-05-2025 20:00-0400 Inhaled oxygen flow rate 4 L/min Dr. Tonio Fajardo DO Work Phone: [facility] 04-05-2025 20:00-0400 Respiratory rate 25 /min Dr. Tonio Fajardo DO Work Phone: [facility] 04-05-2025 20:00-0400 SaO2% (BldA) [Mass fraction] 92 % Dr. Tonio Fajardo DO Work Phone: [facility] 04-05-2025 20:00-0400 Systolic blood pressure 119 mm[Hg] Dr. Tonio Fajardo DO Work Phone: [facility] 04-05-2025 19:12-0400 Body temperature 98 [degF] Dr. Tonio Fajardo DO Work Phone: [facility] 04-05-2025 16:41-0400 Body height 167.[address] Tonio Fajardo DO Work Phone: [facility] 04-05-2025 16:41-0400 Body mass index (BMI) [Ratio] 28 kg/m2 Dr. Tonio Fajardo DO Work Phone: [facility] 04-05-2025 16:41-0400 Body weight 78.[address] Tonio Fajardo DO Work Phone: [facility] 03-17-2025 13:07-0400 Body height 167.[address] Tonio Fajardo DO Work Phone: [facility] 03-17-2025 13:07-0400 Body mass index (BMI) [Ratio] 26.6 kg/m2 Dr. Tonio Fajardo DO Work Phone: [facility] 03-17-2025 13:07-0400 Body weight 74.[address] Tonio Fajardo DO Work Phone: [facility] 03-17-2025 13:07-0400 Diastolic blood pressure 60 mm[Hg] Dr. Tonio Fajardo DO Work Phone: [facility] 03-17-2025 13:07-0400 Heart rate 101 /min Dr. Tonio Fajardo DO Work Phone: [facility] 03-17-2025 13:07-0400 Inhaled oxygen flow rate 3 L/min Dr. Tonio Fajardo DO Work Phone: [facility] 03-17-2025 13:07-0400 Respiratory rate 20 /min Dr. Tonio Fajardo DO Work Phone: [facility] 03-17-2025 13:07-0400 SaO2% (BldA) [Mass fraction] 96 % Dr. Tonio Fajardo DO Work Phone: [facility] 03-17-2025 13:07-0400 Systolic blood pressure 124 mm[Hg] Dr. Tonio Fajardo DO Work Phone: [facility] 03-15-2025 18:32-0400 Body temperature 98.1 [degF] Dr. Tonio Fajardo DO Work Phone: [facility] 03-15-2025 18:32-0400 Diastolic blood pressure 71 mm[Hg] Dr. Tonio Fajardo DO Work Phone: [facility] 03-15-2025 18:32-0400 Heart rate 101 /min Dr. Tonio Fajardo DO Work Phone: [facility] 03-15-2025 18:32-0400 Respiratory rate 18 /min Dr. Tonio Fajardo DO Work Phone: [facility] 03-15-2025 18:32-0400 SaO2% (BldA) [Mass fraction] 93 % Dr. Tonio Fajardo DO Work Phone: [facility] 03-15-2025 18:32-0400 Systolic blood pressure 168 mm[Hg] Dr. Tonio Fajardo DO Work Phone: [facility] 03-15-2025 16:58-0400 Body height 167.[address] Tonio Fajardo DO Work Phone: [facility] 03-15-2025 16:58-0400 Body mass index (BMI) [Ratio] 27.8 kg/m2 Dr. Tonio Fajardo DO Work Phone: [facility] 03-15-2025 16:58-0400 Body weight 78.[address] Tonio Faajrdo DO Work Phone: [facility] 03-15-2025 16:58-0400 Inhaled oxygen flow rate 3 L/min Dr. Tonio Fajardo DO Work Phone: [facility] 03-09-2025 16:22-0400 Body temperature 98.5 [degF] Dr. Tonio Fajardo DO Work Phone: [facility] 03-09-2025 16:22-0400 Heart rate 78 /min Dr. Tonio Fajardo DO Work Phone: [facility] 03-09-2025 16:22-0400 Inhaled oxygen flow rate 3 L/min Dr. Tonio Fajardo DO Work Phone: [facility] 03-09-2025 16:22-0400 Respiratory rate 20 /min Dr. Tonio Fajardo DO Work Phone: [facility] 03-09-2025 16:22-0400 SaO2% (BldA) [Mass fraction] 92 % Dr. Tonio Fajardo DO Work Phone: [facility] 03-09-2025 11:48-0400 Inhaled oxygen flow rate 2 L/min Dr. Tonio Fajardo DO Work Phone: [facility] 03-09-2025 11:48-0400 SaO2% (BldA) [Mass fraction] 79 % Dr. Tonio Fajardo DO Work Phone: [facility] 03-09-2025 11:11-0400 Body height 167.[address] Tonio Fajardo DO Work Phone: [facility] 03-09-2025 11:11-0400 Body weight 78.[address] Tonio Fajardo DO Work Phone: [facility] 03-09-2025 10:00-0400 Diastolic blood pressure 51 mm[Hg] Dr. Tonio Fajardo DO Work Phone: [facility] 03-09-2025 10:00-0400 Heart rate 97 /min Dr. Tonio Fajardo DO Work Phone: [facility] 03-09-2025 10:00-0400 Systolic blood pressure 129 mm[Hg] Dr. Tonio Fajardo DO Work Phone: [facility] 03-09-2025 05:00-0400 Body mass index (BMI) [Ratio] 28 kg/m2 Dr. Tonio Fajardo DO Work Phone: [facility] 03-04-2025 20:49-0400 Body temperature 98.6 [degF] Dr. Tonio Fajardo DO Work Phone: [facility] 03-04-2025 20:49-0400 Diastolic blood pressure 70 mm[Hg] Dr. Tonio Fajardo DO Work Phone: [facility] 03-04-2025 20:49-0400 Heart rate 114 /min Dr. Tonio Fajardo DO Work Phone: [facility] 03-04-2025 20:49-0400 Respiratory rate 20 /min Dr. Tonio Fajardo DO Work Phone: [facility] 03-04-2025 20:49-0400 SaO2% (BldA) [Mass fraction] 100 % Dr. Tonio Fajardo DO Work Phone: [facility] 03-04-2025 20:49-0400 Systolic blood pressure 153 mm[Hg] Dr. Tonio Fajardo DO Work Phone: [facility] 03-04-2025 20:00-0400 Inhaled oxygen flow rate 4 L/min Dr. Tonio Fajardo DO Work Phone: [facility] 03-04-2025 15:01-0400 Body height 167.[address] Tonio Fajardo DO Work Phone: [facility] 03-04-2025 15:01-0400 Body mass index (BMI) [Ratio] 25.9 kg/m2 Dr. Tonio Fajardo DO Work Phone: [facility] 03-04-2025 15:01-0400 Body weight 73.[address] Tonio Fajardo DO Work Phone: [facility] 11-06-2024 14:45-0400 Body height 167.[address] Tonio Fajardo DO Work Phone: [facility] 11-06-2024 14:45-0400 Body mass index (BMI) [Ratio] 28.5 kg/m2 Dr. Tonio Fajardo DO Work Phone: [facility] 11-06-2024 14:45-0400 Body temperature 98.5 [degF] Dr. Tonio Fajardo DO Work Phone: [facility] 11-06-2024 14:45-0400 Body weight 80.[address] Tonio Fajardo DO Work Phone: [facility] 11-06-2024 14:45-0400 Diastolic blood pressure 55 mm[Hg] Dr. Tonio Fajardo DO Work Phone: [facility] 11-06-2024 14:45-0400 Heart rate 55 /min Dr. Tonio Fajardo DO Work Phone: [facility] 11-06-2024 14:45-0400 Respiratory rate 18 /min Dr. Tonio Fajardo DO Work Phone: [facility] 11-06-2024 14:45-0400 SaO2% (BldA) [Mass fraction] 95 % Dr. Tonio Fajardo DO Work Phone: [facility] 11-06-2024 14:45-0400 Systolic blood pressure 116 mm[Hg] Dr. Tonio Fajardo DO Work Phone: [facility] 10-23-2024 09:06-0500 Body mass index (BMI) [Ratio] 28.5 kg/m2 Dr. Tonio Fajardo DO Work Phone: [facility] 10-23-2024 09:06-0500 Body temperature 97.4 [degF] Dr. Tonio Fajardo DO Work Phone: [facility] 10-23-2024 09:06-0500 Body weight 80.[address] Tonio Fajardo DO Work Phone: [facility] 10-23-2024 09:06-0500 Diastolic blood pressure 56 mm[Hg] Dr. Tonio Fajardo DO Work Phone: [facility] 10-23-2024 09:06-0500 Heart rate 52 /min Dr. Tonio Fajardo DO Work Phone: [facility] 10-23-2024 09:06-0500 Inhaled oxygen flow rate 3 L/min Dr. Tonio Fajardo DO Work Phone: [facility] 10-23-2024 09:06-0500 Respiratory rate 26 /min Dr. Tonio Fajardo DO Work Phone: [facility] 10-23-2024 09:06-0500 SaO2% (BldA) [Mass fraction] 97 % Dr. Tonio Fajardo DO Work Phone: [facility] [facility] 09:06-0500 Systolic blood pressure 128 mm[Hg] Dr. Tonio Fjaardo DO Work Phone: [facility] 10-16-2024 13:24-0500 Body height 167.[address] Tonio Fajardo DO Work Phone: [facility] 10-16-2024 13:24-0500 Body weight 78.[address] Tonio Fajardo DO Work Phone: [facility] 10-16-2024 13:24-0500 Heart rate 98 /min Dr. Tonio Fajardo DO Work Phone: [facility] 10-16-2024 13:24-0500 Inhaled oxygen flow rate 2 L/min Dr. Tonio Fajardo DO Work Phone: [facility] 10-16-2024 13:24-0500 SaO2% (BldA) [Mass fraction] 96 % Dr. Tonio Fajardo DO Work Phone: [facility] 09-25-2024 12:59-0500 Body mass index (BMI) [Ratio] 27.7 kg/m2 Dr. Tonio Fajardo DO Work Phone: [facility] 09-25-2024 12:59-0500 Body weight 80.[address] Tonio Fajardo DO Work Phone: [facility] 09-25-2024 12:59-0500 Diastolic blood pressure 75 mm[Hg] Dr. Tonio Fajardo DO Work Phone: [facility] 09-25-2024 12:59-0500 Heart rate 99 /min Dr. Tonio Fajardo DO Work Phone: [facility] 09-25-2024 12:59-0500 Respiratory rate 18 /min Dr. Tonio Fajardo DO Work Phone: [facility] 09-25-2024 12:59-0500 SaO2% (BldA) [Mass fraction] 90 % Dr. Tonio Fajardo DO Work Phone: [facility] 09-25-2024 12:59-0500 Systolic blood pressure 120 mm[Hg] Dr. Tonio Fajardo DO Work Phone: [facility] 11-12-2023 13:22-0400 Body height 170.[address] Tonio Fajardo Work Phone: [facility] 11-12-2023 13:22-0400 Body mass index (BMI) [Ratio] 28 kg/m2 Dr. Tonio Fajardo Work Phone: [facility] 11-12-2023 13:22-0400 Body temperature 97.9 [degF] Dr. Tonio Fajardo Work Phone: [facility] 11-12-2023 13:22-0400 Body weight 81.[address] Tonio Fajardo Work Phone: [facility] 11-12-2023 13:22-0400 Diastolic blood pressure 62 mm[Hg] Dr. Tonio Fajardo Work Phone: [facility] 11-12-2023 13:22-0400 Heart rate 103 /min Dr. Tonio Fajardo Work Phone: [facility] 11-12-2023 13:22-0400 Respiratory rate 18 /min Dr. Tonio Fajardo Work Phone: [facility] 11-12-2023 13:22-0400 SaO2% (BldA) [Mass fraction] 98 % Dr. Tonio Fajardo Work Phone: [facility] 11-12-2023 13:22-0400 Systolic blood pressure 97 mm[Hg] Dr. Tonio Fajardo Work Phone: [facility] 10-31-2023 12:05-0400 Body mass index (BMI) [Ratio] 27.3 kg/m2 Dr. Tonio Fajardo Work Phone: [facility] 10-31-2023 12:05-0400 Body temperature 98.2 [degF] Dr. Tonio Fajardo Work Phone: [facility] 10-31-2023 12:05-0400 Body weight 79.[address] Tonio Fajardo Work Phone: [facility] 10-31-2023 12:05-0400 Diastolic blood pressure 71 mm[Hg] Dr. Tonio Fajardo Work Phone: [facility] 10-31-2023 12:05-0400 Heart rate 78 /min Dr. Tonio Fajardo Work Phone: [facility] 10-31-2023 12:05-0400 Respiratory rate 18 /min Dr. Tonio Fajardo Work Phone: [facility] 10-31-2023 12:05-0400 SaO2% (BldA) [Mass fraction] 94 % Dr. Tonio Fajardo Work Phone: [facility] 10-31-2023 12:05-0400 Systolic blood pressure 119 mm[Hg] Dr. Tonio Fajardo Work Phone: [facility] 10-18-2023 14:51-0500 Body mass index (BMI) [Ratio] 28 kg/m2 Dr. Tonio Fajardo Work Phone: [facility] 10-18-2023 14:51-0500 Body temperature 98.9 [degF] Dr. Tonio Fajardo Work Phone: [facility] 10-18-2023 14:51-0500 Body weight 81.[address] Tonio Fajardo Work Phone: [facility] 10-18-2023 14:51-0500 Diastolic blood pressure 60 mm[Hg] Dr. Tonio Fajardo Work Phone: [facility] 10-18-2023 14:51-0500 Heart rate 98 /min Dr. Tonio Fajardo Work Phone: [facility] 10-18-2023 14:51-0500 Respiratory rate 18 /min Dr. Tonio Fajardo Work Phone: [facility] 10-18-2023 14:51-0500 SaO2% (BldA) [Mass fraction] 96 % Dr. Tonio Fajardo Work Phone: [facility] 10-18-2023 14:51-0500 Systolic blood pressure 114 mm[Hg] Dr. Tonio Fajardo Work Phone: [facility] 08-29-2023 12:52-0500 Body height 170.[address] Tonio Fajardo Work Phone: [facility] 08-29-2023 12:52-0500 Body mass index (BMI) [Ratio] 27.8 kg/m2 Dr. Tonio Fajardo Work Phone: [facility] 08-29-2023 12:52-0500 Body weight 80.[address] Toino Fajrado Work Phone: [facility] 08-29-2023 12:52-0500 Diastolic blood pressure 71 mm[Hg] Dr. Tonio Fajardo Work Phone: [facility] 08-29-2023 12:52-0500 Heart rate 95 /min Dr. Tonio Fajardo Work Phone: [facility] 08-29-2023 12:52-0500 Respiratory rate 18 /min Dr. Tonio Fajardo Work Phone: [facility] 08-29-2023 12:52-0500 SaO2% (BldA) [Mass fraction] 97 % Dr. Tonio Fajardo Work Phone: [facility] 08-29-2023 12:52-0500 Systolic blood pressure 111 mm[Hg] Dr. Tonio Fajardo Work Phone: [facility] 07-25-2023 07:50-0500 Body height 170.[address] Tonio Fajardo Work Phone: [facility] 07-25-2023 07:50-0500 Body mass index (BMI) [Ratio] 29.4 kg/m2 Dr. Tonio Fajardo Work Phone: [facility] 07-25-2023 07:50-0500 Body temperature 96.2 [degF] Dr. Tonio Fajardo Work Phone: [facility] 07-25-2023 07:50-0500 Body weight 85.[address] Tonio Fajardo Work Phone: [facility] 07-25-2023 07:50-0500 Diastolic blood pressure 75 mm[Hg] Dr. Tonio Fajardo Work Phone: [facility] 07-25-2023 07:50-0500 Heart rate 53 /min Dr. Tonio Fajardo Work Phone: [facility] 07-25-2023 07:50-0500 Respiratory rate 20 /min Dr. Tonio Fajardo Work Phone: [facility] 07-25-2023 07:50-0500 SaO2% (BldA) [Mass fraction] 82 % Dr. Tonio Fajardo Work Phone: [facility] 07-25-2023 07:50-0500 Systolic blood pressure 119 mm[Hg] Dr. Tonio Fajardo Work Phone: [facility] 06-08-2023 14:33-0400 Body temperature 97.1 [degF] Dr. Tonio Fajardo Work Phone: [facility] 06-08-2023 14:33-0400 Diastolic blood pressure 67 mm[Hg] Dr. Tonio Fajardo Work Phone: [facility] 06-08-2023 14:33-0400 Heart rate 103 /min Dr. Tonio Fajardo Work Phone: [facility] 06-08-2023 14:33-0400 Respiratory rate 14 /min Dr. Tonio Fajardo Work Phone: [facility] 06-08-2023 14:33-0400 SaO2% (BldA) [Mass fraction] 93 % Dr. Tonio Fajardo Work Phone: [facility] 06-08-2023 14:33-0400 Systolic blood pressure 133 mm[Hg] Dr. Tonio Fajardo Work Phone: [facility] 06-08-2023 12:20-0400 Body height 170.[address] Tonio Fajardo Work Phone: [facility] 06-08-2023 12:20-0400 Body mass index (BMI) [Ratio] 29.3 kg/m2 Dr. Tonio Fajardo Work Phone: [facility] 06-08-2023 12:20-0400 Body weight [address] Tonio Fajardo Work Phone: [facility] 05-02-2023 13:50-0400 Diastolic blood pressure 63 mm[Hg] Dr. Tonio Fajardo Work Phone: [facility] 05-02-2023 13:50-0400 Heart rate 97 /min Dr. Tonio Fajardo Work Phone: [facility] 05-02-2023 13:50-0400 Respiratory rate 18 /min Dr. Tonio Fajardo Work Phone: [facility] 05-02-2023 13:50-0400 Systolic blood pressure 113 mm[Hg] Dr. Tonio Fajardo Work Phone: [facility] 04-25-2023 14:04-0400 Body temperature 97.9 [degF] Dr. Tonio Fajardo Work Phone: [facility] 04-18-2023 13:24-0400 Body temperature 97.5 [degF] Dr. Tonio Fajardo Work Phone: [facility] 04-18-2023 13:24-0400 Diastolic blood pressure 77 mm[Hg] Dr. Tonio Fajardo Work Phone: [facility] 04-18-2023 13:24-0400 Heart rate 109 /min Dr. Tonio Fajardo Work Phone: [facility] 04-18-2023 13:24-0400 Respiratory rate 16 /min Dr. Tonio Fajardo Work Phone: [facility] 04-18-2023 13:24-0400 Systolic blood pressure 141 mm[Hg] Dr. Tonio Fajardo Work Phone: [facility] 04-17-2023 11:08-0400 Body height 167.[address] Tonio Fajardo Work Phone: [facility] 04-17-2023 11:08-0400 Body mass index (BMI) [Ratio] 30.2 kg/m2 Dr. Tonio Fajardo Work Phone: [facility] 04-17-2023 11:08-0400 Body temperature 98.6 [degF] Dr. Tonio Fajardo Work Phone: [facility] 04-17-2023 11:08-0400 Body weight 84.[address] Tonio Fajardo Work Phone: [facility] 04-17-2023 11:08-0400 Diastolic blood pressure 87 mm[Hg] Dr. Tonio Fajardo Work Phone: [facility] 04-17-2023 11:08-0400 Heart rate 87 /min Dr. Tonio Fajardo Work Phone: [facility] 04-17-2023 11:08-0400 Respiratory rate 18 /min Dr. Tonio Fajardo Work Phone: [facility] 04-17-2023 11:08-0400 SaO2% (BldA) [Mass fraction] 95 % Dr. Tonio Fajardo Work Phone: [facility] 04-17-2023 11:08-0400 Systolic blood pressure 130 mm[Hg] Dr. Tonio Fajardo Work Phone: [facility] 04-02-2023 11:24-0400 Body temperature 98.6 [degF] Dr. Tonio Fajardo Work Phone: [facility] 04-02-2023 11:24-0400 Diastolic blood pressure 55 mm[Hg] Dr. Tonio Fajardo Work Phone: [facility] 04-02-2023 11:24-0400 Heart rate 101 /min Dr. Tonio Fajardo Work Phone: [facility] 04-02-2023 11:24-0400 Respiratory rate 20 /min Dr. Tonio Fajardo Work Phone: [facility] 04-02-2023 11:24-0400 Systolic blood pressure 114 mm[Hg] Dr. Tonio Fajardo Work Phone: [facility] 03-19-2023 10:28-0400 Body temperature 98.2 [degF] Dr. Tonio Fajardo Work Phone: [facility] 03-19-2023 10:28-0400 Diastolic blood pressure 59 mm[Hg] Dr. Tonio Fajardo Work Phone: [facility] 03-19-2023 10:28-0400 Heart rate 106 /min Dr. Tonio Fajardo Work Phone: [facility] 03-19-2023 10:28-0400 Respiratory rate 20 /min Dr. Tonio Fajardo Work Phone: [facility] 03-19-2023 10:28-0400 Systolic blood pressure 120 mm[Hg] Dr. Tonio Fajardo Work Phone: [facility] 02-05-2023 13:10-0400 Body temperature 97.6 [degF] Dr. Tonio Fajardo Work Phone: [facility] 02-05-2023 13:10-0400 Diastolic blood pressure 76 mm[Hg] Dr. Tonio Fajardo Work Phone: [facility] 02-05-2023 13:10-0400 Heart rate 109 /min Dr. Tonio Fajarod Work Phone: [facility] 02-05-2023 13:10-0400 Respiratory rate 18 /min Dr. Tonio Fajardo Work Phone: [facility] 02-05-2023 13:10-0400 Systolic blood pressure 160 mm[Hg] Dr. Tonio Fajardo Work Phone: [facility] 01-08-2023 13:37-0400 Body temperature 96.7 [degF] Dr. Tonio Fajardo Work Phone: [facility] 01-08-2023 13:37-0400 Diastolic blood pressure 46 mm[Hg] Dr. Tonio Fajardo Work Phone: [facility] 01-08-2023 13:37-0400 Heart rate 111 /min Dr. Tonio Fajardo Work Phone: [facility] 01-08-2023 13:37-0400 Systolic blood pressure 121 mm[Hg] Dr. Tonio Fajardo Work Phone: [facility] 12-31-2022 00:58-0400 Body temperature 98.7 [degF] Dr. Tonio Fajardo Work Phone: [facility] 12-31-2022 00:58-0400 Diastolic blood pressure 59 mm[Hg] Dr. Tonio Fajardo Work Phone: [facility] 12-31-2022 00:58-0400 Heart rate 111 /min Dr. Tonio Fajardo Work Phone: [facility] 12-31-2022 00:58-0400 Respiratory rate 26 /min Dr. Tonio Fajardo Work Phone: [facility] 12-31-2022 00:58-0400 SaO2% (BldA) [Mass fraction] 93 % Dr. Tonio Fajardo Work Phone: [facility] 12-31-2022 00:58-0400 Systolic blood pressure 131 mm[Hg] Dr. Tonio Fajardo Work Phone: [facility] 12-30-2022 22:36-0400 Body height 167.[address] Tonio Fajardo Work Phone: [facility] 12-30-2022 22:36-0400 Body mass index (BMI) [Ratio] 30.5 kg/m2 Dr. Tonio Fajardo Work Phone: [facility] 12-30-2022 22:36-0400 Body weight 85.[address] Tonio Fajardo Work Phone: [facility] 12-25-2022 14:53-0400 Body temperature 97.7 [degF] Dr. Tonio Fajardo Work Phone: [facility] 12-25-2022 14:53-0400 Diastolic blood pressure 51 mm[Hg] Dr. Tonio Fajardo Work Phone: [facility] 12-25-2022 14:53-0400 Heart rate 110 /min Dr. Tonio Fajardo Work Phone: [facility] 12-25-2022 14:53-0400 Respiratory rate 18 /min Dr. Tonio Fajardo Work Phone: [facility] 12-25-2022 14:53-0400 Systolic blood pressure 101 mm[Hg] Dr. Tonio Fajardo Work Phone: [facility] 12-12-2022 10:49-0400 Body height 167.[address] Tonio Fajardo Work Phone: [facility] 12-12-2022 10:49-0400 Body mass index (BMI) [Ratio] 29.7 kg/m2 Dr. Tonio Fajardo Work Phone: [facility] 12-12-2022 10:49-0400 Body temperature 97.4 [degF] Dr. Tonio Fajardo Work Phone: [facility] 12-12-2022 10:49-0400 Body weight 83.[address] Tonio Fajardo Work Phone: [facility] 12-12-2022 10:49-0400 Diastolic blood pressure 71 mm[Hg] Dr. Tonio Fajardo Work Phone: [facility] 12-12-2022 10:49-0400 Heart rate 114 /min Dr. Tonio Fajardo Work Phone: [facility] 12-12-2022 10:49-0400 Respiratory rate 18 /min Dr. Tonio Fajardo Work Phone: [facility] 12-12-2022 10:49-0400 SaO2% (BldA) [Mass fraction] 96 % Dr. Tonio Fajardo Work Phone: [facility] 12-12-2022 10:49-0400 Systolic blood pressure 135 mm[Hg] Dr. Tonio Fajardo Work Phone: [facility] 12-11-2022 13:12-0400 Body temperature 96.2 [degF] Dr. Tonio Fajardo Work Phone: [facility] 12-11-2022 13:12-0400 Diastolic blood pressure 87 mm[Hg] Dr. Tonio Fajardo Work Phone: [facility] 12-11-2022 13:12-0400 Heart rate 107 /min Dr. Tonio Fajardo Work Phone: [facility] 12-11-2022 13:12-0400 Respiratory rate 20 /min Dr. Tonio Fajardo Work Phone: [facility] 12-11-2022 13:12-0400 Systolic blood pressure 110 mm[Hg] Dr. Tonio Fajardo Work Phone: [facility] 11-16-2022 13:13-0400 Diastolic blood pressure 49 mm[Hg] Dr. Tonio Fajardo Work Phone: [facility] 11-16-2022 13:13-0400 Heart rate 82 /min Dr. Tonio Fajardo Work Phone: [facility] 11-16-2022 13:13-0400 Respiratory rate 16 /min Dr. Tonio Fajardo Work Phone: [facility] 11-16-2022 13:13-0400 Systolic blood pressure 125 mm[Hg] Dr. Tonio Fajardo Work Phone: [facility] 11-08-2022 09:52-0400 Body temperature 97.3 [degF] Dr. Tonio Fajardo Work Phone: [facility] 10-16-2022 14:07-0500 Body height 167.[address] Tonio Fajardo Work Phone: [facility] 10-16-2022 14:05-0500 Body mass index (BMI) [Ratio] 29.8 kg/m2 Dr. Tonio Fajardo Work Phone: [facility] 10-16-2022 14:05-0500 Body temperature 97.6 [degF] Dr. Tonio Fajardo Work Phone: [facility] 10-16-2022 14:05-0500 Body weight 83.[address] Tonio Fajardo Work Phone: [facility] 10-16-2022 14:05-0500 Diastolic blood pressure 89 mm[Hg] Dr. Tonio Fajardo Work Phone: [facility] 10-16-2022 14:05-0500 Heart rate 78 /min Dr. Tonio Fajardo Work Phone: [facility] 10-16-2022 14:05-0500 Respiratory rate 18 /min Dr. Tonio Fajardo Work Phone: [facility] 10-16-2022 14:05-0500 SaO2% (BldA) [Mass fraction] 94 % Dr. Tonio Fajardo Work Phone: [facility] 10-16-2022 14:05-0500 Systolic blood pressure 145 mm[Hg] Dr. Tonio Fajardo Work Phone: [facility] 10-16-2022 13:24-0500 Body mass index (BMI) [Ratio] 29.8 kg/m2 Dr. Tonio Fajardo Work Phone: [facility] 10-16-2022 13:24-0500 Body temperature 98.6 [degF] Dr. Tonio Fajardo Work Phone: [facility] 10-16-2022 13:24-0500 Body weight 83.[address] Tonio Fajardo Work Phone: [facility] 10-16-2022 13:24-0500 Diastolic blood pressure 74 mm[Hg] Dr. Tonio Fajardo Work Phone: [facility] 10-16-2022 13:24-0500 Heart rate 75 /min Dr. Tonio Fajardo Work Phone: [facility] 10-16-2022 13:24-0500 Respiratory rate 18 /min Dr. Tonio Fajardo Work Phone: [facility] 10-16-2022 13:24-0500 SaO2% (BldA) [Mass fraction] 94 % Dr. Tonio Fajardo Work Phone: [facility] 10-16-2022 13:24-0500 Systolic blood pressure 146 mm[Hg] Dr. Tonio Fajardo Work Phone: [facility] 10-09-2022 12:59-0500 Body temperature 97.5 [degF] Dr. Tonio Fajardo Work Phone: [facility] 10-09-2022 12:59-0500 Diastolic blood pressure 63 mm[Hg] Dr. Tonio Fajardo Work Phone: [facility] 10-09-2022 12:59-0500 Heart rate 89 /min Dr. Tonio Fajardo Work Phone: [facility] 10-09-2022 12:59-0500 Respiratory rate 22 /min Dr. Tonio Fajardo Work Phone: [facility] 10-09-2022 12:59-0500 Systolic blood pressure 148 mm[Hg] Dr. Tonio Fajardo Work Phone: [facility] 09-18-2022 09:49-0500 Body temperature 97.3 [degF] Dr. Tonio Fajardo Work Phone: [facility] 09-18-2022 09:49-0500 Diastolic blood pressure 44 mm[Hg] Dr. Tonio Fajardo Work Phone: [facility] 09-18-2022 09:49-0500 Heart rate 66 /min Dr. Tonio Fajardo Work Phone: [facility] 09-18-2022 09:49-0500 Respiratory rate 18 /min Dr. Tonio Fajardo Work Phone: [facility] 09-18-2022 09:49-0500 Systolic blood pressure 138 mm[Hg] Dr. Tonio Fajardo Work Phone: [facility] 08-15-2022 13:56-0500 Body temperature 97.1 [degF] Dr. Tonio Fajardo Work Phone: [facility] 08-15-2022 13:56-0500 Diastolic blood pressure 43 mm[Hg] Dr. Tonio Fajardo Work Phone: [facility] 08-15-2022 13:56-0500 Heart rate 73 /min Dr. Tonio Fajardo Work Phone: [facility] 08-15-2022 13:56-0500 Respiratory rate 16 /min Dr. Tonio Fajardo Work Phone: [facility] 08-15-2022 13:56-0500 Systolic blood pressure 139 mm[Hg] Dr. Tonio Fajardo Work Phone: [facility] 08-08-2022 14:00-0500 Body height 167.[address] Tonio Fajardo Work Phone: [facility] 08-08-2022 13:57-0500 Body mass index (BMI) [Ratio] 29.5 kg/m2 Dr. Tonio Fajardo Work Phone: [facility] 08-08-2022 13:57-0500 Body temperature 97.5 [degF] Dr. Tonio Fajardo Work Phone: [facility] 08-08-2022 13:57-0500 Body weight 83.[address] Tonio Fajardo Work Phone: [facility] 08-08-2022 13:57-0500 Diastolic blood pressure 54 mm[Hg] Dr. Tonio Fajardo Work Phone: [facility] 08-08-2022 13:57-0500 Heart rate 67 /min Dr. Tonio Fajardo Work Phone: [facility] 08-08-2022 13:57-0500 Respiratory rate 16 /min Dr. Tonio Fajardo Work Phone: [facility] 08-08-2022 13:57-0500 SaO2% (BldA) [Mass fraction] 94 % Dr. Tonio Fajardo Work Phone: [facility] 08-08-2022 13:57-0500 Systolic blood pressure 109 mm[Hg] Dr. Tonio Fajardo Work Phone: [facility] 07-19-2022 14:30-0500 Body height 167.[address] Tonio Fajardo Work Phone: [facility] Work Phone: 07-19-2022 14:30-0500 Body mass index (BMI) [Ratio] 29 kg/m2 Dr. Tonio Fajardo Work Phone: [facility] 07-19-2022 14:30-0500 Body weight 81.[address] Tonio Fajardo Work Phone: [facility] 07-19-2022 14:30-0500 Diastolic blood pressure 62 mm[Hg] Dr. Tonio Fajardo Work Phone: [facility] 07-19-2022 14:30-0500 Heart rate 66 /min Dr. Tonio Fajardo Work Phone: [facility] 07-19-2022 14:30-0500 Respiratory rate 24 /min Dr. Tonio Fajardo Work Phone: [facility] 07-19-2022 14:30-0500 SaO2% (BldA) [Mass fraction] 97 % Dr. Tonio Fajardo Work Phone: [facility] 07-19-2022 14:30-0500 Systolic blood pressure 117 mm[Hg] Dr. Tonio Fajardo Work Phone: [facility] 07-18-2022 13:29-0500 Body temperature 97.1 [degF] Dr. Tonio Fajardo Work Phone: [facility] 07-18-2022 13:29-0500 Diastolic blood pressure 57 mm[Hg] Dr. Tonio Fajardo Work Phone: [facility] 07-18-2022 13:29-0500 Heart rate 83 /min Dr. Tonio Fajardo Work Phone: [facility] 07-18-2022 13:29-0500 Respiratory rate 16 /min Dr. Tonio Fajardo Work Phone: [facility] 07-18-2022 13:29-0500 Systolic blood pressure 117 mm[Hg] Dr. Tonio Fajardo Work Phone: [facility] 07-17-2022 11:23-0500 Body temperature 98.3 [degF] Dr. Tonio Fajardo Work Phone: [facility] 07-17-2022 11:23-0500 Diastolic blood pressure 58 mm[Hg] Dr. Tonio Fajardo Work Phone: [facility] 07-17-2022 11:23-0500 Heart rate 63 /min Dr. Tonio Fajardo Work Phone: [facility] 07-17-2022 11:23-0500 Respiratory rate 16 /min Dr. Tonio Fajardo Work Phone: [facility] 07-17-2022 11:23-0500 SaO2% (BldA) [Mass fraction] 97 % Dr. Tonio Fajardo Work Phone: [facility] 07-17-2022 11:23-0500 Systolic blood pressure 107 mm[Hg] Dr. Tonio Fajardo Work Phone: [facility] 07-05-2022 14:00-0500 Body mass index (BMI) [Ratio] 29 kg/m2 Dr. Tonio Fajardo Work Phone: [facility] 07-05-2022 14:00-0500 Body temperature 96.9 [degF] Dr. Tonio Fajardo Work Phone: [facility] 07-05-2022 14:00-0500 Body weight 81.[address] Tonio Fajardo Work Phone: [facility] 07-05-2022 14:00-0500 Diastolic blood pressure 63 mm[Hg] Dr. Tonio Fajardo Work Phone: [facility] 07-05-2022 14:00-0500 Heart rate 66 /min Dr. Tonio Fajardo Work Phone: [facility] 07-05-2022 14:00-0500 Respiratory rate 16 /min Dr. Tonio Fajardo Work Phone: [facility] 07-05-2022 14:00-0500 SaO2% (BldA) [Mass fraction] 97 % Dr. Tonio Fajardo Work Phone: [facility] 07-05-2022 14:00-0500 Systolic blood pressure 156 mm[Hg] Dr. Tonio Fajardo Work Phone: [facility] 06-28-2022 14:11-0500 Body mass index (BMI) [Ratio] 29.6 kg/m2 Dr. Tonio Fajardo Work Phone: [facility] 06-28-2022 14:11-0500 Body temperature 97.1 [degF] Dr. Tonio Fajardo Work Phone: [facility] 06-28-2022 14:11-0500 Body weight 83.[address] Tonio Fajardo Work Phone: [facility] 06-28-2022 14:11-0500 Diastolic blood pressure 58 mm[Hg] Dr. Tonio Fjaardo Work Phone: [facility] 06-28-2022 14:11-0500 Heart rate 77 /min Dr. Tonio Fajardo Work Phone: [facility] 06-28-2022 14:11-0500 Respiratory rate 16 /min Dr. Tonio Fajardo Work Phone: [facility] 06-28-2022 14:11-0500 SaO2% (BldA) [Mass fraction] 89 % Dr. Tonio Fajardo Work Phone: [facility] 06-28-2022 14:11-0500 Systolic blood pressure 124 mm[Hg] Dr. Tonio Fajardo Work Phone: [facility] 06-21-2022 13:57-0400 Body mass index (BMI) [Ratio] 29.8 kg/m2 Dr. Tonio Fajardo Work Phone: [facility] 06-21-2022 13:57-0400 Body temperature 97 [degF] Dr. Tonio Fajardo Work Phone: [facility] 06-21-2022 13:57-0400 Body weight 83.[address] Tonio Fajardo Work Phone: [facility] 06-21-2022 13:57-0400 Diastolic blood pressure 88 mm[Hg] Dr. Tonio Fajardo Work Phone: [facility] 06-21-2022 13:57-0400 Heart rate 70 /min Dr. Tonio Fajardo Work Phone: [facility] 06-21-2022 13:57-0400 Respiratory rate 18 /min Dr. Tonio Fajardo Work Phone: [facility] 06-21-2022 13:57-0400 SaO2% (BldA) [Mass fraction] 94 % Dr. Tonio Fajardo Work Phone: [facility] 06-21-2022 13:57-0400 Systolic blood pressure 139 mm[Hg] Dr. Tonio Fajardo Work Phone: [facility] 06-14-2022 13:55-0400 Body height 167.[address] Tonio Fajardo Work Phone: [facility] Work Phone: 06-14-2022 13:53-0400 Body mass index (BMI) [Ratio] 29.5 kg/m2 Dr. Tonio Fajardo Work Phone: [facility] 06-14-2022 13:53-0400 Body temperature 97 [degF] Dr. Tonio Fajardo Work Phone: [facility] 06-14-2022 13:53-0400 Body weight 83.[address] Tonio Fajardo Work Phone: [facility] 06-14-2022 13:53-0400 Diastolic blood pressure 61 mm[Hg] Dr. Tonio Fajardo Work Phone: [facility] 06-14-2022 13:53-0400 Heart rate 66 /min Dr. Tonio Fajardo Work Phone: [facility] 06-14-2022 13:53-0400 Respiratory rate 16 /min Dr. Tonio Fajardo Work Phone: [facility] 06-14-2022 13:53-0400 SaO2% (BldA) [Mass fraction] 94 % Dr. Tonio Fajardo Work Phone: [facility] 06-14-2022 13:53-0400 Systolic blood pressure 137 mm[Hg] Dr. Tonio Fajardo Work Phone: [facility] 06-12-2022 10:32-0400 Body temperature 97.3 [degF] Dr. Tonio Fajardo Work Phone: [facility] 06-12-2022 10:32-0400 Diastolic blood pressure 63 mm[Hg] Dr. Tonio Fajardo Work Phone: [facility] 06-12-2022 10:32-0400 Heart rate 59 /min Dr. oTnio Fajardo Work Phone: [facility] 06-12-2022 10:32-0400 Respiratory rate 18 /min Dr. Tonio Fajardo Work Phone: [facility] 06-12-2022 10:32-0400 Systolic blood pressure 149 mm[Hg] Dr. Tonio Fajardo Work Phone: [facility] 05-30-2022 14:08-0400 Body height 167.[address] Tonio Fajardo Work Phone: [facility] Work Phone: 05-30-2022 14:05-0400 Body mass index (BMI) [Ratio] 29.7 kg/m2 Dr. Tonio Fajardo Work Phone: [facility] 05-30-2022 14:05-0400 Body temperature 97 [degF] Dr. Tonio Fajardo Work Phone: [facility] 05-30-2022 14:05-0400 Body weight 83.[address] Tonio Fajardo Work Phone: [facility] 05-30-2022 14:05-0400 Diastolic blood pressure 64 mm[Hg] Dr. Tonio Fajardo Work Phone: [facility] 05-30-2022 14:05-0400 Heart rate 65 /min Dr. Tonio Fajardo Work Phone: [facility] 05-30-2022 14:05-0400 Respiratory rate 18 /min Dr. Tonio Fajardo Work Phone: [facility] 05-30-2022 14:05-0400 SaO2% (BldA) [Mass fraction] 95 % Dr. Tonio Fajardo Work Phone: [facility] 05-30-2022 14:05-0400 Systolic blood pressure 145 mm[Hg] Dr. Tonio Fajardo Work Phone: [facility] 05-29-2022 14:48-0400 Body temperature 97.6 [degF] Dr. Tonio Fajardo Work Phone: [facility] Work Phone: 05-29-2022 14:48-0400 Diastolic blood pressure 51 mm[Hg] Dr. Tonio Fajardo Work Phone: [facility] Work Phone: 05-29-2022 14:48-0400 Heart rate 75 /min Dr. Tonio Fajardo Work Phone: [facility] Work Phone: 05-29-2022 14:48-0400 Systolic blood pressure 158 mm[Hg] Dr. Tonio Fajardo Work Phone: [facility] Work Phone: 05-24-2022 14:31-0400 Body height 167.[address] Tonio Fajardo Work Phone: [facility] Work Phone: 05-24-2022 14:22-0400 Body mass index (BMI) [Ratio] 29.7 kg/m2 Dr. Tonio Fajardo Work Phone: [facility] 05-24-2022 14:22-0400 Body temperature 98.2 [degF] Dr. Tonio Fajardo Work Phone: [facility] 05-24-2022 14:22-0400 Body weight 83.[address] Tonio Fajardo Work Phone: [facility] 05-24-2022 14:22-0400 Diastolic blood pressure 74 mm[Hg] Dr. Tonio Fajardo Work Phone: [facility] 05-24-2022 14:22-0400 Heart rate 74 /min Dr. Tonio Fajardo Work Phone: [facility] 05-24-2022 14:22-0400 Respiratory rate 15 /min Dr. Tonio Fajardo Work Phone: [facility] 05-24-2022 14:22-0400 SaO2% (BldA) [Mass fraction] 96 % Dr. Tonio Fajardo Work Phone: [facility] 05-24-2022 14:22-0400 Systolic blood pressure 135 mm[Hg] Dr. Tonio Fajardo Work Phone: [facility] 05-24-2022 13:26-0400 Body temperature 96.7 [degF] Dr. Tonio Fajardo Work Phone: [facility] Work Phone: 05-24-2022 13:26-0400 Diastolic blood pressure 57 mm[Hg] Dr. Tonio Fajardo Work Phone: [facility] Work Phone: 05-24-2022 13:26-0400 Heart rate 81 /min Dr. Tonio Fajardo Work Phone: [facility] Work Phone: 05-24-2022 13:26-0400 Respiratory rate 18 /min Dr. Tonio Fajardo Work Phone: [facility] Work Phone: 05-24-2022 13:26-0400 Systolic blood pressure 141 mm[Hg] Dr. Tonio Fajardo Work Phone: [facility] Work Phone: 05-17-2022 15:07-0400 Body temperature 97.5 [degF] Dr. Tonio Fajardo Work Phone: [facility] Work Phone: 05-17-2022 15:07-0400 Diastolic blood pressure 63 mm[Hg] Dr. Tonio Fajardo Work Phone: [facility] Work Phone: 05-17-2022 15:07-0400 Heart rate 71 /min Dr. Tonio Fajardo Work Phone: [facility] Work Phone: 05-17-2022 15:07-0400 Respiratory rate 20 /min Dr. Tonio Fajardo Work Phone: [facility] Work Phone: 05-17-2022 15:07-0400 Systolic blood pressure 142 mm[Hg] Dr. Tonio Fajardo Work Phone: [facility] Work Phone: 05-11-2022 16:01-0400 Body height 167.[address] Tonio Fajardo Work Phone: [facility] Work Phone: 05-11-2022 15:54-0400 Body mass index (BMI) [Ratio] 29.4 kg/m2 Dr. Tonio Fajardo Work Phone: [facility] Work Phone: 05-11-2022 15:54-0400 Body temperature 98.4 [degF] Dr. Tonio Fajardo Work Phone: [facility] Work Phone: 05-11-2022 15:54-0400 Body weight 82.[address] Tonio Fajardo Work Phone: [facility] Work Phone: 05-11-2022 15:54-0400 Diastolic blood pressure 67 mm[Hg] Dr. Tonio Fajardo Work Phone: [facility] Work Phone: 05-11-2022 15:54-0400 Heart rate 63 /min Dr. Tonio Fajardo Work Phone: [facility] Work Phone: 05-11-2022 15:54-0400 Respiratory rate 16 /min Dr. Tonio Fajardo Work Phone: [facility] Work Phone: 05-11-2022 15:54-0400 SaO2% (BldA) [Mass fraction] 96 % Dr. Tonio Fajardo Work Phone: [facility] Work Phone: 05-11-2022 15:54-0400 Systolic blood pressure 100 mm[Hg] Dr. Tonio Fajardo Work Phone: [facility] Work Phone: 05-11-2022 08:32-0400 Body mass index (BMI) [Ratio] 29.4 kg/m2 Dr. Tonio Fajardo Work Phone: [facility] Work Phone: 05-11-2022 08:32-0400 Body temperature 97.2 [degF] Dr. Tonio Fajardo Work Phone: [facility] Work Phone: 09-22-2022 08:32-0400 Body weight 82.[address] Tonio Fajardo Work Phone: [facility] Work Phone: 05-11-2022 08:32-0400 Diastolic blood pressure 62 mm[Hg] Dr. Tonio Fajardo Work Phone: [facility] Work Phone: 05-11-2022 08:32-0400 Heart rate 73 /min Dr. Tonio Fajardo Work Phone: [facility] Work Phone: 05-11-2022 08:32-0400 Respiratory rate 20 /min Dr. Tonio Fajardo Work Phone: [facility] Work Phone: 05-11-2022 08:32-0400 SaO2% (BldA) [Mass fraction] 96 % Dr. Tonio Fajardo Work Phone: [facility] Work Phone: 05-11-2022 08:32-0400 Systolic blood pressure 145 mm[Hg] Dr. Tonio Fajardo Work Phone: [facility] Work Phone: 04-28-2022 11:40-0400 Body temperature 97.4 [degF] Dr. Tonio Fajardo Work Phone: [facility] Work Phone: 04-28-2022 11:40-0400 Diastolic blood pressure 46 mm[Hg] Dr. Tonio Fajardo Work Phone: [facility] Work Phone: 04-28-2022 11:40-0400 Heart rate 66 /min Dr. Tonio Fajardo Work Phone: [facility] Work Phone: 04-28-2022 11:40-0400 Respiratory rate 20 /min Dr. Tonio Fajardo Work Phone: [facility] Work Phone: 04-28-2022 11:40-0400 SaO2% (BldA) [Mass fraction] 96 % Dr. Tonio Fajardo Work Phone: [facility] Work Phone: 04-28-2022 11:40-0400 Systolic blood pressure 138 mm[Hg] Dr. Tonio Fajardo Work Phone: [facility] Work Phone: 04-28-2022 09:44-0400 Inhaled oxygen flow rate 2 L/min Dr. Tonio Fajardo Work Phone: [facility] Work Phone: 04-28-2022 08:15-0400 Body height 167.[address] Tonio Fajardo Work Phone: [facility] Work Phone: 04-28-2022 08:15-0400 Body mass index (BMI) [Ratio] 28 kg/m2 Dr. Tonio Fajardo Work Phone: [facility] Work Phone: 04-28-2022 08:15-0400 Body weight 78.[address] Tonio Fajardo Work Phone: [facility] Work Phone: 04-26-2022 13:47-0400 Body temperature 97 [degF] Dr. Tonio Fajardo Work Phone: [facility] Work Phone: 04-26-2022 13:47-0400 Diastolic blood pressure 33 mm[Hg] Dr. Tonio Fajardo Work Phone: [facility] Work Phone: 04-26-2022 13:47-0400 Heart rate 80 /min Dr. Tonio Fajardo Work Phone: [facility] Work Phone: 04-26-2022 13:47-0400 Respiratory rate 18 /min Dr. Tonio Fajardo Work Phone: [facility] Work Phone: 04-26-2022 13:47-0400 Systolic blood pressure 118 mm[Hg] Dr. Tonio Fajardo Work Phone: [facility] Work Phone: 04-14-2022 11:11-0400 Body height 167.[address] Tonio Fajardo Work Phone: [facility] Work Phone: 04-14-2022 11:11-0400 Body mass index (BMI) [Ratio] 30.7 kg/m2 Dr. Tonio Fajardo Work Phone: [facility] Work Phone: 04-14-2022 11:11-0400 Body temperature 95.8 [degF] Dr. Tonio Fajardo Work Phone: [facility] Work Phone: 04-14-2022 11:11-0400 Body weight 86.[address] Tonio Fajardo Work Phone: [facility] Work Phone: 04-14-2022 11:11-0400 Diastolic blood pressure 68 mm[Hg] Dr. Tonio Fajardo Work Phone: [facility] Work Phone: 04-14-2022 11:11-0400 Heart rate 34 /min Dr. Tonio Fajardo Work Phone: [facility] Work Phone: 04-14-2022 11:11-0400 Respiratory rate 16 /min Dr. Tonio Fajardo Work Phone: [facility] Work Phone: 04-14-2022 11:11-0400 SaO2% (BldA) [Mass fraction] 91 % Dr. Tonio Fajardo Work Phone: [facility] Work Phone: 04-14-2022 11:11-0400 Systolic blood pressure 163 mm[Hg] Dr. Tonio Fajardo Work Phone: [facility] Work Phone: 04-14-2022 10:36-0400 Body temperature 96.7 [degF] Dr. Tonio Fajardo Work Phone: [facility] Work Phone: 04-14-2022 10:36-0400 Diastolic blood pressure 71 mm[Hg] Dr. Tonio Fajardo Work Phone: [facility] Work Phone: 04-14-2022 10:36-0400 Heart rate 64 /min Dr. Tonio Fajardo Work Phone: [facility] Work Phone: 04-14-2022 10:36-0400 Respiratory rate 23 /min Dr. Tonio Fajardo Work Phone: [facility] Work Phone: 04-14-2022 10:36-0400 SaO2% (BldA) [Mass fraction] 94 % Dr. Tonio Fajardo Work Phone: [facility] Work Phone: 04-14-2022 10:36-0400 Systolic blood pressure 153 mm[Hg] Dr. Tonio Fajardo Work Phone: [facility] Work Phone: 04-14-2022 08:24-0400 Body mass index (BMI) [Ratio] 30.2 kg/m2 Dr. Tonio Fajardo Work Phone: [facility] Work Phone: 04-14-2022 08:24-0400 Body weight 85.[address] Tonio Fajardo Work Phone: [facility] Work Phone: 04-12-2022 13:50-0400 Body temperature 97.8 [degF] Dr. Tonio Fajardo Work Phone: [facility] Work Phone: 04-12-2022 13:50-0400 Diastolic blood pressure 74 mm[Hg] Dr. Tonio Fajardo Work Phone: [facility] Work Phone: 04-12-2022 13:50-0400 Heart rate 69 /min Dr. Tonio Fajardo Work Phone: [facility] Work Phone: 04-12-2022 13:50-0400 Respiratory rate 18 /min Dr. Tonio Fajardo Work Phone: [facility] Work Phone: 04-12-2022 13:50-0400 Systolic blood pressure 107 mm[Hg] Dr. Tonio Fajardo Work Phone: [facility] Work Phone: 04-05-2022 13:34-0400 Body temperature 101.61 [degF] Steven Praisler-Wood TELECOMMUNICATIONS OFFICER.ULTRASOUND TECHNOLOGIST Work Phone: [facility] 04-05-2022 13:34-0400 Body weight 87.09 kg Steven Praisler-Wood TELECOMMUNICATIONS OFFICER.ULTRASOUND TECHNOLOGIST Work Phone: [facility] 04-05-2022 13:34-0400 Diastolic blood pressure 76 mm[Hg] Steven Praisler-Wood TELECOMMUNICATIONS OFFICER.ULTRASOUND TECHNOLOGIST Work Phone: [facility] 04-05-2022 13:34-0400 Heart rate 76 /min Steven Praisler-Wood TELECOMMUNICATIONS OFFICER.ULTRASOUND TECHNOLOGIST Work Phone: [facility] 04-05-2022 13:34-0400 Respiratory rate 16 /min Steven Praisler-Wood TELECOMMUNICATIONS OFFICER.ULTRASOUND TECHNOLOGIST Work Phone: [facility] 04-05-2022 13:34-0400 SaO2% (BldA) [Mass fraction] 94 % Steven Rodriguez APRN.ULTRASOUND TECHNOLOGIST Work Phone: [facility] 04-05-2022 13:34-0400 Systolic blood pressure 122 mm[Hg] Steven Rodriguez APRN.ULTRASOUND TECHNOLOGIST Work Phone: [facility] 03-01-2022 13:16-0400 Body temperature 97.6 [degF] Dr. Tonio Fajardo Work Phone: [facility] Work Phone: 03-01-2022 13:16-0400 Diastolic blood pressure 73 mm[Hg] Dr. Tonio Fajardo Work Phone: [facility] Work Phone: 03-01-2022 13:16-0400 Heart rate 70 /min Dr. Tonio Fajardo Work Phone: [facility] Work Phone: 03-01-2022 13:16-0400 Respiratory rate 18 /min Dr. Tonio Fajardo Work Phone: [facility] Work Phone: 03-01-2022 13:16-0400 Systolic blood pressure 141 mm[Hg] Dr. Tonio Fajardo Work Phone: [facility] Work Phone: 02-08-2022 13:06-0400 Body temperature 98.1 [degF] Dr. Tonio Fajardo Work Phone: [facility] Work Phone: 02-08-2022 13:06-0400 Diastolic blood pressure 63 mm[Hg] Dr. Tonio Fajardo Work Phone: [facility] Work Phone: 02-08-2022 13:06-0400 Heart rate 83 /min Dr. Tonio Fajardo Work Phone: [facility] Work Phone: 02-08-2022 13:06-0400 Respiratory rate 20 /min Dr. Tonio Fajardo Work Phone: [facility] Work Phone: 02-08-2022 13:06-0400 Systolic blood pressure 131 mm[Hg] Dr. Tonio Fajardo Work Phone: [facility] Work Phone: 01-17-2022 10:56-0400 Body height 167.[address] Tonio Fajardo Work Phone: [facility] Work Phone: 01-17-2022 10:56-0400 Body mass index (BMI) [Ratio] 31.9 kg/m2 Dr. Tonio Fajardo Work Phone: [facility] Work Phone: 01-17-2022 10:56-0400 Body weight 89.[address] Tonio Fajardo Work Phone: [facility] Work Phone: 01-17-2022 10:56-0400 Diastolic blood pressure 44 mm[Hg] Dr. Tonio Fajardo Work Phone: [facility] Work Phone: 01-17-2022 10:56-0400 Heart rate 64 /min Dr. Tonio Fajardo Work Phone: [facility] Work Phone: 01-17-2022 10:56-0400 Respiratory rate 22 /min Dr. Tonio Fajardo Work Phone: [facility] Work Phone: 01-17-2022 10:56-0400 SaO2% (BldA) [Mass fraction] 95 % Dr. Tonio Fajardo Work Phone: [facility] Work Phone: 01-17-2022 10:56-0400 Systolic blood pressure 101 mm[Hg] Dr. Tonio Fajardo Work Phone: [facility] Work Phone: 01-17-2022 10:56-0400 Body height 167.[address] Tonio Fajardo Work Phone: [facility] Work Phone: 01-17-2022 10:56-0400 Body mass index (BMI) [Ratio] 31.9 kg/m2 Dr. Tonio Fajardo Work Phone: [facility] Work Phone: 01-17-2022 10:56-0400 Body weight 89.[address] Tonio Fajardo Work Phone: [facility] Work Phone: 01-17-2022 10:56-0400 Diastolic blood pressure 44 mm[Hg] Dr. Tonio Fajardo Work Phone: [facility] Work Phone: 01-17-2022 10:56-0400 Heart rate 64 /min Dr. Tonio Fajardo Work Phone: [facility] Work Phone: 01-17-2022 10:56-0400 Respiratory rate 22 /min Dr. Tonio Fajardo Work Phone: [facility] Work Phone: 01-17-2022 10:56-0400 SaO2% (BldA) [Mass fraction] 95 % Dr. Tonio Fajardo Work Phone: [facility] Work Phone: 01-17-2022 10:56-0400 Systolic blood pressure 101 mm[Hg] Dr. Tonio Fajardo Work Phone: [facility] Work Phone: 01-04-2022 12:59-0400 Body temperature 96.4 [degF] Dr. Tonio Fajardo Work Phone: [facility] Work Phone: 01-04-2022 12:59-0400 Diastolic blood pressure 64 mm[Hg] Dr. Tonio Fajardo Work Phone: [facility] Work Phone: 01-04-2022 12:59-0400 Heart rate 70 /min Dr. Tonio Fajardo Work Phone: [facility] Work Phone: 01-04-2022 12:59-0400 Respiratory rate 16 /min Dr. Tonio Fajardo Work Phone: [facility] Work Phone: 01-04-2022 12:59-0400 Systolic blood pressure 135 mm[Hg] Dr. Tonio Fajardo Work Phone: [facility] Work Phone: 12-21-2021 13:10-0400 Body temperature 97 [degF] [facility] Work Phone: 12-21-2021 13:10-0400 Diastolic blood pressure 62 mm[Hg] [facility] Work Phone: 12-21-2021 13:10-0400 Heart rate 88 /min [facility] Work Phone: 12-21-2021 13:10-0400 Systolic blood pressure 173 mm[Hg] [facility] Work Phone: 12-18-2021 00:38-0400 Respiratory rate 16 /min [facility] Work Phone: 11-29-2021 13:03-0400 Body temperature 97.4 [degF] [facility] Work Phone: 11-29-2021 13:03-0400 Diastolic blood pressure 43 mm[Hg] [facility] Work Phone: 11-29-2021 13:03-0400 Heart rate 69 /min [facility] Work Phone: 11-29-2021 13:03-0400 Respiratory rate 16 /min [facility] Work Phone: 11-29-2021 13:03-0400 Systolic blood pressure 134 mm[Hg] [facility] Work Phone: 11-09-2021 13:07-0400 Body temperature 97 [degF] [facility] Work Phone: 11-09-2021 13:07-0400 Diastolic blood pressure 41 mm[Hg] [facility] Work Phone: 11-09-2021 13:07-0400 Heart rate 73 /min [facility] Work Phone: 11-09-2021 13:07-0400 Respiratory rate 18 /min [facility] Work Phone: 11-09-2021 13:07-0400 Systolic blood pressure 126 mm[Hg] [facility] Work Phone: Encounters Encounter Date Encounter Type Care Provider Facility Start: 04-17-2025 Evaluation and management of inpatient [facility] Facility:[facility] Start: 04-16-2025 ambulatory [facility] Facility: [facility] Start: 04-13-2025 End: 04-17-2025 Evaluation and management of inpatient DR DAVID STERLING MD Facility:A Start: 04-12-2025 End: 04-13-2025 Dr. Tonio Fajardo DO Work Phone: -Emergency Department Work Phone: Start: 04-12-2025 End: 04-13-2025 Emergency department patient visit Dr. Tonio Fajardo DO Work Phone: -Emergency Department Start: 04-10-2025 End: 04-13-2025 Dr. Valdez Olivo MD -Transitional [facility] Start: 04-10-2025 End: 04-13-2025 Evaluation and management of inpatient Dr. Tonio Fajardo DO Work Phone: -Transitional Care Unit Start: 04-10-2025 End: 04-10-2025 Carol Sousa -[facility] Work Phone: Start: 04-10-2025 Dr. Nicola Roman MD [facility] Work Phone: Start: 04-10-2025 End: 04-10-[address] Tonio Fajardo DO Work Phone: -[facility] Start: 04-10-2025 End: 04-10-2025 Dr. Issa Looney MD -[facility] Work Phone: Start: 04-09-2025 Dr. Santos Hsu MD [facility] Start: 04-09-2025 Dr. Nicola Roman MD [facility] Work Phone: Start: 04-08-2025 Dr. Issa Looney MD [facility] Start: 04-08-2025 Dr. Nicola Roman MD [facility] Work Phone: Start: 04-07-2025 Dr. Nicola Roman MD [facility] Work Phone: Start: 04-06-2025 Dr. Deric Lantigua MD [facility] Work Phone: Start: 04-05-2025 ambulatory [...] 04-02-2025 End: 04-02-2025 ambulatory Carmelina E Aida Facility:[facility] Start: 03-27-2025 End: 03-27-[address] Tonio Fajardo DO Work Phone: -Pulmonary Services/Neurology Start: 03-27-2025 End: 03-27-2025 Patient encounter procedure Leslie Arriaga PA -Pulmonary Services/Neurology Work Phone: Start: 03-27-2025 End: 03-27-2025 Leslie Arriaga PA -Pulmonary Services/Neurology Work Phone: Start: 03-27-2025 End: 03-27-2025 ambulatory Leslie DAMIAN Facility:[facility] Start: 03-18-2025 End: 03-18-[address] Tonio Fajardo DO Work Phone: -[facility]atory [facility] Start: 03-18-2025 End: 03-18-[address] Tonio Fajardo DO -[facility] Start: 03-18-2025 End: 03-18-2025 Dr. Tonio Fajardo DO -[facility] Start: 03-17-2025 End: 03-17-2025 Patient encounter procedure Leslie Arriaga PA -[facility] Work Phone: Start: 03-17-2025 End: 03-17-2025 Leslie Arriaga PA -[facility] Work Phone: Start: 03-17-2025 End: 03-18-[address] Tonio Fajardo DO Work Phone: -[facility] Start: 03-15-2025 End: 03-15-2025 Dr. Alex Matias MD -Emergency Departmen t Work Phone: Start: 03-15-2025 End: 03-15-2025 Emergency department patient visit Dr. Tonio Fajardo DO Work Phone: -Emergency Department Work Phone: Start: 03-09-2025 Non-patient / Non-visit Dr. Deric Lantigua MD [facility] Work Phone: Start: 03-09-2025 Dr. Deric Lantigua MD [facility] Work Phone: Start: 03-09-2025 Non-patient / Non-visit Dr. Willian Glaser MD [facility] Start: 03-09-2025 Dr. Willian Glaser MD [facility] Start: 03-08-2025 Non-patient / Non-visit Dr. Marjorie castellano MD [facility] Start: 03-08-2025 Dr. Marjorie Green MD [facility] Start: 03-07-2025 Non-patient / Non-visit Dr. Deric Lantigua MD [facility] Work Phone: Start: 03-07-2025 Dr. Deric Lantigua MD [facility] Work Phone: Start: 03-06-2025 Non-patient / Non-visit Dr. Deric Lantigua MD [facility] Work Phone: Start: 03-06-2025 Dr. Deric Lantigua MD [facility] Work Phone: Start: 03-06-2025 Non-patient / Non-visit Dr. Marjorie castellano MD [facility] Start: 03-06-2025 Dr. Marjorie Green MD [facility] Start: 03-05-2025 ambulatory Marjorie Green Facility:[facility] Start: 03-05-2025 Non-patient / Non-visit Dr. Marjorie castellano MD [facility] Start: 03-05-2025 Dr. Marjorie Green MD [facility] Start: 03-05-2025 Non-patient / Non-visit Dr. Deric Lantigua MD [facility] Work Phone: Start: 03-05-2025 Dr. Deric Lantigua MD [facility] Inpatient Physicians Work Phone: Start: 03-04-2025 ambulatory Nicola Prakash ty:[facility] Start: 03-04-2025 End: 03-09-2025 Evaluation and management of inpatient Dr. Nicola Lindsey DO -Progressive Care Unit Work Phone: Start: 03-04-2025 End: 03-09-2025 Dr. Deric Lantigua MD -Progressive Care U nit Work Phone: Start: 11-06-[address] Russ Zamora MD -[facility] Start: 11-06-2024 End: 11-06-[address] Russ Zamora MD -[facility] Work Phone: Start: 11-06-2024 End: 11-06-2024 ambulatory Russ Zamora Facility:[facility] Start: 10-30-2024 End: 10-30-[address] Tonio Fajardo DO Work Phone: [facility] Work Phone: Start: 10-30-2024 End: 10-30-[address] Russ Zamora MD -Cat Scan, [facility] Work Phone: Start: 10-30-2024 End: 10-30-2024 ambulatory Russ Zamora Facility:[facility] Start: 10-23-2024 End: 10-23-2024 Patient encounter procedure Lorie Mart [employer]-C -[facility] Work Phone: Start: 10-23-2024 End: 10-23-2024 ambulatory Tonio Fajardo Facility:[facility] Start: 10-20-2024 End: 10-20-[address] Tonio Fajardo DO Work Phone: [facility] Work Phone: Start: 10-20-2024 End: 10-20-[address] Tonio Fajardo DO -[facility] Start: 10-20-2024 End: 10-20-2024 ambulatory Tonio Fajardo Facility:[facility] Start: 10-17-2024 ambulatory Tonio Fajardo Facility: [facility] Start: 10-17-2024 Non-patient / Non-visit Dr. Tyrell zuniga DO -[facility] Start: 10-16-2024 End: 10-16-[address] Tonio Fajardo DO Work Phone: [facility] Work Phone: Start: 10-16-2024 End: 10-16-2024 Patient encounter procedure Lorie Mart [employer]-C -Pulmonary Services/Neurology Work Phone: Start: 10-16-2024 End: 10-16-2024 ambulatory Tonio Fajardo Facility:[facility] Start: 09-25-2024 End: 09-25-2024 Patient encounter procedure Leslie DAMIAN -[facility] Work Phone: Start: 09-25-2024 End: 09-25-2024 [facility] Start: 09-25-2024 End: 09-25-2024 ambulatory Leslie DAMIAN Facility:[facility] Start: 07-03-2024 End: 07-03-[address] Joaquim Suárez [facility] -Laboratory, Specimen Work Phone: Start: 07-03-2024 End: 07-03-2024 ambulatory Joaquim Suárez Facility:[facility] Start: 06-17-2024 End: 06-17-2024 ambulatory Joaquim Suárez Facility:[facility] Start: 05-05-2024 End: 05-05-2024 ambulatory [facility] Facility:[facility] Start: 04-28-2024 End: 04-28-2024 ambulatory [facility] Facility:[facility] Start: 12-24-2023 End: 12-24-[address] Tonio Fajardo Work Phone: [facility] Work Phone: Start: 12-24-2023 End: 12-24-[address] Tonio Fajardo Work Phone: [facility]-Laboratory, Specimen Work Phone: Start: 11-12-2023 End: 11-12-[address] Tonio Fajardo Work Phone: [facility] Work Phone: Start: 11-06-[address] Tonio Fajardo Work Phone: [facility] Start: 10-31-2023 End: 10-31-[address] Tonio Fajardo Work Phone: [facility] Work Phone: Start: 10-18-2023 End: 10-18-[address] Tonio Fajardo Work Phone: [facility] Work Phone: Start: 10-12-2023 End: 10-12-[address] Tonio Fajardo Work Phone: [facility] Work Phone: Start: 10-12-2023 End: 10-12-[address] Tonio Fajardo Work Phone: [facility] Work Phone: Start: 08-29-2023 End: 08-29-[address] Tonio Fajardo Work Phone: [facility] Work Phone: Start: 08-22-2023 Non-patient / Non-visit Dr. Min Fajardo Work Phone: [facility] Start: 08-22-2023 End: 08-22-[address] Tonio Fajardo Work Phone: [facility] Work Phone: Start: 07-26-2023 End: 07-26-[address] Tonio Fajardo Work Phone: [facility] Work Phone: Start: 07-26-2023 End: 07-26-[address] Tonio Fajardo Work Phone: [facility] Work Phone: Start: 07-25-2023 End: 07-25-[address] Tonio Fajardo Work Phone: [facility]-Pulmonary Medicine [facility] Work Phone: Start: 06-22-2023 End: 06-22-[address] Tonio Fajardo Work Phone: [facility] Work Phone: Start: 06-22-2023 End: 06-22-[address] Tonio Fajardo Work Phone: [facility]-Laboratory, Specimen Work Phone: Start: 06-08-2023 End: 06-08-2023 Admission to same day surgery center Dr. Tonio Fajardo Work Phone: [facility]-Surgical Day Care Start: 06-08-2023 End: 06-08-[address] Tonio Fajardo Work Phone: [facility] Work Phone: Start: 05-02-2023 End: 05-19-[address] Tonio Fajardo Work Phone: [facility]-Wound Healing Center Work Phone: Start: 04-20-2023 Non-patient / Non-visit Dr. Min Fajardo Work Phone: [facility] Start: 04-18-2023 End: 04-19-[address] Tonio Fajardo Work Phone: [facility] Work Phone: Start: 04-18-2023 End: 04-19-[address] Tonio Fajardo Work Phone: [facility] Work Phone: Start: 04-17-[address] Tonio Fajardo Work Phone: [facility] Start: 04-17-2023 End: 04-17-[address] Tonio Fajardo Work Phone: [facility] Work Phone: Start: 04-10-2023 End: 04-10-[address] Tonio Fajardo Work Phone: [facility] Work Phone: Start: 04-10-2023 End: 04-10-[address] Tonio Fajardo Work Phone: [facility] Work Phone: Start: 04-02-2023 Non-patient / Non-visit Dr. Min Fajardo Work Phone: [facility] Start: 04-02-[address] Tonio Fajardo Work Phone: [facility] Work Phone: Start: 03-19-2023 Non-patient / Non-visit Dr. Min Fajardo Work Phone: [facility] Start: 03-19-2023 End: 03-19-[address] Tonio Fajardo Work Phone: [facility] Work Phone: Start: 03-19-2023 End: 03-19-[address] Tonio Fajardo Work Phone: [facility] Work Phone: Start: 03-05-2023 Non-patient / Non-visit Dr. Min Fajardo Work Phone: [facility] Start: 02-23-2023 End: 02-23-[address] Tonio Fajardo Work Phone: [facility] Work Phone: Start: 02-19-2023 Non-patient / Non-visit Dr. Min Fajardo Work Phone: [facility] Start: 02-05-2023 Non-patient / Non-visit Dr. Min Fajardo Work Phone: [facility] Start: 02-05-2023 End: 02-16-[address] Tonio Fajardo Work Phone: [facility] Work Phone: Start: 02-05-2023 End: 02-16-[address] Tonio Fajardo Work Phone: [facility] Work Phone: Start: 01-22-2023 Non-patient / Non-visit Dr. Min Fajardo Work Phone: [facility] Start: 01-08-2023 Non-patient / Non-visit Dr. Min Fajardo Work Phone: [facility] Start: 01-08-2023 End: 01-17-[address] Toino Fajardo Work Phone: [facility] Work Phone: Start: 01-08-2023 End: 01-17-[address] Tonio Fajardo Work Phone: [facility] Start: 12-30-2022 End: 12-31-2022 Emergency department patient visit Dr. Tonio Fajardo Work Phone: [facility]-Emergency Department Start: 12-25-2022 Non-patient / Non-visit Dr. Min Fajardo Work Phone: [facility] Start: 12-25-[address] Tonio Fajardo Work Phone: [facility] Start: 12-18-2022 Non-patient / Non-visit Dr. Min Fajardo Work Phone: [facility] Start: 12-12-2022 End: 12-12-[address] Tonio Fajardo Work Phone: [facility]-Pulmonary Medicine [facility] Start: 12-11-2022 Non-patient / Non-visit Dr. Min Fajardo Work Phone: [facility] Start: 12-11-2022 End: 12-17-[address] Tonio Fajardo Work Phone: [facility] Work Phone: Start: 12-11-2022 End: 12-17-[address] Tonio Fajardo Work Phone: [facility] Start: 12-06-2022 Non-patient / Non-visit Dr. Min Fajardo Work Phone: [facility] Start: 11-27-2022 Non-patient / Non-visit Dr. Min Fajardo Work Phone: [facility] Start: 11-20-2022 Non-patient / Non-visit Dr. Min Fajardo Work Phone: [facility] Start: 11-08-2022 Non-patient / Non-visit Dr. Min Fajardo Work Phone: [facility] Start: 11-08-2022 End: 11-17-[address] Tonio Fajardo Work Phone: [facility] Start: 10-30-2022 Non-patient / Non-visit Dr. Min Fajardo Work Phone: [facility] Start: 10-23-2022 Non-patient / Non-visit Dr. Min Fajardo Work Phone: [facility] Start: 10-18-2022 Non-patient / Non-visit Dr. Min Fajardo Work Phone: [facility] Start: 10-16-[address] Tonio Fajardo Work Phone: [facility] Start: 10-16-2022 End: 10-16-[address] Tonio Fajardo Work Phone: [facility] Start: 10-09-2022 Non-patient / Non-visit Dr. Min Fajardo Work Phone: [facility] Start: 10-09-2022 End: 10-09-[address] Tonio Fajardo Work Phone: [facility] Start: 10-09-2022 End: 10-17-[address] Tonio Fajardo Work Phone: [facility] Work Phone: Start: 10-09-2022 End: 10-17-[address] Tonio Fajardo Work Phone: [facility] Start: 10-09-[address] Tonio Fajardo Work Phone: [facility] Start: 10-02-2022 Non-patient / Non-visit Dr. Min Fajardo Work Phone: [facility] Start: 10-02-2022 End: 10-02-[address] Tonio Fajardo Work Phone: [facility] Start: 09-25-2022 Non-patient / Non-visit Dr. Min Fajardo Work Phone: [facility] Start: 09-18-2022 Non-patient / Non-visit Dr. Min Fajardo Work Phone: [facility] Start: 09-18-2022 End: 09-19-[address] Tonio Fajardo Work Phone: [facility] Work Phone: Start: 09-18-2022 End: 09-19-[address] Tonio Fajardo Work Phone: [facility] Start: 08-29-2022 Non-patient / Non-visit Dr. Min Fajardo Work Phone: [facility] Start: 08-15-2022 Non-patient / Non-visit Dr. Min Fajardo Work Phone: [facility] Start: 08-15-2022 End: 08-19-[address] Tonio Fajardo Work Phone: [facility] Work Phone: Start: 08-15-2022 End: 08-19-[address] Tonio Fajardo Work Phone: [facility] Start: 08-08-2022 End: 08-08-[address] Tonio Fajardo Work Phone: [facility] Start: 08-01-2022 Non-patient / Non-visit Dr. Min Fajardo Work Phone: [facility] Start: 07-28-2022 Telephone encounter Steven Parra APRN.ULTRASOUND TECHNOLOGIST Work Phone: [facility] Comment on above: Patient Update Start: 07-19-2022 End: 07-19-[address] Tonio Fajardo Work Phone: [facility] Start: 07-18-2022 Non-patient / Non-visit Dr. Min Fajardo Work Phone: [facility] Start: 07-18-2022 End: 07-19-[address] Tonio Fajardo Work Phone: [facility] Work Phone: Start: 07-18-2022 End: 07-19-[address] Tonio Fajardo Work Phone: [facility] Start: 07-17-2022 End: 07-17-[address] Tonio Fajardo Work Phone: [facility] Start: 07-09-[address] Tonio Fajardo Work Phone: [facility] Start: 07-09-2022 Non-patient / Non-visit Dr. Min Fajardo Work Phone: [facility] Start: 07-05-2022 End: 07-05-[address] Tonio Fajardo Work Phone: [facility] Start: 06-28-2022 End: 06-28-[address] Tonio Fajardo Work Phone: [facility] Start: 06-26-2022 Non-patient / Non-visit Dr. Min Fajardo Work Phone: [facility] Start: 06-21-2022 End: 06-21-[address] Tonio Fajardo Work Phone: [facility] Start: 06-19-[address] Tonio Fajardo Work Phone: [facility] Start: 06-14-2022 End: 06-14-[address] Tonio Fajardo Work Phone: [facility] Start: 06-12-2022 Non-patient / Non-visit Dr. Min Fajardo Work Phone: [facility] Start: 06-12-2022 End: 06-19-[address] Tonio Fajardo Work Phone: [facility] Work Phone: Start: 06-12-2022 End: 06-19-[address] Tonio Fajardo Work Phone: [facility] Start: 06-06-2022 Non-patient / Non-visit Dr. Min Fajardo Work Phone: [facility] Start: 06-02-2022 Non-patient / Non-visit Dr. Min Fajardo Work Phone: [facility] Start: 06-02-2022 End: 06-02-[address] Tonio Fajardo Work Phone: [facility] Work Phone: Start: 06-02-2022 End: 06-02-[address] Tonio Fajardo Work Phone: [facility]-Pulmonary Services/Neurology Start: 06-01-2022 Non-patient / Non-visit Dr. Min Fajardo Work Phone: [facility] Start: 06-01-[address] Tonio Fajardo Work Phone: [facility] Start: 05-30-[address] Tonio Fajardo Work Phone: [facility] Start: 05-30-2022 End: 05-30-[address] Tonio Fajardo Work Phone: [facility] Start: 05-29-2022 Non-patient / Non-visit Dr. Min Fajardo Work Phone: [facility] Start: 05-29-[address] Tonio Fajardo Work Phone: [facility] Start: 05-24-2022 End: 05-24-[address] Tonio Fajardo Work Phone: [facility] Start: 05-24-2022 Non-patient / Non-visit Dr. Min Fajardo Work Phone: [facility] Start: 05-24-[address] Tonio Fajardo Work Phone: [facility] Start: 05-22-2022 End: 05-22-[address] Tonio Fajardo Work Phone: [facility] Work Phone: Start: 05-22-2022 End: 05-22-[address] Tonio Fajardo Work Phone: [facility] Start: 05-17-2022 Non-patient / Non-visit Dr. Min Fajardo Work Phone: [facility] Start: 05-17-2022 End: 05-19-[address] Tonio Fajardo Work Phone: [facility] Work Phone: Start: 05-17-2022 End: 05-19-[address] Tonio Fajardo Work Phone: [facility] Start: 05-17-[address] Tonio Fajardo Work Phone: [facility] Start: 05-11-2022 End: 05-11-[address] Tonio Fajardo Work Phone: [facility] Start: 05-11-2022 End: 05-11-[address] Tonio Fajardo Work Phone: [facility] Start: 04-28-2022 Non-patient / Non-visit Dr. Min Fajardo Work Phone: [facility] Start: 04-28-2022 End: 04-28-[address] Tonio Fajardo Work Phone: [facility] Work Phone: Start: 04-28-2022 End: 04-28-[address] Tonio Fajardo Work Phone: [facility] Start: 04-26-[address] Tonio Fajardo Work Phone: [facility] Start: 04-14-2022 End: 04-14-[address] Tonio Fajardo Work Phone: [facility] Work Phone: Start: 04-14-2022 End: 04-14-[address] Tonio Fajardo Work Phone: [facility]-Laboratory, OP Pavilion Start: 04-14-2022 End: 04-14-2022 Emergency department patient visit Dr. Tonio Fajardo Work Phone: [facility]-Emergency Department Start: 04-12-2022 End: 04-12-[address] Tonio Fajardo Work Phone: [facility] Work Phone: Start: 04-12-2022 End: 04-12-[address] Tonio Fajardo Work Phone: [facility] Start: 04-12-2022 End: 04-19-[address] Tonio Fajardo Work Phone: [facility] Work Phone: Start: 04-12-2022 End: 04-19-[address] Tonio Fajardo Work Phone: [facility] Start: 04-12-[address] Tonio Fajardo Work Phone: [facility] Start: 04-06-2022 Telephone encounter Carlos Rivera MD Work Phone: [facility] Comment on above: Results (COVID+) Start: 04-05-2022 End: 04-05-2022 ambulatory TONIO FAJARDO Facility:[facility] Start: 04-05-2022 Telephone encounter Steven Parra APRN.ULTRASOUND TECHNOLOGIST Work Phone: [facility] Comment on above: Results Start: 04-05-2022 End: 04-05-2022 Subsequent hospital visit by physician [facility] Work Phone: Radiology Comment on above: Acute cough [R05.1] Start: 04-05-2022 End: 04-05-2022 Patient encounter procedure Steven Rodriguez APRN.ULTRASOUND TECHNOLOGIST Work Phone: [facility] Comment on above: Burning with urinati on (Primary Dx); Acute cough; Suspected COVID-19 virus infection Start: 03-01-2022 End: 03-19-[address] Tonio Fajardo Work Phone: [facility] Start: 02-08-2022 End: 02-16-[address] Tonio Fajardo Work Phone: [facility] Start: 01-17-2022 End: 01-17-[address] Tonio Fajardo Work Phone: [facility] Start: 01-04-2022 End: 01-17-[address] Tonio Fajardo Work Phone: [facility] Start: 12-21-2021 Registered Recurring [facility] Start: 12-19-2021 End: 12-19-2021 Patient encounter procedure [facility] Start: 11-29-2021 End: 12-17-2021 Nutrition therapy [facility] Start: 11-09-2021 End: 11-17-2021 Nutrition therapy [facility] Procedures Date Procedure Procedure Detail Performing Clinician Start: 04-12-2025 Blood count smear mc rscp w/mnl difrntl wbc count Dr. Tonio Fajardo DO Work Phone: Start: 04-12-[address] Tonio Fajardo DO Work Phone: Start: 04-12-2025 Mean corpuscular hem oglobin concentration determination Dr. Tonio Fajardo DO Work Phone: Start: 04-12-2025 Nucleated red blood cell count procedure Dr. Tonio Fajardo DO Work Phone: Start: 04-12-2025 Platelet mean volume determination Dr. Tonio Fajardo DO Work Phone: Start: 04-12-2025 CT of chest without contrast Dr. Tonio Fajardo DO Work Phone: Start: 04-12-2025 X-ray of chest, PA a nd lateral views Dr. Tonio Fajardo DO Work Phone: Start: 04-11-[address] Tonio Fajardo DO Work Phone: Start: 04-11-2025 Blood count smear mc rscp w/mnl difrntl wbc count Dr. Tonio Fajardo DO Work Phone: Start: 04-11-[address] Tonio Fajardo DO Work Phone: Start: 04-11-2025 Mean corpuscular hem oglobin concentration determination Dr. Tonio Fajardo DO Work Phone: Start: 04-11-2025 Nucleated red blood cell count procedure Dr. Tonio Fajardo DO Work Phone: Start: 04-11-2025 Platelet mean volume determination Dr. Tonio Fajardo DO Work Phone: Start: 04-10-2025 Blood count leukocyt e wbc automated Dr. Tonio Fajardo DO Work Phone: Start: 04-10-2025 Glucose measurement, body fluid Dr. Tonio Fajardo DO Work Phone: Start: 04-10-[address] Tonio Fajardo DO Work Phone: Start: 04-10-2025 Polymorphonuclear le ukocyte count Dr. Tonio Fajardo DO Work Phone: Start: 04-10-[address] Tonio Fajardo DO Work Phone: Start: 04-10-2025 Gram stain microscopy D amy Fajardo DO Work Phone: Start: 04-10-2025 Microbial culture, body fluid Dr. Tonio Fajardo DO Work Phone: Start: 04-10-2025 Calculation of inter national normalized ratio Dr. Tonio Fajardo DO Work Phone: Start: 04-10-2025 Ultrasonic guidance for thoracentesis Dr. Tonio Fajardo DO Work Phone: Start: 04-10-2025 CT of chest without contrast Dr. Tonio Fajardo DO Work Phone: Start: 04-10-2025 Blood count smear rscp w/mnl difrntl wbc count Dr. Tonio [...] Phone: Start: 04-09-2025 Plain chest X-ray Dr. Silvana Fajardo DO Work Phone: Start: 04-09-2025 Serum inorganic phos phate measurement Dr. Tonio Fajardo DO Work Phone: Start: 04-06-[address] Tonio Fajardo DO Work Phone: Start: 04-06-2025 Complete ultrasound of kidneys and bladder Dr. Tonio Fajardo DO Work Phone: Start: 04-06-2025 Plain chest X-ray Dr. Silvana Fajardo DO Work Phone: Start: 04-05-2025 Urine [...] Platelet mean volume determination Dr. Tonio Fajardo [facility] Work Phone: Start: 03-09-2025 Blood count smear mc rscp w/mnl difrntl wbc count Dr. Tonio Fajardo DO Work Phone: Start: 03-09-[address] Tonio Fajardo [facility] Work Phone: Start: 03-09-2025 Mean corpuscular hem oglobin concentration determination Dr. Tonio Fajardo DO Work Phone: Start: 03-09-2025 Nucleated red blood cell count procedure Dr. Tonio Fajardo DO Work Phone: Start: 03-09-2025 Platelet mean volume determination Dr. Tonio Fajardo DO Work Phone: Start: 03-06-[address] Tonio Fajardo [facility] Work Phone: Start: 03-06-2025 Serum inorganic phos phate measurement Dr. Tonio Fajardo DO Work Phone: Start: 03-05-[address] Tonio Fajardo [facility] Work Phone: Start: 03-05-2025 Total cholesterol:HD L ratio measurement Dr. Tonio Fajardo DO Work Phone: Start: 03-05-2025 Plain chest X-ray Dr. Silvana Fajardo [facility] Work Phone: Start: 03-04-2025 Urine microscopy: red cells Dr. Tonio Fajardo DO Work Phone: Start: 03-04-2025 Urnls dip stick/tabl et reagent auto microscopy Dr. Tonio Fajardo [facility] Work Phone: Start: 03-04-2025 Estimated creatinine clearance [...] Phone: Comment on above: Sent directly to [facility] per ordering physician. Start: 12-24-2023 [...] Phone: Start: 02-23-2023 Plain chest X-ray Dr. Silvana Fajardo Work Phone: Start: 01-08-[address] Tonio Fajardo Work Phone: Start: 01-08-2023 Investigation of tra nsfusion reaction Dr. Tonio Fajarod Work Phone: Start: 01-08-2023 Microbial culture, routine Dr. Tonio Fajardo Work Phone: Start: 12-30-2022 Plain chest X-ray Dr. Silvana Fajardo Work Phone: Start: 12-30-2022 Bacteria identified in Blood by Culture Dr. Tonio Fajardo Work Phone: Start: 12-30-2022 SARS-CoV-2 & FLU Ant igen (Rapid) Dr. Tonio Fajardo Work Phone: Start: 12-30-[address] Tonio Fajardo Work Phone: Start: 10-09-2022 CT of thorax with contrast Dr. Tonio Fajardo Work Phone: Start: 10-02-2022 Plain chest X-ray Dr. Silvana Fajardo Work Phone: Start: 05-22-2022 MRI of brain with contrast Dr. Tonio Fajardo Work Phone: Start: 05-17-2022 Positron emission to mography with computed tomography Dr. Tonio Fajardo Work Phone: Start: 04-28-2022 Plain chest X-ray Dr. Silvana Fajardo Work Phone: Start: 04-28-2022 Biopsy/Inj or Needle Placement Dr. Tonio Fajardo Work Phone: Start: 04-28-2022 Plain chest X-ray Dr. Silvana Fajardo Work Phone: Start: 04-12-2022 CT of thorax with contrast Dr. Tonio Fajardo Work Phone: Start: 04-05-2022 Radiologic exam chest 2 views Steven Rodriguez TELECOMMUNICATIONS OFFICER.ULTRASOUND TECHNOLOGIST Work Phone: Start: 04-05-2022 Urnls dip stick/tabl et rgnt auto w/o microscopy Onelia Cuevas TELECOMMUNICATIONS OFFICER.ULTRASOUND TECHNOLOGIST Work Phone: Start: 11-02-2021 X-ray of both [...] Treatment Date Care Activity Detail Author Start: 04-13-2025 End: 04-13-2025 [facility] Start: 04-13-2025 Patient discharge [facility] Start: 04-12-[address] [facility] Start: 04-11-2025 Referral to occupati onal therapist [facility] Start: 04-11-2025 Developing a treatme nt plan [facility] Start: 04-11-[address] [facility] Start: 04-11-20[address] [facility] Start: 04-11-2025 Consultation for treatment [facility] Start: 04-11-2025 Contact precautions [facility] Start: 04-10-2025 Following clinical p athway protocol [facility] Start: 04-10-2025 Admission procedure [facility] Start: 04-10-2025 Introduction of urin dakota catheter [facility] Start: 04-10-2025 Measuring intake and output [facility] Start: 04-10-2025 End: 04-11-2025 Patient referral to dietitian [facility] Start: 04-10-2025 Referral to occupati onal therapist [facility] Start: 04-10-2025 Referral to service [facility] Start: 04-10-2025 Vital signs measurements [facility] Start: 04-10-2025 Oxygen therapy [facility] Start: 04-10-2025 Patient discharge [facility] Start: 04-10-2025 End: 04-10-2025 Microbial culture, body fluid [facility] Start: 04-10-2025 Anaerobic microbial culture [facility] Start: 04-10-2025 End: 04-10-2025 [facility] Start: 04-09-2025 Referral to service [facility] Start: 04-09-2025 Care planning and pr oblem solving actions [facility] Start: 04-09-2025 Assessment of risk o f venous thromboembolism [facility] Start: 04-09-2025 Catheterization of vein [facility] Start: 04-09-2025 Notification of physician [facility] Start: 04-09-2025 Taking patient vital signs [facility] Start: 04-09-20[address] [facility] Start: 04-09-2025 End: 04-09-2025 [facility] Start: 04-09-2025 Care planning and pr oblem solving actions [facility] Start: 04-09-[address] [facility] Start: 04-08-2025 Catheterization of vein [facility] Start: 04-08-2025 Notification of physician [facility] Start: 04-08-[address] [facility] Start: 04-08-2025 Referral to sales and service specialist [facility] Start: 04-08-2025 End: 04-08-2025 Referral to service [facility] Start: 04-07-2025 Referral to occupati onal therapist [facility] Start: 04-07-2025 Referral to service [facility] Start: 04-07-2025 Provision of activit y privileges [facility] Start: 04-07-20[address] [facility] Start: 04-06-[address] [facility] Start: 04-06-2025 Continuous pulse oximetry [facility] Start: 04-06-2025 Consultation for treatment [facility] Start: 04-06-2025 XR Chest Single view [facility] Start: 04-06-[address] [facility] Start: 04-06-2025 Inhalation therapy procedure [facility] Start: 04-05-2025 Following clinical p athway protocol [facility] Start: 04-05-2025 Assessment of risk o f venous thromboembolism [facility] Start: 04-05-2025 Care regimes management [facility] Start: 04-05-2025 Catheterization of vein [facility] Start: 04-05-2025 Insertion of cathete r into peripheral vein [facility] Start: 04-05-2025 Measuring intake and output [facility] Start: 04-05-2025 Notification of physician [facility] Start: 04-05-2025 Oxygen therapy [facility] Start: 04-05-2025 Providing care accor ding to standard [facility] Start: 04-05-2025 Provision of activit y privileges [facility] Start: 04-05-2025 Referral to occupati onal therapist [facility] Start: 04-05-2025 Referral to service [facility] Start: 04-05-2025 End: 04-05-2025 [facility] Start: 04-05-2025 Referral to sales recruitment specialist [facility] Start: 04-05-2025 Verification routine [facility] Start: 04-05-2025 Urinalysis complete panel - Urine [facility] Start: 04-05-2025 Admission procedure [facility] Start: 04-05-2025 Hospital admission, emergency, from emergency room, medical nature [facility] Start: 04-05-2025 End: 04-05-2025 [facility] Start: 04-05-2025 Patient referral to dietitian [facility] Start: 03-27-2025 24 Hour ECG [facility] Start: 03-15-[address] [facility] Start: 03-15-2025 Control nasal hemorr min anterior simple [facility] Start: 03-09-2025 Referral to service [facility] Start: 03-09-2025 Patient discharge [facility] Start: 03-08-2025 Application of elast ic bandage [facility] Start: 03-07-2025 Introduction of urin dakota catheter [facility] Start: 03-06-2025 Inhalation therapy procedure [facility] Start: 03-05-[address] [facility] Start: 03-05-2025 Care planning and pr oblem solving actions [facility] Start: 03-05-2025 Chest 1 View (Portable) Chest 1 View (Portable) [facility] Start: 03-05-2025 XR Chest Single view [facility] Start: 03-05-2025 Care planning and pr oblem solving actions [facility] Start: 03-04-2025 Following clinical p athway protocol [facility] Start: 03-04-2025 Assessment of risk o f venous thromboembolism [facility] Start: 03-04-2025 Care regimes management [facility] Start: 03-04-2025 Catheterization of vein [facility] Start: 03-04-2025 Insertion of cathete r into peripheral vein [facility] Start: 03-04-2025 Measuring intake and output [facility] Start: 03-04-2025 Notification of physician [facility] Start: 03-04-2025 Oxygen therapy [facility] Start: 03-04-2025 Providing care accor ding to standard [facility] Start: 03-04-2025 Provision of activit y privileges [facility] Start: 03-04-2025 Referral to sales and service specialist [facility] Start: 03-04-2025 Referral to occupati onal therapist [facility] Start: 03-04-2025 Referral to service [facility] Start: 03-04-2025 End: 03-04-2025 [facility] Start: 03-04-2025 Hospital admission, emergency, from emergency room, medical nature [facility] Start: 03-04-2025 Verification routine [facility] Start: 03-04-2025 Admission procedure [facility] Start: 03-04-2025 Thyroid stimulating hormone measurement [facility] Start: 03-04-[address] [facility] Start: 03-04-2025 Patient referral to dietitian [facility] Start: 04-20-2024 Covid-19 Vaccine ( season) Covid-19 Vaccine ( season) [facility] Start: 04-20-2024 Influenza vaccination Influenza Vacc ine (#1) [facility] Start: 08-20-2023 Advance Directive Discussion Advance Directive Discussion [facility] Start: 06-22-[address] [facility] Start: 06-08-2023 Patient discharge [facility] Start: 06-08-2023 Anes open proc bones lower leg/ankle/foot nos ANESTH LOWER LEG BONE SURG [facility] Start: 06-08-2023 Osteot w/wo lngth shrt/corrj 1st metar INCISION OF METATARSAL [facility] Start: 06-08-2023 Prep site f/s/n/h/f/ g/m/d gt 1st 100 sq cm/1pct WOUND PREP F/N/HF/G [facility] Start: 06-08-2023 Sub grft f/s/n/h/f/g /m/d <100sq cm 1st 25 sq cm SKIN SUB GRAFT FACE/NK/HF/G [facility] Start: 06-08-2023 Fluoroscopic guidance O.R. Fluoro fo r C-Arm [facility] Start: 06-08-2023 Radiography of foot Foot 2 Views [facility] Start: 12-30-[address] [facility] Start: 12-30-2022 End: 12-30-2022 Blood culture [facility] Start: 12-30-2022 End: 12-30-2022 [facility] Start: 10-16-2022 CBC W Auto Different ial panel - Blood [facility] Start: 10-16-2022 Lactate dehydrogenas e measurement [facility] Start: 10-16-2022 End: 10-16-2022 [facility] Start: 07-18-[address] [facility] Work Phone: Start: 05-18-[address] [facility] Work Phone: Start: 05-11-2022 Patient referral [facility] Work Phone: Start: 04-28-2022 CORE NDL BX LNG/MED PERQ CORE NDL BX LNG/MED PERQ [facility] Work Phone: Start: 04-28-2022 Following clinical p athway protocol [facility] Work Phone: Start: 04-28-2022 Catheterization of vein [facility] Work Phone: Start: 04-28-2022 Oxygen therapy [facility] Work Phone: Start: 04-28-2022 Patient discharge [facility] Work Phone: Start: 04-28-2022 Vital signs measurements [facility] Work Phone: Start: 04-20-2022 Influenza vaccination INFLUENZA (#1) [facility] Start: 04-05-2022 End: 04-19-2022 Influenza virus A and B RNA and SARS-CoV-2 (COVID-19) N gene panel - Respiratory specimen by BRYAN with probe detection [facility] Work Phone: Comment on above: Expected: 04/05/2022 , Expires: 04/19/2022 Start: 08-20-2021 ADVANCE DIRECTIVE DISCUSSION ADVANCE DIRECTIVE DISCUSSION [facility] Start: 08-20-2021 DEPRESSION ASSESSMENT DEPRESSION ASS ESSMENT [facility] Start: 05-04-2021 COVID-19 VACCINE (3 - Booster for Moderna series) COVID-19 VACCINE (3 - Booster for Moderna series) [facility] Start: 01-27-2021 COVID-19 VACCINE (3 - Booster for Moderna series) COVID-19 VACCINE (3 - Booster for Moderna series) [facility] Start: 01-15-2020 RSV Vaccine (1 - 1-d ose 75+ series) RSV Vaccine (1 - 1-dose 75+ series) [facility] Start: 12-01-2018 DIABETES SCREEN DIABETES SCREEN [facility] Start: 12-01-2018 Diabetes Screening Diabetes Screenin g [facility] Start: 2010 Pneumococcal Vaccine : 65+ (1 of 1 - PCV) Pneumococcal Vaccine: 65+ (1 of 1 - PCV) [facility] Start: 2010 PNEUMOCOCCAL: 65+ (1 - PCV) PNEUMOCOCCAL: 65+ (1 - PCV) [facility] Start: 1995 SHINGRIX VACCINE (1 of 2) HEIN GRIX VACCINE (1 of 2) [facility] Start: 01-15-1964 Urine microalbumin profile [facility] Start: 1963 Anxiety Screening Anxiety Screening [facility] Start: 1963 Depression Screening Depression Scre ening [facility] Start: 1963 HEPATITIS C SCREENING HEPATITIS C SC REENING [facility] Start: 1957 Adult depression scr eening assessment [facility] 24 Hour ECG [facility] Alanine aminotransfe rase [Enzymatic activity/volume] in Serum or Plasma [facility] Albumin [Mass/volume ] in Serum or Plasma [facility] Alkaline phosphatase [Enzymatic activity/volume] in Serum or Plasma [facility] Anaerobic Culture Anaerobic Culture [facility] Work Phone: Anion gap measurement [facility] Aspartate aminotrans ferase [Enzymatic activity/volume] in Serum or Plasma [facility] Bacteria identified in Blood by Culture Blood Culture [facility] Bacteria identified in Body fluid by Culture [facility] Bacteria identified in Unspecified specimen by Anaerobe culture [facility] Work Phone: Bacteria identified in Unspecified specimen by Anaerobe culture [facility] Bacteria identified in Urine by Culture URINE CULTURE Microbiology Routine Burning with urination 04/05/2022 1:58 PM EDT [facility] Work Phone: Bacteria identified in Urine by Culture Urine Culture [facility] Bilirubin, total measurement [facility] BUN/Creatinine ratio [facility] Calcium [Mass/volume ] in Serum or Plasma [facility] Carbon dioxide, tota l [Moles/volume] in Serum or Plasma [facility] CBC W Auto Different ial panel - Blood [facility] Work Phone: CBC W Auto Different ial panel - Blood [facility] CBC W Auto Different ial panel - Blood [facility] Chloride [Moles/volu me] in Serum or Plasma [facility] Creatinine [Moles/vo lume] in Serum or Plasma [facility] CT Chest and Abdomen W contrast IV [facility] CT Chest W contrast IV [facility] Work Phone: CT Chest W contrast IV [facility] Cytology report of B horace fluid Cyto stain [facility] Glucose [Mass/volume ] in Serum or Plasma [facility] Hematocrit [Volume Fraction] of Blood [facility] Hemoglobin [Mass/vol ume] in Blood [facility] Hemoglobin A1c/Hemoglobin.total in Blood [facility] Lactate dehydrogenas e measurement [facility] Lactate dehydrogenas e measurement [facility] LDH [facility] Work Phone: Leukocytes [#/volume ] in Blood [facility] Magnesium measurement [facility] Mean corpuscular hemoglobin concentration determination [facility] Mean corpuscular hemoglobin determination [facility] Measurement of renal function [facility] Microbial culture, routine Wound Culture [facility] Work Phone: Microscopic observat ion [Identifier] in Unspecified specimen by Gram stain [facility] MR Brain WO and W co ntrast IV [facility] Work Phone: Natriuretic peptide. B prohormone N-Terminal [Mass/volume] in Serum or Plasma [facility] Natriuretic peptide. B prohormone N-Terminal [Mass/volume] in Serum or Plasma [facility] Neutrophil count [facility] Neutrophil percent differential count [facility] Patient Education [facility] Work Phone: Patient referral [facility] Work Phone: Platelets [#/volume] in Blood [facility] Positron emission tomography with computed tomography [facility] Work Phone: Potassium [Moles/vol ume] in Serum or Plasma [facility] Procedure [facility] PT Unspecified body region [facility] Radiation oncology A ND/OR radiotherapy [facility] Work Phone: Radiation oncology A ND/OR radiotherapy [facility] Red blood cell count [facility] Red cell distributio n width determination [facility] Sodium [Moles/volume ] in Serum or Plasma [facility] Total protein measurement [facility] Troponin T.cardiac [Mass/volume] in Serum or Plasma by High sensitivity method [facility] Troponin T.cardiac [Mass/volume] in Serum or Plasma by High sensitivity method [facility] Urea nitrogen [Mass/volume] in Serum or Plasma [facility] Immunizations Immunization Date Immunization Notes Care Provider Fa cility 06-23-2024 influenza virus vaccine, unspecified formulation DR DAVID TSERLING MD [facility] 02-26-2024 pneumococcal 20-shannon nt conjugate vaccine DR DAVID STERLING MD [facility] 06-01-2023 influenza virus vaccine, unspecified formulation DR DAVID STERLING MD [facility] 04-27-2022 influenza virus vaccine, unspecified formulation DR DAVID STERLING MD [facility] 12-02-2020 SARS-CoV-2 (COVID-19 ) mRNA-[address] DAVID STERLING MD [address] [place] [address] Comment on above: Result Comment: 2024: [id number] 11-04-2020 SARS-CoV-2 (COVID-19 ) mRNA-[address] DAVID STERLING MD [facility] Comment on above: Result Comment: 2024: [id number] 08-03-2014 influenza virus vaccine, unspecified formulation [facility] [place] Work Phone: [facility] 06-20-2013 Influenza virus vaccine [facility] 06-20-2013 Pneumococcal Vaccine [facility] Work Phone: 06-20-2013 pneumococcal vaccine , unspecified formulation Dr. Tonio Fajardo Work Phone: [facility] Payers Date Payer Category Payer Private Health Insurance [id number] 2025 Self-pay [id number] 2022 Self-pay [id number] 2009 Medicare [id number] 2009 Medicare [id number] 2009 [facility] ( and others) [id number] 2009 Unknown FOR LIFE [id number] 2009-Present [phone] [address] [place] [address] Indemnity [id number] 1945 Unknown [id number] 2.16.840.1.986849.3.579.2 .627 Unknown [id number] 2.16.840.1.520756.3.579.2 .462 Unknown [id number] 2.16.840.1.464538.3.579.2 .462 Unknown [id number] 2.16.840.1.955869.3.579.2 .462 Unknown [id number] 2.16.840.1.727080.3.579.2 .462 Unknown [id number] 2.16.840.1.913507.3.579.2 .462 Unknown [id number] 2.16.840.1.054780.3.579.2 .462 Unknown [id number] 2.16.840.1.180607.3.579.2 .462 Unknown [id number] 2.16.840.1.698529.3.579.2 .462 Unknown [id number] 2.16.840.1.058474.3.579.2 .462 Unknown [id number] 2.16.840.1.144595.3.579.2 .462 Unknown [id number] 2.16.840.1.436176.3.579.2 .462 Unknown [id number] 2.16.840.1.565187.3.579.2 .462 Unknown [id number] 2.16.840.1.328822.3.579.2 .462 Unknown [id number] 2.16.840.1.150900.3.579.2 .462 Unknown [id number] 2.16.840.1.227763.3.579.2 .462 Unknown [id number] 2.16.840.1.073921.3.579.2 .462 Unknown [id number] 2.16840.1.934610.3.579.2 .462 Unknown [id number] 2.840.1.842606.3.579.2 .462 Unknown [id number] 2.840.1.638061.3.579.2 .462 Unknown [id number] 2.840.1.278235.3.579.2 .462 Unknown [id number] 2.840.1.491019.3.579.2 .462 Unknown [id number] 2.16840.1.616314.3.579.2 .462 Unknown [id number] 2.16840.1.763150.3.579.2 .462 Unknown [id number] 2.16840.1.431569.3.579.2 .462 Unknown [id number] 2.16840.1.530838.3.579.2 .462 Unknown [id number] 2.16840.1.992666.3.579.2 .462 Unknown [id number] 2.16.840.1.025073.3.579.2 .462 Unknown [id number] 2.16.840.1.775879.3.579.2 .462 Unknown [id number] 2.16840.1.125679.3.579.2 .462 Unknown [id number] 2.16.840.1.187505.3.579.2 .462 Unknown [id number] .462 Unknown [id number] .462 Unknown [id number] 2.16.840.1.940657.3.579.2 .462 Unknown [id number] 2.16.840.1.446329.3.579.2 .462 Unknown [id number] 2.840.1.632101.3.579.2 .462 Unknown [id number] [id number] .462 Unknown [id number] 2.840.1.590637.3.579.2 .462 Unknown [id number] 2.840.1.888604.3.579.2 .462 Unknown [id number] 2.840.1.307320.3.579.2 .462 Unknown [id number] 2.840.1.543219.3.579.2 .462 Unknown [id number] 2.16.840.1.627244.3.579.2 .462 Unknown [id number] 2.840.1.882803.3.579.2 .462 Unknown [id number] 2.840.1.068272.3.579.2 .462 Unknown [id number] 2.840.1.372270.3.579.2 .462 Unknown [id number] 2.840.1.301694.3.579.2 .462 Unknown [id number] 2.840.1.782328.3.579.2 .462 Social History Date Type Detail Facility Start: 01-06-2021 End: 10-31-2023 Tobacco smoking status NVIS Unknown if ever smoked [facility] Start: 08-27-[address] [facility] Start: 03-18-2014 Spouse/ Signif icant Other [facility] Start: 06-20-2014 Non-smoker [facility] Start: 1945 Sex Assigned At Male W [facility] Start: 04-05-2022 End: 04-12-2025 Tobacco smoking status NHIS Ex-smoker [facility] Work Phone: History of tobacco use Current smoker [facility] Work Phone: History of tobacco use Cigarette Smoker [facility] Work Phone: Start: 04-05-2022 Tobacco use and exposure Former smokeless tobacco user [facility] Work Phone: Start: 1945 Sex Assigned At Not on file [facility] Start: 03-26-2022 End: 04-05-2022 Exposure to SARS-CoV-2 (event) Not sure [facility] Work Phone: Start: 04-05-2022 History of Social function [facility] Start: 04-05-2022 Tobacco use panel [facility] Start: 10-30-2024 End: 04-13-2025 Sex Male (finding) [facility] Tobacco smoking status [facility] Medical Equipment Procedure Code Equipment Code [...] FDA Start: 06-08-2023 Bunionectomy FDA Start: 06-08-2023 [id number]) [id number] [id number] FDA Start: 04-09-2025 [id number]) [id number] [id number] FDA Start: 04-09-2025 ([id number]) [id number] [id number] FDA Start: 04-09-2025 Goals Date Patient Goal Desired Activity /State Functional Status Date Assessment Result Facility 04-12-2025 Functional status Chair [facility] Work Phone: 04-10-2025 Functional status Stand and pivot [facility] Work Phone: 03-09-2025 Functional status Chair [facility] Work Phone: Mental Status Date Assessment Result Facility 04-12-2025 Cognitive function Voice/Name [facility] Work Phone: 04-10-2025 Cognitive function Voice/Name [facility] Work Phone: 04-05-2025 Cognitive function Awake;Alert;A ppropriate;Follow s Commands [facility] Work Phone: 03-09-2025 Cognitive function Voice/Name [facility] Work Phone: 06-08-2023 Cognitive function Voice/Name [facility] Work Phone: 12-30-2022 Cognitive function Level Of Cons ciousness Awake;Alert;Appropriate;Follow s Commands [facility] Work Phone: 04-28-2022 Cognitive function Voice/Name [facility] Work Phone: 04-14-2022 Cognitive function Level Of Cons ciousness Awake;Appropriate;Follows Commands;Drowsy [facility] Work Phone: Clinical Notes 04-05-2022 to 04-17-2025 Note Date & Type Note Facility 04-17-2025 Discharge summary Date of Service 04/17/2025 Discharge Diagnosis 1 - Pneumonia (J18.9 - ICD-10-CM) 2 - Hydropneumothorax (J94.8 - ICD-10-CM) 3 - Cardiac pacemaker in situ (Z95.0 - ICD-10-CM) Hospital Course 80 years old gentleman with past medical history of peripheral arterial disease, persistent atrial fibrillation status post pacemaker placement last week-, former smoker, BPH, CKD stage III, hyperlipidemia, diabetes mellitus type II, peripheral neuropathy, chronic anemia, hypertension, coronary artery disease status post CABG, diastolic heart failure, COPD, chronic hypoxic respiratory failure on 3 L nasal cannula presented as a transfer from [facility] for further evaluation of possible hydropneumothorax. Apparently, patient underwent pacemaker placement at [facility] last week , next day, patient was found to have pleural effusion and underwent thoracentesis and was admitted to rehab at [facility]. Patient found to have hypoxia and tachycardia with chest x-ray showing possible pneumothorax. Patient was afebrile, oxygen saturation 92% on 2 L nasal cannula oxygen. Lab work showed leukocytosis with WBC 13.7, hemoglobin 9.1. BMP with creatinine 1.4 which is around his baseline. Troponin 103. proBNP was 7022. CT chest without contrast showing right loculated hydropneumothorax of estimated 15% of right thoracic volume occupied by air, Patches of dense consolidating right pneumonia. Sizable peripheral blebs and honeycombing in the left mid and base. Patient was given antibiotics and after discussing with cardiothoracic surgery, he was transferred to [facility]. Patient admitted to hospital service, started on antibiotics with cardiothoracic surgery and pulmonology on consultation. No plan for surgical intervention. Pneumothorax seems to be resolved. Patient underwent thoracentesis yesterday with 1000 cc fluid removal. Currently on IV ceftriaxone and completed a 5 day course prior to dc. Heparin transitioned back to eliquis prior to dc. Allergies ibuprofen unknown Procedures thoracentesis Consults Consult to Physician - Ordered -- 04/13/25 5:54:00 EDT, MICHELLE WAGONER MD, Routine, Pneumothorax Consult to Physician - Ordered -- 04/16/25 7:30:00 EDT, ABBI CARMEN MD, Routine, Pleural effusion, exudative Imaging Results and Diagnostics XR Chest 1 View Result Date: April 17, 2025 Verified By: KRISTEN AMKI MD CLINICAL STATEMENT: IMPRESSION: Mild congestion/edema with small bilateral effusions. XR Chest 1 View Result Date: April 15, 2025 Verified By: SHAHBAZ FOLEY MD CLINICAL STATEMENT: IMPRESSION: No postprocedure pneumothorax. US Thoracentesis Right Result Date: April 15, 2025 Verified By: NUNO STR[facility] CLINICAL STATEMENT: IMPRESSION: Successful ultrasound guided thoracentesis This procedure was performed by Olamide DAMIAN-C XR Chest 1 View Result Date: April 15, 2025 Verified By: LEVI MARCIAL MD CLINICAL STATEMENT: IMPRESSION: Unchanged pulmonary edema and small bilateral pleural effusions. No pneumothorax is visible. XR Chest 1 View Result Date: April 14, 2025 Verified By: LEVI MARCIAL MD CLINICAL STATEMENT: IMPRESSION: 1. Moderate pulmonary edema.2. Small left pleural effusion and moderate right pleural effusion.3. Small right apical pneumothorax. XR Chest 1 View Result Date: April 13, 2025 Verified By: MÓNICA ZALDIVAR DO CLINICAL STATEMENT: IMPRESSION: Right-sided hydropneumothorax is likely not significantly changed withapproximately 6 mm of apical pleural separation. No significant change in right perihilar/suprahilar consolidation concerningfor pneumonia. Stable small left pleural effusion with adjacent hazy airspace disease. Subjective patient sitting up in the chair. feels better. SOB improved. no new complaints Physical Exam Vitals and Measurements T: 36.6 C (Oral) TMIN: 36.5 C (Oral) TMAX: 36.7 C (Oral) HR: 105 (Apical) RR: 18 BP: 103/54 SpO2: 97% Weight Current Weight Dosing Weight: 71.6 kg (04/16/25) Current Weight: 71.2 kg (04/16/25) Current Weight: 73 kg (04/15/25) General : patient resting in bed. Appears comfortable. Heart: regular rate and rhythm Lung: diminished bilaterally to ascultation Abdomen: soft, non tender, bowel sounds present x 4. no distended. Neuro: alert and oriented x3. speech is clear and regular Skin: warm and dry. no rashes noted. Code Status Code Status - Ordered -- 04/13/25 5:33:00 EDT, Full Code, Constant Order Admission Date Discharge Date 04/17/2025 Medications New Prescription albuterol-ipratropium (DuoNeb)3 Milliliter by inhalation four (4) times a day. aspirin (aspirin 81 mg oral tablet, chewable)1 tab(s) by mouth once a day with a meal. emollients, topical (Eucerin topical cream)1 application Topical two (2) times a day. Unchanged albuterol (albuterol MDI (90 mcg/inh) CFC free inhalation aerosol)2 puff(s) by inhalation every 4 hours as needed as needed for wheezing. apixaban (Eliquis 5 mg oral tablet)2.5 Milligram by mouth two (2) times a day. clopidogrel (clopidogrel 75 mg oral tablet)1 tab(s) by mouth every day. docusate (Colace 100 mg oral capsule)1 cap by mouth once a day as needed as needed for constipation. furosemide (Lasix 40 mg oral tablet)1 tab(s) by mouth once a day. guaiFENesin1,200 Milligram by mouth every 12 hours. herbal/nutritional product (cranberry oral tablet)500 Milligram by mouth every day. insulin unit(s) Subcutaneous daily at bedtime. metoprolol (metoprolol succinate 25 mg oral TABLET extended release)0.5 tab(s) by mouth two (2) times a day. Do not crush or chew (controlled release). multivitamin with minerals (Multi-Braden)1 tab by mouth every day. [id number] Milligram by mouth once a day. SITagliptin (Januvia 50 mg oral tablet)1 tab(s) by mouth once a day. tamsulosin (tamsulosin 0.4 mg oral capsule)1 cap by mouth once a day. umeclidinium-vilanterol (Anoro Ellipta 62.5 mcg-25 mcg/inh inhalation powder)1 puff(s) by inhalation once a day. Discontinued cefdinir (cefdinir 300 mg oral capsule)1 cap by mouth every 12 hours for 5 Days. [id number] Milligram by mouth two (2) times a day for 5 Days. Follow Up Follow Up with TONIO FAJARDO DO When:Within 1-2 days Where:[address] [place] [address]- Additional Information: Please call the office to schedule a hospital follow up appointment. Follow Up Appointments No qualifying data available. Follow Up Labs/Studies Discharge Labs No Follow-up Labs Discharge Studies No Follow-up Studies Discharge Diet Transfer of Care Diet - Ordered -- Type of Diet: Soft Diet, 04/17/25 13:13:00 EDT Discharge Activity Transfer of Care Activity - Ordered -- Activity As Tolerated, 04/17/25 13:13:00 EDT Condition on Discharge fair Discharge Disposition SNF Time Spent > 34 min Digitally Signed by JERO ROSARIO on 04/17/2025 01:18 PM [facility] 04-17-2025 Hospital Discharge instructions Patient Education 04/17/2025 13:56:28 Pneumothorax Pneumothorax A pneumothorax is commonly called a collapsed lung. It is a condition in which air leaks from a lung and builds up between the thin layer of tissue that covers the lungs (visceral pleura) and the interior wall of the chest cavity (parietal pleura). The air gets trapped outside the lung, between the lung and the chest wall (pleural space). The air takes up space and prevents the lung from fully expanding. This condition sometimes occurs suddenly with no apparent cause. The buildup of air may be small or large. A small pneumothorax may go away on its own. A large pneumothorax will require treatment and hospitalization. What are the causes? This condition may be caused by: Trauma and injury to the chest wall. Surgery and other medical procedures. A complication of an underlying lung problem, especially chronic obstructive pulmonary disease (COPD) or emphysema. Sometimes the cause of this condition is not known. What increases the risk? You are more likely to develop this condition if: You have an underlying lung problem. You smoke. You are 20-40 years old, male, tall, and underweight. You have a personal or family history of pneumothorax. You have an eating disorder (anorexia nervosa). This condition can also happen quickly, even in people with no history of lung problems. What are the signs or symptoms? Sometimes a pneumothorax will have no symptoms. When symptoms are present, they can include: Chest pain. Shortness of breath. Increased rate of breathing. Bluish color to your lips or skin (cyanosis). How is this diagnosed? This condition may be diagnosed by: A medical history and physical exam. A chest X-ray, chest CT scan, or ultrasound. How is this treated? Treatment depends on how severe your condition is. The goal of treatment is to remove the extra air and allow your lung to expand back to its normal size. For a small pneumothorax: ?No treatment may be needed. ?Extra oxygen is sometimes used to make it go away more quickly. For a large pneumothorax or a pneumothorax that is causing symptoms, a procedure is done to drain the air from your lungs. To do this, a health care provider may use: ?A needle with a syringe. This is used to suck air from a pleural space where no additional leakage is taking place. ?A chest tube. This is used to suck air where there is ongoing leakage into the pleural space. The chest tube may need to remain in place for several days until the air leak has healed. In more severe cases, surgery may be needed to repair the damage that is causing the leak. If you have multiple pneumothorax episodes or have an air leak that will not heal, a procedure called a pleurodesis may be done. A medicine is placed in the pleural space to irritate the tissues around the lung so that the lung will stick to the chest wall, seal any leaks, and stop any buildup of air in that space. If you have an underlying lung problem, severe symptoms, or a large pneumothorax you will usually need to stay in the hospital. Follow these instructions at home: Lifestyle Do not use any products that contain nicotine or tobacco, such as cigarettes and e-cigarettes. These are major risk factors in pneumothorax. If you need help quitting, ask your health care provider. Do not lift anything that is heavier than 10 lb (4.5 kg), or the limit that your health care provider tells you, until he or she says that it is safe. Avoid activities that take a lot of effort (strenuous) for as long as told by your health care provider. Return to your normal activities as told by your health care provider. Ask your health care provider what activities are safe for you. Do not fly in an airplane or scuba dive until your health care provider says it is okay. General instructions Take gwvt-xmb-rgodwcz and prescription medicines only as told by your health care provider. If a cough or pain makes it difficult for you to sleep at night, try sleeping in a semi-upright position in a recliner or by using 2 or 3 pillows. If you had a chest tube and it was removed, ask your health care provider when you can remove the bandage (dressing). While the dressing is in place, do not allow it to get wet. Keep all follow-up visits as told by your health care provider. This is important. Contact a health care provider if: You cough up thick mucus (sputum) that is yellow or green in color. You were treated with a chest tube, and you have redness, increasing pain, or discharge at the site where it was placed. Get help right away if: You have increasing chest pain or shortness of breath. You have a cough that will not go away. You begin coughing up blood. You have pain that is getting worse or is not controlled with medicines. The site where your chest tube was located opens up. You feel air coming out of the site where the chest tube was placed. You have a fever or persistent symptoms for more than 2 3 days. You have a fever and your symptoms suddenly get worse. These symptoms may represent a serious problem that is an emergency. Do not wait to see if the symptoms will go away. Get medical help right away. Call your local emergency services (911 in the [place] Do not drive yourself to the hospital. Summary A pneumothorax, commonly called a collapsed lung, is a condition in which air leaks from a lung and gets trapped between the lung and the chest wall (pleural space). The buildup of air may be small or large. A small pneumothorax may go away on its own. A large pneumothorax will require treatment and hospitalization. Treatment for this condition depends on how severe the pneumothorax is. The goal of treatment is to remove the extra air and allow the lung to expand back to its normal size. This information is not intended to replace advice given to you by your health care provider. Make sure you discuss any questions you have with your health care provider. Document Released: 08/06/2006 Document Revised: 07/19/2018 Document Reviewed: 07/15/2018 [employer] Patient Education 2020 [employer]. Follow Up Care 04/13/2025 00:27:18 With:[facility] - [phone] Address:Unknown When:1-2 days With:TONIO FAJARDO DO Address: [address] [place] [address]- When:1-2 days Comments:Please call the office to schedule a hospital follow up appointment. [facility] 04-17-2025 Note Discharge Instructions Thank you for allowing [facility] to assist you with your healthcare needs. The following is important discharge information regarding your hospital visit. Your Care Team TONIO FAJARDO DO Your Diagnosis Atrial fibrillation BPH (benign prostatic hyperplasia) CAD in [place] artery s/p CABG Cardiac pacemaker in situ Chronic anemia CKD (chronic kidney disease) COPD with hypoxia Diabetes Diastolic heart failure Elevated troponin HLD (hyperlipidemia) HTN (hypertension) PAD (peripheral artery disease) Peripheral neuropathy Pneumonia Right Hydropneumothorax What to do next Follow Up Appointments Follow Up with [facility] - [phone] When:Within 1-2 days Follow Up with TONIO FAJARDO DO When:Within 1-2 days Where:[address] [place] [address]- Additional Information: Please call the office to schedule a hospital follow up appointment. The Following Activity and Diet Have Been Ordered for You Transfer of Care Activity - Ordered -- Activity As Tolerated, 04/17/25 13:13:00 EDT Transfer of Care Diet - Ordered -- Type of Diet: Soft Diet, 04/17/25 13:13:00 EDT The Following Equipment Has Been Ordered for You No qualifying data available. The Following Treatments Have Been Ordered for You Discharge Labs No qualifying data available. Discharge Radiology No qualifying data available. Other Therapies No qualifying data available. Post Acute Orders Transfer of Care Admission Level of Care - Ordered -- Level of Care SNF, 04/17/25 13:29:11 EDT Transfer of Care Code Status - Ordered -- Full Code, Constant Order Transfer of Care Orders Electronically Signed By - Ordered -- 04/17/25 13:13:00 EDT, TUNG CAAL DO Transfer of Care Oxygen Therapy - Ordered -- Oxygen (CONTINUOUS), Mobile in the Home, Nasal Cannula, 3 liters per minute, 1 month(s), 04/17/25 13:13:00 EDT Transfer of Care Prognosis - Ordered -- Fair, Patient Aware: Yes Transfer of Care Rehab Potential - Ordered -- Rehab potential good, 04/17/25 13:13:54 EDT Someone Will Contact You Regarding These Home Health Referrals No home referrals have been ordered for you. No one will call you. Allergies ibuprofen unknown Medications Please ask your primary doctor or pharmacist before taking any other medication not listed, including over the counter drugs, herbal medications, vitamins and or supplements as they may interact with your home medications. What How Much When Instructions Last Dose New albuterol-ipratropium (DuoNeb) 3 Milliliter by inhalation Four (4) times a day New aspirin (aspirin 81 mg oral tablet, chewable) 1 tab(s) by mouth Once a day with a meal New emollients, topical (Eucerin topical cream) 1 application Topical Two (2) times a day Unchanged albuterol (albuterol MDI (90 mcg/ inh) CFC free inhalation aerosol) 2 puff(s) by inhalation Every 4 hours as needed for as needed for wheezing Unchanged apixaban (Eliquis 5 mg oral tablet) 2.5 Milligram by mouth Two (2) times a day Unchanged clopidogrel (clopidogrel 75 mg oral tablet) 1 tab(s) by mouth Every day Unchanged docusate (Colace 100 mg oral capsule) 1 cap by mouth Once a day as needed for as needed for constipation Unchanged furosemide (Lasix 40 mg oral tablet) 1 tab(s) by mouth Once a day Unchanged guaiFENesin 1,200 Milligram by mouth Every 12 hours Unchanged herbal/ nutritional product (cranberry oral tablet) 500 Milligram by mouth Every day Unchanged insulin glargine 30 unit(s) Subcutaneous Daily at bedtime Unchanged metoprolol (metoprolol succinate 25 mg oral TABLET extended release) 0.5 tab(s) by mouth Two (2) times a day Do not crush or chew (controlled release) Unchanged multivitamin with minerals (Multi-Braden) 1 tab by mouth Every day Unchanged pravastatin 20 Milligram by mouth Once a day Unchanged SITagliptin (Januvia 50 mg oral tablet) 1 tab(s) by mouth Once a day Unchanged tamsulosin (tamsulosin 0.4 mg oral capsule) 1 cap by mouth Once a day Unchanged umeclidinium-vilanterol (Anoro Ellipta 62.5 mcg-25 mcg/ inh inhalation powder) 1 puff(s) by inhalation Once a day What How Much When Comments Stop Taking cefdinir (cefdinir 300 mg oral capsule) 1 cap by mouth Every 12 hours Duration: 5 Days Stop Taking predniSONE 20 Milligram by mouth Two (2) times a day Duration: 5 Days Please take this list to your next doctor s visit. Bring all medications you take, including over the counter medications, herbals and other supplements with you to your doctor s visit. Patients and families are reminded to discard old lists and to update any records with all medication providers or retail pharmacies. Education Materials Pneumothorax A pneumothorax is commonly called a collapsed lung. It is a condition in which air leaks from a lung and builds up between the thin layer of tissue that covers the lungs (visceral pleura) and the interior wall of the chest cavity (parietal pleura). The air gets trapped outside the lung, between the lung and the chest wall (pleural space). The air takes up space and prevents the lung from fully expanding. This condition sometimes occurs suddenly with no apparent cause. The buildup of air may be small or large. A small pneumothorax may go away on its own. A large pneumothorax will require treatment and hospitalization. What are the causes? This condition may be caused by: Trauma and injury to the chest wall. Surgery and other medical procedures. A complication of an underlying lung problem, especially chronic obstructive pulmonary disease (COPD) or emphysema. Sometimes the cause of this condition is not known. What increases the risk? You are more likely to develop this condition if: You have an underlying lung problem. You smoke. You are 20-40 years old, male, tall, and underweight. You have a personal or family history of pneumothorax. You have an eating disorder (anorexia nervosa). This condition can also happen quickly, even in people with no history of lung problems. What are the signs or symptoms? Sometimes a pneumothorax will have no symptoms. When symptoms are present, they can include: Chest pain. Shortness of breath. Increased rate of breathing. Bluish color to your lips or skin (cyanosis). How is this diagnosed? This condition may be diagnosed by: A medical history and physical exam. A chest X-ray, chest CT scan, or ultrasound. How is this treated? Treatment depends on how severe your condition is. The goal of treatment is to remove the extra air and allow your lung to expand back to its normal size. For a small pneumothorax: ? No treatment may be needed. ? Extra oxygen is sometimes used to make it go away more quickly. For a large pneumothorax or a pneumothorax that is causing symptoms, a procedure is done to drain the air from your lungs. To do this, a health care provider may use: ? A needle with a syringe. This is used to suck air from a pleural space where no additional leakage is taking place. ? A chest tube. This is used to suck air where there is ongoing leakage into the pleural space. The chest tube may need to remain in place for several days until the air leak has healed. In more severe cases, surgery may be needed to repair the damage that is causing the leak. If you have multiple pneumothorax episodes or have an air leak that will not heal, a procedure called a pleurodesis may be done. A medicine is placed in the pleural space to irritate the tissues around the lung so that the lung will stick to the chest wall, seal any leaks, and stop any buildup of air in that space. If you have an underlying lung problem, severe symptoms, or a large pneumothorax you will usually need to stay in the hospital. Follow these instructions at home: Lifestyle Do not use any products that contain nicotine or tobacco, such as cigarettes and e-cigarettes. These are major risk factors in pneumothorax. If you need help quitting, ask your health care provider. Do not lift anything that is heavier than 10 lb (4.5 kg), or the limit that your health care provider tells you, until he or she says that it is safe. Avoid activities that take a lot of effort (strenuous) for as long as told by your health care provider. Return to your normal activities as told by your health care provider. Ask your health care provider what activities are safe for you. Do not fly in an airplane or scuba dive until your health care provider says it is okay. General instructions Take ixom-iym-eoqjnlt and prescription medicines only as told by your health care provider. If a cough or pain makes it difficult for you to sleep at night, try sleeping in a semi-upright position in a recliner or by using 2 or 3 pillows. If you had a chest tube and it was removed, ask your health care provider when you can remove the bandage (dressing). While the dressing is in place, do not allow it to get wet. Keep all follow-up visits as told by your health care provider. This is important. Contact a health care provider if: You cough up thick mucus (sputum) that is yellow or green in color. You were treated with a chest tube, and you have redness, increasing pain, or discharge at the site where it was placed. Get help right away if: You have increasing chest pain or shortness of breath. You have a cough that will not go away. You begin coughing up blood. You have pain that is getting worse or is not controlled with medicines. The site where your chest tube was located opens up. You feel air coming out of the site where the chest tube was placed. You have a fever or persistent symptoms for more than 2 3 days. You have a fever and your symptoms suddenly get worse. These symptoms may represent a serious problem that is an emergency. Do not wait to see if the symptoms will go away. Get medical help right away. Call your local emergency services (911 in the [place] Do not drive yourself to the hospital. Summary A pneumothorax, commonly called a collapsed lung, is a condition in which air leaks from a lung and gets trapped between the lung and the chest wall (pleural space). The buildup of air may be small or large. A small pneumothorax may go away on its own. A large pneumothorax will require treatment and hospitalization. Treatment for this condition depends on how severe the pneumothorax is. The goal of treatment is to remove the extra air and allow the lung to expand back to its normal size. This information is not intended to replace advice given to you by your health care provider. Make sure you discuss any questions you have with your health care provider. Document Released: 08/06/2006 Document Revised: 07/19/2018 Document Reviewed: 07/15/2018 [employer] Patient Education 2020 [employer] Additional Information VACCINATE! IT SAVES LIVES! Members of the community who have not yet received the COVID-19 vaccine and would like to receive it can visit one of [facility] vaccine clinics. There are many vaccine clinic locations within the [facility]. For locations and available times, please visit [email or web address] It is important to note that some COVID mobile vaccine clinics are held outdoors and may be canceled in rainy or stormy conditions. To learn more about pediatric vaccinations (ages 5-11), we invite you to visit the [facility] webpage. [email or web address]://www.[email or web address] Insight/pa [email or web address]-[email or web address]-Freque [email or web address].html To learn more about the COVID-19 vaccine, we invite you to visit the CDC website for a list of frequently asked questions.https://www.cdc.gov/cor onavirus/2019-ncov/vaccines/faq.h tml [facility] Patient Portal Access Instructions: Stay connected with your healthcare team and access your personal medical information anytime with the [facility] Patient Portal. Please follow the directions below to create your [facility] account: 1.Access the email account you provided upon registration to the hospital/physician office.2.Look for an invitation email from [facility].3.Open the email and access the invitation link: Accept Invitation to [facility].4.Fill in the required johsnon to create your account. To access your account, visit [facility]/[employer]Chart. Click the blue button labeled Access Patient Portal and then log in with the username and password that you created in the steps above. You will be able to view your test results, lab results, a summary of your visits, upcoming appointments and more. There is also a convenient messaging option where you can send secure messages to your provider. In addition, you will have the ability to download any documents or summaries to your computer and/or send the information securely to a physician. Remember that your healthcare information is confidential, so carefully consider who you will allow to [facility] for access to your information. You can also access the [facility] on the [facility] katia. Simply click on Patient Portal and then log into your account. If you would like to receive a full copy of your medical records, please contact the [facility] Medical Records Department by calling [phone], Sunday through Sunday between 8 a.m. and 4:30 p.m. HOW TO SAFELY DISPOSE OF PRESCRIPTION MEDICATIONS Please use one of the following methods to safely dispose of your unused medications. 1.Use a drug disposal kit: the drug disposal pouch allows you to safely discard your old and unused drugs. Ask your nurse to give you one when you are discharged.2.Visit a local take-back location: Many local pharmacies and police departments have programs that collect old and unwanted prescription drugs. Call your local pharmacy or go to http://Incoming Media/0F5Bd6c to find one close to you.3.Make use of household items: Use cat litter or old coffee grounds to dispose medications if other options are not available. Mix your drugs with these household products, seal them in an airtight container and throw it into the garbage. Call [facility]: [phone] to be sure your drugs can be disposed of in this way. Some medicines may require a different approach.4.Never flush your medications down the toilet. IF YOU HAVE BEEN PRESCRIBED AN OPIOID FOR PAIN If you have been prescribed an opioid (such as hydrocodone, oxycodone or morphine), it is critical to understand the possible side effects and risks of opioid pain medications. Even when taken as directed, opioids can have several side effects including: Tolerance, meaning you might need to take more of a medication for the same pain relief. Nausea, vomiting and/or constipation. Sleepiness, dizziness, dry mouth, confusion, depression or itching. Physical dependence, meaning you have withdrawal symptoms when a medication is stopped, can develop within a few days. KNOW YOUR RESPONSIBILITIES It is important to know exactly how much and how often to take the opioid pain medications you are prescribed. Never take opioids in higher amounts or more often than prescribed. Do not combine opioids with alcohol or other drugs that cause drowsiness, such as benzodiazepines, also known as benzos, including diazepam and alprazolam, muscle relaxants or sleep aids. Never sell or share prescription opioids. This is illegal. Store opioids in a secure place and out of reach of others (including children, family, friends and visitors). The last page of this document has been signed and retained as a CHART COPY. Signatures Patient Education Materials Pneumothorax Medication Leaflets My discharge plan and instructions have been reviewed and explained to me and I,PEDRO HILLMAN understand my current condition and have read and understand these discharge instructions. I have received a written copy of the plan/instructions. If I have questions, I am aware that I should contact my doctor. 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 The following is important discharge information regarding your hospital visit. Your Care Team TONIO FAJARDO DO Your Diagnosis Atrial fibrillation BPH (benign prostatic hyperplasia) CAD in [place] artery s/p CABG Cardiac pacemaker in situ Chronic anemia CKD (chronic kidney disease) COPD with hypoxia Diabetes Diastolic heart failure Elevated troponin HLD (hyperlipidemia) HTN (hypertension) PAD (peripheral artery disease) Peripheral neuropathy Pneumonia Right Hydropneumothorax What to do next Follow Up Appointments Follow Up with [facility] - [phone] When:Within 1-2 days Follow Up with TONIO FAJARDO DO When:Within 1-2 days Where:[address] [place] [address]- Additional Information: Please call the office to schedule a hospital follow up appointment. The Following Activity and Diet Have Been Ordered for You Transfer of Care Activity - Ordered -- Activity As Tolerated, 04/17/25 13:13:00 EDT Transfer of Care Diet - Ordered -- Type of Diet: Soft Diet, 04/17/25 13:13:00 EDT The Following Equipment Has Been Ordered for You No qualifying data available. The Following Treatments Have Been Ordered for You Discharge Labs No qualifying data available. Discharge Radiology No qualifying data available. Other Therapies No qualifying data available. Post Acute Orders Transfer of Care Admission Level of Care - Ordered -- Level of Care SNF, 04/17/25 13:29:11 EDT Transfer of Care Code Status - Ordered -- Full Code, Constant Order Transfer of Care Orders Electronically Signed By - Ordered -- 04/17/25 13:13:00 EDT, TUNG CAAL DO Transfer of Care Oxygen Therapy - Ordered -- Oxygen (CONTINUOUS), Mobile in the Home, Nasal Cannula, 3 liters per minute, 1 month(s), 04/17/25 13:13:00 EDT Transfer of Care Prognosis - Ordered -- Fair, Patient Aware: Yes Transfer of Care Rehab Potential - Ordered -- Rehab potential good, 04/17/25 13:13:54 EDT Someone Will Contact You Regarding These Home Health Referrals No home referrals have been ordered for you. No one will call you. Allergies ibuprofen unknown Medications Please ask your primary doctor or pharmacist before taking any other medication not listed, including over the counter drugs, herbal medications, vitamins and or supplements as they may interact with your home medications. What How Much When Instructions Last Dose New albuterol-ipratropium (DuoNeb) 3 Milliliter by inhalation Four (4) times a day New aspirin (aspirin 81 mg oral tablet, chewable) 1 tab(s) by mouth Once a day with a meal New emollients, topical (Eucerin topical cream) 1 application Topical Two (2) times a day Unchanged albuterol (albuterol MDI (90 mcg/ inh) CFC free inhalation aerosol) 2 puff(s) by inhalation Every 4 hours as needed for as needed for wheezing Unchanged apixaban (Eliquis 5 mg oral tablet) 2.5 Milligram by mouth Two (2) times a day Unchanged clopidogrel (clopidogrel 75 mg oral tablet) 1 tab(s) by mouth Every day Unchanged docusate (Colace 100 mg oral capsule) 1 cap by mouth Once a day as needed for as needed for constipation Unchanged furosemide (Lasix 40 mg oral tablet) 1 tab(s) by mouth Once a day Unchanged guaiFENesin 1,200 Milligram by mouth Every 12 hours Unchanged herbal/ nutritional product (cranberry oral tablet) 500 Milligram by mouth Every day Unchanged insulin glargine 30 unit(s) Subcutaneous Daily at bedtime Unchanged metoprolol (metoprolol succinate 25 mg oral TABLET extended release) 0.5 tab(s) by mouth Two (2) times a day Do not crush or chew (controlled release) Unchanged multivitamin with minerals (Multi-Braden) 1 tab by mouth Every day Unchanged pravastatin 20 Milligram by mouth Once a day Unchanged SITagliptin (Januvia 50 mg oral tablet) 1 tab(s) by mouth Once a day Unchanged tamsulosin (tamsulosin 0.4 mg oral capsule) 1 cap by mouth Once a day Unchanged umeclidinium-vilanterol (Anoro Ellipta 62.5 mcg-25 mcg/ inh inhalation powder) 1 puff(s) by inhalation Once a day What How Much When Comments Stop Taking cefdinir (cefdinir 300 mg oral capsule) 1 cap by mouth Every 12 hours Duration: 5 Days Stop Taking predniSONE 20 Milligram by mouth Two (2) times a day Duration: 5 Days Please take this list to your next doctor s visit. Bring all medications you take, including over the counter medications, herbals and other supplements with you to your doctor s visit. Patients and families are reminded to discard old lists and to update any records with all medication providers or retail pharmacies. Additional Information VACCINATE! IT SAVES LIVES! Members of the community who have not yet received the COVID-19 vaccine and would like to receive it can visit one of [facility] vaccine clinics. There are many vaccine clinic locations within the [facility]. For locations and available times, please visit [email or web address] It is important to note that some COVID mobile vaccine clinics are held outdoors and may be canceled in rainy or stormy conditions. To learn more about pediatric vaccinations (ages 5-11), we invite you to visit the [facility] webpage. [email or web address] [email or web address] To learn more about the COVID-19 vaccine, we invite you to visit the CDC website for a list of frequently asked questions.https://www.cdc.gov/cor onavirus/2019-ncov/vaccines/faq.h tml [facility] Patient Portal Access Instructions: Stay connected with your healthcare team and access your personal medical information anytime with the [facility] Patient Portal. Please follow the directions below to create your [facility] account: 1.Access the email account you provided upon registration to the hospital/physician office.2.Look for an invitation email from [facility].3.Open the email and access the invitation link: Accept Invitation to [facility].4.Fill in the required johnson to create your account. To access your account, visit [facility]. Click the blue button labeled Access Patient Portal and then log in with the username and password that you created in the steps above. You will be able to view your test results, lab results, a summary of your visits, upcoming appointments and more. There is also a convenient messaging option where you can send secure messages to your provider. In addition, you will have the ability to download any documents or summaries to your computer and/or send the information securely to a physician. Remember that your healthcare information is confidential, so carefully consider who you will allow to register on the [facility] Patient Portal for access to your information. You can also access the [facility] Patient Portal on the [facility] katia. Simply click on Patient Portal and then log into your account. If you would like to receive a full copy of your medical records, please contact the [facility] Medical Records Department by calling [phone], Sunday through Sunday between 8 a.m. and 4:30 p.m. HOW TO SAFELY DISPOSE OF PRESCRIPTION MEDICATIONS Please use one of the following methods to safely dispose of your unused medications. 1.Use a drug disposal kit: the drug disposal pouch allows you to safely discard your old and unused drugs. Ask your nurse to give you one when you are discharged.2.Visit a local take-back location: Many local pharmacies and police departments have programs that collect old and unwanted prescription drugs. Call your local pharmacy or go to http://Modebo.AddMyBest/3U6Dd9m to find one close to you.3.Make use of household items: Use cat litter or old coffee grounds to dispose medications if other options are not available. Mix your drugs with these household products, seal them in an airtight container and throw it into the garbage. Call [facility]: [phone] to be sure your drugs can be disposed of in this way. Some medicines may require a different approach.4.Never flush your medications down the toilet. IF YOU HAVE BEEN PRESCRIBED AN OPIOID FOR PAIN If you have been prescribed an opioid (such as hydrocodone, oxycodone or morphine), it is critical to understand the possible side effects and risks of opioid pain medications. Even when taken as directed, opioids can have several side effects including: Tolerance, meaning you might need to take more of a medication for the same pain relief. Nausea, vomiting and/or constipation. Sleepiness, dizziness, dry mouth, confusion, depression or itching. Physical dependence, meaning you have withdrawal symptoms when a medication is stopped, can develop within a few days. KNOW YOUR RESPONSIBILITIES It is important to know exactly how much and how often to take the opioid pain medications you are prescribed. Never take opioids in higher amounts or more often than prescribed. Do not combine opioids with alcohol or other drugs that cause drowsiness, such as benzodiazepines, also known as benzos, including diazepam and alprazolam, muscle relaxants or sleep aids. Never sell or share prescription opioids. This is illegal. Store opioids in a secure place and out of reach of others (including children, family, friends and visitors). The last page of this document has been signed and retained as a CHART COPY. Signatures Patient Education Materials Medication Leaflets My discharge plan and instructions have been reviewed and explained to me and I,PEDRO HILLMAN understand my current condition and have read and understand these discharge instructions. I have received a written copy of the plan/instructions. If I have questions, I am aware that I should contact my doctor. 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: Date/Time: Relationship to Patient: ____ Witness Name/Signature: Date/Time: [facility] 04-17-2025 Discharge summary Date of Service 04/17/2025 Discharge Diagnosis 1 - Pneumonia (J18.9 - ICD-10-CM) 2 - Hydropneumothorax (J94.8 - ICD-10-CM) 3 - Cardiac pacemaker in situ (Z95.0 - ICD-10-CM) Hospital Course 80 years old gentleman with past medical history of peripheral arterial disease, persistent atrial fibrillation status post pacemaker placement last week-, former smoker, BPH, CKD stage III, hyperlipidemia, diabetes mellitus type II, peripheral neuropathy, chronic anemia, hypertension, coronary artery disease status post CABG, diastolic heart failure, COPD, chronic hypoxic respiratory failure on 3 L nasal cannula presented as a transfer from [facility] for further evaluation of possible hydropneumothorax. Apparently, patient underwent pacemaker placement at [facility] last week , next day, patient was found to have pleural effusion and underwent thoracentesis and was admitted to rehab at [facility]. Patient found to have hypoxia and tachycardia with chest x-ray showing possible pneumothorax. Patient was afebrile, oxygen saturation 92% on 2 L nasal cannula oxygen. Lab work showed leukocytosis with WBC 13.7, hemoglobin 9.1. BMP with creatinine 1.4 which is around his baseline. Troponin 103. proBNP was 7022. CT chest without contrast showing right loculated hydropneumothorax of estimated 15% of right thoracic volume occupied by air, Patches of dense consolidating right pneumonia. Sizable peripheral blebs and honeycombing in the left mid and base. Patient was given antibiotics and after discussing with cardiothoracic surgery, he was transferred to [facility]. Patient admitted to hospital service, started on antibiotics with cardiothoracic surgery and pulmonology on consultation. No plan for surgical intervention. Pneumothorax seems to be resolved. Patient underwent thoracentesis yesterday with 1000 cc fluid removal. Currently on IV ceftriaxone and completed a 5 day course prior to dc. Heparin transitioned back to eliquis prior to dc. Allergies ibuprofen unknown Procedures thoracentesis Consults Consult to Physician - Ordered -- 04/13/25 5:54:00 EDT, MICHELLE WAGONER MD, Routine, Pneumothorax Consult to Physician - Ordered -- 04/16/25 7:30:00 EDT, ABBI CARMEN MD, Routine, Pleural effusion, exudative Imaging Results and Diagnostics XR Chest 1 View Result Date: April 17, 2025 Verified By: KRISTEN MAKI MD CLINICAL STATEMENT: IMPRESSION: Mild congestion/edema with small bilateral effusions. XR Chest 1 View Result Date: April 15, 2025 Verified By: SHAHBAZ FOLEY MD CLINICAL STATEMENT: IMPRESSION: No postprocedure pneumothorax. US Thoracentesis Right Result Date: April 15, 2025 Verified By: GIBSON REINA MD CLINICAL STATEMENT: IMPRESSION: Successful ultrasound guided thoracentesis This procedure was performed by Olamide Gonzalez PA-C XR Chest 1 View Result Date: April 15, 2025 Verified By: LEVI MARCIAL MD CLINICAL STATEMENT: IMPRESSION: Unchanged pulmonary edema and small bilateral pleural effusions. No pneumothorax is visible. XR Chest 1 View Result Date: April 14, 2025 Verified By: LEVI MARCIAL MD CLINICAL STATEMENT: IMPRESSION: 1. Moderate pulmonary edema.2. Small left pleural effusion and moderate right pleural effusion.3. Small right apical pneumothorax. XR Chest 1 View Result Date: April 13, 2025 Verified By: MÓNICA ZALDIVAR DO CLINICAL STATEMENT: IMPRESSION: Right-sided hydropneumothorax is likely not significantly changed withapproximately 6 mm of apical pleural separation. No significant change in right perihilar/suprahilar consolidation concerningfor pneumonia. Stable small left pleural effusion with adjacent hazy airspace disease. Subjective patient sitting up in the chair. feels better. SOB improved. no new complaints Physical Exam Vitals and Measurements T: 36.6 C (Oral) TMIN: 36.5 C (Oral) TMAX: 36.7 C (Oral) HR: 105 (Apical) RR: 18 BP: 103/54 SpO2: 97% Weight Current Weight Dosing Weight: 71.6 kg (04/16/25) Current Weight: 71.2 kg (04/16/25) Current Weight: 73 kg (04/15/25) General : patient resting in bed. Appears comfortable. Heart: regular rate and rhythm Lung: diminished bilaterally to ascultation Abdomen: soft, non tender, bowel sounds present x 4. no distended. Neuro: alert and oriented x3. speech is clear and regular Skin: warm and dry. no rashes noted. Code Status Code Status - Ordered -- 04/13/25 5:33:00 EDT, Full Code, Constant Order Admission Date Discharge Date 04/17/2025 Medications New Prescription albuterol-ipratropium (DuoNeb)3 Milliliter by inhalation four (4) times a day. aspirin (aspirin 81 mg oral tablet, chewable)1 tab(s) by mouth once a day with a meal. emollients, topical (Eucerin topical cream)1 application Topical two (2) times a day. Unchanged albuterol (albuterol MDI (90 mcg/inh) CFC free inhalation aerosol)2 puff(s) by inhalation every 4 hours as needed as needed for wheezing. apixaban (Eliquis 5 mg oral tablet)2.5 Milligram by mouth two (2) times a day. clopidogrel (clopidogrel 75 mg oral tablet)1 tab(s) by mouth every day. docusate (Colace 100 mg oral capsule)1 cap by mouth once a day as needed as needed for constipation. furosemide (Lasix 40 mg oral tablet)1 tab(s) by mouth once a day. guaiFENesin1,200 Milligram by mouth every 12 hours. herbal/nutritional product (cranberry oral tablet)500 Milligram by mouth every day. insulin unit(s) Subcutaneous daily at bedtime. metoprolol (metoprolol succinate 25 mg oral TABLET extended release)0.5 tab(s) by mouth two (2) times a day. Do not crush or chew (controlled release). multivitamin with minerals (Multi-Braden)1 tab by mouth every day. [id number] Milligram by mouth once a day. SITagliptin (Januvia 50 mg oral tablet)1 tab(s) by mouth once a day. tamsulosin (tamsulosin 0.4 mg oral capsule)1 cap by mouth once a day. umeclidinium-vilanterol (Anoro Ellipta 62.5 mcg-25 mcg/inh inhalation powder)1 puff(s) by inhalation once a day. Discontinued cefdinir (cefdinir 300 mg oral capsule)1 cap by mouth every 12 hours for 5 Days. [id number] Milligram by mouth two (2) times a day for 5 Days. Follow Up Follow Up with TONIO FAJARDO DO When:Within 1-2 days Where:[address] [place] [address]- Additional Information: Please call the office to schedule a hospital follow up appointment. Follow Up Appointments No qualifying data available. Follow Up Labs/Studies Discharge Labs No Follow-up Labs Discharge Studies No Follow-up Studies Discharge Diet Transfer of Care Diet - Ordered -- Type of Diet: Soft Diet, 04/17/25 13:13:00 EDT Discharge Activity Transfer of Care Activity - Ordered -- Activity As Tolerated, 04/17/25 13:13:00 EDT Condition on Discharge fair Discharge Disposition SNF Time Spent > 34 min Digitally Signed by JERO ROSARIO on 04/17/2025 01:18 PM [facility] 04-17-2025 Note Exam Date Time Procedure Performing Provider Status 04/17/25 7:03 AM XR Chest 1 View KRISTEN MAKI MD; Aut h (Verified) [id number] ORIGINAL EXAMINATION: ONE XRAY VIEW OF THE CHEST 04/17/2025 7:03 am COMPARISON: None. HISTORY: ORDERING SYSTEM PROVIDED HISTORY: Reason for Exam: Pleural effusion FINDINGS: Mild congestion/edema suspected with small bilateral effusions. Stable cardiomegaly. Left-sided cardiac pacer device is in place. No pneumothorax is identified. IMPRESSION: Mild congestion/edema with small bilateral effusions. Interpreted by: Kristen Maki MD Preliminary Report By: Krisetn Maki MD Electronically signed By Kristen Maki MD Dictated Date: 04/17/2025 8:00:40 AM Prelim Date: 04/17/2025 8:12:37 AM Sign Date: 04/17/2025 8:12:37 AM Ordering Provider: GLORIA [facility]08-28-2025 NoteORIGINAL PROCEDURE: ULTRASOUND GUIDED THORACENTESIS CLINICAL STATEMENT: Pleural effusion, shortness of breath LATERALITY: Right FLUID REMOVED: 1000 cc FLUID COLOR: Sheldon serous DISPOSITION OF FLUID: Sent to lab [...] performed by Olamide Gonzalez PA-C Interpreted by: Gibson Reina MD Preliminary Report By: Olamide Gonzalez PA-C Electronically signed By Gibson Reina MD Dictated Date: 04/15/2025 1:19:39 PM Prelim Date: 04/15/2025 1:20:18 PM Sign Date: 04/16/2025 5:19:34 PM Ordering Provider: [facility] [id number] Note Date of Service 04/16/2025 Chief Complaint 80 years old gentleman with past medical history of peripheral arterial disease, persistent atrial fibrillation status post pacemaker placement last week-, former smoker, BPH, CKD stage III, hyperlipidemia, diabetes mellitus type II, peripheral neuropathy, chronic anemia, hypertension, coronary artery disease status post CABG, diastolic heart failure, COPD, chronic hypoxic respiratory failure on 3 L nasal cannula presented as a transfer from [facility] for further evaluation of possible hydropneumothorax. Apparently, patient underwent pacemaker placement at [facility] last week , next day, patient was found to have pleural effusion and underwent thoracentesis and was admitted to rehab at [facility]. Patient found to have hypoxia and tachycardia with chest x-ray showing possible pneumothorax. Patient was afebrile, oxygen saturation 92% on 2 L nasal cannula oxygen. Lab work showed leukocytosis with WBC 13.7, hemoglobin 9.1. BMP with creatinine 1.4 which is around his baseline. Troponin 103. proBNP was 7022. CT chest without contrast showing right loculated hydropneumothorax of estimated 15% of right thoracic volume occupied by air, Patches of dense consolidating right pneumonia. Sizable peripheral blebs and honeycombing in the left mid and base. Patient was given antibiotics and after discussing with cardiothoracic surgery, he was transferred to [facility]. Patient admitted to hospital service, started on antibiotics with cardiothoracic surgery and pulmonology on consultation. No plan for surgical intervention. Pneumothorax seems to be resolved. Patient underwent thoracentesis yesterday with 1000 cc fluid removal. Currently on IV ceftriaxone. Subjective Patient seen and examined at bedside. Earlier this morning he felt weak and was lowered from a chair to the floor. No injury reported. Did have low blood pressure that improved later. Denied any lightheadedness/dizziness. No syncopal episode reported. There evaluation, patient was sitting on chair.States he feels better after fluid removal yesterday. Overall weak. Denies any chest pain, palpitations. Currently stable on 3 L nasal cannula oxygen. Objective Vitals and Measurements T: 36.5 C (Oral) TMIN: 36.5 C (Oral) TMAX: 36.8 C (Oral) HR: 108 (Apical) RR: 18 BP: 107/40 SpO2: 98% HT: 167.6 cm WT: 71.6 kg BMI: 25.49 Intake and Output Last 24 hours Intake Medication 20.00 Oral Intake 1030.00 Administration Information 111.67 Output Urinary Catheter Output: 1800.00 Stool Count 0.00 Total Summary Total Intake 1161.67 Total Output 1800.00 Fluid Balance -638.33 Physical Exam Resting comfortably in chair Normocephalic/atraumatic Cardiovascular: Irregular, S1 and S2 present Respiratory: Relatively clear on auscultation, no wheezing, mild basilar crackles, respiration nonlabored Abdomen: Soft, nontender, nondistended Extremities: No lower extremity edema Neurological: AO x 3, grossly nonfocal Weight Current Weight Dosing Weight: 71.6 kg (04/16/25) Current Weight: 71.2 kg (04/16/25) Current Weight: 73 kg (04/15/25) Medications Medications (25) Active Scheduled: (11) albuterol - ipratropium 2.5 mg-0.5 mg/3 mL Inhal Camila UD 3 mL, Inhalation, QIDRT aspirin 81 mg Chewable 81 mg 1 tab(s), Oral, qDayM atorvastatin 10 mg tablet 10 mg 1 tab(s), Oral, qHS cefTRIAXone IVP syringe 2 gram(s) 20 mL, IV Push (INT), qDay emollients (Eucerin Cream) 30gm 1 katia, Topical, BID furosemide 40 mg tablet 40 mg 1 tab(s), Oral, qDay guaifenesin 600 mg ER 1,200 mg 2 tab(s), Oral, q12h insulin lispro 100 units/mL Soln (3 mL) Give 0-10 units/dose, Subcutaneous, TIDAC metoprolol succinate 25 mg ER tablet 25 mg 1 tab(s), Oral, BID multivitamin (Myadec) with minerals Therapeutic Multiple Vitamins with Minerals Tablet 1 tab, Oral,Daily tamsulosin 0.4 mg Capsule 0.4 mg 1 cap(s), Oral, qDay Continuous: (1) heparin 25,000 unit(s) [12 unit(s)/kg/hr] + Dextrose 5% Premix Diluent 250 mL 250 mL, Intravenous, 8.59 mL/hr PRN: (13) acetaminophen 325 mg Tablet 650 mg 2 tab(s), Oral, q4h acetaminophen 325 mg Tablet 650 mg 2 tab(s), Oral, q4h acetaminophen-OXYcodone 325 mg-5 mg Tablet 1 tab(s), Oral, q4h albuterol - ipratropium 2.5 mg-0.5 mg/3 mL Inhal Camila UD 3 mL, Inhalation, q4hRT dextrose 50% Solution Disp syringe 50 mL 25 gram(s) 50 mL, IV Push, AsDirected docusate sodium 100 mg Capsule 100 mg 1 cap(s), Oral, qDay heparin 5,000 units/mL (1 mL) vial 4,000 unit(s) 0.8 mL, IV Push, q6h hydromorphone 1 mg/mL (1mL) INJ 1 mg 1 mL, IV Push, q3h melatonin 3 mg tablet 3 mg 1 tab(s), Oral, qHS metoprolol 1 mg/mL (5mL) vial 5 mg 5 mL, IV Push, q3h ondansetron 2 mg/ 1 mL 2 mL INJ 4 mg 2 mL, IV Push, q4h polyethylene glycol 3350 - UD packet 17 gram(s) 15 mL, Oral, qDay prochlorperazine 10 mg/2 mL vial 5 mg 1 mL, IV Push, q6h Lab Results 04/16 06:38 WBC: 9.0 Hgb: 9.1 L Hct: 27.9 L Platelet: 158 Neutrophil %: 81.5 H Glucose Level: 144 H Sodium Level: 138 Potassium Level: 3.7 BUN: 33.0 H Creatinine Lvl (s): 1.46 H 04/15 06:22 WBC: 9.4 Hgb: 8.6 L Hct: 26.7 L Platelet: 169 Neutrophil %: 82.8 H Glucose Level: 134 H Sodium Level: 140 Potassium Level: 3.8 BUN: 44.0 H Creatinine Lvl (s): 1.43 H EKG Electrocardiogram - Completed -- 04/13/25 5:54:00 EDT, Complete by Nursing 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 Cardiac pacemaker in situ Chronic anemia CKD (chronic kidney disease) COPD with hypoxia Diabetes Diastolic heart failure Elevated troponin HLD (hyperlipidemia) HTN (hypertension) PAD (peripheral artery disease) Peripheral neuropathy Pneumonia Right Hydropneumothorax Sepsis present on admission Postprocedure right-sided loculated hydropneumothorax Pneumonia with pleural effusion Acute on chronic hypoxic respiratory failure secondary to above Chronic heart failure with preserved EF Chronic anemia CKD stage III Generalized weakness Elevated troponin likely type II Persistent atrial fibrillation status post pacemaker BPH Hyperlipidemia Diabetes mellitus type 2 Diabetic peripheral neuropathy COPD without exacerbation Peripheral arterial disease Plan: 1. Patient is currently on IV ceftriaxone for pneumonia. Atypical screen was negative. 2. Right-sided thoracentesis performed and 1000 cc fluid removed. Does meet 1 lights criteria to beexudative. Follow-up with culture data. Chest x-ray from yesterday also had evidence of pulmonary edema and vascular congestion. Cardiothoracic surgery following, no plan for intervention. Recommended conservative management. -- If recurrence of pleural effusion, may need IR guided catheter placement. -- Repeat chest x-ray tomorrow to follow-up on resolution. -- Appreciate input from pulmonology. Discussed with Dr. Carmen. Continue her home oral Lasix 40 mg daily. Was given dose of metolazone yesterday. Will avoid aggressive diuresis in the setting of relatively soft blood pressure. Patient does have underlying CKD with renal function remaining stable. Provide SHELLY hose compression stockings. 3. Continue aerosol breathing treatment. Stable on baseline 3 L of oxygen. 4. Troponin remained flat. Denies any chest pain. 5. Regarding persistent atrial patient s/p pacemaker last week. Metoprolol dose was increased to 25mg twice daily. Monitor heart rate. Currently on heparin by weight for anticoagulation and if no further plans of intervention, transition back to his home anticoagulation by tomorrow. 6. Glycemic control. 7. Continue medications as appropriate. Clopidogrel on hold in case patient requires adequate intervention. Patient currently on aspirin and heparin by weight. Plan for discharge back to custodial facility hopefully next 24-48 hours if he continues to improve clinically and no recurrence of pleural effusion. Note was dictated using voice recognition software so, please excuse for any typographical errors. Level of Care Indication SD monitor (other: specify in note) DVT Prophylaxis Full anticoagulation Maintenance IVF Indication NA / No maintenance IVF Indwelling Urinary Catheter Indication NA No indwelling catheter Anticipated Timeline of Discharge 24 hours-48 hrs Anticipated DC Disposition SNF Digitally Signed by GLORIA DAVIS MD on 04/16/2025 01:33 PM [id number] Consult note Date of Service 04/16/2025 Reason for Consultation Pleural Effusion Referring Physician Dr. Davis History of Present Illness This is an 80-year-old male with a past medical history of atrial fibrillation, peripheral vasculardisease, CKD, hypertension, diabetes, hyperlipidemia, diastolic heart failure, history of COPD, chronic hypoxemia on 3 L nasal cannula who is currently admitted due to hydropneumothorax. The patient recently underwent a pacemaker placement and was found to have a pleural effusion and underwent thoracentesis. Subsequently, the patient was found to have a pneumothorax on chest x-ray. CT scan of the chest showed blebs with hydropneumothorax. The patient has been evaluated by thoracic surgery. Chest x-ray shows near complete resolution of the previously seen pneumothorax. The patient underwent a thoracentesis here at [facility] showing undetectable protein and a slightly elevated relative LDH ratio. Physical Exam Vitals and Measurements T: 36.5 C (Oral) TMIN: 36.5 C (Oral) TMAX: 36.8 C (Oral) HR: 108 (Apical) RR: 18 BP: 107/40 SpO2: 98% HT: 167.6 cm WT: 71.6 kg BMI: 25.49 Weight Current Weight Dosing Weight: 71.6 kg (04/16/25) Current Weight: 71.2 kg (04/16/25) Current Weight: 73 kg (04/15/25) On exam: The patient is alert and interactive and following commands. He has bilateral breath sounds. Abdomen is soft nontender there is no significant edema. Chronic venous stasis changes noted Lab Results 04/16 06:38 WBC: 9.0 Hgb: 9.1 L Hct: 27.9 L Platelet: 158 Neutrophil %: 81.5 H Glucose Level: 144 H Sodium Level: 138 Potassium Level: 3.7 BUN: 33.0 H Creatinine Lvl (s): 1.46 H 04/15 06:22 WBC: 9.4 Hgb: 8.6 L Hct: 26.7 L Platelet: 169 Neutrophil %: 82.8 H Glucose Level: 134 H Sodium Level: 140 Potassium Level: 3.8 BUN: 44.0 H Creatinine Lvl (s): 1.43 H 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 Cardiac pacemaker in situ Chronic anemia CKD (chronic kidney disease) COPD with hypoxia Diabetes Diastolic heart failure Elevated troponin HLD (hyperlipidemia) HTN (hypertension) PAD (peripheral artery disease) Peripheral neuropathy Pneumonia Right Hydropneumothorax Assessment: Pneumothorax has resolved Pleural effusion, mild elevation in the fluid/serum LDH ratio. Suspect this is pseudo exudate and related to diastolic heart failure Abnormal CT scan with multiple blebs, suspect paraseptal emphysema. Chronic hypoxemia on 3 L nasal cannula oxygen Recommendations: No further workup needed for the pleural effusions, Optimization of heart failure per primary service Currently on baseline home oxygen We briefly discussed the role for potential procedures if there is rapid reaccumulation of right-sided pleural effusion. Can be monitored based off of change in symptoms with serial x-rays No further recommendations with pulmonary standpoint. Pulmonary will sign off. Problem List/Past Medical History Ongoing Atrial fibrillation BPH (benign prostatic hyperplasia) CAD in [place] artery Cardiac pacemaker in situ Chronic anemia CKD (chronic kidney disease) COPD with hypoxia Diabetes Diastolic heart failure Elevated troponin HLD (hyperlipidemia) HTN (hypertension) Hydropneumothorax PAD (peripheral artery disease) Peripheral neuropathy Pneumonia Procedure/Surgical History No qualifying data available. Medications Inpatient aspirin, 81 mg= 1 tab(s), Oral, qDayM atorvastatin, 10 mg= 1 tab(s), Oral, qHS Centrum, 1 tab, Oral, Daily Colace, 100 mg= 1 cap(s), Oral, qDay, PRN Dextrose 50% IV Push, 25 gram(s)= 50 mL, IV Push, AsDirected, PRN Dilaudid, 1 mg= 1 mL, IV Push, q3h, PRN DuoNeb, 3 mL, Inhalation, QIDRT DuoNeb, 3 mL, Inhalation, q4hRT, PRN Eucerin topical cream, 1 katia, Topical, BID guaiFENesin, 1200 mg= 2 tab(s), Oral, q12h Heparin for IV 25,000 unit(s) [12 unit(s)/kg/hr] + Dextrose 5% Premix Diluent 250 mL Heparin HBW CARDIAC Bolus 5000 units/mL, 4000 unit(s)= 0.8 mL, 60 unit(s)/kg, IV Push, q6h, PRN HumaLOG 100 units/mL subcutaneous solution, Give 0-10 units/dose, Subcutaneous, TIDAC Lasix, 40 mg= 1 tab(s), Oral, qDay Lopressor IV, 5 mg= 5 mL, IV Push, q3h, PRN melatonin, 3 mg= 1 tab(s), Oral, qHS, PRN metoprolol succinate 25 mg oral TABLET extended release, 25 mg= 1 tab(s), Oral, BID Miralax Powder Packet, 17 gram(s)= 15 mL, Oral, qDay, PRN Percocet 325/5, 1 tab(s), Oral, q4h, PRN prochlorperazine, 5 mg= 1 mL, IV Push, q6h, PRN Rocephin, 2 gram(s)= 20 mL, IV Push (INT), qDay tamsulosin, 0.4 mg= 1 cap(s), Oral, qDay Tylenol, 650 mg= 2 tab(s), Oral, q4h, PRN Tylenol, 650 mg= 2 tab(s), Oral, q4h, PRN Zofran, 4 mg= 2 mL, IV Push, q4h, PRN Home albuterol MDI (90 mcg/inh) CFC free inhalation aerosol, 2 puff(s), Inhalation, q4h, PRN Anoro Ellipta 62.5 mcg-25 mcg/inh inhalation powder, 1 puff(s), Inhalation, qDay cefdinir 300 mg oral capsule, 300 mg= 1 cap(s), Oral, q12h clopidogrel 75 mg oral tablet, 75 mg= 1 tab(s), Oral, Daily Colace 100 mg oral capsule, 100 mg= 1 cap(s), Oral, qDay, PRN cranberry oral tablet, 500 mg, Oral, Daily Eliquis 5 mg oral tablet, 2.5 mg, Oral, BID guaiFENesin, 1200 mg, Oral, q12h insulin glargine, 30 unit(s), Subcutaneous, qHS Januvia 50 mg oral tablet, 50 mg= 1 tab(s), Oral, qDay Lasix 40 mg oral tablet, 40 mg= 1 tab(s), Oral, qDay metoprolol succinate 25 mg oral TABLET extended release, 12.5 mg= 0.5 tab(s), Oral, BID Multi-Braden, 1 tab, Oral, Daily pravastatin, 20 mg, Oral, qDay predniSONE, 20 mg, Oral, BID tamsulosin 0.4 mg oral capsule, 0.4 mg= 1 cap(s), Oral, qDay Allergies ibuprofen unknown Immunizations SARS-CoV-2 (COVID-19) mRNA-1273 vaccine: 0.5 unknown unit (12/02/20) SARS-CoV-2 (COVID-19) mRNA-1273 vaccine: 0.5 unknown unit (11/04/20) Digitally Signed by ABBI CARMEN MD on 04/16/2025 01:14 PM [id number] Note. MICRO - Microbiology PROCEDURE: Acid Fast Bacilli Culture w Stain if Ind [*1] SOURCE: Thoracentesis Fluid BODY SITE: COLLECTED DATE/TIME: 04/15/2025 08:52 EDT RECEIVED DATE/TIME: 04/15/2025 14:18 EDT START DATE/TIME: 04/15/2025 14:18 EDT FREE TEXT SOURCE: STAINS AFS [] Verified Date/Time/Personnel: 04/16/2025 12:33 EDT Acid Fast Smear from Concentrated Specimen: Negative Performing Locations *1: This test was performed at: [address], [address] [place], [place] [id number] Note. MICRO - Microbiology PROCEDURE: Fungal Culture with Stain if Ind [*1] SOURCE: Thoracentesis Fluid BODY SITE: COLLECTED DATE/TIME: 04/15/2025 08:52 EDT RECEIVED DATE/TIME: 04/15/2025 14:18 EDT START DATE/TIME: 04/15/2025 14:18 EDT FREE TEXT SOURCE: STAINS FUNSM [] Verified Date/Time/Personnel: 04/16/2025 12:32 EDT No fungal elements observed by calcofluor white stain. Performing Locations *1: This test was performed at: [address]08-28-2025 Nurse Progress note I was ambulating the patient to the chair, during this the patient stated that their legs felt weak. I then lowered the patient onto the edge of the chair and the patient stated again that their legsfelt weak. I went to reposition the patient onto the chair more, however the patient was adamant that they could not stand due to their legs being too weak. I then lowered the patient from the edge of the chair onto the ground safely. Once the patient was safely onto the ground, I asked if the patient was experiencing any pain, the patient stated that they did not have any pain. I stayed with thepatient and then notified another staff member of this by calling out from inside the room and thatI needed assistance. Of the floor bedside nurse's Cristal RN then came into the room and helped assist me with getting the patient up from the ground and into the chair due to the patient stating that he wanted to go to the chair still after this incident. The bedside nurse Alison PAULSON did a full assessment of the patient after the incident. Digitally Signed by [place] Sanchez on 04/16/2025 10:23 AM [id number] Note. MICRO - Microbiology PROCEDURE: Culture Body Fluid with Gram Stain [*1] SOURCE: Thoracentesis Fluid BODY SITE: COLLECTED DATE/TIME: 04/15/2025 08:52 EDT RECEIVED DATE/TIME: 04/15/2025 14:18 EDT START DATE/TIME: 04/15/2025 14:18 EDT FREE TEXT SOURCE: right PRELIMINARY REPORTS Preliminary Report [] Verified Date/Time/Personnel: 04/15/2025 14:59 EDT Culture has been received in lab and is no growth to date. Routine cultures are held for 5 days. STAINS GS [] Verified Date/Time/Personnel: 04/15/2025 15:51 EDT Sedimented 1+ Polymorphonuclear cells 1+ Mononuclear cells No organisms seen. Performing Locations *1: This test was performed at: [facility], [address] [place] [address], [facility]- , [facility] [id number] Note Date of Service 04/15/2025 Chief Complaint 80 years old gentleman with past medical history of peripheral arterial disease, persistent atrial fibrillation status post pacemaker placement last week-, former smoker, BPH, CKD stage III, hyperlipidemia, diabetes mellitus type II, peripheral neuropathy, chronic anemia, hypertension, coronary artery disease status post CABG, diastolic heart failure, COPD, chronic hypoxic respiratory failure on 3 L nasal cannula presented as a transfer from [facility] for further evaluation of possible hydropneumothorax. Apparently, patient underwent pacemaker placement at [facility] last week , next day, patient was found to have pleural effusion and underwent thoracentesis and was admitted to rehab at [facility]. Patient found to have hypoxia and tachycardia with chest x-ray showing possible pneumothorax. Patient was afebrile, oxygen saturation 92% on 2 L nasal cannula oxygen. Lab work showed leukocytosis with WBC 13.7, hemoglobin 9.1. BMP with creatinine 1.4 which is around his baseline. Troponin 103. proBNP was 7022. CT chest without contrast showing right loculated hydropneumothorax of estimated 15% of right thoracic volume occupied by air, Patches of dense consolidating right pneumonia. Sizable peripheral blebs and honeycombing in the left mid and base. Patient was given antibiotics and after discussing with cardiothoracic surgery, he was transferred to [facility]. Patient admitted to hospital service, started on antibiotics with cardiothoracic surgery consultation. No plan for surgical intervention. Subjective Patient seen and examined at bedside. States his breathing is same. Repeat chest x-ray was reviewedand thoracentesis was ordered. Denies any chest pain, palpitations. Denies lightheadedness /Dizziness. Slightly tachycardic. Objective Vitals and Measurements T: 36.4 C (Oral) TMIN: 36.4 C (Oral) TMAX: 36.9 C (Axillary) HR: 106 (Monitored) RR: 16 BP: 137/66 SpO2: 100% WT: 73.0 kg Intake and Output Last 24 hours Intake Medication 20.00 Oral Intake 1380.00 Administration Information 127.51 Output Thoracentesis Fluid Removed Amount 1000.00 Urine Voided 700.00 Urinary Catheter Output: 1900.00 Stool Count 0.00 Diaper Count 1.00 Total Summary Total Intake 1527.51 Total Output 3600.00 Fluid Balance -2072.49 Physical Exam General: Patient is not in acute distress Neck: Supple, No JVD HEENT: Normocephalic, atraumatic, Cardiac: Regular, S1-S2 present Lungs bilateral diminished entry, basilar crackles, respiration nonlabored, stable on 3 L NC oxygen Abdomen: Bowel sounds audible, abdomen is soft, nontender, Musculoskeletal: Please wear abdominal 4 extremities Extremities: No clubbing or cyanosis, pitting edema Skin: Warm, well perfused, no bruises Neurological: Alert and orientated x3, grossly nonfocal Weight Current Weight Dosing Weight: 71.6 kg (04/13/25) Current Weight: 73 kg (04/15/25) Current Weight: 73.1 kg (04/14/25) Medications Medications (25) Active Scheduled: (11) albuterol - ipratropium 2.5 mg-0.5 mg/3 mL Inhal Camila UD 3 mL, Inhalation, QIDRT aspirin 81 mg Chewable 81 mg 1 tab(s), Oral, qDayM atorvastatin 10 mg tablet 10 mg 1 tab(s), Oral, qHS cefTRIAXone IVP syringe 2 gram(s) 20 mL, IV Push (INT), qDay emollients (Eucerin Cream) 30gm 1 katia, Topical, BID furosemide 40 mg tablet 40 mg 1 tab(s), Oral, qDay guaifenesin 600 mg ER 1,200 mg 2 tab(s), Oral, q12h insulin lispro 100 units/mL Soln (3 mL) Give 0-10 units/dose, Subcutaneous, TIDAC metoprolol succinate 25 mg ER tablet 25 mg 1 tab(s), Oral, BID multivitamin (Myadec) with minerals Therapeutic Multiple Vitamins with Minerals Tablet 1 tab, Oral,Daily tamsulosin 0.4 mg Capsule 0.4 mg 1 cap(s), Oral, qDay Continuous: (1) heparin 25,000 unit(s) [12 unit(s)/kg/hr] + Dextrose 5% Premix Diluent 250 mL 250 mL, Intravenous, 8.59 mL/hr PRN: (13) acetaminophen 325 mg Tablet 650 mg 2 tab(s), Oral, q4h acetaminophen 325 mg Tablet 650 mg 2 tab(s), Oral, q4h acetaminophen-OXYcodone 325 mg-5 mg Tablet 1 tab(s), Oral, q4h albuterol - ipratropium 2.5 mg-0.5 mg/3 mL Inhal Camila UD 3 mL, Inhalation, q4hRT dextrose 50% Solution Disp syringe 50 mL 25 gram(s) 50 mL, IV Push, AsDirected docusate sodium 100 mg Capsule 100 mg 1 cap(s), Oral, qDay heparin 5,000 units/mL (1 mL) vial 4,000 unit(s) 0.8 mL, IV Push, q6h hydromorphone 1 mg/mL (1mL) INJ 1 mg 1 mL, IV Push, q3h melatonin 3 mg tablet 3 mg 1 tab(s), Oral, qHS metoprolol 1 mg/mL (5mL) vial 5 mg 5 mL, IV Push, q3h ondansetron 2 mg/ 1 mL 2 mL INJ 4 mg 2 mL, IV Push, q4h polyethylene glycol 3350 - UD packet 17 gram(s) 15 mL, Oral, qDay prochlorperazine 10 mg/2 mL vial 5 mg 1 mL, IV Push, q6h Lab Results 04/15 06:22 WBC: 9.4 Hgb: 8.6 L Hct: 26.7 L Platelet: 169 Neutrophil %: 82.8 H Glucose Level: 134 H Sodium Level: 140 Potassium Level: 3.8 BUN: 44.0 H Creatinine Lvl (s): 1.43 H 04/14 18:34 Protime: 13.9 PT International Ratio: 1.2 04/14 07:56 WBC: 10.8 Hgb: 9.0 L Hct: 29.0 L Platelet: 165 Neutrophil %: 85.6 H Glucose Level: 88 Sodium Level: 143 Potassium Level: 4.3 BUN: 47.0 H Creatinine Lvl (s): 1.45 H EKG Electrocardiogram - InProcess -- 04/13/25 5:54:00 EDT, Complete by Nursing 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 Cardiac pacemaker in situ Chronic anemia CKD (chronic kidney disease) COPD with hypoxia Diabetes Diastolic heart failure Elevated troponin HLD (hyperlipidemia) HTN (hypertension) PAD (peripheral artery disease) Peripheral neuropathy Pneumonia Right Hydropneumothorax Sepsis present on admission Postprocedure right-sided loculated hydropneumothorax Pneumonia with pleural effusion Acute on chronic hypoxic respiratory failure secondary to above Chronic heart failure with preserved EF Chronic anemia CKD stage III Elevated troponin Persistent atrial fibrillation status post pacemaker BPH Hyperlipidemia Diabetes mellitus type 2 Diabetic peripheral neuropathy COPD without exacerbation Peripheral arterial disease Plan: 1. Patient is currently on IV ceftriaxone for pneumonia. Atypical screen was negative. Azithromycin has been discontinued. Screen negative, azithromycin can be discontinued. 2. Chest x-ray from today personally reviewed, showing pulmonary edema and persistent pleural effusion. Pneumothorax seems to be resolved. Right-sided thoracentesis ordered and 1000 cc fluid removed. Fluid pH 7.4. Follow-up with further fluid analysis and studies. Cardiothoracic surgery following, no plan for intervention. Recommended conservative management. Ifrecurrence of pleural effusion, may need IR guided catheter placement. Continue oral Lasix 40 mg daily. 1 dose of metolazone. 3. Continue aerosol breathing treatment. Stable on baseline 3 L of oxygen. 4. Troponin remained flat. Denies any chest pain. 5. Regarding persistent atrial patient s/p pacemaker last week. Increased metoprolol dose to 25 mg twice daily. Apixaban is on hold. Currently on heparin by weight. 6. Glycemic control. 7. Continue medications as appropriate. Clopidogrel on hold in case patient requires procedure. Patient currently on aspirin and heparin by weight. Plan for discharge back to custodial facility once medically stable. No family at bedside to update. Plan was discussed with patient, questions were addressed. Note was dictated using voice recognition software so, please excuse for any typographical errors. Level of Care Indication SD monitor (other: specify in note) DVT Prophylaxis Full anticoagulation Maintenance IVF Indication NA / No maintenance IVF Indwelling Urinary Catheter Indication NA No indwelling catheter Anticipated Timeline of Discharge 48 hours Anticipated DC Disposition SNF Digitally Signed by GLORIA DAVIS MD on 04/15/2025 04:24 PM [id number] Note* Exam Date Time Procedure Performing Provider Status 04/15/25 11:36 AM XR Chest 1 View SHAHBAZ FOLEY MD; Aut h (Verified) [id number] ORIGINAL EXAMINATION: ONE XRAY VIEW OF THE CHEST04/15/2025 11:36 am Portable upright COMPARISON: Same day HISTORY: ORDERING SYSTEM PROVIDED HISTORY: Reason for Exam: s/p RIGHT thoracentesis, FINDINGS: Right pleural effusion has decreased. No pneumothorax is seen. No other significant change. IMPRESSION: No postprocedure pneumothorax. Interpreted by: Shahbaz Foley MD Preliminary Report By: Shahbaz Foley MD Electronically signed By Shahbaz Foley MD Dictated Date: 04/15/2025 11:43:16 AM Prelim Date: 04/15/2025 11:43:46 AM Sign Date: 04/15/2025 11:43:46 AM Ordering Provider: OLAMIDE GONZALEZ [id number] Note* Exam Date Time Procedure Performing Provider Status 04/15/25 11:35 AM US Thoracentesis Right NUNO GIBSON Smith; Auth (Verified) [id number] ORIGINAL PROCEDURE: ULTRASOUND GUIDED THORACENTESIS CLINICAL STATEMENT: Pleural effusion, shortness of breath LATERALITY: Right FLUID REMOVED: 1000 cc FLUID COLOR: Sheldon serous DISPOSITION OF FLUID: Sent to lab [...] performed by Olamide Gonzalez PA-C Interpreted by: Gibson Reina MD Preliminary Report By: Olamide Gonzalez PA-C Electronically signed By Gibson Reina MD Dictated Date: 04/15/2025 1:19:39 PM Prelim Date: 04/15/2025 1:20:18 PM Sign Date: 04/16/2025 5:19:34 PM Ordering Provider: [facility]08-27-2025 Note US Procedure Record Summary Primary Physician: OLAMIDE GONZALEZ PA-C Finalized Date/Time: 04/15/25 11:32:18 Pt. Name: PEDRO HILLMANO.B./Sex: 1945 Male Med Rec #: [id number] Physician: DAVID STERLING MD Financial #: [id number] Pt. Type: I Room/Bed: 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 Operator Helper Details Time In 04/15/25 11:08:00 04/15/25 11:08:00 Time Out 04/15/25 11:24:00 04/15/25 11:24:00 Procedure/Preference US Thoracentesis Right US Thoracentesis Right Card (SN) (SN) Last Modified By: Michaela Barnard Lauren M 04/15/25 11:24:43 04/15/25 11:24:43 Radiology Procedures- US Entry 1 Procedure/Preference US Thoracentesis Right Actual Procedure US Thoracentesis Right Card (SN) Primary Procedure Yes Primary Surgeon OLAMIDE GONZALEZ PA-C Anesthesia/Sedation Local Type Additional Procedure Times Start 04/15/25 11:12:00 Stop 04/15/25 11:24:00 Specialty Service SN Radiology Procedure EBL 0 mL Last Modified By: Michaela Barnard 04/15/25 11:24:56 Cultures and Specimens- US Entry 1 Kind Specimen Type Fluid Last Modified By: Michaela Barnard 04/15/25 11:15:34 General Case Data- US Entry 1 Case Information Room [facility] Receiving Case Level IR Level 2 Wound Class None Specialty SN Radiology Procedure ASA Class None Diagnosis Preop Diagnosis pleural eff Postop Same As Preop Yes Postop Diagnosis pleural eff Last Modified By: Michaela Barnard 04/15/25 11:16:10 Medication Administration- US Entry 1 Medication 2% Lidocaine Route of Admin Local Dose 8 VORB Administered by Yes Administered by: OLAMIDE GONZALEZ Physician? ROGER Last Modified By: Michaela Barnard 04/15/25 11:15:23 Case Times- US Entry 1 Patient In Procedure Patient In OR 04/15/25 11:08:00 Patient Out of OR 04/15/25 11:24:00 Procedure Start/Stop Procedure Start Time 04/15/25 11:12:00 Procedure Stop Time 04/15/25 11:24:00 Last Modified By: Michaela Barnard 04/15/25 11:24:46 Immediate Post Procedure Note- US Entry 1 Immediate Post Yes Findings 1000cc sheldon fluid Procedure Note drained from Right displayed for pleural space Physician to review Closure Technique Closure Technique Primary Last Modified By: Michaela Barnard 04/15/25 11:32:15 Immediate Post Procedure Note- US Signed By: OLAMIDE GONZALEZ PA-C 04/15/25 11:31 OLAMIDE GONZALEZ PA-C 04/15/25 11:31 Allergy Information- US Entry 1 Allergies Reviewed? Yes Allergies Reviewed Medical Record With Last Modified By: Michaela Barnard 04/15/25 11:11:43 Radiology Protocols/Time Out- US Entry 1 Preprocedure Clinician Verifies Correct patient ID When Clinically Confirmation of correct using name & date Indicated side(s) and site(s), or MRN, Accurate Correct diagnostic and procedure, complete radiology tests Informed Consent, H & P available update immediately prior to procedure, if applicable, Sync button on, Clinical team introduction complete OR/Procedure Room/Bedside Time 04/15/25 11:08:00 Clinician Verifies Correct patient identity including EMR & records using name and date or medical record number, Accurate procedure consent form, Correct patient position, Necessary equipment is available Instrument Sterility Procedure US Thoracentesis Right (SN) Last Modified By: Michaela Barnard 04/15/25 11:15:15 Skin Prep - US Entry 1 Procedure US Thoracentesis Right (SN) Skin Prep Prep Area Back Side Right Prep Agents Chloraprep Hair Removal Method N/A Last Modified By: Michaela Barnard 04/15/25 11:15:27 Patient Positioning- US Entry 1 Procedure US Thoracentesis Right Body Position OP Left Lateral (SN) Feet Uncrossed? Yes Pressure Points Yes Checked Last Modified By: Michaela Barnard 04/15/25 11:15:31 Communications- US Entry 1 Event Report Given to Floor Communication By Michaela Barnard Nurse Last Modified By: Michaela Barnard 04/15/25 11:15:44 Radiology Procedure Plan - US Entry 1 Radiology - Nursing Care Plan Radiology - Action Plan Action Plan - Patient demonstrates Outcome Statement knowledge of the expected reseponses to the invasive procedure, Patient's value system, lifestyle, ethnicity, and culture are considered, respected, and incorporated in the perioperative plan of care., Patient is free from signs and symptoms of infection., Patient is free from signs and symptoms of injury related to positioning., Patient receives appropriate medication(s), safely administered during the perioperative period., Patient is free from signs and symptoms of injury caused by extraneous objects (equipment, instrumentation, sponges, or sharps). Outcomes Met? Yes Technology Auditor OLAMIDE GONZALEZ Completing PA-C Procedure Plan Last Modified By: Michaela Barnard 04/15/25 11:16:00 Radiology Lines and Procedures- US Entry 1 Radiology Sedation Case Times Sedation Total Time 0 Radiology - Fluid/Drainage Fluid Amount mL: 1000 ml Fluid Description sheldon RAD - US [place], Guidewires, Cath.... Catheters OneStep Catheter 5 Fr x 7 cm Radiology Urinary Catheter Radiology Procedure Site Site Condition No complications Dressing Type Bandaids Last Modified By: Michaela Barnard 04/15/25 11:24:37 Transfer Post Procedure- US Entry 1 RAD - Transport to Recovery Patient Transported IV Via Ambulatory With Post-op Destination Receiving Post Procedure Time Out Double Verification Yes Date/Time Verified 04/15/25 11:24:00 of ID band on patient Completed Verfied ID Band on OLAMIDE GONZALEZ by Akil DURAN Lauren M Last Modified By: Michaela Barnard 04/15/25 11:25:00 Case Comments Finalized By: Michaela Barnard Document Signatures Signed By: Michaela Barnard 04/15/25 11:32 [id number] NoteBody Fluid Path ReviewNegative for malignant cells. (This evaluation is based on a screening review of one cytospin slide prepared primarily for differential cell count; if clinical index of suspicion is high, Cytology evaluation is recommended, as clinically indicated) *NA* (04/15/25 10:30 AM) Path Review Subsection 08-27-2025 Cardiothoracic surgery Consult note Date of Service 04/13/2025 Reason for Consultation Pneumothorax Referring Physician Dr. Sterling History of Present Illness This is a split/shared visit with Dr. Wagoner. Is an 80-year-old male with past medical history of PAD, atrial fibrillation status post permanent pacemaker insertion on 04/09/2025 on [facility], former smoker, BPH, chronic kidney disease stage III, hyperlipidemia, diabetes, peripheral neuropathy, chronic anemia, hypertension, CAD status post CABG (6 years ago), diastolic heart failure, and COPD (wears 3 L nasal cannula at home). He underwent insertion of a left sided permanent pacemaker on , 04/09/2025 at [facility]. The following day, he had a chest x-ray completed revealing a right pleural effusion and underwent a thoracentesis(amount of volume removed unknown). He was discharged to [place] rehab facility same day. While at rehab facility, he was noted to be hypoxic and tachycardic and a chest x-ray was completed showing aright pneumothorax. He was taken to [place] emergency room where he was further evaluated with a CTof the chest without contrast which revealed a right loculated hydropneumothorax of an estimated 15% of the right thoracic volume occupied by air, apical and some subpulmonic patches of dense consolidating right pneumonia, sizable peripheral blebs and honeycombing in the left mid zone and base. He was started on antibiotic therapy, placed on 100% nonrebreather mask, and transferred to [facility] for further evaluation. Cardiothoracic surgery has been consulted for evaluation of right pneumothorax. Last dose of Eliquis and Plavix appear to have been taken on 04/12/2025. Review of Systems Constitutional: Denies fever, chills, weight loss, weight gain HEENT: Wears glasses and has upper and lower dentures Respiratory: Currently denies any shortness of breath, cough, wheezing CV: Denies chest pain, syncope, PND Vascular: Denies claudication, varicose veins, nonhealing ulcers GI: Denies nausea, vomiting, constipation, diarrhea : Denies dysuria or hematuria Neuro: Anastasi neuropathy in bilateral lower extremities, positive weakness; Nuys any memory loss,vertigo Endo: Denies heat/cold tolerance, hair loss, polyuria Wilmer/oncology: Denies bleeding, bruising, lymphadenopathy Muscular/skeletal: Denies arthralgia, back pain, leg cramps Psych: Denies anxiety, depression, suicidal ideations Physical Exam Vitals and Measurements T: 36.6 C (Oral) HR: 108 RR: 18 BP: 121/72 SpO2: 100% HT: 167.6 cm WT: 71.6 kg BMI: 25.49 Weight Dosing Weight: 71.6 kg (04/13/25) Additional: Alert, oriented x 4, appropriate HEENT: Normocephalic, atraumatic Lungs:Unlabored respirations, lung sounds clear bilaterally, SpO2 100% on 15 L nonrebreather Heart: One-to-one V pacing, S1-S2, no murmur or rub, heart rate 106-108; left anterior chest permanent pacer site dressed with Aquacel dressing and intact Abdo: Soft, nontender, bowel sounds present Extremities: Well-perfused, pedal pulses +2 bilaterally, no lower leg edema Integumentary: Intact, no rashes Neuro: Cranial nerves II through VIII intact Lab Results 04/13 07:20 WBC: 11.6 H Hgb: 9.4 L Hct: 29.7 L Platelet: 201 Neutrophil %: 90.6 H Protime: 14.5 H PT International Ratio: 1.3 Glucose Level: 192 H Sodium Level: 143 Potassium Level: 4.5 BUN: 49.0 H Creatinine Lvl (s): 1.47 H Imaging Results and Diagnostics XR Chest 1 View Result Date: April 13, 2025 Verified By: MÓNICA ZALDIVAR DO CLINICAL STATEMENT: IMPRESSION: Right-sided hydropneumothorax is likely not significantly changed with approximately 6 mm of apical pleural separation. No significant change in right perihilar/suprahilar consolidation concerning for pneumonia. Stable small left pleural effusion with adjacent hazy airspace disease. Assessment/Plan 1. Right Hydropneumothorax CT of the chest completed at [facility] on 04/12/2025 showing right loculated hydropneumothorax with an estimated 15% of right thoracic volume occupied by air Patient has been on 100% nonrebreather Currently denies any shortness of breath or chest pain Stat chest x-ray completed this afternoon showing Right-sided hydropneumothorax not significantly changed with approximately 6 mm apical pleural separation No surgical intervention planned at this time after discussion with Dr. Wagoner via phone. Please see Dr. Wagoner's addendum to follow. 2. Pneumonia CT of the chest completed at [facility] on 04/12/2025 showed apical and some subpulmonic patches of dense consolidating right pneumonia WBC 11.6 Patient has been afebrile Currently on azithromycin and Rocephin 3. Elevated troponin 4. Atrial fibrillation 5. Cardiac pacemaker in situ 6. PAD (peripheral artery disease) 7. BPH (benign prostatic hyperplasia) 8. CKD (chronic kidney disease) 9. HLD (hyperlipidemia) 10. Diabetes 11. Peripheral neuropathy 12. Chronic anemia 13. HTN (hypertension) 14. CAD in [facility] artery s/p CABG 15. Diastolic heart failure 16. COPD with hypoxia 48 minutes of independent KATIA time spent obtaining past medical history from EMR, conducting [facility] to request CT of the chest imaging, completing [id number]-[id number] visit with patient at bedside, obtaining physical exam, and dictating details of today's consultation. Problem List/Past Medical History Ongoing Atrial fibrillation BPH (benign prostatic hyperplasia) CAD in [facility] artery Cardiac pacemaker in situ Chronic anemia CKD (chronic kidney disease) COPD with hypoxia Diabetes Diastolic heart failure Elevated troponin HLD (hyperlipidemia) HTN (hypertension) Hydropneumothorax PAD (peripheral artery disease) Peripheral neuropathy Pneumonia Procedure/Surgical History No qualifying data available. Medications Inpatient Dextrose 50% IV Push, 25 gram(s)= 50 mL, IV Push, AsDirected, PRN Dilaudid, 1 mg= 1 mL, IV Push, q3h, PRN DuoNeb, 3 mL, Inhalation, q4hRT, PRN guaiFENesin, 200 mg= 10 mL, Oral, q4h, PRN HumaLOG 100 units/mL subcutaneous solution, Give 0-10 units/dose, Subcutaneous, TIDAC Lopressor IV, 5 mg= 5 mL, IV Push, q3h, PRN melatonin, 3 mg= 1 tab(s), Oral, qHS, PRN Miralax Powder Packet, 17 gram(s)= 15 mL, Oral, qDay, PRN NS 1,000 mL, 1000 mL, Intravenous Percocet 325/5, 1 tab(s), Oral, q4h, PRN prochlorperazine, 5 mg= 1 mL, IV Push, q6h, PRN Rocephin, 2 gram(s)= 20 mL, IV Push (INT), qDay Tylenol, 650 mg= 2 tab(s), Oral, q4h, PRN Tylenol, 650 mg= 2 tab(s), Oral, q4h, PRN Zithromax IV Zofran, 4 mg= 2 mL, IV Push, q4h, PRN Home albuterol MDI (90 mcg/inh) CFC free inhalation aerosol, 2 puff(s), Inhalation, q4h, PRN Anoro Ellipta 62.5 mcg-25 mcg/inh inhalation powder, 1 puff(s), Inhalation, qDay cefdinir 300 mg oral capsule, 300 mg= 1 cap(s), Oral, q12h clopidogrel 75 mg oral tablet, 75 mg= 1 tab(s), Oral, Daily Colace 100 mg oral capsule, 100 mg= 1 cap(s), Oral, qDay, PRN cranberry oral tablet, 500 mg, Oral, Daily Eliquis 5 mg oral tablet, 2.5 mg, Oral, BID guaiFENesin, 1200 mg, Oral, q12h insulin glargine, 30 unit(s), Subcutaneous, qHS Januvia 50 mg oral tablet, 50 mg= 1 tab(s), Oral, qDay Lasix 40 mg oral tablet, 40 mg= 1 tab(s), Oral, qDay metoprolol succinate 25 mg oral TABLET extended release, 12.5 mg= 0.5 tab(s), Oral, BID Multi-Braden, 1 tab, Oral, Daily pravastatin, 20 mg, Oral, qDay predniSONE, 20 mg, Oral, BID tamsulosin 0.4 mg oral capsule, 0.4 mg= 1 cap(s), Oral, qDay Allergies ibuprofen unknown Immunizations No qualifying data available. This note was generated using a voice recognition system. As a result, errors are possible and common, including incorrect words, spellings, grammar, gender, phrases, and punctuation that may be out of context or that were missed in checking this note before saving. Reasonable effort is made to correct such errors, but with demands of normal work flow, many are missed. Digitally Signed by COLLEEN DOE on 04/13/2025 03:08 PM [facility] [id number] Note* Exam Date Time Procedure Performing Provider Status 04/15/25 6:48 AM XR Chest 1 View LEVI MARCIAL MD; Auth (Verified) [id number] ORIGINAL EXAMINATION: ONE XRAY VIEW OF THE [...] No pneumothorax is visible. Interpreted by: Levi Marcial MD Preliminary Report By: Levi Marcial MD Electronically signed By Levi Marcial MD Dictated Date: 04/15/2025 7:20:27 AM Prelim Date: 04/15/2025 7:22:03 AM Sign Date: 04/15/2025 7:22:03 AM Ordering Provider: GLORIA DAVIS [facility] [id number] Note* Exam Date Time Procedure Performing Provider Status 04/14/25 9:03 PM Electrocardiogram - EKG - CV BRAYAN BOWDEN MD; Auth (Verified) ECG Final Report SINUS TACHYCARDIA VENTRICULAR PREMATURE COMPLEX RIGHT BUNDLE BRANCH BLOCK Electronic Signature: BRAYAN FRANCO MD 04/15/2025 22:51:41 [facility] [id number] Note Date of Service 04/14/2025 Chief Complaint Follow-up with right-sided hydropneumothorax, pneumonia XR Chest 1 View Result Date: April 14, 2025 Verified By: AGGIE STRATTON, LEVI Lozano CLINICAL STATEMENT: IMPRESSION: 1. Moderate pulmonary edema.2. Small left pleural effusion and moderate right pleural effusion.3. Small right apical pneumothorax. XR Chest 1 View Result Date: April 13, 2025 Verified By: MÓNICA ZALDIVAR DO CLINICAL STATEMENT: IMPRESSION: Right-sided hydropneumothorax is likely not significantly changed withapproximately 6 mm of apical pleural separation. No significant change in right perihilar/suprahilar consolidation concerningfor pneumonia. Stable small left pleural effusion with adjacent hazy airspace disease. Subjective Patient seen examined at bedside. Stable on 3 L nasal oxygen. Concern of some shortness of breath denies any worsening. Denies worsening cough. Production. Chest x-ray from today personally reviewed showing moderate pulmonary edema and small left and right-sided moderate pleural effusion. Small right apical pneumothorax. No plan for intervention from cardiothoracic surgery as per discussion. Tachycardic with heart rate in 100s. Objective Vitals and Measurements T: 36.7 C (Oral) TMIN: 36.4 C (Oral) TMAX: 36.8 C (Oral) HR: 114 (Monitored) RR: 16 BP: 117/58 SpO2: 98% WT: 73.1 kg Intake and Output Last 24 hours Intake Medication 282.00 Oral Intake 460.00 Output Urine Voided 0.00 Urinary Catheter Output: 450.00 Stool Count 0.00 Total Summary Total Intake 742.00 Total Output 450.00 Fluid Balance 292.00 Physical Exam General: Patient is not in acute distress Neck: Supple, No JVD HEENT: Normocephalic, atraumatic, Cardiac: Irregular, S1 and S2 present Lungs: Bibasilar crackles, respirations unlabored, no wheezing Abdomen: Bowel sounds audible, abdomen is soft, nontender, Musculoskeletal: Overall weak, Extremities: No lower extremity edema Skin: Warm, well perfused, pacemaker site looks clean Neurological: Alert and orientated x3, grossly nonfocal Weight Current Weight Dosing Weight: 71.6 kg (04/13/25) Current Weight: 73.1 kg (04/14/25) Medications Medications (24) Active Scheduled: (10) albuterol - ipratropium 2.5 mg-0.5 mg/3 mL Inhal Camila UD 3 mL, Inhalation, QIDRT atorvastatin 10 mg tablet 10 mg 1 tab(s), Oral, qHS cefTRIAXone IVP syringe 2 gram(s) 20 mL, IV Push (INT), qDay emollients (Eucerin Cream) 30gm 1 katia, Topical, BID furosemide 40 mg tablet 40 mg 1 tab(s), Oral, qDay guaifenesin 600 mg ER 1,200 mg 2 tab(s), Oral, q12h insulin lispro 100 units/mL Soln (3 mL) Give 0-10 units/dose, Subcutaneous, TIDAC metoprolol succinate 25 mg ER tablet 25 mg 1 tab(s), Oral, BID multivitamin (Myadec) with minerals Therapeutic Multiple Vitamins with Minerals Tablet 1 tab, Oral,Daily tamsulosin 0.4 mg Capsule 0.4 mg 1 cap(s), Oral, qDay Continuous: (1) heparin 25,000 unit(s) [12 unit(s)/kg/hr] + Dextrose 5% Premix Diluent 250 mL 250 mL, Intravenous, 8.59 mL/hr PRN: (13) acetaminophen 325 mg Tablet 650 mg 2 tab(s), Oral, q4h acetaminophen 325 mg Tablet 650 mg 2 tab(s), Oral, q4h acetaminophen-OXYcodone 325 mg-5 mg Tablet 1 tab(s), Oral, q4h albuterol - ipratropium 2.5 mg-0.5 mg/3 mL Inhal Camila UD 3 mL, Inhalation, q4hRT dextrose 50% Solution Disp syringe 50 mL 25 gram(s) 50 mL, IV Push, AsDirected docusate sodium 100 mg Capsule 100 mg 1 cap(s), Oral, qDay heparin 5,000 units/mL (1 mL) vial 4,000 unit(s) 0.8 mL, IV Push, q6h hydromorphone 1 mg/mL (1mL) INJ 1 mg 1 mL, IV Push, q3h melatonin 3 mg tablet 3 mg 1 tab(s), Oral, qHS metoprolol 1 mg/mL (5mL) vial 5 mg 5 mL, IV Push, q3h ondansetron 2 mg/ 1 mL 2 mL INJ 4 mg 2 mL, IV Push, q4h polyethylene glycol 3350 - UD packet 17 gram(s) 15 mL, Oral, qDay prochlorperazine 10 mg/2 mL vial 5 mg 1 mL, IV Push, q6h Lab Results 04/14 07:56 WBC: 10.8 Hgb: 9.0 L Hct: 29.0 L Platelet: 165 Neutrophil %: 85.6 H Glucose Level: 88 Sodium Level: 143 Potassium Level: 4.3 BUN: 47.0 H Creatinine Lvl (s): 1.45 H 04/13 07:20 WBC: 11.6 H Hgb: 9.4 L Hct: 29.7 L Platelet: 201 Neutrophil %: 90.6 H Protime: 14.5 H PT International Ratio: 1.3 Glucose Level: 192 H Sodium Level: 143 Potassium Level: 4.5 BUN: 49.0 H Creatinine Lvl (s): 1.47 H EKG No qualifying data available. 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 Cardiac pacemaker in situ Chronic anemia CKD (chronic kidney disease) COPD with hypoxia Diabetes Diastolic heart failure Elevated troponin HLD (hyperlipidemia) HTN (hypertension) PAD (peripheral artery disease) Peripheral neuropathy Pneumonia Right Hydropneumothorax Sepsis present on admission Postprocedure right-sided loculated hydropneumothorax Pneumonia with pleural effusion Acute on chronic hypoxic respiratory failure secondary to above Chronic anemia CKD stage III Elevated troponin Chronic heart failure with preserved EF Persistent atrial fibrillation status post pacemaker BPH Hyperlipidemia Diabetes mellitus type 2 Diabetic peripheral neuropathy COPD without exacerbation Peripheral arterial disease Plan: 1. Continue patient on IV ceftriaxone. Atypical screen negative, azithromycin can be discontinued. 2. Chest x-ray from today showing moderate right-sided pleural effusion, small left pleural effusion, pulmonary edema and small right apical pneumothorax. Cardiothoracic surgery following, no plan for intervention as of now. Discussed with cardiothoracic surgery [employer] C[employer]IER. Will give one-time dose of IV Lasix 20 mg x 1 and resume his home Lasix 40 mg daily. Repeat chest x-ray from tomorrow morning. If no improvement, proceed with repeat thoracentesis. May require IR guided chest replacement. 3. Continue aerosol breathing treatment. Stable on baseline 3 L of oxygen. 4. Troponin remained flat. Pending EKG. Denies any chest pain. 5. Regarding persistent atrial patient s/p pacemaker last week. Tachycardic, will increase metoprolol dose to 25 mg twice daily. Apixaban is on hold. Will start heparin by weight in case if he requires intervention or chest tube placement. 6. Glycemic control. 7. Continue medications as appropriate. Clopidogrel on hold in case patient requires procedure. Heparin by weight been started. Will add aspirin for now. Plan for discharge back to custodial facility once medically stable. Note was dictated using voice recognition software so, please excuse for any typographical errors. Level of Care Indication SD monitor (other: specify in note) DVT Prophylaxis Full anticoagulation Maintenance IVF Indication NA / No maintenance IVF Indwelling Urinary Catheter Indication NA No indwelling catheter Anticipated Timeline of Discharge _TBD Anticipated DC Disposition SNF Digitally Signed by GLORIA DAVIS MD on 04/14/2025 04:44 PM [id number] Note. MICRO - Microbiology PROCEDURE: Legionella Urine Ag [...] Locations *1: This test was performed at: [facility], [address] [place] [address], [id number] , [facility]08-26-2025 Note. MICRO - Microbiology PROCEDURE: Streptococcus Pneumoniae Urine [...] Locations *1: This test was performed at: [facility], [address] [place] [address], [facility] , [facility]08-26-2025 Note* Exam Date Time Procedure Performing Provider Status 04/14/25 6:55 AM XR Chest 1 View LEVI MARCIAL MD; Auth (Verified) [id number] ORIGINAL EXAMINATION: ONE XRAY VIEW OF THE [...] Small right apical pneumothorax. Interpreted by: Levi Marcial MD Preliminary Report By: Levi Marcial MD Electronically signed By Levi Marcial MD Dictated Date: 04/14/2025 6:58:31 AM Prelim Date: 04/14/2025 7:00:29 AM Sign Date: 04/14/2025 7:00:29 AM Ordering Provider: COLLEEN DOE [id number] History and physical note [facility] Hospitalist History and Physical Date of Admission: patient is being admitted on April 13, 2025 Chief complaint: pneumothorax History of present illness: History was taken from talking with the emergency room physician at [facility] as well as talking with the patient. Patient has a past medical history of peripheral arterial disease, persistent atrial fibrillation status post pacemaker placement, former smoker, BPH, CKD stage III, hyperlipidemia, diabetes mellitustype II, peripheral neuropathy, chronic anemia, hypertension, coronary artery disease status post CABG, diastolic heart failure, COPD, chronic hypoxic respiratory failure on 3 L nasal cannula. On of this past week the patient had a pacemaker placed at [facility]. On Sunday of this past week the patient was found to have pleural effusion and had a thoracentesis. The patient was admitted to rehab at [facility]. Yesterday the patient had episodes of hypoxia and tachycardia and therefore they did a chest x-ray that was concerning for possible pneumothorax. Therefore the patient was sent to the emergency room for further evaluation. Since presenting to the emergency room the patient has been afebrile, hemodynamically stable, 92% on 2 L nasal cannula. The following labs and imaging were personally reviewed WBC 13.7 hemoglobin 9.1 platelet count 193 sodium 138 potassium 4.3 creatinine 1.4 which is around his baseline high-sensitivity troponin [address] chest without contrast showed right loculated [place] pneumothorax of estimated 15% of the right thoracic volume occupied by air. Patches of dense consolidating right pneumonia. Sizable peripheral blebs and honeycombing in the left mid and base. Prior to transfer they did discuss the case with cardiothoracic surgery distribution collection operator and the patient wasgiven vancomycin and Zosyn. Past medical history: as mentioned in the HPI Family history: hypertension Social history: Denies smoking cigarettes or alcohol consumption Medications: medications were not verified by pharmacy at the time of this dictation Allergies: No qualifying data available. Review of systems: See HPI for pertinent positives and negatives. All other review of systems have been reviewed and they are negative. Vitals Signs(Last 24 hrs)__Last Charted Minimum Maximum WBF630(APR 13 05:28)135(APR 13:28)135(APR 13:28) DBP78(APR 13:28)78(APR 13:28)78(APR 13:) Physical examination: HEENT: No Pallor, No Icterus Cardiac: tachycardia, No murmur Lungs: diffuse crackles in respiratory stress Abdomen: Soft Non tender Musculoskeletal: No joint pains or swelling Extremities: No edema, good pulses Neurological: Alert, no deficits Skin: No rash, no nodules Labs: as mentioned in the HPI. Assessment and plan: Patient presents from [facility] on April 13, 2025 due to having loculated pleural effusion with a pneumothorax. Sepsis present on admission. Patient does require two midnight hospital stay due to having sepsis with respiratory failure with a WBC 13.7 with tachycardia with pneumonia. Patient will be on step down with monitor. Will start the patient on ceftriaxone and azithromycin. Will get blood cultures, Mycoplasma antibody, streptococcal and Legionella urinary antigens. Patient cannot be treated outpatient due to respiratory failure. Pneumonia with loculated pleural effusion. Treatment as mentioned above. Will consult cardiothoracic surgery. Post procedural right sided loculated hydropneumothorax. Patient had a pacemaker placed last week and also had a thoracentesis several days ago. NPO with IV fluids in case of procedure. Will consult cardiothoracic surgery. Chronic anemia secondary chronic kidney disease. Stable CKD stage III. Stable Elevated troponin secondary to hypoxic respiratory failure. Will get a repeat troponin. Will get anEKG. Peripheral arterial disease. Continue home medications Chronic persistent atrial fibrillation status post pacemaker placement on of this past week. Will hold his Eliquis in case of procedure. If there is no plan for procedure then will resume Eliquis or consider heparin by weight. As needed Lopressor. Acute on chronic hypoxic respiratory failure. Patient is on home 3 L nasal cannula. Respiratory failure is secondary to pneumothorax and pneumonia. BPH. Continue home medications Hyperlipidemia. Continue statin Diabetes mellitus type II. Continue home medications. Sliding scale insulin. Diabetic peripheral neuropathy. Continue medications Coronary artery disease status post CABG. Will hold antiplatelet therapy in the acute setting in case of procedure. If there is no plan for procedure then will resume antiplatelet therapy. Chronic diastolic heart failure not in exacerbation. Chronic COPD not in exacerbation Prophylaxis SCD in case of surgical intervention Code status full code. This was discussed with the patient. Digitally Signed by DAVID STERLING MD on 04/13/2025 05:49 AM [id number] Respiratory therapy Hospital Progress note Respiratory Therapy Evaluation Entered On: 04/13/2025 15:23 EDT Performed On: 04/13/2025 15:22 EDT by Summer Hankins Student Respiratory Therapy Evaluation Pulmonary Status : Chronic pulmonary disease Cough (RT) : Weak, non-productive Respiratory Therapy Evaluation Score : 9 RT Evaluation Steps : Chart review completed, Assessment completed: RR, HR, Auscultation, Cough, Patient Interview completed Respiratory Evaluation Triage Score : (6-10) Freq: TIDRT & Albuterol Q2hRT prn RT Assessment [Frequency/Schedule] : Therapeutic interchange, discontinue future evaluations Summer Hankins Student - 04/13/2025 16:09 EDT Surgical Status : No surgery Respiratory Pattern (RT) : RR 10-20 BPM, Regular pattern Breath Sounds (RT) : Diminished due to poor inspiratory effort Level of Activity : Ambulatory with assistance Mental Status : Alert, oriented and cooperative Summer Hankins Student - 04/13/2025 16:05 EDT Chest X-Ray : Infiltrates or atelectasis in one lobe Summer Hankins Student - 04/13/2025 15:22 EDT Digitally Signed by Summer Hankins Student on 04/13/2025 04:09 PM [id number] Cardiothoracic surgery Consult note Date of Service 04/13/2025 Reason for Consultation Pneumothorax Referring Physician Dr. Sterling History of Present Illness This is a split/shared visit with Dr. Wagoner. Is an 80-year-old male with past medical history of PAD, atrial fibrillation status post permanent pacemaker insertion on 04/09/2025 on Eliquis, former smoker, BPH, chronic kidney disease stage III, hyperlipidemia, diabetes, peripheral neuropathy, chronic anemia, hypertension, CAD status post CABG (6 years ago), diastolic heart failure, and COPD (wears 3 L nasal cannula at home). He underwent insertion of a left sided permanent pacemaker on , 04/09/2025 at [facility]. The following day, he had a chest x-ray completed revealing a right pleural effusion and underwent a thoracentesis(amount of volume removed unknown). He was discharged to [place] rehab facility same day. While at rehab facility, he was noted to be hypoxic and tachycardic and a chest x-ray was completed showing aright pneumothorax. He was taken to [place] emergency room where he was further evaluated with a CTof the chest without contrast which revealed a right loculated hydropneumothorax of an estimated 15% of the right thoracic volume occupied by air, apical and some subpulmonic patches of dense consolidating right pneumonia, sizable peripheral blebs and honeycombing in the left mid zone and base. He was started on antibiotic therapy, placed on 100% nonrebreather mask, and transferred to [facility] for further evaluation. Cardiothoracic surgery has been consulted for evaluation of right pneumothorax. Last dose of Eliquis and Plavix appear to have been taken on 04/12/2025. Review of Systems Constitutional: Denies fever, chills, weight loss, weight gain HEENT: Wears glasses and has upper and lower dentures Respiratory: Currently denies any shortness of breath, cough, wheezing CV: Denies chest pain, syncope, PND Vascular: Denies claudication, varicose veins, nonhealing ulcers GI: Denies nausea, vomiting, constipation, diarrhea : Denies dysuria or hematuria Neuro: Anastasi neuropathy in bilateral lower extremities, positive weakness; [place] any memory loss,vertigo Endo: Denies heat/cold tolerance, hair loss, polyuria Wilmer/oncology: Denies bleeding, bruising, lymphadenopathy Muscular/skeletal: Denies arthralgia, back pain, leg cramps Psych: Denies anxiety, depression, suicidal ideations Physical Exam Vitals and Measurements T: 36.6 C (Oral) HR: 108 RR: 18 BP: 121/72 SpO2: 100% HT: 167.6 cm WT: 71.6 kg BMI: 25.49 Weight Dosing Weight: 71.6 kg (04/13/25) Additional: Alert, oriented x 4, appropriate HEENT: Normocephalic, atraumatic Lungs:Unlabored respirations, lung sounds clear bilaterally, SpO2 100% on 15 L nonrebreather Heart: One-to-one V pacing, S1-S2, no murmur or rub, heart rate 106-108; left anterior chest permanent pacer site dressed with Aquacel dressing and intact Abdo: Soft, nontender, bowel sounds present Extremities: Well-perfused, pedal pulses +2 bilaterally, no lower leg edema Integumentary: Intact, no rashes Neuro: Cranial nerves II through VIII intact Lab Results 04/13 07:20 WBC: 11.6 H Hgb: 9.4 L Hct: 29.7 L Platelet: 201 Neutrophil %: 90.6 H Protime: 14.5 H PT International Ratio: 1.3 Glucose Level: 192 H Sodium Level: 143 Potassium Level: 4.5 BUN: 49.0 H Creatinine Lvl (s): 1.47 H Imaging Results and Diagnostics XR Chest 1 View Result Date: April 13, 2025 Verified By: MÓNICA ZALDIVAR DO CLINICAL STATEMENT: IMPRESSION: Right-sided hydropneumothorax is likely not significantly changed with approximately 6 mm of apical pleural separation. No significant change in right perihilar/suprahilar consolidation concerning for pneumonia. Stable small left pleural effusion with adjacent hazy airspace disease. Assessment/Plan 1. Right Hydropneumothorax CT of the chest completed at [facility] on 04/12/2025 showing right loculated hydropneumothorax with an estimated 15% of right thoracic volume occupied by air Patient has been on 100% nonrebreather Currently denies any shortness of breath or chest pain Stat chest x-ray completed this afternoon showing Right-sided hydropneumothorax not significantly changed with approximately 6 mm apical pleural separation No surgical intervention planned at this time after discussion with Dr. Wagoner via phone. Please see Dr. Wagoner's addendum to follow. 2. Pneumonia CT of the chest completed at [facility] on 04/12/2025 showed apical and some subpulmonic patches of dense consolidating right pneumonia WBC 11.6 Patient has been afebrile Currently on azithromycin and Rocephin 3. Elevated troponin 4. Atrial fibrillation 5. Cardiac pacemaker in situ 6. PAD (peripheral artery disease) 7. BPH (benign prostatic hyperplasia) 8. CKD (chronic kidney disease) 9. HLD (hyperlipidemia) 10. Diabetes 11. Peripheral neuropathy 12. Chronic anemia 13. HTN (hypertension) 14. CAD in [place] artery s/p CABG 15. Diastolic heart failure 16. COPD with hypoxia 48 minutes of independent KATIA time spent obtaining past medical history from EMR, conducting [facility] to request CT of the chest imaging, completing [id number] visit with patient at bedside, obtaining physical exam, and dictating details of today's consultation. Problem List/Past Medical History Ongoing Atrial fibrillation BPH (benign prostatic hyperplasia) CAD in [place] artery Cardiac pacemaker in situ Chronic anemia CKD (chronic kidney disease) COPD with hypoxia Diabetes Diastolic heart failure Elevated troponin HLD (hyperlipidemia) HTN (hypertension) Hydropneumothorax PAD (peripheral artery disease) Peripheral neuropathy Pneumonia Procedure/Surgical History No qualifying data available. Medications Inpatient Dextrose 50% IV Push, 25 gram(s)= 50 mL, IV Push, AsDirected, PRN Dilaudid, 1 mg= 1 mL, IV Push, q3h, PRN DuoNeb, 3 mL, Inhalation, q4hRT, PRN guaiFENesin, 200 mg= 10 mL, Oral, q4h, PRN HumaLOG 100 units/mL subcutaneous solution, Give 0-10 units/dose, Subcutaneous, TIDAC Lopressor IV, 5 mg= 5 mL, IV Push, q3h, PRN melatonin, 3 mg= 1 tab(s), Oral, qHS, PRN Miralax Powder Packet, 17 gram(s)= 15 mL, Oral, qDay, PRN NS 1,000 mL, 1000 mL, Intravenous Percocet 325/5, 1 tab(s), Oral, q4h, PRN prochlorperazine, 5 mg= 1 mL, IV Push, q6h, PRN Rocephin, 2 gram(s)= 20 mL, IV Push (INT), qDay Tylenol, 650 mg= 2 tab(s), Oral, q4h, PRN Tylenol, 650 mg= 2 tab(s), Oral, q4h, PRN Zithromax IV Zofran, 4 mg= 2 mL, IV Push, q4h, PRN Home albuterol MDI (90 mcg/inh) CFC free inhalation aerosol, 2 puff(s), Inhalation, q4h, PRN Anoro Ellipta 62.5 mcg-25 mcg/inh inhalation powder, 1 puff(s), Inhalation, qDay cefdinir 300 mg oral capsule, 300 mg= 1 cap(s), Oral, q12h clopidogrel 75 mg oral tablet, 75 mg= 1 tab(s), Oral, Daily Colace 100 mg oral capsule, 100 mg= 1 cap(s), Oral, qDay, PRN cranberry oral tablet, 500 mg, Oral, Daily Eliquis 5 mg oral tablet, 2.5 mg, Oral, BID guaiFENesin, 1200 mg, Oral, q12h insulin glargine, 30 unit(s), Subcutaneous, qHS Januvia 50 mg oral tablet, 50 mg= 1 tab(s), Oral, qDay Lasix 40 mg oral tablet, 40 mg= 1 tab(s), Oral, qDay metoprolol succinate 25 mg oral TABLET extended release, 12.5 mg= 0.5 tab(s), Oral, BID Multi-Braden, 1 tab, Oral, Daily pravastatin, 20 mg, Oral, qDay predniSONE, 20 mg, Oral, BID tamsulosin 0.4 mg oral capsule, 0.4 mg= 1 cap(s), Oral, qDay Allergies ibuprofen unknown Immunizations No qualifying data available. This note was generated using a voice recognition system. As a result, errors are possible and common, including incorrect words, spellings, grammar, gender, phrases, and punctuation that may be out of context or that were missed in checking this note before saving. Reasonable effort is made to correct such errors, but with demands of normal work flow, many are missed. Digitally Signed by COLLEEN DOE on 04/13/2025 03:08 PM [id number] Note* Exam Date Time Procedure Performing Provider Status 04/13/25 2:42 PM XR Chest 1 View MÓNICA ZALDIVAR DO; [facility] (Verified) [id number] ORIGINAL EXAMINATION: ONE XRAY VIEW OF THE [...] with adjacent hazy airspace disease. Interpreted by: Mónica Zaldivar Preliminary Report By: Mónica Zaldivar Electronically signed By Mónica Zaldivar Dictated Date: 04/13/2025 2:55:34 PM Prelim Date: 04/13/2025 2:58:50 PM Sign Date: 04/13/2025 2:58:50 PM Ordering Provider: COLLEEN DOE [id number] Evaluation + Plan noteExtracted from: Title:Clinical Document Author:DAVID STERLING MD Date:04/13/25 [facility] Hospitalist History and Physical Date of Admission: patient is being admitted on April 13, 2025 Chief complaint: pneumothorax History of present illness: History was taken from talking with the emergency room physician at [facility] as well as talking with the patient. Patient has a past medical history of peripheral arterial disease, persistent atrial fibrillation status post pacemaker placement, former smoker, BPH, CKD stage III, hyperlipidemia, diabetes mellitus type II, peripheral neuropathy, chronic anemia, hypertension, coronary artery disease status post CABG, diastolic heart failure, COPD, chronic hypoxic respiratory failure on 3 L nasal cannula. On of this past week the patient had a pacemaker placed at [facility]. On Sunday of this past week the patient was found to have pleural effusion and had a thoracentesis. The patient was admitted to rehab at [facility]. Yesterday the patient had episodes of hypoxia and tachycardia and therefore they did a chest x-ray that was concerning for possible pneumothorax. Therefore the patient was sent to the emergency room for further evaluation. Since presenting to the emergency room the patient has been afebrile, hemodynamically stable, 92% on 2 L nasal cannula. The following labs and imaging were personally reviewed WBC 13.7 hemoglobin 9.1 platelet count 193 sodium 138 potassium 4.3 creatinine 1.4 which is around his baseline high-sensitivity troponin [address] chest without contrast showed right loculated [place] pneumothorax of estimated 15% of the right thoracic volume occupied by air. Patches of dense consolidating right pneumonia. Sizable peripheral blebs and honeycombing in the left mid and base. Prior to transfer they did discuss the case with cardiothoracic surgery distribution collection operator and the patient was given vancomycin and Zosyn. Past medical history: as mentioned in the HPI Family history: hypertension Social history: Denies smoking cigarettes or alcohol consumption Medications: medications were not verified by pharmacy at the time of this dictation Allergies: No qualifying data available. Review of systems: See HPI for pertinent positives and negatives. All other review of systems have been reviewed and they are negative. Vitals Signs(Last 24 hrs)__Last Charted Minimum Maximum [id number](APR 13 05:28)135(APR 13:28)135(APR 13:) DBP78(APR 13:)78(APR 13:28)78(APR 13:) Physical examination: HEENT: No Pallor, No Icterus Cardiac: tachycardia, No murmur Lungs: diffuse crackles in respiratory stress Abdomen: Soft Non tender Musculoskeletal: No joint pains or swelling Extremities: No edema, good pulses Neurological: Alert, no deficits Skin: No rash, no nodules Labs: as mentioned in the HPI. Assessment and plan: Patient presents from [facility] on April 13, 2025 due to having loculated pleural effusion with a pneumothorax. Sepsis present on admission. Patient does require two midnight hospital stay due to having sepsis with respiratory failure with a WBC 13.7 with tachycardia with pneumonia. Patient will be on step down with monitor. Will start the patient on ceftriaxone and azithromycin. Will get blood cultures, Mycoplasma antibody, streptococcal and Legionella urinary antigens. Patient cannot be treated outpatient due to respiratory failure. Pneumonia with loculated pleural effusion. Treatment as mentioned above. Will consult cardiothoracic surgery. Post procedural right sided loculated hydropneumothorax. Patient had a pacemaker placed last week and also had a thoracentesis several days ago. NPO with IV fluids in case of procedure. Will consult cardiothoracic surgery. Chronic anemia secondary chronic kidney disease. Stable CKD stage III. Stable Elevated troponin secondary to hypoxic respiratory failure. Will get a repeat troponin. Will get an EKG. Peripheral arterial disease. Continue home medications Chronic persistent atrial fibrillation status post pacemaker placement on of this past week. Will hold his Eliquis in case of procedure. If there is no plan for procedure then will resume Eliquis or consider heparin by weight. As needed Lopressor. Acute on chronic hypoxic respiratory failure. Patient is on home 3 L nasal cannula. Respiratory failure is secondary to pneumothorax and pneumonia. BPH. Continue home medications Hyperlipidemia. Continue statin Diabetes mellitus type II. Continue home medications. Sliding scale insulin. Diabetic peripheral neuropathy. Continue medications Coronary artery disease status post CABG. Will hold antiplatelet therapy in the acute setting in case of procedure. If there is no plan for procedure then will resume antiplatelet therapy. Chronic diastolic heart failure not in exacerbation. Chronic COPD not in exacerbation Prophylaxis SCD in case of surgical intervention Code status full code. This was discussed with the patient. Addendum by DAVID STERLING MD on April 13, 2025 6:40 EDT medications will need reconciled once ey are verified Addendum by GLORIA DAVIS MD on April 13, 2025 22:53 EDT Patient was seen and examined again by silvana pruitt later today. Denies any change in his breathing. Stable on his baseline 3 times rectal oxygen. Denies any chest pain, palpitations.. Family present in the room. On exam, not in acute respiratory distress, but respiration nonlabored, diminished air entry at the bases, no JVD, no lower extremity edema, slightly tachycardic, AO x 3, grossly nonfocal -- Repeat chest x-ray Showed persistent right-sided hydropneumothorax unchanged. Discussed with cardiothoracic surgery team, plan to repeat chest x-ray tomorrow morning. Anticoagulation and antiplatelet therapy on hold until final recommendations from cardiothoracic surgery. Continue IV ceftriaxone and azithromycin and follow-up with atypical screen. Trend troponin. Denies any active chest pain. Pending EKG. Elevated proBNP that could be in the setting of DARIUSZ/CKD. No recent baseline creatinine to compare. Clinically no evidence of volume overload. Monitor closely. Aerosol breathing treatment. Resume home metoprolol. Discussed plan of care with patient and family at bedside. [facility] 08-25-2025 Note Reason for Consultation Admission From: Other: Hospital transfer Consult Skin Team re: Pressure Staging - Ordered -- 04/13/25 8:34:39 EDT Skin Team Findings Vitals and Measurements T: 36.6 C (Oral) HR: 107 RR: 18 BP: 138/85 SpO2: 99% HT: 167.6 cm WT: 71.6 kg BMI: 25.49 Pressure Area Details ------Incision/Wound------ Chest Left Anterior - Incision, Wound Dressing Assessment: Dry, Intact, Shadowing noted Chest Left Anterior - Incision, Wound Dressing/Activity: Assessed Chest Left Anterior - Incision, Wound Dressing: Hydrocolloid (Duoderm) Chest Left Anterior - Skin Abnormality Type: Surgical incision Chest Left Anterior - Wound Exudate Amount: None Knee Right Anterior - Incision, Wound Dressing Assessment: Clean, Dry, Intact Knee Right Anterior - Incision, Wound Dressing/Activity: Reinforced Knee Right Anterior - Incision, Wound Dressing: Foam Knee Right Anterior - Incision, Wound Surrounding Tissue: Dry, Fragile Knee Right Anterior - Non-Pressure Ulcer Type: Undiagnosed ulcer Knee Right Anterior - Skin Abnormality Color: Yellow Knee Right Anterior - Skin Abnormality Pattern: Depressed Knee Right Anterior - Skin Abnormality Type: Non-pressure ulcer Knee Right Anterior - Wound Bed Description: Necrotic tissue, slough Knee Right Anterior - Wound Edge: Unattached to wound bed Knee Right Anterior - Wound Exudate Amount: Scant Knee Right Anterior - Wound Exudate Type: Serous Knee Right Anterior - Wound Percent Necrotic Tissue Slough: 100 % Toe, fourth Right - Incision, Wound Dressing: Open to Air Toe, fourth Right - Incision, Wound Surrounding Tissue: Normal skin tone Toe, fourth Right - Non-Pressure Ulcer Type: Diabetic ulcer Toe, fourth Right - Skin Abnormality Color: Black Toe, fourth Right - Skin Abnormality Pattern: Scabbed Toe, fourth Right - Skin Abnormality Type: Non-pressure ulcer Toe, fourth Right - Wound Edge: Attached to wound bed Toe, fourth Right - Wound Exudate Amount: None Toe, second Right - Incision, Wound Dressing: Open to Air Toe, second Right - Incision, Wound Surrounding Tissue: Normal skin tone Toe, second Right - Non-Pressure Ulcer Type: Diabetic ulcer Toe, second Right - Skin Abnormality Color: Black Toe, second Right - Skin Abnormality Pattern: Scabbed Toe, second Right - Skin Abnormality Type: Non-pressure ulcer Toe, second Right - Wound Edge: Attached to wound bed Toe, second Right - Wound Exudate Amount: None ------Incision/Wound Measurements------ Knee Right Anterior - Incision, Wound Depth: 0.2 cm Knee Right Anterior - Incision, Wound Length: 3 cm Knee Right Anterior - Incision, Wound Width: 4.1 cm Assessments and Recommendations ------Assessments------ Current Skin/Wound Interventions: Hospital bed, Turn and reposition every 2 hours ------Recommendations------ Recommended Skin/Wound Interventions: Seat cushion, Barrier cream, Turn and reposition every 2 hours, Proposed orders sent to physician, Other: Medihoney/adaptic/foam to right knee. Betadine to [id number], and 4th toes. Eucerin cream to BLE. Education Individuals Taught: Patient Learning Readiness: Willing to learn Barriers to Learning: Acuity of illness Teaching Method: Explanation Digitally Signed by Carol Galvin RN on 04/13/2025 01:26 PM [id number] Note. MICRO - Microbiology PROCEDURE: Blood Culture (bacterial) [*1] SOURCE: Blood BODY SITE: COLLECTED DATE/TIME: 04/13/2025 07:20 EDT RECEIVED DATE/TIME: 04/13/2025 08:00 EDT START DATE/TIME: 04/13/2025 08:00 EDT FREE TEXT SOURCE: peds bottle PRELIMINARY REPORTS Preliminary Report [] Verified Date/Time/Personnel: 04/13/2025 08:59 EDT Culture has been received in lab and is no growth to date. Routine cultures are held for 5 days. Performing Locations *1: This test was performed at: [address] [id number] Note. MICRO - Microbiology PROCEDURE: Blood Culture (bacterial) [*1] SOURCE: Blood BODY SITE: COLLECTED DATE/TIME: 04/13/2025 07:20 EDT RECEIVED DATE/TIME: 04/13/2025 08:01 EDT START DATE/TIME: 04/13/2025 08:01 EDT FREE TEXT SOURCE: peds bottle PRELIMINARY REPORTS Preliminary Report [] Verified Date/Time/Personnel: 04/13/2025 08:59 EDT Culture has been received in lab and is no growth to date. Routine cultures are held for 5 days. Performing Locations *1: This test was performed at: [address], [address] [place], [place] [id number] [facility]08-25-2025 History and physical note [facility] Hospitalist History and Physical Date of Admission: patient is being admitted on April 13, 2025 Chief complaint: pneumothorax History of present illness: History was taken from talking with the emergency room physician at [facility] as well as talking with the patient. Patient has a past medical history of peripheral arterial disease, persistent atrial fibrillation status post pacemaker placement, former smoker, BPH, CKD stage III, hyperlipidemia, diabetes mellitustype II, peripheral neuropathy, chronic anemia, hypertension, coronary artery disease status post CABG, diastolic heart failure, COPD, chronic hypoxic respiratory failure on 3 L nasal cannula. On of this past week the patient had a pacemaker placed at [facility]. On Sunday of this past week the patient was found to have pleural effusion and had a thoracentesis. The patient was admitted to rehab at [facility]. Yesterday the patient had episodes of hypoxia and tachycardia and therefore they did a chest x-ray that was concerning for possible pneumothorax. Therefore the patient was sent to the emergency room for further evaluation. Since presenting to the emergency room the patient has been afebrile, hemodynamically stable, 92% on 2 L nasal cannula. The following labs and imaging were personally reviewed WBC 13.7 hemoglobin 9.1 platelet count 193 sodium 138 potassium 4.3 creatinine 1.4 which is around his baseline high-sensitivity troponin [address] chest without contrast showed right loculated [place] pneumothorax of estimated 15% of the right thoracic volume occupied by air. Patches of dense consolidating right pneumonia. Sizable peripheral blebs and honeycombing in the left mid and base. Prior to transfer they did discuss the case with cardiothoracic surgery distribution collection operator and the patient wasgiven vancomycin and Zosyn. Past medical history: as mentioned in the HPI Family history: hypertension Social history: Denies smoking cigarettes or alcohol consumption Medications: medications were not verified by pharmacy at the time of this dictation Allergies: No qualifying data available. Review of systems: See HPI for pertinent positives and negatives. All other review of systems have been reviewed and they are negative. Vitals Signs(Last 24 hrs)__Last Charted Minimum Maximum FSL824(APR 13 05:28)135(APR 13 05:28)135(APR 13 05:28) DBP78(APR 13:28)78(APR 13 05:28)78(APR 13 05:28) Physical examination: HEENT: No Pallor, No Icterus Cardiac: tachycardia, No murmur Lungs: diffuse crackles in respiratory stress Abdomen: Soft Non tender Musculoskeletal: No joint pains or swelling Extremities: No edema, good pulses Neurological: Alert, no deficits Skin: No rash, no nodules Labs: as mentioned in the HPI. Assessment and plan: Patient presents from [facility] on April 13, 2025 due to having loculated pleural effusion with a pneumothorax. Sepsis present on admission. Patient does require two midnight hospital stay due to having sepsis with respiratory failure with a WBC 13.7 with tachycardia with pneumonia. Patient will be on step down with monitor. Will start the patient on ceftriaxone and azithromycin. Will get blood cultures, Mycoplasma antibody, streptococcal and Legionella urinary antigens. Patient cannot be treated outpatient due to respiratory failure. Pneumonia with loculated pleural effusion. Treatment as mentioned above. Will consult cardiothoracic surgery. Post procedural right sided loculated hydropneumothorax. Patient had a pacemaker placed last week and also had a thoracentesis several days ago. NPO with IV fluids in case of procedure. Will consult cardiothoracic surgery. Chronic anemia secondary chronic kidney disease. Stable CKD stage III. Stable Elevated troponin secondary to hypoxic respiratory failure. Will get a repeat troponin. Will get anEKG. Peripheral arterial disease. Continue home medications Chronic persistent atrial fibrillation status post pacemaker placement on of this past week. Will hold his Eliquis in case of procedure. If there is no plan for procedure then will resume Eliquis or consider heparin by weight. As needed Lopressor. Acute on chronic hypoxic respiratory failure. Patient is on home 3 L nasal cannula. Respiratory failure is secondary to pneumothorax and pneumonia. BPH. Continue home medications Hyperlipidemia. Continue statin Diabetes mellitus type II. Continue home medications. Sliding scale insulin. Diabetic peripheral neuropathy. Continue medications Coronary artery disease status post CABG. Will hold antiplatelet therapy in the acute setting in case of procedure. If there is no plan for procedure then will resume antiplatelet therapy. Chronic diastolic heart failure not in exacerbation. Chronic COPD not in exacerbation Prophylaxis SCD in case of surgical intervention Code status full code. This was discussed with the patient. Digitally Signed by DAVID STERLING MD on 04/13/2025 05:49 AM [id number] History and physical note [facility] Hospitalist History and Physical Date of Admission: patient is being admitted on April 13, 2025 Chief complaint: pneumothorax History of present illness: History was taken from talking with the emergency room physician at [facility] as well as talking with the patient. Patient has a past medical history of peripheral arterial disease, persistent atrial fibrillation status post pacemaker placement, former smoker, BPH, CKD stage III, hyperlipidemia, diabetes mellitustype II, peripheral neuropathy, chronic anemia, hypertension, coronary artery disease status post CABG, diastolic heart failure, COPD, chronic hypoxic respiratory failure on 3 L nasal cannula. On of this past week the patient had a pacemaker placed at [facility]. On Sunday of this past week the patient was found to have pleural effusion and had a thoracentesis. The patient was admitted to rehab at [facility]. Yesterday the patient had episodes of hypoxia and tachycardia and therefore they did a chest x-ray that was concerning for possible pneumothorax. Therefore the patient was sent to the emergency room for further evaluation. Since presenting to the emergency room the patient has been afebrile, hemodynamically stable, 92% on 2 L nasal cannula. The following labs and imaging were personally reviewed WBC 13.7 hemoglobin 9.1 platelet count 193 sodium 138 potassium 4.3 creatinine 1.4 which is around his baseline high-sensitivity troponin [address] chest without contrast showed right loculated [place] pneumothorax of estimated 15% of the right thoracic volume occupied by air. Patches of dense consolidating right pneumonia. Sizable peripheral blebs and honeycombing in the left mid and base. Prior to transfer they did discuss the case with cardiothoracic surgery distribution collection operator and the patient wasgiven vancomycin and Zosyn. Past medical history: as mentioned in the HPI Family history: hypertension Social history: Denies smoking cigarettes or alcohol consumption Medications: medications were not verified by pharmacy at the time of this dictation Allergies: No qualifying data available. Review of systems: See HPI for pertinent positives and negatives. All other review of systems have been reviewed and they are negative. Vitals Signs(Last 24 hrs)__Last Charted Minimum Maximum NYW197(APR 13 05:28)135(APR 13 05:28)135(APR 13 05:28) DBP78(APR 13 05:28)78(APR 13 05:28)78(APR 13 05:28) Physical examination: HEENT: No Pallor, No Icterus Cardiac: tachycardia, No murmur Lungs: diffuse crackles in respiratory stress Abdomen: Soft Non tender Musculoskeletal: No joint pains or swelling Extremities: No edema, good pulses Neurological: Alert, no deficits Skin: No rash, no nodules Labs: as mentioned in the HPI. Assessment and plan: Patient presents from [facility] on April 13, 2025 due to having loculated pleural effusion with a pneumothorax. Sepsis present on admission. Patient does require two midnight hospital stay due to having sepsis with respiratory failure with a WBC 13.7 with tachycardia with pneumonia. Patient will be on step down with monitor. Will start the patient on ceftriaxone and azithromycin. Will get blood cultures, Mycoplasma antibody, streptococcal and Legionella urinary antigens. Patient cannot be treated outpatient due to respiratory failure. Pneumonia with loculated pleural effusion. Treatment as mentioned above. Will consult cardiothoracic surgery. Post procedural right sided loculated hydropneumothorax. Patient had a pacemaker placed last week and also had a thoracentesis several days ago. NPO with IV fluids in case of procedure. Will consult cardiothoracic surgery. Chronic anemia secondary chronic kidney disease. Stable CKD stage III. Stable Elevated troponin secondary to hypoxic respiratory failure. Will get a repeat troponin. Will get anEKG. Peripheral arterial disease. Continue home medications Chronic persistent atrial fibrillation status post pacemaker placement on of this past week. Will hold his Eliquis in case of procedure. If there is no plan for procedure then will resume Eliquis or consider heparin by weight. As needed Lopressor. Acute on chronic hypoxic respiratory failure. Patient is on home 3 L nasal cannula. Respiratory failure is secondary to pneumothorax and pneumonia. BPH. Continue home medications Hyperlipidemia. Continue statin Diabetes mellitus type II. Continue home medications. Sliding scale insulin. Diabetic peripheral neuropathy. Continue medications Coronary artery disease status post CABG. Will hold antiplatelet therapy in the acute setting in case of procedure. If there is no plan for procedure then will resume antiplatelet therapy. Chronic diastolic heart failure not in exacerbation. Chronic COPD not in exacerbation Prophylaxis SCD in case of surgical intervention Code status full code. This was discussed with the patient. Digitally Signed by DAVID STERLING MD on 04/13/2025 05:49 AM [id number] Discharge summary Author Daniel Brownlee [facility] Note Date/Time April 13, 2025 12 :09am [facility] Medical Records Department [address] [place] [address] Emergency Department Summary 04/12/25 MR#: [id number] Acct: [id number] Name: PEDRO HILLMAN Rep #:[id number] : 1945 80 From: Daniel Brownlee DO PCP: Dr. Tonio Fajardo, Status:REG ER Location: ED HPI History of Present Illness Chief Complaint: Shortness of Breath Narrative Narrative: Patient is 80-year-old male with past medical history of peripheral arterial disease, atrial fibrillation on Eliquis, CAD, chronic kidney disease, type 2 diabetes, hypertension, GERD, CHF, type 2 diabetes, COPD chronically on 3 L nasal cannula who presented to the emergency department from upstairs from rehabwith the concern for pneumothorax which was seen on chest x-ray. Patient recently had a right thoracentesis on last Sunday also had a pacemaker inserted on of this past week as well. They noted that his heart rate was elevated despite increased metoprolol therefore they obtained a chest x-ray. Patient states that he has no complaints himself at this point in time. [facility] Medical History Presence of cardiac pacemaker Peripheral arterial disease Other persistent atrial fibrillation New onset atrial flutter COVID Wears hearing aid in both ears Former smoker Coronary artery disease Peripheral vascular occlusive disease BPH (benign prostatic hyperplasia) Chronic kidney disease, stage 3 Atherosclerosis of coronary artery of [place] heart without angina pectoris Hyperlipidemia Lower extremity [...] inh inhalation QDAY copd #60 ea 10/23/24 04/08/25 Rx 25 mcg/actuation powdr for inhalation (Anoro Ellipta) apixaban 5 mg tablet (Eliquis) 2.5 mg (1/2 x 5 mg) PO BID blood 03/09/25 Unknown Rx thinner 30 days #30 tabs tamsulosin 0.4 mg capsule 0.4 mg [...] 300 mg capsule 300 mg PO BID antibiotic #10 caps 04/08/25 Unknown Rx furosemide 40 mg tablet (Lasix) 40 mg PO DAILY diureti c #60 tabs 04/08/25 Unknown Rx guaifenesin 600 mg tablet, 1,200 mg (2 x 600 mg) PO BI D #20 04/08/25 Unknown Rx extended release 12 hr (Mucinex) tabs prednisone 20 mg tablet 20 mg PO BID steroid #10 tab s 04/08/25 Unknown Rx OXYGEN - Supplemental ([facility] 04/09/25 Unknown History INFORMATIONAL USE ONLY) Allergy/AdvReac Type Severity Reaction Status Date / [...] of aortocoronary bypass graft (~03/2013) Social History household members: none Smoking Status: Former smoker Tobacco: How many years used: 30 how long ago did patient quit smokin years ROS ROS ED ROS Narrative Constitutional: Denies any fevers, chills, headaches Eyes: Denies any changes in vision double vision blurry vision Cardiovascular: Denies chest pain or palpitations Respiratory: Denies coughing wheezing shortness of breath Abdomen: Denies abdominal pain nausea vomit diarrhea : Denies any urinary symptoms Neurological: Denies numbness, weakness, tingling Musculoskeletal: Denies back pain Skin: Denies any rashes or lesions EXAM Physical Exam Narrative Exam Narrative: General: Patient was lying in bed resting comfortably did not appear to be acutedistress Head: Atraumatic, normocephalic Eyes: PERRL bilaterally, EOMI bilateral, no conjunctival injection noted Neck: Soft, supple, trachea midline Cardiovascular: Patient tachycardic with a regular rhythm Respiratory: Clear to auscultation bilaterally Abdomen: Soft, nondistended, nontender to palpation Extremities: +5/5 strength noted in the bilateral lower extremities Neurological: Patient following commands knew that he was at [facility] the year is 2024 Skin: Warm, dry, intact no rashes or lesions noted Const Vital Signs: 04/12/25 18:05 04/12/25 18:09 04/12/25 19:46 Temperature 97.5 F L Temperature Source Oral Pulse Rate 110 H Respiratory Rate 25 H Respiratory Effort Normal Non-Labored Respiratory Depth Normal Respiratory Pattern Normal Blood Pressure 123/72 H Blood Pressure Mean 89 Pulse Ox 100 Oxygen Delivery Method Nasal Cannula Nasal Cannula Non-Rebreather Oxygen Flow Rate (L/min) 3 3 15 04/12/25 20:04 04/12/25 22:00 04/12/25 23:03 Temperature 97.8 F Temperature Source Pulse Rate 111 H 110 H 109 H Respiratory Rate 40 H 25 H 21 H Respiratory Effort Respiratory Depth Respiratory Pattern Blood Pressure 141/76 H 134/80 H 142/80 H Blood Pressure Mean 97 98 100 Pulse Ox 100 100 100 Oxygen Delivery Method Non-Rebreather Non-Rebreather Oxygen Flow Rate (L/min) 15 15 MDM MDM MDM Narrative Medical decision making narrative: Patient is a 80-year-old male who presented to the emergency department with a chief complaint of pneumothorax as found on chest x-ray upstairs. On the differential diagnosis includes but not limited to pneumothorax, CHF, pneumonia. Once the workup is obtained reviewed he will be reevaluated. Patient was placed on 15 L nonrebreather. Patient be given 1 L of fluid as he has a historyof CHF. Patient's CBC was reviewed which showed white blood count of 13,000, hemoglobin is 9.1, platelet count was noted be 193. Patient sodium normal 138, potassium was 4.3, creatinine 1.43. Patient troponin was 103 with a delta troponin of 98. Patient's EKG reviewed which showed sinus tachycardia with a rate of 111 bpm with NM interval of 86. Patient's proBNP elevated 7022. Patient CT chest was reviewed which showed a right loculated hydropneumothorax of an estimated 15% ofthe right thoracic volume occupied by air. Some is apical and some is subpulmonic. Patches of dense consolidation right pneumonia sizable peripheral blebs and honeycombing in the left mid zone and base. Patient was given vancomycin and Zosyn at 2216. Patient be given IV fluids. Patient at 10:55 PM remains normal to hypertensive therefore no vasopressors indicated. Will discuss case with hospitalist for admission. Discussed case with hospitalist Dr. Izquierdo she was recommending discussion with general surgery prior to admission. Discussed case with general surgeon Dr. Workman who is recommending transfer giventhe complex pneumothorax. Discussed case with [facility] physician Dr. Sterling who accept patient for transfer. Patient was notified as well as sons at bedside. All question concerns answered patient will be transferred once bed is available. Lab Data Labs: Laboratory Results - last 24 hr 04/12/25 04/12/25 19:45 22:00 WBC 13.7 H RBC 3.35 L Hgb 9.1 L Hct 29.6 L MCV 88.4 MCH 27.2 MCHC 30.7 L RDW Std Deviation 53.6 H RDW Coeff of Reggie 16.6 H Plt Count 193 MPV 9.9 Immature Gran % (Auto) 0.700 Neut % (Auto) 92.5 H Lymph % (Auto) 2.5 L [place] % (Auto) 4.2 Eos % (Auto) 0.0 Baso % (Auto) 0.1 Absolute Neuts (auto) 12.7 H Absolute Lymphs (auto) 0.34 L Nucleated RBC % 0 Sodium 138 Potassium 4.3 Chloride 93 L Carbon Dioxide 36.5 H Anion Gap 9 BUN 60 H Creatinine 1.43 H Estim Creat Clear Calc 37.18 L Est GFR (MDRD) Non-Af 50 L BUN/Creatinine Ratio 41.9 H Glucose 189 H Calcium 8.7 Troponin T High Sens 103 H* D Troponin T Hi Sens 2 Hr 98 H* NT pro BNP II 7022 H Radiography Diagnostic Testing: Clinical Impression(s) from Imaging Studies Chest CT 04/12/25 18:39 IMPRESSION: Coronary artery calcification (CAC) is advanced, severe Right loculated hydropneumothorax of an estimated 15% of the right thoracic volume occupied by air. Some is apical and some is subpulmonic Patches of dense consolidating right pneumonia. Sizable peripheral blebs and honeycombing in the left mid zone and base. [facility] Discharge Plan Triage Chief Complaint: Shortness of Breath ED Provider: Daniel Brownlee Dx/Rx/DC Orders Clinical Impression: Pneumothorax, right, History of COPD, Pneumonia, Heart failure Prescriptions: No Action multivitamin [Daily Multi-Vitamin] Tablet 1 [...] 100 unit/mL (3 mL) insulin pen subcut prednisone 20 mg tablet 20 mg PO BID Qty: 10 0RF cefdinir 300 mg capsule 300 mg PO BID Qty: 10 0RF guaifenesin [Mucinex] 600 mg tablet extended release 12hr 1,200 mg PO BID Qty: 20 0RF furosemide [Lasix] 40 mg tablet 40 mg PO DAILY Qty: 60 0RF (DME) OXYGEN - Supplemental ([facility] INFORMATIONAL USE ONLY) Gas See Rx Instructions .ROUTE Patient Comments: 2 lpm at rest, 3 lpm on exertion, 2 lpm at HS DME company: [employer] [facility] Rx Instructions: As directed metoprolol succinate 25 mg tablet extended release 24 hr 12.5 mg PO BID Qty: 90 3RF Primary Care Provider: Tonio Fajardo Referrals: Tonio Fajardo DO [Primary Care Provider] - Print Language: German Disposition Disposition: DC/Tx to Another Type of HCF What to do if you have Problems For any increased pain, shortness of breath, bleeding, nausea or vomiting, chestpain, or any unexpected problems, contact your Primary Care Provider. Call [facility] ([phone]) or report to the closest Emergency Room. Call 911 if necessary. 04/13/258 <Electronically signed by Daniel Brownlee DO> Cocoignbakari Signature (if applicable): CC: Dr. Tonio Fajardo DO ~ Signed [facility] Work Phone: [phone] 449-996408-24-2025 Radiology Diagnostic study [facility]08-24-2025 Radiology Diagnostic study [facility]08-22-2025 History and physical note Author Valdez Olivo [facility] Note Date/Time April 10, 2025 8: 47pm [facility] Medical Records Department [address] [place] [address] History & Physical Exam 04/10/252025 MR#: [id number] Acct: [id number] Name: PEDRO HILLMAN Rep #:[id number] : 1945 80 From: Valdez Olivo MD PCP: Dr. Tonio Fajardo, DO Status:ADM IN Location: [address] General Date of Admission: 04/10/25 Date of Service: 04/10/25 Chief Complaint: Here for rehabilitation. HPI Narrative PEDRO HILLMAN, is a 80 Male who presents with followin04/05/2025 [facility] ED Hypotension. Worsening productive cough, copd, history of lung cancer, chronic oxygen 3 liters nasal cannula, oxygen increased to 4 liters. Eliquis for atrial fibrillation, using inhaler at home. Pulsox 88% on 2 liters oxygen, SBP 85, EKG right bundle branch block, HR 100. Atropine given enroute, blood pressure improved. HR 50's slow flutter. Chest X-ray showed vascular congestion, BNP 4000, Lasix 40mg iv given. Insulin/glucose for hyperkalemia 5.8. 04/05/2025 Admit [facility]. Lasix 40mg iv bid, Magnesium, albumin for acute HFpEF. Trend troponin for elevated troponin, probably demand ischemia. Kayexalate given for K 5.8. Ceftriaxone iv, urine culture pending for uti. 04/06/2025 Lasix 40mg iv bid acute HFpEF. Creatinine 2.57. Plavix stopped 2/2 nose bleed. 04/07/2025 Echo EF 55%. Lasix 40mg iv bid, strict I's + O's, fluid restriction, daily weights for acute HFpEF. K 4.6. Nephrology following for acute on chronic kidney failure. 04/08/2025 Daughter in law requested palliative consult. Diuresing well. Creatinine 1.9 improved. 04/09/2025 Lightheaded, SBP 90's, sinus pauses. BB, CCB held, cardiology for tachybrady syndrome. Cardiology recommended pacemaker placement. 04/09/2025 Dr. Sorensen implanted dual chamber pacemaker. 04/10/2025 Dyspnea at rest, CT chest showed right moderate pleural effusion. Lasix restarted. Ultrasound guided thoracentesis right pleural effusion removed 1270mL fluid. 04/10/2025 Admit to TCU with debility, here for rehabilitation, strengthening, prior to discharge home alone. [facility] Medical History (Updated 04/10/25 @ 20:[address] Valdez Olivo MD) Presence of cardiac pacemaker Peripheral arterial disease Other persistent atrial fibrillation New onset atrial flutter DIMA Wears hearing aid in both ears Former smoker Coronary artery disease Peripheral vascular occlusive disease BPH (benign prostatic hyperplasia) Chronic kidney disease, stage 3 Atherosclerosis of coronary artery of holy cross heart without angina pectoris Hyperlipidemia Lower extremity [...] inh inhalation QDAY copd #60 ea 10/23/24 04/08/25 Rx 25 mcg/actuation powdr for inhalation (Anoro [...] 300 mg capsule 300 mg PO BID antibiotic #10 caps 04/08/25 Unknown Rx furosemide 40 mg tablet (Lasix) 40 mg PO DAILY diureti c #60 tabs 04/08/25 Unknown Rx guaifenesin 600 mg tablet, 1,200 mg (2 x 600 mg) PO BI D #20 04/08/25 Unknown Rx extended release 12 hr (Mucinex) tabs prednisone 20 mg tablet 20 mg PO BID steroid #10 tab s 04/08/25 Unknown Rx OXYGEN - Supplemental ([facility] 04/09/25 Unknown History INFORMATIONAL USE ONLY) Allergy/AdvReac Type Severity Reaction Status Date / [...] of aortocoronary bypass graft (~03/2013) Social History (Updated 04/10/25 @ 20:[address] Valdez Olivo MD) household members: none Smoking Status: Former smoker Tobacco: How many years used: 30 how long ago did patient quit smokin years ROS Constitutional Constitutional: Reports weakness; Denies chills, fever(s) or weight gain ENT HEENT: Denies headache(s), nasal congestion or nasal discharge Cardiovascular Cardiovascular: Denies chest pain or palpitations Respiratory/Chest Respiratory/Chest: Denies cough, excessive phlegm production or shortness of breath with exertion Gastrointestinal Gastrointestinal: Denies abdominal pain, nausea or vomiting Genitourinary Genitourinary: Denies dysuria Musculoskeletal Musculoskeletal: Denies joint pain or joint swelling Integumentary Integumentary: Denies rash or wounds Neurologic Neurologic: Denies focal weakness, numbness or tingling Psychiatric Psychiatric: Denies anxiety, auditory hallucinations, depression, homicidal ideation or suicidal ideation Physical Exam Const alert General Appearance: cooperative HEENT normocephalic Eyes PERRL and EOMs intact bilaterally Neck supple, no JVD and no carotid bruits Resp normal respiratory effort, normal air movement and clear to auscultation bilaterally Auscultation: diminished lung sounds right Cardio regular rate and regular rhythm GI normal to inspection, nondistended, normoactive bowel sounds, non-tender and non-distended Extremity normal capillary refill General Extremity: Negative for edema Skin no rashes or lesions noted General Skin Exam: no breakdown Psych affect normal Appearance: appropriate Assessment & Plan Assessment/Plan (1) Debility: (2) Acute respiratory failure with hypoxia: (3) Acute heart failure with preserved ejection fraction (HFpEF): (4) DARIUSZ (acute kidney injury): (5) Tachy-brittany syndrome: (6) Pleural effusion on right: (7) UTI (urinary tract infection): (8) COPD (chronic obstructive pulmonary disease): QUALIFIERS: COPD type: emphysema Emphysema type: centrilobular Qualified Code(s): J43.2 - Centrilobular emphysema (9) History of lung cancer: (10) Atrial fibrillation: (11) Type 2 diabetes mellitus with hyperglycemia: (12) Chronic kidney disease, stage 3b: (13) Hyperlipidemia: QUALIFIERS: Hyperlipidemia type: unspecified Qualified Code(s): E78.5 - Hyperlipidemia, unspecified (14) BPH (benign prostatic hyperplasia): PLAN: Plan 80 year old male with below past medical history hospitalized for acute respiratory failure hypoxia 2/2 acute HFpEF, complicated by urinary tract infection, hyperkalemia, acute kidney injury, elevated troponin, tachybrady syndrome s/p pacemaker implantation, right pleural effusion s/p thoracentesis, admitted to TCU with debility, here for rehabilitation, strengthening, prior to discharge home alone. * Debility - PT/OT. * Pain - Tylenol 1000mg q6 prn pain (1-10). * Bowel - senna/colace 1 tablet bid, Magnesium citrate 300mL daily prn. * Adult immunization - Administer pneumonia vaccine, covid vaccine, flu vaccine as appropriate. * DVT prophylaxis - Eliquis. * COPD - Incruse 1 puff daily, Albuterol 2 puffs q4 prn, Prednisone 20mg bid thru 04/15/2025. * Atrial fibrillation - Metoprolol succinate 12.5mg bid, Eliquis 2.5mg bid. * Urinary tract infection - Cefidnir 300mg bid thru 04/15/2025. * PAOD - Plavix 75mg daily. * Chronic HFpEF - Metoprolol succinate 12.5mg bid, Furosemide 40mg daily. * Congestion - Mucinex 1200mg q12. * Diabetes mellitus II - Glargine 30 units daily, Tradjenta 5mg daily. * Nutrition - MVI 1 tablet daily. * Hyperlipidemia - Pravastatin 20mg qhs. * BPH - Tamsulosin 0.4mg daily. * Tachybrady syndrome - s/p pacemaker placement. * Right pleural effusion - s/p thoracentesis removal 1270mL, follow labs. 04/10/252046 <Electronically signed by Valdez Olivo MD> Cosigner Signature (if applicable): CC: Dr. Tonio Fajardo DO; Dr. Valdez Olivo MD~ Signed [facility] Work Phone: 1(923) 608-532508-22-2025 [facility]08-22-2025 Discharge summary Author Nicola Roman [facility] Note Date/Time April 10, 2025 4: 10pm [facility] Medical Records Department [address] [place] [address] Transfer to Extended Care MR#: [id number] Acct: [id number] Name: PEDRO HILLMAN Rep #:[id number] : 1945 80 From: Nicola Roman MD PCP: Dr. Tonio Fajardo DO Status:ADM IN Certification of patient admission REQUIRED AT TIME OF ADMISSION. I CERTIFY THAT POST-HOSPITAL ECF SERVICES ARE REQUIRED TO BE GIVEN ON AN IN-PATIENT BASIS BECAUSE OF THE ABOVE NAMED PATIENT'S NEED FOR LONGTERM CARE ON A CONTINUING BASIS FOR THE CONDITION(S) FOR WHICH HE/SHE WAS RECEIVING IN-PATIENT HOSPITAL SERVICES PRIOR TO HIS/HER TRANSFER TO THE [facility]. 04/10/25 1610<Electronically signed by Nicola Roman MD> [...] treated with radiation therapy currently followed by [facility] oncology and will start 8. Chronic persistent [...] 2RF No Action (DME) OXYGEN - Supplemental ([facility] INFORMATIONAL USE ONLY) Gas See Rx Instructions .ROUTE Patient Comments: 2 lpm at rest, 3 lpm on exertion, 2 lpm at HS DME company: [employer] [facility] Rx Instructions: As directed Referrals / Follow [...] Fajardo DO; Dr. Deric Lantigua MD ~ [facility] Work Phone: 1([phone]) 172-691308-22-2025 Discharge summary Author Nicola Roman [facility] Note Date/Time April 10, 2025 4: 23pm [facility] Medical Records Department [address] [place] [address] Discharge Summary 04/10/25 1610 MR#: [id number] Acct: [id number] Name: PEDRO HILLMAN Rep #:[id number] : 1945 80 From: Nicola Roman MD PCP: Dr. Tonio Fajardo DO Status:ADM IN Location: [facility] [id number] Providers Date of Admission: 04/05/25 Date of Discharge: 04/10/25 Primary Care Physician: Dr. Tonio Fajardo DO Consultations 04/05/25 20:36 Consult: Nephrology Routine Consulting Provider: Davon Saravia Reason for Consult: CKD; stage IV with Hyperkalemia and AE CHF. EMERGENT Consult: No MD Notified: Yes Date Notified: 04/06/25 Time Notified: 06:58 Method of Notification: Answering Service 04/06/25 07:14 Consult: Onc/Wound/store group manager Routine Comment: Reason for Consult:: burn R [...] treated with radiation therapy currently followed by [facility] oncology and will start 8. Chronic persistent [...] BID #10 tabs 04/08/25 OXYGEN - Supplemental ([facility] INFORMATIONAL USE ONLY) 04/09/25 Physical Exam Narrative [...] (Auto) 91.6 H, Lymph % (Auto) 1.9L, Washburn % (Auto) 5.5, Eos % (Auto) 0.0, [...] pleural effusions consistent with CHF. Reading Location: [facility] Chest CT 04/10/25 07:49 IMPRESSION: Coronary artery calcification (CAC) is is present Moderate right pleural effusion with compressive atelectasis in the right lower lobe as well as airspace disease in the right upper lobe with volume loss. Small left pleural effusion with left basilar atelectasis. Findings suggestive of CHF. Reading Location: [id number] Thoracentesis Ultrasound 04/10/25 09:12 IMPRESSION: Successful diagnostic and therapeutic ultrasound-guided right thoracentesis. Laboratory results pending. Reading Location: [facility] D/C Instructions Call your doctor if you [...] 2RF No Action (DME) OXYGEN - Supplemental ([facility] INFORMATIONAL USE ONLY) Gas See Rx Instructions .ROUTE Patient Comments: 2 lpm at rest, 3 lpm on exertion, 2 lpm at HS DME company: [employer] per CM Rx Instructions: As directed Referrals / Follow Up: Carol Sousa [Registered Nurse] - 04/21/25 10:00 am ( FOLLOW UP PACER AND WOUNDCHECK ) Tonio Fajardo DO [Primary Care Provider] - Within 1 Week Disposition Disposition (needs filled in before D/C Order can be placed): Home, Self Care Charges/Coding Visit Charges Inpatient E&M: 36557 Disch Hosp >30min 04/10/25 1623 <Electronically signed by Nicola Roman MD> Cosigner Signature (if applicable): CC: Dr. Nicola Roman MD; Dr. Tonio Fajardo DO~ Signed [facility] Work Phone: 1(651) 256-449108-22-2025 [facility]08-22-2025 Radiology Diagnostic study [facility]08-22-2025 Hospital Discharge instructionsAdditional Instructions Date of Discharge: 04/10/25[facility] Work Phone: 1(952) 575-938508-22-2025 Progress note Author Nicola Roman [facility] Note Date/Time April 10, 2025 9: 18am [facility] Medical Records Department [address] [place] [address] Progress Note - Hospitalist 04/10/25 0750 MR#: [id number] Acct: [id number] Name: PEDRO HILLMAN Rep #:[id number] : 1945 80 From: Nicola Roman MD PCP: Dr. Tonio Fajardo, DO Status:ADM IN Location: [place] [address] Reason for Visit Chief Complaint: SOB, Cough [...] (Auto) 91.6 H, Lymph % (Auto) 1.9L, Washburn % (Auto) 5.5, Eos % (Auto) 0.0, [...] pleural effusions consistent with CHF. Reading Location: [facility] Physical Exam Narrative S GENERAL: dyspneic at [...] treated with radiation therapy currently followed by [facility] oncology and will start 8. Chronic persistent [...] 52 Minutes Charges/Coding Visit Charges Inpatient E&M: 99476 Subs Hosp 04/10/25 0918 <Electronically signed by Nicola Roman MD> Cosigner Signature (if applicable): CC: ~ Signed [facility] Work Phone: 1(306) 832-884708-22-2025 Radiology Diagnostic study [facility]08-21-2025 Radiology Diagnostic study [facility]08-21-[address] [facility]08-21-2025 Progress note Author Nicola Roman [facility] Note Date/Time April 09, 2025 11 :31am [facility] Medical Records Department [address] [place] [address] Progress Note - Hospitalist 04/09/255 MR#: [id number] Acct: [id number] Name: PEDRO HILLMAN Rep #:[id number] : 1945 80 From: Nicola Roman MD PCP: Dr. Tonio Fajardo, DO Status:ADM IN Location: [place] [address]- 1 Reason for Visit Chief Complaint: SOB, [...] (Auto) 91.8 H, Lymph % (Auto) 2.8L, Washburn % (Auto) 4.7, Eos % (Auto) 0.0, [...] treated with radiation therapy currently followed by [facility] oncology and will start 8. Chronic persistent [...] 50 Minutes Charges/Coding Visit Charges Inpatient E&M: 78307 Subs Hosp L3 04/09/25 1131 <Electronically signed by Nicola Roman MD> Cosigner Signature (if applicable): CC: ~ Signed [facility] Work Phone: 1(843) 857-682708-20-2025 Consult note Author Issa Looney [facility] Note Date/Time April 08, 2025 7: 12pm [facility] Medical Records Department [address] [facility] [place] [address] Consultation - Cardiology 04/08/25 1906 MR#: [id number] Acct: [id number] Name: PEDRO HILLMAN Rep #:[id number] : 1945 80 From: Issa Looney MD PCP: Dr. Tonio Fajardo, DO Status:ADM IN Location: [place] [id number]- [id number] Assessment & Plan Assessment/Plan (1) Chronic atrial fibrillation: PLAN: He does have atrial fibrillation which appears to be persistent. He has tachybradycardia syndrome with difficulty in controlling his heart rate. He hasbeen on beta-josselyn and calcium channel josselyn. At this point with a high-grade pauses it may be prudent to pursue a permanent pacemaker implantation. His Eliquis needs to be held. He is on a small dose. I have discussed this with him and his family they understand and agree to proceed. (2) Coronary artery disease: QUALIFIERS: Coronary Disease-Associated Artery/Lesion type: nativeartery Tribe vs. transplanted heart: holy cross heart Associated angina: without angina Qualified Code(s): I25.10 - Atherosclerotic heart disease of holy cross coronary artery without angina pectoris PLAN: He [...] has documented pauses over 8 seconds present. [facility] Medical History Peripheral arterial disease Other persistent atrial fibrillation New onset atrial flutter JOANNAID Wears hearing aid in both ears Former smoker Coronary artery disease Peripheral vascular occlusive disease BPH (benign prostatic hyperplasia) Chronic kidney disease, stage 3 Atherosclerosis of coronary artery of [place] heart without angina pectoris Hyperlipidemia Lower extremity [...] (Auto) 91.4 H, Lymph % (Auto) 3.5L, Washburn % (Auto) 4.5, Eos % (Auto) 0.0, [...] 91.4 H, Lymph % (Auto) 3.5 L, Washburn % (Auto) 4.5, Eos % (Auto) 0.0, [...] applicable): CC: Dr. 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 Tonio Fajardo, Status:ADM IN Location: [place] [address] Assessment & Plan Assessment/Plan (1) DARIUSZ (acute [...] kidney from prior ATN after CABG at OR March2013 (patient required hemodialysis for short period [...] Consult: 04/06/25 HPI Narrative HPI Narrative: PEDRO HILLMNA, is a 80 M with past medical [...] He he was last seen in our [place] office in April 2021. CKD is secondary to diabetic nephropathy and residual damage of kidney from prior ATN after CABG at OR March 2013 (patient required hemodialysis for short period of time). Baseline creatinine April 2021 was around 1.5 to 1.9 mg/dL. Yesterday in the emergency room creatinine 2.57, today his creatinine is 2.52 mg/dL. Patient denies any recent nausea, vomiting or diarrhea. He does state since feeling unwell appetite has been poor. No NSAIDs. Denies any hematuria, dysuria, frequency, nocturia. [facility] Medical History Peripheral arterial disease Other persistent atrial fibrillation New onset atrial flutter COVID Wears hearing aid in both ears Former smoker Coronary artery disease Peripheral vascular occlusive disease BPH (benign prostatic hyperplasia) Chronic kidney disease, stage 3 Atherosclerosis of coronary artery of holy cross heart without angina pectoris Hyperlipidemia Lower extremity [...] (Auto) 79.7 H, Lymph % (Auto) 7.3L, Washburn % (Auto) 10.7 H, Eos % (Auto) [...] Clarity Clear, Urine pH 5.0, Ur Specific Mckenney 1.015, Urine Protein 100 H, Urine Glucose [...] (Auto) 81.9 H, Lymph % (Auto) 6.4L, Washburn % (Auto) 10.1 H, Eos % (Auto) [...] process cannot be reliably excluded. Reading Location: [facility] Chest X-Ray 04/06/25 04:13 IMPRESSION: Unchanged bilateral pleural effusions. Unchanged passive atelectatic airspace disease of the lower lobes. Unremarkable median sternotomy wires. Minimal decrease in pulmonary congestion/infiltrates. Enlarged cardiac silhouette. Reading Location: [place] [address] 04/06/25 1226 <Electronically signed by Madeline ZHONG> Cosigner Signature (if applicable): 04/08/25 1851 <Electronically signed by Davon Saravia MD> CC: Dr. Tonio Fajardo, DO~ Signed [facility] Work Phone: 1(443) 390-138808-20-2025 Progress note Author [facility] Note Date/Time April 08, 2025 6: 51pm [facility] Medical Records Department [address] [place] [address] Progress Note - Nephrology 04/07/25 1046 MR#: [id number] Acct: [id number] Name: PEDOR HILLMAN Rep #:[id number] : 1945 80 From: Madeline shultz NP-C PCP: Dr. Tonio Fajardo, DO Status:ADM IN Location: [facility] [id number] Subjective Subjective Sitting in chair. No [...] 92.8 H, Lymph % (Auto) 3.1 L, Washburn % (Auto) 2.5, Eos % (Auto) 0.0, [...] 12:19 IMPRESSION: NORMAL RENAL ULTRASOUND. Reading Location: [facility] Physical Exam Narrative Alert and oriented x 3, no apparent distress S1, S2, rhythm irregular, rate controlled Diminished breath sounds. On O2 nasal cannula Abdomen soft, nontender, nondistended No pitting edema Assessment & Plan Assessment/Plan (1) DARUISZ (acute kidney injury): (2) CKD (chronic kidney [...] kidney from prior ATN after CABG at OR March 2013 (patient required hemodialysis for short [...] 2 L yesterday. No acute indication for SEAM FINISHER. Renal ultrasound, normal ultrasound, no hydronephrosis. Urine [...] for hospital follow-up after hospital discharge in [place] office. Assessment and plan reviewed with Dr. Saravia. 04/07/25 1103 <Electronically signed by Madeline ZHONG> Cosigner Signature (if applicable): 04/08/25 1851 <Electronically signed by Davon Saravia MD> CC: ~ Signed [facility] Work Phone: 1(958) 855-296508-20-2025 Progress note Author Nicola Roman [facility] Note Date/Time April 08, 2025 3: 41pm [facility] Medical Records Department [address] [place] [address] Progress Note - Hospitalist 04/08/25 0757 MR#: [id number] Acct: [id number] Name: PEDRO HILLMAN Rep #:[id number] : 1945 80 From: Nicola Roman MD PCP: Dr. Tonio Fajardo, DO Status:ADM IN Location: [place] [address] Reason for Visit Chief Complaint: SOB, Cough [...] (Auto) 91.4 H, Lymph % (Auto) 3.5L, Washburn % (Auto) 4.5, Eos % (Auto) 0.0, [...] treated with radiation therapy currently followed by [facility] oncology and will start 7. Chronic persistent [...] 35 Minutes Charges/Coding Visit Charges Inpatient E&M: 45535 Subs Hosp L2 04/08/25 1113 <Electronically signed [...] Cosigner Signature (if applicable): cc: ~* Signed [facility] Work Phone: 1(400) 647-245108-20-2025 Discharge summary Author Nicola Roman [facility] Note Date/Time April 08, 2025 1: 45pm [facility] Medical Records Department [address] [place] [address] Discharge Summary 04/08/25 1114 MR#: [id number] Acct: [id number] Name: PEDRO HILLMAN Rep #:[id number] : 1945 80 From: Nicola Roman MD PCP: Dr. Tonio Fajardo, Status:ADM IN Location: [place] [id number]- [id number] Providers Date of Admission: 04/05/25 Date of Discharge: 04/08/25 Primary Care Physician: Dr. Tonio Fajardo, DO Consultations 04/05/25 20:36 Consult: Nephrology Routine Consulting Provider: Davon Saravia Reason for Consult: CKD; stage IV with Hyperkalemia and AE CHF. EMERGENT Consult: No MD Notified: Yes Date Notified: 04/06/25 Time Notified: 06:58 Method of Notification: Answering Service 04/06/25 07:14 Consult: Onc/Wound/store group manager Routine Comment: Reason for Consult:: burn R [...] treated with radiation therapy currently followed by [facility] oncology and will start 7. Chronic persistent [...] 2010 and chronic venous insufficiency. 16 . DVT [...] (Auto) 91.4 H, Lymph % (Auto) 3.5L, Washburn % (Auto) 4.5, Eos % (Auto) 0.0, Baso % (Auto) 0.0, Absolute Neuts (auto)6.3, Absolute Lymphs (auto) 0.24 L, Nucleated RBC % 0, Sodium 138, Potassium 4.0, Chloride 95 L, Carbon Dioxide 32.0, Anion Gap 11, BUN 65 H, Creatinine 1.91H, Estim Creat Clear Calc 27.84 L, Est GFR (MDRD) Non-Af 35 L, BUN/Creatinine Ratio 33.8 H, Glucose 240 H, Calcium 8.6 08/20/25 06:29: POC Glucose 199 H Microbiology: Microbiology [...] Self Care Charges/Coding Visit Charges Inpatient E&M: 04191 Disch Hosp >30min 04/08/25 1345 <Electronically signed by Nicola Roman MD> Cosigner Signature (if applicable): CC: Dr. Nicola Roman MD; Dr. Tonio Fajardo DO~ Signed [facility] Work Phone: 1(170) 351-654708-20-2025 [facility]08-19-2025 Progress note Author Nicola Roman [facility] Note Date/Time April 07, 2025 11 :26am [facility] Medical Records Department [address] [place] [address] Progress Note - Hospitalist 04/07/25 1113 MR#: [id number] Acct: [id number] Name: PEDRO HILLMAN Rep #:[id number] : 1945 80 From: Nicola Roman MD PCP: Dr. Tonio Fajardo DO Status:ADM IN Location: [place] [address] Reason for Visit Chief Complaint: SOB, Cough [...] 92.8 H, Lymph % (Auto) 3.1 L, Washburn % (Auto) 2.5, Eos % (Auto) 0.0, [...] 12:19 IMPRESSION: NORMAL RENAL ULTRASOUND. Reading Location: [facility] Physical Exam Narrative S GENERAL: cooperative, dyspneic [...] treated with radiation therapy currently followed by [facility] oncology and will start 7. Chronic persistent [...] 52 Minutes Charges/Coding Visit Charges Inpatient E&M: 56427 Subs Hosp L3 04/07/25 1126 <Electronically signed by Nicola Roman MD> Cosigner Signature (if applicable): CC: ~ Signed [facility] Work Phone: 1(725) 461-260308-18-2025 Progress note Author Deric Lantigua [facility] Note Date/Time April 06, 2025 4: 53pm [facility] Medical Records Department [address] [place] [address] Progress Note - Hospitalist 04/06/25 0837 MR#: [id number] Acct: [id number] Name: PEDRO HILLMAN Rep #:[id number] : 1945 80 From: Deric Smith PCP: Dr. Tonio Fajardo, DO Status:ADM IN Location: [place] [address] Reason for Visit Chief Complaint: SOB, Cough [...] (Auto) 79.7 H, Lymph % (Auto) 7.3L, Washburn % (Auto) 10.7 H, Eos % (Auto) [...] Clarity Clear, Urine pH 5.0, Ur Specific Mckenney 1.015, Urine Protein 100 H, Urine Glucose [...] (Auto) 81.9 H, Lymph % (Auto) 6.4L, Washburn % (Auto) 10.1 H, Eos % (Auto) [...] process cannot be reliably excluded. Reading Location: [facility] Chest X-Ray 04/06/25 04:13 IMPRESSION: Unchanged bilateral pleural effusions. Unchanged passive atelectatic airspace disease of the lower lobes. Unremarkable median sternotomy wires. Minimal decrease in pulmonary congestion/infiltrates. Enlarged cardiac silhouette. Reading Location: [place] [address] Physical Exam Narrative Seen and examined Patient [...] oxygen requirement with increasing productive cough. Patient's csxjjgif-ri-gfj increased O2 to 4 L. Noleg swelling. 1. Acute on chronic HFpEF: Patient is being admitted in the PCU. proBNP 4003. Chest x-ray initially shows moderate right and small left pleural effusion and atelectasis and pulmonary edema. Serial troponins 64, 62 and 60 flat and indeterminate and not indicative of ACS.2D echo 03/05 reported EF 55%, PASP 42 mmHg with moderate TR, moderate NM and mild PI. TSH normal Plan: Patient is started on furosemide 40 mg IV twice daily. Heart failure coremeasures including intake and output, fluid restriction less than 1500 mL, dailyweight monitoring, kidney and electrolytes monitoring. 2. Persistent trial flutter/atrial fib: Currently patient in sinus rhythm. On ekg monitor tech sinus rhythm 105 bpm. During previous admission [...] Mucinex, incentive spirometry and Pep. ABG 7.3 //34 on 6 L of oxygen. Bicarb in [...] (Auto) 79.7 H, Lymph % (Auto) 7.3L, Washburn % (Auto) 10.7 H, Eos % (Auto) [...] Clarity Clear, Urine pH 5.0, Ur Specific Mckenney 1.015, Urine Protein 100 H, Urine Glucose [...] (Auto) 81.9 H, Lymph % (Auto) 6.4L, Washburn % (Auto) 10.1 H, Eos % (Auto) [...] 140 H Charges/Coding Visit Charges Inpatient E&M: 09940 Subs Hosp L3 04/06/25 1653 <Electronically signed by Deric Lantigua MD> Cosigner Signature (if applicable): CC: ~ Signed [facility] Work Phone: 1(459) 728-893508-18-2025 [facility] History and physical note Author Nicola Madison [facility] Note Date/Time April 06, 2025 6: 23am [facility] Medical Records Department [address] [place] [address] H&P Exam - Hospitalist 04/05/251917 MR#: [id number] Acct: [id number] Name: PEDRO HILLMAN Rep #:[id number] : 1945 80 From: Nicola Levy DO PCP: Dr. Tonio Fajardo, DO Status:ADM IN Location: [facility] [id number]- 1 HPI - General General Date of [...] patient still FULL CODE who presents to [facility] ER complaining of shortness of breath, [...] status expected to extend beyond 2 midnights. [facility] Medical History Peripheral arterial disease Other persistent atrial fibrillation New onset atrial flutter COVID Wears hearing aid in both ears Former smoker Coronary artery disease Peripheral vascular occlusive disease BPH (benign prostatic hyperplasia) Chronic kidney disease, stage 3 Atherosclerosis of coronary artery of holy cross heart without angina pectoris Hyperlipidemia Lower extremity [...] (Auto) 79.7 H, Lymph % (Auto) 7.3L, Washburn % (Auto) 10.7 H, Eos % (Auto) [...] process cannot be reliably excluded. Reading Location: [id number] Assessment & Plan Assessment/Plan (1) Acute on [...] 75 minutes. Charges/Coding Visit Charges Inpatient E&M: 92124 Init Hosp L3 04/06/25 0623 <Electronically signed by Nicola Lindsey DO> Cosigner Signature (if applicable): CC: Dr. Nicola Lindsey DO; Dr. Tonio Fajardo DO~ Signed [facility] Work Phone: 1(291) 589-239008-18-2025 Radiology Diagnostic study [facility]08-18-2025 Discharge summary Author Ld Hayes [facility] Note Date/Time April 06, 2025 12 :36am [facility] Medical Records Department [address] [place] [address] Emergency Department Summary 04/05/25 MR#: [id number] Acct: [id number] Name: PEDRO HILLMAN Rep #:[id number] : 1945 80 From: Ld Quintero PCP: Dr. Tonio Fajardo DO Status:ADM IN Location: [place] [address] HPI History of Present Illness Chief Complaint: Hypotension Informant: patient and family Narrative Narrative: Presents by EMS from home daughter in law present. Increasing productive cough. Chronic oxygenation of 3 L for COPD history remote history of lung cancer. Lmffjcfu-xe-ign reports that increase his oxygen to 4 [...] CKD history. He is followed by the [facility]. Reports he was admitted 3 weeks ago approximately had his metoprolol held and placed on diltiazem. Prior similar symptoms: Yes PFSH [facility] Medical History Peripheral arterial disease Other persistent atrial fibrillation New onset atrial flutter COVID Wears hearing aid in both ears Former smoker Coronary artery disease Peripheral vascular occlusive disease BPH (benign prostatic hyperplasia) Chronic kidney disease, stage 3 Atherosclerosis of coronary artery of holy cross heart without angina pectoris Hyperlipidemia Lower extremity [...] clinician: Hospitalist This note was generated with [employer] dictation software. It may contain incorrectwords, spelling, [...] 79.7 H Lymph % (Auto) 7.3 L Washburn % (Auto) 10.7 H Eos % (Auto) [...] process cannot be reliably excluded. Reading Location: [id number] Discharge Plan Dx/Rx/DC Orders Clinical Impression: CHF exacerbation, Chronic kidney disease, stage 3, Atrial flutter, Chronic anticoagulation, Hyperkalemia Disposition Disposition: Acute Care Hospital [facility] Discharge Date/Time: 04/05/25 20:38 What to do if you have Problems For any increased pain, shortness of breath, bleeding, nausea or vomiting, chestpain, or any unexpected problems, contact your Primary Care Provider. Call [facility] ([phone]) or report to the closest Emergency Room. Call 911 if necessary. 04/06/25 0036 <Electronically signed by Ld Quintero> Cosigner Signature (if applicable): CC: Dr. Tonio Fajardo DO ~ Signed [facility] Work Phone: 1([phone]) 326-845308-17-2025 Radiology Diagnostic study [facility] Discharge summary [facility] Medical Records Department [address] [place] [address] Emergency Department Summary 03/15/25 MR#: [id number] Acct: [id number] Name: PEDRO HILLMAN Rep #:[id number] : 1945 80 From: Alex Matias MD [...] similar symptoms: Yes Recent Illness/Hospitalization: Yes (CHF) PFSH [facility] Medical History Other persistent atrial fibrillation New onset atrial flutter COVID Wears hearing aid in both ears Former smoker Coronary artery disease Peripheral vascular occlusive disease BPH (benign prostatic hyperplasia) Chronic kidney disease, stage 3 Atherosclerosis of coronary artery of holy cross heart without angina pectoris Hyperlipidemia Lower extremity [...] 4 doses of apixaban, Eliquis Print Language: German Disposition Disposition: Home, Self Care What to do if you have Problems For any increased pain, shortness of breath, bleeding, nausea or vomiting, chestpain, or any unexpected problems, contact your Primary Care Provider. Call [facility] ([phone]) or report tothe closest Emergency Room. Call 911 if necessary. 03/15/251821 Cosigner Signature (if applicable): CC: Dr. Tonio Fajardo DO ~ Signed [facility]07-27-2025 Discharge summary Author Alex Matias [facility] Note Date/Time March 15, 2025 6:22 pm [facility] Medical Records Department [address] [place] [address] Emergency Department Summary 03/15/25 MR#: [id number] Acct: [id number] Name: PEDRO HILLMAN Rep #:[id number] : 1945 80 From: Alex Matias MD [...] similar symptoms: Yes Recent Illness/Hospitalization: Yes (CHF) [facility] Medical History Other persistent atrial fibrillation New onset atrial flutter COVID Wears hearing aid in both ears Former smoker Coronary artery disease Peripheral vascular occlusive disease BPH (benign prostatic hyperplasia) Chronic kidney disease, stage 3 Atherosclerosis of coronary artery of holy cross heart without angina pectoris Hyperlipidemia Lower extremity [...] 4 doses of apixaban, Eliquis Print Language: German Disposition Disposition: Home, Self Care What to do if you have Problems For any increased pain, shortness of breath, bleeding, nausea or vomiting, chestpain, or any unexpected problems, contact your Primary Care Provider. Call [facility] ([phone]) or report to the closest Emergency Room. Call 911 if necessary. 03/15/25 6772 <Electronically signed by Alex Matias MD> Cosigner Signature (if applicable): CC: Dr. Tonio Fajardo DO ~ Signed [facility] Work Phone: 1(512) 306-920407-27-2025 Hospital Discharge instructionsAdditional Instructions 1. Hold the next 4 doses of apixaban, Eliquis. 2. Take amoxicillin as prescribed until gone 3. Contact Dr. Vasquez's office in the morning to be seen later this week to have the pack removed.[facility] Work Phone: 1(135) 441-367707-21-2025 Consult note [facility] Medical Records Department [address] [place] [address] Counseling Note - Pharmacy 03/09/25 1457 MR#: [id number] Acct: [id number] Name: PEDRO HILLMAN Rep #:[id number] : 1945 80 From: Mala Sterling PCP: Dr. Tonio Fajardo, DO Status:ADM IN Y Location: [place] [id number] Counseling Pharmacy Service has performed discharge [...] Signature (if applicable): Date CC: ~ Signed [facility]07-21-2025 Discharge summary Author Deric Lantigua [facility] Note Date/Time March 09, 2025 12:5 2pm [facility] Medical Records Department [address] [place] [address] Discharge Summary 03/09/25 1251 MR#: [id number] Acct: [id number] Name: PEDRO HILLMAN Rep #:[id number] : 1945 80 From: Deric Smith PCP: Dr. Tonio Fajardo, DO Status:ADM [facility] Prov[facility] Date of Admission: 03/04/25 Date of Discharge: 03/09/25 Primary Care Physician: Dr. Tonio Fajarod, DO Consultations 03/04/25 21:21 Consult: Cardiology Routine Consulting Provider: [facility] Reason for Consult: AE CHF, a flutter with RVR and elevated troponin. EMERGENT Consult: No MD Notified: Yes Date Notified: 03/05/25 Time Notified: : Method of Notification: Text Method of Consult:: In-Person Reason For Visit: AE CHF, ATRIAL FLUTTER; WITH RVR AND ELEVATED Diagnosis Discharge Diagnosis (1) Other persistent atrial fibrillation: Status: Acute Code(s): I48.19 - Other persistent atrial fibrillation (2) Coronary artery disease: Status: Acute Code(s): I25.10 - Atherosclerotic heart disease of holy cross coronary artery without angina pectoris Qualifiers: Coronary Disease-Associated Artery/Lesion type: holy cross artery Tribe vs. transplanted heart: holy cross heart Associated angina: without angina Qualified Code(s): I25.10 - Atherosclerotic heart disease of holy cross coronary artery without angina pectoris (3) Chronic anticoagulation: Status: Acute Code(s): Z79.01 - bear keeper (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 of anticoagulants Plan 80-year-old gentleman [...] no significant delta change. ACS ruled out. Perinatal Breastfeeding Assistant is consulted. Repeat proBNP is elevated but it does not reflect treatment response as it should not be ordered for that. Clinically patient is feeling better with improvement in shortness of breath. 2D echo 03/05 reported EF 55%, PASP 42 mmHg with moderate TR, moderate NM and mild PI. 03/06: Furosemide changed to [...] conduction. Later on irregular variable conduction on ekg monitor tech 03/06: Discussed with the sales and service specialist. Metoprolol increased to 25 mg twice daily, [...] pressure in the 90s. Discussed with the sales and service specialist. Advised to discontinue to discontinue metoprolol and [...] the CODE STATUS. 03/09: Discussed with the sales and service specialist.Patient heart rate controlled in 70s. Yesterday rate was in 80s. Patient tolerated Cardizem 30 mg every 8 hourly therefore discharged on Cardizem CD 120 mg. I called patient's jcpnvern-mg-sst and explained the medication. Perinatal Breastfeeding Assistant felt probably does not need even pacemaker. [...] at the right lung base. Reading Location: [facility]--1 Echocardiogram 03/04/25 20:08 Interpretation Summary Moderate concentric [...] in right lung base aeration. Reading Location: [facility]- Medications at Discharge Home Medications insulin glargine [...] 03/05/25 14:17 SB (Rec: 03/05/25 14:17 SB [id number]) Nutrition Malnutrition Evidence of Yes Malnutrition Exists [...] (Auto) 72.6 H, Lymph % (Auto) 9.7L, Washburn % (Auto) 12.1 H, Eos % (Auto) [...] Mitchell; Reinaldo Mclain; Santos Hsu; Iker Rodriguez FAST FOOD CASHIER; Leslie Arriaga; Tadeo Thakkar Instructions Additional Instructions [...] Fajardo DO [Primary Care Provider] - Leslie Arriaga, PA [Med Staff - Adv Practice Prof] - Within 2 Weeks Rodolfo Rob MD [Med Staff - Active Staff] - Within 1 Week (Discharged with Claudio catheter.) Disposition Disposition (needs filled in before D/C Order can be placed): Home, Self Care Charges/Coding Visit Charges Inpatient E&M: 55041 Disch Hosp >30min 03/09/25 1252 <Electronically signed by Deric Lantigua MD> Cosigner Signature (if applicable): CC: Dr. Tonio Fajardo DO; Dr. Willian Glaser MD; Dr. Deric Lantigua MD~ Signed [facility] Work Phone: 1([phone]) [phone] Discharge summary Author Deric Lantigua [facility] Note Date/Time March 09, 2025 12:4 4pm [facility] Medical Records Department [address] [place] [address] Instructions for Home/Discharge Instructions 03/09/25 1031 MR#: [id number] Acct: [id number] Name: PEDRO HILLMAN Rep #:[id number] : 1945 80 From: Deric Smith PCP: Dr. oTnio Fajardo DO Status:ADM IN Discharge Instructions DC [...] Mitchell; Reinaldo Mclain; Santos Hsu; Iker Rodriguez FAST FOOD CASHIER; Leslie Arriaga PA; Tadeo Thakkar Discharge Orders/Prescriptions [...] Fajardo DO [Primary Care Provider] - Leslie Arriaga, PA [Med Staff - [facility] Practice Prof] - Within 2 Weeks Disposition [...] Fajardo DO; Dr. Willian Glaser MD; Dr. Olry Mitchell MD; Dr. Santos Hsu MD; Dr. Reinaldo Mclain MD; RICKIE Kumari; RICKIE Cummins ~ Signed [facility] Work Phone: 1([phone]) [phone] Hospital Discharge instructionsAdditional Instructions Discharge with Claudio catheter. Date of Discharge: 03/09/25[facility] Work Phone: 1(874) 988-679407-21-2025 Discharge summary [facility] Medical Records Department [address] [place] [address] Discharge Summary 03/09/25 1251 MR#: [id number] Acct: [id number] Name: PEDRO HILLMAN Rep #:[id number] : 1945 80 From: Deric Smith PCP: Dr. Tonio Fajardo DO Status:ADM IN Location: [facility] SUI407- 1 Providers Date of Admission: 03/04/25 Date of Discharge: 03/09/25 Primary Care Physician: Dr. Tonio Fajardo DO Consultations 03/04/25 21:21 Consult: Cardiology Routine Consulting Provider: [facility] Reason for Consult: AE CHF, a flutter with RVR and elevated troponin. EMERGENT Consult: No MD Notified: Yes Date Notified: 03/05/25 Time Notified: : Method of Notification: Text Method of Consult:: In-Person Reason For Visit: AE CHF, ATRIAL FLUTTER; WITH RVR AND ELEVATED Diagnosis Discharge Diagnosis (1) Other persistent atrial fibrillation: Status: Acute Code(s): I48.19 - Other persistent atrial fibrillation (2) Coronary artery disease: Status: Acute Code(s): I25.10 - Atherosclerotic heart disease of holy cross coronary artery without angina pectoris Qualifiers: Coronary Disease-Associated Artery/Lesion type: holy cross artery Tribe vs. transplanted heart: nativeheart Associated angina: without angina Qualified Code(s): I25.10 - Atherosclerotic heart disease of holy cross coronary artery without angina pectoris (3) Chronic anticoagulation: Status: Acute Code(s): Z79.01 - bear keeper (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 of anticoagulants Plan 80-year-old gentleman [...] no significant delta change. ACS ruled out. Perinatal Breastfeeding Assistant is consulted. Repeat proBNP is elevated but it does not reflect treatment response as it should not be ordered for that. Clinically patient is feeling better with improvement in shortness of breath. 2D echo 03/05 reported EF 55%, PASP 42 mmHg with moderate TR, moderate NM and mild PI. 03/06: Furosemide changed to [...] conduction. Later on irregular variable conduction on ekg monitor tech 03/06: Discussed with the sales and service specialist. Metoprolol increased to 25 mg twice daily, Cardizem 60 mg [id number]. If heart rate controlled, will switch to [...] pressure in the 90s. Discussed with the sales and service specialist. Advised to discontinue to discontinue metoprolol and [...] the CODE STATUS. 03/09: Discussed with the sales and service specialist.Patient heart rate controlled in 70s. Yesterday rate was in 80s. Patient tolerated Cardizem 30 mg every 8 hourly therefore discharged on Cardizem CD 120 mg. I called patient's naxazqmf-nx-gjz and explained the medication. Perinatal Breastfeeding Assistant felt probably does not need even pacemaker. [...] at the right lung base. Reading Location: [facility]-1 Echocardiogram 03/04/25 20:08 Interpretation Summary Moderate [...] in right lung base aeration. Reading Location: [facility]- Medications at Discharge Home Medications insulin glargine [...] 03/05/25 14:17 SB (Rec: 03/05/25 14:17 SB [id number]) Nutrition Malnutrition Evidence of Yes Malnutrition Exists [...] (Auto) 72.6 H, Lymph % (Auto) 9.7L, Washburn % (Auto) 12.1 H, Eos % (Auto) [...] Self Care Charges/Coding Visit Charges Inpatient E&M: 06885 Disch Hosp >30min 03/09/25 1252 Cosigner Signature (if applicable): CC: Dr. Tonio Fajardo DO; Dr. Willian Glaser MD; Dr. Deric Lantigua MD~ Signed [facility]07-21-2025 [facility] Discharge summary [facility] Medical Records Department [address] [place] [address] Instructions for Home/Discharge Instructions 03/09/25 1031 MR#: [id number] Acct: [id number] Name: PEDRO HILLMAN Rep #:[id number] : 1945 80 From: Deric Smith PCP: [...] Fajardo DO [Primary Care Provider] - Leslie Arriaga, PA [Med Staff - Adv Practice Prof] [...] MD; RICKIE Kumari; RICKIE Cummins ~ Signed [facility]07-21-2025 Progress note Author Willian Glaser [facility] Note Date/Time March 09, 2025 9:53 am [facility] Medical Records Department [address] [place] [address] Progress Note - Cardiology 03/09/25 0943 MR#: [id number] Acct: [id number] Name: PEDRO HILLMAN Rep #:[id number] : 1945 80 From: Willian Glaser MD PCP: Dr. Tonio Fajardo DO Status:ADM IN Location: [place] [address] Subjective Subjective Patient evaluated in a seated [...] (Auto) 72.6 H, Lymph % (Auto) 9.7L, Washburn % (Auto) 12.1 H, Eos % (Auto) [...] 72.6 H, Lymph % (Auto) 9.7 L, Washburn % (Auto) 12.1 H, Eos % (Auto) [...] disease: QUALIFIERS: Coronary Disease-Associated Artery/Lesion type: nativeartery Tribe vs. transplanted heart: holy cross heart Associated angina: without angina Qualified Code(s): I25.10 - Atherosclerotic heart disease of holy cross coronary artery without angina pectoris PLAN: Patient carries a history of bypass graft surgery followed in the [facility]. The patient should be reevaluated in 2 to 4 weeks in the [facility] with advanced practitioner. Given the [...] At discharge patient should follow-up with the [facility] advanced practitioner in 2 to 3 weeks. 4. If further assistance is needed please reconsult the [facility]. Charges/Coding Visit Charges Inpatient E&M: 91239 Subs Hosp L3 03/09/25 0953 <Electronically signed by Willian Glaser MD> Cosigner Signature (if applicable): CC: ~ Signed [facility] Work Phone: 1(215) 304-667007-21-2025 Progress note [facility] Medical Records Department [address] [place] [address] Progress Note - Cardiology 03/09/25942 MR#: [id number] Acct: [id number] Name: PEDRO HILLMAN Rep #:[id number] : 1945 80 From: Willian Glaser MD PCP: Dr. Tonio Fajardo, DO Status:ADM IN Location: [place] [address] Subjective Subjective Patient evaluated in a seated [...] (Auto) 72.6 H, Lymph % (Auto) 9.7L, Washburn % (Auto) 12.1 H, Eos % (Auto) [...] 72.6 H, Lymph % (Auto) 9.7 L, Washburn % (Auto) 12.1 H, Eos % (Auto) [...] disease: QUALIFIERS: Coronary Disease-Associated Artery/Lesion type: nativeartery Tribe vs. transplanted heart: holy cross heart Associated angina: without angina Qualified Code(s): I25.10 - Atherosclerotic heart disease of holy cross coronary artery without angina pectoris PLAN: Patient carries a history of bypass graft surgery followed in the [facility]. The patient should be reevaluated in 2 to 4 weeks in the [facility] with advanced practitioner. Given the [...] At discharge patient should follow-up with the [facility] advanced practitioner in 2 to3 weeks. 4. If further assistance is needed please reconsult the [facility]. Charges/Coding Visit Charges Inpatient E&M: 15578 Subs Hosp L3 03/09/25 0953 Cosigner Signature (if applicable): CC: ~ Signed [facility]07-20-2025 Progress note Author Deric Lantigua [facility] Note Date/Time March 08, 2025 1:34 pm [facility] Medical Records Department [address] [place] [address] Progress Note - Hospitalist 03/08/25 0844 MR#: [id number] Acct: [id number] Name: PEDRO HILLMAN Rep #:[id number] : 1945 80 From: Deric Smith PCP: Dr. Tonio Fajardo, DO Status:ADM IN Location: [place] [address] Reason for Visit Chief Complaint: SOB. Objective [...] 03/05/25 14:17 SB (Rec: 03/05/25 14:17 SB [id number]) Nutrition Malnutrition Evidence of Yes Malnutrition Exists [...] hematuria: (8) Atherosclerosis of coronary artery of holy cross heart without angina pectoris: QUALIFIERS: Coronary Disease-Associated Artery/Lesion type: nativeartery Qualified Code(s): I25.10 - Atherosclerotic heart disease of holy cross coronary artery without angina pectoris (9) Overweight [...] no significant delta change. ACS ruled out. Perinatal Breastfeeding Assistant is consulted. Repeat proBNP is elevated but it does not reflect treatment response as it should not be ordered for that. Clinically patient is feeling better with improvement in shortness of breath. 2D echo 03/05 reported EF 55%, PASP 42 mmHg with moderate TR, moderate NM and mild PI. 03/06: Furosemide changed to [...] conduction. Later on irregular variable conduction on ekg monitor tech 03/06: Discussed with the sales and service specialist. Metoprolol increased to 25 mg twice daily, [...] pressure in the 90s. Discussed with the sales and service specialist. Advised to discontinue to discontinue metoprolol and [...] at the right lung base. [facility] Echocardiogram 03/04/25 20:08 Interpretation Summary Moderate [...] in right lung base aeration. Reading Location: [place] [address] Charges/Coding Addendum Addendum: Total time of the visit including total time spent in counseling or coordinationof care, (more than 50% of the total time, spent in obtaining medical information from nurses and other ancillary care providers ,explaining to the patient about labs, imaging, diagnosis and management of active complex medical conditions), multiple active cardiac issues, urinary retention discussion with sales and service specialist and clinical update given to patient's bwttvntd-mo-liu, review of labs and imaging is 35 minutes. Visit Charges Inpatient E&M: 79363 Subs Hosp L3 03/08/25 1040 <Electronically signed by Deric Lantigua MD> Cosigner Signature (if applicable): CC: ~ Signed ADDENDUM by Dr. Deric Lantigua MD on 03/08/25 at 1334 Addendum The patient's son and eizkyatw-ga-lht came to visit him. They decided patient to be DNR CC arrest with no intubation CODE STATUS changed. Living will/advanced directive/end of life care: Patient does not have living will or advanced directive. He is next of kin is his son and pzbpykuj-vw-ujz. After discussion of benefits/risks procedures involved with full code, DNR CC arrest and DNR CC, the patient and his ftihokfp-hp-xdx he opted for DNR CC arrest with no intubation. Patient also said that he does not want pacemaker but his vzegmxlv-cs-aqd and son will discuss with him Patient does want artificial life support including intubation, tube feed, ventilator and/chest compression, central venous catheter, vasopressor and DC shock if needed Total time spent in jbhq-wp-pipk encounter in discussion of advanced directive 17 minutes. 03/08/25 1334<Electronically signed by Deric Lantigua MD> Cosigner Signature (if applicable): cc: ~* Signed [facility] Work Phone: 1(915) 786-400507-20-2025 Progress note [facility] Medical Records Department [address] [place] [address] Progress Note - Hospitalist 03/08/25 0844 MR#: [id number] Acct: [id number] Name: PEDRO HILLMAN Rep #:[id number] : 1945 80 From: Deric Smith PCP: Dr. Tonio Fajardo, DO Status:ADM IN Location: [place] [address] Reason for Visit Chief Complaint: SOB. Objective [...] 03/05/25 14:17 SB (Rec: 03/05/25 14:17 SB [id number]) Nutrition Malnutrition Evidence of Yes Malnutrition Exists [...] hematuria: (8) Atherosclerosis of coronary artery of holy cross heart without angina pectoris: QUALIFIERS: Coronary Disease-Associated Artery/Lesion type: nativeartery Qualified Code(s): I25.10 - Atherosclerotic heart disease of holy cross coronary artery without angina pectoris (9) Overweight [...] no significant delta change. ACS ruled out. Perinatal Breastfeeding Assistant is consulted. Repeat proBNP is elevated but it does not reflect treatment response as it should not be ordered for that. Clinically patient is feeling better with improvement in shortness of breath. 2D echo 03/05 reported EF 55%, PASP 42 mmHg with moderate TR, moderate NM and mild PI. 03/06: Furosemide changed to [...] conduction. Later on irregular variable conduction on ekg monitor tech 03/06: Discussed with the sales and service specialist. Metoprolol increased to 25 mg twice daily, Cardizem 60 mg [id number]. If heart rate controlled, will switch to [...] pressure in the 90s. Discussed with the sales and service specialist. Advised to discontinue to discontinue metoprolol and [...] at the right lung base. Reading Location: [facility]-1 Echocardiogram 03/04/25 20:08 Interpretation Summary Moderate [...] in right lung base aeration. Reading Location: [place] [address] Charges/Coding Addendum Addendum: Total time of the visit including total time spent in counseling or coordinationof care, (more than50% of the total time, spent in obtaining medical information from nurses and other ancillary care providers ,explaining to the patient about labs, imaging, diagnosis and management of active complexmedical conditions), multiple active cardiac issues, urinary retention discussion with cardiologistand clinical update given to patient's uixacfzj-ue-bcn, review of labs and imaging is 35 minutes. Visit Charges Inpatient E&M: 05165 [facility] Hosp 03/08/25 1040 Cosigner Signature (if applicable): CC: ~ Signed ADDENDUM by Dr. Deric Lantigua MD on 03/08/25 at 1334 Addendum The patient's son and syisfrki-xu-ioq came to visit him. They decided patient to be DNR CC arrest with no intubation CODE STATUS changed. Living will/advanced directive/end of life care: Patient does not have living will or advanced directive. He is next of kin is his son and jffrypxd-rf-wci. After discussion of benefits/risks procedures involved with full code, DNR CC arrest and DNR CC, the patient and his ajncnccc-yr-pzx he opted for DNR CC arrest with no intubation. Patient also said that he does not want pacemaker but his vyzygfww-uu-bbh and son will discuss with him Patient does want artificial life support including intubation, tube feed, ventilator and/chest compression, central venous catheter, vasopressor and DC shock if needed Total time spent in oruf-io-xuea encounter in discussion of advanced directive 17 minutes. 03/08/25 1334 Cosigner Signature (if applicable): cc: ~* Signed [facility]07-20-2025 Progress note Author Marjorie Green [facility] Note Date/Time March 08, 2025 8:51 am [facility] Medical Records Department [address] [place] [address] [place] [address] Progress Note - Cardiology 03/08/25 0848 MR#: [id number] Acct: [id number] Name: PEDRO HILLMAN Rep #:[id number] : 1945 80 From: Marjorie Green MD PCP: Dr. Tonio Fajardo, DO Status:ADM IN Location: [place] [address] Subjective Subjective Denies any complaints. Became bradycardic [...] Cosigner Signature (if applicable): CC: ~ Signed [facility] Work Phone: 1(727) 558-555907-20-2025 Progress note [facility] Medical Records Department [address] [place] [address] Progress Note - Cardiology 03/08/25 0848 MR#: [id number] Acct: [id number] Name: PEDRO HILLMAN Rep #:[id number] : 1945 80 From: Marjorie Green MD PCP: Dr. Tonio Fajardo, DO Status:ADM IN Location: [place] [address] Subjective Subjective Denies any complaints. Became bradycardic [...] Cosigner Signature (if applicable): CC: ~ Signed [facility]07-19-2025 Progress note Author Deric Lantigua [facility] Note Date/Time March 07, 2025 1:51 pm [facility] Medical Records Department [address] [place] [address] Progress Note - Hospitalist 03/07/25 1342 MR#: [id number] Acct: [id number] Name: PEDRO HILLMAN Rep #:[id number] : 1945 80 From: Deric Smith PCP: Dr. Tonio Fajardo, DO Status:ADM IN Location: [facility] [id number]- 1 Reason for Visit Chief Complaint: SOB. [...] 03/05/25 14:17 SB (Rec: 03/05/25 14:17 SB [id number]) Nutrition Malnutrition Evidence of Yes Malnutrition Exists [...] hematuria: (8) Atherosclerosis of coronary artery of holy cross heart without angina pectoris: QUALIFIERS: Coronary Disease-Associated Artery/Lesion type: nativeartery Qualified Code(s): I25.10 - Atherosclerotic heart disease of holy cross coronary artery without angina pectoris (9) Overweight [...] no significant delta change. ACS ruled out. Perinatal Breastfeeding Assistant is consulted. Repeat proBNP is elevated but it does not reflect treatment response as it should not be ordered for that. Clinically patient is feeling better with improvement in shortness of breath. 2D echo 03/05 reported EF 55%, PASP 42 mmHg with moderate TR, moderate NM and mild PI. 03/06: Furosemide changed to [...] conduction. Later on irregular variable conduction on ekg monitor tech 03/06: Discussed with the sales and service specialist. Metoprolol increased to 25 mg twice daily, [...] Results 03/06/25 16:55: POC Glucose 117 H 07/18/25 22:29: POC Glucose 146 H 03/07/25 05:20: [...] at the right lung base. Reading Location: [facility]1 Echocardiogram 03/04/25 20:08 Interpretation Summary Moderate concentric [...] in right lung base aeration. Reading Location: [place] [address] Charges/Coding Visit Charges Inpatient E&M: 90160 Subs Hosp L2 03/07/25 1351 <Electronically signed by Deric Lantigua MD> Cosigner Signature (if applicable): CC: ~ Signed [facility] Work Phone: 1(840) 485-469707-19-2025 Progress note [facility] Medical Records Department [address] [place] [address] Progress Note - Hospitalist 03/07/25 1342 MR#: [id number] Acct: [id number] Name: PEDRO HILLMAN Rep #:[id number] : 1945 80 From: Deric Smith PCP: Dr. Tonio Fajardo, DO Status:ADM IN Location: [place] [address] Reason for Visit Chief Complaint: SOB. Objective [...] 300 / 300 Balance -2543.00 / -2543.00 -2019 / -2020 -300 / -300 Medical Nutrition Assessment Dietitian: Malnutrition Criteria Met Start: 03/05/25 14:17 Freq: Status: Active Protocol: Document 03/05/25 14:17 SB (Rec: 03/05/25 14:17 SB [id number]) Nutrition Malnutrition Evidence of Yes Malnutrition Exists [...] hematuria: (8) Atherosclerosis of coronary artery of holy cross heart without angina pectoris: QUALIFIERS: Coronary Disease-Associated Artery/Lesion type: nativeartery Qualified Code(s): I25.10 - Atherosclerotic heart disease of holy [place] coronary artery without angina pectoris (9) Overweight [...] no significant delta change. ACS ruled out. Perinatal Breastfeeding Assistant is consulted. Repeat proBNP is elevated but it does not reflect treatment response as it should not be ordered for that. Clinically patient is feeling better with improvement in shortness of breath. 2D echo 03/05 reported EF 55%, PASP 42 mmHg with moderate TR, moderate NM and mild PI. 03/06: Furosemide changed to [...] conduction. Later on irregular variable conduction on ekg monitor tech 03/06: Discussed with the sales and service specialist. Metoprolol increased to 25 mg twice daily, Cardizem 60 mg [id number]. If heart rate controlled, will switch to [...] at the right lung base. Reading Location: [facility] Echocardiogram 03/04/25 20:08 Interpretation Summary Moderate [...] in right lung base aeration. Reading Location: [place] [address] Charges/Coding Visit Charges Inpatient E&M: 20472 Subs Hosp L2 03/07/25 1351 Cosigner Signature (if applicable): CC: ~ Signed [facility]07-18-2025 Progress note Author Deric Lantigua [facility] Note Date/Time March 06, 2025 3:46 pm [facility] Medical Records Department [address] [place] [address] Progress Note - Hospitalist 03/06/25 1540 MR#: [id number] Acct: [id number] Name: PEDRO HILLMAN Rep #:[id number] : 1945 80 From: Deric Smith PCP: Dr. Tonio Fajardo, DO Status:ADM IN Location: [place] [address] Reason for Visit Chief Complaint: SOB. Objective [...] 03/05/25 14:17 SB (Rec: 03/05/25 14:17 SB [id number]) Nutrition Malnutrition Evidence of Yes Malnutrition Exists [...] is improved. Still in A-fib/flutter with heart [id number]. Shortness of breath is better. Did not [...] hematuria: (8) Atherosclerosis of coronary artery of holy cross heart without angina pectoris: QUALIFIERS: Coronary Disease-Associated Artery/Lesion type: nativeartery Qualified Code(s): I25.10 - Atherosclerotic heart disease of holy [place] coronary artery without angina pectoris (9) Overweight [...] no significant delta change. ACS ruled out. Perinatal Breastfeeding Assistant is consulted. Repeat proBNP is elevated but it does not reflect treatment response as it should not be ordered for that. Clinically patient is feeling better with improvement in shortness of breath. 2D echo 03/05 reported EF 55%, PASP 42 mmHg with moderate TR, moderate NM and mild PI. 03/06: Furosemide changed to [...] conduction. Later on irregular variable conduction on ekg monitor tech 03/06: Discussed with the sales and service specialist. Metoprolol increased to 25 mg twice daily, [...] at the right lung base. Reading Location: [facility] Echocardiogram 03/04/25 20:08 Interpretation Summary Moderate [...] in right lung base aeration. Reading Location: [place] [address] Charges/Coding Visit Charges Inpatient E&M: 68834 Subs Hosp L2 03/06/25 1546 <Electronically signed by Deric Lantigua MD> Cosigner Signature (if applicable): CC: ~ Signed [facility] Work Phone: 1(528) 985-399707-18-2025 Progress note [facility] Medical Records Department [address] [place] [address] Progress Note - Hospitalist 03/06/25 1540 MR#: [id number] Acct: [id number] Name: PEDRO HILLMAN Rep #:[id number] : 1945 80 From: Deric Smith PCP: Dr. Tonio Fajardo, DO Status:ADM IN Location: [place] [address] Reason for Visit Chief Complaint: SOB. Objective [...] 03/05/25 14:17 SB (Rec: 03/05/25 14:17 SB [id number]) Nutrition Malnutrition Evidence of Yes Malnutrition Exists [...] is improved. Still in A-fib/flutter with heart [id number]. Shortness of breath is better. Did not [...] hematuria: (8) Atherosclerosis of coronary artery of holy cross heart without angina pectoris: QUALIFIERS: Coronary Disease-Associated Artery/Lesion type: nativeartery Qualified Code(s): I25.10 - Atherosclerotic heart disease of holy cross coronary artery without angina pectoris (9) Overweight [...] no significant delta change. ACS ruled out. Perinatal Breastfeeding Assistant is consulted. Repeat proBNP is elevated but it does not reflect treatment response as it should not be ordered for that. Clinically patient is feeling better with improvement in shortness of breath. 2D echo 03/05 reported EF 55%, PASP 42 mmHg with moderate TR, moderate NM and mild PI. 03/06: Furosemide changed to [...] conduction. Later on irregular variable conduction on ekg monitor tech 03/06: Discussed with the sales and service specialist. Metoprolol increased to 25 mg twice daily, Cardizem 60 mg [id number]. If heart rate controlled, will switch to [...] at the right lung base. Reading Location: [facility]--1 Echocardiogram 03/04/25 20:08 Interpretation Summary Moderate concentric [...] in right lung base aeration. Reading Location: [place] [address] Charges/Coding Visit Charges Inpatient E&M: 33408 Subs Hosp L2 03/06/25 1541 Cosigner Signature (if applicable): CC: ~ Signed [facility]07-18-2025 Consult note Author Marjorie Green [facility] Note Date/Time March 06, 2025 9:33 am [facility] Medical Records Department [address] [place] [address] Consultation - Cardiology 03/06/2526 MR#: [id number] Acct: [id number] Name: PEDRO HILLMAN Rep #:[id number] : 1945 80 From: Marjorie Green MD PCP: Dr. Tonio Fajardo, DO Status:ADM IN Location: [place] [address] Assessment & Plan Assessment/Plan (1) Atrial flutter [...] shortness of breath is much improved. [facility] Medical History (Updated 03/06/25 @ 09:[address] Marjorie Green MD) Other persistent atrial fibrillation New onset atrial flutter DIMA Wears hearing aid in both ears Former smoker Coronary artery disease Peripheral vascular occlusive disease BPH (benign prostatic hyperplasia) Chronic kidney disease, stage 3 Atherosclerosis of coronary artery of holy cross heart without angina pectoris Hyperlipidemia Lower extremity [...] applicable): CC: Dr. Tonio Fajardo, DO~ Signed [facility] Work Phone: 1(944) 140-897607-18-2025 Consult note [facility] Medical Records Department [address] [place] [address] Consultation - Cardiology 03/06/25925 MR#: [id number] Acct: [id number] Name: PEDRO HILLMAN Rep #:[id number] : 1945 80 From: Marjorie Green MD PCP: Dr. Tonio Fajardo DO Status:ADM IN Location: [place] [address] Assessment & Plan Assessment/Plan (1) Atrial flutter [...] shortness of breath is much improved. [facility] Medical History (Updated 03/06/25 @ 09:[address] Marjorie Green MD) Other persistent atrial fibrillation New onset atrial flutter COVID Wears hearing aid in both ears Former smoker Coronary artery disease Peripheral vascular occlusive disease BPH (benign prostatic hyperplasia) Chronic kidney disease, stage 3 Atherosclerosis of coronary artery of holy cross heart without angina pectoris Hyperlipidemia Lower extremity [...] applicable): CC: Dr. Tonio Fajardo, ~ Signed [facility]07-17-2025 Progress note Author Deric Lantigua [facility] Note Date/Time March 05, 2025 3:56 pm [facility] Medical Records Department [address] [place] [address] Progress Note - Hospitalist 03/05/25 0719 MR#: [id number] Acct: [id number] Name: PEDRO HILLMAN Nora Rep #:[id number] : 1945 80 From: Deric Smith PCP: Dr. Tonio Fajardo DO Status:ADM IN Location: [place] [address] Reason for Visit Chief Complaint: SOB. Objective [...] 78.1 H, Lymph % (Auto) 10.1 L, [place] % (Auto) 9.1, Eos % (Auto) 1.6, [...] Clarity Cloudy, Urine pH 6.5, Ur Specific Mckenney 1.010, Urine Protein 100 H, Urine Glucose [...] (Auto) 76.4 H, Lymph % (Auto) 9.5L, [place] % (Auto) 11.4 H, Eos % (Auto) [...] at the right lung base. Reading Location: [facility] Chest X-Ray 03/05/25 04:30 IMPRESSION: Small interval improvement in right lung base aeration. Reading Location: [place] [address] Rhythm Strip Rhythm Strip: Atrial flutter Rate: [...] hematuria: (8) Atherosclerosis of coronary artery of holy cross heart without angina pectoris: QUALIFIERS: Coronary Disease-Associated Artery/Lesion type: nativeartery Qualified Code(s): I25.10 - Atherosclerotic heart disease of holy cross coronary artery without angina pectoris (9) Overweight [...] pleural effusion and bibasilar atelectasis worse at [facility] lung base Maintain metoprolol and lisinopril as before. 03/04: Heart failure core measures including intake and output, fluid restrictionless than 1500 mL, daily weight monitoring, kidney and electrolytes monitoring. On furosemide 40 mg twice daily. Serial troponins 44, 45 and 42 therefore no significant delta change. ACS ruled out. Perinatal Breastfeeding Assistant is consulted. Repeat proBNP is elevated but it does not reflect treatment response as it should not be ordered for that. Clinically patient is feeling better with improvement in shortness of breath. 2D echo 03/05 reported EF 55%, PASP 42 mmHg with moderate TR, moderate NM and mild PI. 2. EKG evidence of Atrial Flutter; with Rapid Ventricular Response of ~117 bpm even after being treated with IV Cardizem bolus probably precipitating CHF exacerbation: Patient already on apixaban patient had digoxin. TSH 3.7 normal. Twelve-lead EKG individually reviewed and shows atrial flutter 2 is to 1 conduction. Later on irregular variable conduction on ekg monitor tech 3. CKD; stage IIIb with hyperkalemia, present [...] Clarity Cloudy, Urine pH 6.5, Ur Specific Mckenney 1.010, Urine Protein 100 H, Urine Glucose [...] (Auto) 76.4 H, Lymph % (Auto) 9.5L, [place] % (Auto) 11.4 H, Eos % (Auto) [...] at the right lung base. Reading Location: [facility] Echocardiogram 03/04/25 20:08 Interpretation Summary Moderate [...] in right lung base aeration. Reading Location: [place] [address] Charges/Coding Addendum Addendum: Total time of the [...] imagingis 35 minutes. Visit Charges Inpatient E&M: 25153 Subs Hosp L3 03/05/25 1556 <Electronically signed by Deric Lantigua MD> Cosigner Signature (if applicable): CC: ~ Signed [facility] Work Phone: 1(807) 391-917707-17-2025 Progress note [facility] Medical Records Department [address] [place] [address] Progress Note - Hospitalist 03/05/25 0719 MR#: [id number] Acct: [id number] Name: PEDRO HILLMAN Nora Rep #:[id number] : 1945 80 From: Deric Smith PCP: Dr. Tonio Fajardo, DO Status:ADM IN Location: [place] [address] Reason for Visit Chief Complaint: SOB. Objective [...] 78.1 H, Lymph % (Auto) 10.1 L, [place] % (Auto) 9.1, Eos % (Auto) 1.6, [...] Clarity Cloudy, Urine pH 6.5, Ur Specific Mckenney 1.010, Urine Protein 100 H, Urine Glucose [...] (Auto) 76.4 H, Lymph % (Auto) 9.5L, [place] % (Auto) 11.4 H, Eos % (Auto) [...] at the right lung base. Reading Location: [facility] Chest X-Ray 03/05/25 04:30 IMPRESSION: Small interval improvement in right lung base aeration. Reading Location: [place] [address] Rhythm Strip Rhythm Strip: Atrial flutter Rate: [...] hematuria: (8) Atherosclerosis of coronary artery of holy cross heart without angina pectoris: QUALIFIERS: Coronary Disease-Associated Artery/Lesion type: nativeartery Qualified Code(s): I25.10 - Atherosclerotic heart disease of [place] cross coronary artery without angina pectoris (9) Overweight [...] no significant delta change. ACS ruled out. Perinatal Breastfeeding Assistant is consulted. Repeat proBNP is elevated but it does not reflect treatment response as it should not be ordered for that. Clinically patient is feeling better with improvement in shortness of breath. 2D echo 03/05 reported EF 55%, PASP 42 mmHg with moderate TR, moderate NM and mild PI. 2. EKG evidence of Atrial Flutter; with Rapid Ventricular Response of ~117 bpm even after being treated with IV Cardizem bolus probably precipitating CHF exacerbation: Patient already on apixaban patient had digoxin. TSH 3.7 normal. Twelve-lead EKG individually reviewed and shows atrial flutter 2 is to 1 conduction. Later on irregular variable conduction on ekg monitor tech 3. CKD; stage IIIb with hyperkalemia, present [...] Clarity Cloudy, Urine pH 6.5, Ur Specific Mckenney 1.010, Urine Protein 100 H, Urine Glucose [...] (Auto) 76.4 H, Lymph % (Auto) 9.5L, [place] % (Auto) 11.4 H, Eos % (Auto) [...] at the right lung base. Reading Location: [facility]--1 Echocardiogram 03/04/25 20:08 Interpretation Summary Moderate concentric [...] in right lung base aeration. Reading Location: [place] [address] Charges/Coding Addendum Addendum: Total time of the [...] imagingis 35 minutes. Visit Charges Inpatient E&M: 16944 Subs Hosp L3 03/05/25 1558 Cosigner Signature (if applicable): CC: ~ Signed [facility]07-17-2025 History and physical note Author Nicola Madison [facility] Note Date/Time March 05, 2025 6:22 am [facility] Medical Records Department [address] [place] [address] H&P Exam - Hospitalist 03/04/251921 MR#: [id number] Acct: [id number] Name: PEDRO HILLMAN Rep #:[id number] : 1945 80 From: Nicola Levy DO PCP: Dr. Tonio Fajardo, Status:ADM IN Location: [place] [address] HPI - General General Date of Admission: [...] of COVID-19 and OA who presents to [facility] ER complaining of SOB. Mr. Hillman [...] ~53% with moderate mitral annular calcification and iuxf-dj-ejkihume (~1-2+) mitral valve insufficiency with a pulmonary [...] expected to extend beyond 2 midnights. [facility] Medical History Other persistent atrial fibrillation New onset atrial flutter COVID Wears hearing aid in both ears Former smoker Coronary artery disease Peripheral vascular occlusive disease BPH (benign prostatic hyperplasia) Chronic kidney disease, stage 3 Atherosclerosis of coronary artery of [place] cross heart without angina pectoris Hyperlipidemia Lower extremity [...] capsule 500 mg PO DAILY supplement 1 2/06/23 07/15/25 History docusate sodium 100 mg capsule 100 [...] 78.1 H, Lymph % (Auto) 10.1 L, [place] % (Auto) 9.1, Eos % (Auto) 1.6, [...] at the right lung base. Reading Location: [facility] Assessment & Plan Assessment/Plan (1) CHF exacerbation: QUALIFIERS: Heart failure type: unspecified Qualified Code(s): I50.9 - Heart failure, unspecified (2) Atrial flutter with rapid ventricular response: (3) Chronic anticoagulation: (4) Elevated troponin: (5) Hyperkalemia: (6) Pleural effusion on right: (7) Acute cystitis with hematuria: (8) Atherosclerosis of coronary artery of holy cross heart without angina pectoris: QUALIFIERS: Coronary Disease-Associated Artery/Lesion type: nativeartery Qualified Code(s): I25.10 - Atherosclerotic heart disease of holy cross coronary artery without angina pectoris (9) Overweight [...] LVEF. Serialize troponin. Finally, we will consult [facility] see this patient on rounds [...] 75 minutes. Charges/Coding Visit Charges Inpatient E&M: 14164 Init Hosp L3 03/05/25 0622 <Electronically signed by Nicola Lindsey DO> Cosigner Signature (if applicable): CC: Dr. Nicola Lindsey DO; Dr. Tonio Fajardo DO~ Signed [facility] Work Phone: 1(163) 855-950507-17-2025 History and physical note [facility] Medical Records Department [address] [place] [address] H&P Exam - Hospitalist 03/04/251921 MR#: [id number] Acct: [id number] Name: PEDRO HILLMAN Rep #:[id number] : 1945 80 From: Nicola Levy DO PCP: Dr. Tonio Fajardo DO Status:ADM [facility] HPI - General General Date of [...] of COVID-19 and OA who presents to [facility] ERcomplaining of SOB. Mr. Hillman reports [...] ~53% with moderate mitral annular calcification and cmaq-vd-yehisowz (~1-2+) mitral valve insufficiency with a pulmonary [...] expected to extend beyond 2 midnights. [facility] Medical History Other persistent atrial fibrillation New onset atrial flutter COVID Wears hearing aid in both ears Former smoker Coronary artery disease Peripheral vascular occlusive disease BPH (benign prostatic hyperplasia) Chronic kidney disease, stage 3 Atherosclerosis of coronary artery of holy cross heart without angina pectoris Hyperlipidemia Lower extremity [...] 78.1 H, Lymph % (Auto) 10.1 L, Washburn % (Auto) 9.1, Eos % (Auto) 1.6, [...] at the right lung base. 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 Serialize troponin. Finally, we will consult [facility] see this patient on rounds [...] 75 minutes. Charges/Coding Visit Charges Inpatient E&M: 87692 Init Hosp L3 03/05/25 0622 Cosigner Signature (if applicable): CC: Dr. Nicola Lindsey DO; Dr. Tonio Fajardo DO~ Signed [facility]07-17-2025 Radiology Diagnostic study note [facility] Imaging Services [address] [place], [place] [address] Chest 1 View (Portable) MR#: [id number] Acct: [id number] Name: PEDRO HILLMAN Rep #: [id number] : 1945 M 80 From: Regi Babb MD PCP: Dr. Tonio Fajardo DO Status: ADM IN Study:Chest 1 View (Portable) Date of Exam: 03/05/25 Exam# [id number] Ordering Dr: Nicola Mukherjee DO PROCEDURE: CHEST [...] in right lung base aeration. Reading Location: [facility]2 CC: Dr. Nicola Lindsey DO; Dr. Tonio Fajardo DO ~ Geologist: Signed [facility]07-16-2025 Evaluation note* Diagnosis Onset Date Resolution [...] 042024 7:57pm Atherosclerosis of coronary artery of holy cross heart without angina pectoris chronic March 04, 2025 7:57pm CHF exacerbation chronic February 7:57pm Hypertension chronic March 04, 025 7:57pm [facility] Work Phone: 1(591) 230-831907-16-2025 Evaluation note* Diagnosis Onset Date Resolution Status Admit Date Acute cystitis with hematuria acute March 04, 2025 7:57pm Atrial flutter with rapid ventricular response acute March 04, 2025 7:57pm Chronic anticoagulation acute 2024 7:57pm Coronary artery disease acute 2024 7:57pm Diabetes acute March 04 7:57pm Elevated troponin acute March 042024 7:57pm Hyperkalemia acute March 04 2 025 7:57pm Mitral valve regurgitation acute March 04, 2025 7:57pm Other persistent atrial fibrillation acute March 04, 2025 7:57pm Overweight (BMI 25.0-29.9) acute March 04, 2025 7:57pm Pleural effusion on right acute March 04, 2025 7:57pm Tricuspid valve regurgitation acute March 04, 2025 7:57pm Acute on chronic diastolic congestive heart failure chronic March 042024 7:57pm Atherosclerosis of coronary artery of holy cross heart without angina pectoris chronic March 04, [...] by pass graft 2012March 17, 2025 12:51pm [facility] Work Phone: 1(242) 811-304907-16-2025 Evaluation note* Diagnosis Onset Date Resolution Status Admit Date Acute cystitis with hematuria acute March 04, 2025 7:57pm Atrial flutter with rapid ventricular response acute March 04, 2025 7:57pm Chronic anticoagulation acute 2024 7:57pm Coronary artery disease acute J [facility] 2024 7:57pm Diabetes acute March 04 7:57pm [...] 042024 7:57pm Atherosclerosis of coronary artery of holy cross heart without angina pectoris chronic March 04, [...] aortocoronary by pass graft 2012April 05 7:55pm [facility] Work Phone: 1(150) 184-211807-16-2025 Evaluation note* Diagnosis Onset Date Resolution Status [...] 042024 7:57pm Atherosclerosis of coronary artery of holy cross heart without angina pectoris chronic March 04, 2025 7:57pm CHF exacerbation chronic February 7:57pm Hypertension chronic March 04 025 7:57pm Peripheral arterial disease inactive March 04, 2025 7:57pm Other persistent atrial fibrillation acute March 17, 2025 12:51pm Hyperlipidemia chronic March 17, 2025 12:51pm Hypertension chronic March 17 025 12:51pm Peripheral vascular occlusiv e disease chronic March 17, 2025 12:51pm 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March 17, 2025 12:51pm Acute cystitis without hematuria [...] cardiac pacemaker acute April 10, 2025 11:14am [facility] Work Phone: 1(863) 959-992507-16-2025 Evaluation note* Diagnosis Onset Date Resolution Status Admit Date Acute cystitis with hematuria acute March 04, 2025 7:57pm Atrial flutter with rapid ventricular response acute March 04, 2025 7:57pm Chronic anticoagulation acute J shanda2024 7:57pm Coronary artery disease acute J shanda2024 7:57pm Diabetes acute March 04 7:57pm [...] 042024 7:57pm Atherosclerosis of coronary artery of holy cross heart without angina pectoris chronic March 04, [...] cardiac pacemaker acute April 10, 2025 11:14am Acute heart failure with preserved ejection fraction (HFpEF) acute April 10 6:33pm Acute respiratory failure wi th hypoxia acute April 10 6:33pm DARIUSZ (acute kidney injury) acute April 10, 2025 6:33pm Atrial fibrillation acute Augus t 2024 6:33pm BPH (benign prostatic hyperplasia) acute April 10 6:33pm Chronic kidney disease, stage 3b acu te April 10, 2025 6:33pm Debility acute April 10 6:33pm History of lung cancer acute [place] 2024 6:33pm Pleural effusion on right acute April 10, 2025 6:33pm Tachy-brittany syndrome acute Augu st 2024 6:33pm Type 2 diabetes mellitus wit h hyperglycemia acute April 10 6:33pm COPD (chronic obstructive pulmonary disease) chronic April 10, 2025 6:33pm Hyperlipidemia chronic March 6:33pm UTI (urinary tract infection) resolv ed April 10, 2025 6:33pm [facility] Work Phone: 1(175) 990-269107-16-2025 Discharge summary Author Chris Ochoa [facility] Note Date/Time March 04, 2025 7:26 pm [facility] Medical Records Department [address] [place] [address] Emergency Department Summary 03/04/25 MR#: [id number] Acct: [id number] Name: PEDRO HILLMAN Rep #:[id number] : 1945 80 From: Chris Ochoa MD [...] stage 3 Atherosclerosis of coronary artery of holy cross heart without angina pectoris Hyperlipidemia Lower extremity [...] signs. Back nontender. Movingall 4 extremities. Normal woolen tester strength. Calves nontender without edema or cords. [...] 78.1 H Lymph % (Auto) 10.1 L Washburn % (Auto) 9.1 Eos % (Auto) 1.6 [...] at the right lung base. Reading Location: [place] [address] Chest x-ray, 2 views, AP and lateral, [...] Chronic anticoagulation Disposition Disposition: Acute Care Hospital [facility] What to do if you have Problems For any increased pain, shortness of breath, bleeding, nausea or vomiting, chestpain, or any unexpected problems, contact your Primary Care Provider. Call [facility] ([phone]) or report to the closest Emergency Room. Call 911 if necessary. 03/04/251925 <Electronically signed by Chris Ochoa MD> Cosigner Signature (if applicable): CC: Dr. Tonio Fajardo, DO ~ Signed [facility] Work Phone: 1(311) 545-407407-16-2025 Discharge summary [facility] Medical Records Department [address] [place] [address] Emergency Department Summary 03/04/25 MR#: [id number] Acct: [id number] Name: PEDRO HILLMAN Rep #:[id number] : 1945 80 From: Chris Ochoa MD [...] stage 3 Atherosclerosis of coronary artery of holy cross heart without angina pectoris Hyperlipidemia Lower extremity [...] signs. Back nontender. Movingall 4 extremities. Normal woolen tester strength. Calves nontender without edema or cords. [...] 78.1 H Lymph % (Auto) 10.1 L Washburn % (Auto) 9.1 Eos % (Auto) 1.6 [...] at the right lung base. [facility] Chest x-ray, 2 views, AP and lateral, [...] Chronic anticoagulation Disposition Disposition: Acute Care Hospital [facility] What to do if you have Problems For any increased pain, shortness of breath, bleeding, nausea or vomiting, chestpain, or any unexpected problems, contact your Primary Care Provider. Call [facility] ([phone]) or report tothe closest Emergency Room. Call 911 if necessary. 03/04/251925 Cosigner Signature (if applicable): CC: Dr. Tonio Fajardo, ~ Signed [facility]07-16-2025 Radiology Diagnostic study note [facility] Imaging Services [address] [place], [place] [address] Chest PA and Lateral MR#: [id number] Acct: [id number] Name: PEDRO HILLMAN Rep #: [id number] : 1945 M 80 From: Tom Flores MD PCP: Dr. Tonio Fajardo DO Status: PRE ER Study:Chest PA and Lateral Date of Exam: 03/04/25 Exam# [id number] Ordering Dr: Camila Ochoa MD PROCEDURE: CHEST [...] at the right lung base. Reading Location: [place] [address] CC: Dr. Chris Ochoa MD; Dr. Tonio Fajardo DO ~ Geologist: Signed [facility]07-16-2025 Discharge summary Author Chris Ochoa [facility] Note Date/Time March 04, 2025 7:26 pm [facility] Medical Records Department [address] [place] [address] Emergency Department Summary 03/04/25 MR#: [id number] Acct: [id number] Name: PEDRO HILLMAN Rep #:[id number] : 1945 80 From: Chris Ochoa MD [...] stage 3 Atherosclerosis of coronary artery of holy cross heart without angina pectoris Hyperlipidemia Lower extremity [...] signs. Back nontender. Movingall 4 extremities. Normal woolen tester strength. Calves nontender without edema or cords. [...] 78.1 H Lymph % (Auto) 10.1 L Washburn % (Auto) 9.1 Eos % (Auto) 1.6 [...] at the right lung base. [facility] Chest x-ray, 2 views, AP and lateral, [...] Chronic anticoagulation Disposition Disposition: Acute Care Hospital [facility] What to do if you have Problems For any increased pain, shortness of breath, bleeding, nausea or vomiting, chestpain, or any unexpected problems, contact your Primary Care Provider. Call [facility] ([phone]) or report to the closest Emergency Room. Call 911 if necessary. 03/04/251925 <Electronically signed by Chris Ochoa MD> Cosigner Signature (if applicable): CC: Dr. 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 Marlon h 2024 1:24pm Atrial flutter with rapid ventricular response acute March 04, 2025 7:57pm Chronic anticoagulation acute J shanda2024 7:57pm Elevated troponin acute March 042024 7:57pm Hyperkalemia acute March 04, 025 7:57pm Overweight (BMI 25.0-29.9) acute March 04, 2025 7:57pm Pleural effusion on right acute March 04, 2025 7:57pm Atherosclerosis of coronary artery of holy cross heart without angina pectoris chronic March 04, 2025 7:57pm CHF exacerbation chronic February 7:57pm [facility] Work Phone: 1(364) 727-242003-13-2025 Radiology Diagnostic study note [facility] Imaging Services [address] [place], [place] [id number] [address] Chest AND Abd W/ Contrast MR#: [id number] Acct: [id number] Name: PEDRO HILLMAN Rep #: [id number] : 1945 M 79 From: Tom Flores MD PCP: Dr. Tonio Fajardo, DO Status: REG CLI Study:CT Chest AND Abd W/ Contrast Date of Ex am: 10/30/24 Exam# [id number] Ordering Dr: Frantz Zamora MD PROCEDURE: CT [...] use of iterative reconstruction technique). Reading Location: [id number] CC: Dr. Russ Zamora MD; Dr. Tonio Fajardo DO ~ Geologist: Signed [facility]02-28-2025 Procedure notey [facility] Pulmonary Services/Neurology [address] [place] [address] MR#: [id number] Acct: [id number] Name: PEDRO HILLMAN Rep #:[id number] : 1945 79 From: Tyrell Uriarte DO Referring Dr: Lorie Mart FAST FOOD CASHIER FAST FOOD CASHIER-C Status: REG CLI Location: PSN Date: Sex: M C PSN 6 Minute Walk Test 6 Minute Walk Test 6 Minute Walk Test: 6 Minute Walk Test PSN:6-Minute Walk Test Start: 10/16/24 13:24 Freq: Status: Active Protocol: RESP.6MINW Document 10/16/24 13:24 [facility] (Rec: 10/16/24 13:34 [facility] [id number]) 6 Minute Walk Test Date Performed 10/16/24 [...] Tyrell Uriarte DO CC: ~ Date Dictated: 10/17/241003 Date Transcribed: 10/17/241003 Geologist: Dr. Tyrell Uriarte, DO Signed [facility]02-06-2025 Evaluation note* Diagnosis Onset Date [...] right lung chronic Marlon h 2024 2:10pm [facility] Work Phone: 1(223) 375-918702-06-2025 Evaluation note* Diagnosis Onset Date Resolution Status [...] right lung chronic Marlon h 2024 1:24pm [facility] Work Phone: 1(255) 955-514010-20-[address] [facility] 04-18-2023 Progress note Author Joaquim Suárez [facility] April 18, 2023 7:12pm Note Date/Time April 18, 2023 3: 56pm [facility] [address] [place] [address] Progress Note - Wound Care 04/18/23 1549 MR#: [id number] Acct: [id number] Name: PEDRO HILLMAN Rep #:[id number] : 1945 78 From: Joaquim Smith PM [...] Start: 04/02/23 11:22 Freq: Status: Active Protocol: WC.LOWEXT Activity Type Activity Date Activity User E-sign Co-sign Detail Recorded Client Recorded Date Recorded By Document 04/02/23 11:24 PL [id number] 04/02/23 11:25 PL Document 04/18/23 13:24 [facility] [id number] 04/18/23 13:30 [facility] 04/02/23 04/18/23 11:24 13:24 - Today's Visit Information Type of service Follow-up Visit Follow-up Visit (Physician/ULTRASOUND TECHNOLOGIST (Physician/ULTRASOUND TECHNOLOGIST ) ) Arrival Mode Ambulatory,Cane Ambulatory,Cane Transfer [...] Recorded Date Recorded By Document 04/18/23 13:24 [facility] [id number] 04/18/23 13:30 [facility] 04/18/23 13:24 Wound Center Nurse 1 [...] Attached -Granulation Amt Large (67-100%) -Granulation Quality [place]utherlin -Slough/Fibrin No -Necrosis Amt None Present (0 [...] Recorded Date Recorded By Document 04/02/23 11:42 [id number] 04/02/23 11:53 Document 04/18/23 14:03 [id number] 04/18/23 14:04 04/02/23 04/18/23 11:42 14:03 Wound [...] Recorded Date Recorded By Document 04/02/23 11:54 JF [id number] 04/02/23 11:54 JF Document 04/18/23 14:24 RB [id number] 04/18/23 14:25 RB 04/02/23 04/18/23 11:54 14:24 [...] Discussion, Demonstration -Response to teaching Verbalize understanding - Visit Discharge Discharge Condition Stable Stable Ambulatory Status Ambulatory,Cane Ambulatory Transportation Private Auto Private Auto Accompanied by LUPE Medication Reconcilliation completed & Yes No provided to patient/care provider Clinical Summary of Care Provided Yes Yes Assessment/Plan Assessment/Plan (1) Type 2 diabetes mellitus with diabetic polyneuropathy: CODE(S): E11.42 - Type 2 diabetes mellitus with diabetic polyneuropathy QUALIFIERS: Diabetes mellitus penitentiary insulin use: with machine operator hop worker use Qualified Code(s): E11.42 - Type 2 diabetes mellitus with diabetic polyneuropathy; Z79.4 - jail (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 of insulin PLAN: Educated the [...] Cosigner Signature (if applicable): CC: ~ Signed [facility] Work Phone: 1(341) 401-293508-20-2023 Progress note Author Bonny Glynn [facility] April 07, 2023 10:44pm Note Date/Time April 02, 2023 12 :35pm [facility] [address] [place] [address] Progress Note - Wound Care 04/02/23 1235 MR#: [id number] Acct: [id number] Name: PEDRO HILLMAN Rep #:[id number] : 1945 78 From: Bonny garcia FAST FOOD CASHIER FAST FOOD CASHIER-C PCP: Dr. Tonio Fajardo, DO Status:REG RCR [...] 11:24 04/02/23 11:24 Charges/Coding Procedures Integumentary 111xxx-113xx: 14151 Mihaela subq tissue 20 sq cm/< Debridement [...] Date Recorded By Document 04/02/23 11:24 KIM [id number] 04/02/23 11:25 KIM 04/02/23 11:24 - Today's Visit Information Type of service Follow-up Visit (Physician/ULTRASOUND TECHNOLOGIST ) Arrival Mode Ambulatory,Cane Transfer Assistance None [...] Recorded Date Recorded By Document 04/02/23 11:42 [id number] 04/02/23 11:53 04/02/23 11:42 Wound Center Nurse [...] Date Recorded By Document 04/02/23 11:54 DORA [id number] 04/02/23 11:54 DORA 04/02/23 11:54 Wound Care Center Nurse 3 [...] that the wound center will have a 1st pressman, will have the patient see him for further evaluation and treatment. Follow up two weeks. Call or come in sooner if develop any questions or concerns. 04/07/23 8488 <Electronically signed by Bonny Glynn NP FAST FOOD CASHIER-C> Cosigner Signature (if applicable): CC: ~ Signed [facility] Work Phone: 1(662) 317-813607-17-2023 Progress note Author Bonny Renard [facility] March 05, 2023 1:06pm Note Date/Time March 05, 2023 12:2 9pm [facility] [address] [place] [address] Progress Note - Wound Care 03/05/23 1226 MR#: [id number] Acct: [id number] Name: PEDRO HILLMAN Rep #:[id number] : 1945 78 From: Bonny garcia 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 Tonio Fajardo, DO Status:REG RCR [...] Method Room Air Charges/Coding Procedures Integumentary 111xxx-113xx: 33886 Mihaela subq tissue 20 sq cm/< Debridement [...] Recorded Date Recorded By Document 02/19/23 13:34 [id number] 02/19/23 13:36 Document 03/05/23 11:26 KW [id number] 03/05/23 11:29 KW 02/19/23 03/05/23 13:34 11:26 - Today's Visit Information Type of service Follow-up Visit Follow-up Visit (Physician/ULTRASOUND TECHNOLOGIST (Physician/ULTRASOUND TECHNOLOGIST ) ) Arrival Mode Ambulatory Ambulatory,Cane Accompanied [...] Recorded Date Recorded By Document 02/19/23 13:34 [id number] 02/19/23 13:36 Document 03/05/23 11:26 [id number] 03/05/23 11:29 KW 02/19/23 03/05/23 13:34 11:26 [...] Large (67-100%) Small (1-33%) -Granulation Quality Red [place] -Slough/Fibrin No -Necrosis Amt Small (1-33%) -Structure [...] Recorded Date Recorded By Document 02/19/23 13:37 [id number] 02/19/23 13:39 Document 03/05/23 11:37 [id number] 03/05/23 11:46 02/19/23 03/05/23 13:37 11:37 Wound [...] Date Recorded By Document 02/19/23 13:43 MW [id number] 02/19/23 13:44 MW Document 03/05/23 11:53 BM [id number] 03/05/23 11:55 BMF 02/19/23 03/05/23 13:43 11:53 [...] if develop any questions or concerns. 03/05/23 6154 <Electronically signed by Bonny Glynn NP FAST FOOD CASHIER-C> Cosigner Signature (if applicable): CC: ~ Signed [facility] Work Phone: 1(267) 956-833307-03-2023 Progress note Author Bonny Glynn [facility] February 19, 2023 2:23pm Note Date/Time February 19, 2023 2:16p m [facility] [address] [place] [address] Progress Note - Wound Care 02/19/23 1412 MR#: [id number] Acct: [id number] Name: PEDRO HILLMAN Rep #:[id number] : 1945 78 From: Bonny garcia 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 Tonio Fajardo, DO Status:REG RCR [...] 13:34 02/19/23 13:34 Charges/Coding Procedures Integumentary 111xxx-113xx: 29148 Mihaela subq tissue 20 sq cm/< Debridement [...] Date Recorded By Document 02/19/23 13:34 DORA [id number] 02/19/23 13:36 DORA 02/19/23 13:34 - Today's Visit Information Type of service Follow-up Visit (Physician/ULTRASOUND TECHNOLOGIST ) Arrival Mode Ambulatory Patient Requires Transmission-Based [...] Date Recorded By Document 02/19/23 13:34 DORA [id number] 02/19/23 13:36 DORA 02/19/23 13:34 Wound Center [...] Date Recorded By Document 02/19/23 13:37 DORA [id number] 02/19/23 13:39 DORA 02/19/23 13:37 Wound Center [...] Date Recorded By Document 02/19/23 13:43 MW [id number] 02/19/23 13:44 MW 02/19/23 13:43 Wound Care [...] of his foot. Vascular:? 12/19/21 - Right EULALAI - 1.15, Left EULALIA 1.06.? Right digital [...] 1423 <Electronically signed by Bonny Glynn NP FAST FOOD CASHIER-C> Cosigner Signature (if applicable): CC: ~ Signed [facility] Work Phone: 1(454) 424-227606-19-2023 Progress note Author Bonnyparris Glynn [facility] February 05, 2023 2:37pm Note Date/Time February 05, 2023 1:59 pm [facility] [address] [place] [address] Progress Note - Wound Care 02/05/23 1359 MR#: [id number] Acct: [id number] Name: PEDRO HILLMAN Rep #:[id number] : 1945 78 From: Bonny garcia 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 Tonio Fajardo, DO Status:REG R Location: History of Present Illness Date of Service: 02/05/23 Chief Complaint: right medial foot ulcer History of Wound: This 78-year-old male returns to the wound healing clinic for reoccurrence of a right medial foot ulcer. Wound care has been Moistened Cass covered with Victor SAP dressing. Patient diabetic neuropathic. Patient dealing [...] Method Room Air Charges/Coding Procedures Integumentary 111xxx-113xx: 67575 Mihaela subq tissue 20 sq cm/< Debridement [...] Start: 01/22/23 13:42 Freq: Status: Active Protocol: .LOWPATRICA Activity Type Activity Date Activity User E-sign Co-sign Detail Recorded Client Recorded Date Recorded By Document 01/22/23 13:45 DL [id number] 01/22/23 13:48 DL Document 02/05/23 13:10 [facility] [id number] 02/05/23 13:15 BMF 01/22/23 02/05/23 13:45 13:10 - Today's Visit Information Type of service Follow-up Visit Follow-up Visit (Physician/ULTRASOUND TECHNOLOGIST (Physician/ULTRASOUND TECHNOLOGIST ) ) Arrival Mode Ambulatory Ambulatory,Cane Transfer [...] Date Recorded By Document 01/22/23 13:45 DL [id number] 01/22/23 13:48 DL Document 02/05/23 13:10 [facility] [id number] 02/05/23 13:15 [facility] 01/22/23 02/05/23 13:45 13:10 Wound Center [...] Present (0 Large (67-100%) %) -Granulation Quality [place] -Slough/Fibrin Yes -Necrosis Amt Small (1-33%) Small [...] Recorded Date Recorded By Document 01/22/23 14:22 [id number] 01/22/23 14:23 01/22/23 14:22 Wound Center Nurse [...] Date Recorded By Document 01/22/23 14:30 DL [id number] 01/22/23 14:31 DL Document 02/05/23 13:49 BMF [id number] 02/05/23 13:49 BMF 01/22/23 02/05/23 14:30 13:49 [...] if develop any questions or concerns. 02/05/23 7917 <Electronically signed by Bonny Glynn NP FAST FOOD CASHIER-C> Cosigner Signature (if applicable): CC: ~ Signed [facility] Work Phone: 1(226) 404-975606-05-2023 Progress note Author Bonnyparris Glynn [facility] January 22, 2023 3:47pm Note Date/Time January 22, 2023 3:31p m [facility] [address] [place] [address] Progress Note - Wound Care 01/22/23 1529 MR#: [id number] Acct: [id number] Name: PEDRO HILLMAN Rep #:[id number] : 1945 78 From: Bonny garcia 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 Tonio Fajardo, DO Status:REG RCR Location: History of Present Illness Date of Service: 01/22/23 Chief Complaint: right medial foot ulcer History of Wound: This 78-year-old male returns to the wound healing clinic for reoccurrence of a right medial foot ulcer. Wound care has been Moistened Cass covered with Victor SAP dressing. Patient diabetic neuropathic. Patient dealing [...] 13:45 01/22/23 13:45 Charges/Coding Procedures Integumentary 111xxx-113xx: 88485 Mihaela subq tissue 20 sq cm/< Debridement [...] Start: 01/22/23 13:42 Freq: Status: Active Protocol: URBAN.LOWEXT Activity Type Activity Date Activity User E-sign Co-sign Detail Recorded Client Recorded Date Recorded By Document 01/22/23 13:45 DL [id number] 01/22/23 13:48 DL 01/22/23 13:45 - Today's Visit Information Type of service Follow-up Visit (Physician/ULTRASOUND TECHNOLOGIST ) Arrival Mode Ambulatory Transfer Assistance None [...] Date Recorded By Document 01/22/23 13:45 DL [id number] 01/22/23 13:48 DL 01/22/23 13:45 Wound Center [...] Recorded Date Recorded By Document 01/22/23 14:22 [id number] 01/22/23 14:23 01/22/23 14:22 Wound Center Nurse [...] Date Recorded By Document 01/22/23 14:30 DL [id number] 01/22/23 14:31 DL 01/22/23 14:30 Wound Care [...] if develop any questions or concerns. 01/22/23 3305 <Electronically signed by Bonny Glynn NP FAST FOOD CASHIER-C> Cosigner Signature (if applicable): CC: ~ Signed [facility] Work Phone: 1(961) 171-432505-22-2023 Progress note Author Bonny Glynn [facility] January 08, 2023 2:17pm Note Date/Time January 08, 2023 2:10p m [facility] [address] [place] [address] Progress Note - Wound Care 01/08/23 1407 MR#: [id number] Acct: [id number] Name: PEDRO HILLMAN Rep #:[id number] : 1945 77 From: Bonyn garcia FAST FOOD CASHIER FAST FOOD CASHIER-C PCP: Dr. Tonio Fajardo, DO Status:REG RCR Location: History of Present Illness Date of Service: 01/08/23 Chief Complaint: right medial foot ulcer History of Wound: This 77-year-old male returns to the wound healing clinic for reoccurrence of a right medial foot ulcer. Wound care has been Moistened Cass covered with Victor SAP dressing. Patient diabetic neuropathic. Patient dealing [...] 14:53 01/08/23 13:37 Charges/Coding Procedures Integumentary 111xxx-113xx: 75354 Mihaela subq tissue 20 sq cm/< Debridement [...] Date Recorded By Document 12/18/22 13:20 PL [id number] 12/18/22 13:27 PL Document 12/25/22 14:53 JF [id number] 12/25/22 14:54 JF Document 01/08/23 13:37 AK [id number] 01/08/23 13:39 AK 12/18/22 12/25/22 01/08/23 13:20 14:53 13:37 - Today's Visit Information Type of service Follow-up Visit Follow-up Visit Follow-up Visit (Physician/ULTRASOUND TECHNOLOGIST (Physician/ULTRASOUND TECHNOLOGIST (Physician/ULTRASOUND TECHNOLOGIST ) ) ) Arrival Mode Ambulatory Ambulatory [...] Date Recorded By Document 12/18/22 13:20 PL [id number] 12/18/22 13:27 PL Document 12/25/22 14:53 JF [id number] 12/25/22 14:54 JF Document 01/08/23 13:37 AK [id number] 01/08/23 13:39 AK 12/18/22 12/25/22 01/08/23 13:20 [...] (34-66%) Small (1-33%) Medium (34-66%) -Granulation Quality Sutherlin Pale -Slough/Fibrin No Yes Yes -Necrosis Amt [...] Recorded Date Recorded By Document 12/18/22 13:51 [id number] 12/18/22 13:53 Document 12/25/22 15:00 [id number] 12/25/22 15:10 Document 01/08/23 14:01 [id number] 01/08/23 14:02 12/18/22 12/25/22 01/08/23 13:51 15:00 [...] Date Recorded By Document 12/18/22 14:07 PL [id number] 12/18/22 14:07 PL Document 12/25/22 15:20 DL [id number] 12/25/22 15:20 DL 12/18/22 12/25/22 14:07 15:20 [...] 1417 <Electronically signed by Bonny Glynn NP FAST FOOD CASHIER-C> Cosigner Signature (if applicable): CC: ~ Signed [facility] Work Phone: 1(226) 830-215505-14-[address] Ochoa [facility] December 31, 2022 12:58am Note Date/Time December 30, 2022 11:08 pm [facility] Medical Records Department [address] [place] [address] Emergency Department Summary 12/30/22 MR#: [id number] Acct: [id number] Name: PEDRO HILLMAN Rep #:[id number] : 1945 77 From: Chris Ochoa MD [...] similar symptoms: Yes Recent Illness/Hospitalization: No [facility] Medical History Anemia Atherosclerosis of coronary artery of holy cross heart without angina pectoris BPH (benign prostatic [...] extremities. Nontender. No edema. No cellulitis. Normal woolen tester strength. Normal dorsi plantarflexion. Neurologically is awake [...] 83.3 H Lymph % (Auto) 6.4 L Washburn % (Auto) 9.1 Eos % (Auto) 0.2 [...] Color Urine Clarity Urine pH Ur Specific Mckenney Urine Protein Urine Glucose (UA) Urine Ketones Urine Occult Blood Urine Nitrite Urine Bilirubin Urine Urobilinogen Ur Leukocyte Esterase Urine RBC Urine WBC Ur Squamous Epith Cells Urine Bacteria Urine Mucus 12/30/22 12/30/22 22:50 23:59 WBC RBC Hgb Hct MCV MCH MCHC RDW Std Deviation RDW Coeff of Reggie Plt Count MPV Immature Gran % (Auto) Neut % (Auto) Lymph % (Auto) Washburn % (Auto) Eos % (Auto) Baso % [...] Clarity Clear Urine pH 7.0 Ur Specific Mckenney 1.005 Urine Protein 100 H Urine Glucose [...] 0:41 EDT Reading Location ID and State: [facility] / [place] Tel , Service support , Chest x-ray, [...] your Primary Care Provider. Call [facility] ([phone]) or report to the closest Emergency Room. Call 911 if necessary. 12/31/22 0058 <Electronically signed by Chris Ochoa MD> Cosigner Signature (if applicable): CC: Dr. Tonio Fajardo DO ~ Signed [facility] Work Phone: [phone]) 758-664505-08-2023 Progress note Author Bonny Glynn [facility] December 25, 2022 3:36pm Note Date/Time December 25, 2022 3:36pm [facility] [address] [place] [address] Progress Note - Wound Care 12/25/22 1531 MR#: [id number] Acct: [id number] Name: PEDRO HILLMAN Rep #:[id number] : 1945 77 From: Bonny Gillis FAST FOOD CASHIER FAST FOOD CASHIER-C PCP: Dr. Tonio Fajardo DO Status:REG RCR Location: History of Present Illness Date of Service: 12/25/22 Chief Complaint: right medial foot ulcer History of Wound: This 77-year-old male returns to the wound healing clinic for reoccurrence of a right medial foot ulcer. Wound care has been Moistened Cass covered with Victor SAP dressing. Patient diabetic neuropathic. Patient dealing [...] 14:53 12/25/22 14:53 Charges/Coding Procedures Integumentary 111xxx-113xx: 99865 Mihaela subq tissue 20 sq cm/< Debridement [...] Date Recorded By Document 12/18/22 13:20 PL [id number] 12/18/22 13:27 PL Document 12/25/22 14:53 [id number] 12/25/22 14:54 12/18/22 12/25/22 13:20 14:53 - Today's Visit Information Type of service Follow-up Visit Follow-up Visit (Physician/ULTRASOUND TECHNOLOGIST (Physician/ULTRASOUND TECHNOLOGIST ) ) Arrival Mode Ambulatory Ambulatory Transfer [...] Date Recorded By Document 12/18/22 13:20 PL [id number] 12/18/22 13:27 PL Document 12/25/22 14:53 [id number] 12/25/22 14:54 12/18/22 12/25/22 13:20 14:53 Wound [...] Amt Medium (34-66%) Small (1-33%) -Granulation Quality Sutherlin -Slough/Fibrin No Yes -Necrosis Amt Medium (34-66%) [...] Recorded Date Recorded By Document 12/18/22 13:51 [id number] 12/18/22 13:53 Document 12/25/22 15:00 [id number] 12/25/22 15:10 12/18/22 12/25/22 13:51 15:00 Wound [...] Date Recorded By Document 12/18/22 14:07 PL [id number] 12/18/22 14:07 PL Document 12/25/22 15:20 DL [id number] 12/25/22 15:20 DL 12/18/22 12/25/22 14:07 15:20 [...] if develop any questions or concerns. 12/25/22 9387 <Electronically signed by Bonny E Renard FAST FOOD CASHIER FAST FOOD CASHIER-C> Cosigner Signature (if applicable): CC: ~ Signed [facility] Work Phone: [phone]) 646-829205-01-2023 Progress note Author Bonny Glynn [facility] December 18, 2022 2:23pm Note Date/Time December 18, 2022 2:23pm [facility] [address] [place] [address] Progress Note - Wound Care 12/18/22 1419 MR#: [id number] Acct: [id number] Name: PEDRO HILLMAN Rep #:[id number] : 1945 77 From: Bonny garcia FAST FOOD CASHIER FAST FOOD CASHIER-C PCP: Dr. Tonio Fajardo, DO Status:REG RCR Location: History of Present Illness Date of Service: 12/18/22 Chief Complaint: right medial foot ulcer History of Wound: This 77-year-old male returns to the wound healing clinic for reoccurrence of a right medial foot ulcer. Wound care has been Moistened Cass covered with Victor SAP dressing. Patient diabetic neuropathic. Patient dealing [...] 13:20 12/18/22 13:20 Charges/Coding Procedures Integumentary 111xxx-113xx: 59146 Mihaela subq tissue 20 sq cm/< Debridement [...] Date Recorded By Document 12/18/22 13:20 KIM [id number] 12/18/22 13:27 PL 12/18/22 13:20 WC - Today's Visit Information Type of service Follow-up Visit (Physician/ULTRASOUND TECHNOLOGIST ) Arrival Mode Ambulatory Transfer Assistance None [...] Date Recorded By Document 12/18/22 13:20 PL [id number] 12/18/22 13:27 PL 12/18/22 13:20 Wound Center [...] Serosanguineous -Granulation Amt Medium (34-66%) -Granulation Quality Sutherlin -Slough/Fibrin No -Necrosis Amt Medium (34-66%) -Necrotic [...] Recorded Date Recorded By Document 12/18/22 13:51 [id number] 12/18/22 13:53 DORA 12/18/22 13:51 Wound Center [...] Date Recorded By Document 12/18/22 14:07 PL [id number] 12/18/22 14:07 PL 12/18/22 14:07 Wound Care [...] 1423 <Electronically signed by Bonny Glynn NP FAST FOOD CASHIER-C> Cosigner Signature (if applicable): CC: ~ Signed [facility] Work Phone: 1([phone]) 322-281204-27-2023 Progress note Author Bonny Glynn [facility] December 14, 2022 2:56pm Note Date/Time December 11, 2022 3:2 7pm [facility] [address] [place] [address] Progress Note - Wound Care 12/11/22 1527 MR#: [id number] Acct: [id number] Name: PEDRO HILLMAN Rep #:[id number] : 1945 77 From: Bonny garcia 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 Tonio Fajardo, DO Status:REG RCR Location: History of Present Illness Date of Service: 12/11/22 Chief Complaint: right medial foot ulcer History of Wound: This 77-year-old male returns to the wound healing clinic for reoccurrence of a right medial foot ulcer. Wound care has been Moistened Cass covered with Victor SAP dressing. Patient diabetic neuropathic. Patient dealing [...] Method Room Air Charges/Coding Procedures Integumentary 111xxx-113xx: 86263 Mihaela subq tissue 20 sq cm/< Debridement [...] Date Recorded By Document 11/20/22 14:43 DL [id number] 11/20/22 14:49 DL Document 11/27/22 14:25 [facility] [id number] 11/27/22 14:27 [facility] Document 12/06/22 11:35 DL [id number] 12/06/22 11:39 DL Document 12/11/22 13:12 [facility] [id number] 12/11/22 13:21 [facility] 11/20/22 11/27/22 12/06/22 14:43 14:25 11:35 - Today's Visit Information Type of service Follow-up Visit Follow-up Visit (Physician/ULTRASOUND TECHNOLOGIST (Physician/ULTRASOUND TECHNOLOGIST ) ) Arrival Mode Ambulatory,Cane Ambulatory Transfer [...] Visit Information Type of service Follow-up Visit (Physician/ULTRASOUND TECHNOLOGIST ) Arrival Mode Ambulatory,Cane Transfer Assistance None [...] Date Recorded By Document 11/20/22 14:43 DL [id number] 11/20/22 14:49 DL Document 11/27/22 14:25 BMF [id number] 11/27/22 14:27 BMF Document 12/06/22 11:35 DL [id number] 12/06/22 11:39 DL Document 12/11/22 13:12 BMF [id number] 12/11/22 13:21 BMF 11/20/22 11/27/22 12/06/22 14:43 [...] Amt Small (1-33%) Small (1-33%) -Granulation Quality [place]uther[place] Pale -Slough/Fibrin -Necrosis Amt Small (1-33%) Small [...] Recorded Date Recorded By Document 11/20/22 15:00 [id number] 11/20/22 15:09 JF Edit Result 11/20/22 15:00 JF (1) [id number] 11/20/22 15:18 JF Edit Result 11/20/22 15:00 JF (2) [id number] 11/20/22 15:20 JF Document 11/27/22 14:50 JF [id number] 11/27/22 15:02 JF Document 12/06/22 11:46 [id number] 12/06/22 11:57 Document 12/11/22 13:30 [id number] 12/11/22 13:33 (1) #9 Right Inferior Hallux [...] => 08/20/27 - Product Lot Number => [id number] - Percent Used => 100 - Lot number of Saline Used => [id number] 11/20/22 11/27/22 12/06/22 15:00 14:50 11:46 Wound [...] Date 08/20/27 08/20/27 09/20/27 -Product Lot Number [id number] 015 -Percent Used 100 100 100 -Lot number of Saline Used [id number] -Bleeding Controlled with Pressure Pressure Pressure -Treatment [...] Date Recorded By Document 11/20/22 15:35 DL [id number] 11/20/22 15:36 DL Document 11/27/22 15:02 [id number] 11/27/22 15:03 Document 12/06/22 11:57 JF [id number] 12/06/22 11:58 JF Document 12/11/22 13:57 DL [id number] 12/11/22 13:58 DL 11/20/22 11/27/22 12/06/22 15:35 [...] if develop any questions or concerns. 12/14/22 7126 <Electronically signed by Bonny Glynn NP FAST FOOD CASHIER-C> Cosigner Signature (if applicable): CC: ~ Signed [facility] Work Phone: [phone]) 185-295604-19-2023 Progress note Author Bonny Glynn [facility] December 06, 2022 12:09pm Note Date/Time December 06, 2022 12: 09pm [facility] [place] [address] Progress Note - Wound Care 12/06/22 1205 MR#: [id number] Acct: [id number] Name: PEDRO HILLMAN Rep #:[id number] : 1945 77 From: Bonny garcia FAST FOOD CASHIER FAST FOOD CASHIER-C PCP: Dr. Tonio Fajardo, DO Status:REG RCR Location: History of Present Illness Date of Service: 12/06/22 Chief Complaint: right medial foot ulcer History of Wound: This 77-year-old male returns to the wound healing clinic for reoccurrence of a right medial foot ulcer. Wound care has been Moistened Cass covered with Victor SAP dressing. Patient diabetic neuropathic. Patient dealing [...] 11:35 12/06/22 11:35 Charges/Coding Procedures Integumentary 150xxx-152xx: 70784 Skin sub graft face/nk/hf/g Debridement Note Debridement [...] Start: 11/20/22 14:43 Freq: Status: Active Protocol: URBAN.LOWPATRICA Activity Type Activity Date Activity User E-sign Co-sign Detail Recorded Client Recorded Date Recorded By Document 11/20/22 14:43 DL [id number] 11/20/22 14:49 DL Document 11/27/22 14:25 BMF [id number] 11/27/22 14:27 BMF Document 12/06/22 11:35 DL [id number] 12/06/22 11:39 DL 11/20/22 11/27/22 12/06/22 14:43 14:25 11:35 WC - Today's Visit Information Type of service Follow-up Visit Follow-up Visit (Physician/ULTRASOUND TECHNOLOGIST (Physician/ULTRASOUND TECHNOLOGIST ) ) Arrival Mode Ambulatory,Cane Ambulatory Transfer [...] Date Recorded By Document 11/20/22 14:43 DL [id number] 11/20/22 14:49 DL Document 11/27/22 14:25 BMF [id number] 11/27/22 14:27 BMF Document 12/06/22 11:35 DL [id number] 12/06/22 11:39 DL 11/20/22 11/27/22 12/06/22 14:43 [...] Amt Small (1-33%) Small (1-33%) -Granulation Quality [place] Pale -Necrosis Amt Small (1-33%) Small (1-33%) [...] Recorded Date Recorded By Document 11/20/22 15:00 [id number] 11/20/22 15:09 JF Edit Result 11/20/22 15:00 JF (1) [id number] 11/20/22 15:18 JF Edit Result 11/20/22 15:00 JF (2) [id number] 11/20/22 15:20 Document 11/27/22 14:50 [id number] 11/27/22 15:02 Document 12/06/22 11:46 [id number] 12/06/22 11:57 (1) #9 Right Inferior Hallux [...] => 08/20/27 - Product Lot Number => [id number] - Percent Used => 100 - Lot number of Saline Used => [id number] 11/20/22 11/27/22 12/06/22 15:00 14:50 11:46 Wound [...] Date 08/20/27 08/20/27 09/20/27 -Product Lot Number [id number] 015 -Percent Used 100 100 100 -Lot number of Saline Used [id number] -Bleeding Controlled with Pressure Pressure Pressure -Treatment [...] Date Recorded By Document 11/20/22 15:35 DL [id number] 11/20/22 15:36 DL Document 11/27/22 15:02 JF [id number] 11/27/22 15:03 Document 12/06/22 11:57 [id number] 12/06/22 11:58 11/20/22 11/27/22 12/06/22 15:35 15:02 [...] if develop any questions or concerns. 12/06/22 1204 <Electronically signed by Bonny Glynn NP FAST FOOD CASHIER-C> Cosigner Signature (if applicable): CC: ~ Signed [facility] Work Phone: [phone]) 802-397204-11-2023 Progress note Author Bonnyparris Glynn [facility] November 28, 2022 5:24pm Note Date/Time November 27, 2022 3:1 4pm [facility] [address] [place] [address] Progress Note - Wound Care 11/27/22 1513 MR#: [id number] Acct: [id number] Name: PEDRO HILLMAN Rep #:[id number] : 1945 77 From: oBnny garcia 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 Tonio Fajardo, DO Status:REG RCR Location: History of Present Illness Date of Service: 11/27/22 Chief Complaint: right medial foot ulcer History of Wound: This 77-year-old male returns to the wound healing clinic for reoccurrence of a right medial foot ulcer. Wound care has been Moistened Cass covered with Victor SAP dressing. Patient diabetic neuropathic. Patient dealing [...] 14:43 11/27/22 14:25 Charges/Coding Procedures Integumentary 150xxx-152xx: 05185 Skin sub graft face/nk/hf/g Debridement Note Debridement [...] Start: 11/20/22 14:43 Freq: Status: Active Protocol: URBAN.LOWPATRICA Activity Type Activity Date Activity User E-sign Co-sign Detail Recorded Client Recorded Date Recorded By Document 11/20/22 14:43 [id number] 11/20/22 14:49 DL Document 11/27/22 14:25 [facility] [id number] 11/27/22 14:27 [facility] 11/20/22 11/27/22 14:43 14:25 - Today's Visit Information Type of service Follow-up Visit Follow-up Visit (Physician/ULTRASOUND TECHNOLOGIST (Physician/ULTRASOUND TECHNOLOGIST ) ) Arrival Mode Ambulatory,Cane Ambulatory Transfer [...] Date Recorded By Document 11/20/22 14:43 DL [id number] 11/20/22 14:49 DL Document 11/27/22 14:25 [facility] [id number] 11/27/22 14:27 [facility] 11/20/22 11/27/22 14:43 14:25 Wound Center Nurse [...] Thickened -Granulation Amt Small (1-33%) -Granulation Quality [place] -Necrosis Amt Small (1-33%) -Necrotic Tissue Type [...] Recorded Date Recorded By Document 11/20/22 15:00 [id number] 11/20/22 15:09 JF Edit Result 11/20/22 15:00 JF (1) [id number] 11/20/22 15:18 JF Edit Result 11/20/22 15:00 JF (2) [id number] 11/20/22 15:20 JF Document 11/27/22 14:50 JF [id number] 11/27/22 15:02 JF (1) #9 Right Inferior [...] => 08/20/27 - Product Lot Number => [id number] - Percent Used => 100 - Lot number of Saline Used => [id number] 11/20/22 11/27/22 15:00 14:50 Wound Center Nurse [...] -Expiration Date 08/20/27 08/20/27 -Product Lot Number [id number] -Percent Used 100 100 -Lot number of Saline Used [id number] -Bleeding Controlled with Pressure Pressure -Treatment Response [...] Date Recorded By Document 11/20/22 15:35 DL [id number] 11/20/22 15:36 DL Document 11/27/22 15:02 DORA [id number] 11/27/22 15:03 DORA 11/20/22 11/27/22 15:35 15:02 Wound Care Center [...] 1724 <Electronically signed by Bonny Glynn NP FAST FOOD CASHIER-C> Cosigner Signature (if applicable): CC: ~ Signed [facility] Work Phone: [phone]) [phone] Progress note Author Bonny Glynn [facility] November 26, 2022 10:29pm Note Date/Time November 20, 2022 4:18 pm [facility] [address] [place] [address] Progress Note - Wound Care 11/20/22 1618 MR#: [id number] Acct: [id number] Name: PEDRO HILLMAN Rep #:[id number] : 1945 77 From: Bonny garcia FAST FOOD CASHIER FAST FOOD CASHIER-C PCP: Dr. Tonio Fajardo, DO Status:REG RCR Location: History of Present Illness Date of Service: 11/20/22 Chief Complaint: right medial foot ulcer History of Wound: This 77-year-old male returns to the wound healing clinic for reoccurrence of a right medial foot ulcer. Wound care has been Moistened Cass covered with Victor SAP dressing. Patient diabetic neuropathic. Patient dealing [...] 14:43 11/20/22 14:43 Charges/Coding Procedures Integumentary 150xxx-152xx: 75813 Skin sub graft face/nk/hf/g Debridement Note Debridement [...] Date Recorded By Document 11/20/22 14:43 DL [id number] 11/20/22 14:49 DL 11/20/22 14:43 - Today's Visit Information Type of service Follow-up Visit (Physician/ULTRASOUND TECHNOLOGIST ) Arrival Mode Ambulatory,Cane Transfer Assistance None [...] Date Recorded By Document 11/20/22 14:43 DL [id number] 11/20/22 14:49 DL 11/20/22 14:43 Wound Center Nurse 1 #9 Right Inferior Hallux -Current Size (cm) - Length 0.2 -Current Size (cm) - Width 0.3 -Current Size (cm) - Depth 0.2 -Total Square Cm 0.06 -Photo Taken No -Exudate Amt Small -Exudate Type Serosanguineous -Wound Margin Thickened -Granulation Amt Small (1-33%) -Granulation Quality [place] -Necrosis Amt Small (1-33%) -Necrotic Tissue Type [...] Date Recorded By Document 11/20/22 15:00 JF [id number] 11/20/22 15:09 JF Edit Result 11/20/22 15:00 JF (1) [id number] 11/20/22 15:18 JF Edit Result 11/20/22 15:00 JF (2) [id number] 11/20/22 15:20 JF (1) #9 Right Inferior [...] => 08/20/27 - Product Lot Number => [id number] - Percent Used => 100 - Lot number of Saline Used => [id number] 11/20/22 15:00 Wound Center Nurse 2 -Time [...] Disc -Expiration Date 08/20/27 -Product Lot Number [id number] -Percent Used 100 -Lot number of Saline Used [id number] -Bleeding Controlled with Pressure -Treatment Response Procedure [...] Date Recorded By Document 11/20/22 15:35 DL [id number] 11/20/22 15:36 DL 11/20/22 15:35 Wound Care [...] 11/26/222228 <Electronically signed by Bonny Glynn NP FAST FOOD CASHIER-C> Cosigner Signature (if applicable): CC: ~ Signed [facility] Work Phone: 1(350) 828-978802-21-2023 Progress note Author Bonny Glynn [facility] October 10, 2022 3:29pm Note Date/Time October 09, 2022 4:10pm [facility] [address] [place] [address] Progress Note - Wound Care 10/09/22 1609 MR#: [id number] Acct: [id number] Name: PEDRO HILLMAN Rep #:[id number] : 1945 77 From: Bonny garcia 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 Tonio Fajardo, DO Status:REG RCR Location: History of Present Illness Date of Service: 10/09/22 Chief Complaint: right foot ulcer History of Wound: This 77-year-old male returns to the wound healing clinic for reoccurrence of a right medial foot ulcer. Wound care has been Moistened Cass covered with Victor SAP dressing. Patient diabetic neuropathic. Patient dealing [...] Method Room Air Charges/Coding Procedures Integumentary 150xxx-152xx: 56397 Skin sub graft face/nk/hf/g Debridement Note Debridement [...] Recorded Date Recorded By Document 09/25/22 14:25 [facility] [id number] 09/25/22 14:32 BMF Document 10/02/22 13:28 ML [id number] 10/02/22 13:32 ML Document 10/09/22 12:59 DL [id number] 10/09/22 13:04 DL 09/25/22 10/02/22 10/09/22 14:25 13:28 12:59 - Today's Visit Information Type of service Follow-up Visit Follow-up Visit Follow-up Visit (Physician/ULTRASOUND TECHNOLOGIST (Physician/ULTRASOUND TECHNOLOGIST (Physician/ULTRASOUND TECHNOLOGIST ) ) ) Arrival Mode Ambulatory,Cane Cane [...] Date Recorded By Document 09/25/22 14:25 BMF [id number] 09/25/22 14:32 BMF Document 10/02/22 13:28 ML [id number] 10/02/22 13:32 ML Document 10/09/22 12:59 DL [id number] 10/09/22 13:04 DL 09/25/22 10/02/22 10/09/22 14:25 [...] (0 Large (67-100%) %) -Granulation Quality [place] -Slough/Fibrin Yes Yes -Necrosis Amt Small (1-33%) [...] Recorded Date Recorded By Document 09/25/22 14:42 [id number] 09/25/22 14:51 Document 10/02/22 14:14 [id number] 10/02/22 14:17 Document 10/09/22 13:17 [id number] 10/09/22 13:26 09/25/22 10/02/22 10/09/22 14:42 14:14 [...] Date 06/20/27 05/20/27 06/20/27 -Product Lot Number [id number] -Percent Used 100 100 100 -Lot number of Saline Used [id number] -Bleeding Controlled with Pressure Pressure Pressure -Treatment [...] Date Recorded By Document 09/25/22 14:52 DORA [id number] 09/25/22 14:53 Document 10/02/22 14:18 [id number] 10/02/22 14:19 09/25/22 10/02/22 14:52 14:18 Wound [...] positive for Staphylococcus epidermidis and GNR lactose surgery assistant. I spoke with his PCP, Dr Fajardo, who was made aware of the results and he said he would treat him from these results. Follow up one week. 10/10/22 1529 <Electronically signed by Bonny Glynn NP FAST FOOD CASHIER-C> Cosigner Signature (if applicable): CC: ~ Signed [facility] Work Phone: 1(804) 840-756002-14-2023 Progress note Author Bonny Glynn [facility] October 03, 2022 4:51pm Note Date/Time September 26, 2022 1 :17pm [facility] [address] [place] [address] Progress Note - Wound Care 09/25/22 1501 MR#: [id number] Acct: [id number] Name: PEDRO HILLMAN Rep #:[id number] : 1945 77 From: Bonny garcia 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 Tonio Fajardo, DO Status:REG RCR Location: ADDENDUM by FAST FOOD CASHIER-C Bonny Glynn on 10/03/22 at 1651 Addendum [place] [address] Procedures Integumentary 150xxx-152xx: 35844 Skin sub graft face/nk/hf/g 10/03/22 1651<Electronically signed by Bonny Glynn NP FAST FOOD CASHIER-C> Cosigner Signature (if applicable): cc: ~* Signed History of Present Illness Date of Service: 09/25/22 Chief Complaint: right foot ulcer History of Wound: This 77-year-old male returns to the wound healing clinic for reoccurrence of a right medial foot ulcer. Wound care has been Moistened Cass covered with Victor SAP dressing. Patient diabetic neuropathic. Patient dealing [...] Method Room Air Charges/Coding Procedures Integumentary 150xxx-152xx: 71403 Skin sub graft trnk/arm/leg Debridement Note Debridement [...] Recorded Date Recorded By Document 09/25/22 14:25 [facility] [id number] 09/25/22 14:32 [facility] 09/25/22 14:25 WC - Today's Visit Information Type of service Follow-up Visit (Physician/ULTRASOUND TECHNOLOGIST ) Arrival Mode Ambulatory,Cane Transfer Assistance None [...] Recorded Date Recorded By Document 09/25/22 14:25 [facility] [id number] 09/25/22 14:32 [facility] 09/25/22 14:25 Wound Center Nurse 1 [...] Recorded Date Recorded By Document 09/25/22 14:42 [id number] 09/25/22 14:51 09/25/22 14:42 Wound Center Nurse [...] Disc -Expiration Date 06/20/27 -Product Lot Number [id number] -Percent Used 100 -Lot number of Saline Used [id number] -Bleeding Controlled with Pressure -Treatment Response Procedure [...] Recorded Date Recorded By Document 09/25/22 14:52 [id number] 09/25/22 14:53 09/25/22 14:52 Wound Care Center [...] 1317 <Electronically signed by Bonny Glynn NP FAST FOOD CASHIER-C> Cosigner Signature (if applicable): CC: ~ Signed [facility] Work Phone: 1(120) 275-890002-14-2023 Progress note Author Bonnyparris Glynn [facility] October 03, 2022 4:49pm Note Date/Time October 02, 2022 2:57pm [facility] [address] [place] [address] Progress Note - Wound Care 10/02/22 1457 MR#: [id number] Acct: [id number] Name: PEDRO HILLMAN Rep #:[id number] : 1945 77 From: Bonny garcia 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 Tonio Fajardo, DO Status:REG RCR Location: History of Present Illness Date of Service: 10/02/22 Chief Complaint: right foot ulcer History of Wound: This 77-year-old male returns to the wound healing clinic for reoccurrence of a right medial foot ulcer. Wound care has been Moistened Cass covered with Victor SAP dressing. Patient diabetic neuropathic. Patient dealing [...] Charges/Coding Visit Charges Office Visits / Consults: 04730 OV L3 Est (25 modifier) Procedures Integumentary 150xxx-152xx: 66669 Skin sub graft face/nk/hf/g Physical Exam Const [...] Date Recorded By Document 09/25/22 14:25 BMF [id number] 09/25/22 14:32 BMF Document 10/02/22 13:28 ML [id number] 10/02/22 13:32 ML 09/25/22 10/02/22 14:25 13:28 URBAN - Today's Visit Information Type of service Follow-up Visit Follow-up Visit (Physician/ULTRASOUND TECHNOLOGIST (Physician/ULTRASOUND TECHNOLOGIST ) ) Arrival Mode Ambulatory,Cane Cane Transfer [...] Date Recorded By Document 09/25/22 14:25 BMF [id number] 09/25/22 14:32 BMF Document 10/02/22 13:28 ML [id number] 10/02/22 13:32 ML 09/25/22 10/02/22 14:25 13:28 [...] Recorded Date Recorded By Document 09/25/22 14:42 [id number] 09/25/22 14:51 Document 10/02/22 14:14 [id number] 10/02/22 14:17 09/25/22 10/02/22 14:42 14:14 Wound [...] -Expiration Date 06/20/27 05/20/27 -Product Lot Number [id number] -Percent Used 100 100 -Lot number of Saline Used [id number] -Bleeding Controlled with Pressure Pressure -Treatment Response [...] Recorded Date Recorded By Document 09/25/22 14:52 [id number] 09/25/22 14:53 Document 10/02/22 14:18 [id number] 10/02/22 14:19 09/25/22 10/02/22 14:52 14:18 Wound [...] they should go to the ED. 10/03/22 1279 <Electronically signed by Bonny Glynn NP FAST FOOD CASHIER-C> Cosigner Signature (if applicable): CC: ~ Signed [facility] Work Phone: 1(910) 153-489301-10-2023 Progress note Author Bonny Glynn [facility] August 29, 2022 3:36pm Note Date/Time August 29, 2022 2 :32pm [facility] [address] [place] [address] Progress Note - Wound Care 08/29/22 1429 MR#: [id number] Acct: [id number] Name: PEDRO HILLMAN Rep #:[id number] : 1945 77 From: Bonny garcia FAST FOOD CASHIER FAST FOOD CASHIER-C PCP: Dr. Tonio Fajardo, DO Status:REG RCR Location: History of Present Illness Date of Service: 08/29/22 Chief Complaint: right foot ulcer History of Wound: This 77-year-old male returns to the wound healing clinic for reoccurrence of a right medial foot ulcer. Wound care has been Moistened Cass covered with Victor SAP dressing. Patient diabetic neuropathic. Patient dealing [...] Method Room Air Charges/Coding Procedures Integumentary 111xxx-113xx: 88541 Mihaela subq tissue 20 sq cm/< Debridement [...] Recorded Date Recorded By Document 08/29/22 13:17 [facility] [id number] 08/29/22 13:22 [facility] 08/29/22 13:17 - Today's Visit Information Type of service Follow-up Visit (Physician/ULTRASOUND TECHNOLOGIST ) Arrival Mode Ambulatory,Cane Transfer Assistance None [...] Recorded Date Recorded By Document 08/29/22 13:17 [facility] [id number] 08/29/22 13:22 [facility] 08/29/22 13:17 Wound Center Nurse 1 [...] Recorded Date Recorded By Document 08/29/22 13:35 DORA [id number] 08/29/22 13:40 DORA 08/29/22 13:35 Wound Center [...] Date Recorded By Document 08/29/22 13:47 DL [id number] 08/29/22 13:47 DL 08/29/22 13:47 Wound Care [...] Silvercel as the primary dressing covered with Victor SAP (secondarydressing) daily after washing foot with [...] 1536 <Electronically signed by Bonny Glynn NP FAST FOOD CASHIER-C> Cosigner Signature (if applicable): CC: ~ Signed [facility] Work Phone: 1(374) 843-925212-16-2022 Miscellaneous Notes* Telephone Encounter - Liseth Ortiz Ma - 08/04/2022 9:59 AM EST Pt PCP outside [facility]. Call to pt and notified him of Providers message. Pt states that he did talk tohim. FYI. Liseth Ortiz Ma * Telephone Encounter - Steven Rodriguez APRN.CNP - 07/28/2022 1:43 PM EST In reviewing patient's chart I do not see that he has had any follow up done in regards to his actionable chest xray finding. I left a message on patient's voicemail for him to call back and advise. Steven Rodriguez APRN.SHANI documented in this encounterA[facility]08-[facility]22 Miscellaneous Notes* Telephone Encounter - Jenny Mock - 04/08/2022 2:56 PM EDT Notified pt of results, daughter will call to get information on restrictions. Jenny Mock * Telephone Encounter - Jenny Mock - 04/08/2022 9:18 AM EDT left message on machine to give call back, different number from pharmacy. [phone]. Jenny Mock * Telephone Encounter - Jenny Mock - 04/07/2022 5:48 PM EDT Unable to reach patient. Mailbox full/Mailbox not set up/ Number incorrect. Please try again later. Jenny Mock * Telephone Encounter - Sigrid Monroe LPN - 04/06/2022 6:48 PM EDT Still unable to reach patient and contact lens polisher is spouse with same number.Sigrid Monroe LPN * Telephone Encounter - Sigird Monroe LPN - 04/06/2022 7:59 AM EDT Unable to reach patient and rings a fast busy-try again later.Sigrid Monroe LPN * Telephone Encounter - Carlos Whelan MD - 04/06/2022 7:45 AM EDT [...] symptoms; ER if severe. documented in this encounterAult[facility]08-17-2022 NoteHNO ID: [id number] Author: Steven Rodriguez APRN.ULTRASOUND TECHNOLOGIST Service: ? Author Type: Nurse Practitioner Type: [...] ICD10: Z20.822 - COVID WITH FLUA+B, ROUTINE Steven Rodriguez, BRITTNI.[facility]08-17-2022 NoteHNO ID: [id number] Author: RT Jose Eduardo(R) Service: Nuclear Medicine [...] RT Jose Eduardo(R) April 05, 2022 1:55 [facility]08-17-2022 Influenza virus A and B RNA and SARS-CoV-2 (COVID-19) N gene panel BRYAN+probe (Resp)COVID 19 RESULT: SARS-CoV-2 (Agent of COVID-19) Detected by RT-PCR or equivalent method. anatoly ULAZ-HzE-8_Ztjnr [employer] (YASMEEN)_EUA This test was developed and its performance characteristics determined by [facility] [place]. This test has been authorized by FDA under an Emergency Use Authorization (EUA). This test has been validated in accordance with the FDA's Guidance Document Policy for DiagnosticsTesting in Laboratories Certified to Perform High Complexity Testing under CLIA prior to Emergency use Authorization for Coronavirus Disease 2019 during the Public Health Emergency issued on October 18, 2019. Test performed by [facility], [facility] [place], [address] [place] [address]. INFLUENZA A PCR: Negative for Influenza A by RT-PCR INFLUENZA B PCR: Negative for Influenza B by RT-PCRSelect [facility] [place] on above: Performed By: #### [id number] #### [facility] CLIA [id number] [address] [place] [address] STATES OF [id number] Miscellaneous Notes* Telephone Encounter - Steven Rodriguez APRN.CNP - 04/05/2022 2:58 PM EDT Radiology report faxed to patient's PCP Dr. Tonio Fajardo at [phone]. Confirmation of fax received. Patient was advised to call Dr. Fajardo today for a follow up appointment. Steven Rodriguez APRN.CNP documented in this encounterAultman [facility]08-17-2022 Instructions* Patient Instructions* Steven Rodriguez APRN.CNP - 04/05/2022 2:25 PM EDT [...] ICD10: Z20.822 - COVID WITH FLUA+B, ROUTINE Steven Rodriguez APRN.ULTRASOUND TECHNOLOGIST documented in this encounterAultman [facility]08-17-2022 History of Present illness Narrative* Steven Rodriguez APRN.ULTRASOUND TECHNOLOGIST - 04/05/2022 2:03 PM EDT Subjective HPI [...] ICD10: Z20.822 - COVID WITH FLUA+B, ROUTINE Steven Rodriguez APRN.ULTRASOUND TECHNOLOGIST documented in this encounterAultman [facility]08-17-2022 History of Present illness Narrative* Yuliana [...] 05, 2022 1:55 PM documented in this encounterAultman Alliance Community HospitalConsult note Author Mala Sterling [facility] Note Date/Time March 09, 2025 2:58 pm [facility] Medical Records Department [address] [place] [address] Counseling Note - Pharmacy 03/09/25 1457 MR#: [id number] Acct: [id number] Name: PEDRO HILLMAN Rep #:[id number] : 1945 80 From: Mala Sterling PCP: Dr. 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 Venous insufficiency chronic Ulcer of right foot with fat layer exposed resolved [facility] Work Phone: Evaluation note* Diagnosis [...] right foot with fat layer exposed resolved [facility] Work Phone: Evaluation note* Diagnosis [...] right foot with fat layer exposed resolved [facility] Work Phone: Evaluation note* Diagnosis [...] 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 [facility] Work Phone: Evaluation note* Diagnosis [...] right foot with fat layer exposed resolved [facility] Work Phone: Evaluation note* Diagnosis Burning with urination- Primary Dysuria Acute cough Suspected COVID-19 virus infection documented in this encounter [facility]* Diagnosis Onset Date Resolution Status [...] acute Nicotine dependence, cigarettes, in remission acute [facility] Work Phone: Evaluation note* Diagnosis [...] right foot with fat layer exposed resolved [facility] Work Phone: Evaluation note* Diagnosis [...] right foot with fat layer exposed resolved [facility] Work Phone: Evaluation note* Diagnosis [...] of upper lobe of right lung acute [facility] Work Phone: Evaluation note* Diagnosis [...] of upper lobe of right lung acute [facility] Work Phone: Evaluation note* Diagnosis [...] of upper lobe of right lung acute [facility] Work Phone: Evaluation note* Diagnosis [...] 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 [facility] Work Phone: Evaluation note* Diagnosis [...] right foot with fat layer exposed chronic [facility] Work Phone: Evaluation note* Diagnosis [...] right foot with fat layer exposed chronic [facility] Work Phone: Evaluation note* Diagnosis [...] layer exposed chronic Shortness of breath chronic [facility] Work Phone: Evaluation note* Diagnosis [...] of upper lobe of right lung chronic [facility] Work Phone: Evaluation note* Diagnosis [...] of upper lobe of right lung chronic [facility] Work Phone: Evaluation note* Diagnosis [...] right foot with fat layer exposed chronic [facility] Work Phone: Evaluation note* Diagnosis [...] right foot with fat layer exposed chronic [facility] Work Phone: Evaluation note* Diagnosis [...] right foot with fat layer exposed chronic [facility] Work Phone: Evaluation note* Diagnosis [...] right foot with fat layer exposed chronic [facility] Work Phone: Evaluation note* Diagnosis [...] right foot with fat layer exposed chronic [facility] Work Phone: Evaluation note* Diagnosis [...] right foot with fat layer exposed resolved [facility] Work Phone: Evaluation note* Diagnosis [...] right foot with fat layer exposed chronic [facility] Work Phone: Evaluation note* Diagnosis [...] of upper lobe of right lung chronic [facility] Work Phone: Evaluation note* Diagnosis Onset Date Resolution Status Irregular heart rate acute COPD (chronic obstructive pulmonary disease) chronic 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 Other persistent atrial fibrillation acute Hyperlipidemia chronic Hypertension chronic 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 Plenty of fluids and rest today do not get dehydrated. Return if you are feeling a lot worse or too weak to get around her house. Follow-up with your doctor in the next several days to ensure you are improving. [facility] Work Phone: Hospital Discharge instructions Additional Instructions 1. Keep your postoperative dressing clean dry and intact 2. Continue strict glycemic control. 3. Partial weightbearing to heel with surgical shoe, use walker or crutches 4. Reach out to Dr. Suárez with any questions or concerns and follow-up in 1 week in clinic. [facility]: Reason for referral (narrative)No reason for referral information availableWChildren's [facility] Work Phone: Chief Complaint and Reason for [...] 04 7:57pm Atherosclerosis of coronary artery of [place] cross heart without angina pectoris March 04, 2025 [...] 2025 7:57pm Atherosclerosis of coronary artery of [place] heart without angina pectoris March 04, 2025 [...] 15, 2025 4:56 pm 6 M FU/S/P [facility] 03/09March 17, 2025 12: 51pm Reason for [...] 2025 7:57pm Atherosclerosis of coronary artery of [place] heart without angina pectoris March 04, 2025 [...] 15, 2025 4:56 pm 6 M FU/S/P [facility] 03/09March 17, 2025 12: 51pm atrial fibrillation [...] 15, 2025 4:56 pm 6 M FU/S/P [facility] 03/09March 17, 2025 12: 51pm atrial fibrillation [...] 2025 7:57pm Atherosclerosis of coronary artery of [place] heart without angina pectoris March 04, 2025 7:57pm CHF exacerbation March 04, 2025 7:57 pm Hypertension March 04, 2025 7:57 pm Peripheral arterial disease March 04, 2 025 7:57pm Other persistent atrial fibrillation Lev y 2024 12:51pm Hyperlipidemia March 17, 2025 12:5 1pm [...] 15, 2025 4:56 pm 6 M FU/S/P [facility] 03/09March 17, 2025 12: 51pm atrial fibrillation March 27, 2025 8:3 7am atrial fibrillation [address] 8th, 2025 8:5 4am AE OF CHRONIC DIASTOLIC [...] 2025 7:57pm Atherosclerosis of coronary artery of [place] heart without angina pectoris March 04, 2025 [...] April 05, 2025 7:55pm Respiratory insufficiency April 05 025 7:55pm Acute on chronic diastolic congestive [...] AE CHF, ATRIAL FLUTTER; WITH RVR AND OHMA VATED March 06, 2025 9:26am AE CHF, [...] 15, 2025 4:56 pm 6 M FU/S/P [facility] 03/09March 17, 2025 12: 51pm atrial fibrillation [...] 11:14am ACCUTE EXACHERBATION CHF April 10 6:33pm Chief Complaint Admit Date AE CHF, ATRIAL [...] 15, 2025 4:56 pm 6 M FU/S/P [facility] 03/09March 17, 2025 12: 51pm atrial fibrillation [...] 11:14am ACCUTE EXACHERBATION CHF April 10 6:33pm tachycardia and sl pneumothorax on mehdi today. April 12, 2025 6:02pm Reason for Visit Admit Date Acute cystitis [...] 2025 7:57pm Atherosclerosis of coronary artery of [place] heart without angina pectoris March 04, 2025 [...] 7:55pm DARIUSZ (acute kidney injury) April 05, 025 7:55pm Chronic anticoagulation April 05 7:55pm Coronary artery disease April 05 7:55pm Elevated troponin April 05, 2025 7: 55pm Heart block AV complete April 05 7:55pm Hyperkalemia April 05, 2025 7: 55pm Overweight (BMI 25.0-29.9) April 05, 2025 7:55pm Respiratory insufficiency April 05 025 7:55pm Acute on chronic diastolic congestive he art failure April 05, 2025 7:55pm Chronic atrial fibrillation April 05, 2025 7:55pm CKD (chronic kidney disease), stage IV A ugust 2024 7:55pm Presence of aortocoronary bypass graft A ugust 2024 7:55pm Heart block AV complete April 10 11:14am Presence of cardiac pacemaker March 11:14am Acute heart failure with pre served ejection fraction (HFpEF) April 10, 2025 6:33pm Acute respiratory failure with hypoxia A ugust 2024 6:33pm DARIUSZ (acute kidney injury) April 10 025 6:33pm Atrial fibrillation April 10, 2025 6: 33pm BPH (benign prostatic hyperplasia) Augus t 2024 6:33pm Chronic kidney disease, stage 3b April 10, 2025 6:33pm Debility April 10, 2025 6: 33pm History of lung cancer April 10, 2025 6:33pm Pleural effusion on right April 10, 2 025 6:33pm Tachy-brittany syndrome April 10, 2025 6 :33pm Type 2 diabetes mellitus with hyperglyce alecia April 10, 2025 6:33pm COPD (chronic obstructive pulmonary dise ase) April 10, 2025 6:33pm Hyperlipidemia April 10, 2025 6: 33pm UTI (urinary tract infection) March 6:33pm Chief Complaint Admit Date AE CHF, ATRIAL [...] 15, 2025 4:56 pm 6 M FU/S/P [facility] 03/09March 17, 2025 12: 51pm atrial fibrillation [...] TR OPONIN T April 09, 2025 3:17pm Pacer Check Remote April 10, 2025 5: 57am AE OF CHRONIC DIASTOLIC CHF, ELEVATED TR OPONIN T April 10, 2025 7:50am Pacer Check Remote April 10, 2025 9: 00am 1st day post implant check April 10, 2025 11:14am ACCUTE EXACHERBATION CHF April 10 6:33pm tachycardia and sl pneumothorax on mehdi today. April 12, 2025 6:02pm Advance Directives Advance Directive Response Recorded Date/ Time Advance Directives No February 17 11:03am Living Will No February 17, 2014 1 1:03am Power of Tube Room Cashier No February 17, 2014 11:03am Advance Directive Response Recorded Date/ Time Name of Medical Power of Tube Room Cashier SON April 14, 2022 8:29am Advance Directives No February 17 4 11:03am Living Will No April 14 2 8:29am Power of Tube Room Cashier Yes April 14, 022 8:29am Advance Directive Response Recorded Date/ Time Name of Medical Power of Tube Room Cashier SON April 14, 2022 7:29am Advance Directives No February 17 4 10:03am Living Will No April 14 2 7:29am Power of Tube Room Cashier Yes April 14 7:29am Advance Directive Response Recorded Date/ Time Advance Directives No February 17 4 10:03am Living Will No April 14 2 7:29am Power of Tube Room Cashier Yes April 14 7:29am Advance Directive Response Recorded Date/ Time Advance Directives No February 17 4 11:03am Living Will No April 14 2 8:29am Power of Tube Room Cashier Yes April 14 8:29am Advance Directive Response Recorded Date/ Time Name of Medical Power of Tube Room Cashier Gideon Calderon December 30, 2022 10:39pm Advance Directives No February 17 4 11:03am Living Will Yes December 30, 2022 1 0:39pm Power of Tube Room Cashier Yes December 30, 2022 10:39pm Advance Directive Response Recorded Date/ Time Advance Directives No February 17 4 11:03am Living Will Yes December 30, 2022 1 0:39pm Power of Tube Room Cashier Yes December 30, 2022 10:39pm Advance Directive Response Recorded Date/ Time Advance Directives No February 17 4 10:03am Living Will Yes December 30, 2022 9 :39pm Power of Tube Room Cashier Yes December 30, 2022 9:39pm Advance Directive Response Recorded Date/ Time Living Will Yes December 30, 2022 1 0:39pm Power of Tube Room Cashier Yes December 30, 2022 10:39pm Advance Directives No February 17 11:03am Advance Directive Response Recorded Date/ Time Living Will Yes December 30, 2022 1 0:39pm Do you have a Healthcare Power of Tube Room Cashier? Yes December 30, 2022 10:39pm Living Will No April 14 8:29am Do you have a Healthcare Power of Tube Room Cashier? Yes April 14, 2022 8:29am Advance Directives No February 17 11:03am Advance Directive Response Recorded Date/ Time Living Will No April 14 8:29am Do you have a Healthcare Pow er of Tube Room Cashier? Yes April 14, 2022 8:29am Do you have a Healthcare Pow er of Tube Room Cashier? Yes March 04, 2025 2:58pm Name of Medical Power of Tube Room Cashier Ed Daja olmstead March 04, 2025 2:58pm Advance Directives No February 17 11:03am Advance Directive Response Recorded Date/ Time Do you have a Healthcare Power of Tube Room Cashier? Yes March 04, 2025 9:11pm Name of Medical Power of Tube Room Cashier Ed Daja olmstead March 04, 2025 2:58pm Advance Directives No February 17 11:03am Advance Directive Response Recorded Date/ Time Do you have a Healthcare Power of Tube Room Cashier? Yes March 04, 2025 9:11pm Name of Medical Power of Tube Room Cashier Ed Daja olmstead March 04, 2025 2:58pm Do you have a Healthcare Power of Tube Room Cashier? Yes March 15, 2025 5:04pm Name of Medical Power of Tube Room Cashier Ed Daja March 15, 2025 5:04pm Advance Directives No February 17 11:03am Advance Directive Response Recorded Date/ Time Do you have a Healthcare Pow er of Tube Room Cashier? Yes March 04, 2025 9:11pm Name of Medical Power of Tube Room Cashier Ed Daja olmstead March 04, 2025 2:58pm Do you have a Healthcare Pow er of Tube Room Cashier? Yes April 05, 2025 4:49pm Do you have a Healthcare Pow er of Tube Room Cashier? Yes March 15, 2025 5:04pm Name of Medical Power of Tube Room Cashier Ed Daja March 15, 2025 5:04pm Advance Directives No February 17 4 11:03am Advance Directive Response Recorded Date/ Time Do you have a Healthcare Pow er of Tube Room Cashier? Yes March 04, 2025 9:11pm Name of Medical Power of Tube Room Cashier Ed Daja olmstead March 04, 2025 2:58pm Do you have a Healthcare Pow er of Tube Room Cashier? Yes April 05, 2025 8:49pm Do you have a Healthcare Pow er of Tube Room Cashier? Yes March 15, 2025 5:04pm Name of Medical Power of Tube Room Cashier Ed Daja March 15, 2025 5:04pm Advance Directives No February 17 11:03am Advance Directive Response Recorded Date/ Time Do you have a Healthcare Pow er of Tube Room Cashier? Yes March 04, 2025 9:11pm Name of Medical Power of Tube Room Cashier Ed Daja olmstead March 04, 2025 2:58pm Do you have a Healthcare Pow er of Tube Room Cashier? Yes April 05, 2025 8:49pm Do you have a Healthcare Pow er of Tube Room Cashier? Yes April 12, 2025 6:18pm Do you have a Healthcare Pow er of Tube Room Cashier? Yes March 15, 2025 5:04pm Name of Medical Power of Tube Room Cashier Ed Daja March 15, 2025 5:04pm Do you have a Healthcare Pow er of Tube Room Cashier? Yes April 10, 2025 10:00pm Advance Directives No February 17 11:03am Health [...] may be documented in an alternate section No data available for this section Source Comments (unrecognize d section and content) In the event this informatio n is protected by the Federal Confidentiality of Alcohol and Drug Abuse Patient Records regulations: The Federal rules restrict any use of the information to criminally investigate or prosecute any alcohol or drug abuse patient.[facility] the event this information is protected by the Federal Confidentiality of Alcohol and Drug Abuse Patient Records regulations: The Federal rules restrict any use of the information to criminally investigate or prosecute any alcohol or drug abuse patient.[facility] the event this information is protected by the Federal Confidentiality of Alcohol and Drug Abuse Patient Records regulations: The Federal rules restrict any use of the information to criminally investigate or prosecute any alcohol or drug abuse patient.[facility] the event this information is protected by the Federal Confidentiality of Alcohol and Drug Abuse Patient Records regulations: The Federal rules restrict any use of the information to criminally investigate or prosecute any alcohol or drug abuse patient.[facility] the event this information is protected by the Federal Confidentiality of Alcohol and Drug Abuse Patient Records regulations: The Federal rules restrict any use of the information to criminally investigate or prosecute any alcohol or drug abuse patient.[facility] Reason for Visit (unrecogniz ed section and content) Reason Comments Results Reason Comments Urinary Problem burning with urinati on x 1 week nasal congestion and drainage x 1 week Reason Comments Results COVID+ Reason Comments Patient Update Care Teams (unrecognized sec tion and content) Care Team Personnel Name: TONIO FAJARDO DO Member Role: Primary Care Physician Address: [address] [place] [address] Telecom: Technology Auditor Relationship Specialty Start Date End Date Scotty, Tonio A, DO [address] [place], [place] [id number] PCP - General Family Practice 04/05/22 Technology Auditor Relationship Specialty Start Date End Date Tonio Fajardo, DO [address] [place] [address] PCP - General Family Practice 04/05/22 Technology Auditor Relationship Specialty Start Date End Date Tonio Fajardo, DO [address] [place], [place] [address] PCP - General Family Practice 04/05/22 Technology Auditor Relationship Specialty Start Date End Date Tonio Fajardo, DO [address] [place], [place] [id number] PCP - General Family Medicine 04/05/22 Team Status: Active Member Role Status Dates Dr. Tonio Fajardo , DO Family Provider Active Dr. Tonio Fajardo , DO Primary Care Provider Active Team Status: Inactive Member Role Status Dates Dr. Tonio Fajardo , DO Primary Care Provider, Referrin g Provider Active Iker Rodriguez FAST FOOD CASHIER, FAST FOOD CASHIER-C Attending Provider Active Team Status: Inactive Member Role Status Dates Dr. Tonio Fajardo DO Primary Care Provider, Referrin g Provider Active Dr. Russ Zamora MD Attending Provider Active Team Status: Inactive Member Role Status Dates Dr. Tonio Fajardo , DO Primary Care Provider, Referrin g Provider Active Dr. Srini Choi , DO Attending Provider Active Team Status: Active Member Role Status Dates Dr. Tonio Fajardo DO Primary Care Provider Active Bonny Glynn FAST FOOD CASHIER, FAST FOOD CASHIER-C Attending Pro vider, Referring Provider, Other Provider Active Team Status: Active Member Role Status Dates Dr. Tonio Fajardo , DO Primary Care Provider Active Dr. Srini Choi , DO Attending Provider, Referring P yumiko Active Team Status: Active Member Role Status [...] DO Primary Care Provider Active Bonny Glynn FAST FOOD CASHIER, FAST FOOD CASHIER-C Attending Provider Active Team Status: Active Member [...] DO Primary Care Provider Active Bonny Glynn FAST FOOD CASHIER, FAST FOOD CASHIER-C Attending Provider Active Team Status: Inactive Member Role Status Dates Dr. Tonio Fajardo DO Primary Care Provider Active Bonnyparris Pintoell FAST FOOD CASHIER, FAST FOOD CASHIER-C Attending Provider, Referri ng Provider Active Team Status: Inactive Member Role Status Dates Dr. Tonio Fajardo , DO Primary Care Provider, Referrin g Provider Active Dr. Tyrell Uriarte , DO Attending Provider Active Team Status: Active Member Role Status Dates Dr. Tonio Fajardo DO Primary Care Provider Active Bonnyap Glynn FAST FOOD CASHIER, FAST FOOD CASHIER-C Attending Provider, Other P rovider Active Team [...] Dates Dr. Tonio Fajardo DO Primary Care Prov ider, Attending Provider, Referring Provider Active Team Status: Inactive Member Role Status Dates Dr. Tonio Fajardo DO Primary Care Provider Active Dr. Russ Zamora MD Attending Provider, Referring Pro vider Active Team Status: Active Member Role Status Dates Dr. Tonio Fajardo DO Primary Care Provider, Referrin g Provider Active Bonny Glynn FAST FOOD CASHIER, FAST FOOD CASHIER-C Attending Provider Active Team Status: Inactive Member [...] Provider, Referrin g Provider Active Lorie Mart FAST FOOD CASHIER, FAST FOOD CASHIER-C Attending Provider Active Team Status: Inactive Member Role Status Dates Dr. Tonio Fajardo DO Primary Care Provider, Referrin g Provider Active Leslie Arriaga PA, PA Attending Provider Active Team Status: Inactive Member Role Status Dates Dr. Tonio Fajardo DO Primary Care Provider Active Lorie Mart FAST FOOD CASHIER, FAST FOOD CASHIER-C Attending Provider, Referrin g Provider Active Team [...] Dr. Joaquim Suárez DPM Attending Provider Active Technology Auditor Relationship Specialty Start Date End Date Tonio Fajardo DO [address] [place] [address] (work) PCP - General Family Medicine 04/05/22 Team [...] 2024 End: October 16, 2024 Lorie Mart FAST FOOD CASHIER, FAST FOOD CASHIER-C Attending Provider Active Start: October 16, 2024 End: October 16, 2024 Lorie Mart FAST FOOD CASHIER, FAST FOOD CASHIER-C Referring Provider Active Start: October 16, 2024 End: October 16, 2024 Team Status: Active Member Role Status Dates Dr. Tonio Fajardo DO Primary Care Provider Active Start: October 17, 2024 Lorie Mart FAST FOOD CASHIER, FAST FOOD CASHIER-C Referring Provider Active Start: October 17, 2024 Lorie Mart FAST FOOD CASHIER, FAST FOOD CASHIER-C Other Provider Active Start: October 17, 2024 [...] 2024 End: October 23, 2024 Lorie Mart NP, FAST FOOD CASHIER-C Attending Provider Active Start: October 23, 2024 [...] Status: Active Member Role Status Dates Dr. Tnoio Fajardo DO Primary [...] 2025 End: March 09, 2025 Iker Rodriguez FAST FOOD CASHIER, FAST FOOD CASHIER-C Other Provider Active Start : March 04, [...] Active Start: March 05, 2025 Iker Rodriguez FAST FOOD CASHIER, FAST FOOD CASHIER-C Other Provider Active Start : March 05, 2025 Leslie DAMIAN, PA Other Provider Active Start: March 05, [...] Active Start: March 06, 2025 Iker Rodriguez FAST FOOD CASHIER, FAST FOOD CASHIER-C Other Provider Active Start : March 06, [...] Active Start: March 06, 2025 Iker Rodriguez FAST FOOD CASHIER, FAST FOOD CASHIER-C Other Provider Active Start : March 06, [...] Active St art: March 07, 2025 Dr. Marojrie Green MD Other Provider Active Star t: [...] Active Start: March 07, 2025 Iker Rodriguez FAST FOOD CASHIER, FAST FOOD CASHIER-C Other Provider Active Start : March 07, [...] Active Start: March 08, 2025 Iker Rodriguez FAST FOOD CASHIER, FAST FOOD CASHIER-C Other Provider Active Start : March 08, [...] Active Sta rt: March 08, 2025 Dr. Pairs Tiwari MD Other Provider Active Start: March [...] Active Start: March 08, 2025 Iker Rodriguez FAST FOOD CASHIER, FAST FOOD CASHIER-C Other Provider Active Start : March 08, [...] Active Start: March 09, 2025 Iker Rodriguez FAST FOOD CASHIER, FAST FOOD CASHIER-C Other Provider Active Start : March 09, [...] Active Start: March 09, 2025 Iker Rodriguez FAST FOOD CASHIER, FAST FOOD CASHIER-C Other Provider Active Start : March 09, [...] Active S tart: March 27, 2025 Leslie Arriaga PA, PA [...] 2025 Carol Sousa Attending Provider Active Start: A ugust 2024 Team Status: Inactive Member Role/Relationship Status Dates [...] Attending Provider Active Start: April 10, 2025 Team Status: Inactive Member Role/Relationship Status Dates Dr. Tonio Fajardo DO Primary Care Provider Active Start: April 10, 2025 End: April 10, 2025 Dr. Tonio Fajardo DO Referring Provider Active Start: April 10, 2025 End: April 10, 2025 Carol Sousa Attending Provider Active Start: A ugust 2024 End: April 10, 2025 Team Status: Inactive Member Role/Relationship Status Dates Dr. Tonio Fajardo DO Primary Care Provider Active Start: April 10, 2025 End: April 13, 2025 Dr. Valdez Olivo MD Admit Provider Active Star t: April 10, 2025 End: April 13, 2025 Dr. Valdez Olivo MD Attending Provider Active Start: April 10, 2025 End: April 13, 2025 Team Status: Active Member Role/Relationship Status Dates Dr. Tonio Fajardo DO Primary Care Provider Active Start: April 12, 2025 Dr. Daniel Brownlee DO Emergency Provider Active Start: April 12, 2025 Team Status: Inactive Member Role/Relationship Status Dates Dr. Tonio Fajardo DO Primary Care Provider Active Start: April 12, 2025 End: April 13, 2025 Dr. Daniel Brownlee DO Emergency Provider Active Start: April 12, 2025 End: April 13, 2025 Team Status: Inactive Member Role/Relationship Status Dates Dr. Tonio Fajardo DO Primary Care Provider Active Start: April 10, 2025 End: April 10, 2025 Dr. Issa Looney MD Attending Provider Active S tart: April 10, 2025 End: April 10, 2025 Team Status: [...] Start : April 10, 2025 Team Status: Inactive Member Role/Relationship Status Dates Dr. Tonio Fajardo DO Primary Care Provider Active Start: April 10, 2025 End: April 10, 2025 Dr. Issa Looney MD Attending Provider Active S tart: April 10, 2025 End: April 10, 2025 Team Status: Inactive Member Role/Relationship Status Dates Dr. Tonio Fajardo DO Primary Care Provider Active Start: April 10, 2025 End: April 10, 2025 Dr. Tonio Fajardo DO Referring Provider Active Start: April 10, 2025 End: April 10, 2025 Carol Sousa Attending Provider Active Start: A ug2024 End: April 10, 2025 Team Status: Inactive Member Role/Relationship Status Dates Dr. Tonio Fajardo DO Primary Care Provider Active Start: April 10, 2025 End: April 12, 2025 Dr. Valdez Olivo MD Admit Provider Active Star t: April 10, 2025 End: April 12, 2025 Dr. Valdez Olivo MD Attending Provider Active Start: April 10, 2025 End: April 12, 2025 Team Status: Inactive Member Role/Relationship Status Dates Dr. Tonio Fajardo DO Primary Care Provider Active Start: April 12, 2025 End: April 13, 2025 Dr. Daniel Brownlee DO Emergency Provider Active Start: April 12, 2025 End: April 13, 2025 (unrecognized sect ion and content) No Status Records FoundNo Status Records FoundNo Status Records Found INFORMATION SOURCE (unrecogn ized section and content) DATE CREATED AUTHOR 08/12/2022 [facility] DATE CREATED AUTHOR AUTHOR'S ORGANIZ ATION 04/16/2025 [facility] DATE CREATED AUTHOR AUTHOR'S ORGANIZ ATION 04/17/2025 [facility] FOR RECORDS PERTAINING TO PATIENTS WHO ARE [...] BE BASED ON THE PRIMARY CLINICAL RECORDS. [employer] provides no warranty or guarantee of the accuracy or completeness of information in this document.
[2025-04-18 06:19] LABS: Hematocrit 28.6 % (40-54); Hemoglobin 9.0 g/dL (13.0-16.5); Immature Granulocytes Count 0.140 X10^3/uL (0.0-0.0); Mean Corp Hgb Conc 31.5 g/dL (32-36); Mean Corpuscular Volume 85.9 fL (80-94); Mean Platelet Vol. 10.5 fl (6.2-12.0); NRBC Flagged by Analyzer 0 % (0-5); Platelet Count 186 K/mm3 (150-450); RBC Distribution Width CV 17.0 % (11.6-14.6); RBC Distribution Width SD 52.7 fl (35.1-43.9); Red Blood Count 3.33 M/mm3 (4.6-6.2); White Blood Count 9.9 K/mm3 (4.4-11.0)
[2025-04-18 06:55] LABS: Anion Gap 12 (5-15); BUN 43 mg/dL (4-19); BUN/Creat Ratio 25.1 RATIO (10-20); Calcium,Total 9.1 mg/dL (7.6-11.0); Carbon Dioxide 36.0 mmol/L (21.0-32.0); Chloride 89 mmol/L (98-108); Estimated Creatinine Clearance 30.73 ml/min (50-250); Glucose 104 mg/dL (70-99); Potassium 3.4 mmol/L (3.3-5.1)
[2025-04-18] MEDS: LINAGLIPTIN 5 MG TABLET PO (08:50)
[2025-04-18] MEDS: Senna/Docusate Sodium 1 Tablet 2 TABLET PO ×2 (08:50→21:41)
[2025-04-18] MEDS: APIXABAN 2.5 MG TABLET (WCH) PO ×2 (08:50→21:40)
[2025-04-18] MEDS: Metoprolol(XL)Succ 25 MG Tablet 12.5 MG PO ×2 (08:53→21:41)
--- NOTE | 2025-04-18 11:15 | NURSING ---
pt wears oxygen @ 2liters chronically, humidification applied.
[2025-04-18] MEDS: Tuberculin,Purif.prot.deriv. 50 TU/ML Vial 0.1 ML ID (11:16)
[2025-04-18] MEDS: Glucerna Shake 120 ML LIQUID PO ×2 (12:28→17:42)
--- NOTE | 2025-04-18 13:55 | NURSING ---
therapy reported that pt got up out of chair without issue & started to feel weak and needed to sit and therapist was able to get pt to bed to rest. checked vitals after therapy session, BP 105/50 HR 102 & sat 98% on 2 liters. pt states that he gets that way when his oxygen drops with activity and at home he turns oxygen up to 3 liters wtih activity and down to 2 liters at rest
--- NOTE | 2025-04-18 18:00 | NURSING ---
entered pt room on rounding and noticed pt had hospital pants pulled down to knees and removed his gown. pt requesting to have a tshirt on from home and remove pants and place his own pull ups on to make it easier for him to use the urinal. pt also noted to have some blood on attends. pt had small abrasion to shaft of penis from the rim edges of urinal. new urinal given and this nurse placed tape around edges to prevent this from happening. son brought in some of pts personal belongings. pt would benefit from a primofit d/t urgency and staff not getting to him as fast as he needs. pt stated when I gotta go, I gotta go, I cant wait
--- NOTE | 2025-04-18 19:31 | NURSING ---
Per day shift report, pt having difficulty with urinal. Pt has had frequent episodes of urinary incontinence. Pt states he is not able to sleep at night due to having to void frequently with urgency. Will try primofit at HS to see if this intervention helps pt sleep better tonight.
[2025-04-18] MEDS: Insulin Glargine-YFGN 100 UNIT/ML Pen 30 UNIT SC (21:40)
--- NOTE | 2025-04-18 22:22 | NURSING ---
Vape pen found at pt's bedside. Pt states he does not know who the vape belongs to. Educated pt that [facility] is a tobacco free campus, including vape pens. Pt accepting of education. Vape pen removed from pt's room and placed in med room.
[2025-04-19 07:33] VITALS: O2SAT 95
[2025-04-19 07:54] VITALS: BP 118/67; PULSE 102; RESP 18; TEMP 36.3; O2SAT 100
--- NOTE | 2025-04-19 07:55 | NURSING ---
staff was assisting pt with washing up in bed this AM, trying to sit him up to dress him pt eyes rolled back in head and went unresponsive for approx 10-30 seconds. pt states he is not sure why that keeps happening. any attempts of movement pt has unresponsive episodes from 10-[address] chávez notified, new order to send pt to ER for evaluation if pt ok with it. pt verbalized he wants to stay full code and wants to go to ER.
[2025-04-19] MEDS: APIXABAN 2.5 MG TABLET (WCH) PO (08:07)
[2025-04-19 08:08] VITALS: PULSE 102
[2025-04-19] MEDS: Metoprolol(XL)Succ 25 MG Tablet 12.5 MG PO (08:08)
[2025-04-19] MEDS: LINAGLIPTIN 5 MG TABLET PO (08:09)
--- NOTE | 2025-04-19 08:13 | NURSING ---
pt off unit to ER via bed at this time. med list sent with pt. pt ate a few bites of brkfst this AM
--- NOTE | 2025-04-19 08:20 | PCM.PN.DRR ---
Documented by User: Mukul Barbosa 04/19/25 08:39 TCU RX Drug Regimen Review Subjective/Objective Subjective/Objective Subjective: TCU admission. 80 year old male with below past medical history hospitalized for acute respiratory failure with hypoxia 2/2 pneumonia, pneumothorax, pleural effusion, acute HFpEF, complicated by COPD, admitted to TCU with debility, here for rehabilitation, strengthening, prior to discharge home alone. Objective: Allergies ibuprofen Allergy (Severe, Verified 04/05/25 16:44) Facial swelling (angioedema) Current Medications Generic Name Dose Route Start Last Admin Trade Name Freq PRN Reason Stop Dose Admin Acetaminophen 1,000 mg 04/17/25 20:16 04/17/25 22:54 Acetaminophen 500 Mg Tablet PO 1,000 mg Q6H PRN PRN Administration Pain Score 1-10 Albuterol Sulfate 2 puff 04/17/25 19:10 Albuterol Ih (6.7 Gm) 1 Puff Inhaler INHALATION Q4H PRN shortness of breath or wheezing Albuterol/Ipratropium 3 ml 04/18/25 11:00 04/18/25 14:30 Ipratropium/Albuterol Sulfate 3 Ml Ampul.Neb INHALATION 3 ml Q8H.RT FROY Administration Apixaban 2.5 mg 04/17/25 22:00 04/19/25 08:07 Apixaban 2.5 Mg Tablet (Wch) PO 2.5 mg BID FROY Administration Calamine/Phenol 1 applic 04/18/25 10:00 04/18/25 21:40 Menthol/Lanolin/Calamine/Znox 113 Gm Tube TOPICAL 1 applic BID FROY Administration Protocol Clopidogrel Bisulfate 75 mg 04/18/25 10:00 04/19/25 08:08 Clopidogrel Bisulfate 75 Mg Tablet PO 75 mg DAILY FROY Administration Furosemide 40 mg 04/18/25 10:00 04/19/25 08:08 Furosemide 40 Mg Tablet PO 40 mg DAILY FROY Administration Protocol Guaifenesin 1,200 mg 04/17/25 22:00 04/18/25 21:41 Guaifenesin 1,200 Mg Tablet PO 1,200 mg BID FROY Administration Insulin Glargine 30 unit 04/17/25 22:00 04/18/25 21:40 Insulin Glargine-Yfgn 100 Unit/Ml Pen SC 30 unit QHS FROY Administration Linagliptin 5 mg 04/18/25 10:00 04/19/25 08:09 Linagliptin 5 Mg Tablet PO 5 mg DAILY FROY Administration Magnesium Citrate 300 ml 04/17/25 20:16 Magnesium Citrate 300 Ml PO DAILY PRN CONSTIPATION Metoprolol Succinate 12.5 mg 04/17/25 22:00 04/19/25 08:08 Metoprolol(Xl)Succ 25 Mg Tablet PO 12.5 mg BID FROY Administration Protocol Multivitamins 1 tablet 04/18/25 10:00 04/18/25 08:50 Multivitamins,Therapeutic Tablet PO 1 tablet DAILY FROY Administration Nutritional Formula (Lactose Free) 120 ml 04/18/25 12:45 04/18/25 17:42 Glucerna Shake 120 Ml Liquid PO 120 ml TIDCM FROY Administration Nystatin 1 applic 04/18/25 10:00 04/18/25 21:40 Nystatin Powder 15gm Bottle TOPICAL 1 applic BID [facility] Administration Protocol Pravastatin Sodium 20 mg 04/17/25 22:00 04/18/25 21:41 Pravastatin 20 Mg Tablet PO 20 mg QHS FROY Administration Senna/Docusate Sodium 2 tablet 04/17/25 22:00 04/18/25 21:41 Senna/Docusate Sodium 1 Tablet PO 2 tablet BID FROY Administration Tamsulosin HCl 0.4 mg 04/18/25 17:30 04/18/25 17:42 Tamsulosin Hcl 0.4 Mg Capsule PO 0.4 mg DAILY@1730 FROY Administration Tuberculin PPD 0.1 ml 04/25/25 10:00 Tuberculin,Purif.Prot.Deriv. 50 Tu/Ml Vial ID 04/25/25 10:01 X1 ONE Problem List Pleural effusion (Acute) Pneumothorax (Acute) Pneumonia (Acute) BPH (benign prostatic hyperplasia) (Acute) Type 2 diabetes mellitus with hyperglycemia (Acute) Atrial fibrillation (Acute) Tachy-brittany syndrome (Acute) Acute heart failure with preserved ejection fraction (HFpEF) (Acute) Acute respiratory failure with hypoxia (Acute) Debility (Acute) COPD (chronic obstructive pulmonary disease) (Chronic) Hyperlipidemia (Chronic) Vital Signs Temp Pulse Resp BP Pulse Ox O2 Del Method O2 Flow Rate 97.4 F L 102 H 18 118/67 100 Nasal Cannula 3 04/19/25 07:54 04/19/25 08:08 04/19/25 07:54 04/19/25 07:54 04/19/25 07:54 04/19/25 07:54 04/19/25 07:54 Oxygen Flow Rate (L/min) 3 Oxygen Delivery Method Nasal Cannula Weight: 67.041 kg Body Mass Index (BMI) 23.8 Sodium 137 mmol/L (133-145) 04/18/25 06:05 Potassium 3.4 mmol/L (3.3-5.1) 04/18/25 06:05 Chloride 89 mmol/L (98-108) L 04/18/25 06:05 Carbon Dioxide 36.0 mmol/L (21.0-32.0) H 04/18/25 06:05 Anion Gap 12 (5-15) 04/18/25 06:05 BUN 43 mg/dL (4-19) H 04/18/25 06:05 Creatinine 1.73 mg/dL (0.70-1.20) H 04/18/25 06:05 Est GFR (MDRD) Non-Af 39 (>60) L 04/18/25 06:05 BUN/Creatinine Ratio 25.1 RATIO (10-20) H 04/18/25 06:05 Glucose 104 mg/dL (70-99) H 04/18/25 06:05 Assessment/Plan: 1. Pain: acetaminophen 1000 mg Po Q6H PRN pain. The patient has used 1 dose of acetaminophen so far this admission. Please continue to monitor pain levels, PRN medication usage, and LFTs (AST/ALT = 19/13 U/L on 04/06/25). 2. Bowel: senna/docusate 2 tablets PO BID, magnesium citrate 300 mL PO daily PRN constipation. The patient has not required any PRN doses of magnesium citrate so far this admission, and the patient's last bowel movement was documented on 04/19/25. Please continue to monitor for bowel movements, for PRN medication usage, for constipation, and diarrhea. 3. Atrial fibrillation/chronic HFpEF/PAOD: apixaban 2.5 mg PO BID, metoprolol succinate 12.5 mg PO daily, clopidogrel 75 mg PO daily, furosemide 40 mg PO daily. Please continue to monitor for s/s of stroke, for bleeding/excessive bruising, renal function (serum creatinine = 1.73 g/dL with creatinine clearance ~ 31 mL/min on 04/18/25), heart rates (recent range = 99-106 beats/min), blood pressures (recent range = 105-135/46-68 mmHg), for fatigue, hemoglobin levels (Hgb = 9.0 g/dL on 04/18/25), platelet counts (Plt = 186 K/mm3 on 04/18/25), sodium levels (Na = 137 mmol/L on 04/18/25), potassium levels (K = 3.4 mmol/L on 04/18/25), and for s/s of dehydration. 4. Diabetes Mellitus: linagliptin 5 mg PO daily, insulin glargine 30 units QHS. Please continue to monitor blood glucose levels (recent range = 99-217 mg/dL), hemoglobin A1C levels (A1C = 6.3% on 03/04/25), and for s/s of hypo/hyperglycemia. 5. COPD: ipratropium/albuterol 3 mL Q8H, albuterol 2 puffs Q4H PRN shortness of breath. The patient has not required any PRN doses of albuterol so far this admission. Please continue to monitor respiratory status, for s/s of a COPD exacerbation such as cough and increased sputum production, as well as for dry mouth, and palpitation. 6. Hyperlipidemia: pravastatin 20 mg PO QHS. Please continue to monitor lipid levels (cholesterol = 117 mg/dL with LDL = 63 mg/dL on 03/05/25), LFTs (AST/ALT = 19/13 U/L on 04/06/25), and for myalgias. 7. BPH: tamsulosin 0.4 mg PO daily. Please continue to monitor for urinary retention, and for s/s of orthostasis. 8. Congestion: guaifenesin 1200 mg PO BID. Please continue to monitor for congestion and dehydration. 9. Nutrition: multivitamin 1 tablet PO daily, glucerna 120 mL PO TID with meals. Please continue to monitor overall nutritional status. 10. Skin irritation/tinea corporis: calmoseptine 1 application topically BID, nystatin powder 1 application topically BID. Please continue to monitor for skin irritation and for resolution of tinea corporis. Assessment/Plan for indications treated with psychotropic medications: NA Medical chart and medication regimen reviewed. The following medication irregularities or issues were identified: NA Date Date of Note: 04/19/25 Documented by User: Dr. Valdez Olivo MD 04/19/25 10:10 TCU RX Drug Regimen Review Provider Comments Provider responsibility Provider Comments to Recommendations by Pharmacy Agree
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
--- NOTE | 2025-04-30 09:17 | MDS.RN ---
Information for the MDS was obtained from review of the clinical record, interview of resident, staff, and direct observation of resident?s care.
== END 2025-04-19 08:15 | disposition short-term general hospital (02) | DRG 193 ==
PROVIDERS: Admitting Provider Family Medicine Geriatric Medicine; PCP Family Medicine; Referring Provider Family Medicine Geriatric Medicine; Visit Provider Family Medicine Geriatric Medicine
DX: J15.4 Pneumonia due to other streptococci (principal); J96.01 Acute respiratory failure with hypoxia; I50.33 Acute on chronic diastolic (congestive) heart failure; J93.9 Pneumothorax, unspecified; J44.0 Chronic obstructive pulmonary disease with (acute) lower respiratory infection; I48.19 Other persistent atrial fibrillation; I13.0 Hypertensive heart and chronic kidney disease with heart failure and stage 1 through stage 4 chronic kidney disease, or unspecified chronic kidney disease; J91.8 Pleural effusion in other conditions classified elsewhere; I49.5 Sick sinus syndrome; R55 Syncope and collapse; E11.51 Type 2 diabetes mellitus with diabetic peripheral angiopathy without gangrene; N18.30 Chronic kidney disease, stage 3 unspecified; J43.2 Centrilobular emphysema; E78.5 Hyperlipidemia, unspecified; I25.10 Atherosclerotic heart disease of native coronary artery without angina pectoris; E11.65 Type 2 diabetes mellitus with hyperglycemia; K21.9 Gastro-esophageal reflux disease without esophagitis; E11.42 Type 2 diabetes mellitus with diabetic polyneuropathy; E11.22 Type 2 diabetes mellitus with diabetic chronic kidney disease; L98.9 Disorder of the skin and subcutaneous tissue, unspecified; Z79.84 Long term (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 of oral hypoglycemic drugs; Z87.891 Personal history of nicotine dependence; Z79.899 Other long term (current) drug therapy; N40.0 Benign prostatic hyperplasia without lower urinary tract symptoms; Z95.0 Presence of cardiac pacemaker; Z99.81 Dependence on supplemental oxygen
CPT/HCPCS: 36415; 80048; 82962; 85025; 94640; 97110; 97116; 97162; 97165; 97530; 97535

== ENCOUNTER 2025-04-19 08:21 | Inpatient (IN) | payer OTHER, SELFPAY ==
[2025-04-19] VITALS (11 sets, daily range): BP systolic 85–136; BP diastolic 53–68; PULSE 100–103; RESP 16–20; TEMP 36.4–36.7; O2SAT 98–100; BMI 25.7; BMI 23.1
--- NOTE | 2025-04-19 08:23 | EKG12_ITS ---
Test Reason : SYNCOPE Blood Pressure : */* mmHG Vent. Rate : 102 BPM Atrial Rate : 102 BPM P-R Int : 114 ms QRS Dur : 126 ms QT Int : 378 ms P-R-T Axes : -6 26 -48 degrees QTcB Int : 492 ms Sinus tachycardia Right bundle branch block T wave abnormality, consider inferolateral ischemia Abnormal ECG Confirmed by Willian Glaser ([id number]), movie editor CODI SEGURA ([id number]) on 04/21/2025 10:36:14 AM Referred By: Confirmed By: Willian Glaser
--- NOTE | 2025-04-19 08:41 | ED.RN ---
[employer] INTERROGATED BY KHURRAM CHARLTON. READ GIVEN TO DR HERNANDEZ.
--- NOTE | 2025-04-19 08:44 | EDS_ITS ---
HPI History of Present Illness Chief Complaint: Syncope [facility] Medical History Presence of cardiac pacemaker Peripheral arterial disease Other persistent atrial fibrillation New onset atrial flutter COVID Wears hearing aid in both ears Former smoker Coronary artery disease Peripheral vascular occlusive disease BPH (benign prostatic hyperplasia) Chronic kidney disease, stage 3 Atherosclerosis of coronary artery of [place] heart without angina pectoris Hyperlipidemia Lower extremity edema Venous insufficiency Malnutrition Delayed wound healing Osteomyelitis of ankle, left, acute Ulcer of left lower extremity with fat layer exposed Type 2 diabetes mellitus with diabetic polyneuropathy Anemia GERD (gastroesophageal reflux disease) Hypertension Home Medications ?Medication ?Instructions ?Recorded ?Last Taken ?Type insulin glargine 100 unit/mL 30 unit SQ QHS diabetes 0 11/19/19 03/03/25 History subcutaneous solution multivitamin (Daily Multi-Vitamin 1 tab PO DAILY suppl ement 06/28/20 03/03/25 History tablet) sitagliptin phosphate 50 mg tablet 50 mg PO DAILY diab etes 11/02/21 03/03/25 History (Januvia) pravastatin 20 mg tablet 20 mg PO DAILY hyperlipidemi a 01/17/22 03/03/25 History cranberry 500 mg capsule 500 mg PO DAILY supplement 1 09/25/22 03/03/25 History docusate sodium 100 mg capsule 100 mg PO DAILY PRN sto ol softner 07/25/23 Unknown History (Colace) albuterol sulfate 90 mcg/actuation 2 puff inhalation Q 4H PRN 10/23/24 Unknown Rx aerosol inhaler shortness of breath or wheez ing #3 device umeclidinium 62.5 mcg-vilanterol 1 inh inhalation QDAY copd #60 ea 10/23/24 04/08/25 Rx 25 mcg/actuation powdr for inhalation (Anoro Ellipta) apixaban 5 mg tablet (Eliquis) 2.5 mg (1/2 x 5 mg) PO BID blood 03/09/25 Unknown Rx thinner 30 days #30 tabs tamsulosin 0.4 mg capsule 0.4 mg PO DAILY@1730 prostat e 30 03/09/25 Unknown Rx days #30 caps metoprolol succinate 25 mg 12.5 mg (1/2 x 25 mg) PO BI D blood 04/03/25 Unknown Rx tablet,extended release 24 hr thinner #90 tabs clopidogrel 75 mg tablet 75 mg PO DAILY anti platelet 04/05/25 Unknown History insulin glargine 100 unit/mL (3 30 unit subcut QHS Blo od sugar 04/05/25 Unknown History mL) subcutaneous pen (Lantus Solostar U-100 Insulin) furosemide 40 mg tablet (Lasix) 40 mg PO DAILY diureti c #60 tabs 04/08/25 Unknown Rx guaifenesin 600 mg tablet, 1,200 mg (2 x 600 mg) PO BI D mucus 04/08/25 Unknown Rx extended release 12 hr (Mucinex) #20 tabs OXYGEN - Supplemental ([facility] 04/09/25 Unknown History INFORMATIONAL USE ONLY) aspirin 81 mg chewable tablet 1 tab PO DAILY Heart hea lth 04/17/25 Unknown History ipratropium 0.5 mg-albuterol 3 mg 3 ml inhalation Q8H SOB 04/17/25 Unknown History (2.5 mg base)/3 mL nebulization soln lanolin alcohols-mineral 1 applic topical BID dry ski n 04/17/25 Unknown History oil-w.petrolatum-ceresin topical cream (Eucerin topical cream) linagliptin 5 mg tablet (Tradjenta) 5 mg PO DAILY 03/22 09/13 Unknown History Allergy/AdvReac Type Severity Reaction Status Date / Time ibuprofen Allergy Severe Facial Verified 04/19/25 08:24 swelling (angioedema) Family History Brother Diabetes Father , Age 72 stomach ulcers No problems noted. Mother , Age 71 pancreatitis No problems noted. Sister , hepatitis C No problems noted. Surgical History History of permanent cardiac pacemaker placement H/O aorto-femoral bypass (~2009) History of transurethral resection of prostate Presence of aortocoronary bypass graft (~03/2013) Social History household members: none Smoking Status: Former smoker Tobacco: How many years used: 30 how long ago did patient quit smokin years EXAM Physical Exam Const Vital Signs: 04/19/25 08:22 04/19/25 08:42 04/19/25 09:28 Temperature 97.9 F Temperature Source Oral Pulse Rate 102 H Pulse Rate [Lying] Pulse Rate [Sitting (for 1 minute prior to obtaining)] Respiratory Rate 19 H Respiratory Effort Normal Respiratory Pattern Normal Blood Pressure 133/63 H Blood Pressure [Lying] Blood Pressure [Sitting (for 1 minute prior to obtaining)] Blood Pressure Mean 86 Blood Pressure Mean [Lying] Blood Pressure Mean [Sitting (for 1 minute prior to obtaining)] Pulse Ox 98 Oxygen Delivery Method Nasal Cannula Oxygen Flow Rate (L/min) 3 04/19/25 09:45 04/19/25 09:54 Temperature Temperature Source Pulse Rate 102 H Pulse Rate [Lying] 102 H Pulse Rate [Sitting (for 1 minute prior to obtaining)] 103 H Respiratory Rate 20 H Respiratory Effort Respiratory Pattern Blood Pressure 117/60 Blood Pressure [Lying] 136/67 H Blood Pressure [Sitting (for 1 minute prior to obtaining)] 85/68 L Blood Pressure Mean 79 Blood Pressure Mean [Lying] 90 Blood Pressure Mean [Sitting (for 1 minute prior to obtaining)] 73 Pulse Ox 100 Oxygen Delivery Method Nasal Cannula Oxygen Flow Rate (L/min) 3 MDM MDM MDM Narrative Medical decision making narrative: HISTORY OF PRESENT ILLNESS: Chief complaint: Syncope 80-year-old male history of A-fib/a flutter, tachybradycardia syndrome status post pacemaker, heart failure, BPH, CKD, COPD, type 2 diabetes, peripheral vascular disease status post aortofemoral bypass in 2009, recent pacemaker placement this presents concern for syncope. Patient notes when he attempts to rise from a seated position gets lightheaded and subsequently passes out. Denies any prodromal symptoms such as headache, chest pain, abdominal pain. Notes he may be dehydrated but denies any vomiting or diarrhea. Denies any cough fever or chills. Notes his pacemaker was placed recently at [facility]. Denies any pain over pacemaker site. REVIEW OF SYSTEMS: Pertinent positives: Syncope Pertinent negatives: As per HPI PHYSICAL EXAM: Nursing triage notes reviewed, Vital signs reviewed Constitutional: please see mdm HENT: MMM Eyes: Pupils equal round and reactive to light, Extraocular muscles intact Neck: No stridor, no JVD, full neck ROM Lungs: Clear to auscultation, No wheezing or rales. No increased work of breathing, no conversational dyspnea, no accessory muscle use, no nasal flaring. No respiratory distress noted Heart: Regular rate and rhythm, No murmurs, No rubs and No gallops, 2+ distal pulses (radial, femoral, posterior tibial) in all extremities. Pacemaker pocket without evidence of erythema, TTP, induration fluctuance crepitus. Abdomen: Soft, there is no tenderness, rigidity, rebound or guarding, no obvious peritoneal signs, no palpable pulsatile abdominal masses, no auscultated abdominal bruit : No CVAT Extremities: No edema Neuro: No new focal neurological deficits, cranial nerves II through XII intact, 5/5 strength in all present extremities. Intact sensation to light touch in all present extremities, 2+ reflexes bilateral patella tendons. Skin: No rash or lesions noted MEDICAL DECISION MAKING: Chief Complaint: please see [facility] External records reviewed: Pacemaker was placed here with [facility] on 04/09/[address] Hsu Reviewed prior cardiovascular testing: Reviewed last pacemaker check from 04/10/2025 this showed 1 atrial tachycardia/A-fib episode, 100% atrial tachycar ludmila his A-fib burden. No ventricular tachycardia V-fib episodes. Reviewed echocardiogram from 03/05/2025 which shows an ejection fraction of 55% Factors affecting care: As per HPI Social determinants of health: none History obtained from others: TCU Consults: Cardiology (Dr. Miller) - Noted patient safe to stay at [facility]. States he should be able to evaluate the patient here for signs of orthostasis. Recommended getting orthostatic vital signs. Internal medicine (Dr. Narayanan) ? recommended PCU MDM Narrative: The patient was initially I considered the following differential diagnosis: Arrhythmia, anemia, electrolyte disturbance, dehydration I obtained to further determine if the patient was suffering from a life- threatening etiology. ALL IMAGES (IF OBTAINED) HAVE BEEN PERSONALLY REVIEWED AND INTERPRETED BY MYSELF. EKG with sinus tachycardia rate of 102 normal axis, prolonged QT interval at 492, no obvious STEMI Troponin elevated CBC with leukocytosis, mild anemia, no thrombocytopenia. BMP without significant electrolyte disturbances, no sign of endorgan hypoperfusion with a normal anion gap, no sign of metabolic acidosis based on the patient's bicarb on CMP. No sign of liver dysfunction. High-sensitivity troponin is negative, no evidence of myocardial ischemia Chest x-ray was read and reviewed personally by myself showed no evidence of pneumothorax. Did show some pulmonary edema consistent with prior x-rays. No obvious pneumonia. Radiologist noted no significant changes compared to prior EKG. On re-evaluation patient was significant orthostatic and showed hypotension and tachycardia upon movement. The patient and/or family, caregivers express understanding. The patient and/or family, caregivers agrees with the plan. Shared decision making: I will have a discussion with the patient and or visitors regarding risk/benefits of further testing or admission. They will be made aware of of the risk/benefits inherent in this decision they will be given the opportunity to voice understanding. Total critical care time today provided was at least 0 minutes. This excludes separately billable procedures. Critical care time (if documented) is secondary to the patient having high probability of clinically significant/life threatening deterioration in the patient's condition which required my urgent intervention. Impression: 1. Syncope 2. History of tachybradycardia syndrome 3. Orthostasis 4. Anemia 5. History of CKD 6. Elevated troponin Dispo: Admit to PCU This note was generated with hopTo dictation software. It may contain incorrect words, spelling, and punctuation that were not noted in review of the chart prior to signing. Lab Data Labs: Laboratory Results - last 24 hr 04/19/25 08:35 WBC 10.7 RBC 3.51 L Hgb 9.6 L Hct 30.6 L MCV 87.2 MCH 27.4 MCHC 31.4 L RDW Std Deviation 54.8 H RDW Coeff of Reggie 17.2 H Plt Count 204 MPV 11.1 Immature Gran % (Auto) 1.600 H Neut % (Auto) 75.0 H Lymph % (Auto) 9.1 L Todd % (Auto) 11.3 H Eos % (Auto) 2.7 Baso % (Auto) 0.3 Absolute Neuts (auto) 8.0 H Absolute Lymphs (auto) 0.97 Nucleated RBC % 0 Sodium 136 Potassium 3.5 Chloride 87 L Carbon Dioxide 37.3 H Anion Gap 11 BUN 40 H Creatinine 1.74 H Estim Creat Clear Calc 30.56 L Est GFR (MDRD) Non-Af 39 L BUN/Creatinine Ratio 22.7 H Glucose 132 H Calcium 9.4 Total Bilirubin 0.55 AST 30 ALT 27 Alkaline Phosphatase 79 Troponin T High Sens 99 H* Total Protein 6.8 Albumin 3.4 Globulin 3.4 Albumin/Globulin Ratio 1.0 Radiography Diagnostic Testing: Clinical Impression(s) from Imaging Studies Chest X-Ray 04/19/25 08:54 IMPRESSION: No significant changes on findings suggestive of CHF compared to x-ray 04/12/2025. Reading Location: [facility] Discharge Plan Triage Chief Complaint: Syncope ED Provider: Casper Iniguez Dx/Rx/DC Orders Prescriptions: No Action multivitamin [Daily Multi-Vitamin] Tablet 1 tab PO DAILY pravastatin 20 mg tablet 20 mg PO DAILY docusate sodium [Colace] 100 mg capsule 100 mg PO DAILY PRN cranberry 500 mg capsule 500 mg PO DAILY Rx Instructions: administer with meals albuterol sulfate 90 mcg/actuation HFA aerosol inhaler 2 puff inhalation Q4H PRN (Reason: shortness of breath or wheezing) Qty: 3 3RF Rx Instructions: administer with spacer umeclidinium-vilanterol [Anoro Ellipta] 62.5-25 mcg/actuation blister with device 1 inh inhalation QDAY Qty: 60 3RF insulin glargine 100 UNIT/ML solution 30 unit SQ QHS Januvia 50 mg Tablet 50 mg PO DAILY Eliquis 5 mg Tablet 2.5 mg PO BID 30 Days Qty: 30 3RF tamsulosin 0.4 mg Capsule 0.4 mg PO DAILY@1730 30 Days Qty: 30 2RF clopidogrel 75 mg tablet 75 mg PO DAILY insulin glargine [Lantus Solostar U-100 Insulin] 100 unit/mL (3 mL) insulin pen 30 unit subcut QHS guaifenesin [Mucinex] 600 mg tablet extended release 12hr 1,200 mg PO BID Qty: 20 0RF furosemide [Lasix] 40 mg tablet 40 mg PO DAILY Qty: 60 0RF (DME) OXYGEN - Supplemental ([facility] INFORMATIONAL USE ONLY) Gas See Rx Instructions .ROUTE Patient Comments: 2 lpm at rest, 3 lpm on exertion, 2 lpm at HS DME company: [employer] CM Rx Instructions: As directed ipratropium-albuterol 0.5 mg-3 mg(2.5 mg base)/3 mL solution for nebulization 3 ml inhalation Q8H Eucerin Cream 1 applic topical BID aspirin 81 mg tablet,chewable 1 tab PO DAILY Tradjenta 5 mg tablet 5 mg PO DAILY metoprolol succinate 25 mg tablet extended release 24 hr 12.5 mg PO BID Qty: 90 3RF Primary Care Provider: Luis Johnson Referrals: Luis Johnson DO [Primary Care Provider] - Print Language: Armenian
--- NOTE | 2025-04-19 08:54 | RAD_ITS ---
PROCEDURE: CHEST 1 VIEW (PORTABLE) 04/19/2025 REASON FOR EXAM: SYNCOPE TECHNIQUE: Frontal view of the chest. COMPARISON: Chest x-ray 04/12/2025. FINDINGS: Hardware: A left-sided pacemaker with 2 leads in the right atrium and right ventricle. Heart: No cardiomegaly. Lungs: Diffuse interstitial pulmonary densities. Obliteration of the costophrenic angles consistent with pleural effusions. No pneumothorax. Bones: No acute bony abnormalities. RAD/Chest 1 View (Portable) IMPRESSION: No significant changes on findings suggestive of CHF compared to x-ray 04/12/20 25. Reading Location: [id number]
--- OUTSIDE RECORDS SUMMARY | 2025-04-19 08:54 | XMS RPT_ITS | CCD ---
Author Organization [facility] Care Team Providers Care Juvenile Officer Name Role Phone Dr. Tonio Fajardo Primary Care Provider [phone] Dr. Tonio Fajardo Referring Provider Dr. Issa Looney Attending Provider [phone] Tonio Fajardo DO Primary Care Provider Dr. Tyrell Uriarte Attending Provider Dr. Tonio Fajardo Primary Care Provider [phone] Dr. Tonio Fajardo Referring Provider Brittny DIRECTOR OF DIETARY, DIRECTOR OF DIETARY-C Lorie Attending Provider Dr. Russ Zamora Attending Provider Renard DIRECTOR OF DIETARY, DIRECTOR OF DIETARY-C Bonny E Attending Provider [phone] Renard DIRECTOR OF DIETARY, DIRECTOR OF DIETARY-C Bonny E Referring Provider Renard DIRECTOR OF DIETARY, DIRECTOR OF DIETARY-C Bonny E Other Provider Dr. Srini Choi Attending Provider Dr. Srini Choi Referring Provider Dr. Srini Choi Other Provider Dr. Mateo Shahid Attending Provider Dr. Issa Looney Attending Provider Dr. Kenyon Flores Referring Provider Unava ilable Dr. Srini Choi Referring Provider [phone] Tevin Allen Attending Provider [phone] Dr. Tonio Fajardo Primary Care Provider Dr. Tonio Fajardo Referring Provider Dr. Tyrell Uriarte Attending Provider Dr. Issa Looney Attending Provider Dr. Kenyon Flores Referring Provider Unava mp Mart DIRECTOR OF DIETARY, DIRECTOR OF DIETARY-C Lorie Attending Provider [phone] Dr. Russ Zamora Attending Provider Renard DIRECTOR OF DIETARY, DIRECTOR OF DIETARY-C Bonny E Attending Provider Renard DIRECTOR OF DIETARY, DIRECTOR OF DIETARY-C Bonny E Referring Provider [phone] Renard DIRECTOR OF DIETARY, DIRECTOR OF DIETARY-C Bonny E Other Provider Dr. Srini Choi Attending Provider Dr. Srini Choi Referring Provider Dr. Srini Choi Other Provider Dr. Mateo Shahid Attending Provider Roof DIRECTOR OF DIETARY, DIRECTOR OF DIETARY-C Iker Stephens Attending Provider Tonio Fajardo DO A Primary Care Provider JESSIE RODRIGUEZ Referring Unavailable TONIO FAJARDO A Primary Care Unavailable TONIO FAJARDO A Primary Care Unavailable Dr. Tonio Fajardo Primary Care Provider [phone] Dr. Tonio Fajardo Referring Provider Dr. Tonio Fajardo Primary Care Provider [phone] Renard DIRECTOR OF DIETARY, DIRECTOR OF DIETARY-C Bonny E Attending Provider Renard DIRECTOR OF DIETARY, DIRECTOR OF DIETARY-C Bonny E Referring Provider Renard DIRECTOR OF DIETARY, DIRECTOR OF DIETARY-C Bonny E Other Provider Dr. Tonio Fajardo Referring Provider Dr. Russ Zamora Attending Provider Dr. Tonio Fajardo Primary Care Provider Dr. Srini Choi Attending Provider Dr. Srini Choi Referring Provider Renard DIRECTOR OF DIETARY, FARHEEN Melendez Attending Provider Renard DIRECTOR OF DIETARYFARHEEN Referring Provider Renard DIRECTOR OF DIETARY, FARHEEN Melendez Other Provider Dr. Tonio Fajardo Referring Provider [phone] Monocytes/100 WBC (Bld) 12.1 % High 0-10 [facility] Comment on above: Performed By: #### L 100.0100, L500.2500 ####[facility] [address] [place], [address] Neutrophils/100 WBC (Bld) 72.6 % High 47-70 [facility] Comment on above: Performed By: #### L 100.0100, L500.2500 ####[facility] [address] [place], [address] Nucleated RBC (Bld) [#/Vol] 0 10*3/uL Normal 0-5 [facility] Comment on above: Performed By: #### L 100.0100, L500.2500 ####[facility] [address] [place], [address] Platelet mean volume (Bld) [Entitic vol] 10.0 fL Normal 6.2-12.0 [facility] Comment on above: Performed By: #### L 100.0100, L500.2500 ####[facility] [address] [place], [address] Platelets (Bld) [#/Vol] 162 10*3/uL Normal 150-450 [facility] Comment on above: Performed By: #### L 100.0100, L500.2500 ####[facility] [address] [place], [address] RBC (Bld) [#/Vol] 3.38 10*6/uL Low 4.6-6.2 [facility] Comment on above: Performed By: #### L 100.0100, L500.2500 ####[facility] [address] [place], [address] RDW SD 51.8 fl High 35.1-43.9 [facility] Comment on above: Performed By: #### L 100.0100, L500.2500 ####[facility] [address] [place], [address] WBC (Bld) [#/Vol] 5.5 10*3/uL Normal 4.4-11.0 [facility] Comment on above: Performed By: #### L 100.0100, L500.2500 ####[facility] [address] [place], [address] Carbon dioxide, total [Moles /volume] in Central venous bloodOrdered By: Deric Lantigua on 03-09-2025 CO2 [Moles/Vol] 26.6 mmol/L 21.0-32.0 [facility] Chloride assayOrdered By: Silvia Lantigua on 03-09-2025 Chloride [Moles/Vol] 101 mmol/L 98-108 [facility] Discharge Instructionon 07-2 Discharge Instruction Normal [facility] Eosinophil percentageOrdered By: Deric Lantigua on 03-09-2025 Eosinophils/100 WBC (Bld) 4.8 % 0-5 [facility] Erythrocyte distribution wid th ratioOrdered By: Deric Lantigua on 03-09-2025 Erythrocyte distribution width (RBC) [Ratio] 16.3 % High 11.6-14.6 [facility] Erythrocyte distribution wid th standard deviationOrdered By: Deric Lantigua on 03-09-2025 Erythrocyte distribution width (RBC) [Ratio] 51.8 fl High 35.1-43.9 [facility] Glomerular filtration rate ( GFR) estimation/1.73 sq m using serum, plasma, or whole bOrdered By: Deric Lantigua on 03-09-2025 GFR/1.73 sq M.predicted among non-blacks MDRD (S/P/Bld) [Vol rate/Area] 26 mL/min/{1.73_m2} Low >60 [facility] Comment on above: mL/min/1.73m2 CKD-EP I Creatinine Equation (2020) Glucose measurement at bedsi deOrdered By: Deric Lantigua on 03-09-2025 Glucose [Mass/Vol] 184 mg/dL High 74-106 [facility] Comment on above: MANAGEMENT OF PATIEN T CARE PER NURSING PROTOCOL Hematocrit Auto (Bld) [Volum e fraction]Ordered By: Deric Lantigua on 03-09-2025 Hematocrit (Bld) [Volume fraction] 29.6 % Low 40-54 [facility] Hemoglobin measurementOrdere d By: Deric Lantigua on 03-09-2025 Hemoglobin (Bld) [Mass/Vol] 9.3 g/dL Low 13.0-16.5 [facility] Immature granulocytes/100 WB C Auto (Bld)Ordered By: Deric Lantigua on 03-09-2025 Immature granulocytes/100 WBC (Bld) 0.600 % 0.0-0.9 [facility] Comment on above: IG% - Immature Granu locytes (promyelocytes, myelocytes and metamyelocytes) > 1% indicates that a LEFT SHIFT is Present. MCV (mean corpuscular volume ) determinationOrdered By: Deric Lantigua on 03-09-2025 MCV (RBC) [Entitic vol] 87.6 fL 80-94 [facility] Mean corpuscular hemoglobin (MCH) determinationOrdered By: Deric Lantigua on 03-09-2025 MCH (RBC) [Entitic mass] 27.5 pg 27.0-32.0 [facility] Mean corpuscular hemoglobin concentration (MCHC) determinationOrdered By: Deric Lantigua on 03-09-2025 MCHC (RBC) [Mass/Vol] 31.4 g/dL Low 32-36 [facility] Mean platelet volume determi nationOrdered By: Deric Lantigua on 03-09-2025 Platelet mean volume (Bld) [Entitic vol] 10.0 fL 6.2-12.0 [facility] Monocyte percentageOrdered B y: Deric Lantigua on 03-09-2025 Monocytes/100 WBC (Bld) 12.1 % High 0-10 [facility] Neutrophil percentageOrdered By: Deric Lantigua on 03-09-2025 Neutrophils/100 WBC (Bld) 72.6 % High 47-70 [facility] Nucleated red blood cell per centageOrdered By: Deric Lantigua on 03-09-2025 Nucleated RBC/100 WBC (Bld) [Ratio] 0 % 0-5 [facility] Platelet countOrdered By: Silvia Lantigua on 03-09-2025 Platelets (Bld) [#/Vol] 162 10*3/uL 150-450 [facility] Potassium measurement (mass/ volume)Ordered By: Deric Lantigua on 03-09-2025 Potassium (Unsp spec) [Mass/Vol] 4.3 mmol/L 3.3-5.1 [facility] RBC Auto (Bld) [#/Vol]Ordere d By: Deric Lantigua on 03-09-2025 RBC (Bld) [#/Vol] 3.38 10*6/uL Low 4.6-6.2 [facility] Serum creatinine measurement (mass/volume)Ordered By: Deric Lantigua on 03-09-2025 Creatinine [Mass/Vol] 2.41 mg/dL High 0.70-1.20 [facility] Serum glucose measurement (m ass/volume)Ordered By: Deric Lantigua on 03-09-2025 Glucose [Mass/Vol] 118 mg/dL High 70-99 [facility] Serum or plasma calcium kingsley urement (mass/volume)Ordered By: Deric Lantigua on 03-09-2025 Calcium [Mass/Vol] 9.0 mg/dL 7.6-11.0 [facility] Serum or plasma urea nitroge n measurement (mass/volume)Ordered By: Deric Lantigua on 03-09-2025 Urea nitrogen [Mass/Vol] 50 mg/dL High 4-19 [facility] Sodium levelOrdered By: Mikki Lantigua on 03-09-2025 Sodium [Moles/Vol] 138 mmol/L 133-145 [facility] White blood cell (WBC) count Ordered By: Deric Lantigua on 03-09-2025 WBC (Bld) [#/Vol] 5.5 10*3/uL 4.4-11.0 [facility] Basic Metabolic Profile (BMP )on 03-08-2025 BUN/CRE 19.9 RATIO Normal 10-20 [facility] Comment on above: Performed By: #### L 500.2500 ####[facility] [address] [place], [address] Calcium [Mass/Vol] 8.8 mg/dL Normal 7.6-11.0 [facility] Comment on above: Performed By: #### L 500.2500 ####[facility] [address] [place], [address] Chloride [Moles/Vol] 99 mmol/L Normal 98-108 [facility] Comment on above: Performed By: #### L 500.2500 ####[facility] [address] [place], [address] CO2 [Moles/Vol] 27.0 mmol/L Normal 21.0-32.0 [facility] Comment on above: Performed By: #### L 500.2500 ####[facility] [address] [place], [address] Creatinine [Mass/Vol] 3.11 mg/dL High 0.70-1.20 [facility] Comment on above: Performed By: #### L 500.2500 ####[facility] [address] [place], [address] ECRCL 17.10 ml/min Low 50-250 [facility] Comment on above: Performed By: #### L 500.2500 ####[facility] [address] [place], [address] GAP 10 Normal 5-15 [facility] Comment on above: Performed By: #### L 500.2500 ####[facility] [address] [place], [address] GFR/1.73 sq M.predicted among non-blacks MDRD (S/P/Bld) [Vol rate/Area] 19 mL/min/{1.73_m2} Low >60 [facility] Comment on above: Result Comment: mL/m in/1.73m2 CKD-EPI Creatinine Equation (2020) Performed By: #### L 500.2500 ####[facility] [address] [place], [address] Glucose [Mass/Vol] 127 mg/dL High 70-99 [facility] Comment on above: Performed By: #### L 500.2500 ####[facility] [address] [place], [address] Potassium [Moles/Vol] 5.3 mmol/L High 3.3-5.1 [facility] Comment on above: Performed By: #### L 500.2500 ####[facility] [address] [place], [address] Sodium [Moles/Vol] 135 mmol/L Normal 133-145 [facility] Comment on above: Performed By: #### L 500.2500 ####[facility] [address] [place], [address] Urea nitrogen [Mass/Vol] 62 mg/dL High 4-19 [facility] Comment on above: Performed By: #### L 500.2500 ####[facility] [address] [place], [address] Bedside Glucoseon 03-08-2025 FINGERSTICK GLU 132 mg/dL High 74-106 [facility] Comment on above: Result Comment: KODY GEMENT OF PATIENT CARE PER NURSING PROTOCOL Performed By: #### L 501.080 ####[facility] [address] [place], [address] FINGERSTICK GLU 128 mg/dL High 74-106 [facility] Comment on above: Result Comment: KODY GEMENT OF PATIENT CARE PER NURSING PROTOCOL Performed By: #### L 501.080 ####[facility] [address] [place], [address] FINGERSTICK GLU 142 mg/dL High 74-106 [facility] Comment on above: Result Comment: KODY GEMENT OF PATIENT CARE PER NURSING PROTOCOL Performed By: #### L 501.080 ####[facility] [address] [place], [address] FINGERSTICK GLU 122 mg/dL High 74-106 [facility] Comment on above: Result Comment: KODY GEMENT OF PATIENT CARE PER NURSING PROTOCOL Performed By: #### L 501.080 ####[facility] [address] [place], [address] Magnesiumon 03-08-2025 Magnesium [Mass/Vol] 2.3 mg/dL High 1.5-2.2 [facility] Comment on above: Performed By: #### L 501.5200 ####[facility] [address] [place], [address] Magnesium measurement (mass/ volume)Ordered By: Nicola Madison on 03-08-2025 Magnesium (Unsp spec) [Mass/Vol] 2.3 mg/dL High 1.5-2.2 [facility] Potassiumon 03-08-2025 Potassium [Moles/Vol] 5.5 mmol/L High 3.3-5.1 [facility] Comment on above: Performed By: #### L 501.5600 ####[facility] [address] [place], [address] Basic Metabolic Profile (BMP )on 03-07-2025 BUN/CRE 18.2 RATIO Normal -20 [facility] Comment on above: Performed By: #### L 500.2500 ####[facility] [address] [place], [address] Calcium [Mass/Vol] 8.7 mg/dL Normal 7.6-11.0 [facility] Comment on above: Performed By: #### L 500.2500 ####[facility] [address] [place], [address] Chloride [Moles/Vol] 97 mmol/L Low 98-108 [facility] Comment on above: Performed By: #### L 500.2500 ####[facility] [address] [place], [address] CO2 [Moles/Vol] 26.3 mmol/L Normal 21.0-32.0 [facility] Comment on above: Performed By: #### L 500.2500 ####[facility] [address] [place], [address] Creatinine [Mass/Vol] 3.09 mg/dL High 0.70-1.20 [facility] Comment on above: Performed By: #### L 500.2500 ####[facility] [address] [place], [address] ECRCL 17.21 ml/min Low 50-250 [facility] Comment on above: Performed By: #### L 500.2500 ####[facility] [address] [place], [address] GAP 10 Normal 5-15 [facility] Comment on above: Performed By: #### L 500.2500 ####[facility] [address] [place], [address] GFR/1.73 sq M.predicted among non-blacks MDRD (S/P/Bld) [Vol rate/Area] 20 mL/min/{1.73_m2} Low >60 [facility] Comment on above: Result Comment: mL/m in/1.73m2 CKD-EPI Creatinine Equation (2020) Performed By: #### L 500.2500 ####[facility] [address] [place], [address] Glucose [Mass/Vol] 126 mg/dL High 70-99 [facility] Comment on above: Performed By: #### L 500.2500 ####[facility] [address] [place], [address] Potassium [Moles/Vol] 4.8 mmol/L Normal 3.3-5.1 [facility] Comment on above: Performed By: #### L 500.2500 ####[facility] [address] [place], [address] Sodium [Moles/Vol] 134 mmol/L Normal 133-145 [facility] Comment on above: Performed By: #### L 500.2500 ####[facility] [address] [place], [address] Urea nitrogen [Mass/Vol] 56 mg/dL High 4-19 [facility] Comment on above: Performed By: #### L 500.2500 ####[facility] [address] [place], [address] Bedside Glucoseon 03-07-2025 FINGERSTICK GLU 151 mg/dL High 74-106 [facility] Comment on above: Result Comment: KODY GEMENT OF PATIENT CARE PER NURSING PROTOCOL Performed By: #### L 501.080 ####[facility] [address] [place], [address] FINGERSTICK GLU 191 mg/dL High 74-106 [facility] Comment on above: Result Comment: KODY GEMENT OF PATIENT CARE PER NURSING PROTOCOL Performed By: #### L 501.080 ####[facility] [address] [place], [address] FINGERSTICK GLU 184 mg/dL High 74-106 [facility] Comment on above: Result Comment: KODY GEMENT OF PATIENT CARE PER NURSING PROTOCOL Performed By: #### L 501.080 ####[facility] [address] [place], [address] FINGERSTICK GLU 127 mg/dL High 74-106 [facility] Comment on above: Result Comment: KODY STRONG OF PATIENT CARE PER NURSING PROTOCOL Performed By: #### L 501.080 ####[facility] [address] [place], [address] Urine Cultureon 03-07-2025 [facility] Comments: On UA samp le of 03/04 Culture exhibits no growth. Normal [facility] Comment on above: Performed By: #### M 100.2200 ####[facility] [address] [place], [address] Basic Metabolic Profile (BMP )on 03-06-2025 BUN/CRE 17.8 RATIO Normal 10-20 [facility] Comment on above: Performed By: #### L 500.2500, L501.2300 ####[facility] [address] [place], [address] Calcium [Mass/Vol] 9.1 mg/dL Normal 7.6-11.0 [facility] Comment on above: Performed By: #### L 500.2500, L501.2300 ####[facility] [address] [place], [address] Chloride [Moles/Vol] 99 mmol/L Normal 98-108 [facility] Comment on above: Performed By: #### L 500.2500, L501.2300 ####[facility] [address] [place], [address] CO2 [Moles/Vol] 31.2 mmol/L Normal 21.0-32.0 [facility] Comment on above: Performed By: #### L 500.2500, L501.2300 ####[facility] [address] [place], [address] Creatinine [Mass/Vol] 2.23 mg/dL High 0.70-1.20 [facility] Comment on above: Performed By: #### L 500.2500, L501.2300 ####[facility] [address] [place], [address] ECRCL 23.84 ml/min Low 50-250 [facility] Comment on above: Performed By: #### L 500.2500, L501.2300 ####[facility] [address] [place], [address] GAP 8 Normal 5-15 [facility] Comment on above: Performed By: #### L 500.2500, L501.2300 ####[facility] [address] [place], [address] GFR/1.73 sq M.predicted among non-blacks MDRD (S/P/Bld) [Vol rate/Area] 29 mL/min/{1.73_m2} Low >60 [facility] Comment on above: Result Comment: mL/m in/1.73m2 CKD-EPI Creatinine Equation (2020) Performed By: #### L 500.2500, L501.2300 ####[facility] [address] [place], [address] Glucose [Mass/Vol] 118 mg/dL High 70-99 [facility] Comment on above: Performed By: #### L 500.2500, L501.2300 ####[facility] [address] [place], [address] Potassium [Moles/Vol] 4.7 mmol/L Normal 3.3-5.1 [facility] Comment on above: Performed By: #### L 500.2500, L501.2300 ####[facility] [address] [place], [address] Sodium [Moles/Vol] 138 mmol/L Normal 133-145 [facility] Comment on above: Performed By: #### L 500.2500, L501.2300 ####[facility] [address] [place], [address] Urea nitrogen [Mass/Vol] 40 mg/dL High 4-19 [facility] Comment on above: Performed By: #### L 500.2500, L501.2300 ####[facility] [address] [place], [address] Bedside Glucoseon 03-06-2025 FINGERSTICK GLU 146 mg/dL High 74-106 [facility] Comment on above: Result Comment: KODY GEMENT OF PATIENT CARE PER NURSING PROTOCOL Performed By: #### L 501.080 ####[facility] [address] [place], [address] FINGERSTICK GLU 117 mg/dL High 74-106 [facility] Comment on above: Result Comment: KODY GEMENT OF PATIENT CARE PER NURSING PROTOCOL Performed By: #### L 501.080 ####[facility] [address] [place], [address] FINGERSTICK GLU 229 mg/dL High 74-106 [facility] Comment on above: Result Comment: KODY GEMENT OF PATIENT CARE PER NURSING PROTOCOL Performed By: #### L 501.080 ####[facility] [address] [place], [address] FINGERSTICK GLU 109 mg/dL High 74-106 [facility] Comment on above: Result Comment: KODY GEMENT OF PATIENT CARE PER NURSING PROTOCOL Performed By: #### L 501.080 ####[facility] [address] [place], [address] FINGERSTICK GLU 140 mg/dL High 74-106 [facility] Comment on above: Result Comment: KODY GEMENT OF PATIENT CARE PER NURSING PROTOCOL Performed By: #### L 501.080 ####[facility] [address] [place], [address] Consultation - Cardiologyon 03-06-2025 Consultation - Cardiology Normal [facility] Phosphoruson 03-06-2025 Phosphate [Mass/Vol] 3.9 mg/dL Normal 2.7-4.5 [facility] Comment on above: Performed By: #### L 500.2500, L501.2300 ####[facility] [address] [place], [address] Urine cultureOrdered By: Kavita Lantigua on 03-06-2025 Bacteria identified Cx Nom (U) Culture exhibits no growth. [facility] Bedside Glucoseon 03-05-2025 FINGERSTICK GLU 111 mg/dL High 74-106 [facility] Comment on above: Result Comment: KODY GEMENT OF PATIENT CARE PER NURSING PROTOCOL Performed By: #### L 501.080 ####[facility] [address] [place], [address] FINGERSTICK GLU 152 mg/dL High 74-106 [facility] Comment on above: Result Comment: KODY GEMENT OF PATIENT CARE PER NURSING PROTOCOL Performed By: #### L 501.080 ####[facility] [address] [place], [address] FINGERSTICK GLU 159 mg/dL High 74-106 [facility] Comment on above: Result Comment: KODY GEMENT OF PATIENT CARE PER NURSING PROTOCOL Performed By: #### L 501.080 ####[facility] [address] [place], [address] Bilirubin, totalOrdered By: Nicola Madison on 03-05-2025 Bilirubin [Mass/Vol] 0.46 mg/dL 0.00-1.30 [facility] CBC W/Diff, Automatedon 02-17 Absolute Lymph 0.72 X10 3/uL Low 0.83-4.51 [facility] Comment on above: Performed By: #### L 501.2300, L100.0100 ####[facility] [address] [place], [address] Absolute Neut 5.8 X10 3/uL Normal 2.0-7.7 [facility] Comment on above: Performed By: #### L 501.2300, L100.0100 ####[facility] [address] [place], [address] Basophils/100 WBC (Bld) 0.4 % Normal 0-1 [facility] Comment on above: Performed By: #### L 501.2300, L100.0100 ####[facility] [address] [place], [address] Eosinophils/100 WBC (Bld) 2.0 % Normal 0-5 [facility] Comment on above: Performed By: #### L 501.2300, L100.0100 ####[facility] [address] [place], [address] Erythrocyte distribution width (RBC) [Ratio] 16.6 % High 11.6-14.6 [facility] [place] Comment on above: Performed By: #### L 501.2300, L100.0100 ####[facility] [address] [place], [address] Hematocrit (Bld) [Volume fraction] 30.1 % Low 40-54 [facility] Comment on above: Performed By: #### L 501.2300, L100.0100 ####[facility] [address] [place], [address] Hemoglobin (Bld) [Mass/Vol] 9.3 g/dL Low 13.0-16.5 [facility] Comment on above: Performed By: #### L 501.2300, L100.0100 ####[facility] [address] [place], [address] IG% 0.300 Normal 0.0-0.9 [facility] Comment on above: Result Comment: IG% - Immature Granulocytes (promyelocytes, myelocytes andmetamyelocytes) > 1% indicates that a LEFT SHIFT is Present. Performed By: #### L 501.2300, L100.0100 ####[facility] [address] [place], [address] Lymphocytes/100 WBC (Bld) 9.5 % Low 19-41 [facility] Comment on above: Performed By: #### L 501.2300, L100.0100 ####[facility] [address] [place], [address] MCH (RBC) [Entitic mass] 27.0 pg Normal 27.0-32.0 [facility] Comment on above: Performed By: #### L 501.2300, L100.0100 ####[facility] [address] [place], [address] MCHC (RBC) [Mass/Vol] 30.9 g/dL Low 32-36 [facility] Comment on above: Performed By: #### L 501.2300, L100.0100 ####[facility] [address] [place], [address] MCV (RBC) [Entitic vol] 87.5 fL Normal 80-94 [facility] Comment on above: Performed By: #### L 501.2300, L100.0100 ####[facility] [address] [place], [address] Monocytes/100 WBC (Bld) 11.4 % High 0-10 [facility] Comment on above: Performed By: #### L 501.2300, L100.0100 ####[facility] [address] [place], [address] Neutrophils/100 WBC (Bld) 76.4 % High 47-70 [facility] Comment on above: Performed By: #### L 501.2300, L100.0100 ####[facility] [address] [place], [address] Nucleated RBC (Bld) [#/Vol] 0 10*3/uL Normal 0-5 [facility] Comment on above: Performed By: #### L 501.2300, L100.0100 ####[facility] [address] [place], [address] Platelet mean volume (Bld) [Entitic vol] 10.7 fL Normal 6.2-12.0 [facility] Comment on above: Performed By: #### L 501.2300, L100.0100 ####[facility] [address] [place], [address] Platelets (Bld) [#/Vol] 181 10*3/uL Normal 150-450 [facility] Comment on above: Performed By: #### L 501.2300, L100.0100 ####[facility] [address] [place], [address] RBC (Bld) [#/Vol] 3.44 10*6/uL Low 4.6-6.2 [facility] Comment on above: Performed By: #### L 501.2300, L100.0100 ####[facility] [address] [place], [address] RDW SD 52.8 fl High 35.1-43.9 [facility] Comment on above: Performed By: #### L 501.2300, L100.0100 ####[facility] [address] [place], [address] WBC (Bld) [#/Vol] 7.6 10*3/uL Normal 4.4-11.0 [facility] Comment on above: Performed By: #### L 501.2300, L100.0100 ####[facility] [address] [place], [address] Calculated very low density lipoprotein (VLDL) cholesterol measurementOrdered By: Nicola Madison on 03-05-2025 Calculated very low density lipoprotein (VLDL) cholesterol measurement 16 mg/dL 5-40 [facility] Chest 1 View (Portable)on Chest 1 View (Portable) Normal [facility] Comprehensive Metabolic Prof ilon 03-05-2025 Albumin [Mass/Vol] 3.4 g/dL Normal 3.4-4.8 [facility] Comment on above: Performed By: #### L 500.4050, L503.7505, L500.4100 ####[facility] [address] [place], [address] Albumin/Globulin [Mass ratio] 0.9 {ratio} Normal 0.9-2.4 [facility] Comment on above: Performed By: #### L 500.4050, L503.7505, L500.4100 ####[facility] [address] [place], [address] ALK PHOS 75 U/L Normal 40-129 [facility] Comment on above: Performed By: #### L 500.4050, L503.7505, L500.4100 ####[facility] [address] [place], [address] ALT [Catalytic activity/Vol] 10 U/L Normal <=46 [facility] Comment on above: Performed By: #### L 500.4050, L503.7505, L500.4100 ####[facility] [address] [place], [address] AST [Catalytic activity/Vol] 15 U/L Normal <=37 [facility] Comment on above: Performed By: #### L 500.4050, L503.7505, L500.4100 ####[facility] [address] [place], [address] Bilirubin [Mass/Vol] 0.46 mg/dL Normal 0.00-1.30 [facility] Comment on above: Performed By: #### L 500.4050, L503.7505, L500.4100 ####[facility] [address] [place], [address] BUN/CRE 18.6 RATIO Normal 10-20 [facility] Comment on above: Performed By: #### L 500.4050, L503.7505, L500.4100 ####[facility] [address] [place], [address] Calcium [Mass/Vol] 9.1 mg/dL Normal 7.6-11.0 [facility] Comment on above: Performed By: #### L 500.4050, L503.7505, L500.4100 ####[facility] [address] [place], [address] Chloride [Moles/Vol] 101 mmol/L Normal 98-108 [facility] Comment on above: Performed By: #### L 500.4050, L503.7505, L500.4100 ####[facility] [address] [place], [address] CO2 [Moles/Vol] 27.2 mmol/L Normal 21.0-32.0 [facility] Comment on above: Performed By: #### L 500.4050, L503.7505, L500.4100 ####[facility] [address] [place], [address] Creatinine [Mass/Vol] 1.95 mg/dL High 0.70-1.20 [facility] Comment on above: Performed By: #### L 500.4050, L503.7505, L500.4100 ####[facility] [address] [place], [address] ECRCL 27.26 ml/min Low 50-250 [facility] Comment on above: Performed By: #### L 500.4050, L503.7505, L500.4100 ####[facility] [address] [place], [address] GAP 10 Normal 5-15 [facility] Comment on above: Performed By: #### L 500.4050, L503.7505, L500.4100 ####[facility] [address] [place], [address] GFR/1.73 sq M.predicted among non-blacks MDRD (S/P/Bld) [Vol rate/Area] 34 mL/min/{1.73_m2} Low >60 [facility] Comment on above: Result Comment: mL/m in/1.73m2 CKD-EPI Creatinine Equation (2020) Performed By: #### L 500.4050, L503.7505, L500.4100 ####[facility] [address] [place], [address] Globulin (S) [Mass/Vol] 3.9 g/dL Normal 2.2-4.2 [facility] Comment on above: Performed By: #### L 500.4050, L503.7505, L500.4100 ####[facility] [address] [place], [address] Glucose [Mass/Vol] 171 mg/dL High 70-99 [facility] Comment on above: Performed By: #### L 500.4050, L503.7505, L500.4100 ####[facility] [address] [place], [address] Potassium [Moles/Vol] 5.0 mmol/L Normal 3.3-5.1 [facility] Comment on above: Performed By: #### L 500.4050, L503.7505, L500.4100 ####[facility] [address] [place], [address] Sodium [Moles/Vol] 138 mmol/L Normal 133-145 [facility] Comment on above: Performed By: #### L 500.4050, L503.7505, L500.4100 ####[facility] [address] [place], [address] T PROT 7.3 g/dL Normal 5.9-8.4 [facility] Comment on above: Performed By: #### L 500.4050, L503.7505, L500.4100 ####[facility] [address] [place], [address] Urea nitrogen [Mass/Vol] 36 mg/dL High 4-19 [facility] Comment on above: Performed By: #### L 500.4050, L503.7505, L500.4100 ####[facility] [address] [place], [address] Echocardiogram study reportO rdered By: Marjorie Green on 03-05-2025 Study report [facility] [address] [place] [address] Echo Complete W/ Contrast 03/05/25 0941 MR#: [id number] Acct: [id number] Name: PEDRO HILLMAN Rep #:[id number] : 1945 80 From: Marjorie Green MD Attending Dr: Dr. Deric Lantigua MD Status: ADM IN Ordering Dr: Nicola Lindsey DO Date: 03/04/25 Location: [facility] Sex: M C Admitted: 03/04/25 Reason For [...] Dr. Deric Lantigua MD ~ Date Dictated: 03/05/2541 Date Transcribed: 03/05/251151 Extract Puller: Signed [facility] Work Phone: [phone] 03-05-2025 Natriuretic peptide B (Bld) [Mass/Vol] 4176 pg/mL High <=1800 [facility] Comment on above: Result Comment: Hear t Failure Unlikely: < 300 pg/mLHeart Failure Likely< 50 Years: > 450 pg/mL50-75 Years: > 900 pg/mL>75 Years: > 1800 pg/mL Performed By: #### L 500.4050, L503.7505, L500.4100 ####[facility] [address] [place], [place], [id number] LDL calc ser/plasOrdered By: Nicola Madison on 03-05-2025 Cholesterol in LDL [Mass/Vol] 63 mg/dL [facility] Comment on above: Uboramriuc=358-387 m g/dL & Higher Rizu=121 mg/dL or greater Laboratory - Chemistry and C hemistry - challengeOrdered By: Nicola Madison on 03-05-2025 AST [Catalytic activity/Vol] 15 U/L <38 [facility] Lipid Profileon 03-05-2025 CHOL:HDL 3.04 Normal [facility] Comment on above: Performed By: #### L 500.4050, L503.7505, L500.4100 ####[facility] [address] [place], [address] Cholesterol [Mass/Vol] 117 mg/dL Normal <=200 [facility] Comment on above: Result Comment: Chol esterol level, Desirable <200 mg/dLBorderline high cholesterol 200-239 mg/dLHigh cholesterol >=240 mg/dLRecommendations of the NCEP Adult Treatment Panel for thefollowing risk-cutoff thresholds for the [place] [facility]. Performed By: #### L 500.4050, L503.7505, L500.4100 ####[facility] [address], [address] Cholesterol in HDL [Mass/Vol] 39 mg/dL Low [facility] Comment on above: Result Comment: Gia onal Cholesterol Education Program (NCEP) guidelines:<40 mg/dL: Low HDL-cholesterol (major risk factor for CHD)>= 60 mg/dL: High HDL-cholesterol (negative risk factor forCHD)HDL-cholesterol is affected by a number of factors, e.g.smoking, exercise, hormones, sex and age. Performed By: #### L 500.4050, L503.7505, L500.4100 ####[facility] [address] [place], [address] Cholesterol in LDL [Mass/Vol] 63 mg/dL Normal [facility] Comment on above: Result Comment: Bord hfsaud=082-259 mg/dL Higher Cehv=112 mg/dL or greater Performed By: #### L 500.4050, L503.7505, L500.4100 ####[facility] [address] [place], [address] Cholesterol in VLDL [Mass/Vol] 16 mg/dL Normal 5-40 [facility] Comment on above: Performed By: #### L 500.4050, L503.7505, L500.4100 ####[facility] [address] [place], [address] Triglyceride [Mass/Vol] 79 mg/dL Normal [facility] Comment on above: Result Comment: The drugs N-Acetylcysteine and Metamizole may falselydepress this assay.Normal range: <150 mg/dLBorderline High: 150-199 mg/dLHigh: 200-499 mg/dLVery High: >500 mg/dL Performed By: #### L 500.4050, L503.7505, L500.4100 ####[facility] [address] [place], [place], [address] Natriuretic peptide.B prohor girish N-Terminal [Mass/volume] in Serum or PlasmaOrdered By: Nicola Madison on 03-05-2025 Natriuretic peptide.B prohormone N-Terminal [Mass/Vol] 4176 pg/mL High <1800 [facility] Comment on above: Heart Failure Unlike ly: < 300 pg/mLHeart Failure Likely< 50 Years: > 450 pg/mL50-75 Years: > 900 pg/mL>75 Years: > 1800 pg/mL No Panel InformationOrdered By: Nicola Madison on 03-05-2025 15 U/L <38 [facility] Phosphoruson 03-05-2025 Phosphate [Mass/Vol] 3.3 mg/dL Normal 2.7-4.5 [facility] Comment on above: Performed By: #### L 501.2300, L100.0100 ####[facility] [address] [place], [address] Screening total cholesterol/ high density lipoprotein (HDL) cholesterol ratioOrdered By: Nicola Madison on 03-05-2025 Cholesterol.total/Choles terol in HDL [Mass ratio] 3.04 {ratio} [facility] Serum globulin measurementOr dered By: Nicola Madison on 03-05-2025 Globulin (S) [Mass/Vol] 3.9 g/dL 2.2-4.2 [facility] Serum or plasma alanine ortiz otransferase (ALT) measurementOrdered By: Nicola Madison on 03-05-2025 ALT [Catalytic activity/Vol] 10 U/L <47 [facility] Serum or plasma albumin kingsley urement (mass/volume)Ordered By: Nicola Madison on 03-05-2025 Albumin [Mass/Vol] 3.4 g/dL 3.4-4.8 [facility] Serum or plasma albumin/glob ulin mass ratioOrdered By: Nicola Madison on 03-05-2025 Albumin/Globulin [Mass ratio] 0.9 {ratio} 0.9-2.4 [facility] Serum or plasma alkaline roosevelt sphatase measurementOrdered By: Nicola Madison on 03-05-2025 ALP [Catalytic activity/Vol] 75 U/L 40-129 [facility] Serum or plasma cholesterol in HDL measurement (mass/volume)Ordered By: Nicola Madison on 03-05-2025 Cholesterol in HDL [Mass/Vol] 39 mg/dL Low >40 [facility] Comment on above: National Cholesterol Education Program (NCEP) guidelines:<40 mg/dL: Low HDL-cholesterol (major risk factor for CHD)>= 60 mg/dL: High HDL-cholesterol (negative risk factor for CHD)HDL-cholesterol is affected by a number of factors, e.g. smoking, exercise, hormones, sex and age. Serum or plasma cholesterol measurement (mass/volume)Ordered By: Nicola Madison on 03-05-2025 Cholesterol [Mass/Vol] 117 mg/dL <201 [facility] Comment on above: Cholesterol level, D esirable <200 mg/dLBorderline high cholesterol 200-239 mg/dLHigh cholesterol >=240 mg/dLRecommendations of the NCEP Adult Treatment Panel for the following risk-cutoff thresholds for the [place] population. Total proteinOrdered By: Jacob [place] on 03-05-2025 Protein [Mass/Vol] 7.3 g/dL 5.9-8.4 [facility] Triglycerides measurementOrd ered By: Nicola Madison on 03-05-2025 Triglyceride [Mass/Vol] 79 mg/dL <199 [facility] Comment on above: The drugs N-Acetylcy steine and Metamizole may falsely depress this assay. Normal range: <150 mg/dLBorderline High: 150-199 mg/dLHigh: 200-499 mg/dLVery High: >500 mg/dL Absolute lymphocyte countOrd ered By: Chris Ochoa on 03-04-2025 Lymphocytes Auto (Unsp spec) [#/Vol] 0.77 10*3/uL Low 0.83-4.51 [facility] Absolute neutrophil countOrd ered By: Chris Ochoa on 03-04-2025 Neutrophils (Bld) [#/Vol] 6.0 10*3/uL 2.0-7.7 [facility] Anion gap in Serum or Plasma Ordered By: Chris Ochoa on 03-04-2025 Anion gap [Moles/Vol] 8 mmol/L 5- [facility] Automated lymphocyte count a s percentage of total leukocytesOrdered By: Chris Ochoa on 03-04-2025 Lymphocytes/100 WBC Auto (Unsp spec) 10.1 % Low 19-41 [facility] BUN/creatinine ratioOrdered By: Chris Ochoa on 03-04-2025 Urea nitrogen/Creatinine [Mass ratio] 19.7 mg/mg 10- [facility] Basic Metabolic Profile (BMP )on 03-04-2025 BUN/CRE 19.7 RATIO Normal - [facility] Comment on above: Performed By: #### L 501.4021, L100.0100, L500.2500, L503.7505 ####[facility] [address] [place], [place], [id number] Calcium [Mass/Vol] 9.3 mg/dL Normal 7.6-11.0 [facility] Comment on above: Performed By: #### L 501.4021, L100.0100, L500.2500, L503.7505 ####[facility] [address] [place], [address] Chloride [Moles/Vol] 102 mmol/L Normal 98-108 [facility] Comment on above: Performed By: #### L 501.4021, L100.0100, L500.2500, L503.7505 ####[facility] [address] [place], [address] CO2 [Moles/Vol] 28.6 mmol/L Normal 21.0-32.0 [facility] Comment on above: Performed By: #### L 501.4021, L100.0100, L500.2500, L503.7505 ####[facility] [address] [place], [address] Creatinine [Mass/Vol] 1.86 mg/dL High 0.70-1.20 [facility] Comment on above: Performed By: #### L 501.4021, L100.0100, L500.2500, L503.7505 ####[facility] [address] [place], [address] ECRCL 28.58 ml/min Low 50-250 [facility] Comment on above: Performed By: #### L 501.4021, L100.0100, L500.2500, L503.7505 ####[facility] [address] [place], [address] GAP 8 Normal 5-15 [facility] Comment on above: Performed By: #### L 501.4021, L100.0100, L500.2500, L503.7505 ####[facility] [address] [place], [address] GFR/1.73 sq M.predicted among non-blacks MDRD (S/P/Bld) [Vol rate/Area] 36 mL/min/{1.73_m2} Low >60 [facility] Comment on above: Result Comment: mL/m in/1.73m2 CKD-EPI Creatinine Equation (2020) Performed By: #### L 501.4021, L100.0100, L500.2500, L503.7505 ####[facility] [address] [place], [address] Glucose [Mass/Vol] 124 mg/dL High 70-99 [facility] Comment on above: Performed By: #### L 501.4021, L100.0100, L500.2500, L503.7505 ####[facility] [address] [place], [address] Potassium [Moles/Vol] 5.2 mmol/L High 3.3-5.1 [facility] Comment on above: Performed By: #### L 501.4021, L100.0100, L500.2500, L503.7505 ####[facility] [address] [place], [address] Sodium [Moles/Vol] 138 mmol/L Normal 133-145 [facility] Comment on above: Performed By: #### L 501.4021, L100.0100, L500.2500, L503.7505 ####[facility] [address] [place], [address] Urea nitrogen [Mass/Vol] 37 mg/dL High 4-19 [facility] Comment on above: Performed By: #### L 501.4021, L100.0100, L500.2500, L503.7505 ####[facility] [address] [place], [address] Basophil percentageOrdered B y: Chris Ochoa on 03-04-2025 Basophils/100 WBC (Bld) 0.4 % 0-1 [facility] Bedside Glucoseon 03-04-2025 FINGERSTICK GLU 80 mg/dL Normal 74-106 [facility] Comment on above: Result Comment: KODY STRONG OF PATIENT CARE PER NURSING PROTOCOL Performed By: #### L 501.080 ####[facility] [address] [place], [address] Bilirubin Test strip Ql (U)O rdered By: Nicola Madison on 03-04-2025 Bilirubin Ql (U) Negative Negative [facility] CBC W/Diff, Automatedon 02-17 Absolute Lymph 0.77 X10 3/uL Low 0.83-4.51 [facility] Comment on above: Performed By: #### L 501.4021, L100.0100, L500.2500, L503.7505 ####[facility] [address] [place], [address] Absolute Neut 6.0 X10 3/uL Normal 2.0-7.7 [facility] Comment on above: Performed By: #### L 501.4021, L100.0100, L500.2500, L503.7505 ####[facility] [address] [place], [address] Basophils/100 WBC (Bld) 0.4 % Normal 0-1 [facility] Comment on above: Performed By: #### L 501.4021, L100.0100, L500.2500, L503.7505 ####[facility] [address] [place], [address] Eosinophils/100 WBC (Bld) 1.6 % Normal 0-5 [facility] Comment on above: Performed By: #### L 501.4021, L100.0100, L500.2500, L503.7505 ####[facility] [address] [place], [address] Erythrocyte distribution width (RBC) [Ratio] 16.5 % High 11.6-14.6 [facility] Comment on above: Performed By: #### L 501.4021, L100.0100, L500.2500, L503.7505 ####[facility] [address] [place], [address] Hematocrit (Bld) [Volume fraction] 33.4 % Low 40-54 [facility] Comment on above: Performed By: #### L 501.4021, L100.0100, L500.2500, L503.7505 ####[facility] [address] [place], [address] Hemoglobin (Bld) [Mass/Vol] 10.1 g/dL Low 13.0-16.5 [facility] Comment on above: Performed By: #### L 501.4021, L100.0100, L500.2500, L503.7505 ####[facility] [address] [place], [address] IG% 0.700 Normal 0.0-0.9 [facility] Comment on above: Result Comment: IG% - Immature Granulocytes (promyelocytes, myelocytes andmetamyelocytes) > 1% indicates that a LEFT SHIFT is Present. Performed By: #### L 501.4021, L100.0100, L500.2500, L503.7505 ####[facility] [address] [place], [address] Lymphocytes/100 WBC (Bld) 10.1 % Low 19-41 [facility] Comment on above: Performed By: #### L 501.4021, L100.0100, L500.2500, L503.7505 ####[facility] [address] [place], [address] MCH (RBC) [Entitic mass] 27.0 pg Normal 27.0-32.0 [facility] Comment on above: Performed By: #### L 501.4021, L100.0100, L500.2500, L503.7505 ####[facility] [address] [place], [address] MCHC (RBC) [Mass/Vol] 30.2 g/dL Low 32-36 [facility] Comment on above: Performed By: #### L 501.4021, L100.0100, L500.2500, L503.7505 ####[facility] [address] [place], [address] MCV (RBC) [Entitic vol] 89.3 fL Normal 80-94 [facility] Comment on above: Performed By: #### L 501.4021, L100.0100, L500.2500, L503.7505 ####[facility] [address] [place], [address] Monocytes/100 WBC (Bld) 9.1 % Normal 0-10 [facility] Comment on above: Performed By: #### L 501.4021, L100.0100, L500.2500, L503.7505 ####[facility] [address] [place], [address] Neutrophils/100 WBC (Bld) 78.1 % High 47-70 [facility] Comment on above: Performed By: #### L 501.4021, L100.0100, L500.2500, L503.7505 ####[facility] [address] [place], [address] Nucleated RBC (Bld) [#/Vol] 0 10*3/uL Normal 0-5 [facility] Comment on above: Performed By: #### L 501.4021, L100.0100, L500.2500, L503.7505 ####[facility] [address] [place], [address] Platelet mean volume (Bld) [Entitic vol] 10.2 fL Normal 6.2-12.0 [facility] Comment on above: Performed By: #### L 501.4021, L100.0100, L500.2500, L503.7505 ####[facility] [address] [place], [address] Platelets (Bld) [#/Vol] 189 10*3/uL Normal 150-450 [facility] Comment on above: Performed By: #### L 501.4021, L100.0100, L500.2500, L503.7505 ####[facility] [address] [place], [address] RBC (Bld) [#/Vol] 3.74 10*6/uL Low 4.6-6.2 [facility] Comment on above: Performed By: #### L 501.4021, L100.0100, L500.2500, L503.7505 ####[facility] [address] [place], [address] RDW SD 54.2 fl High 35.1-43.9 [facility] Comment on above: Performed By: #### L 501.4021, L100.0100, L500.2500, L503.7505 ####[facility] [address] [place], [address] WBC (Bld) [#/Vol] 7.6 10*3/uL Normal 4.4-11.0 [facility] Comment on above: Performed By: #### L 501.4021, L100.0100, L500.2500, L503.7505 ####[facility] [address] [place], [address] Carbon dioxide, total [Moles /volume] in Central venous bloodOrdered By: Chris Ochoa on 03-04-2025 CO2 [Moles/Vol] 28.6 mmol/L 21.0-32.0 [facility] Chest PA and Lateralon 03-04 Chest PA and Lateral Normal [facility] Chloride assayOrdered By: Chino Ochoa on 03-04-2025 Chloride [Moles/Vol] 102 mmol/L 98-108 [facility] Echo Complete W/ Contraston 03-04-2025 Echo Complete W/ Contrast Normal [facility] Emergency Department Summary on 03-04-2025 Emergency Department Summary Normal [facility] Eosinophil percentageOrdered By: Chris Ochoa on 03-04-2025 Eosinophils/100 WBC (Bld) 1.6 % 0-5 [facility] Erythrocyte distribution wid th ratioOrdered By: Chris Ochoa on 03-04-2025 Erythrocyte distribution width (RBC) [Ratio] 16.5 % High 11.6-14.6 [facility] Erythrocyte distribution wid th standard deviationOrdered By: Chris Ochoa on 03-04-2025 Erythrocyte distribution width (RBC) [Ratio] 54.2 fl High 35.1-43.9 [facility] Glomerular filtration rate ( GFR) estimation/1.73 sq m using serum, plasma, or whole bOrdered By: Chris Ochoa on 03-04-2025 GFR/1.73 sq M.predicted among non-blacks MDRD (S/P/Bld) [Vol rate/Area] 36 mL/min/{1.73_m2} Low >60 [facility] Comment on above: mL/min/1.73m2 CKD-EP I Creatinine Equation (2020) H AND P Exam - Hospitaliston 03-04-2025 H&P Exam - Hospitalist Normal [facility] Hematocrit Auto (Bld) [Volum e fraction]Ordered By: Chris Ochoa on 03-04-2025 Hematocrit (Bld) [Volume fraction] 33.4 % Low 40-54 [facility] Hemoglobin A1con 03-04-2025 HbA1c (Bld) [Mass fraction] 6.3 % High <=5.6 [facility] Comment on above: Result Comment: Norm al < 5.7 % Prediabetic 5.7 - 6.4 % Diabetic >or= 6.5 % Please note range changes. Performed By: #### L 501.5200, L501.9985, L501.9520 ####[facility] [address] [place], [place], [id number] Hemoglobin A1c percentageOrd ered By: Nicola Madison on 03-04-2025 HbA1c (Bld) [Mass fraction] 6.3 % High <5.7 [facility] Comment on above: Normal < 5.7 % Predi abetic 5.7 - 6.4 % Diabetic >or= 6.5 % Please note range changes. Hemoglobin measurementOrdere d By: Chris Ochoa on 03-04-2025 Hemoglobin (Bld) [Mass/Vol] 10.1 g/dL Low 13.0-16.5 [facility] Immature granulocytes/100 WB C Auto (Bld)Ordered By: Chris Ochoa on 03-04-2025 Immature granulocytes/100 WBC (Bld) 0.700 % 0.0-0.9 [facility] Comment on above: IG% - Immature Granu locytes (promyelocytes, myelocytes and metamyelocytes) > 1% indicates that a LEFT SHIFT is Present. Ketones Test strip Ql (U)Ord ered By: Nicola Madison on 03-04-2025 Ketones Ql (U) Negative Negative [facility] L499.0042on 03-04-2025 Trop T High Sen 45 ng/L High <=22 [facility] Comment on above: Performed By: #### L 499.0042 ####[facility] [address] [place], [address] L499.0043on 03-04-2025 Trop T High Sen 42 ng/L High <=22 [facility] Comment on above: Performed By: #### L 499.0043 ####[facility] [address] [place], [address] L501.4021on 03-04-2025 Trop T High Sen 44 ng/L High <=22 [facility] Comment on above: Performed By: #### L 501.4021, L100.0100, L500.2500, L503.7505 ####[facility] [address] [place], [address] L503.7505on 03-04-2025 Natriuretic peptide B (Bld) [Mass/Vol] 3316 pg/mL High <=1800 [facility] Comment on above: Result Comment: Hear t Failure Unlikely: < 300 pg/mLHeart Failure Likely< 50 Years: > 450 pg/mL50-75 Years: > 900 pg/mL>75 Years: > 1800 pg/mL Performed By: #### L 501.4021, L100.0100, L500.2500, L503.7505 ####[facility] [address] [place], [address] MCV (mean corpuscular volume ) determinationOrdered By: Chris Ochoa on 03-04-2025 MCV (RBC) [Entitic vol] 89.3 fL 80-94 [facility] Magnesiumon 03-04-2025 Magnesium [Mass/Vol] 2.0 mg/dL Normal 1.5-2.2 [facility] Comment on above: Performed By: #### L 501.5200, L501.9985, L501.9520 ####[facility] [address] [place], [place], [id number] Mean corpuscular hemoglobin (MCH) determinationOrdered By: Chris Ochoa on 03-04-2025 MCH (RBC) [Entitic mass] 27.0 pg 27.0-32.0 [facility] Mean corpuscular hemoglobin concentration (MCHC) determinationOrdered By: Chris Ochoa on 03-04-2025 MCHC (RBC) [Mass/Vol] 30.2 g/dL Low 32-36 [facility] Mean platelet volume determi nationOrdered By: Chris Ochoa on 03-04-2025 Platelet mean volume (Bld) [Entitic vol] 10.2 fL 6.2-12.0 [facility] Microscopic analysis of urin e for red blood cells (RBC)Ordered By: Nicola Madison on 03-04-2025 Microscopic analysis of urine for red blood cells (RBC) 5-10 SEEN /hpf 0-5 [facility] Monocyte percentageOrdered B y: Chris Ochoa on 03-04-2025 Monocytes/100 WBC (Bld) 9.1 % 0-10 [facility] Mucus LM Ql (Urine sed)Order ed By: Nicola Madison on 03-04-2025 Mucus Ql (Urine sed) 0 SEEN /hpf [facility] Natriuretic peptide.B prohor girish N-Terminal [Mass/volume] in Serum or PlasmaOrdered By: Chris Ochoa on 03-04-2025 Natriuretic peptide.B prohormone N-Terminal [Mass/Vol] 3316 pg/mL High <1800 [facility] Comment on above: Heart Failure Unlike ly: < 300 pg/mLHeart Failure Likely< 50 Years: > 450 pg/mL50-75 Years: > 900 pg/mL>75 Years: > 1800 pg/mL Neutrophil percentageOrdered By: Chris Ochoa on 03-04-2025 Neutrophils/100 WBC (Bld) 78.1 % High 47-70 [facility] Nitrite Test strip Ql (U)Ord ered By: Nicola Madison on 03-04-2025 Nitrite Ql (U) Positive High Negative [facility] Nucleated red blood cell per centageOrdered By: Chris Ochoa on 03-04-2025 Nucleated RBC/100 WBC (Bld) [Ratio] 0 % 0-5 [facility] Platelet countOrdered By: Chino Ochoa on 03-04-2025 Platelets (Bld) [#/Vol] 189 10*3/uL 150-450 [facility] Potassium measurement (mass/ volume)Ordered By: Chris Ochoa on 03-04-2025 Potassium (Unsp spec) [Mass/Vol] 5.2 mmol/L High 3.3-5.1 [facility] Protein Test strip Ql (U)Ord ered By: Nicola Madison on 03-04-2025 Protein Ql (U) 100 mg/dl High Negative [facility] RBC Auto (Bld) [#/Vol]Ordere d By: Chris Ochoa on 03-04-2025 RBC (Bld) [#/Vol] 3.74 10*6/uL Low 4.6-6.2 [facility] Serum creatinine measurement (mass/volume)Ordered By: Chris Ochoa on 03-04-2025 Creatinine [Mass/Vol] 1.86 mg/dL High 0.70-1.20 [facility] Serum glucose measurement (m ass/volume)Ordered By: Chris Ochoa on 03-04-2025 Glucose [Mass/Vol] 124 mg/dL High 70-99 [facility] Serum or plasma calcium kingsley urement (mass/volume)Ordered By: Chris Ochoa on 03-04-2025 Calcium [Mass/Vol] 9.3 mg/dL 7.6-11.0 [facility] Serum or plasma urea nitroge n measurement (mass/volume)Ordered By: Chris Ochoa on 03-04-2025 Urea nitrogen [Mass/Vol] 37 mg/dL High 4-19 [facility] Sodium levelOrdered By: Chris Ochoa on 03-04-2025 Sodium [Moles/Vol] 138 mmol/L 133-145 [facility] Squamous epithelial cells de tection in urine sediment by light microscopyOrdered By: Nicola Madison on 03-04-2025 Epithelial cells.squamous LM Ql (Urine sed) 0 SEEN /hpf 0-5 [facility] TSH DL <= 0.005 mIU/L QnOrde red By: Nicola Madison on 03-04-2025 TSH Qn 3.780 uIU/mL 0.300-4.20 0 [facility] Thyroid Stim Hormone (TSH)on 03-04-2025 TSH 3.780 uIU/mL Normal 0.300-4.20 0 [facility] Comment on above: Performed By: #### L 501.5200, L501.9985, L501.9520 ####[facility] [address] [facility] [id number] Troponin T.cardiac [Mass/vol ume] in Serum or Plasma by High sensitivity methodOrdered By: Chris Ochoa on 03-04-2025 Troponin T.cardiac High sensitivity method [Mass/Vol] 42 ng/L High <22 [facility] Troponin T.cardiac High sensitivity method [Mass/Vol] 45 ng/L High <22 [facility] Troponin T.cardiac High sensitivity method [Mass/Vol] 44 ng/L High <22 [facility] Urinalysis, Completeon 03-04 RBC 5-10 SEEN Normal 0-5 [facility] Comment on above: Order Comment: CLEAN CATCH Performed By: #### L 400.0001 ####[facility] [address] [place], [place], [phone] BACTERIA 2+ /hpf Normal None Seen [facility] Comment on above: Order Comment: CLEAN CATCH Performed By: #### L 400.0001 ####[facility] [address] [place], [address] WBC >100 SEEN Normal 0-5 [facility] Comment on above: Order Comment: CLEAN CATCH Performed By: #### L 400.0001 ####[facility] [address] [place], [address] EPI,SQUAMOUS 0 SEEN Normal 0-5 [facility] Comment on above: Order Comment: CLEAN CATCH Performed By: #### L 400.0001 ####[facility] [address] [place], [address] Mucus Ql (Urine sed) 0 SEEN Normal [facility] Comment on above: Order Comment: CLEAN CATCH Performed By: #### L 400.0001 ####[facility] [address] [place], [place], [phone] Urine clarityOrdered By: Jacob Madison on 03-04-2025 Clarity (U) Cloudy Clear [facility] Urine color determinationOrd ered By: Nicola Madison on 03-04-2025 Color (U) Yellow Yellow [facility] Urine glucose detectionOrder ed By: Nicola Madison on 03-04-2025 Glucose Ql (U) Normal mg/dl Normal [facility] Urine leukocyte esterase det ection by dipstickOrdered By: Nicola Madison on 03-04-2025 Leukocyte esterase Test strip Ql (U) 500 /ul High Negative [facility] Urine pHOrdered By: Nicola stack on 03-04-2025 pH (U) 6.5 [pH] 5.0 - 8.0 [facility] Urine sediment bacteria coun t by microscopy (number/high power field)Ordered By: Nicola Madison on 03-04-2025 Bacteria LM.HPF (Urine sed) [#/Area] 2 /[HPF] None Seen [facility] Urine specific gravity measu rementOrdered By: Nicola Madison on 03-04-2025 Specific gravity (U) [Rel density] 1.010 1.002-1.03 0 [facility] Urine urobilinogen measureme ntOrdered By: Nicola Madison on 03-04-2025 Urobilinogen Ql (U) Normal mg/dl Normal [facility] White blood cell (WBC) count Ordered By: Chris Ochoa on 03-04-2025 WBC (Bld) [#/Vol] 7.6 10*3/uL 4.4-11.0 [facility] White blood cell countOrdere d By: Nicola Madison on 03-04-2025 White blood cell count >100 SEEN /hpf 0-5 [facility] Absolute lymphocyte countOrd ered By: Russ Zamora on 11-06-2024 Lymphocytes Auto (Unsp spec) [#/Vol] 0.82 10*3/uL Low 0.83-4.51 [facility] Absolute neutrophil countOrd ered By: Russ Zamora on 11-06-2024 Neutrophils (Bld) [#/Vol] 8.1 10*3/uL High 2.0-7.7 [facility] Anion gap in Serum or Plasma Ordered By: Russ Zamora on 11-06-2024 Anion gap [Moles/Vol] 10 mmol/L 5-15 [facility] Automated lymphocyte count a s percentage of total leukocytesOrdered By: Russ Zamora on 11-06-2024 Lymphocytes/100 WBC Auto (Unsp spec) 8.1 % Low 19-41 [facility] BUN/creatinine ratioOrdered By: Russ Zamora on 11-06-2024 Urea nitrogen/Creatinine [Mass ratio] 19.3 mg/mg 10- [facility] Basophil percentageOrdered B y: Russ Zamora on 11-06-2024 Basophils/100 WBC (Bld) 0.3 % 0-1 [facility] Bilirubin, totalOrdered By: Russ Zamora on 11-06-2024 Bilirubin [Mass/Vol] 0.46 mg/dL 0.00-1.30 [facility] CBC W/Diff, Automatedon 10-19 Absolute Lymph 0.82 X10 3/uL Low 0.83-4.51 [facility] Comment on above: Performed By: #### L 500.4050, L504.2610, L100.0100 ####[facility] [address] [place], [address] Absolute Neut 8.1 X10 3/uL High 2.0-7.7 [facility] Comment on above: Performed By: #### L 500.4050, L504.2610, L100.0100 ####[facility] [address] [place], [address] Basophils/100 WBC (Bld) 0.3 % Normal 0-1 [facility] Comment on above: Performed By: #### L 500.4050, L504.2610, L100.0100 ####[facility] [address] [place], [address] Eosinophils/100 WBC (Bld) 1.7 % Normal 0-5 [facility] Comment on above: Performed By: #### L 500.4050, L504.2610, L100.0100 ####[facility] [address] [place], [address] Erythrocyte distribution width (RBC) [Ratio] 16.8 % High 11.6-14.6 [facility] Comment on above: Performed By: #### L 500.4050, L504.2610, L100.0100 ####[facility] [address] [place], [address] Hematocrit (Bld) [Volume fraction] 34.2 % Low 40-54 [facility] Comment on above: Performed By: #### L 500.4050, L504.2610, L100.0100 ####[facility] [address] [place], [address] Hemoglobin (Bld) [Mass/Vol] 10.7 g/dL Low 13.0-16.5 [facility] Comment on above: Performed By: #### L 500.4050, L504.2610, L100.0100 ####[facility] [address] [place], [address] IG% 0.500 Normal 0.0-0.9 [facility] Comment on above: Result Comment: IG% - Immature Granulocytes (promyelocytes, myelocytes andmetamyelocytes) > 1% indicates that a LEFT SHIFT is Present. Performed By: #### L 500.4050, L504.2610, L100.0100 ####[facility] [address] [place], [address] Lymphocytes/100 WBC (Bld) 8.1 % Low 19-41 [facility] Comment on above: Performed By: #### L 500.4050, L504.2610, L100.0100 ####[facility] [address] [place], [address] MCH (RBC) [Entitic mass] 27.4 pg Normal 27.0-32.0 [facility] Comment on above: Performed By: #### L 500.4050, L504.2610, L100.0100 ####[facility] [address] [place], [address] MCHC (RBC) [Mass/Vol] 31.3 g/dL Low 32-36 [facility] Comment on above: Performed By: #### L 500.4050, L504.2610, L100.0100 ####[facility] [address] [place], [address] MCV (RBC) [Entitic vol] 87.5 fL Normal 80-94 [facility] Comment on above: Performed By: #### L 500.4050, L504.2610, L100.0100 ####[facility] [address] [place], [address] Monocytes/100 WBC (Bld) 8.8 % Normal 0-10 [facility] Comment on above: Performed By: #### L 500.4050, L504.2610, L100.0100 ####[facility] [address] [place], [address] Neutrophils/100 WBC (Bld) 80.6 % High 47-70 [facility] Comment on above: Performed By: #### L 500.4050, L504.2610, L100.0100 ####[facility] [address] [place], [address] Nucleated RBC (Bld) [#/Vol] 0 10*3/uL Normal 0-5 [facility] Comment on above: Performed By: #### L 500.4050, L504.2610, L100.0100 ####[facility] [address] [place], [address] Platelet mean volume (Bld) [Entitic vol] 10.4 fL Normal 6.2-12.0 [facility] Comment on above: Performed By: #### L 500.4050, L504.2610, L100.0100 ####[facility] [address] [place], [address] Platelets (Bld) [#/Vol] 212 10*3/uL Normal 150-450 [facility] Comment on above: Performed By: #### L 500.4050, L504.2610, L100.0100 ####[facility] [address] [place], [address] RBC (Bld) [#/Vol] 3.91 10*6/uL Low 4.6-6.2 [facility] Comment on above: Performed By: #### L 500.4050, L504.2610, L100.0100 ####[facility] [address] [place], [address] RDW SD 53.5 fl High 35.1-43.9 [facility] Comment on above: Performed By: #### L 500.4050, L504.2610, L100.0100 ####[facility] [address] [place], [address] WBC (Bld) [#/Vol] 10.1 10*3/uL Normal 4.4-11.0 [facility] Comment on above: Performed By: #### L 500.4050, L504.2610, L100.0100 ####[facility] [address] [place], [address] Carbon dioxide, total [Moles /volume] in Central venous bloodOrdered By: Russ Zamora on 11-06-2024 CO2 [Moles/Vol] 25.2 mmol/L 21.0-32.0 [facility] Chloride assayOrdered By: Flores Zamora on 11-06-2024 Chloride [Moles/Vol] 105 mmol/L 98-108 [facility] Comprehensive Metabolic Prof ilon 11-06-2024 Albumin [Mass/Vol] 3.8 g/dL Normal 3.4-4.8 [facility] Comment on above: Performed By: #### L 500.4050, L504.2610, L100.0100 ####[facility] [address] [place], [address] Albumin/Globulin [Mass ratio] 0.9 {ratio} Normal 0.9-2.4 [facility] Comment on above: Performed By: #### L 500.4050, L504.2610, L100.0100 ####[facility] [address] [place], [address] ALK PHOS 72 U/L Normal 40-129 [facility] Comment on above: Performed By: #### L 500.4050, L504.2610, L100.0100 ####[facility] [address] [place], [address] ALT [Catalytic activity/Vol] 10 U/L Normal <=46 [facility] Comment on above: Performed By: #### L 500.4050, L504.2610, L100.0100 ####[facility] [address] [place], [address] AST [Catalytic activity/Vol] 16 U/L Normal <=37 [facility] Comment on above: Performed By: #### L 500.4050, L504.2610, L100.0100 ####[facility] [address] [place], [address] Bilirubin [Mass/Vol] 0.46 mg/dL Normal 0.00-1.30 [facility] Comment on above: Performed By: #### L 500.4050, L504.2610, L100.0100 ####[facility] [address] [place], [address] BUN/CRE 19.3 RATIO Normal 10-20 [facility] Comment on above: Performed By: #### L 500.4050, L504.2610, L100.0100 ####[facility] [address] [place], [address] Calcium [Mass/Vol] 9.1 mg/dL Normal 7.6-11.0 [facility] Comment on above: Performed By: #### L 500.4050, L504.2610, L100.0100 ####[facility] [address] [place], [address] Chloride [Moles/Vol] 105 mmol/L Normal 98-108 [facility] Comment on above: Performed By: #### L 500.4050, L504.2610, L100.0100 ####[facility] [address] [place], [address] CO2 [Moles/Vol] 25.2 mmol/L Normal 21.0-32.0 [facility] Comment on above: Performed By: #### L 500.4050, L504.2610, L100.0100 ####[facility] [address] [place], [address] Creatinine [Mass/Vol] 1.87 mg/dL High 0.70-1.20 [facility] Comment on above: Performed By: #### L 500.4050, L504.2610, L100.0100 ####[facility] [address] [place], [address] ECRCL 32.00 ml/min Low 50-250 [facility] Comment on above: Performed By: #### L 500.4050, L504.2610, L100.0100 ####[facility] [address] [place], [address] GAP 10 Normal 5-15 [facility] Comment on above: Performed By: #### L 500.4050, L504.2610, L100.0100 ####[facility] [address] [place], [address] GFR/1.73 sq M.predicted among non-blacks MDRD (S/P/Bld) [Vol rate/Area] 36 mL/min/{1.73_m2} Low >60 [facility] Comment on above: Result Comment: mL/m in/1.73m2 CKD-EPI Creatinine Equation (2020) Performed By: #### L 500.4050, L504.2610, L100.0100 ####[facility] [address] [place], [address] Globulin (S) [Mass/Vol] 4.1 g/dL Normal 2.2-4.2 [facility] Comment on above: Performed By: #### L 500.4050, L504.2610, L100.0100 ####[facility] [address] [place], [address] Glucose [Mass/Vol] 132 mg/dL High 70-99 [facility] Comment on above: Performed By: #### L 500.4050, L504.2610, L100.0100 ####[facility] [address] [place], [address] Potassium [Moles/Vol] 4.8 mmol/L Normal 3.3-5.1 [facility] Comment on above: Performed By: #### L 500.4050, L504.2610, L100.0100 ####[facility] [address] [place], [address] Sodium [Moles/Vol] 140 mmol/L Normal 133-145 [facility] Comment on above: Performed By: #### L 500.4050, L504.2610, L100.0100 ####[facility] [address] [place], [address] T PROT 7.9 g/dL Normal 5.9-8.4 [facility] Comment on above: Performed By: #### L 500.4050, L504.2610, L100.0100 ####[facility] [address] [place], [address] Urea nitrogen [Mass/Vol] 36 mg/dL High 4-19 [facility] Comment on above: Performed By: #### L 500.4050, L504.2610, L100.0100 ####[facility] [address] [place], [address] Eosinophil percentageOrdered By: Russ Zamora on 11-06-2024 Eosinophils/100 WBC (Bld) 1.7 % 0-5 [facility] Erythrocyte distribution wid th ratioOrdered By: Russ Zamora on 11-06-2024 Erythrocyte distribution width (RBC) [Ratio] 16.8 % High 11.6-14.6 [facility] Erythrocyte distribution wid th standard deviationOrdered By: Russ Zamora on 11-06-2024 Erythrocyte distribution width (RBC) [Entitic vol] 53.5 fL High 35.1-43.9 [facility] Erythrocyte distribution width (RBC) [Ratio] 53.5 fl High 35.1-43.9 [facility] Estimation of creatinine rowdy aranceOrdered By: Russ Zamora on 11-06-2024 Estimated Creatinine Clearance Calc 32.00 ml/min Low 50-250 [facility] GFR/1.73 sq M.predicted kaylyn g non-blacks MDRD (S/P/Bld) [Vol rate/Area]Ordered By: Russ Zamora on 11-06-2024 Estimated GFR (MDRD) Non-Af Amer 36 Low >60 [facility] Comment on above: mL/min/1.73m2 CKD-EP I Creatinine Equation (2020) Glomerular filtration rate ( GFR) estimation/1.73 sq m using serum, plasma, or whole bOrdered By: Russ Zamora on 11-06-2024 GFR/1.73 sq M.predicted among non-blacks MDRD (S/P/Bld) [Vol rate/Area] 36 mL/min/{1.73_m2} Low >60 [facility] Comment on above: mL/min/1.73m2 CKD-EP I Creatinine Equation (2020) Hematocrit Auto (Bld) [Volum e fraction]Ordered By: Russ Zamora on 11-06-2024 Hematocrit (Bld) [Volume fraction] 34.2 % Low 40-54 [facility] Hemoglobin measurementOrdere d By: Russ Zamora on 11-06-2024 Hemoglobin (Bld) [Mass/Vol] 10.7 g/dL Low 13.0-16.5 [facility] Immature granulocytes/100 WB C Auto (Bld)Ordered By: Russ Zamora on 11-06-2024 Immature granulocytes/100 WBC (Bld) 0.500 % 0.0-0.9 [facility] Comment on above: IG% - Immature Granu locytes (promyelocytes, myelocytes and metamyelocytes) > 1% indicates that a LEFT SHIFT is Present. LDHon 11-06-2024 LDH 135 U/L Normal 87-241 [facility] Comment on above: Order Comment: 1 Performed By: #### L 500.4050, L504.2610, L100.0100 ####[facility] [address] [place], [address] Laboratory - Chemistry and C hemistry - challengeOrdered By: Russ Zamora on 11-06-2024 AST [Catalytic activity/Vol] 16 U/L <38 [facility] Lactate dehydrogenase (LDH) measurementOrdered By: Russ Zamora on 11-06-2024 LDH [Catalytic activity/Vol] 135 U/L 87-241 [facility] Lymphocytes Auto (Unsp spec) [#/Vol]Ordered By: Russ Zamora on 11-06-2024 Lymphocytes (Bld) [#/Vol] 0.82 10*3/uL Low 0.83-4.51 [facility] Lymphocytes/100 WBC Auto (Un sp spec)Ordered By: Russ Zamora on 11-06-2024 Lymphocytes/100 WBC (Bld) 8.1 % Low 19-41 [facility] MCV (mean corpuscular volume ) determinationOrdered By: Russ Zamora on 11-06-2024 MCV (RBC) [Entitic vol] 87.5 fL 80-94 [facility] Mean corpuscular hemoglobin (MCH) determinationOrdered By: Russ Zamora on 11-06-2024 MCH (RBC) [Entitic mass] 27.4 pg 27.0-32.0 [facility] Mean corpuscular hemoglobin concentration (MCHC) determinationOrdered By: Russ Zamora on 11-06-2024 MCHC (RBC) [Mass/Vol] 31.3 g/dL Low 32-36 [facility] Mean platelet volume determi nationOrdered By: Russ Zamora on 11-06-2024 Platelet mean volume (Bld) [Entitic vol] 10.4 fL 6.2-12.0 [facility] Monocyte percentageOrdered B y: Russ Zamora on 11-06-2024 Monocytes/100 WBC (Bld) 8.8 % 0-10 [facility] Neutrophil percentageOrdered By: Russ Zamora on 11-06-2024 Neutrophils/100 WBC (Bld) 80.6 % High 47-70 [facility] Nucleated red blood cell per centageOrdered By: Russ Zamora on 11-06-2024 Nucleated RBC/100 WBC (Bld) [Ratio] 0 % 0-5 [facility] Oncology Visit Reporton 10-19 Oncology Visit Report Normal [facility] Platelet countOrdered By: Flores Zamora on 11-06-2024 Platelets (Bld) [#/Vol] 212 10*3/uL 150-450 [facility] Potassium (Unsp spec) [Mass/ Vol]Ordered By: Russ Zamora on 11-06-2024 Potassium [Moles/Vol] 4.8 mmol/L 3.3-5.1 [facility] Potassium measurement (mass/ volume)Ordered By: Russ Zamora on 11-06-2024 Potassium (Unsp spec) [Mass/Vol] 4.8 mmol/L 3.3-5.1 [facility] RBC Auto (Bld) [#/Vol]Ordere d By: Russ Zamora on 11-06-2024 RBC (Bld) [#/Vol] 3.91 10*6/uL Low 4.6-6.2 [facility] Serum creatinine measurement (mass/volume)Ordered By: Russ Zamora on 11-06-2024 Creatinine [Mass/Vol] 1.87 mg/dL High 0.70-1.20 [facility] Serum globulin measurementOr dered By: Russ Zamora on 11-06-2024 Globulin (S) [Mass/Vol] 4.1 g/dL 2.2-4.2 [facility] Serum glucose measurement (m ass/volume)Ordered By: Rsus Zamora on 11-06-2024 Glucose [Mass/Vol] 132 mg/dL High 70-99 [facility] Serum or plasma alanine ortiz otransferase (ALT) measurementOrdered By: Russ Zamora on 11-06-2024 ALT [Catalytic activity/Vol] 10 U/L <47 [facility] Serum or plasma albumin kingsley urement (mass/volume)Ordered By: Russ Zamora on 11-06-2024 Albumin [Mass/Vol] 3.8 g/dL 3.4-4.8 [facility] Serum or plasma albumin/glob ulin mass ratioOrdered By: Russ Zamora on 11-06-2024 Albumin/Globulin [Mass ratio] 0.9 {ratio} 0.9-2.4 [facility] Serum or plasma alkaline roosevelt sphatase measurementOrdered By: Russ Zamora on 11-06-2024 ALP [Catalytic activity/Vol] 72 U/L 40-129 [facility] Serum or plasma calcium kingsley urement (mass/volume)Ordered By: Russ Zamora on 11-06-2024 Calcium [Mass/Vol] 9.1 mg/dL 7.6-11.0 [facility] Serum or plasma urea nitroge n measurement (mass/volume)Ordered By: Russ Zamora on 11-06-2024 Urea nitrogen [Mass/Vol] 36 mg/dL High 4-19 [facility] Sodium levelOrdered By: Esau Zamora on 11-06-2024 Sodium [Moles/Vol] 140 mmol/L 133-145 [facility] Total proteinOrdered By: Frantz Zamora on 11-06-2024 Protein [Mass/Vol] 7.9 g/dL 5.9-8.4 [facility] White blood cell (WBC) count Ordered By: Russ Zamora on 11-06-2024 WBC (Bld) [#/Vol] 10.1 10*3/uL 4.4-11.0 [facility] CREATININE FINGERSTICKon Creatinine [Mass/Vol] 1.5 mg/dL High 0.70-1.30 [facility] Comment on above: Performed By: #### L 9100.0200 ####[facility] [address] [place], [address] GFR/1.73 sq M.predicted among non-blacks MDRD (S/P/Bld) [Vol rate/Area] 48.0000 mL/min/{1.73_m2} Low >60 [facility] Comment on above: Performed By: #### L 9100.0200 ####[facility] [address] [place], [place], [id number] CT Chest AND Abd W/ Contrast on 10-30-2024 CT Chest AND Abd W/ Contrast Normal [facility] Creatinine measurement at be dsideOrdered By: Russ Zamora on 10-30-2024 Creatinine [Mass/Vol] 1.5 mg/dL High 0.70-1.30 [facility] EGFROrdered By: Russ Zamora on 10-30-2024 GFR/1.73 sq M.predicted among non-blacks MDRD (S/P/Bld) [Vol rate/Area] 48.0000 mL/min/{1.73_m2} Low >60 [facility] Pulmonary Visit Reporton Pulmonary Visit Report Normal [facility] Hemoglobin A1con 10-21-2024 HbA1c (Bld) [Mass fraction] 6.6 % Normal <=5.6 [facility] Comment on above: Performed By: #### L 501.9985 ####[facility] [address] [place], [place], [id number] Hemoglobin A1c percentageOrd ered By: Tonio Fajardo on 10-20-2024 HbA1c (Bld) [Mass fraction] 6.6 % >5.7 [facility] 6 Minute Walk Teston 025 6 Minute Walk Test Normal [facility] Absolute neutrophil countOrd ered By: Leslie Arriaga on 09-25-2024 Neutrophils (Bld) [#/Vol] 6.7 10*3/uL 2.0-7.7 [facility] BNP (brain natriuretic pepti de measurement)Ordered By: Leslie Arriaga on 09-25-2024 Natriuretic peptide B (Bld) [Mass/Vol] 183.7 pg/mL High 0-100 [facility] BNP,B-Type NATRIURETIC PEPTI Adrienne 09-25-2024 Natriuretic peptide B (Bld) [Mass/Vol] 183.7 pg/mL High 0-100 [facility] Comment on above: Performed By: #### L 503.6620, L500.2500, L100.0100 ####[facility] [address] [place], [address] Basic Metabolic Profile (BMP )on 09-25-2024 BUN/CRE 15.4 RATIO Normal 10-20 [facility] Comment on above: Performed By: #### L 503.6620, L500.2500, L100.0100 ####[facility] [address] [place], [address] CA,Total 9.1 mg/dL Normal 8.5-10.1 [facility] Comment on above: Performed By: #### L 503.6620, L500.2500, L100.0100 ####[facility] [address] [place], [address] Chloride [Moles/Vol] 105 mmol/L Normal 98-107 [facility] Comment on above: Performed By: #### L 503.6620, L500.2500, L100.0100 ####[facility] [address] [place], [address] CO2 [Moles/Vol] 28.0 mmol/L Normal 21.0-32.0 [facility] Comment on above: Performed By: #### L 503.6620, L500.2500, L100.0100 ####[facility] [address] [place], [address] Creatinine [Mass/Vol] 2.21 mg/dL High 0.70-1.30 [facility] Comment on above: Result Comment: The validity of the calculated GFR GFRAA in patients over70 years has not been determined. Clinical correlation isessential. Performed By: #### L 503.6620, L500.2500, L100.0100 ####[facility] [address] [place], [address] EST GFR - AA 37 mL/min Low >60 [facility] Comment on above: Result Comment: Afri can Thai GFR Calc Performed By: #### L 503.6620, L500.2500, L100.0100 ####[facility] [address] [place], [address] GAP 5 Normal 5-15 [facility] Comment on above: Performed By: #### L 503.6620, L500.2500, L100.0100 ####[facility] [address] [place], [address] GFR/1.73 sq M.predicted among non-blacks MDRD (S/P/Bld) [Vol rate/Area] 31 mL/min/{1.73_m2} Low >60 [facility] Comment on above: Result Comment: Non- GFR Calc Performed By: #### L 503.6620, L500.2500, L100.0100 ####[facility] [address] [place], [address] Glucose [Mass/Vol] 127 mg/dL High 74-106 [facility] Comment on above: Result Comment: Fast ing Glucose result greater than or equal to 126 mg/dLsuggests DIABETES MELLITUS per A.D.A. criteria. Performed By: #### L 503.6620, L500.2500, L100.0100 ####[facility] [address] [place], [address] Potassium [Moles/Vol] 4.3 mmol/L Normal 3.5-5.1 [facility] Comment on above: Performed By: #### L 503.6620, L500.2500, L100.0100 ####[facility] [address] [place], [address] Sodium [Moles/Vol] 138 mmol/L Normal 136-145 [facility] Comment on above: Performed By: #### L 503.6620, L500.2500, L100.0100 ####[facility] [address] [place], [address] Urea nitrogen [Mass/Vol] 34 mg/dL High 7-18 [facility] Comment on above: Performed By: #### L 503.6620, L500.2500, L100.0100 ####[facility] [address] [place], [address] Basophil percentageOrdered B y: Leslie Arriaga on 09-25-2024 Basophils/100 WBC (Bld) 0.6 % 0-1 [facility] Blood urea nitrogen (BUN)/cr eatinine ratioOrdered By: Leslie Arriaga on 09-25-2024 Urea nitrogen/Creatinine [Mass ratio] 15.4 mg/mg 10-20 [facility] CBC W/Diff, Automatedon 02-0 -2024 Absolute Lymph 0.91 X10 3/uL Normal 0.83-4.51 [facility] Comment on above: Performed By: #### L 503.6620, L500.2500, L100.0100 ####[facility] [address] [place], [address] Absolute Neut 6.7 X10 3/uL Normal 2.0-7.7 [facility] Comment on above: Performed By: #### L 503.6620, L500.2500, L100.0100 ####[facility] [address] [place], [address] Basophils/100 WBC (Bld) 0.6 % Normal 0-1 [facility] Comment on above: Performed By: #### L 503.6620, L500.2500, L100.0100 ####[facility] [address] [place], [address] Eosinophils/100 WBC (Bld) 1.1 % Normal 0-5 [facility] Comment on above: Performed By: #### L 503.6620, L500.2500, L100.0100 ####[facility] [address] [place], [address] Erythrocyte distribution width (RBC) [Ratio] 16.2 % High 11.6-14.6 [facility] Comment on above: Performed By: #### L 503.6620, L500.2500, L100.0100 ####[facility] [address] [place], [address] Hematocrit (Bld) [Volume fraction] 36.0 % Low 40-54 [facility] Comment on above: Performed By: #### L 503.6620, L500.2500, L100.0100 ####[facility] [address] [place], [address] Hemoglobin (Bld) [Mass/Vol] 11.1 g/dL Low 13.0-16.5 [facility] Comment on above: Performed By: #### L 503.6620, L500.2500, L100.0100 ####[facility] [address] [place], [address] IG% 0.700 Normal 0.0-0.9 [facility] Comment on above: Result Comment: IG% - Immature Granulocytes (promyelocytes, myelocytes andmetamyelocytes) > 1% indicates that a LEFT SHIFT is Present. Performed By: #### L 503.6620, L500.2500, L100.0100 ####[facility] [address] [place], [address] Lymphocytes/100 WBC (Bld) 10.4 % Low 19-41 [facility] Comment on above: Performed By: #### L 503.6620, L500.2500, L100.0100 ####[facility] [address] [place], [address] MCH (RBC) [Entitic mass] 27.7 pg Normal 27.0-32.0 [facility] Comment on above: Performed By: #### L 503.6620, L500.2500, L100.0100 ####[facility] [address] [place], [address] MCHC (RBC) [Mass/Vol] 30.8 g/dL Low 32-36 [facility] Comment on above: Performed By: #### L 503.6620, L500.2500, L100.0100 ####[facility] [address] [place], [address] MCV (RBC) [Entitic vol] 89.8 fL Normal 80-94 [facility] Comment on above: Performed By: #### L 503.6620, L500.2500, L100.0100 ####[facility] [address] [place], [address] Monocytes/100 WBC (Bld) 10.3 % High 0-10 [facility] Comment on above: Performed By: #### L 503.6620, L500.2500, L100.0100 ####[facility] [address] [place], [address] Neutrophils/100 WBC (Bld) 76.9 % High 47-70 [facility] Comment on above: Performed By: #### L 503.6620, L500.2500, L100.0100 ####[facility] [address] [place], [address] Nucleated RBC (Bld) [#/Vol] 0 10*3/uL Normal 0-5 [facility] Comment on above: Performed By: #### L 503.6620, L500.2500, L100.0100 ####[facility] [address] [place], [address] Platelet mean volume (Bld) [Entitic vol] 10.5 fL Normal 6.2-12.0 [facility] Comment on above: Performed By: #### L 503.6620, L500.2500, L100.0100 ####[facility] [address] [place], [address] Platelets (Bld) [#/Vol] 256 10*3/uL Normal 150-450 [facility] Comment on above: Performed By: #### L 503.6620, L500.2500, L100.0100 ####[facility] [address] [place], [address] RBC (Bld) [#/Vol] 4.01 10*6/uL Low 4.6-6.2 [facility] Comment on above: Performed By: #### L 503.6620, L500.2500, L100.0100 ####[facility] [address] [place], [address] RDW SD 52.7 fl High 35.1-43.9 [facility] Comment on above: Performed By: #### L 503.6620, L500.2500, L100.0100 ####[facility] [address] [place], [address] WBC (Bld) [#/Vol] 8.7 10*3/uL Normal 4.4-11.0 [facility] Comment on above: Performed By: #### L 503.6620, L500.2500, L100.0100 ####[facility] [address] [place], [address] Carbon dioxide measurementOr dered By: Leslie Arriaga on 09-25-2024 CO2 [Moles/Vol] 28.0 mmol/L 21.0-32.0 [facility] Cardiology Visit Reporton Cardiology Visit Report Normal [facility] Chest PA and Lateralon 09-25 Chest PA and Lateral Normal [facility] Chloride measurementOrdered By: Leslie Arriaga on 09-25-2024 Chloride [Moles/Vol] 105 mmol/L 98-107 [facility] Eosinophil percentageOrdered By: Leslie Arriaga on 09-25-2024 Eosinophils/100 WBC (Bld) 1.1 % 0-5 [facility] Erythrocyte distribution wid th ratioOrdered By: Leslie Arriaga on 09-25-2024 Erythrocyte distribution width (RBC) [Ratio] 16.2 % High 11.6-14.6 [facility] Erythrocyte distribution wid th standard deviationOrdered By: Leslie Arriaga on 09-25-2024 Erythrocyte distribution width (RBC) [Entitic vol] 52.7 fL High 35.1-43.9 [facility] Estimated glomerular filtrat ion rate (GFR) AmericanOrdered By: Leslie Arriaga on 09-25-2024 Estimated GFR (MDRD) Amer 37 mL/min Low >60 [facility] Comment on above: GFR Calc Glomerular filtration rate ( GFR) estimationOrdered By: Leslie Arriaga on 09-25-2024 Estimated GFR (MDRD) Non-Af Amer 31 mL/min Low >60 [facility] Comment on above: Non- GFR Calc Glucose measurementOrdered B y: Leslie Arriaga on 09-25-2024 Glucose [Mass/Vol] 127 mg/dL High 74-106 [facility] Comment on above: Fasting Glucose resu lt greater than or equal to 126 mg/dL suggests DIABETES MELLITUS per A.D.A. criteria. Hematocrit Auto (Bld) [Volum e fraction]Ordered By: Leslie Arriaga on 09-25-2024 Hematocrit (Bld) [Volume fraction] 36.0 % Low 40-54 [facility] Hemoglobin measurementOrdere d By: Leslie Arriaga on 09-25-2024 Hemoglobin (Bld) [Mass/Vol] 11.1 g/dL Low 13.0-16.5 [facility] Immature granulocytes/100 WB C Auto (Bld)Ordered By: Leslie Arriaga on 09-25-2024 Immature granulocytes/100 WBC (Bld) 0.700 % 0.0-0.9 [facility] Comment on above: IG% - Immature Granu locytes (promyelocytes, myelocytes and metamyelocytes) > 1% indicates that a LEFT SHIFT is Present. Lymphocytes Auto (Unsp spec) [#/Vol]Ordered By: Leslie Arriaga on 09-25-2024 Lymphocytes (Bld) [#/Vol] 0.91 10*3/uL 0.83-4.51 [facility] Lymphocytes/100 WBC Auto (Un sp spec)Ordered By: Leslie Arriaga on 09-25-2024 Lymphocytes/100 WBC (Bld) 10.4 % Low 19-41 [facility] MCV (mean corpuscular volume ) determinationOrdered By: Leslie Arriaga on 09-25-2024 MCV (RBC) [Entitic vol] 89.8 fL 80-94 [facility] Mean corpuscular hemoglobin (MCH) determinationOrdered By: Leslie Arriaga on 09-25-2024 MCH (RBC) [Entitic mass] 27.7 pg 27.0-32.0 [facility] Mean corpuscular hemoglobin concentration (MCHC) determinationOrdered By: Leslie Arriaga on 09-25-2024 MCHC (RBC) [Mass/Vol] 30.8 g/dL Low 32-36 [facility] Mean platelet volume determi nationOrdered By: Leslie Arriaga on 09-25-2024 Platelet mean volume (Bld) [Entitic vol] 10.5 fL 6.2-12.0 [facility] Monocyte percentageOrdered B y: Leslie Arriaga on 09-25-2024 Monocytes/100 WBC (Bld) 10.3 % High 0-10 [facility] Neutrophil percentageOrdered By: Leslie Arriaga on 09-25-2024 Neutrophils/100 WBC (Bld) 76.9 % High 47-70 [facility] Nucleated red blood cell per centageOrdered By: Leslie Arriaga on 09-25-2024 Nucleated RBC/100 WBC (Bld) [Ratio] 0 % 0-5 [facility] Platelet countOrdered By: Linsey Arriaga on 09-25-2024 Platelets (Bld) [#/Vol] 256 10*3/uL 150-450 [facility] Potassium measurementOrdered By: Leslie Arriaga on 09-25-2024 Potassium [Moles/Vol] 4.3 mmol/L 3.5-5.1 [facility] RBC Auto (Bld) [#/Vol]Ordere d By: Leslie Arriaga on 09-25-2024 RBC (Bld) [#/Vol] 4.01 10*6/uL Low 4.6-6.2 [facility] Serum anion gap measurementO rdered By: Leslie Arriaga on 09-25-2024 Anion gap [Moles/Vol] 5 mmol/L 5-15 [facility] Serum or plasma calcium kingsley urement (mass/volume)Ordered By: Leslie Arriaga on 09-25-2024 Calcium [Mass/Vol] 9.1 mg/dL 8.5-10.1 [facility] Serum or plasma creatinine m easurement (mass/volume)Ordered By: Leslie Arriaga on 09-25-2024 Creatinine [Mass/Vol] 2.21 mg/dL High 0.70-1.30 [facility] Comment on above: The validity of the calculated GFR & GFRAA in patients over 70 years has not been determined. Clinical correlation is essential. Serum or plasma urea nitroge n measurement (mass/volume)Ordered By: Leslie Arriaga on 09-25-2024 Urea nitrogen [Mass/Vol] 34 mg/dL High 7-18 [facility] Sodium levelOrdered By: Brian Arriaga on 09-25-2024 Sodium [Moles/Vol] 138 mmol/L 136-145 [facility] White blood cell (WBC) count Ordered By: Leslie Arriaga on 09-25-2024 WBC (Bld) [#/Vol] 8.7 10*3/uL 4.4-11.0 [facility] Culture, Fungus 8482on 08-04 CUF Normal [facility] Comment on above: Performed By: #### M 100.1999, M600.1999, M100.4001, M100.3000 ####[facility] [address] [place], [address] Culture, Anaerobic Any [facility] talat 07-09-2024 CUAN Prevotella and Porphyromonas species are generally SUSCEPTIBLE to Cefoxitin, Chloramphenicol, and Metronidazole and are usually RESISTANT to Penicillin. Prevotella oralis Beta Lactamase-Reportable Positive [facility] Comment on above: Performed By: #### M 100.1999, M600.1999, M100.4001, M100.3000 ####[facility] [address] [place], [address] Wound Cultureon 07-05-2024 WC Normal [facility] Comment on above: Performed By: #### M 100.1999, M600.2000, M100.4001, M100.3000 ####[facility] [address] [place], [address] Gram Stainon 07-04-2024 GS Positive [facility] Comment on above: Performed By: #### M 100.1999, M600.1999, M100.4001, M100.3000 ####[facility] [address] [place], [address] Bacteria identified Anaer cx Nom (Unsp spec)Ordered By: Joaquim Suárez on 07-03-2024 Anaerobic Culture Prevotella oralis Abnormal [facility] Fungus identified Cx Nom (Un sp spec)Ordered By: Joaquim Suárez on 07-03-2024 Fungal Culture Ann-Marie parapsilosis Abnormal [facility] Gram stainOrdered By: Bladimir Suárez on 07-03-2024 Microscopic observation Gram stain Nom (Unsp spec) [facility] Routine wound cultureOrdered By: Joaquim Suárez on 07-03-2024 Wound Culture Staphylococcus pseudintermediu Abnormal [facility] Lower Ext Art Exam w/o Exerc soco 06-17-2024 Lower Ext Art Exam w/o Exercis Normal [facility] Venous Duplex US - Hi Extre mon 06-17-2024 Venous Duplex US - Hi Extrem Normal [facility] CBC W/Diff, Automatedon - Absolute Lymph 0.94 X10 3/uL Normal 0.83-4.51 [facility] Comment on above: Performed By: #### L 504.2610, L100.0100, L500.4050 ####[facility] [address] [place], [address] Absolute Neut 5.7 X10 3/uL Normal 2.0-7.7 [facility] Comment on above: Performed By: #### L 504.2610, L100.0100, L500.4050 ####[facility] [address] [place], [address] Basophils/100 WBC (Bld) 0.6 % Normal 0-1 [facility] Comment on above: Performed By: #### L 504.2610, L100.0100, L500.4050 ####[facility] [address] [place], [address] Eosinophils/100 WBC (Bld) 2.5 % Normal 0-5 [facility] Comment on above: Performed By: #### L 504.2610, L100.0100, L500.4050 ####[facility] [address] [place], [address] Erythrocyte distribution width (RBC) [Ratio] 16.3 % High 11.6-14.6 [facility] Comment on above: Performed By: #### L 504.2610, L100.0100, L500.4050 ####[facility] [address] [place], [address] Hematocrit (Bld) [Volume fraction] 36.9 % Low 40-54 [facility] Comment on above: Performed By: #### L 504.2610, L100.0100, L500.4050 ####[facility] [address] [place], [address] Hemoglobin (Bld) [Mass/Vol] 11.3 g/dL Low 13.0-16.5 [facility] Comment on above: Performed By: #### L 504.2610, L100.0100, L500.4050 ####[facility] [address] [place], [address] IG% 1.400 High 0.0-0.9 [facility] Comment on above: Result Comment: IG% - Immature Granulocytes (promyelocytes, myelocytes andmetamyelocytes) > 1% indicates that a LEFT SHIFT is Present. Performed By: #### L 504.2610, L100.0100, L500.4050 ####[facility] [address] [place], [address] Lymphocytes/100 WBC (Bld) 11.8 % Low 19-41 [facility] Comment on above: Performed By: #### L 504.2610, L100.0100, L500.4050 ####[facility] [address] [place], [address] MCH (RBC) [Entitic mass] 27.2 pg Normal 27.0-32.0 [facility] Comment on above: Performed By: #### L 504.2610, L100.0100, L500.4050 ####[facility] [address] [place], [address] MCHC (RBC) [Mass/Vol] 30.6 g/dL Low 32-36 [facility] Comment on above: Performed By: #### L 504.2610, L100.0100, L500.4050 ####[facility] [address] [place], [address] MCV (RBC) [Entitic vol] 88.7 fL Normal 80-94 [facility] Comment on above: Performed By: #### L 504.2610, L100.0100, L500.4050 ####[facility] [address] [place], [address] Monocytes/100 WBC (Bld) 11.6 % High 0-10 [facility] Comment on above: Performed By: #### L 504.2610, L100.0100, L500.4050 ####[facility] [address] [place], [address] Neutrophils/100 WBC (Bld) 72.1 % High 47-70 [facility] Comment on above: Performed By: #### L 504.2610, L100.0100, L500.4050 ####[facility] [address] [place], [address] Nucleated RBC (Bld) [#/Vol] 0 10*3/uL Normal 0-5 [facility] Comment on above: Performed By: #### L 504.2610, L100.0100, L500.4050 ####[facility] [address] [place], [address] Platelet mean volume (Bld) [Entitic vol] 9.9 fL Normal 6.2-12.0 [facility] Comment on above: Performed By: #### L 504.2610, L100.0100, L500.4050 ####[facility] [address] [place], [address] Platelets (Bld) [#/Vol] 222 10*3/uL Normal 150-450 [facility] Comment on above: Performed By: #### L 504.2610, L100.0100, L500.4050 ####[facility] [address] [place], [address] RBC (Bld) [#/Vol] 4.16 10*6/uL Low 4.6-6.2 [facility] Comment on above: Performed By: #### L 504.2610, L100.0100, L500.4050 ####[facility] [address] [place], [address] RDW SD 53.2 fl High 35.1-43.9 [facility] Comment on above: Performed By: #### L 504.2610, L100.0100, L500.4050 ####[facility] [address] [place], [address] WBC (Bld) [#/Vol] 8.0 10*3/uL Normal 4.4-11.0 [facility] Comment on above: Performed By: #### L 504.2610, L100.0100, L500.4050 ####[facility] [address] [place], [address] Comprehensive Metabolic Prof ilon 05-05-2024 Albumin [Mass/Vol] 3.1 g/dL Low 3.2-5.0 [facility] Comment on above: Order Comment: 1 Performed By: #### L 504.2610, L100.0100, L500.4050 ####[facility] [address] [place], [address] Albumin/Globulin [Mass ratio] 0.6 {ratio} Low 0.9-2.4 [facility] Comment on above: Order Comment: 1 Performed By: #### L 504.2610, L100.0100, L500.4050 ####[facility] [address] [place], [address] ALK P 60 U/L Normal 45-117 [facility] Comment on above: Order Comment: 1 Performed By: #### L 504.2610, L100.0100, L500.4050 ####[facility] [address] [place], [address] ALT [Catalytic activity/Vol] 15 U/L Low 16-61 [facility] Comment on above: Order Comment: 1 Performed By: #### L 504.2610, L100.0100, L500.4050 ####[facility] [address] [place], [address] AST [Catalytic activity/Vol] 11 U/L Low 15-37 [facility] Comment on above: Order Comment: 1 Performed By: #### L 504.2610, L100.0100, L500.4050 ####[facility] [address] [place], [address] Bilirubin [Mass/Vol] 0.40 mg/dL Normal 0.20-1.00 [facility] Comment on above: Order Comment: 1 Result Comment: For patients on eltrombopag therapy, use of Dimension [place] TBIL is not recommended. Performed By: #### L 504.2610, L100.0100, L500.4050 ####[facility] [address] [place], [address] BUN/CRE 20.3 RATIO High 10-20 [facility] Comment on above: Order Comment: 1 Performed By: #### L 504.2610, L100.0100, L500.4050 ####[facility] [address] [place], [address] CA,Total 9.3 mg/dL Normal 8.5-10.1 [facility] Comment on above: Order Comment: 1 Performed By: #### L 504.2610, L100.0100, L500.4050 ####[facility] [address] [place], [address] Chloride [Moles/Vol] 104 mmol/L Normal 98-107 [facility] Comment on above: Order Comment: 1 Performed By: #### L 504.2610, L100.0100, L500.4050 ####[facility] [address] [place], [address] CO2 [Moles/Vol] 27.0 mmol/L Normal 21.0-32.0 [facility] Comment on above: Order Comment: 1 Performed By: #### L 504.2610, L100.0100, L500.4050 ####[facility] [address] [place], [address] Creatinine [Mass/Vol] 2.17 mg/dL High 0.70-1.30 [facility] Comment on above: Order Comment: 1 Result Comment: The validity of the calculated GFR GFRAA in patients over70 years has not been determined. Clinical correlation isessential. Performed By: #### L 504.2610, L100.0100, L500.4050 ####[facility] [address] [place], [address] ECRCL 27.63 ml/min Normal [facility] Comment on above: Order Comment: 1 Performed By: #### L 504.2610, L100.0100, L500.4050 ####[facility] [address] [place], [address] EST GFR - AA 38 mL/min Low >60 [facility] Comment on above: Order Comment: 1 Result Comment: Afri can Thai GFR Calc Performed By: #### L 504.2610, L100.0100, L500.4050 ####[facility] [address] [place], [address] GAP 3 Low 5-15 [facility] Comment on above: Order Comment: 1 Performed By: #### L 504.2610, L100.0100, L500.4050 ####[facility] [address] [place], [address] GFR/1.73 sq M.predicted among non-blacks MDRD (S/P/Bld) [Vol rate/Area] 31 mL/min/{1.73_m2} Low >60 [facility] Comment on above: Order Comment: 1 Result Comment: Non- GFR Calc Performed By: #### L 504.2610, L100.0100, L500.4050 ####[facility] [address] [place], [address] Globulin (S) [Mass/Vol] 4.9 g/dL High 2.2-4.2 [facility] Comment on above: Order Comment: 1 Performed By: #### L 504.2610, L100.0100, L500.4050 ####[facility] [address] [place], [address] Glucose [Mass/Vol] 130 mg/dL High 74-106 [facility] Comment on above: Order Comment: 1 Result Comment: Fast ing Glucose result greater than or equal to 126 mg/dLsuggests DIABETES MELLITUS per A.D.A. criteria. Performed By: #### L 504.2610, L100.0100, L500.4050 ####[facility] [address] [place], [address] Potassium [Moles/Vol] 4.8 mmol/L Normal 3.5-5.1 [facility] Comment on above: Order Comment: 1 Performed By: #### L 504.2610, L100.0100, L500.4050 ####[facility] [address] [place], [address] Sodium [Moles/Vol] 134 mmol/L Low 136-145 [facility] Comment on above: Order Comment: 1 Performed By: #### L 504.2610, L100.0100, L500.4050 ####[facility] [address] [place], [address] T PROT 8.0 g/dL Normal 6.4-8.2 [facility] Comment on above: Order Comment: 1 Performed By: #### L 504.2610, L100.0100, L500.4050 ####[facility] [address] [place], [address] Urea nitrogen [Mass/Vol] 44 mg/dL High 7-18 [facility] Comment on above: Order Comment: 1 Performed By: #### L 504.2610, L100.0100, L500.4050 ####[facility] [address] [place], [address] Estimated glomerular filtrat ion rate (GFR) AmericanOrdered By: Russ Zamora on 05-05-2024 Estimated GFR (MDRD) Amer 38 mL/min Low >60 [facility] Comment on above: GFR Calc LDHon 05-05-2024 LDH 126 U/L Normal 87-241 [facility] Comment on above: Order Comment: 1 Performed By: #### L 504.2610, L100.0100, L500.4050 ####[facility] [address] [place], [address] Oncology Visit Reporton 04-20 Oncology Visit Report Normal [facility] CREATININE FINGERSTICKon Creatinine [Mass/Vol] 1.4 mg/dL High 0.70-1.30 [facility] Comment on above: Performed By: #### L 9100.0200 ####[facility] [address] [place], [place], [address] GFR/1.73 sq M.predicted among non-blacks MDRD (S/P/Bld) [Vol rate/Area] 50.0000 mL/min/{1.73_m2} Low >60 [facility] Comment on above: Performed By: #### L 9100.0200 ####[facility] [address] [place], [address] CT Chest AND Abd W/ Contrast on 04-28-2024 CT Chest AND Abd W/ Contrast Normal [facility] Miscellaneous procedureOrder ed By: Russ Zamora on 01-28-2024 Miscellaneous Test See comment [facility] Comment on above: Sent directly to [facility] per ordering physician. Bacteria identified Cx Nom ( Wound)Ordered By: Joaquim Suárez on 12-24-2023 Wound Culture Staphylococcus pseudintermediu [facility] Wound Culture Enterococcus faecalis [facility] Wound Culture Streptococcus pyogenes [facility] Gram stain for investigation of transfusion reactionOrdered By: Joaquim Suárez on 12-24-2023 Microscopic observation Gram stain Nom (Unsp spec) [facility] Absolute lymphocyte countOrd ered By: Russ Zamora on 11-06-2023 Lymphocytes Auto (Unsp spec) [#/Vol] 0.95 10*3/uL 0.83-4.51 [facility] Addendum DocumentOrdered By: Russ Zamora on 11-06-2023 Serum Immunofixation Comments Comment . [facility] Comment on above: Protein electrophore sis scan will follow via computer,mail, or ethanol operator delivery. Albumin Elph [Mass/Vol]Order ed By: Russ Zamora on 11-06-2023 Albumin [Mass/Vol] 3.2 g/dL 2.9-4.4 [facility] Alpha 1 globulin Elph [Mass/ Vol]Ordered By: Russ Zamora on 11-06-2023 Gzcls-2-Kdzkandhy (PILY) 0.4 g/dL 0.0-0.4 [facility] Qkwkj-9-Zywezcknx (PILY) 1.3 g/dL High 0.4-1.0 [facility] Automated lymphocyte count a s percentage of total leukocytesOrdered By: Russ Zamora on 11-06-2023 Lymphocytes/100 WBC Auto (Unsp spec) 10.5 % 19-41 [facility] Basophil percentageOrdered B y: Russ Zamora on 11-06-2023 Basophils/100 WBC (Bld) 0.6 % 0-1 [facility] Bilirubin [Mass/Vol] 0.30 mg/dL 0.20-1.00 [facility] Comment on above: For patients on eltr ombopag therapy, use of Dimension [place] TBIL is not recommended. Chloride [Moles/Vol] 105 mmol/L 98-107 [facility] Eosinophils/100 WBC (Bld) 2.1 % 0-5 [facility] Glucose [Mass/Vol] 106 mg/dL 74-106 [facility] Comment on above: Fasting Glucose resu lt from 100 to 125 mg/dL suggests IMPAIRED HOMEOSTASIS per A.D.A. criteria. Hemoglobin (Bld) [Mass/Vol] 11.5 g/dL 13.0-16.5 [facility] LDH [Catalytic activity/Vol] 170 U/L 87-241 [facility] Monocytes/100 WBC (Bld) 10.7 % 0-10 [facility] Neutrophils (Bld) [#/Vol] 6.8 10*3/uL 2.0-7.7 [facility] Neutrophils/100 WBC (Bld) 75.2 % 47-70 [facility] Potassium [Moles/Vol] 4.3 mmol/L 3.5-5.1 [facility] Protein [Mass/Vol] 8.2 g/dL 6.4-8.2 [facility] Sodium [Moles/Vol] 135 mmol/L 136-145 [facility] WBC (Bld) [#/Vol] 9.0 10*3/uL 4.4-11.0 [facility] Beta globulin Elph [Mass/Vol ]Ordered By: Russ Zamora on 11-06-2023 Beta-Globulins (PILY) 1.0 g/dL 0.7-1.3 [facility] C-reactive protein measureme nt by high sensitivity methodOrdered By: Russ Zamora on 11-06-2023 C-Reactive Protein Extended Range 22.10 mg/L High 0.0-3.0 [facility] Comment on above: C-Reactive Protein ( CRP) provides useful information for thediagnosis, therapy and monitoring of inflammatory processesand associated diseases. For the evaluation of Relative Riskfor Cardiovascular Disease, a High Sensitivity CRP (HSCRP)should be ordered. C-reactive protein measurement by high sensitivity method 22.10 mg/L High 0.0-3.0 [facility] Comment on above: C-Reactive Protein ( CRP) provides useful information for thediagnosis, therapy and monitoring of inflammatory processesand associated diseases. For the evaluation of Relative Riskfor Cardiovascular Disease, a High Sensitivity CRP (HSCRP)should be ordered. Determination of erythrocyte mean corpuscular volume (MCV)Ordered By: Russ Zamora on 11-06-2023 MCV (RBC) [Entitic vol] 88.0 fL 80-94 [facility] Erythrocyte distribution wid th ratioOrdered By: Russ Zamora on 11-06-2023 Erythrocyte distribution width (RBC) [Ratio] 15.5 % 11.6-14.6 [facility] Erythrocyte distribution wid th standard deviationOrdered By: Russ Zamora on 11-06-2023 Erythrocyte distribution width (RBC) [Entitic vol] 49.5 fL 35.1-43.9 [facility] Erythrocyte sedimentation ra teOrdered By: Russ Zamora on 11-06-2023 ESR (Bld) [Velocity] 21 mm/h High 0-20 [facility] Gamma globulin Elph [Mass/Vo l]Ordered By: Russ Zamora 11-06-2023 Gamma Globulins (PILY) 1.8 g/dL 0.4-1.8 [facility] Hematocrit Auto (Bld) [Volum e fraction]Ordered By: Russ Zamora on 11-06-2023 Hematocrit (Bld) [Volume fraction] 36.8 % 40-54 [facility] Hemoglobin (Reticulocytes) [ Entitic mass]Ordered By: Russ Zamora 11-06-2023 Reticulocyte Hemoglobin Equivalent 31.4 pg 30-35 [facility] Hemoglobin in reticulocytes (mass per reticulocyte)Ordered By: Russ Zamora on 11-06-2023 Hemoglobin (Reticulocytes) [Entitic mass] 31.4 pg 30-35 [facility] IgA [Mass/Vol]Ordered By: Flores Zamora on 11-06-2023 Immunoglobulin A 311 mg/dL 61-437 [facility] IgG [Mass/Vol]Ordered By: Flores Zamora on 11-06-2023 Immunoglobulin G 1529 mg/dL 603-1613 [facility] Immature granulocytes/100 WB C Auto (Bld)Ordered By: Russ Zamora on 11-06-2023 Immature granulocytes/100 WBC (Bld) 0.900 % 0.0-0.9 [facility] Comment on above: IG% - Immature Granu locytes (promyelocytes, myelocytes and metamyelocytes) > 1% indicates that a LEFT SHIFT is Present. Immature reticulocyte fracti onOrdered By: Russ Zamora on 11-06-2023 Immature Reticulocyte Fraction 22.10 % High 3.00-15.90 [facility] Immunoglobulin M measurement Ordered By: Russ Zamora on 11-06-2023 Immunoglobulin M 157 mg/dL High 15-143 [facility] Immunoglobulin light chains. kappa [Mass/Vol]Ordered By: Russ Zamora on 11-06-[address] [place] Light Chains, Quant 100.3 mg/L High 3.3-19.4 [facility] Immunoglobulin light chains. kappa/Immunoglobulin light chains.lambda (S) [Mass ratio]Ordered By: Russ Zamora on 11-06-[address] [place]/Lambda Light Chain Ratio 1.63 0.26-1.65 [facility] Comment on above: Performed at: [place] [id number] Director: Seb Bertrand PhD, Phone: [phone] Interpretation IEP [Interp]O rdered By: Russ Zamora on 11-06-2023 Immunofixation Screen Comment . [facility] Comment on above: No monoclonality det ected. Interpretation of serum or p lasma protein pattern by immunofixation (narrative resultOrdered By: Russ Zamora on 11-06-2023 Protein Fractions Immunofixation Jose Luis [Interp] Not Observed g/dL Not Observed [facility] Laboratory - Chemistry and C hemistry - challengeOrdered By: Russ Zamora on 11-06-2023 Albumin/Globulin [Mass ratio] 0.6 {ratio} 0.9-2.4 [facility] ALP [Catalytic activity/Vol] 62 U/L 45-117 [facility] ALT [Catalytic activity/Vol] 17 U/L 16-61 [facility] CO2 [Moles/Vol] 24.0 mmol/L 21.0-32.0 [facility] Urea nitrogen/Creatinine [Mass ratio] 21.9 mg/mg 10-20 [facility] Laboratory - Hematology and Cell countsOrdered By: Russ Zamora on 11-06-2023 MCH (RBC) [Entitic mass] 27.5 pg 27.0-32.0 [facility] MCHC (RBC) [Mass/Vol] 31.3 g/dL 32-36 [facility] Nucleated RBC/100 WBC (Bld) [Ratio] 0 % 0-5 [facility] Platelet mean volume (Bld) [Entitic vol] 9.1 fL 6.2-12.0 [facility] Platelets (Bld) [#/Vol] 270 10*3/uL 150-450 [facility] Lambda free light chain kingsley urementOrdered By: Russ Zamora on 11-06-2023 Free Lambda Light Chains, Quant 61.5 mg/L High 5.7-26.3 [facility] No Panel InformationOrdered By: Russ Zamora on 11-06-2023 Addendum Document Comment . [facility] Comment on above: Protein electrophore sis scan will follow via computer,mail, or ethanol operator delivery. Estimated Creatinine Clearance Calc 31.12 ml/min [facility] Estimated GFR (MDRD) Amer 43 mL/min >60 [facility] Comment on above: GFR Calc Estimated GFR (MDRD) Non-Af Amer 35 mL/min >60 [facility] Comment on above: Non- GFR Calc Protein Fractions Immunofixa tion Jose Luis [Interp]Ordered By: Russ Zamora on 11-06-2023 M-Arash (PILY) Not Observed g/dL Not Observed [facility] RBC Auto (Bld) [#/Vol]Ordere d By: Russ Zamora on 11-06-2023 RBC (Bld) [#/Vol] 4.18 10*6/uL 4.6-6.2 [facility] Reticulocytes Auto (Bld) [#/ Vol]Ordered By: Russ Zamora on 11-06-2023 Reticulocyte Count 2.12 % High 0.5-1.5 [facility] Reticulocytes/100 RBC (Bld) 2.12 % High 0.5-1.5 [facility] Serum albumin/globulin ratio Ordered By: Russ Zamora on 11-06-2023 Albumin/Globulin (PILY) 0.8 0.7-1.7 [facility] Serum qshkg-6-mdoxyzut measu rement by electrophoresisOrdered By: Russ Zamora on 11-06-2023 Alpha 1 globulin Elph [Mass/Vol] 0.4 g/dL 0.0-0.4 [facility] Alpha 1 globulin Elph [Mass/Vol] 1.3 g/dL High 0.4-1.0 [facility] Serum globulin measurement ( mass/volume)Ordered By: Russ Zamora on 11-06-2023 Globulin (S) [Mass/Vol] 4.4 g/dL 2.2-3.9 [facility] Serum immunoglobulin kappa l ight chains/immunoglobulin lambda light chains mass ratioOrdered By: Russ Zamora on 11-06-2023 Immunoglobulin light chains.kappa/Immunoglobu mellissa light chains.lambda (S) [Mass ratio] 1.63 0.26-1.65 [facility] Comment on above: Performed at: [address] [id number] Director: Seb Bertrand PhD, Phone: [phone] Serum or plasma IgA measurem ent (mass/volume)Ordered By: Russ Zamora on 11-06-2023 IgA [Mass/Vol] 311 mg/dL 61-437 [facility] Serum or plasma IgG measurem ent (mass/volume)Ordered By: Russ Zamora on 11-06-2023 IgG [Mass/Vol] 1529 mg/dL [id number] [facility] Serum or plasma beta globuli n measurement by electrophoresis (mass/volume)Ordered By: Russ Zamora on 11-06-2023 Beta globulin Elph [Mass/Vol] 1.0 g/dL 0.7-1.3 [facility] Serum or plasma calcium kingsley urement (mass/volume)Ordered By: Russ Zamora on 11-06-2023 Calcium [Mass/Vol] 9.0 mg/dL 8.5-10.1 [facility] Serum or plasma creatinine m easurement (mass/volume)Ordered By: Russ Zamora on 11-06-2023 Creatinine [Mass/Vol] 1.96 mg/dL 0.70-1.30 [facility] Comment on above: The validity of the calculated GFR & GFRAA in patients over 70 years has not been determined. Clinical correlation is essential. Serum or plasma gamma globul in measurement by electrophoresis (mass/volume)Ordered By: Russ Zamora on 11-06-2023 Gamma globulin Elph [Mass/Vol] 1.8 g/dL 0.4-1.8 [facility] Serum or plasma immunoelectr ophoresis interpretation (nominal result)Ordered By: Russ Zamora on 11-06-2023 Interpretation IEP [Interp] Comment . [facility] Comment on above: No monoclonality det ected. Serum or plasma immunoglobul in kappa light chains measurement (mass/volume)Ordered By: Russ Zamora on 11-06-2023 Immunoglobulin light chains.kappa [Mass/Vol] 100.3 mg/L High 3.3-19.4 [facility] Serum or plasma urea nitroge n measurement (mass/volume)Ordered By: Russ Zamora on 11-06-2023 Urea nitrogen [Mass/Vol] 43 mg/dL 7-18 [facility] Serum or plasma uric acid me asurement (mass/volume)Ordered By: Russ Zamora on 11-06-2023 Urate [Mass/Vol] 6.6 mg/dL 3.5-7.2 [facility] Comment on above: The drugs N-Acetylcy steine and Metamizole may falsely depress this assay. Thin prep Papanicolaou smear with manual screeningOrdered By: Russ Zamora on 11-06-2023 Thin prep Papanicolaou smear with manual screening 3.2 g/dL 3.2-5.0 [facility] Thin prep Papanicolaou smear with manual screening 15 U/L 15-37 [facility] Thin prep Papanicolaou smear with manual screening 6 5-15 [facility] Thin prep Papanicolaou smear with manual screening 0.8 0.7-1.7 [facility] Total protein bloodOrdered B y: Russ Zamora on 11-06-2023 Protein [Mass/Vol] 7.6 g/dL 6.0-8.5 [facility] Basophil percentageOrdered B y: Russ Zamora on 10-12-2023 Creatinine [Mass/Vol] 1.5 mg/dL 0.70-1.30 [facility] Laboratory - Chemistry and C hemistry - challengeOrdered By: Russ Zamora on 10-12-2023 GFR/1.73 sq M.predicted among non-blacks MDRD (S/P/Bld) [Vol rate/Area] 49.0000 mL/min/{1.73_m2} >60 [facility] Absolute lymphocyte countOrd ered By: Leslie Arriaga on 07-26-2023 Lymphocytes Auto (Unsp spec) [#/Vol] 1.22 10*3/uL 0.83-4.51 [facility] Assessment of wrist artery p atency prior to arterial punctureOrdered By: Lorie Mart on 07-26-2023 Arterial patency Wrist artery --pre arterial puncture Positive [facility] Base excessOrdered By: Obed Mart on 07-26-2023 Base excess Calc (BldV) [Moles/Vol] -1 mmol/L -2-2 [facility] Basophil percentageOrdered B y: Leslie Arriaga on 07-26-2023 Basophils/100 WBC (Bld) 0.7 % 0-1 [facility] Chloride [Moles/Vol] 105 mmol/L 98-107 [facility] Eosinophils/100 WBC (Bld) 1.7 % 0-5 [facility] Glucose [Mass/Vol] 99 mg/dL 74-106 [facility] Neutrophils (Bld) [#/Vol] 9.0 10*3/uL 2.0-7.7 [facility] Neutrophils/100 WBC (Bld) 76.3 % 47-70 [facility] Potassium [Moles/Vol] 4.8 mmol/L 3.5-5.1 [facility] Sodium [Moles/Vol] 135 mmol/L 136-145 [facility] WBC (Bld) [#/Vol] 11.7 10*3/uL 4.4-11.0 [facility] Basophil percentageOrdered B y: Lorie Mart on 07-26-2023 Basophil percentage 24.8 mmol/L 22-26 [facility] Basophils/100 WBC (Bld) 95 % 95-99 [facility] Blood erythrocytes count (nu mber/volume)Ordered By: Leslie Arriaga on 07-26-2023 RBC (Bld) [#/Vol] 4.50 10*6/uL 4.6-6.2 [facility] Blood hemoglobin measurement (mass/volume)Ordered By: Leslie Arriaga on 07-26-2023 Hemoglobin (Bld) [Mass/Vol] 12.5 g/dL 13.0-16.5 [facility] Blood lymphocytes/100 leukoc ytesOrdered By: Leslie Arriaga on 07-26-2023 Lymphocytes/100 WBC (Bld) 10.4 % 19-41 [facility] Blood monocytes/100 leukocyt esOrdered By: Leslie Arriaga on 07-26-2023 Monocytes/100 WBC (Bld) 10.2 % 0-10 [facility] Blood platelet mean volumeOr dered By: Leslie Arriaga on 07-26-2023 Platelet mean volume (Bld) [Entitic vol] 10.6 fL 6.2-12.0 [facility] CO2 (BldA) [Partial pressure ]Ordered By: Lorie Mart on 07-26-2023 CO2 (Bld) [Partial pressure] 42.6 mm[Hg] 35-45 [facility] Determination of erythrocyte mean corpuscular volume (MCV)Ordered By: Leslie Arriaga on 07-26-2023 MCV (RBC) [Entitic vol] 87.6 fL 80-94 [facility] Hematocrit Auto (Bld) [Volum e fraction]Ordered By: Leslie Arriaga on 07-26-2023 Hematocrit (Bld) [Volume fraction] 39.4 % 40-54 [facility] Laboratory - Chemistry and C hemistry - challengeOrdered By: Leslie Arriaga on 07-26-2023 CO2 [Moles/Vol] 28.0 mmol/L 21.0-32.0 [facility] Natriuretic peptide B (Bld) [Mass/Vol] 233.5 pg/mL 0-100 [facility] Urea nitrogen/Creatinine [Mass ratio] 25.4 mg/mg 10-20 [facility] Laboratory - Hematology and Cell countsOrdered By: Leslie Arriaga on 07-26-2023 Erythrocyte distribution width (RBC) [Entitic vol] 52.0 fL 35.1-43.9 [facility] Erythrocyte distribution width (RBC) [Ratio] 16.3 % 11.6-14.6 [facility] Immature granulocytes/100 WBC (Bld) 0.700 % 0.0-0.9 [facility] Comment on above: IG% - Immature Granu locytes (promyelocytes, myelocytes and metamyelocytes) > 1% indicates that a LEFT SHIFT is Present. MCH (RBC) [Entitic mass] 27.8 pg 27.0-32.0 [facility] Nucleated RBC/100 WBC (Bld) [Ratio] 0 % 0-5 [facility] MCHC Auto (RBC) [Mass/Vol]Or dered By: Leslie Arriaga on 07-26-2023 MCHC (RBC) [Mass/Vol] 31.7 g/dL 32-36 [facility] No Panel InformationOrdered By: Leslie Arriaga on 07-26-2023 Estimated GFR (MDRD) Amer 40 mL/min >60 [facility] Comment on above: GFR Calc Estimated GFR (MDRD) Non-Af Amer 33 mL/min >60 [facility] Comment on above: Non- GFR Calc No Panel InformationOrdered By: Lorie Mart on 07-26-2023 Blood Gas Sample Site R Radial [facility] Blood Gas Specimen Type ART [facility] Blood Gas Total CO2 26 mmol/L [facility] Blood Gas Vent Mode Not entered [facility] Oxygen Delivery Device [id number] [facility] Oxygen (BldA) [Partial press ure]Ordered By: Lorie Mart on 07-26-2023 Oxygen (Bld) [Partial pressure] 77 mmHG 75-100 [facility] Platelets bldOrdered By: Markus Arriaga on 07-26-2023 Platelets (Bld) [#/Vol] 264 10*3/uL 150-450 [facility] Serum or plasma calcium [place] urement (mass/volume)Ordered By: Leslie Arriaga on 07-26-2023 Calcium [Mass/Vol] 9.3 mg/dL 8.5-10.1 [facility] Serum or plasma creatinine m easurement (mass/volume)Ordered By: Leslie Arriaga on 07-26-2023 Creatinine [Mass/Vol] 2.09 mg/dL 0.70-1.30 [facility] Comment on above: The validity of the calculated GFR & GFRAA in patients over 70 years has not been determined. Clinical correlation is essential. Serum or plasma urea nitroge n measurement (mass/volume)Ordered By: Leslie Arriaga on 07-26-2023 Urea nitrogen [Mass/Vol] 53 mg/dL 7-18 [facility] Thin prep Papanicolaou smear with manual screeningOrdered By: Leslie Arriaga on 07-26-2023 Thin prep Papanicolaou smear with manual screening 2 5-15 [facility] pH measurementOrdered By: Pj Mart on 07-26-2023 pH (Unsp spec) 7.37 [pH] 7.35-7.45 [facility] Anaerobic cultureOrdered By: Joaquim Suárez on 06-22-2023 Bacteria identified Anaer cx Nom (Unsp spec) No anaerobic bacteria isolated. [facility] Bacteria identified Cx Nom ( Wound)Ordered By: Joaquim Suárez on 06-22-2023 Wound Culture Staphylococcus epidermidis [facility] Wound Culture Corynebacterium jeikeium [facility] Fungus cultureOrdered By: Flores Suárez on 06-22-2023 Fungus identified Cx Nom (Unsp spec) [facility] Gram stain for investigation of transfusion reactionOrdered By: Joaquim Suárez on 06-22-2023 Microscopic observation Gram stain Nom (Unsp spec) [facility] Glucose Glucometer (BldC) [M ass/Vol]Ordered By: Joaquim Suárez on 06-08-2023 Glucose [Mass/Vol] 72 mg/dL 74-106 [facility] Comment on above: MANAGEMENT OF PATIEN T CARE PER NURSING PROTOCOL Absolute lymphocyte countOrd ered By: Russ Zamora on 04-17-2023 Lymphocytes Auto (Unsp spec) [#/Vol] 1.02 10*3/uL 0.83-4.51 [facility] Basophil percentageOrdered B y: Russ Zamora on 04-17-2023 Basophils/100 WBC (Bld) 0.5 % 0-1 [facility] Bilirubin [Mass/Vol] 0.30 mg/dL 0.20-1.00 [facility] Comment on above: For patients on eltr ombopag therapy, use of Dimension [place] TBIL is not recommended. Chloride [Moles/Vol] 102 mmol/L 98-107 [facility] Eosinophils/100 WBC (Bld) 2.6 % 0-5 [facility] Glucose [Mass/Vol] 209 mg/dL 74-106 [facility] Comment on above: Glucose result great er than or equal to 200 mg/dLsuggests DIABETES MELLITUS per A.D.A. criteria. LDH [Catalytic activity/Vol] 152 U/L 87-241 [facility] Neutrophils (Bld) [#/Vol] 6.0 10*3/uL 2.0-7.7 [facility] Neutrophils/100 WBC (Bld) 74.2 % 47-70 [facility] Potassium [Moles/Vol] 4.3 mmol/L 3.5-5.1 [facility] Protein [Mass/Vol] 7.8 g/dL 6.4-8.2 [facility] Sodium [Moles/Vol] 136 mmol/L 136-145 [facility] WBC (Bld) [#/Vol] 8.1 10*3/uL 4.4-11.0 [facility] Blood erythrocytes count (nu mber/volume)Ordered By: Russ Zamora on 04-17-2023 RBC (Bld) [#/Vol] 4.45 10*6/uL 4.6-6.2 [facility] Blood hemoglobin measurement (mass/volume)Ordered By: Russ Zamora on 04-17-2023 Hemoglobin (Bld) [Mass/Vol] 12.3 g/dL 13.0-16.5 [facility] Blood lymphocytes/100 leukoc ytesOrdered By: Russ Zamora on 04-17-2023 Lymphocytes/100 WBC (Bld) 12.6 % 19-41 [facility] Blood monocytes/100 leukocyt esOrdered By: Russ Zamora on 04-17-2023 Monocytes/100 WBC (Bld) 9.4 % 0-10 [facility] Blood platelet mean volumeOr dered By: Russ Zamora on 04-17-2023 Platelet mean volume (Bld) [Entitic vol] 9.5 fL 6.2-12.0 [facility] Determination of erythrocyte mean corpuscular volume (MCV)Ordered By: Russ Zamora on 04-17-2023 MCV (RBC) [Entitic vol] 89.9 fL 80-94 [facility] Hematocrit Auto (Bld) [Volum e fraction]Ordered By: Russ Zamora on 04-17-2023 Hematocrit (Bld) [Volume fraction] 40.0 % 40-54 [facility] Laboratory - Chemistry and C hemistry - challengeOrdered By: Russ Zamora on 04-17-2023 ALP [Catalytic activity/Vol] 58 U/L 45-117 [facility] ALT [Catalytic activity/Vol] 21 U/L 16-61 [facility] CO2 [Moles/Vol] 27.0 mmol/L 21.0-32.0 [facility] Globulin (S) [Mass/Vol] 4.5 g/dL 2.2-4.2 [facility] Urea nitrogen/Creatinine [Mass ratio] 20.3 mg/mg 10-20 [facility] Laboratory - Hematology and Cell countsOrdered By: Russ Zamora on 04-17-2023 Erythrocyte distribution width (RBC) [Entitic vol] 54.4 fL 35.1-43.9 [facility] Erythrocyte distribution width (RBC) [Ratio] 16.5 % 11.6-14.6 [facility] Immature granulocytes/100 WBC (Bld) 0.700 % 0.0-0.9 [facility] Comment on above: IG% - Immature Granu locytes (promyelocytes, myelocytes and metamyelocytes) > 1% indicates that a LEFT SHIFT is Present. MCH (RBC) [Entitic mass] 27.6 pg 27.0-32.0 [facility] Nucleated RBC/100 WBC (Bld) [Ratio] 0 % 0-5 [facility] MCHC Auto (RBC) [Mass/Vol]Or dered By: Russ Zamora on 04-17-2023 MCHC (RBC) [Mass/Vol] 30.8 g/dL 32-36 [facility] No Panel InformationOrdered By: Russ Zamora on 04-17-2023 Estimated Creatinine Clearance Calc 29.38 ml/min [facility] Estimated GFR (MDRD) Amer 45 mL/min >60 [facility] Comment on above: GFR Calc Estimated GFR (MDRD) Non-Af Amer 37 mL/min >60 [facility] Comment on above: Non- GFR Calc Platelets bldOrdered By: Frantz Zamora on 04-17-2023 Platelets (Bld) [#/Vol] 214 10*3/uL 150-450 [facility] Serum or plasma albumin kings[place] urement (mass/volume)Ordered By: Russ Zamora on 04-17-2023 Albumin [Mass/Vol] 3.3 g/dL 3.2-5.0 [facility] Serum or plasma albumin/glob ulin mass ratioOrdered By: Russ Zamora on 04-17-2023 Albumin/Globulin [Mass ratio] 0.7 {ratio} 0.9-2.4 [facility] Serum or plasma calcium kings[place] urement (mass/volume)Ordered By: Russ Zamora on 04-17-2023 Calcium [Mass/Vol] 9.1 mg/dL 8.5-10.1 [facility] Serum or plasma creatinine m easurement (mass/volume)Ordered By: Russ Zamora on 04-17-2023 Creatinine [Mass/Vol] 1.87 mg/dL 0.70-1.30 [facility] Comment on above: The validity of the calculated GFR & GFRAA in patients over 70 years has not been determined. Clinical correlation is essential. Serum or plasma urea nitroge n measurement (mass/volume)Ordered By: Russ Zamora on 04-17-2023 Urea nitrogen [Mass/Vol] 38 mg/dL 7-18 [facility] Thin prep Papanicolaou smear with manual screeningOrdered By: Russ Zamora on 04-17-2023 Thin prep Papanicolaou smear with manual screening 16 U/L 15-37 [facility] Thin prep Papanicolaou smear with manual screening 7 5-15 [facility] Basophil percentageOrdered B y: Russ Zamora on 04-10-2023 Creatinine [Mass/Vol] 1.1 mg/dL 0.70-1.30 [facility] No Panel InformationOrdered By: Russ Zamora on 04-10-2023 Bedside Estimated GFR (eGFR) > 60.0000 mL/min >60 [facility] Anaerobic cultureOrdered By: Bonny Glynn on 01-13-2023 Bacteria identified Anaer cx Nom (Unsp spec) No anaerobic bacteria isolated. [facility] Bacteria identified Cx Nom ( Wound)Ordered By: Bonny Glynn on 01-11-2023 Wound Culture [facility] Gram stain for investigation of transfusion reactionOrdered By: Bonny Glynn on 01-09-2023 Microscopic observation Gram stain Nom (Unsp spec) [facility] Anaerobic cultureOrdered By: Bonny Glynn on 01-08-2023 Bacteria identified Anaer cx Nom (Unsp spec) No anaerobic bacteria isolated. [facility] Bacteria identified Cx Nom ( Wound)Ordered By: Bonny Glynn on 01-08-2023 Wound Culture Staphylococcus pseudintermediu [facility] Gram stain for investigation of transfusion reactionOrdered By: Bonny Glynn on 01-08-2023 Microscopic observation Gram stain Nom (Unsp spec) [facility] Laboratory - Microbiology an d Antimicrobial susceptibilityOrdered By: Dr. Ochoa on 01-05-2023 Bacteria identified Cx Nom (Bld) No growth in 5 days. [facility] Culture, urineOrdered By: Dr Marianna Ochoa on 01-02-2023 Bacteria identified Cx Nom (U) Culture exhibits no growth. [facility] Influenza virus A and B and SARS-CoV-2 (COVID-19) Ag panel - Upper respiratory specimOrdered By: Dr. Ochoa on 12-31-2022 SARS-CoV-2 & FLU Antigen (Rapid) Influenzae A [facility] Absolute lymphocyte countOrd ered By: Dr. Ochoa on 12-30-2022 Lymphocytes Auto (Unsp spec) [#/Vol] 0.68 10*3/uL 0.83-4.51 [facility] Basophil percentageOrdered B y: Dr. Ochoa on 12-30-2022 Basophil percentage 0-5 SEEN /hpf 0-5 [facility] Basophils/100 WBC (Bld) 0.5 % 0-1 [facility] Bilirubin [Mass/Vol] 0.50 mg/dL 0.20-1.00 [facility] Comment on above: For patients on eltr ombopag therapy, use of Dimension [place] TBIL is not recommended. Chloride [Moles/Vol] 102 mmol/L 98-107 [facility] Eosinophils/100 WBC (Bld) 0.2 % 0-5 [facility] Glucose [Mass/Vol] 119 mg/dL 74-106 [facility] Comment on above: Fasting Glucose resu lt from 100 to 125 mg/dL suggests IMPAIRED HOMEOSTASIS per A.D.A. criteria. Lactate [Moles/Vol] 1.4 mmol/L 0.4-2.0 [facility] Neutrophils (Bld) [#/Vol] 8.8 10*3/uL 2.0-7.7 [facility] Neutrophils/100 WBC (Bld) 83.3 % 47-70 [facility] Potassium [Moles/Vol] 5.2 mmol/L 3.5-5.1 [facility] Protein [Mass/Vol] 8.2 g/dL 6.4-8.2 [facility] Sodium [Moles/Vol] 134 mmol/L 136-145 [facility] WBC (Bld) [#/Vol] 10.6 10*3/uL 4.4-11.0 [facility] Bilirubin Test strip Ql (U)O rdered By: Dr. Ochoa on 12-30-2022 Bilirubin Ql (U) Negative Negative [facility] Blood erythrocytes count (nu mber/volume)Ordered By: Dr. Ochoa on 12-30-2022 RBC (Bld) [#/Vol] 4.36 10*6/uL 4.6-6.2 [facility] Blood hemoglobin measurement (mass/volume)Ordered By: Dr. Ochoa on 12-30-2022 Hemoglobin (Bld) [Mass/Vol] 12.1 g/dL 13.0-16.5 [facility] Blood lymphocytes/100 leukoc ytesOrdered By: Dr. Ochoa on 12-30-2022 Lymphocytes/100 WBC (Bld) 6.4 % 19-41 [facility] Blood monocytes/100 leukocyt esOrdered By: Dr. Ochoa on 12-30-2022 Monocytes/100 WBC (Bld) 9.1 % 0-10 [facility] Blood platelet mean volumeOr dered By: Dr. Ochoa on 12-30-2022 Platelet mean volume (Bld) [Entitic vol] 10.2 fL 6.2-12.0 [facility] Culture, urineOrdered By: Chino Ochoa on 12-30-2022 Bacteria identified Cx Nom (U) Culture exhibits no growth. [facility] Determination of erythrocyte mean corpuscular volume (MCV)Ordered By: Dr. Ochoa on 12-30-2022 MCV (RBC) [Entitic vol] 87.2 fL 80-94 [facility] Hematocrit Auto (Bld) [Volum e fraction]Ordered By: Dr. Ochoa on 12-30-2022 Hematocrit (Bld) [Volume fraction] 38.0 % 40-54 [facility] INR in Blood by Coagulation assayOrdered By: Dr. Ochoa on 12-30-2022 INR Coag (Bld) [Relative time] 1.3 {INR} [facility] Influenza virus A and B and SARS-CoV-2 (COVID-19) Ag panel - Upper respiratory specimOrdered By: Chris Ochoa on 12-30-2022 SARS-CoV-2 & FLU Antigen (Rapid) Influenzae A [facility] Ketones Test strip Ql (U)Ord ered By: Dr. Ochoa on 12-30-2022 Ketones Ql (U) Negative Negative [facility] Laboratory - Chemistry and C hemistry - challengeOrdered By: Dr. Ochoa on 12-30-2022 ALP [Catalytic activity/Vol] 53 U/L 45-117 [facility] ALT [Catalytic activity/Vol] 22 U/L 16-61 [facility] CO2 [Moles/Vol] 25.0 mmol/L 21.0-32.0 [facility] Globulin (S) [Mass/Vol] 4.7 g/dL 2.2-4.2 [facility] Urea nitrogen/Creatinine [Mass ratio] 22.0 mg/mg 10-20 [facility] Laboratory - CoagulationOrde red By: Dr. Ochoa on 12-30-2022 aPTT Coag (Bld) [Time] 38.9 s 24.1-36.2 [facility] PT Coag (PPP) [Time] 15.8 s 11.7-14.9 [facility] Laboratory - Hematology and Cell countsOrdered By: Dr. Ochoa on 12-30-2022 Erythrocyte distribution width (RBC) [Entitic vol] 50.5 fL 35.1-43.9 [facility] Erythrocyte distribution width (RBC) [Ratio] 15.9 % 11.6-14.6 [facility] Immature granulocytes/100 WBC (Bld) 0.500 % 0.0-0.9 [facility] Comment on above: IG% - Immature Granu locytes (promyelocytes, myelocytes and metamyelocytes) > 1% indicates that a LEFT SHIFT is Present. MCH (RBC) [Entitic mass] 27.8 pg 27.0-32.0 [facility] Nucleated RBC/100 WBC (Bld) [Ratio] 0 % 0-5 [facility] Laboratory - Microbiology an d Antimicrobial susceptibilityOrdered By: Chris Ochoa on 12-30-2022 Bacteria identified Cx Nom (Bld) No growth in 5 days. [facility] MCHC Auto (RBC) [Mass/Vol]Or dered By: Dr. Ochoa on 12-30-2022 MCHC (RBC) [Mass/Vol] 31.8 g/dL 32-36 [facility] Mucus LM Ql (Urine sed)Order ed By: Dr. Ochoa on 12-30-2022 Mucus Ql (Urine sed) 0 SEEN /hpf [facility] Nitrite Test strip Ql (U)Ord ered By: Dr. Ochoa on 12-30-2022 Nitrite Ql (U) Negative Negative [facility] No Panel InformationOrdered By: Dr. Ochoa on 12-30-2022 Estimated Creatinine Clearance Calc 27.91 ml/min [facility] Estimated GFR (MDRD) Amer 42 mL/min >60 [facility] Comment on above: GFR Calc Estimated GFR (MDRD) Non-Af Amer 35 mL/min >60 [facility] Comment on above: Non- GFR Calc Platelets bldOrdered By: Dr. Ochoa on 12-30-2022 Platelets (Bld) [#/Vol] 210 10*3/uL 150-450 [facility] Protein Test strip Ql (U)Ord ered By: Dr. Ochoa on 12-30-2022 Protein Ql (U) 100 mg/dl Negative [facility] Serum or plasma albumin kings[place] urement (mass/volume)Ordered By: Dr. Ochoa on 12-30-2022 Albumin [Mass/Vol] 3.5 g/dL 3.2-5.0 [facility] Serum or plasma albumin/glob ulin mass ratioOrdered By: Dr. Ochoa on 12-30-2022 Albumin/Globulin [Mass ratio] 0.7 {ratio} 0.9-2.4 [facility] Serum or plasma calcium [place] urement (mass/volume)Ordered By: Dr. Ochoa on 12-30-2022 Calcium [Mass/Vol] 9.2 mg/dL 8.5-10.1 [facility] Serum or plasma creatinine m easurement (mass/volume)Ordered By: Dr. Ochoa on 12-30-2022 Creatinine [Mass/Vol] 2.00 mg/dL 0.70-1.30 [facility] Comment on above: The validity of the calculated GFR & GFRAA in patients over 70 years has not been determined. Clinical correlation is essential. Serum or plasma urea nitroge n measurement (mass/volume)Ordered By: Dr. Ochoa on 12-30-2022 Urea nitrogen [Mass/Vol] 44 mg/dL 7-18 [facility] Squamous epithelial cells de tection in urine sediment by light microscopyOrdered By: Dr. Ochoa on 12-30-2022 Epithelial cells.squamous LM Ql (Urine sed) 0 SEEN /hpf 0-5 [facility] Thin prep Papanicolaou smear with manual screeningOrdered By: Dr. Ochoa on 12-30-2022 Thin prep Papanicolaou smear with manual screening 22 U/L 15-37 [facility] Thin prep Papanicolaou smear with manual screening 7 5-15 [facility] Urine blood detectionOrdered By: Dr. Ochoa on 12-30-2022 RBC Ql (U) 25 /ul Negative [facility] RBC Ql (U) 0 SEEN /hpf 0-5 [facility] Urine clarityOrdered By: Dr. Ochoa on 12-30-2022 Clarity (U) Clear Clear [facility] Urine color determinationOrd ered By: Dr. Ochoa on 12-30-2022 Color (U) Yellow Yellow [facility] Urine glucose detectionOrder ed By: Dr. Ochoa on 12-30-2022 Glucose Ql (U) Normal mg/dl Normal [facility] Urine leukocyte esterase det ection by dipstickOrdered By: Dr. Ochoa on 12-30-2022 Leukocyte esterase Test strip Ql (U) 25 /ul Negative [facility] Urine pHOrdered By: Dr. Amy chowdhury on 12-30-2022 pH (U) 7.0 [pH] 5.0 - 8.0 [facility] Urine sediment bacteria coun t by microscopy (number/high power field)Ordered By: Dr. Ochoa on 12-30-2022 Bacteria LM.HPF (Urine sed) [#/Area] 0 /[HPF] None Seen [facility] Urine specific gravity measu rementOrdered By: Dr. Ochoa on 12-30-2022 Specific gravity (U) [Rel density] 1.005 1.002-1.03 0 [facility] Urobilinogen Auto test strip Ql (U)Ordered By: Dr. Ochoa on 12-30-2022 Urobilinogen Ql (U) Normal mg/dl Normal [facility] Absolute lymphocyte countOrd ered By: Dr. Zamora on 10-16-2022 Lymphocytes Auto (Unsp spec) [#/Vol] 1.25 10*3/uL 0.83-4.51 [facility] Basophil percentageOrdered B y: Dr. Zamora on 10-16-2022 Basophils/100 WBC (Bld) 0.6 % 0-1 [facility] Bilirubin [Mass/Vol] 0.30 mg/dL 0.20-1.00 [facility] Comment on above: For patients on eltr ombopag therapy, use of Dimension [place] TBIL is not recommended. Chloride [Moles/Vol] 106 mmol/L 98-107 [facility] Eosinophils/100 WBC (Bld) 1.4 % 0-5 [facility] Glucose [Mass/Vol] 225 mg/dL 74-106 [facility] Comment on above: Glucose result great er than or equal to 200 mg/dLsuggests DIABETES MELLITUS per A.D.A. criteria. LDH [Catalytic activity/Vol] 135 U/L 87-241 [facility] Neutrophils (Bld) [#/Vol] 5.1 10*3/uL 2.0-7.7 [facility] Neutrophils/100 WBC (Bld) 70.2 % 47-70 [facility] Potassium [Moles/Vol] 4.5 mmol/L 3.5-5.1 [facility] Protein [Mass/Vol] 7.8 g/dL 6.4-8.2 [facility] Sodium [Moles/Vol] 139 mmol/L 136-145 [facility] WBC (Bld) [#/Vol] 7.3 10*3/uL 4.4-11.0 [facility] Blood erythrocytes count (nu mber/volume)Ordered By: Dr. Zamora on 10-16-2022 RBC (Bld) [#/Vol] 3.94 10*6/uL 4.6-6.2 [facility] Blood hemoglobin measurement (mass/volume)Ordered By: Dr. Zamora on 10-16-2022 Hemoglobin (Bld) [Mass/Vol] 11.5 g/dL 13.0-16.5 [facility] Blood lymphocytes/100 leukoc ytesOrdered By: Dr. Zamora on 10-16-2022 Lymphocytes/100 WBC (Bld) 17.2 % 19-41 [facility] Blood monocytes/100 leukocyt esOrdered By: Dr. Zamora on 10-16-2022 Monocytes/100 WBC (Bld) 9.8 % 0-10 [facility] Blood platelet mean volumeOr dered By: Dr. Zamora on 10-16-2022 Platelet mean volume (Bld) [Entitic vol] 9.9 fL 6.2-12.0 [facility] Determination of erythrocyte mean corpuscular volume (MCV)Ordered By: Dr. Zamora on 10-16-2022 MCV (RBC) [Entitic vol] 91.1 fL 80-94 [facility] Hematocrit Auto (Bld) [Volum e fraction]Ordered By: Dr. Zamora on 10-16-2022 Hematocrit (Bld) [Volume fraction] 35.9 % 40-54 [facility] Laboratory - Chemistry and C hemistry - challengeOrdered By: Dr. Zamora on 10-16-2022 ALP [Catalytic activity/Vol] 52 U/L 45-117 [facility] ALT [Catalytic activity/Vol] 19 U/L 16-61 [facility] CO2 [Moles/Vol] 26.0 mmol/L 21.0-32.0 [facility] Globulin (S) [Mass/Vol] 4.5 g/dL 2.2-4.2 [facility] Urea nitrogen/Creatinine [Mass ratio] 17.5 mg/mg 10-20 [facility] Laboratory - Hematology and Cell countsOrdered By: Dr. Zamora on 10-16-2022 Erythrocyte distribution width (RBC) [Entitic vol] 50.4 fL 35.1-43.9 [facility] Erythrocyte distribution width (RBC) [Ratio] 15.2 % 11.6-14.6 [facility] Immature granulocytes/100 WBC (Bld) 0.800 % 0.0-0.9 [facility] Comment on above: IG% - Immature Granu locytes (promyelocytes, myelocytes and metamyelocytes) > 1% indicates that a LEFT SHIFT is Present. MCH (RBC) [Entitic mass] 29.2 pg 27.0-32.0 [facility] Nucleated RBC/100 WBC (Bld) [Ratio] 0 % 0-5 [facility] MCHC Auto (RBC) [Mass/Vol]Or dered By: Dr. Zamora on 10-16-2022 MCHC (RBC) [Mass/Vol] 32.0 g/dL 32-36 [facility] No Panel InformationOrdered By: Dr. Zamora on 10-16-2022 Estimated GFR (MDRD) Amer 45 mL/min >60 [facility] Comment on above: GFR Calc Estimated GFR (MDRD) Non-Af Amer 37 mL/min >60 [facility] Comment on above: Non- GFR Calc Platelets bldOrdered By: Dr. Zamora on 10-16-2022 Platelets (Bld) [#/Vol] 193 10*3/uL 150-450 [facility] Serum or plasma albumin kingsley urement (mass/volume)Ordered By: Dr. Zamora on 10-16-2022 Albumin [Mass/Vol] 3.3 g/dL 3.2-5.0 [facility] Serum or plasma albumin/glob ulin mass ratioOrdered By: Dr. Zamora on 10-16-2022 Albumin/Globulin [Mass ratio] 0.7 {ratio} 0.9-2.4 [facility] Serum or plasma calcium kingsley urement (mass/volume)Ordered By: Dr. Zamora on 10-16-2022 Calcium [Mass/Vol] 9.3 mg/dL 8.5-10.1 [facility] Serum or plasma creatinine m easurement (mass/volume)Ordered By: Dr. Zamora on 10-16-2022 Creatinine [Mass/Vol] 1.89 mg/dL 0.70-1.30 [facility] Comment on above: The validity of the calculated GFR & GFRAA in patients over 70 years has not been determined. Clinical correlation is essential. Serum or plasma urea nitroge n measurement (mass/volume)Ordered By: Dr. Zamora on 10-16-2022 Urea nitrogen [Mass/Vol] 33 mg/dL 7-18 [facility] Thin prep Papanicolaou smear with manual screeningOrdered By: Dr. Zamora on 10-16-2022 Thin prep Papanicolaou smear with manual screening 17 U/L 15-37 [facility] Thin prep Papanicolaou smear with manual screening 7 5-15 [facility] Basophil percentageOrdered B y: Dr. Zamora on 10-09-2022 Creatinine [Mass/Vol] 1.4 mg/dL 0.70-1.30 [facility] Laboratory - Chemistry and C hemistry - challengeOrdered By: Dr. 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 [facility] Bilirubin Test strip Ql (U)O rdered By: Bonny Glynn on 10-02-2022 Bilirubin Ql (U) Negative Negative [facility] Ketones Test strip Ql (U)Ord ered By: Bonny Glynn on 10-02-2022 Ketones Ql (U) Negative Negative [facility] Nitrite Test strip Ql (U)Ord ered By: Bonny Glynn on 10-02-2022 Nitrite Ql (U) Positive Negative [facility] Protein Test strip Ql (U)Ord ered By: Bonny Glynn on 10-02-2022 Protein Ql (U) 100 mg/dl Negative [facility] Urine blood detectionOrdered By: Bonny Glynn on 10-02-2022 RBC Ql (U) 25 /ul Negative [facility] Urine clarityOrdered By: Ysabel Glynn on 10-02-2022 Clarity (U) Cloudy Clear [facility] Urine color determinationOrd ered By: Bonny Glynn on 10-02-2022 Color (U) Yellow Yellow [facility] Urine glucose detectionOrder ed By: Bonny Glynn on 10-02-2022 Glucose Ql (U) 50 mg/dl Normal [facility] Urine leukocyte esterase det ection by dipstickOrdered By: Bonny Glynn on 10-02-2022 Leukocyte esterase Test strip Ql (U) 500 /ul Negative [facility] Urine pHOrdered By: Bonny orosco on 10-02-2022 pH (U) 6.0 [pH] 5.0 - 8.0 [facility] Urine specific gravity measu rementOrdered By: Bonny Glynn on 10-02-2022 Specific gravity (U) [Rel density] 1.010 1.002-1.03 0 [facility] Urobilinogen Auto test strip Ql (U)Ordered By: Bonny Glynn on 10-02-2022 Urobilinogen Ql (U) Normal mg/dl Normal [facility] CNPLigia 07-28-2022 CNPN Telephone ([facility]) -- PEDRO HILLMAN ([id number]) 1945 M Date Time Provider Department 07/28/22 JESSIE RODRIGUEZ [facility] During your visit today, we recorded the following information about you: Jessie Rodriguez APRN.CNP 07/28/2022 1:45 PM Signed In [...] Status:Closed by JESSIE RODRIGUEZ on 08/09/22 Normal [facility] Anaerobic cultureOrdered By: Bonny Glynn on 07-21-2022 Bacteria identified Anaer cx Nom (Unsp spec) No anaerobic bacteria isolated. [facility] Bacteria identified Cx Nom ( Wound)Ordered By: Bonny Glynn on 07-20-2022 Wound Culture Staphylococcus pseudintermediu [facility] Gram stain for investigation of transfusion reactionOrdered By: Bonny Glynn on 07-19-2022 Microscopic observation Gram stain Nom (Unsp spec) [facility] No Panel InformationOrdered By: Dr. Choi on 06-01-2022 Estimated GFR (MDRD) Amer 63 mL/min >60 [facility] Comment on above: GFR Calc Estimated GFR (MDRD) Non-Af Amer 52 mL/min >60 [facility] Comment on above: Non- GFR Calc Serum or plasma creatinine m easurement (mass/volume)Ordered By: Dr. Choi on 06-01-2022 Creatinine [Mass/Vol] 1.40 mg/dL 0.70-1.30 [facility] Comment on above: The validity of the calculated GFR & GFRAA in patients over 70 years has not been determined. Clinical correlation is essential. Basophil percentageon 2021 Basophil percentage < 0.9 mg/dL 0.70-1.30 [facility] Work Phone: No Panel Informationon 05-22 Bedside Estimated GFR (eGFR) > 60.0000 mL/min >60 [facility] Work Phone: Absolute lymphocyte counton 04-14-2022 Lymphocytes Auto (Unsp spec) [#/Vol] 0.64 10*3/uL 0.83-4.51 [facility] Work Phone: Basophil percentageon 2021 Basophil percentage 0 SEEN /hpf 0-5 [facility] Work Phone: Basophils/100 WBC (Bld) 0.3 % 0-1 [facility] Work Phone: Bilirubin [Mass/Vol] 0.50 mg/dL 0.20-1.00 [facility] Work Phone: Comment on above: For patients on eltr ombopag therapy, use of Dimension [place] TBIL is not recommended. Chloride [Moles/Vol] 103 mmol/L 98-107 [facility] Work Phone: Eosinophils/100 WBC (Bld) 0.5 % 0-5 [facility] Work Phone: Glucose [Mass/Vol] 46 mg/dL 74-106 [facility] Work Phone: Comment on above: Glucose result less than 50 mg/dL suggests HYPOGLYCEMIA. Neutrophils (Bld) [#/Vol] 5.0 10*3/uL 2.0-7.7 [facility] Work Phone: Neutrophils/100 WBC (Bld) 76.1 % 47-70 [facility] Work Phone: Potassium [Moles/Vol] 4.2 mmol/L 3.5-5.1 [facility] Work Phone: Protein [Mass/Vol] 8.2 g/dL 6.4-8.2 [facility] Work Phone: Sodium [Moles/Vol] 136 mmol/L 136-145 [facility] Work Phone: WBC (Bld) [#/Vol] 6.6 10*3/uL 4.4-11.0 [facility] Work Phone: [phone] Bilirubin Test strip Ql (U)o n 04-14-2022 Bilirubin Ql (U) Negative Negative [facility] Work Phone: Blood erythrocytes count (nu mber/volume)on 04-14-2022 RBC (Bld) [#/Vol] 5.00 10*6/uL 4.6-6.2 [facility] Work Phone: Blood hemoglobin measurement (mass/volume)on 04-14-2022 Hemoglobin (Bld) [Mass/Vol] 13.9 g/dL 13.0-16.5 [facility] Work Phone: Blood lymphocytes/100 leukoc yteson 04-14-2022 Lymphocytes/100 WBC (Bld) 9.7 % 19-41 [facility] Work Phone: Blood monocytes/100 leukocyt eson 04-14-2022 Monocytes/100 WBC (Bld) 12.3 % 0-10 [facility] Work Phone: [phone] Blood platelet mean volumeon 04-14-2022 Platelet mean volume (Bld) [Entitic vol] 10.5 fL 6.2-12.0 [facility] Work Phone: Determination of erythrocyte mean corpuscular volume (MCV)on 04-14-2022 MCV (RBC) [Entitic vol] 86.4 fL 80-94 [facility] Work Phone: [phone] Glucose Glucometer (BldC) [M ass/Vol]on 04-14-2022 Glucose [Mass/Vol] 113 mg/dL 74-106 [facility] Work Phone: Comment on above: MANAGEMENT OF PATIEN T CARE PER NURSING PROTOCOL Hematocrit Auto (Bld) [Volum e fraction]on 04-14-2022 Hematocrit (Bld) [Volume fraction] 43.2 % 40-54 [facility] Work Phone: INR in Blood by Coagulation assayon 04-14-2022 INR Coag (Bld) [Relative time] 1.1 {INR} [facility] Work Phone: Ketones Test strip Ql (U)on 04-14-2022 Ketones Ql (U) 5 mg/dl Negative [facility] Work Phone: Laboratory - Chemistry and C hemistry - challengeon 04-14-2022 ALP [Catalytic activity/Vol] 63 U/L 45-117 [facility] Work Phone: [phone] ALT [Catalytic activity/Vol] 29 U/L 16-61 [facility] Work Phone: [phone] CO2 [Moles/Vol] 25.0 mmol/L 21.0-32.0 [facility] Work Phone: [phone] Globulin (S) [Mass/Vol] 5.1 g/dL 2.2-4.2 [facility] Work Phone: Urea nitrogen/Creatinine [Mass ratio] 37.6 mg/mg 10-20 [facility] Work Phone: Laboratory - Coagulationon 0 04-14-2022 PT Coag (PPP) [Time] 14.0 s 11.7-14.9 [facility] Work Phone: Laboratory - Hematology and Cell countson 04-14-2022 Erythrocyte distribution width (RBC) [Entitic vol] 49.0 fL 35.1-43.9 [facility] Work Phone: Erythrocyte distribution width (RBC) [Ratio] 15.4 % 11.6-14.6 [facility] Work Phone: Immature granulocytes/100 WBC (Bld) 1.100 % 0.0-0.9 [facility] Work Phone: Comment on above: IG% - Immature Granu locytes (promyelocytes, myelocytes and metamyelocytes) > 1% indicates that a LEFT SHIFT is Present. MCH (RBC) [Entitic mass] 27.8 pg 27.0-32.0 [facility] Work Phone: Nucleated RBC/100 WBC (Bld) [Ratio] 0 % 0-5 [facility] Work Phone: MCHC Auto (RBC) [Mass/Vol]on 04-14-2022 MCHC (RBC) [Mass/Vol] 32.2 g/dL 32-36 [facility] Work Phone: Mucus LM Ql (Urine sed)on Mucus Ql (Urine sed) 0 SEEN /hpf [facility] Work Phone: Nitrite Test strip Ql (U)on 04-14-2022 Nitrite Ql (U) Negative Negative [facility] Work Phone: No Panel Informationon 04-14 Estimated Creatinine Clearance Calc 35.56 ml/min [facility] Work Phone: Estimated GFR (MDRD) Amer 55 mL/min >60 [facility] Work Phone: Comment on above: GFR Calc Estimated GFR (MDRD) Non-Af Amer 46 mL/min >60 [facility] Work Phone: Comment on above: Non- GFR Calc Platelets bldon 04-14-2022 Platelets (Bld) [#/Vol] 293 10*3/uL 150-450 [facility] Work Phone: [phone] Platelets (Bld) [#/Vol] 287 10*3/uL 150-450 [facility] Work Phone: [phone] Protein Test strip Ql (U)on 04-14-2022 Protein Ql (U) 30 mg/dl Negative [facility] Work Phone: Serum or plasma albumin kingsley urement (mass/volume)on 04-14-2022 Albumin [Mass/Vol] 3.1 g/dL 3.2-5.0 [facility] Work Phone: Serum or plasma albumin/glob ulin mass ratioon 04-14-2022 Albumin/Globulin [Mass ratio] 0.6 {ratio} 0.9-2.4 [facility] Work Phone: Serum or plasma calcium kingsley urement (mass/volume)on 04-14-2022 Calcium [Mass/Vol] 9.9 mg/dL 8.5-10.1 [facility] Work Phone: Serum or plasma creatinine m easurement (mass/volume)on 04-14-2022 Creatinine [Mass/Vol] 1.57 mg/dL 0.70-1.30 [facility] Work Phone: Comment on above: The validity of the calculated GFR & GFRAA in patients over 70 years has not been determined. Clinical correlation is essential. Serum or plasma urea nitroge n measurement (mass/volume)on 04-14-2022 Urea nitrogen [Mass/Vol] 59 mg/dL 7-18 [facility] Work Phone: Squamous epithelial cells de tection in urine sediment by light microscopyon 04-14-2022 Epithelial cells.squamous LM Ql (Urine sed) 0-5 SEEN /hpf 0-5 [facility] Work Phone: Thin prep Papanicolaou smear with manual screeningon 04-14-2022 Thin prep Papanicolaou smear with manual screening 30 U/L 15-37 [facility] Work Phone: Thin prep Papanicolaou smear with manual screening 8 5-15 [facility] Work Phone: Urine blood detectionon - RBC Ql (U) Negative Negative [facility] Work Phone: RBC Ql (U) 0 SEEN /hpf 0-5 [facility] Work Phone: Urine clarityon 04-14-2022 Clarity (U) Clear Clear [facility] Work Phone: Urine color determinationon 04-14-2022 Color (U) Yellow Yellow [facility] Work Phone: [phone] Urine glucose detectionon Glucose Ql (U) Normal mg/dl Normal [facility] Work Phone: Urine leukocyte esterase det ection by dipstickon 04-14-2022 Leukocyte esterase Test strip Ql (U) 25 /ul Negative [facility] Work Phone: [phone] Urine pHon 04-14-2022 pH (U) 6.0 [pH] 5.0 - 8.0 [facility] Work Phone: Urine sediment bacteria coun t by microscopy (number/high power field)on 04-14-2022 Bacteria LM.HPF (Urine sed) [#/Area] 0 /[HPF] None Seen [facility] Work Phone: [phone] Urine specific gravity measu rementon 04-14-2022 Specific gravity (U) [Rel density] 1.010 1.002-1.03 0 [facility] Work Phone: [phone] Urobilinogen Auto test strip Ql (U)on 04-14-2022 Urobilinogen Ql (U) Normal mg/dl Normal [facility] Work Phone: [phone] Basophil percentageon 2021 Creatinine [Mass/Vol] 1.4 mg/dL 0.70-1.30 [facility] Work Phone: Laboratory - Chemistry and C hemistry - challengeon 04-12-2022 GFR/1.73 sq M.predicted among non-blacks MDRD (S/P/Bld) [Vol rate/Area] 50.0000 mL/min/{1.73_m2} >60 [facility] Work Phone: CNPLigia 04-06-2022 CNPN Telephone ([facility]) -- PEDRO HILLMAN ([id number]) 1945 M Date Time Provider Department 04/06/22 DEREK WHELAN [facility] During your visit today, we recorded [...] Signed Still unable to reach patient and account contact associate is spouse with same number.Sigrid Kelley 04/07/2022 5:49 PM Signed Unable to reach patient. Mailbox full/Mailbox not set up/ Number incorrect. Please try again later. Ashley Nish Kelley 04/08/2022 9:23 AM Signed left message on machine to give call back, different number from pharmacy. [phone]. Ashley Millerselam Kelley 04/08/2022 2:56 PM Signed Notified pt [...] Osteoarthrosis, unspecified whether generalized*04/14/2014 Encounter Status:Closed by NISH ASHLEY on 04/08/22 Normal [facility] Bacteria Ur Culton 2 Bacteria identified Cx Nom (U) [id number] Abnormal [facility] Comment on above: Order Comment: Speci men Type: URINE SPECIMEN Ordering Facility: [facility] Address: [address] [place] [address] Result Comment: >=10 0,000 CFU/ml Streptococcus mitis-oralis group No further workup Performed By: #### 6 30-4 #### [facility] CLIA [id number] [address] [place] [address] [place] CNOVon 04-05-2022 CNOV Office Visit ([facility] ) -- PEDRO HILLMAN ([id number]) 1945 M Date Time Provider Department 04/05/22 1:15 PM JESSIE RODRIGUEZWSTAE During your visit today, we recorded the following information about you: Temperature Pulse Respiration Blood pressure 101.6 degrees 76/minute 16/minute 122/76 Weight 87.1 kg Jessie Rodriguez APRN.[employer] 04/05/2022 3:51 PM Signed Subjective HPI Pedro [...] ICD10: Z20.822 - COVID WITH FLUA+B, ROUTINE WOODROW Xiao APRN.CNP 04/05/2022 2:27 PM Addendum ASSESSMENT/PLAN: 1. Burning [...] up a (more content not included)... [facility] PEDRO HILLMAN ([id number]) 1945 M Date Time Provider Department 04/05/22 JESSIE RODRIGUEZ [facility] During your visit today, we recorded the following information about you: Jessie Rodriguez APRN.SHANI 04/05/2022 2:59 PM Signed Radiology report faxed to patient's PCP Dr. Tonio Fajardo at [phone]. Confirmation of fax received. Patient was advised to call Dr. Fajardo today for a follow up appointment. Jessie Rodriguez APRN.[employer] Allergies As of Date: 04/05/2022 Noted Allergy [...] Status:Closed by JESSIE RODRIGUEZ on 04/05/22 Normal [facility] No Panel InformationOrdered By: [facility] Provider on 04-05-2022 Radiology Result ACTIONABLE Abnormal [facility] Comment on above: This report contains an [...] 2021 BILIRUBIN UA (POCT) Negative Negative [facility] CLARITY UA (POCT) Cloudy [facility] COLOR UA (POCT) Dark yellow [facility] GLUCOSE UA (POCT) Negative Negative mg/dL [facility] HEMOGLOBIN/BLOOD UA (POCT) Small Abnormal Negative [facility] KETONE UA (POCT) Negative Negative mg/dL [facility] LEUKOCYTES UA (POCT) Large Abnormal Negative [facility] NITRITE UA (POCT) Negative Negative [facility] PH UA (POCT) 6.0 4.5 - 8.0 [facility] Protein Ql (U) 100 mg/dL Abnormal Negative mg/dL [facility] SPECIFIC GRAVITY UA (POCT) 1.020 1.005 - 1.030 [facility] UROBILINOGEN UA (POCT) 0.2 E.U./dL Umm l E.U./dL [facility] XR CHEST 2V FRONTAL/LATon XR CHEST [...] be communicated with the ordering provider via [employer] staff message or phone message by [employer] within 2 business days of report finalization. Algorithms for management of incidental imaging findings can be found on the [facility] Intranet Sharepoint site at: [email or web address] ng%20Incidental%20Findi ngs%20at%20Imaging/Forms/A llItems.aspx Extract Puller: JONATHAN Transcribe Date/Time: Apr 05 2022 2:11P Dictated by : SANDEEP ORTIZ MD This examination was interpreted and the report reviewed and electronically signed by: SANDEEP ORTIZ MD on Apr 05 2022 2:13PM EST [id number] ACTIONABLE Invalid Interpretation Code [facility] XR Chest PA and LateralOrder ed By: [facility] Provider on 04-05-2022 Interpretation and review of laboratory results Abnormal [facility] XR Chest PA and Lateralon IMPRESSION: 4.5 [...] be communicated with the ordering provider via [employer] staff message or phone message by [employer] within 2 business days of report finalization. Algorithms for management of incidental imaging findings can be found on the [facility] Intranet Sharepoint site at: [email or web address] ng%20Incidental%20Findi ngs%20at%20Imaging/Forms/A llItems.aspx Extract Puller: PSCB Transcribe Date/Time: Apr 05 2022 2:11P Dictated by : SANDEEP ORTIZ MD This examination was interpreted and the report reviewed and electronically signed by: SANDEEP ORTIZ MD on Apr 05 2022 2:13PM EST DIVISION OF RADIOLOGY * * *Final Report* [...] be communicated with the ordering provider via [employer] staff message or phone message by [employer] within 2 business days of report finalization. Algorithms for management of incidental imaging findings can be found on the [facility] Intranet Sharepoint site at: [email or web address] ng%20Incidental%20Findi ngs%20at%20Imaging/Forms/A llItems.aspx Extract Puller: JONATHAN Transcribe Date/Time: Apr 05 2022 2:11P Dictated by : SANDEEP ORTIZ MD This examination was interpreted and the report reviewed and electronically signed by: SANDEEP ORTIZ MD on Apr 05 2022 2:13PM EST [facility] Radiology Study observation (narrative) [facility] Anaerobic culture Bacteria identified Anaer cx Nom (Unsp spec) No anaerobic bacteria isolated. [facility] Work Phone: Bacteria identified Anaer cx Nom (Unsp spec) Anaerobic Culture Anaerobic cocci [facility] Work Phone: Bacteria identified Cx Nom ( Wound) Wound Culture Staphylococcus pseudintermediu [facility] Work Phone: Wound Culture Staphylococcus saprophyticus [facility] Work Phone: Gram stain for investigation of transfusion reaction Microscopic observation Gram stain Nom (Unsp spec) [facility] Work Phone: Vital Signs Date Time Vital Sign Value Performing Clinician Facility 04-13-2025 02:37-0400 Inhaled oxygen flow rate 15 L/min Dr. Tonio Fajardo DO Work Phone: [facility] 04-13-2025 02:37-0400 SaO2% (BldA) [Mass fraction] 100 % Dr. Tonio Fajardo DO Work Phone: [facility] 04-13-2025 00:56-0400 Body temperature 97.8 [degF] Dr. Tonio Fajardo DO Work Phone: [facility] 04-13-2025 00:56-0400 Diastolic blood pressure 71 mm[Hg] Dr. Tonio Fajardo DO Work Phone: [facility] 04-13-2025 00:56-0400 Heart rate 106 /min Dr. Tonio Fajardo DO Work Phone: [facility] 04-13-2025 00:56-0400 Respiratory rate 21 /min Dr. Tonio Fajardo DO Work Phone: [facility] 04-13-2025 00:56-0400 Systolic blood pressure 129 mm[Hg] Dr. Tonio Fajardo DO Work Phone: [facility] 04-12-2025 23:03-0400 Body temperature 97.8 [degF] Dr. Tonio Fajardo DO Work Phone: [facility] 04-12-2025 23:03-0400 Diastolic blood pressure 80 mm[Hg] Dr. Tonio Fajardo DO Work Phone: [facility] 04-12-2025 23:03-0400 Heart rate 109 /min Dr. Tonio Fajardo DO Work Phone: [facility] 04-12-2025 23:03-0400 Respiratory rate 21 /min Dr. Tonio Fajardo DO Work Phone: [facility] 04-12-2025 23:03-0400 SaO2% (BldA) [Mass fraction] 100 % Dr. Tonio Fajardo DO Work Phone: [facility] 04-12-2025 23:03-0400 Systolic blood pressure 142 mm[Hg] Dr. Tonio Fajardo DO Work Phone: [facility] 04-12-2025 22:00-0400 Inhaled oxygen flow rate 15 L/min Dr. Tonio Fajardo DO Work Phone: [facility] 04-12-2025 18:05-0400 Body height 167.[address] Tonio Fajardo DO Work Phone: [facility] 04-12-2025 18:05-0400 Body mass index (BMI) [Ratio] 25.4 kg/m2 Dr. Tonio Fajardo DO Work Phone: [facility] 04-12-2025 18:05-0400 Body weight 71.[address] Tonio Fajardo DO Work Phone: [facility] 04-12-2025 16:46-0400 Heart rate 115 /min Dr. Tonio Fajardo DO Work Phone: [facility] 04-12-2025 15:40-0400 Diastolic blood pressure 74 mm[Hg] Dr. Tonio Fajardo DO Work Phone: [facility] 04-12-2025 15:40-0400 Inhaled oxygen flow rate 3 L/min Dr. Tonio Fajardo DO Work Phone: [facility] 04-12-2025 15:40-0400 Respiratory rate 22 /min Dr. Tonio Fajardo DO Work Phone: [facility] 04-12-2025 15:40-0400 SaO2% (BldA) [Mass fraction] 96 % Dr. Tonio Fajardo DO Work Phone: [facility] 04-12-2025 15:40-0400 Systolic blood pressure 146 mm[Hg] Dr. Tonio Fajardo DO Work Phone: [facility] 04-12-2025 08:52-0400 Body temperature 96.7 [degF] Dr. Tonio Fajardo DO Work Phone: [facility] 04-11-2025 12:48-0400 Body weight 70.[address] Tonio Fajardo DO Work Phone: [facility] 04-10-2025 23:00-0400 Body mass index (BMI) [Ratio] 25.2 kg/m2 Dr. Tonio Fajardo DO Work Phone: [facility] 04-10-2025 16:21-0400 Body temperature 98.6 [degF] Dr. Tonio Fajardo DO Work Phone: [facility] 04-10-2025 16:21-0400 Diastolic blood pressure 82 mm[Hg] Dr. Tonio Fajardo DO Work Phone: [facility] 04-10-2025 16:21-0400 Heart rate 106 /min Dr. Tonio Fajardo DO Work Phone: [facility] 04-10-2025 16:21-0400 Inhaled oxygen flow rate 3 L/min Dr. Tonio Fajardo DO Work Phone: [facility] 04-10-2025 16:21-0400 Respiratory rate 18 /min Dr. Tonio Fajardo DO Work Phone: [facility] 04-10-2025 16:21-0400 SaO2% (BldA) [Mass fraction] 100 % Dr. Tonio Fajardo DO Work Phone: [facility] 04-10-2025 16:21-0400 Systolic blood pressure 142 mm[Hg] Dr. Tonio Fajardo DO Work Phone: [facility] 04-10-2025 14:30-0400 Body height 167.[address] Tonio Fajardo DO Work Phone: [facility] 04-10-2025 14:30-0400 Body weight 75.[address] Tonio Fajardo DO Work Phone: [facility] 04-10-2025 05:10-0400 Body mass index (BMI) [Ratio] 26.7 kg/m2 Dr. Tonio Fajardo DO Work Phone: [facility] 04-07-2025 00:00-0400 Inhaled oxygen concentration 35 % Dr. Tonio Fajardo DO Work Phone: [facility] 04-05-2025 20:00-0400 Diastolic blood pressure 65 mm[Hg] Dr. Tonio Fajardo DO Work Phone: [facility] 04-05-2025 20:00-0400 Heart rate 103 /min Dr. Tonio Fajardo DO Work Phone: [facility] 04-05-2025 20:00-0400 Inhaled oxygen flow rate 4 L/min Dr. Tonio Fajardo DO Work Phone: [facility] 04-05-2025 20:00-0400 Respiratory rate 25 /min Dr. Tonio Fajardo DO Work Phone: [facility] 04-05-2025 20:00-0400 SaO2% (BldA) [Mass fraction] 92 % Dr. Tonio Fajardo DO Work Phone: [facility] 04-05-2025 20:00-0400 Systolic blood pressure 119 mm[Hg] Dr. Tonio Fajardo DO Work Phone: [facility] 04-05-2025 19:12-0400 Body temperature 98 [degF] Dr. Tonio Fajardo DO Work Phone: [facility] 04-05-2025 16:41-0400 Body height 167.[address] Tonio Fajardo DO Work Phone: [facility] 04-05-2025 16:41-0400 Body mass index (BMI) [Ratio] 28 kg/m2 Dr. Tonio Fajardo DO Work Phone: [facility] 04-05-2025 16:41-0400 Body weight 78.[address] Tonio Fajardo DO Work Phone: [facility] 03-17-2025 13:07-0400 Body height 167.[address] Tonio Fajardo DO Work Phone: [facility] 03-17-2025 13:07-0400 Body mass index (BMI) [Ratio] 26.6 kg/m2 Dr. Tonio Fajardo DO Work Phone: [facility] 03-17-2025 13:07-0400 Body weight 74.[address] Tonio Fajardo DO Work Phone: [facility] 03-17-2025 13:07-0400 Diastolic blood pressure 60 mm[Hg] Dr. Tonio Fajardo DO Work Phone: [facility] 03-17-2025 13:07-0400 Heart rate 101 /min Dr. Tonio Fajardo DO Work Phone: [facility] 03-17-2025 13:07-0400 Inhaled oxygen flow rate 3 L/min Dr. Tonio Fajardo DO Work Phone: [facility] 03-17-2025 13:07-0400 Respiratory rate 20 /min Dr. Tonio Fajardo DO Work Phone: [facility] 03-17-2025 13:07-0400 SaO2% (BldA) [Mass fraction] 96 % Dr. Tonio Fajardo DO Work Phone: [facility] 03-17-2025 13:07-0400 Systolic blood pressure 124 mm[Hg] Dr. Tonio Fajardo DO Work Phone: [facility] 03-15-2025 18:32-0400 Body temperature 98.1 [degF] Dr. Tonio Fajardo DO Work Phone: [facility] 03-15-2025 18:32-0400 Diastolic blood pressure 71 mm[Hg] Dr. Tonio Fajardo DO Work Phone: [facility] 03-15-2025 18:32-0400 Heart rate 101 /min Dr. Tonio Fajardo DO Work Phone: [facility] 03-15-2025 18:32-0400 Respiratory rate 18 /min Dr. Tonio Fajardo DO Work Phone: [facility] 03-15-2025 18:32-0400 SaO2% (BldA) [Mass fraction] 93 % Dr. Tonio Fajardo DO Work Phone: [facility] 03-15-2025 18:32-0400 Systolic blood pressure 168 mm[Hg] Dr. Tonio Fajardo DO Work Phone: [facility] 03-15-2025 16:58-0400 Body height 167.[address] Tonio Fajardo DO Work Phone: [facility] 03-15-2025 16:58-0400 Body mass index (BMI) [Ratio] 27.8 kg/m2 Dr. Tonio Fajardo DO Work Phone: [facility] 03-15-2025 16:58-0400 Body weight 78.[address] Tonio Fajardo DO Work Phone: [facility] 03-15-2025 16:58-0400 Inhaled oxygen flow rate 3 L/min Dr. Tonio Fajardo DO Work Phone: [facility] 03-09-2025 16:22-0400 Body temperature 98.5 [degF] Dr. Tonio Fajardo DO Work Phone: [facility] 03-09-2025 16:22-0400 Heart rate 78 /min Dr. Tonio Fajardo DO Work Phone: [facility] 03-09-2025 16:22-0400 Inhaled oxygen flow rate 3 L/min Dr. Tonio Fajardo DO Work Phone: [facility] 03-09-2025 16:22-0400 Respiratory rate 20 /min Dr. Tonio Fajardo DO Work Phone: [facility] 03-09-2025 16:22-0400 SaO2% (BldA) [Mass fraction] 92 % Dr. Tonio Fajardo DO Work Phone: [facility] 03-09-2025 11:48-0400 Inhaled oxygen flow rate 2 L/min Dr. Tonio Fajardo DO Work Phone: [facility] 03-09-2025 11:48-0400 SaO2% (BldA) [Mass fraction] 79 % Dr. Tonio Fajardo DO Work Phone: [facility] 03-09-2025 11:11-0400 Body height 167.[address] Tonio Fajardo DO Work Phone: [facility] 03-09-2025 11:11-0400 Body weight 78.[address] Tonio Fajardo DO Work Phone: [facility] 03-09-2025 10:00-0400 Diastolic blood pressure 51 mm[Hg] Dr. Tonio Fajardo DO Work Phone: [facility] 03-09-2025 10:00-0400 Heart rate 97 /min Dr. Tonio Fajardo DO Work Phone: [facility] 03-09-2025 10:00-0400 Systolic blood pressure 129 mm[Hg] Dr. Tonio Fajardo DO Work Phone: [facility] 03-09-2025 05:00-0400 Body mass index (BMI) [Ratio] 28 kg/m2 Dr. Tonio Fajardo DO Work Phone: [facility] 03-04-2025 20:49-0400 Body temperature 98.6 [degF] Dr. Tonio Fajardo DO Work Phone: [facility] 03-04-2025 20:49-0400 Diastolic blood pressure 70 mm[Hg] Dr. Tonio Fajardo DO Work Phone: [facility] 03-04-2025 20:49-0400 Heart rate 114 /min Dr. Tonio Fajardo DO Work Phone: [facility] 03-04-2025 20:49-0400 Respiratory rate 20 /min Dr. Tonio Fajardo DO Work Phone: [facility] 03-04-2025 20:49-0400 SaO2% (BldA) [Mass fraction] 100 % Dr. Tonio Fajardo DO Work Phone: [facility] 03-04-2025 20:49-0400 Systolic blood pressure 153 mm[Hg] Dr. Tonio Fajardo DO Work Phone: [facility] 03-04-2025 20:00-0400 Inhaled oxygen flow rate 4 L/min Dr. Tonio Fajardo DO Work Phone: [facility] 03-04-2025 15:01-0400 Body height 167.[address] Tonio Fajardo DO Work Phone: [facility] 03-04-2025 15:01-0400 Body mass index (BMI) [Ratio] 25.9 kg/m2 Dr. Tonio Fajardo DO Work Phone: [facility] 03-04-2025 15:01-0400 Body weight 73.[address] Tonio Fajardo DO Work Phone: [facility] 11-06-2024 14:45-0400 Body height 167.[address] Tonio Fajardo DO Work Phone: [facility] 11-06-2024 14:45-0400 Body mass index (BMI) [Ratio] 28.5 kg/m2 Dr. Tonio Fajardo DO Work Phone: [facility] 11-06-2024 14:45-0400 Body temperature 98.5 [degF] Dr. Tonio Fajardo DO Work Phone: [facility] 11-06-2024 14:45-0400 Body weight 80.[address] Tonio Fajardo DO Work Phone: [facility] 11-06-2024 14:45-0400 Diastolic blood pressure 55 mm[Hg] Dr. Tonio Fajardo DO Work Phone: [facility] 11-06-2024 14:45-0400 Heart rate 55 /min Dr. Tonio Fajardo DO Work Phone: [facility] 11-06-2024 14:45-0400 Respiratory rate 18 /min Dr. Tonio Fajardo DO Work Phone: [facility] 11-06-2024 14:45-0400 SaO2% (BldA) [Mass fraction] 95 % Dr. Tonio Fajardo DO Work Phone: [facility] 11-06-2024 14:45-0400 Systolic blood pressure 116 mm[Hg] Dr. Tonio Fajardo DO Work Phone: [facility] 10-23-2024 09:06-0500 Body mass index (BMI) [Ratio] 28.5 kg/m2 Dr. Tonio Fajardo DO Work Phone: [facility] 10-23-2024 09:06-0500 Body temperature 97.4 [degF] Dr. Tonio Fajardo DO Work Phone: [facility] 10-23-2024 09:06-0500 Body weight 80.[address] Tonio Fajardo DO Work Phone: [facility] 10-23-2024 09:06-0500 Diastolic blood pressure 56 mm[Hg] Dr. Tonio Fajardo DO Work Phone: [facility] 10-23-2024 09:06-0500 Heart rate 52 /min Dr. Tonio Fajardo DO Work Phone: [facility] 10-23-2024 09:06-0500 Inhaled oxygen flow rate 3 L/min Dr. Tonio Fajardo DO Work Phone: [facility] 10-23-2024 09:06-0500 Respiratory rate 26 /min Dr. Tonio Fajardo DO Work Phone: [facility] 10-23-2024 09:06-0500 SaO2% (BldA) [Mass fraction] 97 % Dr. Tonio Fajardo DO Work Phone: [facility] 10-23-2024 09:06-0500 Systolic blood pressure 128 mm[Hg] Dr. Tonio Fajardo DO Work Phone: [facility] 10-16-2024 13:24-0500 Body height 167.[address] Tonio Fajardo DO Work Phone: [facility] 10-16-2024 13:24-0500 Body weight 78.[address] Tonio Fajardo DO Work Phone: [facility] 10-16-2024 13:24-0500 Heart rate 98 /min Dr. Tonio Fajardo DO Work Phone: [facility] 10-16-2024 13:24-0500 Inhaled oxygen flow rate 2 L/min Dr. Tonio Fajardo DO Work Phone: [facility] 10-16-2024 13:24-0500 SaO2% (BldA) [Mass fraction] 96 % Dr. Tonio Fajardo DO Work Phone: [facility] 09-25-2024 12:59-0500 Body mass index (BMI) [Ratio] 27.7 kg/m2 Dr. Tonio Fajardo DO Work Phone: [facility] 09-25-2024 12:59-0500 Body weight 80.[address] Tonio Fajardo DO Work Phone: [facility] 09-25-2024 12:59-0500 Diastolic blood pressure 75 mm[Hg] Dr. Tonio Fajardo DO Work Phone: [facility] 09-25-2024 12:59-0500 Heart rate 99 /min Dr. Tonio Fajardo DO Work Phone: [facility] 09-25-2024 12:59-0500 Respiratory rate 18 /min Dr. Tonio Fajardo DO Work Phone: [facility] 09-25-2024 12:59-0500 SaO2% (BldA) [Mass fraction] 90 % Dr. Tonio Fajardo DO Work Phone: [facility] 09-25-2024 12:59-0500 Systolic blood pressure 120 mm[Hg] Dr. Tonio Fajardo DO Work Phone: [facility] 11-12-2023 13:22-0400 Body height 170.[address] Tonio Fajardo Work Phone: [facility] 11-12-2023 13:22-0400 Body mass index (BMI) [Ratio] 28 kg/m2 Dr. Tonio Fajardo Work Phone: [facility] 11-12-2023 13:22-0400 Body temperature 97.9 [degF] Dr. Tonio Fajardo Work Phone: [facility] 11-12-2023 13:22-0400 Body weight 81.[address] Tonio Fajardo Work Phone: [facility] 11-12-2023 13:22-0400 Diastolic blood pressure 62 mm[Hg] Dr. Tonio Fajardo Work Phone: [facility] 11-12-2023 13:22-0400 Heart rate 103 /min Dr. Tonio Fajardo Work Phone: [facility] 11-12-2023 13:22-0400 Respiratory rate 18 /min Dr. Tonio Fajardo Work Phone: [facility] 11-12-2023 13:22-0400 SaO2% (BldA) [Mass fraction] 98 % Dr. Tonio Fajardo Work Phone: [facility] 11-12-2023 13:22-0400 Systolic blood pressure 97 mm[Hg] Dr. Tonio Fajardo Work Phone: [facility] 10-31-2023 12:05-0400 Body mass index (BMI) [Ratio] 27.3 kg/m2 Dr. Tonio Fajardo Work Phone: [facility] 10-31-2023 12:05-0400 Body temperature 98.2 [degF] Dr. Tonio Fajardo Work Phone: [facility] 10-31-2023 12:05-0400 Body weight 79.[address] Tonio Fajardo Work Phone: [facility] 10-31-2023 12:05-0400 Diastolic blood pressure 71 mm[Hg] Dr. Tonio Fajardo Work Phone: [facility] 10-31-2023 12:05-0400 Heart rate 78 /min Dr. Tonio Fajardo Work Phone: [facility] 10-31-2023 12:05-0400 Respiratory rate 18 /min Dr. Tonio Fajardo Work Phone: [facility] 10-31-2023 12:05-0400 SaO2% (BldA) [Mass fraction] 94 % Dr. Tonio Fajardo Work Phone: [facility] 10-31-2023 12:05-0400 Systolic blood pressure 119 mm[Hg] Dr. Tonio Fajardo Work Phone: [facility] 10-18-2023 14:51-0500 Body mass index (BMI) [Ratio] 28 kg/m2 Dr. Tonio Fajardo Work Phone: [facility] 10-18-2023 14:51-0500 Body temperature 98.9 [degF] Dr. Tonio Fajardo Work Phone: [facility] 10-18-2023 14:51-0500 Body weight 81.[address] Tonio Fajardo Work Phone: [facility] 10-18-2023 14:51-0500 Diastolic blood pressure 60 mm[Hg] Dr. Tonio Fajardo Work Phone: [facility] 10-18-2023 14:51-0500 Heart rate 98 /min Dr. Tonio Fajardo Work Phone: [facility] 10-18-2023 14:51-0500 Respiratory rate 18 /min Dr. Tonio Fajardo Work Phone: [facility] 10-18-2023 14:51-0500 SaO2% (BldA) [Mass fraction] 96 % Dr. Tonio Fajardo Work Phone: [facility] 10-18-2023 14:51-0500 Systolic blood pressure 114 mm[Hg] Dr. Tonio Fajardo Work Phone: [facility] 08-29-2023 12:52-0500 Body height 170.[address] Tonio Fajardo Work Phone: [facility] 08-29-2023 12:52-0500 Body mass index (BMI) [Ratio] 27.8 kg/m2 Dr. Tonio Fajardo Work Phone: [facility] 08-29-2023 12:52-0500 Body weight 80.[address] Tonio Fajardo Work Phone: [facility] 08-29-2023 12:52-0500 Diastolic blood pressure 71 mm[Hg] Dr. Tonio Fajardo Work Phone: [facility] 08-29-2023 12:52-0500 Heart rate 95 /min Dr. Tonio Fajardo Work Phone: [facility] 08-29-2023 12:52-0500 Respiratory rate 18 /min Dr. Tonio Fajardo Work Phone: [facility] 08-29-2023 12:52-0500 SaO2% (BldA) [Mass fraction] 97 % Dr. Tonio Fajardo Work Phone: [facility] 08-29-2023 12:52-0500 Systolic blood pressure 111 mm[Hg] Dr. Tonio Fajardo Work Phone: [facility] 07-25-2023 07:50-0500 Body height 170.[address] Tonio Fajardo Work Phone: [facility] 07-25-2023 07:50-0500 Body mass index (BMI) [Ratio] 29.4 kg/m2 Dr. Tonio Fajardo Work Phone: [facility] 07-25-2023 07:50-0500 Body temperature 96.2 [degF] Dr. Tonio Fajardo Work Phone: [facility] 07-25-2023 07:50-0500 Body weight 85.[address] Tonio Fajardo Work Phone: [facility] 07-25-2023 07:50-0500 Diastolic blood pressure 75 mm[Hg] Dr. Tonio Fajardo Work Phone: [facility] 07-25-2023 07:50-0500 Heart rate 53 /min Dr. Tonio Fajardo Work Phone: [facility] 07-25-2023 07:50-0500 Respiratory rate 20 /min Dr. Tonio Fajardo Work Phone: [facility] 07-25-2023 07:50-0500 SaO2% (BldA) [Mass fraction] 82 % Dr. Tonio Fajardo Work Phone: [facility] 07-25-2023 07:50-0500 Systolic blood pressure 119 mm[Hg] Dr. Tonio Fajardo Work Phone: [facility] 06-08-2023 14:33-0400 Body temperature 97.1 [degF] Dr. Tonio Fajardo Work Phone: [facility] 06-08-2023 14:33-0400 Diastolic blood pressure 67 mm[Hg] Dr. Tonio Fajardo Work Phone: [facility] 06-08-2023 14:33-0400 Heart rate 103 /min Dr. Tonio Fajardo Work Phone: [facility] 06-08-2023 14:33-0400 Respiratory rate 14 /min Dr. Tonio Fajardo Work Phone: [facility] 06-08-2023 14:33-0400 SaO2% (BldA) [Mass fraction] 93 % Dr. Tonio Fajardo Work Phone: [facility] 06-08-2023 14:33-0400 Systolic blood pressure 133 mm[Hg] Dr. Tonio Fajardo Work Phone: [facility] 06-08-2023 12:20-0400 Body height 170.[address] Tonio Fajardo Work Phone: [facility] 06-08-2023 12:20-0400 Body mass index (BMI) [Ratio] 29.3 kg/m2 Dr. Tonio Fajardo Work Phone: [facility] 06-08-2023 12:20-0400 Body weight [address] Tonio Fajardo Work Phone: [facility] 05-02-2023 13:50-0400 Diastolic blood pressure 63 mm[Hg] Dr. Tonio Fajardo Work Phone: [facility] 05-02-2023 13:50-0400 Heart rate 97 /min Dr. Tonio Fajardo Work Phone: [facility] 05-02-2023 13:50-0400 Respiratory rate 18 /min Dr. Tonio Fajardo Work Phone: [facility] 05-02-2023 13:50-0400 Systolic blood pressure 113 mm[Hg] Dr. Tonio Fajardo Work Phone: [facility] 04-25-2023 14:04-0400 Body temperature 97.9 [degF] Dr. Tonio Fajardo Work Phone: [facility] 04-18-2023 13:24-0400 Body temperature 97.5 [degF] Dr. Tonio Fajardo Work Phone: [facility] 04-18-2023 13:24-0400 Diastolic blood pressure 77 mm[Hg] Dr. Tonio Fajardo Work Phone: [facility] 04-18-2023 13:24-0400 Heart rate 109 /min Dr. Tonio Fajardo Work Phone: [facility] 04-18-2023 13:24-0400 Respiratory rate 16 /min Dr. Tonio Fajardo Work Phone: [facility] 04-18-2023 13:24-0400 Systolic blood pressure 141 mm[Hg] Dr. Tonio Fajardo Work Phone: [facility] 04-17-2023 11:08-0400 Body height 167.[address] Tonio Fajardo Work Phone: [facility] 04-17-2023 11:08-0400 Body mass index (BMI) [Ratio] 30.2 kg/m2 Dr. Tonio Fajardo Work Phone: [facility] 04-17-2023 11:08-0400 Body temperature 98.6 [degF] Dr. Tonio Fajardo Work Phone: [facility] 04-17-2023 11:08-0400 Body weight 84.[address] Tonio Fajardo Work Phone: [facility] 04-17-2023 11:08-0400 Diastolic blood pressure 87 mm[Hg] Dr. Tonio Fajardo Work Phone: [facility] 04-17-2023 11:08-0400 Heart rate 87 /min Dr. Tonio Fajardo Work Phone: [facility] 04-17-2023 11:08-0400 Respiratory rate 18 /min Dr. Tonio Fajardo Work Phone: [facility] 04-17-2023 11:08-0400 SaO2% (BldA) [Mass fraction] 95 % Dr. Tonio Fajardo Work Phone: [facility] 04-17-2023 11:08-0400 Systolic blood pressure 130 mm[Hg] Dr. Tonio Fajardo Work Phone: [facility] 04-02-2023 11:24-0400 Body temperature 98.6 [degF] Dr. Tonio Fajardo Work Phone: [facility] 04-02-2023 11:24-0400 Diastolic blood pressure 55 mm[Hg] Dr. Tonio Fajardo Work Phone: [facility] 04-02-2023 11:24-0400 Heart rate 101 /min Dr. Tonio Fajardo Work Phone: [facility] 04-02-2023 11:24-0400 Respiratory rate 20 /min Dr. Tonio Fajardo Work Phone: [facility] 04-02-2023 11:24-0400 Systolic blood pressure 114 mm[Hg] Dr. Tonio Fajardo Work Phone: [facility] 03-19-2023 10:28-0400 Body temperature 98.2 [degF] Dr. Tonio Fajardo Work Phone: [facility] 03-19-2023 10:28-0400 Diastolic blood pressure 59 mm[Hg] Dr. Tonio Fajardo Work Phone: [facility] 03-19-2023 10:28-0400 Heart rate 106 /min Dr. Tonio Fajardo Work Phone: [facility] 03-19-2023 10:28-0400 Respiratory rate 20 /min Dr. Tonio Fajardo Work Phone: [facility] 03-19-2023 10:28-0400 Systolic blood pressure 120 mm[Hg] Dr. Tonio Fajardo Work Phone: [facility] 02-05-2023 13:10-0400 Body temperature 97.6 [degF] Dr. Tonio Fajardo Work Phone: [facility] 02-05-2023 13:10-0400 Diastolic blood pressure 76 mm[Hg] Dr. Tonio Fajardo Work Phone: [facility] 02-05-2023 13:10-0400 Heart rate 109 /min Dr. Tonio Fajardo Work Phone: [facility] 02-05-2023 13:10-0400 Respiratory rate 18 /min Dr. Tonio Fajardo Work Phone: [facility] 02-05-2023 13:10-0400 Systolic blood pressure 160 mm[Hg] Dr. Tonio Fajardo Work Phone: [facility] 01-08-2023 13:37-0400 Body temperature 96.7 [degF] Dr. Tonio Fajardo Work Phone: [facility] 01-08-2023 13:37-0400 Diastolic blood pressure 46 mm[Hg] Dr. Tonio Fajardo Work Phone: [facility] 01-08-2023 13:37-0400 Heart rate 111 /min Dr. Tonio Fajardo Work Phone: [facility] 01-08-2023 13:37-0400 Systolic blood pressure 121 mm[Hg] Dr. Tonio Fajardo Work Phone: [facility] 12-31-2022 00:58-0400 Body temperature 98.7 [degF] Dr. Tonio Fajardo Work Phone: [facility] 12-31-2022 00:58-0400 Diastolic blood pressure 59 mm[Hg] Dr. Tonio Fajardo Work Phone: [facility] 12-31-2022 00:58-0400 Heart rate 111 /min Dr. Tonio Fajardo Work Phone: [facility] 12-31-2022 00:58-0400 Respiratory rate 26 /min Dr. Tonio Fajardo Work Phone: [facility] 12-31-2022 00:58-0400 SaO2% (BldA) [Mass fraction] 93 % Dr. Tonio Fajardo Work Phone: [facility] 12-31-2022 00:58-0400 Systolic blood pressure 131 mm[Hg] Dr. Tonio Fajardo Work Phone: [facility] 12-30-2022 22:36-0400 Body height 167.[address] Tonio Fajardo Work Phone: [facility] 12-30-2022 22:36-0400 Body mass index (BMI) [Ratio] 30.5 kg/m2 Dr. Tonio Fajardo Work Phone: [facility] 12-30-2022 22:36-0400 Body weight 85.[address] Tonio Fajardo Work Phone: [facility] 12-25-2022 14:53-0400 Body temperature 97.7 [degF] Dr. Tonio Fajardo Work Phone: [facility] 12-25-2022 14:53-0400 Diastolic blood pressure 51 mm[Hg] Dr. Tonio Fajardo Work Phone: [facility] 12-25-2022 14:53-0400 Heart rate 110 /min Dr. Tonio Fajardo Work Phone: [facility] 12-25-2022 14:53-0400 Respiratory rate 18 /min Dr. Tonio Fajardo Work Phone: [facility] 12-25-2022 14:53-0400 Systolic blood pressure 101 mm[Hg] Dr. Tonio Fajardo Work Phone: [facility] 12-12-2022 10:49-0400 Body height 167.[address] Tonio Fajardo Work Phone: [facility] 12-12-2022 10:49-0400 Body mass index (BMI) [Ratio] 29.7 kg/m2 Dr. Tonio Fajardo Work Phone: [facility] 12-12-2022 10:49-0400 Body temperature 97.4 [degF] Dr. Tonio Fajardo Work Phone: [facility] 12-12-2022 10:49-0400 Body weight 83.[address] Tonio Fajardo Work Phone: [facility] 12-12-2022 10:49-0400 Diastolic blood pressure 71 mm[Hg] Dr. Tonio Fajardo Work Phone: [facility] 12-12-2022 10:49-0400 Heart rate 114 /min Dr. Tonio Fajardo Work Phone: [facility] 12-12-2022 10:49-0400 Respiratory rate 18 /min Dr. Tonio Fajardo Work Phone: [facility] 12-12-2022 10:49-0400 SaO2% (BldA) [Mass fraction] 96 % Dr. Tonio Fajardo Work Phone: [facility] 12-12-2022 10:49-0400 Systolic blood pressure 135 mm[Hg] Dr. Tonio Fajardo Work Phone: [facility] 12-11-2022 13:12-0400 Body temperature 96.2 [degF] Dr. Tonio Fajardo Work Phone: [facility] 12-11-2022 13:12-0400 Diastolic blood pressure 87 mm[Hg] Dr. Tonio Fajardo Work Phone: [facility] 12-11-2022 13:12-0400 Heart rate 107 /min Dr. Tonio Fajardo Work Phone: [facility] 12-11-2022 13:12-0400 Respiratory rate 20 /min Dr. Tonio Fajardo Work Phone: [facility] 12-11-2022 13:12-0400 Systolic blood pressure 110 mm[Hg] Dr. Tonio Fajardo Work Phone: [facility] 11-16-2022 13:13-0400 Diastolic blood pressure 49 mm[Hg] Dr. Tonio Fajardo Work Phone: [facility] 11-16-2022 13:13-0400 Heart rate 82 /min Dr. Tonio Fajardo Work Phone: [facility] 11-16-2022 13:13-0400 Respiratory rate 16 /min Dr. Tonio Fajardo Work Phone: [facility] 11-16-2022 13:13-0400 Systolic blood pressure 125 mm[Hg] Dr. Tonio Fajardo Work Phone: [facility] 11-08-2022 09:52-0400 Body temperature 97.3 [degF] Dr. Tonio Fajardo Work Phone: [facility] 10-16-2022 14:07-0500 Body height 167.[address] Tonio Fajardo Work Phone: [facility] 10-16-2022 14:05-0500 Body mass index (BMI) [Ratio] 29.8 kg/m2 Dr. Tonio Fajardo Work Phone: [facility] 10-16-2022 14:05-0500 Body temperature 97.6 [degF] Dr. Tonio Fajardo Work Phone: [facility] 10-16-2022 14:05-0500 Body weight 83.[address] Tonio Fajardo Work Phone: [facility] 10-16-2022 14:05-0500 Diastolic blood pressure 89 mm[Hg] Dr. Tonio Fajardo Work Phone: [facility] 10-16-2022 14:05-0500 Heart rate 78 /min Dr. Tonio Fajardo Work Phone: [facility] 10-16-2022 14:05-0500 Respiratory rate 18 /min Dr. Tonio Fajardo Work Phone: [facility] 10-16-2022 14:05-0500 SaO2% (BldA) [Mass fraction] 94 % Dr. Tonio Fajardo Work Phone: [facility] 10-16-2022 14:05-0500 Systolic blood pressure 145 mm[Hg] Dr. Tonio Fajardo Work Phone: [facility] 10-16-2022 13:24-0500 Body mass index (BMI) [Ratio] 29.8 kg/m2 Dr. Tonio Fajardo Work Phone: [facility] 10-16-2022 13:24-0500 Body temperature 98.6 [degF] Dr. Tonio Fajardo Work Phone: [facility] 10-16-2022 13:24-0500 Body weight 83.[address] Tonio Fajardo Work Phone: [facility] 10-16-2022 13:24-0500 Diastolic blood pressure 74 mm[Hg] Dr. Tonio Fajardo Work Phone: [facility] 10-16-2022 13:24-0500 Heart rate 75 /min Dr. Tonio Fajardo Work Phone: [facility] 10-16-2022 13:24-0500 Respiratory rate 18 /min Dr. Tonio Fajardo Work Phone: [facility] 10-16-2022 13:24-0500 SaO2% (BldA) [Mass fraction] 94 % Dr. Tonio Fajardo Work Phone: [facility] 10-16-2022 13:24-0500 Systolic blood pressure 146 mm[Hg] Dr. Tonio Fajardo Work Phone: [facility] 10-09-2022 12:59-0500 Body temperature 97.5 [degF] Dr. Tonio Fajardo Work Phone: [facility] 10-09-2022 12:59-0500 Diastolic blood pressure 63 mm[Hg] Dr. Tonio Fajardo Work Phone: [facility] 10-09-2022 12:59-0500 Heart rate 89 /min Dr. Tonio Fajardo Work Phone: [facility] 10-09-2022 12:59-0500 Respiratory rate 22 /min Dr. Tonio Fajardo Work Phone: [facility] 10-09-2022 12:59-0500 Systolic blood pressure 148 mm[Hg] Dr. Tonio Fajardo Work Phone: [facility] 09-18-2022 09:49-0500 Body temperature 97.3 [degF] Dr. Tonio Fajardo Work Phone: [facility] 09-18-2022 09:49-0500 Diastolic blood pressure 44 mm[Hg] Dr. Tonio Fajardo Work Phone: [facility] 09-18-2022 09:49-0500 Heart rate 66 /min Dr. Tonio Fajardo Work Phone: [facility] 09-18-2022 09:49-0500 Respiratory rate 18 /min Dr. Tonio Fajardo Work Phone: [facility] 09-18-2022 09:49-0500 Systolic blood pressure 138 mm[Hg] Dr. Tonio Fajardo Work Phone: [facility] 08-15-2022 13:56-0500 Body temperature 97.1 [degF] Dr. Tonio Fajardo Work Phone: [facility] 08-15-2022 13:56-0500 Diastolic blood pressure 43 mm[Hg] Dr. Tonio Fajardo Work Phone: [facility] 08-15-2022 13:56-0500 Heart rate 73 /min Dr. Tonio Fajardo Work Phone: [facility] 08-15-2022 13:56-0500 Respiratory rate 16 /min Dr. Tonio Fajardo Work Phone: [facility] 08-15-2022 13:56-0500 Systolic blood pressure 139 mm[Hg] Dr. Tonio Fajardo Work Phone: [facility] 08-08-2022 14:00-0500 Body height 167.[address] Tonio Fajardo Work Phone: [facility] 08-08-2022 13:57-0500 Body mass index (BMI) [Ratio] 29.5 kg/m2 Dr. Tonio Fajardo Work Phone: [facility] 08-08-2022 13:57-0500 Body temperature 97.5 [degF] Dr. Tonio Fajardo Work Phone: [facility] 08-08-2022 13:57-0500 Body weight 83.[address] Tonio Fajardo Work Phone: [facility] 08-08-2022 13:57-0500 Diastolic blood pressure 54 mm[Hg] Dr. Tonio Fajardo Work Phone: [facility] 08-08-2022 13:57-0500 Heart rate 67 /min Dr. Tonio Fajardo Work Phone: [facility] 08-08-2022 13:57-0500 Respiratory rate 16 /min Dr. Tonio Fajardo Work Phone: [facility] 08-08-2022 13:57-0500 SaO2% (BldA) [Mass fraction] 94 % Dr. Tonio Fajardo Work Phone: [facility] 08-08-2022 13:57-0500 Systolic blood pressure 109 mm[Hg] Dr. Tonio Fajardo Work Phone: [facility] 07-19-2022 14:30-0500 Body height 167.[address] Tonio Fajardo Work Phone: [facility] Work Phone: 07-19-2022 14:30-0500 Body mass index (BMI) [Ratio] 29 kg/m2 Dr. Tonio Fajardo Work Phone: [facility] 07-19-2022 14:30-0500 Body weight 81.[address] Tonio Fajardo Work Phone: [facility] 07-19-2022 14:30-0500 Diastolic blood pressure 62 mm[Hg] Dr. Tonio Fajardo Work Phone: [facility] 07-19-2022 14:30-0500 Heart rate 66 /min Dr. Tonio Fajardo Work Phone: [facility] 07-19-2022 14:30-0500 Respiratory rate 24 /min Dr. Tonio Fajardo Work Phone: [facility] 07-19-2022 14:30-0500 SaO2% (BldA) [Mass fraction] 97 % Dr. Tonio Fajardo Work Phone: [facility] 07-19-2022 14:30-0500 Systolic blood pressure 117 mm[Hg] Dr. Tonio Fajardo Work Phone: [facility] 07-18-2022 13:29-0500 Body temperature 97.1 [degF] Dr. Tonio Fajardo Work Phone: [facility] 07-18-2022 13:29-0500 Diastolic blood pressure 57 mm[Hg] Dr. Tonio Fajardo Work Phone: [facility] 07-18-2022 13:29-0500 Heart rate 83 /min Dr. Tonio Fajardo Work Phone: [facility] 07-18-2022 13:29-0500 Respiratory rate 16 /min Dr. Tonio Fajardo Work Phone: [facility] 07-18-2022 13:29-0500 Systolic blood pressure 117 mm[Hg] Dr. Tonio Fajardo Work Phone: [facility] 07-17-2022 11:23-0500 Body temperature 98.3 [degF] Dr. Tonio Fajardo Work Phone: [facility] 07-17-2022 11:23-0500 Diastolic blood pressure 58 mm[Hg] Dr. Tonio Fajardo Work Phone: [facility] 07-17-2022 11:23-0500 Heart rate 63 /min Dr. Tonio Fajardo Work Phone: [facility] 07-17-2022 11:23-0500 Respiratory rate 16 /min Dr. Tonio Fajardo Work Phone: [facility] 07-17-2022 11:23-0500 SaO2% (BldA) [Mass fraction] 97 % Dr. Tonio Fajardo Work Phone: [facility] 07-17-2022 11:23-0500 Systolic blood pressure 107 mm[Hg] Dr. Tonio Fajardo Work Phone: [facility] 07-05-2022 14:00-0500 Body mass index (BMI) [Ratio] 29 kg/m2 Dr. Tonio Fajardo Work Phone: [facility] 07-05-2022 14:00-0500 Body temperature 96.9 [degF] Dr. Tonio Fajardo Work Phone: [facility] 07-05-2022 14:00-0500 Body weight 81.[address] Tonio Fajardo Work Phone: [facility] 07-05-2022 14:00-0500 Diastolic blood pressure 63 mm[Hg] Dr. Tonio Fajardo Work Phone: [facility] 07-05-2022 14:00-0500 Heart rate 66 /min Dr. Tonio Fajardo Work Phone: [facility] 07-05-2022 14:00-0500 Respiratory rate 16 /min Dr. Tonio Fajardo Work Phone: [facility] 07-05-2022 14:00-0500 SaO2% (BldA) [Mass fraction] 97 % Dr. Tonio Fajardo Work Phone: [facility] 07-05-2022 14:00-0500 Systolic blood pressure 156 mm[Hg] Dr. Tonio Fajardo Work Phone: [facility] 06-28-2022 14:11-0500 Body mass index (BMI) [Ratio] 29.6 kg/m2 Dr. Tonio Fajardo Work Phone: [facility] 06-28-2022 14:11-0500 Body temperature 97.1 [degF] Dr. Tonio Fajardo Work Phone: [facility] 06-28-2022 14:11-0500 Body weight 83.[address] Tonio Fajardo Work Phone: [facility] 06-28-2022 14:11-0500 Diastolic blood pressure 58 mm[Hg] Dr. Tonio Fajardo Work Phone: [facility] 06-28-2022 14:11-0500 Heart rate 77 /min Dr. oTnio Fajardo Work Phone: [facility] 06-28-2022 14:11-0500 Respiratory rate 16 /min Dr. Tonio Fajardo Work Phone: [facility] 06-28-2022 14:11-0500 SaO2% (BldA) [Mass fraction] 89 % Dr. Tonio Fajardo Work Phone: [facility] 06-28-2022 14:11-0500 Systolic blood pressure 124 mm[Hg] Dr. Tonio Fajardo Work Phone: [facility] 06-21-2022 13:57-0400 Body mass index (BMI) [Ratio] 29.8 kg/m2 Dr. Tonio Fajardo Work Phone: [facility] 06-21-2022 13:57-0400 Body temperature 97 [degF] Dr. Tonio Fajardo Work Phone: [facility] 06-21-2022 13:57-0400 Body weight 83.[address] Tonio Fajardo Work Phone: [facility] 06-21-2022 13:57-0400 Diastolic blood pressure 88 mm[Hg] Dr. Tonio Fajardo Work Phone: [facility] 06-21-2022 13:57-0400 Heart rate 70 /min Dr. Tonio Fajardo Work Phone: [facility] 06-21-2022 13:57-0400 Respiratory rate 18 /min Dr. Tonio Fajardo Work Phone: [facility] 06-21-2022 13:57-0400 SaO2% (BldA) [Mass fraction] 94 % Dr. Tonio Fajardo Work Phone: [facility] 06-21-2022 13:57-0400 Systolic blood pressure 139 mm[Hg] Dr. Tonio Fajardo Work Phone: [facility] 06-14-2022 13:55-0400 Body height 167.[address] Tonio Fajardo Work Phone: [facility] Work Phone: 06-14-2022 13:53-0400 Body mass index (BMI) [Ratio] 29.5 kg/m2 Dr. Tonio Fajardo Work Phone: [facility] 06-14-2022 13:53-0400 Body temperature 97 [degF] Dr. Tonio Fajardo Work Phone: [facility] 06-14-2022 13:53-0400 Body weight 83.[address] Tonio Fajardo Work Phone: [facility] 06-14-2022 13:53-0400 Diastolic blood pressure 61 mm[Hg] Dr. Tonio Fajardo Work Phone: [facility] 06-14-2022 13:53-0400 Heart rate 66 /min Dr. Tonio Fajardo Work Phone: [facility] 06-14-2022 13:53-0400 Respiratory rate 16 /min Dr. Tonio Fajardo Work Phone: [facility] 06-14-2022 13:53-0400 SaO2% (BldA) [Mass fraction] 94 % Dr. Tonio Fajardo Work Phone: [facility] 06-14-2022 13:53-0400 Systolic blood pressure 137 mm[Hg] Dr. Tonio Fajardo Work Phone: [facility] 06-12-2022 10:32-0400 Body temperature 97.3 [degF] Dr. Tonio Fajardo Work Phone: [facility] 06-12-2022 10:32-0400 Diastolic blood pressure 63 mm[Hg] Dr. Tonio Fajardo Work Phone: [facility] 06-12-2022 10:32-0400 Heart rate 59 /min Dr. Tonio Fajardo Work Phone: [facility] 06-12-2022 10:32-0400 Respiratory rate 18 /min Dr. Tonio Fajardo Work Phone: [facility] 06-12-2022 10:32-0400 Systolic blood pressure 149 mm[Hg] Dr. Tonio Fajardo Work Phone: [facility] 05-30-2022 14:08-0400 Body height 167.[address] Tonio Fajardo Work Phone: [facility] Work Phone: 05-30-2022 14:05-0400 Body mass index (BMI) [Ratio] 29.7 kg/m2 Dr. Tonio Fajardo Work Phone: [facility] 05-30-2022 14:05-0400 Body temperature 97 [degF] Dr. Tonio Fajardo Work Phone: [facility] 05-30-2022 14:05-0400 Body weight 83.[address] Tonio Fajardo Work Phone: [facility] 05-30-2022 14:05-0400 Diastolic blood pressure 64 mm[Hg] Dr. Tonio Fajardo Work Phone: [facility] 05-30-2022 14:05-0400 Heart rate 65 /min Dr. Tonio Fajardo Work Phone: [facility] 05-30-2022 14:05-0400 Respiratory rate 18 /min Dr. Tonio Fajardo Work Phone: [facility] 05-30-2022 14:05-0400 SaO2% (BldA) [Mass fraction] 95 % Dr. Tonio Fajardo Work Phone: [facility] 05-30-2022 14:05-0400 Systolic blood pressure 145 mm[Hg] Dr. Tonio Fajardo Work Phone: [facility] 05-29-2022 14:48-0400 Body temperature 97.6 [degF] Dr. Tonio Fajardo Work Phone: [facility] Work Phone: 05-29-2022 14:48-0400 Diastolic blood pressure 51 mm[Hg] Dr. Tonio Fajardo Work Phone: [facility] Work Phone: 05-29-2022 14:48-0400 Heart rate 75 /min Dr. Tonio Fajardo Work Phone: [facility] Work Phone: 05-29-2022 14:48-0400 Systolic blood pressure 158 mm[Hg] Dr. Tonio Fajardo Work Phone: [facility] Work Phone: 05-24-2022 14:31-0400 Body height 167.[address] Tonio Fajardo Work Phone: [facility] Work Phone: 05-24-2022 14:22-0400 Body mass index (BMI) [Ratio] 29.7 kg/m2 Dr. Tonio Fajardo Work Phone: [facility] 05-24-2022 14:22-0400 Body temperature 98.2 [degF] Dr. Tonio Fajardo Work Phone: [facility] 05-24-2022 14:22-0400 Body weight 83.[address] Tonio Fajardo Work Phone: [facility] 05-24-2022 14:22-0400 Diastolic blood pressure 74 mm[Hg] Dr. Tonio Fajardo Work Phone: [facility] 05-24-2022 14:22-0400 Heart rate 74 /min Dr. Tonio Fajardo Work Phone: [facility] 05-24-2022 14:22-0400 Respiratory rate 15 /min Dr. Tonio Fajardo Work Phone: [facility] 05-24-2022 14:22-0400 SaO2% (BldA) [Mass fraction] 96 % Dr. Tonio Fajardo Work Phone: [facility] 05-24-2022 14:22-0400 Systolic blood pressure 135 mm[Hg] Dr. Tonio Fajardo Work Phone: [facility] 05-24-2022 13:26-0400 Body temperature 96.7 [degF] Dr. Tonio Fajardo Work Phone: [facility] Work Phone: 05-24-2022 13:26-0400 Diastolic blood pressure 57 mm[Hg] Dr. Tonio Fajardo Work Phone: [facility] Work Phone: 05-24-2022 13:26-0400 Heart rate 81 /min Dr. Tonio Fajardo Work Phone: [facility] Work Phone: 05-24-2022 13:26-0400 Respiratory rate 18 /min Dr. Tonio Fajardo Work Phone: [facility] Work Phone: 05-24-2022 13:26-0400 Systolic blood pressure 141 mm[Hg] Dr. Tonio Fajardo Work Phone: [facility] Work Phone: 05-17-2022 15:07-0400 Body temperature 97.5 [degF] Dr. Tonio Fajardo Work Phone: [facility] Work Phone: 05-17-2022 15:07-0400 Diastolic blood pressure 63 mm[Hg] Dr. Tonio Fajardo Work Phone: [facility] Work Phone: 05-17-2022 15:07-0400 Heart rate 71 /min Dr. Tonio Fajardo Work Phone: [facility] Work Phone: 05-17-2022 15:07-0400 Respiratory rate 20 /min Dr. Tonio Fajardo Work Phone: [facility] Work Phone: 05-17-2022 15:07-0400 Systolic blood pressure 142 mm[Hg] Dr. Tonio Fajardo Work Phone: [facility] Work Phone: 05-11-2022 16:01-0400 Body height 167.[address] Tonio Fajardo Work Phone: [facility] Work Phone: 05-11-2022 15:54-0400 Body mass index (BMI) [Ratio] 29.4 kg/m2 Dr. Tonio Fajardo Work Phone: [facility] Work Phone: 05-11-2022 15:54-0400 Body temperature 98.4 [degF] Dr. Tonio Fajardo Work Phone: [facility] Work Phone: 05-11-2022 15:54-0400 Body weight 82.[address] Tonio Fajardo Work Phone: [facility] Work Phone: 05-11-2022 15:54-0400 Diastolic blood pressure 67 mm[Hg] Dr. Tonio Fajardo Work Phone: [facility] Work Phone: 05-11-2022 15:54-0400 Heart rate 63 /min Dr. Tonio Fajardo Work Phone: [facility] Work Phone: 05-11-2022 15:54-0400 Respiratory rate 16 /min Dr. Tonio Fajardo Work Phone: [facility] Work Phone: 05-11-2022 15:54-0400 SaO2% (BldA) [Mass fraction] 96 % Dr. Tonio Fajardo Work Phone: [facility] Work Phone: 05-11-2022 15:54-0400 Systolic blood pressure 100 mm[Hg] Dr. Tonio Fajardo Work Phone: [facility] Work Phone: 05-11-2022 08:32-0400 Body mass index (BMI) [Ratio] 29.4 kg/m2 Dr. Tonio Fajardo Work Phone: [facility] Work Phone: 05-11-2022 08:32-0400 Body temperature 97.2 [degF] Dr. Tonio Fajardo Work Phone: [facility] Work Phone: 05-11-2022 08:32-0400 Body weight 82.[address] Tonio Fajardo Work Phone: [facility] Work Phone: 05-11-2022 08:32-0400 Diastolic blood pressure 62 mm[Hg] Dr. Tonio Fajardo Work Phone: [facility] Work Phone: 05-11-2022 08:32-0400 Heart rate 73 /min Dr. Tonio Fajardo Work Phone: [facility] Work Phone: 05-11-2022 08:32-0400 Respiratory rate 20 /min Dr. Tonio Fajardo Work Phone: [facility] Work Phone: 05-11-2022 08:32-0400 SaO2% (BldA) [Mass fraction] 96 % Dr. Tonio Fajardo Work Phone: [facility] Work Phone: 05-11-2022 08:32-0400 Systolic blood pressure 145 mm[Hg] Dr. Tonio Fajardo Work Phone: [facility] Work Phone: 04-28-2022 11:40-0400 Body temperature 97.4 [degF] Dr. Tonio Fajardo Work Phone: [facility] Work Phone: 04-28-2022 11:40-0400 Diastolic blood pressure 46 mm[Hg] Dr. Tonio Fajardo Work Phone: [facility] Work Phone: 04-28-2022 11:40-0400 Heart rate 66 /min Dr. Tonio Fajardo Work Phone: [facility] Work Phone: 04-28-2022 11:40-0400 Respiratory rate 20 /min Dr. Tonio Fajardo Work Phone: [facility] Work Phone: 04-28-2022 11:40-0400 SaO2% (BldA) [Mass fraction] 96 % Dr. Tonio Fajardo Work Phone: [facility] Work Phone: 04-28-2022 11:40-0400 Systolic blood pressure 138 mm[Hg] Dr. Tonio Fajardo Work Phone: [facility] Work Phone: 04-28-2022 09:44-0400 Inhaled oxygen flow rate 2 L/min Dr. Tonio Fajardo Work Phone: [facility] Work Phone: 04-28-2022 08:15-0400 Body height 167.[address] Tonio Fajardo Work Phone: [facility] Work Phone: 04-28-2022 08:15-0400 Body mass index (BMI) [Ratio] 28 kg/m2 Dr. Tonio Fajardo Work Phone: [facility] Work Phone: 04-28-2022 08:15-0400 Body weight 78.[address] Tonio Fajardo Work Phone: [facility] Work Phone: 04-26-2022 13:47-0400 Body temperature 97 [degF] Dr. Tonio Fajardo Work Phone: [facility] Work Phone: 04-26-2022 13:47-0400 Diastolic blood pressure 33 mm[Hg] Dr. Tonio Fajardo Work Phone: [facility] Work Phone: 04-26-2022 13:47-0400 Heart rate 80 /min Dr. Tonio Fajardo Work Phone: [facility] Work Phone: 04-26-2022 13:47-0400 Respiratory rate 18 /min Dr. Tonio Fajardo Work Phone: [facility] Work Phone: 04-26-2022 13:47-0400 Systolic blood pressure 118 mm[Hg] Dr. Tonio Fajardo Work Phone: [facility] Work Phone: 04-14-2022 11:11-0400 Body height 167.[address] Tonio Fajardo Work Phone: [facility] Work Phone: 04-14-2022 11:11-0400 Body mass index (BMI) [Ratio] 30.7 kg/m2 Dr. Tonio Fajardo Work Phone: [facility] Work Phone: 04-14-2022 11:11-0400 Body temperature 95.8 [degF] Dr. Tonio Fajardo Work Phone: [facility] Work Phone: 04-14-2022 11:11-0400 Body weight 86.[address] Tonio Fajardo Work Phone: [facility] Work Phone: 04-14-2022 11:11-0400 Diastolic blood pressure 68 mm[Hg] Dr. Tonio Fajardo Work Phone: [facility] Work Phone: 04-14-2022 11:11-0400 Heart rate 34 /min Dr. Tonio Fajardo Work Phone: [facility] Work Phone: 04-14-2022 11:11-0400 Respiratory rate 16 /min Dr. Tonio Fajardo Work Phone: [facility] Work Phone: 04-14-2022 11:11-0400 SaO2% (BldA) [Mass fraction] 91 % Dr. Tonio Fajardo Work Phone: [facility] Work Phone: 04-14-2022 11:11-0400 Systolic blood pressure 163 mm[Hg] Dr. Tonio Fajardo Work Phone: [facility] Work Phone: 04-14-2022 10:36-0400 Body temperature 96.7 [degF] Dr. Tonio Fajardo Work Phone: [facility] Work Phone: 04-14-2022 10:36-0400 Diastolic blood pressure 71 mm[Hg] Dr. Tonio Fajardo Work Phone: [facility] Work Phone: 04-14-2022 10:36-0400 Heart rate 64 /min Dr. Tonio Fajardo Work Phone: [facility] Work Phone: 04-14-2022 10:36-0400 Respiratory rate 23 /min Dr. Tonio Fajardo Work Phone: [facility] Work Phone: 04-14-2022 10:36-0400 SaO2% (BldA) [Mass fraction] 94 % Dr. Tonio Fajardo Work Phone: [facility] Work Phone: 04-14-2022 10:36-0400 Systolic blood pressure 153 mm[Hg] Dr. Tonio Fajardo Work Phone: [facility] Work Phone: 04-14-2022 08:24-0400 Body mass index (BMI) [Ratio] 30.2 kg/m2 Dr. Tonio Fajardo Work Phone: [facility] Work Phone: 04-14-2022 08:24-0400 Body weight 85.[address] Tonio Fajardo Work Phone: [facility] Work Phone: 04-12-2022 13:50-0400 Body temperature 97.8 [degF] Dr. Tonio Fajardo Work Phone: [facility] Work Phone: 04-12-2022 13:50-0400 Diastolic blood pressure 74 mm[Hg] Dr. Tonio Fajardo Work Phone: [facility] Work Phone: 04-12-2022 13:50-0400 Heart rate 69 /min Dr. Tonio Fajardo Work Phone: [facility] Work Phone: 04-12-2022 13:50-0400 Respiratory rate 18 /min Dr. Tonio Fajardo Work Phone: [facility] Work Phone: 04-12-2022 13:50-0400 Systolic blood pressure 107 mm[Hg] Dr. Tonio Fajardo Work Phone: [facility] Work Phone: 04-05-2022 13:34-0400 Body temperature 101.61 [degF] Jessie Praisler-Wood [employer] PROGRAM COORDINATOR.[employer] Work Phone: [facility] 04-05-2022 13:34-0400 Body weight 87.09 kg Jessie Praisler-Wood BEREAVEMENT PROGRAM COORDINATOR.[employer] Work Phone: [facility] 04-05-2022 13:34-0400 Diastolic blood pressure 76 mm[Hg] Jessie Praisler-Wood BEREAVEMENT PROGRAM COORDINATOR.[employer] Work Phone: [facility] 04-05-2022 13:34-0400 Heart rate 76 /min Jessie Praisler-Wood BEREAVEMENT PROGRAM COORDINATOR.[employer] Work Phone: [facility] 04-05-2022 13:34-0400 Respiratory rate 16 /min Jessie Praisler-Wood BEREAVEMENT PROGRAM COORDINATOR.[employer] Work Phone: [facility] 04-05-2022 13:34-0400 SaO2% (BldA) [Mass fraction] 94 % Jessie Praisler-Wood BEREAVEMENT PROGRAM COORDINATOR.[employer] Work Phone: [facility] 04-05-2022 13:34-0400 Systolic blood pressure 122 mm[Hg] Jessie Praisler-Wood BEREAVEMENT PROGRAM COORDINATOR.[employer] Work Phone: [facility] 03-01-2022 13:16-0400 Body temperature 97.6 [degF] Dr. Tonio Fajardo Work Phone: [facility] Work Phone: 03-01-2022 13:16-0400 Diastolic blood pressure 73 mm[Hg] Dr. Tonio Fajardo Work Phone: [facility] Work Phone: 03-01-2022 13:16-0400 Heart rate 70 /min Dr. Tonio Fajardo Work Phone: [facility] Work Phone: 03-01-2022 13:16-0400 Respiratory rate 18 /min Dr. Tonio Fajardo Work Phone: [facility] Work Phone: 03-01-2022 13:16-0400 Systolic blood pressure 141 mm[Hg] Dr. Tonio Fajardo Work Phone: [facility] Work Phone: 02-08-2022 13:06-0400 Body temperature 98.1 [degF] Dr. Tonio Fajardo Work Phone: [facility] Work Phone: 02-08-2022 13:06-0400 Diastolic blood pressure 63 mm[Hg] Dr. Tonio Fajardo Work Phone: [facility] Work Phone: 02-08-2022 13:06-0400 Heart rate 83 /min Dr. Tonio Fajardo Work Phone: [facility] Work Phone: 02-08-2022 13:06-0400 Respiratory rate 20 /min Dr. Tonio Fajardo Work Phone: [facility] Work Phone: 02-08-2022 13:06-0400 Systolic blood pressure 131 mm[Hg] Dr. Tonio Fajardo Work Phone: [facility] Work Phone: 01-17-2022 10:56-0400 Body height 167.[address] Tonio Fajardo Work Phone: [facility] Work Phone: 01-17-2022 10:56-0400 Body mass index (BMI) [Ratio] 31.9 kg/m2 Dr. Tonio Fajardo Work Phone: [facility] Work Phone: 01-17-2022 10:56-0400 Body weight 89.[address] Tonio Fajardo Work Phone: [facility] Work Phone: 01-17-2022 10:56-0400 Diastolic blood pressure 44 mm[Hg] Dr. Tonio Fajardo Work Phone: [facility] Work Phone: 01-17-2022 10:56-0400 Heart rate 64 /min Dr. Tonio Fajardo Work Phone: [facility] Work Phone: 01-17-2022 10:56-0400 Respiratory rate 22 /min Dr. Tonio Fajardo Work Phone: [facility] Work Phone: 01-17-2022 10:56-0400 SaO2% (BldA) [Mass fraction] 95 % Dr. Tonio Fajardo Work Phone: [facility] Work Phone: 01-17-2022 10:56-0400 Systolic blood pressure 101 mm[Hg] Dr. Tonio Fajardo Work Phone: [facility] Work Phone: 01-17-2022 10:56-0400 Body height 167.[address] Tonio Fajardo Work Phone: [facility] Work Phone: 01-17-2022 10:56-0400 Body mass index (BMI) [Ratio] 31.9 kg/m2 Dr. Tonio Fajardo Work Phone: [facility] Work Phone: 01-17-2022 10:56-0400 Body weight 89.[address] Tonio Fajardo Work Phone: [facility] Work Phone: 01-17-2022 10:56-0400 Diastolic blood pressure 44 mm[Hg] Dr. Tonio Fajardo Work Phone: [facility] Work Phone: 01-17-2022 10:56-0400 Heart rate 64 /min Dr. Tonio Fajardo Work Phone: [facility] Work Phone: 01-17-2022 10:56-0400 Respiratory rate 22 /min Dr. Tonio Fajardo Work Phone: [facility] Work Phone: 01-17-2022 10:56-0400 SaO2% (BldA) [Mass fraction] 95 % Dr. Tonio Fajardo Work Phone: [facility] Work Phone: 01-17-2022 10:56-0400 Systolic blood pressure 101 mm[Hg] Dr. Tonio Fajardo Work Phone: [facility] Work Phone: 01-04-2022 12:59-0400 Body temperature 96.4 [degF] Dr. Tonio Fajardo Work Phone: [facility] Work Phone: 01-04-2022 12:59-0400 Diastolic blood pressure 64 mm[Hg] Dr. Tonio Fajardo Work Phone: [facility] Work Phone: 01-04-2022 12:59-0400 Heart rate 70 /min Dr. Tonio Fajardo Work Phone: [facility] Work Phone: 01-04-2022 12:59-0400 Respiratory rate 16 /min Dr. Tonio Fajardo Work Phone: [facility] Work Phone: 01-04-2022 12:59-0400 Systolic blood pressure 135 mm[Hg] Dr. Tonio Fajardo Work Phone: [facility] Work Phone: 12-21-2021 13:10-0400 Body temperature 97 [degF] [facility] Work Phone: 12-21-2021 13:10-0400 Diastolic blood pressure 62 mm[Hg] [facility] Work Phone: 12-21-2021 13:10-0400 Heart rate 88 /min [facility] Work Phone: 12-21-2021 13:10-0400 Systolic blood pressure 173 mm[Hg] [facility] Work Phone: 12-18-2021 00:38-0400 Respiratory rate 16 /min [facility] Work Phone: 11-29-2021 13:03-0400 Body temperature 97.4 [degF] [facility] Work Phone: 11-29-2021 13:03-0400 Diastolic blood pressure 43 mm[Hg] [facility] Work Phone: 11-29-2021 13:03-0400 Heart rate 69 /min [facility] Work Phone: 11-29-2021 13:03-0400 Respiratory rate 16 /min [facility] Work Phone: 11-29-2021 13:03-0400 Systolic blood pressure 134 mm[Hg] [facility] Work Phone: 11-09-2021 13:07-0400 Body temperature 97 [degF] [facility] Work Phone: 11-09-2021 13:07-0400 Diastolic blood pressure 41 mm[Hg] [facility] Work Phone: 11-09-2021 13:07-0400 Heart rate 73 /min [facility] Work Phone: 11-09-2021 13:07-0400 Respiratory rate 18 /min [facility] Work Phone: 11-09-2021 13:07-0400 Systolic blood pressure 126 mm[Hg] [facility] Work Phone: Encounters Encounter Date Encounter Type Care Provider Facility Start: 04-17-2025 Evaluation and management of inpatient [facility] Facility:[facility] Start: 04-16-2025 ambulatory [facility] [place] [facility] Start: 04-13-2025 End: 04-17-2025 Evaluation and management of inpatient DR DAVID STERLING MD [facility] Start: 04-12-2025 End: 04-13-2025 Dr. Tonio Fajardo [...] Unit Start: 04-10-2025 End: 04-10-2025 Carol Sousa -[facility] Work Phone: Start: 04-10-2025 Dr. Nicola Roman [facility] Work Phone: Start: 04-10-2025 End: 04-10-[address] Tonio Fajardo DO Work Phone: -[facility] Start: 04-10-2025 End: 04-10-2025 Dr. Issa Looney MD -[facility] Work Phone: Start: 04-09-2025 Dr. Santos Hsu MD -[facility] Start: 04-09-2025 Dr. Nicola Roman MD [facility] Work Phone: Start: 04-08-2025 Dr. Issa Looney MD -[facility] Start: 04-08-2025 Dr. Nicola Roman [facility] Work Phone: Start: 04-07-2025 Dr. Nicola Roman MD [facility] Work Phone: Start: 04-06-2025 Dr. Deric Lantigua MD -[facility] Work Phone: Start: 04-05-2025 ambulatory [...] 04-02-2025 End: 04-02-2025 ambulatory Carmelina E Aida Facility:[facility] Start: 03-27-2025 End: 03-27-[address] Tonio Fajardo DO Work Phone: -Pulmonary Services/Neurology Start: 03-27-2025 End: 03-27-2025 Patient encounter procedure Leslie DAMIAN -Pulmonary Services/Neurology Work Phone: Start: 03-27-2025 End: 03-27-2025 Leslie DAMIAN -Pulmonary Services/Neurology Work Phone: Start: 03-27-2025 End: 03-27-2025 ambulatory Leslie DAMIAN Facility:[facility] Start: 03-18-2025 End: 03-18-[address] Tonio Fajardo DO Work Phone: -Laboratory [facility] Start: 03-18-2025 End: 03-18-[address] Tonio Fajardo DO -Laboratory [facility] Start: 03-18-2025 End: 03-18-2025 Dr. Tonio Fajardo DO -Laboratory [facility] Start: 03-17-2025 End: 03-17-2025 Patient encounter procedure Leslie Arriaga [facility] Work Phone: Start: 03-17-2025 End: 03-17-2025 Leslie Arriaga DC -[facility] Work Phone: Start: 03-17-2025 End: 03-18-[address] Tonio Fajardo DO Work Phone: -[facility] Start: 03-15-2025 End: 03-15-2025 Dr. Alex Matias MD -Emergency [facility] Work Phone: Start: 03-15-2025 End: 03-15-2025 Emergency department patient visit Dr. Tonio Fajardo DO Work Phone: -Emergency Department Work Phone: Start: 03-09-2025 Non-patient / Non-visit Dr. Deric Lantigua MD [facility] Work Phone: Start: 03-09-2025 Dr. Deric Lantigua MD [facility] Work Phone: Start: 03-09-2025 Non-patient / Non-visit Dr. Willian Glaser MD -[facility] Start: 03-09-2025 Dr. Willian Glaser MD [facility] Start: 03-08-2025 Non-patient / Non-visit Dr. Marjorie castellano MD -[facility] Start: 03-08-2025 Dr. Marjorie Green MD [facility] Start: 03-07-2025 Non-patient / Non-visit Dr. Deric Lantigua MD -[facility] Work Phone: Start: 03-07-2025 Dr. Deric Lantigua MD -[facility] Work Phone: Start: 03-06-2025 Non-patient / Non-visit Dr. Deric Lantigua MD -[facility] Work Phone: Start: 03-06-2025 Dr. Deric Lantigua MD -[facility] Work Phone: Start: 03-06-2025 Non-patient / Non-visit Dr. Marjorie castellano MD [facility] Start: 03-06-2025 Dr. Marjorie Green MD [facility] Start: 03-05-2025 ambulatory Marjorie Peter Facility: [place] Start: 03-05-2025 Non-patient / [facility] Start: 03-05-2025 Dr. Marjorie Green MD [facility] Start: 03-05-2025 Non-patient / Non-visit Dr. Deric Lantigua MD -[facility] Work Phone: Start: 03-05-2025 Dr. Deric Lantigua MD -[facility] Work Phone: Start: 03-04-2025 ambulatory Nicola Lindsey Facili ty:[facility] Start: 03-04-2025 End: 03-09-2025 Evaluation and management of inpatient Dr. Nicola Lindsey DO -Progressive Care Unit Work Phone: Start: 03-04-2025 End: 03-09-2025 Dr. Deric Lantigua MD -[facility] Work Phone: Start: 11-06-[address] Russ Zamora MD -[facility] Start: 11-06-2024 End: 11-06-[address] Russ Zamora MD -[facility] Work Phone: Start: 11-06-2024 End: 11-06-2024 ambulatory Russ Zamora Facility:[facility] Start: 10-30-2024 End: 10-30-[address] Tonio Fajardo DO Work Phone: [facility] Work Phone: Start: 10-30-2024 End: 10-30-[address] Russ Zamora MD -Cat Scan, [facility] Work Phone: Start: 10-30-2024 End: 10-30-2024 ambulatory Russ Zamora Facility:[facility] Start: 10-23-2024 End: 10-23-2024 Patient encounter procedure Lorie BENSONC -[facility] Work Phone: Start: 10-23-2024 End: 10-23-2024 ambulatory [place]io [place]ty [place] Start: 10-20-2024 End: 10-20-[address] Tonio Fajardo DO Work Phone: [facility] Work Phone: Start: 10-20-2024 End: 10-20-[address] Tonio Fajardo DO -Laboratory, [facility] Start: 10-20-2024 End: 10-20-2024 ambulatory Tonio Scotty Facility:[facility] Start: 10-17-2024 ambulatory Tonio Scotty [place] [facility] Start: 10-17-2024 Non-patient / Non-visit Dr. Tyrell zuniga DO -[facility] Start: 10-16-2024 End: 10-16-[address] Tonio Fajardo DO Work Phone: [facility] Work Phone: Start: 10-16-2024 End: 10-16-2024 Patient encounter procedure Lorie ZHONG -Pulmonary Services/Neurology Work Phone: Start: 10-16-2024 End: 10-16-2024 ambulatory Tonio Scotty Facility:[facility] Start: 09-25-2024 End: 09-25-2024 Patient encounter procedure Leslie Arriaga PA -[facility] Work Phone: Start: 09-25-2024 End: 09-25-2024 ambulatory Tonio Fajardo Facility:[facility] Start: 09-25-2024 End: 09-25-2024 ambulatory Leslie DAMIAN Facility:[facility] Start: 07-03-2024 End: 07-03-[address] Joaquim Suárez [facility] -Laboratory, Specimen Work Phone: Start: 07-03-2024 End: 07-03-2024 ambulatory Joaquim Suárez Facility:[facility] Start: 06-17-2024 End: 06-17-2024 ambulatory Joaquim Montgomery Facility:[facility] Start: 05-05-2024 End: 05-05-2024 ambulatory [facility] Facility:[facility] Start: 04-28-2024 End: 04-28-2024 ambulatory [facility] Facility:[facility] Start: 12-24-2023 End: 12-24-[address] Tonio Fajardo Work Phone: [facility] Work Phone: Start: 12-24-2023 End: 12-24-[address] Tonio Fajardo Work Phone: [facility]-Laboratory, Specimen Work Phone: Start: 11-12-2023 End: 11-12-[address] Tonio Fajardo Work Phone: [facility] Work Phone: Start: 11-06-[address] Tonio Fajardo Work Phone: [facility] Start: 10-31-2023 End: 10-31-[address] Tonio Fajardo Work Phone: [facility] Work Phone: Start: 10-18-2023 End: 10-18-[address] Tonio Fajardo Work Phone: [facility] Work Phone: Start: 10-12-2023 End: 10-12-[address] Tonio Fajardo Work Phone: [facility] Work Phone: Start: 10-12-2023 End: 10-12-[address] Tonio Fajardo Work Phone: [facility]-Cat Scan, [facility] Work Phone: Start: 08-29-2023 End: 08-29-[address] Tonio Fajardo Work Phone: [facility] Work Phone: Start: 08-22-2023 Non-patient / Non-visit Dr. Min Fajardo Work Phone: [facility] Start: 08-22-2023 End: 08-22-[address] Tonio Fajardo Work Phone: [facility]-Cardiovascular Services Work Phone: Start: 07-26-2023 End: 07-26-[address] Tonio Fajardo Work Phone: [facility] Work Phone: Start: 07-26-2023 End: 07-26-[address] Tonio Fajardo Work Phone: [facility] Work Phone: Start: 07-25-2023 End: 07-25-[address] Tonio Fajardo Work Phone: [facility]-Pulmonary Medicine [facility] Work Phone: Start: 06-22-2023 End: 06-22-[address] Tonio Fajardo Work Phone: [facility] Work Phone: Start: 06-22-2023 End: 06-22-[address] Tonio Fajardo Work Phone: [facility]-Laboratory, Specimen Work Phone: Start: 06-08-2023 End: 06-08-2023 Admission to same day surgery center Dr. Tonio Fajardo [facility] Start: 06-08-2023 End: 06-08-[address] Tonio Fajardo Work Phone: [facility] Work Phone: Start: 05-02-2023 End: 05-19-[address] Ton[facility] Fajardo [facility] Work Phone: Start: 04-20-2023 Non-patient / Non-visit Dr. Min Fajardo Work Phone: [facility] Start: 04-18-2023 End: 04-19-[address] Tonio Fajardo Work Phone: [facility] Work Phone: Start: 04-18-2023 End: 04-19-[address] Ton[facility] Fajardo [facility] Work Phone: Start: 04-17-[address] Tonio Fajardo Work Phone: [facility] Start: 04-17-2023 End: 04-17-[address] Tonio Fajardo Work Phone: [facility] Work Phone: Start: 04-10-2023 End: 04-10-[address] Tonio Fajardo Work Phone: [facility] Work Phone: Start: 04-10-2023 End: 04-10-[address] [facility] Fajardo [facility] Work Phone[facility] Start: 04-02-2023 Non-patient / Non-visit Dr. Min Fajardo Work Phone: [facility] Start: 04-02-[address] Tonio Fajadro Work Phone[facility] Work Phone: Start: 03-19-2023 Non-patient / Non-visit Dr. Min Fajardo Work Phone: [facility] Start: 03-19-2023 End: 03-19-[address] Tonio Fajardo Work Phone: [facility] Work Phone: Start: 03-19-2023 End: 03-19-[address] Tonio Fajardo Work [facility] Work Phone: Start: 03-05-2023 Non-patient / Non-visit Dr. Min Fajardo Work Phone: [facility] Start: 02-23-2023 End: 02-23-[address] Tonio Fajardo Work Phone: [facility] Work Phone: Start: 02-19-2023 Non-patient / Non-visit Dr. Min Fajardo Work Phone: [facility] Start: 02-05-2023 Non-patient / Non-visit Dr. Min Fajardo Work Phone: [facility] Start: 02-05-2023 End: 02-16-[address] Tonio Fajardo Work Phone: [facility] Work Phone: Start: 02-05-2023 End: 02-16-[address] Tonio Fajardo Work Phone: [facility] Work Phone: Start: 01-22-2023 Non-patient / Non-visit Dr. Min Fajardo Work Phone: [facility] Start: 01-08-2023 Non-patient / Non-visit Dr. Min Fajardo Work Phone: [facility] Start: 01-08-2023 End: 01-17-[address] Tonio Fajardo Work Phone: [facility] Work Phone: Start: 01-08-2023 End: 01-17-[address] Tonio Fajardo Work Phone: [facility] Start: 12-30-2022 End: 12-31-2022 Emergency department patient visit Dr. Tonio Fajardo Work Phone: [facility]-Emergency Department Start: 12-25-2022 Non-patient / Non-visit Dr. Min Fajardo Work Phone: [facility] Start: 12-25-[address] Tonio Fajardo Work Phone[facility] Start: 12-18-2022 Non-patient / Non-visit Dr. Min Fajardo Work Phone: [facility] Start: 12-12-2022 End: 12-12-[address] Tonio Fajardo Work Phone[facility] Start: 12-11-2022 Non-patient / Non-visit Dr. Min Fajardo Work Phone: [facility] Start: 12-11-2022 End: 12-17-[address] Tonio Fajardo Work Phone: [facility] Work Phone: Start: 12-11-2022 End: 12-17-[address] Tonio Fajardo Work Phone: [facility] Start: 12-06-2022 Non-patient / Non-visit Dr. Min Fajardo Work Phone: [facility] Start: 11-27-2022 Non-patient / Non-visit Dr. Min Fajardo Work Phone: [facility] Start: 11-20-2022 Non-patient / Non-visit Dr. Min Fajardo Work Phone: [facility] Start: 11-08-2022 Non-patient / Non-visit Dr. Min Fajardo Work Phone: [facility] Start: 11-08-2022 End: 11-17-[address] Tonio Fajardo Work Phone: [facility] Start: 10-30-2022 Non-patient / Non-visit Dr. Min Fajardo Work Phone: [facility] Start: 10-23-2022 Non-patient / Non-visit Dr. Min Fajardo Work Phone: [facility] Start: 10-18-2022 Non-patient / Non-visit Dr. Min Fajardo Work Phone: [facility] Start: 10-16-[address] Tonio Fajardo Work Phone: [facility] Start: 10-16-2022 End: 10-16-[address] Tonio Fajardo Work Phone: [facility] Start: 10-09-2022 Non-patient / Non-visit Dr. Min Fajardo Work Phone: [facility] Start: 10-09-2022 End: 10-09-[address] Tonio Fajardo Work Phone: [facility] Start: 10-09-2022 End: 10-17-[address] Tonio Fajardo Work Phone: [facility] Work Phone: Start: 10-09-2022 End: 10-17-[address] Ton[facility] Fajardo [facility] Start: 10-09-[address] Tonio Fajardo Work Phone[facility] [place] Start: 10-02-2022 Non-patient / Non-visit Dr. Min Fajardo Work Phone: [facility] Start: 10-02-2022 End: 10-02-[address] Tonio Fajardo Work Phone: [facility] Start: 09-25-2022 Non-patient / Non-visit Dr. Min Fajardo Work Phone: [facility] Start: 09-18-2022 Non-patient / Non-visit Dr. Min Fajardo Work Phone: [facility] Start: 09-18-2022 End: 09-19-[address] Tonio Fajardo Work Phone: [facility] Work Phone: Start: 09-18-2022 End: 09-19-[address] Tonio Fajardo Work Phone: [facility] Start: 08-29-2022 Non-patient / Non-visit Dr. Min Fajardo Work Phone: [facility] Start: 08-15-2022 Non-patient / Non-visit Dr. Min Fajardo Work Phone: [facility] Start: 08-15-2022 End: 08-19-[address] Tonio Fajardo Work Phone: [facility] Work Phone: Start: 08-15-2022 End: 08-19-[address] Tonio Fajardo Work Phone: [facility] Start: 08-08-2022 End: 08-08-[address] Tonio Fajardo Work Phone: [facility] Start: 08-01-2022 Non-patient / Non-visit Dr. Min Fajardo Work Phone: [facility] Start: 07-28-2022 Telephone encounter Jessie Parra APRN.[facility] Work Phone: [facility] Comment on above: Patient Update Start: 07-19-2022 End: 07-19-[address] Tonio Fajardo Work Phone: [facility] Start: 07-18-2022 Non-patient / Non-visit Dr. Min Fajardo Work Phone: [facility] Start: 07-18-2022 End: 07-19-[address] Tonio Fajardo Work Phone: [facility] Work Phone: Start: 07-18-2022 End: 07-19-[address] Ton[facility] Fajardo [facility] Start: 07-17-2022 End: 07-17-[address] Tonio Fajardo Work Phone: [facility] Start: 07-09-[address] Tonio Fajardo [facility] Start: 07-09-2022 Non-patient / Non-visit Dr. Min Fajardo Work Phone: [facility] Start: 07-05-2022 End: 07-05-[address] Tonio Fajardo Work Phone: [facility] Start: 06-28-2022 End: 06-28-[address] Tonio Fajardo Work Phone: [facility] Start: 06-26-2022 Non-patient / Non-visit Dr. Min Fajardo Work Phone: [facility] Start: 06-21-2022 End: 06-21-[address] Tonio Fajardo Work Phone: [facility] Start: 06-19-[address] Tonio Fajardo [facility] Start: 06-14-2022 End: 06-14-[address] Tonio Fajardo Work Phone: [facility] Start: 06-12-2022 Non-patient / Non-visit Dr. Min Fajardo Work Phone: [facility] Start: 06-12-2022 End: 06-19-[address] Tonio Fajardo Work Phone: [facility] Work Phone: Start: 06-12-2022 End: 06-19-[address] Tonio Fajardo [facility] Start: 06-06-2022 Non-patient / Non-visit Dr. Min Fajardo Work Phone: [facility] Start: 06-02-2022 Non-patient / Non-visit Dr. Min Fajardo Work Phone: [facility] Start: 06-02-2022 End: 06-02-[address] Tonio Fajardo Work Phone: [facility] Work Phone: Start: 06-02-2022 End: 06-02-[address] Tonio Fajardo Work Phone: [facility]-Pulmonary Services/Neurology Start: 06-01-2022 Non-patient / Non-visit Dr. Min Fajardo Work Phone: [facility] Start: 06-01-[address] Tonio Fajardo Work Phone: [facility]-Radiation Oncology Start: 05-30-[address] Tonio Fajardo Work Phone: [facility] Start: 05-30-2022 End: 05-30-[address] Tonio Fajardo Work Phone: [facility] Start: 05-29-2022 Non-patient / Non-visit Dr. Min Fajardo Work Phone: [facility] Start: 05-29-[address] Tonio Fajardo Work Phone: [facility] Start: 05-24-2022 End: 05-24-[address] Tonio Fajardo Work Phone: [facility] Start: 05-24-2022 Non-patient / Non-visit Dr. Min Fajardo Work Phone: [facility] Start: 05-24-[address] Ton[facility]ardo [facility] Start: 05-22-2022 End: 05-22-[address] Tonio Fajardo Work Phone: [facility] Work Phone: Start: 05-22-2022 End: 05-22-[address] Tonio Fajardo Work Phone: [facility] Start: 05-17-2022 Non-patient / Non-visit Dr. Min Fjaardo Work Phone: [facility] Start: 05-17-2022 End: 05-19-[address] Tonio Fajardo Work Phone: [facility] Work Phone: Start: 05-17-2022 End: 05-19-[address] Ton[facility]ajardo [facility] Start: 05-17-[address] Tonio Fajardo Work Phone: [facility] Start: 05-11-2022 End: 05-11-[address] Tonio Fajardo Work Phone: [facility] Start: 05-11-2022 End: 05-11-[address] Ton[facility] Fajardo [facility] Start: 04-28-2022 Non-patient / Non-visit Dr. Min Fajardo Work Phone: [facility] Start: 04-28-2022 End: 04-28-[address] Tonio Fajardo Work Phone: [facility] Work Phone: Start: 04-28-2022 End: 04-28-[address] Tonio Fajardo Work Phone: [facility] Start: 04-26-[address] Tonio Fajardo Work Phone: [facility] Start: 04-14-2022 End: 04-14-[address] Tonio Fajardo Work Phone: [facility] Work Phone: Start: 04-14-2022 End: 04-14-[address] Tonio Fajardo Work Phone: [facility] Start: 04-14-2022 End: 04-14-2022 Emergency department patient visit Dr. Tonio Fajardo Work Phone: [facility] Start: 04-12-2022 End: 04-12-[address] Tonio Fajardo Work Phone: [facility] Work Phone: Start: 04-12-2022 End: 04-12-[address] Tonio Fajardo Work Phone: [facility] Start: 04-12-2022 End: 04-19-[address] Tonio Fajardo Work Phone: [facility] Work Phone: Start: 04-12-2022 End: 04-19-[address] Tonio Fajardo Work Phone: [facility] Start: 04-12-[address] Tonio Fajardo Work Phone: [facility] Start: 04-06-2022 Telephone encounter Derek Rivera MD Work Phone: [facility] Comment on above: Results (COVID+) Start: 04-05-2022 End: 04-05-2022 ambulatory TONIO FAJARDO Facility:[facility] Start: 04-05-2022 Telephone encounter Jessie Parra APRN.CONCRETE STONE FINISHER Work Phone: [facility] Comment on above: Results Start: 04-05-2022 End: 04-05-2022 Subsequent hospital visit by physician [facility] Work Phone: Radiology Comment on above: Acute cough [R05.1] Start: 04-05-2022 End: 04-05-2022 Patient encounter procedure Jessie Rodriguez APRN.CONCRETE STONE FINISHER Work Phone: [facility] Comment on above: Burning with urinati on (Primary Dx); Acute cough; Suspected COVID-19 virus infection Start: 03-01-2022 End: 03-19-[address] Tonio Fajardo Work Phone: [facility] Start: 02-08-2022 End: 02-16-[address] Tonio Fajardo Work Phone: [facility] Start: 01-17-2022 End: 01-17-[address] Tonio Fajardo Work Phone: [facility] Start: 01-04-2022 End: 01-17-[address] Tonio Fajardo Work Phone: [facility] Start: 12-21-2021 Registered Recurring [facility] Start: 12-19-2021 End: 12-19-2021 [facility] Start: 11-29-2021 End: 12-17-2021 Nutrition therapy [facility] Start: 11-09-2021 End: 11-17-2021 Nutrition therapy [facility] Procedures Date Procedure Procedure Detail [...] Work Phone: Start: 04-11-2025 Blood count smear rscp w/mnl difrntl wbc [...] rscp w/mnl difrntl wbc count Dr. Tonio Fjaardo DO Work Phone: Start: 04-02-2025 Mean corpuscular [...] Work Phone: Start: 03-06-[address] Tnoio Fajardo DO Work Phone: Start: 03-06-2025 Serum inorganic phos phate measurement Dr. Tonio Fajardo DO Work Phone: Start: 03-05-[address] Tonio Fajardo DO Work Phone: Start: 03-05-2025 Total cholesterol:HD L ratio measurement Dr. Tonio Fajardo DO Work Phone: Start: 03-05-2025 Plain chest X-ray Dr. Silvana Fajardo DO Work Phone: Start: 03-04-2025 Urine [...] Phone: Comment on above: Sent directly to [facility] per ordering physician. Start: 12-24-2023 Investigation [...] Radiologic exam chest 2 views Jessie Rodriguez BEREAVEMENT PROGRAM COORDINATOR.CONCRETE STONE FINISHER Work Phone: Start: 04-05-2022 Urnls dip stick/tabl et rgnt auto w/o microscopy Onelia Cuevas BEREAVEMENT PROGRAM COORDINATOR.CONCRETE STONE FINISHER Work Phone: Start: 11-02-2021 X-ray of both [...] Fajardo Work Phone: Urine culture Dr. Tonio Ayon ailyn Work Phone: Urine culture Dr. Tonio robertson Work Phone: Plan of Treatment Date Care Activity Detail Author Start: 04-13-2025 End: 04-13-2025 [facility] Start: 04-13-2025 Patient discharge [facility] Start: 04-12-[address] [facility] Start: 04-11-2025 Referral to occupati onal therapist [facility] Start: 04-11-2025 Developing a treatme nt plan [facility] Start: 04-11-[address] [facility] Start: 04-11-2025 [address]ound care [facility] Start: 04-11-2025 Consultation for treatment [facility] Start: 04-11-2025 Contact precautions [facility] Start: 04-10-2025 Following clinical p athway protocol [facility] Start: 04-10-2025 Admission procedure [facility] Start: 04-10-2025 Introduction of urin dakota catheter [facility] Start: 04-10-2025 Measuring intake and output [facility] Start: 04-10-2025 End: 04-11-2025 Patient referral to dietitian [facility] Start: 04-10-2025 Referral to occupati onal therapist [facility] Start: 04-10-2025 Referral to service [facility] Start: 04-10-2025 Vital signs measurements [facility] Start: 04-10-2025 Oxygen therapy [facility] Start: 04-10-2025 Patient discharge [facility] Start: 04-10-2025 End: 04-10-2025 Microbial culture, body fluid [facility] Start: 04-10-2025 Anaerobic microbial culture [facility] Start: 04-10-2025 End: 04-10-2025 [facility] Start: 04-09-2025 Referral to service [facility] Start: 04-09-2025 Care planning and pr oblem solving actions [facility] Start: 04-09-2025 Assessment of risk o f venous thromboembolism [facility] Start: 04-09-2025 Catheterization of vein [facility] Start: 04-09-2025 Notification of physician [facility] Start: 04-09-2025 Taking patient vital signs [facility] Start: 04-09-2025 [address]ound care [facility] Start: 04-09-2025 End: 04-09-2025 [facility] Start: 04-09-2025 Care planning and pr oblem solving actions [facility] Start: 04-09-[address] [facility] Start: 04-08-2025 Catheterization of vein [facility] Start: 04-08-2025 Notification of physician [facility] Start: 04-08-[address] [facility] Start: 04-08-2025 Referral to compliance quality performance analyst [facility] Start: 04-08-2025 End: 04-08-2025 Referral to service [facility] Start: 04-07-2025 Referral to occupati onal therapist [facility] Start: 04-07-2025 Referral to service [facility] Start: 04-07-2025 Provision of activit y privileges [facility] Start: 04-07-2025 Wound care [facility] Start: 04-06-[address] [facility] Start: 04-06-2025 Continuous pulse oximetry [facility] Start: 04-06-2025 Consultation for treatment [facility] Start: 04-06-2025 XR Chest Single view [facility] Start: 04-06-[address] [facility] Start: 04-06-2025 Inhalation therapy procedure [facility] Start: 04-05-2025 Following clinical p athway protocol [facility] Start: 04-05-2025 Assessment of risk o f venous thromboembolism [facility] Start: 04-05-2025 Care regimes management [facility] Start: 04-05-2025 Catheterization of vein [facility] Start: 04-05-2025 Insertion of cathete r into peripheral vein [facility] Start: 04-05-2025 Measuring intake and output [facility] Start: 04-05-2025 Notification of physician [facility] Start: 04-05-2025 Oxygen therapy [facility] Start: 04-05-2025 Providing care accor ding to standard [facility] Start: 04-05-2025 Provision of activit y privileges [facility] Start: 04-05-2025 Referral to occupati onal therapist [facility] Start: 04-05-2025 Referral to service [facility] Start: 04-05-2025 End: 04-05-2025 [facility] Start: 04-05-2025 Referral to marketing communication manager [facility] Start: 04-05-2025 Verification routine [facility] Start: 04-05-2025 Urinalysis complete panel - Urine [facility] Start: 04-05-2025 Admission procedure [facility] Start: 04-05-2025 Hospital admission, emergency, from emergency room, medical nature [facility] Start: 04-05-2025 End: 04-05-2025 [facility] Start: 04-05-2025 Patient referral to dietitian [facility] Start: 03-27-2025 24 Hour ECG [facility] Start: 03-15-[address] [facility] Start: 03-15-2025 Control nasal hemorr min anterior simple [facility] Start: 03-09-2025 Referral to service [facility] Start: 03-09-2025 Patient discharge [facility] Start: 03-08-2025 Application of elast ic bandage [facility] Start: 03-07-2025 Introduction of urin dakota catheter [facility] Start: 03-06-2025 Inhalation therapy procedure [facility] Start: 03-05-[address] [facility] Start: 03-05-2025 Care planning and pr oblem solving actions [facility] Start: 03-05-2025 Chest 1 View (Portable) Chest 1 View (Portable) [facility] Start: 03-05-2025 XR Chest Single view [facility] Start: 03-05-2025 Care planning and pr oblem solving actions [facility] Start: 03-04-2025 Following clinical p athway protocol [facility] Start: 03-04-2025 Assessment of risk o f venous thromboembolism [facility] Start: 03-04-2025 Care regimes management [facility] Start: 03-04-2025 Catheterization of vein [facility] Start: 03-04-2025 Insertion of cathete r into peripheral vein [facility] Start: 03-04-2025 Measuring intake and output [facility] Start: 03-04-2025 Notification of physician [facility] Start: 03-04-2025 Oxygen therapy [facility] Start: 03-04-2025 Providing care accor ding to standard [facility] Start: 03-04-2025 Provision of activit y privileges [facility] Start: 03-04-2025 Referral to compliance quality performance analyst [facility] Start: 03-04-2025 Referral to occupati onal therapist [facility] Start: 03-04-2025 Referral to service [facility] Start: 03-04-2025 End: 03-04-2025 [facility] Start: 03-04-2025 Hospital admission, emergency, from emergency room, medical nature [facility] Start: 03-04-2025 Verification routine [facility] Start: 03-04-2025 Admission procedure [facility] Start: 03-04-2025 Thyroid stimulating hormone measurement [facility] Start: 03-04-[address] [facility] Start: 03-04-2025 Patient referral to dietitian [facility] Start: 04-20-2024 Covid-19 Vaccine ( season) Covid-19 Vaccine ( season) [facility] Start: 04-20-2024 Influenza vaccination Influenza Vacc ine (#1) [facility] Start: 08-20-2023 Advance Directive Discussion Advance Directive Discussion [facility] Start: 06-22-[address] [facility] Start: 06-08-2023 Patient discharge [facility] Start: 06-08-2023 Anes open proc bones lower leg/ankle/foot nos ANESTH LOWER LEG BONE SURG [facility] Start: 06-08-2023 Osteot w/wo lngth shrt/corrj 1st metar INCISION OF METATARSAL [facility] Start: 06-08-2023 Prep site f/s/n/h/f/ g/m/d gt 1st 100 sq cm/1pct WOUND PREP F/N/HF/G [facility] Start: 06-08-2023 Sub grft f/s/n/h/f/g /m/d <100sq cm 1st 25 sq cm SKIN SUB GRAFT FACE/NK/HF/G [facility] Start: 06-08-2023 Fluoroscopic guidance O.R. Fluoro fo r C-Arm [facility] Start: 06-08-2023 Radiography of foot Foot 2 Views [facility] Start: 12-30-[address] [facility] Start: 12-30-2022 End: 12-30-2022 Blood culture [facility] Start: 12-30-2022 End: 12-30-2022 [facility] Start: 10-16-2022 CBC W Auto Different ial panel - Blood [facility] Start: 10-16-2022 Lactate dehydrogenas e measurement [facility] Start: 10-16-2022 End: 10-16-2022 [facility] Start: 07-18-[address] [facility] Work Phone: Start: 05-18-[address] [facility] Work Phone: Start: 05-11-2022 Patient referral [facility] Work Phone: Start: 04-28-2022 CORE NDL BX LNG/MED PERQ CORE NDL BX LNG/MED PERQ [facility] Work Phone: Start: 04-28-2022 Following clinical p athway protocol [facility] Work Phone: Start: 04-28-2022 Catheterization of vein [facility] Work Phone: Start: 04-28-2022 Oxygen therapy [facility] Work Phone: Start: 04-28-2022 Patient discharge [facility] Work Phone: Start: 04-28-2022 Vital signs measurements [facility] Work Phone: Start: 04-20-2022 Influenza vaccination INFLUENZA (#1) [facility] Start: 04-05-2022 End: 04-19-2022 Influenza virus A and B RNA and SARS-CoV-2 (COVID-19) N gene panel - Respiratory specimen by BRYAN with probe detection [facility] [employer] Work Phone: Comment on above: Expected: 04/05/2022 , Expires: 04/19/2022 Start: 08-20-2021 ADVANCE DIRECTIVE DISCUSSION ADVANCE DIRECTIVE DISCUSSION [facility] Start: 08-20-2021 DEPRESSION ASSESSMENT DEPRESSION ASS ESSMENT [facility] Start: 05-04-2021 COVID-19 VACCINE (3 - Booster for Moderna series) COVID-19 VACCINE (3 - Booster for Moderna series) [facility] Start: 01-27-2021 COVID-19 VACCINE (3 - Booster for Moderna series) COVID-19 VACCINE (3 - Booster for Moderna series) [facility] Start: 01-15-2020 RSV Vaccine (1 - 1-d ose 75+ series) RSV Vaccine (1 - 1-dose 75+ series) [facility] Start: 12-01-2018 [facility]ET[facility]CRE[facility] Start: 12-01-2018 Diabetes Screening Diabetes Screenin g [facility] Start: 2010 Pneumococcal Vaccine : 65+ (1 of 1 - PCV) Pneumococcal Vaccine: 65+ (1 of 1 - PCV) [facility] Start: 2010 PNEUMOCOCCAL: 65+ (1 - PCV) PNEUMOCOCCAL: 65+ (1 - PCV) [facility] Start: 1995 SHINGRIX VACCINE (1 of 2) HEIN GRIX VACCINE (1 of 2) [facility] Start: 01-15-1964 Urine microalbumin profile [facility] Start: 1963 Anxiety Screening Anxiety Screening [facility] Start: 1963 Depression Screening Depression Scre ening [facility] Start: 1963 HEPATITIS C SCREENING HEPATITIS C SC REENING [facility] Start: 1957 Adult depression scr eening assessment [facility] 24 Hour ECG [facility] Alanine aminotransfe rase [Enzymatic activity/volume] in Serum or Plasma [facility] Albumin [Mass/volume ] in Serum or Plasma [facility] Alkaline phosphatase [Enzymatic activity/volume] in Serum or Plasma [facility] Anaerobic Culture Anaerobic Culture [facility] Work Phone: Anion gap measurement [facility] Aspartate aminotrans ferase [Enzymatic activity/volume] in Serum or Plasma [facility] Bacteria identified in Blood by Culture Blood Culture [facility] Bacteria identified in Body fluid by Culture [facility] Bacteria identified in Unspecified specimen by Anaerobe culture [facility] Work Phone: Bacteria identified in Unspecified specimen by Anaerobe culture [facility] Bacteria identified in Urine by Culture URINE CULTURE Microbiology Routine Burning with urination 04/05/2022 1:58 PM EDT [facility] Work Phone: Bacteria identified in Urine by Culture Urine Culture [facility] Bilirubin, total measurement [facility] BUN/Creatinine ratio [facility] Calcium [Mass/volume ] in Serum or Plasma [facility] Carbon dioxide, tota l [Moles/volume] in Serum or Plasma [facility] CBC W Auto Different ial panel - Blood [facility] Work Phone: CBC W Auto Different ial panel - Blood [facility] CBC W Auto Different ial panel - Blood [facility] Chloride [Moles/volu me] in Serum or Plasma [facility] Creatinine [Moles/vo lume] in Serum or Plasma [facility] CT Chest and Abdomen W contrast IV [facility] CT Chest W contrast IV [facility] Work Phone: CT Chest W contrast IV [facility] Cytology report of B horace fluid Cyto stain [facility] Glucose [Mass/volume ] in Serum or Plasma [facility] Hematocrit [Volume Fraction] of Blood [facility] Hemoglobin [Mass/vol ume] in Blood [facility] Hemoglobin A1c/Hemoglobin.total in Blood [facility] Lactate dehydrogenas e measurement [facility] Lactate dehydrogenas e measurement [facility] LDH [facility] Work Phone: Leukocytes [#/volume ] in Blood [facility] Magnesium measurement [facility] Mean corpuscular hemoglobin concentration determination [facility] Mean corpuscular hemoglobin determination [facility] Measurement of renal function [facility] Microbial culture, routine Wound Culture [facility] Work Phone: Microscopic observat ion [Identifier] in Unspecified specimen by Gram stain [facility] MR Brain WO and W co ntrast IV [facility] Work Phone: Natriuretic peptide. B prohormone N-Terminal [Mass/volume] in Serum or Plasma [facility] Natriuretic peptide. B prohormone N-Terminal [Mass/volume] in Serum or Plasma [facility] Neutrophil count [facility] Neutrophil percent differential count [facility] Patient Education [facility] Work Phone: Patient referral [facility] Work Phone: Platelets [#/volume] in Blood [facility] Positron emission tomography with computed tomography [facility] Work Phone: Potassium [Moles/vol ume] in Serum or Plasma [facility] Procedure [facility] PT Unspecified body region [facility] Radiation oncology A ND/OR radiotherapy [facility] Work Phone: Radiation oncology A ND/OR radiotherapy [facility] Red blood cell count [facility] Red cell distributio n width determination [facility] Sodium [Moles/volume ] in Serum or Plasma [facility] Total protein measurement [facility] Troponin T.cardiac [Mass/volume] in Serum or Plasma by High sensitivity method [facility] Troponin T.cardiac [Mass/volume] in Serum or Plasma by High sensitivity method [facility] Urea nitrogen [Mass/volume] in Serum or Plasma [facility] Immunizations Immunization Date Immunization Notes Care Provider Fa cili 06-23-2024 influenza virus vaccine, unspecified formulation DR DAVID STERLING MD [facility] 02-26-2024 pneumococcal 20-shannon nt conjugate vaccine DR DAVID STERLING MD [facility] 06-01-2023 influenza virus vaccine, unspecified formulation DR DAVID STERLING MD [facility] 04-27-2022 influenza virus vaccine, unspecified formulation DR DAVID STERLING MD [facility] 12-02-2020 SARS-CoV-2 (COVID-19 ) mRNA-[address] DAVID STERLING MD [facility] Comment on above: Result Comment: 2024: [id number] 11-04-2020 SARS-CoV-2 (COVID-19 ) mRNA-[address] DAVID STERLING MD [facility] Comment on above: Result Comment: 2024: [id number] 08-03-2014 influenza virus vaccine, unspecified formulation [facility] [place] Work Phone: [facility] 06-20-2013 Influenza virus vaccine [facility] 06-20-2013 Pneumococcal Vaccine [facility] Work Phone: 06-20-2013 pneumococcal vaccine , unspecified formulation Dr. Tonio Fajardo Work Phone: [facility] Payers Date Payer Category Payer Private Health Insurance [id number] 2025 Self-pay [id number] 2022 Self-pay [id number] 2009 Medicare [id number] 2009 Medicare [id number] 2009 [employer] ( and others) [id number] 2009 Unknown FOR LIFE [id number] 2009-Present [phone] [address] [place] [address] Indemnity [id number].[facility] 1945 Unknown [id number] Unknown [id number] Unknown [id number] 2.16.840.1.510595.3.579.2 .462 Unknown [id number] 2.16.840.1.408802.3.579.2 .462 Unknown [id number] 2.16.840.1.013857.3.579.2 .462 Unknown [id number] 2.16.840.1.990002.3.579.2 .462 Unknown [id number] 2.16.840.1.521602.3.579.2 .462 Unknown [id number] 2.840.1.824367.3.579.2 .462 Unknown [id number] 2.16840.1.798209.3.579.2 .462 Unknown [id number] 2..840.1.202291.3.579.2 .462 Unknown [id number] 2.16.840.1.030770.3.579.2 .462 Unknown [id number] 2.16.840.1.251107.3.579.2 .462 Unknown [id number] 2.16.840.1.079449.3.579.2 .462 Unknown [id number] 2.16.840.1.846411.3.579.2 .462 Unknown [id number] 2.16.840.1.680322.3.579.2 .462 Unknown [id number] 2.16.840.1.467137.3.579.2 .462 Unknown [id number] 2.16.840.1.794760.3.579.2 .462 Unknown [id number] 2.16.840.1.561581.3.579.2 .462 Unknown [id number] 2.16.840.1.325108.3.579.2 .462 Unknown [id number] 2.16.840.1.917862.3.579.2 .462 Unknown [id number] 2.16.840.1.734138.3.579.2 .462 Unknown [id number] 2.16840.1.799804.3.579.2 .462 Unknown [id number] 2.16840.1.942367.3.579.2 .462 Unknown [id number] 2.840.1.304125.3.579.2 .462 Unknown [id number] 2.840.1.504113.3.579.2 .462 Unknown [id number] 2.840.1.820944.3.579.2 .462 Unknown [id number] 2.840.1.683844.3.579.2 .462 Unknown [id number] 2.840.1.449207.3.579.2 .462 Unknown [id number] 2.840.1.422639.3.579.2 .462 Unknown [id number] 2.16840.1.503426.3.579.2 .462 Unknown [id number] 2.840.1.086914.3.579.2 .462 Unknown [id number] 2.16840.1.943347.3.579.2 .462 Unknown [id number] 2.16840.1.079917.3.579.2 .462 Unknown [id number] 2.16840.1.141796.3.579.2 .462 Unknown [id number] 2.16.840.1.545849.3.579.2 .462 Unknown [id number] 2.16840.1.957728.3.579.2 .462 Unknown [id number] 2.16.840.1.338632.3.579.2 .462 Unknown [id number] 2.16.840.1.693849.3.579.2 .462 Unknown [id number] 2.16.840.1.771834.3.579.2 .462 Unknown [id number] 2.16.840.1.004322.3.579.2 .462 Unknown [id number] 2.16.840.1.093833.3.579.2 .462 Unknown [id number] 2.16.840.1.938187.3.579.2 .462 Unknown [id number] 2.16.840.1.154180.3.579.2 .462 Unknown [id number] 2.16.840.1.489204.3.579.2 .462 Unknown [id number] 2.16.840.1.331017.3.579.2 .462 Unknown [id number] 2.16.840.1.292180.3.579.2 .462 Unknown [id number] 2.16.840.1.763986.3.579.2 .462 Social History Date Type Detail Facility Start: 01-06-2021 End: 10-31-2023 Tobacco smoking status [facility] Unknown if ever smoked [facility] Start: 08-27-[address] [facility] Start: 03-18-2014 Spouse/ Signif icant Other [facility] Start: 06-20-2014 Non-smoker [facility] Start: 1945 Sex Assigned At Male [facility] Start: 04-05-2022 End: 04-12-2025 Tobacco smoking status NDIS Ex-smoker [facility] Work Phone: History of tobacco use Current smoker [facility] Work Phone: History of tobacco use Cigarette Smoker [facility] Work Phone: Start: 04-05-2022 Tobacco use and exposure Former smokeless tobacco user [facility] Work Phone: Start: 1945 Sex Assigned At Not on file [facility] Start: 03-26-2022 End: 04-05-2022 Exposure to SARS-CoV-2 (event) Not sure [facility] Work Phone: Start: 04-05-2022 History of Social function [facility] Start: 04-05-2022 Tobacco use panel [facility] Start: 10-30-2024 End: 04-13-2025 Sex Male (finding) [facility] Tobacco smoking status [facility] Medical Equipment Procedure Code Equipment Code [...] FDA Start: 06-08-2023 Bunionectomy FDA Start: 06-08-2023 ([id number]) [id number] [id number] FDA Start: 04-09-2025 ([id number]) [id number] [id number] [id number] FDA Start: 04-09-2025 ([id number]) [id number] [id number] 1)[id number] FDA Start: 04-09-2025 Goals Date Patient Goal Desired Activity /State Functional Status Date Assessment Result Facility 04-12-2025 Functional status Chair [facility] Work Phone: 04-10-2025 Functional status Stand and pivot [facility] Work Phone: 03-09-2025 Functional status Chair [facility] Work Phone: Mental Status Date Assessment Result Facility 04-12-2025 Cognitive function Voice[facility] Work Phone: 04-10-2025 Cognitive function Voice/Name [facility] Work Phone: 04-05-2025 Cognitive function Awake;Alert;A ppropriate;Follow s Commands [facility] Work Phone: 03-09-2025 Cognitive function Voice/Name [facility] Work Phone: 06-08-2023 Cognitive function Voice/Name [facility] Work Phone: 12-30-2022 Cognitive function Level Of Cons ciousness Awake;Alert;Appropriate;Follow s Commands [facility] Work Phone: 04-28-2022 Cognitive function Voice/Name [facility] Work Phone: 04-14-2022 Cognitive function Level Of Cons ciousness Awake;Appropriate;Follows Commands;Drowsy [facility] Work Phone: Clinical Notes 04-05-2022 to 04-18-2025 Note Date & Type Note Facility 04-18-2025 Note . MICRO - Microbiology PROCEDURE: Blood Culture [...] Locations *1: This test was performed at: [address], [facility]- , [facility] 04-18-2025 Note . MICRO - Microbiology PROCEDURE: Blood Culture [...] Locations *1: This test was performed at: [address], [address] [place] [address] 04-17-2025 Discharge summary Date of Service 04/17/2025 [...] nasal cannula presented as a transfer from [facility] for further evaluation of possible hydropneumothorax. Apparently, patient underwent pacemaker placement at [facility] last week , next day, patient was found to have pleural effusion and underwent thoracentesis and was admitted to rehab at [facility]. Patient found to have hypoxia and tachycardia [...] with cardiothoracic surgery, he was transferred to [facility]. Patient admitted to hospital service, started [...] Result Date: April 13, 2025 Verified By: BARTOLOME ZALDIVAR DO CLINICAL STATEMENT: IMPRESSION: Right-sided hydropneumothorax [...] tablet)500 Milligram by mouth every day. insulin [id number] unit(s) Subcutaneous daily at bedtime. metoprolol (metoprolol succinate 25 mg oral TABLET extended release)0.5 tab(s) by mouth two (2) times a day. Do not crush or chew (controlled release). multivitamin with minerals (Multi-Braden)1 tab by mouth every day. [id number] Milligram by mouth once a day. SITagliptin (Januvia 50 mg oral tablet)1 tab(s) by mouth once a day. tamsulosin (tamsulosin 0.4 mg oral capsule)1 cap by mouth once a day. umeclidinium-vilanterol (Anoro Ellipta 62.5 mcg-25 mcg/inh inhalation powder)1 puff(s) by inhalation once a day. Discontinued cefdinir (cefdinir 300 mg oral capsule)1 cap by mouth every 12 hours for 5 Days. zfbhnfSHEF15 Milligram by mouth two (2) times a day for 5 Days. Follow Up Follow Up with TONIO FAJARDO DO When:Within 1-2 days Where:[address] [place] [address]- Additional Information: Please call the office to [...] by JERO ROSARIO on 04/17/2025 01:18 PM [facility] 04-17-2025 Hospital Discharge instructions Patient Education [...] says it is okay. General instructions Take pysq-ukj-zbgrwiw and prescription medicines only as told by [...] 08/06/2006 Document Revised: 07/19/2018 Document Reviewed: 07/15/2018 [employer]App Patient Education 2020 [employer] Follow Up Care 04/13/2025 00:27:18 With:[facility] - [phone] Address:Unknown When:1-2 days With:TONIO FAJARDO DO Address: [address] [place], [place] [address] [address]- When:1-2 days Comments:Please call the office to schedule a hospital follow up appointment. [facility] 04-17-2025 Note Discharge Instructions Thank you for allowing [facility] to assist you with your healthcare needs. The following is important discharge information regarding your hospital visit. 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 General instructions Take pmgq-kwc-gawhtpc and prescription medicines only as told by [...] 08/06/2006 Document Revised: 07/19/2018 Document Reviewed: 07/15/2018 MyPrepApp Patient Education 2020 [employer]. Additional Information VACCINATE! IT SAVES LIVES! Members of the community who have not yet received the COVID-19 vaccine and would like to receive it can visit one of [facility] vaccine clinics. There are many vaccine clinic locations within the [facility]. For locations and available times, please visit https://gettheshot.coronavirus.[place] io.gov/. It is important to note that some COVID mobile vaccine clinics are held outdoors and may be canceled in rainy or stormy conditions. To learn more about pediatric vaccinations (ages 5-11), we invite you to visit the [facility] webpage. https://www.[facility].org/pa ges/3602-Zaqdd-Mnknqywczfy-Freque xylf-Chvzk-Hcalgrmvy.html To learn more about the COVID-19 vaccine, we invite you to visit the CDC website for a list of frequently asked questions.https://www.cdc.gov/cor on-ncov/vaccines/faq.h tml [facility] Patient Portal Access Instructions: Stay connected with your healthcare team and access your personal medical information anytime with the [facility] Patient Portal. Please follow the directions below to create your [facility] account: 1.Access the email account you provided upon registration to the hospital/physician office.2.Look for an invitation email from [facility].3.Open the email and access the invitation link: Accept Invitation to [facility].4.Fill in the required johnson to create your account. To access your account, visit [employer]. Click the blue button labeled Access Patient [...] you will allow to register on the [facility] Patient Portal for access to your information. You can also access the [facility] Patient Portal on the [employer] jayleen. Simply click on Patient Portal and then log into your account. If you would like to receive a full copy of your medical records, please contact the [facility] Medical Records Department by calling [phone], Sunday through Sunday between 8 a.m. and [...] Call your local pharmacy or go to http://bit.TBi Connect/3U8Xr0j to find one close to you.3.Make use of household items: Use cat litter or old coffee grounds to dispose medications if other options are not available. Mix your drugs with these household products, seal them in an airtight container and throw it into the garbage. Call [facility]: [phone] to be sure your drugs can be [...] aware that I should contact my doctor. Patient/Pharmacist In Charge Signature: Date/Time: Relationship to Patient: ____ Witness Name/Signature: Date/Time: [facility] 04-17-2025 Note Discharge Instructions Thank you for allowing [facility] to assist you with your healthcare needs. The following is important discharge information regarding your hospital visit. 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 pacemaker in situ Chronic anemia CKD (chronic kidney disease) COPD with hypoxia Diabetes Diastolic heart failure Elevated troponin HLD (hyperlipidemia) HTN (hypertension) PAD (peripheral artery disease) Peripheral neuropathy Pneumonia Right Hydropneumothorax What to do next Follow Up Appointments Follow Up with Waqar [facility] [phone] When:Within 1-2 days Follow Up with TONIO FAJARDO DO When:Within 1-2 days Where:[address] [place] [address]- Additional Information: Please call the office to [...] Signed By - Ordered -- 04/17/25 13:13:00 EDTAFUA SETH DO Transfer of Care Oxygen Therapy - [...] to receive it can visit one of [facility] vaccine clinics. There are many vaccine clinic locations within the [facility]. For locations and available times, please visit https://gettheshot.coronavirus.in io.gov/. It is important to note that some COVID mobile vaccine clinics are held outdoors and may be canceled in rainy or stormy conditions. To learn more about pediatric vaccinations (ages 5-11), we invite you to visit the [facility] webpage. https://www.Viewpointss.org/pa ges/2100-Vilga-Stiudxfwsjt-Freque kgdo-Btpqc-Rbvcyazzc.html To learn more about the COVID-19 vaccine, we invite you to visit the CDC website for a list of frequently asked questions.https://www.cdc.gov/cor onavirus/2019-ncov/vaccines/faq.h tml [facility] Patient Portal Access Instructions: Stay connected with your healthcare team and access your personal medical information anytime with the [facility] Patient Portal. Please follow the directions below to create your [facility] account: 1.Access the email account you provided upon registration to the hospital/physician office.2.Look for an invitation email from [facility].3.Open the email and access the invitation link: Accept Invitation to [facility].4.Fill in the required johnson to create your account. To access your account, visit [employer]danist. Click the blue button labeled Access Patient [...] you will allow to register on the [facility] Patient Portal for access to your information. You can also access the [facility] on the [facility] jayleen. Simply click on Patient Portal and then log into your account. If you would like to receive a full copy of your medical records, please contact the [facility] Medical Records Department by calling [phone], Sunday through Sunday between 8 a.m. and [...] Call your local pharmacy or go to http://[employer].TBi Connect/9C4Hu1y to find one close to you.3.Make use of household items: Use cat litter or old coffee grounds to dispose medications if other options are not available. Mix your drugs with these household products, seal them in an airtight container and throw it into the garbage. Call [facility]: [phone] to be sure your drugs can be [...] aware that I should contact my doctor. Patient/Pharmacist In Charge Signature: Date/Time: Relationship to Patient: ____ Witness Name/Signature: Date/Time: [facility] 04-17-2025 Discharge summary Date of Service [...] nasal cannula presented as a transfer from [facility] for further evaluation of possible hydropneumothorax. Apparently, patient underwent pacemaker placement at [facility] last week , next day, patient was found to have pleural effusion and underwent thoracentesis and was admitted to rehab at [facility]. Patient found to have hypoxia and tachycardia [...] with cardiothoracic surgery, he was transferred to [facility]. Patient admitted to hospital service, started [...] Result Date: April 13, 2025 Verified By: BARTOLOME ZALDIVAR DO CLINICAL STATEMENT: IMPRESSION: Right-sided hydropneumothorax [...] tablet)500 Milligram by mouth every day. insulin [id number] unit(s) Subcutaneous daily at bedtime. metoprolol (metoprolol succinate 25 mg oral TABLET extended release)0.5 tab(s) by mouth two (2) times a day. Do not crush or chew (controlled release). multivitamin with minerals (Multi-Braden)1 tab by mouth every day. Milligram by mouth once a day. SITagliptin (Januvia 50 mg oral tablet)1 tab(s) by mouth once a day. tamsulosin (tamsulosin 0.4 mg oral capsule)1 cap by mouth once a day. umeclidinium-vilanterol (Anoro Ellipta 62.5 mcg-25 mcg/inh inhalation powder)1 puff(s) by inhalation once a day. Discontinued cefdinir (cefdinir 300 mg oral capsule)1 cap by mouth every 12 hours for 5 Days. [id number] Milligram by mouth two (2) times a day for 5 Days. Follow Up Follow Up with TONIO FAJARDO DO When:Within 1-2 days Where:[address] [place] [address]- Additional Information: Please call the office to [...] by JERO ROSARIO on 04/17/2025 01:18 PM [facility] 04-17-2025 Note Exam Date Time Procedure Performing Provider Status 04/17/25 7:03 AM XR Chest 1 View KRISTEN MAKI MD; Jasmin stephens (Verified) [id number] ORIGINAL EXAMINATION: ONE XRAY VIEW OF THE CHEST 04/17/2025 7:03 am COMPARISON: None. HISTORY: ORDERING SYSTEM PROVIDED HISTORY: Reason for Exam: Pleural effusion FINDINGS: Mild congestion/edema suspected with small bilateral effusions. Stable cardiomegaly. Left-sided cardiac pacer device is in place. No pneumothorax is identified. IMPRESSION: Mild congestion/edema with small bilateral effusions. Interpreted by: Kristen Maki MD Preliminary Report By: Kristen Maki MD Electronically signed By Kristen Maki MD Dictated Date: 04/17/2025 8:00:40 AM Prelim Date: 04/17/2025 8:12:37 AM Sign Date: 04/17/2025 8:12:37 AM Ordering Provider: GLORIA DAVIS [id number] NoteORIGINAL PROCEDURE: ULTRASOUND GUIDED THORACENTESIS CLINICAL STATEMENT: [...] Date: 04/16/2025 5:19:34 PM Ordering Provider: GLORIA [facility] [id number] Note Date of Service 04/16/2025 Chief Complaint [...] nasal cannula presented as a transfer from [facility] for further evaluation of possible hydropneumothorax. Apparently, patient underwent pacemaker placement at [facility] last week , next day, patient was found to have pleural effusion and underwent thoracentesis and was admitted to rehab at [facility]. Patient found to have hypoxia and tachycardia [...] with cardiothoracic surgery, he was transferred to [facility]. Patient admitted to hospital service, started [...] (INT), qDay emollients (Eucerin Cream) 30gm 1 jayleen, Topical, BID furosemide 40 mg tablet 40 [...] fibrillation BPH (benign prostatic hyperplasia) CAD in citizen [place] artery s/p CABG Cardiac pacemaker in situ [...] by weight. Plan for [facility] back to prison facility hopefully next 24-48 hours if he [...] GLORIA DAVIS MD on 04/16/2025 01:33 PM [id number] Pulmonary Consult note Date of Service 04/16/2025 [...] The patient underwent a thoracentesis here at [facility] showing undetectable protein and a slightly [...] fibrillation BPH (benign prostatic hyperplasia) CAD in citizen [place] artery s/p CABG Cardiac pacemaker in situ [...] fibrillation BPH (benign prostatic hyperplasia) CAD in citizen [place] artery Cardiac pacemaker in situ Chronic anemia [...] Inhalation, q4hRT, PRN Eucerin topical cream, 1 jayleen, Topical, BID guaiFENesin, 1200 mg= 2 tab(s), [...] ABBI CARMEN MD on 04/16/2025 01:14 PM [id number] Note. MICRO - Microbiology PROCEDURE: Acid Fast Bacilli Culture w Stain if Ind [*1] SOURCE: Thoracentesis Fluid BODY SITE: COLLECTED DATE/TIME: 04/15/2025 08:52 EDT RECEIVED DATE/TIME: 04/15/2025 14:18 EDT START DATE/TIME: 04/15/2025 14:18 EDT FREE TEXT SOURCE: STAINS AFS [] Verified Date/Time/Personnel: 04/16/2025 12:33 EDT Acid Fast Smear from Concentrated Specimen: Negative Performing Locations *1: This test was performed at: [address], [address] [place], [place] [address]808-28-2025 Note. MICRO - Microbiology PROCEDURE: Fungal Culture with Stain if Ind [*1] SOURCE: Thoracentesis Fluid BODY SITE: COLLECTED DATE/TIME: 04/15/2025 08:52 EDT RECEIVED DATE/TIME: 04/15/2025 14:18 EDT START DATE/TIME: 04/15/2025 14:18 EDT FREE TEXT SOURCE: STAINS FUNSM [] Verified Date/Time/Personnel: 04/16/2025 12:32 EDT No fungal elements observed by calcofluor white stain. Performing Locations *1: This test was performed at: [address], [facility] , [facility]08-28-2025 Nurse Progress note I was ambulating the [...] by [place] on 04/16/2025 10:23 AM [id number] Note. MICRO - Microbiology PROCEDURE: Culture Body [...] Locations *1: This test was performed at: [facility], [address] [place] [address], [address] , [facility]08-27-2025 Note Date of Service 04/15/2025 Chief Complaint [...] nasal cannula presented as a transfer from [facility] for further evaluation of possible hydropneumothorax. Apparently, patient underwent pacemaker placement at [facility] last week , next day, patient was found to have pleural effusion and underwent thoracentesis and was admitted to rehab at [facility]. Patient found to have hypoxia and tachycardia [...] with cardiothoracic surgery, he was transferred to [facility]. Patient admitted to hospital service, started [...] Intake 1527.51 Total Output 3600.00 Fluid Balance -2071.49 Physical Exam General: Patient is not in [...] (INT), qDay emollients (Eucerin Cream) 30gm 1 jayleen, Topical, BID furosemide 40 mg tablet 40 [...] fibrillation BPH (benign prostatic hyperplasia) CAD in citizen [place] artery s/p CABG Cardiac pacemaker in situ [...] ceftriaxone for pneumonia. Atypical screen was negative. Azithromycinhas been discontinued. Screen negative, azithromycin can be [...] by weight. Plan for discharge back to prison facility once medically stable. No family at [...] GLORIA DAVIS MD on 04/15/2025 04:24 PM [id number] Note* Exam Date Time Procedure Performing Provider Status 04/15/25 11:36 AM XR Chest 1 View SHAHBAZ FOLEY MD; Aut h (Verified) [id number] ORIGINAL EXAMINATION: ONE XRAY VIEW OF THE [...] 04/15/2025 11:43:46 AM Ordering Provider: OLAMIDE GONZALEZ [id number] Note* Exam Date Time Procedure Performing Provider Status 04/15/25 11:35 AM US Thoracentesis Right NUNO GIBSON Smith; Auth (Verified) [id number] ORIGINAL PROCEDURE: ULTRASOUND GUIDED THORACENTESIS CLINICAL STATEMENT: [...] Date: 04/16/2025 5:19:34 PM Ordering Provider: GLORIA DAVIS [id number] Note US Procedure Record Summary Primary Physician: OLAMIDE GONZALEZ PA-C Finalized Date/Time: 04/15/25 11:32:18 Pt. Name: PEDRO HILLMAN/Sex: 1945 Male Med Rec #: [id number] Physician: DAVID STERLING MD Financial #: [id number] Pt. Type: I [facility]: [facility]/13/25 05:27:00 - Institution: Allergies identified in patient's electronic medical record at time of printing on 04/15/25 Entry 1 Substance ibuprofen Reaction Type Allergy Last Modified By: KHURRAM Merchant 04/13/25 06:04:52 Case Attendance- US Entry 1 Entry 2 Case Attendee OLAMIDE GONZALEZ Lauren M PA-C Role Performed Primary Surgeon Kayak Maker Details Time In 04/15/25 11:08:00 04/15/25 11:08:00 [...] Kind Specimen Type Fluid Last Modified By: Micheala Barnard 04/15/25 11:15:34 General Case Data- US Entry 1 Case Information Room [facility] Receiving Case Level IR Level 2 Wound Class None Specialty SN Radiology Procedure ASA Class None Diagnosis Preop Diagnosis pleural eff Postop Same As Preop Yes Postop Diagnosis pleural eff Last Modified By: Michaela Barnard 04/15/25 11:16:10 Medication Administration- US Entry 1 Medication 2% Lidocaine Route of Admin Local Dose 8 VORB Administered by Yes Administered by: OLAMIDE GONZALEZ Physician? PAAlexC Last Modified By: Michaela Barnard 04/15/25 11:15:23 [...] instrumentation, sponges, or sharps). Outcomes Met? Yes Juvenile Officer OLAMIDE GONZALEZ Completing ROGER Procedure Plan Last Modified By: Michaela Barnard 04/15/25 11:16:00 Radiology Lines and Procedures- US Entry 1 Radiology Sedation Case Times Sedation Total Time 0 Radiology - Fluid/Drainage Fluid Amount mL: 1000 ml Fluid Description [facility] - [place], Guidewires, Cath.... Catheters OneStep Catheter 5 Fr [...] Verfied ID Band on OLAMIDE GONZALEZ by ROGER, Michaela Barnard Last Modified By: Michaela Barnard 04/15/25 11:25:00 Case Comments Finalized By: Michaela Barnard Document Signatures Signed By: Michaela Barnard 04/15/25 11:32 [id number] NoteBody Fluid Path ReviewNegative for malignant cells. [...] sided permanent pacemaker on , 04/09/2025 at [facility]. The following day, he had a chest x-ray completed revealing a right pleural effusion and underwent a thoracentesis(amount of volume removed unknown). He was discharged to [facility] same day. While at rehab facility, he was noted to be hypoxic and tachycardic and a chest x-ray was completed showing aright pneumothorax. He was taken to [place] emergency room where he was further evaluated [...] on 100% nonrebreather mask, and transferred to [facility] for further evaluation. Cardiothoracic surgery has been [...] Result Date: April 13, 2025 Verified By: BARTOLOME ZALDIVAR DO CLINICAL STATEMENT: IMPRESSION: Right-sided hydropneumothorax is likely not significantly changed with approximately 6 mm of apical pleural separation. No significant change in right perihilar/suprahilar consolidation concerning for pneumonia. Stable small left pleural effusion with adjacent hazy airspace disease. Assessment/Plan 1. Right Hydropneumothorax CT of the chest completed at [facility] on 04/12/2025 showing right loculated hydropneumothorax [...] Dr. Wagoner via phone. Please see Dr. Wagnoer's addendum to follow. 2. Pneumonia CT of the chest completed at [facility] on 04/12/2025 showed apical and some [...] anemia 13. HTN (hypertension) 14. 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 Diastolic heart failure 16. COPD with hypoxia 48 minutes of independent JAYLEEN time spent obtaining past medical history from EMR, conducting [facility] to request CT of the chest imaging, completing teco-lz-ybzj visit with patient at bedside, obtaining physical exam, and dictating details of today's consultation. Problem List/Past Medical History Ongoing Atrial fibrillation BPH (benign prostatic hyperplasia) CAD in [place] artery Cardiac pacemaker in situ Chronic anemia [...] by COLLEEN DOE on 04/13/2025 03:08 PM [facility] [id number] Note* Exam Date Time Procedure Performing Provider Status 04/15/25 6:48 AM XR Chest 1 View LEVI MARCIAL MD; Auth (Verified) [id number] ORIGINAL EXAMINATION: ONE XRAY VIEW OF THE [...] Date: 04/15/2025 7:22:03 AM Ordering Provider: GLORIA [facility]08-26-2025 Note* Exam Date Time Procedure Performing Provider Status 04/14/25 9:03 PM Electrocardiogram - EKG - CV JOSE GUADALUPEP BRAYAN JARAMILLO MD; Auth (Verified) ECG Final Report SINUS TACHYCARDIA VENTRICULAR PREMATURE COMPLEX RIGHT BUNDLE BRANCH BLOCK Electronic Signature: BRAYAN FRANCO MD 04/15/2025 22:51:41 [facility] HospitalLuhmahhu69-21-2381 Note Date of Service 04/14/2025 Chief Complaint Follow-up with right-sided hydropneumothorax, pneumonia XR Chest 1 View Result Date: April 14, 2025 Verified By: AGGIE STRATTON, LEVI Lozano CLINICAL STATEMENT: IMPRESSION: 1. Moderate pulmonary edema.2. Small left pleural effusion and moderate right pleural effusion.3. Small right apical pneumothorax. 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 Discussed with cardiothoracic surgery DIRECTOR OF DIETARY. Will give one-time dose of IV Lasix [...] for now. [facility] once medically [facility]. Note was dictated [...] GLORIA DAVIS MD on 04/14/2025 04:44 PM [facility] HospitalChhjfeex68-87-1908 Note. MICRO - Microbiology PROCEDURE: Legionella Urine [...] Locations *1: This test was performed at: [address], [address] , [facility] [id number] Note. MICRO - Microbiology PROCEDURE: Streptococcus Pneumoniae [...] Locations *1: This test was performed at: [address], [address] , [facility] [id number] Note* Exam Date Time Procedure Performing Provider Status 04/14/25 6:55 AM XR Chest 1 View LEVI MARCIAL MD; Auth (Verified) [id number] ORIGINAL EXAMINATION: ONE XRAY VIEW OF THE [...] 04/14/2025 7:00:29 AM Ordering Provider: COLLEEN DOE [facility] HospitalToaqawwg20-01-1593 History and physical note [facility] Medicine Hospitalist History and Physical Date of Admission: patient is being admitted on April 13, 2025 Chief complaint: pneumothorax History of present illness: History was taken from talking with the emergency room physician at [facility] as well as talking with the [...] the patient had a pacemaker placed at [facility]. On Sunday of this past week the patient was found to have pleural effusion and had a thoracentesis. The patient was admitted to rehab at [facility]. Yesterday the patient had episodes of [...] CT chest without contrast showed right loculated [place] pneumothorax of estimated 15% of the right thoracic volume occupied by air. Patches of dense consolidating right pneumonia. Sizable peripheral blebs and honeycombing in the left mid and base. Prior to transfer they did discuss the case with cardiothoracic surgery advertising consultant and the patient wasgiven vancomycin and Zosyn. [...] Vitals Signs(Last 24 hrs)__Last Charted Minimum Maximum FRI287(APR 13 05:28)135(APR 13 05:28)135(APR 13:28) DBP78(APR 13:28)78(APR 13 05:28)78(APR 13:28) Physical examination: HEENT: No Pallor, No Icterus Cardiac: tachycardia, No murmur Lungs: diffuse crackles in respiratory stress Abdomen: Soft Non tender Musculoskeletal: No joint pains or swelling Extremities: No edema, good pulses Neurological: Alert, no deficits Skin: No rash, no nodules Labs: as mentioned in the HPI. Assessment and plan: Patient presents from [facility] on April 13, 2025 due to [...] DAVID STERLING MD on 04/13/2025 05:49 AM [facility] HospitalYiydxeaz17-12-7114 Respiratory therapy Hospital Progress note Respiratory Therapy Evaluation Entered On: 04/13/2025 15:23 EDT Performed On: 04/13/2025 15:22 EDT by Summer Hankins Respiratory Therapy Evaluation Pulmonary Status : Chronic [...] or atelectasis in one lobe Summer Hankins - 04/13/2025 15:22 EDT Digitally Signed by Summer Hankins on 04/13/2025 04:09 PM [facility] [id number] Cardiothoracic surgery Consult note Date of Service [...] sided permanent pacemaker on , 04/09/2025 at [facility]. The following day, he had a chest x-ray completed revealing a right pleural effusion and underwent a thoracentesis(amount of volume removed unknown). He was discharged to [facility] same day. While at rehab facility, he was noted to be hypoxic and tachycardic and a chest x-ray was completed showing aright pneumothorax. He was taken to [place] emergency room where he was further evaluated [...] on 100% nonrebreather mask, and transferred to [facility] for further evaluation. Cardiothoracic surgery has been [...] Result Date: April 13, 2025 Verified By: BARTOLOME ZALDIVAR DO CLINICAL STATEMENT: IMPRESSION: Right-sided hydropneumothorax is likely not significantly changed with approximately 6 mm of apical pleural separation. No significant change in right perihilar/suprahilar consolidation concerning for pneumonia. Stable small left pleural effusion with adjacent hazy airspace disease. Assessment/Plan 1. Right Hydropneumothorax CT of the chest completed at [facility] on 04/12/2025 showing right loculated hydropneumothorax [...] Pneumonia CT of the chest completed at [facility] on 04/12/2025 showed apical and some [...] anemia 13. HTN (hypertension) 14. 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 Diastolic heart failure 16. COPD with hypoxia 48 minutes of independent JAYLEEN time spent obtaining past medical history from EMR, conducting [facility] to request CT of the chest imaging, completing mjnh-yz-xecz visit with patient at bedside, obtaining physical exam, and dictating details of today's consultation. Problem List/Past Medical History Ongoing Atrial fibrillation BPH (benign prostatic hyperplasia) CAD in [place] artery Cardiac pacemaker in situ Chronic anemia [...] by COLLEEN DOE on 04/13/2025 03:08 PM [facility] [id number] Note* Exam Date Time Procedure Performing Provider Status 04/13/25 2:42 PM XR Chest 1 View BARTOLOME ZALDIVAR DO; [facility] (Verified) [id number] ORIGINAL EXAMINATION: ONE XRAY VIEW OF THE [...] 04/13/2025 2:58:50 PM Ordering Provider: COLLEEN DOE [facility] HospitalCapewzdf72-72-1239 Evaluation + Plan noteExtracted from: Title:Clinical Document Author:DAVID STERLING MD Date:04/13/25 [facility] Hospitalist History and Physical Date of Admission: patient is being admitted on April 13, 2025 Chief complaint: pneumothorax History of present illness: History was taken from talking with the emergency room physician at [facility] as well as talking with the [...] the patient had a pacemaker placed at [facility]. On Sunday of this past week the patient was found to have pleural effusion and had a thoracentesis. The patient was admitted to rehab at [facility]. Yesterday the patient had episodes of [...] CT chest without contrast showed right loculated [place] pneumothorax of estimated 15% of the right thoracic volume occupied by air. Patches of dense consolidating right pneumonia. Sizable peripheral blebs and honeycombing in the left mid and base. Prior to transfer they did discuss the case with cardiothoracic surgery advertising consultant and the patient was given vancomycin and [...] Vitals Signs(Last 24 hrs)__Last Charted Minimum Maximum XLX248(APR 13 05:28)135(APR 13 05:28)135(APR 13 05:28) DBP78(APR 13 05:28)78(APR 13 05:28)78(APR 13:28) Physical examination: HEENT: No Pallor, No Icterus Cardiac: tachycardia, No murmur Lungs: diffuse crackles in respiratory stress Abdomen: Soft Non tender Musculoskeletal: No joint pains or swelling Extremities: No edema, good pulses Neurological: Alert, no deficits Skin: No rash, no nodules Labs: as mentioned in the HPI. Assessment and plan: Patient presents from [facility] on April 13, 2025 due to [...] 6:40 EDT medications will need reconciled once are verified Addendum by GLORIA DAVIS MD on April 13, 2025 22:53 EDT Patient was seen and examined again by silvana melendez later today. Denies any change in his [...] care with patient and family at bedside. [facility] 08-25-2025 Note Reason for Consultation Admission [...] Other: Medihoney/adaptic/foam to right knee. Betadine to xtdtx8sb, and 4th toes. Eucerin cream to BLE. Education Individuals Taught: Patient Learning Readiness: Willing to learn Barriers to Learning: Acuity of illness Teaching Method: Explanation Digitally Signed by Carol Galvin RN on 04/13/2025 01:26 PM [facility] HospitalJetdwsgk95-22-4276 [facility]08-25-2025 History and physical note [facility] Hospitalist History and Physical Date of Admission: patient is being admitted on April 13, 2025 Chief complaint: pneumothorax History of present illness: History was taken from talking with the emergency room physician at [facility] as well as talking with the [...] the patient had a pacemaker placed at [facility]. On Sunday of this past week the patient was found to have pleural effusion and had a thoracentesis. The patient was admitted to rehab at [facility]. Yesterday the patient had episodes of [...] CT chest without contrast showed right loculated [place] pneumothorax of estimated 15% of the right thoracic volume occupied by air. Patches of dense consolidating right pneumonia. Sizable peripheral blebs and honeycombing in the left mid and base. Prior to transfer they did discuss the case with cardiothoracic surgery advertising consultant and the patient wasgiven vancomycin and Zosyn. [...] Vitals Signs(Last 24 hrs)__Last Charted Minimum Maximum [id number](APR 13 05:28)135(APR 13 05:28)135(APR 13 05:28) DBP78(APR 13 05:28)78(APR 13 05:28)78(APR 13:28) Physical examination: HEENT: No Pallor, No Icterus Cardiac: tachycardia, No murmur Lungs: diffuse crackles in respiratory stress Abdomen: Soft Non tender Musculoskeletal: No joint pains or swelling Extremities: No edema, good pulses Neurological: Alert, no deficits Skin: No rash, no nodules Labs: as mentioned in the HPI. Assessment and plan: Patient presents from [facility] on April 13, 2025 due to [...] DAVID STERLING MD on 04/13/2025 05:49 AM [facility] HospitalJivflgpv73-76-4619 History and physical note [facility] Hospitalist History and Physical Date of Admission: patient is being admitted on April 13, 2025 Chief complaint: pneumothorax History of present illness: History was taken from talking with the emergency room physician at [facility] as well as talking with the [...] the patient had a pacemaker placed at [facility]. On Sunday of this past week the patient was found to have pleural effusion and had a thoracentesis. The patient was admitted to rehab at [facility]. Yesterday the patient had episodes of [...] CT chest without contrast showed right loculated [place] pneumothorax of estimated 15% of the right thoracic volume occupied by air. Patches of dense consolidating right pneumonia. Sizable peripheral blebs and honeycombing in the left mid and base. Prior to transfer they did discuss the case with cardiothoracic surgery advertising consultant and the patient wasgiven vancomycin and Zosyn. [...] Vitals Signs(Last 24 hrs)__Last Charted Minimum Maximum OSI091(APR 13 05:28)135(APR 13 05:28)135(APR 13 05:28) DBP78(APR 13 05:28)78(APR 13 05:28)78(APR 13:28) Physical examination: HEENT: No Pallor, No Icterus Cardiac: tachycardia, No murmur Lungs: diffuse crackles in respiratory stress Abdomen: Soft Non tender Musculoskeletal: No joint pains or swelling Extremities: No edema, good pulses Neurological: Alert, no deficits Skin: No rash, no nodules Labs: as mentioned in the HPI. Assessment and plan: Patient presents from [facility] on April 13, 2025 due to [...] DAVID STERLING MD on 04/13/2025 05:49 AM [facility] [id number] Discharge summary Author Daniel Brownlee [facility] Note Date/Time April 13, 2025 12 :09am [facility] Medical Records Department [address] [place] [address] Emergency Department Summary 04/12/25 MR#: [id number] Acct: [id number] Name: PEDRO HILLMAN Rep #:[id number] : 1945 80 From: Daniel Brownlee DO PCP: Dr. Tonio Fajardo DO Status:REG ER [...] complaints himself at this point in time. PFSH [facility] Medical History Presence of cardiac pacemaker Peripheral arterial disease Other persistent atrial fibrillation New onset atrial flutter COVID Wears hearing aid in both ears Former smoker Coronary artery disease Peripheral vascular occlusive disease BPH (benign prostatic hyperplasia) Chronic kidney disease, stage 3 Atherosclerosis of coronary artery of [place] heart without angina pectoris Hyperlipidemia Lower extremity [...] s 04/08/25 Unknown Rx OXYGEN - Supplemental ([facility] 04/09/25 Unknown History INFORMATIONAL USE ONLY) Allergy/AdvReac [...] following commands knew that he was at [facility] the year is 2024 Skin: Warm, [...] with a rate of 111 bpm with VA interval of 86. Patient's proBNP elevated 7022. [...] transfer giventhe complex pneumothorax. Discussed case with [facility] physician Dr. Sterling who accept patient [...] 92.5 H Lymph % (Auto) 2.5 L [place] % (Auto) 4.2 Eos % (Auto) 0.0 [...] left mid zone and base. Reading [facility] Discharge Plan Triage Chief Complaint: Shortness of Breath ED Provider: aDniel Brownlee Dx/Rx/DC Orders Clinical Impression: Pneumothorax, right, [...] Qty: 60 0RF (DME) OXYGEN - Supplemental ([facility] INFORMATIONAL USE ONLY) Gas See Rx Instructions .ROUTE Patient Comments: 2 lpm at rest, 3 lpm on exertion, 2 lpm at HS DME company: [employer] per Rx Instructions: As directed metoprolol succinate 25 mg tablet extended release 24 hr 12.5 mg PO BID Qty: 90 3RF Primary Care Provider: Tonio Fajardo Referrals: Tonio Fajardo DO [Primary Care Provider] - Print Language: Guatemalan Disposition Disposition: DC/Tx to Another Type of HCF What to do if you have Problems For any increased pain, shortness of breath, bleeding, nausea or vomiting, chestpain, or any unexpected problems, contact your Primary Care Provider. Call [facility] ([phone]) or report to the closest Emergency Room. Call 911 if necessary. 04/13/25 0009 <Electronically signed by Daniel Brownlee DO> Cosigner Signature (if applicable): CC: Dr. Tonio Fajardo DO ~ Signed [facility] Work Phone: 1(125) 767-148708-24-2025 Radiology Diagnostic study [facility]08-24-2025 Radiology Diagnostic study [facility]08-22-2025 History and physical note Author Valdez Olivo [facility] Note Date/Time April 10, 2025 8: 47pm [facility] Medical Records Department [address] [place] [address] History & Physical Exam 04/10/252025 MR#: [id number] Acct: [id number] Name: PEDRO HILLMAN Rep #:[id number] : 1945 80 From: Valdez Olivo MD PCP: Dr. Tonio Fajardo DO Status:ADM IN Location: [facility] TCU02-1 HPI - General General Date of Admission: 04/10/25 Date of Service: 04/10/25 Chief Complaint: Here for rehabilitation. HPI Narrative PEDRO HILLMAN, is a 80 Male who presents with followin04/05/2025 [facility] ED Hypotension. Worsening productive cough, copd, history [...] given. Insulin/glucose for hyperkalemia 5.8. 04/05/2025 Admit [facility]. Lasix 40mg iv bid, Magnesium, albumin for [...] rehabilitation, strengthening, prior to discharge home alone. [facility] Medical History (Updated 04/10/25 @ 20:[address] Valdez Olivo MD) Presence of cardiac pacemaker Peripheral arterial disease Other persistent atrial fibrillation New onset atrial flutter COVID Wears hearing aid in both ears Former smoker Coronary artery disease Peripheral vascular occlusive disease BPH (benign prostatic hyperplasia) Chronic kidney disease, stage 3 Atherosclerosis of coronary artery of [place] heart without angina pectoris Hyperlipidemia Lower extremity [...] s 04/08/25 Unknown Rx OXYGEN - Supplemental ([facility] 04/09/25 Unknown History INFORMATIONAL USE ONLY) Allergy/AdvReac [...] Fajardo DO; Dr. Valdez Olivo MD~ Signed [facility] Work Phone: 1(818) 189-482308-22-2025 [facility]08-22-2025 Discharge summary Author Nicola Roman [facility] Note Date/Time April 10, 2025 4: 10pm [facility] Medical Records Department [address] [place] [address] Transfer to [facility] MR#: [id number] Acct: [id number] Name: PEDRO HILLMAN Rep #:[id number] : 1945 80 From: Nicola Roman MD PCP: Dr. Tonio Fajardo DO Status:ADM IN Certification of patient admission REQUIRED AT TIME OF ADMISSION. I CERTIFY THAT POST-HOSPITAL ECF SERVICES ARE REQUIRED TO BE GIVEN ON AN IN-PATIENT BASIS BECAUSE OF THE ABOVE NAMED PATIENT'S NEED FOR SHELTER CARE ON A CONTINUING BASIS FOR THE CONDITION(S) FOR WHICH HE/SHE WAS RECEIVING IN-PATIENT HOSPITAL SERVICES PRIOR TO HIS/HER TRANSFER TO THE [facility]. 04/10/25 1610<Electronically signed by Nicola Roman MD> [...] treated with radiation therapy currently followed by [facility] oncology and will start 8. Chronic persistent [...] 2RF No Action (DME) OXYGEN - Supplemental ([facility] INFORMATIONAL USE ONLY) Gas See Rx [...] Order can be placed): Home, Self Care 04/10/251609 <Electronically signed by Nicola Roman MD> Cosigner Signature (if applicable): CC: Dr. Issa Looney MD; Dr. Nicola Lindsey DO; Dr. Davon Saravia MD; Dr. Tonio Fajardo DO; Dr. Deric Lantigua MD ~ [facility] Work Phone: 1(268) 572-219208-22-2025 Discharge summary Author Nicola Roman [facility] Note Date/Time April 10, 2025 4: 23pm [facility] Medical Records Department [address] [place] [address] Discharge Summary 04/10/251609 MR#: [id number] Acct: [id number] Name: PEDRO HILLMAN Nora Rep #:[id number] : 1945 80 From: Nicola Roman MD PCP: Dr. Tonio Fajardo, DO Status:ADM IN [facility] Prov[facility] Date of Admission: 04/05/25 Date of Discharge: 04/10/25 Primary Care Physician: Dr. Tonio Fajardo, DO Consultations 04/05/25 20:36 Consult: Nephrology Routine Consulting Provider: Davon Saravia Reason for Consult: CKD; stage IV with Hyperkalemia and AE CHF. EMERGENT Consult: No MD Notified: Yes Date Notified: 04/06/25 Time Notified: 06:58 Method of Notification: Answering Service 04/06/25 07:14 Consult: Onc/Wound/ep specialist Routine Comment: Reason for Consult:: burn R thigh 04/08/25 15:38 Consult: Cardiology Routine Consulting Provider: Issa Looney Reason for Consult: Sinus pauses EMERGENT Consult: No Notified: Yes Date Notified: 04/08/25 Time Notified: [...] treated with radiation therapy currently followed by [facility] oncology and will start 8. Chronic persistent [...] BID #10 tabs 04/08/25 OXYGEN - Supplemental ([facility] INFORMATIONAL USE ONLY) 04/09/25 Physical Exam [...] (Auto) 91.6 H, Lymph % (Auto) 1.9L, [place] % (Auto) 5.5, Eos % (Auto) 0.0, [...] pleural effusions consistent with CHF. Reading Location[facility] Chest [facility] 04/10/25 07:49 IMPRESSION: Coronary artery calcification (CAC) is is present Moderate right pleural effusion with compressive atelectasis in the right lower lobe as well as airspace disease in the right upper lobe with volume loss. Small left pleural effusion with left basilar atelectasis. Findings suggestive of CHF. Reading Location: [facility] Thoracentesis Ultrasound 04/10/25 09:12 IMPRESSION: Successful diagnostic and therapeutic ultrasound-guided right thoracentesis. Laboratory results pending. Reading Location: [facility] D/C Instructions Call your doctor if you [...] 2RF No Action (DME) OXYGEN - Supplemental ([facility] INFORMATIONAL USE ONLY) Gas See Rx Instructions .ROUTE Patient Comments: 2 lpm at rest, 3 lpm on exertion, 2 lpm at HS DME company: [employer] Rx Instructions: As directed Referrals / Follow Up: Carol Sousa [Registered Nurse] - 04/21/25 10:00 am ( FOLLOW UP PACER AND WOUNDCHECK ) Tonio Fajardo DO [Primary Care Provider] - Within 1 Week Disposition Disposition (needs filled in before D/C Order can be placed): Home, Self Care Charges/Coding Visit Charges Inpatient E&M: 79766 Disch Hosp >30min 04/10/25 1623 <Electronically signed by Nicola Roman MD> Cosigner Signature (if applicable): CC: Dr. Nicola Roman MD; Dr. Tonio Fajardo DO~ Signed [facility] Work Phone: 1(759) 564-558708-22-2025 [facility]08-22-2025 Radiology Diagnostic study [facility]08-22-2025 Hospital Discharge instructionsAdditional Instructions Date of Discharge: 04/10/25[facility] Work Phone: 1(420) 752-320108-22-2025 Progress note Author Nicola Roman [facility] Note Date/Time April 10, 2025 9: 18am [facility] Medical Records Department [address] [place] [address] Progress Note - Hospitalist 04/10/25 0750 MR#: [id number] Acct: [id number] Name: PEDRO HILLMAN Rep #:[id number] : 1945 80 From: Nicola Roman MD PCP: Dr. Tonio Fajardo, DO Status:ADM IN Location: [place] [id number]- [id number] Reason for Visit Chief Complaint: SOB, [...] (Auto) 91.6 H, Lymph % (Auto) 1.9L, [place] % (Auto) 5.5, Eos % (Auto) 0.0, [...] pleural effusions consistent with CHF. Reading Location: [facility] Physical Exam Narrative S GENERAL: dyspneic at [...] treated with radiation therapy currently followed by [facility] oncology and will start 8. Chronic persistent [...] 52 Minutes Charges/Coding Visit Charges Inpatient E&M: 35844 Subs Hosp 04/10/25 0918 <Electronically signed by Nicola Roman MD> Cosigner Signature (if applicable): CC: ~ Signed [facility] Work Phone: 1(162) 897-361108-22-2025 Radiology Diagnostic study [facility]08-21-2025 Radiology Diagnostic study [facility]08-21-2025 Procedure [facility]08-21-2025 Progress note Author Nicola Roman [facility] Note Date/Time April 09, 2025 11 :31am [facility] Medical Records Department [address] [place] [address] Progress Note - Hospitalist 04/09/25 1125 MR#: [id number] Acct: [id number] Name: PEDRO HILLMAN Rep #:[id number] : 1945 80 From: Nicola Roman MD PCP: Dr. Tonio Fajardo, DO Status:ADM IN Location: [place] [address] Reason for Visit Chief Complaint: SOB, Cough [...] (Auto) 91.8 H, Lymph % (Auto) 2.8L, [place] % (Auto) 4.7, Eos % (Auto) 0.0, [...] treated with radiation therapy currently followed by [facility] oncology and will start 8. Chronic persistent [...] 50 Minutes Charges/Coding Visit Charges Inpatient E&M: 73493 [place] [address] 04/09/25 1131 <Electronically signed by Nicola Roman MD> Cosigner Signature (if applicable): CC: ~ Signed [facility] Work Phone: 1(496) 589-408808-20-2025 Consult note Author Issa Looney [facility] Note Date/Time April 08, 2025 7: 12pm [facility] Medical Records Department [address] [place] [address] Consultation - Cardiology 04/08/25 1906 MR#: [id number] Acct: [id number] Name: PEDRO HILLMAN Rep #:[id number] : 1945 80 From: Issa Looney MD PCP: Dr. Tonio Fajardo, DO Status:ADM IN Location: [place] [id number]- [id number] Assessment & Plan Assessment/Plan (1) Chronic [...] disease: QUALIFIERS: Coronary Disease-Associated Artery/Lesion type: nativeartery [place] vs. transplanted heart: citizen [place] heart Associated angina: without angina Qualified Code(s): I25.10 - Atherosclerotic heart disease of citizen [place] coronary artery without angina pectoris PLAN: He [...] has documented pauses over 8 seconds present. [facility] Medical History Peripheral arterial disease Other persistent atrial fibrillation New onset atrial flutter COVID Wears hearing aid in both ears Former smoker Coronary artery disease Peripheral vascular occlusive disease BPH (benign prostatic hyperplasia) Chronic kidney disease, stage 3 Atherosclerosis of coronary artery of citizen [place] heart without angina pectoris Hyperlipidemia Lower extremity [...] (Auto) 91.4 H, Lymph % (Auto) 3.5L, [place] % (Auto) 4.5, Eos % (Auto) 0.0, [...] 91.4 H, Lymph % (Auto) 3.5 L, [place] % (Auto) 4.5, Eos % (Auto) 0.0, [...] applicable): CC: Dr. Tonio Fajardo DO~ Signed [facility] Work Phone: 1(103) 564-129408-20-2025 Consult note Author Madeline billy [facility] Note Date/Time April 08, 2025 6: 51pm [facility] Medical Records Department [address] [place] [address] Consultation - Nephrology 04/06/25 1153 MR#: [id number] Acct: [id number] Name: PEDRO HILLMAN Rep #:[id number] : 1945 80 From: Madeline shultz DIRECTOR OF DIETARY-C PCP: Dr. Tonio Fajardo DO Status:ADM IN Location: [facility] [id number] Assessment & Plan Assessment/Plan (1) DARIUSZ (acute [...] kidney from prior ATN after CABG [place] [facility] March2013 (patient required hemodialysis for short period [...] He he was last seen in our [place] office in April 2021. CKD is secondary to diabetic nephropathy and residual damage of kidney from prior ATN after CABG at [facility] March 2013 (patient required hemodialysis for short period of time). Baseline creatinine April 2021 was around 1.5 to 1.9 mg/dL. Yesterday in the emergency room creatinine 2.57, today his creatinine is 2.52 mg/dL. Patient denies any recent nausea, vomiting or diarrhea. He does state since feeling unwell appetite has been poor. No NSAIDs. Denies any hematuria, dysuria, frequency, nocturia. [facility] Medical History Peripheral arterial disease Other persistent atrial fibrillation New onset atrial flutter COVID Wears hearing aid in both ears Former smoker Coronary artery disease Peripheral vascular occlusive disease BPH (benign prostatic hyperplasia) Chronic kidney disease, stage 3 Atherosclerosis of coronary artery of citizen [place] heart without angina pectoris Hyperlipidemia Lower extremity [...] (Auto) 79.7 H, Lymph % (Auto) 7.3L, [place] % (Auto) 10.7 H, Eos % (Auto) [...] Clarity Clear, Urine pH 5.0, Ur Specific Riddle 1.015, Urine Protein 100 H, Urine Glucose [...] (Auto) 81.9 H, Lymph % (Auto) 6.4L, [place] % (Auto) 10.1 H, Eos % (Auto) [...] pCO2 57.1 H ABG pO2 71 L Jg Test Positive O2 Delivery Device Cannula Vent Mode Not entered Imaging Radiology Impression Chest X-Ray 04/05/25 17:25 IMPRESSION: CHF with moderate right and small left pleural effusions/atelectasis, and pulmonary edema. Underlying infectious/inflammatory process cannot be reliably excluded. Reading Location: [id number] Chest X-Ray 04/06/25 04:13 IMPRESSION: Unchanged bilateral pleural effusions. Unchanged passive atelectatic airspace disease of the lower lobes. Unremarkable median sternotomy wires. Minimal decrease in pulmonary congestion/infiltrates. Enlarged cardiac silhouette. Reading Location: [place] [address] 04/06/25 1226 <Electronically signed by Madeline ZHONG> Cosigner Signature (if applicable): 04/08/25 1851 <Electronically signed by Davon Saravia MD> CC: Dr. Tonio Fajardo, ~ Signed [facility] Work Phone: 1(660) 662-513708-20-2025 Progress note Author [place] [facility] Note Date/Time April 08, 2025 6: 51pm [facility] Medical Records Department [address] [place] [address] Progress Note - Nephrology 04/07/25 1046 MR#: [id number] Acct: [id number] Name: PEDRO HILLMAN Rep #:[id number] : 1945 80 From: Madeline ZHONG PCP: Dr. Tonio Fajardo, Status:ADM IN Location: [place] [address] Subjective Subjective Sitting in chair. No overnight [...] 92.8 H, Lymph % (Auto) 3.1 L, [place] % (Auto) 2.5, Eos % (Auto) 0.0, [...] 12:19 IMPRESSION: NORMAL RENAL ULTRASOUND. Reading Location: [facility] Physical Exam Narrative Alert and [...] kidney from prior ATN after CABG at [place] March 2013 (patient required hemodialysis for short [...] 2 L yesterday. No acute indication for SUPERVISOR CUTTING DEPARTMENT. Renal ultrasound, normal ultrasound, no hydronephrosis. Urine [...] for hospital follow-up after hospital discharge in [place] office. Assessment and plan reviewed with Dr. Saravia. 04/07/25 1103 <Electronically signed by Madeline ZHONG> Cosigner Signature (if applicable): 04/08/25 1851 <Electronically signed by Davon Saravia MD> CC: ~ Signed [facility] Work Phone: 1(795) 926-474208-20-2025 Progress note Author Nicola Roman [facility] Note Date/Time April 08, 2025 3: 41pm [facility] Medical Records Department [address] [place] [address] Progress Note - Hospitalist 04/08/25 0757 MR#: [id number] Acct: [id number] Name: PEDRO HILLMAN Rep #:[id number] : 1945 80 From: Nicola Roman MD PCP: Dr. Tonio Fajardo, DO Status:ADM IN Location: [place] [address] Reason for Visit Chief Complaint: SOB, Cough [...] (Auto) 91.4 H, Lymph % (Auto) 3.5L, [place] % (Auto) 4.5, Eos % (Auto) 0.0, [...] treated with radiation therapy currently followed by [facility] oncology and will start 7. Chronic persistent [...] 35 Minutes Charges/Coding Visit Charges Inpatient E&M: 80638 Subs Hosp L2 04/08/25 1113 <Electronically signed [...] Cosigner Signature (if applicable): cc: ~* Signed [facility] Work Phone: 1(336) 909-890908-20-2025 Discharge summary Author Nicola Roman [facility] Note Date/Time April 08, 2025 1: 45pm [facility] Medical Records Department [address] [place] [address] Discharge Summary 04/08/25 1114 MR#: [id number] Acct: [id number] Name: PEDRO HILLMAN Rep #:[id number] : 1945 80 From: Nicola Roman MD PCP: Dr. Tonio Fajardo DO Status:ADM IN Location: [place] [id number] Providers Date of Admission: 04/05/25 Date of Discharge: 04/08/25 Primary Care Physician: Dr. Tonio Fajardo, Consultations 04/05/25 20:36 Consult: Nephrology Routine Consulting Provider: Davon Saravia Reason for Consult: CKD; stage IV with Hyperkalemia and AE CHF. EMERGENT Consult: No MD Notified: Yes Date Notified: 04/06/25 Time Notified: 06:58 Method of Notification: Answering Service 04/06/25 07:14 Consult: Onc/Wound/ep specialist Routine Comment: Reason for Consult:: burn R [...] treated with radiation therapy currently followed by [facility] oncology and will start 7. Chronic persistent [...] (Auto) 91.4 H, Lymph % (Auto) 3.5L, [place] % (Auto) 4.5, Eos % (Auto) 0.0, [...] Self Care Charges/Coding Visit Charges Inpatient E&M: 24698 Disch Hosp >30min 04/08/25 1345 <Electronically signed by Nicola Roman MD> Cosigner Signature (if applicable): CC: Dr. Nicola Roman MD; Dr. Tonio Fajardo DO~ Signed [facility] Work Phone: 1(237) 823-259808-20-2025 [facility]08-19-2025 Progress note Author Nicola Roman [facility] Note Date/Time April 07, 2025 11 :26am [facility] Medical Records Department [address] [place] [address] Progress Note - Hospitalist 04/07/25 1113 MR#: [id number] Acct: [id number] Name: PEDRO HILLMAN Rep #:[id number] : 1945 80 From: Nicola Roman MD PCP: Dr. Tonio Fajardo DO Status:ADM IN Location: [place] [id number]- 1 Reason for Visit Chief Complaint: SOB, [...] 92.8 H, Lymph % (Auto) 3.1 L, [place] % (Auto) 2.5, Eos % (Auto) 0.0, [...] 12:19 IMPRESSION: NORMAL RENAL ULTRASOUND. Reading Location: [facility] Physical Exam Narrative S GENERAL: [...] treated with radiation therapy currently followed by [facility] oncology and will start 7. Chronic persistent [...] 52 Minutes Charges/Coding Visit Charges Inpatient E&M: 81299 Subs Hosp L3 04/07/25 1126 <Electronically signed by Nicola Roman MD> Cosigner Signature (if applicable): CC: ~ Signed [facility] Work Phone: 1(848) 228-243208-18-2025 Progress note Author Deric Lantigua [facility] Note Date/Time April 06, 2025 4: 53pm [facility] Medical Records Department [address] [place] [address] Progress Note - Hospitalist 04/06/25 0837 MR#: [id number] Acct: [id number] Name: PEDRO HILLMAN Nora Rep #:[id number] : 1945 80 From: Deric Smith PCP: Dr. Tonio Fajardo, DO Status:ADM IN Location: [place] [address] Reason for Visit Chief Complaint: SOB, Cough [...] (Auto) 79.7 H, Lymph % (Auto) 7.3L, [place] % (Auto) 10.7 H, Eos % (Auto) [...] Clarity Clear, Urine pH 5.0, Ur Specific Riddle 1.015, Urine Protein 100 H, Urine Glucose [...] (Auto) 81.9 H, Lymph % (Auto) 6.4L, [place] % (Auto) 10.1 H, Eos % (Auto) [...] pCO2 57.1 H ABG pO2 71 L Jg Test Positive O2 Delivery Device Cannula Vent Mode Not entered Radiography Diagnostic Testing: Radiology Impression Chest X-Ray 04/05/25 17:25 IMPRESSION: CHF with moderate right and small left pleural effusions/atelectasis, and pulmonary edema. Underlying infectious/inflammatory process cannot be reliably excluded. Reading Location: [facility] Chest X-Ray 04/06/25 04:13 IMPRESSION: Unchanged bilateral pleural effusions. Unchanged passive atelectatic airspace disease of the lower lobes. Unremarkable median sternotomy wires. Minimal decrease in pulmonary congestion/infiltrates. Enlarged cardiac silhouette. Reading Location: [place] [address] Physical Exam Narrative Seen and examined Patient [...] oxygen requirement with increasing productive cough. Patient's govvdbuy-fu-utk increased O2 to 4 L. Noleg swelling. 1. Acute on chronic HFpEF: Patient is being admitted in the PCU. proBNP 4003. Chest x-ray initially shows moderate right and small left pleural effusion and atelectasis and pulmonary edema. Serial troponins 64, 62 and 60 flat and indeterminate and not indicative of ACS.2D echo 03/05 reported EF 55%, PASP 42 mmHg with moderate TR, moderate VA and mild PI. TSH normal Plan: Patient is started on furosemide 40 mg IV twice daily. Heart failure coremeasures including intake and output, fluid restriction less than 1500 mL, dailyweight monitoring, kidney and electrolytes monitoring. 2. Persistent trial flutter/atrial fib: Currently patient in sinus rhythm. On monitoring coordinator sinus rhythm 105 bpm. During previous admission [...] (Auto) 79.7 H, Lymph % (Auto) 7.3L, [place] % (Auto) 10.7 H, Eos % (Auto) [...] pCO2 57.1 H, ABG pO2 71 L, Jg Test Positive, O2 Delivery Device Cannula, VentMode Not entered 04/05/25 21:49: Urine Color Yellow, Urine Clarity Clear, Urine pH 5.0, Ur Specific Riddle 1.015, Urine Protein 100 H, Urine Glucose [...] (Auto) 81.9 H, Lymph % (Auto) 6.4L, [place] % (Auto) 10.1 H, Eos % (Auto) [...] 140 H Charges/Coding Visit Charges Inpatient E&M: 37390 Subs Hosp L3 04/06/25 1654 <Electronically signed by Deric Lantigua MD> Cosigner Signature (if applicable): CC: ~ Signed [facility] Work Phone: 1(105) [phone] [facility] History and physical note Author Nicola Madison [facility] Note Date/Time April 06, 2025 6: 23am [facility] Medical Records Department [address] [facility] [place] [address] H&P Exam - Hospitalist 04/05/251917 MR#: [id number] Acct: [id number] Name: PEDRO HILLMAN Rep #:[id number] : 1945 80 From: Nicola Levy DO PCP: Dr. Tonio Fajardo, DO Status:ADM IN Location: [facility] [id number]- 1 HPI - General General Date of [...] patient still FULL CODE who presents to [facility] ER complaining of shortness of breath, cough [...] status expected to extend beyond 2 midnights. [facility] Medical History Peripheral arterial disease Other persistent atrial fibrillation New onset atrial flutter COVID Wears hearing aid in both ears Former smoker Coronary artery disease Peripheral vascular occlusive disease BPH (benign prostatic hyperplasia) Chronic kidney disease, stage 3 Atherosclerosis of coronary artery of citizen [place] heart without angina pectoris Hyperlipidemia Lower extremity [...] (Auto) 79.7 H, Lymph % (Auto) 7.3L, [place] % (Auto) 10.7 H, Eos % (Auto) [...] process cannot be reliably excluded. Reading Location: [facility] Assessment & Plan Assessment/Plan (1) Acute on [...] 75 minutes. Charges/Coding Visit Charges Inpatient E&M: 26818 Init Hosp 04/06/25 0623 <Electronically signed by Nicola Lindsey DO> Cosigner Signature (if applicable): CC: Dr. Nicola Lindsey DO; Dr. Tonio Fajardo DO~ Signed [facility] Work Phone: [phone]) [phone] Radiology Diagnostic study [facility]08-18-2025 Discharge summary Author Ld Hayes [facility] Note Date/Time April 06, 2025 12 :36am [facility] Medical Records Department [address] [place] [address] Emergency Department Summary 04/05/25 MR#: [id number] Acct: [id number] Name: PEDRO HILLMAN Rep #:[id number] : 1945 80 From: Ld Quintero PCP: Dr. Tonio Fajardo DO Status:ADM IN Location: [place] [address] HPI History of Present Illness Chief Complaint: Hypotension Informant: patient and family Narrative Narrative: Presents by EMS from home daughter in law present. Increasing productive cough. Chronic oxygenation of 3 L for COPD history remote history of lung cancer. Fvreniuq-fm-akw reports that increase his oxygen to 4 [...] CKD history. He is followed by the [place] [facility]. Reports he was admitted 3 weeks ago approximately had his metoprolol held and placed on diltiazem. Prior similar symptoms: Yes PFSH [facility] Medical History Peripheral arterial disease Other persistent atrial fibrillation New onset atrial flutter COVID Wears hearing aid in both ears Former smoker Coronary artery disease Peripheral vascular occlusive disease BPH (benign prostatic hyperplasia) Chronic kidney disease, stage 3 Atherosclerosis of coronary artery of citizen [place] heart without angina pectoris Hyperlipidemia Lower extremity [...] QT 448. Similar EKG findings from February ofs year. Imaging independently reviewed and interpreted by [...] clinician: Hospitalist This note was generated with Grabbit dictation software. It may contain incorrectwords, spelling, [...] 79.7 H Lymph % (Auto) 7.3 L [place] % (Auto) 10.7 H Eos % (Auto) [...] process cannot be reliably excluded. Reading Location: [facility] Discharge Plan Dx/Rx/DC Orders Clinical Impression: CHF exacerbation, Chronic kidney disease, stage 3, Atrial flutter, Chronic anticoagulation, Hyperkalemia Disposition Disposition: [facility] Care [facility] Discharge Date/Time: 04/05/25 20:38 What to do if you have Problems For any increased pain, shortness of breath, bleeding, nausea or vomiting, chestpain, or any unexpected problems, contact your Primary Care Provider. Call [facility] ([phone]) or report to the closest Emergency Room. Call 911 if necessary. 04/06/25 0036 <Electronically signed by Ld Quintero> Cosigner Signature (if applicable): CC: Dr. Tonio Fajardo DO ~ Signed [facility] Work Phone: 1(874) 676-268708-17-2025 Radiology Diagnostic study [facility]07-27-2025 Discharge summary [facility] Medical Records Department [address] [place] [address] Emergency Department Summary 03/15/25 MR#: [id number] Acct: [id number] Name: PEDRO HILLMAN Rep #:[id number] : 1945 80 From: Alex Matias MD [...] similar symptoms: Yes Recent Illness/Hospitalization: Yes (CHF) [facility] Medical History Other persistent atrial fibrillation New onset atrial flutter COVID Wears hearing aid in both ears Former smoker Coronary artery disease Peripheral vascular occlusive disease BPH (benign prostatic hyperplasia) Chronic kidney disease, stage 3 Atherosclerosis of coronary artery of citizen [place] heart without angina pectoris Hyperlipidemia Lower extremity [...] 4 doses of apixaban, Eliquis Print Language: Guatemalan Disposition Disposition: Home, Self Care What to do if you have Problems For any increased pain, shortness of breath, bleeding, nausea or vomiting, chestpain, or any unexpected problems, contact your Primary Care Provider. Call [facility] ([phone]) or report tothe closest Emergency Room. Call 911 if necessary. 03/15/25 1822 Cosigner Signature (if applicable): CC: Dr. Tonio Fajardo DO ~ Signed [facility]07-27-2025 Discharge summary Author Alex Matias [facility] Note Date/Time March 15, 2025 6:22 pm [facility] Medical Records Department [address] [place] [address] Emergency Department Summary 03/15/25 MR#: [id number] Acct: [id number] Name: PEDRO HILLMAN Rep #:[id number] : 1945 80 From: Alex Matias MD [...] similar symptoms: Yes Recent Illness/Hospital[facility]: Yes (CHF[facility] Medical History Other persistent atrial fibrillation New onset atrial flutter COVID Wears hearing aid in both ears Former smoker Coronary artery disease Peripheral vascular occlusive disease BPH (benign prostatic hyperplasia) Chronic kidney disease, stage 3 Atherosclerosis of coronary artery of citizen [place] heart without angina pectoris Hyperlipidemia Lower extremity [...] 4 doses of apixaban, Eliquis Print Language: Guatem[place] Disposition Disposition: Home, Self Care What to do if you have Problems For any increased pain, shortness of breath, bleeding, nausea or vomiting, chestpain, or any unexpected problems, contact your Primary Care Provider. Call [facility] ([phone]) or report to the closest Emergency Room. Call 911 if necessary. 03/15/251821 <Electronically signed by Alex Matias MD> Cosigner Signature (if applicable): CC: Dr. Tonio Fajardo DO ~ Signed [facility] Work Phone: 1([phone]) 224-462107-27-2025 Hospital Discharge instructionsAdditional Instructions 1. Hold the next 4 doses of apixaban, Eliquis. 2. Take amoxicillin as prescribed until gone 3. Contact Dr. Vasquez's office in the morning to be seen later this week to have the pack removed.[facility] Work Phone: 1(657) 194-652707-21-2025 Consult note [facility] Medical Records Department [address] [place] [address] Counseling Note - Pharmacy 03/09/25 1457 MR#: [id number] Acct: [id number] Name: PEDRO HILLMAN Rep #:[id number] : 1945 80 From: Mala Sterling PCP: Dr. Tonio Fajardo, DO Status:ADM IN Y Location: [place] [address] Pharmacy [facility] Counseling Pharmacy Service has performed discharge [...] caps 03/09/25 03/09/25 1458 Date _ Mala Sepulvedaignbakari Signature (if applicable): Date CC: ~ Signed [facility]07-21-2025 Discharge summary Author Deric Lantigua [facility] Note Date/Time March 09, 2025 12:5 2pm [facility] Medical Records Department [address] [place] [address] Discharge Summary 03/09/25 1251 MR#: [id number] Acct: [id number] Name: PEDRO HILLMAN Rep #:[id number] : 1945 80 From: Deric Smith PCP: Dr. Tonio Fajardo DO Status:ADM IN Location: [place] [id number]- 1 Providers Date of Admission: 03/04/25 Date of Discharge: 03/09/25 Primary Care Physician: Dr. Tonio Fajardo, Consultations 03/04/25 21:21 Consult: Cardiology Routine Consulting Provider: [facility] Reason for Consult: AE CHF, [...] Code(s): I25.10 - Atherosclerotic heart disease of citizen [place] coronary artery without angina pectoris Qualifiers: Coronary Disease-Associated Artery/Lesion type: citizen [place] artery [place] vs. transplanted heart: citizen [place] heart Associated angina: without angina Qualified Code(s): I25.10 - Atherosclerotic heart disease of citizen [place] coronary artery without angina pectoris (3) Chronic anticoagulation: Status: Acute Code(s): Z79.01 - rn long term care (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 of anticoagulants Plan 80-year-old gentleman [...] no significant delta change. ACS ruled out. Motor Assembly Supervisor is consulted. Repeat proBNP is elevated but it does not reflect treatment response as it should not be ordered for that. Clinically patient is feeling better with improvement in shortness of breath. 2D echo 03/05 reported EF 55%, PASP 42 mmHg with moderate TR, moderate VA and mild PI. 03/06: Furosemide changed to [...] conduction. Later on irregular variable conduction on monitoring coordinator 03/06: Discussed with the compliance quality performance analyst. Metoprolol increased to 25 mg twice daily, [...] pressure in the 90s. Discussed with the compliance quality performance analyst. Advised to discontinue to discontinue metoprolol and [...] the CODE STATUS. 03/09: Discussed with the compliance quality performance analyst.Patient heart rate controlled in 70s. Yesterday rate was in 80s. Patient tolerated Cardizem 30 mg every 8 hourly therefore discharged on Cardizem CD 120 mg. I called patient's ljggvogr-zx-ciq and explained the medication. Motor Assembly Supervisor felt probably does not need even pacemaker. [...] at the right lung base. Reading Location: [facility] Echocardiogram 03/04/25 20:08 Interpretation Summary Moderate [...] in right lung base aeration. Reading Location: [place] [address] Medications at Discharge Home Medications insulin glargine [...] 03/05/25 14:17 SB (Rec: 03/05/25 14:17 SB [id number]) Nutrition Malnutrition Evidence of Yes Malnutrition Exists [...] (Auto) 72.6 H, Lymph % (Auto) 9.7L, [place] % (Auto) 12.1 H, Eos % (Auto) [...] Self Care Charges/Coding Visit Charges Inpatient E&M: 32362 Disch Hosp >30min 03/09/25 1252 <Electronically signed by Deric Lantigua MD> Cosigner Signature (if applicable): CC: Dr. Tonio Fajardo DO; Dr. Willian Glaser MD; Dr. Deric Lantigua MD~ Signed [facility] Work Phone: 1(177) 738-415307-21-2025 Discharge summary Author Deric Lantigua [facility] Note Date/Time March 09, 2025 12:4 4pm [facility] Medical Records Department [address] [place] [address] Instructions for Home/Discharge Instructions 03/09/25 1031 MR#: [id number] Acct: [id number] Name: PEDRO HILLMAN Rep #:[id number] : 1945 80 From: Deric Smith PCP: [...] can be placed): Home, Self Care 03/09/25 1929<Electronically signed by Deric Lantigua MD>Deric Lantigua MD [...] MD; RICKIE Kumari; RICKIE Cummins ~ Signed [facility] Work Phone: 1([phone]) 199-511607-21-2025 Hospital Discharge instructionsAdditional Instructions Discharge with Claudio catheter. [facility]: [facility] 1([phone]) 274-392807-21-2025 Discharge summary [facility] Medical Records Department [address] [place] [address] Discharge Summary 03/09/25 1251 MR#: [id number] Acct: [id number] Name: PEDRO HILLMAN Rep #:[id number] : 1945 80 From: Deric Smith PCP: Dr. Tonio Fajardo DO Status:ADM IN Location: [place] [address] Providers Date of Admission: 03/04/25 Date of Discharge: 03/09/25 Primary Care Physician: Dr. Tonio Fajardo DO Consultations 03/04/25 21:21 Consult: Cardiology Routine Consulting Provider: [facility] Reason for Consult: AE CHF, [...] Code(s): I25.10 - Atherosclerotic heart disease of citizen [place] coronary artery without angina pectoris Qualifiers: Coronary Disease-Associated Artery/Lesion type: citizen [place] artery [place] vs. transplanted heart: nativeheart Associated angina: without angina Qualified Code(s): I25.10 - Atherosclerotic heart disease of citizen [place] coronary artery without angina pectoris (3) Chronic anticoagulation: Status: Acute Code(s): Z79.01 - longterm (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 of anticoagulants Plan 80-year-old gentleman [...] pleural effusion and bibasilar atelectasis worse at [facility] lung base Maintain metoprolol and lisinopril as before. 03/05: Heart failure core measures including intake and output, fluid restrictionless than 1500 mL, daily weight monitoring, kidney and electrolytes monitoring. On furosemide 40 mg twice daily. Serialtroponins 44, 45 and 42 therefore no significant delta change. ACS ruled out. Motor Assembly Supervisor is consulted. Repeat proBNP is elevated but it does not reflect treatment response as it should not be ordered for that. Clinically patient is feeling better with improvement in shortness of breath. 2D echo 03/05 reported EF 55%, PASP 42 mmHg with moderate TR, moderate VA and mild PI. 03/06: Furosemide changed to [...] conduction. Later on irregular variable conduction on monitoring coordinator 03/06: Discussed with the compliance quality performance analyst. Metoprolol increased to 25 mg twice daily, Cardizem 60 mg H6qgwbpm. If heart rate controlled, will switch to [...] pressure in the 90s. Discussed with the compliance quality performance analyst. Advised to discontinue to discontinue metoprolol and [...] the CODE STATUS. 03/09: Discussed with the compliance quality performance analyst.Patient heart rate controlled in 70s. Yesterday rate was in 80s. Patient tolerated Cardizem 30 mg every 8 hourly therefore discharged on Cardizem CD 120 mg. I called patient's djhnwpfq-qv-bev and explained the medication. Motor Assembly Supervisor felt probably does not need even pacemaker. Advised to follow-up with Leslie Arriaga in [address] Looeny for further opinion. Patient might have sinus [...] at the right lung base. Reading Location: [facility] Echocardiogram 03/04/25 20:08 Interpretation Summary Moderate [...] in right lung base aeration. Reading Location: [place] [address] Medications at Discharge Home Medications insulin glargine [...] 03/05/25 14:17 SB (Rec: 03/05/25 14:17 SB [id number]) Nutrition Malnutrition Evidence of Yes Malnutrition Exists [...] (Auto) 72.6 H, Lymph % (Auto) 9.7L, [place] % (Auto) 12.1 H, Eos % (Auto) [...] Self Care Charges/Coding Visit Charges Inpatient E&M: 52468 Disch Hosp >30min 03/09/25 8138 Cosigner Signature (if applicable): CC: Dr. Tonio Fajardo DO; Dr. Willian Glaser MD; Dr. Deric Lantigua MD~ Signed [facility]07-21-2025 [facility]07-21-2025 Discharge summary [facility] Medical Records Department [address] [place] [address] Instructions for Home/Discharge Instructions 03/09/25 1031 MR#: [id number] Acct: [id number] Name: PEDRO HILLMAN Rep #:[id number] : 1945 80 From: Deric Smith PCP: [...] MD; RICKIE Kumari; RICKIE Cummins ~ Signed [facility]07-21-2025 Progress note Author Willian Glaser [facility] Note Date/Time March 09, 2025 9:53 am [facility] Medical Records Department [address] [place] [address] Progress Note - Cardiology 03/09/25 0943 MR#: [id number] Acct: [id number] Name: PEDRO HILLMAN Rep #:[id number] : 1945 80 From: Willian Glaser MD PCP: Dr. Tonio Fajardo DO Status:ADM IN Location: [place] [address] Subjective Subjective Patient evaluated in a seated [...] (Auto) 72.6 H, Lymph % (Auto) 9.7L, [place] % (Auto) 12.1 H, Eos % (Auto) [...] 72.6 H, Lymph % (Auto) 9.7 L, [place] % (Auto) 12.1 H, Eos % (Auto) [...] disease: QUALIFIERS: Coronary Disease-Associated Artery/Lesion type: nativeartery [place] vs. transplanted heart: citizen [place] heart Associated angina: without angina Qualified Code(s): I25.10 - Atherosclerotic heart disease of citizen [place] coronary artery without angina pectoris PLAN: Patient carries a history of bypass graft surgery followed in the [facility]. The patient should be reevaluated in 2 to 4 weeks in the [facility] with advanced practitioner. Given the [...] At discharge patient should follow-up with the [facility] advanced practitioner in 2 to 3 weeks. 4. If further assistance is needed please reconsult the [facility]. Charges/Coding Visit Charges Inpatient E&M: 59024 Subs Hosp L3 03/09/25 0953 <Electronically signed by Willian Glaser MD> Cosigner Signature (if applicable): CC: ~ Signed [facility] Work Phone: 1(459) 264-507407-21-2025 Progress note [facility] Medical Records Department [address] [place] [address] Progress Note - Cardiology 03/09/25 0943 MR#: [id number] Acct: [id number] Name: PEDRO HILLMAN Rep #:[id number] : 1945 80 From: Willian Glaser MD PCP: Dr. Tonio Fajardo, DO Status:ADM IN Location: [place] [address] Subjective Subjective Patient evaluated in a seated [...] (Auto) 72.6 H, Lymph % (Auto) 9.7L, [place] % (Auto) 12.1 H, Eos % (Auto) [...] 72.6 H, Lymph % (Auto) 9.7 L, [place] % (Auto) 12.1 H, Eos % (Auto) [...] disease: QUALIFIERS: Coronary Disease-Associated Artery/Lesion type: nativeartery [place] vs. transplanted heart: citizen [place] heart Associated angina: without angina Qualified Code(s): I25.10 - Atherosclerotic heart disease of citizen [place] coronary artery without angina pectoris PLAN: Patient carries a history of bypass graft surgery followed in the [facility]. The patient should be reevaluated in 2 to 4 weeks in the [facility] with advanced practitioner. Given the [...] At discharge patient should follow-up with the [facility] advanced practitioner in 2 to3 weeks. 4. If further assistance is needed please reconsult the [facility]. Charges/Coding Visit Charges Inpatient E&M: 32213 [facility] Hosp 03/09/25 0953 Cosigner Signature (if applicable): CC: ~ Signed [facility]07-20-2025 Progress note Author Deric Lantigua [facility] Note Date/Time March 08, 2025 1:34 pm [facility] Medical Records Department [address] [place] [address] Progress Note - Hospitalist 03/08/25 0844 MR#: [id number] Acct: [id number] Name: PEDRO HILLMAN Rep #:[id number] : 1945 80 From: Deric Smith PCP: Dr. Tonio Fajardo, DO Status:ADM IN Location: [place] [address] Reason for Visit Chief Complaint: SOB. Objective [...] 03/05/25 14:17 SB (Rec: 03/05/25 14:17 SB [id number]) Nutrition Malnutrition Evidence of Yes Malnutrition Exists [...] also sustained 11 beats of V. tach. equipment monitor phototypesetting reviewed. Still in A-fib/flutter with bradycardia. Shortness [...] hematuria: (8) Atherosclerosis of coronary artery of citizen [place] heart without angina pectoris: QUALIFIERS: Coronary Disease-Associated Artery/Lesion type: nativeartery Qualified Code(s): I25.10 - Atherosclerotic heart disease of citizen [place] coronary artery without angina pectoris (9) Overweight [...] no significant delta change. ACS ruled out. Motor Assembly Supervisor is consulted. Repeat proBNP is elevated but it does not reflect treatment response as it should not be ordered for that. Clinically patient is feeling better with improvement in shortness of breath. 2D echo 03/05 reported EF 55%, PASP 42 mmHg with moderate TR, moderate VA and mild PI. 03/06: Furosemide changed to [...] conduction. Later on irregular variable conduction on monitoring coordinator 03/06: Discussed with the compliance quality performance analyst. Metoprolol increased to 25 mg twice daily, [...] pressure in the 90s. Discussed with the compliance quality performance analyst. Advised to discontinue to discontinue metoprolol and [...] at the right lung base. Reading Location: [facility] Echocardiogram 03/04/25 20:08 Interpretation Summary Moderate [...] in right lung base aeration. Reading Location: [place] [address] Charges/Coding Addendum Addendum: Total time of the visit including total time spent in counseling or coordinationof care, (more than 50% of the total time, spent in obtaining medical information from nurses and other ancillary care providers ,explaining to the patient about labs, imaging, diagnosis and management of active complex medical conditions), multiple active cardiac issues, urinary retention discussion with compliance quality performance analyst and clinical update given to patient's ywbwflpm-if-pmy, review of labs and imaging is 35 minutes. Visit Charges Inpatient E&M: 85955 Subs Hosp L3 03/08/25 1040 <Electronically signed by Deric Lantigua MD> Cosigner Signature (if applicable): CC: ~ Signed ADDENDUM by Dr. Deric Lantigua MD on 03/08/25 at 1334 Addendum The patient's son and tlqwyump-id-nhj came to visit him. They decided patient to be DNR CC arrest with no intubation CODE STATUS changed. Living will/advanced directive/end of life care: Patient does not have living will or advanced directive. He is next of kin is his son and pakmowkq-mm-ujx. After discussion of benefits/risks procedures involved with full code, DNR CC arrest and DNR CC, the patient and his byerljio-hi-qhn he opted for DNR CC arrest with no intubation. Patient also said that he does not want pacemaker but his awzfupih-uv-ene and son will discuss with him Patient does want artificial life support including intubation, tube feed, ventilator and/chest compression, central venous catheter, vasopressor and DC shock if needed Total time spent in wapv-io-uxtt encounter in discussion of advanced directive 17 minutes. 03/08/25 1334<Electronically signed by Deric Lantigua MD> Cosigner Signature (if applicable): cc: ~* Signed [facility] Work Phone: 1([phone]) 548-689007-20-2025 Progress note [facility] Medical Records Department [address] [place] [address] Progress Note - Hospitalist 03/08/25 0844 MR#: [id number] Acct: [id number] Name: PEDRO HILLMAN Rep #:[id number] : 1945 80 From: Deric Smith PCP: Dr. Tonio Fajardo, DO Status:ADM IN Location: [place] [address] Reason for Visit Chief Complaint: SOB. Objective [...] 03/05/25 14:17 SB (Rec: 03/05/25 14:17 SB [id number]) Nutrition Malnutrition Evidence of Yes Malnutrition Exists [...] Patient alsosustained 11 beats of V. tach. equipment monitor phototypesetting reviewed. Still in A-fib/flutter with bradycardia. Shortness [...] hematuria: (8) Atherosclerosis of coronary artery of citizen [place] heart without angina pectoris: QUALIFIERS: Coronary Disease-Associated Artery/Lesion type: nativeartery Qualified Code(s): I25.10 - Atherosclerotic heart disease of [place] coronary artery without angina pectoris (9) Overweight [...] no significant delta change. ACS ruled out. Motor Assembly Supervisor is consulted. Repeat proBNP is elevated but it does not reflect treatment response as it should not be ordered for that. Clinically patient is feeling better with improvement in shortness of breath. 2D echo 03/05 reported EF 55%, PASP 42 mmHg with moderate TR, moderate VA and mild PI. 03/06: Furosemide changed to [...] conduction. Later on irregular variable conduction on monitoring coordinator 03/06: Discussed with the compliance quality performance analyst. Metoprolol increased to 25 mg twice daily, Cardizem 60 mg U5kttlzh. If heart rate controlled, will switch to [...] pressure in the 90s. Discussed with the compliance quality performance analyst. Advised to discontinue to discontinue metoprolol and [...] at the right lung base. Reading Location: [facility] Echocardiogram 03/04/25 20:08 Interpretation Summary Moderate [...] in right lung base aeration. Reading Location: [place] [address] Charges/Coding Addendum Addendum: Total time of the visit including total time spent in counseling or coordinationof care, (more than50% of the total time, spent in obtaining medical information from nurses and other ancillary care providers ,explaining to the patient about labs, imaging, diagnosis and management of active complexmedical conditions), multiple active cardiac issues, urinary retention discussion with cardiologistand clinical update given to patient's dtqhxzpq-rj-cmg, review of labs and imaging is 35 minutes. Visit Charges Inpatient E&M: 34629 Subs Hosp L3 03/08/25 1040 Cosigner Signature (if applicable): CC: ~ Signed ADDENDUM by Dr. Deric Lantigua MD on 03/08/25 at 1334 Addendum The patient's son and pwvsrgyj-kj-ruj came to visit him. They decided patient to be DNR CC arrest with no intubation CODE STATUS changed. Living will/advanced directive/end of life care: Patient does not have living will or advanced directive. He is next of kin is his son and bzxdgncr-st-hju. After discussion of benefits/risks procedures involved with full code, DNR CC arrest and DNR CC, the patient and his ywvfkzlm-py-wbp he opted for DNR CC arrest with no intubation. Patient also said that he does not want pacemaker but his hdhblewn-xo-wxv and son will discuss with him Patient does want artificial life support including intubation, tube feed, ventilator and/chest compression, central venous catheter, vasopressor and DC shock if needed Total time spent in ontc-ul-klfp encounter in discussion of advanced directive 17 minutes. 03/08/25 1334 Cosigner Signature (if applicable): cc: ~* Signed [facility]07-20-2025 Progress note Author Marjorie Green [facility] Note Date/Time March 08, 2025 8:51 am [facility] Medical Records Department [address] [place] [address] Progress Note - Cardiology 03/08/25 0848 MR#: [id number] Acct: [id number] Name: PEDRO HILLMAN Rep #:[id number] : 1945 80 From: Marjorie Green MD PCP: Dr. Tonio Fajardo, DO Status:ADM IN Location: [place] [address] Subjective Subjective Denies any complaints. Became bradycardic [...] Cosigner Signature (if applicable): CC: ~ Signed [facility] Work Phone: 1(701) 594-128907-20-2025 Progress note [facility] Medical Records Department [address] [place] [address] Progress Note - Cardiology 03/08/25 0848 MR#: [id number] Acct: [id number] Name: PEDRO HILLMAN Rep #:[id number] : 1945 80 From: Marjorie Green MD PCP: Dr. Tonio Fajardo, Status:ADM IN Location: [place] [address] Subjective Subjective Denies any complaints. Became bradycardic [...] Cosigner Signature (if applicable): CC: ~ Signed [facility]07-19-2025 Progress note Author Deric Lantigua [facility] Note Date/Time March 07, 2025 1:51 pm [facility] Medical Records Department [address] [place] [address] Progress Note - Hospitalist 03/07/25 1342 MR#: [id number] Acct: [id number] Name: KADYPEDRO Nora Rep #:[id number] : 1945 80 From: Deric Smith PCP: Dr. Tonio Fajardo, DO Status:ADM IN Location: [place] [address] Reason for Visit Chief Complaint: SOB. Objective [...] 03/05/25 14:17 SB (Rec: 03/05/25 14:17 SB [id number]) Nutrition Malnutrition Evidence of Yes Malnutrition Exists [...] low 108/34 but improved to 129 systolic. equipment monitor phototypesetting reviewed. Still in A-fib/flutter. Shortness of breath [...] hematuria: (8) Atherosclerosis of coronary artery of citizen [place] heart without angina pectoris: QUALIFIERS: Coronary Disease-Associated Artery/Lesion type: nativeartery Qualified Code(s): I25.10 - Atherosclerotic heart disease of citizen [place] coronary artery without angina pectoris (9) Overweight [...] no significant delta change. ACS ruled out. Motor Assembly Supervisor is consulted. Repeat proBNP is elevated but it does not reflect treatment response as it should not be ordered for that. Clinically patient is feeling better with improvement in shortness of breath. 2D echo 03/05 reported EF 55%, PASP 42 mmHg with moderate TR, moderate VA and mild PI. 03/06: Furosemide changed to [...] conduction. Later on irregular variable conduction on monitoring coordinator 03/06: Discussed with the compliance quality performance analyst. Metoprolol increased to 25 mg twice daily, [...] at the right lung base. Reading Location: [facility] Echocardiogram 03/04/25 20:08 Interpretation Summary Moderate [...] in right lung base aeration. Reading Location: [place] [address] Charges/Coding Visit Charges Inpatient E&M: 09006 Subs Hosp L2 03/07/25 1351 <Electronically signed by Deric Lantigua MD> Cosigner Signature (if applicable): CC: ~ Signed [facility] Work Phone: 1(591) 680-351907-19-2025 Progress note [facility] Medical Records Department [address] [place] [address] Progress Note - Hospitalist 03/07/25 1342 MR#: [id number] Acct: [id number] Name: PEDRO HILLMAN Rep #:[id number] : 1945 80 From: Deric Smith PCP: Dr. Tonio Fajardo, DO Status:ADM IN Location: [place] [address] Reason for Visit Chief Complaint: SOB. Objective [...] 03/05/25 14:17 SB (Rec: 03/05/25 14:17 SB [id number]) Nutrition Malnutrition Evidence of Yes Malnutrition Exists [...] low 108/34 but improved to 129 systolic. equipment monitor phototypesetting reviewed. Still in A-fib/flutter. Shortness of breath [...] hematuria: (8) Atherosclerosis of coronary artery of citizen [place] heart without angina pectoris: QUALIFIERS: Coronary Disease-Associated Artery/Lesion type: nativeartery Qualified Code(s): I25.10 - Atherosclerotic heart disease of citizen [place] coronary artery without angina pectoris (9) Overweight [...] no significant delta change. ACS ruled out. Motor Assembly Supervisor is consulted. Repeat proBNP is elevated but it does not reflect treatment response as it should not be ordered for that. Clinically patient is feeling better with improvement in shortness of breath. 2D echo 03/05 reported EF 55%, PASP 42 mmHg with moderate TR, moderate VA and mild PI. 03/06: Furosemide changed to [...] conduction. Later on irregular variable conduction on monitoring coordinator 03/06: Discussed with the compliance quality performance analyst. Metoprolol increased to 25 mg twice daily, Cardizem 60 mg O0hqqcxx. If heart rate controlled, will switch to [...] at the right lung base. Reading Location: [facility] Echocardiogram 03/04/25 20:08 Interpretation Summary Moderate [...] in right lung base aeration. Reading Location: [place] [address] Charges/Coding Visit Charges Inpatient E&M: 78546 Subs Hosp L2 03/07/25 1351 Cosigner Signature (if applicable): CC: ~ Signed [facility]07-18-2025 Progress note Author Deric Lantigua [facility] Note Date/Time March 06, 2025 3:46 pm [facility] Medical Records Department [address] [place] [address] Progress Note - Hospitalist 03/06/25 1540 MR#: [id number] Acct: [id number] Name: PEDRO HILLMAN Rep #:[id number] : 1945 80 From: Deric Smith PCP: Dr. Tonio Fajardo, Status:ADM IN Location: [place] [address] Reason for Visit Chief Complaint: SOB. Objective [...] 03/05/25 14:17 SB (Rec: 03/05/25 14:17 SB [id number]) Nutrition Malnutrition Evidence of Yes Malnutrition Exists [...] is improved. Still in A-fib/flutter with heart [id number]. Shortness of breath is better. Did not [...] hematuria: (8) Atherosclerosis of coronary artery of citizen [place] heart without angina pectoris: QUALIFIERS: Coronary Disease-Associated Artery/Lesion type: nativeartery Qualified Code(s): I25.10 - Atherosclerotic heart disease of citizen [place] coronary artery without angina pectoris (9) Overweight [...] no significant delta change. ACS ruled out. Motor Assembly Supervisor is consulted. Repeat proBNP is elevated but it does not reflect treatment response as it should not be ordered for that. Clinically patient is feeling better with improvement in shortness of breath. 2D echo 03/05 reported EF 55%, PASP 42 mmHg with moderate TR, moderate VA and mild PI. 03/06: Furosemide changed to [...] conduction. Later on irregular variable conduction on monitoring coordinator 03/06: Discussed with the compliance quality performance analyst. Metoprolol increased to 25 mg twice daily, [...] at the right lung base. Reading Location: [facility] Echocardiogram 03/04/25 20:08 Interpretation Summary Moderate [...] in right lung base aeration. Reading Location: [place] [address] Charges/Coding Visit Charges Inpatient E&M: 10418 Subs Hosp L2 03/06/25 0843 <Electronically signed by Deric Lantigua MD> Cosigner Signature (if applicable): CC: ~ Signed [facility] Work Phone: 1(447) 998-366007-18-2025 Progress note [facility] Medical Records Department [address] [place] [address] Progress Note - Hospitalist 03/06/25 1540 MR#: [id number] Acct: [id number] Name: PEDRO HILLMAN Rep #:[id number] : 1945 80 From: Deric Smith PCP: Dr. Tonio Fajardo, DO Status:ADM IN Location: [place] [address] Reason for Visit Chief Complaint: SOB. Objective [...] 03/05/25 14:17 SB (Rec: 03/05/25 14:17 SB [id number]) Nutrition Malnutrition Evidence of Yes Malnutrition Exists [...] is improved. Still in A-fib/flutter with heart [id number]. Shortness of breath is better. Did not [...] hematuria: (8) Atherosclerosis of coronary artery of citizen [place] heart without angina pectoris: QUALIFIERS: Coronary Disease-Associated Artery/Lesion type: nativeartery Qualified Code(s): I25.10 - Atherosclerotic heart disease of [place] coronary artery without angina pectoris (9) Overweight [...] pleural eff[facility] Maintain metoprolol and lisinopril as before. 03/05: Heart failure core measures including intake and output, fluid restrictionless than 1500 mL, daily weight monitoring, kidney and electrolytes monitoring. On furosemide 40 mg twice daily. Serialtroponins 44, 45 and 42 therefore no significant delta change. ACS ruled out. Motor Assembly Supervisor is consulted. Repeat proBNP is elevated but it does not reflect treatment response as it should not be ordered for that. Clinically patient is feeling better with improvement in shortness of breath. 2D echo 03/05 reported EF 55%, PASP 42 mmHg with moderate TR, moderate VA and mild PI. 03/06: Furosemide changed to [...] conduction. Later on irregular variable conduction on monitoring coordinator 03/06: Discussed with the compliance quality performance analyst. Metoprolol increased to 25 mg twice daily, Cardizem 60 mg M9bsddin. If heart rate controlled, will switch to [...] at the right lung base. Reading Location: [facility]1 Echocardiogram 03/04/25 20:08 Interpretation Summary Moderate [...] in right lung base aeration. Reading Location: [place] [address] Charges/Coding Visit Charges Inpatient E&M: 55881 [facility] Hosp L2 03/06/25 1546 Cosigner Signature (if applicable): CC: ~ Signed [facility]07-18-2025 Consult note Author Marjorie Green [facility] Note Date/Time March 06, 2025 9:33 am [facility] Medical Records Department [address] [place] [address] Consultation - Cardiology 03/06/25 0926 MR#: [id number] Acct: [id number] Name: PEDRO HILLMAN Rep #:[id number] : 1945 80 From: Marjorie Green MD PCP: Dr. Tonio Fajardo, DO Status:ADM IN Location: [place] [id number]- [id number] Assessment & Plan Assessment/Plan (1) Atrial [...] his shortness of breath is much improved. [facility] Medical History (Updated 03/06/25 @ 09:[address] Marjorie Green MD) Other persistent atrial fibrillation New onset atrial flutter COVID Wears hearing aid in both ears Former smoker Coronary artery disease Peripheral vascular occlusive disease BPH (benign prostatic hyperplasia) Chronic kidney disease, stage 3 Atherosclerosis of coronary artery of citizen [place] heart without angina pectoris Hyperlipidemia Lower extremity [...] applicable): CC: Dr. Tonio Fajardo, DO~ Signed [facility] Work Phone: 1(471) 799-292407-18-2025 Consult note [facility] Medical Records Department [address] [place] [address] Consultation - Cardiology 03/06/25925 MR#: [id number] Acct: [id number] Name: PEDRO HILLMAN Rep #:[id number] : 1945 80 From: Marjorie Green MD PCP: Dr. Tonio Fajardo, Status:ADM IN Location: [place] [address] Assessment & Plan Assessment/Plan (1) Atrial flutter [...] his shortness of breath is much improved. [facility] Medical History (Updated 03/06/25 @ 09:[address] Marjorie Green MD) Other persistent atrial fibrillation New onset atrial flutter COVID Wears hearing aid in both ears Former smoker Coronary artery disease Peripheral vascular occlusive disease BPH (benign prostatic hyperplasia) Chronic kidney disease, stage 3 Atherosclerosis of coronary artery of citizen [place] heart without angina pectoris Hyperlipidemia Lower extremity [...] applicable): CC: Dr. Tonio Fajardo, DO~ Signed [facility]07-17-2025 Progress note Author Deric Lantigua [facility] Note Date/Time March 05, 2025 3:56 pm [facility] Medical Records Department [address] [place] [address] Progress Note - Hospitalist 03/05/25718 MR#: [id number] Acct: [id number] Name: PEDRO HILLMAN Rep #:[id number] : 1945 80 From: Deric Smith PCP: Dr. Tonio Fajardo DO Status:ADM IN Location: [place] [address] Reason for Visit Chief Complaint: SOB. Objective [...] 78.1 H, Lymph % (Auto) 10.1 L, [place] % (Auto) 9.1, Eos % (Auto) 1.6, [...] Clarity Cloudy, Urine pH 6.5, Ur Specific Riddle 1.010, Urine Protein 100 H, Urine Glucose [...] (Auto) 76.4 H, Lymph % (Auto) 9.5L, [place] % (Auto) 11.4 H, Eos % (Auto) [...] at the right lung base. Reading Location: [facility] Chest X-Ray 03/05/25 04:30 IMPRESSION: Small interval improvement in right lung base aeration. Reading Location: [place] [address] Rhythm Strip Rhythm Strip: Atrial flutter Rate: [...] hematuria: (8) Atherosclerosis of coronary artery of citizen [place] heart without angina pectoris: QUALIFIERS: Coronary Disease-Associated Artery/Lesion type: nativeartery Qualified Code(s): I25.10 - Atherosclerotic heart disease of [place] coronary artery without angina pectoris (9) Overweight [...] no significant delta change. ACS ruled out. Motor Assembly Supervisor is consulted. Repeat proBNP is elevated but it does not reflect treatment response as it should not be ordered for that. Clinically patient is feeling better with improvement in shortness of breath. 2D echo 03/05 reported EF 55%, PASP 42 mmHg with moderate TR, moderate VA and mild PI. 2. EKG evidence of Atrial Flutter; with Rapid Ventricular Response of ~117 bpm even after being treated with IV Cardizem bolus probably precipitating CHF exacerbation: Patient already on apixaban patient had digoxin. TSH 3.7 normal. Twelve-lead EKG individually reviewed and shows atrial flutter 2 is to 1 conduction. Later on irregular variable conduction on monitoring coordinator 3. CKD; stage IIIb with hyperkalemia, present [...] Clarity Cloudy, Urine pH 6.5, Ur Specific Riddle 1.010, Urine Protein 100 H, Urine Glucose [...] (Auto) 76.4 H, Lymph % (Auto) 9.5L, [place] % (Auto) 11.4 H, Eos % (Auto) [...] at the right lung base. Reading Location: [facility]1 Echocardiogram 03/04/25 20:08 Interpretation Summary Moderate [...] in right lung base aeration. Reading Location: [place] [address] Charges/Coding Addendum Addendum: Total time of the [...] imagingis 35 minutes. Visit Charges Inpatient E&M: 43254 Subs Hosp L3 03/05/25 1556 <Electronically signed by Deric Lantigua MD> Cosigner Signature (if applicable): CC: ~ Signed [facility] Work Phone: 1(790) 622-733007-17-2025 Progress note [facility] Medical Records Department [address] [place] [address] Progress Note - Hospitalist 03/05/25 0719 MR#: [id number] Acct: [id number] Name: PEDRO HILLMAN Rep #:[id number] : 1945 80 From: Deric Smith PCP: Dr. Tonio Fajardo, DO Status:ADM IN Location: [place] [address]- 1 Reason for Visit Chief Complaint: SOB. [...] 78.1 H, Lymph % (Auto) 10.1 L, [place] % (Auto) 9.1, Eos % (Auto) 1.6, [...] Clarity Cloudy, Urine pH 6.5, Ur Specific Riddle 1.010, Urine Protein 100 H, Urine Glucose [...] (Auto) 76.4 H, Lymph % (Auto) 9.5L, [place] % (Auto) 11.4 H, Eos % (Auto) [...] at the right lung base. Reading Location: [facility] Chest X-Ray 03/05/25 04:30 IMPRESSION: Small interval improvement in right lung base aeration. Reading Location: [facility] Rhythm Strip Rhythm Strip: Atrial flutter Rate: [...] hematuria: (8) Atherosclerosis of coronary artery of citizen [place] heart without angina pectoris: QUALIFIERS: Coronary Disease-Associated Artery/Lesion type: nativeartery Qualified Code(s): I25.10 - Atherosclerotic heart disease of [place] coronary artery without angina pectoris (9) Overweight [...] no significant delta change. ACS ruled out. Motor Assembly Supervisor is consulted. Repeat proBNP is elevated but it does not reflect treatment response as it should not be ordered for that. Clinically patient is feeling better with improvement in shortness of breath. 2D echo 03/05 reported EF 55%, PASP 42 mmHg with moderate TR, moderate VA and mild PI. 2. EKG evidence of Atrial Flutter; with Rapid Ventricular Response of ~117 bpm even after being treated with IV Cardizem bolus probably precipitating CHF exacerbation: Patient already on apixaban patient had digoxin. TSH 3.7 normal. Twelve-lead EKG individually reviewed and shows atrial flutter 2 is to 1 conduction. Later on irregular variable conduction on monitoring coordinator 3. CKD; stage IIIb with hyperkalemia, present [...] Clarity Cloudy, Urine pH 6.5, Ur Specific Riddle 1.010, Urine Protein 100 H, Urine Glucose [...] (Auto) 76.4 H, Lymph % (Auto) 9.5L, [place] % (Auto) 11.4 H, Eos % (Auto) [...] at the right lung base. Reading Location: [facility]1 Echocardiogram 03/04/25 20:08 Interpretation Summary Moderate [...] in right lung base aeration. Reading Location: [place] [address] Charges/Coding Addendum Addendum: Total time of the [...] imagingis 35 minutes. Visit Charges Inpatient E&M: 23156 Subs Hosp L3 03/05/25 7239 Cosigner Signature (if applicable): CC: ~ Signed [facility]07-17-2025 History and physical note Author Nicola Madison [facility] Note Date/Time March 05, 2025 6:22 am [facility] Medical Records Department [address] [place] [address] H&P Exam - Hospitalist 03/04/251921 MR#: [id number] Acct: [id number] Name: PEDRO HILLMAN Rep #:[id number] : 1945 80 From: Nicola Levy DO PCP: Dr. Tonio Fajardo, DO Status:ADM IN Location: [facility] [id number]- [id number] HPI - General General Date of [...] of COVID-19 and OA who presents to [facility] ER complaining of SOB. Mr. Hillman reports [...] ~53% with moderate mitral annular calcification and zdoc-as-wojlfewx (~1-2+) mitral valve insufficiency with a pulmonary [...] is expected to extend beyond 2 midnights. [facility] Medical History Other persistent atrial fibrillation New onset atrial flutter COVID Wears hearing aid in both ears Former smoker Coronary artery disease Peripheral vascular occlusive disease BPH (benign prostatic hyperplasia) Chronic kidney disease, stage 3 Atherosclerosis of coronary artery of [place] heart without angina pectoris Hyperlipidemia Lower extremity [...] 78.1 H, Lymph % (Auto) 10.1 L, [place] % (Auto) 9.1, Eos % (Auto) 1.6, [...] at the right lung base. Reading Location: [facility] Assessment & Plan Assessment/Plan (1) CHF exacerbation: QUALIFIERS: Heart failure type: unspecified Qualified Code(s): I50.9 - Heart failure, unspecified (2) Atrial flutter with rapid ventricular response: (3) Chronic anticoagulation: (4) Elevated troponin: (5) Hyperkalemia: (6) Pleural effusion on right: (7) Acute cystitis with hematuria: (8) Atherosclerosis of coronary artery of citizen [place] heart without angina pectoris: QUALIFIERS: Coronary Disease-Associated Artery/Lesion type: nativeartery Qualified Code(s): I25.10 - Atherosclerotic heart disease of [place] coronary artery without angina pectoris (9) Overweight [...] LVEF. Serialize troponin. Finally, we will consult [facility] see this patient on rounds [...] 75 minutes. Charges/Coding Visit Charges Inpatient E&M: 86847 Init Hosp L3 03/05/25 0622 <Electronically signed by Nicola Lindsey DO> Cosigner Signature (if applicable): CC: Dr. Nicola Lindsey, DO; Dr. Tonio Fajardo, DO~ Signed [facility] Work Phone: 1(482) 448-196107-17-2025 History and physical note [facility] Medical Records Department [address] [place] [address] H&P Exam - Hospitalist 03/04/251921 MR#: [id number] Acct: [id number] Name: PEDRO HILLMAN Rep #:[id number] : 1945 80 From: Nicola Levy DO PCP: Dr. Tonio Fajardo DO Status:ADM IN Location: [place] [id number]- 1 HPI - General General Date of [...] of COVID-19 and OA who presents to [facility] ERcomplaining of SOB. Mr. Hillman reports his [...] ~53% with moderate mitral annular calcification and wwuo-qh-weskhgaf (~1-2+) mitral valve insufficiency with a pulmonary [...] is expected to extend beyond 2 midnights. [facility] Medical History Other persistent atrial fibrillation New onset atrial flutter COVID Wears hearing aid in both ears Former smoker Coronary artery disease Peripheral vascular occlusive disease BPH (benign prostatic hyperplasia) Chronic kidney disease, stage 3 Atherosclerosis of coronary artery of [place] heart without angina pectoris Hyperlipidemia Lower extremity [...] 78.1 H, Lymph % (Auto) 10.1 L, [place] % (Auto) 9.1, Eos % (Auto) 1.6, [...] at the right lung base. Reading Location: [place] [address] Assessment & Plan Assessment/Plan (1) CHF exacerbation: QUALIFIERS: Heart failure type: unspecified Qualified Code(s): I50.9 - Heart failure, unspecified (2) Atrial flutter with rapid ventricular response: (3) Chronic anticoagulation: (4) Elevated troponin: (5) Hyperkalemia: (6) Pleural effusion on right: (7) Acute cystitis with hematuria: (8) Atherosclerosis of coronary artery of citizen [place] heart without angina pectoris: QUALIFIERS: Coronary Disease-Associated Artery/Lesion type: nativeartery Qualified Code(s): I25.10 - Atherosclerotic heart disease of [place] coronary artery without angina pectoris (9) Overweight [...] LVEF. Serialize troponin. Finally, we will consult [facility] see this patient on rounds [...] 75 minutes. Charges/Coding Visit Charges Inpatient E&M: 97732 Init Hosp L3 07/17/25 0622 Cosigner Signature (if applicable): CC: Dr. Nicola Lindsey DO; Dr. Tonio Fajardo DO~ Signed [facility]07-17-2025 Radiology Diagnostic study note [facility] Imaging Services [address] [place] [address] Chest 1 View (Portable) MR#: [id number] Acct: [id number] Name: PEDRO HILLMAN Rep #: [id number] : 1945 M 80 From: Regi Babb MD PCP: Dr. Tonio Fajardo DO Status: ADM IN Study:Chest 1 View (Portable) Date of Exam: 03/05/25 Exam# [id number] Ordering Dr: Nicola Mukherjee DO PROCEDURE: CHEST [...] Reading Location: [facility] CC: Dr. Nicola Lindsey DO; Dr. Tonio Fajardo DO ~ Extract Puller: Signed [facility]07-16-2025 Evaluation note* Diagnosis Onset Date Resolution Status Admit Date Acute cystitis with hematuria acute March 04, 2025 7:57pm Atrial flutter with rapid ventricular response acute March 04, 2025 7:57pm Chronic anticoagulation acute J 2024 7:57pm Coronary artery disease acute J 2024 7:57pm Diabetes acute March 04 7:57pm [...] 042024 7:57pm Atherosclerosis of coronary artery of citizen [place] heart without angina pectoris chronic March 04, 2025 7:57pm CHF exacerbation chronic February 7:57pm Hypertension chronic March 04, 7:57pm [facility] Work Phone: 1(163) 574-158607-16-2025 Evaluation note* Diagnosis Onset Date Resolution Status Admit Date Acute cystitis with hematuria acute March 04, 2025 7:57pm Atrial flutter with rapid ventricular response acute March 04, 2025 7:57pm Chronic anticoagulation acute J shanda 2024 7:57pm Coronary artery disease acute J [...] 042024 7:57pm Atherosclerosis of coronary artery of citizen [place] heart without angina pectoris chronic March 04, [...] 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 March 17, 2025 12:51pm [facility] Work Phone: 1(646) 182-396707-16-2025 Evaluation note* Diagnosis Onset Date Resolution Status Admit Date Acute cystitis with hematuria acute March 04, 2025 7:57pm Atrial flutter with rapid ventricular response acute March 04, 2025 7:57pm Chronic anticoagulation acute J shanda 2024 7:57pm Coronary artery disease acute J [...] 042024 7:57pm Atherosclerosis of coronary artery of citizen [place] heart without angina pectoris chronic March 04, [...] pass 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 April 05 7:55pm [facility] Work Phone: 1(492) 372-769907-16-2025 Evaluation note* Diagnosis Onset Date Resolution Status Admit Date Acute cystitis with hematuria acute March 04, 2025 7:57pm Atrial flutter with rapid ventricular response acute March 04, 2025 7:57pm Chronic anticoagulation acute J shanda 2024 7:57pm Coronary artery disease acute J [...] 042024 7:57pm Atherosclerosis of coronary artery of citizen [place] heart without angina pectoris chronic March 04, [...] aortocoronary by pass graft 2012April 05 7:55pm Heart block AV complete acute A ugust 2024 11:14am Presence of cardiac pacemaker acute April 10, 2025 11:14am [facility] Work Phone: [phone] 756-702507-16-2025 Evaluation note* Diagnosis Onset Date Resolution Status Admit Date Acute cystitis with hematuria acute March 04, 2025 7:57pm Atrial flutter with rapid ventricular response acute March 04, 2025 7:57pm Chronic anticoagulation acute J shanda 2024 7:57pm Coronary artery disease acute J [...] 042024 7:57pm Atherosclerosis of coronary artery of citizen [place] heart without angina pectoris chronic March 04, [...] April 10, 2025 6:33pm Debility acute April 10, 2 025 6:33pm History of lung cancer acute [place] 2024 6:33pm Pleural effusion on right acute April 10, 2025 6:33pm Tachy-brittany syndrome acute Augu [facility] 2024 6:33pm Type 2 diabetes mellitus wit h hyperglycemia acute April 10 6:33pm COPD (chronic obstructive pulmonary disease) chronic April 10, 2025 6:33pm Hyperlipidemia chronic March 6:33pm UTI (urinary tract infection) resolv ed April 10, 2025 6:33pm [facility] Work Phone: 1(648) 135-227507-16-2025 Discharge summary Author Chris Ochoa [facility] Note Date/Time March 04, 2025 7:26 pm [facility] Medical Records Department [address] [place] [address] Emergency Department Summary 03/04/25 MR#: [id number] Acct: [id number] Name: PEDRO HILLMAN Rep #:[id number] : 1945 80 From: Chris Ochoa MD [...] stage 3 Atherosclerosis of coronary artery of citizen [place] heart without angina pectoris Hyperlipidemia Lower extremity [...] signs. Back nontender. Movingall 4 extremities. 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 Calves nontender without edema or cords. [...] 78.1 H Lymph % (Auto) 10.1 L [place] % (Auto) 9.1 Eos % (Auto) 1.6 [...] at the right lung base. Reading Location: [place] [address] Chest x-ray, 2 views, AP and lateral, [...] Chronic anticoagulation Disposition Disposition: Acute Care Hospital [facility] What to do if you have Problems For any increased pain, shortness of breath, bleeding, nausea or vomiting, chestpain, or any unexpected problems, contact your Primary Care Provider. Call [facility] ([phone]) or report to the closest Emergency Room. Call 911 if necessary. 03/04/251925 <Electronically signed by Chris Ochoa MD> Cosigner Signature (if applicable): CC: Dr. Tonio Fajardo, ~ Signed [facility] Work Phone: 1(635) 748-925807-16-2025 Discharge summary [facility] Medical Records Department [address] [place] [address] Emergency Department Summary 03/04/25 MR#: [id number] Acct: [id number] Name: PEDRO HILLMAN Rep #:[id number] : 1945 80 From: Chris Ochoa MD [...] stage 3 Atherosclerosis of coronary artery of citizen [place] heart without angina pectoris Hyperlipidemia Lower extremity [...] signs. Back nontender. Movingall 4 extremities. 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 Calves nontender without edema or cords. [...] 78.1 H Lymph % (Auto) 10.1 L [place] % (Auto) 9.1 Eos % (Auto) 1.6 [...] at the right lung base. Reading Location: [place] [address] Chest x-ray, 2 views, AP and lateral, [...] Chronic anticoagulation Disposition Disposition: Acute Care Hospital [facility] What to do if you have Problems For any increased pain, shortness of breath, bleeding, nausea or vomiting, chestpain, or any unexpected problems, contact your Primary Care Provider. Call [facility] ([phone]) or report tothe closest Emergency Room. Call 911 if necessary. 03/04/251925 Cosigner Signature (if applicable): CC: Dr. Tonio Fajardo DO ~ Signed [facility]07-16-2025 Radiology Diagnostic study note [facility] Imaging Services [address] [place], [place] [address] Chest PA and Lateral MR#: [id number] Acct: [id number] Name: PEDRO HILLMAN Rep #: [id number] : 1945 M 80 From: Tom Flores MD PCP: Dr. Tonio Fajardo DO Status: PRE ER Study:Chest PA and Lateral Date of Exam: 03/04/25 Exam# [id number] Ordering Dr: Camila Ochoa MD PROCEDURE: CHEST [...] at the right lung base. Reading Location: [place] [address] CC: Dr. Chris Ochoa MD; Dr. Tonio Fajardo DO ~ Extract Puller: Signed [facility]07-16-2025 Discharge summary Author Chris Ochoa [facility] Note Date/Time March 04, 2025 7:26 pm [facility] Medical Records Department [address] [place] [address] Emergency Department Summary 03/04/25 MR#: [id number] Acct: [id number] Name: PEDRO HILLMAN Rep #:[id number] : 1945 80 From: Chris Ochoa MD [...] stage 3 Atherosclerosis of coronary artery of citizen [place] heart without angina pectoris Hyperlipidemia Lower extremity [...] signs. Back nontender. Movingall 4 extremities. 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 Calves nontender without edema or cords. [...] 78.1 H Lymph % (Auto) 10.1 L [place] % (Auto) 9.1 Eos % (Auto) 1.6 [...] at the right lung base. Reading Location: [place] [address] Chest x-ray, 2 views, AP and lateral, [...] Chronic anticoagulation Disposition Disposition: Acute Care Hospital [facility] What to do if you have Problems For any increased pain, shortness of breath, bleeding, nausea or vomiting, chestpain, or any unexpected problems, contact your Primary Care Provider. Call [facility] ([phone]) or report to the closest Emergency Room. Call 911 if necessary. 03/04/251925 <Electronically signed by Chris Ochoa MD> Cosigner Signature (if applicable): CC: Dr. Tonio Fajardo, ~ Signed [facility] Work Phone: 1(668) 363-432403-20-2025 Evaluation note* Diagnosis Onset Date Resolution Status [...] 2025 7:57pm Atherosclerosis of coronary artery of citizen [place] heart without angina pectoris chronic March 04, 2025 7:57pm CHF exacerbation chronic February 7:57pm [facility] Work Phone: 1([phone]) 661-896003-13-2025 Radiology Diagnostic study note [facility] Imaging Services [address] [place], [place] [address] CT Chest AND Abd W/ Contrast MR#: [id number] Acct: [id number] Name: PEDRO HILLMAN Rep #: [id number] : 1945 M 79 From: Tom Flores MD PCP: Dr. Tonio Fajardo DO Status: REG CLI Study:CT Chest AND Abd W/ Contrast Date of Ex am: 10/30/24 Exam# [id number] Ordering Dr: Frantz Zamora MD PROCEDURE: CT [...] Zamora MD; Dr. Tonio Fajardo DO ~ Extract Puller: Signed [facility]02-28-2025 Procedure notey [facility] Pulmonary Services/Neurology [address] [place] [address] MR#: [id number] Acct: [id number] Name: PEDRO HILLMAN Rep #:[id number] : 1945 79 From: Tyrell Uriarte DO Referring Dr: Lorie Mart DIRECTOR OF DIETARY DIRECTOR OF DIETARY-C Status: REG CLI Location: PSN Date: Sex: M C PSN 6 Minute Walk Test 6 Minute Walk Test 6 Minute Walk Test: 6 Minute Walk Test PSN:6-Minute Walk Test Start: 10/16/24 13:24 Freq: Status: Active Protocol: RESP.6MINW Document 10/16/24 13:24 [facility] (Rec: 10/16/24 13:34 [facility] [id number]) 6 Minute Walk Test Date Performed 10/16/24 Time Performed 12:30 Height 5 ft 6 in Weight: 174 lb Weight in Pounds 174.[address]: Lorie Mart DIRECTOR OF DIETARY Assistive device Walker used: Pre-test Oxygen Delivery [...] Date Dictated: 10/17/24 1004 Date Transcribed: 10/17/241003 Extract Puller: Dr. Tyrell Uriarte DO Signed [facility]02-06-2025 Evaluation note* Diagnosis Onset Date Resolution Status [...] right lung chronic Marlon h 2024 2:10pm [facility] Work Phone: [phone] Evaluation note* Diagnosis Onset Date Resolution Status [...] right lung chronic Marlon h 2024 1:24pm [facility] Work Phone: 1(801) [phone] Procedure [facility] 04-18-2023 Progress note Author Joaquim Suárez [facility] April 18, 2023 7:12pm Note Date/Time April 18, 2023 3: 56pm [facility] [address] [place] [address] Progress Note - Wound Care 04/18/23 1549 MR#: [id number] Acct: [id number] Name: KADYPEDRO Nora Rep #:[id number] : 1945 78 From: Joaquim Smith PM [...] Date Recorded By Document 04/02/23 11:24 PL [id number] 04/02/23 11:25 PL Document 04/18/23 13:24 [facility] [id number] 04/18/23 13:30 BM 04/02/23 04/18/23 11:24 13:24 - Today's Visit Information Type of service Follow-up Visit Follow-up Visit (Physician/CONCRETE STONE FINISHER (Physician/CONCRETE STONE FINISHER ) ) Arrival Mode Ambulatory,Cane Ambulatory,Cane Transfer [...] Recorded Date Recorded By Document 04/18/23 13:24 [facility] [id number] 04/18/23 13:30 [facility] 04/18/23 13:24 Wound Center Nurse 1 [...] Attached -Granulation Amt Large (67-100%) -Granulation Quality [place] -Slough/Fibrin No -Necrosis Amt None Present (0 [...] Recorded Date Recorded By Document 04/02/23 11:42 [id number] 04/02/23 11:53 Document 04/18/23 14:03 [id number] 04/18/23 14:04 04/02/23 04/18/23 11:42 14:03 Wound [...] Recorded Date Recorded By Document 04/02/23 11:54 [id number] 04/02/23 11:54 Document 04/18/23 14:24 RB [id number] 04/18/23 14:25 RB 04/02/23 04/18/23 11:54 14:24 [...] Transportation Private Auto Private Auto Accompanied by DIL Medication Reconcilliation completed & Yes No provided to patient/care provider Clinical Summary of Care Provided Yes Yes Assessment/Plan Assessment/Plan (1) Type 2 diabetes mellitus with diabetic polyneuropathy: CODE(S): E11.42 - Type 2 diabetes mellitus with diabetic polyneuropathy QUALIFIERS: Diabetes mellitus nursing home insulin use: with terminal computer operator use Qualified Code(s): E11.42 - Type 2 diabetes mellitus with diabetic polyneuropathy; Z79.4 - rn long term care (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 of insulin PLAN: Educated the [...] Cosigner Signature (if applicable): CC: ~ Signed [facility] Work Phone: 1(937) 108-224408-20-2023 Progress note Author Bonny Glynn [facility] April 07, 2023 10:44pm Note Date/Time April 02, 2023 12 :35pm [facility] [address] [place] [address] Progress Note - Wound Care 04/02/23 1235 MR#: [id number] Acct: [id number] Name: PEDRO HILLMAN Rep #:[id number] : 1945 78 From: Bonny garcia DIRECTOR OF DIETARY DIRECTOR OF DIETARY-C PCP: Dr. Tonio Fajardo, DO Status:REG RCR [...] 11:24 04/02/23 11:24 Charges/Coding Procedures Integumentary 111xxx-113xx: 35766 Mihaela subq tissue 20 sq cm/< Debridement [...] Start: 04/02/23 11:22 Freq: Status: Active Protocol: URBAN.[place]PAT[place] Activity Type Activity Date Activity User E-sign Co-sign Detail Recorded Client Recorded Date Recorded By Document 04/02/23 11:24 [id number] 04/02/23 11:25 04/02/23 11:24 - Today's Visit Information Type of service Follow-up Visit (Physician/CONCRETE STONE FINISHER ) Arrival Mode Ambulatory,Cane Transfer Assistance None [...] Patient Pain Free? Yes WC - Nurse 2 - General Ulcer CM Notes Start: 04/02/23 11:22 Freq: Status: Active Protocol: Activity Type Activity Date Activity User E-sign Co-sign Detail Recorded Client Recorded Date Recorded By Document 04/02/23 11:42 DORA [id number] 04/02/23 11:53 04/02/23 11:42 Wound Center Nurse [...] Date Recorded By Document 04/02/23 11:54 DORA [id number] 04/02/23 11:54 04/02/23 11:54 Wound Care Center [...] that the wound center will have a fancy packer, will have the patient see him for further evaluation and treatment. Follow up two weeks. Call or come in sooner if develop any questions or concerns. 04/07/23 5218 <Electronically signed by Bonny Glynn NP DIRECTOR OF DIETARY-C> Cosigner Signature (if applicable): CC: ~ Signed [facility] Work Phone: 1(765) [phone] Progress note Author Bonny Glynn [facility] March 05, 2023 1:06pm Note Date/Time March 05, 2023 12:2 9pm [facility] [address] [place] [address] Progress Note - Wound Care 03/05/23 1226 MR#: [id number] Acct: [id number] Name: PEDRO HILLMAN Rep #:[id number] : 1945 78 From: Bonny garcia NP DIRECTOR OF DIETARY-C PCP: Dr. Tonio Fajardo, DO Status:REG RCR [...] Method Room Air Charges/Coding Procedures Integumentary 111xxx-113xx: 03552 Mihaela subq tissue 20 sq cm/< Debridement [...] Recorded Date Recorded By Document 02/19/23 13:34 [id number] 02/19/23 13:36 Document 03/05/23 11:26 [id number] 03/05/23 11:29 02/19/23 03/05/23 13:34 11:26 - Today's Visit Information Type of service Follow-up Visit Follow-up Visit (Physician/CONCRETE STONE FINISHER (Physician/CONCRETE STONE FINISHER ) ) Arrival Mode Ambulatory Ambulatory,Cane Accompanied [...] Recorded Date Recorded By Document 02/19/23 13:34 [id number] 02/19/23 13:36 Document 03/05/23 11:26 [id number] 03/05/23 11:29 02/19/23 03/05/23 13:34 11:26 Wound [...] Large (67-100%) Small (1-33%) -Granulation Quality [place] -Slough/Fibrin No -Necrosis Amt Small (1-33%) -Structure [...] Recorded Date Recorded By Document 02/19/23 13:37 [id number] 02/19/23 13:39 Document 03/05/23 11:37 [id number] 03/05/23 11:46 02/19/23 03/05/23 13:37 11:37 Wound [...] Date Recorded By Document 02/19/23 13:43 MW [id number] 02/19/23 13:44 MW Document 03/05/23 11:53 BM [id number] 03/05/23 11:55 BM 02/19/23 03/05/23 13:43 11:53 [...] Provided Yes Notes: DRESSING APPLIED PER Fabio WOOSD RN. TOLERATED WELL. Assessment/Plan Assessment/Plan (1) Type [...] 1306 <Electronically signed by Bonny Glynn NP DIRECTOR OF DIETARY-C> Cosigner Signature (if applicable): CC: ~ Signed [facility] Work Phone: 1([phone]) [phone] Progress note Author Bonny [facility] February 19, 2023 2:23pm Note Date/Time February 19, 2023 2:16p m [facility] [address] [place] [address] Progress Note - Wound Care 02/19/23 1412 MR#: [id number] Acct: [id number] Name: PEDRO HILLMAN Rep #:[id number] : 1945 78 From: Bonny garcia NP DIRECTOR OF DIETARY-C PCP: Dr. Tonio Fajardo, DO Status:REG RCR [...] 13:34 02/19/23 13:34 Charges/Coding Procedures Integumentary 111xxx-113xx: 56901 Mihaela subq tissue 20 sq cm/< Debridement [...] Date Recorded By Document 02/19/23 13:34 DORA [id number] 02/19/23 13:36 02/19/23 13:34 - Today's Visit Information Type of service Follow-up Visit (Physician/CONCRETE STONE FINISHER ) Arrival Mode Ambulatory Patient Requires Transmission-Based [...] Recorded Date Recorded By Document 02/19/23 13:34 [id number] 02/19/23 13:36 02/19/23 13:34 Wound Center Nurse [...] Date Recorded By Document 02/19/23 13:37 JF [id number] 02/19/23 13:39 JF 02/19/23 13:37 Wound Center [...] Date Recorded By Document 02/19/23 13:43 MW [id number] 02/19/23 13:44 MW 02/19/23 13:43 Wound Care [...] 1423 <Electronically signed by Bonny Glynn NP DIRECTOR OF DIETARY-C> Cosigner Signature (if applicable): CC: ~ Signed [facility] Work Phone: [phone]) 468-839706-19-2023 Progress note Author Bonny Glynn [facility] February 05, 2023 2:37pm Note Date/Time February 05, 2023 1:59 pm [facility] [address] [place] [address] Progress Note - Wound Care 02/05/23 1359 MR#: [id number] Acct: [id number] Name: PEDRO HILLMAN Rep #:[id number] : 1945 78 From: Bonny garcia NP DIRECTOR OF DIETARY-C PCP: Dr. Tonio Fajardo, DO Status:REG RCR Location: History of Present Illness Date of Service: 02/05/23 Chief Complaint: right medial foot ulcer History of Wound: This 78-year-old male returns to the wound healing clinic for reoccurrence of a right medial foot ulcer. Wound care has been Moistened Cass covered with [place] SAP dressing. Patient diabetic neuropathic. Patient dealing [...] Method Room Air Charges/Coding Procedures Integumentary 111xxx-113xx: 88077 Mihaela subq tissue 20 sq cm/< Debridement [...] Recorded Date Recorded By Document 01/22/23 13:45 [id number] 01/22/23 13:48 DL Document 02/05/23 13:10 [facility] [id number] 02/05/23 13:15 [facility] 01/22/23 02/05/23 13:45 13:10 - Today's Visit Information Type of service Follow-up Visit Follow-up Visit (Physician/CONCRETE STONE FINISHER (Physician/CONCRETE STONE FINISHER ) ) Arrival Mode Ambulatory Ambulatory,Cane Transfer [...] Date Recorded By Document 01/22/23 13:45 DL [id number] 01/22/23 13:48 DL Document 02/05/23 13:10 [facility] [id number] 02/05/23 13:15 BMF 01/22/23 02/05/23 13:45 13:10 [...] Present (0 Large (67-100%) %) -Granulation Quality [place] -Slough/Fibrin Yes -Necrosis Amt Small (1-33%) Small [...] Used 5% Lidocaine 5% Lidocaine Gel Gel URBAN - Nurse 2 - General Ulcer CM Notes Start: 01/22/23 13:42 Freq: Status: Active Protocol: Activity Type Activity Date Activity User E-sign Co-sign Detail Recorded Client Recorded Date Recorded By Document 01/22/23 14:22 DORA [id number] 01/22/23 14:23 DORA 01/22/23 14:22 Wound Center [...] Recorded Date Recorded By Document 01/22/23 14:30 ORESTES [id number] 06/05/23 14:31 DL Document 02/05/23 13:49 [facility] [id number] 02/05/23 13:49 BMF 01/22/23 02/05/23 14:30 13:49 [...] if develop any questions or concerns. 02/05/23 0966 <Electronically signed by Bonny Glynn NP DIRECTOR OF DIETARY-C> Cosigner Signature (if applicable): CC: ~ Signed [facility] Work Phone: [phone] Progress note [facility] January 22, 2023 3:47pm Note Date/Time January 22, 2023 3:31p m [facility] [address] [place] [address] Progress Note - Wound Care 01/22/23 1529 MR#: [id number] Acct: [id number] Name: PEDRO HILLMAN Rep #:[id number] : 1945 78 From: Bonny garcia NP DIRECTOR OF DIETARY-C PCP: Dr. Tonio Fajardo, DO Status:REG [facility] Location: History of Present Illness Date of Service: 01/22/23 Chief Complaint: right medial foot ulcer History of Wound: This 78-year-old male returns to the wound healing clinic for reoccurrence of a right medial foot ulcer. Wound care has been Moistened Cass covered with [place] SAP dressing. Patient diabetic neuropathic. Patient dealing [...] 13:45 01/22/23 13:45 Charges/Coding Procedures Integumentary 111xxx-113xx: 53050 Mihaela subq tissue 20 sq cm/< Debridement [...] Date Recorded By Document 01/22/23 13:45 DL [id number] 01/22/23 13:48 DL 01/22/23 13:45 - Today's Visit Information Type of service Follow-up Visit (Physician/CONCRETE STONE FINISHER ) Arrival Mode Ambulatory Transfer Assistance None [...] Date Recorded By Document 01/22/23 13:45 DL [id number] 01/22/23 13:48 DL 01/22/23 13:45 Wound Center [...] Date Recorded By Document 01/22/23 14:22 DORA [id number] 01/22/23 14:23 DORA 01/22/23 14:22 Wound Center [...] Date Recorded By Document 01/22/23 14:30 DL [id number] 01/22/23 14:31 DL 01/22/23 14:30 Wound Care [...] if develop any questions or concerns. 01/22/23 3614 <Electronically signed by Bonny Glynn NP DIRECTOR OF DIETARY-C> Cosigner Signature (if applicable): CC: ~ Signed [facility] Work Phone: 1(586) 526-226105-22-2023 Progress note Author Bonny Glynn [facility] January 08, 2023 2:17pm Note Date/Time January 08, 2023 2:10p m [facility] [address] [place] [address] Progress Note - Wound Care 01/08/23 1407 MR#: [id number] Acct: [id number] Name: PEDRO HILLMAN Rep #:[id number] : 1945 77 From: Bonny garcia DIRECTOR OF DIETARY DIRECTOR OF DIETARY-C PCP: Dr. Tonio Fajardo, DO Status:REG RCR Location: History of Present Illness Date of Service: 01/08/23 Chief Complaint: right medial foot ulcer History of Wound: This 77-year-old male returns to the wound healing clinic for reoccurrence of a right medial foot ulcer. Wound care has been Moistened Cass covered with [place] SAP dressing. Patient diabetic neuropathic. Patient dealing [...] 14:53 01/08/23 13:37 Charges/Coding Procedures Integumentary 111xxx-113xx: 53537 Mihaela subq tissue 20 sq cm/< Debridement [...] Date Recorded By Document 12/18/22 13:20 PL [id number] 12/18/22 13:27 PL Document 12/25/22 14:53 [id number] 12/25/22 14:54 JF Document 01/08/23 13:37 AK [id number] 01/08/23 13:39 AK 12/18/22 12/25/22 01/08/23 13:20 14:53 13:37 - Today's Visit Information Type of service Follow-up Visit Follow-up Visit Follow-up Visit (Physician/CONCRETE STONE FINISHER (Physician/CONCRETE STONE FINISHER (Physician/CONCRETE STONE FINISHER ) ) ) Arrival Mode Ambulatory Ambulatory [...] Date Recorded By Document 12/18/22 13:20 PL [id number] 12/18/22 13:27 PL Document 12/25/22 14:53 JF [id number] 12/25/22 14:54 JF Document 01/08/23 13:37 AK [id number] 01/08/23 13:39 AK 12/18/22 12/25/22 01/08/23 13:20 [...] (34-66%) Small (1-33%) Medium (34-66%) -Granulation Quality [place] Pale -Slough/Fibrin No Yes Yes -Necrosis Amt [...] Gel Gel Lower Limb Edema Present NA - Nurse 2 - General Ulcer CM Notes Start: 12/18/22 13:18 Freq: Status: Active Protocol: Activity Type Activity Date Activity User E-sign Co-sign Detail Recorded Client Recorded Date Recorded By Document 12/18/22 13:51 [id number] 12/18/22 13:53 Document 12/25/22 15:00 [id number] 12/25/22 15:10 Document 01/08/23 14:01 [id number] 01/08/23 14:02 12/18/22 12/25/22 01/08/23 13:51 15:00 [...] Date Recorded By Document 12/18/22 14:07 PL [id number] 12/18/22 14:07 PL Document 12/25/22 15:20 DL [id number] 12/25/22 15:20 DL 12/18/22 12/25/22 14:07 15:20 [...] if develop any questions or concerns. 01/08/23 5492 <Electronically signed by Bonny Glynn NP DIRECTOR OF DIETARY-C> Cosigner Signature (if applicable): CC: ~ Signed [facility] Work Phone: 1(746) 302-226005-14-[address] Ochoa [facility] December 31, 2022 12:58am Note Date/Time December 30, 2022 11:08 pm [facility] Medical Records Department [address] [place] [address] Emergency Department Summary 12/30/22 MR#: [id number] Acct: [id number] Name: PEDRO HILLMAN Rep #:[id number] : 1945 77 From: Chris Ochoa MD [...] History Anemia Atherosclerosis of coronary artery of [place] heart without angina pectoris BPH (benign prostatic [...] extremities. Nontender. No edema. No cellulitis. 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 Normal dorsi plantarflexion. Neurologically is awake [...] 83.3 H Lymph % (Auto) 6.4 L [place] % (Auto) 9.1 Eos % (Auto) 0.2 [...] Color Urine Clarity Urine pH Ur Specific Riddle Urine Protein Urine Glucose (UA) Urine Ketones Urine Occult Blood Urine Nitrite Urine Bilirubin Urine Urobilinogen Ur Leukocyte Esterase Urine RBC Urine WBC Ur Squamous Epith Cells Urine Bacteria Urine Mucus 12/30/22 12/30/22 22:50 23:59 WBC RBC Hgb Hct MCV MCH MCHC RDW Std Deviation RDW Coeff of Reggie Plt Count MPV Immature Gran % (Auto) Neut % (Auto) Lymph % (Auto) [place] % (Auto) Eos % (Auto) Baso % [...] Clarity Clear Urine pH 7.0 Ur Specific Riddle 1.005 Urine Protein 100 H Urine Glucose [...] 0:41 EDT Reading Location ID and State: [facility] / [place] Tel , Service support , Chest x-ray, [...] your Primary Care Provider. Call [facility] ([phone]) or report to the closest Emergency Room. Call 911 if necessary. 12/31/22 0058 <Electronically signed by Chris Ochoa MD> Cosigner Signature (if applicable): CC: Dr. Tonio Fajardo DO ~ Signed [facility] Work Phone: 1(248) 167-783905-08-2023 Progress note Author Bonny Glynn [facility] December 25, 2022 3:36pm Note Date/Time December 25, 2022 3:36pm [facility] [address] [place] [address] [place] [address] Progress Note - Wound Care 12/25/22 1531 MR#: [id number] Acct: [id number] Name: PEDRO HILLMAN Rep #:[id number] : 1945 77 From: Bonny garcia DIRECTOR OF DIETARY DIRECTOR OF DIETARY-C PCP: Dr. Tonio Fajardo, DO Status:REG RCR Location: History of Present Illness Date of Service: 12/25/22 Chief Complaint: right medial foot ulcer History of Wound: This 77-year-old male returns to the wound healing clinic for reoccurrence of a right medial foot ulcer. Wound care has been Moistened Cass covered with [place] SAP dressing. Patient diabetic neuropathic. Patient dealing [...] 14:53 12/25/22 14:53 Charges/Coding Procedures Integumentary 111xxx-113xx: 96616 Mihaela subq tissue 20 sq cm/< Debridement [...] Date Recorded By Document 12/18/22 13:20 PL [id number] 12/18/22 13:27 PL Document 12/25/22 14:53 [id number] 12/25/22 14:54 12/18/22 12/25/22 13:20 14:53 - Today's Visit Information Type of service Follow-up Visit Follow-up Visit (Physician/CONCRETE STONE FINISHER (Physician/CONCRETE STONE FINISHER ) ) Arrival Mode Ambulatory Ambulatory Transfer [...] Date Recorded By Document 12/18/22 13:20 PL [id number] 12/18/22 13:27 PL Document 12/25/22 14:53 [id number] 12/25/22 14:54 12/18/22 12/25/22 13:20 14:53 Wound [...] Amt Medium (34-66%) Small (1-33%) -Granulation Quality [place] -Slough/Fibrin No Yes -Necrosis Amt Medium (34-66%) [...] Recorded Date Recorded By Document 12/18/22 13:51 [id number] 12/18/22 13:53 Document 12/25/22 15:00 [id number] 12/25/22 15:10 12/18/22 12/25/22 13:51 15:00 Wound [...] Recorded Date Recorded By Document 12/18/22 14:07 [id number] 12/18/22 14:07 Document 12/25/22 15:20 DL [id number] 12/25/22 15:20 DL 12/18/22 12/25/22 14:07 15:20 [...] 1536 <Electronically signed by Bonny Glynn NP DIRECTOR OF DIETARY-C> Cosigner Signature (if applicable): CC: ~ Signed [facility] Work Phone: 1(625) 572-410505-01-2023 Progress note Author Bonny Glynn [facility] December 18, 2022 2:23pm Note Date/Time December 18, 2022 2:23pm [facility] [address] [place] [address] Progress Note - Wound Care 12/18/22 1419 MR#: [id number] Acct: [id number] Name: PEDRO HILLMAN Rep #:[id number] : 1945 77 From: Bonny garcia DIRECTOR OF DIETARY DIRECTOR OF DIETARY-C PCP: Dr. Tonio Fajardo, DO Status:REG RCR Location: History of Present Illness Date of Service: 12/18/22 Chief Complaint: right medial foot ulcer History of Wound: This 77-year-old male returns to the wound healing clinic for reoccurrence of a right medial foot ulcer. Wound care has been Moistened Cass covered with [place] SAP dressing. Patient diabetic neuropathic. Patient dealing [...] 13:20 12/18/22 13:20 Charges/Coding Procedures Integumentary 111xxx-113xx: 55807 Mihaela subq tissue 20 sq cm/< Debridement [...] Recorded Date Recorded By Document 12/18/22 13:20 [id number] 12/18/22 13:27 12/18/22 13:20 WC - Today's Visit Information Type of service Follow-up Visit (Physician/CONCRETE STONE FINISHER ) Arrival Mode Ambulatory Transfer Assistance None [...] Recorded Date Recorded By Document 12/18/22 13:20 [id number] 12/18/22 13:27 12/18/22 13:20 Wound Center Nurse [...] Serosanguineous -Granulation Amt Medium (34-66%) -Granulation Quality [place] -Slough/Fibrin No -Necrosis Amt Medium (34-66%) -Necrotic [...] Date Recorded By Document 12/18/22 13:51 DORA [id number] 12/18/22 13:53 DORA 12/18/22 13:51 Wound Center [...] Date Recorded By Document 12/18/22 14:07 PL [id number] 12/18/22 14:07 PL 12/18/22 14:07 Wound Care [...] 1423 <Electronically signed by Bonny Glynn NP DIRECTOR OF DIETARY-C> Cosigner Signature (if applicable): CC: ~ Signed [facility] Work Phone: [phone]) 425-317704-27-2023 Progress note Author Bonny Glynn [facility] December 14, 2022 2:56pm Note Date/Time December 11, 2022 3:2 7pm [facility] [address] [place] [address] Progress Note - Wound Care 12/11/22 1527 MR#: [id number] Acct: [id number] Name: PEDRO HILLMAN Rep #:[id number] : 1945 77 From: Bonny Gillis DIRECTOR OF DIETARY DIRECTOR OF DIETARY-C PCP: Dr. Tonio Fajardo, DO Status:REG RCR Location: History of Present Illness Date of Service: 12/11/22 Chief Complaint: right medial foot ulcer History of Wound: This 77-year-old male returns to the wound healing clinic for reoccurrence of a right medial foot ulcer. Wound care has been Moistened Cass covered with [place] SAP dressing. Patient diabetic neuropathic. Patient dealing [...] Method Room Air Charges/Coding Procedures Integumentary 111xxx-113xx: 21706 Mihaela subq tissue 20 sq cm/< Debridement [...] Date Recorded By Document 11/20/22 14:43 DL [id number] 11/20/22 14:49 DL Document 11/27/22 14:25 BM [id number] 11/27/22 14:27 BMF Document 12/06/22 11:35 DL [id number] 12/06/22 11:39 DL Document 12/11/22 13:12 BM [id number] 12/11/22 13:21 BMF 11/20/22 11/27/22 12/06/22 14:43 14:25 11:35 - Today's Visit Information Type of service Follow-up Visit Follow-up Visit (Physician/CONCRETE STONE FINISHER (Physician/CONCRETE STONE FINISHER ) ) Arrival Mode Ambulatory,Cane Ambulatory Transfer [...] Visit Information Type of service Follow-up Visit (Physician/CONCRETE STONE FINISHER ) Arrival Mode Ambulatory,Cane Transfer Assistance None [...] Date Recorded By Document 11/20/22 14:43 DL [id number] 11/20/22 14:49 DL Document 11/27/22 14:25 BMF [id number] 11/27/22 14:27 BMF Document 12/06/22 11:35 DL [id number] 12/06/22 11:39 DL Document 12/11/22 13:12 [facility] [id number] 12/11/22 13:21 [facility] 11/20/22 11/27/22 12/06/22 14:43 14:25 11:35 Wound [...] Amt Small (1-33%) Small (1-33%) -Granulation Quality [place] Pale -Slough/Fibrin -Necrosis Amt Small (1-33%) Small [...] Recorded Date Recorded By Document 11/20/22 15:00 [id number] 11/20/22 15:09 Edit Result 11/20/22 15:00 JF (1) [id number] 11/20/22 15:18 JF Edit Result 11/20/22 15:00 (2) [id number] 11/20/22 15:20 Document 11/27/22 14:50 [id number] 11/27/22 15:02 Document 12/06/22 11:46 [id number] 12/06/22 11:57 Document 12/11/22 13:30 [id number] 12/11/22 13:33 (1) #9 Right Inferior Hallux [...] => 08/20/27 - Product Lot Number => [id number] - Percent Used => 100 - Lot number of Saline Used => [id number] 11/20/22 11/27/22 12/06/22 15:00 14:50 11:46 Wound [...] Epifix 18mm Disc Disc Disc -Expiration Date 0108/20/27 09/20/27 -Product Lot Number [id number] -Percent Used 100 100 100 -Lot number of Saline Used [id number] -Bleeding Controlled with Pressure Pressure Pressure -Treatment [...] Date Recorded By Document 11/20/22 15:35 DL [id number] 11/20/22 15:36 DL Document 11/27/22 15:02 [id number] 11/27/22 15:03 Document 12/06/22 11:57 [id number] 12/06/22 11:58 Document 12/11/22 13:57 DL [id number] 12/11/22 13:58 DL 11/20/22 11/27/22 12/06/22 15:35 [...] if develop any questions or concerns. 12/14/22 4054 <Electronically signed by Bonny Glynn NP DIRECTOR OF DIETARY-C> Cosigner Signature (if applicable): CC: ~ Signed [facility] Work Phone: 1(157) 321-383804-19-2023 Progress note Author oBnny Glynn [facility] December 06, 2022 12:09pm Note Date/Time December 06, 2022 12: 09pm [facility] [address] [place] [address] Progress Note - Wound Care 12/06/22 1205 MR#: [id number] Acct: [id number] Name: PEDRO HILLMAN Rep #:[id number] : 1945 77 From: Bonny garcia DIRECTOR OF DIETARY DIRECTOR OF DIETARY-C PCP: Dr. Tonio Fajardo, DO Status:REG RCR Location: History of Present Illness Date of Service: 12/06/22 Chief Complaint: right medial foot ulcer History of Wound: This 77-year-old male returns to the wound healing clinic for reoccurrence of a right medial foot ulcer. Wound care has been Moistened Cass covered with [place] SAP dressing. Patient diabetic neuropathic. Patient dealing [...] 11:35 12/06/22 11:35 Charges/Coding Procedures Integumentary 150xxx-152xx: 82819 Skin sub graft face/nk/hf/g Debridement Note Debridement [...] Date Recorded By Document 11/20/22 14:43 DL [id number] 11/20/22 14:49 DL Document 11/27/22 14:25 BMF [id number] 11/27/22 14:27 BMF Document 12/06/22 11:35 DL [id number] 12/06/22 11:39 DL 11/20/22 11/27/22 12/06/22 14:43 14:25 11:35 - Today's Visit Information Type of service Follow-up Visit Follow-up Visit (Physician/CONCRETE STONE FINISHER (Physician/CONCRETE STONE FINISHER ) ) Arrival Mode Ambulatory,Cane Ambulatory Transfer [...] Date Recorded By Document 11/20/22 14:43 DL [id number] 11/20/22 14:49 DL Document 11/27/22 14:25 [facility] [id number] 11/27/22 14:27 BMF Document 12/06/22 11:35 DL [id number] 12/06/22 11:39 DL 11/20/22 11/27/22 12/06/22 14:43 [...] Amt Small (1-33%) Small (1-33%) -Granulation Quality [place] Pale -Necrosis Amt Small (1-33%) Small (1-33%) [...] Recorded Date Recorded By Document 11/20/22 15:00 [id number] 11/20/22 15:09 JF Edit Result 11/20/22 15:00 JF (1) [id number] 11/20/22 15:18 JF Edit Result 11/20/22 15:00 JF (2) [id number] 11/20/22 15:20 Document 11/27/22 14:50 [id number] 11/27/22 15:02 Document 12/06/22 11:46 [id number] 12/06/22 11:57 JF (1) #9 Right Inferior [...] => 08/20/27 - Product Lot Number => [id number] - Percent Used => 100 - Lot number of Saline Used => [id number] 11/20/22 11/27/22 12/06/22 15:00 14:50 11:46 Wound [...] Date 08/20/27 08/20/27 09/20/27 -Product Lot Number [id number] -Percent Used 100 100 100 -Lot number of Saline Used [id number] -Bleeding Controlled with Pressure Pressure Pressure -Treatment [...] Date Recorded By Document 11/20/22 15:35 DL [id number] 11/20/22 15:36 DL Document 11/27/22 15:02 [id number] 11/27/22 15:03 JF Document 12/06/22 11:57 [id number] 12/06/22 11:58 JF 11/20/22 11/27/22 12/06/22 15:35 15:02 11:57 Wound [...] 1209 <Electronically signed by Bonny Glynn NP DIRECTOR OF DIETARY-C> Cosigner Signature (if applicable): CC: ~ Signed [facility] Work Phone: 1(305) 874-573804-11-2023 Progress note Author Bonnyparris Glynn [facility] November 28, 2022 5:24pm Note Date/Time November 27, 2022 3:1 4pm [facility] [address] [place] [address] Progress Note - Wound Care 11/27/22 1513 MR#: [id number] Acct: [id number] Name: PEDRO HILLMAN Rep #:[id number] : 1945 77 From: Bonny garcia NP DIRECTOR OF DIETARY-C PCP: Dr. Tonio Fajardo, DO Status:REG RCR Location: History of Present Illness Date of Service: 11/27/22 Chief Complaint: right medial foot ulcer History of Wound: This 77-year-old male returns to the wound healing clinic for reoccurrence of a right medial foot ulcer. Wound care has been Moistened Cass covered with [place] SAP dressing. Patient diabetic neuropathic. Patient dealing [...] 14:43 11/27/22 14:25 Charges/Coding Procedures Integumentary 150xxx-152xx: 87126 Skin sub graft face/nk/hf/g Debridement Note Debridement [...] Date Recorded By Document 11/20/22 14:43 DL [id number] 11/20/22 14:49 DL Document 11/27/22 14:25 [facility] [id number] 11/27/22 14:27 BM 11/20/22 11/27/22 14:43 14:25 - Today's Visit Information Type of service Follow-up Visit Follow-up Visit (Physician/CONCRETE STONE FINISHER (Physician/CONCRETE STONE FINISHER ) ) Arrival Mode Ambulatory,Cane Ambulatory Transfer [...] Date Recorded By Document 11/20/22 14:43 DL [id number] 11/20/22 14:49 DL Document 11/27/22 14:25 [facility] [id number] 11/27/22 14:27 BMF 11/20/22 11/27/22 14:43 14:25 [...] Thickened -Granulation Amt Small (1-33%) -Granulation Quality [place] -Necrosis Amt Small (1-33%) -Necrotic Tissue Type [...] Recorded Date Recorded By Document 11/20/22 15:00 [id number] 11/20/22 15:09 JF Edit Result 11/20/22 15:00 JF (1) [id number] 11/20/22 15:18 JF Edit Result 11/20/22 15:00 JF (2) [id number] 11/20/22 15:20 JF Document 11/27/22 14:50 [id number] 11/27/22 15:02 JF (1) #9 Right Inferior [...] => 08/20/27 - Product Lot Number => [id number] - Percent Used => 100 - Lot number of Saline Used => [id number] 11/20/22 11/27/22 15:00 14:50 Wound Center Nurse [...] -Expiration Date 08/20/27 08/20/27 -Product Lot Number [id number] -Percent Used 100 100 -Lot number of Saline Used [id number] -Bleeding Controlled with Pressure Pressure -Treatment Response [...] Date Recorded By Document 11/20/22 15:35 DL [id number] 11/20/22 15:36 DL Document 11/27/22 15:02 JF [id number] 11/27/22 15:03 JF 11/20/22 11/27/22 15:35 15:02 [...] 1724 <Electronically signed by Bonny Glynn NP DIRECTOR OF DIETARY-C> Cosigner Signature (if applicable): CC: ~ Signed [facility] Work Phone: 1(696) 802-563604-10-2023 Progress note Author Bonny Glynn [facility] November 26, 2022 10:29pm Note Date/Time November 20, 2022 4:18 pm [facility] [address] [place] [address] Progress Note - Wound Care 11/20/22 1618 MR#: [id number] Acct: [id number] Name: PEDRO HILLMAN Rep #:[id number] : 1945 77 From: Bonny garcia NP DIRECTOR OF DIETARY-C PCP: Dr. Tonio Fajardo, DO Status:REG RCR Location: History of Present Illness Date of Service: 11/20/22 Chief Complaint: right medial foot ulcer History of Wound: This 77-year-old male returns to the wound healing clinic for reoccurrence of a right medial foot ulcer. Wound care has been Moistened Cass covered with [place] SAP dressing. Patient diabetic neuropathic. Patient dealing [...] 14:43 11/20/22 14:43 Charges/Coding Procedures Integumentary 150xxx-152xx: 25754 Skin sub graft face/nk/hf/g Debridement Note Debridement [...] Date Recorded By Document 11/20/22 14:43 DL [id number] 11/20/22 14:49 DL 11/20/22 14:43 WC - Today's Visit Information Type of service Follow-up Visit (Physician/CONCRETE STONE FINISHER ) Arrival Mode Ambulatory,Cane Transfer Assistance None [...] 0-10 Numeric Is Patient Pain Free? Yes [facility] Nurse 1 - General Ulcer Measurement Start: 11/20/22 14:43 Freq: Status: Active Protocol: Activity Type Activity Date Activity User E-sign Co-sign Detail Recorded Client Recorded Date Recorded By Document 11/20/22 14:43 DL [id number] 11/20/22 14:49 DL 11/20/22 14:43 Wound Center Nurse 1 #9 Right Inferior Hallux -Current Size (cm) - Length 0.2 -Current Size (cm) - Width 0.3 -Current Size (cm) - Depth 0.2 -Total Square Cm 0.06 -Photo Taken No -Exudate Amt Small -Exudate Type Serosanguineous -Wound Margin Thickened -Granulation Amt Small (1-33%) -Granulation Quality [place] -Necrosis Amt Small (1-33%) -Necrotic Tissue Type [...] Date Recorded By Document 11/20/22 15:00 JF [id number] 11/20/22 15:09 JF Edit Result 11/20/22 15:00 JF (1) [id number] 11/20/22 15:18 JF Edit Result 11/20/22 15:00 JF (2) [id number] 11/20/22 15:20 JF (1) #9 Right Inferior [...] => 08/20/27 - Product Lot Number => [id number] - Percent Used => 100 - Lot number of Saline Used => [id number] 11/20/22 15:00 Wound Center Nurse 2 -Time [...] Disc -Expiration Date 08/20/27 -Product Lot Number [id number] -Percent Used 100 -Lot number of Saline Used [id number] -Bleeding Controlled with Pressure -Treatment Response Procedure [...] Date Recorded By Document 11/20/22 15:35 DL [id number] 11/20/22 15:36 DL 11/20/22 15:35 Wound Care [...] 11/26/222228 <Electronically signed by Bonny Glynn NP DIRECTOR OF DIETARY-C> Cosigner Signature (if applicable): CC: ~ Signed [facility] Work Phone: 1(480) 420-819502-21-2023 Progress note Author Bonny Glynn [facility] October 10, 2022 3:29pm Note Date/Time October 09, 2022 4:10pm [facility] [address] [place] [address] Progress Note - Wound Care 10/09/22 1609 MR#: [id number] Acct: [id number] Name: PEDRO HILLMAN Rep #:[id number] : 1945 77 From: Bonny garcia NP DIRECTOR OF DIETARY-C PCP: Dr. Tonio Fajardo, DO Status:REG RCR Location: History of Present Illness Date of Service: 10/09/22 Chief Complaint: right foot ulcer History of Wound: This 77-year-old male returns to the wound healing clinic for reoccurrence of a right medial foot ulcer. Wound care has been Moistened Cass covered with [place] SAP dressing. Patient diabetic neuropathic. Patient dealing [...] Method Room Air Charges/Coding Procedures Integumentary 150xxx-152xx: 59895 Skin sub graft face/nk/hf/g Debridement Note Debridement [...] Date Recorded By Document 09/25/22 14:25 BMF [id number] 09/25/22 14:32 BMF Document 10/02/22 13:28 ML [id number] 10/02/22 13:32 ML Document 10/09/22 12:59 DL [id number] 10/09/22 13:04 DL 09/25/22 10/02/22 10/09/22 14:25 13:28 12:59 - Today's Visit Information Type of service Follow-up Visit Follow-up Visit Follow-up Visit (Physician/CONCRETE STONE FINISHER (Physician/CONCRETE STONE FINISHER (Physician/CONCRETE STONE FINISHER ) ) ) Arrival Mode Ambulatory,Cane Cane [...] Date Recorded By Document 09/25/22 14:25 BMF [id number] 09/25/22 14:32 BMF Document 10/02/22 13:28 ML [id number] 10/02/22 13:32 ML Document 10/09/22 12:59 DL [id number] 10/09/22 13:04 DL 09/25/22 10/02/22 10/09/22 14:25 [...] (0 Large (67-100%) %) -Granulation Quality [place] -Slough/Fibrin Yes Yes -Necrosis Amt Small (1-33%) [...] Recorded Date Recorded By Document 09/25/22 14:42 [id number] 09/25/22 14:51 Document 10/02/22 14:14 [id number] 10/02/22 14:17 Document 10/09/22 13:17 [id number] 10/09/22 13:26 09/25/22 10/02/22 10/09/22 14:42 14:14 [...] Date 06/20/27 05/20/27 06/20/27 -Product Lot Number [id number] 026 -Percent Used 100 100 100 -Lot number of Saline Used [id number] -Bleeding Controlled with Pressure Pressure Pressure -Treatment [...] Recorded Date Recorded By Document 09/25/22 14:52 [id number] 09/25/22 14:53 Document 10/02/22 14:18 [id number] 10/02/22 14:19 09/25/22 10/02/22 14:52 14:18 Wound [...] positive for Staphylococcus epidermidis and GNR lactose manager client service. I spoke with his PCP, Dr Fajardo, who was made aware of the results and he said he would treat him from these results. Follow up one week. 10/10/22 1529 <Electronically signed by Bonny Glynn NP DIRECTOR OF DIETARY-C> Cosigner Signature (if applicable): CC: ~ Signed [facility] Work Phone: 1(538) 161-277102-14-2023 Progress note Author Bonnyparris Glynn [facility] October 03, 2022 4:51pm Note Date/Time September 26, 2022 1 :17pm [facility] [address] [place] [address] Progress Note - Wound Care 09/25/22 1501 MR#: [id number] Acct: [id number] Name: PEDRO HILLMAN Rep #:[id number] : 1945 77 From: Bonny garcia NP DIRECTOR OF DIETARY-C PCP: Dr. Tonio Fajardo, DO Status:REG RCR Location: ADDENDUM by FARHEEN Glynn on 10/03/22 at 1651 Addendum [place] [address] Procedures Integumentary 150xxx-152xx: 02201 Skin sub graft face/nk/hf/g 10/03/22 1651<Electronically signed by Bonny ZHONG> Cosigner Signature (if applicable): cc: ~* Signed History of Present Illness Date of Service: 09/25/22 Chief Complaint: right foot ulcer History of Wound: This 77-year-old male returns to the wound healing clinic for reoccurrence of a right medial foot ulcer. Wound care has been Moistened Cass covered with [place] SAP dressing. Patient diabetic neuropathic. Patient dealing [...] Method Room Air Charges/Coding Procedures Integumentary 150xxx-152xx: 57896 Skin sub graft trnk/arm/leg Debridement Note Debridement [...] Recorded Date Recorded By Document 09/25/22 14:25 [facility] [id number] 09/25/22 14:32 [facility] 09/25/22 14:25 - Today's Visit Information Type of service Follow-up Visit (Physician/CONCRETE STONE FINISHER ) Arrival Mode Ambulatory,Cane Transfer Assistance None [...] Recorded Date Recorded By Document 09/25/22 14:25 [facility] [id number] 09/25/22 14:32 [facility] 09/25/22 14:25 Wound Center Nurse 1 [...] Date Recorded By Document 09/25/22 14:42 [facility] [id number] 09/25/22 14:51 [facility] 09/25/22 14:42 Wound Center [...] Disc -Expiration Date 06/20/27 -Product Lot Number [id number] -Percent Used 100 -Lot number of Saline Used [id number] -Bleeding Controlled with Pressure -Treatment Response Procedure [...] Recorded Date Recorded By Document 09/25/22 14:52 [id number] 09/25/22 14:53 09/25/22 14:52 Wound Care Center [...] 1317 <Electronically signed by Bonny Glynn NP DIRECTOR OF DIETARY-C> Cosigner Signature (if applicable): CC: ~ Signed [facility] Work Phone: 1(673) 190-335102-14-2023 Progress note Author Bonny Glynn [facility] October 03, 2022 4:49pm Note Date/Time October 02, 2022 2:57pm [facility] [address] [place] [address] Progress Note - Wound Care 10/02/22 1457 MR#: [id number] Acct: [id number] Name: PEDRO HILLMAN Rep #:[id number] : 1945 77 From: Bonny garcia NP DIRECTOR OF DIETARY-C PCP: Dr. Tonio Fajardo, DO Status:REG RCR Location: History of Present Illness Date of Service: 10/02/22 Chief Complaint: right foot ulcer History of Wound: This 77-year-old male returns to the wound healing clinic for reoccurrence of a right medial foot ulcer. Wound care has been Moistened Cass covered with [place] SAP dressing. Patient diabetic neuropathic. Patient dealing [...] Charges/Coding Visit Charges Office Visits / Consults: 44763 OV L3 Est (25 modifier) Procedures Integumentary 150xxx-152xx: 46916 Skin sub graft face/nk/hf/g Physical Exam Const [...] Recorded Date Recorded By Document 09/25/22 14:25 [facility] [id number] 09/25/22 14:32 BM Document 10/02/22 13:28 ML [id number] 10/02/22 13:32 ML 09/25/22 10/02/22 14:25 13:28 WC - Today's Visit Information Type of service Follow-up Visit Follow-up Visit (Physician/CONCRETE STONE FINISHER (Physician/CONCRETE STONE FINISHER ) ) Arrival Mode Ambulatory,Cane Cane Transfer [...] Recorded Date Recorded By Document 09/25/22 14:25 [facility] [id number] 09/25/22 14:32 BM Document 10/02/22 13:28 ML [id number] 10/02/22 13:32 ML 09/25/22 10/02/22 14:25 13:28 [...] Recorded Date Recorded By Document 09/25/22 14:42 [id number] 09/25/22 14:51 Document 10/02/22 14:14 [id number] 10/02/22 14:17 09/25/22 10/02/22 14:42 14:14 Wound [...] -Expiration Date 06/20/27 05/20/27 -Product Lot Number [id number] -Percent Used 100 100 -Lot number of Saline Used [id number] -Bleeding Controlled with Pressure Pressure -Treatment Response [...] Date Recorded By Document 09/25/22 14:52 [facility] [id number] 09/25/22 14:53 Document 10/02/22 14:18 [id number] 10/02/22 14:19 09/25/22 10/02/22 14:52 14:18 Wound [...] they should go to the ED. 10/03/22 5829 <Electronically signed by Bonny Glynn NP DIRECTOR OF DIETARY-C> Cosigner Signature (if applicable): CC: ~ Signed [facility] Work Phone: 1(867) 783-187801-10-2023 Progress note Author Bonny Glynn [facility] August 29, 2022 3:36pm Note Date/Time August 29, 2022 2 :32pm [facility] [address] [place] [address] Progress Note - Wound Care 08/29/22 1429 MR#: [id number] Acct: [id number] Name: PEDRO HILLMAN Rep #:[id number] : 1945 77 From: Bonny garcia NP DIRECTOR OF DIETARY-C PCP: Dr. Tonio Fajardo, DO Status:REG RCR Location: History of Present Illness Date of Service: 08/29/22 Chief Complaint: right foot ulcer History of Wound: This 77-year-old male returns to the wound healing clinic for reoccurrence of a right medial foot ulcer. Wound care has been Moistened Cass covered with [place] SAP dressing. Patient diabetic neuropathic. Patient dealing [...] Method Room Air Charges/Coding Procedures Integumentary 111xxx-113xx: 43698 Mihaela subq tissue 20 sq cm/< Debridement [...] Recorded Date Recorded By Document 08/29/22 13:17 [facility] [id number] 08/29/22 13:22 [facility] 08/29/22 13:17 - Today's Visit Information Type of service Follow-up Visit (Physician/CONCRETE STONE FINISHER ) Arrival Mode Ambulatory,Cane Transfer Assistance None [...] Recorded Date Recorded By Document 08/29/22 13:17 [facility] [id number] 08/29/22 13:22 [facility] 08/29/22 13:17 Wound Center Nurse 1 [...] Date Recorded By Document 08/29/22 13:35 [facility] [id number] 08/29/22 13:40 JF 08/29/22 13:35 Wound Center Nurse 2 -Time [...] Date Recorded By Document 08/29/22 13:47 DL [id number] 08/29/22 13:47 DL 08/29/22 13:47 Wound Care [...] help expedite wound healing. [facility] to start Epifix. Wound care - Silvercel as the primary dressing covered with [place] SAP (secondarydressing) daily after washing foot with [...] if develop any questions or concerns. 08/29/22 2463 <Electronically signed by Bonny Glynn NP DIRECTOR OF DIETARY-C> Cosigner Signature (if applicable): CC: ~ Signed [facility] Work Phone: 1(452) 850-773912-16-2022 Miscellaneous Notes* Telephone Encounter - Liseth Ortiz Ma - 08/04/2022 9:59 AM EST Pt PCP outside [facility]. Call to pt and notified him of Providers message. Pt states that he did talk tohim. BRAULIO. Liseth Ortiz Ma * Telephone Encounter - Jessie Rodriguez APRN.CONCRETE STONE FINISHER - 07/28/2022 1:43 PM EST In reviewing patient's chart I do not see that he has had any follow up done in regards to his actionable chest xray finding. I left a message on patient's voicemail for him to call back and advise. Jessie Rodriguez APRN.SHANI documented in this encounter[facility] Miscellaneous Notes* Telephone Encounter - sAhley Kelley - 04/08/2022 2:56 PM EDT Notified pt of results, daughter will call to get information on restrictions. Ashley Kelley * Telephone Encounter - Ashley Kelley - 04/08/2022 9:18 AM EDT left message on machine to give call back, different number from pharmacy. [phone]. Ashley Kelley * Telephone Encounter - Ashley Kelley - 04/07/2022 5:48 PM EDT Unable to reach patient. Mailbox full/Mailbox not set up/ Number incorrect. Please try again later. Ashley Kelley * Telephone Encounter - Sigrid Monroe LPN - 04/06/2022 6:48 PM EDT Still unable to reach patient and account contact associate is spouse with same number.Sigrid Monroe LPN [...] ER if severe. documented in this encounterPromedica [facility]08-17-2022 NoteHNO ID: [id number] Author: Jessie Rodriguez APRN.CONCRETE STONE FINISHER Service: ? Author Type: Nurse Practitioner Type: [...] - COVID WITH FLUA+B, ROUTINE Jessie Rodriguez APRN.[facility]08-17-2022 NoteHNO ID: [id number] Author: RT Jose Eduardo(R) Service: Nuclear Medicine [...] RT Jose Eduardo(R) April 05, 2022 1:55 [facility]08-17-2022 Influenza virus A and B RNA and SARS-CoV-2 (COVID-19) N gene panel BRYAN+probe (Resp)COVID 19 RESULT: SARS-CoV-2 (Agent of COVID-19) Detected by RT-PCR or equivalent method. anatoly MHHH-IgP-8_Hktdo [employer] (YASMEEN)_EUA This test was developed and its performance characteristics determined by [facility] [place]. This test has been authorized by FDA under an Emergency Use Authorization (EUA). This test has been validated in accordance with the FDA's Guidance Document Policy for DiagnosticsTesting in Laboratories Certified to Perform High Complexity Testing under CLIA prior to Emergency use Authorization for Coronavirus Disease 2019 during the Public Health Emergency issued on October 18, 2019. Test performed by [facility], [facility] [place], [facility] [place] [address]. INFLUENZA A PCR: Negative for Influenza A by RT-PCR INFLUENZA B PCR: Negative for Influenza B by RT-PCRProtestant Deaconess HospitalComment on above: Performed By: #### [id number] #### [facility] CLIA [id number] [address] [place] [address] [place] [address] [place] [id number] Miscellaneous Notes* Telephone Encounter - Jessie Rodriguez APRN.CNP - 04/05/2022 2:58 PM EDT Radiology report faxed to patient's PCP Dr. Tonio Fajardo at [phone]. Confirmation of fax received. Patient was advised to call Dr. Fajardo today for a follow up appointment. Jessie Rodriguez APRN.CNP documented in this encounterPromedica [facility]08-17-2022 Instructions* Patient Instructions* Jessie Rodriguez APRN.CNP [...] ROUTINE Jessie Rodriguez APRN.SHANI documented in this encounterPromedica [facility]08-17-2022 History of Present illness Narrative* Jessie [...] - COVID WITH FLUA+B, ROUTINE Jessie Rodriguez APRN.CONCRETE STONE FINISHER documented in this encounterPromedica [facility]08-17-2022 History of Present illness Narrative* Yuliana [...] 05, 2022 1:55 PM documented in this encounterPromedica Toledo HospitalConsult note Author Mala Sterling [facility] Note Date/Time March 09, 2025 2:58 pm [facility] Medical Records Department [address] [place] [address] Counseling Note - Pharmacy 03/09/25 1457 MR#: [id number] Acct: [id number] Name: PEDRO HILLMAN Rep #:[id number] : 1945 80 From: Mala Sterling PCP: Dr. 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 Venous insufficiency chronic Ulcer of right foot with fat layer exposed resolved [facility] Work Phone: Evaluation note* Diagnosis Onset Date Resolution Status Malnutrition chronic 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 Venous insufficiency chronic Ulcer of right foot with fat layer exposed resolved Malnutrition chronic 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 Venous insufficiency chronic Ulcer of right foot with fat layer exposed resolved [facility] Work Phone: Evaluation note* Diagnosis Onset Date [...] right foot with fat layer exposed resolved [facility] Work Phone: Evaluation note* Diagnosis Onset Date [...] 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 [facility] Work Phone: Evaluation note* Diagnosis Onset Date [...] right foot with fat layer exposed resolved [facility] Work Phone: Evaluation note* Diagnosis Burning with urination- Primary Dysuria Acute cough Suspected COVID-19 virus infection documented in this encounter [facility]* Diagnosis Onset Date Resolution Status [...] acute Nicotine dependence, cigarettes, in remission acute [facility] Work Phone: Evaluation note* Diagnosis Onset Date [...] right foot with fat layer exposed resolved [facility] Work Phone: Evaluation note* Diagnosis Onset Date [...] right foot with fat layer exposed resolved [facility] Work Phone: Evaluation note* Diagnosis Onset Date [...] of upper lobe of right lung acute [facility] Work Phone: Evaluation note* Diagnosis Onset Date [...] of upper lobe of right lung acute [facility] Work Phone: Evaluation note* Diagnosis Onset Date [...] of upper lobe of right lung acute [facility] Work Phone: Evaluation note* Diagnosis Onset Date [...] chronic Presence of aortocoronary bypass graft [facility] Work Phone: Evaluation note* Diagnosis Onset [...] right foot with fat layer exposed chronic [facility] Work Phone: Evaluation note* Diagnosis Onset Date [...] right foot with fat layer exposed chronic [facility] Work Phone: Evaluation note* Diagnosis Onset Date [...] layer exposed chronic Shortness of breath chronic [facility] Work Phone: Evaluation note* Diagnosis Onset Date [...] of upper lobe of right lung chronic [facility] Work Phone: Evaluation note* Diagnosis Onset Date [...] of upper lobe of right lung chronic [facility] Work Phone: Evaluation note* Diagnosis Onset Date [...] right foot with fat layer exposed chronic [facility] Work Phone: Evaluation note* Diagnosis Onset Date [...] right foot with fat layer exposed chronic [facility] Work Phone: Evaluation note* Diagnosis Onset Date [...] right foot with fat layer exposed chronic [facility] Work Phone: Evaluation note* Diagnosis Onset Date [...] right foot with fat layer exposed chronic [facility] Work Phone: Evaluation note* Diagnosis Onset Date [...] right foot with fat layer exposed chronic [facility] Work Phone: Evaluation note* Diagnosis Onset Date [...] right foot with fat layer exposed resolved [facility] Work Phone: Evaluation note* Diagnosis Onset Date [...] right foot with fat layer exposed chronic [facility] Work Phone: Evaluation note* Diagnosis Onset Date [...] of upper lobe of right lung chronic [facility] Work Phone: Evaluation note* Diagnosis Onset Date Resolution Status Irregular heart rate acute COPD (chronic obstructive pulmonary disease) chronic 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 Plenty of fluids and rest today do not get dehydrated. Return if you are feeling a lot worse or too weak to get around her house. Follow-up with your doctor in the next several days to ensure you are improving. [facility] Work Phone: Hospital Discharge instructions Additional Instructions 1. Keep your postoperative dressing clean dry and intact 2. Continue strict glycemic control. 3. Partial weightbearing to heel with surgical shoe, use walker or crutches 4. Reach out to Dr. Suárez with any questions or concerns and follow-up in 1 week in clinic. [facility] Reason for referral (narrative)No reason for referral information availableWBu[facility] Work Phone: Chief Complaint and Reason [...] 04 7:57pm Atherosclerosis of coronary artery of [place] heart without angina pectoris March 04, 2025 [...] 2025 7:57pm Atherosclerosis of coronary artery of [place] heart without angina pectoris March 04, 2025 [...] 15, 2025 4:56 pm 6 M FU/S/P [facility] 03/09March 17, 2025 12: 51pm Reason [...] 2025 7:57pm Atherosclerosis of coronary artery of [place] heart without angina pectoris March 04, 2025 [...] 15, 2025 4:56 pm 6 M FU/S/P [facility] 03/09March 17, 2025 12: 51pm atrial [...] 15, 2025 4:56 pm 6 M FU/S/P [facility] 03/09March 17, 2025 12: 51pm atrial fibrillation [...] 2025 7:57pm Atherosclerosis of coronary artery of [place] heart without angina pectoris March 04, 2025 [...] 15, 2025 4:56 pm 6 M FU/S/P [facility] 03/09March 17, 2025 12: 51pm atrial [...] 2025 7:57pm Atherosclerosis of coronary artery of [place] heart without angina pectoris March 04, 2025 [...] 15, 2025 4:56 pm 6 M FU/S/P [facility] 03/09March 17, 2025 12: 51pm atrial [...] 15, 2025 4:56 pm 6 M FU/S/P [facility] 03/09March 17, 2025 12: 51pm atrial [...] 2025 7:57pm Atherosclerosis of coronary artery of [place] without angina pectoris March 04, 2025 7:57pm CHF exacerbation March 04, 2025 7:57 pm Hypertension March 04, 2025 7:57 pm Peripheral arterial disease March 04 025 7:57pm Other persistent atrial fibrillation Feb [...] 2024 6:33pm DARIUSZ (acute kidney injury) April 10, 2 025 6:33pm Atrial fibrillation April 10, 2025 [...] 15, 2025 4:56 pm 6 M FU/S/P [facility] 03/09March 17, 2025 12: 51pm atrial [...] today. April 12, 2025 6:02pm Advance Directives No Advanced Directives Records Found Advance Directive Response Recorded Date/ Time Advance Directives No February 17 4 11:03am Living Will No February 17, 2014 1 1:03am Power of [place]ull[place] Chief No February 17, 2014 11:03am Advance Directive Response Recorded Date/ Time Name of Medical Power of Scullion Chief SON April 14, 2022 8:29am Advance Directives No February 17 4 11:03am Living Will No April 14 2 8:29am Power of [place] Chief Yes April 14 8:29am Advance Directive Response Recorded Date/ Time Name of Medical Power of [place] Chief SON April 14, 2022 7:29am Advance Directives No February 17 4 10:03am Living Will No April 14 2 7:29am Power of [place] Chief Yes April 14 7:29am Advance Directive Response Recorded Date/ Time Advance Directives No February 17 4 10:03am Living Will No April 14 7:29am Power of [place] Chief Yes April 14 7:29am Advance Directive Response Recorded Date/ Time Advance Directives No February 17 4 11:03am Living Will No April 14 2 8:29am Power of [place] Chief Yes April 14 8:29am Advance Directive Response Recorded Date/ Time Name of Medical Power of [place] Chief Gideon Calderon December 30, 2022 10:39pm Advance Directives No February 17 4 11:03am Living Will Yes December 30, 2022 1 0:39pm Power of [place] Chief Yes December 30, 2022 10:39pm Advance Directive Response Recorded Date/ Time Advance Directives No February 17 4 11:03am Living Will Yes December 30, 2022 1 0:39pm Power of [place] Chief Yes December 30, 2022 10:39pm Advance Directive Response Recorded Date/ Time Advance Directives No February 17 4 10:03am Living Will Yes December 30, 2022 9 :39pm Power of [place] Chief Yes December 30, 2022 9:39pm Advance Directive Response Recorded Date/ Time Living Will Yes December 30, 2022 1 0:39pm Power of [place] Chief Yes December 30, 2022 10:39pm Advance Directives No February 17 4 11:03am Advance Directive Response Recorded Date/ Time Living Will Yes December 30, 2022 1 0:39pm Do you have a Healthcare Power of Scullion Chief? Yes December 30, 2022 10:39pm Living Will No April 14 8:29am Do you have a Healthcare Power of Scullion Chief? Yes April 14, 2022 8:29am Advance Directives No February 17 11:03am Advance Directive Response Recorded Date/ Time Living Will No April 14 8:29am Do you have a Healthcare Pow er of Scullion Chief? Yes April 14, 2022 8:29am Do you have a Healthcare Pow er of [place] Chief? Yes March 04, 2025 2:58pm Name of Medical Power of Scull[place] Chief Ed Daja olmstead March 04, 2025 2:58pm Advance Directives No February 17 11:03am Advance Directive Response Recorded Date/ Time Do you have a Healthcare Power of Scullion Chief? Yes March 04, 2025 9:11pm Name of Medical Power of Scull[place] Chief Ed Daja olmstead March 04, 2025 2:58pm Advance Directives No February 17 11:03am Advance Directive Response Recorded Date/ Time Do you have a Healthcare Power of Scullion Chief? Yes March 04, 2025 9:11pm Name of Medical Power of Scull[place] Chief Ed Daja olmstead March 04, 2025 2:58pm Do you have a Healthcare Power of Scullion Chief? Yes March 15, 2025 5:04pm Name of Medical Power of Scullion Chief Ed Daja March 15, 2025 5:04pm Advance Directives No February 17 11:03am Advance Directive Response Recorded Date/ Time Do you have a Healthcare Pow er of Scullion Chief? Yes March 04, 2025 9:11pm Name of Medical Power of Scullion Chief Ed Daja olmstead March 04, 2025 2:58pm Do you have a Healthcare Pow er of Scullion Chief? Yes April 05, 2025 4:49pm Do you have a Healthcare Pow er of Scullion Chief? Yes March 15, 2025 5:04pm Name of Medical Power of Scullion Chief Ed Daja March 15, 2025 5:04pm Advance Directives No February 17 11:03am Advance Directive Response Recorded Date/ Time Do you have a Healthcare Pow er of Scullion Chief? Yes March 04, 2025 9:11pm Name of Medical Power of Scullion Chief Ed Daja olmstead March 04, 2025 2:58pm Do you have a Healthcare Pow er of Scullion Chief? Yes April 05, 2025 8:49pm Do you have a Healthcare Pow er of Scullion Chief? Yes March 15, 2025 5:04pm Name of Medical Power of Scullion Chief Ed Daja March 15, 2025 5:04pm Advance Directives No February 17 11:03am Advance Directive Response Recorded Date/ Time Do you have a Healthcare Pow er of Scullion Chief? Yes March 04, 2025 9:11pm Name of Medical Power of Scullion Chief Ed Daja step son March 04, 2025 2:58pm Do you have a Healthcare Pow er of Scullion Chief? Yes April 05, 2025 8:49pm Do you have a Healthcare Pow er of Scullion Chief? Yes April 12, 2025 6:18pm Do you have a Healthcare Pow er of Scullion Chief? Yes March 15, 2025 5:04pm Name of Medical Power of Scullion Chief Ed Daja March 15, 2025 5:04pm Do you have a Healthcare Pow er of Scullion Chief? Yes April 10, 2025 10:00pm Advance Directives [...] prosecute any alcohol or drug abuse patient.[facility] the event this information is protected by the Federal Confidentiality of Alcohol and Drug Abuse Patient Records regulations: The Federal rules restrict any use of the information to criminally investigate or prosecute any alcohol or drug abuse patient.[facility] the event this information is protected by the Federal Confidentiality of Alcohol and Drug Abuse Patient Records regulations: The Federal rules restrict any use of the information to criminally investigate or prosecute any alcohol or drug abuse patient.[facility] the event this information is protected by the Federal Confidentiality of Alcohol and Drug Abuse Patient Records regulations: The Federal rules restrict any use of the information to criminally investigate or prosecute any alcohol or drug abuse patient.[facility] the event this information is protected by the Federal Confidentiality of Alcohol and Drug Abuse Patient Records regulations: The Federal rules restrict any use of the information to criminally investigate or prosecute any alcohol or drug abuse patient.[facility] Reason for Visit (unrecogniz ed section and content) Reason Comments Results Reason Comments Urinary Problem burning with urinati on x 1 week nasal congestion and drainage x 1 week Reason Comments Results COVID+ Reason Comments Patient Update Care Teams (unrecognized sec tion and content) Juvenile Officer Relationship Specialty Start Date End Date Tonio Fajardo DO [address] [place] [address] PCP - General Family Practice 04/05/22 Juvenile Officer Relationship Specialty Start Date End Date Tonio Fajardo DO [address] [place] [place], [place] [id number] PCP - General Family Practice 04/05/22 Juvenile Officer Relationship Specialty Start Date End Date Scotty, Tonio A, DO [address] [place] [address] PCP - General Family Practice 04/05/22 Juvenile Officer Relationship Specialty Start Date End Date Scotty Tonio Vasquez, [address] [address] PCP - General Family Medicine 04/05/22 Team Status: Active Member Role Status Dates Dr. Tonio Fajardo , DO Family Provider Active Dr. Tonio Fajardo , DO Primary Care Provider Active Team Status: Inactive Member Role Status Dates Dr. Tonio Fajardo DO Primary Care Provider, Referrin g Provider Active Iker Rodriguez DIRECTOR OF DIETARY, DIRECTOR OF DIETARY-C Attending Provider Active Team Status: Inactive Member [...] DO Primary Care Provider Active Bonny Glynn DIRECTOR OF DIETARY, DIRECTOR OF DIETARY-C Attending Pro vider, Referring Provider, Other Provider [...] Active Member Role Status Dates Dr. Tonio Scotty , DO Primary Care Provider Active Dr. Russ Zamora MD Attending Provider, Referring Pro vider Active Dr. Srini Choi , DO Other Provider Active Team Status: Inactive Member Role Status Dates Dr. Tonio Fajardo , DO Primary Care Provider Active Bonnyparris Pintoell DIRECTOR OF DIETARY, DIRECTOR OF DIETARY-C Attending Provider Active Team Status: Active Member [...] DO Primary Care Provider Active Bonnyap PeresRenard DIRECTOR OF DIETARY, DIRECTOR OF DIETARY-C Attending Provider Active Team Status: Inactive Member Role Status Dates Dr. Tonio Fajardo , DO Primary Care Provider Active Bonnyap PeresRenard DIRECTOR OF DIETARY, DIRECTOR OF DIETARY-C Attending Provider, Referri ng Provider Active Team Status: Inactive Member Role Status Dates Dr. Tonio Fajardo , DO Primary Care Provider, Referrin g Provider Active Dr. Tyrell Uriarte , DO Attending Provider Active Team Status: Active Member Role Status Dates Dr. Tonio Fajardo DO Primary Care Provider Active Bonny Glynn DIRECTOR OF DIETARY, DIRECTOR OF DIETARY-C Attending Provider, Other P rovider Active Team [...] Care Provider, Referrin g Provider Active Bonnyap PeresRenard DIRECTOR OF DIETARY, DIRECTOR OF DIETARY-C Attending Provider Active Team Status: Inactive Member Role Status Dates Dr. Tonio Fajardo , DO Primary Care Provider, Referrin g Provider Active Dr. Joaquim Suárez DPM Attending Provider Active Team Status: Active Member Role Status Dates Dr. Tonio Fajardo , DO Primary Care Provider Active Dr. Francisco [...] Provider, Referrin g Provider Active Lorie Mart DIRECTOR OF DIETARY, DIRECTOR OF DIETARY-C Attending Provider Active Team Status: Inactive Member Role Status Dates Dr. Tonio Fajardo DO Primary Care Provider, Referrin g Provider Active Leslie Arriaga PA, PA Attending Provider Active Team Status: Inactive Member Role Status Dates Dr. Tonio Fajardo DO Primary Care Provider Active Lorie Mart DIRECTOR OF DIETARY, DIRECTOR OF DIETARY-C Attending Provider, Referrin g Provider Active Team Status: Active Member Role Status Dates Dr. Tonio Fajardo DO Primary Care Provider Active Dr. Issa Looney MD Attending Provider Active Team Status: Inactive Member Role Status Dates Dr. Tonio Fjaardo DO Primary Care Provider Active Leslie Arriaga PA, PA Attending Provider, Referr ing Provider Active Team Status: Inactive Member Role Status Dates Dr. Tonio Fajardo DO Primary Care Provider Active Dr. Joaquim Suárez DPM Attending Provider Active Juvenile Officer Relationship Specialty Start Date End Date Tonio Fajardo DO [address] [facility] [place] [address] PCP - General Family Medicine 04/05/22 Team [...] 2024 End: October 16, 2024 Lorie Mart DIRECTOR OF DIETARY, DIRECTOR OF DIETARY-C Attending Provider Active Start: October 16, 2024 End: October 16, 2024 Lorie Mart DIRECTOR OF DIETARY, DIRECTOR OF DIETARY-C Referring Provider Active Start: October 16, 2024 End: October 16, 2024 Team Status: Active Member Role Status Dates Dr. Tonio Fajardo DO Primary Care Provider Active Start: October 17, 2024 Lorie Mart DIRECTOR OF DIETARY, DIRECTOR OF DIETARY-C Referring Provider Active Start: October 17, 2024 Lorie Mart DIRECTOR OF DIETARY, DIRECTOR OF DIETARY-C Other Provider Active Start: October 17, 2024 [...] 2024 End: October 23, 2024 Lorie Mart DIRECTOR OF DIETARY, DIRECTOR OF DIETARY-C Attending Provider Active Start: October 23, 2024 [...] Status: Inactive Member Role Status Dates Dr. Tnoio Fajardo [...] 2025 End: March 09, 2025 Dr. Nicola Lnidsey DO Admit Provider Active Start: March 04, [...] 2025 End: March 09, 2025 Iker Rodriguez DIRECTOR OF DIETARY, DIRECTOR OF DIETARY-C Other Provider Active Start : March 04, [...] Active Start: March 05, 2025 Iker Rodriguez DIRECTOR OF DIETARY, DIRECTOR OF DIETARY-C Other Provider Active Start : March 05, [...] Active Sta rt: March 06, 2025 Dr. oJse Lai MD Other Provider Active Star t: [...] Active Start: March 06, 2025 Iker Rodriguez DIRECTOR OF DIETARY, DIRECTOR OF DIETARY-C Other Provider Active Start : March 06, [...] St art: March 06, 2025 Dr. Orly Mtichell MD Other Provider Active Start: March 06, 2025 Dr. Reinaldo Mclain MD Other Provider Active S tart: March 06, 2025 Dr. Santos Hsu MD Other Provider Active Start: March 06, 2025 Iker Rodriguez DIRECTOR OF DIETARY, DIRECTOR OF DIETARY-C Other Provider Active Start : March 06, [...] Active Start: March 07, 2025 Iker Rodriguez DIRECTOR OF DIETARY, DIRECTOR OF DIETARY-C Other Provider Active Start : March 07, 2025 Leslie DAMIAN, PA Other Provider Active Start: March 07, [...] Active Start: March 08, 2025 Iker Rodriguez DIRECTOR OF DIETARY, DIRECTOR OF DIETARY-C Other Provider Active Start : March 08, 2025 Leslie DAMIAN, PA Other Provider Active Start: March 08, 2025 RICKIE Cummins Other Provider Active Start: March 08, 2025 Team Status: Active Member Role/Relationship Status Dates Dr. Tonio Fajardo DO Primary Care Provider Active Start: March 08, 2025 Dr. Chris Ochoa MD Emergency Provider Active S tart: March 08, 2025 Dr. Nicola Lindsey , DO Admit Provider Active Start: March [...] Active Start: March 08, 2025 Iker Rodriguez DIRECTOR OF DIETARY, DIRECTOR OF DIETARY-C Other Provider Active Start : March 08, 2025 Leslie Arriaga PA, PA Other Provider Active Start: March 08, 2025 RICKIE Cummins Other Provider Active Start: March 08, 2025 Team Status: Active Member Role/Relationship Status Dates Dr. Tonio Fajardo , Primary Care Provider Active Start: March 09, [...] Active Start: March 09, 2025 Iker Rodriguez DIRECTOR OF DIETARY, DIRECTOR OF DIETARY-C Other Provider Active Start : March 09, [...] Active Start: March 09, 2025 Iker Rodriguez DIRECTOR OF DIETARY, DIRECTOR OF DIETARY-C Other Provider Active Start : March 09, [...] Active Start: April 08, 2025 Dr. Nicola iLndsey DO Other Provider Active Start: April 08, [...] Star t: April 10, 2025 Dr. Deric Lnatigua MD Other Provider Active Sta rt: April 10, 2025 Dr. Issa Looney MD Other Provider Active Start : April 10, 2025 Team Status: Active Member Role/Relationship Status Dates Dr. Tonio Fajardo DO Primary Care Provider Active Start: April 10, 2025 Dr. Tonio Fajardo DO Referring Provider Active Start: April 10, 2025 Carol Sousa Attending Provider Active Start: Vasquez ust 2024 Team Status: Inactive Member Role/Relationship Status [...] Carol Sousa Attending Provider Active Start: Vasquez 2024 End: April 10, 2025 Team Status: [...] Start: April 10, 2025 Dr. Ld Hayes , Emergency Provider Active Start : April 10, 2025 Dr. Nicola Lindsey DO Admit Provider Active Start: April 10, 2025 Dr. Nicola Lindsey , Other Provider Active Start: April 10, 2025 Dr. Dvaon Saravia MD Other Provider Active Start: April [...] 10, 2025 End: April 10, 2025 Dr. Toino Fajardo DO Referring Provider Active Start: April 10, 2025 End: April 10, 2025 Carol Sousa Attending Provider Active Start: A 2024 End: April 10, 2025 Team Status: [...] section and content) DATE CREATED AUTHOR 08/12/2022 [facility] DATE CREATED AUTHOR AUTHOR'S ORGANIZ ATION 04/17/[address] [facility] DATE CREATED AUTHOR AUTHOR'S ORGANIZ ATION 04/19/2025 [facility] MAIN FOR RECORDS PERTAINING TO PATIENTS WHO ARE [...] BE BASED ON THE PRIMARY CLINICAL RECORDS. [facility] [employer] [facility]. provides no warranty or guarantee of the accuracy or completeness of information in this document.
[2025-04-19 09:02] LABS: Hematocrit 30.6 % (40-54); Hemoglobin 9.6 g/dL (13.0-16.5); Immature Granulocytes Count 0.170 X10^3/uL (0.0-0.0); Mean Corp Hgb Conc 31.4 g/dL (32-36); Mean Corpuscular Volume 87.2 fL (80-94); Mean Platelet Vol. 11.1 fl (6.2-12.0); NRBC Flagged by Analyzer 0 % (0-5); Platelet Count 204 K/mm3 (150-450); RBC Distribution Width CV 17.2 % (11.6-14.6); RBC Distribution Width SD 54.8 fl (35.1-43.9); Red Blood Count 3.51 M/mm3 (4.6-6.2); White Blood Count 10.7 K/mm3 (4.4-11.0)
[2025-04-19 09:22] LABS: AST(SGOT) 30 U/L (<=37); Alanine Aminotransfer ALT/SGPT 27 U/L (<=46); Albumin, Serum 3.4 g/dL (3.4-4.8); Alkaline Phosphatase 79 U/L (40-129); Anion Gap 11 (5-15); BUN 40 mg/dL (4-19); BUN/Creat Ratio 22.7 RATIO (10-20); Calcium,Total 9.4 mg/dL (7.6-11.0); Carbon Dioxide 37.3 mmol/L (21.0-32.0); Chloride 87 mmol/L (98-108); Estimated Creatinine Clearance 30.56 ml/min (50-250); Globulin 3.4 g/dL (2.2-4.2); Glucose 132 mg/dL (70-99); Potassium 3.5 mmol/L (3.3-5.1)
[2025-04-19 09:23] LABS: Troponin T High Sensitivity 99 ng/L (<=22)
--- NOTE | 2025-04-19 10:11 | ED.RN ---
pt unable to perform the standing portion of the orthos, bp dropped and the pt was very dizzy and felt he was going to pass out.
[2025-04-19] MEDS: 0.9% Normal Saline (500mL Bag) 500 ML 999 ML IV (10:28)
--- NOTE | 2025-04-19 10:30 | PCA ---
THIS [facility], PT REFUSES TO BE TRANSFERRED TO [facility]
--- NOTE | 2025-04-19 10:31 | PCM.HP.STD ---
HPI - General General Date of Admission: 04/19/25 Date of Service: 04/19/25 Chief Complaint: Syncopal episode HPI Narrative PEDRO HILLMAN, is a 80 M who presented to [facility] ED on 04/19/2025 from the TCU for syncopal episode. Patient has complex recent medical history. Medical history significant for chronic persistent A-fib on Eliquis, HFpEF, CAD with CABG x 3 in 2012, PAD with aortofemoral bypass in 2009, RUL non-small cell lung cancer s/p radiation currently on observation, COPD, chronic respiratory failure on 3 L at baseline, CKD stage IIIb, type 2 diabetes mellitus, chronic anemia of renal disease and BPH with obstructive symptoms. He was hospitalized here in mid to late February with A-fib with RVR and CHF exacerbation, and then he was again hospitalized here from 04/05-04/10 for CHF exacerbation. Cardiology followed and noted that patient had tachybradycardia syndrome with difficulty controlling his heart rate, as well as high-grade pauses noted on telemetry. Given this, decision was made for permanent pacemaker placement and this was done on 04/09. Patient was then discharged to the TCU on 04/10. However, he developed worsened shortness of breath with hypoxia on 04/12 requiring movement back down to the ED, and he was found on CT chest to have a right loculated hydropneumothorax as well as right-sided pneumonia and a COPD exacerbation. He was then transferred to [place] for further management. There he had an ultrasound-guided thoracentesis with 1000 mL of fluid removed. He was treated for COPD exacerbation and pneumonia with good improvement in symptoms. Was also given doses of IV Lasix and 1 dose of metolazone therefore diuresis for concern for acute on chronic HFpEF. CT surgery there noted no need for surgery for the effusion; did note that if the effusion was recurrent, may need IR guided pleural catheter placement. Patient was stable for discharge back to her TCU on 04/17. This morning while staff in the TCU was trying to set him up to dress him, his eyes rolled back and he went unresponsive for approximately 10 to 15 seconds. Patient did note presyncopal symptoms the day prior, and nursing staff noted that after he came to, he still reported significant presyncopal symptoms with much of any movement, so they brought him down to the ED for further evaluation. In the ED he was found to be very orthostatic positive, with BP dropped from the 130 systolic to the 80s systolic when going from lying flat to sitting. He was not able to stand due to significant orthostatic symptoms. Heart rate remained at about 100 with lying flat and sitting but notably he is on a beta-joseslyn. Creatinine 1.7, slightly above baseline around 1.4. Given significant diuresis recently, was suspected that patient was dry, so he was given 500 cc normal saline bolus. Hospitalist was then contacted for admission. I saw the patient at bedside in the ED, son was present. Patient was fatigued appearing but otherwise laying back comfortably in bed and in no acute distress. Denied any lightheadedness or dizziness currently. Patient and son note that patient had significant urine output yesterday, and patient reports feeling dry and dehydrated today. No other acute concerns currently. Will be admitted for further management. [facility] Medical History (Updated 04/19/25 @ 14:[address] Kwaku Narayanan, DO) Presence of cardiac pacemaker Peripheral arterial disease Other persistent atrial fibrillation New onset atrial flutter COVID Wears hearing aid in both ears Former smoker Coronary artery disease Peripheral vascular occlusive disease BPH (benign prostatic hyperplasia) Chronic kidney disease, stage 3 Atherosclerosis of coronary artery of [place] heart without angina pectoris Hyperlipidemia Lower extremity edema Venous insufficiency Malnutrition Delayed wound healing Osteomyelitis of ankle, left, acute Ulcer of left lower extremity with fat layer exposed Type 2 diabetes mellitus with diabetic polyneuropathy Anemia GERD (gastroesophageal reflux disease) Hypertension Home Medications ?Medication ?Instructions ?Recorded ?Last Taken ?Type insulin glargine 100 unit/mL 30 unit SQ QHS diabetes 11/19/19 03/03/25 History subcutaneous solution multivitamin (Daily Multi-Vitamin 1 tab PO DAILY supplement 06/28/20 03/03/25 History tablet) sitagliptin phosphate 50 mg tablet 50 mg PO DAILY diabetes 11/02/21 03/03/25 History (Januvia) pravastatin 20 mg tablet 20 mg PO DAILY hyperlipidemia 01/17/22 03/03/25 History cranberry 500 mg capsule 500 mg PO DAILY supplement 07/25/23 03/03/25 History docusate sodium 100 mg capsule 100 mg PO DAILY PRN stool softner 07/25/23 Unknown History (Colace) albuterol sulfate 90 mcg/actuation 2 puff inhalation Q4H PRN 10/23/24 Unknown Rx aerosol inhaler shortness of breath or wheezing #3 device umeclidinium 62.5 mcg-vilanterol 1 inh inhalation QDAY copd #60 ea 10/23/24 04/08/25 Rx 25 mcg/actuation powdr for inhalation (Anoro Ellipta) apixaban 5 mg tablet (Eliquis) 2.5 mg (1/2 x 5 mg) PO BID blood 03/09/25 Unknown Rx thinner 30 days #30 tabs tamsulosin 0.4 mg capsule 0.4 mg PO DAILY@1730 prostate 30 03/09/25 Unknown Rx days #30 caps metoprolol succinate 25 mg 12.5 mg (1/2 x 25 mg) PO BID blood 04/03/25 Unknown Rx tablet,extended release 24 hr thinner #90 tabs clopidogrel 75 mg tablet 75 mg PO DAILY anti platelet 04/05/25 Unknown History insulin glargine 100 unit/mL (3 30 unit subcut QHS Blood sugar 04/05/25 Unknown History mL) subcutaneous pen (Lantus Solostar U-100 Insulin) furosemide 40 mg tablet (Lasix) 40 mg PO DAILY diuretic #60 tabs 04/08/25 Unknown Rx guaifenesin 600 mg tablet, 1,200 mg (2 x 600 mg) PO BID mucus 04/08/25 Unknown Rx extended release 12 hr (Mucinex) #20 tabs OXYGEN - Supplemental ([facility] 04/09/25 Unknown History INFORMATIONAL USE ONLY) aspirin 81 mg chewable tablet 1 tab PO DAILY Heart health 04/17/25 Unknown History ipratropium 0.5 mg-albuterol 3 mg 3 ml inhalation Q8H SOB 04/17/25 Unknown History (2.5 mg base)/3 mL nebulization soln lanolin alcohols-mineral 1 applic topical BID dry skin 04/17/25 Unknown History oil-w.petrolatum-ceresin topical cream (Eucerin topical cream) linagliptin 5 mg tablet (Tradjenta) 5 mg PO DAILY 04/19/25 Unknown History Allergy/AdvReac Type Severity Reaction Status Date / Time ibuprofen Allergy Severe Facial Verified 04/19/25 08:24 swelling (angioedema) Family History Brother Diabetes Father , Age 72 stomach ulcers No problems noted. Mother , Age 71 pancreatitis No problems noted. Sister , hepatitis C No problems noted. Surgical History History of permanent cardiac pacemaker placement H/O aorto-femoral bypass (~2009) History of transurethral resection of prostate Presence of aortocoronary bypass graft (~03/2013) Social History household members: none Smoking Status: Former smoker Tobacco: How many years used: 30 how long ago did patient quit smokin years ROS Constitutional Constitutional: Reports fatigue; Denies chills, fever(s) or weakness Eyes Eyes: Denies change in vision Cardiovascular Cardiovascular: Reports lightheadedness and syncope; Denies chest pain, edema or palpitations Respiratory/Chest Respiratory/Chest: Denies shortness of breath at rest Gastrointestinal Gastrointestinal: Denies abdominal pain, nausea or vomiting Neurologic Neurologic: Reports dizziness; Denies focal weakness, headache(s), numbness or tingling Vital Signs Vital Signs Vital Signs: 04/19/25 08:22 04/19/25 08:42 04/19/25 09:28 Temperature 97.9 F Temperature Source Oral Pulse Rate 102 H Pulse Rate [Lying] Pulse Rate [Sitting (for 1 minute prior to obtaining)] Respiratory Rate 19 H Respiratory Effort Normal Respiratory Pattern Normal Blood Pressure 133/63 H Blood Pressure [Lying] Blood Pressure [Sitting (for 1 minute prior to obtaining)] Blood Pressure Mean 86 Blood Pressure Mean [Lying] Blood Pressure Mean [Sitting (for 1 minute prior to obtaining)] Pulse Ox 98 Oxygen Delivery Method Nasal Cannula Oxygen Flow Rate (L/min) 3 04/19/25 09:45 04/19/25 09:54 Temperature Temperature Source Pulse Rate 102 H Pulse Rate [Lying] 102 H Pulse Rate [Sitting (for 1 minute prior to obtaining)] 103 H Respiratory Rate 20 H Respiratory Effort Respiratory Pattern Blood Pressure 117/60 Blood Pressure [Lying] 136/67 H Blood Pressure [Sitting (for 1 minute prior to obtaining)] 85/68 L Blood Pressure Mean 79 Blood Pressure Mean [Lying] 90 Blood Pressure Mean [Sitting (for 1 minute prior to obtaining)] 73 Pulse Ox 100 Oxygen Delivery Method Nasal Cannula Oxygen Flow Rate (L/min) 3 Weight Weight: 72.4 kg Body Mass Index (BMI) 25.7 Physical Exam Const alert, oriented x3, no apparent distress and average body habitus Constitutional Narrative: Elderly male, fatigued and somewhat chronically ill-appearing, otherwise laying back comfortably in bed, answering questions appropriately, in no acute distress. General Appearance: cooperative and comfortable HEENT normocephalic, head/scalp atraumatic, hearing grossly normal bilaterally, nasal mucous membranes and turbinates normal and moist oral mucous membranes Eyes PERRL, EOMs intact bilaterally and conjunctivae normal Neck full ROM Chest inspection of chest normal Resp normal respiratory effort and no use of accessory muscles Resp Narrative: Breathing comfortably on home 3 L nasal cannula at rest. Mildly diminished breath sounds in bilateral lung bases but no wheezing or crackles noted. Cardio no murmurs and peripheral pulses 2+ throughout Cardio Narrative: Tachycardic, regular rhythm. GI normal to inspection, nondistended, normoactive bowel sounds, soft to palpation, non-tender and non-distended Back/Spine normal ROM Extremity normal to inspection, full ROM and no pedal edema Skin no rashes or lesions noted Psych mental status grossly normal Results Lab / Micro Data 04/19/25 08:35 04/19/25 08:35 Labs: Laboratory Results - last 24 hr 04/19/25 08:35: WBC 10.7, RBC 3.51 L, Hgb 9.6 L, Hct 30.6 L, MCV 87.2, MCH 27.4, MCHC 31.4 L, RDW Std Deviation 54.8 H, RDW Coeff of Reggie 17.2 H, Plt Count 204, MPV 11.1, Immature Gran % (Auto) 1.600 H, Neut % (Auto) 75.0 H, Lymph % (Auto) 9.1 L, [place]alle % (Auto) 11.3 H, Eos % (Auto) 2.7, Baso % (Auto) 0.3, Absolute Neuts (auto) 8.0 H, Absolute Lymphs (auto) 0.97, Nucleated RBC % 0, Sodium 136, Potassium 3.5, Chloride 87 L, Carbon Dioxide 37.3 H, Anion Gap 11, BUN 40 H, Creatinine 1.74 H, Estim Creat Clear Calc 30.56 L, Est GFR (MDRD) Non-Af 39 L, BUN/Creatinine Ratio 22.7 H, Glucose 132 H, Calcium 9.4, Total Bilirubin 0.55, AST 30, ALT 27, Alkaline Phosphatase 79, Troponin T High Sens 99 H*, Total Protein 6.8, Albumin 3.4, Globulin 3.4, Albumin/Globulin Ratio 1.0 Imaging Radiology Impression Chest X-Ray 04/19/25 08:54 IMPRESSION: No significant changes on findings suggestive of CHF compared to x-ray 04/12/2025. Reading Location: [facility] Assessment & Plan Assessment/Plan (1) Syncope: (2) Orthostatic hypotension: PLAN: Plan Patient is an 80-year-old male who presented to [facility] ED on 04/19/2025 from the TCU for syncope. 1. Syncopal episode with positive orthostatics ? Admit under observation status to PCU. Suspect secondary to hypovolemia from recent overdiuresis. Orthostatics significantly positive in the ED with SBP 130s with lying flat and drop to the 80s with sitting; was not able to stand due to presyncopal symptoms. Given 500 cc bolus in the ED. Will give another 500 cc of LR over 4 hours this afternoon. Will repeat orthostatic vital signs this evening, and can consider giving further IV fluids if needed. Will hold home Lasix for now. Notably pacemaker was interrogated in the ED with no issues noted. 2. Mild creatinine elevation in setting of CKD stage IIIb ? Creatinine 1.73 on admit. Baseline appears to be around 1.4-1.5. Suspect secondary to overdiuresis as above. Giving IV fluids as above, follow-up a.m. BMP and monitor urine output. 3. 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 On home 2 L at rest and 3 L with exertion. Stable on home oxygen on admit. Recent hospitalization at [place] from 04/12-04/17 for right sided hydropneumothorax, community-acquired ammonia and COPD exacerbation, see HPI for further details. In short, had thoracentesis done with 1000 ml removed; no need for surgical intervention per CT surgery there. Chest x-ray on this admission showed diffuse interstitial pulmonary densities with costophrenic angles obscured consistent with pleural effusions. However, given his clinical presentation, suspect that these findings are more chronic in nature rather than consistent with acute HFpEF. Giving IV fluids on admit as above. Will need to watch patient's oxygenation closely. Continue home inhalers. 4. Chronic HFpEF, chronic A-fib on Eliquis, recent history of tachybradycardia syndrome and sinus pauses s/p pacemaker placement, CAD with CABG x 3, PAD with aortofemoral bypass, hypertension, hyperlipidemia ? Follows with outpatient cardiology. Recently had pacemaker placed on 04/09 for tachybradycardia syndrome and sinus pauses. In rate controlled A-fib on this admission and hypovolemic appearing on exam as above. BNP 3388, which notably is significantly less than 7022 on 04/12. Given gentle IV fluids as above. Continue home Eliquis, Plavix, Toprol, and statin. Notably, patient had been increased to Toprol 25 mg twice daily during recent [place] admission but given his presyncopal symptoms here and and remaining in rate controlled A-fib, will decrease back to prior dosing of Toprol 12.5 mg twice daily. Holding home Lasix. 5. Type 2 diabetes mellitus ? Recent A1c 6.3% on 03/04. Glucose 132 on admit. Will continue home Lantus at reduced dose of 20 units at night and start Humalog sliding scale insulin with meals, adjust as needed. Hold home linagliptin. 6. BPH with obstructive symptoms ? Okay to continue home tamsulosin 0.4 mg daily for now. However, if patient has continued significant presyncopal symptoms and positive orthostatics despite fluid resuscitation as above, may need to consider holding tamsulosin. 7. Chronic anemia of renal disease ? Hemoglobin stable at baseline 9-10 on admission. DVT prophylaxis: Not indicated, on Eliquis CODE STATUS: Full code, verified Expected disposition: Likely back to TCU, 1 to 2 days Total clinical time spent by myself addressing the patient's medical issues, reviewing all the data, and collaborating with patient's care team: 78 minutes. Charges/Coding Visit Charges Inpatient E&M: 78394 Init Hosp L3
--- NOTE | 2025-04-19 10:40 | PCA ---
[facility] CALL[facility] BACK WITH BED UPDATE, [facility] INFORMED THAT HE IS NOT A [facility] OF THE [facility], HAS NEVER BEEN AND IS NOT ONE OF THEIR LISTED PTS, WILL SEND THE REFUSAL PAPER BUT THEY SAID NOT TO HAVE HIM SIGN- IT IS JUST THEIR PROCEDURE, THEY HAVE TO SEND REGARDLESS
--- OUTSIDE RECORDS SUMMARY | 2025-04-19 10:58 | XMS RPT_ITS | CCD ---
Author Organization [facility] Care Team Providers Care Wool Dyer Name Role Phone Dr. Tonio Fajardo Primary Care Provider [phone] Dr. Tonio Fajardo Referring Provider [phone] Issa Looney Attending Provider [phone] Tonio Fajardo DO Primary Care Provider Dr. Tyrell Uriarte Attending Provider Dr. Tonio Fajardo Primary Care Provider [phone] Dr. Tonio Fajardo Referring Provider Brittny FORGER HELPER, FORGER HELPER-C Lorie Attending Provider Dr. Russ Zamora Attending Provider Renard FORGER HELPER, FORGER HELPER-C Bonny E Attending Provider Renard FORGER HELPER, FORGER HELPER-C Bonny E Referring Provider Renard FORGER HELPER, FORGER HELPER-C Bonny E Other Provider Dr. Srini Choi [...] Kenyon Flores Referring Provider Unava mp Mart FORGER HELPER, FORGER HELPER-C Lorie Attending Provider Dr. Russ Zamora Attending Provider Renard FORGER HELPER, FORGER HELPER-C Bonny E Attending Provider Renard FORGER HELPER, FORGER HELPER-C Bonny E Referring Provider Renard FORGER HELPER, FORGER HELPER-C Bonny E Other Provider Dr. Srini Choi Attending Provider Dr. Srini Choi Referring Provider Dr. Srini Choi Other Provider Dr. Mateo Shahid Attending Provider Roof FORGER HELPER, FORGER HELPER-C Iker Stephens Attending Provider Tonio Fajardo DO Primary Care Provider STEVEN RODRIGUEZ Referring Unavailable TONIO FAJARDO Primary Care Unavailable TONIO FAJARDO Primary Care Unavailable Dr. Tonio Fajardo Primary Care Provider Dr. Tonio Fajardo Referring Provider Dr. Tonio Fajardo Primary Care Provider Renard FORGER HELPER, FORGER HELPER-C Bonny E Attending Provider [phone] Renard FORGER HELPER, FORGER HELPER-C Bonny E Referring Provider [phone] Renard FORGER HELPER, FORGER HELPER-C Bonny E Other Provider Dr. Tonio Fajardo Referring Provider Dr. Russ Zamora Attending Provider Dr. Tonio Fajardo Primary Care Provider Dr. Srini Choi Attending Provider Dr. Srini Choi Referring Provider Renard FORGER HELPER, FORGER HELPER-C Bonny E Attending Provider [phone] Renard FORGER HELPER, FORGER HELPER-C Bonny E Referring Provider Renard FORGER HELPER, FORGER HELPER-C Bonny E Other Provider Dr. Tonio Fajardo Referring Provider Dr. Russ Zamora Attending Provider Dr. Tonio Fajardo Primary Care Provider Renard FORGER HELPER, FORGER HELPER-C Bonny E Attending Provider Renard FORGER HELPER, FORGER HELPER-C Bonny E Referring Provider Renard FORGER HELPER, FORGER HELPER-C Bonny E Other Provider Dr. Tonio Fajardo Referring Provider Dr. Russ Zamora Attending Provider Dr. Srini Choi Attending Provider Dr. Tyrell Uriarte Attending Provider Dr. Tonio Fajardo Primary Care Provider Renard FORGER HELPER, FORGER HELPER-C Bonny E Attending Provider Renard FORGER HELPER, FORGER HELPER-C Bonny E Referring Provider [phone] Renard FORGER HELPER, FORGER HELPER-C Bonny E Other Provider Dr. Tonio Fajardo Primary Care Provider Renard FORGER HELPER, FORGER HELPER-C Bonny E Attending Provider [phone] Renard FORGER HELPER, FORGER HELPER-C Bonny E Referring Provider Renard FORGER HELPER, FORGER HELPER-C Bonny E Other Provider [phone] Dr. Tonio Fajardo Primary Care Provider Renard FORGER HELPER, FORGER HELPER-C Bonny E Attending Provider [phone] Renard FORGER HELPER, FORGER HELPER-C Bonny E Referring Provider [phone] Renard FORGER HELPER, FORGER HELPER-C Bonny E Other Provider Dr. Tonio Fajardo Referring Provider Dr. Tonio Fajardo Primary Care Provider Renard FORGER HELPER, FORGER HELPER-C Bonny E Attending Provider Renard FORGER HELPER, FORGER HELPER-C Bonny E Referring Provider [phone] Renard FORGER HELPER, FORGER HELPER-C Bonny E Other Provider Dr. Tonio Fajardo Primary Care Provider Renard FORGER HELPER, FORGER HELPER-C Bonny E Attending Provider Renard FORGER HELPER, FORGER HELPER-C Bonny E Referring Provider Renard FORGER HELPER, FORGER HELPER-C Bonny E Other Provider Dr. Tonio Fajardo Primary Care Provider Renard FORGER HELPER, FORGER HELPER-C Bonny E Attending Provider Renard FORGER HELPER, FORGER HELPER-C Bonny E Referring Provider [phone] Renard FORGER HELPER, FORGER HELPER-C Bonny E Other Provider Dr. Tonio Fajardo Referring Provider Dr. Russ Zamora Attending Provider Dr. Tonio Fajardo Primary Care Provider Renard FORGER HELPER, FORGER HELPER-C Bonny E Attending Provider [phone] Renard FORGER HELPER, FORGER HELPER-C Bonny E Referring Provider Renard FORGER HELPER, FORGER HELPER-C Bonny E Other Provider Dr. Francisco Javier Lozada Attending Provider Dr. Joaquim Suárez Referring Provider Dr. Tonio Fajardo Primary Care Provider Renard FORGER HELPER, FORGER HELPER-C Bonny E Attending Provider Renard FORGER HELPER, FORGER HELPER-C Bonny E Referring Provider Renard CAMPUZANO, FORGER HELPER-C Bonny Melendez Other Provider Dr. Tonio Fajardo Referring Provider Dr. Russ Zamora Attending Provider Dr. Francisco Javier Lozada Attending Provider Dr. Joaquim Suárez Referring Provider Dr. Tonio Fajardo Primary Care Provider Brittny FORGER HELPER, FORGER HELPER-C Lorie Attending Provider RICKIE Alejandra Attending Provider [...] Referring Provider Brittny CAMPUZANO-CLorie Attending Provider Brittny FORGER HELPER-C, Lorie Referring Provider Brittny FORGER HELPER-C, Lorie Other Provider [phone] Tyrell Uriarte DO Attending Provider [phone] Tonio Fajardo DO Attending Provider Sera STRATTON, Dr. Solano Attending Provider Sera STRATTON, Dr. Solano Referring Provider Scotty MCGEE, Dr. Elizalde Primary Care Provider Ben Bolt , Dr. Milligan Other Provider Scotty MCGEE, Dr. Elizalde Primary Care Provider Scotty MCGEE, Dr. Elizalde Referring Provider Sera STRATTON, Dr. Solano Attending Provider Sera STRATTON, Dr. Solano Referring Provider Don STRATTON, Dr. Perez Emergency Provider Lindsey DO, Dr. Petersen Admit Provider Unavail able Lindsey DO, Dr. Petersen Attending Provider Unav ailable Scotty MCGEE, Dr. Elizadle Primary Care Provider Lindsey DO, Dr. Petersen [...] Shadi STRATTON, Dr. Graham Other Provider Michael FORGER HELPER-C, Iker Stephens Other Provider Leslie Alejandra Other Provider Tadeo Fink Other Provider Grzegorz STRATTON, Dr. Leos Other Provider Peter STRATTON, Dr. Amador Attending Provider Jailyn STRATTON, Dr. Dorsey Attending Provider Florencio STRATTON, Dr. Johnson Emergency Provider [facility] , Dr. Elizalde Referring Provider Leslie Alejandra Attending Provider Florencio STRATTON, Dr. Johnson Attending Provider [facility] , Dr. Elizalde Attending Provider Leslie Alejandra Referring Provider Carmelina [...] Provider Shadi STRATTON, Dr. Graham [facility] Stephens Other Provider Leslie Alejandra Other Provider Tadeo Fink Other Provider Grzegorz STRATTON, Dr. Leos Other Provider Peter STRATTON, Dr. Amador Attending Provider Jailyn STRATTON, Dr. Dorsey Attending Provider Florencio STRATTON, Dr. Johnson Attending Provider Florencio STRATTON, Dr. Johnson Emergency Provider Scotty MCGEE, Dr. Elizalde Referring Provider Leslie Alejandra Attending Provider Scotty MCGEE, Dr. Elizalde Attending Provider Leslie Alejandra Referring Provider Carmelina Parra Attending Provider Unavailable Carmelina Parra Referring Provider Unavailable Samm MCGEE, Dr. Jaffe Emergency Provider [phone] Lindsey DO, Dr. Petersen Attending Provider Unav simona Looney MD, Dr. Parsons Attending Provider Manjit STRATTON, Dr. Mays Other Provider Dr. Nicola Roman MD Attending Provider Unavaila ble Abel STRATTON, Dr. Petersen Other Provider Unavailable Shadi STRATTON, Dr. Graham Attending Provider Carol Sousa Attending Provider Unavailable Geovani STRATTON, Dr. Valdez Lu Admit Provider Geovani STRATTON, Dr. Valdez Lu Attending Provider Dr. Daniel Brownlee DO Emergency Provider Leslie Alejandra Referring Unavail able Tonio Fajardo Primary Care Unavailable Leslie Alejandra Attending Unavail able Tonio Fajardo Primary Care Unavailable Brittny FORGER HELPER, Lorie Attending Unavailable Brittny FORGER HELPER, Lorie Referring Unavailable Tonio Fajardo Primary Care Unavailable Tonio Fajardo Referring Unavailable Tonio Fajardo Attending Unavailable Russ Zamora Attending Unavailable Scotty, Tonio Primary Care Unavailable Scotty, Tonio Referring Unavailable Nicola Lindsey Admitting Unavailable Nicola Lindsey Consulting Unavailable Deric Lantigua Attending Unavailable Scotty, Tonio Primary Care Unavailable [...] Suárez Attending Unavailable Nicola Lindsey Admitting Unavailable Manjit, Jayaprakas Consulting Unavailable Scotty, Tonio Primary Care Unavailable Nicola Roman Attending Unavailable Nicola Lindsey Consulting Unavailable Deric Lantigua Consulting Unavailable Aayush, Issa Consulting Unavailable Scotty, Tonio Primary Care Unavailable Scotty, Tonio Referring Unavailable Carol Sousa Attending Unavailable Leslie Alejandra Referring Unavail able Aayush, Issa Attending Unavailable Scotty, Tonio Primary Care Unavailable Peter, Marjorie Attending Unavailable Scotty, Tonio Primary Care Unavailable [...] Zamora Attending Unavailable Nicola Lindsey Consulting Unavailable Grzegorz Deric Attending Unavailable Nicola Lindsey Admitting Unavailable Scotty, Tonio Primary Care Unavailable Amro, Ahmed Consulting Unavailable Jagisela, Ahmad Consulting Unavailable afvasquez Nicolette Consulting Unavailable Peter, Marjorie Consulting Unavailable Martin Vivas Consulting Unavailable Jose Lai Consulting Unavailable Aayush, [place] Consulting Unavailable Angela, Dennisk Consulting Unavailable Willian Glaser Consulting Unavailable Orly Mitchell Consulting UnavailReinaldo Lima Consulting Unavailable Guy Hsuatore Consulting Unavailable Iker Rodriguez NP Consulting Unavailable Leslie Alejandra Consulting Unavail able Tadeo Thakkar Consulting Unavailable Grzegorz, Deric Consulting Unavailable Peter, Marjorie Attending Unavailable Scotty, Tonio Primary Care Unavailable Valdez Olivo Chi Attending Unavailable GeovaniValdez Chi Admitting Unavailable Scotty, Tonio Primary Care Unavailable Brittny FORGER HELPER, Lorie Referring Unavailable Tyrell Uriarte Attending Unavailable Brittny FORGER HELPER, Lorie Consulting Unavailable Russ Zamora Referring Unavailable [...] Attending Unavailable Scotty, Tonio Primary Care Unavailable Aayush, [place] Attending Unavailable Scotty, Tonio Primary Care Unavailable Scotty, Tonio Primary Care Unavailable Leslie Alejandra Attending Unavail able Scotty, Tonio Referring Unavailable Scotty, Tonio Primary Care Unavailable Brittny FORGER HELPER, Lorie Attending Unavailable Scotty, Tonio Referring Unavailable PrahRuss Attending Unavailable Scotty, Tonio Referring Unavailable Scotty, Tonio Primary Care Unavailable Nicola Lindsey Attending Unavailable Nicola Lindsey Attending Unavailable Grzegorz, Deric Attending Unavailable Aayush, [place] Attending Unavailable Scotty, Tonio Primary Care Unavailable Geovani, Valdez Chi Referring Unavailable Valdez Olivo Chi Attending Unavailable Valdez Olivo Chi Admitting Unavailable DR TONIO FAJARDO DO Primary Care Physician DR TUNG CAAL DO Attending Unavailable HALLIE STRATTON, DR DAVID Ovalle Admitting Unavailable ABBI CARMEN MD, V Consulting Unavailable DR TONIO FAJARDO DO Primary Care Unavailab samm Brownlee DO, Dr. Sanchez Attending Provider Dr. Valdez Olivo MD, Chi Referring Provider [phone] Dr. Casper Iniguez DO Emergency Provider Allergies Allergy Classification Reported Allergen(s) Allergy Type Date of Onset Reaction(s) Facility (20 sources) Ibuprofen; Translations: [IBUPROFEN] Drug Allergy 2 Shortness of Breath [facility] Work Phone: (1 source) Ibuprofen Drug Allergy 5 [facility] Repository Medications Current Medications Medication Drug Class(es) Dates Sig (Normalized) Sig (Original) Albuterol / Ipratropium (20 sources) Anticholinergic, beta2-Adrenergic Agonist Start: 04-17-2025 DuoNeb Dose = 3 mL, Inhalation, QIDRT, 0 Refill(s) Start Date: 04/17/25 Status: Ordered Medication Dispense Status: Completed Total Allowed Fills: 1 Fills Dispensed: 0 Start: 04-17-2025 Start: 06-18-2013 End: 08-25-2013 Start: 06-18-2013 End: [...] Allowed Fills: 1 Fills Dispensed: 0 Start: 04-17-2025 Start: 08-22-2017 End: 07-26-2023 Comment on above: Take by mouth. cholecalciferol 0.125 mg oral capsule (20 sources) Vitamin D Start: 0 take 125 ug by mouth twice daily [...] 27, 2019 12:36pm take 1 capsule by [facility] once daily cholecalciferol, vitamin D3, (VITAMIN D-3) 10 mcg (400 unit) cap Take 400 Units by mouth once daily. Active Comment on above: Take 400 Units by mo ut once daily. clopidogrel 75 mg oral table [...] Start: 07-25-2023 take 1 capsule by mo ut once daily at mealtime Cranberry 500 mg capsule Active 500 mg PO DAILY July 25, 2023 1:00am supplement administer with meals Start: 07-25-2023 take 1 capsule by dc ut once daily at mealtime Cranberry 500 mg [...] mg oral capsule (20 sources) Start: 07-25-2023 Start: 04-14-2022 take 1 [...] on above: Take by mouth. Fish,Bora,Flax Oils-Om3,6,9no1 ([place] 3-6-9) 1,200 mg Capsule (8 sources) Start: 11-02-2021 take 1 capsule by mouth twice daily Fish,Bora,Flax Oils-Om3,6,9no1 ([place] 3-6-9) 1,200 mg Capsule Active 1 CAP PO TWICE A DAY November 02, 2021 1:31pm Start: 11-02-2021 take 1 capsule by mo uth twice daily Fish,Bora,Flax Oils-Om3,6,9no1 ([place] 3-6-9) 1,200 mg Capsule Active 1 CAP PO TWICE A DAY November 02, 2021 12:00am furosemide 40 mg oral tablet (8 sources) Loop Diuretic Start: 04-13-2025 Lasix 40 [...] U SQ DAILY November 19, 2019 12:00am linagliptin 5 mg oral tablet (20 sources) Dipeptidyl Peptidase 4 Inhibitor Start: 04-19-2025 Start: 08-22-2017 End: 10-24-2018 Magic Mouth Wash (Bmx) (6 sources) Start: [...] Inhibitor Start: 01-11-2022 Start: 12-03-2013 End: 06-27-2019 SITagliptin 50 mg oral table t (20 sources) Dipeptidyl Peptidase 4 Inhibitor Start: 11-02-2021 Start: 02-17-2014 End: 04-08-2014 tamsulosin hydrochloride 0.4 mg oral capsule (20 sources) alpha-Adrenergic Josselyn Start: 03-09-2025 Start: 03-21-2017 End: 03-06-2018 Start: 03-21-2017 End: 03-06-2018 Tamsulosin 0.4 MG capsule Di scontinued March 21, 2017 12:00am March 06, 2018 3:46pm Start: 08-25-2013 End: 11-26-2013 Umeclidinium-Vilanterol (20 sources) Anticholinergic, beta2-Adrenergic Agonist Start: 10-23-2024 Start: 10-23-2024 Umeclidinium-V ilanterol (Anoro Ellipta) 62.5-25 [...] 23, 2024 1:00am copd (20 sources) Start: 04-17-2025 Start: 04-09-2025 Start: 03-09-2025 End: 04-12-2025 Start: 03-09-2025 Start: 10-23-2024 Start: 10-23-2024 End: 03-09-2025 Start: 06-28-2020 Start: 11-19-2019 Start: 06-27-2019 End: 11-19-2019 Start: 03-21-2017 End: 11-19-2019 Start: 12-03-2013 End: 03-21-2017 Completed/Discontinued Medications Medication Drug Class(es) Dates Sig (Normalized) Sig (Original) acetaminophen 325 mg oral tablet (20 sources) Start: 02-07-2014 End: 11-19-2019 [id number] 200 actuat albuterol 0.09 mg/actuat metered dose [...] with spacer amoxicillin 500 mg oral tablet (12 sources) Penicillin-class Antibacterial Start: 03-15-2025 End: 04-05-2025 amoxicillin 875 mg / clavulanate 125 mg oral tablet (20 sources) Penicillin-class Antibacterial Start: 01-22-2023 End: 06-08-2023 Amoxicillin-Pot Clavulanate 875-125 mg tablet Discontinued 1 {tbl} PO Q12H 28 14 January 22, 2023 12:00am June 08, 2023 11:58am Start: 01-22-2023 End: 06-08-2023 take 1 tablet by mouth every twelve hours Amoxicillin-Pot Clavulanate Discontinued 1 TABLET PO Q12H January 22, 2023 12:00am June 08, 2023 11:58am Start: 01-12-2023 End: 06-08-2023 Start: 01-12-2023 End: 01-22-2023 Amoxicillin-Pot Clavulanate 875-125 mg tablet Discontinued 1 {tbl} PO TWICE A DAY 28 14 January 12, 2023 12:00am January 22, 2023 3:27pm Start: 01-12-2023 End: 01-22-2023 take 1 tablet by mouth twice daily Amoxicillin-Pot Clavulanate Discontinued 1 TABLET PO TWICE A DAY January 12, 2023 12:00am January 22, 2023 [...] 07-26-2023 End: 03-09-2025 Start: 07-26-2023 End: 03-09-2025 ascorbic acid 500 mg oral ca psule (20 sources) Vitamin C Start: 08-22-2017 End: 08-23-2017 calcium ascorbate 500 mg ora l tablet (20 sources) Start: 12-03-2013 End: 03-21-2017 cefdinir 300 mg oral capsule (7 sources) Cephalosporin Antibacterial Start: 04-08-2025 End: 04-17-2025 cephalexin 500 mg oral capsu le (20 sources) Cephalosporin Antibacterial Start: 05-02-2023 End: 06-08-2023 Start: 04-05-2022 End: 04-15-2022 take 1 capsule by mouth three times daily cephALEXin (KEFLEX) 500 mg capsule Indications: Burning with urination Take 1 capsule by mouth three times daily for 10 days. 30 capsule 0 04/05/2022 04/15/2022 Active Comment on above: Take 1 capsule by mo [facility] three times daily for 10 days. [...] hydrochloride 120 mg extended release oral capsule (13 sources) Calcium Channel Josselyn Start: 03-09-2025 End: 04-08-2025 diphenhydrAMINE hydrochloride 25 mg oral capsule (20 sources) Histamine-1 Receptor Antagonist Start: 12-03-2013 End: 03-21-2017 doxycycline hyclate 100 mg oral capsule (17 sources) Tetracycline-class Drug Start: 04-01-2024 End: 09-25-2024 dutasteride 0.5 mg oral capsule (20 sources) 5-alpha Reductase Inhibitor Start: 08-25-2013 End: 11-26-2013 Eucerin topical cream (1 source) Start: 04-17-2025 Eucerin topica l cream Apply 1 katia, Topical, BID, 0 Refill(s), Cream, 71.6 Start Date: 04/17/25 Status: Ordered Medication Dispense Status: Completed Total Allowed Fills: 1 Fills Dispensed: 0 Fish Oil-Fat Acid Comb.8-Hb137 ([place] 3-6-9 1,200 Mg Softgel) 1,200 MG capsule (20 sources) Start: 12-03-2013 End: 03-21-2017 Fish Oil-Fat Acid Comb.8-Hb137 ([place] 3-6-9 1,200 Mg Softgel) 1,200 MG capsule Discontinued 1000 MG PO TWICE A DAY December 03, 2013 11:07am March 21, 2017 2:47pm Start: 12-03-2013 End: 03-21-2017 Fish Oil-Fat Acid Comb.8-Hb1 37 ([place] 3-6-9 1,200 Mg Softgel) 1,200 MG capsule Discontinued 1000 mg PO TWICE A DAY December 03, 2013 12:00am March 21, 2017 2:47pm Start: 12-03-2013 End: 03-21-2017 Fish Oil-Fat Acid Comb.8-Hb1 37 ([place] 3-6-9 1,200 Mg Softgel) 1,200 MG capsule Discontinued 1000 MG PO TWICE A DAY December 02, 2013 11:00pm March 21, 2017 1:47pm Start: 12-03-2013 End: 03-21-2017 Fish Oil-Fat Acid Comb.8-Hb1 37 ([place] 3-6-9 1,200 Mg Softgel) 1,200 MG capsule [...] 21, 2017 12:00am November 19, 2019 3:48pm Pvqhlxmwczk-Rxjkmyazm-Ubwgkw er (17 sources) Start: 02-15-2024 End: 09-25-2024 Start: 02-15-2024 End: 09-25-2024 Oxrcuvaftoz-Kaetshxzd-Zrsxln er (Trelegy Ellipta) 200-62.5-25 mcg blister with device Discontinued 1 NMA INHALATION DAILY 3 February 15, 2024 12:00am September 25, 2024 2:02pm Start: 02-15-2024 End: 09-25-2024 Usttimrrgwv-Ygcwxipsh-Celvfj er (Trelegy Ellipta) 200-62.5-25 mcg blister with [...] August 25, 2013 10:01am lactobacillus acidophilus 10 [id number] unt oral capsule (20 sources) Start: 05-24-2022 End: 07-19-2022 Start: 05-24-2022 End: 07-19-2022 take 1 capsule by mouth once daily Lactobacillus Acidophilus (Probiotic Gold Acidophilus) 1 billion cell capsule Discontinued 1000 NMA PO DAILY May 24, 2022 12:00am July 19, 2022 3:27pm levoFLOXacin 250 mg oral tab let (20 sources) Quinolone Antimicrobial Start: 02-16-2020 End: 02-26-2020 lisinopril 2.5 mg oral table t (20 [...] (20 sources) beta-Adrenergic Josselyn Start: 04-01-2025 End: 04-17-2025 metoprolol succinate 25 mg oral TABLET extended release Start: 04/17/25 8:00:00 AM EDT, Dose = 25 mg, = 1 tab(s), Oral, Hold if SBP (mmHg) Start Date: 04/17/25 Stop Date: 04/17/25 Status: Completed Medication Dispense Status: Completed Total Allowed Fills: 1 Fills Dispensed: 0 Start: 07-25-2023 End: 03-09-2025 Start: 07-25-2023 End: [...] 24 hr Discontinued 12.5 mg PO DAILY August 06, 2020 9:55am January [...] tablet (20 sources) Start: 06-18-2013 End: 08-25-2013 predniSONE 20 mg oral tablet (7 sources) Start: 04-08-2025 End: 04-17-2025 Problems Active Problems Problem Classification Problem Date Documented Date Episodic/Chronic Acquired foot deformities (20 sources) Hammer toe; Translations: [Other hammer toe(s) (acquired), right foot] 11-24-2020 Chronic Acute and unspecified renal failure (20 sources) Acute renal failure syndrome; Translations: [Acute [...] lung and L adrenal gland.Comes for follow up.CT9.04/2024 shows stable changes in lungs and L [...] Coronary atherosclerosis; Translations: [Atherosclerotic heart disease of [place] coronary artery without angina pectoris] Onset: 04-10-2025 06-28-2020 Chronic Comment on above: CABG x 3 APPIAH-LAD, S VG-PDA, SVG-D1 03/2013 Deficiency and other anemia (20 sources) Anemia; Translations: [Anemia, unspecified] Onset: 04-13-2025 11-19-2019 Episodic Deficiency and other anemia (1 source) Chronic anemia 04-13-2025 Episodic Deficiency and other anemia (1 source) Anemia, unspecified; Translations: [Anemia, unspecified] Onset: 04-13-2025 Episodic Diabetes mellitus with complications (20 [...] Onset: 04-03-2025 03-06-2025 Chronic Hyperplasia of prostate (14 sources) Benign prostatic hyperplasia; Translations: [Benign prostatic [...] sources) Long-term current use of anticoagulant; Translations: [assisted (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 of anticoagulants] 03-04-2025 Episodic Other aftercare (12 sources) Long-term current use of drug therapy; Translations: [technician terminal and repeater (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 of 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/antipl atelets] 03-15-2025 Episodic Other aftercare (1 source) technician terminal and repeater (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 of anticoagulants; Translations: [technician terminal and repeater (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 of anticoagulants] Onset: 04-15-2025 Episodic [...] (peripheral) insufficiency, unspecified] Episodic Other hematologic conditions (18 sources) Increased serum protein level; Translations: [Abnormality [...] dyspnea] 07-25-2023 Episodic Other lower respiratory disease (18 sources) Nodule of lung; Translations: [Solitary pulmonary [...] [Hypoxemia] 10-23-2024 Episodic Other lower respiratory disease (18 sources) History of chronic obstructive airway disease; Translations: [Personal history of other diseases of the respiratory system] 03-04-2025 Episodic Other lower respiratory disease (16 sources) Respiratory insufficiency; Translations: [Other abnormalities of breathing] 04-05-2025 Episodic Other lower respiratory disease (1 source) Other abnormalities of breathing; Translations: [Other abnormalities of breathing] Onset: 04-15-2025 Episodic Other nervous system disorders (1 source) Polyneuropathy; Translations: [Polyneuropathy, unspecified] Onset: 04-13-2025 Chronic Other nervous system disorders (1 source) Peripheral nerve disease 04-13-2025 Chronic Other nervous system disorders (1 source) Polyneuropathy, unspecified; Translations: [Polyneuropathy, unspecified] Onset: 04-13-2025 Chronic Other nutritional; endocrine; and metabolic [...] 04-13-2025 03-04-2025 Episodic Other upper respiratory disease (12 sources) Anterior epistaxis; Translations: [Epistaxis] 03-15-2025 Episodic [...] caused by tuberculosis or sexually transmitted disease) (10 sources) Pneumonia; Translations: [Pneumonia, unspecified organism] Onset: 04-13-2025 04-13-2025 Episodic Residual codes; unclassified (20 sources) Edema of lower extremity; Translations: [Localized edema] 05-22-2020 Episodic Residual codes; unclassified (20 sources) Localized edema; Translations: [Localized edema] 12-21-2021 Episodic Residual codes; unclassified (20 sources) Localized edema; Translations: [Edema] Episodic Respiratory failure; insufficiency; arrest (adult) (16 sources) Chronic hypoxemic respiratory failure; Translations: [Chronic respiratory failure with hypoxia] Onset: 04-13-2025 03-15-2025 Chronic Respiratory failure; insufficiency; arrest (adult) (11 sources) Acute respiratory failure; Translations: [Acute respiratory failure with hypoxia] 04-10-2025 Episodic Septicemia (except in labor) (2 sources) Sepsis; Translations: [Sepsis, unspecified organism] Onset: 04-13-2025 Episodic Substance-related disorders (20 sources) [...] TO SCHEDULE YOUR APPOINTMENT. Unclassified (1 source) Chronic atrial fibrillation, unspecified; Translations: [Chronic atrial fibrillation, unspecified] Onset: 04-15-2025 Unclassified (3 sources) Other persistent atrial fibrillation; Translations: [Other persistent atrial fibrillation] Onset: 04-03-2025 Unclassified (1 source) Peripheral arterial disease 04-13-2025 [...] Profile (BMP )on 05-09-2025 BUN Normal 12-06 [facility] Comment on above: Result Comment: Canc elled via OM: Order cancelled - Patient discharged Performed By: #### L 100.0100, L500.2500 ####[facility] [address] [place], [address] BUN/CRE Normal 10-20 [facility] Comment on above: Result Comment: Canc elled via OM: Order cancelled - Patient discharged Performed By: #### L 100.0100, L500.2500 ####[facility] [address] [place], [address] Calcium Normal 7.6-11.0 [facility] Comment on above: Result Comment: Canc elled via OM: Order cancelled - Patient discharged Performed By: #### L 100.0100, L500.2500 ####[facility] [address] [place], [address] CL Normal 98-108 [facility] Comment on above: Result Comment: Canc elled via OM: Order cancelled - Patient discharged Performed By: #### L 100.0100, L500.2500 ####[facility] [address] [place], [address] CO2 Normal 21.0-32.0 [facility] Comment on above: Result Comment: Canc elled via OM: Order cancelled - Patient discharged Performed By: #### L 100.0100, L500.2500 ####[facility] [address] [place], [address] CREAT,SERUM Normal 0.70-1.20 [facility] Comment on above: Result Comment: Canc elled via OM: Order cancelled - Patient discharged Performed By: #### L 100.0100, L500.2500 ####[facility] [address] [place], [address] eGFR Normal >60 [facility] Comment on above: Result Comment: Canc elled via OM: Order cancelled - Patient discharged Performed By: #### L 100.0100, L500.2500 ####[facility] [address] [place], [address] GAP Normal 5-15 [facility] Comment on above: Result Comment: Canc elled via OM: Order cancelled - Patient discharged Performed By: #### L 100.0100, L500.2500 ####[facility] [address] [place], [address] GLU Normal 70-99 [facility] Comment on above: Result Comment: Canc elled via OM: Order cancelled - Patient discharged Performed By: #### L 100.0100, L500.2500 ####[facility] [address] [place], [address] Potassium Normal 3.3-5.1 [facility] Comment on above: Result Comment: Canc elled via OM: Order cancelled - Patient discharged Performed By: #### L 100.0100, L500.2500 ####[facility] [address] [place], [address] Basic Metabolic Profile (BMP) Normal 133-145 [facility] Comment on above: Result Comment: Canc elled via OM: Order cancelled - Patient discharged Performed By: #### L 100.0100, L500.2500 ####[facility] [address] [place], [address] CBC W/Diff, Automatedon 09-2 0-2024 Absolute Neut Normal 2.0-7.7 [facility] Comment on above: Result Comment: Canc elled via OM: Order cancelled - Patient discharged Performed By: #### L 100.0100, L500.2500 ####[facility] [address] [place], [address] HCT Normal 40-54 [facility] Comment on above: Result Comment: Canc elled via OM: Order cancelled - Patient discharged Performed By: #### L 100.0100, L500.2500 ####[facility] [address] [place], [address] HGB Normal 13.0-16.5 [facility] Comment on above: Result Comment: Canc elled via OM: Order cancelled - Patient discharged Performed By: #### L 100.0100, L500.2500 ####[facility] [address] [place], [address] MCH Normal 27.0-32.0 [facility] Comment on above: Result Comment: Canc elled via OM: Order cancelled - Patient discharged Performed By: #### L 100.0100, L500.2500 ####[facility] [address] [place], [address] MCHC Normal 32-36 [facility] Comment on above: Result Comment: Canc elled via OM: Order cancelled - Patient discharged Performed By: #### L 100.0100, L500.2500 ####[facility] [address] [place], [address] MCV Normal 80-94 [facility] Comment on above: Result Comment: Canc elled via OM: Order cancelled - Patient discharged Performed By: #### L 100.0100, L500.2500 ####[facility] [address] [place], [address] NEUT% Normal 47-70 [facility] Comment on above: Result Comment: Canc elled via OM: Order cancelled - Patient discharged Performed By: #### L 100.0100, L500.2500 ####[facility] [address] [place], [address] PLT Normal 150-450 [facility] Comment on above: Result Comment: Canc elled via OM: Order cancelled - Patient discharged Performed By: #### L 100.0100, L500.2500 ####[facility] [address] [place], [address] RBC Normal 4.6-6.2 [facility] Comment on above: Result Comment: Canc elled via OM: Order cancelled - Patient discharged Performed By: #### L 100.0100, L500.2500 ####[facility] [address] [place], [address] RDW CV Normal 11.6-14.6 [facility] Comment on above: Result Comment: Canc elled via OM: Order cancelled - Patient discharged Performed By: #### L 100.0100, L500.2500 ####[facility] [address] [place], [address] RDW SD Normal 35.1-43.9 [facility] Comment on above: Result Comment: Canc elled via OM: Order cancelled - Patient discharged Performed By: #### L 100.0100, L500.2500 ####[facility] [address] [place], [address] WBC Normal 4.4-11.0 [facility] Comment on above: Result Comment: Canc elled via OM: Order cancelled - Patient discharged Performed By: #### L 100.0100, L500.2500 ####[facility] [address] [place], [address] Basic Metabolic Profile (BMP )on 05-02-2025 BUN Normal -19 [facility] Comment on above: Result Comment: Canc elled via OM: Order cancelled - Patient discharged Performed By: #### L 100.0100, L500.2500 ####[facility] [address] [place], [address] BUN/CRE Normal 10-20 [facility] Comment on above: Result Comment: Canc elled via OM: Order cancelled - Patient discharged Performed By: #### L 100.0100, L500.2500 ####[facility] [address] [place], [address] Calcium Normal 7.6-11.0 [facility] Comment on above: Result Comment: Canc elled via OM: Order cancelled - Patient discharged Performed By: #### L 100.0100, L500.2500 ####[facility] [address] [place], [address] CL Normal 98-108 [facility] Comment on above: Result Comment: Canc elled via OM: Order cancelled - Patient discharged Performed By: #### L 100.0100, L500.2500 ####[facility] [address] [place], [address] CO2 Normal 21.0-32.0 [facility] Comment on above: Result Comment: Canc elled via OM: Order cancelled - Patient discharged Performed By: #### L 100.0100, L500.2500 ####[facility] [address] [place], [address] CREAT,SERUM Normal 0.70-1.20 [facility] Comment on above: Result Comment: Canc elled via OM: Order cancelled - Patient discharged Performed By: #### L 100.0100, L500.2500 ####[facility] [address] [place], [address] eGFR Normal >60 [facility] Comment on above: Result Comment: Canc elled via OM: Order cancelled - Patient discharged Performed By: #### L 100.0100, L500.2500 ####[facility] [address] [place], [address] GAP Normal 5-15 [facility] Comment on above: Result Comment: Canc elled via OM: Order cancelled - Patient discharged Performed By: #### L 100.0100, L500.2500 ####[facility] [address] [place], [address] GLU Normal 70-99 [facility] Comment on above: Result Comment: Canc elled via OM: Order cancelled - Patient discharged Performed By: #### L 100.0100, L500.2500 ####[facility] [address] [place], [address] Potassium Normal 3.3-5.1 [facility] Comment on above: Result Comment: Canc elled via OM: Order cancelled - Patient discharged Performed By: #### L 100.0100, L500.2500 ####[facility] [address] [place], [address] Basic Metabolic Profile (BMP) Normal 133-145 [facility] Comment on above: Result Comment: Canc elled via OM: Order cancelled - Patient discharged Performed By: #### L 100.0100, L500.2500 ####[facility] [address] [place], [address] CBC W/Diff, Automatedon 04-20 Absolute Neut Normal 2.0-7.7 [facility] Comment on above: Result Comment: Canc elled via OM: Order cancelled - Patient discharged Performed By: #### L 100.0100, L500.2500 ####[facility] [address] [place], [address] HCT Normal 40-54 [facility] Comment on above: Result Comment: Canc elled via OM: Order cancelled - Patient discharged Performed By: #### L 100.0100, L500.2500 ####[facility] [address] [place], [address] HGB Normal 13.0-16.5 [facility] Comment on above: Result Comment: Canc elled via OM: Order cancelled - Patient discharged Performed By: #### L 100.0100, L500.2500 ####[facility] [address] [place], [address] MCH Normal 27.0-32.0 [facility] Comment on above: Result Comment: Canc elled via OM: Order cancelled - Patient discharged Performed By: #### L 100.0100, L500.2500 ####[facility] [address] [place], [address] MCHC Normal 32-36 [facility] Comment on above: Result Comment: Canc elled via OM: Order cancelled - Patient discharged Performed By: #### L 100.0100, L500.2500 ####[facility] [address] [place], [address] MCV Normal 80-94 [facility] Comment on above: Result Comment: Canc elled via OM: Order cancelled - Patient discharged Performed By: #### L 100.0100, L500.2500 ####[facility] [address] [place], [address] NEUT% Normal 47-70 [facility] Comment on above: Result Comment: Canc elled via OM: Order cancelled - Patient discharged Performed By: #### L 100.0100, L500.2500 ####[facility] [address], [address] PLT Normal 150-450 [facility] Comment on above: Result Comment: Canc elled via OM: Order cancelled - Patient discharged Performed By: #### L 100.0100, L500.2500 ####[facility] [address] [place], [address] RBC Normal 4.6-6.2 [facility] Comment on above: Result Comment: Canc elled via OM: Order cancelled - Patient discharged Performed By: #### L 100.0100, L500.2500 ####[facility] [address] [place], [address] RDW CV Normal 11.6-14.6 [facility] Comment on above: Result Comment: Canc elled via OM: Order cancelled - Patient discharged Performed By: #### L 100.0100, L500.2500 ####[facility] [address] [place], [address] RDW SD Normal 35.1-43.9 [facility] Comment on above: Result Comment: Canc elled via OM: Order cancelled - Patient discharged Performed By: #### L 100.0100, L500.2500 ####[facility] [address] [place], [address] WBC Normal 4.4-11.0 [facility] Comment on above: Result Comment: Canc elled via OM: Order cancelled - Patient discharged Performed By: #### L 100.0100, L500.2500 ####[facility] [address] [place], [address] Basic Metabolic Profile (BMP )on 04-25-2025 BUN Normal 4-19 [facility] Comment on above: Result Comment: Canc elled via OM: Order cancelled - Patient discharged Performed By: #### L 500.2500, L100.0100 ####[facility] [address] [place], [address] BUN/CRE Normal 10-20 [facility] Comment on above: Result Comment: Canc elled via OM: Order cancelled - Patient discharged Performed By: #### L 500.2500, L100.0100 ####[facility] [address] [place], [address] Calcium Normal 7.6-11.0 [facility] Comment on above: Result Comment: Canc elled via OM: Order cancelled - Patient discharged Performed By: #### L 500.2500, L100.0100 ####[facility] [address] [place], [address] CL Normal 98-108 [facility] Comment on above: Result Comment: Canc elled via OM: Order cancelled - Patient discharged Performed By: #### L 500.2500, L100.0100 ####[facility] [address] [place], [address] CO2 Normal 21.0-32.0 [facility] Comment on above: Result Comment: Canc elled via OM: Order cancelled - Patient discharged Performed By: #### L 500.2500, L100.0100 ####[facility] [address] [place], [address] CREAT,SERUM Normal 0.70-1.20 [facility] Comment on above: Result Comment: Canc elled via OM: Order cancelled - Patient discharged Performed By: #### L 500.2500, L100.0100 ####[facility] [address] [place], [address] eGFR Normal >60 [facility] Comment on above: Result Comment: Canc elled via OM: Order cancelled - Patient discharged Performed By: #### L 500.2500, L100.0100 ####[facility] [address] [place], [address] GAP Normal 5-15 [facility] Comment on above: Result Comment: Canc elled via OM: Order cancelled - Patient discharged Performed By: #### L 500.2500, L100.0100 ####[facility] [address] [place], [address] GLU Normal 70-99 [facility] Comment on above: Result Comment: Canc elled via OM: Order cancelled - Patient discharged Performed By: #### L 500.2500, L100.0100 ####[facility] [address] [place], [address] Potassium Normal 3.3-5.1 [facility] Comment on above: Result Comment: Canc elled via OM: Order cancelled - Patient discharged Performed By: #### L 500.2500, L100.0100 ####[facility] [address] [place], [address] Basic Metabolic Profile (BMP) Normal 133-145 [facility] Comment on above: Result Comment: Canc elled via OM: Order cancelled - Patient discharged Performed By: #### L 500.2500, L100.0100 ####[facility] [address] [place], [address] CBC W/Diff, Automatedon 09-0 -2024 Absolute Neut Normal 2.0-7.7 [facility] Comment on above: Result Comment: Canc elled via OM: Order cancelled - Patient discharged Performed By: #### L 500.2500, L100.0100 ####[facility] [address] [place], [address] HCT Normal 40-54 [facility] Comment on above: Result Comment: Canc elled via OM: Order cancelled - Patient discharged Performed By: #### L 500.2500, L100.0100 ####[facility] [address] [place], [address] HGB Normal 13.0-16.5 [facility] Comment on above: Result Comment: Canc elled via OM: Order cancelled - Patient discharged Performed By: #### L 500.2500, L100.0100 ####[facility] [address] [place], [address] MCH Normal 27.0-32.0 [facility] Comment on above: Result Comment: Canc elled via OM: Order cancelled - Patient discharged Performed By: #### L 500.2500, L100.0100 ####[facility] [address] [place], [address] MCHC Normal 32-36 [facility] Comment on above: Result Comment: Canc elled via OM: Order cancelled - Patient discharged Performed By: #### L 500.2500, L100.0100 ####[facility] [address] [place], [address] MCV Normal 80-94 [facility] Comment on above: Result Comment: Canc elled via OM: Order cancelled - Patient discharged Performed By: #### L 500.2500, L100.0100 ####[facility] [address] [place], [address] NEUT% Normal 47-70 [facility] Comment on above: Result Comment: Canc elled via OM: Order cancelled - Patient discharged Performed By: #### L 500.2500, L100.0100 ####[facility] [address] [place], [address] PLT Normal 150-450 [facility] Comment on above: Result Comment: Canc elled via OM: Order cancelled - Patient discharged Performed By: #### L 500.2500, L100.0100 ####[facility] [address] [place], [address] RBC Normal 4.6-6.2 [facility] Comment on above: Result Comment: Canc elled via OM: Order cancelled - Patient discharged Performed By: #### L 500.2500, L100.0100 ####[facility] [address] [place], [address] RDW CV Normal 11.6-14.6 [facility] Comment on above: Result Comment: Canc elled via OM: Order cancelled - Patient discharged Performed By: #### L 500.2500, L100.0100 ####[facility] [address] [place], [address] RDW SD Normal 35.1-43.9 [facility] Comment on above: Result Comment: Canc elled via OM: Order cancelled - Patient discharged Performed By: #### L 500.2500, L100.0100 ####[facility] [address] [place], [address] WBC Normal 4.4-11.0 [facility] Comment on above: Result Comment: Canc elled via OM: Order cancelled - Patient discharged Performed By: #### L 500.2500, L100.0100 ####[facility] [address] [place], [address] Absolute lymphocyte countOrd ered By: Casper Iniguez on 04-19-2025 Lymphocytes Auto (Unsp spec) [#/Vol] 0.97 10*3/uL 0.83-4.51 [facility] Anion gap in Serum or Plasma Ordered By: Casper Iniguez on 04-19-2025 Anion gap [Moles/Vol] 11 mmol/L 5-15 [facility] Automated lymphocyte count a s percentage of total leukocytesOrdered By: Casper Iniguez on 04-19-2025 Lymphocytes/100 WBC Auto (Unsp spec) 9.1 % Low 19-41 [facility] BUN/creatinine ratioOrdered By: Casper Iniguez on 04-19-2025 Urea nitrogen/Creatinine [Mass ratio] 22.7 mg/mg High 10-20 [facility] Basophil percentageOrdered B y: Casper Iniguez on 04-19-2025 Basophils/100 WBC (Bld) 0.3 % 0-1 [facility] Bilirubin, totalOrdered By: Casper Iniguez on 04-19-2025 Bilirubin [Mass/Vol] 0.55 mg/dL 0.00-1.30 [facility] Carbon dioxide, total [Moles /volume] in Central venous bloodOrdered By: Casper Iniguez on 04-19-2025 CO2 [Moles/Vol] 37.3 mmol/L High 21.0-32.0 [facility] Chloride assayOrdered By: real Iniguez on 04-19-2025 Chloride [Moles/Vol] 87 mmol/L Low 98-108 [facility] Eosinophil percentageOrdered By: Casper Iniguez on 04-19-2025 Eosinophils/100 WBC (Bld) 2.7 % 0-5 [facility] Erythrocyte distribution wid th ratioOrdered By: Casper Iniguez on 04-19-2025 Erythrocyte distribution width (RBC) [Ratio] 17.2 % High 11.6-14.6 [facility] Erythrocyte distribution wid th standard deviationOrdered By: Casper Iniguez on 04-19-2025 Erythrocyte distribution width (RBC) [Ratio] 54.8 fl High 35.1-43.9 [facility] Glomerular filtration rate ( GFR) estimation/1.73 sq m using serum, plasma, or whole bOrdered By: Casper Iniguez on 04-19-2025 GFR/1.73 sq M.predicted among non-blacks MDRD (S/P/Bld) [Vol rate/Area] 39 mL/min/{1.73_m2} Low >60 [facility] Gl[facility] at [facility] deOrdered By: Valdez Olivo on 04-19-2025 Glucose [Mass/Vol] 123 mg/dL High 74-106 [facility] Hematocrit Auto (Bld) [Volum e fraction]Ordered By: Casper Iniguez on 04-19-2025 Hematocrit (Bld) [Volume fraction] 30.6 % Low 40-54 [facility] Hemoglobin measurementOrdere d By: Casper Iniguez on 04-19-2025 Hemoglobin (Bld) [Mass/Vol] 9.6 g/dL Low 13.0-16.5 [facility] Immature granulocytes/100 WB C Auto (Bld)Ordered By: Casper Iniguez on 04-19-2025 Immature granulocytes/100 WBC (Bld) 1.600 % High 0.0-0.9 [facility] MCV (mean corpuscular volume ) determinationOrdered By: Casper Iniguez on 04-19-2025 MCV (RBC) [Entitic vol] 87.2 fL 80-94 [facility] Mean corpuscular hemoglobin (MCH) determinationOrdered By: Casper Iniguez on 04-19-2025 MCH (RBC) [Entitic mass] 27.4 pg 27.0-32.0 [facility] Monocyte percentageOrdered B y: Casper Iniguez on 04-19-2025 Monocytes/100 WBC (Bld) 11.3 % High 0-10 [facility] Neutrophil percentageOrdered By: Casper Iniguez on 04-19-2025 Neutrophils/100 WBC (Bld) 75.0 % High 47-70 [facility] No Panel InformationOrdered By: Casper Iniguez on 04-19-2025 30 U/L <38 [facility] Platelet countOrdered By: Akin Iniguez on 04-19-2025 Platelets (Bld) [#/Vol] 204 10*3/uL 150-450 [facility] Potassium measurement (mass/ volume)Ordered By: Casper Iniguez on 04-19-2025 Potassium (Unsp spec) [Mass/Vol] 3.5 mmol/L 3.3-5.1 [facility] RBC Auto (Bld) [#/Vol]Ordere d By: Casper Iniguez on 04-19-2025 RBC (Bld) [#/Vol] 3.51 10*6/uL Low 4.6-6.2 [facility] Serum creatinine measurement (mass/volume)Ordered By: Casper Iniguez on 04-19-2025 Creatinine [Mass/Vol] 1.74 mg/dL High 0.70-1.20 [facility] Serum globulin measurementOr dered By: Casper Iniguez on 04-19-2025 Globulin (S) [Mass/Vol] 3.4 g/dL 2.2-4.2 [facility] Serum glucose measurement (m ass/volume)Ordered By: Casper Iniguez on 04-19-2025 Glucose [Mass/Vol] 132 mg/dL High 70-99 [facility] Serum or plasma alanine ortiz otransferase (ALT) measurementOrdered By: Casper Iniguez on 04-19-2025 ALT [Catalytic activity/Vol] 27 U/L <47 [facility] Serum or plasma albumin [place] urement (mass/volume)Ordered By: Casper Iniguez on 04-19-2025 Albumin [Mass/Vol] 3.4 g/dL 3.4-4.8 [facility] Serum or plasma albumin/glob ulin mass ratioOrdered By: Casper Iniguez on 04-19-2025 Albumin/Globulin [Mass ratio] 1.0 {ratio} 0.9-2.4 [facility] Serum or plasma alkaline [place] sphatase measurementOrdered By: Casper Iniguez on 04-19-2025 ALP [Catalytic activity/Vol] 79 U/L 40-129 [facility] Serum or plasma calcium [place] urement (mass/volume)Ordered By: Casper Iniguez on 04-19-2025 Calcium [Mass/Vol] 9.4 mg/dL 7.6-11.0 [facility] Serum or plasma urea nitroge n measurement (mass/volume)Ordered By: Casper Iniguez on 04-19-2025 Urea nitrogen [Mass/Vol] 40 mg/dL High 4- [facility] Sodium levelOrdered By: Rema Iniguez on 04-19-2025 Sodium [Moles/Vol] 136 mmol/L 133-145 [facility] Total proteinOrdered By: Shira Iniguez on 04-19-2025 Protein [Mass/Vol] 6.8 g/dL 5.9-8.4 [facility] Troponin T.cardiac [Mass/vol ume] in Serum or Plasma by High sensitivity methodOrdered By: Casper Iniguez on 04-19-2025 Troponin T.cardiac High sensitivity method [Mass/Vol] 99 ng/L High <22 [facility] White blood cell (WBC) count Ordered By: Casper Iniguez on 04-19-2025 WBC (Bld) [#/Vol] 10.7 10*3/uL 4.4-11.0 [facility] Absolute lymphocyte countOrd ered By: Valdez Olivo on 04-18-2025 Lymphocytes Auto (Unsp spec) [#/Vol] 0.61 10*3/uL Low 0.83-4.51 [facility] Anion gap in Serum or Plasma Ordered By: Valdez Olivo on 04-18-2025 Anion gap [Moles/Vol] 12 mmol/L 5-15 [facility] Automated lymphocyte count a s percentage of total leukocytesOrdered By: Valdez Olivo on 04-18-2025 Lymphocytes/100 WBC Auto (Unsp spec) 6.2 % Low 19-41 [facility] BUN/creatinine ratioOrdered By: Valdez Olivo on 04-18-2025 Urea nitrogen/Creatinine [Mass ratio] 25.1 mg/mg High 10- [facility] Basic Metabolic Profile (BMP )on 04-18-2025 BUN Normal - [facility] Comment on above: Result Comment: Loyda pemberton via OM: Order cancelled - Patient discharged Performed By: #### L 100.0100, L500.2500 ####[facility] [address] [place], [address] BUN/CRE Normal - [facility] Comment on above: Result Comment: Canc elled via OM: Order cancelled - Patient discharged Performed By: #### L 100.0100, L500.2500 ####[facility] [address] [place], [address] Calcium Normal 7.6-11.0 [facility] Comment on above: Result Comment: Canc elled via OM: Order cancelled - Patient discharged Performed By: #### L 100.0100, L500.2500 ####[facility] [address] [place], [address] CL Normal 98-108 [facility] Comment on above: Result Comment: Canc elled via OM: Order cancelled - Patient discharged Performed By: #### L 100.0100, L500.2500 ####[facility] [address] [place], [address] CO2 Normal 21.0-32.0 [facility] Comment on above: Result Comment: Canc elled via OM: Order cancelled - Patient discharged Performed By: #### L 100.0100, L500.2500 ####[facility] [address] [place], [address] CREAT,SERUM Normal 0.70-1.20 [facility] Comment on above: Result Comment: Canc elled via OM: Order cancelled - Patient discharged Performed By: #### L 100.0100, L500.2500 ####[facility] [address] [place], [address] eGFR Normal >60 [facility] Comment on above: Result Comment: Canc elled via OM: Order cancelled - Patient discharged Performed By: #### L 100.0100, L500.2500 ####[facility] [address] [place], [address] GAP Normal 5-15 [facility] Comment on above: Result Comment: Canc elled via OM: Order cancelled - Patient discharged Performed By: #### L 100.0100, L500.2500 ####[facility] [address] [place], [address] GLU Normal 70-99 [facility] Comment on above: Result Comment: Canc elled via OM: Order cancelled - Patient discharged Performed By: #### L 100.0100, L500.2500 ####[facility] [address] [place], [address] Potassium Normal 3.3-5.1 [facility] Comment on above: Result Comment: Canc elled via OM: Order cancelled - Patient discharged Performed By: #### L 100.0100, L500.2500 ####[facility] [address] [place], [address] Basic Metabolic Profile (BMP) Normal 133-145 [facility] Comment on above: Result Comment: Canc elled via OM: Order cancelled - Patient discharged Performed By: #### L 100.0100, L500.2500 ####[facility] [address] [place], [address] Basophil percentageOrdered B y: Valdez Olivo on 04-18-2025 Basophils/100 WBC (Bld) 0.2 % 0-1 [facility] CBC W/Diff, Automatedon 03-22 Absolute Neut Normal 2.0-7.7 [facility] Comment on above: Result Comment: Canc elled via OM: Order cancelled - Patient discharged Performed By: #### L 100.0100, L500.2500 ####[facility] [address] [place], [address] HCT Normal 40-54 [facility] Comment on above: Result Comment: Canc elled via OM: Order cancelled - Patient discharged Performed By: #### L 100.0100, L500.2500 ####[facility] [address] [place], [address] HGB Normal 13.0-16.5 [facility] Comment on above: Result Comment: Canc elled via OM: Order cancelled - Patient discharged Performed By: #### L 100.0100, L500.2500 ####[facility] [address] [place], [address] MCH Normal 27.0-32.0 [facility] Comment on above: Result Comment: Canc elled via OM: Order cancelled - Patient discharged Performed By: #### L 100.0100, L500.2500 ####[facility] [address] [place], [address] MCHC Normal 32-36 [facility] Comment on above: Result Comment: Canc elled via OM: Order cancelled - Patient discharged Performed By: #### L 100.0100, L500.2500 ####[facility] [address] [place], [address] MCV Normal 80-94 [facility] Comment on above: Result Comment: Canc elled via OM: Order cancelled - Patient discharged Performed By: #### L 100.0100, L500.2500 ####[facility] [address] [place], [address] NEUT% Normal 47-70 [facility] Comment on above: Result Comment: Canc elled via OM: Order cancelled - Patient discharged Performed By: #### L 100.0100, L500.2500 ####[facility] [address] [place], [address] PLT Normal 150-450 [facility] Comment on above: Result Comment: Canc elled via OM: Order cancelled - Patient discharged Performed By: #### L 100.0100, L500.2500 ####[facility] [address] [place], [address] RBC Normal 4.6-6.2 [facility] Comment on above: Result Comment: Canc elled via OM: Order cancelled - Patient discharged Performed By: #### L 100.0100, L500.2500 ####[facility] [address] [place], [address] RDW CV Normal 11.6-14.6 [facility] Comment on above: Result Comment: Canc elled via OM: Order cancelled - Patient discharged Performed By: #### L 100.0100, L500.2500 ####[facility] [address] [place], [address] RDW SD Normal 35.1-43.9 [facility] Comment on above: Result Comment: Canc elled via OM: Order cancelled - Patient discharged Performed By: #### L 100.0100, L500.2500 ####[facility] [address] [place], [address] WBC Normal 4.4-11.0 [facility] Comment on above: Result Comment: Canc elled via OM: Order cancelled - Patient discharged Performed By: #### L 100.0100, L500.2500 ####[facility] [address] [place], [address] Carbon dioxide, total [Moles /volume] in Central venous bloodOrdered By: Valdez Olivo on 04-18-2025 CO2 [Moles/Vol] 36.0 mmol/L High 21.0-32.0 [facility] Chloride assayOrdered By: Aiden Olivo on 04-18-2025 Chloride [Moles/Vol] 89 mmol/L Low 98-108 [facility] Eosinophil percentageOrdered By: Valdez Olivo on 04-18-2025 Eosinophils/100 WBC (Bld) 3.3 % 0-5 [facility] Erythrocyte distribution wid th ratioOrdered By: Valdez Olivo on 04-18-2025 Erythrocyte distribution width (RBC) [Ratio] 17.0 % High 11.6-14.6 [facility] Erythrocyte distribution wid th standard deviationOrdered By: Valdez Olivo on 04-18-2025 Erythrocyte distribution width (RBC) [Ratio] 52.7 fl High 35.1-43.9 [facility] Glomerular filtration rate ( GFR) estimation/1.73 sq m using serum, plasma, or whole bOrdered By: Valdez Olivo on 04-18-2025 GFR/1.73 sq M.predicted among non-blacks MDRD (S/P/Bld) [Vol rate/Area] 39 mL/min/{1.73_m2} Low >60 [facility] Hematocrit Auto (Bld) [Volum e fraction]Ordered By: Valdez Olivo on 04-18-2025 Hematocrit (Bld) [Volume fraction] 28.6 % Low 40-54 [facility] Hemoglobin measurementOrdere d By: Valdez Olivo on 04-18-2025 Hemoglobin (Bld) [Mass/Vol] 9.0 g/dL Low 13.0-16.5 [facility] Immature granulocytes/100 WB C Auto (Bld)Ordered By: Valdez Olivo on 04-18-2025 Immature granulocytes/100 WBC (Bld) 1.400 % High 0.0-0.9 [facility] MCV (mean corpuscular volume ) determinationOrdered By: Valdez Olivo on 04-18-2025 MCV (RBC) [Entitic vol] 85.9 fL 80-94 [facility] Mean corpuscular hemoglobin (MCH) determinationOrdered By: Valdez Olivo 04-18-2025 MCH (RBC) [Entitic mass] 27.0 pg 27.0-32.0 [facility] Monocyte percentageOrdered B y: Valdez Olivo on 04-18-2025 Monocytes/100 WBC (Bld) 11.2 % High 0-10 [facility] Neutrophil percentageOrdered By: Valdez Olivo on 04-18-2025 Neutrophils/100 WBC (Bld) 77.7 % High 47-70 [facility] Platelet countOrdered By: Aiden Olivo on 04-18-2025 Platelets (Bld) [#/Vol] 186 10*3/uL 150-450 [facility] Potassium measurement (mass/ volume)Ordered By: Valdez Olivo on 04-18-2025 Potassium (Unsp spec) [Mass/Vol] 3.4 mmol/L 3.3-5.1 [facility] RBC Auto (Bld) [#/Vol]Ordere d By: Valdez Olivo on 04-18-2025 RBC (Bld) [#/Vol] 3.33 10*6/uL Low 4.6-6.2 [facility] Serum creatinine measurement (mass/volume)Ordered By: Valdez Geovani on 04-18-2025 Creatinine [Mass/Vol] 1.73 mg/dL High 0.70-1.20 [facility] Serum glucose measurement (m ass/volume)Ordered By: Valdez Geovani on 04-18-2025 Glucose [Mass/Vol] 104 mg/dL High 70-99 [facility] Serum or plasma calcium [place] urement (mass/volume)Ordered By: Valdez Geovani on 04-18-2025 Calcium [Mass/Vol] 9.1 mg/dL 7.6-11.0 [facility] Serum or plasma urea nitroge n measurement (mass/volume)Ordered By: Valdez Geovani on 04-18-2025 Urea nitrogen [Mass/Vol] 43 mg/dL High 4-19 [facility] Sodium levelOrdered By: Valdez Geovani on 04-18-2025 Sodium [Moles/Vol] 137 mmol/L 133-145 [facility] White blood cell (WBC) count Ordered By: Valdez Olivo on 04-18-2025 WBC (Bld) [#/Vol] 9.9 10*3/uL 4.4-11.0 [facility] .Auto Diffon 04-17-2025 Basophil, Absolute 0.0 10 3/mcL Normal 0.0-0.3 [facility] Comment on above: Performed By: #### P ROBF, BFPR, PHBF, BFCT, GLUBF, LDBF #### [address] [address] Basophils/100 WBC (Bld) 0.6 % Normal 0.0-2.5 [facility] Comment on above: Performed By: #### P ROBF, BFPR, PHBF, BFCT, GLUBF, LDBF #### [address] [address] Eosinophil, Absolute 0.4 10 3/mcL Normal 0.0-0.7 [facility] Comment on above: Performed By: #### P ROBF, BFPR, PHBF, BFCT, GLUBF, LDBF #### [address] [address] Eosinophils/100 WBC (Bld) 4.2 % Normal 0.0-6.0 [facility] Comment on above: Performed By: #### P ROBF, BFPR, PHBF, BFCT, GLUBF, LDBF #### [address] [address] Lymphocyte, Absolute 0.5 10 3/mcL Low 0.9-4.3 [facility] Comment on above: Performed By: #### P ROBF, BFPR, PHBF, BFCT, GLUBF, LDBF #### [address] [address] Lymphocytes/100 WBC (Bld) 5.5 % Low 20.0-40.0 [facility] Comment on above: Performed By: #### P ROBF, BFPR, PHBF, BFCT, GLUBF, LDBF #### [address] [address] Monocyte, Absolute 0.8 10 3/mcL Normal 0.1-1.4 [facility] Comment on above: Performed By: #### P ROBF, BFPR, PHBF, BFCT, GLUBF, LDBF #### [address] [address] Monocytes/100 WBC (Bld) 9.6 % Normal 2.0-13.0 [facility] Comment on above: Performed By: #### P ROBF, BFPR, PHBF, BFCT, GLUBF, LDBF #### [address] [address] Neutrophils/100 WBC (Bld) 80.1 % High 50.0-75.0 [facility] Comment on above: Performed By: #### P ROBF, BFPR, PHBF, BFCT, GLUBF, LDBF #### [address] [address] .GFRon 04-17-2025 Estimated Glomerular Filtration Rate 43 ml/min/1.73sqm Normal [facility] Comment on above: Result Comment: Stages [...] calculate the eGFR results. Performed By: #### P ROBF, BFPR, PHBF, BFCT, GLUBF, LDBF #### [place] [address] .NEUABSon 04-17-2025 Neutrophil, Absolute 7.1 10 3/mcL Normal 2.3-8.1 [facility] Comment on above: Performed By: #### P ROBF, BFPR, PHBF, BFCT, GLUBF, LDBF #### [place] [address] APTTon 04-17-2025 aPTT Coag (Bld) [Time] 73.1 s High 25.0-35.0 [facility] Comment on above: Result Comment: For Heparin anticoagulation therapy, the recommended therapeutic range is: 54-77 seconds (APTT Correlation with Anti-Xa therapeutic range of 0.3-0.7 units/ml). PLEASE REFERENCE THE PHARMACY PROTOCOL FOR DOSING. Performed By: #### P ROBF, BFPR, PHBF, BFCT, GLUBF, LDBF #### [place] [address] aPTT Coag (Bld) [Time] 68.5 s High 25.0-35.0 [facility] Comment on above: Result Comment: For Heparin anticoagulation therapy, the recommended therapeutic range is: 54-77 seconds (APTT Correlation with Anti-Xa therapeutic range of 0.3-0.7 units/ml). PLEASE REFERENCE THE PHARMACY PROTOCOL FOR DOSING. Performed By: #### P ROBF, BFPR, PHBF, BFCT, GLUBF, LDBF #### [address] [address] BFPRon 04-17-2025 Body Fluid Path Review Normal [facility] Comment on above: Order Comment: Added by Discern Result Comment: Nega tive for malignant cells. (This evaluation is based on a screening review of one cytospin slide prepared primarily for differential cell count; if clinical index of suspicion is high, Cytology evaluation is recommended, as clinically indicated) Electronically signed by: MÓNICA VIEIRA 04.17.2025 14:50 EDT Performed By: #### P ROBF, BFPR, PHBF, BFCT, GLUBF, LDBF #### [address] [address] Bedside Glucoseon 04-17-2025 [place] GLU 191 mg/dL High 74-106 [facility] Comment on above: Result Comment: KODY GEMENT OF PATIENT CARE PER NURSING PROTOCOL Performed By: #### L 501.080 ####[facility] [address] [place], [address] CBCon 04-17-2025 Erythrocyte distribution width (RBC) [Ratio] 18.3 % High 11.5-15.5 [facility] Comment on above: Performed By: #### P ROBF, BFPR, PHBF, BFCT, GLUBF, LDBF #### [address] [address] Hematocrit (Bld) [Volume fraction] 27.4 % Low 40.0-52.0 [facility] Comment on above: Performed By: #### P ROBF, BFPR, PHBF, BFCT, GLUBF, LDBF #### [address] [address] Hgb 9.0 G/dL Low 13.0-17.5 [facility] Comment on above: Performed By: #### P ROBF, BFPR, PHBF, BFCT, GLUBF, LDBF #### [address] [address] MCH (RBC) [Entitic mass] 27.3 pg Normal 27.0-33.0 [facility] Comment on above: Performed By: #### P ROBF, BFPR, PHBF, BFCT, GLUBF, LDBF #### [place] [address] MCHC 32.7 G/dL Normal 32.0-36.0 [facility] Comment on above: Performed By: #### P ROBF, BFPR, PHBF, BFCT, GLUBF, LDBF #### [place] [address] MCV (RBC) [Entitic vol] 83.4 fL Normal 81.0-100.0 [facility] Comment on above: Performed By: #### P ROBF, BFPR, PHBF, BFCT, GLUBF, LDBF #### [place] [address] Platelet 163 10 3/mcL Normal 150-450 [facility] Comment on above: Performed By: #### P ROBF, BFPR, PHBF, BFCT, GLUBF, LDBF #### [place] [address] Platelet mean volume (Bld) [Entitic vol] 8.4 fL Normal 6.4-10.5 [facility] Comment on above: Performed By: #### P ROBF, BFPR, PHBF, BFCT, GLUBF, LDBF #### [place] [address] RBC 3.29 10 6/mcL Low 4.50-6.00 [facility] Comment on above: Performed By: #### P ROBF, BFPR, PHBF, BFCT, GLUBF, LDBF #### [place] [address] WBC 8.8 10 3/mcL Normal 4.5-10.8 [facility] Comment on above: Performed By: #### P ROBF, BFPR, PHBF, BFCT, GLUBF, LDBF #### [place] [address] CMPon 04-17-2025 Albumin Level 2.7 G/dL Low 3.2-4.8 [facility] Comment on above: Order Comment: vrb- called critical CO2 to RN Mando Man 04/17/2025 06:09:20 EDT [facility] Performed By: #### P ROBF, BFPR, PHBF, BFCT, GLUBF, LDBF #### [address] [address] Albumin/Globulin [Mass ratio] 0.8 {ratio} Low 0.9-1.6 [facility] Comment on above: Order Comment: vrb- called critical CO2 to RN Mando Man 04/17/2025 06:09:20 EDT [facility] Performed By: #### P ROBF, BFPR, PHBF, BFCT, GLUBF, LDBF #### [address] [address] ALP [Catalytic activity/Vol] 65 U/L Normal 38-126 [facility] Comment on above: Order Comment: vrb- called critical CO2 to RN Mando Man 04/17/2025 06:09:20 EDT [facility] Performed By: #### P ROBF, BFPR, PHBF, BFCT, GLUBF, LDBF #### [address] [address] ALT [Catalytic activity/Vol] 21 U/L Normal 12-55 [facility] Comment on above: Order Comment: vrb- called critical CO2 to RN Mando Man 04/17/2025 06:09:20 EDT [facility] Performed By: #### P ROBF, BFPR, PHBF, BFCT, GLUBF, LDBF #### [address] [address] AST [Catalytic activity/Vol] 16 U/L Normal 8-34 [facility] Comment on above: Order Comment: vrb- called critical CO2 to RN Mando Man 04/17/2025 06:09:20 EDT [facility] Performed By: #### P ROBF, BFPR, PHBF, BFCT, GLUBF, LDBF #### [address] [address] Bili Total 0.40 mg/dL Normal 0.20-1.20 [facility] Comment on above: Order Comment: vrb- called critical CO2 to RN Mando Man 04/17/2025 06:09:20 EDT [facility] Result Comment: Use of this assay is not recommended for patients undergoing treatment with eltrombopag due to the potential for falsely elevated results. Performed By: #### P ROBF, BFPR, PHBF, BFCT, GLUBF, LDBF #### [address] [address] BUN/Creatinine Ratio 25.3 ratio High 10.0-22.0 [facility] Comment on above: Order Comment: vrb- called critical CO2 to RN Mando Man 04/17/2025 06:09:20 EDT SAS Performed By: #### P ROBF, BFPR, PHBF, BFCT, GLUBF, LDBF #### [address] [address] Calcium [Mass/Vol] 9.4 mg/dL Normal 8.7-10.4 [facility] Comment on above: Order Comment: vrb- called critical CO2 to RN Mando aMn 04/17/2025 06:09:20 EDT SAS Performed By: #### P ROBF, BFPR, PHBF, BFCT, GLUBF, LDBF #### [address] [address] Chloride [Moles/Vol] 88 mmol/L Low 98-110 [facility] Comment on above: Order Comment: vrb- called critical CO2 to RN Mando Man 04/17/2025 06:09:20 EDT SAS Performed By: #### P ROBF, BFPR, PHBF, BFCT, GLUBF, LDBF #### [address] [address] Creatinine [Mass/Vol] 1.62 mg/dL High 0.60-1.40 [facility] Comment on above: Order Comment: vrb- called critical CO2 to RN Mando Man 04/17/2025 06:09:20 EDT SAS Result Comment: Test ing performed on [employer] analyzer using enzymatic creatinine methodology. Performed By: #### P ROBF, BFPR, PHBF, BFCT, GLUBF, LDBF #### [address] [address] Globulin 3.5 G/dL Normal 2.5-4.2 [facility] Comment on above: Order Comment: vrb- called critical CO2 to RN Mando Man 04/17/2025 06:09:20 EDT SAS Performed By: #### P ROBF, BFPR, PHBF, BFCT, GLUBF, LDBF #### [address] [address] Glucose [Mass/Vol] 174 mg/dL High 82-115 [facility] Comment on above: Order Comment: vrb- called critical CO2 to RN Mando Man 04/17/2025 06:09:20 EDT SAS Performed By: #### P ROBF, BFPR, PHBF, BFCT, GLUBF, LDBF #### [address] [address] Potassium [Moles/Vol] 3.7 mmol/L Normal 3.5-5.0 [facility] Comment on above: Order Comment: vrb- called critical CO2 to RN Mando Man 04/17/2025 06:09:20 EDT SAS Performed By: #### P ROBF, BFPR, PHBF, BFCT, GLUBF, LDBF #### [address] [address] Sodium [Moles/Vol] 137 mmol/L Normal 136-145 [facility] Comment on above: Order Comment: vrb- called critical CO2 to RN Mando Man 04/17/2025 06:09:20 EDT SAS Performed By: #### P ROBF, BFPR, PHBF, BFCT, GLUBF, LDBF #### [address] [address] Total Protein 6.2 G/dL Normal 5.7-8.2 [facility] Comment on above: Order Comment: vrb- called critical CO2 to RN Mando Man 04/17/2025 06:09:20 EDT SAS Performed By: #### P ROBF, BFPR, PHBF, BFCT, GLUBF, LDBF #### [address] [address] Urea nitrogen [Mass/Vol] 41.0 mg/dL High 8.0-22.0 [facility] Comment on above: Order Comment: vrb- called critical CO2 to RN Mando Man 04/17/2025 06:09:20 EDT SAS Performed By: #### P ROBF, BFPR, PHBF, BFCT, GLUBF, LDBF #### [address] [address] CO2 [Moles/Vol] mmol/L Critically abnormal 22-32 [facility] Comment on above: Order Comment: vrb- called critical CO2 to RN Mando Man 04/17/2025 06:09:20 EDT SAS Performed By: #### P ROBF, BFPR, PHBF, BFCT, GLUBF, LDBF #### [address] [address] Electrolyte Balance See Comment Normal 4.0-15.0 [facility] Comment on above: Order Comment: vrb- called critical CO2 to RN Mando Man 04/17/2025 06:09:20 EDT [facility] Result Comment: Unab le to calculate this test result accurately. Results used to calculate this test are outside the reportable range. Performed By: #### P ROBF, BFPR, PHBF, BFCT, GLUBF, LDBF #### [address] [address] FT4on 04-17-2025 Free T4 [Mass/Vol] 0.88 ng/dL Low 0.89-1.76 [facility] Comment on above: Order Comment: Order ed by Discern Result Comment: No te - New Reference Range in effect 20 Performed By: #### P ROBF, BFPR, PHBF, BFCT, GLUBF, LDBF #### [address] [address] LABORATORYOrdered By: SYSTEM SYSTEM on 04-17-2025 aPTT Coag (Bld) [Time] 73.1 s High 25.0 - 35.0 seconds [facility] Comment on above: Interpretive Data: F or Heparin anticoagulation therapy, the recommended therapeutic range is: 54-77 seconds (APTT Correlation with Anti-Xa therapeutic range of 0.3-0.7 units/ml). PLEASE REFERENCE THE PHARMACY PROTOCOL FOR DOSING. Albumin BCP dye [Mass/Vol] 2.7 G/dL Low 3.2 - 4.8 G/dL [facility] Albumin/Globulin [Mass ratio] 0.8 {ratio} Low 0.9 - 1.6 ratio [facility] ALP [Catalytic activity/Vol] 65 U/L Normal 38 - 126 U/L [facility] ALT No additional P-5'-P [Catalytic activity/Vol] 21 U/L Normal 12 - 55 U/L [facility] aPTT Coag (Bld) [Time] 68.5 s High 25.0 - 35.0 seconds [facility] Comment on above: Interpretive Data: F or Heparin anticoagulation therapy, the recommended therapeutic range is: 54-77 seconds (APTT Correlation with Anti-Xa therapeutic range of 0.3-0.7 units/ml). PLEASE REFERENCE THE PHARMACY PROTOCOL FOR DOSING. AST [Catalytic activity/Vol] 16 U/L Normal 8 - 34 U/L [facility] Basophils (Bld) [#/Vol] 0.0 103/mcL Normal 0.0 - 0.3 10^3/mcL [facility] Basophils/100 WBC (Bld) 0.6 % Normal 0.0 - 2.5 % [facility] Bilirubin [Mass/Vol] 0.40 mg/dL Normal 0.20 - 1.20 mg/dL [facility] Comment on above: Interpretive Data: U se of this assay is not recommended for patients undergoing treatment with eltrombopag due to the potential for falsely elevated results. Calcium [Mass/Vol] 9.4 mg/dL Normal 8.7 - 10. 4 mg/dL [facility] Chloride [Moles/Vol] 88 mmol/L Low 98 - 11 0 mEq/L [facility] Creatinine [Mass/Vol] 1.62 mg/dL High 0.60 - 1.40 mg/dL [facility] Comment on above: Interpretive Data: T esting performed on [employer] analyzer using enzymatic creatinine methodology. Eosinophils (Bld) [...] 174 mg/dL High 82 - 115 mg/dL ADM SS Hematocrit (Bld) [Volume fraction] 27.4 % Low 40.0 - 52.0 % Workflow SS Hemoglobin (Bld) [Mass/Vol] 9.0 G/dL Low 13.0 - 17.5 G/dL Workflow SS Lymphocytes (Bld) [#/Vol] 0.5 103/mcL Low 0.9 - 4.3 10^3/mcL Workflow SS Lymphocytes/100 WBC (Bld) 5.5 % Low 20.0 - 40.0 % Workflow SS Magnesium [Mass/Vol] 1.8 mg/dL Normal 1.6 - 2 .4 mg/dL ADM SS MCH (RBC) [Entitic mass] 27.3 pg Normal 27. 0 - 33.0 pg Workflow SS MCHC 32.7 G/dL Normal 32.0 - 36.0 G/dL Workflow SS MCV (RBC) [Entitic vol] 83.4 fL Normal 81.0 - 100.0 fL Workflow SS Monocytes (Bld) [#/Vol] 0.8 103/mcL Normal 0.1 - 1.4 10^3/mcL Workflow SS Monocytes/100 WBC (Bld) 9.6 % [...] 163 103/mcL Normal 150 - 450 10^3/mcL AH Workflow SS Potassium [Moles/Vol] 3.7 mmol/L Normal 3.5 - 5.0 mEq/L ADM SS Protein [Mass/Vol] 6.2 G/dL Normal 5.7 - 8.2 G/dL ADM SS RBC (Bld) [#/Vol] 3.29 106/mcL Low 4.50 - 6.00 10^6/mcL AH Workflow SS Sodium [Moles/Vol] 137 mmol/L Normal 136 - 145 mEq/L ADM SS TSH Qn 4.806 mIU/mL High 0.550 - 4.780 mIU/mL AH ADM SS Urea nitrogen [Mass/Vol] 41.0 mg/dL High 8.0 - 22.0 mg/dL ADM SS Urea nitrogen/Creatinine [Mass ratio] 25.3 ratio High 10.0 - 22.0 ratio AH ADM SS WBC (Bld) [#/Vol] 8.8 103/mcL Normal 4.5 - 10.8 10^3/mcL Workflow SS LABORATORYOrdered By: [place] Sanchez on 04-17-2025 Blood Glucose Testing Reason Routine (04/17/25 11:08 AM) [facility] Work Phone: Glucose [Mass/Vol] 276 mg/dL High 82 - 115 mg/dL [facility] Work Phone: Blood Glucose Testing Reason Routine (04/17/25 7:57 AM) [facility] Work Phone: Glucose [Mass/Vol] 171 mg/dL High 82 - 115 mg/dL [facility] Work Phone: LABORATORYOrdered By: Lisa Ministerio on 04-17-2025 CO2 [Moles/Vol] mEq/L Invalid Interpretation Code 22 - 32 mEq/L Chemistry S Electrolyte Balance See Comment Invalid Interpretation Code 4.0 - 15.0 Chemistry S Comment on above: Result Comment: Unab le to calculate this test result accurately. Results used to calculate this test are outside the reportable range. MGon 04-17-2025 Magnesium [Mass/Vol] 1.8 mg/dL Normal 1.6-2.4 [facility] Comment on above: Performed By: #### P ROBF, BFPR, PHBF, BFCT, GLUBF, LDBF #### [place] [address] Non-L Tacker Cytology Reporton Non-L Tacker Cytology Report . Pathology Reports Accession: Collected Date/Time: Received Date/Time: Pathologist: [id number] 04/15/2025 10:30 EDT 04/16/2025 08:56 EDT MÓNICA VIEIRA MD Non-L Tacker Cytology Report CLINICAL INFORMATION: Pleural effusion DIAGNOSTIC CATEGORY: NEGATIVE FOR MALIGNANCY. SPECIMEN: Right pleural fluid GROSS DESCRIPTION: # of Blocks: 1 # of Monolayers: 1 Volume (ml) 950 Color: fresh cloudy red/orange fluid Verified by Pathology Report verified by [facility] Screened by: ANMOL GARCIA Electronically signed by MÓNICA VIEIRA Sign-Out Date: 04/17/2025 14:51 Performing Lab: [facility], [address] [place] [address] Pathology Dept Disclaimer If ancillary studies were utilized, the following Laboratory Developed Test (LDT) disclaimer will apply: Under CLIA requirements, [facility] Laboratory is qualified to perform high complexity testing. For all ancillary stains, positive and negative controls stain appropriately. Performance characteristics of immunohistochemical and chromogenic in-situ hybridization tests have been determined by [facility]. These tests are used for clinical purposes, They should not be regarded as investigational or for research. Normal [facility] TSHRon 04-17-2025 TSH 4.806 mIU/mL High 0.550-4.78 0 [facility] Comment on above: Performed By: #### P ROBF, BFPR, PHBF, BFCT, GLUBF, LDBF #### [address] [address] XR CHEST 1 VIEWon 04-17-2025 XR CHEST 1 VIEW ORIGINAL EXAMINATION: ONE [...] Date: 04/17/2025 8:12:37 AM Ordering Provider: GLORIA Francois [facility] .Auto Diffon 04-16-2025 Basophil, Absolute 0.0 10 3/mcL Normal 0.0-0.3 [facility] Comment on above: Performed By: #### P ROBF, BFPR, PHBF, BFCT, GLUBF, LDBF #### [address] [address] Basophils/100 WBC (Bld) 0.1 % Normal 0.0-2.5 [facility] Comment on above: Performed By: #### P ROBF, BFPR, PHBF, BFCT, GLUBF, LDBF #### [address] [address] Eosinophil, Absolute 0.5 10 3/mcL Normal 0.0-0.7 [facility] Comment on above: Performed By: #### P ROBF, BFPR, PHBF, BFCT, GLUBF, LDBF #### [address] [address] Eosinophils/100 WBC (Bld) 5.3 % Normal 0.0-6.0 [facility] Comment on above: Performed By: #### P ROBF, BFPR, PHBF, BFCT, GLUBF, LDBF #### [address] [address] Lymphocyte, Absolute 0.4 10 3/mcL Low 0.9-4.3 [facility] Comment on above: Performed By: #### P ROBF, BFPR, PHBF, BFCT, GLUBF, LDBF #### [address] [address] Lymphocytes/100 WBC (Bld) 4.8 % Low 20.0-40.0 [facility] Comment on above: Performed By: #### P ROBF, BFPR, PHBF, BFCT, GLUBF, LDBF #### [address] [address] Monocyte, Absolute 0.7 10 3/mcL Normal 0.1-1.4 [facility] Comment on above: Performed By: #### P ROBF, BFPR, PHBF, BFCT, GLUBF, LDBF #### [address] [address] Monocytes/100 WBC (Bld) 8.3 % Normal 2.0-13.0 [facility] Comment on above: Performed By: #### P ROBF, BFPR, PHBF, BFCT, GLUBF, LDBF #### [address] [address] Neutrophils/100 WBC (Bld) 81.5 % High 50.0-75.0 [facility] Comment on above: Performed By: #### P ROBF, BFPR, PHBF, BFCT, GLUBF, LDBF #### [address] [address] .GFRon 04-16-2025 Estimated Glomerular Filtration Rate 48 ml/min/1.73sqm Normal [facility] Comment on above: Result Comment: Stages [...] calculate the eGFR results. Performed By: #### P ROBF, BFPR, PHBF, BFCT, GLUBF, LDBF #### [place] [address] .NEUABSon 04-16-2025 Neutrophil, Absolute 7.3 10 3/mcL Normal 2.3-8.1 [facility] Comment on above: Performed By: #### P ROBF, BFPR, PHBF, BFCT, GLUBF, LDBF #### [place] [address] APTTon 04-16-2025 aPTT Coag (Bld) [Time] 63.1 s High 25.0-35.0 [facility] Comment on above: Result Comment: For Heparin anticoagulation therapy, the recommended therapeutic range is: 54-77 seconds (APTT Correlation with Anti-Xa therapeutic range of 0.3-0.7 units/ml). PLEASE REFERENCE THE PHARMACY PROTOCOL FOR DOSING. Performed By: #### P ROBF, BFPR, PHBF, BFCT, GLUBF, LDBF #### [place] [address] aPTT Coag (Bld) [Time] 55.6 s High 25.0-35.0 [facility] Comment on above: Result Comment: For Heparin anticoagulation therapy, the recommended therapeutic range is: 54-77 seconds (APTT Correlation with Anti-Xa therapeutic range of 0.3-0.7 units/ml). PLEASE REFERENCE THE PHARMACY PROTOCOL FOR DOSING. Performed By: #### A PTT #### [place] [address] CBCon 04-16-2025 Erythrocyte distribution width (RBC) [Ratio] 18.8 % High 11.5-15.5 [facility] Comment on above: Performed By: #### P ROBF, BFPR, PHBF, BFCT, GLUBF, LDBF #### [place] [address] Hematocrit (Bld) [Volume fraction] 27.9 % Low 40.0-52.0 [facility] Comment on above: Performed By: #### P ROBF, BFPR, PHBF, BFCT, GLUBF, LDBF #### [place] [id number] Hgb 9.1 G/dL Low 13.0-17.5 [facility] Comment on above: Performed By: #### P ROBF, BFPR, PHBF, BFCT, GLUBF, LDBF #### [place] [address] MCH (RBC) [Entitic mass] 27.8 pg Normal 27.0-33.0 [facility] Comment on above: Performed By: #### P ROBF, BFPR, PHBF, BFCT, GLUBF, LDBF #### [place] [address] MCHC 32.8 G/dL Normal 32.0-36.0 [facility] Comment on above: Performed By: #### P ROBF, BFPR, PHBF, BFCT, GLUBF, LDBF #### [place] [address] MCV (RBC) [Entitic vol] 84.7 fL Normal 81.0-100.0 [facility] Comment on above: Performed By: #### P ROBF, BFPR, PHBF, BFCT, GLUBF, LDBF #### [place] [address] Platelet 158 10 3/mcL Normal 150-450 [facility] Comment on above: Performed By: #### P ROBF, BFPR, PHBF, BFCT, GLUBF, LDBF #### [place] [address] Platelet mean volume (Bld) [Entitic vol] 8.7 fL Normal 6.4-10.5 [facility] Comment on above: Performed By: #### P ROBF, BFPR, PHBF, BFCT, GLUBF, LDBF #### [place] [address] RBC 3.29 10 6/mcL Low 4.50-6.00 [facility] Comment on above: Performed By: #### P ROBF, BFPR, PHBF, BFCT, GLUBF, LDBF #### [place] [id number] WBC 9.0 10 3/mcL Normal 4.5-10.8 [facility] Comment on above: Performed By: #### P ROBF, BFPR, PHBF, BFCT, GLUBF, LDBF #### [place] [address] CMPon 04-16-2025 Albumin Level 2.6 G/dL Low 3.2-4.8 [facility] Comment on above: Performed By: #### P ROBF, BFPR, PHBF, BFCT, GLUBF, LDBF #### [place] [address] Albumin/Globulin [Mass ratio] 0.8 {ratio} Low 0.9-1.6 [facility] Comment on above: Performed By: #### P ROBF, BFPR, PHBF, BFCT, GLUBF, LDBF #### [place] [address] ALP [Catalytic activity/Vol] 59 U/L Normal 38-126 [facility] Comment on above: Performed By: #### P ROBF, BFPR, PHBF, BFCT, GLUBF, LDBF #### [place] [address] ALT [Catalytic activity/Vol] 23 U/L Normal 12-55 [facility] Comment on above: Performed By: #### P ROBF, BFPR, PHBF, BFCT, GLUBF, LDBF #### [place] [address] AST [Catalytic activity/Vol] 17 U/L Normal 8-34 [facility] Comment on above: Performed By: #### P ROBF, BFPR, PHBF, BFCT, GLUBF, LDBF #### [address] [address] Bili Total 0.50 mg/dL Normal 0.20-1.20 [facility] Comment on above: Result Comment: Use of this assay is not recommended for patients undergoing treatment with eltrombopag due to the potential for falsely elevated results. Performed By: #### P ROBF, BFPR, PHBF, BFCT, GLUBF, LDBF #### [address] [address] BUN/Creatinine Ratio 22.6 ratio High 10.0-22.0 [facility] Comment on above: Performed By: #### P ROBF, BFPR, PHBF, BFCT, GLUBF, LDBF #### [address] [address] Calcium [Mass/Vol] 9.2 mg/dL Normal 8.7-10.4 [facility] Comment on above: Performed By: #### P ROBF, BFPR, PHBF, BFCT, GLUBF, LDBF #### [address] [address] Chloride [Moles/Vol] 91 mmol/L Low 98-110 [facility] Comment on above: Performed By: #### P ROBF, BFPR, PHBF, BFCT, GLUBF, LDBF #### [address] [address] CO2 [Moles/Vol] 38 mmol/L High 22-32 [facility] Comment on above: Performed By: #### P ROBF, BFPR, PHBF, BFCT, GLUBF, LDBF #### [address] [address] Creatinine [Mass/Vol] 1.46 mg/dL High 0.60-1.40 [facility] Comment on above: Result Comment: Test ing performed on [employer] analyzer using enzymatic creatinine methodology. Performed By: #### P ROBF, BFPR, PHBF, BFCT, GLUBF, LDBF #### [address] [address] Electrolyte Balance 9.0 mEq/L Normal 4.0-15.[address] [facility] Comment on above: Performed By: #### P ROBF, BFPR, PHBF, BFCT, GLUBF, LDBF #### [place] [id number] Globulin 3.2 G/dL Normal 2.5-4.2 [facility] Comment on above: Performed By: #### P ROBF, BFPR, PHBF, BFCT, GLUBF, LDBF #### [place] [address] Glucose [Mass/Vol] 144 mg/dL High 82-115 [facility] Comment on above: Performed By: #### P ROBF, BFPR, PHBF, BFCT, GLUBF, LDBF #### [place] [address] Potassium [Moles/Vol] 3.7 mmol/L Normal 3.5-5.0 [facility] Comment on above: Performed By: #### P ROBF, BFPR, PHBF, BFCT, GLUBF, LDBF #### [place] [address] Sodium [Moles/Vol] 138 mmol/L Normal 136-145 [facility] Comment on above: Performed By: #### P ROBF, BFPR, PHBF, BFCT, GLUBF, LDBF #### [place] [address] Total Protein 5.8 G/dL Normal 5.7-8.2 [facility] Comment on above: Performed By: #### P ROBF, BFPR, PHBF, BFCT, GLUBF, LDBF #### [place] [address] Urea nitrogen [Mass/Vol] 33.0 mg/dL High 8.0-22.0 [facility] Comment on above: Performed By: #### P ROBF, BFPR, PHBF, BFCT, GLUBF, LDBF #### [place] [address] LABORATORYOrdered By: Mónica Brown on 04-16-2025 Blood Glucose Testing Reason Routine (04/16/25 9:15 PM) [facility] Work Phone: Glucose [Mass/Vol] 207 mg/dL High 82 - 115 mg/dL [facility] Work Phone: LABORATORYOrdered By: SYSTEM SYSTEM on [...] 11 0 mEq/L ADM SS CO2 [Moles/Vol] 38 mmol/L High 22 - 32 mEq/L ADM SS Creatinine [Mass/Vol] 1.46 mg/dL High 0.60 - 1.40 mg/dL ADM SS Comment on above: Interpretive Data: T esting performed on Linkdex CH analyzer using enzymatic creatinine methodology. Electrolyte Balance 9.0 mEq/L Normal 4.0 - 15 .0 mEq/L ADM SS Eosinophils (Bld) [#/Vol] 0.5 103/mcL Normal 0.0 - 0.7 10^3/mcL Workflow SS Eosinophils/100 WBC (Bld) 5.3 % Normal 0.0 - 6.0 % Workflow SS Erythrocyte distribution width (RBC) [Ratio] 18.8 % High 11.5 - 15.5 % Workflow SS Estimated Glomerular Filtration Rate 48 [...] 3.2 G/dL Normal 2.5 - 4.2 G/dL ADM SS Glucose [Mass/Vol] 144 mg/dL High 82 - 115 mg/dL ADM SS Hematocrit (Bld) [Volume fraction] 27.9 % Low 40.0 - 52.0 % Workflow SS Hemoglobin (Bld) [Mass/Vol] 9.1 G/dL Low 13.0 - 17.5 G/dL Workflow SS Lymphocytes (Bld) [#/Vol] 0.4 103/mcL Low 0.9 - 4.3 10^3/mcL Workflow SS Lymphocytes/100 WBC (Bld) 4.8 % Low 20.0 - 40.0 % Workflow SS Magnesium [Mass/Vol] 1.8 mg/dL Normal 1.6 - 2 .4 mg/dL ADM SS MCH (RBC) [Entitic mass] 27.8 [...] 9.0 103/mcL Normal 4.5 - 10.8 10^3/mcL Workflow SS MGon 04-16-2025 Magnesium [Mass/Vol] 1.8 mg/dL Normal 1.6-2.4 [facility] Comment on above: Performed By: #### P ROBF, BFPR, PHBF, BFCT, GLUBF, LDBF #### [place] [address] .Auto Diffon 04-15-2025 Basophil, Absolute 0.0 10 3/mcL Normal 0.0-0.3 [facility] Comment on above: Performed By: #### P ROBF, BFPR, PHBF, BFCT, GLUBF, LDBF #### [address] [address] Basophils/100 WBC (Bld) 0.1 % Normal 0.0-2.5 [facility] Comment on above: Performed By: #### P ROBF, BFPR, PHBF, BFCT, GLUBF, LDBF #### [address] [address] Eosinophil, Absolute 0.4 10 3/mcL Normal 0.0-0.7 [facility] Comment on above: Performed By: #### P ROBF, BFPR, PHBF, BFCT, GLUBF, LDBF #### [address] [address] Eosinophils/100 WBC (Bld) 4.1 % Normal 0.0-6.0 [facility] Comment on above: Performed By: #### P ROBF, BFPR, PHBF, BFCT, GLUBF, LDBF #### [address] [address] Lymphocyte, Absolute 0.4 10 3/mcL Low 0.9-4.3 [facility] Comment on above: Performed By: #### P ROBF, BFPR, PHBF, BFCT, GLUBF, LDBF #### [address] [address] Lymphocytes/100 WBC (Bld) 4.5 % Low 20.0-40.0 [facility] Comment on above: Performed By: #### P ROBF, BFPR, PHBF, BFCT, GLUBF, LDBF #### [address] [address] Monocyte, Absolute 0.8 10 3/mcL Normal 0.1-1.4 [facility] Comment on above: Performed By: #### P ROBF, BFPR, PHBF, BFCT, GLUBF, LDBF #### [address] [address] Monocytes/100 WBC (Bld) 8.5 % Normal 2.0-13.0 [facility] Comment on above: Performed By: #### P ROBF, BFPR, PHBF, BFCT, GLUBF, LDBF #### [facility] [address] [place] [address] Neutrophils/100 WBC (Bld) 82.8 % High 50.0-75.0 [facility] Comment on above: Performed By: #### P ROBF, BFPR, PHBF, BFCT, GLUBF, LDBF #### [facility] [address] [place] [address] .GFRon 04-15-2025 Estimated Glomerular Filtration Rate 50 ml/min/1.73sqm Normal [facility] Comment on above: Result Comment: Stages [...] calculate the eGFR results. Performed By: #### P ROBF, BFPR, PHBF, BFCT, GLUBF, LDBF #### [address] [address] .NEUABSon 04-15-2025 Neutrophil, Absolute 7.8 10 3/mcL Normal 2.3-8.1 [facility] Comment on above: Performed By: #### P ROBF, BFPR, PHBF, BFCT, GLUBF, LDBF #### [address] [address] APTTon 04-15-2025 aPTT Coag (Bld) [Time] 55.0 s High 25.0-35.0 [facility] Comment on above: Result Comment: For Heparin anticoagulation therapy, the recommended therapeutic range is: 54-77 seconds (APTT Correlation with Anti-Xa therapeutic range of 0.3-0.7 units/ml). PLEASE REFERENCE THE PHARMACY PROTOCOL FOR DOSING. Performed By: #### P ROBF, BFPR, PHBF, BFCT, GLUBF, LDBF #### [address] [address] BFCTon 04-15-2025 Cells Counted BF 100 Normal [facility] Comment on above: Performed By: #### P ROBF, BFPR, PHBF, BFCT, GLUBF, LDBF #### [address] [address] Lymphocytes/100 WBC (Bld) 47 % [facility] Comment on above: Performed By: #### P ROBF, BFPR, PHBF, BFCT, GLUBF, LDBF #### [address] [address] Mesothelial Cell % BF 4 % Normal [facility] Comment on above: Performed By: #### P ROBF, BFPR, PHBF, BFCT, GLUBF, LDBF #### [address] [address] Mononuclear cell % BF 1 % Normal [facility] Comment on above: Performed By: #### P ROBF, BFPR, PHBF, BFCT, GLUBF, LDBF #### [address] [address] Neutrophils/100 WBC (Bld) 48 % Normal [facility] Comment on above: Performed By: #### P ROBF, BFPR, PHBF, BFCT, GLUBF, LDBF #### [address] [address] Total Nucleated Cells 172 /mm3 Normal [facility] Comment on above: Performed By: #### P ROBF, BFPR, PHBF, BFCT, GLUBF, LDBF #### [address] [address] Body Fluid Source Pleural fluid Normal [facility] Comment on above: Result Comment: Refe rence ranges have not been established for this body fluid. The test results must be integrated into the clinical context for interpretation. Performed By: #### P ROBF, BFPR, PHBF, BFCT, GLUBF, LDBF #### [address] [address] BMPon 04-15-2025 BUN/Creatinine Ratio 30.8 ratio High 10.0-22.0 [facility] Comment on above: Performed By: #### P ROBF, BFPR, PHBF, BFCT, GLUBF, LDBF #### [address] [address] Calcium [Mass/Vol] 8.7 mg/dL Normal 8.7-10.4 [facility] Comment on above: Performed By: #### P ROBF, BFPR, PHBF, BFCT, GLUBF, LDBF #### [place] [id number] Chloride [Moles/Vol] 94 mmol/L Low 98-110 [facility] Comment on above: Performed By: #### P ROBF, BFPR, PHBF, BFCT, GLUBF, LDBF #### [address] [address] CO2 [Moles/Vol] 39 mmol/L High 22-32 [facility] Comment on above: Performed By: #### P ROBF, BFPR, PHBF, BFCT, GLUBF, LDBF #### [address] [address] Creatinine [Mass/Vol] 1.43 mg/dL High 0.60-1.40 [facility] Comment on above: Result Comment: Test ing performed on [employer] analyzer using enzymatic creatinine methodology. Performed By: #### P ROBF, BFPR, PHBF, BFCT, GLUBF, LDBF #### [address] [address] Electrolyte Balance 7.0 mEq/L Normal 4.0-15.[address] [facility] Comment on above: Performed By: #### P ROBF, BFPR, PHBF, BFCT, GLUBF, LDBF #### [place] [id number] Glucose [Mass/Vol] 134 mg/dL High 82-115 [facility] Comment on above: Performed By: #### P ROBF, BFPR, PHBF, BFCT, GLUBF, LDBF #### [place] [id number] Potassium [Moles/Vol] 3.8 mmol/L Normal 3.5-5.0 [facility] Comment on above: Performed By: #### P ROBF, BFPR, PHBF, BFCT, GLUBF, LDBF #### [place] [id number] Sodium [Moles/Vol] 140 mmol/L Normal 136-145 [facility] Comment on above: Performed By: #### P ROBF, BFPR, PHBF, BFCT, GLUBF, LDBF #### [place] [id number] Urea nitrogen [Mass/Vol] 44.0 mg/dL High 8.0-22.0 [facility] Comment on above: Performed By: #### P ROBF, BFPR, PHBF, BFCT, GLUBF, LDBF #### [address] [address] CBCon 04-15-2025 Erythrocyte distribution width (RBC) [Ratio] 17.9 % High 11.5-15.5 [facility] Comment on above: Performed By: #### P ROBF, BFPR, PHBF, BFCT, GLUBF, LDBF #### [place] [address] Hematocrit (Bld) [Volume fraction] 26.7 % Low 40.0-52.0 [facility] Comment on above: Performed By: #### P ROBF, BFPR, PHBF, BFCT, GLUBF, LDBF #### [place] [id number] Hgb 8.6 G/dL Low 13.0-17.5 [facility] Comment on above: Performed By: #### P ROBF, BFPR, PHBF, BFCT, GLUBF, LDBF #### [address] [address] MCH (RBC) [Entitic mass] 26.9 pg Low 27.0-33.0 [facility] Comment on above: Performed By: #### P ROBF, BFPR, PHBF, BFCT, GLUBF, LDBF #### [place] [address] MCHC 32.1 G/dL Normal 32.0-36.0 [facility] Comment on above: Performed By: #### P ROBF, BFPR, PHBF, BFCT, GLUBF, LDBF #### [place] [address] MCV (RBC) [Entitic vol] 83.9 fL Normal 81.0-100.0 [facility] Comment on above: Performed By: #### P ROBF, BFPR, PHBF, BFCT, GLUBF, LDBF #### [place] [address] Platelet 169 10 3/mcL Normal 150-450 [facility] Comment on above: Performed By: #### P ROBF, BFPR, PHBF, BFCT, GLUBF, LDBF #### [place] [address] Platelet mean volume (Bld) [Entitic vol] 8.2 fL Normal 6.4-10.5 [facility] Comment on above: Performed By: #### P ROBF, BFPR, PHBF, BFCT, GLUBF, LDBF #### [place] [address] RBC 3.18 10 6/mcL Low 4.50-6.00 [facility] Comment on above: Performed By: #### P ROBF, BFPR, PHBF, BFCT, GLUBF, LDBF #### [place] [address] WBC 9.4 10 3/mcL Normal 4.5-10.8 [facility] Comment on above: Performed By: #### P ROBF, BFPR, PHBF, BFCT, GLUBF, LDBF #### [place] [address] GLUBFon 04-15-2025 Glucose Body Fluid Spec Type Pleural fluid Normal [facility] Comment on above: Result Comment: The reference interval(s) and other method performance specifications have not been established for this body fluid. The test result must be integrated into the clinical content for interpretation. Performed By: #### P ROBF, BFPR, PHBF, BFCT, GLUBF, LDBF #### [place] [address] Glucose BF 191.0 mg/dL Normal [facility] Comment on above: Performed By: #### P ROBF, BFPR, PHBF, BFCT, GLUBF, LDBF #### [place] [address] HFPon 04-15-2025 Bili Indirect 0.2 mg/dL Normal 0.1-10.0 [facility] Comment on above: Performed By: #### T MADHAVI #### [place] [id number] Albumin Level 2.9 G/dL Low 3.2-4.8 [facility] Comment on above: Performed By: #### T MADHAVI #### [place] [id number] Albumin/Globulin [Mass ratio] 0.8 {ratio} Low 0.9-1.6 [facility] Comment on above: Performed By: #### T MADHAVI #### [place] [id number] ALP [Catalytic activity/Vol] 65 U/L Normal 38-126 [facility] Comment on above: Performed By: #### T MADHAVI #### [place] [id number] ALT [Catalytic activity/Vol] 29 U/L Normal 12-55 [facility] Comment on above: Performed By: #### T MADHAVI #### [place] [id number] AST [Catalytic activity/Vol] 23 U/L Normal 8-34 [facility] Comment on above: Performed By: #### T MADHAVI #### [place] [id number] Bili Direct 0.2 mg/dL Normal 0.0-0.4 [facility] Comment on above: Result Comment: Use of this assay is not recommended for patients undergoing treatment with eltrombopag due to the potential for falsely elevated results. Performed By: #### T MADHAVI #### [place] [id number] Bili Total 0.40 mg/dL Normal 0.20-1.20 [facility] Comment on above: Result Comment: Use of this assay is not recommended for patients undergoing treatment with eltrombopag due to the potential for falsely elevated results. Performed By: #### T MADHAVI #### [place] [id number] Globulin 3.6 G/dL Normal 2.5-4.2 [facility] Comment on above: Performed By: #### T MADHAVI #### [place] [id number] Total Protein 6.5 G/dL Normal 5.7-8.2 [facility] Comment on above: Performed By: #### T MADHAVI #### [place] [id number] LABORATORYOrdered By: SYSTEM SYSTEM on 04-15-2025 Albumin BCP dye [Mass/Vol] 2.9 G/dL Low 3.2 - 4.8 G/dL ADM SS Albumin/Globulin [Mass ratio] 0.8 {ratio} Low 0.9 - 1.6 ratio ADM SS ALP [Catalytic activity/Vol] 65 U/L Normal 38 - 126 U/L ADM SS ALT No additional P-5'-P [Catalytic activity/Vol] 29 U/L Normal 12 - 55 U/L ADM SS AST [Catalytic activity/Vol] 23 U/L [...] fld) [Mass/Vol] 191.0 mg/dL Invalid Interpretation Code ADM SS LDH (Body fld) [Catalytic activity/Vol] [...] above: Interpretive Data: T esting performed on ShopEx analyzer using enzymatic creatinine methodology. Electrolyte Balance 7.0 mEq/L Normal 4.0 - 15 .0 mEq/L ADM SS Eosinophils (Bld) [#/Vol] 0.4 103/mcL Normal [...] 134 mg/dL High 82 - 115 mg/dL ADM SS Hematocrit (Bld) [Volume fraction] 26.7 % Low 40.0 - 52.0 % Workflow SS Hemoglobin (Bld) [Mass/Vol] 8.6 G/dL Low 13.0 - 17.5 G/dL Workflow SS Lymphocytes (Bld) [#/Vol] 0.4 103/mcL Low 0.9 - 4.3 10^3/mcL Workflow SS Lymphocytes/100 WBC (Bld) 4.5 % Low 20.0 - 40.0 % Workflow SS Magnesium [Mass/Vol] 1.8 mg/dL Normal 1.6 - 2 .4 mg/dL ADM SS MCH (RBC) [Entitic mass] 26.9 pg Low 27. 0 - 33.0 pg AH Workflow SS MCHC 32.1 G/dL Normal 32.0 - 36.0 G/dL Workflow SS MCV (RBC) [Entitic vol] 83.9 fL Normal 81.0 - 100.0 fL Workflow SS Monocytes (Bld) [#/Vol] 0.8 103/mcL Normal 0.1 - 1.4 10^3/mcL Workflow SS Monocytes/100 WBC (Bld) 8.5 % Normal 2.0 - 13.0 % Workflow SS Natriuretic peptide.B prohormone N-Terminal IA [Mass/Vol] 4360 pg/mL High 0 - 1800 pg/mL ADM SS Neutrophils (Bld) [#/Vol] 7.8 103/mcL Normal 2.3 - 8.1 10^3/mcL Workflow SS Neutrophils/100 WBC (Bld) 82.8 % High 50.0 - 75.0 % Workflow SS Platelet mean volume (Bld) [Entitic vol] 8.2 fL Normal 6.4 - 10.5 fL Workflow SS Platelets (Bld) [#/Vol] 169 103/mcL Normal 150 - 450 10^3/mcL Workflow SS Potassium [Moles/Vol] 3.8 mmol/L Normal 3.5 - 5.0 mEq/L ADM SS RBC (Bld) [#/Vol] 3.18 106/mcL Low 4.50 - 6.00 10^6/mcL Workflow SS Sodium [Moles/Vol] 140 mmol/L Normal 136 - 145 mEq/L ADM SS Urea nitrogen [Mass/Vol] 44.0 mg/dL High 8.0 - 22.0 mg/dL ADM SS Urea nitrogen/Creatinine [Mass ratio] 30.8 ratio High 10.0 - 22.0 ratio ADM SS WBC (Bld) [#/Vol] 9.4 103/mcL Normal 4.5 - 10.8 10^3/mcL Workflow SS LABORATORYOrdered By: Chun Hancock on 04-15-2025 Cells Counted Total (Unsp spec) [#] 100 1 Invalid Interpretation Code Manual Heme SS Lymphocytes/100 WBC (Body fld) 47 % Invalid Interpretation Code Manual Heme SS Mesothelial Cell % BF 4 % Invalid Interpretation Code Manual Heme SS Monocytes+Macrophages/10 0 WBC (Body fld) 1 % Invalid Interpretation Code Manual Heme SS Neutrophils/100 WBC (Body fld) 48 % Invalid Interpretation Code Manual Heme SS Nucleated RBC/100 WBC (Bld) [Ratio] 172 % Invalid Interpretation Code Manual Heme SS LABORATORYOrdered By: Laya Mandel on 04-15-2025 Glucose Body Fluid Spec Type Pleural fluid 29 (04/15/25 10:30 AM) Normal Chemistry S Comment on above: Interpretive Data: T he reference interval(s) and other method performance specifications have not been established for this body fluid. The test result must be integrated into the clinical content for interpretation. LDH Body Fluid Spec Type Pleural fluid 3 0 (04/15/25 10:30 AM) Normal Chemistry S Comment on above: Interpretive Data: T he reference interval(s) and other method performance specifications have not been established for this body fluid. The test result must be integrated into the clinical content for interpretation. . Protein BF Type Pleural fluid 25 (04/15/25 10:30 AM) Normal Chemistry S Comment on above: Interpretive Data: [...] Body Fluid Spec Type Pleural fluid Normal [facility] Comment on above: Result Comment: The reference interval(s) and other method performance specifications have not been established for this body fluid. The test result must be integrated into the clinical content for interpretation. . Performed By: #### P ROBF, BFPR, PHBF, BFCT, GLUBF, LDBF #### [address] [address] LDH BF 137.0 U/L Normal [facility] Comment on above: Performed By: #### P ROBF, BFPR, PHBF, BFCT, GLUBF, LDBF #### [facility] [address] [place] [address] LDHon 04-15-2025 LDH 216 U/L Normal 120-246 [facility] Comment on above: Performed By: #### T PAUL #### [facility] [address] [place] [id number] MGon 04-15-2025 Magnesium [Mass/Vol] 1.8 mg/dL Normal 1.6-2.4 [facility] Comment on above: Performed By: #### P ROBF, BFPR, PHBF, BFCT, GLUBF, LDBF #### [place] [address] No Panel Informationon 04-15 AFS Acid Fast Smear from Concentrated Specimen: Negative [facility] Work Phone: Culture Body Fluid Culture has been rec eived in lab and is no growth to date. Routine cultures are held for 5 days. [facility] Work Phone: FUNSM No fungal elements observed by calcofluor white stain. [facility] Work Phone: GS Sedimented 1+ Polymorphonuclear cells 1+ Mononuclear cells No organisms seen. [facility] Work Phone: Non-L Tacker Cytology Reporton Non-L Tacker Cytology Report Event Display: N G Specimen Right pleural fluid MÓNICA VIEIRA MD:VERIFY; Authored Date: [facility] Work Phone: Non-L Tacker Cytology Report Event Display: N G Signature Pathology Report verified by [facility] Screened by: ANMOL GARCIA Electronically signed by MÓNICA VIEIRA Sign-Out Date: 04/17/2025 14:51 Performing Lab: [facility], [address] [place] [address] Pathology Dept MÓNICA VIEIRA MD:VERIFY; Authored Date: [facility] Work Phone: Non-L Tacker Cytology Report Event Display: N G Clin Info Pleural effusion MÓNICA VIEIRA MD:VERIFY; Authored Date: [facility] Work Phone: Non-L Tacker Cytology Report Event Display: N G Diagnostic Category Interp NEGATIVE FOR MALIGNANCY. MÓNICA VIEIRA MD:VERIFY; Authored Date: [facility] Work Phone: Non-L Tacker Cytology Report Event Display: N G Gross # of Blocks: 1 # of Monolayers: 1 Volume (ml) 950 Color: fresh cloudy red/orange fluid MÓNICA VIEIRA MD:VERIFY; Authored Date: [id number] [facility] Work Phone: Non-L Tacker Cytology Report Event Display: N G Disclaimer If ancillary studies were utilized, the following Laboratory Developed Test (LDT) disclaimer will apply: Under CLIA requirements, [facility] Laboratory is qualified to perform high complexity testing. For all ancillary stains, positive and negative controls stain appropriately. Performance characteristics of immunohistochemical and chromogenic in-situ hybridization tests have been determined by [facility]. These tests are used for clinical purposes, They should not be regarded as investigational or for research. MÓNICA VIEIRA MD:VERIFY; Authored Date: [id number] [facility] Work Phone: PBNPon 04-15-2025 Natriuretic peptide B (Bld) [Mass/Vol] 4360 pg/mL High 0-1800 [facility] Comment on above: Performed By: #### P ROBF, BFPR, PHBF, BFCT, GLUBF, LDBF #### [place] [address] PHBFon 04-15-2025 pH BF 7.4 Normal [facility] Comment on above: Result Comment: domingo becerril Performed By: #### P ROBF, BFPR, PHBF, BFCT, GLUBF, LDBF #### [place] [address] pH BF Spec Type Pleural fluid Normal [facility] Comment on above: Result Comment: The reference interval(s) and other method performance specifications have not been established for this body fluid. The test result must be integrated into the clinical content for interpretation. Performed By: #### P ROBF, BFPR, PHBF, BFCT, GLUBF, LDBF #### [place] [address] PROBFon 04-15-2025 Protein BF Type Pleural fluid Normal [facility] Comment on above: Result Comment: The reference interval(s) and other method performance specifications have not been established for this body fluid. The test result must be integrated into the clinical content for interpretation. Performed By: #### P ROBF, BFPR, PHBF, BFCT, GLUBF, LDBF #### [address] [address] Protein BF <2.0 [facility] Comment on above: Performed By: #### P ROBF, BFPR, PHBF, BFCT, GLUBF, LDBF #### [address] [address] XR CHEST 1 VIEWon 04-15-2025 XR CHEST [...] 04/15/2025 11:43:46 AM Ordering Provider: OLAMIDE GONZALEZ [facility] XR CHEST 1 VIEW ORIGINAL EXAMINATION: [...] Date: 04/15/2025 7:22:03 AM Ordering Provider: GLORIA Francois [facility] .Auto Diffon 04-14-2025 Basophil, Absolute 0.0 10 3/mcL Normal 0.0-0.3 [facility] Comment on above: Performed By: #### P ROBF, BFPR, PHBF, BFCT, GLUBF, LDBF #### [address] [address] Basophils/100 WBC (Bld) 0.2 % Normal 0.0-2.5 [facility] Comment on above: Performed By: #### P ROBF, BFPR, PHBF, BFCT, GLUBF, LDBF #### [address] [address] Eosinophil, Absolute 0.2 10 3/mcL Normal 0.0-0.7 [facility] Comment on above: Performed By: #### P ROBF, BFPR, PHBF, BFCT, GLUBF, LDBF #### [address] [address] Eosinophils/100 WBC (Bld) 1.9 % Normal 0.0-6.0 [facility] Comment on above: Performed By: #### P ROBF, BFPR, PHBF, BFCT, GLUBF, LDBF #### [address] [address] Lymphocyte, Absolute 0.4 10 3/mcL Low 0.9-4.3 [facility] Comment on above: Performed By: #### P ROBF, BFPR, PHBF, BFCT, GLUBF, LDBF #### [address] [address] Lymphocytes/100 WBC (Bld) 4.0 % Low 20.0-40.0 [facility] Comment on above: Performed By: #### P ROBF, BFPR, PHBF, BFCT, GLUBF, LDBF #### [address] [address] Monocyte, Absolute 0.9 10 3/mcL Normal 0.1-1.4 [facility] Comment on above: Performed By: #### P ROBF, BFPR, PHBF, BFCT, GLUBF, LDBF #### [address] [address] Monocytes/100 WBC (Bld) 8.3 % Normal 2.0-13.0 [facility] Comment on above: Performed By: #### P ROBF, BFPR, PHBF, BFCT, GLUBF, LDBF #### [address] [address] Neutrophils/100 WBC (Bld) 85.6 % High 50.0-75.0 [facility] Comment on above: Performed By: #### P ROBF, BFPR, PHBF, BFCT, GLUBF, LDBF #### [address] [address] .GFRon 04-14-2025 Estimated Glomerular Filtration Rate 49 ml/min/1.73sqm Normal [facility] Comment on above: Result Comment: Stages [...] calculate the eGFR results. Performed By: #### T ROPHS #### [address] [address] .NEUABSon 04-14-2025 Neutrophil, Absolute 9.2 10 3/mcL High 2.3-8.1 [facility] Comment on above: Performed By: #### P ROBF, BFPR, PHBF, BFCT, GLUBF, LDBF #### [address] [address] APTTon 04-14-2025 aPTT Coag (Bld) [Time] 28.2 s Normal 25.0-35.0 [facility] Comment on above: Result Comment: For Heparin anticoagulation therapy, the recommended therapeutic range is: 54-77 seconds (APTT Correlation with Anti-Xa therapeutic range of 0.3-0.7 units/ml). PLEASE REFERENCE THE PHARMACY PROTOCOL FOR DOSING. Performed By: #### A PTT, PRO #### [address] [address] BMPon 04-14-2025 BUN/Creatinine Ratio 32.4 ratio High 10.0-22.0 [facility] Comment on above: Performed By: #### T MADHAVI #### [address] [address] Calcium [Mass/Vol] 8.6 mg/dL Low 8.7-10.4 [facility] Comment on above: Performed By: #### T MADHAVI #### [address] [address] Chloride [Moles/Vol] 98 mmol/L Normal 98-110 [facility] Comment on above: Performed By: #### T MADHAVI #### [address] [address] CO2 [Moles/Vol] 40 mmol/L Critically abnormal 22-32 [facility] Comment on above: Performed By: #### T MADHAVI #### [address] [address] Creatinine [Mass/Vol] 1.45 mg/dL High 0.60-1.40 [facility] Comment on above: Result Comment: Test ing performed on [employer] analyzer using enzymatic creatinine methodology. Performed By: #### T MADHAVI #### [address] [address] Electrolyte Balance 5.0 mEq/L Normal 4.0-15.[address] [facility] Comment on above: Performed By: #### T MADHAVI #### [address] [address] Glucose [Mass/Vol] 88 mg/dL Normal 82-115 [facility] Comment on above: Performed By: #### T MADHAVI #### [address] [address] Potassium [Moles/Vol] 4.3 mmol/L Normal 3.5-5.0 [facility] Comment on above: Performed By: #### T MADHAVI #### [place] [address] Sodium [Moles/Vol] 143 mmol/L Normal 136-145 [facility] Comment on above: Performed By: #### T MADHAVI #### [place] [address] Urea nitrogen [Mass/Vol] 47.0 mg/dL High 8.0-22.0 [facility] Comment on above: Performed By: #### T MADHAVI #### [place] [address] CBCon 04-14-2025 Erythrocyte distribution width (RBC) [Ratio] 18.4 % High 11.5-15.5 [facility] Comment on above: Performed By: #### P ROBF, BFPR, PHBF, BFCT, GLUBF, LDBF #### [place] [address] Hematocrit (Bld) [Volume fraction] 29.0 % Low 40.0-52.0 [facility] Comment on above: Performed By: #### P ROBF, BFPR, PHBF, BFCT, GLUBF, LDBF #### [place] [address] Hgb 9.0 G/dL Low 13.0-17.5 [facility] Comment on above: Performed By: #### P ROBF, BFPR, PHBF, BFCT, GLUBF, LDBF #### [place] [address] MCH (RBC) [Entitic mass] 26.3 pg Low 27.0-33.0 [facility] Comment on above: Performed By: #### P ROBF, BFPR, PHBF, BFCT, GLUBF, LDBF #### [place] [address] MCHC 31.0 G/dL Low 32.0-36.0 [facility] Comment on above: Performed By: #### P ROBF, BFPR, PHBF, BFCT, GLUBF, LDBF #### [place] [address] MCV (RBC) [Entitic vol] 84.9 fL Normal 81.0-100.0 [facility] Comment on above: Performed By: #### P ROBF, BFPR, PHBF, BFCT, GLUBF, LDBF #### [place] [address] Platelet 165 10 3/mcL Normal 150-450 [facility] Comment on above: Performed By: #### P ROBF, BFPR, PHBF, BFCT, GLUBF, LDBF #### [place] [address] Platelet mean volume (Bld) [Entitic vol] 7.8 fL Normal 6.4-10.5 [facility] Comment on above: Performed By: #### P ROBF, BFPR, PHBF, BFCT, GLUBF, LDBF #### [place] [address] RBC 3.41 10 6/mcL Low 4.50-6.00 [facility] Comment on above: Performed By: #### P ROBF, BFPR, PHBF, BFCT, GLUBF, LDBF #### [place] [address] WBC 10.8 10 3/mcL Normal 4.5-10.8 [facility] Comment on above: Performed By: #### P ROBF, BFPR, PHBF, BFCT, GLUBF, LDBF #### [place] [address] LABORATORYOrdered By: SYSTEM SYSTEM on 04-14-2025 PT Coag (PPP) [Time] 13.9 s Normal 9.0 - 1 4.4 seconds AH [facility] SS Comment on above: Interpretive Data: E ffective 03/03/08, Protime results may be affected by some antibiotics (i.e. Ciprofloxacin, Azithromycin, Bactrim) which may potentiate the action of oral anticoagulants, with further increases in Protime/INR. PT International Ratio 1.2 ratio Invalid Interpretation Code AH [facility] SS Comment on above: Interpretive Data: T mike [employer] (CHEST, 1991, 102:312S-25S) recommended therapeutic range for oral anticoagulant therapy is: LOW RISK: Prophylaxis of venous thrombosis INR: 2.0-3.0 Treatment of pulmonary embolism 2.0-3.0 Prevention of systemic embolism 2.0-3.0 HIGH RISK: Mechanical prosthetic valves 2.5-3.5 Troponin I.cardiac DL <= 0.01 ng/mL [Mass/Vol] 160 ng/L High 0 - 54 ng/L ADM SS Comment on above: Interpretive Data: High Sensitive Troponin I Reference Ranges: Female: 0-34 ng/L Male: 0-54 ng/L Testing performed on [employer] analyzer using direct chemiluminescent technology. No Panel Informationon 04-14 Legionella Urine Ag Presumptive negative for L. pneumophila serogroup 1 antigen in urine, suggesting no recent or current infection. Legionnaire's disease cannot be ruled out since other serogroups and species may also cause disease. [facility] Work Phone: Streptococcus Pneumoniae Urine Antig Presumptive negative for pneumococcal pneumonia, suggesting no current or recent pneumococcal infection. Infection due to Strep pneumoniae cannot be ruled out since the antigen present in the sample may be below the detection limit of the test. [facility] Work Phone: Comment on above: This test has not be en evaluated on patients taking antibiotics for greater than 24 hours or on patients who have recently completed an antibiotic regimen. The accuracy of this test has not been proven in young children. PROon 04-14-2025 INR Coag (PPP) [Relative time] 1.2 {INR} Normal [facility] Comment on above: Result Comment: [employer] (CHEST, 1991, 102:312S-25S) recommended therapeutic range for oral anticoagulant therapy is: LOW RISK: Prophylaxis of venous thrombosis INR: 2.0-3.0 Treatment of pulmonary embolism 2.0-3.0 Prevention of systemic embolism 2.0-3.0 HIGH RISK: Mechanical prosthetic valves 2.5-3.5 Performed By: #### A PTT, PRO #### [place] [address] PT Coag (PPP) [Time] 13.9 s Normal 9.0-14.4 [facility] Comment on above: Result Comment: Effe ctive 03/03/08, Protime results may be affected by some antibiotics (i.e. Ciprofloxacin, Azithromycin, Bactrim) which may potentiate the action of oral anticoagulants, with further increases in Protime/INR. Performed By: #### A PTT, PRO #### [address] [address] TROPHSon 04-14-2025 High Sensitivity Troponin I 160 ng/L High 0-54 [facility] Comment on above: Result Comment: High Sensitive Troponin I Reference Ranges: Female: 0-34 ng/L Male: 0-54 ng/L Testing performed on [employer] analyzer using direct chemiluminescent technology. Performed By: #### T ROPHS #### [place] [address] XR CHEST 1 VIEWon 04-14-2025 XR CHEST [...] 04/14/2025 7:00:29 AM Ordering Provider: COLLEEN Francois [facility] .Auto Diffon 04-13-2025 Basophil, Absolute 0.0 10 3/mcL Normal 0.0-0.3 [facility] Comment on above: Performed By: #### P ROBF, BFPR, PHBF, BFCT, GLUBF, LDBF #### [address] [address] Basophils/100 WBC (Bld) 0.0 % Normal 0.0-2.5 [facility] Comment on above: Performed By: #### P ROBF, BFPR, PHBF, BFCT, GLUBF, LDBF #### [address] [address] Eosinophil, Absolute 0.0 10 3/mcL Normal 0.0-0.7 [facility] Comment on above: Performed By: #### P ROBF, BFPR, PHBF, BFCT, GLUBF, LDBF #### [address] [address] Eosinophils/100 WBC (Bld) 0.1 % Normal 0.0-6.0 [facility] Comment on above: Performed By: #### P ROBF, BFPR, PHBF, BFCT, GLUBF, LDBF #### [address] [address] Lymphocyte, Absolute 0.3 10 3/mcL Low 0.9-4.3 [facility] Comment on above: Performed By: #### P ROBF, BFPR, PHBF, BFCT, GLUBF, LDBF #### [address] [address] Lymphocytes/100 WBC (Bld) 3.0 % Low 20.0-40.0 [facility] Comment on above: Performed By: #### P ROBF, BFPR, PHBF, BFCT, GLUBF, LDBF #### [address] [address] Monocyte, Absolute 0.7 10 3/mcL Normal 0.1-1.4 [facility] Comment on above: Performed By: #### P ROBF, BFPR, PHBF, BFCT, GLUBF, LDBF #### [address] [address] Monocytes/100 WBC (Bld) 6.3 % Normal 2.0-13.0 [facility] Comment on above: Performed By: #### P ROBF, BFPR, PHBF, BFCT, GLUBF, LDBF #### [address] [address] Neutrophils/100 WBC (Bld) 90.6 % High 50.0-75.0 [facility] Comment on above: Performed By: #### P ROBF, BFPR, PHBF, BFCT, GLUBF, LDBF #### [address] [address] .GFRon 04-13-2025 Estimated Glomerular Filtration Rate 48 ml/min/1.73sqm Normal [facility] Comment on above: Result Comment: Stages [...] calculate the eGFR results. Performed By: #### P ROBF, BFPR, PHBF, BFCT, GLUBF, LDBF #### [address] [address] .NEUABSon 04-13-2025 Neutrophil, Absolute 10.5 10 3/mcL High 2.3-8.1 [facility] Comment on above: Performed By: #### P ROBF, BFPR, PHBF, BFCT, GLUBF, LDBF #### [address] [address] CBCon 04-13-2025 Erythrocyte distribution width (RBC) [Ratio] 17.7 % High 11.5-15.5 [facility] Comment on above: Performed By: #### P ROBF, BFPR, PHBF, BFCT, GLUBF, LDBF #### [address] [address] Hematocrit (Bld) [Volume fraction] 29.7 % Low 40.0-52.0 [facility] Comment on above: Performed By: #### P ROBF, BFPR, PHBF, BFCT, GLUBF, LDBF #### [place] [address] Hgb 9.4 G/dL Low 13.0-17.5 [facility] Comment on above: Performed By: #### P ROBF, BFPR, PHBF, BFCT, GLUBF, LDBF #### [place] [address] MCH (RBC) [Entitic mass] 26.6 pg Low 27.0-33.0 [facility] Comment on above: Performed By: #### P ROBF, BFPR, PHBF, BFCT, GLUBF, LDBF #### [place] [address] MCHC 31.6 G/dL Low 32.0-36.0 [facility] Comment on above: Performed By: #### P ROBF, BFPR, PHBF, BFCT, GLUBF, LDBF #### [place] [address] MCV (RBC) [Entitic vol] 84.3 fL Normal 81.0-100.0 [facility] Comment on above: Performed By: #### P ROBF, BFPR, PHBF, BFCT, GLUBF, LDBF #### [place] [address] Platelet 201 10 3/mcL Normal 150-450 [facility] Comment on above: Performed By: #### P ROBF, BFPR, PHBF, BFCT, GLUBF, LDBF #### [place] [address] Platelet mean volume (Bld) [Entitic vol] 8.1 fL Normal 6.4-10.5 [facility] Comment on above: Performed By: #### P ROBF, BFPR, PHBF, BFCT, GLUBF, LDBF #### [place] [address] RBC 3.52 10 6/mcL Low 4.50-6.00 [facility] Comment on above: Performed By: #### P ROBF, BFPR, PHBF, BFCT, GLUBF, LDBF #### [address] [address] WBC 11.6 10 3/mcL High 4.5-10.8 [facility] Comment on above: Performed By: #### P ROBF, BFPR, PHBF, BFCT, GLUBF, LDBF #### [address] [address] CMPon 04-13-2025 Albumin Level 2.9 G/dL Low 3.2-4.8 [facility] Comment on above: Performed By: #### P ROBF, BFPR, PHBF, BFCT, GLUBF, LDBF #### [address] [address] Albumin/Globulin [Mass ratio] 0.9 {ratio} Normal 0.9-1.6 [facility] Comment on above: Performed By: #### P ROBF, BFPR, PHBF, BFCT, GLUBF, LDBF #### [address] [address] ALP [Catalytic activity/Vol] 58 U/L Normal 38-126 [facility] Comment on above: Performed By: #### P ROBF, BFPR, PHBF, BFCT, GLUBF, LDBF #### [address] [address] ALT [Catalytic activity/Vol] 32 U/L Normal 12-55 [facility] Comment on above: Performed By: #### P ROBF, BFPR, PHBF, BFCT, GLUBF, LDBF #### [address] [address] AST [Catalytic activity/Vol] 26 U/L Normal 8-34 [facility] Comment on above: Performed By: #### P ROBF, BFPR, PHBF, BFCT, GLUBF, LDBF #### [place] [id number] Bili Total 0.50 mg/dL Normal 0.20-1.20 [facility] Comment on above: Result Comment: Use of this assay is not recommended for patients undergoing treatment with eltrombopag due to the potential for falsely elevated results. Performed By: #### P ROBF, BFPR, PHBF, BFCT, GLUBF, LDBF #### [address] [address] BUN/Creatinine Ratio 33.3 ratio High 10.0-22.0 [facility] Comment on above: Performed By: #### P ROBF, BFPR, PHBF, BFCT, GLUBF, LDBF #### [address] [address] Calcium [Mass/Vol] 8.8 mg/dL Normal 8.7-10.4 [facility] Comment on above: Performed By: #### P ROBF, BFPR, PHBF, BFCT, GLUBF, LDBF #### [address] [address] Chloride [Moles/Vol] 100 mmol/L Normal 98-110 [facility] Comment on above: Performed By: #### P ROBF, BFPR, PHBF, BFCT, GLUBF, LDBF #### [address] [address] CO2 [Moles/Vol] 39 mmol/L High 22-32 [facility] Comment on above: Performed By: #### P ROBF, BFPR, PHBF, BFCT, GLUBF, LDBF #### [address] [address] Creatinine [Mass/Vol] 1.47 mg/dL High 0.60-1.40 [facility] Comment on above: Result Comment: Test ing performed on [employer] analyzer using enzymatic creatinine methodology. Performed By: #### P ROBF, BFPR, PHBF, BFCT, GLUBF, LDBF #### [address] [address] Electrolyte Balance 4.0 mEq/L Normal 4.0-15.[address] [facility] Comment on above: Performed By: #### P ROBF, BFPR, PHBF, BFCT, GLUBF, LDBF #### [address] [address] Globulin 3.4 G/dL Normal 2.5-4.2 [facility] Comment on above: Performed By: #### P ROBF, BFPR, PHBF, BFCT, GLUBF, LDBF #### [address] [address] Glucose [Mass/Vol] 192 mg/dL High 82-115 [facility] Comment on above: Performed By: #### P ROBF, BFPR, PHBF, BFCT, GLUBF, LDBF #### [address] [address] Potassium [Moles/Vol] 4.5 mmol/L Normal 3.5-5.0 [facility] Comment on above: Performed By: #### P ROBF, BFPR, PHBF, BFCT, GLUBF, LDBF #### [address] [address] Sodium [Moles/Vol] 143 mmol/L Normal 136-145 [facility] Comment on above: Performed By: #### P ROBF, BFPR, PHBF, BFCT, GLUBF, LDBF #### [place] [address] Total Protein 6.3 G/dL Normal 5.7-8.2 [facility] Comment on above: Performed By: #### P ROBF, BFPR, PHBF, BFCT, GLUBF, LDBF #### [address] [address] Urea nitrogen [Mass/Vol] 49.0 mg/dL High 8.0-22.0 [facility] Comment on above: Performed By: #### P ROBF, BFPR, PHBF, BFCT, GLUBF, LDBF #### [address] [address] LABORATORYOrdered By: SYSTEM SYSTEM on 04-13-2025 Troponin I.cardiac DL <= 0.01 ng/mL [Mass/Vol] 174 ng/L High 0 - 54 ng/L [facility] Comment on above: Interpretive Data: High Sensitive Troponin I Reference Ranges: Female: 0-34 ng/L Male: 0-54 ng/L Testing performed on [employer] IM analyzer using direct chemiluminescent technology. Lactate [Moles/Vol] 1.2 mmol/L Normal 0.5 - 2. 2 mmol/L ADM SS Natriuretic peptide.B prohormone N-Terminal IA [Mass/Vol] 6315 pg/mL High 0 - 1800 pg/mL ADM SS PT Coag (PPP) [Time] 14.5 s High 9.0 - 1 4.4 seconds [facility] SS Comment on above: Interpretive Data: E ffective 03/03/08, Protime results may be affected by some antibiotics (i.e. Ciprofloxacin, Azithromycin, Bactrim) which may potentiate the action of oral anticoagulants, with further increases in Protime/INR. PT International Ratio 1.3 ratio Invalid Interpretation Code [facility] Comment on above: Interpretive Data: Tyler mckeon [employer] (CHEST, 1992, 102:312S-25S) recommended therapeutic range for oral anticoagulant therapy is: LOW RISK: Prophylaxis of venous thrombosis INR: 2.0-3.0 Treatment of pulmonary embolism 2.0-3.0 Prevention of systemic embolism 2.0-3.0 HIGH RISK: Mechanical prosthetic valves 2.5-3.5 Troponin I.cardiac DL <= 0.01 ng/mL [Mass/Vol] 141 ng/L High 0 - 54 ng/L ADM SS Comment on above: Interpretive Data: High Sensitive Troponin I Reference Ranges: Female: 0-34 ng/L Male: 0-54 ng/L Testing performed on [employer] IM analyzer using direct chemiluminescent technology. LABORATORYOrdered By: Bhakti Lanier on 04-13-2025 M. pneumoniae IgG IA Ql (S) Positive 28 *NA* (04/13/25 7:20 AM) Invalid Interpretation Code [facility] Comment on above: Interpretive Data: I NTERPRETATION OF MYCOPLASMA IgG BY EIA: Negative: No detectable M. pneumoniae IgG antibody. Positive: Mycoplasma pneumoniae IgG antibody Detected. Equivocal: Equivocal for IgG antibodies to Mycoplasma pneumoniae. Suggest repeat testing in 10-14 days. M. pneumoniae IgM IA Ql (S) Negative 27 (04/13/25 7:20 AM) Normal Man [facility] Comment on above: Interpretive Data: [...] Lactic Acid Lvl 1.2 mmol/L Normal 0.5-2.2 [facility] Comment on above: Performed By: #### P ROBF, BFPR, PHBF, BFCT, GLUBF, LDBF #### [place] [address] MGon 04-13-2025 Magnesium [Mass/Vol] 2.2 mg/dL Normal 1.6-2.4 [facility] Comment on above: Performed By: #### P ROBF, BFPR, PHBF, BFCT, GLUBF, LDBF #### [place] [address] MYCOon 04-13-2025 Mycoplasma IgG Positive Normal [facility] Comment on above: Result Comment: INTE RPRETATION OF MYCOPLASMA IgG BY EIA: Negative: No detectable M. pneumoniae IgG antibody. Positive: Mycoplasma pneumoniae IgG antibody Detected. Equivocal: Equivocal for IgG antibodies to Mycoplasma pneumoniae. Suggest repeat testing in 10-14 days. Performed By: #### P ROBF, BFPR, PHBF, BFCT, GLUBF, LDBF #### [place] [address] Mycoplasma IgM Negative Normal [facility] Comment on above: Result Comment: INTE RPRETATION OF MYCOPLASMA IgM: Negative: IgM to M. pneumoniae Absent, or at levels below the assay limit of detection. Positive: IgM to M. pneumoniae Present. Invalid: Test results are invalid due to invalid internal control. Assay was performed in duplicate. Repeat testing is suggested if clinically indicated. Performed By: #### P ROBF, BFPR, PHBF, BFCT, GLUBF, LDBF #### [place] [address] No Panel Informationon 04-13 Microscopic examination of blood, culture Culture has been received in lab and is no growth to date. Routine cultures are held for 5 days. [facility] Work Phone: PBon 04-13-2025 Natriuretic peptide B (Bld) [Mass/Vol] 6315 pg/mL High 0-1800 [facility] Comment on above: Performed By: #### P ROBF, BFPR, PHBF, BFCT, GLUBF, LDBF #### [address] [address] PROon 04-13-2025 INR Coag (PPP) [Relative time] 1.3 {INR} Normal [facility] Comment on above: Result Comment: [employer] (CHEST, 1991, 102:312S-25S) recommended therapeutic range for oral anticoagulant therapy is: LOW RISK: Prophylaxis of venous thrombosis INR: 2.0-3.0 Treatment of pulmonary embolism 2.0-3.0 Prevention of systemic embolism 2.0-3.0 HIGH RISK: Mechanical prosthetic valves 2.5-3.5 Performed By: #### P ROBF, BFPR, PHBF, BFCT, GLUBF, LDBF #### [address] [address] PT Coag (PPP) [Time] 14.5 s High 9.0-14.4 [facility] Comment on above: Result Comment: Effe ctive 03/03/08, Protime results may be affected by some antibiotics (i.e. Ciprofloxacin, Azithromycin, Bactrim) which may potentiate the action of oral anticoagulants, with further increases in Protime/INR. Performed By: #### P ROBF, BFPR, PHBF, BFCT, GLUBF, LDBF #### [address] [address] TROPHSon 04-13-2025 High Sensitivity Troponin I 174 ng/L High 0-54 [facility] Comment on above: Result Comment: High Sensitive Troponin I Reference Ranges: Female: 0-34 ng/L Male: 0-54 ng/L Testing performed on [employer] analyzer using direct chemiluminescent technology. Performed By: #### P ROBF, BFPR, PHBF, BFCT, GLUBF, LDBF #### [address] [address] High Sensitivity Troponin I 141 ng/L High 0-54 [facility] Comment on above: Result Comment: High Sensitive Troponin I Reference Ranges: Female: 0-34 ng/L Male: 0-54 ng/L Testing performed on [employer] analyzer using direct chemiluminescent technology. Performed By: #### P ROBF, BFPR, PHBF, BFCT, GLUBF, LDBF #### [facility] [address] [place], [place] [address] XR CHEST 1 VIEWon 04-13-2025 XR CHEST [...] Date: 04/13/2025 2:58:50 PM Ordering Provider: COLLEEN Francois [facility] 12 Lead EKGon 04-12-2025 12 Lead EKG Normal [facility] Absolute lymphocyte countOrd ered By: Daniel Brownlee on 04-12-2025 Lymphocytes Auto (Unsp spec) [#/Vol] 0.34 10*3/uL Low 0.83-4.51 [facility] Anion gap in Serum or Plasma Ordered By: Daniel Brownlee on 04-12-2025 Anion gap [Moles/Vol] 9 mmol/L 5-15 [facility] Automated lymphocyte count a s percentage of total leukocytesOrdered By: Daniel Brownlee on 04-12-2025 Lymphocytes/100 WBC Auto (Unsp spec) 2.5 % Low 19-41 [facility] BUN/creatinine ratioOrdered By: Daniel Brownlee on 04-12-2025 Urea nitrogen/Creatinine [Mass ratio] 41.9 mg/mg High 10-20 [facility] Basic Metabolic Profile (BMP )on 04-12-2025 BUN/CRE 41.9 RATIO High 10-20 [facility] Comment on above: Performed By: #### L 503.7505, L500.2500 ####[facility] [address] [place], [address] Calcium [Mass/Vol] 8.7 mg/dL Normal 7.6-11.0 [facility] Comment on above: Performed By: #### L 503.7505, L500.2500 ####[facility] [address] [place], [address] Chloride [Moles/Vol] 93 mmol/L Low 98-108 [facility] Comment on above: Performed By: #### L 503.7505, L500.2500 ####[facility] [address] [place], [address] CO2 [Moles/Vol] 36.5 mmol/L High 21.0-32.0 [facility] Comment on above: Performed By: #### L 503.7505, L500.2500 ####[facility] [address] [place], [address] Creatinine [Mass/Vol] 1.43 mg/dL High 0.70-1.20 [facility] Comment on above: Performed By: #### L 503.7505, L500.2500 ####[facility] [address] [place], [address] ECRCL 37.18 ml/min Low 50-250 [facility] Comment on above: Performed By: #### L 503.7505, L500.2500 ####[facility] [address] [place], [address] GAP 9 Normal 5-15 [facility] Comment on above: Performed By: #### L 503.7505, L500.2500 ####[facility] [address] [place], [address] GFR/1.73 sq M.predicted among non-blacks MDRD (S/P/Bld) [Vol rate/Area] 50 mL/min/{1.73_m2} Low >60 [facility] Comment on above: Result Comment: mL/m in/1.73m2 CKD-EPI Creatinine Equation (2020) Performed By: #### L 503.7505, L500.2500 ####[facility] [address] [place], [address] Glucose [Mass/Vol] 189 mg/dL High 70-99 [facility] Comment on above: Performed By: #### L 503.7505, L500.2500 ####[facility] [address] [place], [address] Potassium [Moles/Vol] 4.3 mmol/L Normal 3.3-5.1 [facility] Comment on above: Performed By: #### L 503.7505, L500.2500 ####[facility] [address] [place], [address] Sodium [Moles/Vol] 138 mmol/L Normal 133-145 [facility] Comment on above: Performed By: #### L 503.7505, L500.2500 ####[facility] [address] [place], [address] Urea nitrogen [Mass/Vol] 60 mg/dL High 4-19 [facility] Comment on above: Performed By: #### L 503.7505, L500.2500 ####[facility] [address] [place], [address] Basophil percentageOrdered B y: Daniel Brownlee on 04-12-2025 Basophils/100 WBC (Bld) 0.1 % 0-1 [facility] Bedside Glucoseon 04-12-2025 FINGERSTICK GLU 143 mg/dL High 74-106 [facility] Comment on above: Result Comment: KODY GEMENT OF PATIENT CARE PER NURSING PROTOCOL Performed By: #### L 501.080 ####[facility] [address] [place], [address] FINGERSTICK GLU 222 mg/dL High 74-106 [facility] Comment on above: Result Comment: KODY GEMENT OF PATIENT CARE PER NURSING PROTOCOL Performed By: #### L 501.080 ####[facility] [address] [place], [address] FINGERSTICK GLU 222 mg/dL High 74-106 [facility] Comment on above: Result Comment: KODY GEMENT OF PATIENT CARE PER NURSING PROTOCOL Performed By: #### L 501.080 ####[facility] [address] [place], [address] Body Fluid Culton 04-12-2025 BFC Culture exhibits no growth. Normal [facility] Comment on above: Performed By: #### M 100.4001, L350.1000, L200.0200, M100.2900, M100.2000 ####[facility] [address] [place], [address] CBC W/Diff, Automatedon 03-21 Absolute Lymph 0.34 X10 3/uL Low 0.83-4.51 [facility] Comment on above: Performed By: #### L 100.0100, L501.4021 ####[facility] [address] [place], [address] Absolute Neut 12.7 X10 3/uL High 2.0-7.7 [facility] Comment on above: Performed By: #### L 100.0100, L501.4021 ####[facility] [address] [place], [address] Basophils/100 WBC (Bld) 0.1 % Normal 0-1 [facility] Comment on above: Performed By: #### L 100.0100, L501.4021 ####[facility] [address] [place], [address] Eosinophils/100 WBC (Bld) 0.0 % Normal 0-5 [facility] Comment on above: Performed By: #### L 100.0100, L501.4021 ####[facility] [address] [place], [address] Erythrocyte distribution width (RBC) [Ratio] 16.6 % High 11.6-14.6 [facility] Comment on above: Performed By: #### L 100.0100, L501.4021 ####[facility] [address] [place], [address] Hematocrit (Bld) [Volume fraction] 29.6 % Low 40-54 [facility] Comment on above: Performed By: #### L 100.0100, L501.4021 ####[facility] [address] [place], [address] Hemoglobin (Bld) [Mass/Vol] 9.1 g/dL Low 13.0-16.5 [facility] Comment on above: Performed By: #### L 100.0100, L501.4021 ####[facility] [address] [place], [address] IG% 0.700 Normal 0.0-0.9 [facility] Comment on above: Result Comment: IG% - Immature Granulocytes (promyelocytes, myelocytes andmetamyelocytes) > 1% indicates that a LEFT SHIFT is Present. Performed By: #### L 100.0100, L501.4021 ####[facility] [address] [place], [address] Lymphocytes/100 WBC (Bld) 2.5 % Low 19-41 [facility] Comment on above: Performed By: #### L 100.0100, L501.4021 ####[facility] [address] [place], [address] MCH (RBC) [Entitic mass] 27.2 pg Normal 27.0-32.0 [facility] Comment on above: Performed By: #### L 100.0100, L501.4021 ####[facility] [address] [place], [address] MCHC (RBC) [Mass/Vol] 30.7 g/dL Low 32-36 [facility] Comment on above: Performed By: #### L 100.0100, L501.4021 ####[facility] [address] [place], [address] MCV (RBC) [Entitic vol] 88.4 fL Normal 80-94 [facility] Comment on above: Performed By: #### L 100.0100, L501.4021 ####[facility] [address] [place], [address] Monocytes/100 WBC (Bld) 4.2 % Normal 0-10 [facility] Comment on above: Performed By: #### L 100.0100, L501.4021 ####[facility] [address] [place], [address] Neutrophils/100 WBC (Bld) 92.5 % High 47-70 [facility] Comment on above: Performed By: #### L 100.0100, L501.4021 ####[facility] [address] [place], [address] Nucleated RBC (Bld) [#/Vol] 0 10*3/uL Normal 0-5 [facility] Comment on above: Performed By: #### L 100.0100, L501.4021 ####[facility] [address] [place], [address] Platelet mean volume (Bld) [Entitic vol] 9.9 fL Normal 6.2-12.0 [facility] Comment on above: Performed By: #### L 100.0100, L501.4021 ####[facility] [address] [place], [address] Platelets (Bld) [#/Vol] 193 10*3/uL Normal 150-450 [facility] Comment on above: Performed By: #### L 100.0100, L501.4021 ####[facility] [address] [place], [address] RBC (Bld) [#/Vol] 3.35 10*6/uL Low 4.6-6.2 [facility] Comment on above: Performed By: #### L 100.0100, L501.4021 ####[facility] [address] [place], [address] RDW SD 53.6 fl High 35.1-43.9 [facility] Comment on above: Performed By: #### L 100.0100, L501.4021 ####[facility] [address] [place], [address] WBC (Bld) [#/Vol] 13.7 10*3/uL High 4.4-11.0 [facility] Comment on above: Performed By: #### L 100.0100, L501.4021 ####[facility] [address] [place], [address] Carbon dioxide, total [Moles /volume] in Central venous bloodOrdered By: Daniel Brownlee on 04-12-2025 CO2 [Moles/Vol] 36.5 mmol/L High 21.0-32.0 [facility] Chest PA and Lateralon 04-12 Chest PA and Lateral Normal [facility] Chest without Contraston Chest without Contrast Normal [facility] Chloride assayOrdered By: Kimo Brownlee on 04-12-2025 Chloride [Moles/Vol] 93 mmol/L Low 98-108 [facility] Culture, Anaerobic Any Sourc talat 04-12-2025 CUAN No anaerobic bacteri a isolated. Normal [facility] Comment on above: Performed By: #### M 100.4001, L350.1000, L200.0200, M100.2900, M100.2000 ####[facility] [address] [place], [address] Emergency Department Summary on 04-12-2025 Emergency Department Summary Normal [facility] Eosinophil percentageOrdered By: Daniel Brownlee on 04-12-2025 Eosinophils/100 WBC (Bld) 0.0 % 0-5 [facility] Erythrocyte distribution wid th ratioOrdered By: Daniel Brownlee on 04-12-2025 Erythrocyte distribution width (RBC) [Ratio] 16.6 % High 11.6-14.6 [facility] Erythrocyte distribution wid th standard deviationOrdered By: Daniel Brownlee on 04-12-2025 Erythrocyte distribution width (RBC) [Ratio] 53.6 fl High 35.1-43.9 [facility] Glomerular filtration rate ( GFR) estimation/1.73 sq m using serum, plasma, or whole bOrdered By: Daniel Brownlee on 04-12-2025 GFR/1.73 sq M.predicted among non-blacks MDRD (S/P/Bld) [Vol rate/Area] 50 mL/min/{1.73_m2} Low >60 [facility] Glucose measurement at bedsi deOrdered By: Valdez Olivo on 04-12-2025 Glucose [Mass/Vol] 143 mg/dL High 74-106 [facility] Hematocrit Auto (Bld) [Volum e fraction]Ordered By: Daniel Brownlee on 04-12-2025 Hematocrit (Bld) [Volume fraction] 29.6 % Low 40-54 [facility] Hemoglobin measurementOrdere d By: Daniel Brownlee on 04-12-2025 Hemoglobin (Bld) [Mass/Vol] 9.1 g/dL Low 13.0-16.5 [facility] Immature granulocytes/100 WB C Auto (Bld)Ordered By: Daniel Brownlee on 04-12-2025 Immature granulocytes/100 WBC (Bld) 0.700 % 0.0-0.9 [facility] L501.4021on 04-12-2025 Trop T High Sen 103 ng/L Invalid Interpretation Code <=22 [facility] Comment on above: Result Comment: Crit ical Result(s) Called ACOLE2 at: 2036 by:RIVERA??Results read back by same. Performed By: #### L 100.0100, L501.4021 ####[facility] [address] [place], [address] MCV (mean corpuscular volume ) determinationOrdered By: Daniel Brownlee on 04-12-2025 MCV (RBC) [Entitic vol] 88.4 fL 80-94 [facility] Mean corpuscular hemoglobin (MCH) determinationOrdered By: Daniel Brownlee on 04-12-2025 MCH (RBC) [Entitic mass] 27.2 pg 27.0-32.0 [facility] Monocyte percentageOrdered B y: Daniel Brownlee on 04-12-2025 Monocytes/100 WBC (Bld) 4.2 % 0-10 [facility] Natriuretic peptide.B prohor giirsh N-Terminal [Mass/volume] in Serum or PlasmaOrdered By: Daniel Brownlee on 04-12-2025 Natriuretic peptide.B prohormone N-Terminal [Mass/Vol] 7022 pg/mL High <1800 [facility] Neutrophil percentageOrdered By: Daniel Brownlee on 04-12-2025 Neutrophils/100 WBC (Bld) 92.5 % High 47-70 [facility] Platelet countOrdered By: Kimo Brownlee on 04-12-2025 Platelets (Bld) [#/Vol] 193 10*3/uL 150-450 [facility] Potassium measurement (mass/ volume)Ordered By: Daniel Brownlee on 04-12-2025 Potassium (Unsp spec) [Mass/Vol] 4.3 mmol/L 3.3-5.1 [facility] Pro- Brain NATRIURETIC PEPTI Adrienne 04-12-2025 Natriuretic peptide B (Bld) [Mass/Vol] 7022 pg/mL High <=1800 [facility] Comment on above: Result Comment: Hear t Failure Unlikely: < 300 pg/mLHeart Failure Likely< 50 Years: > 450 pg/mL50-75 Years: > 900 pg/mL>75 Years: > 1800 pg/mL Performed By: #### L 503.7505, L500.2500 ####[facility] [address] [place], [address] RBC Auto (Bld) [#/Vol]Ordere d By: Daniel Brownlee on 04-12-2025 RBC (Bld) [#/Vol] 3.35 10*6/uL Low 4.6-6.2 [facility] Serum creatinine measurement (mass/volume)Ordered By: Daniel Brownlee on 04-12-2025 Creatinine [Mass/Vol] 1.43 mg/dL High 0.70-1.20 [facility] Serum glucose measurement (m ass/volume)Ordered By: Daniel Brownlee on 04-12-2025 Glucose [Mass/Vol] 189 mg/dL High 70-99 [facility] Serum or plasma calcium kings[place] urement (mass/volume)Ordered By: Daniel Brownlee on 04-12-2025 Calcium [Mass/Vol] 8.7 mg/dL 7.6-11.0 [facility] Serum or plasma urea nitroge n measurement (mass/volume)Ordered By: Daniel Brownlee on 04-12-2025 Urea nitrogen [Mass/Vol] 60 mg/dL High 4-19 [facility] Sodium levelOrdered By: Mickie Brownlee on 04-12-2025 Sodium [Moles/Vol] 138 mmol/L 133-145 [facility] Troponin T HS 2 HRon 025 Trop T High Sen 98 ng/L Invalid Interpretation Code <=22 [facility] Comment on above: Result Comment: Crit ical Result(s) Called ALAMMERS at: 2234 by:RIVERA??Results read back by same. Performed By: #### L 499.0042 ####[facility] [address] [place], [place], [address] Troponin T HS 4 HRon 025 Trop T High Sen Normal <=22 [facility] Comment on above: Result Comment: RAMÓN ENT DISCHARGED Performed By: #### L 499.0043 ####[facility] [address] [place], [place], [address] Troponin T.cardiac [Mass/vol ume] in Serum or Plasma by High sensitivity methodOrdered By: Daniel Brownlee on 04-12-2025 Troponin T.cardiac High sensitivity method [Mass/Vol] 98 ng/L High <22 [facility] Troponin T.cardiac High sensitivity method [Mass/Vol] 103 ng/L High <22 [facility] White blood cell (WBC) count Ordered By: Daniel Brownlee on 04-12-2025 WBC (Bld) [#/Vol] 13.7 10*3/uL High 4.4-11.0 [facility] Absolute lymphocyte countOrd ered By: Valdez Olivo on 04-11-2025 Lymphocytes Auto (Unsp spec) [#/Vol] 0.34 10*3/uL Low 0.83-4.51 [facility] Anion gap in Serum or Plasma Ordered By: Valdez Olivo on 04-11-2025 Anion gap [Moles/Vol] 10 mmol/L 5-15 [facility] Automated lymphocyte count a s percentage of total leukocytesOrdered By: Valdez Olivo on 04-11-2025 Lymphocytes/100 WBC Auto (Unsp spec) 3.3 % Low 19-41 [facility] BUN/creatinine ratioOrdered By: Valdez Olivo on 04-11-2025 Urea nitrogen/Creatinine [Mass ratio] 42.1 mg/mg High 10- [facility] Basic Metabolic Profile (BMP )on 04-11-2025 BUN/CRE 42.1 RATIO High 06-08 [facility] Comment on above: Performed By: #### L 500.2500, L100.0100 ####[facility] [address] [place], [address] Calcium [Mass/Vol] 8.6 mg/dL Normal 7.6-11.0 [facility] Comment on above: Performed By: #### L 500.2500, L100.0100 ####[facility] [address] [place], [address] Chloride [Moles/Vol] 94 mmol/L Low 98-108 [facility] Comment on above: Performed By: #### L 500.2500, L100.0100 ####[facility] [address] [place], [address] CO2 [Moles/Vol] 33.4 mmol/L High 21.0-32.0 [facility] Comment on above: Performed By: #### L 500.2500, L100.0100 ####[facility] [address] [place], [address] Creatinine [Mass/Vol] 1.62 mg/dL High 0.70-1.20 [facility] Comment on above: Performed By: #### L 500.2500, L100.0100 ####[facility] [address] [place], [address] ECRCL 32.82 ml/min Low 50-250 [facility] Comment on above: Performed By: #### L 500.2500, L100.0100 ####[facility] [address] [place], [address] GAP 10 Normal 5-15 [facility] Comment on above: Performed By: #### L 500.2500, L100.0100 ####[facility] [address] [place], [address] GFR/1.73 sq M.predicted among non-blacks MDRD (S/P/Bld) [Vol rate/Area] 43 mL/min/{1.73_m2} Low >60 [facility] Comment on above: Result Comment: mL/m in/1.73m2 CKD-EPI Creatinine Equation (2020) Performed By: #### L 500.2500, L100.0100 ####[facility] [address] [place], [address] Glucose [Mass/Vol] 176 mg/dL High 70-99 [facility] Comment on above: Performed By: #### L 500.2500, L100.0100 ####[facility] [address] [place], [address] Potassium [Moles/Vol] 4.1 mmol/L Normal 3.3-5.1 [facility] Comment on above: Performed By: #### L 500.2500, L100.0100 ####[facility] [address] [place], [address] Sodium [Moles/Vol] 138 mmol/L Normal 133-145 [facility] Comment on above: Performed By: #### L 500.2500, L100.0100 ####[facility] [address] [place], [address] Urea nitrogen [Mass/Vol] 68 mg/dL High 4-19 [facility] Comment on above: Performed By: #### L 500.2500, L100.0100 ####[facility] [address] [place], [address] BUN Normal 4-19 [facility] Comment on above: Result Comment: Canc elled via OM: Order cancelled - Patient discharged Performed By: #### L 500.2500, L100.0100 ####[facility] [address] [place], [address] BUN/CRE Normal 10-20 [facility] Comment on above: Result Comment: Canc elled via OM: Order cancelled - Patient discharged Performed By: #### L 500.2500, L100.0100 ####[facility] [address] [place], [address] Calcium Normal 7.6-11.0 [facility] Comment on above: Result Comment: Canc elled via OM: Order cancelled - Patient discharged Performed By: #### L 500.2500, L100.0100 ####[facility] [address] [place], [address] CL Normal 98-108 [facility] Comment on above: Result Comment: Canc elled via OM: Order cancelled - Patient discharged Performed By: #### L 500.2500, L100.0100 ####[facility] [address] [place], [address] CO2 Normal 21.0-32.0 [facility] Comment on above: Result Comment: Canc elled via OM: Order cancelled - Patient discharged Performed By: #### L 500.2500, L100.0100 ####[facility] [address] [place], [address] CREAT,SERUM Normal 0.70-1.20 [facility] Comment on above: Result Comment: Canc elled via OM: Order cancelled - Patient discharged Performed By: #### L 500.2500, L100.0100 ####[facility] [address] [place], [address] eGFR Normal >60 [facility] Comment on above: Result Comment: Canc elled via OM: Order cancelled - Patient discharged Performed By: #### L 500.2500, L100.0100 ####[facility] [address] [place], [address] GAP Normal 5-15 [facility] Comment on above: Result Comment: Canc elled via OM: Order cancelled - Patient discharged Performed By: #### L 500.2500, L100.0100 ####[facility] [address] [place], [address] GLU Normal 70-99 [facility] Comment on above: Result Comment: Canc elled via OM: Order cancelled - Patient discharged Performed By: #### L 500.2500, L100.0100 ####[facility] [address] [place], [address] Potassium Normal 3.3-5.1 [facility] Comment on above: Result Comment: Canc elled via OM: Order cancelled - Patient discharged Performed By: #### L 500.2500, L100.0100 ####[facility] [address] [place], [address] Basic Metabolic Profile (BMP) Normal 133-145 [facility] Comment on above: Result Comment: Canc elled via OM: Order cancelled - Patient discharged Performed By: #### L 500.2500, L100.0100 ####[facility] [address] [place], [address] Basophil percentageOrdered B y: Valdez Geovani on 04-11-2025 Basophils/100 WBC (Bld) 0.1 % 0-1 [facility] Bedside Glucoseon 04-11-2025 FINGERSTICK GLU 323 mg/dL High 74-106 [facility] Comment on above: Result Comment: KODY GEMENT OF PATIENT CARE PER NURSING PROTOCOL Performed By: #### L 501.080 ####[facility] [address] [place], [address] FINGERSTICK GLU 166 mg/dL High 74-106 [facility] Comment on above: Result Comment: KODY GEMENT OF PATIENT CARE PER NURSING PROTOCOL Performed By: #### L 501.080 ####[facility] [address] [place], [address] FINGERSTICK GLU 273 mg/dL High 74-106 [facility] Comment on above: Result Comment: KODY GEMENT OF PATIENT CARE PER NURSING PROTOCOL Performed By: #### L 501.080 ####[facility] [address] [place], [address] CBC W/Diff, Automatedon 08-2 -2024 Absolute Lymph 0.34 X10 3/uL Low 0.83-4.51 [facility] Comment on above: Performed By: #### L 500.2500, L100.0100 ####[facility] [address] [place], [address] Absolute Neut 9.0 X10 3/uL High 2.0-7.7 [facility] Comment on above: Performed By: #### L 500.2500, L100.0100 ####[facility] [address] [place], [address] Basophils/100 WBC (Bld) 0.1 % Normal 0-1 [facility] Comment on above: Performed By: #### L 500.2500, L100.0100 ####[facility] [address] [place], [address] Eosinophils/100 WBC (Bld) 0.0 % Normal 0-5 [facility] Comment on above: Performed By: #### L 500.2500, L100.0100 ####[facility] [address] [place], [address] Erythrocyte distribution width (RBC) [Ratio] 16.6 % High 11.6-14.6 [facility] Comment on above: Performed By: #### L 500.2500, L100.0100 ####[facility] [address] [place], [address] Hematocrit (Bld) [Volume fraction] 28.4 % Low 40-54 [facility] Comment on above: Performed By: #### L 500.2500, L100.0100 ####[facility] [address] [place], [address] Hemoglobin (Bld) [Mass/Vol] 8.7 g/dL Low 13.0-16.5 [facility] Comment on above: Performed By: #### L 500.2500, L100.0100 ####[facility] [address] [place], [address] IG% 0.600 Normal 0.0-0.9 [facility] Comment on above: Result Comment: IG% - Immature Granulocytes (promyelocytes, myelocytes andmetamyelocytes) > 1% indicates that a LEFT SHIFT is Present. Performed By: #### L 500.2500, L100.0100 ####[facility] [address] [place], [address] Lymphocytes/100 WBC (Bld) 3.3 % Low 19-41 [facility] Comment on above: Performed By: #### L 500.2500, L100.0100 ####[facility] [address] [place], [address] MCH (RBC) [Entitic mass] 26.7 pg Low 27.0-32.0 [facility] Comment on above: Performed By: #### L 500.2500, L100.0100 ####[facility] [address] [place], [address] MCHC (RBC) [Mass/Vol] 30.6 g/dL Low 32-36 [facility] Comment on above: Performed By: #### L 500.2500, L100.0100 ####[facility] [address] [place], [address] MCV (RBC) [Entitic vol] 87.1 fL Normal 80-94 [facility] Comment on above: Performed By: #### L 500.2500, L100.0100 ####[facility] [address] [place], [address] Monocytes/100 WBC (Bld) 8.7 % Normal 0-10 [facility] Comment on above: Performed By: #### L 500.2500, L100.0100 ####[facility] [address] [place], [address] Neutrophils/100 WBC (Bld) 87.3 % High 47-70 [facility] Comment on above: Performed By: #### L 500.2500, L100.0100 ####[facility] [address] [place], [address] Nucleated RBC (Bld) [#/Vol] 0 10*3/uL Normal 0-5 [facility] Comment on above: Performed By: #### L 500.2500, L100.0100 ####[facility] [address] [place], [address] Platelet mean volume (Bld) [Entitic vol] 10.2 fL Normal 6.2-12.0 [facility] Comment on above: Performed By: #### L 500.2500, L100.0100 ####[facility] [address] [place], [address] Platelets (Bld) [#/Vol] 186 10*3/uL Normal 150-450 [facility] Comment on above: Performed By: #### L 500.2500, L100.0100 ####[facility] [address] [place], [address] RBC (Bld) [#/Vol] 3.26 10*6/uL Low 4.6-6.2 [facility] Comment on above: Performed By: #### L 500.2500, L100.0100 ####[facility] [address] [place], [address] RDW SD 52.9 fl High 35.1-43.9 [facility] Comment on above: Performed By: #### L 500.2500, L100.0100 ####[facility] [address] [place], [address] WBC (Bld) [#/Vol] 10.3 10*3/uL Normal 4.4-11.0 [facility] Comment on above: Performed By: #### L 500.2500, L100.0100 ####[facility] [address] [place], [address] Absolute Neut Normal 2.0-7.7 [facility] Comment on above: Result Comment: Canc elled via OM: Order cancelled - Patient discharged Performed By: #### L 500.2500, L100.0100 ####[facility] [address] [place], [address] HCT Normal 40-54 [facility] Comment on above: Result Comment: Canc elled via OM: Order cancelled - Patient discharged Performed By: #### L 500.2500, L100.0100 ####[facility] [address] [place], [address] HGB Normal 13.0-16.5 [facility] Comment on above: Result Comment: Canc elled via OM: Order cancelled - Patient discharged Performed By: #### L 500.2500, L100.0100 ####[facility] [address] [place], [address] MCH Normal 27.0-32.0 [facility] Comment on above: Result Comment: Canc elled via OM: Order cancelled - Patient discharged Performed By: #### L 500.2500, L100.0100 ####[facility] [address] [place], [address] MCHC Normal 32-36 [facility] Comment on above: Result Comment: Canc elled via OM: Order cancelled - Patient discharged Performed By: #### L 500.2500, L100.0100 ####[facility] [address] [place], [address] MCV Normal 80-94 [facility] Comment on above: Result Comment: Canc elled via OM: Order cancelled - Patient discharged Performed By: #### L 500.2500, L100.0100 ####[facility] [address] [place], [address] NEUT% Normal 47-70 [facility] Comment on above: Result Comment: Canc elled via OM: Order cancelled - Patient discharged Performed By: #### L 500.2500, L100.0100 ####[facility] [address] [place], [address] PLT Normal 150-450 [facility] Comment on above: Result Comment: Canc elled via OM: Order cancelled - Patient discharged Performed By: #### L 500.2500, L100.0100 ####[facility] [address] [place], [address] RBC Normal 4.6-6.2 [facility] Comment on above: Result Comment: Canc elled via OM: Order cancelled - Patient discharged Performed By: #### L 500.2500, L100.0100 ####[facility] [address] [place], [address] RDW CV Normal 11.6-14.6 [facility] Comment on above: Result Comment: Canc elled via OM: Order cancelled - Patient discharged Performed By: #### L 500.2500, L100.0100 ####[facility] [address] [place], [address] RDW SD Normal 35.1-43.9 [facility] Comment on above: Result Comment: Canc elled via OM: Order cancelled - Patient discharged Performed By: #### L 500.2500, L100.0100 ####[facility] [address] [place], [address] WBC Normal 4.4-11.0 [facility] Comment on above: Result Comment: Canc elled via OM: Order cancelled - Patient discharged Performed By: #### L 500.2500, L100.0100 ####[facility] [address] [place], [place], [address] COVID 19 AG RAPID (KHURRAM Becerril)on 04-11-2025 SARS-CoV-2 (COVID-19) RNA BRYAN+probe Ql (Unsp spec) Normal [facility] Comment on above: Performed By: #### M 100.505 ####[facility] [address] [place], [place], [address] COVID-19 virus antigen assay Ordered By: Valdez Olivo on 04-11-2025 SARS-CoV-2 (COVID-19) Ag IA.rapid Ql (Resp) [facility] Carbon dioxide, total [Moles /volume] in Central venous bloodOrdered By: Valdez Olivo on 04-11-2025 CO2 [Moles/Vol] 33.4 mmol/L High 21.0-32.0 [facility] Chloride assayOrdered By: Aiden Olivo on 04-11-2025 Chloride [Moles/Vol] 94 mmol/L Low 98-108 [facility] Eosinophil percentageOrdered By: Valdez Olivo on 04-11-2025 Eosinophils/100 WBC (Bld) 0.0 % 0-5 [facility] Erythrocyte distribution wid th ratioOrdered By: Valdez Olivo on 04-11-2025 Erythrocyte distribution width (RBC) [Ratio] 16.6 % High 11.6-14.6 [facility] Erythrocyte distribution wid th standard deviationOrdered By: Valdez Olivo on 04-11-2025 Erythrocyte distribution width (RBC) [Ratio] 52.9 fl High 35.1-43.9 [facility] Glomerular filtration rate ( GFR) estimation/1.73 sq m using serum, plasma, or whole bOrdered By: Valdez Olivo on 04-11-2025 GFR/1.73 sq M.predicted among non-blacks MDRD (S/P/Bld) [Vol rate/Area] 43 mL/min/{1.73_m2} Low >60 [facility] Gram Stainon 04-11-2025 GS Centrifuged Specimen ? Culture performed on centrifuged specimen Gram Stain 1+ White Blood Cells No organisms seen Normal [facility] Comment on above: Performed By: #### M 100.4001, L350.1000, L200.0200, M100.2900, M100.2000 ####[facility] [address] [place], [address] Hematocrit Auto (Bld) [Volum e fraction]Ordered By: Valdez Olivo on 04-11-2025 Hematocrit (Bld) [Volume fraction] 28.4 % Low 40-54 [facility] Hemoglobin measurementOrdere d By: Valdez Olivo on 04-11-2025 Hemoglobin (Bld) [Mass/Vol] 8.7 g/dL Low 13.0-16.5 [facility] Immature granulocytes/100 WB C Auto (Bld)Ordered By: Valdez Olivo on 04-11-2025 Immature granulocytes/100 WBC (Bld) 0.600 % 0.0-0.9 [facility] MCV (mean corpuscular volume ) determinationOrdered By: Valdez Olivo on 04-11-2025 MCV (RBC) [Entitic vol] 87.1 fL 80-94 [facility] Mean corpuscular hemoglobin (MCH) determinationOrdered By: Valdez Olivo on 04-11-2025 MCH (RBC) [Entitic mass] 26.7 pg Low 27.0-32.0 [facility] Monocyte percentageOrdered B y: Valdez Olivo on 04-11-2025 Monocytes/100 WBC (Bld) 8.7 % 0-10 [facility] Neutrophil percentageOrdered By: Valdez Olivo on 04-11-2025 Neutrophils/100 WBC (Bld) 87.3 % High 47-70 [facility] Platelet countOrdered By: Aiden Olivo on 04-11-2025 Platelets (Bld) [#/Vol] 186 10*3/uL 150-450 [facility] Potassium measurement (mass/ volume)Ordered By: Valdez Olivo on 04-11-2025 Potassium (Unsp spec) [Mass/Vol] 4.1 mmol/L 3.3-5.1 [facility] RBC Auto (Bld) [#/Vol]Ordere d By: Valdez Olivo on 04-11-2025 RBC (Bld) [#/Vol] 3.26 10*6/uL Low 4.6-6.2 [facility] Serum creatinine measurement (mass/volume)Ordered By: Valdez Olivo on 04-11-2025 Creatinine [Mass/Vol] 1.62 mg/dL High 0.70-1.20 [facility] Serum glucose measurement (m ass/volume)Ordered By: Valdez Olivo on 04-11-2025 Glucose [Mass/Vol] 176 mg/dL High 70-99 [facility] Serum or plasma calcium [place] urement (mass/volume)Ordered By: Valdez Olivo on 04-11-2025 Calcium [Mass/Vol] 8.6 mg/dL 7.6-11.0 [facility] Serum or plasma urea nitroge n measurement (mass/volume)Ordered By: Valdez Olivo on 04-11-2025 Urea nitrogen [Mass/Vol] 68 mg/dL High 4-19 [facility] Sodium levelOrdered By: Valdez Olivo on 04-11-2025 Sodium [Moles/Vol] 138 mmol/L 133-145 [facility] White blood cell (WBC) count Ordered By: Valdez Olivo on 04-11-2025 WBC (Bld) [#/Vol] 10.3 10*3/uL 4.4-11.0 [facility] Absolute lymphocyte countOrd ered By: Nicola Roman on 04-10-2025 Lymphocytes Auto (Unsp spec) [#/Vol] 0.17 10*3/uL Low 0.83-4.51 [facility] Activated partial thrombopla stin time (aPTT) in platelet poor plasma by coagulation aOrdered By: Nicola Marroquin on 04-10-2025 aPTT Coag (PPP) [Time] 29.5 s 24.1-36.2 [facility] Anaerobic cultureOrdered By: Nicola Roman on 04-10-2025 Bacteria identified Anaer cx Nom (Unsp spec) No anaerobic bacteria isolated. [facility] Anion gap in Serum or Plasma Ordered By: Nicola Roman on 04-10-2025 Anion gap [Moles/Vol] 12 mmol/L 5-15 [facility] Automated lymphocyte count a s percentage of total leukocytesOrdered By: Nicola Roman on 04-10-2025 Lymphocytes/100 WBC Auto (Unsp spec) 1.9 % Low 19-41 [facility] BUN/creatinine ratioOrdered By: Nicola Roman on 04-10-2025 Urea nitrogen/Creatinine [Mass ratio] 44.4 mg/mg High 10-20 [facility] Basic Metabolic Profile (BMP )on 04-10-2025 BUN/CRE 44.4 RATIO High 10-20 [facility] Comment on above: Performed By: #### L 100.0100, L500.2500 ####[facility] [address] [place], [address] Calcium [Mass/Vol] 8.4 mg/dL Normal 7.6-11.0 [facility] Comment on above: Performed By: #### L 100.0100, L500.2500 ####[facility] [address] [place], [address] Chloride [Moles/Vol] 92 mmol/L Low 98-108 [facility] Comment on above: Performed By: #### L 100.0100, L500.2500 ####[facility] [address] [place], [address] CO2 [Moles/Vol] 32.1 mmol/L High 21.0-32.0 [facility] Comment on above: Performed By: #### L 100.0100, L500.2500 ####[facility] [address] [place], [address] Creatinine [Mass/Vol] 1.71 mg/dL High 0.70-1.20 [facility] Comment on above: Performed By: #### L 100.0100, L500.2500 ####[facility] [address] [place], [address] ECRCL 31.09 ml/min Low 50-250 [facility] Comment on above: Performed By: #### L 100.0100, L500.2500 ####[facility] [address] [place], [address] GAP 12 Normal 5-15 [facility] Comment on above: Performed By: #### L 100.0100, L500.2500 ####[facility] [address] [place], [address] GFR/1.73 sq M.predicted among non-blacks MDRD (S/P/Bld) [Vol rate/Area] 40 mL/min/{1.73_m2} Low >60 [facility] Comment on above: Result Comment: mL/m in/1.73m2 CKD-EPI Creatinine Equation (2020) Performed By: #### L 100.0100, L500.2500 ####[facility] [address] [place], [address] Glucose [Mass/Vol] 244 mg/dL High 70-99 [facility] Comment on above: Performed By: #### L 100.0100, L500.2500 ####[facility] [address] [place], [address] Potassium [Moles/Vol] 4.1 mmol/L Normal 3.3-5.1 [facility] Comment on above: Performed By: #### L 100.0100, L500.2500 ####[facility] [address] [place], [address] Sodium [Moles/Vol] 137 mmol/L Normal 133-145 [facility] Comment on above: Performed By: #### L 100.0100, L500.2500 ####[facility] [address] [place], [address] Urea nitrogen [Mass/Vol] 76 mg/dL High 4-19 [facility] Comment on above: Performed By: #### L 100.0100, L500.2500 ####[facility] [address] [place], [address] Basophil percentageOrdered B y: Nicola Roman on 04-10-2025 Basophils/100 WBC (Bld) 0.1 % 0-1 [facility] Bedside Glucoseon 04-10-2025 FINGERSTICK GLU 341 mg/dL High 74-106 [facility] Comment on above: Result Comment: KODY GEMENT OF PATIENT CARE PER NURSING PROTOCOL Performed By: #### L 501.080 ####[facility] [address] [facility] [address] FINGERSTICK GLU 327 mg/dL High [facility]106 [facility] Comment on above: Result Comment: KODY GEMENT OF PATIENT CARE PER NURSING PROTOCOL Performed By: #### L 501.080 ####[facility] [address] [facility] [address] FINGERSTICK GLU 346 mg/dL High [address] [place] [address] Comment on above: Result Comment: KODY GEMENT OF PATIENT CARE PER NURSING PROTOCOL Performed By: #### L 501.080 ####[facility] [address] [facility] [address] FINGERSTICK GLU 236 mg/dL High [facility]106 [facility] Comment on above: Result Comment: KODY GEMENT OF PATIENT CARE PER NURSING PROTOCOL Performed By: #### L 501.080 ####[facility] [address] [place], [address] Body Fluid Cell Count+Diffon 04-10-2025 PATH COMM/BF Reviewed Normal [facility] Comment on above: Order Comment: The r eference range and other method performancespecifications have not been established for this bodyfluid. The test must be integrated into the clinicalcontext for interpretation. Result Comment: [employer] MYRANDA INFLAMMATORY CELLS. OCCASIONAL MESOTHELIAL CELLSNOTED. NO MALIGNANT CELLS IDENTIFIED.Ludmila GOMEZ MD 04/10/25 @1730 AMENDED REPORT 04/10/251734 PATH COMM/BF previously reported as: May follow Performed By: #### M 100.4001, L350.1000, L200.0200, M100.2900, M100.2000 ####[facility] [address] [place], [address] Body fluid appearance (nomin al result)Ordered By: Nicola Roman on 04-10-2025 Appearance (Body fld) CLEAR [facility] Body fluid color determinati onOrdered By: Nicola Roman on 04-10-2025 Color (Body fld) YELLOW [facility] Body fluid cultureOrdered By : Nicola Roman on 04-10-2025 Microbial culture, body fluid Culture exhibits no growth. [facility] Body fluid lactate dehydroge nase measurement (enzymatic activity/volume) by pyruvateOrdered By: Nicola Roman on 04-10-2025 LDH Pyruvate to lactate reaction (Body fld) [Catalytic activity/Vol] 61 Units/L Not Establ. [facility] Body fluid leukocytes count (number/volume)Ordered By: Nicola Roman on 04-10-2025 WBC (Body fld) [#/Vol] 0.128 10*3/uL [facility] Body fluid lymphocytes/100 l eukocytesOrdered By: Nicola Roman on 04-10-2025 Lymphocytes/100 WBC (Body fld) 44 % [facility] Body fluid macrophage countO rdered By: Nicola Roman on 04-10-2025 Macrophages (Body fld) [#/Vol] 41 % [facility] Body fluid mononuclear cell percentageOrdered By: Nicola Roman on 04-10-2025 Mononuclear cells/100 WBC (Body fld) 94.6 % [facility] Body fluid protein measureme nt (mass/volume)Ordered By: Nicola Roman on 04-10-2025 Protein (Body fld) [Mass/Vol] 2.1 g/dL Not Establ. [facility] Body fluid segmented neutrop hils count (number/volume)Ordered By: Nicola Roman on 04-10-2025 Segmented neutrophils (Body fld) [#/Vol] 6 % [facility] Body fluid total cell countO rdered By: Nicola Roman on 04-10-2025 Cells Counted Total (Body fld) [#] 0.154 10^3/ul [facility] CBC W/Diff, Automatedon 08-2 -2024 Absolute Lymph 0.17 X10 3/uL Low 0.83-4.51 [facility] Comment on above: Performed By: #### L 100.0100, L500.2500 ####[facility] [address] [place], [address] Absolute Neut 8.2 X10 3/uL High 2.0-7.7 [facility] Comment on above: Performed By: #### L 100.0100, L500.2500 ####[facility] [address] [place], [address] Basophils/100 WBC (Bld) 0.1 % Normal 0-1 [facility] Comment on above: Performed By: #### L 100.0100, L500.2500 ####[facility] [address] [place], [address] Eosinophils/100 WBC (Bld) 0.0 % Normal 0-5 [facility] Comment on above: Performed By: #### L 100.0100, L500.2500 ####[facility] [address] [place], [address] Erythrocyte distribution width (RBC) [Ratio] 17.1 % High 11.6-14.6 [facility] Comment on above: Performed By: #### L 100.0100, L500.2500 ####[facility] [address] [place], [address] Hematocrit (Bld) [Volume fraction] 28.2 % Low 40-54 [facility] Comment on above: Performed By: #### L 100.0100, L500.2500 ####[facility] [address] [place], [address] Hemoglobin (Bld) [Mass/Vol] 8.7 g/dL Low 13.0-16.5 [facility] Comment on above: Performed By: #### L 100.0100, L500.2500 ####[facility] [address] [place], [address] IG% 0.900 Normal 0.0-0.9 [facility] Comment on above: Result Comment: IG% - Immature Granulocytes (promyelocytes, myelocytes andmetamyelocytes) > 1% indicates that a LEFT SHIFT is Present. Performed By: #### L 100.0100, L500.2500 ####[facility] [address] [place], [address] Lymphocytes/100 WBC (Bld) 1.9 % Low 19-41 [facility] Comment on above: Performed By: #### L 100.0100, L500.2500 ####[facility] [address] [place], [address] MCH (RBC) [Entitic mass] 26.9 pg Low 27.0-32.0 [facility] Comment on above: Performed By: #### L 100.0100, L500.2500 ####[facility] [address] [place], [address] MCHC (RBC) [Mass/Vol] 30.9 g/dL Low 32-36 [facility] Comment on above: Performed By: #### L 100.0100, L500.2500 ####[facility] [address] [place], [address] MCV (RBC) [Entitic vol] 87.0 fL Normal 80-94 [facility] Comment on above: Performed By: #### L 100.0100, L500.2500 ####[facility] [address] [place], [address] Monocytes/100 WBC (Bld) 5.5 % Normal 0-10 [facility] Comment on above: Performed By: #### L 100.0100, L500.2500 ####[facility] [address] [place], [address] Neutrophils/100 WBC (Bld) 91.6 % High 47-70 [facility] Comment on above: Performed By: #### L 100.0100, L500.2500 ####[facility] [address] [place], [address] Nucleated RBC (Bld) [#/Vol] 0.2 10*3/uL Normal 0-5 [facility] Comment on above: Performed By: #### L 100.0100, L500.2500 ####[facility] [address] [place], [address] Platelet mean volume (Bld) [Entitic vol] 10.0 fL Normal 6.2-12.0 [facility] Comment on above: Performed By: #### L 100.0100, L500.2500 ####[facility] [address] [place], [address] Platelets (Bld) [#/Vol] 208 10*3/uL Normal 150-450 [facility] Comment on above: Performed By: #### L 100.0100, L500.2500 ####[facility] [address] [place], [address] RBC (Bld) [#/Vol] 3.24 10*6/uL Low 4.6-6.2 [facility] Comment on above: Performed By: #### L 100.0100, L500.2500 ####[facility] [address] [place], [address] RDW SD 53.5 fl High 35.1-43.9 [facility] Comment on above: Performed By: #### L 100.0100, L500.2500 ####[facility] [address] [place], [address] WBC (Bld) [#/Vol] 9.0 10*3/uL Normal 4.4-11.0 [facility] Comment on above: Performed By: #### L 100.0100, L500.2500 ####[facility] [address] [place], [place], [address] Carbon dioxide, total [Moles /volume] in Central venous bloodOrdered By: Nicola Roman on 04-10-2025 CO2 [Moles/Vol] 32.1 mmol/L High 21.0-32.0 [facility] Chest without Contraston Chest without Contrast Normal [facility] Chloride assayOrdered By: Stephen Roman on 04-10-2025 Chloride [Moles/Vol] 92 mmol/L Low 98-108 [facility] Cytology report of Body flui d Cyto stainOrdered By: Nicola Roman on 04-10-2025 Cytology report Cyto stain Doc (Body fld) SEE PATHOLOGY REPORT [facility] Cytology, Body Fluid / CSFon 04-10-2025 CYTOLOGY,BF/CSF SEE PATHOLOGY REPORT Normal [facility] Comment on above: Result Comment: Spec imen submitted to Anatomical Pathology Department fortesting. Performed By: #### M 100.4001, L350.1000, L200.0200, M100.2900, M100.2000 ####[facility] [address] [place], [place], [address] Eosinophil percentageOrdered By: Nicola Roman on 04-10-2025 Eosinophils/100 WBC (Bld) 0.0 % 0-5 [facility] Erythrocyte distribution wid th ratioOrdered By: Nicola Roman on 04-10-2025 Erythrocyte distribution width (RBC) [Ratio] 17.1 % High 11.6-14.6 [facility] Erythrocyte distribution wid th standard deviationOrdered By: Nicola Roman on 04-10-2025 Erythrocyte distribution width (RBC) [Ratio] 53.5 fl High 35.1-43.9 [facility] Glomerular filtration rate ( GFR) estimation/1.73 sq m using serum, plasma, or whole bOrdered By: Nicola Roman on 04-10-2025 GFR/1.73 sq M.predicted among non-blacks MDRD (S/P/Bld) [Vol rate/Area] 40 mL/min/{1.73_m2} Low >60 [facility] Glucose measurement at [facility] deOrdered By: Nicola Roman on 04-10-2025 Glucose [Mass/Vol] 327 mg/dL High 74-106 [facility] Glucose, Body Fluidon 2024 GLUC, BODY FLD 274 mg/dL Normal Not Establ. [facility] Comment on above: Performed By: #### L 504.0250, L503.0100, L503.0300 ####[facility] [address] [place], [address] Gram stainOrdered By: Nicola Roman on 04-10-2025 Microscopic observation Gram stain Nom (Unsp spec) [facility] Hematocrit Auto (Bld) [Volum e fraction]Ordered By: Nicola Roman on 04-10-2025 Hematocrit (Bld) [Volume fraction] 28.2 % Low 40-54 [facility] Hemoglobin measurementOrdere d By: Nicola Roman on 04-10-2025 Hemoglobin (Bld) [Mass/Vol] 8.7 g/dL Low 13.0-16.5 [facility] Immature granulocytes/100 WB C Auto (Bld)Ordered By: Nicola Roman on 04-10-2025 Immature granulocytes/100 WBC (Bld) 0.900 % 0.0-0.9 [facility] LDHon 04-10-2025 LDH 179 U/L Normal 87-241 [facility] Comment on above: Order Comment: FG1 3 O Performed By: #### L 504.2610 ####[facility] [address] [place], [address] LDH,Body Fluidon 04-10-2025 LDH,BF 61 Units/L Normal Not Establ. [facility] Comment on above: Performed By: #### L 504.0250, L503.0100, L503.0300 ####[facility] [address] [place], [address] MCV (mean corpuscular volume ) determinationOrdered By: Nicola Roman on 04-10-2025 MCV (RBC) [Entitic vol] 87.0 fL 80-94 [facility] Mean corpuscular hemoglobin (MCH) determinationOrdered By: Nicola Roman on 04-10-2025 MCH (RBC) [Entitic mass] 26.9 pg Low 27.0-32.0 [facility] Monocyte detectionOrdered By : Nicola Roman on 04-10-2025 Monocytes/100 WBC (Bld) 9 % [facility] Monocyte percentageOrdered B y: Nicola Roman on 04-10-2025 Monocytes/100 WBC (Bld) 5.5 % 0-10 [facility] Neutrophil percentageOrdered By: Nicola Roman on 04-10-2025 Neutrophils/100 WBC (Bld) 91.6 % High 47-70 [facility] No Panel InformationOrdered By: Nicola Roman on 04-10-2025 495 /mm3 [facility] SEE COMMENT [facility] Pacemaker Checkon 04-10-2025 Pacemaker Check Normal [facility] Partial Thromboplast Timeon 04-10-2025 aPTT Coag (Bld) [Time] 29.5 s Normal 24.1-36.2 [facility] Comment on above: Performed By: #### L 300.3900, L300.4310 ####[facility] [address] [place], [address] Pathologist interpretation o f Body fluid testsOrdered By: Nicola Roman on 04-10-2025 Pathologist interpretation (Body fld) [Interp] Reviewed [facility] Platelet countOrdered By: Stephen Roman on 04-10-2025 Platelets (Bld) [#/Vol] 208 10*3/uL 150-450 [facility] Potassium measurement (mass/ volume)Ordered By: Nicola Roman on 04-10-2025 Potassium (Unsp spec) [Mass/Vol] 4.1 mmol/L 3.3-5.1 [facility] Protein, Body Fluidon 2024 Protein [Mass/Vol] 2.1 g/dL Normal Not Establ. [facility] Comment on above: Performed By: #### L 504.0250, L503.0100, L503.0300 ####[facility] [address] [place], [address] Prothrombin Time w/INRon INR Coag (PPP) [Relative time] 1.3 {INR} Normal [facility] Comment on above: Performed By: #### L 300.3900, L300.4310 ####[facility] [address] [place], [address] PT Coag (PPP) [Time] 16.7 s High 11.7-14.9 [facility] Comment on above: Performed By: #### L 300.3900, L300.4310 ####[facility] [address] [place], [address] Prothrombin timeOrdered By: Nicola Marroquin on 04-10-2025 PT Coag (PPP) [Time] 16.7 s High 11.7-14.9 [facility] RBC Auto (Bld) [#/Vol]Ordere d By: Nicola Roman on 04-10-2025 RBC (Bld) [#/Vol] 3.24 10*6/uL Low 4.6-6.2 [facility] Serum creatinine measurement (mass/volume)Ordered By: Nicola Roman on 04-10-2025 Creatinine [Mass/Vol] 1.71 mg/dL High 0.70-1.20 [facility] Serum glucose measurement (m ass/volume)Ordered By: Nicola Roman on 04-10-2025 Glucose [Mass/Vol] 244 mg/dL High 70-99 [facility] Serum or plasma calcium [place] urement (mass/volume)Ordered By: Nicola Roman on 04-10-2025 Calcium [Mass/Vol] 8.4 mg/dL 7.6-11.0 [facility] Serum or plasma urea nitroge n measurement (mass/volume)Ordered By: Nicola Roman on 04-10-2025 Urea nitrogen [Mass/Vol] 76 mg/dL High 4-19 [facility] Sodium levelOrdered By: Jaspal Roman on 04-10-2025 Sodium [Moles/Vol] 137 mmol/L 133-145 [facility] Special Stain Group IIon Special Stain Group II Normal [facility] Comment on above: Performed By: #### P SSII ####[facility] [address] [place], [address] Specimen source identificati on of body fluidOrdered By: Nicola Roman on 04-10-2025 Specimen source Nom (Body fld) THORACENTESIS [facility] Thoracentesis W USon 025 Thoracentesis W US Normal [facility] White blood cell (WBC) count Ordered By: Nicola Roman on 04-10-2025 WBC (Bld) [#/Vol] 9.0 10*3/uL 4.4-11.0 [facility] 12 Lead EKGon 04-09-2025 12 Lead EKG Normal [facility] Basic Metabolic Profile (BMP )on 04-09-2025 BUN/CRE 37.7 RATIO High 10-20 [facility] Comment on above: Performed By: #### L 100.0100, L500.2500, L501.2300, L501.5200 ####[facility] [address] [place], [address] Calcium [Mass/Vol] 8.4 mg/dL Normal 7.6-11.0 [facility] Comment on above: Performed By: #### L 100.0100, L500.2500, L501.2300, L501.5200 ####[facility] [address] [place], [address] Chloride [Moles/Vol] 92 mmol/L Low 98-108 [facility] Comment on above: Performed By: #### L 100.0100, L500.2500, L501.2300, L501.5200 ####[facility] [address] [place], [address] CO2 [Moles/Vol] 31.9 mmol/L Normal 21.0-32.0 [facility] Comment on above: Performed By: #### L 100.0100, L500.2500, L501.2300, L501.5200 ####[facility] [address] [place], [address] Creatinine [Mass/Vol] 1.95 mg/dL High 0.70-1.20 [facility] Comment on above: Performed By: #### L 100.0100, L500.2500, L501.2300, L501.5200 ####[facility] [address] [place], [address] ECRCL 27.26 ml/min Low 50-250 [facility] Comment on above: Performed By: #### L 100.0100, L500.2500, L501.2300, L501.5200 ####[facility] [address] [place], [address] GAP 12 Normal 5-15 [facility] Comment on above: Performed By: #### L 100.0100, L500.2500, L501.2300, L501.5200 ####[facility] [address] [place], [address] GFR/1.73 sq M.predicted among non-blacks MDRD (S/P/Bld) [Vol rate/Area] 34 mL/min/{1.73_m2} Low >60 [facility] Comment on above: Result Comment: mL/m in/1.73m2 CKD-EPI Creatinine Equation (2020) Performed By: #### L 100.0100, L500.2500, L501.2300, L501.5200 ####[facility] [address] [place], [address] Glucose [Mass/Vol] 232 mg/dL High 70-99 [facility] Comment on above: Performed By: #### L 100.0100, L500.2500, L501.2300, L501.5200 ####[facility] [address] [place], [address] Potassium [Moles/Vol] 3.9 mmol/L Normal 3.3-5.1 [facility] Comment on above: Performed By: #### L 100.0100, L500.2500, L501.2300, L501.5200 ####[facility] [address] [place], [address] Sodium [Moles/Vol] 135 mmol/L Normal 133-145 [facility] Comment on above: Performed By: #### L 100.0100, L500.2500, L501.2300, L501.5200 ####[facility] [address] [place], [address] Urea nitrogen [Mass/Vol] 74 mg/dL High 4-19 [facility] Comment on above: Performed By: #### L 100.0100, L500.2500, L501.2300, L501.5200 ####[facility] [address] [place], [address] Bedside Glucoseon 04-09-2025 FINGERSTICK GLU 316 mg/dL High 74-106 [facility] Comment on above: Result Comment: KODY GEMENT OF PATIENT CARE PER NURSING PROTOCOL Performed By: #### L 501.080 ####[facility] [address] [place], [address] FINGERSTICK GLU 209 mg/dL High 74-106 [facility] Comment on above: Result Comment: KODY GEMENT OF PATIENT CARE PER NURSING PROTOCOL Performed By: #### L 501.080 ####[facility] [address] [place], [address] FINGERSTICK GLU 273 mg/dL High 74-106 [facility] Comment on above: Result Comment: KODY GEMENT OF PATIENT CARE PER NURSING PROTOCOL Performed By: #### L 501.080 ####[facility] [address] [place], [address] CBC W/Diff, Automatedon 08-2 Absolute Lymph 0.19 X10 3/uL Low 0.83-4.51 [facility] Comment on above: Performed By: #### L 100.0100, L500.2500, L501.2300, L501.5200 ####[facility] [address] [place], [address] Absolute Neut 6.3 X10 3/uL Normal 2.0-7.7 [facility] Comment on above: Performed By: #### L 100.0100, L500.2500, L501.2300, L501.5200 ####[facility] [address] [place], [address] Basophils/100 WBC (Bld) 0.1 % Normal 0-1 [facility] Comment on above: Performed By: #### L 100.0100, L500.2500, L501.2300, L501.5200 ####[facility] [address] [place], [address] Eosinophils/100 WBC (Bld) 0.0 % Normal 0-5 [facility] Comment on above: Performed By: #### L 100.0100, L500.2500, L501.2300, L501.5200 ####[facility] [address] [place], [address] Erythrocyte distribution width (RBC) [Ratio] 16.9 % High 11.6-14.6 [facility] Comment on above: Performed By: #### L 100.0100, L500.2500, L501.2300, L501.5200 ####[facility] [address] [place], [address] Hematocrit (Bld) [Volume fraction] 27.7 % Low 40-54 [facility] Comment on above: Performed By: #### L 100.0100, L500.2500, L501.2300, L501.5200 ####[facility] [address] [place], [address] Hemoglobin (Bld) [Mass/Vol] 8.6 g/dL Low 13.0-16.5 [facility] Comment on above: Performed By: #### L 100.0100, L500.2500, L501.2300, L501.5200 ####[facility] [address] [place], [address] IG% 0.600 Normal 0.0-0.9 [facility] Comment on above: Result Comment: IG% - Immature Granulocytes (promyelocytes, myelocytes andmetamyelocytes) > 1% indicates that a LEFT SHIFT is Present. Performed By: #### L 100.0100, L500.2500, L501.2300, L501.5200 ####[facility] [address] [place], [address] Lymphocytes/100 WBC (Bld) 2.8 % Low 19-41 [facility] Comment on above: Performed By: #### L 100.0100, L500.2500, L501.2300, L501.5200 ####[facility] [address] [place], [address] MCH (RBC) [Entitic mass] 27.0 pg Normal 27.0-32.0 [facility] Comment on above: Performed By: #### L 100.0100, L500.2500, L501.2300, L501.5200 ####[facility] [address] [place], [address] MCHC (RBC) [Mass/Vol] 31.0 g/dL Low 32-36 [facility] Comment on above: Performed By: #### L 100.0100, L500.2500, L501.2300, L501.5200 ####[facility] [address] [place], [address] MCV (RBC) [Entitic vol] 87.1 fL Normal 80-94 [facility] Comment on above: Performed By: #### L 100.0100, L500.2500, L501.2300, L501.5200 ####[facility] [address] [place], [address] Monocytes/100 WBC (Bld) 4.7 % Normal 0-10 [facility] Comment on above: Performed By: #### L 100.0100, L500.2500, L501.2300, L501.5200 ####[facility] [address] [place], [address] Neutrophils/100 WBC (Bld) 91.8 % High 47-70 [facility] Comment on above: Performed By: #### L 100.0100, L500.2500, L501.2300, L501.5200 ####[facility] [address] [place], [address] Nucleated RBC (Bld) [#/Vol] 0.3 10*3/uL Normal 0-5 [facility] Comment on above: Performed By: #### L 100.0100, L500.2500, L501.2300, L501.5200 ####[facility] [address] [place], [address] Platelet mean volume (Bld) [Entitic vol] 10.1 fL Normal 6.2-12.0 [facility] Comment on above: Performed By: #### L 100.0100, L500.2500, L501.2300, L501.5200 ####[facility] [address] [place], [address] Platelets (Bld) [#/Vol] 203 10*3/uL Normal 150-450 [facility] Comment on above: Performed By: #### L 100.0100, L500.2500, L501.2300, L501.5200 ####[facility] [address] [place], [address] RBC (Bld) [#/Vol] 3.18 10*6/uL Low 4.6-6.2 [facility] Comment on above: Performed By: #### L 100.0100, L500.2500, L501.2300, L501.5200 ####[facility] [address] [place], [address] RDW SD 53.1 fl High 35.1-43.9 [facility] Comment on above: Performed By: #### L 100.0100, L500.2500, L501.2300, L501.5200 ####[facility] [address] [place], [address] WBC (Bld) [#/Vol] 6.9 10*3/uL Normal 4.4-11.0 [facility] Comment on above: Performed By: #### L 100.0100, L500.2500, L501.2300, L501.5200 ####[facility] [address] [place], [address] CVS/PACEMAKERon 04-09-2025 CVS/PACEMAKER Normal [facility] Chest 1 View (Portable)on Chest 1 View (Portable) Normal [facility] Electrocardiogram reportOrde red By: Orly Mitchell on 04-09-2025 EKG study [facility] Work Phone: Magnesiumon 04-09-2025 Magnesium [Mass/Vol] 2.2 mg/dL Normal 1.5-2.2 [facility] Comment on above: Performed By: #### L 100.0100, L500.2500, L501.2300, L501.5200 ####[facility] [address] [place], [address] Magnesium measurement (mass/ volume)Ordered By: Nicola Roman on 04-09-2025 Magnesium (Unsp spec) [Mass/Vol] 2.2 mg/dL 1.5-2.2 [facility] Phosphoruson 04-09-2025 Phosphate [Mass/Vol] 3.9 mg/dL Normal 2.7-4.5 [facility] Comment on above: Performed By: #### L 100.0100, L500.2500, L501.2300, L501.5200 ####[facility] [address] [place], [address] Basic Metabolic Profile (BMP )on 04-08-2025 BUN/CRE 33.8 RATIO High 10- [facility] Comment on above: Performed By: #### L 100.0100, L500.2500 ####[facility] [address] [place], [address] Calcium [Mass/Vol] 8.6 mg/dL Normal 7.6-11.0 [facility] Comment on above: Performed By: #### L 100.0100, L500.2500 ####[facility] [address] [place], [address] Chloride [Moles/Vol] 95 mmol/L Low 98-108 [facility] Comment on above: Performed By: #### L 100.0100, L500.2500 ####[facility] [address] [place], [address] CO2 [Moles/Vol] 32.0 mmol/L Normal 21.0-32.0 [facility] Comment on above: Performed By: #### L 100.0100, L500.2500 ####[facility] [address] [place], [address] Creatinine [Mass/Vol] 1.91 mg/dL High 0.70-1.20 [facility] Comment on above: Performed By: #### L 100.0100, L500.2500 ####[facility] [address] [place], [address] ECRCL 27.84 ml/min Low 50-250 [facility] Comment on above: Performed By: #### L 100.0100, L500.2500 ####[facility] [address] [place], [address] GAP 11 Normal 5-15 [facility] Comment on above: Performed By: #### L 100.0100, L500.2500 ####[facility] [address] [place], [address] GFR/1.73 sq M.predicted among non-blacks MDRD (S/P/Bld) [Vol rate/Area] 35 mL/min/{1.73_m2} Low >60 [facility] Comment on above: Result Comment: mL/m in/1.73m2 CKD-EPI Creatinine Equation (2020) Performed By: #### L 100.0100, L500.2500 ####[facility] [address] [place], [address] Glucose [Mass/Vol] 240 mg/dL High 70-99 [facility] Comment on above: Performed By: #### L 100.0100, L500.2500 ####[facility] [address] [place], [address] Potassium [Moles/Vol] 4.0 mmol/L Normal 3.3-5.1 [facility] Comment on above: Performed By: #### L 100.0100, L500.2500 ####[facility] [address] [place], [address] Sodium [Moles/Vol] 138 mmol/L Normal 133-145 [facility] Comment on above: Performed By: #### L 100.0100, L500.2500 ####[facility] [address] [place], [address] Urea nitrogen [Mass/Vol] 65 mg/dL High 4-19 [facility] Comment on above: Performed By: #### L 100.0100, L500.2500 ####[facility] [address] [place], [address] Bedside Glucoseon 04-08-2024 FINGERSTICK GLU 216 mg/dL High 74-106 [facility] Comment on above: Result Comment: KODY GEMENT OF PATIENT CARE PER NURSING PROTOCOL Performed By: #### L 501.080 ####[facility] [address] [place], [address] FINGERSTICK GLU 270 mg/dL High 74-106 [facility] Comment on above: Result Comment: KODY GEMENT OF PATIENT CARE PER NURSING PROTOCOL Performed By: #### L 501.080 ####[facility] [address] [place], [address] FINGERSTICK GLU 199 mg/dL High 74-106 [facility] Comment on above: Result Comment: KODY GEMENT OF PATIENT CARE PER NURSING PROTOCOL Performed By: #### L 501.080 ####[facility] [address] [place], [address] CBC W/Diff, Automatedon 08 0-2024 Absolute Lymph 0.24 X10 3/uL Low 0.83-4.51 [facility] Comment on above: Performed By: #### L 100.0100, L500.2500 ####[facility] [address] [place], [address] Absolute Neut 6.3 X10 3/uL Normal 2.0-7.7 [facility] Comment on above: Performed By: #### L 100.0100, L500.2500 ####[facility] [address] [place], [address] Basophils/100 WBC (Bld) 0.0 % Normal 0-1 [facility] Comment on above: Performed By: #### L 100.0100, L500.2500 ####[facility] [address] [place], [address] Eosinophils/100 WBC (Bld) 0.0 % Normal 0-5 [facility] Comment on above: Performed By: #### L 100.0100, L500.2500 ####[facility] [address] [place], [address] Erythrocyte distribution width (RBC) [Ratio] 17.2 % High 11.6-14.6 [facility] Comment on above: Performed By: #### L 100.0100, L500.2500 ####[facility] [address] [place], [address] Hematocrit (Bld) [Volume fraction] 27.0 % Low 40-54 [facility] Comment on above: Performed By: #### L 100.0100, L500.2500 ####[facility] [address] [place], [address] Hemoglobin (Bld) [Mass/Vol] 8.3 g/dL Low 13.0-16.5 [facility] Comment on above: Performed By: #### L 100.0100, L500.2500 ####[facility] [address] [place], [address] IG% 0.600 Normal 0.0-0.9 [facility] Comment on above: Result Comment: IG% - Immature Granulocytes (promyelocytes, myelocytes andmetamyelocytes) > 1% indicates that a LEFT SHIFT is Present. Performed By: #### L 100.0100, L500.2500 ####[facility] [address] [place], [address] Lymphocytes/100 WBC (Bld) 3.5 % Low 19-41 [facility] Comment on above: Performed By: #### L 100.0100, L500.2500 ####[facility] [address] [place], [address] MCH (RBC) [Entitic mass] 26.9 pg Low 27.0-32.0 [facility] Comment on above: Performed By: #### L 100.0100, L500.2500 ####[facility] [address] [place], [address] MCHC (RBC) [Mass/Vol] 30.7 g/dL Low 32-36 [facility] Comment on above: Performed By: #### L 100.0100, L500.2500 ####[facility] [address] [place], [address] MCV (RBC) [Entitic vol] 87.4 fL Normal 80-94 [facility] Comment on above: Performed By: #### L 100.0100, L500.2500 ####[facility] [address] [place], [address] Monocytes/100 WBC (Bld) 4.5 % Normal 0-10 [facility] Comment on above: Performed By: #### L 100.0100, L500.2500 ####[facility] [address] [place], [address] Neutrophils/100 WBC (Bld) 91.4 % High 47-70 [facility] Comment on above: Performed By: #### L 100.0100, L500.2500 ####[facility] [address] [place], [address] Nucleated RBC (Bld) [#/Vol] 0 10*3/uL Normal 0-5 [facility] Comment on above: Performed By: #### L 100.0100, L500.2500 ####[facility] [address] [place], [address] Platelet mean volume (Bld) [Entitic vol] 10.7 fL Normal 6.2-12.0 [facility] Comment on above: Performed By: #### L 100.0100, L500.2500 ####[facility] [address] [place], [address] Platelets (Bld) [#/Vol] 192 10*3/uL Normal 150-450 [facility] Comment on above: Performed By: #### L 100.0100, L500.2500 ####[facility] [address] [place], [address] RBC (Bld) [#/Vol] 3.09 10*6/uL Low 4.6-6.2 [facility] Comment on above: Performed By: #### L 100.0100, L500.2500 ####[facility] [address] [place], [address] RDW SD 54.2 fl High 35.1-43.9 [facility] Comment on above: Performed By: #### L 100.0100, L500.2500 ####[facility] [address] [place], [address] WBC (Bld) [#/Vol] 6.9 10*3/uL Normal 4.4-11.0 [facility] Comment on above: Performed By: #### L 100.0100, L500.2500 ####[facility] [address] [place], [address] Consultation - Cardiologyon 04-08-2025 Consultation - Cardiology Normal [facility] Basic Metabolic Profile (BMP )on 04-07-2025 BUN/CRE 26.3 RATIO High 10-20 [facility] Comment on above: Performed By: #### L 501.2300, L500.2500 ####[facility] [address] [place], [address] Calcium [Mass/Vol] 8.8 mg/dL Normal 7.6-11.0 [facility] Comment on above: Performed By: #### L 501.2300, L500.2500 ####[facility] [address] [place], [address] Chloride [Moles/Vol] 96 mmol/L Low 98-108 [facility] Comment on above: Performed By: #### L 501.2300, L500.2500 ####[facility] [address] [place], [address] CO2 [Moles/Vol] 29.8 mmol/L Normal 21.0-32.0 [facility] Comment on above: Performed By: #### L 501.2300, L500.2500 ####[facility] [address] [place], [address] Creatinine [Mass/Vol] 2.21 mg/dL High 0.70-1.20 [facility] Comment on above: Performed By: #### L 501.2300, L500.2500 ####[facility] [address] [place], [address] ECRCL 24.06 ml/min Low 50-250 [facility] Comment on above: Performed By: #### L 501.2300, L500.2500 ####[facility] [address] [place], [address] GAP 11 Normal 5-15 [facility] Comment on above: Performed By: #### L 501.2300, L500.2500 ####[facility] [address] [place], [address] GFR/1.73 sq M.predicted among non-blacks MDRD (S/P/Bld) [Vol rate/Area] 29 mL/min/{1.73_m2} Low >60 [facility] Comment on above: Result Comment: mL/m in/1.73m2 CKD-EPI Creatinine Equation (2020) Performed By: #### L 501.2300, L500.2500 ####[facility] [address] [place], [address] Glucose [Mass/Vol] 171 mg/dL High 70-99 [facility] Comment on above: Performed By: #### L 501.2300, L500.2500 ####[facility] [address] [place], [address] Potassium [Moles/Vol] 4.6 mmol/L Normal 3.3-5.1 [facility] Comment on above: Performed By: #### L 501.2300, L500.2500 ####[facility] [address] [place], [address] Sodium [Moles/Vol] 137 mmol/L Normal 133-145 [facility] Comment on above: Performed By: #### L 501.2300, L500.2500 ####[facility] [address] [place], [address] Urea nitrogen [Mass/Vol] 58 mg/dL High 4-19 [facility] Comment on above: Performed By: #### L 501.2300, L500.2500 ####[facility] [address] [place], [address] Bedside Glucoseon 04-07-2025 FINGERSTICK GLU 272 mg/dL High 74-106 [facility] Comment on above: Result Comment: KODY GEMENT OF PATIENT CARE PER NURSING PROTOCOL Performed By: #### L 501.080 ####[facility] [address] [place], [address] FINGERSTICK GLU 249 mg/dL High 74-106 [facility] Comment on above: Result Comment: KODY GEMENT OF PATIENT CARE PER NURSING PROTOCOL Performed By: #### L 501.080 ####[facility] [address] [place], [address] FINGERSTICK GLU 303 mg/dL High 74-106 [facility] Comment on above: Result Comment: KODY GEMENT OF PATIENT CARE PER NURSING PROTOCOL Performed By: #### L 501.080 ####[facility] [address] [place], [address] FINGERSTICK GLU 162 mg/dL High 74-106 [facility] Comment on above: Result Comment: KODY GEMENT OF PATIENT CARE PER NURSING PROTOCOL Performed By: #### L 501.080 ####[facility] [address] [place], [address] CBC W/Diff, Automatedon 03-20 Absolute Lymph 0.20 X10 3/uL Low 0.83-4.51 [facility] Comment on above: Performed By: #### L 100.0100 ####[facility] [address] [place], [address] Absolute Neut 5.9 X10 3/uL Normal 2.0-7.7 [facility] Comment on above: Performed By: #### L 100.0100 ####[facility] [address] [place], [address] Basophils/100 WBC (Bld) 0.2 % Normal 0-1 [facility] Comment on above: Performed By: #### L 100.0100 ####[facility] [address] [place], [address] Eosinophils/100 WBC (Bld) 0.0 % Normal 0-5 [facility] Comment on above: Performed By: #### L 100.0100 ####[facility] [address] [place], [address] Erythrocyte distribution width (RBC) [Ratio] 17.1 % High 11.6-14.6 [facility] Comment on above: Performed By: #### L 100.0100 ####[facility] [address] [place], [address] Hematocrit (Bld) [Volume fraction] 25.6 % Low 40-54 [facility] Comment on above: Performed By: #### L 100.0100 ####[facility] [address] [place], [address] Hemoglobin (Bld) [Mass/Vol] 8.0 g/dL Low 13.0-16.5 [facility] Comment on above: Performed By: #### L 100.0100 ####[facility] [address] [place], [address] IG% 1.400 High 0.0-0.9 [facility] Comment on above: Result Comment: IG% - Immature Granulocytes (promyelocytes, myelocytes andmetamyelocytes) > 1% indicates that a LEFT SHIFT is Present. Performed By: #### L 100.0100 ####[facility] [address] [place], [address] Lymphocytes/100 WBC (Bld) 3.1 % Low 19-41 [facility] Comment on above: Performed By: #### L 100.0100 ####[facility] [address] [place], [address] MCH (RBC) [Entitic mass] 27.0 pg Normal 27.0-32.0 [facility] Comment on above: Performed By: #### L 100.0100 ####[facility] [address] [place], [address] MCHC (RBC) [Mass/Vol] 31.3 g/dL Low 32-36 [facility] Comment on above: Performed By: #### L 100.0100 ####[facility] [address] [place], [address] MCV (RBC) [Entitic vol] 86.5 fL Normal 80-94 [facility] Comment on above: Performed By: #### L 100.0100 ####[facility] [address] [place], [address] Monocytes/100 WBC (Bld) 2.5 % Normal 0-10 [facility] Comment on above: Performed By: #### L 100.0100 ####[facility] [address] [place], [address] Neutrophils/100 WBC (Bld) 92.8 % High 47-70 [facility] Comment on above: Performed By: #### L 100.0100 ####[facility] [address] [place], [address] Nucleated RBC (Bld) [#/Vol] 0 10*3/uL Normal 0-5 [facility] Comment on above: Performed By: #### L 100.0100 ####[facility] [address] [place], [address] Platelet mean volume (Bld) [Entitic vol] 10.4 fL Normal 6.2-12.0 [facility] Comment on above: Performed By: #### L 100.0100 ####[facility] [address] [place], [address] Platelets (Bld) [#/Vol] 189 10*3/uL Normal 150-450 [facility] Comment on above: Performed By: #### L 100.0100 ####[facility] [address] [place], [address] RBC (Bld) [#/Vol] 2.96 10*6/uL Low 4.6-6.2 [facility] Comment on above: Performed By: #### L 100.0100 ####[facility] [address] [place], [address] RDW SD 53.1 fl High 35.1-43.9 [facility] Comment on above: Performed By: #### L 100.0100 ####[facility] [address] [place], [address] WBC (Bld) [#/Vol] 6.4 10*3/uL Normal 4.4-11.0 [facility] Comment on above: Performed By: #### L 100.0100 ####[facility] [address] [place], [address] Electrocardiogram reportOrde red By: Issa Looney on 04-07-2025 EKG study [facility] Work Phone: Phosphoruson 04-07-2025 Phosphate [Mass/Vol] 4.6 mg/dL High 2.7-4.5 [facility] Comment on above: Performed By: #### L 501.2300, L500.2500 ####[facility] [address] [place], [address] Bedside Glucoseon 04-06-2025 FINGERSTICK GLU 378 mg/dL High 74-106 [facility] Comment on above: Result Comment: KODY GEMENT OF PATIENT CARE PER NURSING PROTOCOL Performed By: #### L 501.080 ####[facility] [address] [place], [address] FINGERSTICK GLU 168 mg/dL High 74-106 [facility] Comment on above: Result Comment: KODY GEMENT OF PATIENT CARE PER NURSING PROTOCOL Performed By: #### L 501.080 ####[facility] [address] [place], [address] FINGERSTICK GLU 140 mg/dL High 74-106 [facility] Comment on above: Result Comment: KODY GEMENT OF PATIENT CARE PER NURSING PROTOCOL Performed By: #### L 501.080 ####[facility] [address] [place], [address] FINGERSTICK GLU 116 mg/dL High 74-106 [facility] Comment on above: Result Comment: KODY GEMENT OF PATIENT CARE PER NURSING PROTOCOL Performed By: #### L 501.080 ####[facility] [address] [place], [address] FINGERSTICK GLU 112 mg/dL High 74-106 [facility] Comment on above: Result Comment: KODY STRONG OF PATIENT CARE PER NURSING PROTOCOL Performed By: #### L 501.080 ####[facility] [address] [place], [address] Bilirubin, totalOrdered By: Nicola Madison on 04-06-2025 Bilirubin [Mass/Vol] 0.40 mg/dL 0.00-1.30 [facility] CBC W/Diff, Automatedon 03-20 Absolute Lymph 0.50 X10 3/uL Low 0.83-4.51 [facility] Comment on above: Performed By: #### L 100.0100 ####[facility] [address] [place], [address] Absolute Neut 6.4 X10 3/uL Normal 2.0-7.7 [facility] Comment on above: Performed By: #### L 100.0100 ####[facility] [address] [place], [address] Basophils/100 WBC (Bld) 0.5 % Normal 0-1 [facility] Comment on above: Performed By: #### L 100.0100 ####[facility] [address] [place], [address] Eosinophils/100 WBC (Bld) 0.5 % Normal 0-5 [facility] Comment on above: Performed By: #### L 100.0100 ####[facility] [address] [place], [address] Erythrocyte distribution width (RBC) [Ratio] 16.8 % High 11.6-14.6 [facility] Comment on above: Performed By: #### L 100.0100 ####[facility] [address] [place], [address] Hematocrit (Bld) [Volume fraction] 26.3 % Low 40-54 [facility] Comment on above: Performed By: #### L 100.0100 ####[facility] [address] [place], [address] Hemoglobin (Bld) [Mass/Vol] 7.9 g/dL Low 13.0-16.5 [facility] Comment on above: Performed By: #### L 100.0100 ####[facility] [address] [place], [address] IG% 0.600 Normal 0.0-0.9 [facility] Comment on above: Result Comment: IG% - Immature Granulocytes (promyelocytes, myelocytes andmetamyelocytes) > 1% indicates that a LEFT SHIFT is Present. Performed By: #### L 100.0100 ####[facility] [address] [place], [address] Lymphocytes/100 WBC (Bld) 6.4 % Low 19-41 [facility] Comment on above: Performed By: #### L 100.0100 ####[facility] [address] [place], [address] MCH (RBC) [Entitic mass] 26.9 pg Low 27.0-32.0 [facility] Comment on above: Performed By: #### L 100.0100 ####[facility] [address] [place], [address] MCHC (RBC) [Mass/Vol] 30.0 g/dL Low 32-36 [facility] Comment on above: Performed By: #### L 100.0100 ####[facility] [address] [place], [address] MCV (RBC) [Entitic vol] 89.5 fL Normal 80-94 [facility] Comment on above: Performed By: #### L 100.0100 ####[facility] [address] [place], [address] Monocytes/100 WBC (Bld) 10.1 % High 0-10 [facility] Comment on above: Performed By: #### L 100.0100 ####[facility] [address] [place], [address] Neutrophils/100 WBC (Bld) 81.9 % High 47-70 [facility] Comment on above: Performed By: #### L 100.0100 ####[facility] [address] [place], [address] Nucleated RBC (Bld) [#/Vol] 0 10*3/uL Normal 0-5 [facility] Comment on above: Performed By: #### L 100.0100 ####[facility] [address] [place], [address] Platelet mean volume (Bld) [Entitic vol] 10.4 fL Normal 6.2-12.0 [facility] Comment on above: Performed By: #### L 100.0100 ####[facility] [address] [place], [address] Platelets (Bld) [#/Vol] 178 10*3/uL Normal 150-450 [facility] Comment on above: Performed By: #### L 100.0100 ####[facility] [address] [place], [address] RBC (Bld) [#/Vol] 2.94 10*6/uL Low 4.6-6.2 [facility] Comment on above: Performed By: #### L 100.0100 ####[facility] [address] [place], [address] RDW SD 54.7 fl High 35.1-43.9 [facility] Comment on above: Performed By: #### L 100.0100 ####[facility] [address] [place], [address] WBC (Bld) [#/Vol] 7.8 10*3/uL Normal 4.4-11.0 [facility] Comment on above: Performed By: #### L 100.0100 ####[facility] [address] [place], [address] Chest 1 View (Portable)on Chest 1 View (Portable) Normal [facility] Comprehensive Metabolic Prof ilon 04-06-2025 Albumin [Mass/Vol] 3.3 g/dL Low 3.4-4.8 [facility] Comment on above: Performed By: #### L 503.7505, L500.4050, L501.2300 ####[facility] [address] [place], [address] Albumin/Globulin [Mass ratio] 0.9 {ratio} Normal 0.9-2.4 [facility] Comment on above: Performed By: #### L 503.7505, L500.4050, L501.2300 ####[facility] [address] [place], [address] ALK PHOS 70 U/L Normal 40-129 [facility] Comment on above: Performed By: #### L 503.7505, L500.4050, L501.2300 ####[facility] [address] [place], [address] ALT [Catalytic activity/Vol] 13 U/L Normal <=46 [facility] Comment on above: Performed By: #### L 503.7505, L500.4050, L501.2300 ####[facility] [address] [place], [address] AST [Catalytic activity/Vol] 19 U/L Normal <=37 [facility] Comment on above: Performed By: #### L 503.7505, L500.4050, L501.2300 ####[facility] [address] [place], [address] Bilirubin [Mass/Vol] 0.40 mg/dL Normal 0.00-1.30 [facility] Comment on above: Performed By: #### L 503.7505, L500.4050, L501.2300 ####[facility] [address] [place], [address] BUN/CRE 22.8 RATIO High 10-20 [facility] Comment on above: Performed By: #### L 503.7505, L500.4050, L501.2300 ####[facility] [address] [place], [address] Calcium [Mass/Vol] 8.8 mg/dL Normal 7.6-11.0 [facility] Comment on above: Performed By: #### L 503.7505, L500.4050, L501.2300 ####[facility] [address] [place], [address] Chloride [Moles/Vol] 100 mmol/L Normal 98-108 [facility] Comment on above: Performed By: #### L 503.7505, L500.4050, L501.2300 ####[facility] [address] [place], [address] CO2 [Moles/Vol] 27.9 mmol/L Normal 21.0-32.0 [facility] Comment on above: Performed By: #### L 503.7505, L500.4050, L501.2300 ####[facility] [address] [place], [address] Creatinine [Mass/Vol] 2.52 mg/dL High 0.70-1.20 [facility] Comment on above: Performed By: #### L 503.7505, L500.4050, L501.2300 ####[facility] [address] [place], [address] ECRCL 22.79 ml/min Low 50-250 [facility] Comment on above: Performed By: #### L 503.7505, L500.4050, L501.2300 ####[facility] [address] [place], [address] GAP 10 Normal 5-15 [facility] Comment on above: Performed By: #### L 503.7505, L500.4050, L501.2300 ####[facility] [address] [place], [address] GFR/1.73 sq M.predicted among non-blacks MDRD (S/P/Bld) [Vol rate/Area] 25 mL/min/{1.73_m2} Low >60 [facility] Comment on above: Result Comment: mL/m in/1.73m2 CKD-EPI Creatinine Equation (2020) Performed By: #### L 503.7505, L500.4050, L501.2300 ####[facility] [address] [place], [address] Globulin (S) [Mass/Vol] 3.5 g/dL Normal 2.2-4.2 [facility] Comment on above: Performed By: #### L 503.7505, L500.4050, L501.2300 ####[facility] [address] [place], [address] Glucose [Mass/Vol] 102 mg/dL High 70-99 [facility] Comment on above: Performed By: #### L 503.7505, L500.4050, L501.2300 ####[facility] [address] [place], [address] Potassium [Moles/Vol] 4.7 mmol/L Normal 3.3-5.1 [facility] Comment on above: Performed By: #### L 503.7505, L500.4050, L501.2300 ####[facility] [address] [place], [address] Sodium [Moles/Vol] 138 mmol/L Normal 133-145 [facility] Comment on above: Performed By: #### L 503.7505, L500.4050, L501.2300 ####[facility] [address] [place], [address] T PROT 6.8 g/dL Normal 5.9-8.4 [facility] Comment on above: Performed By: #### L 503.7505, L500.4050, L501.2300 ####[facility] [address] [place], [address] Urea nitrogen [Mass/Vol] 58 mg/dL High 4-19 [facility] Comment on above: Performed By: #### L 503.7505, L500.4050, L501.2300 ####[facility] [address] [place], [address] Consultation - Nephrologyon 04-06-2025 Consultation - Nephrology Normal [facility] Kidney and Bladderon 025 Kidney and Bladder Normal [facility] Natriuretic peptide.B prohor girish N-Terminal [Mass/volume] in Serum or PlasmaOrdered By: Nicola Madison on 04-06-2025 Natriuretic peptide.B prohormone N-Terminal [Mass/Vol] 4038 pg/mL High <1800 [facility] No Panel InformationOrdered By: Nicola Madison on 04-06-2025 19 U/L <38 [facility] Phosphoruson 04-06-2025 Phosphate [Mass/Vol] 5.4 mg/dL High 2.7-4.5 [facility] Comment on above: Performed By: #### L 503.7505, L500.4050, L501.2300 ####[facility] [address] [place], [address] Pro- Brain NATRIURETIC PEPTI Adrienne 04-06-2025 Natriuretic peptide B (Bld) [Mass/Vol] 4038 pg/mL High <=1800 [facility] Comment on above: Result Comment: Hear t Failure Unlikely: < 300 pg/mLHeart Failure Likely< 50 Years: > 450 pg/mL50-75 Years: > 900 pg/mL>75 Years: > 1800 pg/mL Performed By: #### L 503.7505, L500.4050, L501.2300 ####[facility] [address] [place], [address] Protein+Creatinine Ratio,Uri neon 04-06-2025 PROT:CRE RATIO 1660 mg/g CRE High 0-200 [facility] Comment on above: Performed By: #### L 501.0900 ####[facility] [address] [place], [address] UR CREAT 32.10 mg/dL Low 39.00-259. 00 [facility] Comment on above: Performed By: #### L 501.0900 ####[facility] [address] [place], [address] RESPIRATORY PANEL MOLECULARo n 04-06-2025 RP PANEL Normal [facility] Comment on above: Performed By: #### M 100.638 ####[facility] [address] [place], [address] Random urine creatinine kingsley urement (mass/volume)Ordered By: Madeline Sarabia on 04-06-2025 Creatinine Unsp time (U) [Mass/Vol] 32.10 mg/dL Low 39.00-259. 00 [facility] Respiratory pathogens detect ion panel by molecular detection methodOrdered By: Nicola Madison on 04-06-2025 Respiratory pathogens DNA and RNA panel BRYAN+probe (Resp) [facility] Serum globulin measurementOr dered By: Nicola Madison on 04-06-2025 Globulin (S) [Mass/Vol] 3.5 g/dL 2.2-4.2 [facility] Serum or plasma alanine ortiz otransferase (ALT) measurementOrdered By: Nicola Madison on 04-06-2025 ALT [Catalytic activity/Vol] 13 U/L <47 [facility] Serum or plasma albumin kingsley urement (mass/volume)Ordered By: Nicola Madison on 04-06-2025 Albumin [Mass/Vol] 3.3 g/dL Low 3.4-4.8 [facility] Serum or plasma albumin/glob ulin mass ratioOrdered By: Nicola Madison on 04-06-2025 Albumin/Globulin [Mass ratio] 0.9 {ratio} 0.9-2.4 [facility] Serum or plasma alkaline roosevelt sphatase measurementOrdered By: Nicola Madison on 04-06-2025 ALP [Catalytic activity/Vol] 70 U/L 40-129 [facility] Total proteinOrdered By: Jacob Madison on 04-06-2025 Protein [Mass/Vol] 6.8 g/dL 5.9-8.4 [facility] Urine protein measurement (m ass/volume)Ordered By: Madeline Sarabia on 04-06-2025 Protein (U) [Mass/Vol] 53.3 mg/dL High 0.0-12.0 [facility] Comment on above: Performed By: #### L 501.0900 ####[facility] [address] [place], [address] Urine protein/creatinine mas s ratioOrdered By: Madeline Sarabia on 04-06-2025 Protein/Creatinine (U) [Mass ratio] 1660 mg/g CRE High 0-200 [facility] 12 Lead EKGon 04-05-2025 12 Lead EKG Normal [facility] Absolute lymphocyte countOrd ered By: Ld Hayes on 04-05-2025 Lymphocytes Auto (Unsp spec) [#/Vol] 0.64 10*3/uL Low 0.83-4.51 [facility] Anion gap in Serum or Plasma Ordered By: Ld Hayes on 04-05-2025 Anion gap [Moles/Vol] 11 mmol/L 5-15 [facility] Assessment of wrist artery p atency prior to arterial punctureOrdered By: Nicola Madison on 04-05-2025 Arterial patency Wrist artery --pre arterial puncture Positive [facility] Automated lymphocyte count a s percentage of total leukocytesOrdered By: Ld Samm on 04-05-2025 Lymphocytes/100 WBC Auto (Unsp spec) 7.3 % Low 19-41 [facility] BUN/creatinine ratioOrdered By: Ld Hayes on 04-05-2025 Urea nitrogen/Creatinine [Mass ratio] 23.2 mg/mg High 10-20 [facility] Basic Metabolic Profile (BMP )on 04-05-2025 BUN/CRE 23.2 RATIO High 10-20 [facility] Comment on above: Performed By: #### L 100.0100, L500.2500 ####[facility] [address] [place], [address] Calcium [Mass/Vol] 8.8 mg/dL Normal 7.6-11.0 [facility] Comment on above: Performed By: #### L 100.0100, L500.2500 ####[facility] [address] [place], [address] Chloride [Moles/Vol] 97 mmol/L Low 98-108 [facility] Comment on above: Performed By: #### L 100.0100, L500.2500 ####[facility] [address] [place], [address] CO2 [Moles/Vol] 26.7 mmol/L Normal 21.0-32.0 [facility] Comment on above: Performed By: #### L 100.0100, L500.2500 ####[facility] [address] [place], [address] Creatinine [Mass/Vol] 2.57 mg/dL High 0.70-1.20 [facility] Comment on above: Performed By: #### L 100.0100, L500.2500 ####[facility] [address], [address] ECRCL 22.62 ml/min Low 50-250 [facility] Comment on above: Performed By: #### L 100.0100, L500.2500 ####[facility] [address] [place], [address] GAP 11 Normal 5-15 [facility] Comment on above: Performed By: #### L 100.0100, L500.2500 ####[facility] [address] [place], [address] GFR/1.73 sq M.predicted among non-blacks MDRD (S/P/Bld) [Vol rate/Area] 25 mL/min/{1.73_m2} Low >60 [facility] Comment on above: Result Comment: mL/m in/1.73m2 CKD-EPI Creatinine Equation (2020) Performed By: #### L 100.0100, L500.2500 ####[facility] [address] [place], [address] Glucose [Mass/Vol] 164 mg/dL High 70-99 [facility] Comment on above: Performed By: #### L 100.0100, L500.2500 ####[facility] [address] [place], [address] Potassium [Moles/Vol] 5.8 mmol/L High 3.3-5.1 [facility] Comment on above: Result Comment: Hemo lysis present, Results??could be affected.?? Performed By: #### L 100.0100, L500.2500 ####[facility] [address] [place], [address] Sodium [Moles/Vol] 134 mmol/L Normal 133-145 [facility] Comment on above: Performed By: #### L 100.0100, L500.2500 ####[facility] [address] [place], [address] Urea nitrogen [Mass/Vol] 60 mg/dL High 4-19 [facility] Comment on above: Performed By: #### L 100.0100, L500.2500 ####[facility] [address] [place], [address] Basophil percentageOrdered B y: Ld Hayes on 04-05-2025 Basophils/100 WBC (Bld) 0.6 % 0-1 [facility] Bedside Glucoseon 04-05-2025 FINGERSTICK GLU 76 mg/dL Normal 74-106 [facility] Comment on above: Result Comment: KODY GEMENT OF PATIENT CARE PER NURSING PROTOCOL Performed By: #### L 501.080 ####[facility] [address] [place], [address] FINGERSTICK GLU 147 mg/dL High 74-106 [facility] Comment on above: Result Comment: KODY GEMENT OF PATIENT CARE PER NURSING PROTOCOL Performed By: #### L 501.080 ####[facility] [address] [place], [address] Bilirubin Test strip Ql (U)O rdered By: Nicola Madison on 04-05-2025 Bilirubin Ql (U) Negative Negative [facility] Blood Gases by CPSon 025 EMILIA TEST Positive Normal [facility] Comment on above: Performed By: #### L 9000.0800 ####[facility] [address] [place], [address] Base excess Calc (Bld) [Moles/Vol] 7 mmol/L High -2 to +2 [facility] Comment on above: Performed By: #### L 9000.0800 ####[facility] [address] [place], [address] Blood Gas Type ART Normal [facility] Comment on above: Performed By: #### L 9000.0800 ####[facility] [address] [place], [address] CO2 [Moles/Vol] 34 mmol/L Normal [facility] Comment on above: Performed By: #### L 9000.0800 ####[facility] [address] [place], [address] FI02 6.0 Normal [facility] Comment on above: Performed By: #### L 9000.0800 ####[facility] [address] [place], [address] HCO3 (Bld) [Moles/Vol] 32.4 mmol/L High 22-26 [facility] Comment on above: Performed By: #### L 9000.0800 ####[facility] [address] [place], [address] Mode Not entered [facility] Comment on above: Performed By: #### L 9000.0800 ####[facility] [address] [place], [address] O2 Delivery Dev Cannula Normal [facility] Comment on above: Performed By: #### L 9000.0800 ####[facility] [address] [place], [address] pCO2 57.1 mmHg High 35-45 [facility] Comment on above: Performed By: #### L 9000.0800 ####[facility] [address] [place], [address] pH (Bld) 7.36 [pH] Normal 7.35-7.45 [facility] Comment on above: Performed By: #### L 9000.0800 ####[facility] [address] [place], [address] PO2 71 mmHG Low 75-100 [facility] Comment on above: Performed By: #### L 9000.0800 ####[facility] [address] [place], [address] SITE R Radial Normal [facility] Comment on above: Performed By: #### L 9000.0800 ####[facility] [address] [place], [address] SO2 93 Low 95-99 [facility] Comment on above: Performed By: #### L 9000.0800 ####[facility] [address] [place], [address] Blood base excess determinat ionOrdered By: Nicola Madison on 04-05-2025 Base excess Calc (BldV) [Moles/Vol] 7 mmol/L High -2-2 [facility] Blood bicarbonate measuremen tOrdered By: Nicola Madison on 04-05-2025 HCO3 (Bld) [Moles/Vol] 32.4 mmol/L High 22-26 [facility] CBC W/Diff, Automatedon 03-20 Absolute Lymph 0.64 X10 3/uL Low 0.83-4.51 [facility] Comment on above: Performed By: #### L 100.0100, L500.2500 ####[facility] [address] [place], [address] Absolute Neut 7.0 X10 3/uL Normal 2.0-7.7 [facility] Comment on above: Performed By: #### L 100.0100, L500.2500 ####[facility] [address] [place], [address] Basophils/100 WBC (Bld) 0.6 % Normal 0-1 [facility] Comment on above: Performed By: #### L 100.0100, L500.2500 ####[facility] [address] [place], [address] Eosinophils/100 WBC (Bld) 1.0 % Normal 0-5 [facility] Comment on above: Performed By: #### L 100.0100, L500.2500 ####[facility] [address] [place], [address] Erythrocyte distribution width (RBC) [Ratio] 17.1 % High 11.6-14.6 [facility] Comment on above: Performed By: #### L 100.0100, L500.2500 ####[facility] [address] [place], [address] Hematocrit (Bld) [Volume fraction] 29.0 % Low 40-54 [facility] Comment on above: Performed By: #### L 100.0100, L500.2500 ####[facility] [address] [place], [address] Hemoglobin (Bld) [Mass/Vol] 8.9 g/dL Low 13.0-16.5 [facility] Comment on above: Performed By: #### L 100.0100, L500.2500 ####[facility] [address] [place], [address] IG% 0.700 Normal 0.0-0.9 [facility] Comment on above: Result Comment: IG% - Immature Granulocytes (promyelocytes, myelocytes andmetamyelocytes) > 1% indicates that a LEFT SHIFT is Present. Performed By: #### L 100.0100, L500.2500 ####[facility] [address] [place], [address] Lymphocytes/100 WBC (Bld) 7.3 % Low 19-41 [facility] Comment on above: Performed By: #### L 100.0100, L500.2500 ####[facility] [address] [place], [address] MCH (RBC) [Entitic mass] 27.2 pg Normal 27.0-32.0 [facility] Comment on above: Performed By: #### L 100.0100, L500.2500 ####[facility] [address] [place], [address] MCHC (RBC) [Mass/Vol] 30.7 g/dL Low 32-36 [facility] Comment on above: Performed By: #### L 100.0100, L500.2500 ####[facility] [address] [place], [address] MCV (RBC) [Entitic vol] 88.7 fL Normal 80-94 [facility] Comment on above: Performed By: #### L 100.0100, L500.2500 ####[facility] [address] [place], [address] Monocytes/100 WBC (Bld) 10.7 % High 0-10 [facility] Comment on above: Performed By: #### L 100.0100, L500.2500 ####[facility] [address] [place], [address] Neutrophils/100 WBC (Bld) 79.7 % High 47-70 [facility] Comment on above: Performed By: #### L 100.0100, L500.2500 ####[facility] [address] [place], [address] Nucleated RBC (Bld) [#/Vol] 0.2 10*3/uL Normal 0-5 [facility] Comment on above: Performed By: #### L 100.0100, L500.2500 ####[facility] [address] [place], [address] Platelet mean volume (Bld) [Entitic vol] 11.1 fL Normal 6.2-12.0 [facility] Comment on above: Performed By: #### L 100.0100, L500.2500 ####[facility] [address] [place], [address] Platelets (Bld) [#/Vol] 226 10*3/uL Normal 150-450 [facility] Comment on above: Performed By: #### L 100.0100, L500.2500 ####[facility] [address] [place], [address] RBC (Bld) [#/Vol] 3.27 10*6/uL Low 4.6-6.2 [facility] Comment on above: Performed By: #### L 100.0100, L500.2500 ####[facility] [address] [place], [address] RDW SD 55.5 fl High 35.1-43.9 [facility] Comment on above: Performed By: #### L 100.0100, L500.2500 ####[facility] [address] [place], [address] WBC (Bld) [#/Vol] 8.7 10*3/uL Normal 4.4-11.0 [facility] Comment on above: Performed By: #### L 100.0100, L500.2500 ####[facility] [address] [place], [address] Carbon dioxide, total [Moles /volume] in Central venous bloodOrdered By: Ld Hayes on 04-05-2025 CO2 [Moles/Vol] 26.7 mmol/L 21.0-32.0 [facility] Chest PA and Lateralon 04-05 Chest PA and Lateral Normal [facility] Chloride assayOrdered By: Sky Hayes on 04-05-2025 Chloride [Moles/Vol] 97 mmol/L Low 98-108 [facility] Emergency Department Summary on 04-05-2025 Emergency Department Summary Normal [facility] Eosinophil percentageOrdered By: Ld Hayes on 04-05-2025 Eosinophils/100 WBC (Bld) 1.0 % 0-5 [facility] Erythrocyte distribution wid th ratioOrdered By: Ld Hayes on 04-05-2025 Erythrocyte distribution width (RBC) [Ratio] 17.1 % High 11.6-14.6 [facility] Erythrocyte distribution wid th standard deviationOrdered By: Ld Hayes on 04-05-2025 Erythrocyte distribution width (RBC) [Ratio] 55.5 fl High 35.1-43.9 [facility] Glomerular filtration rate ( GFR) estimation/1.73 sq m using serum, plasma, or whole bOrdered By: Ld Hayes on 04-05-2025 GFR/1.73 sq M.predicted among non-blacks MDRD (S/P/Bld) [Vol rate/Area] 25 mL/min/{1.73_m2} Low >60 [facility] Gl[facility] at [facility] deOrdered By: Ld Hayes on 04-05-2025 Glucose [Mass/Vol] 147 mg/dL High 74-106 [facility] H AND P Exam - Hospitaliston 04-05-2025 H&P Exam - Hospitalist Normal [facility] Hematocrit Auto (Bld) [Volum e fraction]Ordered By: Ld Hayes on 04-05-2025 Hematocrit (Bld) [Volume fraction] 29.0 % Low 40-54 [facility] Hemoglobin measurementOrdere d By: Ld Hayes on 04-05-2025 Hemoglobin (Bld) [Mass/Vol] 8.9 g/dL Low 13.0-16.5 [facility] Immature granulocytes/100 WB C Auto (Bld)Ordered By: Ld Hayes on 04-05-2025 Immature granulocytes/100 WBC (Bld) 0.700 % 0.0-0.9 [facility] Influenza virus A and B and SARS-CoV-2 (COVID-19) and Respiratory syncytial virus RNAOrdered By: Ld Hayes on 04-05-2025 SARS-CoV-2 (COVID-19) RNA BRYAN+probe Ql (Unsp spec) [facility] Ketones Test strip Ql (U)Ord ered By: Nicola Madison on 04-05-2025 Ketones Ql (U) Negative Negative [facility] L501.4021on 04-05-2025 Trop T High Sen 64 ng/L Invalid Interpretation Code <=22 [facility] Comment on above: Result Comment: Crit ical Result(s) Called AMYCRUZITO at: 1805 by:RIVERA??Results read back by same. Performed By: #### L 501.4022 ####[facility] [address] [place], [address] M100.678on 04-05-2025 M100.678 SARS-CoV-2 (COVID 19 ) Negative INFLUENZA A Negative INFLUENZA B Negative RSV PCR Negative Normal [facility] Comment on above: Performed By: #### M 100.678 ####[facility] [address] [facility] [place], [place], [address] MCV (mean corpuscular volume ) determinationOrdered By: Ld Hayes on 04-05-2025 MCV (RBC) [Entitic vol] 88.7 fL 80-94 [facility] Magnesiumon 04-05-2025 Magnesium [Mass/Vol] 2.5 mg/dL High 1.5-2.2 [facility] Comment on above: Performed By: #### L 501.9520, L501.5200 ####[facility] [address] [facility] [place], [place], [id number] Magnesium measurement (mass/ volume)Ordered By: Nicola Madison on 04-05-2025 Magnesium (Unsp spec) [Mass/Vol] 2.5 mg/dL High 1.5-2.2 [facility] Mean corpuscular hemoglobin (MCH) determinationOrdered By: Ld Hayes on 04-05-2025 MCH (RBC) [Entitic mass] 27.2 pg 27.0-32.0 [facility] Measurement, pHOrdered By: Sarah Madison on 04-05-2025 pH (Unsp spec) 7.36 [pH] 7.35-7.45 [facility] Monocyte percentageOrdered B y: Ld Hayes on 04-05-2025 Monocytes/100 WBC (Bld) 10.7 % High 0-10 [facility] Mucus LM Ql (Urine sed)Order ed By: Nicola Madison on 04-05-2025 Mucus Ql (Urine sed) 0 SEEN /hpf [facility] Natriuretic peptide.B prohor girish N-Terminal [Mass/volume] in Serum or PlasmaOrdered By: Ld Hayes on 04-05-2025 Natriuretic peptide.B prohormone N-Terminal [Mass/Vol] 4003 pg/mL High <1800 [facility] Neutrophil percentageOrdered By: Ld Hayes on 04-05-2025 Neutrophils/100 WBC (Bld) 79.7 % High 47-70 [facility] Nitrite Test strip Ql (U)Ord ered By: Nicola Madison on 04-05-2025 Nitrite Ql (U) Negative Negative [facility] No Panel InformationOrdered By: Nicola Madison on 04-05-2025 ART [facility] R Radial [facility] Not entered [facility] Cannula [facility] Platelet countOrdered By: Sky Hayes on 04-05-2025 Platelets (Bld) [#/Vol] 226 10*3/uL 150-450 [facility] Potassium measurement (mass/ volume)Ordered By: Ld Hayes on 04-05-2025 Potassium (Unsp spec) [Mass/Vol] 5.8 mmol/L High 3.3-5.1 [facility] Pro- Brain NATRIURETIC PEPTI Adrienne 04-05-2025 Natriuretic peptide B (Bld) [Mass/Vol] 4003 pg/mL High <=1800 [facility] Comment on above: Result Comment: Hear t Failure Unlikely: < 300 pg/mLHeart Failure Likely< 50 Years: > 450 pg/mL50-75 Years: > 900 pg/mL>75 Years: > 1800 pg/mL Performed By: #### L 503.750 ####[facility] [address] [place], [address] Protein Test strip Ql (U)Ord ered By: Nicola Madison on 04-05-2025 Protein Ql (U) 100 mg/dl High Negative [facility] RBC Auto (Bld) [#/Vol]Ordere d By: Ld Hayes on 04-05-2025 RBC (Bld) [#/Vol] 3.27 10*6/uL Low 4.6-6.2 [facility] Serum creatinine measurement (mass/volume)Ordered By: Ld Hayes on 04-05-2025 Creatinine [Mass/Vol] 2.57 mg/dL High 0.70-1.20 [facility] Serum glucose measurement (m ass/volume)Ordered By: Ld Hayes on 04-05-2025 Glucose [Mass/Vol] 164 mg/dL High 70-99 [facility] Serum or plasma calcium kingsley urement (mass/volume)Ordered By: Ld Hayes on 04-05-2025 Calcium [Mass/Vol] 8.8 mg/dL 7.6-11.0 [facility] Serum or plasma urea nitroge n measurement (mass/volume)Ordered By: Ld Hayes on 04-05-2025 Urea nitrogen [Mass/Vol] 60 mg/dL High 4-19 [facility] Sodium levelOrdered By: Ld Hayes on 04-05-2025 Sodium [Moles/Vol] 134 mmol/L 133-145 [facility] Squamous epithelial cells de tection in urine sediment by light microscopyOrdered By: Nicola Madison on 04-05-2025 Epithelial cells.squamous LM Ql (Urine sed) 0-5 SEEN /hpf 0-5 [facility] TSH DL <= 0.005 mIU/L QnOrde red By: Nicola Madison on 04-05-2025 TSH Qn 3.830 uIU/mL 0.300-4.20 0 [facility] Thyroid Stim Hormone (TSH)on 04-05-2025 TSH 3.830 uIU/mL Normal 0.300-4.20 0 [facility] Comment on above: Performed By: #### L 501.9520, L501.5200 ####[facility] [address] [facility] [place], [place], [address] Total carbon dioxide measure mentOrdered By: Nicola Madison on 04-05-2025 CO2 [Moles/Vol] 34 mmol/L [facility] Troponin T HS 2 HRon 025 Trop T High Sen 62 ng/L Invalid Interpretation Code <=22 [facility] Comment on above: Result Comment: Crit ical Result(s) Called LSPARR at:2002 by:RIVERA??Results read back by same. Performed By: #### L 499.0042 ####[facility] [address] [place], [place], [id number] Troponin T HS 4 HRon 025 Trop T High Sen 60 ng/L Invalid Interpretation Code <=22 [facility] Comment on above: Result Comment: Crit ical Result(s) Called MIGUELINA OCHOA at: 2138 by:RIVERA??Results read back by same. Performed By: #### L 499.0043 ####[facility] [address] [place], [address] Troponin T.cardiac [Mass/vol ume] in Serum or Plasma by High sensitivity methodOrdered By: Ld Hayes on 04-05-2025 Troponin T.cardiac High sensitivity method [Mass/Vol] 60 ng/L High <22 [facility] Troponin T.cardiac High sensitivity method [Mass/Vol] 62 ng/L High <22 [facility] Troponin T.cardiac High sensitivity method [Mass/Vol] 64 ng/L High <22 [facility] Urinalysis, Completeon 04-05 BACTERIA 2+ /hpf Normal None Seen [facility] Comment on above: Order Comment: CLEAN CATCH Performed By: #### L 400.0001 ####[facility] [address] [place], [address] EPI,SQUAMOUS 0-5 SEEN Normal 0-5 [facility] Comment on above: Order Comment: CLEAN CATCH Performed By: #### L 400.0001 ####[facility] [address] [place], [address] RBC 0-5 SEEN Normal 0-5 [facility] Comment on above: Order Comment: CLEAN CATCH Performed By: #### L 400.0001 ####[facility] [address] [place], [address] WBC 5-10 SEEN Normal 0-5 [facility] Comment on above: Order Comment: CLEAN CATCH Performed By: #### L 400.0001 ####[facility] [address] [place], [address] Mucus Ql (Urine sed) 0 SEEN Normal [facility] Comment on above: Order Comment: CLEAN CATCH Performed By: #### L 400.0001 ####[facility] [address] [facility] [address] Urine clarityOrdered By: Jacob Madison on 04-05-2025 Clarity (U) Clear Clear [facility] Urine color determinationOrd ered By: Nicola Madison on 04-05-2025 Color (U) Yellow Yellow [facility] Urine glucose detectionOrder ed By: Nicola Madison on 04-05-2025 Glucose Ql (U) Normal mg/dl Normal [facility] Urine leukocyte esterase det ection by dipstickOrdered By: Nicola Madison on 04-05-2025 Leukocyte esterase Test strip Ql (U) 500 /ul High Negative [facility] Urine pHOrdered By: Nicola stack on 04-05-2025 pH (U) 5.0 [pH] 5.0 - 8.0 [facility] Urine sediment bacteria coun t by microscopy (number/high power field)Ordered By: Nicola Madison on 04-05-2025 Bacteria LM.HPF (Urine sed) [#/Area] 2 /[HPF] None Seen [facility] Urine specific gravity measu rementOrdered By: Nicola Madison on 04-05-2025 Specific gravity (U) [Rel density] 1.015 1.002-1.03 0 [facility] Urine urobilinogen measureme ntOrdered By: Nicola Madison on 04-05-2025 Urobilinogen Ql (U) Normal mg/dl Normal [facility] White blood cell (WBC) count Ordered By: Ld Hayes on 04-05-2025 WBC (Bld) [#/Vol] 8.7 10*3/uL 4.4-11.0 [facility] White blood cell countOrdere d By: Nicola Madison on 04-05-2025 White blood cell count 5-10 SEEN /hpf 0-5 [facility] Absolute lymphocyte countOrd ered By: Leslie Arriaga on 04-02-2025 Lymphocytes Auto (Unsp spec) [#/Vol] 0.87 10*3/uL 0.83-4.51 [facility] Absolute neutrophil countOrd ered By: Leslie Arriaga on 04-02-2025 Neutrophils (Bld) [#/Vol] 6.9 10*3/uL 2.0-7.7 [facility] Anion gap in Serum or Plasma Ordered By: Leslie Arriaga on 04-02-2025 Anion gap [Moles/Vol] 10 mmol/L - [facility] Automated lymphocyte count a s percentage of total leukocytesOrdered By: Leslie Arriaga on 04-02-2025 Lymphocytes/100 WBC Auto (Unsp spec) 10.0 % Low - [facility] BUN/creatinine ratioOrdered By: Leslie Arriaga on 04-02-2025 Urea nitrogen/Creatinine [Mass ratio] 16.4 mg/mg - [facility] Basic Metabolic Profile (BMP )on 04-02-2025 BUN/CRE 16.4 RATIO Normal - [facility] Comment on above: Order Comment: Comme nts: [facility] to [facility]Home [facility] Performed By: #### L 100.0100, L503.7505, L500.2500 ####[facility] [address] [place], [address] Calcium [Mass/Vol] 9.2 mg/dL Normal 7.6-11.0 [facility] Comment on above: Order Comment: Comme nts: [facility] Health to [facility] TomorrowHome [facility] to [facility] Tomorrow Performed By: #### L 100.0100, L503.7505, L500.2500 ####[facility] [address] [place], [address] Chloride [Moles/Vol] 99 mmol/L Normal 98-108 [facility] Comment on above: Order Comment: Comme nts: [facility] Health to Draw TomorrowHome [facility] to [facility] Tomorrow Performed By: #### L 100.0100, L503.7505, L500.2500 ####[facility] [address] [place], [address] CO2 [Moles/Vol] 27.8 mmol/L Normal 21.0-32.0 [facility] Comment on above: Order Comment: Comme nts: [facility] Health to Draw TomorrowHome [facility] to Draw Tomorrow Performed By: #### L 100.0100, L503.7505, L500.2500 ####[facility] [address] [place], [address] Creatinine [Mass/Vol] 2.13 mg/dL High 0.70-1.20 [facility] Comment on above: Order Comment: Comme nts: Home Health to Draw TomorrowHome [facility] to Draw Tomorrow Performed By: #### L 100.0100, L503.7505, L500.2500 ####[facility] [address] [place], [address] GAP 10 Normal 5-15 [facility] Comment on above: Order Comment: Comme nts: Home Health to Draw TomorrowHome Health to Draw Tomorrow Performed By: #### L 100.0100, L503.7505, L500.2500 ####[facility] [address] [place], [address] GFR/1.73 sq M.predicted among non-blacks MDRD (S/P/Bld) [Vol rate/Area] 31 mL/min/{1.73_m2} Low >60 [facility] Comment on above: Order Comment: Comme nts: Home Health to Draw TomorrowHome [facility] to [facility] Tomorrow Result Comment: mL/m in/1.73m2 CKD-EPI Creatinine Equation (2020) Performed By: #### L 100.0100, L503.7505, L500.2500 ####[facility] [address] [place], [address] Glucose [Mass/Vol] 185 mg/dL High 70-99 [facility] Comment on above: Order Comment: Comme nts: Home Health to Draw TomorrowHome Health to Draw Tomorrow Performed By: #### L 100.0100, L503.7505, L500.2500 ####[facility] [address] [place], [address] Potassium [Moles/Vol] 5.6 mmol/L High 3.3-5.1 [facility] Comment on above: Order Comment: Comme nts: Home Health to Draw TomorrowHome [facility] to Draw Tomorrow Performed By: #### L 100.0100, L503.7505, L500.2500 ####[facility] [address] [place], [address] Sodium [Moles/Vol] 137 mmol/L Normal 133-145 [facility] Comment on above: Order Comment: Comme nts: Home Health to Draw TomorrowHome Health to Draw Tomorrow Performed By: #### L 100.0100, L503.7505, L500.2500 ####[facility] [address] [place], [address] Urea nitrogen [Mass/Vol] 35 mg/dL High 4-19 [facility] Comment on above: Order Comment: Comme nts: Home Health to Draw TomorrowHome [facility] to Draw Tomorrow Performed By: #### L 100.0100, L503.7505, L500.2500 ####[facility] [address] [place], [address] Basophil percentageOrdered B y: Leslie Arriaga on 04-02-2025 Basophils/100 WBC (Bld) 0.3 % 0-1 [facility] CBC W/Diff, Automatedon 03-20 Absolute Lymph 0.87 X10 3/uL Normal 0.83-4.51 [facility] Comment on above: Order Comment: Comme nts: Home Health to Draw Tomorrow Performed By: #### L 100.0100, L503.7505, L500.2500 ####[facility] [address] [place], [address] Absolute Neut 6.9 X10 3/uL Normal 2.0-7.7 [facility] Comment on above: Order Comment: Comme nts: Home Health to Draw Tomorrow Performed By: #### L 100.0100, L503.7505, L500.2500 ####[facility] [address] [place], [address] Basophils/100 WBC (Bld) 0.3 % Normal 0-1 [facility] Comment on above: Order Comment: Comme nts: Home Health to Draw Tomorrow Performed By: #### L 100.0100, L503.7505, L500.2500 ####[facility] [address] [place], [address] Eosinophils/100 WBC (Bld) 0.8 % Normal 0-5 [facility] Comment on above: Order Comment: Comme nts: Home Health to Draw Tomorrow Performed By: #### L 100.0100, L503.7505, L500.2500 ####[facility] [address] [place], [address] Erythrocyte distribution width (RBC) [Ratio] 17.1 % High 11.6-14.6 [facility] Comment on above: Order Comment: Comme nts: Home Health to Draw Tomorrow Performed By: #### L 100.0100, L503.7505, L500.2500 ####[facility] [address] [place], [address] Hematocrit (Bld) [Volume fraction] 30.6 % Low 40-54 [facility] Comment on above: Order Comment: Comme nts: Home Health to Draw Tomorrow Performed By: #### L 100.0100, L503.7505, L500.2500 ####[facility] [address] [place], [address] Hemoglobin (Bld) [Mass/Vol] 9.2 g/dL Low 13.0-16.5 [facility] Comment on above: Order Comment: Comme nts: Home Health to Draw Tomorrow Performed By: #### L 100.0100, L503.7505, L500.2500 ####[facility] [address] [place], [address] IG% 0.600 Normal 0.0-0.9 [facility] Comment on above: Order Comment: Comme nts: Home Health to Draw Tomorrow Result Comment: IG% - Immature Granulocytes (promyelocytes, myelocytes andmetamyelocytes) > 1% indicates that a LEFT SHIFT is Present. Performed By: #### L 100.0100, L503.7505, L500.2500 ####[facility] [address] [place], [address] Lymphocytes/100 WBC (Bld) 10.0 % Low 19-41 [facility] Comment on above: Order Comment: Comme nts: Home Health to Draw Tomorrow Performed By: #### L 100.0100, L503.7505, L500.2500 ####[facility] [address] [place], [address] MCH (RBC) [Entitic mass] 26.8 pg Low 27.0-32.0 [facility] Comment on above: Order Comment: Comme nts: Home Health to Draw Tomorrow Performed By: #### L 100.0100, L503.7505, L500.2500 ####[facility] [address] [place], [address] MCHC (RBC) [Mass/Vol] 30.1 g/dL Low 32-36 [facility] Comment on above: Order Comment: Comme nts: Home Health to Draw Tomorrow Performed By: #### L 100.0100, L503.7505, L500.2500 ####[facility] [address] [place], [address] MCV (RBC) [Entitic vol] 89.2 fL Normal 80-94 [facility] Comment on above: Order Comment: Comme nts: Home Health to Draw Tomorrow Performed By: #### L 100.0100, L503.7505, L500.2500 ####[facility] [address] [place], [address] Monocytes/100 WBC (Bld) 8.9 % Normal 0-10 [facility] Comment on above: Order Comment: Comme nts: Home Health to Draw Tomorrow Performed By: #### L 100.0100, L503.7505, L500.2500 ####[facility] [address] [place], [address] Neutrophils/100 WBC (Bld) 79.4 % High 47-70 [facility] Comment on above: Order Comment: Comme nts: Home Health to Draw Tomorrow Performed By: #### L 100.0100, L503.7505, L500.2500 ####[facility] [address] [place], [address] Nucleated RBC (Bld) [#/Vol] 0 10*3/uL Normal 0-5 [facility] Comment on above: Order Comment: Comme nts: Home Health to Draw Tomorrow Performed By: #### L 100.0100, L503.7505, L500.2500 ####[facility] [address] [place], [address] Platelet mean volume (Bld) [Entitic vol] 10.6 fL Normal 6.2-12.0 [facility] Comment on above: Order Comment: Comme nts: Home Health to Draw Tomorrow Performed By: #### L 100.0100, L503.7505, L500.2500 ####[facility] [address] [place], [address] Platelets (Bld) [#/Vol] 210 10*3/uL Normal 150-450 [facility] Comment on above: Order Comment: Comme nts: Home Health to Draw Tomorrow Performed By: #### L 100.0100, L503.7505, L500.2500 ####[facility] [address] [place], [address] RBC (Bld) [#/Vol] 3.43 10*6/uL Low 4.6-6.2 [facility] Comment on above: Order Comment: Comme nts: Home Health to Draw Tomorrow Performed By: #### L 100.0100, L503.7505, L500.2500 ####[facility] [address] [place], [address] RDW SD 55.3 fl High 35.1-43.9 [facility] Comment on above: Order Comment: Comme nts: Home Health to Draw Tomorrow Performed By: #### L 100.0100, L503.7505, L500.2500 ####[facility] [address] [place], [address] WBC (Bld) [#/Vol] 8.7 10*3/uL Normal 4.4-11.0 [facility] Comment on above: Order Comment: Comme nts: Home Health to Draw Tomorrow Performed By: #### L 100.0100, L503.7505, L500.2500 ####[facility] [address] [place], [address] Carbon dioxide, total [Moles /volume] in Central venous bloodOrdered By: Leslie Arriaga on 04-02-2025 CO2 [Moles/Vol] 27.8 mmol/L 21.0-32.0 [facility] Chloride assayOrdered By: Linsey Arriaga on 04-02-2025 Chloride [Moles/Vol] 99 mmol/L 98-108 [facility] Eosinophil percentageOrdered By: Leslie Arriaga on 04-02-2025 Eosinophils/100 WBC (Bld) 0.8 % 0-5 [facility] Erythrocyte distribution wid th ratioOrdered By: Leslie Arriaga on 04-02-2025 Erythrocyte distribution width (RBC) [Ratio] 17.1 % High 11.6-14.6 [facility] Erythrocyte distribution wid th standard deviationOrdered By: Leslie Arriaga on 04-02-2025 Erythrocyte distribution width (RBC) [Ratio] 55.3 fl High 35.1-43.9 [facility] Glomerular filtration rate ( GFR) estimation/1.73 sq m using serum, plasma, or whole bOrdered By: Leslie Arriaga on 04-02-2025 GFR/1.73 sq M.predicted among non-blacks MDRD (S/P/Bld) [Vol rate/Area] 31 mL/min/{1.73_m2} Low >60 [facility] Comment on above: mL/min/1.73m2 CKD-EP I Creatinine Equation (2020) Hematocrit Auto (Bld) [Volum e fraction]Ordered By: Leslie Arriaga on 04-02-2025 Hematocrit (Bld) [Volume fraction] 30.6 % Low 40-54 [facility] Hemoglobin measurementOrdere d By: Leslie Arriaga on 04-02-2025 Hemoglobin (Bld) [Mass/Vol] 9.2 g/dL Low 13.0-16.5 [facility] Immature granulocytes/100 WB C Auto (Bld)Ordered By: Leslie Arriaga on 04-02-2025 Immature granulocytes/100 WBC (Bld) 0.600 % 0.0-0.9 [facility] Comment on above: IG% - Immature Granu locytes (promyelocytes, myelocytes and metamyelocytes) > 1% indicates that a LEFT SHIFT is Present. MCV (mean corpuscular volume ) determinationOrdered By: Leslie Arriaga on 04-02-2025 MCV (RBC) [Entitic vol] 89.2 fL 80-94 [facility] Mean corpuscular hemoglobin (MCH) determinationOrdered By: Leslie Arriaga on 04-02-2025 MCH (RBC) [Entitic mass] 26.8 pg Low 27.0-32.0 [facility] Mean corpuscular hemoglobin concentration (MCHC) determinationOrdered By: Leslie Arriaga on 04-02-2025 MCHC (RBC) [Mass/Vol] 30.1 g/dL Low 32-36 [facility] Mean platelet volume determi nationOrdered By: Leslie Arriaga on 04-02-2025 Platelet mean volume (Bld) [Entitic vol] 10.6 fL 6.2-12.0 [facility] Monocyte percentageOrdered B y: Leslie Arriaga on 04-02-2025 Monocytes/100 WBC (Bld) 8.9 % 0-10 [facility] Natriuretic peptide.B prohor girish N-Terminal [Mass/volume] in Serum or PlasmaOrdered By: Leslie Arriaga on 04-02-2025 Natriuretic peptide.B prohormone N-Terminal [Mass/Vol] 2526 pg/mL High <1800 [facility] Comment on above: Heart Failure Unlike ly: < 300 pg/mLHeart Failure Likely< 50 Years: > 450 pg/mL50-75 Years: > 900 pg/mL>75 Years: > 1800 pg/mL Neutrophil percentageOrdered By: Leslie Arriaga on 04-02-2025 Neutrophils/100 WBC (Bld) 79.4 % High 47-70 [facility] Nucleated red blood cell per centageOrdered By: Leslie Arriaga on 04-02-2025 Nucleated RBC/100 WBC (Bld) [Ratio] 0 % 0-5 [facility] Platelet countOrdered By: Linsey Arriaga on 04-02-2025 Platelets (Bld) [#/Vol] 210 10*3/uL 150-450 [facility] Potassium measurement (mass/ volume)Ordered By: Leslie Arriaga on 04-02-2025 Potassium (Unsp spec) [Mass/Vol] 5.6 mmol/L High 3.3-5.1 [facility] Pro- Brain NATRIURETIC PEPTI Adrienne 04-02-2025 Natriuretic peptide B (Bld) [Mass/Vol] 2526 pg/mL High <=1800 [facility] Comment on above: Order Comment: Comme nts: Home Health to Draw Tomorrow Result Comment: Hear t Failure Unlikely: < 300 pg/mLHeart Failure Likely< 50 Years: > 450 pg/mL50-75 Years: > 900 pg/mL>75 Years: > 1800 pg/mL Performed By: #### L 100.0100, L503.7505, L500.2500 ####[facility] [address] [place], [address] RBC Auto (Bld) [#/Vol]Ordere d By: Leslie Arriaga on 04-02-2025 RBC (Bld) [#/Vol] 3.43 10*6/uL Low 4.6-6.2 [facility] Serum creatinine measurement (mass/volume)Ordered By: Leslie Arriaga on 04-02-2025 Creatinine [Mass/Vol] 2.13 mg/dL High 0.70-1.20 [facility] Serum glucose measurement (m ass/volume)Ordered By: Leslie Arriaga on 04-02-2025 Glucose [Mass/Vol] 185 mg/dL High 70-99 [facility] Serum or plasma calcium kingsley urement (mass/volume)Ordered By: Leslie Arriaga on 04-02-2025 Calcium [Mass/Vol] 9.2 mg/dL 7.6-11.0 [facility] Serum or plasma urea nitroge n measurement (mass/volume)Ordered By: Leslie Arriaga on 04-02-2025 Urea nitrogen [Mass/Vol] 35 mg/dL High 4-19 [facility] Sodium levelOrdered By: Brian Arriaga on 04-02-2025 Sodium [Moles/Vol] 137 mmol/L 133-145 [facility] White blood cell (WBC) count Ordered By: Leslie Arriaga on 04-02-2025 WBC (Bld) [#/Vol] 8.7 10*3/uL 4.4-11.0 [facility] Absolute lymphocyte countOrd ered By: Tonio Fajardo on 03-18-2025 Lymphocytes Auto (Unsp spec) [#/Vol] 0.88 10*3/uL 0.83-4.51 [facility] Absolute neutrophil countOrd ered By: Tonio Fajardo on 03-18-2025 Neutrophils (Bld) [#/Vol] 5.9 10*3/uL 2.0-7.7 [facility] Anion gap in Serum or Plasma Ordered By: Tonio Fajardo on 03-18-2025 Anion gap [Moles/Vol] 11 mmol/L 5-15 [facility] Automated lymphocyte count a s percentage of total leukocytesOrdered By: Tonio Fajardo on 03-18-2025 Lymphocytes/100 WBC Auto (Unsp spec) 11.2 % Low 19-41 [facility] BUN/creatinine ratioOrdered By: Tonio Fajardo on 03-18-2025 Urea nitrogen/Creatinine [Mass ratio] 14.8 mg/mg - [facility] Basic Metabolic Profile (BMP )on 03-18-2025 BUN/CRE 14.8 RATIO Normal - [facility] Comment on above: Performed By: #### L 500.2500, L100.0100 ####[facility] [address] [place], [address] Calcium [Mass/Vol] 9.5 mg/dL Normal 7.6-11.0 [facility] Comment on above: Performed By: #### L 500.2500, L100.0100 ####[facility] [address] [place], [address] Chloride [Moles/Vol] 99 mmol/L Normal 98-108 [facility] Comment on above: Performed By: #### L 500.2500, L100.0100 ####[facility] [address] [place], [address] CO2 [Moles/Vol] 26.7 mmol/L Normal 21.0-32.0 [facility] Comment on above: Performed By: #### L 500.2500, L100.0100 ####[facility] [address] [place], [address] Creatinine [Mass/Vol] 1.59 mg/dL High 0.70-1.20 [facility] Comment on above: Performed By: #### L 500.2500, L100.0100 ####[facility] [address] [place], [address] GAP 11 Normal 5-15 [facility] Comment on above: Performed By: #### L 500.2500, L100.0100 ####[facility] [address] [place], [address] GFR/1.73 sq M.predicted among non-blacks MDRD (S/P/Bld) [Vol rate/Area] 44 mL/min/{1.73_m2} Low >60 [facility] Comment on above: Result Comment: mL/m in/1.73m2 CKD-EPI Creatinine Equation (2020) Performed By: #### L 500.2500, L100.0100 ####[facility] [address] [place], [address] Glucose [Mass/Vol] 223 mg/dL High 70-99 [facility] Comment on above: Performed By: #### L 500.2500, L100.0100 ####[facility] [address] [place], [address] Potassium [Moles/Vol] 5.2 mmol/L High 3.3-5.1 [facility] Comment on above: Performed By: #### L 500.2500, L100.0100 ####[facility] [address] [place], [address] Sodium [Moles/Vol] 137 mmol/L Normal 133-145 [facility] Comment on above: Performed By: #### L 500.2500, L100.0100 ####[facility] [address] [place], [address] Urea nitrogen [Mass/Vol] 24 mg/dL High 4-19 [facility] Comment on above: Performed By: #### L 500.2500, L100.0100 ####[facility] [address] [place], [address] Basophil percentageOrdered B y: Tonio [place]otty on 03-18-2025 Basophils/100 WBC (Bld) 0.5 % 0-1 [facility] CBC W/Diff, Automatedon 02-19 Absolute Lymph 0.88 X10 3/uL Normal 0.83-4.51 [facility] Comment on above: Performed By: #### L 500.2500, L100.0100 ####[facility] [address] [place], [address] Absolute Neut 5.9 X10 3/uL Normal 2.0-7.7 [facility] Comment on above: Performed By: #### L 500.2500, L100.0100 ####[facility] [address] [place], [address] Basophils/100 WBC (Bld) 0.5 % Normal 0-1 [facility] Comment on above: Performed By: #### L 500.2500, L100.0100 ####[facility] [address] [place], [address] Eosinophils/100 WBC (Bld) 3.1 % Normal 0-5 [facility] Comment on above: Performed By: #### L 500.2500, L100.0100 ####[facility] [address] [place], [address] Erythrocyte distribution width (RBC) [Ratio] 16.4 % High 11.6-14.6 [facility] Comment on above: Performed By: #### L 500.2500, L100.0100 ####[facility] [address] [place], [address] Hematocrit (Bld) [Volume fraction] 32.6 % Low 40-54 [facility] Comment on above: Performed By: #### L 500.2500, L100.0100 ####[facility] [address] [place], [address] Hemoglobin (Bld) [Mass/Vol] 9.7 g/dL Low 13.0-16.5 [facility] Comment on above: Performed By: #### L 500.2500, L100.0100 ####[facility] [address] [place], [address] IG% 1.100 High 0.0-0.9 [facility] Comment on above: Result Comment: IG% - Immature Granulocytes (promyelocytes, myelocytes andmetamyelocytes) > 1% indicates that a LEFT SHIFT is Present. Performed By: #### L 500.2500, L100.0100 ####[facility] [address] [place], [address] Lymphocytes/100 WBC (Bld) 11.2 % Low 19-41 [facility] Comment on above: Performed By: #### L 500.2500, L100.0100 ####[facility] [address] [place], [address] MCH (RBC) [Entitic mass] 26.8 pg Low 27.0-32.0 [facility] Comment on above: Performed By: #### L 500.2500, L100.0100 ####[facility] [address] [place], [address] MCHC (RBC) [Mass/Vol] 29.8 g/dL Low 32-36 [facility] Comment on above: Performed By: #### L 500.2500, L100.0100 ####[facility] [address] [place], [address] MCV (RBC) [Entitic vol] 90.1 fL Normal 80-94 [facility] Comment on above: Performed By: #### L 500.2500, L100.0100 ####[facility] [address] [place], [address] Monocytes/100 WBC (Bld) 9.4 % Normal 0-10 [facility] Comment on above: Performed By: #### L 500.2500, L100.0100 ####[facility] [address] [place], [address] Neutrophils/100 WBC (Bld) 74.7 % High 47-70 [facility] Comment on above: Performed By: #### L 500.2500, L100.0100 ####[facility] [address] [place], [address] Nucleated RBC (Bld) [#/Vol] 0 10*3/uL Normal 0-5 [facility] Comment on above: Performed By: #### L 500.2500, L100.0100 ####[facility] [address] [place], [address] Platelet mean volume (Bld) [Entitic vol] 10.4 fL Normal 6.2-12.0 [facility] Comment on above: Performed By: #### L 500.2500, L100.0100 ####[facility] [address] [place], [address] Platelets (Bld) [#/Vol] 252 10*3/uL Normal 150-450 [facility] Comment on above: Performed By: #### L 500.2500, L100.0100 ####[facility] [address] [place], [address] RBC (Bld) [#/Vol] 3.62 10*6/uL Low 4.6-6.2 [facility] Comment on above: Performed By: #### L 500.2500, L100.0100 ####[facility] [address] [place], [address] RDW SD 53.8 fl High 35.1-43.9 [facility] Comment on above: Performed By: #### L 500.2500, L100.0100 ####[facility] [address] [place], [address] WBC (Bld) [#/Vol] 7.9 10*3/uL Normal 4.4-11.0 [facility] Comment on above: Performed By: #### L 500.2500, L100.0100 ####[facility] [address] [place], [address] Carbon dioxide, total [Moles /volume] in Central venous bloodOrdered By: Tonio Fajardo on 03-18-2025 CO2 [Moles/Vol] 26.7 mmol/L 21.0-32.0 [facility] Chloride assayOrdered By: Min Fajardo on 03-18-2025 Chloride [Moles/Vol] 99 mmol/L 98-108 [facility] Eosinophil percentageOrdered By: Tonio Fajardo on 03-18-2025 Eosinophils/100 WBC (Bld) 3.1 % 0-5 [facility] Erythrocyte distribution wid th ratioOrdered By: Tonio Fajardo on 03-18-2025 Erythrocyte distribution width (RBC) [Ratio] 16.4 % High 11.6-14.6 [facility] Erythrocyte distribution wid th standard deviationOrdered By: Tonio Fajardo on 03-18-2025 Erythrocyte distribution width (RBC) [Ratio] 53.8 fl High 35.1-43.9 [facility] Glomerular filtration rate ( GFR) estimation/1.73 sq m using serum, plasma, or whole bOrdered By: Tonio Fajardo on 03-18-2025 GFR/1.73 sq M.predicted among non-blacks MDRD (S/P/Bld) [Vol rate/Area] 44 mL/min/{1.73_m2} Low >60 [facility] Comment on above: mL/min/1.73m2 CKD-EP I Creatinine Equation (2020) Hematocrit Auto (Bld) [Volum e fraction]Ordered By: Tonio Fajardo on 03-18-2025 Hematocrit (Bld) [Volume fraction] 32.6 % Low 40-54 [facility] Hemoglobin measurementOrdere d By: Tonio Fajardo on 03-18-2025 Hemoglobin (Bld) [Mass/Vol] 9.7 g/dL Low 13.0-16.5 [facility] Immature granulocytes/100 WB C Auto (Bld)Ordered By: Tonio Fajardo on 03-18-2025 Immature granulocytes/100 WBC (Bld) 1.100 % High 0.0-0.9 [facility] Comment on above: IG% - Immature Granu locytes (promyelocytes, myelocytes and metamyelocytes) > 1% indicates that a LEFT SHIFT is Present. MCV (mean corpuscular volume ) determinationOrdered By: Tonio Fajardo on 03-18-2025 MCV (RBC) [Entitic vol] 90.1 fL 80-94 [facility] Mean corpuscular hemoglobin (MCH) determinationOrdered By: Tonio Fajardo on 03-18-2025 MCH (RBC) [Entitic mass] 26.8 pg Low 27.0-32.0 [facility] Mean corpuscular hemoglobin concentration (MCHC) determinationOrdered By: Tonio Fajardo on 03-18-2025 MCHC (RBC) [Mass/Vol] 29.8 g/dL Low 32-36 [facility] Mean platelet volume determi nationOrdered By: Tonio Fajardo on 03-18-2025 Platelet mean volume (Bld) [Entitic vol] 10.4 fL 6.2-12.0 [facility] Monocyte percentageOrdered B y: Tonio Fajardo on 03-18-2025 Monocytes/100 WBC (Bld) 9.4 % 0-10 [facility] Neutrophil percentageOrdered By: Tonio Fajardo on 03-18-2025 Neutrophils/100 WBC (Bld) 74.7 % High 47-70 [facility] Nucleated red blood cell per centageOrdered By: Tonio Fajardo on 03-18-2025 Nucleated RBC/100 WBC (Bld) [Ratio] 0 % 0-5 [facility] Platelet countOrdered By: Min Fajardo on 03-18-2025 Platelets (Bld) [#/Vol] 252 10*3/uL 150-450 [facility] Potassium measurement (mass/ volume)Ordered By: Tonio Fajardo on 03-18-2025 Potassium (Unsp spec) [Mass/Vol] 5.2 mmol/L High 3.3-5.1 [facility] RBC Auto (Bld) [#/Vol]Ordere d By: Tonio Fajardo on 03-18-2025 RBC (Bld) [#/Vol] 3.62 10*6/uL Low 4.6-6.2 [facility] Serum creatinine measurement (mass/volume)Ordered By: Tonio Fajardo on 03-18-2025 Creatinine [Mass/Vol] 1.59 mg/dL High 0.70-1.20 [facility] Serum glucose measurement (m ass/volume)Ordered By: Tonio Fajardo on 03-18-2025 Glucose [Mass/Vol] 223 mg/dL High 70-99 [facility] Serum or plasma calcium kingsley urement (mass/volume)Ordered By: Tonio Fajardo on 03-18-2025 Calcium [Mass/Vol] 9.5 mg/dL 7.6-11.0 [facility] Serum or plasma urea nitroge n measurement (mass/volume)Ordered By: Tonio Fajardo on 03-18-2025 Urea nitrogen [Mass/Vol] 24 mg/dL High 4- [facility] Sodium levelOrdered By: Tonio Fajardo on 03-18-2025 Sodium [Moles/Vol] 137 mmol/L 133-145 [facility] White blood cell (WBC) count Ordered By: Tonio Fajardo on 03-18-2025 WBC (Bld) [#/Vol] 7.9 10*3/uL 4.4-11.0 [facility] Cardiology Visit Reporton Cardiology Visit Report Normal [facility] Emergency Department Summary on 03-15-2025 Emergency Department Summary Normal [facility] Basic Metabolic Profile (BMP )on 03-11-2025 BUN Normal - [facility] Comment on above: Result Comment: Canc elled via OM: Order cancelled - Patient discharged Performed By: #### L 500.2500, L100.0100 ####[facility] [address] [place], [address] BUN/CRE Normal 10- [facility] Comment on above: Result Comment: Canc elled via OM: Order cancelled - Patient discharged Performed By: #### L 500.2500, L100.0100 ####[facility] [address] [place], [address] Calcium Normal 7.6-11.0 [facility] Comment on above: Result Comment: Canc elled via OM: Order cancelled - Patient discharged Performed By: #### L 500.2500, L100.0100 ####[facility] [address] [place], [address] CL Normal 98-108 [facility] Comment on above: Result Comment: Canc elled via OM: Order cancelled - Patient discharged Performed By: #### L 500.2500, L100.0100 ####[facility] [address] [place], [address] CO2 Normal 21.0-32.0 [facility] Comment on above: Result Comment: Canc elled via OM: Order cancelled - Patient discharged Performed By: #### L 500.2500, L100.0100 ####[facility] [address] [place], [address] CREAT,SERUM Normal 0.70-1.20 [facility] Comment on above: Result Comment: Canc elled via OM: Order cancelled - Patient discharged Performed By: #### L 500.2500, L100.0100 ####[facility] [address] [place], [address] eGFR Normal >60 [facility] Comment on above: Result Comment: Canc elled via OM: Order cancelled - Patient discharged Performed By: #### L 500.2500, L100.0100 ####[facility] [address] [place], [address] GAP Normal 5-15 [facility] Comment on above: Result Comment: Canc elled via OM: Order cancelled - Patient discharged Performed By: #### L 500.2500, L100.0100 ####[facility] [address] [place], [address] GLU Normal 70-99 [facility] Comment on above: Result Comment: Canc elled via OM: Order cancelled - Patient discharged Performed By: #### L 500.2500, L100.0100 ####[facility] [address] [place], [address] Potassium Normal 3.3-5.1 [facility] Comment on above: Result Comment: Canc elled via OM: Order cancelled - Patient discharged Performed By: #### L 500.2500, L100.0100 ####[facility] [address] [place], [address] Basic Metabolic Profile (BMP) Normal 133-145 [facility] Comment on above: Result Comment: Canc elled via OM: Order cancelled - Patient discharged Performed By: #### L 500.2500, L100.0100 ####[facility] [address] [place], [address] CBC W/Diff, Automatedon 07-2 Absolute Neut Normal 2.0-7.7 [facility] Comment on above: Result Comment: Canc elled via OM: Order cancelled - Patient discharged Performed By: #### L 500.2500, L100.0100 ####[facility] [address], [address] HCT Normal 40-54 [facility] Comment on above: Result Comment: Canc elled via OM: Order cancelled - Patient discharged Performed By: #### L 500.2500, L100.0100 ####[facility] [address] [place], [address] HGB Normal 13.0-16.5 [facility] Comment on above: Result Comment: Canc elled via OM: Order cancelled - Patient discharged Performed By: #### L 500.2500, L100.0100 ####[facility] [address] [place], [address] MCH Normal 27.0-32.0 [facility] Comment on above: Result Comment: Canc elled via OM: Order cancelled - Patient discharged Performed By: #### L 500.2500, L100.0100 ####[facility] [address] [place], [address] MCHC Normal 32-36 [facility] Comment on above: Result Comment: Canc elled via OM: Order cancelled - Patient discharged Performed By: #### L 500.2500, L100.0100 ####[facility] [address] [place], [address] MCV Normal 80-94 [facility] Comment on above: Result Comment: Canc elled via OM: Order cancelled - Patient discharged Performed By: #### L 500.2500, L100.0100 ####[facility] [address] [place], [address] NEUT% Normal 47-70 [facility] Comment on above: Result Comment: Canc elled via OM: Order cancelled - Patient discharged Performed By: #### L 500.2500, L100.0100 ####[facility] [address] [place], [address] PLT Normal 150-450 [facility] Comment on above: Result Comment: Canc elled via OM: Order cancelled - Patient discharged Performed By: #### L 500.2500, L100.0100 ####[facility] [address] [place], [address] RBC Normal 4.6-6.2 [facility] Comment on above: Result Comment: Canc elled via OM: Order cancelled - Patient discharged Performed By: #### L 500.2500, L100.0100 ####[facility] [address] [place], [address] RDW CV Normal 11.6-14.6 [facility] Comment on above: Result Comment: Canc elled via OM: Order cancelled - Patient discharged Performed By: #### L 500.2500, L100.0100 ####[facility] [address] [place], [address] RDW SD Normal 35.1-43.9 [facility] Comment on above: Result Comment: Canc elled via OM: Order cancelled - Patient discharged Performed By: #### L 500.2500, L100.0100 ####[facility] [address] [place], [address] WBC Normal 4.4-11.0 [facility] Comment on above: Result Comment: Canc elled via OM: Order cancelled - Patient discharged Performed By: #### L 500.2500, L100.0100 ####[facility] [address] [place], [address] Basic Metabolic Profile (BMP )on 03-10-2025 BUN Normal 4-19 [facility] Comment on above: Result Comment: Canc elled via OM: Order cancelled - Patient discharged Performed By: #### L 100.0100, L500.2500 ####[facility] [address] [place], [address] BUN/CRE Normal 10-20 [facility] Comment on above: Result Comment: Canc elled via OM: Order cancelled - Patient discharged Performed By: #### L 100.0100, L500.2500 ####[facility] [address] [place], [address] Calcium Normal 7.6-11.0 [facility] Comment on above: Result Comment: Canc elled via OM: Order cancelled - Patient discharged Performed By: #### L 100.0100, L500.2500 ####[facility] [address] [place], [address] CL Normal 98-108 [facility] Comment on above: Result Comment: Canc elled via OM: Order cancelled - Patient discharged Performed By: #### L 100.0100, L500.2500 ####[facility] [address] [place], [address] CO2 Normal 21.0-32.0 [facility] Comment on above: Result Comment: Canc elled via OM: Order cancelled - Patient discharged Performed By: #### L 100.0100, L500.2500 ####[facility] [address] [place], [address] CREAT,SERUM Normal 0.70-1.20 [facility] Comment on above: Result Comment: Canc elled via OM: Order cancelled - Patient discharged Performed By: #### L 100.0100, L500.2500 ####[facility] [address] [place], [address] eGFR Normal >60 [facility] Comment on above: Result Comment: Canc elled via OM: Order cancelled - Patient discharged Performed By: #### L 100.0100, L500.2500 ####[facility] [address] [place], [address] GAP Normal 5-15 [facility] Comment on above: Result Comment: Canc elled via OM: Order cancelled - Patient discharged Performed By: #### L 100.0100, L500.2500 ####[facility] [address] [place], [address] GLU Normal 70-99 [facility] Comment on above: Result Comment: Canc elled via OM: Order cancelled - Patient discharged Performed By: #### L 100.0100, L500.2500 ####[facility] [address] [place], [address] Potassium Normal 3.3-5.1 [facility] Comment on above: Result Comment: Canc elled via OM: Order cancelled - Patient discharged Performed By: #### L 100.0100, L500.2500 ####[facility] [address] [place], [address] Basic Metabolic Profile (BMP) Normal 133-145 [facility] Comment on above: Result Comment: Canc elled via OM: Order cancelled - Patient discharged Performed By: #### L 100.0100, L500.2500 ####[facility] [address] [place], [address] CBC W/Diff, Automatedon 07-2 Absolute Neut Normal 2.0-7.7 [facility] Comment on above: Result Comment: Canc elled via OM: Order cancelled - Patient discharged Performed By: #### L 100.0100, L500.2500 ####[facility] [address] [place], [address] HCT Normal 40-54 [facility] Comment on above: Result Comment: Canc elled via OM: Order cancelled - Patient discharged Performed By: #### L 100.0100, L500.2500 ####[facility] [address] [place], [address] HGB Normal 13.0-16.5 [facility] Comment on above: Result Comment: Canc elled via OM: Order cancelled - Patient discharged Performed By: #### L 100.0100, L500.2500 ####[facility] [address] [place], [address] MCH Normal 27.0-32.0 [facility] Comment on above: Result Comment: Canc elled via OM: Order cancelled - Patient discharged Performed By: #### L 100.0100, L500.2500 ####[facility] [address] [place], [address] MCHC Normal 32-36 [facility] Comment on above: Result Comment: Canc elled via OM: Order cancelled - Patient discharged Performed By: #### L 100.0100, L500.2500 ####[facility] [address] [place], [address] MCV Normal 80-94 [facility] Comment on above: Result Comment: Canc elled via OM: Order cancelled - Patient discharged Performed By: #### L 100.0100, L500.2500 ####[facility] [address] [place], [address] NEUT% Normal 47-70 [facility] Comment on above: Result Comment: Canc elled via OM: Order cancelled - Patient discharged Performed By: #### L 100.0100, L500.2500 ####[facility] [address] [place], [address] PLT Normal 150-450 [facility] Comment on above: Result Comment: Canc elled via OM: Order cancelled - Patient discharged Performed By: #### L 100.0100, L500.2500 ####[facility] [address] [place], [address] RBC Normal 4.6-6.2 [facility] Comment on above: Result Comment: Canc elled via OM: Order cancelled - Patient discharged Performed By: #### L 100.0100, L500.2500 ####[facility] [address] [place], [address] RDW CV Normal 11.6-14.6 [facility] Comment on above: Result Comment: Canc elled via OM: Order cancelled - Patient discharged Performed By: #### L 100.0100, L500.2500 ####[facility] [address] [place], [address] RDW SD Normal 35.1-43.9 [facility] Comment on above: Result Comment: Canc elled via OM: Order cancelled - Patient discharged Performed By: #### L 100.0100, L500.2500 ####[facility] [address] [place], [address] WBC Normal 4.4-11.0 [facility] Comment on above: Result Comment: Canc elled via OM: Order cancelled - Patient discharged Performed By: #### L 100.0100, L500.2500 ####[facility] [address] [place], [address] Absolute lymphocyte countOrd ered By: Deric Lantigua on 03-09-2025 Lymphocytes Auto (Unsp spec) [#/Vol] 0.53 10*3/uL Low 0.83-4.51 [facility] Absolute neutrophil countOrd ered By: Deric Lantigua on 03-09-2025 Neutrophils (Bld) [#/Vol] 4.0 10*3/uL 2.0-7.7 [facility] Anion gap in Serum or Plasma Ordered By: Deric Lantigua on 03-09-2025 Anion gap [Moles/Vol] 10 mmol/L 5-15 [facility] Automated lymphocyte count a s percentage of total leukocytesOrdered By: Deric Lantigua on 03-09-2025 Lymphocytes/100 WBC Auto (Unsp spec) 9.7 % Low 19-41 [facility] BUN/creatinine ratioOrdered By: Deric Lantigua on 03-09-2025 Urea nitrogen/Creatinine [Mass ratio] 20.8 mg/mg High 10-20 [facility] Basic Metabolic Profile (BMP )on 03-09-2025 BUN/CRE 20.8 RATIO High 10-20 [facility] Comment on above: Performed By: #### L 100.0100, L500.2500 ####[facility] [address] [place], [address] Calcium [Mass/Vol] 9.0 mg/dL Normal 7.6-11.0 [facility] Comment on above: Performed By: #### L 100.0100, L500.2500 ####[facility] [address] [place], [address] Chloride [Moles/Vol] 101 mmol/L Normal 98-108 [facility] Comment on above: Performed By: #### L 100.0100, L500.2500 ####[facility] [address] [place], [address] CO2 [Moles/Vol] 26.6 mmol/L Normal 21.0-32.0 [facility] Comment on above: Performed By: #### L 100.0100, L500.2500 ####[facility] [address] [place], [address] Creatinine [Mass/Vol] 2.41 mg/dL High 0.70-1.20 [facility] Comment on above: Performed By: #### L 100.0100, L500.2500 ####[facility] [address] [place], [address] ECRCL 24.14 ml/min Low 50-250 [facility] Comment on above: Performed By: #### L 100.0100, L500.2500 ####[facility] [address] [place], [address] GAP 10 Normal 5-15 [facility] Comment on above: Performed By: #### L 100.0100, L500.2500 ####[facility] [address] [place], [address] GFR/1.73 sq M.predicted among non-blacks MDRD (S/P/Bld) [Vol rate/Area] 26 mL/min/{1.73_m2} Low >60 [facility] [facility] Comment on above: Result Comment: mL/m in/1.73m2 CKD-EPI Creatinine Equation (2020) Performed By: #### L 100.0100, L500.2500 ####[facility] [address] [place], [address] Glucose [Mass/Vol] 118 mg/dL High 70-99 [facility] Comment on above: Performed By: #### L 100.0100, L500.2500 ####[facility] [address] [place], [address] Potassium [Moles/Vol] 4.3 mmol/L Normal 3.3-5.1 [facility] Comment on above: Performed By: #### L 100.0100, L500.2500 ####[facility] [address] [place], [address] Sodium [Moles/Vol] 138 mmol/L Normal 133-145 [facility] Comment on above: Performed By: #### L 100.0100, L500.2500 ####[facility] [address] [place], [address] Urea nitrogen [Mass/Vol] 50 mg/dL High 4-19 [facility] Comment on above: Performed By: #### L 100.0100, L500.2500 ####[facility] [address] [place], [address] Basophil percentageOrdered B y: Deric Lantigua on 03-09-2025 Basophils/100 WBC (Bld) 0.2 % 0-1 [facility] Bedside Glucoseon 03-09-2025 FINGERSTICK GLU 184 mg/dL High 74-106 [facility] Comment on above: Result Comment: KODY GEMENT OF PATIENT CARE PER NURSING PROTOCOL Performed By: #### L 501.080 ####[facility] [address] [place], [address] FINGERSTICK GLU 112 mg/dL High 74-106 [facility] Comment on above: Result Comment: KODY GEMENT OF PATIENT CARE PER NURSING PROTOCOL Performed By: #### L 501.080 ####[facility] [address] [place], [address] CBC W/Diff, Automatedon 07- Absolute Lymph 0.53 X10 3/uL Low 0.83-4.51 [facility] Comment on above: Performed By: #### L 100.0100, L500.2500 ####[facility] [address] [place], [address] Absolute Neut 4.0 X10 3/uL Normal 2.0-7.7 [facility] Comment on above: Performed By: #### L 100.0100, L500.2500 ####[facility] [address] [place], [address] Basophils/100 WBC (Bld) 0.2 % Normal 0-1 [facility] Comment on above: Performed By: #### L 100.0100, L500.2500 ####[facility] [address] [place], [address] Eosinophils/100 WBC (Bld) 4.8 % Normal 0-5 [facility] Comment on above: Performed By: #### L 100.0100, L500.2500 ####[facility] [address] [place], [address] Erythrocyte distribution width (RBC) [Ratio] 16.3 % High 11.6-14.6 [facility] Comment on above: Performed By: #### L 100.0100, L500.2500 ####[facility] [address] [place], [address] Hematocrit (Bld) [Volume fraction] 29.6 % Low 40-54 [facility] Comment on above: Performed By: #### L 100.0100, L500.2500 ####[facility] [address] [place], [address] Hemoglobin (Bld) [Mass/Vol] 9.3 g/dL Low 13.0-16.5 [facility] Comment on above: Performed By: #### L 100.0100, L500.2500 ####[facility] [address] [place], [address] IG% 0.600 Normal 0.0-0.9 [facility] Comment on above: Result Comment: IG% - Immature Granulocytes (promyelocytes, myelocytes andmetamyelocytes) > 1% indicates that a LEFT SHIFT is Present. Performed By: #### L 100.0100, L500.2500 ####[facility] [address] [place], [address] Lymphocytes/100 WBC (Bld) 9.7 % Low 19-41 [facility] Comment on above: Performed By: #### L 100.0100, L500.2500 ####[facility] [address] [place], [address] MCH (RBC) [Entitic mass] 27.5 pg Normal 27.0-32.0 [facility] Comment on above: Performed By: #### L 100.0100, L500.2500 ####[facility] [address] [place], [address] MCHC (RBC) [Mass/Vol] 31.4 g/dL Low 32-36 [facility] Comment on above: Performed By: #### L 100.0100, L500.2500 ####[facility] [address] [place], [address] MCV (RBC) [Entitic vol] 87.6 fL Normal 80-94 [facility] Comment on above: Performed By: #### L 100.0100, L500.2500 ####[facility] [address] [place], [address] Monocytes/100 WBC (Bld) 12.1 % High 0-10 [facility] Comment on above: Performed By: #### L 100.0100, L500.2500 ####[facility] [address] [place], [address] Neutrophils/100 WBC (Bld) 72.6 % High 47-70 [facility] Comment on above: Performed By: #### L 100.0100, L500.2500 ####[facility] [address] [place], [address] Nucleated RBC (Bld) [#/Vol] 0 10*3/uL Normal 0-5 [facility] Comment on above: Performed By: #### L 100.0100, L500.2500 ####[facility] [address] [place], [address] Platelet mean volume (Bld) [Entitic vol] 10.0 fL Normal 6.2-12.0 [facility] Comment on above: Performed By: #### L 100.0100, L500.2500 ####[facility] [address] [place], [address] Platelets (Bld) [#/Vol] 162 10*3/uL Normal 150-450 [facility] Comment on above: Performed By: #### L 100.0100, L500.2500 ####[facility] [address] [place], [address] RBC (Bld) [#/Vol] 3.38 10*6/uL Low 4.6-6.2 [facility] Comment on above: Performed By: #### L 100.0100, L500.2500 ####[facility] [address] [place], [address] RDW SD 51.8 fl High 35.1-43.9 [facility] Comment on above: Performed By: #### L 100.0100, L500.2500 ####[facility] [address] [place], [address] WBC (Bld) [#/Vol] 5.5 10*3/uL Normal 4.4-11.0 [facility] Comment on above: Performed By: #### L 100.0100, L500.2500 ####[facility] [address] [place], [address] Carbon dioxide, total [Moles /volume] in Central venous bloodOrdered By: Deric Lantigua on 03-09-2025 CO2 [Moles/Vol] 26.6 mmol/L 21.0-32.0 [facility] Chloride assayOrdered By: Silvia Lantigua on 03-09-2025 Chloride [Moles/Vol] 101 mmol/L 98-108 [facility] Discharge Instructionon 02-18 Discharge Instruction Normal [facility] Eosinophil percentageOrdered By: Deric Lantigua on 03-09-2025 Eosinophils/100 WBC (Bld) 4.8 % 0-5 [facility] Erythrocyte distribution wid th ratioOrdered By: Deric Lantigua on 03-09-2025 Erythrocyte distribution width (RBC) [Ratio] 16.3 % High 11.6-14.6 [facility] Erythrocyte distribution wid th standard deviationOrdered By: Deric Lantigua on 03-09-2025 Erythrocyte distribution width (RBC) [Ratio] 51.8 fl High 35.1-43.9 [facility] Glomerular filtration rate ( GFR) estimation/1.73 sq m using serum, plasma, or whole bOrdered By: Deric Lantigua on 03-09-2025 GFR/1.73 sq M.predicted among non-blacks MDRD (S/P/Bld) [Vol rate/Area] 26 mL/min/{1.73_m2} Low >60 [facility] Comment on above: mL/min/1.73m2 CKD-EP I Creatinine Equation (2020) [facility] deOrdered By: Deric Lantigua on 03-09-2025 Glucose [Mass/Vol] 184 mg/dL High 74-106 [facility] Comment on above: MANAGEMENT OF PATIEN T CARE PER NURSING PROTOCOL Hematocrit Auto (Bld) [Volum e fraction]Ordered By: Deric Lantigua on 03-09-2025 Hematocrit (Bld) [Volume fraction] 29.6 % Low 40-54 [facility] Hemoglobin measurementOrdere d By: Deric Lantigua on 03-09-2025 Hemoglobin (Bld) [Mass/Vol] 9.3 g/dL Low 13.0-16.5 [facility] Immature granulocytes/100 WB C Auto (Bld)Ordered By: Deric Lantigua on 03-09-2025 Immature granulocytes/100 WBC (Bld) 0.600 % 0.0-0.9 [facility] Comment on above: IG% - Immature Granu locytes (promyelocytes, myelocytes and metamyelocytes) > 1% indicates that a LEFT SHIFT is Present. MCV (mean corpuscular volume ) determinationOrdered By: Deric Lantigua on 03-09-2025 MCV (RBC) [Entitic vol] 87.6 fL 80-94 [facility] Mean corpuscular hemoglobin (MCH) determinationOrdered By: Deric Lantigua on 03-09-2025 MCH (RBC) [Entitic mass] 27.5 pg 27.0-32.0 [facility] Mean corpuscular hemoglobin concentration (MCHC) determinationOrdered By: Deric Lantigua on 03-09-2025 MCHC (RBC) [Mass/Vol] 31.4 g/dL Low 32-36 [facility] Mean platelet volume determi nationOrdered By: Dreic Lantigua on 03-09-2025 Platelet mean volume (Bld) [Entitic vol] 10.0 fL 6.2-12.0 [facility] Monocyte percentageOrdered B y: Deric Lantigua on 03-09-2025 Monocytes/100 WBC (Bld) 12.1 % High 0-10 [facility] Neutrophil percentageOrdered By: Deric Lantigua on 03-09-2025 Neutrophils/100 WBC (Bld) 72.6 % High 47-70 [facility] Nucleated red blood cell per centageOrdered By: Deric Lantigua on 03-09-2025 Nucleated RBC/100 WBC (Bld) [Ratio] 0 % 0-5 [facility] Platelet countOrdered By: Silvia Lantigua on 03-09-2025 Platelets (Bld) [#/Vol] 162 10*3/uL 150-450 [facility] Potassium measurement (mass/ volume)Ordered By: Deric Lantigua on 03-09-2025 Potassium (Unsp spec) [Mass/Vol] 4.3 mmol/L 3.3-5.1 [facility] RBC Auto (Bld) [#/Vol]Ordere d By: Deric Lantigua on 03-09-2025 RBC (Bld) [#/Vol] 3.38 10*6/uL Low 4.6-6.2 [facility] Serum creatinine measurement (mass/volume)Ordered By: Deric Lantigua on 03-09-2025 Creatinine [Mass/Vol] 2.41 mg/dL High 0.70-1.20 [facility] Serum glucose measurement (m ass/volume)Ordered By: Deric Lantigua on 03-09-2025 Glucose [Mass/Vol] 118 mg/dL High 70-99 [facility] Serum or plasma calcium [place] urement (mass/volume)Ordered By: Deric Lantigua on 03-09-2025 Calcium [Mass/Vol] 9.0 mg/dL 7.6-11.0 [facility] Serum or plasma urea nitroge n measurement (mass/volume)Ordered By: Deric Lantigua on 03-09-2025 Urea nitrogen [Mass/Vol] 50 mg/dL High 4-19 [facility] Sodium levelOrdered By: Mikki Lantigua on 03-09-2025 Sodium [Moles/Vol] 138 mmol/L 133-145 [facility] White blood cell (WBC) count Ordered By: Deric Lantigua on 03-09-2025 WBC (Bld) [#/Vol] 5.5 10*3/uL 4.4-11.0 [facility] Basic Metabolic Profile (BMP )on 03-08-2025 BUN/CRE 19.9 RATIO Normal 10-20 [facility] Comment on above: Performed By: #### L 500.2500 ####[facility] [address] [facility] [address] Calcium [Mass/Vol] 8.8 mg/dL Normal 7.6-11.0 [facility] Comment on above: Performed By: #### L 500.2500 ####[facility] [address] [place], [address] Chloride [Moles/Vol] 99 mmol/L Normal 98-108 [facility] Comment on above: Performed By: #### L 500.2500 ####[facility] [address] [place], [address] CO2 [Moles/Vol] 27.0 mmol/L Normal 21.0-32.0 [facility] Comment on above: Performed By: #### L 500.2500 ####[facility] [address] [place], [address] Creatinine [Mass/Vol] 3.11 mg/dL High 0.70-1.20 [facility] Comment on above: Performed By: #### L 500.2500 ####[facility] [address] [place], [address] ECRCL 17.10 ml/min Low 50-250 [facility] Comment on above: Performed By: #### L 500.2500 ####[facility] [address] [place], [address] GAP 10 Normal 5-15 [facility] Comment on above: Performed By: #### L 500.2500 ####[facility] [address] [place], [address] GFR/1.73 sq M.predicted among non-blacks MDRD (S/P/Bld) [Vol rate/Area] 19 mL/min/{1.73_m2} Low >60 [facility] Comment on above: Result Comment: mL/m in/1.73m2 CKD-EPI Creatinine Equation (2020) Performed By: #### L 500.2500 ####[facility] [address] [place], [address] Glucose [Mass/Vol] 127 mg/dL High 70-99 [facility] Comment on above: Performed By: #### L 500.2500 ####[facility] [address] [place], [address] Potassium [Moles/Vol] 5.3 mmol/L High 3.3-5.1 [facility] Comment on above: Performed By: #### L 500.2500 ####[facility] [address] [place], [address] Sodium [Moles/Vol] 135 mmol/L Normal 133-145 [facility] Comment on above: Performed By: #### L 500.2500 ####[facility] [address] [place], [address] Urea nitrogen [Mass/Vol] 62 mg/dL High 4-19 [facility] Comment on above: Performed By: #### L 500.2500 ####[facility] [address] [place], [address] Bedside Glucoseon 03-08-2025 FINGERSTICK GLU 132 mg/dL High 74-106 [facility] Comment on above: Result Comment: KODY GEMENT OF PATIENT CARE PER NURSING PROTOCOL Performed By: #### L 501.080 ####[facility] [address] [place], [address] FINGERSTICK GLU 128 mg/dL High 74-106 [facility] Comment on above: Result Comment: KODY GEMENT OF PATIENT CARE PER NURSING PROTOCOL Performed By: #### L 501.080 ####[facility] [address] [place], [address] FINGERSTICK GLU 142 mg/dL High -106 [facility] Comment on above: Result Comment: KODY GEMENT OF PATIENT CARE PER NURSING PROTOCOL Performed By: #### L 501.080 ####[facility] [address] [place], [address] FINGERSTICK GLU 122 mg/dL High -106 [facility] Comment on above: Result Comment: KODY GEMENT OF PATIENT CARE PER NURSING PROTOCOL Performed By: #### L 501.080 ####[facility] [address] [place], [address] Magnesiumon 03-08-2025 Magnesium [Mass/Vol] 2.3 mg/dL High 1.5-2.2 [facility] Comment on above: Performed By: #### L 501.5200 ####[facility] [address] [place], [address] Magnesium measurement (mass/ volume)Ordered By: Nicola Madison on 03-08-2025 Magnesium (Unsp spec) [Mass/Vol] 2.3 mg/dL High 1.5-2.2 [facility] Potassiumon 03-08-2025 Potassium [Moles/Vol] 5.5 mmol/L High 3.3-5.1 [facility] Comment on above: Performed By: #### L 501.5600 ####[facility] [address] [place], [address] Basic Metabolic Profile (BMP )on 03-07-2025 BUN/CRE 18.2 RATIO Normal 10-20 [facility] Comment on above: Performed By: #### L 500.2500 ####[facility] [address] [place], [address] Calcium [Mass/Vol] 8.7 mg/dL Normal 7.6-11.0 [facility] Comment on above: Performed By: #### L 500.2500 ####[facility] [address] [place], [address] Chloride [Moles/Vol] 97 mmol/L Low 98-108 [facility] Comment on above: Performed By: #### L 500.2500 ####[facility] [address] [place], [address] CO2 [Moles/Vol] 26.3 mmol/L Normal 21.0-32.0 [facility] Comment on above: Performed By: #### L 500.2500 ####[facility] [address] [place], [address] Creatinine [Mass/Vol] 3.09 mg/dL High 0.70-1.20 [facility] Comment on above: Performed By: #### L 500.2500 ####[facility] [address] [place], [address] ECRCL 17.21 ml/min Low 50-250 [facility] Comment on above: Performed By: #### L 500.2500 ####[facility] [address] [place], [address] GAP 10 Normal 5-15 [facility] Comment on above: Performed By: #### L 500.2500 ####[facility] [address] [place], [address] GFR/1.73 sq M.predicted among non-blacks MDRD (S/P/Bld) [Vol rate/Area] 20 mL/min/{1.73_m2} Low >60 [facility] Comment on above: Result Comment: mL/m in/1.73m2 CKD-EPI Creatinine Equation (2020) Performed By: #### L 500.2500 ####[facility] [address] [place], [address] Glucose [Mass/Vol] 126 mg/dL High 70-99 [facility] Comment on above: Performed By: #### L 500.2500 ####[facility] [address] [place], [address] Potassium [Moles/Vol] 4.8 mmol/L Normal 3.3-5.1 [facility] Comment on above: Performed By: #### L 500.2500 ####[facility] [address] [place], [address] Sodium [Moles/Vol] 134 mmol/L Normal 133-145 [facility] Comment on above: Performed By: #### L 500.2500 ####[facility] [address] [place], [address] Urea nitrogen [Mass/Vol] 56 mg/dL High 4-19 [facility] Comment on above: Performed By: #### L 500.2500 ####[facility] [address] [place], [address] Bedside Glucoseon 03-07-2025 FINGERSTICK GLU 151 mg/dL High 74-106 [facility] Comment on above: Result Comment: KODY STRONG OF PATIENT CARE PER NURSING PROTOCOL Performed By: #### L 501.080 ####[facility] [address] [place], [address] FINGERSTICK GLU 191 mg/dL High 74-106 [facility] Comment on above: Result Comment: KODY GEMENT OF PATIENT CARE PER NURSING PROTOCOL Performed By: #### L 501.080 ####[facility] [address] [place], [address] FINGERSTICK GLU 184 mg/dL High 74-106 [facility] Comment on above: Result Comment: KODY GEMENT OF PATIENT CARE PER NURSING PROTOCOL Performed By: #### L 501.080 ####[facility] [address] [place], [address] FINGERSTICK GLU 127 mg/dL High 74-106 [facility] Comment on above: Result Comment: KODY GEMENT OF PATIENT CARE PER NURSING PROTOCOL Performed By: #### L 501.080 ####[facility] [address] [place], [address] Urine Cultureon 03-07-2025 [facility] Comments: On UA samp le of 03/04 Culture exhibits no growth. Normal [facility] Comment on above: Performed By: #### M 100.2200 ####[facility] [address] [place], [address] Basic Metabolic Profile (BMP )on 03-06-2025 BUN/CRE 17.8 RATIO Normal 10-20 [facility] Comment on above: Performed By: #### L 500.2500, L501.2300 ####[facility] [address] [place], [address] Calcium [Mass/Vol] 9.1 mg/dL Normal 7.6-11.0 [facility] Comment on above: Performed By: #### L 500.2500, L501.2300 ####[facility] [address] [place], [address] Chloride [Moles/Vol] 99 mmol/L Normal 98-108 [facility] Comment on above: Performed By: #### L 500.2500, L501.2300 ####[facility] [address] [place], [address] CO2 [Moles/Vol] 31.2 mmol/L Normal 21.0-32.0 [facility] Comment on above: Performed By: #### L 500.2500, L501.2300 ####[facility] [address] [place], [address] Creatinine [Mass/Vol] 2.23 mg/dL High 0.70-1.20 [facility] Comment on above: Performed By: #### L 500.2500, L501.2300 ####[facility] [address] [place], [address] ECRCL 23.84 ml/min Low 50-250 [facility] Comment on above: Performed By: #### L 500.2500, L501.2300 ####[facility] [address] [place], [address] GAP 8 Normal 5-15 [facility] Comment on above: Performed By: #### L 500.2500, L501.2300 ####[facility] [address] [place], [address] GFR/1.73 sq M.predicted among non-blacks MDRD (S/P/Bld) [Vol rate/Area] 29 mL/min/{1.73_m2} Low >60 [facility] Comment on above: Result Comment: mL/m in/1.73m2 CKD-EPI Creatinine Equation (2020) Performed By: #### L 500.2500, L501.2300 ####[facility] [address] [place], [address] Glucose [Mass/Vol] 118 mg/dL High 70-99 [facility] Comment on above: Performed By: #### L 500.2500, L501.2300 ####[facility] [address] [place], [address] Potassium [Moles/Vol] 4.7 mmol/L Normal 3.3-5.1 [facility] Comment on above: Performed By: #### L 500.2500, L501.2300 ####[facility] [address] [place], [address] Sodium [Moles/Vol] 138 mmol/L Normal 133-145 [facility] Comment on above: Performed By: #### L 500.2500, L501.2300 ####[facility] [address] [place], [address] Urea nitrogen [Mass/Vol] 40 mg/dL High 4-19 [facility] Comment on above: Performed By: #### L 500.2500, L501.2300 ####[facility] [address] [place], [address] Bedside Glucoseon 03-06-2025 FINGERSTICK GLU 146 mg/dL High 74-106 [facility] Comment on above: Result Comment: KODY GEMENT OF PATIENT CARE PER NURSING PROTOCOL Performed By: #### L 501.080 ####[facility] [address] [place], [address] FINGERSTICK GLU 117 mg/dL High 74-106 [facility] Comment on above: Result Comment: KODY GEMENT OF PATIENT CARE PER NURSING PROTOCOL Performed By: #### L 501.080 ####[facility] [address] [place], [address] FINGERSTICK GLU 229 mg/dL High 74-106 [facility] Comment on above: Result Comment: KODY GEMENT OF PATIENT CARE PER NURSING PROTOCOL Performed By: #### L 501.080 ####[facility] [address] [place], [address] FINGERSTICK GLU 109 mg/dL High 74-106 [facility] Comment on above: Result Comment: KODY GEMENT OF PATIENT CARE PER NURSING PROTOCOL Performed By: #### L 501.080 ####[facility] [address] [place], [address] FINGERSTICK GLU 140 mg/dL High 74-106 [facility] Comment on above: Result Comment: KODY GEMENT OF PATIENT CARE PER NURSING PROTOCOL Performed By: #### L 501.080 ####[facility] [address] [place], [address] Consultation - Cardiologyon 03-06-2025 Consultation - Cardiology Normal [facility] Phosphoruson 03-06-2025 Phosphate [Mass/Vol] 3.9 mg/dL Normal 2.7-4.5 [facility] Comment on above: Performed By: #### L 500.2500, L501.2300 ####[facility] [address] [place], [address] Urine cultureOrdered By: Kavita Lantigua on 03-06-2025 Bacteria identified Cx Nom (U) Culture exhibits no growth. [facility] Bedside Glucoseon 03-05-2025 FINGERSTICK GLU 111 mg/dL High 74-106 [facility] Comment on above: Result Comment: KODY GEMENT OF PATIENT CARE PER NURSING PROTOCOL Performed By: #### L 501.080 ####[facility] [address] [place], [address] FINGERSTICK GLU 152 mg/dL High 74-106 [facility] Comment on above: Result Comment: KODY GEMENT OF PATIENT CARE PER NURSING PROTOCOL Performed By: #### L 501.080 ####[facility] [address] [place], [address] FINGERSTICK GLU 159 mg/dL High 74-106 [facility] Comment on above: Result Comment: KODY GEMENT OF PATIENT CARE PER NURSING PROTOCOL Performed By: #### L 501.080 ####[facility] [address] [place], [address] Bilirubin, totalOrdered By: Nicola Madison on 03-05-2025 Bilirubin [Mass/Vol] 0.46 mg/dL 0.00-1.30 [facility] CBC W/Diff, Automatedon 02-17 Absolute Lymph 0.72 X10 3/uL Low 0.83-4.51 [facility] Comment on above: Performed By: #### L 501.2300, L100.0100 ####[facility] [address] [place], [address] Absolute Neut 5.8 X10 3/uL Normal 2.0-7.7 [facility] Comment on above: Performed By: #### L 501.2300, L100.0100 ####[facility] [address] [place], [address] Basophils/100 WBC (Bld) 0.4 % Normal 0-1 [facility] Comment on above: Performed By: #### L 501.2300, L100.0100 ####[facility] [address] [place], [address] Eosinophils/100 WBC (Bld) 2.0 % Normal 0-5 [facility] Comment on above: Performed By: #### L 501.2300, L100.0100 ####[facility] [address] [place], [address] Erythrocyte distribution width (RBC) [Ratio] 16.6 % High 11.6-14.6 [facility] Comment on above: Performed By: #### L 501.2300, L100.0100 ####[facility] [address] [place], [address] Hematocrit (Bld) [Volume fraction] 30.1 % Low 40-54 [facility] Comment on above: Performed By: #### L 501.2300, L100.0100 ####[facility] [address] [place], [address] Hemoglobin (Bld) [Mass/Vol] 9.3 g/dL Low 13.0-16.5 [facility] Comment on above: Performed By: #### L 501.2300, L100.0100 ####[facility] [address] [place], [address] IG% 0.300 Normal 0.0-0.9 [facility] Comment on above: Result Comment: IG% - Immature Granulocytes (promyelocytes, myelocytes andmetamyelocytes) > 1% indicates that a LEFT SHIFT is Present. Performed By: #### L 501.2300, L100.0100 ####[facility] [address] [place], [address] Lymphocytes/100 WBC (Bld) 9.5 % Low 19-41 [facility] Comment on above: Performed By: #### L 501.2300, L100.0100 ####[facility] [address] [place], [address] MCH (RBC) [Entitic mass] 27.0 pg Normal 27.0-32.0 [facility] Comment on above: Performed By: #### L 501.2300, L100.0100 ####[facility] [address] [place], [address] MCHC (RBC) [Mass/Vol] 30.9 g/dL Low 32-36 [facility] Comment on above: Performed By: #### L 501.2300, L100.0100 ####[facility] [address] [place], [address] MCV (RBC) [Entitic vol] 87.5 fL Normal 80-94 [facility] Comment on above: Performed By: #### L 501.2300, L100.0100 ####[facility] [address] [place], [address] Monocytes/100 WBC (Bld) 11.4 % High 0-10 [facility] Comment on above: Performed By: #### L 501.2300, L100.0100 ####[facility] [address] [place], [address] Neutrophils/100 WBC (Bld) 76.4 % High 47-70 [facility] Comment on above: Performed By: #### L 501.2300, L100.0100 ####[facility] [address] [place], [address] Nucleated RBC (Bld) [#/Vol] 0 10*3/uL Normal 0-5 [facility] Comment on above: Performed By: #### L 501.2300, L100.0100 ####[facility] [address] [place], [address] Platelet mean volume (Bld) [Entitic vol] 10.7 fL Normal 6.2-12.0 [facility] Comment on above: Performed By: #### L 501.2300, L100.0100 ####[facility] [address] [place], [address] Platelets (Bld) [#/Vol] 181 10*3/uL Normal 150-450 [facility] Comment on above: Performed By: #### L 501.2300, L100.0100 ####[facility] [address] [place], [address] RBC (Bld) [#/Vol] 3.44 10*6/uL Low 4.6-6.2 [facility] Comment on above: Performed By: #### L 501.2300, L100.0100 ####[facility] [address] [place], [address] RDW SD 52.8 fl High 35.1-43.9 [facility] Comment on above: Performed By: #### L 501.2300, L100.0100 ####[facility] [address] [place], [address] WBC (Bld) [#/Vol] 7.6 10*3/uL Normal 4.4-11.0 [facility] Comment on above: Performed By: #### L 501.2300, L100.0100 ####[facility] [address] [place], [address] Calculated very low density lipoprotein (VLDL) cholesterol measurementOrdered By: Nicola Madison on 03-05-2025 Calculated very low density lipoprotein (VLDL) cholesterol measurement 16 mg/dL 5-40 [facility] Chest 1 View (Portable)on Chest 1 View (Portable) Normal [facility] Comprehensive Metabolic Prof ilon 03-05-2025 Albumin [Mass/Vol] 3.4 g/dL Normal 3.4-4.8 [facility] Comment on above: Performed By: #### L 500.4050, L503.7505, L500.4100 ####[facility] [address] [place], [address] Albumin/Globulin [Mass ratio] 0.9 {ratio} Normal 0.9-2.4 [facility] Comment on above: Performed By: #### L 500.4050, L503.7505, L500.4100 ####[facility] [address] [place], [address] ALK PHOS 75 U/L Normal 40-129 [facility] Comment on above: Performed By: #### L 500.4050, L503.7505, L500.4100 ####[facility] [address] [place], [address] ALT [Catalytic activity/Vol] 10 U/L Normal <=46 [facility] Comment on above: Performed By: #### L 500.4050, L503.7505, L500.4100 ####[facility] [address] [place], [address] AST [Catalytic activity/Vol] 15 U/L Normal <=37 [facility] Comment on above: Performed By: #### L 500.4050, L503.7505, L500.4100 ####[facility] [address] [place], [address] Bilirubin [Mass/Vol] 0.46 mg/dL Normal 0.00-1.30 [facility] Comment on above: Performed By: #### L 500.4050, L503.7505, L500.4100 ####[facility] [address] [place], [address] BUN/CRE 18.6 RATIO Normal 10-20 [facility] Comment on above: Performed By: #### L 500.4050, L503.7505, L500.4100 ####[facility] [address] [place], [address] Calcium [Mass/Vol] 9.1 mg/dL Normal 7.6-11.0 [facility] Comment on above: Performed By: #### L 500.4050, L503.7505, L500.4100 ####[facility] [address] [place], [address] Chloride [Moles/Vol] 101 mmol/L Normal 98-108 [facility] Comment on above: Performed By: #### L 500.4050, L503.7505, L500.4100 ####[facility] [address] [place], [address] CO2 [Moles/Vol] 27.2 mmol/L Normal 21.0-32.0 [facility] Comment on above: Performed By: #### L 500.4050, L503.7505, L500.4100 ####[facility] [address] [place], [address] Creatinine [Mass/Vol] 1.95 mg/dL High 0.70-1.20 [facility] Comment on above: Performed By: #### L 500.4050, L503.7505, L500.4100 ####[facility] [address] [place], [address] ECRCL 27.26 ml/min Low 50-250 [facility] Comment on above: Performed By: #### L 500.4050, L503.7505, L500.4100 ####[facility] [address] [place], [address] GAP 10 Normal 5-15 [facility] Comment on above: Performed By: #### L 500.4050, L503.7505, L500.4100 ####[facility] [address] [place], [address] GFR/1.73 sq M.predicted among non-blacks MDRD (S/P/Bld) [Vol rate/Area] 34 mL/min/{1.73_m2} Low >60 [facility] Comment on above: Result Comment: mL/m in/1.73m2 CKD-EPI Creatinine Equation (2020) Performed By: #### L 500.4050, L503.7505, L500.4100 ####[facility] [address] [place], [address] Globulin (S) [Mass/Vol] 3.9 g/dL Normal 2.2-4.2 [facility] Comment on above: Performed By: #### L 500.4050, L503.7505, L500.4100 ####[facility] [address] [place], [address] Glucose [Mass/Vol] 171 mg/dL High 70-99 [facility] Comment on above: Performed By: #### L 500.4050, L503.7505, L500.4100 ####[facility] [address] [place], [address] Potassium [Moles/Vol] 5.0 mmol/L Normal 3.3-5.1 [facility] Comment on above: Performed By: #### L 500.4050, L503.7505, L500.4100 ####[facility] [address] [place], [address] Sodium [Moles/Vol] 138 mmol/L Normal 133-145 [facility] Comment on above: Performed By: #### L 500.4050, L503.7505, L500.4100 ####[facility] [address] [place], [address] T PROT 7.3 g/dL Normal 5.9-8.4 [facility] Comment on above: Performed By: #### L 500.4050, L503.7505, L500.4100 ####[facility] [address] [place], [address] Urea nitrogen [Mass/Vol] 36 mg/dL High 4-19 [facility] Comment on above: Performed By: #### L 500.4050, L503.7505, L500.4100 ####[facility] [address] [place], [address] Echocardiogram study reportO rdered By: Marjorie Green on 03-05-2025 Study report [facility] [address] [place] [address] Echo Complete W/ Contrast 03/05/25 0941 MR#: [id number] Acct: [id number] Name: PEDRO HILLMAN Rep #:[id number] : 1945 80 From: Marjorie Green MD [...] Date Dictated: 03/05/25940 Date Transcribed: 03/05/25 115 Director Translational: Signed [facility] Work Phone: [phone] 03-05-2025 Natriuretic peptide B (Bld) [Mass/Vol] 4176 pg/mL High <=1800 [facility] Comment on above: Result Comment: Hear t Failure Unlikely: < 300 pg/mLHeart Failure Likely< 50 Years: > 450 pg/mL50-75 Years: > 900 pg/mL>75 Years: > 1800 pg/mL Performed By: #### L 500.4050, L503.7505, L500.4100 ####[facility] [address] [place], [address] LDL calc ser/plasOrdered By: Nicola Madison on 03-05-2025 Cholesterol in LDL [Mass/Vol] 63 mg/dL [facility] Comment on above: Sptnskrpaq=000-465 m g/dL & Higher Vmyj=551 mg/dL or greater Laboratory - Chemistry and C hemistry - challengeOrdered By: Nicola Madison on 03-05-2025 AST [Catalytic activity/Vol] 15 U/L <38 [facility] Lipid Profileon 03-05-2025 CHOL:HDL 3.04 Normal [facility] Comment on above: Performed By: #### L 500.4050, L503.7505, L500.4100 ####[facility] [address] [place], [address] Cholesterol [Mass/Vol] 117 mg/dL Normal <=200 [facility] Comment on above: Result Comment: Chol esterol level, Desirable <200 mg/dLBorderline high cholesterol 200-239 mg/dLHigh cholesterol >=240 mg/dLRecommendations of the NCEP Adult Treatment Panel for thefollowing risk-cutoff thresholds for the [place] Americanpulation. Performed By: #### L 500.4050, L503.7505, L500.4100 ####[facility] [address] [place], [address] Cholesterol in HDL [Mass/Vol] 39 mg/dL Low [facility] Comment on above: Result Comment: Gia onal Cholesterol Education Program (NCEP) guidelines:<40 mg/dL: Low HDL-cholesterol (major risk factor for CHD)>= 60 mg/dL: High HDL-cholesterol (negative risk factor forCHD)HDL-cholesterol is affected by a number of factors, e.g.smoking, exercise, hormones, sex and age. Performed By: #### L 500.4050, L503.7505, L500.4100 ####[facility] [address] [place], [address] Cholesterol in LDL [Mass/Vol] 63 mg/dL Normal [facility] Comment on above: Result Comment: Bord meyvpf=597-781 mg/dL Higher Rrcv=564 mg/dL or greater Performed By: #### L 500.4050, L503.7505, L500.4100 ####[facility] [address] [place], [address] Cholesterol in VLDL [Mass/Vol] 16 mg/dL Normal 5-40 [facility] Comment on above: Performed By: #### L 500.4050, L503.7505, L500.4100 ####[facility] [address] [place], [address] Triglyceride [Mass/Vol] 79 mg/dL Normal [facility] Comment on above: Result Comment: The drugs N-Acetylcysteine and Metamizole may falselydepress this assay.Normal range: <150 mg/dLBorderline High: 150-199 mg/dLHigh: 200-499 mg/dLVery High: >500 mg/dL Performed By: #### L 500.4050, L503.7505, L500.4100 ####[facility] [address] [place], [address] Natriuretic peptide.B prohor girish N-Terminal [Mass/volume] in Serum or PlasmaOrdered By: Nicola Madison on 03-05-2025 Natriuretic peptide.B prohormone N-Terminal [Mass/Vol] 4176 pg/mL High <1800 [facility] Comment on above: Heart Failure Unlike ly: < 300 pg/mLHeart Failure Likely< 50 Years: > 450 pg/mL50-75 Years: > 900 pg/mL>75 Years: > 1800 pg/mL No Panel InformationOrdered By: Nicola Madison on 03-05-2025 15 U/L <38 [facility] Phosphoruson 03-05-2025 Phosphate [Mass/Vol] 3.3 mg/dL Normal 2.7-4.5 [facility] Comment on above: Performed By: #### L 501.2300, L100.0100 ####[facility] [address] [place], [address] Screening total cholesterol/ high density lipoprotein (HDL) cholesterol ratioOrdered By: Nicola Madison on 03-05-2025 Cholesterol.total/Choles terol in HDL [Mass ratio] 3.04 {ratio} [facility] Serum globulin measurementOr dered By: Nicola Madison on 03-05-2025 Globulin (S) [Mass/Vol] 3.9 g/dL 2.2-4.2 [facility] Serum or plasma alanine ortiz otransferase (ALT) measurementOrdered By: Nicola Madison on 03-05-2025 ALT [Catalytic activity/Vol] 10 U/L <47 [facility] Serum or plasma albumin kingsley urement (mass/volume)Ordered By: Nicola Madison on 03-05-2025 Albumin [Mass/Vol] 3.4 g/dL 3.4-4.8 [facility] Serum or plasma albumin/glob ulin mass ratioOrdered By: Nicola Madison on 03-05-2025 Albumin/Globulin [Mass ratio] 0.9 {ratio} 0.9-2.4 [facility] Serum or plasma alkaline roosevelt sphatase measurementOrdered By: Nicola Madison on 03-05-2025 ALP [Catalytic activity/Vol] 75 U/L 40-129 [facility] Serum or plasma cholesterol in HDL measurement (mass/volume)Ordered By: Nicola Madison on 03-05-2025 Cholesterol in HDL [Mass/Vol] 39 mg/dL Low >40 [facility] Comment on above: National Cholesterol Education Program (NCEP) guidelines:<40 mg/dL: Low HDL-cholesterol (major risk factor for CHD)>= 60 mg/dL: High HDL-cholesterol (negative risk factor for CHD)HDL-cholesterol is affected by a number of factors, e.g. smoking, exercise, hormones, sex and age. Serum or plasma cholesterol measurement (mass/volume)Ordered By: Nicola Madison on 03-05-2025 Cholesterol [Mass/Vol] 117 mg/dL <201 [facility] Comment on above: Cholesterol level, D esirable <200 mg/dLBorderline high cholesterol 200-239 mg/dLHigh cholesterol >=240 mg/dLRecommendations of the NCEP Adult Treatment Panel for the following risk-cutoff thresholds for the [place] population. Total proteinOrdered By: Jacob Madison on 03-05-2025 Protein [Mass/Vol] 7.3 g/dL 5.9-8.4 [facility] Triglycerides measurementOrd ered By: Nicola Madison on 03-05-2025 Triglyceride [Mass/Vol] 79 mg/dL <199 [facility] Comment on above: The drugs N-Acetylcy steine and Metamizole may falsely depress this assay. Normal range: <150 mg/dLBorderline High: 150-199 mg/dLHigh: 200-499 mg/dLVery High: >500 mg/dL Absolute lymphocyte countOrd ered By: Chris Ochoa on 03-04-2025 Lymphocytes Auto (Unsp spec) [#/Vol] 0.77 10*3/uL Low 0.83-4.51 [facility] Absolute neutrophil countOrd ered By: Chris Ochoa on 03-04-2025 Neutrophils (Bld) [#/Vol] 6.0 10*3/uL 2.0-7.7 [facility] Anion gap in Serum or Plasma Ordered By: Chris Ochoa on 03-04-2025 Anion gap [Moles/Vol] 8 mmol/L 5-15 [facility] Automated lymphocyte count a s percentage of total leukocytesOrdered By: Chris Ochoa on 03-04-2025 Lymphocytes/100 WBC Auto (Unsp spec) 10.1 % Low 19-41 [facility] BUN/creatinine ratioOrdered By: Chris Ochoa on 03-04-2025 Urea nitrogen/Creatinine [Mass ratio] 19.7 mg/mg 10-20 [facility] Basic Metabolic Profile (BMP )on 03-04-2025 BUN/CRE 19.7 RATIO Normal 10-20 [facility] Comment on above: Performed By: #### L 501.4021, L100.0100, L500.2500, L503.7505 ####[facility] [address] [place], [address] Calcium [Mass/Vol] 9.3 mg/dL Normal 7.6-11.0 [facility] Comment on above: Performed By: #### L 501.4021, L100.0100, L500.2500, L503.7505 ####[facility] [address] [place], [address] Chloride [Moles/Vol] 102 mmol/L Normal 98-108 [facility] Comment on above: Performed By: #### L 501.4021, L100.0100, L500.2500, L503.7505 ####[facility] [address] [place], [address] CO2 [Moles/Vol] 28.6 mmol/L Normal 21.0-32.0 [facility] Comment on above: Performed By: #### L 501.4021, L100.0100, L500.2500, L503.7505 ####[facility] [address] [place], [address] Creatinine [Mass/Vol] 1.86 mg/dL High 0.70-1.20 [facility] Comment on above: Performed By: #### L 501.4021, L100.0100, L500.2500, L503.7505 ####[facility] [address] [place], [address] ECRCL 28.58 ml/min Low 50-250 [facility] Comment on above: Performed By: #### L 501.4021, L100.0100, L500.2500, L503.7505 ####[facility] [address] [place], [address] GAP 8 Normal 5-15 [facility] Comment on above: Performed By: #### L 501.4021, L100.0100, L500.2500, L503.7505 ####[facility] [address] [place], [address] GFR/1.73 sq M.predicted among non-blacks MDRD (S/P/Bld) [Vol rate/Area] 36 mL/min/{1.73_m2} Low >60 [facility] Comment on above: Result Comment: mL/m in/1.73m2 CKD-EPI Creatinine Equation (2020) Performed By: #### L 501.4021, L100.0100, L500.2500, L503.7505 ####[facility] [address] [place], [address] Glucose [Mass/Vol] 124 mg/dL High 70-99 [facility] Comment on above: Performed By: #### L 501.4021, L100.0100, L500.2500, L503.7505 ####[facility] [address] [place], [address] Potassium [Moles/Vol] 5.2 mmol/L High 3.3-5.1 [facility] Comment on above: Performed By: #### L 501.4021, L100.0100, L500.2500, L503.7505 ####[facility] [address] [place], [address] Sodium [Moles/Vol] 138 mmol/L Normal 133-145 [facility] Comment on above: Performed By: #### L 501.4021, L100.0100, L500.2500, L503.7505 ####[facility] [address] [place], [address] Urea nitrogen [Mass/Vol] 37 mg/dL High 4-19 [facility] Comment on above: Performed By: #### L 501.4021, L100.0100, L500.2500, L503.7505 ####[facility] [address] [place], [address] Basophil percentageOrdered B y: Chris Ochoa on 03-04-2025 Basophils/100 WBC (Bld) 0.4 % 0-1 [facility] Bedside Glucoseon 03-04-2025 FINGERSTICK GLU 80 mg/dL Normal 74-106 [facility] Comment on above: Result Comment: KODY STRONG OF PATIENT CARE PER NURSING PROTOCOL Performed By: #### L 501.080 ####[facility] [address] [place], [address] Bilirubin Test strip Ql (U)O rdered By: Nicola Madison on 03-04-2025 Bilirubin Ql (U) Negative Negative [facility] CBC W/Diff, Automatedon 02-17 Absolute Lymph 0.77 X10 3/uL Low 0.83-4.51 [facility] Comment on above: Performed By: #### L 501.4021, L100.0100, L500.2500, L503.7505 ####[facility] [address] [place], [address] Absolute Neut 6.0 X10 3/uL Normal 2.0-7.7 [facility] Comment on above: Performed By: #### L 501.4021, L100.0100, L500.2500, L503.7505 ####[facility] [address] [place], [address] Basophils/100 WBC (Bld) 0.4 % Normal 0-1 [facility] Comment on above: Performed By: #### L 501.4021, L100.0100, L500.2500, L503.7505 ####[facility] [address] [place], [address] Eosinophils/100 WBC (Bld) 1.6 % Normal 0-5 [facility] Comment on above: Performed By: #### L 501.4021, L100.0100, L500.2500, L503.7505 ####[facility] [address] [place], [address] Erythrocyte distribution width (RBC) [Ratio] 16.5 % High 11.6-14.6 [facility] Comment on above: Performed By: #### L 501.4021, L100.0100, L500.2500, L503.7505 ####[facility] [address] [place], [address] Hematocrit (Bld) [Volume fraction] 33.4 % Low 40-54 [facility] Comment on above: Performed By: #### L 501.4021, L100.0100, L500.2500, L503.7505 ####[facility] [address] [place], [address] Hemoglobin (Bld) [Mass/Vol] 10.1 g/dL Low 13.0-16.5 [facility] Comment on above: Performed By: #### L 501.4021, L100.0100, L500.2500, L503.7505 ####[facility] [address] [place], [address] IG% 0.700 Normal 0.0-0.9 [facility] Comment on above: Result Comment: IG% - Immature Granulocytes (promyelocytes, myelocytes andmetamyelocytes) > 1% indicates that a LEFT SHIFT is Present. Performed By: #### L 501.4021, L100.0100, L500.2500, L503.7505 ####[facility] [address] [place], [address] Lymphocytes/100 WBC (Bld) 10.1 % Low 19-41 [facility] Comment on above: Performed By: #### L 501.4021, L100.0100, L500.2500, L503.7505 ####[facility] [address] [place], [address] MCH (RBC) [Entitic mass] 27.0 pg Normal 27.0-32.0 [facility] Comment on above: Performed By: #### L 501.4021, L100.0100, L500.2500, L503.7505 ####[facility] [address] [place], [address] MCHC (RBC) [Mass/Vol] 30.2 g/dL Low 32-36 [facility] Comment on above: Performed By: #### L 501.4021, L100.0100, L500.2500, L503.7505 ####[facility] [address] [place], [address] MCV (RBC) [Entitic vol] 89.3 fL Normal 80-94 [facility] Comment on above: Performed By: #### L 501.4021, L100.0100, L500.2500, L503.7505 ####[facility] [address] [place], [address] Monocytes/100 WBC (Bld) 9.1 % Normal 0-10 [facility] Comment on above: Performed By: #### L 501.4021, L100.0100, L500.2500, L503.7505 ####[facility] [address] [place], [address] Neutrophils/100 WBC (Bld) 78.1 % High 47-70 [facility] Comment on above: Performed By: #### L 501.4021, L100.0100, L500.2500, L503.7505 ####[facility] [address] [place], [address] Nucleated RBC (Bld) [#/Vol] 0 10*3/uL Normal 0-5 [facility] Comment on above: Performed By: #### L 501.4021, L100.0100, L500.2500, L503.7505 ####[facility] [address] [place], [address] Platelet mean volume (Bld) [Entitic vol] 10.2 fL Normal 6.2-12.0 [facility] Comment on above: Performed By: #### L 501.4021, L100.0100, L500.2500, L503.7505 ####[facility] [address] [place], [address] Platelets (Bld) [#/Vol] 189 10*3/uL Normal 150-450 [facility] Comment on above: Performed By: #### L 501.4021, L100.0100, L500.2500, L503.7505 ####[facility] [address] [place], [address] RBC (Bld) [#/Vol] 3.74 10*6/uL Low 4.6-6.2 [facility] Comment on above: Performed By: #### L 501.4021, L100.0100, L500.2500, L503.7505 ####[facility] [address] [place], [address] RDW SD 54.2 fl High 35.1-43.9 [facility] Comment on above: Performed By: #### L 501.4021, L100.0100, L500.2500, L503.7505 ####[facility] [address] [place], [address] WBC (Bld) [#/Vol] 7.6 10*3/uL Normal 4.4-11.0 [facility] Comment on above: Performed By: #### L 501.4021, L100.0100, L500.2500, L503.7505 ####[facility] [address] [place], [address] Carbon dioxide, total [Moles /volume] in Central venous bloodOrdered By: Chris Ochoa on 03-04-2025 CO2 [Moles/Vol] 28.6 mmol/L 21.0-32.0 [facility] Chest PA and Lateralon 03-04 Chest PA and Lateral Normal [facility] Chloride assayOrdered By: Chino Ochoa on 03-04-2025 Chloride [Moles/Vol] 102 mmol/L 98-108 [facility] Echo Complete W/ Contraston 03-04-2025 Echo Complete W/ Contrast Normal [facility] Emergency Department Summary on 03-04-2025 Emergency Department Summary Normal [facility] Eosinophil percentageOrdered By: Chris Ochoa on 03-04-2025 Eosinophils/100 WBC (Bld) 1.6 % 0-5 [facility] Erythrocyte distribution wid th ratioOrdered By: Chirs Ochoa on 03-04-2025 Erythrocyte distribution width (RBC) [Ratio] 16.5 % High 11.6-14.6 [facility] Erythrocyte distribution wid th standard deviationOrdered By: Chris Ochoa on 03-04-2025 Erythrocyte distribution width (RBC) [Ratio] 54.2 fl High 35.1-43.9 [facility] Glomerular filtration rate ( GFR) estimation/1.73 sq m using serum, plasma, or whole bOrdered By: Chris Ochoa on 03-04-2025 GFR/1.73 sq M.predicted among non-blacks MDRD (S/P/Bld) [Vol rate/Area] 36 mL/min/{1.73_m2} Low >60 [facility] Comment on above: mL/min/1.73m2 CKD-EP I Creatinine Equation (2020) H AND P Exam - Hospitaliston 03-04-2025 H&P Exam - Hospitalist Normal [facility] Hematocrit Auto (Bld) [Volum e fraction]Ordered By: Chris Ochoa on 03-04-2025 Hematocrit (Bld) [Volume fraction] 33.4 % Low 40-54 [facility] Hemoglobin A1con 03-04-2025 HbA1c (Bld) [Mass fraction] 6.3 % High <=5.6 [facility] Comment on above: Result Comment: Norm al < 5.7 % Prediabetic 5.7 - 6.4 % Diabetic >or= 6.5 % Please note range changes. Performed By: #### L 501.5200, L501.9974, L501.5571 ####[facility] [address] [place], [address] Hemoglobin A1c percentageOrd ered By: Nicola Madison on 03-04-2025 HbA1c (Bld) [Mass fraction] 6.3 % High <5.7 [facility] Comment on above: Normal < 5.7 % Predi abetic 5.7 - 6.4 % Diabetic >or= 6.5 % Please note range changes. Hemoglobin measurementOrdere d By: Chris Ochoa on 03-04-2025 Hemoglobin (Bld) [Mass/Vol] 10.1 g/dL Low 13.0-16.5 [facility] Immature granulocytes/100 WB C Auto (Bld)Ordered By: Chris Ochoa on 03-04-2025 Immature granulocytes/100 WBC (Bld) 0.700 % 0.0-0.9 [facility] Comment on above: IG% - Immature Granu locytes (promyelocytes, myelocytes and metamyelocytes) > 1% indicates that a LEFT SHIFT is Present. Ketones Test strip Ql (U)Ord ered By: Nicola Madison on 03-04-2025 Ketones Ql (U) Negative Negative [facility] L499.0042on 03-04-2025 Trop T High Sen 45 ng/L High <=22 [facility] Comment on above: Performed By: #### L 499.0042 ####[facility] [address] [place], [address] L499.0043on 03-04-2025 Trop T High Sen 42 ng/L High <=22 [facility] Comment on above: Performed By: #### L 499.0043 ####[facility] [address] [place], [address] L501.4021on 03-04-2025 Trop T High Sen 44 ng/L High <=22 [facility] Comment on above: Performed By: #### L 501.4021, L100.0100, L500.2500, L503.7505 ####[facility] [address] [place], [address] L503.7505on 03-04-2025 Natriuretic peptide B (Bld) [Mass/Vol] 3316 pg/mL High <=1800 [facility] Comment on above: Result Comment: Hear t Failure Unlikely: < 300 pg/mLHeart Failure Likely< 50 Years: > 450 pg/mL50-75 Years: > 900 pg/mL>75 Years: > 1800 pg/mL Performed By: #### L 501.4021, L100.0100, L500.2500, L503.7505 ####[facility] [address] [place], [address] MCV (mean corpuscular volume ) determinationOrdered By: Chris Ochoa on 03-04-2025 MCV (RBC) [Entitic vol] 89.3 fL 80-94 [facility] Magnesiumon 03-04-2025 Magnesium [Mass/Vol] 2.0 mg/dL Normal 1.5-2.2 [facility] Comment on above: Performed By: #### L 501.5200, L501.9985, L501.9520 ####[facility] [address] [place], [address] Mean corpuscular hemoglobin (MCH) determinationOrdered By: Chris Ochoa on 03-04-2025 MCH (RBC) [Entitic mass] 27.0 pg 27.0-32.0 [facility] Mean corpuscular hemoglobin concentration (MCHC) determinationOrdered By: Chris Ochoa on 03-04-2025 MCHC (RBC) [Mass/Vol] 30.2 g/dL Low 32-36 [facility] Mean platelet volume determi nationOrdered By: Chris Ochoa on 03-04-2025 Platelet mean volume (Bld) [Entitic vol] 10.2 fL 6.2-12.0 [facility] Microscopic analysis of urin e for red blood cells (RBC)Ordered By: Nicola Madison on 03-04-2025 Microscopic analysis of urine for red blood cells (RBC) 5-10 SEEN /hpf 0-5 [facility] Monocyte percentageOrdered B y: Chris Ochoa on 03-04-2025 Monocytes/100 WBC (Bld) 9.1 % 0-10 [facility] Mucus LM Ql (Urine sed)Order ed By: Nicola Madison on 03-04-2025 Mucus Ql (Urine sed) 0 SEEN /hpf [facility] Natriuretic peptide.B prohor girish N-Terminal [Mass/volume] in Serum or PlasmaOrdered By: Chris Ochoa on 03-04-2025 Natriuretic peptide.B prohormone N-Terminal [Mass/Vol] 3316 pg/mL High <1800 [facility] Comment on above: Heart Failure Unlike ly: < 300 pg/mLHeart Failure Likely< 50 Years: > 450 pg/mL50-75 Years: > 900 pg/mL>75 Years: > 1800 pg/mL Neutrophil percentageOrdered By: Chris Ochoa on 03-04-2025 Neutrophils/100 WBC (Bld) 78.1 % High 47-70 [facility] Nitrite Test strip Ql (U)Ord ered By: Nicola Madison on 03-04-2025 Nitrite Ql (U) Positive High Negative [facility] Nucleated red blood cell per centageOrdered By: Chris Ochoa on 03-04-2025 Nucleated RBC/100 WBC (Bld) [Ratio] 0 % 0-5 [facility] Platelet countOrdered By: Chino Ochoa on 03-04-2025 Platelets (Bld) [#/Vol] 189 10*3/uL 150-450 [facility] Potassium measurement (mass/ volume)Ordered By: Chris Ochoa on 03-04-2025 Potassium (Unsp spec) [Mass/Vol] 5.2 mmol/L High 3.3-5.1 [facility] Protein Test strip Ql (U)Ord ered By: Nicola Madison on 03-04-2025 Protein Ql (U) 100 mg/dl High Negative [facility] RBC Auto (Bld) [#/Vol]Ordere d By: Chris Ochoa on 03-04-2025 RBC (Bld) [#/Vol] 3.74 10*6/uL Low 4.6-6.2 [facility] Serum creatinine measurement (mass/volume)Ordered By: Chris Ochoa on 03-04-2025 Creatinine [Mass/Vol] 1.86 mg/dL High 0.70-1.20 [facility] Serum glucose measurement (m ass/volume)Ordered By: Chris Ochoa on 03-04-2025 Glucose [Mass/Vol] 124 mg/dL High 70-99 [facility] Serum or plasma calcium kingsley urement (mass/volume)Ordered By: Chris Ochoa on 03-04-2025 Calcium [Mass/Vol] 9.3 mg/dL 7.6-11.0 [facility] Serum or plasma urea nitroge n measurement (mass/volume)Ordered By: Chris Ochoa on 03-04-2025 Urea nitrogen [Mass/Vol] 37 mg/dL High 4-19 [facility] Sodium levelOrdered By: Chris Ochoa on 03-04-2025 Sodium [Moles/Vol] 138 mmol/L 133-145 [facility] Squamous epithelial cells de tection in urine sediment by light microscopyOrdered By: Nicola Madison on 03-04-2025 Epithelial cells.squamous LM Ql (Urine sed) 0 SEEN /hpf 0-5 [facility] TSH DL <= 0.005 mIU/L QnOrde red By: Nicola Madison on 03-04-2025 TSH Qn 3.780 uIU/mL 0.300-4.20 0 [facility] Thyroid Stim Hormone (TSH)on 03-04-2025 TSH 3.780 uIU/mL Normal 0.300-4.20 0 [facility] Comment on above: Performed By: #### L 501.5200, L501.9985, L501.9520 ####[facility] [address] [place], [address] Troponin T.cardiac [Mass/vol ume] in Serum or Plasma by High sensitivity methodOrdered By: Chris Ochoa on 03-04-2025 Troponin T.cardiac High sensitivity method [Mass/Vol] 42 ng/L High <22 [facility] Troponin T.cardiac High sensitivity method [Mass/Vol] 45 ng/L High <22 [facility] Troponin T.cardiac High sensitivity method [Mass/Vol] 44 ng/L High <22 [facility] Urinalysis, Completeon 03-04 RBC 5-10 SEEN Normal 0-5 [facility] Comment on above: Order Comment: CLEAN CATCH Performed By: #### L 400.0001 ####[facility] [address] [place], [address] BACTERIA 2+ /hpf Normal None Seen [facility] Comment on above: Order Comment: CLEAN CATCH Performed By: #### L 400.0001 ####[facility] [address] [place], [address] WBC >100 SEEN Normal 0-5 [facility] Comment on above: Order Comment: CLEAN CATCH Performed By: #### L 400.0001 ####[facility] [address] [place], [address] EPI,SQUAMOUS 0 SEEN Normal 0-5 [facility] Comment on above: Order Comment: CLEAN CATCH Performed By: #### L 400.0001 ####[facility] [address] [place], [address] Mucus Ql (Urine sed) 0 SEEN Normal [facility] Comment on above: Order Comment: CLEAN CATCH Performed By: #### L 400.0001 ####[facility] [address] [place], [place], [address] Urine clarityOrdered By: Jacob Madison on 03-04-2025 Clarity (U) Cloudy Clear [facility] Urine color determinationOrd ered By: Nicola Madison on 03-04-2025 Color (U) Yellow Yellow [facility] Urine glucose detectionOrder ed By: Nicola Madison on 03-04-2025 Glucose Ql (U) Normal mg/dl Normal [facility] Urine leukocyte esterase det ection by dipstickOrdered By: Nicola Madison on 03-04-2025 Leukocyte esterase Test strip Ql (U) 500 /ul High Negative [facility] Urine pHOrdered By: Nicola stack on 03-04-2025 pH (U) 6.5 [pH] 5.0 - 8.0 [facility] Urine sediment bacteria coun t by microscopy (number/high power field)Ordered By: Nicola Madison on 03-04-2025 Bacteria LM.HPF (Urine sed) [#/Area] 2 /[HPF] None Seen [facility] Urine specific gravity measu rementOrdered By: Nicola Madison on 03-04-2025 Specific gravity (U) [Rel density] 1.010 1.002-1.03 0 [facility] Urine urobilinogen measureme ntOrdered By: Nicola Madison on 03-04-2025 Urobilinogen Ql (U) Normal mg/dl Normal [facility] White blood cell (WBC) count Ordered By: Chris Ochoa on 03-04-2025 WBC (Bld) [#/Vol] 7.6 10*3/uL 4.4-11.0 [facility] White blood cell countOrdere d By: Nicola Madison on 03-04-2025 White blood cell count >100 SEEN /hpf 0-5 [facility] Absolute lymphocyte countOrd ered By: Russ Zamora on 11-06-2024 Lymphocytes Auto (Unsp spec) [#/Vol] 0.82 10*3/uL Low 0.83-4.51 [facility] Absolute neutrophil countOrd ered By: Russ Zamora on 11-06-2024 Neutrophils (Bld) [#/Vol] 8.1 10*3/uL High 2.0-7.7 [facility] Anion gap in Serum or Plasma Ordered By: Russ Zamora on 11-06-2024 Anion gap [Moles/Vol] 10 mmol/L 5-15 [facility] Automated lymphocyte count a s percentage of total leukocytesOrdered By: Russ Zamora on 11-06-2024 Lymphocytes/100 WBC Auto (Unsp spec) 8.1 % Low 19-41 [facility] BUN/creatinine ratioOrdered By: Russ Zamora on 11-06-2024 Urea nitrogen/Creatinine [Mass ratio] 19.3 mg/mg 10-20 [facility] Basophil percentageOrdered B y: Russ Zamora on 11-06-2024 Basophils/100 WBC (Bld) 0.3 % 0-1 [facility] Bilirubin, totalOrdered By: Russ Zamora on 11-06-2024 Bilirubin [Mass/Vol] 0.46 mg/dL 0.00-1.30 [facility] CBC W/Diff, Automatedon 10-19 Absolute Lymph 0.82 X10 3/uL Low 0.83-4.51 [facility] Comment on above: Performed By: #### L 500.4050, L504.2610, L100.0100 ####[facility] [address] [place], [address] Absolute Neut 8.1 X10 3/uL High 2.0-7.7 [facility] Comment on above: Performed By: #### L 500.4050, L504.2610, L100.0100 ####[facility] [address] [place], [address] Basophils/100 WBC (Bld) 0.3 % Normal 0-1 [facility] Comment on above: Performed By: #### L 500.4050, L504.2610, L100.0100 ####[facility] [address] [place], [address] Eosinophils/100 WBC (Bld) 1.7 % Normal 0-5 [facility] Comment on above: Performed By: #### L 500.4050, L504.2610, L100.0100 ####[facility] [address] [place], [address] Erythrocyte distribution width (RBC) [Ratio] 16.8 % High 11.6-14.6 [facility] Comment on above: Performed By: #### L 500.4050, L504.2610, L100.0100 ####[facility] [address] [place], [address] Hematocrit (Bld) [Volume fraction] 34.2 % Low 40-54 [facility] Comment on above: Performed By: #### L 500.4050, L504.2610, L100.0100 ####[facility] [address] [place], [address] Hemoglobin (Bld) [Mass/Vol] 10.7 g/dL Low 13.0-16.5 [facility] Comment on above: Performed By: #### L 500.4050, L504.2610, L100.0100 ####[facility] [address] [place], [address] IG% 0.500 Normal 0.0-0.9 [facility] Comment on above: Result Comment: IG% - Immature Granulocytes (promyelocytes, myelocytes andmetamyelocytes) > 1% indicates that a LEFT SHIFT is Present. Performed By: #### L 500.4050, L504.2610, L100.0100 ####[facility] [address] [place], [address] Lymphocytes/100 WBC (Bld) 8.1 % Low 19-41 [facility] Comment on above: Performed By: #### L 500.4050, L504.2610, L100.0100 ####[facility] [address] [place], [address] MCH (RBC) [Entitic mass] 27.4 pg Normal 27.0-32.0 [facility] Comment on above: Performed By: #### L 500.4050, L504.2610, L100.0100 ####[facility] [address] [place], [address] MCHC (RBC) [Mass/Vol] 31.3 g/dL Low 32-36 [facility] Comment on above: Performed By: #### L 500.4050, L504.2610, L100.0100 ####[facility] [address] [place], [address] MCV (RBC) [Entitic vol] 87.5 fL Normal 80-94 [facility] Comment on above: Performed By: #### L 500.4050, L504.2610, L100.0100 ####[facility] [address] [place], [address] Monocytes/100 WBC (Bld) 8.8 % Normal 0-10 [facility] Comment on above: Performed By: #### L 500.4050, L504.2610, L100.0100 ####[facility] [address] [place], [address] Neutrophils/100 WBC (Bld) 80.6 % High 47-70 [facility] Comment on above: Performed By: #### L 500.4050, L504.2610, L100.0100 ####[facility] [address] [place], [address] Nucleated RBC (Bld) [#/Vol] 0 10*3/uL Normal 0-5 [facility] Comment on above: Performed By: #### L 500.4050, L504.2610, L100.0100 ####[facility] [address] [place], [address] Platelet mean volume (Bld) [Entitic vol] 10.4 fL Normal 6.2-12.0 [facility] Comment on above: Performed By: #### L 500.4050, L504.2610, L100.0100 ####[facility] [address] [place], [address] Platelets (Bld) [#/Vol] 212 10*3/uL Normal 150-450 [facility] Comment on above: Performed By: #### L 500.4050, L504.2610, L100.0100 ####[facility] [address] [place], [address] RBC (Bld) [#/Vol] 3.91 10*6/uL Low 4.6-6.2 [facility] Comment on above: Performed By: #### L 500.4050, L504.2610, L100.0100 ####[facility] [address] [place], [address] RDW SD 53.5 fl High 35.1-43.9 [facility] Comment on above: Performed By: #### L 500.4050, L504.2610, L100.0100 ####[facility] [address] [place], [address] WBC (Bld) [#/Vol] 10.1 10*3/uL Normal 4.4-11.0 [facility] Comment on above: Performed By: #### L 500.4050, L504.2610, L100.0100 ####[facility] [address] [place], [address] Carbon dioxide, total [Moles /volume] in Central venous bloodOrdered By: Russ Zamora on 11-06-2024 CO2 [Moles/Vol] 25.2 mmol/L 21.0-32.0 [facility] Chloride assayOrdered By: Flores Zamora on 11-06-2024 Chloride [Moles/Vol] 105 mmol/L 98-108 [facility] Comprehensive Metabolic Prof ilon 11-06-2024 Albumin [Mass/Vol] 3.8 g/dL Normal 3.4-4.8 [facility] Comment on above: Performed By: #### L 500.4050, L504.2610, L100.0100 ####[facility] [address] [place], [address] Albumin/Globulin [Mass ratio] 0.9 {ratio} Normal 0.9-2.4 [facility] Comment on above: Performed By: #### L 500.4050, L504.2610, L100.0100 ####[facility] [address] [place], [address] ALK PHOS 72 U/L Normal 40-129 [facility] Comment on above: Performed By: #### L 500.4050, L504.2610, L100.0100 ####[facility] [address] [place], [address] ALT [Catalytic activity/Vol] 10 U/L Normal <=46 [facility] Comment on above: Performed By: #### L 500.4050, L504.2610, L100.0100 ####[facility] [address] [place], [address] AST [Catalytic activity/Vol] 16 U/L Normal <=37 [facility] Comment on above: Performed By: #### L 500.4050, L504.2610, L100.0100 ####[facility] [address] [place], [address] Bilirubin [Mass/Vol] 0.46 mg/dL Normal 0.00-1.30 [facility] Comment on above: Performed By: #### L 500.4050, L504.2610, L100.0100 ####[facility] [address] [place], [address] BUN/CRE 19.3 RATIO Normal 10-20 [facility] Comment on above: Performed By: #### L 500.4050, L504.2610, L100.0100 ####[facility] [address] [place], [address] Calcium [Mass/Vol] 9.1 mg/dL Normal 7.6-11.0 [facility] Comment on above: Performed By: #### L 500.4050, L504.2610, L100.0100 ####[facility] [address] [place], [address] Chloride [Moles/Vol] 105 mmol/L Normal 98-108 [facility] Comment on above: Performed By: #### L 500.4050, L504.2610, L100.0100 ####[facility] [address] [place], [address] CO2 [Moles/Vol] 25.2 mmol/L Normal 21.0-32.0 [facility] Comment on above: Performed By: #### L 500.4050, L504.2610, L100.0100 ####[facility] [address] [place], [address] Creatinine [Mass/Vol] 1.87 mg/dL High 0.70-1.20 [facility] Comment on above: Performed By: #### L 500.4050, L504.2610, L100.0100 ####[facility] [address] [place], [address] ECRCL 32.00 ml/min Low 50-250 [facility] Comment on above: Performed By: #### L 500.4050, L504.2610, L100.0100 ####[facility] [address] [place], [address] GAP 10 Normal 5-15 [facility] Comment on above: Performed By: #### L 500.4050, L504.2610, L100.0100 ####[facility] [address] [place], [address] GFR/1.73 sq M.predicted among non-blacks MDRD (S/P/Bld) [Vol rate/Area] 36 mL/min/{1.73_m2} Low >60 [facility] Comment on above: Result Comment: mL/m in/1.73m2 CKD-EPI Creatinine Equation (2020) Performed By: #### L 500.4050, L504.2610, L100.0100 ####[facility] [address] [place], [address] Globulin (S) [Mass/Vol] 4.1 g/dL Normal 2.2-4.2 [facility] Comment on above: Performed By: #### L 500.4050, L504.2610, L100.0100 ####[facility] [address] [place], [address] Glucose [Mass/Vol] 132 mg/dL High 70-99 [facility] Comment on above: Performed By: #### L 500.4050, L504.2610, L100.0100 ####[facility] [address] [place], [address] Potassium [Moles/Vol] 4.8 mmol/L Normal 3.3-5.1 [facility] Comment on above: Performed By: #### L 500.4050, L504.2610, L100.0100 ####[facility] [address] [place], [address] Sodium [Moles/Vol] 140 mmol/L Normal 133-145 [facility] Comment on above: Performed By: #### L 500.4050, L504.2610, L100.0100 ####[facility] [address] [place], [address] T PROT 7.9 g/dL Normal 5.9-8.4 [facility] Comment on above: Performed By: #### L 500.4050, L504.2610, L100.0100 ####[facility] [address] [place], [address] Urea nitrogen [Mass/Vol] 36 mg/dL High 4-19 [facility] Comment on above: Performed By: #### L 500.4050, L504.2610, L100.0100 ####[facility] [address] [place], [address] Eosinophil percentageOrdered By: Russ Zamora on 11-06-2024 Eosinophils/100 WBC (Bld) 1.7 % 0-5 [facility] Erythrocyte distribution wid th ratioOrdered By: Russ Zamora on 11-06-2024 Erythrocyte distribution width (RBC) [Ratio] 16.8 % High 11.6-14.6 [facility] Erythrocyte distribution wid th standard deviationOrdered By: Russ Zamora on 11-06-2024 Erythrocyte distribution width (RBC) [Entitic vol] 53.5 fL High 35.1-43.9 [facility] Erythrocyte distribution width (RBC) [Ratio] 53.5 fl High 35.1-43.9 [facility] Estimation of creatinine rowdy aranceOrdered By: Russ Zamora on 11-06-2024 Estimated Creatinine Clearance Calc 32.00 ml/min Low 50-250 [facility] GFR/1.73 sq M.predicted kaylyn g non-blacks MDRD (S/P/Bld) [Vol rate/Area]Ordered By: Russ Zamora on 11-06-2024 Estimated GFR (MDRD) Non-Af Amer 36 Low >60 [facility] Comment on above: mL/min/1.73m2 CKD-EP I Creatinine Equation (2020) Glomerular filtration rate ( GFR) estimation/1.73 sq m using serum, plasma, or whole bOrdered By: Russ Zamora on 11-06-2024 GFR/1.73 sq M.predicted among non-blacks MDRD (S/P/Bld) [Vol rate/Area] 36 mL/min/{1.73_m2} Low >60 [facility] Comment on above: mL/min/1.73m2 CKD-EP I Creatinine Equation (2020) Hematocrit Auto (Bld) [Volum e fraction]Ordered By: Russ Zamora on 11-06-2024 Hematocrit (Bld) [Volume fraction] 34.2 % Low 40-54 [facility] Hemoglobin measurementOrdere d By: Russ Zamora on 11-06-2024 Hemoglobin (Bld) [Mass/Vol] 10.7 g/dL Low 13.0-16.5 [facility] Immature granulocytes/100 WB C Auto (Bld)Ordered By: Russ Zamora on 11-06-2024 Immature granulocytes/100 WBC (Bld) 0.500 % 0.0-0.9 [facility] Comment on above: IG% - Immature Granu locytes (promyelocytes, myelocytes and metamyelocytes) > 1% indicates that a LEFT SHIFT is Present. LDHon 11-06-2024 LDH 135 U/L Normal 87-241 [facility] Comment on above: Order Comment: 1 Performed By: #### L 500.4050, L504.2610, L100.0100 ####[facility] [address] [place], [address] Laboratory - Chemistry and C hemistry - challengeOrdered By: Russ Zamora on 11-06-2024 AST [Catalytic activity/Vol] 16 U/L <38 [facility] Lactate dehydrogenase (LDH) measurementOrdered By: Russ Zamora on 11-06-2024 LDH [Catalytic activity/Vol] 135 U/L 87-241 [facility] Lymphocytes Auto (Unsp spec) [#/Vol]Ordered By: Russ Zamora on 11-06-2024 Lymphocytes (Bld) [#/Vol] 0.82 10*3/uL Low 0.83-4.51 [facility] Lymphocytes/100 WBC Auto (Un sp spec)Ordered By: Russ Zamora on 11-06-2024 Lymphocytes/100 WBC (Bld) 8.1 % Low 19-41 [facility] MCV (mean corpuscular volume ) determinationOrdered By: Russ Zamora on 11-06-2024 MCV (RBC) [Entitic vol] 87.5 fL 80-94 [facility] Mean corpuscular hemoglobin (MCH) determinationOrdered By: Russ Zamora on 11-06-2024 MCH (RBC) [Entitic mass] 27.4 pg 27.0-32.0 [facility] Mean corpuscular hemoglobin concentration (MCHC) determinationOrdered By: Russ Zamora on 11-06-2024 MCHC (RBC) [Mass/Vol] 31.3 g/dL Low 32-36 [facility] Mean platelet volume determi nationOrdered By: Russ Zamora on 11-06-2024 Platelet mean volume (Bld) [Entitic vol] 10.4 fL 6.2-12.0 [facility] Monocyte percentageOrdered B y: Russ Zamora on 11-06-2024 Monocytes/100 WBC (Bld) 8.8 % 0-10 [facility] Neutrophil percentageOrdered By: Russ Zamora on 11-06-2024 Neutrophils/100 WBC (Bld) 80.6 % High 47-70 [facility] Nucleated red blood cell per centageOrdered By: Russ Zamora on 11-06-2024 Nucleated RBC/100 WBC (Bld) [Ratio] 0 % 0-5 [facility] Oncology Visit Reporton 03- 0 Oncology Visit Report Normal [facility] Platelet countOrdered By: Flores Zamora on 11-06-2024 Platelets (Bld) [#/Vol] 212 10*3/uL 150-450 [facility] Potassium (Unsp spec) [Mass/ Vol]Ordered By: Russ Zamora on 11-06-2024 Potassium [Moles/Vol] 4.8 mmol/L 3.3-5.1 [facility] Potassium measurement (mass/ volume)Ordered By: Russ Zamora on 11-06-2024 Potassium (Unsp spec) [Mass/Vol] 4.8 mmol/L 3.3-5.1 [facility] RBC Auto (Bld) [#/Vol]Ordere d By: Russ Zamora on 11-06-2024 RBC (Bld) [#/Vol] 3.91 10*6/uL Low 4.6-6.2 [facility] Serum creatinine measurement (mass/volume)Ordered By: Russ Zamora on 11-06-2024 Creatinine [Mass/Vol] 1.87 mg/dL High 0.70-1.20 [facility] Serum globulin measurementOr dered By: Russ Zamora on 11-06-2024 Globulin (S) [Mass/Vol] 4.1 g/dL 2.2-4.2 [facility] Serum glucose measurement (m ass/volume)Ordered By: Russ Zamora on 11-06-2024 Glucose [Mass/Vol] 132 mg/dL High 70-99 [facility] Serum or plasma alanine ortiz otransferase (ALT) measurementOrdered By: Russ Zamora on 11-06-2024 ALT [Catalytic activity/Vol] 10 U/L <47 [facility] Serum or plasma albumin kingsley urement (mass/volume)Ordered By: Russ Zamora on 11-06-2024 Albumin [Mass/Vol] 3.8 g/dL 3.4-4.8 [facility] Serum or plasma albumin/glob ulin mass ratioOrdered By: Russ Zamora on 11-06-2024 Albumin/Globulin [Mass ratio] 0.9 {ratio} 0.9-2.4 [facility] Serum or plasma alkaline roosevelt sphatase measurementOrdered By: Russ Zamora on 11-06-2024 ALP [Catalytic activity/Vol] 72 U/L 40-129 [facility] Serum or plasma calcium kingsley urement (mass/volume)Ordered By: Russ Zamora on 11-06-2024 Calcium [Mass/Vol] 9.1 mg/dL 7.6-11.0 [facility] Serum or plasma urea nitroge n measurement (mass/volume)Ordered By: Russ Zamora on 11-06-2024 Urea nitrogen [Mass/Vol] 36 mg/dL High 4-19 [facility] Sodium levelOrdered By: Esau Zamora on 11-06-2024 Sodium [Moles/Vol] 140 mmol/L 133-145 [facility] Total proteinOrdered By: Frantz Zamora on 11-06-2024 Protein [Mass/Vol] 7.9 g/dL 5.9-8.4 [facility] White blood cell (WBC) count Ordered By: Russ Zamora on 11-06-2024 WBC (Bld) [#/Vol] 10.1 10*3/uL 4.4-11.0 [facility] CREATININE FINGERSTICKon Creatinine [Mass/Vol] 1.5 mg/dL High 0.70-1.30 [facility] Comment on above: Performed By: #### L 9100.0200 ####[facility] [address] [place], [address] GFR/1.73 sq M.predicted among non-blacks MDRD (S/P/Bld) [Vol rate/Area] 48.0000 mL/min/{1.73_m2} Low >60 [facility] Comment on above: Performed By: #### L 9100.0200 ####[facility] [address] [place], [place], [address] CT Chest AND Abd W/ Contrast on 10-30-2024 CT Chest AND Abd W/ Contrast Normal [facility] Creatinine measurement at be dsideOrdered By: Russ Zamora on 10-30-2024 Creatinine [Mass/Vol] 1.5 mg/dL High 0.70-1.30 [facility] EGFROrdered By: Russ Zamora on 10-30-2024 GFR/1.73 sq M.predicted among non-blacks MDRD (S/P/Bld) [Vol rate/Area] 48.0000 mL/min/{1.73_m2} Low >60 [facility] Pulmonary Visit Reporton Pulmonary Visit Report Normal [facility] Hemoglobin A1con 10-21-2024 HbA1c (Bld) [Mass fraction] 6.6 % Normal <=5.6 [facility] Comment on above: Performed By: #### L 501.9985 ####[facility] [address] [facility] [place], [place], [address] Hemoglobin A1c percentageOrd ered By: Tonio Fajardo on 10-20-2024 HbA1c (Bld) [Mass fraction] 6.6 % >5.7 [facility] 6 Minute Walk Teston 025 6 Minute Walk Test Normal [facility] Absolute neutrophil countOrd ered By: Leslie Arriaga on 09-25-2024 Neutrophils (Bld) [#/Vol] 6.7 10*3/uL 2.0-7.7 [facility] BNP (brain natriuretic pepti de measurement)Ordered By: Leslie Arriaga on 09-25-2024 Natriuretic peptide B (Bld) [Mass/Vol] 183.7 pg/mL High 0-100 [facility] BNP,B-Type NATRIURETIC PEPTI Adrienne 09-25-2024 Natriuretic peptide B (Bld) [Mass/Vol] 183.7 pg/mL High 0-100 [facility] Comment on above: Performed By: #### L 503.6620, L500.2500, L100.0100 ####[facility] [address] [place], [address] Basic Metabolic Profile (BMP )on 09-25-2024 BUN/CRE 15.4 RATIO Normal 10-20 [facility] Comment on above: Performed By: #### L 503.6620, L500.2500, L100.0100 ####[facility] [address] [place], [address] CA,Total 9.1 mg/dL Normal 8.5-10.1 [facility] Comment on above: Performed By: #### L 503.6620, L500.2500, L100.0100 ####[facility] [address] [place], [address] Chloride [Moles/Vol] 105 mmol/L Normal 98-107 [facility] Comment on above: Performed By: #### L 503.6620, L500.2500, L100.0100 ####[facility] [address] [place], [address] CO2 [Moles/Vol] 28.0 mmol/L Normal 21.0-32.0 [facility] Comment on above: Performed By: #### L 503.6620, L500.2500, L100.0100 ####[facility] [address] [place], [address] Creatinine [Mass/Vol] 2.21 mg/dL High 0.70-1.30 [facility] Comment on above: Result Comment: The validity of the calculated GFR GFRAA in patients over70 years has not been determined. Clinical correlation isessential. Performed By: #### L 503.6620, L500.2500, L100.0100 ####[facility] [address] [place], [address] EST GFR - AA 37 mL/min Low >60 [facility] Comment on above: Result Comment: Afri can Sudanese GFR Calc Performed By: #### L 503.6620, L500.2500, L100.0100 ####[facility] [address] [place], [address] GAP 5 Normal 5-15 [facility] Comment on above: Performed By: #### L 503.6620, L500.2500, L100.0100 ####[facility] [address] [place], [address] GFR/1.73 sq M.predicted among non-blacks MDRD (S/P/Bld) [Vol rate/Area] 31 mL/min/{1.73_m2} Low >60 [facility] Comment on above: Result Comment: Non- GFR Calc Performed By: #### L 503.6620, L500.2500, L100.0100 ####[facility] [address] [place], [address] Glucose [Mass/Vol] 127 mg/dL High 74-106 [facility] Comment on above: Result Comment: Fast ing Glucose result greater than or equal to 126 mg/dLsuggests DIABETES MELLITUS per A.D.A. criteria. Performed By: #### L 503.6620, L500.2500, L100.0100 ####[facility] [address] [place], [address] Potassium [Moles/Vol] 4.3 mmol/L Normal 3.5-5.1 [facility] Comment on above: Performed By: #### L 503.6620, L500.2500, L100.0100 ####[facility] [address] [place], [address] Sodium [Moles/Vol] 138 mmol/L Normal 136-145 [facility] Comment on above: Performed By: #### L 503.6620, L500.2500, L100.0100 ####[facility] [address] [place], [address] Urea nitrogen [Mass/Vol] 34 mg/dL High 7-18 [facility] Comment on above: Performed By: #### L 503.6620, L500.2500, L100.0100 ####[facility] [address] [place], [address] Basophil percentageOrdered B y: Leslie Arriaga on 09-25-2024 Basophils/100 WBC (Bld) 0.6 % 0-1 [facility] Blood urea nitrogen (BUN)/cr eatinine ratioOrdered By: Leslie Arriaga on 09-25-2024 Urea nitrogen/Creatinine [Mass ratio] 15.4 mg/mg 10-20 [facility] CBC W/Diff, Automatedon Absolute Lymph 0.91 X10 3/uL Normal 0.83-4.51 [facility] Comment on above: Performed By: #### L 503.6620, L500.2500, L100.0100 ####[facility] [address] [place], [address] Absolute Neut 6.7 X10 3/uL Normal 2.0-7.7 [facility] Comment on above: Performed By: #### L 503.6620, L500.2500, L100.0100 ####[facility] [address] [place], [address] Basophils/100 WBC (Bld) 0.6 % Normal 0-1 [facility] Comment on above: Performed By: #### L 503.6620, L500.2500, L100.0100 ####[facility] [address] [place], [address] Eosinophils/100 WBC (Bld) 1.1 % Normal 0-5 [facility] Comment on above: Performed By: #### L 503.6620, L500.2500, L100.0100 ####[facility] [address] [place], [address] Erythrocyte distribution width (RBC) [Ratio] 16.2 % High 11.6-14.6 [facility] Comment on above: Performed By: #### L 503.6620, L500.2500, L100.0100 ####[facility] [address] [place], [address] Hematocrit (Bld) [Volume fraction] 36.0 % Low 40-54 [facility] Comment on above: Performed By: #### L 503.6620, L500.2500, L100.0100 ####[facility] [address] [place], [address] Hemoglobin (Bld) [Mass/Vol] 11.1 g/dL Low 13.0-16.5 [facility] Comment on above: Performed By: #### L 503.6620, L500.2500, L100.0100 ####[facility] [address] [place], [address] IG% 0.700 Normal 0.0-0.9 [facility] Comment on above: Result Comment: IG% - Immature Granulocytes (promyelocytes, myelocytes andmetamyelocytes) > 1% indicates that a LEFT SHIFT is Present. Performed By: #### L 503.6620, L500.2500, L100.0100 ####[facility] [address] [place], [address] Lymphocytes/100 WBC (Bld) 10.4 % Low 19-41 [facility] Comment on above: Performed By: #### L 503.6620, L500.2500, L100.0100 ####[facility] [address] [place], [address] MCH (RBC) [Entitic mass] 27.7 pg Normal 27.0-32.0 [facility] Comment on above: Performed By: #### L 503.6620, L500.2500, L100.0100 ####[facility] [address] [place], [address] MCHC (RBC) [Mass/Vol] 30.8 g/dL Low 32-36 [facility] Comment on above: Performed By: #### L 503.6620, L500.2500, L100.0100 ####[facility] [address] [place], [address] MCV (RBC) [Entitic vol] 89.8 fL Normal 80-94 [facility] Comment on above: Performed By: #### L 503.6620, L500.2500, L100.0100 ####[facility] [address] [place], [address] Monocytes/100 WBC (Bld) 10.3 % High 0-10 [facility] Comment on above: Performed By: #### L 503.6620, L500.2500, L100.0100 ####[facility] [address] [place], [address] Neutrophils/100 WBC (Bld) 76.9 % High 47-70 [facility] Comment on above: Performed By: #### L 503.6620, L500.2500, L100.0100 ####[facility] [address] [place], [address] Nucleated RBC (Bld) [#/Vol] 0 10*3/uL Normal 0-5 [facility] Comment on above: Performed By: #### L 503.6620, L500.2500, L100.0100 ####[facility] [address] [place], [address] Platelet mean volume (Bld) [Entitic vol] 10.5 fL Normal 6.2-12.0 [facility] Comment on above: Performed By: #### L 503.6620, L500.2500, L100.0100 ####[facility] [address] [place], [address] Platelets (Bld) [#/Vol] 256 10*3/uL Normal 150-450 [facility] Comment on above: Performed By: #### L 503.6620, L500.2500, L100.0100 ####[facility] [address] [place], [address] RBC (Bld) [#/Vol] 4.01 10*6/uL Low 4.6-6.2 [facility] Comment on above: Performed By: #### L 503.6620, L500.2500, L100.0100 ####[facility] [address] [place], [address] RDW SD 52.7 fl High 35.1-43.9 [facility] Comment on above: Performed By: #### L 503.6620, L500.2500, L100.0100 ####[facility] [address] [place], [address] WBC (Bld) [#/Vol] 8.7 10*3/uL Normal 4.4-11.0 [facility] Comment on above: Performed By: #### L 503.6620, L500.2500, L100.0100 ####[facility] [address] [place], [address] Carbon dioxide measurementOr dered By: Leslie Arriaga on 09-25-2024 CO2 [Moles/Vol] 28.0 mmol/L 21.0-32.0 [facility] Cardiology Visit Reporton Cardiology Visit Report Normal [facility] Chest PA and Lateralon 09-25 Chest PA and Lateral Normal [facility] Chloride measurementOrdered By: Leslie Arriaga on 09-25-2024 Chloride [Moles/Vol] 105 mmol/L 98-107 [facility] Eosinophil percentageOrdered By: Leslie Arriaga on 09-25-2024 Eosinophils/100 WBC (Bld) 1.1 % 0-5 [facility] Erythrocyte distribution wid th ratioOrdered By: Leslie Arriaga on 09-25-2024 Erythrocyte distribution width (RBC) [Ratio] 16.2 % High 11.6-14.6 [facility] Erythrocyte distribution wid th standard deviationOrdered By: Leslie Arriaga on 09-25-2024 Erythrocyte distribution width (RBC) [Entitic vol] 52.7 fL High 35.1-43.9 [facility] Estimated glomerular filtrat ion rate (GFR) AmericanOrdered By: Leslie Arriaga on 09-25-2024 Estimated GFR (MDRD) Amer 37 mL/min Low >60 [facility] Comment on above: GFR Calc Glomerular filtration rate ( GFR) estimationOrdered By: Leslie Arriaga on 09-25-2024 Estimated GFR (MDRD) Non-Af Amer 31 mL/min Low >60 [facility] Comment on above: Non- GFR Calc Glucose measurementOrdered B y: Leslie Arriaga on 09-25-2024 Glucose [Mass/Vol] 127 mg/dL High 74-106 [facility] Comment on above: Fasting Glucose resu lt greater than or equal to 126 mg/dL suggests DIABETES MELLITUS per A.D.A. criteria. Hematocrit Auto (Bld) [Volum e fraction]Ordered By: Leslie Arriaga on 09-25-2024 Hematocrit (Bld) [Volume fraction] 36.0 % Low 40-54 [facility] Hemoglobin measurementOrdere d By: Leslie Arriaga on 09-25-2024 Hemoglobin (Bld) [Mass/Vol] 11.1 g/dL Low 13.0-16.5 [facility] Immature granulocytes/100 WB C Auto (Bld)Ordered By: Leslie Arriaga on 09-25-2024 Immature granulocytes/100 WBC (Bld) 0.700 % 0.0-0.9 [facility] Comment on above: IG% - Immature Granu locytes (promyelocytes, myelocytes and metamyelocytes) > 1% indicates that a LEFT SHIFT is Present. Lymphocytes Auto (Unsp spec) [#/Vol]Ordered By: Leslie Arriaga on 09-25-2024 Lymphocytes (Bld) [#/Vol] 0.91 10*3/uL 0.83-4.51 [facility] Lymphocytes/100 WBC Auto (Un sp spec)Ordered By: Leslie Arriaga on 09-25-2024 Lymphocytes/100 WBC (Bld) 10.4 % Low 19-41 [facility] MCV (mean corpuscular volume ) determinationOrdered By: Leslie Arriaga on 09-25-2024 MCV (RBC) [Entitic vol] 89.8 fL 80-94 [facility] Mean corpuscular hemoglobin (MCH) determinationOrdered By: Leslie Arriaga on 09-25-2024 MCH (RBC) [Entitic mass] 27.7 pg 27.0-32.0 [facility] Mean corpuscular hemoglobin concentration (MCHC) determinationOrdered By: Leslie Arriaga on 09-25-2024 MCHC (RBC) [Mass/Vol] 30.8 g/dL Low 32-36 [facility] Mean platelet volume determi nationOrdered By: Leslie Arriaga on 09-25-2024 Platelet mean volume (Bld) [Entitic vol] 10.5 fL 6.2-12.0 [facility] Monocyte percentageOrdered B y: Leslie Arriaga on 09-25-2024 Monocytes/100 WBC (Bld) 10.3 % High 0-10 [facility] Neutrophil percentageOrdered By: Leslie Arriaga on 09-25-2024 Neutrophils/100 WBC (Bld) 76.9 % High 47-70 [facility] Nucleated red blood cell per centageOrdered By: Leslie Arriaga on 09-25-2024 Nucleated RBC/100 WBC (Bld) [Ratio] 0 % 0-5 [facility] Platelet countOrdered By: Linsey Arriaga on 09-25-2024 Platelets (Bld) [#/Vol] 256 10*3/uL 150-450 [facility] Potassium measurementOrdered By: Leslie Arriaga on 09-25-2024 Potassium [Moles/Vol] 4.3 mmol/L 3.5-5.1 [facility] RBC Auto (Bld) [#/Vol]Ordere d By: Leslie Arriaga on 09-25-2024 RBC (Bld) [#/Vol] 4.01 10*6/uL Low 4.6-6.2 [facility] Serum anion gap measurementO rdered By: Leslie Arriaga on 09-25-2024 Anion gap [Moles/Vol] 5 mmol/L 5-15 [facility] Serum or plasma calcium kingsley urement (mass/volume)Ordered By: Leslie Arriaga on 09-25-2024 Calcium [Mass/Vol] 9.1 mg/dL 8.5-10.1 [facility] Serum or plasma creatinine m easurement (mass/volume)Ordered By: Leslie Arriaga on 09-25-2024 Creatinine [Mass/Vol] 2.21 mg/dL High 0.70-1.30 [facility] Comment on above: The validity of the calculated GFR & GFRAA in patients over 70 years has not been determined. Clinical correlation is essential. Serum or plasma urea nitroge n measurement (mass/volume)Ordered By: Leslie Arriaga on 09-25-2024 Urea nitrogen [Mass/Vol] 34 mg/dL High 7-18 [facility] Sodium levelOrdered By: Brian Arriaga on 09-25-2024 Sodium [Moles/Vol] 138 mmol/L 136-145 [facility] White blood cell (WBC) count Ordered By: Leslie Arriaga on 09-25-2024 WBC (Bld) [#/Vol] 8.7 10*3/uL 4.4-11.0 [facility] Culture, Fungus 8482on 08-04 CUF Normal [facility] Comment on above: Performed By: #### M 100.1999, M600.1999, M100.4001, M100.3000 ####[facility] [address] [place], [place], [id number] Culture, Anaerobic Any Sourc talat 07-09-2024 CUAN Prevotella and Porphyromonas species are generally SUSCEPTIBLE to Cefoxitin, Chloramphenicol, and Metronidazole and are usually RESISTANT to Penicillin. Prevotella oralis Beta Lactamase-Reportable Positive Normal [facility] Comment on above: Performed By: #### M 100.1999, M600.1999, M100.4001, M100.3000 ####[facility] [address] [place], [address] Wound Cultureon 07-05-2024 WC Normal [facility] Comment on above: Performed By: #### M 100.1999, M600.2000, M100.4001, M100.3000 ####[facility] [address] [place], [address] Gram Stainon 07-04-2024 GS Positive Normal [facility] Comment on above: Performed By: #### M 100.1999, M600.2000, M100.4001, M100.3000 ####[facility] [address] [place], [address] Bacteria identified Anaer cx Nom (Unsp spec)Ordered By: Joaquim Suárez on 07-03-2024 Anaerobic Culture Prevotella oralis Abnormal [facility] Fungus identified Cx Nom (Un sp spec)Ordered By: Joaquim Suárez on 07-03-2024 Fungal Culture Ann-Marie parapsilosis Abnormal [facility] Gram stainOrdered By: Bladimir Suárez on 07-03-2024 Microscopic observation Gram stain Nom (Unsp spec) [facility] Routine wound cultureOrdered By: Joaquim Suárez on 07-03-2024 Wound Culture Staphylococcus pseudintermediu Abnormal [facility] Lower Ext Art Exam w/o Exerc soco 06-17-2024 Lower Ext Art Exam w/o Exercis Normal [facility] Venous Duplex US - Hi Extre mon 06-17-2024 Venous Duplex US - Hi Extrem Normal [facility] CBC W/Diff, Automatedon 04-20 Absolute Lymph 0.94 X10 3/uL Normal 0.83-4.51 [facility] Comment on above: Performed By: #### L 504.2610, L100.0100, [id number] ####[facility] [address] [place], [address] Absolute Neut 5.7 X10 3/uL Normal 2.0-7.7 [facility] Comment on above: Performed By: #### L 504.2610, L100.0100, [id number] ####[facility] [address] [place], [address] Basophils/100 WBC (Bld) 0.6 % Normal 0-1 [facility] Comment on above: Performed By: #### L 504.2610, L100.0100, [id number] ####[facility] [address] [place], [address] Eosinophils/100 WBC (Bld) 2.5 % Normal 0-5 [facility] Comment on above: Performed By: #### L 504.2610, L100.0100, [id number] ####[facility] [address] [place], [address] Erythrocyte distribution width (RBC) [Ratio] 16.3 % High 11.6-14.6 [facility] Comment on above: Performed By: #### L 504.2610, L100.0100, [id number] ####[facility] [address] [place], [address] Hematocrit (Bld) [Volume fraction] 36.9 % Low 40-54 [facility] Comment on above: Performed By: #### L 504.2610, L100.0100, [id number] ####[facility] [address] [place], [address] Hemoglobin (Bld) [Mass/Vol] 11.3 g/dL Low 13.0-16.5 [facility] Comment on above: Performed By: #### L 504.2610, L100.0100, L500.4050 ####[facility] [address] [place], [address] IG% 1.400 High 0.0-0.9 [facility] Comment on above: Result Comment: IG% - Immature Granulocytes (promyelocytes, myelocytes andmetamyelocytes) > 1% indicates that a LEFT SHIFT is Present. Performed By: #### L 504.2610, L100.0100, L500.4050 ####[facility] [address] [place], [address] Lymphocytes/100 WBC (Bld) 11.8 % Low 19-41 [facility] Comment on above: Performed By: #### L 504.2610, L100.0100, [id number] ####[facility] [address] [place], [address] MCH (RBC) [Entitic mass] 27.2 pg Normal 27.0-32.0 [facility] Comment on above: Performed By: #### L 504.2610, L100.0100, L500.4050 ####[facility] [address] [place], [address] MCHC (RBC) [Mass/Vol] 30.6 g/dL Low 32-36 [facility] Comment on above: Performed By: #### L 504.2610, L100.0100, [id number] ####[facility] [address] [place], [address] MCV (RBC) [Entitic vol] 88.7 fL Normal 80-94 [facility] Comment on above: Performed By: #### L 504.2610, L100.0100, [id number] ####[facility] [address] [place], [address] Monocytes/100 WBC (Bld) 11.6 % High 0-10 [facility] Comment on above: Performed By: #### L 504.2610, L100.0100, [id number] ####[facility] [address] [place], [address] Neutrophils/100 WBC (Bld) 72.1 % High 47-70 [facility] Comment on above: Performed By: #### L 504.2610, L100.0100, [id number] ####[facility] [address] [place], [address] Nucleated RBC (Bld) [#/Vol] 0 10*3/uL Normal 0-5 [facility] Comment on above: Performed By: #### L 504.2610, L100.0100, [id number] ####[facility] [address] [place], [address] Platelet mean volume (Bld) [Entitic vol] 9.9 fL Normal 6.2-12.0 [facility] Comment on above: Performed By: #### L 504.2610, L100.0100, L500.4050 ####[facility] [address] [place], [address] Platelets (Bld) [#/Vol] 222 10*3/uL Normal 150-450 [facility] Comment on above: Performed By: #### L 504.2610, L100.0100, [id number] ####[facility] [address] [place], [address] RBC (Bld) [#/Vol] 4.16 10*6/uL Low 4.6-6.2 [facility] Comment on above: Performed By: #### L 504.2610, L100.0100, L500.4050 ####[facility] [address] [place], [address] RDW SD 53.2 fl High 35.1-43.9 [facility] Comment on above: Performed By: #### L 504.2610, L100.0100, L500.4050 ####[facility] [address] [place], [address] WBC (Bld) [#/Vol] 8.0 10*3/uL Normal 4.4-11.0 [facility] Comment on above: Performed By: #### L 504.2610, L100.0100, L500.4050 ####[facility] [address] [place], [address] Comprehensive Metabolic Prof ilon 05-05-2024 Albumin [Mass/Vol] 3.1 g/dL Low 3.2-5.0 [facility] Comment on above: Order Comment: 1 Performed By: #### L 504.2610, L100.0100, L500.4050 ####[facility] [address] [place], [address] Albumin/Globulin [Mass ratio] 0.6 {ratio} Low 0.9-2.4 [facility] Comment on above: Order Comment: 1 Performed By: #### L 504.2610, L100.0100, L500.4050 ####[facility] [address] [place], [address] ALK P 60 U/L Normal 45-117 [facility] Comment on above: Order Comment: 1 Performed By: #### L 504.2610, L100.0100, [id number] ####[facility] [address] [place], [address] ALT [Catalytic activity/Vol] 15 U/L Low 16-61 [facility] Comment on above: Order Comment: 1 Performed By: #### L 504.2610, L100.0100, L500.4050 ####[facility] [address] [place], [address] AST [Catalytic activity/Vol] 11 U/L Low 15-37 [facility] Comment on above: Order Comment: 1 Performed By: #### L 504.2610, L100.0100, L500.4050 ####[facility] [address] [place], [address] Bilirubin [Mass/Vol] 0.40 mg/dL Normal 0.20-1.00 [facility] Comment on above: Order Comment: 1 Result Comment: For patients on eltrombopag therapy, use of Dimension [place] TBIL is not recommended. Performed By: #### L 504.2610, L100.0100, L500.4050 ####[facility] [address] [place], [address] BUN/CRE 20.3 RATIO High 10-20 [facility] Comment on above: Order Comment: 1 Performed By: #### L 504.2610, L100.0100, L500.4050 ####[facility] [address] [place], [address] CA,Total 9.3 mg/dL Normal 8.5-10.1 [facility] Comment on above: Order Comment: 1 Performed By: #### L 504.2610, L100.0100, L500.4050 ####[facility] [address] [place], [address] Chloride [Moles/Vol] 104 mmol/L Normal 98-107 [facility] Comment on above: Order Comment: 1 Performed By: #### L 504.2610, L100.0100, L500.4050 ####[facility] [address] [place], [address] CO2 [Moles/Vol] 27.0 mmol/L Normal 21.0-32.0 [facility] Comment on above: Order Comment: 1 Performed By: #### L 504.2610, L100.0100, L500.4050 ####[facility] [address] [place], [address] Creatinine [Mass/Vol] 2.17 mg/dL High 0.70-1.30 [facility] Comment on above: Order Comment: 1 Result Comment: The validity of the calculated GFR GFRAA in patients over70 years has not been determined. Clinical correlation isessential. Performed By: #### L 504.2610, L100.0100, L500.4050 ####[facility] [address] [place], [address] ECRCL 27.63 ml/min Normal [facility] Comment on above: Order Comment: 1 Performed By: #### L 504.2610, L100.0100, L500.4050 ####[facility] [address] [place], [address] EST GFR - AA 38 mL/min Low >60 [facility] Comment on above: Order Comment: 1 Result Comment: Afri can Sudanese GFR Calc Performed By: #### L 504.2610, L100.0100, L500.4050 ####[facility] [address] [place], [address] GAP 3 Low 5-15 [facility] Comment on above: Order Comment: 1 Performed By: #### L 504.2610, L100.0100, L500.4050 ####[facility] [address] [place], [address] GFR/1.73 sq M.predicted among non-blacks MDRD (S/P/Bld) [Vol rate/Area] 31 mL/min/{1.73_m2} Low >60 [facility] Comment on above: Order Comment: 1 Result Comment: Non- GFR Calc Performed By: #### L 504.2610, L100.0100, L500.4050 ####[facility] [address] [place], [address] Globulin (S) [Mass/Vol] 4.9 g/dL High 2.2-4.2 [facility] Comment on above: Order Comment: 1 Performed By: #### L 504.2610, L100.0100, L500.4050 ####[facility] [address] [place], [address] Glucose [Mass/Vol] 130 mg/dL High 74-106 [facility] Comment on above: Order Comment: 1 Result Comment: Fast ing Glucose result greater than or equal to 126 mg/dLsuggests DIABETES MELLITUS per A.D.A. criteria. Performed By: #### L 504.2610, L100.0100, L500.4050 ####[facility] [address] [place], [address] Potassium [Moles/Vol] 4.8 mmol/L Normal 3.5-5.1 [facility] Comment on above: Order Comment: 1 Performed By: #### L 504.2610, L100.0100, L500.4050 ####[facility] [address] [place], [address] Sodium [Moles/Vol] 134 mmol/L Low 136-145 [facility] Comment on above: Order Comment: 1 Performed By: #### L 504.2610, L100.0100, L500.4050 ####[facility] [address] [place], [address] T PROT 8.0 g/dL Normal 6.4-8.2 [facility] Comment on above: Order Comment: 1 Performed By: #### L 504.2610, L100.0100, L500.4050 ####[facility] [address] [place], [address] Urea nitrogen [Mass/Vol] 44 mg/dL High 7-18 [facility] Comment on above: Order Comment: 1 Performed By: #### L 504.2610, L100.0100, L500.4050 ####[facility] [address] [place], [address] Estimated glomerular filtrat ion rate (GFR) AmericanOrdered By: Russ Zamora on 05-05-2024 Estimated GFR (MDRD) Amer 38 mL/min Low >60 [facility] Comment on above: GFR Calc LDHon 05-05-2024 LDH 126 U/L Normal 87-241 [facility] Comment on above: Order Comment: 1 Performed By: #### L 504.2610, L100.0100, L500.4050 ####[facility] [address] [place], [place], [address] Oncology Visit Reporton 04-20 Oncology Visit Report Normal [facility] CREATININE FINGERSTICKon Creatinine [Mass/Vol] 1.4 mg/dL High 0.70-1.30 [facility] Comment on above: Performed By: #### L 9100.0200 ####[facility] [address] [place], [place], [address] GFR/1.73 sq M.predicted among non-blacks MDRD (S/P/Bld) [Vol rate/Area] 50.0000 mL/min/{1.73_m2} Low >60 [facility] Comment on above: Performed By: #### L 9100.0200 ####[facility] [address] [place], [address] CT Chest AND Abd W/ Contrast on 04-28-2024 CT Chest AND Abd W/ Contrast Normal [facility] Miscellaneous procedureOrder ed By: Russ Zamora on 01-28-2024 Miscellaneous Test See comment [facility] Comment on above: Sent directly to [facility] per ordering physician. Bacteria identified Cx Nom ( Wound)Ordered By: Joaquim Suárez on 12-24-2023 Wound Culture Staphylococcus pseudintermediu [facility] Wound Culture Enterococcus faecalis [facility] Wound Culture Streptococcus pyogenes [facility] Gram stain for investigation of transfusion reactionOrdered By: Joaquim Suárez on 12-24-2023 Microscopic observation Gram stain Nom (Unsp spec) [facility] Absolute lymphocyte countOrd ered By: Russ Zamora on 11-06-2023 Lymphocytes Auto (Unsp spec) [#/Vol] 0.95 10*3/uL 0.83-4.51 [facility] Addendum DocumentOrdered By: Russ Zamora on 11-06-2023 Serum Immunofixation Comments Comment . [facility] Comment on above: Protein electrophore sis scan will follow via computer,mail, or prescription clerk delivery. Albumin Elph [Mass/Vol]Order ed By: Russ Zamora on 11-06-2023 Albumin [Mass/Vol] 3.2 g/dL 2.9-4.4 [facility] Alpha 1 globulin Elph [Mass/ Vol]Ordered By: Russ Zamora on 11-06-2023 Itrnh-1-Dzsijjjca (PILY) 0.4 g/dL 0.0-0.4 [facility] Oware-1-Latagoqht (PILY) 1.3 g/dL High 0.4-1.0 [facility] Automated lymphocyte count a s percentage of total leukocytesOrdered By: Russ Zamora on 11-06-2023 Lymphocytes/100 WBC Auto (Unsp spec) 10.5 % 19-41 [facility] Basophil percentageOrdered B y: Russ Zamora on 11-06-2023 Basophils/100 WBC (Bld) 0.6 % 0-1 [facility] Bilirubin [Mass/Vol] 0.30 mg/dL 0.20-1.00 [facility] Comment on above: For patients on eltr ombopag therapy, use of Dimension [place] TBIL is not recommended. Chloride [Moles/Vol] 105 mmol/L 98-107 [facility] Eosinophils/100 WBC (Bld) 2.1 % 0-5 [facility] Glucose [Mass/Vol] 106 mg/dL 74-106 [facility] Comment on above: Fasting Glucose resu lt from 100 to 125 mg/dL suggests IMPAIRED HOMEOSTASIS per A.D.A. criteria. Hemoglobin (Bld) [Mass/Vol] 11.5 g/dL 13.0-16.5 [facility] LDH [Catalytic activity/Vol] 170 U/L 87-241 [facility] Monocytes/100 WBC (Bld) 10.7 % 0-10 [facility] Neutrophils (Bld) [#/Vol] 6.8 10*3/uL 2.0-7.7 [facility] Neutrophils/100 WBC (Bld) 75.2 % 47-70 [facility] Potassium [Moles/Vol] 4.3 mmol/L 3.5-5.1 [facility] Protein [Mass/Vol] 8.2 g/dL 6.4-8.2 [facility] Sodium [Moles/Vol] 135 mmol/L 136-145 [facility] WBC (Bld) [#/Vol] 9.0 10*3/uL 4.4-11.0 [facility] Beta globulin Elph [Mass/Vol ]Ordered By: Russ Zamora on 11-06-2023 Beta-Globulins (PILY) 1.0 g/dL 0.7-1.3 [facility] C-reactive protein measureme nt by high sensitivity methodOrdered By: Russ Zamora on 11-06-2023 C-Reactive Protein Extended Range 22.10 mg/L High 0.0-3.0 [facility] Comment on above: C-Reactive Protein ( CRP) provides useful information for thediagnosis, therapy and monitoring of inflammatory processesand associated diseases. For the evaluation of Relative Riskfor Cardiovascular Disease, a High Sensitivity CRP (HSCRP)should be ordered. C-reactive protein measurement by high sensitivity method 22.10 mg/L High 0.0-3.0 [facility] Comment on above: C-Reactive Protein ( CRP) provides useful information for thediagnosis, therapy and monitoring of inflammatory processesand associated diseases. For the evaluation of Relative Riskfor Cardiovascular Disease, a High Sensitivity CRP (HSCRP)should be ordered. Determination of erythrocyte mean corpuscular volume (MCV)Ordered By: Russ Zamora on 11-06-2023 MCV (RBC) [Entitic vol] 88.0 fL 80-94 [facility] Erythrocyte distribution wid th ratioOrdered By: Russ Zamora on 11-06-2023 Erythrocyte distribution width (RBC) [Ratio] 15.5 % 11.6-14.6 [facility] Erythrocyte distribution wid th standard deviationOrdered By: Russ Zamora on 11-06-2023 Erythrocyte distribution width (RBC) [Entitic vol] 49.5 fL 35.1-43.9 [facility] Erythrocyte sedimentation ra teOrdered By: Russ Zamora on 11-06-2023 ESR (Bld) [Velocity] 21 mm/h High 0-20 [facility] Gamma globulin Elph [Mass/Vo l]Ordered By: Russ Zamora on 11-06-2023 Gamma Globulins (PILY) 1.8 g/dL 0.4-1.8 [facility] Hematocrit Auto (Bld) [Volum e fraction]Ordered By: Russ Zamora on 11-06-2023 Hematocrit (Bld) [Volume fraction] 36.8 % 40-54 [facility] Hemoglobin (Reticulocytes) [ Entitic mass]Ordered By: Russ Zamora on 11-06-2023 Reticulocyte Hemoglobin Equivalent 31.4 pg 30-35 [facility] Hemoglobin in reticulocytes (mass per reticulocyte)Ordered By: Russ Zamora on 11-06-2023 Hemoglobin (Reticulocytes) [Entitic mass] 31.4 pg 30-35 [facility] IgA [Mass/Vol]Ordered By: Flores Zamora on 11-06-2023 Immunoglobulin A 311 mg/dL 61-437 [facility] IgG [Mass/Vol]Ordered By: Flores Zamora on 11-06-2023 Immunoglobulin G 1529 mg/dL 603-1613 [facility] Immature granulocytes/100 WB C Auto (Bld)Ordered By: Russ Zamora on 11-06-2023 Immature granulocytes/100 WBC (Bld) 0.900 % 0.0-0.9 [facility] Comment on above: IG% - Immature Granu locytes (promyelocytes, myelocytes and metamyelocytes) > 1% indicates that a LEFT SHIFT is Present. Immature reticulocyte fracti onOrdered By: Russ Zamora on 11-06-2023 Immature Reticulocyte Fraction 22.10 % High 3.00-15.90 [facility] Immunoglobulin M measurement Ordered By: Russ Zamora on 11-06-2023 Immunoglobulin M 157 mg/dL High 15-143 [facility] Immunoglobulin light chains. kappa [Mass/Vol]Ordered By: Russ Zamora on 11-06-2023 Free [place] Light Chains, Quant 100.3 mg/L High 3.3-19.4 [facility] Immunoglobulin light chains. kappa/Immunoglobulin light chains.lambda (S) [Mass ratio]Ordered By: Russ Zamora on 11-06-2023 Free [place]/Lambda Light Chain Ratio 1.63 0.26-1.65 [facility] Comment on above: Performed at: [address] [id number] Director: Seb Bertrand PhD, Phone: [phone] Interpretation IEP [Interp]O rdered By: Russ Zamora on 11-06-2023 Immunofixation Screen Comment . [facility] Comment on above: No monoclonality det ected. Interpretation of serum or p lasma protein pattern by immunofixation (narrative resultOrdered By: Russ Zamora on 11-06-2023 Protein Fractions Immunofixation Jose Luis [Interp] Not Observed g/dL Not Observed [facility] Laboratory - Chemistry and C hemistry - challengeOrdered By: Russ Zamora on 11-06-2023 Albumin/Globulin [Mass ratio] 0.6 {ratio} 0.9-2.4 [facility] ALP [Catalytic activity/Vol] 62 U/L 45-117 [facility] ALT [Catalytic activity/Vol] 17 U/L 16-61 [facility] CO2 [Moles/Vol] 24.0 mmol/L 21.0-32.0 [facility] Urea nitrogen/Creatinine [Mass ratio] 21.9 mg/mg 10-20 [facility] Laboratory - Hematology and Cell countsOrdered By: Russ Zamora on 11-06-2023 MCH (RBC) [Entitic mass] 27.5 pg 27.0-32.0 [facility] MCHC (RBC) [Mass/Vol] 31.3 g/dL 32-36 [facility] Nucleated RBC/100 WBC (Bld) [Ratio] 0 % 0-5 [facility] Platelet mean volume (Bld) [Entitic vol] 9.1 fL 6.2-12.0 [facility] Platelets (Bld) [#/Vol] 270 10*3/uL 150-450 [facility] Lambda free light chain kingsley urementOrdered By: Russ Zamora on 11-06-2023 Free Lambda Light Chains, Quant 61.5 mg/L High 5.7-26.3 [facility] No Panel InformationOrdered By: Russ Zamora on 11-06-2023 Addendum Document Comment . [facility] Comment on above: Protein electrophore sis scan will follow via computer,mail, or prescription clerk delivery. Estimated Creatinine Clearance Calc 31.12 ml/min [facility] Estimated GFR (MDRD) Amer 43 mL/min >60 [facility] Comment on above: GFR Calc Estimated GFR (MDRD) Non-Af Amer 35 mL/min >60 [facility] Comment on above: Non- GFR Calc Protein Fractions Immunofixa tion Jose Luis [Interp]Ordered By: Russ Zamora on 11-06-2023 M-Arash (PILY) Not Observed g/dL Not Observed [facility] RBC Auto (Bld) [#/Vol]Ordere d By: Russ Zamora on 11-06-2023 RBC (Bld) [#/Vol] 4.18 10*6/uL 4.6-6.2 [facility] Reticulocytes Auto (Bld) [#/ Vol]Ordered By: Russ Zamora on 11-06-2023 Reticulocyte Count 2.12 % High 0.5-1.5 [facility] Reticulocytes/100 RBC (Bld) 2.12 % High 0.5-1.5 [facility] Serum albumin/globulin ratio Ordered By: Russ Zamora on 11-06-2023 Albumin/Globulin (PILY) 0.8 0.7-1.7 [facility] Serum ctrlu-6-uonkwead measu rement by electrophoresisOrdered By: Russ Zamora on 11-06-2023 Alpha 1 globulin Elph [Mass/Vol] 0.4 g/dL 0.0-0.4 [facility] Alpha 1 globulin Elph [Mass/Vol] 1.3 g/dL High 0.4-1.0 [facility] Serum globulin measurement ( mass/volume)Ordered By: Russ Zamora on 11-06-2023 Globulin (S) [Mass/Vol] 4.4 g/dL 2.2-3.9 [facility] Serum immunoglobulin kappa l ight chains/immunoglobulin lambda light chains mass ratioOrdered By: Russ Zamora on 11-06-2023 Immunoglobulin light chains.kappa/Immunoglobu mellissa light chains.lambda (S) [Mass ratio] 1.63 0.26-1.65 [facility] Comment on above: Performed at: [address] [id number] Director: Seb Bertrand PhD, Phone: [phone] Serum or plasma IgA measurem ent (mass/volume)Ordered By: Russ Zamora on 11-06-2023 IgA [Mass/Vol] 311 mg/dL 61-437 [facility] Serum or plasma IgG measurem ent (mass/volume)Ordered By: Russ Zamora on 11-06-2023 IgG [Mass/Vol] 1529 mg/dL 603-1613 [facility] Serum or plasma beta globuli n measurement by electrophoresis (mass/volume)Ordered By: Russ Zamora on 11-06-2023 Beta globulin Elph [Mass/Vol] 1.0 g/dL 0.7-1.3 [facility] Serum or plasma calcium kingsley urement (mass/volume)Ordered By: Russ Zamora on 11-06-2023 Calcium [Mass/Vol] 9.0 mg/dL 8.5-10.1 [facility] Serum or plasma creatinine m easurement (mass/volume)Ordered By: Russ Zamora on 11-06-2023 Creatinine [Mass/Vol] 1.96 mg/dL 0.70-1.30 [facility] Comment on above: The validity of the calculated GFR & GFRAA in patients over 70 years has not been determined. Clinical correlation is essential. Serum or plasma gamma globul in measurement by electrophoresis (mass/volume)Ordered By: Russ Zamora on 11-06-2023 Gamma globulin Elph [Mass/Vol] 1.8 g/dL 0.4-1.8 [facility] Serum or plasma immunoelectr ophoresis interpretation (nominal result)Ordered By: Russ Zamora on 11-06-2023 Interpretation IEP [Interp] Comment . [facility] Comment on above: No monoclonality det ected. Serum or plasma immunoglobul in kappa light chains measurement (mass/volume)Ordered By: Russ Zamora on 11-06-2023 Immunoglobulin light chains.kappa [Mass/Vol] 100.3 mg/L High 3.3-19.4 [facility] Serum or plasma urea nitroge n measurement (mass/volume)Ordered By: Russ Zamora on 11-06-2023 Urea nitrogen [Mass/Vol] 43 mg/dL 7-18 [facility] Serum or plasma uric acid me asurement (mass/volume)Ordered By: Russ Zamora on 11-06-2023 Urate [Mass/Vol] 6.6 mg/dL 3.5-7.2 [facility] Comment on above: The drugs N-Acetylcy steine and Metamizole may falsely depress this assay. Thin prep Papanicolaou smear with manual screeningOrdered By: Russ Zamora on 11-06-2023 Thin prep Papanicolaou smear with manual screening 3.2 g/dL 3.2-5.0 [facility] Thin prep Papanicolaou smear with manual screening 15 U/L 15-37 [facility] Thin prep Papanicolaou smear with manual screening 6 5-15 [facility] Thin prep Papanicolaou smear with manual screening 0.8 0.7-1.7 [facility] Total protein bloodOrdered B y: Russ Zamora on 11-06-2023 Protein [Mass/Vol] 7.6 g/dL 6.0-8.5 [facility] Basophil percentageOrdered B y: Russ Zamora on 10-12-2023 Creatinine [Mass/Vol] 1.5 mg/dL 0.70-1.30 [facility] - Chemistry and C hemistry - challengeOrdered By: Russ Zamora on 10-12-2023 GFR/1.73 sq M.predicted among non-blacks MDRD (S/P/Bld) [Vol rate/Area] 49.0000 mL/min/{1.73_m2} >60 [facility] Absolute lymphocyte countOrd ered By: Leslie Arriaga on 07-26-2023 Lymphocytes Auto (Unsp spec) [#/Vol] 1.22 10*3/uL 0.83-4.51 [facility] Assessment of wrist artery p atency prior to arterial punctureOrdered By: Lorie Mart on 07-26-2023 Arterial patency Wrist artery --pre arterial puncture Positive [facility] Base excessOrdered By: Obed Mart on 07-26-2023 Base excess Calc (BldV) [Moles/Vol] -1 mmol/L -2-2 [facility] Basophil percentageOrdered B y: Leslie Arriaga on 07-26-2023 Basophils/100 WBC (Bld) 0.7 % 0-1 [facility] Chloride [Moles/Vol] 105 mmol/L 98-107 [facility] Eosinophils/100 WBC (Bld) 1.7 % 0-5 [facility] Glucose [Mass/Vol] 99 mg/dL 74-106 [facility] Neutrophils (Bld) [#/Vol] 9.0 10*3/uL 2.0-7.7 [facility] Neutrophils/100 WBC (Bld) 76.3 % 47-70 [facility] Potassium [Moles/Vol] 4.8 mmol/L 3.5-5.1 [facility] Sodium [Moles/Vol] 135 mmol/L 136-145 [facility] WBC (Bld) [#/Vol] 11.7 10*3/uL 4.4-11.0 [facility] Basophil percentageOrdered B y: Lorie Mart on 07-26-2023 Basophil percentage 24.8 mmol/L 22-26 [facility] Basophils/100 WBC (Bld) 95 % 95-99 [facility] Blood erythrocytes count (nu mber/volume)Ordered By: Leslie Arriaga on 07-26-2023 RBC (Bld) [#/Vol] 4.50 10*6/uL 4.6-6.2 [facility] Blood hemoglobin measurement (mass/volume)Ordered By: Leslie Arriaga on 07-26-2023 Hemoglobin (Bld) [Mass/Vol] 12.5 g/dL 13.0-16.5 [facility] Blood lymphocytes/100 leukoc ytesOrdered By: Leslie Arriaga on 07-26-2023 Lymphocytes/100 WBC (Bld) 10.4 % 19-41 [facility] Blood monocytes/100 leukocyt esOrdered By: Leslie Arriaga on 07-26-2023 Monocytes/100 WBC (Bld) 10.2 % 0-10 [facility] Blood platelet mean volumeOr dered By: Leslie Arriaga on 07-26-2023 Platelet mean volume (Bld) [Entitic vol] 10.6 fL 6.2-12.0 [facility] CO2 (BldA) [Partial pressure ]Ordered By: Lorie Mart on 07-26-2023 CO2 (Bld) [Partial pressure] 42.6 mm[Hg] 35-45 [facility] Determination of erythrocyte mean corpuscular volume (MCV)Ordered By: Leslie Arriaga on 07-26-2023 MCV (RBC) [Entitic vol] 87.6 fL 80-94 [facility] Hematocrit Auto (Bld) [Volum e fraction]Ordered By: Leslie Arriaga on 07-26-2023 Hematocrit (Bld) [Volume fraction] 39.4 % 40-54 [facility] Laboratory - Chemistry and C hemistry - challengeOrdered By: Leslie Arriaga on 07-26-2023 CO2 [Moles/Vol] 28.0 mmol/L 21.0-32.0 [facility] Natriuretic peptide B (Bld) [Mass/Vol] 233.5 pg/mL 0-100 [facility] Urea nitrogen/Creatinine [Mass ratio] 25.4 mg/mg 10-20 [facility] Laboratory - Hematology and Cell countsOrdered By: Leslie Arriaga on 07-26-2023 Erythrocyte distribution width (RBC) [Entitic vol] 52.0 fL 35.1-43.9 [facility] Erythrocyte distribution width (RBC) [Ratio] 16.3 % 11.6-14.6 [facility] Immature granulocytes/100 WBC (Bld) 0.700 % 0.0-0.9 [facility] Comment on above: IG% - Immature Granu locytes (promyelocytes, myelocytes and metamyelocytes) > 1% indicates that a LEFT SHIFT is Present. MCH (RBC) [Entitic mass] 27.8 pg 27.0-32.0 [facility] Nucleated RBC/100 WBC (Bld) [Ratio] 0 % 0-5 [facility] MCHC Auto (RBC) [Mass/Vol]Or dered By: Leslie Arriaga on 07-26-2023 MCHC (RBC) [Mass/Vol] 31.7 g/dL 32-36 [facility] No Panel InformationOrdered By: Leslie Arriaga on 07-26-2023 Estimated GFR (MDRD) Amer 40 mL/min >60 [facility] Comment on above: GFR Calc Estimated GFR (MDRD) Non-Af Amer 33 mL/min >60 [facility] Comment on above: Non- GFR Calc No Panel InformationOrdered By: Lorie Mart on 07-26-2023 Blood Gas Sample Site R Radial [facility] Blood Gas Specimen Type ART [facility] Blood Gas Total CO2 26 mmol/L [facility] Blood Gas Vent Mode Not entered [facility] Oxygen Delivery Device [id number] [facility] Oxygen (BldA) [Partial press ure]Ordered By: Lorie Mart on 07-26-2023 Oxygen (Bld) [Partial pressure] 77 mmHG 75-100 [facility] Platelets bldOrdered By: Markus Arriaga on 07-26-2023 Platelets (Bld) [#/Vol] 264 10*3/uL 150-450 [facility] Serum or plasma calcium [place] urement (mass/volume)Ordered By: Leslei Arriaga on 07-26-2023 Calcium [Mass/Vol] 9.3 mg/dL 8.5-10.1 [facility] Serum or plasma creatinine m easurement (mass/volume)Ordered By: Leslie Arriaga on 07-26-2023 Creatinine [Mass/Vol] 2.09 mg/dL 0.70-1.30 [facility] Comment on above: The validity of the calculated GFR & GFRAA in patients over 70 years has not been determined. Clinical correlation is essential. Serum or plasma urea nitroge n measurement (mass/volume)Ordered By: Leslie Arriaga on 07-26-2023 Urea nitrogen [Mass/Vol] 53 mg/dL 7-18 [facility] Thin prep Papanicolaou smear with manual screeningOrdered By: Leslie Arriaga on 07-26-2023 Thin prep Papanicolaou smear with manual screening 2 5-15 [facility] pH measurementOrdered By: Pj Mart on 07-26-2023 pH (Unsp spec) 7.37 [pH] 7.35-7.45 [facility] Anaerobic cultureOrdered By: Joaquim Suárez on 06-22-2023 Bacteria identified Anaer cx Nom (Unsp spec) No anaerobic bacteria isolated. [facility] Bacteria identified Cx Nom ( Wound)Ordered By: Joaquim Suárez on 06-22-2023 Wound Culture Staphylococcus epidermidis [facility] Wound Culture Corynebacterium jeikeium [facility] Fungus cultureOrdered By: Flores Suárez on 06-22-2023 Fungus identified Cx Nom (Unsp spec) [facility] Gram stain for investigation of transfusion reactionOrdered By: Joaquim Suárez on 06-22-2023 Microscopic observation Gram stain Nom (Unsp spec) [facility] Glucose Glucometer (BldC) [M ass/Vol]Ordered By: Joaquim Suárez on 06-08-2023 Glucose [Mass/Vol] 72 mg/dL 74-106 [facility] Comment on above: MANAGEMENT OF PATIEN T CARE PER NURSING PROTOCOL Absolute lymphocyte countOrd ered By: Russ Zamora on 04-17-2023 Lymphocytes Auto (Unsp spec) [#/Vol] 1.02 10*3/uL 0.83-4.51 [facility] Basophil percentageOrdered B y: Russ Zamora on 04-17-2023 Basophils/100 WBC (Bld) 0.5 % 0-1 [facility] Bilirubin [Mass/Vol] 0.30 mg/dL 0.20-1.00 [facility] Comment on above: For patients on eltr ombopag therapy, use of Dimension [place] TBIL is not recommended. Chloride [Moles/Vol] 102 mmol/L 98-107 [facility] Eosinophils/100 WBC (Bld) 2.6 % 0-5 [facility] Glucose [Mass/Vol] 209 mg/dL 74-106 [facility] Comment on above: Glucose result great er than or equal to 200 mg/dLsuggests DIABETES MELLITUS per A.D.A. criteria. LDH [Catalytic activity/Vol] 152 U/L 87-241 [facility] Neutrophils (Bld) [#/Vol] 6.0 10*3/uL 2.0-7.7 [facility] Neutrophils/100 WBC (Bld) 74.2 % 47-70 [facility] Potassium [Moles/Vol] 4.3 mmol/L 3.5-5.1 [facility] Protein [Mass/Vol] 7.8 g/dL 6.4-8.2 [facility] Sodium [Moles/Vol] 136 mmol/L 136-145 [facility] WBC (Bld) [#/Vol] 8.1 10*3/uL 4.4-11.0 [facility] Blood erythrocytes count (nu mber/volume)Ordered By: Russ aZmora on 04-17-2023 RBC (Bld) [#/Vol] 4.45 10*6/uL 4.6-6.2 [facility] Blood hemoglobin measurement (mass/volume)Ordered By: Russ Zamora on 04-17-2023 Hemoglobin (Bld) [Mass/Vol] 12.3 g/dL 13.0-16.5 [facility] Blood lymphocytes/100 leukoc ytesOrdered By: Russ Zamora on 04-17-2023 Lymphocytes/100 WBC (Bld) 12.6 % 19-41 [facility] Blood monocytes/100 leukocyt esOrdered By: Russ Zamora on 04-17-2023 Monocytes/100 WBC (Bld) 9.4 % 0-10 [facility] Blood platelet mean volumeOr dered By: Russ Zamora on 04-17-2023 Platelet mean volume (Bld) [Entitic vol] 9.5 fL 6.2-12.0 [facility] Determination of erythrocyte mean corpuscular volume (MCV)Ordered By: Russ Zamora on 04-17-2023 MCV (RBC) [Entitic vol] 89.9 fL 80-94 [facility] Hematocrit Auto (Bld) [Volum e fraction]Ordered By: Russ Zamora on 04-17-2023 Hematocrit (Bld) [Volume fraction] 40.0 % 40-54 [facility] Laboratory - Chemistry and C hemistry - challengeOrdered By: [place] Sera on 04-17-2023 ALP [Catalytic activity/Vol] 58 U/L 45-117 [facility] ALT [Catalytic activity/Vol] 21 U/L 16-61 [facility] CO2 [Moles/Vol] 27.0 mmol/L 21.0-32.0 [facility] Globulin (S) [Mass/Vol] 4.5 g/dL 2.2-4.2 [facility] Urea nitrogen/Creatinine [Mass ratio] 20.3 mg/mg 10-20 [facility] Laboratory - Hematology and Cell countsOrdered By: Russ Zamora on 04-17-2023 Erythrocyte distribution width (RBC) [Entitic vol] 54.4 fL 35.1-43.9 [facility] Erythrocyte distribution width (RBC) [Ratio] 16.5 % 11.6-14.6 [facility] Immature granulocytes/100 WBC (Bld) 0.700 % 0.0-0.9 [facility] Comment on above: IG% - Immature Granu locytes (promyelocytes, myelocytes and metamyelocytes) > 1% indicates that a LEFT SHIFT is Present. MCH (RBC) [Entitic mass] 27.6 pg 27.0-32.0 [facility] Nucleated RBC/100 WBC (Bld) [Ratio] 0 % 0-5 [facility] MCHC Auto (RBC) [Mass/Vol]Or dered By: Russ Zamora on 04-17-2023 MCHC (RBC) [Mass/Vol] 30.8 g/dL 32-36 [facility] No Panel InformationOrdered By: Russ Zamora on 04-17-2023 Estimated Creatinine Clearance Calc 29.38 ml/min [facility] Estimated GFR (MDRD) Amer 45 mL/min >60 [facility] Comment on above: GFR Calc Estimated GFR (MDRD) Non-Af Amer 37 mL/min >60 [facility] Comment on above: Non- GFR Calc Platelets bldOrdered By: Frantz Zamora on 04-17-2023 Platelets (Bld) [#/Vol] 214 10*3/uL 150-450 [facility] Serum or plasma albumin [place] urement (mass/volume)Ordered By: Russ Zamora on 04-17-2023 Albumin [Mass/Vol] 3.3 g/dL 3.2-5.0 [facility] Serum or plasma albumin/glob ulin mass ratioOrdered By: Russ Zamora on 04-17-2023 Albumin/Globulin [Mass ratio] 0.7 {ratio} 0.9-2.4 [facility] Serum or plasma calcium [place] urement (mass/volume)Ordered By: Russ Zamora on 04-17-2023 Calcium [Mass/Vol] 9.1 mg/dL 8.5-10.1 [facility] Serum or plasma creatinine m easurement (mass/volume)Ordered By: Russ Zamora on 04-17-2023 Creatinine [Mass/Vol] 1.87 mg/dL 0.70-1.30 [facility] Comment on above: The validity of the calculated GFR & GFRAA in patients over 70 years has not been determined. Clinical correlation is essential. Serum or plasma urea nitroge n measurement (mass/volume)Ordered By: Russ Zamora on 04-17-2023 Urea nitrogen [Mass/Vol] 38 mg/dL 7-18 [facility] Thin prep Papanicolaou smear with manual screeningOrdered By: Russ Zamora on 04-17-2023 Thin prep Papanicolaou smear with manual screening 16 U/L 15-37 [facility] Thin prep Papanicolaou smear with manual screening 7 5-15 [facility] Basophil percentageOrdered B y: Russ Zamora on 04-10-2023 Creatinine [Mass/Vol] 1.1 mg/dL 0.70-1.30 [facility] No Panel InformationOrdered By: Russ Zamora on 04-10-2023 Bedside Estimated GFR (eGFR) > 60.0000 mL/min >60 [facility] Anaerobic cultureOrdered By: Bonny Glynn on 01-13-2023 Bacteria identified Anaer cx Nom (Unsp spec) No anaerobic bacteria isolated. [facility] Bacteria identified Cx Nom ( Wound)Ordered By: Bonny Glynn on 01-11-2023 Wound Culture Staphylococcus pseudintercorey hospitalu [facility] Gram stain for investigation of transfusion reactionOrdered By: Bonny Glynn on 01-09-2023 Microscopic observation Gram stain Nom (Unsp spec) [facility] Anaerobic cultureOrdered By: Bonny Glynn on 01-08-2023 Bacteria identified Anaer cx Nom (Unsp spec) No anaerobic bacteria isolated. [facility] Bacteria identified Cx Nom ( Wound)Ordered By: Bonny Glynn on 01-08-2023 Wound Culture Staphylococcus pseudintermediu [facility] Gram stain for investigation of transfusion reactionOrdered By: Bonny Glynn on 01-08-2023 Microscopic observation Gram stain Nom (Unsp spec) [facility] Laboratory - Microbiology an d Antimicrobial susceptibilityOrdered By: Dr. Ochoa on 01-05-2023 Bacteria identified Cx Nom (Bld) No growth in 5 days. [facility] Culture, urineOrdered By: Dr Marianna Ochoa on 01-02-2023 Bacteria identified Cx Nom (U) Culture exhibits no growth. [facility] Influenza virus A and B and SARS-CoV-2 (COVID-19) Ag panel - Upper respiratory specimOrdered By: Dr. Ochoa on 12-31-2022 SARS-CoV-2 & FLU Antigen (Rapid) Influenzae A [facility] Absolute lymphocyte countOrd ered By: Dr. Ochoa on 12-30-2022 Lymphocytes Auto (Unsp spec) [#/Vol] 0.68 10*3/uL 0.83-4.51 [facility] Basophil percentageOrdered B y: Dr. Ochoa on 12-30-2022 Basophil percentage 0-5 SEEN /hpf 0-5 [facility] Basophils/100 WBC (Bld) 0.5 % 0-1 [facility] Bilirubin [Mass/Vol] 0.50 mg/dL 0.20-1.00 [facility] Comment on above: For patients on eltr ombopag therapy, use of Dimension [place] TBIL is not recommended. Chloride [Moles/Vol] 102 mmol/L 98-107 [facility] Eosinophils/100 WBC (Bld) 0.2 % 0-5 [facility] Glucose [Mass/Vol] 119 mg/dL 74-106 [facility] Comment on above: Fasting Glucose resu lt from 100 to 125 mg/dL suggests IMPAIRED HOMEOSTASIS per A.D.A. criteria. Lactate [Moles/Vol] 1.4 mmol/L 0.4-2.0 [facility] Neutrophils (Bld) [#/Vol] 8.8 10*3/uL 2.0-7.7 [facility] Neutrophils/100 WBC (Bld) 83.3 % 47-70 [facility] Potassium [Moles/Vol] 5.2 mmol/L 3.5-5.1 [facility] Protein [Mass/Vol] 8.2 g/dL 6.4-8.2 [facility] Sodium [Moles/Vol] 134 mmol/L 136-145 [facility] WBC (Bld) [#/Vol] 10.6 10*3/uL 4.4-11.0 [facility] Bilirubin Test strip Ql (U)O rdered By: Dr. Ochoa on 12-30-2022 Bilirubin Ql (U) Negative Negative [facility] Blood erythrocytes count (nu mber/volume)Ordered By: Dr. Ochoa on 12-30-2022 RBC (Bld) [#/Vol] 4.36 10*6/uL 4.6-6.2 [facility] Blood hemoglobin measurement (mass/volume)Ordered By: Dr. Ochoa on 12-30-2022 Hemoglobin (Bld) [Mass/Vol] 12.1 g/dL 13.0-16.5 [facility] Blood lymphocytes/100 leukoc ytesOrdered By: Dr. Ochoa on 12-30-2022 Lymphocytes/100 WBC (Bld) 6.4 % 19-41 [facility] Blood monocytes/100 leukocyt esOrdered By: Dr. Ochoa on 12-30-2022 Monocytes/100 WBC (Bld) 9.1 % 0-10 [facility] Blood platelet mean volumeOr dered By: Dr. Ochoa on 12-30-2022 Platelet mean volume (Bld) [Entitic vol] 10.2 fL 6.2-12.0 [facility] Culture, urineOrdered By: Chino Ochoa on 12-30-2022 Bacteria identified Cx Nom (U) Culture exhibits no growth. [facility] Determination of erythrocyte mean corpuscular volume (MCV)Ordered By: Dr. Ochoa on 12-30-2022 MCV (RBC) [Entitic vol] 87.2 fL 80-94 [facility] Hematocrit Auto (Bld) [Volum e fraction]Ordered By: Dr. Ochoa on 12-30-2022 Hematocrit (Bld) [Volume fraction] 38.0 % 40-54 [facility] INR in Blood by Coagulation assayOrdered By: Dr. Ochoa on 12-30-2022 INR Coag (Bld) [Relative time] 1.3 {INR} [facility] Influenza virus A and B and SARS-CoV-2 (COVID-19) Ag panel - Upper respiratory specimOrdered By: Chris Ochoa on 12-30-2022 SARS-CoV-2 & FLU Antigen (Rapid) Influenzae A [facility] Ketones Test strip Ql (U)Ord ered By: Dr. Ochoa on 12-30-2022 Ketones Ql (U) Negative Negative [facility] Laboratory - Chemistry and C hemistry - challengeOrdered By: Dr. Ochoa on 12-30-2022 ALP [Catalytic activity/Vol] 53 U/L 45-117 [facility] ALT [Catalytic activity/Vol] 22 U/L 16-61 [facility] CO2 [Moles/Vol] 25.0 mmol/L 21.0-32.0 [facility] Globulin (S) [Mass/Vol] 4.7 g/dL 2.2-4.2 [facility] Urea nitrogen/Creatinine [Mass ratio] 22.0 mg/mg 10-20 [facility] Laboratory - CoagulationOrde red By: Dr. Ochoa on 12-30-2022 aPTT Coag (Bld) [Time] 38.9 s 24.1-36.2 [facility] PT Coag (PPP) [Time] 15.8 s 11.7-14.9 [facility] Laboratory - Hematology and Cell countsOrdered By: Dr. Ochoa on 12-30-2022 Erythrocyte distribution width (RBC) [Entitic vol] 50.5 fL 35.1-43.9 [facility] Erythrocyte distribution width (RBC) [Ratio] 15.9 % 11.6-14.6 [facility] Immature granulocytes/100 WBC (Bld) 0.500 % 0.0-0.9 [facility] Comment on above: IG% - Immature Granu locytes (promyelocytes, myelocytes and metamyelocytes) > 1% indicates that a LEFT SHIFT is Present. MCH (RBC) [Entitic mass] 27.8 pg 27.0-32.0 [facility] Nucleated RBC/100 WBC (Bld) [Ratio] 0 % 0-5 [facility] Laboratory - Microbiology an d Antimicrobial susceptibilityOrdered By: Chris Ochoa on 12-30-2022 Bacteria identified Cx Nom (Bld) No growth in 5 days. [facility] MCHC Auto (RBC) [Mass/Vol]Or dered By: Dr. Ochoa on 12-30-2022 MCHC (RBC) [Mass/Vol] 31.8 g/dL 32-36 [facility] Mucus LM Ql (Urine sed)Order ed By: Dr. Ochoa on 12-30-2022 Mucus Ql (Urine sed) 0 SEEN /hpf [facility] Nitrite Test strip Ql (U)Ord ered By: Dr. Ochoa on 12-30-2022 Nitrite Ql (U) Negative Negative [facility] No Panel InformationOrdered By: Dr. Ochoa on 12-30-2022 Estimated Creatinine Clearance Calc 27.91 ml/min [facility] Estimated GFR (MDRD) Amer 42 mL/min >60 [facility] Comment on above: GFR Calc Estimated GFR (MDRD) Non-Af Amer 35 mL/min >60 [facility] Comment on above: Non- GFR Calc Platelets bldOrdered By: Dr. Ochoa on 12-30-2022 Platelets (Bld) [#/Vol] 210 10*3/uL 150-450 [facility] Protein Test strip Ql (U)Ord ered By: Dr. Ochoa on 12-30-2022 Protein Ql (U) 100 mg/dl Negative [facility] Serum or plasma albumin [place] urement (mass/volume)Ordered By: Dr. Ochoa on 12-30-2022 Albumin [Mass/Vol] 3.5 g/dL 3.2-5.0 [facility] Serum or plasma albumin/glob ulin mass ratioOrdered By: Dr. Ochoa on 12-30-2022 Albumin/Globulin [Mass ratio] 0.7 {ratio} 0.9-2.4 [facility] Serum or plasma calcium [place] urement (mass/volume)Ordered By: Dr. Ochoa on 12-30-2022 Calcium [Mass/Vol] 9.2 mg/dL 8.5-10.1 [facility] Serum or plasma creatinine m easurement (mass/volume)Ordered By: Dr. Ochoa on 12-30-2022 Creatinine [Mass/Vol] 2.00 mg/dL 0.70-1.30 [facility] Comment on above: The validity of the calculated GFR & GFRAA in patients over 70 years has not been determined. Clinical correlation is essential. Serum or plasma urea nitroge n measurement (mass/volume)Ordered By: Dr. Ochoa on 12-30-2022 Urea nitrogen [Mass/Vol] 44 mg/dL 7-18 [facility] Squamous epithelial cells de tection in urine sediment by light microscopyOrdered By: Dr. Ochoa on 12-30-2022 Epithelial cells.squamous LM Ql (Urine sed) 0 SEEN /hpf 0-5 [facility] Thin prep Papanicolaou smear with manual screeningOrdered By: Dr. Ochoa on 12-30-2022 Thin prep Papanicolaou smear with manual screening 22 U/L 15-37 [facility] Thin prep Papanicolaou smear with manual screening 7 5-15 [facility] Urine blood detectionOrdered By: Dr. Ochoa on 12-30-2022 RBC Ql (U) 25 /ul Negative [facility] RBC Ql (U) 0 SEEN /hpf 0-5 [facility] Urine clarityOrdered By: Dr. Ochoa on 12-30-2022 Clarity (U) Clear Clear [facility] Urine color determinationOrd ered By: Dr. Ochoa on 12-30-2022 Color (U) Yellow Yellow [facility] Urine glucose detectionOrder ed By: Dr. Ochoa on 12-30-2022 Glucose Ql (U) Normal mg/dl Normal [facility] Urine leukocyte esterase det ection by dipstickOrdered By: Dr. Ochoa on 12-30-2022 Leukocyte esterase Test strip Ql (U) 25 /ul Negative [facility] Urine pHOrdered By: Dr. Amy chowdhury on 12-30-2022 pH (U) 7.0 [pH] 5.0 - 8.0 [facility] Urine sediment bacteria coun t by microscopy (number/high power field)Ordered By: Dr. Ochoa on 12-30-2022 Bacteria LM.HPF (Urine sed) [#/Area] 0 /[HPF] None Seen [facility] Urine specific gravity measu rementOrdered By: Dr. Ochoa on 12-30-2022 Specific gravity (U) [Rel density] 1.005 1.002-1.03 0 [facility] Urobilinogen Auto test strip Ql (U)Ordered By: Dr. Ochoa on 12-30-2022 Urobilinogen Ql (U) Normal mg/dl Normal [facility] Absolute lymphocyte countOrd ered By: Dr. Zamora on 10-16-2022 Lymphocytes Auto (Unsp spec) [#/Vol] 1.25 10*3/uL 0.83-4.51 [facility] Basophil percentageOrdered B y: Dr. Zamora on 10-16-2022 Basophils/100 WBC (Bld) 0.6 % 0-1 [facility] Bilirubin [Mass/Vol] 0.30 mg/dL 0.20-1.00 [facility] Comment on above: For patients on eltr ombopag therapy, use of Dimension [place] TBIL is not recommended. Chloride [Moles/Vol] 106 mmol/L 98-107 [facility] Eosinophils/100 WBC (Bld) 1.4 % 0-5 [facility] Glucose [Mass/Vol] 225 mg/dL 74-106 [facility] Comment on above: Glucose result great er than or equal to 200 mg/dLsuggests DIABETES MELLITUS per A.D.A. criteria. LDH [Catalytic activity/Vol] 135 U/L 87-241 [facility] Neutrophils (Bld) [#/Vol] 5.1 10*3/uL 2.0-7.7 [facility] Neutrophils/100 WBC (Bld) 70.2 % 47-70 [facility] Potassium [Moles/Vol] 4.5 mmol/L 3.5-5.1 [facility] Protein [Mass/Vol] 7.8 g/dL 6.4-8.2 [facility] Sodium [Moles/Vol] 139 mmol/L 136-145 [facility] WBC (Bld) [#/Vol] 7.3 10*3/uL 4.4-11.0 [facility] Blood erythrocytes count (nu mber/volume)Ordered By: Dr. Zamora on 10-16-2022 RBC (Bld) [#/Vol] 3.94 10*6/uL 4.6-6.2 [facility] Blood hemoglobin measurement (mass/volume)Ordered By: Dr. Zamora on 10-16-2022 Hemoglobin (Bld) [Mass/Vol] 11.5 g/dL 13.0-16.5 [facility] Blood lymphocytes/100 leukoc ytesOrdered By: Dr. Zamora on 10-16-2022 Lymphocytes/100 WBC (Bld) 17.2 % 19-41 [facility] Blood monocytes/100 leukocyt esOrdered By: Dr. Zamora on 10-16-2022 Monocytes/100 WBC (Bld) 9.8 % 0-10 [facility] Blood platelet mean volumeOr dered By: Dr. Zamora on 10-16-2022 Platelet mean volume (Bld) [Entitic vol] 9.9 fL 6.2-12.0 [facility] Determination of erythrocyte mean corpuscular volume (MCV)Ordered By: Dr. Zamora on 10-16-2022 MCV (RBC) [Entitic vol] 91.1 fL 80-94 [facility] Hematocrit Auto (Bld) [Volum e fraction]Ordered By: Dr. Zamora on 10-16-2022 Hematocrit (Bld) [Volume fraction] 35.9 % 40-54 [facility] Laboratory - Chemistry and C hemistry - challengeOrdered By: Dr. Zamora on 10-16-2022 ALP [Catalytic activity/Vol] 52 U/L 45-117 [facility] ALT [Catalytic activity/Vol] 19 U/L 16-61 [facility] CO2 [Moles/Vol] 26.0 mmol/L 21.0-32.0 [facility] Globulin (S) [Mass/Vol] 4.5 g/dL 2.2-4.2 [facility] Urea nitrogen/Creatinine [Mass ratio] 17.5 mg/mg 10-20 [facility] Laboratory - Hematology and Cell countsOrdered By: Dr. Zamora on 10-16-2022 Erythrocyte distribution width (RBC) [Entitic vol] 50.4 fL 35.1-43.9 [facility] Erythrocyte distribution width (RBC) [Ratio] 15.2 % 11.6-14.6 [facility] Immature granulocytes/100 WBC (Bld) 0.800 % 0.0-0.9 [facility] Comment on above: IG% - Immature Granu locytes (promyelocytes, myelocytes and metamyelocytes) > 1% indicates that a LEFT SHIFT is Present. MCH (RBC) [Entitic mass] 29.2 pg 27.0-32.0 [facility] Nucleated RBC/100 WBC (Bld) [Ratio] 0 % 0-5 [facility] MCHC Auto (RBC) [Mass/Vol]Or dered By: Dr. Zamora on 10-16-2022 MCHC (RBC) [Mass/Vol] 32.0 g/dL 32-36 [facility] No Panel InformationOrdered By: Dr. Zamora on 10-16-2022 Estimated GFR (MDRD) Amer 45 mL/min >60 [facility] Comment on above: GFR Calc Estimated GFR (MDRD) Non-Af Amer 37 mL/min >60 [facility] Comment on above: Non- GFR Calc Platelets bldOrdered By: Dr. Zamora on 10-16-2022 Platelets (Bld) [#/Vol] 193 10*3/uL 150-450 [facility] Serum or plasma albumin kingsley urement (mass/volume)Ordered By: Dr. Zamora on 10-16-2022 Albumin [Mass/Vol] 3.3 g/dL 3.2-5.0 [facility] Serum or plasma albumin/glob ulin mass ratioOrdered By: Dr. Zamora on 10-16-2022 Albumin/Globulin [Mass ratio] 0.7 {ratio} 0.9-2.4 [facility] Serum or plasma calcium kingsley urement (mass/volume)Ordered By: Dr. Zamora on 10-16-2022 Calcium [Mass/Vol] 9.3 mg/dL 8.5-10.1 [facility] Serum or plasma creatinine m easurement (mass/volume)Ordered By: Dr. Zamora on 10-16-2022 Creatinine [Mass/Vol] 1.89 mg/dL 0.70-1.30 [facility] Comment on above: The validity of the calculated GFR & GFRAA in patients over 70 years has not been determined. Clinical correlation is essential. Serum or plasma urea nitroge n measurement (mass/volume)Ordered By: Dr. Zamora on 10-16-2022 Urea nitrogen [Mass/Vol] 33 mg/dL 7-18 [facility] Thin prep Papanicolaou smear with manual screeningOrdered By: Dr. Zamora on 10-16-2022 Thin prep Papanicolaou smear with manual screening 17 U/L 15-37 [facility] Thin prep Papanicolaou smear with manual screening 7 5-15 [facility] Basophil percentageOrdered B y: Dr. Zamora on 10-09-2022 Creatinine [Mass/Vol] 1.4 mg/dL 0.70-1.30 [facility] Laboratory - Chemistry and C hemistry - challengeOrdered By: Dr. Zamora on 10-09-2022 GFR/1.73 sq M.predicted among non-blacks MDRD (S/P/Bld) [Vol rate/Area] 52.0000 mL/min/{1.73_m2} >60 [facility] Culture, urineOrdered By: St gillian Glynn on 10-04-2022 Bacteria identified Cx Nom (U) Staphylococcus epidermidis [facility] Bacteria identified Cx Nom (U) GNR lactose crack off person [facility] Bilirubin Test strip Ql (U)O rdered By: Bonny Glynn on 10-02-2022 Bilirubin Ql (U) Negative Negative [facility] Ketones Test strip Ql (U)Ord ered By: Bonny Glynn on 10-02-2022 Ketones Ql (U) Negative Negative [facility] Nitrite Test strip Ql (U)Ord ered By: Bonny Glynn on 10-02-2022 Nitrite Ql (U) Positive Negative [facility] Protein Test strip Ql (U)Ord ered By: Bonny Glynn on 10-02-2022 Protein Ql (U) 100 mg/dl Negative [facility] Urine blood detectionOrdered By: Bonny Glynn on 10-02-2022 RBC Ql (U) 25 /ul Negative [facility] Urine clarityOrdered By: Ysabel Glynn on 10-02-2022 Clarity (U) Cloudy Clear [facility] Urine color determinationOrd ered By: Bonny Glynn on 10-02-2022 Color (U) Yellow Yellow [facility] Urine glucose detectionOrder ed By: Bonny Glynn on 10-02-2022 Glucose Ql (U) 50 mg/dl Normal [facility] Urine leukocyte esterase det ection by dipstickOrdered By: Bonny Glynn on 10-02-2022 Leukocyte esterase Test strip Ql (U) 500 /ul Negative [facility] Urine pHOrdered By: Bonny orosco on 10-02-2022 pH (U) 6.0 [pH] 5.0 - 8.0 [facility] Urine specific gravity measu rementOrdered By: Bonny Glynn on 10-02-2022 Specific gravity (U) [Rel density] 1.010 1.002-1.03 0 [facility] Urobilinogen Auto test strip Ql (U)Ordered By: Bonny Glynn on 10-02-2022 Urobilinogen Ql (U) Normal mg/dl Normal [facility] Adriana 07-28-2022 CNPN Telephone ([facility]WSTR) -- PEDRO HILLMAN ([id number]) 1945 M Date Time Provider Department 07/28/22 STEVEN RODRIGUEZ [facility] During your visit today, we recorded the following information about you: Steven Rodriguez APRN.SHANI 07/28/2022 1:45 PM Signed In reviewing patient's chart I do not see that he has had any follow up done in regards to his actionable chest xray finding. I left a message on patient's voicemail for him to call back and advise. Steven Rodriguez APRN.SHANI Ortiz Ma 08/04/2022 10:00 AM Signed Pt PCP outside [facility]. Call to pt and notified him of Providers message. Pt states that he did talk to him. FYI. Liseth Oritz Ma Allergies As of Date: 07/28/2022 Noted [...] Status:Closed by STEVEN RODRIGUEZ on 08/09/22 Normal [facility] Anaerobic cultureOrdered By: Bonny Glynn on 07-21-2022 Bacteria identified Anaer cx Nom (Unsp spec) No anaerobic bacteria isolated. [facility] Bacteria identified Cx Nom ( Wound)Ordered By: Bonny Glynn on 07-20-2022 Wound Culture Staphylococcus pseudintermediu [facility] Gram stain for investigation of transfusion reactionOrdered By: Bonny Glynn on 07-19-2022 Microscopic observation Gram stain Nom (Unsp spec) [facility] No Panel InformationOrdered By: Dr. Choi on 06-01-2022 Estimated GFR (MDRD) Amer 63 mL/min >60 [facility] Comment on above: GFR Calc Estimated GFR (MDRD) Non-Af Amer 52 mL/min >60 [facility] Comment on above: Non- GFR Calc Serum or plasma creatinine m easurement (mass/volume)Ordered By: Dr. Choi on 06-01-2022 Creatinine [Mass/Vol] 1.40 mg/dL 0.70-1.30 [facility] Comment on above: The validity of the calculated GFR & GFRAA in patients over 70 years has not been determined. Clinical correlation is essential. Basophil percentageon 2021 Basophil percentage < 0.9 mg/dL 0.70-1.30 [facility] Work Phone: No Panel Informationon 05-22 Bedside Estimated GFR (eGFR) > 60.0000 mL/min >60 [facility] Work Phone: Absolute lymphocyte counton 04-14-2022 Lymphocytes Auto (Unsp spec) [#/Vol] 0.64 10*3/uL 0.83-4.51 [facility] Work Phone: Basophil percentageon 2021 Basophil percentage 0 SEEN /hpf 0-5 [facility] Work Phone: Basophils/100 WBC (Bld) 0.3 % 0-1 [facility] Work Phone: [phone] Bilirubin [Mass/Vol] 0.50 mg/dL 0.20-1.00 [facility] Work Phone: [phone] Comment on above: For patients on eltr ombopag therapy, use of Dimension [place] TBIL is not recommended. Chloride [Moles/Vol] 103 mmol/L 98-107 [facility] Work Phone: [phone] Eosinophils/100 WBC (Bld) 0.5 % 0-5 [facility] Work Phone: [phone] Glucose [Mass/Vol] 46 mg/dL 74-106 [facility] Work Phone: [phone] Comment on above: Glucose result less than 50 mg/dL suggests HYPOGLYCEMIA. Neutrophils (Bld) [#/Vol] 5.0 10*3/uL 2.0-7.7 [facility] Work Phone: [phone] Neutrophils/100 WBC (Bld) 76.1 % 47-70 [facility] Work Phone: [phone] Potassium [Moles/Vol] 4.2 mmol/L 3.5-5.1 [facility] Work Phone: [phone] Protein [Mass/Vol] 8.2 g/dL 6.4-8.2 [facility] Work Phone: [phone] Sodium [Moles/Vol] 136 mmol/L 136-145 [facility] Work Phone: [phone] WBC (Bld) [#/Vol] 6.6 10*3/uL 4.4-11.0 [facility] Work Phone: [phone] Bilirubin Test strip Ql (U)o n 04-14-2022 Bilirubin Ql (U) Negative Negative [facility] Work Phone: [phone] Blood erythrocytes count (nu mber/volume)on 04-14-2022 RBC (Bld) [#/Vol] 5.00 10*6/uL 4.6-6.2 [facility] Work Phone: Blood hemoglobin measurement (mass/volume)on 04-14-2022 Hemoglobin (Bld) [Mass/Vol] 13.9 g/dL 13.0-16.5 [facility] Work Phone: [phone] Blood lymphocytes/100 leukoc yteson 04-14-2022 Lymphocytes/100 WBC (Bld) 9.7 % 19-41 [facility] Work Phone: [phone] Blood monocytes/100 leukocyt eson 04-14-2022 Monocytes/100 WBC (Bld) 12.3 % 0-10 [facility] Work Phone: Blood platelet mean volumeon 04-14-2022 Platelet mean volume (Bld) [Entitic vol] 10.5 fL 6.2-12.0 [facility] Work Phone: Determination of erythrocyte mean corpuscular volume (MCV)on 04-14-2022 MCV (RBC) [Entitic vol] 86.4 fL 80-94 [facility] Work Phone: Glucose Glucometer (BldC) [M ass/Vol]on 04-14-2022 Glucose [Mass/Vol] 113 mg/dL 74-106 [facility] Work Phone: Comment on above: MANAGEMENT OF PATIEN T CARE PER NURSING PROTOCOL Hematocrit Auto (Bld) [Volum e fraction]on 04-14-2022 Hematocrit (Bld) [Volume fraction] 43.2 % 40-54 [facility] Work Phone: INR in Blood by Coagulation assayon 04-14-2022 INR Coag (Bld) [Relative time] 1.1 {INR} [facility] Work Phone: Ketones Test strip Ql (U)on 04-14-2022 Ketones Ql (U) 5 mg/dl Negative [facility] Work Phone: Laboratory - Chemistry and C hemistry - challengeon 04-14-2022 ALP [Catalytic activity/Vol] 63 U/L 45-117 [facility] Work Phone: ALT [Catalytic activity/Vol] 29 U/L 16-61 [facility] Work Phone: CO2 [Moles/Vol] 25.0 mmol/L 21.0-32.0 [facility] Work Phone: [phone] Globulin (S) [Mass/Vol] 5.1 g/dL 2.2-4.2 [facility] Work Phone: [phone] Urea nitrogen/Creatinine [Mass ratio] 37.6 mg/mg 10-20 [facility] Work Phone: [phone] Laboratory - Coagulationon 0 04-14-2022 PT Coag (PPP) [Time] 14.0 s 11.7-14.9 [facility] Work [facility]: [phone] Laboratory - Hematology and Cell countson 04-14-2022 Erythrocyte distribution width (RBC) [Entitic vol] 49.0 fL 35.1-43.9 [facility] Work Phone: [phone] Erythrocyte distribution width (RBC) [Ratio] 15.4 % 11.6-14.6 [facility] Work Phone: [phone] Immature granulocytes/100 WBC (Bld) 1.100 % 0.0-0.9 [facility] Work Phone: [phone] Comment on above: IG% - Immature Granu locytes (promyelocytes, myelocytes and metamyelocytes) > 1% indicates that a LEFT SHIFT is Present. MCH (RBC) [Entitic mass] 27.8 pg 27.0-32.0 [facility] Work Phone: Nucleated RBC/100 WBC (Bld) [Ratio] 0 % 0-5 [facility] Work Phone: MCHC Auto (RBC) [Mass/Vol]on 04-14-2022 MCHC (RBC) [Mass/Vol] 32.2 g/dL 32-36 [facility] Work Phone: Mucus LM Ql (Urine sed)on Mucus Ql (Urine sed) 0 SEEN /hpf [facility] Work Phone: Nitrite Test strip Ql (U)on 04-14-2022 Nitrite Ql (U) Negative Negative [facility] Work Phone: No Panel Informationon 04-14 Estimated Creatinine Clearance Calc 35.56 ml/min [facility] Work Phone: [phone] Estimated GFR (MDRD) Amer 55 mL/min >60 [facility] Work Phone: Comment on above: GFR Calc Estimated GFR (MDRD) Non-Af Amer 46 mL/min >60 [facility] Work Phone: Comment on above: Non- GFR Calc Platelets bldon 04-14-2022 Platelets (Bld) [#/Vol] 293 10*3/uL 150-450 [facility] Work Phone: [phone] Platelets (Bld) [#/Vol] 287 10*3/uL 150-450 [facility] Work Phone: [phone] Protein Test strip Ql (U)on 04-14-2022 Protein Ql (U) 30 mg/dl Negative [facility] Work Phone: [phone] Serum or plasma albumin kings[place] urement (mass/volume)on 04-14-2022 Albumin [Mass/Vol] 3.1 g/dL 3.2-5.0 [facility] Work Phone: [phone] Serum or plasma albumin/glob ulin mass ratioon 04-14-2022 Albumin/Globulin [Mass ratio] 0.6 {ratio} 0.9-2.4 [facility] Work Phone: [phone] Serum or plasma calcium kings[place] urement (mass/volume)on 04-14-2022 Calcium [Mass/Vol] 9.9 mg/dL 8.5-10.1 [facility] Work Phone: [phone] Serum or plasma creatinine m easurement (mass/volume)on 04-14-2022 Creatinine [Mass/Vol] 1.57 mg/dL 0.70-1.30 [facility] Work Phone: Comment on above: The validity of the calculated GFR & GFRAA in patients over 70 years has not been determined. Clinical correlation is essential. Serum or plasma urea nitroge n measurement (mass/volume)on 04-14-2022 Urea nitrogen [Mass/Vol] 59 mg/dL 7-18 [facility] Work Phone: Squamous epithelial cells de tection in urine sediment by light microscopyon 04-14-2022 Epithelial cells.squamous LM Ql (Urine sed) 0-5 SEEN /hpf 0-5 [facility] Work Phone: Thin prep Papanicolaou smear with manual screeningon 04-14-2022 Thin prep Papanicolaou smear with manual screening 30 U/L 15-37 [facility] Work Phone: Thin prep Papanicolaou smear with manual screening 8 5-15 [facility] Work Phone: Urine blood detectionon 03-21 RBC Ql (U) Negative Negative [facility] Work Phone: RBC Ql (U) 0 SEEN /hpf 0-5 [facility] Work Phone: Urine clarityon 04-14-2022 Clarity (U) Clear Clear [facility] Work Phone: Urine color determinationon 04-14-2022 Color (U) Yellow Yellow [facility] Work Phone: Urine glucose detectionon Glucose Ql (U) Normal mg/dl Normal [facility] Work Phone: Urine leukocyte esterase det ection by dipstickon 04-14-2022 Leukocyte esterase Test strip Ql (U) 25 /ul Negative [facility] Work Phone: Urine pHon 04-14-2022 pH (U) 6.0 [pH] 5.0 - 8.0 [facility] Work Phone: Urine sediment bacteria coun t by microscopy (number/high power field)on 04-14-2022 Bacteria LM.HPF (Urine sed) [#/Area] 0 /[HPF] None Seen [facility] Work Phone: Urine specific gravity measu rementon 04-14-2022 Specific gravity (U) [Rel density] 1.010 1.002-1.03 0 [facility] Work Phone: Urobilinogen Auto test strip Ql (U)on 04-14-2022 Urobilinogen Ql (U) Normal mg/dl Normal [facility] Work Phone: Basophil percentageon 2021 Creatinine [Mass/Vol] 1.4 mg/dL 0.70-1.30 [facility] Work Phone: Laboratory - Chemistry and C hemistry - challengeon 04-12-2022 GFR/1.73 sq M.predicted among non-blacks MDRD (S/P/Bld) [Vol rate/Area] 50.0000 mL/min/{1.73_m2} >60 [facility] Work Phone: Adriana 04-06-2022 [facility] Telephone ([facility]) -- PEDRO HILLMAN ([id number]) 1945 M Date Time Provider Department 04/06/22 CARLOS WHELAN [facility] During your visit today, we recorded [...] and rings a fast busy-try again later.Sigrid Baldwinanilrashard VP CONSTRUCTION Sigrid Monroe NIKKI 04/06/2022 6:48 PM Signed Still unable to reach patient and personnel arbitrator is spouse with same number.Sigrid Monroe LPN Jenny Mock 04/07/2022 5:49 PM Signed Unable to reach patient. Mailbox full/Mailbox not set up/ Number incorrect. Please try again later. Jenny Mock 04/08/2022 9:23 AM Signed left message on machine to give call back, different number from pharmacy. [phone]. Jenny Mock 04/08/2022 2:56 PM Signed Notified [...] Status:Closed by JENNY MOCK on 04/08/22 [facility] B[facility] Ur Culton 2 Bacteria identified Cx Nom (U) [id number] Abnormal [facility] Comment on above: Order Comment: Speci men Type: URINE SPECIMEN Ordering Facility: [facility] Address: [address] [place], [place] [id number] Result Comment: >=10 0,000 CFU/ml Streptococcus mitis-oralis group No further workup Performed By: #### 6 30-4 #### [facility] CLIA [id number] [address] [place] [address] [facility] CNOVon 04-05-2022 CNOV Office Visit ([facility] ) -- PEDRO HILLMAN ([id number]) 1945 M Date Time Provider Department 04/05/22 1:15 PM STEVEN RODRIGUEZ [facility] During your visit today, we recorded the following information about you: Temperature Pulse Respiration Blood pressure 101.6 degrees 76/minute 16/minute 122/76 Weight 87.1 kg Steven Rodriguez APRN.[employer] 04/05/2022 3:51 PM Signed Subjective HPI Pedro Melendez Kady is a 77 year old male who [...] - COVID WITH FLUA+B, ROUTINE Steven Rodriguez APRN.SHANI Rodriguez APRN.CNP 04/05/2022 2:27 PM Addendum ASSESSMENT/PLAN: 1. [...] up a (more content not included)... Normal [facility] CNPNon 04-05-2022 CNPN Telephone ([facility]WSTR) -- PEDRO HILLMAN ([id number]) 1945 M Date Time Provider Department 04/05/22 STEVEN RODRIGUEZ [facility] During your visit today, we recorded the following information about you: Steven Rodriguez APRN.CNP 04/05/2022 2:59 PM Signed Radiology report faxed to patient's PCP Dr. Tonio Fajardo at [phone]. Confirmation of fax received. Patient was advised [...] Encounter Status:Closed by STEVEN RODRIGUEZ on 04/05/22 Normal [facility] No Panel InformationOrdered By: [facility] Provider on 04-05-2022 Radiology Result ACTIONABLE Abnormal [facility] Comment on above: This report contains [...] (POC)on 2021 BILIRUBIN UA (POCT) Negative Negative [facility] CLARITY UA (POCT) Cloudy [facility] COLOR UA (POCT) Dark yellow [facility] GLUCOSE UA (POCT) Negative Negative mg/dL [facility] HEMOGLOBIN/BLOOD UA (POCT) Small Abnormal Negative [facility] KETONE UA (POCT) Negative Negative mg/dL [facility] LEUKOCYTES UA (POCT) Large Abnormal Negative [facility] NITRITE UA (POCT) Negative Negative [facility] PH UA (POCT) 6.0 4.5 - [...] be communicated with the ordering provider via Epic staff message or phone message by [employer] within 2 business days of report finalization. Algorithms for management of incidental imaging findings can be found on the [facility] [employer] Sharepoint site at: [email or web address] [email or web address]/[email or web address]/Managi ng%20Incidental%20Findi ngs%20at%20Imaging/Forms/A llItems.aspx Director Translational: JONATHAN Transcribe Date/Time: Apr 05 2022 2:11P Dictated by : SANDEEP ORTIZ MD This examination was interpreted and the report reviewed and electronically signed by: SANDEEP ORTIZ MD on Apr 05 2022 2:13PM EST [id number] ACTIONABLE Invalid Interpretation Code [facility] XR Chest PA and LateralOrder ed By: [facility] Provider on 04-05-2022 Interpretation and review of laboratory results Abnormal [facility] XR Chest PA and Lateralon IMPRESSION: [...] be communicated with the ordering provider via Epic staff message or phone message by [facility] [employer] [facility] within 2 business days of report finalization. Algorithms for management of incidental imaging findings can be found on the [facility] [employer] Sharepoint site at: [email or web address]://[email or web address]/Managi ng%20Incidental%20Findi ngs%20at%20Imaging/Forms/A llItems.aspx Director Translational: JONATHAN Transcribe Date/Time: Apr 05 2022 2:11P [...] the thoracic spine. DIVISION OF RADIOLOGY Provider, [facility] - 04/05/2022 * * *Final Report* * [...] be communicated with the ordering provider via [employer] staff message or phone message by [employer] within 2 business days of report finalization. Algorithms for management of incidental imaging findings can be found on the [facility] Intranet Sharepoint site at: [email or web address] ng%20Incidental%20Findi ngs%20at%20Imaging/Forms/A llItems.aspx Director Translational: JONATHAN Transcribe Date/Time: Apr 05 2022 2:11P Dictated by : SANDEEP ORTIZ MD This examination was interpreted and the report reviewed and electronically signed by: SANDEEP ORTIZ MD on Apr 05 2022 2:13PM EST [facility] Radiology Study observation (narrative) [facility] Anaerobic culture Bacteria identified Anaer cx Nom (Unsp spec) No anaerobic bacteria isolated. [facility] Work Phone: Bacteria identified Anaer cx Nom (Unsp spec) Anaerobic Culture Anaerobic cocci [facility] Work Phone: Bacteria identified Cx Nom ( Wound) Wound Culture Staphylococcus pseudintermediu [facility] Work Phone: Wound Culture Staphylococcus saprophyticus [facility] Work Phone: Gram stain for investigation of transfusion reaction Microscopic observation Gram stain Nom (Unsp spec) [facility] Work Phone: Vital Signs Date Time Vital Sign Value Performing Clinician Facility 04-19-2025 09:54-0400 Diastolic blood pressure 68 mm[Hg] Dr. Tonio Fajardo DO Work Phone: [facility] 04-19-2025 09:54-0400 Heart rate 103 /min Dr. Tonio Fajardo DO Work Phone: [facility] 04-19-2025 09:54-0400 Systolic blood pressure 85 mm[Hg] Dr. Tonio Fajardo DO Work Phone: [facility] 04-19-2025 09:45-0400 Inhaled oxygen flow rate 3 L/min Dr. Tonio Fajardo DO Work Phone: [facility] 04-19-2025 09:45-0400 Respiratory rate 20 /min Dr. Tonio Fajardo DO Work Phone: [facility] 04-19-2025 09:45-0400 SaO2% (BldA) [Mass fraction] 100 % Dr. Tonio Fajardo DO Work Phone: [facility] 04-19-2025 08:22-0400 Body height 167.[address] Tonio Fajardo DO Work Phone: [facility] 04-19-2025 08:22-0400 Body mass index (BMI) [Ratio] 25.7 kg/m2 Dr. Tonio Fajardo DO Work Phone: [facility] 04-19-2025 08:22-0400 Body temperature 97.9 [degF] Dr. Tonio Fajardo DO Work Phone: [facility] 04-19-2025 08:22-0400 Body weight 72.[address] Tonio Fajardo DO Work Phone: [facility] 04-19-2025 08:08-0400 Heart rate 102 /min Dr. Tonio Fajardo DO Work Phone: [facility] 04-19-2025 07:54-0400 Body temperature 97.4 [degF] Dr. Tonio Fajardo DO Work Phone: [facility] 04-19-2025 07:54-0400 Diastolic blood pressure 67 mm[Hg] Dr. Tonio Fajardo DO Work Phone: [facility] 04-19-2025 07:54-0400 Inhaled oxygen flow rate 3 L/min Dr. Tonio Fajardo DO Work Phone: [facility] 04-19-2025 07:54-0400 Respiratory rate 18 /min Dr. Tonio Fajardo DO Work Phone: [facility] 04-19-2025 07:54-0400 SaO2% (BldA) [Mass fraction] 100 % Dr. Tonio Fajardo DO Work Phone: [facility] 04-19-2025 07:54-0400 Systolic blood pressure 118 mm[Hg] Dr. Tonio Fajardo DO Work Phone: [facility] 04-18-2025 11:58-0400 Body weight 67.[address] Tonio Fajardo DO Work Phone: [facility] 04-17-2025 18:17-0400 Body mass index (BMI) [Ratio] 23.8 kg/m2 Dr. Tonio Fajardo DO Work Phone: [facility] 04-13-2025 02:37-0400 Inhaled oxygen flow rate 15 L/min Dr. Tonio Fajardo DO Work Phone: [facility] 04-13-2025 02:37-0400 SaO2% (BldA) [Mass fraction] 100 % Dr. Tonio Fajardo DO Work Phone: [facility] 04-13-2025 00:56-0400 Body temperature 97.8 [degF] Dr. Tonio Fajardo DO Work Phone: [facility] 04-13-2025 00:56-0400 Diastolic blood pressure 71 mm[Hg] Dr. Tonio Fajardo DO Work Phone: [facility] 04-13-2025 00:56-0400 Heart rate 106 /min Dr. Tonio Fajardo DO Work Phone: [facility] 04-13-2025 00:56-0400 Respiratory rate 21 /min Dr. Tonio Fajardo DO Work Phone: [facility] 04-13-2025 00:56-0400 Systolic blood pressure 129 mm[Hg] Dr. Tonio Fajardo DO Work Phone: [facility] 04-12-2025 23:03-0400 Body temperature 97.8 [degF] Dr. Tonio Fajardo DO Work Phone: [facility] 04-12-2025 23:03-0400 Diastolic blood pressure 80 mm[Hg] Dr. Tonio Fajardo DO Work Phone: [facility] 04-12-2025 23:03-0400 Heart rate 109 /min Dr. Tonio Fajardo DO Work Phone: [facility] 04-12-2025 23:03-0400 Respiratory rate 21 /min Dr. Tonio Fajardo DO Work Phone: [facility] 04-12-2025 23:03-0400 SaO2% (BldA) [Mass fraction] 100 % Dr. Tonio Fajardo DO Work Phone: [facility] 04-12-2025 23:03-0400 Systolic blood pressure 142 mm[Hg] Dr. Tonio Fajardo DO Work Phone: [facility] 04-12-2025 22:00-0400 Inhaled oxygen flow rate 15 L/min Dr. Tonio Fajardo DO Work Phone: [facility] 04-12-2025 18:05-0400 Body height 167.[address] Tonio Fajardo DO Work Phone: [facility] 04-12-2025 18:05-0400 Body mass index (BMI) [Ratio] 25.4 kg/m2 Dr. Tonio Fajardo DO Work Phone: [facility] 04-12-2025 18:05-0400 Body weight 71.[address] Tonio Fajardo DO Work Phone: [facility] 04-12-2025 16:46-0400 Heart rate 115 /min Dr. Tonio Fajardo DO Work Phone: [facility] 04-12-2025 15:40-0400 Diastolic blood pressure 74 mm[Hg] Dr. Tonio Fajardo DO Work Phone: [facility] 04-12-2025 15:40-0400 Inhaled oxygen flow rate 3 L/min Dr. Tonio Fajardo DO Work Phone: [facility] 04-12-2025 15:40-0400 Respiratory rate 22 /min Dr. Tonio Fajardo DO Work Phone: [facility] 04-12-2025 15:40-0400 SaO2% (BldA) [Mass fraction] 96 % Dr. Tonio Fajardo DO Work Phone: [facility] 04-12-2025 15:40-0400 Systolic blood pressure 146 mm[Hg] Dr. Tonio Fajardo DO Work Phone: [facility] 04-12-2025 08:52-0400 Body temperature 96.7 [degF] Dr. Tonio Fajardo DO Work Phone: [facility] 04-11-2025 12:48-0400 Body weight 70.[address] Tonio Fajardo DO Work Phone: [facility] 04-10-2025 23:00-0400 Body mass index (BMI) [Ratio] 25.2 kg/m2 Dr. Tonio Fajardo DO Work Phone: [facility] 04-10-2025 16:21-0400 Body temperature 98.6 [degF] Dr. Tonio Fajardo DO Work Phone: [facility] 04-10-2025 16:21-0400 Diastolic blood pressure 82 mm[Hg] Dr. Tonio Fajardo DO Work Phone: [facility] 04-10-2025 16:21-0400 Heart rate 106 /min Dr. Tonio Fajardo DO Work Phone: [facility] 04-10-2025 16:21-0400 Inhaled oxygen flow rate 3 L/min Dr. Tonio Fajardo DO Work Phone: [facility] 04-10-2025 16:21-0400 Respiratory rate 18 /min Dr. Tonio Fajardo DO Work Phone: [facility] 04-10-2025 16:21-0400 SaO2% (BldA) [Mass fraction] 100 % Dr. Tonio Fajardo DO Work Phone: [facility] 04-10-2025 16:21-0400 Systolic blood pressure 142 mm[Hg] Dr. Tonio Fajardo DO Work Phone: [facility] 04-10-2025 14:30-0400 Body height 167.[address] Tonio Fajardo DO Work Phone: [facility] 04-10-2025 14:30-0400 Body weight 75.[address] Tonio Fajardo DO Work Phone: [facility] 04-10-2025 05:10-0400 Body mass index (BMI) [Ratio] 26.7 kg/m2 Dr. Tonio Fajardo DO Work Phone: [facility] 04-07-2025 00:00-0400 Inhaled oxygen concentration 35 % Dr. Tonio Fajardo DO Work Phone: [facility] 04-05-2025 20:00-0400 Diastolic blood pressure 65 mm[Hg] Dr. Tonio Fajardo DO Work Phone: [facility] 04-05-2025 20:00-0400 Heart rate 103 /min Dr. Tonio Fajardo DO Work Phone: [facility] 04-05-2025 20:00-0400 Inhaled oxygen flow rate 4 L/min Dr. Tonio Fajardo DO Work Phone: [facility] 04-05-2025 20:00-0400 Respiratory rate 25 /min Dr. Tonio Fajardo DO Work Phone: [facility] 04-05-2025 20:00-0400 SaO2% (BldA) [Mass fraction] 92 % Dr. Tonio Fajardo DO Work Phone: [facility] 04-05-2025 20:00-0400 Systolic blood pressure 119 mm[Hg] Dr. Tonio Fajardo DO Work Phone: [facility] 04-05-2025 19:12-0400 Body temperature 98 [degF] Dr. Tonio Fajardo DO Work Phone: [facility] 04-05-2025 16:41-0400 Body height 167.[address] Tonio Fajardo DO Work Phone: [facility] 04-05-2025 16:41-0400 Body mass index (BMI) [Ratio] 28 kg/m2 Dr. Tonio Fajardo DO Work Phone: [facility] 04-05-2025 16:41-0400 Body weight 78.[address] Tonio Fajardo DO Work Phone: [facility] 03-17-2025 13:07-0400 Body height 167.[address] Tonio Fajardo DO Work Phone: [facility] 03-17-2025 13:07-0400 Body mass index (BMI) [Ratio] 26.6 kg/m2 Dr. Tonio Fajardo DO Work Phone: [facility] 03-17-2025 13:07-0400 Body weight 74.[address] Tonio Fajardo DO Work Phone: [facility] 03-17-2025 13:07-0400 Diastolic blood pressure 60 mm[Hg] Dr. Tonio Fajardo DO Work Phone: [facility] 03-17-2025 13:07-0400 Heart rate 101 /min Dr. Tonio Fajardo DO Work Phone: [facility] 03-17-2025 13:07-0400 Inhaled oxygen flow rate 3 L/min Dr. Tonio Fajardo DO Work Phone: [facility] 03-17-2025 13:07-0400 Respiratory rate 20 /min Dr. Tonio Fajardo DO Work Phone: [facility] 03-17-2025 13:07-0400 SaO2% (BldA) [Mass fraction] 96 % Dr. Tonio Fajardo DO Work Phone: [facility] 03-17-2025 13:07-0400 Systolic blood pressure 124 mm[Hg] Dr. Tonio Fajardo DO Work Phone: [facility] 03-15-2025 18:32-0400 Body temperature 98.1 [degF] Dr. Tonio Fajardo DO Work Phone: [facility] 03-15-2025 18:32-0400 Diastolic blood pressure 71 mm[Hg] Dr. Tonio Fajardo DO Work Phone: [facility] 03-15-2025 18:32-0400 Heart rate 101 /min Dr. Tonio Fajardo DO Work Phone: [facility] 03-15-2025 18:32-0400 Respiratory rate 18 /min Dr. Tonio Fajardo DO Work Phone: [facility] 03-15-2025 18:32-0400 SaO2% (BldA) [Mass fraction] 93 % Dr. Tonio Fajardo DO Work Phone: [facility] 03-15-2025 18:32-0400 Systolic blood pressure 168 mm[Hg] Dr. Tonio Fajardo DO Work Phone: [facility] 03-15-2025 16:58-0400 Body height 167.[address] Tonio Fajardo DO Work Phone: [facility] 03-15-2025 16:58-0400 Body mass index (BMI) [Ratio] 27.8 kg/m2 Dr. Tonio Fajardo DO Work Phone: [facility] 03-15-2025 16:58-0400 Body weight 78.[address] Tonio Fajardo DO Work Phone: [facility] 03-15-2025 16:58-0400 Inhaled oxygen flow rate 3 L/min Dr. Tonio Fajardo DO Work Phone: [facility] 03-09-2025 16:22-0400 Body temperature 98.5 [degF] Dr. Tonio Fajardo DO Work Phone: [facility] 03-09-2025 16:22-0400 Heart rate 78 /min Dr. Tonio Fajardo DO Work Phone: [facility] 03-09-2025 16:22-0400 Inhaled oxygen flow rate 3 L/min Dr. Tonio Fajardo DO Work Phone: [facility] 03-09-2025 16:22-0400 Respiratory rate 20 /min Dr. Tonio Fajardo DO Work Phone: [facility] 03-09-2025 16:22-0400 SaO2% (BldA) [Mass fraction] 92 % Dr. Tonio Fajardo DO Work Phone: [facility] 03-09-2025 11:48-0400 Inhaled oxygen flow rate 2 L/min Dr. Tonio Fajardo DO Work Phone: [facility] 03-09-2025 11:48-0400 SaO2% (BldA) [Mass fraction] 79 % Dr. Tonio Fajardo DO Work Phone: [facility] 03-09-2025 11:11-0400 Body height 167.[address] Tonio Fajardo DO Work Phone: [facility] 03-09-2025 11:11-0400 Body weight 78.[address] Tonio Fajardo DO Work Phone: [facility] 03-09-2025 10:00-0400 Diastolic blood pressure 51 mm[Hg] Dr. Tonio Fajardo DO Work Phone: [facility] 03-09-2025 10:00-0400 Heart rate 97 /min Dr. Tonio Fajardo DO Work Phone: [facility] 03-09-2025 10:00-0400 Systolic blood pressure 129 mm[Hg] Dr. Tonio Fajardo DO Work Phone: [facility] 03-09-2025 05:00-0400 Body mass index (BMI) [Ratio] 28 kg/m2 Dr. Tonio Fajardo DO Work Phone: [facility] 03-04-2025 20:49-0400 Body temperature 98.6 [degF] Dr. Tonio Fajardo DO Work Phone: [facility] 03-04-2025 20:49-0400 Diastolic blood pressure 70 mm[Hg] Dr. Tonio Fajardo DO Work Phone: [facility] 03-04-2025 20:49-0400 Heart rate 114 /min Dr. Tonio Fajardo DO Work Phone: [facility] 03-04-2025 20:49-0400 Respiratory rate 20 /min Dr. Tonio Fajardo DO Work Phone: [facility] 03-04-2025 20:49-0400 SaO2% (BldA) [Mass fraction] 100 % Dr. Tonio Fajardo DO Work Phone: [facility] 03-04-2025 20:49-0400 Systolic blood pressure 153 mm[Hg] Dr. Tonio Fajardo DO Work Phone: [facility] 03-04-2025 20:00-0400 Inhaled oxygen flow rate 4 L/min Dr. Tonio Fajardo DO Work Phone: [facility] 03-04-2025 15:01-0400 Body height 167.[address] Tonio Fajardo DO Work Phone: [facility] 03-04-2025 15:01-0400 Body mass index (BMI) [Ratio] 25.9 kg/m2 Dr. Tonio Fajardo DO Work Phone: [facility] 03-04-2025 15:01-0400 Body weight 73.[address] Tonio Fajardo DO Work Phone: [facility] 11-06-2024 14:45-0400 Body height 167.[address] Tonio Fajardo DO Work Phone: [facility] 11-06-2024 14:45-0400 Body mass index (BMI) [Ratio] 28.5 kg/m2 Dr. Tonio Fajardo DO Work Phone: [facility] 11-06-2024 14:45-0400 Body temperature 98.5 [degF] Dr. Tonio Fajardo DO Work Phone: [facility] 11-06-2024 14:45-0400 Body weight 80.[address] Tonio Fajardo DO Work Phone: [facility] 11-06-2024 14:45-0400 Diastolic blood pressure 55 mm[Hg] Dr. Tonio Fajardo DO Work Phone: [facility] 11-06-2024 14:45-0400 Heart rate 55 /min Dr. Tonio Fajardo DO Work Phone: [facility] 11-06-2024 14:45-0400 Respiratory rate 18 /min Dr. Tonio Fajardo DO Work Phone: [facility] 11-06-2024 14:45-0400 SaO2% (BldA) [Mass fraction] 95 % Dr. Tonio Fajardo DO Work Phone: [facility] 11-06-2024 14:45-0400 Systolic blood pressure 116 mm[Hg] Dr. Tonio Fajardo DO Work Phone: [facility] 10-23-2024 09:06-0500 Body mass index (BMI) [Ratio] 28.5 kg/m2 Dr. Tonio Fajardo DO Work Phone: [facility] 10-23-2024 09:06-0500 Body temperature 97.4 [degF] Dr. Tonio Fajardo DO Work Phone: [facility] 10-23-2024 09:06-0500 Body weight 80.[address] Tonio Fajardo DO Work Phone: [facility] 10-23-2024 09:06-0500 Diastolic blood pressure 56 mm[Hg] Dr. Tonio Fajardo DO Work Phone: [facility] 10-23-2024 09:06-0500 Heart rate 52 /min Dr. Tonio Fajardo DO Work Phone: [facility] 10-23-2024 09:06-0500 Inhaled oxygen flow rate 3 L/min Dr. Tonio Fajardo DO Work Phone: [facility] 10-23-2024 09:06-0500 Respiratory rate 26 /min Dr. Tonio Fajardo DO Work Phone: [facility] 10-23-2024 09:06-0500 SaO2% (BldA) [Mass fraction] 97 % Dr. Tonio aFjardo DO Work Phone: [facility] 10-23-2024 09:06-0500 Systolic blood pressure 128 mm[Hg] Dr. Tonio Fajardo DO Work Phone: [facility] 10-16-2024 13:24-0500 Body height 167.[address] Tonio Fajardo DO Work Phone: [facility] 10-16-2024 13:24-0500 Body weight 78.[address] Tonio Fajardo DO Work Phone: [facility] 10-16-2024 13:24-0500 Heart rate 98 /min Dr. Tonio Fajardo DO Work Phone: [facility] 10-16-2024 13:24-0500 Inhaled oxygen flow rate 2 L/min Dr. Tonio Fajardo DO Work Phone: [facility] 10-16-2024 13:24-0500 SaO2% (BldA) [Mass fraction] 96 % Dr. Tonio Fajardo DO Work Phone: [facility] 09-25-2024 12:59-0500 Body mass index (BMI) [Ratio] 27.7 kg/m2 Dr. Tonio Fajardo DO Work Phone: [phone] [place] [address] 09-25-2024 12:59-0500 Body weight 80.[address] Tonio Fajardo DO Work Phone: [facility] 09-25-2024 12:59-0500 Diastolic blood pressure 75 mm[Hg] Dr. Tonio Fajardo DO Work Phone: [facility] 09-25-2024 12:59-0500 Heart rate 99 /min Dr. Tonio Fajardo DO Work Phone: [facility] 09-25-2024 12:59-0500 Respiratory rate 18 /min Dr. Tonio Fajardo DO Work Phone: [facility] 09-25-2024 12:59-0500 SaO2% (BldA) [Mass fraction] 90 % Dr. Tonio Fajardo DO Work Phone: [facility] 09-25-2024 12:59-0500 Systolic blood pressure 120 mm[Hg] Dr. Tonio Fajardo DO Work Phone: [facility] 11-12-2023 13:22-0400 Body height 170.[address] Tonio Fajardo Work Phone: [facility] 11-12-2023 13:22-0400 Body mass index (BMI) [Ratio] 28 kg/m2 Dr. Tonio Fajardo Work Phone: [facility] 11-12-2023 13:22-0400 Body temperature 97.9 [degF] Dr. Tonio Fajardo Work Phone: [facility] 11-12-2023 13:22-0400 Body weight 81.[address] Tonio Fajardo Work Phone: [facility] 11-12-2023 13:22-0400 Diastolic blood pressure 62 mm[Hg] Dr. Tonio Fajardo Work Phone: [facility] 11-12-2023 13:22-0400 Heart rate 103 /min Dr. Tonio Fajardo Work Phone: [facility] 11-12-2023 13:22-0400 Respiratory rate 18 /min Dr. Tonio Fajardo Work Phone: [facility] 11-12-2023 13:22-0400 SaO2% (BldA) [Mass fraction] 98 % Dr. Tonio Fajardo Work Phone: [facility] 11-12-2023 13:22-0400 Systolic blood pressure 97 mm[Hg] Dr. Tonio Fajardo Work Phone: [facility] 10-31-2023 12:05-0400 Body mass index (BMI) [Ratio] 27.3 kg/m2 Dr. Tonio Fajardo Work Phone: [facility] 10-31-2023 12:05-0400 Body temperature 98.2 [degF] Dr. Tonio Fajardo Work Phone: [facility] 10-31-2023 12:05-0400 Body weight 79.[address] Tonio Fajardo Work Phone: [facility] 10-31-2023 12:05-0400 Diastolic blood pressure 71 mm[Hg] Dr. Tonio Fajardo Work Phone: [facility] 10-31-2023 12:05-0400 Heart rate 78 /min Dr. Tonio Fajardo Work Phone: [facility] 10-31-2023 12:05-0400 Respiratory rate 18 /min Dr. Tonio Fajardo Work Phone: [facility] 10-31-2023 12:05-0400 SaO2% (BldA) [Mass fraction] 94 % Dr. Tonio Fajardo Work Phone: [facility] 10-31-2023 12:05-0400 Systolic blood pressure 119 mm[Hg] Dr. Tonio Fajardo Work Phone: [facility] 10-18-2023 14:51-0500 Body mass index (BMI) [Ratio] 28 kg/m2 Dr. Tonio Fajardo Work Phone: [facility] 10-18-2023 14:51-0500 Body temperature 98.9 [degF] Dr. Tonio Fajardo Work Phone: [facility] 10-18-2023 14:51-0500 Body weight 81.[address] Tonio Fajardo Work Phone: [facility] 10-18-2023 14:51-0500 Diastolic blood pressure 60 mm[Hg] Dr. Tonio Fajardo Work Phone: [facility] 10-18-2023 14:51-0500 Heart rate 98 /min Dr. Tonio Fajardo Work Phone: [facility] 10-18-2023 14:51-0500 Respiratory rate 18 /min Dr. Tonio Fajardo Work Phone: [facility] 10-18-2023 14:51-0500 SaO2% (BldA) [Mass fraction] 96 % Dr. Tonio Fajardo Work Phone: [facility] 10-18-2023 14:51-0500 Systolic blood pressure 114 mm[Hg] Dr. Tonio Fajardo Work Phone: [facility] 08-29-2023 12:52-0500 Body height 170.[address] Tonio Fajardo Work Phone: [facility] 08-29-2023 12:52-0500 Body mass index (BMI) [Ratio] 27.8 kg/m2 Dr. Tonio Fajardo Work Phone: [facility] 08-29-2023 12:52-0500 Body weight 80.[address] Tonio Fajardo Work Phone: [facility] 08-29-2023 12:52-0500 Diastolic blood pressure 71 mm[Hg] Dr. Tonio Fajardo Work Phone: [facility] 08-29-2023 12:52-0500 Heart rate 95 /min Dr. Tonio Fajardo Work Phone: [facility] 08-29-2023 12:52-0500 Respiratory rate 18 /min Dr. Tonio Fajardo Work Phone: [facility] 08-29-2023 12:52-0500 SaO2% (BldA) [Mass fraction] 97 % Dr. Tonio Fajardo Work Phone: [facility] 08-29-2023 12:52-0500 Systolic blood pressure 111 mm[Hg] Dr. Tonio Fajardo Work Phone: [facility] 07-25-2023 07:50-0500 Body height 170.[address] Tonio Fajardo Work Phone: [facility] 07-25-2023 07:50-0500 Body mass index (BMI) [Ratio] 29.4 kg/m2 Dr. Tonio Fajardo Work Phone: [facility] 07-25-2023 07:50-0500 Body temperature 96.2 [degF] Dr. Tonio Fajardo Work Phone: [facility] 07-25-2023 07:50-0500 Body weight 85.[address] Tonio Fajardo Work Phone: [facility] 07-25-2023 07:50-0500 Diastolic blood pressure 75 mm[Hg] Dr. Tonio Fajardo Work Phone: [facility] 07-25-2023 07:50-0500 Heart rate 53 /min Dr. Tonio Fajardo Work Phone: [facility] 07-25-2023 07:50-0500 Respiratory rate 20 /min Dr. Tonio Fajardo Work Phone: [facility] 07-25-2023 07:50-0500 SaO2% (BldA) [Mass fraction] 82 % Dr. Tonio Fajardo Work Phone: [facility] 07-25-2023 07:50-0500 Systolic blood pressure 119 mm[Hg] Dr. Tonio Fajardo Work Phone: [facility] 06-08-2023 14:33-0400 Body temperature 97.1 [degF] Dr. Tonio Fajardo Work Phone: [facility] 06-08-2023 14:33-0400 Diastolic blood pressure 67 mm[Hg] Dr. Tonio Fajardo Work Phone: [facility] 06-08-2023 14:33-0400 Heart rate 103 /min Dr. Tonio Fajardo Work Phone: [facility] 06-08-2023 14:33-0400 Respiratory rate 14 /min Dr. Tonio Fajardo Work Phone: [facility] 06-08-2023 14:33-0400 SaO2% (BldA) [Mass fraction] 93 % Dr. Tonio Fajardo Work Phone: [facility] 06-08-2023 14:33-0400 Systolic blood pressure 133 mm[Hg] Dr. Tonio Fajardo Work Phone: [facility] 06-08-2023 12:20-0400 Body height 170.[address] Tonio Fajardo Work Phone: [facility] 06-08-2023 12:20-0400 Body mass index (BMI) [Ratio] 29.3 kg/m2 Dr. Tonio Fajardo Work Phone: [facility] 06-08-2023 12:20-0400 Body weight [address] Tonio Fajardo Work Phone: [facility] 05-02-2023 13:50-0400 Diastolic blood pressure 63 mm[Hg] Dr. Tonio Fajardo Work Phone: [facility] 05-02-2023 13:50-0400 Heart rate 97 /min Dr. Tonio Fajardo Work Phone: [facility] 05-02-2023 13:50-0400 Respiratory rate 18 /min Dr. Tonio Fajardo Work Phone: [facility] 05-02-2023 13:50-0400 Systolic blood pressure 113 mm[Hg] Dr. Tonio Fajardo Work Phone: [facility] 04-25-2023 14:04-0400 Body temperature 97.9 [degF] Dr. Tonio Fajardo Work Phone: [facility] 04-18-2023 13:24-0400 Body temperature 97.5 [degF] Dr. Tonio Fajardo Work Phone: [facility] 04-18-2023 13:24-0400 Diastolic blood pressure 77 mm[Hg] Dr. Tonio Fajardo Work Phone: [facility] 04-18-2023 13:24-0400 Heart rate 109 /min Dr. Tonio Fajardo Work Phone: [facility] 04-18-2023 13:24-0400 Respiratory rate 16 /min Dr. Tonio Fajardo Work Phone: [facility] 04-18-2023 13:24-0400 Systolic blood pressure 141 mm[Hg] Dr. Tonio Fajardo Work Phone: [facility] 04-17-2023 11:08-0400 Body height 167.[address] Tonio Fajardo Work Phone: [facility] 04-17-2023 11:08-0400 Body mass index (BMI) [Ratio] 30.2 kg/m2 Dr. Tonio Fajardo Work Phone: [facility] 04-17-2023 11:08-0400 Body temperature 98.6 [degF] Dr. Tonio Fajardo Work Phone: [facility] 04-17-2023 11:08-0400 Body weight 84.[address] Tonio Fajardo Work Phone: [facility] 04-17-2023 11:08-0400 Diastolic blood pressure 87 mm[Hg] Dr. Tonio Fajardo Work Phone: [facility] 04-17-2023 11:08-0400 Heart rate 87 /min Dr. Tonio Fajardo Work Phone: [facility] 04-17-2023 11:08-0400 Respiratory rate 18 /min Dr. Tonio Fajardo Work Phone: [facility] 04-17-2023 11:08-0400 SaO2% (BldA) [Mass fraction] 95 % Dr. Tonio Fajardo Work Phone: [facility] 04-17-2023 11:08-0400 Systolic blood pressure 130 mm[Hg] Dr. Tonio Fajardo Work Phone: [facility] 04-02-2023 11:24-0400 Body temperature 98.6 [degF] Dr. Tonio Fajardo Work Phone: [facility] 04-02-2023 11:24-0400 Diastolic blood pressure 55 mm[Hg] Dr. Tonio Fajardo Work Phone: [facility] 04-02-2023 11:24-0400 Heart rate 101 /min Dr. Tonio Fajardo Work Phone: [facility] 04-02-2023 11:24-0400 Respiratory rate 20 /min Dr. Tonio Fajardo Work Phone: [facility] 04-02-2023 11:24-0400 Systolic blood pressure 114 mm[Hg] Dr. Tonio Fajardo Work Phone: [facility] 03-19-2023 10:28-0400 Body temperature 98.2 [degF] Dr. Tonio Fajardo Work Phone: [facility] 03-19-2023 10:28-0400 Diastolic blood pressure 59 mm[Hg] Dr. Tonio Fajardo Work Phone: [facility] 03-19-2023 10:28-0400 Heart rate 106 /min Dr. Tonio Fajardo Work Phone: [facility] 03-19-2023 10:28-0400 Respiratory rate 20 /min Dr. Tonio Fajardo Work Phone: [facility] 03-19-2023 10:28-0400 Systolic blood pressure 120 mm[Hg] Dr. Tonio Fajardo Work Phone: [facility] 02-05-2023 13:10-0400 Body temperature 97.6 [degF] Dr. Tonio Fajardo Work Phone: [facility] 02-05-2023 13:10-0400 Diastolic blood pressure 76 mm[Hg] Dr. Tonio Fajardo Work Phone: [facility] 02-05-2023 13:10-0400 Heart rate 109 /min Dr. Tonio Fajardo Work Phone: [facility] 02-05-2023 13:10-0400 Respiratory rate 18 /min Dr. Tonio Fajardo Work Phone: [facility] 02-05-2023 13:10-0400 Systolic blood pressure 160 mm[Hg] Dr. Tonio Fajardo Work Phone: [facility] 01-08-2023 13:37-0400 Body temperature 96.7 [degF] Dr. Tonio Fajardo Work Phone: [facility] 01-08-2023 13:37-0400 Diastolic blood pressure 46 mm[Hg] Dr. Tonio Fajardo Work Phone: [facility] 01-08-2023 13:37-0400 Heart rate 111 /min Dr. Tonio Fajardo Work Phone: [facility] 01-08-2023 13:37-0400 Systolic blood pressure 121 mm[Hg] Dr. Tonio Fajardo Work Phone: [facility] 12-31-2022 00:58-0400 Body temperature 98.7 [degF] Dr. Tonio Fajardo Work Phone: [facility] 12-31-2022 00:58-0400 Diastolic blood pressure 59 mm[Hg] Dr. Tonio Fajardo Work Phone: [facility] 12-31-2022 00:58-0400 Heart rate 111 /min Dr. Tonio Fajardo Work Phone: [facility] 12-31-2022 00:58-0400 Respiratory rate 26 /min Dr. Tonio Fajardo Work Phone: [facility] 12-31-2022 00:58-0400 SaO2% (BldA) [Mass fraction] 93 % Dr. Tonio Fajardo Work Phone: [facility] 12-31-2022 00:58-0400 Systolic blood pressure 131 mm[Hg] Dr. Tonio Fajardo Work Phone: [facility] 12-30-2022 22:36-0400 Body height 167.[address] Tonio Fajardo Work Phone: [facility] 12-30-2022 22:36-0400 Body mass index (BMI) [Ratio] 30.5 kg/m2 Dr. Tonio Fajardo Work Phone: [facility] 12-30-2022 22:36-0400 Body weight 85.[address] Tonio Fajardo Work Phone: [facility] 12-25-2022 14:53-0400 Body temperature 97.7 [degF] Dr. Tonio Fajardo Work Phone: [facility] 12-25-2022 14:53-0400 Diastolic blood pressure 51 mm[Hg] Dr. Tonio Fajardo Work Phone: [facility] 12-25-2022 14:53-0400 Heart rate 110 /min Dr. Tonio Fajardo Work Phone: [facility] 12-25-2022 14:53-0400 Respiratory rate 18 /min Dr. Tonio Fajardo Work Phone: [facility] 12-25-2022 14:53-0400 Systolic blood pressure 101 mm[Hg] Dr. Tonio Fajardo Work Phone: [facility] 12-12-2022 10:49-0400 Body height 167.[address] Tonio Fajardo Work Phone: [facility] 12-12-2022 10:49-0400 Body mass index (BMI) [Ratio] 29.7 kg/m2 Dr. Tonio Fajardo Work Phone: [facility] 12-12-2022 10:49-0400 Body temperature 97.4 [degF] Dr. Tonio Fajardo Work Phone: [facility] 12-12-2022 10:49-0400 Body weight 83.[address] Tonio Fajardo Work Phone: [facility] 12-12-2022 10:49-0400 Diastolic blood pressure 71 mm[Hg] Dr. Tonio Fajardo Work Phone: [facility] 12-12-2022 10:49-0400 Heart rate 114 /min Dr. Tonio Fajardo Work Phone: [facility] 12-12-2022 10:49-0400 Respiratory rate 18 /min Dr. Tonio Fajardo Work Phone: [facility] 12-12-2022 10:49-0400 SaO2% (BldA) [Mass fraction] 96 % Dr. Tonio Fajardo Work Phone: [facility] 12-12-2022 10:49-0400 Systolic blood pressure 135 mm[Hg] Dr. Tonio Fajardo Work Phone: [facility] 12-11-2022 13:12-0400 Body temperature 96.2 [degF] Dr. Tonio Fajardo Work Phone: [facility] 12-11-2022 13:12-0400 Diastolic blood pressure 87 mm[Hg] Dr. Tonio Fajardo Work Phone: [facility] 12-11-2022 13:12-0400 Heart rate 107 /min Dr. Tonio Fajardo Work Phone: [facility] 12-11-2022 13:12-0400 Respiratory rate 20 /min Dr. Tonio Fajardo Work Phone: [facility] 12-11-2022 13:12-0400 Systolic blood pressure 110 mm[Hg] Dr. Tonio Fajardo Work Phone: [facility] 11-16-2022 13:13-0400 Diastolic blood pressure 49 mm[Hg] Dr. Tonio Fajardo Work Phone: [facility] 11-16-2022 13:13-0400 Heart rate 82 /min Dr. Tonio Fajardo Work Phone: [facility] 11-16-2022 13:13-0400 Respiratory rate 16 /min Dr. Tonio Fajardo Work Phone: [facility] 11-16-2022 13:13-0400 Systolic blood pressure 125 mm[Hg] Dr. Tonio Fajardo Work Phone: [facility] 11-08-2022 09:52-0400 Body temperature 97.3 [degF] Dr. Tonio Fajardo Work Phone: [facility] 10-16-2022 14:07-0500 Body height 167.[address] Tonio Fajardo Work Phone: [facility] 10-16-2022 14:05-0500 Body mass index (BMI) [Ratio] 29.8 kg/m2 Dr. Tonio Fajardo Work Phone: [facility] 10-16-2022 14:05-0500 Body temperature 97.6 [degF] Dr. Tonio Fajardo Work Phone: [facility] 10-16-2022 14:05-0500 Body weight 83.[address] Tonio Fajardo Work Phone: [facility] 10-16-2022 14:05-0500 Diastolic blood pressure 89 mm[Hg] Dr. Tonio Fajardo Work Phone: [facility] 10-16-2022 14:05-0500 Heart rate 78 /min Dr. Tonio Fajardo Work Phone: [facility] 10-16-2022 14:05-0500 Respiratory rate 18 /min Dr. Tonio Fajardo Work Phone: [facility] 10-16-2022 14:05-0500 SaO2% (BldA) [Mass fraction] 94 % Dr. Tonio Fajardo Work Phone: [facility] 10-16-2022 14:05-0500 Systolic blood pressure 145 mm[Hg] Dr. Tonio Fajardo Work Phone: [facility] 10-16-2022 13:24-0500 Body mass index (BMI) [Ratio] 29.8 kg/m2 Dr. Tonio Fajardo Work Phone: [facility] 10-16-2022 13:24-0500 Body temperature 98.6 [degF] Dr. Tonio Fajardo Work Phone: [facility] 10-16-2022 13:24-0500 Body weight 83.[address] Tonio Fajardo Work Phone: [facility] 10-16-2022 13:24-0500 Diastolic blood pressure 74 mm[Hg] Dr. Tonio Fajardo Work Phone: [facility] 10-16-2022 13:24-0500 Heart rate 75 /min Dr. Tonio Fajardo Work Phone: [facility] 10-16-2022 13:24-0500 Respiratory rate 18 /min Dr. Tonio Fajardo Work Phone: [facility] 10-16-2022 13:24-0500 SaO2% (BldA) [Mass fraction] 94 % Dr. Tonio Fajardo Work Phone: [facility] 10-16-2022 13:24-0500 Systolic blood pressure 146 mm[Hg] Dr. Tonio Fajardo Work Phone: [facility] 10-09-2022 12:59-0500 Body temperature 97.5 [degF] Dr. Tonio Fajardo Work Phone: [facility] 10-09-2022 12:59-0500 Diastolic blood pressure 63 mm[Hg] Dr. Tonio Fajardo Work Phone: [facility] 10-09-2022 12:59-0500 Heart rate 89 /min Dr. Tonio Fajardo Work Phone: [facility] 10-09-2022 12:59-0500 Respiratory rate 22 /min Dr. Tonio Fajardo Work Phone: [facility] 10-09-2022 12:59-0500 Systolic blood pressure 148 mm[Hg] Dr. Tonio Fajardo Work Phone: [facility] 09-18-2022 09:49-0500 Body temperature 97.3 [degF] Dr. Tonio Fajardo Work Phone: [facility] 09-18-2022 09:49-0500 Diastolic blood pressure 44 mm[Hg] Dr. Tonio Fajardo Work Phone: [facility] 09-18-2022 09:49-0500 Heart rate 66 /min Dr. Tonio Fajardo Work Phone: [facility] 09-18-2022 09:49-0500 Respiratory rate 18 /min Dr. Tonio Fajardo Work Phone: [facility] 09-18-2022 09:49-0500 Systolic blood pressure 138 mm[Hg] Dr. Tonio Fajardo Work Phone: [facility] 08-15-2022 13:56-0500 Body temperature 97.1 [degF] Dr. Tonio Fajardo Work Phone: [facility] 08-15-2022 13:56-0500 Diastolic blood pressure 43 mm[Hg] Dr. Tonio Fajardo Work Phone: [facility] 08-15-2022 13:56-0500 Heart rate 73 /min Dr. Tonio Fajardo Work Phone: [facility] 08-15-2022 13:56-0500 Respiratory rate 16 /min Dr. Tonio Fajardo Work Phone: [facility] 08-15-2022 13:56-0500 Systolic blood pressure 139 mm[Hg] Dr. Tonio Fajardo Work Phone: [facility] 08-08-2022 14:00-0500 Body height 167.[address] Tonio Fajardo Work Phone: [facility] 08-08-2022 13:57-0500 Body mass index (BMI) [Ratio] 29.5 kg/m2 Dr. Tonio Fajardo Work Phone: [facility] 08-08-2022 13:57-0500 Body temperature 97.5 [degF] Dr. Tonio Fajardo Work Phone: [facility] 08-08-2022 13:57-0500 Body weight 83.[address] Tonio Fajardo Work Phone: [facility] 08-08-2022 13:57-0500 Diastolic blood pressure 54 mm[Hg] Dr. Tonio Fajardo Work Phone: [facility] 08-08-2022 13:57-0500 Heart rate 67 /min Dr. Tonio Fajardo Work Phone: [facility] 08-08-2022 13:57-0500 Respiratory rate 16 /min Dr. Tonio Fajardo Work Phone: [facility] 08-08-2022 13:57-0500 SaO2% (BldA) [Mass fraction] 94 % Dr. Tonio Fajardo Work Phone: [facility] 08-08-2022 13:57-0500 Systolic blood pressure 109 mm[Hg] Dr. Tonio Fajardo Work Phone: [facility] 07-19-2022 14:30-0500 Body height 167.[address] Tonio Fajardo Work Phone: [facility] Work Phone: 07-19-2022 14:30-0500 Body mass index (BMI) [Ratio] 29 kg/m2 Dr. Tonio Fajardo Work Phone: [facility] 07-19-2022 14:30-0500 Body weight 81.[address] Tonio Fajardo Work Phone: [facility] 07-19-2022 14:30-0500 Diastolic blood pressure 62 mm[Hg] Dr. Tonio Fajardo Work Phone: [facility] 07-19-2022 14:30-0500 Heart rate 66 /min Dr. Tonio Fajardo Work Phone: [facility] 07-19-2022 14:30-0500 Respiratory rate 24 /min Dr. Tonio Fajardo Work Phone: [facility] 07-19-2022 14:30-0500 SaO2% (BldA) [Mass fraction] 97 % Dr. Tonio Fajardo Work Phone: [facility] 07-19-2022 14:30-0500 Systolic blood pressure 117 mm[Hg] Dr. Tonio Fajardo Work Phone: [facility] 07-18-2022 13:29-0500 Body temperature 97.1 [degF] Dr. Tonio Fajardo Work Phone: [facility] 07-18-2022 13:29-0500 Diastolic blood pressure 57 mm[Hg] Dr. Tonio Fajardo Work Phone: [facility] 07-18-2022 13:29-0500 Heart rate 83 /min Dr. Tonio Fajardo Work Phone: [facility] 07-18-2022 13:29-0500 Respiratory rate 16 /min Dr. Tonio Fajardo Work Phone: [facility] 07-18-2022 13:29-0500 Systolic blood pressure 117 mm[Hg] Dr. Tonio Fajardo Work Phone: [facility] 07-17-2022 11:23-0500 Body temperature 98.3 [degF] Dr. Tonio Fajardo Work Phone: [facility] 07-17-2022 11:23-0500 Diastolic blood pressure 58 mm[Hg] Dr. Tonio Fajardo Work Phone: [facility] 07-17-2022 11:23-0500 Heart rate 63 /min Dr. Tonio Fajardo Work Phone: [facility] 07-17-2022 11:23-0500 Respiratory rate 16 /min Dr. Tonio Fajardo Work Phone: [facility] 07-17-2022 11:23-0500 SaO2% (BldA) [Mass fraction] 97 % Dr. Tonio Fajardo Work Phone: [facility] 07-17-2022 11:23-0500 Systolic blood pressure 107 mm[Hg] Dr. Tonio Fajardo Work Phone: [facility] 07-05-2022 14:00-0500 Body mass index (BMI) [Ratio] 29 kg/m2 Dr. Tonio Fajardo Work Phone: [facility] 07-05-2022 14:00-0500 Body temperature 96.9 [degF] Dr. Tonio Fajardo Work Phone: [facility] 07-05-2022 14:00-0500 Body weight 81.[address] Tonio Fajardo Work Phone: [facility] 07-05-2022 14:00-0500 Diastolic blood pressure 63 mm[Hg] Dr. Tonio Fajardo Work Phone: [facility] 07-05-2022 14:00-0500 Heart rate 66 /min Dr. Tonio Fajardo Work Phone: [facility] 07-05-2022 14:00-0500 Respiratory rate 16 /min Dr. Tonio Fajardo Work Phone: [facility] 07-05-2022 14:00-0500 SaO2% (BldA) [Mass fraction] 97 % Dr. Tonio Fajardo Work Phone: [facility] 07-05-2022 14:00-0500 Systolic blood pressure 156 mm[Hg] Dr. Tonio aFjardo Work Phone: [facility] 06-28-2022 14:11-0500 Body mass index (BMI) [Ratio] 29.6 kg/m2 Dr. Tonio Fajardo Work Phone: [facility] 06-28-2022 14:11-0500 Body temperature 97.1 [degF] Dr. Tonio Fajardo Work Phone: [facility] 06-28-2022 14:11-0500 Body weight 83.[address] Tonio Fajardo Work Phone: [facility] 06-28-2022 14:11-0500 Diastolic blood pressure 58 mm[Hg] Dr. Tonio Fajardo Work Phone: [facility] 06-28-2022 14:11-0500 Heart rate 77 /min Dr. Tonio Fajardo Work Phone: [facility] 06-28-2022 14:11-0500 Respiratory rate 16 /min Dr. Tonio Fajadro Work Phone: [facility] 06-28-2022 14:11-0500 SaO2% (BldA) [Mass fraction] 89 % Dr. Tonio Fajardo Work Phone: [facility] 06-28-2022 14:11-0500 Systolic blood pressure 124 mm[Hg] Dr. Tonio Fajardo Work Phone: [facility] 06-21-2022 13:57-0400 Body mass index (BMI) [Ratio] 29.8 kg/m2 Dr. Tonio Fajardo Work Phone: [facility] 06-21-2022 13:57-0400 Body temperature 97 [degF] Dr. Tonio Fajardo Work Phone: [facility] 06-21-2022 13:57-0400 Body weight 83.[address] Tonio Fajardo Work Phone: [facility] 06-21-2022 13:57-0400 Diastolic blood pressure 88 mm[Hg] Dr. Tonio Fajardo Work Phone: [facility] 06-21-2022 13:57-0400 Heart rate 70 /min Dr. Tonio Fajardo Work Phone: [facility] 06-21-2022 13:57-0400 Respiratory rate 18 /min Dr. Tonio Fajardo Work Phone: [facility] 06-21-2022 13:57-0400 SaO2% (BldA) [Mass fraction] 94 % Dr. Tonio Fajardo Work Phone: [facility] 06-21-2022 13:57-0400 Systolic blood pressure 139 mm[Hg] Dr. Tonio Fajardo Work Phone: [facility] 06-14-2022 13:55-0400 Body height 167.[address] Tonio Fajardo Work Phone: [facility] Work Phone: 06-14-2022 13:53-0400 Body mass index (BMI) [Ratio] 29.5 kg/m2 Dr. Tonio Fajardo Work Phone: [facility] 06-14-2022 13:53-0400 Body temperature 97 [degF] Dr. Tonio Fajardo Work Phone: [facility] 06-14-2022 13:53-0400 Body weight 83.[address] Tonio Fajardo Work Phone: [facility] 06-14-2022 13:53-0400 Diastolic blood pressure 61 mm[Hg] Dr. Tonio Fajardo Work Phone: [facility] 06-14-2022 13:53-0400 Heart rate 66 /min Dr. Tonio Fajardo Work Phone: [facility] 06-14-2022 13:53-0400 Respiratory rate 16 /min Dr. Tonio Fajardo Work Phone: [facility] 06-14-2022 13:53-0400 SaO2% (BldA) [Mass fraction] 94 % Dr. Tonio Fajardo Work Phone: [facility] 06-14-2022 13:53-0400 Systolic blood pressure 137 mm[Hg] Dr. Tonio Fajardo Work Phone: [facility] 06-12-2022 10:32-0400 Body temperature 97.3 [degF] Dr. Tonio Fajardo Work Phone: [facility] 06-12-2022 10:32-0400 Diastolic blood pressure 63 mm[Hg] Dr. Tonio Fajardo Work Phone: [facility] 06-12-2022 10:32-0400 Heart rate 59 /min Dr. Tonio Fajardo Work Phone: [facility] 06-12-2022 10:32-0400 Respiratory rate 18 /min Dr. Tonio Fajardo Work Phone: [facility] 06-12-2022 10:32-0400 Systolic blood pressure 149 mm[Hg] Dr. Tonio Fajardo Work Phone: [facility] 05-30-2022 14:08-0400 Body height 167.[address] Tonio Fajardo Work Phone: [facility] Work Phone: 05-30-2022 14:05-0400 Body mass index (BMI) [Ratio] 29.7 kg/m2 Dr. Tonio Fajardo Work Phone: [facility] 05-30-2022 14:05-0400 Body temperature 97 [degF] Dr. Tonio Fajardo Work Phone: [facility] 05-30-2022 14:05-0400 Body weight 83.[address] Tonio Fajardo Work Phone: [facility] 05-30-2022 14:05-0400 Diastolic blood pressure 64 mm[Hg] Dr. Tonio Fajardo Work Phone: [facility] 05-30-2022 14:05-0400 Heart rate 65 /min Dr. Tonio Fajardo Work Phone: [facility] 05-30-2022 14:05-0400 Respiratory rate 18 /min Dr. Tonio Fajardo Work Phone: [facility] 05-30-2022 14:05-0400 SaO2% (BldA) [Mass fraction] 95 % Dr. Tonio Fajardo Work Phone: [facility] 05-30-2022 14:05-0400 Systolic blood pressure 145 mm[Hg] Dr. Tonio Fajardo Work Phone: [facility] 05-29-2022 14:48-0400 Body temperature 97.6 [degF] Dr. Tonio Fajardo Work Phone: [facility] Work Phone: 05-29-2022 14:48-0400 Diastolic blood pressure 51 mm[Hg] Dr. Tonio Fajardo Work Phone: [facility] Work Phone: 05-29-2022 14:48-0400 Heart rate 75 /min Dr. Tonio Fajardo Work Phone: [facility] Work Phone: 05-29-2022 14:48-0400 Systolic blood pressure 158 mm[Hg] Dr. Tonio Fajardo Work Phone: [facility] Work Phone: 05-24-2022 14:31-0400 Body height 167.[address] Tonio Fajardo Work Phone: [facility] Work Phone: 05-24-2022 14:22-0400 Body mass index (BMI) [Ratio] 29.7 kg/m2 Dr. Tonio Fajardo Work Phone: [facility] 05-24-2022 14:22-0400 Body temperature 98.2 [degF] Dr. Tonio Fajardo Work Phone: [facility] 05-24-2022 14:22-0400 Body weight 83.[address] Tonio Fajardo Work Phone: [facility] 05-24-2022 14:22-0400 Diastolic blood pressure 74 mm[Hg] Dr. Tonio Fajardo Work Phone: [facility] 05-24-2022 14:22-0400 Heart rate 74 /min Dr. Tonio Fajardo Work Phone: [facility] 05-24-2022 14:22-0400 Respiratory rate 15 /min Dr. Tonio Fajardo Work Phone: [facility] 05-24-2022 14:22-0400 SaO2% (BldA) [Mass fraction] 96 % Dr. Tonio Fajardo Work Phone: [facility] 05-24-2022 14:22-0400 Systolic blood pressure 135 mm[Hg] Dr. Tonio Fajardo Work Phone: [facility] 05-24-2022 13:26-0400 Body temperature 96.7 [degF] Dr. Tonio Fajardo Work Phone: [facility] Work Phone: 05-24-2022 13:26-0400 Diastolic blood pressure 57 mm[Hg] Dr. Tonio Fajardo Work Phone: [facility] Work Phone: 05-24-2022 13:26-0400 Heart rate 81 /min Dr. Tonio Fajardo Work Phone: [facility] Work Phone: 05-24-2022 13:26-0400 Respiratory rate 18 /min Dr. Tonio Fajardo Work Phone: [facility] Work Phone: 05-24-2022 13:26-0400 Systolic blood pressure 141 mm[Hg] Dr. Tonio Fajardo Work Phone: [facility] Work Phone: 05-17-2022 15:07-0400 Body temperature 97.5 [degF] Dr. Tonio Fajardo Work Phone: [facility] Work Phone: 05-17-2022 15:07-0400 Diastolic blood pressure 63 mm[Hg] Dr. Tonio Fajardo Work Phone: [facility] Work Phone: 05-17-2022 15:07-0400 Heart rate 71 /min Dr. Tonio Fajardo Work Phone: [facility] Work Phone: 05-17-2022 15:07-0400 Respiratory rate 20 /min Dr. Tonio Fajardo Work Phone: [facility] Work Phone: 05-17-2022 15:07-0400 Systolic blood pressure 142 mm[Hg] Dr. Tonio Fajardo Work Phone: [facility] Work Phone: 05-11-2022 16:01-0400 Body height 167.[address] Tonio Fajardo Work Phone: [facility] Work Phone: 05-11-2022 15:54-0400 Body mass index (BMI) [Ratio] 29.4 kg/m2 Dr. Tonio Fajardo Work Phone: [facility] Work Phone: 05-11-2022 15:54-0400 Body temperature 98.4 [degF] Dr. Tonio Fajardo Work Phone: [facility] Work Phone: 05-11-2022 15:54-0400 Body weight 82.[address] Tonio Fajardo Work Phone: [facility] Work Phone: 05-11-2022 15:54-0400 Diastolic blood pressure 67 mm[Hg] Dr. Tonio Fajardo Work Phone: [facility] Work Phone: 05-11-2022 15:54-0400 Heart rate 63 /min Dr. Tonio Fajardo Work Phone: [facility] Work Phone: 05-11-2022 15:54-0400 Respiratory rate 16 /min Dr. Tonio Fajardo Work Phone: [facility] Work Phone: 05-11-2022 15:54-0400 SaO2% (BldA) [Mass fraction] 96 % Dr. Tonio Fajardo Work Phone: [facility] Work Phone: 05-11-2022 15:54-0400 Systolic blood pressure 100 mm[Hg] Dr. Tonio Fajardo Work Phone: [facility] Work Phone: 05-11-2022 08:32-0400 Body mass index (BMI) [Ratio] 29.4 kg/m2 Dr. Tonio Fajardo Work Phone: [facility] Work Phone: 05-11-2022 08:32-0400 Body temperature 97.2 [degF] Dr. Tonio Fajardo Work Phone: [facility] Work Phone: 05-11-2022 08:32-0400 Body weight 82.[address] Tonio Fajardo Work Phone: [facility] Work Phone: 05-11-2022 08:32-0400 Diastolic blood pressure 62 mm[Hg] Dr. Tonio Fjaardo Work Phone: [facility] Work Phone: 05-11-2022 08:32-0400 Heart rate 73 /min Dr. Tonio Fajardo Work Phone: [facility] Work Phone: 05-11-2022 08:32-0400 Respiratory rate 20 /min Dr. Tonio Fajardo Work Phone: [facility] Work Phone: 05-11-2022 08:32-0400 SaO2% (BldA) [Mass fraction] 96 % Dr. Tonio Fajardo Work Phone: [facility] Work Phone: 05-11-2022 08:32-0400 Systolic blood pressure 145 mm[Hg] Dr. Tonio Fajardo Work Phone: [facility] Work Phone: 04-28-2022 11:40-0400 Body temperature 97.4 [degF] Dr. Tonio Fajardo Work Phone: [facility] Work Phone: 04-28-2022 11:40-0400 Diastolic blood pressure 46 mm[Hg] Dr. Tonio Fajardo Work Phone: [facility] Work Phone: 04-28-2022 11:40-0400 Heart rate 66 /min Dr. Tonio Fajardo Work Phone: [facility] Work Phone: 04-28-2022 11:40-0400 Respiratory rate 20 /min Dr. Tonio Fajardo Work Phone: [facility] Work Phone: 04-28-2022 11:40-0400 SaO2% (BldA) [Mass fraction] 96 % Dr. Tonio Fajardo Work Phone: [facility] Work Phone: 04-28-2022 11:40-0400 Systolic blood pressure 138 mm[Hg] Dr. Tonio Fajardo Work Phone: [facility] Work Phone: 04-28-2022 09:44-0400 Inhaled oxygen flow rate 2 L/min Dr. Tonio Fajardo Work Phone: [facility] Work Phone: 04-28-2022 08:15-0400 Body height 167.[address] Tonio Fajardo Work Phone: [facility] Work Phone: 04-28-2022 08:15-0400 Body mass index (BMI) [Ratio] 28 kg/m2 Dr. Tonio Fajardo Work Phone: [facility] Work Phone: 04-28-2022 08:15-0400 Body weight 78.[address] Tonio Fajardo Work Phone: [facility] Work Phone: 04-26-2022 13:47-0400 Body temperature 97 [degF] Dr. Tonio Fajardo Work Phone: [facility] Work Phone: 04-26-2022 13:47-0400 Diastolic blood pressure 33 mm[Hg] Dr. Tonio Fajardo Work Phone: [facility] Work Phone: 04-26-2022 13:47-0400 Heart rate 80 /min Dr. Tonio Fajardo Work Phone: [facility] Work Phone: 04-26-2022 13:47-0400 Respiratory rate 18 /min Dr. Tonio Fajardo Work Phone: [facility] Work Phone: 04-26-2022 13:47-0400 Systolic blood pressure 118 mm[Hg] Dr. Tonio Fajardo Work Phone: [facility] Work Phone: 04-14-2022 11:11-0400 Body height 167.[address] Tonio Fajardo Work Phone: [facility] Work Phone: 04-14-2022 11:11-0400 Body mass index (BMI) [Ratio] 30.7 kg/m2 Dr. Tonio Fajardo Work Phone: [facility] Work Phone: 04-14-2022 11:11-0400 Body temperature 95.8 [degF] Dr. Tonio Fajardo Work Phone: [facility] Work Phone: 04-14-2022 11:11-0400 Body weight 86.[address] Tonio Fajardo Work Phone: [facility] Work Phone: 04-14-2022 11:11-0400 Diastolic blood pressure 68 mm[Hg] Dr. Tonio Fajardo Work Phone: [facility] Work Phone: 04-14-2022 11:11-0400 Heart rate 34 /min Dr. Tonio Fajardo Work Phone: [facility] Work Phone: 04-14-2022 11:11-0400 Respiratory rate 16 /min Dr. Tonio Fajardo Work Phone: [facility] Work Phone: 04-14-2022 11:11-0400 SaO2% (BldA) [Mass fraction] 91 % Dr. Tonio Fajardo Work Phone: [facility] Work Phone: 04-14-2022 11:11-0400 Systolic blood pressure 163 mm[Hg] Dr. Tonio Fajardo Work Phone: [facility] Work Phone: 04-14-2022 10:36-0400 Body temperature 96.7 [degF] Dr. Tonio Fajardo Work Phone: [facility] Work Phone: 04-14-2022 10:36-0400 Diastolic blood pressure 71 mm[Hg] Dr. Tonio Fajardo Work Phone: [facility] Work Phone: 04-14-2022 10:36-0400 Heart rate 64 /min Dr. Tonio Fajardo Work Phone: [facility] Work Phone: 04-14-2022 10:36-0400 Respiratory rate 23 /min Dr. Tonio Fajardo Work Phone: [facility] Work Phone: 04-14-2022 10:36-0400 SaO2% (BldA) [Mass fraction] 94 % Dr. Tonio Fajardo Work Phone: [facility] Work Phone: 04-14-2022 10:36-0400 Systolic blood pressure 153 mm[Hg] Dr. Tonio Fajardo Work Phone: [facility] Work Phone: 04-14-2022 08:24-0400 Body mass index (BMI) [Ratio] 30.2 kg/m2 Dr. Tonio Fajardo Work Phone: [facility] Work Phone: 04-14-2022 08:24-0400 Body weight 85.[address] Tonio Fajardo Work Phone: [facility] Work Phone: 04-12-2022 13:50-0400 Body temperature 97.8 [degF] Dr. Tonio Fajardo Work Phone: [facility] Work Phone: 04-12-2022 13:50-0400 Diastolic blood pressure 74 mm[Hg] Dr. Tonio Fajardo Work Phone: [facility] Work Phone: 04-12-2022 13:50-0400 Heart rate 69 /min Dr. Tonio Fajardo Work Phone: [facility] Work Phone: 04-12-2022 13:50-0400 Respiratory rate 18 /min Dr. Tonio Fajardo Work Phone: [facility] Work Phone: 04-12-2022 13:50-0400 Systolic blood pressure 107 mm[Hg] Dr. Tonio Fajardo Work Phone: [facility] Work Phone: 04-05-2022 13:34-0400 Body temperature 101.61 [degF] Steven [employer] Work Phone: [facility] 04-05-2022 13:34-0400 Body weight 87.09 kg Steven P[employer]ler[employer] Work Phone: [facility] 04-05-2022 13:34-0400 Diastolic blood pressure 76 mm[Hg] Steven P[employer] Work Phone: [facility] 04-05-2022 13:34-0400 Heart rate 76 /min Steven P[employer] Work Phone: [facility] 04-05-2022 13:34-0400 Respiratory rate 16 /min Steven [employer] Work Phone: [facility] 04-05-2022 13:34-0400 SaO2% (BldA) [Mass fraction] 94 % Steven P[employer]ler[employer] Work Phone: [facility] 04-05-2022 13:34-0400 Systolic blood pressure 122 mm[Hg] Steven [employer] Work Phone: [facility] 03-01-2022 13:16-0400 Body temperature 97.6 [degF] Dr. Tonio Fajardo Work Phone: [facility] Work Phone: 03-01-2022 13:16-0400 Diastolic blood pressure 73 mm[Hg] Dr. Tonio Fajardo Work Phone: [facility] Work Phone: 03-01-2022 13:16-0400 Heart rate 70 /min Dr. Tonio Fajardo Work Phone: [facility] Work Phone: 03-01-2022 13:16-0400 Respiratory rate 18 /min Dr. Tonio Fajardo Work Phone: [facility] Work Phone: 03-01-2022 13:16-0400 Systolic blood pressure 141 mm[Hg] Dr. Tonio Fajardo Work Phone: [facility] Work Phone: 02-08-2022 13:06-0400 Body temperature 98.1 [degF] Dr. Tonio Fajardo Work Phone: [facility] Work Phone: 02-08-2022 13:06-0400 Diastolic blood pressure 63 mm[Hg] Dr. Tonio Fajardo Work Phone: [facility] Work Phone: 02-08-2022 13:06-0400 Heart rate 83 /min Dr. Tonio Fajardo Work Phone: [facility] Work Phone: 02-08-2022 13:06-0400 Respiratory rate 20 /min Dr. Tonio Fajardo Work Phone: [facility] Work Phone: 02-08-2022 13:06-0400 Systolic blood pressure 131 mm[Hg] Dr. Tonio Fajardo Work Phone: [facility] Work Phone: 01-17-2022 10:56-0400 Body height 167.[address] Tonio Fajardo Work Phone: [facility] Work Phone: 01-17-2022 10:56-0400 Body mass index (BMI) [Ratio] 31.9 kg/m2 Dr. Tonio Fajardo Work Phone: [facility] Work Phone: 01-17-2022 10:56-0400 Body weight 89.[address] Tonio Fajardo Work Phone: [facility] Work Phone: 01-17-2022 10:56-0400 Diastolic blood pressure 44 mm[Hg] Dr. Tonio Fajardo Work Phone: [facility] Work Phone: 01-17-2022 10:56-0400 Heart rate 64 /min Dr. Tonio Fajardo Work Phone: [facility] Work Phone: 01-17-2022 10:56-0400 Respiratory rate 22 /min Dr. Tonio Fajardo Work Phone: [facility] Work Phone: 01-17-2022 10:56-0400 SaO2% (BldA) [Mass fraction] 95 % Dr. Tonio Fajardo Work Phone: [facility] Work Phone: 01-17-2022 10:56-0400 Systolic blood pressure 101 mm[Hg] Dr. Tonio Fajardo Work Phone: [facility] Work Phone: 01-17-2022 10:56-0400 Body height 167.[address] Tonio Fajardo Work Phone: [facility] Work Phone: 01-17-2022 10:56-0400 Body mass index (BMI) [Ratio] 31.9 kg/m2 Dr. Tonio Fajardo Work Phone: [facility] Work Phone: 01-17-2022 10:56-0400 Body weight 89.[address] Tonio Fajardo Work Phone: [facility] Work Phone: 01-17-2022 10:56-0400 Diastolic blood pressure 44 mm[Hg] Dr. Tonio Fajardo Work Phone: [facility] Work Phone: 01-17-2022 10:56-0400 Heart rate 64 /min Dr. Tonio Fajardo Work Phone: [facility] Work Phone: 01-17-2022 10:56-0400 Respiratory rate 22 /min Dr. Tonio Fajardo Work Phone: [facility] Work Phone: 01-17-2022 10:56-0400 SaO2% (BldA) [Mass fraction] 95 % Dr. Tonio Fajardo Work Phone: [facility] Work Phone: 01-17-2022 10:56-0400 Systolic blood pressure 101 mm[Hg] Dr. Tonio Fajardo Work Phone: [facility] Work Phone: 01-04-2022 12:59-0400 Body temperature 96.4 [degF] Dr. Tonio Fajardo Work Phone: [facility] Work Phone: 01-04-2022 12:59-0400 Diastolic blood pressure 64 mm[Hg] Dr. Tonio Fajardo Work Phone: [facility] Work Phone: 01-04-2022 12:59-0400 Heart rate 70 /min Dr. Tonio Faajrdo Work Phone: [facility] Work Phone: 01-04-2022 12:59-0400 Respiratory rate 16 /min Dr. Tonio Fajardo Work Phone: [facility] Work Phone: 01-04-2022 12:59-0400 Systolic blood pressure 135 mm[Hg] Dr. Tonio Fajardo Work Phone: [facility] Work Phone: 12-21-2021 13:10-0400 Body temperature 97 [degF] [place] Work Phone: 12-21-2021 13:10-0400 Diastolic blood pressure 62 mm[Hg] [facility] Work Phone: 12-21-2021 13:10-0400 Heart rate 88 /min [facility] Work Phone: 12-21-2021 13:10-0400 Systolic blood pressure 173 mm[Hg] [facility] Work Phone: 12-18-2021 00:38-0400 Respiratory rate 16 /min [place] Work Phone: 11-29-2021 13:03-0400 Body temperature 97.4 [degF] [place] Work Phone: 11-29-2021 13:03-0400 Diastolic blood pressure 43 mm[Hg] [facility] Work Phone: 11-29-2021 13:03-0400 Heart rate 69 /min [facility] Work Phone: 11-29-2021 13:03-0400 Respiratory rate 16 /min [place] Work Phone: 11-29-2021 13:03-0400 Systolic blood pressure 134 mm[Hg] [facility] Work Phone: 11-09-2021 13:07-0400 Body temperature 97 [degF] [place] Work Phone: 11-09-2021 13:07-0400 Diastolic blood pressure 41 mm[Hg] [facility] Work Phone: 11-09-2021 13:07-0400 Heart rate 73 /min [facility] Work Phone: 11-09-2021 13:07-0400 Respiratory rate 18 /min [place] Work Phone: 11-09-2021 13:07-0400 Systolic blood pressure 126 mm[Hg] [facility] Work Phone: Encounters Encounter Date Encounter Type Care Provider Facility Start: 04-19-2025 Dr. Tonio robertson DO Work Phone: -Emergency Department Work Phone: Start: 04-17-2025 End: 04-19-2025 Dr. Valdez Olivo MD -Transitional Care [facility] Start: 04-17-2025 End: 04-19-2025 [facility] Start: 04-16-2025 ambulatory [facility] Facility: [facility] Start: 04-13-2025 End: 04-17-2025 Evaluation and management of inpatient DR DAVID STERLING MD [facility] Start: 04-12-2025 End: 04-13-2025 Dr. Tonio Fajardo [...] Unit Start: 04-10-2025 End: 04-10-2025 Carol Sousa -[facility] Work Phone: Start: 04-10-2025 Dr. Nicola Roman MD -[facility] Work Phone: Start: 04-10-2025 End: 04-10-[address] Tonio Fajardo DO Work Phone: -[facility] Start: 04-10-2025 End: 04-10-2025 Dr. Issa Looney MD -[facility] Work Phone: Start: 04-09-2025 Dr. Santos Hsu MD -[facility] Start: 04-09-2025 Dr. Nicola Roman MD -[facility] Work Phone: Start: 04-08-2025 Dr. Issa Looney MD -[facility] Start: 04-08-2025 Dr. Nicola Roman MD -[facility] Work Phone: Start: 04-07-2025 Dr. Nicola Roman MD -[facility] Work Phone: Start: 04-06-2025 Dr. Deric Lantigua MD -[facility] Work Phone: Start: 04-05-2025 [...] Health Lab Start: 04-02-2025 End: 04-02-2025 Carmelina Nora Aida -Home Health Lab Start: 04-02-2025 End: 04-02-2025 ambulatory Carmelina E Aida Facility:[facility] Start: 03-27-2025 End: 03-27-[address] Tonio Fajardo DO Work Phone: -Pulmonary Services/Neurology Start: 03-27-2025 End: 03-27-2025 Patient encounter procedure Leslie Arriaga PA -Pulmonary Services/Neurology Work Phone: Start: 03-27-2025 End: 03-27-2025 Leslie Arriaga PA -Pulmonary Services/Neurology Work Phone: Start: 03-27-2025 End: 03-27-2025 ambulatory Leslie DAMIAN Facility:[facility] Start: 03-18-2025 End: 03-18-[address] Toino Fajardo DO Work Phone: -Laboratory [facility] Start: 03-18-2025 End: 03-18-[address] Tonio Fajardo -[facility] Start: 03-18-2025 End: 03-18-[address] [facility] Start: 03-17-2025 End: 03-17-2025 Patient encounter procedure Leslie Arriaga PA -[facility] Work Phone: Start: 03-17-2025 End: 03-17-2025 Leslie Arriaga PA -[facility] Work Phone: Start: 03-17-2025 End: 03-18-[address] Tonio Fajardo DO Work Phone: -[facility] Start: 03-15-2025 End: 03-15-2025 Dr[facility] Start: 03-15-2025 End: 03-15-2025 Emergency department patient visit Dr. Tonio Fajardo DO Work Phone: -Emergency Department Work Phone: Start: 03-09-2025 Non-patient / Non-visit Dr. Deric Lantigua MD -[facility] Work Phone: Start: 03-09-2025 Dr. Deric Lantigua MD -[facility] Work Phone: Start: 03-09-2025 Non-patient / Non-visit Dr. Willian Glaser MD -[facility] Start: 03-09-2025 Dr. Willian Glaser MD - [facility] Start: 03-08-2025 Non-patient / [facility] Start: 03-08-2025 Dr. Marjorie Green MD [facility] Start: 03-07-2025 Non-patient / Non-visit Dr. Deric Lantigua MD [facility] Work Phone: Start: 03-07[facility]: Start: 03-06-2025 Non-patient / Non-visit Dr. Deric Lantigua MD -[facility] Work Phone: Start: 03-06-2025 Dr. Deric Lantigua MD [facility] Inpatient [facility] Work Phone: Start: 03-06-2025 Non-patient / [facility] Start: 03-06-2025 Dr. Marjorie Green MD [facility] Start: 03-05-2025 ambulatory Marjorie Green Facility:[facility] Start: 03-05-2025 Non-patient / Non-visit Dr. Marjorie castellano MD [facility] Start: 03-05-2025 Dr. Marjorie Green MD [facility] Start: 03-05-2025 Non-patient / Non-visit Dr. Deric Lantigua MD [facility] Inpatient Phys[facility] Work Phone: Start: 03-05-2025 Dr. Deric Lantigua MD [facility] Work Phone: Start: 03-04-2025 ambulatory Nicola Prakash ty:[facility] Start: 03-04-2025 End: 03-09-2025 Evaluation and management of inpatient Dr. Nicola Lindsey DO -Progressive Care Unit Work Phone: Start: 03-04-2025 End: 03-09-2025 Dr. Deric Lantigua MD -[facility] Work Phone: Start: 11-06-[address] Russ Zamora MD -[facility] Start: 11-06-2024 End: 11-06-[address] Russ Zamora MD -[facility] Work Phone: Start: 11-06-2024 End: 11-06-2024 ambulatory Russ Zamora Facility:[facility] Start: 10-30-2024 End: 10-30-[address] Tonio Fajardo DO Work Phone: [facility] Work Phone: Start: 10-30-2024 End: 10-30-[address] [facility] Start: 10-30-2024 End: 10-30-2024 ambulatory Russ Zamora Facility:[facility] Start: 10-23-2024 End: 10-23-2024 Patient encounter procedure Lorie Mart NP-C -[facility] Work Phone: Start: 10-23-2024 End: 10-23-2024 ambulatory Tonio Fajardo Facility:[facility] Start: 10-20-2024 End: 10-20-[address] Tonio Fajardo DO Work Phone: [facility] Work Phone: Start: 10-20-2024 End: 10-20-[address] Tonio Fajardo DO -Laboratory, [facility] Start: 10-20-2024 End: 10-20-2024 ambulatory Tonio Fajardo Facility:[facility] Start: 10-17-2024 ambulatory Tonio Fajardo Facility: [facility] Start: 10-17-2024 Non-patient / Non-visit Dr. Tyrell zuniga DO -[facility] Start: 10-16-2024 End: 10-16-[address] Tonio Fajardo DO Work Phone: [facility] Work Phone: Start: 10-16-2024 End: 10-16-2024 Patient encounter procedure Lorie Mart NP-C -Pulmonary Services/Neurology Work Phone: Start: 10-16-2024 End: 10-16-2024 ambulatory Tonio Fajardo Facility:[facility] Start: 09-25-2024 End: 09-25-2024 Patient encounter procedure Leslie DAMIAN -[facility] Work Phone: Start: 09-25-2024 End: 09-25-2024 ambulatory Tonio Scotty Facility:[facility] Start: 09-25-2024 End: 09-25-2024 ambulatory Leslie DAMIAN Facility:[facility] Start: 07-03-2024 End: 07-03-[address] Joaquim Suárez DP -Laboratory, Specimen Work Phone: Start: 07-03-2024 End: 07-03-2024 ambulatory Joaquim Suárez Facility:[facility] Start: 06-17-2024 End: 06-17-2024 ambulatory Joaquim Suárez Facility:[facility] Start: 05-05-2024 End: 05-05-2024 ambulatory [facility] Facility:[facility] Start: 04-28-2024 End: 04-28-2024 ambulatory [facility] Facility:[facility] Start: 12-24-2023 End: 12-24-[address] Tonio Fajardo Work Phone: [facility] Work Phone: Start: 12-24-2023 End: 12-24-[address] Tonio Fajardo Work Phone: [facility]-Laboratory, Specimen Work Phone: Start: 11-12-2023 End: 11-12-[address] Tonio Fajardo Work Phone: [facility] Work Phone: Start: 11-06-[address] Tonio Fajardo Work Phone: [facility] Start: 10-31-2023 End: 10-31-[address] Tonio Fajardo Work Phone: [facility] Work Phone: Start: 10-18-2023 End: 10-18-[address] Tonio Fajardo Work Phone: [facility] Work Phone: Start: 10-12-2023 End: 10-12-[address] Tonio Fajardo Work Phone: [facility] Work Phone: Start: 10-12-2023 End: 10-12-[address] Tonio Fajardo Work Phone: [facility]-Cat [facility] Work Phone: Start: 08-29-2023 End: 08-29-[address] Tonio Fajardo Work Phone: [facility] Work Phone: Start: 08-22-2023 Non-patient / Non-visit Dr. Min Fajardo Work Phone: [facility] Start: 08-22-2023 End: 08-22-[address] [facility] Work [facility] Start: 07-26-2023 End: 07-26-[address] Tonio Fajardo Work Phone: [facility] Work Phone: Start: 07-26-2023 End: 07-26-[address] Tonio Fajardo Work Phone: [facility] Work Phone: Start: 07-25-2023 End: 07-25-[address] Tonio Fajardo Work Phone: [facility] Work Phone: Start: 06-22-2023 End: 06-22-[address] Tonio Fajardo Work Phone: [facility] Work Phone: Start: 06-22-2023 End: 06-22-[address] Tonio Fajardo Work Phone: [facility]-Laboratory, Specimen Work Phone: Start: 06-08-2023 End: 06-08-2023 Admission to same day surgery center Dr. Tonio Fajardo [facility] Start: 06-08-2023 End: 06-08-[address] Tonio Fajardo Work Phone: [facility] Work Phone: Start: 05-02-2023 End: 05-19-[address] Tonio [facility]ajardo [facility] Work Phone: Start: 04-20-2023 Non-patient / Non-visit Dr. Min Fajardo Work Phone: [facility] Start: 04-18-2023 End: 04-19-[address] Tonio Fajardo Work Phone: [facility] Work Phone: Start: 04-18-2023 End: 04-19-[address] Tonio Fajardo [facility] Work Phone: Start: 04-17-[address] Tonio Fajardo Work Phone: [facility] Start: 04-17-2023 End: 04-17-[address] Tonio Fajardo Work Phone: [facility] Work Phone: Start: 04-10-2023 End: 04-10-[address] Tonio Fajardo Work Phone: [facility] Work Phone: Start: 04-10-2023 End: 04-10-[address] Tonio Fajardo Work Phone: [facility] Work Phone: Start: 04-02-2023 Non-patient / Non-visit Dr. Min Fajardo Work Phone: [facility] Start: 04-02-[address] Tonio Fajardo [facility] Work Phone: Start: 03-19-2023 Non-patient / Non-visit Dr. Min Fajardo Work Phone: [facility] Start: 03-19-2023 End: 03-19-[address] Tonio Fajardo Work Phone: [facility] Work Phone: Start: 03-19-2023 End: 03-19-[address] Tonio Fajardo [facility] Work Phone: Start: 03-05-2023 Non-patient / Non-visit Dr. Min Fajardo Work Phone: [facility] Start: 02-23-2023 End: 02-23-[address] Tonio Fajardo Work Phone: [facility] Work Phone: Start: 02-19-2023 Non-patient / Non-visit Dr. Min Fajardo Work Phone: [facility] Start: 02-05-2023 Non-patient / Non-visit Dr. Min Fajardo Work Phone: [facility] Start: 02-05-2023 End: 02-16-[address] Tonio Fajardo Work Phone: [facility] Work Phone: Start: 02-05-2023 End: 02-16-[address] Tonio Fajardo Work Phone: [facility] Work Phone: Start: 01-22-2023 Non-patient / Non-visit Dr. Min Fajardo Work Phone: [facility] Start: 01-08-2023 Non-patient / Non-visit Dr. Min Fajardo Work Phone: [facility] Start: 01-08-2023 End: 01-17-[address] Tonio Fajardo Work Phone: [facility] Work Phone: Start: 01-08-2023 End: 01-17-[address] Tonio Fajardo Work Phone: [facility] Start: 12-30-2022 End: 12-31-2022 Emergency department patient visit Dr. Tonio Fajardo Work Phone: [facility]-Emergency Department Start: 12-25-2022 Non-patient / Non-visit Dr. Min Fajardo Work Phone: [facility] Start: 12-25-[address] Tonio Fajardo Work Phone: [facility] Start: 12-18-2022 Non-patient / Non-visit Dr. Min Fajardo Work Phone: [facility] Start: 12-12-2022 End: 12-12-[address] Tonio Fajardo Work Phone: [facility]-Pulmonary Medicine [facility] Start: 12-11-2022 Non-patient / Non-visit Dr. Min Fajardo Work Phone: [facility] Start: 12-11-2022 End: 12-17-[address] Tonio Fajardo Work Phone: [facility] Work Phone: Start: 12-11-2022 End: 12-17-[address] Tonio Fajardo [facility] Start: 12-06-2022 Non-patient / Non-visit Dr. Mni Fajardo Work Phone: [facility] Start: 11-27-2022 Non-patient / Non-visit Dr. Min Fajardo Work Phone: [facility] Start: 11-20-2022 Non-patient / Non-visit Dr. Min Fajardo Work Phone: [facility] Start: 11-08-2022 Non-patient / Non-visit Dr. Min Fajardo Work Phone: [facility] Start: 11-08-2022 End: 11-17-[address] Tonio Fajardo [facility] Start: 10-30-2022 Non-patient / Non-visit Dr. Min Fajardo Work Phone: [facility] Start: 10-23-2022 Non-patient / Non-visit Dr. Min Fajardo Work Phone: [facility] Start: 10-18-2022 Non-patient / Non-visit Dr. Min Fajardo Work Phone: [facility] Start: 10-16-[address] Tonio Fajardo Work Phone: [facility] Start: 10-16-2022 End: 10-16-[address] Tonio Fajardo Work Phone: [facility] Start: 10-09-2022 Non-patient / Non-visit Dr. Min Fajardo Work Phone: [facility] Start: 10-09-2022 End: 10-09-[address] Tonio Fajardo Work Phone: [facility] Start: 10-09-2022 End: 10-17-[address] Tonio Fajardo Work Phone: [facility] Work Phone: Start: 10-09-2022 End: 10-17-[address] [facility] Start: 10-09-[address] [facility]ardo [facility] Start: 10-02-2022 Non-patient / Non-visit Dr. Min Fajardo Work Phone: [facility] Start: 10-02-2022 End: 10-02-[address] Tonio Fajardo Work Phone: [facility] Start: 09-25-2022 Non-patient / Non-visit Dr. Min Fajardo Work Phone: [facility] Start: 09-18-2022 Non-patient / Non-visit Dr. Min Fajardo Work Phone: [facility] Start: 09-18-2022 End: 09-19-[address] Tonio Fajardo Work Phone: [facility] Work Phone: Start: 09-18-2022 End: 09-19-[address] Tonio Fajardo Work Phone: [facility] Start: 08-29-2022 Non-patient / Non-visit Dr. Min Fajardo Work Phone: [facility] Start: 08-15-2022 Non-patient / Non-visit Dr. Min Fajardo Work Phone: [facility] Start: 08-15-2022 End: 08-19-[address] Tonio Fajardo Work Phone: [facility] Work Phone: Start: 08-15-2022 End: 08-19-[address] Tonio Fajardo Work Phone: [facility] Start: 08-08-2022 End: 08-08-[address] Tonio Fajardo Work Phone: [facility] Start: 08-01-2022 Non-patient / Non-visit Dr. Min Fajardo Work Phone: [facility] Start: 07-28-2022 Telephone encounter Steven Parra APRN.CNP Work Phone: [facility] Comment on above: Patient Update Start: 07-19-2022 End: 07-19-[address] Tonio Fajrado Work Phone: [facility] Start: 07-18-2022 Non-patient / Non-visit Dr. Min Fajardo Work Phone: [facility] Start: 07-18-2022 End: 07-19-[address] Tonio Fajardo Work Phone: [facility] Work Phone: Start: 07-18-2022 End: 07-19-[address] [facility]ardo [facility] Start: 07-17-2022 End: 07-17-[address] Tonio Fajardo Work Phone: [facility] Start: 07-09-[address] [facility]ardo [facility] Start: 07-09-2022 Non-patient / Non-visit Dr. Min Fajardo Work Phone: [facility] Start: 07-05-2022 End: 07-05-[address] Tonio Fajardo Work Phone: [facility] Start: 06-28-2022 End: 06-28-[address] Tonio Fajardo Work Phone: [facility] Start: 06-26-2022 Non-patient / Non-visit Dr. Min Fajardo Work Phone: [facility] Start: 06-21-2022 End: 06-21-[address] Tonio Fajardo Work Phone: [facility] Start: 06-19-[address] Ton[facility] Fajardo [facility] Start: 06-14-2022 End: 06-14-[address] Tonio Fajardo Work Phone: [facility] Start: 06-12-2022 Non-patient / Non-visit Dr. Min Fajardo Work Phone: [facility] Start: 06-12-2022 End: 06-19-[address] Tonio Fajardo Work Phone: [facility] Work Phone: Start: 06-12-2022 End: 06-19-[address] [facility]ajardo [facility] Start: 06-06-2022 Non-patient / Non-visit Dr. Min Fajardo Work Phone: [facility] Start: 06-02-2022 Non-patient / Non-visit Dr. Min Fajardo Work Phone: [facility] Start: 06-02-2022 End: 06-02-[address] Tonio Fajardo Work Phone: [facility] Work Phone: Start: 06-02-2022 End: 06-02-[address] Tonio Fajardo Work Phone: [facility]urology Start: 06-01-2022 Non-patient / Non-visit Dr. Min Fajardo Work Phone: [facility] Start: 06-01-[address] Tonio Fajardo Work Phone: [facility] Start: 05-30-[address] Tonio Fajardo Work Phone: [facility] Start: 05-30-2022 End: 05-30-[address] Tonio Fajardo Work Phone: [facility] Start: 05-29-2022 Non-patient / Non-visit Dr. Min Fajardo Work Phone: [facility] Start: 05-29-[address] Ton[facility] Fajardo [facility] Start: 05-24-2022 End: 05-24-[address] Tonio Fajardo Work Phone: [facility] Start: 05-24-2022 Non-patient / Non-visit Dr. Min Fajardo Work Phone: [facility] Start: 05-24-[address] Tonio Fajardo Work Phone: [facility] Start: 05-22-2022 End: 05-22-[address] Tonio Fajardo Work Phone: [facility] Work Phone: Start: 05-22-2022 End: 05-22-[address] Tonio Fajardo Work Phone: [facility] Start: 05-17-2022 Non-patient / Non-visit Dr. Min Fajardo Work Phone: [facility] Start: 05-17-2022 End: 05-19-[address] Tonio Fajardo Work Phone: [facility] Work Phone: Start: 05-17-2022 End: 05-19-[address] Ton[facility] Fajardo [facility] Start: 05-17-[address] Tonio Fajardo Work Phone: [facility] Start: 05-11-2022 End: 05-11-[address] Tonio Fajardo Work Phone: [facility] Start: 05-11-2022 End: 05-11-[address] Tonio Fajardo Work Phone: [facility] Medicine [facility] Start: 04-28-2022 Non-patient / Non-visit Dr. Min Fajardo Work Phone: [facility] Start: 04-28-2022 End: 04-28-[address] Tonio Fajardo Work Phone: [facility] Work Phone: Start: 04-28-2022 End: 04-28-[address] Tonio Fajardo Work Phone: [facility] Start: 04-26-[address] Tonio Fajardo [facility] Start: 04-14-2022 End: 04-14-[address] Tonio Fajardo Work Phone: [facility] Work Phone: Start: 04-14-2022 End: 04-14-[address] Tonio Fajardo Work Phone: [facility] Start: 04-14-2022 End: 04-14-2022 Emergency department patient visit Dr. Tonio Fajardo Work Phone: [facility]Emergency Department Start: 04-12-2022 End: 04-12-[address] Tonio Fajardo Work Phone: [facility] Work Phone: Start: 04-12-2022 End: 04-12-[address] Tonio Fajarod Work Phone: [facility] Start: 04-12-2022 End: 04-19-[address] Tonio Fajardo Work Phone: [facility] Work Phone: Start: 04-12-2022 End: 04-19-[address] Tonio Fajardo Work Phone: [facility] Start: 04-12-[address] Tonio Fajardo Work Phone: [facility] Start: 04-06-2022 Telephone encounter Carlos Rivera MD Work Phone: [facility] Comment on above: Results (COVID+) Start: 04-05-2022 End: 04-05-2022 ambulatory TONIO FAJARDO Facility:[facility] Start: 04-05-2022 Telephone encounter Steven Parra APRN.CNP Work Phone: [facility] Comment on above: Results Start: 04-05-2022 End: 04-05-2022 Subsequent hospital visit by physician [facility] Work Phone: Radiology Comment on above: Acute cough [R05.1] Start: 04-05-2022 End: 04-05-2022 Patient encounter procedure Steven Rodriguez APRN.DISTRIBUTION A [employer]EMAN Work Phone: [facility] Comment on above: Burning with urinati on (Primary Dx); Acute cough; Suspected COVID-19 virus infection Start: 03-01-2022 End: 03-19-[address] Tonio Fajardo Work Phone: [facility] Start: 02-08-2022 End: 02-16-[address] Tonio Fajardo Work Phone: [facility] Start: 01-17-2022 End: 01-17-[address] Tonio Fajardo Work Phone: [facility] Start: 01-04-2022 End: 01-17-[address] Tonio Fajardo Work Phone: [facility] Start: 12-21-[address] [facility] Start: 12-19-2021 End: 12-19-2021 [facility] Start: 11-29-2021 End: 12-17-2021 Nutrition therapy [facility] Start: 11-09-2021 End: 11-17-2021 Nutrition therapy [facility] Procedures Date Procedure Procedure Detail Performing Clinician Start: 04-19-2025 Plain chest X-ray Dr. Silvana Fajardo DO Work Phone: Start: 04-19-2025 Blood count smear mc rscp w/mnl difrntl wbc count Dr. Tonio Fajardo DO Work Phone: Start: 04-19-[address] Tonio Fajardo DO Work Phone: Start: 04-19-2025 Mean corpuscular hem oglobin concentration determination Dr. Tonio Fajardo DO Work Phone: Start: 04-19-2025 Nucleated red blood cell count procedure Dr. Tonio Fajardo DO Work Phone: Start: 04-19-2025 Platelet mean volume determination Dr. Tonio Fajardo DO Work Phone: Start: 04-18-2025 Blood count smear mc rscp w/mnl difrntl wbc count Dr. Tonio Fajardo DO Work Phone: Start: 04-18-[address] Tonio Fajardo DO Work Phone: Start: 04-18-2025 Mean corpuscular hem oglobin concentration determination Dr. Tonio Fajardo DO Work Phone: Start: 04-18-2025 Nucleated red blood cell count procedure Dr. Tonio Fajardo DO Work Phone: Start: 04-18-2025 Platelet mean volume determination Dr. Tonio Fajardo DO Work Phone: Start: 04-12-2025 Blood count smear mc rscp [...] Work Phone: Start: 04-11-2025 Blood count smear [facility] w/mnl difrntl wbc count Dr. Tonio Fajardo [...] Work Phone: Start: 04-05-2025 Blood count smear rscp w/mnl difrntl wbc [...] Phone: Comment on above: Sent directly to [facility] per ordering physician. Start: 12-24-2023 Investigation [...] Radiologic exam chest 2 views Steven Rodriguez SHRIMP PEELER.[employer] Work Phone: Start: 04-05-2022 Urnls dip stick/tabl et rgnt auto w/o microscopy Onelia Cuevas SHRIMP PEELER.[employer] Work Phone: Start: 11-02-2021 X-ray of both [...] robertson Work Phone: Urine culture Dr. Tonio Ayon man Work Phone: Plan of Treatment Date Care Activity Detail Author Start: 04-19-2025 [facility] Start: 04-19-2025 Serum inorganic phos phate measurement [facility] Start: 04-19-2025 Verification routine [facility] Start: 04-19-2025 Hospital admission, emergency, from emergency room, medical nature [facility] Start: 04-19-2025 Admission procedure [facility] Start: 04-19-2025 [facility] Start: 04-19-2025 Patient discharge [facility] Start: 04-18-2025 [facility] Start: 04-18-2025 Development of care plan [facility] Start: 04-18-2025 Developing a treatme nt plan [facility] Start: 04-18-2025 Consultation for treatment [facility] Start: 04-18-2025 Wound care [facility] Start: 04-17-2025 Admission procedure [facility] Start: 04-17-2025 Introduction of urin dakota catheter [facility] Start: 04-17-2025 Measuring intake and output [facility] Start: 04-17-2025 Patient referral to dietitian [facility] Start: 04-17-2025 Referral to occupati onal therapist [facility] Start: 04-17-2025 Referral to service [facility] Start: 04-17-2025 Vital signs measurements [facility] Start: 04-17-2025 [facility] Start: 04-17-2025 Oxygen therapy [facility] Start: 04-13-2025 Development of care plan [facility] Start: 04-13-2025 End: 04-13-2025 [facility] Start: 04-13-2025 Patient discharge [facility] Start: 04-12-2025 [facility] Start: 04-11-2025 Referral to occupati onal therapist [facility] Start: 04-11-2025 Developing a treatme nt plan [facility] Start: 04-11-2025 [facility] Start: 04-11-2025 Wound care [facility] Start: 04-11-2025 Consultation for treatment [facility] Start: 04-11-2025 Contact precautions [facility] Start: 04-10-2025 Following clinical p leniway protocol [facility] Start: 04-10-2025 Admission procedure [facility] Start: 04-10-2025 Introduction of urin dakota catheter [facility] Start: 04-10-2025 Measuring intake and output [facility] Start: 04-10-2025 End: 04-11-2025 Patient referral to dietitian [facility] Start: 04-10-2025 Referral to occupati onal therapist [facility] Start: 04-10-2025 Referral to service [facility] Start: 04-10-2025 Vital signs measurements [facility] Start: 04-10-2025 Oxygen therapy [facility] Start: 04-10-2025 Patient discharge [facility] Start: 04-10-2025 End: 04-10-2025 Microbial culture, body fluid [facility] Start: 04-10-2025 Anaerobic microbial culture [facility] Start: 04-10-2025 End: 04-10-2025 [facility] Start: 04-09-2025 Referral to service [facility] Start: 04-09-2025 Care planning and pr oblem solving actions [facility] Start: 04-09-2025 Assessment of risk o f venous thromboembolism [facility] Start: 04-09-2025 Catheterization of vein [facility] Start: 04-09-2025 Notification of physician [facility] Start: 04-09-2025 Taking patient vital signs [facility] Start: 04-09-2025 Wound care [facility] Start: 04-09-2025 End: 04-09-2025 [facility] Start: 04-09-2025 Care planning and pr oblem solving actions [facility] Start: 04-09-2025 [facility] Start: 04-08-2025 Catheterization of vein [facility] Start: 04-08-2025 Notification of physician [facility] Start: 04-08-2025 [facility] Start: 04-08-2025 Referral to rim fire priming tool setter [facility] Start: 04-08-2025 End: 04-08-2025 Referral to service [facility] Start: 04-07-2025 Referral to occupati onal therapist [facility] Start: 04-07-2025 Referral to service [facility] Start: 04-07-2025 Provision of activit y privileges [facility] Start: 04-07-2025 Wound care [facility] Start: 04-06-2025 [facility] Start: 04-06-2025 Continuous pulse oximetry [facility] Start: 04-06-2025 Consultation for treatment [facility] Start: 04-06-2025 XR Chest Single view [facility] Start: 04-06-2025 [facility] Start: 04-06-2025 Inhalation therapy procedure [facility] Start: 04-05-2025 Following clinical p athway protocol [facility] Start: 04-05-2025 Assessment of risk o f venous thromboembolism [facility] Start: 04-05-2025 Care regimes management [facility] Start: 04-05-2025 Catheterization of vein [facility] Start: 04-05-2025 Insertion of cathete r into peripheral vein [facility] Start: 04-05-2025 Measuring intake and output [facility] Start: 04-05-2025 Notification of physician [facility] Start: 04-05-2025 Oxygen therapy [facility] Start: 04-05-2025 Providing care accor ding to standard [facility] Start: 04-05-2025 Provision of activit y privileges [facility] Start: 04-05-2025 Referral to occupati onal therapist [facility] Start: 04-05-2025 Referral to service [facility] Start: 04-05-2025 End: 04-05-2025 [facility] Start: 04-05-2025 Referral to drywall applicator [facility] Start: 04-05-2025 Verification routine [facility] Start: 04-05-2025 Urinalysis complete panel - Urine [facility] Start: 04-05-2025 Admission procedure [facility] Start: 04-05-2025 Hospital admission, emergency, from emergency room, medical nature [facility] Start: 04-05-2025 End: 04-05-2025 [facility] Start: 04-05-2025 Patient referral to dietitian [facility] Start: 03-27-2025 24 Hour ECG [facility] Start: 03-15-2025 [facility] Start: 03-15-2025 Control nasal hemorr min anterior simple [facility] Start: 03-09-2025 Referral to service [facility] Start: 03-09-2025 Patient discharge [facility] Start: 03-08-2025 Application of elast ic bandage [facility] Start: 03-07-2025 Introduction of urin dakota catheter [facility] Start: 03-06-2025 Inhalation therapy procedure [facility] Start: 03-05-2025 [facility] Start: 03-05-2025 Care planning and pr oblem solving actions [facility] Start: 03-05-2025 Chest 1 View (Portable) Chest 1 View (Portable) [facility] Start: 03-05-2025 XR Chest Single view [facility] Start: 03-05-2025 Care planning and pr oblem solving actions [facility] Start: 03-04-2025 Following clinical p athway protocol [facility] Start: 03-04-2025 Assessment of risk o f venous thromboembolism [facility] Start: 03-04-2025 Care regimes management [facility] Start: 03-04-2025 Catheterization of vein [facility] Start: 03-04-2025 Insertion of cathete r into peripheral vein [facility] Start: 03-04-2025 Measuring intake and output [facility] Start: 03-04-2025 Notification of physician [facility] Start: 03-04-2025 Oxygen therapy [facility] Start: 03-04-2025 Providing care accor ding to standard [facility] Start: 03-04-2025 Provision of activit y privileges [facility] Start: 03-04-2025 Referral to rim fire priming tool setter [facility] Start: 03-04-2025 Referral to occupati onal therapist [facility] Start: 03-04-2025 Referral to service [facility] Start: 03-04-2025 End: 03-04-2025 [facility] Start: 03-04-2025 Hospital admission, emergency, from emergency room, medical nature [facility] Start: 03-04-2025 Verification routine [facility] Start: 03-04-2025 Admission procedure [facility] Start: 03-04-2025 Thyroid stimulating hormone measurement [facility] Start: 03-04-2025 [facility] Start: 03-04-2025 Patient referral to dietitian [facility] Start: 04-20-2024 Covid-19 Vaccine () Covid-19 Vaccine () [facility] Start: 04-20-2024 Influenza vaccination Influenza Vacc ine (#1) [facility] Start: 08-20-2023 Advance Directive Discussion Advance Directive Discussion [facility] Start: 06-22-2023 [facility] Start: 06-08-2023 Patient discharge [facility] Start: 06-08-2023 Anes open proc bones lower leg/ankle/foot nos ANESTH LOWER LEG BONE SURG [facility] Start: 06-08-2023 Osteot w/wo lngth shrt/corrj 1st metar INCISION OF METATARSAL [facility] Start: 06-08-2023 Prep site f/s/n/h/f/ g/m/d gt 1st 100 sq cm/1pct WOUND PREP F/N/HF/G [facility] Start: 06-08-2023 Sub grft f/s/n/h/f/g /m/d <100sq cm 1st 25 sq cm SKIN SUB GRAFT FACE/NK/HF/G [facility] Start: 06-08-2023 Fluoroscopic guidance O.R. Fluoro fo r C-Arm [facility] Start: 06-08-2023 Radiography of foot Foot 2 Views [facility] Start: 12-30-2022 [facility] Start: 12-30-2022 End: 12-30-2022 Blood culture [facility] Start: 12-30-2022 End: 12-30-2022 [facility] Start: 10-16-2022 CBC W Auto Different ial panel - Blood [facility] Start: 10-16-2022 Lactate dehydrogenas e measurement [facility] Start: 10-16-2022 End: 10-16-2022 [facility] Start: 07-18-2022 [facility] Work Phone: Start: 05-18-2022 [facility] Work Phone: Start: 05-11-2022 Patient referral [facility] Work Phone: Start: 04-28-2022 CORE NDL BX LNG/MED PERQ CORE NDL BX LNG/MED PERQ [facility] Work Phone: Start: 04-28-2022 Following clinical p athway protocol [facility] Work Phone: Start: 04-28-2022 Catheterization of vein [facility] Work Phone: Start: 04-28-2022 Oxygen therapy [facility] Work Phone: Start: 04-28-2022 Patient discharge [facility] Work Phone: Start: 04-28-2022 Vital signs measurements [facility] Work Phone: Start: 04-20-2022 Influenza vaccination INFLUENZA (#1) [facility] Start: 04-05-2022 End: 04-19-2022 Influenza virus A and B RNA and SARS-CoV-2 (COVID-19) N gene panel - Respiratory specimen by BRYAN with probe detection [facility] Work Phone: Comment on above: Expected: [...] Start: 12-01-2018 DIABETES SCREEN DIABETES SCREEN [facility] Start: 12-01-2018 Diabetes Screening Diabetes [...] HEPATITIS C SCREENING HEPATITIS C SC REENING [facility] Start: 1957 Adult depression scr eening assessment [facility] 24 Hour ECG [place] Alanine aminotransfe rase [Enzymatic activity/volume] in Serum or Plasma [facility] Albumin [Mass/volume ] in Serum or Plasma [facility] Alkaline phosphatase [Enzymatic activity/volume] in Serum or Plasma [facility] Anaerobic Culture Anaerobic Culture [facility] Work Phone: Anion gap measurement [facility] Aspartate aminotrans ferase [Enzymatic activity/volume] in Serum or Plasma [facility] Bacteria identified in Blood by Culture Blood Culture [facility] Bacteria identified in Body fluid by Culture [facility] Bacteria identified in Unspecified specimen by Anaerobe culture [facility] Work Phone: Bacteria identified in Unspecified specimen by Anaerobe culture [facility] Bacteria identified in Urine by Culture URINE CULTURE Microbiology Routine Burning with urination 04/05/2022 1:58 PM EDT [facility] Work Phone: Bacteria identified in Urine by Culture Urine Culture [facility] Bilirubin, total measurement [facility] BUN/Creatinine ratio [facility] Calcium [Mass/volume ] in Serum or Plasma [facility] Carbon dioxide, tota l [Moles/volume] in Serum or Plasma [facility] CBC W Auto Different ial panel - Blood [facility] Work Phone: CBC W Auto Different ial panel - Blood [facility] CBC W Auto Different ial panel - Blood [facility] Chloride [Moles/volu me] in Serum or Plasma [facility] Creatinine [Moles/vo lume] in Serum or Plasma [facility] CT Chest and Abdomen W contrast IV [facility] CT Chest W contrast IV [facility] Work Phone: CT Chest W contrast IV [facility] Cytology report of B horace fluid Cyto stain [facility] Glucose [Mass/volume ] in Serum or Plasma [facility] Hematocrit [Volume Fraction] of Blood [facility] Hemoglobin [Mass/vol ume] in Blood [facility] Hemoglobin A1c/Hemoglobin.total in Blood [facility] Lactate dehydrogenas e measurement [facility] Lactate dehydrogenas e measurement [facility] [place] Work Phone: Leukocytes [#/volume ] in Blood [facility] Magnesium measurement [facility] Magnesium measurement [facility] Mean corpuscular hemoglobin concentration determination [facility] Mean corpuscular hemoglobin determination [facility] Measurement of renal function [facility] Microbial culture, routine Wound Culture [facility] Work Phone: Microscopic observat ion [Identifier] in Unspecified specimen by Gram stain [facility] MR Brain WO and W co ntrast IV [facility] Work Phone: Natriuretic peptide. B prohormone N-Terminal [Mass/volume] in Serum or Plasma [facility] Natriuretic peptide. B prohormone N-Terminal [Mass/volume] in Serum or Plasma [facility] Natriuretic peptide. B prohormone N-Terminal [Mass/volume] in Serum or Plasma [facility] Neutrophil count [facility] Neutrophil percent differential count [facility] Patient Education [facility] Work Phone: Patient referral [facility] Work Phone: Platelets [#/volume] in Blood [facility] Positron emission tomography with computed tomography [facility] Work Phone: Potassium [Moles/vol ume] in Serum or Plasma [facility] Procedure [place] PT Unspecified body region W [facility] Radiation oncology A ND/OR radiotherapy [facility] Work Phone: Radiation oncology A ND/OR radiotherapy [facility] Red blood cell count [facility] Red cell distributio n width determination [facility] Sodium [Moles/volume ] in Serum or Plasma [facility] Total protein measurement [facility] Troponin T.cardiac [Mass/volume] in Serum or Plasma by High sensitivity method [facility] Troponin T.cardiac [Mass/volume] in Serum or Plasma by High sensitivity method [facility] Troponin T.cardiac [Mass/volume] in Serum or Plasma by High sensitivity method [facility] Troponin T.cardiac [Mass/volume] in Serum or Plasma by High sensitivity method [facility] Urea nitrogen [Mass/volume] in Serum or Plasma [facility] Immunizations Immunization Date Immunization Notes Care Provider Fa [facility] 06-23-2024 influenza virus vaccine, unspecified formulation DR DAVID STERLING MD [facility] 02-26-2024 pneumococcal 20-shannon nt conjugate vaccine DR DAVID STERLING MD [facility] 06-01-2023 influenza virus vaccine, unspecified formulation DR DAVID STERLING MD [facility] 04-27-2022 influenza virus vaccine, unspecified formulation DR DAVID STERLING MD [facility] 12-02-2020 SARS-CoV-2 (COVID-19 ) mRNA-[address] DAVID STERLING MD [facility] Comment on above: Result Comment: 2024: [id number] 11-04-2020 SARS-CoV-2 (COVID-19 ) mRNA-[address] DAVID STERLING MD [facility] Comment on above: Result Comment: 2024: [id number] 08-03-2014 influenza virus vaccine, unspecified formulation [facility] [place] Work Phone: [facility] 06-20-2013 Influenza virus vaccine W [facility] 06-20-2013 Pneumococcal Vaccine [facility] Work Phone: 06-20-2013 pneumococcal vaccine , unspecified formulation Dr. Tonio Fajardo Work Phone: [facility] Payers Date Payer Category Payer Private Health Insurance [id number] 2022 Self-pay [id number] 2016 Self-pay [id number] 2009 Medicare [id number] 2009 Medicare [id number] 2009 [employer] ( and others) [id number] 2009 Unknown FOR LIFE [id number] 2009-Present [phone] [address] [place] [address] Indemnity [id number] .[id number] 1945 Unknown [id number] 2.16.840.1.824892.3.579.2 .627 Unknown [id number] 2.16.840.1.902956.3.579.2 .462 Unknown [id number] 2.16.840.1.324723.3.579.2 .462 Unknown [id number] 2.16.840.1.789574.3.579.2 .462 Unknown [id number] 2.16840.1.520276.3.579.2 .462 Unknown [id number] 2.840.1.210004.3.579.2 .462 Unknown [id number] 2.840.1.644795.3.579.2 .462 Unknown [id number] 2.840.1.225432.3.579.2 .462 Unknown [id number] 2.840.1.912111.3.579.2 .462 Unknown [id number] 2.840.1.523038.3.579.2 .462 Unknown [id number] 2.840.1.722502.3.579.2 .462 Unknown [id number] 2.840.1.133985.3.579.2 .462 Unknown [id number] 2.840.1.982888.3.579.2 .462 Unknown [id number] 2.840.1.153582.3.579.2 .462 Unknown [id number] 2.840.1.703337.3.579.2 .462 Unknown [id number] 2.840.1.287287.3.579.2 .462 Unknown [id number] .840.1.979511.3.579.2 .462 Unknown [id number] .840.1.779165.3.579.2 .462 Unknown [id number] .840.1.109884.3.579.2 .462 Unknown [id number] 2.840.1.556117.3.579.2 .462 Unknown [id number] 2.840.1.715832.3.579.2 .462 Unknown [id number] 2.840.1.926153.3.579.2 .462 Unknown [id number] 2.16.840.1.365240.3.579.2 .462 Unknown [id number] 2.16.840.1.741307.3.579.2 .462 Unknown [id number] 2.16.840.1.738985.3.579.2 .462 Unknown [id number] 2.16.840.1.409113.3.579.2 .462 Unknown [id number] 2.16.840.1.384410.3.579.2 .462 Unknown [id number] 2.16.840.1.229768.3.579.2 .462 Unknown [id number] 2.16.840.1.142710.3.579.2 .462 Unknown [id number] 2.840.1.617436.3.579.2 .462 Unknown [id number] 2.840.1.643494.3.579.2 .462 Unknown [id number] 2.840.1.982675.3.579.2 .462 Unknown [id number] 2.16.840.1.887603.3.579.2 .462 Unknown [id number] 2.16840.1.239285.3.579.2 .462 Unknown [id number] 2.16840.1.613415.3.579.2 .462 Unknown [id number] 2.840.1.269307.3.579.2 .462 Unknown [id number] 2.16.840.1.905875.3.579.2 .462 Unknown [id number] 2.16.840.1.634479.3.579.2 .462 Unknown [id number] 2.16.840.1.617252.3.579.2 .462 Unknown [id number] 2.16.840.1.401514.3.579.2 .462 Unknown [id number] 2.16840.1.930278.3.579.2 .462 Unknown [id number] 2.16.840.1.602750.3.579.2 .462 Unknown [id number] 2.16.840.1.246803.3.579.2 .462 Unknown [id number] 2.16.840.1.757666.3.579.2 .462 Unknown [id number] 2.16.840.1.893496.3.579.2 .462 Unknown [id number] 2.16.840.1.894141.3.579.2 .462 Unknown [id number] 2.16.840.1.419190.3.579.2 .462 Social History Date Type Detail Facility Start: 01-06-2021 End: 10-31-2023 Tobacco smoking status [facility] Unknown if ever smoked [facility] Start: 08-27-2013 None [facility] Start: 03-18-2014 Spouse/ Signif icant Other [facility] Start: 06-20-2014 Non-smoker [facility] Start: 1945 Sex Assigned At Male W [facility] Start: 04-05-2022 End: 04-19-2025 Tobacco smoking status MEIS Ex-smoker [facility] Work Phone: History of tobacco use Current smoker [facility] Work Phone: History of tobacco use Cigarette Smoker [facility] Work Phone: Start: 04-05-2022 Tobacco use and exposure Former smokeless tobacco user [facility] Work Phone: Start: 1945 Sex Assigned At Not on file C [facility] Start: 03-26-2022 End: 04-05-2022 Exposure to SARS-CoV-2 (event) Not sure [facility] Work Phone: Start: 04-05-2022 History of Social function [facility] Start: 04-05-2022 Tobacco use panel [facility] Start: 10-30-2024 End: 04-13-2025 Sex Male (finding) [facility] Tobacco smoking status [facility] Medical Equipment Procedure Code Equipment Code Equipment [...] FDA Start: 06-08-2023 Bunionectomy FDA Start: 06-08-2023 ([id number]) [id number](2 1)[id number] FDA Start: 04-09-2025 ([id number]) [id number] [id number] 1)[id number] FDA Start: 04-09-2025 ([id number]) ()[id number] [id number] 1)[id number] FDA Start: 04-09-2025 Goals Date Patient Goal Desired Activity /State Functional Status Date Assessment Result Facility 04-19-2025 Functional status Bedrest [facility] Work Phone: 04-12-2025 Functional status Chair [facility] Work Phone: 04-10-2025 Functional status Stand and pivot [facility] Work Phone: 03-09-2025 Functional status Chair [facility] Work Phone: Mental Status Date Assessment Result Facility 04-19-2025 Cognitive function Awake;Alert;A ppropriate;Follow s Commands [facility] Work Phone: 04-18-2025 Cognitive function Voice/Name [facility] Work Phone: 04-17-2025 Cognitive function Appropriate;Cooperativ e [facility] Work Phone: 04-12-2025 Cognitive function Voice/Name [facility] Work Phone: 04-10-2025 Cognitive function Voice/Name [facility] Work Phone: 04-05-2025 Cognitive function Awake;Alert;A ppropriate;Follow s Commands [facility] Work Phone: 03-09-2025 Cognitive function Voice/Name [facility] Work Phone: 06-08-2023 Cognitive function Voice/Name [facility] Work Phone: 12-30-2022 Cognitive function Level Of Cons ciousness Awake;Alert;Appropriate;Follow s Commands [facility] Work Phone: 04-28-2022 Cognitive function Voice/Name [facility] Work Phone: 04-14-2022 Cognitive function Level Of Cons ciousness Awake;Appropriate;Follows Commands;Drowsy [facility] Work Phone: Clinical Notes 04-05-2022 to 04-19-2025 Note Date & Type Note Facility 04-19-2025 Progress note Note Date/Time April 19, 2025 10:10am [facility] Medical Records Department [address] [place] [address] Progress Note - Pharmacy 04/19/25819 MR#: [id number] Acct: [id number] Name: PEDRO HILLMAN Rep #:[id number] : 1945 80 From: Mukul Barbosa PCP: Dr. Tonio Fajardo, DO Status:ADM IN Location: TCU TC22-1 Documented by User: Mukul Barbosa 04/19/25 08:39 TCU RX Drug Regimen Review Subjective/Objective Subjective/Objective Subjective: TCU admission. 80 year old male with below past medical history hospitalized for acute respiratory failure with hypoxia 2/2 pneumonia, pneumothorax, pleural effusion, acute HFpEF, complicated by COPD, admitted to TCU with debility, here for rehabilitation, strengthening, prior to discharge home alone. Objective: Allergies ibuprofen Allergy (Severe, Verified 04/05/25 16:44) Facial swelling (angioedema) Current Medications Generic Name Dose Route Start Last Admin Trade Name Freq PRN Reason Stop Dose Admin Acetaminophen 1,000 mg 04/17/25 20:16 04/17/25 22:54 Acetaminophen 500 Mg Tablet PO 1,000 mg Q6H PRN PRN Administration Pain Score 1-10 Albuterol Sulfate 2 puff 04/17/25 19:10 Albuterol Ih (6.7 Gm) 1 Puff Inhaler INHALATION Q4H PRN shortness of breath or wheezing Albuterol/Ipratropium 3 ml 04/18/25 11:00 04/18/25 14:30 Ipratropium/Albuterol Sulfate 3 Ml Ampul.Neb INHALATION 3 ml Q8H.RT FROY Administration Apixaban 2.5 mg 04/17/25 22:00 04/19/25 08:07 Apixaban 2.5 Mg Tablet (Wch) PO 2.5 mg BID FROY Administration Calamine/Phenol 1 applic 04/18/25 10:00 04/18/25 21:40 Menthol/Lanolin/Calamine/Znox 113 Gm Tube TOPICAL 1 applic BID FROY Administration Protocol Clopidogrel Bisulfate 75 mg 04/18/25 10:00 04/19/25 08:08 Clopidogrel Bisulfate 75 Mg Tablet PO 75 mg DAILY FROY Administration Furosemide 40 mg 04/18/25 10:00 04/19/25 08:08 Furosemide 40 Mg Tablet PO 40 mg DAILY FROY Administration Protocol Guaifenesin 1,200 mg 04/17/25 22:00 04/18/25 21:41 Guaifenesin 1,200 Mg Tablet PO 1,200 mg BID FROY Administration Insulin Glargine 30 unit 04/17/25 22:00 04/18/25 21:40 Insulin Glargine-Yfgn 100 Unit/Ml Pen SC 30 unit QHS FROY Administration Linagliptin 5 mg 04/18/25 10:00 04/19/25 08:09 Linagliptin 5 Mg Tablet PO 5 mg DAILY FROY Administration Magnesium Citrate 300 ml 04/17/25 20:16 Magnesium Citrate 300 Ml PO DAILY PRN CONSTIPATION Metoprolol Succinate 12.5 mg 04/17/25 22:00 04/19/25 08:08 Metoprolol(Xl)Succ 25 Mg Tablet PO 12.5 mg BID FROY Administration Protocol Multivitamins 1 tablet 04/18/25 10:00 04/18/25 08:50 Multivitamins,Therapeutic Tablet PO 1 tablet DAILY FROY Administration Nutritional Formula (Lactose Free) 120 ml 04/18/25 12:45 04/18/25 17:42 Glucerna Shake 120 Ml Liquid PO 120 ml TIDCM [facility] Administration Nystatin 1 applic 04/18/25 10:00 04/18/25 21:40 Nystatin Powder 15gm Bottle TOPICAL 1 applic BID [facility] Administration Protocol Pravastatin Sodium 20 mg 04/17/25 22:00 04/18/25 21:41 Pravastatin 20 Mg Tablet PO 20 mg QHS FROY Administration Senna/Docusate Sodium 2 tablet 04/17/25 22:00 04/18/25 21:41 Senna/Docusate Sodium 1 Tablet PO 2 tablet BID FROY Administration Tamsulosin HCl 0.4 mg 04/18/25 17:30 04/18/25 17:42 Tamsulosin Hcl 0.4 Mg Capsule PO 0.4 mg DAILY@1730 FROY Administration Tuberculin PPD 0.1 ml 04/25/25 10:00 Tuberculin,Purif.Prot.Deriv. 50 Tu/Ml Vial ID 04/25/25 10:01 X1 ONE Problem List Pleural effusion (Acute) Pneumothorax (Acute) Pneumonia (Acute) BPH (benign prostatic hyperplasia) (Acute) Type 2 diabetes mellitus with hyperglycemia (Acute) Atrial fibrillation (Acute) Tachy-brittany syndrome (Acute) Acute heart failure with preserved ejection fraction (HFpEF) (Acute) Acute respiratory failure with hypoxia (Acute) Debility (Acute) COPD (chronic obstructive pulmonary disease) (Chronic) Hyperlipidemia (Chronic) Vital Signs Temp Pulse Resp BP Pulse Ox O2 Del Method O2 Flow Rate 97.4 F L 102 H 18 118/67 100 Nasal Cannula 3 04/19/25 07:54 04/19/25 08:08 04/19/25 07:54 04/19/25 07:54 04/19/25 07:54 04/19/25 07:54 04/19/25 07:54 Oxygen Flow Rate (L/min) 3 Oxygen Delivery Method Nasal Cannula Weight: 67.041 kg Body Mass Index (BMI) 23.8 Sodium 137 mmol/L (133-145) 04/18/25 06:05 Potassium 3.4 mmol/L (3.3-5.1) 04/18/25 06:05 Chloride 89 mmol/L (98-108) L 04/18/25 06:05 Carbon Dioxide 36.0 mmol/L (21.0-32.0) H 04/18/25 06:05 Anion Gap 12 (5-15) 04/18/25 06:05 BUN 43 mg/dL (4-19) H 04/18/25 06:05 Creatinine 1.73 mg/dL (0.70-1.20) H 04/18/25 06:05 Est GFR (MDRD) Non-Af 39 (>60) L 04/18/25 06:05 BUN/Creatinine Ratio 25.1 RATIO (10-20) H 04/18/25 06:05 Glucose 104 mg/dL (70-99) H 04/18/25 06:05 Assessment/Plan: 1. Pain: acetaminophen 1000 mg Po Q6H PRN pain. The patient has used 1 dose of acetaminophen so far this admission. Please continue to monitor pain levels, PRNmedication usage, and LFTs (AST/ALT = 19/13 U/L on 04/06/25). 2. Bowel: senna/docusate 2 tablets PO BID, magnesium citrate 300 mL PO daily PRNconstipation. The patient has not required any PRN doses of magnesium citrate sofar this admission, and the patient's last bowel movement was documented on 04/19/25. Please continue to monitor for bowel movements, for PRN medication usage, for constipation, and diarrhea. 3. Atrial fibrillation/chronic HFpEF/PAOD: apixaban 2.5 mg PO BID, metoprolol succinate 12.5 mg PO daily, clopidogrel 75 mg PO daily, furosemide 40 mg PO daily. Please continue to monitor for s/s of stroke, for bleeding/excessive bruising, renal function (serum creatinine = 1.73 g/dL with creatinine clearance~ 31 mL/min on 04/18/25), heart rates (recent range = 99-106 beats/min), blood pressures (recent range = 105-135/46-68 mmHg), for fatigue, hemoglobin levels (Hgb = 9.0 g/dL on 04/18/25), platelet counts (Plt = 186 K/mm3 on 04/18/25), sodium levels (Na = 137 mmol/L on 04/18/25), potassium levels (K = 3.4 mmol/L on 04/18/25), and for s/s of dehydration. 4. Diabetes Mellitus: linagliptin 5 mg PO daily, insulin glargine 30 units QHS. Please continue to monitor blood glucose levels (recent range = 99-217 mg/dL), hemoglobin A1C levels (A1C = 6.3% on 03/04/25), and for s/s of hypo/hyperglycemia. 5. COPD: ipratropium/albuterol 3 mL Q8H, albuterol 2 puffs Q4H PRN shortness of breath. The patient has not required any PRN doses of albuterol so far this admission. Please continue to monitor respiratory status, for s/s of a COPD exacerbation such as cough and increased sputum production, as well as for dry mouth, and palpitation. 6. Hyperlipidemia: pravastatin 20 mg PO QHS. Please continue to monitor lipid levels (cholesterol = 117 mg/dL with LDL = 63 mg/dL on 03/05/25), LFTs (AST/ALT =19/13 U/L on 04/06/25), and for myalgias. 7. BPH: tamsulosin 0.4 mg PO daily. Please continue to monitor for urinary retention, and for s/s of orthostasis. 8. Congestion: guaifenesin 1200 mg PO BID. Please continue to monitor for congestion and dehydration. 9. Nutrition: multivitamin 1 tablet PO daily, glucerna 120 mL PO TID with meals.Please continue to monitor overall nutritional status. 10. Skin irritation/tinea corporis: calmoseptine 1 application topically BID, nystatin powder 1 application topically BID. Please continue to monitor for skinirritation and for resolution of tinea corporis. Assessment/Plan for indications treated with psychotropic medications: NA Medical chart and medication regimen reviewed. The following medication irregularities or issues were identified: NA Date Date of Note: 04/19/25 Documented by User: Dr. Valdez Olivo MD 04/19/25 10:10 TCU RX Drug Regimen Review Provider Comments Provider responsibility Provider Comments to Recommendations by Pharmacy Agree 04/19/25 0839 <Electronically signed by Mukul Barbosa> Mukul Barbosa Cosigner Signature (if applicable): 04/19/25 1010 <Electronically signed by Valdez Olivo MD> CC: ~ Signed [facility] Work Phone: 1(403) 648-124408-30-2025 Note. MICRO - Microbiology PROCEDURE: Blood Culture [...] Locations *1: This test was performed at: [address], [facility] , [facility]08-30-2025 Note. MICRO - Microbiology PROCEDURE: Blood Culture [...] Locations *1: This test was performed at: [address], [facility] , [facility]08-30-2025 History and physical note Author [facility] Note Date/Time April 18, 2025 6: 56am [facility] Medical Records Department [address] [place] [id number] History & Physical Exam 04/17/251940 MR#: [id number] Acct: [id number] Name: PEDRO HILLMAN Rep #:[id number] : 1945 80 From: Valdez Olivo MD PCP: Dr. Tonio Fajardo, DO Status:ADM IN Location: TCU TCU22-1 HPI - General General Date of Admission: 04/17/25 Date of Service: 04/18/25 Chief Complaint: Here for rehabilitation. HPI Narrative PEDRO HILLMAN, is a 80 Male who presents with followin04/12/2025 [facility] ED TCU resident shortness of breath, hypoxia, tachycardia. Diagnosed with pneumothorax, pneumonia, acute on chronic HFpEF, COPD exacerbation. Transfer to [facility] 2/ complicated pneumothorax. 04/13/2025 Admit [facility]. Ceftriaxone, Azithromycin, blood cultures, urinary antigens for strep pneumo,legionella, for sepsis, pneumonia. Consult CT surgery for loculated pleural effusion, pneumothorax. Hold Eliquis in case of surgery. EKG, trend troponin for elevated troponin. 04/14/2025 CT surgery recommended no surgery for pneumothorax. 04/14/2025 Oxygen 3 liters per nasal cannula. Chest X-ray showed moderate pulmonary edema, small left. Right moderate pleural effusion, small right apical pneumothorax. Tachycardic with heart rate in the 100's. Ceftriaxone, stop Azithromycin, urine antigens negative for atypical pneumonia. Lasix 20mg IV x 1 dose, then Lasix 40mg daily for acute HFpEF. Consider repeat thoracentesis. Troponin flat, 2/2 demand ischemia. Increase Metoprolol to 25mg po bid, Hold Eliquis for atrial fibrillation, tachycardia. Heparin if chest tube necessary. 04/15/2025 Ultrasound guided thoracentesis removed 1000mL fluid. 04/15/2025 Ceftriaxone IV for pneumonia. Pneumothorax resolved. CT surgery recommended no surgery for pleural effusion, if pleural effusion recurrent, may need IR guided pleural catheter placement. Lasix 40mg, Metolazone x 1 for acute HFpEF. Troponin flat. 04/16/2025 Ceftriaxone IV for pneumonia. Repeat Chest X-ray tomorrow. SHELLY compression, bilateral lower extremity edema. Metoprolol 25mg bid, heparin for atrial fibrillation. Restart Eliquis tomorrow if no intervention needed. 04/17/2025 Admit to TCU with debility, here for rehabilitation, strengthening, prior to discharge home alone. [facility] Medical History (Updated 04/18/25 @ 00:01 by Background Daemon) Presence of cardiac pacemaker Peripheral arterial disease Other persistent atrial fibrillation New onset atrial flutter COVID Wears hearing aid in both ears Former smoker Coronary artery disease Peripheral vascular occlusive disease BPH (benign prostatic hyperplasia) Chronic kidney disease, stage 3 Atherosclerosis of coronary artery of [place] heart without angina pectoris Hyperlipidemia Lower extremity [...] 100 mg PO DAILY PRN sto ol softner 07/25/23 Unknown History (Colace) albuterol sulfate 90 [...] Unknown History insulin glargine 100 unit/mL (3 30 unit subcut QHS Blo od sugar 04/05/25 Unknown History mL) subcutaneous pen (Lantus Solostar U-100 Insulin) furosemide 40 mg tablet (Lasix) 40 mg PO DAILY diureti c #60 tabs 04/08/25 Unknown Rx guaifenesin 600 mg tablet, 1,200 mg (2 x 600 mg) PO BI D mucus 04/08/25 Unknown Rx extended release 12 hr (Mucinex) #20 tabs OXYGEN - Supplemental ([facility] 04/09/25 Unknown History INFORMATIONAL USE ONLY) aspirin 81 mg chewable tablet 1 tab PO DAILY [facility] 04/17/25 Unknown History ipratropium 0.5 mg-albuterol 3 mg 3 ml inhalation Q8H SOB 04/17/25 Unknown History (2.5 mg base)/3 mL nebulization soln lanolin alcohols-mineral 1 applic topical BID dry ski n 04/17/25 Unknown History oil-w.petrolatum-ceresin topical cream (Eucerin topical cream) Allergy/AdvReac Type Severity Reaction Status Date / Time ibuprofen Allergy Severe Facial Verified 04/05/25 16:44 swelling (angioedema) Family History Brother Diabetes Father , Age 72 stomach ulcers No problems noted. Mother , Age 71 pancreatitis No problems noted. Sister , hepatitis C No problems noted. Surgical History (Updated 04/18/25 @ 00:01 by Nicole Guy) History of permanent cardiac pacemaker placement H/O aorto-femoral bypass (~2009) History of transurethral [...] hallucinations, depression, homicidal ideation or suicidal ideation Vital Signs Vital Signs Vital Signs: 04/17/25 18:17 Temperature 98.2 F Temperature Source Temporal Pulse Rate 104 H Respiratory Rate 20 H Blood Pressure 109/51 L Blood Pressure Mean 70 Blood Pressure Source Monitor Blood Pressure Position Sitting Blood Pressure Location Left Arm Pulse Ox 98 Oxygen Delivery Method Nasal Cannula Oxygen Flow Rate (L/min) 2 Weight Weight: 67.041 kg Body Mass Index (BMI) 23.8 Physical Exam Const alert General Appearance: cooperative HEENT normocephalic HEENT Narrative: Oxygen per nasal cannula. Eyes PERRL and EOMs intact bilaterally Neck supple, no JVD and no carotid bruits Resp normal respiratory effort, normal air movement and clear to auscultation bilaterally Auscultation: diminished lung sounds bilateral lower Cardio regular rate and regular rhythm GI normal to inspection, nondistended, normoactive bowel sounds, non-tender and non-distended Extremity normal capillary refill General Extremity: Negative for edema Skin no rashes or lesions noted General Skin Exam: no breakdown Psych affect normal Appearance: appropriate Results Lab / Micro Data 04/18/25 06:05 04/18/25 06:05 Assessment & Plan Assessment/Plan (1) Debility: (2) Acute respiratory failure with hypoxia: (3) Pneumonia: (4) Pneumothorax: (5) Pleural effusion: (6) Acute heart failure with preserved ejection fraction (HFpEF): (7) Tachy-brittany syndrome: (8) COPD (chronic obstructive pulmonary disease): QUALIFIERS: COPD type: emphysema Emphysema type: centrilobular Qualified Code(s): J43.2 - Centrilobular emphysema (9) Atrial fibrillation: (10) Type 2 diabetes mellitus with hyperglycemia: (11) Hyperlipidemia: QUALIFIERS: Hyperlipidemia type: unspecified Qualified Code(s): E78.5 - Hyperlipidemia, unspecified (12) BPH (benign prostatic hyperplasia): PLAN: Plan 80 year old male with below past medical history hospitalized for acute respiratory failure with hypoxia 2/2 pneumonia, pneumothorax, pleural effusion, acute HFpEF, complicated by COPD, admitted to TCU with debility, here for rehabilitation, strengthening, prior to discharge home alone. * Debility - PT/OT. * Pain - Tylenol 1000mg q6 prn pain (1-10). * Bowel - senna/colace 2 tablets bid, Magnesium citrate 300mL daily prn. * Adult immunization - Administer pneumonia vaccine, covid vaccine, flu vaccine as appropriate. * DVT prophylaxis - on Eliquis. * COPD - Duoneb 3ml neb q6 prn, albuterol 2 puffs q4 prn. * Atrial fibrillation - Metoprolol succinate 12.5mg bid, Eliquis 2.5mg bid. * PAOD - Plavix 75mg daily, Eliquis 2.5mg bid. * Chronic HFpEF - Metoprolol succinate 12.5mg bid, Furosemide 40mg daily. * Congestion - Mucinex 1200mg bid. * Diabetes Mellitus II - Tradjenta 5mg daily, Glargine 30 units qhs. * Nutrition - MVI 1 tablet daily. * Hyperlipidemia - Pravastsatin 20mg qhs. * BPH - Tamsulosin 0.4mg daily. 04/18/25 0656 <Electronically signed by Valdez Olivo MD> Cosigner Signature (if applicable): CC: Dr. Tonio Fajardo, DO; Dr. Valdez Olivo MD~ Signed [facility] Work Phone: [phone]) 878-386308-29-2025 Discharge summary Date of Service 04/17/2025 Discharge [...] nasal cannula presented as a transfer from [facility] for further evaluation of possible hydropneumothorax. Apparently, patient underwent pacemaker placement at [facility] last week , next day, patient was found to have pleural effusion and underwent thoracentesis and was admitted to rehab at [facility]. Patient found to have hypoxia and [...] with cardiothoracic surgery, he was transferred to [facility]. Patient admitted to hospital service, started on antibiotics with cardiothoracic surgery and pulmonology on consultation. No plan for surgical intervention. Pneumothorax seems to be resolved. Patient underwent thoracentesis yesterday with 1000 cc fluid removal. Currently on IV ceftriaxoneand completed a 5 day course prior to [...] tablet)500 Milligram by mouth every day. insulin isrypovb81 unit(s) Subcutaneous daily at bedtime. metoprolol (metoprolol succinate 25 mg oral TABLET extended release)0.5 tab(s) by mouth two (2) times a day. Do not crush or chew (controlled release). multivitamin with minerals (Multi-Braden)1 tab by mouth every day. bloghnzpjzn41 Milligram by mouth once a day. SITagliptin (Januvia 50 mg oral tablet)1 tab(s) by mouth once a day. tamsulosin (tamsulosin 0.4 mg oral capsule)1 cap by mouth once a day. umeclidinium-vilanterol (Anoro Ellipta 62.5 mcg-25 mcg/inh inhalation powder)1 puff(s) by inhalation once a day. Discontinued cefdinir (cefdinir 300 mg oral capsule)1 cap by mouth every 12 hours for 5 Days. [id number] Milligram by mouth two (2) times a day for 5 Days. Follow Up Follow Up with TONIO FAJARDO DO When:Within 1-2 days Where:[address] [place] [address]- Additional Information: Please call the office to [...] by JERO ROSARIO on 04/17/2025 01:18 PM [id number] Hospital Discharge instructions Patient Education 04/17/2025 13:56:28 Pneumothorax Pneumothorax A pneumothorax is commonly called a collapsed lung. It is a condition in which air leaks from a lung and builds up between the thin layer of tissue that covers the lungs (visceral pleura) and the interior wall of the chest cavity (parietal pleura). The air gets trapped outside the lung, between thelung and the chest wall (pleural space). The air takes up space and prevents the lung from fully expanding. This condition sometimes occurs suddenly with no apparent cause. The buildup of air may be small orlarge. A small pneumothorax may go away on its own. A large pneumothorax will require treatment andhospitalization. What are the causes? This condition may [...] of treatment is to remove the extra airand allow your lung to expand back to [...] from a pleural space where no additional leakageis taking place. ?A chest tube. This is [...] says it is okay. General instructions Take ubdy-yhm-wcvskwu and prescription medicines only as told by [...] redness, increasing pain, or discharge at the sitewhere it was placed. Get help right away [...] in which air leaks from a lung andgets trapped between the lung and the chest wall (pleural space). The buildup of air may be small or large. A small pneumothorax may go away on its own. A large pneumothorax will require treatment and hospitalization. Treatment for this condition depends on how severe the pneumothorax is. The goal of treatment is toremove the extra air and allow the lung to expand back to its normal size. This information is not intended to replace advice given to you by your health care provider. Make sure you discuss any questions you have with your health care provider. Document Released: 08/06/2006 Document Revised: 07/19/2018 Document Reviewed: 07/15/2018 [employer] Patient Education 2020 [employer]. Follow Up Care 04/13/2025 00:27:18 With:Waqar U - [phone] Address:Unknown When:1-2 days With:TONIO FAJARDO DO Address: [address] [place] [address]- When:1-2 days Comments:Please call the office to schedule a hospital follow up appointment. [facility] 08-29-2025 Note Discharge Instructions Thank you for allowing [facility] to assist you with your healthcare needs. The following is importantdischarge information regarding your hospital visit. 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 Cardiac pacemaker in situ Chronic anemia CKD (chronic kidney disease) COPD with hypoxia Diabetes Diastolic heart failure Elevated troponin HLD (hyperlipidemia) HTN (hypertension) PAD (peripheral artery disease) Peripheral neuropathy Pneumonia Right Hydropneumothorax What to do next Follow Up Appointments Follow Up with [facility] - [phone] When:Within 1-2 days Follow Up with TONIO FAJARDO DO When:Within 1-2 days Where:[address] [place], [place] [id number] Additional Information: Please call the office to [...] and or supplements as they may interact withyour home medications. What How Much When Instructions [...] air gets trapped outside the lung, between thelung and the chest wall (pleural space). The air takes up space and prevents the lung from fully expanding. This condition sometimes occurs suddenly with no apparent cause. The buildup of air may be small orlarge. A small pneumothorax may go away on its own. A large pneumothorax will require treatment andhospitalization. What are the causes? This condition may [...] of treatment is to remove the extra airand allow your lung to expand back to [...] says it is okay. General instructions Take yvsn-fcx-ukmnylr and prescription medicines only as told by [...] redness, increasing pain, or discharge at the sitewhere it was placed. Get help right away [...] in which air leaks from a lung andgets trapped between the lung and the chest wall (pleural space). The buildup of air may be small or large. A small pneumothorax may go away on its own. A large pneumothorax will require treatment and hospitalization. Treatment for this condition depends on how severe the pneumothorax is. The goal of treatment is toremove the extra air and allow the lung to expand back to its normal size. This information is not intended to replace advice given to you by your health care provider. Make sure you discuss any questions you have with your health care provider. Document Released: 08/06/2006 Document Revised: 07/19/2018 Document Reviewed: 07/15/2018 Elsevier Patient Education 2020 [employer] Additional Information VACCINATE! IT SAVES LIVES! Members of the community who have not yet received the COVID-19 vaccine and would like to receive it can visit one of [facility] vaccine clinics. There are many vaccine clinic locations within the [facility]. For locations and available times, please visit [email or web address]/. It is important to note that some COVID mobile vaccine clinics are held outdoors and may be canceled in rainy or stormy conditions. To learn more about pediatric vaccinations (ages 5-11), we invite you to visit the [employer] webpage. https://[email or web address].org/pages/9487-Tiyvz-Dodctxmwdbg-Siugafatnu-Uvyum-Ypy stions.htmlTo learn more about the COVID-19 vaccine, we invite you to visit the CDC website for a list of frequently asked questions.https://www.cdc.gov/coronavirus/2019-ncov/vaccines/faq.html [employer] Patient Portal Access Instructions: Stay connected with your healthcare team and access your personal medical information anytime with the [employer] Patient Portal. Please follow the directions below to create your [employer] account: 1.Access the email account you provided upon registration to the hospital/physician office.2.Look for an invitation email from [facility].3.Open the email and access the invitation link: AcceptInvitation to [facility].4.Fill in the required johnson to create your account. To access your account, visit [email or web address]. Click the blue button labeled Access Patient Portal and then log in with the username and password that you created in the steps above. You will be able to view your test results, lab results, a summary of your visits, upcoming appointments and more. There is also a convenient messaging option where you can send secure messages to your p rovider. In addition, you will have the ability to download any documents or summaries to your computer and/or send the information securely to a physician. Remember that your healthcare information is confidential, so carefully consider who you will allowto register on the [facility] for access to your information. You can also access the [facility] on the [facility] katia. Simply click on Patient Portal and then log into your account. If you would like to receive a full copy of your medical records, please contact the [facility] Medical Records Department by calling [phone], Sunday through Sunday between 8 a.m. and 4:30 p.m. HOW TO SAFELY DISPOSE OF PRESCRIPTION MEDICATIONS Please use one of the following methods to safely dispose of your unused medications. 1.Use a drug disposal kit: the drug disposal pouch allows you to safely discard your old and unuseddrugs. Ask your nurse to give you one when you are discharged.2.Visit a local take-back location: Many local pharmacies and police departments have programs that collect old and unwanted prescriptiondrugs. Call your local pharmacy or go to http://ShopTutors/4M4Vl6f to find one close to you.3.Make use of household items: Use cat litter or old coffee grounds to dispose medications if other options arenot available. Mix your drugs with these household products, seal them in an airtight container andthrow it into the garbage. Call [facility]: [phone] to be sure your drugs can be [...] aware that I should contact my doctor. 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 The following is importantdischarge information regarding your hospital visit. 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 Cardiac pacemaker in situ Chronic anemia CKD (chronic kidney disease) COPD with hypoxia Diabetes Diastolic heart failure Elevated troponin HLD (hyperlipidemia) HTN (hypertension) PAD (peripheral artery disease) Peripheral neuropathy Pneumonia Right Hydropneumothorax What to do next Follow Up Appointments Follow Up with [facility] - [phone] When:Within 1-2 days Follow Up with TONIO FAJARDO DO When:Within 1-2 days Where:[address] [place] [address]- Additional Information: Please call the office to [...] and or supplements as they may interact withyour home medications. What How Much When Instructions [...] to receive it can visit one of [facility] vaccine clinics. There are many vaccine clinic locations within the [facility]. For locations and available times, please visit [email or web address] It is important to note that some COVID mobile vaccine clinics are held outdoors and may be canceled in rainy or stormy conditions. To learn more about pediatric vaccinations (ages 5-11), we invite you to visit the [facility] webpage. https://www.[facility].org/pages/3366-Donmu-Ghrmcuspgcu-Qultoqrwob-Jowfs-Lwr stions.htmlTo learn more about the COVID-19 vaccine, we invite you to visit the CDC website for a list of frequently asked questions.https://www.cdc.gov/coronavirus/2019-ncov/vaccines/faq.html [facility] Patient Portal Access Instructions: Stay connected with your healthcare team and access your personal medical information anytime with the [facility] Patient Portal. Please follow the directions below to create your [employer] account: 1.Access the email account you provided upon registration to the hospital/physician office.2.Look for an invitation email from [facility].3.Open the email and access the invitation link: AcceptInvitation to [facility].4.Fill in the required johnson to create your account. To access your account, visit [email or web address]. Click the blue button labeled Access Patient Portal and then log in with the username and password that you created in the steps above. You will be able to view your test results, lab results, a summary of your visits, upcoming appointments and more. There is also a convenient messaging option where you can send secure messages to your p YouDroop LTDvider. In addition, you will have the ability to download any documents or summaries to your computer and/or send the information securely to a physician. Remember that your healthcare information is confidential, so carefully consider who you will allowto register on the [facility] Patient Portal for access to your information. You can also access the [facility] Patient Portal on the [facility] katia. Simply click on Patient Portal and then log into your account. If you would like to receive a full copy of your medical records, please contact the [facility] Medical Records Department by calling [phone], Sunday through Sunday between 8 a.m. and 4:30 p.m. HOW TO SAFELY DISPOSE OF PRESCRIPTION MEDICATIONS Please use one of the following methods to safely dispose of your unused medications. 1.Use a drug disposal kit: the drug disposal pouch allows you to safely discard your old and unuseddrugs. Ask your nurse to give you one when you are discharged.2.Visit a local take-back location: Many local pharmacies and police departments have programs that collect old and unwanted prescriptiondrugs. Call your local pharmacy or go to http://SpeechTrans.[employer] [place]/5X9Mk3i to find one close to you.3.Make use of household items: Use cat litter or old coffee grounds to dispose medications if other options arenot available. Mix your drugs with these household products, seal them in an airtight container andthrow it into the garbage. Call [facility]: [phone] to be sure your drugs can be [...] aware that I should contact my doctor. 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 Apparently, patient underwent pacemaker placement at [facility] last week , next day, patient was found to have pleural effusion and underwent thoracentesis and was admitted to rehab at [facility]. Patient found to have hypoxia and [...] with cardiothoracic surgery, he was transferred to [facility]. Patient admitted to hospital service, started on antibiotics with cardiothoracic surgery and pulmonology on consultation. No plan for surgical intervention. Pneumothorax seems to be resolved. Patient underwent thoracentesis yesterday with 1000 cc fluid removal. Currently on IV ceftriaxoneand completed a 5 day course prior to [...] tablet)500 Milligram by mouth every day. insulin efeesfrc87 unit(s) Subcutaneous daily at bedtime. metoprolol (metoprolol succinate 25 mg oral TABLET extended release)0.5 tab(s) by mouth two (2) times a day. Do not crush or chew (controlled release). multivitamin with minerals (Multi-Braden)1 tab by mouth every day. glvrbmudqfw00 Milligram by mouth once a day. SITagliptin (Januvia 50 mg oral tablet)1 tab(s) by mouth once a day. tamsulosin (tamsulosin 0.4 mg oral capsule)1 cap by mouth once a day. umeclidinium-vilanterol (Anoro Ellipta 62.5 mcg-25 mcg/inh inhalation powder)1 puff(s) by inhalation once a day. Discontinued cefdinir (cefdinir 300 mg oral capsule)1 cap by mouth every 12 hours for 5 Days. obfcmbTNKR69 Milligram by mouth two (2) times a day for 5 Days. Follow Up Follow Up with TONIO FAJARDO DO When:Within 1-2 days Where:[address] [place] [address]- Additional Information: Please call the office to [...] by JERO ROSARIO on 04/17/2025 01:18 PM [facility] [id number] Note* Exam Date Time Procedure Performing Provider Status 04/17/25 7:03 AM XR Chest 1 View KRISTEN MAKI MD; Aut h (Verified) [id number] ORIGINAL EXAMINATION: ONE XRAY VIEW OF THE [...] 04/17/2025 8:12:37 AM Ordering Provider: GLORIA DAVIS [facility] [id number] NoteORIGINAL PROCEDURE: ULTRASOUND GUIDED THORACENTESIS CLINICAL STATEMENT: [...] Sign Date: 04/16/2025 5:19:34 PM Ordering Provider: [facility] [id number] Note Date of Service 04/16/2025 Chief Complaint [...] nasal cannula presented as a transfer from [facility] for further evaluation of possible hydropneumothorax. Apparently, patient underwent pacemaker placement at [facility] last week , next day, patient was found to have pleural effusion and underwent thoracentesis and was admitted to rehab at [facility]. Patient found to have hypoxia and [...] with cardiothoracic surgery, he was transferred to [facility]. Patient admitted to hospital service, started on [...] reported. There evaluation, patient was sitting on chair. States he feels better after fluid removal yesterday. [...] fibrillation BPH (benign prostatic hyperplasia) CAD in [place] artery s/p CABG Cardiac pacemaker in situ [...] by weight. Plan for discharge back to group home facility hopefully next 24-48 hours if he [...] GLORIA DAVIS MD on 04/16/2025 01:33 PM [facility] [id number] Pulmonary Consult note Date of Service 04/16/2025 [...] The patient underwent a thoracentesis here at [facility] showing undetectable protein and a slightly elevated [...] fibrillation BPH (benign prostatic hyperplasia) CAD in [place] artery s/p CABG Cardiac pacemaker in situ [...] fibrillation BPH (benign prostatic hyperplasia) CAD in [place] artery Cardiac pacemaker in situ Chronic anemia [...] ABBI CARMEN MD on 04/16/2025 01:14 PM [facility] [id number] Note. MICRO - Microbiology PROCEDURE: Acid Fast Bacilli Culture w Stain if Ind [*1] SOURCE: Thoracentesis Fluid BODY SITE: COLLECTED DATE/TIME: 04/15/2025 08:52 EDT RECEIVED DATE/TIME: 04/15/2025 14:18 EDT START DATE/TIME: 04/15/2025 14:18 EDT FREE TEXT SOURCE: STAINS AFS [] Verified Date/Time/Personnel: 04/16/2025 12:33 EDT Acid Fast Smear from Concentrated Specimen: Negative Performing Locations *1: This test was performed at: [address], [address] [place], [place] [id number] Note. MICRO - Microbiology PROCEDURE: Fungal Culture with Stain if Ind [*1] SOURCE: Thoracentesis Fluid BODY SITE: COLLECTED DATE/TIME: 04/15/2025 08:52 EDT RECEIVED DATE/TIME: 04/15/2025 14:18 EDT START DATE/TIME: 04/15/2025 14:18 EDT FREE TEXT SOURCE: STAINS FUNSM [] Verified Date/Time/Personnel: 04/16/2025 12:32 EDT No fungal elements observed by calcofluor white stain. Performing Locations *1: This test was performed at: [address], [address] [place], [place] [id number] Nurse Progress note I was ambulating the [...] by [place] on 04/16/2025 10:23 AM [facility] [id number] Note. MICRO - Microbiology PROCEDURE: Culture Body [...] Locations *1: This test was performed at: [facility], [address] [place] [address], [id number] , [facility]08-27-2025 Note Date of Service 04/15/2025 Chief Complaint [...] nasal cannula presented as a transfer from [facility] for further evaluation of possible hydropneumothorax. Apparently, patient underwent pacemaker placement at [facility] last week , next day, patient was found to have pleural effusion and underwent thoracentesis and was admitted to rehab at [facility]. Patient found to have hypoxia and [...] with cardiothoracic surgery, he was transferred to [facility]. Patient admitted to hospital service, started on [...] fibrillation BPH (benign prostatic hyperplasia) CAD in [place] artery s/p CABG Cardiac pacemaker in situ [...] by weight. Plan for discharge back to group home facility once medically stable. No family at [...] GLORIA DAVIS MD on 04/15/2025 04:24 PM [facility] [id number] Note* Exam Date Time Procedure Performing Provider Status 04/15/25 11:36 AM XR Chest 1 View SHAHBAZ FOLEY MD; Aut h (Verified) [id number] ORIGINAL EXAMINATION: ONE XRAY VIEW OF THE [...] 04/15/2025 11:43:46 AM Ordering Provider: OLAMIDE GONZALEZ [facility] [id number] Note* Exam Date Time Procedure Performing Provider Status 04/15/25 11:35 AM US Thoracentesis Right NUNO GIBSON Smith; Auth (Verified) [id number] ORIGINAL PROCEDURE: ULTRASOUND GUIDED THORACENTESIS CLINICAL STATEMENT: [...] Sign Date: 04/16/2025 5:19:34 PM Ordering Provider: [facility]08-27-2025 Note US Procedure Record Summary Primary Physician: OLAMIDE GONZALEZ PA-C Finalized Date/Time: 04/15/25 11:32:18 Pt. Name: KADYPEDRO DIAZO.B./Sex: 1945 Male Med Rec #: [id number] Physician: DAVID STERLING MD Financial #: [id number] Pt. Type: I Room/Bed: [facility] Admit/Disch: 04/13/25 05:27:00 - Institution: Allergies identified in patient's electronic medical record at time of printing on 04/15/25 Entry 1 Substance ibuprofen Reaction Type Allergy Last Modified By: KHURRAM Merchant 04/13/25 06:04:52 Case Attendance- US Entry 1 Entry 2 Case Attendee OLAMIDE GONZALEZ Lauren M PA-C Role Performed Primary Surgeon Stope Miner Details Time In 04/15/25 11:08:00 04/15/25 11:08:00 [...] Data- US Entry 1 Case Information Room Rad Receiving Case Level IR Level 2 Wound Class None Specialty SN Radiology Procedure ASA Class None Diagnosis Preop Diagnosis pleural eff Postop Same As Preop Yes Postop Diagnosis pleural eff Last Modified By: Michaela Barnard 04/15/25 11:16:10 Medication Administration- US Entry 1 Medication 2% Lidocaine Route of Admin Local Dose 8 VORB Administered by Yes Administered by: OLAMIDE GONZALEZ Physician? PA-C Last Modified By: Michaela Barnard 04/15/25 11:15:23 [...] instrumentation, sponges, or sharps). Outcomes Met? Yes Wool Dyer OLAMIDE GONZALEZ Completing PA-C Procedure Plan Last Modified By: Michaela Barnard 04/15/25 11:16:00 Radiology Lines and Procedures- US Entry 1 Radiology Sedation Case Times Sedation Total Time 0 Radiology - Fluid/Drainage Fluid Amount mL: 1000 ml Fluid Description sheldon RAD - US [place], Guidewires, Cath.... Catheters OneStep Catheter 5 Fr [...] Signatures Signed By: Michaela Barnard 04/15/25 11:32 [facility] [id number] NoteBody Fluid Path ReviewNegative for malignant cells. (This evaluation is based on a screening review of one cytospin slide prepared primarily for differential cell count; if clinical index of suspicion is high, Cytology evaluation is recommended, as clinically indicated) *NA* (04/15/25 10:30 AM)AH Path Review Subsection 08-27-2025 Cardiothoracic surgery Consult note Date of Service 04/13/2025 Reason for Consultation Pneumothorax Referring Physician Dr. Sterling History of Present Illness This is a split/shared visit with Dr. Wagoner. Is an 80-year-old male with past medical history of PAD, atrial fibrillation status post permanent pacemaker insertion on 04/09/2025 on [facility], former smoker, BPH, chronic kidney disease stage III, hyperlipidemia, diabetes, peripheral neuropathy, chronic anemia, hypertension, CAD status post CABG (6 years ago), diastolic heart failure, and COPD (wears 3 L nasal cannula at home). He underwent insertion of a left sided permanent pacemaker on , 04/09/2025 at [facility]. The following day, he had a chest x-ray completed revealing a right pleural effusion and underwent a thoracentesis(amount of volume removed unknown). He was discharged to [facility] facility same day. While at rehab facility, he was noted to be hypoxic and tachycardic and a chest x-ray was completed showing aright pneumothorax. He was taken to [facility] emergency room where he was further evaluated [...] on 100% nonrebreather mask, and transferred to [facility] for further evaluation. Cardiothoracic surgery has been [...] Hydropneumothorax CT of the chest completed at [facility] on 04/12/2025 showing right loculated hydropneumothorax [...] Pneumonia CT of the chest completed at [facility] on 04/12/2025 showed apical and some [...] anemia 13. HTN (hypertension) 14. CAD in [place] artery s/p CABG 15. Diastolic heart failure 16. COPD with hypoxia 48 minutes of independent KATIA time spent obtaining past medical history from EMR, conducting [facility] to request CT of the chest imaging, completing vpdx-xc-ojlh visit with patient at bedside, obtaining physical exam, and dictating details of today's consultation. Problem List/Past Medical History Ongoing Atrial fibrillation BPH (benign prostatic hyperplasia) CAD in [place] artery Cardiac pacemaker in situ Chronic anemia [...] by COLLEEN DOE on 04/13/2025 03:08 PM [facility] [id number] Note* Exam Date Time Procedure Performing Provider Status 04/15/25 6:48 AM XR Chest 1 View LEVI MARCIAL MD; Auth (Verified) [id number] ORIGINAL EXAMINATION: ONE XRAY VIEW OF THE [...] Date: 04/15/2025 7:22:03 AM Ordering Provider: GLORIA [facility]08-26-2025 Note* Exam Date Time Procedure Performing Provider Status 04/14/25 9:03 PM Electrocardiogram - EKG - CV GOP BRAYAN JARAMILLO MD; Auth (Verified) ECG Final Report SINUS TACHYCARDIA VENTRICULAR PREMATURE COMPLEX RIGHT BUNDLE BRANCH BLOCK Electronic Signature: BRAYAN FRANCO MD 04/15/2025 22:51:41 [facility] CenterKvshbijb14-07-7314 Note Date of Service 04/14/2025 Chief Complaint [...] fibrillation BPH (benign prostatic hyperplasia) CAD in [place] artery s/p CABG Cardiac pacemaker in situ [...] as of now. Discussed with cardiothoracic surgery FORGER HELPER. Will give one-time dose of IV Lasix [...] for now. Plan for discharge back to group home facility once medically stable. Note was dictated [...] GLORIA DAVIS MD on 04/14/2025 04:44 PM [facility] [id number] Note. MICRO - Microbiology PROCEDURE: Legionella Urine [...] Locations *1: This test was performed at: [facility], [address] [place] [address], [facility]- , [facility]08-26-2025 Note. MICRO - Microbiology PROCEDURE: Streptococcus Pneumoniae [...] Locations *1: This test was performed at: [facility], [address] [place] [address], [facility] , [facility]08-26-2025 Note* Exam Date Time Procedure Performing Provider Status 04/14/25 6:55 AM XR Chest 1 View LEVI MARCIAL MD; Auth (Verified) [id number] ORIGINAL EXAMINATION: ONE XRAY VIEW OF THE [...] 04/14/2025 7:00:29 AM Ordering Provider: COLLEEN DOE [facility] [id number] History and physical note [facility] Hospitalist History and Physical Date of Admission: patient is being admitted on April 13, 2025 Chief complaint: pneumothorax History of present illness: History was taken from talking with the emergency room physician at [facility] as well as talking with the [...] the patient had a pacemaker placed at [facility]. On Sunday of this past week the patient was found to have pleural effusion and had a thoracentesis. The patient was admitted to rehab at [facility]. Yesterday the patient had episodes of [...] CT chest without contrast showed right loculated [place] pneumothorax of estimated 15% of the right thoracic volume occupied by air. Patches of dense consolidating right pneumonia. Sizable peripheral blebs and honeycombing in the left mid and base. Prior to transfer they did discuss the case with cardiothoracic surgery manager personal and the patient wasgiven vancomycin and Zosyn. [...] Vitals Signs(Last 24 hrs)__Last Charted Minimum Maximum TCI180(APR 13 05:28)135(APR 13 05:28)135(APR 13:28) DBP78(APR 13:28)78(APR 13:28)78(APR 13:28) Physical examination: HEENT: No Pallor, No Icterus Cardiac: tachycardia, No murmur Lungs: diffuse crackles in respiratory stress Abdomen: Soft Non tender Musculoskeletal: No joint pains or swelling Extremities: No edema, good pulses Neurological: Alert, no deficits Skin: No rash, no nodules Labs: as mentioned in the HPI. Assessment and plan: Patient presents from [facility] on April 13, 2025 due to [...] DAVID STERLING MD on 04/13/2025 05:49 AM [facility] [id number] Respiratory therapy Hospital Progress note Respiratory Therapy [...] : Alert, oriented and cooperative Summer Hankins - 04/13/2025 16:05 EDT Chest X-Ray : Infiltrates or atelectasis in one lobe Summer Hankins - 04/13/2025 15:22 EDT Digitally Signed by Summer Hankins on 04/13/2025 04:09 PM [facility] CenterNiikkmku21-56-1683 Cardiothoracic surgery Consult note Date of Service [...] sided permanent pacemaker on , 04/09/2025 at [facility]. The following day, he had a chest x-ray completed revealing a right pleural effusion and underwent a thoracentesis(amount of volume removed unknown). He was discharged to [facility] facility same day. While at rehab facility, he was noted to be hypoxic and tachycardic and a chest x-ray was completed showing aright pneumothorax. He was taken to [facility] emergency room where he was further evaluated [...] on 100% nonrebreather mask, and transferred to [facility] for further evaluation. Cardiothoracic surgery has been [...] Hydropneumothorax CT of the chest completed at [facility] on 04/12/2025 showing right loculated hydropneumothorax [...] Pneumonia CT of the chest completed at [facility] on 04/12/2025 showed apical and some [...] anemia 13. HTN (hypertension) 14. CAD in [place] artery s/p CABG 15. Diastolic heart failure 16. COPD with hypoxia 48 minutes of independent KATIA time spent obtaining past medical history from EMR, conducting [facility] to request CT of the chest imaging, completing nhbg-yq-jrfn visit with patient at bedside, obtaining physical exam, and dictating details of today's consultation. Problem List/Past Medical History Ongoing Atrial fibrillation BPH (benign prostatic hyperplasia) CAD in [place] artery Cardiac pacemaker in situ Chronic anemia [...] by COLLEEN DOE on 04/13/2025 03:08 PM [facility] CenterJbgwmkev79-73-2116 Note* Exam Date Time Procedure Performing Provider Status 04/13/25 2:42 PM XR Chest 1 View MÓNICA ZALDIVAR DO; Vasquez [facility] (Verified) [id number] ORIGINAL EXAMINATION: ONE XRAY VIEW OF THE [...] 04/13/2025 2:58:50 PM Ordering Provider: COLLEEN DOE [facility] [id number] Evaluation + Plan noteExtracted from: Title:Clinical Document Author:DAVID STERLING MD Date:04/13/25 [facility] Medicine Hospitalist History and Physical Date of Admission: patient is being admitted on April 13, 2025 Chief complaint: pneumothorax History of present illness: History was taken from talking with the emergency room physician at [facility] as well as talking with the [...] the patient had a pacemaker placed at [facility]. On Sunday of this past week the patient was found to have pleural effusion and had a thoracentesis. The patient was admitted to rehab at [facility]. Yesterday the patient had episodes of [...] CT chest without contrast showed right loculated [place] pneumothorax of estimated 15% of the right thoracic volume occupied by air. Patches of dense consolidating right pneumonia. Sizable peripheral blebs and honeycombing in the left mid and base. Prior to transfer they did discuss the case with cardiothoracic surgery manager personal and the patient was given vancomycin and [...] Vitals Signs(Last 24 hrs)__Last Charted Minimum Maximum OYR384(APR 13:)135(APR 13:)135(APR 13:) DBP78(APR 13:)78(APR 13:)78(APR 13:) Physical examination: HEENT: No Pallor, No Icterus Cardiac: tachycardia, No murmur Lungs: diffuse crackles in respiratory stress Abdomen: Soft Non tender Musculoskeletal: No joint pains or swelling Extremities: No edema, good pulses Neurological: Alert, no deficits Skin: No rash, no nodules Labs: as mentioned in the HPI. Assessment and plan: Patient presents from [facility] on April 13, 2025 due to [...] was seen and examined again by silvana mleendez later today. Denies any change in his [...] care with patient and family at bedside. [facility] 08-25-2025 Note Reason for Consultation Admission From: [...] Other: Medihoney/adaptic/foam to right knee. Betadine to pmomc3jj, and 4th toes. Eucerin cream to BLE. Education Individuals Taught: Patient Learning Readiness: Willing to learn Barriers to Learning: Acuity of illness Teaching Method: Explanation Digitally Signed by Carol Galvin RN on 04/13/2025 01:26 PM [facility] [id number] [facility]08-25-2025 History and physical note [facility] Hospitalist History and Physical Date of Admission: patient is being admitted on April 13, 2025 Chief complaint: pneumothorax History of present illness: History was taken from talking with the emergency room physician at [facility] as well as talking with the [...] the patient had a pacemaker placed at [facility]. On Sunday of this past week the patient was found to have pleural effusion and had a thoracentesis. The patient was admitted to rehab at [facility]. Yesterday the patient had episodes of [...] CT chest without contrast showed right loculated [place] pneumothorax of estimated 15% of the right thoracic volume occupied by air. Patches of dense consolidating right pneumonia. Sizable peripheral blebs and honeycombing in the left mid and base. Prior to transfer they did discuss the case with cardiothoracic surgery manager personal and the patient wasgiven vancomycin and Zosyn. [...] Vitals Signs(Last 24 hrs)__Last Charted Minimum Maximum DME994(APR 13 05:28)135(APR 13:)135(APR 13:) DBP78(APR 13:)78(APR 13:)78(APR 13:) Physical examination: HEENT: No Pallor, No Icterus Cardiac: tachycardia, No murmur Lungs: diffuse crackles in respiratory stress Abdomen: Soft Non tender Musculoskeletal: No joint pains or swelling Extremities: No edema, good pulses Neurological: Alert, no deficits Skin: No rash, no nodules Labs: as mentioned in the HPI. Assessment and plan: Patient presents from [facility] on April 13, 2025 due to [...] DAVID STERLING MD on 04/13/2025 05:49 AM [facility] CenterUqshfndp01-39-1271 History and physical note [facility] Hospitalist History and Physical Date of Admission: patient is being admitted on April 13, 2025 Chief complaint: pneumothorax History of present illness: History was taken from talking with the emergency room physician at [facility] as well as talking with the [...] the patient had a pacemaker placed at [facility]. On Sunday of this past week the patient was found to have pleural effusion and had a thoracentesis. The patient was admitted to rehab at [facility]. Yesterday the patient had episodes of [...] CT chest without contrast showed right loculated [place] pneumothorax of estimated 15% of the right thoracic volume occupied by air. Patches of dense consolidating right pneumonia. Sizable peripheral blebs and honeycombing in the left mid and base. Prior to transfer they did discuss the case with cardiothoracic surgery manager personal and the patient wasgiven vancomycin and Zosyn. [...] Vitals Signs(Last 24 hrs)__Last Charted Minimum Maximum LHZ698(APR 13:)135(APR 13:)135(APR 13:) DBP78(APR 13:)78(APR 13:)78(APR 13:) Physical examination: HEENT: No Pallor, No Icterus Cardiac: tachycardia, No murmur Lungs: diffuse crackles in respiratory stress Abdomen: Soft Non tender Musculoskeletal: No joint pains or swelling Extremities: No edema, good pulses Neurological: Alert, no deficits Skin: No rash, no nodules Labs: as mentioned in the HPI. Assessment and plan: Patient presents from [facility] on April 13, 2025 due to [...] DAVID STERLING MD on 04/13/2025 05:49 AM [facility] [id number] Discharge summary Author Daniel Brownlee [facility] Note Date/Time April 13, 2025 12 :09am [facility] Medical Records Department [address] [place] [address] Emergency Department Summary 04/12/25 MR#: [id number] Acct: [id number] Name: PEDRO HILLMAN Rep #:[id number] : 1945 80 From: Daniel Brownlee DO [...] complaints himself at this point in time. [facility] Medical History Presence of cardiac pacemaker Peripheral arterial disease Other persistent atrial fibrillation New onset atrial flutter COVID Wears hearing aid in both ears Former smoker Coronary artery disease Peripheral vascular occlusive disease BPH (benign prostatic hyperplasia) Chronic kidney disease, stage 3 Atherosclerosis of coronary artery of [place] heart without angina pectoris Hyperlipidemia Lower extremity [...] s 04/08/25 Unknown Rx OXYGEN - Supplemental ([facility] 04/09/25 Unknown History INFORMATIONAL USE ONLY) [...] following commands knew that he was at [facility] the year is 2024 Skin: Warm, [...] with a rate of 111 bpm with MA interval of 86. Patient's proBNP elevated 7022. [...] transfer giventhe complex pneumothorax. Discussed case with [facility] physician Dr. Sterling who accept patient for [...] 92.5 H Lymph % (Auto) 2.5 L Evans % (Auto) 4.2 Eos % (Auto) 0.0 [...] left mid zone and base. Reading [facility] Discharge Plan Triage Chief Complaint: Shortness [...] Qty: 60 0RF (DME) OXYGEN - Supplemental ([facility] INFORMATIONAL USE ONLY) Gas See Rx Instructions .ROUTE Patient Comments: 2 lpm at rest, 3 lpm on exertion, 2 lpm at HS DME company: [employer] CM Rx Instructions: As directed metoprolol succinate 25 mg tablet extended release 24 hr 12.5 mg PO BID Qty: 90 3RF Primary Care Provider: Tonio Fajardo Referrals: Tonio Fajardo DO [Primary Care Provider] - Print Language: Sudanese Disposition Disposition: DC/Tx to Another Type of HCF What to do if you have Problems For any increased pain, shortness of breath, bleeding, nausea or vomiting, chestpain, or any unexpected problems, contact your Primary Care Provider. Call [facility] ([phone]) or report to the closest Emergency Room. Call 911 if necessary. 04/13/25 0009 <Electronically signed by Daniel Brownlee DO> Cosigner Signature (if applicable): CC: Dr. Tonio Fajardo DO ~ Signed [facility] Work Phone: 1(788) 840-477808-24-2025 Radiology Diagnostic study [facility]08-24-2025 Radiology Diagnostic study [facility]08-22-2025 History and physical note Author Valdez Olivo [facility] Note Date/Time April 10, 2025 8: 47pm [facility] Medical Records Department [address] [place] [address] History & Physical Exam 04/10/252025 MR#: [id number] Acct: [id number] Name: PEDRO HILLMAN Rep #:[id number] : 1945 80 From: Valdez Olivo MD PCP: Dr. Tonio Fajardo DO Status:ADM IN Location: [facility] TCU02-1 HPI - General General Date of Admission: 04/10/25 Date of Service: 04/10/25 Chief Complaint: Here for rehabilitation. HPI Narrative PEDRO HILLMAN, is a 80 Male who presents with followin04/05/2025 [facility] ED Hypotension. Worsening productive cough, copd, [...] given. Insulin/glucose for hyperkalemia 5.8. 04/05/2025 Admit [facility]. Lasix 40mg iv bid, Magnesium, albumin [...] strengthening, prior to discharge home alone. [facility] Medical History (Updated 04/10/25 @ 20:[address] Valdez Olivo MD) Presence of cardiac pacemaker Peripheral arterial disease Other persistent atrial fibrillation New onset atrial flutter COVID Wears hearing aid in both ears Former smoker Coronary artery disease Peripheral vascular occlusive disease BPH (benign prostatic hyperplasia) Chronic kidney disease, stage 3 Atherosclerosis of coronary artery of [place] heart without angina pectoris Hyperlipidemia Lower extremity [...] s 04/08/25 Unknown Rx OXYGEN - Supplemental ([facility] 04/09/25 Unknown History INFORMATIONAL USE ONLY) [...] Fajardo DO; Dr. Valdez Olivo MD~ Signed [facility] Work Phone: 1(848) 521-758608-22-2025 [facility]08-22-2025 Discharge summary Author Nicola Roman [facility] Note Date/Time April 10, 2025 4: 10pm [facility] Medical Records Department [address] [place] [address] Transfer to [facility] Care MR#: [id number] Acct: [id number] Name: PEDRO HILLMAN Rep #:[id number] : 1945 80 From: Nicola Roman MD PCP: Dr. Tonio Fajardo, DO Status:ADM IN Certification of patient admission REQUIRED AT TIME OF ADMISSION. I CERTIFY THAT POST-HOSPITAL ECF SERVICES ARE REQUIRED TO BE GIVEN ON AN IN-PATIENT BASIS BECAUSE OF THE ABOVE NAMED PATIENT'S NEED FOR HALFWAY CARE ON A CONTINUING BASIS FOR THE CONDITION(S) FOR WHICH HE/SHE WAS RECEIVING IN-PATIENT HOSPITAL SERVICES PRIOR TO HIS/HER TRANSFER TO THE F. 04/10/25 1610<Electronically signed by Nicola Roman MD> [...] with radiation therapy currently followed by [facility] oncology and will start 8. Chronic [...] 2RF No Action (DME) OXYGEN - Supplemental ([facility] INFORMATIONAL USE ONLY) Gas See Rx [...] Fajardo DO; Dr. Deric Lantigua MD ~ [facility] Work Phone: 1(594) 549-586508-22-2025 Discharge summary Author Nicola Roman [facility] Note Date/Time April 10, 2025 4: 23pm [facility] Medical Records Department [address] [place] [address] Discharge Summary 04/10/251609 MR#: [id number] Acct: [id number] Name: PEDRO HILLMAN Rep #:[id number] : 1945 80 From: Nicola Roman MD PCP: Dr. Tonio Fajardo DO Status:ADM IN Location: [place] [id number]- 1 Providers Date of Admission: 04/05/25 Date of Discharge: 04/10/25 Primary Care Physician: Dr. Tonio Fajardo DO Consultations 04/05/25 20:36 Consult: Nephrology Routine Consulting Provider: Davon Saravia Reason for Consult: CKD; stage IV with Hyperkalemia and AE CHF. EMERGENT Consult: No Notified: Yes Date Notified: 04/06/25 Time Notified: 06:58 Method of Notification: Answering Service 04/06/25 07:14 Consult: Onc/Wound/irrigation service technician Routine Comment: Reason for Consult:: burn R [...] with radiation therapy currently followed by [facility] oncology and will start 8. Chronic [...] BID #10 tabs 04/08/25 OXYGEN - Supplemental ([facility] INFORMATIONAL USE ONLY) 04/09/25 Physical Exam [...] (Auto) 91.6 H, Lymph % (Auto) 1.9L, Evans % (Auto) 5.5, Eos % (Auto) 0.0, [...] pleural effusions consistent with CHF. Reading Location: [facility] Chest CT 04/10/25 07:49 IMPRESSION: Coronary artery calcification (CAC) is is present Moderate right pleural effusion with compressive atelectasis in the right lower lobe as well as airspace disease in the right upper lobe with volume loss. Small left pleural effusion with left basilar atelectasis. Findings suggestive of CHF. Reading Location: [facility] Thoracentesis Ultrasound 04/10/25 09:12 IMPRESSION: Successful diagnostic and therapeutic ultrasound-guided right thoracentesis. Laboratory results pending. Reading Location: [place] [address] D/C Instructions Call your doctor if you [...] 2RF No Action (DME) OXYGEN - Supplemental ([facility] IN[facility] USE ONLY) Gas See Rx [...] Self Care Charges/Coding Visit Charges Inpatient E&M: 22424 Disch Hosp >30min 04/10/25 1623 <Electronically signed by Nicola Roman MD> Cosigner Signature (if applicable): CC: Dr. Nicola Roman MD; Dr. Tonio Fajardo, ~ Signed [facility] Work Phone: 1(104) 380-176408-22-2025 [facility]08-22-2025 Radiology Diagnostic study [facility]08-22-2025 Hospital Discharge instructionsAdditional Instructions Date of Discharge: 04/10/25[facility] Work Phone: 1(955) 362-833508-22-2025 Progress note Author Nicola Roman [facility] Note Date/Time April 10, 2025 9: 18am [facility] Medical Records Department [address] [place] [address] Progress Note - Hospitalist 04/10/25 0750 MR#: [id number] Acct: [id number] Name: PEDRO HILLMAN Rep #:[id number] : 1945 80 From: Nicola Roman MD PCP: Dr. Tonio Fajardo DO Status:ADM IN Location: [place] [address] Reason for Visit Chief Complaint: SOB, Cough [...] (Auto) 91.6 H, Lymph % (Auto) 1.9L, Evans % (Auto) 5.5, Eos % (Auto) 0.0, [...] pleural effusions consistent with CHF. Reading Location: [facility] Physical Exam Narrative S GENERAL: dyspneic at [...] with radiation therapy currently followed by [facility] oncology and will start 8. Chronic [...] 52 Minutes Charges/Coding Visit Charges Inpatient E&M: 34377 Subs Hosp 08/22/25 0918 <Electronically signed by Nicola Roman MD> Cosigner Signature (if applicable): CC: ~ Signed [facility] Work Phone: 1(445) 184-474908-22-2025 Radiology Diagnostic study [facility]08-21-2025 Radiology Diagnostic study [facility]08-21-2025 Procedure [facility]08-21-2025 Progress note Author Nicola Roman [facility] Note Date/Time April 09, 2025 11 :31am [facility] Medical Records Department [address] [place] [address] Progress Note - Hospitalist 04/09/25 1125 MR#: [id number] Acct: [id number] Name: PEDRO HILLMAN Rep #:[id number] : 1945 80 From: Nicola Roman MD PCP: Dr. Tonio Fajardo, DO Status:ADM IN Location: [place] [address] Reason for Visit Chief Complaint: SOB, Cough [...] (Auto) 91.8 H, Lymph % (Auto) 2.8L, Evans % (Auto) 4.7, Eos % (Auto) 0.0, [...] treated with radiation therapy currently followed by [facility] oncology and will start 8. Chronic persistent [...] 50 Minutes Charges/Coding Visit Charges Inpatient E&M: 66148 Subs Hosp L3 04/09/25 1131 <Electronically signed by Nicola Roman MD> Cosigner Signature (if applicable): CC: ~ Signed [facility] Work Phone: 1(348) 922-461208-20-2025 Consult note Author Issa Looney [facility] Note Date/Time April 08, 2025 7: 12pm [facility] Medical Records Department [address] [place] [address] Consultation - Cardiology 04/08/25 1906 MR#: [id number] Acct: [id number] Name: PEDRO HILLMAN Rep #:[id number] : 1945 80 From: Issa Looney MD PCP: Dr. Tonio Fajardo, DO Status:ADM IN Location: [place] [id number]- [id number] Assessment & Plan Assessment/Plan (1) Chronic [...] disease: QUALIFIERS: Coronary Disease-Associated Artery/Lesion type: nativeartery [place] vs. transplanted heart: chitim[place] heart Associated angina: without angina Qualified Code(s): I25.10 - Atherosclerotic heart disease of [place] coronary artery without angina pectoris PLAN: He [...] documented pauses over 8 seconds present. [facility] Medical History Peripheral arterial disease Other persistent atrial fibrillation New onset atrial flutter COVID Wears hearing aid in both ears Former smoker Coronary artery disease Peripheral vascular occlusive disease BPH (benign prostatic hyperplasia) Chronic kidney disease, stage 3 Atherosclerosis of coronary artery of [place] heart without angina pectoris Hyperlipidemia Lower extremity [...] (Auto) 91.4 H, Lymph % (Auto) 3.5L, Evans % (Auto) 4.5, Eos % (Auto) 0.0, [...] 91.4 H, Lymph % (Auto) 3.5 L, Evans % (Auto) 4.5, Eos % (Auto) 0.0, [...] Dr. Tonio Fajardo, DO~ Signed [facility] Work Phone: 1(691) 855-666608-20-2025 Consult note Author Madeline Sarabia [facility] Note Date/Time April 08, 2025 6: 51pm [facility] Medical Records Department [address] [place] [address] Consultation - Nephrology 04/06/25 1153 MR#: [id number] Acct: [id number] Name: PEDRO HILLMAN Rep #:[id number] : 1945 80 From: Madeline shultz FORGER HELPER-C PCP: Dr. Tonio Fajardo, DO Status:ADM IN Location: [place] [id number]- 1 Assessment & Plan Assessment/Plan (1) DARIUSZ [...] kidney from prior ATN after CABG at [facility] March2013 (patient required hemodialysis for short period [...] He he was last seen in our [place] office in April 2021. 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 Baseline creatinine April 2021 was around 1.5 to 1.9 mg/dL. Yesterday in the emergency room creatinine 2.57, today his creatinine is 2.52 mg/dL. Patient denies any recent nausea, vomiting or diarrhea. He does state since feeling unwell appetite has been poor. No NSAIDs. Denies any hematuria, dysuria, frequency, nocturia. [facility] Medical History Peripheral arterial disease Other persistent atrial fibrillation New onset atrial flutter COVID Wears hearing aid in both ears Former smoker Coronary artery disease Peripheral vascular occlusive disease BPH (benign prostatic hyperplasia) Chronic kidney disease, stage 3 Atherosclerosis of coronary artery of [place] heart without angina pectoris Hyperlipidemia Lower extremity [...] (Auto) 79.7 H, Lymph % (Auto) 7.3L, Evans % (Auto) 10.7 H, Eos % (Auto) [...] Clarity Clear, Urine pH 5.0, Ur Specific [place] 1.015, Urine Protein 100 H, Urine Glucose [...] (Auto) 81.9 H, Lymph % (Auto) 6.4L, Evans % (Auto) 10.1 H, Eos % (Auto) [...] process cannot be reliably excluded. Reading Location: [id number] Chest X-Ray 04/06/25 04:13 IMPRESSION: Unchanged bilateral pleural effusions. Unchanged passive atelectatic airspace disease of the lower lobes. Unremarkable median sternotomy wires. Minimal decrease in pulmonary congestion/infiltrates. Enlarged cardiac silhouette. Reading Location: [place] [address] 04/06/25 1226 <Electronically signed by Madeline ZHONG> Cosigner Signature (if applicable): 04/08/25 1851 <Electronically signed by Davon Saravia MD> CC: Dr. Tonio Fajardo, DO~ Signed [facility] Work Phone: 1([phone]) 222-876908-20-2025 Progress note Author Madeline Sarabia [facility] Note Date/Time April 08, 2025 6: 51pm [facility] Medical Records Department [address] [place] [address] Progress Note - Nephrology 04/07/25 1046 MR#: [id number] Acct: [id number] Name: PEDRO HILLMAN Rep #:[id number] : 1945 80 From: Madeline ZHONG PCP: Dr. Tonio Fajardo, DO Status:ADM IN Location: [place] [address] Subjective Subjective Sitting in chair. No overnight [...] 92.8 H, Lymph % (Auto) 3.1 L, Evans % (Auto) 2.5, Eos % (Auto) 0.0, [...] 12:19 IMPRESSION: NORMAL RENAL ULTRASOUND. Reading Location: [facility] Physical Exam Narrative Alert and [...] kidney from prior ATN after CABG at [facility] March 2013 (patient required hemodialysis for short [...] L yesterday. No acute indication for [employer]. Renal ultrasound, normal ultrasound, no hydronephrosis. Urine [...] for hospital follow-up after hospital discharge in [place] office. Assessment and plan reviewed with Dr. Saravia. 04/07/25 1103 <Electronically signed by Madeline ZHONG> Cosigner Signature (if applicable): 04/08/25 5411 <Electronically signed by Davon Saravia MD> CC: ~ Signed [facility] Work Phone: 1(935) 248-439908-20-2025 Progress note Author Nicola Roman [facility] Note Date/Time April 08, 2025 3: 41pm [facility] Medical Records Department [address] [place] [address] Progress Note - Hospitalist 04/08/25 0757 MR#: [id number] Acct: [id number] Name: PEDRO HILLMAN Rep #:[id number] : 1945 80 From: Nicola Roman MD PCP: Dr. Tonio Fajardo, DO Status:ADM IN Location: [place] [id number]- 1 Reason for Visit Chief Complaint: SOB, [...] (Auto) 91.4 H, Lymph % (Auto) 3.5L, Evans % (Auto) 4.5, Eos % (Auto) 0.0, [...] with radiation therapy currently followed by [facility] oncology and will start 7. Chronic [...] 35 Minutes Charges/Coding Visit Charges Inpatient E&M: 71981 Subs Hosp L2 04/08/25 1113 <Electronically signed [...] (if applicable): cc: ~* Signed [facility] Work Phone: 1(662) 810-587608-20-2025 Discharge summary Author Nicola Roman [facility] Note Date/Time April 08, 2025 1: 45pm [facility] Medical Records Department [address] [place] [address] Discharge Summary 04/08/25 1114 MR#: [id number] Acct: [id number] Name: PEDRO HILLMAN Rep #:[id number] : 1945 80 From: Nicola Roman MD PCP: Dr. Tonio Fajardo, DO Status:ADM IN Location: [facility] [id number]- 1 Providers Date of Admission: 04/05/25 Date of Discharge: 04/08/25 Primary Care Physician: Dr. Tonio Fajardo, DO Consultations 04/05/25 20:36 Consult: Nephrology Routine Consulting Provider: Davon Saravia Reason for Consult: CKD; stage IV with Hyperkalemia and AE CHF. EMERGENT Consult: No MD Notified: Yes Date Notified: 04/06/25 Time Notified: 06:58 Method of Notification: Answering Service 04/06/25 07:14 Consult: Onc/Wound/irrigation service technician Routine Comment: Reason for Consult:: burn R [...] with radiation therapy currently followed by [facility] oncology and will start 7. Chronic [...] (Auto) 91.4 H, Lymph % (Auto) 3.5L, Evans % (Auto) 4.5, Eos % (Auto) 0.0, [...] Self Care Charges/Coding Visit Charges Inpatient E&M: 44784 Disch Hosp >30min 04/08/25 1345 <Electronically signed by Nicola Roman MD> Cosigner Signature (if applicable): CC: Dr. Nicola Roman MD; Dr. Tonio Fajardo DO~ Signed [facility] Work Phone: 1(580) 762-935508-20-2025 [facility]08-19-2025 Progress note Author Nicola Roman [facility] Note Date/Time April 07, 2025 11 :26am [facility] Medical Records Department [address] [place] [address] Progress Note - Hospitalist 04/07/25 1113 MR#: [id number] Acct: [id number] Name: PEDRO HILLMAN Rep #:[id number] : 1945 80 From: Nicola Roman MD PCP: Dr. Tonio Fajardo, DO Status:ADM IN Location: [place] [address] Reason for Visit Chief Complaint: SOB, Cough [...] 92.8 H, Lymph % (Auto) 3.1 L, Evans % (Auto) 2.5, Eos % (Auto) 0.0, [...] 12:19 IMPRESSION: NORMAL RENAL ULTRASOUND. Reading Location: [facility] Physical Exam Narrative S GENERAL: [...] treated with radiation therapy currently followed by [facility] and will start 7. Chronic persistent A-fib [...] 52 Minutes Charges/Coding Visit Charges Inpatient E&M: 64019 Subs Hosp L3 04/07/25 1126 <Electronically signed by Nicola Roman MD> Cosigner Signature (if applicable): CC: ~ Signed [facility] Work Phone: 1(360) 789-213308-18-2025 Progress note Author Deric Lantigua [facility] Note Date/Time April 06, 2025 4: 53pm [facility] Medical Records Department [address] [place] [address] Progress Note - Hospitalist 04/06/25 0837 MR#: [id number] Acct: [id number] Name: PEDRO HILLMAN Rep #:[id number] : 1945 80 From: Deric Smith PCP: Dr. Tonio Fajardo, DO Status:ADM IN Location: [place] [address] Reason for Visit Chief Complaint: SOB, Cough [...] (Auto) 79.7 H, Lymph % (Auto) 7.3L, Evans % (Auto) 10.7 H, Eos % (Auto) [...] Clarity Clear, Urine pH 5.0, Ur Specific [place] 1.015, Urine Protein 100 H, Urine Glucose [...] (Auto) 81.9 H, Lymph % (Auto) 6.4L, Evans % (Auto) 10.1 H, Eos % (Auto) [...] process cannot be reliably excluded. Reading Location: [facility] Chest X-Ray 04/06/25 04:13 IMPRESSION: Unchanged bilateral pleural effusions. Unchanged passive atelectatic airspace disease of the lower lobes. Unremarkable median sternotomy wires. Minimal decrease in pulmonary congestion/infiltrates. Enlarged cardiac silhouette. Reading Location: [place] [address] Physical Exam Narrative Seen and examined Patient [...] oxygen requirement with increasing productive cough. Patient's zhknefzv-pi-hkj increased O2 to 4 L. Noleg swelling. 1. Acute on chronic HFpEF: Patient is being admitted in the PCU. proBNP 4003. Chest x-ray initially shows moderate right and small left pleural effusion and atelectasis and pulmonary edema. Serial troponins 64, 62 and 60 flat and indeterminate and not indicative of ACS.2D echo 03/05 reported EF 55%, PASP 42 mmHg with moderate TR, moderate MA and mild PI. TSH normal Plan: Patient is started on furosemide 40 mg IV twice daily. Heart failure coremeasures including intake and output, fluid restriction less than 1500 mL, dailyweight monitoring, kidney and electrolytes monitoring. 2. Persistent trial flutter/atrial fib: Currently patient in sinus rhythm. On hospital monitor sinus rhythm 105 bpm. During previous [...] Mucinex, incentive spirometry and Pep. ABG 7.3 //71/34 on 6 L of oxygen. Bicarb in [...] (Auto) 79.7 H, Lymph % (Auto) 7.3L, Evans % (Auto) 10.7 H, Eos % (Auto) [...] Clarity Clear, Urine pH 5.0, Ur Specific [place] 1.015, Urine Protein 100 H, Urine Glucose [...] (Auto) 81.9 H, Lymph % (Auto) 6.4L, Evans % (Auto) 10.1 H, Eos % (Auto) [...] 140 H Charges/Coding Visit Charges Inpatient E&M: 44762 Subs Hosp L3 04/06/25 1657 <Electronically signed by Deric Lantigua MD> Cosigner Signature (if applicable): CC: ~ Signed [facility] Work Phone: 1(791) 108-706108-18-2025 Radiology Diagnostic study [facility]08-18-2025 History and physical note Author Nicola Madison [facility] Note Date/Time April 06, 2025 6: 23am [facility] Medical Records Department [address] [place] [address] H&P Exam - Hospitalist 04/05/251917 MR#: [id number] Acct: [id number] Name: PEDRO HILLMAN Nora Rep #:[id number] : 1945 80 From: Nicola Levy DO PCP: Dr. Tonio Fajardo, DO Status:ADM IN Location: [place] [id number] - General General Date of Admission: 04/05/25 [...] patient still FULL CODE who presents to [facility] ER complaining of shortness of breath, [...] expected to extend beyond 2 midnights. [facility] Medical History Peripheral arterial disease Other persistent atrial fibrillation New onset atrial flutter COVID Wears hearing aid in both ears Former smoker Coronary artery disease Peripheral vascular occlusive disease BPH (benign prostatic hyperplasia) Chronic kidney disease, stage 3 Atherosclerosis of coronary artery of [place] heart without angina pectoris Hyperlipidemia Lower extremity [...] (Auto) 79.7 H, Lymph % (Auto) 7.3L, Evans % (Auto) 10.7 H, Eos % (Auto) [...] process cannot be reliably excluded. Reading Location: [facility] Assessment & Plan Assessment/Plan (1) Acute [...] 75 minutes. Charges/Coding Visit Charges Inpatient E&M: 55887 Init Hosp L3 04/06/25 0623 <Electronically signed by Nicola Lindsey DO> Cosigner Signature (if applicable): CC: Dr. Nicola Lindsey DO; Dr. Tonio Fajardo DO~ Signed [facility] Work Phone: 1(257) 283-188408-18-2025 Radiology Diagnostic study [facility]08-18-2025 Discharge summary Author Ld Hayes [facility] Note Date/Time April 06, 2025 12 :36am [facility] Medical Records Department [address] [place] [address] Emergency Department Summary 04/05/25 MR#: [id number] Acct: [id number] Name: PEDRO HILLMAN Rep #:[id number] : 1945 80 From: Ld Quintero PCP: Dr. Tonio Fajardo DO Status:ADM IN Location: [place] [address] HPI History of Present Illness Chief Complaint: Hypotension Informant: patient and family Narrative Narrative: Presents by EMS from home daughter in law present. Increasing productive cough. Chronic oxygenation of 3 L for COPD history remote history of lung cancer. Pzampakj-gu-wpq reports that increase his oxygen to 4 [...] CKD history. He is followed by the [place] [facility]. Reports he was admitted 3 weeks ago approximately had his metoprolol held and placed on diltiazem. Prior similar symptoms: Yes PFSH [facility] Medical History Peripheral arterial disease Other persistent atrial fibrillation New onset atrial flutter COVID Wears hearing aid in both ears Former smoker Coronary artery disease Peripheral vascular occlusive disease BPH (benign prostatic hyperplasia) Chronic kidney disease, stage 3 Atherosclerosis of coronary artery of [place] heart without angina pectoris Hyperlipidemia Lower extremity [...] clinician: Hospitalist This note was generated with Rennovia dictation software. It may contain incorrectwords, spelling, [...] 79.7 H Lymph % (Auto) 7.3 L Evans % (Auto) 10.7 H Eos % (Auto) [...] process cannot be reliably excluded. Reading Location: [id number] Discharge Plan Dx/Rx/DC Orders Clinical Impression: CHF exacerbation, Chronic kidney disease, stage 3, Atrial flutter, Chronic anticoagulation, Hyperkalemia Disposition Disposition: Acute Care [facility] Discharge Date/Time: 04/05/25 20:38 What to do if you have Problems For any increased pain, shortness of breath, bleeding, nausea or vomiting, chestpain, or any unexpected problems, contact your Primary Care Provider. Call [facility] ([phone]) or report to the closest Emergency Room. Call 911 if necessary. 04/06/25 0036 <Electronically signed by Ld Quintero> Cosigner Signature (if applicable): CC: Dr. Tonio Fajardo DO ~ Signed [facility] Work Phone: 1(828) 922-690708-17-2025 Radiology Diagnostic study [facility]07-27-2025 Discharge summary [facility] Medical Records Department [address] [place] [address] Emergency Department Summary 03/15/25 MR#: [id number] Acct: [id number] Name: PEDRO HILLMAN Rep #:[id number] : 1945 80 From: Alex Matias MD [...] similar symptoms: Yes Recent Illness/Hospitalization: Yes (CHF) [facility] Medical History Other persistent atrial fibrillation New onset atrial flutter COVID Wears hearing aid in both ears Former smoker Coronary artery disease Peripheral vascular occlusive disease BPH (benign prostatic hyperplasia) Chronic kidney disease, stage 3 Atherosclerosis of coronary artery of [place] heart without angina pectoris Hyperlipidemia Lower extremity [...] 4 doses of apixaban, Eliquis Print Language: Sudanese Disposition Disposition: Home, Self Care What to do if you have Problems For any increased pain, shortness of breath, bleeding, nausea or vomiting, chestpain, or any unexpected problems, contact your Primary Care Provider. Call [facility] ([phone]) or report tothe closest Emergency Room. Call 911 if necessary. 03/15/25 1822 Cosigner Signature (if applicable): CC: Dr. Tonio Fajardo DO ~ Signed [facility]07-27-2025 Discharge summary Author Alex Matias [facility] Note Date/Time March 15, 2025 6:22 pm [facility] Medical Records Department [address] [place] [address] Emergency Department Summary 03/15/25 MR#: [id number] Acct: [id number] Name: PEDRO HILLMAN Rep #:[id number] : 1945 80 From: Alex Matias MD [...] similar symptoms: Yes Recent Illness[facility] Medical History Other persistent atrial fibrillation New onset atrial flutter COVID Wears hearing aid in both ears Former smoker Coronary artery disease Peripheral vascular occlusive disease BPH (benign prostatic hyperplasia) Chronic kidney disease, stage 3 Atherosclerosis of coronary artery of [place] heart without angina pectoris Hyperlipidemia Lower extremity [...] 4 doses of apixaban, Eliquis Print Language: Sudanese Disposition Disposition: Home, Self Care What to do if you have Problems For any increased pain, shortness of breath, bleeding, nausea or vomiting, chestpain, or any unexpected problems, contact your Primary Care Provider. Call [facility] ([phone]) or report to the closest Emergency Room. Call 911 if necessary. 03/15/251821 <Electronically signed by Alex Matias MD> Cosigner Signature (if applicable): CC: Dr. Tonio Fajardo, DO ~ Signed [facility] Work Phone: 1(376) 291-895207-27-2025 Hospital Discharge instructionsAdditional Instructions 1. Hold the next 4 doses of apixaban, Eliquis. 2. Take amoxicillin as prescribed until gone 3. Contact Dr. Vasquez's office in the morning to be seen later this week to have the pack removed.[facility] Work Phone: 1(559) 506-492507-21-2025 Consult note [facility] Medical Records Department [address] [place] [address] Counseling Note - Pharmacy 03/09/25 1457 MR#: [id number] Acct: [id number] Name: PEDRO HILLMAN Rep #:[id number] : 1945 80 From: Mala Sterling PCP: Dr. Tonio Fajardo, Status:ADM [facility] Counseling Pharmacy Service has performed [...] DAILY@1730 30 days #30 caps 03/09/25 03/09/25 5588 Date _ Mala Amos Signature (if applicable): Date CC: ~ Signed [facility]07-21-2025 Discharge summary Author Deric Lantigua [facility] Note Date/Time March 09, 2025 12:5 2pm [facility] Medical Records Department [address] [place] [address] Discharge Summary 03/09/25 1251 MR#: [id number] Acct: [id number] Name: PEDRO HILLMAN Rep #:[id number] : 1945 80 From: Deric Smith PCP: Dr. Tonio Fajardo DO Status:ADM IN Location: [place] [address] Providers Date of Admission: 03/04/25 Date of Discharge: 03/09/25 Primary Care Physician: Dr. Tonio Fajardo, Consultations 03/04/25 21:21 Consult: Cardiology Routine Consulting Provider: [facility] Reason for Consult: AE CHF, [...] Code(s): I25.10 - Atherosclerotic heart disease of chitimacha coronary artery without angina pectoris Qualifiers: Coronary Disease-Associated Artery/Lesion type: ch[place] artery [place] vs. transplanted heart: chitimacha heart Associated angina: without angina Qualified Code(s): I25.10 - Atherosclerotic heart disease of chitimacha coronary artery without angina pectoris (3) Chronic anticoagulation: Status: Acute Code(s): Z79.01 - assisted (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 of anticoagulants Plan 80-year-old gentleman [...] significant delta change. ACS ruled out. Motor Setter is consulted. Repeat proBNP is elevated but it does not reflect treatment response as it should not be ordered for that. Clinically patient is feeling better with improvement in shortness of breath. 2D echo 03/05 reported EF 55%, PASP 42 mmHg with moderate TR, moderate MA and mild PI. 03/06: Furosemide changed to [...] conduction. Later on irregular variable conduction on hospital monitor 03/06: Discussed with the rim fire priming tool setter. Metoprolol increased to 25 mg twice daily, [...] pressure in the 90s. Discussed with the rim fire priming tool setter. Advised to discontinue to discontinue metoprolol and [...] the CODE STATUS. 03/09: Discussed with the rim fire priming tool setter.Patient heart rate controlled in 70s. Yesterday rate was in 80s. Patient tolerated Cardizem 30 mg every 8 hourly therefore discharged on Cardizem CD 120 mg. I called patient's vwaaggsi-uc-lbm and explained the medication. Motor Setter felt probably does not need even pacemaker. [...] at the right lung base. Reading Location: [facility] Echocardiogram 03/04/25 20:08 Interpretation Summary Moderate [...] in right lung base aeration. Reading Location: [place] [address] Medications at Discharge Home Medications insulin glargine [...] 03/05/25 14:17 SB (Rec: 03/05/25 14:17 SB [id number]) Nutrition Malnutrition Evidence of Yes Malnutrition Exists [...] (Auto) 72.6 H, Lymph % (Auto) 9.7L, Evans % (Auto) 12.1 H, Eos % (Auto) [...] Self Care Charges/Coding Visit Charges Inpatient E&M: 01786 Disch Hosp >30min 03/09/25 1252 <Electronically signed by Deric Lantigua MD> Cosigner Signature (if applicable): CC: Dr. Tonio Fajardo DO; Dr. Willian Glaser MD; Dr. Deric Lantigua MD~ Signed [facility] Work Phone: 1(557) 830-201107-21-2025 Discharge summary Author Deric Lantigua [facility] Note Date/Time March 09, 2025 12:4 4pm [facility] Medical Records Department [address] [place] [address] Instructions for Home/Discharge Instructions 03/09/25 1031 MR#: [id number] Acct: [id number] Name: PEDRO HILLMAN Rep #:[id number] : 1945 80 From: Deric Smith PCP: [...] Mcdonald MD; Dr. Martin Vivas MD; Dr. Jsoe Lai MD; Dr. Issa Looney MD; Dr. Nicola Lindsey DO; Dr. Chago Miller MD; Dr. Tonio Fajardo DO; Dr. Willian Glaser MD; Dr. Orly Mitchell MD; Dr. Santos Hsu MD; Dr. Reinaldo Mclain MD; RICKIE Kumari; RICKIE Cummins ~ Signed [facility] Work Phone: 1(561) 921-385007-21-2025 Hospital Discharge instructionsAdditional Instructions Discharge with Claudio catheter. Date of Discharge: 03/09/25[facility] Work Phone: 1(399) 986-225907-21-2025 Discharge summary [facility] Medical Records Department [address] [place] [address] Discharge Summary 03/09/25 1251 MR#: [id number] Acct: [id number] Name: PEDRO HILLMAN Rep #:[id number] : 1945 80 From: Deric Smith PCP: Dr. Tonio Fajardo DO Status:ADM IN Location: [place] [address] Providers Date of Admission: 03/04/25 Date of Discharge: 03/09/25 Primary Care Physician: Dr. Tonio Fajardo, DO Consultations 03/04/25 21:21 Consult: Cardiology Routine Consulting Provider: [facility] Reason for Consult: AE CHF, [...] Code(s): I25.10 - Atherosclerotic heart disease of chitimacha coronary artery without angina pectoris Qualifiers: Coronary Disease-Associated Artery/Lesion type: [place] artery [place] vs. transplanted heart: nativeheart Associated angina: without angina Qualified Code(s): I25.10 - Atherosclerotic heart disease of chitim[place] coronary artery without angina pectoris (3) Chronic anticoagulation: Status: Acute Code(s): Z79.01 - assisted (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 of anticoagulants Plan 80-year-old gentleman [...] significant delta change. ACS ruled out. Motor Setter is consulted. Repeat proBNP is elevated but it does not reflect treatment response as it should not be ordered for that. Clinically patient is feeling better with improvement in shortness of breath. 2D echo 03/05 reported EF 55%, PASP 42 mmHg with moderate TR, moderate MA and mild PI. 03/06: Furosemide changed to [...] conduction. Later on irregular variable conduction on hospital monitor 03/06: Discussed with the rim fire priming tool setter. Metoprolol increased to 25 mg twice daily, Cardizem 60 mg [id number]. If heart rate controlled, will switch to [...] pressure in the 90s. Discussed with the rim fire priming tool setter. Advised to discontinue to discontinue metoprolol and [...] the CODE STATUS. 03/09: Discussed with the rim fire priming tool setter.Patient heart rate controlled in 70s. Yesterday rate was in 80s. Patient tolerated Cardizem 30 mg every 8 hourly therefore discharged on Cardizem CD 120 mg. I called patient's gbefnlrc-ry-oyj and explained the medication. Motor Setter felt probably does not need even pacemaker. [...] at the right lung base. Reading Location: [facility] Echocardiogram 03/04/25 20:08 Interpretation Summary Moderate [...] in right lung base aeration. Reading Location: [facility] Medications at Discharge Home Medications insulin glargine [...] 03/05/25 14:17 SB (Rec: 03/05/25 14:17 SB [id number]) Nutrition Malnutrition Evidence of Yes Malnutrition Exists [...] (Auto) 72.6 H, Lymph % (Auto) 9.7L, Evans % (Auto) 12.1 H, Eos % (Auto) [...] Mclain; Santos Hsu; Iker Rodriguez NP; Leslie Arrigaa PA; Tadeo Thakkar Instructions Additional Instructions / [...] Self Care Charges/Coding Visit Charges Inpatient E&M: 55923 Disch Hosp >30min 03/09/25 1252 Cosigner Signature (if applicable): CC: Dr. Tonio Fajardo DO; Dr. Willian Glaser MD; Dr. Deric Lantigua MD~ Signed [facility]07-21-[facility] Discharge summary [facility] Medical Records Department [address] [place] [address] Instructions for Home/Discharge Instructions 03/09/25 1031 MR#: [id number] Acct: [id number] Name: PEDRO HILLMAN Rep #:[id number] : 1945 80 From: Deric Smith PCP: [...] Kumari; RICKIE Cummins ~ Signed [facility]07-21-2025 Progress note Author Willian Glaser [facility] Note Date/Time March 09, 2025 9:53 am [facility] Medical Records Department [address] [place] [address] Progress Note - Cardiology 03/09/25 0943 MR#: [id number] Acct: [id number] Name: PEDRO HILLMAN Rep #:[id number] : 1945 80 From: Willian Glaser MD PCP: Dr. Tonio Fajardo DO Status:ADM IN Location: [place] [address] Subjective Subjective Patient evaluated in a seated [...] (Auto) 72.6 H, Lymph % (Auto) 9.7L, Evans % (Auto) 12.1 H, Eos % (Auto) 4.8, Baso % (Auto) 0.2, Absolute Neuts (auto) 4.0, Absolute Lymphs (auto) 0.53 L, Nucleated RBC % 0 Micro: Microbiology 07/18/25 18:40 Urine, Clean Catch Urine Culture [...] 72.6 H, Lymph % (Auto) 9.7 L, Evans % (Auto) 12.1 H, Eos % (Auto) [...] disease: QUALIFIERS: Coronary Disease-Associated Artery/Lesion type: nativeartery [place] vs. transplanted heart: ch[place] heart Associated angina: without angina Qualified Code(s): I25.10 - Atherosclerotic heart disease of chitim[place] coronary artery without angina pectoris PLAN: Patient carries a history of bypass graft surgery followed in the [facility]. The patient should be reevaluated in 2 to 4 weeks in the [facility] with advanced practitioner. Given the patient's [...] At discharge patient should follow-up with the [facility] advanced practitioner in 2 to 3 weeks. 4. If further assistance is needed please reconsult the [facility]. Charges/Coding Visit Charges Inpatient E&M: 11185 Subs Hosp L3 03/09/25 0953 <Electronically signed by Willian Glaser MD> Cosigner Signature (if applicable): CC: ~ Signed [facility] Work Phone: 1(577) 101-545807-21-2025 Progress note [facility] Medical Records Department [address] [place] [address] Progress Note - Cardiology 03/09/25 0943 MR#: [id number] Acct: [id number] Name: PEDRO HILLMAN Rep #:[id number] : 1945 80 From: Willian Glaser MD PCP: Dr. Tonio Fajardo, DO Status:ADM IN Location: [place] [address] Subjective Subjective Patient evaluated in a seated [...] (Auto) 72.6 H, Lymph % (Auto) 9.7L, Evans % (Auto) 12.1 H, Eos % (Auto) [...] 72.6 H, Lymph % (Auto) 9.7 L, Evans % (Auto) 12.1 H, Eos % (Auto) [...] disease: QUALIFIERS: Coronary Disease-Associated Artery/Lesion type: nativeartery [place] vs. transplanted heart: [place] heart Associated angina: without angina Qualified Code(s): I25.10 - Atherosclerotic heart disease of [place] coronary artery without angina pectoris PLAN: Patient carries a history of bypass graft surgery followed in the [facility]. The patient should be reevaluated in 2 to 4 weeks in the [facility] with advanced practitioner. Given the patient's [...] At discharge patient should follow-up with the [facility] advanced practitioner in 2 to3 weeks. 4. If further assistance is needed please reconsult the [facility]. Charges/Coding Visit Charges Inpatient E&M: 84313 [facility] Hosp 03/09/25 0953 Cosigner Signature (if applicable): CC: ~ Signed [facility]07-20-2025 Progress note Author Deric Lantigua [facility] Note Date/Time March 08, 2025 1:34 pm [facility] Medical Records Department [address] [place] [address] Progress Note - Hospitalist 03/08/25 0844 MR#: [id number] Acct: [id number] Name: PEDRO HILLMAN Rep #:[id number] : 1945 80 From: Deric Smith PCP: Dr. Tonio Fajardo, DO Status:ADM IN Location: [place] [address]- 1 Reason for Visit Chief Complaint: SOB. [...] Intake and Output for Last 24 Hours 07/18/25 07/19/25 07/20/25 23:59 23:59 23:59 Intake Total 430 / 430 50 / 50 Output Total 2450 / 2450 950 / 950 400 / 400 Balance -2020 / -2020 -900 / -900 -400 / -400 Medical Nutrition Assessment Dietitian: Malnutrition Criteria Met Start: 03/05/25 14:17 Freq: Status: Active Protocol: Document 03/05/25 14:17 SB (Rec: 03/05/25 14:17 SB [id number]) Nutrition Malnutrition Evidence of Yes Malnutrition Exists [...] also sustained 11 beats of V. tach. satellite project site monitor reviewed. Still in A-fib/flutter with bradycardia. [...] hematuria: (8) Atherosclerosis of coronary artery of ch[place] heart without angina pectoris: QUALIFIERS: Coronary Disease-Associated Artery/Lesion type: nativeartery Qualified Code(s): I25.10 - Atherosclerotic heart disease of ch[place] coronary artery without angina pectoris (9) Overweight [...] significant delta change. ACS ruled out. Motor Setter is consulted. Repeat proBNP is elevated but it does not reflect treatment response as it should not be ordered for that. Clinically patient is feeling better with improvement in shortness of breath. 2D echo 03/05 reported EF 55%, PASP 42 mmHg with moderate TR, moderate MA and mild PI. 03/06: Furosemide changed to [...] conduction. Later on irregular variable conduction on hospital monitor 03/06: Discussed with the rim fire priming tool setter. Metoprolol increased to 25 mg twice daily, [...] pressure in the 90s. Discussed with the rim fire priming tool setter. Advised to discontinue to discontinue metoprolol and [...] at the right lung base. Reading Location: [facility] Echocardiogram 03/04/25 20:08 Interpretation Summary Moderate [...] in right lung base aeration. Reading Location: [place] [address] Charges/Coding Addendum Addendum: Total time of the visit including total time spent in counseling or coordinationof care, (more than 50% of the total time, spent in obtaining medical information from nurses and other ancillary care providers ,explaining to the patient about labs, imaging, diagnosis and management of active complex medical conditions), multiple active cardiac issues, urinary retention discussion with rim fire priming tool setter and clinical update given to patient's kjedpdzq-aj-ciz, review of labs and imaging is 35 minutes. Visit Charges Inpatient E&M: 05136 Subs Hosp L3 03/08/25 1040 <Electronically signed by Deric Lantigua MD> Cosigner Signature (if applicable): CC: ~ Signed ADDENDUM by Dr. Deric Lantigua MD on 03/08/25 at 1334 Addendum The patient's son and rrsbooah-tm-nrg came to visit him. They decided patient to be DNR CC arrest with no intubation CODE STATUS changed. Living will/advanced directive/end of life care: Patient does not have living will or advanced directive. He is next of kin is his son and jqqlmjdt-pk-boi. After discussion of benefits/risks procedures involved with full code, DNR CC arrest and DNR CC, the patient and his tvvxifqh-if-kss he opted for DNR CC arrest with no intubation. Patient also said that he does not want pacemaker but his rxzvgdnp-og-uzj and son will discuss with him Patient does want artificial life support including intubation, tube feed, ventilator and/chest compression, central venous catheter, vasopressor and DC shock if needed Total time spent in ikyd-ud-tase encounter in discussion of advanced directive 17 minutes. 03/08/25 1334<Electronically signed by Deric Lantigua MD> Cosigner Signature (if applicable): cc: ~* Signed [facility] Work Phone: 1(996) 257-953507-20-2025 Progress note [facility] Medical Records Department [address] [place] [address] Progress Note - Hospitalist 03/08/25 0844 MR#: [id number] Acct: [id number] Name: PEDRO HILLMAN Rep #:[id number] : 1945 80 From: Deric Smith PCP: Dr. Tonio Fajardo, DO Status:ADM IN Location: [address] 1 Reason for Visit Chief Complaint: [...] 03/05/25 14:17 SB (Rec: 03/05/25 14:17 SB [id number]) Nutrition Malnutrition Evidence of Yes Malnutrition Exists [...] Patient alsosustained 11 beats of V. tach. satellite project site monitor reviewed. Still in A-fib/flutter with bradycardia. [...] hematuria: (8) Atherosclerosis of coronary artery of ch[place] heart without angina pectoris: QUALIFIERS: Coronary Disease-Associated Artery/Lesion type: nativeartery Qualified Code(s): I25.10 - Atherosclerotic heart disease of chit[place] coronary artery without angina pectoris (9) Overweight [...] significant delta change. ACS ruled out. Motor Setter is consulted. Repeat proBNP is elevated but it does not reflect treatment response as it should not be ordered for that. Clinically patient is feeling better with improvement in shortness of breath. 2D echo 03/05 reported EF 55%, PASP 42 mmHg with moderate TR, moderate MA and mild PI. 03/06: Furosemide changed to [...] conduction. Later on irregular variable conduction on hospital monitor 03/06: Discussed with the rim fire priming tool setter. Metoprolol increased to 25 mg twice daily, Cardizem 60 mg H8zezyqt. If heart rate controlled, will switch to [...] pressure in the 90s. Discussed with the rim fire priming tool setter. Advised to discontinue to discontinue metoprolol and [...] at the right lung base. Reading Location: [facility] Echocardiogram 03/04/25 20:08 Interpretation Summary Moderate [...] in right lung base aeration. Reading Location: [place] [address] Charges/Coding Addendum Addendum: Total time of the visit including total time spent in counseling or coordinationof care, (more than50% of the total time, spent in obtaining medical information from nurses and other ancillary care providers ,explaining to the patient about labs, imaging, diagnosis and management of active complexmedical conditions), multiple active cardiac issues, urinary retention discussion with cardiologistand clinical update given to patient's cvzmisio-th-xcf, review of labs and imaging is 35 minutes. Visit Charges Inpatient E&M: 03004 Subs Hosp 03/08/25 1040 Cosigner Signature (if applicable): CC: ~ Signed ADDENDUM by Dr. Deric Lantigua MD on 03/08/25 at 1334 Addendum The patient's son and cqqlcyqn-rq-wqo came to visit him. They decided patient to be DNR CC arrest with no intubation CODE STATUS changed. Living will/advanced directive/end of life care: Patient does not have living will or advanced directive. He is next of kin is his son and lmyuymgw-ex-pja. After discussion of benefits/risks procedures involved with full code, DNR CC arrest and DNR CC, the patient and his ejlymful-vy-nrh he opted for DNR CC arrest with no intubation. Patient also said that he does not want pacemaker but his nbwnywwi-vr-yps and son will discuss with him Patient does want artificial life support including intubation, tube feed, ventilator and/chest compression, central venous catheter, vasopressor and DC shock if needed Total time spent in dmgu-sr-etbe encounter in discussion of advanced directive 17 minutes. 03/08/25 1334 Cosigner Signature (if applicable): cc: ~* Signed [facility]07-20-2025 Progress note Author Marjorie Green [facility] Note Date/Time March 08, 2025 8:51 am [facility] Medical Records Department [address] [place] [address] Progress Note - Cardiology 03/08/25 0848 MR#: [id number] Acct: [id number] Name: PEDRO HILLMAN Rep #:[id number] : 1945 80 From: Marjorie Green MD PCP: Dr. Tonio Fajardo, DO Status:ADM IN Location: [place] [address] Subjective Subjective Denies any complaints. Became bradycardic [...] (if applicable): CC: ~ Signed [facility] Work Phone: 1(290) 620-134107-20-2025 Progress note [facility] Medical Records Department [address] [place] [address] Progress Note - Cardiology 03/08/25 0848 MR#: [id number] Acct: [id number] Name: PEDRO HILLMAN Rep #:[id number] : 1945 80 From: Marjorie Green MD PCP: Dr. Tonio Fajardo, DO Status:ADM IN Location: [place] [address] Subjective Subjective Denies any complaints. Became bradycardic [...] (if applicable): CC: ~ Signed [facility]07-19-2025 Progress note Author Deric Lantigua [facility] Note Date/Time March 07, 2025 1:51 pm [facility] Medical Records Department [address] [place] [address] Progress Note - Hospitalist 03/07/25 1342 MR#: [id number] Acct: [id number] Name: PEDRO HILLMAN Rep #:[id number] : 1945 80 From: Deric Smith PCP: Dr. Tonio Fajardo, DO Status:ADM IN Location: [place] [address] Reason for Visit Chief Complaint: SOB. Objective [...] 03/05/25 14:17 SB (Rec: 03/05/25 14:17 SB [id number]) Nutrition Malnutrition Evidence of Yes Malnutrition Exists [...] low 108/34 but improved to 129 systolic. satellite project site monitor reviewed. Still in A-fib/flutter. Shortness of [...] hematuria: (8) Atherosclerosis of coronary artery of [place] heart without angina pectoris: QUALIFIERS: Coronary Disease-Associated Artery/Lesion type: nativeartery Qualified Code(s): I25.10 - Atherosclerotic heart disease of [place] coronary artery without angina pectoris (9) Overweight [...] significant delta change. ACS ruled out. Motor Setter is consulted. Repeat proBNP is elevated but it does not reflect treatment response as it should not be ordered for that. Clinically patient is feeling better with improvement in shortness of breath. 2D echo 03/05 reported EF 55%, PASP 42 mmHg with moderate TR, moderate MA and mild PI. 03/06: Furosemide changed to [...] conduction. Later on irregular variable conduction on hospital monitor 03/06: Discussed with the rim fire priming tool setter. Metoprolol increased to 25 mg twice daily, [...] extremity ulcer statuspost aortofemoral bypass graft in 2010 and chronic venous insufficiency. Continue clopidogrel 12. [...] at the right lung base. Reading Location: [facility] Echocardiogram 03/04/25 20:08 Interpretation Summary Moderate [...] in right lung base aeration. Reading Location: [place] [address] Charges/Coding Visit Charges Inpatient E&M: 50285 Subs Hosp L2 03/07/25 1351 <Electronically signed by Deric Lantigua MD> Cosigner Signature (if applicable): CC: ~ Signed [facility] Work Phone: 1(683) 583-396107-19-2025 Progress note [facility] Medical Records Department [address] [place] [address] Progress Note - Hospitalist 03/07/25 1342 MR#: [id number] Acct: [id number] Name: PEDRO HILLMAN Rep #:[id number] : 1945 80 From: Deric Smith PCP: Dr. Tonio Fajardo, DO Status:ADM IN Location: [place] [address] Reason for Visit Chief Complaint: SOB. Objective [...] 03/05/25 14:17 SB (Rec: 03/05/25 14:17 SB [id number]) Nutrition Malnutrition Evidence of Yes Malnutrition Exists [...] low 108/34 but improved to 129 systolic. satellite project site monitor reviewed. Still in A-fib/flutter. Shortness of [...] hematuria: (8) Atherosclerosis of coronary artery of [place] heart without angina pectoris: QUALIFIERS: Coronary Disease-Associated Artery/Lesion type: nativeartery Qualified Code(s): I25.10 - Atherosclerotic heart disease of [place] coronary artery without angina pectoris (9) Overweight [...] significant delta change. ACS ruled out. Motor Setter is consulted. Repeat proBNP is elevated but it does not reflect treatment response as it should not be ordered for that. Clinically patient is feeling better with improvement in shortness of breath. 2D echo 03/05 reported EF 55%, PASP 42 mmHg with moderate TR, moderate MA and mild PI. 03/06: Furosemide changed to [...] conduction. Later on irregular variable conduction on hospital monitor 03/06: Discussed with the rim fire priming tool setter. Metoprolol increased to 25 mg twice daily, Cardizem 60 mg E8xgiaub. If heart rate controlled, will switch to [...] in right lung base aeration. Reading Location: [place] [address] Charges/Coding Visit Charges Inpatient E&M: 35284 Subs Hosp L2 03/07/25 1351 Cosigner Signature (if applicable): CC: ~ Signed [facility]07-18-2025 Progress note Author Deric Lantigua [facility] Note Date/Time March 06, 2025 3:46 pm [facility] Medical Records Department [address] [place] [address] Progress Note - Hospitalist 03/06/25 1540 MR#: [id number] Acct: [id number] Name: PEDRO HILLMAN Rep #:[id number] : 1945 80 From: Deric Smith PCP: Dr. Tonio Fajardo, DO Status:ADM IN Location: [address] 1 Reason for Visit Chief Complaint: [...] 03/05/25 14:17 SB (Rec: 03/05/25 14:17 SB [id number]) Nutrition Malnutrition Evidence of Yes Malnutrition Exists [...] is improved. Still in A-fib/flutter with heart [id number]. Shortness of breath is better. Did not [...] hematuria: (8) Atherosclerosis of coronary artery of [place] heart without angina pectoris: QUALIFIERS: Coronary Disease-Associated Artery/Lesion type: nativeartery Qualified Code(s): I25.10 - Atherosclerotic heart disease of [place] coronary artery without angina pectoris (9) Overweight [...] significant delta change. ACS ruled out. Motor Setter is consulted. Repeat proBNP is elevated but it does not reflect treatment response as it should not be ordered for that. Clinically patient is feeling better with improvement in shortness of breath. 2D echo 03/05 reported EF 55%, PASP 42 mmHg with moderate TR, moderate MA and mild PI. 03/06: Furosemide changed to [...] conduction. Later on irregular variable conduction on hospital monitor 03/06: Discussed with the rim fire priming tool setter. Metoprolol increased to 25 mg twice daily, [...] at the right lung base. Reading Location: [facility] Echocardiogram 03/04/25 20:08 Interpretation Summary Moderate [...] in right lung base aeration. Reading Location: [place] [address] Charges/Coding Visit Charges Inpatient E&M: 28230 [facility] Hosp L2 03/06/25 1546 <Electronically signed by Deric Lantigua MD> Cosigner Signature (if applicable): CC: ~ Signed [facility] Work Phone: 1(253) 662-728007-18-2025 Progress note [facility] Medical Records Department [address] [place] [address] Progress Note - Hospitalist 03/06/25 1540 MR#: [id number] Acct: [id number] Name: PEDRO HILLMAN Rep #:[id number] : 1945 80 From: Deric Smith PCP: Dr. Tonio Fajardo, DO Status:ADM IN Location: [place] [address] Reason for Visit Chief Complaint: SOB. Objective [...] Intake and Output for Last 24 Hours 07/16/25 07/17/25 07/18/25 23:59 23:59 23:59 Intake Total 50 / 290 908.00 / 908.00 0 / 0 Output Total 3451 / 3451 1550 / 1550 Balance 50 / 40 -2543.00 / -2543.00 -1550 / -1550 Medical Nutrition Assessment Dietitian: Malnutrition Criteria Met Start: 03/05/25 14:17 Freq: Status: Active Protocol: Document 03/05/25 14:17 SB (Rec: 03/05/25 14:17 SB [id number]) Nutrition Malnutrition Evidence of Yes Malnutrition Exists [...] is improved. Still in A-fib/flutter with heart [id number]. Shortness of breath is better. Did not [...] hematuria: (8) Atherosclerosis of coronary artery of chitimacha heart without angina pectoris: QUALIFIERS: Coronary Disease-Associated Artery/Lesion type: nativeartery Qualified Code(s): I25.10 - Atherosclerotic heart disease of chitim[place] coronary artery without angina pectoris (9) Overweight [...] significant delta change. ACS ruled out. Motor Setter is consulted. Repeat proBNP is elevated but it does not reflect treatment response as it should not be ordered for that. Clinically patient is feeling better with improvement in shortness of breath. 2D echo 03/05 reported EF 55%, PASP 42 mmHg with moderate TR, moderate MA and mild PI. 03/06: Furosemide changed to [...] conduction. Later on irregular variable conduction on hospital monitor 03/06: Discussed with the rim fire priming tool setter. Metoprolol increased to 25 mg twice daily, Cardizem 60 mg [id number]. If heart rate controlled, will switch to [...] extremity ulcer statuspost aortofemoral bypass graft in 2010 and chronic venous insufficiency. Continue clopidogrel 12. [...] at the right lung base. Reading Location: [facility] Echocardiogram 03/04/25 20:08 Interpretation Summary Moderate [...] in right lung base aeration. Reading Location: [place] [address] Charges/Coding Visit Charges Inpatient E&M: 07677 Subs Hosp L2 03/06/25 1546 Cosigner Signature (if applicable): CC: ~ Signed [facility]07-18-2025 Consult note Author Marjorie Green [facility] Note Date/Time March 06, 2025 9:33 am [facility] Medical Records Department [address] [place] [address] Consultation - Cardiology 03/06/25925 MR#: [id number] Acct: [id number] Name: PEDRO HILLMAN Rep #:[id number] : 1945 80 From: Marjorie Green MD PCP: Dr. Tonio Fajardo, DO Status:ADM IN Location: [place] [address] Assessment & Plan Assessment/Plan (1) Atrial flutter [...] shortness of breath is much improved. [facility] Medical History (Updated 03/06/25 @ 09:[address] Marjorie Green MD) Other persistent atrial fibrillation New onset atrial flutter COVID Wears hearing aid in both ears Former smoker Coronary artery disease Peripheral vascular occlusive disease BPH (benign prostatic hyperplasia) Chronic kidney disease, stage 3 Atherosclerosis of coronary artery of chitimacha heart without angina pectoris Hyperlipidemia Lower extremity [...] ELIZALDE Performed By: Haley Stevens and Student 03/06/25932 <Electronically signed by Marjorie Green MD> Cosigner Signature (if applicable): CC: Dr. Tonio Fajardo, ~ Signed [facility] Work Phone: 1(476) 217-889907-18-2025 Consult note [facility] Medical Records Department [address] [place] [address] Consultation - Cardiology 03/06/25925 MR#: [id number] Acct: [id number] Name: PEDRO HILLMAN Rep #:[id number] : 1945 80 From: Marjorie Green MD PCP: Dr. Tonio Fajardo DO Status:ADM IN Location: [place] [address] Assessment & Plan Assessment/Plan (1) Atrial flutter [...] for coronary artery disease status postCABG in 2012, HFpEF, atrial flutter, peripheral arterial [...] shortness of breath is much improved. [facility] Medical History (Updated 03/06/25 @ 09:[address] Marjorie Green MD) Other persistent atrial fibrillation New onset atrial flutter COVID Wears hearing aid in both ears Former smoker Coronary artery disease Peripheral vascular occlusive disease BPH (benign prostatic hyperplasia) Chronic kidney disease, stage 3 Atherosclerosis of coronary artery of chitim[place] heart without angina pectoris Hyperlipidemia Lower extremity [...] Cosigner Signature (if applicable): CC: Dr. Tonio aFjardo, ~ Signed [facility]07-17-2025 Progress note Author Deric Lantigua [facility] Note Date/Time March 05, 2025 3:56 pm [facility] Medical Records Department [address] [place] [address] Progress Note - Hospitalist 03/05/25 0719 MR#: [id number] Acct: [id number] Name: PEDRO HILLMAN Rep #:[id number] : 1945 80 From: Deric Smith PCP: Dr. Tonio Fajardo DO Status:ADM IN Location: [place] [address] Reason for Visit Chief Complaint: SOB. Objective [...] 78.1 H, Lymph % (Auto) 10.1 L, Evans % (Auto) 9.1, Eos % (Auto) 1.6, [...] Clarity Cloudy, Urine pH 6.5, Ur Specific [place] 1.010, Urine Protein 100 H, Urine Glucose [...] (Auto) 76.4 H, Lymph % (Auto) 9.5L, Evans % (Auto) 11.4 H, Eos % (Auto) [...] at the right lung base. Reading Location: [facility] Chest X-Ray 03/05/25 04:30 IMPRESSION: Small interval improvement in right lung base aeration. Reading Location: [facility] Rhythm Strip Rhythm Strip: Atrial flutter [...] hematuria: (8) Atherosclerosis of coronary artery of chitimacha heart without angina pectoris: QUALIFIERS: Coronary Disease-Associated Artery/Lesion type: nativeartery Qualified Code(s): I25.10 - Atherosclerotic heart disease of ch[place] coronary artery without angina pectoris (9) Overweight [...] significant delta change. ACS ruled out. Motor Setter is consulted. Repeat proBNP is elevated but it does not reflect treatment response as it should not be ordered for that. Clinically patient is feeling better with improvement in shortness of breath. 2D echo 03/05 reported EF 55%, PASP 42 mmHg with moderate TR, moderate MA and mild PI. 2. EKG evidence of Atrial Flutter; with Rapid Ventricular Response of ~117 bpm even after being treated with IV Cardizem bolus probably precipitating CHF exacerbation: Patient already on apixaban patient had digoxin. TSH 3.7 normal. Twelve-lead EKG individually reviewed and shows atrial flutter 2 is to 1 conduction. Later on irregular variable conduction on hospital monitor 3. CKD; stage IIIb with hyperkalemia, [...] Clarity Cloudy, Urine pH 6.5, Ur Specific [place] 1.010, Urine Protein 100 H, Urine Glucose [...] (Auto) 76.4 H, Lymph % (Auto) 9.5L, Evans % (Auto) 11.4 H, Eos % (Auto) [...] at the right lung base. Reading Location: [facility] Echocardiogram 03/04/25 20:08 Interpretation Summary Moderate [...] in right lung base aeration. Reading Location: [place] [address] Charges/Coding Addendum Addendum: Total time of the [...] imagingis 35 minutes. Visit Charges Inpatient E&M: 29104 Subs Hosp L3 03/05/25 1556 <Electronically signed by Deric Lantigua MD> Cosigner Signature (if applicable): CC: ~ Signed [facility] Work Phone: 1(324) 385-603107-17-2025 Progress note [facility] Medical Records Department [address] [place] [address] Progress Note - Hospitalist 03/05/25 0719 MR#: [id number] Acct: [id number] Name: PEDRO HILLMAN Rep #:[id number] : 1945 80 From: Deric Smith PCP: Dr. Tonio Fajardo, DO Status:ADM IN Location: [place] [address] Reason for Visit Chief Complaint: SOB. Objective [...] 78.1 H, Lymph % (Auto) 10.1 L, Evans % (Auto) 9.1, Eos % (Auto) 1.6, [...] Clarity Cloudy, Urine pH 6.5, Ur Specific [place] 1.010, Urine Protein 100 H, Urine Glucose [...] Std Deviation 52.8 H, RDW Coeff of Rgegie 16.6 H, Plt Count 181, MPV 10.7, Immature Gran % (Auto) 0.300, Neut % (Auto) 76.4 H, Lymph % (Auto) 9.5L, Evans % (Auto) 11.4 H, Eos % (Auto) [...] at the right lung base. Reading Location: [facility] Chest X-Ray 03/05/25 04:30 IMPRESSION: Small interval improvement in right lung base aeration. Reading Location: [place] [address] Rhythm Strip Rhythm Strip: Atrial flutter Rate: [...] hematuria: (8) Atherosclerosis of coronary artery of chitim[place] heart without angina pectoris: QUALIFIERS: Coronary Disease-Associated Artery/Lesion type: nativeartery Qualified Code(s): I25.10 - Atherosclerotic heart disease of ch[place] coronary artery without angina pectoris (9) Overweight [...] significant delta change. ACS ruled out. Motor Setter is consulted. Repeat proBNP is elevated but it does not reflect treatment response as it should not be ordered for that. Clinically patient is feeling better with improvement in shortness of breath. 2D echo 03/05 reported EF 55%, PASP 42 mmHg with moderate TR, moderate MA and mild PI. 2. EKG evidence of Atrial Flutter; with Rapid Ventricular Response of ~117 bpm even after being treated with IV Cardizem bolus probably precipitating CHF exacerbation: Patient already on apixaban patient had digoxin. TSH 3.7 normal. Twelve-lead EKG individually reviewed and shows atrial flutter 2 is to 1 conduction. Later on irregular variable conduction on hospital monitor 3. CKD; stage IIIb with hyperkalemia, [...] extremity ulcer statuspost aortofemoral bypass graft in 2010 and chronic venous insufficiency. Continue clopidogrel 12. [...] Clarity Cloudy, Urine pH 6.5, Ur Specific [place] 1.010, Urine Protein 100 H, Urine Glucose [...] (Auto) 76.4 H, Lymph % (Auto) 9.5L, Evans % (Auto) 11.4 H, Eos % (Auto) [...] at the right lung base. Reading Location: [facility] Echocardiogram 03/04/25 20:08 Interpretation Summary Moderate [...] in right lung base aeration. Reading Location: [place] [address] Charges/Coding Addendum Addendum: Total time of the [...] imagingis 35 minutes. Visit Charges Inpatient E&M: 33743 Subs Hosp 03/05/25 3566 Cosigner Signature (if applicable): CC: ~ Signed [facility]07-17-2025 History and physical note Author Nicola Madison [facility] Note Date/Time March 05, 2025 6:22 am [facility] Medical Records Department [address] [place] [address] H&P Exam - Hospitalist 03/04/251921 MR#: [id number] Acct: [id number] Name: PEDRO HILLMAN Rep #:[id number] : 1945 80 From: Nicola Levy DO PCP: Dr. Tonio Fajardo, DO Status:ADM IN Location: [facility] [id number]- 1 HPI - General General Date of [...] and OA who presents to [facility] ER complaining of SOB. Mr. Hillman [...] ~53% with moderate mitral annular calcification and lojc-li-rvdtshsw (~1-2+) mitral valve insufficiency with a pulmonary [...] expected to extend beyond 2 midnights. [facility] Medical History Other persistent atrial fibrillation New onset atrial flutter COVID Wears hearing aid in both ears Former smoker Coronary artery disease Peripheral vascular occlusive disease BPH (benign prostatic hyperplasia) Chronic kidney disease, stage 3 Atherosclerosis of coronary artery of chitim[place] heart without angina pectoris Hyperlipidemia Lower extremity [...] 78.1 H, Lymph % (Auto) 10.1 L, Evans % (Auto) 9.1, Eos % (Auto) 1.6, [...] at the right lung base. Reading Location: [facility] Assessment & Plan Assessment/Plan (1) CHF exacerbation: QUALIFIERS: Heart failure type: unspecified Qualified Code(s): I50.9 - Heart failure, unspecified (2) Atrial flutter with rapid ventricular response: (3) Chronic anticoagulation: (4) Elevated troponin: (5) Hyperkalemia: (6) Pleural effusion on right: (7) Acute cystitis with hematuria: (8) Atherosclerosis of coronary artery of chitim[place] heart without angina pectoris: QUALIFIERS: Coronary Disease-Associated Artery/Lesion type: nativeartery Qualified Code(s): I25.10 - Atherosclerotic heart disease of chit[place] coronary artery without angina pectoris (9) Overweight (BMI 25.0-29.9): PLAN: Plan 1. AE CHF; evidenced by elevated NT pro-BNP II of 3,316 pg/mL with a corresponding CXR that revealed cardiomegaly and CHF with small right pleural effusion and bibasilar atelectasis worse at the Right lung base - Admit to U. Give furosemide 40 mg IV twice daily plus supplemental magnesium. Maintain metoprolol and lisinopril as before. Check NT pro-BNP II and CXR daily to follow trend. Check echocardiogram to evaluate LVEF. Serialize troponin. Finally, we will consult [facility] see this patient on rounds [...] 75 minutes. Charges/Coding Visit Charges Inpatient E&M: 26355 Init Hosp L3 03/05/25 0622 <Electronically signed by Nicola Lindsey DO> Cosigner Signature (if applicable): CC: Dr. Nicola Lindsey DO; Dr. Tonio Fajardo DO~ Signed [facility] Work Phone: 1(602) 368-563807-17-2025 History and physical note [facility] Medical Records Department [address] [place] [address] H&P Exam - Hospitalist 03/04/251921 MR#: [id number] Acct: [id number] Name: PEDRO HILLMAN Rep #:[id number] : 1945 80 From: Nicola Levy DO PCP: Dr. Tonio Fajardo DO Status:ADM IN Location: [place] [address]10- 1 HPI - General General Date of [...] and OA who presents to [facility] ERcomplaining of SOB. Mr. Hillman reports [...] ~53% with moderate mitral annular calcification and ykvs-ua-bkttyojx (~1-2+) mitral valve insufficiency with a pulmonary [...] expected to extend beyond 2 midnights. [facility] Medical History Other persistent atrial fibrillation New onset atrial flutter COVID Wears hearing aid in both ears Former smoker Coronary artery disease Peripheral vascular occlusive disease BPH (benign prostatic hyperplasia) Chronic kidney disease, stage 3 Atherosclerosis of coronary artery of [place] heart without angina pectoris Hyperlipidemia Lower extremity [...] 78.1 H, Lymph % (Auto) 10.1 L, Evans % (Auto) 9.1, Eos % (Auto) 1.6, [...] at the right lung base. Reading Location: [facility] Assessment & Plan Assessment/Plan (1) CHF exacerbation: QUALIFIERS: Heart failure type: unspecified Qualified Code(s): I50.9 - Heart failure, unspecified (2) Atrial flutter with rapid ventricular response: (3) Chronic anticoagulation: (4) Elevated troponin: (5) Hyperkalemia: (6) Pleural effusion on right: (7) Acute cystitis with hematuria: (8) Atherosclerosis of coronary artery of chitimacha heart without angina pectoris: QUALIFIERS: Coronary Disease-Associated Artery/Lesion type: nativeartery Qualified Code(s): I25.10 - Atherosclerotic heart disease of chitim[place] coronary artery without angina pectoris (9) Overweight [...] LVEF. Serialize troponin. Finally, we will consult [facility] see this patient on rounds [...] 75 minutes. Charges/Coding Visit Charges Inpatient E&M: 71882 Init Hosp L3 03/05/25 0622 Cosigner Signature (if applicable): CC: Dr. Nicola Lindsey DO; Dr. Tonio Fajardo DO~ Signed [facility]07-17-2025 Radiology Diagnostic study note [facility] Imaging Services [address] [place] [address] Chest 1 View (Portable) MR#: [id number] Acct: [id number] Name: PEDRO HILLMAN Rep #: [id number] : 1945 M 80 From: Regi Babb MD PCP: Dr. Tonio Fajardo DO Status: ADM IN Study:Chest 1 View (Portable) Date of Exam: 03/05/25 Exam# [id number] Ordering Dr: Nicola Mukherjee DO PROCEDURE: CHEST [...] in right lung base aeration. Reading Location: [facility] CC: Dr. Nicola Lindsey, DO; Dr. Tonio Fajardo, DO ~ Director Translational: Signed [facility]07-16-2025 Evaluation note* Diagnosis Onset Date Resolution Status Admit Date Acute cystitis with hematuria acute March 04, 2025 7:57pm Atrial flutter with rapid ventricular response acute March 04, 2025 7:57pm Chronic anticoagulation acute 2024 7:57pm Coronary artery disease acute shanda2024 7:57pm [...] 042024 7:57pm Atherosclerosis of coronary artery of chitim[place] heart without angina pectoris chronic March 04, 2025 7:57pm CHF exacerbation chronic February 7:57pm Hypertension chronic March 04, 2 025 7:57pm [facility] Work Phone: 1(261) 823-266707-16-2025 Evaluation note* Diagnosis Onset Date Resolution Status Admit Date Acute cystitis with hematuria acute March 04, 2025 7:57pm Atrial flutter with rapid ventricular response acute March 04, 2025 7:57pm Chronic anticoagulation acute 2024 7:57pm Coronary artery disease acute J shanda 16th, 2025 7:57pm Diabetes acute March 04 7:57pm Elevated [...] 042024 7:57pm Atherosclerosis of coronary artery of chit[place] heart without angina pectoris chronic March 04, 2025 7:57pm CHF exacerbation chronic February 7:57pm Hypertension chronic March 04, 025 7:57pm Peripheral arterial disease inactive March 04, 2025 7:57pm Other persistent atrial fibrillation acute March 17, 2025 12:51pm Hyperlipidemia chronic March 17, 2025 12:51pm Hypertension chronic March 17, 12:51pm Peripheral vascular occlusiv e disease chronic March 17, 2025 12:51pm 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March 17, 2025 12:51pm [facility] Work Phone: 1(248) 649-930607-16-2025 Evaluation note* Diagnosis Onset Date Resolution Status [...] 042024 7:57pm Atherosclerosis of coronary artery of chitim[place] heart without angina pectoris chronic March 04, [...] aortocoronary by pass graft 2012April 05 7:55pm [facility] Work Phone: 1(696) 414-619207-16-2025 Evaluation note* Diagnosis Onset Date Resolution Status [...] 042024 7:57pm Atherosclerosis of coronary artery of chitim[place] heart without angina pectoris chronic March 04, [...] cardiac pacemaker acute April 10, 2025 11:14am [facility] Work Phone: 1(920) 787-403807-16-2025 Evaluation note* Diagnosis Onset Date Resolution Status Admit Date Acute cystitis with hematuria acute March 04, 2025 7:57pm Atrial flutter with rapid ventricular response acute March 04, 2025 7:57pm Chronic anticoagulation acute J shanda 2024 7:57pm Coronary artery disease acute J shanda 2024 7:57pm Diabetes acute March 04 7:57pm Elevated troponin acute March 042024 7:57pm Hyperkalemia acute March 04 025 7:57pm Mitral valve regurgitation acute March 04, 2025 7:57pm Other persistent atrial fibrillation acute March 04, 2025 7:57pm Overweight (BMI 25.0-29.9) acute March 04, 2025 7:57pm Pleural effusion on right acute March 04, 2025 7:57pm Tricuspid valve regurgitation acute March 04, 2025 7:57pm Acute on chronic diastolic congestive heart failure chronic March 042024 7:57pm Atherosclerosis of coronary artery of chitim[place] heart without angina pectoris chronic March 04, [...] 2024 7:55pm Coronary artery disease acute A ug2024 7:55pm Elevated troponin acute April 05, 2025 [...] infection) resolv ed April 10, 2025 6:33pm [facility] Work Phone: 1(958) 177-299207-16-2025 Evaluation note* Diagnosis Onset Date Resolution Status Admit Date Acute cystitis with hematuria acute March 04, 2025 7:57pm Atrial flutter with rapid ventricular response acute March 04, 2025 7:57pm Chronic anticoagulation acute 2024 7:57pm Coronary artery disease acute 2024 7:57pm Diabetes acute March 04 7:57pm Elevated troponin acute March 042024 7:57pm Mitral valve regurgitation acute March 04, 2025 7:57pm Other persistent atrial fibrillation acute March 04, 2025 7:57pm Overweight (BMI 25.0-29.9) acute March 04, 2025 7:57pm Pleural effusion on right acute March 04, 2025 7:57pm Tricuspid valve regurgitation acute March 04, 2025 7:57pm Atherosclerosis of coronary artery of chitim[place] heart without angina pectoris chronic March 04, 2025 7:57pm CHF exacerbation chronic February 7:57pm Hypertension chronic March 04 7:57pm Acute on chronic diastolic congestive heart failure resolved March 042024 7:57pm Hyperkalemia resolved March 04 7:57pm Peripheral arterial disease inactive March 04, 2025 7:57pm Other persistent atrial fibrillation acute March 17, 2025 12:51pm Hyperlipidemia chronic March 17, 2025 12:51pm Hypertension chronic March 17 12:51pm Peripheral vascular occlusiv e disease chronic March 17, 2025 12:51pm 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 March 17, 2025 12:51pm Acute cystitis without hematuria acu te April 05, 2025 7:55pm Chronic anticoagulation acute A ugust 2024 7:55pm Coronary artery disease acute A ugust 2024 7:55pm Elevated troponin acute April 05, 2025 7:55pm Heart block AV complete acute A ugust 2024 7:55pm Overweight (BMI 25.0-29.9) acute April 05, 2025 7:55pm Respiratory insufficiency acute April 05, 2025 7:55pm Chronic atrial fibrillation chronic April 05, 2025 7:55pm CKD (chronic kidney disease) , stage IV chronic April 05 7:55pm 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 April 05 7:55pm Acute on chronic diastolic congestive heart failure resolved April 05, 2025 7:55pm DARIUSZ (acute kidney injury) resolved April 05, 2025 7:55pm Hyperkalemia resolved April 05, 2025 7:55pm Heart block AV complete acute A ugust 2024 11:14am Presence of cardiac pacemaker acute April 10, 2025 11:14am Acute heart failure with preserved ejection fraction (HFpEF) acute April 10 6:33pm Acute respiratory failure wi th hypoxia acute April 10 6:33pm Atrial fibrillation acute Augus t 2024 [...] 10, 2025 6:33pm Hyperlipidemia chronic March 6:33pm DARIUSZ (acute kidney injury) resolved April 10, 2025 6:33pm UTI (urinary tract infection) resolv ed April 10, 2025 6:33pm Acute heart failure with preserved ejection fraction (HFpEF) acute April 17 6:19pm Acute respiratory failure wi th hypoxia acute April 17 6:19pm Atrial fibrillation acute Augus t 2024 6:19pm BPH (benign prostatic hyperplasia) acute April 17 6:19pm Debility acute April 17, 025 6:19pm Pleural effusion acute March 212024 6:19pm Pneumonia acute April 17, 025 6:19pm Pneumothorax acute April 17, 2025 6:19pm Tachy-brittany syndrome acute Augu st 2024 6:19pm Type 2 diabetes mellitus wit h hyperglycemia acute April 17 6:19pm COPD (chronic obstructive pulmonary disease) chronic April 17, 2025 6:19pm Hyperlipidemia chronic March 6:19pm [facility] Work Phone: 1(544) 743-553207-16-2025 Discharge summary Author Chris Ochoa [facility] Note Date/Time March 04, 2025 7:26 pm [facility] Medical Records Department [address] [place] [address] Emergency Department Summary 03/04/25 MR#: [id number] Acct: [id number] Name: PEDRO HILLMAN Rep #:[id number] : 1945 80 From: Chris Ochoa MD [...] stage 3 Atherosclerosis of coronary artery of chitimacha heart without angina pectoris Hyperlipidemia Lower extremity [...] signs. Back nontender. Movingall 4 extremities. 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 Calves nontender without edema or cords. [...] 78.1 H Lymph % (Auto) 10.1 L Evans % (Auto) 9.1 Eos % (Auto) 1.6 [...] at the right lung base. Reading Location: [facility] Chest x-ray, 2 views, AP and lateral, [...] Chronic anticoagulation Disposition Disposition: Acute Care Hospital [facility] What to do if you have Problems For any increased pain, shortness of breath, bleeding, nausea or vomiting, chestpain, or any unexpected problems, contact your Primary Care Provider. Call [facility] ([phone]) or report to the closest Emergency Room. Call 911 if necessary. 03/04/251925 <Electronically signed by Chris Ochoa MD> Cosigner Signature (if applicable): CC: Dr. Tonio Fajardo DO ~ Signed [facility] Work Phone: 1(731) 535-687107-16-2025 Discharge summary [facility] Medical Records Department [address] [place] [address] Emergency Department Summary 03/04/25 MR#: [id number] Acct: [id number] Name: PEDRO HILLMAN Rep #:[id number] : 1945 80 From: Chris Ochoa MD [...] similar symptoms: Yes Recent Illness/Hospitalization: No PFSH [facility] Medical History Other persistent atrial fibrillation New onset atrial flutter DIMA Wears hearing aid in both ears Former smoker Coronary artery disease Peripheral vascular occlusive disease BPH (benign prostatic hyperplasia) Chronic kidney disease, stage 3 Atherosclerosis of coronary artery of chitimacha heart without angina pectoris Hyperlipidemia Lower extremity [...] signs. Back nontender. Movingall 4 extremities. 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 Calves nontender without edema or cords. [...] 78.1 H Lymph % (Auto) 10.1 L Evans % (Auto) 9.1 Eos % (Auto) 1.6 [...] at the right lung base. Reading Location: [facility] Chest x-ray, 2 views, AP and lateral, [...] Chronic anticoagulation Disposition Disposition: Acute Care Hospital [facility] What to do if you have Problems For any increased pain, shortness of breath, bleeding, nausea or vomiting, chestpain, or any unexpected problems, contact your Primary Care Provider. Call [facility] ([phone]) or report tothe closest Emergency Room. Call 911 if necessary. 03/04/251925 Cosigner Signature (if applicable): CC: Dr. Tonio Fajardo DO ~ Signed [facility]07-16-2025 Radiology Diagnostic study note [facility] Imaging Services [address] [place] [address] Chest PA and Lateral MR#: [id number] Acct: [id number] Name: PEDRO HILLMAN Rep #: [id number] : 1945 M 80 From: Tom Flores MD PCP: Dr. Tonio Fajardo DO Status: PRE ER Study:Chest PA and Lateral Date of Exam: 03/04/25 Exam# [id number] Ordering Dr: Camila Ochoa MD PROCEDURE: CHEST [...] at the right lung base. Reading Location: [place] [address] CC: Dr. Chris Ochoa MD; Dr. Tonio Fajardo DO ~ Director Translational: Signed [facility]07-16-2025 Discharge summary Author Chris Ochoa [facility] Note Date/Time March 04, 2025 7:26 pm [facility] Medical Records Department [address] [place] [address] Emergency Department Summary 03/04/25 MR#: [id number] Acct: [id number] Name: PEDRO HILLMAN Rep #:[id number] : 1945 80 From: Chris Ochoa MD [...] stage 3 Atherosclerosis of coronary artery of chitimacha heart without angina pectoris Hyperlipidemia Lower extremity [...] signs. Back nontender. Movingall 4 extremities. 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 Calves nontender without edema or cords. [...] 78.1 H Lymph % (Auto) 10.1 L Evans % (Auto) 9.1 Eos % (Auto) 1.6 [...] at the right lung base. Reading Location: [place] [address] Chest x-ray, 2 views, AP and lateral, [...] Chronic anticoagulation Disposition Disposition: Acute Care Hospital [facility] What to do if you have Problems For any increased pain, shortness of breath, bleeding, nausea or vomiting, chestpain, or any unexpected problems, contact your Primary Care Provider. Call [facility] ([phone]) or report to the closest Emergency Room. Call 911 if necessary. 03/04/251925 <Electronically signed by Chris Ochoa MD> Cosigner Signature (if applicable): CC: Dr. Tonio Fajardo, ~ Signed [facility] Work Phone: 1(605) 112-655403-20-2025 Evaluation note* Diagnosis Onset Date Resolution Status [...] 2025 7:57pm Atherosclerosis of coronary artery of chitimacha heart without angina pectoris chronic March 04, 2025 7:57pm CHF exacerbation chronic February 7:57pm [facility] Work Phone: 1(694) 700-433603-13-2025 Radiology Diagnostic study note [facility] Imaging Services [address] [place] [address] CT Chest AND Abd W/ Contrast MR#: [id number] Acct: [id number] Name: PEDRO HILLMAN Rep #: [id number] : 1945 M 79 From: Tom Flores MD PCP: Dr. Tonio Fajardo, DO Status: REG CLI Study:CT Chest AND Abd W/ Contrast Date of Ex am: 10/30/24 Exam# [id number] Ordering Dr: Frantz Zamora MD PROCEDURE: CT [...] use of iterative reconstruction technique). Reading Location: [facility] CC: Dr. Russ Zamora MD; Dr. Tonio Fajardo DO ~ Director Translational: Signed [facility]02-28-2025 Procedure notey [facility] Pulmonary Services/Neurology [address] [place] [address] MR#: [id number] Acct: [id number] Name: PEDRO HILLMAN Rep #:[id number] : 1945 79 From: Tyrell Uriarte DO Referring Dr: Lorie Mart FORGER HELPER FORGER HELPER-C Status: REG CLI Location: PSN Date: Sex: M C PSN 6 Minute Walk Test 6 Minute Walk Test 6 Minute Walk Test: 6 Minute Walk Test PSN:6-Minute Walk Test Start: 10/16/24 13:24 Freq: Status: Active Protocol: RESP.6MINW Document 10/16/24 13:24 [facility] (Rec: 10/16/24 13:34 [facility] [id number]) 6 Minute Walk Test Date Performed 10/16/24 Time Performed 12:30 Height 5 ft 6 in Weight: 174 lb Weight in Pounds 174.[address]: Lorie Mart FORGER HELPER Assistive device Walker used: Pre-test Oxygen Delivery [...] Date Dictated: 10/17/24 1004 Date Transcribed: 10/17/24 100 Director Translational: Dr. Tyrell Uriarte, DO Signed [facility]02-06-2025 Evaluation note* Diagnosis Onset Date Resolution [...] lobe of right lung chronic 2024 2:10pm [facility] Work Phone: 1(781) 267-469402-06-2025 Evaluation note* Diagnosis Onset Date Resolution Status [...] chronic Marlon h 2024 1:24pm [facility] Work Phone: 1(457) 201-346910-20-2023 Procedure [facility] 04-18-2023 Progress note Author Joaquim Suárez [facility] April 18, 2023 7:12pm Note Date/Time April 18, 2023 3: 56pm [facility] [address] [place] [address] Progress Note - Wound Care 04/18/23 1549 MR#: [id number] Acct: [id number] Name: PEDRO HILLMAN Rep #:[id number] : 1945 78 From: Joaquim BORJAS PCP: [...] Start: 04/02/23 11:22 Freq: Status: Active Protocol: .LOWEXT Activity Type Activity Date Activity User E-sign Co-sign Detail Recorded Client Recorded Date Recorded By Document 04/02/23 11:24 [id number] 04/02/23 11:25 Document 04/18/23 13:24 [facility] [id number] 04/18/23 13:30 [facility] 04/02/23 04/18/23 11:24 13:24 - Today's Visit Information Type of service Follow-up Visit Follow-up Visit (Physician/DISTRIBUTION A CLASS LINEMAN (Physician/DISTRIBUTION A CLASS LINEMAN ) ) Arrival Mode Ambulatory,Cane Ambulatory,Cane Transfer [...] Date Recorded By Document 04/18/23 13:24 [facility] [id number] 04/18/23 13:30 [facility] 04/18/23 13:24 Wound Center Nurse 1 [...] Attached -Granulation Amt Large (67-100%) -Granulation Quality Lafferty -Slough/Fibrin No -Necrosis Amt None Present (0 [...] Recorded Date Recorded By Document 04/02/23 11:42 [id number] 04/02/23 11:53 Document 04/18/23 14:03 [id number] 04/18/23 14:04 04/02/23 04/18/23 11:42 14:03 Wound [...] Recorded Date Recorded By Document 04/02/23 11:54 [id number] 04/02/23 11:54 Document 04/18/23 14:24 RB [id number] 04/18/23 14:25 RB 04/02/23 04/18/23 11:54 14:24 [...] Diabetes mellitus skilled nursing insulin use: with tank terminal gauger use Qualified Code(s): E11.42 - Type 2 diabetes mellitus with diabetic polyneuropathy; Z79.4 - technician terminal and repeater (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 of insulin PLAN: Educated the [...] (if applicable): CC: ~ Signed [facility] Work Phone: 1(691) 106-749508-20-2023 Progress note Author Bonny Glynn [facility] April 07, 2023 10:44pm Note Date/Time April 02, 2023 12 :35pm [facility] [address] [place] [address] Progress Note - Wound Care 04/02/23 1235 MR#: [id number] Acct: [id number] Name: PEDRO HILLMAN Rep #:[id number] : 1945 78 From: Bonny garcia FORGER HELPER FORGER HELPER-C PCP: Dr. Tonio Fajardo, DO Status:REG RCR [...] 11:24 04/02/23 11:24 Charges/Coding Procedures Integumentary 111xxx-113xx: 35562 Mihaela subq tissue 20 sq cm/< Debridement [...] Date Recorded By Document 04/02/23 11:24 PL [id number] 04/02/23 11:25 PL 04/02/23 11:24 - Today's Visit Information Type of service Follow-up Visit (Physician/DISTRIBUTION A CLASS LINEMAN ) Arrival Mode Ambulatory,Cane Transfer Assistance None [...] Date Recorded By Document 04/02/23 11:42 DORA [id number] 04/02/23 11:53 DORA 04/02/23 11:42 Wound Center [...] Recorded Date Recorded By Document 04/02/23 11:54 [id number] 04/02/23 11:54 04/02/23 11:54 Wound Care Center [...] that the wound center will have a technology sales representative, will have the patient see him for further evaluation and treatment. Follow up two weeks. Call or come in sooner if develop any questions or concerns. 04/07/23 3368 <Electronically signed by Bonny Glynn NP FORGER HELPER-C> Cosigner Signature (if applicable): CC: ~ Signed [facility] Work Phone: 1(632) 484-398307-17-2023 Progress note Author Bonny Glynn [facility] March 05, 2023 1:06pm Note Date/Time March 05, 2023 12:2 9pm [facility] [address] [place] [address] Progress Note - Wound Care 03/05/23 1226 MR#: [id number] Acct: [id number] Name: PEDRO HILLMAN Rep #:[id number] : 1945 78 From: Bonny garcia FORGER HELPER FORGER HELPER-C PCP: Dr. Tonio Fajardo, DO Status:REG RCR [...] Method Room Air Charges/Coding Procedures Integumentary 111xxx-113xx: 98128 Mihaela subq tissue 20 sq cm/< Debridement [...] Recorded Date Recorded By Document 02/19/23 13:34 [id number] 02/19/23 13:36 JF Document 03/05/23 11:26 KW [id number] 03/05/23 11:29 KW 02/19/23 03/05/23 13:34 11:26 - Today's Visit Information Type of service Follow-up Visit Follow-up Visit (Physician/DISTRIBUTION A CLASS LINEMAN (Physician/DISTRIBUTION A CLASS LINEMAN ) ) Arrival Mode Ambulatory Ambulatory,Cane Accompanied [...] Recorded Date Recorded By Document 02/19/23 13:34 [id number] 02/19/23 13:36 Document 03/05/23 11:26 [id number] 03/05/23 11:29 02/19/23 03/05/23 13:34 11:26 Wound [...] Large (67-100%) Small (1-33%) -Granulation Quality Red Lafferty -Slough/Fibrin No -Necrosis Amt Small (1-33%) -Structure [...] Recorded Date Recorded By Document 02/19/23 13:37 [id number] 02/19/23 13:39 Document 03/05/23 11:37 [id number] 03/05/23 11:46 JF 02/19/23 03/05/23 13:37 11:37 [...] Date Recorded By Document 02/19/23 13:43 MW [id number] 02/19/23 13:44 MW Document 03/05/23 11:53 [facility] [id number] 03/05/23 11:55 BM 02/19/23 03/05/23 13:43 11:53 [...] 1306 <Electronically signed by Bonny Glynn NP FORGER HELPER-C> Cosigner Signature (if applicable): CC: ~ Signed [facility] Work Phone: 1(346) 263-351307-03-2023 Progress note Author Bonny Glynn [facility] February 19, 2023 2:23pm Note Date/Time February 19, 2023 2:16p m [facility] [address] [place] [address] Progress Note - Wound Care 02/19/23 1412 MR#: [id number] Acct: [id number] Name: PEDRO HILLMAN Rep #:[id number] : 1945 78 From: Bonny garcia NP FORGER HELPER-C PCP: Dr. Tonio Fajardo, DO Status:REG RCR [...] 13:34 02/19/23 13:34 Charges/Coding Procedures Integumentary 111xxx-113xx: 22197 Mihaela subq tissue 20 sq cm/< Debridement [...] Date Recorded By Document 02/19/23 13:34 DORA [id number] 02/19/23 13:36 DORA 02/19/23 13:34 - Today's Visit Information Type of service Follow-up Visit (Physician/DISTRIBUTION A CLASS LINEMAN ) Arrival Mode Ambulatory Patient Requires Transmission-Based [...] Recorded Date Recorded By Document 02/19/23 13:34 [id number] 02/19/23 13:36 02/19/23 13:34 Wound Center Nurse [...] Recorded Date Recorded By Document 02/19/23 13:37 [id number] 02/19/23 13:39 02/19/23 13:37 Wound Center Nurse [...] Date Recorded By Document 02/19/23 13:43 MW [id number] 02/19/23 13:44 MW 02/19/23 13:43 Wound Care [...] 1423 <Electronically signed by Bonny Glynn NP FORGER HELPER-C> Cosigner Signature (if applicable): CC: ~ Signed [facility] Work Phone: 1(354) 366-540306-19-2023 Progress note Author Bonny Glynn [facility] February 05, 2023 2:37pm Note Date/Time February 05, 2023 1:59 pm [facility] [address] [place] [address] Progress Note - Wound Care 02/05/23 1359 MR#: [id number] Acct: [id number] Name: PEDRO HILLMAN Rep #:[id number] : 1945 78 From: Bonny garcia FORGER HELPER FORGER HELPER-C PCP: Dr. Tonio Fajardo, DO Status:REG RCR Location: History of Present Illness Date of Service: 02/05/23 Chief Complaint: right medial foot ulcer History of Wound: This 78-year-old male returns to the wound healing clinic for reoccurrence of a right medial foot ulcer. Wound care has been Moistened Cass covered with Hardwick SAP dressing. Patient diabetic neuropathic. Patient dealing [...] Method Room Air Charges/Coding Procedures Integumentary 111xxx-113xx: 02486 Mihaela subq tissue 20 sq cm/< Debridement [...] Date Recorded By Document 01/22/23 13:45 DL [id number] 01/22/23 13:48 DL Document 02/05/23 13:10 BMF [id number] 02/05/23 13:15 BMF 01/22/23 02/05/23 13:45 13:10 WC - Today's Visit Information Type of service Follow-up Visit Follow-up Visit (Physician/DISTRIBUTION A CLASS LINEMAN (Physician/DISTRIBUTION A CLASS LINEMAN ) ) Arrival Mode Ambulatory Ambulatory,Cane Transfer [...] Is Patient Pain Free? Yes Yes URBAN Johnson Nurse 1 - General Ulcer Measurement Start: 01/22/23 13:42 Freq: Status: Active Protocol: Activity Type Activity Date Activity User E-sign Co-sign Detail Recorded Client Recorded Date Recorded By Document 01/22/23 13:45 DL [id number] 01/22/23 13:48 DL Document 02/05/23 13:10 BM [id number] 02/05/23 13:15 BMF 01/22/23 02/05/23 13:45 13:10 [...] Present (0 Large (67-100%) %) -Granulation Quality Lafferty -Slough/Fibrin Yes -Necrosis Amt Small (1-33%) Small [...] Recorded Date Recorded By Document 01/22/23 14:22 [id number] 01/22/23 14:23 01/22/23 14:22 Wound Center Nurse [...] Recorded Date Recorded By Document 01/22/23 14:30 [id number] 01/22/23 14:31 Document 02/05/23 13:49 [facility] [id number] 02/05/23 13:49 [facility] 01/22/23 02/05/23 14:30 13:49 Wound Care [...] if develop any questions or concerns. 02/05/23 2091 <Electronically signed by Bonny Glynn NP FORGER HELPER-C> Cosigner Signature (if applicable): CC: ~ Signed [facility] Work Phone: 1(226) 397-608806-05-2023 Progress note Author Bonny Glynn [facility] January 22, 2023 3:47pm Note Date/Time January 22, 2023 3:31p m [facility] [address] [address] Progress Note - Wound Care 01/22/23 1529 MR#: [id number] Acct: [id number] Name: PEDRO HILLMAN Rep #:[id number] : 1945 78 From: Bonny garcia FORGER HELPER FORGER HELPER-C PCP: Dr. Tonio Fajardo, DO Status:REG RCR Location: History of Present Illness Date of Service: 01/22/23 Chief Complaint: right medial foot ulcer History of Wound: This 78-year-old male returns to the wound healing clinic for reoccurrence of a right medial foot ulcer. Wound care has been Moistened Cass covered with Hardwick SAP dressing. Patient diabetic neuropathic. Patient dealing [...] 13:45 01/22/23 13:45 Charges/Coding Procedures Integumentary 111xxx-113xx: 31200 Mihaela subq tissue 20 sq cm/< Debridement [...] Date Recorded By Document 01/22/23 13:45 DL [id number] 01/22/23 13:48 DL 01/22/23 13:45 WC - Today's Visit Information Type of service Follow-up Visit (Physician/DISTRIBUTION A CLASS LINEMAN ) Arrival Mode Ambulatory Transfer Assistance None [...] Date Recorded By Document 01/22/23 13:45 DL [id number] 01/22/23 13:48 DL 01/22/23 13:45 Wound Center [...] Date Recorded By Document 01/22/23 14:22 DORA [id number] 01/22/23 14:23 DORA 01/22/23 14:22 Wound Center [...] Date Recorded By Document 01/22/23 14:30 DL [id number] 01/22/23 14:31 DL 01/22/23 14:30 Wound Care [...] 1547 <Electronically signed by Bonny Glynn NP FORGER HELPER-C> Cosigner Signature (if applicable): CC: ~ Signed [facility] Work Phone: 1(587) 382-527005-22-2023 Progress note [facility] January 08, 2023 2:17pm Note Date/Time January 08, 2023 2:10p m [facility] [address] [place] [address] Progress Note - Wound Care 01/08/23 1407 MR#: [id number] Acct: [id number] Name: PEDRO HILLMAN Rep #:[id number] : 1945 77 From: Bonny garcia NP FORGER HELPER-C PCP: Dr. Tonio Fajardo, DO Status:REG RCR Location: History of Present Illness Date of Service: 01/08/23 Chief Complaint: right medial foot ulcer History of Wound: This 77-year-old male returns to the wound healing clinic for reoccurrence of a right medial foot ulcer. Wound care has been Moistened Cass covered with Hardwick SAP dressing. Patient diabetic neuropathic. Patient dealing [...] 14:53 01/08/23 13:37 Charges/Coding Procedures Integumentary 111xxx-113xx: 88267 Mihaela subq tissue 20 sq cm/< Debridement [...] Date Recorded By Document 12/18/22 13:20 PL [id number] 12/18/22 13:27 PL Document 12/25/22 14:53 [id number] 12/25/22 14:54 Document 01/08/23 13:37 [place] [id number] 01/08/23 13:39 AK 12/18/22 12/25/22 01/08/23 13:20 14:53 13:37 - Today's Visit Information Type of service Follow-up Visit Follow-up Visit Follow-up Visit (Physician/DISTRIBUTION A CLASS LINEMAN (Physician/DISTRIBUTION A CLASS LINEMAN (Physician/DISTRIBUTION A CLASS LINEMAN ) ) ) Arrival Mode Ambulatory Ambulatory [...] Date Recorded By Document 12/18/22 13:20 PL [id number] 12/18/22 13:27 PL Document 12/25/22 14:53 [id number] 12/25/22 14:54 Document 01/08/23 13:37 AK [id number] 01/08/23 13:39 AK 12/18/22 12/25/22 01/08/23 13:20 [...] (34-66%) Small (1-33%) Medium (34-66%) -Granulation Quality Lafferty Pale -Slough/Fibrin No Yes Yes -Necrosis Amt [...] Recorded Date Recorded By Document 12/18/22 13:51 [id number] 12/18/22 13:53 Document 12/25/22 15:00 [id number] 12/25/22 15:10 Document 01/08/23 14:01 [id number] 01/08/23 14:02 12/18/22 12/25/22 01/08/23 13:51 15:00 [...] Date Recorded By Document 12/18/22 14:07 PL [id number] 12/18/22 14:07 PL Document 12/25/22 15:20 DL [id number] 12/25/22 15:20 DL 12/18/22 12/25/22 14:07 15:20 [...] 1417 <Electronically signed by Bonny Glynn NP FORGER HELPER-C> Cosigner Signature (if applicable): CC: ~ Signed [facility] Work Phone: 1(321) 845-752905-14-[address] Ochoa [facility] December 31, 2022 12:58am Note Date/Time December 30, 2022 11:08 pm [facility] Medical Records Department [address] [place] [address] Emergency Department Summary 12/30/22 MR#: [id number] Acct: [id number] Name: PEDRO HILLMAN Rep #:[id number] : 1945 77 From: Chris Ochoa MD [...] History Anemia Atherosclerosis of coronary artery of [place]itimacha heart without angina pectoris BPH (benign prostatic [...] extremities. Nontender. No edema. No cellulitis. 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 Normal dorsi plantarflexion. Neurologically is awake [...] 83.3 H Lymph % (Auto) 6.4 L Evans % (Auto) 9.1 Eos % (Auto) 0.2 [...] Color Urine Clarity Urine pH Ur Specific [place] Urine Protein Urine Glucose (UA) Urine Ketones Urine Occult Blood Urine Nitrite Urine Bilirubin Urine Urobilinogen Ur Leukocyte Esterase Urine RBC Urine WBC Ur Squamous Epith Cells Urine Bacteria Urine Mucus 12/30/22 12/30/22 22:50 23:59 WBC RBC Hgb Hct MCV MCH MCHC RDW Std Deviation RDW Coeff of Reggie Plt Count MPV Immature Gran % (Auto) Neut % (Auto) Lymph % (Auto) Evans % (Auto) Eos % (Auto) Baso % [...] Clarity Clear Urine pH 7.0 Ur Specific [place] 1.005 Urine Protein 100 H Urine Glucose [...] 0:41 EDT Reading Location ID and State: [facility] / [place] Tel , Service support , Chest x-ray, [...] your Primary Care Provider. Call [facility] ([phone]) or report to the closest Emergency Room. Call 911 if necessary. 12/31/22 0058 <Electronically signed by Chris Ochoa MD> Cosigner Signature (if applicable): CC: Dr. Tonio Fajardo, ~ Signed [facility] Work Phone: 1(286) 678-341405-08-2023 Progress note Author Bonnyparris Glynn [facility] December 25, 2022 3:36pm Note Date/Time December 25, 2022 3:36pm [facility] [address] [place] [address] Progress Note - Wound Care 12/25/22 1531 MR#: [id number] Acct: [id number] Name: PEDRO HILLMAN Rep #:[id number] : 1945 77 From: Bonny garcia FORGER HELPER FORGER HELPER-C PCP: Dr. Tonio Fajardo DO Status:REG RCR Location: History of Present Illness Date of Service: 12/25/22 Chief Complaint: right medial foot ulcer History of Wound: This 77-year-old male returns to the wound healing clinic for reoccurrence of a right medial foot ulcer. Wound care has been Moistened Cass covered with Hardwick SAP dressing. Patient diabetic neuropathic. Patient dealing [...] 14:53 12/25/22 14:53 Charges/Coding Procedures Integumentary 111xxx-113xx: 45019 Mihaela subq tissue 20 sq cm/< Debridement [...] Start: 12/18/22 13:18 Freq: Status: Active Protocol: .ARCHIE Activity Type Activity Date Activity User E-sign Co-sign Detail Recorded Client Recorded Date Recorded By Document 12/18/22 13:20 KIM [id number] 12/18/22 13:27 PL Document 12/25/22 14:53 [id number] 12/25/22 14:54 DORA 12/18/22 12/25/22 13:20 14:53 - Today's Visit Information Type of service Follow-up Visit Follow-up Visit (Physician/DISTRIBUTION A CLASS LINEMAN (Physician/DISTRIBUTION A CLASS LINEMAN ) ) Arrival Mode Ambulatory Ambulatory Transfer [...] Date Recorded By Document 12/18/22 13:20 PL [id number] 12/18/22 13:27 PL Document 12/25/22 14:53 [id number] 12/25/22 14:54 12/18/22 12/25/22 13:20 14:53 Wound [...] Amt Medium (34-66%) Small (1-33%) -Granulation Quality Lafferty -Slough/Fibrin No Yes -Necrosis Amt Medium (34-66%) Large (67-100%) -Necrotic Tissue Type Adherent Slough Adherent Slough -Structure Exposed N/A -Texture (Anna-wound Skin Appearance) Assessed -Moisture (Anna-wound Skin Appearance) Assessed,Dry/ Scaly -Color (Anna-wound Skin Appearance) Assessed -Temperature (Nana-wound Skin No Abnormality No Abnormality Appearance) (Pt Warm) (Pt Warm) -Tenderness on Palpation (Anna-wound No Skin Appearance) -Ulcer Cleansing Rinsed/ Wound Cleanser Irrigated with Saline -Foul Odor after Cleansing No -Anesthetic Used 5% Lidocaine Gel Lower Limb Edema Present NA - Nurse 2 - General Ulcer CM Notes Start: 12/18/22 13:18 Freq: Status: Active Protocol: Activity Type Activity Date Activity User E-sign Co-sign Detail Recorded Client Recorded Date Recorded By Document 12/18/22 13:51 [id number] 12/18/22 13:53 Document 12/25/22 15:00 [id number] 12/25/22 15:10 12/18/22 12/25/22 13:51 15:00 Wound [...] Date Recorded By Document 12/18/22 14:07 PL [id number] 12/18/22 14:07 PL Document 12/25/22 15:20 DL [id number] 12/25/22 15:20 DL 12/18/22 12/25/22 14:07 15:20 [...] 1536 <Electronically signed by Bonny Glynn NP FORGER HELPER-C> Cosigner Signature (if applicable): CC: ~ Signed [facility] Work Phone: 1(197) 739-645005-01-2023 Progress note Author Bonnyparris Glynn [facility] December 18, 2022 2:23pm Note Date/Time December 18, 2022 2:23pm [facility] [address] [place] [address] Progress Note - Wound Care 12/18/22 1419 MR#: [id number] Acct: [id number] Name: PEDRO HILLMAN Nora Rep #:[id number] : 1945 77 From: Bonny garcia NP FORGER HELPER-C PCP: Dr. Tonio Fajardo, DO Status:REG RCR Location: History of Present Illness Date of Service: 12/18/22 Chief Complaint: right medial foot ulcer History of Wound: This 77-year-old male returns to the wound healing clinic for reoccurrence of a right medial foot ulcer. Wound care has been Moistened Cass covered with Hardwick SAP dressing. Patient diabetic neuropathic. Patient dealing [...] 13:20 12/18/22 13:20 Charges/Coding Procedures Integumentary 111xxx-113xx: 57544 Mihaela subq tissue 20 sq cm/< Debridement [...] Start: 12/18/22 13:18 Freq: Status: Active Protocol: URBAN.LOWMICHOACANOT Activity Type Activity Date Activity User E-sign Co-sign Detail Recorded Client Recorded Date Recorded By Document 12/18/22 13:20 PL [id number] 12/18/22 13:27 PL 12/18/22 13:20 - Today's Visit Information Type of service Follow-up Visit (Physician/DISTRIBUTION A CLASS LINEMAN ) Arrival Mode Ambulatory Transfer Assistance None [...] Date Recorded By Document 12/18/22 13:20 KIM [id number] 12/18/22 13:27 PL 12/18/22 13:20 Wound Center [...] Serosanguineous -Granulation Amt Medium (34-66%) -Granulation Quality Lafferty -Slough/Fibrin No -Necrosis Amt Medium (34-66%) -Necrotic [...] Date Recorded By Document 12/18/22 13:51 DORA [id number] 12/18/22 13:53 JF 12/18/22 13:51 Wound Center [...] Recorded Date Recorded By Document 12/18/22 14:07 [id number] 12/18/22 14:07 PL 12/18/22 14:07 Wound Care [...] 1423 <Electronically signed by Bonny Glynn NP FORGER HELPER-C> Cosigner Signature (if applicable): CC: ~ Signed [facility] Work Phone: 1(375) 723-142304-27-2023 Progress note Author Bonny Glynn [facility] December 14, 2022 2:56pm Note Date/Time December 11, 2022 3:2 7pm [facility] [address] [place] [address] Progress Note - Wound Care 12/11/22 1527 MR#: [id number] Acct: [id number] Name: PEDRO HILLMAN Rep #:[id number] : 1945 77 From: Bonny garcia NP FORGER HELPER-C PCP: Dr. Tonio Fajardo, DO Status:REG RCR Location: History of Present Illness Date of Service: 12/11/22 Chief Complaint: right medial foot ulcer History of Wound: This 77-year-old male returns to the wound healing clinic for reoccurrence of a right medial foot ulcer. Wound care has been Moistened Cass covered with Hardwick SAP dressing. Patient diabetic neuropathic. Patient dealing [...] Method Room Air Charges/Coding Procedures Integumentary 111xxx-113xx: 75469 Mihaela subq tissue 20 sq cm/< Debridement [...] Date Recorded By Document 11/20/22 14:43 DL [id number] 11/20/22 14:49 DL Document 11/27/22 14:25 BMF [id number] 11/27/22 14:27 BMF Document 12/06/22 11:35 DL [id number] 12/06/22 11:39 DL Document 12/11/22 13:12 [facility] [id number] 12/11/22 13:21 BMF 11/20/22 11/27/22 12/06/22 14:43 14:25 11:35 WC - Today's Visit Information Type of service Follow-up Visit Follow-up Visit (Physician/DISTRIBUTION A CLASS LINEMAN (Physician/DISTRIBUTION A CLASS LINEMAN ) ) Arrival Mode Ambulatory,Cane Ambulatory Transfer [...] Visit Information Type of service Follow-up Visit (Physician/DISTRIBUTION A CLASS LINEMAN ) Arrival Mode Ambulatory,Cane Transfer Assistance None [...] Date Recorded By Document 11/20/22 14:43 DL [id number] 11/20/22 14:49 DL Document 11/27/22 14:25 [facility] [id number] 11/27/22 14:27 BM Document 12/06/22 11:35 DL [id number] 12/06/22 11:39 DL Document 12/11/22 13:12 [facility] [id number] 12/11/22 13:21 BMF 11/20/22 11/27/22 12/06/22 14:43 [...] Amt Small (1-33%) Small (1-33%) -Granulation Quality Lafferty Pale -Slough/Fibrin -Necrosis Amt Small (1-33%) Small [...] Recorded Date Recorded By Document 11/20/22 15:00 [id number] 11/20/22 15:09 JF Edit Result 11/20/22 15:00 JF (1) [id number] 11/20/22 15:18 JF Edit Result 11/20/22 15:00 JF (2) [id number] 11/20/22 15:20 Document 11/27/22 14:50 [id number] 11/27/22 15:02 Document 12/06/22 11:46 [id number] 12/06/22 11:57 Document 12/11/22 13:30 [id number] 12/11/22 13:33 JF (1) #9 Right Inferior Hallux - [...] => 08/20/27 - Product Lot Number => [id number] - Percent Used => 100 - Lot number of Saline Used => [id number] 11/20/22 11/27/22 12/06/22 15:00 14:50 11:46 Wound [...] Date 08/20/27 08/20/27 09/20/27 -Product Lot Number [id number] 015 -Percent Used 100 100 100 -Lot number of Saline Used [id number] -Bleeding Controlled with Pressure Pressure Pressure -Treatment [...] Recorded Date Recorded By Document 11/20/22 15:35 [id number] 11/20/22 15:36 Document 11/27/22 15:02 [id number] 11/27/22 15:03 Document 12/06/22 11:57 [id number] 12/06/22 11:58 Document 12/11/22 13:57 [id number] 12/11/22 13:58 DL 11/20/22 11/27/22 12/06/22 15:35 [...] if develop any questions or concerns. 12/14/22 7025 <Electronically signed by Bonny Glynn NP FORGER HELPER-C> Cosigner Signature (if applicable): CC: ~ Signed [facility] Work Phone: 1([phone]) 174-687504-19-2023 Progress [facility] December 06, 2022 12:09pm Note Date/Time December 06, 2022 12: 09pm [facility] [address] [place] [address] Progress Note - Wound Care 12/06/22 1205 MR#: [id number] Acct: [id number] Name: PEDRO HILLMAN Rep #:[id number] : 1945 77 From: Bonny garcia NP FORGER HELPER-C PCP: Dr. Tonio Fajardo, DO Status:REG RCR Location: History of Present Illness Date of Service: 12/06/22 Chief Complaint: right medial foot ulcer History of Wound: This 77-year-old male returns to the wound healing clinic for reoccurrence of a right medial foot ulcer. Wound care has been Moistened Cass covered with Hardwick SAP dressing. Patient diabetic neuropathic. Patient dealing [...] 11:35 12/06/22 11:35 Charges/Coding Procedures Integumentary 150xxx-152xx: 13714 Skin sub graft face/nk/hf/g Debridement Note Debridement [...] Recorded Date Recorded By Document 11/20/22 14:43 [id number] 11/20/22 14:49 Document 11/27/22 14:25 [facility] [id number] 11/27/22 14:27 [facility] Document 12/06/22 11:35 DL [id number] 12/06/22 11:39 DL 11/20/22 11/27/22 12/06/22 14:43 14:25 11:35 - Today's Visit Information Type of service Follow-up Visit Follow-up Visit (Physician/DISTRIBUTION A CLASS LINEMAN (Physician/DISTRIBUTION A CLASS LINEMAN ) ) Arrival Mode Ambulatory,Cane Ambulatory Transfer [...] Date Recorded By Document 11/20/22 14:43 DL [id number] 11/20/22 14:49 DL Document 11/27/22 14:25 [facility] [id number] 11/27/22 14:27 [facility] Document 12/06/22 11:35 DL [id number] 12/06/22 11:39 DL 11/20/22 11/27/22 12/06/22 14:43 [...] Amt Small (1-33%) Small (1-33%) -Granulation Quality Lafferty Pale -Necrosis Amt Small (1-33%) Small (1-33%) [...] Recorded Date Recorded By Document 11/20/22 15:00 [id number] 11/20/22 15:09 Edit Result 11/20/22 15:00 JF (1) [id number] 11/20/22 15:18 JF Edit Result 11/20/22 15:00 (2) [id number] 11/20/22 15:20 Document 11/27/22 14:50 [id number] 11/27/22 15:02 Document 12/06/22 11:46 [id number] 12/06/22 11:57 (1) #9 Right Inferior Hallux [...] => 08/20/27 - Product Lot Number => [id number] - Percent Used => 100 - Lot number of Saline Used => [id number] 11/20/22 11/27/22 12/06/22 15:00 14:50 11:46 Wound [...] Date 08/20/27 08/20/27 09/20/27 -Product Lot Number [id number] 015 -Percent Used 100 100 100 -Lot number of Saline Used [id number] -Bleeding Controlled with Pressure Pressure Pressure -Treatment [...] Recorded Date Recorded By Document 11/20/22 15:35 [id number] 11/20/22 15:36 Document 11/27/22 15:02 [id number] 11/27/22 15:03 Document 12/06/22 11:57 [id number] 12/06/22 11:58 11/20/22 11/27/22 12/06/22 15:35 15:02 [...] if develop any questions or concerns. 12/06/22 6805 <Electronically signed by Bonny Glynn NP FORGER HELPER-C> Cosigner Signature (if applicable): CC: ~ Signed [facility] Work Phone: 1(668) 978-860304-11-2023 Progress note Author Bonny Glynn [facility] November 28, 2022 5:24pm Note Date/Time November 27, 2022 3:1 4pm [facility] [address] [place] [address] Progress Note - Wound Care 11/27/22 1513 MR#: [id number] Acct: [id number] Name: PEDRO HILLMAN Rep #:[id number] : 1945 77 From: Bonny garcia FORGER HELPER FORGER HELPER-C PCP: Dr. Tonio Fajardo, DO Status:REG RCR Location: History of Present Illness Date of Service: 11/27/22 Chief Complaint: right medial foot ulcer History of Wound: This 77-year-old male returns to the wound healing clinic for reoccurrence of a right medial foot ulcer. Wound care has been Moistened Cass covered with Hardwick SAP dressing. Patient diabetic neuropathic. Patient dealing [...] 14:43 11/27/22 14:25 Charges/Coding Procedures Integumentary 150xxx-152xx: 15328 Skin sub graft face/nk/hf/g Debridement Note Debridement [...] Date Recorded By Document 11/20/22 14:43 DL [id number] 11/20/22 14:49 DL Document 11/27/22 14:25 [facility] [id number] 11/27/22 14:27 BMF 11/20/22 11/27/22 14:43 14:25 WC - Today's Visit Information Type of service Follow-up Visit Follow-up Visit (Physician/DISTRIBUTION A CLASS LINEMAN (Physician/DISTRIBUTION A CLASS LINEMAN ) ) Arrival Mode Ambulatory,Cane Ambulatory Transfer [...] Is Patient Pain Free? Yes Yes URBAN Johnson Nurse 1 - General Ulcer Measurement Start: 11/20/22 14:43 Freq: Status: Active Protocol: Activity Type Activity Date Activity User E-sign Co-sign Detail Recorded Client Recorded Date Recorded By Document 11/20/22 14:43 DL [id number] 11/20/22 14:49 DL Document 11/27/22 14:25 BMF [id number] 11/27/22 14:27 BMF 11/20/22 11/27/22 14:43 14:25 [...] Thickened -Granulation Amt Small (1-33%) -Granulation Quality Lafferty -Necrosis Amt Small (1-33%) -Necrotic Tissue Type [...] Date Recorded By Document 11/20/22 15:00 JF [id number] 11/20/22 15:09 JF Edit Result 11/20/22 15:00 JF (1) [id number] 11/20/22 15:18 JF Edit Result 11/20/22 15:00 JF (2) [id number] 11/20/22 15:20 JF Document 11/27/22 14:50 [id number] 11/27/22 15:02 (1) #9 Right Inferior Hallux [...] => 08/20/27 - Product Lot Number => [id number] - Percent Used => 100 - Lot number of Saline Used => [id number] 11/20/22 11/27/22 15:00 14:50 Wound Center Nurse [...] -Expiration Date 08/20/27 08/20/27 -Product Lot Number [id number] -Percent Used 100 100 -Lot number of Saline Used [id number] -Bleeding Controlled with Pressure Pressure -Treatment Response [...] Date Recorded By Document 11/20/22 15:35 DL [id number] 11/20/22 15:36 DL Document 11/27/22 15:02 [id number] 11/27/22 15:03 11/20/22 11/27/22 15:35 15:02 Wound [...] sooner if develop any questions or concerns. 11/28/221723 <Electronically signed by Bonny Glynn NP FORGER HELPER-C> Cosigner Signature (if applicable): CC: ~ Signed [facility] Work Phone: 1(851) 933-362304-10-2023 Progress note Author Bonny Glynn [facility] November 26, 2022 10:29pm Note Date/Time November 20, 2022 4:18 pm [facility] [address] [place] [address] Progress Note - Wound Care 11/20/22 1618 MR#: [id number] Acct: [id number] Name: PEDRO HILLMAN Rep #:[id number] : 1945 77 From: Bonny Gillis ll FORGER HELPER FORGER HELPER-C PCP: Dr. Tonio Fajardo, DO Status:REG RCR Location: History of Present Illness Date of Service: 11/20/22 Chief Complaint: right medial foot ulcer History of Wound: This 77-year-old male returns to the wound healing clinic for reoccurrence of a right medial foot ulcer. Wound care has been Moistened Cass covered with Hardwick SAP dressing. Patient diabetic neuropathic. Patient dealing [...] 14:43 11/20/22 14:43 Charges/Coding Procedures Integumentary 150xxx-152xx: 19608 Skin sub graft face/nk/hf/g Debridement Note Debridement [...] Date Recorded By Document 11/20/22 14:43 DL [id number] 11/20/22 14:49 DL 11/20/22 14:43 - Today's Visit Information Type of service Follow-up Visit (Physician/DISTRIBUTION A CLASS LINEMAN ) Arrival Mode Ambulatory,Cane Transfer Assistance None [...] Date Recorded By Document 11/20/22 14:43 DL [id number] 11/20/22 14:49 DL 11/20/22 14:43 Wound Center Nurse 1 #9 Right Inferior Hallux -Current Size (cm) - Length 0.2 -Current Size (cm) - Width 0.3 -Current Size (cm) - Depth 0.2 -Total Square Cm 0.06 -Photo Taken No -Exudate Amt Small -Exudate Type Serosanguineous -Wound Margin Thickened -Granulation Amt Small (1-33%) -Granulation Quality Lafferty -Necrosis Amt Small (1-33%) -Necrotic Tissue Type [...] Recorded Date Recorded By Document 11/20/22 15:00 [id number] 11/20/22 15:09 JF Edit Result 11/20/22 15:00 JF (1) [id number] 11/20/22 15:18 JF Edit Result 11/20/22 15:00 JF (2) [id number] 11/20/22 15:20 JF (1) #9 Right Inferior [...] => 08/20/27 - Product Lot Number => [id number] - Percent Used => 100 - Lot number of Saline Used => [id number] 11/20/22 15:00 Wound Center Nurse 2 -Time [...] Disc -Expiration Date 08/20/27 -Product Lot Number [id number] -Percent Used 100 -Lot number of Saline Used [id number] -Bleeding Controlled with Pressure -Treatment Response Procedure [...] Date Recorded By Document 11/20/22 15:35 DL [id number] 11/20/22 15:36 DL 11/20/22 15:35 Wound Care [...] 11/26/222228 <Electronically signed by Bonny Glynn NP FORGER HELPER-C> Cosigner Signature (if applicable): CC: ~ Signed [facility] Work Phone: 1(124) 517-596602-21-2023 Progress note Author Bonny Glynn [facility] October 10, 2022 3:29pm Note Date/Time October 09, 2022 4:10pm [facility] [address] [place] [address] Progress Note - Wound Care 10/09/22 1609 MR#: [id number] Acct: [id number] Name: PEDRO HILLMAN Rep #:[id number] : 1945 77 From: Bonny garcia NP FORGER HELPER-C PCP: Dr. Tonio Fajardo, DO Status:REG RCR Location: History of Present Illness Date of Service: 10/09/22 Chief Complaint: right foot ulcer History of Wound: This 77-year-old male returns to the wound healing clinic for reoccurrence of a right medial foot ulcer. Wound care has been Moistened Cass covered with Hardwick SAP dressing. Patient diabetic neuropathic. Patient dealing [...] Method Room Air Charges/Coding Procedures Integumentary 150xxx-152xx: 50397 Skin sub graft face/nk/hf/g Debridement Note Debridement [...] Start: 09/25/22 14:25 Freq: Status: Active Protocol: URBAN.LOWEXT Activity Type Activity Date Activity User E-sign Co-sign Detail Recorded Client Recorded Date Recorded By Document 09/25/22 14:25 BMF [id number] 09/25/22 14:32 BMF Document 10/02/22 13:28 ML [id number] 10/02/22 13:32 ML Document 10/09/22 12:59 DL [id number] 10/09/22 13:04 DL 09/25/22 10/02/22 10/09/22 14:25 13:28 12:59 WC - Today's Visit Information Type of service Follow-up Visit Follow-up Visit Follow-up Visit (Physician/DISTRIBUTION A CLASS LINEMAN (Physician/DISTRIBUTION A CLASS LINEMAN (Physician/DISTRIBUTION A CLASS LINEMAN ) ) ) Arrival Mode Ambulatory,Cane Cane [...] Date Recorded By Document 09/25/22 14:25 BMF [id number] 09/25/22 14:32 BMF Document 10/02/22 13:28 ML [id number] 10/02/22 13:32 ML Document 10/09/22 12:59 DL [id number] 10/09/22 13:04 DL 09/25/22 10/02/22 10/09/22 14:25 [...] (0 Large (67-100%) %) -Granulation Quality Red Lafferty -Slough/Fibrin Yes Yes -Necrosis Amt Small (1-33%) [...] Recorded Date Recorded By Document 09/25/22 14:42 [id number] 09/25/22 14:51 Document 10/02/22 14:14 [id number] 10/02/22 14:17 Document 10/09/22 13:17 [id number] 10/09/22 13:26 09/25/22 10/02/22 10/09/22 14:42 14:14 [...] Date 06/20/27 05/20/27 06/20/27 -Product Lot Number [id number] 026 -Percent Used 100 100 100 -Lot number of Saline Used [id number] -Bleeding Controlled with Pressure Pressure Pressure -Treatment [...] Recorded Date Recorded By Document 09/25/22 14:52 [id number] 09/25/22 14:53 Document 10/02/22 14:18 [id number] 10/02/22 14:19 09/25/22 10/02/22 14:52 14:18 Wound [...] positive for Staphylococcus epidermidis and GNR lactose crack off person. I spoke with his PCP, Dr Fajardo, who was made aware of the results and he said he would treat him from these results. Follow up one week. 10/10/22 1529 <Electronically signed by Bonny Glynn NP FORGER HELPER-C> Cosigner Signature (if applicable): CC: ~ Signed [facility] Work Phone: [phone]) 943-966702-14-2023 Progress note Author Bonny Glynn [facility] October 03, 2022 4:51pm Note Date/Time September 26, 2022 1 :17pm [facility] [address] [place] [address] Progress Note - Wound Care 09/25/22 1501 MR#: [id number] Acct: [id number] Name: PEDRO HILLMAN Rep #:[id number] : 1945 77 From: Bonny garcia NP FORGER HELPER-C PCP: Dr. Tonio Fajardo, DO Status:REG RCR Location: ADDENDUM by FARHEEN Glynn on 10/03/22 at 1651 Addendum [place] [address] Procedures Integumentary 150xxx-152xx: 35185 Skin sub graft face/nk/hf/g 10/03/22 1651<Electronically signed by Bonny Glynn NP FORGER HELPER-C> Cosigner Signature (if applicable): cc: ~* Signed History of Present Illness Date of Service: 09/25/22 Chief Complaint: right foot ulcer History of Wound: This 77-year-old male returns to the wound healing clinic for reoccurrence of a right medial foot ulcer. Wound care has been Moistened Cass covered with Hardwick SAP dressing. Patient diabetic neuropathic. Patient dealing [...] Method Room Air Charges/Coding Procedures Integumentary 150xxx-152xx: 78528 Skin sub graft trnk/arm/leg Debridement Note Debridement [...] Post-Debridement Measurements and Additional Note: Post-Debridement Measurements/Treatment [facility] Nurse 1 - General Ulcer Assessment Start: 09/25/22 14:25 Freq: Status: Active Protocol: URBAN.LOWMICHOACANOT Activity Type Activity Date Activity User E-sign Co-sign Detail Recorded Client Recorded Date Recorded By Document 09/25/22 14:25 [facility] [id number] 09/25/22 14:32 [facility] 09/25/22 14:25 - Today's Visit Information Type of service Follow-up Visit (Physician/DISTRIBUTION A CLASS LINEMAN ) Arrival Mode Ambulatory,Cane Transfer Assistance None [...] Date Recorded By Document 09/25/22 14:25 [facility] [id number] 09/25/22 14:32 [facility] 09/25/22 14:25 Wound Center Nurse 1 [...] Date Recorded By Document 09/25/22 14:42 DORA [id number] 09/25/22 14:51 DORA 09/25/22 14:42 Wound Center [...] Disc -Expiration Date 06/20/27 -Product Lot Number [id number] -Percent Used 100 -Lot number of Saline Used [id number] -Bleeding Controlled with Pressure -Treatment Response Procedure [...] Date Recorded By Document 09/25/22 14:52 DORA [id number] 09/25/22 14:53 DORA 09/25/22 14:52 Wound Care [...] if develop any questions or concerns. 09/26/22 5508 <Electronically signed by Bonny Glynn NP FORGER HELPER-C> Cosigner Signature (if applicable): CC: ~ Signed [facility] Work Phone: [phone]) 979-823502-14-2023 Progress note Author Bonny Glynn [facility] October 03, 2022 4:49pm Note Date/Time October 02, 2022 2:57pm [facility] [address] [place] [address] Progress Note - Wound Care 10/02/22 1457 MR#: [id number] Acct: [id number] Name: PEDRO HILLMAN Rep #:[id number] : 1945 77 From: Bonny Gillis ll FORGER HELPER FORGER HELPER-C PCP: Dr. Tonio Fajardo, DO Status:REG RCR Location: History of Present Illness Date of Service: 10/02/22 Chief Complaint: right foot ulcer History of Wound: This 77-year-old male returns to the wound healing clinic for reoccurrence of a right medial foot ulcer. Wound care has been Moistened Cass covered with Hardwick SAP dressing. Patient diabetic neuropathic. Patient dealing [...] Charges/Coding Visit Charges Office Visits / Consults: 55442 OV L3 Est (25 modifier) Procedures Integumentary 150xxx-152xx: 37363 Skin sub graft face/nk/hf/g Physical Exam Const [...] Start: 09/25/22 14:25 Freq: Status: Active Protocol: .ARCHIE Activity Type Activity Date Activity User E-sign Co-sign Detail Recorded Client Recorded Date Recorded By Document 09/25/22 14:25 [facility] [id number] 09/25/22 14:32 [facility] Document 10/02/22 13:28 ML [id number] 10/02/22 13:32 ML 09/25/22 10/02/22 14:25 13:28 - Today's Visit Information Type of service Follow-up Visit Follow-up Visit (Physician/DISTRIBUTION A CLASS LINEMAN (Physician/DISTRIBUTION A CLASS LINEMAN ) ) Arrival Mode Ambulatory,Cane Cane Transfer [...] Date Recorded By Document 09/25/22 14:25 [facility] [id number] 09/25/22 14:32 [facility] Document 10/02/22 13:28 ML [id number] 10/02/22 13:32 ML 09/25/22 10/02/22 14:25 13:28 [...] Recorded Date Recorded By Document 09/25/22 14:42 [id number] 09/25/22 14:51 Document 10/02/22 14:14 [id number] 10/02/22 14:17 09/25/22 10/02/22 14:42 14:14 Wound [...] -Expiration Date 06/20/27 05/20/27 -Product Lot Number [id number] -Percent Used 100 100 -Lot number of Saline Used [id number] -Bleeding Controlled with Pressure Pressure -Treatment Response [...] Recorded Date Recorded By Document 09/25/22 14:52 [id number] 09/25/22 14:53 Document 10/02/22 14:18 [id number] 10/02/22 14:19 09/25/22 10/02/22 14:52 14:18 Wound [...] they should go to the ED. 10/03/22 7559 <Electronically signed by Bonny Glynn NP FORGER HELPER-C> Cosigner Signature (if applicable): CC: ~ Signed [facility] Work Phone: 1(671) 706-826801-10-2023 Progress note Author Bonny Glynn [facility] August 29, 2022 3:36pm Note Date/Time August 29, 2022 2 :32pm [facility] [address] [place] [address] Progress Note - Wound Care 08/29/22 1429 MR#: [id number] Acct: [id number] Name: PEDRO HILLMAN Rep #:[id number] : 1945 77 From: Bonny garcia NP FORGER HELPER-C PCP: Dr. Tonio Fajardo, DO Status:REG RCR Location: History of Present Illness Date of Service: 08/29/22 Chief Complaint: right foot ulcer History of Wound: This 77-year-old male returns to the wound healing clinic for reoccurrence of a right medial foot ulcer. Wound care has been Moistened Cass covered with Hardwick SAP dressing. Patient diabetic neuropathic. Patient dealing [...] Method Room Air Charges/Coding Procedures Integumentary 111xxx-113xx: 96397 Mihaela subq tissue 20 sq cm/< Debridement [...] Date Recorded By Document 08/29/22 13:17 [facility] [id number] 08/29/22 13:22 [facility] 08/29/22 13:17 - Today's Visit Information Type of service Follow-up Visit (Physician/DISTRIBUTION A CLASS LINEMAN ) Arrival Mode Ambulatory,Cane Transfer Assistance None [...] Date Recorded By Document 08/29/22 13:17 [facility] [id number] 08/29/22 13:22 [facility] 08/29/22 13:17 Wound Center Nurse 1 [...] Recorded Date Recorded By Document 08/29/22 13:35 [id number] 08/29/22 13:40 DORA 08/29/22 13:35 Wound Center [...] Date Recorded By Document 08/29/22 13:47 DL [id number] 08/29/22 13:47 DL 08/29/22 13:47 Wound Care [...] help expedite wound healing. [facility] Epifix. Wound care - Silvercel as the primary dressing covered with Hardwick SAP (secondarydressing) daily after washing foot with [...] if develop any questions or concerns. 08/29/22 3586 <Electronically signed by Bonny BENSONC> Cosigner Signature (if applicable): CC: ~ Signed [facility] Work Phone: [phone]) 501-562912-16-2022 Miscellaneous Notes* Telephone Encounter - Liseth Ortiz [...] to call back and advise. Steven Rodriguez APRN.CNP documented in this encounterC[facility]22 Miscellaneous Notes* Telephone Encounter - Jenny Mock - 04/08/2022 2:56 PM EDT Notified pt of results, daughter will call to get information on restrictions. Jenny Mock * Telephone Encounter - Jenny Mock - 04/08/2022 9:18 AM EDT left message on machine to give call back, different number from pharmacy. [phone]. Jenny Mock * Telephone Encounter - Jenny Mock - 04/07/2022 5:48 PM EDT Unable to reach patient. Mailbox full/Mailbox not set up/ Number incorrect. Please try again later. Jenny Mock * Telephone Encounter - Sigrid Monroe LPN - 04/06/2022 6:48 PM EDT Still unable to reach patient and personnel arbitrator is spouse with same number.Sigrid Monroe LPN [...] this encounterCleveland Clinic Medina Hospital08-17-2022 NoteHNO ID: [id number] Author: Steven Rodriguez APRN.DISTRIBUTION A CLASS LINEMAN Service: ? Author Type: Nurse Practitioner Type: [...] - COVID WITH FLUA+B, ROUTINE Steven Rodriguez APRN.[facility]08-17-2022 NoteHNO ID: [id number] Author: Yuliana Olivera RT(R) Service: Nuclear Medicine Author Type: Technologist Type: [...] Yuliana Olivera RT(R) April 05, 2022 1:55 [facility]08-17-2022 Influenza virus A and B RNA and SARS-CoV-2 (COVID-19) N gene panel BRYAN+probe (Resp)COVID 19 RESULT: SARS-CoV-2 (Agent of COVID-19) Detected by RT-PCR or equivalent method. anatoly [employer] (YASMEEN)_EUA This test was developed and its performance characteristics determined by [facility] [place]. This test has been authorized by FDA under an Emergency Use Authorization (EUA). This test has been validated in accordance with the FDA's Guidance Document Policy for DiagnosticsTesting in Laboratories Certified to Perform High Complexity Testing under CLIA prior to Emergency use Authorization for Coronavirus Disease 2019 during the Public Health Emergency issued on October 18, 2019. Test performed by [facility], Musa Lee [facility] [place], [address] [place] [address]. INFLUENZA A PCR: Negative for Influenza A by RT-PCR INFLUENZA B PCR: Negative for Influenza B by RT-PCROhiohealth Van Wert HospitalComment on above: Performed By: #### [id number] #### [facility] CLIA [id number] [address] [place], [place] [address] [address] [place] [id number] Miscellaneous Notes* Telephone Encounter - Steven Rodriguez APRN.DISTRIBUTION A CLASS LINEMAN - 04/05/2022 2:58 PM EDT Radiology report faxed to patient's PCP Dr. Tonio Fajardo at [phone]. Confirmation of fax received. Patient was advised to call Dr. Fajardo today for a follow up appointment. Steven Rodriguez APRN.CNP documented in this encounterCleveland Clinic Med[facility] Hospital08-17-2022 Instructions* Patient Instructions* Steven Rodriguez APRN.CNP [...] - COVID WITH FLUA+B, ROUTINE Steven Rodriguez APRN.CNP documented in this encounterCleveland Clinic Med[facility]08-17-2022 History of Present illness Narrative* Steven Rodriguez APRN.CNP - 04/05/2022 2:03 PM EDT [...] - COVID WITH FLUA+B, ROUTINE Steven Rodriguez APRN.DISTRIBUTION A CLASS LINEMAN documented in this encounterCleveland Clinic [facility]08-17-2022 [...] 1:55 PM documented in this encounterUniversity Hospitals [facility] note Author Mala Sterling [facility] Note Date/Time March 09, 2025 2:58 pm [facility] Medical Records Department [address] [place] [address] Counseling Note - Pharmacy 03/09/25 1457 MR#: [id number] Acct: [id number] Name: PEDRO HILLMAN Rep #:[id number] : 1945 80 From: Mala Sterling PCP: Dr. 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 Venous insufficiency chronic Ulcer of right foot with fat layer exposed resolved [facility] Work Phone: Evaluation note* Diagnosis Onset [...] with fat layer exposed resolved [facility] Work Phone: Evaluation note* Diagnosis Onset [...] with fat layer exposed resolved [facility] Work Phone: Evaluation note* Diagnosis Onset [...] aortocoronary bypass graft 2013 chronic [facility] Work Phone: Evaluation note* Diagnosis Onset [...] with fat layer exposed resolved [facility] Work Phone: Evaluation note* Diagnosis Burning [...] dependence, cigarettes, in remission acute [facility] Work Phone: Evaluation note* Diagnosis Onset [...] with fat layer exposed resolved [facility] Work Phone: Evaluation note* Diagnosis Onset [...] with fat layer exposed resolved [facility] Work Phone: Evaluation note* Diagnosis Onset [...] lobe of right lung acute [facility] Work Phone: Evaluation note* Diagnosis Onset [...] lobe of right lung acute [facility] Work Phone: Evaluation note* Diagnosis Onset [...] lobe of right lung acute [facility] Work Phone: Evaluation note* Diagnosis Onset [...] aortocoronary bypass 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 [facility] Work Phone: Evaluation note* Diagnosis Onset [...] with fat layer exposed chronic [facility] Work Phone: Evaluation note* Diagnosis Onset [...] with fat layer exposed chronic [facility] Work Phone: Evaluation note* Diagnosis Onset [...] chronic Shortness of breath chronic [facility] Work Phone: Evaluation note* Diagnosis Onset [...] lobe of right lung chronic [facility] Work Phone: Evaluation note* Diagnosis Onset [...] lobe of right lung chronic [facility] Work Phone: Evaluation note* Diagnosis Onset [...] with fat layer exposed chronic [facility] Work Phone: Evaluation note* Diagnosis Onset [...] with fat layer exposed chronic [facility] Work Phone: Evaluation note* Diagnosis Onset [...] with fat layer exposed chronic [facility] Work Phone: Evaluation note* Diagnosis Onset [...] with fat layer exposed chronic [facility] Work Phone: Evaluation note* Diagnosis Onset [...] with fat layer exposed chronic [facility] Work Phone: Evaluation note* Diagnosis Onset [...] with fat layer exposed resolved [facility] Work Phone: Evaluation note* Diagnosis Onset [...] with fat layer exposed chronic [facility] Work Phone: Evaluation note* Diagnosis Onset [...] lobe of right lung chronic [facility] Work Phone: Evaluation note* Diagnosis Onset Date Resolution Status Irregular heart rate acute COPD (chronic obstructive pulmonary disease) chronic 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 course Narrative No data available for this section [facility] Discharge instructions Additional Instructions Tylenol for fever. Plenty of fluids and rest today do not get dehydrated. Return if you are feeling a lot worse or too weak to get around her house. Follow-up with your doctor in the next several days to ensure you are improving. [facility] Work Phone: Hospital Discharge instructions Additional Instructions 1. Keep your postoperative dressing clean dry and intact 2. Continue strict glycemic control. 3. Partial weightbearing to heel with surgical shoe, use walker or crutches 4. Reach out to Dr. Suárez with any questions or concerns and follow-up in 1 week in clinic. Im[facility]?: [facility] Work Phone: Reason for referral (narrative)No reason for referral information availableWOhioHealth [facility] Work Phone: Chief Complaint and Reason [...] 04 7:57pm Atherosclerosis of coronary artery of [place] heart without angina pectoris March 04, 2025 [...] 2025 7:57pm Atherosclerosis of coronary artery of [place] heart without angina pectoris March 04, 2025 [...] 15, 2025 4:56 pm 6 M FU/S/P [facility] 03/09March 17, 2025 12: 51pm Reason [...] 2025 7:57pm Atherosclerosis of coronary artery of [place] heart without angina pectoris March 04, 2025 [...] 15, 2025 4:56 pm 6 M FU/S/P [facility] 03/09March 17, 2025 12: 51pm atrial [...] 15, 2025 4:56 pm 6 M FU/S/P [facility] 03/09March 17, 2025 12: 51pm atrial [...] 2025 7:57pm Atherosclerosis of coronary artery of [place] heart without angina pectoris March 04, 2025 [...] 05, 2025 7:55pm Respiratory insufficiency April 05, 025 7:55pm Acute on chronic diastolic congestive [...] 15, 2025 4:56 pm 6 M FU/S/P [facility] 03/09March 17, 2025 12: 51pm atrial [...] 2025 7:57pm Atherosclerosis of coronary artery of [place] heart without angina pectoris March 04, 2025 [...] 2025 7:55pm DARIUSZ (acute kidney injury) April 05 025 7:55pm Chronic anticoagulation April 05 7:55pm Coronary artery disease April 05 7:55pm Elevated troponin April 05, 2025 7: 55pm 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 April 12, 2025 6:02pm Chief Complaint Admit Date AE CHF, ATRIAL FLUTTER; WITH RVR AND HOMA VATED March 04, 2025 7:57pm AE CHF, ATRIAL FLUTTER; WITH RVR AND HOMA VATED March 05, 2025 7:19am AE CHF, ATRIAL FLUTTER; WITH RVR AND HOAM VATED March 06, 2025 9:26am AE CHF, [...] 15, 2025 4:56 pm 6 M FU/S/P [facility] 03/09March 17, 2025 12: 51pm atrial [...] on mehdi today. April 12, 2025 6:02pm PNEUMONIA & HYDROPNEUMOTHORAX March 6:19pm SYNCOPE April 19, 2025 8: 21am Reason for Visit Admit Date Acute cystitis with hematuria March 04, 2025 7:57pm Atrial flutter with rapid ventricular re sponse March 04, 2025 7:57pm Chronic anticoagulation March 04, 2025 7:57pm Coronary artery disease March 04, 2025 7:57pm Diabetes March 04, 2025 7:57 pm Elevated troponin March 04, 2025 7:57 pm Mitral valve regurgitation March 04 7:57pm Other persistent atrial fibrillation Lev 2024 7:57pm Overweight (BMI 25.0-29.9) March 04 7:57pm Pleural effusion on right March 04 7:57pm Tricuspid valve regurgitation March 04, 2025 7:57pm Atherosclerosis of coronary artery of [place] heart without angina pectoris March 04, 2025 7:57pm CHF exacerbation March 04, 2025 7:57 pm Hypertension March 04, 2025 7:57 pm Acute on chronic diastolic congestive he art failure March 04, 2025 7:57pm Hyperkalemia March 04, 2025 7:57 pm Peripheral arterial disease March 04, 2 025 7:57pm Other persistent atrial fibrillation Lev y 2024 12:51pm Hyperlipidemia March 17, 2025 12:5 1pm Hypertension March 17, 2025 12:5 1pm Peripheral vascular occlusive disease Ju ly 2024 12:51pm Presence of aortocoronary bypass graft J shanda 2024 12:51pm Acute cystitis without hematuria April 05, 2025 7:55pm Chronic anticoagulation April 05 7:55pm Coronary artery disease April 05 7:55pm Elevated troponin April 05, 2025 7: 55pm Heart block AV complete April 05 7:55pm Overweight (BMI 25.0-29.9) April 05, 2025 7:55pm Respiratory insufficiency April 05, 2 025 7:55pm Chronic atrial fibrillation April 05, 2025 7:55pm CKD (chronic kidney disease), stage IV A ugust 2024 7:55pm Presence of aortocoronary bypass graft A ugust 2024 7:55pm Acute on chronic diastolic congestive he art failure April 05, 2025 7:55pm DARIUSZ (acute kidney injury) April 05, 2 025 7:55pm Hyperkalemia April 05, 2025 7: 55pm Heart block AV complete April 10 11:14am Presence of cardiac pacemaker March 11:14am Acute heart failure with pre served ejection fraction (HFpEF) April 10, 2025 6:33pm Acute respiratory failure with hypoxia A ugust 2024 6:33pm Atrial fibrillation April 10, 2025 6: [...] 6:33pm Hyperlipidemia April 10, 2025 6: 33pm DARIUSZ (acute kidney injury) April 10 025 6:33pm UTI (urinary tract infection) March 6:33pm Acute heart failure with pre served ejection fraction (HFpEF) April 17, 2025 6:19pm Acute respiratory failure with hypoxia A ugust 2024 6:19pm Atrial fibrillation April 17, 2025 6: 19pm BPH (benign prostatic hyperplasia) Augus t 2024 6:19pm Debility April 17, 2025 6: 19pm Pleural effusion April 17, 2025 6: 19pm Pneumonia April 17, 2025 6: 19pm Pneumothorax April 17, 2025 6: 19pm Tachy-brittany syndrome April 17, 2025 6 :19pm Type 2 diabetes mellitus with hyperglyce alecia April 17, 2025 6:19pm COPD (chronic obstructive pulmonary dise ase) April 17, 2025 6:19pm Hyperlipidemia April 17, 2025 6: 19pm Advance Directives Advance Directive Response Recorded Date/ Time Advance Directives No February 17 4 11:03am Living Will No February 17, 2014 1 1:03am Power of Cable Tender No February 17, 2014 11:03am Advance Directive Response Recorded Date/ Time Name of Medical Power of Cable Tender SON April 14, 2022 8:29am Advance Directives No February 17 4 11:03am Living Will No April 14 2 8:29am Power of Cable Tender Yes April 14 8:29am Advance Directive Response Recorded Date/ Time Name of Medical Power of Cable Tender SON April 14, 2022 7:29am Advance Directives No February 17 4 10:03am Living Will No April 14 2 7:29am Power of Cable Tender Yes April 14 7:29am Advance Directive Response Recorded Date/ Time Advance Directives No February 17 4 10:03am Living Will No April 14 2 7:29am Power of Cable Tender Yes April 14 7:29am Advance Directive Response Recorded Date/ Time Advance Directives No February 17 4 11:03am Living Will No April 14 8:29am Power of Cable Tender Yes April 14 8:29am Advance Directive Response Recorded Date/ Time Name of Medical Power of Cable Tender Gideon Calderon December 30, 2022 10:39pm Advance Directives No February 17 11:03am Living Will Yes December 30, 2022 1 0:39pm Power of Cable Tender Yes December 30, 2022 10:39pm Advance Directive Response Recorded Date/ Time Advance Directives No February 17 11:03am Living Will Yes December 30, 2022 1 0:39pm Power of Cable Tender Yes December 30, 2022 10:39pm Advance Directive Response Recorded Date/ Time Advance Directives No February 17 10:03am Living Will Yes December 30, 2022 9 :39pm Power of Cable Tender Yes December 30, 2022 9:39pm Advance Directive Response Recorded Date/ Time Living Will Yes December 30, 2022 1 0:39pm Power of Cable Tender Yes December 30, 2022 10:39pm Advance Directives No February 17 11:03am Advance Directive Response Recorded Date/ Time Living Will Yes December 30, 2022 1 0:39pm Do you have a Healthcare Power of Cable Tender? Yes December 30, 2022 10:39pm Living Will No April 14 8:29am Do you have a Healthcare Power of Cable Tender? Yes April 14, 2022 8:29am Advance Directives No February 17 11:03am Advance Directive Response Recorded Date/ Time Living Will No April 14 8:29am Do you have a Healthcare Pow er of Cable Tender? Yes April 14, 2022 8:29am Do you have a Healthcare Pow er of Cable Tender? Yes March 04, 2025 2:58pm Name of Medical Power of Cable Tender Ed Daja olmstead March 04, 2025 2:58pm Advance Directives No February 17 11:03am Advance Directive Response Recorded Date/ Time Do you have a Healthcare Power of Cable Tender? Yes March 04, 2025 9:11pm Name of Medical Power of Cable Tender Ed Daja olmstead March 04, 2025 2:58pm Advance Directives No February 17 11:03am Advance Directive Response Recorded Date/ Time Do you have a Healthcare Power of Cable Tender? Yes March 04, 2025 9:11pm Name of Medical Power of Cable Tender Ed Daja olmstead March 04, 2025 2:58pm Do you have a Healthcare Power of Cable Tender? Yes March 15, 2025 5:04pm Name of Medical Power of Cable Tender Ed Daja March 15, 2025 5:04pm Advance Directives No February 17 11:03am Advance Directive Response Recorded Date/ Time Do you have a Healthcare Pow er of Cable Tender? Yes March 04, 2025 9:11pm Name of Medical Power of Cable Tender Ed Daja olmstead March 04, 2025 2:58pm Do you have a Healthcare Pow er of Cable Tender? Yes April 05, 2025 4:49pm Do you have a Healthcare Pow er of Cable Tender? Yes March 15, 2025 5:04pm Name of Medical Power of Cable Tender Ed Daja March 15, 2025 5:04pm Advance Directives No February 17 11:03am Advance Directive Response Recorded Date/ Time Do you have a Healthcare Pow er of Cable Tender? Yes March 04, 2025 9:11pm Name of Medical Power of Cable Tender Ed Daja olmstead March 04, 2025 2:58pm Do you have a Healthcare Pow er of Cable Tender? Yes April 05, 2025 8:49pm Do you have a Healthcare Pow er of Cable Tender? Yes March 15, 2025 5:04pm Name of Medical Power of Cable Tender Ed Daja March 15, 2025 5:04pm Advance Directives No February 17 11:03am Advance Directive Response Recorded Date/ Time Do you have a Healthcare Pow er of Cable Tender? Yes March 04, 2025 9:11pm Name of Medical Power of Cable Tender Ed Daja olsmtead March 04, 2025 2:58pm Do you have a Healthcare Pow er of Cable Tender? Yes April 05, 2025 8:49pm Do you have a Healthcare Pow er of Cable Tender? Yes April 12, 2025 6:18pm Do you have a Healthcare Pow er of Cable Tender? Yes March 15, 2025 5:04pm Name of Medical Power of Cable Tender Ed Daja March 15, 2025 5:04pm Do you have a Healthcare Pow er of Cable Tender? Yes April 10, 2025 10:00pm Advance Directives No February 17 11:03am Advance Directive Response Recorded Date/ Time Do you have a Healthcare Pow er of Cable Tender? Yes March 04, 2025 9:11pm Name of Medical Power of Cable Tender Ed Daja olmstead March 04, 2025 2:58pm Do you have a Healthcare Pow er of Cable Tender? Yes April 05, 2025 8:49pm Do you have a Healthcare Pow er of Cable Tender? Yes April 12, 2025 6:18pm Do you have a Healthcare Pow er of Cable Tender? Yes March 15, 2025 5:04pm Name of Medical Power of Cable Tender Ed Daja March 15, 2025 5:04pm Do you have a Healthcare Pow er of Cable Tender? Yes April 10, 2025 10:00pm Do you have a Healthcare Pow er of Cable Tender? Yes April 17, 2025 6:20pm Name of Medical Power of Cable Tender Ed Daja April 17, 2025 6:20pm Do you have a Healthcare Pow er of Cable Tender? Yes April 19, 2025 8:42am Advance Directives No February 17 11:03am Health [...] Care Teams (unrecognized sec tion and content) Wool Dyer Relationship Specialty Start Date End Date Tonio Fajardo DO [address] [place] [address] PCP - General Family Practice 04/05/22 Wool Dyer Relationship Specialty Start Date End Date Tonio Fajardo DO [address] [place] [address] PCP - General Family Practice 04/05/22 Wool Dyer Relationship Specialty Start Date End Date Scotty Tonio Vasquez [address] [place] [address] PCP - General Family Practice 04/05/22 Wool Dyer Relationship Specialty Start Date End Date Scotty Tonio Ovalle DO [address] [address] PCP - General Family Medicine 04/05/22 Team Status: Active Member Role Status Dates Dr. Tonio Fajardo , DO Family Provider Active Dr. Tonio Fajardo , DO Primary Care Provider Active Team Status: Inactive Member Role Status Dates Dr. Tonio Fajardo , DO Primary Care Provider, Referrin g Provider Active Iker Rodriguez FORGER HELPER, FORGER HELPER-C Attending Provider Active Team Status: Inactive Member [...] Active Member Role Status Dates Dr. Tonio Fjaardo DO Primary Care Provider Active Bonny Glynn FORGER HELPER, FORGER HELPER-C Attending Pro vider, Referring Provider, Other Provider [...] DO Primary Care Provider Active Bonnyap PeresRenard FORGER HELPER, FORGER HELPER-C Attending Provider Active Team Status: Active Member Role Status Dates Dr. Tonio Fajardo DO Primary Care Provider Active Dr. Russ Zamora MD Attending Provider Active Team Status: Inactive Member Role Status Dates Dr. Tonio Fajardo DO Primary Care Provider Active Dr. Russ Zamora MD Attending Provider Active Team Status: Active Member Role Status Dates Dr. Tonio Fajardo DO Primary Care Provider Active Bonny Nora Renard FORGER HELPER, FORGER HELPER-C Attending Provider Active Team Status: Inactive Member Role Status Dates Dr. Tonio Fajardo DO Primary Care Provider Active Bonnyap PeresRenard FORGER HELPER, FORGER HELPER-C Attending Provider, Referri ng Provider Active Team Status: Inactive Member Role Status Dates Dr. Tonio Fajardo , DO Primary Care Provider, Referrin g Provider Active Dr. Tyrell Uriarte , DO Attending Provider Active Team Status: Active Member Role Status Dates Dr. Tonio Fajardo DO Primary Care Provider Active Bonnyap PeresRenard FORGER HELPER, FORGER HELPER-C Attending Provider, Other P rovider Active Team [...] Inactive Member Role Status Dates Dr. Tonio aFjardo , DO Primary Care Provider Active Dr. Russ Zamora MD Attending Provider, Referring Pro vider Active Team Status: Active Member Role Status Dates Dr. Tonio Fajardo DO Primary Care Provider, Referrin g Provider Active Bonnyap PeresRenard FORGER HELPER, FORGER HELPER-C Attending Provider Active Team Status: Inactive Member [...] Provider, Referrin g Provider Active Lorie Mart FORGER HELPER, FORGER HELPER-C Attending Provider Active Team Status: Inactive Member Role Status Dates Dr. Tonio Fajardo DO Primary Care Provider, Referrin g Provider Active Leslie Arriaga PA PA Attending Provider Active Team Status: Inactive Member Role Status Dates Dr. Tonio Fajardo DO Primary Care Provider Active Lorie Mart FORGER HELPER, FORGER HELPER-C Attending Provider, Referrin g Provider Active Team [...] Dr. Joaquim Suárez DPM Attending Provider Active Wool Dyer Relationship Specialty Start Date End Date Tonio Fajardo DO [address] [place] [address] PCP - General Family Medicine 04/05/22 Team [...] 2024 End: October 16, 2024 Lorie Mart FORGER HELPER, FORGER HELPER-C Attending Provider Active Start: October 16, 2024 End: October 16, 2024 Lorie Mart FORGER HELPER, FORGER HELPER-C Referring Provider Active Start: October 16, 2024 End: October 16, 2024 Team Status: Active Member Role Status Dates Dr. Tonio Fajardo DO Primary Care Provider Active Start: October 17, 2024 Lorie Mart FORGER HELPER, FORGER HELPER-C Referring Provider Active Start: October 17, 2024 Lorie Mart FORGER HELPER, FORGER HELPER-C Other Provider Active Start: October 17, 2024 [...] End: October 23, 2024 Lorie Mart NP, FORGER HELPER-C Attending Provider Active Start: October 23, 2024 [...] 2025 End: March 09, 2025 Iker Rodriguez FORGER HELPER, FORGER HELPER-C Other Provider Active Start : March 04, [...] Active Start: March 05, 2025 Dr. Nicola Lnidsey DO Other Provider Active Start: March 05, [...] Active Start: March 05, 2025 Iker Rodriguez FORGER HELPER, FORGER HELPER-C Other Provider Active Start : March 05, [...] Active Start: March 06, 2025 Iker Rodriguez FORGER HELPER, FORGER HELPER-C Other Provider Active Start : March 06, [...] Active Start: March 06, 2025 Iker Rodriguez FORGER HELPER, FORGER HELPER-C Other Provider Active Start : March 06, [...] Active Start: March 07, 2025 Iker Rodriguez FORGER HELPER, FORGER HELPER-C Other Provider Active Start : March 07, [...] Active Start: March 08, 2025 Iker Rodriguez FORGER HELPER, FORGER HELPER-C Other Provider Active Start : March 08, [...] Active Start: March 08, 2025 Iker Rodriguez FORGER HELPER, FORGER HELPER-C Other Provider Active Start : March 08, [...] Active Start : March 09, 2025 Dr. Cahgo Miller MD Other Provider Active Star t: [...] Active Start: March 09, 2025 Iker Rodriguez FORGER HELPER, FORGER HELPER-C Other Provider Active Start : March 09, [...] Active Start: March 09, 2025 Iker Rodriguez FORGER HELPER, FORGER HELPER-C Other Provider Active Start : March 09, [...] Provider Active Start: April 02, 2025 Carmelina Martineziver Referring Provider Active Start: April 02, 2025 Team Status: Inactive Member Role/Relationship Status Dates Dr. Tonio Fajardo DO Primary Care Provider Active Start: April 05, 2025 End: April 10, 2025 Dr. Ld Hayes DO Emergency Provider Active Start : April 05, 2025 End: April 10, 2025 Dr. Nicola Lindsey , DO Admit Provider Active Start: April 05, [...] Provider Active Start: April 10, 2025 Carol Suosa Attending Provider Active Start: A ugust 2024 [...] Inactive Member Role/Relationship Status Dates Dr. Tonio Fajadro DO Primary Care Provider Active Start: April [...] April 13, 2025 Dr. Daniel Brownlee DO Attending Provider Active Start: April 12, 2025 End: April 13, 2025 Dr. Daniel Brownlee DO Emergency Provider Active Start: April 12, 2025 End: April 13, 2025 Team Status: Inactive Member Role/Relationship Status Dates Dr. Tonio Fajardo DO Primary Care Provider Active Start: April 17, 2025 End: April 19, 2025 Dr. Valdez Olivo MD Admit Provider Active Star t: April 17, 2025 End: April 19, 2025 Dr. Valdez Olivo MD Attending Provider Active Start: April 17, 2025 End: April 19, 2025 Dr. Valdez Olivo MD Referring Provider Active Start: April 17, 2025 End: April 19, 2025 Team Status: Active Member Role/Relationship Status Dates Dr. Tonio Fajardo DO Primary Care Provider Active Start: April 19, 2025 Dr. Casper Iniguez DO Emergency Provider Active Start: April 19, 2025 (unrecognized sect ion and content) No Status Records FoundNo Status Records FoundNo Status Records Found INFORMATION SOURCE (unrecogn ized section and content) DATE CREATED AUTHOR 08/12/2022 [facility] DATE CREATED AUTHOR AUTHOR'S ORGANIZ ATION 04/17/2025 [facility] DATE CREATED AUTHOR AUTHOR'S ORGANIZ ATION 04/19/2025 [facility] FOR RECORDS PERTAINING TO PATIENTS WHO ARE [...] BE BASED ON THE PRIMARY CLINICAL RECORDS. [facility] [employer] [facility]. provides no warranty or guarantee of the accuracy or completeness of information in this document.
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
[2025-04-19 11:26] LABS: Troponin T High Sens 2 HR 95 ng/L (<=22)
[2025-04-19 11:27] LABS: Magnesium 2.1 mg/dL (1.5-2.2); Pro- Brain NATRIURETIC PEPTIDE 3388 pg/mL (<=1800)
[2025-04-19] MEDS: Lactated Ringers 1,000 ML 125 ML IV (12:08)
[2025-04-19 13:27] LABS: Troponin T High Sens 4 HR 93 ng/L (<=22)
[2025-04-19] MEDS: 0.9% Saline Lock 10 ML Syringe IV (17:07)
[2025-04-19] MEDS: APIXABAN 2.5 MG TABLET (WCH) PO (21:54)
[2025-04-19] MEDS: Metoprolol(XL)Succ 25 MG Tablet 12.5 MG PO (21:55)
[2025-04-19] MEDS: Insulin Glargine-YFGN 100 UNIT/ML Pen 20 UNIT SC (21:56)
[2025-04-20] VITALS (8 sets, daily range): BP systolic 83–132; BP diastolic 47–67; PULSE 99–102; RESP 16–18; TEMP 36.5–36.9; O2SAT 93–100
[2025-04-20 06:31] LABS: Hematocrit 29.4 % (40-54); Hemoglobin 9.1 g/dL (13.0-16.5); Mean Corp Hgb Conc 31.0 g/dL (32-36); Mean Corpuscular Volume 86.7 fL (80-94); Mean Platelet Vol. 11.0 fl (6.2-12.0); Platelet Count 192 K/mm3 (150-450); RBC Distribution Width CV 17.1 % (11.6-14.6); RBC Distribution Width SD 53.4 fl (35.1-43.9); Red Blood Count 3.39 M/mm3 (4.6-6.2); White Blood Count 9.9 K/mm3 (4.4-11.0)
[2025-04-20 06:56] LABS: Anion Gap 12 (5-15); BUN 37 mg/dL (4-19); BUN/Creat Ratio 22.4 RATIO (10-20); Calcium,Total 9.1 mg/dL (7.6-11.0); Carbon Dioxide 32.1 mmol/L (21.0-32.0); Chloride 91 mmol/L (98-108); Estimated Creatinine Clearance 32.22 ml/min (50-250); Glucose 154 mg/dL (70-99); Potassium 3.4 mmol/L (3.3-5.1)
[2025-04-20] MEDS: Metoprolol(XL)Succ 25 MG Tablet 12.5 MG PO ×2 (08:29→20:34)
[2025-04-20] MEDS: APIXABAN 2.5 MG TABLET (WCH) PO ×2 (08:29→20:35)
[2025-04-20] MEDS: 0.9% Normal Saline (500mL Bag) 500 ML 125 ML IV (10:47)
[2025-04-20] MEDS: 0.9% Saline Lock 10 ML Syringe IV ×2 (10:48→18:38)
--- OUTSIDE RECORDS SUMMARY | 2025-04-20 14:11 | XMS RPT_ITS | CCD ---
Author Organization [facility] Care Team Providers Care Cash Applications Associate Name Role Phone Dr. Tonio Fajardo Primary Care Provider [phone] Dr. Tonio Fajardo Referring Provider [phone] Issa Looney Attending Provider [phone] Tonio Fajardo DO Primary Care Provider Dr. Tyrell Uriarte Attending Provider [phone] Tonio Fajardo Primary Care Provider [phone] Dr. Tonio Fajardo Referring Provider Brittny BARGE ENGINEER, BARGE ENGINEER-C Lorie Attending Provider Dr. Russ Zamora Attending Provider Renard BARGE ENGINEER, BARGE ENGINEER-C Bonny E Attending Provider [phone] Renard BARGE ENGINEER, BARGE ENGINEER-C Bonny E Referring Provider [phone] Renard BARGE ENGINEER, BARGE ENGINEER-C Bonny E Other Provider Dr. Srini Choi Attending Provider Dr. Srini Choi Referring Provider Dr. Srini Choi Other Provider Dr. Mateo Shahid Attending Provider [phone] Issa Looney Attending Provider Dr. Kenyon Flroes Referring Provider Unava ilable Dr. Srini Choi Referring Provider Dr. Tevin Allen Attending Provider [phone] Dr. Tonio Fajardo Primary Care Provider [phone] Dr. Tonio Fajardo Referring Provider Dr. Tyrell Uriarte Attending Provider Dr. Issa Looney Attending Provider Dr. Kenyon Flores Referring Provider Unava mp Mart BARGE ENGINEER, BARGE ENGINEER-C Lorie Attending Provider Dr. Russ Zamora Attending Provider Renard BARGE ENGINEER, BARGE ENGINEER-C Bonny E Attending Provider Renard BARGE ENGINEER, BARGE ENGINEER-C Bonny E Referring Provider [phone] Renard BARGE ENGINEER, BARGE ENGINEER-C Bonny E Other Provider Dr. Srini Choi Attending Provider Dr. Srini Choi Referring Provider Dr. Srini Choi Other Provider Dr. Mateo Shahid Attending Provider [phone] Roof BARGE ENGINEER, BARGE ENGINEER-C Iker Stephens Attending Provider Tonio Fajardo DO Primary Care Provider STEVEN RODRIGUEZ Referring Unavailable TONIO FAJARDO Primary Care Unavailable TONIO FAJARDO Primary Care Unavailable Dr. Tonio Fajardo Primary Care Provider Dr. Tonio Fajardo Referring Provider Dr. Tonio Fajardo Primary Care Provider Renard BARGE ENGINEER, BARGE ENGINEER-C Bonny E Attending Provider Renard BARGE ENGINEER, BARGE ENGINEER-C Bonny E Referring Provider [phone] Renard BARGE ENGINEER, BARGE ENGINEER-C Bonny E Other Provider Dr. Tonio Fajardo Referring Provider Dr. Russ Zamora Attending Provider Dr. Tonio Fajardo Primary Care Provider Dr. Srini Choi Attending Provider Dr. Srini Choi Referring Provider Renard BARGE ENGINEER, BARGE ENGINEER-C Bonny E Attending Provider Renard BARGE ENGINEER, BARGE ENGINEER-C Bonny E Referring Provider Renard BARGE ENGINEER, BARGE ENGINEER-C Bonny E Other Provider Dr. Tonio Fajardo Referring Provider Dr. Russ Zamora Attending Provider Dr. Tonio Fajardo Primary Care Provider Renard BARGE ENGINEER, BARGE ENGINEER-C Bonny E Attending Provider [phone] Renard BARGE ENGINEER, BARGE ENGINEER-C Bonny E Referring Provider Renard BARGE ENGINEER, BARGE ENGINEER-C Bonny E Other Provider Dr. Tonio Fajardo Referring Provider Dr. Russ Zamora Attending Provider Dr. Srini Choi Attending Provider Dr. Tyrell Uriarte Attending Provider Dr. Tonio Fajardo Primary Care Provider Renard BARGE ENGINEER, BARGE ENGINEER-C Bonny E Attending Provider Renard BARGE ENGINEER, BARGE ENGINEER-C Bonny E Referring Provider Renard BARGE ENGINEER, BARGE ENGINEER-C Bonny E Other Provider Dr. Tonio Fajardo Primary Care Provider Renard BARGE ENGINEER, BARGE ENGINEER-C Bonny E Attending Provider Renard BARGE ENGINEER, BARGE ENGINEER-C Bonny E Referring Provider [phone] Renard BARGE ENGINEER, BARGE ENGINEER-C Bonny E Other Provider [phone] Dr. Tonio Fajardo Primary Care Provider Renard BARGE ENGINEER, BARGE ENGINEER-C Bonny E Attending Provider [phone] Renard BARGE ENGINEER, BARGE ENGINEER-C Bonny E Referring Provider [phone] Renard BARGE ENGINEER, BARGE ENGINEER-C Bonny E Other Provider Dr. Tonio Fajardo Referring Provider Dr. Tonio Fajardo Primary Care Provider Renard BARGE ENGINEER, BARGE ENGINEER-C Bonny E Attending Provider Renard BARGE ENGINEER, BARGE ENGINEER-C Bonny E Referring Provider Renard BARGE ENGINEER, BARGE ENGINEER-C Bonny E Other Provider Dr. Tonio Fajardo Primary Care Provider Renard BARGE ENGINEER, BARGE ENGINEER-C Bonny E Attending Provider Renard BARGE ENGINEER, BARGE ENGINEER-C Bonny E Referring Provider Renard BARGE ENGINEER, BARGE ENGINEER-C Bonny E Other Provider Dr. Tonio Fajardo Primary Care Provider Renard BARGE ENGINEER, BARGE ENGINEER-C Bonny E Attending Provider Renard BARGE ENGINEER, BARGE ENGINEER-C Bonny E Referring Provider [phone] Renard BARGE ENGINEER, BARGE ENGINEER-C Bonny E Other Provider Dr. Tonio Fajardo Referring Provider Dr. Russ Zamora Attending Provider Dr. Tonio Fajardo Primary Care Provider Renard BARGE ENGINEER, BARGE ENGINEER-C Bonny E Attending Provider Renard BARGE ENGINEER, BARGE ENGINEER-C Bonny E Referring Provider Renard BARGE ENGINEER, BARGE ENGINEER-C Bonny E Other Provider Dr. Francisco Javier Lozada Attending Provider Dr. Joaquim Suárez Referring Provider Dr. Tonio Fajardo Primary Care Provider Renard BARGE ENGINEER, BARGE ENGINEER-C Bonny E Attending Provider [phone] Renard BARGE ENGINEER, BARGE ENGINEER-C Bonny E Referring Provider Renard CAMPUZANO, BARGE ENGINEER-C Bonny Melendez Other Provider Dr. Tonio Fajardo Referring Provider Dr. Russ Zamora Attending Provider Dr. Francisco Javier Lozada Attending Provider Dr. Joaquim Suárez Referring Provider Dr. Tonio Fajardo Primary Care Provider Brittny BARGE ENGINEER, BARGE ENGINEER-C Lorie Attending Provider RICKIE Alejandra Attending Provider [...] Referring Provider Brittny CAMPUZANO-CLorie Attending Provider Brittny BARGE ENGINEER-C, Lorie Referring Provider Brittny BARGE ENGINEER-C, Lorie Other Provider [phone] Tyrell Uriarte DO Attending Provider [phone] Tonio Fajardo DO Attending Provider Sera STRATTON, Dr. Solano Attending Provider Sera STRATTON, Dr. Solano Referring Provider Scotty MCGEE, Dr. Elizalde Primary Care Provider [place] , Dr. Milligan Other Provider Scotty MCGEE, Dr. Elizalde Primary Care Provider Scotty MCGEE, Dr. Elizalde Referring Provider Sera STRATTON, Dr. Solano Attending Provider Sera STRATTON, Dr. Solano Referring Provider Don STRATTON, Dr. Perez Emergency Provider [phone] Lindsey DO, Dr. Petersen Admit Provider Unavail [...] Shadi STRATTON, Dr. Graham Other Provider Michael BARGE ENGINEER-C, Iker Stephens Other Provider Leslie Alejandra Other Provider Tadeo Fink Other Provider Grzegorz STRATTON, Dr. Leos Other Provider Peter STRATTON, Dr. Amador Attending Provider Jailyn STRATTON, Dr. Dorsey Attending Provider Florencio STRATTON, Dr. Johnson Emergency Provider [facility] , Dr. Elizalde Referring Provider Leslie Alejandra Attending Provider Florencio STRATTON, Dr. Johnson Attending Provider [facility] , Dr. Elizalde Attending Provider Leslie Alejandra Referring Provider Carmelina Parra Attending Provider Unavailable Carmelina Parra Referring Provider Unavailable Scotty DO, Dr. Elizalde Primary Care Provider Don STRATTON, Dr. Perez Emergency Provider Lindsey DO, Dr. Petersen Admit Provider Unavail able Lindsey DO, Dr. Petersen Other Provider Unavail able Grzegorz STRTATON, Dr. Leos Attending Provider Te STRATTON, Dr. [...] Provider Shadi STRATTON, Dr. Graham [facility] Other Provider Leslie Alejandra Other Provider Tadeo Fink Other Provider Grzegorz STRATTON, Dr. Leos Other Provider Peter STRATTON, Dr. Amador Attending Provider Jailyn STRATTON, Dr. Dorsey Attending Provider Florencio STRATTON, Dr. Johnson Attending Provider Florencio STRATTON, Dr. Johnson Emergency Provider Scotty MCGEE, Dr. Elizalde Referring Provider Leslie Alejandra Attending Provider Scotty MCGEE, Dr. Elizalde Attending Provider Leslie Alejandra Referring Provider [phone] Carmelina Parra Attending Provider Unavailable Carmelina Parra Referring Provider Unavailable Abigail MCGEE, Dr. Jaffe Emergency Provider Lindsey DO, Dr. Petersen Attending Provider Unav simona Looney MD, Dr. Parsons Attending Provider Manjit STRATTON, Dr. Mays Other Provider Dr. Nicola Roman MD Attending Provider Unavaila ismael Roman MD, Dr. Petersen Other Provider Unavailable Shadi STRATTON, Dr. Graham Attending Provider Carol Sousa Attending Provider Unavailable Geovani STRATTON, Dr. Valdez Lu Admit Provider Geovani STRATTON, Dr. Valdez Lu Attending Provider Dr. Daniel Brownlee DO Emergency Provider [phone] DR TONIO FAJARDO DO Primary Care Physician DR TUNG CAAL DO Attending Unavailable DR DAVID STERLING MD Admitting Unavailable KERMIT STRATTON, ABBI Strauss Consulting Unavailable DR TONIO FAJARDO DO Primary Care Unavailab Dr. Daniel Roe DO Attending Provider Geovani STRATTON, Dr. Valdez Lu Referring Provider Hira MCGEE, Dr. Shirley Emergency Provider Hira MCGEE, Dr. Shirley Emergency Provider Lady MCGEE, Dr. Ames Admit Provider Lady MCGEE, Dr. Ames Attending Provider Leslie Alejandra Referring Unavail able Scotty, Tonio Primary Care Unavailable Leslie Alejandra Attending Unavail able Brittny BARGE ENGINEER, Lorie Referring Unavailable Scotty, Tonio Primary Care Unavailable Brittny BARGE ENGINEER, Lorie Attending Unavailable Nicola Lindsey Admitting Unavailable Manjit, Jayaprakas Consulting Unavailable Nicola Roman Attending Unavailable Scotty, Tonio Primary Care Unavailable Nicola Lindsey Consulting Unavailable Grzegorz, Deric Consulting Unavailable Aayush, Issa Consulting Unavailable Nicola Lindsey Admitting Unavailable Manjit, Jayaprakas Consulting Unavailable Nicola Roman Attending Unavailable Scotty, Tonio Primary Care Unavailable Nicola Lindsey Consulting Unavailable Grzegorz, Deric Consulting Unavailable Nicloa Roman Consulting Unavailable Scotty, Tonio Primary Care Unavailable Valdez Olivo Chi Admitting Unavailable Valdez Olivo Chi Attending Unavailable Joaquim Suárez Attending Unavailable Joaquim Suárez Referring Unavailable Scotty, Tonio Primary Care Unavailable Joaquim Suárez Referring Unavailable Scotty, Tonio Primary Care Unavailable Joaquim Suárez Attending Unavailable Nicola Lindsey Admitting Unavailable Nicola Lindsey Consulting Unavailable Grzegorz, Deric Attending Unavailable Scotty, Tonio Primary Care Unavailable Amro, Ahmed Consulting Unavailable Jabri, Ahmad Consulting Unavailable Mostafa, Nicolette Consulting Unavailable Peter, Marjorie Consulting Unavailable Martin Vivas Consulting Unavailable Jose Lai Consulting Unavailable Aayush, [place] Consulting Unavailable Chago Miller Consulting Unavailable Willian Glaser Consulting Unavailable Orly Mitchell Consulting UnavailReinaldo Lima Consulting Unavailable Guy Hsuatore Consulting Unavailable Michael CAMPUZANO, Iker Stephens Consulting Unavailable Leslie Alejandra Consulting Unavail able Tadeo Thakkar Consulting Unavailable Leslie Alejandra Referring Unavail able Aayush, Issa Attending Unavailable Scotty, Tonio Primary Care Unavailable PraRuss stephens Referring Unavailable Russ Zamora Attending Unavailable Scotty, Tonio Primary Care Unavailable Prah Russ Referring Unavailable Prah, Russ Attending Unavailable Scotty, Tonio Primary Care Unavailable Scotty, Tonio Primary Care Unavailable Scotty, Tonio Attending Unavailable Scotty, Tonio Primary Care Unavailable Daniel Brownlee Attending Unavailable Scotty, Tonio Primary Care Unavailable Alex Matias Attending Unavailable Leslie Alejandra Attending Unavail able Corina DAMIAN, Leslie Cruz Referring Unavail able Scotty, Tonio Primary Care Unavailable AidaCarmelina Referring Unavailable AidaCarmelina Attending Unavailable Scotty, Tonio Primary Care Unavailable Prah, Russ Referring Unavailable Scotty, Tonio Primary Care Unavailable Russ Zamora Attending Unavailable Srini Choi Consulting Unavailable Aayush, Issa Consulting Unavailable Scotty, Tonio Primary Care Unavailable Carol Sousa Attending Unavailable Scotty, Tonio Referring Unavailable Corina DAMIAN, Leslie Cruz Attending Unavail able Scotty, Tonio Primary Care Unavailable Scotty, Tonio Referring Unavailable Brittny BARGE ENGINEERLorie Referring Unavailable Scotty, Tonio Primary Care Unavailable Brittny BARGE ENGINEER, Lorie Consulting Unavailable Tyrell Uriarte Attending Unavailable Scotty, Tonio Primary Care Unavailable Scotty, Tonio Attending Unavailable Scotty, Tonio Referring Unavailable Lynn Looneyl Attending Unavailable Kwaku Narayanan Consulting Unavailable Kwaku Narayanan Attending Unavailable Scotty, Tonio Primary Care Unavailable Kwaku Narayanan Admitting Unavailable Santos Hsu Attending Unavailable Nicola Lindsey Admitting Unavailable Scotty, Tonio Primary Care Unavailable Nicola Lindsey Consulting Unavailable Grzegorz Deric Attending Unavailable Amro, Ahmed Consulting Unavailable Jabri, Ahmad Consulting Unavailable Mostafa, Nicolette Consulting Unavailable Peter, Marjorie Consulting Unavailable Martin Vivas Consulting Unavailable Jose Lai Consulting Unavailable Aayush, Issa Consulting Unavailable Chago Miller Consulting Unavailable Willian Glaser Consulting Unavailable Orly Mitchell Consulting UnavailReinaldo Lima Consulting Unavailable Melbourne, Santos Consulting Unavailable Iker Rodriguez NP Consulting Unavailable Leslie Alejandra Consulting Unavail able Tadeo Thakkar Consulting Unavailable Deric Lantigua Consulting Unavailable Prah, Russ Attending Unavailable Tonio Fajardo Primary Care Unavailable Scotty, Tonio Referring Unavailable Carol Sousa Attending Unavailable Scotty, Tonio Primary Care Unavailable Scotty, Tonio Referring Unavailable Issa Looney Attending Unavailable Scotty, Tonio Primary Care Unavailable AayushIssa ponce Attending Unavailable Scotty, Tonio Primary Care Unavailable Corina DAMIAN, Leslie Cruz Attending Unavail able Scotty, Tonio Primary Care Unavailable Scotty, Tonio Referring Unavailable Scotty, Tonio Primary Care Unavailable Brittny BARGE ENGINEER, Lorie Attending Unavailable Scotty, Tonio Referring Unavailable Russ Zamora Attending Unavailable Scotty, Tonio Primary Care Unavailable Scotty, Tonio Referring Unavailable Marjorie Green Attending Unavailable Nicola Lindsey Attending Unavailable Nicola Lindsey Attending Unavailable Deric Lantigua Attending Unavailable Marjorie Green Attending Unavailable Scotty, Tonio Primary Care Unavailable Willian Glaser Attending Unavailable Xena, Tonio Attending Unavailable Scotty, Tonio Primary Care Unavailable Geovani Valdez Chi Attending Unavailable Geovani, Valdez Chi Referring Unavailable Geovani, Valdez Chi Admitting Unavailable Allergies Allergy Classification Reported Allergen(s) Allergy Type Date of Onset Reaction(s) Facility (20 sources) Ibuprofen; Translations: [IBUPROFEN] Drug Allergy [address] [facility] Work Phone: (1 source) Ibuprofen Drug Allergy 5 [facility] Medications Current Medications Medication Drug [...] 07-25-2023 Start: 04-14-2022 take 1 capsule by [facility] once daily as needed Docusate Sodium (Colace) 100 mg Capsule Active 100 MG PO DAILY NEEDED April 14, 2022 12:00am fish oil/borage/flax/om3,6,9 1 (OMEGA 3-6-9 COMPLEX ORAL) (5 sources) fish oil/borage/ flax/om3,6,9 1 (OMEGA 3-6-9 COMPLEX ORAL) Take by mouth. Active fish oil/borage/ flax/om3,6,9 1 (OMEGA 3-6-9 COMPLEX ORAL) Take by mouth. 0 Active Comment on above: Take by mouth. Fish,Bora,Flax Oils-Om3,6,9no1 ([place] 3-6-9) 1,200 mg Capsule (8 sources) Start: 11-02-2021 take 1 capsule by mouth twice daily Fish,Bora,Flax Oils-Om3,6,9no1 ([place] 3-6-9) 1,200 mg Capsule Active 1 CAP PO TWICE A DAY November 02, 2021 1:31pm Start: 11-02-2021 take 1 capsule by [facility] twice daily Fish,Bora,Flax Oils-Om3,6,9no1 ([place] 3-6-9) 1,200 mg Capsule Active 1 CAP PO TWICE A DAY November 02, 2021 12:00am furosemide 40 mg oral tablet (9 sources) Loop Diuretic Start: 04-13-2025 Lasix 40 [...] sources) beta-Adrenergic Josselyn Start: 04-01-2025 End: 04-17-2025 Start: 07-25-2023 End: 03-09-2025 Start: 07-25-2023 End: [...] 06-18-2013 End: 11-19-2019 Start: 06-18-2013 End: 11-19-2019 Multi-Braden (1 source) Start: 04-13-2025 take 1 [...] with device Active 1 NMA INHALATION daily October 23, 2024 1:00am Start: 07-25-2023 End: [...] tablet (20 sources) Start: 02-07-2014 End: 11-19-2019 [id number] 200 actuat albuterol 0.09 mg/actuat metered dose [...] with spacer amoxicillin 500 mg oral tablet (13 sources) Penicillin-class Antibacterial Start: 03-15-2025 End: 04-05-2025 [...] {tbl} PO TWICE A DAY 28 14 1 January 12, 2023 12:00am January 22, 2023 [...] End: 03-21-2017 cefdinir 300 mg oral capsule (8 sources) Cephalosporin Antibacterial Start: 04-08-2025 End: 04-17-2025 [...] on above: Take 1 capsule by mo ut three times daily for 10 days. ciprofloxacin [...] hydrochloride 120 mg extended release oral capsule (14 sources) Calcium Channel Josselyn Start: 03-09-2025 End: 04-08-2025 diphenhydrAMINE hydrochloride 25 mg oral capsule (20 sources) Histamine-1 Receptor Antagonist Start: 12-03-2013 End: 03-21-2017 doxycycline hyclate 100 mg oral capsule (18 sources) Tetracycline-class Drug Start: 04-01-2024 End: 09-25-2024 dutasteride 0.5 mg oral capsule (20 sources) 5-alpha Reductase Inhibitor Start: 08-25-2013 End: 11-26-2013 Eucerin topical cream (1 source) Start: 04-17-2025 Eucerin topica l cream Apply 1 katia, Topical, BID, 0 Refill(s), Cream, 71.6 Start Date: 04/17/25 Status: Ordered Medication Dispense Status: Completed Total Allowed Fills: 1 Fills Dispensed: 0 Fish Oil-Fat Acid Comb.8-Hb137 ([place] 3-6-9 1,200 Mg Softgel) 1,200 MG capsule (20 sources) Start: 12-03-2013 End: 03-21-2017 Fish Oil-Fat Acid Comb.8-Hb137 ([place] 3-6-9 1,200 Mg Softgel) 1,200 MG capsule Discontinued 1000 MG PO TWICE A DAY December 03, 2013 11:07am March 21, 2017 2:47pm Start: 12-03-2013 End: 03-21-2017 Fish Oil-Fat Acid Comb.8-Hb1 37 ([place] 3-6-9 1,200 Mg Softgel) 1,200 MG capsule Discontinued 1000 mg PO TWICE A DAY December 03, 2013 12:00am March 21, 2017 2:47pm Start: 12-03-2013 End: 03-21-2017 Fish Oil-Fat Acid Comb.8-Hb1 37 ([place] 3-6-9 1,200 Mg Softgel) 1,200 MG capsule Discontinued 1000 MG PO TWICE A DAY December 02, 2013 11:00pm March 21, 2017 1:47pm Start: 12-03-2013 End: 03-21-2017 Fish Oil-Fat Acid Comb.8-Hb1 37 ([place] 3-6-9 1,200 Mg Softgel) 1,200 MG capsule [...] capsule (9 sources) Start: 03-21-2017 End: 11-19-2019 FishColleena,Flax Oils-Om3,6,9n o1 1,200 MG capsule Discontinued March 21, 2017 12:00am November 19, 2019 3:48pm Xqnvavmmdrw-Znooaywox-Zdvody er (18 sources) Start: 02-15-2024 End: 09-25-2024 Start: 02-15-2024 End: 09-25-2024 Ceevxgkubcb-Kglnapgwz-Bfcsrj er (Trelegy Ellipta) 200-62.5-25 mcg blister with device Discontinued 1 NMA INHALATION DAILY 3 February 15, 2024 12:00am September 25, 2024 2:02pm Start: 02-15-2024 End: 09-25-2024 Ypkitxuuddq-Otcymaean-Vtcdlj er (Trelegy Ellipta) 200-62.5-25 mcg blister with [...] August 25, 2013 10:01am lactobacillus acidophilus 10 [id number] unt oral capsule (20 sources) Start: 05-24-2022 [...] 0.125 mg PO TWICE A DAY 90 July 01, [...] End: 08-25-2013 predniSONE 20 mg oral tablet (8 sources) Start: 04-08-2025 End: 04-17-2025 Problems Active [...] Coronary atherosclerosis; Translations: [Atherosclerotic heart disease of [place] coronary artery without angina pectoris] Onset: 04-10-2025 [...] Onset: 04-03-2025 03-06-2025 Chronic Hyperplasia of prostate (18 sources) Benign prostatic hyperplasia; Translations: [Benign prostatic hyperplasia without lower urinary tract symptoms] Onset: 04-13-2025 04-10-2025 Chronic Hypertension with complications and secondary hypertension (3 sources) 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; Translations: [Hypertensive heart and chronic kidney disease with heart failure and stage 1 through stage 4 chronic kidney disease, or unspecified chronic kidney disease] Onset: 04-13-2025 Chronic Immunizations and screening for infectious disease (20 sources) Infectious disease carrier; Translations: [Carrier of infectious disease, unspecified] Episodic Influenza (20 sources) Influenza due to Influenza A virus; Translations: [Influenza due to other identified influenza virus with other respiratory manifestations] 12-31-2022 Episodic Malaise and fatigue (20 sources) Asthenia; Translations: [Weakness] Onset: 04-19-2025 12-31-2022 Episodic Nutritional deficiencies (20 sources) Undernutrition; Translations: [Unspecified protein-calorie malnutrition] Chronic Osteoarthritis (5 sources) Osteoarthritis; Translations: [Osteoarthrosis, unspecified whether generalized or localized, lower leg] Onset: 04-14-2014 04-14-2014 Chronic Other aftercare (20 sources) Long-term current use of anticoagulant; Translations: [penitentiary (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 of anticoagulants] 03-04-2025 Episodic Other aftercare (13 sources) Long-term current use of drug therapy; Translations: [long term (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 of 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/antipl atelets] 03-15-2025 Episodic Other aftercare (1 source) penitentiary (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 of anticoagulants; Translations: [long term (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 of anticoagulants] Onset: 04-15-2025 Episodic Other circulatory disease (1 source) Other specified peripheral vascular diseases; Translations: [Other specified peripheral vascular diseases] Onset: 07-07-2024 Chronic Other circulatory disease (1 source) Orthostatic hypotension; Translations: [Orthostatic hypotension] Onset: 04-20-2025 Episodic Other diseases of veins and lymphatics (20 sources) Peripheral venous insufficiency; Translations: [Venous insufficiency (chronic) (peripheral)] 04-28-2020 Episodic Other diseases of veins and lymphatics (20 sources) Venous insufficiency (chronic) (peripheral); Translations: [Venous (peripheral) insufficiency, unspecified] Episodic Other hematologic conditions (19 sources) Increased serum protein level; Translations: [Abnormality [...] dyspnea] 07-25-2023 Episodic Other lower respiratory disease (19 sources) Nodule of lung; Translations: [Solitary pulmonary [...] [Hypoxemia] 10-23-2024 Episodic Other lower respiratory disease (20 sources) History of chronic obstructive airway disease; Translations: [Personal history of other diseases of the respiratory system] 03-04-2025 Episodic Other lower respiratory disease (18 sources) Respiratory insufficiency; Translations: [Other abnormalities of [...] 04-13-2025 03-04-2025 Episodic Other upper respiratory disease (13 sources) Anterior epistaxis; Translations: [Epistaxis] 03-15-2025 Episodic [...] caused by tuberculosis or sexually transmitted disease) (13 sources) Pneumonia; Translations: [Pneumonia, unspecified organism] Onset: 04-13-2025 04-13-2025 Episodic Residual codes; unclassified (20 sources) Edema of lower extremity; Translations: [Localized edema] 05-22-2020 Episodic Residual codes; unclassified (20 sources) Localized edema; Translations: [Localized edema] 12-21-2021 Episodic Residual codes; unclassified (20 sources) Localized edema; Translations: [Edema] Episodic Respiratory failure; insufficiency; arrest (adult) (17 sources) Chronic hypoxemic respiratory failure; Translations: [Chronic respiratory failure with hypoxia] Onset: 04-13-2025 03-15-2025 Chronic Respiratory failure; insufficiency; arrest (adult) (15 sources) Acute respiratory failure; Translations: [Acute respiratory failure with hypoxia] Onset: 04-19-2025 04-10-2025 Episodic Septicemia (except in labor) (2 sources) Sepsis; Translations: [Sepsis, unspecified organism] Onset: 04-13-2025 Episodic Substance-related disorders (20 sources) Tobacco dependence in remission; 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, cigarettes, in remission] Chronic Syncope (1 source) Syncope and collapse; Translations: [Syncope and collapse] Onset: 04-20-2025 Episodic Unclassified (1 source) Acute cough; Translations: [...] TO SCHEDULE YOUR APPOINTMENT. Unclassified (1 source) Peripheral arterial disease 04-13-2025 Unclassified (3 sources) Other persistent atrial fibrillation; Translations: [Other persistent atrial fibrillation] Onset: 04-03-2025 Unclassified (1 source) Chronic atrial fibrillation, unspecified; Translations: [Chronic atrial fibrillation, unspecified] Onset: 04-15-2025 Urinary tract infections (20 sources) Urinary tract [...] Metabolic Profile (BMP )on 05-09-2025 BUN Normal 4-19 [facility] Comment on above: Result Comment: Canc elled via OM: Order cancelled - Patient discharged Performed By: #### L 100.0100, L500.2500 ####[facility] [address] [place], [address] BUN/CRE Normal 10-20 [facility] Comment on above: Result Comment: Canc elled via OM: Order cancelled - Patient discharged Performed By: #### L 100.0100, L500.2500 ####[facility] [address] [place], [address] Calcium Normal 7.6-11.0 [facility] Comment on above: Result Comment: Canc elled via OM: Order cancelled - Patient discharged Performed By: #### L 100.0100, L500.2500 ####[facility] [address] [place], [address] CL Normal 98-108 [facility] Comment on above: Result Comment: Canc elled via OM: Order cancelled - Patient discharged Performed By: #### L 100.0100, L500.2500 ####[facility] [address] [place], [address] CO2 Normal 21.0-32.0 [facility] Comment on above: Result Comment: Canc elled via OM: Order cancelled - Patient discharged Performed By: #### L 100.0100, L500.2500 ####[facility] [address] [place], [address] CREAT,SERUM Normal 0.70-1.20 [facility] Comment on above: Result Comment: Canc elled via OM: Order cancelled - Patient discharged Performed By: #### L 100.0100, L500.2500 ####[facility] [address] [place], [address] eGFR Normal >60 [facility] Comment on above: Result Comment: Canc elled via OM: Order cancelled - Patient discharged Performed By: #### L 100.0100, L500.2500 ####[facility] [address] [place], [address] GAP Normal 5-15 [facility] Comment on above: Result Comment: Canc elled via OM: Order cancelled - Patient discharged Performed By: #### L 100.0100, L500.2500 ####[facility] [address] [place], [address] GLU Normal 70-99 [facility] Comment on above: Result Comment: Canc elled via OM: Order cancelled - Patient discharged Performed By: #### L 100.0100, L500.2500 ####[facility] [address] [place], [address] Potassium Normal 3.3-5.1 [facility] Comment on above: Result Comment: Canc elled via OM: Order cancelled - Patient discharged Performed By: #### L 100.0100, L500.2500 ####[facility] [address] [place], [address] Basic Metabolic Profile (BMP) Normal 133-145 [facility] Comment on above: Result Comment: Canc elled via OM: Order cancelled - Patient discharged Performed By: #### L 100.0100, L500.2500 ####[facility] [address] [place], [address] CBC W/Diff, Automatedon 09-2 0-2024 Absolute Neut Normal 2.0-7.7 [facility] Comment on above: Result Comment: Canc elled via OM: Order cancelled - Patient discharged Performed By: #### L 100.0100, L500.2500 ####[facility] [address] [place], [address] HCT Normal 40-54 [facility] Comment on above: Result Comment: Canc elled via OM: Order cancelled - Patient discharged Performed By: #### L 100.0100, L500.2500 ####[facility] [address] [place], [address] HGB Normal 13.0-16.5 [facility] Comment on above: Result Comment: Canc elled via OM: Order cancelled - Patient discharged Performed By: #### L 100.0100, L500.2500 ####[facility] [address] [place], [address] MCH Normal 27.0-32.0 [facility] Comment on above: Result Comment: Canc elled via OM: Order cancelled - Patient discharged Performed By: #### L 100.0100, L500.2500 ####[facility] [address] [place], [address] MCHC Normal 32-36 [facility] Comment on above: Result Comment: Canc elled via OM: Order cancelled - Patient discharged Performed By: #### L 100.0100, L500.2500 ####[facility] [address] [place], [address] MCV Normal 80-94 [facility] Comment on above: Result Comment: Canc elled via OM: Order cancelled - Patient discharged Performed By: #### L 100.0100, L500.2500 ####[facility] [address] [place], [address] NEUT% Normal 47-70 [facility] Comment on above: Result Comment: Canc elled via OM: Order cancelled - Patient discharged Performed By: #### L 100.0100, L500.2500 ####[facility] [address] [place], [address] PLT Normal 150-450 [facility] Comment on above: Result Comment: Canc elled via OM: Order cancelled - Patient discharged Performed By: #### L 100.0100, L500.2500 ####[facility] [address] [place], [address] RBC Normal 4.6-6.2 [facility] Comment on above: Result Comment: Canc elled via OM: Order cancelled - Patient discharged Performed By: #### L 100.0100, L500.2500 ####[facility] [address] [place], [address] RDW CV Normal 11.6-14.6 [facility] Comment on above: Result Comment: Canc elled via OM: Order cancelled - Patient discharged Performed By: #### L 100.0100, L500.2500 ####[facility] [address] [place], [address] RDW SD Normal 35.1-43.9 [facility] Comment on above: Result Comment: Canc elled via OM: Order cancelled - Patient discharged Performed By: #### L 100.0100, L500.2500 ####[facility] [address] [place], [address] WBC Normal 4.4-11.0 [facility] Comment on above: Result Comment: Canc elled via OM: Order cancelled - Patient discharged Performed By: #### L 100.0100, L500.2500 ####[facility] [address] [place], [address] Basic Metabolic Profile (BMP )on 05-08-2025 BUN Normal 4-19 [facility] Comment on above: Result Comment: Canc elled via OM: Order cancelled - Patient discharged Performed By: #### L 500.2500, L100.0100 ####[facility] [address] [place], [address] BUN/CRE Normal 10-20 [facility] Comment on above: Result Comment: Canc elled via OM: Order cancelled - Patient discharged Performed By: #### L 500.2500, L100.0100 ####[facility] [address] [place], [address] Calcium Normal 7.6-11.0 [facility] Comment on above: Result Comment: Canc elled via OM: Order cancelled - Patient discharged Performed By: #### L 500.2500, L100.0100 ####[facility] [address] [place], [address] CL Normal 98-108 [facility] Comment on above: Result Comment: Canc elled via OM: Order cancelled - Patient discharged Performed By: #### L 500.2500, L100.0100 ####[facility] [address] [place], [address] CO2 Normal 21.0-32.0 [facility] Comment on above: Result Comment: Canc elled via OM: Order cancelled - Patient discharged Performed By: #### L 500.2500, L100.0100 ####[facility] [address] [place], [address] CREAT,SERUM Normal 0.70-1.20 [facility] Comment on above: Result Comment: Canc elled via OM: Order cancelled - Patient discharged Performed By: #### L 500.2500, L100.0100 ####[facility] [address] [place], [address] eGFR Normal >60 [facility] Comment on above: Result Comment: Canc elled via OM: Order cancelled - Patient discharged Performed By: #### L 500.2500, L100.0100 ####[facility] [address] [place], [address] GAP Normal 5-15 [facility] Comment on above: Result Comment: Canc elled via OM: Order cancelled - Patient discharged Performed By: #### L 500.2500, L100.0100 ####[facility] [address] [place], [address] GLU Normal 70-99 [facility] Comment on above: Result Comment: Canc elled via OM: Order cancelled - Patient discharged Performed By: #### L 500.2500, L100.0100 ####[facility] [address] [place], [address] Potassium Normal 3.3-5.1 [facility] Comment on above: Result Comment: Canc elled via OM: Order cancelled - Patient discharged Performed By: #### L 500.2500, L100.0100 ####[facility] [address] [place], [address] Basic Metabolic Profile (BMP) Normal 133-145 [facility] Comment on above: Result Comment: Canc elled via OM: Order cancelled - Patient discharged Performed By: #### L 500.2500, L100.0100 ####[facility] [address] [place], [address] CBC W/Diff, Automatedon - Absolute Neut Normal 2.0-7.7 [facility] Comment on above: Result Comment: Canc elled via OM: Order cancelled - Patient discharged Performed By: #### L 500.2500, L100.0100 ####[facility] [address] [place], [address] HCT Normal 40-54 [facility] Comment on above: Result Comment: Canc elled via OM: Order cancelled - Patient discharged Performed By: #### L 500.2500, L100.0100 ####[facility] [address] [place], [address] HGB Normal 13.0-16.5 [facility] Comment on above: Result Comment: Canc elled via OM: Order cancelled - Patient discharged Performed By: #### L 500.2500, L100.0100 ####[facility] [address] [place], [address] MCH Normal 27.0-32.0 [facility] Comment on above: Result Comment: Canc elled via OM: Order cancelled - Patient discharged Performed By: #### L 500.2500, L100.0100 ####[facility] [address] [place], [address] MCHC Normal 32-36 [facility] Comment on above: Result Comment: Canc elled via OM: Order cancelled - Patient discharged Performed By: #### L 500.2500, L100.0100 ####[facility] [address] [place], [address] MCV Normal 80-94 [facility] Comment on above: Result Comment: Canc elled via OM: Order cancelled - Patient discharged Performed By: #### L 500.2500, L100.0100 ####[facility] [address] [place], [address] NEUT% Normal 47-70 [facility] Comment on above: Result Comment: Canc elled via OM: Order cancelled - Patient discharged Performed By: #### L 500.2500, L100.0100 ####[facility] [address] [place], [address] PLT Normal 150-450 [facility] Comment on above: Result Comment: Canc elled via OM: Order cancelled - Patient discharged Performed By: #### L 500.2500, L100.0100 ####[facility] [address] [place], [address] RBC Normal 4.6-6.2 [facility] Comment on above: Result Comment: Canc elled via OM: Order cancelled - Patient discharged Performed By: #### L 500.2500, L100.0100 ####[facility] [address] [place], [address] RDW CV Normal 11.6-14.6 [facility] Comment on above: Result Comment: Canc elled via OM: Order cancelled - Patient discharged Performed By: #### L 500.2500, L100.0100 ####[facility] [address] [place], [address] RDW SD Normal 35.1-43.9 [facility] Comment on above: Result Comment: Canc elled via OM: Order cancelled - Patient discharged Performed By: #### L 500.2500, L100.0100 ####[facility] [address] [place], [address] WBC Normal 4.4-11.0 [facility] Comment on above: Result Comment: Canc elled via OM: Order cancelled - Patient discharged Performed By: #### L 500.2500, L100.0100 ####[facility] [address] [place], [address] Basic Metabolic Profile (BMP )on 05-07-2025 BUN Normal 4-19 [facility] Comment on above: Result Comment: Canc elled via OM: Order cancelled - Patient discharged Performed By: #### L 500.2500, L100.0100 ####[facility] [address] [place], [address] BUN/CRE Normal 10-20 [facility] Comment on above: Result Comment: Canc elled via OM: Order cancelled - Patient discharged Performed By: #### L 500.2500, L100.0100 ####[facility] [address] [place], [address] Calcium Normal 7.6-11.0 [facility] Comment on above: Result Comment: Canc elled via OM: Order cancelled - Patient discharged Performed By: #### L 500.2500, L100.0100 ####[facility] [address] [place], [address] CL Normal 98-108 [facility] Comment on above: Result Comment: Canc elled via OM: Order cancelled - Patient discharged Performed By: #### L 500.2500, L100.0100 ####[facility] [address] [place], [address] CO2 Normal 21.0-32.0 [facility] Comment on above: Result Comment: Canc elled via OM: Order cancelled - Patient discharged Performed By: #### L 500.2500, L100.0100 ####[facility] [address] [place], [address] CREAT,SERUM Normal 0.70-1.20 [facility] Comment on above: Result Comment: Canc elled via OM: Order cancelled - Patient discharged Performed By: #### L 500.2500, L100.0100 ####[facility] [address] [place], [address] eGFR Normal >60 [facility] Comment on above: Result Comment: Canc elled via OM: Order cancelled - Patient discharged Performed By: #### L 500.2500, L100.0100 ####[facility] [address] [place], [address] GAP Normal 5-15 [facility] Comment on above: Result Comment: Canc elled via OM: Order cancelled - Patient discharged Performed By: #### L 500.2500, L100.0100 ####[facility] [address] [place], [address] GLU Normal 70-99 [facility] Comment on above: Result Comment: Canc elled via OM: Order cancelled - Patient discharged Performed By: #### L 500.2500, L100.0100 ####[facility] [address] [place], [address] Potassium Normal 3.3-5.1 [facility] Comment on above: Result Comment: Canc elled via OM: Order cancelled - Patient discharged Performed By: #### L 500.2500, L100.0100 ####[facility] [address], [address] Basic Metabolic Profile (BMP) Normal 133-145 [facility] Comment on above: Result Comment: Canc elled via OM: Order cancelled - Patient discharged Performed By: #### L 500.2500, L100.0100 ####[facility] [address], [address] CBC W/Diff, Automatedon 04-20 Absolute Neut Normal 2.0-7.7 [facility] Comment on above: Result Comment: Canc elled via OM: Order cancelled - Patient discharged Performed By: #### L 500.2500, L100.0100 ####[facility] [address] [place], [address] HCT Normal 40-54 [facility] Comment on above: Result Comment: Canc elled via OM: Order cancelled - Patient discharged Performed By: #### L 500.2500, L100.0100 ####[facility] [address] [place], [address] HGB Normal 13.0-16.5 [facility] Comment on above: Result Comment: Canc elled via OM: Order cancelled - Patient discharged Performed By: #### L 500.2500, L100.0100 ####[facility] [address], [address] MCH Normal 27.0-32.0 [facility] Comment on above: Result Comment: Canc elled via OM: Order cancelled - Patient discharged Performed By: #### L 500.2500, L100.0100 ####[facility] [address], [address] MCHC Normal 32-36 [facility] Comment on above: Result Comment: Canc elled via OM: Order cancelled - Patient discharged Performed By: #### L 500.2500, L100.0100 ####[facility] [address] [place], [address] MCV Normal 80-94 [facility] Comment on above: Result Comment: Canc elled via OM: Order cancelled - Patient discharged Performed By: #### L 500.2500, L100.0100 ####[facility] [address] [place], [address] NEUT% Normal 47-70 [facility] Comment on above: Result Comment: Canc elled via OM: Order cancelled - Patient discharged Performed By: #### L 500.2500, L100.0100 ####[facility] [address] [place], [address] PLT Normal 150-450 [facility] Comment on above: Result Comment: Canc elled via OM: Order cancelled - Patient discharged Performed By: #### L 500.2500, L100.0100 ####[facility] [address], [address] RBC Normal 4.6-6.2 [facility] Comment on above: Result Comment: Canc elled via OM: Order cancelled - Patient discharged Performed By: #### L 500.2500, L100.0100 ####[facility] [address], [address] RDW CV Normal 11.6-14.6 [facility] Comment on above: Result Comment: Canc elled via OM: Order cancelled - Patient discharged Performed By: #### L 500.2500, L100.0100 ####[facility] [address] [place], [address] RDW SD Normal 35.1-43.9 [facility] Comment on above: Result Comment: Canc elled via OM: Order cancelled - Patient discharged Performed By: #### L 500.2500, L100.0100 ####[facility] [address] [place], [address] WBC Normal 4.4-11.0 [facility] Comment on above: Result Comment: Canc elled via OM: Order cancelled - Patient discharged Performed By: #### L 500.2500, L100.0100 ####[facility] [address] [place], [address] Basic Metabolic Profile (BMP )on 05-06-2025 BUN Normal 4-19 [facility] Comment on above: Result Comment: Canc elled via OM: Order cancelled - Patient discharged Performed By: #### L 100.0100, L500.2500 ####[facility] [address] [place], [address] BUN/CRE Normal 10-20 [facility] Comment on above: Result Comment: Canc elled via OM: Order cancelled - Patient discharged Performed By: #### L 100.0100, L500.2500 ####[facility] [address] [place], [address] Calcium Normal 7.6-11.0 [facility] Comment on above: Result Comment: Canc elled via OM: Order cancelled - Patient discharged Performed By: #### L 100.0100, L500.2500 ####[facility] [address] [place], [address] CL Normal 98-108 [facility] Comment on above: Result Comment: Canc elled via OM: Order cancelled - Patient discharged Performed By: #### L 100.0100, L500.2500 ####[facility] [address] [place], [address] CO2 Normal 21.0-32.0 [facility] Comment on above: Result Comment: Canc elled via OM: Order cancelled - Patient discharged Performed By: #### L 100.0100, L500.2500 ####[facility] [address] [place], [address] CREAT,SERUM Normal 0.70-1.20 [facility] Comment on above: Result Comment: Canc elled via OM: Order cancelled - Patient discharged Performed By: #### L 100.0100, L500.2500 ####[facility] [address] [place], [address] eGFR Normal >60 [facility] Comment on above: Result Comment: Canc elled via OM: Order cancelled - Patient discharged Performed By: #### L 100.0100, L500.2500 ####[facility] [address] [place], [address] GAP Normal 5-15 [facility] Comment on above: Result Comment: Canc elled via OM: Order cancelled - Patient discharged Performed By: #### L 100.0100, L500.2500 ####[facility] [address] [place], [address] GLU Normal 70-99 [facility] Comment on above: Result Comment: Canc elled via OM: Order cancelled - Patient discharged Performed By: #### L 100.0100, L500.2500 ####[facility] [address] [place], [address] Potassium Normal 3.3-5.1 [facility] Comment on above: Result Comment: Canc elled via OM: Order cancelled - Patient discharged Performed By: #### L 100.0100, L500.2500 ####[facility] [address] [place], [address] Basic Metabolic Profile (BMP) Normal 133-145 [facility] Comment on above: Result Comment: Canc elled via OM: Order cancelled - Patient discharged Performed By: #### L 100.0100, L500.2500 ####[facility] [address] [place], [address] CBC W/Diff, Automatedon 09- Absolute Neut Normal 2.0-7.7 [facility] Comment on above: Result Comment: Canc elled via OM: Order cancelled - Patient discharged Performed By: #### L 100.0100, L500.2500 ####[facility] [address] [place], [address] HCT Normal 40-54 [facility] Comment on above: Result Comment: Canc elled via OM: Order cancelled - Patient discharged Performed By: #### L 100.0100, L500.2500 ####[facility] [address] [place], [address] HGB Normal 13.0-16.5 [facility] Comment on above: Result Comment: Canc elled via OM: Order cancelled - Patient discharged Performed By: #### L 100.0100, L500.2500 ####[facility] [address] [place], [address] MCH Normal 27.0-32.0 [facility] Comment on above: Result Comment: Canc elled via OM: Order cancelled - Patient discharged Performed By: #### L 100.0100, L500.2500 ####[facility] [address] [place], [address] MCHC Normal 32-36 [facility] Comment on above: Result Comment: Canc elled via OM: Order cancelled - Patient discharged Performed By: #### L 100.0100, L500.2500 ####[facility] [address] [place], [address] MCV Normal 80-94 [facility] Comment on above: Result Comment: Canc elled via OM: Order cancelled - Patient discharged Performed By: #### L 100.0100, L500.2500 ####[facility] [address] [place], [address] NEUT% Normal 47-70 [facility] Comment on above: Result Comment: Canc elled via OM: Order cancelled - Patient discharged Performed By: #### L 100.0100, L500.2500 ####[facility] [address], [address] PLT Normal 150-450 [facility] Comment on above: Result Comment: Canc elled via OM: Order cancelled - Patient discharged Performed By: #### L 100.0100, L500.2500 ####[facility] [address] [place], [address] RBC Normal 4.6-6.2 [facility] Comment on above: Result Comment: Canc elled via OM: Order cancelled - Patient discharged Performed By: #### L 100.0100, L500.2500 ####[facility] [address], [address] RDW CV Normal 11.6-14.6 [facility] Comment on above: Result Comment: Canc elled via OM: Order cancelled - Patient discharged Performed By: #### L 100.0100, L500.2500 ####[facility] [address] [place], [address] RDW SD Normal 35.1-43.9 [facility] Comment on above: Result Comment: Canc elled via OM: Order cancelled - Patient discharged Performed By: #### L 100.0100, L500.2500 ####[facility] [address] [place], [address] WBC Normal 4.4-11.0 [facility] Comment on above: Result Comment: Canc elled via OM: Order cancelled - Patient discharged Performed By: #### L 100.0100, L500.2500 ####[facility] [address] [place], [address] Basic Metabolic Profile (BMP )on 05-05-2025 BUN Normal 4-19 [facility] Comment on above: Result Comment: Canc elled via OM: Order cancelled - Patient discharged Performed By: #### L 500.2500, L100.0100 ####[facility] [address] [place], [address] BUN/CRE Normal 10-20 [facility] Comment on above: Result Comment: Canc elled via OM: Order cancelled - Patient discharged Performed By: #### L 500.2500, L100.0100 ####[facility] [address] [place], [address] Calcium Normal 7.6-11.0 [facility] Comment on above: Result Comment: Canc elled via OM: Order cancelled - Patient discharged Performed By: #### L 500.2500, L100.0100 ####[facility] [address] [place], [address] CL Normal 98-108 [facility] Comment on above: Result Comment: Canc elled via OM: Order cancelled - Patient discharged Performed By: #### L 500.2500, L100.0100 ####[facility] [address] [place], [address] CO2 Normal 21.0-32.0 [facility] Comment on above: Result Comment: Canc elled via OM: Order cancelled - Patient discharged Performed By: #### L 500.2500, L100.0100 ####[facility] [address] [place], [address] CREAT,SERUM Normal 0.70-1.20 [facility] Comment on above: Result Comment: Canc elled via OM: Order cancelled - Patient discharged Performed By: #### L 500.2500, L100.0100 ####[facility] [address] [place], [address] eGFR Normal >60 [facility] Comment on above: Result Comment: Canc elled via OM: Order cancelled - Patient discharged Performed By: #### L 500.2500, L100.0100 ####[facility] [address] [place], [address] GAP Normal 5-15 [facility] Comment on above: Result Comment: Canc elled via OM: Order cancelled - Patient discharged Performed By: #### L 500.2500, L100.0100 ####[facility] [address] [place], [address] GLU Normal 70-99 [facility] Comment on above: Result Comment: Canc elled via OM: Order cancelled - Patient discharged Performed By: #### L 500.2500, L100.0100 ####[facility] [address] [place], [address] Potassium Normal 3.3-5.1 [facility] Comment on above: Result Comment: Canc elled via OM: Order cancelled - Patient discharged Performed By: #### L 500.2500, L100.0100 ####[facility] [address] [place], [address] Basic Metabolic Profile (BMP) Normal 133-145 [facility] Comment on above: Result Comment: Canc elled via OM: Order cancelled - Patient discharged Performed By: #### L 500.2500, L100.0100 ####[facility] [address] [place], [address] CBC W/Diff, Automatedon 09-1 -2024 Absolute Neut Normal 2.0-7.7 [facility] Comment on above: Result Comment: Canc elled via OM: Order cancelled - Patient discharged Performed By: #### L 500.2500, L100.0100 ####[facility] [address] [place], [address] HCT Normal 40-54 [facility] Comment on above: Result Comment: Canc elled via OM: Order cancelled - Patient discharged Performed By: #### L 500.2500, L100.0100 ####[facility] [address] [place], [address] HGB Normal 13.0-16.5 [facility] Comment on above: Result Comment: Canc elled via OM: Order cancelled - Patient discharged Performed By: #### L 500.2500, L100.0100 ####[facility] [address] [place], [address] MCH Normal 27.0-32.0 [facility] Comment on above: Result Comment: Canc elled via OM: Order cancelled - Patient discharged Performed By: #### L 500.2500, L100.0100 ####[facility] [address] [place], [address] MCHC Normal 32-36 [facility] Comment on above: Result Comment: Canc elled via OM: Order cancelled - Patient discharged Performed By: #### L 500.2500, L100.0100 ####[facility] [address] [place], [address] MCV Normal 80-94 [facility] Comment on above: Result Comment: Canc elled via OM: Order cancelled - Patient discharged Performed By: #### L 500.2500, L100.0100 ####[facility] [address] [place], [address] NEUT% Normal 47-70 [facility] Comment on above: Result Comment: Canc elled via OM: Order cancelled - Patient discharged Performed By: #### L 500.2500, L100.0100 ####[facility] [address] [place], [address] PLT Normal 150-450 [facility] Comment on above: Result Comment: Canc elled via OM: Order cancelled - Patient discharged Performed By: #### L 500.2500, L100.0100 ####[facility] [address] [place], [address] RBC Normal 4.6-6.2 [facility] Comment on above: Result Comment: Canc elled via OM: Order cancelled - Patient discharged Performed By: #### L 500.2500, L100.0100 ####[facility] [address], [address] RDW CV Normal 11.6-14.6 [facility] Comment on above: Result Comment: Canc elled via OM: Order cancelled - Patient discharged Performed By: #### L 500.2500, L100.0100 ####[facility] [address] [place], [address] RDW SD Normal 35.1-43.9 [facility] Comment on above: Result Comment: Canc elled via OM: Order cancelled - Patient discharged Performed By: #### L 500.2500, L100.0100 ####[facility] [address] [place], [address] WBC Normal 4.4-11.0 [facility] Comment on above: Result Comment: Canc elled via OM: Order cancelled - Patient discharged Performed By: #### L 500.2500, L100.0100 ####[facility] [address] [place], [address] Basic Metabolic Profile (BMP )on 05-04-2025 BUN Normal 4-19 [facility] Comment on above: Result Comment: Canc elled via OM: Order cancelled - Patient discharged Performed By: #### L 500.2500, L100.0100 ####[facility] [address] [place], [address] BUN/CRE Normal 10-20 [facility] Comment on above: Result Comment: Canc elled via OM: Order cancelled - Patient discharged Performed By: #### L 500.2500, L100.0100 ####[facility] [address], [address] Calcium Normal 7.6-11.0 [facility] Comment on above: Result Comment: Canc elled via OM: Order cancelled - Patient discharged Performed By: #### L 500.2500, L100.0100 ####[facility] [address] [place], [address] CL Normal 98-108 [facility] Comment on above: Result Comment: Canc elled via OM: Order cancelled - Patient discharged Performed By: #### L 500.2500, L100.0100 ####[facility] [address] [place], [address] CO2 Normal 21.0-32.0 [facility] Comment on above: Result Comment: Canc elled via OM: Order cancelled - Patient discharged Performed By: #### L 500.2500, L100.0100 ####[facility] [address] [place], [address] CREAT,SERUM Normal 0.70-1.20 [facility] Comment on above: Result Comment: Canc elled via OM: Order cancelled - Patient discharged Performed By: #### L 500.2500, L100.0100 ####[facility] [address] [place], [address] eGFR Normal >60 [facility] Comment on above: Result Comment: Canc elled via OM: Order cancelled - Patient discharged Performed By: #### L 500.2500, L100.0100 ####[facility] [address] [place], [address] GAP Normal 5-15 [facility] Comment on above: Result Comment: Canc elled via OM: Order cancelled - Patient discharged Performed By: #### L 500.2500, L100.0100 ####[facility] [address] [place], [address] GLU Normal 70-99 [facility] Comment on above: Result Comment: Canc elled via OM: Order cancelled - Patient discharged Performed By: #### L 500.2500, L100.0100 ####[facility] [address] [place], [address] Potassium Normal 3.3-5.1 [facility] Comment on above: Result Comment: Canc elled via OM: Order cancelled - Patient discharged Performed By: #### L 500.2500, L100.0100 ####[facility] [address] [place], [address] Basic Metabolic Profile (BMP) Normal 133-145 [facility] Comment on above: Result Comment: Canc elled via OM: Order cancelled - Patient discharged Performed By: #### L 500.2500, L100.0100 ####[facility] [address] [place], [address] CBC W/Diff, Automatedon - Absolute Neut Normal 2.0-7.7 [facility] Comment on above: Result Comment: Canc elled via OM: Order cancelled - Patient discharged Performed By: #### L 500.2500, L100.0100 ####[facility] [address] [place], [address] HCT Normal 40-54 [facility] Comment on above: Result Comment: Canc elled via OM: Order cancelled - Patient discharged Performed By: #### L 500.2500, L100.0100 ####[facility] [address] [place], [address] HGB Normal 13.0-16.5 [facility] Comment on above: Result Comment: Canc elled via OM: Order cancelled - Patient discharged Performed By: #### L 500.2500, L100.0100 ####[facility] [address] [place], [address] MCH Normal 27.0-32.0 [facility] Comment on above: Result Comment: Canc elled via OM: Order cancelled - Patient discharged Performed By: #### L 500.2500, L100.0100 ####[facility] [address] [place], [address] MCHC Normal 32-36 [facility] Comment on above: Result Comment: Canc elled via OM: Order cancelled - Patient discharged Performed By: #### L 500.2500, L100.0100 ####[facility] [address] [place], [address] MCV Normal 80-94 [facility] Comment on above: Result Comment: Canc elled via OM: Order cancelled - Patient discharged Performed By: #### L 500.2500, L100.0100 ####[facility] [address] [place], [address] NEUT% Normal 47-70 [facility] Comment on above: Result Comment: Canc elled via OM: Order cancelled - Patient discharged Performed By: #### L 500.2500, L100.0100 ####[facility] [address] [place], [address] PLT Normal 150-450 [facility] Comment on above: Result Comment: Canc elled via OM: Order cancelled - Patient discharged Performed By: #### L 500.2500, L100.0100 ####[facility] [address] [place], [address] RBC Normal 4.6-6.2 [facility] Comment on above: Result Comment: Canc elled via OM: Order cancelled - Patient discharged Performed By: #### L 500.2500, L100.0100 ####[facility] [address] [place], [address] RDW CV Normal 11.6-14.6 [facility] Comment on above: Result Comment: Canc elled via OM: Order cancelled - Patient discharged Performed By: #### L 500.2500, L100.0100 ####[facility] [address] [place], [address] RDW SD Normal 35.1-43.9 [facility] Comment on above: Result Comment: Canc elled via OM: Order cancelled - Patient discharged Performed By: #### L 500.2500, L100.0100 ####[facility] [address] [place], [address] WBC Normal 4.4-11.0 [facility] Comment on above: Result Comment: Canc elled via OM: Order cancelled - Patient discharged Performed By: #### L 500.2500, L100.0100 ####[facility] [address] [place], [address] Basic Metabolic Profile (BMP )on 05-02-2025 BUN Normal 4-19 [facility] Comment on above: Result Comment: Canc elled via OM: Order cancelled - Patient discharged Performed By: #### L 500.2500, L100.0100 ####[facility] [address] [place], [address] BUN/CRE Normal 10-20 [facility] Comment on above: Result Comment: Canc elled via OM: Order cancelled - Patient discharged Performed By: #### L 500.2500, L100.0100 ####[facility] [address] [place], [address] Calcium Normal 7.6-11.0 [facility] Comment on above: Result Comment: Canc elled via OM: Order cancelled - Patient discharged Performed By: #### L 500.2500, L100.0100 ####[facility] [address] [place], [address] CL Normal 98-108 [facility] Comment on above: Result Comment: Canc elled via OM: Order cancelled - Patient discharged Performed By: #### L 500.2500, L100.0100 ####[facility] [address] [place], [address] CO2 Normal 21.0-32.0 [facility] Comment on above: Result Comment: Canc elled via OM: Order cancelled - Patient discharged Performed By: #### L 500.2500, L100.0100 ####[facility] [address] [place], [address] CREAT,SERUM Normal 0.70-1.20 [facility] Comment on above: Result Comment: Canc elled via OM: Order cancelled - Patient discharged Performed By: #### L 500.2500, L100.0100 ####[facility] [address] [place], [address] eGFR Normal >60 [facility] Comment on above: Result Comment: Canc elled via OM: Order cancelled - Patient discharged Performed By: #### L 500.2500, L100.0100 ####[facility] [address] [place], [address] GAP Normal 5-15 [facility] Comment on above: Result Comment: Canc elled via OM: Order cancelled - Patient discharged Performed By: #### L 500.2500, L100.0100 ####[facility] [address] [place], [address] GLU Normal 70-99 [facility] Comment on above: Result Comment: Canc elled via OM: Order cancelled - Patient discharged Performed By: #### L 500.2500, L100.0100 ####[facility] [address] [place], [address] Potassium Normal 3.3-5.1 [facility] Comment on above: Result Comment: Canc elled via OM: Order cancelled - Patient discharged Performed By: #### L 500.2500, L100.0100 ####[facility] [address] [place], [address] Basic Metabolic Profile (BMP) Normal 133-145 [facility] Comment on above: Result Comment: Canc elled via OM: Order cancelled - Patient discharged Performed By: #### L 500.2500, L100.0100 ####[facility] [address] [place], [address] CBC W/Diff, Automatedon 04-20 Absolute Neut Normal 2.0-7.7 [facility] Comment on above: Result Comment: Canc elled via OM: Order cancelled - Patient discharged Performed By: #### L 500.2500, L100.0100 ####[facility] [address] [place], [address] HCT Normal 40-54 [facility] Comment on above: Result Comment: Canc elled via OM: Order cancelled - Patient discharged Performed By: #### L 500.2500, L100.0100 ####[facility] [address] [place], [address] HGB Normal 13.0-16.5 [facility] Comment on above: Result Comment: Canc elled via OM: Order cancelled - Patient discharged Performed By: #### L 500.2500, L100.0100 ####[facility] [address] [place], [address] MCH Normal 27.0-32.0 [facility] Comment on above: Result Comment: Canc elled via OM: Order cancelled - Patient discharged Performed By: #### L 500.2500, L100.0100 ####[facility] [address] [place], [address] MCHC Normal 32-36 [facility] Comment on above: Result Comment: Canc elled via OM: Order cancelled - Patient discharged Performed By: #### L 500.2500, L100.0100 ####[facility] [address] [place], [address] MCV Normal 80-94 [facility] Comment on above: Result Comment: Canc elled via OM: Order cancelled - Patient discharged Performed By: #### L 500.2500, L100.0100 ####[facility] [address] [place], [address] NEUT% Normal 47-70 [facility] Comment on above: Result Comment: Canc elled via OM: Order cancelled - Patient discharged Performed By: #### L 500.2500, L100.0100 ####[facility] [address] [place], [address] PLT Normal 150-450 [facility] Comment on above: Result Comment: Canc elled via OM: Order cancelled - Patient discharged Performed By: #### L 500.2500, L100.0100 ####[facility] [address] [place], [address] RBC Normal 4.6-6.2 [facility] Comment on above: Result Comment: Canc elled via OM: Order cancelled - Patient discharged Performed By: #### L 500.2500, L100.0100 ####[facility] [address] [place], [address] RDW CV Normal 11.6-14.6 [facility] Comment on above: Result Comment: Canc elled via OM: Order cancelled - Patient discharged Performed By: #### L 500.2500, L100.0100 ####[facility] [address] [place], [address] RDW SD Normal 35.1-43.9 [facility] Comment on above: Result Comment: Canc elled via OM: Order cancelled - Patient discharged Performed By: #### L 500.2500, L100.0100 ####[facility] [address] [place], [address] WBC Normal 4.4-11.0 [facility] Comment on above: Result Comment: Canc elled via OM: Order cancelled - Patient discharged Performed By: #### L 500.2500, L100.0100 ####[facility] [address] [place], [address] Basic Metabolic Profile (BMP )on 04-25-2025 BUN Normal 4-19 [facility] Comment on above: Result Comment: Canc elled via OM: Order cancelled - Patient discharged Performed By: #### L 100.0100, L500.2500 ####[facility] [address] [place], [address] BUN/CRE Normal 10-20 [facility] Comment on above: Result Comment: Canc elled via OM: Order cancelled - Patient discharged Performed By: #### L 100.0100, L500.2500 ####[facility] [address] [place], [address] Calcium Normal 7.6-11.0 [facility] Comment on above: Result Comment: Canc elled via OM: Order cancelled - Patient discharged Performed By: #### L 100.0100, L500.2500 ####[facility] [address] [place], [address] CL Normal 98-108 [facility] Comment on above: Result Comment: Canc elled via OM: Order cancelled - Patient discharged Performed By: #### L 100.0100, L500.2500 ####[facility] [address] [place], [address] CO2 Normal 21.0-32.0 [facility] Comment on above: Result Comment: Canc elled via OM: Order cancelled - Patient discharged Performed By: #### L 100.0100, L500.2500 ####[facility] [address] [place], [address] CREAT,SERUM Normal 0.70-1.20 [facility] Comment on above: Result Comment: Canc elled via OM: Order cancelled - Patient discharged Performed By: #### L 100.0100, L500.2500 ####[facility] [address] [place], [address] eGFR Normal >60 [facility] Comment on above: Result Comment: Canc elled via OM: Order cancelled - Patient discharged Performed By: #### L 100.0100, L500.2500 ####[facility] [address] [place], [address] GAP Normal 5-15 [facility] Comment on above: Result Comment: Canc elled via OM: Order cancelled - Patient discharged Performed By: #### L 100.0100, L500.2500 ####[facility] [address] [place], [address] GLU Normal 70-99 [facility] Comment on above: Result Comment: Canc elled via OM: Order cancelled - Patient discharged Performed By: #### L 100.0100, L500.2500 ####[facility] [address] [place], [address] Potassium Normal 3.3-5.1 [facility] Comment on above: Result Comment: Canc elled via OM: Order cancelled - Patient discharged Performed By: #### L 100.0100, L500.2500 ####[facility] [address] [place], [address] Basic Metabolic Profile (BMP) Normal 133-145 [facility] Comment on above: Result Comment: Canc elled via OM: Order cancelled - Patient discharged Performed By: #### L 100.0100, L500.2500 ####[facility] [address] [place], [address] CBC W/Diff, Automatedon 09-0 6-2024 Absolute Neut Normal 2.0-7.7 [facility] Comment on above: Result Comment: Canc elled via OM: Order cancelled - Patient discharged Performed By: #### L 100.0100, L500.2500 ####[facility] [address] [place], [address] HCT Normal 40-54 [facility] Comment on above: Result Comment: Canc elled via OM: Order cancelled - Patient discharged Performed By: #### L 100.0100, L500.2500 ####[facility] [address] [place], [address] HGB Normal 13.0-16.5 [facility] Comment on above: Result Comment: Canc elled via OM: Order cancelled - Patient discharged Performed By: #### L 100.0100, L500.2500 ####[facility] [address] [place], [address] MCH Normal 27.0-32.0 [facility] Comment on above: Result Comment: Canc elled via OM: Order cancelled - Patient discharged Performed By: #### L 100.0100, L500.2500 ####[facility] [address] [place], [address] MCHC Normal 32-36 [facility] Comment on above: Result Comment: Canc elled via OM: Order cancelled - Patient discharged Performed By: #### L 100.0100, L500.2500 ####[facility] [address] [place], [address] MCV Normal 80-94 [facility] Comment on above: Result Comment: Canc elled via OM: Order cancelled - Patient discharged Performed By: #### L 100.0100, L500.2500 ####[facility] [address] [place], [address] NEUT% Normal 47-70 [facility] Comment on above: Result Comment: Canc elled via OM: Order cancelled - Patient discharged Performed By: #### L 100.0100, L500.2500 ####[facility] [address] [place], [address] PLT Normal 150-450 [facility] Comment on above: Result Comment: Canc elled via OM: Order cancelled - Patient discharged Performed By: #### L 100.0100, L500.2500 ####[facility] [address] [place], [address] RBC Normal 4.6-6.2 [facility] Comment on above: Result Comment: Canc elled via OM: Order cancelled - Patient discharged Performed By: #### L 100.0100, L500.2500 ####[facility] [address] [place], [address] RDW CV Normal 11.6-14.6 [facility] Comment on above: Result Comment: Canc elled via OM: Order cancelled - Patient discharged Performed By: #### L 100.0100, L500.2500 ####[facility] [address] [place], [address] RDW SD Normal 35.1-43.9 [facility] Comment on above: Result Comment: Canc elled via OM: Order cancelled - Patient discharged Performed By: #### L 100.0100, L500.2500 ####[facility] [address] [place], [address] WBC Normal 4.4-11.0 [facility] Comment on above: Result Comment: Canc elled via OM: Order cancelled - Patient discharged Performed By: #### L 100.0100, L500.2500 ####[facility] [address] [place], [address] Basic Metabolic Profile (BMP )on 04-20-2025 BUN/CRE 22.4 RATIO High 10-20 [facility] Comment on above: Performed By: #### L 100.0500, L500.2500 ####[facility] [address] [place], [address] Calcium [Mass/Vol] 9.1 mg/dL Normal 7.6-11.0 [facility] Comment on above: Performed By: #### L 100.0500, L500.2500 ####[facility] [address] [place], [address] Chloride [Moles/Vol] 91 mmol/L Low 98-108 [facility] Comment on above: Performed By: #### L 100.0500, L500.2500 ####[facility] [address] [place], [address] CO2 [Moles/Vol] 32.1 mmol/L High 21.0-32.0 [facility] Comment on above: Performed By: #### L 100.0500, L500.2500 ####[facility] [address] [place], [address] Creatinine [Mass/Vol] 1.65 mg/dL High 0.70-1.20 [facility] Comment on above: Performed By: #### L 100.0500, L500.2500 ####[facility] [address] [place], [address] ECRCL 32.22 ml/min Low 50-250 [facility] Comment on above: Performed By: #### L 100.0500, L500.2500 ####[facility] [address] [place], [address] GAP 12 Normal 5-15 [facility] Comment on above: Performed By: #### L 100.0500, L500.2500 ####[facility] [address] [place], [address] GFR/1.73 sq M.predicted among non-blacks MDRD (S/P/Bld) [Vol rate/Area] 42 mL/min/{1.73_m2} Low >60 [facility] Comment on above: Result Comment: mL/m in/1.73m2 CKD-EPI Creatinine Equation (2020) Performed By: #### L 100.0500, L500.2500 ####[facility] [address] [place], [address] Glucose [Mass/Vol] 154 mg/dL High 70-99 [facility] Comment on above: Performed By: #### L 100.0500, L500.2500 ####[facility] [address] [place], [address] Potassium [Moles/Vol] 3.4 mmol/L Normal 3.3-5.1 [facility] Comment on above: Performed By: #### L 100.0500, L500.2500 ####[facility] [address] [place], [address] Sodium [Moles/Vol] 135 mmol/L Normal 133-145 [facility] Comment on above: Performed By: #### L 100.0500, L500.2500 ####[facility] [address] [place], [address] Urea nitrogen [Mass/Vol] 37 mg/dL High 4-19 [facility] Comment on above: Performed By: #### L 100.0500, L500.2500 ####[facility] [address] [place], [address] Bedside Glucoseon 04-20-2025 FINGERSTICK GLU 156 mg/dL High 74-106 [facility] Comment on above: Result Comment: KODY STRONG OF PATIENT CARE PER NURSING PROTOCOL Performed By: #### L 501.080 ####[facility] [address] [place], [address] CBC-Complete Blood Cnt No Di ffon 04-20-2025 Erythrocyte distribution width (RBC) [Ratio] 17.1 % High 11.6-14.6 [facility] Comment on above: Performed By: #### L 100.0500, L500.2500 ####[facility] [address] [place], [address] Hematocrit (Bld) [Volume fraction] 29.4 % Low 40-54 [facility] Comment on above: Performed By: #### L 100.0500, L500.2500 ####[facility] [address] [place], [address] Hemoglobin (Bld) [Mass/Vol] 9.1 g/dL Low 13.0-16.5 [facility] Comment on above: Performed By: #### L 100.0500, L500.2500 ####[facility] [address] [place], [address] MCH (RBC) [Entitic mass] 26.8 pg Low 27.0-32.0 [facility] Comment on above: Performed By: #### L 100.0500, L500.2500 ####[facility] [address] [place], [address] MCHC (RBC) [Mass/Vol] 31.0 g/dL Low 32-36 [facility] Comment on above: Performed By: #### L 100.0500, L500.2500 ####[facility] [address] [place], [address] MCV (RBC) [Entitic vol] 86.7 fL Normal 80-94 [facility] Comment on above: Performed By: #### L 100.0500, L500.2500 ####[facility] [address] [place], [address] Platelet mean volume (Bld) [Entitic vol] 11.0 fL Normal 6.2-12.0 [facility] Comment on above: Performed By: #### L 100.0500, L500.2500 ####[facility] [address] [place], [address] Platelets (Bld) [#/Vol] 192 10*3/uL Normal 150-450 [facility] Comment on above: Performed By: #### L 100.0500, L500.2500 ####[facility] [address] [place], [address] RBC (Bld) [#/Vol] 3.39 10*6/uL Low 4.6-6.2 [facility] Comment on above: Performed By: #### L 100.0500, L500.2500 ####[facility] [address] [place], [address] RDW SD 53.4 fl High 35.1-43.9 [facility] Comment on above: Performed By: #### L 100.0500, L500.2500 ####[facility] [address] [place], [address] WBC (Bld) [#/Vol] 9.9 10*3/uL Normal 4.4-11.0 [facility] Comment on above: Performed By: #### L 100.0500, L500.2500 ####[facility] [address] [place], [address] Absolute lymphocyte countOrd ered By: Casper Iniguez on 04-19-2025 Lymphocytes Auto (Unsp spec) [#/Vol] 0.97 10*3/uL 0.83-4.51 [facility] Anion gap in Serum or Plasma Ordered By: Casper Iniguez on 04-19-2025 Anion gap [Moles/Vol] 11 mmol/L 5-15 [facility] Automated lymphocyte count a s percentage of total leukocytesOrdered By: Casper Iniguez on 04-19-2025 Lymphocytes/100 WBC Auto (Unsp spec) 9.1 % Low 19-41 [facility] BUN/creatinine ratioOrdered By: Casper Iniguez on 04-19-2025 Urea nitrogen/Creatinine [Mass ratio] 22.7 mg/mg High 10-20 [facility] Basophil percentageOrdered B y: Casper Iniguez on 04-19-2025 Basophils/100 WBC (Bld) 0.3 % 0-1 [facility] Bedside Glucoseon 04-19-2025 FINGERSTICK GLU 178 mg/dL High 74-106 [facility] Comment on above: Result Comment: KODY GEMENT OF PATIENT CARE PER NURSING PROTOCOL Performed By: #### L 501.080 ####[facility] [address] [place], [address] FINGERSTICK GLU 193 mg/dL High 74-106 [facility] Comment on above: Result Comment: KODY GEMENT OF PATIENT CARE PER NURSING PROTOCOL Performed By: #### L 501.080 ####[facility] [address] [place], [address] FINGERSTICK GLU 91 mg/dL Normal 74-106 [facility] Comment on above: Result Comment: KODY GEMENT OF PATIENT CARE PER NURSING PROTOCOL Performed By: #### L 501.080 ####[facility] [address] [place], [address] FINGERSTICK GLU 123 mg/dL High 74-106 [facility] Comment on above: Result Comment: KODY GEMENT OF PATIENT CARE PER NURSING PROTOCOL Performed By: #### L 501.080 ####[facility] [address] [place], [address] Bilirubin, totalOrdered By: Casper Iniguez on 04-19-2025 Bilirubin [Mass/Vol] 0.55 mg/dL 0.00-1.30 [facility] CBC W/Diff, Automatedon 03-22 Absolute Lymph 0.97 X10 3/uL Normal 0.83-4.51 [facility] Comment on above: Performed By: #### L 500.4050, L100.0100, L501.4021 ####[facility] [address] [place], [address] Absolute Neut 8.0 X10 3/uL High 2.0-7.7 [facility] Comment on above: Performed By: #### L 500.4050, L100.0100, L501.4021 ####[facility] [address] [place], [address] Basophils/100 WBC (Bld) 0.3 % Normal 0-1 [facility] Comment on above: Performed By: #### L 500.4050, L100.0100, L501.4021 ####[facility] [address] [place], [address] Eosinophils/100 WBC (Bld) 2.7 % Normal 0-5 [facility] Comment on above: Performed By: #### L 500.4050, L100.0100, L501.4021 ####[facility] [address] [place], [address] Erythrocyte distribution width (RBC) [Ratio] 17.2 % High 11.6-14.6 [facility] Comment on above: Performed By: #### L 500.4050, L100.0100, L501.4021 ####[facility] [address] [place], [address] Hematocrit (Bld) [Volume fraction] 30.6 % Low 40-54 [facility] Comment on above: Performed By: #### L 500.4050, L100.0100, L501.4021 ####[facility] [address] [place], [address] Hemoglobin (Bld) [Mass/Vol] 9.6 g/dL Low 13.0-16.5 [facility] Comment on above: Performed By: #### L 500.4050, L100.0100, L501.4021 ####[facility] [address] [place], [address] IG% 1.600 High 0.0-0.9 [facility] Comment on above: Result Comment: IG% - Immature Granulocytes (promyelocytes, myelocytes andmetamyelocytes) > 1% indicates that a LEFT SHIFT is Present. Performed By: #### L 500.4050, L100.0100, L501.4021 ####[facility] [address] [place], [address] Lymphocytes/100 WBC (Bld) 9.1 % Low 19-41 [facility] Comment on above: Performed By: #### L 500.4050, L100.0100, L501.4021 ####[facility] [address] [place], [address] MCH (RBC) [Entitic mass] 27.4 pg Normal 27.0-32.0 [facility] Comment on above: Performed By: #### L 500.4050, L100.0100, L501.4021 ####[facility] [address] [place], [address] MCHC (RBC) [Mass/Vol] 31.4 g/dL Low 32-36 [facility] Comment on above: Performed By: #### L 500.4050, L100.0100, L501.4021 ####[facility] [address] [place], [address] MCV (RBC) [Entitic vol] 87.2 fL Normal 80-94 [facility] Comment on above: Performed By: #### L 500.4050, L100.0100, L501.4021 ####[facility] [address] [place], [address] Monocytes/100 WBC (Bld) 11.3 % High 0-10 [facility] Comment on above: Performed By: #### L 500.4050, L100.0100, L501.4021 ####[facility] [address] [place], [address] Neutrophils/100 WBC (Bld) 75.0 % High 47-70 [facility] Comment on above: Performed By: #### L 500.4050, L100.0100, L501.4021 ####[facility] [address] [place], [address] Nucleated RBC (Bld) [#/Vol] 0 10*3/uL Normal 0-5 [facility] Comment on above: Performed By: #### L 500.4050, L100.0100, L501.4021 ####[facility] [address] [place], [address] Platelet mean volume (Bld) [Entitic vol] 11.1 fL Normal 6.2-12.0 [facility] Comment on above: Performed By: #### L 500.4050, L100.0100, L501.4021 ####[facility] [address] [place], [address] Platelets (Bld) [#/Vol] 204 10*3/uL Normal 150-450 [facility] Comment on above: Performed By: #### L 500.4050, L100.0100, L501.4021 ####[facility] [address] [place], [address] RBC (Bld) [#/Vol] 3.51 10*6/uL Low 4.6-6.2 [facility] Comment on above: Performed By: #### L 500.4050, L100.0100, L501.4021 ####[facility] [address] [place], [address] RDW SD 54.8 fl High 35.1-43.9 [facility] Comment on above: Performed By: #### L 500.4050, L100.0100, L501.4021 ####[facility] [address] [place], [address] WBC (Bld) [#/Vol] 10.7 10*3/uL Normal 4.4-11.0 [facility] Comment on above: Performed By: #### L 500.4050, L100.0100, L501.4021 ####[facility] [address] [place], [address] Carbon dioxide, total [Moles /volume] in Central venous bloodOrdered By: Casper Iniguez on 04-19-2025 CO2 [Moles/Vol] 37.3 mmol/L High 21.0-32.0 [facility] Chest 1 View (Portable)on Chest 1 View (Portable) Normal [facility] Chloride assayOrdered By: Akin Iniguez on 04-19-2025 Chloride [Moles/Vol] 87 mmol/L Low 98-108 [facility] Comprehensive Metabolic Prof ilon 04-19-2025 Albumin [Mass/Vol] 3.4 g/dL Normal 3.4-4.8 [facility] Comment on above: Performed By: #### L 500.4050, L100.0100, L501.4021 ####[facility] [address] [place], [address] Albumin/Globulin [Mass ratio] 1.0 {ratio} Normal 0.9-2.4 [facility] Comment on above: Performed By: #### L 500.4050, L100.0100, L501.4021 ####[facility] [address] [place], [address] ALK PHOS 79 U/L Normal 40-129 [facility] Comment on above: Performed By: #### L 500.4050, L100.0100, L501.4021 ####[facility] [address] [place], [address] ALT [Catalytic activity/Vol] 27 U/L Normal <=46 [facility] Comment on above: Performed By: #### L 500.4050, L100.0100, L501.4021 ####[facility] [address] [place], [address] AST [Catalytic activity/Vol] 30 U/L Normal <=37 [facility] Comment on above: Performed By: #### L 500.4050, L100.0100, L501.4021 ####[facility] [address] [place], [address] Bilirubin [Mass/Vol] 0.55 mg/dL Normal 0.00-1.30 [facility] Comment on above: Performed By: #### L 500.4050, L100.0100, L501.4021 ####[facility] [address] [place], [address] BUN/CRE 22.7 RATIO High 10-20 [facility] Comment on above: Performed By: #### L 500.4050, L100.0100, L501.4021 ####[facility] [address] [place], [address] Calcium [Mass/Vol] 9.4 mg/dL Normal 7.6-11.0 [facility] Comment on above: Performed By: #### L 500.4050, L100.0100, L501.4021 ####[facility] [address] [place], [address] Chloride [Moles/Vol] 87 mmol/L Low 98-108 [facility] Comment on above: Performed By: #### L 500.4050, L100.0100, L501.4021 ####[facility] [address] [place], [address] CO2 [Moles/Vol] 37.3 mmol/L High 21.0-32.0 [facility] Comment on above: Performed By: #### L 500.4050, L100.0100, L501.4021 ####[facility] [address] [place], [address] Creatinine [Mass/Vol] 1.74 mg/dL High 0.70-1.20 [facility] Comment on above: Performed By: #### L 500.4050, L100.0100, L501.4021 ####[facility] [address] [place], [address] ECRCL 30.56 ml/min Low 50-250 [facility] Comment on above: Performed By: #### L 500.4050, L100.0100, L501.4021 ####[facility] [address] [place], [address] GAP 11 Normal 5-15 [facility] Comment on above: Performed By: #### L 500.4050, L100.0100, L501.4021 ####[facility] [address] [place], [address] GFR/1.73 sq M.predicted among non-blacks MDRD (S/P/Bld) [Vol rate/Area] 39 mL/min/{1.73_m2} Low >60 [facility] Comment on above: Result Comment: mL/m in/1.73m2 CKD-EPI Creatinine Equation (2020) Performed By: #### L 500.4050, L100.0100, L501.4021 ####[facility] [address] [place], [address] Globulin (S) [Mass/Vol] 3.4 g/dL Normal 2.2-4.2 [facility] Comment on above: Performed By: #### L 500.4050, L100.0100, L501.4021 ####[facility] [address] [place], [address] Glucose [Mass/Vol] 132 mg/dL High 70-99 [facility] Comment on above: Performed By: #### L 500.4050, L100.0100, L501.4021 ####[facility] [address] [place], [address] Potassium [Moles/Vol] 3.5 mmol/L Normal 3.3-5.1 [facility] Comment on above: Performed By: #### L 500.4050, L100.0100, L501.4021 ####[facility] [address] [place], [address] Sodium [Moles/Vol] 136 mmol/L Normal 133-145 [facility] Comment on above: Performed By: #### L 500.4050, L100.0100, L501.4021 ####[facility] [address] [place], [address] T PROT 6.8 g/dL Normal 5.9-8.4 [facility] Comment on above: Performed By: #### L 500.4050, L100.0100, L501.4021 ####[facility] [address] [place], [address] Urea nitrogen [Mass/Vol] 40 mg/dL High 4-19 [facility] Comment on above: Performed By: #### L 500.4050, L100.0100, L501.4021 ####[facility] [address] [place], [address] Emergency Department Summary on 04-19-2025 Emergency Department Summary Normal [facility] Eosinophil percentageOrdered By: Casper Iniguez on 04-19-2025 Eosinophils/100 WBC (Bld) 2.7 % 0-5 [facility] Erythrocyte distribution wid th ratioOrdered By: Casper Iniguez on 04-19-2025 Erythrocyte distribution width (RBC) [Ratio] 17.2 % High 11.6-14.6 [facility] Erythrocyte distribution wid th standard deviationOrdered By: Casper Iniguez on 04-19-2025 Erythrocyte distribution width (RBC) [Ratio] 54.8 fl High 35.1-43.9 [facility] Glomerular filtration rate ( GFR) estimation/1.73 sq m using serum, plasma, or whole bOrdered By: Casper Iniguez on 04-19-2025 GFR/1.73 sq M.predicted among non-blacks MDRD (S/P/Bld) [Vol rate/Area] 39 mL/min/{1.73_m2} Low >60 [facility] deOrdered By: Valdez Olivo on 04-19-2025 Glucose [Mass/Vol] 123 mg/dL High 74-106 [facility] H AND P Exam - Hospital[facility] 04-19-2025 H&P Exam - Hospitalist Normal [facility] Hematocrit Auto (Bld) [Volum e fraction]Ordered By: Casper Iniguez on 04-19-2025 Hematocrit (Bld) [Volume fraction] 30.6 % Low 40-54 [facility] Hemoglobin measurementOrdere d By: Casper Iniguez on 04-19-2025 Hemoglobin (Bld) [Mass/Vol] 9.6 g/dL Low 13.0-16.5 [facility] Immature granulocytes/100 WB C Auto (Bld)Ordered By: Casper Iniguez on 04-19-2025 Immature granulocytes/100 WBC (Bld) 1.600 % High 0.0-0.9 [facility] L501.4021on 04-19-2025 Trop T High Sen 99 ng/L Invalid Interpretation Code <=22 [facility] Comment on above: Result Comment: Crit ical Result(s) Called at 0923: by: RENAE ALICEA. ??Results read back by same. Performed By: #### L 500.4050, L100.0100, L501.4021 ####[facility] [address] [place], [place], [address] MCV (mean corpuscular volume ) determinationOrdered By: Casper Iniguez on 04-19-2025 MCV (RBC) [Entitic vol] 87.2 fL 80-94 [facility] Magnesiumon 04-19-2025 Magnesium [Mass/Vol] 2.1 mg/dL Normal 1.5-2.2 [facility] Comment on above: Performed By: #### L 501.5200, L501.2300, L503.7505 ####[facility] [address] [place], [place], [address] Mean corpuscular hemoglobin (MCH) determinationOrdered By: Casper Iniguez on 04-19-2025 MCH (RBC) [Entitic mass] 27.4 pg 27.0-32.0 [facility] Monocyte percentageOrdered B y: Casper Iniguez on 04-19-2025 Monocytes/100 WBC (Bld) 11.3 % High 0-10 [facility] Neutrophil percentageOrdered By: Casper Iniguez on 04-19-2025 Neutrophils/100 WBC (Bld) 75.0 % High 47-70 [facility] No Panel InformationOrdered By: Casper Iniguez on 04-19-2025 30 U/L <38 [facility] Phosphoruson 04-19-2025 Phosphate [Mass/Vol] 3.9 mg/dL Normal 2.7-4.5 [facility] Comment on above: Performed By: #### L 501.5200, L501.2300, L503.7502 ####[facility] [address] [place], [place], [address] Platelet countOrdered By: Akin Iniguez on 04-19-2025 Platelets (Bld) [#/Vol] 204 10*3/uL 150-450 [facility] Potassium measurement (mass/ volume)Ordered By: Casper Iniguez on 04-19-2025 Potassium (Unsp spec) [Mass/Vol] 3.5 mmol/L 3.3-5.1 [facility] Pro- Brain NATRIURETIC PEPTI Adrienne 04-19-2025 Natriuretic peptide B (Bld) [Mass/Vol] 3388 pg/mL High <=1800 [facility] Comment on above: Result Comment: Hear t Failure Unlikely: < 300 pg/mLHeart Failure Likely< 50 Years: > 450 pg/mL50-75 Years: > 900 pg/mL>75 Years: > 1800 pg/mL Performed By: #### L 501.5200, L501.2300, L503.7505 ####[facility] [address] [place], [place], [address] RBC Auto (Bld) [#/Vol]Ordere d By: Casper Iniguez on 04-19-2025 RBC (Bld) [#/Vol] 3.51 10*6/uL Low 4.6-6.2 [facility] Serum creatinine measurement (mass/volume)Ordered By: Casper Iniguez on 04-19-2025 Creatinine [Mass/Vol] 1.74 mg/dL High 0.70-1.20 [facility] Serum globulin measurementOr dered By: Casper Iniguez on 04-19-2025 Globulin (S) [Mass/Vol] 3.4 g/dL 2.2-4.2 [facility] Serum glucose measurement (m ass/volume)Ordered By: Casper Iniguez on 04-19-2025 Glucose [Mass/Vol] 132 mg/dL High 70-99 [facility] Serum or plasma alanine ortiz otransferase (ALT) measurementOrdered By: Casper Iniguez on 04-19-2025 ALT [Catalytic activity/Vol] 27 U/L <47 [facility] Serum or plasma albumin [place] urement (mass/volume)Ordered By: Casper Iniguez on 04-19-2025 Albumin [Mass/Vol] 3.4 g/dL 3.4-4.8 [facility] Serum or plasma albumin/glob ulin mass ratioOrdered By: Casper Iniguez on 04-19-2025 Albumin/Globulin [Mass ratio] 1.0 {ratio} 0.9-2.4 [facility] Serum or plasma alkaline [place] sphatase measurementOrdered By: Casper Iniguez on 04-19-2025 ALP [Catalytic activity/Vol] 79 U/L 40-129 [facility] Serum or plasma calcium [place] urement (mass/volume)Ordered By: Casper Iniguez on 04-19-2025 Calcium [Mass/Vol] 9.4 mg/dL 7.6-11.0 [facility] Serum or plasma urea nitroge n measurement (mass/volume)Ordered By: Csaper Iniguez on 04-19-2025 Urea nitrogen [Mass/Vol] 40 mg/dL High 4-19 [facility] Sodium levelOrdered By: Rema Iniguez on 04-19-2025 Sodium [Moles/Vol] 136 mmol/L 133-145 [facility] Total proteinOrdered By: Shira Iniguez on 04-19-2025 Protein [Mass/Vol] 6.8 g/dL 5.9-8.4 [facility] Troponin T HS 2 HRon 025 Trop T High Sen 95 ng/L Invalid Interpretation Code <=22 [facility] Comment on above: Result Comment: Crit ical Result(s) Called at 1126: by: RENAE GIRON. ??Results read back by same. Performed By: #### L 499.0042 ####[facility] [address] [place], [address] Troponin T HS 4 HRon 025 Trop T High Sen 93 ng/L Invalid Interpretation Code <=22 [facility] Comment on above: Result Comment: Crit ical Result(s) Called at 1326: by: RENAE GIRON. ??Results read back by same. Performed By: #### L 499.0043 ####[facility] [address] [place], [place], [address] Troponin T.cardiac [Mass/vol ume] in Serum or Plasma by High sensitivity methodOrdered By: Casper Iniguez on 04-19-2025 Troponin T.cardiac High sensitivity method [Mass/Vol] 99 ng/L High <22 [facility] White blood cell (WBC) count Ordered By: Casper Iniguez on 04-19-2025 WBC (Bld) [#/Vol] 10.7 10*3/uL 4.4-11.0 [facility] Absolute lymphocyte countOrd ered By: Valdez Olivo on 04-18-2025 Lymphocytes Auto (Unsp spec) [#/Vol] 0.61 10*3/uL Low 0.83-4.51 [facility] Anion gap in Serum or Plasma Ordered By: Valdez Olivo on 04-18-2025 Anion gap [Moles/Vol] 12 mmol/L 5-15 [facility] Automated lymphocyte count a s percentage of total leukocytesOrdered By: Valdez Olivo on 04-18-2025 Lymphocytes/100 WBC Auto (Unsp spec) 6.2 % Low 19-41 [facility] BUN/creatinine ratioOrdered By: Valdez Olivo on 04-18-2025 Urea nitrogen/Creatinine [Mass ratio] 25.1 mg/mg High 10-20 [facility] Basic Metabolic Profile (BMP )on 04-18-2025 BUN/CRE 25.1 RATIO High 10-20 [facility] Comment on above: Performed By: #### L 100.0100, L500.2500 ####[facility] [address] [place], [address] Calcium [Mass/Vol] 9.1 mg/dL Normal 7.6-11.0 [facility] Comment on above: Performed By: #### L 100.0100, L500.2500 ####[facility] [address] [place], [address] Chloride [Moles/Vol] 89 mmol/L Low 98-108 [facility] Comment on above: Performed By: #### L 100.0100, L500.2500 ####[facility] [address] [place], [address] CO2 [Moles/Vol] 36.0 mmol/L High 21.0-32.0 [facility] Comment on above: Performed By: #### L 100.0100, L500.2500 ####[facility] [address] [place], [address] Creatinine [Mass/Vol] 1.73 mg/dL High 0.70-1.20 [facility] Comment on above: Performed By: #### L 100.0100, L500.2500 ####[facility] [address] [place], [address] ECRCL 30.73 ml/min Low 50-250 [facility] Comment on above: Performed By: #### L 100.0100, L500.2500 ####[facility] [address] [place], [address] GAP 12 Normal 5-15 [facility] Comment on above: Performed By: #### L 100.0100, L500.2500 ####[facility] [address] [place], [address] GFR/1.73 sq M.predicted among non-blacks MDRD (S/P/Bld) [Vol rate/Area] 39 mL/min/{1.73_m2} Low >60 [facility] Comment on above: Result Comment: mL/m in/1.73m2 CKD-EPI Creatinine Equation (2020) Performed By: #### L 100.0100, L500.2500 ####[facility] [address] [place], [address] Glucose [Mass/Vol] 104 mg/dL High 70-99 [facility] Comment on above: Performed By: #### L 100.0100, L500.2500 ####[facility] [address] [place], [address] Potassium [Moles/Vol] 3.4 mmol/L Normal 3.3-5.1 [facility] Comment on above: Performed By: #### L 100.0100, L500.2500 ####[facility] [address] [place], [address] Sodium [Moles/Vol] 137 mmol/L Normal 133-145 [facility] Comment on above: Performed By: #### L 100.0100, L500.2500 ####[facility] [address] [place], [address] Urea nitrogen [Mass/Vol] 43 mg/dL High 4-19 [facility] Comment on above: Performed By: #### L 100.0100, L500.2500 ####[facility] [address] [place], [place], [address] BUN Normal 4-19 [facility] Comment on above: Result Comment: Canc elled via OM: Order cancelled - Patient discharged Performed By: #### L 100.0100, L500.2500 ####[facility] [address] [place], [address] BUN/CRE Normal 10-20 [facility] Comment on above: Result Comment: Canc elled via OM: Order cancelled - Patient discharged Performed By: #### L 100.0100, L500.2500 ####[facility] [address] [place], [address] Calcium Normal 7.6-11.0 [facility] Comment on above: Result Comment: Canc elled via OM: Order cancelled - Patient discharged Performed By: #### L 100.0100, L500.2500 ####[facility] [address] [place], [address] CL Normal 98-108 [facility] Comment on above: Result Comment: Canc elled via OM: Order cancelled - Patient discharged Performed By: #### L 100.0100, L500.2500 ####[facility] [address] [place], [address] CO2 Normal 21.0-32.0 [facility] Comment on above: Result Comment: Canc elled via OM: Order cancelled - Patient discharged Performed By: #### L 100.0100, L500.2500 ####[facility] [address] [place], [address] CREAT,SERUM Normal 0.70-1.20 [facility] Comment on above: Result Comment: Canc elled via OM: Order cancelled - Patient discharged Performed By: #### L 100.0100, L500.2500 ####[facility] [address] [place], [address] eGFR Normal >60 [facility] Comment on above: Result Comment: Canc elled via OM: Order cancelled - Patient discharged Performed By: #### L 100.0100, L500.2500 ####[facility] [address] [place], [address] GAP Normal 5-15 [facility] Comment on above: Result Comment: Canc elled via OM: Order cancelled - Patient discharged Performed By: #### L 100.0100, L500.2500 ####[facility] [address] [place], [address] GLU Normal 70-99 [facility] Comment on above: Result Comment: Canc elled via OM: Order cancelled - Patient discharged Performed By: #### L 100.0100, L500.2500 ####[facility] [address] [place], [address] Potassium Normal 3.3-5.1 [facility] Comment on above: Result Comment: Canc elled via OM: Order cancelled - Patient discharged Performed By: #### L 100.0100, L500.2500 ####[facility] [address] [place], [address] Basic Metabolic Profile (BMP) Normal 133-145 [facility] Comment on above: Result Comment: Canc elled via OM: Order cancelled - Patient discharged Performed By: #### L 100.0100, L500.2500 ####[facility] [address] [place], [address] Basophil percentageOrdered B y: Valdez Geovani on 04-18-2025 Basophils/100 WBC (Bld) 0.2 % 0-1 [facility] Bedside Glucoseon 04-18-2025 FINGERSTICK GLU 217 mg/dL High 74-106 [facility] Comment on above: Result Comment: KODY GEMENT OF PATIENT CARE PER NURSING PROTOCOL Performed By: #### L 501.080 ####[facility] [address] [place], [address] FINGERSTICK GLU 161 mg/dL High 74-106 [facility] Comment on above: Result Comment: KODY GEMENT OF PATIENT CARE PER NURSING PROTOCOL Performed By: #### L 501.080 ####[facility] [address] [place], [address] FINGERSTICK GLU 211 mg/dL High 74-106 [facility] Comment on above: Result Comment: KODY GEMENT OF PATIENT CARE PER NURSING PROTOCOL Performed By: #### L 501.080 ####[facility] [address] [place], [address] FINGERSTICK GLU 99 mg/dL Normal 74-106 [facility] Comment on above: Result Comment: KODY GEMENT OF PATIENT CARE PER NURSING PROTOCOL Performed By: #### L 501.080 ####[facility] [address] [place], [address] CBC W/Diff, Automatedon 08-3 0-2025 Absolute Lymph 0.61 X10 3/uL Low 0.83-4.51 [facility] Comment on above: Performed By: #### L 100.0100, L500.2500 ####[facility] [address] [place], [address] Absolute Neut 7.7 X10 3/uL Normal 2.0-7.7 [facility] Comment on above: Performed By: #### L 100.0100, L500.2500 ####[facility] [address] [place], [address] Basophils/100 WBC (Bld) 0.2 % Normal 0-1 [facility] Comment on above: Performed By: #### L 100.0100, L500.2500 ####[facility] [address] [place], [address] Eosinophils/100 WBC (Bld) 3.3 % Normal 0-5 [facility] Comment on above: Performed By: #### L 100.0100, L500.2500 ####[facility] [address] [place], [address] Erythrocyte distribution width (RBC) [Ratio] 17.0 % High 11.6-14.6 [facility] Comment on above: Performed By: #### L 100.0100, L500.2500 ####[facility] [address] [place], [address] Hematocrit (Bld) [Volume fraction] 28.6 % Low 40-54 [facility] Comment on above: Performed By: #### L 100.0100, L500.2500 ####[facility] [address] [place], [address] Hemoglobin (Bld) [Mass/Vol] 9.0 g/dL Low 13.0-16.5 [facility] Comment on above: Performed By: #### L 100.0100, L500.2500 ####[facility] [address] [place], [address] IG% 1.400 High 0.0-0.9 [facility] Comment on above: Result Comment: IG% - Immature Granulocytes (promyelocytes, myelocytes andmetamyelocytes) > 1% indicates that a LEFT SHIFT is Present. Performed By: #### L 100.0100, L500.2500 ####[facility] [address] [place], [address] Lymphocytes/100 WBC (Bld) 6.2 % Low 19-41 [facility] Comment on above: Performed By: #### L 100.0100, L500.2500 ####[facility] [address] [place], [address] MCH (RBC) [Entitic mass] 27.0 pg Normal 27.0-32.0 [facility] Comment on above: Performed By: #### L 100.0100, L500.2500 ####[facility] [address] [place], [address] MCHC (RBC) [Mass/Vol] 31.5 g/dL Low 32-36 [facility] Comment on above: Performed By: #### L 100.0100, L500.2500 ####[facility] [address] [place], [address] MCV (RBC) [Entitic vol] 85.9 fL Normal 80-94 [facility] Comment on above: Performed By: #### L 100.0100, L500.2500 ####[facility] [address] [place], [address] Monocytes/100 WBC (Bld) 11.2 % High 0-10 [facility] Comment on above: Performed By: #### L 100.0100, L500.2500 ####[facility] [address] [place], [address] Neutrophils/100 WBC (Bld) 77.7 % High 47-70 [facility] Comment on above: Performed By: #### L 100.0100, L500.2500 ####[facility] [address] [place], [address] Nucleated RBC (Bld) [#/Vol] 0 10*3/uL Normal 0-5 [facility] Comment on above: Performed By: #### L 100.0100, L500.2500 ####[facility] [address] [place], [address] Platelet mean volume (Bld) [Entitic vol] 10.5 fL Normal 6.2-12.0 [facility] Comment on above: Performed By: #### L 100.0100, L500.2500 ####[facility] [address] [place], [address] Platelets (Bld) [#/Vol] 186 10*3/uL Normal 150-450 [facility] Comment on above: Performed By: #### L 100.0100, L500.2500 ####[facility] [address] [place], [address] RBC (Bld) [#/Vol] 3.33 10*6/uL Low 4.6-6.2 [facility] Comment on above: Performed By: #### L 100.0100, L500.2500 ####[facility] [address] [place], [address] RDW SD 52.7 fl High 35.1-43.9 [facility] Comment on above: Performed By: #### L 100.0100, L500.2500 ####[facility] [address] [place], [address] WBC (Bld) [#/Vol] 9.9 10*3/uL Normal 4.4-11.0 [facility] Comment on above: Performed By: #### L 100.0100, L500.2500 ####[facility] [address] [place], [address] Absolute Neut Normal 2.0-7.7 [facility] Comment on above: Result Comment: Canc elled via OM: Order cancelled - Patient discharged Performed By: #### L 100.0100, L500.2500 ####[facility] [address] [place], [address] HCT Normal 40-54 [facility] Comment on above: Result Comment: Canc elled via OM: Order cancelled - Patient discharged Performed By: #### L 100.0100, L500.2500 ####[facility] [address] [place], [address] HGB Normal 13.0-16.5 [facility] Comment on above: Result Comment: Canc elled via OM: Order cancelled - Patient discharged Performed By: #### L 100.0100, L500.2500 ####[facility] [address] [place], [address] MCH Normal 27.0-32.0 [facility] Comment on above: Result Comment: Canc elled via OM: Order cancelled - Patient discharged Performed By: #### L 100.0100, L500.2500 ####[facility] [address] [place], [address] MCHC Normal 32-36 [facility] Comment on above: Result Comment: Canc elled via OM: Order cancelled - Patient discharged Performed By: #### L 100.0100, L500.2500 ####[facility] [address] [place], [address] MCV Normal 80-94 [facility] Comment on above: Result Comment: Canc elled via OM: Order cancelled - Patient discharged Performed By: #### L 100.0100, L500.2500 ####[facility] [address], [address] NEUT% Normal 47-70 [facility] Comment on above: Result Comment: Canc elled via OM: Order cancelled - Patient discharged Performed By: #### L 100.0100, L500.2500 ####[facility] [address] [place], [address] PLT Normal 150-450 [facility] Comment on above: Result Comment: Canc elled via OM: Order cancelled - Patient discharged Performed By: #### L 100.0100, L500.2500 ####[facility] [address] [place], [address] RBC Normal 4.6-6.2 [facility] Comment on above: Result Comment: Canc elled via OM: Order cancelled - Patient discharged Performed By: #### L 100.0100, L500.2500 ####[facility] [address], [address] RDW CV Normal 11.6-14.6 [facility] Comment on above: Result Comment: Canc elled via OM: Order cancelled - Patient discharged Performed By: #### L 100.0100, L500.2500 ####[facility] [address] [place], [address] RDW SD Normal 35.1-43.9 [facility] Comment on above: Result Comment: Canc elled via OM: Order cancelled - Patient discharged Performed By: #### L 100.0100, L500.2500 ####[facility] [address] [place], [address] WBC Normal 4.4-11.0 [facility] Comment on above: Result Comment: Canc elled via OM: Order cancelled - Patient discharged Performed By: #### L 100.0100, L500.2500 ####[facility] [address] [place], [address] Carbon dioxide, total [Moles /volume] in Central venous bloodOrdered By: Valdez Olivo on 04-18-2025 CO2 [Moles/Vol] 36.0 mmol/L High 21.0-32.0 [facility] Chloride assayOrdered By: Aiden Olivo on 04-18-2025 Chloride [Moles/Vol] 89 mmol/L Low 98-108 [facility] Eosinophil percentageOrdered By: Valdez Olivo on 04-18-2025 Eosinophils/100 WBC (Bld) 3.3 % 0-5 [facility] Erythrocyte distribution wid th ratioOrdered By: Valdez Olivo on 04-18-2025 Erythrocyte distribution width (RBC) [Ratio] 17.0 % High 11.6-14.6 [facility] Erythrocyte distribution wid th standard deviationOrdered By: Valdez Olivo on 04-18-2025 Erythrocyte distribution width (RBC) [Ratio] 52.7 fl High 35.1-43.9 [facility] Glomerular filtration rate ( GFR) estimation/1.73 sq m using serum, plasma, or whole bOrdered By: Valdez Olivo on 04-18-2025 GFR/1.73 sq M.predicted among non-blacks MDRD (S/P/Bld) [Vol rate/Area] 39 mL/min/{1.73_m2} Low >60 [facility] Hematocrit Auto (Bld) [Volum e fraction]Ordered By: Valdez Olivo on 04-18-2025 Hematocrit (Bld) [Volume fraction] 28.6 % Low 40-54 [facility] Hemoglobin measurementOrdere d By: Valdez Olivo on 04-18-2025 Hemoglobin (Bld) [Mass/Vol] 9.0 g/dL Low 13.0-16.5 [facility] Immature granulocytes/100 WB C Auto (Bld)Ordered By: Valdez Olivo on 04-18-2025 Immature granulocytes/100 WBC (Bld) 1.400 % High 0.0-0.9 [facility] MCV (mean corpuscular volume ) determinationOrdered By: Valdez Olivo on 04-18-2025 MCV (RBC) [Entitic vol] 85.9 fL 80-94 [facility] Mean corpuscular hemoglobin (MCH) determinationOrdered By: Valdez Olivo 04-18-2025 MCH (RBC) [Entitic mass] 27.0 pg 27.0-32.0 [facility] Monocyte percentageOrdered B y: Valdez Olivo on 04-18-2025 Monocytes/100 WBC (Bld) 11.2 % High 0-10 [facility] Neutrophil percentageOrdered By: Vadlez Olivo on 04-18-2025 Neutrophils/100 WBC (Bld) 77.7 % High 47-70 [facility] Platelet countOrdered By: Aiden Olivo on 04-18-2025 Platelets (Bld) [#/Vol] 186 10*3/uL 150-450 [facility] Potassium measurement (mass/ volume)Ordered By: Valdez Olivo on 04-18-2025 Potassium (Unsp spec) [Mass/Vol] 3.4 mmol/L 3.3-5.1 [facility] RBC Auto (Bld) [#/Vol]Ordere d By: Valdez Olivo on 04-18-2025 RBC (Bld) [#/Vol] 3.33 10*6/uL Low 4.6-6.2 [facility] Serum creatinine measurement (mass/volume)Ordered By: Valdez Olivo on 04-18-2025 Creatinine [Mass/Vol] 1.73 mg/dL High 0.70-1.20 [facility] Serum glucose measurement (m ass/volume)Ordered By: Valdez Olivo on 04-18-2025 Glucose [Mass/Vol] 104 mg/dL High 70-99 [facility] Serum or plasma calcium [place] urement (mass/volume)Ordered By: Valdez Geovani on 04-18-2025 Calcium [Mass/Vol] 9.1 mg/dL 7.6-11.0 [facility] Serum or plasma urea nitroge n measurement (mass/volume)Ordered By: Valdez Olivo on 04-18-2025 Urea nitrogen [Mass/Vol] 43 mg/dL High 4-19 [facility] Sodium levelOrdered By: Valdez Geovani on 04-18-2025 Sodium [Moles/Vol] 137 mmol/L 133-145 [facility] White blood cell (WBC) count Ordered By: Valdez Geovani on 04-18-2025 WBC (Bld) [#/Vol] 9.9 10*3/uL 4.4-11.0 [facility] .Auto Diffon 04-17-2025 Basophil, Absolute 0.0 10 3/mcL Normal 0.0-0.3 [facility] Comment on above: Performed By: #### P ROBF, BFPR, PHBF, BFCT, GLUBF, LDBF #### [address] [address] Basophils/100 WBC (Bld) 0.6 % Normal 0.0-2.5 [facility] Comment on above: Performed By: #### P ROBF, BFPR, PHBF, BFCT, GLUBF, LDBF #### [address] [address] Eosinophil, Absolute 0.4 10 3/mcL Normal 0.0-0.7 [facility] Comment on above: Performed By: #### P ROBF, BFPR, PHBF, BFCT, GLUBF, LDBF #### [address] [address] Eosinophils/100 WBC (Bld) 4.2 % Normal 0.0-6.0 [facility] Comment on above: Performed By: #### P ROBF, BFPR, PHBF, BFCT, GLUBF, LDBF #### [address] [address] Lymphocyte, Absolute 0.5 10 3/mcL Low 0.9-4.3 [facility] Comment on above: Performed By: #### P ROBF, BFPR, PHBF, BFCT, GLUBF, LDBF #### [address] [address] Lymphocytes/100 WBC (Bld) 5.5 % Low 20.0-40.0 [facility] Comment on above: Performed By: #### P ROBF, BFPR, PHBF, BFCT, GLUBF, LDBF #### [address] [address] Monocyte, Absolute 0.8 10 3/mcL Normal 0.1-1.4 [facility] Comment on above: Performed By: #### P ROBF, BFPR, PHBF, BFCT, GLUBF, LDBF #### [address] [address] Monocytes/100 WBC (Bld) 9.6 % Normal 2.0-13.0 [facility] Comment on above: Performed By: #### P ROBF, BFPR, PHBF, BFCT, GLUBF, LDBF #### [address] [address] Neutrophils/100 WBC (Bld) 80.1 % High 50.0-75.0 [facility] Comment on above: Performed By: #### P ROBF, BFPR, PHBF, BFCT, GLUBF, LDBF #### [address] [address] .GFRon 04-17-2025 Estimated Glomerular Filtration Rate 43 ml/min/1.73sqm Normal [facility] Comment on above: Result Comment: [...] ROBF, BFPR, PHBF, BFCT, GLUBF, LDBF #### [place] [address] .NEUABSon 04-17-2025 Neutrophil, Absolute 7.1 10 3/mcL Normal 2.3-8.1 [facility] Comment on above: Performed By: #### P ROBF, BFPR, PHBF, BFCT, GLUBF, LDBF #### [place] [address] APTTon 04-17-2025 aPTT Coag (Bld) [Time] 73.1 s High 25.0-35.0 [facility] Comment on above: Result Comment: For Heparin anticoagulation therapy, the recommended therapeutic range is: 54-77 seconds (APTT Correlation with Anti-Xa therapeutic range of 0.3-0.7 units/ml). PLEASE REFERENCE THE PHARMACY PROTOCOL FOR DOSING. Performed By: #### P ROBF, BFPR, PHBF, BFCT, GLUBF, LDBF #### [place] [address] aPTT Coag (Bld) [Time] 68.5 s High 25.0-35.0 [facility] Comment on above: Result Comment: For Heparin anticoagulation therapy, the recommended therapeutic range is: 54-77 seconds (APTT Correlation with Anti-Xa therapeutic range of 0.3-0.7 units/ml). PLEASE REFERENCE THE PHARMACY PROTOCOL FOR DOSING. Performed By: #### P ROBF, BFPR, PHBF, BFCT, GLUBF, LDBF #### [place] [address] BFPRon 04-17-2025 Body Fluid Path Review Normal [facility] Comment on above: Order Comment: [...] ROBF, BFPR, PHBF, BFCT, GLUBF, LDBF #### [address] [address] Bedside Glucoseon 04-17-2025 FINGERSTICK GLU 191 mg/dL High 74-106 [facility] Comment on above: Result Comment: KODY STRONG OF PATIENT CARE PER NURSING PROTOCOL Performed By: #### L 501.080 ####[facility] [address] [place], [place], [address] CBCon 04-17-2025 Erythrocyte distribution width (RBC) [Ratio] 18.3 % High 11.5-15.5 [facility] Comment on above: Performed By: #### P ROBF, BFPR, PHBF, BFCT, GLUBF, LDBF #### [address] [address] Hematocrit (Bld) [Volume fraction] 27.4 % Low 40.0-52.0 [facility] Comment on above: Performed By: #### P ROBF, BFPR, PHBF, BFCT, GLUBF, LDBF #### [address] [address] Hgb 9.0 G/dL Low 13.0-17.5 [facility] Comment on above: Performed By: #### P ROBF, BFPR, PHBF, BFCT, GLUBF, LDBF #### [address] [address] MCH (RBC) [Entitic mass] 27.3 pg Normal 27.0-33.0 [facility] Comment on above: Performed By: #### P ROBF, BFPR, PHBF, BFCT, GLUBF, LDBF #### [address] [address] MCHC 32.7 G/dL Normal 32.0-36.0 [facility] Comment on above: Performed By: #### P ROBF, BFPR, PHBF, BFCT, GLUBF, LDBF #### [place] [id number] MCV (RBC) [Entitic vol] 83.4 fL Normal 81.0-100.0 [facility] Comment on above: Performed By: #### P ROBF, BFPR, PHBF, BFCT, GLUBF, LDBF #### [place] [id number] Platelet 163 10 3/mcL Normal 150-450 [facility] Comment on above: Performed By: #### P ROBF, BFPR, PHBF, BFCT, GLUBF, LDBF #### [place] [id number] Platelet mean volume (Bld) [Entitic vol] 8.4 fL Normal 6.4-10.5 [facility] Comment on above: Performed By: #### P ROBF, BFPR, PHBF, BFCT, GLUBF, LDBF #### [place] [address] RBC 3.29 10 6/mcL Low 4.50-6.00 [facility] Comment on above: Performed By: #### P ROBF, BFPR, PHBF, BFCT, GLUBF, LDBF #### [place] [id number] WBC 8.8 10 3/mcL Normal 4.5-10.8 [facility] Comment on above: Performed By: #### P ROBF, BFPR, PHBF, BFCT, GLUBF, LDBF #### [address] [address] CMPon 04-17-2025 Albumin Level 2.7 G/dL Low 3.2-4.8 [facility] Comment on above: Order Comment: vrb- called critical CO2 to KHURRAM Man 04/17/2025 06:09:20 EDT SAS Performed By: #### P ROBF, BFPR, PHBF, BFCT, GLUBF, LDBF #### [facility] [address] [place], [place] [address] Albumin/Globulin [Mass ratio] 0.8 {ratio} Low 0.9-1.6 [facility] Comment on above: Order Comment: vrb- called critical CO2 to KHURRAM Man 04/17/2025 06:09:20 EDT SAS Performed By: #### P ROBF, BFPR, PHBF, BFCT, GLUBF, LDBF #### [address] [address] ALP [Catalytic activity/Vol] 65 U/L Normal 38-126 [facility] Comment on above: Order Comment: vrb- called critical CO2 to KHURRAM Man 04/17/2025 06:09:20 EDT SAS Performed By: #### P ROBF, BFPR, PHBF, BFCT, GLUBF, LDBF #### [address] [address] ALT [Catalytic activity/Vol] 21 U/L Normal 12-55 [facility] Comment on above: Order Comment: vrb- called critical CO2 to KHURRAM Man 04/17/2025 06:09:20 EDT SAS Performed By: #### P ROBF, BFPR, PHBF, BFCT, GLUBF, LDBF #### [address] [address] AST [Catalytic activity/Vol] 16 U/L Normal 8-34 [facility] Comment on above: Order Comment: vrb- called critical CO2 to KHURRAM Man 04/17/2025 06:09:20 EDT SAS Performed By: #### P ROBF, BFPR, PHBF, BFCT, GLUBF, LDBF #### [address] [address] Bili Total 0.40 mg/dL Normal 0.20-1.20 [facility] Comment on above: Order Comment: vrb- called critical CO2 to KHURRAM Man 04/17/2025 06:09:20 EDT SAS Result Comment: Use of this assay is not recommended for patients undergoing treatment with eltrombopag due to the potential for falsely elevated results. Performed By: #### P ROBF, BFPR, PHBF, BFCT, GLUBF, LDBF #### [address] [address] BUN/Creatinine Ratio 25.3 ratio High 10.0-22.0 [facility] Comment on above: Order Comment: vrb- called critical CO2 to RN Mando Man 04/17/2025 06:09:20 EDT SAS Performed By: #### P ROBF, BFPR, PHBF, BFCT, GLUBF, LDBF #### [address] [address] Calcium [Mass/Vol] 9.4 mg/dL Normal 8.7-10.4 [facility] Comment on above: Order Comment: vrb- called critical CO2 to RN Mando Man 04/17/2025 06:09:20 EDT SAS Performed By: #### P ROBF, BFPR, PHBF, BFCT, GLUBF, LDBF #### [place] [address] Chloride [Moles/Vol] 88 mmol/L Low 98-110 [facility] Comment on above: Order Comment: vrb- called critical CO2 to RN Mando Man 04/17/2025 06:09:20 EDT SAS Performed By: #### P ROBF, BFPR, PHBF, BFCT, GLUBF, LDBF #### [address] [address] Creatinine [Mass/Vol] 1.62 mg/dL High 0.60-1.40 [facility] Comment on above: Order Comment: vrb- called critical CO2 to RN Mando Man 04/17/2025 06:09:20 EDT SAS Result Comment: Test ing performed on NXE analyzer using enzymatic creatinine methodology. Performed By: #### P ROBF, BFPR, PHBF, BFCT, GLUBF, LDBF #### [address] [address] Globulin 3.5 G/dL Normal 2.5-4.2 [facility] Comment on above: Order Comment: vrb- called critical CO2 to RN Mando Man 04/17/2025 06:09:20 EDT SAS Performed By: #### P ROBF, BFPR, PHBF, BFCT, GLUBF, LDBF #### [address] [address] Glucose [Mass/Vol] 174 mg/dL High 82-115 [facility] Comment on above: Order Comment: vrb- called critical CO2 to RN Mando Man 04/17/2025 06:09:20 EDT SAS Performed By: #### P ROBF, BFPR, PHBF, BFCT, GLUBF, LDBF #### [address] [address] Potassium [Moles/Vol] 3.7 mmol/L Normal 3.5-5.0 [facility] Comment on above: Order Comment: vrb- called critical CO2 to RN Mando Man 04/17/2025 06:09:20 EDT SAS Performed By: #### P ROBF, BFPR, PHBF, BFCT, GLUBF, LDBF #### [address] [address] Sodium [Moles/Vol] 137 mmol/L Normal 136-145 [facility] Comment on above: Order Comment: vrb- called critical CO2 to RN Mando Man 04/17/2025 06:09:20 EDT [facility] Performed By: #### P ROBF, BFPR, PHBF, BFCT, GLUBF, LDBF #### [address] [address] Total Protein 6.2 G/dL Normal 5.7-8.2 [facility] Comment on above: Order Comment: vrb- called critical CO2 to RN Mando Man 04/17/2025 06:09:20 EDT [facility] Performed By: #### P ROBF, BFPR, PHBF, BFCT, GLUBF, LDBF #### [address] [address] Urea nitrogen [Mass/Vol] 41.0 mg/dL High 8.0-22.0 [facility] Comment on above: Order Comment: vrb- called critical CO2 to RN Mando Man 04/17/2025 06:09:20 EDT SAS Performed By: #### P ROBF, BFPR, PHBF, BFCT, GLUBF, LDBF #### [place] [address] CO2 [Moles/Vol] mmol/L Critically abnormal 22-32 [facility] Comment on above: Order Comment: vrb- called critical CO2 to RN Mando Man 04/17/2025 06:09:20 EDT SAS Performed By: #### P ROBF, BFPR, PHBF, BFCT, GLUBF, LDBF #### [place] [address] Electrolyte Balance See Comment Normal 4.0-15.0 [facility] Comment on above: Order Comment: vrb- called critical CO2 to KHURRAM Man 04/17/2025 06:09:20 EDT SAS Result Comment: Unab le to calculate this test result accurately. Results used to calculate this test are outside the reportable range. Performed By: #### P ROBF, BFPR, PHBF, BFCT, GLUBF, LDBF #### [place] [address] FT4on 04-17-2025 Free T4 [Mass/Vol] 0.88 ng/dL Low 0.89-1.76 [facility] Comment on above: Order Comment: Order ed by Discern Result Comment: No te - New Reference Range in effect 20 Performed By: #### P ROBF, BFPR, PHBF, BFCT, GLUBF, LDBF #### [place] [address] LABORATORYOrdered By: SYSTEM SYSTEM on 04-17-2025 aPTT [...] 21 U/L Normal 12 - 55 U/L ADM SS aPTT Coag (Bld) [Time] 68.5 [...] mg/dL Normal 0.20 - 1.20 mg/dL ADM Comment on above: Interpretive Data: U se of this assay is not recommended for patients undergoing treatment with eltrombopag due to the potential for falsely elevated results. Calcium [Mass/Vol] 9.4 mg/dL Normal 8.7 - 10. 4 mg/dL ADM SS Chloride [Moles/Vol] 88 mmol/L Low 98 - 11 0 mEq/L ADM SS Creatinine [Mass/Vol] 1.62 mg/dL High 0.60 - 1.40 mg/dL [facility] Comment on above: Interpretive Data: T esting performed on NXE analyzer using enzymatic creatinine methodology. Eosinophils (Bld) [...] 80.1 % High 50.0 - 75.0 % Workflow [...] 04-17-2025 Magnesium [Mass/Vol] 1.8 mg/dL Normal 1.6-2.4 [facility] Comment on above: Performed By: #### P ROBF, BFPR, PHBF, BFCT, GLUBF, LDBF #### [place] [address] Non-Sugar Drier Cytology Reporton Non-Sugar Drier Cytology Report . Pathology Reports Accession: Collected Date/Time: Received Date/Time: Pathologist: [id number] 04/15/2025 10:30 EDT 04/16/2025 08:56 EDT MÓNICA VIEIRA MD Non-Sugar Drier Cytology Report CLINICAL INFORMATION: Pleural effusion DIAGNOSTIC CATEGORY: NEGATIVE FOR MALIGNANCY. SPECIMEN: Right pleural fluid GROSS DESCRIPTION: # of Blocks: 1 # of Monolayers: 1 Volume (ml) 950 Color: fresh cloudy red/orange fluid Verified by Pathology Report verified by [facility] Screened by: ANMOL GARCIA Electronically signed by MÓNICA VIEIRA Sign-Out Date: 04/17/2025 14:51 Performing Lab: [facility], [address] [place] [address] Pathology Dept Disclaimer If ancillary studies were [...] regarded as investigational or for research. Normal [facility] TSHRon 04-17-2025 TSH 4.806 mIU/mL High 0.550-4.78 0 [facility] Comment on above: Performed By: #### P ROBF, BFPR, PHBF, BFCT, GLUBF, LDBF #### [place] [address] XR CHEST 1 VIEWon 04-17-2025 XR CHEST [...] 04/17/2025 8:12:37 AM Ordering Provider: GLORIA Francois [facility] .Auto Diffon 04-16-2025 Basophil, Absolute 0.0 10 3/mcL Normal 0.0-0.3 [facility] Comment on above: Performed By: #### P ROBF, BFPR, PHBF, BFCT, GLUBF, LDBF #### [address] [address] Basophils/100 WBC (Bld) 0.1 % Normal 0.0-2.5 [facility] Comment on above: Performed By: #### P ROBF, BFPR, PHBF, BFCT, GLUBF, LDBF #### [address] [address] Eosinophil, Absolute 0.5 10 3/mcL Normal 0.0-0.7 [facility] Comment on above: Performed By: #### P ROBF, BFPR, PHBF, BFCT, GLUBF, LDBF #### [address] [address] Eosinophils/100 WBC (Bld) 5.3 % Normal 0.0-6.0 [facility] Comment on above: Performed By: #### P ROBF, BFPR, PHBF, BFCT, GLUBF, LDBF #### [address] [address] Lymphocyte, Absolute 0.4 10 3/mcL Low 0.9-4.3 [facility] Comment on above: Performed By: #### P ROBF, BFPR, PHBF, BFCT, GLUBF, LDBF #### [address] [address] Lymphocytes/100 WBC (Bld) 4.8 % Low 20.0-40.0 [facility] Comment on above: Performed By: #### P ROBF, BFPR, PHBF, BFCT, GLUBF, LDBF #### [address] [address] Monocyte, Absolute 0.7 10 3/mcL Normal 0.1-1.4 [facility] Comment on above: Performed By: #### P ROBF, BFPR, PHBF, BFCT, GLUBF, LDBF #### [address] [address] Monocytes/100 WBC (Bld) 8.3 % Normal 2.0-13.0 [facility] Comment on above: Performed By: #### P ROBF, BFPR, PHBF, BFCT, GLUBF, LDBF #### [address] [address] Neutrophils/100 WBC (Bld) 81.5 % High 50.0-75.0 [facility] Comment on above: Performed By: #### P ROBF, BFPR, PHBF, BFCT, GLUBF, LDBF #### [address] [address] .GFRon 04-16-2025 Estimated Glomerular Filtration Rate 48 ml/min/1.73sqm Normal [facility] Comment on above: Result Comment: [...] ROBF, BFPR, PHBF, BFCT, GLUBF, LDBF #### [place] [address] .NEUABSon 04-16-2025 Neutrophil, Absolute 7.3 10 3/mcL Normal 2.3-8.1 [facility] Comment on above: Performed By: #### P ROBF, BFPR, PHBF, BFCT, GLUBF, LDBF #### [place] [address] APTTon 04-16-2025 aPTT Coag (Bld) [Time] 63.1 s High 25.0-35.0 [facility] Comment on above: Result Comment: For Heparin anticoagulation therapy, the recommended therapeutic range is: 54-77 seconds (APTT Correlation with Anti-Xa therapeutic range of 0.3-0.7 units/ml). PLEASE REFERENCE THE PHARMACY PROTOCOL FOR DOSING. Performed By: #### P ROBF, BFPR, PHBF, BFCT, GLUBF, LDBF #### [place] [address] aPTT Coag (Bld) [Time] 55.6 s High 25.0-35.0 [facility] Comment on above: Result Comment: For Heparin anticoagulation therapy, the recommended therapeutic range is: 54-77 seconds (APTT Correlation with Anti-Xa therapeutic range of 0.3-0.7 units/ml). PLEASE REFERENCE THE PHARMACY PROTOCOL FOR DOSING. Performed By: #### A PTT #### [place] [address] CBCon 04-16-2025 Erythrocyte distribution width (RBC) [Ratio] 18.8 % High 11.5-15.5 [facility] Comment on above: Performed By: #### P ROBF, BFPR, PHBF, BFCT, GLUBF, LDBF #### [place] [address] Hematocrit (Bld) [Volume fraction] 27.9 % Low 40.0-52.0 [facility] Comment on above: Performed By: #### P ROBF, BFPR, PHBF, BFCT, GLUBF, LDBF #### [place] [address] Hgb 9.1 G/dL Low 13.0-17.5 [facility] Comment on above: Performed By: #### P ROBF, BFPR, PHBF, BFCT, GLUBF, LDBF #### [place] [id number] MCH (RBC) [Entitic mass] 27.8 pg Normal 27.0-33.0 [facility] Comment on above: Performed By: #### P ROBF, BFPR, PHBF, BFCT, GLUBF, LDBF #### [place] [address] MCHC 32.8 G/dL Normal 32.0-36.0 [facility] Comment on above: Performed By: #### P ROBF, BFPR, PHBF, BFCT, GLUBF, LDBF #### [place] [address] MCV (RBC) [Entitic vol] 84.7 fL Normal 81.0-100.0 [facility] Comment on above: Performed By: #### P ROBF, BFPR, PHBF, BFCT, GLUBF, LDBF #### [place] [address] Platelet 158 10 3/mcL Normal 150-450 [facility] Comment on above: Performed By: #### P ROBF, BFPR, PHBF, BFCT, GLUBF, LDBF #### [place] [address] Platelet mean volume (Bld) [Entitic vol] 8.7 fL Normal 6.4-10.5 [facility] Comment on above: Performed By: #### P ROBF, BFPR, PHBF, BFCT, GLUBF, LDBF #### [place] [address] RBC 3.29 10 6/mcL Low 4.50-6.00 [facility] Comment on above: Performed By: #### P ROBF, BFPR, PHBF, BFCT, GLUBF, LDBF #### [place] [id number] WBC 9.0 10 3/mcL Normal 4.5-10.8 [facility] Comment on above: Performed By: #### P ROBF, BFPR, PHBF, BFCT, GLUBF, LDBF #### [address] [address] CMPon 04-16-2025 Albumin Level 2.6 G/dL Low 3.2-4.8 [facility] Comment on above: Performed By: #### P ROBF, BFPR, PHBF, BFCT, GLUBF, LDBF #### [place] [id number] Albumin/Globulin [Mass ratio] 0.8 {ratio} Low 0.9-1.6 [facility] Comment on above: Performed By: #### P ROBF, BFPR, PHBF, BFCT, GLUBF, LDBF #### [place] [address] ALP [Catalytic activity/Vol] 59 U/L Normal 38-126 [facility] Comment on above: Performed By: #### P ROBF, BFPR, PHBF, BFCT, GLUBF, LDBF #### [place] [address] ALT [Catalytic activity/Vol] 23 U/L Normal 12-55 [facility] Comment on above: Performed By: #### P ROBF, BFPR, PHBF, BFCT, GLUBF, LDBF #### [place] [address] AST [Catalytic activity/Vol] 17 U/L Normal 8-34 [facility] Comment on above: Performed By: #### P ROBF, BFPR, PHBF, BFCT, GLUBF, LDBF #### [place] [address] Bili Total 0.50 mg/dL Normal 0.20-1.20 [facility] Comment on above: Result Comment: Use of this assay is not recommended for patients undergoing treatment with eltrombopag due to the potential for falsely elevated results. Performed By: #### P ROBF, BFPR, PHBF, BFCT, GLUBF, LDBF #### [place] [id number] BUN/Creatinine Ratio 22.6 ratio High 10.0-22.0 [facility] Comment on above: Performed By: #### P ROBF, BFPR, PHBF, BFCT, GLUBF, LDBF #### [place] [id number] Calcium [Mass/Vol] 9.2 mg/dL Normal 8.7-10.4 [facility] Comment on above: Performed By: #### P ROBF, BFPR, PHBF, BFCT, GLUBF, LDBF #### [place] [address] Chloride [Moles/Vol] 91 mmol/L Low 98-110 [facility] Comment on above: Performed By: #### P ROBF, BFPR, PHBF, BFCT, GLUBF, LDBF #### [place] [id number] CO2 [Moles/Vol] 38 mmol/L High 22-32 [facility] Comment on above: Performed By: #### P ROBF, BFPR, PHBF, BFCT, GLUBF, LDBF #### [place] [id number] Creatinine [Mass/Vol] 1.46 mg/dL High 0.60-1.40 [facility] Comment on above: Result Comment: Test ing performed on NXE analyzer using enzymatic creatinine methodology. Performed By: #### P ROBF, BFPR, PHBF, BFCT, GLUBF, LDBF #### [place] [id number] Electrolyte Balance 9.0 mEq/L Normal 4.0-15.0 [facility] Comment on above: Performed By: #### P ROBF, BFPR, PHBF, BFCT, GLUBF, LDBF #### [place] [id number] Globulin 3.2 G/dL Normal 2.5-4.2 [facility] Comment on above: Performed By: #### P ROBF, BFPR, PHBF, BFCT, GLUBF, LDBF #### [address] [address] Glucose [Mass/Vol] 144 mg/dL High 82-115 [facility] Comment on above: Performed By: #### P ROBF, BFPR, PHBF, BFCT, GLUBF, LDBF #### [address] [address] Potassium [Moles/Vol] 3.7 mmol/L Normal 3.5-5.0 [facility] Comment on above: Performed By: #### P ROBF, BFPR, PHBF, BFCT, GLUBF, LDBF #### [address] [address] Sodium [Moles/Vol] 138 mmol/L Normal 136-145 [facility] Comment on above: Performed By: #### P ROBF, BFPR, PHBF, BFCT, GLUBF, LDBF #### [address] [address] Total Protein 5.8 G/dL Normal 5.7-8.2 [facility] Comment on above: Performed By: #### P ROBF, BFPR, PHBF, BFCT, GLUBF, LDBF #### [address] [address] Urea nitrogen [Mass/Vol] 33.0 mg/dL High 8.0-22.0 [facility] Comment on above: Performed By: #### P ROBF, BFPR, PHBF, BFCT, GLUBF, LDBF #### [address] [address] LABORATORYOrdered By: Mónica Brown on 04-16-2025 Blood Glucose Testing Reason Routine (04/16/25 9:15 PM) [facility] Work Phone: Glucose [Mass/Vol] 207 mg/dL High 82 - 115 mg/dL [facility] Work Phone: LABORATORYOrdered By: SYSTEM SYSTEM on 04-16-2025 Albumin BCP dye [Mass/Vol] 2.6 G/dL Low 3.2 - 4.8 G/dL AH ADM SS Albumin/Globulin [Mass ratio] 0.8 {ratio} Low 0.9 - 1.6 ratio AH ADM SS ALP [Catalytic activity/Vol] 59 U/L Normal 38 - 126 U/L AH ADM SS ALT No additional P-5'-P [Catalytic activity/Vol] 23 U/L Normal 12 - 55 U/L AH ADM SS aPTT Coag (Bld) [Time] 63.1 s High 25.0 - 35.0 seconds AH [...] mg/dL Normal 8.7 - 10. 4 mg/dL AH ADM SS Chloride [Moles/Vol] 91 mmol/L Low 98 - 11 0 mEq/L ADM SS CO2 [Moles/Vol] 38 mmol/L High 22 - 32 mEq/L AH ADM SS Creatinine [Mass/Vol] 1.46 mg/dL High 0.60 - 1.40 mg/dL AH ADM SS Comment on above: Interpretive Data: T esting performed on NXE analyzer using enzymatic creatinine methodology. Electrolyte Balance 9.0 mEq/L Normal 4.0 - 15 .0 mEq/L AH ADM SS Eosinophils (Bld) [#/Vol] 0.5 103/mcL Normal 0.0 - 0.7 10^3/mcL AH Workflow SS Eosinophils/100 WBC (Bld) 5.3 % Normal 0.0 - 6.0 % AH Workflow SS Erythrocyte distribution width (RBC) [Ratio] [...] 27.9 % Low 40.0 - 52.0 % AH Workflow SS Hemoglobin (Bld) [Mass/Vol] 9.1 G/dL [...] 32.8 G/dL Normal 32.0 - 36.0 G/dL Workflow SS MCV (RBC) [Entitic vol] 84.7 fL Normal 81.0 - 100.0 fL Workflow SS Monocytes (Bld) [#/Vol] 0.7 103/mcL [...] 5.8 G/dL Normal 5.7 - 8.2 G/dL ADM SS RBC (Bld) [#/Vol] 3.29 106/mcL Low 4.50 - 6.00 10^6/mcL AH Workflow SS Sodium [Moles/Vol] 138 mmol/L Normal 136 - 145 mEq/L ADM SS Urea nitrogen [Mass/Vol] 33.0 mg/dL High 8.0 - 22.0 mg/dL ADM SS Urea nitrogen/Creatinine [Mass ratio] 22.6 ratio High 10.0 - 22.0 ratio AH ADM SS WBC (Bld) [#/Vol] 9.0 103/mcL Normal 4.5 - 10.8 10^3/mcL Workflow SS MGon 04-16-2025 Magnesium [Mass/Vol] 1.8 mg/dL Normal 1.6-2.4 [facility] Comment on above: Performed By: #### P ROBF, BFPR, PHBF, BFCT, GLUBF, LDBF #### [address] [address] .Auto Diffon 04-15-2025 Basophil, Absolute 0.0 10 3/mcL Normal 0.0-0.3 [facility] Comment on above: Performed By: #### P ROBF, BFPR, PHBF, BFCT, GLUBF, LDBF #### [address] [address] Basophils/100 WBC (Bld) 0.1 % Normal 0.0-2.5 [facility] Comment on above: Performed By: #### P ROBF, BFPR, PHBF, BFCT, GLUBF, LDBF #### [address] [address] Eosinophil, Absolute 0.4 10 3/mcL Normal 0.0-0.7 [facility] Comment on above: Performed By: #### P ROBF, BFPR, PHBF, BFCT, GLUBF, LDBF #### [address] [address] Eosinophils/100 WBC (Bld) 4.1 % Normal 0.0-6.0 [facility] Comment on above: Performed By: #### P ROBF, BFPR, PHBF, BFCT, GLUBF, LDBF #### [address] [address] Lymphocyte, Absolute 0.4 10 3/mcL Low 0.9-4.3 [facility] Comment on above: Performed By: #### P ROBF, BFPR, PHBF, BFCT, GLUBF, LDBF #### [address] [address] Lymphocytes/100 WBC (Bld) 4.5 % Low 20.0-40.0 [facility] Comment on above: Performed By: #### P ROBF, BFPR, PHBF, BFCT, GLUBF, LDBF #### [address] [address] Monocyte, Absolute 0.8 10 3/mcL Normal 0.1-1.4 [facility] Comment on above: Performed By: #### P ROBF, BFPR, PHBF, BFCT, GLUBF, LDBF #### [address] [address] Monocytes/100 WBC (Bld) 8.5 % Normal 2.0-13.0 [facility] Comment on above: Performed By: #### P ROBF, BFPR, PHBF, BFCT, GLUBF, LDBF #### [address] [address] Neutrophils/100 WBC (Bld) 82.8 % High 50.0-75.0 [facility] Comment on above: Performed By: #### P ROBF, BFPR, PHBF, BFCT, GLUBF, LDBF #### [address] [address] .GFRon 04-15-2025 Estimated Glomerular Filtration Rate 50 ml/min/1.73sqm Normal [facility] Comment on above: Result Comment: [...] ROBF, BFPR, PHBF, BFCT, GLUBF, LDBF #### [address] [address] .NEUABSon 04-15-2025 Neutrophil, Absolute 7.8 10 3/mcL Normal 2.3-8.1 [facility] Comment on above: Performed By: #### P ROBF, BFPR, PHBF, BFCT, GLUBF, LDBF #### [address] [address] APTTon 04-15-2025 aPTT Coag (Bld) [Time] 55.0 s High 25.0-35.0 [facility] Comment on above: Result Comment: For Heparin anticoagulation therapy, the recommended therapeutic range is: 54-77 seconds (APTT Correlation with Anti-Xa therapeutic range of 0.3-0.7 units/ml). PLEASE REFERENCE THE PHARMACY PROTOCOL FOR DOSING. Performed By: #### P ROBF, BFPR, PHBF, BFCT, GLUBF, LDBF #### [address] [address] BFCTon 04-15-2025 Cells Counted BF 100 Normal [facility] Comment on above: Performed By: #### P ROBF, BFPR, PHBF, BFCT, GLUBF, LDBF #### [address] [address] Lymphocytes/100 WBC (Bld) 47 % Normal [facility] Comment on above: Performed By: #### P ROBF, BFPR, PHBF, BFCT, GLUBF, LDBF #### [address] [address] Mesothelial Cell % BF 4 % Normal [facility] Comment on above: Performed By: #### P ROBF, BFPR, PHBF, BFCT, GLUBF, LDBF #### [address] [address] Mononuclear cell % BF 1 % Normal [facility] Comment on above: Performed By: #### P ROBF, BFPR, PHBF, BFCT, GLUBF, LDBF #### [address] [address] Neutrophils/100 WBC (Bld) 48 % [facility] Comment on above: Performed By: #### P ROBF, BFPR, PHBF, BFCT, GLUBF, LDBF #### [address] [address] Total Nucleated Cells 172 /mm3 Normal [facility] Comment on above: Performed By: #### P ROBF, BFPR, PHBF, BFCT, GLUBF, LDBF #### [address] [address] Body Fluid Source Pleural fluid Normal [facility] Comment on above: Result Comment: Refe rence ranges have not been established for this body fluid. The test results must be integrated into the clinical context for interpretation. Performed By: #### P ROBF, BFPR, PHBF, BFCT, GLUBF, LDBF #### [address] [address] BMPon 04-15-2025 BUN/Creatinine Ratio 30.8 ratio High 10.0-22.0 [facility] Comment on above: Performed By: #### P ROBF, BFPR, PHBF, BFCT, GLUBF, LDBF #### [address] [address] Calcium [Mass/Vol] 8.7 mg/dL Normal 8.7-10.4 [facility] Comment on above: Performed By: #### P ROBF, BFPR, PHBF, BFCT, GLUBF, LDBF #### [address] [address] Chloride [Moles/Vol] 94 mmol/L Low 98-110 [facility] Comment on above: Performed By: #### P ROBF, BFPR, PHBF, BFCT, GLUBF, LDBF #### [address] [address] CO2 [Moles/Vol] 39 mmol/L High 22-32 [facility] Comment on above: Performed By: #### P ROBF, BFPR, PHBF, BFCT, GLUBF, LDBF #### [address] [address] Creatinine [Mass/Vol] 1.43 mg/dL High 0.60-1.40 [facility] Comment on above: Result Comment: Test ing performed on NXE analyzer using enzymatic creatinine methodology. Performed By: #### P ROBF, BFPR, PHBF, BFCT, GLUBF, LDBF #### [address] [address] Electrolyte Balance 7.0 mEq/L Normal 4.0-15.0 [facility] Comment on above: Performed By: #### P ROBF, BFPR, PHBF, BFCT, GLUBF, LDBF #### [address] [address] Glucose [Mass/Vol] 134 mg/dL High 82-115 [facility] Comment on above: Performed By: #### P ROBF, BFPR, PHBF, BFCT, GLUBF, LDBF #### [place] [id number] Potassium [Moles/Vol] 3.8 mmol/L Normal 3.5-5.0 [facility] Comment on above: Performed By: #### P ROBF, BFPR, PHBF, BFCT, GLUBF, LDBF #### [place] [address] Sodium [Moles/Vol] 140 mmol/L Normal 136-145 [facility] Comment on above: Performed By: #### P ROBF, BFPR, PHBF, BFCT, GLUBF, LDBF #### [place] [address] Urea nitrogen [Mass/Vol] 44.0 mg/dL High 8.0-22.0 [facility] Comment on above: Performed By: #### P ROBF, BFPR, PHBF, BFCT, GLUBF, LDBF #### [place] [id number] CBCon 04-15-2025 Erythrocyte distribution width (RBC) [Ratio] 17.9 % High 11.5-15.5 [facility] Comment on above: Performed By: #### P ROBF, BFPR, PHBF, BFCT, GLUBF, LDBF #### [place] [address] Hematocrit (Bld) [Volume fraction] 26.7 % Low 40.0-52.0 [facility] Comment on above: Performed By: #### P ROBF, BFPR, PHBF, BFCT, GLUBF, LDBF #### [place] [address] Hgb 8.6 G/dL Low 13.0-17.5 [facility] Comment on above: Performed By: #### P ROBF, BFPR, PHBF, BFCT, GLUBF, LDBF #### [place] [address] MCH (RBC) [Entitic mass] 26.9 pg Low 27.0-33.0 [facility] Comment on above: Performed By: #### P ROBF, BFPR, PHBF, BFCT, GLUBF, LDBF #### [place] [id number] MCHC 32.1 G/dL Normal 32.0-36.0 [facility] Comment on above: Performed By: #### P ROBF, BFPR, PHBF, BFCT, GLUBF, LDBF #### [place] [address] MCV (RBC) [Entitic vol] 83.9 fL Normal 81.0-100.0 [facility] Comment on above: Performed By: #### P ROBF, BFPR, PHBF, BFCT, GLUBF, LDBF #### [place] [address] Platelet 169 10 3/mcL Normal 150-450 [facility] Comment on above: Performed By: #### P ROBF, BFPR, PHBF, BFCT, GLUBF, LDBF #### [place] [address] Platelet mean volume (Bld) [Entitic vol] 8.2 fL Normal 6.4-10.5 [facility] Comment on above: Performed By: #### P ROBF, BFPR, PHBF, BFCT, GLUBF, LDBF #### [place] [address] RBC 3.18 10 6/mcL Low 4.50-6.00 [facility] Comment on above: Performed By: #### P ROBF, BFPR, PHBF, BFCT, GLUBF, LDBF #### [place] [address] WBC 9.4 10 3/mcL Normal 4.5-10.8 [facility] Comment on above: Performed By: #### P ROBF, BFPR, PHBF, BFCT, GLUBF, LDBF #### [place] [address] GLUBFon 04-15-2025 Glucose Body Fluid Spec Type Pleural fluid Normal [facility] Comment on above: Result Comment: The reference interval(s) and other method performance specifications have not been established for this body fluid. The test result must be integrated into the clinical content for interpretation. Performed By: #### P ROBF, BFPR, PHBF, BFCT, GLUBF, LDBF #### [place] [id number] Glucose BF 191.0 mg/dL Normal [facility] Comment on above: Performed By: #### P ROBF, BFPR, PHBF, BFCT, GLUBF, LDBF #### [place] [address] HFPon 04-15-2025 Bili Indirect 0.2 mg/dL Normal 0.1-10.0 [facility] Comment on above: Performed By: #### T MADHAVI #### [place] [id number] Albumin Level 2.9 G/dL Low 3.2-4.8 [facility] Comment on above: Performed By: #### T MADHAVI #### [place] [id number] Albumin/Globulin [Mass ratio] 0.8 {ratio} Low 0.9-1.6 [facility] Comment on above: Performed By: #### T MADHAVI #### [place] [id number] ALP [Catalytic activity/Vol] 65 U/L Normal 38-126 [facility] Comment on above: Performed By: #### T MADHAVI #### [place] [id number] ALT [Catalytic activity/Vol] 29 U/L Normal 12-55 [facility] Comment on above: Performed By: #### T MADHAVI #### [place] [address] AST [Catalytic activity/Vol] 23 U/L Normal 8-34 [facility] Comment on above: Performed By: #### T MADHAVI #### [place] [address] Bili Direct 0.2 mg/dL Normal 0.0-0.4 [facility] Comment on above: Result Comment: Use of this assay is not recommended for patients undergoing treatment with eltrombopag due to the potential for falsely elevated results. Performed By: #### T MADHAVI #### [place] [id number] Bili Total 0.40 mg/dL Normal 0.20-1.20 [facility] Comment on above: Result Comment: Use of this assay is not recommended for patients undergoing treatment with eltrombopag due to the potential for falsely elevated results. Performed By: #### T MADHAVI #### [place] [address] Globulin 3.6 G/dL Normal 2.5-4.2 [facility] Comment on above: Performed By: #### T MADHAVI #### [place] [address] Total Protein 6.5 G/dL Normal 5.7-8.2 [facility] Comment on above: Performed By: #### T MADHAVI #### [place] [id number] LABORATORYOrdered By: SYSTEM SYSTEM on 04-15-2025 Albumin [...] mg/dL Normal 0.0 - 0.4 mg/dL ADM Comment on above: Interpretive Data: U se [...] above: Interpretive Data: T esting performed on NXE analyzer using enzymatic creatinine methodology. Electrolyte Balance [...] 26.7 % Low 40.0 - 52.0 % [facility] Workflow SS Hemoglobin (Bld) [Mass/Vol] 8.6 G/dL Low 13.0 - 17.5 G/dL [facility] Workflow SS Lymphocytes (Bld) [#/Vol] 0.4 103/mcL Low 0.9 - 4.3 10^3/mcL [facility] Workflow SS Lymphocytes/100 WBC (Bld) 4.5 % [...] Body Fluid Spec Type Pleural fluid Normal [facility] Comment on above: Result Comment: The reference interval(s) and other method performance specifications have not been established for this body fluid. The test result must be integrated into the clinical content for interpretation. . Performed By: #### P ROBF, BFPR, PHBF, BFCT, GLUBF, LDBF #### [address] [address] LDH BF 137.0 U/L Normal [facility] Comment on above: Performed By: #### P ROBF, BFPR, PHBF, BFCT, GLUBF, LDBF #### [address] [address] LDHon 04-15-2025 LDH 216 U/L Normal 120-246 [facility] Comment on above: Performed By: #### T ROPHS #### [address] [address] MGon 04-15-2025 Magnesium [Mass/Vol] 1.8 mg/dL Normal 1.6-2.4 [facility] Comment on above: Performed By: #### P ROBF, BFPR, PHBF, BFCT, GLUBF, LDBF #### [address] [address] No Panel Informationon 04-15 AFS Acid Fast [...] organisms seen. [facility] Work Phone: Non-Sugar Drier Cytology Reporton Non-Sugar Drier Cytology Report Event Display: N G Specimen Right pleural fluid MÓNICA VIEIRA MD:VERIFY; Authored Date: [facility] Work Phone: Non-Sugar Drier Cytology Report Event Display: N G Signature Pathology Report verified by [facility] Screened by: ANMOL GARCIA Electronically signed by MÓNICA VIEIRA Sign-Out Date: 04/17/2025 14:51 Performing Lab: [facility], [address] [place] [address] Pathology Dept MÓNICA VIEIRA MD:VERIFY; Authored Date: [facility] Work Phone: Non-Sugar Drier Cytology Report Event Display: N G Clin Info Pleural effusion MÓNICA VIEIRA MD:VERIFY; Authored Date: [facility] Work Phone: Non-Sugar Drier Cytology Report Event Display: N G Diagnostic Category Interp NEGATIVE FOR MALIGNANCY. MÓNICA VIEIRA MD:VERIFY; Authored Date: [facility] Work Phone: Non-Sugar Drier Cytology Report Event Display: N G Gross # of Blocks: 1 # of Monolayers: 1 Volume (ml) 950 Color: fresh cloudy red/orange fluid MÓNICA VIEIRA MD:VERIFY; Authored Date: [facility] Work Phone: Non-Sugar Drier Cytology Report Event Display: N G Disclaimer [...] for research. MÓNICA VIEIRA MD:VERIFY; Authored Date: [id number] [facility] Work Phone: PBon 04-15-2025 Natriuretic peptide B (Bld) [Mass/Vol] 4360 pg/mL High 0-1800 [facility] Comment on above: Performed By: #### P ROBF, BFPR, PHBF, BFCT, GLUBF, LDBF #### [place] [address] PHBFon 04-15-2025 pH BF 7.4 Normal [facility] Comment on above: Result Comment: domingo becerril Performed By: #### P ROBF, BFPR, PHBF, BFCT, GLUBF, LDBF #### [place] [address] pH BF Spec Type Pleural fluid Normal [facility] Comment on above: Result Comment: The reference interval(s) and other method performance specifications have not been established for this body fluid. The test result must be integrated into the clinical content for interpretation. Performed By: #### P ROBF, BFPR, PHBF, BFCT, GLUBF, LDBF #### [place] [address] PROBFon 04-15-2025 Protein BF Type Pleural fluid Normal [facility] Comment on above: Result Comment: The reference interval(s) and other method performance specifications have not been established for this body fluid. The test result must be integrated into the clinical content for interpretation. Performed By: #### P ROBF, BFPR, PHBF, BFCT, GLUBF, LDBF #### [place] [address] Protein BF <2.0 [facility] Comment on above: Performed By: #### P ROBF, BFPR, PHBF, BFCT, GLUBF, LDBF #### [address] [address] XR CHEST 1 VIEWon 04-15-2025 XR CHEST [...] 04/15/2025 11:43:46 AM Ordering Provider: OLAMIDE GONZALEZ [facility] MAIN XR CHEST 1 VIEW ORIGINAL EXAMINATION: [...] 04/15/2025 7:22:03 AM Ordering Provider: GLORIA DAVIS [facility] .Auto Diffon 04-14-2025 Basophil, Absolute 0.0 10 3/mcL Normal 0.0-0.3 [facility] Comment on above: Performed By: #### P ROBF, BFPR, PHBF, BFCT, GLUBF, LDBF #### [address] [address] Basophils/100 WBC (Bld) 0.2 % Normal 0.0-2.5 [facility] Comment on above: Performed By: #### P ROBF, BFPR, PHBF, BFCT, GLUBF, LDBF #### [address] [address] Eosinophil, Absolute 0.2 10 3/mcL Normal 0.0-0.7 [facility] Comment on above: Performed By: #### P ROBF, BFPR, PHBF, BFCT, GLUBF, LDBF #### [address] [address] Eosinophils/100 WBC (Bld) 1.9 % Normal 0.0-6.0 [facility] Comment on above: Performed By: #### P ROBF, BFPR, PHBF, BFCT, GLUBF, LDBF #### [address] [address] Lymphocyte, Absolute 0.4 10 3/mcL Low 0.9-4.3 [facility] Comment on above: Performed By: #### P ROBF, BFPR, PHBF, BFCT, GLUBF, LDBF #### [address] [address] Lymphocytes/100 WBC (Bld) 4.0 % Low 20.0-40.0 [facility] Comment on above: Performed By: #### P ROBF, BFPR, PHBF, BFCT, GLUBF, LDBF #### [address] [address] Monocyte, Absolute 0.9 10 3/mcL Normal 0.1-1.4 [facility] Comment on above: Performed By: #### P ROBF, BFPR, PHBF, BFCT, GLUBF, LDBF #### [address] [address] Monocytes/100 WBC (Bld) 8.3 % Normal 2.0-13.0 [facility] Comment on above: Performed By: #### P ROBF, BFPR, PHBF, BFCT, GLUBF, LDBF #### [place] [address] Neutrophils/100 WBC (Bld) 85.6 % High 50.0-75.0 [facility] Comment on above: Performed By: #### P ROBF, BFPR, PHBF, BFCT, GLUBF, LDBF #### [place] [id number] .GFRon 04-14-2025 Estimated Glomerular Filtration Rate 49 ml/min/1.73sqm Normal [facility] Comment on above: Result Comment: [...] results. Performed By: #### T ROPHS #### [place] [address] .NEUABSon 04-14-2025 Neutrophil, Absolute 9.2 10 3/mcL High 2.3-8.1 [facility] Comment on above: Performed By: #### P ROBF, BFPR, PHBF, BFCT, GLUBF, LDBF #### [place] [address] APTTon 04-14-2025 aPTT Coag (Bld) [Time] 28.2 s Normal 25.0-35.0 [facility] Comment on above: Result Comment: For Heparin anticoagulation therapy, the recommended therapeutic range is: 54-77 seconds (APTT Correlation with Anti-Xa therapeutic range of 0.3-0.7 units/ml). PLEASE REFERENCE THE PHARMACY PROTOCOL FOR DOSING. Performed By: #### A PTT, PRO #### [place] [address] [facility] 04-14-2025 BUN/Creatinine Ratio 32.4 ratio High 10.0-22.0 [facility] Comment on above: Performed By: #### T MADHAVI #### [address] [address] Calcium [Mass/Vol] 8.6 mg/dL Low 8.7-10.4 [facility] Comment on above: Performed By: #### T MADHAVI #### [place] [id number] Chloride [Moles/Vol] 98 mmol/L Normal 98-110 [facility] Comment on above: Performed By: #### T MADHAVI #### [place] [id number] CO2 [Moles/Vol] 40 mmol/L Critically abnormal 22-32 [facility] Comment on above: Performed By: #### T MADHAVI #### [place] [id number] Creatinine [Mass/Vol] 1.45 mg/dL High 0.60-1.40 [facility] Comment on above: Result Comment: Test ing performed on NXE analyzer using enzymatic creatinine methodology. Performed By: #### T MADHAVI #### [place] [id number] Electrolyte Balance 5.0 mEq/L Normal 4.0-15.0 [facility] Comment on above: Performed By: #### T MADHAVI #### [place] [id number] Glucose [Mass/Vol] 88 mg/dL Normal 82-115 [facility] Comment on above: Performed By: #### T MADHAVI #### [place] [id number] Potassium [Moles/Vol] 4.3 mmol/L Normal 3.5-5.0 [facility] Comment on above: Performed By: #### T MADHAVI #### [place] [id number] Sodium [Moles/Vol] 143 mmol/L Normal 136-145 [facility] Comment on above: Performed By: #### T MADHAVI #### [place] [address] Urea nitrogen [Mass/Vol] 47.0 mg/dL High 8.0-22.0 [facility] Comment on above: Performed By: #### T MADHAVI #### [place] [address] CBCon 04-14-2025 Erythrocyte distribution width (RBC) [Ratio] 18.4 % High 11.5-15.5 [facility] Comment on above: Performed By: #### P ROBF, BFPR, PHBF, BFCT, GLUBF, LDBF #### [place] [address] Hematocrit (Bld) [Volume fraction] 29.0 % Low 40.0-52.0 [facility] Comment on above: Performed By: #### P ROBF, BFPR, PHBF, BFCT, GLUBF, LDBF #### [place] [address] Hgb 9.0 G/dL Low 13.0-17.5 [facility] Comment on above: Performed By: #### P ROBF, BFPR, PHBF, BFCT, GLUBF, LDBF #### [place] [address] MCH (RBC) [Entitic mass] 26.3 pg Low 27.0-33.0 [facility] Comment on above: Performed By: #### P ROBF, BFPR, PHBF, BFCT, GLUBF, LDBF #### [place] [address] MCHC 31.0 G/dL Low 32.0-36.0 [facility] Comment on above: Performed By: #### P ROBF, BFPR, PHBF, BFCT, GLUBF, LDBF #### [place] [address] MCV (RBC) [Entitic vol] 84.9 fL Normal 81.0-100.0 [facility] Comment on above: Performed By: #### P ROBF, BFPR, PHBF, BFCT, GLUBF, LDBF #### [place] [id number] [place] [address] Platelet 165 10 3/mcL Normal 150-450 [facility] Comment on above: Performed By: #### P ROBF, BFPR, PHBF, BFCT, GLUBF, LDBF #### [place] [id number] [place] [address] Platelet mean volume (Bld) [Entitic vol] 7.8 fL Normal 6.4-10.5 [facility] Comment on above: Performed By: #### P ROBF, BFPR, PHBF, BFCT, GLUBF, LDBF #### [place] [id number] RBC 3.41 10 6/mcL Low 4.50-6.00 [facility] Comment on above: Performed By: #### P ROBF, BFPR, PHBF, BFCT, GLUBF, LDBF #### [place] [id number] WBC 10.8 10 3/mcL Normal 4.5-10.8 [facility] Comment on above: Performed By: #### P ROBF, BFPR, PHBF, BFCT, GLUBF, LDBF #### [place] [address] LABORATORYOrdered By: SYSTEM SYSTEM on 04-14-2025 PT Coag (PPP) [Time] 13.9 s Normal 9.0 - 1 4.4 seconds YI ETIENNE Comment on above: Interpretive Data: E ffective 03/03/08, Protime results may be affected by some antibiotics (i.e. Ciprofloxacin, Azithromycin, Bactrim) which may potentiate the action of oral anticoagulants, with further increases in Protime/INR. PT International Ratio 1.2 ratio Invalid Interpretation Code YI ETIENNE Comment on above: Interpretive Data: Tyler mckeon [employer] (CHEST, 1992, 102:312S-25S) recommended therapeutic range for oral anticoagulant therapy is: LOW RISK: Prophylaxis of venous thrombosis INR: 2.0-3.0 Treatment of pulmonary embolism 2.0-3.0 Prevention of systemic embolism 2.0-3.0 HIGH RISK: Mechanical prosthetic valves 2.5-3.5 Troponin I.cardiac DL <= 0.01 ng/mL [Mass/Vol] 160 ng/L High 0 - 54 ng/L AH ADM SS Comment on above: Interpretive Data: High Sensitive Troponin I Reference Ranges: Female: 0-34 ng/L Male: 0-54 ng/L Testing performed on Webtalk IM analyzer using direct chemiluminescent technology. No Panel [...] Coag (PPP) [Relative time] 1.2 {INR} Normal [facility] Comment on above: Result Comment: The [employer] (CHEST, 1992, 102:312S-25S) recommended therapeutic range for oral anticoagulant therapy is: LOW RISK: Prophylaxis of venous thrombosis INR: 2.0-3.0 Treatment of pulmonary embolism 2.0-3.0 Prevention of systemic embolism 2.0-3.0 HIGH RISK: Mechanical prosthetic valves 2.5-3.5 Performed By: #### A PTT, PRO #### [facility] [address] [place] [address] PT Coag (PPP) [Time] 13.9 s Normal 9.0-14.4 [facility] Comment on above: Result Comment: Effe ctive 03/03/08, Protime results may be affected by some antibiotics (i.e. Ciprofloxacin, Azithromycin, Bactrim) which may potentiate the action of oral anticoagulants, with further increases in Protime/INR. Performed By: #### A PTT, PRO #### [address] [address] TROPHSon 04-14-2025 High Sensitivity Troponin I 160 ng/L High 0-54 [facility] Comment on above: Result Comment: High Sensitive Troponin I Reference Ranges: Female: 0-34 ng/L Male: 0-54 ng/L Testing performed on Webtalk IM analyzer using direct chemiluminescent technology. Performed By: #### T ROPHS #### [address] [address] XR CHEST 1 VIEWon 04-14-2025 XR CHEST [...] 04/14/2025 7:00:29 AM Ordering Provider: COLLEEN Francois [facility] .Auto Diffon 04-13-2025 Basophil, Absolute 0.0 10 3/mcL Normal 0.0-0.3 [facility] Comment on above: Performed By: #### P ROBF, BFPR, PHBF, BFCT, GLUBF, LDBF #### [address] [address] Basophils/100 WBC (Bld) 0.0 % Normal 0.0-2.5 [facility] Comment on above: Performed By: #### P ROBF, BFPR, PHBF, BFCT, GLUBF, LDBF #### [address] [address] Eosinophil, Absolute 0.0 10 3/mcL Normal 0.0-0.7 [facility] Comment on above: Performed By: #### P ROBF, BFPR, PHBF, BFCT, GLUBF, LDBF #### [address] [address] Eosinophils/100 WBC (Bld) 0.1 % Normal 0.0-6.0 [facility] Comment on above: Performed By: #### P ROBF, BFPR, PHBF, BFCT, GLUBF, LDBF #### [address] [address] Lymphocyte, Absolute 0.3 10 3/mcL Low 0.9-4.3 [facility] Comment on above: Performed By: #### P ROBF, BFPR, PHBF, BFCT, GLUBF, LDBF #### [address] [address] Lymphocytes/100 WBC (Bld) 3.0 % Low 20.0-40.0 [facility] Comment on above: Performed By: #### P ROBF, BFPR, PHBF, BFCT, GLUBF, LDBF #### [address] [address] Monocyte, Absolute 0.7 10 3/mcL Normal 0.1-1.4 [facility] Comment on above: Performed By: #### P ROBF, BFPR, PHBF, BFCT, GLUBF, LDBF #### [address] [address] Monocytes/100 WBC (Bld) 6.3 % Normal 2.0-13.0 [facility] Comment on above: Performed By: #### P ROBF, BFPR, PHBF, BFCT, GLUBF, LDBF #### [address] [address] Neutrophils/100 WBC (Bld) 90.6 % High 50.0-75.0 [facility] Comment on above: Performed By: #### P ROBF, BFPR, PHBF, BFCT, GLUBF, LDBF #### [address] [address] .GFRon 04-13-2025 Estimated Glomerular Filtration Rate 48 ml/min/1.73sqm Normal [facility] Comment on above: Result Comment: [...] ROBF, BFPR, PHBF, BFCT, GLUBF, LDBF #### [place] [address] .NEUABSon 04-13-2025 Neutrophil, Absolute 10.5 10 3/mcL High 2.3-8.1 [facility] Comment on above: Performed By: #### P ROBF, BFPR, PHBF, BFCT, GLUBF, LDBF #### [place] [address] CBCon 04-13-2025 Erythrocyte distribution width (RBC) [Ratio] 17.7 % High 11.5-15.5 [facility] Comment on above: Performed By: #### P ROBF, BFPR, PHBF, BFCT, GLUBF, LDBF #### [place] [address] Hematocrit (Bld) [Volume fraction] 29.7 % Low 40.0-52.0 [facility] Comment on above: Performed By: #### P ROBF, BFPR, PHBF, BFCT, GLUBF, LDBF #### [place] [address] Hgb 9.4 G/dL Low 13.0-17.5 [facility] Comment on above: Performed By: #### P ROBF, BFPR, PHBF, BFCT, GLUBF, LDBF #### [place] [address] MCH (RBC) [Entitic mass] 26.6 pg Low 27.0-33.0 [facility] Comment on above: Performed By: #### P ROBF, BFPR, PHBF, BFCT, GLUBF, LDBF #### [place] [address] MCHC 31.6 G/dL Low 32.0-36.0 [facility] Comment on above: Performed By: #### P ROBF, BFPR, PHBF, BFCT, GLUBF, LDBF #### [place] [address] MCV (RBC) [Entitic vol] 84.3 fL Normal 81.0-100.0 [facility] Comment on above: Performed By: #### P ROBF, BFPR, PHBF, BFCT, GLUBF, LDBF #### [place] [address] Platelet 201 10 3/mcL Normal 150-450 [facility] Comment on above: Performed By: #### P ROBF, BFPR, PHBF, BFCT, GLUBF, LDBF #### [place] [address] Platelet mean volume (Bld) [Entitic vol] 8.1 fL Normal 6.4-10.5 [facility] Comment on above: Performed By: #### P ROBF, BFPR, PHBF, BFCT, GLUBF, LDBF #### [place] [address] RBC 3.52 10 6/mcL Low 4.50-6.00 [facility] Comment on above: Performed By: #### P ROBF, BFPR, PHBF, BFCT, GLUBF, LDBF #### [place] [address] WBC 11.6 10 3/mcL High 4.5-10.8 [facility] Comment on above: Performed By: #### P ROBF, BFPR, PHBF, BFCT, GLUBF, LDBF #### [place] [id number] CMPon 04-13-2025 Albumin Level 2.9 G/dL Low 3.2-4.8 [facility] Comment on above: Performed By: #### P ROBF, BFPR, PHBF, BFCT, GLUBF, LDBF #### [place] [address] Albumin/Globulin [Mass ratio] 0.9 {ratio} Normal 0.9-1.6 [facility] Comment on above: Performed By: #### P ROBF, BFPR, PHBF, BFCT, GLUBF, LDBF #### [place] [address] ALP [Catalytic activity/Vol] 58 U/L Normal 38-126 [facility] Comment on above: Performed By: #### P ROBF, BFPR, PHBF, BFCT, GLUBF, LDBF #### [place] [address] ALT [Catalytic activity/Vol] 32 U/L Normal 12-55 [facility] Comment on above: Performed By: #### P ROBF, BFPR, PHBF, BFCT, GLUBF, LDBF #### [place] [id number] AST [Catalytic activity/Vol] 26 U/L Normal 8-34 [facility] Comment on above: Performed By: #### P ROBF, BFPR, PHBF, BFCT, GLUBF, LDBF #### [place] [address] Bili Total 0.50 mg/dL Normal 0.20-1.20 [facility] Comment on above: Result Comment: Use of this assay is not recommended for patients undergoing treatment with eltrombopag due to the potential for falsely elevated results. Performed By: #### P ROBF, BFPR, PHBF, BFCT, GLUBF, LDBF #### [place] [address] BUN/Creatinine Ratio 33.3 ratio High 10.0-22.0 [facility] Comment on above: Performed By: #### P ROBF, BFPR, PHBF, BFCT, GLUBF, LDBF #### [address] [address] Calcium [Mass/Vol] 8.8 mg/dL Normal 8.7-10.4 [facility] Comment on above: Performed By: #### P ROBF, BFPR, PHBF, BFCT, GLUBF, LDBF #### [place] [id number] Chloride [Moles/Vol] 100 mmol/L Normal 98-110 [facility] Comment on above: Performed By: #### P ROBF, BFPR, PHBF, BFCT, GLUBF, LDBF #### [place] [phone] CO2 [Moles/Vol] 39 mmol/L High 22-32 [facility] Comment on above: Performed By: #### P ROBF, BFPR, PHBF, BFCT, GLUBF, LDBF #### [place] [id number] Creatinine [Mass/Vol] 1.47 mg/dL High 0.60-1.40 [facility] Comment on above: Result Comment: Test ing performed on NXE analyzer using enzymatic creatinine methodology. Performed By: #### P ROBF, BFPR, PHBF, BFCT, GLUBF, LDBF #### [place] [id number] Electrolyte Balance 4.0 mEq/L Normal 4.0-15.0 [facility] Comment on above: Performed By: #### P ROBF, BFPR, PHBF, BFCT, GLUBF, LDBF #### [address] [address] Globulin 3.4 G/dL Normal 2.5-4.2 [facility] Comment on above: Performed By: #### P ROBF, BFPR, PHBF, BFCT, GLUBF, LDBF #### [address] [address] Glucose [Mass/Vol] 192 mg/dL High 82-115 [facility] Comment on above: Performed By: #### P ROBF, BFPR, PHBF, BFCT, GLUBF, LDBF #### [address] [address] Potassium [Moles/Vol] 4.5 mmol/L Normal 3.5-5.0 [facility] Comment on above: Performed By: #### P ROBF, BFPR, PHBF, BFCT, GLUBF, LDBF #### [address] [address] Sodium [Moles/Vol] 143 mmol/L Normal 136-145 [facility] Comment on above: Performed By: #### P ROBF, BFPR, PHBF, BFCT, GLUBF, LDBF #### [place] [id number] Total Protein 6.3 G/dL Normal 5.7-8.2 [facility] Comment on above: Performed By: #### P ROBF, BFPR, PHBF, BFCT, GLUBF, LDBF #### [place] [address] Urea nitrogen [Mass/Vol] 49.0 mg/dL High 8.0-22.0 [facility] Comment on above: Performed By: #### P ROBF, BFPR, PHBF, BFCT, GLUBF, LDBF #### [address] [address] LABORATORYOrdered By: SYSTEM SYSTEM on 04-13-2025 Troponin I.cardiac DL <= 0.01 ng/mL [Mass/Vol] 174 ng/L High 0 - 54 ng/L ADM SS Comment on above: Interpretive Data: High Sensitive Troponin I Reference Ranges: Female: 0-34 ng/L Male: 0-54 ng/L Testing performed on SEC Watch analyzer using direct chemiluminescent technology. Lactate [Moles/Vol] 1.2 mmol/L Normal 0.5 - 2. 2 mmol/L AH ADM SS Natriuretic peptide.B prohormone N-Terminal IA [...] Comment on above: Interpretive Data: Tyler mckeon [employer] (CHEST, 1992, 102:312S-25S) [...] ng/L Male: 0-54 ng/L Testing performed on Webtalk IM analyzer using direct chemiluminescent technology. LABORATORYOrdered [...] Lactic Acid Lvl 1.2 mmol/L Normal 0.5-2.2 [facility] Comment on above: Performed By: #### P ROBF, BFPR, PHBF, BFCT, GLUBF, LDBF #### [place] [address] MGon 04-13-2025 Magnesium [Mass/Vol] 2.2 mg/dL Normal 1.6-2.4 [facility] Comment on above: Performed By: #### P ROBF, BFPR, PHBF, BFCT, GLUBF, LDBF #### [place] [id number] MYCOon 04-13-2025 Mycoplasma IgG Positive Normal [facility] Comment on above: Result Comment: INTE RPRETATION OF MYCOPLASMA IgG BY EIA: Negative: No detectable M. pneumoniae IgG antibody. Positive: Mycoplasma pneumoniae IgG antibody Detected. Equivocal: Equivocal for IgG antibodies to Mycoplasma pneumoniae. Suggest repeat testing in 10-14 days. Performed By: #### P ROBF, BFPR, PHBF, BFCT, GLUBF, LDBF #### [place] [address] Mycoplasma IgM Negative Normal [facility] Comment on above: Result Comment: [...] ROBF, BFPR, PHBF, BFCT, GLUBF, LDBF #### [place] [address] No Panel Informationon 04-13 Microscopic examination of blood, culture Culture has been received in lab and is no growth to date. Routine cultures are held for 5 days. [facility] Work Phone: PBNPon 04-13-2025 Natriuretic peptide B (Bld) [Mass/Vol] 6315 pg/mL High 0-1800 [facility] Comment on above: Performed By: #### P ROBF, BFPR, PHBF, BFCT, GLUBF, LDBF #### [place] [id number] PROon 04-13-2025 INR Coag (PPP) [Relative time] 1.3 {INR} Normal [facility] Comment on above: Result Comment: [employer] (CHEST, 1991, 102:312S-25S) recommended therapeutic range for oral anticoagulant therapy is: LOW RISK: Prophylaxis of venous thrombosis INR: 2.0-3.0 Treatment of pulmonary embolism 2.0-3.0 Prevention of systemic embolism 2.0-3.0 HIGH RISK: Mechanical prosthetic valves 2.5-3.5 Performed By: #### P ROBF, BFPR, PHBF, BFCT, GLUBF, LDBF #### [place] [address] PT Coag (PPP) [Time] 14.5 s High 9.0-14.4 [facility] Comment on above: Result Comment: Effe ctive 03/03/08, Protime results may be affected by some antibiotics (i.e. Ciprofloxacin, Azithromycin, Bactrim) which may potentiate the action of oral anticoagulants, with further increases in Protime/INR. Performed By: #### P ROBF, BFPR, PHBF, BFCT, GLUBF, LDBF #### [address] 04-13-2025 High Sensitivity Troponin I 174 ng/L [address] MAIN Comment on above: Result Comment: High Sensitive Troponin I Reference Ranges: Female: 0-34 ng/L Male: 0-54 ng/L Testing performed on [employer] IM analyzer using direct chemiluminescent technology. Performed By: #### P ROBF, BFPR, PHBF, BFCT, GLUBF, LDBF #### [place] [address] High Sensitivity Troponin I 141 ng/L [address] MAIN Comment on above: Result Comment: High Sensitive Troponin I Reference Ranges: Female: 0-34 ng/L Male: 0-54 ng/L Testing performed on [employer] IM analyzer using direct chemiluminescent technology. Performed By: #### P ROBF, BFPR, PHBF, BFCT, GLUBF, LDBF #### [facility] [address] [place] [id number] XR CHEST 1 VIEWon 04-13-2025 XR CHEST [...] 2:58:50 PM Ordering Provider: COLLEEN DOE Normal [facility] MAIN 12 Lead EKGon 04-12-2025 12 Lead EKG Normal [facility] Absolute lymphocyte countOrd ered By: Daniel Brownlee on 04-12-2025 Lymphocytes Auto (Unsp spec) [#/Vol] 0.34 10*3/uL Low 0.83-4.51 [facility] Anion gap in Serum or Plasma Ordered By: Daniel Brownlee on 04-12-2025 Anion gap [Moles/Vol] 9 mmol/L 5-15 [facility] Automated lymphocyte count a s percentage of total leukocytesOrdered By: Daniel Brownlee on 04-12-2025 Lymphocytes/100 WBC Auto (Unsp spec) 2.5 % Low 19-41 [facility] BUN/creatinine ratioOrdered By: Daniel Brownlee on 04-12-2025 Urea nitrogen/Creatinine [Mass ratio] 41.9 mg/mg High 10-20 [facility] Basic Metabolic Profile (BMP )on 04-12-2025 BUN/CRE 41.9 RATIO High 10-20 [facility] Comment on above: Performed By: #### L 503.7505, L500.2500 ####[facility] [address] [place], [address] Calcium [Mass/Vol] 8.7 mg/dL Normal 7.6-11.0 [facility] Comment on above: Performed By: #### L 503.7505, L500.2500 ####[facility] [address] [place], [address] Chloride [Moles/Vol] 93 mmol/L Low 98-108 [facility] Comment on above: Performed By: #### L 503.7505, L500.2500 ####[facility] [address] [place], [address] CO2 [Moles/Vol] 36.5 mmol/L High 21.0-32.0 [facility] Comment on above: Performed By: #### L 503.7505, L500.2500 ####[facility] [address] [place], [address] Creatinine [Mass/Vol] 1.43 mg/dL High 0.70-1.20 [facility] Comment on above: Performed By: #### L 503.7505, L500.2500 ####[facility] [address] [place], [address] ECRCL 37.18 ml/min Low 50-250 [facility] Comment on above: Performed By: #### L 503.7505, L500.2500 ####[facility] [address] [place], [address] GAP 9 Normal 5-15 [facility] Comment on above: Performed By: #### L 503.7505, L500.2500 ####[facility] [address] [place], [address] GFR/1.73 sq M.predicted among non-blacks MDRD (S/P/Bld) [Vol rate/Area] 50 mL/min/{1.73_m2} Low >60 [facility] Comment on above: Result Comment: mL/m in/1.73m2 CKD-EPI Creatinine Equation (2020) Performed By: #### L 503.7505, L500.2500 ####[facility] [address] [place], [address] Glucose [Mass/Vol] 189 mg/dL High 70-99 [facility] Comment on above: Performed By: #### L 503.7505, L500.2500 ####[facility] [address] [place], [address] Potassium [Moles/Vol] 4.3 mmol/L Normal 3.3-5.1 [facility] Comment on above: Performed By: #### L 503.7505, L500.2500 ####[facility] [address] [place], [address] Sodium [Moles/Vol] 138 mmol/L Normal 133-145 [facility] Comment on above: Performed By: #### L 503.7505, L500.2500 ####[facility] [address] [place], [address] Urea nitrogen [Mass/Vol] 60 mg/dL High 4-19 [facility] Comment on above: Performed By: #### L 503.7505, L500.2500 ####[facility] [address] [place], [address] Basophil percentageOrdered B y: Daniel Brownlee on 04-12-2025 Basophils/100 WBC (Bld) 0.1 % 0-1 [facility] Bedside Glucoseon 04-12-2025 FINGERSTICK GLU 143 mg/dL High 74-106 [facility] Comment on above: Result Comment: KODY GEMENT OF PATIENT CARE PER NURSING PROTOCOL Performed By: #### L 501.080 ####[facility] [address] [place], [address] FINGERSTICK GLU 222 mg/dL High 74-106 [facility] Comment on above: Result Comment: KODY GEMENT OF PATIENT CARE PER NURSING PROTOCOL Performed By: #### L 501.080 ####[facility] [address] [place], [address] FINGERSTICK GLU 222 mg/dL High 74-106 [facility] Comment on above: Result Comment: KODY GEMENT OF PATIENT CARE PER NURSING PROTOCOL Performed By: #### L 501.080 ####[facility] [address] [place], [address] Body Fluid Culton 04-12-2025 BFC Culture exhibits no growth. Normal [facility] Comment on above: Performed By: #### M 100.2900, M100.4001, L350.1000, L200.0200, M100.2000 ####[facility] [address] [place], [address] CBC W/Diff, Automatedon 08- Absolute Lymph 0.34 X10 3/uL Low 0.83-4.51 [facility] Comment on above: Performed By: #### L 100.0100, L501.4021 ####[facility] [address] [place], [address] Absolute Neut 12.7 X10 3/uL High 2.0-7.7 [facility] Comment on above: Performed By: #### L 100.0100, L501.4021 ####[facility] [address] [place], [address] Basophils/100 WBC (Bld) 0.1 % Normal 0-1 [facility] Comment on above: Performed By: #### L 100.0100, L501.4021 ####[facility] [address] [place], [address] Eosinophils/100 WBC (Bld) 0.0 % Normal 0-5 [facility] Comment on above: Performed By: #### L 100.0100, L501.4021 ####[facility] [address] [place], [address] Erythrocyte distribution width (RBC) [Ratio] 16.6 % High 11.6-14.6 [facility] Comment on above: Performed By: #### L 100.0100, L501.4021 ####[facility] [address] [place], [address] Hematocrit (Bld) [Volume fraction] 29.6 % Low 40-54 [facility] Comment on above: Performed By: #### L 100.0100, L501.4021 ####[facility] [address] [place], [address] Hemoglobin (Bld) [Mass/Vol] 9.1 g/dL Low 13.0-16.5 [facility] Comment on above: Performed By: #### L 100.0100, L501.4021 ####[facility] [address] [place], [address] IG% 0.700 Normal 0.0-0.9 [facility] Comment on above: Result Comment: IG% - Immature Granulocytes (promyelocytes, myelocytes andmetamyelocytes) > 1% indicates that a LEFT SHIFT is Present. Performed By: #### L 100.0100, L501.4021 ####[facility] [address] [place], [address] Lymphocytes/100 WBC (Bld) 2.5 % Low 19-41 [facility] Comment on above: Performed By: #### L 100.0100, L501.4021 ####[facility] [address] [place], [address] MCH (RBC) [Entitic mass] 27.2 pg Normal 27.0-32.0 [facility] Comment on above: Performed By: #### L 100.0100, L501.4021 ####[facility] [address] [place], [address] MCHC (RBC) [Mass/Vol] 30.7 g/dL Low 32-36 [facility] Comment on above: Performed By: #### L 100.0100, L501.4021 ####[facility] [address] [place], [address] MCV (RBC) [Entitic vol] 88.4 fL Normal 80-94 [facility] Comment on above: Performed By: #### L 100.0100, L501.4021 ####[facility] [address] [place], [address] Monocytes/100 WBC (Bld) 4.2 % Normal 0-10 [facility] Comment on above: Performed By: #### L 100.0100, L501.4021 ####[facility] [address] [place], [address] Neutrophils/100 WBC (Bld) 92.5 % High 47-70 [facility] Comment on above: Performed By: #### L 100.0100, L501.4021 ####[facility] [address] [place], [address] Nucleated RBC (Bld) [#/Vol] 0 10*3/uL Normal 0-5 [facility] Comment on above: Performed By: #### L 100.0100, L501.4021 ####[facility] [address] [place], [address] Platelet mean volume (Bld) [Entitic vol] 9.9 fL Normal 6.2-12.0 [facility] Comment on above: Performed By: #### L 100.0100, L501.4021 ####[facility] [address] [place], [address] Platelets (Bld) [#/Vol] 193 10*3/uL Normal 150-450 [facility] Comment on above: Performed By: #### L 100.0100, L501.4021 ####[facility] [address] [place], [address] RBC (Bld) [#/Vol] 3.35 10*6/uL Low 4.6-6.2 [facility] Comment on above: Performed By: #### L 100.0100, L501.4021 ####[facility] [address] [place], [address] RDW SD 53.6 fl High 35.1-43.9 [facility] Comment on above: Performed By: #### L 100.0100, L501.4021 ####[facility] [address] [place], [address] WBC (Bld) [#/Vol] 13.7 10*3/uL High 4.4-11.0 [facility] Comment on above: Performed By: #### L 100.0100, L501.4021 ####[facility] [address] [place], [address] Carbon dioxide, total [Moles /volume] in Central venous bloodOrdered By: Daniel Brownlee on 04-12-2025 CO2 [Moles/Vol] 36.5 mmol/L High 21.0-32.0 [facility] Chest PA and Lateralon 04-12 Chest PA and Lateral Normal [facility] Chest without Contraston 08- 24-2025 Chest without Contrast Normal [facility] Chloride assayOrdered By: Kimo Brownlee on 04-12-2025 Chloride [Moles/Vol] 93 mmol/L Low 98-108 [facility] Culture, Anaerobic Any Sourc talat 04-12-2025 CUAN No anaerobic bacteri a isolated. Normal [facility] Comment on above: Performed By: #### M 100.2900, M100.4001, L350.1000, L200.0200, M100.2000 ####[facility] [address] [place], [address] Emergency Department Summary on 04-12-2025 Emergency Department Summary Normal [facility] Eosinophil percentageOrdered By: Daniel Brownlee on 04-12-2025 Eosinophils/100 WBC (Bld) 0.0 % 0-5 [facility] Erythrocyte distribution wid th ratioOrdered By: Daniel Brownlee on 04-12-2025 Erythrocyte distribution width (RBC) [Ratio] 16.6 % High 11.6-14.6 [facility] Erythrocyte distribution wid th standard deviationOrdered By: Daniel Brownlee on 04-12-2025 Erythrocyte distribution width (RBC) [Ratio] 53.6 fl High 35.1-43.9 [facility] Glomerular filtration rate ( GFR) estimation/1.73 sq m using serum, plasma, or whole bOrdered By: Daniel Brownlee on 04-12-2025 GFR/1.73 sq M.predicted among non-blacks MDRD (S/P/Bld) [Vol rate/Area] 50 mL/min/{1.73_m2} Low >60 [facility] Glucose measurement at bedsi deOrdered By: Valdez Olivo on 04-12-2025 Glucose [Mass/Vol] 143 mg/dL High 74-106 [facility] Hematocrit Auto (Bld) [Volum e fraction]Ordered By: Daniel Brownlee on 04-12-2025 Hematocrit (Bld) [Volume fraction] 29.6 % Low 40-54 [facility] Hemoglobin measurementOrdere d By: Daniel Brownlee on 04-12-2025 Hemoglobin (Bld) [Mass/Vol] 9.1 g/dL Low 13.0-16.5 [facility] Immature granulocytes/100 WB C Auto (Bld)Ordered By: Daniel Brownlee on 04-12-2025 Immature granulocytes/100 WBC (Bld) 0.700 % 0.0-0.9 [facility] L501.4021on 04-12-2025 Trop T High Sen 103 ng/L Invalid Interpretation Code <=22 [facility] Comment on above: Result Comment: Crit ical Result(s) Called ACOLE2 at: 2036 by:RIVERA??Results read back by same. Performed By: #### L 100.0100, L501.4021 ####[facility] [address] [place], [place], [id number] MCV (mean corpuscular volume ) determinationOrdered By: Daniel Brownlee on 04-12-2025 MCV (RBC) [Entitic vol] 88.4 fL 80-94 [facility] Mean corpuscular hemoglobin (MCH) determinationOrdered By: Daniel Brownlee on 04-12-2025 MCH (RBC) [Entitic mass] 27.2 pg 27.0-32.0 [facility] Monocyte percentageOrdered B y: Daniel Brownlee on 04-12-2025 Monocytes/100 WBC (Bld) 4.2 % 0-10 [facility] Natriuretic peptide.B prohor girish N-Terminal [Mass/volume] in Serum or PlasmaOrdered By: Daniel Brownlee on 04-12-2025 Natriuretic peptide.B prohormone N-Terminal [Mass/Vol] 7022 pg/mL High <1800 [facility] Neutrophil percentageOrdered By: Daniel Brownlee on 04-12-2025 Neutrophils/100 WBC (Bld) 92.5 % High 47-70 [facility] Platelet countOrdered By: Kimo Brownlee on 04-12-2025 Platelets (Bld) [#/Vol] 193 10*3/uL 150-450 [facility] Potassium measurement (mass/ volume)Ordered By: Daniel Brownlee on 04-12-2025 Potassium (Unsp spec) [Mass/Vol] 4.3 mmol/L 3.3-5.1 [facility] Pro- Brain NATRIURETIC PEPTI Adrienne 04-12-2025 Natriuretic peptide B (Bld) [Mass/Vol] 7022 pg/mL High <=1800 [facility] Comment on above: Result Comment: Hear t Failure Unlikely: < 300 pg/mLHeart Failure Likely< 50 Years: > 450 pg/mL50-75 Years: > 900 pg/mL>75 Years: > 1800 pg/mL Performed By: #### L 503.7505, L500.2500 ####[facility] [address] [place], [place], [id number] RBC Auto (Bld) [#/Vol]Ordere d By: Daniel Brownlee on 04-12-2025 RBC (Bld) [#/Vol] 3.35 10*6/uL Low 4.6-6.2 [facility] Serum creatinine measurement (mass/volume)Ordered By: Daniel Brownlee on 04-12-2025 Creatinine [Mass/Vol] 1.43 mg/dL High 0.70-1.20 [facility] Serum glucose measurement (m ass/volume)Ordered By: Daniel Brownlee on 04-12-2025 Glucose [Mass/Vol] 189 mg/dL High 70-99 [facility] Serum or plasma calcium kingsley urement (mass/volume)Ordered By: Daniel Brownlee on 04-12-2025 Calcium [Mass/Vol] 8.7 mg/dL 7.6-11.0 [facility] Serum or plasma urea nitroge n measurement (mass/volume)Ordered By: Daniel Brownlee on 04-12-2025 Urea nitrogen [Mass/Vol] 60 mg/dL High 4-19 [facility] Sodium levelOrdered By: Mickie Brownlee on 04-12-2025 Sodium [Moles/Vol] 138 mmol/L 133-145 [facility] Troponin T HS 2 HRon 025 Trop T High Sen 98 ng/L Invalid Interpretation Code <=22 [facility] Comment on above: Result Comment: Crit ical Result(s) Called ALAMMERS at: 2234 by:RIVERA??Results read back by same. Performed By: #### L 499.0042 ####[facility] [address] [place], [place], [address] Troponin T HS 4 HRon 025 Trop T High Sen Normal <=22 [facility] Comment on above: Result Comment: RAMÓN ENT DISCHARGED Performed By: #### L 499.0043 ####[facility] [address] [place], [place], [address] Troponin T.cardiac [Mass/vol ume] in Serum or Plasma by High sensitivity methodOrdered By: Daniel Brownlee on 04-12-2025 Troponin T.cardiac High sensitivity method [Mass/Vol] 98 ng/L High <22 [facility] Troponin T.cardiac High sensitivity method [Mass/Vol] 103 ng/L High <22 [facility] White blood cell (WBC) count Ordered By: Daniel Brownlee on 04-12-2025 WBC (Bld) [#/Vol] 13.7 10*3/uL High 4.4-11.0 [facility] Absolute lymphocyte countOrd ered By: Valdez Olivo on 04-11-2025 Lymphocytes Auto (Unsp spec) [#/Vol] 0.34 10*3/uL Low 0.83-4.51 [facility] Anion gap in Serum or Plasma Ordered By: Valdez Olivo on 04-11-2025 Anion gap [Moles/Vol] 10 mmol/L 5-15 [facility] Automated lymphocyte count a s percentage of total leukocytesOrdered By: Valdez Olivo on 04-11-2025 Lymphocytes/100 WBC Auto (Unsp spec) 3.3 % Low 19-41 [facility] BUN/creatinine ratioOrdered By: Valdez Olivo on 04-11-2025 Urea nitrogen/Creatinine [Mass ratio] 42.1 mg/mg High 10-20 [facility] Basic Metabolic Profile (BMP )on 04-11-2025 BUN/CRE 42.1 RATIO High 10- [facility] Comment on above: Performed By: #### L 500.2500, L100.0100 ####[facility] [address] [place], [place], [id number] Calcium [Mass/Vol] 8.6 mg/dL Normal 7.6-11.0 [facility] Comment on above: Performed By: #### L 500.2500, L100.0100 ####[facility] [address] [place], [address] Chloride [Moles/Vol] 94 mmol/L Low 98-108 [facility] Comment on above: Performed By: #### L 500.2500, L100.0100 ####[facility] [address] [place], [address] CO2 [Moles/Vol] 33.4 mmol/L High 21.0-32.0 [facility] Comment on above: Performed By: #### L 500.2500, L100.0100 ####[facility] [address] [place], [address] Creatinine [Mass/Vol] 1.62 mg/dL High 0.70-1.20 [facility] Comment on above: Performed By: #### L 500.2500, L100.0100 ####[facility] [address] [place], [address] ECRCL 32.82 ml/min Low 50-250 [facility] Comment on above: Performed By: #### L 500.2500, L100.0100 ####[facility] [address] [place], [address] GAP 10 Normal 5-15 [facility] Comment on above: Performed By: #### L 500.2500, L100.0100 ####[facility] [address] [place], [address] GFR/1.73 sq M.predicted among non-blacks MDRD (S/P/Bld) [Vol rate/Area] 43 mL/min/{1.73_m2} Low >60 [facility] Comment on above: Result Comment: mL/m in/1.73m2 CKD-EPI Creatinine Equation (2020) Performed By: #### L 500.2500, L100.0100 ####[facility] [address] [place], [address] Glucose [Mass/Vol] 176 mg/dL High 70-99 [facility] Comment on above: Performed By: #### L 500.2500, L100.0100 ####[facility] [address] [place], [address] Potassium [Moles/Vol] 4.1 mmol/L Normal 3.3-5.1 [facility] Comment on above: Performed By: #### L 500.2500, L100.0100 ####[facility] [address] [place], [address] Sodium [Moles/Vol] 138 mmol/L Normal 133-145 [facility] Comment on above: Performed By: #### L 500.2500, L100.0100 ####[facility] [address] [place], [address] Urea nitrogen [Mass/Vol] 68 mg/dL High 4-19 [facility] Comment on above: Performed By: #### L 500.2500, L100.0100 ####[facility] [address] [place], [address] BUN Normal 4-19 [facility] Comment on above: Result Comment: Canc elled via OM: Order cancelled - Patient discharged Performed By: #### L 100.0100, L500.2500 ####[facility] [address] [place], [address] BUN/CRE Normal 10-20 [facility] Comment on above: Result Comment: Canc elled via OM: Order cancelled - Patient discharged Performed By: #### L 100.0100, L500.2500 ####[facility] [address] [place], [address] Calcium Normal 7.6-11.0 [facility] Comment on above: Result Comment: Canc elled via OM: Order cancelled - Patient discharged Performed By: #### L 100.0100, L500.2500 ####[facility] [address] [place], [address] CL Normal 98-108 [facility] Comment on above: Result Comment: Canc elled via OM: Order cancelled - Patient discharged Performed By: #### L 100.0100, L500.2500 ####[facility] [address] [place], [address] CO2 Normal 21.0-32.0 [facility] Comment on above: Result Comment: Canc elled via OM: Order cancelled - Patient discharged Performed By: #### L 100.0100, L500.2500 ####[facility] [address] [place], [address] CREAT,SERUM Normal 0.70-1.20 [facility] Comment on above: Result Comment: Canc elled via OM: Order cancelled - Patient discharged Performed By: #### L 100.0100, L500.2500 ####[facility] [address] [place], [address] eGFR Normal >60 [facility] Comment on above: Result Comment: Canc elled via OM: Order cancelled - Patient discharged Performed By: #### L 100.0100, L500.2500 ####[facility] [address] [place], [address] GAP Normal 5-15 [facility] Comment on above: Result Comment: Canc elled via OM: Order cancelled - Patient discharged Performed By: #### L 100.0100, L500.2500 ####[facility] [address] [place], [address] GLU Normal 70-99 [facility] Comment on above: Result Comment: Canc elled via OM: Order cancelled - Patient discharged Performed By: #### L 100.0100, L500.2500 ####[facility] [address] [place], [address] Potassium Normal 3.3-5.1 [facility] Comment on above: Result Comment: Canc elled via OM: Order cancelled - Patient discharged Performed By: #### L 100.0100, L500.2500 ####[facility] [address] [place], [address] Basic Metabolic Profile (BMP) Normal 133-145 [facility] Comment on above: Result Comment: Canc elled via OM: Order cancelled - Patient discharged Performed By: #### L 100.0100, L500.2500 ####[facility] [address] [place], [address] Basophil percentageOrdered B y: Valdez Geovani on 04-11-2025 Basophils/100 WBC (Bld) 0.1 % 0-1 [facility] Bedside Glucoseon 04-11-2025 FINGERSTICK GLU 323 mg/dL High 74-106 [facility] Comment on above: Result Comment: KODY GEMENT OF PATIENT CARE PER NURSING PROTOCOL Performed By: #### L 501.080 ####[facility] [address] [place], [address] FINGERSTICK GLU 166 mg/dL High 74-106 [facility] Comment on above: Result Comment: KODY GEMENT OF PATIENT CARE PER NURSING PROTOCOL Performed By: #### L 501.080 ####[facility] [address] [place], [address] FINGERSTICK GLU 273 mg/dL High 74-106 [facility] Comment on above: Result Comment: KODY GEMENT OF PATIENT CARE PER NURSING PROTOCOL Performed By: #### L 501.080 ####[facility] [address] [place], [address] CBC W/Diff, Automatedon 08-2 Absolute Lymph 0.34 X10 3/uL Low 0.83-4.51 [facility] Comment on above: Performed By: #### L 500.2500, L100.0100 ####[facility] [address] [place], [address] Absolute Neut 9.0 X10 3/uL High 2.0-7.7 [facility] Comment on above: Performed By: #### L 500.2500, L100.0100 ####[facility] [address] [place], [address] Basophils/100 WBC (Bld) 0.1 % Normal 0-1 [facility] Comment on above: Performed By: #### L 500.2500, L100.0100 ####[facility] [address] [place], [address] Eosinophils/100 WBC (Bld) 0.0 % Normal 0-5 [facility] Comment on above: Performed By: #### L 500.2500, L100.0100 ####[facility] [address] [place], [address] Erythrocyte distribution width (RBC) [Ratio] 16.6 % High 11.6-14.6 [facility] Comment on above: Performed By: #### L 500.2500, L100.0100 ####[facility] [address] [place], [address] Hematocrit (Bld) [Volume fraction] 28.4 % Low 40-54 [facility] Comment on above: Performed By: #### L 500.2500, L100.0100 ####[facility] [address] [place], [address] Hemoglobin (Bld) [Mass/Vol] 8.7 g/dL Low 13.0-16.5 [facility] Comment on above: Performed By: #### L 500.2500, L100.0100 ####[facility] [address] [place], [address] IG% 0.600 Normal 0.0-0.9 [facility] Comment on above: Result Comment: IG% - Immature Granulocytes (promyelocytes, myelocytes andmetamyelocytes) > 1% indicates that a LEFT SHIFT is Present. Performed By: #### L 500.2500, L100.0100 ####[facility] [address] [place], [address] Lymphocytes/100 WBC (Bld) 3.3 % Low 19-41 [facility] Comment on above: Performed By: #### L 500.2500, L100.0100 ####[facility] [address] [place], [address] MCH (RBC) [Entitic mass] 26.7 pg Low 27.0-32.0 [facility] Comment on above: Performed By: #### L 500.2500, L100.0100 ####[facility] [address] [place], [address] MCHC (RBC) [Mass/Vol] 30.6 g/dL Low 32-36 [facility] Comment on above: Performed By: #### L 500.2500, L100.0100 ####[facility] [address] [place], [address] MCV (RBC) [Entitic vol] 87.1 fL Normal 80-94 [facility] Comment on above: Performed By: #### L 500.2500, L100.0100 ####[facility] [address] [place], [address] Monocytes/100 WBC (Bld) 8.7 % Normal 0-10 [facility] Comment on above: Performed By: #### L 500.2500, L100.0100 ####[facility] [address] [place], [address] Neutrophils/100 WBC (Bld) 87.3 % High 47-70 [facility] Comment on above: Performed By: #### L 500.2500, L100.0100 ####[facility] [address] [place], [address] Nucleated RBC (Bld) [#/Vol] 0 10*3/uL Normal 0-5 [facility] Comment on above: Performed By: #### L 500.2500, L100.0100 ####[facility] [address] [place], [address] Platelet mean volume (Bld) [Entitic vol] 10.2 fL Normal 6.2-12.0 [facility] Comment on above: Performed By: #### L 500.2500, L100.0100 ####[facility] [address] [place], [address] Platelets (Bld) [#/Vol] 186 10*3/uL Normal 150-450 [facility] Comment on above: Performed By: #### L 500.2500, L100.0100 ####[facility] [address] [place], [address] RBC (Bld) [#/Vol] 3.26 10*6/uL Low 4.6-6.2 [facility] Comment on above: Performed By: #### L 500.2500, L100.0100 ####[facility] [address] [place], [address] RDW SD 52.9 fl High 35.1-43.9 [facility] Comment on above: Performed By: #### L 500.2500, L100.0100 ####[facility] [address] [place], [address] WBC (Bld) [#/Vol] 10.3 10*3/uL Normal 4.4-11.0 [facility] Comment on above: Performed By: #### L 500.2500, L100.0100 ####[facility] [address] [place], [address] Absolute Neut Normal 2.0-7.7 [facility] Comment on above: Result Comment: Canc elled via OM: Order cancelled - Patient discharged Performed By: #### L 100.0100, L500.2500 ####[facility] [address] [place], [address] HCT Normal 40-54 [facility] Comment on above: Result Comment: Canc elled via OM: Order cancelled - Patient discharged Performed By: #### L 100.0100, L500.2500 ####[facility] [address] [place], [address] HGB Normal 13.0-16.5 [facility] Comment on above: Result Comment: Canc elled via OM: Order cancelled - Patient discharged Performed By: #### L 100.0100, L500.2500 ####[facility] [address] [place], [address] MCH Normal 27.0-32.0 [facility] Comment on above: Result Comment: Canc elled via OM: Order cancelled - Patient discharged Performed By: #### L 100.0100, L500.2500 ####[facility] [address] [place], [address] MCHC Normal 32-36 [facility] Comment on above: Result Comment: Canc elled via OM: Order cancelled - Patient discharged Performed By: #### L 100.0100, L500.2500 ####[facility] [address] [place], [address] MCV Normal 80-94 [facility] Comment on above: Result Comment: Canc elled via OM: Order cancelled - Patient discharged Performed By: #### L 100.0100, L500.2500 ####[facility] [address] [place], [address] NEUT% Normal 47-70 [facility] Comment on above: Result Comment: Canc elled via OM: Order cancelled - Patient discharged Performed By: #### L 100.0100, L500.2500 ####[facility] [address] [place], [address] PLT Normal 150-450 [facility] Comment on above: Result Comment: Canc elled via OM: Order cancelled - Patient discharged Performed By: #### L 100.0100, L500.2500 ####[facility] [address] [place], [address] RBC Normal 4.6-6.2 [facility] Comment on above: Result Comment: Canc elled via OM: Order cancelled - Patient discharged Performed By: #### L 100.0100, L500.2500 ####[facility] [address] [place], [address] RDW CV Normal 11.6-14.6 [facility] Comment on above: Result Comment: Canc elled via OM: Order cancelled - Patient discharged Performed By: #### L 100.0100, L500.2500 ####[facility] [address] [place], [address] RDW SD Normal 35.1-43.9 [facility] Comment on above: Result Comment: Canc elled via OM: Order cancelled - Patient discharged Performed By: #### L 100.0100, L500.2500 ####[facility] [address] [place], [address] WBC Normal 4.4-11.0 [facility] Comment on above: Result Comment: Canc elled via OM: Order cancelled - Patient discharged Performed By: #### L 100.0100, L500.2500 ####[facility] [address] [place], [address] COVID 19 AG RAPID (KHURRAM Becerril)on 04-11-2025 SARS-CoV-2 (COVID-19) RNA BRYAN+probe Ql (Unsp spec) Normal [facility] Comment on above: Performed By: #### M 100.505 ####[facility] [address] [place], [place], [id number] COVID-19 virus antigen assay Ordered By: Valdez Geovani on 04-11-2025 SARS-CoV-2 (COVID-19) Ag IA.rapid Ql (Resp) [facility] Carbon dioxide, total [Moles /volume] in Central venous bloodOrdered By: Valdez Geovani on 04-11-2025 CO2 [Moles/Vol] 33.4 mmol/L High 21.0-32.0 [facility] Chloride assayOrdered By: Aiden Olivo on 04-11-2025 Chloride [Moles/Vol] 94 mmol/L Low 98-108 [facility] Eosinophil percentageOrdered By: Valdez Olivo on 04-11-2025 Eosinophils/100 WBC (Bld) 0.0 % 0-5 [facility] Erythrocyte distribution wid th ratioOrdered By: Valdez Olivo on 04-11-2025 Erythrocyte distribution width (RBC) [Ratio] 16.6 % High 11.6-14.6 [facility] Erythrocyte distribution wid th standard deviationOrdered By: Valdez Olivo on 04-11-2025 Erythrocyte distribution width (RBC) [Ratio] 52.9 fl High 35.1-43.9 [facility] Glomerular filtration rate ( GFR) estimation/1.73 sq m using serum, plasma, or whole bOrdered By: Valdez Olivo on 04-11-2025 GFR/1.73 sq M.predicted among non-blacks MDRD (S/P/Bld) [Vol rate/Area] 43 mL/min/{1.73_m2} Low >60 [facility] Gram Stainon 04-11-2025 GS Centrifuged Specimen ? Culture performed on centrifuged specimen Gram Stain 1+ White Blood Cells No organisms seen Normal [facility] Comment on above: Performed By: #### M 100.2900, M100.4001, L350.1000, L200.0200, M100.2000 ####[facility] [address] [place], [address] Hematocrit Auto (Bld) [Volum e fraction]Ordered By: Valdez Geovani on 04-11-2025 Hematocrit (Bld) [Volume fraction] 28.4 % Low 40-54 [facility] Hemoglobin measurementOrdere d By: Valdez Olivo on 04-11-2025 Hemoglobin (Bld) [Mass/Vol] 8.7 g/dL Low 13.0-16.5 [facility] Immature granulocytes/100 WB C Auto (Bld)Ordered By: Valdez Olivo on 04-11-2025 Immature granulocytes/100 WBC (Bld) 0.600 % 0.0-0.9 [facility] MCV (mean corpuscular volume ) determinationOrdered By: Valdez Olivo on 04-11-2025 MCV (RBC) [Entitic vol] 87.1 fL 80-94 [facility] Mean corpuscular hemoglobin (MCH) determinationOrdered By: Valdez Olivo 04-11-2025 MCH (RBC) [Entitic mass] 26.7 pg Low 27.0-32.0 [facility] Monocyte percentageOrdered B y: Valdez Geovani on 04-11-2025 Monocytes/100 WBC (Bld) 8.7 % 0-10 [facility] Neutrophil percentageOrdered By: Valdez Lariosok on 04-11-2025 Neutrophils/100 WBC (Bld) 87.3 % High 47-70 [facility] Platelet countOrdered By: Aiden Olivo on 04-11-2025 Platelets (Bld) [#/Vol] 186 10*3/uL 150-450 [facility] Potassium measurement (mass/ volume)Ordered By: Valdez Olivo on 04-11-2025 Potassium (Unsp spec) [Mass/Vol] 4.1 mmol/L 3.3-5.1 [facility] RBC Auto (Bld) [#/Vol]Ordere d By: Valdez Olivo on 04-11-2025 RBC (Bld) [#/Vol] 3.26 10*6/uL Low 4.6-6.2 [facility] Serum creatinine measurement (mass/volume)Ordered By: Valdez Olivo on 04-11-2025 Creatinine [Mass/Vol] 1.62 mg/dL High 0.70-1.20 [facility] Serum glucose measurement (m ass/volume)Ordered By: Valdez Olivo on 04-11-2025 Glucose [Mass/Vol] 176 mg/dL High 70-99 [facility] Serum or plasma calcium kingsley urement (mass/volume)Ordered By: Valdez Olivo on 04-11-2025 Calcium [Mass/Vol] 8.6 mg/dL 7.6-11.0 [facility] Serum or plasma urea nitroge n measurement (mass/volume)Ordered By: Valdez Olivo on 04-11-2025 Urea nitrogen [Mass/Vol] 68 mg/dL High 4-19 [facility] Sodium levelOrdered By: Valdez Olivo on 04-11-2025 Sodium [Moles/Vol] 138 mmol/L 133-145 [facility] White blood cell (WBC) count Ordered By: Valdez Olivo on 04-11-2025 WBC (Bld) [#/Vol] 10.3 10*3/uL 4.4-11.0 [facility] Absolute lymphocyte countOrd ered By: Nicola Roman on 04-10-2025 Lymphocytes Auto (Unsp spec) [#/Vol] 0.17 10*3/uL Low 0.83-4.51 [facility] Activated partial thrombopla stin time (aPTT) in platelet poor plasma by coagulation aOrdered By: Nicola Marroquin on 04-10-2025 aPTT Coag (PPP) [Time] 29.5 s 24.1-36.2 [facility] Anaerobic cultureOrdered By: Nicola Roman on 04-10-2025 Bacteria identified Anaer cx Nom (Unsp spec) No anaerobic bacteria isolated. [facility] Anion gap in Serum or Plasma Ordered By: Nicola Roman on 04-10-2025 Anion gap [Moles/Vol] 12 mmol/L 5-15 [facility] Automated lymphocyte count a s percentage of total leukocytesOrdered By: Nicola Roman on 04-10-2025 Lymphocytes/100 WBC Auto (Unsp spec) 1.9 % Low 19-41 [facility] BUN/creatinine ratioOrdered By: Nicola Roman on 04-10-2025 Urea nitrogen/Creatinine [Mass ratio] 44.4 mg/mg High 10-20 [facility] Basic Metabolic Profile (BMP )on 04-10-2025 BUN/CRE 44.4 RATIO High 10-20 [facility] Comment on above: Performed By: #### L 100.0100, L500.2500 ####[facility] [address] [place], [address] Calcium [Mass/Vol] 8.4 mg/dL Normal 7.6-11.0 [facility] Comment on above: Performed By: #### L 100.0100, L500.2500 ####[facility] [address] [place], [address] Chloride [Moles/Vol] 92 mmol/L Low 98-108 [facility] Comment on above: Performed By: #### L 100.0100, L500.2500 ####[facility] [address] [place], [address] CO2 [Moles/Vol] 32.1 mmol/L High 21.0-32.0 [facility] Comment on above: Performed By: #### L 100.0100, L500.2500 ####[facility] [address] [place], [address] Creatinine [Mass/Vol] 1.71 mg/dL High 0.70-1.20 [facility] Comment on above: Performed By: #### L 100.0100, L500.2500 ####[facility] [address] [place], [address] ECRCL 31.09 ml/min Low 50-250 [facility] Comment on above: Performed By: #### L 100.0100, L500.2500 ####[facility] [address] [place], [address] GAP 12 Normal 5-15 [facility] Comment on above: Performed By: #### L 100.0100, L500.2500 ####[facility] [address] [place], [address] GFR/1.73 sq M.predicted among non-blacks MDRD (S/P/Bld) [Vol rate/Area] 40 mL/min/{1.73_m2} Low >60 [facility] Comment on above: Result Comment: mL/m in/1.73m2 CKD-EPI Creatinine Equation (2020) Performed By: #### L 100.0100, L500.2500 ####[facility] [address] [place], [address] Glucose [Mass/Vol] 244 mg/dL High 70-99 [facility] Comment on above: Performed By: #### L 100.0100, L500.2500 ####[facility] [address] [place], [address] Potassium [Moles/Vol] 4.1 mmol/L Normal 3.3-5.1 [facility] Comment on above: Performed By: #### L 100.0100, L500.2500 ####[facility] [address] [place], [address] Sodium [Moles/Vol] 137 mmol/L Normal 133-145 [facility] Comment on above: Performed By: #### L 100.0100, L500.2500 ####[facility] [address] [place], [address] Urea nitrogen [Mass/Vol] 76 mg/dL High 4-19 [facility] Comment on above: Performed By: #### L 100.0100, L500.2500 ####[facility] [address] [place], [address] Basophil percentageOrdered B y: Nicola Roman on 04-10-2025 Basophils/100 WBC (Bld) 0.1 % 0-1 [facility] Bedside Glucoseon 04-10-2025 FINGERSTICK GLU 341 mg/dL High 74-106 [facility] Comment on above: Result Comment: KODY GEMENT OF PATIENT CARE PER NURSING PROTOCOL Performed By: #### L 501.080 ####[facility] [address] [place], [address] FINGERSTICK GLU 327 mg/dL High 74-106 [facility] Comment on above: Result Comment: KODY GEMENT OF PATIENT CARE PER NURSING PROTOCOL Performed By: #### L 501.080 ####[facility] [address] [facility] [address] FINGERSTICK GLU 346 mg/dL High 74-106 [facility] Comment on above: Result Comment: KODY GEMENT OF PATIENT CARE PER NURSING PROTOCOL Performed By: #### L 501.080 ####[facility] [address] [facility] [address] FINGERSTICK GLU 236 mg/dL High [address] [place] [address] Comment on above: Result Comment: KODY GEMENT OF PATIENT CARE PER NURSING PROTOCOL Performed By: #### L 501.080 ####[facility] [address] [place], [address] Body Fluid Cell Count+Diffon 04-10-2025 PATH COMM/BF Reviewed Normal [facility] Comment on above: Order Comment: The r eference range and other method performancespecifications have not been established for this bodyfluid. The test must be integrated into the clinicalcontext for interpretation. Result Comment: RELIEF DOCKING MASTER MYRANDA INFLAMMATORY CELLS. OCCASIONAL MESOTHELIAL CELLSNOTED. NO MALIGNANT CELLS IDENTIFIED.Ludmila GOMEZ MD 04/10/25 @1730 AMENDED REPORT 04/10/25 173 PATH COMM/BF previously reported as: May follow Performed By: #### M 100.2900, M100.4001, L350.1000, L200.0200, M100.2000 ####[facility] [address] [place], [address] Body fluid appearance (nomin al result)Ordered By: Nicola Roman on 04-10-2025 Appearance (Body fld) CLEAR [facility] Body fluid color determinati onOrdered By: Nicola Roman on 04-10-2025 Color (Body fld) YELLOW [facility] Body fluid cultureOrdered By : Nicola Roman on 04-10-2025 Microbial culture, body fluid Culture exhibits no growth. [facility] Body fluid lactate dehydroge nase measurement (enzymatic activity/volume) by pyruvateOrdered By: Nicola Roman on 04-10-2025 LDH Pyruvate to lactate reaction (Body fld) [Catalytic activity/Vol] 61 Units/L Not Establ. [facility] Body fluid leukocytes count (number/volume)Ordered By: Nicola Roman on 04-10-2025 WBC (Body fld) [#/Vol] 0.128 10*3/uL [facility] Body fluid lymphocytes/100 l eukocytesOrdered By: Nicola Roman on 04-10-2025 Lymphocytes/100 WBC (Body fld) 44 % [facility] Body fluid macrophage countO rdered By: Nicola Roman on 04-10-2025 Macrophages (Body fld) [#/Vol] 41 % [facility] Body fluid mononuclear cell percentageOrdered By: Nicola Roman on 04-10-2025 Mononuclear cells/100 WBC (Body fld) 94.6 % [facility] Body fluid protein measureme nt (mass/volume)Ordered By: Nicola Roman on 04-10-2025 Protein (Body fld) [Mass/Vol] 2.1 g/dL Not Establ. [facility] Body fluid segmented neutrop hils count (number/volume)Ordered By: Nicola Roman on 04-10-2025 Segmented neutrophils (Body fld) [#/Vol] 6 % [facility] Body fluid total cell countO rdered By: Nicola Roman on 04-10-2025 Cells Counted Total (Body fld) [#] 0.154 10^3/ul [facility] CBC W/Diff, Automatedon 03-21 Absolute Lymph 0.17 X10 3/uL Low 0.83-4.51 [facility] Comment on above: Performed By: #### L 100.0100, L500.2500 ####[facility] [address] [place], [address] Absolute Neut 8.2 X10 3/uL High 2.0-7.7 [facility] Comment on above: Performed By: #### L 100.0100, L500.2500 ####[facility] [address] [place], [address] Basophils/100 WBC (Bld) 0.1 % Normal 0-1 [facility] Comment on above: Performed By: #### L 100.0100, L500.2500 ####[facility] [address] [place], [address] Eosinophils/100 WBC (Bld) 0.0 % Normal 0-5 [facility] Comment on above: Performed By: #### L 100.0100, L500.2500 ####[facility] [address] [place], [address] Erythrocyte distribution width (RBC) [Ratio] 17.1 % High 11.6-14.6 [facility] Comment on above: Performed By: #### L 100.0100, L500.2500 ####[facility] [address] [place], [address] Hematocrit (Bld) [Volume fraction] 28.2 % Low 40-54 [facility] Comment on above: Performed By: #### L 100.0100, L500.2500 ####[facility] [address] [place], [address] Hemoglobin (Bld) [Mass/Vol] 8.7 g/dL Low 13.0-16.5 [facility] Comment on above: Performed By: #### L 100.0100, L500.2500 ####[facility] [address] [place], [address] IG% 0.900 Normal 0.0-0.9 [facility] Comment on above: Result Comment: IG% - Immature Granulocytes (promyelocytes, myelocytes andmetamyelocytes) > 1% indicates that a LEFT SHIFT is Present. Performed By: #### L 100.0100, L500.2500 ####[facility] [address] [place], [address] Lymphocytes/100 WBC (Bld) 1.9 % Low 19-41 [facility] Comment on above: Performed By: #### L 100.0100, L500.2500 ####[facility] [address] [place], [address] MCH (RBC) [Entitic mass] 26.9 pg Low 27.0-32.0 [facility] Comment on above: Performed By: #### L 100.0100, L500.2500 ####[facility] [address] [place], [address] MCHC (RBC) [Mass/Vol] 30.9 g/dL Low 32-36 [facility] Comment on above: Performed By: #### L 100.0100, L500.2500 ####[facility] [address] [place], [address] MCV (RBC) [Entitic vol] 87.0 fL Normal 80-94 [facility] Comment on above: Performed By: #### L 100.0100, L500.2500 ####[facility] [address] [place], [address] Monocytes/100 WBC (Bld) 5.5 % Normal 0-10 [facility] Comment on above: Performed By: #### L 100.0100, L500.2500 ####[facility] [address] [place], [address] Neutrophils/100 WBC (Bld) 91.6 % High 47-70 [facility] Comment on above: Performed By: #### L 100.0100, L500.2500 ####[facility] [address] [place], [address] Nucleated RBC (Bld) [#/Vol] 0.2 10*3/uL Normal 0-5 [facility] Comment on above: Performed By: #### L 100.0100, L500.2500 ####[facility] [address] [place], [address] Platelet mean volume (Bld) [Entitic vol] 10.0 fL Normal 6.2-12.0 [facility] Comment on above: Performed By: #### L 100.0100, L500.2500 ####[facility] [address] [place], [address] Platelets (Bld) [#/Vol] 208 10*3/uL Normal 150-450 [facility] Comment on above: Performed By: #### L 100.0100, L500.2500 ####[facility] [address] [place], [address] RBC (Bld) [#/Vol] 3.24 10*6/uL Low 4.6-6.2 [facility] Comment on above: Performed By: #### L 100.0100, L500.2500 ####[facility] [address] [place], [address] RDW SD 53.5 fl High 35.1-43.9 [facility] Comment on above: Performed By: #### L 100.0100, L500.2500 ####[facility] [address] [place], [address] WBC (Bld) [#/Vol] 9.0 10*3/uL Normal 4.4-11.0 [facility] Comment on above: Performed By: #### L 100.0100, L500.2500 ####[facility] [address] [place], [address] Carbon dioxide, total [Moles /volume] in Central venous bloodOrdered By: Nicola Roman on 04-10-2025 CO2 [Moles/Vol] 32.1 mmol/L High 21.0-32.0 [facility] Chest without Contraston Chest without Contrast Normal [facility] Chloride assayOrdered By: Stephen Roman on 04-10-2025 Chloride [Moles/Vol] 92 mmol/L Low 98-108 [facility] Cytology report of Body flui d Cyto stainOrdered By: Nicola Roman on 04-10-2025 Cytology report Cyto stain Doc (Body fld) SEE PATHOLOGY REPORT [facility] Cytology, Body Fluid / CSFon 04-10-2025 CYTOLOGY,BF/CSF SEE PATHOLOGY REPORT Normal [facility] Comment on above: Result Comment: Spec imen submitted to Anatomical Pathology Department fortesting. Performed By: #### M 100.2900, M100.4001, L350.1000, L200.0200, M100.2000 ####[facility] [address] [place], [place], [id number] Eosinophil percentageOrdered By: Nicola Roman on 04-10-2025 Eosinophils/100 WBC (Bld) 0.0 % 0-5 [facility] Erythrocyte distribution wid th ratioOrdered By: Nicola Roman on 04-10-2025 Erythrocyte distribution width (RBC) [Ratio] 17.1 % High 11.6-14.6 [facility] Erythrocyte distribution wid th standard deviationOrdered By: Nicola Roman on 04-10-2025 Erythrocyte distribution width (RBC) [Ratio] 53.5 fl High 35.1-43.9 [facility] Glomerular filtration rate ( GFR) estimation/1.73 sq m using serum, plasma, or whole bOrdered By: Nicola Roman on 04-10-2025 GFR/1.73 sq M.predicted among non-blacks MDRD (S/P/Bld) [Vol rate/Area] 40 mL/min/{1.73_m2} Low >60 [facility] Glucose measurement at bedsi deOrdered By: Nicola Roman on 04-10-2025 Glucose [Mass/Vol] 327 mg/dL High 74-106 [facility] Glucose, Body Fluidon 2024 GLUC, BODY FLD 274 mg/dL Normal Not Establ. [facility] Comment on above: Performed By: #### L 504.0250, L503.0100, L503.0300 ####[facility] [address] [place], [address] Gram stainOrdered By: Nicola Roman on 04-10-2025 Microscopic observation Gram stain Nom (Unsp spec) [facility] Hematocrit Auto (Bld) [Volum e fraction]Ordered By: Nicola Roman on 04-10-2025 Hematocrit (Bld) [Volume fraction] 28.2 % Low 40-54 [facility] Hemoglobin measurementOrdere d By: Nicola Roman on 04-10-2025 Hemoglobin (Bld) [Mass/Vol] 8.7 g/dL Low 13.0-16.5 [facility] Immature granulocytes/100 WB C Auto (Bld)Ordered By: Nicola Roman on 04-10-2025 Immature granulocytes/100 WBC (Bld) 0.900 % 0.0-0.9 [facility] LDHon 04-10-2025 LDH 179 U/L Normal 87-241 [facility] Comment on above: Order Comment: FG1 3 O Performed By: #### L 504.2610 ####[facility] [address] [place], [address] LDH,Body Fluidon 04-10-2025 LDH,BF 61 Units/L Normal Not Establ. [facility] Comment on above: Performed By: #### L 504.0250, L503.0100, L503.0300 ####[facility] [address] [place], [address] MCV (mean corpuscular volume ) determinationOrdered By: Nicola Roman on 04-10-2025 MCV (RBC) [Entitic vol] 87.0 fL 80-94 [facility] Mean corpuscular hemoglobin (MCH) determinationOrdered By: Nicola Roman on 04-10-2025 MCH (RBC) [Entitic mass] 26.9 pg Low 27.0-32.0 [facility] Monocyte detectionOrdered By : Nicola Roman on 04-10-2025 Monocytes/100 WBC (Bld) 9 % [facility] Monocyte percentageOrdered B y: Nicola Roman on 04-10-2025 Monocytes/100 WBC (Bld) 5.5 % 0-10 [facility] Neutrophil percentageOrdered By: Nicola Roman on 04-10-2025 Neutrophils/100 WBC (Bld) 91.6 % High 47-70 [facility] No Panel InformationOrdered By: Nicola Roman on 04-10-2025 495 /mm3 [facility] SEE COMMENT [facility] Pacemaker Checkon 04-10-2025 Pacemaker Check Normal [facility] Partial Thromboplast Timeon 04-10-2025 aPTT Coag (Bld) [Time] 29.5 s Normal 24.1-36.2 [facility] Comment on above: Performed By: #### L 300.4310, L300.3900 ####[facility] [address] [place], [place], [address] Pathologist interpretation o f Body fluid testsOrdered By: Nicola Roman on 04-10-2025 Pathologist interpretation (Body fld) [Interp] Reviewed [facility] Platelet countOrdered By: Stephen Roman on 04-10-2025 Platelets (Bld) [#/Vol] 208 10*3/uL 150-450 [facility] Potassium measurement (mass/ volume)Ordered By: Nicola Roman on 04-10-2025 Potassium (Unsp spec) [Mass/Vol] 4.1 mmol/L 3.3-5.1 [facility] Protein, Body Fluidon 2024 Protein [Mass/Vol] 2.1 g/dL Normal Not Establ. [facility] Comment on above: Performed By: #### L 504.0250, L503.0100, L503.0300 ####[facility] [address] [place], [place], [id number] Prothrombin Time w/INRon INR Coag (PPP) [Relative time] 1.3 {INR} Normal [facility] Comment on above: Performed By: #### L 300.4310, L300.3900 ####[facility] [address] [place], [address] PT Coag (PPP) [Time] 16.7 s High 11.7-14.9 [facility] Comment on above: Performed By: #### L 300.4310, L300.3900 ####[facility] [address] [place], [place], [id number] Prothrombin timeOrdered By: Nicola Marroquin on 04-10-2025 PT Coag (PPP) [Time] 16.7 s High 11.7-14.9 [facility] RBC Auto (Bld) [#/Vol]Ordere d By: Nicola Roman on 04-10-2025 RBC (Bld) [#/Vol] 3.24 10*6/uL Low 4.6-6.2 [facility] Serum creatinine measurement (mass/volume)Ordered By: Nicola Roman on 04-10-2025 Creatinine [Mass/Vol] 1.71 mg/dL High 0.70-1.20 [facility] Serum glucose measurement (m ass/volume)Ordered By: Nicola Roman on 04-10-2025 Glucose [Mass/Vol] 244 mg/dL High 70-99 [facility] Serum or plasma calcium kingsley urement (mass/volume)Ordered By: Nicola Roman on 04-10-2025 Calcium [Mass/Vol] 8.4 mg/dL 7.6-11.0 [facility] Serum or plasma urea nitroge n measurement (mass/volume)Ordered By: Nicola Roman on 04-10-2025 Urea nitrogen [Mass/Vol] 76 mg/dL High 4-19 [facility] Sodium levelOrdered By: Jaspal Roman on 04-10-2025 Sodium [Moles/Vol] 137 mmol/L 133-145 [facility] Special Stain Group IIon Special Stain Group II Normal [facility] Comment on above: Performed By: #### P SSII ####[facility] [address] [place], [address] Specimen source identificati on of body fluidOrdered By: Nicola Roman on 04-10-2025 Specimen source Nom (Body fld) THORACENTESIS [facility] Thoracentesis W USon 025 Thoracentesis W US Normal [facility] White blood cell (WBC) count Ordered By: Nicola Roman on 04-10-2025 WBC (Bld) [#/Vol] 9.0 10*3/uL 4.4-11.0 [facility] 12 Lead EKGon 04-09-2025 12 Lead EKG Normal [facility] Basic Metabolic Profile (BMP )on 04-09-2025 BUN/CRE 37.7 RATIO High 10-20 [facility] Comment on above: Performed By: #### L 501.2300, L100.0100, L500.2500, L501.5200 ####[facility] [address] [place], [address] Calcium [Mass/Vol] 8.4 mg/dL Normal 7.6-11.0 [facility] Comment on above: Performed By: #### L 501.2300, L100.0100, L500.2500, L501.5200 ####[facility] [address] [place], [address] Chloride [Moles/Vol] 92 mmol/L Low 98-108 [facility] Comment on above: Performed By: #### L 501.2300, L100.0100, L500.2500, L501.5200 ####[facility] [address] [place], [address] CO2 [Moles/Vol] 31.9 mmol/L Normal 21.0-32.0 [facility] Comment on above: Performed By: #### L 501.2300, L100.0100, L500.2500, L501.5200 ####[facility] [address] [place], [address] Creatinine [Mass/Vol] 1.95 mg/dL High 0.70-1.20 [facility] Comment on above: Performed By: #### L 501.2300, L100.0100, L500.2500, L501.5200 ####[facility] [address] [place], [address] ECRCL 27.26 ml/min Low 50-250 [facility] Comment on above: Performed By: #### L 501.2300, L100.0100, L500.2500, L501.5200 ####[facility] [address] [place], [address] GAP 12 Normal 5-15 [facility] Comment on above: Performed By: #### L 501.2300, L100.0100, L500.2500, L501.5200 ####[facility] [address] [place], [address] GFR/1.73 sq M.predicted among non-blacks MDRD (S/P/Bld) [Vol rate/Area] 34 mL/min/{1.73_m2} Low >60 [facility] Comment on above: Result Comment: mL/m in/1.73m2 CKD-EPI Creatinine Equation (2020) Performed By: #### L 501.2300, L100.0100, L500.2500, L501.5200 ####[facility] [address] [place], [address] Glucose [Mass/Vol] 232 mg/dL High 70-99 [facility] Comment on above: Performed By: #### L 501.2300, L100.0100, L500.2500, L501.5200 ####[facility] [address] [place], [address] Potassium [Moles/Vol] 3.9 mmol/L Normal 3.3-5.1 [facility] Comment on above: Performed By: #### L 501.2300, L100.0100, L500.2500, L501.5200 ####[facility] [address] [place], [address] Sodium [Moles/Vol] 135 mmol/L Normal 133-145 [facility] Comment on above: Performed By: #### L 501.2300, L100.0100, L500.2500, L501.5200 ####[facility] [address] [place], [address] Urea nitrogen [Mass/Vol] 74 mg/dL High 4-19 [facility] Comment on above: Performed By: #### L 501.2300, L100.0100, L500.2500, L501.5200 ####[facility] [address] [place], [address] Bedside Glucoseon 04-09-2025 FINGERSTICK GLU 316 mg/dL High 74-106 [facility] Comment on above: Result Comment: KODY GEMENT OF PATIENT CARE PER NURSING PROTOCOL Performed By: #### L 501.080 ####[facility] [address] [place], [address] FINGERSTICK GLU 209 mg/dL High 74-106 [facility] Comment on above: Result Comment: KODY GEMENT OF PATIENT CARE PER NURSING PROTOCOL Performed By: #### L 501.080 ####[facility] [address] [place], [address] FINGERSTICK GLU 273 mg/dL High 74-106 [facility] Comment on above: Result Comment: KODY GEMENT OF PATIENT CARE PER NURSING PROTOCOL Performed By: #### L 501.080 ####[facility] [address] [place], [address] CBC W/Diff, Automatedon 08-2 Absolute Lymph 0.19 X10 3/uL Low 0.83-4.51 [facility] Comment on above: Performed By: #### L 501.2300, L100.0100, L500.2500, L501.5200 ####[facility] [address] [place], [address] Absolute Neut 6.3 X10 3/uL Normal 2.0-7.7 [facility] Comment on above: Performed By: #### L 501.2300, L100.0100, L500.2500, L501.5200 ####[facility] [address] [place], [address] Basophils/100 WBC (Bld) 0.1 % Normal 0-1 [facility] Comment on above: Performed By: #### L 501.2300, L100.0100, L500.2500, L501.5200 ####[facility] [address] [place], [address] Eosinophils/100 WBC (Bld) 0.0 % Normal 0-5 [facility] Comment on above: Performed By: #### L 501.2300, L100.0100, L500.2500, L501.5200 ####[facility] [address] [place], [address] Erythrocyte distribution width (RBC) [Ratio] 16.9 % High 11.6-14.6 [facility] Comment on above: Performed By: #### L 501.2300, L100.0100, L500.2500, L501.5200 ####[facility] [address] [place], [address] Hematocrit (Bld) [Volume fraction] 27.7 % Low 40-54 [facility] Comment on above: Performed By: #### L 501.2300, L100.0100, L500.2500, L501.5200 ####[facility] [address] [place], [address] Hemoglobin (Bld) [Mass/Vol] 8.6 g/dL Low 13.0-16.5 [facility] Comment on above: Performed By: #### L 501.2300, L100.0100, L500.2500, L501.5200 ####[facility] [address] [place], [address] IG% 0.600 Normal 0.0-0.9 [facility] Comment on above: Result Comment: IG% - Immature Granulocytes (promyelocytes, myelocytes andmetamyelocytes) > 1% indicates that a LEFT SHIFT is Present. Performed By: #### L 501.2300, L100.0100, L500.2500, L501.5200 ####[facility] [address] [place], [address] Lymphocytes/100 WBC (Bld) 2.8 % Low 19-41 [facility] Comment on above: Performed By: #### L 501.2300, L100.0100, L500.2500, L501.5200 ####[facility] [address] [place], [address] MCH (RBC) [Entitic mass] 27.0 pg Normal 27.0-32.0 [facility] Comment on above: Performed By: #### L 501.2300, L100.0100, L500.2500, L501.5200 ####[facility] [address] [place], [address] MCHC (RBC) [Mass/Vol] 31.0 g/dL Low 32-36 [facility] Comment on above: Performed By: #### L 501.2300, L100.0100, L500.2500, L501.5200 ####[facility] [address] [place], [address] MCV (RBC) [Entitic vol] 87.1 fL Normal 80-94 [facility] Comment on above: Performed By: #### L 501.2300, L100.0100, L500.2500, L501.5200 ####[facility] [address] [place], [address] Monocytes/100 WBC (Bld) 4.7 % Normal 0-10 [facility] Comment on above: Performed By: #### L 501.2300, L100.0100, L500.2500, L501.5200 ####[facility] [address] [place], [address] Neutrophils/100 WBC (Bld) 91.8 % High 47-70 [facility] Comment on above: Performed By: #### L 501.2300, L100.0100, L500.2500, L501.5200 ####[facility] [address] [place], [address] Nucleated RBC (Bld) [#/Vol] 0.3 10*3/uL Normal 0-5 [facility] Comment on above: Performed By: #### L 501.2300, L100.0100, L500.2500, L501.5200 ####[facility] [address] [place], [address] Platelet mean volume (Bld) [Entitic vol] 10.1 fL Normal 6.2-12.0 [facility] Comment on above: Performed By: #### L 501.2300, L100.0100, L500.2500, L501.5200 ####[facility] [address] [place], [address] Platelets (Bld) [#/Vol] 203 10*3/uL Normal 150-450 [facility] Comment on above: Performed By: #### L 501.2300, L100.0100, L500.2500, L501.5200 ####[facility] [address] [place], [address] RBC (Bld) [#/Vol] 3.18 10*6/uL Low 4.6-6.2 [facility] Comment on above: Performed By: #### L 501.2300, L100.0100, L500.2500, L501.5200 ####[facility] [address] [place], [address] RDW SD 53.1 fl High 35.1-43.9 [facility] Comment on above: Performed By: #### L 501.2300, L100.0100, L500.2500, L501.5200 ####[facility] [address] [place], [address] WBC (Bld) [#/Vol] 6.9 10*3/uL Normal 4.4-11.0 [facility] Comment on above: Performed By: #### L 501.2300, L100.0100, L500.2500, L501.5200 ####[facility] [address] [place], [address] CVS/PACEMAKERon 04-09-2025 CVS/PACEMAKER Normal [facility] Chest 1 View (Portable)on Chest 1 View (Portable) Normal [facility] Electrocardiogram reportOrde red By: Orly Mitchell on 04-09-2025 EKG study [facility] Work Phone: Magnesiumon 04-09-2025 Magnesium [Mass/Vol] 2.2 mg/dL Normal 1.5-2.2 [facility] Comment on above: Performed By: #### L 501.2300, L100.0100, L500.2500, L501.5200 ####[facility] [address] [place], [address] Magnesium measurement (mass/ volume)Ordered By: Nicola Roman on 04-09-2025 Magnesium (Unsp spec) [Mass/Vol] 2.2 mg/dL 1.5-2.2 [facility] Phosphoruson 04-09-2025 Phosphate [Mass/Vol] 3.9 mg/dL Normal 2.7-4.5 [facility] Comment on above: Performed By: #### L 501.2300, L100.0100, L500.2500, L501.5200 ####[facility] [address] [place], [address] Basic Metabolic Profile (BMP )on 04-08-2025 BUN/CRE 33.8 RATIO High - [facility] Comment on above: Performed By: #### L 100.0100, L500.2500 ####[facility] [address] [place], [address] Calcium [Mass/Vol] 8.6 mg/dL Normal 7.6-11.0 [facility] Comment on above: Performed By: #### L 100.0100, L500.2500 ####[facility] [address] [place], [address] Chloride [Moles/Vol] 95 mmol/L Low 98-108 [facility] Comment on above: Performed By: #### L 100.0100, L500.2500 ####[facility] [address] [place], [address] CO2 [Moles/Vol] 32.0 mmol/L Normal 21.0-32.0 [facility] Comment on above: Performed By: #### L 100.0100, L500.2500 ####[facility] [address] [place], [address] Creatinine [Mass/Vol] 1.91 mg/dL High 0.70-1.20 [facility] Comment on above: Performed By: #### L 100.0100, L500.2500 ####[facility] [address] [place], [address] ECRCL 27.84 ml/min Low 50-250 [facility] Comment on above: Performed By: #### L 100.0100, L500.2500 ####[facility] [address] [place], [address] GAP 11 Normal 5-15 [facility] Comment on above: Performed By: #### L 100.0100, L500.2500 ####[facility] [address] [place], [address] GFR/1.73 sq M.predicted among non-blacks MDRD (S/P/Bld) [Vol rate/Area] 35 mL/min/{1.73_m2} Low >60 [facility] Comment on above: Result Comment: mL/m in/1.73m2 CKD-EPI Creatinine Equation (2020) Performed By: #### L 100.0100, L500.2500 ####[facility] [address] [place], [address] Glucose [Mass/Vol] 240 mg/dL High 70-99 [facility] Comment on above: Performed By: #### L 100.0100, L500.2500 ####[facility] [address] [place], [address] Potassium [Moles/Vol] 4.0 mmol/L Normal 3.3-5.1 [facility] Comment on above: Performed By: #### L 100.0100, L500.2500 ####[facility] [address] [place], [address] Sodium [Moles/Vol] 138 mmol/L Normal 133-145 [facility] Comment on above: Performed By: #### L 100.0100, L500.2500 ####[facility] [address] [place], [address] Urea nitrogen [Mass/Vol] 65 mg/dL High 4-19 [facility] Comment on above: Performed By: #### L 100.0100, L500.2500 ####[facility] [address] [place], [address] Bedside Glucoseon 04-08-2024 FINGERSTICK GLU 216 mg/dL High 74-106 [facility] Comment on above: Result Comment: KODY GEMENT OF PATIENT CARE PER NURSING PROTOCOL Performed By: #### L 501.080 ####[facility] [address] [place], [address] FINGERSTICK GLU 270 mg/dL High 74-106 [facility] Comment on above: Result Comment: KODY GEMENT OF PATIENT CARE PER NURSING PROTOCOL Performed By: #### L 501.080 ####[facility] [address] [place], [address] FINGERSTICK GLU 199 mg/dL High 74-106 [facility] Comment on above: Result Comment: KODY GEMENT OF PATIENT CARE PER NURSING PROTOCOL Performed By: #### L 501.080 ####[facility] [address] [place], [address] CBC W/Diff, Automatedon 08-2 0-2024 Absolute Lymph 0.24 X10 3/uL Low 0.83-4.51 [facility] Comment on above: Performed By: #### L 100.0100, L500.2500 ####[facility] [address] [place], [address] Absolute Neut 6.3 X10 3/uL Normal 2.0-7.7 [facility] Comment on above: Performed By: #### L 100.0100, L500.2500 ####[facility] [address] [place], [address] Basophils/100 WBC (Bld) 0.0 % Normal 0-1 [facility] Comment on above: Performed By: #### L 100.0100, L500.2500 ####[facility] [address] [place], [address] Eosinophils/100 WBC (Bld) 0.0 % Normal 0-5 [facility] Comment on above: Performed By: #### L 100.0100, L500.2500 ####[facility] [address] [place], [address] Erythrocyte distribution width (RBC) [Ratio] 17.2 % High 11.6-14.6 [facility] Comment on above: Performed By: #### L 100.0100, L500.2500 ####[facility] [address] [place], [address] Hematocrit (Bld) [Volume fraction] 27.0 % Low 40-54 [facility] Comment on above: Performed By: #### L 100.0100, L500.2500 ####[facility] [address] [place], [address] Hemoglobin (Bld) [Mass/Vol] 8.3 g/dL Low 13.0-16.5 [facility] Comment on above: Performed By: #### L 100.0100, L500.2500 ####[facility] [address] [place], [address] IG% 0.600 Normal 0.0-0.9 [facility] Comment on above: Result Comment: IG% - Immature Granulocytes (promyelocytes, myelocytes andmetamyelocytes) > 1% indicates that a LEFT SHIFT is Present. Performed By: #### L 100.0100, L500.2500 ####[facility] [address] [place], [address] Lymphocytes/100 WBC (Bld) 3.5 % Low 19-41 [facility] Comment on above: Performed By: #### L 100.0100, L500.2500 ####[facility] [address] [place], [address] MCH (RBC) [Entitic mass] 26.9 pg Low 27.0-32.0 [facility] Comment on above: Performed By: #### L 100.0100, L500.2500 ####[facility] [address] [place], [address] MCHC (RBC) [Mass/Vol] 30.7 g/dL Low 32-36 [facility] Comment on above: Performed By: #### L 100.0100, L500.2500 ####[facility] [address] [place], [address] MCV (RBC) [Entitic vol] 87.4 fL Normal 80-94 [facility] Comment on above: Performed By: #### L 100.0100, L500.2500 ####[facility] [address] [place], [address] Monocytes/100 WBC (Bld) 4.5 % Normal 0-10 [facility] Comment on above: Performed By: #### L 100.0100, L500.2500 ####[facility] [address] [place], [address] Neutrophils/100 WBC (Bld) 91.4 % High 47-70 [facility] Comment on above: Performed By: #### L 100.0100, L500.2500 ####[facility] [address] [place], [address] Nucleated RBC (Bld) [#/Vol] 0 10*3/uL Normal 0-5 [facility] Comment on above: Performed By: #### L 100.0100, L500.2500 ####[facility] [address] [place], [address] Platelet mean volume (Bld) [Entitic vol] 10.7 fL Normal 6.2-12.0 [facility] Comment on above: Performed By: #### L 100.0100, L500.2500 ####[facility] [address] [place], [address] Platelets (Bld) [#/Vol] 192 10*3/uL Normal 150-450 [facility] Comment on above: Performed By: #### L 100.0100, L500.2500 ####[facility] [address] [place], [address] RBC (Bld) [#/Vol] 3.09 10*6/uL Low 4.6-6.2 [facility] Comment on above: Performed By: #### L 100.0100, L500.2500 ####[facility] [address] [place], [address] RDW SD 54.2 fl High 35.1-43.9 [facility] Comment on above: Performed By: #### L 100.0100, L500.2500 ####[facility] [address] [place], [address] WBC (Bld) [#/Vol] 6.9 10*3/uL Normal 4.4-11.0 [facility] Comment on above: Performed By: #### L 100.0100, L500.2500 ####[facility] [address] [place], [address] Consultation - Cardiologyon 04-08-2025 Consultation - Cardiology Normal [facility] Basic Metabolic Profile (BMP )on 04-07-2025 BUN/CRE 26.3 RATIO High 10-20 [facility] Comment on above: Performed By: #### L 500.2500, L501.2300 ####[facility] [address] [place], [address] Calcium [Mass/Vol] 8.8 mg/dL Normal 7.6-11.0 [facility] Comment on above: Performed By: #### L 500.2500, L501.2300 ####[facility] [address] [place], [address] Chloride [Moles/Vol] 96 mmol/L Low 98-108 [facility] Comment on above: Performed By: #### L 500.2500, L501.2300 ####[facility] [address] [place], [address] CO2 [Moles/Vol] 29.8 mmol/L Normal 21.0-32.0 [facility] Comment on above: Performed By: #### L 500.2500, L501.2300 ####[facility] [address] [place], [address] Creatinine [Mass/Vol] 2.21 mg/dL High 0.70-1.20 [facility] Comment on above: Performed By: #### L 500.2500, L501.2300 ####[facility] [address] [place], [address] ECRCL 24.06 ml/min Low 50-250 [facility] Comment on above: Performed By: #### L 500.2500, L501.2300 ####[facility] [address] [place], [address] GAP 11 Normal 5-15 [facility] Comment on above: Performed By: #### L 500.2500, L501.2300 ####[facility] [address] [place], [address] GFR/1.73 sq M.predicted among non-blacks MDRD (S/P/Bld) [Vol rate/Area] 29 mL/min/{1.73_m2} Low >60 [facility] Comment on above: Result Comment: mL/m in/1.73m2 CKD-EPI Creatinine Equation (2020) Performed By: #### L 500.2500, L501.2300 ####[facility] [address] [place], [address] Glucose [Mass/Vol] 171 mg/dL High 70-99 [facility] Comment on above: Performed By: #### L 500.2500, L501.2300 ####[facility] [address] [place], [address] Potassium [Moles/Vol] 4.6 mmol/L Normal 3.3-5.1 [facility] Comment on above: Performed By: #### L 500.2500, L501.2300 ####[facility] [address] [place], [address] Sodium [Moles/Vol] 137 mmol/L Normal 133-145 [facility] Comment on above: Performed By: #### L 500.2500, L501.2300 ####[facility] [address] [place], [address] Urea nitrogen [Mass/Vol] 58 mg/dL High -19 [facility] Comment on above: Performed By: #### L 500.2500, L501.2300 ####[facility] [address] [place], [address] Bedside Glucoseon 04-07-2025 FINGERSTICK GLU 272 mg/dL High 74-106 [facility] Comment on above: Result Comment: KODY GEMENT OF PATIENT CARE PER NURSING PROTOCOL Performed By: #### L 501.080 ####[facility] [address] [place], [address] FINGERSTICK GLU 249 mg/dL High 74-106 [facility] Comment on above: Result Comment: KODY GEMENT OF PATIENT CARE PER NURSING PROTOCOL Performed By: #### L 501.080 ####[facility] [address] [place], [address] FINGERSTICK GLU 303 mg/dL High 74-106 [facility] Comment on above: Result Comment: KODY GEMENT OF PATIENT CARE PER NURSING PROTOCOL Performed By: #### L 501.080 ####[facility] [address] [place], [address] FINGERSTICK GLU 162 mg/dL High 74-106 [facility] Comment on above: Result Comment: KODY STRONG OF PATIENT CARE PER NURSING PROTOCOL Performed By: #### L 501.080 ####[facility] [address] [place], [address] CBC W/Diff, Automatedon - Absolute Lymph 0.20 X10 3/uL Low 0.83-4.51 [facility] Comment on above: Performed By: #### L 100.0100 ####[facility] [address] [place], [address] Absolute Neut 5.9 X10 3/uL Normal 2.0-7.7 [facility] Comment on above: Performed By: #### L 100.0100 ####[facility] [address] [place], [address] Basophils/100 WBC (Bld) 0.2 % Normal 0-1 [facility] Comment on above: Performed By: #### L 100.0100 ####[facility] [address] [place], [address] Eosinophils/100 WBC (Bld) 0.0 % Normal 0-5 [facility] Comment on above: Performed By: #### L 100.0100 ####[facility] [address] [place], [address] Erythrocyte distribution width (RBC) [Ratio] 17.1 % High 11.6-14.6 [facility] Comment on above: Performed By: #### L 100.0100 ####[facility] [address] [place], [address] Hematocrit (Bld) [Volume fraction] 25.6 % Low 40-54 [facility] Comment on above: Performed By: #### L 100.0100 ####[facility] [address] [place], [address] Hemoglobin (Bld) [Mass/Vol] 8.0 g/dL Low 13.0-16.5 [facility] Comment on above: Performed By: #### L 100.0100 ####[facility] [address] [place], [address] IG% 1.400 High 0.0-0.9 [facility] Comment on above: Result Comment: IG% - Immature Granulocytes (promyelocytes, myelocytes andmetamyelocytes) > 1% indicates that a LEFT SHIFT is Present. Performed By: #### L 100.0100 ####[facility] [address] [place], [address] Lymphocytes/100 WBC (Bld) 3.1 % Low 19-41 [facility] Comment on above: Performed By: #### L 100.0100 ####[facility] [address] [place], [address] MCH (RBC) [Entitic mass] 27.0 pg Normal 27.0-32.0 [facility] Comment on above: Performed By: #### L 100.0100 ####[facility] [address] [place], [address] MCHC (RBC) [Mass/Vol] 31.3 g/dL Low 32-36 [facility] Comment on above: Performed By: #### L 100.0100 ####[facility] [address] [place], [address] MCV (RBC) [Entitic vol] 86.5 fL Normal 80-94 [facility] Comment on above: Performed By: #### L 100.0100 ####[facility] [address] [place], [address] Monocytes/100 WBC (Bld) 2.5 % Normal 0-10 [facility] Comment on above: Performed By: #### L 100.0100 ####[facility] [address] [place], [address] Neutrophils/100 WBC (Bld) 92.8 % High 47-70 [facility] Comment on above: Performed By: #### L 100.0100 ####[facility] [address] [place], [address] Nucleated RBC (Bld) [#/Vol] 0 10*3/uL Normal 0-5 [facility] Comment on above: Performed By: #### L 100.0100 ####[facility] [address] [place], [address] Platelet mean volume (Bld) [Entitic vol] 10.4 fL Normal 6.2-12.0 [facility] Comment on above: Performed By: #### L 100.0100 ####[facility] [address] [place], [address] Platelets (Bld) [#/Vol] 189 10*3/uL Normal 150-450 [facility] Comment on above: Performed By: #### L 100.0100 ####[facility] [address] [place], [address] RBC (Bld) [#/Vol] 2.96 10*6/uL Low 4.6-6.2 [facility] Comment on above: Performed By: #### L 100.0100 ####[facility] [address] [place], [address] RDW SD 53.1 fl High 35.1-43.9 [facility] Comment on above: Performed By: #### L 100.0100 ####[facility] [address] [place], [address] WBC (Bld) [#/Vol] 6.4 10*3/uL Normal 4.4-11.0 [facility] Comment on above: Performed By: #### L 100.0100 ####[facility] [address] [place], [address] Electrocardiogram reportOrde red By: Issa Looney on 04-07-2025 EKG study [facility] Work Phone: Phosphoruson 04-07-2025 Phosphate [Mass/Vol] 4.6 mg/dL High 2.7-4.5 [facility] Comment on above: Performed By: #### L 500.2500, L501.2300 ####[facility] [address] [place], [address] Bedside Glucoseon 04-06-2025 FINGERSTICK GLU 378 mg/dL High 74-106 [facility] Comment on above: Result Comment: KODY GEMENT OF PATIENT CARE PER NURSING PROTOCOL Performed By: #### L 501.080 ####[facility] [address] [place], [address] FINGERSTICK GLU 168 mg/dL High 74-106 [facility] Comment on above: Result Comment: KODY GEMENT OF PATIENT CARE PER NURSING PROTOCOL Performed By: #### L 501.080 ####[facility] [address] [place], [address] FINGERSTICK GLU 140 mg/dL High 74-106 [facility] Comment on above: Result Comment: KODY GEMENT OF PATIENT CARE PER NURSING PROTOCOL Performed By: #### L 501.080 ####[facility] [address] [place], [address] FINGERSTICK GLU 116 mg/dL High 74-106 [facility] Comment on above: Result Comment: KODY GEMENT OF PATIENT CARE PER NURSING PROTOCOL Performed By: #### L 501.080 ####[facility] [address] [place], [address] FINGERSTICK GLU 112 mg/dL High 74-106 [facility] Comment on above: Result Comment: KODY GEMENT OF PATIENT CARE PER NURSING PROTOCOL Performed By: #### L 501.080 ####[facility] [address] [place], [address] Bilirubin, totalOrdered By: Nicola Madison on 04-06-2025 Bilirubin [Mass/Vol] 0.40 mg/dL 0.00-1.30 [facility] CBC W/Diff, Automatedon 03-20 Absolute Lymph 0.50 X10 3/uL Low 0.83-4.51 [facility] Comment on above: Performed By: #### L 100.0100 ####[facility] [address] [place], [address] Absolute Neut 6.4 X10 3/uL Normal 2.0-7.7 [facility] Comment on above: Performed By: #### L 100.0100 ####[facility] [address] [place], [address] Basophils/100 WBC (Bld) 0.5 % Normal 0-1 [facility] Comment on above: Performed By: #### L 100.0100 ####[facility] [address] [place], [address] Eosinophils/100 WBC (Bld) 0.5 % Normal 0-5 [facility] Comment on above: Performed By: #### L 100.0100 ####[facility] [address] [place], [address] Erythrocyte distribution width (RBC) [Ratio] 16.8 % High 11.6-14.6 [facility] Comment on above: Performed By: #### L 100.0100 ####[facility] [address] [place], [address] Hematocrit (Bld) [Volume fraction] 26.3 % Low 40-54 [facility] Comment on above: Performed By: #### L 100.0100 ####[facility] [address] [place], [address] Hemoglobin (Bld) [Mass/Vol] 7.9 g/dL Low 13.0-16.5 [facility] Comment on above: Performed By: #### L 100.0100 ####[facility] [address] [place], [address] IG% 0.600 Normal 0.0-0.9 [facility] Comment on above: Result Comment: IG% - Immature Granulocytes (promyelocytes, myelocytes andmetamyelocytes) > 1% indicates that a LEFT SHIFT is Present. Performed By: #### L 100.0100 ####[facility] [address] [place], [address] Lymphocytes/100 WBC (Bld) 6.4 % Low 19-41 [facility] Comment on above: Performed By: #### L 100.0100 ####[facility] [address] [place], [address] MCH (RBC) [Entitic mass] 26.9 pg Low 27.0-32.0 [facility] Comment on above: Performed By: #### L 100.0100 ####[facility] [address] [place], [address] MCHC (RBC) [Mass/Vol] 30.0 g/dL Low 32-36 [facility] Comment on above: Performed By: #### L 100.0100 ####[facility] [address] [place], [address] MCV (RBC) [Entitic vol] 89.5 fL Normal 80-94 [facility] Comment on above: Performed By: #### L 100.0100 ####[facility] [address] [place], [address] Monocytes/100 WBC (Bld) 10.1 % High 0-10 [facility] Comment on above: Performed By: #### L 100.0100 ####[facility] [address] [place], [address] Neutrophils/100 WBC (Bld) 81.9 % High 47-70 [facility] Comment on above: Performed By: #### L 100.0100 ####[facility] [address] [place], [address] Nucleated RBC (Bld) [#/Vol] 0 10*3/uL Normal 0-5 [facility] Comment on above: Performed By: #### L 100.0100 ####[facility] [address] [place], [address] Platelet mean volume (Bld) [Entitic vol] 10.4 fL Normal 6.2-12.0 [facility] Comment on above: Performed By: #### L 100.0100 ####[facility] [address] [place], [address] Platelets (Bld) [#/Vol] 178 10*3/uL Normal 150-450 [facility] Comment on above: Performed By: #### L 100.0100 ####[facility] [address] [place], [address] RBC (Bld) [#/Vol] 2.94 10*6/uL Low 4.6-6.2 [facility] Comment on above: Performed By: #### L 100.0100 ####[facility] [address] [place], [address] RDW SD 54.7 fl High 35.1-43.9 [facility] Comment on above: Performed By: #### L 100.0100 ####[facility] [address] [place], [address] WBC (Bld) [#/Vol] 7.8 10*3/uL Normal 4.4-11.0 [facility] Comment on above: Performed By: #### L 100.0100 ####[facility] [address] [place], [address] Chest 1 View (Portable)on Chest 1 View (Portable) Normal [facility] Comprehensive Metabolic Prof ilon 04-06-2025 Albumin [Mass/Vol] 3.3 g/dL Low 3.4-4.8 [facility] Comment on above: Performed By: #### L 501.2300, L503.7505, L500.4050 ####[facility] [address] [place], [address] Albumin/Globulin [Mass ratio] 0.9 {ratio} Normal 0.9-2.4 [facility] Comment on above: Performed By: #### L 501.2300, L503.7505, L500.4050 ####[facility] [address] [place], [address] ALK PHOS 70 U/L Normal 40-129 [facility] Comment on above: Performed By: #### L 501.2300, L503.7505, L500.4050 ####[facility] [address] [place], [address] ALT [Catalytic activity/Vol] 13 U/L Normal <=46 [facility] Comment on above: Performed By: #### L 501.2300, L503.7505, L500.4050 ####[facility] [address] [place], [address] AST [Catalytic activity/Vol] 19 U/L Normal <=37 [facility] Comment on above: Performed By: #### L 501.2300, L503.7505, L500.4050 ####[facility] [address] [place], [address] Bilirubin [Mass/Vol] 0.40 mg/dL Normal 0.00-1.30 [facility] Comment on above: Performed By: #### L 501.2300, L503.7505, L500.4050 ####[facility] [address] [place], [address] BUN/CRE 22.8 RATIO High 10-20 [facility] Comment on above: Performed By: #### L 501.2300, L503.7505, L500.4050 ####[facility] [address] [place], [address] Calcium [Mass/Vol] 8.8 mg/dL Normal 7.6-11.0 [facility] Comment on above: Performed By: #### L 501.2300, L503.7505, L500.4050 ####[facility] [address] [place], [address] Chloride [Moles/Vol] 100 mmol/L Normal 98-108 [facility] Comment on above: Performed By: #### L 501.2300, L503.7505, L500.4050 ####[facility] [address] [place], [address] CO2 [Moles/Vol] 27.9 mmol/L Normal 21.0-32.0 [facility] Comment on above: Performed By: #### L 501.2300, L503.7505, L500.4050 ####[facility] [address] [place], [address] Creatinine [Mass/Vol] 2.52 mg/dL High 0.70-1.20 [facility] Comment on above: Performed By: #### L 501.2300, L503.7505, L500.4050 ####[facility] [address] [place], [address] ECRCL 22.79 ml/min Low 50-250 [facility] Comment on above: Performed By: #### L 501.2300, L503.7505, L500.4050 ####[facility] [address] [place], [address] GAP 10 Normal 5-15 [facility] Comment on above: Performed By: #### L 501.2300, L503.7505, L500.4050 ####[facility] [address] [place], [address] GFR/1.73 sq M.predicted among non-blacks MDRD (S/P/Bld) [Vol rate/Area] 25 mL/min/{1.73_m2} Low >60 [facility] Comment on above: Result Comment: mL/m in/1.73m2 CKD-EPI Creatinine Equation (2020) Performed By: #### L 501.2300, L503.7505, L500.4050 ####[facility] [address] [place], [address] Globulin (S) [Mass/Vol] 3.5 g/dL Normal 2.2-4.2 [facility] Comment on above: Performed By: #### L 501.2300, L503.7505, L500.4050 ####[facility] [address] [place], [address] Glucose [Mass/Vol] 102 mg/dL High 70-99 [facility] Comment on above: Performed By: #### L 501.2300, L503.7505, L500.4050 ####[facility] [address] [place], [address] Potassium [Moles/Vol] 4.7 mmol/L Normal 3.3-5.1 [facility] Comment on above: Performed By: #### L 501.2300, L503.7505, L500.4050 ####[facility] [address] [place], [address] Sodium [Moles/Vol] 138 mmol/L Normal 133-145 [facility] Comment on above: Performed By: #### L 501.2300, L503.7505, L500.4050 ####[facility] [address] [place], [address] T PROT 6.8 g/dL Normal 5.9-8.4 [facility] Comment on above: Performed By: #### L 501.2300, L503.7505, L500.4050 ####[facility] [address] [place], [address] Urea nitrogen [Mass/Vol] 58 mg/dL High 4-19 [facility] Comment on above: Performed By: #### L 501.2300, L503.7505, L500.4050 ####[facility] [address] [place], [address] Consultation - Nephrologyon 04-06-2025 Consultation - Nephrology Normal [facility] Kidney and Bladderon 025 Kidney and Bladder Normal [facility] Natriuretic peptide.B prohor girish N-Terminal [Mass/volume] in Serum or PlasmaOrdered By: Nicola Madison on 04-06-2025 Natriuretic peptide.B prohormone N-Terminal [Mass/Vol] 4038 pg/mL High <1800 [facility] No Panel InformationOrdered By: Nicola Madison on 04-06-2025 19 U/L <38 [facility] Phosphoruson 04-06-2025 Phosphate [Mass/Vol] 5.4 mg/dL High 2.7-4.5 [facility] Comment on above: Performed By: #### L 501.2300, L503.7505, L500.4050 ####[facility] [address] [place], [address] Pro- Brain NATRIURETIC PEPTI Adrienne 04-06-2025 Natriuretic peptide B (Bld) [Mass/Vol] 4038 pg/mL High <=1800 [facility] Comment on above: Result Comment: Hear t Failure Unlikely: < 300 pg/mLHeart Failure Likely< 50 Years: > 450 pg/mL50-75 Years: > 900 pg/mL>75 Years: > 1800 pg/mL Performed By: #### L 501.2300, L503.7505, L500.4050 ####[facility] [address] [place], [address] Protein+Creatinine Ratio,Uri neon 04-06-2025 PROT:CRE RATIO 1660 mg/g CRE High 0-200 [facility] Comment on above: Performed By: #### L 501.0900 ####[facility] [address] [place], [address] UR CREAT 32.10 mg/dL Low 39.00-259. 00 [facility] Comment on above: Performed By: #### L 501.0900 ####[facility] [address] [place], [address] RESPIRATORY PANEL MOLECULARo n 04-06-2025 RP PANEL Normal [facility] Comment on above: Performed By: #### M 100.638 ####[facility] [address] [place], [address] Random urine creatinine kingsley urement (mass/volume)Ordered By: Renae Sarabia on 04-06-2025 Creatinine Unsp time (U) [Mass/Vol] 32.10 mg/dL Low 39.00-259. 00 [facility] Respiratory pathogens detect ion panel by molecular detection methodOrdered By: Nicola Madison on 04-06-2025 Respiratory pathogens DNA and RNA panel BRYAN+probe (Resp) [facility] Serum globulin measurementOr dered By: Nicola Madison on 04-06-2025 Globulin (S) [Mass/Vol] 3.5 g/dL 2.2-4.2 [facility] Serum or plasma alanine ortiz otransferase (ALT) measurementOrdered By: Nicola Madison on 04-06-2025 ALT [Catalytic activity/Vol] 13 U/L <47 [facility] Serum or plasma albumin kingsley urement (mass/volume)Ordered By: Nicola Madison on 04-06-2025 Albumin [Mass/Vol] 3.3 g/dL Low 3.4-4.8 [facility] Serum or plasma albumin/glob ulin mass ratioOrdered By: Nicola Madison on 04-06-2025 Albumin/Globulin [Mass ratio] 0.9 {ratio} 0.9-2.4 [facility] Serum or plasma alkaline roosevelt sphatase measurementOrdered By: Nicola Madison on 04-06-2025 ALP [Catalytic activity/Vol] 70 U/L 40-129 [facility] Total proteinOrdered By: Jacob Madison on 04-06-2025 Protein [Mass/Vol] 6.8 g/dL 5.9-8.4 [facility] Urine protein measurement (m ass/volume)Ordered By: Renae Sarabia on 04-06-2025 Protein (U) [Mass/Vol] 53.3 mg/dL High 0.0-12.0 [facility] Comment on above: Performed By: #### L 501.0900 ####[facility] [address] [place], [address] Urine protein/creatinine mas s ratioOrdered By: Renae Sarabia on 04-06-2025 Protein/Creatinine (U) [Mass ratio] 1660 mg/g CRE High 0-200 [facility] 12 Lead EKGon 04-05-2025 12 Lead EKG Normal [facility] Absolute lymphocyte countOrd ered By: Ld Hayes on 04-05-2025 Lymphocytes Auto (Unsp spec) [#/Vol] 0.64 10*3/uL Low 0.83-4.51 [facility] Anion gap in Serum or Plasma Ordered By: Ld Hayes on 04-05-2025 Anion gap [Moles/Vol] 11 mmol/L 5-15 [facility] Assessment of wrist artery p atency prior to arterial punctureOrdered By: Nicola Madison on 04-05-2025 Arterial patency Wrist artery --pre arterial puncture Positive [facility] Automated lymphocyte count a s percentage of total leukocytesOrdered By: Ld Hayes on 04-05-2025 Lymphocytes/100 WBC Auto (Unsp spec) 7.3 % Low 19-41 [facility] BUN/creatinine ratioOrdered By: Ld Hayes on 04-05-2025 Urea nitrogen/Creatinine [Mass ratio] 23.2 mg/mg High - [facility] Basic Metabolic Profile (BMP )on 04-05-2025 BUN/CRE 23.2 RATIO High - [facility] Comment on above: Performed By: #### L 100.0100, L500.2500 ####[facility] [address] [place], [address] Calcium [Mass/Vol] 8.8 mg/dL Normal 7.6-11.0 [facility] Comment on above: Performed By: #### L 100.0100, L500.2500 ####[facility] [address] [place], [address] Chloride [Moles/Vol] 97 mmol/L Low 98-108 [facility] Comment on above: Performed By: #### L 100.0100, L500.2500 ####[facility] [address] [place], [address] CO2 [Moles/Vol] 26.7 mmol/L Normal 21.0-32.0 [facility] Comment on above: Performed By: #### L 100.0100, L500.2500 ####[facility] [address] [place], [address] Creatinine [Mass/Vol] 2.57 mg/dL High 0.70-1.20 [facility] Comment on above: Performed By: #### L 100.0100, L500.2500 ####[facility] [address] [place], [address] ECRCL 22.62 ml/min Low 50-250 [facility] Comment on above: Performed By: #### L 100.0100, L500.2500 ####[facility] [address] [place], [address] GAP 11 Normal 5-15 [facility] Comment on above: Performed By: #### L 100.0100, L500.2500 ####[facility] [address] [place], [address] GFR/1.73 sq M.predicted among non-blacks MDRD (S/P/Bld) [Vol rate/Area] 25 mL/min/{1.73_m2} Low >60 [facility] Comment on above: Result Comment: mL/m in/1.73m2 CKD-EPI Creatinine Equation (2020) Performed By: #### L 100.0100, L500.2500 ####[facility] [address] [place], [address] Glucose [Mass/Vol] 164 mg/dL High 70-99 [facility] Comment on above: Performed By: #### L 100.0100, L500.2500 ####[facility] [address] [place], [address] Potassium [Moles/Vol] 5.8 mmol/L High 3.3-5.1 [facility] Comment on above: Result Comment: Hemo lysis present, Results??could be affected.?? Performed By: #### L 100.0100, L500.2500 ####[facility] [address] [place], [address] Sodium [Moles/Vol] 134 mmol/L Normal 133-145 [facility] Comment on above: Performed By: #### L 100.0100, L500.2500 ####[facility] [address] [place], [address] Urea nitrogen [Mass/Vol] 60 mg/dL High 4-19 [facility] Comment on above: Performed By: #### L 100.0100, L500.2500 ####[facility] [address] [place], [address] Basophil percentageOrdered B y: Ld Hayes on 04-05-2025 Basophils/100 WBC (Bld) 0.6 % 0-1 [facility] Bedside Glucoseon 04-05-2025 FINGERSTICK GLU 76 mg/dL Normal 74-106 [facility] Comment on above: Result Comment: KODY GEMENT OF PATIENT CARE PER NURSING PROTOCOL Performed By: #### L 501.080 ####[facility] [address] [place], [address] FINGERSTICK GLU 147 mg/dL High 74-106 [facility] Comment on above: Result Comment: KODY GEMENT OF PATIENT CARE PER NURSING PROTOCOL Performed By: #### L 501.080 ####[facility] [address] [place], [address] Bilirubin Test strip Ql (U)O rdered By: Nicola Madison on 04-05-2025 Bilirubin Ql (U) Negative Negative [facility] Blood Gases by CPSon 025 EMILIA TEST Positive Normal [facility] Comment on above: Performed By: #### L 9000.0800 ####[facility] [address] [place], [address] Base excess Calc (Bld) [Moles/Vol] 7 mmol/L High -2 to +2 [facility] Comment on above: Performed By: #### L 9000.0800 ####[facility] [address] [place], [address] Blood Gas Type ART Normal [facility] Comment on above: Performed By: #### L 9000.0800 ####[facility] [address] [place], [address] CO2 [Moles/Vol] 34 mmol/L Normal [facility] Comment on above: Performed By: #### L 9000.0800 ####[facility] [address] [place], [address] FI02 6.0 Normal [facility] Comment on above: Performed By: #### L 9000.0800 ####[facility] [facility] [address] [place], [address] HCO3 (Bld) [Moles/Vol] 32.4 mmol/L High 22-26 [facility] Comment on above: Performed By: #### L 8999.08 ####[facility] [address] [place], [address] Mode Not entered Normal [facility] Comment on above: Performed By: #### L 8999.08 ####[facility] [address] [place], [address] O2 Delivery Dev Cannula Normal [facility] Comment on above: Performed By: #### L 8999.08 ####[facility] [address] [place], [address] pCO2 57.1 mmHg High 35-45 [facility] Comment on above: Performed By: #### L 8999.08 ####[facility] [address] [place], [address] pH (Bld) 7.36 [pH] Normal 7.35-7.45 [facility] Comment on above: Performed By: #### L 8999.08 ####[facility] [address] [place], [address] PO2 71 mmHG Low 75-100 [facility] Comment on above: Performed By: #### L 0.08 ####[facility] [address] [place], [address] SITE R Radial Normal [facility] Comment on above: Performed By: #### L 8999.08 ####[facility] [address] [place], [address] SO2 93 Low 95-99 [facility] Comment on above: Performed By: #### L 0.0800 ####[facility] [address] [place], [address] Blood base excess determinat ionOrdered By: Nicola Madison on 04-05-2025 Base excess Calc (BldV) [Moles/Vol] 7 mmol/L High -2-2 [facility] Blood bicarbonate measuremen tOrdered By: Nicola Madison on 04-05-2025 HCO3 (Bld) [Moles/Vol] 32.4 mmol/L High 22-26 [facility] CBC W/Diff, Automatedon 03-20 Absolute Lymph 0.64 X10 3/uL Low 0.83-4.51 [facility] Comment on above: Performed By: #### L 100.0100, L500.2500 ####[facility] [address] [place], [address] Absolute Neut 7.0 X10 3/uL Normal 2.0-7.7 [facility] Comment on above: Performed By: #### L 100.0100, L500.2500 ####[facility] [address] [place], [address] Basophils/100 WBC (Bld) 0.6 % Normal 0-1 [facility] Comment on above: Performed By: #### L 100.0100, L500.2500 ####[facility] [address] [place], [address] Eosinophils/100 WBC (Bld) 1.0 % Normal 0-5 [facility] Comment on above: Performed By: #### L 100.0100, L500.2500 ####[facility] [address] [place], [address] Erythrocyte distribution width (RBC) [Ratio] 17.1 % High 11.6-14.6 [facility] Comment on above: Performed By: #### L 100.0100, L500.2500 ####[facility] [address] [place], [address] Hematocrit (Bld) [Volume fraction] 29.0 % Low 40-54 [facility] Comment on above: Performed By: #### L 100.0100, L500.2500 ####[facility] [address] [place], [address] Hemoglobin (Bld) [Mass/Vol] 8.9 g/dL Low 13.0-16.5 [facility] Comment on above: Performed By: #### L 100.0100, L500.2500 ####[facility] [address] [place], [address] IG% 0.700 Normal 0.0-0.9 [facility] Comment on above: Result Comment: IG% - Immature Granulocytes (promyelocytes, myelocytes andmetamyelocytes) > 1% indicates that a LEFT SHIFT is Present. Performed By: #### L 100.0100, L500.2500 ####[facility] [address] [place], [address] Lymphocytes/100 WBC (Bld) 7.3 % Low 19-41 [facility] Comment on above: Performed By: #### L 100.0100, L500.2500 ####[facility] [address] [place], [address] MCH (RBC) [Entitic mass] 27.2 pg Normal 27.0-32.0 [facility] Comment on above: Performed By: #### L 100.0100, L500.2500 ####[facility] [address] [place], [address] MCHC (RBC) [Mass/Vol] 30.7 g/dL Low 32-36 [facility] Comment on above: Performed By: #### L 100.0100, L500.2500 ####[facility] [address] [place], [address] MCV (RBC) [Entitic vol] 88.7 fL Normal 80-94 [facility] Comment on above: Performed By: #### L 100.0100, L500.2500 ####[facility] [address] [place], [address] Monocytes/100 WBC (Bld) 10.7 % High 0-10 [facility] Comment on above: Performed By: #### L 100.0100, L500.2500 ####[facility] [address] [place], [address] Neutrophils/100 WBC (Bld) 79.7 % High 47-70 [facility] Comment on above: Performed By: #### L 100.0100, L500.2500 ####[facility] [address] [place], [address] Nucleated RBC (Bld) [#/Vol] 0.2 10*3/uL Normal 0-5 [facility] Comment on above: Performed By: #### L 100.0100, L500.2500 ####[facility] [address] [place], [address] Platelet mean volume (Bld) [Entitic vol] 11.1 fL Normal 6.2-12.0 [facility] Comment on above: Performed By: #### L 100.0100, L500.2500 ####[facility] [address] [place], [address] Platelets (Bld) [#/Vol] 226 10*3/uL Normal 150-450 [facility] Comment on above: Performed By: #### L 100.0100, L500.2500 ####[facility] [address] [place], [address] RBC (Bld) [#/Vol] 3.27 10*6/uL Low 4.6-6.2 [facility] Comment on above: Performed By: #### L 100.0100, L500.2500 ####[facility] [address] [place], [address] RDW SD 55.5 fl High 35.1-43.9 [facility] Comment on above: Performed By: #### L 100.0100, L500.2500 ####[facility] [address] [place], [address] WBC (Bld) [#/Vol] 8.7 10*3/uL Normal 4.4-11.0 [facility] Comment on above: Performed By: #### L 100.0100, L500.2500 ####[facility] [address] [place], [address] Carbon dioxide, total [Moles /volume] in Central venous bloodOrdered By: Ld Hayes on 04-05-2025 CO2 [Moles/Vol] 26.7 mmol/L 21.0-32.0 [facility] Chest PA and Lateralon 04-05 Chest PA and Lateral Normal [facility] Chloride assayOrdered By: Sky Hayes on 04-05-2025 Chloride [Moles/Vol] 97 mmol/L Low 98-108 [facility] Emergency Department Summary on 04-05-2025 Emergency Department Summary Normal [facility] Eosinophil percentageOrdered By: Ld Hayes on 04-05-2025 Eosinophils/100 WBC (Bld) 1.0 % 0-5 [facility] Erythrocyte distribution wid th ratioOrdered By: Ld Hayes on 04-05-2025 Erythrocyte distribution width (RBC) [Ratio] 17.1 % High 11.6-14.6 [facility] Erythrocyte distribution wid th standard deviationOrdered By: Ld Hayes on 04-05-2025 Erythrocyte distribution width (RBC) [Ratio] 55.5 fl High 35.1-43.9 [facility] Glomerular filtration rate ( GFR) estimation/1.73 sq m using serum, plasma, or whole bOrdered By: Ld Hayes on 04-05-2025 GFR/1.73 sq M.predicted among non-blacks MDRD (S/P/Bld) [Vol rate/Area] 25 mL/min/{1.73_m2} Low >60 [facility] deOrdered By: Ld Abigail on 04-05-2025 Glucose [Mass/Vol] 147 mg/dL High 74-106 [facility] H AND P Exam - Hospitaliston 04-05-2025 H&P Exam - Hospitalist Normal [facility] Hematocrit Auto (Bld) [Volum e fraction]Ordered By: Ld Hayes on 04-05-2025 Hematocrit (Bld) [Volume fraction] 29.0 % Low 40-54 [facility] Hemoglobin measurementOrdere d By: Ld Abigail on 04-05-2025 Hemoglobin (Bld) [Mass/Vol] 8.9 g/dL Low 13.0-16.5 [facility] Immature granulocytes/100 WB C Auto (Bld)Ordered By: Ld Hayes on 04-05-2025 Immature granulocytes/100 WBC (Bld) 0.700 % 0.0-0.9 [facility] Influenza virus A and B and SARS-CoV-2 (COVID-19) and Respiratory syncytial virus RNAOrdered By: Ld Hayes on 04-05-2025 SARS-CoV-2 (COVID-19) RNA BRYAN+probe Ql (Unsp spec) [facility] Ketones Test strip Ql (U)Ord ered By: Nicola Madison on 04-05-2025 Ketones Ql (U) Negative Negative [facility] L501.4021on 04-05-2025 Trop T High Sen 64 ng/L Invalid Interpretation Code <=22 [facility] Comment on above: Result Comment: Crit ical Result(s) Called [facility] at: 1805 by:RIVERA??Results read back by same. Performed By: #### L 501.4021 ####[facility] [address] [place], [address] M100.678on 04-05-2025 M100.678 SARS-CoV-2 (COVID 19 ) Negative INFLUENZA A Negative INFLUENZA B Negative RSV PCR Negative Normal [facility] Comment on above: Performed By: #### M 100.678 ####[facility] [address] [place], [address] MCV (mean corpuscular volume ) determinationOrdered By: Ld Hayes on 04-05-2025 MCV (RBC) [Entitic vol] 88.7 fL 80-94 [facility] Magnesiumon 04-05-2025 Magnesium [Mass/Vol] 2.5 mg/dL High 1.5-2.2 [facility] Comment on above: Performed By: #### L 501.5200, L501.9520 ####[facility] [address] [place], [address] Magnesium measurement (mass/ volume)Ordered By: Nicola Madison on 04-05-2025 Magnesium (Unsp spec) [Mass/Vol] 2.5 mg/dL High 1.5-2.2 [facility] Mean corpuscular hemoglobin (MCH) determinationOrdered By: Ld Hayes on 04-05-2025 MCH (RBC) [Entitic mass] 27.2 pg 27.0-32.0 [facility] Measurement, pHOrdered By: Sarah Madison on 04-05-2025 pH (Unsp spec) 7.36 [pH] 7.35-7.45 [facility] Monocyte percentageOrdered B y: Ld Hayes on 04-05-2025 Monocytes/100 WBC (Bld) 10.7 % High 0-10 [facility] Mucus LM Ql (Urine sed)Order ed By: Nicola Madison on 04-05-2025 Mucus Ql (Urine sed) 0 SEEN /hpf [facility] Natriuretic peptide.B prohor girish N-Terminal [Mass/volume] in Serum or PlasmaOrdered By: Ld Hayes on 04-05-2025 Natriuretic peptide.B prohormone N-Terminal [Mass/Vol] 4003 pg/mL High <1800 [facility] Neutrophil percentageOrdered By: Ld Hayes on 04-05-2025 Neutrophils/100 WBC (Bld) 79.7 % High 47-70 [facility] Nitrite Test strip Ql (U)Ord ered By: Nicola Madison on 04-05-2025 Nitrite Ql (U) Negative Negative [facility] No Panel InformationOrdered By: Nicola Madison on 04-05-2025 ART [facility] R Radial [facility] Not entered [facility] Cannula [facility] Platelet countOrdered By: Sky Hayes on 04-05-2025 Platelets (Bld) [#/Vol] 226 10*3/uL 150-450 [facility] Potassium measurement (mass/ volume)Ordered By: Ld Hayes on 04-05-2025 Potassium (Unsp spec) [Mass/Vol] 5.8 mmol/L High 3.3-5.1 [facility] Pro- Brain NATRIURETIC PEPTI Adrienne 04-05-2025 Natriuretic peptide B (Bld) [Mass/Vol] 4003 pg/mL High <=1800 [facility] Comment on above: Result Comment: Hear t Failure Unlikely: < 300 pg/mLHeart Failure Likely< 50 Years: > 450 pg/mL50-75 Years: > 900 pg/mL>75 Years: > 1800 pg/mL Performed By: #### L 503.7505 ####[facility] [address] [place], [place], [address] Protein Test strip Ql (U)Ord ered By: Nicola Madison on 04-05-2025 Protein Ql (U) 100 mg/dl High Negative [facility] RBC Auto (Bld) [#/Vol]Ordere d By: Ld Hayes on 04-05-2025 RBC (Bld) [#/Vol] 3.27 10*6/uL Low 4.6-6.2 [facility] Serum creatinine measurement (mass/volume)Ordered By: Ld Hayes on 04-05-2025 Creatinine [Mass/Vol] 2.57 mg/dL High 0.70-1.20 [facility] Serum glucose measurement (m ass/volume)Ordered By: Ld Hayes on 04-05-2025 Glucose [Mass/Vol] 164 mg/dL High 70-99 [facility] Serum or plasma calcium [place] urement (mass/volume)Ordered By: Ld Hayes on 04-05-2025 Calcium [Mass/Vol] 8.8 mg/dL 7.6-11.0 [facility] Serum or plasma urea nitroge n measurement (mass/volume)Ordered By: Ld Hayes on 04-05-2025 Urea nitrogen [Mass/Vol] 60 mg/dL High 4-19 [facility] Sodium levelOrdered By: Ld Hayes on 04-05-2025 Sodium [Moles/Vol] 134 mmol/L 133-145 [facility] Squamous epithelial cells de tection in urine sediment by light microscopyOrdered By: Nicola Madison on 04-05-2025 Epithelial cells.squamous LM Ql (Urine sed) 0-5 SEEN /hpf 0-5 [facility] TSH DL <= 0.005 mIU/L QnOrde red By: Nicola Madison on 04-05-2025 TSH Qn 3.830 uIU/mL 0.300-4.20 0 [facility] Thyroid Stim Hormone (TSH)on 04-05-2025 TSH 3.830 uIU/mL Normal 0.300-4.20 0 [facility] Comment on above: Performed By: #### L 501.5200, L501.9520 ####[facility] [address] [facility] [id number] Total carbon dioxide measure mentOrdered By: Nicola Madison on 04-05-2025 CO2 [Moles/Vol] 34 mmol/L [facility] Troponin T HS 2 HRon 025 Trop T High Sen 62 ng/L Invalid Interpretation Code <=22 [facility] Comment on above: Result Comment: Crit ical Result(s) Called [facility] at:2002 by:RIVERA??Results read back by same. Performed By: #### L 499.0042 ####[facility] [address] [place], [place], [address] Troponin T HS 4 HRon 025 Trop T High Sen 60 ng/L Invalid Interpretation Code <=22 [facility] Comment on above: Result Comment: Crit ical Result(s) Called [facility] at: 2137 by:RIVERA??Results read back by same. Performed By: #### L 499.0043 ####[facility] [address] [place], [place], [id number] Troponin T.cardiac [Mass/vol ume] in Serum or Plasma by High sensitivity methodOrdered By: Ld Hayes on 04-05-2025 Troponin T.cardiac High sensitivity method [Mass/Vol] 60 ng/L High <22 [facility] Troponin T.cardiac High sensitivity method [Mass/Vol] 62 ng/L High <22 [facility] Troponin T.cardiac High sensitivity method [Mass/Vol] 64 ng/L High <22 [facility] Urinalysis, Completeon 04-05 BACTERIA 2+ /hpf Normal None Seen [facility] Comment on above: Order Comment: CLEAN CATCH Performed By: #### L 400.0001 ####[facility] [address] [place], [address] EPI,SQUAMOUS 0-5 SEEN Normal 0-5 [facility] Comment on above: Order Comment: CLEAN CATCH Performed By: #### L 400.0001 ####[facility] [address] [facility] [address] RBC 0-5 SEEN Normal 0-5 [facility] Comment on above: Order Comment: CLEAN CATCH Performed By: #### L 400.0001 ####[facility] [address] [facility] [address] WBC 5-10 SEEN Normal 0-5 [facility] Comment on above: Order Comment: CLEAN CATCH Performed By: #### L 400.0001 ####[facility] [address] [facility] [address] Mucus Ql (Urine sed) 0 SEEN Normal [facility] Comment on above: Order Comment: CLEAN CATCH Performed By: #### L 400.0001 ####[facility] [address] [facility] [address] Urine clarityOrdered By: Jacob Madison on 04-05-2025 Clarity (U) Clear Clear [facility] Urine color determinationOrd ered By: Nicola Madison on 04-05-2025 Color (U) Yellow Yellow [facility] Urine glucose detectionOrder ed By: Nicola Madison on 04-05-2025 Glucose Ql (U) Normal mg/dl Normal [facility] Urine leukocyte esterase det ection by dipstickOrdered By: Nicola Madison on 04-05-2025 Leukocyte esterase Test strip Ql (U) 500 /ul High Negative [facility] Urine pHOrdered By: Nicola stack on 04-05-2025 pH (U) 5.0 [pH] 5.0 - 8.0 [facility] Urine sediment bacteria coun t by microscopy (number/high power field)Ordered By: Nicola Madison on 04-05-2025 Bacteria LM.HPF (Urine sed) [#/Area] 2 /[HPF] None Seen [facility] Urine specific gravity measu rementOrdered By: Nicola Madison on 04-05-2025 Specific gravity (U) [Rel density] 1.015 1.002-1.03 0 [facility] Urine urobilinogen measureme ntOrdered By: Nicola Madison on 04-05-2025 Urobilinogen Ql (U) Normal mg/dl Normal [facility] White blood cell (WBC) count Ordered By: Ld Hayes on 04-05-2025 WBC (Bld) [#/Vol] 8.7 10*3/uL 4.4-11.0 [facility] White blood cell countOrdere d By: Nicola Madison on 04-05-2025 White blood cell count 5-10 SEEN /hpf 0-5 [facility] Absolute lymphocyte countOrd ered By: Leslie Arriaga on 04-02-2025 Lymphocytes Auto (Unsp spec) [#/Vol] 0.87 10*3/uL 0.83-4.51 [facility] Absolute neutrophil countOrd ered By: Leslie Arriaga on 04-02-2025 Neutrophils (Bld) [#/Vol] 6.9 10*3/uL 2.0-7.7 [facility] Anion gap in Serum or Plasma Ordered By: Leslie Arriaga on 04-02-2025 Anion gap [Moles/Vol] 10 mmol/L 5-15 [facility] Automated lymphocyte count a s percentage of total leukocytesOrdered By: Leslie Arriaga on 04-02-2025 Lymphocytes/100 WBC Auto (Unsp spec) 10.0 % Low 19-41 [facility] BUN/creatinine ratioOrdered By: Leslie Arriaga on 04-02-2025 Urea nitrogen/Creatinine [Mass ratio] 16.4 mg/mg - [facility] Basic Metabolic Profile (BMP )on 04-02-2025 BUN/CRE 16.4 RATIO Normal - [facility] Comment on above: Order Comment: Comme nts: [facility] Performed By: #### L 100.0100, L503.7505, L500.2500 ####[facility] [address] [place], [address] Calcium [Mass/Vol] 9.2 mg/dL Normal 7.6-11.0 [facility] Comment on above: Order Comment: Comme nts: [facility] Health to [facility] Performed By: #### L 100.0100, L503.7505, L500.2500 ####[facility] [address] [place], [address] Chloride [Moles/Vol] 99 mmol/L Normal 98-108 [facility] Comment on above: Order Comment: Comme nts: [facility] Health to [facility] Performed By: #### L 100.0100, L503.7505, L500.2500 ####[facility] [address] [place], [address] CO2 [Moles/Vol] 27.8 mmol/L Normal 21.0-32.0 [facility] Comment on above: Order Comment: Comme nts: [facility] to [facility] Performed By: #### L 100.0100, L503.7505, L500.2500 ####[facility] [address] [place], [address] Creatinine [Mass/Vol] 2.13 mg/dL High 0.70-1.20 [facility] Comment on above: Order Comment: Comme nts: [facility] Health to [facility]Home [facility] to [facility] Performed By: #### L 100.0100, L503.7505, L500.2500 ####[facility] [address] [place], [address] GAP 10 Normal 5-15 [facility] Comment on above: Order Comment: Comme nts: [facility] Health to [facility]Home [facility] to [facility] Performed By: #### L 100.0100, L503.7505, L500.2500 ####[facility] [address] [place], [address] GFR/1.73 sq M.predicted among non-blacks MDRD (S/P/Bld) [Vol rate/Area] 31 mL/min/{1.73_m2} Low >60 [facility] Comment on above: Order Comment: Comme nts: [facility] to [facility] Result Comment: mL/m in/1.73m2 CKD-EPI Creatinine Equation (2020) Performed By: #### L 100.0100, L503.7505, L500.2500 ####[facility] [address] [place], [address] Glucose [Mass/Vol] 185 mg/dL High 70-99 [facility] Comment on above: Order Comment: Comme nts: Home Health to [facility]Home [facility] to [facility] Performed By: #### L 100.0100, L503.7505, L500.2500 ####[facility] [address] [place], [address] Potassium [Moles/Vol] 5.6 mmol/L High 3.3-5.1 [facility] Comment on above: Order Comment: Comme nts: Home Health to Draw [facility]Home [facility] to [facility] Tomorrow Performed By: #### L 100.0100, L503.7505, L500.2500 ####[facility] [address] [place], [address] Sodium [Moles/Vol] 137 mmol/L Normal 133-145 [facility] Comment on above: Order Comment: Comme nts: Home Health to Draw [facility]Home [facility] to [facility] Tomorrow Performed By: #### L 100.0100, L503.7505, L500.2500 ####[facility] [address] [place], [address] Urea nitrogen [Mass/Vol] 35 mg/dL High 4-19 [facility] Comment on above: Order Comment: Comme nts: Home Health to Draw [facility]Home [facility] to [facility] Tomorrow Performed By: #### L 100.0100, L503.7505, L500.2500 ####[facility] [address] [place], [address] Basophil percentageOrdered B y: Leslie Arriaga on 04-02-2025 Basophils/100 WBC (Bld) 0.3 % 0-1 [facility] CBC W/Diff, Automatedon 03-20 Absolute Lymph 0.87 X10 3/uL Normal 0.83-4.51 [facility] Comment on above: Order Comment: Comme nts: Home Health to Draw Tomorrow Performed By: #### L 100.0100, L503.7505, L500.2500 ####[facility] [address] [place], [address] Absolute Neut 6.9 X10 3/uL Normal 2.0-7.7 [facility] Comment on above: Order Comment: Comme nts: Home Health to [facility] Performed By: #### L 100.0100, L503.7505, L500.2500 ####[facility] [address] [place], [address] Basophils/100 WBC (Bld) 0.3 % Normal 0-1 [facility] Comment on above: Order Comment: Comme nts: Home Health to Draw Tomorrow Performed By: #### L 100.0100, L503.7505, L500.2500 ####[facility] [address] [place], [address] Eosinophils/100 WBC (Bld) 0.8 % Normal 0-5 [facility] Comment on above: Order Comment: Comme nts: Home Health to Draw Tomorrow Performed By: #### L 100.0100, L503.7505, L500.2500 ####[facility] [address] [place], [address] Erythrocyte distribution width (RBC) [Ratio] 17.1 % High 11.6-14.6 [facility] Comment on above: Order Comment: Comme nts: Home Health to [facility] Tomorrow Performed By: #### L 100.0100, L503.7505, L500.2500 ####[facility] [address] [place], [address] Hematocrit (Bld) [Volume fraction] 30.6 % Low 40-54 [facility] Comment on above: Order Comment: Comme nts: Home Health to [facility] Tomorrow Performed By: #### L 100.0100, L503.7505, L500.2500 ####[facility] [address] [place], [address] Hemoglobin (Bld) [Mass/Vol] 9.2 g/dL Low 13.0-16.5 [facility] Comment on above: Order Comment: Comme nts: Home Health to Draw Tomorrow Performed By: #### L 100.0100, L503.7505, L500.2500 ####[facility] [address] [place], [address] IG% 0.600 Normal 0.0-0.9 [facility] Comment on above: Order Comment: Comme nts: Home Health to [facility] Result Comment: IG% - Immature Granulocytes (promyelocytes, myelocytes andmetamyelocytes) > 1% indicates that a LEFT SHIFT is Present. Performed By: #### L 100.0100, L503.7505, L500.2500 ####[facility] [address] [place], [address] Lymphocytes/100 WBC (Bld) 10.0 % Low 19-41 [facility] Comment on above: Order Comment: Comme nts: Home Health to Draw Tomorrow Performed By: #### L 100.0100, L503.7505, L500.2500 ####[facility] [address] [place], [address] MCH (RBC) [Entitic mass] 26.8 pg Low 27.0-32.0 [facility] Comment on above: Order Comment: Comme nts: Home Health to [facility] Tomorrow Performed By: #### L 100.0100, L503.7505, L500.2500 ####[facility] [address] [place], [address] MCHC (RBC) [Mass/Vol] 30.1 g/dL Low 32-36 [facility] Comment on above: Order Comment: Comme nts: Home Health to [facility] Performed By: #### L 100.0100, L503.7505, L500.2500 ####[facility] [address] [place], [address] MCV (RBC) [Entitic vol] 89.2 fL Normal 80-94 [facility] Comment on above: Order Comment: Comme nts: Home Health to [facility] Tomorrow Performed By: #### L 100.0100, L503.7505, L500.2500 ####[facility] [address] [place], [address] Monocytes/100 WBC (Bld) 8.9 % Normal 0-10 [facility] Comment on above: Order Comment: Comme nts: Home Health to [facility] Tomorrow Performed By: #### L 100.0100, L503.7505, L500.2500 ####[facility] [address] [place], [address] Neutrophils/100 WBC (Bld) 79.4 % High 47-70 [facility] Comment on above: Order Comment: Comme nts: Home Health to [facility] Tomorrow Performed By: #### L 100.0100, L503.7505, L500.2500 ####[facility] [address] [place], [address] Nucleated RBC (Bld) [#/Vol] 0 10*3/uL Normal 0-5 [facility] Comment on above: Order Comment: Comme nts: Home Health to [facility] Tomorrow Performed By: #### L 100.0100, L503.7505, L500.2500 ####[facility] [address] [place], [address] Platelet mean volume (Bld) [Entitic vol] 10.6 fL Normal 6.2-12.0 [facility] Comment on above: Order Comment: Comme nts: Home Health to [facility] Performed By: #### L 100.0100, L503.7505, L500.2500 ####[facility] [address] [place], [address] Platelets (Bld) [#/Vol] 210 10*3/uL Normal 150-450 [facility] Comment on above: Order Comment: Comme nts: [facility] to [facility] Performed By: #### L 100.0100, L503.7505, L500.2500 ####[facility] [address] [place], [address] RBC (Bld) [#/Vol] 3.43 10*6/uL Low 4.6-6.2 [facility] Comment on above: Order Comment: Comme nts: Home Health to [facility] Tomorrow Performed By: #### L 100.0100, L503.7505, L500.2500 ####[facility] [address] [place], [address] RDW SD 55.3 fl High 35.1-43.9 [facility] Comment on above: Order Comment: Comme nts: Home Health to [facility] Tomorrow Performed By: #### L 100.0100, L503.7505, L500.2500 ####[facility] [address] [place], [address] WBC (Bld) [#/Vol] 8.7 10*3/uL Normal 4.4-11.0 [facility] Comment on above: Order Comment: Comme nts: Home Health to [facility] Tomorrow Performed By: #### L 100.0100, L503.7505, L500.2500 ####[facility] [facility] [address] [facility] [place], [address] Carbon dioxide, total [Moles /volume] in Central venous bloodOrdered By: Leslie Arriaga on 04-02-2025 CO2 [Moles/Vol] 27.8 mmol/L 21.0-32.0 [facility] Chloride assayOrdered By: Linsey Arriaga on 04-02-2025 Chloride [Moles/Vol] 99 mmol/L 98-108 [facility] Eosinophil percentageOrdered By: Leslie Arriaga on 04-02-2025 Eosinophils/100 WBC (Bld) 0.8 % 0-5 [facility] Erythrocyte distribution wid th ratioOrdered By: Leslie Arriaga on 04-02-2025 Erythrocyte distribution width (RBC) [Ratio] 17.1 % High 11.6-14.6 [facility] Erythrocyte distribution wid th standard deviationOrdered By: Leslie Arriaga on 04-02-2025 Erythrocyte distribution width (RBC) [Ratio] 55.3 fl High 35.1-43.9 [facility] Glomerular filtration rate ( GFR) estimation/1.73 sq m using serum, plasma, or whole bOrdered By: Leslie Arriaga on 04-02-2025 GFR/1.73 sq M.predicted among non-blacks MDRD (S/P/Bld) [Vol rate/Area] 31 mL/min/{1.73_m2} Low >60 [facility] Comment on above: mL/min/1.73m2 CKD-EP I Creatinine Equation (2020) Hematocrit Auto (Bld) [Volum e fraction]Ordered By: Leslie Arriaga on 04-02-2025 Hematocrit (Bld) [Volume fraction] 30.6 % Low 40-54 [facility] Hemoglobin measurementOrdere d By: Leslie Arriaga on 04-02-2025 Hemoglobin (Bld) [Mass/Vol] 9.2 g/dL Low 13.0-16.5 [facility] Immature granulocytes/100 WB C Auto (Bld)Ordered By: Leslie Arriaga on 04-02-2025 Immature granulocytes/100 WBC (Bld) 0.600 % 0.0-0.9 [facility] Comment on above: IG% - Immature Granu locytes (promyelocytes, myelocytes and metamyelocytes) > 1% indicates that a LEFT SHIFT is Present. MCV (mean corpuscular volume ) determinationOrdered By: Leslie Arriaga on 04-02-2025 MCV (RBC) [Entitic vol] 89.2 fL 80-94 [facility] Mean corpuscular hemoglobin (MCH) determinationOrdered By: Leslie Arriaga on 04-02-2025 MCH (RBC) [Entitic mass] 26.8 pg Low 27.0-32.0 [facility] Mean corpuscular hemoglobin concentration (MCHC) determinationOrdered By: Leslie Arriaga on 04-02-2025 MCHC (RBC) [Mass/Vol] 30.1 g/dL Low 32-36 [facility] Mean platelet volume determi nationOrdered By: Leslie Arriaga on 04-02-2025 Platelet mean volume (Bld) [Entitic vol] 10.6 fL 6.2-12.0 [facility] Monocyte percentageOrdered B y: Leslie Arriaga on 04-02-2025 Monocytes/100 WBC (Bld) 8.9 % 0-10 [facility] Natriuretic peptide.B prohor girish N-Terminal [Mass/volume] in Serum or PlasmaOrdered By: Leslie Arriaga on 08-14-2025 Natriuretic peptide.B prohormone N-Terminal [Mass/Vol] 2526 pg/mL High <1800 [facility] Comment on above: Heart Failure Unlike ly: < 300 pg/mLHeart Failure Likely< 50 Years: > 450 pg/mL50-75 Years: > 900 pg/mL>75 Years: > 1800 pg/mL Neutrophil percentageOrdered By: Leslie Arriaga on 04-02-2025 Neutrophils/100 WBC (Bld) 79.4 % High 47-70 [facility] Nucleated red blood cell per centageOrdered By: Leslie Arriaga on 04-02-2025 Nucleated RBC/100 WBC (Bld) [Ratio] 0 % 0-5 [facility] Platelet countOrdered By: Linsey Arriaga on 04-02-2025 Platelets (Bld) [#/Vol] 210 10*3/uL 150-450 [facility] Potassium measurement (mass/ volume)Ordered By: Leslie Arriaga on 04-02-2025 Potassium (Unsp spec) [Mass/Vol] 5.6 mmol/L High 3.3-5.1 [facility] Pro- Brain NATRIURETIC PEPTI Adrienne 04-02-2025 Natriuretic peptide B (Bld) [Mass/Vol] 2526 pg/mL High <=1800 [facility] Comment on above: Order Comment: Comme nts: Home Health to Draw Tomorrow Result Comment: Hear t Failure Unlikely: < 300 pg/mLHeart Failure Likely< 50 Years: > 450 pg/mL50-75 Years: > 900 pg/mL>75 Years: > 1800 pg/mL Performed By: #### L 100.0100, L503.7505, L500.2500 ####[facility] [address] [place], [address] RBC Auto (Bld) [#/Vol]Ordere d By: Leslie Arriaga on 04-02-2025 RBC (Bld) [#/Vol] 3.43 10*6/uL Low 4.6-6.2 [facility] Serum creatinine measurement (mass/volume)Ordered By: Leslie Arriaga on 04-02-2025 Creatinine [Mass/Vol] 2.13 mg/dL High 0.70-1.20 [facility] Serum glucose measurement (m ass/volume)Ordered By: Leslie Arriaga on 04-02-2025 Glucose [Mass/Vol] 185 mg/dL High 70-99 [facility] Serum or plasma calcium kingsley urement (mass/volume)Ordered By: Leslie Arriaga on 04-02-2025 Calcium [Mass/Vol] 9.2 mg/dL 7.6-11.0 [facility] Serum or plasma urea nitroge n measurement (mass/volume)Ordered By: Leslie Arriaga on 04-02-2025 Urea nitrogen [Mass/Vol] 35 mg/dL High 4-19 [facility] Sodium levelOrdered By: Brian Arriaga on 04-02-2025 Sodium [Moles/Vol] 137 mmol/L 133-145 [facility] White blood cell (WBC) count Ordered By: Leslie Arriaga on 04-02-2025 WBC (Bld) [#/Vol] 8.7 10*3/uL 4.4-11.0 [facility] Absolute lymphocyte countOrd ered By: Tonio Fajardo on 03-18-2025 Lymphocytes Auto (Unsp spec) [#/Vol] 0.88 10*3/uL 0.83-4.51 [facility] Absolute neutrophil countOrd ered By: Tonio Fajardo on 03-18-2025 Neutrophils (Bld) [#/Vol] 5.9 10*3/uL 2.0-7.7 [facility] Anion gap in Serum or Plasma Ordered By: Tonio Fajardo on 03-18-2025 Anion gap [Moles/Vol] 11 mmol/L 5- [facility] Automated lymphocyte count a s percentage of total leukocytesOrdered By: Tonio Fajardo on 03-18-2025 Lymphocytes/100 WBC Auto (Unsp spec) 11.2 % Low 19-41 [facility] BUN/creatinine ratioOrdered By: Tonio Fajardo on 03-18-2025 Urea nitrogen/Creatinine [Mass ratio] 14.8 mg/mg - [facility] Basic Metabolic Profile (BMP )on 03-18-2025 BUN/CRE 14.8 RATIO Normal 06-08 [facility] Comment on above: Performed By: #### L 500.2500, L100.0100 ####[facility] [address] [place], [address] Calcium [Mass/Vol] 9.5 mg/dL Normal 7.6-11.0 [facility] Comment on above: Performed By: #### L 500.2500, L100.0100 ####[facility] [address] [place], [address] Chloride [Moles/Vol] 99 mmol/L Normal 98-108 [facility] Comment on above: Performed By: #### L 500.2500, L100.0100 ####[facility] [address] [place], [address] CO2 [Moles/Vol] 26.7 mmol/L Normal 21.0-32.0 [facility] Comment on above: Performed By: #### L 500.2500, L100.0100 ####[facility] [address] [place], [address] Creatinine [Mass/Vol] 1.59 mg/dL High 0.70-1.20 [facility] Comment on above: Performed By: #### L 500.2500, L100.0100 ####[facility] [address] [place], [address] GAP 11 Normal 5-15 [facility] Comment on above: Performed By: #### L 500.2500, L100.0100 ####[facility] [address] [place], [address] GFR/1.73 sq M.predicted among non-blacks MDRD (S/P/Bld) [Vol rate/Area] 44 mL/min/{1.73_m2} Low >60 [facility] Comment on above: Result Comment: mL/m in/1.73m2 CKD-EPI Creatinine Equation (2020) Performed By: #### L 500.2500, L100.0100 ####[facility] [address] [place], [address] Glucose [Mass/Vol] 223 mg/dL High 70-99 [facility] Comment on above: Performed By: #### L 500.2500, L100.0100 ####[facility] [address] [place], [address] Potassium [Moles/Vol] 5.2 mmol/L High 3.3-5.1 [facility] Comment on above: Performed By: #### L 500.2500, L100.0100 ####[facility] [address] [place], [address] Sodium [Moles/Vol] 137 mmol/L Normal 133-145 [facility] Comment on above: Performed By: #### L 500.2500, L100.0100 ####[facility] [address] [place], [address] Urea nitrogen [Mass/Vol] 24 mg/dL High 4-19 [facility] Comment on above: Performed By: #### L 500.2500, L100.0100 ####[facility] [address] [place], [address] Basophil percentageOrdered B y: Tonio Fajardo on 03-18-2025 Basophils/100 WBC (Bld) 0.5 % 0-1 [facility] CBC W/Diff, Automatedon 02-19 Absolute Lymph 0.88 X10 3/uL Normal 0.83-4.51 [facility] Comment on above: Performed By: #### L 500.2500, L100.0100 ####[facility] [address] [place], [address] Absolute Neut 5.9 X10 3/uL Normal 2.0-7.7 [facility] Comment on above: Performed By: #### L 500.2500, L100.0100 ####[facility] [address] [place], [address] Basophils/100 WBC (Bld) 0.5 % Normal 0-1 [facility] Comment on above: Performed By: #### L 500.2500, L100.0100 ####[facility] [address] [place], [address] Eosinophils/100 WBC (Bld) 3.1 % Normal 0-5 [facility] Comment on above: Performed By: #### L 500.2500, L100.0100 ####[facility] [address] [place], [address] Erythrocyte distribution width (RBC) [Ratio] 16.4 % High 11.6-14.6 [facility] Comment on above: Performed By: #### L 500.2500, L100.0100 ####[facility] [address] [place], [address] Hematocrit (Bld) [Volume fraction] 32.6 % Low 40-54 [facility] Comment on above: Performed By: #### L 500.2500, L100.0100 ####[facility] [address] [place], [address] Hemoglobin (Bld) [Mass/Vol] 9.7 g/dL Low 13.0-16.5 [facility] Comment on above: Performed By: #### L 500.2500, L100.0100 ####[facility] [address] [place], [address] IG% 1.100 High 0.0-0.9 [facility] Comment on above: Result Comment: IG% - Immature Granulocytes (promyelocytes, myelocytes andmetamyelocytes) > 1% indicates that a LEFT SHIFT is Present. Performed By: #### L 500.2500, L100.0100 ####[facility] [address] [place], [address] Lymphocytes/100 WBC (Bld) 11.2 % Low 19-41 [facility] Comment on above: Performed By: #### L 500.2500, L100.0100 ####[facility] [address] [place], [address] MCH (RBC) [Entitic mass] 26.8 pg Low 27.0-32.0 [facility] Comment on above: Performed By: #### L 500.2500, L100.0100 ####[facility] [address] [place], [address] MCHC (RBC) [Mass/Vol] 29.8 g/dL Low 32-36 [facility] Comment on above: Performed By: #### L 500.2500, L100.0100 ####[facility] [address] [place], [address] MCV (RBC) [Entitic vol] 90.1 fL Normal 80-94 [facility] Comment on above: Performed By: #### L 500.2500, L100.0100 ####[facility] [address] [place], [address] Monocytes/100 WBC (Bld) 9.4 % Normal 0-10 [facility] Comment on above: Performed By: #### L 500.2500, L100.0100 ####[facility] [address] [place], [address] Neutrophils/100 WBC (Bld) 74.7 % High 47-70 [facility] Comment on above: Performed By: #### L 500.2500, L100.0100 ####[facility] [address] [place], [address] Nucleated RBC (Bld) [#/Vol] 0 10*3/uL Normal 0-5 [facility] Comment on above: Performed By: #### L 500.2500, L100.0100 ####[facility] [address] [place], [address] Platelet mean volume (Bld) [Entitic vol] 10.4 fL Normal 6.2-12.0 [facility] Comment on above: Performed By: #### L 500.2500, L100.0100 ####[facility] [address] [place], [address] Platelets (Bld) [#/Vol] 252 10*3/uL Normal 150-450 [facility] Comment on above: Performed By: #### L 500.2500, L100.0100 ####[facility] [address] [place], [address] RBC (Bld) [#/Vol] 3.62 10*6/uL Low 4.6-6.2 [facility] Comment on above: Performed By: #### L 500.2500, L100.0100 ####[facility] [address] [place], [address] RDW SD 53.8 fl High 35.1-43.9 [facility] Comment on above: Performed By: #### L 500.2500, L100.0100 ####[facility] [address] [place], [address] WBC (Bld) [#/Vol] 7.9 10*3/uL Normal 4.4-11.0 [facility] Comment on above: Performed By: #### L 500.2500, L100.0100 ####[facility] [address] [place], [address] Carbon dioxide, total [Moles /volume] in Central venous bloodOrdered By: Tonio Fajardo on 03-18-2025 CO2 [Moles/Vol] 26.7 mmol/L 21.0-32.0 [facility] Chloride assayOrdered By: Min Fajardo on 03-18-2025 Chloride [Moles/Vol] 99 mmol/L 98-108 [facility] Eosinophil percentageOrdered By: Tonio Fajardo on 03-18-2025 Eosinophils/100 WBC (Bld) 3.1 % 0-5 [facility] Erythrocyte distribution wid th ratioOrdered By: Tonio Fajardo on 03-18-2025 Erythrocyte distribution width (RBC) [Ratio] 16.4 % High 11.6-14.6 [facility] Erythrocyte distribution wid th standard deviationOrdered By: oTnio Fajardo on 03-18-2025 Erythrocyte distribution width (RBC) [Ratio] 53.8 fl High 35.1-43.9 [facility] Glomerular filtration rate ( GFR) estimation/1.73 sq m using serum, plasma, or whole bOrdered By: Tonio Fajardo on 03-18-2025 GFR/1.73 sq M.predicted among non-blacks MDRD (S/P/Bld) [Vol rate/Area] 44 mL/min/{1.73_m2} Low >60 [facility] Comment on above: mL/min/1.73m2 CKD-EP I Creatinine Equation (2020) Hematocrit Auto (Bld) [Volum e fraction]Ordered By: Tonio Fajardo on 03-18-2025 Hematocrit (Bld) [Volume fraction] 32.6 % Low 40-54 [facility] Hemoglobin measurementOrdere d By: Tonio Fajardo on 03-18-2025 Hemoglobin (Bld) [Mass/Vol] 9.7 g/dL Low 13.0-16.5 [facility] Immature granulocytes/100 WB C Auto (Bld)Ordered By: Tonio Fajardo on 03-18-2025 Immature granulocytes/100 WBC (Bld) 1.100 % High 0.0-0.9 [facility] Comment on above: IG% - Immature Granu locytes (promyelocytes, myelocytes and metamyelocytes) > 1% indicates that a LEFT SHIFT is Present. MCV (mean corpuscular volume ) determinationOrdered By: Tonio Fajardo on 03-18-2025 MCV (RBC) [Entitic vol] 90.1 fL 80-94 [facility] Mean corpuscular hemoglobin (MCH) determinationOrdered By: Tonio Fajardo on 03-18-2025 MCH (RBC) [Entitic mass] 26.8 pg Low 27.0-32.0 [facility] Mean corpuscular hemoglobin concentration (MCHC) determinationOrdered By: Tonio Fajardo on 03-18-2025 MCHC (RBC) [Mass/Vol] 29.8 g/dL Low 32-36 [facility] Mean platelet volume determi nationOrdered By: Tonio Fajardo on 03-18-2025 Platelet mean volume (Bld) [Entitic vol] 10.4 fL 6.2-12.0 [facility] Monocyte percentageOrdered B y: Tonio Fajardo on 03-18-2025 Monocytes/100 WBC (Bld) 9.4 % 0-10 [facility] Neutrophil percentageOrdered By: Tonio Fajardo on 03-18-2025 Neutrophils/100 WBC (Bld) 74.7 % High 47-70 [facility] Nucleated red blood cell per centageOrdered By: Tonio Fajardo on 03-18-2025 Nucleated RBC/100 WBC (Bld) [Ratio] 0 % 0-5 [facility] Platelet countOrdered By: Min Fajardo on 03-18-2025 Platelets (Bld) [#/Vol] 252 10*3/uL 150-450 [facility] Potassium measurement (mass/ volume)Ordered By: Tonio Fajardo on 03-18-2025 Potassium (Unsp spec) [Mass/Vol] 5.2 mmol/L High 3.3-5.1 [facility] RBC Auto (Bld) [#/Vol]Ordere d By: Tonio Fajardo on 03-18-2025 RBC (Bld) [#/Vol] 3.62 10*6/uL Low 4.6-6.2 [facility] Serum creatinine measurement (mass/volume)Ordered By: Tonio Fajardo on 03-18-2025 Creatinine [Mass/Vol] 1.59 mg/dL High 0.70-1.20 [facility] Serum glucose measurement (m ass/volume)Ordered By: Tonio Fajardo on 03-18-2025 Glucose [Mass/Vol] 223 mg/dL High 70-99 [facility] Serum or plasma calcium kingsley urement (mass/volume)Ordered By: Tonio Fajardo on 03-18-2025 Calcium [Mass/Vol] 9.5 mg/dL 7.6-11.0 [facility] Serum or plasma urea nitroge n measurement (mass/volume)Ordered By: Tonio Fajardo on 03-18-2025 Urea nitrogen [Mass/Vol] 24 mg/dL High - [facility] Sodium levelOrdered By: Tonio Fajardo on 03-18-2025 Sodium [Moles/Vol] 137 mmol/L 133-145 [facility] White blood cell (WBC) count Ordered By: Tonio Fajardo on 03-18-2025 WBC (Bld) [#/Vol] 7.9 10*3/uL 4.4-11.0 [facility] Cardiology Visit Reporton Cardiology Visit Report Normal [facility] Emergency Department Summary on 03-15-2025 Emergency Department Summary Normal [facility] Basic Metabolic Profile (BMP )on 03-11-2025 BUN Normal - [facility] Comment on above: Result Comment: Canc elled via OM: Order cancelled - Patient discharged Performed By: #### L 500.2500, L100.0100 ####[facility] [address] [place], [address] BUN/CRE Normal 10-20 [facility] Comment on above: Result Comment: Canc elled via OM: Order cancelled - Patient discharged Performed By: #### L 500.2500, L100.0100 ####[facility] [address] [place], [address] Calcium Normal 7.6-11.0 [facility] Comment on above: Result Comment: Canc elled via OM: Order cancelled - Patient discharged Performed By: #### L 500.2500, L100.0100 ####[facility] [address] [place], [address] CL Normal 98-108 [facility] Comment on above: Result Comment: Canc elled via OM: Order cancelled - Patient discharged Performed By: #### L 500.2500, L100.0100 ####[facility] [address] [place], [address] CO2 Normal 21.0-32.0 [facility] Comment on above: Result Comment: Canc elled via OM: Order cancelled - Patient discharged Performed By: #### L 500.2500, L100.0100 ####[facility] [address] [place], [address] CREAT,SERUM Normal 0.70-1.20 [facility] Comment on above: Result Comment: Canc elled via OM: Order cancelled - Patient discharged Performed By: #### L 500.2500, L100.0100 ####[facility] [address] [place], [address] eGFR Normal >60 [facility] Comment on above: Result Comment: Canc elled via OM: Order cancelled - Patient discharged Performed By: #### L 500.2500, L100.0100 ####[facility] [address] [place], [address] GAP Normal 5-15 [facility] Comment on above: Result Comment: Canc elled via OM: Order cancelled - Patient discharged Performed By: #### L 500.2500, L100.0100 ####[facility] [address] [place], [address] GLU Normal 70-99 [facility] Comment on above: Result Comment: Canc elled via OM: Order cancelled - Patient discharged Performed By: #### L 500.2500, L100.0100 ####[facility] [address] [place], [address] Potassium Normal 3.3-5.1 [facility] Comment on above: Result Comment: Canc elled via OM: Order cancelled - Patient discharged Performed By: #### L 500.2500, L100.0100 ####[facility] [address] [place], [address] Basic Metabolic Profile (BMP) Normal 133-145 [facility] Comment on above: Result Comment: Canc elled via OM: Order cancelled - Patient discharged Performed By: #### L 500.2500, L100.0100 ####[facility] [address] [place], [address] CBC W/Diff, Automatedon 07-2 Absolute Neut Normal 2.0-7.7 [facility] Comment on above: Result Comment: Canc elled via OM: Order cancelled - Patient discharged Performed By: #### L 500.2500, L100.0100 ####[facility] [address] [place], [address] HCT Normal 40-54 [facility] Comment on above: Result Comment: Canc elled via OM: Order cancelled - Patient discharged Performed By: #### L 500.2500, L100.0100 ####[facility] [address] [place], [address] HGB Normal 13.0-16.5 [facility] Comment on above: Result Comment: Canc elled via OM: Order cancelled - Patient discharged Performed By: #### L 500.2500, L100.0100 ####[facility] [address] [place], [address] MCH Normal 27.0-32.0 [facility] Comment on above: Result Comment: Canc elled via OM: Order cancelled - Patient discharged Performed By: #### L 500.2500, L100.0100 ####[facility] [address] [place], [address] MCHC Normal 32-36 [facility] Comment on above: Result Comment: Canc elled via OM: Order cancelled - Patient discharged Performed By: #### L 500.2500, L100.0100 ####[facility] [address] [place], [address] MCV Normal 80-94 [facility] Comment on above: Result Comment: Canc elled via OM: Order cancelled - Patient discharged Performed By: #### L 500.2500, L100.0100 ####[facility] [address] [place], [address] NEUT% Normal 47-70 [facility] Comment on above: Result Comment: Canc elled via OM: Order cancelled - Patient discharged Performed By: #### L 500.2500, L100.0100 ####[facility] [address] [place], [address] PLT Normal 150-450 [facility] Comment on above: Result Comment: Canc elled via OM: Order cancelled - Patient discharged Performed By: #### L 500.2500, L100.0100 ####[facility] [address] [place], [address] RBC Normal 4.6-6.2 [facility] Comment on above: Result Comment: Canc elled via OM: Order cancelled - Patient discharged Performed By: #### L 500.2500, L100.0100 ####[facility] [address] [place], [address] RDW CV Normal 11.6-14.6 [facility] Comment on above: Result Comment: Canc elled via OM: Order cancelled - Patient discharged Performed By: #### L 500.2500, L100.0100 ####[facility] [address] [place], [address] RDW SD Normal 35.1-43.9 [facility] Comment on above: Result Comment: Canc elled via OM: Order cancelled - Patient discharged Performed By: #### L 500.2500, L100.0100 ####[facility] [address] [place], [address] WBC Normal 4.4-11.0 [facility] Comment on above: Result Comment: Canc elled via OM: Order cancelled - Patient discharged Performed By: #### L 500.2500, L100.0100 ####[facility] [address] [place], [address] Basic Metabolic Profile (BMP )on 03-10-2025 BUN Normal 4-19 [facility] Comment on above: Result Comment: Canc elled via OM: Order cancelled - Patient discharged Performed By: #### L 500.2500, L100.0100 ####[facility] [address] [place], [address] BUN/CRE Normal 10-20 [facility] Comment on above: Result Comment: Canc elled via OM: Order cancelled - Patient discharged Performed By: #### L 500.2500, L100.0100 ####[facility] [address] [place], [address] Calcium Normal 7.6-11.0 [facility] Comment on above: Result Comment: Canc elled via OM: Order cancelled - Patient discharged Performed By: #### L 500.2500, L100.0100 ####[facility] [address] [place], [address] CL Normal 98-108 [facility] Comment on above: Result Comment: Canc elled via OM: Order cancelled - Patient discharged Performed By: #### L 500.2500, L100.0100 ####[facility] [address] [place], [address] CO2 Normal 21.0-32.0 [facility] Comment on above: Result Comment: Canc elled via OM: Order cancelled - Patient discharged Performed By: #### L 500.2500, L100.0100 ####[facility] [address] [place], [address] CREAT,SERUM Normal 0.70-1.20 [facility] Comment on above: Result Comment: Canc elled via OM: Order cancelled - Patient discharged Performed By: #### L 500.2500, L100.0100 ####[facility] [address] [place], [address] eGFR Normal >60 [facility] Comment on above: Result Comment: Canc elled via OM: Order cancelled - Patient discharged Performed By: #### L 500.2500, L100.0100 ####[facility] [address] [place], [address] GAP Normal 5-15 [facility] Comment on above: Result Comment: Canc elled via OM: Order cancelled - Patient discharged Performed By: #### L 500.2500, L100.0100 ####[facility] [address] [place], [address] GLU Normal 70-99 [facility] Comment on above: Result Comment: Canc elled via OM: Order cancelled - Patient discharged Performed By: #### L 500.2500, L100.0100 ####[facility] [address] [place], [address] Potassium Normal 3.3-5.1 [facility] Comment on above: Result Comment: Canc elled via OM: Order cancelled - Patient discharged Performed By: #### L 500.2500, L100.0100 ####[facility] [address] [place], [address] Basic Metabolic Profile (BMP) Normal 133-145 [facility] Comment on above: Result Comment: Canc elled via OM: Order cancelled - Patient discharged Performed By: #### L 500.2500, L100.0100 ####[facility] [address] [place], [address] CBC W/Diff, Automatedon 07-2 Absolute Neut Normal 2.0-7.7 [facility] Comment on above: Result Comment: Canc elled via OM: Order cancelled - Patient discharged Performed By: #### L 500.2500, L100.0100 ####[facility] [address] [place], [address] HCT Normal 40-54 [facility] Comment on above: Result Comment: Canc elled via OM: Order cancelled - Patient discharged Performed By: #### L 500.2500, L100.0100 ####[facility] [address] [place], [address] HGB Normal 13.0-16.5 [facility] Comment on above: Result Comment: Canc elled via OM: Order cancelled - Patient discharged Performed By: #### L 500.2500, L100.0100 ####[facility] [address] [place], [address] MCH Normal 27.0-32.0 [facility] Comment on above: Result Comment: Canc elled via OM: Order cancelled - Patient discharged Performed By: #### L 500.2500, L100.0100 ####[facility] [address] [place], [address] MCHC Normal 32-36 [facility] Comment on above: Result Comment: Canc elled via OM: Order cancelled - Patient discharged Performed By: #### L 500.2500, L100.0100 ####[facility] [address] [place], [address] MCV Normal 80-94 [facility] Comment on above: Result Comment: Canc elled via OM: Order cancelled - Patient discharged Performed By: #### L 500.2500, L100.0100 ####[facility] [address] [place], [address] NEUT% Normal 47-70 [facility] Comment on above: Result Comment: Canc elled via OM: Order cancelled - Patient discharged Performed By: #### L 500.2500, L100.0100 ####[facility] [address] [place], [address] PLT Normal 150-450 [facility] Comment on above: Result Comment: Canc elled via OM: Order cancelled - Patient discharged Performed By: #### L 500.2500, L100.0100 ####[facility] [address] [place], [address] RBC Normal 4.6-6.2 [facility] Comment on above: Result Comment: Canc elled via OM: Order cancelled - Patient discharged Performed By: #### L 500.2500, L100.0100 ####[facility] [address] [place], [address] RDW CV Normal 11.6-14.6 [facility] Comment on above: Result Comment: Canc elled via OM: Order cancelled - Patient discharged Performed By: #### L 500.2500, L100.0100 ####[facility] [address] [place], [address] RDW SD Normal 35.1-43.9 [facility] Comment on above: Result Comment: Canc elled via OM: Order cancelled - Patient discharged Performed By: #### L 500.2500, L100.0100 ####[facility] [address] [place], [address] WBC Normal 4.4-11.0 [facility] Comment on above: Result Comment: Canc elled via OM: Order cancelled - Patient discharged Performed By: #### L 500.2500, L100.0100 ####[facility] [address] [place], [address] Absolute lymphocyte countOrd ered By: Deric Lantigua on 03-09-2025 Lymphocytes Auto (Unsp spec) [#/Vol] 0.53 10*3/uL Low 0.83-4.51 [facility] Absolute neutrophil countOrd ered By: Deric Lantigua on 03-09-2025 Neutrophils (Bld) [#/Vol] 4.0 10*3/uL 2.0-7.7 [facility] Anion gap in Serum or Plasma Ordered By: Deric Lantigua on 03-09-2025 Anion gap [Moles/Vol] 10 mmol/L 5-15 [facility] Automated lymphocyte count a s percentage of total leukocytesOrdered By: Deric Lantigua on 03-09-2025 Lymphocytes/100 WBC Auto (Unsp spec) 9.7 % Low 19-41 [facility] BUN/creatinine ratioOrdered By: Deric Lantigua on 03-09-2025 Urea nitrogen/Creatinine [Mass ratio] 20.8 mg/mg High 10-20 [facility] Basic Metabolic Profile (BMP )on 03-09-2025 BUN/CRE 20.8 RATIO High 10-20 [facility] Comment on above: Performed By: #### L 100.0100, L500.2500 ####[facility] [address] [place], [address] Calcium [Mass/Vol] 9.0 mg/dL Normal 7.6-11.0 [facility] Comment on above: Performed By: #### L 100.0100, L500.2500 ####[facility] [address] [place], [address] Chloride [Moles/Vol] 101 mmol/L Normal 98-108 [facility] Comment on above: Performed By: #### L 100.0100, L500.2500 ####[facility] [address] [place], [address] CO2 [Moles/Vol] 26.6 mmol/L Normal 21.0-32.0 [facility] Comment on above: Performed By: #### L 100.0100, L500.2500 ####[facility] [address] [place], [address] Creatinine [Mass/Vol] 2.41 mg/dL High 0.70-1.20 [facility] Comment on above: Performed By: #### L 100.0100, L500.2500 ####[facility] [address] [place], [address] ECRCL 24.14 ml/min Low 50-250 [facility] Comment on above: Performed By: #### L 100.0100, L500.2500 ####[facility] [address] [place], [address] GAP 10 Normal 5-15 [facility] Comment on above: Performed By: #### L 100.0100, L500.2500 ####[facility] [address] [place], [address] GFR/1.73 sq M.predicted among non-blacks MDRD (S/P/Bld) [Vol rate/Area] 26 mL/min/{1.73_m2} Low >60 [facility] Comment on above: Result Comment: mL/m in/1.73m2 CKD-EPI Creatinine Equation (2020) Performed By: #### L 100.0100, L500.2500 ####[facility] [address] [place], [address] Glucose [Mass/Vol] 118 mg/dL High 70-99 [facility] Comment on above: Performed By: #### L 100.0100, L500.2500 ####[facility] [address] [place], [address] Potassium [Moles/Vol] 4.3 mmol/L Normal 3.3-5.1 [facility] Comment on above: Performed By: #### L 100.0100, L500.2500 ####[facility] [address] [place], [address] Sodium [Moles/Vol] 138 mmol/L Normal 133-145 [facility] Comment on above: Performed By: #### L 100.0100, L500.2500 ####[facility] [address] [place], [address] Urea nitrogen [Mass/Vol] 50 mg/dL High 4-19 [facility] Comment on above: Performed By: #### L 100.0100, L500.2500 ####[facility] [address] [place], [address] Basophil percentageOrdered B y: Deric Lantigua on 03-09-2025 Basophils/100 WBC (Bld) 0.2 % 0-1 [facility] Bedside Glucoseon 03-09-2025 FINGERSTICK GLU 184 mg/dL High 74-106 [facility] Comment on above: Result Comment: KODY GEMENT OF PATIENT CARE PER NURSING PROTOCOL Performed By: #### L 501.080 ####[facility] [address] [place], [address] FINGERSTICK GLU 112 mg/dL High 74-106 [facility] Comment on above: Result Comment: KODY GEMENT OF PATIENT CARE PER NURSING PROTOCOL Performed By: #### L 501.080 ####[facility] [address] [place], [address] CBC W/Diff, Automatedon - Absolute Lymph 0.53 X10 3/uL Low 0.83-4.51 [facility] Comment on above: Performed By: #### L 100.0100, L500.2500 ####[facility] [address] [place], [address] Absolute Neut 4.0 X10 3/uL Normal 2.0-7.7 [facility] Comment on above: Performed By: #### L 100.0100, L500.2500 ####[facility] [address] [place], [address] Basophils/100 WBC (Bld) 0.2 % Normal 0-1 [facility] Comment on above: Performed By: #### L 100.0100, L500.2500 ####[facility] [address] [place], [address] Eosinophils/100 WBC (Bld) 4.8 % Normal 0-5 [facility] Comment on above: Performed By: #### L 100.0100, L500.2500 ####[facility] [address] [place], [address] Erythrocyte distribution width (RBC) [Ratio] 16.3 % High 11.6-14.6 [facility] Comment on above: Performed By: #### L 100.0100, L500.2500 ####[facility] [address] [place], [address] Hematocrit (Bld) [Volume fraction] 29.6 % Low 40-54 [facility] Comment on above: Performed By: #### L 100.0100, L500.2500 ####[facility] [address] [place], [address] Hemoglobin (Bld) [Mass/Vol] 9.3 g/dL Low 13.0-16.5 [facility] Comment on above: Performed By: #### L 100.0100, L500.2500 ####[facility] [address] [place], [address] IG% 0.600 Normal 0.0-0.9 [facility] Comment on above: Result Comment: IG% - Immature Granulocytes (promyelocytes, myelocytes andmetamyelocytes) > 1% indicates that a LEFT SHIFT is Present. Performed By: #### L 100.0100, L500.2500 ####[facility] [address] [place], [address] Lymphocytes/100 WBC (Bld) 9.7 % Low 19-41 [facility] Comment on above: Performed By: #### L 100.0100, L500.2500 ####[facility] [address] [place], [address] MCH (RBC) [Entitic mass] 27.5 pg Normal 27.0-32.0 [facility] Comment on above: Performed By: #### L 100.0100, L500.2500 ####[facility] [address] [place], [address] MCHC (RBC) [Mass/Vol] 31.4 g/dL Low 32-36 [facility] Comment on above: Performed By: #### L 100.0100, L500.2500 ####[facility] [address] [place], [address] MCV (RBC) [Entitic vol] 87.6 fL Normal 80-94 [facility] Comment on above: Performed By: #### L 100.0100, L500.2500 ####[facility] [address] [place], [address] Monocytes/100 WBC (Bld) 12.1 % High 0-10 [facility] Comment on above: Performed By: #### L 100.0100, L500.2500 ####[facility] [address] [place], [address] Neutrophils/100 WBC (Bld) 72.6 % High 47-70 [facility] Comment on above: Performed By: #### L 100.0100, L500.2500 ####[facility] [address] [place], [address] Nucleated RBC (Bld) [#/Vol] 0 10*3/uL Normal 0-5 [facility] Comment on above: Performed By: #### L 100.0100, L500.2500 ####[facility] [address] [place], [address] Platelet mean volume (Bld) [Entitic vol] 10.0 fL Normal 6.2-12.0 [facility] Comment on above: Performed By: #### L 100.0100, L500.2500 ####[facility] [address] [place], [address] Platelets (Bld) [#/Vol] 162 10*3/uL Normal 150-450 [facility] Comment on above: Performed By: #### L 100.0100, L500.2500 ####[facility] [address] [place], [address] RBC (Bld) [#/Vol] 3.38 10*6/uL Low 4.6-6.2 [facility] Comment on above: Performed By: #### L 100.0100, L500.2500 ####[facility] [address] [place], [address] RDW SD 51.8 fl High 35.1-43.9 [facility] Comment on above: Performed By: #### L 100.0100, L500.2500 ####[facility] [address] [place], [address] WBC (Bld) [#/Vol] 5.5 10*3/uL Normal 4.4-11.0 [facility] Comment on above: Performed By: #### L 100.0100, L500.2500 ####[facility] [address] [place], [address] Carbon dioxide, total [Moles /volume] in Central venous bloodOrdered By: Deric Lantigua on 03-09-2025 CO2 [Moles/Vol] 26.6 mmol/L 21.0-32.0 [facility] Chloride assayOrdered By: Silvia Lantigua on 03-09-2025 Chloride [Moles/Vol] 101 mmol/L 98-108 [facility] Discharge Instructionon 02-18 Discharge Instruction Normal [facility] Eosinophil percentageOrdered By: Deric Lantigua on 03-09-2025 Eosinophils/100 WBC (Bld) 4.8 % 0-5 [facility] Erythrocyte distribution wid th ratioOrdered By: Deric Lantigua on 03-09-2025 Erythrocyte distribution width (RBC) [Ratio] 16.3 % High 11.6-14.6 [facility] Erythrocyte distribution wid th standard deviationOrdered By: Deric Lantigua on 03-09-2025 Erythrocyte distribution width (RBC) [Ratio] 51.8 fl High 35.1-43.9 [facility] Glomerular filtration rate ( GFR) estimation/1.73 sq m using serum, plasma, or whole bOrdered By: Deric Lantigua on 03-09-2025 GFR/1.73 sq M.predicted among non-blacks MDRD (S/P/Bld) [Vol rate/Area] 26 mL/min/{1.73_m2} Low >60 [facility] Comment on above: mL/min/1.73m2 CKD-EP I Creatinine Equation (2020) [facility] deOrdered By: Deric Lantigua on 03-09-2025 Glucose [Mass/Vol] 184 mg/dL High 74-106 [facility] Comment on above: MANAGEMENT OF PATIEN T CARE PER NURSING PROTOCOL Hematocrit Auto (Bld) [Volum e fraction]Ordered By: Deric Lantigua on 03-09-2025 Hematocrit (Bld) [Volume fraction] 29.6 % Low 40-54 [facility] Hemoglobin measurementOrdere d By: Deric Lantigua on 03-09-2025 Hemoglobin (Bld) [Mass/Vol] 9.3 g/dL Low 13.0-16.5 [facility] Immature granulocytes/100 WB C Auto (Bld)Ordered By: Derci Lantigua on 03-09-2025 Immature granulocytes/100 WBC (Bld) 0.600 % 0.0-0.9 [facility] Comment on above: IG% - Immature Granu locytes (promyelocytes, myelocytes and metamyelocytes) > 1% indicates that a LEFT SHIFT is Present. MCV (mean corpuscular volume ) determinationOrdered By: Deric Lantigua on 03-09-2025 MCV (RBC) [Entitic vol] 87.6 fL 80-94 [facility] Mean corpuscular hemoglobin (MCH) determinationOrdered By: Deric Lantigua on 03-09-2025 MCH (RBC) [Entitic mass] 27.5 pg 27.0-32.0 [facility] Mean corpuscular hemoglobin concentration (MCHC) determinationOrdered By: Deric Lantigua on 03-09-2025 MCHC (RBC) [Mass/Vol] 31.4 g/dL Low 32-36 [facility] Mean platelet volume determi nationOrdered By: Deric Lantigua on 03-09-2025 Platelet mean volume (Bld) [Entitic vol] 10.0 fL 6.2-12.0 [facility] Monocyte percentageOrdered B y: Deric Lantigua on 03-09-2025 Monocytes/100 WBC (Bld) 12.1 % High 0-10 [facility] Neutrophil percentageOrdered By: Deric Lantigua on 03-09-2025 Neutrophils/100 WBC (Bld) 72.6 % High 47-70 [facility] Nucleated red blood cell per centageOrdered By: Deric Lantigua on 03-09-2025 Nucleated RBC/100 WBC (Bld) [Ratio] 0 % 0-5 [facility] Platelet countOrdered By: Silvia Lantigua on 03-09-2025 Platelets (Bld) [#/Vol] 162 10*3/uL 150-450 [facility] Potassium measurement (mass/ volume)Ordered By: Dreic Lantigua on 03-09-2025 Potassium (Unsp spec) [Mass/Vol] 4.3 mmol/L 3.3-5.1 [facility] RBC Auto (Bld) [#/Vol]Ordere d By: Deric Lantigua on 03-09-2025 RBC (Bld) [#/Vol] 3.38 10*6/uL Low 4.6-6.2 [facility] Serum creatinine measurement (mass/volume)Ordered By: Deric Lantigua on 03-09-2025 Creatinine [Mass/Vol] 2.41 mg/dL High 0.70-1.20 [facility] Serum glucose measurement (m ass/volume)Ordered By: Deric Lantigua on 03-09-2025 Glucose [Mass/Vol] 118 mg/dL High 70-99 [facility] Serum or plasma calcium [place] urement (mass/volume)Ordered By: Deric Lantigua on 03-09-2025 Calcium [Mass/Vol] 9.0 mg/dL 7.6-11.0 [facility] Serum or plasma urea nitroge n measurement (mass/volume)Ordered By: Deric Lantigua on 03-09-2025 Urea nitrogen [Mass/Vol] 50 mg/dL High 4-19 [facility] Sodium levelOrdered By: Mikki Lantigua on 03-09-2025 Sodium [Moles/Vol] 138 mmol/L 133-145 [facility] White blood cell (WBC) count Ordered By: Deric Lantigua on 03-09-2025 WBC (Bld) [#/Vol] 5.5 10*3/uL 4.4-11.0 [facility] Basic Metabolic Profile (BMP )on 03-08-2025 BUN/CRE 19.9 RATIO Normal 10-20 [facility] Comment on above: Performed By: #### L 500.2500 ####[facility] [address] [facility] [address] Calcium [Mass/Vol] 8.8 mg/dL Normal 7.6-11.0 [facility] Comment on above: Performed By: #### L 500.2500 ####[facility] [address] [place], [address] Chloride [Moles/Vol] 99 mmol/L Normal 98-108 [facility] Comment on above: Performed By: #### L 500.2500 ####[facility] [address] [place], [address] CO2 [Moles/Vol] 27.0 mmol/L Normal 21.0-32.0 [facility] Comment on above: Performed By: #### L 500.2500 ####[facility] [address] [place], [address] Creatinine [Mass/Vol] 3.11 mg/dL High 0.70-1.20 [facility] Comment on above: Performed By: #### L 500.2500 ####[facility] [address] [place], [address] ECRCL 17.10 ml/min Low 50-250 [facility] Comment on above: Performed By: #### L 500.2500 ####[facility] [address] [place], [address] GAP 10 Normal 5-15 [facility] Comment on above: Performed By: #### L 500.2500 ####[facility] [address] [place], [address] GFR/1.73 sq M.predicted among non-blacks MDRD (S/P/Bld) [Vol rate/Area] 19 mL/min/{1.73_m2} Low >60 [facility] Comment on above: Result Comment: mL/m in/1.73m2 CKD-EPI Creatinine Equation (2020) Performed By: #### L 500.2500 ####[facility] [address] [place], [address] Glucose [Mass/Vol] 127 mg/dL High 70-99 [facility] Comment on above: Performed By: #### L 500.2500 ####[facility] [address] [place], [address] Potassium [Moles/Vol] 5.3 mmol/L High 3.3-5.1 [facility] Comment on above: Performed By: #### L 500.2500 ####[facility] [address] [place], [address] Sodium [Moles/Vol] 135 mmol/L Normal 133-145 [facility] Comment on above: Performed By: #### L 500.2500 ####[facility] [address] [place], [address] Urea nitrogen [Mass/Vol] 62 mg/dL High 4-19 [facility] Comment on above: Performed By: #### L 500.2500 ####[facility] [address] [place], [address] Bedside Glucoseon 03-08-2025 FINGERSTICK GLU 132 mg/dL High 74-106 [facility] Comment on above: Result Comment: KODY GEMENT OF PATIENT CARE PER NURSING PROTOCOL Performed By: #### L 501.080 ####[facility] [address] [place], [address] FINGERSTICK GLU 142 mg/dL High 74-106 [facility] Comment on above: Result Comment: OKDY GEMENT OF PATIENT CARE PER NURSING PROTOCOL Performed By: #### L 501.080 ####[facility] [address] [place], [address] FINGERSTICK GLU 128 mg/dL High 74-106 [facility] Comment on above: Result Comment: KODY GEMENT OF PATIENT CARE PER NURSING PROTOCOL Performed By: #### L 501.080 ####[facility] [address] [place], [address] FINGERSTICK GLU 122 mg/dL High 74-106 [facility] Comment on above: Result Comment: KODY GEMENT OF PATIENT CARE PER NURSING PROTOCOL Performed By: #### L 501.080 ####[facility] [address] [place], [address] Magnesiumon 03-08-2025 Magnesium [Mass/Vol] 2.3 mg/dL High 1.5-2.2 [facility] Comment on above: Performed By: #### L 501.5200 ####[facility] [address] [place], [address] Magnesium measurement (mass/ volume)Ordered By: Nicola Madison on 03-08-2025 Magnesium (Unsp spec) [Mass/Vol] 2.3 mg/dL High 1.5-2.2 [facility] Potassiumon 03-08-2025 Potassium [Moles/Vol] 5.5 mmol/L High 3.3-5.1 [facility] Comment on above: Performed By: #### L 501.5600 ####[facility] [address] [place], [address] Basic Metabolic Profile (BMP )on 03-07-2025 BUN/CRE 18.2 RATIO Normal 10-20 [facility] Comment on above: Performed By: #### L 500.2500 ####[facility] [address] [place], [address] Calcium [Mass/Vol] 8.7 mg/dL Normal 7.6-11.0 [facility] Comment on above: Performed By: #### L 500.2500 ####[facility] [address] [place], [address] Chloride [Moles/Vol] 97 mmol/L Low 98-108 [facility] Comment on above: Performed By: #### L 500.2500 ####[facility] [address] [place], [address] CO2 [Moles/Vol] 26.3 mmol/L Normal 21.0-32.0 [facility] Comment on above: Performed By: #### L 500.2500 ####[facility] [address] [place], [address] Creatinine [Mass/Vol] 3.09 mg/dL High 0.70-1.20 [facility] Comment on above: Performed By: #### L 500.2500 ####[facility] [address] [place], [address] ECRCL 17.21 ml/min Low 50-250 [facility] Comment on above: Performed By: #### L 500.2500 ####[facility] [address] [place], [address] GAP 10 Normal 5-15 [facility] Comment on above: Performed By: #### L 500.2500 ####[facility] [address] [place], [address] GFR/1.73 sq M.predicted among non-blacks MDRD (S/P/Bld) [Vol rate/Area] 20 mL/min/{1.73_m2} Low >60 [facility] Comment on above: Result Comment: mL/m in/1.73m2 CKD-EPI Creatinine Equation (2020) Performed By: #### L 500.2500 ####[facility] [address] [place], [address] Glucose [Mass/Vol] 126 mg/dL High 70-99 [facility] Comment on above: Performed By: #### L 500.2500 ####[facility] [address] [place], [address] Potassium [Moles/Vol] 4.8 mmol/L Normal 3.3-5.1 [facility] Comment on above: Performed By: #### L 500.2500 ####[facility] [address] [place], [address] Sodium [Moles/Vol] 134 mmol/L Normal 133-145 [facility] Comment on above: Performed By: #### L 500.2500 ####[facility] [address] [place], [address] Urea nitrogen [Mass/Vol] 56 mg/dL High 4-19 [facility] Comment on above: Performed By: #### L 500.2500 ####[facility] [address] [place], [address] Bedside Glucoseon 03-07-2025 FINGERSTICK GLU 151 mg/dL High 74-106 [facility] Comment on above: Result Comment: KODY GEMENT OF PATIENT CARE PER NURSING PROTOCOL Performed By: #### L 501.080 ####[facility] [address] [place], [address] FINGERSTICK GLU 191 mg/dL High 74-106 [facility] Comment on above: Result Comment: KODY GEMENT OF PATIENT CARE PER NURSING PROTOCOL Performed By: #### L 501.080 ####[facility] [address] [place], [address] FINGERSTICK GLU 184 mg/dL High 74-106 [facility] Comment on above: Result Comment: KODY GEMENT OF PATIENT CARE PER NURSING PROTOCOL Performed By: #### L 501.080 ####[facility] [address] [place], [address] FINGERSTICK GLU 127 mg/dL High 74-106 [facility] Comment on above: Result Comment: KODY GEMENT OF PATIENT CARE PER NURSING PROTOCOL Performed By: #### L 501.080 ####[facility] [address] [place], [address] Urine Cultureon 03-07-2025 [facility] Comments: On UA samp le of 03/04 Culture exhibits no growth. Normal [facility] Comment on above: Performed By: #### M 100.2200 ####[facility] [address] [place], [address] Basic Metabolic Profile (BMP )on 03-06-2025 BUN/CRE 17.8 RATIO Normal 10-20 [facility] Comment on above: Performed By: #### L 500.2500, L501.2300 ####[facility] [address] [place], [address] Calcium [Mass/Vol] 9.1 mg/dL Normal 7.6-11.0 [facility] Comment on above: Performed By: #### L 500.2500, L501.2300 ####[facility] [address] [place], [address] Chloride [Moles/Vol] 99 mmol/L Normal 98-108 [facility] Comment on above: Performed By: #### L 500.2500, L501.2300 ####[facility] [address] [place], [address] CO2 [Moles/Vol] 31.2 mmol/L Normal 21.0-32.0 [facility] Comment on above: Performed By: #### L 500.2500, L501.2300 ####[facility] [address] [place], [address] Creatinine [Mass/Vol] 2.23 mg/dL High 0.70-1.20 [facility] Comment on above: Performed By: #### L 500.2500, L501.2300 ####[facility] [address] [place], [address] ECRCL 23.84 ml/min Low 50-250 [facility] Comment on above: Performed By: #### L 500.2500, L501.2300 ####[facility] [address] [place], [address] GAP 8 Normal 5-15 [facility] Comment on above: Performed By: #### L 500.2500, L501.2300 ####[facility] [address] [place], [address] GFR/1.73 sq M.predicted among non-blacks MDRD (S/P/Bld) [Vol rate/Area] 29 mL/min/{1.73_m2} Low >60 [facility] Comment on above: Result Comment: mL/m in/1.73m2 CKD-EPI Creatinine Equation (2020) Performed By: #### L 500.2500, L501.2300 ####[facility] [address] [place], [address] Glucose [Mass/Vol] 118 mg/dL High 70-99 [facility] Comment on above: Performed By: #### L 500.2500, L501.2300 ####[facility] [address] [place], [address] Potassium [Moles/Vol] 4.7 mmol/L Normal 3.3-5.1 [facility] Comment on above: Performed By: #### L 500.2500, L501.2300 ####[facility] [address] [place], [address] Sodium [Moles/Vol] 138 mmol/L Normal 133-145 [facility] Comment on above: Performed By: #### L 500.2500, L501.2300 ####[facility] [address] [place], [address] Urea nitrogen [Mass/Vol] 40 mg/dL High 4-19 [facility] Comment on above: Performed By: #### L 500.2500, L501.2300 ####[facility] [address] [place], [address] Bedside Glucoseon 03-06-2025 FINGERSTICK GLU 146 mg/dL High 74-106 [facility] Comment on above: Result Comment: KODY GEMENT OF PATIENT CARE PER NURSING PROTOCOL Performed By: #### L 501.080 ####[facility] [address] [place], [address] FINGERSTICK GLU 117 mg/dL High 74-106 [facility] Comment on above: Result Comment: KODY GEMENT OF PATIENT CARE PER NURSING PROTOCOL Performed By: #### L 501.080 ####[facility] [address] [place], [address] FINGERSTICK GLU 229 mg/dL High 74-106 [facility] Comment on above: Result Comment: KODY GEMENT OF PATIENT CARE PER NURSING PROTOCOL Performed By: #### L 501.080 ####[facility] [address] [place], [address] FINGERSTICK GLU 109 mg/dL High 74-106 [facility] Comment on above: Result Comment: KODY GEMENT OF PATIENT CARE PER NURSING PROTOCOL Performed By: #### L 501.080 ####[facility] [address] [place], [address] FINGERSTICK GLU 140 mg/dL High 74-106 [facility] Comment on above: Result Comment: KODY GEMENT OF PATIENT CARE PER NURSING PROTOCOL Performed By: #### L 501.080 ####[facility] [address] [place], [address] Consultation - Cardiologyon 03-06-2025 Consultation - Cardiology Normal [facility] Phosphoruson 03-06-2025 Phosphate [Mass/Vol] 3.9 mg/dL Normal 2.7-4.5 [facility] Comment on above: Performed By: #### L 500.2500, L501.2300 ####[facility] [address] [place], [address] Urine cultureOrdered By: Kavita Lantigua on 03-06-2025 Bacteria identified Cx Nom (U) Culture exhibits no growth. [facility] Bedside Glucoseon 03-05-2025 FINGERSTICK GLU 111 mg/dL High 74-106 [facility] Comment on above: Result Comment: KODY GEMENT OF PATIENT CARE PER NURSING PROTOCOL Performed By: #### L 501.080 ####[facility] [address] [place], [address] FINGERSTICK GLU 152 mg/dL High 74-106 [facility] Comment on above: Result Comment: KODY GEMENT OF PATIENT CARE PER NURSING PROTOCOL Performed By: #### L 501.080 ####[facility] [address] [place], [address] FINGERSTICK GLU 159 mg/dL High 74-106 [facility] Comment on above: Result Comment: KODY GEMENT OF PATIENT CARE PER NURSING PROTOCOL Performed By: #### L 501.080 ####[facility] [address] [place], [address] Bilirubin, totalOrdered By: Nicola Madison on 03-05-2025 Bilirubin [Mass/Vol] 0.46 mg/dL 0.00-1.30 [facility] CBC W/Diff, Automatedon 02-17 Absolute Lymph 0.72 X10 3/uL Low 0.83-4.51 [facility] Comment on above: Performed By: #### L 501.2300, L100.0100 ####[facility] [address] [place], [address] Absolute Neut 5.8 X10 3/uL Normal 2.0-7.7 [facility] Comment on above: Performed By: #### L 501.2300, L100.0100 ####[facility] [address] [place], [address] Basophils/100 WBC (Bld) 0.4 % Normal 0-1 [facility] Comment on above: Performed By: #### L 501.2300, L100.0100 ####[facility] [address] [place], [address] Eosinophils/100 WBC (Bld) 2.0 % Normal 0-5 [facility] Comment on above: Performed By: #### L 501.2300, L100.0100 ####[facility] [address] [place], [address] Erythrocyte distribution width (RBC) [Ratio] 16.6 % High 11.6-14.6 [facility] Comment on above: Performed By: #### L 501.2300, L100.0100 ####[facility] [address] [place], [address] Hematocrit (Bld) [Volume fraction] 30.1 % Low 40-54 [facility] Comment on above: Performed By: #### L 501.2300, L100.0100 ####[facility] [address] [place], [address] Hemoglobin (Bld) [Mass/Vol] 9.3 g/dL Low 13.0-16.5 [facility] Comment on above: Performed By: #### L 501.2300, L100.0100 ####[facility] [address] [place], [address] IG% 0.300 Normal 0.0-0.9 [facility] Comment on above: Result Comment: IG% - Immature Granulocytes (promyelocytes, myelocytes andmetamyelocytes) > 1% indicates that a LEFT SHIFT is Present. Performed By: #### L 501.2300, L100.0100 ####[facility] [address] [place], [address] Lymphocytes/100 WBC (Bld) 9.5 % Low 19-41 [facility] Comment on above: Performed By: #### L 501.2300, L100.0100 ####[facility] [address] [place], [address] MCH (RBC) [Entitic mass] 27.0 pg Normal 27.0-32.0 [facility] Comment on above: Performed By: #### L 501.2300, L100.0100 ####[facility] [address] [place], [address] MCHC (RBC) [Mass/Vol] 30.9 g/dL Low 32-36 [facility] Comment on above: Performed By: #### L 501.2300, L100.0100 ####[facility] [address] [place], [address] MCV (RBC) [Entitic vol] 87.5 fL Normal 80-94 [facility] Comment on above: Performed By: #### L 501.2300, L100.0100 ####[facility] [address] [place], [address] Monocytes/100 WBC (Bld) 11.4 % High 0-10 [facility] Comment on above: Performed By: #### L 501.2300, L100.0100 ####[facility] [address] [place], [address] Neutrophils/100 WBC (Bld) 76.4 % High 47-70 [facility] Comment on above: Performed By: #### L 501.2300, L100.0100 ####[facility] [address] [place], [address] Nucleated RBC (Bld) [#/Vol] 0 10*3/uL Normal 0-5 [facility] Comment on above: Performed By: #### L 501.2300, L100.0100 ####[facility] [address] [place], [address] Platelet mean volume (Bld) [Entitic vol] 10.7 fL Normal 6.2-12.0 [facility] Comment on above: Performed By: #### L 501.2300, L100.0100 ####[facility] [address] [place], [address] Platelets (Bld) [#/Vol] 181 10*3/uL Normal 150-450 [facility] Comment on above: Performed By: #### L 501.2300, L100.0100 ####[facility] [address] [place], [address] RBC (Bld) [#/Vol] 3.44 10*6/uL Low 4.6-6.2 [facility] Comment on above: Performed By: #### L 501.2300, L100.0100 ####[facility] [address] [place], [address] RDW SD 52.8 fl High 35.1-43.9 [facility] Comment on above: Performed By: #### L 501.2300, L100.0100 ####[facility] [address] [place], [address] WBC (Bld) [#/Vol] 7.6 10*3/uL Normal 4.4-11.0 [facility] Comment on above: Performed By: #### L 501.2300, L100.0100 ####[facility] [address] [place], [address] Calculated very low density lipoprotein (VLDL) cholesterol measurementOrdered By: Nicola Madison on 03-05-2025 Calculated very low density lipoprotein (VLDL) cholesterol measurement 16 mg/dL 5-40 [facility] Chest 1 View (Portable)on Chest 1 View (Portable) Normal [facility] Comprehensive Metabolic Prof ilon 03-05-2025 Albumin [Mass/Vol] 3.4 g/dL Normal 3.4-4.8 [facility] Comment on above: Performed By: #### L 500.4050, L503.7505, L500.4100 ####[facility] [address] [place], [address] Albumin/Globulin [Mass ratio] 0.9 {ratio} Normal 0.9-2.4 [facility] Comment on above: Performed By: #### L 500.4050, L503.7505, L500.4100 ####[facility] [address] [place], [address] ALK PHOS 75 U/L Normal 40-129 [facility] Comment on above: Performed By: #### L 500.4050, L503.7505, L500.4100 ####[facility] [address] [place], [address] ALT [Catalytic activity/Vol] 10 U/L Normal <=46 [facility] Comment on above: Performed By: #### L 500.4050, L503.7505, L500.4100 ####[facility] [address] [place], [address] AST [Catalytic activity/Vol] 15 U/L Normal <=37 [facility] Comment on above: Performed By: #### L 500.4050, L503.7505, L500.4100 ####[facility] [address] [place], [address] Bilirubin [Mass/Vol] 0.46 mg/dL Normal 0.00-1.30 [facility] Comment on above: Performed By: #### L 500.4050, L503.7505, L500.4100 ####[facility] [address] [place], [address] BUN/CRE 18.6 RATIO Normal 10-20 [facility] Comment on above: Performed By: #### L 500.4050, L503.7505, L500.4100 ####[facility] [address] [place], [address] Calcium [Mass/Vol] 9.1 mg/dL Normal 7.6-11.0 [facility] Comment on above: Performed By: #### L 500.4050, L503.7505, L500.4100 ####[facility] [address] [place], [address] Chloride [Moles/Vol] 101 mmol/L Normal 98-108 [facility] Comment on above: Performed By: #### L 500.4050, L503.7505, L500.4100 ####[facility] [address] [place], [address] CO2 [Moles/Vol] 27.2 mmol/L Normal 21.0-32.0 [facility] Comment on above: Performed By: #### L 500.4050, L503.7505, L500.4100 ####[facility] [address] [place], [address] Creatinine [Mass/Vol] 1.95 mg/dL High 0.70-1.20 [facility] Comment on above: Performed By: #### L 500.4050, L503.7505, L500.4100 ####[facility] [address] [place], [address] ECRCL 27.26 ml/min Low 50-250 [facility] Comment on above: Performed By: #### L 500.4050, L503.7505, L500.4100 ####[facility] [address] [place], [address] GAP 10 Normal 5-15 [facility] Comment on above: Performed By: #### L 500.4050, L503.7505, L500.4100 ####[facility] [address] [place], [address] GFR/1.73 sq M.predicted among non-blacks MDRD (S/P/Bld) [Vol rate/Area] 34 mL/min/{1.73_m2} Low >60 [facility] Comment on above: Result Comment: mL/m in/1.73m2 CKD-EPI Creatinine Equation (2020) Performed By: #### L 500.4050, L503.7505, L500.4100 ####[facility] [address] [place], [address] Globulin (S) [Mass/Vol] 3.9 g/dL Normal 2.2-4.2 [facility] Comment on above: Performed By: #### L 500.4050, L503.7505, L500.4100 ####[facility] [address] [place], [address] Glucose [Mass/Vol] 171 mg/dL High 70-99 [facility] Comment on above: Performed By: #### L 500.4050, L503.7505, L500.4100 ####[facility] [address] [place], [address] Potassium [Moles/Vol] 5.0 mmol/L Normal 3.3-5.1 [facility] Comment on above: Performed By: #### L 500.4050, L503.7505, L500.4100 ####[facility] [address] [place], [address] Sodium [Moles/Vol] 138 mmol/L Normal 133-145 [facility] Comment on above: Performed By: #### L 500.4050, L503.7505, L500.4100 ####[facility] [address] [place], [address] T PROT 7.3 g/dL Normal 5.9-8.4 [facility] Comment on above: Performed By: #### L 500.4050, L503.7505, L500.4100 ####[facility] [address] [place], [address] Urea nitrogen [Mass/Vol] 36 mg/dL High 4-19 [facility] Comment on above: Performed By: #### L 500.4050, L503.7505, L500.4100 ####[facility] [address] [place], [address] Echocardiogram study reportO rdered By: Marjorie Green on 03-05-2025 Study report [facility] [address] [place] [address] Echo Complete W/ Contrast 03/05/25 0941 MR#: [id number] Acct: [id number] Name: PEDRO HILLMAN Rep #:[id number] : 1945 80 From: Marjorie Green MD [...] Date Dictated: 03/05/25940 Date Transcribed: 03/05/25 115 High Voltage Electrician: Signed [facility] Work Phone: [phone] 03-05-2025 Natriuretic peptide B (Bld) [Mass/Vol] 4176 pg/mL High <=1800 [facility] Comment on above: Result Comment: Hear t Failure Unlikely: < 300 pg/mLHeart Failure Likely< 50 Years: > 450 pg/mL50-75 Years: > 900 pg/mL>75 Years: > 1800 pg/mL Performed By: Anthony### L 500.4050, L503.7505, L500.4100 ####[facility] [address] [place], [address] LDL calc ser/plasOrdered By: Nicola Madison on 03-05-2025 Cholesterol in LDL [Mass/Vol] 63 mg/dL [facility] Comment on above: Uecgawcqok=497-081 m g/dL & Higher Kimt=523 mg/dL or greater Laboratory - Chemistry and C hemistry - challengeOrdered By: Nicola Madison on 03-05-2025 AST [Catalytic activity/Vol] 15 U/L <38 [facility] Lipid Profileon 03-05-2025 CHOL:HDL 3.04 Normal [facility] Comment on above: Performed By: #### L 500.4050, L503.7505, L500.4100 ####[facility] [address] [place], [address] Cholesterol [Mass/Vol] 117 mg/dL Normal <=200 [facility] Comment on above: Result Comment: Chol esterol level, Desirable <200 mg/dLBorderline high cholesterol 200-239 mg/dLHigh cholesterol >=240 mg/dLRecommendations of the NCEP Adult Treatment Panel for thefollowing risk-cutoff thresholds for the [place] Americanpulation. Performed By: #### L 500.4050, L503.7505, L500.4100 ####[facility] [address] [place], [address] Cholesterol in HDL [Mass/Vol] 39 mg/dL Low [facility] Comment on above: Result Comment: Gia onal Cholesterol Education Program (NCEP) guidelines:<40 mg/dL: Low HDL-cholesterol (major risk factor for CHD)>= 60 mg/dL: High HDL-cholesterol (negative risk factor forCHD)HDL-cholesterol is affected by a number of factors, e.g.smoking, exercise, hormones, sex and age. Performed By: #### L 500.4050, L503.7505, L500.4100 ####[facility] [address] [place], [address] Cholesterol in LDL [Mass/Vol] 63 mg/dL Normal [facility] Comment on above: Result Comment: Bord fdrvps=730-552 mg/dL Higher Zrqg=205 mg/dL or greater Performed By: #### L 500.4050, L503.7505, L500.4100 ####[facility] [address] [place], [address] Cholesterol in VLDL [Mass/Vol] 16 mg/dL Normal 5-40 [facility] Comment on above: Performed By: #### L 500.4050, L503.7505, L500.4100 ####[facility] [address] [place], [address] Triglyceride [Mass/Vol] 79 mg/dL Normal [facility] Comment on above: Result Comment: The drugs N-Acetylcysteine and Metamizole may falselydepress this assay.Normal range: <150 mg/dLBorderline High: 150-199 mg/dLHigh: 200-499 mg/dLVery High: >500 mg/dL Performed By: #### L 500.4050, L503.7505, L500.4100 ####[facility] [address] [place], [address] Natriuretic peptide.B prohor girish N-Terminal [Mass/volume] in Serum or PlasmaOrdered By: Nicola Madison on 03-05-2025 Natriuretic peptide.B prohormone N-Terminal [Mass/Vol] 4176 pg/mL High <1800 [facility] Comment on above: Heart Failure Unlike ly: < 300 pg/mLHeart Failure Likely< 50 Years: > 450 pg/mL50-75 Years: > 900 pg/mL>75 Years: > 1800 pg/mL No Panel InformationOrdered By: Nicola Madison on 03-05-2025 15 U/L <38 [facility] Phosphoruson 03-05-2025 Phosphate [Mass/Vol] 3.3 mg/dL Normal 2.7-4.5 [facility] Comment on above: Performed By: #### L 501.2300, L100.0100 ####[facility] [address] [place], [address] Screening total cholesterol/ high density lipoprotein (HDL) cholesterol ratioOrdered By: Nicola Madison on 03-05-2025 Cholesterol.total/Choles terol in HDL [Mass ratio] 3.04 {ratio} [facility] Serum globulin measurementOr dered By: Nicola Madison on 03-05-2025 Globulin (S) [Mass/Vol] 3.9 g/dL 2.2-4.2 [facility] Serum or plasma alanine ortiz otransferase (ALT) measurementOrdered By: Nicola Madison on 03-05-2025 ALT [Catalytic activity/Vol] 10 U/L <47 [facility] Serum or plasma albumin kingsley urement (mass/volume)Ordered By: Nicola Madison on 03-05-2025 Albumin [Mass/Vol] 3.4 g/dL 3.4-4.8 [facility] Serum or plasma albumin/glob ulin mass ratioOrdered By: Nicola Madison on 03-05-2025 Albumin/Globulin [Mass ratio] 0.9 {ratio} 0.9-2.4 [facility] Serum or plasma alkaline [place]osevelt sphatase measurementOrdered By: Nicola Madison on 03-05-2025 ALP [Catalytic activity/Vol] 75 U/L 40-129 [facility] Serum or plasma cholesterol in HDL measurement (mass/volume)Ordered By: Nicola Madison on 03-05-2025 Cholesterol in HDL [Mass/Vol] 39 mg/dL Low >40 [facility] Comment on above: National Cholesterol Education Program (NCEP) guidelines:<40 mg/dL: Low HDL-cholesterol (major risk factor for CHD)>= 60 mg/dL: High HDL-cholesterol (negative risk factor for CHD)HDL-cholesterol is affected by a number of factors, e.g. smoking, exercise, hormones, sex and age. Serum or plasma cholesterol measurement (mass/volume)Ordered By: Nicola Madison on 03-05-2025 Cholesterol [Mass/Vol] 117 mg/dL <201 [facility] Comment on above: Cholesterol level, D esirable <200 mg/dLBorderline high cholesterol 200-239 mg/dLHigh cholesterol >=240 mg/dLRecommendations of the NCEP Adult Treatment Panel for the following risk-cutoff thresholds for the [place] population. Total proteinOrdered By: Jacob Madison on 03-05-2025 Protein [Mass/Vol] 7.3 g/dL 5.9-8.4 [facility] Triglycerides measurementOrd ered By: Nicola Madison on 03-05-2025 Triglyceride [Mass/Vol] 79 mg/dL <199 [facility] Comment on above: The drugs N-Acetylcy steine and Metamizole may falsely depress this assay. Normal range: <150 mg/dLBorderline High: 150-199 mg/dLHigh: 200-499 mg/dLVery High: >500 mg/dL Absolute lymphocyte countOrd ered By: Chris Ochoa on 03-04-2025 Lymphocytes Auto (Unsp spec) [#/Vol] 0.77 10*3/uL Low 0.83-4.51 [facility] Absolute neutrophil countOrd ered By: Chris Ochoa on 03-04-2025 Neutrophils (Bld) [#/Vol] 6.0 10*3/uL 2.0-7.7 [facility] Anion gap in Serum or Plasma Ordered By: Chris Ochoa on 03-04-2025 Anion gap [Moles/Vol] 8 mmol/L 5-15 [facility] Automated lymphocyte count a s percentage of total leukocytesOrdered By: Chris Ochoa on 03-04-2025 Lymphocytes/100 WBC Auto (Unsp spec) 10.1 % Low 19-41 [facility] BUN/creatinine ratioOrdered By: Chris Ochoa on 03-04-2025 Urea nitrogen/Creatinine [Mass ratio] 19.7 mg/mg 10- [facility] Basic Metabolic Profile (BMP )on 03-04-2025 BUN/CRE 19.7 RATIO Normal - [facility] Comment on above: Performed By: #### L 100.0100, L501.4021, L500.2500, L503.7505 ####[facility] [address] [place], [address] Calcium [Mass/Vol] 9.3 mg/dL Normal 7.6-11.0 [facility] Comment on above: Performed By: #### L 100.0100, L501.4021, L500.2500, L503.7505 ####[facility] [address] [place], [address] Chloride [Moles/Vol] 102 mmol/L Normal 98-108 [facility] Comment on above: Performed By: #### L 100.0100, L501.4021, L500.2500, L503.7505 ####[facility] [address] [place], [address] CO2 [Moles/Vol] 28.6 mmol/L Normal 21.0-32.0 [facility] Comment on above: Performed By: #### L 100.0100, L501.4021, L500.2500, L503.7505 ####[facility] [address] [place], [address] Creatinine [Mass/Vol] 1.86 mg/dL High 0.70-1.20 [facility] Comment on above: Performed By: #### L 100.0100, L501.4021, L500.2500, L503.7505 ####[facility] [address] [place], [address] ECRCL 28.58 ml/min Low 50-250 [facility] Comment on above: Performed By: #### L 100.0100, L501.4021, L500.2500, L503.7505 ####[facility] [address] [place], [address] GAP 8 Normal 5-15 [facility] Comment on above: Performed By: #### L 100.0100, L501.4021, L500.2500, L503.7505 ####[facility] [address] [place], [address] GFR/1.73 sq M.predicted among non-blacks MDRD (S/P/Bld) [Vol rate/Area] 36 mL/min/{1.73_m2} Low >60 [facility] Comment on above: Result Comment: mL/m in/1.73m2 CKD-EPI Creatinine Equation (2020) Performed By: #### L 100.0100, L501.4021, L500.2500, L503.7505 ####[facility] [address] [place], [address] Glucose [Mass/Vol] 124 mg/dL High 70-99 [facility] Comment on above: Performed By: #### L 100.0100, L501.4021, L500.2500, L503.7505 ####[facility] [address] [place], [address] Potassium [Moles/Vol] 5.2 mmol/L High 3.3-5.1 [facility] Comment on above: Performed By: #### L 100.0100, L501.4021, L500.2500, L503.7505 ####[facility] [facility] [address] [place], [address] Sodium [Moles/Vol] 138 mmol/L Normal 133-145 [facility] Comment on above: Performed By: #### L 100.0100, L501.4021, L500.2500, L503.7505 ####[facility] [address] [place], [address] Urea nitrogen [Mass/Vol] 37 mg/dL High 4-19 [facility] Comment on above: Performed By: #### L 100.0100, L501.4021, L500.2500, L503.7505 ####[facility] [address] [place], [address] Basophil percentageOrdered B y: Chris Ochoa on 03-04-2025 Basophils/100 WBC (Bld) 0.4 % 0-1 [facility] Bedside Glucoseon 03-04-2025 FINGERSTICK GLU 80 mg/dL Normal 74-106 [facility] Comment on above: Result Comment: KODY STRONG OF PATIENT CARE PER NURSING PROTOCOL Performed By: #### L 501.080 ####[facility] [address] [place], [address] Bilirubin Test strip Ql (U)O rdered By: Nicola Madison on 03-04-2025 Bilirubin Ql (U) Negative Negative [facility] CBC W/Diff, Automatedon 02-17 Absolute Lymph 0.77 X10 3/uL Low 0.83-4.51 [facility] Comment on above: Performed By: #### L 100.0100, L501.4021, L500.2500, L503.7505 ####[facility] [address] [place], [address] Absolute Neut 6.0 X10 3/uL Normal 2.0-7.7 [facility] Comment on above: Performed By: #### L 100.0100, L501.4021, L500.2500, L503.7505 ####[facility] [address] [place], [address] Basophils/100 WBC (Bld) 0.4 % Normal 0-1 [facility] Comment on above: Performed By: #### L 100.0100, L501.4021, L500.2500, L503.7505 ####[facility] [address] [place], [address] Eosinophils/100 WBC (Bld) 1.6 % Normal 0-5 [facility] Comment on above: Performed By: #### L 100.0100, L501.4021, L500.2500, L503.7505 ####[facility] [address] [place], [address] Erythrocyte distribution width (RBC) [Ratio] 16.5 % High 11.6-14.6 [facility] Comment on above: Performed By: #### L 100.0100, L501.4021, L500.2500, L503.7505 ####[facility] [address] [place], [address] Hematocrit (Bld) [Volume fraction] 33.4 % Low 40-54 [facility] Comment on above: Performed By: #### L 100.0100, L501.4021, L500.2500, L503.7505 ####[facility] [address] [place], [address] Hemoglobin (Bld) [Mass/Vol] 10.1 g/dL Low 13.0-16.5 [facility] Comment on above: Performed By: #### L 100.0100, L501.4021, L500.2500, L503.7505 ####[facility] [address] [place], [address] IG% 0.700 Normal 0.0-0.9 [facility] Comment on above: Result Comment: IG% - Immature Granulocytes (promyelocytes, myelocytes andmetamyelocytes) > 1% indicates that a LEFT SHIFT is Present. Performed By: #### L 100.0100, L501.4021, L500.2500, L503.7505 ####[facility] [address] [place], [address] Lymphocytes/100 WBC (Bld) 10.1 % Low 19-41 [facility] Comment on above: Performed By: #### L 100.0100, L501.4021, L500.2500, L503.7505 ####[facility] [address] [place], [address] MCH (RBC) [Entitic mass] 27.0 pg Normal 27.0-32.0 [facility] Comment on above: Performed By: #### L 100.0100, L501.4021, L500.2500, L503.7505 ####[facility] [address] [place], [address] MCHC (RBC) [Mass/Vol] 30.2 g/dL Low 32-36 [facility] Comment on above: Performed By: #### L 100.0100, L501.4021, L500.2500, L503.7505 ####[facility] [address] [place], [address] MCV (RBC) [Entitic vol] 89.3 fL Normal 80-94 [facility] Comment on above: Performed By: #### L 100.0100, L501.4021, L500.2500, L503.7505 ####[facility] [address] [place], [address] Monocytes/100 WBC (Bld) 9.1 % Normal 0-10 [facility] Comment on above: Performed By: #### L 100.0100, L501.4021, L500.2500, L503.7505 ####[facility] [address] [place], [address] Neutrophils/100 WBC (Bld) 78.1 % High 47-70 [facility] Comment on above: Performed By: #### L 100.0100, L501.4021, L500.2500, L503.7505 ####[facility] [address] [place], [address] Nucleated RBC (Bld) [#/Vol] 0 10*3/uL Normal 0-5 [facility] Comment on above: Performed By: #### L 100.0100, L501.4021, L500.2500, L503.7505 ####[facility] [address] [place], [address] Platelet mean volume (Bld) [Entitic vol] 10.2 fL Normal 6.2-12.0 [facility] Comment on above: Performed By: #### L 100.0100, L501.4021, L500.2500, L503.7505 ####[facility] [address] [place], [address] Platelets (Bld) [#/Vol] 189 10*3/uL Normal 150-450 [facility] Comment on above: Performed By: #### L 100.0100, L501.4021, L500.2500, L503.7505 ####[facility] [address] [place], [address] RBC (Bld) [#/Vol] 3.74 10*6/uL Low 4.6-6.2 [facility] Comment on above: Performed By: #### L 100.0100, L501.4021, L500.2500, L503.7505 ####[facility] [address] [place], [address] RDW SD 54.2 fl High 35.1-43.9 [facility] Comment on above: Performed By: #### L 100.0100, L501.4021, L500.2500, L503.7505 ####[facility] [address] [place], [address] WBC (Bld) [#/Vol] 7.6 10*3/uL Normal 4.4-11.0 [facility] Comment on above: Performed By: #### L 100.0100, L501.4021, L500.2500, L503.7505 ####[facility] [address] [place], [address] Carbon dioxide, total [Moles /volume] in Central venous bloodOrdered By: Chris Ochoa on 03-04-2025 CO2 [Moles/Vol] 28.6 mmol/L 21.0-32.0 [facility] Chest PA and Lateralon 03-04 Chest PA and Lateral Normal [facility] Chloride assayOrdered By: Chino Ochoa on 03-04-2025 Chloride [Moles/Vol] 102 mmol/L 98-108 [facility] Echo Complete W/ Contraston 03-04-2025 Echo Complete W/ Contrast Normal [facility] Emergency Department Summary on 03-04-2025 Emergency Department Summary Normal [facility] Eosinophil percentageOrdered By: Chris Ochoa on 03-04-2025 Eosinophils/100 WBC (Bld) 1.6 % 0-5 [facility] Erythrocyte distribution wid th ratioOrdered By: Chris Ochoa on 03-04-2025 Erythrocyte distribution width (RBC) [Ratio] 16.5 % High 11.6-14.6 [facility] Erythrocyte distribution wid th standard deviationOrdered By: Chris Ochoa on 03-04-2025 Erythrocyte distribution width (RBC) [Ratio] 54.2 fl High 35.1-43.9 [facility] Glomerular filtration rate ( GFR) estimation/1.73 sq m using serum, plasma, or whole bOrdered By: Chris Ochoa on 03-04-2025 GFR/1.73 sq M.predicted among non-blacks MDRD (S/P/Bld) [Vol rate/Area] 36 mL/min/{1.73_m2} Low >60 [facility] Comment on above: mL/min/1.73m2 CKD-EP I Creatinine Equation (2020) H AND P Exam - [facility] 03-04-2025 H&P Exam - Hospitalist Normal [facility] Hematocrit Auto (Bld) [Volum e fraction]Ordered By: Chris Ochoa on 03-04-2025 Hematocrit (Bld) [Volume fraction] 33.4 % Low 40-54 [facility] Hemoglobin A1con 03-04-2025 HbA1c (Bld) [Mass fraction] 6.3 % High <=5.6 [facility] Comment on above: Result Comment: Norm al < 5.7 % Prediabetic 5.7 - 6.4 % Diabetic >or= 6.5 % Please note range changes. Performed By: #### L 501.5202, L501.9945, L501.9590 ####[facility] [address] [place], [address] Hemoglobin A1c percentageOrd ered By: Nicola Madison on 03-04-2025 HbA1c (Bld) [Mass fraction] 6.3 % High <5.7 [facility] Comment on above: Normal < 5.7 % Predi abetic 5.7 - 6.4 % Diabetic >or= 6.5 % Please note range changes. Hemoglobin measurementOrdere d By: Chris Ochoa on 03-04-2025 Hemoglobin (Bld) [Mass/Vol] 10.1 g/dL Low 13.0-16.5 [facility] Immature granulocytes/100 WB C Auto (Bld)Ordered By: Chris Ochoa on 03-04-2025 Immature granulocytes/100 WBC (Bld) 0.700 % 0.0-0.9 [facility] Comment on above: IG% - Immature Granu locytes (promyelocytes, myelocytes and metamyelocytes) > 1% indicates that a LEFT SHIFT is Present. Ketones Test strip Ql (U)Ord ered By: Nicola Madison on 03-04-2025 Ketones Ql (U) Negative Negative [facility] L499.0042on 03-04-2025 Trop T High Sen 45 ng/L High <=22 [facility] Comment on above: Performed By: #### L 499.0042 ####[facility] [address] [place], [address] L499.0043on 03-04-2025 Trop T High Sen 42 ng/L High <=22 [facility] Comment on above: Performed By: #### L 499.0043 ####[facility] [address] [place], [address] L501.4021on 03-04-2025 Trop T High Sen 44 ng/L High <=22 [facility] Comment on above: Performed By: #### L 100.0100, L501.4021, L500.2500, L503.7505 ####[facility] [address] [place], [address] L503.7505on 03-04-2025 Natriuretic peptide B (Bld) [Mass/Vol] 3316 pg/mL High <=1800 [facility] Comment on above: Result Comment: Hear t Failure Unlikely: < 300 pg/mLHeart Failure Likely< 50 Years: > 450 pg/mL50-75 Years: > 900 pg/mL>75 Years: > 1800 pg/mL Performed By: #### L 100.0100, L501.4021, L500.2500, L503.7505 ####[facility] [address] [facility] [place], [place], [address] MCV (mean corpuscular volume ) determinationOrdered By: Chris Ochoa on 03-04-2025 MCV (RBC) [Entitic vol] 89.3 fL 80-94 [facility] Magnesiumon 03-04-2025 Magnesium [Mass/Vol] 2.0 mg/dL Normal 1.5-2.2 [facility] Comment on above: Performed By: #### L 501.5200, L501.9985, L501.9508 ####[facility] [address] [facility] [place], [place], [address] Mean corpuscular hemoglobin (MCH) determinationOrdered By: Chris Ochoa on 03-04-2025 MCH (RBC) [Entitic mass] 27.0 pg 27.0-32.0 [facility] Mean corpuscular hemoglobin concentration (MCHC) determinationOrdered By: Chris Ochoa on 03-04-2025 MCHC (RBC) [Mass/Vol] 30.2 g/dL Low 32-36 [facility] Mean platelet volume determi nationOrdered By: Chris Ochoa on 03-04-2025 Platelet mean volume (Bld) [Entitic vol] 10.2 fL 6.2-12.0 [facility] Microscopic analysis of urin e for red blood cells (RBC)Ordered By: Nicola Madison on 03-04-2025 Microscopic analysis of urine for red blood cells (RBC) 5-10 SEEN /hpf 0-5 [facility] Monocyte percentageOrdered B y: Chris Ochoa on 03-04-2025 Monocytes/100 WBC (Bld) 9.1 % 0-10 [facility] Mucus LM Ql (Urine sed)Order ed By: Nicola Madison on 03-04-2025 Mucus Ql (Urine sed) 0 SEEN /hpf [facility] Natriuretic peptide.B prohor girish N-Terminal [Mass/volume] in Serum or PlasmaOrdered By: Chris Ochoa on 03-04-2025 Natriuretic peptide.B prohormone N-Terminal [Mass/Vol] 3316 pg/mL High <1800 [facility] Comment on above: Heart Failure Unlike ly: < 300 pg/mLHeart Failure Likely< 50 Years: > 450 pg/mL50-75 Years: > 900 pg/mL>75 Years: > 1800 pg/mL Neutrophil percentageOrdered By: Chris Ochoa on 03-04-2025 Neutrophils/100 WBC (Bld) 78.1 % High 47-70 [facility] Nitrite Test strip Ql (U)Ord ered By: Nicola Madison on 03-04-2025 Nitrite Ql (U) Positive High Negative [facility] Nucleated red blood cell per centageOrdered By: Chris Ochoa on 03-04-2025 Nucleated RBC/100 WBC (Bld) [Ratio] 0 % 0-5 [facility] Platelet countOrdered By: Chino Ochoa on 03-04-2025 Platelets (Bld) [#/Vol] 189 10*3/uL 150-450 [facility] Potassium measurement (mass/ volume)Ordered By: Chris Ochoa on 03-04-2025 Potassium (Unsp spec) [Mass/Vol] 5.2 mmol/L High 3.3-5.1 [facility] Protein Test strip Ql (U)Ord ered By: Nicola Madison on 03-04-2025 Protein Ql (U) 100 mg/dl High Negative [facility] RBC Auto (Bld) [#/Vol]Ordere d By: Chris Ochoa on 03-04-2025 RBC (Bld) [#/Vol] 3.74 10*6/uL Low 4.6-6.2 [facility] Serum creatinine measurement (mass/volume)Ordered By: Chris Ochoa on 03-04-2025 Creatinine [Mass/Vol] 1.86 mg/dL High 0.70-1.20 [facility] Serum glucose measurement (m ass/volume)Ordered By: Chris Ochoa on 03-04-2025 Glucose [Mass/Vol] 124 mg/dL High 70-99 [facility] Serum or plasma calcium kingsley urement (mass/volume)Ordered By: Chris Ochoa on 03-04-2025 Calcium [Mass/Vol] 9.3 mg/dL 7.6-11.0 [facility] Serum or plasma urea nitroge n measurement (mass/volume)Ordered By: Chris Ochoa on 03-04-2025 Urea nitrogen [Mass/Vol] 37 mg/dL High 4-19 [facility] Sodium levelOrdered By: Chris Ochoa on 03-04-2025 Sodium [Moles/Vol] 138 mmol/L 133-145 [facility] Squamous epithelial cells de tection in urine sediment by light microscopyOrdered By: Nicola Madison on 03-04-2025 Epithelial cells.squamous LM Ql (Urine sed) 0 SEEN /hpf 0-5 [facility] TSH DL <= 0.005 mIU/L QnOrde red By: Nicola Madison on 03-04-2025 TSH Qn 3.780 uIU/mL 0.300-4.20 0 [facility] Thyroid Stim Hormone (TSH)on 03-04-2025 TSH 3.780 uIU/mL Normal 0.300-4.20 0 [facility] Comment on above: Performed By: #### L 501.5200, L501.9985, L501.9520 ####[facility] [address] [place], [address] Troponin T.cardiac [Mass/vol ume] in Serum or Plasma by High sensitivity methodOrdered By: Chris Ochoa on 03-04-2025 Troponin T.cardiac High sensitivity method [Mass/Vol] 42 ng/L High <22 [facility] Troponin T.cardiac High sensitivity method [Mass/Vol] 45 ng/L High <22 [facility] Troponin T.cardiac High sensitivity method [Mass/Vol] 44 ng/L High <22 [facility] Urinalysis, Completeon 03-04 RBC 5-10 SEEN Normal 0-5 [facility] Comment on above: Order Comment: CLEAN CATCH Performed By: #### L 400.0001 ####[facility] [address] [place], [address] BACTERIA 2+ /hpf Normal None Seen [facility] Comment on above: Order Comment: CLEAN CATCH Performed By: #### L 400.0001 ####[facility] [address] [place], [place], [id number] WBC >100 SEEN Normal 0-5 [facility] Comment on above: Order Comment: CLEAN CATCH Performed By: #### L 400.0001 ####[facility] [address] [place], [address] EPI,SQUAMOUS 0 SEEN Normal 0-5 [facility] Comment on above: Order Comment: CLEAN CATCH Performed By: #### L 400.0001 ####[facility] [address] [place], [place], [id number] Mucus Ql (Urine sed) 0 SEEN Normal [facility] Comment on above: Order Comment: CLEAN CATCH Performed By: #### L 400.0001 ####[facility] [address] [place], [place], [id number] Urine clarityOrdered By: Jacob Madison on 03-04-2025 Clarity (U) Cloudy Clear [facility] Urine color determinationOrd ered By: Nicola Madison on 03-04-2025 Color (U) Yellow Yellow [facility] Urine glucose detectionOrder ed By: Nicola Madison on 03-04-2025 Glucose Ql (U) Normal mg/dl Normal [facility] Urine leukocyte esterase det ection by dipstickOrdered By: Nicola Madison on 03-04-2025 Leukocyte esterase Test strip Ql (U) 500 /ul High Negative [facility] Urine pHOrdered By: Nicola stack on 03-04-2025 pH (U) 6.5 [pH] 5.0 - 8.0 [facility] Urine sediment bacteria coun t by microscopy (number/high power field)Ordered By: Nicola Madison on 03-04-2025 Bacteria LM.HPF (Urine sed) [#/Area] 2 /[HPF] None Seen [facility] Urine specific gravity measu rementOrdered By: Nicola Madison on 03-04-2025 Specific gravity (U) [Rel density] 1.010 1.002-1.03 0 [facility] Urine urobilinogen measureme ntOrdered By: Nicola Madison on 03-04-2025 Urobilinogen Ql (U) Normal mg/dl Normal [facility] White blood cell (WBC) count Ordered By: Chris Ochoa on 03-04-2025 WBC (Bld) [#/Vol] 7.6 10*3/uL 4.4-11.0 [facility] White blood cell countOrdere d By: Nicola Madison on 03-04-2025 White blood cell count >100 SEEN /hpf 0-5 [facility] Absolute lymphocyte countOrd ered By: Russ Zamora on 11-06-2024 Lymphocytes Auto (Unsp spec) [#/Vol] 0.82 10*3/uL Low 0.83-4.51 [facility] Absolute neutrophil countOrd ered By: Russ Zamora on 11-06-2024 Neutrophils (Bld) [#/Vol] 8.1 10*3/uL High 2.0-7.7 [facility] Anion gap in Serum or Plasma Ordered By: Russ Zamora on 11-06-2024 Anion gap [Moles/Vol] 10 mmol/L 5-15 [facility] Automated lymphocyte count a s percentage of total leukocytesOrdered By: Russ Zamora on 11-06-2024 Lymphocytes/100 WBC Auto (Unsp spec) 8.1 % Low 19-41 [facility] BUN/creatinine ratioOrdered By: Russ Zamora on 11-06-2024 Urea nitrogen/Creatinine [Mass ratio] 19.3 mg/mg 10-20 [facility] Basophil percentageOrdered B y: Russ Zamora on 11-06-2024 Basophils/100 WBC (Bld) 0.3 % 0-1 [facility] Bilirubin, totalOrdered By: Russ Zamora on 11-06-2024 Bilirubin [Mass/Vol] 0.46 mg/dL 0.00-1.30 [facility] CBC W/Diff, Automatedon 10-19 Absolute Lymph 0.82 X10 3/uL Low 0.83-4.51 [facility] Comment on above: Performed By: #### L 500.4050, L504.2610, L100.0100 ####[facility] [address] [place], [address] Absolute Neut 8.1 X10 3/uL High 2.0-7.7 [facility] Comment on above: Performed By: #### L 500.4050, L504.2610, L100.0100 ####[facility] [address] [place], [address] Basophils/100 WBC (Bld) 0.3 % Normal 0-1 [facility] Comment on above: Performed By: #### L 500.4050, L504.2610, L100.0100 ####[facility] [address] [place], [address] Eosinophils/100 WBC (Bld) 1.7 % Normal 0-5 [facility] Comment on above: Performed By: #### L 500.4050, L504.2610, L100.0100 ####[facility] [address] [place], [address] Erythrocyte distribution width (RBC) [Ratio] 16.8 % High 11.6-14.6 [facility] Comment on above: Performed By: #### L 500.4050, L504.2610, L100.0100 ####[facility] [address] [place], [address] Hematocrit (Bld) [Volume fraction] 34.2 % Low 40-54 [facility] Comment on above: Performed By: #### L 500.4050, L504.2610, L100.0100 ####[facility] [address] [place], [address] Hemoglobin (Bld) [Mass/Vol] 10.7 g/dL Low 13.0-16.5 [facility] Comment on above: Performed By: #### L 500.4050, L504.2610, L100.0100 ####[facility] [address] [place], [address] IG% 0.500 Normal 0.0-0.9 [facility] Comment on above: Result Comment: IG% - Immature Granulocytes (promyelocytes, myelocytes andmetamyelocytes) > 1% indicates that a LEFT SHIFT is Present. Performed By: #### L 500.4050, L504.2610, L100.0100 ####[facility] [address] [place], [address] Lymphocytes/100 WBC (Bld) 8.1 % Low 19-41 [facility] Comment on above: Performed By: #### L 500.4050, L504.2610, L100.0100 ####[facility] [address] [place], [address] MCH (RBC) [Entitic mass] 27.4 pg Normal 27.0-32.0 [facility] Comment on above: Performed By: #### L 500.4050, L504.2610, L100.0100 ####[facility] [address] [place], [address] MCHC (RBC) [Mass/Vol] 31.3 g/dL Low 32-36 [facility] Comment on above: Performed By: #### L 500.4050, L504.2610, L100.0100 ####[facility] [address] [place], [address] MCV (RBC) [Entitic vol] 87.5 fL Normal 80-94 [facility] Comment on above: Performed By: #### L 500.4050, L504.2610, L100.0100 ####[facility] [address] [place], [address] Monocytes/100 WBC (Bld) 8.8 % Normal 0-10 [facility] Comment on above: Performed By: #### L 500.4050, L504.2610, L100.0100 ####[facility] [address] [place], [address] Neutrophils/100 WBC (Bld) 80.6 % High 47-70 [facility] Comment on above: Performed By: #### L 500.4050, L504.2610, L100.0100 ####[facility] [address] [place], [address] Nucleated RBC (Bld) [#/Vol] 0 10*3/uL Normal 0-5 [facility] Comment on above: Performed By: #### L 500.4050, L504.2610, L100.0100 ####[facility] [address] [place], [address] Platelet mean volume (Bld) [Entitic vol] 10.4 fL Normal 6.2-12.0 [facility] Comment on above: Performed By: #### L 500.4050, L504.2610, L100.0100 ####[facility] [address] [place], [address] Platelets (Bld) [#/Vol] 212 10*3/uL Normal 150-450 [facility] Comment on above: Performed By: #### L 500.4050, L504.2610, L100.0100 ####[facility] [address] [place], [address] RBC (Bld) [#/Vol] 3.91 10*6/uL Low 4.6-6.2 [facility] Comment on above: Performed By: #### L 500.4050, L504.2610, L100.0100 ####[facility] [address] [place], [address] RDW SD 53.5 fl High 35.1-43.9 [facility] Comment on above: Performed By: #### L 500.4050, L504.2610, L100.0100 ####[facility] [address] [place], [address] WBC (Bld) [#/Vol] 10.1 10*3/uL Normal 4.4-11.0 [facility] Comment on above: Performed By: #### L 500.4050, L504.2610, L100.0100 ####[facility] [address] [place], [address] Carbon dioxide, total [Moles /volume] in Central venous bloodOrdered By: Russ Zamora on 11-06-2024 CO2 [Moles/Vol] 25.2 mmol/L 21.0-32.0 [facility] Chloride assayOrdered By: Flores Zamora on 11-06-2024 Chloride [Moles/Vol] 105 mmol/L 98-108 [facility] Comprehensive Metabolic Prof ilon 11-06-2024 Albumin [Mass/Vol] 3.8 g/dL Normal 3.4-4.8 [facility] Comment on above: Performed By: #### L 500.4050, L504.2610, L100.0100 ####[facility] [address] [place], [address] Albumin/Globulin [Mass ratio] 0.9 {ratio} Normal 0.9-2.4 [facility] Comment on above: Performed By: #### L 500.4050, L504.2610, L100.0100 ####[facility] [address] [place], [address] ALK PHOS 72 U/L Normal 40-129 [facility] Comment on above: Performed By: #### L 500.4050, L504.2610, L100.0100 ####[facility] [address] [place], [address] ALT [Catalytic activity/Vol] 10 U/L Normal <=46 [facility] Comment on above: Performed By: #### L 500.4050, L504.2610, L100.0100 ####[facility] [address] [place], [address] AST [Catalytic activity/Vol] 16 U/L Normal <=37 [facility] Comment on above: Performed By: #### L 500.4050, L504.2610, L100.0100 ####[facility] [address] [place], [address] Bilirubin [Mass/Vol] 0.46 mg/dL Normal 0.00-1.30 [facility] Comment on above: Performed By: #### L 500.4050, L504.2610, L100.0100 ####[facility] [address] [place], [address] BUN/CRE 19.3 RATIO Normal 10-20 [facility] Comment on above: Performed By: #### L 500.4050, L504.2610, L100.0100 ####[facility] [address] [place], [address] Calcium [Mass/Vol] 9.1 mg/dL Normal 7.6-11.0 [facility] Comment on above: Performed By: #### L 500.4050, L504.2610, L100.0100 ####[facility] [address] [place], [address] Chloride [Moles/Vol] 105 mmol/L Normal 98-108 [facility] Comment on above: Performed By: #### L 500.4050, L504.2610, L100.0100 ####[facility] [address] [place], [address] CO2 [Moles/Vol] 25.2 mmol/L Normal 21.0-32.0 [facility] Comment on above: Performed By: #### L 500.4050, L504.2610, L100.0100 ####[facility] [address] [place], [address] Creatinine [Mass/Vol] 1.87 mg/dL High 0.70-1.20 [facility] Comment on above: Performed By: #### L 500.4050, L504.2610, L100.0100 ####[facility] [address] [place], [address] ECRCL 32.00 ml/min Low 50-250 [facility] Comment on above: Performed By: #### L 500.4050, L504.2610, L100.0100 ####[facility] [address] [place], [address] GAP 10 Normal 5-15 [facility] Comment on above: Performed By: #### L 500.4050, L504.2610, L100.0100 ####[facility] [address] [place], [address] GFR/1.73 sq M.predicted among non-blacks MDRD (S/P/Bld) [Vol rate/Area] 36 mL/min/{1.73_m2} Low >60 [facility] Comment on above: Result Comment: mL/m in/1.73m2 CKD-EPI Creatinine Equation (2020) Performed By: #### L 500.4050, L504.2610, L100.0100 ####[facility] [address] [place], [address] Globulin (S) [Mass/Vol] 4.1 g/dL Normal 2.2-4.2 [facility] Comment on above: Performed By: #### L 500.4050, L504.2610, L100.0100 ####[facility] [address] [place], [address] Glucose [Mass/Vol] 132 mg/dL High 70-99 [facility] Comment on above: Performed By: #### L 500.4050, L504.2610, L100.0100 ####[facility] [address] [place], [address] Potassium [Moles/Vol] 4.8 mmol/L Normal 3.3-5.1 [facility] Comment on above: Performed By: #### L 500.4050, L504.2610, L100.0100 ####[facility] [address] [place], [address] Sodium [Moles/Vol] 140 mmol/L Normal 133-145 [facility] Comment on above: Performed By: #### L 500.4050, L504.2610, L100.0100 ####[facility] [address] [place], [address] T PROT 7.9 g/dL Normal 5.9-8.4 [facility] Comment on above: Performed By: #### L 500.4050, L504.2610, L100.0100 ####[facility] [address] [place], [address] Urea nitrogen [Mass/Vol] 36 mg/dL High 4-19 [facility] Comment on above: Performed By: #### L 500.4050, L504.2610, L100.0100 ####[facility] [address] [place], [address] Eosinophil percentageOrdered By: Russ Zamora on 11-06-2024 Eosinophils/100 WBC (Bld) 1.7 % 0-5 [facility] Erythrocyte distribution wid th ratioOrdered By: Russ Zamora on 11-06-2024 Erythrocyte distribution width (RBC) [Ratio] 16.8 % High 11.6-14.6 [facility] Erythrocyte distribution wid th standard deviationOrdered By: Russ Zamora on 11-06-2024 Erythrocyte distribution width (RBC) [Entitic vol] 53.5 fL High 35.1-43.9 [facility] Erythrocyte distribution width (RBC) [Ratio] 53.5 fl High 35.1-43.9 [facility] Estimation of creatinine rowdy aranceOrdered By: Russ Zamora on 11-06-2024 Estimated Creatinine Clearance Calc 32.00 ml/min Low 50-250 [facility] GFR/1.73 sq M.predicted kaylyn g non-blacks MDRD (S/P/Bld) [Vol rate/Area]Ordered By: Russ Zamora on 11-06-2024 Estimated GFR (MDRD) Non-Af Amer 36 Low >60 [facility] Comment on above: mL/min/1.73m2 CKD-EP I Creatinine Equation (2020) Glomerular filtration rate ( GFR) estimation/1.73 sq m using serum, plasma, or whole bOrdered By: Russ Zamora on 11-06-2024 GFR/1.73 sq M.predicted among non-blacks MDRD (S/P/Bld) [Vol rate/Area] 36 mL/min/{1.73_m2} Low >60 [facility] Comment on above: mL/min/1.73m2 CKD-EP I Creatinine Equation (2020) Hematocrit Auto (Bld) [Volum e fraction]Ordered By: Russ Zamora on 11-06-2024 Hematocrit (Bld) [Volume fraction] 34.2 % Low 40-54 [facility] Hemoglobin measurementOrdere d By: Russ Zamora on 11-06-2024 Hemoglobin (Bld) [Mass/Vol] 10.7 g/dL Low 13.0-16.5 [facility] Immature granulocytes/100 WB C Auto (Bld)Ordered By: Russ Zamora on 11-06-2024 Immature granulocytes/100 WBC (Bld) 0.500 % 0.0-0.9 [facility] Comment on above: IG% - Immature Granu locytes (promyelocytes, myelocytes and metamyelocytes) > 1% indicates that a LEFT SHIFT is Present. LDHon 11-06-2024 LDH 135 U/L Normal 87-241 [facility] Comment on above: Order Comment: 1 Performed By: #### L 500.4050, L504.2610, L100.0100 ####[facility] [address] [place], [address] Laboratory - Chemistry and C hemistry - challengeOrdered By: Russ Zamora on 11-06-2024 AST [Catalytic activity/Vol] 16 U/L <38 [facility] Lactate dehydrogenase (LDH) measurementOrdered By: Russ Zamora on 11-06-2024 LDH [Catalytic activity/Vol] 135 U/L 87-241 [facility] Lymphocytes Auto (Unsp spec) [#/Vol]Ordered By: Russ Zamora on 11-06-2024 Lymphocytes (Bld) [#/Vol] 0.82 10*3/uL Low 0.83-4.51 [facility] Lymphocytes/100 WBC Auto (Un sp spec)Ordered By: Russ Zamora on 11-06-2024 Lymphocytes/100 WBC (Bld) 8.1 % Low 19-41 [facility] MCV (mean corpuscular volume ) determinationOrdered By: Russ Zamora on 11-06-2024 MCV (RBC) [Entitic vol] 87.5 fL 80-94 [facility] Mean corpuscular hemoglobin (MCH) determinationOrdered By: Russ Zamora on 11-06-2024 MCH (RBC) [Entitic mass] 27.4 pg 27.0-32.0 [facility] Mean corpuscular hemoglobin concentration (MCHC) determinationOrdered By: Russ Zaomra on 11-06-2024 MCHC (RBC) [Mass/Vol] 31.3 g/dL Low 32-36 [facility] Mean platelet volume determi nationOrdered By: Russ Zamora on 11-06-2024 Platelet mean volume (Bld) [Entitic vol] 10.4 fL 6.2-12.0 [facility] Monocyte percentageOrdered B y: Russ Zamora on 11-06-2024 Monocytes/100 WBC (Bld) 8.8 % 0-10 [facility] Neutrophil percentageOrdered By: Russ Zamora on 11-06-2024 Neutrophils/100 WBC (Bld) 80.6 % High 47-70 [facility] Nucleated red blood cell per centageOrdered By: Russ Zamora on 11-06-2024 Nucleated RBC/100 WBC (Bld) [Ratio] 0 % 0-5 [facility] Oncology Visit Reporton 10-19 0 Oncology Visit Report Normal [facility] Platelet countOrdered By: Flores Zamora on 11-06-2024 Platelets (Bld) [#/Vol] 212 10*3/uL 150-450 [facility] Potassium (Unsp spec) [Mass/ Vol]Ordered By: Russ Zamora on 11-06-2024 Potassium [Moles/Vol] 4.8 mmol/L 3.3-5.1 [facility] Potassium measurement (mass/ volume)Ordered By: Russ Zamora on 11-06-2024 Potassium (Unsp spec) [Mass/Vol] 4.8 mmol/L 3.3-5.1 [facility] RBC Auto (Bld) [#/Vol]Ordere d By: Russ Zamora on 11-06-2024 RBC (Bld) [#/Vol] 3.91 10*6/uL Low 4.6-6.2 [facility] Serum creatinine measurement (mass/volume)Ordered By: Russ Zamora on 11-06-2024 Creatinine [Mass/Vol] 1.87 mg/dL High 0.70-1.20 [facility] Serum globulin measurementOr dered By: Russ Zamora on 11-06-2024 Globulin (S) [Mass/Vol] 4.1 g/dL 2.2-4.2 [facility] Serum glucose measurement (m ass/volume)Ordered By: Russ Zamora on 11-06-2024 Glucose [Mass/Vol] 132 mg/dL High 70-99 [facility] Serum or plasma alanine ortiz otransferase (ALT) measurementOrdered By: Russ Zamora on 11-06-2024 ALT [Catalytic activity/Vol] 10 U/L <47 [facility] Serum or plasma albumin kingsley urement (mass/volume)Ordered By: Russ Zamora on 11-06-2024 Albumin [Mass/Vol] 3.8 g/dL 3.4-4.8 [facility] Serum or plasma albumin/glob ulin mass ratioOrdered By: Russ Zamora on 11-06-2024 Albumin/Globulin [Mass ratio] 0.9 {ratio} 0.9-2.4 [facility] Serum or plasma alkaline roosevelt sphatase measurementOrdered By: Russ Zamora on 11-06-2024 ALP [Catalytic activity/Vol] 72 U/L 40-129 [facility] Serum or plasma calcium kingsley urement (mass/volume)Ordered By: Russ Zamora on 11-06-2024 Calcium [Mass/Vol] 9.1 mg/dL 7.6-11.0 [facility] Serum or plasma urea nitroge n measurement (mass/volume)Ordered By: Russ Zamora on 11-06-2024 Urea nitrogen [Mass/Vol] 36 mg/dL High 4-19 [facility] Sodium levelOrdered By: Esau Zamora on 11-06-2024 Sodium [Moles/Vol] 140 mmol/L 133-145 [facility] Total proteinOrdered By: Frantz Zamora on 11-06-2024 Protein [Mass/Vol] 7.9 g/dL 5.9-8.4 [facility] White blood cell (WBC) count Ordered By: Russ Zamora on 11-06-2024 WBC (Bld) [#/Vol] 10.1 10*3/uL 4.4-11.0 [facility] CREATININE FINGERSTICKon Creatinine [Mass/Vol] 1.5 mg/dL High 0.70-1.30 [facility] Comment on above: Performed By: #### L 9100.0200 ####[facility] [address] [place], [place], [id number] GFR/1.73 sq M.predicted among non-blacks MDRD (S/P/Bld) [Vol rate/Area] 48.0000 mL/min/{1.73_m2} Low >60 [facility] Comment on above: Performed By: #### L 9100.0200 ####[facility] [address] [place], [place], [id number] CT Chest AND Abd W/ Contrast on 10-30-2024 CT Chest AND Abd W/ Contrast Normal [facility] Creatinine measurement at dsideOrdered By: Russ Zamora on 10-30-2024 Creatinine [Mass/Vol] 1.5 mg/dL High 0.70-1.30 [facility] EGFROrdered By: Russ Zamora on 10-30-2024 GFR/1.73 sq M.predicted among non-blacks MDRD (S/P/Bld) [Vol rate/Area] 48.0000 mL/min/{1.73_m2} Low >60 [facility] Pulmonary Visit Reporton Pulmonary Visit Report Normal [facility] Hemoglobin A1con 10-21-2024 HbA1c (Bld) [Mass fraction] 6.6 % Normal <=5.6 [facility] Comment on above: Performed By: #### L 501.9985 ####[facility] [address] [place], [address] Hemoglobin A1c percentageOrd ered By: Tonio Fajardo on 10-20-2024 HbA1c (Bld) [Mass fraction] 6.6 % >5.7 [facility] 6 Minute Walk Teston 025 6 Minute Walk Test Normal [facility] Absolute neutrophil countOrd ered By: Leslie Arriaga on 09-25-2024 Neutrophils (Bld) [#/Vol] 6.7 10*3/uL 2.0-7.7 [facility] BNP (brain natriuretic pepti de measurement)Ordered By: Leslie Arriaga on 09-25-2024 Natriuretic peptide B (Bld) [Mass/Vol] 183.7 pg/mL High 0-100 [facility] BNP,B-Type NATRIURETIC PEPTI Adrienne 09-25-2024 Natriuretic peptide B (Bld) [Mass/Vol] 183.7 pg/mL High 0-100 [facility] Comment on above: Performed By: #### L 500.2500, L100.0100, L503.6620 ####[facility] [address] [place], [address] Basic Metabolic Profile (BMP )on 09-25-2024 BUN/CRE 15.4 RATIO Normal 10-20 [facility] Comment on above: Performed By: #### L 500.2500, L100.0100, L503.6620 ####[facility] [address] [place], [address] CA,Total 9.1 mg/dL Normal 8.5-10.1 [facility] Comment on above: Performed By: #### L 500.2500, L100.0100, L503.6620 ####[facility] [address] [place], [address] Chloride [Moles/Vol] 105 mmol/L Normal 98-107 [facility] Comment on above: Performed By: #### L 500.2500, L100.0100, L503.6620 ####[facility] [address] [place], [address] CO2 [Moles/Vol] 28.0 mmol/L Normal 21.0-32.0 [facility] Comment on above: Performed By: #### L 500.2500, L100.0100, L503.6620 ####[facility] [address] [place], [address] Creatinine [Mass/Vol] 2.21 mg/dL High 0.70-1.30 [facility] Comment on above: Result Comment: The validity of the calculated GFR GFRAA in patients over70 years has not been determined. Clinical correlation isessential. Performed By: #### L 500.2500, L100.0100, L503.6620 ####[facility] [address] [place], [address] EST GFR - AA 37 mL/min Low >60 [facility] Comment on above: Result Comment: Afri can Tunisian GFR Calc Performed By: #### L 500.2500, L100.0100, L503.6620 ####[facility] [address] [place], [address] GAP 5 Normal 5-15 [facility] Comment on above: Performed By: #### L 500.2500, L100.0100, L503.6620 ####[facility] [address] [place], [address] GFR/1.73 sq M.predicted among non-blacks MDRD (S/P/Bld) [Vol rate/Area] 31 mL/min/{1.73_m2} Low >60 [facility] Comment on above: Result Comment: Non- GFR Calc Performed By: #### L 500.2500, L100.0100, L503.6620 ####[facility] [address] [place], [address] Glucose [Mass/Vol] 127 mg/dL High 74-106 [facility] Comment on above: Result Comment: Fast ing Glucose result greater than or equal to 126 mg/dLsuggests DIABETES MELLITUS per A.D.A. criteria. Performed By: #### L 500.2500, L100.0100, L503.6620 ####[facility] [address] [place], [address] Potassium [Moles/Vol] 4.3 mmol/L Normal 3.5-5.1 [facility] Comment on above: Performed By: #### L 500.2500, L100.0100, L503.6620 ####[facility] [address] [place], [address] Sodium [Moles/Vol] 138 mmol/L Normal 136-145 [facility] Comment on above: Performed By: #### L 500.2500, L100.0100, L503.6620 ####[facility] [address] [place], [address] Urea nitrogen [Mass/Vol] 34 mg/dL High 7-18 [facility] Comment on above: Performed By: #### L 500.2500, L100.0100, L503.6620 ####[facility] [address] [place], [address] Basophil percentageOrdered B y: Leslie Arriaga on 09-25-2024 Basophils/100 WBC (Bld) 0.6 % 0-1 [facility] Blood urea nitrogen (BUN)/cr eatinine ratioOrdered By: Leslie Arriaga on 09-25-2024 Urea nitrogen/Creatinine [Mass ratio] 15.4 mg/mg 10-20 [facility] CBC W/Diff, Automatedon Absolute Lymph 0.91 X10 3/uL Normal 0.83-4.51 [facility] Comment on above: Performed By: #### L 500.2500, L100.0100, L503.6620 ####[facility] [address] [place], [address] Absolute Neut 6.7 X10 3/uL Normal 2.0-7.7 [facility] Comment on above: Performed By: #### L 500.2500, L100.0100, L503.6620 ####[facility] [address] [place], [address] Basophils/100 WBC (Bld) 0.6 % Normal 0-1 [facility] Comment on above: Performed By: #### L 500.2500, L100.0100, L503.6620 ####[facility] [address] [place], [address] Eosinophils/100 WBC (Bld) 1.1 % Normal 0-5 [facility] Comment on above: Performed By: #### L 500.2500, L100.0100, L503.6620 ####[facility] [address] [place], [address] Erythrocyte distribution width (RBC) [Ratio] 16.2 % High 11.6-14.6 [facility] Comment on above: Performed By: #### L 500.2500, L100.0100, L503.6620 ####[facility] [address] [place], [address] Hematocrit (Bld) [Volume fraction] 36.0 % Low 40-54 [facility] Comment on above: Performed By: #### L 500.2500, L100.0100, L503.6620 ####[facility] [address] [place], [address] Hemoglobin (Bld) [Mass/Vol] 11.1 g/dL Low 13.0-16.5 [facility] Comment on above: Performed By: #### L 500.2500, L100.0100, L503.6620 ####[facility] [address] [place], [address] IG% 0.700 Normal 0.0-0.9 [facility] Comment on above: Result Comment: IG% - Immature Granulocytes (promyelocytes, myelocytes andmetamyelocytes) > 1% indicates that a LEFT SHIFT is Present. Performed By: #### L 500.2500, L100.0100, L503.6620 ####[facility] [address] [place], [address] Lymphocytes/100 WBC (Bld) 10.4 % Low 19-41 [facility] Comment on above: Performed By: #### L 500.2500, L100.0100, L503.6620 ####[facility] [address] [place], [address] MCH (RBC) [Entitic mass] 27.7 pg Normal 27.0-32.0 [facility] Comment on above: Performed By: #### L 500.2500, L100.0100, L503.6620 ####[facility] [address] [place], [address] MCHC (RBC) [Mass/Vol] 30.8 g/dL Low 32-36 [facility] Comment on above: Performed By: #### L 500.2500, L100.0100, L503.6620 ####[facility] [address] [place], [address] MCV (RBC) [Entitic vol] 89.8 fL Normal 80-94 [facility] Comment on above: Performed By: #### L 500.2500, L100.0100, L503.6620 ####[facility] [address] [place], [address] Monocytes/100 WBC (Bld) 10.3 % High 0-10 [facility] Comment on above: Performed By: #### L 500.2500, L100.0100, L503.6620 ####[facility] [address] [place], [address] Neutrophils/100 WBC (Bld) 76.9 % High 47-70 [facility] Comment on above: Performed By: #### L 500.2500, L100.0100, L503.6620 ####[facility] [address] [place], [address] Nucleated RBC (Bld) [#/Vol] 0 10*3/uL Normal 0-5 [facility] Comment on above: Performed By: #### L 500.2500, L100.0100, L503.6620 ####[facility] [address] [place], [address] Platelet mean volume (Bld) [Entitic vol] 10.5 fL Normal 6.2-12.0 [facility] Comment on above: Performed By: #### L 500.2500, L100.0100, L503.6620 ####[facility] [address] [place], [address] Platelets (Bld) [#/Vol] 256 10*3/uL Normal 150-450 [facility] Comment on above: Performed By: #### L 500.2500, L100.0100, L503.6620 ####[facility] [address] [place], [address] RBC (Bld) [#/Vol] 4.01 10*6/uL Low 4.6-6.2 [facility] Comment on above: Performed By: #### L 500.2500, L100.0100, L503.6620 ####[facility] [address] [place], [address] RDW SD 52.7 fl High 35.1-43.9 [facility] Comment on above: Performed By: #### L 500.2500, L100.0100, L503.6620 ####[facility] [address] [place], [address] WBC (Bld) [#/Vol] 8.7 10*3/uL Normal 4.4-11.0 [facility] Comment on above: Performed By: #### L 500.2500, L100.0100, L503.6620 ####[facility] [address] [place], [address] Carbon dioxide measurementOr dered By: Leslie Arriaga on 09-25-2024 CO2 [Moles/Vol] 28.0 mmol/L 21.0-32.0 [facility] Cardiology Visit Reporton Cardiology Visit Report Normal [facility] Chest PA and Lateralon 09-25 Chest PA and Lateral Normal [facility] Chloride measurementOrdered By: Leslie Arriaga on 09-25-2024 Chloride [Moles/Vol] 105 mmol/L 98-107 [facility] Eosinophil percentageOrdered By: Leslie Arriaga on 09-25-2024 Eosinophils/100 WBC (Bld) 1.1 % 0-5 [facility] Erythrocyte distribution wid th ratioOrdered By: Leslie Arriaga on 09-25-2024 Erythrocyte distribution width (RBC) [Ratio] 16.2 % High 11.6-14.6 [facility] Erythrocyte distribution wid th standard deviationOrdered By: Leslie Arriaga on 09-25-2024 Erythrocyte distribution width (RBC) [Entitic vol] 52.7 fL High 35.1-43.9 [facility] Estimated glomerular filtrat ion rate (GFR) AmericanOrdered By: Leslie Arriaga on 09-25-2024 Estimated GFR (MDRD) Amer 37 mL/min Low >60 [facility] Comment on above: GFR Calc Glomerular filtration rate ( GFR) estimationOrdered By: Leslie Arriaga on 09-25-2024 Estimated GFR (MDRD) Non-Af Amer 31 mL/min Low >60 [facility] Comment on above: Non- GFR Calc Glucose measurementOrdered B y: Leslie Arriaga on 09-25-2024 Glucose [Mass/Vol] 127 mg/dL High 74-106 [facility] Comment on above: Fasting Glucose resu lt greater than or equal to 126 mg/dL suggests DIABETES MELLITUS per A.D.A. criteria. Hematocrit Auto (Bld) [Volum e fraction]Ordered By: Leslie Arriaga on 09-25-2024 Hematocrit (Bld) [Volume fraction] 36.0 % Low 40-54 [facility] Hemoglobin measurementOrdere d By: Leslie Arriaga on 09-25-2024 Hemoglobin (Bld) [Mass/Vol] 11.1 g/dL Low 13.0-16.5 [facility] Immature granulocytes/100 WB C Auto (Bld)Ordered By: Leslie Arriaga on 09-25-2024 Immature granulocytes/100 WBC (Bld) 0.700 % 0.0-0.9 [facility] Comment on above: IG% - Immature Granu locytes (promyelocytes, myelocytes and metamyelocytes) > 1% indicates that a LEFT SHIFT is Present. Lymphocytes Auto (Unsp spec) [#/Vol]Ordered By: Leslie Arriaga on 09-25-2024 Lymphocytes (Bld) [#/Vol] 0.91 10*3/uL 0.83-4.51 [facility] Lymphocytes/100 WBC Auto (Un sp spec)Ordered By: Leslie Arriaga on 09-25-2024 Lymphocytes/100 WBC (Bld) 10.4 % Low 19-41 [facility] MCV (mean corpuscular volume ) determinationOrdered By: Leslie Arriaga on 09-25-2024 MCV (RBC) [Entitic vol] 89.8 fL 80-94 [facility] Mean corpuscular hemoglobin (MCH) determinationOrdered By: Leslie Arriaga on 09-25-2024 MCH (RBC) [Entitic mass] 27.7 pg 27.0-32.0 [facility] Mean corpuscular hemoglobin concentration (MCHC) determinationOrdered By: Leslie Arriaga on 09-25-2024 MCHC (RBC) [Mass/Vol] 30.8 g/dL Low 32-36 [facility] Mean platelet volume determi nationOrdered By: Leslie Arriaga on 09-25-2024 Platelet mean volume (Bld) [Entitic vol] 10.5 fL 6.2-12.0 [facility] Monocyte percentageOrdered B y: Leslie Arriaga on 09-25-2024 Monocytes/100 WBC (Bld) 10.3 % High 0-10 [facility] Neutrophil percentageOrdered By: Leslie Arriaga on 09-25-2024 Neutrophils/100 WBC (Bld) 76.9 % High 47-70 [facility] Nucleated red blood cell per centageOrdered By: Leslie Arriaga on 09-25-2024 Nucleated RBC/100 WBC (Bld) [Ratio] 0 % 0-5 [facility] Platelet countOrdered By: Linsey Arriaga on 09-25-2024 Platelets (Bld) [#/Vol] 256 10*3/uL 150-450 [facility] Potassium measurementOrdered By: Leslie Arriaga on 09-25-2024 Potassium [Moles/Vol] 4.3 mmol/L 3.5-5.1 [facility] RBC Auto (Bld) [#/Vol]Ordere d By: Leslie Arriaga on 09-25-2024 RBC (Bld) [#/Vol] 4.01 10*6/uL Low 4.6-6.2 [facility] Serum anion gap measurementO rdered By: Leslie Arriaga on 09-25-2024 Anion gap [Moles/Vol] 5 mmol/L 5-15 [facility] Serum or plasma calcium kingsley urement (mass/volume)Ordered By: Leslie Arriaga on 09-25-2024 Calcium [Mass/Vol] 9.1 mg/dL 8.5-10.1 [facility] Serum or plasma creatinine m easurement (mass/volume)Ordered By: Leslie Arriaga on 09-25-2024 Creatinine [Mass/Vol] 2.21 mg/dL High 0.70-1.30 [facility] Comment on above: The validity of the calculated GFR & GFRAA in patients over 70 years has not been determined. Clinical correlation is essential. Serum or plasma urea nitroge n measurement (mass/volume)Ordered By: Leslie Arriaga on 09-25-2024 Urea nitrogen [Mass/Vol] 34 mg/dL High 7-18 [facility] Sodium levelOrdered By: Brian Arriaga on 09-25-2024 Sodium [Moles/Vol] 138 mmol/L 136-145 [facility] White blood cell (WBC) count Ordered By: Leslie Arriaga on 09-25-2024 WBC (Bld) [#/Vol] 8.7 10*3/uL 4.4-11.0 [facility] Culture, Fungus 8482on 08-04 CUF Normal [facility] Comment on above: Performed By: #### M 600.2000, M100.4001, M100.1999, M100.3000 ####[facility] [address] [place], [address] Culture, Anaerobic [facility] CUAN Prevotella and Porphyromonas species are generally SUSCEPTIBLE to Cefoxitin, Chloramphenicol, and Metronidazole and are usually RESISTANT to Penicillin. Prevotella oralis Beta Lactamase-Reportable Positive [facility] Comment on above: Performed By: #### M 600.2000, M100.4001, M100.2000, M100.3000 ####[facility] [address] [place], [address] Wound Cultureon 07-05-2024 WC [facility] Comment on above: Performed By: #### M 600.2000, M100.4001, M100.2000, M100.3000 ####[facility] [address] [place], [address] Gram Stainon 07-04-2024 GS Positive Normal [facility] Comment on above: Performed By: #### M 600.2000, M100.4001, M100.2000, M100.3000 ####[facility] [address] [place], [address] Bacteria identified Anaer cx Nom (Unsp spec)Ordered By: Joaquim Suárez on 07-03-2024 Anaerobic Culture Prevotella oralis Abnormal [facility] Fungus identified Cx Nom (Un sp spec)Ordered By: Joaquim Suárez on 07-03-2024 Fungal Culture Ann-Marie parapsilosis Abnormal [facility] Gram stainOrdered By: Bladimir Suárez on 07-03-2024 Microscopic observation Gram stain Nom (Unsp spec) [facility] Routine wound cultureOrdered By: Joaquim Suárez on 07-03-2024 Wound Culture Staphylococcus pseudintermediu Abnormal [facility] Lower Ext Art Exam w/o Exerc soco 06-17-2024 Lower Ext Art Exam w/o Exercis Normal [facility] Venous Duplex US - Hi Extre mon 06-17-2024 Venous Duplex US - Hi Extrem Normal [facility] CBC W/Diff, Automatedon 04-20 Absolute Lymph 0.94 X10 3/uL Normal 0.83-4.51 [facility] Comment on above: Performed By: #### L 100.0100, L504.2610, L500.4050 ####[facility] [address] [place], [address] Absolute Neut 5.7 X10 3/uL Normal 2.0-7.7 [facility] Comment on above: Performed By: #### L 100.0100, L504.2610, L500.4050 ####[facility] [address] [place], [address] Basophils/100 WBC (Bld) 0.6 % Normal 0-1 [facility] Comment on above: Performed By: #### L 100.0100, L504.2610, L500.4050 ####[facility] [address] [place], [address] Eosinophils/100 WBC (Bld) 2.5 % Normal 0-5 [facility] Comment on above: Performed By: #### L 100.0100, L504.2610, L500.4050 ####[facility] [address] [place], [address] Erythrocyte distribution width (RBC) [Ratio] 16.3 % High 11.6-14.6 [facility] Comment on above: Performed By: #### L 100.0100, L504.2610, L500.4050 ####[facility] [address] [place], [address] Hematocrit (Bld) [Volume fraction] 36.9 % Low 40-54 [facility] Comment on above: Performed By: #### L 100.0100, L504.2610, L500.4050 ####[facility] [address] [place], [address] Hemoglobin (Bld) [Mass/Vol] 11.3 g/dL Low 13.0-16.5 [facility] Comment on above: Performed By: #### L 100.0100, L504.2610, L500.4050 ####[facility] [address] [place], [address] IG% 1.400 High 0.0-0.9 [facility] Comment on above: Result Comment: IG% - Immature Granulocytes (promyelocytes, myelocytes andmetamyelocytes) > 1% indicates that a LEFT SHIFT is Present. Performed By: #### L 100.0100, L504.2610, L500.4050 ####[facility] [address] [place], [address] Lymphocytes/100 WBC (Bld) 11.8 % Low 19-41 [facility] Comment on above: Performed By: #### L 100.0100, L504.2610, L500.4050 ####[facility] [address] [place], [address] MCH (RBC) [Entitic mass] 27.2 pg Normal 27.0-32.0 [facility] Comment on above: Performed By: #### L 100.0100, L504.2610, L500.4050 ####[facility] [address] [place], [address] MCHC (RBC) [Mass/Vol] 30.6 g/dL Low 32-36 [facility] Comment on above: Performed By: #### L 100.0100, L504.2610, L500.4050 ####[facility] [address] [place], [address] MCV (RBC) [Entitic vol] 88.7 fL Normal 80-94 [facility] Comment on above: Performed By: #### L 100.0100, L504.2610, L500.4050 ####[facility] [address] [place], [address] Monocytes/100 WBC (Bld) 11.6 % High 0-10 [facility] Comment on above: Performed By: #### L 100.0100, L504.2610, L500.4050 ####[facility] [address] [place], [address] Neutrophils/100 WBC (Bld) 72.1 % High 47-70 [facility] Comment on above: Performed By: #### L 100.0100, L504.2610, L500.4050 ####[facility] [address] [place], [address] Nucleated RBC (Bld) [#/Vol] 0 10*3/uL Normal 0-5 [facility] Comment on above: Performed By: #### L 100.0100, L504.2610, L500.4050 ####[facility] [address] [place], [address] Platelet mean volume (Bld) [Entitic vol] 9.9 fL Normal 6.2-12.0 [facility] Comment on above: Performed By: #### L 100.0100, L504.2610, L500.4050 ####[facility] [address] [place], [address] Platelets (Bld) [#/Vol] 222 10*3/uL Normal 150-450 [facility] Comment on above: Performed By: #### L 100.0100, L504.2610, L500.4050 ####[facility] [address] [place], [address] RBC (Bld) [#/Vol] 4.16 10*6/uL Low 4.6-6.2 [facility] Comment on above: Performed By: #### L 100.0100, L504.2610, L500.4050 ####[facility] [address] [place], [address] RDW SD 53.2 fl High 35.1-43.9 [facility] Comment on above: Performed By: #### L 100.0100, L504.2610, L500.4050 ####[facility] [address] [place], [address] WBC (Bld) [#/Vol] 8.0 10*3/uL Normal 4.4-11.0 [facility] Comment on above: Performed By: #### L 100.0100, L504.2610, L500.4050 ####[facility] [address] [place], [address] Comprehensive Metabolic Prof ilon 05-05-2024 Albumin [Mass/Vol] 3.1 g/dL Low 3.2-5.0 [facility] Comment on above: Order Comment: 1 Performed By: #### L 100.0100, L504.2610, L500.4050 ####[facility] [address] [place], [address] Albumin/Globulin [Mass ratio] 0.6 {ratio} Low 0.9-2.4 [facility] Comment on above: Order Comment: 1 Performed By: #### L 100.0100, L504.2610, L500.4050 ####[facility] [address] [place], [address] ALK P 60 U/L Normal 45-117 [facility] Comment on above: Order Comment: 1 Performed By: #### L 100.0100, L504.2610, L500.4050 ####[facility] [address] [place], [address] ALT [Catalytic activity/Vol] 15 U/L Low 16-61 [facility] Comment on above: Order Comment: 1 Performed By: #### L 100.0100, L504.2610, L500.4050 ####[facility] [address] [place], [address] AST [Catalytic activity/Vol] 11 U/L Low 15-37 [facility] Comment on above: Order Comment: 1 Performed By: #### L 100.0100, L504.2610, L500.4050 ####[facility] [address] [place], [address] Bilirubin [Mass/Vol] 0.40 mg/dL Normal 0.20-1.00 [facility] Comment on above: Order Comment: 1 Result Comment: For patients on eltrombopag therapy, use of Dimension [place] TBIL is not recommended. Performed By: #### L 100.0100, L504.2610, L500.4050 ####[facility] [address] [place], [address] BUN/CRE 20.3 RATIO High 10-20 [facility] Comment on above: Order Comment: 1 Performed By: #### L 100.0100, L504.2610, L500.4050 ####[facility] [address] [place], [address] CA,Total 9.3 mg/dL Normal 8.5-10.1 [facility] Comment on above: Order Comment: 1 Performed By: #### L 100.0100, L504.2610, L500.4050 ####[facility] [address] [place], [address] Chloride [Moles/Vol] 104 mmol/L Normal 98-107 [facility] Comment on above: Order Comment: 1 Performed By: #### L 100.0100, L504.2610, L500.4050 ####[facility] [address] [place], [address] CO2 [Moles/Vol] 27.0 mmol/L Normal 21.0-32.0 [facility] Comment on above: Order Comment: 1 Performed By: #### L 100.0100, L504.2610, L500.4050 ####[facility] [address] [place], [address] Creatinine [Mass/Vol] 2.17 mg/dL High 0.70-1.30 [facility] Comment on above: Order Comment: 1 Result Comment: The validity of the calculated GFR GFRAA in patients over70 years has not been determined. Clinical correlation isessential. Performed By: #### L 100.0100, L504.2610, L500.4050 ####[facility] [address] [place], [address] ECRCL 27.63 ml/min Normal [facility] Comment on above: Order Comment: 1 Performed By: #### L 100.0100, L504.2610, L500.4050 ####[facility] [address] [place], [address] EST GFR - AA 38 mL/min Low >60 [facility] Comment on above: Order Comment: 1 Result Comment: Afri can Tun[place]ian GFR Calc Performed By: #### L 100.0100, L504.2610, L500.4050 ####[facility] [address] [place], [address] GAP 3 Low 5-15 [facility] Comment on above: Order Comment: 1 Performed By: #### L 100.0100, L504.2610, L500.4050 ####[facility] [address] [place], [address] GFR/1.73 sq M.predicted among non-blacks MDRD (S/P/Bld) [Vol rate/Area] 31 mL/min/{1.73_m2} Low >60 [facility] Comment on above: Order Comment: 1 Result Comment: Non- GFR Calc Performed By: #### L 100.0100, L504.2610, L500.4050 ####[facility] [address] [place], [address] Globulin (S) [Mass/Vol] 4.9 g/dL High 2.2-4.2 [facility] Comment on above: Order Comment: 1 Performed By: #### L 100.0100, L504.2610, L500.4050 ####[facility] [address] [place], [address] Glucose [Mass/Vol] 130 mg/dL High 74-106 [facility] Comment on above: Order Comment: 1 Result Comment: Fast ing Glucose result greater than or equal to 126 mg/dLsuggests DIABETES MELLITUS per A.D.A. criteria. Performed By: #### L 100.0100, L504.2610, L500.4050 ####[facility] [address] [place], [address] Potassium [Moles/Vol] 4.8 mmol/L Normal 3.5-5.1 [facility] Comment on above: Order Comment: 1 Performed By: #### L 100.0100, L504.2610, L500.4050 ####[facility] [address] [place], [address] Sodium [Moles/Vol] 134 mmol/L Low 136-145 [facility] Comment on above: Order Comment: 1 Performed By: #### L 100.0100, L504.2610, L500.4050 ####[facility] [address] [place], [address] T PROT 8.0 g/dL Normal 6.4-8.2 [facility] Comment on above: Order Comment: 1 Performed By: #### L 100.0100, L504.2610, L500.4050 ####[facility] [address] [place], [address] Urea nitrogen [Mass/Vol] 44 mg/dL High 7-18 [facility] Comment on above: Order Comment: 1 Performed By: #### L 100.0100, L504.2610, L500.4050 ####[facility] [address] [place], [address] Estimated glomerular filtrat ion rate (GFR) AmericanOrdered By: Russ Zamora on 05-05-2024 Estimated GFR (MDRD) Amer 38 mL/min Low >60 [facility] Comment on above: GFR Calc LDHon 05-05-2024 LDH 126 U/L Normal 87-241 [facility] Comment on above: Order Comment: 1 Performed By: #### L 100.0100, L504.2610, L500.4050 ####[facility] [address] [place], [address] Oncology Visit Reporton 04-20 Oncology Visit Report Normal [facility] CREATININE FINGERSTICKon Creatinine [Mass/Vol] 1.4 mg/dL High 0.70-1.30 [facility] Comment on above: Performed By: #### L 9100.0200 ####[facility] [address] [place], [place], [address] GFR/1.73 sq M.predicted among non-blacks MDRD (S/P/Bld) [Vol rate/Area] 50.0000 mL/min/{1.73_m2} Low >60 [facility] Comment on above: Performed By: #### L 9100.0200 ####[facility] [address] [place], [place], [address] CT Chest AND Abd W/ Contrast on 04-28-2024 CT Chest AND Abd W/ Contrast Normal [facility] Miscellaneous procedureOrder ed By: Russ Zamora on 01-28-2024 Miscellaneous Test See comment [facility] Comment on above: Sent directly to [facility] per ordering physician. Bacteria identified Cx Nom ( Wound)Ordered By: Joaquim Suárez on 12-24-2023 Wound Culture Staphylococcus pseudintermediu [facility] Wound Culture Enterococcus faecalis [facility] Wound Culture Streptococcus pyogenes [facility] Gram stain for investigation of transfusion reactionOrdered By: Joaquim Suárez on 12-24-2023 Microscopic observation Gram stain Nom (Unsp spec) [facility] Absolute lymphocyte countOrd ered By: Russ Zamora on 11-06-2023 Lymphocytes Auto (Unsp spec) [#/Vol] 0.95 10*3/uL 0.83-4.51 [facility] Addendum DocumentOrdered By: Russ Zamora on 11-06-2023 Serum Immunofixation Comments Comment . [facility] Comment on above: Protein electrophore sis scan will follow via computer,mail, or informatica mdm architect delivery. Albumin Elph [Mass/Vol]Order ed By: Russ Zamora on 11-06-2023 Albumin [Mass/Vol] 3.2 g/dL 2.9-4.4 [facility] Alpha 1 globulin Elph [Mass/ Vol]Ordered By: Russ Wallsnegro on 11-06-2023 Idbeh-5-Woowmocbk (PILY) 0.4 g/dL 0.0-0.4 [facility] Vlipr-4-Azwpnroii (PILY) 1.3 g/dL High 0.4-1.0 [facility] Automated lymphocyte count a s percentage of total leukocytesOrdered By: Russ Zamora on 11-06-2023 Lymphocytes/100 WBC Auto (Unsp spec) 10.5 % 19-41 [facility] Basophil percentageOrdered B y: Russ Wallsnegro on 11-06-2023 Basophils/100 WBC (Bld) 0.6 % 0-1 [facility] Bilirubin [Mass/Vol] 0.30 mg/dL 0.20-1.00 [facility] Comment on above: For patients on eltr ombopag therapy, use of Dimension [place] TBIL is not recommended. Chloride [Moles/Vol] 105 mmol/L 98-107 [facility] Eosinophils/100 WBC (Bld) 2.1 % 0-5 [facility] Glucose [Mass/Vol] 106 mg/dL 74-106 [facility] Comment on above: Fasting Glucose resu lt from 100 to 125 mg/dL suggests IMPAIRED HOMEOSTASIS per A.D.A. criteria. Hemoglobin (Bld) [Mass/Vol] 11.5 g/dL 13.0-16.5 [facility] LDH [Catalytic activity/Vol] 170 U/L 87-241 [facility] Monocytes/100 WBC (Bld) 10.7 % 0-10 [facility] Neutrophils (Bld) [#/Vol] 6.8 10*3/uL 2.0-7.7 [facility] Neutrophils/100 WBC (Bld) 75.2 % 47-70 [facility] Potassium [Moles/Vol] 4.3 mmol/L 3.5-5.1 [facility] Protein [Mass/Vol] 8.2 g/dL 6.4-8.2 [facility] Sodium [Moles/Vol] 135 mmol/L 136-145 [facility] WBC (Bld) [#/Vol] 9.0 10*3/uL 4.4-11.0 [facility] Beta globulin Elph [Mass/Vol ]Ordered By: Russ Zamora on 11-06-2023 Beta-Globulins (PILY) 1.0 g/dL 0.7-1.3 [facility] C-reactive protein measureme nt by high sensitivity methodOrdered By: Russ Zamora on 11-06-2023 C-Reactive Protein Extended Range 22.10 mg/L High 0.0-3.0 [facility] Comment on above: C-Reactive Protein ( CRP) provides useful information for thediagnosis, therapy and monitoring of inflammatory processesand associated diseases. For the evaluation of Relative Riskfor Cardiovascular Disease, a High Sensitivity CRP (HSCRP)should be ordered. C-reactive protein measurement by high sensitivity method 22.10 mg/L High 0.0-3.0 [facility] Comment on above: C-Reactive Protein ( CRP) provides useful information for thediagnosis, therapy and monitoring of inflammatory processesand associated diseases. For the evaluation of Relative Riskfor Cardiovascular Disease, a High Sensitivity CRP (HSCRP)should be ordered. Determination of erythrocyte mean corpuscular volume (MCV)Ordered By: Russ Zamora on 11-06-2023 MCV (RBC) [Entitic vol] 88.0 fL 80-94 [facility] Erythrocyte distribution wid th ratioOrdered By: Russ Zamora on 11-06-2023 Erythrocyte distribution width (RBC) [Ratio] 15.5 % 11.6-14.6 [facility] Erythrocyte distribution wid th standard deviationOrdered By: Russ Zamora on 11-06-2023 Erythrocyte distribution width (RBC) [Entitic vol] 49.5 fL 35.1-43.9 [facility] Erythrocyte sedimentation ra teOrdered By: Russ Zamora on 11-06-2023 ESR (Bld) [Velocity] 21 mm/h High 0-20 [facility] Gamma globulin Elph [Mass/Vo l]Ordered By: Russ Zamora on 11-06-2023 Gamma Globulins (PILY) 1.8 g/dL 0.4-1.8 [facility] Hematocrit Auto (Bld) [Volum e fraction]Ordered By: Russ Zamora on 11-06-2023 Hematocrit (Bld) [Volume fraction] 36.8 % 40-54 [facility] Hemoglobin (Reticulocytes) [ Entitic mass]Ordered By: Russ Zamora on 11-06-2023 Reticulocyte Hemoglobin Equivalent 31.4 pg 30-35 [facility] Hemoglobin in reticulocytes (mass per reticulocyte)Ordered By: Russ Zamora on 11-06-2023 Hemoglobin (Reticulocytes) [Entitic mass] 31.4 pg 30-35 [facility] IgA [Mass/Vol]Ordered By: Flores Zamora on 11-06-2023 Immunoglobulin A 311 mg/dL 61-437 [facility] IgG [Mass/Vol]Ordered By: Flores Zamora on 11-06-2023 Immunoglobulin G 1529 mg/dL 603-1613 [facility] Immature granulocytes/100 WB C Auto (Bld)Ordered By: Russ Zamora on 11-06-2023 Immature granulocytes/100 WBC (Bld) 0.900 % 0.0-0.9 [facility] Comment on above: IG% - Immature Granu locytes (promyelocytes, myelocytes and metamyelocytes) > 1% indicates that a LEFT SHIFT is Present. Immature reticulocyte fracti onOrdered By: Russ Zamora on 11-06-2023 Immature Reticulocyte Fraction 22.10 % High 3.00-15.90 [facility] Immunoglobulin M measurement Ordered By: Russ Zamora on 11-06-2023 Immunoglobulin M 157 mg/dL High 15-143 [facility] Immunoglobulin light chains. kappa [Mass/Vol]Ordered By: Russ Zamora on 11-06-2023 Free [place] Light Chains, Quant 100.3 mg/L High 3.3-19.4 [facility] Immunoglobulin light chains. kappa/Immunoglobulin light chains.lambda (S) [Mass ratio]Ordered By: Russ Zamora on 11-06-2023 Free [place]/Lambda Light Chain Ratio 1.63 0.26-1.65 [facility] Comment on above: Performed at: [address] [id number] Director: Seb Bertrand PhD, Phone: [phone] Interpretation IEP [Interp]O rdered By: Russ Zamora on 11-06-2023 Immunofixation Screen Comment . [facility] Comment on above: No monoclonality det ected. Interpretation of serum or p lasma protein pattern by immunofixation (narrative resultOrdered By: Russ Zamora on 11-06-2023 Protein Fractions Immunofixation Jose Luis [Interp] Not Observed g/dL Not Observed [facility] - Chemistry and C hemistry - challengeOrdered By: Russ Zamora on 11-06-2023 Albumin/Globulin [Mass ratio] 0.6 {ratio} 0.9-2.4 [facility] ALP [Catalytic activity/Vol] 62 U/L 45-117 [facility] ALT [Catalytic activity/Vol] 17 U/L 16-61 [facility] CO2 [Moles/Vol] 24.0 mmol/L 21.0-32.0 [facility] Urea nitrogen/Creatinine [Mass ratio] 21.9 mg/mg 10-20 [facility] - Hematology and Cell countsOrdered By: Russ Zamora on 11-06-2023 MCH (RBC) [Entitic mass] 27.5 pg 27.0-32.0 [facility] MCHC (RBC) [Mass/Vol] 31.3 g/dL 32-36 [facility] Nucleated RBC/100 WBC (Bld) [Ratio] 0 % 0-5 [facility] Platelet mean volume (Bld) [Entitic vol] 9.1 fL 6.2-12.0 [facility] Platelets (Bld) [#/Vol] 270 10*3/uL 150-450 [facility] Lambda free light chain kingsley urementOrdered By: Russ Zamora on 11-06-2023 Free [place] Light Chains, Quant 61.5 mg/L High 5.7-26.3 [facility] No Panel InformationOrdered By: Russ Zamora on 11-06-2023 Addendum Document Comment . [facility] Comment on above: Protein electrophore sis scan will follow via computer,mail, or informatica mdm architect delivery. Estimated Creatinine Clearance Calc 31.12 ml/min [facility] Estimated GFR (MDRD) Amer 43 mL/min >60 [facility] Comment on above: GFR Calc Estimated GFR (MDRD) Non-Af Amer 35 mL/min >60 [facility] Comment on above: Non- GFR Calc Protein Fractions Immunofixa tion Jose Luis [Interp]Ordered By: Russ Zamora on 11-06-2023 M-Arash (PILY) Not Observed g/dL Not Observed [facility] RBC Auto (Bld) [#/Vol]Ordere d By: Russ Zamora on 11-06-2023 RBC (Bld) [#/Vol] 4.18 10*6/uL 4.6-6.2 [facility] Reticulocytes Auto (Bld) [#/ Vol]Ordered By: Russ Zamora on 11-06-2023 Reticulocyte Count 2.12 % High 0.5-1.5 [facility] Reticulocytes/100 RBC (Bld) 2.12 % High 0.5-1.5 [facility] Serum albumin/globulin ratio Ordered By: Russ Zamora on 11-06-2023 Albumin/Globulin (PILY) 0.8 0.7-1.7 [facility] Serum ljulq-0-xzdmbxoz measu rement by electrophoresisOrdered By: Russ Zamora on 11-06-2023 Alpha 1 globulin Elph [Mass/Vol] 0.4 g/dL 0.0-0.4 [facility] Alpha 1 globulin Elph [Mass/Vol] 1.3 g/dL High 0.4-1.0 [facility] Serum globulin measurement ( mass/volume)Ordered By: Russ Zamora on 11-06-2023 Globulin (S) [Mass/Vol] 4.4 g/dL 2.2-3.9 [facility] Serum immunoglobulin kappa l ight chains/immunoglobulin lambda light chains mass ratioOrdered By: Russ Zamora on 11-06-2023 Immunoglobulin light chains.kappa/Immunoglobu mellissa light chains.lambda (S) [Mass ratio] 1.63 0.26-1.65 [facility] Comment on above: Performed at: [address] [id number] Director: Seb Bertrand PhD, Phone: [phone] Serum or plasma IgA measurem ent (mass/volume)Ordered By: Russ Zamora on 11-06-2023 IgA [Mass/Vol] 311 mg/dL 61-437 [facility] Serum or plasma IgG measurem ent (mass/volume)Ordered By: Russ Zamora on 11-06-2023 IgG [Mass/Vol] 1529 mg/dL [id number] [facility] Serum or plasma beta globuli n measurement by electrophoresis (mass/volume)Ordered By: Russ Walsl on 11-06-2023 Beta globulin Elph [Mass/Vol] 1.0 g/dL 0.7-1.3 [facility] Serum or plasma calcium kingsley urement (mass/volume)Ordered By: Russ Walls on 11-06-2023 Calcium [Mass/Vol] 9.0 mg/dL 8.5-10.1 [facility] Serum or plasma creatinine m easurement (mass/volume)Ordered By: Russ Walls on 11-06-2023 Creatinine [Mass/Vol] 1.96 mg/dL 0.70-1.30 [facility] Comment on above: The validity of the calculated GFR & GFRAA in patients over 70 years has not been determined. Clinical correlation is essential. Serum or plasma gamma globul in measurement by electrophoresis (mass/volume)Ordered By: Russ Walls on 11-06-2023 Gamma globulin Elph [Mass/Vol] 1.8 g/dL 0.4-1.8 [facility] Serum or plasma immunoelectr ophoresis interpretation (nominal result)Ordered By: Russ Walls on 11-06-2023 Interpretation IEP [Interp] Comment . [facility] Comment on above: No monoclonality det ected. Serum or plasma immunoglobul in kappa light chains measurement (mass/volume)Ordered By: Russ Walls on 11-06-2023 Immunoglobulin light chains.kappa [Mass/Vol] 100.3 mg/L High 3.3-19.4 [facility] Serum or plasma urea nitroge n measurement (mass/volume)Ordered By: Russ Walls on 11-06-2023 Urea nitrogen [Mass/Vol] 43 mg/dL 7-18 [facility] Serum or plasma uric acid me asurement (mass/volume)Ordered By: [facility] on 11-06-2023 Urate [Mass/Vol] 6.6 mg/dL 3.5-7.2 [facility] Comment on above: The drugs N-Acetylcy steine and Metamizole may falsely depress this assay. Thin prep Papanicolaou smear with manual screeningOrdered By: Russ Walls on 11-06-2023 Thin prep Papanicolaou smear with manual screening 3.2 g/dL 3.2-5.0 [facility] Thin prep Papanicolaou smear with manual screening 15 U/L 15-37 [facility] Thin prep Papanicolaou smear with manual screening 6 5-15 [facility] Thin prep Papanicolaou smear with manual screening 0.8 0.7-1.7 [facility] Total protein bloodOrdered B y: Russ Walls on 11-06-2023 Protein [Mass/Vol] 7.6 g/dL 6.0-8.5 [facility] Basophil percentageOrdered B y: Russ [facility] on 10-12-2023 Creatinine [Mass/Vol] 1.5 mg/dL 0.70-1.30 [facility] Laboratory - Chemistry and C hemistry - challengeOrdered By: Russ Walls on 10-12-2023 GFR/1.73 sq M.predicted among non-blacks MDRD (S/P/Bld) [Vol rate/Area] 49.0000 mL/min/{1.73_m2} >60 [facility] Absolute lymphocyte countOrd ered By: Leslie Arriaga on 07-26-2023 Lymphocytes Auto (Unsp spec) [#/Vol] 1.22 10*3/uL 0.83-4.51 [facility] Assessment of wrist artery p atency prior to arterial punctureOrdered By: Lorie Mart on 07-26-2023 Arterial patency Wrist artery --pre arterial puncture Positive [facility] Base excessOrdered By: Obed Mart on 07-26-2023 Base excess Calc (BldV) [Moles/Vol] -1 mmol/L -2-2 [facility] Basophil percentageOrdered B y: Leslie Arriaga on 07-26-2023 Basophils/100 WBC (Bld) 0.7 % 0-1 [facility] Chloride [Moles/Vol] 105 mmol/L 98-107 [facility] Eosinophils/100 WBC (Bld) 1.7 % 0-5 [facility] Glucose [Mass/Vol] 99 mg/dL 74-106 [facility] Neutrophils (Bld) [#/Vol] 9.0 10*3/uL 2.0-7.7 [facility] Neutrophils/100 WBC (Bld) 76.3 % 47-70 [facility] Potassium [Moles/Vol] 4.8 mmol/L 3.5-5.1 [facility] Sodium [Moles/Vol] 135 mmol/L 136-145 [facility] WBC (Bld) [#/Vol] 11.7 10*3/uL 4.4-11.0 [facility] Basophil percentageOrdered B y: Lorie Mart on 07-26-2023 Basophil percentage 24.8 mmol/L 22-26 [facility] Basophils/100 WBC (Bld) 95 % 95-99 [facility] Blood erythrocytes count (nu mber/volume)Ordered By: Leslie Arriaga on 07-26-2023 RBC (Bld) [#/Vol] 4.50 10*6/uL 4.6-6.2 [facility] Blood hemoglobin measurement (mass/volume)Ordered By: Leslie Arriaga on 07-26-2023 Hemoglobin (Bld) [Mass/Vol] 12.5 g/dL 13.0-16.5 [facility] Blood lymphocytes/100 leukoc ytesOrdered By: Leslie Arriaga on 07-26-2023 Lymphocytes/100 WBC (Bld) 10.4 % 19-41 [facility] Blood monocytes/100 leukocyt esOrdered By: Leslie Arriaga on 07-26-2023 Monocytes/100 WBC (Bld) 10.2 % 0-10 [facility] Blood platelet mean volumeOr dered By: Leslie Arriaga on 07-26-2023 Platelet mean volume (Bld) [Entitic vol] 10.6 fL 6.2-12.0 [facility] CO2 (BldA) [Partial pressure ]Ordered By: Lorie Mart on 07-26-2023 CO2 (Bld) [Partial pressure] 42.6 mm[Hg] 35-45 [facility] Determination of erythrocyte mean corpuscular volume (MCV)Ordered By: Leslie Arriaga on 07-26-2023 MCV (RBC) [Entitic vol] 87.6 fL 80-94 [facility] Hematocrit Auto (Bld) [Volum e fraction]Ordered By: Leslie Arriaga on 07-26-2023 Hematocrit (Bld) [Volume fraction] 39.4 % 40-54 [facility] Laboratory - Chemistry and C hemistry - challengeOrdered By: Leslie Arriaga on 07-26-2023 CO2 [Moles/Vol] 28.0 mmol/L 21.0-32.0 [facility] Natriuretic peptide B (Bld) [Mass/Vol] 233.5 pg/mL 0-100 [facility] Urea nitrogen/Creatinine [Mass ratio] 25.4 mg/mg 10-20 [facility] Laboratory - Hematology and Cell countsOrdered By: Leslie Arriaga on 07-26-2023 Erythrocyte distribution width (RBC) [Entitic vol] 52.0 fL 35.1-43.9 [facility] Erythrocyte distribution width (RBC) [Ratio] 16.3 % 11.6-14.6 [facility] Immature granulocytes/100 WBC (Bld) 0.700 % 0.0-0.9 [facility] Comment on above: IG% - Immature Granu locytes (promyelocytes, myelocytes and metamyelocytes) > 1% indicates that a LEFT SHIFT is Present. MCH (RBC) [Entitic mass] 27.8 pg 27.0-32.0 [facility] Nucleated RBC/100 WBC (Bld) [Ratio] 0 % 0-5 [facility] MCHC Auto (RBC) [Mass/Vol]Or dered By: Leslie Arriaga on 07-26-2023 MCHC (RBC) [Mass/Vol] 31.7 g/dL 32-36 [facility] No Panel InformationOrdered By: Leslie Arriaga on 07-26-2023 Estimated GFR (MDRD) Amer 40 mL/min >60 [facility] Comment on above: GFR Calc Estimated GFR (MDRD) Non-Af Amer 33 mL/min >60 [facility] Comment on above: Non- GFR Calc No Panel InformationOrdered By: Lorie Mart on 07-26-2023 Blood Gas Sample Site R Radial [facility] Blood Gas Specimen Type ART [facility] Blood Gas Total CO2 26 mmol/L [facility] Blood Gas Vent Mode Not entered [facility] Oxygen Delivery Device [id number] [facility] Oxygen (BldA) [Partial press ure]Ordered By: Lorie Mart on 07-26-2023 Oxygen (Bld) [Partial pressure] 77 mmHG 75-100 [facility] Platelets bldOrdered By: Markus Arriaga on 07-26-2023 Platelets (Bld) [#/Vol] 264 10*3/uL 150-450 [facility] Serum or plasma calcium kings[place] urement (mass/volume)Ordered By: Leslie Arriaga on 07-26-2023 Calcium [Mass/Vol] 9.3 mg/dL 8.5-10.1 [facility] Serum or plasma creatinine m easurement (mass/volume)Ordered By: Leslie Arriaga on 07-26-2023 Creatinine [Mass/Vol] 2.09 mg/dL 0.70-1.30 [facility] Comment on above: The validity of the calculated GFR & GFRAA in patients over 70 years has not been determined. Clinical correlation is essential. Serum or plasma urea nitroge n measurement (mass/volume)Ordered By: Leslie Arriaga on 07-26-2023 Urea nitrogen [Mass/Vol] 53 mg/dL 7-18 [facility] Thin prep Papanicolaou smear with manual screeningOrdered By: Leslie Arriaga on 07-26-2023 Thin prep Papanicolaou smear with manual screening 2 5-15 [facility] pH measurementOrdered By: Pj Mart on 07-26-2023 pH (Unsp spec) 7.37 [pH] 7.35-7.45 [facility] Anaerobic cultureOrdered By: Joaquim Suárez on 06-22-2023 Bacteria identified Anaer cx Nom (Unsp spec) No anaerobic bacteria isolated. [facility] Bacteria identified Cx Nom ( Wound)Ordered By: Joaquim Suárez on 06-22-2023 Wound Culture Staphylococcus epidermidis [facility] Wound Culture Corynebacterium jeikeium [facility] Fungus cultureOrdered By: Flores Suárez on 06-22-2023 Fungus identified Cx Nom (Unsp spec) [facility] Gram stain for investigation of transfusion reactionOrdered By: Joaquim Suárez on 06-22-2023 Microscopic observation Gram stain Nom (Unsp spec) [facility] Glucose Glucometer (BldC) [M ass/Vol]Ordered By: Joaquim Suárez on 10-20-2023 Glucose [Mass/Vol] 72 mg/dL 74-106 [facility] Comment on above: MANAGEMENT OF PATIEN T CARE PER NURSING PROTOCOL Absolute lymphocyte countOrd ered By: Russ Zamora on 04-17-2023 Lymphocytes Auto (Unsp spec) [#/Vol] 1.02 10*3/uL 0.83-4.51 [facility] Basophil percentageOrdered B y: Russ Zamora on 04-17-2023 Basophils/100 WBC (Bld) 0.5 % 0-1 [facility] Bilirubin [Mass/Vol] 0.30 mg/dL 0.20-1.00 [facility] Comment on above: For patients on eltr ombopag therapy, use of Dimension [place] TBIL is not recommended. Chloride [Moles/Vol] 102 mmol/L 98-107 [facility] Eosinophils/100 WBC (Bld) 2.6 % 0-5 [facility] Glucose [Mass/Vol] 209 mg/dL 74-106 [facility] Comment on above: Glucose result great er than or equal to 200 mg/dLsuggests DIABETES MELLITUS per A.D.A. criteria. LDH [Catalytic activity/Vol] 152 U/L 87-241 [facility] Neutrophils (Bld) [#/Vol] 6.0 10*3/uL 2.0-7.7 [facility] Neutrophils/100 WBC (Bld) 74.2 % 47-70 [facility] Potassium [Moles/Vol] 4.3 mmol/L 3.5-5.1 [facility] Protein [Mass/Vol] 7.8 g/dL 6.4-8.2 [facility] Sodium [Moles/Vol] 136 mmol/L 136-145 [facility] WBC (Bld) [#/Vol] 8.1 10*3/uL 4.4-11.0 [facility] Blood erythrocytes count (nu mber/volume)Ordered By: Russ Zamora on 04-17-2023 RBC (Bld) [#/Vol] 4.45 10*6/uL 4.6-6.2 [facility] Blood hemoglobin measurement (mass/volume)Ordered By: Russ Zamora on 04-17-2023 Hemoglobin (Bld) [Mass/Vol] 12.3 g/dL 13.0-16.5 [facility] Blood lymphocytes/100 leukoc ytesOrdered By: Russ Sera on 04-17-2023 Lymphocytes/100 WBC (Bld) 12.6 % 19-41 [facility] Blood monocytes/100 leukocyt esOrdered By: [facility] on [facility]23 Monocytes/100 WBC (Bld) 9.4 % 0-10 [facility] Blood platelet mean volumeOr dered By: Russ Zamora on 04-17-2023 Platelet mean volume (Bld) [Entitic vol] 9.5 fL 6.2-12.0 [facility] Determination of erythrocyte mean corpuscular volume (MCV)Ordered By: Russ Zamora on 04-17-2023 MCV (RBC) [Entitic vol] 89.9 fL 80-94 [facility] Hematocrit Auto (Bld) [Volum e fraction]Ordered By: Russ Walls on 04-17-2023 Hematocrit (Bld) [Volume fraction] 40.0 % 40-54 [facility] Laboratory - Chemistry and C hemistry - challengeOrdered By: Arverne Kavita on 04-17-2023 ALP [Catalytic activity/Vol] 58 U/L 45-117 [facility] ALT [Catalytic activity/Vol] 21 U/L 16-61 [facility] CO2 [Moles/Vol] 27.0 mmol/L 21.0-32.0 [facility] Globulin (S) [Mass/Vol] 4.5 g/dL 2.2-4.2 [facility] Urea nitrogen/Creatinine [Mass ratio] 20.3 mg/mg 10-20 [facility] Laboratory - Hematology and Cell countsOrdered By: Russ Kavita on 04-17-2023 Erythrocyte distribution width (RBC) [Entitic vol] 54.4 fL 35.1-43.9 [facility] Erythrocyte distribution width (RBC) [Ratio] 16.5 % 11.6-14.6 [facility] Immature granulocytes/100 WBC (Bld) 0.700 % 0.0-0.9 [facility] Comment on above: IG% - Immature Granu locytes (promyelocytes, myelocytes and metamyelocytes) > 1% indicates that a LEFT SHIFT is Present. MCH (RBC) [Entitic mass] 27.6 pg 27.0-32.0 [facility] Nucleated RBC/100 WBC (Bld) [Ratio] 0 % 0-5 [facility] [Mass/Vol]Or dered By: Russ Zamora on 04-17-2023 MCHC (RBC) [Mass/Vol] 30.8 g/dL 32-36 [facility] No Panel InformationOrdered By: Russ Zamora on 04-17-2023 Estimated Creatinine Clearance Calc 29.38 ml/min [facility] Estimated GFR (MDRD) Amer 45 mL/min >60 [facility] Comment on above: GFR Calc Estimated GFR (MDRD) Non-Af Amer 37 mL/min >60 [facility] Comment on above: Non- GFR Calc Platelets bldOrdered By: Frantz Zamora on 04-17-2023 Platelets (Bld) [#/Vol] 214 10*3/uL 150-450 [facility] Serum or plasma albumin kings[place] urement (mass/volume)Ordered By: Russ Zamora on 04-17-2023 Albumin [Mass/Vol] 3.3 g/dL 3.2-5.0 [facility] Serum or plasma albumin/glob ulin mass ratioOrdered By: Russ Zamora on 04-17-2023 Albumin/Globulin [Mass ratio] 0.7 {ratio} 0.9-2.4 [facility] Serum or plasma calcium kings[place] urement (mass/volume)Ordered By: Russ Zamora on 04-17-2023 Calcium [Mass/Vol] 9.1 mg/dL 8.5-10.1 [facility] Serum or plasma creatinine m easurement (mass/volume)Ordered By: Russ Zamora on 04-17-2023 Creatinine [Mass/Vol] 1.87 mg/dL 0.70-1.30 [facility] Comment on above: The validity of the calculated GFR & GFRAA in patients over 70 years has not been determined. Clinical correlation is essential. Serum or plasma urea nitroge n measurement (mass/volume)Ordered By: Russ Zamora on 04-17-2023 Urea nitrogen [Mass/Vol] 38 mg/dL 7-18 [facility] Thin prep Papanicolaou smear with manual screeningOrdered By: Russ Zamora on 04-17-2023 Thin prep Papanicolaou smear with manual screening 16 U/L 15-37 [facility] Thin prep Papanicolaou smear with manual screening 7 5-15 [facility] Basophil percentageOrdered B y: Russ Zamora on 04-10-2023 Creatinine [Mass/Vol] 1.1 mg/dL 0.70-1.30 [facility] No Panel InformationOrdered By: Russ Zamora on 04-10-2023 Bedside Estimated GFR (eGFR) > 60.0000 mL/min >60 [facility] Anaerobic cultureOrdered By: Bonny Glynn on 01-13-2023 Bacteria identified Anaer cx Nom (Unsp spec) No anaerobic bacteria isolated. [facility] Bacteria identified Cx Nom ( Wound)Ordered By: Bonny Glynn on 01-11-2023 Wound Culture [facility] Gram stain for investigation of transfusion reactionOrdered By: Bonny Glynn on 01-09-2023 Microscopic observation Gram stain Nom (Unsp spec) [facility] Anaerobic cultureOrdered By: Bonny Glynn on 01-08-2023 Bacteria identified Anaer cx Nom (Unsp spec) No anaerobic bacteria isolated. [facility] Bacteria identified Cx Nom ( Wound)Ordered By: Bonny Glynn on 01-08-2023 Wound Culture [facility]aphylococcus [facility] Gram stain for investigation of transfusion reactionOrdered By: Bonny Glynn on 01-08-2023 Microscopic observation Gram stain Nom (Unsp spec) [facility] Laboratory - Microbiology an d Antimicrobial susceptibilityOrdered By: Dr. Ochoa on 01-05-2023 Bacteria identified Cx Nom (Bld) No growth in 5 days. [facility] Culture, urineOrdered By: Dr Marianna Ochoa on 01-02-2023 Bacteria identified Cx Nom (U) Culture exhibits no growth. [facility] Influenza virus A and B and SARS-CoV-2 (COVID-19) Ag panel - Upper respiratory specimOrdered By: Dr. Ochoa on 12-31-2022 SARS-CoV-2 & FLU Antigen (Rapid) Influenzae A [facility] Absolute lymphocyte countOrd ered By: Dr. Ochoa on 12-30-2022 Lymphocytes Auto (Unsp spec) [#/Vol] 0.68 10*3/uL 0.83-4.51 [facility] Basophil percentageOrdered B y: Dr. Ochoa on 12-30-2022 Basophil percentage 0-5 SEEN /hpf 0-5 [facility] Basophils/100 WBC (Bld) 0.5 % 0-1 [facility] Bilirubin [Mass/Vol] 0.50 mg/dL 0.20-1.00 [facility] Comment on above: For patients on eltr ombopag therapy, use of Dimension [place] TBIL is not recommended. Chloride [Moles/Vol] 102 mmol/L 98-107 [facility] Eosinophils/100 WBC (Bld) 0.2 % 0-5 [facility] Glucose [Mass/Vol] 119 mg/dL 74-106 [facility] Comment on above: Fasting Glucose resu lt from 100 to 125 mg/dL suggests IMPAIRED HOMEOSTASIS per A.D.A. criteria. Lactate [Moles/Vol] 1.4 mmol/L 0.4-2.0 [facility] Neutrophils (Bld) [#/Vol] 8.8 10*3/uL 2.0-7.7 [facility] Neutrophils/100 WBC (Bld) 83.3 % 47-70 [facility] Potassium [Moles/Vol] 5.2 mmol/L 3.5-5.1 [facility] Protein [Mass/Vol] 8.2 g/dL 6.4-8.2 [facility] Sodium [Moles/Vol] 134 mmol/L 136-145 [facility] WBC (Bld) [#/Vol] 10.6 10*3/uL 4.4-11.0 [facility] Bilirubin Test strip Ql (U)O rdered By: Dr. Ochoa on 12-30-2022 Bilirubin Ql (U) Negative Negative [facility] Blood erythrocytes count (nu mber/volume)Ordered By: Dr. Ochoa on 12-30-2022 RBC (Bld) [#/Vol] 4.36 10*6/uL 4.6-6.2 [facility] Blood hemoglobin measurement (mass/volume)Ordered By: Dr. Ochoa on 12-30-2022 Hemoglobin (Bld) [Mass/Vol] 12.1 g/dL 13.0-16.5 [facility] Blood lymphocytes/100 leukoc ytesOrdered By: Dr. Ochoa on 12-30-2022 Lymphocytes/100 WBC (Bld) 6.4 % 19-41 [facility] Blood monocytes/100 leukocyt esOrdered By: Dr. Ochoa on 12-30-2022 Monocytes/100 WBC (Bld) 9.1 % 0-10 [facility] Blood platelet mean volumeOr dered By: Dr. Ochoa on 12-30-2022 Platelet mean volume (Bld) [Entitic vol] 10.2 fL 6.2-12.0 [facility] Culture, urineOrdered By: Chino Ochoa on 12-30-2022 Bacteria identified Cx Nom (U) Culture exhibits no growth. [facility] Determination of erythrocyte mean corpuscular volume (MCV)Ordered By: Dr. Ochao on 12-30-2022 MCV (RBC) [Entitic vol] 87.2 fL 80-94 [facility] Hematocrit Auto (Bld) [Volum e fraction]Ordered By: Dr. Ochoa on 12-30-2022 Hematocrit (Bld) [Volume fraction] 38.0 % 40-54 [facility] INR in Blood by Coagulation assayOrdered By: Dr. Ochoa on 12-30-2022 INR Coag (Bld) [Relative time] 1.3 {INR} [facility] Influenza virus A and B and SARS-CoV-2 (COVID-19) Ag panel - Upper respiratory specimOrdered By: Chris Ochoa on 12-30-2022 SARS-CoV-2 & FLU Antigen (Rapid) Influenzae A [facility] Ketones Test strip Ql (U)Ord ered By: Dr. Ochoa on 12-30-2022 Ketones Ql (U) Negative Negative [facility] Laboratory - Chemistry and C hemistry - challengeOrdered By: Dr. Ochoa on 12-30-2022 ALP [Catalytic activity/Vol] 53 U/L 45-117 [facility] ALT [Catalytic activity/Vol] 22 U/L 16-61 [facility] CO2 [Moles/Vol] 25.0 mmol/L 21.0-32.0 [facility] Globulin (S) [Mass/Vol] 4.7 g/dL 2.2-4.2 [facility] Urea nitrogen/Creatinine [Mass ratio] 22.0 mg/mg 10-20 [facility] Laboratory - CoagulationOrde red By: Dr. Ochoa on 12-30-2022 aPTT Coag (Bld) [Time] 38.9 s 24.1-36.2 [facility] PT Coag (PPP) [Time] 15.8 s 11.7-14.9 [facility] Laboratory - Hematology and Cell countsOrdered By: Dr. Ochoa on 12-30-2022 Erythrocyte distribution width (RBC) [Entitic vol] 50.5 fL 35.1-43.9 [facility] Erythrocyte distribution width (RBC) [Ratio] 15.9 % 11.6-14.6 [facility] Immature granulocytes/100 WBC (Bld) 0.500 % 0.0-0.9 [facility] Comment on above: IG% - Immature Granu locytes (promyelocytes, myelocytes and metamyelocytes) > 1% indicates that a LEFT SHIFT is Present. MCH (RBC) [Entitic mass] 27.8 pg 27.0-32.0 [facility] Nucleated RBC/100 WBC (Bld) [Ratio] 0 % 0-5 [facility] Laboratory - Microbiology an d Antimicrobial susceptibilityOrdered By: Chris Ochoa on 12-30-2022 Bacteria identified Cx Nom (Bld) No growth in 5 days. [facility] MCHC Auto (RBC) [Mass/Vol]Or dered By: Dr. Ochoa on 12-30-2022 MCHC (RBC) [Mass/Vol] 31.8 g/dL 32-36 [facility] Mucus LM Ql (Urine sed)Order ed By: Dr. Ochoa on 12-30-2022 Mucus Ql (Urine sed) 0 SEEN /hpf [facility] Nitrite Test strip Ql (U)Ord ered By: Dr. Ochoa on 12-30-2022 Nitrite Ql (U) Negative Negative [facility] No Panel InformationOrdered By: Dr. Ochoa on 12-30-2022 Estimated Creatinine Clearance Calc 27.91 ml/min [facility] Estimated GFR (MDRD) Amer 42 mL/min >60 [facility] Comment on above: GFR Calc Estimated GFR (MDRD) Non-Af Amer 35 mL/min >60 [facility] Comment on above: Non- GFR Calc Platelets bldOrdered By: Dr. Ochoa on 12-30-2022 Platelets (Bld) [#/Vol] 210 10*3/uL 150-450 [facility] Protein Test strip Ql (U)Ord ered By: Dr. Ochoa on 12-30-2022 Protein Ql (U) 100 mg/dl Negative [facility] Serum or plasma albumin kings[place] urement (mass/volume)Ordered By: Dr. Ochoa on 12-30-2022 Albumin [Mass/Vol] 3.5 g/dL 3.2-5.0 [facility] Serum or plasma albumin/glob ulin mass ratioOrdered By: Dr. Ochoa on 12-30-2022 Albumin/Globulin [Mass ratio] 0.7 {ratio} 0.9-2.4 [facility] Serum or plasma calcium kings[place] urement (mass/volume)Ordered By: Dr. Ochoa on 12-30-2022 Calcium [Mass/Vol] 9.2 mg/dL 8.5-10.1 [facility] Serum or plasma creatinine m easurement (mass/volume)Ordered By: Dr. Ochoa on 12-30-2022 Creatinine [Mass/Vol] 2.00 mg/dL 0.70-1.30 [facility] Comment on above: The validity of the calculated GFR & GFRAA in patients over 70 years has not been determined. Clinical correlation is essential. Serum or plasma urea nitroge n measurement (mass/volume)Ordered By: Dr. Ochoa on 12-30-2022 Urea nitrogen [Mass/Vol] 44 mg/dL 7-18 [facility] Squamous epithelial cells de tection in urine sediment by light microscopyOrdered By: Dr. Ochoa on 12-30-2022 Epithelial cells.squamous LM Ql (Urine sed) 0 SEEN /hpf 0-5 [facility] Thin prep Papanicolaou smear with manual screeningOrdered By: Dr. Ochoa on 12-30-2022 Thin prep Papanicolaou smear with manual screening 22 U/L 15-37 [facility] Thin prep Papanicolaou smear with manual screening 7 5-15 [facility] Urine blood detectionOrdered By: Dr. Ochoa on 12-30-2022 RBC Ql (U) 25 /ul Negative [facility] RBC Ql (U) 0 SEEN /hpf 0-5 [facility] Urine clarityOrdered By: Dr. Ochoa on 12-30-2022 Clarity (U) Clear Clear [facility] Urine color determinationOrd ered By: Dr. Ochoa on 12-30-2022 Color (U) Yellow Yellow [facility] Urine glucose detectionOrder ed By: Dr. Ochoa on 12-30-2022 Glucose Ql (U) Normal mg/dl Normal [facility] Urine leukocyte esterase det ection by dipstickOrdered By: Dr. Ochoa on 12-30-2022 Leukocyte esterase Test strip Ql (U) 25 /ul Negative [facility] Urine pHOrdered By: Dr. Amy chowdhury on 12-30-2022 pH (U) 7.0 [pH] 5.0 - 8.0 [facility] Urine sediment bacteria coun t by microscopy (number/high power field)Ordered By: Dr. Ochoa on 12-30-2022 Bacteria LM.HPF (Urine sed) [#/Area] 0 /[HPF] None Seen [facility] Urine specific gravity measu rementOrdered By: Dr. Ochoa on 12-30-2022 Specific gravity (U) [Rel density] 1.005 1.002-1.03 0 [facility] Urobilinogen Auto test strip Ql (U)Ordered By: Dr. Ochoa on 12-30-2022 Urobilinogen Ql (U) Normal mg/dl Normal [facility] Absolute lymphocyte countOrd ered By: Dr. Zamora on 10-16-2022 Lymphocytes Auto (Unsp spec) [#/Vol] 1.25 10*3/uL 0.83-4.51 [facility] Basophil percentageOrdered B y: Dr. Zamora on 10-16-2022 Basophils/100 WBC (Bld) 0.6 % 0-1 [facility] Bilirubin [Mass/Vol] 0.30 mg/dL 0.20-1.00 [facility] Comment on above: For patients on eltr ombopag therapy, use of Dimension [place] TBIL is not recommended. Chloride [Moles/Vol] 106 mmol/L 98-107 [facility] Eosinophils/100 WBC (Bld) 1.4 % 0-5 [facility] Glucose [Mass/Vol] 225 mg/dL 74-106 [facility] Comment on above: Glucose result great er than or equal to 200 mg/dLsuggests DIABETES MELLITUS per A.D.A. criteria. LDH [Catalytic activity/Vol] 135 U/L 87-241 [facility] Neutrophils (Bld) [#/Vol] 5.1 10*3/uL 2.0-7.7 [facility] Neutrophils/100 WBC (Bld) 70.2 % 47-70 [facility] Potassium [Moles/Vol] 4.5 mmol/L 3.5-5.1 [facility] Protein [Mass/Vol] 7.8 g/dL 6.4-8.2 [facility] Sodium [Moles/Vol] 139 mmol/L 136-145 [facility] WBC (Bld) [#/Vol] 7.3 10*3/uL 4.4-11.0 [facility] Blood erythrocytes count (nu mber/volume)Ordered By: Dr. Zamora on 10-16-2022 RBC (Bld) [#/Vol] 3.94 10*6/uL 4.6-6.2 [facility] Blood hemoglobin measurement (mass/volume)Ordered By: Dr. Zamora on 10-16-2022 Hemoglobin (Bld) [Mass/Vol] 11.5 g/dL 13.0-16.5 [facility] Blood lymphocytes/100 leukoc ytesOrdered By: Dr. Zamora on 10-16-2022 Lymphocytes/100 WBC (Bld) 17.2 % 19-41 [facility] Blood monocytes/100 leukocyt esOrdered By: Dr. Zamora on 10-16-2022 Monocytes/100 WBC (Bld) 9.8 % 0-10 [facility] Blood platelet mean volumeOr dered By: Dr. Zamora on 10-16-2022 Platelet mean volume (Bld) [Entitic vol] 9.9 fL 6.2-12.0 [facility] Determination of erythrocyte mean corpuscular volume (MCV)Ordered By: Dr. Zamora on 10-16-2022 MCV (RBC) [Entitic vol] 91.1 fL 80-94 [facility] Hematocrit Auto (Bld) [Volum e fraction]Ordered By: Dr. Zamora on 10-16-2022 Hematocrit (Bld) [Volume fraction] 35.9 % 40-54 [facility] Laboratory - Chemistry and C hemistry - challengeOrdered By: Dr. Zamora on 10-16-2022 ALP [Catalytic activity/Vol] 52 U/L 45-117 [facility] ALT [Catalytic activity/Vol] 19 U/L 16-61 [facility] CO2 [Moles/Vol] 26.0 mmol/L 21.0-32.0 [facility] Globulin (S) [Mass/Vol] 4.5 g/dL 2.2-4.2 [facility] Urea nitrogen/Creatinine [Mass ratio] 17.5 mg/mg 10-20 [facility] - Hematology and Cell countsOrdered By: Dr. Zamora on 10-16-2022 Erythrocyte distribution width (RBC) [Entitic vol] 50.4 fL 35.1-43.9 [facility] Erythrocyte distribution width (RBC) [Ratio] 15.2 % 11.6-14.6 [facility] Immature granulocytes/100 WBC (Bld) 0.800 % 0.0-0.9 [facility] Comment on above: IG% - Immature Granu locytes (promyelocytes, myelocytes and metamyelocytes) > 1% indicates that a LEFT SHIFT is Present. MCH (RBC) [Entitic mass] 29.2 pg 27.0-32.0 [facility] Nucleated RBC/100 WBC (Bld) [Ratio] 0 % 0-5 [facility] MCHC Auto (RBC) [Mass/Vol]Or dered By: Dr. Zamora on 10-16-2022 MCHC (RBC) [Mass/Vol] 32.0 g/dL 32-36 [facility] No Panel InformationOrdered By: Dr. Zamora on 10-16-2022 Estimated GFR (MDRD) Amer 45 mL/min >60 [facility] Comment on above: GFR Calc Estimated GFR (MDRD) Non-Af Amer 37 mL/min >60 [facility] Comment on above: Non- GFR Calc Platelets bldOrdered By: Dr. Zamora on 10-16-2022 Platelets (Bld) [#/Vol] 193 10*3/uL 150-450 [facility] Serum or plasma albumin kingsley urement (mass/volume)Ordered By: Dr. Zamora on 10-16-2022 Albumin [Mass/Vol] 3.3 g/dL 3.2-5.0 [facility] Serum or plasma albumin/glob ulin mass ratioOrdered By: Dr. Zamora on 10-16-2022 Albumin/Globulin [Mass ratio] 0.7 {ratio} 0.9-2.4 [facility] Serum or plasma calcium kingsley urement (mass/volume)Ordered By: Dr. Zamora on 10-16-2022 Calcium [Mass/Vol] 9.3 mg/dL 8.5-10.1 [facility] Serum or plasma creatinine m easurement (mass/volume)Ordered By: Dr. Zamora on 10-16-2022 Creatinine [Mass/Vol] 1.89 mg/dL 0.70-1.30 [facility] Comment on above: The validity of the calculated GFR & GFRAA in patients over 70 years has not been determined. Clinical correlation is essential. Serum or plasma urea nitroge n measurement (mass/volume)Ordered By: Dr. Zamora on 10-16-2022 Urea nitrogen [Mass/Vol] 33 mg/dL 7-18 [facility] Thin prep Papanicolaou smear with manual screeningOrdered By: Dr. Zamora on 10-16-2022 Thin prep Papanicolaou smear with manual screening 17 U/L 15-37 [facility] Thin prep Papanicolaou smear with manual screening 7 5-15 [facility] Basophil percentageOrdered B y: Dr. Zamora on 10-09-2022 Creatinine [Mass/Vol] 1.4 mg/dL 0.70-1.30 [facility] Laboratory - Chemistry and C hemistry - challengeOrdered By: Dr. 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 [facility] Bilirubin Test strip Ql (U)O rdered By: Bonny Glynn on 10-02-2022 Bilirubin Ql (U) Negative Negative [facility] Ketones Test strip Ql (U)Ord ered By: Bonny Glynn on 10-02-2022 Ketones Ql (U) Negative Negative [facility] Nitrite Test strip Ql (U)Ord ered By: Bonny Glynn on 10-02-2022 Nitrite Ql (U) Positive Negative [facility] Protein Test strip Ql (U)Ord ered By: Bonny Glynn on 10-02-2022 Protein Ql (U) 100 mg/dl Negative [facility] Urine blood detectionOrdered By: Bonny Glynn on 10-02-2022 RBC Ql (U) 25 /ul Negative [facility] Urine clarityOrdered By: Ysabel Glynn on 10-02-2022 Clarity (U) Cloudy Clear [facility] Urine color determinationOrd ered By: Bonny Glynn on 10-02-2022 Color (U) Yellow Yellow [facility] Urine glucose detectionOrder ed By: Bonny Glynn on 10-02-2022 Glucose Ql (U) 50 mg/dl Normal [facility] Urine leukocyte esterase det ection by dipstickOrdered By: Bonny Glynn on 10-02-2022 Leukocyte esterase Test strip Ql (U) 500 /ul Negative [facility] Urine pHOrdered By: Bonny orosco on 10-02-2022 pH (U) 6.0 [pH] 5.0 - 8.0 [facility] Urine specific gravity measu rementOrdered By: oBnny Glynn on 10-02-2022 Specific gravity (U) [Rel density] 1.010 1.002-1.03 0 [facility] Urobilinogen Auto test strip Ql (U)Ordered By: Bonny Glynn on 10-02-2022 Urobilinogen Ql (U) Normal mg/dl Normal [facility] CNPLigia 07-28-2022 CNPN Telephone (UCWSTR) -- KADYPEDRO ([id number]) 1945 M Date Time Provider Department 07/28/22 [...] by STEVEN RODRIGUEZ on 08/09/22 Normal [facility] Anaerobic cultureOrdered By: Bonny Glynn on 07-21-2022 Bacteria identified Anaer cx Nom (Unsp spec) No anaerobic bacteria isolated. [facility] Bacteria identified Cx Nom ( Wound)Ordered By: Bonny Glynn on 07-20-2022 Wound Culture Staphylococcus pseudintermediu [facility] Gram stain for investigation of transfusion reactionOrdered By: Bonny Glynn on 07-19-2022 Microscopic observation Gram stain Nom (Unsp spec) [facility] No Panel InformationOrdered By: Dr. Choi on 06-01-2022 Estimated GFR (MDRD) Amer 63 mL/min >60 [facility] Comment on above: GFR Calc Estimated GFR (MDRD) Non-Af Amer 52 mL/min >60 [facility] Comment on above: Non- GFR Calc Serum or plasma creatinine m easurement (mass/volume)Ordered By: Dr. Choi on 06-01-2022 Creatinine [Mass/Vol] 1.40 mg/dL 0.70-1.30 [facility] Comment on above: The validity of the calculated GFR & GFRAA in patients over 70 years has not been determined. Clinical correlation is essential. Basophil percentageon 2021 Basophil percentage < 0.9 mg/dL 0.70-1.30 [facility] Work Phone: No Panel Informationon 05-22 Bedside Estimated GFR (eGFR) > 60.0000 mL/min >60 [facility] Work Phone: Absolute lymphocyte counton 04-14-2022 Lymphocytes Auto (Unsp spec) [#/Vol] 0.64 10*3/uL 0.83-4.51 [facility] Work Phone: Basophil percentageon 2021 Basophil percentage 0 SEEN /hpf 0-5 [facility] Work Phone: Basophils/100 WBC (Bld) 0.3 % 0-1 [facility] Work Phone: Bilirubin [Mass/Vol] 0.50 mg/dL 0.20-1.00 [facility] Work Phone: [phone] Comment on above: For patients on eltr ombopag therapy, use of Dimension [place] TBIL is not recommended. Chloride [Moles/Vol] 103 mmol/L 98-107 [facility] Work Phone: [phone] Eosinophils/100 WBC (Bld) 0.5 % 0-5 [facility] Work Phone: [phone] Glucose [Mass/Vol] 46 mg/dL 74-106 [facility] Work Phone: [phone] Comment on above: Glucose result less than 50 mg/dL suggests HYPOGLYCEMIA. Neutrophils (Bld) [#/Vol] 5.0 10*3/uL 2.0-7.7 [facility] Work Phone: [phone] Neutrophils/100 WBC (Bld) 76.1 % 47-70 [facility] Work Phone: [phone] Potassium [Moles/Vol] 4.2 mmol/L 3.5-5.1 [facility] Work Phone: [phone] Protein [Mass/Vol] 8.2 g/dL 6.4-8.2 [facility] Work Phone: [phone] Sodium [Moles/Vol] 136 mmol/L 136-145 [facility] Work Phone: [phone] WBC (Bld) [#/Vol] 6.6 10*3/uL 4.4-11.0 [facility] Work Phone: Bilirubin Test strip Ql (U)o n 04-14-2022 Bilirubin Ql (U) Negative Negative [facility] Work Phone: [phone] Blood erythrocytes count (nu mber/volume)on 04-14-2022 RBC (Bld) [#/Vol] 5.00 10*6/uL 4.6-6.2 [facility] Work Phone: [phone] Blood hemoglobin measurement (mass/volume)on 04-14-2022 Hemoglobin (Bld) [Mass/Vol] 13.9 g/dL 13.0-16.5 [facility] Work Phone: [phone] Blood lymphocytes/100 leukoc yteson 04-14-2022 Lymphocytes/100 WBC (Bld) 9.7 % 19-41 [facility] Work Phone: Blood monocytes/100 leukocyt eson 04-14-2022 Monocytes/100 WBC (Bld) 12.3 % 0-10 [facility] Work Phone: [phone] Blood platelet mean volumeon 04-14-2022 Platelet mean volume (Bld) [Entitic vol] 10.5 fL 6.2-12.0 [facility] Work Phone: [phone] Determination of erythrocyte mean corpuscular volume (MCV)on 04-14-2022 MCV (RBC) [Entitic vol] 86.4 fL 80-94 [facility] Work Phone: Glucose Glucometer (BldC) [M ass/Vol]on 04-14-2022 Glucose [Mass/Vol] 113 mg/dL 74-106 [facility] Work Phone: Comment on above: MANAGEMENT OF PATIEN T CARE PER NURSING PROTOCOL Hematocrit Auto (Bld) [Volum e fraction]on 04-14-2022 Hematocrit (Bld) [Volume fraction] 43.2 % 40-54 [facility] Work Phone: INR in Blood by Coagulation assayon 04-14-2022 INR Coag (Bld) [Relative time] 1.1 {INR} [facility] Work Phone: [phone] Ketones Test strip Ql (U)on 04-14-2022 Ketones Ql (U) 5 mg/dl Negative [facility] Work Phone: [phone] Laboratory - Chemistry and C hemistry - challengeon 04-14-2022 ALP [Catalytic activity/Vol] 63 U/L 45-117 [facility] Work Phone: [phone] ALT [Catalytic activity/Vol] 29 U/L 16-61 [facility] Work Phone: [phone] CO2 [Moles/Vol] 25.0 mmol/L 21.0-32.0 [facility] Work Phone: Globulin (S) [Mass/Vol] 5.1 g/dL 2.2-4.2 [facility] Work Phone: Urea nitrogen/Creatinine [Mass ratio] 37.6 mg/mg 10-20 [facility] Work Phone: Laboratory - Coagulationon 0 04-14-2022 PT Coag (PPP) [Time] 14.0 s 11.7-14.9 [facility] Work Phone: Laboratory - Hematology and Cell countson 04-14-2022 Erythrocyte distribution width (RBC) [Entitic vol] 49.0 fL 35.1-43.9 [facility] Work Phone: Erythrocyte distribution width (RBC) [Ratio] 15.4 % 11.6-14.6 [facility] Work Phone: Immature granulocytes/100 WBC (Bld) 1.100 % 0.0-0.9 [facility] Work Phone: Comment on above: IG% - Immature Granu locytes (promyelocytes, myelocytes and metamyelocytes) > 1% indicates that a LEFT SHIFT is Present. MCH (RBC) [Entitic mass] 27.8 pg 27.0-32.0 [facility] Work Phone: Nucleated RBC/100 WBC (Bld) [Ratio] 0 % 0-5 [facility] Work Phone: MCHC Auto (RBC) [Mass/Vol]on 04-14-2022 MCHC (RBC) [Mass/Vol] 32.2 g/dL 32-36 [facility] Work Phone: [phone] Mucus LM Ql (Urine sed)on Mucus Ql (Urine sed) 0 SEEN /hpf [facility] Work Phone: Nitrite Test strip Ql (U)on 04-14-2022 Nitrite Ql (U) Negative Negative [facility] Work Phone: No Panel Informationon 04-14 Estimated Creatinine Clearance Calc 35.56 ml/min [facility] Work Phone: Estimated GFR (MDRD) Amer 55 mL/min >60 [facility] Work Phone: Comment on above: GFR Calc Estimated GFR (MDRD) Non-Af Amer 46 mL/min >60 [facility] Work Phone: Comment on above: Non- GFR Calc Platelets bldon 04-14-2022 Platelets (Bld) [#/Vol] 293 10*3/uL 150-450 [facility] Work Phone: Platelets (Bld) [#/Vol] 287 10*3/uL 150-450 [facility] Work Phone: Protein Test strip Ql (U)on 04-14-2022 Protein Ql (U) 30 mg/dl Negative [facility] Work Phone: Serum or plasma albumin kingsley urement (mass/volume)on 04-14-2022 Albumin [Mass/Vol] 3.1 g/dL 3.2-5.0 [facility] Work Phone: Serum or plasma albumin/glob ulin mass ratioon 04-14-2022 Albumin/Globulin [Mass ratio] 0.6 {ratio} 0.9-2.4 [facility] Work Phone: Serum or plasma calcium kingsley urement (mass/volume)on 04-14-2022 Calcium [Mass/Vol] 9.9 mg/dL 8.5-10.1 [facility] Work Phone: Serum or plasma creatinine m easurement (mass/volume)on 04-14-2022 Creatinine [Mass/Vol] 1.57 mg/dL 0.70-1.30 [facility] Work Phone: Comment on above: The validity of the calculated GFR & GFRAA in patients over 70 years has not been determined. Clinical correlation is essential. Serum or plasma urea nitroge n measurement (mass/volume)on 04-14-2022 Urea nitrogen [Mass/Vol] 59 mg/dL 7-18 [facility] Work Phone: Squamous epithelial cells de tection in urine sediment by light microscopyon 04-14-2022 Epithelial cells.squamous LM Ql (Urine sed) 0-5 SEEN /hpf 0-5 [facility] Work Phone: Thin prep Papanicolaou smear with manual screeningon 04-14-2022 Thin prep Papanicolaou smear with manual screening 30 U/L 15-37 [facility] Work Phone: Thin prep Papanicolaou smear with manual screening 8 5-15 [facility] Work Phone: [phone] Urine blood detectionon - RBC Ql (U) Negative Negative [facility] Work Phone: [phone] RBC Ql (U) 0 SEEN /hpf 0-5 [facility] Work Phone: Urine clarityon 04-14-2022 Clarity (U) Clear Clear [facility] Work Phone: Urine color determinationon 04-14-2022 Color (U) Yellow Yellow [facility] Work Phone: Urine glucose detectionon Glucose Ql (U) Normal mg/dl Normal [facility] Work Phone: Urine leukocyte esterase det ection by dipstickon 04-14-2022 Leukocyte esterase Test strip Ql (U) 25 /ul Negative [facility] Work Phone: [phone] Urine pHon 04-14-2022 pH (U) 6.0 [pH] 5.0 - 8.0 [facility] Work Phone: Urine sediment bacteria coun t by microscopy (number/high power field)on 04-14-2022 Bacteria LM.HPF (Urine sed) [#/Area] 0 /[HPF] None Seen [facility] Work Phone: [phone] Urine specific gravity measu rementon 04-14-2022 Specific gravity (U) [Rel density] 1.010 1.002-1.03 0 [facility] Work Phone: [phone] Urobilinogen Auto test strip Ql (U)on 04-14-2022 Urobilinogen Ql (U) Normal mg/dl Normal [facility] Work Phone: Basophil percentageon 2021 Creatinine [Mass/Vol] 1.4 mg/dL 0.70-1.30 [facility] Work Phone: Laboratory - Chemistry and C hemistry - challengeon 04-12-2022 GFR/1.73 sq M.predicted among non-blacks MDRD (S/P/Bld) [Vol rate/Area] 50.0000 mL/min/{1.73_m2} >60 [facility] Work Phone: CNPLigia 04-06-2022 [facility] Telephone ([facility]) -- PEDRO HILLMAN ([id number]) 1945 M Date Time Provider Department 04/06/22 CARLOS WHELAN [facility] During your visit today, we [...] unable to reach patient and 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 Mailbox full/Mailbox not set up/ Number incorrect. Please try again later. Jenny Mock 04/08/2022 9:23 AM Signed left message on machine to give call back, different number from pharmacy. [phone]. Jenny Mock 04/08/2022 2:56 PM Signed Notified [...] Status:Closed by JENNY MOCK on 04/08/22 Normal [facility] Bacteria Ur Culton 2 Bacteria identified Cx Nom (U) [id number] Abnormal [facility] Comment on above: Order Comment: Speci men Type: URINE SPECIMEN Ordering Facility: [facility] Address: [address] [place] [id number] Result Comment: >=10 0,000 CFU/ml Streptococcus mitis-oralis group No further workup Performed By: #### 6 30-4 #### [facility] CLIA [id number] [address] [place] [address] [place] CNOVon 04-05-2022 CNOV Office Visit ([facility]WSTR ) -- KADYPEDRO DIAZ ([id number]) 1945 M Date Time Provider Department 04/05/22 1:15 PM STEVEN RODRIGUEZ [facility] During your visit today, we recorded the following information about you: Temperature Pulse Respiration Blood pressure 101.6 degrees 76/minute 16/minute 122/76 Weight 87.1 kg Steven Rodriguez APRN.STREET CLEANING EQUIPMENT OPERATOR 04/05/2022 3:51 PM Signed Subjective HPI [...] up a (more content not included)... Normal [facility] 04-05-2022 [facility] Telephone ([facility]WSTR) -- PEDRO HILLMAN ([id number]) 1945 M Date Time Provider Department 04/05/22 STEVEN RODRIGUEZ [facility] During your visit today, we recorded the following information about you: Steven Rodriguez APRN.CNP 04/05/2022 2:59 PM Signed Radiology report faxed to patient's PCP Dr. Tonio Fajardo at [phone]. Confirmation of fax received. Patient was advised to call Dr. Fajardo today for a follow up appointment. Steven Rodriguez APRN.STREET CLEANING EQUIPMENT OPERATOR Allergies As of Date: 04/05/2022 Noted Allergy [...] by STEVEN RODRIGUEZ on 04/05/22 Normal [facility] No Panel InformationOrdered By: [facility] Provider on 04-05-2022 Radiology Result ACTIONABLE Abnormal [facility] Comment on above: This report contains an [...] (POC)on 2021 BILIRUBIN UA (POCT) Negative Negative [facility] CLARITY UA (POCT) Cloudy [facility] COLOR UA (POCT) Dark yellow [facility] GLUCOSE UA (POCT) Negative Negative mg/dL [facility] HEMOGLOBIN/BLOOD UA (POCT) Small Abnormal Negative [facility] KETONE UA (POCT) Negative Negative mg/dL [facility] LEUKOCYTES UA (POCT) Large Abnormal Negative [facility] NITRITE UA (POCT) Negative Negative [facility] PH UA (POCT) 6.0 4.5 - 8.0 [facility] Protein Ql (U) 100 mg/dL Abnormal Negative mg/dL [facility] SPECIFIC GRAVITY UA (POCT) 1.020 1.005 - 1.030 [facility] UROBILINOGEN UA (POCT) 0.2 E.U./dL Umm l E.U./dL [facility] XR CHEST 2V FRONTAL/LATon XR CHEST 2V [...] be communicated with the ordering provider via [employer] staff message or phone message by [employer] within 2 business days of report finalization. Algorithms for management of incidental imaging findings can be found on the [facility] Intranet Sharepoint site at: [email or web address] ng%20Incidental%20Findi ngs%20at%20Imaging/Forms/A llItems.aspx High Voltage Electrician: PSCB Transcribe Date/Time: Apr 05 2022 2:11P Dictated by : SANDEEP ORTIZ MD This examination was interpreted and the report reviewed and electronically signed by: SANDEEP ORTIZ MD on Apr 05 2022 2:13PM EST [id number] ACTIONABLE Invalid Interpretation Code [facility] XR Chest PA and LateralOrder ed By: [facility] Provider on 04-05-2022 Interpretation and review of laboratory results Abnormal [facility] XR Chest PA and Lateralon IMPRESSION: 4.5 [...] be communicated with the ordering provider via [employer] staff message or phone message by [employer] within 2 business days of report finalization. Algorithms for management of incidental imaging findings can be found on the [facility] Intranet Sharepoint site at: [email or web address] ng%20Incidental%20Findi ngs%20at%20Imaging/Forms/A llItems.aspx High Voltage Electrician: JONATHAN Transcribe Date/Time: Apr 05 2022 2:11P Dictated by : SANDEEP ORTIZ MD This examination was interpreted and the report reviewed and electronically signed by: SANDEEP ORTIZ MD on Apr 05 2022 2:13PM [facility] * * *Final Report* [...] be communicated with the ordering provider via [employer] staff message or phone message by [employer] within 2 business days of report finalization. Algorithms for management of incidental imaging findings can be found on the [facility] Intranet Sharepoint site at: [email or web address] ng%20Incidental%20Findi ngs%20at%20Imaging/Forms/A llItems.aspx High Voltage Electrician: JONATHAN Transcribe Date/Time: Apr 05 2022 2:11P Dictated by : SANDEEP ORTIZ MD This examination was interpreted and the report reviewed and electronically signed by: SANDEEP ORTIZ MD on Apr 05 2022 2:13PM EST [facility] Radiology Study observation (narrative) [facility] Anaerobic culture Bacteria identified Anaer cx Nom (Unsp spec) No anaerobic bacteria isolated. [facility] Work Phone: Bacteria identified Anaer cx Nom (Unsp spec) Anaerobic Culture Anaerobic cocci [facility] Work Phone: Bacteria identified Cx Nom ( Wound) Wound Culture Staphylococcus pseudintermediu [facility] Work Phone: Wound Culture Staphylococcus saprophyticus [facility] Work Phone: Gram stain for investigation of transfusion reaction Microscopic observation Gram stain Nom (Unsp spec) [facility] Work Phone: Vital Signs Date Time Vital Sign Value Performing Clinician Facility 04-19-2025 11:03-0400 Body temperature 97.9 [degF] Dr. Tonio Fajardo DO Work Phone: [facility] 04-19-2025 11:03-0400 Diastolic blood pressure 66 mm[Hg] Dr. Tonio Fajardo DO Work Phone: [facility] 04-19-2025 11:03-0400 Heart rate 102 /min Dr. Tonio Fajardo DO Work Phone: [facility] 04-19-2025 11:03-0400 Respiratory rate 16 /min Dr. Tonio Fajardo DO Work Phone: [facility] 04-19-2025 11:03-0400 SaO2% (BldA) [Mass fraction] 100 % Dr. Tonio Fajardo DO Work Phone: [facility] 04-19-2025 11:03-0400 Systolic blood pressure 126 mm[Hg] Dr. Tonio Fajardo DO Work Phone: [facility] 04-19-2025 09:54-0400 Diastolic blood pressure 68 mm[Hg] Dr. Tonio Fajardo DO Work Phone: [facility] 04-19-2025 09:54-0400 Heart rate 103 /min Dr. Tonio Fajardo DO Work Phone: [facility] 04-19-2025 09:54-0400 Systolic blood pressure 85 mm[Hg] Dr. Tonio Fajardo DO Work Phone: [facility] 04-19-2025 09:45-0400 Inhaled oxygen flow rate 3 L/min Dr. Tonio Fajardo DO Work Phone: [facility] 04-19-2025 09:45-0400 Respiratory rate 20 /min Dr. Tonio Fajardo DO Work Phone: [facility] 04-19-2025 09:45-0400 SaO2% (BldA) [Mass fraction] 100 % Dr. Tonio Fajardo DO Work Phone: [facility] 04-19-2025 08:22-0400 Body height 167.[address] Tonio Fajardo DO Work Phone: [facility] 04-19-2025 08:22-0400 Body mass index (BMI) [Ratio] 25.7 kg/m2 Dr. Tonio Fajardo DO Work Phone: [facility] 04-19-2025 08:22-0400 Body temperature 97.9 [degF] Dr. Tonio Fajardo DO Work Phone: [facility] 04-19-2025 08:22-0400 Body weight 72.[address] Tonio Fajardo DO Work Phone: [facility] 04-19-2025 08:08-0400 Heart rate 102 /min Dr. Tonio Fajardo DO Work Phone: [facility] 04-19-2025 07:54-0400 Body temperature 97.4 [degF] Dr. Tonio Fajardo DO Work Phone: [facility] 04-19-2025 07:54-0400 Diastolic blood pressure 67 mm[Hg] Dr. Tonio Fajardo DO Work Phone: [facility] 04-19-2025 07:54-0400 Inhaled oxygen flow rate 3 L/min Dr. Tonio Fajardo DO Work Phone: [facility] 04-19-2025 07:54-0400 Respiratory rate 18 /min Dr. Tonio Fajardo DO Work Phone: [facility] 04-19-2025 07:54-0400 SaO2% (BldA) [Mass fraction] 100 % Dr. Tonio Fajardo DO Work Phone: [facility] 04-19-2025 07:54-0400 Systolic blood pressure 118 mm[Hg] Dr. Tonio Fajardo DO Work Phone: [facility] 04-18-2025 11:58-0400 Body weight 67.[address] Tonio Fajardo DO Work Phone: [facility] 04-17-2025 18:17-0400 Body mass index (BMI) [Ratio] 23.8 kg/m2 Dr. Tonio Fajardo DO Work Phone: [facility] 04-13-2025 02:37-0400 Inhaled oxygen flow rate 15 L/min Dr. Tonio Fajardo DO Work Phone: [facility] 04-13-2025 02:37-0400 SaO2% (BldA) [Mass fraction] 100 % Dr. Tonio Fajadro DO Work Phone: [facility] 04-13-2025 00:56-0400 Body temperature 97.8 [degF] Dr. Tonio Fajardo DO Work Phone: [facility] 04-13-2025 00:56-0400 Diastolic blood pressure 71 mm[Hg] Dr. Tonio Fajardo DO Work Phone: [facility] 04-13-2025 00:56-0400 Heart rate 106 /min Dr. Tonio Fajardo DO Work Phone: [facility] 04-13-2025 00:56-0400 Respiratory rate 21 /min Dr. Tonio Fajardo DO Work Phone: [facility] 04-13-2025 00:56-0400 Systolic blood pressure 129 mm[Hg] Dr. Tonio Fajardo DO Work Phone: [facility] 04-12-2025 23:03-0400 Body temperature 97.8 [degF] Dr. Tonio Fajardo DO Work Phone: [facility] 04-12-2025 23:03-0400 Diastolic blood pressure 80 mm[Hg] Dr. Tonio Fajardo DO Work Phone: [facility] 04-12-2025 23:03-0400 Heart rate 109 /min Dr. Tonio Fajardo DO Work Phone: [facility] 04-12-2025 23:03-0400 Respiratory rate 21 /min Dr. Tonio Fajardo DO Work Phone: [facility] 04-12-2025 23:03-0400 SaO2% (BldA) [Mass fraction] 100 % Dr. Tonio Fajardo DO Work Phone: [facility] 04-12-2025 23:03-0400 Systolic blood pressure 142 mm[Hg] Dr. Tonio Fajardo DO Work Phone: [facility] 04-12-2025 22:00-0400 Inhaled oxygen flow rate 15 L/min Dr. Tonio Fajardo DO Work Phone: [facility] 04-12-2025 18:05-0400 Body height 167.[address] Tonio Fajardo DO Work Phone: [facility] 04-12-2025 18:05-0400 Body mass index (BMI) [Ratio] 25.4 kg/m2 Dr. Tonio Fajardo DO Work Phone: [facility] 04-12-2025 18:05-0400 Body weight 71.[address] Tonio Fajardo DO Work Phone: [facility] 04-12-2025 16:46-0400 Heart rate 115 /min Dr. Tonio Fajardo DO Work Phone: [facility] 04-12-2025 15:40-0400 Diastolic blood pressure 74 mm[Hg] Dr. Tonio Fajardo DO Work Phone: [facility] 04-12-2025 15:40-0400 Inhaled oxygen flow rate 3 L/min Dr. Tonio Fajardo DO Work Phone: [facility] 04-12-2025 15:40-0400 Respiratory rate 22 /min Dr. Tonio Fajardo DO Work Phone: [facility] 04-12-2025 15:40-0400 SaO2% (BldA) [Mass fraction] 96 % Dr. Toino Fajardo DO Work Phone: [facility] 04-12-2025 15:40-0400 Systolic blood pressure 146 mm[Hg] Dr. Tonio Fajardo DO Work Phone: [facility] 04-12-2025 08:52-0400 Body temperature 96.7 [degF] Dr. Tonio Fajardo DO Work Phone: [facility] 04-11-2025 12:48-0400 Body weight 70.[address] Tonio Fajardo DO Work Phone: [facility] 04-10-2025 23:00-0400 Body mass index (BMI) [Ratio] 25.2 kg/m2 Dr. Tonio Fajardo DO Work Phone: [facility] 04-10-2025 16:21-0400 Body temperature 98.6 [degF] Dr. Tonio Fajardo DO Work Phone: [facility] 04-10-2025 16:21-0400 Diastolic blood pressure 82 mm[Hg] Dr. Tonio Fajardo DO Work Phone: [facility] 04-10-2025 16:21-0400 Heart rate 106 /min Dr. Tonio Fajardo DO Work Phone: [facility] 04-10-2025 16:21-0400 Inhaled oxygen flow rate 3 L/min Dr. Tonio Fajardo DO Work Phone: [facility] 04-10-2025 16:21-0400 Respiratory rate 18 /min Dr. Tonio Fajardo DO Work Phone: [facility] 04-10-2025 16:21-0400 SaO2% (BldA) [Mass fraction] 100 % Dr. Tonio Fajardo DO Work Phone: [facility] 04-10-2025 16:21-0400 Systolic blood pressure 142 mm[Hg] Dr. Tonio Fajardo DO Work Phone: [facility] 04-10-2025 14:30-0400 Body height 167.[address] Tonio Fajardo DO Work Phone: [facility] 04-10-2025 14:30-0400 Body weight 75.[address] Tonio Fajardo DO Work Phone: [facility] 04-10-2025 05:10-0400 Body mass index (BMI) [Ratio] 26.7 kg/m2 Dr. Tonio Fajardo DO Work Phone: [facility] 04-07-2025 00:00-0400 Inhaled oxygen concentration 35 % Dr. Tonio Fajardo DO Work Phone: [facility] 04-05-2025 20:00-0400 Diastolic blood pressure 65 mm[Hg] Dr. Tonio Fajardo DO Work Phone: [facility] 04-05-2025 20:00-0400 Heart rate 103 /min Dr. Tonio Fajardo DO Work Phone: [facility] 04-05-2025 20:00-0400 Inhaled oxygen flow rate 4 L/min Dr. Tonio Fajardo DO Work Phone: [facility] 04-05-2025 20:00-0400 Respiratory rate 25 /min Dr. Tonio Fajardo DO Work Phone: [facility] 04-05-2025 20:00-0400 SaO2% (BldA) [Mass fraction] 92 % Dr. Tonio Fajardo DO Work Phone: [facility] 04-05-2025 20:00-0400 Systolic blood pressure 119 mm[Hg] Dr. Tonio Fajardo DO Work Phone: [facility] 04-05-2025 19:12-0400 Body temperature 98 [degF] Dr. Tonio Fajardo DO Work Phone: [facility] 04-05-2025 16:41-0400 Body height 167.[address] Tonio Fajardo DO Work Phone: [facility] 04-05-2025 16:41-0400 Body mass index (BMI) [Ratio] 28 kg/m2 Dr. Tonio Fajardo DO Work Phone: [facility] 04-05-2025 16:41-0400 Body weight 78.[address] Tonio Fajardo DO Work Phone: [facility] 03-17-2025 13:07-0400 Body height 167.[address] Tonio Fajardo DO Work Phone: [facility] 03-17-2025 13:07-0400 Body mass index (BMI) [Ratio] 26.6 kg/m2 Dr. Tonio Fajardo DO Work Phone: [facility] 03-17-2025 13:07-0400 Body weight 74.[address] Tonio Fajardo DO Work Phone: [facility] 03-17-2025 13:07-0400 Diastolic blood pressure 60 mm[Hg] Dr. Tonio Fajardo DO Work Phone: [facility] 03-17-2025 13:07-0400 Heart rate 101 /min Dr. Tonio Fajardo DO Work Phone: [facility] 03-17-2025 13:07-0400 Inhaled oxygen flow rate 3 L/min Dr. Tonio Fajardo DO Work Phone: [facility] 03-17-2025 13:07-0400 Respiratory rate 20 /min Dr. Tonio Fajardo DO Work Phone: [facility] 03-17-2025 13:07-0400 SaO2% (BldA) [Mass fraction] 96 % Dr. Tonio Fajardo DO Work Phone: [facility] 03-17-2025 13:07-0400 Systolic blood pressure 124 mm[Hg] Dr. Tonio Fajardo DO Work Phone: [facility] 03-15-2025 18:32-0400 Body temperature 98.1 [degF] Dr. Tonio Fajardo DO Work Phone: [facility] 03-15-2025 18:32-0400 Diastolic blood pressure 71 mm[Hg] Dr. Tonio Fajardo DO Work Phone: [facility] 03-15-2025 18:32-0400 Heart rate 101 /min Dr. Tonio Fajardo DO Work Phone: [facility] 03-15-2025 18:32-0400 Respiratory rate 18 /min Dr. Tonio Fajardo DO Work Phone: [facility] 03-15-2025 18:32-0400 SaO2% (BldA) [Mass fraction] 93 % Dr. Tonio Fajardo DO Work Phone: [facility] 03-15-2025 18:32-0400 Systolic blood pressure 168 mm[Hg] Dr. Tonio Fajardo DO Work Phone: [facility] 03-15-2025 16:58-0400 Body height 167.[address] Tonio Fajardo DO Work Phone: [facility] 03-15-2025 16:58-0400 Body mass index (BMI) [Ratio] 27.8 kg/m2 Dr. Tonio Fajardo DO Work Phone: [facility] 03-15-2025 16:58-0400 Body weight 78.[address] Tonio Fajardo DO Work Phone: [facility] 03-15-2025 16:58-0400 Inhaled oxygen flow rate 3 L/min Dr. Tonio Fajardo DO Work Phone: [facility] 03-09-2025 16:22-0400 Body temperature 98.5 [degF] Dr. Tonio Fajardo DO Work Phone: [facility] 03-09-2025 16:22-0400 Heart rate 78 /min Dr. Tonio Fajardo DO Work Phone: [facility] 03-09-2025 16:22-0400 Inhaled oxygen flow rate 3 L/min Dr. Tonio Fajardo DO Work Phone: [facility] 03-09-2025 16:22-0400 Respiratory rate 20 /min Dr. Tonio Fajardo DO Work Phone: [facility] 03-09-2025 16:22-0400 SaO2% (BldA) [Mass fraction] 92 % Dr. Tonio Fajardo DO Work Phone: [facility] 03-09-2025 11:48-0400 Inhaled oxygen flow rate 2 L/min Dr. Tonio Fajardo DO Work Phone: [facility] 03-09-2025 11:48-0400 SaO2% (BldA) [Mass fraction] 79 % Dr. Tonio Fajardo DO Work Phone: [facility] 03-09-2025 11:11-0400 Body height 167.[address] Tonio Fajardo DO Work Phone: [facility] 03-09-2025 11:11-0400 Body weight 78.[address] Tonio Fajardo DO Work Phone: [facility] 03-09-2025 10:00-0400 Diastolic blood pressure 51 mm[Hg] Dr. Tonio Fajardo DO Work Phone: [facility] 03-09-2025 10:00-0400 Heart rate 97 /min Dr. Tonio Fajardo DO Work Phone: [facility] 03-09-2025 10:00-0400 Systolic blood pressure 129 mm[Hg] Dr. Tonio Fajardo DO Work Phone: [facility] 03-09-2025 05:00-0400 Body mass index (BMI) [Ratio] 28 kg/m2 Dr. Tonio Fajardo DO Work Phone: [facility] 03-04-2025 20:49-0400 Body temperature 98.6 [degF] Dr. Tonio Fajardo DO Work Phone: [facility] 03-04-2025 20:49-0400 Diastolic blood pressure 70 mm[Hg] Dr. Tonio Fajardo DO Work Phone: [facility] 03-04-2025 20:49-0400 Heart rate 114 /min Dr. Tonio Fajardo DO Work Phone: [facility] 03-04-2025 20:49-0400 Respiratory rate 20 /min Dr. Tonio Fajardo DO Work Phone: [facility] 03-04-2025 20:49-0400 SaO2% (BldA) [Mass fraction] 100 % Dr. Tonio Fajardo DO Work Phone: [facility] 03-04-2025 20:49-0400 Systolic blood pressure 153 mm[Hg] Dr. Tonio Fajardo DO Work Phone: [facility] 03-04-2025 20:00-0400 Inhaled oxygen flow rate 4 L/min Dr. Tonio Fajardo DO Work Phone: [facility] 03-04-2025 15:01-0400 Body height 167.[address] Tonio Fajardo DO Work Phone: [facility] 03-04-2025 15:01-0400 Body mass index (BMI) [Ratio] 25.9 kg/m2 Dr. Tonio Fajardo DO Work Phone: [facility] 03-04-2025 15:01-0400 Body weight 73.[address] Tonio Fajardo DO Work Phone: [facility] 11-06-2024 14:45-0400 Body height 167.[address] Tonio Fajardo DO Work Phone: [facility] 11-06-2024 14:45-0400 Body mass index (BMI) [Ratio] 28.5 kg/m2 Dr. Tonio Fajardo DO Work Phone: [facility] 11-06-2024 14:45-0400 Body temperature 98.5 [degF] Dr. Tonio Fajardo DO Work Phone: [facility] 11-06-2024 14:45-0400 Body weight 80.[address] Tonio Fajardo DO Work Phone: [facility] 11-06-2024 14:45-0400 Diastolic blood pressure 55 mm[Hg] Dr. Tonio Fajardo DO Work Phone: [facility] 11-06-2024 14:45-0400 Heart rate 55 /min Dr. Tonio Fajardo DO Work Phone: [facility] 11-06-2024 14:45-0400 Respiratory rate 18 /min Dr. Tonio Fajardo DO Work Phone: [facility] 11-06-2024 14:45-0400 SaO2% (BldA) [Mass fraction] 95 % Dr. Tonio Fajardo DO Work Phone: [facility] 11-06-2024 14:45-0400 Systolic blood pressure 116 mm[Hg] Dr. Tonio Fajardo DO Work Phone: [facility] 10-23-2024 09:06-0500 Body mass index (BMI) [Ratio] 28.5 kg/m2 Dr. Tonio Fajardo DO Work Phone: [facility] 10-23-2024 09:06-0500 Body temperature 97.4 [degF] Dr. Tonio Fajardo DO Work Phone: [facility] 10-23-2024 09:06-0500 Body weight 80.[address] Tonio Fajardo DO Work Phone: [facility] 10-23-2024 09:06-0500 Diastolic blood pressure 56 mm[Hg] Dr. Tonio Fajardo DO Work Phone: [facility] 10-23-2024 09:06-0500 Heart rate 52 /min Dr. Tonio Fajardo DO Work Phone: [facility] 10-23-2024 09:06-0500 Inhaled oxygen flow rate 3 L/min Dr. Tonio Fajardo DO Work Phone: [facility] 10-23-2024 09:06-0500 Respiratory rate 26 /min Dr. Tonio Fajardo DO Work Phone: [facility] 10-23-2024 09:06-0500 SaO2% (BldA) [Mass fraction] 97 % Dr. Tonio Fajardo DO Work Phone: [facility] 10-23-2024 09:06-0500 Systolic blood pressure 128 mm[Hg] Dr. Tonio Fajardo DO Work Phone: [facility] 10-16-2024 13:24-0500 Body height 167.[address] Tonio Fajardo DO Work Phone: [facility] 10-16-2024 13:24-0500 Body weight 78.[address] Tonio Fajardo DO Work Phone: [facility] 10-16-2024 13:24-0500 Heart rate 98 /min Dr. Tonio Fajardo DO Work Phone: [facility] 10-16-2024 13:24-0500 Inhaled oxygen flow rate 2 L/min Dr. Tonio Fajardo DO Work Phone: [facility] 10-16-2024 13:24-0500 SaO2% (BldA) [Mass fraction] 96 % Dr. Tonio Fajardo DO Work Phone: [facility] 09-25-2024 12:59-0500 Body mass index (BMI) [Ratio] 27.7 kg/m2 Dr. Tonio Fajardo DO Work Phone: [facility] 09-25-2024 12:59-0500 Body weight 80.[address] Tonio Fajardo DO Work Phone: [facility] 09-25-2024 12:59-0500 Diastolic blood pressure 75 mm[Hg] Dr. Tonio Fajardo DO Work Phone: [facility] 09-25-2024 12:59-0500 Heart rate 99 /min Dr. Tonio Fajardo DO Work Phone: [facility] 09-25-2024 12:59-0500 Respiratory rate 18 /min Dr. Tonio Fajardo DO Work Phone: [facility] 09-25-2024 12:59-0500 SaO2% (BldA) [Mass fraction] 90 % Dr. Tonio Fajardo DO Work Phone: [facility] 09-25-2024 12:59-0500 Systolic blood pressure 120 mm[Hg] Dr. Tonio Fajardo DO Work Phone: [facility] 11-12-2023 13:22-0400 Body height 170.[address] Tonio Fajardo Work Phone: [facility] 11-12-2023 13:22-0400 Body mass index (BMI) [Ratio] 28 kg/m2 Dr. Tonio Fajardo Work Phone: [facility] 11-12-2023 13:22-0400 Body temperature 97.9 [degF] Dr. Tonio Fajardo Work Phone: [facility] 11-12-2023 13:22-0400 Body weight 81.[address] Tonio Fajardo Work Phone: [facility] 11-12-2023 13:22-0400 Diastolic blood pressure 62 mm[Hg] Dr. Tonio Fajardo Work Phone: [facility] 11-12-2023 13:22-0400 Heart rate 103 /min Dr. Tonio Fajardo Work Phone: [facility] 11-12-2023 13:22-0400 Respiratory rate 18 /min Dr. Tonio Fajardo Work Phone: [facility] 11-12-2023 13:22-0400 SaO2% (BldA) [Mass fraction] 98 % Dr. Tonio Fajardo Work Phone: [facility] 11-12-2023 13:22-0400 Systolic blood pressure 97 mm[Hg] Dr. Tonio Fajardo Work Phone: [facility] 10-31-2023 12:05-0400 Body mass index (BMI) [Ratio] 27.3 kg/m2 Dr. Tonio Fajardo Work Phone: [facility] 10-31-2023 12:05-0400 Body temperature 98.2 [degF] Dr. Tonio Fajardo Work Phone: [facility] 10-31-2023 12:05-0400 Body weight 79.[address] Tonio Fajardo Work Phone: [facility] 10-31-2023 12:05-0400 Diastolic blood pressure 71 mm[Hg] Dr. Tonio Fajardo Work Phone: [facility] 10-31-2023 12:05-0400 Heart rate 78 /min Dr. Tonio Fajardo Work Phone: [facility] 10-31-2023 12:05-0400 Respiratory rate 18 /min Dr. Tonio Fajardo Work Phone: [facility] 10-31-2023 12:05-0400 SaO2% (BldA) [Mass fraction] 94 % Dr. Tonio Fajardo Work Phone: [facility] 10-31-2023 12:05-0400 Systolic blood pressure 119 mm[Hg] Dr. Tonio Fajardo Work Phone: [facility] 10-18-2023 14:51-0500 Body mass index (BMI) [Ratio] 28 kg/m2 Dr. Tonio Fajardo Work Phone: [facility] 10-18-2023 14:51-0500 Body temperature 98.9 [degF] Dr. Tonio Fajardo Work Phone: [facility] 10-18-2023 14:51-0500 Body weight 81.[address] Tonio Fajardo Work Phone: [facility] 10-18-2023 14:51-0500 Diastolic blood pressure 60 mm[Hg] Dr. Tonio Fajardo Work Phone: [facility] 10-18-2023 14:51-0500 Heart rate 98 /min Dr. Tonio Fajardo Work Phone: [facility] 10-18-2023 14:51-0500 Respiratory rate 18 /min Dr. Tonio Fajardo Work Phone: [facility] 10-18-2023 14:51-0500 SaO2% (BldA) [Mass fraction] 96 % Dr. Tonio Fajardo Work Phone: [facility] 10-18-2023 14:51-0500 Systolic blood pressure 114 mm[Hg] Dr. Tonio Fajardo Work Phone: [facility] 08-29-2023 12:52-0500 Body height 170.[address] Tonio Fajardo Work Phone: [facility] 08-29-2023 12:52-0500 Body mass index (BMI) [Ratio] 27.8 kg/m2 Dr. Tonio Fajardo Work Phone: [facility] 08-29-2023 12:52-0500 Body weight 80.[address] Tonio Fajardo Work Phone: [facility] 08-29-2023 12:52-0500 Diastolic blood pressure 71 mm[Hg] Dr. Tonio Fajardo Work Phone: [facility] 08-29-2023 12:52-0500 Heart rate 95 /min Dr. Tonio Fajardo Work Phone: [facility] 08-29-2023 12:52-0500 Respiratory rate 18 /min Dr. Tonio Fajardo Work Phone: [facility] 08-29-2023 12:52-0500 SaO2% (BldA) [Mass fraction] 97 % Dr. Tonio Fajarod Work Phone: [facility] 08-29-2023 12:52-0500 Systolic blood pressure 111 mm[Hg] Dr. Tonio Fajardo Work Phone: [facility] 07-25-2023 07:50-0500 Body height 170.[address] Tonio Fajardo Work Phone: [facility] 07-25-2023 07:50-0500 Body mass index (BMI) [Ratio] 29.4 kg/m2 Dr. Tonio Fajardo Work Phone: [facility] 07-25-2023 07:50-0500 Body temperature 96.2 [degF] Dr. Tonio Fajardo Work Phone: [facility] 07-25-2023 07:50-0500 Body weight 85.[address] Tonio Fajardo Work Phone: [facility] 07-25-2023 07:50-0500 Diastolic blood pressure 75 mm[Hg] Dr. Tonio Fajardo Work Phone: [facility] 07-25-2023 07:50-0500 Heart rate 53 /min Dr. Tonio Fajardo Work Phone: [facility] 07-25-2023 07:50-0500 Respiratory rate 20 /min Dr. Tonio Fajardo Work Phone: [facility] 07-25-2023 07:50-0500 SaO2% (BldA) [Mass fraction] 82 % Dr. Tonio Fajardo Work Phone: [facility] 07-25-2023 07:50-0500 Systolic blood pressure 119 mm[Hg] Dr. Tonio Fajardo Work Phone: [facility] 06-08-2023 14:33-0400 Body temperature 97.1 [degF] Dr. Tonio Fajardo Work Phone: [facility] 06-08-2023 14:33-0400 Diastolic blood pressure 67 mm[Hg] Dr. Tonio Fajardo Work Phone: [facility] 06-08-2023 14:33-0400 Heart rate 103 /min Dr. Tonio Fajardo Work Phone: [facility] 06-08-2023 14:33-0400 Respiratory rate 14 /min Dr. Tonio Fajardo Work Phone: [facility] 06-08-2023 14:33-0400 SaO2% (BldA) [Mass fraction] 93 % Dr. Tonio Fajardo Work Phone: [facility] 06-08-2023 14:33-0400 Systolic blood pressure 133 mm[Hg] Dr. Tonio Fajardo Work Phone: [facility] 06-08-2023 12:20-0400 Body height 170.[address] Tonio Fajardo Work Phone: [facility] 06-08-2023 12:20-0400 Body mass index (BMI) [Ratio] 29.3 kg/m2 Dr. Tonio Fajardo Work Phone: [facility] 06-08-2023 12:20-0400 Body weight [address] Tonio Fajardo Work Phone: [facility] 05-02-2023 13:50-0400 Diastolic blood pressure 63 mm[Hg] Dr. Tonio Fajardo Work Phone: [facility] 05-02-2023 13:50-0400 Heart rate 97 /min Dr. Tonio Fajardo Work Phone: [facility] 05-02-2023 13:50-0400 Respiratory rate 18 /min Dr. Tonio Fajardo Work Phone: [facility] 05-02-2023 13:50-0400 Systolic blood pressure 113 mm[Hg] Dr. Tonio Fajardo Work Phone: [facility] 04-25-2023 14:04-0400 Body temperature 97.9 [degF] Dr. Tonio Fajardo Work Phone: [facility] 04-18-2023 13:24-0400 Body temperature 97.5 [degF] Dr. Tonio Fajardo Work Phone: [facility] 04-18-2023 13:24-0400 Diastolic blood pressure 77 mm[Hg] Dr. Tonio Fajardo Work Phone: [facility] 04-18-2023 13:24-0400 Heart rate 109 /min Dr. Tonio Fajardo Work Phone: [facility] 04-18-2023 13:24-0400 Respiratory rate 16 /min Dr. Tonio Fajardo Work Phone: [facility] 04-18-2023 13:24-0400 Systolic blood pressure 141 mm[Hg] Dr. Tonio Fajardo Work Phone: [facility] 04-17-2023 11:08-0400 Body height 167.[address] Tonio Fajardo Work Phone: [facility] 04-17-2023 11:08-0400 Body mass index (BMI) [Ratio] 30.2 kg/m2 Dr. Tonio Fajardo Work Phone: [facility] 04-17-2023 11:08-0400 Body temperature 98.6 [degF] Dr. Tonio Fajardo Work Phone: [facility] 04-17-2023 11:08-0400 Body weight 84.[address] Tonio Fajardo Work Phone: [facility] 04-17-2023 11:08-0400 Diastolic blood pressure 87 mm[Hg] Dr. Tonio Fajardo Work Phone: [facility] 04-17-2023 11:08-0400 Heart rate 87 /min Dr. Tonio Fajardo Work Phone: [facility] 04-17-2023 11:08-0400 Respiratory rate 18 /min Dr. Tonio Fajardo Work Phone: [facility] 04-17-2023 11:08-0400 SaO2% (BldA) [Mass fraction] 95 % Dr. Tonio Fajardo Work Phone: [facility] 04-17-2023 11:08-0400 Systolic blood pressure 130 mm[Hg] Dr. Tonio Fajardo Work Phone: [facility] 04-02-2023 11:24-0400 Body temperature 98.6 [degF] Dr. Tonio Fajardo Work Phone: [facility] 04-02-2023 11:24-0400 Diastolic blood pressure 55 mm[Hg] Dr. Tonio Fajardo Work Phone: [facility] 04-02-2023 11:24-0400 Heart rate 101 /min Dr. Tonio Fajardo Work Phone: [facility] 04-02-2023 11:24-0400 Respiratory rate 20 /min Dr. Tonio Fajardo Work Phone: [facility] 04-02-2023 11:24-0400 Systolic blood pressure 114 mm[Hg] Dr. Tonio Fajardo Work Phone: [facility] 03-19-2023 10:28-0400 Body temperature 98.2 [degF] Dr. Tonio Fajardo Work Phone: [facility] 03-19-2023 10:28-0400 Diastolic blood pressure 59 mm[Hg] Dr. Tonio Fajardo Work Phone: [facility] 03-19-2023 10:28-0400 Heart rate 106 /min Dr. Tonio Fajardo Work Phone: [facility] 03-19-2023 10:28-0400 Respiratory rate 20 /min Dr. Tonio Fajardo Work Phone: [facility] 03-19-2023 10:28-0400 Systolic blood pressure 120 mm[Hg] Dr. Tonio Fajardo Work Phone: [facility] 02-05-2023 13:10-0400 Body temperature 97.6 [degF] Dr. Tonio Fajardo Work Phone: [facility] 02-05-2023 13:10-0400 Diastolic blood pressure 76 mm[Hg] Dr. Tonio Fajardo Work Phone: [facility] 02-05-2023 13:10-0400 Heart rate 109 /min Dr. Tonio Fajardo Work Phone: [facility] 02-05-2023 13:10-0400 Respiratory rate 18 /min Dr. Tonio Fajardo Work Phone: [facility] 02-05-2023 13:10-0400 Systolic blood pressure 160 mm[Hg] Dr. Tonio Fajardo Work Phone: [facility] 01-08-2023 13:37-0400 Body temperature 96.7 [degF] Dr. Tonio Fajardo Work Phone: [facility] 01-08-2023 13:37-0400 Diastolic blood pressure 46 mm[Hg] Dr. Tonio Fajardo Work Phone: [facility] 01-08-2023 13:37-0400 Heart rate 111 /min Dr. Tonio Fajardo Work Phone: [facility] 01-08-2023 13:37-0400 Systolic blood pressure 121 mm[Hg] Dr. Tonio Fajardo Work Phone: [facility] 12-31-2022 00:58-0400 Body temperature 98.7 [degF] Dr. Tonio Fajardo Work Phone: [facility] 12-31-2022 00:58-0400 Diastolic blood pressure 59 mm[Hg] Dr. Tonio Fajardo Work Phone: [facility] 12-31-2022 00:58-0400 Heart rate 111 /min Dr. Tonio Fajardo Work Phone: [facility] 12-31-2022 00:58-0400 Respiratory rate 26 /min Dr. Tonio Fajardo Work Phone: [facility] 05-14-2023 00:58-0400 SaO2% (BldA) [Mass fraction] 93 % Dr. Tonio Fajardo Work Phone: [facility] 12-31-2022 00:58-0400 Systolic blood pressure 131 mm[Hg] Dr. Tonio Fajardo Work Phone: [facility] 12-30-2022 22:36-0400 Body height 167.[address] Tonio Fajardo Work Phone: [facility] 12-30-2022 22:36-0400 Body mass index (BMI) [Ratio] 30.5 kg/m2 Dr. Tonio Fajardo Work Phone: [facility] 12-30-2022 22:36-0400 Body weight 85.[address] Tonio Fajardo Work Phone: [facility] 12-25-2022 14:53-0400 Body temperature 97.7 [degF] Dr. Tonio Fajardo Work Phone: [facility] 12-25-2022 14:53-0400 Diastolic blood pressure 51 mm[Hg] Dr. Tonio Fajardo Work Phone: [facility] 12-25-2022 14:53-0400 Heart rate 110 /min Dr. Tonio Fajardo Work Phone: [facility] 12-25-2022 14:53-0400 Respiratory rate 18 /min Dr. Tonio Fajardo Work Phone: [facility] 12-25-2022 14:53-0400 Systolic blood pressure 101 mm[Hg] Dr. Tonio Fajardo Work Phone: [facility] 12-12-2022 10:49-0400 Body height 167.[address] Tonio Fajardo Work Phone: [facility] 12-12-2022 10:49-0400 Body mass index (BMI) [Ratio] 29.7 kg/m2 Dr. Tonio Fajardo Work Phone: [facility] 12-12-2022 10:49-0400 Body temperature 97.4 [degF] Dr. Tonio Fajardo Work Phone: [facility] 12-12-2022 10:49-0400 Body weight 83.[address] Tonio Fajardo Work Phone: [facility] 12-12-2022 10:49-0400 Diastolic blood pressure 71 mm[Hg] Dr. Tonio Fajardo Work Phone: [facility] 12-12-2022 10:49-0400 Heart rate 114 /min Dr. Tonio Fajardo Work Phone: [facility] 12-12-2022 10:49-0400 Respiratory rate 18 /min Dr. Tonio Fajardo Work Phone: [facility] 12-12-2022 10:49-0400 SaO2% (BldA) [Mass fraction] 96 % Dr. Tonio Fajardo Work Phone: [facility] 12-12-2022 10:49-0400 Systolic blood pressure 135 mm[Hg] Dr. Tonio Fajardo Work Phone: [facility] 12-11-2022 13:12-0400 Body temperature 96.2 [degF] Dr. Tonio Fajardo Work Phone: [facility] 12-11-2022 13:12-0400 Diastolic blood pressure 87 mm[Hg] Dr. Tonio Fajardo Work Phone: [facility] 12-11-2022 13:12-0400 Heart rate 107 /min Dr. Tonio Fajardo Work Phone: [facility] 12-11-2022 13:12-0400 Respiratory rate 20 /min Dr. Tonio Fajardo Work Phone: [facility] 12-11-2022 13:12-0400 Systolic blood pressure 110 mm[Hg] Dr. Tonio Fajardo Work Phone: [facility] 11-16-2022 13:13-0400 Diastolic blood pressure 49 mm[Hg] Dr. Tonio Fajardo Work Phone: [facility] 11-16-2022 13:13-0400 Heart rate 82 /min Dr. Tonio Fajardo Work Phone: [facility] 11-16-2022 13:13-0400 Respiratory rate 16 /min Dr. Tonio Fajardo Work Phone: [facility] 11-16-2022 13:13-0400 Systolic blood pressure 125 mm[Hg] Dr. Tonio Fajardo Work Phone: [facility] 11-08-2022 09:52-0400 Body temperature 97.3 [degF] Dr. Tonio Fajardo Work Phone: [facility] 10-16-2022 14:07-0500 Body height 167.[address] Tonio Fajardo Work Phone: [facility] 10-16-2022 14:05-0500 Body mass index (BMI) [Ratio] 29.8 kg/m2 Dr. Tonio Fajardo Work Phone: [facility] 10-16-2022 14:05-0500 Body temperature 97.6 [degF] Dr. Tonio Fajardo Work Phone: [facility] 10-16-2022 14:05-0500 Body weight 83.[address] Tonio Fajardo Work Phone: [facility] 10-16-2022 14:05-0500 Diastolic blood pressure 89 mm[Hg] Dr. Tonio Fajardo Work Phone: [facility] 10-16-2022 14:05-0500 Heart rate 78 /min Dr. Tonio Fajardo Work Phone: [facility] 10-16-2022 14:05-0500 Respiratory rate 18 /min Dr. Tonio Fajardo Work Phone: [facility] 10-16-2022 14:05-0500 SaO2% (BldA) [Mass fraction] 94 % Dr. Tonio Fajardo Work Phone: [facility] 10-16-2022 14:05-0500 Systolic blood pressure 145 mm[Hg] Dr. Tonio Fajardo Work Phone: [facility] 10-16-2022 13:24-0500 Body mass index (BMI) [Ratio] 29.8 kg/m2 Dr. Tonio Fajardo Work Phone: [facility] 10-16-2022 13:24-0500 Body temperature 98.6 [degF] Dr. Tonio Fajardo Work Phone: [facility] 10-16-2022 13:24-0500 Body weight 83.[address] Tonio Fajardo Work Phone: [facility] 10-16-2022 13:24-0500 Diastolic blood pressure 74 mm[Hg] Dr. Tonio Fajardo Work Phone: [facility] 10-16-2022 13:24-0500 Heart rate 75 /min Dr. Tonio Fajardo Work Phone: [facility] 10-16-2022 13:24-0500 Respiratory rate 18 /min Dr. Tonio Fajardo Work Phone: [facility] 10-16-2022 13:24-0500 SaO2% (BldA) [Mass fraction] 94 % Dr. Tonio Fajardo Work Phone: [facility] 10-16-2022 13:24-0500 Systolic blood pressure 146 mm[Hg] Dr. Tonio Fajardo Work Phone: [facility] 10-09-2022 12:59-0500 Body temperature 97.5 [degF] Dr. Tonio Fajardo Work Phone: [facility] 10-09-2022 12:59-0500 Diastolic blood pressure 63 mm[Hg] Dr. Tonio Fajardo Work Phone: [facility] 10-09-2022 12:59-0500 Heart rate 89 /min Dr. Tonio Fajardo Work Phone: [facility] 10-09-2022 12:59-0500 Respiratory rate 22 /min Dr. Tonio Fajardo Work Phone: [facility] 10-09-2022 12:59-0500 Systolic blood pressure 148 mm[Hg] Dr. Tonio Fajardo Work Phone: [facility] 09-18-2022 09:49-0500 Body temperature 97.3 [degF] Dr. Tonio Fajardo Work Phone: [facility] 09-18-2022 09:49-0500 Diastolic blood pressure 44 mm[Hg] Dr. Tonio Fajardo Work Phone: [facility] 09-18-2022 09:49-0500 Heart rate 66 /min Dr. Tonio Fajardo Work Phone: [facility] 09-18-2022 09:49-0500 Respiratory rate 18 /min Dr. Tonio Fajardo Work Phone: [facility] 09-18-2022 09:49-0500 Systolic blood pressure 138 mm[Hg] Dr. Tonio Fajardo Work Phone: [facility] 08-15-2022 13:56-0500 Body temperature 97.1 [degF] Dr. Tonio Fajardo Work Phone: [facility] 08-15-2022 13:56-0500 Diastolic blood pressure 43 mm[Hg] Dr. Tonio Fajardo Work Phone: [facility] 08-15-2022 13:56-0500 Heart rate 73 /min Dr. Tonio Fajardo Work Phone: [facility] 08-15-2022 13:56-0500 Respiratory rate 16 /min Dr. Tonio Fajardo Work Phone: [facility] 08-15-2022 13:56-0500 Systolic blood pressure 139 mm[Hg] Dr. Tonio Fajardo Work Phone: [facility] 08-08-2022 14:00-0500 Body height 167.[address] Tonio Fajardo Work Phone: [facility] 08-08-2022 13:57-0500 Body mass index (BMI) [Ratio] 29.5 kg/m2 Dr. Tonio Fajardo Work Phone: [facility] 08-08-2022 13:57-0500 Body temperature 97.5 [degF] Dr. Tonio Fajardo Work Phone: [facility] 08-08-2022 13:57-0500 Body weight 83.[address] Tonio Fajardo Work Phone: [facility] 08-08-2022 13:57-0500 Diastolic blood pressure 54 mm[Hg] Dr. Tonio Fajardo Work Phone: [facility] 08-08-2022 13:57-0500 Heart rate 67 /min Dr. Tonio Fajardo Work Phone: [facility] 08-08-2022 13:57-0500 Respiratory rate 16 /min Dr. Tonio Fajardo Work Phone: [facility] 08-08-2022 13:57-0500 SaO2% (BldA) [Mass fraction] 94 % Dr. Tonio Fajardo Work Phone: [facility] 08-08-2022 13:57-0500 Systolic blood pressure 109 mm[Hg] Dr. Tonio aFjardo Work Phone: [facility] 07-19-2022 14:30-0500 Body height 167.[address] Tonio Fajardo Work Phone: [facility] Work Phone: 07-19-2022 14:30-0500 Body mass index (BMI) [Ratio] 29 kg/m2 Dr. Tonio Fajardo Work Phone: [facility] 07-19-2022 14:30-0500 Body weight 81.[address] Tonio Fajardo Work Phone: [facility] 07-19-2022 14:30-0500 Diastolic blood pressure 62 mm[Hg] Dr. Tonio Fajardo Work Phone: [facility] 07-19-2022 14:30-0500 Heart rate 66 /min Dr. Tonio Fajardo Work Phone: [facility] 07-19-2022 14:30-0500 Respiratory rate 24 /min Dr. Tonio Fajardo Work Phone: [facility] 07-19-2022 14:30-0500 SaO2% (BldA) [Mass fraction] 97 % Dr. Tonio Fajardo Work Phone: [facility] 07-19-2022 14:30-0500 Systolic blood pressure 117 mm[Hg] Dr. Tonio Fajardo Work Phone: [facility] 07-18-2022 13:29-0500 Body temperature 97.1 [degF] Dr. Tonio Fajardo Work Phone: [facility] 07-18-2022 13:29-0500 Diastolic blood pressure 57 mm[Hg] Dr. Tonio Fajardo Work Phone: [facility] 07-18-2022 13:29-0500 Heart rate 83 /min Dr. Tonio Fajardo Work Phone: [facility] 07-18-2022 13:29-0500 Respiratory rate 16 /min Dr. Tonio Fajardo Work Phone: [facility] 07-18-2022 13:29-0500 Systolic blood pressure 117 mm[Hg] Dr. Tonio Fajardo Work Phone: [facility] 07-17-2022 11:23-0500 Body temperature 98.3 [degF] Dr. Tonio Fajardo Work Phone: [facility] 07-17-2022 11:23-0500 Diastolic blood pressure 58 mm[Hg] Dr. Tonio Fajardo Work Phone: [facility] 07-17-2022 11:23-0500 Heart rate 63 /min Dr. Tonio Fajardo Work Phone: [facility] 07-17-2022 11:23-0500 Respiratory rate 16 /min Dr. Tonio Fajardo Work Phone: [facility] 07-17-2022 11:23-0500 SaO2% (BldA) [Mass fraction] 97 % Dr. Tonio Fajarod Work Phone: [facility] 07-17-2022 11:23-0500 Systolic blood pressure 107 mm[Hg] Dr. Tonio Fajardo Work Phone: [facility] 07-05-2022 14:00-0500 Body mass index (BMI) [Ratio] 29 kg/m2 Dr. Tonio Fajardo Work Phone: [facility] 07-05-2022 14:00-0500 Body temperature 96.9 [degF] Dr. Tonio Fajardo Work Phone: [facility] 07-05-2022 14:00-0500 Body weight 81.[address] Tonio Fajardo Work Phone: [facility] 07-05-2022 14:00-0500 Diastolic blood pressure 63 mm[Hg] Dr. Tonio Fajardo Work Phone: [facility] 07-05-2022 14:00-0500 Heart rate 66 /min Dr. Tonio Fajardo Work Phone: [facility] 07-05-2022 14:00-0500 Respiratory rate 16 /min Dr. Tonio Fajardo Work Phone: [facility] 07-05-2022 14:00-0500 SaO2% (BldA) [Mass fraction] 97 % Dr. Tonio Fajardo Work Phone: [facility] 07-05-2022 14:00-0500 Systolic blood pressure 156 mm[Hg] Dr. Tonio Fajardo Work Phone: [facility] 06-28-2022 14:11-0500 Body mass index (BMI) [Ratio] 29.6 kg/m2 Dr. Tonio Fajardo Work Phone: [facility] 06-28-2022 14:11-0500 Body temperature 97.1 [degF] Dr. Tonio Fajardo Work Phone: [facility] 06-28-2022 14:11-0500 Body weight 83.[address] Tonio Fajardo Work Phone: [facility] 06-28-2022 14:11-0500 Diastolic blood pressure 58 mm[Hg] Dr. Tonio Fajardo Work Phone: [facility] 06-28-2022 14:11-0500 Heart rate 77 /min Dr. Tonio Fajardo Work Phone: [facility] 06-28-2022 14:11-0500 Respiratory rate 16 /min Dr. Tonio Fajardo Work Phone: [facility] 06-28-2022 14:11-0500 SaO2% (BldA) [Mass fraction] 89 % Dr. Tonio Fajardo Work Phone: [facility] 06-28-2022 14:11-0500 Systolic blood pressure 124 mm[Hg] Dr. Tonio Fajardo Work Phone: [facility] 06-21-2022 13:57-0400 Body mass index (BMI) [Ratio] 29.8 kg/m2 Dr. Tonio Fajardo Work Phone: [facility] 06-21-2022 13:57-0400 Body temperature 97 [degF] Dr. Tonio Fajardo Work Phone: [facility] 06-21-2022 13:57-0400 Body weight 83.[address] Tonio Fajardo Work Phone: [facility] 06-21-2022 13:57-0400 Diastolic blood pressure 88 mm[Hg] Dr. Tonio Fajardo Work Phone: [facility] 06-21-2022 13:57-0400 Heart rate 70 /min Dr. Tonio Fajardo Work Phone: [facility] 06-21-2022 13:57-0400 Respiratory rate 18 /min Dr. Tonio Fajardo Work Phone: [facility] 06-21-2022 13:57-0400 SaO2% (BldA) [Mass fraction] 94 % Dr. Tonio Fajardo Work Phone: [facility] 06-21-2022 13:57-0400 Systolic blood pressure 139 mm[Hg] Dr. Tonio Fajardo Work Phone: [facility] 06-14-2022 13:55-0400 Body height 167.[address] Tonio Fajardo Work Phone: [facility] Work Phone: 06-14-2022 13:53-0400 Body mass index (BMI) [Ratio] 29.5 kg/m2 Dr. Tonio Fajardo Work Phone: [facility] 06-14-2022 13:53-0400 Body temperature 97 [degF] Dr. Tonio Fajardo Work Phone: [facility] 06-14-2022 13:53-0400 Body weight 83.[address] Tonio Fajardo Work Phone: [facility] 06-14-2022 13:53-0400 Diastolic blood pressure 61 mm[Hg] Dr. Tonio Fajardo Work Phone: [facility] 06-14-2022 13:53-0400 Heart rate 66 /min Dr. Tonio Fajardo Work Phone: [facility] 06-14-2022 13:53-0400 Respiratory rate 16 /min Dr. Tonio Fajardo Work Phone: [facility] 06-14-2022 13:53-0400 SaO2% (BldA) [Mass fraction] 94 % Dr. Tonio Fajardo Work Phone: [facility] 06-14-2022 13:53-0400 Systolic blood pressure 137 mm[Hg] Dr. Tonio Fajardo Work Phone: [facility] 06-12-2022 10:32-0400 Body temperature 97.3 [degF] Dr. Tonio Fajardo Work Phone: [facility] 06-12-2022 10:32-0400 Diastolic blood pressure 63 mm[Hg] Dr. Tonio Fajardo Work Phone: [facility] 06-12-2022 10:32-0400 Heart rate 59 /min Dr. Tonio Fajardo Work Phone: [facility] 06-12-2022 10:32-0400 Respiratory rate 18 /min Dr. Tonio Fajardo Work Phone: [facility] 06-12-2022 10:32-0400 Systolic blood pressure 149 mm[Hg] Dr. Tonio Fajardo Work Phone: [facility] 05-30-2022 14:08-0400 Body height 167.[address] Tonio Fajardo Work Phone: [facility] Work Phone: 05-30-2022 14:05-0400 Body mass index (BMI) [Ratio] 29.7 kg/m2 Dr. Tonio Fajardo Work Phone: [facility] 05-30-2022 14:05-0400 Body temperature 97 [degF] Dr. Tonio Fajardo Work Phone: [facility] 05-30-2022 14:05-0400 Body weight 83.[address] Tonio Fajardo Work Phone: [facility] 05-30-2022 14:05-0400 Diastolic blood pressure 64 mm[Hg] Dr. Tonio Fajardo Work Phone: [facility] 05-30-2022 14:05-0400 Heart rate 65 /min Dr. Tonio Fajardo Work Phone: [facility] 05-30-2022 14:05-0400 Respiratory rate 18 /min Dr. Tonio Fajardo Work Phone: [facility] 05-30-2022 14:05-0400 SaO2% (BldA) [Mass fraction] 95 % Dr. Tonio Fajardo Work Phone: [facility] 05-30-2022 14:05-0400 Systolic blood pressure 145 mm[Hg] Dr. Tonio Fajardo Work Phone: [facility] 05-29-2022 14:48-0400 Body temperature 97.6 [degF] Dr. Tonio Fajardo Work Phone: [facility] Work Phone: 05-29-2022 14:48-0400 Diastolic blood pressure 51 mm[Hg] Dr. Tonio Fajardo Work Phone: [facility] Work Phone: 05-29-2022 14:48-0400 Heart rate 75 /min Dr. Tonio Fajardo Work Phone: [facility] Work Phone: 05-29-2022 14:48-0400 Systolic blood pressure 158 mm[Hg] Dr. Tonio Fajardo Work Phone: [facility] Work Phone: 05-24-2022 14:31-0400 Body height 167.[address] Tonio Fajardo Work Phone: [facility] Work Phone: 05-24-2022 14:22-0400 Body mass index (BMI) [Ratio] 29.7 kg/m2 Dr. Tonio Fajardo Work Phone: [facility] 05-24-2022 14:22-0400 Body temperature 98.2 [degF] Dr. Tonio Fajardo Work Phone: [facility] 05-24-2022 14:22-0400 Body weight 83.[address] Tonio Fajardo Work Phone: [facility] 05-24-2022 14:22-0400 Diastolic blood pressure 74 mm[Hg] Dr. Tonio Fajardo Work Phone: [facility] 05-24-2022 14:22-0400 Heart rate 74 /min Dr. Tonio Fajardo Work Phone: [facility] 05-24-2022 14:22-0400 Respiratory rate 15 /min Dr. Tonio Fajardo Work Phone: [facility] 05-24-2022 14:22-0400 SaO2% (BldA) [Mass fraction] 96 % Dr. Tonio Fajardo Work Phone: [facility] 05-24-2022 14:22-0400 Systolic blood pressure 135 mm[Hg] Dr. Tonio Fajardo Work Phone: [facility] 05-24-2022 13:26-0400 Body temperature 96.7 [degF] Dr. Tonio Fajardo Work Phone: [facility] Work Phone: 05-24-2022 13:26-0400 Diastolic blood pressure 57 mm[Hg] Dr. Tonio Fajardo Work Phone: [facility] Work Phone: 05-24-2022 13:26-0400 Heart rate 81 /min Dr. Tonio Fajardo Work Phone: [facility] Work Phone: 05-24-2022 13:26-0400 Respiratory rate 18 /min Dr. Tonio Fajardo Work Phone: [facility] Work Phone: 05-24-2022 13:26-0400 Systolic blood pressure 141 mm[Hg] Dr. Tonio Fajardo Work Phone: [facility] Work Phone: 05-17-2022 15:07-0400 Body temperature 97.5 [degF] Dr. Tonio Fajardo Work Phone: [facility] Work Phone: 05-17-2022 15:07-0400 Diastolic blood pressure 63 mm[Hg] Dr. Tonio Fajardo Work Phone: [facility] Work Phone: 05-17-2022 15:07-0400 Heart rate 71 /min Dr. Tonoi Fajardo Work Phone: [facility] Work Phone: 05-17-2022 15:07-0400 Respiratory rate 20 /min Dr. Tonio Fajardo Work Phone: [facility] Work Phone: 05-17-2022 15:07-0400 Systolic blood pressure 142 mm[Hg] Dr. Tonio Fajardo Work Phone: [facility] Work Phone: 05-11-2022 16:01-0400 Body height 167.[address] Tonio Fajardo Work Phone: [facility] Work Phone: 05-11-2022 15:54-0400 Body mass index (BMI) [Ratio] 29.4 kg/m2 Dr. Tonio Fajardo Work Phone: [facility] Work Phone: 05-11-2022 15:54-0400 Body temperature 98.4 [degF] Dr. Tonio Fajardo Work Phone: [facility] Work Phone: 05-11-2022 15:54-0400 Body weight 82.[address] Tonio Fajardo Work Phone: [facility] Work Phone: 05-11-2022 15:54-0400 Diastolic blood pressure 67 mm[Hg] Dr. Tonio Fajardo Work Phone: [facility] Work Phone: 05-11-2022 15:54-0400 Heart rate 63 /min Dr. Tonio Fajardo Work Phone: [facility] Work Phone: 05-11-2022 15:54-0400 Respiratory rate 16 /min Dr. Tonio Fajardo Work Phone: [facility] Work Phone: 05-11-2022 15:54-0400 SaO2% (BldA) [Mass fraction] 96 % Dr. Tonio Fajardo Work Phone: [facility] Work Phone: 05-11-2022 15:54-0400 Systolic blood pressure 100 mm[Hg] Dr. Tonio Fajardo Work Phone: [facility] Work Phone: 05-11-2022 08:32-0400 Body mass index (BMI) [Ratio] 29.4 kg/m2 Dr. Tonio Fajardo Work Phone: [facility] Work Phone: 05-11-2022 08:32-0400 Body temperature 97.2 [degF] Dr. Tonio Fajardo Work Phone: [facility] Work Phone: 05-11-2022 08:32-0400 Body weight 82.[address] Tonio Fajardo Work Phone: [facility] Work Phone: 05-11-2022 08:32-0400 Diastolic blood pressure 62 mm[Hg] Dr. Tonio Fajardo Work Phone: [facility] Work Phone: 05-11-2022 08:32-0400 Heart rate 73 /min Dr. Tonio Fajardo Work Phone: [facility] Work Phone: 05-11-2022 08:32-0400 Respiratory rate 20 /min Dr. Tonio Fajardo Work Phone: [facility] Work Phone: 05-11-2022 08:32-0400 SaO2% (BldA) [Mass fraction] 96 % Dr. Tonio Fajardo Work Phone: [facility] Work Phone: 05-11-2022 08:32-0400 Systolic blood pressure 145 mm[Hg] Dr. Tonio Fajardo Work Phone: [facility] Work Phone: 04-28-2022 11:40-0400 Body temperature 97.4 [degF] Dr. Tonio Fajardo Work Phone: [facility] Work Phone: 04-28-2022 11:40-0400 Diastolic blood pressure 46 mm[Hg] Dr. Tonio Fajardo Work Phone: [facility] Work Phone: 04-28-2022 11:40-0400 Heart rate 66 /min Dr. Tonio Fajardo Work Phone: [facility] Work Phone: 04-28-2022 11:40-0400 Respiratory rate 20 /min Dr. Tonio Fajardo Work Phone: [facility] Work Phone: 04-28-2022 11:40-0400 SaO2% (BldA) [Mass fraction] 96 % Dr. Tonio Fajardo Work Phone: [facility] Work Phone: 04-28-2022 11:40-0400 Systolic blood pressure 138 mm[Hg] Dr. Tonio Fajardo Work Phone: [facility] Work Phone: 04-28-2022 09:44-0400 Inhaled oxygen flow rate 2 L/min Dr. Tonio Fajardo Work Phone: [facility] Work Phone: 04-28-2022 08:15-0400 Body height 167.[address] Tonio Fajardo Work Phone: [facility] Work Phone: 04-28-2022 08:15-0400 Body mass index (BMI) [Ratio] 28 kg/m2 Dr. Tonio Fajardo Work Phone: [facility] Work Phone: 04-28-2022 08:15-0400 Body weight 78.[address] Tonio Fajardo Work Phone: [facility] Work Phone: 04-26-2022 13:47-0400 Body temperature 97 [degF] Dr. Tonio Fajardo Work Phone: [facility] Work Phone: 04-26-2022 13:47-0400 Diastolic blood pressure 33 mm[Hg] Dr. Tonio Fajardo Work Phone: [facility] Work Phone: 04-26-2022 13:47-0400 Heart rate 80 /min Dr. Tonio Fajardo Work Phone: [facility] Work Phone: 04-26-2022 13:47-0400 Respiratory rate 18 /min Dr. Tonio Fajardo Work Phone: [facility] Work Phone: 04-26-2022 13:47-0400 Systolic blood pressure 118 mm[Hg] Dr. Tonio Fajardo Work Phone: [facility] Work Phone: 04-14-2022 11:11-0400 Body height 167.[address] Tonio Fajardo Work Phone: [facility] Work Phone: 04-14-2022 11:11-0400 Body mass index (BMI) [Ratio] 30.7 kg/m2 Dr. Tonio Fajardo Work Phone: [facility] Work Phone: 04-14-2022 11:11-0400 Body temperature 95.8 [degF] Dr. Tonio Fajardo Work Phone: [facility] Work Phone: 04-14-2022 11:11-0400 Body weight 86.[address] Tonio Fajardo Work Phone: [facility] Work Phone: 04-14-2022 11:11-0400 Diastolic blood pressure 68 mm[Hg] Dr. Tonio Fajardo Work Phone: [facility] Work Phone: 04-14-2022 11:11-0400 Heart rate 34 /min Dr. Tonio Fajardo Work Phone: [facility] Work Phone: 04-14-2022 11:11-0400 Respiratory rate 16 /min Dr. Tonio Fajardo Work Phone: [facility] Work Phone: 04-14-2022 11:11-0400 SaO2% (BldA) [Mass fraction] 91 % Dr. Tonio Fajardo Work Phone: [facility] Work Phone: 04-14-2022 11:11-0400 Systolic blood pressure 163 mm[Hg] Dr. Tonio Fajardo Work Phone: [facility] Work Phone: 04-14-2022 10:36-0400 Body temperature 96.7 [degF] Dr. Tonio Fajardo Work Phone: [facility] Work Phone: 04-14-2022 10:36-0400 Diastolic blood pressure 71 mm[Hg] Dr. Tonio Fajardo Work Phone: [facility] Work Phone: 04-14-2022 10:36-0400 Heart rate 64 /min Dr. Tonio Fajardo Work Phone: [facility] Work Phone: 04-14-2022 10:36-0400 Respiratory rate 23 /min Dr. Tonio Fajardo Work Phone: [facility] Work Phone: 04-14-2022 10:36-0400 SaO2% (BldA) [Mass fraction] 94 % Dr. Tonio Fajardo Work Phone: [facility] Work Phone: 04-14-2022 10:36-0400 Systolic blood pressure 153 mm[Hg] Dr. Tonio Fajardo Work Phone: [facility] Work Phone: 04-14-2022 08:24-0400 Body mass index (BMI) [Ratio] 30.2 kg/m2 Dr. Tonio Fajardo Work Phone: [facility] Work Phone: 04-14-2022 08:24-0400 Body weight 85.[address] Tonio Fajardo Work Phone: [facility] Work Phone: 04-12-2022 13:50-0400 Body temperature 97.8 [degF] Dr. Tonio Fajardo Work Phone: [facility] Work Phone: 04-12-2022 13:50-0400 Diastolic blood pressure 74 mm[Hg] Dr. Tonio Fajardo Work Phone: [facility] Work Phone: 04-12-2022 13:50-0400 Heart rate 69 /min Dr. Tonio Fajardo Work Phone: [facility] Work Phone: 04-12-2022 13:50-0400 Respiratory rate 18 /min Dr. Tonio Fajardo Work Phone: [facility] Work Phone: 04-12-2022 13:50-0400 Systolic blood pressure 107 mm[Hg] Dr. Tonio Fajardo Work Phone: [facility] Work Phone: 04-05-2022 13:34-0400 Body temperature 101.61 [degF] Steven Praisler-Wood [employer]ER.[employer] Work Phone: [facility] 04-05-2022 13:34-0400 Body weight 87.09 kg Steven Praisler-Wood TEST CARRIER.[employer]QUIP[employer] OPERATOR Work Phone: [facility] 04-05-2022 13:34-0400 Diastolic blood pressure 76 mm[Hg] Steven Praisler-Wood TEST CARRIER.[employer] EQUIPMENT OPERATOR Work Phone: [facility] 04-05-2022 13:34-0400 Heart rate 76 /min Steven Praisler-Wood TEST CARRIER.[employer] EQUIPMENT OPERATOR Work Phone: [facility] 04-05-2022 13:34-0400 Respiratory rate 16 /min Steven Praisler-Wood TEST CARRIER.[employer] EQUIPMENT OPERATOR Work Phone: [facility] 04-05-2022 13:34-0400 SaO2% (BldA) [Mass fraction] 94 % Steven Praisler-Wood TEST CARRIER.[employer] EQUIPMENT OPERATOR Work Phone: [facility] 04-05-2022 13:34-0400 Systolic blood pressure 122 mm[Hg] Steven Rodriguez APRN.[facility] Work Phone: [facility] 03-01-2022 13:16-0400 Body temperature 97.6 [degF] Dr. Tonio Fajardo Work Phone: [facility] Work Phone: 03-01-2022 13:16-0400 Diastolic blood pressure 73 mm[Hg] Dr. Tonio Fajardo Work Phone: [facility] Work Phone: 03-01-2022 13:16-0400 Heart rate 70 /min Dr. Tonio Fajardo Work Phone: [facility] Work Phone: 03-01-2022 13:16-0400 Respiratory rate 18 /min Dr. Tonio Fajardo Work Phone: [facility] Work Phone: 03-01-2022 13:16-0400 Systolic blood pressure 141 mm[Hg] Dr. Tonio Fajardo Work Phone: [facility] Work Phone: 02-08-2022 13:06-0400 Body temperature 98.1 [degF] Dr. Tonio Fajardo Work Phone: [facility] Work Phone: 02-08-2022 13:06-0400 Diastolic blood pressure 63 mm[Hg] Dr. Tonio Fajardo Work Phone: [facility] Work Phone: 02-08-2022 13:06-0400 Heart rate 83 /min Dr. Tonio Fajardo Work Phone: [facility] Work Phone: 02-08-2022 13:06-0400 Respiratory rate 20 /min Dr. Tonio Fjaardo Work Phone: [facility] Work Phone: 02-08-2022 13:06-0400 Systolic blood pressure 131 mm[Hg] Dr. Tonio Fajardo Work Phone: [facility] Work Phone: 01-17-2022 10:56-0400 Body height 167.[address] Tonio Fajardo Work Phone: [facility] Work Phone: 01-17-2022 10:56-0400 Body mass index (BMI) [Ratio] 31.9 kg/m2 Dr. Tonio Fajardo Work Phone: [facility] Work Phone: 01-17-2022 10:56-0400 Body weight 89.[address] Tonio Fajardo Work Phone: [facility] Work Phone: 01-17-2022 10:56-0400 Diastolic blood pressure 44 mm[Hg] Dr. Tonio Fajardo Work Phone: [facility] Work Phone: 01-17-2022 10:56-0400 Heart rate 64 /min Dr. Tonio Fajardo Work Phone: [facility] Work Phone: 01-17-2022 10:56-0400 Respiratory rate 22 /min Dr. Tonio Fajardo Work Phone: [facility] Work Phone: 01-17-2022 10:56-0400 SaO2% (BldA) [Mass fraction] 95 % Dr. Tonio Fajardo Work Phone: [facility] Work Phone: 01-17-2022 10:56-0400 Systolic blood pressure 101 mm[Hg] Dr. Tonio Fajardo Work Phone: [facility] Work Phone: 01-17-2022 10:56-0400 Body height 167.[address] Tonio Fajardo Work Phone: [facility] Work Phone: 01-17-2022 10:56-0400 Body mass index (BMI) [Ratio] 31.9 kg/m2 Dr. Tonio Fajardo Work Phone: [facility] Work Phone: 01-17-2022 10:56-0400 Body weight 89.[address] Tonio Fajardo Work Phone: [facility] Work Phone: 01-17-2022 10:56-0400 Diastolic blood pressure 44 mm[Hg] Dr. Tonio Fajardo Work Phone: [facility] Work Phone: 01-17-2022 10:56-0400 Heart rate 64 /min Dr. Tonio Fajardo Work Phone: [facility] Work Phone: 01-17-2022 10:56-0400 Respiratory rate 22 /min Dr. Tonio Fajardo Work Phone: [facility] Work Phone: 01-17-2022 10:56-0400 SaO2% (BldA) [Mass fraction] 95 % Dr. Tonio Fajardo Work Phone: [facility] Work Phone: 01-17-2022 10:56-0400 Systolic blood pressure 101 mm[Hg] Dr. Tonio Fajardo Work Phone: [facility] Work Phone: 01-04-2022 12:59-0400 Body temperature 96.4 [degF] Dr. Tonio Fajardo Work Phone: [facility] Work Phone: 01-04-2022 12:59-0400 Diastolic blood pressure 64 mm[Hg] Dr. Tonio Fajardo Work Phone: [facility] Work Phone: 01-04-2022 12:59-0400 Heart rate 70 /min Dr. Tonio Fajardo Work Phone: [facility] Work Phone: 01-04-2022 12:59-0400 Respiratory rate 16 /min Dr. Tonio Fajardo Work Phone: [facility] Work Phone: 01-04-2022 12:59-0400 Systolic blood pressure 135 mm[Hg] Dr. Tonio Fajardo Work Phone: [facility] Work Phone: 12-21-2021 13:10-0400 Body temperature 97 [degF] [facility] Work Phone: 12-21-2021 13:10-0400 Diastolic blood pressure 62 mm[Hg] [facility] Work Phone: 12-21-2021 13:10-0400 Heart rate 88 /min [facility] Work Phone: 12-21-2021 13:10-0400 Systolic blood pressure 173 mm[Hg] [facility] Work Phone: 12-18-2021 00:38-0400 Respiratory rate 16 /min [facility] Work Phone: 11-29-2021 13:03-0400 Body temperature 97.4 [degF] [facility] Work Phone: 11-29-2021 13:03-0400 Diastolic blood pressure 43 mm[Hg] [facility] Work Phone: 11-29-2021 13:03-0400 Heart rate 69 /min [facility] Work Phone: 11-29-2021 13:03-0400 Respiratory rate 16 /min [facility] Work Phone: 11-29-2021 13:03-0400 Systolic blood pressure 134 mm[Hg] [facility] Work Phone: 11-09-2021 13:07-0400 Body temperature 97 [degF] [facility] Work Phone: 11-09-2021 13:07-0400 Diastolic blood pressure 41 mm[Hg] [facility] Work Phone: 11-09-2021 13:07-0400 Heart rate 73 /min [facility] Work Phone: 11-09-2021 13:07-0400 Respiratory rate 18 /min [facility] Work Phone: 11-09-2021 13:07-0400 Systolic blood pressure 126 mm[Hg] [facility] Work Phone: Encounters Encounter Date Encounter Type Care Provider Facility Start: 04-19-2025 ambulatory Kwaku Narayanan [facility] ility:[facility] Start: 04-19-[address] Tonio Fajardo DO Work Phone: -Progressive Care Unit Start: 04-19-2025 Dr. Kwaku Narayanan DO -Progressive Care Unit Work Phone: Start: 04-19-2025 Dr. Tonio robertson DO Work Phone: -Emergency Department Work Phone: Start: 04-17-2025 End: 04-19-2025 Evaluation and management of inpatient Dr. Tonio Fajardo DO Work Phone: -Transitional Care Unit Start: 04-17-2025 End: 04-19-2025 Dr. Valdez Olivo MD -Transitional Care U nit Start: 04-16-2025 ambulatory Tonio Fajardo Facility: [facility] Start: 04-13-2025 End: 04-17-2025 Evaluation and management of inpatient DR DAVID STERLING MD [facility] Start: 04-12-2025 End: 04-13-2025 Dr. Tonio Fajardo [...] Care Unit Start: 04-10-2025 End: 04-10-2025 Carol Merry -[facility] Work Phone: Start: 04-10-2025 Dr. Nicola Roman MD -[facility] Work Phone: Start: 04-10-2025 End: 04-10-[address] Tonio Fajardo DO Work Phone: -[facility] Start: 04-10-2025 End: 04-10-2025 Dr. Issa Looney MD [facility] Work Phone: Start: 04-09-2025 Dr. Santos Hsu MD -[facility] Start: 04-09-2025 Dr. Nicola Roman MD [facility] Work Phone: Start: 04-08-2025 Dr. Issa Looney MD [facility] Start: 04-08-2025 Dr. Nicola Roman MD [facility] Work Phone: Start: 04-07-2025 Dr. Nicola Roman MD [facility] Work Phone: Start: 04-06-2025 Dr. Deric Lantigua MD [facility] Work Phone: Start: 04-05-2025 ambulatory [...] 04-02-2025 End: 04-02-2025 ambulatory Carmelina E Aida Facility:[facility] Start: 03-27-2025 End: 03-27-[address] Tonio Fajardo DO Work Phone: -Pulmonary Services/Neurology Start: 03-27-2025 End: 03-27-2025 Patient encounter procedure Leslie DAMIAN -Pulmonary Services/Neurology Work Phone: Start: 03-27-2025 End: 03-27-2025 Leslie DAMIAN -Pulmonary Services/Neurology Work Phone: Start: 03-27-2025 End: 03-27-2025 ambulatory Leslie DAMIAN Facility:[facility] Start: 03-18-2025 End: 03-18-[address] Tonio Fajardo DO Work Phone: -[facility]atory [facility] Start: 03-18-2025 End: 03-18-[address] Tonio Fajardo DO -[facility]atory [facility] Start: 03-18-2025 End: 03-18-2025 Dr. Tonio Fajardo DO -Laboratory [facility] Start: 03-17-2025 End: 03-17-2025 Patient encounter procedure Leslie DAMIAN -[facility] Work Phone: Start: 03-17-2025 End: 03-17-2025 Leslie DAMIAN -[facility] Work Phone: Start: 03-17-2025 End: 03-18-[address] Tonio Fajardo DO Work Phone: -[facility] Start: 03-15-2025 End: 03-15-2025 Dr. Alex Matias MD -Emergency [facility] t Work Phone: Start: 03-15-2025 End: 03-15-2025 Emergency department patient visit Dr. Tonio Fajardo DO Work Phone: -Emergency Department Work Phone: Start: 03-09-2025 Non-patient / Non-visit Dr. Deric Lantigua MD [facility] Work Phone: Start: 03-09-2025 [facility] Start: 03-09-2025 Non-patient / Non-visit Dr. Willian Glaser MD [facility] Start: 03-09-2025 Dr. Willian Glaser MD [facility] Start: 03-08-2025 Non-patient / [facility] Start: 03-08-2025 Dr. Marjorie Green MD [facility] Start: 03-07-2025 Non-patient / Non-visit Dr. Deric Lantigua MD [facility] Work Phone: Start: 03-07-2025 Dr. Deric Lantigua MD [facility] Work Phone: Start: 03-06-2025 Non-patient / Non-visit Dr. Deric Lantigua MD [facility] Work Phone: Start: 03-06-2025 Dr. Deric Lantigua MD [facility] Work Phone: Start: 03-06-2025 Non-patient / [facility] Start: 03-06-2025 Dr. Marjorie Green MD [facility] Start: 03-05-2025 ambulatory Marjorie Green Facility:[facility] Start: 03-05-2025 Non-patient / Non-visit Dr. Marjorie castellano MD -[facility] Start: 03-05-2025 Dr. Marjorie Green MD -[facility] Start: 03-05-2025 Non-patient / Non-visit Dr. Deric Lantigua MD -[facility] Work Phone: Start: 03-05-2025 Dr. Deric Lantigua MD -[facility] Work Phone: Start: 03-04-2025 ambulatory Nicola Lindsey Facilmingo ty:[facility] Start: 03-04-2025 End: 03-09-2025 Evaluation and management of inpatient Dr. Nicola Lindsey DO -Progressive Care Unit Work Phone: Start: 03-04-2025 End: 03-09-2025 Dr. Deric Lantigua MD -Progressive Care U nit Work Phone: Start: 11-06-[address] Russ Zamora MD -[facility] Start: 11-06-2024 End: 11-06-[address] Russ Zamora MD -[facility] Work Phone: Start: 11-06-2024 End: 11-06-[facility] Start: 10-30-2024 End: 10-30-[address] Tonio Fajardo DO Work Phone: [facility] Work Phone: Start: 10-30-2024 End: 10-30-[address] Russ Zamora MD -Cat Scan, [facility] Work Phone: Start: 10-30-2024 End: 10-30-2024 ambulatory Russ Zamora Facility:[facility] Start: 10-23-2024 End: 10-23-2024 Patient encounter procedure Lorie ZHONG -[facility] Work Phone: Start: 10-23-2024 End: 10-23-2024 ambulatory Tonio Fajardo Facility:[facility] Start: 10-20-2024 End: 10-20-[address] Tonio Fajardo DO Work Phone: [facility] Work Phone: Start: 10-20-2024 End: 10-20-[address] Tonio Fajardo DO -Laboratory, [facility] Start: 10-20-2024 End: 10-20-2024 ambulatory Tonio Fajardo Facility:[facility] Start: 10-17-2024 ambulatory Lorie Mart BARGE ENGINEER Fac ility:[facility] Start: 10-17-2024 Non-patient / Non-visit Dr. Tyrell zuniga DO -[facility] Start: 10-16-2024 End: 10-16-[address] Tonio Fajardo DO Work Phone: [facility] Work Phone: Start: 10-16-2024 End: 10-16-2024 Patient encounter procedure Lorie Mart BARGE ENGINEER-C -Pulmonary Services/Neurology Work Phone: Start: 10-16-2024 End: 10-16-2024 ambulatory Lorie Mart NP Facility:[facility] Start: 09-25-2024 End: 09-25-2024 Patient encounter procedure Leslie Arriaga PA -[facility] Work Phone: Start: 09-25-2024 End: 09-25-2024 ambulatory Leslie DAMIAN Facility:[facility] Start: 09-25-2024 End: 09-25-2024 ambulatory Leslie DAMIAN Facility:[facility] Start: 07-03-2024 End: 07-03-[address] Joaquim Suárez DPM -Laboratory, Specimen Work Phone: Start: 07-03-2024 End: 07-03-2024 ambulatory Joaquim Suárez Facility:[facility] Start: 06-17-2024 End: 06-17-2024 ambulatory Joaquim Suárez Facility:[facility] Start: 05-05-2024 End: 05-05-2024 ambulatory [facility] Facility:[facility] Start: 04-28-2024 End: 04-28-2024 ambulatory [facility] Facility:[facility] Start: 12-24-2023 End: 12-24-[address] Tonio Fajardo Work Phone: [facility] Work Phone: Start: 12-24-2023 End: 12-24-[address] Tonio Fajardo Work Phone: [facility]-Laboratory, Specimen Work Phone: Start: 11-12-2023 End: 11-12-[address] Tonio Fajardo Work Phone: [facility] Work Phone: Start: 11-06-[address] Tonio Fajardo Work Phone: [facility] On[facility] Start: 10-31-2023 End: 10-31-[address] Tonio Fajardo Work Phone: [facility] Work Phone: Start: 10-18-2023 End: 10-18-[address] Tonio Fajardo Work Phone: [facility] Work Phone: Start: 10-12-2023 End: 10-12-[address] Tonio Fajardo Work Phone: [facility] Work Phone: Start: 10-12-2023 End: 10-12-[address] Tonio Fajardo Work Phone: [facility]-Cat Scan, [facility] Work Phone: Start: 08-29-2023 End: 08-29-[address] Tonio Fajardo Work Phone: [facility] Work Phone: Start: 08-22-2023 Non-patient / Non-visit Dr. Min Fajardo Work Phone: [facility] Start: 08-22-2023 End: 08-22-[address] Tonio Fajardo Work Phone: [facility]-Cardiovascular Services Work Phone: Start: 07-26-2023 End: 07-26-[address] Tonio Fajardo Work Phone: [facility] Work Phone: Start: 07-26-2023 End: 07-26-[address] Tonio Fajardo Work Phone: [facility] Work Phone: Start: 07-25-2023 End: 07-25-[address] Tonio Fajardo Work Phone: [facility]-Pulmonary Medicine [facility] Work Phone: Start: 06-22-2023 End: 06-22-[address] Tonio Fajardo Work Phone: [facility] Work Phone: Start: 06-22-2023 End: 06-22-[address] Tonio Fajardo Work Phone: [facility]-Laboratory, Specimen Work Phone: Start: 06-08-2023 End: 06-08-2023 Admission to same day surgery center Dr. Tonio Fajardo Work Phone: [facility]-Surgical Day Care Start: 06-08-2023 End: 06-08-[address] Tonio Fajardo Work Phone: [facility] Work Phone: Start: 05-02-2023 End: 05-19-[address] [facility] Work Phone: Start: 04-20-2023 Non-patient / Non-visit Dr. Min Fajardo Work Phone: [facility] Start: 04-18-2023 End: 04-19-[address] Tonio Fajardo Work Phone: [facility] Work Phone: Start: 04-18-2023 End: 04-19-[address] Tonio Fajardo Work Phone: [facility] Work Phone: Start: 04-17-[address] Tonio Fajardo Work Phone: [facility] On[facility] Start: 04-17-2023 End: 04-17-[address] Tonio Fajardo Work Phone: [facility] Work Phone: Start: 04-10-2023 End: 04-10-[address] Tonio Fajardo Work Phone: [facility] Work Phone: Start: 04-10-2023 End: 04-10-[address] Tonio Fajardo Work Phone: [facility] Work Phone: Start: 04-02-2023 Non-patient / Non-visit Dr. Min Fajardo Work Phone: [facility] Start: 04-02-[address] Tonio Fajardo [facility] Work Phone: Start: 03-19-2023 Non-patient / Non-visit Dr. Min Fajardo Work Phone: [facility] Start: 03-19-2023 End: 03-19-[address] Tonio Fajardo Work Phone: [facility] Work Phone: Start: 03-19-2023 End: 03-19-[address] Tonio Fajardo [facility] Work Phone: Start: 03-05-2023 Non-patient / Non-visit Dr. Min Fajardo Work Phone: [facility] Start: 02-23-2023 End: 02-23-[address] Tonio Fajardo Work Phone: [facility] Work Phone: Start: 02-19-2023 Non-patient / Non-visit Dr. Min Fajardo Work Phone: [facility] Start: 02-05-2023 Non-patient / Non-visit Dr. Min Fajardo Work Phone: [facility] Start: 02-05-2023 End: 02-16-[address] Tonio Fajardo Work Phone: [facility] Work Phone: Start: 02-05-2023 End: 02-16-[address] Tonio Fajardo [facility] Work Phone: Start: 01-22-2023 Non-patient / Non-visit Dr. Min Fajardo Work Phone: [facility] Start: 01-08-2023 Non-patient / Non-visit Dr. Min Fajardo Work Phone: [facility] Start: 01-08-2023 End: 01-17-[address] Tonio Fajardo Work Phone: [facility] Work Phone: Start: 01-08-2023 End: 01-17-[address] Ton[facility] Fajardo [facility] Start: 12-30-2022 End: 12-31-2022 Emergency department patient visit Dr. Tonio Fajardo Work Phone: [facility]-Emergency Department Start: 12-25-2022 Non-patient / Non-visit Dr. Min Fajardo Work Phone: [facility] Start: 12-25-[address] Tonio Fajrado Work Phone: [facility] Start: 12-18-2022 Non-patient / Non-visit Dr. Min Fajardo Work Phone: [facility] Start: 12-12-2022 End: 12-12-[address] Tonio Fajardo [facility] Start: 12-11-2022 Non-patient / Non-visit Dr. Min Fajardo Work Phone: [facility] Start: 12-11-2022 End: 12-17-[address] Tonio Fajardo Work Phone: [facility] Work Phone: Start: 12-11-2022 End: 12-17-[address] Tonio Fajardo Work Phone: [facility] Start: 12-06-2022 Non-patient / Non-visit Dr. Min Fajardo Work Phone: [facility] Start: 11-27-2022 Non-patient / Non-visit Dr. Min Fajardo Work Phone: [facility] Start: 11-20-2022 Non-patient / Non-visit Dr. Mni Fajardo Work Phone: [facility] Start: 11-08-2022 Non-patient / Non-visit Dr. Min Fajardo Work Phone: [facility] Start: 11-08-2022 End: 11-17-[address] Tonio Fajardo [facility] Start: 10-30-2022 Non-patient / Non-visit Dr. Min Fajardo Work Phone: [facility] Start: 10-23-2022 Non-patient / Non-visit Dr. Min Fajardo Work Phone: [facility] Start: 10-18-2022 Non-patient / Non-visit Dr. Min Fajardo Work Phone: [facility] Start: 10-16-[address] Tonio Fajardo Work Phone: [facility] On[facility] Start: 10-16-2022 End: 10-16-[address] Tonio Fajardo Work Phone: [facility] Start: 10-09-2022 Non-patient / Non-visit Dr. Min Fajardo Work Phone: [facility] Start: 10-09-2022 End: 10-09-[address] Tonio Fajardo Work Phone: [facility] Start: 10-09-2022 End: 10-17-[address] Tonio Fajardo Work Phone: [facility] Work Phone: Start: 10-09-2022 End: 10-17-[address] Tonio Fajardo [facility] Start: 10-09-[address] Tonio Fajardo Work Phone: [facility] Start: 10-02-2022 Non-patient / Non-visit Dr. Min Fajardo Work Phone: [facility] Start: 10-02-2022 End: 10-02-[address] Tonio Fajardo Work Phone: [facility] Start: 09-25-2022 Non-patient / Non-visit Dr. Min Fajardo Work Phone: [facility] Start: 09-18-2022 Non-patient / Non-visit Dr. Min Fajardo Work Phone: [facility] Start: 09-18-2022 End: 09-19-[address] Tonio Fajardo Work Phone: [facility] Work Phone: Start: 09-18-2022 End: 09-19-[address] Tonio Fajardo Work Phone: [facility] Start: 08-29-2022 Non-patient / Non-visit Dr. Min Fajardo Work Phone: [facility] Start: 08-15-2022 Non-patient / Non-visit Dr. Min Fajardo Work Phone: [facility] Start: 08-15-2022 End: 08-19-[address] Tonio Fajardo Work Phone: [facility] Work Phone: Start: 08-15-2022 End: 08-19-[address] Tonio Fajardo Work Phone: [facility] Start: 08-08-2022 End: 08-08-[address] Tonio Fajardo Work Phone: [facility] Start: 08-01-2022 Non-patient / Non-visit Dr. Min Fajadro Work Phone: [facility] Start: 07-28-2022 Telephone encounter Steven Parra APRN.CNP Work Phone: [facility] Comment on above: Patient Update Start: 07-19-2022 End: 07-19-[address] Tonio Fajardo Work Phone: [facility] Start: 07-18-2022 Non-patient / Non-visit Dr. Min Fajardo Work Phone: [facility] Start: 07-18-2022 End: 07-19-[address] Tonio Fajardo Work Phone: [facility] Work Phone: Start: 07-18-2022 End: 07-19-[address] Tonio Fajardo Work Phone: [facility] Start: 07-17-2022 End: 07-17-[address] Tonio Fajardo Work Phone: [facility] Start: 07-09-[address] Tonio Fajardo Work Phone: [facility]-Radiation Oncology Start: 07-09-2022 Non-patient / Non-visit Dr. Min Fajardo Work Phone: [facility] Start: 07-05-2022 End: 07-05-[address] Tonio Fajardo Work Phone: [facility] Start: 06-28-2022 End: 06-28-[address] Tonio Fajardo Work Phone: [facility] Cancer [facility] Start: 06-26-2022 Non-patient / Non-visit Dr. Min Fajardo Work Phone: [facility] Start: 06-21-2022 End: 06-21-[address] Tonio Fajardo Work Phone: [facility] Cancer [facility] Start: 06-19-[address] Tonio Fajardo Work Phone: [facility]-Radiation Oncology Start: 06-14-2022 End: 06-14-[address] Tonio Fajardo Work Phone: [facility] Cancer [facility] Start: 06-12-2022 Non-patient / Non-visit Dr. Min Fajardo Work Phone: [facility] Start: 06-12-2022 End: 06-19-[address] Tonio Fajardo Work Phone: [facility] Work Phone: Start: 06-12-2022 End: 06-19-[address] oTnio Fajardo [facility] Start: 06-06-2022 Non-patient / Non-visit Dr. Min Fajardo Work Phone: [facility] Start: 06-02-2022 Non-patient / Non-visit Dr. Min Fajardo Work Phone: [facility] Start: 06-02-2022 End: 06-02-[address] Tonio Fajardo Work Phone: [facility] Work Phone: Start: 06-02-2022 End: 06-02-[address] Tonio Fajardo Work Phone: [facility]-Pulmonary Services/Neurology Start: 06-01-2022 Non-patient / Non-visit Dr. Min Fajardo Work Phone: [facility] Start: 06-01-[address] Tonio [facility]ardo [facility] Start: 05-30-[address] Tonio Fajardo Work Phone: [facility] Start: 05-30-2022 End: 05-30-[address] Tonio Fajardo Work Phone: [facility] Start: 05-29-2022 Non-patient / Non-visit Dr. Min Fajardo Work Phone: [facility] Start: 05-29-[address] Tonio Fajardo Work Phone: [facility] Start: 05-24-2022 End: 05-24-[address] Tonio Fajardo Work Phone: [facility] Start: 05-24-2022 Non-patient / Non-visit Dr. Min Fajardo Work Phone: [facility] Start: 05-24-[address] Tonio Fajardo Work Phone: [facility] Start: 05-22-2022 End: 05-22-[address] Tonio Fajardo Work Phone: [facility] Work Phone: Start: 05-22-2022 End: 05-22-[address] Tonio Fajardo Work Phone: [facility] Start: 05-17-2022 Non-patient / Non-visit Dr. Min Fajardo Work Phone: [facility] Start: 05-17-2022 End: 05-19-[address] Tonio Fajardo Work Phone: [facility] Work Phone: Start: 05-17-2022 End: 05-19-[address] Tonio Fajardo [facility] Start: 05-17-[address] Tonio Fajardo Work Phone: [facility] On[facility] Start: 05-11-2022 End: 05-11-[address] Tonio Fajardo Work Phone: [facility] Start: 05-11-2022 End: 05-11-[address] Tonio Fajardo [facility] Start: 04-28-2022 Non-patient / Non-visit Dr. Min Fajardo Work Phone: [facility] Start: 04-28-2022 End: 04-28-[address] Tonio Fajardo Work Phone: [facility] Work Phone: Start: 04-28-2022 End: 04-28-[address] Tonio Fajardo Work Phone: [facility] Start: 04-26-[address] Tonio Fajardo [facility] Start: 04-14-2022 End: 04-14-[address] Tonio Fajardo Work Phone: [facility] Work Phone: Start: 04-14-2022 End: 04-14-[address] Tonio Fajardo Work Phone: [facility]-Laboratory, OP Pavilion Start: 04-14-2022 End: 04-14-2022 Emergency department patient visit Dr. Tonio Fajardo Work Phone: [facility]-Emergency Department Start: 04-12-2022 End: 04-12-[address] Tonio Fajardo Work Phone: [facility] Work Phone: Start: 04-12-2022 End: 04-12-[address] Tonio Fajardo Work Phone: [facility] Start: 04-12-2022 End: 04-19-[address] Tonio Fajardo Work Phone: [facility] Work Phone: Start: 04-12-2022 End: 04-19-[address] Tonio Fajardo [facility] Start: 04-12-[address] Tonio Fajardo [facility] [place] Start: 04-06-2022 Telephone encounter Carlos Rivera MD Work Phone: [facility] Comment on above: Results (COVID+) Start: 04-05-2022 End: 04-05-2022 ambulatory TONIO FAJARDO Facility:[facility] Start: 04-05-2022 Telephone encounter Steven Parra APRN.CNP Work Phone: [facility] Comment on above: Results Start: 04-05-2022 End: 04-05-2022 Subsequent hospital visit by physician Xr [facility] Work Phone: Radiology Comment on above: Acute cough [R05.1] Start: 04-05-2022 End: 04-05-2022 Patient encounter procedure Steven Rodriguez APRN.CNP Work Phone: [facility] Comment on above: Burning with urinati on (Primary Dx); Acute cough; Suspected COVID-19 virus infection Start: 03-01-2022 End: 03-19-[address] Tonio Fajardo Work Phone: [facility] Start: 02-08-2022 End: 02-16-[address] Tonio Fajardo Work Phone: [facility] Start: 01-17-2022 End: 01-17-[address] Tonio Fajardo Work Phone: [facility] Start: 01-04-2022 End: 01-17-[address] Tonio Fajardo Work Phone: [facility] Start: 12-21-2021 Registered Recurring [facility] Start: 12-19-2021 End: 12-19-2021 [facility] Start: 11-29-2021 End: 12-17-2021 Nutrition therapy [facility] Start: 11-09-2021 End: 11-17-2021 Nutrition therapy [facility] Procedures Date Procedure Procedure Detail Performing Clinician Start: 04-19-2025 Plain chest X-ray Dr. Silvana Fajardo DO Work Phone: Start: 04-19-2025 Blood count smear rscp w/mnl difrntl wbc [...] rscp w/mnl difrntl wbc count Dr. Tonio Faajrdo DO Work Phone: Start: 04-12-2025 Estimated creatinine [...] Phone: Start: 04-10-2025 Gram stain microscopy D may Fajardo DO Work Phone: Start: 04-10-2025 Microbial [...] Start: 04-09-2025 Plain chest X-ray Dr. Silvana Faajrdo DO Work Phone: Start: 04-09-2025 Serum inorganic [...] blood cell count procedure Dr. Tonio Fajardo [employer] Work Phone: Start: 03-18-2025 Platelet mean volume determination Dr. Tonio Fajardo [employer] Work Phone: Start: 03-09-2025 Blood count smear mc rscp w/mnl difrntl wbc count Dr. Tonio Fajardo [employer] Work Phone: Start: 03-09-[address] Tonio Fajardo [employer] Work Phone: Start: 03-09-2025 Mean corpuscular hem oglobin concentration determination Dr. Tonio Fajardo [employer] Work Phone: Start: 03-09-2025 Nucleated red blood cell count procedure Dr. Tonio Fajardo [employer] Work Phone: Start: 03-09-2025 Platelet mean volume determination Dr. Tonio Fajardo [employer] Work Phone: Start: 03-06-[address] Tonio Fajardo [employer] Work Phone: Start: 03-06-2025 Serum inorganic phos phate measurement Dr. Tonio Fajardo DO Work Phone: Start: 03-05-[address] Tonio Fajardo [employer] Work Phone: Start: 03-05-2025 Total cholesterol:HD L ratio measurement Dr. Tonio Fajardo [employer] Work Phone: Start: 03-05-2025 Plain chest X-ray Dr. Silvana Fajardo [employer] Work Phone: Start: 03-04-2025 Urine microscopy: red cells Dr. Tonio Fajardo [employer] Work Phone: Start: 03-04-2025 Urnls dip stick/tabl [...] Phone: Comment on above: Sent directly to [facility] per ordering physician. Start: 12-24-2023 Investigation [...] culture Dr. Tonio Fajardo Work Phone: Start: 05-22-2023 Investigation of tra nsfusion reaction Dr. Tonio [...] Start: 04-28-2022 Plain chest X-ray Dr. Silvana Fajadro Work Phone: Start: 04-28-2022 Biopsy/Inj or Needle Placement Dr. Tonio Fajardo Work Phone: Start: 04-28-2022 Plain chest X-ray Dr. Silvana Fajardo Work Phone: Start: 04-12-2022 CT of thorax with contrast Dr. Tonio Fajardo Work Phone: Start: 04-05-2022 Radiologic exam chest 2 views Steven Rodriguez TEST CARRIER.[employer] EQUIPMENT OPERATOR Work Phone: Start: 04-05-2022 Urnls dip stick/tabl et rgnt auto w/o microscopy Onelia Cuevas [employer]ANING EQUIPMENT OPERATOR Work Phone: Start: 11-02-2021 X-ray of [...] Date Care Activity Detail Author Start: 04-19-2025 [facility] Start: 04-19-2025 End: 04-19-2025 Serum inorganic phosphate measurement [facility] Start: 04-19-2025 Verification routine [facility] Start: 04-19-2025 Hospital admission, emergency, from emergency room, medical nature [facility] Start: 04-19-2025 Admission procedure [facility] Start: 04-19-2025 End: 04-19-2025 [facility] Start: 04-19-2025 Patient discharge [facility] Start: 04-18-2025 [facility] Start: 04-18-2025 Development of care plan [facility] Start: 04-18-2025 Developing a treatme nt plan [facility] Start: 04-18-2025 Consultation for treatment [facility] Start: 04-18-2025 Wound care [facility] Start: 04-17-2025 Admission procedure [facility] Start: 04-17-2025 Introduction of urin dakota catheter [facility] Start: 04-17-2025 Measuring intake and output [facility] Start: 04-17-2025 Patient referral to dietitian [facility] Start: 04-17-2025 Referral to occupati onal therapist [facility] Start: 04-17-2025 Referral to service [facility] Start: 04-17-2025 Vital signs measurements [facility] Start: 04-17-2025 [facility] Start: 04-17-2025 Oxygen therapy [facility] Start: 04-13-2025 Development of care plan [facility] Start: 04-13-2025 End: 04-13-2025 [facility] Start: 04-13-2025 Patient discharge [facility] Start: 04-12-2025 [facility] Start: 04-11-2025 Referral to occupati onal therapist [facility] Start: 04-11-2025 Developing a treatme nt plan [facility] Start: 04-11-2025 [facility] Start: 04-11-2025 Wound care [facility] Start: 04-11-2025 Consultation for treatment [facility] Start: 04-11-2025 Contact precautions [facility] Start: 04-10-2025 Following clinical p athway protocol [facility] Start: 04-10-2025 Admission procedure [facility] Start: 04-10-2025 Introduction of urin dakota catheter [facility] Start: 04-10-2025 Measuring intake and output [facility] Start: 04-10-2025 End: 04-11-2025 Patient referral to dietitian [facility] Start: 04-10-2025 Referral to occupati onal therapist [facility] Start: 04-10-2025 Referral to service [facility] Start: 04-10-2025 Vital signs measurements [facility] Start: 04-10-2025 Oxygen therapy [facility] Start: 04-10-2025 Patient discharge [facility] Start: 04-10-2025 End: 04-10-2025 Microbial culture, body fluid [facility] Start: 04-10-2025 Anaerobic microbial culture [facility] Start: 04-10-2025 End: 04-10-2025 [facility] Start: 04-09-2025 Referral to service [facility] Start: 04-09-2025 Care planning and pr oblem solving actions [facility] Start: 04-09-2025 Assessment of risk o f venous thromboembolism [facility] Start: 04-09-2025 Catheterization of vein [facility] Start: 04-09-2025 Notification of physician [facility] Start: 04-09-2025 Taking patient vital signs [facility] Start: 04-09-2025 Wound care [facility] Start: 04-09-2025 End: 04-09-2025 [facility] Start: 04-09-2025 Care planning and pr oblem solving actions [facility] Start: 04-09-2025 [facility] Start: 04-08-2025 Catheterization of vein [facility] Start: 04-08-2025 Notification of physician [facility] Start: 04-08-2025 [facility] Start: 04-08-2025 Referral to contractor buyer [facility] Start: 04-08-2025 End: 04-08-2025 Referral to service [facility] Start: 04-07-2025 Referral to occupati onal therapist [facility] Start: 04-07-2025 Referral to service [facility] Start: 04-07-2025 Provision of activit y privileges [facility] Start: 04-07-2025 Wound care [facility] Start: 04-06-2025 [facility] Start: 04-06-2025 Continuous pulse oximetry [facility] Start: 04-06-2025 Consultation for treatment [facility] Start: 04-06-2025 XR Chest Single view [facility] Start: 04-06-2025 [facility] Start: 04-06-2025 Inhalation therapy procedure [facility] Start: 04-05-2025 Following clinical p athway protocol [facility] Start: 04-05-2025 Assessment of risk o f venous thromboembolism [facility] Start: 04-05-2025 Care regimes management [facility] Start: 04-05-2025 Catheterization of vein [facility] Start: 04-05-2025 Insertion of cathete r into peripheral vein [facility] Start: 04-05-2025 Measuring intake and output [facility] Start: 04-05-2025 Notification of physician [facility] Start: 04-05-2025 Oxygen therapy [facility] Start: 04-05-2025 Providing care accor ding to standard [facility] Start: 04-05-2025 Provision of activit y privileges [facility] Start: 04-05-2025 Referral to occupati onal therapist [facility] Start: 04-05-2025 Referral to service [facility] Start: 04-05-2025 End: 04-05-2025 [facility] Start: 04-05-2025 Referral to rotogravure press operator [facility] Start: 04-05-2025 Verification routine [facility] Start: 04-05-2025 Urinalysis complete panel - Urine [facility] Start: 04-05-2025 Admission procedure [facility] Start: 04-05-2025 Hospital admission, emergency, from emergency room, medical nature [facility] Start: 04-05-2025 End: 04-05-2025 [facility] Start: 04-05-2025 Patient referral to dietitian [facility] Start: 03-27-2025 24 Hour ECG [facility] Start: 03-15-2025 [facility] Start: 03-15-2025 Control nasal hemorr min anterior simple [facility] Start: 03-09-2025 Referral to service [facility] Start: 03-09-2025 Patient discharge [facility] Start: 03-08-2025 Application of elast ic bandage [facility] Start: 03-07-2025 Introduction of urin dakota catheter [facility] Start: 03-06-2025 Inhalation therapy procedure [facility] Start: 03-05-2025 [facility] Start: 03-05-2025 Care planning and pr oblem solving actions [facility] Start: 03-05-2025 Chest 1 View (Portable) Chest 1 View (Portable) [facility] Start: 03-05-2025 XR Chest Single view [facility] Start: 03-05-2025 Care planning and pr oblem solving actions [facility] Start: 03-04-2025 Following clinical p athway protocol [facility] Start: 03-04-2025 Assessment of risk o f venous thromboembolism [facility] Start: 03-04-2025 Care regimes management [facility] Start: 03-04-2025 Catheterization of vein [facility] Start: 03-04-2025 Insertion of cathete r into peripheral vein [facility] Start: 03-04-2025 Measuring intake and output [facility] Start: 03-04-2025 Notification of physician [facility] Start: 03-04-2025 Oxygen therapy [facility] Start: 03-04-2025 Providing care accor ding to standard [facility] Start: 03-04-2025 Provision of activit y privileges [facility] Start: 03-04-2025 Referral to contractor buyer [facility] Start: 03-04-2025 Referral to occupati onal therapist [facility] Start: 03-04-2025 Referral to service [facility] Start: 03-04-2025 End: 03-04-2025 [facility] Start: 03-04-2025 Hospital admission, emergency, from emergency room, medical nature [facility] Start: 03-04-2025 Verification routine [facility] Start: 03-04-2025 Admission procedure [facility] Start: 03-04-2025 Thyroid stimulating hormone measurement [facility] Start: 03-04-2025 [facility] Start: 03-04-2025 Patient referral to dietitian [facility] Start: 04-20-2024 Covid-19 Vaccine ( season) Covid-19 Vaccine ( season) [facility] Start: 04-20-2024 Influenza vaccination Influenza Vacc ine (#1) [facility] Start: 08-20-2023 Advance Directive Discussion Advance Directive Discussion [facility] Start: 06-22-2023 [facility] Start: 06-08-2023 Patient discharge [facility] Start: 06-08-2023 Anes open proc bones lower leg/ankle/foot nos ANESTH LOWER LEG BONE SURG [facility] Start: 06-08-2023 Osteot w/wo lngth shrt/corrj 1st metar INCISION OF METATARSAL [facility] Start: 06-08-2023 Prep site f/s/n/h/f/ g/m/d gt 1st 100 sq cm/1pct WOUND PREP F/N/HF/G [facility] Start: 06-08-2023 Sub grft f/s/n/h/f/g /m/d <100sq cm 1st 25 sq cm SKIN SUB GRAFT FACE/NK/HF/G [facility] Start: 06-08-2023 Fluoroscopic guidance O.R. Fluoro fo r C-Arm [facility] Start: 06-08-2023 Radiography of foot Foot 2 Views [facility] Start: 12-30-2022 [facility] Start: 12-30-2022 End: 12-30-2022 Blood culture [facility] Start: 12-30-2022 End: 12-30-2022 [facility] Start: 10-16-2022 CBC W Auto Different ial panel - Blood [facility] Start: 10-16-2022 Lactate dehydrogenas e measurement [facility] Start: 10-16-2022 End: 10-16-2022 [facility] Start: 07-18-2022 [facility] Work Phone: Start: 05-18-2022 [facility] Work Phone: Start: 05-11-2022 Patient referral [facility] Work Phone: Start: 04-28-2022 CORE NDL BX LNG/MED PERQ CORE NDL BX LNG/MED PERQ [facility] Work Phone: Start: 04-28-2022 Following clinical p athway protocol [facility] Work Phone: Start: 04-28-2022 Catheterization of vein [facility] Work Phone: Start: 04-28-2022 Oxygen therapy [facility] Work Phone: Start: 04-28-2022 Patient discharge [facility] Work Phone: Start: 04-28-2022 Vital signs measurements [facility] Work Phone: Start: 04-20-2022 Influenza vaccination INFLUENZA (#1) [facility] Start: 04-05-2022 End: 04-19-2022 Influenza virus A and B RNA and SARS-CoV-2 (COVID-19) N gene panel - Respiratory specimen by BRYAN with probe detection [facility] Work Phone: Comment on above: Expected: 04/05/2022 , Expires: 04/19/2022 Start: 08-20-2021 ADVANCE DIRECTIVE DISCUSSION ADVANCE DIRECTIVE DISCUSSION [facility] Start: 08-20-2021 DEPRESSION ASSESSMENT DEPRESSION ASS ESSMENT [facility] Start: 05-04-2021 COVID-19 VACCINE (3 - Booster for Moderna series) COVID-19 VACCINE (3 - Booster for Moderna series) [facility] Start: 01-27-2021 COVID-19 VACCINE (3 - Booster for Moderna series) COVID-19 VACCINE (3 - Booster for Moderna series) [facility] Start: 01-15-2020 RSV Vaccine (1 - 1-d ose 75+ series) RSV Vaccine (1 - 1-dose 75+ series) [facility] Start: 12-01-2018 DIABETES SCREEN [facility] Start: 12-01-2018 Diabetes Screening Diabetes Screenin g [facility] Start: 2010 Pneumococcal Vaccine : 65+ (1 of 1 - PCV) Pneumococcal Vaccine: 65+ (1 of 1 - PCV) [facility] Start: 2010 PNEUMOCOCCAL: 65+ (1 - PCV) PNEUMOCOCCAL: 65+ (1 - PCV) [facility] Start: 1995 SHINGRIX VACCINE (1 of 2) HEIN GRIX VACCINE (1 of 2) [facility] Start: 01-15-[address] [facility] Start: 1963 Anxiety Screening Anxiety Screening [facility] Start: 1963 Depression Screening Depression Scre ening [facility] Start: 1963 HEPATITIS C SCREENING HEPATITIS C SC DARCY [facility] Start: 1957 Adult depression scr eening assessment [facility] 24 Hour ECG [facility] Alanine aminotransfe rase [Enzymatic activity/volume] in Serum or Plasma [facility] Albumin [Mass/volume ] in Serum or Plasma [facility] Alkaline phosphatase [Enzymatic activity/volume] in Serum or Plasma [facility] Anaerobic Culture Anaerobic Culture [facility] Work Phone: Anion gap measurement [facility] Aspartate aminotrans ferase [Enzymatic activity/volume] in Serum or Plasma [facility] Bacteria identified in Blood by Culture Blood Culture [facility] Bacteria identified in Body fluid by Culture [facility] Bacteria identified in Unspecified specimen by Anaerobe culture [facility] Work Phone: Bacteria identified in Unspecified specimen by Anaerobe culture [facility] Bacteria identified in Urine by Culture URINE CULTURE Microbiology Routine Burning with urination 04/05/2022 1:58 PM EDT [facility] Work Phone: Bacteria identified in Urine by Culture Urine Culture [facility] Bilirubin, total measurement [facility] BUN/Creatinine ratio [facility] Calcium [Mass/volume ] in Serum or Plasma [facility] Carbon dioxide, tota l [Moles/volume] in Serum or Plasma [facility] CBC W Auto Different ial panel - Blood [facility] Work Phone: CBC W Auto Different ial panel - Blood [facility] CBC W Auto Different ial panel - Blood [facility] Chloride [Moles/volu me] in Serum or Plasma [facility] Creatinine [Moles/vo lume] in Serum or Plasma [facility] CT Chest and Abdomen W contrast IV [facility] CT Chest W contrast IV [facility] Work Phone: CT Chest W contrast IV [facility] Cytology report of B horace fluid Cyto stain [facility] Glucose [Mass/volume ] in Serum or Plasma [facility] Hematocrit [Volume Fraction] of Blood [facility] Hemoglobin [Mass/vol ume] in Blood [facility] Hemoglobin A1c/Hemoglobin.total in Blood [facility] Lactate dehydrogenas e measurement [facility] Lactate dehydrogenas e measurement [facility] LDH [facility] Work Phone: Leukocytes [#/volume ] in Blood [facility] Magnesium measurement [facility] Magnesium measurement [facility] Mean corpuscular hemoglobin concentration determination [facility] Mean corpuscular hemoglobin determination [facility] Measurement of renal function [facility] Microbial culture, routine Wound Culture [facility] Work Phone: Microscopic observat ion [Identifier] in Unspecified specimen by Gram stain [facility] MR Brain WO and W co ntrast IV [facility] Work Phone: Natriuretic peptide. B prohormone N-Terminal [Mass/volume] in Serum or Plasma [facility] Natriuretic peptide. B prohormone N-Terminal [Mass/volume] in Serum or Plasma [facility] Natriuretic peptide. B prohormone N-Terminal [Mass/volume] in Serum or Plasma [facility] Neutrophil count [facility] Neutrophil percent differential count [facility] Patient Education [facility] Work Phone: Patient referral [facility] Work Phone: Platelets [#/volume] in Blood [facility] Positron emission tomography with computed tomography [facility] Work Phone: Potassium [Moles/vol ume] in Serum or Plasma [facility] Procedure [facility] PT Unspecified body region [facility] Radiation oncology A ND/OR radiotherapy [facility] Work Phone: Radiation oncology A ND/OR radiotherapy [facility] Red blood cell count [facility] Red cell distributio n width determination [facility] Sodium [Moles/volume ] in Serum or Plasma [facility] Total protein measurement [facility] Troponin T.cardiac [Mass/volume] in Serum or Plasma by High sensitivity method [facility] Troponin T.cardiac [Mass/volume] in Serum or Plasma by High sensitivity method [facility] Troponin T.cardiac [Mass/volume] in Serum or Plasma by High sensitivity method [facility] Troponin T.cardiac [Mass/volume] in Serum or Plasma by High sensitivity method [facility] Urea nitrogen [Mass/volume] in Serum or Plasma [facility] [place] [place] Immunizations Immunization Date Immunization Notes Care Provider Fa cility 06-23-2024 influenza virus vaccine, unspecified formulation DR DAVID STERLING MD [facility] 02-26-2024 pneumococcal 20-shannon [...] 08-03-2014 influenza virus vaccine, unspecified formulation [facility] [place] Work Phone: [facility] 06-20-2013 Influenza virus vaccine [facility] 06-20-2013 Pneumococcal Vaccine [facility] Work Phone: 06-20-2013 pneumococcal vaccine , unspecified formulation Dr. Tonio Fajardo Work Phone: [facility] Payers Date Payer Category Payer Unknown [id number] 59 2025 Private Health Insurance [id number] 2022 Self-pay [id number] 2016 Self-pay [id number] 2009 Medicare [id number] 2009 Medicare [id number] 2009 [facility] ( and others) [id number] 2009 Unknown [employer] LIFE [id number] 2009-Present [phone] [address] [place] [address] Indemnity [id number] 1945 Unknown [id number] 2.16.840.1.725730.3.579.2 .627 Unknown [id number] 2.16.840.1.330183.3.579.2 .462 Unknown [id number] 2.16.840.1.530818.3.579.2 .462 Unknown [id number] 2.16.840.1.508491.3.579.2 .462 Unknown [id number] 2.16.840.1.567974.3.579.2 .462 Unknown [id number] 2.16.840.1.599302.3.579.2 .462 Unknown [id number] 2.16.840.1.393882.3.579.2 .462 Unknown [id number] 2.16.840.1.206696.3.579.2 .462 Unknown [id number] 2.16.840.1.339868.3.579.2 .462 Unknown [id number] 2.16.840.1.029923.3.579.2 .462 Unknown [id number] 2.16.840.1.819737.3.579.2 .462 Unknown [id number] 2.16.840.1.169365.3.579.2 .462 Unknown [id number] 2.840.1.450871.3.579.2 .462 Unknown [id number] 2.16.840.1.998362.3.579.2 .462 Unknown [id number] 2.16.840.1.173307.3.579.2 .462 Unknown [id number] 2.840.1.317214.3.579.2 .462 Unknown [id number] 2.840.1.149284.3.579.2 .462 Unknown [id number] 2.840.1.010938.3.579.2 .462 Unknown [id number] 2.840.1.564170.3.579.2 .462 Unknown [id number] 2.840.1.197126.3.579.2 .462 Unknown [id number] 2.840.1.637632.3.579.2 .462 Unknown [id number] 2.840.1.126066.3.579.2 .462 Unknown [id number] 2.840.1.732453.3.579.2 .462 Unknown [id number] 2.840.1.346498.3.579.2 .462 Unknown [id number] 2.840.1.819860.3.579.2 .462 Unknown [id number] 2.840.1.666414.3.579.2 .462 Unknown [id number] 2.840.1.918178.3.579.2 .462 Unknown [id number] 2.840.1.112117.3.579.2 .462 Unknown [id number] 2.840.1.711815.3.579.2 .462 Unknown [id number] 2.840.1.678950.3.579.2 .462 Unknown [id number] 2.16.840.1.997566.3.579.2 .462 Unknown [id number] 2.16.840.1.188752.3.579.2 .462 Unknown [id number] 2.16.840.1.204896.3.579.2 .462 Unknown [id number] 2.16.840.1.038924.3.579.2 .462 Unknown [id number] 2.16.840.1.277327.3.579.2 .462 Unknown [id number] 2.16.840.1.304707.3.579.2 .462 Unknown [id number] 2.16.840.1.358203.3.579.2 .462 Unknown [id number] 2.840.1.014081.3.579.2 .462 Unknown [id number] 2.840.1.332756.3.579.2 .462 Unknown [id number] 2.840.1.319641.3.579.2 .462 Unknown [id number] 2.840.1.668184.3.579.2 .462 Unknown [id number] 2.840.1.369913.3.579.2 .462 Unknown [id number] 2.840.1.353690.3.579.2 .462 Unknown [id number] 2.840.1.973365.3.579.2 .462 Unknown [id number] 2.16.840.1.821889.3.579.2 .462 Unknown [id number] 2.16.840.1.981787.3.579.2 .462 Unknown [id number] 2.16.840.1.628842.3.579.2 .462 Unknown [id number] 2.840.1.603488.3.579.2 .462 Unknown [id number] 2.16.840.1.658629.3.579.2 .462 Social History Date Type Detail Facility Start: 01-06-2021 End: 10-31-2023 Tobacco smoking status CAIS Unknown if ever smoked [facility] Start: 08-27-2013 None [facility] Start: 03-18-2014 Spouse/ Signif icant Other [facility] Start: 06-20-2014 Non-smoker [facility] Start: 1945 Sex Assigned At Male W [facility] Start: 04-05-2022 End: 04-19-2025 Tobacco smoking status NHIS Ex-smoker [facility] Work Phone: History of tobacco use Current smoker [facility] Work Phone: History of tobacco use Cigarette Smoker [facility] Work Phone: Start: 04-05-2022 Tobacco use and exposure Former smokeless tobacco user [facility] Work Phone: Start: 1945 Sex Assigned At Not on file [facility] Start: 03-26-2022 End: 04-05-2022 Exposure to SARS-CoV-2 (event) Not sure [facility] Work Phone: Start: 04-05-2022 History of [address] function [facility] Start: 04-05-2022 Tobacco use panel [facility] Start: 10-30-2024 End: 04-13-2025 Sex Male (finding) [facility] Tobacco smoking status [facility] [...] FDA Start: 06-08-2023 Bunionectomy FDA Start: 06-08-2023 ([id number]) [id number] 759(2 1)[id number] FDA Start: 04-09-2025 ([id number]) [id number] 766(2 1)[id number] FDA Start: 04-09-2025 ([id number]) [id number] 846(2 1)[id number] FDA Start: 04-09-2025 Goals Date Patient Goal Desired Activity /State Functional Status Date Assessment Result Facility 04-19-2025 Functional status Bedrest [facility] Work Phone: 04-12-2025 Functional status Chair [facility] Work Phone: 04-10-2025 Functional status Stand and pivot [facility] Work Phone: 03-09-2025 Functional status Chair [facility] Work Phone: Mental Status Date Assessment Result Facility 04-19-2025 Cognitive function Awake;Alert;A ppropriate;Follow s Commands [facility] Work Phone: 04-18-2025 Cognitive function Voice/Name [facility] Work Phone: 04-17-2025 Cognitive function Appropriate;Cooperativ e [facility] Work Phone: 04-12-2025 Cognitive function Voice/Name [facility] Work Phone: 04-10-2025 Cognitive function Voice/Name [facility] Work Phone: 04-05-2025 Cognitive function Awake;Alert;A ppropriate;Follow s Commands [facility] Work Phone: 03-09-2025 Cognitive function Voice/Name [facility] Work Phone: 06-08-2023 Cognitive function Voice/Name [facility] Work Phone: 12-30-2022 Cognitive function Level Of Cons ciousness Awake;Alert;Appropriate;Follow s Commands [facility] Work Phone: 04-28-2022 Cognitive function Voice/Name [facility] Work Phone: 04-14-2022 Cognitive function Level Of Cons ciousness Awake;Appropriate;Follows Commands;Drowsy [facility] Work Phone: Clinical Notes 04-05-2022 to 04-19-2025 Note Date & Type Note Facility 04-19-2025 Note [facility] 04-19-2025 Progress note Note Date/Time April 19, 2025 10:10am [facility] Medical Records Department [address] [place] [address] Progress Note - Pharmacy 04/19/25 0820 MR#: [id number] Acct: [id number] Name: PEDRO HILLMAN Rep #:[id number] : 1945 80 From: Mukul Barbosa PCP: Dr. Tonio Fajardo, DO Status:ADM IN Location: TCU [facility]22-1 Documented by User: Mukul Barbosa 04/19/25 08:39 [...] 120 Ml Liquid PO 120 ml TIDCM FROY Administration Nystatin 1 applic 04/18/25 10:00 04/18/25 21:40 Nystatin Powder 15gm Bottle TOPICAL 1 applic BID FROY Administration Protocol Pravastatin Sodium 20 mg 04/17/25 [...] by Valdez Olivo MD> CC: ~ Signed [facility] Work Phone: 1(772) 968-555108-31-2025 Radiology Diagnostic study [facility]08-30-2025 Note. MICRO - Microbiology PROCEDURE: Blood Culture [...] test was performed at: [facility], [address] [place] [address], [facility] , [facility]08-30-2025 Note. MICRO - Microbiology PROCEDURE: Blood Culture [...] test was performed at: [facility], [address] [place] [address], [address]- , [facility] [id number] History and physical note Author Valdez Geovani [facility] Note Date/Time April 18, 2025 6: 56am [facility] Medical Records Department [address] [place] [address] History & Physical Exam 04/17/251940 MR#: [id number] Acct: [id number] Name: PEDRO HILLMAN Rep #:[id number] : 1945 80 From: Valdez Olivo MD PCP: Dr. Tonio Fajardo, DO Status:ADM IN Location: TCU TCU22-1 HPI - General General Date of Admission: 04/17/25 Date of Service: 04/18/25 Chief Complaint: Here for rehabilitation. HPI Narrative PEDRO HILLMAN, is a 80 Male who presents with followin04/12/2025 [facility] ED TCU resident shortness of breath, hypoxia, tachycardia. Diagnosed with pneumothorax, pneumonia, acute on chronic HFpEF, COPD exacerbation. Transfer to [facility] 2/2 complicated pneumothorax. 04/13/2025 Admit [facility]. Ceftriaxone, Azithromycin, blood cultures, urinary antigens for [...] rehabilitation, strengthening, prior to discharge home alone. [facility] Medical History (Updated 04/18/25 @ 00:01 by Background Daemon) Presence of cardiac pacemaker Peripheral arterial disease Other persistent atrial fibrillation New onset atrial flutter COVID Wears hearing aid in both ears Former smoker Coronary artery disease Peripheral vascular occlusive disease BPH (benign prostatic hyperplasia) Chronic kidney disease, stage 3 Atherosclerosis of coronary artery of [place] heart without angina pectoris Hyperlipidemia Lower extremity [...] hr (Mucinex) #20 tabs OXYGEN - Supplemental ([facility] 04/09/25 Unknown History INFORMATIONAL USE ONLY) aspirin 81 mg chewable tablet 1 tab PO DAILY [facility] 04/17/25 Unknown History ipratropium 0.5 mg-albuterol 3 [...] Surgical History (Updated 04/18/25 @ 00:01 by Background Daemon) History of permanent cardiac pacemaker placement H/O [...] Fajardo, DO; Dr. Valdez Olivo MD~ Signed [facility] Work Phone: 1(752) 828-525908-29-2025 [facility]08-29-2025 Discharge summary Date of Service 04/17/2025 Discharge [...] nasal cannula presented as a transfer from [facility] for further evaluation of possible hydropneumothorax. Apparently, patient underwent pacemaker placement at [facility] last week , next day, patient was found to have pleural effusion and underwent thoracentesis and was admitted to rehab at [facility]. Patient found to have hypoxia and [...] with cardiothoracic surgery, he was transferred to [facility]. Patient admitted to hospital service, started on [...] tablet)500 Milligram by mouth every day. insulin kcdqegtt32 unit(s) Subcutaneous daily at bedtime. metoprolol (metoprolol succinate 25 mg oral TABLET extended release)0.5 tab(s) by mouth two (2) times a day. Do not crush or chew (controlled release). multivitamin with minerals (Multi-Braden)1 tab by mouth every day. smzmdtlohlz93 Milligram by mouth once a day. SITagliptin (Januvia 50 mg oral tablet)1 tab(s) by mouth once a day. tamsulosin (tamsulosin 0.4 mg oral capsule)1 cap by mouth once a day. umeclidinium-vilanterol (Anoro Ellipta 62.5 mcg-25 mcg/inh inhalation powder)1 puff(s) by inhalation once a day. Discontinued cefdinir (cefdinir 300 mg oral capsule)1 cap by mouth every 12 hours for 5 Days. yvgzipTBHT32 Milligram by mouth two (2) times a day for 5 Days. Follow Up Follow Up with TONIO FAJARDO DO When:Within 1-2 days Where:[address] [place] [address]- Additional Information: Please call the office to [...] ROSARIO on 04/17/2025 01:18 PM [id number] Discharge instructions Patient Education 04/17/2025 13:56:28 [...] says it is okay. General instructions Take qpjn-ckn-yjcyfon and prescription medicines only as told by [...] 08/06/2006 Document Revised: 07/19/2018 Document Reviewed: 07/15/2018 [employer] Patient Education 2020 [employer]. Follow Up Care 04/13/2025 00:27:18 With:[facility] - [phone] Address:Unknown When:1-2 days With:TONIO FAJARDO DO Address: [address] [place] [address]- When:1-2 days Comments:Please call the office to schedule a hospital follow up appointment. [facility] 08-29-2025 Note Discharge Instructions Thank you for allowing [facility] to assist you with your healthcare needs. The following is importantdischarge information regarding your hospital visit. Your Care Team TONIO FAJARDO DO Your Diagnosis Atrial fibrillation BPH (benign prostatic hyperplasia) CAD in [place] artery s/p CABG Cardiac pacemaker in situ Chronic anemia CKD (chronic kidney disease) COPD with hypoxia Diabetes Diastolic heart failure Elevated troponin HLD (hyperlipidemia) HTN (hypertension) PAD (peripheral artery disease) Peripheral neuropathy Pneumonia Right Hydropneumothorax What to do next Follow Up Appointments Follow Up with [facility] - [phone] When:Within 1-2 days Follow Up with TONIO FAJARDO DO When:Within 1-2 days Where:[address] [place] [address]- Additional Information: Please call the office to [...] says it is okay. General instructions Take susz-hfx-djiqqyi and prescription medicines only as told by [...] 08/06/2006 Document Revised: 07/19/2018 Document Reviewed: 07/15/2018 [employer] Patient Education 2020 [employer] Additional Information VACCINATE! IT SAVES LIVES! Members of the community who have not yet received the COVID-19 vaccine and would like to receive it can visit one of [facility] vaccine clinics. There are many vaccine clinic locations within the [facility]. For locations and available times, please visit [email or web address].gov/. It is important to note that some COVID mobile vaccine clinics are held outdoors and may be canceled in rainy or stormy conditions. To learn more about pediatric vaccinations (ages 5-11), we invite you to visit the [facility] webpage. https://www.[email or web address]/pages/2523-Qknnk-Jqqszxfdyvy-Dilqewofgt-Qrnir-Sch stions.htmlTo learn more about the COVID-19 vaccine, we invite you to visit the CDC website for a list of frequently asked questions.https://www.cdc.gov/coronavirus/2019-ncov/vaccines/faq.html [employer] Patient Portal Access Instructions: Stay connected with your healthcare team and access your personal medical information anytime with the [employer] Patient Portal. Please follow the directions below to create your [employer] account: 1.Access the email account you provided upon registration to the hospital/physician office.2.Look for an invitation email from [facility].3.Open the email and access the invitation link: AcceptInvitation to [employer].4.Fill in the required johnson to create your account. To access your account, visit [email or web address]. Click the blue button labeled Access Patient [...] who you will allowto register on the [employer] Patient Portal for access to your information. You can also access the [employer] Patient Portal on the [facility] [facility] katia. Simply click on Patient Portal and then log into your account. If you would like to receive a full copy of your medical records, please contact the [facility] Medical Records Department by calling [phone], Sunday through Sunday between 8 a.m. and [...] Call your local pharmacy or go to http://WebPesados.Fabbeo/6V7Xc4c to find one close to you.3.Make use of household items: Use cat litter or old coffee grounds to dispose medications if other options arenot available. Mix your drugs with these household products, seal them in an airtight container andthrow it into the garbage. Call [facility]: [phone] to be sure your drugs can be [...] aware that I should contact my doctor. 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 The following is importantdischarge information regarding your hospital visit. Your Care Team TONIO FAJARDO DO Your Diagnosis Atrial fibrillation BPH (benign prostatic hyperplasia) CAD in [place] artery s/p CABG Cardiac pacemaker in situ Chronic anemia CKD (chronic kidney disease) COPD with hypoxia Diabetes Diastolic heart failure Elevated troponin HLD (hyperlipidemia) HTN (hypertension) PAD (peripheral artery disease) Peripheral neuropathy Pneumonia Right Hydropneumothorax What to do next Follow Up Appointments Follow Up with [facility] - [phone] When:Within 1-2 days Follow Up with TONIO FAJARDO DO When:Within 1-2 days Where:[address] [place] [address]- Additional Information: Please call the office to [...] to receive it can visit one of [facility] vaccine clinics. There are many vaccine clinic locations within the [facility]. For locations and available times, please visit [email or web address].gov/. It is important to note that some COVID mobile vaccine clinics are held outdoors and may be canceled in rainy or stormy conditions. To learn more about pediatric vaccinations (ages 5-11), we invite you to visit the [facility] webpage. https://www.[facility].org/pages/7054-Ulkpm-Agguqbpelbm-Mhtjejraad-Tvjky-Qxl stions.htmlTo learn more about the COVID-19 vaccine, we invite you to visit the CDC website for a list of frequently asked questions.https://www.cdc.gov/coronavirus/2019-ncov/vaccines/faq.html [facility] Patient Portal Access Instructions: Stay connected with your healthcare team and access your personal medical information anytime with the [facility] Patient Portal. Please follow the directions below to create your [facility] account: 1.Access the email account you provided upon registration to the hospital/physician office.2.Look for an invitation email from [facility].3.Open the email and access the invitation link: AcceptInvitation to [facility].4.Fill in the required johnson to create your account. To access your account, visit [email or web address]. Click the blue button labeled Access Patient [...] who you will allowto register on the [facility] Patient Portal for access to your information. You can also access the [facility] Patient Portal on the [facility] katia. Simply click on Patient Portal and then log into your account. If you would like to receive a full copy of your medical records, please contact the [facility] Medical Records Department by calling [phone], Sunday through Sunday between 8 a.m. and [...] Call your local pharmacy or go to http://bit.ly/6T3Xp4p to find one close to you.3.Make use of household items: Use cat litter or old coffee grounds to dispose medications if other options arenot available. Mix your drugs with these household products, seal them in an airtight container andthrow it into the garbage. Call [facility]: [phone] to be sure your drugs can be [...] aware that I should contact my doctor. 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 Apparently, patient underwent pacemaker placement at [facility] last week , next day, patient was found to have pleural effusion and underwent thoracentesis and was admitted to rehab at [facility]. Patient found to have hypoxia and [...] with cardiothoracic surgery, he was transferred to [facility]. Patient admitted to hospital service, started on [...] to Physician - Ordered -- 04/16/25 7:30:00 EDKERMIT Becerril BRENT V MD, Routine, Pleural effusion, exudative Imaging Results [...] Result Date: April 14, 2025 Verified By: ELVI MARCIAL MD CLINICAL STATEMENT: IMPRESSION: 1. Moderate [...] tablet)500 Milligram by mouth every day. insulin yrbszsox02 unit(s) Subcutaneous daily at bedtime. metoprolol (metoprolol succinate 25 mg oral TABLET extended release)0.5 tab(s) by mouth two (2) times a day. Do not crush or chew (controlled release). multivitamin with minerals (Multi-Braden)1 tab by mouth every day. dbaztdmzxhd57 Milligram by mouth once a day. SITagliptin (Januvia 50 mg oral tablet)1 tab(s) by mouth once a day. tamsulosin (tamsulosin 0.4 mg oral capsule)1 cap by mouth once a day. umeclidinium-vilanterol (Anoro Ellipta 62.5 mcg-25 mcg/inh inhalation powder)1 puff(s) by inhalation once a day. Discontinued cefdinir (cefdinir 300 mg oral capsule)1 cap by mouth every 12 hours for 5 Days. elnosjGXAX80 Milligram by mouth two (2) times a day for 5 Days. Follow Up Follow Up with SCOTTY, TONIO A DO When:Within 1-2 days Where:[address] [place] [address]- Additional Information: Please call the office to [...] ROSARIO on 04/17/2025 01:18 PM [facility] [id number] Note* Exam Date Time Procedure Performing Provider Status 04/17/25 7:03 AM XR Chest 1 View KRISTEN MAKI MD; Aut h (Verified) [id number] ORIGINAL EXAMINATION: ONE XRAY VIEW OF THE [...] Date: 04/17/2025 8:12:37 AM Ordering Provider: GLORIA [facility]08-28-2025 NoteORIGINAL PROCEDURE: ULTRASOUND GUIDED THORACENTESIS CLINICAL STATEMENT: [...] Sign Date: 04/16/2025 5:19:34 PM Ordering Provider: [facility] [id number] Note Date of Service 04/16/2025 Chief Complaint [...] nasal cannula presented as a transfer from [facility] for further evaluation of possible hydropneumothorax. Apparently, patient underwent pacemaker placement at [facility] last week , next day, patient was found to have pleural effusion and underwent thoracentesis and was admitted to rehab at [facility]. Patient found to have hypoxia and [...] with cardiothoracic surgery, he was transferred to [facility]. Patient admitted to hospital service, started on [...] fibrillation BPH (benign prostatic hyperplasia) CAD in [place] artery s/p CABG Cardiac pacemaker in situ [...] by weight. Plan for discharge back to [facility] facility hopefully next 24-48 hours if he [...] MD on 04/16/2025 01:33 PM [facility] [id number] Pulmonary Consult note Date of Service 04/16/2025 [...] 71.2 kg (04/16/25) Current Weight: 73 kg (08/27/25) On exam: The patient is alert and [...] fibrillation BPH (benign prostatic hyperplasia) CAD in [place] artery s/p CABG Cardiac pacemaker in situ [...] fibrillation BPH (benign prostatic hyperplasia) CAD in [place] artery Cardiac pacemaker in situ Chronic anemia [...] MD on 04/16/2025 01:14 PM [facility] [id number] Note. MICRO - Microbiology PROCEDURE: Acid Fast Bacilli Culture w Stain if Ind [*1] SOURCE: Thoracentesis Fluid BODY SITE: COLLECTED DATE/TIME: 04/15/2025 08:52 EDT RECEIVED DATE/TIME: 04/15/2025 14:18 EDT START DATE/TIME: 04/15/2025 14:18 EDT FREE TEXT SOURCE: STAINS AFS [] Verified Date/Time/Personnel: 04/16/2025 12:33 EDT Acid Fast Smear from Concentrated Specimen: Negative Performing Locations *1: This test was performed at: [facility], [address] [place] [address], [address] , [facility]08-28-2025 Note. MICRO - Microbiology PROCEDURE: Fungal Culture with Stain if Ind [*1] SOURCE: Thoracentesis Fluid BODY SITE: COLLECTED DATE/TIME: 04/15/2025 08:52 EDT RECEIVED DATE/TIME: 04/15/2025 14:18 EDT START DATE/TIME: 04/15/2025 14:18 EDT FREE TEXT SOURCE: STAINS FUNSM [] Verified Date/Time/Personnel: 04/16/2025 12:32 EDT No fungal elements observed by calcofluor white stain. Performing Locations *1: This test was performed at: [facility], [address] [place] [address], [address] , [facility]08-28-2025 Nurse Progress note I was ambulating the [...] the incident. Digitally Signed by [place] [facility] on 04/16/2025 10:23 AM [facility] [id number] Note. MICRO - Microbiology PROCEDURE: Culture Body [...] test was performed at: [facility], [address] [place] [address], [address]- , [facility]08-27-2025 Note Date of Service 04/15/2025 Chief Complaint [...] nasal cannula presented as a transfer from [facility] for further evaluation of possible hydropneumothorax. Apparently, patient underwent pacemaker placement at [facility] last week , next day, patient was found to have pleural effusion and underwent thoracentesis and was admitted to rehab at [facility]. Patient found to have hypoxia and [...] with cardiothoracic surgery, he was transferred to [facility]. Patient admitted to hospital service, started on [...] fibrillation BPH (benign prostatic hyperplasia) CAD in [place] artery s/p CABG Cardiac pacemaker in situ [...] by weight. Plan for discharge back to [facility] facility once medically stable. No family at [...] MD on 04/15/2025 04:24 PM [facility] [id number] Note* Exam Date Time Procedure Performing Provider Status 04/15/25 11:36 AM XR Chest 1 View SHAHBAZ FOLEY MD; Aut h (Verified) [id number] ORIGINAL EXAMINATION: ONE XRAY VIEW OF THE [...] Date: 04/15/2025 11:43:46 AM Ordering Provider: [facility]IDE [facility] [id number] Note* Exam Date Time Procedure Performing Provider Status 04/15/25 11:35 AM US Thoracentesis Right GIBSON REINA; Mahesh (Verified) [id number] ORIGINAL PROCEDURE: ULTRASOUND GUIDED THORACENTESIS CLINICAL STATEMENT: [...] Sign Date: 04/16/2025 5:19:34 PM Ordering Provider: [facility]08-27-2025 Note US Procedure Record Summary Primary Physician: OLAMIDE GONZALEZ PA-C Finalized Date/Time: 04/15/25 11:32:18 Pt. Name: PEDRO HILLMAN /Sex: 1945 Male Med Rec #: [id number] Physician: DAVID STERLING MD Financial #: [id number] Pt. Type: I Room/Bed: [facility]/A Admit/Disch: 04/13/25 05:27:00 - Institution: Allergies identified in patient's electronic medical record at time of printing on 04/15/25 Entry 1 Substance ibuprofen Reaction Type Allergy Last Modified By: KHURRAM Merchant 04/13/25 06:04:52 Case Attendance- US Entry 1 Entry 2 Case Attendee OLAMIDE GONZALEZ Lauren M PA-C Role Performed Primary Surgeon Education Paraprofessional Details Time In 04/15/25 11:08:00 04/15/25 11:08:00 [...] Data- US Entry 1 Case Information Room AH Rad Receiving Case Level IR Level 2 [...] instrumentation, sponges, or sharps). Outcomes Met? Yes Cash Applications Associate OLAMIDE GONZALEZ Completing ROGER Procedure Plan Last Modified By: Michaela Barnard 04/15/25 11:16:00 Radiology Lines and Procedures- US Entry 1 Radiology Sedation Case Times Sedation Total Time 0 Radiology - Fluid/Drainage Fluid Amount mL: 1000 ml Fluid Description sheldon RAD - US [place], Guidewires, Cath.... Catheters OneStep Catheter 5 Fr [...] By: Michaela Barnard 04/15/25 11:32 [facility] [id number] NoteBody Fluid Path ReviewNegative for malignant cells. [...] sided permanent pacemaker on , 04/09/2025 at [facility]. The following day, he had a chest x-ray completed revealing a right pleural effusion and underwent a thoracentesis(amount of volume removed unknown). He was discharged to [facility] rehab facility same day. While at rehab facility, he was noted to be hypoxic and tachycardic and a chest x-ray was completed showing aright pneumothorax. He was taken to [facility] emergency room where he was further evaluated [...] on 100% nonrebreather mask, and transferred to [facility] for further evaluation. Cardiothoracic surgery has [...] Hydropneumothorax CT of the chest completed at [facility] on 04/12/2025 showing right loculated hydropneumothorax with an estimated 15% of right thoracic volume occupied by air Patient has been on 100% nonrebreather Currently denies any shortness of breath or chest pain Stat chest x-ray completed this afternoon showing Right-sided hydropneumothorax not significantly changed with approximately 6 mm apical pleural separation No surgical intervention planned at this time after discussion with Dr. Wagonre via phone. Please see Dr. Wagoner's addendum to follow. 2. Pneumonia CT of the chest completed at [facility] on 04/12/2025 showed apical and some [...] anemia 13. HTN (hypertension) 14. CAD in [place] artery s/p CABG 15. Diastolic heart failure 16. COPD with hypoxia 48 minutes of independent KATIA time spent obtaining past medical history from EMR, conducting [facility] to request CT of the chest imaging, completing okxc-hj-rvwi visit with patient at bedside, obtaining physical exam, and dictating details of today's consultation. Problem List/Past Medical History Ongoing Atrial fibrillation BPH (benign prostatic hyperplasia) CAD in [place] artery Cardiac pacemaker in situ Chronic anemia [...] DOE on 04/13/2025 03:08 PM [id number] Note* Exam Date Time Procedure Performing Provider Status 04/15/25 6:48 AM XR Chest 1 View LEVI MARCIAL MD; Auth (Verified) [id number] ORIGINAL EXAMINATION: ONE XRAY VIEW OF THE [...] AM Ordering Provider: GLORIA DAVIS [id number] Note* Exam Date Time Procedure Performing Provider Status 04/14/25 9:03 PM Electrocardiogram - EKG - CV JOSE GUADALUPEP BRAYAN JARAMILLO MD; Auth (Verified) ECG Final Report SINUS TACHYCARDIA VENTRICULAR PREMATURE COMPLEX RIGHT BUNDLE BRANCH BLOCK Electronic Signature: BRAYAN FRANCO MD 04/15/2025 22:51:41 [facility]Ptjhavfd03-[facility]-8006 Note Date of Service 04/14/2025 Chief Complaint [...] fibrillation BPH (benign prostatic hyperplasia) CAD in [place] artery s/p CABG Cardiac pacemaker in situ [...] as of now. Discussed with cardiothoracic surgery BARGE ENGINEER. Will give one-time dose of IV Lasix [...] for now. Plan for discharge back to fpc facility once medically stable. Note was dictated [...] MD on 04/14/2025 04:44 PM [id number] Note. MICRO - Microbiology PROCEDURE: Legionella Urine [...] Locations *1: This test was performed at: [address], [facility] , [facility]08-26-2025 Note. MICRO - Microbiology PROCEDURE: Streptococcus [...] test was performed at: [facility], [address] [place] [address], [id number] , [facility]08-26-2025 Note* Exam Date Time Procedure Performing Provider Status 04/14/25 6:55 AM XR Chest 1 View LEVI MARCIAL MD; Auth (Verified) [id number] ORIGINAL EXAMINATION: ONE XRAY VIEW OF THE [...] AM Ordering Provider: COLLEEN DOE [id number] History and physical note [facility] History and Physical Date of Admission: patient is being admitted on April 13, 2025 Chief complaint: pneumothorax History of present illness: History was taken from talking with the emergency room physician at [facility] as well as talking with the [...] the patient had a pacemaker placed at [facility]. On Sunday of this past week the patient was found to have pleural effusion and had a thoracentesis. The patient was admitted to rehab at [facility]. Yesterday the patient had episodes of [...] CT chest without contrast showed right loculated [place] pneumothorax of estimated 15% of the right thoracic volume occupied by air. Patches of dense consolidating right pneumonia. Sizable peripheral blebs and honeycombing in the left mid and base. Prior to transfer they did discuss the case with cardiothoracic surgery combination worker and the patient wasgiven vancomycin and Zosyn. [...] Vitals Signs(Last 24 hrs)__Last Charted Minimum Maximum KRS751(APR 13 05:28)135(APR 13:28)135(APR 13:) DBP78(APR 13:28)78(APR 13:28)78(APR 13:28) Physical examination: HEENT: No Pallor, No Icterus Cardiac: tachycardia, No murmur Lungs: diffuse crackles in respiratory stress Abdomen: Soft Non tender Musculoskeletal: No joint pains or swelling Extremities: No edema, good pulses Neurological: Alert, no deficits Skin: No rash, no nodules Labs: as mentioned in the HPI. Assessment and plan: Patient presents from [facility] on April 13, 2025 due to [...] MD on 04/13/2025 05:49 AM [facility]Nwfslglx78-20-2712 Respiratory therapy Hospital Progress note Respiratory Therapy [...] Student on 04/13/2025 04:09 PM [id number] Cardiothoracic surgery Consult note Date of Service [...] sided permanent pacemaker on , 04/09/2025 at [facility]. The following day, he had a chest x-ray completed revealing a right pleural effusion and underwent a thoracentesis(amount of volume removed unknown). He was discharged to [facility]hab facility same day. While at rehab facility, he was noted to be hypoxic and tachycardic and a chest x-ray was completed showing aright pneumothorax. He was taken to [facility] emergency room where he was further evaluated [...] on 100% nonrebreather mask, and transferred to [facility] for further evaluation. Cardiothoracic surgery has [...] Hydropneumothorax CT of the chest completed at [facility] on 04/12/2025 showing right loculated hydropneumothorax [...] Pneumonia CT of the chest completed at [facility] on 04/12/2025 showed apical and some [...] anemia 13. HTN (hypertension) 14. CAD in [place] artery s/p CABG 15. Diastolic heart failure 16. COPD with hypoxia 48 minutes of independent KATIA time spent obtaining past medical history from EMR, conducting [facility] to request CT of the chest imaging, completing aoxt-vc-byrz visit with patient at bedside, obtaining physical exam, and dictating details of today's consultation. Problem List/Past Medical History Ongoing Atrial fibrillation BPH (benign prostatic hyperplasia) CAD in [place] artery Cardiac pacemaker in situ Chronic anemia [...] DOE on 04/13/2025 03:08 PM [id number] Note* Exam Date Time Procedure Performing Provider Status 04/13/25 2:42 PM XR Chest 1 View MÓNICA ZALDIVAR DO; [facility] (Verified) [id number] ORIGINAL EXAMINATION: ONE XRAY VIEW OF THE [...] Date: 04/13/2025 2:58:50 PM Ordering Provider: COLLEEN Revelesltman [id number] Evaluation + Plan noteExtracted from: Title:Clinical Document Author:DAVID STERLING MD Date:04/13/25 [facility] History and Physical Date of Admission: patient is being admitted on April 13, 2025 Chief complaint: pneumothorax History of present illness: History was taken from talking with the emergency room physician at [facility] as well as talking with the [...] the patient had a pacemaker placed at [facility]. On Sunday of this past week the patient was found to have pleural effusion and had a thoracentesis. The patient was admitted to rehab at [facility]. Yesterday the patient had episodes of [...] CT chest without contrast showed right loculated [place] pneumothorax of estimated 15% of the right thoracic volume occupied by air. Patches of dense consolidating right pneumonia. Sizable peripheral blebs and honeycombing in the left mid and base. Prior to transfer they did discuss the case with cardiothoracic surgery combination worker and the patient was given vancomycin and [...] Vitals Signs(Last 24 hrs)__Last Charted Minimum Maximum FKA051(APR 13 05:28)135(APR 13 05:28)135(APR 13 05:28) DBP78(APR 13:)78(APR 13:28)78(APR 13:28) Physical examination: HEENT: No Pallor, No Icterus Cardiac: tachycardia, No murmur Lungs: diffuse crackles in respiratory stress Abdomen: Soft Non tender Musculoskeletal: No joint pains or swelling Extremities: No edema, good pulses Neurological: Alert, no deficits Skin: No rash, no nodules Labs: as mentioned in the HPI. Assessment and plan: Patient presents from [facility] on April 13, 2025 due to [...] 6:40 EDT medications will need reconciled once th ey are verified Addendum by GLORIA DAVIS [...] Other: Medihoney/adaptic/foam to right knee. Betadine to imaiy6dz, and 4th toes. Eucerin cream to BLE. Education Individuals Taught: Patient Learning Readiness: Willing to learn Barriers to Learning: Acuity of illness Teaching Method: Explanation Digitally Signed by Carol Galvin RN on 04/13/2025 01:26 PM [id number] [facility]08-25-2025 History and physical note [facility] History and Physical Date of Admission: patient is being admitted on April 13, 2025 Chief complaint: pneumothorax History of present illness: History was taken from talking with the emergency room physician at [facility] as well as talking with the [...] the patient had a pacemaker placed at [facility]. On Sunday of this past week the patient was found to have pleural effusion and had a thoracentesis. The patient was admitted to rehab at [facility]. Yesterday the patient had episodes of [...] CT chest without contrast showed right loculated [place] pneumothorax of estimated 15% of the right thoracic volume occupied by air. Patches of dense consolidating right pneumonia. Sizable peripheral blebs and honeycombing in the left mid and base. Prior to transfer they did discuss the case with cardiothoracic surgery combination worker and the patient wasgiven vancomycin and Zosyn. [...] Vitals Signs(Last 24 hrs)__Last Charted Minimum Maximum JOL270(APR 13 05:28)135(APR 13 05:28)135(APR 13:28) DBP78(APR 13:28)78(APR 13 05:28)78(APR 13:) Physical examination: HEENT: No Pallor, No Icterus Cardiac: tachycardia, No murmur Lungs: diffuse crackles in respiratory stress Abdomen: Soft Non tender Musculoskeletal: No joint pains or swelling Extremities: No edema, good pulses Neurological: Alert, no deficits Skin: No rash, no nodules Labs: as mentioned in the HPI. Assessment and plan: Patient presents from [facility] on April 13, 2025 due to [...] MD on 04/13/2025 05:49 AM [id number] History and physical note [facility] History and Physical Date of Admission: patient is being admitted on April 13, 2025 Chief complaint: pneumothorax History of present illness: History was taken from talking with the emergency room physician at [facility] as well as talking with the [...] the patient had a pacemaker placed at [facility]. On Sunday of this past week the patient was found to have pleural effusion and had a thoracentesis. The patient was admitted to rehab at [facility]. Yesterday the patient had episodes of [...] CT chest without contrast showed right loculated [place] pneumothorax of estimated 15% of the right thoracic volume occupied by air. Patches of dense consolidating right pneumonia. Sizable peripheral blebs and honeycombing in the left mid and base. Prior to transfer they did discuss the case with cardiothoracic surgery combination worker and the patient wasgiven vancomycin and Zosyn. [...] Vitals Signs(Last 24 hrs)__Last Charted Minimum Maximum GUD580(APR 13 05:28)135(APR 13:28)135(APR 13:28) DBP78(APR 13:28)78(APR 13:28)78(APR 13:28) Physical examination: HEENT: No Pallor, No Icterus Cardiac: tachycardia, No murmur Lungs: diffuse crackles in respiratory stress Abdomen: Soft Non tender Musculoskeletal: No joint pains or swelling Extremities: No edema, good pulses Neurological: Alert, no deficits Skin: No rash, no nodules Labs: as mentioned in the HPI. Assessment and plan: Patient presents from [facility] on April 13, 2025 due to [...] MD on 04/13/2025 05:49 AM [id number] Discharge summary Author Daniel Brownlee [facility] Note Date/Time April 13, 2025 12 :09am [facility] Medical Records Department [address] [place] [address] Emergency Department Summary 04/12/25 MR#: [id number] Acct: [id number] Name: PEDRO HILLMAN Rep #:[id number] : 1945 80 From: Daniel Brownlee DO [...] complaints himself at this point in time. [facility] Medical History Presence of cardiac pacemaker Peripheral arterial disease Other persistent atrial fibrillation New onset atrial flutter COVID Wears hearing aid in both ears Former smoker Coronary artery disease Peripheral vascular occlusive disease BPH (benign prostatic hyperplasia) Chronic kidney disease, stage 3 Atherosclerosis of coronary artery of [place] heart without angina pectoris Hyperlipidemia Lower extremity [...] s 04/08/25 Unknown Rx OXYGEN - Supplemental ([facility] 04/09/25 Unknown History INFORMATIONAL USE ONLY) Allergy/AdvReac [...] following commands knew that he was at [facility] the year is 2024 Skin: Warm, [...] with a rate of 111 bpm with DC interval of 86. Patient's proBNP elevated 7022. [...] 92.5 H Lymph % (Auto) 2.5 L [place] % (Auto) 4.2 Eos % (Auto) 0.0 [...] left mid zone and base. Reading [facility] Discharge Plan Triage Chief Complaint: Shortness [...] Qty: 60 0RF (DME) OXYGEN - Supplemental ([facility] INFORMATIONAL USE ONLY) Gas See Rx Instructions .ROUTE Patient Comments: 2 lpm at rest, 3 lpm on exertion, 2 lpm at HS DME company: [employer] CM Rx Instructions: As directed metoprolol succinate 25 mg tablet extended release 24 hr 12.5 mg PO BID Qty: 90 3RF Primary Care Provider: Tonio Fajardo Referrals: Tonio Fajardo DO [Primary Care Provider] - Print Language: Jordanian Disposition Disposition: DC/Tx to Another Type of HCF What to do if you have Problems For any increased pain, shortness of breath, bleeding, nausea or vomiting, chestpain, or any unexpected problems, contact your Primary Care Provider. Call [facility] ([phone]) or report to the closest Emergency Room. Call 911 if necessary. 04/13/258 <Electronically signed by Daniel Brownlee DO> Cosigner Signature (if applicable): CC: Dr. Tonio Fajardo DO ~ Signed [facility] Work Phone: 1(578) 534-969708-24-2025 Radiology Diagnostic study [address]24-2025 Radiology Diagnostic study [facility]08-22-2025 History and physical note Author Valdez Olivo [facility] Note Date/Time April 10, 2025 8: 47pm [facility] Medical Records Department [address] [place] [address] History & Physical Exam 04/10/252025 MR#: [id number] Acct: [id number] Name: PEDRO HILLMAN Rep #:[id number] : 1945 80 From: Valdez Olivo MD PCP: Dr. Tonio Fajardo, DO Status:ADM IN Location: [facility] TCU02-1 HPI - General General Date of Admission: 04/10/25 Date of Service: 04/10/25 Chief Complaint: Here for rehabilitation. HPI Narrative PEDRO HILLMAN, is a 80 Male who presents with followin04/05/2025 [facility] ED Hypotension. Worsening productive cough, copd, history [...] given. Insulin/glucose for hyperkalemia 5.8. 04/05/2025 Admit [facility]. Lasix 40mg iv bid, Magnesium, albumin for [...] rehabilitation, strengthening, prior to discharge home alone. [facility] Medical History (Updated 04/10/25 @ 20:[address] Valdez Olivo MD) Presence of cardiac pacemaker Peripheral arterial disease Other persistent atrial fibrillation New onset atrial flutter COVID Wears hearing aid in both ears Former smoker Coronary artery disease Peripheral vascular occlusive disease BPH (benign prostatic hyperplasia) Chronic kidney disease, stage 3 Atherosclerosis of coronary artery of [place] heart without angina pectoris Hyperlipidemia Lower extremity [...] apixaban 5 mg tablet (Eliquis) 2.5 mg (2 x 5 mg) PO BID blood 03/09/25 [...] s 04/08/25 Unknown Rx OXYGEN - Supplemental ([facility] 04/09/25 Unknown History INFORMATIONAL USE ONLY) Allergy/AdvReac [...] Fajardo DO; Dr. Valdez Olivo MD~ Signed [facility] Work Phone: 1(212) 981-627308-22-2025 [facility]08-22-2025 Discharge summary Author Nicola Roman [facility] Note Date/Time April 10, 2025 4: 10pm [facility] Medical Records Department [address] [place] [address] Transfer to [facility] MR#: [id number] Acct: [id number] Name: KADY,PEDRO Nora Rep #:[id number] : 1945 80 From: Nicola Roman MD PCP: Dr. Tonio Fajardo, DO Status:ADM IN Certification of patient admission REQUIRED AT TIME OF ADMISSION. I CERTIFY THAT POST-HOSPITAL ECF SERVICES ARE REQUIRED TO BE GIVEN ON AN IN-PATIENT BASIS BECAUSE OF THE ABOVE NAMED PATIENT'S NEED FOR FPC CARE ON A CONTINUING BASIS FOR THE CONDITION(S) FOR WHICH HE/SHE WAS RECEIVING IN-PATIENT HOSPITAL SERVICES PRIOR TO HIS/HER TRANSFER TO THE ECF. 04/10/25 1610<Electronically signed by Nicola Roman MD> [...] treated with radiation therapy currently followed by [facility] oncology and will start 8. Chronic [...] 2RF No Action (DME) OXYGEN - Supplemental ([facility] INFORMATIONAL USE ONLY) Gas See Rx Instructions [...] Fajardo DO; Dr. Deric Lantigua MD ~ [facility] Work Phone: 1(673) 944-254608-22-2025 Discharge summary Author Nicola Roman [facility] Note Date/Time April 10, 2025 4: 23pm [facility] Medical Records Department [address] [place] [address] Discharge Summary 04/10/25 1610 MR#: [id number] Acct: [id number] Name: PEDRO HILLMAN Rep #:[id number] : 1945 80 From: Nicola Roman MD PCP: Dr. Tonio Fajardo DO Status:ADM IN Location: [place] [address] Providers Date of Admission: 04/05/25 Date of Discharge: 04/10/25 Primary Care Physician: Dr. Tonio Fajardo DO Consultations 04/05/25 20:36 Consult: Nephrology Routine Consulting Provider: Davon Saravia Reason for Consult: CKD; stage IV with Hyperkalemia and AE CHF. EMERGENT Consult: No MD Notified: Yes Date Notified: 04/06/25 Time Notified: 06:58 Method of Notification: Answering Service 04/06/25 07:14 Consult: Onc/Wound/cook specialty Routine Comment: Reason for Consult:: burn R [...] treated with radiation therapy currently followed by [facility] oncology and will start 8. Chronic [...] BID #10 tabs 04/08/25 OXYGEN - Supplemental ([facility] INFORMATIONAL USE ONLY) 04/09/25 Physical Exam Narrative [...] (Auto) 91.6 H, Lymph % (Auto) 1.9L, [place] % (Auto) 5.5, Eos % (Auto) 0.0, [...] consistent with CHF. Reading Location: [facility] Chest CT 04/10/25 07:49 IMPRESSION: Coronary artery calcification (CAC) is is present Moderate right pleural effusion with compressive atelectasis in the right lower lobe as well as airspace disease in the right upper lobe with volume loss. Small left pleural effusion with left basilar atelectasis. Findings suggestive of CHF. Reading Location: [id number] Thoracentesis Ultrasound 04/10/25 09:12 IMPRESSION: Successful diagnostic and therapeutic ultrasound-guided right thoracentesis. Laboratory results pending. Reading Location: [place] [address] D/C Instructions Call your doctor if you observe: Fever of 101 or Higher, Shortness of breath, Fainting spells and Chest pain DC O2, CPAP, BIPAP Needs Home O2 Discharge instructions: Yes Type of respiratory needs?: Oxygen Oxygen frequency: At rest (2) and With Ambulation Oxygen liters per minute during Ambulation: 3 DC home with Oxygen: Yes Home O2 Review: I have reviewed the oxygen testing, [...] 2RF No Action (DME) OXYGEN - Supplemental ([facility] INFORMATIONAL USE ONLY) Gas See Rx Instructions .ROUTE Patient Comments: 2 lpm at rest, 3 lpm on exertion, 2 lpm at HS DME company: [email or web address] [facility] Rx Instructions: As directed Referrals / Follow Up: Carol Sousa [Registered Nurse] - 04/21/25 10:00 am ( FOLLOW UP PACER AND WOUNDCHECK ) Tonio Fajardo DO [Primary Care Provider] - Within 1 Week Disposition Disposition (needs filled in before D/C Order can be placed): Home, Self Care Charges/Coding Visit Charges Inpatient E&M: 01588 Disch Hosp >30min 04/10/25 1623 <Electronically signed by Nicola Roman MD> Cosigner Signature (if applicable): CC: Dr. Nicola Roman MD; Dr. Tonio Fajardo DO~ Signed [facility] Work Phone: 1(861) 531-395408-22-2025 [facility]08-22-2025 [id number] [facility] Discharge instructionsAdditional Instructions Date of Discharge: 04/10/25[facility] Work Phone: 1(254) 421-170408-22-2025 Progress note Author Nicola Roman [facility] Note Date/Time April 10, 2025 9: 18am [facility] Medical Records Department [address] [place] [address] Progress Note - Hospitalist 04/10/25 0750 MR#: [id number] Acct: [id number] Name: PEDRO HILLMAN Rep #:[id number] : 1945 80 From: Nicola Roman MD PCP: Dr. Tonio Fajardo, DO Status:ADM IN Location: [place] [address]- 1 Reason for Visit Chief Complaint: SOB, [...] (Auto) 91.6 H, Lymph % (Auto) 1.9L, [place] % (Auto) 5.5, Eos % (Auto) 0.0, [...] consistent with CHF. Reading Location: [facility] Physical Exam Narrative S GENERAL: dyspneic at [...] treated with radiation therapy currently followed by [facility] and will start 8. Chronic persistent A-fib [...] 52 Minutes Charges/Coding Visit Charges Inpatient E&M: 63402 Subs Hosp L3 04/10/25 0918 <Electronically signed by Nicola Roman MD> Cosigner Signature (if applicable): CC: ~ Signed [facility] Work Phone: 1(147) 164-352308-22-2025 Radiology Diagnostic study [facility]08-21-2025 Radiology Diagnostic study [facility]08-21-2025 Procedure [facility]08-21-2025 Progress note Author Nicola Roman [facility] Note Date/Time April 09, 2025 11 :31am [facility] Medical Records Department [address] [place] [address] Progress Note - Hospitalist 04/09/251124 MR#: [id number] Acct: [id number] Name: PEDRO HILLMAN Rep #:[id number] : 1945 80 From: Nicola Roman MD PCP: Dr. Tonio Fajardo, DO Status:ADM IN Location: [place] [id number]- Reason for Visit Chief Complaint: SOB, Cough [...] (Auto) 91.8 H, Lymph % (Auto) 2.8L, [place] % (Auto) 4.7, Eos % (Auto) 0.0, [...] treated with radiation therapy currently followed by [facility] oncology and will start 8. Chronic [...] 50 Minutes Charges/Coding Visit Charges Inpatient E&M: 90241 Subs Hosp 04/09/25 1131 <Electronically signed by Nicola Roman MD> Cosigner Signature (if applicable): CC: ~ Signed [facility] Work Phone: 1(610) 617-849708-20-2025 Consult note Author Issa Looney [facility] Note Date/Time April 08, 2025 7: 12pm [facility] Medical Records Department [address] [place] [address] Consultation - Cardiology 04/08/25 1906 MR#: [id number] Acct: [id number] Name: PEDRO HILLMAN Rep #:[id number] : 1945 80 From: Issa Looney MD PCP: Dr. Tonio Fajardo, DO Status:ADM IN Location: [place] [address] Assessment & Plan Assessment/Plan (1) Chronic atrial [...] disease: QUALIFIERS: Coronary Disease-Associated Artery/Lesion type: nativeartery [place] vs. transplanted heart: [place] heart Associated angina: without angina Qualified Code(s): I25.10 - Atherosclerotic heart disease of [place] coronary artery without angina pectoris PLAN: He [...] has documented pauses over 8 seconds present. [facility] Medical History Peripheral arterial disease Other persistent atrial fibrillation New onset atrial flutter DIMA Wears hearing aid in both ears Former smoker Coronary artery disease Peripheral vascular occlusive disease BPH (benign prostatic hyperplasia) Chronic kidney disease, stage 3 Atherosclerosis of coronary artery of [place] heart without angina pectoris Hyperlipidemia Lower extremity [...] (Auto) 91.4 H, Lymph % (Auto) 3.5L, [place] % (Auto) 4.5, Eos % (Auto) 0.0, [...] 91.4 H, Lymph % (Auto) 3.5 L, [place] % (Auto) 4.5, Eos % (Auto) 0.0, [...] applicable): CC: Dr. Tonio Fajardo, DO~ Signed [facility] Work Phone: 1(824) 701-398808-20-2025 Consult note Author Renae Sarabia [facility] Note Date/Time April 08, 2025 6: 51pm [facility] Medical Records Department [address] [place] [address] Consultation - Nephrology 04/06/25 1153 MR#: [id number] Acct: [id number] Name: PEDRO HILLMAN Rep #:[id number] : 1945 80 From: Renae ZHONG PCP: Dr. Tonio Fajardo, DO Status:ADM IN Location: [place] [id number]- 1 Assessment & Plan Assessment/Plan (1) DARIUSZ [...] kidney from prior ATN after CABG at [place] March2013 (patient required hemodialysis for short period [...] He he was last seen in our [place] office in April 2021. 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 Baseline creatinine April 2021 was around 1.5 to 1.9 mg/dL. Yesterday in the emergency room creatinine 2.57, today his creatinine is 2.52 mg/dL. Patient denies any recent nausea, vomiting or diarrhea. He does state since feeling unwell appetite has been poor. No NSAIDs. Denies any hematuria, dysuria, frequency, nocturia. [facility] Medical History Peripheral arterial disease Other persistent atrial fibrillation New onset atrial flutter COVID Wears hearing aid in both ears Former smoker Coronary artery disease Peripheral vascular occlusive disease BPH (benign prostatic hyperplasia) Chronic kidney disease, stage 3 Atherosclerosis of coronary artery of [place] heart without angina pectoris Hyperlipidemia Lower extremity [...] (Auto) 79.7 H, Lymph % (Auto) 7.3L, [place] % (Auto) 10.7 H, Eos % (Auto) [...] Clarity Clear, Urine pH 5.0, Ur Specific [place] 1.015, Urine Protein 100 H, Urine Glucose [...] (Auto) 81.9 H, Lymph % (Auto) 6.4L, [place] % (Auto) 10.1 H, Eos % (Auto) [...] - Nasopharyngeal Respiratory Panel (PCR) - Final 08/17/25 17:05 Mucosa - Nose SARS-CoV-2, Influenza & [...] process cannot be reliably excluded. Reading Location: [facility] Chest X-Ray 04/06/25 04:13 IMPRESSION: Unchanged bilateral pleural effusions. Unchanged passive atelectatic airspace disease of the lower lobes. Unremarkable median sternotomy wires. Minimal decrease in pulmonary congestion/infiltrates. Enlarged cardiac silhouette. Reading Location: [place] [address] 04/06/25 1226 <Electronically signed by Renae ZHONG> Cosigner Signature (if applicable): 04/08/25 1851 <Electronically signed by Davon Saravia MD> CC: Dr. Tonio Fajardo, DO~ Signed [facility] Work Phone: 1(335) 726-231408-20-2025 Progress note Author Renae Sarabia [facility] Note Date/Time April 08, 2025 6: 51pm [facility] Medical Records Department [address] [place] [address] Progress Note - Nephrology 04/07/25 1046 MR#: [id number] Acct: [id number] Name: PEDRO HILLMAN Rep #:[id number] : 1945 80 From: Renae BENSONC PCP: Dr. Tonio Fajardo, DO Status:ADM IN Location: [place] [id number]- [id number] Subjective Subjective Sitting in chair. No [...] 92.8 H, Lymph % (Auto) 3.1 L, [place] % (Auto) 2.5, Eos % (Auto) 0.0, [...] 12:19 IMPRESSION: NORMAL RENAL ULTRASOUND. Reading Location: [facility] Physical Exam Narrative Alert and oriented x [...] kidney from prior ATN after CABG at [place] March 2013 (patient required hemodialysis for short [...] 2 L yesterday. 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 Renal ultrasound, normal ultrasound, no hydronephrosis. Urine [...] for hospital follow-up after hospital discharge in [place] office. Assessment and plan reviewed with Dr. Saravia. 04/07/25 1103 <Electronically signed by Renae ZHONG> Cosigner Signature (if applicable): 04/08/25 1851 <Electronically signed by Davon Saravia MD> CC: ~ Signed [facility] Work Phone: 1(377) 174-399308-20-2025 Progress note Author Nicola Roman [facility] Note Date/Time April 08, 2025 3: 41pm [facility] Medical Records Department [address] [place] [address] Progress Note - Hospitalist 04/08/25 0757 MR#: [id number] Acct: [id number] Name: PEDRO HILLMAN Rep #:[id number] : 1945 80 From: Nicola Roman MD PCP: Dr. Tonio Fajardo, DO Status:ADM IN Location: [place] [address] Reason for Visit Chief Complaint: SOB, Cough [...] (Auto) 91.4 H, Lymph % (Auto) 3.5L, [place] % (Auto) 4.5, Eos % (Auto) 0.0, [...] treated with radiation therapy currently followed by [facility] oncology and will start 7. Chronic [...] 35 Minutes Charges/Coding Visit Charges Inpatient E&M: 67340 Subs Hosp L2 04/08/25 1113 <Electronically signed [...] Cosigner Signature (if applicable): cc: ~* Signed [facility] Work Phone: 1(100) 829-188608-20-2025 Discharge summary Author Nicola Roman [facility] Note Date/Time April 08, 2025 1: 45pm [facility] Medical Records Department [address] [place] [address] Discharge Summary 04/08/25 1114 MR#: [id number] Acct: [id number] Name: PEDRO HILLMAN Rep #:[id number] : 1945 80 From: Nicola Roman MD PCP: Dr. Tonio Fajardo, Status:ADM IN Location: [facility] [id number]- 1 Providers Date of Admission: 04/05/25 Date of Discharge: 04/08/25 Primary Care Physician: Dr. Tonio Fajardo, DO Consultations 04/05/25 20:36 Consult: Nephrology Routine Consulting Provider: Davon Saravia Reason for Consult: CKD; stage IV with Hyperkalemia and AE CHF. EMERGENT Consult: No MD Notified: Yes Date Notified: 04/06/25 Time Notified: 06:58 Method of Notification: Answering Service 04/06/25 07:14 Consult: Onc/Wound/cook specialty Routine Comment: Reason for Consult:: burn R [...] treated with radiation therapy currently followed by [facility] oncology and will start 7. Chronic [...] (Auto) 91.4 H, Lymph % (Auto) 3.5L, [place] % (Auto) 4.5, Eos % (Auto) 0.0, [...] Self Care Charges/Coding Visit Charges Inpatient E&M: 78992 Disch Hosp >30min 04/08/25 1345 <Electronically signed by Nicola Roman MD> Cosigner Signature (if applicable): CC: Dr. Nicola Roman MD; Dr. Tonio Fajardo DO~ Signed [facility] Work Phone: 1(788) 665-221608-20-2025 [facility]08-19-2025 Progress note Author Nicola Roman [facility] Note Date/Time April 07, 2025 11 :26am [facility] Medical Records Department [address] [place] [address] Progress Note - Hospitalist 04/07/25 1113 MR#: [id number] Acct: [id number] Name: PEDRO HILLMAN Rep #:[id number] : 1945 80 From: Nicola Roman MD PCP: Dr. Tonio Fajardo, DO Status:ADM IN Location: [place] [address] Reason for Visit Chief Complaint: SOB, Cough [...] Std Deviation 53.1 H, RDW Coeff of Regige 17.1 H, Plt Count 189, MPV 10.4, Immature Gran % (Auto) 1.400 H, Neut % (Auto) 92.8 H, Lymph % (Auto) 3.1 L, [place] % (Auto) 2.5, Eos % (Auto) 0.0, [...] 12:19 IMPRESSION: NORMAL RENAL ULTRASOUND. Reading Location: [facility] Physical Exam Narrative S GENERAL: cooperative, dyspneic [...] treated with radiation therapy currently followed by [facility] oncology and will start 7. Chronic [...] 52 Minutes Charges/Coding Visit Charges Inpatient E&M: 16914 Subs Hosp L3 04/07/25 1126 <Electronically signed by Nicola Roman MD> Cosigner Signature (if applicable): CC: ~ Signed [facility] Work Phone: 1(492) 769-966008-18-2025 Progress note Author Deric Lantigua [facility] Note Date/Time April 06, 2025 4: 53pm [facility] Medical Records Department [address] [place] [address] Progress Note - Hospitalist 04/06/25 0837 MR#: [id number] Acct: [id number] Name: PEDRO HILLMAN Rep #:[id number] : 1945 80 From: Deric Smith PCP: Dr. Tonio Fajardo, DO Status:ADM IN Location: [place] [address] Reason for Visit Chief Complaint: SOB, Cough [...] (Auto) 79.7 H, Lymph % (Auto) 7.3L, [place] % (Auto) 10.7 H, Eos % (Auto) [...] Clarity Clear, Urine pH 5.0, Ur Specific [place] 1.015, Urine Protein 100 H, Urine Glucose [...] (Auto) 81.9 H, Lymph % (Auto) 6.4L, [place] % (Auto) 10.1 H, Eos % (Auto) [...] process cannot be reliably excluded. Reading Location: [facility] Chest X-Ray 04/06/25 04:13 IMPRESSION: Unchanged bilateral pleural effusions. Unchanged passive atelectatic airspace disease of the lower lobes. Unremarkable median sternotomy wires. Minimal decrease in pulmonary congestion/infiltrates. Enlarged cardiac silhouette. Reading Location: [place] [address] Physical Exam Narrative Seen and examined Patient [...] oxygen requirement with increasing productive cough. Patient's kwwqwznd-hp-ioh increased O2 to 4 L. Noleg swelling. [...] moderate TR, moderate DC and mild PI. TSH normal Plan: Patient is started on furosemide 40 mg IV twice daily. Heart failure coremeasures including intake and output, fluid restriction less than 1500 mL, dailyweight monitoring, kidney and electrolytes monitoring. 2. Persistent trial flutter/atrial fib: Currently patient in sinus rhythm. 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 During previous admission [...] (Auto) 79.7 H, Lymph % (Auto) 7.3L, [place] % (Auto) 10.7 H, Eos % (Auto) [...] Clarity Clear, Urine pH 5.0, Ur Specific [place] 1.015, Urine Protein 100 H, Urine Glucose [...] (Auto) 81.9 H, Lymph % (Auto) 6.4L, [place] % (Auto) 10.1 H, Eos % (Auto) [...] 140 H Charges/Coding Visit Charges Inpatient E&M: 75905 Subs Hosp L3 04/06/25 8432 <Electronically signed by Deric Lantigua MD> Cosigner Signature (if applicable): CC: ~ Signed [facility] Work Phone: 1(194) 287-294408-18-2025 Radiology Diagnostic study [facility]08-18-2025 History and physical note Author Nicola Madison [facility] Note Date/Time April 06, 2025 6: 23am [facility] Medical Records Department [address] [place] [address] H&P Exam - Hospitalist 04/05/251917 MR#: [id number] Acct: [id number] Name: PEDRO HILLMAN Rep #:[id number] : 1945 80 From: Nicola Levy DO PCP: Dr. Tonio Fajardo, DO Status:ADM IN Location: [facility] [id number] 1 HPI - General General Date of [...] patient still FULL CODE who presents to [facility] ER complaining of shortness of breath, [...] status expected to extend beyond 2 midnights. [facility] Medical History Peripheral arterial disease Other persistent atrial fibrillation New onset atrial flutter COVID Wears hearing aid in both ears Former smoker Coronary artery disease Peripheral vascular occlusive disease BPH (benign prostatic hyperplasia) Chronic kidney disease, stage 3 Atherosclerosis of coronary artery of [place] heart without angina pectoris Hyperlipidemia Lower extremity [...] (Auto) 79.7 H, Lymph % (Auto) 7.3L, [place] % (Auto) 10.7 H, Eos % (Auto) [...] process cannot be reliably excluded. Reading Location: [id number] Assessment & Plan Assessment/Plan (1) Acute on [...] 75 minutes. Charges/Coding Visit Charges Inpatient E&M: 65515 Init Hosp L3 04/06/25 0623 <Electronically signed by Nicola Lindsey DO> Cosigner Signature (if applicable): CC: Dr. Nicola Lindsey DO; Dr. Tonio Fajardo DO~ Signed [facility] Work Phone: 1(478) 217-816308-18-2025 Radiology Diagnostic study [facility]08-18-2025 Discharge summary Author Ld Hayes [facility] Note Date/Time April 06, 2025 12 :36am [facility] Medical Records Department [address] [place] [address] Emergency Department Summary 04/05/25 MR#: [id number] Acct: [id number] Name: PEDRO HILLMAN Rep #:[id number] : 1945 80 From: Ld Quintero PCP: Dr. Tonio Fajardo DO Status:ADM IN Location: [address] History of Present Illness Chief Complaint: Hypotension Informant: patient and family Narrative Narrative: Presents by EMS from home daughter in law present. Increasing productive cough. Chronic oxygenation of 3 L for COPD history remote history of lung cancer. Kfmnybxf-jf-jpv reports that increase his oxygen to 4 [...] CKD history. He is followed by the [facility]. Reports he was admitted 3 weeks ago approximately had his metoprolol held and placed on diltiazem. Prior similar symptoms: Yes PFSH PFSH Medical History Peripheral arterial disease Other persistent atrial fibrillation New onset atrial flutter COVID Wears hearing aid in both ears Former smoker Coronary artery disease Peripheral vascular occlusive disease BPH (benign prostatic hyperplasia) Chronic kidney disease, stage 3 Atherosclerosis of coronary artery of [place] heart without angina pectoris Hyperlipidemia Lower extremity [...] Physical Exam Const Vital Signs: 04/05/25 16:41 08/17/25 16:48 04/05/25 16:50 Temperature 97.6 F L [...] clinician: Hospitalist This note was generated with Loc[employer] dictation software. It may contain incorrectwords, spelling, [...] 79.7 H Lymph % (Auto) 7.3 L [place] % (Auto) 10.7 H Eos % (Auto) [...] process cannot be reliably excluded. Reading Location: [id number] Discharge Plan Dx/Rx/DC Orders Clinical Impression: CHF exacerbation, Chronic kidney disease, stage 3, Atrial flutter, Chronic anticoagulation, Hyperkalemia Disposition Disposition: Acute Care Hospital [facility] Discharge Date/Time: 04/05/25 20:38 What to do if you have Problems For any increased pain, shortness of breath, bleeding, nausea or vomiting, chestpain, or any unexpected problems, contact your Primary Care Provider. Call [facility] ([phone]) or report to the closest Emergency Room. Call 911 if necessary. 04/06/25 0036 <Electronically signed by Ld Quintero> Cosigner Signature (if applicable): CC: Dr. Tonio Fajardo DO ~ Signed [facility] Work Phone: 1(178) 753-819608-17-2025 [facility]iology [id number] Discharge summary [facility] Medical Records Department [address] [place] [address] Emergency Department Summary 03/15/25 MR#: [id number] Acct: [id number] Name: PEDRO HILLMAN Rep #:[id number] : 1945 80 From: Alex Matias MD [...] similar symptoms: Yes Recent Illness/Hospital[facility]: Yes ([facility] Medical History Other persistent atrial fibrillation New onset atrial flutter COVID Wears hearing aid in both ears Former smoker Coronary artery disease Peripheral vascular occlusive disease BPH (benign prostatic hyperplasia) Chronic kidney disease, stage 3 Atherosclerosis of coronary artery of [place] heart without angina pectoris Hyperlipidemia Lower extremity [...] 4 doses of apixaban, Eliquis Print Language: Jordanian Disposition Disposition: Home, Self Care What to do if you have Problems For any increased pain, shortness of breath, bleeding, nausea or vomiting, chestpain, or any unexpected problems, contact your Primary Care Provider. Call [facility] ([phone]) or report tothe closest Emergency Room. Call 911 if necessary. 03/15/25 6573 Cosigner Signature (if applicable): CC: Dr. Tonio Fajardo, DO ~ Signed [facility]07-27-2025 Discharge summary Author Alex Matias [facility] Note Date/Time March 15, 2025 6:22 pm [facility] Medical Records Department [address] [place] [address] Emergency Department Summary 03/15/25 MR#: [id number] Acct: [id number] Name: PEDRO HILLMAN Rep #:[id number] : 1945 80 From: Alex Matias MD [...] similar symptoms: Yes Recent Illness/Hospitalization: Yes (CHF) [facility] Medical History Other persistent atrial fibrillation New onset atrial flutter COVID Wears hearing aid in both ears Former smoker Coronary artery disease Peripheral vascular occlusive disease BPH (benign prostatic hyperplasia) Chronic kidney disease, stage 3 Atherosclerosis of coronary artery of [place] heart without angina pectoris Hyperlipidemia Lower extremity [...] 4 doses of apixaban, Eliquis Print Language: Jordanian Disposition Disposition: Home, Self Care What to do if you have Problems For any increased pain, shortness of breath, bleeding, nausea or vomiting, chestpain, or any unexpected problems, contact your Primary Care Provider. Call [facility] ([phone]) or report to the closest Emergency Room. Call 911 if necessary. 03/15/25 1822 <Electronically signed by Alex Matias MD> Cosigner Signature (if applicable): CC: Dr. Tonio Fajardo, DO ~ Signed [facility] Work Phone: 1(692) 163-494107-27-2025 Hospital Discharge instructionsAdditional Instructions 1. Hold the next 4 doses of apixaban, Eliquis. 2. Take amoxicillin as prescribed until gone 3. Contact Dr. Vasquez's office in the morning to be seen later this week to have the pack removed.[facility] Work Phone: 1(641) 844-565507-21-2025 Consult note [facility] Medical Records Department [address] [place] [address] Counseling Note - Pharmacy 03/09/25 6497 MR#: [id number] Acct: [id number] Name: PEDRO HILLMAN Rep #:[id number] : 1945 80 From: Mala Sterling PCP: Dr. Tonio Fajardo, Status:ADM IN Y Location: [place] [address] Pharmacy [facility] Counseling Pharmacy Service has performed [...] Signature (if applicable): Date CC: ~ Signed [facility]07-21-2025 Discharge summary Author Deric Lantigua [facility] Note Date/Time March 09, 2025 12:5 2pm [facility] Medical Records Department [address] [place] [address] Discharge Summary 03/09/25 1251 MR#: [id number] Acct: [id number] Name: PEDRO HILLMAN Rep #:[id number] : 1945 80 From: Deric Smith PCP: Dr. Tonio Fajardo, Status:ADM IN Location: [place] [id number]- 1 Providers Date of Admission: 03/04/25 Date of Discharge: 03/09/25 Primary Care Physician: Dr. Tonio Fajardo DO Consultations 03/04/25 21:21 Consult: Cardiology Routine Consulting Provider: Waqar Yu Reason for Consult: AE CHF, a flutter [...] Code(s): I25.10 - Atherosclerotic heart disease of [place] coronary artery without angina pectoris Qualifiers: Coronary Disease-Associated Artery/Lesion type: [place] artery [place] vs. transplanted heart: [place] heart Associated angina: without angina Qualified Code(s): I25.10 - Atherosclerotic heart disease of [place] coronary artery without angina pectoris (3) Chronic anticoagulation: Status: Acute Code(s): Z79.01 - penitentiary (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 of anticoagulants Plan 80-year-old gentleman [...] no significant delta change. ACS ruled out. Technical Services Analyst is consulted. Repeat proBNP is elevated but [...] conduction. Later on irregular variable conduction on wood chopper 03/06: Discussed with the contractor buyer. Metoprolol increased to 25 mg twice daily, [...] pressure in the 90s. Discussed with the contractor buyer. Advised to discontinue to discontinue metoprolol and [...] the CODE STATUS. 03/09: Discussed with the contractor buyer.Patient heart rate controlled in 70s. Yesterday rate was in 80s. Patient tolerated Cardizem 30 mg every 8 hourly therefore discharged on Cardizem CD 120 mg. I called patient's kmprzkgv-th-llu and explained the medication. Technical Services Analyst felt probably does not need even pacemaker. [...] at the right lung base. Reading Location: [facility] Echocardiogram 03/04/25 20:08 Interpretation Summary Moderate [...] in right lung base aeration. [facility] Medications at Discharge Home Medications insulin glargine [...] 03/05/25 14:17 SB (Rec: 03/05/25 14:17 SB [id number]) Nutrition Malnutrition Evidence of Yes Malnutrition Exists [...] (Auto) 72.6 H, Lymph % (Auto) 9.7L, [place] % (Auto) 12.1 H, Eos % (Auto) [...] Provider: Deric Lantigua Primary Care Provider: Tonio Fajrado Consulting Providers: Nicola Lindsey; Paris Tiwari; Susan [...] Self Care Charges/Coding Visit Charges Inpatient E&M: 13270 Disch Hosp >30min 03/09/25 1252 <Electronically signed by Deric Lantigua MD> Cosigner Signature (if applicable): CC: Dr. Tonio Fajardo DO; Dr. Willian Glaser MD; Dr. Deric Lantigua MD~ Signed [facility] Work Phone: 1(758) 401-367107-21-2025 Discharge summary Author Deric Lantigua [facility] Note Date/Time March 09, 2025 12:4 4pm [facility] Medical Records Department [address] [place] [address] Instructions for Home/Discharge Instructions 03/09/25 1031 MR#: [id number] Acct: [id number] Name: PEDRO HILLMAN Rep #:[id number] : 1945 80 From: Deric Smith PCP: [...] - Consulting] - Within 1 Month (For DAIRUSZ on CKD) Tonio Fajardo DO [Primary Care [...] MD; RICKIE Kumari; RICKIE Cummins ~ Signed [facility] Work Phone: 1(722) 316-870507-21-2025 Hospital Discharge instructionsAdditional Instructions Discharge with Claudio catheter. Date of Discharge: 03/09/25[facility] Work Phone: 1(637) 733-464307-21-2025 Discharge summary [facility] Medical Records Department [address] [place] [address] Discharge Summary 03/09/25 1251 MR#: [id number] Acct: [id number] Name: PEDRO HILLMAN Rep #:[id number] : 1945 80 From: Deric Smith PCP: Dr. Tonio Fajardo DO Status:ADM IN Location: [facility] [id number]- 1 Providers Date of Admission: 03/04/25 Date of Discharge: 03/09/25 Primary Care Physician: Dr. Tonio Fajardo, DO Consultations 03/04/25 21:21 Consult: Cardiology Routine Consulting Provider: [facility] Reason for Consult: AE CHF, [...] Code(s): I25.10 - Atherosclerotic heart disease of [place] coronary artery without angina pectoris Qualifiers: Coronary Disease-Associated Artery/Lesion type: [place] artery [place] vs. transplanted heart: nativeheart Associated angina: without angina Qualified Code(s): I25.10 - Atherosclerotic heart disease of [place] coronary artery without angina pectoris (3) Chronic anticoagulation: Status: Acute Code(s): Z79.01 - long term (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 of anticoagulants Plan 80-year-old gentleman [...] no significant delta change. ACS ruled out. Technical Services Analyst is consulted. Repeat proBNP is elevated but [...] conduction. Later on irregular variable conduction on wood chopper 03/06: Discussed with the contractor buyer. Metoprolol increased to 25 mg twice daily, Cardizem 60 mg [id number]. If heart rate controlled, will switch to [...] pressure in the 90s. Discussed with the contractor buyer. Advised to discontinue to discontinue metoprolol and [...] the CODE STATUS. 03/09: Discussed with the contractor buyer.Patient heart rate controlled in 70s. Yesterday rate was in 80s. Patient tolerated Cardizem 30 mg every 8 hourly therefore discharged on Cardizem CD 120 mg. I called patient's hqisvsrd-ea-nne and explained the medication. Technical Services Analyst felt probably does not need even pacemaker. [...] at the right lung base. Reading Location: [facility] Echocardiogram 03/04/25 20:08 Interpretation Summary Moderate [...] in right lung base aeration. Reading Location: [place] [address] Medications at Discharge Home Medications insulin glargine 100 unit/mL subcutaneous solution 30 unit SQ DAILY diabetes 04/01/20 multivitamin (Daily Multi-Vitamin tablet) 1 tab PO [...] 03/05/25 14:17 SB (Rec: 03/05/25 14:17 SB [id number]) Nutrition Malnutrition Evidence of Yes Malnutrition Exists [...] (Auto) 72.6 H, Lymph % (Auto) 9.7L, [place] % (Auto) 12.1 H, Eos % (Auto) [...] Self Care Charges/Coding Visit Charges Inpatient E&M: 18605 Disch Hosp >30min 03/09/25 1252 Cosigner Signature (if applicable): CC: Dr. Tonio Fajardo DO; Dr. Willian Glaser MD; Dr. Deric Lantigua MD~ Signed [facility]07-21-2025 [facility] Discharge summary [facility] Medical Records Department [address] [place] [address] Instructions for Home/Discharge Instructions 03/09/25 1031 MR#: [id number] Acct: [id number] Name: PEDRO HILLMAN Rep #:[id number] : 1945 80 From: Deric Smith PCP: [...] Mitchell; Reinaldo Mclain; Santos Hsu; Iker Rodriguez BARGE ENGINEER; Leslie Arriaga PA; Tadeo Thakkar Discharge Orders/Prescriptions [...] - Leslie Arriaga PA [Med Staff - [facility] Practice Prof] - Within 2 Weeks Disposition Disposition (needs filled in before D/C Order can be placed): Home, Self Care 03/09/25 1244Pmaribel Lantigua MD CC: BARGE ENGINEER-Estevan Rodriguez; Dr. Susan Hawley MD; Dr. Paris Tiwari MD; Dr. Marjorie Green MD; Dr. Nicolette Mcdonald MD; Dr. Martin Vivas MD; Dr. Jose Lai MD; Dr. Issa Looney MD; Dr. Nicola Lindsey DO; Dr. Chago Miller MD; Dr. Tonio Fajardo DO; Dr. Willian Glaser MD; Dr. Orly Mitchell MD;Dr. Santos Hsu MD; Dr. Reinaldo Mclain MD; RICKIE Kumari; RICKIE Cummins ~ Signed [facility]07-21-2025 Progress note Author Willian Glaser [facility] Note Date/Time March 09, 2025 9:53 am [facility] Medical Records Department [address] [place] [address] Progress Note - Cardiology 03/09/25 0943 MR#: [id number] Acct: [id number] Name: PEDRO HILLMAN Rep #:[id number] : 1945 80 From: Willian Glaser MD PCP: Dr. Tonio Fajardo DO Status:ADM IN Location: [place] [id number]- [id number] Subjective Subjective Patient evaluated in a [...] (Auto) 72.6 H, Lymph % (Auto) 9.7L, [place] % (Auto) 12.1 H, Eos % (Auto) [...] 72.6 H, Lymph % (Auto) 9.7 L, [place] % (Auto) 12.1 H, Eos % (Auto) [...] disease: QUALIFIERS: Coronary Disease-Associated Artery/Lesion type: nativeartery [place] vs. transplanted heart: [place] heart Associated angina: without angina Qualified Code(s): I25.10 - Atherosclerotic heart disease of [place] coronary artery without angina pectoris PLAN: Patient carries a history of bypass graft surgery followed in the [facility]. The patient should be reevaluated in 2 to 4 weeks in the [facility] with advanced practitioner. Given the [...] At discharge patient should follow-up with the [facility] advanced practitioner in 2 to 3 weeks. 4. If further assistance is needed please reconsult the [facility]. Charges/Coding Visit Charges Inpatient E&M: 43240 Subs Hosp L3 03/09/25 0953 <Electronically signed by Willian Glaser MD> Cosigner Signature (if applicable): CC: ~ Signed [facility] Work Phone: 1(303) 513-335207-21-2025 Progress note [facility] Medical Records Department [address] [place] [address] Progress Note - Cardiology 03/09/25 0943 MR#: [id number] Acct: [id number] Name: PEDRO HILLMAN Rep #:[id number] : 1945 80 From: Willian Glaser MD PCP: Dr. Tonio Fajardo, DO Status:ADM IN Location: [place] [address] Subjective Subjective Patient evaluated in a seated [...] (Auto) 72.6 H, Lymph % (Auto) 9.7L, [place] % (Auto) 12.1 H, Eos % (Auto) [...] 72.6 H, Lymph % (Auto) 9.7 L, [place] % (Auto) 12.1 H, Eos % (Auto) [...] disease: QUALIFIERS: Coronary Disease-Associated Artery/Lesion type: nativeartery [place] vs. transplanted heart: [place] heart Associated angina: without angina Qualified Code(s): I25.10 - Atherosclerotic heart disease of [place] coronary artery without angina pectoris PLAN: Patient carries a history of bypass graft surgery followed in the [facility]. The patient should be reevaluated in 2 to 4 weeks in the [facility] with advanced practitioner. Given the [...] At discharge patient should follow-up with the [facility] advanced practitioner in 2 to3 weeks. 4. If further assistance is needed please reconsult the [facility]. Charges/Coding Visit Charges Inpatient E&M: 69492 Subs Hosp L3 03/09/25 0953 Cosigner Signature (if applicable): CC: ~ Signed [facility]07-20-2025 Progress note Author Deric Lantigua [facility] Note Date/Time March 08, 2025 1:34 pm [facility] Medical Records Department [address] [place] [address] Progress Note - Hospitalist 03/08/25 0844 MR#: [id number] Acct: [id number] Name: PEDRO HILLMAN Rep #:[id number] : 1945 80 From: Deric Smith PCP: Dr. Tonio Fajardo, DO Status:ADM IN Location: [place] [address] Reason for Visit Chief Complaint: SOB. Objective [...] 03/05/25 14:17 SB (Rec: 03/05/25 14:17 SB [id number]) Nutrition Malnutrition Evidence of Yes Malnutrition Exists [...] also sustained 11 beats of V. tach. waste transportation technician reviewed. Still in A-fib/flutter with bradycardia. [...] hematuria: (8) Atherosclerosis of coronary artery of [place] heart without angina pectoris: QUALIFIERS: Coronary Disease-Associated Artery/Lesion type: nativeartery Qualified Code(s): I25.10 - Atherosclerotic heart disease of [place] coronary artery without angina pectoris (9) Overweight [...] no significant delta change. ACS ruled out. Technical Services Analyst is consulted. Repeat proBNP is elevated but [...] conduction. Later on irregular variable conduction on wood chopper 03/06: Discussed with the contractor buyer. Metoprolol increased to 25 mg twice daily, [...] pressure in the 90s. Discussed with the contractor buyer. Advised to discontinue to discontinue metoprolol and [...] at the right lung base. Reading Location: [facility]--1 Echocardiogram 03/04/25 20:08 Interpretation Summary [...] in right lung base aeration. Reading Location: [place] [address] Charges/Coding Addendum Addendum: Total time of the visit including total time spent in counseling or coordinationof care, (more than 50% of the total time, spent in obtaining medical information from nurses and other ancillary care providers ,explaining to the patient about labs, imaging, diagnosis and management of active complex medical conditions), multiple active cardiac issues, urinary retention discussion with contractor buyer and clinical update given to patient's vstpiqjn-ov-gnc, review of labs and imaging is 35 minutes. Visit Charges Inpatient E&M: 87460 Subs Hosp L3 03/08/25 1040 <Electronically signed by Deric Lantigua MD> Cosigner Signature (if applicable): CC: ~ Signed ADDENDUM by Dr. Deric Lantigua MD on 03/08/25 at 1334 Addendum The patient's son and btggovyh-cs-uso came to visit him. They decided patient to be DNR CC arrest with no intubation CODE STATUS changed. Living will/advanced directive/end of life care: Patient does not have living will or advanced directive. He is next of kin is his son and kaulxhbi-fe-gyc. After discussion of benefits/risks procedures involved with full code, DNR CC arrest and DNR CC, the patient and his znkaklzl-gn-ecn he opted for DNR CC arrest with no intubation. Patient also said that he does not want pacemaker but his zlwrlwsj-gu-jjz and son will discuss with him Patient does want artificial life support including intubation, tube feed, ventilator and/chest compression, central venous catheter, vasopressor and DC shock if needed Total time spent in zfcc-fh-strh encounter in discussion of advanced directive 17 minutes. 03/08/25 1334<Electronically signed by Deric Lantigua MD> Cosigner Signature (if applicable): cc: ~* Signed [facility] Work Phone: 1(954) 712-948507-20-2025 Progress note [facility] Medical Records Department [address] [place] [address] Progress Note - Hospitalist 03/08/25 0844 MR#: [id number] Acct: [id number] Name: PEDRO HILLMAN Rep #:[id number] : 1945 80 From: Deric Smith PCP: Dr. Tonio Fajardo, DO Status:ADM IN Location: [place] [address] Reason for Visit Chief Complaint: SOB. Objective [...] 03/05/25 14:17 SB (Rec: 03/05/25 14:17 SB [id number]) Nutrition Malnutrition Evidence of Yes Malnutrition Exists [...] Patient alsosustained 11 beats of V. tach. waste transportation technician reviewed. Still in A-fib/flutter with bradycardia. [...] hematuria: (8) Atherosclerosis of coronary artery of [place] heart without angina pectoris: QUALIFIERS: Coronary Disease-Associated Artery/Lesion type: nativeartery Qualified Code(s): I25.10 - Atherosclerotic heart disease of [place] coronary artery without angina pectoris (9) Overweight [...] no significant delta change. ACS ruled out. Technical Services Analyst is consulted. Repeat proBNP is elevated but [...] conduction. Later on irregular variable conduction on wood chopper 03/06: Discussed with the contractor buyer. Metoprolol increased to 25 mg twice daily, Cardizem 60 mg [id number]. If heart rate controlled, will switch to [...] pressure in the 90s. Discussed with the contractor buyer. Advised to discontinue to discontinue metoprolol and [...] at the right lung base. Reading Location: [facility]-1 Echocardiogram 03/04/25 20:08 Interpretation Summary [...] in right lung base aeration. Reading Location: [place] [address] Charges/Coding Addendum Addendum: Total time of the visit including total time spent in counseling or coordinationof care, (more than50% of the total time, spent in obtaining medical information from nurses and other ancillary care providers ,explaining to the patient about labs, imaging, diagnosis and management of active complexmedical conditions), multiple active cardiac issues, urinary retention discussion with cardiologistand clinical update given to patient's mhdfqnmv-da-sbe, review of labs and imaging is 35 minutes. Visit Charges Inpatient E&M: 96382 Subs Hosp L3 03/08/25 1040 Cosigner Signature (if applicable): CC: ~ Signed ADDENDUM by Dr. Deric Lantigua MD on 03/08/25 at 1334 Addendum The patient's son and hkaxxsfq-bp-vij came to visit him. They decided patient to be DNR CC arrest with no intubation CODE STATUS changed. Living will/advanced directive/end of life care: Patient does not have living will or advanced directive. He is next of kin is his son and jrkduwlk-lw-ruh. After discussion of benefits/risks procedures involved with full code, DNR CC arrest and DNR CC, the patient and his wvzdnaib-ew-upy he opted for DNR CC arrest with no intubation. Patient also said that he does not want pacemaker but his rcimnxca-sf-xbg and son will discuss with him Patient does want artificial life support including intubation, tube feed, ventilator and/chest compression, central venous catheter, vasopressor and DC shock if needed Total time spent in brfe-eh-nzxk encounter in discussion of advanced directive 17 minutes. 03/08/25 1334 Cosigner Signature (if applicable): cc: ~* Signed [facility]07-20-2025 Progress note Author Marjorie Green [facility] Note Date/Time March 08, 2025 8:51 am [facility] Medical Records Department [address] [place] [address] Progress Note - Cardiology 03/08/25 0848 MR#: [id number] Acct: [id number] Name: PEDRO HILLMAN Rep #:[id number] : 1945 80 From: Marjorie Green MD PCP: Dr. Tonio Fajardo, DO Status:ADM IN Location: [place] [address] Subjective Subjective Denies any complaints. Became bradycardic [...] Cosigner Signature (if applicable): CC: ~ Signed [facility] Work Phone: 1(673) 252-368307-20-2025 Progress note [facility] Medical Records Department [address] [place] [address] Progress Note - Cardiology 03/08/25 0848 MR#: [id number] Acct: [id number] Name: PEDRO HILLMAN Rep #:[id number] : 1945 80 From: Marjorie Green MD PCP: Dr. Tonio Fajardo, DO Status:ADM IN Location: [place] [address] Subjective Subjective Denies any complaints. Became bradycardic [...] Cosigner Signature (if applicable): CC: ~ Signed [facility]07-19-2025 Progress note Author Deric Lantigau [facility] Note Date/Time March 07, 2025 1:51 pm [facility] Medical Records Department [address] [place] [address] Progress Note - Hospitalist 03/07/25 4015 MR#: [id number] Acct: [id number] Name: PEDRO HILLMAN Rep #:[id number] : 1945 80 From: Deric Smith PCP: Dr. Tonio Fajardo, DO Status:ADM IN Location: [place] [address] Reason for Visit Chief Complaint: SOB. Objective [...] 03/05/25 14:17 SB (Rec: 03/05/25 14:17 SB [id number]) Nutrition Malnutrition Evidence of Yes Malnutrition Exists [...] low 108/34 but improved to 129 systolic. waste transportation technician reviewed. Still in A-fib/flutter. Shortness of [...] hematuria: (8) Atherosclerosis of coronary artery of [place] heart without angina pectoris: QUALIFIERS: Coronary Disease-Associated Artery/Lesion type: nativeartery Qualified Code(s): I25.10 - Atherosclerotic heart disease of [place] coronary artery without angina pectoris (9) Overweight [...] no significant delta change. ACS ruled out. Technical Services Analyst is consulted. Repeat proBNP is elevated but [...] conduction. Later on irregular variable conduction on wood chopper 03/06: Discussed with the contractor buyer. Metoprolol increased to 25 mg twice daily, [...] at the right lung base. Reading Location: [facility]--1 Echocardiogram 03/04/25 20:08 Interpretation Summary [...] in right lung base aeration. Reading Location: [place] [address] Charges/Coding Visit Charges Inpatient E&M: 21646 Subs Hosp L2 03/07/25 1351 <Electronically signed by Deric Lantigua MD> Cosigner Signature (if applicable): CC: ~ Signed [facility] Work Phone: 1(365) 377-221707-19-2025 Progress note [facility] Medical Records Department [address] [place] [address] Progress Note - Hospitalist 03/07/25 1342 MR#: [id number] Acct: [id number] Name: PEDRO HILLMAN Rep #:[id number] : 1945 80 From: Deric Smith PCP: Dr. Tonio Fajardo, DO Status:ADM IN Location: [place] [address] Reason for Visit Chief Complaint: SOB. Objective [...] 03/05/25 14:17 SB (Rec: 03/05/25 14:17 SB [id number]) Nutrition Malnutrition Evidence of Yes Malnutrition Exists [...] low 108/34 but improved to 129 systolic. waste transportation technician reviewed. Still in A-fib/flutter. Shortness of [...] hematuria: (8) Atherosclerosis of coronary artery of [place] heart without angina pectoris: QUALIFIERS: Coronary Disease-Associated Artery/Lesion type: nativeartery Qualified Code(s): I25.10 - Atherosclerotic heart disease of [place] coronary artery without angina pectoris (9) Overweight [...] no significant delta change. ACS ruled out. Technical Services Analyst is consulted. Repeat proBNP is elevated but [...] conduction. Later on irregular variable conduction on wood chopper 03/06: Discussed with the contractor buyer. Metoprolol increased to 25 mg twice daily, Cardizem 60 mg [id number]. If heart rate controlled, will switch to [...] at the right lung base. Reading Location: [facility]-1 Echocardiogram 03/04/25 20:08 Interpretation Summary Moderate concentric left ventricular hypertrophy. The LV ejection fraction is 55 %. Stage 1 diastolic dysfunction. The left atrium is severely enlarged. Severe mitral valve annular calcification. Moderate posteriorly directed mitral valve regurgitation. Moderate tricuspid valve regurgitation. Estimated pulmonary artery systolic pressure 42 mmHg. Mild (1+) pulmonic valve insufficiency. The study was technically difficult. Ordering Physician: iNcola Lindsey Referring Physician: SCOTTY ELIZALDE Performed By: Haley Stevens and Student Chest X-Ray 03/05/25 04:30 IMPRESSION: Small interval improvement in right lung base aeration. Reading Location: [place] [address] Charges/Coding Visit Charges Inpatient E&M: 08894 Subs Hosp L2 03/07/25 1358 Cosigner Signature (if applicable): CC: ~ Signed [facility]07-18-2025 Progress note Author Deric Lantigua [facility] Note Date/Time March 06, 2025 3:46 pm [facility] Medical Records Department [address] [place] [address] Progress Note - Hospitalist 03/06/25 1540 MR#: [id number] Acct: [id number] Name: PEDRO HILLMAN Rep #:[id number] : 1945 80 From: Deric Smith PCP: Dr. Tonio Fajardo, DO Status:ADM IN Location: [place] [address] Reason for Visit Chief Complaint: SOB. Objective [...] Intake and Output for Last 24 Hours 0703/05/25 03/06/25 23:59 23:59 23:59 Intake Total 50 / 290 908.00 / 908.00 0 / 0 Output Total 3451 / 3451 1550 / 1550 Balance 50 / 40 -2543.00 / -2543.00 -1550 / -1550 Medical Nutrition Assessment Dietitian: Malnutrition Criteria Met Start: 03/05/25 14:17 Freq: Status: Active Protocol: Document 03/05/25 14:17 SB (Rec: 03/05/25 14:17 SB [id number]) Nutrition Malnutrition Evidence of Yes Malnutrition Exists [...] is improved. Still in A-fib/flutter with heart [id number]. Shortness of breath is better. Did not [...] hematuria: (8) Atherosclerosis of coronary artery of [place] heart without angina pectoris: QUALIFIERS: Coronary Disease-Associated Artery/Lesion type: nativeartery Qualified Code(s): I25.10 - Atherosclerotic heart disease of [place] coronary artery without angina pectoris (9) Overweight [...] no significant delta change. ACS ruled out. Technical Services Analyst is consulted. Repeat proBNP is elevated but [...] conduction. Later on irregular variable conduction on wood chopper 03/06: Discussed with the contractor buyer. Metoprolol increased to 25 mg twice daily, [...] at the right lung base. Reading Location: [facility]-1 Echocardiogram 03/04/25 20:08 Interpretation Summary [...] Lindsey Referring Physician: SCOTTY ELIZALDE Performed By: Fransisca Stevensh and Student Chest X-Ray 03/05/25 04:30 IMPRESSION: Small interval improvement in right lung base aeration. Reading Location: [place] [address] Charges/Coding Visit Charges Inpatient E&M: 54308 Subs Hosp L2 03/06/25 1546 <Electronically signed by Deric Lantigua MD> Cosigner Signature (if applicable): CC: ~ Signed [facility] Work Phone: 1(815) 395-502307-18-2025 Progress note [facility] Medical Records Department [address] [place] [address] Progress Note - Hospitalist 03/06/25 1540 MR#: [id number] Acct: [id number] Name: PEDRO HILLMAN Rep #:[id number] : 1945 80 From: Deric Smith PCP: Dr. Tonio Fajardo, DO Status:ADM IN Location: [place] [address] Reason for Visit Chief Complaint: SOB. Objective [...] 03/05/25 14:17 SB (Rec: 03/05/25 14:17 SB [id number]) Nutrition Malnutrition Evidence of Yes Malnutrition Exists [...] is improved. Still in A-fib/flutter with heart [id number]. Shortness of breath is better. Did not [...] hematuria: (8) Atherosclerosis of coronary artery of [place] heart without angina pectoris: QUALIFIERS: Coronary Disease-Associated Artery/Lesion type: nativeartery Qualified Code(s): I25.10 - Atherosclerotic heart disease of [place] coronary artery without angina pectoris (9) Overweight [...] no significant delta change. ACS ruled out. Technical Services Analyst is consulted. Repeat proBNP is elevated but [...] conduction. Later on irregular variable conduction on wood chopper 03/06: Discussed with the contractor buyer. Metoprolol increased to 25 mg twice daily, Cardizem 60 mg W9ggxepq. If heart rate controlled, will switch to [...] at the right lung base. Reading Location: [facility]-1 Echocardiogram 03/04/25 20:08 Interpretation Summary [...] in right lung base aeration. Reading Location: [place] [address] Charges/Coding Visit Charges Inpatient E&M: 57559 Subs Hosp L2 03/06/25 1546 Cosigner Signature (if applicable): CC: ~ Signed [facility]07-18-2025 Consult note Author Marjorie Green [facility] Note Date/Time March 06, 2025 9:33 am [facility] Medical Records Department [address] [place] [address] Consultation - Cardiology 03/06/2526 MR#: [id number] Acct: [id number] Name: PEDRO HILLMAN Rep #:[id number] : 1945 80 From: Marjorie Green MD PCP: Dr. Tonio Fajardo, DO Status:ADM IN Location: [place] [id number] Assessment & Plan Assessment/Plan (1) Atrial flutter [...] of breath is much improved. [facility] Medical History (Updated 03/06/25 @ 09:[address] Marjorie Green MD) Other persistent atrial fibrillation New onset atrial flutter COVID Wears hearing aid in both ears Former smoker Coronary artery disease Peripheral vascular occlusive disease BPH (benign prostatic hyperplasia) Chronic kidney disease, stage 3 Atherosclerosis of coronary artery of [place] heart without angina pectoris Hyperlipidemia Lower extremity [...] applicable): CC: Dr. Tonio Fajardo DO~ Signed [facility] Work Phone: 1(470) 890-777007-18-2025 Consult note [facility] Medical Records Department [address] [place] [address] Consultation - Cardiology 03/06/25925 MR#: [id number] Acct: [id number] Name: PEDRO HILLMAN Rep #:[id number] : 1945 80 From: Marjorie Green MD PCP: Dr. Tonio Fajardo DO Status:ADM IN Location: [place] [address] 1 Assessment & Plan Assessment/Plan (1) Atrial [...] of breath is much improved. [facility] Medical History (Updated 03/06/25 @ 09:[address] Marjorie Green MD) Other persistent atrial fibrillation New onset atrial flutter COVID Wears hearing aid in both ears Former smoker Coronary artery disease Peripheral vascular occlusive disease BPH (benign prostatic hyperplasia) Chronic kidney disease, stage 3 Atherosclerosis of coronary artery of [place] heart without angina pectoris Hyperlipidemia Lower extremity [...] Cosigner Signature (if applicable): CC: Dr. Tonio Fajadro, DO~ Signed [facility]07-17-2025 Progress note Author Deric Lantigua [facility] Note Date/Time March 05, 2025 3:56 pm [facility] Medical Records Department [address] [place] [address] Progress Note - Hospitalist 03/05/25 0719 MR#: [id number] Acct: [id number] Name: PEDRO HILLMAN Rep #:[id number] : 1945 80 From: Deric Smith PCP: Dr. Tonio Fajardo, DO Status:ADM IN Location: [place] [address] Reason for Visit Chief Complaint: SOB. Objective [...] 78.1 H, Lymph % (Auto) 10.1 L, [place] % (Auto) 9.1, Eos % (Auto) 1.6, [...] Clarity Cloudy, Urine pH 6.5, Ur Specific [place] 1.010, Urine Protein 100 H, Urine Glucose [...] (Auto) 76.4 H, Lymph % (Auto) 9.5L, [place] % (Auto) 11.4 H, Eos % (Auto) [...] at the right lung base. Reading Location: [facility] Chest X-Ray 03/05/25 04:30 IMPRESSION: Small interval improvement in right lung base aeration. Reading Location: [place] [address] Rhythm Strip Rhythm Strip: Atrial flutter Rate: [...] hematuria: (8) Atherosclerosis of coronary artery of [place] heart without angina pectoris: QUALIFIERS: Coronary Disease-Associated Artery/Lesion type: nativeartery Qualified Code(s): I25.10 - Atherosclerotic heart disease of [place] coronary artery without angina pectoris (9) Overweight [...] no significant delta change. ACS ruled out. Technical Services Analyst is consulted. Repeat proBNP is elevated but [...] conduction. Later on irregular variable conduction on wood chopper 3. CKD; stage IIIb with hyperkalemia, present [...] Clarity Cloudy, Urine pH 6.5, Ur Specific [place] 1.010, Urine Protein 100 H, Urine Glucose [...] (Auto) 76.4 H, Lymph % (Auto) 9.5L, [place] % (Auto) 11.4 H, Eos % (Auto) [...] at the right lung base. Reading Location: [facility] Echocardiogram 03/04/25 20:08 Interpretation Summary Moderate [...] in right lung base aeration. Reading Location: [place] [address] Charges/Coding Addendum Addendum: Total time of the [...] imagingis 35 minutes. Visit Charges Inpatient E&M: 19154 Subs Hosp L3 03/05/25 1556 <Electronically signed by Deric Lantigua MD> Cosigner Signature (if applicable): CC: ~ Signed [facility] Work Phone: 1(497) 114-923207-17-2025 Progress note [facility] Medical Records Department [address] [place] [address] Progress Note - Hospitalist 03/05/25 0719 MR#: [id number] Acct: [id number] Name: PEDRO HILLMAN Rep #:[id number] : 1945 80 From: Deric Smith PCP: Dr. Tonio Fajardo, DO Status:ADM IN Location: [place] [address] Reason for Visit Chief Complaint: SOB. Objective [...] 78.1 H, Lymph % (Auto) 10.1 L, [place] % (Auto) 9.1, Eos % (Auto) 1.6, [...] Clarity Cloudy, Urine pH 6.5, Ur Specific [place] 1.010, Urine Protein 100 H, Urine Glucose [...] (Auto) 76.4 H, Lymph % (Auto) 9.5L, [place] % (Auto) 11.4 H, Eos % (Auto) [...] at the right lung base. Reading Location: [facility]-1 Chest X-Ray 03/05/25 04:30 IMPRESSION: Small interval improvement in right lung base aeration. Reading Location: [facility]-2 Rhythm Strip Rhythm Strip: Atrial flutter [...] hematuria: (8) Atherosclerosis of coronary artery of [place] heart without angina pectoris: QUALIFIERS: Coronary Disease-Associated Artery/Lesion type: nativeartery Qualified Code(s): I25.10 - Atherosclerotic heart disease of [place] coronary artery without angina pectoris (9) Overweight [...] no significant delta change. ACS ruled out. Technical Services Analyst is consulted. Repeat proBNP is elevated but [...] conduction. Later on irregular variable conduction on wood chopper 3. CKD; stage IIIb with hyperkalemia, present [...] Clarity Cloudy, Urine pH 6.5, Ur Specific [place] 1.010, Urine Protein 100 H, Urine Glucose [...] (Auto) 76.4 H, Lymph % (Auto) 9.5L, [place] % (Auto) 11.4 H, Eos % (Auto) [...] at the right lung base. Reading Location: [facility]1 Echocardiogram 03/04/25 20:08 Interpretation Summary [...] in right lung base aeration. Reading Location: [place] [address] Charges/Coding Addendum Addendum: Total time of the [...] imagingis 35 minutes. Visit Charges Inpatient E&M: 18340 Subs Hosp L3 03/05/25 1556 Cosigner Signature (if applicable): CC: ~ Signed [facility]07-17-2025 History and physical note Author Nicola Madison [facility] Note Date/Time March 05, 2025 6:22 am [facility] Medical Records Department [address] [place] [address] H&P Exam - Hospitalist 03/04/251921 MR#: [id number] Acct: [id number] Name: PEDRO HILLMAN Rep #:[id number] : 1945 80 From: Nicola Levy DO PCP: Dr. Tonio Fajardo, Status:ADM IN Location: [facility] [id number]- [id number] HPI - General General Date of [...] of COVID-19 and OA who presents to [facility] ER complaining of SOB. Mr. Hillman [...] ~53% with moderate mitral annular calcification and ahke-rt-julspvbo (~1-2+) mitral valve insufficiency with a pulmonary [...] to extend beyond 2 midnights. [facility] Medical History Other persistent atrial fibrillation New onset atrial flutter COVID Wears hearing aid in both ears Former smoker Coronary artery disease Peripheral vascular occlusive disease BPH (benign prostatic hyperplasia) Chronic kidney disease, stage 3 Atherosclerosis of coronary artery of [place] heart without angina pectoris Hyperlipidemia Lower extremity [...] 78.1 H, Lymph % (Auto) 10.1 L, [place] % (Auto) 9.1, Eos % (Auto) 1.6, [...] at the right lung base. Reading Location: [place] [address] Assessment & Plan Assessment/Plan (1) CHF exacerbation: QUALIFIERS: Heart failure type: unspecified Qualified Code(s): I50.9 - Heart failure, unspecified (2) Atrial flutter with rapid ventricular response: (3) Chronic anticoagulation: (4) Elevated troponin: (5) Hyperkalemia: (6) Pleural effusion on right: (7) Acute cystitis with hematuria: (8) Atherosclerosis of coronary artery of [place] heart without angina pectoris: QUALIFIERS: Coronary Disease-Associated Artery/Lesion type: nativeartery Qualified Code(s): I25.10 - Atherosclerotic heart disease of [place] coronary artery without angina pectoris (9) Overweight [...] LVEF. Serialize troponin. Finally, we will consult [facility] see this patient on rounds [...] 75 minutes. Charges/Coding Visit Charges Inpatient E&M: 59272 Init Hosp L3 03/05/25 0622 <Electronically signed by Nicola Lindsey DO> Cosigner Signature (if applicable): CC: Dr. Nicola Lindsey DO; Dr. Tonio Fajardo DO~ Signed [facility] Work Phone: 1(192) 998-134907-17-2025 History and physical note [facility] Medical Records Department [address] [place] [address] H&P Exam - Hospitalist 03/04/251921 MR#: [id number] Acct: [id number] Name: PEDRO HILLMAN Rep #:[id number] : 1945 80 From: Nicola Levy DO PCP: Dr. Tonio Fajardo DO Status:ADM IN Location: [place] [id number]- [id number] [facility] General Date of Admission: 03/04/25 Date of [...] of COVID-19 and OA who [facility] ERcomplaining of SOB. Mr. Hillman reports [...] ~53% with moderate mitral annular calcification and xuvl-ii-ibnqptbh (~1-2+) mitral valve insufficiency with a pulmonary [...] to extend beyond 2 midnights. [facility] Medical History Other persistent atrial fibrillation New onset atrial flutter COVID Wears hearing aid in both ears Former smoker Coronary artery disease Peripheral vascular occlusive disease BPH (benign prostatic hyperplasia) Chronic kidney disease, stage 3 Atherosclerosis of coronary artery of [place] heart without angina pectoris Hyperlipidemia Lower extremity [...] 78.1 H, Lymph % (Auto) 10.1 L, [place] % (Auto) 9.1, Eos % (Auto) 1.6, [...] at the right lung base. Reading Location: [place] [address] Assessment & Plan Assessment/Plan (1) CHF exacerbation: QUALIFIERS: Heart failure type: unspecified Qualified Code(s): I50.9 - Heart failure, unspecified (2) Atrial flutter with rapid ventricular response: (3) Chronic anticoagulation: (4) Elevated troponin: (5) Hyperkalemia: (6) Pleural effusion on right: (7) Acute cystitis with hematuria: (8) Atherosclerosis of coronary artery of [place] heart without angina pectoris: QUALIFIERS: Coronary Disease-Associated Artery/Lesion type: nativeartery Qualified Code(s): I25.10 - Atherosclerotic heart disease of [place] coronary artery without angina pectoris (9) Overweight [...] LVEF. Serialize troponin. Finally, we will consult [facility] see this patient on rounds [...] 75 minutes. Charges/Coding Visit Charges Inpatient E&M: 59061 Init Hosp L3 03/05/25 0622 Cosigner Signature (if applicable): CC: Dr. Nicola Lindsey DO; Dr. Tonio Fajardo DO~ Signed [facility]07-17-2025 Radiology Diagnostic study note [facility] Imaging Services [address] [place] [address] [id number] Chest 1 View (Portable) MR#: [id number] Acct: [id number] Name: PEDRO HILLMAN Rep #: [id number] : 1945 M 80 From: Regi Babb MD PCP: Dr. Tonio Fajardo DO Status: ADM IN Study:Chest 1 View (Portable) Date of Exam: 03/05/25 Exam# [id number] Ordering Dr: Nicola Mukherjee DO PROCEDURE: CHEST [...] in right lung base aeration. Reading Location: [facility]2 CC: Dr. Nicola Lindsey, DO; Dr. Tonio Fajardo DO ~ High Voltage Electrician: Signed [facility]07-16-2025 Evaluation note* Diagnosis Onset Date Resolution [...] 042024 7:57pm Atherosclerosis of coronary artery of [place] heart without angina pectoris chronic March 04, 2025 7:57pm CHF exacerbation chronic February 7:57pm Hypertension chronic March 04, 2 025 7:57pm [facility] Work Phone: 1(823) 414-942607-16-2025 Evaluation note* Diagnosis Onset Date Resolution Status [...] 042024 7:57pm Atherosclerosis of coronary artery of [place] heart without angina pectoris chronic March 04, [...] by pass graft 2012March 17, 2025 12:51pm [employer] Work Phone: 1(817) 640-247707-16-2025 Evaluation note* Diagnosis Onset Date Resolution Status [...] 042024 7:57pm Atherosclerosis of coronary artery of [place] heart without angina pectoris chronic March 04, [...] aortocoronary by pass graft 2012April 05 7:55pm [facility] Work Phone: 1(862) 809-318107-16-2025 Evaluation note* Diagnosis Onset Date Resolution Status Admit Date Acute cystitis with hematuria acute March 04, 2025 7:57pm Atrial flutter with rapid ventricular response acute March 04, 2025 7:57pm Chronic anticoagulation acute 2024 7:57pm Coronary artery disease acute shanda 2024 7:57pm Diabetes acute March 04 [...] 042024 7:57pm Atherosclerosis of coronary artery of [place] heart without angina pectoris chronic March 04, [...] 7:55pm Heart block AV complete acute A 2024 11:14am Presence of cardiac pacemaker acute April 10, 2025 11:14am [facility] Work Phone: 1(294) 960-355107-16-2025 Evaluation note* Diagnosis Onset Date Resolution Status Admit Date Acute cystitis with hematuria acute March 04, 2025 7:57pm Atrial flutter with rapid ventricular response acute March 04, 2025 7:57pm Chronic anticoagulation acute J shanda2024 7:57pm Coronary artery disease acute J shanda [...] 042024 7:57pm Atherosclerosis of coronary artery of [place] heart without angina pectoris chronic March 04, [...] infection) resolv ed April 10, 2025 6:33pm [facility] Work Phone: 1(597) 535-615807-16-2025 Evaluation note* Diagnosis Onset Date Resolution Status [...] 2025 7:57pm Atherosclerosis of coronary artery of [place] heart without angina pectoris chronic March 04, 2025 7:57pm CHF exacerbation chronic February 7:57pm Hypertension chronic March 04 7:57pm Acute on chronic diastolic congestive heart failure resolved March 042024 7:57pm Hyperkalemia resolved March 04 7:57pm Peripheral arterial disease inactive March 04, 2025 7:57pm Other persistent atrial fibrillation acute March 17, 2025 12:51pm Hyperlipidemia chronic March 17, 2025 12:51pm Hypertension chronic Crystal 29[address], 2 025 12:51pm Peripheral vascular occlusiv e disease [...] 10, 2025 6:33pm Debility acute April 10, 025 6:33pm History of lung cancer acute [...] April 17, 2025 6:19pm Tachy-brittany syndrome acute Aug st 2024 6:19pm Type 2 diabetes mellitus wit h hyperglycemia acute April 17 6:19pm COPD (chronic obstructive pulmonary disease) chronic April 17, 2025 6:19pm Hyperlipidemia chronic March 6:19pm [facility] Work Phone: 1(530) 840-420607-16-2025 Discharge summary Author Chris Ochoa [facility] Note Date/Time March 04, 2025 7:26 pm [facility] Medical Records Department [address] [place] [address] Emergency Department Summary 03/04/25 MR#: [id number] Acct: [id number] Name: PEDRO HILLMAN Rep #:[id number] : 1945 80 From: Chris Ochoa MD [...] stage 3 Atherosclerosis of coronary artery of [place] heart without angina pectoris Hyperlipidemia Lower extremity [...] signs. Back nontender. Movingall 4 extremities. 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 Calves nontender without edema or cords. [...] 78.1 H Lymph % (Auto) 10.1 L [place] % (Auto) 9.1 Eos % (Auto) 1.6 [...] at the right lung base. Reading Location: [facility]-1 Chest x-ray, 2 views, AP [...] Chronic anticoagulation Disposition Disposition: [facility] Care [facility] What to do if you have Problems For any increased pain, shortness of breath, bleeding, nausea or vomiting, chestpain, or any unexpected problems, contact your Primary Care Provider. Call [facility] ([phone]) or report to the closest Emergency Room. Call 911 if necessary. 03/04/251925 <Electronically signed by Chris Ochoa MD> Cosigner Signature (if applicable): CC: Dr. Tonio Fajardo DO ~ Signed [facility] Work Phone: 1(765) 446-525307-16-2025 Discharge summary [facility] Medical Records Department [address] [place] [address] Emergency Department Summary 03/04/25 MR#: [id number] Acct: [id number] Name: PEDRO HILLMAN Rep #:[id number] : 1945 80 From: Chris Ochoa MD [...] Prior similar symptoms: Yes Recent Illness/Hospitalization: No [facility] Medical History Other persistent atrial fibrillation New onset atrial flutter DIMA Wears hearing aid in both ears Former smoker Coronary artery disease Peripheral vascular occlusive disease BPH (benign prostatic hyperplasia) Chronic kidney disease, stage 3 Atherosclerosis of coronary artery of [place] heart without angina pectoris Hyperlipidemia Lower extremity [...] signs. Back nontender. Movingall 4 extremities. 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 Calves nontender without edema or cords. [...] 78.1 H Lymph % (Auto) 10.1 L [place] % (Auto) 9.1 Eos % (Auto) 1.6 [...] at the right lung base. Reading Location: [facility] Chest x-ray, 2 views, AP and [...] Chronic anticoagulation Disposition Disposition: [facility] What to do if you have Problems For any increased pain, shortness of breath, bleeding, nausea or vomiting, chestpain, or any unexpected problems, contact your Primary Care Provider. Call [facility] ([phone]) or report tothe closest Emergency Room. Call 911 if necessary. 03/04/251925 Cosigner Signature (if applicable): CC: Dr. Tonio Fajardo DO ~ Signed [facility]07-16-2025 Radiology Diagnostic study note [facility] Imaging Services [address] [place] [address] Chest PA and Lateral MR#: [id number] Acct: [id number] Name: PEDOR HILLMAN Rep #: [id number] : 1945 M 80 From: Tom Flores MD PCP: Dr. Tonio Fajardo DO Status: PRE ER Study:Chest PA and Lateral Date of Exam: 03/04/25 Exam# [id number] Ordering Dr: Camila Ochoa MD PROCEDURE: CHEST [...] at the right lung base. Reading Location: [facility]--1 CC: Dr. Chris Ochoa MD; Dr. Tonio Fajardo DO ~ High Voltage Electrician: Signed [facility]07-16-2025 Discharge summary Author Chris Ochoa [facility] Note Date/Time March 04, 2025 7:26 pm [facility] Medical Records Department [address] [place] [address] Emergency Department Summary 03/04/25 MR#: [id number] Acct: [id number] Name: PEDRO HILLMAN Nora Rep #:[id number] : 1945 80 From: Chris Ochoa MD [...] stage 3 Atherosclerosis of coronary artery of [place] heart without angina pectoris Hyperlipidemia Lower extremity [...] signs. Back nontender. Movingall 4 extremities. 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 Calves nontender without edema or cords. [...] 78.1 H Lymph % (Auto) 10.1 L [place] % (Auto) 9.1 Eos % (Auto) 1.6 [...] at the right lung base. [facility] Chest x-[facility], 2 views, AP and [...] Chronic anticoagulation Disposition Disposition: [facility] What to do if you have Problems For any increased pain, shortness of breath, bleeding, nausea or vomiting, chestpain, or any unexpected problems, contact your Primary Care Provider. Call [facility] ([phone]) or report to the closest Emergency Room. Call 911 if necessary. 03/04/251925 <Electronically signed by Chris Ochoa MD> Cosigner Signature (if applicable): CC: Dr. Tonio Fajardo, ~ Signed [facility] Work Phone: 1(408) 309-433203-20-2025 Evaluation note* Diagnosis Onset Date Resolution Status [...] 2025 7:57pm Atherosclerosis of coronary artery of [place] heart without angina pectoris chronic March 04, 2025 7:57pm CHF exacerbation chronic February 7:57pm [facility] Work Phone: 1(489) 195-181303-13-2025 Radiology Diagnostic study note [facility] Imaging Services [address] [place] [address] CT Chest AND Abd W/ Contrast MR#: [id number] Acct: [id number] Name: PEDRO HILLMAN Rep #: [id number] : 1945 M 79 From: Tom Flores MD PCP: Dr. Tonio Fajardo, DO Status: REG CLI Study:CT Chest AND Abd W/ Contrast Date of Ex am: 10/30/24 Exam# [id number] Ordering Dr: Frantz Zamora MD PROCEDURE: CT [...] use of iterative reconstruction technique). Reading Location: [id number] CC: Dr. Russ Zamora MD; Dr. Tonio Fajardo DO ~ High Voltage Electrician: Signed [facility]02-28-2025 Procedure notey [facility] Pulmonary Services/Neurology [address] [place] [address] MR#: [id number] Acct: [id number] Name: PEDRO HILLMAN Rep #:[id number] : 1945 79 From: Tyrell Uriarte DO Referring Dr: Lorie Mart NP BARGE ENGINEER-C Status: REG CLI Location: PSN Date: Sex: M C PSN 6 Minute Walk Test 6 Minute Walk Test 6 Minute Walk Test: 6 Minute Walk Test PSN:6-Minute Walk Test Start: 10/16/24 13:24 Freq: Status: Active Protocol: RESP.6MINW Document 10/16/24 13:24 [facility] (Rec: 10/16/24 13:34 [facility] [id number]) 6 Minute Walk Test Date Performed 10/16/24 Time Performed 12:30 Height 5 ft 6 in Weight: 174 lb Weight in Pounds 174.[address]: Lorie Mart BARGE ENGINEER Assistive device Walker used: Pre-test Oxygen Delivery [...] Date Dictated: 10/17/24 1004 Date Transcribed: 10/17/241003 High Voltage Electrician: Dr. 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 2024 2:10pm [facility] Work Phone: 1(345) 472-739202-06-2025 Evaluation note* Diagnosis Onset Date Resolution Status Admit Date HAMILTON (dyspnea on exertion) September 25, 2024 12:50pm Other persistent atrial fibrillation September 25 12:50pm Hyperlipidemia chronic September 252024 [...] right lung chronic Marlon h 2024 1:24pm [facility] Work Phone: 1(975) 126-448010-20-2023 Procedure [facility] 04-18-2023 Progress note Author Joaquim Suárez [facility] April 18, 2023 7:12pm Note Date/Time April 18, 2023 3: 56pm [facility] [address] [place] [address] Progress Note - Wound Care 04/18/23 1549 MR#: [id number] Acct: [id number] Name: PEDRO HILLMAN Rep #:[id number] : 1945 78 From: Joaquim Smith PM [...] Date Recorded By Document 04/02/23 11:24 PL [id number] 04/02/23 11:25 PL Document 04/18/23 13:24 [facility] [id number] 04/18/23 13:30 BM 04/02/23 04/18/23 11:24 13:24 - Today's Visit Information Type of service Follow-up Visit Follow-up Visit (Physician/STREET CLEANING EQUIPMENT OPERATOR (Physician/STREET CLEANING EQUIPMENT OPERATOR ) ) Arrival Mode Ambulatory,Cane Ambulatory,Cane [...] Recorded Date Recorded By Document 04/18/23 13:24 [facility] [id number] 04/18/23 13:30 [facility] 04/18/23 13:24 Wound Center Nurse 1 [...] Attached -Granulation Amt Large (67-100%) -Granulation Quality [place] -Slough/Fibrin No -Necrosis Amt None Present (0 [...] Recorded Date Recorded By Document 04/02/23 11:42 [id number] 04/02/23 11:53 Document 04/18/23 14:03 [id number] 04/18/23 14:04 04/02/23 04/18/23 11:42 14:03 Wound [...] Recorded Date Recorded By Document 04/02/23 11:54 [id number] 04/02/23 11:54 Document 04/18/23 14:24 RB [id number] 04/18/23 14:25 RB 04/02/23 04/18/23 11:54 14:24 [...] mellitus with diabetic polyneuropathy QUALIFIERS: Diabetes mellitus exterminator helper insulin use: with exterminator helper use Qualified Code(s): E11.42 - Type 2 diabetes mellitus with diabetic polyneuropathy; Z79.4 - penitentiary (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 of insulin PLAN: Educated the [...] Cosigner Signature (if applicable): CC: ~ Signed [facility] Work Phone: 1(550) 117-145008-20-2023 Progress note Author Bonny Glynn [facility] April 07, 2023 10:44pm Note Date/Time April 02, 2023 12 :35pm [facility] [address] [place] [address] Progress Note - Wound Care 04/02/23 1235 MR#: [id number] Acct: [id number] Name: PEDRO HILLMAN Rep #:[id number] : 1945 78 From: Bonny garcia BARGE ENGINEER BARGE ENGINEER-C PCP: Dr. Tonio Fajardo, DO Status:REG RCR [...] 11:24 04/02/23 11:24 Charges/Coding Procedures Integumentary 111xxx-113xx: 01773 Mihaela subq tissue 20 sq cm/< Debridement [...] Date Recorded By Document 04/02/23 11:24 KIM [id number] 04/02/23 11:25 KIM 04/02/23 11:24 WC - Today's Visit Information Type of service Follow-up Visit (Physician/STREET CLEANING EQUIPMENT OPERATOR ) Arrival Mode Ambulatory,Cane Transfer Assistance [...] Date Recorded By Document 04/02/23 11:42 DORA [id number] 04/02/23 11:53 DORA 04/02/23 11:42 Wound Center [...] Date Recorded By Document 04/02/23 11:54 DORA [id number] 04/02/23 11:54 DORA 04/02/23 11:54 Wound Care [...] that the wound center will have a physician ophthalmologist, will have the patient see him for further evaluation and treatment. Follow up two weeks. Call or come in sooner if develop any questions or concerns. 04/07/236 <Electronically signed by Bonny Glynn NP BARGE ENGINEER-C> Cosigner Signature (if applicable): CC: ~ Signed [facility] Work Phone: 1(757) 907-366107-17-2023 Progress note Author Bonnyparris Glynn [facility] March 05, 2023 1:06pm Note Date/Time March 05, 2023 12:2 9pm [facility] [address] [place] [address] Progress Note - Wound Care 03/05/23 1226 MR#: [id number] Acct: [id number] Name: PEDRO HILLMAN Rep #:[id number] : 1945 78 From: Bonny garcia NP BARGE ENGINEER-C PCP: Dr. Tonio Fajardo, DO Status:REG RCR [...] Method Room Air Charges/Coding Procedures Integumentary 111xxx-113xx: 21379 Mihaela subq tissue 20 sq cm/< Debridement [...] Recorded Date Recorded By Document 02/19/23 13:34 [id number] 02/19/23 13:36 Document 03/05/23 11:26 [id number] 03/05/23 11:29 02/19/23 03/05/23 13:34 11:26 - Today's Visit Information Type of service Follow-up Visit Follow-up Visit (Physician/STREET CLEANING EQUIPMENT OPERATOR (Physician/STREET CLEANING EQUIPMENT OPERATOR ) ) Arrival Mode Ambulatory Ambulatory,Cane [...] Recorded Date Recorded By Document 02/19/23 13:34 [id number] 02/19/23 13:36 Document 03/05/23 11:26 [id number] 03/05/23 11:29 KW 02/19/23 03/05/23 13:34 11:26 [...] Large (67-100%) Small (1-33%) -Granulation Quality [place] -Slough/Fibrin No -Necrosis Amt Small (1-33%) -Structure [...] Recorded Date Recorded By Document 02/19/23 13:37 [id number] 02/19/23 13:39 Document 03/05/23 11:37 [id number] 03/05/23 11:46 02/19/23 03/05/23 13:37 11:37 Wound [...] Date Recorded By Document 02/19/23 13:43 MW [id number] 02/19/23 13:44 MW Document 03/05/23 11:53 [facility] [id number] 03/05/23 11:55 [facility] 02/19/23 03/05/23 13:43 11:53 Wound Care Center [...] if develop any questions or concerns. 03/05/23 1308 <Electronically signed by Bonny Glynn NP BARGE ENGINEER-C> Cosigner Signature (if applicable): CC: ~ Signed [facility] Work Phone: 1(503) 516-850507-03-2023 Progress note Author Bonny Glynn [facility] February 19, 2023 2:23pm Note Date/Time February 19, 2023 2:16p m [facility] [address] [place] [address] Progress Note - Wound Care 02/19/23 1412 MR#: [id number] Acct: [id number] Name: PEDRO HILLMAN Rep #:[id number] : 1945 78 From: Bonny Gillis BARGE ENGINEER BARGE ENGINEER-C PCP: Dr. Tonio Fajardo, DO Status:REG RCR [...] 13:34 02/19/23 13:34 Charges/Coding Procedures Integumentary 111xxx-113xx: 13215 Mihaela subq tissue 20 sq cm/< Debridement [...] Date Recorded By Document 02/19/23 13:34 DORA [id number] 02/19/23 13:36 DORA 02/19/23 13:34 - Today's Visit Information Type of service Follow-up Visit (Physician/STREET CLEANING EQUIPMENT OPERATOR ) Arrival Mode Ambulatory Patient Requires [...] 0-10 Numeric Is Patient Pain Free? Yes [facility] Nurse 1 - General Ulcer Measurement Start: 02/19/23 13:34 Freq: Status: Active Protocol: Activity Type Activity Date Activity User E-sign Co-sign Detail Recorded Client Recorded Date Recorded By Document 02/19/23 13:34 DORA [id number] 02/19/23 13:36 02/19/23 13:34 Wound Center Nurse [...] Recorded Date Recorded By Document 02/19/23 13:37 [id number] 02/19/23 13:39 02/19/23 13:37 Wound Center Nurse [...] Date Recorded By Document 02/19/23 13:43 MW [id number] 02/19/23 13:44 MW 02/19/23 13:43 Wound Care [...] 1423 <Electronically signed by Bonny Glynn NP BARGE ENGINEER-C> Cosigner Signature (if applicable): CC: ~ Signed [facility] Work Phone: 1(676) 331-122306-19-2023 Progress note Author Bonny Glynn [facility] February 05, 2023 2:37pm Note Date/Time February 05, 2023 1:59 pm [facility] [address] [place] [address] Progress Note - Wound Care 02/05/23 1359 MR#: [id number] Acct: [id number] Name: PEDRO HILLMAN Rep #:[id number] : 1945 78 From: Bonny garcia NP BARGE ENGINEER-C PCP: Dr. Tonio Fajardo, DO Status:REG RCR Location: History of Present Illness Date of Service: 02/05/23 Chief Complaint: right medial foot ulcer History of Wound: This 78-year-old male returns to the wound healing clinic for reoccurrence of a right medial foot ulcer. Wound care has been Moistened [place] covered with [place] SAP dressing. Patient diabetic neuropathic. Patient dealing [...] Method Room Air Charges/Coding Procedures Integumentary 111xxx-113xx: 76893 Mihaela subq tissue 20 sq cm/< Debridement [...] Date Recorded By Document 01/22/23 13:45 DL [id number] 01/22/23 13:48 DL Document 02/05/23 13:10 [facility] [id number] 02/05/23 13:15 [facility] 01/22/23 02/05/23 13:45 13:10 - Today's Visit Information Type of service Follow-up Visit Follow-up Visit (Physician/STREET CLEANING EQUIPMENT OPERATOR (Physician/STREET CLEANING EQUIPMENT OPERATOR ) ) Arrival Mode Ambulatory Ambulatory,Cane [...] Date Recorded By Document 01/22/23 13:45 DL [id number] 01/22/23 13:48 DL Document 02/05/23 13:10 [facility] [id number] 02/05/23 13:15 [facility] 01/22/23 02/05/23 13:45 13:10 Wound Center [...] Present (0 Large (67-100%) %) -Granulation Quality [place] -Slough/Fibrin Yes -Necrosis Amt Small (1-33%) Small [...] Date Recorded By Document 01/22/23 14:22 DORA [id number] 01/22/23 14:23 01/22/23 14:22 Wound Center Nurse [...] Date Recorded By Document 01/22/23 14:30 DL [id number] 01/22/23 14:31 DL Document 02/05/23 13:49 [facility] [id number] 02/05/23 13:49 [facility] 01/22/23 02/05/23 14:30 13:49 Wound Care [...] 1437 <Electronically signed by Bonny Glynn NP BARGE ENGINEER-C> Cosigner Signature (if applicable): CC: ~ Signed [facility] Work Phone: 1(339) 519-544606-05-2023 Progress note Author Bonny Glynn [facility] January 22, 2023 3:47pm Note Date/Time January 22, 2023 3:31p m [facility] [address] [place] [address] Progress Note - Wound Care 01/22/23 1529 MR#: [id number] Acct: [id number] Name: PEDRO HILLMAN Rep #:[id number] : 1945 78 From: Bonny garcia BARGE ENGINEER BARGE ENGINEER-C PCP: Dr. Tonio Fajardo, DO Status:REG RCR Location: History of Present Illness Date of Service: 01/22/23 Chief Complaint: right medial foot ulcer History of Wound: This 78-year-old male returns to the wound healing clinic for reoccurrence of a right medial foot ulcer. Wound care has been Moistened Cass covered with Inkster SAP dressing. Patient diabetic neuropathic. Patient dealing [...] 13:45 01/22/23 13:45 Charges/Coding Procedures Integumentary 111xxx-113xx: 43660 Mihaela subq tissue 20 sq cm/< Debridement [...] Start: 01/22/23 13:42 Freq: Status: Active Protocol: WC.LOWEXT Activity Type Activity Date Activity User E-sign Co-sign Detail Recorded Client Recorded Date Recorded By Document 01/22/23 13:45 ORESTES [id number] 01/22/23 13:48 01/22/23 13:45 - Today's Visit Information Type of service Follow-up Visit (Physician/STREET CLEANING EQUIPMENT OPERATOR ) Arrival Mode Ambulatory Transfer Assistance [...] Recorded Date Recorded By Document 01/22/23 13:45 ORESTES [id number] 01/22/23 13:48 01/22/23 13:45 Wound Center Nurse 1 #9 [...] Recorded Date Recorded By Document 01/22/23 14:22 [id number] 01/22/23 14:23 01/22/23 14:22 Wound Center Nurse [...] Date Recorded By Document 01/22/23 14:30 DL [id number] 01/22/23 14:31 DL 01/22/23 14:30 Wound Care [...] 1547 <Electronically signed by Bonny Glynn NP BARGE ENGINEER-C> Cosigner Signature (if applicable): CC: ~ Signed [facility] Work Phone: 1(222) 218-765605-22-2023 Progress note Author Bonny Glynn [facility] January 08, 2023 2:17pm Note Date/Time January 08, 2023 2:10p m [facility] [address] [place] [address] Progress Note - Wound Care 01/08/23 1407 MR#: [id number] Acct: [id number] Name: PEDRO HILLMAN Rep #:[id number] : 1945 77 From: Bonny garcia NP BARGE ENGINEER-C PCP: Dr. Tonio Fajardo, DO Status:REG RCR Location: History of Present Illness Date of Service: 01/08/23 Chief Complaint: right medial foot ulcer History of Wound: This 77-year-old male returns to the wound healing clinic for reoccurrence of a right medial foot ulcer. Wound care has been Moistened Cass covered with Inkster SAP dressing. Patient diabetic neuropathic. Patient dealing [...] 14:53 01/08/23 13:37 Charges/Coding Procedures Integumentary 111xxx-113xx: 51525 Mihaela subq tissue 20 sq cm/< Debridement [...] Date Recorded By Document 12/18/22 13:20 PL [id number] 12/18/22 13:27 PL Document 12/25/22 14:53 [id number] 12/25/22 14:54 Document 01/08/23 13:37 [place] [id number] 01/08/23 13:39 [place] 12/18/22 12/25/22 01/08/23 13:20 14:53 13:37 - Today's Visit Information Type of service Follow-up Visit Follow-up Visit Follow-up Visit (Physician/STREET CLEANING EQUIPMENT OPERATOR (Physician/STREET CLEANING EQUIPMENT OPERATOR (Physician/STREET CLEANING EQUIPMENT OPERATOR ) ) ) Arrival Mode Ambulatory [...] Date Recorded By Document 12/18/22 13:20 PL [id number] 12/18/22 13:27 PL Document 12/25/22 14:53 [id number] 12/25/22 14:54 Document 01/08/23 13:37 [place] [id number] 01/08/23 13:39 [place] 12/18/22 12/25/22 01/08/23 13:20 [...] (34-66%) Small (1-33%) Medium (34-66%) -Granulation Quality [place] Pale -Slough/Fibrin No Yes Yes -Necrosis Amt [...] Recorded Date Recorded By Document 12/18/22 13:51 [id number] 12/18/22 13:53 Document 12/25/22 15:00 [id number] 12/25/22 15:10 Document 01/08/23 14:01 [id number] 01/08/23 14:02 12/18/22 12/25/22 01/08/23 13:51 15:00 [...] Date Recorded By Document 12/18/22 14:07 PL [id number] 12/18/22 14:07 Document 12/25/22 15:20 DL [id number] 12/25/22 15:20 DL 12/18/22 12/25/22 14:07 15:20 [...] 1417 <Electronically signed by Bonny Glynn NP BARGE ENGINEER-C> Cosigner Signature (if applicable): CC: ~ Signed [facility] Work Phone: 1(480) 265-905905-14-[address] Ochoa [facility] December 31, 2022 12:58am Note Date/Time December 30, 2022 11:08 pm [facility] Medical Records Department [address] [place] [address] Emergency Department Summary 12/30/22 MR#: [id number] Acct: [id number] Name: PEDRO HILLMAN Rep #:[id number] : 1945 77 From: Chris Ochoa MD [...] History Anemia Atherosclerosis of coronary artery of [place] heart without angina pectoris BPH (benign prostatic [...] extremities. Nontender. No edema. No cellulitis. 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 Normal dorsi plantarflexion. Neurologically is awake [...] 83.3 H Lymph % (Auto) 6.4 L [place] % (Auto) 9.1 Eos % (Auto) 0.2 [...] Color Urine Clarity Urine pH Ur Specific [place] Urine Protein Urine Glucose (UA) Urine Ketones Urine Occult Blood Urine Nitrite Urine Bilirubin Urine Urobilinogen Ur Leukocyte Esterase Urine RBC Urine WBC Ur Squamous Epith Cells Urine Bacteria Urine Mucus 12/30/22 12/30/22 22:50 23:59 WBC RBC Hgb Hct MCV MCH MCHC RDW Std Deviation RDW Coeff of Reggie Plt Count MPV Immature Gran % (Auto) Neut % (Auto) Lymph % (Auto) [place] % (Auto) Eos % (Auto) Baso % [...] Clarity Clear Urine pH 7.0 Ur Specific [place] 1.005 Urine Protein 100 H Urine Glucose [...] EDT Reading Location ID and State: [facility] / [place] Tel , Service support , [...] your Primary Care Provider. Call [facility] ([phone]) or report to the closest Emergency Room. Call 911 if necessary. 12/31/22 0058 <Electronically signed by Chris Ochoa MD> Cosigner Signature (if applicable): CC: Dr. Tonio Fajardo, DO ~ Signed [facility] Work Phone: 1(207) 111-786205-08-2023 Progress note Author Bonny Glynn [facility] December 25, 2022 3:36pm Note Date/Time December 25, 2022 3:36pm [facility] [address] [place] [address] Progress Note - Wound Care 12/25/22 1531 MR#: [id number] Acct: [id number] Name: PEDRO HILLMAN Rep #:[id number] : 1945 77 From: Bonny garcia BARGE ENGINEER BARGE ENGINEER-C PCP: Dr. Tonio Fajardo, Status:REG RCR Location: History of Present Illness Date of Service: 12/25/22 Chief Complaint: right medial foot ulcer History of Wound: This 77-year-old male returns to the wound healing clinic for reoccurrence of a right medial foot ulcer. Wound care has been Moistened Cass covered with Inkster SAP dressing. Patient diabetic neuropathic. Patient dealing [...] 14:53 12/25/22 14:53 Charges/Coding Procedures Integumentary 111xxx-113xx: 16977 Mihaela subq tissue 20 sq cm/< Debridement [...] Date Recorded By Document 12/18/22 13:20 KIM [id number] 12/18/22 13:27 Document 12/25/22 14:53 [id number] 12/25/22 14:54 12/18/22 12/25/22 13:20 14:53 - Today's Visit Information Type of service Follow-up Visit Follow-up Visit (Physician/STREET CLEANING EQUIPMENT OPERATOR (Physician/STREET CLEANING EQUIPMENT OPERATOR ) ) Arrival Mode Ambulatory Ambulatory [...] Date Recorded By Document 12/18/22 13:20 KIM [id number] 12/18/22 13:27 Document 12/25/22 14:53 [id number] 12/25/22 14:54 12/18/22 12/25/22 13:20 14:53 Wound [...] Amt Medium (34-66%) Small (1-33%) -Granulation Quality [place] -Slough/Fibrin No Yes -Necrosis Amt Medium (34-66%) [...] Recorded Date Recorded By Document 12/18/22 13:51 [id number] 12/18/22 13:53 Document 12/25/22 15:00 [id number] 12/25/22 15:10 12/18/22 12/25/22 13:51 15:00 Wound [...] Date Recorded By Document 12/18/22 14:07 PL [id number] 12/18/22 14:07 PL Document 12/25/22 15:20 DL [id number] 12/25/22 15:20 DL 12/18/22 12/25/22 14:07 15:20 [...] 1536 <Electronically signed by Bonny Glynn NP BARGE ENGINEER-C> Cosigner Signature (if applicable): CC: ~ Signed [facility] Work Phone: 1(812) 323-213105-01-2023 Progress note Author Bonnyparris Glynn [facility] December 18, 2022 2:23pm Note Date/Time December 18, 2022 2:23pm [facility] [address] [place] [address] Progress Note - Wound Care 12/18/22 1419 MR#: [id number] Acct: [id number] Name: PEDRO HILLMAN Rep #:[id number] : 1945 77 From: Bonny garcia NP BARGE ENGINEER-C PCP: Dr. Tonio Fajardo, DO Status:REG RCR Location: History of Present Illness Date of Service: 12/18/22 Chief Complaint: right medial foot ulcer History of Wound: This 77-year-old male returns to the wound healing clinic for reoccurrence of a right medial foot ulcer. Wound care has been Moistened Cass covered with Inkster SAP dressing. Patient diabetic neuropathic. Patient dealing [...] 13:20 12/18/22 13:20 Charges/Coding Procedures Integumentary 111xxx-113xx: 86674 Mihaela subq tissue 20 sq cm/< Debridement [...] Date Recorded By Document 12/18/22 13:20 KIM [id number] 12/18/22 13:27 KIM 12/18/22 13:20 - Today's Visit Information Type of service Follow-up Visit (Physician/STREET CLEANING EQUIPMENT OPERATOR ) Arrival Mode Ambulatory Transfer Assistance [...] Date Recorded By Document 12/18/22 13:20 PL [id number] 12/18/22 13:27 PL 12/18/22 13:20 Wound Center [...] Serosanguineous -Granulation Amt Medium (34-66%) -Granulation Quality [place] -Slough/Fibrin No -Necrosis Amt Medium (34-66%) -Necrotic [...] Date Recorded By Document 12/18/22 13:51 DORA [id number] 12/18/22 13:53 DORA 12/18/22 13:51 Wound Center [...] Date Recorded By Document 12/18/22 14:07 PL [id number] 12/18/22 14:07 PL 12/18/22 14:07 Wound Care [...] 1423 <Electronically signed by Bonny Glynn NP BARGE ENGINEER-C> Cosigner Signature (if applicable): CC: ~ Signed [facility] Work Phone: 1(979) [phone] Progress note Author Bonnyparris Glynn [facility] December 14, 2022 2:56pm Note Date/Time December 11, 2022 3:2 7pm [facility] [address] [place] [address] Progress Note - Wound Care 12/11/22 1527 MR#: [id number] Acct: [id number] Name: PEDRO HILLMAN Rep #:[id number] : 1945 77 From: Bonny garcia NP BARGE ENGINEER-C PCP: Dr. Tonio Fajardo, DO Status:REG RCR Location: History of Present Illness Date of Service: 12/11/22 Chief Complaint: right medial foot ulcer History of Wound: This 77-year-old male returns to the wound healing clinic for reoccurrence of a right medial foot ulcer. Wound care has been Moistened Cass covered with Inkster SAP dressing. Patient diabetic neuropathic. Patient dealing [...] Method Room Air Charges/Coding Procedures Integumentary 111xxx-113xx: 44536 Mihaela subq tissue 20 sq cm/< Debridement [...] Date Recorded By Document 11/20/22 14:43 DL [id number] 11/20/22 14:49 DL Document 11/27/22 14:25 [facility] [id number] 11/27/22 14:27 [facility] Document 12/06/22 11:35 DL [id number] 12/06/22 11:39 DL Document 12/11/22 13:12 [facility] [id number] 12/11/22 13:21 [facility] 11/20/22 11/27/22 12/06/22 14:43 14:25 11:35 - Today's Visit Information Type of service Follow-up Visit Follow-up Visit (Physician/STREET CLEANING EQUIPMENT OPERATOR (Physician/STREET CLEANING EQUIPMENT OPERATOR ) ) Arrival Mode Ambulatory,Cane Ambulatory [...] Visit Information Type of service Follow-up Visit (Physician/STREET CLEANING EQUIPMENT OPERATOR ) Arrival Mode Ambulatory,Cane Transfer Assistance [...] Date Recorded By Document 11/20/22 14:43 DL [id number] 11/20/22 14:49 DL Document 11/27/22 14:25 [facility] [id number] 11/27/22 14:27 BMF Document 12/06/22 11:35 DL [id number] 12/06/22 11:39 DL Document 12/11/22 13:12 [facility] [id number] 12/11/22 13:21 BMF 11/20/22 11/27/22 12/06/22 14:43 [...] Amt Small (1-33%) Small (1-33%) -Granulation Quality [place] Pale -Slough/Fibrin -Necrosis Amt Small (1-33%) Small [...] Recorded Client Recorded Date Recorded By Document 04/03/23 15:00 [id number] 11/20/22 15:09 JF Edit Result 11/20/22 15:00 JF (1) [id number] 11/20/22 15:18 JF Edit Result 11/20/22 15:00 JF (2) [id number] 11/20/22 15:20 Document 11/27/22 14:50 [id number] 11/27/22 15:02 Document 12/06/22 11:46 [id number] 12/06/22 11:57 Document 12/11/22 13:30 [id number] 12/11/22 13:33 (1) #9 Right Inferior Hallux [...] => 08/20/27 - Product Lot Number => [id number] - Percent Used => 100 - Lot number of Saline Used => [id number] 11/20/22 11/27/22 12/06/22 15:00 14:50 11:46 Wound [...] Date 08/20/27 08/20/27 09/20/27 -Product Lot Number [id number] -Percent Used 100 100 100 -Lot number of Saline Used [id number] -Bleeding Controlled with Pressure Pressure Pressure -Treatment [...] Date Recorded By Document 11/20/22 15:35 DL [id number] 11/20/22 15:36 Document 11/27/22 15:02 [id number] 11/27/22 15:03 Document 12/06/22 11:57 [id number] 12/06/22 11:58 Document 12/11/22 13:57 DL [id number] 12/11/22 13:58 DL 11/20/22 11/27/22 12/06/22 15:35 [...] 1456 <Electronically signed by Bonny Glynn NP BARGE ENGINEER-C> Cosigner Signature (if applicable): CC: ~ Signed [facility] Work Phone: 1(781) 203-575904-19-2023 Progress note Author Bonny Glynn [facility] December 06, 2022 12:09pm Note Date/Time December 06, 2022 12: 09pm [facility] [address] [place] [address] Progress Note - Wound Care 12/06/22 1205 MR#: [id number] Acct: [id number] Name: PEDRO HILLMAN Rep #:[id number] : 1945 77 From: Bonny garcia NP BARGE ENGINEER-C PCP: Dr. Tonio Fajardo, DO Status:REG RCR Location: History of Present Illness Date of Service: 12/06/22 Chief Complaint: right medial foot ulcer History of Wound: This 77-year-old male returns to the wound healing clinic for reoccurrence of a right medial foot ulcer. Wound care has been Moistened Cass covered with Inkster SAP dressing. Patient diabetic neuropathic. Patient dealing [...] 11:35 12/06/22 11:35 Charges/Coding Procedures Integumentary 150xxx-152xx: 16357 Skin sub graft face/nk/hf/g Debridement Note Debridement [...] Start: 11/20/22 14:43 Freq: Status: Active Protocol: URBANsougouTyler Activity Type Activity Date Activity User E-sign Co-sign Detail Recorded Client Recorded Date Recorded By Document 11/20/22 14:43 DL [id number] 11/20/22 14:49 DL Document 11/27/22 14:25 [facility] [id number] 11/27/22 14:27 BMF Document 12/06/22 11:35 DL [id number] 12/06/22 11:39 DL 11/20/22 11/27/22 12/06/22 14:43 14:25 11:35 - Today's Visit Information Type of service Follow-up Visit Follow-up Visit (Physician/STREET CLEANING EQUIPMENT OPERATOR (Physician/STREET CLEANING EQUIPMENT OPERATOR ) ) Arrival Mode Ambulatory,Cane Ambulatory [...] Date Recorded By Document 11/20/22 14:43 DL [id number] 11/20/22 14:49 DL Document 11/27/22 14:25 [facility] [id number] 11/27/22 14:27 [facility] Document 12/06/22 11:35 DL [id number] 12/06/22 11:39 DL 11/20/22 11/27/22 12/06/22 14:43 [...] Amt Small (1-33%) Small (1-33%) -Granulation Quality [place] Pale -Necrosis Amt Small (1-33%) Small (1-33%) [...] Recorded Date Recorded By Document 11/20/22 15:00 [id number] 11/20/22 15:09 JF Edit Result 11/20/22 15:00 JF (1) [id number] 11/20/22 15:18 JF Edit Result 11/20/22 15:00 JF (2) [id number] 11/20/22 15:20 JF Document 11/27/22 14:50 JF [id number] 11/27/22 15:02 JF Document 12/06/22 11:46 [id number] 12/06/22 11:57 JF (1) #9 Right Inferior [...] => 08/20/27 - Product Lot Number => [id number] - Percent Used => 100 - Lot number of Saline Used => [id number] 11/20/22 11/27/22 12/06/22 15:00 14:50 11:46 Wound [...] Date 08/20/27 08/20/27 09/20/27 -Product Lot Number [id number] 015 -Percent Used 100 100 100 -Lot number of Saline Used [id number] -Bleeding Controlled with Pressure Pressure Pressure -Treatment [...] Date Recorded By Document 11/20/22 15:35 DL [id number] 11/20/22 15:36 DL Document 11/27/22 15:02 JF [id number] 11/27/22 15:03 JF Document 12/06/22 11:57 [id number] 12/06/22 11:58 11/20/22 11/27/22 12/06/22 15:35 15:02 [...] if develop any questions or concerns. 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 Tonio Fajardo, DO Status:REG RCR Location: History of Present Illness Date of Service: 11/27/22 Chief Complaint: right medial foot ulcer History of Wound: This 77-year-old male returns to the wound healing clinic for reoccurrence of a right medial foot ulcer. Wound care has been Moistened Cass covered with Inkster SAP dressing. Patient diabetic neuropathic. Patient dealing [...] 14:43 11/27/22 14:25 Charges/Coding Procedures Integumentary 150xxx-152xx: 35915 Skin sub graft face/nk/hf/g Debridement Note Debridement [...] Start: 11/20/22 14:43 Freq: Status: Active Protocol: .LOWEXT Activity Type Activity Date Activity User E-sign Co-sign Detail Recorded Client Recorded Date Recorded By Document 11/20/22 14:43 DL [id number] 11/20/22 14:49 DL Document 11/27/22 14:25 BMF [id number] 11/27/22 14:27 [facility] 11/20/22 11/27/22 14:43 14:25 - Today's Visit Information Type of service Follow-up Visit Follow-up Visit (Physician/STREET CLEANING EQUIPMENT OPERATOR (Physician/STREET CLEANING EQUIPMENT OPERATOR ) ) Arrival Mode Ambulatory,Cane Ambulatory [...] Date Recorded By Document 11/20/22 14:43 DL [id number] 11/20/22 14:49 DL Document 11/27/22 14:25 [facility] [id number] 11/27/22 14:27 [facility] 11/20/22 11/27/22 14:43 14:25 Wound Center [...] Thickened -Granulation Amt Small (1-33%) -Granulation Quality [place] -Necrosis Amt Small (1-33%) -Necrotic Tissue Type [...] Recorded Date Recorded By Document 11/20/22 15:00 [id number] 11/20/22 15:09 Edit Result 11/20/22 15:00 JF (1) [id number] 11/20/22 15:18 JF Edit Result 11/20/22 15:00 JF (2) [id number] 11/20/22 15:20 JF Document 11/27/22 14:50 [id number] 11/27/22 15:02 JF (1) #9 Right Inferior [...] => 08/20/27 - Product Lot Number => [id number] - Percent Used => 100 - Lot number of Saline Used => [id number] 11/20/22 11/27/22 15:00 14:50 Wound Center Nurse [...] -Expiration Date 08/20/27 08/20/27 -Product Lot Number [id number] -Percent Used 100 100 -Lot number of Saline Used [id number] -Bleeding Controlled with Pressure Pressure -Treatment Response [...] Date Recorded By Document 11/20/22 15:35 DL [id number] 11/20/22 15:36 DL Document 11/27/22 15:02 JF [id number] 11/27/22 15:03 JF 11/20/22 11/27/22 15:35 15:02 [...] 1724 <Electronically signed by Bonny Glynn NP BARGE ENGINEER-C> Cosigner Signature (if applicable): CC: ~ Signed [facility] Work Phone: 1(663) 606-582804-10-2023 Progress note Author Bonny Glynn [facility] November 26, 2022 10:29pm Note Date/Time November 20, 2022 4:18 pm [facility] [address] [place] [address] Progress Note - Wound Care 11/20/22 1618 MR#: [id number] Acct: [id number] Name: PEDRO HILLMAN Rep #:[id number] : 1945 77 From: Bonny garcia NP BARGE ENGINEER-C PCP: Dr. Tonio Fajardo, DO Status:REG RCR Location: History of Present Illness Date of Service: 11/20/22 Chief Complaint: right medial foot ulcer History of Wound: This 77-year-old male returns to the wound healing clinic for reoccurrence of a right medial foot ulcer. Wound care has been Moistened Cass covered with Inkster SAP dressing. Patient diabetic neuropathic. Patient dealing [...] 14:43 11/20/22 14:43 Charges/Coding Procedures Integumentary 150xxx-152xx: 92654 Skin sub graft face/nk/hf/g Debridement Note Debridement [...] Date Recorded By Document 11/20/22 14:43 DL [id number] 11/20/22 14:49 DL 11/20/22 14:43 - Today's Visit Information Type of service Follow-up Visit (Physician/STREET CLEANING EQUIPMENT OPERATOR ) Arrival Mode Ambulatory,Cane Transfer Assistance [...] Date Recorded By Document 11/20/22 14:43 DL [id number] 11/20/22 14:49 DL 11/20/22 14:43 Wound Center Nurse 1 #9 Right Inferior Hallux -Current Size (cm) - Length 0.2 -Current Size (cm) - Width 0.3 -Current Size (cm) - Depth 0.2 -Total Square Cm 0.06 -Photo Taken No -Exudate Amt Small -Exudate Type Serosanguineous -Wound Margin Thickened -Granulation Amt Small (1-33%) -Granulation Quality [place] -Necrosis Amt Small (1-33%) -Necrotic Tissue Type [...] Date Recorded By Document 11/20/22 15:00 DORA [id number] 11/20/22 15:09 JF Edit Result 11/20/22 15:00 JF (1) [id number] 11/20/22 15:18 JF Edit Result 11/20/22 15:00 JF (2) [id number] 11/20/22 15:20 JF (1) #9 Right Inferior [...] => 08/20/27 - Product Lot Number => [id number] - Percent Used => 100 - Lot number of Saline Used => [id number] 11/20/22 15:00 Wound Center Nurse 2 -Time [...] Disc -Expiration Date 08/20/27 -Product Lot Number [id number] -Percent Used 100 -Lot number of Saline Used [id number] -Bleeding Controlled with Pressure -Treatment Response Procedure [...] Date Recorded By Document 11/20/22 15:35 DL [id number] 11/20/22 15:36 DL 11/20/22 15:35 Wound Care [...] 11/26/222228 <Electronically signed by Bonny Glynn NP BARGE ENGINEER-C> Cosigner Signature (if applicable): CC: ~ Signed [facility] Work Phone: 1(673) 119-374002-21-2023 Progress note Author Bonnyparris Glynn [facility] October 10, 2022 3:29pm Note Date/Time October 09, 2022 4:10pm [facility] [address] [place] [address] Progress Note - Wound Care 10/09/22 1609 MR#: [id number] Acct: [id number] Name: PEDRO HILLMAN Rep #:[id number] : 1945 77 From: Bonny garcia NP BARGE ENGINEER-C PCP: Dr. Tonio Fajardo, DO Status:REG RCR Location: History of Present Illness Date of Service: 10/09/22 Chief Complaint: right foot ulcer History of Wound: This 77-year-old male returns to the wound healing clinic for reoccurrence of a right medial foot ulcer. Wound care has been Moistened [place] covered with [place] SAP dressing. Patient diabetic neuropathic. Patient dealing [...] Method Room Air Charges/Coding Procedures Integumentary 150xxx-152xx: 07941 Skin sub graft face/nk/hf/g Debridement Note Debridement [...] Start: 09/25/22 14:25 Freq: Status: Active Protocol: [email or web address] Activity Type Activity Date Activity User E-sign Co-sign Detail Recorded Client Recorded Date Recorded By Document 09/25/22 14:25 BMF [id number] 09/25/22 14:32 BMF Document 10/02/22 13:28 ML [id number] 10/02/22 13:32 ML Document 10/09/22 12:59 DL [id number] 10/09/22 13:04 DL 09/25/22 10/02/22 10/09/22 14:25 13:28 12:59 - Today's Visit Information Type of service Follow-up Visit Follow-up Visit Follow-up Visit (Physician/STREET CLEANING EQUIPMENT OPERATOR (Physician/STREET CLEANING EQUIPMENT OPERATOR (Physician/STREET CLEANING EQUIPMENT OPERATOR ) ) ) Arrival Mode Ambulatory,Cane [...] Recorded Date Recorded By Document 09/25/22 14:25 [facility] [id number] 02/06/23 14:32 BMF Document 10/02/22 13:28 ML [id number] 10/02/22 13:32 ML Document 10/09/22 12:59 DL [id number] 10/09/22 13:04 DL 09/25/22 10/02/22 10/09/22 14:25 [...] (0 Large (67-100%) %) -Granulation Quality [place] -Slough/Fibrin Yes Yes -Necrosis Amt Small (1-33%) [...] Recorded Date Recorded By Document 09/25/22 14:42 [id number] 09/25/22 14:51 Document 10/02/22 14:14 [id number] 10/02/22 14:17 Document 10/09/22 13:17 [id number] 10/09/22 13:26 09/25/22 10/02/22 10/09/22 14:42 14:14 [...] Date 06/20/27 05/20/27 06/20/27 -Product Lot Number [id number] -Percent Used 100 100 100 -Lot number of Saline Used [id number] -Bleeding Controlled with Pressure Pressure Pressure -Treatment [...] Recorded Date Recorded By Document 09/25/22 14:52 [id number] 09/25/22 14:53 Document 10/02/22 14:18 [id number] 10/02/22 14:19 09/25/22 10/02/22 14:52 14:18 Wound [...] 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 I spoke with his PCP, Dr Fajardo, who was made aware of the results and he said he would treat him from these results. Follow up one week. 10/10/22 1529 <Electronically signed by Bonny Glynn NP BARGE ENGINEER-C> Cosigner Signature (if applicable): CC: ~ Signed [facility] Work Phone: 1(437) 588-311502-14-2023 Progress note Author Bonny Glynn [facility] October 03, 2022 4:51pm Note Date/Time September 26, 2022 1 :17pm [facility] [address] [place] [address] Progress Note - Wound Care 09/25/22 1501 MR#: [id number] Acct: [id number] Name: PEDRO HILLMAN Rep #:[id number] : 1945 77 From: Bonny garcia NP BARGE ENGINEER-C PCP: Dr. Tonio Fajardo, DO Status:REG RCR Location: ADDENDUM by BARGE ENGINEERAlexC Bonny Glynn on 10/03/22 at 1651 Addendum [place] [address] Procedures Integumentary 150xxx-152xx: 16409 Skin sub graft face/nk/hf/g 10/03/22 1651<Electronically signed by Bonny Glynn NP BARGE ENGINEER-C> Cosigner Signature (if applicable): cc: ~* Signed History of Present Illness Date of Service: 09/25/22 Chief Complaint: right foot ulcer History of Wound: This 77-year-old male returns to the wound healing clinic for reoccurrence of a right medial foot ulcer. Wound care has been Moistened Cass covered with [place] SAP dressing. Patient diabetic neuropathic. Patient dealing [...] Method Room Air Charges/Coding Procedures Integumentary 150xxx-152xx: 33071 Skin sub graft trnk/arm/leg Debridement Note Debridement [...] Recorded Date Recorded By Document 09/25/22 14:25 [facility] [id number] 09/25/22 14:32 [facility] 09/25/22 14:25 - Today's Visit Information Type of service Follow-up Visit (Physician/STREET CLEANING EQUIPMENT OPERATOR ) Arrival Mode Ambulatory,Cane Transfer Assistance [...] Recorded Date Recorded By Document 09/25/22 14:25 [facility] [id number] 09/25/22 14:32 [facility] 09/25/22 14:25 Wound Center Nurse 1 [...] Recorded Date Recorded By Document 09/25/22 14:42 [id number] 09/25/22 14:51 09/25/22 14:42 Wound Center Nurse [...] Disc -Expiration Date 06/20/27 -Product Lot Number [id number] -Percent Used 100 -Lot number of Saline Used [id number] -Bleeding Controlled with Pressure -Treatment Response Procedure [...] Recorded Date Recorded By Document 09/25/22 14:52 [id number] 09/25/22 14:53 09/25/22 14:52 Wound Care Center Nurse 3 #9 Right Inferior Hallux -Ulcer Cleansing Rinsed/ Irrigated with Saline -Foul Odor after Cleansing No -Primary Dressing Applied C Hydrogel ($) -Primary Dressing Covered/Secured with Dry Gauze -Mepilex Border 1 Pain Scale: 0-10 Numeric Is Patient Pain Free? Yes - Visit Discharge Discharge Condition Stable Ambulatory Status Ambulatory Transportation Private Auto Accompanied by DIL Medication [...] 1317 <Electronically signed by Bonny Glynn NP BARGE ENGINEER-C> Cosigner Signature (if applicable): CC: ~ Signed [facility] Work Phone: 1(845) 936-893402-14-2023 Progress note Author Bonny Glynn [facility] October 03, 2022 4:49pm Note Date/Time October 02, 2022 2:57pm [facility] [address] [place] [address] Progress Note - Wound Care 10/02/22 5275 MR#: [id number] Acct: [id number] Name: PEDRO HILLMAN Rep #:[id number] : 1945 77 From: Bonny garcia BARGE ENGINEER BARGE ENGINEER-C PCP: Dr. Tonio Fajardo, DO Status:REG RCR Location: History of Present Illness Date of Service: 10/02/22 Chief Complaint: right foot ulcer History of Wound: This 77-year-old male returns to the wound healing clinic for reoccurrence of a right medial foot ulcer. Wound care has been Moistened Cass covered with [place] SAP dressing. Patient diabetic neuropathic. Patient dealing [...] Charges/Coding Visit Charges Office Visits / Consults: 21874 OV L3 Est (25 modifier) Procedures Integumentary 150xxx-152xx: 02144 Skin sub graft face/nk/hf/g Physical Exam Const [...] Recorded Date Recorded By Document 09/25/22 14:25 [facility] [id number] 09/25/22 14:32 [facility] Document 10/02/22 13:28 ML [id number] 10/02/22 13:32 ML 09/25/22 10/02/22 14:25 13:28 - Today's Visit Information Type of service Follow-up Visit Follow-up Visit (Physician/STREET CLEANING EQUIPMENT OPERATOR (Physician/STREET CLEANING EQUIPMENT OPERATOR ) ) Arrival Mode Ambulatory,Cane Cane [...] Recorded Date Recorded By Document 09/25/22 14:25 [facility] [id number] 09/25/22 14:32 [facility] Document 10/02/22 13:28 ML [id number] 10/02/22 13:32 ML 09/25/22 10/02/22 14:25 13:28 [...] Recorded Date Recorded By Document 09/25/22 14:42 [id number] 09/25/22 14:51 Document 10/02/22 14:14 [id number] 10/02/22 14:17 09/25/22 10/02/22 14:42 14:14 Wound [...] -Expiration Date 06/20/27 05/20/27 -Product Lot Number [id number] -Percent Used 100 100 -Lot number of Saline Used [id number] -Bleeding Controlled with Pressure Pressure -Treatment Response [...] Recorded Date Recorded By Document 09/25/22 14:52 [id number] 09/25/22 14:53 Document 10/02/22 14:18 [id number] 10/02/22 14:19 09/25/22 10/02/22 14:52 14:18 Wound [...] they should go to the ED. 10/03/22 8642 <Electronically signed by Bonny Glynn NP BARGE ENGINEER-C> Cosigner Signature (if applicable): CC: ~ Signed [facility] Work Phone: 1(956) 434-339901-10-2023 Progress note Author Bonny Glynn [facility] August 29, 2022 3:36pm Note Date/Time August 29, 2022 2 :32pm [facility] [address] [place] [address] Progress Note - Wound Care 08/29/22 1429 MR#: [id number] Acct: [id number] Name: PEDRO HILLMAN Rep #:[id number] : 1945 77 From: Bonny garcia NP BARGE ENGINEER-C PCP: Dr. Tonio Fajardo, DO Status:REG RCR Location: History of Present Illness Date of Service: 08/29/22 Chief Complaint: right foot ulcer History of Wound: This 77-year-old male returns to the wound healing clinic for reoccurrence of a right medial foot ulcer. Wound care has been Moistened Cass covered with [place] SAP dressing. Patient diabetic neuropathic. Patient dealing [...] Method Room Air Charges/Coding Procedures Integumentary 111xxx-113xx: 40136 Mihaela subq tissue 20 sq cm/< Debridement [...] Recorded Date Recorded By Document 08/29/22 13:17 [facility] [id number] 08/29/22 13:22 [facility] 08/29/22 13:17 WC - Today's Visit Information Type of service Follow-up Visit (Physician/STREET CLEANING EQUIPMENT OPERATOR ) Arrival Mode Ambulatory,Cane Transfer Assistance [...] Recorded Date Recorded By Document 08/29/22 13:17 [facility] [id number] 08/29/22 13:22 [facility] 08/29/22 13:17 Wound Center Nurse 1 [...] Recorded Date Recorded By Document 08/29/22 13:35 [id number] 08/29/22 13:40 08/29/22 13:35 Wound Center Nurse [...] Date Recorded By Document 08/29/22 13:47 DL [id number] 08/29/22 13:47 DL 08/29/22 13:47 Wound Care [...] Silvercel as the primary dressing covered with [place] SAP (secondarydressing) daily after washing foot with [...] 1536 <Electronically signed by Bonny Glynn NP BARGE ENGINEER-C> Cosigner Signature (if applicable): CC: ~ Signed [facility] Work Phone: 1(840) 564-143712-16-2022 Miscellaneous Notes* Telephone Encounter - Liseth Ortiz [...] advise. Steven Rodriguez APRN.CNP documented in this encounterSt. [facility]08-[facility]-2022 Miscellaneous Notes* Telephone Encounter - Jenny Mock - 04/08/2022 2:56 PM EDT Notified pt of results, daughter will call to get information on restrictions. Jenny Mock * Telephone Encounter - Jenny Mock - 04/08/2022 9:18 AM EDT left message on machine to give call back, different number from pharmacy. [phone]. Jenny Allie * Telephone Encounter - Jenny Mock - 04/07/2022 5:48 PM EDT Unable to reach patient. Mailbox full/Mailbox not set up/ Number incorrect. Please try again later. Jenny Mock * Telephone Encounter - Sigrid Monroe LPN - 04/06/2022 6:48 PM EDT Still unable to reach patient and contact lens curve grinder is spouse with same number.Sigrid Monroe LPN [...] ER if severe. documented in this encounterSt. Mary'S Medical Center08-17-2022 NoteHNO ID: [id number] Author: Steven Rodriguez APRN.STREET CLEANING EQUIPMENT OPERATOR Service: ? Author Type: Nurse Practitioner [...] - COVID WITH FLUA+B, ROUTINE Steven Rodriguez APRN.[facility]08-17-2022 NoteHNO ID: [id number] Author: RT Jose Eduardo(R) Service: Nuclear Medicine [...] IV DATA: Not applicable SIGNED BY: Yuliana Olivera, RT(R) April 05, 2022 1:55 [facility]08-17-2022 Influenza virus A and B RNA and SARS-CoV-2 (COVID-19) N gene panel BRYAN+probe (Resp)COVID 19 RESULT: SARS-CoV-2 (Agent of COVID-19) Detected by RT-PCR or equivalent method. anatoly MWEK[employer] (YASMEEN)_EUA This test was developed and its performance characteristics determined by [facility] [place]. This test has been authorized by FDA under an Emergency Use Authorization (EUA). This test has been validated in accordance with the FDA's Guidance Document Policy for DiagnosticsTesting in Laboratories Certified to Perform High Complexity Testing under CLIA prior to Emergency use Authorization for Coronavirus Disease 2019 during the Public Health Emergency issued on October 18, 2019. Test performed by [facility], [facility] [place], [address] [place] [address]. INFLUENZA A PCR: Negative for Influenza A by RT-PCR INFLUENZA B PCR: Negative for Influenza B by RT-PCROhiohealth Shelby HospitalComment on above: Performed By: #### [id number] #### [facility] CLIA [id number] [address] [place] [address] [place] [id number] Miscellaneous Notes* Telephone Encounter - Steven Rodriguez APRN.CNP - 04/05/2022 2:58 PM EDT Radiology report faxed to patient's PCP Dr. Tonio Fajardo at [phone]. Confirmation of fax received. Patient was advised to call Dr. Fajardo today for a follow up appointment. Steven Rodriguez APRN.CNP documented in this encounterSt. Mary'S Medical Center08-17-2022 Instructions* Patient Instructions* Steven Rodriguez APRN.CNP - [...] ROUTINE Steven Rodriguez APRN.CNP documented in this encounterSt. Mary'S Medical Center08-17-2022 History of Present illness Narrative* Steven Rodriguez [...] - COVID WITH FLUA+B, ROUTINE Steven Rodriguez APRN.STREET CLEANING EQUIPMENT OPERATOR documented in this encounterSt. Mary'S Medical Center08-17-2022 History of Present illness Narrative* Yuliana Olivera [...] 2022 1:55 PM documented in this encounterSt. Mary'S Medical CenterConsult note Author Mala Sterling [facility] Note Date/Time March 09, 2025 2:58 pm [facility] Medical Records Department [address] [place] [address] Counseling Note - Pharmacy 03/09/25 1457 MR#: [id number] Acct: [id number] Name: PEDRO HILLMAN Rep #:[id number] : 1945 80 From: Mala Sterling PCP: Dr. Tonio Fajardo, DO Status:ADM IN Y Location: [place] [address] Pharmacy [facility] Counseling Pharmacy Service has performed [...] Signature (if applicable): Date CC: ~ Signed [facility] Work Phone: Discharge summary Author Casper Iniguez [facility] Note Date/Time April 19, 2025 10 :43am [facility] Medical Records Department [address] [place] [address] Emergency Department Summary 04/19/25 MR#: [id number] Acct: [id number] Name: PEDRO HILLMAN Nora Rep #:[id number] : 1945 80 From: Casper Pyle PCP: Dr. Tonio Fajardo, DO Status:REG ER Location: ED HPI History of Present Illness Chief Complaint: [facility] History Presence of cardiac pacemaker Peripheral arterial disease Other persistent atrial fibrillation New onset atrial flutter COVID Wears hearing aid in both ears Former smoker Coronary artery disease Peripheral vascular occlusive disease BPH (benign prostatic hyperplasia) Chronic kidney disease, stage 3 Atherosclerosis of coronary artery of [place] heart without angina pectoris Hyperlipidemia Lower extremity [...] PO DAILY PRN sto ol softner 07/25/23 Unk nown History (Colace) albuterol sulfate 90 mcg/actuation 2 [...] hr (Mucinex) #20 tabs OXYGEN - Supplemental ([facility] 04/09/25 Unknown History INFORMATIONAL USE ONLY) aspirin 81 mg chewable tablet 1 tab PO DAILY Heart hea lth 04/17/25 Unknown History ipratropium 0.5 mg-albuterol 3 mg 3 ml inhalation Q8H SOB 04/17/25 Unknown History (2.5 mg base)/3 mL nebulization soln lanolin alcohols-mineral 1 applic topical BID dry ski n 04/17/25 Unknown History oil-w.petrolatum-ceresin topical cream (Eucerin topical cream) linagliptin 5 mg tablet (Tradjenta) 5 mg PO DAILY 03/22 09/13 Unknown History Allergy/AdvReac Type Severity Reaction Status Date / Time ibuprofen Allergy Severe Facial Verified 04/19/25 08:24 swelling (angioedema) Family History Brother Diabetes Father , Age 72 stomach ulcers No problems noted. Mother , Age 71 pancreatitis No problems noted. Sister , hepatitis C No problems noted. Surgical History History of permanent cardiac pacemaker placement H/O aorto-femoral bypass (~2009) History of transurethral resection of prostate Presence of aortocoronary bypass graft (~03/2013) Social History household members: none Smoking Status: Former smoker Tobacco: How many years used: 30 how long ago did patient quit smokin years EXAM Physical Exam Const Vital Signs: 04/19/25 08:22 04/19/25 08:42 04/19/25 09:28 Temperature 97.9 F Temperature Source Oral Pulse Rate 102 H Pulse Rate [Lying] Pulse Rate [Sitting (for 1 minute prior to obtaining)] Respiratory Rate 19 H Respiratory Effort Normal Respiratory Pattern Normal Blood Pressure 133/63 H Blood Pressure [Lying] Blood Pressure [Sitting (for 1 minute prior to obtaining)] Blood Pressure Mean 86 Blood Pressure Mean [Lying] Blood Pressure Mean [Sitting (for 1 minute prior to obtaining)] Pulse Ox 98 Oxygen Delivery Method Nasal Cannula Oxygen Flow Rate (L/min) 3 04/19/25 09:45 04/19/25 09:54 Temperature Temperature Source Pulse Rate 102 H Pulse Rate [Lying] 102 H Pulse Rate [Sitting (for 1 minute prior to obtaining)] 103 H Respiratory Rate 20 H Respiratory Effort Respiratory Pattern Blood Pressure 117/60 Blood Pressure [Lying] 136/67 H Blood Pressure [Sitting (for 1 minute prior to obtaining)] 85/68 L Blood Pressure Mean 79 Blood Pressure Mean [Lying] 90 Blood Pressure Mean [Sitting (for 1 minute prior to obtaining)] 73 Pulse Ox 100 Oxygen Delivery Method Nasal Cannula Oxygen Flow Rate (L/min) 3 MDM MDM MDM Narrative Medical decision making narrative: HISTORY OF PRESENT ILLNESS: Chief complaint: Syncope 80-year-old male history of A-fib/a flutter, tachybradycardia syndrome status post pacemaker, heart failure, BPH, CKD, COPD, type 2 diabetes, peripheral vascular disease status post aortofemoral bypass in 2009, recent pacemaker placement this presents concern for syncope. Patient notes when he attempts to rise from a seated position gets lightheaded and subsequently passes out. Denies any prodromal symptoms such as headache, chest pain, abdominal pain. Notes he may be dehydrated but denies any vomiting or diarrhea. Denies any cough fever or chills. Notes his pacemaker was placed recently at [facility]. Denies any pain over pacemaker site. REVIEW OF SYSTEMS: Pertinent positives: Syncope Pertinent negatives: As per HPI PHYSICAL EXAM: Nursing triage notes reviewed, Vital signs reviewed Constitutional: please see mdm HENT: MMM Eyes: Pupils equal round and reactive to light, Extraocular muscles intact Neck: No stridor, no JVD, full neck ROM Lungs: Clear to auscultation, No wheezing or rales. No increased work of breathing, no conversational dyspnea, no accessory muscle use, no nasal flaring. No respiratory distress noted Heart: Regular rate and rhythm, No murmurs, No rubs and No gallops, 2+ distal pulses (radial, femoral, posterior tibial) in all extremities. Pacemaker pocketwithout evidence of erythema, TTP, induration fluctuance crepitus. Abdomen: Soft, there is no tenderness, rigidity, rebound or guarding, no obviousperitoneal signs, no palpable pulsatile abdominal masses, no auscultated abdominal bruit : No CVAT Extremities: No edema Neuro: No new focal neurological deficits, cranial nerves II through XII intact,5/5 strength in all present extremities. Intact sensation to light touch in all present extremities, 2+ reflexes bilateral patella tendons. Skin: No rash or lesions noted MEDICAL DECISION MAKING: Chief Complaint: please see [facility] External records reviewed: Pacemaker was placed here with [facility] on 04/09/[address] Hsu Reviewed prior cardiovascular testing: Reviewed last pacemaker check from 04/10/2025 this showed 1 atrial tachycardia/A-fib episode, 100% atrial tachycardia his A- fib burden. No ventricular tachycardia V-fib episodes. Reviewed echocardiogram from 03/05/2025 which shows an ejection fraction of 55% Factors affecting care: As per HPI Social determinants of health: none History obtained from others: TCU Consults: Cardiology (Dr. Miller) - Noted patient safe to stay at [facility]. States he should be able to evaluate the patient here for signs of orthostasis. Recommended getting orthostatic vital signs. Internal medicine (Dr. Narayanan) ? recommended PCU MDM Narrative: The patient was initially I considered the following differential diagnosis: Arrhythmia, anemia, electrolyte disturbance, dehydration I obtained to further determine if the patient was suffering from a life- threatening etiology. ALL IMAGES (IF OBTAINED) HAVE BEEN PERSONALLY REVIEWED AND INTERPRETED BY MYSELF. EKG with sinus tachycardia rate of 102 normal axis, prolonged QT interval at 492, no obvious STEMI Troponin elevated CBC with leukocytosis, mild anemia, no thrombocytopenia. BMP without significant electrolyte disturbances, no sign of endorgan hypoperfusion with a normal anion gap, no sign of metabolic acidosis based on the patient's bicarb on CMP. No sign of liver dysfunction. High-sensitivity troponin is negative, no evidence of myocardial ischemia Chest x-ray was read and reviewed personally by myself showed no evidence of pneumothorax. Did show some pulmonary edema consistent with prior x-rays. No obvious pneumonia. Radiologist noted no significant changes compared to prior EKG. On re-evaluation patient was significant orthostatic and showed hypotension and tachycardia upon movement. The patient and/or family, caregivers express understanding. The patient and/or family, caregivers agrees with the plan. Shared decision making: I will have a discussion with the patient and or visitors regarding risk/benefits of further testing or admission. They will be made aware of of the risk/benefits inherent in this decision they will be given the opportunity to voice understanding. Total critical care time today provided was at least 0 minutes. This excludes separately billable procedures. Critical care time (if documented) is secondary to the patient having high probability of clinically significant/life threatening deterioration in the patient's condition which required my urgent intervention. Impression: 1. Syncope 2. History of tachybradycardia syndrome 3. Orthostasis 4. Anemia 5. History of CKD 6. Elevated troponin Dispo: Admit to PCU This note was generated with [employer] dictation software. It may contain incorrectwords, spelling, and punctuation that were not noted in review of the chart prior to signing. Lab Data Labs: Laboratory Results - last 24 hr 04/19/25 08:35 WBC 10.7 RBC 3.51 L Hgb 9.6 L Hct 30.6 L MCV 87.2 MCH 27.4 MCHC 31.4 L RDW Std Deviation 54.8 H RDW Coeff of Reggie 17.2 H Plt Count 204 MPV 11.1 Immature Gran % (Auto) 1.600 H Neut % (Auto) 75.0 H Lymph % (Auto) 9.1 L [place] % (Auto) 11.3 H Eos % (Auto) 2.7 Baso % (Auto) 0.3 Absolute Neuts (auto) 8.0 H Absolute Lymphs (auto) 0.97 Nucleated RBC % 0 Sodium 136 Potassium 3.5 Chloride 87 L Carbon Dioxide 37.3 H Anion Gap 11 BUN 40 H Creatinine 1.74 H Estim Creat Clear Calc 30.56 L Est GFR (MDRD) Non-Af 39 L BUN/Creatinine Ratio 22.7 H Glucose 132 H Calcium 9.4 Total Bilirubin 0.55 AST 30 ALT 27 Alkaline Phosphatase 79 Troponin T High Sens 99 H* Total Protein 6.8 Albumin 3.4 Globulin 3.4 Albumin/Globulin Ratio 1.0 Radiography Diagnostic Testing: Clinical Impression(s) from Imaging Studies Chest X-Ray 04/19/25 08:54 IMPRESSION: No significant changes on findings suggestive of CHF compared to x-ray 04/12/2025. Reading Location: [facility] Discharge Plan Triage Chief Complaint: Syncope ED Provider: Casper Iniguez Dx/Rx/DC Orders Prescriptions: No Action multivitamin [Daily Multi-Vitamin] Tablet 1 tab PO DAILY pravastatin 20 mg tablet 20 mg PO DAILY docusate sodium [Colace] 100 mg capsule 100 mg PO DAILY PRN cranberry 500 mg capsule 500 mg PO [...] Insulin] 100 unit/mL (3 mL) insulin pen 30 unit subcut QHS guaifenesin [Mucinex] 600 mg tablet extended release 12hr 1,200 mg PO BID Qty: 20 0RF furosemide [Lasix] 40 mg tablet 40 mg PO DAILY Qty: 60 0RF (DME) OXYGEN - Supplemental ([facility] INFORMATIONAL USE ONLY) Gas See Rx Instructions .ROUTE Patient Comments: 2 lpm at rest, 3 lpm on exertion, 2 lpm at HS DME company: [employer] CM Rx Instructions: As directed ipratropium-albuterol 0.5 mg-3 mg(2.5 mg base)/3 mL solution for nebulization 3 ml inhalation Q8H Eucerin Cream 1 applic topical BID aspirin 81 mg tablet,chewable 1 tab PO DAILY Tradjenta 5 mg tablet 5 mg PO DAILY metoprolol succinate 25 mg tablet extended release 24 hr 12.5 mg PO BID Qty: 90 3RF Primary Care Provider: Tonio Fajardo Referrals: Tonio Fajardo DO [Primary Care Provider] - Print Language: Jordanian What to do if you have Problems For any increased pain, shortness of breath, bleeding, nausea or vomiting, chestpain, or any unexpected problems, contact your Primary Care Provider. Call [facility] ([phone]) or report to the closest Emergency Room. Call 911 if necessary. 04/19/25 1043 <Electronically signed by Casper Iniguez DO> Cosigner Signature (if applicable): CC: Dr. 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 Venous insufficiency chronic Ulcer of right foot with fat layer exposed resolved [facility] Work Phone: Evaluation note* Diagnosis Onset [...] right foot with fat layer exposed resolved [facility] Work Phone: evaluation note* Diagnosis Onset [...] right foot with fat layer exposed resolved [facility] Work Phone: Evaluation note* Diagnosis Onset [...] 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 Diagnosis Onset Date Resolution Status Localized [...] acute Nicotine dependence, cigarettes, in remission acute [facility] Work Phone: Evaluation note* Diagnosis Onset [...] right foot with fat layer exposed resolved [facility] Work Phone: Evaluation note* Diagnosis Onset [...] right foot with fat layer exposed resolved [facility] Work Phone: Evaluation note* Diagnosis Onset [...] of upper lobe of right lung acute [facility] Work Phone: Evaluation note* Diagnosis Onset [...] of upper lobe of right lung acute [facility] Work Phone: Evaluation note* Diagnosis Onset [...] of upper lobe of right lung acute [facility] Work Phone: Evaluation note* Diagnosis Onset [...] chronic Presence of aortocoronary bypass graft 2012 [facility] Work Phone: Evaluation note* Diagnosis Onset [...] right foot with fat layer exposed chronic [facility] Work Phone: Evaluation note* Diagnosis Onset [...] right foot with fat layer exposed chronic [facility] Work Phone: Evaluation note* Diagnosis Onset [...] layer exposed chronic Shortness of breath chronic [facility] Work Phone: Evaluation note* Diagnosis Onset [...] of upper lobe of right lung chronic [facility] Work Phone: Evaluation note* Diagnosis Onset [...] of upper lobe of right lung chronic [facility] Work Phone: Evaluation note* Diagnosis Onset [...] right foot with fat layer exposed chronic [facility] Work Phone: Evaluation note* Diagnosis Onset [...] right foot with fat layer exposed chronic [facility] Work Phone: Evaluation note* Diagnosis Onset [...] right foot with fat layer exposed chronic [facility] Work Phone: Evaluation note* Diagnosis Onset [...] right foot with fat layer exposed chronic [facility] Work Phone: Evaluation note* Diagnosis Onset [...] right foot with fat layer exposed chronic [facility] Work Phone: Evaluation note* Diagnosis Onset [...] right foot with fat layer exposed resolved [facility] Work Phone: Evaluation note* Diagnosis Onset [...] right foot with fat layer exposed chronic [facility] Work Phone: Evaluation note* Diagnosis Onset [...] of upper lobe of right lung chronic [facility] Work Phone: Evaluation note* Diagnosis Onset Date Resolution Status Irregular heart rate acute COPD (chronic obstructive pulmonary disease) chronic 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 Plenty of fluids and rest today do not get dehydrated. Return if you are feeling a lot worse or too weak to get around her house. Follow-up with your doctor in the next several days to ensure you are improving. [facility] Work Phone: Hospital Discharge instructions Additional Instructions 1. Keep your postoperative dressing clean dry and intact 2. Continue strict glycemic control. 3. Partial weightbearing to heel with surgical shoe, use walker or crutches 4. Reach out to Dr. Suárez with any questions or concerns and follow-up in 1 week in clinic. [facility] Reason for referral (narrative)No reason for referral information availableWC[facility] Work Phone: Chief Complaint and Reason [...] 04 7:57pm Atherosclerosis of coronary artery of [place] heart without angina pectoris March 04, 2025 [...] 2025 7:57pm Atherosclerosis of coronary artery of [place] heart without angina pectoris March 04, 2025 [...] 15, 2025 4:56 pm 6 M FU/S/P [facility] 03/09March 17, 2025 12: 51pm Reason for [...] 2025 7:57pm Atherosclerosis of coronary artery of [place] heart without angina pectoris March 04, 2025 7:57pm CHF exacerbation March 04, 2025 7:57 pm Hypertension March 04, 2025 7:57 pm Peripheral arterial disease March 04, 025 7:57pm Other persistent atrial fibrillation Lev [...] 15, 2025 4:56 pm 6 M FU/S/P [facility] 03/09March 17, 2025 12: 51pm atrial fibrillation [...] 15, 2025 4:56 pm 6 M FU/S/P [facility] 03/09March 17, 2025 12: 51pm atrial fibrillation [...] 2025 7:57pm Atherosclerosis of coronary artery of [place] heart without angina pectoris March 04, 2025 7:57pm CHF exacerbation March 04, 2025 7:57 pm Hypertension March 04, 2025 7:57 pm Peripheral arterial disease March 04, 7:57pm Other persistent atrial fibrillation Feb 12:51pm Hyperlipidemia March 17, 2025 12:5 1pm Hypertension March 17, 2025 12:5 1pm Peripheral vascular occlusive disease Ju 2024 12:51pm Presence of aortocoronary bypass graft [...] 15, 2025 4:56 pm 6 M FU/S/P [facility] 03/09March 17, 2025 12: 51pm atrial fibrillation [...] CHRONIC DIASTOLIC CHF, ELEVATED TR OPONIN T [place] 20th, 2025 7:57am AE OF CHRONIC DIASTOLIC CHF, [...] 2025 7:57pm Atherosclerosis of coronary artery of [place] heart without angina pectoris March 04, 2025 [...] 15, 2025 4:56 pm 6 M FU/S/P [facility] 03/09March 17, 2025 12: 51pm atrial fibrillation [...] 15, 2025 4:56 pm 6 M FU/S/P [facility] 03/09March 17, 2025 12: 51pm atrial fibrillation [...] 2025 7:57pm Atherosclerosis of coronary artery of [place] heart without angina pectoris March 04, 2025 [...] 7:55pm DARIUSZ (acute kidney injury) April 05 2 025 7:55pm Chronic anticoagulation April 05 [...] 15, 2025 4:56 pm 6 M FU/S/P [facility] 03/09March 17, 2025 12: 51pm atrial fibrillation [...] 15, 2025 4:56 pm 6 M FU/S/P [facility] 03/09March 17, 2025 12: 51pm atrial fibrillation [...] 2025 7:57pm Atherosclerosis of coronary artery of [place] heart without angina pectoris March 04, 2025 [...] 6:19pm Hyperlipidemia April 17, 2025 6: 19pm Chief Complaint Admit Date AE CHF, ATRIAL [...] 15, 2025 4:56 pm 6 M FU/S/P [facility] 03/09March 17, 2025 12: 51pm atrial fibrillation [...] 2025 6:02pm PNEUMONIA & HYDROPNEUMOTHORAX March 6:19pm PRESYNCOPAL SYMPTOMS W/POSITIVE ORTHOSTA TICS April 19, 2025 10:31am Advance Directives No Advanced Directives Records Found Advance Directive Response Recorded Date/ Time Advance Directives No February 17 4 11:03am Living Will No February 17, 2014 1 1:03am Power of Financial Service Representative No February 17, 2014 11:03am Advance Directive Response Recorded Date/ Time Name of Medical Power of Financial Service Representative SON April 14, 2022 8:29am Advance Directives No February 17 4 11:03am Living Will No April 14 2 8:29am Power of Financial Service Representative Yes April 14, 022 8:29am Advance Directive Response Recorded Date/ Time Name of Medical Power of Financial Service Representative SON April 14, 2022 7:29am Advance Directives No February 17 4 10:03am Living Will No April 14 2 7:29am Power of Financial Service Representative Yes April 14 7:29am Advance Directive Response Recorded Date/ Time Advance Directives No February 17 4 10:03am Living Will No April 14 2 7:29am Power of Financial Service Representative Yes April 14, 022 7:29am Advance Directive Response Recorded Date/ Time Advance Directives No February 17 4 11:03am Living Will No April 14 2 8:29am Power of Financial Service Representative Yes April 14, 8:29am Advance Directive Response Recorded Date/ Time Name of Medical Power of Financial Service Representative Gideon Calderon December 30, 2022 10:39pm Advance Directives No February 17 4 11:03am Living Will Yes December 30, 2022 1 0:39pm Power of Financial Service Representative Yes December 30, 2022 10:39pm Advance Directive Response Recorded Date/ Time Advance Directives No February 17 4 11:03am Living Will Yes December 30, 2022 1 0:39pm Power of Financial Service Representative Yes December 30, 2022 10:39pm Advance Directive Response Recorded Date/ Time Advance Directives No February 17 4 10:03am Living Will Yes December 30, 2022 9 :39pm Power of Financial Service Representative Yes December 30, 2022 9:39pm Advance Directive Response Recorded Date/ Time Living Will Yes December 30, 2022 1 0:39pm Power of Financial Service Representative Yes December 30, 2022 10:39pm Advance Directives No February 17 11:03am Advance Directive Response Recorded Date/ Time Living Will Yes December 30, 2022 1 0:39pm Do you have a Healthcare Power of Financial Service Representative? Yes December 30, 2022 10:39pm Living Will No April 14 8:29am Do you have a Healthcare Power of Financial Service Representative? Yes April 14, 2022 8:29am Advance Directives No February 17 11:03am Advance Directive Response Recorded Date/ Time Living Will No April 14 8:29am Do you have a Healthcare Pow er of Financial Service Representative? Yes April 14, 2022 8:29am Do you have a Healthcare Pow er of Financial Service Representative? Yes March 04, 2025 2:58pm Name of Medical Power of Financial Service Representative Ed Daja olmstead March 04, 2025 2:58pm Advance Directives No February 17 11:03am Advance Directive Response Recorded Date/ Time Do you have a Healthcare Power of Financial Service Representative? Yes March 04, 2025 9:11pm Name of Medical Power of Financial Service Representative Ed Daja olmstead March 04, 2025 2:58pm Advance Directives No February 17 11:03am Advance Directive Response Recorded Date/ Time Do you have a Healthcare Power of Financial Service Representative? Yes March 04, 2025 9:11pm Name of Medical Power of Financial Service Representative Ed Daja olmstead March 04, 2025 2:58pm Do you have a Healthcare Power of Financial Service Representative? Yes March 15, 2025 5:04pm Name of Medical Power of Financial Service Representative Ed Daja March 15, 2025 5:04pm Advance Directives No February 17 4 11:03am Advance Directive Response Recorded Date/ Time Do you have a Healthcare Pow er of Financial Service Representative? Yes March 04, 2025 9:11pm Name of Medical Power of Financial Service Representative Ed Daja olmstead March 04, 2025 2:58pm Do you have a Healthcare Pow er of Financial Service Representative? Yes April 05, 2025 4:49pm Do you have a Healthcare Pow er of Financial Service Representative? Yes March 15, 2025 5:04pm Name of Medical Power of Financial Service Representative Ed Daja March 15, 2025 5:04pm Advance Directives No February 17 11:03am Advance Directive Response Recorded Date/ Time Do you have a Healthcare Pow er of Financial Service Representative? Yes March 04, 2025 9:11pm Name of Medical Power of Financial Service Representative Ed Daja olmstead March 04, 2025 2:58pm Do you have a Healthcare Pow er of Financial Service Representative? Yes April 05, 2025 8:49pm Do you have a Healthcare Pow er of Financial Service Representative? Yes March 15, 2025 5:04pm Name of Medical Power of Financial Service Representative Ed Daja March 15, 2025 5:04pm Advance Directives No February 17 11:03am Advance Directive Response Recorded Date/ Time Do you have a Healthcare Pow er of Financial Service Representative? Yes March 04, 2025 9:11pm Name of Medical Power of Financial Service Representative Ed Daja olmstead March 04, 2025 2:58pm Do you have a Healthcare Pow er of Financial Service Representative? Yes April 05, 2025 8:49pm Do you have a Healthcare Pow er of Financial Service Representative? Yes April 12, 2025 6:18pm Do you have a Healthcare Pow er of Financial Service Representative? Yes March 15, 2025 5:04pm Name of Medical Power of Financial Service Representative Ed Daja March 15, 2025 5:04pm Do you have a Healthcare Pow er of Financial Service Representative? Yes April 10, 2025 10:00pm Advance Directives No February 17 11:03am Advance Directive Response Recorded Date/ Time Do you have a Healthcare Pow er of Financial Service Representative? Yes March 04, 2025 9:11pm Name of Medical Power of Financial Service Representative Ed Daja olmstead March 04, 2025 2:58pm Do you have a Healthcare Pow er of Financial Service Representative? Yes April 05, 2025 8:49pm Do you have a Healthcare Pow er of Financial Service Representative? Yes April 12, 2025 6:18pm Do you have a Healthcare Pow er of Financial Service Representative? Yes March 15, 2025 5:04pm Name of Medical Power of Financial Service Representative Ed Daja March 15, 2025 5:04pm Do you have a Healthcare Pow er of Financial Service Representative? Yes April 10, 2025 10:00pm Do you have a Healthcare Pow er of Financial Service Representative? Yes April 17, 2025 6:20pm Name of Medical Power of Financial Service Representative Gideon Farnsworth April 17, 2025 6:20pm Do you have a Healthcare Pow er of Financial Service Representative? Yes April 19, 2025 8:42am Advance Directives [...] this informatio n is protected by the [facility] Confidentiality of Alcohol and Drug Abuse Patient Records regulations: The Federal rules restrict any use of the information to criminally investigate or prosecute any alcohol or drug abuse patient.[facility] the event this information is protected by the Federal Confidentiality of Alcohol and Drug Abuse Patient Records regulations: The Federal rules restrict any use of the information to criminally investigate or prosecute any alcohol or drug abuse patient.[facility] Center[facility] the event this information is protected by the Federal Confidentiality of Alcohol and Drug Abuse Patient Records regulations: The Federal rules restrict any use of the information to criminally investigate or prosecute any alcohol or drug abuse patient.[facility] Center[facility] the event this information is protected by the Federal Confidentiality of Alcohol and Drug Abuse Patient Records regulations: The Federal rules restrict any use of the information to criminally investigate or prosecute any alcohol or drug abuse patient.[facility] Center[facility] the event this information is protected by the Federal Confidentiality of Alcohol and Drug Abuse Patient Records regulations: The Federal rules restrict any use of the information to criminally investigate or prosecute any alcohol or drug abuse patient.[facility] Reason for Visit (unrecogniz ed section and content) Reason Comments Results Reason Comments Urinary Problem burning with urinati on x 1 week nasal congestion and drainage x 1 week Reason Comments Results COVID+ Reason Comments Patient Update Care Teams (unrecognized sec tion and content) Cash Applications Associate Relationship Specialty Start Date End Date Tonio Fajardo DO [address] [place], [place] [id number] PCP - General Family Practice 04/05/22 Cash Applications Associate Relationship Specialty Start Date End Date Tonio Fajardo DO [address] [place] [address] [place], [place] [id number] PCP - General Family Practice 04/05/22 Cash Applications Associate Relationship Specialty Start Date End Date Tonio Fajardo DO [address] [place], [place] [id number] PCP - General Family Practice 04/05/22 Cash Applications Associate Relationship Specialty Start Date End Date Tonio Fajardo DO [address] [place], [place] [id number] PCP - General Family Medicine 04/05/22 Team Status: Active Member Role Status Dates Dr. Tonio Fajardo DO Family Provider Active Dr. Tonio Fajardo DO Primary Care Provider Active Team Status: Inactive Member Role Status Dates Dr. Tonio Fajardo DO Primary Care Provider, Referrin g Provider Active Iker H Roof BARGE ENGINEER, BARGE ENGINEER-C Attending Provider Active Team Status: Inactive Member [...] DO Primary Care Provider Active Bonny Glynn BARGE ENGINEER, BARGE ENGINEER-C Attending Pro vider, Referring Provider, Other Provider [...] DO Primary Care Provider Active Dr. Srini Cohi DO Attending Provider Active Team Status: Active Member Role Status Dates Dr. Tonio Fajardo DO Primary Care Provider Active Dr. Russ Zamora MD Attending Provider, Referring Pro vider Active Dr. Srini Choi , DO Other Provider Active Team Status: Inactive Member Role Status Dates Dr. Tonio Fajardo DO Primary Care Provider Active Bonny Glynn BARGE ENGINEER, BARGE ENGINEER-C Attending Provider Active Team Status: Active Member [...] DO Primary Care Provider Active Bonny Glynn BARGE ENGINEER, BARGE ENGINEER-C Attending Provider Active Team Status: Inactive Member Role Status Dates Dr. Tonio Fajardo , DO Primary Care Provider Active Bonny Glynn BARGE ENGINEER, BARGE ENGINEER-C Attending Provider, Referri ng Provider Active Team Status: Inactive Member Role Status Dates Dr. Tonio Fajardo , DO Primary Care Provider, Referrin g Provider Active Dr. Tyrell Uriarte , DO Attending Provider Active Team Status: Active Member Role Status Dates Dr. Tonio Fajardo , DO Primary Care Provider Active Bonny Glynn BARGE ENGINEER, BARGE ENGINEER-C Attending Provider, Other P rovider Active Team [...] Provider, Referrin g Provider Active Bonny Glynn BARGE ENGINEER, BARGE ENGINEER-C Attending Provider Active Team Status: Inactive Member [...] Suárez DPM Referring Provider Active Dr. Edi Ledsema DPM Attending Provider Active Team Status: Inactive Member Role Status Dates Dr. Tonio Fajardo , DO Primary Care Provider, Referrin g Provider Active Lorie Mart BARGE ENGINEER, BARGE ENGINEER-C Attending Provider Active Team Status: Inactive Member Role Status Dates Dr. Tonio Fajardo , DO Primary Care Provider, Referrin g Provider Active Leslie DAMIAN, PA Attending Provider Active Team Status: Inactive Member Role Status Dates Dr. Tonio Fajardo DO Primary Care Provider Active Lorie Mart BARGE ENGINEER, BARGE ENGINEER-C Attending Provider, Referrin g Provider Active Team Status: Active Member Role Status Dates Dr. Tonio Fajardo DO Primary Care Provider Active Dr. Issa Looney MD Attending Provider Active Team Status: Inactive Member Role Status Dates Dr. Tonio Fajardo DO Primary Care Provider Active Leslie DAMIAN, PA Attending Provider, Referr ing Provider Active Team Status: Inactive Member Role Status Dates Dr. Tonio Fajardo DO Primary Care Provider Active Dr. Joaquim Suárez DPM Attending Provider Active Cash Applications Associate Relationship Specialty Start Date End Date Tonio Fajardo DO [address] [place] [address] PCP - General Family Medicine 04/05/22 Team [...] End: September 25, 2024 Leslie DAMIAN, PA Referring Provider Active Start: September 25, 2024 End: September 25, 2024 Team Status: Inactive Member Role Status Dates Dr. Tonio Fajardo DO Primary Care Provider Active Start: October 16, 2024 End: October 16, 2024 Lorie Mart BARGE ENGINEER, BARGE ENGINEER-C Attending Provider Active Start: October 16, 2024 End: October 16, 2024 Lorie Mart BARGE ENGINEER, BARGE ENGINEER-C Referring Provider Active Start: October 16, 2024 End: October 16, 2024 Team Status: Active Member Role Status Dates Dr. Tonio Fajardo DO Primary Care Provider Active Start: October 17, 2024 Lorie Mart BARGE ENGINEER, BARGE ENGINEER-C Referring Provider Active Start: October 17, 2024 Lorie Mart BARGE ENGINEER, BARGE ENGINEER-C Other Provider Active Start: October 17, 2024 [...] 2024 End: October 23, 2024 Lorie Mart BARGE ENGINEER, BARGE ENGINEER-C Attending Provider Active Start: October 23, 2024 [...] 2025 End: March 09, 2025 Iker Rodriguez BARGE ENGINEER, BARGE ENGINEER-C Other Provider Active Start : March 04, 2025 End: March 09, 2025 Leslie DAMIAN, PA Other Provider Active Start: March 04, [...] Active Start: March 05, 2025 Iker Rodriguez BARGE ENGINEER, BARGE ENGINEER-C Other Provider Active Start : March 05, [...] Active Start: March 06, 2025 Dr. Susan Hawely MD Other Provider Active Start : March [...] Active Start: March 06, 2025 Iker Rodriguez BARGE ENGINEER, BARGE ENGINEER-C Other Provider Active Start : March 06, [...] St art: March 06, 2025 Dr. Orly Mitchlel MD Other Provider Active Start: March 06, 2025 Dr. Reinaldo Mclain MD Other Provider Active S tart: March 06, 2025 Dr. Santos Hsu MD Other Provider Active Start: March 06, 2025 Iker Rodriguez BARGE ENGINEER, BARGE ENGINEER-C Other Provider Active Start : March 06, [...] Active Start: March 07, 2025 Iker Rodriguez BARGE ENGINEER, BARGE ENGINEER-C Other Provider Active Start : March 07, [...] Active Start: March 08, 2025 Iker Rodriguez BARGE ENGINEER, BARGE ENGINEER-C Other Provider Active Start : March 08, [...] Active Start: March 08, 2025 Iker Rodriguez BARGE ENGINEER, BARGE ENGINEER-C Other Provider Active Start : March 08, [...] Active Start: March 09, 2025 Iker Rodriguez BARGE ENGINEER, BARGE ENGINEER-C Other Provider Active Start : March 09, [...] Active Start: March 09, 2025 Iker Rodriguez BARGE ENGINEER, BARGE ENGINEER-C Other Provider Active Start : March 09, [...] Active S tart: March 27, 2025 Leslie DAMIAN PA Referring [...] Sousa Attending Provider Active Start: A ug2024 Team Status: Inactive Member Role/Relationship Status [...] : April 10, 2025 Dr. Nicola Lindsey , DO Admit Provider Active Start: April 10, [...] Emergency Provider Active Start: April 19, 2025 Team Status: Active Member Role/Relationship Status Dates Dr. Tonio Fajardo DO Primary Care Provider Active Start: April 19, 2025 Dr. Casper Iniguez DO Emergency Provider Active Start: April 19, 2025 Dr. Kwaku Narayanan DO Admit Provider Active Start: April 19, 2025 Dr. Kwaku Narayanan DO Attending Provider Active Start: April 19, 2025 (unrecognized sect ion and content) No Status Records FoundNo Status Records FoundNo Status Records Found INFORMATION SOURCE (unrecogn ized section and content) DATE CREATED AUTHOR 08/12/2022 [facility] DATE CREATED AUTHOR AUTHOR'S ORGANIZ ATION 04/19/2025 [facility] DATE CREATED AUTHOR AUTHOR'S ORGANIZ ATION 04/20/2025 [facility] FOR RECORDS PERTAINING TO PATIENTS WHO ARE [...] BE BASED ON THE PRIMARY CLINICAL RECORDS. [employer] provides no warranty or guarantee of the accuracy or completeness of information in this document.
--- OUTSIDE RECORDS SUMMARY | 2025-04-20 14:14 | XMS RPT_ITS | CCD ---
Author Organization [facility] Care Team Providers Care Manganese Breaker Name Role Phone Dr. Tonio Fajardo Primary Care Provider [phone] Dr. Tonio Fajardo Referring Provider [phone] Issa Looney Attending Provider [phone] Tonio Fajardo DO Primary Care Provider Dr. Tyrell Uriarte Attending Provider Dr. Tonio Fajardo Primary Care Provider [phone] Dr. Tonio Fajardo Referring Provider Brittny DECK SUPERVISOR, DECK SUPERVISOR-C Lorie Attending Provider Dr. Russ Zamora Attending Provider Renard DECK SUPERVISOR, DECK SUPERVISOR-C Bonny E Attending Provider Renard DECK SUPERVISOR, DECK SUPERVISOR-C Bonny E Referring Provider Renard DECK SUPERVISOR, DECK SUPERVISOR-C Bonny E Other Provider Dr. Srini Choi Attending Provider Dr. Srini Choi Referring Provider Dr. Srini Choi Other Provider Dr. Mateo Shahid Attending Provider Dr. Issa Looney Attending Provider Dr. Kenyon Flores Referring Provider Unava ilable Dr. Srini Choi Referring Provider Dr. Tevin Allen Attending Provider [phone] Dr. Tonio Fajardo Primary Care Provider [phone] Dr. Tonio Fajardo Referring Provider Dr. Tyrell Uriarte Attending Provider Dr. Issa Looney Attending Provider Dr. Kenyon Flores Referring Provider Unava mp Mart DECK SUPERVISOR, DECK SUPERVISOR-C Lorie Attending Provider Dr. Russ Zamora Attending Provider Renard DECK SUPERVISOR, DECK SUPERVISOR-C Bonny E Attending Provider [phone] Renard DECK SUPERVISOR, DECK SUPERVISOR-C Bonny E Referring Provider [phone] Renard DECK SUPERVISOR, DECK SUPERVISOR-C Bonny E Other Provider Dr. Srini Choi Attending Provider Dr. Srini Choi Referring Provider Dr. Srini Choi Other Provider Dr. Mateo Shahid Attending Provider Roof DECK SUPERVISOR, DECK SUPERVISOR-C Iker Stephens Attending Provider Tonio Fajardo DO Primary Care Provider STEVEN RODRIGUEZ Referring Unavailable TONIO FAJARDO Primary Care Unavailable TONIO FAJARDO Primary Care Unavailable Dr. Tonio Fajardo Primary Care Provider Dr. Tonio Fajardo Referring Provider Dr. Tonio Fajardo Primary Care Provider Renard DECK SUPERVISOR, DECK SUPERVISOR-C Bonny E Attending Provider Renard DECK SUPERVISOR, DECK SUPERVISOR-C Bonny E Referring Provider Renard DECK SUPERVISOR, DECK SUPERVISOR-C Bonny E Other Provider Dr. Tonio Fajardo Referring Provider Dr. Russ Zamora Attending Provider Dr. Tonio Fajardo Primary Care Provider Dr. Srini Choi Attending Provider Dr. Srini Choi Referring Provider Rneard DECK SUPERVISOR, DECK SUPERVISOR-C Bonny E Attending Provider [phone] Renard DECK SUPERVISOR, DECK SUPERVISOR-C Bonny E Referring Provider Renard DECK SUPERVISOR, DECK SUPERVISOR-C Bonny E Other Provider Dr. Tonio Fajardo Referring Provider Dr. Russ Zamora Attending Provider Dr. Tonio Fajardo Primary Care Provider Renard DECK SUPERVISOR, DECK SUPERVISOR-C Bonny E Attending Provider Renard DECK SUPERVISOR, DECK SUPERVISOR-C Bonny E Referring Provider Renard DECK SUPERVISOR, DECK SUPERVISOR-C Bonny E Other Provider Dr. Tonio Fajardo Referring Provider Dr. Russ Zamora Attending Provider Dr. Srini Choi Attending Provider Dr. Tyrell Uriarte Attending Provider Dr. Tonio Fajardo Primary Care Provider Renard DECK SUPERVISOR, DECK SUPERVISOR-C Bonny E Attending Provider Renard DECK SUPERVISOR, DECK SUPERVISOR-C Bonny E Referring Provider Renard DECK SUPERVISOR, DECK SUPERVISOR-C Bonny E Other Provider Dr. Tonio Fajardo Primary Care Provider Renard DECK SUPERVISOR, DECK SUPERVISOR-C Bonny E Attending Provider Renard DECK SUPERVISOR, DECK SUPERVISOR-C Bonny E Referring Provider Renard DECK SUPERVISOR, DECK SUPERVISOR-C Bonny E Other Provider [phone] Dr. Tonio Fajardo Primary Care Provider Renard DECK SUPERVISOR, DECK SUPERVISOR-C Bonny E Attending Provider Renard DECK SUPERVISOR, DECK SUPERVISOR-C Bonny E Referring Provider Renard DECK SUPERVISOR, DECK SUPERVISOR-C Bonny E Other Provider Dr. Tonio Fajardo Referring Provider Dr. Tonio Fajardo Primary Care Provider Renard DECK SUPERVISOR, DECK SUPERVISOR-C Bonny E Attending Provider Renard DECK SUPERVISOR, DECK SUPERVISOR-C Bonny E Referring Provider Renard DECK SUPERVISOR, DECK SUPERVISOR-C Bonny E Other Provider Dr. Tonio Fajardo Primary Care Provider Renard DECK SUPERVISOR, DECK SUPERVISOR-C Bonny E Attending Provider [phone] Renard DECK SUPERVISOR, DECK SUPERVISOR-C Bonny E Referring Provider Renard DECK SUPERVISOR, DECK SUPERVISOR-C Bonny E Other Provider Dr. Tonio Fajardo Primary Care Provider Renard DECK SUPERVISOR, DECK SUPERVISOR-C Bonny E Attending Provider Renard DECK SUPERVISOR, DECK SUPERVISOR-C Bonny E Referring Provider Renard DECK SUPERVISOR, DECK SUPERVISOR-C Bonny E Other Provider Dr. Tonio Fajardo Referring Provider Dr. Russ Zamora Attending Provider Dr. Tonio Fajardo Primary Care Provider Renard DECK SUPERVISOR, DECK SUPERVISOR-C Bonny E Attending Provider Renard DECK SUPERVISOR, DECK SUPERVISOR-C Bonny E Referring Provider [phone] Renard DECK SUPERVISOR, DECK SUPERVISOR-C Bonny E Other Provider Dr. Francisco Javier Lozada Attending Provider Dr. Joaquim Suárez Referring Provider Dr. Tonio Fajardo Primary Care Provider Renard DECK SUPERVISOR, DECK SUPERVISOR-C Bonny E Attending Provider [phone] Renard DECK SUPERVISOR, DECK SUPERVISOR-C Bonny E Referring Provider Renard CAMPUZANO, DECK SUPERVISOR-C Bonny Melendez Other Provider Dr. Tonio Fajardo Referring Provider Dr. Russ Zamora Attending Provider Dr. Francisco Javier Lozada Attending Provider Dr. Joaquim Suárez Referring Provider Dr. Tonio Fajardo Primary Care Provider Brittny DECK SUPERVISOR, DECK SUPERVISOR-C Lorie Attending Provider [phone] RICKIE Alejandra Attending Provider Dr. Tonio Fajardo [...] Referring Provider Brittny CAMPUZANO-CLorie Attending Provider Brittny DECK SUPERVISOR-C, Lorie Referring Provider Brittny DECK SUPERVISOR-C, Lorie Other Provider [phone] Tyrell Uriarte DO Attending Provider [phone] Tonio Fajardo DO Attending Provider Sera STRATTON, Dr. Solano Attending Provider Sera STRATTON, Dr. Solano Referring Provider Scotty MCGEE, Dr. Elizalde Primary Care Provider [place] , Dr. Milligan Other Provider Scotty MGCEE, Dr. Elizalde Primary Care Provider Scotty MCGEE, [...] Shadi STRATTON, Dr. Graham Other Provider Michael DECK SUPERVISOR-C, Iker Stephens Other Provider Leslie Alejandra Other Provider Tadeo Fink Other Provider Grzegorz STRATTON, Dr. Leos Other Provider Peter STRATTON, Dr. Amador Attending Provider Jailyn STRATTON, Dr. Dorsey Attending Provider Florencio STRATTON, Dr. Johnson Emergency Provider [facility] , Dr. Elizalde Referring Provider Leslie Alejandra Attending Provider Florencio STRATTON, Dr. Johnson Attending Provider [facility] , Dr. Elizalde Attending Provider Leslie Alejandra Referring Provider Carmelina Parra Attending Provider Unavailable Carmelina Parra Referring Provider Unavailable Scotty DO, Dr. Elizadle Primary Care Provider Don STRATTON, Dr. Perez [...] Provider Shadi STRATTON, Dr. Graham [facility]ker Stephens Other Provider Leslie Alejandra Other [...] Provider Dr. Daniel Brownlee DO Emergency Provider DR TONIO FAJARDO DO Primary Care Physician DR TUNG CAAL DO Attending Unavailable DR DAVID STERLING MD Admitting Unavailable KERMIT STRATTON, ABBI Strauss Consulting Unavailable DR TONIO FAJARDO DO Primary Care Unavailab Dr. Daniel Roe DO Attending Provider Geovani STRATTON, Dr. Valdez Lu Referring Provider Hira MCGEE, Dr. Shirley Emergency Provider Hira MCGEE, Dr. Shirley Emergency Provider [phone] Lady MCGEE, Dr. Ames Admit Provider Lady MCGEE, Dr. Amse Attending Provider Leslie Alejandra Referring Unavail able Scotty, Tonio Primary Care Unavailable Leslie Alejandra Attending Unavail able Brittny DECK SUPERVISOR, Lorie Referring Unavailable Scotty, Tonio Primary Care Unavailable Brittny DECK SUPERVISOR, Lorie Attending Unavailable Nicola Lindsey Admitting Unavailable Manjit, Jayaprakas Consulting Unavailable Nicola Roman Attending Unavailable Scotty, Tonio Primary Care Unavailable Nicola Lindsey Consulting Unavailable Grzegorz, Deric Consulting Unavailable Aayush, Issa Consulting Unavailable Nicola Lindsey Admitting Unavailable Manjit, Jayaprakas Consulting Unavailable Nicola Roman Attending Unavailable Scotty, Tonio Primary Care Unavailable Nicola Lindsey Consulting Unavailable Grzegorz, Deric Consulting Unavailable Nicola Roman Consulting Unavailable Scotty, Tonio Primary Care [...] Consulting Unavailable Jose Lai Consulting Unavailable Aayush, [place] Consulting Unavailable Chago Miller Consulting Unavailable Willian [...] Care Unavailable Scotty, Tonio Referring Unavailable Brittny DECK SUPERVISORLorie Referring Unavailable Scotty, Tonio Primary Care Unavailable Brittny DECK SUPERVISOR, Lorie Consulting Unavailable Tyrell Uriarte Attending Unavailable [...] Orly Mitchell Consulting UnavailReinaldo Lima Consulting Unavailable [place], Santos Consulting Unavailable Iker Rodriguez NP Consulting [...] Unavailable Scotty, Tonio Primary Care Unavailable Brittny DECK SUPERVISOR, Lorie Attending Unavailable Scotty, Tonio Referring Unavailable [...] Drug Allergy 2 Shortness of Breath [facility] Work Phone: (1 source) Ibuprofen Drug Allergy 5 [facility] Repository Medications Current Medications Medication Drug Class(es) [...] 07-25-2023 Start: 04-14-2022 [facility] Docusate Sodium (Colace) 100 mg Capsule Active 100 MG PO DAILY NEEDED April 14, 2022 12:00am fish oil/borage/flax/om3,6,9 1 ([place] 3-6-9 COMPLEX ORAL) (5 sources) fish oil/borage/ flax/om3,6,9 1 (OMEGA 3-6-9 COMPLEX ORAL) Take by mouth. Active fish oil/borage/ flax/om3,6,9 1 (OMEGA 3-6-9 COMPLEX ORAL) Take by mouth. 0 Active Comment on above: Take by mouth. Fish,Bora,Flax Oils-Om3,6,9no1 ([place] 3-6-9) 1,200 mg Capsule (8 sources) Start: 11-02-2021 take 1 capsule by mouth twice daily Fish,Bora,Flax Oils-Om3,6,9no1 ([place] 3-6-9) 1,200 mg Capsule Active 1 CAP PO TWICE A DAY November 02, 2021 1:31pm Start: 11-02-2021 [facility] Fish,Bora,Flax Oils-Om3,6,9no1 ([place] 3-6-9) 1,200 mg Capsule Active 1 CAP [...] tablet (20 sources) Start: 02-07-2014 End: 11-19-2019 [id number] 200 actuat albuterol 0.09 mg/actuat metered dose [...] Fills Dispensed: 0 Fish Oil-Fat Acid Comb.8-Hb137 ([place] 3-6-9 1,200 Mg Softgel) 1,200 MG capsule (20 sources) Start: 12-03-2013 End: 03-21-2017 Fish Oil-Fat Acid Comb.8-Hb137 ([place] 3-6-9 1,200 Mg Softgel) 1,200 MG capsule Discontinued 1000 MG PO TWICE A DAY December 03, 2013 11:07am March 21, 2017 2:47pm Start: 12-03-2013 End: 03-21-2017 Fish Oil-Fat Acid Comb.8-Hb1 37 ([place] 3-6-9 1,200 Mg Softgel) 1,200 MG capsule Discontinued 1000 mg PO TWICE A DAY December 03, 2013 12:00am March 21, 2017 2:47pm Start: 12-03-2013 End: 03-21-2017 Fish Oil-Fat Acid Comb.8-Hb1 37 ([place] 3-6-9 1,200 Mg Softgel) 1,200 MG capsule Discontinued 1000 MG PO TWICE A DAY December 02, 2013 11:00pm March 21, 2017 1:47pm Start: 12-03-2013 End: 03-21-2017 Fish Oil-Fat Acid Comb.8-Hb1 37 ([place] 3-6-9 1,200 Mg Softgel) 1,200 MG capsule [...] 21, 2017 12:00am November 19, 2019 3:48pm Vgutrbjilfv-Hxqedajsx-Qvpucu er (18 sources) Start: 02-15-2024 End: 09-25-2024 Start: 02-15-2024 End: 09-25-2024 Zarfzesozvc-Twfddpavf-Clwnnu er (Trelegy Ellipta) 200-62.5-25 mcg blister with device Discontinued 1 NMA INHALATION DAILY 3 February 15, 2024 12:00am September 25, 2024 2:02pm Start: 02-15-2024 End: 09-25-2024 Hwlpydezjcr-Bpezhwncj-Jsfufd er (Trelegy Ellipta) 200-62.5-25 mcg blister with [...] August 25, 2013 10:01am lactobacillus acidophilus 10 [id number] unt oral capsule (20 sources) Start: 05-24-2022 [...] Coronary atherosclerosis; Translations: [Atherosclerotic heart disease of [place] coronary artery without angina pectoris] Onset: 04-10-2025 [...] sources) Long-term current use of anticoagulant; Translations: [alf (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 of anticoagulants] 03-04-2025 Episodic Other aftercare (13 sources) Long-term current use of drug therapy; 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, [address] BUN/CRE Normal 10-20 [facility] Comment on above: Result Comment: Canc elled via OM: Order cancelled - Patient discharged Performed By: #### L 100.0100, L500.2500 ####[facility] [address] [place], [address] Calcium Normal 7.6-11.0 [facility] Comment on above: Result Comment: Canc elled via OM: Order cancelled - Patient discharged Performed By: #### L 100.0100, L500.2500 ####[facility] [address] [place], [address] CL Normal 98-108 [facility] Comment on above: Result Comment: Canc elled via OM: Order cancelled - Patient discharged Performed By: #### L 100.0100, L500.2500 ####[facility] [address] [place], [address] CO2 Normal 21.0-32.0 [facility] Comment on above: Result Comment: Canc elled via OM: Order cancelled - Patient discharged Performed By: #### L 100.0100, L500.2500 ####[facility] [address] [place], [address] CREAT,SERUM Normal 0.70-1.20 [facility] Comment on above: Result Comment: Canc elled via OM: Order cancelled - Patient discharged Performed By: #### L 100.0100, L500.2500 ####[facility] [address] [place], [address] eGFR Normal >60 [facility] Comment on above: Result Comment: Canc elled via OM: Order cancelled - Patient discharged Performed By: #### L 100.0100, L500.2500 ####[facility] [address] [place], [address] GAP Normal 5-15 [facility] Comment on above: Result Comment: Canc elled via OM: Order cancelled - Patient discharged Performed By: #### L 100.0100, L500.2500 ####[facility] [address] [place], [address] GLU Normal 70-99 [facility] Comment on above: Result Comment: Canc elled via OM: Order cancelled - Patient discharged Performed By: #### L 100.0100, L500.2500 ####[facility] [address] [place], [address] Potassium Normal 3.3-5.1 [facility] Comment on above: Result Comment: Canc elled via OM: Order cancelled - Patient discharged Performed By: #### L 100.0100, L500.2500 ####[facility] [address] [place], [address] Basic Metabolic Profile (BMP) Normal 133-145 [facility] Comment on above: Result Comment: Canc elled via OM: Order cancelled - Patient discharged Performed By: #### L 100.0100, L500.2500 ####[facility] [address] [place], [address] CBC W/Diff, Automatedon 09-2 0-2024 Absolute Neut Normal 2.0-7.7 [facility] Comment on above: Result Comment: Canc elled via OM: Order cancelled - Patient discharged Performed By: #### L 100.0100, L500.2500 ####[facility] [address] [place], [address] HCT Normal 40-54 [facility] Comment on above: Result Comment: Canc elled via OM: Order cancelled - Patient discharged Performed By: #### L 100.0100, L500.2500 ####[facility] [address] [place], [address] HGB Normal 13.0-16.5 [facility] Comment on above: Result Comment: Canc elled via OM: Order cancelled - Patient discharged Performed By: #### L 100.0100, L500.2500 ####[facility] [address] [place], [address] MCH Normal 27.0-32.0 [facility] Comment on above: Result Comment: Canc elled via OM: Order cancelled - Patient discharged Performed By: #### L 100.0100, L500.2500 ####[facility] [address] [place], [address] MCHC Normal 32-36 [facility] Comment on above: Result Comment: Canc elled via OM: Order cancelled - Patient discharged Performed By: #### L 100.0100, L500.2500 ####[facility] [address] [place], [address] MCV Normal 80-94 [facility] Comment on above: Result Comment: Canc elled via OM: Order cancelled - Patient discharged Performed By: #### L 100.0100, L500.2500 ####[facility] [address] [place], [address] NEUT% Normal 47-70 [facility] Comment on above: Result Comment: Canc elled via OM: Order cancelled - Patient discharged Performed By: #### L 100.0100, L500.2500 ####[facility] [address] [place], [address] PLT Normal 150-450 [facility] Comment on above: Result Comment: Canc elled via OM: Order cancelled - Patient discharged Performed By: #### L 100.0100, L500.2500 ####[facility] [address] [place], [address] RBC Normal 4.6-6.2 [facility] Comment on above: Result Comment: Canc elled via OM: Order cancelled - Patient discharged Performed By: #### L 100.0100, L500.2500 ####[facility] [address] [place], [address] RDW CV Normal 11.6-14.6 [facility] Comment on above: Result Comment: Canc elled via OM: Order cancelled - Patient discharged Performed By: #### L 100.0100, L500.2500 ####[facility] [address] [place], [address] RDW SD Normal 35.1-43.9 [facility] Comment on above: Result Comment: Canc elled via OM: Order cancelled - Patient discharged Performed By: #### L 100.0100, L500.2500 ####[facility] [address] [place], [address] WBC Normal 4.4-11.0 [facility] Comment on above: Result Comment: Canc elled via OM: Order cancelled - Patient discharged Performed By: #### L 100.0100, L500.2500 ####[facility] [address] [place], [address] Basic Metabolic Profile (BMP )on 05-08-2025 BUN Normal 4-19 [facility] Comment on above: Result Comment: Canc elled via OM: Order cancelled - Patient discharged Performed By: #### L 500.2500, L100.0100 ####[facility] [address] [place], [address] BUN/CRE Normal 10-20 [facility] Comment on above: Result Comment: Canc elled via OM: Order cancelled - Patient discharged Performed By: #### L 500.2500, L100.0100 ####[facility] [address] [place], [address] Calcium Normal 7.6-11.0 [facility] Comment on above: Result Comment: Canc elled via OM: Order cancelled - Patient discharged Performed By: #### L 500.2500, L100.0100 ####[facility] [address] [place], [address] CL Normal 98-108 [facility] Comment on above: Result Comment: Canc elled via OM: Order cancelled - Patient discharged Performed By: #### L 500.2500, L100.0100 ####[facility] [address] [place], [address] CO2 Normal 21.0-32.0 [facility] Comment on above: Result Comment: Canc elled via OM: Order cancelled - Patient discharged Performed By: #### L 500.2500, L100.0100 ####[facility] [address] [place], [address] CREAT,SERUM Normal 0.70-1.20 [facility] Comment on above: Result Comment: Canc elled via OM: Order cancelled - Patient discharged Performed By: #### L 500.2500, L100.0100 ####[facility] [address] [place], [address] eGFR Normal >60 [facility] Comment on above: Result Comment: Canc elled via OM: Order cancelled - Patient discharged Performed By: #### L 500.2500, L100.0100 ####[facility] [address] [place], [address] GAP Normal 5-15 [facility] Comment on above: Result Comment: Canc elled via OM: Order cancelled - Patient discharged Performed By: #### L 500.2500, L100.0100 ####[facility] [address] [place], [address] GLU Normal 70-99 [facility] Comment on above: Result Comment: Canc elled via OM: Order cancelled - Patient discharged Performed By: #### L 500.2500, L100.0100 ####[facility] [address] [place], [address] Potassium Normal 3.3-5.1 [facility] Comment on above: Result Comment: Canc elled via OM: Order cancelled - Patient discharged Performed By: #### L 500.2500, L100.0100 ####[facility] [address] [place], [address] Basic Metabolic Profile (BMP) Normal 133-145 [facility] Comment on above: Result Comment: Canc elled via OM: Order cancelled - Patient discharged Performed By: #### L 500.2500, L100.0100 ####[facility] [address] [place], [address] CBC W/Diff, Automatedon - Absolute Neut Normal 2.0-7.7 [facility] Comment on above: Result Comment: Canc elled via OM: Order cancelled - Patient discharged Performed By: #### L 500.2500, L100.0100 ####[facility] [address] [place], [address] HCT Normal 40-54 [facility] Comment on above: Result Comment: Canc elled via OM: Order cancelled - Patient discharged Performed By: #### L 500.2500, L100.0100 ####[facility] [address] [place], [address] HGB Normal 13.0-16.5 [facility] Comment on above: Result Comment: Canc elled via OM: Order cancelled - Patient discharged Performed By: #### L 500.2500, L100.0100 ####[facility] [address] [place], [address] MCH Normal 27.0-32.0 [facility] Comment on above: Result Comment: Canc elled via OM: Order cancelled - Patient discharged Performed By: #### L 500.2500, L100.0100 ####[facility] [address] [place], [address] MCHC Normal 32-36 [facility] Comment on above: Result Comment: Canc elled via OM: Order cancelled - Patient discharged Performed By: #### L 500.2500, L100.0100 ####[facility] [address] [place], [address] MCV Normal 80-94 [facility] Comment on above: Result Comment: Canc elled via OM: Order cancelled - Patient discharged Performed By: #### L 500.2500, L100.0100 ####[facility] [address] [place], [address] NEUT% Normal 47-70 [facility] Comment on above: Result Comment: Canc elled via OM: Order cancelled - Patient discharged Performed By: #### L 500.2500, L100.0100 ####[facility] [address] [place], [address] PLT Normal 150-450 [facility] Comment on above: Result Comment: Canc elled via OM: Order cancelled - Patient discharged Performed By: #### L 500.2500, L100.0100 ####[facility] [address] [place], [address] RBC Normal 4.6-6.2 [facility] Comment on above: Result Comment: Canc elled via OM: Order cancelled - Patient discharged Performed By: #### L 500.2500, L100.0100 ####[facility] [address] [place], [address] RDW CV Normal 11.6-14.6 [facility] Comment on above: Result Comment: Canc elled via OM: Order cancelled - Patient discharged Performed By: #### L 500.2500, L100.0100 ####[facility] [address] [place], [address] RDW SD Normal 35.1-43.9 [facility] Comment on above: Result Comment: Canc elled via OM: Order cancelled - Patient discharged Performed By: #### L 500.2500, L100.0100 ####[facility] [address] [place], [address] WBC Normal 4.4-11.0 [facility] Comment on above: Result Comment: Canc elled via OM: Order cancelled - Patient discharged Performed By: #### L 500.2500, L100.0100 ####[facility] [address] [place], [address] Basic Metabolic Profile (BMP )on 05-07-2025 BUN Normal 4-19 [facility] Comment on above: Result Comment: Canc elled via OM: Order cancelled - Patient discharged Performed By: #### L 500.2500, L100.0100 ####[facility] [address] [place], [address] BUN/CRE Normal 10-20 [facility] Comment on above: Result Comment: Canc elled via OM: Order cancelled - Patient discharged Performed By: #### L 500.2500, L100.0100 ####[facility] [address] [place], [address] Calcium Normal 7.6-11.0 [facility] Comment on above: Result Comment: Canc elled via OM: Order cancelled - Patient discharged Performed By: #### L 500.2500, L100.0100 ####[facility] [address] [place], [address] CL Normal 98-108 [facility] Comment on above: Result Comment: Canc elled via OM: Order cancelled - Patient discharged Performed By: #### L 500.2500, L100.0100 ####[facility] [address] [place], [address] CO2 Normal 21.0-32.0 [facility] Comment on above: Result Comment: Canc elled via OM: Order cancelled - Patient discharged Performed By: #### L 500.2500, L100.0100 ####[facility] [address] [place], [address] CREAT,SERUM Normal 0.70-1.20 [facility] Comment on above: Result Comment: Canc elled via OM: Order cancelled - Patient discharged Performed By: #### L 500.2500, L100.0100 ####[facility] [address] [place], [address] eGFR Normal >60 [facility] Comment on above: Result Comment: Canc elled via OM: Order cancelled - Patient discharged Performed By: #### L 500.2500, L100.0100 ####[facility] [address] [place], [address] GAP Normal 5-15 [facility] Comment on above: Result Comment: Canc elled via OM: Order cancelled - Patient discharged Performed By: #### L 500.2500, L100.0100 ####[facility] [address] [place], [address] GLU Normal 70-99 [facility] Comment on above: Result Comment: Canc elled via OM: Order cancelled - Patient discharged Performed By: #### L 500.2500, L100.0100 ####[facility] [address] [place], [address] Potassium Normal 3.3-5.1 [facility] Comment on above: Result Comment: Canc elled via OM: Order cancelled - Patient discharged Performed By: #### L 500.2500, L100.0100 ####[facility] [address] [place], [address] Basic Metabolic Profile (BMP) Normal 133-145 [facility] Comment on above: Result Comment: Canc elled via OM: Order cancelled - Patient discharged Performed By: #### L 500.2500, L100.0100 ####[facility] [address] [place], [address] CBC W/Diff, Automatedon 04-20 Absolute Neut Normal 2.0-7.7 [facility] Comment on above: Result Comment: Canc elled via OM: Order cancelled - Patient discharged Performed By: #### L 500.2500, L100.0100 ####[facility] [address] [place], [address] HCT Normal 40-54 [facility] Comment on above: Result Comment: Canc elled via OM: Order cancelled - Patient discharged Performed By: #### L 500.2500, L100.0100 ####[facility] [address] [place], [address] HGB Normal 13.0-16.5 [facility] Comment on above: Result Comment: Canc elled via OM: Order cancelled - Patient discharged Performed By: #### L 500.2500, L100.0100 ####[facility] [address] [place], [address] MCH Normal 27.0-32.0 [facility] Comment on above: Result Comment: Canc elled via OM: Order cancelled - Patient discharged Performed By: #### L 500.2500, L100.0100 ####[facility] [address] [place], [address] MCHC Normal 32-36 [facility] Comment on above: Result Comment: Canc elled via OM: Order cancelled - Patient discharged Performed By: #### L 500.2500, L100.0100 ####[facility] [address] [place], [address] MCV Normal 80-94 [facility] Comment on above: Result Comment: Canc elled via OM: Order cancelled - Patient discharged Performed By: #### L 500.2500, L100.0100 ####[facility] [address] [place], [address] NEUT% Normal 47-70 [facility] Comment on above: Result Comment: Canc elled via OM: Order cancelled - Patient discharged Performed By: #### L 500.2500, L100.0100 ####[facility] [address] [place], [address] PLT Normal 150-450 [facility] Comment on above: Result Comment: Canc elled via OM: Order cancelled - Patient discharged Performed By: #### L 500.2500, L100.0100 ####[facility] [address] [place], [address] RBC Normal 4.6-6.2 [facility] Comment on above: Result Comment: Canc elled via OM: Order cancelled - Patient discharged Performed By: #### L 500.2500, L100.0100 ####[facility] [address] [place], [address] RDW CV Normal 11.6-14.6 [facility] Comment on above: Result Comment: Canc elled via OM: Order cancelled - Patient discharged Performed By: #### L 500.2500, L100.0100 ####[facility] [address] [place], [address] RDW SD Normal 35.1-43.9 [facility] Comment on above: Result Comment: Canc elled via OM: Order cancelled - Patient discharged Performed By: #### L 500.2500, L100.0100 ####[facility] [address] [place], [address] WBC Normal 4.4-11.0 [facility] Comment on above: Result Comment: Canc elled via OM: Order cancelled - Patient discharged Performed By: #### L 500.2500, L100.0100 ####[facility] [address] [place], [address] Basic Metabolic Profile (BMP )on 05-06-2025 BUN Normal 4-19 [facility] Comment on above: Result Comment: Canc elled via OM: Order cancelled - Patient discharged Performed By: #### L 100.0100, L500.2500 ####[facility] [address] [place], [address] BUN/CRE Normal 10-20 [facility] Comment on above: Result Comment: Canc elled via OM: Order cancelled - Patient discharged Performed By: #### L 100.0100, L500.2500 ####[facility] [address] [place], [address] Calcium Normal 7.6-11.0 [facility] Comment on above: Result Comment: Canc elled via OM: Order cancelled - Patient discharged Performed By: #### L 100.0100, L500.2500 ####[facility] [address] [place], [address] CL Normal 98-108 [facility] Comment on above: Result Comment: Canc elled via OM: Order cancelled - Patient discharged Performed By: #### L 100.0100, L500.2500 ####[facility] [address] [place], [address] CO2 Normal 21.0-32.0 [facility] Comment on above: Result Comment: Canc elled via OM: Order cancelled - Patient discharged Performed By: #### L 100.0100, L500.2500 ####[facility] [address] [place], [address] CREAT,SERUM Normal 0.70-1.20 [facility] Comment on above: Result Comment: Canc elled via OM: Order cancelled - Patient discharged Performed By: #### L 100.0100, L500.2500 ####[facility] [address] [place], [address] eGFR Normal >60 [facility] Comment on above: Result Comment: Canc elled via OM: Order cancelled - Patient discharged Performed By: #### L 100.0100, L500.2500 ####[facility] [address] [place], [address] GAP Normal 5-15 [facility] Comment on above: Result Comment: Canc elled via OM: Order cancelled - Patient discharged Performed By: #### L 100.0100, L500.2500 ####[facility] [address] [place], [address] GLU Normal 70-99 [facility] Comment on above: Result Comment: Canc elled via OM: Order cancelled - Patient discharged Performed By: #### L 100.0100, L500.2500 ####[facility] [address] [place], [address] Potassium Normal 3.3-5.1 [facility] Comment on above: Result Comment: Canc elled via OM: Order cancelled - Patient discharged Performed By: #### L 100.0100, L500.2500 ####[facility] [address] [place], [address] Basic Metabolic Profile (BMP) Normal 133-145 [facility] Comment on above: Result Comment: Canc elled via OM: Order cancelled - Patient discharged Performed By: #### L 100.0100, L500.2500 ####[facility] [address] [place], [address] CBC W/Diff, Automatedon 09- Absolute Neut Normal 2.0-7.7 [facility] Comment on above: Result Comment: Canc elled via OM: Order cancelled - Patient discharged Performed By: #### L 100.0100, L500.2500 ####[facility] [address] [place], [address] HCT Normal 40-54 [facility] Comment on above: Result Comment: Canc elled via OM: Order cancelled - Patient discharged Performed By: #### L 100.0100, L500.2500 ####[facility] [address] [place], [address] HGB Normal 13.0-16.5 [facility] Comment on above: Result Comment: Canc elled via OM: Order cancelled - Patient discharged Performed By: #### L 100.0100, L500.2500 ####[facility] [address] [place], [address] MCH Normal 27.0-32.0 [facility] Comment on above: Result Comment: Canc elled via OM: Order cancelled - Patient discharged Performed By: #### L 100.0100, L500.2500 ####[facility] [address] [place], [address] MCHC Normal 32-36 [facility] Comment on above: Result Comment: Canc elled via OM: Order cancelled - Patient discharged Performed By: #### L 100.0100, L500.2500 ####[facility] [address] [place], [address] MCV Normal 80-94 [facility] Comment on above: Result Comment: Canc elled via OM: Order cancelled - Patient discharged Performed By: #### L 100.0100, L500.2500 ####[facility] [address] [place], [address] NEUT% Normal 47-70 [facility] Comment on above: Result Comment: Canc elled via OM: Order cancelled - Patient discharged Performed By: #### L 100.0100, L500.2500 ####[facility] [address] [place], [address] PLT Normal 150-450 [facility] Comment on above: Result Comment: Canc elled via OM: Order cancelled - Patient discharged Performed By: #### L 100.0100, L500.2500 ####[facility] [address] [place], [address] RBC Normal 4.6-6.2 [facility] Comment on above: Result Comment: Canc elled via OM: Order cancelled - Patient discharged Performed By: #### L 100.0100, L500.2500 ####[facility] [address] [place], [address] RDW CV Normal 11.6-14.6 [facility] Comment on above: Result Comment: Canc elled via OM: Order cancelled - Patient discharged Performed By: #### L 100.0100, L500.2500 ####[facility] [address] [place], [address] RDW SD Normal 35.1-43.9 [facility] Comment on above: Result Comment: Canc elled via OM: Order cancelled - Patient discharged Performed By: #### L 100.0100, L500.2500 ####[facility] [address] [place], [address] WBC Normal 4.4-11.0 [facility] Comment on above: Result Comment: Canc elled via OM: Order cancelled - Patient discharged Performed By: #### L 100.0100, L500.2500 ####[facility] [address] [place], [address] Basic Metabolic Profile (BMP )on 05-05-2025 BUN Normal 4-19 [facility] Comment on above: Result Comment: Canc elled via OM: Order cancelled - Patient discharged Performed By: #### L 500.2500, L100.0100 ####[facility] [address] [place], [address] BUN/CRE Normal 10-20 [facility] Comment on above: Result Comment: Canc elled via OM: Order cancelled - Patient discharged Performed By: #### L 500.2500, L100.0100 ####[facility] [address] [place], [address] Calcium Normal 7.6-11.0 [facility] Comment on above: Result Comment: Canc elled via OM: Order cancelled - Patient discharged Performed By: #### L 500.2500, L100.0100 ####[facility] [address] [place], [address] CL Normal 98-108 [facility] Comment on above: Result Comment: Canc elled via OM: Order cancelled - Patient discharged Performed By: #### L 500.2500, L100.0100 ####[facility] [address] [place], [address] CO2 Normal 21.0-32.0 [facility] Comment on above: Result Comment: Canc elled via OM: Order cancelled - Patient discharged Performed By: #### L 500.2500, L100.0100 ####[facility] [address] [place], [address] CREAT,SERUM Normal 0.70-1.20 [facility] Comment on above: Result Comment: Canc elled via OM: Order cancelled - Patient discharged Performed By: #### L 500.2500, L100.0100 ####[facility] [address] [place], [address] eGFR Normal >60 [facility] Comment on above: Result Comment: Canc elled via OM: Order cancelled - Patient discharged Performed By: #### L 500.2500, L100.0100 ####[facility] [address] [place], [address] GAP Normal 5-15 [facility] Comment on above: Result Comment: Canc elled via OM: Order cancelled - Patient discharged Performed By: #### L 500.2500, L100.0100 ####[facility] [address] [place], [address] GLU Normal 70-99 [facility] Comment on above: Result Comment: Canc elled via OM: Order cancelled - Patient discharged Performed By: #### L 500.2500, L100.0100 ####[facility] [address] [place], [address] Potassium Normal 3.3-5.1 [facility] Comment on above: Result Comment: Canc elled via OM: Order cancelled - Patient discharged Performed By: #### L 500.2500, L100.0100 ####[facility] [address] [place], [address] Basic Metabolic Profile (BMP) Normal 133-145 [facility] Comment on above: Result Comment: Canc elled via OM: Order cancelled - Patient discharged Performed By: #### L 500.2500, L100.0100 ####[facility] [address] [place], [address] CBC W/Diff, Automatedon 09-1 -2024 Absolute Neut Normal 2.0-7.7 [facility] Comment on above: Result Comment: Canc elled via OM: Order cancelled - Patient discharged Performed By: #### L 500.2500, L100.0100 ####[facility] [address] [place], [address] HCT Normal 40-54 [facility] Comment on above: Result Comment: Canc elled via OM: Order cancelled - Patient discharged Performed By: #### L 500.2500, L100.0100 ####[facility] [address] [place], [address] HGB Normal 13.0-16.5 [facility] Comment on above: Result Comment: Canc elled via OM: Order cancelled - Patient discharged Performed By: #### L 500.2500, L100.0100 ####[facility] [address] [place], [address] MCH Normal 27.0-32.0 [facility] Comment on above: Result Comment: Canc elled via OM: Order cancelled - Patient discharged Performed By: #### L 500.2500, L100.0100 ####[facility] [address] [place], [address] MCHC Normal 32-36 [facility] Comment on above: Result Comment: Canc elled via OM: Order cancelled - Patient discharged Performed By: #### L 500.2500, L100.0100 ####[facility] [address] [place], [address] MCV Normal 80-94 [facility] Comment on above: Result Comment: Canc elled via OM: Order cancelled - Patient discharged Performed By: #### L 500.2500, L100.0100 ####[facility] [address] [place], [address] NEUT% Normal 47-70 [facility] Comment on above: Result Comment: Canc elled via OM: Order cancelled - Patient discharged Performed By: #### L 500.2500, L100.0100 ####[facility] [address] [place], [address] PLT Normal 150-450 [facility] Comment on above: Result Comment: Canc elled via OM: Order cancelled - Patient discharged Performed By: #### L 500.2500, L100.0100 ####[facility] [address] [place], [address] RBC Normal 4.6-6.2 [facility] Comment on above: Result Comment: Canc elled via OM: Order cancelled - Patient discharged Performed By: #### L 500.2500, L100.0100 ####[facility] [address] [place], [address] RDW CV Normal 11.6-14.6 [facility] Comment on above: Result Comment: Canc elled via OM: Order cancelled - Patient discharged Performed By: #### L 500.2500, L100.0100 ####[facility] [address] [place], [address] RDW SD Normal 35.1-43.9 [facility] Comment on above: Result Comment: Canc elled via OM: Order cancelled - Patient discharged Performed By: #### L 500.2500, L100.0100 ####[facility] [address] [place], [address] WBC Normal 4.4-11.0 [facility] Comment on above: Result Comment: Canc elled via OM: Order cancelled - Patient discharged Performed By: #### L 500.2500, L100.0100 ####[facility] [address] [place], [address] Basic Metabolic Profile (BMP )on 05-04-2025 BUN Normal 4-19 [facility] Comment on above: Result Comment: Canc elled via OM: Order cancelled - Patient discharged Performed By: #### L 500.2500, L100.0100 ####[facility] [address] [place], [address] BUN/CRE Normal 10-20 [facility] Comment on above: Result Comment: Canc elled via OM: Order cancelled - Patient discharged Performed By: #### L 500.2500, L100.0100 ####[facility] [address] [place], [address] Calcium Normal 7.6-11.0 [facility] Comment on above: Result Comment: Canc elled via OM: Order cancelled - Patient discharged Performed By: #### L 500.2500, L100.0100 ####[facility] [address] [place], [address] CL Normal 98-108 [facility] Comment on above: Result Comment: Canc elled via OM: Order cancelled - Patient discharged Performed By: #### L 500.2500, L100.0100 ####[facility] [address] [place], [address] CO2 Normal 21.0-32.0 [facility] Comment on above: Result Comment: Canc elled via OM: Order cancelled - Patient discharged Performed By: #### L 500.2500, L100.0100 ####[facility] [address] [place], [address] CREAT,SERUM Normal 0.70-1.20 [facility] Comment on above: Result Comment: Canc elled via OM: Order cancelled - Patient discharged Performed By: #### L 500.2500, L100.0100 ####[facility] [address] [place], [address] eGFR Normal >60 [facility] Comment on above: Result Comment: Canc elled via OM: Order cancelled - Patient discharged Performed By: #### L 500.2500, L100.0100 ####[facility] [address] [place], [address] GAP Normal 5-15 [facility] Comment on above: Result Comment: Canc elled via OM: Order cancelled - Patient discharged Performed By: #### L 500.2500, L100.0100 ####[facility] [address] [place], [address] GLU Normal 70-99 [facility] Comment on above: Result Comment: Canc elled via OM: Order cancelled - Patient discharged Performed By: #### L 500.2500, L100.0100 ####[facility] [address] [place], [address] Potassium Normal 3.3-5.1 [facility] Comment on above: Result Comment: Canc elled via OM: Order cancelled - Patient discharged Performed By: #### L 500.2500, L100.0100 ####[facility] [address] [place], [address] Basic Metabolic Profile (BMP) Normal 133-145 [facility] Comment on above: Result Comment: Canc elled via OM: Order cancelled - Patient discharged Performed By: #### L 500.2500, L100.0100 ####[facility] [address] [place], [address] CBC W/Diff, Automatedon - Absolute Neut Normal 2.0-7.7 [facility] Comment on above: Result Comment: Canc elled via OM: Order cancelled - Patient discharged Performed By: #### L 500.2500, L100.0100 ####[facility] [address] [place], [address] HCT Normal 40-54 [facility] Comment on above: Result Comment: Canc elled via OM: Order cancelled - Patient discharged Performed By: #### L 500.2500, L100.0100 ####[facility] [address] [place], [address] HGB Normal 13.0-16.5 [facility] Comment on above: Result Comment: Canc elled via OM: Order cancelled - Patient discharged Performed By: #### L 500.2500, L100.0100 ####[facility] [address] [place], [address] MCH Normal 27.0-32.0 [facility] Comment on above: Result Comment: Canc elled via OM: Order cancelled - Patient discharged Performed By: #### L 500.2500, L100.0100 ####[facility] [address] [place], [address] MCHC Normal 32-36 [facility] Comment on above: Result Comment: Canc elled via OM: Order cancelled - Patient discharged Performed By: #### L 500.2500, L100.0100 ####[facility] [address] [place], [address] MCV Normal 80-94 [facility] Comment on above: Result Comment: Canc elled via OM: Order cancelled - Patient discharged Performed By: #### L 500.2500, L100.0100 ####[facility] [address] [place], [address] NEUT% Normal 47-70 [facility] Comment on above: Result Comment: Canc elled via OM: Order cancelled - Patient discharged Performed By: #### L 500.2500, L100.0100 ####[facility] [address] [place], [address] PLT Normal 150-450 [facility] Comment on above: Result Comment: Canc elled via OM: Order cancelled - Patient discharged Performed By: #### L 500.2500, L100.0100 ####[facility] [address] [place], [address] RBC Normal 4.6-6.2 [facility] Comment on above: Result Comment: Canc elled via OM: Order cancelled - Patient discharged Performed By: #### L 500.2500, L100.0100 ####[facility] [address] [place], [address] RDW CV Normal 11.6-14.6 [facility] Comment on above: Result Comment: Canc elled via OM: Order cancelled - Patient discharged Performed By: #### L 500.2500, L100.0100 ####[facility] [address] [place], [address] RDW SD Normal 35.1-43.9 [facility] Comment on above: Result Comment: Canc elled via OM: Order cancelled - Patient discharged Performed By: #### L 500.2500, L100.0100 ####[facility] [address] [place], [address] WBC Normal 4.4-11.0 [facility] Comment on above: Result Comment: Canc elled via OM: Order cancelled - Patient discharged Performed By: #### L 500.2500, L100.0100 ####[facility] [address] [place], [address] Basic Metabolic Profile (BMP )on 05-02-2025 BUN Normal 4-19 [facility] Comment on above: Result Comment: Canc elled via OM: Order cancelled - Patient discharged Performed By: #### L 500.2500, L100.0100 ####[facility] [address] [place], [address] BUN/CRE Normal 10-20 [facility] Comment on above: Result Comment: Canc elled via OM: Order cancelled - Patient discharged Performed By: #### L 500.2500, L100.0100 ####[facility] [address] [place], [address] Calcium Normal 7.6-11.0 [facility] Comment on above: Result Comment: Canc elled via OM: Order cancelled - Patient discharged Performed By: #### L 500.2500, L100.0100 ####[facility] [address] [place], [address] CL Normal 98-108 [facility] Comment on above: Result Comment: Canc elled via OM: Order cancelled - Patient discharged Performed By: #### L 500.2500, L100.0100 ####[facility] [address] [place], [address] CO2 Normal 21.0-32.0 [facility] Comment on above: Result Comment: Canc elled via OM: Order cancelled - Patient discharged Performed By: #### L 500.2500, L100.0100 ####[facility] [address] [place], [address] CREAT,SERUM Normal 0.70-1.20 [facility] Comment on above: Result Comment: Canc elled via OM: Order cancelled - Patient discharged Performed By: #### L 500.2500, L100.0100 ####[facility] [address] [place], [address] eGFR Normal >60 [facility] Comment on above: Result Comment: Canc elled via OM: Order cancelled - Patient discharged Performed By: #### L 500.2500, L100.0100 ####[facility] [address] [place], [address] GAP Normal 5-15 [facility] Comment on above: Result Comment: Canc elled via OM: Order cancelled - Patient discharged Performed By: #### L 500.2500, L100.0100 ####[facility] [address] [place], [address] GLU Normal 70-99 [facility] Comment on above: Result Comment: Canc elled via OM: Order cancelled - Patient discharged Performed By: #### L 500.2500, L100.0100 ####[facility] [address] [place], [address] Potassium Normal 3.3-5.1 [facility] Comment on above: Result Comment: Canc elled via OM: Order cancelled - Patient discharged Performed By: #### L 500.2500, L100.0100 ####[facility] [address] [place], [address] Basic Metabolic Profile (BMP) Normal 133-145 [facility] Comment on above: Result Comment: Canc elled via OM: Order cancelled - Patient discharged Performed By: #### L 500.2500, L100.0100 ####[facility] [address] [place], [address] CBC W/Diff, Automatedon 04-20 Absolute Neut Normal 2.0-7.7 [facility] Comment on above: Result Comment: Canc elled via OM: Order cancelled - Patient discharged Performed By: #### L 500.2500, L100.0100 ####[facility] [address] [place], [address] HCT Normal 40-54 [facility] Comment on above: Result Comment: Canc elled via OM: Order cancelled - Patient discharged Performed By: #### L 500.2500, L100.0100 ####[facility] [address] [place], [address] HGB Normal 13.0-16.5 [facility] Comment on above: Result Comment: Canc elled via OM: Order cancelled - Patient discharged Performed By: #### L 500.2500, L100.0100 ####[facility] [address] [place], [address] MCH Normal 27.0-32.0 [facility] Comment on above: Result Comment: Canc elled via OM: Order cancelled - Patient discharged Performed By: #### L 500.2500, L100.0100 ####[facility] [address] [place], [address] MCHC Normal 32-36 [facility] Comment on above: Result Comment: Canc elled via OM: Order cancelled - Patient discharged Performed By: #### L 500.2500, L100.0100 ####[facility] [address] [place], [address] MCV Normal 80-94 [facility] Comment on above: Result Comment: Canc elled via OM: Order cancelled - Patient discharged Performed By: #### L 500.2500, L100.0100 ####[facility] [address] [place], [address] NEUT% Normal 47-70 [facility] Comment on above: Result Comment: Canc elled via OM: Order cancelled - Patient discharged Performed By: #### L 500.2500, L100.0100 ####[facility] [address] [place], [address] PLT Normal 150-450 [facility] Comment on above: Result Comment: Canc elled via OM: Order cancelled - Patient discharged Performed By: #### L 500.2500, L100.0100 ####[facility] [address] [place], [address] RBC Normal 4.6-6.2 [facility] Comment on above: Result Comment: Canc elled via OM: Order cancelled - Patient discharged Performed By: #### L 500.2500, L100.0100 ####[facility] [address] [place], [address] RDW CV Normal 11.6-14.6 [facility] Comment on above: Result Comment: Canc elled via OM: Order cancelled - Patient discharged Performed By: #### L 500.2500, L100.0100 ####[facility] [address] [place], [address] RDW SD Normal 35.1-43.9 [facility] Comment on above: Result Comment: Canc elled via OM: Order cancelled - Patient discharged Performed By: #### L 500.2500, L100.0100 ####[facility] [address] [place], [address] WBC Normal 4.4-11.0 [facility] Comment on above: Result Comment: Canc elled via OM: Order cancelled - Patient discharged Performed By: #### L 500.2500, L100.0100 ####[facility] [address] [place], [address] Basic Metabolic Profile (BMP )on 04-25-2025 BUN Normal 4-19 [facility] Comment on above: Result Comment: Canc elled via OM: Order cancelled - Patient discharged Performed By: #### L 100.0100, L500.2500 ####[facility] [address] [place], [address] BUN/CRE Normal 10-20 [facility] Comment on above: Result Comment: Canc elled via OM: Order cancelled - Patient discharged Performed By: #### L 100.0100, L500.2500 ####[facility] [address] [place], [address] Calcium Normal 7.6-11.0 [facility] Comment on above: Result Comment: Canc elled via OM: Order cancelled - Patient discharged Performed By: #### L 100.0100, L500.2500 ####[facility] [address] [place], [address] CL Normal 98-108 [facility] Comment on above: Result Comment: Canc elled via OM: Order cancelled - Patient discharged Performed By: #### L 100.0100, L500.2500 ####[facility] [address] [place], [address] CO2 Normal 21.0-32.0 [facility] Comment on above: Result Comment: Canc elled via OM: Order cancelled - Patient discharged Performed By: #### L 100.0100, L500.2500 ####[facility] [address] [place], [address] CREAT,SERUM Normal 0.70-1.20 [facility] Comment on above: Result Comment: Canc elled via OM: Order cancelled - Patient discharged Performed By: #### L 100.0100, L500.2500 ####[facility] [address] [place], [address] eGFR Normal >60 [facility] Comment on above: Result Comment: Canc elled via OM: Order cancelled - Patient discharged Performed By: #### L 100.0100, L500.2500 ####[facility] [address] [place], [address] GAP Normal 5-15 [facility] Comment on above: Result Comment: Canc elled via OM: Order cancelled - Patient discharged Performed By: #### L 100.0100, L500.2500 ####[facility] [address] [place], [address] GLU Normal 70-99 [facility] Comment on above: Result Comment: Canc elled via OM: Order cancelled - Patient discharged Performed By: #### L 100.0100, L500.2500 ####[facility] [address] [place], [address] Potassium Normal 3.3-5.1 [facility] Comment on above: Result Comment: Canc elled via OM: Order cancelled - Patient discharged Performed By: #### L 100.0100, L500.2500 ####[facility] [address] [place], [address] Basic Metabolic Profile (BMP) Normal 133-145 [facility] Comment on above: Result Comment: Canc elled via OM: Order cancelled - Patient discharged Performed By: #### L 100.0100, L500.2500 ####[facility] [address] [place], [address] CBC W/Diff, Automatedon 09-0 6-2024 Absolute Neut Normal 2.0-7.7 [facility] Comment on above: Result Comment: Canc elled via OM: Order cancelled - Patient discharged Performed By: #### L 100.0100, L500.2500 ####[facility] [address] [place], [address] HCT Normal 40-54 [facility] Comment on above: Result Comment: Canc elled via OM: Order cancelled - Patient discharged Performed By: #### L 100.0100, L500.2500 ####[facility] [address] [place], [address] HGB Normal 13.0-16.5 [facility] Comment on above: Result Comment: Canc elled via OM: Order cancelled - Patient discharged Performed By: #### L 100.0100, L500.2500 ####[facility] [address] [place], [address] MCH Normal 27.0-32.0 [facility] Comment on above: Result Comment: Canc elled via OM: Order cancelled - Patient discharged Performed By: #### L 100.0100, L500.2500 ####[facility] [address] [place], [address] MCHC Normal 32-36 [facility] Comment on above: Result Comment: Canc elled via OM: Order cancelled - Patient discharged Performed By: #### L 100.0100, L500.2500 ####[facility] [address] [place], [address] MCV Normal 80-94 [facility] Comment on above: Result Comment: Canc elled via OM: Order cancelled - Patient discharged Performed By: #### L 100.0100, L500.2500 ####[facility] [address] [place], [address] NEUT% Normal 47-70 [facility] Comment on above: Result Comment: Canc elled via OM: Order cancelled - Patient discharged Performed By: #### L 100.0100, L500.2500 ####[facility] [address] [place], [address] PLT Normal 150-450 [facility] Comment on above: Result Comment: Canc elled via OM: Order cancelled - Patient discharged Performed By: #### L 100.0100, L500.2500 ####[facility] [address] [place], [address] RBC Normal 4.6-6.2 [facility] Comment on above: Result Comment: Canc elled via OM: Order cancelled - Patient discharged Performed By: #### L 100.0100, L500.2500 ####[facility] [address] [place], [address] RDW CV Normal 11.6-14.6 [facility] Comment on above: Result Comment: Canc elled via OM: Order cancelled - Patient discharged Performed By: #### L 100.0100, L500.2500 ####[facility] [address] [place], [address] RDW SD Normal 35.1-43.9 [facility] Comment on above: Result Comment: Canc elled via OM: Order cancelled - Patient discharged Performed By: #### L 100.0100, L500.2500 ####[facility] [address] [place], [address] WBC Normal 4.4-11.0 [facility] Comment on above: Result Comment: Canc elled via OM: Order cancelled - Patient discharged Performed By: #### L 100.0100, L500.2500 ####[facility] [address] [place], [address] Basic Metabolic Profile (BMP )on 04-20-2025 BUN/CRE 22.4 RATIO High 10-20 [facility] Comment on above: Performed By: #### L 100.0500, L500.2500 ####[facility] [address] [place], [address] Calcium [Mass/Vol] 9.1 mg/dL Normal 7.6-11.0 [facility] Comment on above: Performed By: #### L 100.0500, L500.2500 ####[facility] [address] [place], [address] Chloride [Moles/Vol] 91 mmol/L Low 98-108 [facility] Comment on above: Performed By: #### L 100.0500, L500.2500 ####[facility] [address] [place], [address] CO2 [Moles/Vol] 32.1 mmol/L High 21.0-32.0 [facility] Comment on above: Performed By: #### L 100.0500, L500.2500 ####[facility] [address] [place], [address] Creatinine [Mass/Vol] 1.65 mg/dL High 0.70-1.20 [facility] Comment on above: Performed By: #### L 100.0500, L500.2500 ####[facility] [address] [place], [address] ECRCL 32.22 ml/min Low 50-250 [facility] Comment on above: Performed By: #### L 100.0500, L500.2500 ####[facility] [address] [place], [address] GAP 12 Normal 5-15 [facility] Comment on above: Performed By: #### L 100.0500, L500.2500 ####[facility] [address] [place], [address] GFR/1.73 sq M.predicted among non-blacks MDRD (S/P/Bld) [Vol rate/Area] 42 mL/min/{1.73_m2} Low >60 [facility] Comment on above: Result Comment: mL/m in/1.73m2 CKD-EPI Creatinine Equation (2020) Performed By: #### L 100.0500, L500.2500 ####[facility] [address] [place], [address] Glucose [Mass/Vol] 154 mg/dL High 70-99 [facility] Comment on above: Performed By: #### L 100.0500, L500.2500 ####[facility] [address] [place], [address] Potassium [Moles/Vol] 3.4 mmol/L Normal 3.3-5.1 [facility] Comment on above: Performed By: #### L 100.0500, L500.2500 ####[facility] [address] [place], [address] Sodium [Moles/Vol] 135 mmol/L Normal 133-145 [facility] Comment on above: Performed By: #### L 100.0500, L500.2500 ####[facility] [address] [place], [address] Urea nitrogen [Mass/Vol] 37 mg/dL High 4-19 [facility] Comment on above: Performed By: #### L 100.0500, L500.2500 ####[facility] [address] [place], [address] Bedside Glucoseon 04-20-2025 FINGERSTICK GLU 156 mg/dL High 74-106 [facility] Comment on above: Result Comment: KODY STRONG OF PATIENT CARE PER NURSING PROTOCOL Performed By: #### L 501.080 ####[facility] [address] [place], [address] CBC-Complete Blood Cnt No Di ffon 04-20-2025 Erythrocyte distribution width (RBC) [Ratio] 17.1 % High 11.6-14.6 [facility] Comment on above: Performed By: #### L 100.0500, L500.2500 ####[facility] [address] [place], [address] Hematocrit (Bld) [Volume fraction] 29.4 % Low 40-54 [facility] Comment on above: Performed By: #### L 100.0500, L500.2500 ####[facility] [address] [place], [address] Hemoglobin (Bld) [Mass/Vol] 9.1 g/dL Low 13.0-16.5 [facility] Comment on above: Performed By: #### L 100.0500, L500.2500 ####[facility] [address] [place], [address] MCH (RBC) [Entitic mass] 26.8 pg Low 27.0-32.0 [facility] Comment on above: Performed By: #### L 100.0500, L500.2500 ####[facility] [address] [place], [address] MCHC (RBC) [Mass/Vol] 31.0 g/dL Low 32-36 [facility] Comment on above: Performed By: #### L 100.0500, L500.2500 ####[facility] [address] [place], [address] MCV (RBC) [Entitic vol] 86.7 fL Normal 80-[address] [facility] Comment on above: Performed By: #### L 100.0500, L500.2500 ####[facility] [address] [place], [address] Platelet mean volume (Bld) [Entitic vol] 11.0 fL Normal 6.2-12.0 [facility] Comment on above: Performed By: #### L 100.0500, L500.2500 ####[facility] [address] [place], [address] Platelets (Bld) [#/Vol] 192 10*3/uL Normal 150-450 [facility] Comment on above: Performed By: #### L 100.0500, L500.2500 ####[facility] [address] [place], [address] RBC (Bld) [#/Vol] 3.39 10*6/uL Low 4.6-6.2 [facility] Comment on above: Performed By: #### L 100.0500, L500.2500 ####[facility] [address] [place], [address] RDW SD 53.4 fl High 35.1-43.9 [facility] Comment on above: Performed By: #### L 100.0500, L500.2500 ####[facility] [address] [place], [address] WBC (Bld) [#/Vol] 9.9 10*3/uL Normal 4.4-11.0 [facility] Comment on above: Performed By: #### L 100.0500, L500.2500 ####[facility] [address] [place], [address] Absolute lymphocyte countOrd ered By: Casper Iniguez on 04-19-2025 Lymphocytes Auto (Unsp spec) [#/Vol] 0.97 10*3/uL 0.83-4.51 [facility] Anion gap in Serum or Plasma Ordered By: Casper Iniguez on 04-19-2025 Anion gap [Moles/Vol] 11 mmol/L 5-15 [facility] Automated lymphocyte count a s percentage of total leukocytesOrdered By: Casper Iniguez on 04-19-2025 Lymphocytes/100 WBC Auto (Unsp spec) 9.1 % Low 19-41 [facility] BUN/creatinine ratioOrdered By: Casper Iniguez on 04-19-2025 Urea nitrogen/Creatinine [Mass ratio] 22.7 mg/mg High 10-20 [facility] Basophil percentageOrdered B y: Casper Iniguez on 04-19-2025 Basophils/100 WBC (Bld) 0.3 % 0-[address] [facility] Bedside Glucoseon 04-19-2025 FINGERSTICK GLU 178 mg/dL High 74-106 [facility] Comment on above: Result Comment: KODY GEMENT OF PATIENT CARE PER NURSING PROTOCOL Performed By: #### L 501.080 ####[facility] [address] [place], [address] FINGERSTICK GLU 193 mg/dL High 74-106 [facility] Comment on above: Result Comment: KODY GEMENT OF PATIENT CARE PER NURSING PROTOCOL Performed By: #### L 501.080 ####[facility] [address] [place], [address] FINGERSTICK GLU 91 mg/dL Normal 74-106 [facility] Comment on above: Result Comment: KODY GEMENT OF PATIENT CARE PER NURSING PROTOCOL Performed By: #### L 501.080 ####[facility] [address] [place], [address] FINGERSTICK GLU 123 mg/dL High 74-106 [facility] Comment on above: Result Comment: KODY GEMENT OF PATIENT CARE PER NURSING PROTOCOL Performed By: #### L 501.080 ####[facility] [address] [place], [address] Bilirubin, totalOrdered By: Casper Iniguez on 04-19-2025 Bilirubin [Mass/Vol] 0.55 mg/dL 0.00-1.30 [facility] CBC W/Diff, Automatedon 03-22 Absolute Lymph 0.97 X10 3/uL Normal 0.83-4.51 [facility] Comment on above: Performed By: #### L 500.4050, L100.0100, L501.4021 ####[facility] [address] [place], [address] Absolute Neut 8.0 X10 3/uL High 2.0-7.7 [facility] Comment on above: Performed By: #### L 500.4050, L100.0100, L501.4021 ####[facility] [address] [place], [address] Basophils/100 WBC (Bld) 0.3 % Normal 0-[address] [facility] Comment on above: Performed By: #### L 500.4050, L100.0100, L501.4021 ####[facility] [address] [place], [address] Eosinophils/100 WBC (Bld) 2.7 % Normal 0-5 [facility] Comment on above: Performed By: #### L 500.4050, L100.0100, L501.4021 ####[facility] [address] [place], [address] Erythrocyte distribution width (RBC) [Ratio] 17.2 % High 11.6-14.6 [facility] Comment on above: Performed By: #### L 500.4050, L100.0100, L501.4021 ####[facility] [address] [place], [address] Hematocrit (Bld) [Volume fraction] 30.6 % Low 40-54 [facility] Comment on above: Performed By: #### L 500.4050, L100.0100, L501.4021 ####[facility] [address] [place], [address] Hemoglobin (Bld) [Mass/Vol] 9.6 g/dL Low 13.0-16.5 [facility] Comment on above: Performed By: #### L 500.4050, L100.0100, L501.4021 ####[facility] [address] [place], [address] IG% 1.600 High 0.0-0.9 [facility] Comment on above: Result Comment: IG% - Immature Granulocytes (promyelocytes, myelocytes andmetamyelocytes) > 1% indicates that a LEFT SHIFT is Present. Performed By: #### L 500.4050, L100.0100, L501.4021 ####[facility] [address] [place], [address] Lymphocytes/100 WBC (Bld) 9.1 % Low 19-41 [facility] Comment on above: Performed By: #### L 500.4050, L100.0100, L501.4021 ####[facility] [address] [place], [address] MCH (RBC) [Entitic mass] 27.4 pg Normal 27.0-32.0 [facility] Comment on above: Performed By: #### L 500.4050, L100.0100, L501.4021 ####[facility] [address] [place], [address] MCHC (RBC) [Mass/Vol] 31.4 g/dL Low 32-36 [facility] Comment on above: Performed By: #### L 500.4050, L100.0100, L501.4021 ####[facility] [address] [place], [address] MCV (RBC) [Entitic vol] 87.2 fL Normal 80-94 [facility] Comment on above: Performed By: #### L 500.4050, L100.0100, L501.4021 ####[facility] [address] [place], [address] Monocytes/100 WBC (Bld) 11.3 % High 0-[address] [facility] Comment on above: Performed By: #### L 500.4050, L100.0100, L501.4021 ####[facility] [address] [place], [address] Neutrophils/100 WBC (Bld) 75.0 % High 47-70 [facility] Comment on above: Performed By: #### L 500.4050, L100.0100, L501.4021 ####[facility] [address] [place], [address] Nucleated RBC (Bld) [#/Vol] 0 10*3/uL Normal 0-5 [facility] Comment on above: Performed By: #### L 500.4050, L100.0100, L501.4021 ####[facility] [address] [place], [address] Platelet mean volume (Bld) [Entitic vol] 11.1 fL Normal 6.2-12.0 [facility] Comment on above: Performed By: #### L 500.4050, L100.0100, L501.4021 ####[facility] [address] [place], [address] Platelets (Bld) [#/Vol] 204 10*3/uL Normal 150-450 [facility] Comment on above: Performed By: #### L 500.4050, L100.0100, L501.4021 ####[facility] [address] [place], [address] RBC (Bld) [#/Vol] 3.51 10*6/uL Low 4.6-6.2 [facility] Comment on above: Performed By: #### L 500.4050, L100.0100, L501.4021 ####[facility] [address] [place], [address] RDW SD 54.8 fl High 35.1-43.9 [facility] Comment on above: Performed By: #### L 500.4050, L100.0100, L501.4021 ####[facility] [address] [place], [address] WBC (Bld) [#/Vol] 10.7 10*3/uL Normal 4.4-11.0 [facility] Comment on above: Performed By: #### L 500.4050, L100.0100, L501.4021 ####[facility] [address] [place], [address] Carbon dioxide, total [Moles /volume] in Central venous bloodOrdered By: Casper Iniguez on 04-19-2025 CO2 [Moles/Vol] 37.3 mmol/L High 21.0-32.0 [facility] Chest 1 View (Portable)on Chest 1 View (Portable) Normal [facility] Chloride assayOrdered By: Akin Iniguez on 04-19-2025 Chloride [Moles/Vol] 87 mmol/L Low 98-108 [facility] Comprehensive Metabolic Prof ilon 04-19-2025 Albumin [Mass/Vol] 3.4 g/dL Normal 3.4-4.8 [facility] Comment on above: Performed By: #### L 500.4050, L100.0100, L501.4021 ####[facility] [address] [place], [address] Albumin/Globulin [Mass ratio] 1.0 {ratio} Normal 0.9-2.4 [facility] Comment on above: Performed By: #### L 500.4050, L100.0100, L501.4021 ####[facility] [address] [place], [address] ALK PHOS 79 U/L Normal 40-129 [facility] Comment on above: Performed By: #### L 500.4050, L100.0100, L501.4021 ####[facility] [address] [place], [address] ALT [Catalytic activity/Vol] 27 U/L Normal <=46 [facility] Comment on above: Performed By: #### L 500.4050, L100.0100, L501.4021 ####[facility] [address] [place], [address] AST [Catalytic activity/Vol] 30 U/L Normal <=37 [facility] Comment on above: Performed By: #### L 500.4050, L100.0100, L501.4021 ####[facility] [address] [place], [address] Bilirubin [Mass/Vol] 0.55 mg/dL Normal 0.00-1.30 [facility] Comment on above: Performed By: #### L 500.4050, L100.0100, L501.4021 ####[facility] [address] [place], [address] BUN/CRE 22.7 RATIO High 10-20 [facility] Comment on above: Performed By: #### L 500.4050, L100.0100, L501.4021 ####[facility] [address] [place], [address] Calcium [Mass/Vol] 9.4 mg/dL Normal 7.6-11.0 [facility] Comment on above: Performed By: #### L 500.4050, L100.0100, L501.4021 ####[facility] [address] [place], [address] Chloride [Moles/Vol] 87 mmol/L Low 98-108 [facility] Comment on above: Performed By: #### L 500.4050, L100.0100, L501.4021 ####[facility] [address] [place], [address] CO2 [Moles/Vol] 37.3 mmol/L High 21.0-32.0 [facility] Comment on above: Performed By: #### L 500.4050, L100.0100, L501.4021 ####[facility] [address] [place], [address] Creatinine [Mass/Vol] 1.74 mg/dL High 0.70-1.20 [facility] Comment on above: Performed By: #### L 500.4050, L100.0100, L501.4021 ####[facility] [address] [place], [address] ECRCL 30.56 ml/min Low 50-250 [facility] Comment on above: Performed By: #### L 500.4050, L100.0100, L501.4021 ####[facility] [address] [place], [address] GAP 11 Normal 5-15 [facility] Comment on above: Performed By: #### L 500.4050, L100.0100, L501.4021 ####[facility] [address] [place], [address] GFR/1.73 sq M.predicted among non-blacks MDRD (S/P/Bld) [Vol rate/Area] 39 mL/min/{1.73_m2} Low >60 [facility] Comment on above: Result Comment: mL/m in/1.73m2 CKD-EPI Creatinine Equation (2020) Performed By: #### L 500.4050, L100.0100, L501.4021 ####[facility] [address] [place], [address] Globulin (S) [Mass/Vol] 3.4 g/dL Normal 2.2-4.2 [facility] Comment on above: Performed By: #### L 500.4050, L100.0100, L501.4021 ####[facility] [address] [place], [address] Glucose [Mass/Vol] 132 mg/dL High 70-99 [facility] Comment on above: Performed By: #### L 500.4050, L100.0100, L501.4021 ####[facility] [address] [place], [address] Potassium [Moles/Vol] 3.5 mmol/L Normal 3.3-5.1 [facility] Comment on above: Performed By: #### L 500.4050, L100.0100, L501.4021 ####[facility] [address] [place], [address] Sodium [Moles/Vol] 136 mmol/L Normal 133-145 [facility] Comment on above: Performed By: #### L 500.4050, L100.0100, L501.4021 ####[facility] [address] [place], [address] T PROT 6.8 g/dL Normal 5.9-8.4 [facility] Comment on above: Performed By: #### L 500.4050, L100.0100, L501.4021 ####[facility] [address] [place], [address] Urea nitrogen [Mass/Vol] 40 mg/dL High 4-19 [facility] Comment on above: Performed By: #### L 500.4050, L100.0100, L501.4021 ####[facility] [address] [place], [address] Emergency Department Summary on 04-19-2025 Emergency Department Summary Normal [facility] Eosinophil percentageOrdered By: Casper Iniguez on 04-19-2025 Eosinophils/100 WBC (Bld) 2.7 % 0-5 [facility] Erythrocyte distribution wid th ratioOrdered By: Casper Iniguez on 04-19-2025 Erythrocyte distribution width (RBC) [Ratio] 17.2 % High 11.6-14.6 [facility] Erythrocyte distribution wid th standard deviationOrdered By: Casper Iniguez on 04-19-2025 Erythrocyte distribution width (RBC) [Ratio] 54.8 fl High 35.1-43.9 [facility] Glomerular filtration rate ( GFR) estimation/1.73 sq m using serum, plasma, or whole bOrdered By: Casper Iniguez on 04-19-2025 GFR/1.73 sq M.predicted among non-blacks MDRD (S/P/Bld) [Vol rate/Area] 39 mL/min/{1.73_m2} Low >60 [facility]dered By: Valdez Olivo on 04-19-2025 Glucose [Mass/Vol] 123 mg/dL High 74-106 [facility] H AND P Exam - Hospitaliston 04-19-2025 H&P Exam - Hospitalist Normal [facility] Hematocrit Auto (Bld) [Volum e fraction]Ordered By: Casper Iniguez on 04-19-2025 Hematocrit (Bld) [Volume fraction] 30.6 % Low 40-54 [facility] Hemoglobin measurementOrdere d By: Casper Iniguez on 04-19-2025 Hemoglobin (Bld) [Mass/Vol] 9.6 g/dL Low 13.0-16.5 [facility] Immature granulocytes/100 WB C Auto (Bld)Ordered By: Casper Iniguez on 04-19-2025 Immature granulocytes/100 WBC (Bld) 1.600 % High 0.0-0.9 [facility] L501.4021on 04-19-2025 Trop T High Sen 99 ng/L Invalid Interpretation Code <=22 [facility] Comment on above: Result Comment: Crit ical Result(s) Called at 0923: by: RENAE ALICEA. ??Results read back by same. Performed By: #### L 500.4050, L100.0100, L501.4021 ####[facility] [address] [place], [place], [address] MCV (mean corpuscular volume ) determinationOrdered By: Casper Iniguez on 04-19-2025 MCV (RBC) [Entitic vol] 87.2 fL 80-[address] [facility] Magnesiumon 04-19-2025 Magnesium [Mass/Vol] 2.1 mg/dL Normal 1.5-2.2 [facility] Comment on above: Performed By: #### L 501.5200, L501.2300, L503.7505 ####[facility] [address] [place], [place], [address] Mean corpuscular hemoglobin (MCH) determinationOrdered By: Casper Iniguez on 04-19-2025 MCH (RBC) [Entitic mass] 27.4 pg 27.0-32.0 [facility] Monocyte percentageOrdered B y: Casper Iniguez on 04-19-2025 Monocytes/100 WBC (Bld) 11.3 % High 0-[address] [facility] Neutrophil percentageOrdered By: Casper Iniguez on 04-19-2025 Neutrophils/100 WBC (Bld) 75.0 % High 47-70 [facility] No Panel InformationOrdered By: Casper Iniguez on 04-19-2025 30 U/L <38 [facility] Phosphoruson 04-19-2025 Phosphate [Mass/Vol] 3.9 mg/dL Normal 2.7-4.5 [facility] Comment on above: Performed By: #### L 501.5200, L501.2300, L503.7500 ####[facility] [address] [place], [place], [address] Platelet countOrdered By: Akin Iniguez on 04-19-2025 Platelets (Bld) [#/Vol] 204 10*3/uL 150-450 [facility] Potassium measurement (mass/ volume)Ordered By: Casper Iniguez on 04-19-2025 Potassium (Unsp spec) [Mass/Vol] 3.5 mmol/L 3.3-5.1 [facility] Pro- Brain NATRIURETIC PEPTI Adrienne 04-19-2025 Natriuretic peptide B (Bld) [Mass/Vol] 3388 pg/mL High <=1800 [facility] Comment on above: Result Comment: Hear t Failure Unlikely: < 300 pg/mLHeart Failure Likely< 50 Years: > 450 pg/mL50-75 Years: > 900 pg/mL>75 Years: > 1800 pg/mL Performed By: #### L 501.5200, L501.2300, L503.7505 ####[facility] [address] [place], [place], [id number] RBC Auto (Bld) [#/Vol]Ordere d By: Casper Iniguez on 04-19-2025 RBC (Bld) [#/Vol] 3.51 10*6/uL Low 4.6-6.2 [facility] Serum creatinine measurement (mass/volume)Ordered By: Casper Iniguez on 04-19-2025 Creatinine [Mass/Vol] 1.74 mg/dL High 0.70-1.20 [facility] Serum globulin measurementOr dered By: Casper Iniguez on 04-19-2025 Globulin (S) [Mass/Vol] 3.4 g/dL 2.2-4.[address] [facility] Serum glucose measurement (m ass/volume)Ordered By: Casper Iniguez on 04-19-2025 Glucose [Mass/Vol] 132 mg/dL High 70-99 [facility] Serum or plasma alanine ortiz otransferase (ALT) measurementOrdered By: Casper Iniguez on 04-19-2025 ALT [Catalytic activity/Vol] 27 U/L <47 [facility] Serum or plasma albumin kingsley urement (mass/volume)Ordered By: Casper Iniguez on 04-19-2025 Albumin [Mass/Vol] 3.4 g/dL 3.4-4.8 [facility] Serum or plasma albumin/glob ulin mass ratioOrdered By: Casper Iniguez on 04-19-2025 Albumin/Globulin [Mass ratio] 1.0 {ratio} 0.9-2.4 [facility] Serum or plasma alkaline [place]osevelt sphatase measurementOrdered By: Casper Iniguez on 04-19-2025 ALP [Catalytic activity/Vol] 79 U/L 40-129 [facility] Serum or plasma calcium kingsley urement (mass/volume)Ordered By: Casper Iniguez on 04-19-2025 Calcium [Mass/Vol] 9.4 mg/dL 7.6-11.0 [facility] Serum or plasma urea nitroge n measurement (mass/volume)Ordered By: Casper Iniguez on 04-19-2025 Urea nitrogen [Mass/Vol] 40 mg/dL High 4-19 [facility] Sodium levelOrdered By: Rema Iniguez on 04-19-2025 Sodium [Moles/Vol] 136 mmol/L 133-145 [facility] Total proteinOrdered By: Shira Iniguez on 04-19-2025 Protein [Mass/Vol] 6.8 g/dL 5.9-8.4 [facility] Troponin T HS 2 HRon 025 Trop T High Sen 95 ng/L Invalid Interpretation Code <=22 [facility] Comment on above: Result Comment: Crit ical Result(s) Called at 1126: by: RENAE GIRON. ??Results read back by same. Performed By: #### L 499.0042 ####[facility] [address] [place], [address] Troponin T HS 4 HRon 025 Trop T High Sen 93 ng/L Invalid Interpretation Code <=22 [facility] Comment on above: Result Comment: Crit ical Result(s) Called at 1326: by: RENAE GIRON. ??Results read back by same. Performed By: #### L 499.0043 ####[facility] [address] [place], [place], [id number] Troponin T.cardiac [Mass/vol ume] in Serum or Plasma by High sensitivity methodOrdered By: Casper Iniguez on 04-19-2025 Troponin T.cardiac High sensitivity method [Mass/Vol] 99 ng/L High <22 [facility] White blood cell (WBC) count Ordered By: Casper Iniguez on 04-19-2025 WBC (Bld) [#/Vol] 10.7 10*3/uL 4.4-11.0 [facility] Absolute lymphocyte countOrd ered By: Valdez Olivo on 04-18-2025 Lymphocytes Auto (Unsp spec) [#/Vol] 0.61 10*3/uL Low 0.83-4.51 [facility] Anion gap in Serum or Plasma Ordered By: Valdez Oilvo on 04-18-2025 Anion gap [Moles/Vol] 12 mmol/L 5-15 [facility] Automated lymphocyte count a s percentage of total leukocytesOrdered By: Valdez Olivo on 04-18-2025 Lymphocytes/100 WBC Auto (Unsp spec) 6.2 % Low 19-41 [facility] BUN/creatinine ratioOrdered By: Valdez Olivo on 04-18-2025 Urea nitrogen/Creatinine [Mass ratio] 25.1 mg/mg High 10-20 [facility] Basic Metabolic Profile (BMP )on 04-18-2025 BUN/CRE 25.1 RATIO High 10-20 [facility] Comment on above: Performed By: #### L 100.0100, L500.2500 ####[facility] [address] [place], [address] Calcium [Mass/Vol] 9.1 mg/dL Normal 7.6-11.0 [facility] Comment on above: Performed By: #### L 100.0100, L500.2500 ####[facility] [address] [place], [address] Chloride [Moles/Vol] 89 mmol/L Low 98-108 [facility] Comment on above: Performed By: #### L 100.0100, L500.2500 ####[facility] [address] [place], [address] CO2 [Moles/Vol] 36.0 mmol/L High 21.0-32.0 [facility] Comment on above: Performed By: #### L 100.0100, L500.2500 ####[facility] [address] [place], [address] Creatinine [Mass/Vol] 1.73 mg/dL High 0.70-1.20 [facility] Comment on above: Performed By: #### L 100.0100, L500.2500 ####[facility] [address] [place], [address] ECRCL 30.73 ml/min Low 50-250 [facility] Comment on above: Performed By: #### L 100.0100, L500.2500 ####[facility] [address] [place], [address] GAP 12 Normal 5-15 [facility] Comment on above: Performed By: #### L 100.0100, L500.2500 ####[facility] [address] [place], [address] GFR/1.73 sq M.predicted among non-blacks MDRD (S/P/Bld) [Vol rate/Area] 39 mL/min/{1.73_m2} Low >60 [facility] Comment on above: Result Comment: mL/m in/1.73m2 CKD-EPI Creatinine Equation (2020) Performed By: #### L 100.0100, L500.2500 ####[facility] [address] [place], [address] Glucose [Mass/Vol] 104 mg/dL High 70-99 [facility] Comment on above: Performed By: #### L 100.0100, L500.2500 ####[facility] [address] [place], [address] Potassium [Moles/Vol] 3.4 mmol/L Normal 3.3-5.1 [facility] Comment on above: Performed By: #### L 100.0100, L500.2500 ####[facility] [address] [place], [address] Sodium [Moles/Vol] 137 mmol/L Normal 133-145 [facility] Comment on above: Performed By: #### L 100.0100, L500.2500 ####[facility] [address] [place], [address] Urea nitrogen [Mass/Vol] 43 mg/dL High 4-19 [facility] Comment on above: Performed By: #### L 100.0100, L500.2500 ####[facility] [address] [place], [address] BUN Normal 4-19 [facility] Comment on above: Result Comment: Canc elled via OM: Order cancelled - Patient discharged Performed By: #### L 100.0100, L500.2500 ####[facility] [address] [place], [address] BUN/CRE Normal 10-20 [facility] Comment on above: Result Comment: Canc elled via OM: Order cancelled - Patient discharged Performed By: #### L 100.0100, L500.2500 ####[facility] [address] [place], [address] Calcium Normal 7.6-11.0 [facility] Comment on above: Result Comment: Canc elled via OM: Order cancelled - Patient discharged Performed By: #### L 100.0100, L500.2500 ####[facility] [address] [place], [address] CL Normal 98-108 [facility] Comment on above: Result Comment: Canc elled via OM: Order cancelled - Patient discharged Performed By: #### L 100.0100, L500.2500 ####[facility] [address] [place], [address] CO2 Normal 21.0-32.0 [facility] Comment on above: Result Comment: Canc elled via OM: Order cancelled - Patient discharged Performed By: #### L 100.0100, L500.2500 ####[facility] [address] [place], [address] CREAT,SERUM Normal 0.70-1.20 [facility] Comment on above: Result Comment: Canc elled via OM: Order cancelled - Patient discharged Performed By: #### L 100.0100, L500.2500 ####[facility] [address] [place], [address] eGFR Normal >60 [facility] Comment on above: Result Comment: Canc elled via OM: Order cancelled - Patient discharged Performed By: #### L 100.0100, L500.2500 ####[facility] [address] [place], [address] GAP Normal 5-15 [facility] Comment on above: Result Comment: Canc elled via OM: Order cancelled - Patient discharged Performed By: #### L 100.0100, L500.2500 ####[facility] [address] [place], [address] GLU Normal 70-99 [facility] Comment on above: Result Comment: Canc elled via OM: Order cancelled - Patient discharged Performed By: #### L 100.0100, L500.2500 ####[facility] [address] [place], [address] Potassium Normal 3.3-5.1 [facility] Comment on above: Result Comment: Canc elled via OM: Order cancelled - Patient discharged Performed By: #### L 100.0100, L500.2500 ####[facility] [address] [place], [address] Basic Metabolic Profile (BMP) Normal 133-145 [facility] Comment on above: Result Comment: Canc elled via OM: Order cancelled - Patient discharged Performed By: #### L 100.0100, L500.2500 ####[facility] [address] [place], [address] Basophil percentageOrdered B y: Valdez Geovani on 04-18-2025 Basophils/100 WBC (Bld) 0.2 % 0-[address] [facility] Bedside Glucoseon 04-18-2025 FINGERSTICK GLU 217 mg/dL High 74-106 [facility] Comment on above: Result Comment: KODY GEMENT OF PATIENT CARE PER NURSING PROTOCOL Performed By: #### L 501.080 ####[facility] [address] [place], [address] FINGERSTICK GLU 161 mg/dL High 74-106 [facility] Comment on above: Result Comment: KODY GEMENT OF PATIENT CARE PER NURSING PROTOCOL Performed By: #### L 501.080 ####[facility] [address] [place], [address] FINGERSTICK GLU 211 mg/dL High 74-106 [facility] Comment on above: Result Comment: KODY GEMENT OF PATIENT CARE PER NURSING PROTOCOL Performed By: #### L 501.080 ####[facility] [address] [place], [address] FINGERSTICK GLU 99 mg/dL Normal 74-106 [facility] Comment on above: Result Comment: KODY GEMENT OF PATIENT CARE PER NURSING PROTOCOL Performed By: #### L 501.080 ####[facility] [address] [place], [address] CBC W/Diff, Automatedon 08-3 0-2025 Absolute Lymph 0.61 X10 3/uL Low 0.83-4.51 [facility] Comment on above: Performed By: #### L 100.0100, L500.2500 ####[facility] [address] [place], [address] Absolute Neut 7.7 X10 3/uL Normal 2.0-7.7 [facility] Comment on above: Performed By: #### L 100.0100, L500.2500 ####[facility] [address] [place], [address] Basophils/100 WBC (Bld) 0.2 % Normal 0-[address] [facility] Comment on above: Performed By: #### L 100.0100, L500.2500 ####[facility] [address] [place], [address] Eosinophils/100 WBC (Bld) 3.3 % Normal 0-5 [facility] Comment on above: Performed By: #### L 100.0100, L500.2500 ####[facility] [address] [place], [address] Erythrocyte distribution width (RBC) [Ratio] 17.0 % High 11.6-14.6 [facility] Comment on above: Performed By: #### L 100.0100, L500.2500 ####[facility] [address] [place], [address] Hematocrit (Bld) [Volume fraction] 28.6 % Low 40-54 [facility] Comment on above: Performed By: #### L 100.0100, L500.2500 ####[facility] [address] [place], [address] Hemoglobin (Bld) [Mass/Vol] 9.0 g/dL Low 13.0-16.5 [facility] Comment on above: Performed By: #### L 100.0100, L500.2500 ####[facility] [address] [place], [address] IG% 1.400 High 0.0-0.9 [facility] Comment on above: Result Comment: IG% - Immature Granulocytes (promyelocytes, myelocytes andmetamyelocytes) > 1% indicates that a LEFT SHIFT is Present. Performed By: #### L 100.0100, L500.2500 ####[facility] [address] [place], [address] Lymphocytes/100 WBC (Bld) 6.2 % Low 19-41 [facility] Comment on above: Performed By: #### L 100.0100, L500.2500 ####[facility] [address] [place], [address] MCH (RBC) [Entitic mass] 27.0 pg Normal 27.0-32.0 [facility] Comment on above: Performed By: #### L 100.0100, L500.2500 ####[facility] [address] [place], [address] MCHC (RBC) [Mass/Vol] 31.5 g/dL Low 32-36 [facility] Comment on above: Performed By: #### L 100.0100, L500.2500 ####[facility] [address] [place], [address] MCV (RBC) [Entitic vol] 85.9 fL Normal 80-[address] [facility] Comment on above: Performed By: #### L 100.0100, L500.2500 ####[facility] [address] [place], [address] Monocytes/100 WBC (Bld) 11.2 % High 0-[address] [facility] Comment on above: Performed By: #### L 100.0100, L500.2500 ####[facility] [address] [place], [address] Neutrophils/100 WBC (Bld) 77.7 % High 47-70 [facility] Comment on above: Performed By: #### L 100.0100, L500.2500 ####[facility] [address] [place], [address] Nucleated RBC (Bld) [#/Vol] 0 10*3/uL Normal 0-5 [facility] Comment on above: Performed By: #### L 100.0100, L500.2500 ####[facility] [address] [place], [address] Platelet mean volume (Bld) [Entitic vol] 10.5 fL Normal 6.2-12.0 [facility] Comment on above: Performed By: #### L 100.0100, L500.2500 ####[facility] [address] [place], [address] Platelets (Bld) [#/Vol] 186 10*3/uL Normal 150-450 [facility] Comment on above: Performed By: #### L 100.0100, L500.2500 ####[facility] [address] [place], [address] RBC (Bld) [#/Vol] 3.33 10*6/uL Low 4.6-6.2 [facility] Comment on above: Performed By: #### L 100.0100, L500.2500 ####[facility] [address] [place], [address] RDW SD 52.7 fl High 35.1-43.9 [facility] Comment on above: Performed By: #### L 100.0100, L500.2500 ####[facility] [address] [place], [address] WBC (Bld) [#/Vol] 9.9 10*3/uL Normal 4.4-11.0 [facility] Comment on above: Performed By: #### L 100.0100, L500.2500 ####[facility] [address] [place], [address] Absolute Neut Normal 2.0-7.7 [facility] Comment on above: Result Comment: Canc elled via OM: Order cancelled - Patient discharged Performed By: #### L 100.0100, L500.2500 ####[facility] [address] [place], [address] HCT Normal 40-54 [facility] Comment on above: Result Comment: Canc elled via OM: Order cancelled - Patient discharged Performed By: #### L 100.0100, L500.2500 ####[facility] [address] [place], [address] HGB Normal 13.0-16.5 [facility] Comment on above: Result Comment: Canc elled via OM: Order cancelled - Patient discharged Performed By: #### L 100.0100, L500.2500 ####[facility] [address] [place], [address] MCH Normal 27.0-32.0 [facility] Comment on above: Result Comment: Canc elled via OM: Order cancelled - Patient discharged Performed By: #### L 100.0100, L500.2500 ####[facility] [address] [place], [address] MCHC Normal 32-36 [facility] Comment on above: Result Comment: Canc elled via OM: Order cancelled - Patient discharged Performed By: #### L 100.0100, L500.2500 ####[facility] [address] [place], [address] MCV Normal 80-94 [facility] Comment on above: Result Comment: Canc elled via OM: Order cancelled - Patient discharged Performed By: #### L 100.0100, L500.2500 ####[facility] [address] [place], [address] NEUT% Normal 47-70 [facility] Comment on above: Result Comment: Canc elled via OM: Order cancelled - Patient discharged Performed By: #### L 100.0100, L500.2500 ####[facility] [address] [place], [address] PLT Normal 150-450 [facility] Comment on above: Result Comment: Canc elled via OM: Order cancelled - Patient discharged Performed By: #### L 100.0100, L500.2500 ####[facility] [address] [place], [address] RBC Normal 4.6-6.2 [facility] Comment on above: Result Comment: Canc elled via OM: Order cancelled - Patient discharged Performed By: #### L 100.0100, L500.2500 ####[facility] [address] [place], [address] RDW CV Normal 11.6-14.6 [facility] Comment on above: Result Comment: Canc elled via OM: Order cancelled - Patient discharged Performed By: #### L 100.0100, L500.2500 ####[facility] [address] [place], [address] RDW SD Normal 35.1-43.9 [facility] Comment on above: Result Comment: Canc elled via OM: Order cancelled - Patient discharged Performed By: #### L 100.0100, L500.2500 ####[facility] [address] [place], [address] WBC Normal 4.4-11.0 [facility] Comment on above: Result Comment: Canc elled via OM: Order cancelled - Patient discharged Performed By: #### L 100.0100, L500.2500 ####[facility] [address] [place], [address] Carbon dioxide, total [Moles /volume] in Central venous bloodOrdered By: Valdez Olivo on 04-18-2025 CO2 [Moles/Vol] 36.0 mmol/L High 21.0-32.0 [facility] Chloride assayOrdered By: Aiden Olivo on 04-18-2025 Chloride [Moles/Vol] 89 mmol/L Low 98-108 [facility] Eosinophil percentageOrdered By: Valdez Olivo on 04-18-2025 Eosinophils/100 WBC (Bld) 3.3 % 0-5 [facility] Erythrocyte distribution wid th ratioOrdered By: Valdez Olivo on 04-18-2025 Erythrocyte distribution width (RBC) [Ratio] 17.0 % High 11.6-14.6 [facility] Erythrocyte distribution wid th standard deviationOrdered By: Valdez Olivo on 04-18-2025 Erythrocyte distribution width (RBC) [Ratio] 52.7 fl High 35.1-43.9 [facility] Glomerular filtration rate ( GFR) estimation/1.73 sq m using serum, plasma, or whole bOrdered By: Valdez Olivo on 04-18-2025 GFR/1.73 sq M.predicted among non-blacks MDRD (S/P/Bld) [Vol rate/Area] 39 mL/min/{1.73_m2} Low >60 [facility] Hematocrit Auto (Bld) [Volum e fraction]Ordered By: Valdez Olivo on 04-18-2025 Hematocrit (Bld) [Volume fraction] 28.6 % Low 40-54 [facility] Hemoglobin measurementOrdere d By: Valdez Olivo on 04-18-2025 Hemoglobin (Bld) [Mass/Vol] 9.0 g/dL Low 13.0-16.5 [facility] Immature granulocytes/100 WB C Auto (Bld)Ordered By: Valdez Olivo on 04-18-2025 Immature granulocytes/100 WBC (Bld) 1.400 % High 0.0-0.9 [facility] MCV (mean corpuscular volume ) determinationOrdered By: Valdez Olivo on 04-18-2025 MCV (RBC) [Entitic vol] 85.9 fL 80-[address] [facility] Mean corpuscular hemoglobin (MCH) determinationOrdered By: Valdez Olivo 04-18-2025 MCH (RBC) [Entitic mass] 27.0 pg 27.0-32.0 [facility] Monocyte percentageOrdered B y: Valdez Olivo on 04-18-2025 Monocytes/100 WBC (Bld) 11.2 % High 0-[address] [facility] Neutrophil percentageOrdered By: Valdez Olivo on 04-18-2025 Neutrophils/100 WBC (Bld) 77.7 % High 47-70 [facility] Platelet countOrdered By: Aiden Olivo on 04-18-2025 Platelets (Bld) [#/Vol] 186 10*3/uL 150-450 [facility] Potassium measurement (mass/ volume)Ordered By: Valdez Olivo on 04-18-2025 Potassium (Unsp spec) [Mass/Vol] 3.4 mmol/L 3.3-5.1 [facility] RBC Auto (Bld) [#/Vol]Ordere d By: Valdez Olivo on 04-18-2025 RBC (Bld) [#/Vol] 3.33 10*6/uL Low 4.6-6.2 [facility] Serum creatinine measurement (mass/volume)Ordered By: Valdez Olivo on 04-18-2025 Creatinine [Mass/Vol] 1.73 mg/dL High 0.70-1.20 [facility] Serum glucose measurement (m ass/volume)Ordered By: Valdez Olivo on 04-18-2025 Glucose [Mass/Vol] 104 mg/dL High 70-99 [facility] Serum or plasma calcium kingsley urement (mass/volume)Ordered By: Valdez Geovani on 04-18-2025 Calcium [Mass/Vol] 9.1 mg/dL 7.6-11.0 [facility] Serum or plasma urea nitroge n measurement (mass/volume)Ordered By: Valdez Olivo on 04-18-2025 Urea nitrogen [Mass/Vol] 43 mg/dL High 4-19 [facility] Sodium levelOrdered By: Valdez Geovani on 04-18-2025 Sodium [Moles/Vol] 137 mmol/L 133-145 [facility] White blood cell (WBC) count Ordered By: Valdez Geovani on 04-18-2025 WBC (Bld) [#/Vol] 9.9 10*3/uL 4.4-11.0 [facility] .Auto Diffon 04-17-2025 Basophil, Absolute 0.0 10 3/mcL Normal 0.0-0.[address] [facility] Comment on above: Performed By: #### P ROBF, BFPR, PHBF, BFCT, GLUBF, LDBF #### [address] [address] Basophils/100 WBC (Bld) 0.6 % Normal 0.0-2.5 [facility] Comment on above: Performed By: #### P ROBF, BFPR, PHBF, BFCT, GLUBF, LDBF #### [address] [address] Eosinophil, Absolute 0.4 10 3/mcL Normal 0.0-0.7 [facility] Comment on above: Performed By: #### P ROBF, BFPR, PHBF, BFCT, GLUBF, LDBF #### [address] [address] Eosinophils/100 WBC (Bld) 4.2 % Normal 0.0-6.0 [facility] Comment on above: Performed By: #### P ROBF, BFPR, PHBF, BFCT, GLUBF, LDBF #### [address] [address] Lymphocyte, Absolute 0.5 10 3/mcL Low 0.9-4.3 [facility] Comment on above: Performed By: #### P ROBF, BFPR, PHBF, BFCT, GLUBF, LDBF #### [address] [address] Lymphocytes/100 WBC (Bld) 5.5 % Low 20.0-40.0 [facility] Comment on above: Performed By: #### P ROBF, BFPR, PHBF, BFCT, GLUBF, LDBF #### [address] [address] Monocyte, Absolute 0.8 10 3/mcL Normal 0.1-1.[address] [facility] Comment on above: Performed By: #### P ROBF, BFPR, PHBF, BFCT, GLUBF, LDBF #### [address] [address] Monocytes/100 WBC (Bld) 9.6 % Normal 2.0-13.0 [facility] Comment on above: Performed By: #### P ROBF, BFPR, PHBF, BFCT, GLUBF, LDBF #### [address] [address] Neutrophils/100 WBC (Bld) 80.1 % High 50.0-75.0 [facility] Comment on above: Performed By: #### P ROBF, BFPR, PHBF, BFCT, GLUBF, LDBF #### [address] [address] .GFRon 04-17-2025 Estimated Glomerular Filtration Rate 43 ml/min/1.73sqm Normal [facility] Comment on above: Result Comment: [...] ROBF, BFPR, PHBF, BFCT, GLUBF, LDBF #### [place] [address] .NEUABSon 04-17-2025 Neutrophil, Absolute 7.1 10 3/mcL Normal 2.3-8.1 [facility] Comment on above: Performed By: #### P ROBF, BFPR, PHBF, BFCT, GLUBF, LDBF #### [place] [address] APTTon 04-17-2025 aPTT Coag (Bld) [Time] 73.1 s High 25.0-35.0 [facility] Comment on above: Result Comment: For Heparin anticoagulation therapy, the recommended therapeutic range is: 54-77 seconds (APTT Correlation with Anti-Xa therapeutic range of 0.3-0.7 units/ml). PLEASE REFERENCE THE PHARMACY PROTOCOL FOR DOSING. Performed By: #### P ROBF, BFPR, PHBF, BFCT, GLUBF, LDBF #### [place] [address] aPTT Coag (Bld) [Time] 68.5 s High 25.0-35.0 [facility] Comment on above: Result Comment: For Heparin anticoagulation therapy, the recommended therapeutic range is: 54-77 seconds (APTT Correlation with Anti-Xa therapeutic range of 0.3-0.7 units/ml). PLEASE REFERENCE THE PHARMACY PROTOCOL FOR DOSING. Performed By: #### P ROBF, BFPR, PHBF, BFCT, GLUBF, LDBF #### [place] [address] BFPRon 04-17-2025 Body Fluid Path Review Normal [facility] Comment on above: Order Comment: Added [...] ROBF, BFPR, PHBF, BFCT, GLUBF, LDBF #### [address] [address] Bedside Glucoseon 04-17-2025 FINGERSTICK GLU 191 mg/dL High 74-106 [facility] Comment on above: Result Comment: KODY STRONG OF PATIENT CARE PER NURSING PROTOCOL Performed By: #### L 501.080 ####[facility] [address] [place], [place], [address] CBCon 04-17-2025 Erythrocyte distribution width (RBC) [Ratio] 18.3 % High 11.5-15.5 [facility] Comment on above: Performed By: #### P ROBF, BFPR, PHBF, BFCT, GLUBF, LDBF #### [address] [address] Hematocrit (Bld) [Volume fraction] 27.4 % Low 40.0-52.0 [facility] Comment on above: Performed By: #### P ROBF, BFPR, PHBF, BFCT, GLUBF, LDBF #### [address] [address] Hgb 9.0 G/dL Low 13.0-17.5 [facility] Comment on above: Performed By: #### P ROBF, BFPR, PHBF, BFCT, GLUBF, LDBF #### [address] [address] MCH (RBC) [Entitic mass] 27.3 pg Normal 27.0-33.0 [facility] Comment on above: Performed By: #### P ROBF, BFPR, PHBF, BFCT, GLUBF, LDBF #### [address] [address] MCHC 32.7 G/dL Normal 32.0-36.0 [facility] Comment on above: Performed By: #### P ROBF, BFPR, PHBF, BFCT, GLUBF, LDBF #### [place] [id number] MCV (RBC) [Entitic vol] 83.4 fL Normal 81.0-100.0 [facility] Comment on above: Performed By: #### P ROBF, BFPR, PHBF, BFCT, GLUBF, LDBF #### [place] [id number] Platelet 163 10 3/mcL Normal 150-450 [facility] Comment on above: Performed By: #### P ROBF, BFPR, PHBF, BFCT, GLUBF, LDBF #### [place] [id number] Platelet mean volume (Bld) [Entitic vol] 8.4 fL Normal 6.4-10.5 [facility] Comment on above: Performed By: #### P ROBF, BFPR, PHBF, BFCT, GLUBF, LDBF #### [place] [address] RBC 3.29 10 6/mcL Low 4.50-6.00 [facility] Comment on above: Performed By: #### P ROBF, BFPR, PHBF, BFCT, GLUBF, LDBF #### [place] [id number] WBC 8.8 10 3/mcL Normal 4.5-10.8 [facility] Comment on above: Performed By: #### P ROBF, BFPR, PHBF, BFCT, GLUBF, LDBF #### [address] [address] CMPon 04-17-2025 Albumin Level 2.7 G/dL Low 3.2-4.8 [facility] Comment on above: Order Comment: vrb- called critical CO2 to KHURRAM Man 04/17/2025 06:09:20 EDT SAS Performed By: #### P ROBF, BFPR, PHBF, BFCT, GLUBF, LDBF #### [facility] [address] [place], [place] [address] Albumin/Globulin [Mass ratio] 0.8 {ratio} Low 0.9-1.6 [facility] Comment on above: Order Comment: vrb- called critical CO2 to KHURRAM Man 04/17/2025 06:09:20 EDT SAS Performed By: #### P ROBF, BFPR, PHBF, BFCT, GLUBF, LDBF #### [address] [address] ALP [Catalytic activity/Vol] 65 U/L Normal 38-126 [facility] Comment on above: Order Comment: vrb- called critical CO2 to KHURRAM Man 04/17/2025 06:09:20 EDT SAS Performed By: #### P ROBF, BFPR, PHBF, BFCT, GLUBF, LDBF #### [address] [address] ALT [Catalytic activity/Vol] 21 U/L Normal 12-55 [facility] Comment on above: Order Comment: vrb- called critical CO2 to KHURRAM Man 04/17/2025 06:09:20 EDT SAS Performed By: #### P ROBF, BFPR, PHBF, BFCT, GLUBF, LDBF #### [address] [address] AST [Catalytic activity/Vol] 16 U/L Normal 8-34 [facility] Comment on above: Order Comment: vrb- called critical CO2 to KHURRAM Man 04/17/2025 06:09:20 EDT SAS Performed By: #### P ROBF, BFPR, PHBF, BFCT, GLUBF, LDBF #### [address] [address] Bili Total 0.40 mg/dL Normal 0.20-1.20 [facility] Comment on above: Order Comment: vrb- called critical CO2 to KHURRAM Man 04/17/2025 06:09:20 EDT SAS Result Comment: Use of this assay is not recommended for patients undergoing treatment with eltrombopag due to the potential for falsely elevated results. Performed By: #### P ROBF, BFPR, PHBF, BFCT, GLUBF, LDBF #### [address] [address] BUN/Creatinine Ratio 25.3 ratio High 10.0-22.[address] [facility] Comment on above: Order Comment: vrb- called critical CO2 to RN Mando Man 04/17/2025 06:09:20 EDT SAS Performed By: #### P ROBF, BFPR, PHBF, BFCT, GLUBF, LDBF #### [address] [address] Calcium [Mass/Vol] 9.4 mg/dL Normal 8.7-10.4 [facility] Comment on above: Order Comment: vrb- called critical CO2 to RN Mando Man 04/17/2025 06:09:20 EDT SAS Performed By: #### P ROBF, BFPR, PHBF, BFCT, GLUBF, LDBF #### [place] [address] Chloride [Moles/Vol] 88 mmol/L Low 98-[address] [facility] Comment on above: Order Comment: vrb- called critical CO2 to RN Mando Man 04/17/2025 06:09:20 EDT SAS Performed By: #### P ROBF, BFPR, PHBF, BFCT, GLUBF, LDBF #### [address] [address] Creatinine [Mass/Vol] 1.62 mg/dL High 0.60-1.40 [facility] Comment on above: Order Comment: vrb- called critical CO2 to RN Mando Man 04/17/2025 06:09:20 EDT SAS Result Comment: Test ing performed on [employer] analyzer using enzymatic creatinine methodology. Performed By: #### P ROBF, BFPR, PHBF, BFCT, GLUBF, LDBF #### [address] [address] Globulin 3.5 G/dL Normal 2.5-4.2 [facility] Comment on above: Order Comment: vrb- called critical CO2 to RN Mando Man 04/17/2025 06:09:20 EDT SAS Performed By: #### P ROBF, BFPR, PHBF, BFCT, GLUBF, LDBF #### [address] [address] Glucose [Mass/Vol] 174 mg/dL High 82-115 [facility] Comment on above: Order Comment: vrb- called critical CO2 to RN Mando Man 04/17/2025 06:09:20 EDT SAS Performed By: #### P ROBF, BFPR, PHBF, BFCT, GLUBF, LDBF #### [address] [address] Potassium [Moles/Vol] 3.7 mmol/L Normal 3.5-5.0 [facility] Comment on above: Order Comment: vrb- called critical CO2 to RN Mando Man 04/17/2025 06:09:20 EDT SAS Performed By: #### P ROBF, BFPR, PHBF, BFCT, GLUBF, LDBF #### [address] [address] Sodium [Moles/Vol] 137 mmol/L Normal 136-145 [facility] Comment on above: Order Comment: vrb- called critical CO2 to RN Mando Man 04/17/2025 06:09:20 EDT SAS Performed By: #### P ROBF, BFPR, PHBF, BFCT, GLUBF, LDBF #### [address] [address] Total Protein 6.2 G/dL Normal 5.7-8.2 [facility] Comment on above: Order Comment: vrb- called critical CO2 to RN Mando Man 04/17/2025 06:09:20 EDT SAS Performed By: #### P ROBF, BFPR, PHBF, BFCT, GLUBF, LDBF #### [address] [address] Urea nitrogen [Mass/Vol] 41.0 mg/dL High 8.0-22.0 [facility] Comment on above: Order Comment: vrb- called critical CO2 to RN Mando Man 04/17/2025 06:09:20 EDT SAS Performed By: #### P ROBF, BFPR, PHBF, BFCT, GLUBF, LDBF #### [place] [address] CO2 [Moles/Vol] mmol/L Critically abnormal 22-32 [facility] Comment on above: Order Comment: vrb- called critical CO2 to RN Mando Man 04/17/2025 06:09:20 EDT SAS Performed By: #### P ROBF, BFPR, PHBF, BFCT, GLUBF, LDBF #### [place] [address] Electrolyte Balance See Comment Normal 4.0-15.[address] [facility] Comment on above: Order Comment: vrb- called critical CO2 to KHURRAM Man 04/17/2025 06:09:20 EDT SAS Result Comment: Unab le to calculate this test result accurately. Results used to calculate this test are outside the reportable range. Performed By: #### P ROBF, BFPR, PHBF, BFCT, GLUBF, LDBF #### [place] [address] FT4on 04-17-2025 Free T4 [Mass/Vol] 0.88 ng/dL Low 0.89-1.76 [facility] Comment on above: Order Comment: Order ed by Discern Result Comment: No te - New Reference Range in effect 20 Performed By: #### P ROBF, BFPR, PHBF, BFCT, GLUBF, LDBF #### [place] [address] LABORATORYOrdered By: SYSTEM SYSTEM on 04-17-2025 aPTT [...] 1.62 mg/dL High 0.60 - 1.40 mg/dL [facility] Comment on above: Interpretive Data: T esting performed on [employer] analyzer using enzymatic creatinine methodology. Eosinophils (Bld) [...] Glucose Testing Reason Routine (04/17/25 11:08 AM) [facility] Work Phone: Glucose [Mass/Vol] 276 mg/dL High 82 - 115 mg/dL [facility] Work Phone: Blood Glucose Testing Reason Routine (04/17/25 7:57 AM) [facility] Work Phone: Glucose [Mass/Vol] 171 mg/dL High 82 - 115 mg/dL [facility] Work Phone: LABORATORYOrdered By: Lisa Mandel [...] 04-17-2025 Magnesium [Mass/Vol] 1.8 mg/dL Normal 1.6-2.[address] [facility] Comment on above: Performed By: #### P ROBF, BFPR, PHBF, BFCT, GLUBF, LDBF #### [place] [address] Non-Director Of Marketing And Promotions Cytology Reporton Non-Director Of Marketing And Promotions Cytology Report . Pathology Reports Accession: Collected Date/Time: Received Date/Time: Pathologist: [id number] 04/15/2025 10:30 EDT 04/16/2025 08:56 EDT MÓNICA VIEIRA MD Non-Director Of Marketing And Promotions Cytology Report CLINICAL INFORMATION: Pleural effusion DIAGNOSTIC CATEGORY: NEGATIVE FOR MALIGNANCY. SPECIMEN: Right pleural fluid GROSS DESCRIPTION: # of Blocks: 1 # of Monolayers: 1 Volume (ml) 950 Color: fresh cloudy red/orange fluid Verified by Pathology Report verified by [facility] Screened by: ANMOL GARCIA Electronically signed by MÓNICA VIEIRA Sign-Out Date: 04/17/2025 14:51 Performing Lab: [facility], [address] [place] [address] Pathology Dept Disclaimer If ancillary studies were utilized, the following Laboratory Developed Test (LDT) disclaimer will apply: Under CLIA requirements, [facility] is qualified to perform high complexity testing. For all ancillary stains, positive and negative controls stain appropriately. Performance characteristics of immunohistochemical and chromogenic in-situ hybridization tests have been determined by [facility]. These tests are used for clinical purposes, They should not be regarded as investigational or for research. Normal [facility] TSHRon 04-17-2025 TSH 4.806 mIU/mL High 0.550-4.78 0 [facility] Comment on above: Performed By: #### P ROBF, BFPR, PHBF, BFCT, GLUBF, LDBF #### [place] [address] XR CHEST 1 VIEWon 04-17-2025 XR CHEST [...] 04/17/2025 8:12:37 AM Ordering Provider: GLORIA Francois [facility] .Auto Diffon 04-16-2025 Basophil, Absolute 0.0 10 3/mcL Normal 0.0-0.[address] [facility] Comment on above: Performed By: #### P ROBF, BFPR, PHBF, BFCT, GLUBF, LDBF #### [address] [address] Basophils/100 WBC (Bld) 0.1 % Normal 0.0-2.5 [facility] Comment on above: Performed By: #### P ROBF, BFPR, PHBF, BFCT, GLUBF, LDBF #### [address] [address] Eosinophil, Absolute 0.5 10 3/mcL Normal 0.0-0.7 [facility] Comment on above: Performed By: #### P ROBF, BFPR, PHBF, BFCT, GLUBF, LDBF #### [address] [address] Eosinophils/100 WBC (Bld) 5.3 % Normal 0.0-6.0 [facility] Comment on above: Performed By: #### P ROBF, BFPR, PHBF, BFCT, GLUBF, LDBF #### [address] [address] Lymphocyte, Absolute 0.4 10 3/mcL Low 0.9-4.3 [facility] Comment on above: Performed By: #### P ROBF, BFPR, PHBF, BFCT, GLUBF, LDBF #### [address] [address] Lymphocytes/100 WBC (Bld) 4.8 % Low 20.0-40.0 [facility] Comment on above: Performed By: #### P ROBF, BFPR, PHBF, BFCT, GLUBF, LDBF #### [address] [address] Monocyte, Absolute 0.7 10 3/mcL Normal 0.1-1.[address] [facility] Comment on above: Performed By: #### P ROBF, BFPR, PHBF, BFCT, GLUBF, LDBF #### [address] [address] Monocytes/100 WBC (Bld) 8.3 % Normal 2.0-13.0 [facility] Comment on above: Performed By: #### P ROBF, BFPR, PHBF, BFCT, GLUBF, LDBF #### [address] [address] Neutrophils/100 WBC (Bld) 81.5 % High 50.0-75.0 [facility] Comment on above: Performed By: #### P ROBF, BFPR, PHBF, BFCT, GLUBF, LDBF #### [address] [address] .GFRon 04-16-2025 Estimated Glomerular Filtration Rate 48 ml/min/1.73sqm Normal [facility] Comment on above: Result Comment: [...] ROBF, BFPR, PHBF, BFCT, GLUBF, LDBF #### [place] [address] .NEUABSon 04-16-2025 Neutrophil, Absolute 7.3 10 3/mcL Normal 2.3-8.1 [facility] Comment on above: Performed By: #### P ROBF, BFPR, PHBF, BFCT, GLUBF, LDBF #### [place] [address] APTTon 04-16-2025 aPTT Coag (Bld) [Time] 63.1 s High 25.0-35.0 [facility] Comment on above: Result Comment: For Heparin anticoagulation therapy, the recommended therapeutic range is: 54-77 seconds (APTT Correlation with Anti-Xa therapeutic range of 0.3-0.7 units/ml). PLEASE REFERENCE THE PHARMACY PROTOCOL FOR DOSING. Performed By: #### P ROBF, BFPR, PHBF, BFCT, GLUBF, LDBF #### [place] [id number] aPTT Coag (Bld) [Time] 55.6 s High 25.0-35.0 [facility] Comment on above: Result Comment: For Heparin anticoagulation therapy, the recommended therapeutic range is: 54-77 seconds (APTT Correlation with Anti-Xa therapeutic range of 0.3-0.7 units/ml). PLEASE REFERENCE THE PHARMACY PROTOCOL FOR DOSING. Performed By: #### A PTT #### [place] [id number] CBCon 04-16-2025 Erythrocyte distribution width (RBC) [Ratio] 18.8 % High 11.5-15.5 [facility] Comment on above: Performed By: #### P ROBF, BFPR, PHBF, BFCT, GLUBF, LDBF #### [place] [address] Hematocrit (Bld) [Volume fraction] 27.9 % Low 40.0-52.0 [facility] Comment on above: Performed By: #### P ROBF, BFPR, PHBF, BFCT, GLUBF, LDBF #### [place] [address] Hgb 9.1 G/dL Low 13.0-17.5 [facility] Comment on above: Performed By: #### P ROBF, BFPR, PHBF, BFCT, GLUBF, LDBF #### [place] [id number] MCH (RBC) [Entitic mass] 27.8 pg Normal 27.0-33.0 [facility] Comment on above: Performed By: #### P ROBF, BFPR, PHBF, BFCT, GLUBF, LDBF #### [place] [address] MCHC 32.8 G/dL Normal 32.0-36.0 [facility] Comment on above: Performed By: #### P ROBF, BFPR, PHBF, BFCT, GLUBF, LDBF #### [place] [address] MCV (RBC) [Entitic vol] 84.7 fL Normal 81.0-100.0 [facility] Comment on above: Performed By: #### P ROBF, BFPR, PHBF, BFCT, GLUBF, LDBF #### [place] [address] Platelet 158 10 3/mcL Normal 150-450 [facility] Comment on above: Performed By: #### P ROBF, BFPR, PHBF, BFCT, GLUBF, LDBF #### [place] [address] Platelet mean volume (Bld) [Entitic vol] 8.7 fL Normal 6.4-10.5 [facility] Comment on above: Performed By: #### P ROBF, BFPR, PHBF, BFCT, GLUBF, LDBF #### [place] [address] RBC 3.29 10 6/mcL Low 4.50-6.00 [facility] Comment on above: Performed By: #### P ROBF, BFPR, PHBF, BFCT, GLUBF, LDBF #### [place] [id number] WBC 9.0 10 3/mcL Normal 4.5-10.8 [facility] Comment on above: Performed By: #### P ROBF, BFPR, PHBF, BFCT, GLUBF, LDBF #### [address] [address] CMPon 04-16-2025 Albumin Level 2.6 G/dL Low 3.2-4.8 [facility] Comment on above: Performed By: #### P ROBF, BFPR, PHBF, BFCT, GLUBF, LDBF #### [place] [id number] Albumin/Globulin [Mass ratio] 0.8 {ratio} Low 0.9-1.6 [facility] Comment on above: Performed By: #### P ROBF, BFPR, PHBF, BFCT, GLUBF, LDBF #### [place] [address] ALP [Catalytic activity/Vol] 59 U/L Normal 38-126 [facility] Comment on above: Performed By: #### P ROBF, BFPR, PHBF, BFCT, GLUBF, LDBF #### [place] [address] ALT [Catalytic activity/Vol] 23 U/L Normal 12-55 [facility] Comment on above: Performed By: #### P ROBF, BFPR, PHBF, BFCT, GLUBF, LDBF #### [place] [address] AST [Catalytic activity/Vol] 17 U/L Normal 8-34 [facility] Comment on above: Performed By: #### P ROBF, BFPR, PHBF, BFCT, GLUBF, LDBF #### [place] [address] Bili Total 0.50 mg/dL Normal 0.20-1.20 [facility] Comment on above: Result Comment: Use of this assay is not recommended for patients undergoing treatment with eltrombopag due to the potential for falsely elevated results. Performed By: #### P ROBF, BFPR, PHBF, BFCT, GLUBF, LDBF #### [place] [id number] BUN/Creatinine Ratio 22.6 ratio High 10.0-22.[address] [facility] Comment on above: Performed By: #### P ROBF, BFPR, PHBF, BFCT, GLUBF, LDBF #### [place] [id number] Calcium [Mass/Vol] 9.2 mg/dL Normal 8.7-10.4 [facility] Comment on above: Performed By: #### P ROBF, BFPR, PHBF, BFCT, GLUBF, LDBF #### [place] [address] Chloride [Moles/Vol] 91 mmol/L Low 98-[address] [facility] Comment on above: Performed By: #### P ROBF, BFPR, PHBF, BFCT, GLUBF, LDBF #### [place] [id number] CO2 [Moles/Vol] 38 mmol/L High 22-32 [facility] Comment on above: Performed By: #### P ROBF, BFPR, PHBF, BFCT, GLUBF, LDBF #### [place] [id number] Creatinine [Mass/Vol] 1.46 mg/dL High 0.60-1.40 [facility] Comment on above: Result Comment: Test ing performed on [employer] analyzer using enzymatic creatinine methodology. Performed By: #### P ROBF, BFPR, PHBF, BFCT, GLUBF, LDBF #### [place] [id number] Electrolyte Balance 9.0 mEq/L Normal 4.0-15.0 [facility] Comment on above: Performed By: #### P ROBF, BFPR, PHBF, BFCT, GLUBF, LDBF #### [place] [id number] Globulin 3.2 G/dL Normal 2.5-4.2 [facility] Comment on above: Performed By: #### P ROBF, BFPR, PHBF, BFCT, GLUBF, LDBF #### [address] [address] Glucose [Mass/Vol] 144 mg/dL High 82-115 [facility] Comment on above: Performed By: #### P ROBF, BFPR, PHBF, BFCT, GLUBF, LDBF #### [address] [address] Potassium [Moles/Vol] 3.7 mmol/L Normal 3.5-5.0 [facility] Comment on above: Performed By: #### P ROBF, BFPR, PHBF, BFCT, GLUBF, LDBF #### [address] [address] Sodium [Moles/Vol] 138 mmol/L Normal 136-145 [facility] Comment on above: Performed By: #### P ROBF, BFPR, PHBF, BFCT, GLUBF, LDBF #### [address] [address] Total Protein 5.8 G/dL Normal 5.7-8.2 [facility] Comment on above: Performed By: #### P ROBF, BFPR, PHBF, BFCT, GLUBF, LDBF #### [address] [address] Urea nitrogen [Mass/Vol] 33.0 mg/dL High 8.0-22.0 [facility] Comment on above: Performed By: #### P ROBF, BFPR, PHBF, BFCT, GLUBF, LDBF #### [address] [address] LABORATORYOrdered By: Mónica Brown on 04-16-2025 Blood Glucose Testing Reason Routine (04/16/25 9:15 PM) [facility] Work Phone: Glucose [Mass/Vol] 207 mg/dL High 82 - 115 mg/dL [facility] Work Phone: LABORATORYOrdered By: SYSTEM SYSTEM [...] above: Interpretive Data: T esting performed on [employer] analyzer using enzymatic creatinine methodology. Electrolyte Balance [...] 1.8 mg/dL Normal 1.6-2.[address] [facility] Comment on above: Performed By: #### P ROBF, BFPR, PHBF, BFCT, GLUBF, LDBF #### [address] [address] .Auto Diffon 04-15-2025 Basophil, Absolute 0.0 10 3/mcL Normal 0.0-0.[address] [facility] Comment on above: Performed By: #### P ROBF, BFPR, PHBF, BFCT, GLUBF, LDBF #### [address] [address] Basophils/100 WBC (Bld) 0.1 % Normal 0.0-2.5 [facility] Comment on above: Performed By: #### P ROBF, BFPR, PHBF, BFCT, GLUBF, LDBF #### [address] [address] Eosinophil, Absolute 0.4 10 3/mcL Normal 0.0-0.7 [facility] Comment on above: Performed By: #### P ROBF, BFPR, PHBF, BFCT, GLUBF, LDBF #### [address] [address] Eosinophils/100 WBC (Bld) 4.1 % Normal 0.0-6.0 [facility] Comment on above: Performed By: #### P ROBF, BFPR, PHBF, BFCT, GLUBF, LDBF #### [address] [address] Lymphocyte, Absolute 0.4 10 3/mcL Low 0.9-4.3 [facility] Comment on above: Performed By: #### P ROBF, BFPR, PHBF, BFCT, GLUBF, LDBF #### [address] [address] Lymphocytes/100 WBC (Bld) 4.5 % Low 20.0-40.0 [facility] Comment on above: Performed By: #### P ROBF, BFPR, PHBF, BFCT, GLUBF, LDBF #### [address] [address] Monocyte, Absolute 0.8 10 3/mcL Normal 0.1-1.[address] [facility] Comment on above: Performed By: #### P ROBF, BFPR, PHBF, BFCT, GLUBF, LDBF #### [address] [address] Monocytes/100 WBC (Bld) 8.5 % Normal 2.0-13.0 [facility] Comment on above: Performed By: #### P ROBF, BFPR, PHBF, BFCT, GLUBF, LDBF #### [address] [address] Neutrophils/100 WBC (Bld) 82.8 % High 50.0-75.0 [facility] Comment on above: Performed By: #### P ROBF, BFPR, PHBF, BFCT, GLUBF, LDBF #### [address] [address] .GFRon 04-15-2025 Estimated Glomerular Filtration Rate 50 ml/min/1.73sqm Normal [facility] Comment on above: Result Comment: [...] ROBF, BFPR, PHBF, BFCT, GLUBF, LDBF #### [address] [address] .NEUABSon 04-15-2025 Neutrophil, Absolute 7.8 10 3/mcL Normal 2.3-8.1 [facility] Comment on above: Performed By: #### P ROBF, BFPR, PHBF, BFCT, GLUBF, LDBF #### [address] [address] APTTon 04-15-2025 aPTT Coag (Bld) [Time] 55.0 s High 25.0-35.0 [facility] Comment on above: Result Comment: For Heparin anticoagulation therapy, the recommended therapeutic range is: 54-77 seconds (APTT Correlation with Anti-Xa therapeutic range of 0.3-0.7 units/ml). PLEASE REFERENCE THE PHARMACY PROTOCOL FOR DOSING. Performed By: #### P ROBF, BFPR, PHBF, BFCT, GLUBF, LDBF #### [address] [address] BFCTon 04-15-2025 Cells Counted BF 100 Normal [facility] Comment on above: Performed By: #### P ROBF, BFPR, PHBF, BFCT, GLUBF, LDBF #### [address] [address] Lymphocytes/100 WBC (Bld) 47 % Normal [facility] Comment on above: Performed By: #### P ROBF, BFPR, PHBF, BFCT, GLUBF, LDBF #### [address] [address] Mesothelial Cell % BF 4 % Normal [facility] Comment on above: Performed By: #### P ROBF, BFPR, PHBF, BFCT, GLUBF, LDBF #### [address] [address] Mononuclear cell % BF 1 % Normal [facility] Comment on above: Performed By: #### P ROBF, BFPR, PHBF, BFCT, GLUBF, LDBF #### [address] [address] Neutrophils/100 WBC (Bld) 48 % [facility] Comment on above: Performed By: #### P ROBF, BFPR, PHBF, BFCT, GLUBF, LDBF #### [address] [address] Total Nucleated Cells 172 /mm3 Normal [facility] Comment on above: Performed By: #### P ROBF, BFPR, PHBF, BFCT, GLUBF, LDBF #### [address] [address] Body Fluid Source Pleural fluid Normal [facility] Comment on above: Result Comment: Refe rence ranges have not been established for this body fluid. The test results must be integrated into the clinical context for interpretation. Performed By: #### P ROBF, BFPR, PHBF, BFCT, GLUBF, LDBF #### [address] [address] BMPon 04-15-2025 BUN/Creatinine Ratio 30.8 ratio High 10.0-22.[address] [facility] Comment on above: Performed By: #### P ROBF, BFPR, PHBF, BFCT, GLUBF, LDBF #### [address] [address] Calcium [Mass/Vol] 8.7 mg/dL Normal 8.7-10.4 [facility] Comment on above: Performed By: #### P ROBF, BFPR, PHBF, BFCT, GLUBF, LDBF #### [address] [address] Chloride [Moles/Vol] 94 mmol/L Low 98-[address] [facility] Comment on above: Performed By: #### P ROBF, BFPR, PHBF, BFCT, GLUBF, LDBF #### [address] [address] CO2 [Moles/Vol] 39 mmol/L High 22-32 [facility] Comment on above: Performed By: #### P ROBF, BFPR, PHBF, BFCT, GLUBF, LDBF #### [address] [address] Creatinine [Mass/Vol] 1.43 mg/dL High 0.60-1.40 [facility] Comment on above: Result Comment: Test ing performed on [employer] analyzer using enzymatic creatinine methodology. Performed By: #### P ROBF, BFPR, PHBF, BFCT, GLUBF, LDBF #### [address] [address] Electrolyte Balance 7.0 mEq/L Normal 4.0-15.0 [facility] Comment on above: Performed By: #### P ROBF, BFPR, PHBF, BFCT, GLUBF, LDBF #### [address] [address] Glucose [Mass/Vol] 134 mg/dL High 82-115 [facility] Comment on above: Performed By: #### P ROBF, BFPR, PHBF, BFCT, GLUBF, LDBF #### [place] [id number] Potassium [Moles/Vol] 3.8 mmol/L Normal 3.5-5.0 [facility] Comment on above: Performed By: #### P ROBF, BFPR, PHBF, BFCT, GLUBF, LDBF #### [place] [address] Sodium [Moles/Vol] 140 mmol/L Normal 136-145 [facility] Comment on above: Performed By: #### P ROBF, BFPR, PHBF, BFCT, GLUBF, LDBF #### [place] [address] Urea nitrogen [Mass/Vol] 44.0 mg/dL High 8.0-22.0 [facility] Comment on above: Performed By: #### P ROBF, BFPR, PHBF, BFCT, GLUBF, LDBF #### [place] [id number] CBCon 04-15-2025 Erythrocyte distribution width (RBC) [Ratio] 17.9 % High 11.5-15.5 [facility] Comment on above: Performed By: #### P ROBF, BFPR, PHBF, BFCT, GLUBF, LDBF #### [place] [address] Hematocrit (Bld) [Volume fraction] 26.7 % Low 40.0-52.0 [facility] Comment on above: Performed By: #### P ROBF, BFPR, PHBF, BFCT, GLUBF, LDBF #### [place] [address] Hgb 8.6 G/dL Low 13.0-17.5 [facility] Comment on above: Performed By: #### P ROBF, BFPR, PHBF, BFCT, GLUBF, LDBF #### [place] [address] MCH (RBC) [Entitic mass] 26.9 pg Low 27.0-33.0 [facility] Comment on above: Performed By: #### P ROBF, BFPR, PHBF, BFCT, GLUBF, LDBF #### [place] [id number] MCHC 32.1 G/dL Normal 32.0-36.0 [facility] Comment on above: Performed By: #### P ROBF, BFPR, PHBF, BFCT, GLUBF, LDBF #### [place] [address] MCV (RBC) [Entitic vol] 83.9 fL Normal 81.0-100.0 [facility] Comment on above: Performed By: #### P ROBF, BFPR, PHBF, BFCT, GLUBF, LDBF #### [place] [address] Platelet 169 10 3/mcL Normal 150-450 [facility] Comment on above: Performed By: #### P ROBF, BFPR, PHBF, BFCT, GLUBF, LDBF #### [place] [address] Platelet mean volume (Bld) [Entitic vol] 8.2 fL Normal 6.4-10.5 [facility] Comment on above: Performed By: #### P ROBF, BFPR, PHBF, BFCT, GLUBF, LDBF #### [place] [address] RBC 3.18 10 6/mcL Low 4.50-6.00 [facility] Comment on above: Performed By: #### P ROBF, BFPR, PHBF, BFCT, GLUBF, LDBF #### [place] [address] WBC 9.4 10 3/mcL Normal 4.5-10.8 [facility] Comment on above: Performed By: #### P ROBF, BFPR, PHBF, BFCT, GLUBF, LDBF #### [place] [address] GLUBFon 04-15-2025 Glucose Body Fluid Spec Type Pleural fluid Normal [facility] Comment on above: Result Comment: The reference interval(s) and other method performance specifications have not been established for this body fluid. The test result must be integrated into the clinical content for interpretation. Performed By: #### P ROBF, BFPR, PHBF, BFCT, GLUBF, LDBF #### [place] [id number] Glucose BF 191.0 mg/dL Normal [facility] Comment on above: Performed By: #### P ROBF, BFPR, PHBF, BFCT, GLUBF, LDBF #### [place] [address] HFPon 04-15-2025 Bili Indirect 0.2 mg/dL Normal 0.1-10.0 [facility] Comment on above: Performed By: #### T MADHAVI #### [place] [address] Albumin Level 2.9 G/dL Low 3.2-4.8 [facility] Comment on above: Performed By: #### T MADHAVI #### [place] [address] Albumin/Globulin [Mass ratio] 0.8 {ratio} Low 0.9-1.6 [facility] Comment on above: Performed By: #### T MADHAVI #### [place] [address] ALP [Catalytic activity/Vol] 65 U/L Normal 38-126 [facility] Comment on above: Performed By: #### T MADHAVI #### [place] [address] ALT [Catalytic activity/Vol] 29 U/L Normal 12-55 [facility] Comment on above: Performed By: #### T MADHAVI #### [place] [address] AST [Catalytic activity/Vol] 23 U/L Normal 8-34 [facility] Comment on above: Performed By: #### T MADHAVI #### [place] [address] Bili Direct 0.2 mg/dL Normal 0.0-0.4 [facility] Comment on above: Result Comment: Use of this assay is not recommended for patients undergoing treatment with eltrombopag due to the potential for falsely elevated results. Performed By: #### T MADHAVI #### [place] [id number] Bili Total 0.40 mg/dL Normal 0.20-1.20 [facility] Comment on above: Result Comment: Use of this assay is not recommended for patients undergoing treatment with eltrombopag due to the potential for falsely elevated results. Performed By: #### T MADHAVI #### [place] [address] Globulin 3.6 G/dL Normal 2.5-4.2 [facility] Comment on above: Performed By: #### T MADHAVI #### [place] [address] Total Protein 6.5 G/dL Normal 5.7-8.2 [facility] Comment on above: Performed By: #### T MADHAVI #### [place] [address] LABORATORYOrdered By: SYSTEM SYSTEM on 04-15-2025 Albumin [...] above: Interpretive Data: T esting performed on [employer] analyzer using enzymatic creatinine methodology. Electrolyte Balance [...] Body Fluid Spec Type Pleural fluid Normal [facility] Comment on above: Result Comment: The reference interval(s) and other method performance specifications have not been established for this body fluid. The test result must be integrated into the clinical content for interpretation. . Performed By: #### P ROBF, BFPR, PHBF, BFCT, GLUBF, LDBF #### [address] [address] LDH BF 137.0 U/L Normal [facility] Comment on above: Performed By: #### P ROBF, BFPR, PHBF, BFCT, GLUBF, LDBF #### [address] [address] LDHon 04-15-2025 LDH 216 U/L Normal 120-246 [facility] Comment on above: Performed By: #### T ROPHS #### [address] [address] MGon 04-15-2025 Magnesium [Mass/Vol] 1.8 mg/dL Normal 1.6-2.[address] [facility] Comment on above: Performed By: #### P ROBF, BFPR, PHBF, BFCT, GLUBF, LDBF #### [address] [address] No Panel Informationon 04-15 AFS Acid Fast Smear from Concentrated Specimen: Negative [facility] Work Phone: Culture Body Fluid Culture has been rec eived in lab and is no growth to date. Routine cultures are held for 5 days. [facility] Work Phone: FUNSM No fungal elements observed by calcofluor white stain. [facility] Work Phone: GS Sedimented 1+ Polymorphonuclear cells 1+ Mononuclear cells No organisms seen. [facility] Work Phone: Non-Director Of Marketing And Promotions Cytology Reporton Non-Director Of Marketing And Promotions Cytology Report Event Display: N G Specimen Right pleural fluid MÓNICA VIEIRA MD:VERIFY; Authored Date: [facility] Work Phone: Non-Director Of Marketing And Promotions Cytology Report Event Display: N G Signature Pathology Report verified by [facility] Screened by: ANMOL GARCIA Electronically signed by MÓNICA VIEIRA Sign-Out Date: 04/17/2025 14:51 Performing Lab: [facility], [address] [place] [address] Pathology Dept MÓNICA VIEIRA MD:VERIFY; Authored Date: [facility] Work Phone: Non-Director Of Marketing And Promotions Cytology Report Event Display: N G Clin Info Pleural effusion MÓNICA VIEIRA MD:VERIFY; Authored Date: [facility] Work Phone: Non-Director Of Marketing And Promotions Cytology Report Event Display: N G Diagnostic Category Interp NEGATIVE FOR MALIGNANCY. MÓNICA VIEIRA MD:VERIFY; Authored Date: [facility] Work Phone: Non-Director Of Marketing And Promotions Cytology Report Event Display: N G Gross # of Blocks: 1 # of Monolayers: 1 Volume (ml) 950 Color: fresh cloudy red/orange fluid MÓNICA VIEIRA MD:VERIFY; Authored Date: [facility] Work Phone: Non-Director Of Marketing And Promotions Cytology Report Event Display: N G Disclaimer If ancillary studies were utilized, the following Laboratory Developed Test (LDT) disclaimer will apply: Under CLIA requirements, [facility] is qualified to perform high complexity testing. For all ancillary stains, positive and negative controls stain appropriately. Performance characteristics of immunohistochemical and chromogenic in-situ hybridization tests have been determined by [facility]. These tests are used for clinical purposes, They should not be regarded as investigational or for research. MÓNICA VIEIRA MD:VERIFY; Authored Date: [id number] [facility] Work Phone: PBon 04-15-2025 Natriuretic peptide B (Bld) [Mass/Vol] 4360 pg/mL High 0-1800 [facility] Comment on above: Performed By: #### P ROBF, BFPR, PHBF, BFCT, GLUBF, LDBF #### [place] [address] PHBFon 04-15-2025 pH BF 7.4 Normal [facility] Comment on above: Result Comment: domingo becerril Performed By: #### P ROBF, BFPR, PHBF, BFCT, GLUBF, LDBF #### [place] [address] pH BF Spec Type Pleural fluid Normal [facility] Comment on above: Result Comment: The reference interval(s) and other method performance specifications have not been established for this body fluid. The test result must be integrated into the clinical content for interpretation. Performed By: #### P ROBF, BFPR, PHBF, BFCT, GLUBF, LDBF #### [place] [address] PROBFon 04-15-2025 Protein BF Type Pleural fluid Normal [facility] Comment on above: Result Comment: The reference interval(s) and other method performance specifications have not been established for this body fluid. The test result must be integrated into the clinical content for interpretation. Performed By: #### P ROBF, BFPR, PHBF, BFCT, GLUBF, LDBF #### [place] [address] Protein BF <2.0 [facility] MAIN Comment on above: Performed By: #### P ROBF, BFPR, PHBF, BFCT, GLUBF, LDBF #### [address] [address] XR CHEST 1 VIEWon 04-15-2025 XR CHEST [...] 04/15/2025 11:43:46 AM Ordering Provider: OLAMIDE GONZALEZ [facility] MAIN XR CHEST 1 VIEW [...] 04/15/2025 7:22:03 AM Ordering Provider: GLORIA DAVIS [facility] MAIN .Auto Diffon 04-14-2025 Basophil, Absolute 0.0 10 3/mcL Normal 0.0-0.[address] [facility] Comment on above: Performed By: #### P ROBF, BFPR, PHBF, BFCT, GLUBF, LDBF #### [address] [address] Basophils/100 WBC (Bld) 0.2 % Normal 0.0-2.5 [facility] Comment on above: Performed By: #### P ROBF, BFPR, PHBF, BFCT, GLUBF, LDBF #### [address] [address] Eosinophil, Absolute 0.2 10 3/mcL Normal 0.0-0.7 [facility] Comment on above: Performed By: #### P ROBF, BFPR, PHBF, BFCT, GLUBF, LDBF #### [address] [address] Eosinophils/100 WBC (Bld) 1.9 % Normal 0.0-6.0 [facility] Comment on above: Performed By: #### P ROBF, BFPR, PHBF, BFCT, GLUBF, LDBF #### [address] [address] Lymphocyte, Absolute 0.4 10 3/mcL Low 0.9-4.3 [facility] Comment on above: Performed By: #### P ROBF, BFPR, PHBF, BFCT, GLUBF, LDBF #### [address] [address] Lymphocytes/100 WBC (Bld) 4.0 % Low 20.0-40.0 [facility] Comment on above: Performed By: #### P ROBF, BFPR, PHBF, BFCT, GLUBF, LDBF #### [address] [address] Monocyte, Absolute 0.9 10 3/mcL Normal 0.1-1.[address] [facility] Comment on above: Performed By: #### P ROBF, BFPR, PHBF, BFCT, GLUBF, LDBF #### [address] [address] Monocytes/100 WBC (Bld) 8.3 % Normal 2.0-13.0 [facility] Comment on above: Performed By: #### P ROBF, BFPR, PHBF, BFCT, GLUBF, LDBF #### [place] [address] Neutrophils/100 WBC (Bld) 85.6 % High 50.0-75.0 [facility] Comment on above: Performed By: #### P ROBF, BFPR, PHBF, BFCT, GLUBF, LDBF #### [place] [id number] .GFRon 04-14-2025 Estimated Glomerular Filtration Rate 49 ml/min/1.73sqm Normal [facility] Comment on above: Result Comment: [...] results. Performed By: #### T ROPHS #### [place] [address] .NEUABSon 04-14-2025 Neutrophil, Absolute 9.2 10 3/mcL High 2.3-8.1 [facility] Comment on above: Performed By: #### P ROBF, BFPR, PHBF, BFCT, GLUBF, LDBF #### [place] [address] APTTon 04-14-2025 aPTT Coag (Bld) [Time] 28.2 s Normal 25.0-35.0 [facility] Comment on above: Result Comment: For Heparin anticoagulation therapy, the recommended therapeutic range is: 54-77 seconds (APTT Correlation with Anti-Xa therapeutic range of 0.3-0.7 units/ml). PLEASE REFERENCE THE PHARMACY PROTOCOL FOR DOSING. Performed By: #### A PTT, PRO #### [place] [id number] [facility] 04-14-2025 BUN/Creatinine Ratio 32.4 ratio High 10.0-22.[address] [facility] Comment on above: Performed By: #### T MADHAVI #### [address] [address] Calcium [Mass/Vol] 8.6 mg/dL Low 8.7-10.4 [facility] [facility] Comment on above: Performed By: #### T MADHAVI #### [place] [id number] Chloride [Moles/Vol] 98 mmol/L Normal 98-[address] [facility] MAIN Comment on above: Performed By: #### T MADHAVI #### [place] [id number] CO2 [Moles/Vol] 40 mmol/L Critically abnormal 22-32 [facility] MAIN Comment on above: Performed By: #### T MADHAVI #### [place] [id number] Creatinine [Mass/Vol] 1.45 mg/dL High 0.60-1.40 [facility] MAIN Comment on above: Result Comment: Test ing performed on [employer] analyzer using enzymatic creatinine methodology. Performed By: #### T MADHAVI #### [place] [id number] Electrolyte Balance 5.0 mEq/L Normal 4.0-15.0 [facility] MAIN Comment on above: Performed By: #### T MADHAVI #### [place] [id number] Glucose [Mass/Vol] 88 mg/dL Normal 82-115 [facility] MAIN Comment on above: Performed By: #### T MADHAVI #### [place] [id number] Potassium [Moles/Vol] 4.3 mmol/L Normal 3.5-5.0 [facility] MAIN Comment on above: Performed By: #### T MADHAVI #### [place] [id number] Sodium [Moles/Vol] 143 mmol/L Normal 136-145 [facility] MAIN Comment on above: Performed By: #### T MADHAVI #### [place] [address] Urea nitrogen [Mass/Vol] 47.0 mg/dL High 8.0-22.0 [facility] MAIN Comment on above: Performed By: #### T MADHAVI #### [place] [address] CBCon 04-14-2025 Erythrocyte distribution width (RBC) [Ratio] 18.4 % High 11.5-15.5 [facility] MAIN Comment on above: Performed By: #### P ROBF, BFPR, PHBF, BFCT, GLUBF, LDBF #### [place] [address] Hematocrit (Bld) [Volume fraction] 29.0 % Low 40.0-52.0 [facility] MAIN Comment on above: Performed By: #### P ROBF, BFPR, PHBF, BFCT, GLUBF, LDBF #### [place] [address] Hgb 9.0 G/dL Low 13.0-17.5 [facility] MAIN Comment on above: Performed By: #### P ROBF, BFPR, PHBF, BFCT, GLUBF, LDBF #### [place] [address] MCH (RBC) [Entitic mass] 26.3 pg Low 27.0-33.0 [facility] MAIN Comment on above: Performed By: #### P ROBF, BFPR, PHBF, BFCT, GLUBF, LDBF #### [place] [address] MCHC 31.0 G/dL Low 32.0-36.0 [facility] MAIN Comment on above: Performed By: #### P ROBF, BFPR, PHBF, BFCT, GLUBF, LDBF #### [place] [address] MCV (RBC) [Entitic vol] 84.9 fL Normal 81.0-100.0 [facility] MAIN Comment on above: Performed By: #### P ROBF, BFPR, PHBF, BFCT, GLUBF, LDBF #### [place] [id number] [place] [address] Platelet 165 10 3/mcL Normal 150-450 [facility] MAIN Comment on above: Performed By: #### P ROBF, BFPR, PHBF, BFCT, GLUBF, LDBF #### [place] [id number] [place] [address] Platelet mean volume (Bld) [Entitic vol] 7.8 fL Normal 6.4-10.5 [facility] MAIN Comment on above: Performed By: #### P ROBF, BFPR, PHBF, BFCT, GLUBF, LDBF #### [place] [id number] RBC 3.41 10 6/mcL Low 4.50-6.00 [facility] MAIN Comment on above: Performed By: #### P ROBF, BFPR, PHBF, BFCT, GLUBF, LDBF #### [place] [id number] WBC 10.8 10 3/mcL Normal 4.5-10.8 [facility] MAIN Comment on above: Performed By: #### P ROBF, BFPR, PHBF, BFCT, GLUBF, LDBF #### [place] [address] LABORATORYOrdered By: SYSTEM SYSTEM on 04-14-2025 PT [...] Comment on above: Interpretive Data: Tyler mckeon [employer] (CHEST, 1992, 102:312S-25S) [...] ng/L Male: 0-54 ng/L Testing performed on [employer] IM analyzer using direct chemiluminescent technology. No Panel Informationon 04-14 Legionella Urine Ag Presumptive negative for L. pneumophila serogroup 1 antigen in urine, suggesting no recent or current infection. Legionnaire's disease cannot be ruled out since other serogroups and species may also cause disease. [facility] Work Phone: Streptococcus Pneumoniae Urine Antig Presumptive negative for pneumococcal pneumonia, suggesting no current or recent pneumococcal infection. Infection due to Strep pneumoniae cannot be ruled out since the antigen present in the sample may be below the detection limit of the test. [facility] Work Phone: Comment on above: This test has not be en evaluated on patients taking antibiotics for greater than 24 hours or on patients who have recently completed an antibiotic regimen. The accuracy of this test has not been proven in young children. PROon 04-14-2025 INR Coag (PPP) [Relative time] 1.2 {INR} Normal [facility] MAIN Comment on above: Result Comment: [employer] (CHEST, 1992, 102:312S-25S) recommended therapeutic range for oral anticoagulant therapy is: LOW RISK: Prophylaxis of venous thrombosis INR: 2.0-3.0 Treatment of pulmonary embolism 2.0-3.0 Prevention of systemic embolism 2.0-3.0 HIGH RISK: Mechanical prosthetic valves 2.5-3.5 Performed By: #### A PTT, PRO #### [facility] [address] [place] [address] PT Coag (PPP) [Time] 13.9 s Normal 9.0-14.[address] [facility] MAIN Comment on above: Result Comment: Effe ctive 03/03/08, Protime results may be affected by some antibiotics (i.e. Ciprofloxacin, Azithromycin, Bactrim) which may potentiate the action of oral anticoagulants, with further increases in Protime/INR. Performed By: #### A PTT, PRO #### [address] [address] TROPHSon 04-14-2025 High Sensitivity Troponin I 160 ng/L High 0-54 [facility] MAIN Comment on above: Result Comment: High Sensitive Troponin I Reference Ranges: Female: 0-34 ng/L Male: 0-54 ng/L Testing performed on [employer] IM analyzer using direct chemiluminescent technology. Performed By: #### T ROPHS #### [address] [address] XR CHEST 1 VIEWon 04-14-2025 XR CHEST [...] 04/14/2025 7:00:29 AM Ordering Provider: COLLEEN Francois [facility] MAIN .Auto Diffon 04-13-2025 Basophil, Absolute 0.0 10 3/mcL Normal 0.0-0.[address] [facility] MAIN Comment on above: Performed By: #### P ROBF, BFPR, PHBF, BFCT, GLUBF, LDBF #### [address] [address] Basophils/100 WBC (Bld) 0.0 % Normal 0.0-2.5 [facility] MAIN Comment on above: Performed By: #### P ROBF, BFPR, PHBF, BFCT, GLUBF, LDBF #### [address] [address] Eosinophil, Absolute 0.0 10 3/mcL Normal 0.0-0.7 [facility] MAIN Comment on above: Performed By: #### P ROBF, BFPR, PHBF, BFCT, GLUBF, LDBF #### [address] [address] Eosinophils/100 WBC (Bld) 0.1 % Normal 0.0-6.0 [facility] MAIN Comment on above: Performed By: #### P ROBF, BFPR, PHBF, BFCT, GLUBF, LDBF #### [address] [address] Lymphocyte, Absolute 0.3 10 3/mcL Low 0.9-4.3 [facility] MAIN Comment on above: Performed By: #### P ROBF, BFPR, PHBF, BFCT, GLUBF, LDBF #### [address] [address] Lymphocytes/100 WBC (Bld) 3.0 % Low 20.0-40.0 [facility] MAIN Comment on above: Performed By: #### P ROBF, BFPR, PHBF, BFCT, GLUBF, LDBF #### [address] [address] Monocyte, Absolute 0.7 10 3/mcL Normal 0.1-1.[address] [facility] MAIN Comment on above: Performed By: #### P ROBF, BFPR, PHBF, BFCT, GLUBF, LDBF #### [address] [address] Monocytes/100 WBC (Bld) 6.3 % Normal 2.0-13.0 [facility] MAIN Comment on above: Performed By: #### P ROBF, BFPR, PHBF, BFCT, GLUBF, LDBF #### [address] [address] Neutrophils/100 WBC (Bld) 90.6 % High 50.0-75.0 [facility] MAIN Comment on above: Performed By: #### P ROBF, BFPR, PHBF, BFCT, GLUBF, LDBF #### [address] [address] .GFRon 04-13-2025 Estimated Glomerular Filtration Rate 48 ml/min/1.73sqm Normal [facility] MAIN Comment on above: Result Comment: [...] ROBF, BFPR, PHBF, BFCT, GLUBF, LDBF #### [place] [address] .NEUABSon 04-13-2025 Neutrophil, Absolute 10.5 10 3/mcL High 2.3-8.1 [facility] MAIN Comment on above: Performed By: #### P ROBF, BFPR, PHBF, BFCT, GLUBF, LDBF #### [place] [address] CBCon 04-13-2025 Erythrocyte distribution width (RBC) [Ratio] 17.7 % High 11.5-15.5 [facility] MAIN Comment on above: Performed By: #### P ROBF, BFPR, PHBF, BFCT, GLUBF, LDBF #### [place] [address] Hematocrit (Bld) [Volume fraction] 29.7 % Low 40.0-52.0 [facility] MAIN Comment on above: Performed By: #### P ROBF, BFPR, PHBF, BFCT, GLUBF, LDBF #### [place] [address] Hgb 9.4 G/dL Low 13.0-17.5 [facility] MAIN Comment on above: Performed By: #### P ROBF, BFPR, PHBF, BFCT, GLUBF, LDBF #### [place] [address] MCH (RBC) [Entitic mass] 26.6 pg Low 27.0-33.0 [facility] MAIN Comment on above: Performed By: #### P ROBF, BFPR, PHBF, BFCT, GLUBF, LDBF #### [place] [address] MCHC 31.6 G/dL Low 32.0-36.0 [facility] MAIN Comment on above: Performed By: #### P ROBF, BFPR, PHBF, BFCT, GLUBF, LDBF #### [place] [address] MCV (RBC) [Entitic vol] 84.3 fL Normal 81.0-100.0 [facility] MAIN Comment on above: Performed By: #### P ROBF, BFPR, PHBF, BFCT, GLUBF, LDBF #### [place] [address] Platelet 201 10 3/mcL Normal 150-450 [facility] MAIN Comment on above: Performed By: #### P ROBF, BFPR, PHBF, BFCT, GLUBF, LDBF #### [place] [address] Platelet mean volume (Bld) [Entitic vol] 8.1 fL Normal 6.4-10.5 [facility] MAIN Comment on above: Performed By: #### P ROBF, BFPR, PHBF, BFCT, GLUBF, LDBF #### [place] [address] RBC 3.52 10 6/mcL Low 4.50-6.00 [facility] MAIN Comment on above: Performed By: #### P ROBF, BFPR, PHBF, BFCT, GLUBF, LDBF #### [place] [address] WBC 11.6 10 3/mcL High 4.5-10.8 [facility] MAIN Comment on above: Performed By: #### P ROBF, BFPR, PHBF, BFCT, GLUBF, LDBF #### [place] [id number] CMPon 04-13-2025 Albumin Level 2.9 G/dL Low 3.2-4.8 [facility] MAIN Comment on above: Performed By: #### P ROBF, BFPR, PHBF, BFCT, GLUBF, LDBF #### [place] [address] Albumin/Globulin [Mass ratio] 0.9 {ratio} Normal 0.9-1.6 [facility] MAIN Comment on above: Performed By: #### P ROBF, BFPR, PHBF, BFCT, GLUBF, LDBF #### [place] [address] ALP [Catalytic activity/Vol] 58 U/L Normal 38-126 [facility] MAIN Comment on above: Performed By: #### P ROBF, BFPR, PHBF, BFCT, GLUBF, LDBF #### [place] [address] ALT [Catalytic activity/Vol] 32 U/L Normal 12-55 [facility] MAIN Comment on above: Performed By: #### P ROBF, BFPR, PHBF, BFCT, GLUBF, LDBF #### [place] [phone] AST [Catalytic activity/Vol] 26 U/L Normal 8-34 [facility] MAIN Comment on above: Performed By: #### P ROBF, BFPR, PHBF, BFCT, GLUBF, LDBF #### [place] [address] Bili Total 0.50 mg/dL Normal 0.20-1.20 [facility] MAIN Comment on above: Result Comment: Use of this assay is not recommended for patients undergoing treatment with eltrombopag due to the potential for falsely elevated results. Performed By: #### P ROBF, BFPR, PHBF, BFCT, GLUBF, LDBF #### [place] [address] BUN/Creatinine Ratio 33.3 ratio High 10.0-22.[address] [facility] MAIN Comment on above: Performed By: #### P ROBF, BFPR, PHBF, BFCT, GLUBF, LDBF #### [address] [address] Calcium [Mass/Vol] 8.8 mg/dL Normal 8.7-10.4 [facility] MAIN Comment on above: Performed By: #### P ROBF, BFPR, PHBF, BFCT, GLUBF, LDBF #### [place] [phone] Chloride [Moles/Vol] 100 mmol/L Normal 98-[address] [facility] MAIN Comment on above: Performed By: #### P ROBF, BFPR, PHBF, BFCT, GLUBF, LDBF #### [place] [id number] CO2 [Moles/Vol] 39 mmol/L High 22-32 [facility] MAIN Comment on above: Performed By: #### P ROBF, BFPR, PHBF, BFCT, GLUBF, LDBF #### [place] [id number] Creatinine [Mass/Vol] 1.47 mg/dL High 0.60-1.40 [facility] MAIN Comment on above: Result Comment: Test ing performed on [employer] analyzer using enzymatic creatinine methodology. Performed By: #### P ROBF, BFPR, PHBF, BFCT, GLUBF, LDBF #### [place] [id number] Electrolyte Balance 4.0 mEq/L Normal 4.0-15.0 [facility] MAIN Comment on above: Performed By: #### P ROBF, BFPR, PHBF, BFCT, GLUBF, LDBF #### [address] [address] Globulin 3.4 G/dL Normal 2.5-4.2 [facility] MAIN Comment on above: Performed By: #### P ROBF, BFPR, PHBF, BFCT, GLUBF, LDBF #### [place] [address] Glucose [Mass/Vol] 192 mg/dL High 82-115 [facility] MAIN Comment on above: Performed By: #### P ROBF, BFPR, PHBF, BFCT, GLUBF, LDBF #### [address] [address] Potassium [Moles/Vol] 4.5 mmol/L Normal 3.5-5.0 [facility] MAIN Comment on above: Performed By: #### P ROBF, BFPR, PHBF, BFCT, GLUBF, LDBF #### [address] [address] Sodium [Moles/Vol] 143 mmol/L Normal 136-145 [facility] MAIN Comment on above: Performed By: #### P ROBF, BFPR, PHBF, BFCT, GLUBF, LDBF #### [place] [id number] Total Protein 6.3 G/dL Normal 5.7-8.2 [facility] MAIN Comment on above: Performed By: #### P ROBF, BFPR, PHBF, BFCT, GLUBF, LDBF #### [place] [address] Urea nitrogen [Mass/Vol] 49.0 mg/dL High 8.0-22.0 [facility] MAIN Comment on above: Performed By: #### P ROBF, BFPR, PHBF, BFCT, GLUBF, LDBF #### [address] [address] LABORATORYOrdered By: SYSTEM SYSTEM on 04-13-2025 Troponin I.cardiac DL <= 0.01 ng/mL [Mass/Vol] 174 ng/L High 0 - 54 ng/L ADM SS Comment on above: Interpretive Data: High Sensitive Troponin I Reference Ranges: Female: 0-34 ng/L Male: 0-54 ng/L Testing performed on [employer] analyzer using direct chemiluminescent technology. Lactate [Moles/Vol] [...] Comment on above: Interpretive Data: Tyler mckeon [employer] (CHEST, 1992, 102:312S-25S) [...] ng/L Male: 0-54 ng/L Testing performed on [employer] IM analyzer using direct chemiluminescent technology. LABORATORYOrdered [...] Lactic Acid Lvl 1.2 mmol/L Normal 0.5-2.2 [facility] MAIN Comment on above: Performed By: #### P ROBF, BFPR, PHBF, BFCT, GLUBF, LDBF #### [place] [address] MGon 04-13-2025 Magnesium [Mass/Vol] 2.2 mg/dL Normal 1.6-2.[address] [facility] MAIN Comment on above: Performed By: #### P ROBF, BFPR, PHBF, BFCT, GLUBF, LDBF #### [place] [id number] MYCOon 04-13-2025 Mycoplasma IgG Positive Normal [facility] MAIN Comment on above: Result Comment: INTE RPRETATION OF MYCOPLASMA IgG BY EIA: Negative: No detectable M. pneumoniae IgG antibody. Positive: Mycoplasma pneumoniae IgG antibody Detected. Equivocal: Equivocal for IgG antibodies to Mycoplasma pneumoniae. Suggest repeat testing in 10-14 days. Performed By: #### P ROBF, BFPR, PHBF, BFCT, GLUBF, LDBF #### [place] [address] Mycoplasma IgM Negative Normal [facility] MAIN Comment on above: Result Comment: [...] ROBF, BFPR, PHBF, BFCT, GLUBF, LDBF #### [place] [address] No Panel Informationon 04-13 Microscopic examination of blood, culture Culture has been received in lab and is no growth to date. Routine cultures are held for 5 days. [facility] Work Phone: PBNPon 04-13-2025 Natriuretic peptide B (Bld) [Mass/Vol] 6315 pg/mL High 0-1800 [facility] MAIN Comment on above: Performed By: #### P ROBF, BFPR, PHBF, BFCT, GLUBF, LDBF #### [place] [id number] PROon 04-13-2025 INR Coag (PPP) [Relative time] 1.3 {INR} Normal [facility] MAIN Comment on above: Result Comment: [employer] (CHEST, 1991, 102:312S-25S) recommended therapeutic range for oral anticoagulant therapy is: LOW RISK: Prophylaxis of venous thrombosis INR: 2.0-3.0 Treatment of pulmonary embolism 2.0-3.0 Prevention of systemic embolism 2.0-3.0 HIGH RISK: Mechanical prosthetic valves 2.5-3.5 Performed By: #### P ROBF, BFPR, PHBF, BFCT, GLUBF, LDBF #### [place] [address] PT Coag (PPP) [Time] 14.5 s High 9.0-14.[address] [facility] MAIN Comment on above: Result Comment: Effe ctive 03/03/08, Protime results may be affected by some antibiotics (i.e. Ciprofloxacin, Azithromycin, Bactrim) which may potentiate the action of oral anticoagulants, with further increases in Protime/INR. Performed By: #### P ROBF, BFPR, PHBF, BFCT, GLUBF, LDBF #### [address] 04-13-2025 High Sensitivity Troponin I 174 ng/L [address] MAIN Comment on above: Result Comment: High Sensitive Troponin I Reference Ranges: Female: 0-34 ng/L Male: 0-54 ng/L Testing performed on [employer] IM analyzer using direct chemiluminescent technology. Performed By: #### P ROBF, BFPR, PHBF, BFCT, GLUBF, LDBF #### [place] [address] High Sensitivity Troponin I 141 ng/L [address] MAIN Comment on above: Result Comment: High Sensitive Troponin I Reference Ranges: Female: 0-34 ng/L Male: 0-54 ng/L Testing performed on [employer] IM analyzer using direct chemiluminescent technology. Performed By: #### P ROBF, BFPR, PHBF, BFCT, GLUBF, LDBF #### [facility] [address] [place] [address] XR CHEST 1 VIEWon 04-13-2025 XR CHEST [...] 2:58:50 PM Ordering Provider: COLLEEN DOE Normal [facility] MAIN 12 Lead EKGon 04-12-2025 12 Lead EKG Normal [facility] Absolute lymphocyte countOrd ered By: Daniel Brownlee on 04-12-2025 Lymphocytes Auto (Unsp spec) [#/Vol] 0.34 10*3/uL Low 0.83-4.51 [facility] Anion gap in Serum or Plasma Ordered By: Daniel Brownlee on 04-12-2025 Anion gap [Moles/Vol] 9 mmol/L 5-15 [facility] Automated lymphocyte count a s percentage of total leukocytesOrdered By: Daniel Brownlee on 04-12-2025 Lymphocytes/100 WBC Auto (Unsp spec) 2.5 % Low 19-41 [facility] BUN/creatinine ratioOrdered By: Daniel Brownlee on 04-12-2025 Urea nitrogen/Creatinine [Mass ratio] 41.9 mg/mg High 10-20 [facility] Basic Metabolic Profile (BMP )on 04-12-2025 BUN/CRE 41.9 RATIO High 10-20 [facility] Comment on above: Performed By: #### L 503.7505, L500.2500 ####[facility] [address] [place], [address] Calcium [Mass/Vol] 8.7 mg/dL Normal 7.6-11.0 [facility] Comment on above: Performed By: #### L 503.7505, L500.2500 ####[facility] [address] [place], [address] Chloride [Moles/Vol] 93 mmol/L Low 98-108 [facility] Comment on above: Performed By: #### L 503.7505, L500.2500 ####[facility] [address] [place], [address] CO2 [Moles/Vol] 36.5 mmol/L High 21.0-32.0 [facility] Comment on above: Performed By: #### L 503.7505, L500.2500 ####[facility] [address] [place], [address] Creatinine [Mass/Vol] 1.43 mg/dL High 0.70-1.20 [facility] Comment on above: Performed By: #### L 503.7505, L500.2500 ####[facility] [address] [place], [address] ECRCL 37.18 ml/min Low 50-250 [facility] Comment on above: Performed By: #### L 503.7505, L500.2500 ####[facility] [address] [place], [address] GAP 9 Normal 5-15 [facility] Comment on above: Performed By: #### L 503.7505, L500.2500 ####[facility] [address] [place], [address] GFR/1.73 sq M.predicted among non-blacks MDRD (S/P/Bld) [Vol rate/Area] 50 mL/min/{1.73_m2} Low >60 [facility] Comment on above: Result Comment: mL/m in/1.73m2 CKD-EPI Creatinine Equation (2020) Performed By: #### L 503.7505, L500.2500 ####[facility] [address] [place], [address] Glucose [Mass/Vol] 189 mg/dL High 70-99 [facility] Comment on above: Performed By: #### L 503.7505, L500.2500 ####[facility] [address] [place], [address] Potassium [Moles/Vol] 4.3 mmol/L Normal 3.3-5.1 [facility] Comment on above: Performed By: #### L 503.7505, L500.2500 ####[facility] [address] [place], [address] Sodium [Moles/Vol] 138 mmol/L Normal 133-145 [facility] Comment on above: Performed By: #### L 503.7505, L500.2500 ####[facility] [address] [place], [address] Urea nitrogen [Mass/Vol] 60 mg/dL High 4-19 [facility] Comment on above: Performed By: #### L 503.7505, L500.2500 ####[facility] [address] [place], [address] Basophil percentageOrdered B y: Daniel Brownlee on 04-12-2025 Basophils/100 WBC (Bld) 0.1 % 0-[address] [facility] Bedside Glucoseon 04-12-2025 FINGERSTICK GLU 143 mg/dL High 74-106 [facility] Comment on above: Result Comment: KODY GEMENT OF PATIENT CARE PER NURSING PROTOCOL Performed By: #### L 501.080 ####[facility] [address] [place], [address] FINGERSTICK GLU 222 mg/dL High 74-106 [facility] Comment on above: Result Comment: KODY GEMENT OF PATIENT CARE PER NURSING PROTOCOL Performed By: #### L 501.080 ####[facility] [address] [place], [address] FINGERSTICK GLU 222 mg/dL High 74-106 [facility] Comment on above: Result Comment: KODY GEMENT OF PATIENT CARE PER NURSING PROTOCOL Performed By: #### L 501.080 ####[facility] [address] [place], [address] Body Fluid Culton 04-12-2025 BFC Culture exhibits no growth. Normal [facility] Comment on above: Performed By: #### M 100.2900, M100.4001, L350.1000, L200.0200, M100.2000 ####[facility] [address] [place], [address] CBC W/Diff, Automatedon 08- Absolute Lymph 0.34 X10 3/uL Low 0.83-4.51 [facility] Comment on above: Performed By: #### L 100.0100, L501.4021 ####[facility] [address] [place], [address] Absolute Neut 12.7 X10 3/uL High 2.0-7.7 [facility] Comment on above: Performed By: #### L 100.0100, L501.4021 ####[facility] [address] [place], [address] Basophils/100 WBC (Bld) 0.1 % Normal 0-[address] [facility] Comment on above: Performed By: #### L 100.0100, L501.4021 ####[facility] [address] [place], [address] Eosinophils/100 WBC (Bld) 0.0 % Normal 0-5 [facility] Comment on above: Performed By: #### L 100.0100, L501.4021 ####[facility] [address] [place], [address] Erythrocyte distribution width (RBC) [Ratio] 16.6 % High 11.6-14.6 [facility] Comment on above: Performed By: #### L 100.0100, L501.4021 ####[facility] [address] [place], [address] Hematocrit (Bld) [Volume fraction] 29.6 % Low 40-54 [facility] Comment on above: Performed By: #### L 100.0100, L501.4021 ####[facility] [address] [place], [address] Hemoglobin (Bld) [Mass/Vol] 9.1 g/dL Low 13.0-16.5 [facility] Comment on above: Performed By: #### L 100.0100, L501.4021 ####[facility] [address] [place], [address] IG% 0.700 Normal 0.0-0.9 [facility] Comment on above: Result Comment: IG% - Immature Granulocytes (promyelocytes, myelocytes andmetamyelocytes) > 1% indicates that a LEFT SHIFT is Present. Performed By: #### L 100.0100, L501.4021 ####[facility] [id number] [place], [address] Lymphocytes/100 WBC (Bld) 2.5 % Low 19-41 [facility] Comment on above: Performed By: #### L 100.0100, L501.4021 ####[facility] [id number] [place], [address] MCH (RBC) [Entitic mass] 27.2 pg Normal 27.0-32.0 [facility] Comment on above: Performed By: #### L 100.0100, L501.4021 ####[facility] [address] [place], [address] MCHC (RBC) [Mass/Vol] 30.7 g/dL Low 32-36 [facility] Comment on above: Performed By: #### L 100.0100, L501.4021 ####[facility] [address] [place], [address] MCV (RBC) [Entitic vol] 88.4 fL Normal 80-[address] [facility] Comment on above: Performed By: #### L 100.0100, L501.4021 ####[facility] [address] [place], [address] Monocytes/100 WBC (Bld) 4.2 % Normal 0-10 [facility] Comment on above: Performed By: #### L 100.0100, L501.4021 ####[facility] [address] [place], [address] Neutrophils/100 WBC (Bld) 92.5 % High 47-70 [facility] Comment on above: Performed By: #### L 100.0100, L501.4021 ####[facility] [address] [place], [address] Nucleated RBC (Bld) [#/Vol] 0 10*3/uL Normal 0-5 [facility] Comment on above: Performed By: #### L 100.0100, L501.4021 ####[facility] [address] [place], [address] Platelet mean volume (Bld) [Entitic vol] 9.9 fL Normal 6.2-12.0 [facility] Comment on above: Performed By: #### L 100.0100, L501.4021 ####[facility] [address] [place], [address] Platelets (Bld) [#/Vol] 193 10*3/uL Normal 150-450 [facility] Comment on above: Performed By: #### L 100.0100, L501.4021 ####[facility] [address] [place], [address] RBC (Bld) [#/Vol] 3.35 10*6/uL Low 4.6-6.2 [facility] Comment on above: Performed By: #### L 100.0100, L501.4021 ####[facility] [address] [place], [address] RDW SD 53.6 fl High 35.1-43.9 [facility] Comment on above: Performed By: #### L 100.0100, L501.4021 ####[facility] [address] [place], [address] WBC (Bld) [#/Vol] 13.7 10*3/uL High 4.4-11.0 [facility] Comment on above: Performed By: #### L 100.0100, L501.4021 ####[facility] [address] [place], [address] Carbon dioxide, total [Moles /volume] in Central venous bloodOrdered By: Daniel Brownlee on 04-12-2025 CO2 [Moles/Vol] 36.5 mmol/L High 21.0-32.0 [facility] Chest PA and Lateralon 04-12 Chest PA and Lateral Normal [facility] Chest without Contraston 08- 24-2025 Chest without Contrast Normal [facility] Chloride assayOrdered By: Kimo Brownlee on 04-12-2025 Chloride [Moles/Vol] 93 mmol/L Low 98-108 [facility] Culture, Anaerobic Any Sourc talat 04-12-2025 CUAN No anaerobic bacteri a isolated. Normal [facility] Comment on above: Performed By: #### M 100.2900, M100.4001, L350.1000, L200.0200, M100.2000 ####[facility] [address] [place], [address] Emergency Department Summary on 04-12-2025 Emergency Department Summary Normal [facility] Eosinophil percentageOrdered By: Daniel Brownlee on 04-12-2025 Eosinophils/100 WBC (Bld) 0.0 % 0-5 [facility] Erythrocyte distribution wid th ratioOrdered By: Daniel Brownlee on 04-12-2025 Erythrocyte distribution width (RBC) [Ratio] 16.6 % High 11.6-14.6 [facility] Erythrocyte distribution wid th standard deviationOrdered By: Daniel Brownlee on 04-12-2025 Erythrocyte distribution width (RBC) [Ratio] 53.6 fl High 35.1-43.9 [facility] Glomerular filtration rate ( GFR) estimation/1.73 sq m using serum, plasma, or whole bOrdered By: Daniel Brownlee on 04-12-2025 GFR/1.73 sq M.predicted among non-blacks MDRD (S/P/Bld) [Vol rate/Area] 50 mL/min/{1.73_m2} Low >60 [facility] Glucose measurement at bedsi deOrdered By: Valdez Olivo on 04-12-2025 Glucose [Mass/Vol] 143 mg/dL High 74-106 [facility] Hematocrit Auto (Bld) [Volum e fraction]Ordered By: Daniel Brownlee on 04-12-2025 Hematocrit (Bld) [Volume fraction] 29.6 % Low 40-54 [facility] Hemoglobin measurementOrdere d By: Daniel Brownlee on 04-12-2025 Hemoglobin (Bld) [Mass/Vol] 9.1 g/dL Low 13.0-16.5 [facility] Immature granulocytes/100 WB C Auto (Bld)Ordered By: Daniel Brownlee on 04-12-2025 Immature granulocytes/100 WBC (Bld) 0.700 % 0.0-0.9 [facility] L501.4021on 04-12-2025 Trop T High Sen 103 ng/L Invalid Interpretation Code <=22 [facility] Comment on above: Result Comment: Crit ical Result(s) Called ACOLE2 at: 2036 by:RIVERA??Results read back by same. Performed By: #### L 100.0100, L501.4021 ####[facility] [address] [place], [place], [id number] MCV (mean corpuscular volume ) determinationOrdered By: Daniel Brownlee on 04-12-2025 MCV (RBC) [Entitic vol] 88.4 fL 80-[address] [facility] Mean corpuscular hemoglobin (MCH) determinationOrdered By: Daniel Brownlee on 04-12-2025 MCH (RBC) [Entitic mass] 27.2 pg 27.0-32.0 [facility] Monocyte percentageOrdered B y: Daniel Brownlee on 04-12-2025 Monocytes/100 WBC (Bld) 4.2 % 0-[address] [facility] Natriuretic peptide.B prohor girish N-Terminal [Mass/volume] in Serum or PlasmaOrdered By: Daniel Brownlee on 04-12-2025 Natriuretic peptide.B prohormone N-Terminal [Mass/Vol] 7022 pg/mL High <1800 [facility] Neutrophil percentageOrdered By: Daniel Brownlee on 04-12-2025 Neutrophils/100 WBC (Bld) 92.5 % High 47-70 [facility] Platelet countOrdered By: Kimo Brownlee on 04-12-2025 Platelets (Bld) [#/Vol] 193 10*3/uL 150-450 [facility] Potassium measurement (mass/ volume)Ordered By: Daniel Brownlee on 04-12-2025 Potassium (Unsp spec) [Mass/Vol] 4.3 mmol/L 3.3-5.1 [facility] Pro- Brain NATRIURETIC PEPTI Adrienne 04-12-2025 Natriuretic peptide B (Bld) [Mass/Vol] 7022 pg/mL High <=1800 [facility] Comment on above: Result Comment: Hear t Failure Unlikely: < 300 pg/mLHeart Failure Likely< 50 Years: > 450 pg/mL50-75 Years: > 900 pg/mL>75 Years: > 1800 pg/mL Performed By: #### L 503.7505, L500.2500 ####[facility] [address] [place], [place], [id number] RBC Auto (Bld) [#/Vol]Ordere d By: Daniel Brownlee on 04-12-2025 RBC (Bld) [#/Vol] 3.35 10*6/uL Low 4.6-6.2 [facility] Serum creatinine measurement (mass/volume)Ordered By: Daniel Brownlee on 04-12-2025 Creatinine [Mass/Vol] 1.43 mg/dL High 0.70-1.20 [facility] Serum glucose measurement (m ass/volume)Ordered By: Daniel Brownlee on 04-12-2025 Glucose [Mass/Vol] 189 mg/dL High 70-99 [facility] Serum or plasma calcium kingsley urement (mass/volume)Ordered By: Daniel Brownlee on 04-12-2025 Calcium [Mass/Vol] 8.7 mg/dL 7.6-11.0 [facility] Serum or plasma urea nitroge n measurement (mass/volume)Ordered By: Daniel Brownlee on 04-12-2025 Urea nitrogen [Mass/Vol] 60 mg/dL High 4-19 [facility] Sodium levelOrdered By: Mickie Brownlee on 04-12-2025 Sodium [Moles/Vol] 138 mmol/L 133-145 [facility] Troponin T HS 2 HRon 025 Trop T High Sen 98 ng/L Invalid Interpretation Code <=22 [facility] Comment on above: Result Comment: Crit ical Result(s) Called ALAMMERS at: 2234 by:RIVERA??Results read back by same. Performed By: #### L 499.0042 ####[facility] [address] [place], [place], [address] Troponin T HS 4 HRon 025 Trop T High Sen Normal <=22 [facility] Comment on above: Result Comment: RAMÓN ENT DISCHARGED Performed By: #### L 499.0043 ####[facility] [address] [place], [place], [address] Troponin T.cardiac [Mass/vol ume] in Serum or Plasma by High sensitivity methodOrdered By: Daniel Brownlee on 04-12-2025 Troponin T.cardiac High sensitivity method [Mass/Vol] 98 ng/L High <22 [facility] Troponin T.cardiac High sensitivity method [Mass/Vol] 103 ng/L High <22 [facility] White blood cell (WBC) count Ordered By: Daniel Brownlee on 04-12-2025 WBC (Bld) [#/Vol] 13.7 10*3/uL High 4.4-11.0 [facility] Absolute lymphocyte countOrd ered By: Valdez Olivo on 04-11-2025 Lymphocytes Auto (Unsp spec) [#/Vol] 0.34 10*3/uL Low 0.83-4.51 [facility] Anion gap in Serum or Plasma Ordered By: Valdez Olivo on 04-11-2025 Anion gap [Moles/Vol] 10 mmol/L 5-15 [facility] Automated lymphocyte count a s percentage of total leukocytesOrdered By: Valdez Olivo on 04-11-2025 Lymphocytes/100 WBC Auto (Unsp spec) 3.3 % Low 19-41 [facility] BUN/creatinine ratioOrdered By: Valdez Olivo on 04-11-2025 Urea nitrogen/Creatinine [Mass ratio] 42.1 mg/mg High 10-20 [facility] Basic Metabolic Profile (BMP )on 04-11-2025 BUN/CRE 42.1 RATIO High 10- [facility] Comment on above: Performed By: #### L 500.2500, L100.0100 ####[facility] [address] [place], [place], [id number] Calcium [Mass/Vol] 8.6 mg/dL Normal 7.6-11.0 [facility] Comment on above: Performed By: #### L 500.2500, L100.0100 ####[facility] [address] [place], [address] Chloride [Moles/Vol] 94 mmol/L Low 98-108 [facility] Comment on above: Performed By: #### L 500.2500, L100.0100 ####[facility] [address] [place], [address] CO2 [Moles/Vol] 33.4 mmol/L High 21.0-32.0 [facility] Comment on above: Performed By: #### L 500.2500, L100.0100 ####[facility] [address] [place], [address] Creatinine [Mass/Vol] 1.62 mg/dL High 0.70-1.20 [facility] Comment on above: Performed By: #### L 500.2500, L100.0100 ####[facility] [address] [place], [address] ECRCL 32.82 ml/min Low 50-250 [facility] Comment on above: Performed By: #### L 500.2500, L100.0100 ####[facility] [address] [place], [address] GAP 10 Normal 5-15 [facility] Comment on above: Performed By: #### L 500.2500, L100.0100 ####[facility] [address] [place], [address] GFR/1.73 sq M.predicted among non-blacks MDRD (S/P/Bld) [Vol rate/Area] 43 mL/min/{1.73_m2} Low >60 [facility] Comment on above: Result Comment: mL/m in/1.73m2 CKD-EPI Creatinine Equation (2020) Performed By: #### L 500.2500, L100.0100 ####[facility] [address] [place], [address] Glucose [Mass/Vol] 176 mg/dL High 70-99 [facility] Comment on above: Performed By: #### L 500.2500, L100.0100 ####[facility] [address] [place], [address] Potassium [Moles/Vol] 4.1 mmol/L Normal 3.3-5.1 [facility] Comment on above: Performed By: #### L 500.2500, L100.0100 ####[facility] [address] [place], [address] Sodium [Moles/Vol] 138 mmol/L Normal 133-145 [facility] Comment on above: Performed By: #### L 500.2500, L100.0100 ####[facility] [address] [place], [address] Urea nitrogen [Mass/Vol] 68 mg/dL High 4-19 [facility] Comment on above: Performed By: #### L 500.2500, L100.0100 ####[facility] [address] [place], [address] BUN Normal 4-19 [facility] Comment on above: Result Comment: Canc elled via OM: Order cancelled - Patient discharged Performed By: #### L 100.0100, L500.2500 ####[facility] [address] [place], [address] BUN/CRE Normal 10-20 [facility] Comment on above: Result Comment: Canc elled via OM: Order cancelled - Patient discharged Performed By: #### L 100.0100, L500.2500 ####[facility] [address] [place], [address] Calcium Normal 7.6-11.0 [facility] Comment on above: Result Comment: Canc elled via OM: Order cancelled - Patient discharged Performed By: #### L 100.0100, L500.2500 ####[facility] [address] [place], [address] CL Normal 98-108 [facility] Comment on above: Result Comment: Canc elled via OM: Order cancelled - Patient discharged Performed By: #### L 100.0100, L500.2500 ####[facility] [address] [place], [address] CO2 Normal 21.0-32.0 [facility] Comment on above: Result Comment: Canc elled via OM: Order cancelled - Patient discharged Performed By: #### L 100.0100, L500.2500 ####[facility] [address] [place], [address] CREAT,SERUM Normal 0.70-1.20 [facility] Comment on above: Result Comment: Canc elled via OM: Order cancelled - Patient discharged Performed By: #### L 100.0100, L500.2500 ####[facility] [address] [place], [address] eGFR Normal >60 [facility] Comment on above: Result Comment: Canc elled via OM: Order cancelled - Patient discharged Performed By: #### L 100.0100, L500.2500 ####[facility] [address] [place], [address] GAP Normal 5-15 [facility] Comment on above: Result Comment: Canc elled via OM: Order cancelled - Patient discharged Performed By: #### L 100.0100, L500.2500 ####[facility] [address] [place], [address] GLU Normal 70-99 [facility] Comment on above: Result Comment: Canc elled via OM: Order cancelled - Patient discharged Performed By: #### L 100.0100, L500.2500 ####[facility] [address] [place], [address] Potassium Normal 3.3-5.1 [facility] Comment on above: Result Comment: Canc elled via OM: Order cancelled - Patient discharged Performed By: #### L 100.0100, L500.2500 ####[facility] [address] [place], [address] Basic Metabolic Profile (BMP) Normal 133-145 [facility] Comment on above: Result Comment: Canc elled via OM: Order cancelled - Patient discharged Performed By: #### L 100.0100, L500.2500 ####[facility] [address] [place], [address] Basophil percentageOrdered B y: Valdez Geovani on 04-11-2025 Basophils/100 WBC (Bld) 0.1 % 0-[address] [facility] Bedside Glucoseon 04-11-2025 FINGERSTICK GLU 323 mg/dL High 74-106 [facility] Comment on above: Result Comment: KODY GEMENT OF PATIENT CARE PER NURSING PROTOCOL Performed By: #### L 501.080 ####[facility] [address] [place], [address] FINGERSTICK GLU 166 mg/dL High 74-106 [facility] Comment on above: Result Comment: KODY GEMENT OF PATIENT CARE PER NURSING PROTOCOL Performed By: #### L 501.080 ####[facility] [address] [place], [address] FINGERSTICK GLU 273 mg/dL High 74-106 [facility] Comment on above: Result Comment: KODY GEMENT OF PATIENT CARE PER NURSING PROTOCOL Performed By: #### L 501.080 ####[facility] [address] [place], [address] CBC W/Diff, Automatedon 08-2 Absolute Lymph 0.34 X10 3/uL Low 0.83-4.51 [facility] Comment on above: Performed By: #### L 500.2500, L100.0100 ####[facility] [address] [place], [address] Absolute Neut 9.0 X10 3/uL High 2.0-7.7 [facility] Comment on above: Performed By: #### L 500.2500, L100.0100 ####[facility] [address] [place], [address] Basophils/100 WBC (Bld) 0.1 % Normal 0-[address] [facility] Comment on above: Performed By: #### L 500.2500, L100.0100 ####[facility] [address] [place], [address] Eosinophils/100 WBC (Bld) 0.0 % Normal 0-5 [facility] Comment on above: Performed By: #### L 500.2500, L100.0100 ####[facility] [address] [place], [address] Erythrocyte distribution width (RBC) [Ratio] 16.6 % High 11.6-14.6 [facility] Comment on above: Performed By: #### L 500.2500, L100.0100 ####[facility] [address] [place], [address] Hematocrit (Bld) [Volume fraction] 28.4 % Low 40-54 [facility] Comment on above: Performed By: #### L 500.2500, L100.0100 ####[facility] [address] [place], [address] Hemoglobin (Bld) [Mass/Vol] 8.7 g/dL Low 13.0-16.5 [facility] Comment on above: Performed By: #### L 500.2500, L100.0100 ####[facility] [address] [place], [address] IG% 0.600 Normal 0.0-0.9 [facility] Comment on above: Result Comment: IG% - Immature Granulocytes (promyelocytes, myelocytes andmetamyelocytes) > 1% indicates that a LEFT SHIFT is Present. Performed By: #### L 500.2500, L100.0100 ####[facility] [address] [place], [address] Lymphocytes/100 WBC (Bld) 3.3 % Low 19-41 [facility] Comment on above: Performed By: #### L 500.2500, L100.0100 ####[facility] [address] [place], [address] MCH (RBC) [Entitic mass] 26.7 pg Low 27.0-32.0 [facility] Comment on above: Performed By: #### L 500.2500, L100.0100 ####[facility] [address] [place], [address] MCHC (RBC) [Mass/Vol] 30.6 g/dL Low 32-36 [facility] Comment on above: Performed By: #### L 500.2500, L100.0100 ####[facility] [address] [place], [address] MCV (RBC) [Entitic vol] 87.1 fL Normal 80-[address] [facility] Comment on above: Performed By: #### L 500.2500, L100.0100 ####[facility] [address] [place], [address] Monocytes/100 WBC (Bld) 8.7 % Normal 0-[address] [facility] Comment on above: Performed By: #### L 500.2500, L100.0100 ####[facility] [address] [place], [address] Neutrophils/100 WBC (Bld) 87.3 % High 47-70 [facility] Comment on above: Performed By: #### L 500.2500, L100.0100 ####[facility] [address] [place], [address] Nucleated RBC (Bld) [#/Vol] 0 10*3/uL Normal 0-5 [facility] Comment on above: Performed By: #### L 500.2500, L100.0100 ####[facility] [address] [place], [address] Platelet mean volume (Bld) [Entitic vol] 10.2 fL Normal 6.2-12.0 [facility] Comment on above: Performed By: #### L 500.2500, L100.0100 ####[facility] [address] [place], [address] Platelets (Bld) [#/Vol] 186 10*3/uL Normal 150-450 [facility] Comment on above: Performed By: #### L 500.2500, L100.0100 ####[facility] [address] [place], [address] RBC (Bld) [#/Vol] 3.26 10*6/uL Low 4.6-6.2 [facility] Comment on above: Performed By: #### L 500.2500, L100.0100 ####[facility] [address] [place], [address] RDW SD 52.9 fl High 35.1-43.9 [facility] Comment on above: Performed By: #### L 500.2500, L100.0100 ####[facility] [address] [place], [address] WBC (Bld) [#/Vol] 10.3 10*3/uL Normal 4.4-11.0 [facility] Comment on above: Performed By: #### L 500.2500, L100.0100 ####[facility] [address] [facility] [place], [address] Absolute Neut Normal 2.0-7.7 [facility] Comment on above: Result Comment: Canc elled via OM: Order cancelled - Patient discharged Performed By: #### L 100.0100, L500.2500 ####[facility] [address] [place], [address] HCT Normal 40-54 [facility] Comment on above: Result Comment: Canc elled via OM: Order cancelled - Patient discharged Performed By: #### L 100.0100, L500.2500 ####[facility] [address] [place], [address] HGB Normal 13.0-16.5 [facility] Comment on above: Result Comment: Canc elled via OM: Order cancelled - Patient discharged Performed By: #### L 100.0100, L500.2500 ####[facility] [address] [place], [address] MCH Normal 27.0-32.0 [facility] Comment on above: Result Comment: Canc elled via OM: Order cancelled - Patient discharged Performed By: #### L 100.0100, L500.2500 ####[facility] [address] [place], [address] MCHC Normal 32-36 [facility] Comment on above: Result Comment: Canc elled via OM: Order cancelled - Patient discharged Performed By: #### L 100.0100, L500.2500 ####[facility] [address] [place], [address] MCV Normal 80-94 [facility] Comment on above: Result Comment: Canc elled via OM: Order cancelled - Patient discharged Performed By: #### L 100.0100, L500.2500 ####[facility] [address] [place], [address] NEUT% Normal 47-70 [facility] Comment on above: Result Comment: Canc elled via OM: Order cancelled - Patient discharged Performed By: #### L 100.0100, L500.2500 ####[facility] [address] [place], [address] PLT Normal 150-450 [facility] Comment on above: Result Comment: Canc elled via OM: Order cancelled - Patient discharged Performed By: #### L 100.0100, L500.2500 ####[facility] [address] [place], [address] RBC Normal 4.6-6.2 [facility] Comment on above: Result Comment: Canc elled via OM: Order cancelled - Patient discharged Performed By: #### L 100.0100, L500.2500 ####[facility] [address] [place], [address] RDW CV Normal 11.6-14.6 [facility] Comment on above: Result Comment: Canc elled via OM: Order cancelled - Patient discharged Performed By: #### L 100.0100, L500.2500 ####[facility] [address] [place], [address] RDW SD Normal 35.1-43.9 [facility] Comment on above: Result Comment: Canc elled via OM: Order cancelled - Patient discharged Performed By: #### L 100.0100, L500.2500 ####[facility] [address] [place], [address] WBC Normal 4.4-11.0 [facility] Comment on above: Result Comment: Canc elled via OM: Order cancelled - Patient discharged Performed By: #### L 100.0100, L500.2500 ####[facility] [address] [place], [address] COVID 19 AG RAPID (KHURRAM Becerril)on 04-11-2025 SARS-CoV-2 (COVID-19) RNA BRYAN+probe Ql (Unsp spec) Normal [facility] Comment on above: Performed By: #### M 100.505 ####[facility] [address] [place], [place], [id number] COVID-19 virus antigen assay Ordered By: Valdez Geovani on 04-11-2025 SARS-CoV-2 (COVID-19) Ag IA.rapid Ql (Resp) [facility] Carbon dioxide, total [Moles /volume] in Central venous bloodOrdered By: Valdez Geovani on 04-11-2025 CO2 [Moles/Vol] 33.4 mmol/L High 21.0-32.0 [facility] Chloride assayOrdered By: Aiden Olivo on 04-11-2025 Chloride [Moles/Vol] 94 mmol/L Low 98-108 [facility] Eosinophil percentageOrdered By: Valdez Olivo on 04-11-2025 Eosinophils/100 WBC (Bld) 0.0 % 0-5 [facility] Erythrocyte distribution wid th ratioOrdered By: Valdez Olivo on 04-11-2025 Erythrocyte distribution width (RBC) [Ratio] 16.6 % High 11.6-14.6 [facility] Erythrocyte distribution wid th standard deviationOrdered By: Valdez Olivo on 04-11-2025 Erythrocyte distribution width (RBC) [Ratio] 52.9 fl High 35.1-43.9 [facility] Glomerular filtration rate ( GFR) estimation/1.73 sq m using serum, plasma, or whole bOrdered By: Valdez Olivo on 04-11-2025 GFR/1.73 sq M.predicted among non-blacks MDRD (S/P/Bld) [Vol rate/Area] 43 mL/min/{1.73_m2} Low >60 [facility] Gram Stainon 04-11-2025 GS Centrifuged Specimen ? Culture performed on centrifuged specimen Gram Stain 1+ White Blood Cells No organisms seen Normal [facility] Comment on above: Performed By: #### M 100.2900, M100.4001, L350.1000, L200.0200, M100.2000 ####[facility] [address] [place], [address] Hematocrit Auto (Bld) [Volum e fraction]Ordered By: Valdez Geovani on 04-11-2025 Hematocrit (Bld) [Volume fraction] 28.4 % Low 40-54 [facility] Hemoglobin measurementOrdere d By: Valdez Olivo on 04-11-2025 Hemoglobin (Bld) [Mass/Vol] 8.7 g/dL Low 13.0-16.5 [facility] Immature granulocytes/100 WB C Auto (Bld)Ordered By: Valdez Olivo on 04-11-2025 Immature granulocytes/100 WBC (Bld) 0.600 % 0.0-0.9 [facility] MCV (mean corpuscular volume ) determinationOrdered By: Valdez Olivo on 04-11-2025 MCV (RBC) [Entitic vol] 87.1 fL 80-[address] [facility] Mean corpuscular hemoglobin (MCH) determinationOrdered By: Valdez Olivo 04-11-2025 MCH (RBC) [Entitic mass] 26.7 pg Low 27.0-32.0 [facility] Monocyte percentageOrdered B y: Valdez Geovani on 04-11-2025 Monocytes/100 WBC (Bld) 8.7 % 0-[address] [facility] Neutrophil percentageOrdered By: Valdez Lariosok on 04-11-2025 Neutrophils/100 WBC (Bld) 87.3 % High 47-70 [facility] Platelet countOrdered By: Aiden Olivo on 04-11-2025 Platelets (Bld) [#/Vol] 186 10*3/uL 150-450 [facility] Potassium measurement (mass/ volume)Ordered By: Valdez Olivo on 04-11-2025 Potassium (Unsp spec) [Mass/Vol] 4.1 mmol/L 3.3-5.1 [facility] RBC Auto (Bld) [#/Vol]Ordere d By: Valdez Olivo on 04-11-2025 RBC (Bld) [#/Vol] 3.26 10*6/uL Low 4.6-6.2 [facility] Serum creatinine measurement (mass/volume)Ordered By: Valdez Olivo on 04-11-2025 Creatinine [Mass/Vol] 1.62 mg/dL High 0.70-1.20 [facility] Serum glucose measurement (m ass/volume)Ordered By: Valdez Olivo on 04-11-2025 Glucose [Mass/Vol] 176 mg/dL High 70-99 [facility] Serum or plasma calcium kingsley urement (mass/volume)Ordered By: Valdez lOivo on 04-11-2025 Calcium [Mass/Vol] 8.6 mg/dL 7.6-11.0 [facility] Serum or plasma urea nitroge n measurement (mass/volume)Ordered By: Valdez Olivo on 04-11-2025 Urea nitrogen [Mass/Vol] 68 mg/dL High 4-19 [facility] Sodium levelOrdered By: Valdez Olivo on 04-11-2025 Sodium [Moles/Vol] 138 mmol/L 133-145 [facility] White blood cell (WBC) count Ordered By: Valdez Olivo on 04-11-2025 WBC (Bld) [#/Vol] 10.3 10*3/uL 4.4-11.0 [facility] Absolute lymphocyte countOrd ered By: Nicola Roman on 04-10-2025 Lymphocytes Auto (Unsp spec) [#/Vol] 0.17 10*3/uL Low 0.83-4.51 [facility] Activated partial thrombopla stin time (aPTT) in platelet poor plasma by coagulation aOrdered By: Nicola Marroquin on 04-10-2025 aPTT Coag (PPP) [Time] 29.5 s 24.1-36.2 [facility] Anaerobic cultureOrdered By: Nicola Roman on 04-10-2025 Bacteria identified Anaer cx Nom (Unsp spec) No anaerobic bacteria isolated. [facility] Anion gap in Serum or Plasma Ordered By: Nicola Roman on 04-10-2025 Anion gap [Moles/Vol] 12 mmol/L 5-15 [facility] Automated lymphocyte count a s percentage of total leukocytesOrdered By: Nicola Roman on 04-10-2025 Lymphocytes/100 WBC Auto (Unsp spec) 1.9 % Low 19-41 [facility] BUN/creatinine ratioOrdered By: Nicola Roman on 04-10-2025 Urea nitrogen/Creatinine [Mass ratio] 44.4 mg/mg High 10-20 [facility] Basic Metabolic Profile (BMP )on 04-10-2025 BUN/CRE 44.4 RATIO High 10-20 [facility] Comment on above: Performed By: #### L 100.0100, L500.2500 ####[facility] [address] [place], [address] Calcium [Mass/Vol] 8.4 mg/dL Normal 7.6-11.0 [facility] Comment on above: Performed By: #### L 100.0100, L500.2500 ####[facility] [address] [place], [address] Chloride [Moles/Vol] 92 mmol/L Low 98-108 [facility] Comment on above: Performed By: #### L 100.0100, L500.2500 ####[facility] [address] [place], [address] CO2 [Moles/Vol] 32.1 mmol/L High 21.0-32.0 [facility] Comment on above: Performed By: #### L 100.0100, L500.2500 ####[facility] [address] [place], [address] Creatinine [Mass/Vol] 1.71 mg/dL High 0.70-1.20 [facility] Comment on above: Performed By: #### L 100.0100, L500.2500 ####[facility] [address] [place], [address] ECRCL 31.09 ml/min Low 50-250 [facility] Comment on above: Performed By: #### L 100.0100, L500.2500 ####[facility] [address] [place], [address] GAP 12 Normal 5-15 [facility] Comment on above: Performed By: #### L 100.0100, L500.2500 ####[facility] [address] [place], [address] GFR/1.73 sq M.predicted among non-blacks MDRD (S/P/Bld) [Vol rate/Area] 40 mL/min/{1.73_m2} Low >60 [facility] Comment on above: Result Comment: mL/m in/1.73m2 CKD-EPI Creatinine Equation (2020) Performed By: #### L 100.0100, L500.2500 ####[facility] [address] [place], [address] Glucose [Mass/Vol] 244 mg/dL High 70-99 [facility] Comment on above: Performed By: #### L 100.0100, L500.2500 ####[facility] [address] [place], [address] Potassium [Moles/Vol] 4.1 mmol/L Normal 3.3-5.1 [facility] Comment on above: Performed By: #### L 100.0100, L500.2500 ####[facility] [address] [place], [address] Sodium [Moles/Vol] 137 mmol/L Normal 133-145 [facility] Comment on above: Performed By: #### L 100.0100, L500.2500 ####[facility] [address] [place], [address] Urea nitrogen [Mass/Vol] 76 mg/dL High 4-19 [facility] Comment on above: Performed By: #### L 100.0100, L500.2500 ####[facility] [address] [place], [address] Basophil percentageOrdered B y: Nicola Roman on 04-10-2025 Basophils/100 WBC (Bld) 0.1 % 0-[address] [facility] Bedside Glucoseon 04-10-2025 FINGERSTICK GLU 341 mg/dL High 74-106 [facility] Comment on above: Result Comment: KODY GEMENT OF PATIENT CARE PER NURSING PROTOCOL Performed By: #### L 501.080 ####[facility] [address] [place], [address] FINGERSTICK GLU 327 mg/dL High 74-106 [facility] Comment on above: Result Comment: KODY GEMENT OF PATIENT CARE PER NURSING PROTOCOL Performed By: #### L 501.080 ####[facility] [address] [facility] [address] FINGERSTICK GLU 346 mg/dL High 74-106 [facility] Comment on above: Result Comment: KODY GEMENT OF PATIENT CARE PER NURSING PROTOCOL Performed By: #### L 501.080 ####[facility] [address] [facility] [address] FINGERSTICK GLU 236 mg/dL High [address] [place] [address] Comment on above: Result Comment: KODY GEMENT OF PATIENT CARE PER NURSING PROTOCOL Performed By: #### L 501.080 ####[facility] [address] [place], [address] Body Fluid Cell Count+Diffon 04-10-2025 PATH COMM/BF Reviewed Normal [facility] Comment on above: Order Comment: The r eference range and other method performancespecifications have not been established for this bodyfluid. The test must be integrated into the clinicalcontext for interpretation. Result Comment: FURNITURE MAKER MYRANDA INFLAMMATORY CELLS. OCCASIONAL MESOTHELIAL CELLSNOTED. NO MALIGNANT CELLS IDENTIFIED.Ludmila GOMEZ MD 04/10/25 @1730 AMENDED REPORT 04/10/25 173 PATH COMM/BF previously reported as: May follow Performed By: #### M 100.2900, M100.4001, L350.1000, L200.0200, M100.2000 ####[facility] [address] [place], [address] Body fluid appearance (nomin al result)Ordered By: Nicola Roman on 04-10-2025 Appearance (Body fld) CLEAR [facility] Body fluid color determinati onOrdered By: Nicola Roman on 04-10-2025 Color (Body fld) YELLOW [facility] Body fluid cultureOrdered By : Nicola Roman on 04-10-2025 Microbial culture, body fluid Culture exhibits no growth. [facility] Body fluid lactate dehydroge nase measurement (enzymatic activity/volume) by pyruvateOrdered By: Nicola Roman on 04-10-2025 LDH Pyruvate to lactate reaction (Body fld) [Catalytic activity/Vol] 61 Units/L Not Establ. [facility] Body fluid leukocytes count (number/volume)Ordered By: Nicola Roman on 04-10-2025 WBC (Body fld) [#/Vol] 0.128 10*3/uL [facility] Body fluid lymphocytes/100 l eukocytesOrdered By: Nicola Roman on 04-10-2025 Lymphocytes/100 WBC (Body fld) 44 % [facility] Body fluid macrophage countO rdered By: Nicola Roman on 04-10-2025 Macrophages (Body fld) [#/Vol] 41 % [facility] Body fluid mononuclear cell percentageOrdered By: Nicola Roman on 04-10-2025 Mononuclear cells/100 WBC (Body fld) 94.6 % [facility] Body fluid protein measureme nt (mass/volume)Ordered By: Nicola Roman on 04-10-2025 Protein (Body fld) [Mass/Vol] 2.1 g/dL Not Establ. [facility] Body fluid segmented neutrop hils count (number/volume)Ordered By: Nicola Roman on 04-10-2025 Segmented neutrophils (Body fld) [#/Vol] 6 % [facility] Body fluid total cell countO rdered By: Nicola Roman on 04-10-2025 Cells Counted Total (Body fld) [#] 0.154 10^3/ul [facility] CBC W/Diff, Automatedon 03-21 Absolute Lymph 0.17 X10 3/uL Low 0.83-4.51 [facility] Comment on above: Performed By: #### L 100.0100, L500.2500 ####[facility] [address] [place], [address] Absolute Neut 8.2 X10 3/uL High 2.0-7.7 [facility] Comment on above: Performed By: #### L 100.0100, L500.2500 ####[facility] [address] [place], [address] Basophils/100 WBC (Bld) 0.1 % Normal 0-[address] [facility] Comment on above: Performed By: #### L 100.0100, L500.2500 ####[facility] [address] [place], [address] Eosinophils/100 WBC (Bld) 0.0 % Normal 0-5 [facility] Comment on above: Performed By: #### L 100.0100, L500.2500 ####[facility] [address] [place], [address] Erythrocyte distribution width (RBC) [Ratio] 17.1 % High 11.6-14.6 [facility] Comment on above: Performed By: #### L 100.0100, L500.2500 ####[facility] [address] [place], [address] Hematocrit (Bld) [Volume fraction] 28.2 % Low 40-54 [facility] Comment on above: Performed By: #### L 100.0100, L500.2500 ####[facility] [address] [place], [address] Hemoglobin (Bld) [Mass/Vol] 8.7 g/dL Low 13.0-16.5 [facility] Comment on above: Performed By: #### L 100.0100, L500.2500 ####[facility] [address] [place], [address] IG% 0.900 Normal 0.0-0.9 [facility] Comment on above: Result Comment: IG% - Immature Granulocytes (promyelocytes, myelocytes andmetamyelocytes) > 1% indicates that a LEFT SHIFT is Present. Performed By: #### L 100.0100, L500.2500 ####[facility] [address] [place], [address] Lymphocytes/100 WBC (Bld) 1.9 % Low 19-41 [facility] Comment on above: Performed By: #### L 100.0100, L500.2500 ####[facility] [address] [place], [address] MCH (RBC) [Entitic mass] 26.9 pg Low 27.0-32.0 [facility] Comment on above: Performed By: #### L 100.0100, L500.2500 ####[facility] [address] [place], [address] MCHC (RBC) [Mass/Vol] 30.9 g/dL Low 32-36 [facility] Comment on above: Performed By: #### L 100.0100, L500.2500 ####[facility] [address] [place], [address] MCV (RBC) [Entitic vol] 87.0 fL Normal 80-[address] [facility] Comment on above: Performed By: #### L 100.0100, L500.2500 ####[facility] [address] [place], [address] Monocytes/100 WBC (Bld) 5.5 % Normal 0-[address] [facility] Comment on above: Performed By: #### L 100.0100, L500.2500 ####[facility] [address] [place], [address] Neutrophils/100 WBC (Bld) 91.6 % High 47-70 [facility] Comment on above: Performed By: #### L 100.0100, L500.2500 ####[facility] [address] [place], [address] Nucleated RBC (Bld) [#/Vol] 0.2 10*3/uL Normal 0-5 [facility] Comment on above: Performed By: #### L 100.0100, L500.2500 ####[facility] [address] [place], [address] Platelet mean volume (Bld) [Entitic vol] 10.0 fL Normal 6.2-12.0 [facility] Comment on above: Performed By: #### L 100.0100, L500.2500 ####[facility] [address] [place], [address] Platelets (Bld) [#/Vol] 208 10*3/uL Normal 150-450 [facility] Comment on above: Performed By: #### L 100.0100, L500.2500 ####[facility] [address] [place], [address] RBC (Bld) [#/Vol] 3.24 10*6/uL Low 4.6-6.2 [facility] Comment on above: Performed By: #### L 100.0100, L500.2500 ####[facility] [address] [place], [address] RDW SD 53.5 fl High 35.1-43.9 [facility] Comment on above: Performed By: #### L 100.0100, L500.2500 ####[facility] [address] [place], [address] WBC (Bld) [#/Vol] 9.0 10*3/uL Normal 4.4-11.0 [facility] Comment on above: Performed By: #### L 100.0100, L500.2500 ####[facility] [address] [place], [address] Carbon dioxide, total [Moles /volume] in Central venous bloodOrdered By: Nicola Roman on 04-10-2025 CO2 [Moles/Vol] 32.1 mmol/L High 21.0-32.0 [facility] Chest without Contraston Chest without Contrast Normal [facility] Chloride assayOrdered By: Stephen Roman on 04-10-2025 Chloride [Moles/Vol] 92 mmol/L Low 98-108 [facility] Cytology report of Body flui d Cyto stainOrdered By: Nicola Roman on 04-10-2025 Cytology report Cyto stain Doc (Body fld) SEE PATHOLOGY REPORT [facility] Cytology, Body Fluid / CSFon 04-10-2025 CYTOLOGY,BF/CSF SEE PATHOLOGY REPORT Normal [facility] Comment on above: Result Comment: Spec imen submitted to Anatomical Pathology Department fortesting. Performed By: #### M 100.2900, M100.4001, L350.1000, L200.0200, M100.2000 ####[facility] [address] [place], [place], [id number] Eosinophil percentageOrdered By: Nicola Roman on 04-10-2025 Eosinophils/100 WBC (Bld) 0.0 % 0-5 [facility] Erythrocyte distribution wid th ratioOrdered By: Nicola Roman on 04-10-2025 Erythrocyte distribution width (RBC) [Ratio] 17.1 % High 11.6-14.6 [facility] Erythrocyte distribution wid th standard deviationOrdered By: Nicola Roman on 04-10-2025 Erythrocyte distribution width (RBC) [Ratio] 53.5 fl High 35.1-43.9 [facility] Glomerular filtration rate ( GFR) estimation/1.73 sq m using serum, plasma, or whole bOrdered By: Nicola Roman on 04-10-2025 GFR/1.73 sq M.predicted among non-blacks MDRD (S/P/Bld) [Vol rate/Area] 40 mL/min/{1.73_m2} Low >60 [facility] Glucose measurement at bedsi deOrdered By: Nicola Roman on 04-10-2025 Glucose [Mass/Vol] 327 mg/dL High 74-106 [facility] Glucose, Body Fluidon 2024 GLUC, BODY FLD 274 mg/dL Normal Not Establ. [facility] Comment on above: Performed By: #### L 504.0250, L503.0100, L503.0300 ####[facility] [address] [place], [address] Gram stainOrdered By: Nicola Roman on 04-10-2025 Microscopic observation Gram stain Nom (Unsp spec) [facility] Hematocrit Auto (Bld) [Volum e fraction]Ordered By: Nicola Roman on 04-10-2025 Hematocrit (Bld) [Volume fraction] 28.2 % Low 40-54 [facility] Hemoglobin measurementOrdere d By: Nicola Roman on 04-10-2025 Hemoglobin (Bld) [Mass/Vol] 8.7 g/dL Low 13.0-16.5 [facility] Immature granulocytes/100 WB C Auto (Bld)Ordered By: Nicola Roman on 04-10-2025 Immature granulocytes/100 WBC (Bld) 0.900 % 0.0-0.9 [facility] LDHon 04-10-2025 LDH 179 U/L Normal 87-241 [facility] Comment on above: Order Comment: FG1 3 O Performed By: #### L 504.2610 ####[facility] [address] [place], [address] LDH,Body Fluidon 04-10-2025 LDH,BF 61 Units/L Normal Not Establ. [facility] Comment on above: Performed By: #### L 504.0250, L503.0100, L503.0300 ####[facility] [address] [place], [address] MCV (mean corpuscular volume ) determinationOrdered By: Nicola Roman on 04-10-2025 MCV (RBC) [Entitic vol] 87.0 fL 80-[address] [facility] Mean corpuscular hemoglobin (MCH) determinationOrdered By: Nicola Roman on 04-10-2025 MCH (RBC) [Entitic mass] 26.9 pg Low 27.0-32.0 [facility] Monocyte detectionOrdered By : Nicola Roman on 04-10-2025 Monocytes/100 WBC (Bld) 9 % [facility] Monocyte percentageOrdered B y: Nicola Roman on 04-10-2025 Monocytes/100 WBC (Bld) 5.5 % 0-[address] [facility] Neutrophil percentageOrdered By: Nicola Roman on 04-10-2025 Neutrophils/100 WBC (Bld) 91.6 % High 47-70 [facility] No Panel InformationOrdered By: Nicola Roman on 04-10-2025 495 /mm3 [facility] SEE COMMENT [facility] Pacemaker Checkon 04-10-2025 Pacemaker Check Normal [facility] Partial Thromboplast Timeon 04-10-2025 aPTT Coag (Bld) [Time] 29.5 s Normal 24.1-36.2 [facility] Comment on above: Performed By: #### L 300.4310, L300.3900 ####[facility] [address] [place], [place], [address] Pathologist interpretation o f Body fluid testsOrdered By: Nicola Roman on 04-10-2025 Pathologist interpretation (Body fld) [Interp] Reviewed [facility] Platelet countOrdered By: tSephen Roman on 04-10-2025 Platelets (Bld) [#/Vol] 208 10*3/uL 150-450 [facility] Potassium measurement (mass/ volume)Ordered By: Nicola Roman on 04-10-2025 Potassium (Unsp spec) [Mass/Vol] 4.1 mmol/L 3.3-5.1 [facility] Protein, Body Fluidon 2024 Protein [Mass/Vol] 2.1 g/dL Normal Not Establ. [facility] Comment on above: Performed By: #### L 504.0250, L503.0100, L503.0300 ####[facility] [address] [place], [place], [id number] Prothrombin Time w/INRon INR Coag (PPP) [Relative time] 1.3 {INR} Normal [facility] Comment on above: Performed By: #### L 300.4310, L300.3900 ####[facility] [address] [place], [address] PT Coag (PPP) [Time] 16.7 s High 11.7-14.9 [facility] Comment on above: Performed By: #### L 300.4310, L300.3900 ####[facility] [address] [place], [place], [id number] Prothrombin timeOrdered By: Nicola Marroquin on 04-10-2025 PT Coag (PPP) [Time] 16.7 s High 11.7-14.9 [facility] RBC Auto (Bld) [#/Vol]Ordere d By: Nicola Roman on 04-10-2025 RBC (Bld) [#/Vol] 3.24 10*6/uL Low 4.6-6.2 [facility] Serum creatinine measurement (mass/volume)Ordered By: Nicola Roman on 04-10-2025 Creatinine [Mass/Vol] 1.71 mg/dL High 0.70-1.20 [facility] Serum glucose measurement (m ass/volume)Ordered By: Nicola Roman on 04-10-2025 Glucose [Mass/Vol] 244 mg/dL High 70-99 [facility] Serum or plasma calcium kingsley urement (mass/volume)Ordered By: Nicola Roamn on 04-10-2025 Calcium [Mass/Vol] 8.4 mg/dL 7.6-11.0 [facility] Serum or plasma urea nitroge n measurement (mass/volume)Ordered By: Nicola Roman on 04-10-2025 Urea nitrogen [Mass/Vol] 76 mg/dL High 4-19 [facility] Sodium levelOrdered By: Jaspal Roman on 04-10-2025 Sodium [Moles/Vol] 137 mmol/L 133-145 [facility] Special Stain Group IIon Special Stain Group II Normal [facility] Comment on above: Performed By: #### P SSII ####[facility] [address] [place], [address] Specimen source identificati on of body fluidOrdered By: Nicola Roman on 04-10-2025 Specimen source Nom (Body fld) THORACENTESIS [facility] Thoracentesis W USon 025 Thoracentesis W US Normal [facility] White blood cell (WBC) count Ordered By: Nicola Roman on 04-10-2025 WBC (Bld) [#/Vol] 9.0 10*3/uL 4.4-11.0 [facility] 12 Lead EKGon 04-09-2025 12 Lead EKG Normal [facility] Basic Metabolic Profile (BMP )on 04-09-2025 BUN/CRE 37.7 RATIO High 10-20 [facility] Comment on above: Performed By: #### L 501.2300, L100.0100, L500.2500, L501.5200 ####[facility] [address] [place], [address] Calcium [Mass/Vol] 8.4 mg/dL Normal 7.6-11.0 [facility] Comment on above: Performed By: #### L 501.2300, L100.0100, L500.2500, L501.5200 ####[facility] [address] [place], [address] Chloride [Moles/Vol] 92 mmol/L Low 98-108 [facility] Comment on above: Performed By: #### L 501.2300, L100.0100, L500.2500, L501.5200 ####[facility] [address] [place], [address] CO2 [Moles/Vol] 31.9 mmol/L Normal 21.0-32.0 [facility] Comment on above: Performed By: #### L 501.2300, L100.0100, L500.2500, L501.5200 ####[facility] [address] [place], [address] Creatinine [Mass/Vol] 1.95 mg/dL High 0.70-1.20 [facility] Comment on above: Performed By: #### L 501.2300, L100.0100, L500.2500, L501.5200 ####[facility] [address] [place], [address] ECRCL 27.26 ml/min Low 50-250 [facility] Comment on above: Performed By: #### L 501.2300, L100.0100, L500.2500, L501.5200 ####[facility] [address] [place], [address] GAP 12 Normal 5-15 [facility] Comment on above: Performed By: #### L 501.2300, L100.0100, L500.2500, L501.5200 ####[facility] [address] [place], [address] GFR/1.73 sq M.predicted among non-blacks MDRD (S/P/Bld) [Vol rate/Area] 34 mL/min/{1.73_m2} Low >60 [facility] Comment on above: Result Comment: mL/m in/1.73m2 CKD-EPI Creatinine Equation (2020) Performed By: #### L 501.2300, L100.0100, L500.2500, L501.5200 ####[facility] [address] [place], [address] Glucose [Mass/Vol] 232 mg/dL High 70-99 [facility] Comment on above: Performed By: #### L 501.2300, L100.0100, L500.2500, L501.5200 ####[facility] [address] [place], [address] Potassium [Moles/Vol] 3.9 mmol/L Normal 3.3-5.1 [facility] Comment on above: Performed By: #### L 501.2300, L100.0100, L500.2500, L501.5200 ####[facility] [address] [place], [address] Sodium [Moles/Vol] 135 mmol/L Normal 133-145 [facility] Comment on above: Performed By: #### L 501.2300, L100.0100, L500.2500, L501.5200 ####[facility] [address] [place], [address] Urea nitrogen [Mass/Vol] 74 mg/dL High 4-19 [facility] Comment on above: Performed By: #### L 501.2300, L100.0100, L500.2500, L501.5200 ####[facility] [address] [place], [address] Bedside Glucoseon 04-09-2025 FINGERSTICK GLU 316 mg/dL High 74-106 [facility] Comment on above: Result Comment: KODY GEMENT OF PATIENT CARE PER NURSING PROTOCOL Performed By: #### L 501.080 ####[facility] [address] [place], [address] FINGERSTICK GLU 209 mg/dL High 74-106 [facility] Comment on above: Result Comment: KODY GEMENT OF PATIENT CARE PER NURSING PROTOCOL Performed By: #### L 501.080 ####[facility] [address] [place], [address] FINGERSTICK GLU 273 mg/dL High 74-106 [facility] Comment on above: Result Comment: KODY GEMENT OF PATIENT CARE PER NURSING PROTOCOL Performed By: #### L 501.080 ####[facility] [address] [place], [address] CBC W/Diff, Automatedon 08-2 Absolute Lymph 0.19 X10 3/uL Low 0.83-4.51 [facility] Comment on above: Performed By: #### L 501.2300, L100.0100, L500.2500, L501.5200 ####[facility] [address] [place], [address] Absolute Neut 6.3 X10 3/uL Normal 2.0-7.7 [facility] Comment on above: Performed By: #### L 501.2300, L100.0100, L500.2500, L501.5200 ####[facility] [address] [place], [address] Basophils/100 WBC (Bld) 0.1 % Normal 0-[address] [facility] Comment on above: Performed By: #### L 501.2300, L100.0100, L500.2500, L501.5200 ####[facility] [address] [place], [address] Eosinophils/100 WBC (Bld) 0.0 % Normal 0-5 [facility] Comment on above: Performed By: #### L 501.2300, L100.0100, L500.2500, L501.5200 ####[facility] [address] [place], [address] Erythrocyte distribution width (RBC) [Ratio] 16.9 % High 11.6-14.6 [facility] Comment on above: Performed By: #### L 501.2300, L100.0100, L500.2500, L501.5200 ####[facility] [address] [place], [address] Hematocrit (Bld) [Volume fraction] 27.7 % Low 40-54 [facility] Comment on above: Performed By: #### L 501.2300, L100.0100, L500.2500, L501.5200 ####[facility] [address] [place], [address] Hemoglobin (Bld) [Mass/Vol] 8.6 g/dL Low 13.0-16.5 [facility] Comment on above: Performed By: #### L 501.2300, L100.0100, L500.2500, L501.5200 ####[facility] [address] [place], [address] IG% 0.600 Normal 0.0-0.9 [facility] Comment on above: Result Comment: IG% - Immature Granulocytes (promyelocytes, myelocytes andmetamyelocytes) > 1% indicates that a LEFT SHIFT is Present. Performed By: #### L 501.2300, L100.0100, L500.2500, L501.5200 ####[facility] [address] [place], [address] Lymphocytes/100 WBC (Bld) 2.8 % Low 19-41 [facility] Comment on above: Performed By: #### L 501.2300, L100.0100, L500.2500, L501.5200 ####[facility] [address] [place], [address] MCH (RBC) [Entitic mass] 27.0 pg Normal 27.0-32.0 [facility] Comment on above: Performed By: #### L 501.2300, L100.0100, L500.2500, L501.5200 ####[facility] [address] [place], [address] MCHC (RBC) [Mass/Vol] 31.0 g/dL Low 32-36 [facility] Comment on above: Performed By: #### L 501.2300, L100.0100, L500.2500, L501.5200 ####[facility] [address] [place], [address] MCV (RBC) [Entitic vol] 87.1 fL Normal 80-[address] [facility] Comment on above: Performed By: #### L 501.2300, L100.0100, L500.2500, L501.5200 ####[facility] [address] [place], [address] Monocytes/100 WBC (Bld) 4.7 % Normal 0-[address] [facility] Comment on above: Performed By: #### L 501.2300, L100.0100, L500.2500, L501.5200 ####[facility] [address] [place], [address] Neutrophils/100 WBC (Bld) 91.8 % High 47-70 [facility] Comment on above: Performed By: #### L 501.2300, L100.0100, L500.2500, L501.5200 ####[facility] [address] [place], [address] Nucleated RBC (Bld) [#/Vol] 0.3 10*3/uL Normal 0-5 [facility] Comment on above: Performed By: #### L 501.2300, L100.0100, L500.2500, L501.5200 ####[facility] [address] [place], [address] Platelet mean volume (Bld) [Entitic vol] 10.1 fL Normal 6.2-12.0 [facility] Comment on above: Performed By: #### L 501.2300, L100.0100, L500.2500, L501.5200 ####[facility] [address] [place], [address] Platelets (Bld) [#/Vol] 203 10*3/uL Normal 150-450 [facility] Comment on above: Performed By: #### L 501.2300, L100.0100, L500.2500, L501.5200 ####[facility] [address] [place], [address] RBC (Bld) [#/Vol] 3.18 10*6/uL Low 4.6-6.2 [facility] Comment on above: Performed By: #### L 501.2300, L100.0100, L500.2500, L501.5200 ####[facility] [address] [place], [address] RDW SD 53.1 fl High 35.1-43.9 [facility] Comment on above: Performed By: #### L 501.2300, L100.0100, L500.2500, L501.5200 ####[facility] [address] [place], [address] WBC (Bld) [#/Vol] 6.9 10*3/uL Normal 4.4-11.0 [facility] Comment on above: Performed By: #### L 501.2300, L100.0100, L500.2500, L501.5200 ####[facility] [address] [place], [address] CVS/PACEMAKERon 04-09-2025 CVS/PACEMAKER Normal [facility] Chest 1 View (Portable)on Chest 1 View (Portable) Normal [facility] Electrocardiogram reportOrde red By: Orly Mitchell on 04-09-2025 EKG study [facility] Work Phone: Magnesiumon 04-09-2025 Magnesium [Mass/Vol] 2.2 mg/dL Normal 1.5-2.2 [facility] Comment on above: Performed By: #### L 501.2300, L100.0100, L500.2500, L501.5200 ####[facility] [address] [place], [address] Magnesium measurement (mass/ volume)Ordered By: Nicola Roman on 04-09-2025 Magnesium (Unsp spec) [Mass/Vol] 2.2 mg/dL 1.5-2.2 [facility] Phosphoruson 04-09-2025 Phosphate [Mass/Vol] 3.9 mg/dL Normal 2.7-4.5 [facility] Comment on above: Performed By: #### L 501.2300, L100.0100, L500.2500, L501.5200 ####[facility] [address] [place], [address] Basic Metabolic Profile (BMP )on 04-08-2025 BUN/CRE 33.8 RATIO High - [facility] Comment on above: Performed By: #### L 100.0100, L500.2500 ####[facility] [address] [place], [address] Calcium [Mass/Vol] 8.6 mg/dL Normal 7.6-11.0 [facility] Comment on above: Performed By: #### L 100.0100, L500.2500 ####[facility] [address] [place], [address] Chloride [Moles/Vol] 95 mmol/L Low 98-108 [facility] Comment on above: Performed By: #### L 100.0100, L500.2500 ####[facility] [address] [place], [address] CO2 [Moles/Vol] 32.0 mmol/L Normal 21.0-32.0 [facility] Comment on above: Performed By: #### L 100.0100, L500.2500 ####[facility] [address] [place], [address] Creatinine [Mass/Vol] 1.91 mg/dL High 0.70-1.20 [facility] Comment on above: Performed By: #### L 100.0100, L500.2500 ####[facility] [address] [place], [address] ECRCL 27.84 ml/min Low 50-250 [facility] Comment on above: Performed By: #### L 100.0100, L500.2500 ####[facility] [address] [place], [address] GAP 11 Normal 5-15 [facility] Comment on above: Performed By: #### L 100.0100, L500.2500 ####[facility] [address] [place], [address] GFR/1.73 sq M.predicted among non-blacks MDRD (S/P/Bld) [Vol rate/Area] 35 mL/min/{1.73_m2} Low >60 [facility] Comment on above: Result Comment: mL/m in/1.73m2 CKD-EPI Creatinine Equation (2020) Performed By: #### L 100.0100, L500.2500 ####[facility] [address] [place], [address] Glucose [Mass/Vol] 240 mg/dL High 70-99 [facility] Comment on above: Performed By: #### L 100.0100, L500.2500 ####[facility] [address] [place], [address] Potassium [Moles/Vol] 4.0 mmol/L Normal 3.3-5.1 [facility] Comment on above: Performed By: #### L 100.0100, L500.2500 ####[facility] [address] [place], [address] Sodium [Moles/Vol] 138 mmol/L Normal 133-145 [facility] Comment on above: Performed By: #### L 100.0100, L500.2500 ####[facility] [address] [place], [address] Urea nitrogen [Mass/Vol] 65 mg/dL High 4-19 [facility] Comment on above: Performed By: #### L 100.0100, L500.2500 ####[facility] [address] [place], [address] Bedside Glucoseon 04-08-2024 FINGERSTICK GLU 216 mg/dL High 74-106 [facility] Comment on above: Result Comment: KODY GEMENT OF PATIENT CARE PER NURSING PROTOCOL Performed By: #### L 501.080 ####[facility] [address] [place], [address] FINGERSTICK GLU 270 mg/dL High 74-106 [facility] Comment on above: Result Comment: KODY GEMENT OF PATIENT CARE PER NURSING PROTOCOL Performed By: #### L 501.080 ####[facility] [address] [place], [address] FINGERSTICK GLU 199 mg/dL High 74-106 [facility] Comment on above: Result Comment: KODY GEMENT OF PATIENT CARE PER NURSING PROTOCOL Performed By: #### L 501.080 ####[facility] [address] [place], [address] CBC W/Diff, Automatedon 08-2 0-2024 Absolute Lymph 0.24 X10 3/uL Low 0.83-4.51 [facility] Comment on above: Performed By: #### L 100.0100, L500.2500 ####[facility] [address] [place], [address] Absolute Neut 6.3 X10 3/uL Normal 2.0-7.7 [facility] Comment on above: Performed By: #### L 100.0100, L500.2500 ####[facility] [address] [place], [address] Basophils/100 WBC (Bld) 0.0 % Normal 0-[address] [facility] Comment on above: Performed By: #### L 100.0100, L500.2500 ####[facility] [address] [place], [address] Eosinophils/100 WBC (Bld) 0.0 % Normal 0-5 [facility] Comment on above: Performed By: #### L 100.0100, L500.2500 ####[facility] [address] [place], [address] Erythrocyte distribution width (RBC) [Ratio] 17.2 % High 11.6-14.6 [facility] Comment on above: Performed By: #### L 100.0100, L500.2500 ####[facility] [address] [place], [address] Hematocrit (Bld) [Volume fraction] 27.0 % Low 40-54 [facility] Comment on above: Performed By: #### L 100.0100, L500.2500 ####[facility] [address] [place], [address] Hemoglobin (Bld) [Mass/Vol] 8.3 g/dL Low 13.0-16.5 [facility] Comment on above: Performed By: #### L 100.0100, L500.2500 ####[facility] [address] [place], [address] IG% 0.600 Normal 0.0-0.9 [facility] Comment on above: Result Comment: IG% - Immature Granulocytes (promyelocytes, myelocytes andmetamyelocytes) > 1% indicates that a LEFT SHIFT is Present. Performed By: #### L 100.0100, L500.2500 ####[facility] [address] [place], [address] Lymphocytes/100 WBC (Bld) 3.5 % Low 19-41 [facility] Comment on above: Performed By: #### L 100.0100, L500.2500 ####[facility] [address] [place], [address] MCH (RBC) [Entitic mass] 26.9 pg Low 27.0-32.0 [facility] Comment on above: Performed By: #### L 100.0100, L500.2500 ####[facility] [address] [place], [address] MCHC (RBC) [Mass/Vol] 30.7 g/dL Low 32-36 [facility] Comment on above: Performed By: #### L 100.0100, L500.2500 ####[facility] [address] [place], [address] MCV (RBC) [Entitic vol] 87.4 fL Normal 80-[address] [facility] Comment on above: Performed By: #### L 100.0100, L500.2500 ####[facility] [address] [place], [address] Monocytes/100 WBC (Bld) 4.5 % Normal 0-[address] [facility] Comment on above: Performed By: #### L 100.0100, L500.2500 ####[facility] [address] [place], [address] Neutrophils/100 WBC (Bld) 91.4 % High 47-70 [facility] Comment on above: Performed By: #### L 100.0100, L500.2500 ####[facility] [address] [place], [address] Nucleated RBC (Bld) [#/Vol] 0 10*3/uL Normal 0-5 [facility] Comment on above: Performed By: #### L 100.0100, L500.2500 ####[facility] [address] [place], [address] Platelet mean volume (Bld) [Entitic vol] 10.7 fL Normal 6.2-12.0 [facility] Comment on above: Performed By: #### L 100.0100, L500.2500 ####[facility] [address] [place], [address] Platelets (Bld) [#/Vol] 192 10*3/uL Normal 150-450 [facility] Comment on above: Performed By: #### L 100.0100, L500.2500 ####[facility] [address] [place], [address] RBC (Bld) [#/Vol] 3.09 10*6/uL Low 4.6-6.2 [facility] Comment on above: Performed By: #### L 100.0100, L500.2500 ####[facility] [address] [place], [address] RDW SD 54.2 fl High 35.1-43.9 [facility] Comment on above: Performed By: #### L 100.0100, L500.2500 ####[facility] [address] [place], [address] WBC (Bld) [#/Vol] 6.9 10*3/uL Normal 4.4-11.0 [facility] Comment on above: Performed By: #### L 100.0100, L500.2500 ####[facility] [address] [place], [address] Consultation - Cardiologyon 04-08-2025 Consultation - Cardiology Normal [facility] Basic Metabolic Profile (BMP )on 04-07-2025 BUN/CRE 26.3 RATIO High 10-20 [facility] Comment on above: Performed By: #### L 500.2500, L501.2300 ####[facility] [address] [place], [address] Calcium [Mass/Vol] 8.8 mg/dL Normal 7.6-11.0 [facility] Comment on above: Performed By: #### L 500.2500, L501.2300 ####[facility] [address] [place], [address] Chloride [Moles/Vol] 96 mmol/L Low 98-108 [facility] Comment on above: Performed By: #### L 500.2500, L501.2300 ####[facility] [address] [place], [address] CO2 [Moles/Vol] 29.8 mmol/L Normal 21.0-32.0 [facility] Comment on above: Performed By: #### L 500.2500, L501.2300 ####[facility] [address] [place], [address] Creatinine [Mass/Vol] 2.21 mg/dL High 0.70-1.20 [facility] Comment on above: Performed By: #### L 500.2500, L501.2300 ####[facility] [address] [place], [address] ECRCL 24.06 ml/min Low 50-250 [facility] Comment on above: Performed By: #### L 500.2500, L501.2300 ####[facility] [address] [place], [address] GAP 11 Normal 5-15 [facility] Comment on above: Performed By: #### L 500.2500, L501.2300 ####[facility] [address] [place], [address] GFR/1.73 sq M.predicted among non-blacks MDRD (S/P/Bld) [Vol rate/Area] 29 mL/min/{1.73_m2} Low >60 [facility] Comment on above: Result Comment: mL/m in/1.73m2 CKD-EPI Creatinine Equation (2020) Performed By: #### L 500.2500, L501.2300 ####[facility] [address] [place], [address] Glucose [Mass/Vol] 171 mg/dL High 70-99 [facility] Comment on above: Performed By: #### L 500.2500, L501.2300 ####[facility] [address] [place], [address] Potassium [Moles/Vol] 4.6 mmol/L Normal 3.3-5.1 [facility] Comment on above: Performed By: #### L 500.2500, L501.2300 ####[facility] [address] [place], [address] Sodium [Moles/Vol] 137 mmol/L Normal 133-145 [facility] Comment on above: Performed By: #### L 500.2500, L501.2300 ####[facility] [address] [place], [address] Urea nitrogen [Mass/Vol] 58 mg/dL High -19 [facility] Comment on above: Performed By: #### L 500.2500, L501.2300 ####[facility] [address] [place], [address] Bedside Glucoseon 04-07-2025 FINGERSTICK GLU 272 mg/dL High 74-106 [facility] Comment on above: Result Comment: KODY GEMENT OF PATIENT CARE PER NURSING PROTOCOL Performed By: #### L 501.080 ####[facility] [address] [place], [address] FINGERSTICK GLU 249 mg/dL High 74-106 [facility] Comment on above: Result Comment: KODY GEMENT OF PATIENT CARE PER NURSING PROTOCOL Performed By: #### L 501.080 ####[facility] [address] [place], [address] FINGERSTICK GLU 303 mg/dL High 74-106 [facility] Comment on above: Result Comment: KODY GEMENT OF PATIENT CARE PER NURSING PROTOCOL Performed By: #### L 501.080 ####[facility] [address] [place], [address] FINGERSTICK GLU 162 mg/dL High 74-106 [facility] Comment on above: Result Comment: KODY STRONG OF PATIENT CARE PER NURSING PROTOCOL Performed By: #### L 501.080 ####[facility] [address] [place], [address] CBC W/Diff, Automatedon - Absolute Lymph 0.20 X10 3/uL Low 0.83-4.51 [facility] Comment on above: Performed By: #### L 100.0100 ####[facility] [address] [place], [address] Absolute Neut 5.9 X10 3/uL Normal 2.0-7.7 [facility] Comment on above: Performed By: #### L 100.0100 ####[facility] [address] [place], [address] Basophils/100 WBC (Bld) 0.2 % Normal 0-[address] [facility] Comment on above: Performed By: #### L 100.0100 ####[facility] [address] [place], [address] Eosinophils/100 WBC (Bld) 0.0 % Normal 0-5 [facility] Comment on above: Performed By: #### L 100.0100 ####[facility] [address] [place], [address] Erythrocyte distribution width (RBC) [Ratio] 17.1 % High 11.6-14.6 [facility] Comment on above: Performed By: #### L 100.0100 ####[facility] [address] [place], [address] Hematocrit (Bld) [Volume fraction] 25.6 % Low 40-54 [facility] Comment on above: Performed By: #### L 100.0100 ####[facility] [address] [place], [address] Hemoglobin (Bld) [Mass/Vol] 8.0 g/dL Low 13.0-16.5 [facility] Comment on above: Performed By: #### L 100.0100 ####[facility] [address] [place], [address] IG% 1.400 High 0.0-0.9 [facility] Comment on above: Result Comment: IG% - Immature Granulocytes (promyelocytes, myelocytes andmetamyelocytes) > 1% indicates that a LEFT SHIFT is Present. Performed By: #### L 100.0100 ####[facility] [address] [place], [address] Lymphocytes/100 WBC (Bld) 3.1 % Low 19-41 [facility] Comment on above: Performed By: #### L 100.0100 ####[facility] [address] [place], [address] MCH (RBC) [Entitic mass] 27.0 pg Normal 27.0-32.0 [facility] Comment on above: Performed By: #### L 100.0100 ####[facility] [address] [place], [address] MCHC (RBC) [Mass/Vol] 31.3 g/dL Low 32-36 [facility] Comment on above: Performed By: #### L 100.0100 ####[facility] [address] [place], [address] MCV (RBC) [Entitic vol] 86.5 fL Normal 80-[address] [facility] Comment on above: Performed By: #### L 100.0100 ####[facility] [address] [place], [address] Monocytes/100 WBC (Bld) 2.5 % Normal 0-[address] [facility] Comment on above: Performed By: #### L 100.0100 ####[facility] [address] [place], [address] Neutrophils/100 WBC (Bld) 92.8 % High 47-70 [facility] Comment on above: Performed By: #### L 100.0100 ####[facility] [address] [place], [address] Nucleated RBC (Bld) [#/Vol] 0 10*3/uL Normal 0-5 [facility] Comment on above: Performed By: #### L 100.0100 ####[facility] [address] [place], [address] Platelet mean volume (Bld) [Entitic vol] 10.4 fL Normal 6.2-12.0 [facility] Comment on above: Performed By: #### L 100.0100 ####[facility] [address] [place], [address] Platelets (Bld) [#/Vol] 189 10*3/uL Normal 150-450 [facility] Comment on above: Performed By: #### L 100.0100 ####[facility] [address] [place], [address] RBC (Bld) [#/Vol] 2.96 10*6/uL Low 4.6-6.2 [facility] Comment on above: Performed By: #### L 100.0100 ####[facility] [address] [place], [address] RDW SD 53.1 fl High 35.1-43.9 [facility] Comment on above: Performed By: #### L 100.0100 ####[facility] [address] [place], [address] WBC (Bld) [#/Vol] 6.4 10*3/uL Normal 4.4-11.0 [facility] Comment on above: Performed By: #### L 100.0100 ####[facility] [address] [place], [address] Electrocardiogram reportOrde red By: Issa Looney on 04-07-2025 EKG study [facility] Work Phone: Phosphoruson 04-07-2025 Phosphate [Mass/Vol] 4.6 mg/dL High 2.7-4.5 [facility] Comment on above: Performed By: #### L 500.2500, L501.2300 ####[facility] [id number] [place], [address] Bedside Glucoseon 04-06-2025 FINGERSTICK GLU 378 mg/dL High 74-106 [facility] Comment on above: Result Comment: KODY GEMENT OF PATIENT CARE PER NURSING PROTOCOL Performed By: #### L 501.080 ####[facility] [id number] [place], [address] FINGERSTICK GLU 168 mg/dL High 74-106 [facility] Comment on above: Result Comment: KODY GEMENT OF PATIENT CARE PER NURSING PROTOCOL Performed By: #### L 501.080 ####[facility] [address] [place], [address] FINGERSTICK GLU 140 mg/dL High 74-106 [facility] Comment on above: Result Comment: KODY GEMENT OF PATIENT CARE PER NURSING PROTOCOL Performed By: #### L 501.080 ####[facility] [address] [place], [address] FINGERSTICK GLU 116 mg/dL High 74-106 [facility] Comment on above: Result Comment: KODY GEMENT OF PATIENT CARE PER NURSING PROTOCOL Performed By: #### L 501.080 ####[facility] [address] [place], [address] FINGERSTICK GLU 112 mg/dL High 74-106 [facility] Comment on above: Result Comment: KODY GEMENT OF PATIENT CARE PER NURSING PROTOCOL Performed By: #### L 501.080 ####[facility] [address] [place], [address] Bilirubin, totalOrdered By: Nicola Madison on 04-06-2025 Bilirubin [Mass/Vol] 0.40 mg/dL 0.00-1.30 [facility] CBC W/Diff, Automatedon 03-20 Absolute Lymph 0.50 X10 3/uL Low 0.83-4.51 [facility] Comment on above: Performed By: #### L 100.0100 ####[facility] [address] [place], [address] Absolute Neut 6.4 X10 3/uL Normal 2.0-7.7 [facility] Comment on above: Performed By: #### L 100.0100 ####[facility] [address] [place], [address] Basophils/100 WBC (Bld) 0.5 % Normal 0-[address] [facility] Comment on above: Performed By: #### L 100.0100 ####[facility] [address] [place], [address] Eosinophils/100 WBC (Bld) 0.5 % Normal 0-5 [facility] Comment on above: Performed By: #### L 100.0100 ####[facility] [address] [place], [address] Erythrocyte distribution width (RBC) [Ratio] 16.8 % High 11.6-14.6 [facility] Comment on above: Performed By: #### L 100.0100 ####[facility] [address] [place], [address] Hematocrit (Bld) [Volume fraction] 26.3 % Low 40-54 [facility] Comment on above: Performed By: #### L 100.0100 ####[facility] [address] [place], [address] Hemoglobin (Bld) [Mass/Vol] 7.9 g/dL Low 13.0-16.5 [facility] Comment on above: Performed By: #### L 100.0100 ####[facility] [address] [place], [address] IG% 0.600 Normal 0.0-0.9 [facility] Comment on above: Result Comment: IG% - Immature Granulocytes (promyelocytes, myelocytes andmetamyelocytes) > 1% indicates that a LEFT SHIFT is Present. Performed By: #### L 100.0100 ####[facility] [address] [place], [address] Lymphocytes/100 WBC (Bld) 6.4 % Low 19-41 [facility] Comment on above: Performed By: #### L 100.0100 ####[facility] [address] [place], [address] MCH (RBC) [Entitic mass] 26.9 pg Low 27.0-32.0 [facility] Comment on above: Performed By: #### L 100.0100 ####[facility] [address] [place], [address] MCHC (RBC) [Mass/Vol] 30.0 g/dL Low 32-36 [facility] Comment on above: Performed By: #### L 100.0100 ####[facility] [address] [place], [address] MCV (RBC) [Entitic vol] 89.5 fL Normal 80-[address] [facility] Comment on above: Performed By: #### L 100.0100 ####[facility] [address] [place], [address] Monocytes/100 WBC (Bld) 10.1 % High 0-[address] [facility] Comment on above: Performed By: #### L 100.0100 ####[facility] [address] [place], [address] Neutrophils/100 WBC (Bld) 81.9 % High 47-70 [facility] Comment on above: Performed By: #### L 100.0100 ####[facility] [address] [place], [address] Nucleated RBC (Bld) [#/Vol] 0 10*3/uL Normal 0-5 [facility] Comment on above: Performed By: #### L 100.0100 ####[facility] [address] [place], [address] Platelet mean volume (Bld) [Entitic vol] 10.4 fL Normal 6.2-12.0 [facility] Comment on above: Performed By: #### L 100.0100 ####[facility] [address] [place], [address] Platelets (Bld) [#/Vol] 178 10*3/uL Normal 150-450 [facility] Comment on above: Performed By: #### L 100.0100 ####[facility] [address] [place], [address] RBC (Bld) [#/Vol] 2.94 10*6/uL Low 4.6-6.2 [facility] Comment on above: Performed By: #### L 100.0100 ####[facility] [address] [place], [address] RDW SD 54.7 fl High 35.1-43.9 [facility] Comment on above: Performed By: #### L 100.0100 ####[facility] [address] [place], [address] WBC (Bld) [#/Vol] 7.8 10*3/uL Normal 4.4-11.0 [facility] Comment on above: Performed By: #### L 100.0100 ####[facility] [address] [place], [address] Chest 1 View (Portable)on Chest 1 View (Portable) Normal [facility] Comprehensive Metabolic Prof ilon 04-06-2025 Albumin [Mass/Vol] 3.3 g/dL Low 3.4-4.8 [facility] Comment on above: Performed By: #### L 501.2300, L503.7505, L500.4050 ####[facility] [address] [place], [address] Albumin/Globulin [Mass ratio] 0.9 {ratio} Normal 0.9-2.4 [facility] Comment on above: Performed By: #### L 501.2300, L503.7505, L500.4050 ####[facility] [address] [place], [address] ALK PHOS 70 U/L Normal 40-129 [facility] Comment on above: Performed By: #### L 501.2300, L503.7505, L500.4050 ####[facility] [address] [place], [address] ALT [Catalytic activity/Vol] 13 U/L Normal <=46 [facility] Comment on above: Performed By: #### L 501.2300, L503.7505, L500.4050 ####[facility] [address] [place], [address] AST [Catalytic activity/Vol] 19 U/L Normal <=37 [facility] Comment on above: Performed By: #### L 501.2300, L503.7505, L500.4050 ####[facility] [address] [place], [address] Bilirubin [Mass/Vol] 0.40 mg/dL Normal 0.00-1.30 [facility] Comment on above: Performed By: #### L 501.2300, L503.7505, L500.4050 ####[facility] [address] [place], [address] BUN/CRE 22.8 RATIO High 10-20 [facility] Comment on above: Performed By: #### L 501.2300, L503.7505, L500.4050 ####[facility] [address] [place], [address] Calcium [Mass/Vol] 8.8 mg/dL Normal 7.6-11.0 [facility] Comment on above: Performed By: #### L 501.2300, L503.7505, L500.4050 ####[facility] [address] [place], [address] Chloride [Moles/Vol] 100 mmol/L Normal 98-108 [facility] Comment on above: Performed By: #### L 501.2300, L503.7505, L500.4050 ####[facility] [address] [place], [address] CO2 [Moles/Vol] 27.9 mmol/L Normal 21.0-32.0 [facility] Comment on above: Performed By: #### L 501.2300, L503.7505, L500.4050 ####[facility] [address] [place], [address] Creatinine [Mass/Vol] 2.52 mg/dL High 0.70-1.20 [facility] Comment on above: Performed By: #### L 501.2300, L503.7505, L500.4050 ####[facility] [address] [place], [address] ECRCL 22.79 ml/min Low 50-250 [facility] Comment on above: Performed By: #### L 501.2300, L503.7505, L500.4050 ####[facility] [address] [place], [address] GAP 10 Normal 5-15 [facility] Comment on above: Performed By: #### L 501.2300, L503.7505, L500.4050 ####[facility] [address] [place], [address] GFR/1.73 sq M.predicted among non-blacks MDRD (S/P/Bld) [Vol rate/Area] 25 mL/min/{1.73_m2} Low >60 [facility] Comment on above: Result Comment: mL/m in/1.73m2 CKD-EPI Creatinine Equation (2020) Performed By: #### L 501.2300, L503.7505, L500.4050 ####[facility] [address] [place], [address] Globulin (S) [Mass/Vol] 3.5 g/dL Normal 2.2-4.2 [facility] Comment on above: Performed By: #### L 501.2300, L503.7505, L500.4050 ####[facility] [address] [place], [address] Glucose [Mass/Vol] 102 mg/dL High 70-99 [facility] Comment on above: Performed By: #### L 501.2300, L503.7505, L500.4050 ####[facility] [address] [place], [address] Potassium [Moles/Vol] 4.7 mmol/L Normal 3.3-5.1 [facility] Comment on above: Performed By: #### L 501.2300, L503.7505, L500.4050 ####[facility] [address] [place], [address] Sodium [Moles/Vol] 138 mmol/L Normal 133-145 [facility] Comment on above: Performed By: #### L 501.2300, L503.7505, L500.4050 ####[facility] [address] [place], [address] T PROT 6.8 g/dL Normal 5.9-8.4 [facility] Comment on above: Performed By: #### L 501.2300, L503.7505, L500.4050 ####[facility] [address] [place], [address] Urea nitrogen [Mass/Vol] 58 mg/dL High 4-19 [facility] Comment on above: Performed By: #### L 501.2300, L503.7505, L500.4050 ####[facility] [address] [place], [address] Consultation - Nephrologyon 04-06-2025 Consultation - Nephrology Normal [facility] Kidney and Bladderon 025 Kidney and Bladder Normal [facility] Natriuretic peptide.B prohor girish N-Terminal [Mass/volume] in Serum or PlasmaOrdered By: Nicola Madison on 04-06-2025 Natriuretic peptide.B prohormone N-Terminal [Mass/Vol] 4038 pg/mL High <1800 [facility] No Panel InformationOrdered By: Nicola Madison on 04-06-2025 19 U/L <38 [facility] Phosphoruson 04-06-2025 Phosphate [Mass/Vol] 5.4 mg/dL High 2.7-4.5 [facility] Comment on above: Performed By: #### L 501.2300, L503.7505, L500.4050 ####[facility] [address] [place], [address] Pro- Brain NATRIURETIC PEPTI Adrienne 04-06-2025 Natriuretic peptide B (Bld) [Mass/Vol] 4038 pg/mL High <=1800 [facility] Comment on above: Result Comment: Hear t Failure Unlikely: < 300 pg/mLHeart Failure Likely< 50 Years: > 450 pg/mL50-75 Years: > 900 pg/mL>75 Years: > 1800 pg/mL Performed By: #### L 501.2300, L503.7505, L500.4050 ####[facility] [address] [place], [address] Protein+Creatinine Ratio,Uri neon 04-06-2025 PROT:CRE RATIO 1660 mg/g CRE High 0-200 [facility] Comment on above: Performed By: #### L 501.0900 ####[facility] [address] [place], [address] UR CREAT 32.10 mg/dL Low 39.00-259. 00 [facility] Comment on above: Performed By: #### L 501.0900 ####[facility] [address] [place], [address] RESPIRATORY PANEL MOLECULARo n 04-06-2025 RP PANEL Normal [facility] Comment on above: Performed By: #### M 100.638 ####[facility] [address] [place], [address] Random urine creatinine kingsley urement (mass/volume)Ordered By: Renae Sarabia on 04-06-2025 Creatinine Unsp time (U) [Mass/Vol] 32.10 mg/dL Low 39.00-259. 00 [facility] Respiratory pathogens detect ion panel by molecular detection methodOrdered By: Nicola Madison on 04-06-2025 Respiratory pathogens DNA and RNA panel BRYAN+probe (Resp) [facility] Serum globulin measurementOr dered By: Nicola Madison on 04-06-2025 Globulin (S) [Mass/Vol] 3.5 g/dL 2.2-4.[address] [facility] Serum or plasma alanine ortiz otransferase (ALT) measurementOrdered By: Nicola Madison on 04-06-2025 ALT [Catalytic activity/Vol] 13 U/L <47 [facility] Serum or plasma albumin kingsley urement (mass/volume)Ordered By: Nicola Madison on 04-06-2025 Albumin [Mass/Vol] 3.3 g/dL Low 3.4-4.8 [facility] Serum or plasma albumin/glob ulin mass ratioOrdered By: Nicola Madison on 04-06-2025 Albumin/Globulin [Mass ratio] 0.9 {ratio} 0.9-2.4 [facility] Serum or plasma alkaline roosevelt sphatase measurementOrdered By: Nicola Madison on 04-06-2025 ALP [Catalytic activity/Vol] 70 U/L 40-129 [facility] Total proteinOrdered By: Jacob Madison on 04-06-2025 Protein [Mass/Vol] 6.8 g/dL 5.9-8.4 [facility] Urine protein measurement (m ass/volume)Ordered By: Renae Sarabia on 04-06-2025 Protein (U) [Mass/Vol] 53.3 mg/dL High 0.0-12.0 [facility] Comment on above: Performed By: #### L 501.0900 ####[facility] [address] [place], [address] Urine protein/creatinine mas s ratioOrdered By: Renae Sarabia on 04-06-2025 Protein/Creatinine (U) [Mass ratio] 1660 mg/g CRE High 0-200 [facility] 12 Lead EKGon 04-05-2025 12 Lead EKG Normal [facility] Absolute lymphocyte countOrd ered By: Ld Hayes on 04-05-2025 Lymphocytes Auto (Unsp spec) [#/Vol] 0.64 10*3/uL Low 0.83-4.51 [facility] Anion gap in Serum or Plasma Ordered By: Ld Hayes on 04-05-2025 Anion gap [Moles/Vol] 11 mmol/L 5-15 [facility] Assessment of wrist artery p atency prior to arterial punctureOrdered By: Nicola Madison on 04-05-2025 Arterial patency Wrist artery --pre arterial puncture Positive [facility] Automated lymphocyte count a s percentage of total leukocytesOrdered By: Ld Hayes on 04-05-2025 Lymphocytes/100 WBC Auto (Unsp spec) 7.3 % Low 19-41 [facility] BUN/creatinine ratioOrdered By: Ld Hayes on 04-05-2025 Urea nitrogen/Creatinine [Mass ratio] 23.2 mg/mg High - [facility] Basic Metabolic Profile (BMP )on 04-05-2025 BUN/CRE 23.2 RATIO High - [facility] Comment on above: Performed By: #### L 100.0100, L500.2500 ####[facility] [address] [place], [address] Calcium [Mass/Vol] 8.8 mg/dL Normal 7.6-11.0 [facility] Comment on above: Performed By: #### L 100.0100, L500.2500 ####[facility] [address] [place], [address] Chloride [Moles/Vol] 97 mmol/L Low 98-108 [facility] Comment on above: Performed By: #### L 100.0100, L500.2500 ####[facility] [address] [place], [address] CO2 [Moles/Vol] 26.7 mmol/L Normal 21.0-32.0 [facility] Comment on above: Performed By: #### L 100.0100, L500.2500 ####[facility] [address] [place], [address] Creatinine [Mass/Vol] 2.57 mg/dL High 0.70-1.20 [facility] Comment on above: Performed By: #### L 100.0100, L500.2500 ####[facility] [address] [place], [address] ECRCL 22.62 ml/min Low 50-250 [facility] Comment on above: Performed By: #### L 100.0100, L500.2500 ####[facility] [address] [place], [address] GAP 11 Normal 5-15 [facility] Comment on above: Performed By: #### L 100.0100, L500.2500 ####[facility] [address] [place], [address] GFR/1.73 sq M.predicted among non-blacks MDRD (S/P/Bld) [Vol rate/Area] 25 mL/min/{1.73_m2} Low >60 [facility] Comment on above: Result Comment: mL/m in/1.73m2 CKD-EPI Creatinine Equation (2020) Performed By: #### L 100.0100, L500.2500 ####[facility] [address] [place], [address] Glucose [Mass/Vol] 164 mg/dL High 70-99 [facility] Comment on above: Performed By: #### L 100.0100, L500.2500 ####[facility] [address] [place], [address] Potassium [Moles/Vol] 5.8 mmol/L High 3.3-5.1 [facility] Comment on above: Result Comment: Hemo lysis present, Results??could be affected.?? Performed By: #### L 100.0100, L500.2500 ####[facility] [address] [place], [address] Sodium [Moles/Vol] 134 mmol/L Normal 133-145 [facility] Comment on above: Performed By: #### L 100.0100, L500.2500 ####[facility] [address] [place], [address] Urea nitrogen [Mass/Vol] 60 mg/dL High 4-19 [facility] Comment on above: Performed By: #### L 100.0100, L500.2500 ####[facility] [address] [place], [address] Basophil percentageOrdered B y: Ld Hayes on 04-05-2025 Basophils/100 WBC (Bld) 0.6 % 0-[address] [facility] Bedside Glucoseon 04-05-2025 FINGERSTICK GLU 76 mg/dL Normal 74-106 [facility] Comment on above: Result Comment: KODY GEMENT OF PATIENT CARE PER NURSING PROTOCOL Performed By: #### L 501.080 ####[facility] [address] [place], [address] FINGERSTICK GLU 147 mg/dL High 74-106 [facility] Comment on above: Result Comment: KODY GEMENT OF PATIENT CARE PER NURSING PROTOCOL Performed By: #### L 501.080 ####[facility] [address] [place], [address] Bilirubin Test strip Ql (U)O rdered By: Nicola Madison on 04-05-2025 Bilirubin Ql (U) Negative Negative [facility] Blood Gases by CPSon 025 EMILIA TEST Positive Normal [facility] Comment on above: Performed By: #### L 9000.0800 ####[facility] [address] [place], [address] Base excess Calc (Bld) [Moles/Vol] 7 mmol/L High -2 to +2 [facility] Comment on above: Performed By: #### L 9000.0800 ####[facility] [address] [place], [address] Blood Gas Type ART Normal [facility] Comment on above: Performed By: #### L 9000.0800 ####[facility] [address] [place], [address] CO2 [Moles/Vol] 34 mmol/L Normal [facility] Comment on above: Performed By: #### L 9000.0800 ####[facility] [address] [place], [address] FI02 6.0 Normal [facility] Comment on above: Performed By: #### L 9000.0800 ####[place] [facility] [address] [place], [address] HCO3 (Bld) [Moles/Vol] 32.4 mmol/L High 22-[address] [facility] Comment on above: Performed By: #### L 8999.08 ####[facility] [address] [place], [address] Mode Not entered Normal [facility] Comment on above: Performed By: #### L 8999.08 ####[facility] [address] [place], [address] O2 Delivery Dev Cannula Normal [facility] Comment on above: Performed By: #### L 8999.08 ####[facility] [address] [place], [address] pCO2 57.1 mmHg High 35-45 [facility] Comment on above: Performed By: #### L 8999.08 ####[facility] [address] [place], [address] pH (Bld) 7.36 [pH] Normal 7.35-7.45 [facility] Comment on above: Performed By: #### L 8999.08 ####[facility] [address] [place], [address] PO2 71 mmHG Low 75-100 [facility] Comment on above: Performed By: #### L 0.08 ####[facility] [address] [place], [address] SITE R Radial Normal [facility] Comment on above: Performed By: #### L 8999.08 ####[facility] [address] [place], [address] SO2 93 Low 95-99 [facility] Comment on above: Performed By: #### L 0.0800 ####[facility] [address] [place], [address] Blood base excess determinat ionOrdered By: Nicola Madison on 04-05-2025 Base excess Calc (BldV) [Moles/Vol] 7 mmol/L High -2-2 [facility] Blood bicarbonate measuremen tOrdered By: Nicola Madison on 04-05-2025 HCO3 (Bld) [Moles/Vol] 32.4 mmol/L High 22-[address] [facility] CBC W/Diff, Automatedon 03-20 Absolute Lymph 0.64 X10 3/uL Low 0.83-4.51 [facility] Comment on above: Performed By: #### L 100.0100, L500.2500 ####[facility] [address] [place], [address] Absolute Neut 7.0 X10 3/uL Normal 2.0-7.7 [facility] Comment on above: Performed By: #### L 100.0100, L500.2500 ####[facility] [address] [place], [address] Basophils/100 WBC (Bld) 0.6 % Normal 0-[address] [facility] Comment on above: Performed By: #### L 100.0100, L500.2500 ####[facility] [address] [place], [address] Eosinophils/100 WBC (Bld) 1.0 % Normal 0-5 [facility] Comment on above: Performed By: #### L 100.0100, L500.2500 ####[facility] [address] [place], [address] Erythrocyte distribution width (RBC) [Ratio] 17.1 % High 11.6-14.6 [facility] Comment on above: Performed By: #### L 100.0100, L500.2500 ####[facility] [address] [place], [address] Hematocrit (Bld) [Volume fraction] 29.0 % Low 40-54 [facility] Comment on above: Performed By: #### L 100.0100, L500.2500 ####[facility] [address] [place], [address] Hemoglobin (Bld) [Mass/Vol] 8.9 g/dL Low 13.0-16.5 [facility] Comment on above: Performed By: #### L 100.0100, L500.2500 ####[facility] [address] [place], [address] IG% 0.700 Normal 0.0-0.9 [facility] Comment on above: Result Comment: IG% - Immature Granulocytes (promyelocytes, myelocytes andmetamyelocytes) > 1% indicates that a LEFT SHIFT is Present. Performed By: #### L 100.0100, L500.2500 ####[facility] [address] [place], [address] Lymphocytes/100 WBC (Bld) 7.3 % Low 19-41 [facility] Comment on above: Performed By: #### L 100.0100, L500.2500 ####[facility] [address] [place], [address] MCH (RBC) [Entitic mass] 27.2 pg Normal 27.0-32.0 [facility] Comment on above: Performed By: #### L 100.0100, L500.2500 ####[facility] [address] [place], [address] MCHC (RBC) [Mass/Vol] 30.7 g/dL Low 32-36 [facility] Comment on above: Performed By: #### L 100.0100, L500.2500 ####[facility] [address] [place], [address] MCV (RBC) [Entitic vol] 88.7 fL Normal 80-[address] [facility] Comment on above: Performed By: #### L 100.0100, L500.2500 ####[facility] [address] [place], [address] Monocytes/100 WBC (Bld) 10.7 % High 0-[address] [facility] Comment on above: Performed By: #### L 100.0100, L500.2500 ####[facility] [address] [place], [address] Neutrophils/100 WBC (Bld) 79.7 % High 47-70 [facility] Comment on above: Performed By: #### L 100.0100, L500.2500 ####[facility] [address] [place], [address] Nucleated RBC (Bld) [#/Vol] 0.2 10*3/uL Normal 0-5 [facility] Comment on above: Performed By: #### L 100.0100, L500.2500 ####[facility] [address] [place], [address] Platelet mean volume (Bld) [Entitic vol] 11.1 fL Normal 6.2-12.0 [facility] Comment on above: Performed By: #### L 100.0100, L500.2500 ####[facility] [address] [place], [address] Platelets (Bld) [#/Vol] 226 10*3/uL Normal 150-450 [facility] Comment on above: Performed By: #### L 100.0100, L500.2500 ####[facility] [address] [place], [address] RBC (Bld) [#/Vol] 3.27 10*6/uL Low 4.6-6.2 [facility] Comment on above: Performed By: #### L 100.0100, L500.2500 ####[facility] [address] [place], [address] RDW SD 55.5 fl High 35.1-43.9 [facility] Comment on above: Performed By: #### L 100.0100, L500.2500 ####[facility] [address] [place], [address] WBC (Bld) [#/Vol] 8.7 10*3/uL Normal 4.4-11.0 [facility] Comment on above: Performed By: #### L 100.0100, L500.2500 ####[facility] [address] [place], [address] Carbon dioxide, total [Moles /volume] in Central venous bloodOrdered By: Ld Hayes on 04-05-2025 CO2 [Moles/Vol] 26.7 mmol/L 21.0-32.0 [facility] Chest PA and Lateralon 04-05 Chest PA and Lateral Normal [facility] Chloride assayOrdered By: Sky Hayes on 04-05-2025 Chloride [Moles/Vol] 97 mmol/L Low 98-108 [facility] Emergency Department Summary on 04-05-2025 Emergency Department Summary Normal [facility] Eosinophil percentageOrdered By: Ld Hayes on 04-05-2025 Eosinophils/100 WBC (Bld) 1.0 % 0-5 [facility] Erythrocyte distribution wid th ratioOrdered By: Ld Hayes on 04-05-2025 Erythrocyte distribution width (RBC) [Ratio] 17.1 % High 11.6-14.6 [facility] Erythrocyte distribution wid th standard deviationOrdered By: Ld Hayes on 04-05-2025 Erythrocyte distribution width (RBC) [Ratio] 55.5 fl High 35.1-43.9 [facility] Glomerular filtration rate ( GFR) estimation/1.73 sq m using serum, plasma, or whole bOrdered By: Ld Hayes on 04-05-2025 GFR/1.73 sq M.predicted among non-blacks MDRD (S/P/Bld) [Vol rate/Area] 25 mL/min/{1.73_m2} Low >60 [facility]dered By: Ld Abigail on 04-05-2025 Glucose [Mass/Vol] 147 mg/dL High 74-106 [facility] H AND P Exam - Hospitaliston 04-05-2025 H&P Exam - Hospitalist Normal [facility] Hematocrit Auto (Bld) [Volum e fraction]Ordered By: Ld Hayes on 04-05-2025 Hematocrit (Bld) [Volume fraction] 29.0 % Low 40-54 [facility] Hemoglobin measurementOrdere d By: Ld Abigail on 04-05-2025 Hemoglobin (Bld) [Mass/Vol] 8.9 g/dL Low 13.0-16.5 [facility] Immature granulocytes/100 WB C Auto (Bld)Ordered By: Ld Hayes on 04-05-2025 Immature granulocytes/100 WBC (Bld) 0.700 % 0.0-0.9 [facility] Influenza virus A and B and SARS-CoV-2 (COVID-19) and Respiratory syncytial virus RNAOrdered By: Ld Hayes on 04-05-2025 SARS-CoV-2 (COVID-19) RNA BRYAN+probe Ql (Unsp spec) [facility] Ketones Test strip Ql (U)Ord ered By: Nicola Madison on 04-05-2025 Ketones Ql (U) Negative Negative [facility] L501.4021on 04-05-2025 Trop T High Sen 64 ng/L Invalid Interpretation Code <=22 [facility] Comment on above: Result Comment: Crit ical Result(s) [facility]: 1805 by:RIVERA??Results read back by same. Performed By: #### L 501.4021 ####[facility] [address] [place], [address] M100.678on 04-05-2025 M100.678 SARS-CoV-2 (COVID 19 ) Negative INFLUENZA A Negative INFLUENZA B Negative RSV PCR Negative Normal [facility] Comment on above: Performed By: #### M 100.678 ####[facility] [address] [place], [address] MCV (mean corpuscular volume ) determinationOrdered By: Ld Hayes on 04-05-2025 MCV (RBC) [Entitic vol] 88.7 fL 80-[address] [facility] Magnesiumon 04-05-2025 Magnesium [Mass/Vol] 2.5 mg/dL High 1.5-2.2 [facility] Comment on above: Performed By: #### L 501.5200, L501.9520 ####[facility] [address] [place], [address] Magnesium measurement (mass/ volume)Ordered By: Nicola Madison on 04-05-2025 Magnesium (Unsp spec) [Mass/Vol] 2.5 mg/dL High 1.5-2.2 [facility] Mean corpuscular hemoglobin (MCH) determinationOrdered By: Ld Hayes on 04-05-2025 MCH (RBC) [Entitic mass] 27.2 pg 27.0-32.0 [facility] Measurement, pHOrdered By: Sarah Madison on 04-05-2025 pH (Unsp spec) 7.36 [pH] 7.35-7.45 [facility] Monocyte percentageOrdered B y: Ld Hayes on 04-05-2025 Monocytes/100 WBC (Bld) 10.7 % High 0-[address] [facility] Mucus LM Ql (Urine sed)Order ed By: Nicola Madison on 04-05-2025 Mucus Ql (Urine sed) 0 SEEN /hpf [facility] Natriuretic peptide.B prohor girish N-Terminal [Mass/volume] in Serum or PlasmaOrdered By: Ld Hayes on 04-05-2025 Natriuretic peptide.B prohormone N-Terminal [Mass/Vol] 4003 pg/mL High <1800 [facility] Neutrophil percentageOrdered By: Ld aHyes on 04-05-2025 Neutrophils/100 WBC (Bld) 79.7 % High 47-70 [facility] Nitrite Test strip Ql (U)Ord ered By: Nicola Madison on 04-05-2025 Nitrite Ql (U) Negative Negative [facility] No Panel InformationOrdered By: Nicola Madison on 04-05-2025 ART [facility] R Radial [facility] Not entered [facility] Cannula [facility] Platelet countOrdered By: Sky Hayes on 04-05-2025 Platelets (Bld) [#/Vol] 226 10*3/uL 150-450 [facility] Potassium measurement (mass/ volume)Ordered By: Ld Hayes on 04-05-2025 Potassium (Unsp spec) [Mass/Vol] 5.8 mmol/L High 3.3-5.1 [facility] Pro- Brain NATRIURETIC PEPTI Adrienne 04-05-2025 Natriuretic peptide B (Bld) [Mass/Vol] 4003 pg/mL High <=1800 [facility] Comment on above: Result Comment: Hear t Failure Unlikely: < 300 pg/mLHeart Failure Likely< 50 Years: > 450 pg/mL50-75 Years: > 900 pg/mL>75 Years: > 1800 pg/mL Performed By: #### L 503.7505 ####[facility] [address] [place], [place], [address] Protein Test strip Ql (U)Ord ered By: Nicola Madison on 04-05-2025 Protein Ql (U) 100 mg/dl High Negative [facility] RBC Auto (Bld) [#/Vol]Ordere d By: Ld Hayes on 04-05-2025 RBC (Bld) [#/Vol] 3.27 10*6/uL Low 4.6-6.2 [facility] Serum creatinine measurement (mass/volume)Ordered By: Ld Hayes on 04-05-2025 Creatinine [Mass/Vol] 2.57 mg/dL High 0.70-1.20 [facility] Serum glucose measurement (m ass/volume)Ordered By: Ld Hayes on 04-05-2025 Glucose [Mass/Vol] 164 mg/dL High 70-99 [facility] Serum or plasma calcium kings[place] urement (mass/volume)Ordered By: Ld Hayes on 04-05-2025 Calcium [Mass/Vol] 8.8 mg/dL 7.6-11.0 [facility] Serum or plasma urea nitroge n measurement (mass/volume)Ordered By: Ld Hayes on 04-05-2025 Urea nitrogen [Mass/Vol] 60 mg/dL High 4-19 [facility] Sodium levelOrdered By: Ld Hayes on 04-05-2025 Sodium [Moles/Vol] 134 mmol/L 133-145 [facility] Squamous epithelial cells de tection in urine sediment by light microscopyOrdered By: Nicola Madison on 04-05-2025 Epithelial cells.squamous LM Ql (Urine sed) 0-5 SEEN /hpf 0-5 [facility] TSH DL <= 0.005 mIU/L QnOrde red By: Nicola Madison on 04-05-2025 TSH Qn 3.830 uIU/mL 0.300-4.20 0 [facility] Thyroid Stim Hormone (TSH)on 04-05-2025 TSH 3.830 uIU/mL Normal 0.300-4.20 0 [facility] Comment on above: Performed By: #### L 501.5200, L501.9520 ####[facility] [address] [facility] [id number] Total carbon dioxide measure mentOrdered By: Nicola Madison on 04-05-2025 CO2 [Moles/Vol] 34 mmol/L [facility] Troponin T HS 2 HRon 025 Trop T High Sen 62 ng/L Invalid Interpretation Code <=22 [facility] Comment on above: Result Comment: Crit ical Result(s) Called [facility] at:2002 by:RIVERA??Results read back by same. Performed By: #### L 499.0042 ####[facility] [address] [place], [place], [id number] Troponin T HS 4 HRon 025 Trop T High Sen 60 ng/L Invalid Interpretation Code <=22 [facility] Comment on above: Result Comment: Crit ical Result(s) Called [facility]IGUEL[facility]CHO[facility] at: 2137 by:RIVERA??Results read back by same. Performed By: #### L 499.0043 ####[facility] [address] [place], [place], [id number] Troponin T.cardiac [Mass/vol ume] in Serum or Plasma by High sensitivity methodOrdered By: Ld Hayes on 04-05-2025 Troponin T.cardiac High sensitivity method [Mass/Vol] 60 ng/L High <22 [facility] Troponin T.cardiac High sensitivity method [Mass/Vol] 62 ng/L High <22 [facility] Troponin T.cardiac High sensitivity method [Mass/Vol] 64 ng/L High <22 [facility] Urinalysis, Completeon 04-05 BACTERIA 2+ /hpf Normal None Seen [facility] Comment on above: Order Comment: CLEAN CATCH Performed By: #### L 400.0001 ####[facility] [address] [place], [address] EPI,SQUAMOUS 0-5 SEEN Normal 0-5 [facility] Comment on above: Order Comment: CLEAN CATCH Performed By: #### L 400.0001 ####[facility] [address] [facility] [address] RBC 0-5 SEEN Normal 0-5 [facility] Comment on above: Order Comment: CLEAN CATCH Performed By: #### L 400.0001 ####[facility] [address] [facility] [address] WBC 5-10 SEEN Normal 0-5 [facility] Comment on above: Order Comment: CLEAN CATCH Performed By: #### L 400.0001 ####[facility] [address] [facility] [address] Mucus Ql (Urine sed) 0 SEEN Normal [facility] Comment on above: Order Comment: CLEAN CATCH Performed By: #### L 400.0001 ####[facility] [address] [facility] [address] Urine clarityOrdered By: Jacob Madison on 04-05-2025 Clarity (U) Clear Clear [facility] Urine color determinationOrd ered By: Nicola Madison on 04-05-2025 Color (U) Yellow Yellow [facility] Urine glucose detectionOrder ed By: Nicola Madison on 04-05-2025 Glucose Ql (U) Normal mg/dl Normal [facility] Urine leukocyte esterase det ection by dipstickOrdered By: Nicola Madison on 04-05-2025 Leukocyte esterase Test strip Ql (U) 500 /ul High Negative [facility] Urine pHOrdered By: Nicola stack on 04-05-2025 pH (U) 5.0 [pH] 5.0 - 8.0 [facility] Urine sediment bacteria coun t by microscopy (number/high power field)Ordered By: Nicola Madison on 04-05-2025 Bacteria LM.HPF (Urine sed) [#/Area] 2 /[HPF] None Seen [facility] Urine specific gravity measu rementOrdered By: Nicola Madison on 04-05-2025 Specific gravity (U) [Rel density] 1.015 1.002-1.03 0 [facility] Urine urobilinogen measureme ntOrdered By: Nicola Madison on 04-05-2025 Urobilinogen Ql (U) Normal mg/dl Normal [facility] White blood cell (WBC) count Ordered By: Ld Hayes on 04-05-2025 WBC (Bld) [#/Vol] 8.7 10*3/uL 4.4-11.0 [facility] White blood cell countOrdere d By: Nicola Madison on 04-05-2025 White blood cell count 5-10 SEEN /hpf 0-5 [facility] Absolute lymphocyte countOrd ered By: Leslie Arriaga on 04-02-2025 Lymphocytes Auto (Unsp spec) [#/Vol] 0.87 10*3/uL 0.83-4.51 [facility] Absolute neutrophil countOrd ered By: Leslie Arriaga on 04-02-2025 Neutrophils (Bld) [#/Vol] 6.9 10*3/uL 2.0-7.7 [facility] Anion gap in Serum or Plasma Ordered By: Leslie Arriaga on 04-02-2025 Anion gap [Moles/Vol] 10 mmol/L 5-15 [facility] Automated lymphocyte count a s percentage of total leukocytesOrdered By: Leslie Arriaga on 04-02-2025 Lymphocytes/100 WBC Auto (Unsp spec) 10.0 % Low 19-41 [facility] BUN/creatinine ratioOrdered By: Leslie Arriaga on 04-02-2025 Urea nitrogen/Creatinine [Mass ratio] 16.4 mg/mg - [facility] Basic Metabolic Profile (BMP )on 04-02-2025 BUN/CRE 16.4 RATIO Normal - [facility] Comment on above: Order Comment: Comme nts: [facility] Health to [facility] Performed By: #### L 100.0100, L503.7505, L500.2500 ####[facility] [address] [place], [address] Calcium [Mass/Vol] 9.2 mg/dL Normal 7.6-11.0 [facility] Comment on above: Order Comment: Comme nts: Home Health to Draw TomorrowHome [facility] to Draw Tomorrow Performed By: #### L 100.0100, L503.7505, L500.2500 ####[facility] [address] [place], [address] Chloride [Moles/Vol] 99 mmol/L Normal 98-108 [facility] Comment on above: Order Comment: Comme nts: Home Health to Draw [facility] to Draw Tomorrow Performed By: #### L 100.0100, L503.7505, L500.2500 ####[facility] [address] [place], [address] CO2 [Moles/Vol] 27.8 mmol/L Normal 21.0-32.0 [facility] Comment on above: Order Comment: Comme nts: Home Health to Draw TomorrowHome [facility] to Draw Tomorrow Performed By: #### L 100.0100, L503.7505, L500.2500 ####[facility] [address] [place], [address] Creatinine [Mass/Vol] 2.13 mg/dL High 0.70-1.20 [facility] Comment on above: Order Comment: Comme nts: Home Health to Draw TomorrowHome [facility] to Draw Tomorrow Performed By: #### L 100.0100, L503.7505, L500.2500 ####[facility] [address] [place], [address] GAP 10 Normal 5-15 [facility] Comment on above: Order Comment: Comme nts: Home Health to Draw TomorrowHome [facility] to Draw Tomorrow Performed By: #### L 100.0100, L503.7505, L500.2500 ####[facility] [address] [place], [address] GFR/1.73 sq M.predicted among non-blacks MDRD (S/P/Bld) [Vol rate/Area] 31 mL/min/{1.73_m2} Low >60 [facility] Comment on above: Order Comment: Comme nts: Home Health to Draw [facility]Home [facility] to Draw Tomorrow Result Comment: mL/m in/1.73m2 CKD-EPI Creatinine Equation (2020) Performed By: #### L 100.0100, L503.7505, L500.2500 ####[facility] [address] [place], [address] Glucose [Mass/Vol] 185 mg/dL High 70-99 [facility] Comment on above: Order Comment: Comme nts: Home Health to Draw TomorrowHome [facility] to Draw Tomorrow Performed By: #### L 100.0100, L503.7505, L500.2500 ####[facility] [address] [place], [address] Potassium [Moles/Vol] 5.6 mmol/L High 3.3-5.1 [facility] Comment on above: Order Comment: Comme nts: Home Health to Draw TomorrowHome [facility] to Draw Tomorrow Performed By: #### L 100.0100, L503.7505, L500.2500 ####[facility] [address] [place], [address] Sodium [Moles/Vol] 137 mmol/L Normal 133-145 [facility] Comment on above: Order Comment: Comme nts: Home Health to Draw TomorrowHome Health to Draw Tomorrow Performed By: #### L 100.0100, L503.7505, L500.2500 ####[facility] [address] [place], [address] Urea nitrogen [Mass/Vol] 35 mg/dL High 4-19 [facility] Comment on above: Order Comment: Comme nts: Home Health to Draw TomorrowHome Health to Draw Tomorrow Performed By: #### L 100.0100, L503.7505, L500.2500 ####[facility] [address] [place], [address] Basophil percentageOrdered B y: Leslie Arriaga on 04-02-2025 Basophils/100 WBC (Bld) 0.3 % 0-[address] [facility] CBC W/Diff, Automatedon 03-20 Absolute Lymph 0.87 X10 3/uL Normal 0.83-4.51 [facility] Comment on above: Order Comment: Comme nts: Home Health to Draw Tomorrow Performed By: #### L 100.0100, L503.7505, L500.2500 ####[facility] [address] [place], [address] Absolute Neut 6.9 X10 3/uL Normal 2.0-7.7 [facility] Comment on above: Order Comment: Comme nts: Home Health to Draw Tomorrow Performed By: #### L 100.0100, L503.7505, L500.2500 ####[facility] [address] [place], [address] Basophils/100 WBC (Bld) 0.3 % Normal 0-[address] [facility] Comment on above: Order Comment: Comme nts: Home Health to Draw Tomorrow Performed By: #### L 100.0100, L503.7505, L500.2500 ####[facility] [address] [place], [address] Eosinophils/100 WBC (Bld) 0.8 % Normal 0-5 [facility] Comment on above: Order Comment: Comme nts: Home Health to Draw Tomorrow Performed By: #### L 100.0100, L503.7505, L500.2500 ####[facility] [address] [place], [address] Erythrocyte distribution width (RBC) [Ratio] 17.1 % High 11.6-14.6 [facility] Comment on above: Order Comment: Comme nts: Home Health to Draw Tomorrow Performed By: #### L 100.0100, L503.7505, L500.2500 ####[facility] [address] [place], [address] Hematocrit (Bld) [Volume fraction] 30.6 % Low 40-54 [facility] Comment on above: Order Comment: Comme nts: Home Health to Draw Tomorrow Performed By: #### L 100.0100, L503.7505, L500.2500 ####[facility] [address] [place], [address] Hemoglobin (Bld) [Mass/Vol] 9.2 g/dL Low 13.0-16.5 [facility] Comment on above: Order Comment: Comme nts: Home Health to Draw Tomorrow Performed By: #### L 100.0100, L503.7505, L500.2500 ####[facility] [address] [place], [address] IG% 0.600 Normal 0.0-0.9 [facility] Comment on above: Order Comment: Comme nts: Home Health to Draw Tomorrow Result Comment: IG% - Immature Granulocytes (promyelocytes, myelocytes andmetamyelocytes) > 1% indicates that a LEFT SHIFT is Present. Performed By: #### L 100.0100, L503.7505, L500.2500 ####[facility] [address] [place], [address] Lymphocytes/100 WBC (Bld) 10.0 % Low 19-41 [facility] Comment on above: Order Comment: Comme nts: Home Health to Draw Tomorrow Performed By: #### L 100.0100, L503.7505, L500.2500 ####[facility] [address] [place], [address] MCH (RBC) [Entitic mass] 26.8 pg Low 27.0-32.0 [facility] Comment on above: Order Comment: Comme nts: Home Health to Draw Tomorrow Performed By: #### L 100.0100, L503.7505, L500.2500 ####[facility] [address] [place], [address] MCHC (RBC) [Mass/Vol] 30.1 g/dL Low 32-36 [facility] Comment on above: Order Comment: Comme nts: Home Health to Draw Tomorrow Performed By: #### L 100.0100, L503.7505, L500.2500 ####[facility] [address] [place], [address] MCV (RBC) [Entitic vol] 89.2 fL Normal 80-[address] [facility] Comment on above: Order Comment: Comme nts: Home Health to Draw Tomorrow Performed By: #### L 100.0100, L503.7505, L500.2500 ####[facility] [address] [place], [address] Monocytes/100 WBC (Bld) 8.9 % Normal 0-[address] [facility] Comment on above: Order Comment: Comme nts: Home Health to Draw Tomorrow Performed By: #### L 100.0100, L503.7505, L500.2500 ####[facility] [address] [place], [address] Neutrophils/100 WBC (Bld) 79.4 % High 47-70 [facility] Comment on above: Order Comment: Comme nts: Home Health to Draw Tomorrow Performed By: #### L 100.0100, L503.7505, L500.2500 ####[facility] [address] [place], [address] Nucleated RBC (Bld) [#/Vol] 0 10*3/uL Normal 0-5 [facility] Comment on above: Order Comment: Comme nts: Home Health to Draw Tomorrow Performed By: #### L 100.0100, L503.7505, L500.2500 ####[facility] [address] [place], [address] Platelet mean volume (Bld) [Entitic vol] 10.6 fL Normal 6.2-12.0 [facility] Comment on above: Order Comment: Comme nts: Home Health to Draw Tomorrow Performed By: #### L 100.0100, L503.7505, L500.2500 ####[facility] [address] [place], [address] Platelets (Bld) [#/Vol] 210 10*3/uL Normal 150-450 [facility] Comment on above: Order Comment: Comme nts: Home Health to Draw Tomorrow Performed By: #### L 100.0100, L503.7505, L500.2500 ####[facility] [address] [place], [address] RBC (Bld) [#/Vol] 3.43 10*6/uL Low 4.6-6.2 [facility] Comment on above: Order Comment: Comme nts: Home Health to Draw Tomorrow Performed By: #### L 100.0100, L503.7505, L500.2500 ####[facility] [address] [place], [address] RDW SD 55.3 fl High 35.1-43.9 [facility] Comment on above: Order Comment: Comme nts: Home Health to Draw Tomorrow Performed By: #### L 100.0100, L503.7505, L500.2500 ####[facility] [address] [place], [address] WBC (Bld) [#/Vol] 8.7 10*3/uL Normal 4.4-11.0 [facility] Comment on above: Order Comment: Comme nts: Home Health to Draw Tomorrow Performed By: #### L 100.0100, L503.7505, L500.2500 ####[facility] [address] [facility] [place], [address] Carbon dioxide, total [Moles /volume] in Central venous bloodOrdered By: Leslie Arriaga on 04-02-2025 CO2 [Moles/Vol] 27.8 mmol/L 21.0-32.0 [facility] Chloride assayOrdered By: Linsey Arriaga on 04-02-2025 Chloride [Moles/Vol] 99 mmol/L 98-108 [facility] Eosinophil percentageOrdered By: Leslie Arriaga on 04-02-2025 Eosinophils/100 WBC (Bld) 0.8 % 0-5 [facility] Erythrocyte distribution wid th ratioOrdered By: Leslie Arriaga on 04-02-2025 Erythrocyte distribution width (RBC) [Ratio] 17.1 % High 11.6-14.6 [facility] Erythrocyte distribution wid th standard deviationOrdered By: Leslie Arriaga on 04-02-2025 Erythrocyte distribution width (RBC) [Ratio] 55.3 fl High 35.1-43.9 [facility] Glomerular filtration rate ( GFR) estimation/1.73 sq m using serum, plasma, or whole bOrdered By: Leslie Arriaga on 04-02-2025 GFR/1.73 sq M.predicted among non-blacks MDRD (S/P/Bld) [Vol rate/Area] 31 mL/min/{1.73_m2} Low >60 [facility] Comment on above: mL/min/1.73m2 CKD-EP I Creatinine Equation (2020) Hematocrit Auto (Bld) [Volum e fraction]Ordered By: Leslie Arriaga on 04-02-2025 Hematocrit (Bld) [Volume fraction] 30.6 % Low 40-54 [facility] Hemoglobin measurementOrdere d By: Leslie Arriaga on 04-02-2025 Hemoglobin (Bld) [Mass/Vol] 9.2 g/dL Low 13.0-16.5 [facility] Immature granulocytes/100 WB C Auto (Bld)Ordered By: Leslie Arriaga on 04-02-2025 Immature granulocytes/100 WBC (Bld) 0.600 % 0.0-0.9 [facility] Comment on above: IG% - Immature Granu locytes (promyelocytes, myelocytes and metamyelocytes) > 1% indicates that a LEFT SHIFT is Present. MCV (mean corpuscular volume ) determinationOrdered By: Leslie Arriaga on 04-02-2025 MCV (RBC) [Entitic vol] 89.2 fL 80-[address] [facility] Mean corpuscular hemoglobin (MCH) determinationOrdered By: Leslie Arriaga on 04-02-2025 MCH (RBC) [Entitic mass] 26.8 pg Low 27.0-32.0 [facility] Mean corpuscular hemoglobin concentration (MCHC) determinationOrdered By: Leslie Arriaga on 04-02-2025 MCHC (RBC) [Mass/Vol] 30.1 g/dL Low 32-36 [facility] Mean platelet volume determi nationOrdered By: Leslie Arriaga on 04-02-2025 Platelet mean volume (Bld) [Entitic vol] 10.6 fL 6.2-12.0 [facility] Monocyte percentageOrdered B y: Leslie Arriaga on 04-02-2025 Monocytes/100 WBC (Bld) 8.9 % 0-[address] [facility] Natriuretic peptide.B prohor girish N-Terminal [Mass/volume] in Serum or PlasmaOrdered By: Leslie Arriaga on 08-14-2025 Natriuretic peptide.B prohormone N-Terminal [Mass/Vol] 2526 pg/mL High <1800 [facility] Comment on above: Heart Failure Unlike ly: < 300 pg/mLHeart Failure Likely< 50 Years: > 450 pg/mL50-75 Years: > 900 pg/mL>75 Years: > 1800 pg/mL Neutrophil percentageOrdered By: Leslie Arriaga on 04-02-2025 Neutrophils/100 WBC (Bld) 79.4 % High 47-70 [facility] Nucleated red blood cell per centageOrdered By: Leslie Arriaga on 04-02-2025 Nucleated RBC/100 WBC (Bld) [Ratio] 0 % 0-5 [facility] Platelet countOrdered By: Linsey Arriaga on 04-02-2025 Platelets (Bld) [#/Vol] 210 10*3/uL 150-450 [facility] Potassium measurement (mass/ volume)Ordered By: Leslie Arriaga on 04-02-2025 Potassium (Unsp spec) [Mass/Vol] 5.6 mmol/L High 3.3-5.1 [facility] Pro- Brain NATRIURETIC PEPTI Adrienne 04-02-2025 Natriuretic peptide B (Bld) [Mass/Vol] 2526 pg/mL High <=1800 [facility] Comment on above: Order Comment: Comme nts: Home Health to Draw Tomorrow Result Comment: Hear t Failure Unlikely: < 300 pg/mLHeart Failure Likely< 50 Years: > 450 pg/mL50-75 Years: > 900 pg/mL>75 Years: > 1800 pg/mL Performed By: #### L 100.0100, L503.7505, L500.2500 ####[facility] [address] [place], [address] RBC Auto (Bld) [#/Vol]Ordere d By: Leslie Arriaga on 04-02-2025 RBC (Bld) [#/Vol] 3.43 10*6/uL Low 4.6-6.2 [facility] Serum creatinine measurement (mass/volume)Ordered By: Leslie Arriaga on 04-02-2025 Creatinine [Mass/Vol] 2.13 mg/dL High 0.70-1.20 [facility] Serum glucose measurement (m ass/volume)Ordered By: Leslie Arriaga on 04-02-2025 Glucose [Mass/Vol] 185 mg/dL High 70-99 [facility] Serum or plasma calcium kingsley urement (mass/volume)Ordered By: Leslie Arriaga on 04-02-2025 Calcium [Mass/Vol] 9.2 mg/dL 7.6-11.0 [facility] Serum or plasma urea nitroge n measurement (mass/volume)Ordered By: Leslie Arriaga on 04-02-2025 Urea nitrogen [Mass/Vol] 35 mg/dL High 4-19 [facility] Sodium levelOrdered By: Brian Arriaga on 04-02-2025 Sodium [Moles/Vol] 137 mmol/L 133-145 [facility] White blood cell (WBC) count Ordered By: Leslie Arriaga on 04-02-2025 WBC (Bld) [#/Vol] 8.7 10*3/uL 4.4-11.0 [facility] Absolute lymphocyte countOrd ered By: Tonio Fajardo on 03-18-2025 Lymphocytes Auto (Unsp spec) [#/Vol] 0.88 10*3/uL 0.83-4.51 [facility] Absolute neutrophil countOrd ered By: Tonio Fajardo on 03-18-2025 Neutrophils (Bld) [#/Vol] 5.9 10*3/uL 2.0-7.7 [facility] Anion gap in Serum or Plasma Ordered By: Tonio Fajardo on 03-18-2025 Anion gap [Moles/Vol] 11 mmol/L 5- [facility] Automated lymphocyte count a s percentage of total leukocytesOrdered By: Tonio Fajardo on 03-18-2025 Lymphocytes/100 WBC Auto (Unsp spec) 11.2 % Low 19-41 [facility] BUN/creatinine ratioOrdered By: Tonio Fajardo on 03-18-2025 Urea nitrogen/Creatinine [Mass ratio] 14.8 mg/mg - [facility] Basic Metabolic Profile (BMP )on 03-18-2025 BUN/CRE 14.8 RATIO Normal 06-08 [facility] Comment on above: Performed By: #### L 500.2500, L100.0100 ####[facility] [address] [place], [address] Calcium [Mass/Vol] 9.5 mg/dL Normal 7.6-11.0 [facility] Comment on above: Performed By: #### L 500.2500, L100.0100 ####[facility] [address] [place], [address] Chloride [Moles/Vol] 99 mmol/L Normal 98-108 [facility] Comment on above: Performed By: #### L 500.2500, L100.0100 ####[facility] [address] [place], [address] CO2 [Moles/Vol] 26.7 mmol/L Normal 21.0-32.0 [facility] Comment on above: Performed By: #### L 500.2500, L100.0100 ####[facility] [address] [place], [address] Creatinine [Mass/Vol] 1.59 mg/dL High 0.70-1.20 [facility] Comment on above: Performed By: #### L 500.2500, L100.0100 ####[facility] [address] [place], [address] GAP 11 Normal 5-15 [facility] Comment on above: Performed By: #### L 500.2500, L100.0100 ####[facility] [address] [place], [address] GFR/1.73 sq M.predicted among non-blacks MDRD (S/P/Bld) [Vol rate/Area] 44 mL/min/{1.73_m2} Low >60 [facility] Comment on above: Result Comment: mL/m in/1.73m2 CKD-EPI Creatinine Equation (2020) Performed By: #### L 500.2500, L100.0100 ####[facility] [address] [place], [address] Glucose [Mass/Vol] 223 mg/dL High 70-99 [facility] Comment on above: Performed By: #### L 500.2500, L100.0100 ####[facility] [address] [place], [address] Potassium [Moles/Vol] 5.2 mmol/L High 3.3-5.1 [facility] Comment on above: Performed By: #### L 500.2500, L100.0100 ####[facility] [address] [place], [address] Sodium [Moles/Vol] 137 mmol/L Normal 133-145 [facility] Comment on above: Performed By: #### L 500.2500, L100.0100 ####[facility] [address] [place], [address] Urea nitrogen [Mass/Vol] 24 mg/dL High 4-19 [facility] Comment on above: Performed By: #### L 500.2500, L100.0100 ####[facility] [address] [place], [address] Basophil percentageOrdered B y: Tonio Fajardo on 03-18-2025 Basophils/100 WBC (Bld) 0.5 % 0-[address] [facility] CBC W/Diff, Automatedon 02-19 Absolute Lymph 0.88 X10 3/uL Normal 0.83-4.51 [facility] Comment on above: Performed By: #### L 500.2500, L100.0100 ####[facility] [address] [place], [address] Absolute Neut 5.9 X10 3/uL Normal 2.0-7.7 [facility] Comment on above: Performed By: #### L 500.2500, L100.0100 ####[facility] [address] [place], [address] Basophils/100 WBC (Bld) 0.5 % Normal 0-[address] [facility] Comment on above: Performed By: #### L 500.2500, L100.0100 ####[facility] [address] [place], [address] Eosinophils/100 WBC (Bld) 3.1 % Normal 0-5 [facility] Comment on above: Performed By: #### L 500.2500, L100.0100 ####[facility] [address] [place], [address] Erythrocyte distribution width (RBC) [Ratio] 16.4 % High 11.6-14.6 [facility] Comment on above: Performed By: #### L 500.2500, L100.0100 ####[facility] [address] [place], [address] Hematocrit (Bld) [Volume fraction] 32.6 % Low 40-54 [facility] Comment on above: Performed By: #### L 500.2500, L100.0100 ####[facility] [address] [place], [address] Hemoglobin (Bld) [Mass/Vol] 9.7 g/dL Low 13.0-16.5 [facility] Comment on above: Performed By: #### L 500.2500, L100.0100 ####[facility] [address] [place], [address] IG% 1.100 High 0.0-0.9 [facility] Comment on above: Result Comment: IG% - Immature Granulocytes (promyelocytes, myelocytes andmetamyelocytes) > 1% indicates that a LEFT SHIFT is Present. Performed By: #### L 500.2500, L100.0100 ####[facility] [address] [place], [address] Lymphocytes/100 WBC (Bld) 11.2 % Low 19-41 [facility] Comment on above: Performed By: #### L 500.2500, L100.0100 ####[facility] [address] [place], [address] MCH (RBC) [Entitic mass] 26.8 pg Low 27.0-32.0 [facility] Comment on above: Performed By: #### L 500.2500, L100.0100 ####[facility] [address] [place], [address] MCHC (RBC) [Mass/Vol] 29.8 g/dL Low 32-36 [facility] Comment on above: Performed By: #### L 500.2500, L100.0100 ####[facility] [address] [place], [address] MCV (RBC) [Entitic vol] 90.1 fL Normal 80-94 [facility] Comment on above: Performed By: #### L 500.2500, L100.0100 ####[facility] [address] [place], [address] Monocytes/100 WBC (Bld) 9.4 % Normal 0-10 [facility] Comment on above: Performed By: #### L 500.2500, L100.0100 ####[facility] [address] [place], [address] Neutrophils/100 WBC (Bld) 74.7 % High 47-70 [facility] Comment on above: Performed By: #### L 500.2500, L100.0100 ####[facility] [address] [place], [address] Nucleated RBC (Bld) [#/Vol] 0 10*3/uL Normal 0-5 [facility] Comment on above: Performed By: #### L 500.2500, L100.0100 ####[facility] [address] [place], [address] Platelet mean volume (Bld) [Entitic vol] 10.4 fL Normal 6.2-12.0 [facility] Comment on above: Performed By: #### L 500.2500, L100.0100 ####[facility] [address] [place], [address] Platelets (Bld) [#/Vol] 252 10*3/uL Normal 150-450 [facility] Comment on above: Performed By: #### L 500.2500, L100.0100 ####[facility] [address] [place], [address] RBC (Bld) [#/Vol] 3.62 10*6/uL Low 4.6-6.2 [facility] Comment on above: Performed By: #### L 500.2500, L100.0100 ####[facility] [address] [place], [address] RDW SD 53.8 fl High 35.1-43.9 [facility] Comment on above: Performed By: #### L 500.2500, L100.0100 ####[facility] [address] [place], [address] WBC (Bld) [#/Vol] 7.9 10*3/uL Normal 4.4-11.0 [facility] Comment on above: Performed By: #### L 500.2500, L100.0100 ####[facility] [address] [place], [address] Carbon dioxide, total [Moles /volume] in Central venous bloodOrdered By: Tonio Fajardo on 03-18-2025 CO2 [Moles/Vol] 26.7 mmol/L 21.0-32.0 [facility] Chloride assayOrdered By: Min Fajardo on 03-18-2025 Chloride [Moles/Vol] 99 mmol/L 98-108 [facility] Eosinophil percentageOrdered By: Tonio Fajardo on 03-18-2025 Eosinophils/100 WBC (Bld) 3.1 % 0-5 [facility] Erythrocyte distribution wid th ratioOrdered By: Tonio Fajardo on 03-18-2025 Erythrocyte distribution width (RBC) [Ratio] 16.4 % High 11.6-14.6 [facility] Erythrocyte distribution wid th standard deviationOrdered By: Tonio Fajardo on 03-18-2025 Erythrocyte distribution width (RBC) [Ratio] 53.8 fl High 35.1-43.9 [facility] Glomerular filtration rate ( GFR) estimation/1.73 sq m using serum, plasma, or whole bOrdered By: Tonio Fajardo on 03-18-2025 GFR/1.73 sq M.predicted among non-blacks MDRD (S/P/Bld) [Vol rate/Area] 44 mL/min/{1.73_m2} Low >60 [facility] Comment on above: mL/min/1.73m2 CKD-EP I Creatinine Equation (2020) Hematocrit Auto (Bld) [Volum e fraction]Ordered By: Tonio Fajardo on 03-18-2025 Hematocrit (Bld) [Volume fraction] 32.6 % Low 40-54 [facility] Hemoglobin measurementOrdere d By: Tonio Fajardo on 03-18-2025 Hemoglobin (Bld) [Mass/Vol] 9.7 g/dL Low 13.0-16.5 [facility] Immature granulocytes/100 WB C Auto (Bld)Ordered By: Tonio Fajardo on 03-18-2025 Immature granulocytes/100 WBC (Bld) 1.100 % High 0.0-0.9 [facility] Comment on above: IG% - Immature Granu locytes (promyelocytes, myelocytes and metamyelocytes) > 1% indicates that a LEFT SHIFT is Present. MCV (mean corpuscular volume ) determinationOrdered By: Tonio Fajardo on 03-18-2025 MCV (RBC) [Entitic vol] 90.1 fL 80-[address] [facility] Mean corpuscular hemoglobin (MCH) determinationOrdered By: Tonio Fajardo on 03-18-2025 MCH (RBC) [Entitic mass] 26.8 pg Low 27.0-32.0 [facility] Mean corpuscular hemoglobin concentration (MCHC) determinationOrdered By: Tonio Fajardo on 03-18-2025 MCHC (RBC) [Mass/Vol] 29.8 g/dL Low 32-36 [facility] Mean platelet volume determi nationOrdered By: Tonio Fajardo on 03-18-2025 Platelet mean volume (Bld) [Entitic vol] 10.4 fL 6.2-12.0 [facility] Monocyte percentageOrdered B y: Tonio Fajardo on 03-18-2025 Monocytes/100 WBC (Bld) 9.4 % 0-[address] [facility] Neutrophil percentageOrdered By: Tonio Fajardo on 03-18-2025 Neutrophils/100 WBC (Bld) 74.7 % High 47-70 [facility] Nucleated red blood cell per centageOrdered By: Tonio Fajardo on 03-18-2025 Nucleated RBC/100 WBC (Bld) [Ratio] 0 % 0-5 [facility] Platelet countOrdered By: Min Fajardo on 03-18-2025 Platelets (Bld) [#/Vol] 252 10*3/uL 150-450 [facility] Potassium measurement (mass/ volume)Ordered By: Tonio Fajardo on 03-18-2025 Potassium (Unsp spec) [Mass/Vol] 5.2 mmol/L High 3.3-5.1 [facility] RBC Auto (Bld) [#/Vol]Ordere d By: Tonio Fajardo on 03-18-2025 RBC (Bld) [#/Vol] 3.62 10*6/uL Low 4.6-6.2 [facility] Serum creatinine measurement (mass/volume)Ordered By: Tonio Fajardo on 03-18-2025 Creatinine [Mass/Vol] 1.59 mg/dL High 0.70-1.20 [facility] Serum glucose measurement (m ass/volume)Ordered By: Tonio Fajardo on 03-18-2025 Glucose [Mass/Vol] 223 mg/dL High 70-99 [facility] Serum or plasma calcium kingsley urement (mass/volume)Ordered By: Tonio Fajardo on 03-18-2025 Calcium [Mass/Vol] 9.5 mg/dL 7.6-11.0 [facility] Serum or plasma urea nitroge n measurement (mass/volume)Ordered By: Tonio Fajardo on 03-18-2025 Urea nitrogen [Mass/Vol] 24 mg/dL High - [facility] Sodium levelOrdered By: Tonio Fajardo on 03-18-2025 Sodium [Moles/Vol] 137 mmol/L 133-145 [facility] White blood cell (WBC) count Ordered By: Tonio Fajardo on 03-18-2025 WBC (Bld) [#/Vol] 7.9 10*3/uL 4.4-11.0 [facility] Cardiology Visit Reporton Cardiology Visit Report Normal [facility] Emergency Department Summary on 03-15-2025 Emergency Department Summary Normal [facility] Basic Metabolic Profile (BMP )on 03-11-2025 BUN Normal - [facility] Comment on above: Result Comment: Canc elled via OM: Order cancelled - Patient discharged Performed By: #### L 500.2500, L100.0100 ####[facility] [address] [place], [address] BUN/CRE Normal 10-20 [facility] Comment on above: Result Comment: Canc elled via OM: Order cancelled - Patient discharged Performed By: #### L 500.2500, L100.0100 ####[facility] [address] [place], [address] Calcium Normal 7.6-11.0 [facility] Comment on above: Result Comment: Canc elled via OM: Order cancelled - Patient discharged Performed By: #### L 500.2500, L100.0100 ####[facility] [address] [place], [address] CL Normal 98-108 [facility] Comment on above: Result Comment: Canc elled via OM: Order cancelled - Patient discharged Performed By: #### L 500.2500, L100.0100 ####[facility] [address] [place], [address] CO2 Normal 21.0-32.0 [facility] Comment on above: Result Comment: Canc elled via OM: Order cancelled - Patient discharged Performed By: #### L 500.2500, L100.0100 ####[facility] [address] [place], [address] CREAT,SERUM Normal 0.70-1.20 [facility] Comment on above: Result Comment: Canc elled via OM: Order cancelled - Patient discharged Performed By: #### L 500.2500, L100.0100 ####[facility] [address] [place], [address] eGFR Normal >60 [facility] Comment on above: Result Comment: Canc elled via OM: Order cancelled - Patient discharged Performed By: #### L 500.2500, L100.0100 ####[facility] [address] [place], [address] GAP Normal 5-15 [facility] Comment on above: Result Comment: Canc elled via OM: Order cancelled - Patient discharged Performed By: #### L 500.2500, L100.0100 ####[facility] [address] [place], [address] GLU Normal 70-99 [facility] Comment on above: Result Comment: Canc elled via OM: Order cancelled - Patient discharged Performed By: #### L 500.2500, L100.0100 ####[facility] [address] [place], [address] Potassium Normal 3.3-5.1 [facility] Comment on above: Result Comment: Canc elled via OM: Order cancelled - Patient discharged Performed By: #### L 500.2500, L100.0100 ####[facility] [address] [place], [address] Basic Metabolic Profile (BMP) Normal 133-145 [facility] Comment on above: Result Comment: Canc elled via OM: Order cancelled - Patient discharged Performed By: #### L 500.2500, L100.0100 ####[facility] [address] [place], [address] CBC W/Diff, Automatedon 07-2 Absolute Neut Normal 2.0-7.7 [facility] Comment on above: Result Comment: Canc elled via OM: Order cancelled - Patient discharged Performed By: #### L 500.2500, L100.0100 ####[facility] [address] [place], [address] HCT Normal 40-54 [facility] Comment on above: Result Comment: Canc elled via OM: Order cancelled - Patient discharged Performed By: #### L 500.2500, L100.0100 ####[facility] [address] [place], [address] HGB Normal 13.0-16.5 [facility] Comment on above: Result Comment: Canc elled via OM: Order cancelled - Patient discharged Performed By: #### L 500.2500, L100.0100 ####[facility] [address] [place], [address] MCH Normal 27.0-32.0 [facility] Comment on above: Result Comment: Canc elled via OM: Order cancelled - Patient discharged Performed By: #### L 500.2500, L100.0100 ####[facility] [address] [place], [address] MCHC Normal 32-36 [facility] Comment on above: Result Comment: Canc elled via OM: Order cancelled - Patient discharged Performed By: #### L 500.2500, L100.0100 ####[facility] [address] [place], [address] MCV Normal 80-94 [facility] Comment on above: Result Comment: Canc elled via OM: Order cancelled - Patient discharged Performed By: #### L 500.2500, L100.0100 ####[facility] [address] [place], [address] NEUT% Normal 47-70 [facility] Comment on above: Result Comment: Canc elled via OM: Order cancelled - Patient discharged Performed By: #### L 500.2500, L100.0100 ####[facility] [address] [place], [address] PLT Normal 150-450 [facility] Comment on above: Result Comment: Canc elled via OM: Order cancelled - Patient discharged Performed By: #### L 500.2500, L100.0100 ####[facility] [address] [place], [address] RBC Normal 4.6-6.2 [facility] Comment on above: Result Comment: Canc elled via OM: Order cancelled - Patient discharged Performed By: #### L 500.2500, L100.0100 ####[facility] [address] [place], [address] RDW CV Normal 11.6-14.6 [facility] Comment on above: Result Comment: Canc elled via OM: Order cancelled - Patient discharged Performed By: #### L 500.2500, L100.0100 ####[facility] [address] [place], [address] RDW SD Normal 35.1-43.9 [facility] Comment on above: Result Comment: Canc elled via OM: Order cancelled - Patient discharged Performed By: #### L 500.2500, L100.0100 ####[facility] [address] [place], [address] WBC Normal 4.4-11.0 [facility] Comment on above: Result Comment: Canc elled via OM: Order cancelled - Patient discharged Performed By: #### L 500.2500, L100.0100 ####[facility] [address] [place], [address] Basic Metabolic Profile (BMP )on 03-10-2025 BUN Normal 4-19 [facility] Comment on above: Result Comment: Canc elled via OM: Order cancelled - Patient discharged Performed By: #### L 500.2500, L100.0100 ####[facility] [address] [place], [address] BUN/CRE Normal 10-20 [facility] Comment on above: Result Comment: Canc elled via OM: Order cancelled - Patient discharged Performed By: #### L 500.2500, L100.0100 ####[facility] [address] [place], [address] Calcium Normal 7.6-11.0 [facility] Comment on above: Result Comment: Canc elled via OM: Order cancelled - Patient discharged Performed By: #### L 500.2500, L100.0100 ####[facility] [address] [place], [address] CL Normal 98-108 [facility] Comment on above: Result Comment: Canc elled via OM: Order cancelled - Patient discharged Performed By: #### L 500.2500, L100.0100 ####[facility] [address] [place], [address] CO2 Normal 21.0-32.0 [facility] Comment on above: Result Comment: Canc elled via OM: Order cancelled - Patient discharged Performed By: #### L 500.2500, L100.0100 ####[facility] [address] [place], [address] CREAT,SERUM Normal 0.70-1.20 [facility] Comment on above: Result Comment: Canc elled via OM: Order cancelled - Patient discharged Performed By: #### L 500.2500, L100.0100 ####[facility] [address] [place], [address] eGFR Normal >60 [facility] Comment on above: Result Comment: Canc elled via OM: Order cancelled - Patient discharged Performed By: #### L 500.2500, L100.0100 ####[facility] [address] [place], [address] GAP Normal 5-15 [facility] Comment on above: Result Comment: Canc elled via OM: Order cancelled - Patient discharged Performed By: #### L 500.2500, L100.0100 ####[facility] [address] [place], [address] GLU Normal 70-99 [facility] Comment on above: Result Comment: Canc elled via OM: Order cancelled - Patient discharged Performed By: #### L 500.2500, L100.0100 ####[facility] [address] [place], [address] Potassium Normal 3.3-5.1 [facility] Comment on above: Result Comment: Canc elled via OM: Order cancelled - Patient discharged Performed By: #### L 500.2500, L100.0100 ####[facility] [address] [place], [address] Basic Metabolic Profile (BMP) Normal 133-145 [facility] Comment on above: Result Comment: Canc elled via OM: Order cancelled - Patient discharged Performed By: #### L 500.2500, L100.0100 ####[facility] [facility] [address] [place], [address] CBC W/Diff, Automatedon 07-2 Absolute Neut Normal 2.0-7.7 [facility] Comment on above: Result Comment: Canc elled via OM: Order cancelled - Patient discharged Performed By: #### L 500.2500, L100.0100 ####[facility] [address] [place], [address] HCT Normal 40-54 [facility] Comment on above: Result Comment: Canc elled via OM: Order cancelled - Patient discharged Performed By: #### L 500.2500, L100.0100 ####[facility] [address] [place], [address] HGB Normal 13.0-16.5 [facility] Comment on above: Result Comment: Canc elled via OM: Order cancelled - Patient discharged Performed By: #### L 500.2500, L100.0100 ####[facility] [address] [place], [address] MCH Normal 27.0-32.0 [facility] Comment on above: Result Comment: Canc elled via OM: Order cancelled - Patient discharged Performed By: #### L 500.2500, L100.0100 ####[facility] [address] [place], [address] MCHC Normal 32-36 [facility] Comment on above: Result Comment: Canc elled via OM: Order cancelled - Patient discharged Performed By: #### L 500.2500, L100.0100 ####[facility] [address] [place], [address] MCV Normal 80-94 [facility] Comment on above: Result Comment: Canc elled via OM: Order cancelled - Patient discharged Performed By: #### L 500.2500, L100.0100 ####[facility] [address] [place], [address] NEUT% Normal 47-70 [facility] Comment on above: Result Comment: Canc elled via OM: Order cancelled - Patient discharged Performed By: #### L 500.2500, L100.0100 ####[facility] [address] [place], [address] PLT Normal 150-450 [facility] Comment on above: Result Comment: Canc elled via OM: Order cancelled - Patient discharged Performed By: #### L 500.2500, L100.0100 ####[facility] [address] [place], [address] RBC Normal 4.6-6.2 [facility] Comment on above: Result Comment: Canc elled via OM: Order cancelled - Patient discharged Performed By: #### L 500.2500, L100.0100 ####[facility] [address] [place], [address] RDW CV Normal 11.6-14.6 [facility] Comment on above: Result Comment: Canc elled via OM: Order cancelled - Patient discharged Performed By: #### L 500.2500, L100.0100 ####[facility] [address] [place], [address] RDW SD Normal 35.1-43.9 [facility] Comment on above: Result Comment: Canc elled via OM: Order cancelled - Patient discharged Performed By: #### L 500.2500, L100.0100 ####[facility] [address] [place], [address] WBC Normal 4.4-11.0 [facility] Comment on above: Result Comment: Canc elled via OM: Order cancelled - Patient discharged Performed By: #### L 500.2500, L100.0100 ####[facility] [address] [place], [address] Absolute lymphocyte countOrd ered By: Deric Lantigua on 03-09-2025 Lymphocytes Auto (Unsp spec) [#/Vol] 0.53 10*3/uL Low 0.83-4.51 [facility] Absolute neutrophil countOrd ered By: Deric Lantigua on 03-09-2025 Neutrophils (Bld) [#/Vol] 4.0 10*3/uL 2.0-7.7 [facility] Anion gap in Serum or Plasma Ordered By: Deric Lantigua on 03-09-2025 Anion gap [Moles/Vol] 10 mmol/L 5-15 [facility] Automated lymphocyte count a s percentage of total leukocytesOrdered By: Deric Lantigua on 03-09-2025 Lymphocytes/100 WBC Auto (Unsp spec) 9.7 % Low 19-41 [facility] BUN/creatinine ratioOrdered By: Deric Lantigua on 03-09-2025 Urea nitrogen/Creatinine [Mass ratio] 20.8 mg/mg High 10-20 [facility] Basic Metabolic Profile (BMP )on 03-09-2025 BUN/CRE 20.8 RATIO High 10-20 [facility] Comment on above: Performed By: #### L 100.0100, L500.2500 ####[facility] [address] [place], [address] Calcium [Mass/Vol] 9.0 mg/dL Normal 7.6-11.0 [facility] Comment on above: Performed By: #### L 100.0100, L500.2500 ####[facility] [address] [place], [address] Chloride [Moles/Vol] 101 mmol/L Normal 98-108 [facility] Comment on above: Performed By: #### L 100.0100, L500.2500 ####[facility] [address] [place], [address] CO2 [Moles/Vol] 26.6 mmol/L Normal 21.0-32.0 [facility] Comment on above: Performed By: #### L 100.0100, L500.2500 ####[facility] [address] [place], [address] Creatinine [Mass/Vol] 2.41 mg/dL High 0.70-1.20 [facility] Comment on above: Performed By: #### L 100.0100, L500.2500 ####[facility] [address] [place], [address] ECRCL 24.14 ml/min Low 50-250 [facility] Comment on above: Performed By: #### L 100.0100, L500.2500 ####[facility] [address] [place], [address] GAP 10 Normal 5-15 [facility] Comment on above: Performed By: #### L 100.0100, L500.2500 ####[facility] [address] [place], [address] GFR/1.73 sq M.predicted among non-blacks MDRD (S/P/Bld) [Vol rate/Area] 26 mL/min/{1.73_m2} Low >60 [facility] Comment on above: Result Comment: mL/m in/1.73m2 CKD-EPI Creatinine Equation (2020) Performed By: #### L 100.0100, L500.2500 ####[facility] [address] [place], [address] Glucose [Mass/Vol] 118 mg/dL High 70-99 [facility] Comment on above: Performed By: #### L 100.0100, L500.2500 ####[facility] [address] [place], [address] Potassium [Moles/Vol] 4.3 mmol/L Normal 3.3-5.1 [facility] Comment on above: Performed By: #### L 100.0100, L500.2500 ####[facility] [address] [place], [address] Sodium [Moles/Vol] 138 mmol/L Normal 133-145 [facility] Comment on above: Performed By: #### L 100.0100, L500.2500 ####[facility] [address] [place], [address] Urea nitrogen [Mass/Vol] 50 mg/dL High 4-19 [facility] Comment on above: Performed By: #### L 100.0100, L500.2500 ####[facility] [address] [place], [address] Basophil percentageOrdered B y: Deric Lantigua on 03-09-2025 Basophils/100 WBC (Bld) 0.2 % 0-[address] [facility] Bedside Glucoseon 03-09-2025 FINGERSTICK GLU 184 mg/dL High 74-106 [facility] Comment on above: Result Comment: KODY GEMENT OF PATIENT CARE PER NURSING PROTOCOL Performed By: #### L 501.080 ####[facility] [address] [place], [address] FINGERSTICK GLU 112 mg/dL High 74-106 [facility] Comment on above: Result Comment: KODY GEMENT OF PATIENT CARE PER NURSING PROTOCOL Performed By: #### L 501.080 ####[facility] [address] [place], [address] CBC W/Diff, Automatedon - Absolute Lymph 0.53 X10 3/uL Low 0.83-4.51 [facility] Comment on above: Performed By: #### L 100.0100, L500.2500 ####[facility] [address] [place], [address] Absolute Neut 4.0 X10 3/uL Normal 2.0-7.7 [facility] Comment on above: Performed By: #### L 100.0100, L500.2500 ####[facility] [address] [place], [address] Basophils/100 WBC (Bld) 0.2 % Normal 0-[address] [facility] Comment on above: Performed By: #### L 100.0100, L500.2500 ####[facility] [address] [place], [address] Eosinophils/100 WBC (Bld) 4.8 % Normal 0-5 [facility] Comment on above: Performed By: #### L 100.0100, L500.2500 ####[facility] [address] [place], [address] Erythrocyte distribution width (RBC) [Ratio] 16.3 % High 11.6-14.6 [facility] Comment on above: Performed By: #### L 100.0100, L500.2500 ####[facility] [address] [place], [address] Hematocrit (Bld) [Volume fraction] 29.6 % Low 40-54 [facility] Comment on above: Performed By: #### L 100.0100, L500.2500 ####[facility] [address] [place], [address] Hemoglobin (Bld) [Mass/Vol] 9.3 g/dL Low 13.0-16.5 [facility] Comment on above: Performed By: #### L 100.0100, L500.2500 ####[facility] [address] [place], [address] IG% 0.600 Normal 0.0-0.9 [facility] Comment on above: Result Comment: IG% - Immature Granulocytes (promyelocytes, myelocytes andmetamyelocytes) > 1% indicates that a LEFT SHIFT is Present. Performed By: #### L 100.0100, L500.2500 ####[facility] [address] [place], [address] Lymphocytes/100 WBC (Bld) 9.7 % Low 19-41 [facility] Comment on above: Performed By: #### L 100.0100, L500.2500 ####[facility] [address] [place], [address] MCH (RBC) [Entitic mass] 27.5 pg Normal 27.0-32.0 [facility] Comment on above: Performed By: #### L 100.0100, L500.2500 ####[facility] [address] [place], [address] MCHC (RBC) [Mass/Vol] 31.4 g/dL Low 32-36 [facility] Comment on above: Performed By: #### L 100.0100, L500.2500 ####[facility] [address] [place], [address] MCV (RBC) [Entitic vol] 87.6 fL Normal 80-[address] [facility] Comment on above: Performed By: #### L 100.0100, L500.2500 ####[facility] [address] [place], [address] Monocytes/100 WBC (Bld) 12.1 % High 0-[address] [facility] Comment on above: Performed By: #### L 100.0100, L500.2500 ####[facility] [address] [place], [address] Neutrophils/100 WBC (Bld) 72.6 % High 47-70 [facility] Comment on above: Performed By: #### L 100.0100, L500.2500 ####[facility] [address] [place], [address] Nucleated RBC (Bld) [#/Vol] 0 10*3/uL Normal 0-5 [facility] Comment on above: Performed By: #### L 100.0100, L500.2500 ####[facility] [address] [place], [address] Platelet mean volume (Bld) [Entitic vol] 10.0 fL Normal 6.2-12.0 [facility] Comment on above: Performed By: #### L 100.0100, L500.2500 ####[facility] [address] [place], [address] Platelets (Bld) [#/Vol] 162 10*3/uL Normal 150-450 [facility] Comment on above: Performed By: #### L 100.0100, L500.2500 ####[facility] [address] [place], [address] RBC (Bld) [#/Vol] 3.38 10*6/uL Low 4.6-6.2 [facility] Comment on above: Performed By: #### L 100.0100, L500.2500 ####[facility] [address] [place], [address] RDW SD 51.8 fl High 35.1-43.9 [facility] Comment on above: Performed By: #### L 100.0100, L500.2500 ####[facility] [address] [place], [address] WBC (Bld) [#/Vol] 5.5 10*3/uL Normal 4.4-11.0 [facility] Comment on above: Performed By: #### L 100.0100, L500.2500 ####[facility] [address] [place], [address] Carbon dioxide, total [Moles /volume] in Central venous bloodOrdered By: Deric Lantigua on 03-09-2025 CO2 [Moles/Vol] 26.6 mmol/L 21.0-32.0 [facility] Chloride assayOrdered By: Silvia Lantigua on 03-09-2025 Chloride [Moles/Vol] 101 mmol/L 98-108 [facility] Discharge Instructionon 02-18 Discharge Instruction Normal [facility] Eosinophil percentageOrdered By: Deric Lantigua on 03-09-2025 Eosinophils/100 WBC (Bld) 4.8 % 0-5 [facility] Erythrocyte distribution wid th ratioOrdered By: Deric Lantigua on 03-09-2025 Erythrocyte distribution width (RBC) [Ratio] 16.3 % High 11.6-14.6 [facility] Erythrocyte distribution wid th standard deviationOrdered By: Deric Lantigua on 03-09-2025 Erythrocyte distribution width (RBC) [Ratio] 51.8 fl High 35.1-43.9 [facility] Glomerular filtration rate ( GFR) estimation/1.73 sq m using serum, plasma, or whole bOrdered By: Deric Lantigua on 03-09-2025 GFR/1.73 sq M.predicted among non-blacks MDRD (S/P/Bld) [Vol rate/Area] 26 mL/min/{1.73_m2} Low >60 [facility] Comment on above: mL/min/1.73m2 CKD-EP I Creatinine Equation (2020) [facility] deOrdered By: Deric Lantigua on 03-09-2025 Glucose [Mass/Vol] 184 mg/dL High 74-106 [facility] Comment on above: MANAGEMENT OF PATIEN T CARE PER NURSING PROTOCOL Hematocrit Auto (Bld) [Volum e fraction]Ordered By: Deric Lantigua on 03-09-2025 Hematocrit (Bld) [Volume fraction] 29.6 % Low 40-54 [facility] Hemoglobin measurementOrdere d By: Deric Lantigua on 03-09-2025 Hemoglobin (Bld) [Mass/Vol] 9.3 g/dL Low 13.0-16.5 [facility] Immature granulocytes/100 WB C Auto (Bld)Ordered By: Deric Lantigua on 03-09-2025 Immature granulocytes/100 WBC (Bld) 0.600 % 0.0-0.9 [facility] Comment on above: IG% - Immature Granu locytes (promyelocytes, myelocytes and metamyelocytes) > 1% indicates that a LEFT SHIFT is Present. MCV (mean corpuscular volume ) determinationOrdered By: Deric Lantigua on 03-09-2025 MCV (RBC) [Entitic vol] 87.6 fL 80-[address] [facility] Mean corpuscular hemoglobin (MCH) determinationOrdered By: Deric Lantigua on 03-09-2025 MCH (RBC) [Entitic mass] 27.5 pg 27.0-32.0 [facility] Mean corpuscular hemoglobin concentration (MCHC) determinationOrdered By: Deric Lantigua on 03-09-2025 MCHC (RBC) [Mass/Vol] 31.4 g/dL Low 32-36 [facility] Mean platelet volume determi nationOrdered By: Deric Lantigua on 03-09-2025 Platelet mean volume (Bld) [Entitic vol] 10.0 fL 6.2-12.0 [facility] Monocyte percentageOrdered B y: Deric Lantigua on 03-09-2025 Monocytes/100 WBC (Bld) 12.1 % High 0-[address] [facility] Neutrophil percentageOrdered By: Deric Lantigua on 03-09-2025 Neutrophils/100 WBC (Bld) 72.6 % High 47-70 [facility] Nucleated red blood cell per centageOrdered By: Deric Lantigua on 03-09-2025 Nucleated RBC/100 WBC (Bld) [Ratio] 0 % 0-5 [facility] Platelet countOrdered By: Silvia Lantigua on 03-09-2025 Platelets (Bld) [#/Vol] 162 10*3/uL 150-450 [facility] Potassium measurement (mass/ volume)Ordered By: Deric Lantigua on 03-09-2025 Potassium (Unsp spec) [Mass/Vol] 4.3 mmol/L 3.3-5.1 [facility] RBC Auto (Bld) [#/Vol]Ordere d By: Deric Lantigua on 03-09-2025 RBC (Bld) [#/Vol] 3.38 10*6/uL Low 4.6-6.2 [facility] Serum creatinine measurement (mass/volume)Ordered By: Deric Lantigua on 03-09-2025 Creatinine [Mass/Vol] 2.41 mg/dL High 0.70-1.20 [facility] Serum glucose measurement (m ass/volume)Ordered By: Deric Lantigua on 03-09-2025 Glucose [Mass/Vol] 118 mg/dL High 70-99 [facility] Serum or plasma calcium [place] urement (mass/volume)Ordered By: Deric Lantigua on 03-09-2025 Calcium [Mass/Vol] 9.0 mg/dL 7.6-11.0 [facility] Serum or plasma urea nitroge n measurement (mass/volume)Ordered By: Deric Lantigua on 03-09-2025 Urea nitrogen [Mass/Vol] 50 mg/dL High 4-19 [facility] Sodium levelOrdered By: Mikki Lantigua on 03-09-2025 Sodium [Moles/Vol] 138 mmol/L 133-145 [facility] White blood cell (WBC) count Ordered By: Deric Lantigua on 03-09-2025 WBC (Bld) [#/Vol] 5.5 10*3/uL 4.4-11.0 [facility] Basic Metabolic Profile (BMP )on 03-08-2025 BUN/CRE 19.9 RATIO Normal 10-20 [facility] Comment on above: Performed By: #### L 500.2500 ####[facility] [address] [facility] [address] Calcium [Mass/Vol] 8.8 mg/dL Normal 7.6-11.0 [facility] Comment on above: Performed By: #### L 500.2500 ####[facility] [address] [place], [address] Chloride [Moles/Vol] 99 mmol/L Normal 98-108 [facility] Comment on above: Performed By: #### L 500.2500 ####[facility] [address] [place], [address] CO2 [Moles/Vol] 27.0 mmol/L Normal 21.0-32.0 [facility] Comment on above: Performed By: #### L 500.2500 ####[facility] [address] [place], [address] Creatinine [Mass/Vol] 3.11 mg/dL High 0.70-1.20 [facility] Comment on above: Performed By: #### L 500.2500 ####[facility] [address] [place], [address] ECRCL 17.10 ml/min Low 50-250 [facility] Comment on above: Performed By: #### L 500.2500 ####[facility] [address] [place], [address] GAP 10 Normal 5-15 [facility] Comment on above: Performed By: #### L 500.2500 ####[facility] [address] [place], [address] GFR/1.73 sq M.predicted among non-blacks MDRD (S/P/Bld) [Vol rate/Area] 19 mL/min/{1.73_m2} Low >60 [facility] Comment on above: Result Comment: mL/m in/1.73m2 CKD-EPI Creatinine Equation (2020) Performed By: #### L 500.2500 ####[facility] [address] [place], [address] Glucose [Mass/Vol] 127 mg/dL High 70-99 [facility] Comment on above: Performed By: #### L 500.2500 ####[facility] [address] [place], [address] Potassium [Moles/Vol] 5.3 mmol/L High 3.3-5.1 [facility] Comment on above: Performed By: #### L 500.2500 ####[facility] [address] [place], [address] Sodium [Moles/Vol] 135 mmol/L Normal 133-145 [facility] Comment on above: Performed By: #### L 500.2500 ####[facility] [address] [place], [address] Urea nitrogen [Mass/Vol] 62 mg/dL High 4-19 [facility] Comment on above: Performed By: #### L 500.2500 ####[facility] [address] [place], [address] Bedside Glucoseon 03-08-2025 FINGERSTICK GLU 132 mg/dL High 74-106 [facility] Comment on above: Result Comment: KODY GEMENT OF PATIENT CARE PER NURSING PROTOCOL Performed By: #### L 501.080 ####[facility] [address] [place], [address] FINGERSTICK GLU 142 mg/dL High 74-106 [facility] Comment on above: Result Comment: KODY GEMENT OF PATIENT CARE PER NURSING PROTOCOL Performed By: #### L 501.080 ####[facility] [address] [place], [address] FINGERSTICK GLU 128 mg/dL High 74-106 [facility] Comment on above: Result Comment: KODY GEMENT OF PATIENT CARE PER NURSING PROTOCOL Performed By: #### L 501.080 ####[facility] [address] [place], [address] FINGERSTICK GLU 122 mg/dL High 74-106 [facility] Comment on above: Result Comment: KODY GEMENT OF PATIENT CARE PER NURSING PROTOCOL Performed By: #### L 501.080 ####[facility] [address] [place], [address] Magnesiumon 03-08-2025 Magnesium [Mass/Vol] 2.3 mg/dL High 1.5-2.2 [facility] Comment on above: Performed By: #### L 501.5200 ####[facility] [address] [place], [address] Magnesium measurement (mass/ volume)Ordered By: Nicola Madison on 03-08-2025 Magnesium (Unsp spec) [Mass/Vol] 2.3 mg/dL High 1.5-2.2 [facility] Potassiumon 03-08-2025 Potassium [Moles/Vol] 5.5 mmol/L High 3.3-5.1 [facility] Comment on above: Performed By: #### L 501.5600 ####[facility] [address] [place], [address] Basic Metabolic Profile (BMP )on 03-07-2025 BUN/CRE 18.2 RATIO Normal 10-20 [facility] Comment on above: Performed By: #### L 500.2500 ####[facility] [address] [place], [address] Calcium [Mass/Vol] 8.7 mg/dL Normal 7.6-11.0 [facility] Comment on above: Performed By: #### L 500.2500 ####[facility] [address] [place], [address] Chloride [Moles/Vol] 97 mmol/L Low 98-108 [facility] Comment on above: Performed By: #### L 500.2500 ####[facility] [address] [place], [address] CO2 [Moles/Vol] 26.3 mmol/L Normal 21.0-32.0 [facility] Comment on above: Performed By: #### L 500.2500 ####[facility] [address] [place], [address] Creatinine [Mass/Vol] 3.09 mg/dL High 0.70-1.20 [facility] Comment on above: Performed By: #### L 500.2500 ####[facility] [address] [place], [address] ECRCL 17.21 ml/min Low 50-250 [facility] Comment on above: Performed By: #### L 500.2500 ####[facility] [address] [place], [address] GAP 10 Normal 5-15 [facility] Comment on above: Performed By: #### L 500.2500 ####[facility] [address] [place], [address] GFR/1.73 sq M.predicted among non-blacks MDRD (S/P/Bld) [Vol rate/Area] 20 mL/min/{1.73_m2} Low >60 [facility] Comment on above: Result Comment: mL/m in/1.73m2 CKD-EPI Creatinine Equation (2020) Performed By: #### L 500.2500 ####[facility] [address] [place], [address] Glucose [Mass/Vol] 126 mg/dL High 70-99 [facility] Comment on above: Performed By: #### L 500.2500 ####[facility] [address] [place], [address] Potassium [Moles/Vol] 4.8 mmol/L Normal 3.3-5.1 [facility] Comment on above: Performed By: #### L 500.2500 ####[facility] [address] [place], [address] Sodium [Moles/Vol] 134 mmol/L Normal 133-145 [facility] Comment on above: Performed By: #### L 500.2500 ####[facility] [address] [place], [address] Urea nitrogen [Mass/Vol] 56 mg/dL High 4-19 [facility] Comment on above: Performed By: #### L 500.2500 ####[facility] [address] [place], [address] Bedside Glucoseon 03-07-2025 FINGERSTICK GLU 151 mg/dL High 74-106 [facility] Comment on above: Result Comment: KODY GEMENT OF PATIENT CARE PER NURSING PROTOCOL Performed By: #### L 501.080 ####[facility] [address] [place], [address] FINGERSTICK GLU 191 mg/dL High 74-106 [facility] Comment on above: Result Comment: KODY GEMENT OF PATIENT CARE PER NURSING PROTOCOL Performed By: #### L 501.080 ####[facility] [address] [place], [address] FINGERSTICK GLU 184 mg/dL High 74-106 [facility] Comment on above: Result Comment: KODY GEMENT OF PATIENT CARE PER NURSING PROTOCOL Performed By: #### L 501.080 ####[facility] [address] [place], [address] FINGERSTICK GLU 127 mg/dL High 74-106 [facility] Comment on above: Result Comment: KODY GEMENT OF PATIENT CARE PER NURSING PROTOCOL Performed By: #### L 501.080 ####[facility] [address] [place], [place], [address] Urine Cultureon 03-07-2025 [facility] Comments: On UA samp le of 03/04 Culture exhibits no growth. Normal [facility] Comment on above: Performed By: #### M 100.2200 ####[facility] [address] [place], [address] Basic Metabolic Profile (BMP )on 03-06-2025 BUN/CRE 17.8 RATIO Normal 10-20 [facility] Comment on above: Performed By: #### L 500.2500, L501.2300 ####[facility] [address] [place], [address] Calcium [Mass/Vol] 9.1 mg/dL Normal 7.6-11.0 [facility] Comment on above: Performed By: #### L 500.2500, L501.2300 ####[facility] [address] [place], [address] Chloride [Moles/Vol] 99 mmol/L Normal 98-108 [facility] Comment on above: Performed By: #### L 500.2500, L501.2300 ####[facility] [address] [place], [address] CO2 [Moles/Vol] 31.2 mmol/L Normal 21.0-32.0 [facility] Comment on above: Performed By: #### L 500.2500, L501.2300 ####[facility] [address] [place], [address] Creatinine [Mass/Vol] 2.23 mg/dL High 0.70-1.20 [facility] Comment on above: Performed By: #### L 500.2500, L501.2300 ####[facility] [address] [place], [address] ECRCL 23.84 ml/min Low 50-250 [facility] Comment on above: Performed By: #### L 500.2500, L501.2300 ####[facility] [address] [place], [address] GAP 8 Normal 5-15 [facility] Comment on above: Performed By: #### L 500.2500, L501.2300 ####[facility] [address] [place], [address] GFR/1.73 sq M.predicted among non-blacks MDRD (S/P/Bld) [Vol rate/Area] 29 mL/min/{1.73_m2} Low >60 [facility] Comment on above: Result Comment: mL/m in/1.73m2 CKD-EPI Creatinine Equation (2020) Performed By: #### L 500.2500, L501.2300 ####[facility] [address] [place], [address] Glucose [Mass/Vol] 118 mg/dL High 70-99 [facility] Comment on above: Performed By: #### L 500.2500, L501.2300 ####[facility] [address] [place], [address] Potassium [Moles/Vol] 4.7 mmol/L Normal 3.3-5.1 [facility] Comment on above: Performed By: #### L 500.2500, L501.2300 ####[facility] [address] [place], [address] Sodium [Moles/Vol] 138 mmol/L Normal 133-145 [facility] Comment on above: Performed By: #### L 500.2500, L501.2300 ####[facility] [address] [place], [address] Urea nitrogen [Mass/Vol] 40 mg/dL High 4-19 [facility] Comment on above: Performed By: #### L 500.2500, L501.2300 ####[facility] [address] [place], [address] Bedside Glucoseon 03-06-2025 FINGERSTICK GLU 146 mg/dL High 74-106 [facility] Comment on above: Result Comment: KODY GEMENT OF PATIENT CARE PER NURSING PROTOCOL Performed By: #### L 501.080 ####[facility] [address] [place], [address] FINGERSTICK GLU 117 mg/dL High 74-106 [facility] Comment on above: Result Comment: KODY GEMENT OF PATIENT CARE PER NURSING PROTOCOL Performed By: #### L 501.080 ####[facility] [address] [place], [address] FINGERSTICK GLU 229 mg/dL High 74-106 [facility] Comment on above: Result Comment: KODY GEMENT OF PATIENT CARE PER NURSING PROTOCOL Performed By: #### L 501.080 ####[facility] [address] [place], [address] FINGERSTICK GLU 109 mg/dL High 74-106 [facility] Comment on above: Result Comment: KODY GEMENT OF PATIENT CARE PER NURSING PROTOCOL Performed By: #### L 501.080 ####[facility] [address] [place], [address] FINGERSTICK GLU 140 mg/dL High 74-106 [facility] Comment on above: Result Comment: KODY GEMENT OF PATIENT CARE PER NURSING PROTOCOL Performed By: #### L 501.080 ####[facility] [address] [place], [address] Consultation - Cardiologyon 03-06-2025 Consultation - Cardiology Normal [facility] Phosphoruson 03-06-2025 Phosphate [Mass/Vol] 3.9 mg/dL Normal 2.7-4.5 [facility] Comment on above: Performed By: #### L 500.2500, L501.2300 ####[facility] [address] [place], [address] Urine cultureOrdered By: Kavita Lantigua on 03-06-2025 Bacteria identified Cx Nom (U) Culture exhibits no growth. [facility] Bedside Glucoseon 03-05-2025 FINGERSTICK GLU 111 mg/dL High 74-106 [facility] Comment on above: Result Comment: KODY GEMENT OF PATIENT CARE PER NURSING PROTOCOL Performed By: #### L 501.080 ####[facility] [address] [place], [address] FINGERSTICK GLU 152 mg/dL High 74-106 [facility] Comment on above: Result Comment: KODY GEMENT OF PATIENT CARE PER NURSING PROTOCOL Performed By: #### L 501.080 ####[facility] [address] [place], [address] FINGERSTICK GLU 159 mg/dL High 74-106 [facility] Comment on above: Result Comment: KODY GEMENT OF PATIENT CARE PER NURSING PROTOCOL Performed By: #### L 501.080 ####[facility] [address] [place], [address] Bilirubin, totalOrdered By: Nicola Madison on 03-05-2025 Bilirubin [Mass/Vol] 0.46 mg/dL 0.00-1.30 [facility] CBC W/Diff, Automatedon 02-17 Absolute Lymph 0.72 X10 3/uL Low 0.83-4.51 [facility] Comment on above: Performed By: #### L 501.2300, L100.0100 ####[facility] [address] [place], [address] Absolute Neut 5.8 X10 3/uL Normal 2.0-7.7 [facility] Comment on above: Performed By: #### L 501.2300, L100.0100 ####[facility] [address] [place], [address] Basophils/100 WBC (Bld) 0.4 % Normal 0-[address] [facility] Comment on above: Performed By: #### L 501.2300, L100.0100 ####[facility] [address] [place], [address] Eosinophils/100 WBC (Bld) 2.0 % Normal 0-5 [facility] Comment on above: Performed By: #### L 501.2300, L100.0100 ####[facility] [address] [place], [address] Erythrocyte distribution width (RBC) [Ratio] 16.6 % High 11.6-14.6 [facility] Comment on above: Performed By: #### L 501.2300, L100.0100 ####[facility] [address] [place], [address] Hematocrit (Bld) [Volume fraction] 30.1 % Low 40-54 [facility] Comment on above: Performed By: #### L 501.2300, L100.0100 ####[facility] [address] [place], [address] Hemoglobin (Bld) [Mass/Vol] 9.3 g/dL Low 13.0-16.5 [facility] Comment on above: Performed By: #### L 501.2300, L100.0100 ####[facility] [address] [place], [address] IG% 0.300 Normal 0.0-0.9 [facility] Comment on above: Result Comment: IG% - Immature Granulocytes (promyelocytes, myelocytes andmetamyelocytes) > 1% indicates that a LEFT SHIFT is Present. Performed By: #### L 501.2300, L100.0100 ####[facility] [address] [place], [address] Lymphocytes/100 WBC (Bld) 9.5 % Low 19-41 [facility] Comment on above: Performed By: #### L 501.2300, L100.0100 ####[facility] [address] [place], [address] MCH (RBC) [Entitic mass] 27.0 pg Normal 27.0-32.0 [facility] Comment on above: Performed By: #### L 501.2300, L100.0100 ####[facility] [address] [place], [address] MCHC (RBC) [Mass/Vol] 30.9 g/dL Low 32-36 [facility] Comment on above: Performed By: #### L 501.2300, L100.0100 ####[facility] [address] [place], [address] MCV (RBC) [Entitic vol] 87.5 fL Normal 80-[address] [facility] Comment on above: Performed By: #### L 501.2300, L100.0100 ####[facility] [address] [place], [address] Monocytes/100 WBC (Bld) 11.4 % High 0-[address] [facility] Comment on above: Performed By: #### L 501.2300, L100.0100 ####[facility] [address] [place], [address] Neutrophils/100 WBC (Bld) 76.4 % High 47-70 [facility] Comment on above: Performed By: #### L 501.2300, L100.0100 ####[facility] [address] [place], [address] Nucleated RBC (Bld) [#/Vol] 0 10*3/uL Normal 0-5 [facility] Comment on above: Performed By: #### L 501.2300, L100.0100 ####[facility] [address] [place], [address] Platelet mean volume (Bld) [Entitic vol] 10.7 fL Normal 6.2-12.0 [facility] Comment on above: Performed By: #### L 501.2300, L100.0100 ####[facility] [address] [place], [address] Platelets (Bld) [#/Vol] 181 10*3/uL Normal 150-450 [facility] Comment on above: Performed By: #### L 501.2300, L100.0100 ####[facility] [address] [place], [address] RBC (Bld) [#/Vol] 3.44 10*6/uL Low 4.6-6.2 [facility] Comment on above: Performed By: #### L 501.2300, L100.0100 ####[facility] [address] [place], [address] RDW SD 52.8 fl High 35.1-43.9 [facility] Comment on above: Performed By: #### L 501.2300, L100.0100 ####[facility] [address] [place], [address] WBC (Bld) [#/Vol] 7.6 10*3/uL Normal 4.4-11.0 [facility] Comment on above: Performed By: #### L 501.2300, L100.0100 ####[facility] [address] [place], [address] Calculated very low density lipoprotein (VLDL) cholesterol measurementOrdered By: Nicola Madison on 03-05-2025 Calculated very low density lipoprotein (VLDL) cholesterol measurement 16 mg/dL 5-40 [facility] Chest 1 View (Portable)on Chest 1 View (Portable) Normal [facility] Comprehensive Metabolic Prof ilon 03-05-2025 Albumin [Mass/Vol] 3.4 g/dL Normal 3.4-4.8 [facility] Comment on above: Performed By: #### L 500.4050, L503.7505, L500.4100 ####[facility] [address] [place], [address] Albumin/Globulin [Mass ratio] 0.9 {ratio} Normal 0.9-2.4 [facility] Comment on above: Performed By: #### L 500.4050, L503.7505, L500.4100 ####[facility] [address] [place], [address] ALK PHOS 75 U/L Normal 40-129 [facility] Comment on above: Performed By: #### L 500.4050, L503.7505, L500.4100 ####[facility] [address] [place], [address] ALT [Catalytic activity/Vol] 10 U/L Normal <=46 [facility] Comment on above: Performed By: #### L 500.4050, L503.7505, L500.4100 ####[facility] [address] [place], [address] AST [Catalytic activity/Vol] 15 U/L Normal <=37 [facility] Comment on above: Performed By: #### L 500.4050, L503.7505, L500.4100 ####[facility] [address] [place], [address] Bilirubin [Mass/Vol] 0.46 mg/dL Normal 0.00-1.30 [facility] Comment on above: Performed By: #### L 500.4050, L503.7505, L500.4100 ####[facility] [address] [place], [address] BUN/CRE 18.6 RATIO Normal 10-20 [facility] Comment on above: Performed By: #### L 500.4050, L503.7505, L500.4100 ####[facility] [address] [place], [address] Calcium [Mass/Vol] 9.1 mg/dL Normal 7.6-11.0 [facility] Comment on above: Performed By: #### L 500.4050, L503.7505, L500.4100 ####[facility] [address] [place], [address] Chloride [Moles/Vol] 101 mmol/L Normal 98-108 [facility] Comment on above: Performed By: #### L 500.4050, L503.7505, L500.4100 ####[facility] [address] [place], [address] CO2 [Moles/Vol] 27.2 mmol/L Normal 21.0-32.0 [facility] Comment on above: Performed By: #### L 500.4050, L503.7505, L500.4100 ####[facility] [address] [place], [address] Creatinine [Mass/Vol] 1.95 mg/dL High 0.70-1.20 [facility] Comment on above: Performed By: #### L 500.4050, L503.7505, L500.4100 ####[facility] [address] [place], [address] ECRCL 27.26 ml/min Low 50-250 [facility] Comment on above: Performed By: #### L 500.4050, L503.7505, L500.4100 ####[facility] [address] [place], [address] GAP 10 Normal 5-15 [facility] Comment on above: Performed By: #### L 500.4050, L503.7505, L500.4100 ####[facility] [address] [place], [address] GFR/1.73 sq M.predicted among non-blacks MDRD (S/P/Bld) [Vol rate/Area] 34 mL/min/{1.73_m2} Low >60 [facility] Comment on above: Result Comment: mL/m in/1.73m2 CKD-EPI Creatinine Equation (2020) Performed By: #### L 500.4050, L503.7505, L500.4100 ####[facility] [address] [place], [address] Globulin (S) [Mass/Vol] 3.9 g/dL Normal 2.2-4.2 [facility] Comment on above: Performed By: #### L 500.4050, L503.7505, L500.4100 ####[facility] [address] [place], [address] Glucose [Mass/Vol] 171 mg/dL High 70-99 [facility] Comment on above: Performed By: #### L 500.4050, L503.7505, L500.4100 ####[facility] [address] [place], [address] Potassium [Moles/Vol] 5.0 mmol/L Normal 3.3-5.1 [facility] Comment on above: Performed By: #### L 500.4050, L503.7505, L500.4100 ####[facility] [address] [place], [address] Sodium [Moles/Vol] 138 mmol/L Normal 133-145 [facility] Comment on above: Performed By: #### L 500.4050, L503.7505, L500.4100 ####[facility] [address] [place], [address] T PROT 7.3 g/dL Normal 5.9-8.4 [facility] Comment on above: Performed By: #### L 500.4050, L503.7505, L500.4100 ####[facility] [address] [place], [address] Urea nitrogen [Mass/Vol] 36 mg/dL High 4-19 [facility] Comment on above: Performed By: #### L 500.4050, L503.7505, L500.4100 ####[facility] [address] [place], [address] Echocardiogram study reportO rdered By: Marjorie Green on 03-05-2025 Study report [facility] [address] [place] [address] Echo Complete W/ Contrast 03/05/25 0941 MR#: [id number] Acct: [id number] Name: PEDRO HILLMAN Rep #:[id number] : 1945 80 From: Marjorie Green MD [...] Date Dictated: 03/05/25940 Date Transcribed: 03/05/25 115 Manager Council: Signed [facility] Work Phone: [phone] 03-05-2025 Natriuretic peptide B (Bld) [Mass/Vol] 4176 pg/mL High <=1800 [facility] Comment on above: Result Comment: Hear t Failure Unlikely: < 300 pg/mLHeart Failure Likely< 50 Years: > 450 pg/mL50-75 Years: > 900 pg/mL>75 Years: > 1800 pg/mL Performed By: Anthony### L 500.4050, L503.7505, L500.4100 ####[facility] [address] [place], [address] LDL calc ser/plasOrdered By: Nicola Madison on 03-05-2025 Cholesterol in LDL [Mass/Vol] 63 mg/dL [facility] Comment on above: Kjgscgzhis=296-869 m g/dL & Higher Hcpf=566 mg/dL or greater Laboratory - Chemistry and C hemistry - challengeOrdered By: Nicola Madison on 03-05-2025 AST [Catalytic activity/Vol] 15 U/L <38 [facility] Lipid Profileon 03-05-2025 CHOL:HDL 3.04 Normal [facility] Comment on above: Performed By: #### L 500.4050, L503.7505, L500.4100 ####[facility] [address] [place], [address] Cholesterol [Mass/Vol] 117 mg/dL Normal <=200 [facility] Comment on above: Result Comment: Chol esterol level, Desirable <200 mg/dLBorderline high cholesterol 200-239 mg/dLHigh cholesterol >=240 mg/dLRecommendations of the NCEP Adult Treatment Panel for thefollowing risk-cutoff thresholds for the [place] Americanpulation. Performed By: #### L 500.4050, L503.7505, L500.4100 ####[facility] [address] [place], [address] Cholesterol in HDL [Mass/Vol] 39 mg/dL Low [facility] Comment on above: Result Comment: Gia onal Cholesterol Education Program (NCEP) guidelines:<40 mg/dL: Low HDL-cholesterol (major risk factor for CHD)>= 60 mg/dL: High HDL-cholesterol (negative risk factor forCHD)HDL-cholesterol is affected by a number of factors, e.g.smoking, exercise, hormones, sex and age. Performed By: #### L 500.4050, L503.7505, L500.4100 ####[facility] [address] [place], [address] Cholesterol in LDL [Mass/Vol] 63 mg/dL Normal [facility] Comment on above: Result Comment: Bord vxwxcy=471-611 mg/dL Higher Oahs=636 mg/dL or greater Performed By: #### L 500.4050, L503.7505, L500.4100 ####[facility] [address] [place], [address] Cholesterol in VLDL [Mass/Vol] 16 mg/dL Normal 5-40 [facility] Comment on above: Performed By: #### L 500.4050, L503.7505, L500.4100 ####[facility] [address] [place], [address] Triglyceride [Mass/Vol] 79 mg/dL Normal [facility] Comment on above: Result Comment: The drugs N-Acetylcysteine and Metamizole may falselydepress this assay.Normal range: <150 mg/dLBorderline High: 150-199 mg/dLHigh: 200-499 mg/dLVery High: >500 mg/dL Performed By: #### L 500.4050, L503.7505, L500.4100 ####[facility] [address] [place], [address] Natriuretic peptide.B prohor girish N-Terminal [Mass/volume] in Serum or PlasmaOrdered By: Nicola Madison on 03-05-2025 Natriuretic peptide.B prohormone N-Terminal [Mass/Vol] 4176 pg/mL High <1800 [facility] Comment on above: Heart Failure Unlike ly: < 300 pg/mLHeart Failure Likely< 50 Years: > 450 pg/mL50-75 Years: > 900 pg/mL>75 Years: > 1800 pg/mL No Panel InformationOrdered By: Nicola Madison on 03-05-2025 15 U/L <38 [facility] Phosphoruson 03-05-2025 Phosphate [Mass/Vol] 3.3 mg/dL Normal 2.7-4.5 [facility] Comment on above: Performed By: #### L 501.2300, L100.0100 ####[facility] [address] [place], [address] Screening total cholesterol/ high density lipoprotein (HDL) cholesterol ratioOrdered By: Nicola Madison on 03-05-2025 Cholesterol.total/Choles terol in HDL [Mass ratio] 3.04 {ratio} [facility] Serum globulin measurementOr dered By: Nicola Madison on 03-05-2025 Globulin (S) [Mass/Vol] 3.9 g/dL 2.2-4.2 [facility] Serum or plasma alanine ortiz otransferase (ALT) measurementOrdered By: Nicola Madison on 03-05-2025 ALT [Catalytic activity/Vol] 10 U/L <47 [facility] Serum or plasma albumin kingsley urement (mass/volume)Ordered By: Nicola Madison on 03-05-2025 Albumin [Mass/Vol] 3.4 g/dL 3.4-4.8 [facility] Serum or plasma albumin/glob ulin mass ratioOrdered By: Nicola Madison on 03-05-2025 Albumin/Globulin [Mass ratio] 0.9 {ratio} 0.9-2.4 [facility] Serum or plasma alkaline roosevelt sphatase measurementOrdered By: Nicola Madison on 03-05-2025 ALP [Catalytic activity/Vol] 75 U/L 40-129 [facility] Serum or plasma cholesterol in HDL measurement (mass/volume)Ordered By: Nicola Madison on 03-05-2025 Cholesterol in HDL [Mass/Vol] 39 mg/dL Low >40 [facility] Comment on above: National Cholesterol Education Program (NCEP) guidelines:<40 mg/dL: Low HDL-cholesterol (major risk factor for CHD)>= 60 mg/dL: High HDL-cholesterol (negative risk factor for CHD)HDL-cholesterol is affected by a number of factors, e.g. smoking, exercise, hormones, sex and age. Serum or plasma cholesterol measurement (mass/volume)Ordered By: Nicola Madison on 03-05-2025 Cholesterol [Mass/Vol] 117 mg/dL <201 [facility] Comment on above: Cholesterol level, D esirable <200 mg/dLBorderline high cholesterol 200-239 mg/dLHigh cholesterol >=240 mg/dLRecommendations of the NCEP Adult Treatment Panel for the following risk-cutoff thresholds for the [place] population. Total proteinOrdered By: Jacob Madison on 03-05-2025 Protein [Mass/Vol] 7.3 g/dL 5.9-8.4 [facility] Triglycerides measurementOrd ered By: Nicola Madison on 03-05-2025 Triglyceride [Mass/Vol] 79 mg/dL <[address] [facility] Comment on above: The drugs N-Acetylcy steine and Metamizole may falsely depress this assay. Normal range: <150 mg/dLBorderline High: 150-199 mg/dLHigh: 200-499 mg/dLVery High: >500 mg/dL Absolute lymphocyte countOrd ered By: Chris Ochoa on 03-04-2025 Lymphocytes Auto (Unsp spec) [#/Vol] 0.77 10*3/uL Low 0.83-4.51 [facility] Absolute neutrophil countOrd ered By: Chris Ochoa on 03-04-2025 Neutrophils (Bld) [#/Vol] 6.0 10*3/uL 2.0-7.7 [facility] Anion gap in Serum or Plasma Ordered By: Chris Ochoa on 03-04-2025 Anion gap [Moles/Vol] 8 mmol/L 5-15 [facility] Automated lymphocyte count a s percentage of total leukocytesOrdered By: Chris Ochoa on 03-04-2025 Lymphocytes/100 WBC Auto (Unsp spec) 10.1 % Low 19-41 [facility] BUN/creatinine ratioOrdered By: Chris Ochoa on 03-04-2025 Urea nitrogen/Creatinine [Mass ratio] 19.7 mg/mg 10- [facility] Basic Metabolic Profile (BMP )on 03-04-2025 BUN/CRE 19.7 RATIO Normal - [facility] Comment on above: Performed By: #### L 100.0100, L501.4021, L500.2500, L503.7505 ####[facility] [address] [place], [address] Calcium [Mass/Vol] 9.3 mg/dL Normal 7.6-11.0 [facility] Comment on above: Performed By: #### L 100.0100, L501.4021, L500.2500, L503.7505 ####[facility] [address] [place], [address] Chloride [Moles/Vol] 102 mmol/L Normal 98-108 [facility] Comment on above: Performed By: #### L 100.0100, L501.4021, L500.2500, L503.7505 ####[facility] [address] [place], [address] CO2 [Moles/Vol] 28.6 mmol/L Normal 21.0-32.0 [facility] Comment on above: Performed By: #### L 100.0100, L501.4021, L500.2500, L503.7505 ####[facility] [address] [place], [address] Creatinine [Mass/Vol] 1.86 mg/dL High 0.70-1.20 [facility] Comment on above: Performed By: #### L 100.0100, L501.4021, L500.2500, L503.7505 ####[facility] [address] [place], [address] ECRCL 28.58 ml/min Low 50-250 [facility] Comment on above: Performed By: #### L 100.0100, L501.4021, L500.2500, L503.7505 ####[facility] [address] [place], [address] GAP 8 Normal 5-15 [facility] Comment on above: Performed By: #### L 100.0100, L501.4021, L500.2500, L503.7505 ####[facility] [address] [place], [address] GFR/1.73 sq M.predicted among non-blacks MDRD (S/P/Bld) [Vol rate/Area] 36 mL/min/{1.73_m2} Low >60 [facility] Comment on above: Result Comment: mL/m in/1.73m2 CKD-EPI Creatinine Equation (2020) Performed By: #### L 100.0100, L501.4021, L500.2500, L503.7505 ####[facility] [address] [place], [address] Glucose [Mass/Vol] 124 mg/dL High 70-99 [facility] Comment on above: Performed By: #### L 100.0100, L501.4021, L500.2500, L503.7505 ####[facility] [address] [place], [address] Potassium [Moles/Vol] 5.2 mmol/L High 3.3-5.1 [facility] Comment on above: Performed By: #### L 100.0100, L501.4021, L500.2500, L503.7505 ####[facility] [address] [place], [address] Sodium [Moles/Vol] 138 mmol/L Normal 133-145 [facility] Comment on above: Performed By: #### L 100.0100, L501.4021, L500.2500, L503.7505 ####[facility] [address] [place], [address] Urea nitrogen [Mass/Vol] 37 mg/dL High 4-19 [facility] Comment on above: Performed By: #### L 100.0100, L501.4021, L500.2500, L503.7505 ####[facility] [address] [place], [address] Basophil percentageOrdered B y: Chris Ochoa on 03-04-2025 Basophils/100 WBC (Bld) 0.4 % 0-[address] [facility] Bedside Glucoseon 03-04-2025 FINGERSTICK GLU 80 mg/dL Normal 74-106 [facility] Comment on above: Result Comment: KODY STRONG OF PATIENT CARE PER NURSING PROTOCOL Performed By: #### L 501.080 ####[facility] [address] [place], [address] Bilirubin Test strip Ql (U)O rdered By: Nicola Madison on 03-04-2025 Bilirubin Ql (U) Negative Negative [facility] CBC W/Diff, Automatedon 02-17 Absolute Lymph 0.77 X10 3/uL Low 0.83-4.51 [facility] Comment on above: Performed By: #### L 100.0100, L501.4021, L500.2500, L503.7505 ####[facility] [address] [place], [address] Absolute Neut 6.0 X10 3/uL Normal 2.0-7.7 [facility] Comment on above: Performed By: #### L 100.0100, L501.4021, L500.2500, L503.7505 ####[facility] [address] [place], [address] Basophils/100 WBC (Bld) 0.4 % Normal 0-[address] [facility] Comment on above: Performed By: #### L 100.0100, L501.4021, L500.2500, L503.7505 ####[facility] [address] [place], [address] Eosinophils/100 WBC (Bld) 1.6 % Normal 0-5 [facility] Comment on above: Performed By: #### L 100.0100, L501.4021, L500.2500, L503.7505 ####[facility] [address] [place], [address] Erythrocyte distribution width (RBC) [Ratio] 16.5 % High 11.6-14.6 [facility] Comment on above: Performed By: #### L 100.0100, L501.4021, L500.2500, L503.7505 ####[facility] [address] [place], [address] Hematocrit (Bld) [Volume fraction] 33.4 % Low 40-54 [facility] Comment on above: Performed By: #### L 100.0100, L501.4021, L500.2500, L503.7505 ####[facility] [address] [place], [address] Hemoglobin (Bld) [Mass/Vol] 10.1 g/dL Low 13.0-16.5 [facility] Comment on above: Performed By: #### L 100.0100, L501.4021, L500.2500, L503.7505 ####[facility] [address] [place], [address] IG% 0.700 Normal 0.0-0.9 [facility] Comment on above: Result Comment: IG% - Immature Granulocytes (promyelocytes, myelocytes andmetamyelocytes) > 1% indicates that a LEFT SHIFT is Present. Performed By: #### L 100.0100, L501.4021, L500.2500, L503.7505 ####[facility] [address] [place], [address] Lymphocytes/100 WBC (Bld) 10.1 % Low 19-41 [facility] Comment on above: Performed By: #### L 100.0100, L501.4021, L500.2500, L503.7505 ####[facility] [address] [place], [address] MCH (RBC) [Entitic mass] 27.0 pg Normal 27.0-32.0 [facility] Comment on above: Performed By: #### L 100.0100, L501.4021, L500.2500, L503.7505 ####[facility] [address] [place], [address] MCHC (RBC) [Mass/Vol] 30.2 g/dL Low 32-36 [facility] Comment on above: Performed By: #### L 100.0100, L501.4021, L500.2500, L503.7505 ####[facility] [address] [place], [address] MCV (RBC) [Entitic vol] 89.3 fL Normal 80-94 [facility] Comment on above: Performed By: #### L 100.0100, L501.4021, L500.2500, L503.7505 ####[facility] [address] [place], [address] Monocytes/100 WBC (Bld) 9.1 % Normal 0-10 [facility] Comment on above: Performed By: #### L 100.0100, L501.4021, L500.2500, L503.7505 ####[facility] [address] [place], [address] Neutrophils/100 WBC (Bld) 78.1 % High 47-70 [facility] Comment on above: Performed By: #### L 100.0100, L501.4021, L500.2500, L503.7505 ####[facility] [address] [place], [address] Nucleated RBC (Bld) [#/Vol] 0 10*3/uL Normal 0-5 [facility] Comment on above: Performed By: #### L 100.0100, L501.4021, L500.2500, L503.7505 ####[facility] [address] [place], [address] Platelet mean volume (Bld) [Entitic vol] 10.2 fL Normal 6.2-12.0 [facility] Comment on above: Performed By: #### L 100.0100, L501.4021, L500.2500, L503.7505 ####[facility] [address] [place], [address] Platelets (Bld) [#/Vol] 189 10*3/uL Normal 150-450 [facility] Comment on above: Performed By: #### L 100.0100, L501.4021, L500.2500, L503.7505 ####[facility] [address] [place], [address] RBC (Bld) [#/Vol] 3.74 10*6/uL Low 4.6-6.2 [facility] Comment on above: Performed By: #### L 100.0100, L501.4021, L500.2500, L503.7505 ####[facility] [address] [place], [address] RDW SD 54.2 fl High 35.1-43.9 [facility] Comment on above: Performed By: #### L 100.0100, L501.4021, L500.2500, L503.7505 ####[facility] [address] [place], [address] WBC (Bld) [#/Vol] 7.6 10*3/uL Normal 4.4-11.0 [facility] Comment on above: Performed By: #### L 100.0100, L501.4021, L500.2500, L503.7505 ####[facility] [address] [place], [address] Carbon dioxide, total [Moles /volume] in Central venous bloodOrdered By: Chris Ochoa on 03-04-2025 CO2 [Moles/Vol] 28.6 mmol/L 21.0-32.0 [facility] Chest PA and Lateralon 03-04 Chest PA and Lateral Normal [facility] Chloride assayOrdered By: Chino Ochoa on 03-04-2025 Chloride [Moles/Vol] 102 mmol/L 98-108 [facility] Echo Complete W/ Contraston 03-04-2025 Echo Complete W/ Contrast Normal [facility] Emergency Department Summary on 03-04-2025 Emergency Department Summary Normal [facility] Eosinophil percentageOrdered By: Chris Ochoa on 03-04-2025 Eosinophils/100 WBC (Bld) 1.6 % 0-5 [facility] Erythrocyte distribution wid th ratioOrdered By: Chris Ochoa on 03-04-2025 Erythrocyte distribution width (RBC) [Ratio] 16.5 % High 11.6-14.6 [facility] Erythrocyte distribution wid th standard deviationOrdered By: Chris Ochoa on 03-04-2025 Erythrocyte distribution width (RBC) [Ratio] 54.2 fl High 35.1-43.9 [facility] Glomerular filtration rate ( GFR) estimation/1.73 sq m using serum, plasma, or whole bOrdered By: Chris Ochoa on 03-04-2025 GFR/1.73 sq M.predicted among non-blacks MDRD (S/P/Bld) [Vol rate/Area] 36 mL/min/{1.73_m2} Low >60 [facility] Comment on above: mL/min/1.73m2 CKD-EP I Creatinine Equation (2020) H AND P Exam - Hospitaliston 03-04-2025 H&P Exam - Hospitalist Normal [facility] Hematocrit Auto (Bld) [Volum e fraction]Ordered By: Chris Ochoa on 03-04-2025 Hematocrit (Bld) [Volume fraction] 33.4 % Low 40-54 [facility] Hemoglobin A1con 03-04-2025 HbA1c (Bld) [Mass fraction] 6.3 % High <=5.6 [facility] Comment on above: Result Comment: Norm al < 5.7 % Prediabetic 5.7 - 6.4 % Diabetic >or= 6.5 % Please note range changes. Performed By: #### L 501.520, L501.9973, L501.9519 ####[facility] [address] [place], [address] Hemoglobin A1c percentageOrd ered By: Nicola Madison on 03-04-2025 HbA1c (Bld) [Mass fraction] 6.3 % High <5.7 [facility] Comment on above: Normal < 5.7 % Predi abetic 5.7 - 6.4 % Diabetic >or= 6.5 % Please note range changes. Hemoglobin measurementOrdere d By: Chris Ochoa on 03-04-2025 Hemoglobin (Bld) [Mass/Vol] 10.1 g/dL Low 13.0-16.5 [facility] Immature granulocytes/100 WB C Auto (Bld)Ordered By: Chris Ocoha on 03-04-2025 Immature granulocytes/100 WBC (Bld) 0.700 % 0.0-0.9 [facility] Comment on above: IG% - Immature Granu locytes (promyelocytes, myelocytes and metamyelocytes) > 1% indicates that a LEFT SHIFT is Present. Ketones Test strip Ql (U)Ord ered By: Nicola Madison on 03-04-2025 Ketones Ql (U) Negative Negative [facility] L499.0042on 03-04-2025 Trop T High Sen 45 ng/L High <=22 [facility] Comment on above: Performed By: #### L 499.0042 ####[facility] [address] [place], [address] L499.0043on 03-04-2025 Trop T High Sen 42 ng/L High <=22 [facility] Comment on above: Performed By: #### L 499.0043 ####[facility] [address] [place], [address] L501.4021on 03-04-2025 Trop T High Sen 44 ng/L High <=22 [facility] Comment on above: Performed By: #### L 100.0100, L501.4021, L500.2500, L503.7505 ####[facility] [address] [place], [address] L503.7505on 03-04-2025 Natriuretic peptide B (Bld) [Mass/Vol] 3316 pg/mL High <=1800 [facility] Comment on above: Result Comment: Hear t Failure Unlikely: < 300 pg/mLHeart Failure Likely< 50 Years: > 450 pg/mL50-75 Years: > 900 pg/mL>75 Years: > 1800 pg/mL Performed By: #### L 100.0100, L501.4021, L500.2500, L503.7505 ####[facility] [address] [facility] [place], [place], [address] MCV (mean corpuscular volume ) determinationOrdered By: Chris Ochoa on 03-04-2025 MCV (RBC) [Entitic vol] 89.3 fL 80-[address] [facility] Magnesiumon 03-04-2025 Magnesium [Mass/Vol] 2.0 mg/dL Normal 1.5-2.2 [facility] Comment on above: Performed By: #### L 501.5200, L501.9985, L501.9546 ####[facility] [address] [facility] [place], [place], [id number] Mean corpuscular hemoglobin (MCH) determinationOrdered By: Chris Ochoa on 03-04-2025 MCH (RBC) [Entitic mass] 27.0 pg 27.0-32.0 [facility] Mean corpuscular hemoglobin concentration (MCHC) determinationOrdered By: Chris Ochoa on 03-04-2025 MCHC (RBC) [Mass/Vol] 30.2 g/dL Low 32-36 [facility] Mean platelet volume determi nationOrdered By: Chris Ochoa on 03-04-2025 Platelet mean volume (Bld) [Entitic vol] 10.2 fL 6.2-12.0 [facility] Microscopic analysis of urin e for red blood cells (RBC)Ordered By: Nicola Madison on 03-04-2025 Microscopic analysis of urine for red blood cells (RBC) 5-10 SEEN /hpf 0-5 [facility] Monocyte percentageOrdered B y: Chris Ochoa on 03-04-2025 Monocytes/100 WBC (Bld) 9.1 % 0-[address] [facility] Mucus LM Ql (Urine sed)Order ed By: Nicola Madison on 03-04-2025 Mucus Ql (Urine sed) 0 SEEN /hpf [facility] Natriuretic peptide.B prohor girish N-Terminal [Mass/volume] in Serum or PlasmaOrdered By: Chris Ochoa on 03-04-2025 Natriuretic peptide.B prohormone N-Terminal [Mass/Vol] 3316 pg/mL High <1800 [facility] Comment on above: Heart Failure Unlike ly: < 300 pg/mLHeart Failure Likely< 50 Years: > 450 pg/mL50-75 Years: > 900 pg/mL>75 Years: > 1800 pg/mL Neutrophil percentageOrdered By: Chris Ochoa on 03-04-2025 Neutrophils/100 WBC (Bld) 78.1 % High 47-70 [facility] Nitrite Test strip Ql (U)Ord ered By: Nicola Madison on 03-04-2025 Nitrite Ql (U) Positive High Negative [facility] Nucleated red blood cell per centageOrdered By: Chris Ochoa on 03-04-2025 Nucleated RBC/100 WBC (Bld) [Ratio] 0 % 0-5 [facility] Platelet countOrdered By: Chino Ochoa on 03-04-2025 Platelets (Bld) [#/Vol] 189 10*3/uL 150-450 [facility] Potassium measurement (mass/ volume)Ordered By: Chris Ochoa on 03-04-2025 Potassium (Unsp spec) [Mass/Vol] 5.2 mmol/L High 3.3-5.1 [facility] Protein Test strip Ql (U)Ord ered By: Nicola Madison on 03-04-2025 Protein Ql (U) 100 mg/dl High Negative [facility] RBC Auto (Bld) [#/Vol]Ordere d By: Chris Ochoa on 03-04-2025 RBC (Bld) [#/Vol] 3.74 10*6/uL Low 4.6-6.2 [facility] Serum creatinine measurement (mass/volume)Ordered By: Chris Ochoa on 03-04-2025 Creatinine [Mass/Vol] 1.86 mg/dL High 0.70-1.20 [facility] Serum glucose measurement (m ass/volume)Ordered By: Chris Ochoa on 03-04-2025 Glucose [Mass/Vol] 124 mg/dL High 70-99 [facility] Serum or plasma calcium kingsley urement (mass/volume)Ordered By: Chris Ochoa on 03-04-2025 Calcium [Mass/Vol] 9.3 mg/dL 7.6-11.0 [facility] Serum or plasma urea nitroge n measurement (mass/volume)Ordered By: Chris Ochoa on 03-04-2025 Urea nitrogen [Mass/Vol] 37 mg/dL High 4-19 [facility] Sodium levelOrdered By: Chris Ochoa on 03-04-2025 Sodium [Moles/Vol] 138 mmol/L 133-145 [facility] Squamous epithelial cells de tection in urine sediment by light microscopyOrdered By: Nicola Madison on 03-04-2025 Epithelial cells.squamous LM Ql (Urine sed) 0 SEEN /hpf 0-5 [facility] TSH DL <= 0.005 mIU/L QnOrde red By: Nicola Madison on 03-04-2025 TSH Qn 3.780 uIU/mL 0.300-4.20 0 [facility] Thyroid Stim Hormone (TSH)on 03-04-2025 TSH 3.780 uIU/mL Normal 0.300-4.20 0 [facility] Comment on above: Performed By: #### L 501.5200, L501.9985, L501.9520 ####[facility] [address] [place], [address] Troponin T.cardiac [Mass/vol ume] in Serum or Plasma by High sensitivity methodOrdered By: Chris Ochoa on 03-04-2025 Troponin T.cardiac High sensitivity method [Mass/Vol] 42 ng/L High <22 [facility] Troponin T.cardiac High sensitivity method [Mass/Vol] 45 ng/L High <22 [facility] Troponin T.cardiac High sensitivity method [Mass/Vol] 44 ng/L High <22 [facility] Urinalysis, Completeon 03-04 RBC 5-10 SEEN Normal 0-5 [facility] Comment on above: Order Comment: CLEAN CATCH Performed By: #### L 400.0001 ####[facility] [address] [place], [address] BACTERIA 2+ /hpf Normal None Seen [facility] Comment on above: Order Comment: CLEAN CATCH Performed By: #### L 400.0001 ####[facility] [address] [place], [place], [id number] WBC >100 SEEN Normal 0-5 [facility] Comment on above: Order Comment: CLEAN CATCH Performed By: #### L 400.0001 ####[facility] [address] [place], [address] EPI,SQUAMOUS 0 SEEN Normal 0-5 [facility] Comment on above: Order Comment: CLEAN CATCH Performed By: #### L 400.0001 ####[facility] [address] [place], [place], [id number] Mucus Ql (Urine sed) 0 SEEN Normal [facility] Comment on above: Order Comment: CLEAN CATCH Performed By: #### L 400.0001 ####[facility] [address] [place], [place], [id number] Urine clarityOrdered By: Jacob Madison on 03-04-2025 Clarity (U) Cloudy Clear [facility] Urine color determinationOrd ered By: Nicola Madison on 03-04-2025 Color (U) Yellow Yellow [facility] Urine glucose detectionOrder ed By: Nicola Madison on 03-04-2025 Glucose Ql (U) Normal mg/dl Normal [facility] Urine leukocyte esterase det ection by dipstickOrdered By: Nicola Madison on 03-04-2025 Leukocyte esterase Test strip Ql (U) 500 /ul High Negative [facility] Urine pHOrdered By: Nicola stack on 03-04-2025 pH (U) 6.5 [pH] 5.0 - 8.0 [facility] Urine sediment bacteria coun t by microscopy (number/high power field)Ordered By: Nicola Madison on 03-04-2025 Bacteria LM.HPF (Urine sed) [#/Area] 2 /[HPF] None Seen [facility] Urine specific gravity measu rementOrdered By: Nicola Madison on 03-04-2025 Specific gravity (U) [Rel density] 1.010 1.002-1.03 0 [facility] Urine urobilinogen measureme ntOrdered By: Nicola Madison on 03-04-2025 Urobilinogen Ql (U) Normal mg/dl Normal [facility] White blood cell (WBC) count Ordered By: Chris Ochoa on 03-04-2025 WBC (Bld) [#/Vol] 7.6 10*3/uL 4.4-11.0 [facility] White blood cell countOrdere d By: Nicola Madison on 03-04-2025 White blood cell count >100 SEEN /hpf 0-5 [facility] Absolute lymphocyte countOrd ered By: Russ Zamora on 11-06-2024 Lymphocytes Auto (Unsp spec) [#/Vol] 0.82 10*3/uL Low 0.83-4.51 [facility] Absolute neutrophil countOrd ered By: Russ Zamora on 11-06-2024 Neutrophils (Bld) [#/Vol] 8.1 10*3/uL High 2.0-7.7 [facility] Anion gap in Serum or Plasma Ordered By: Russ Zamora on 11-06-2024 Anion gap [Moles/Vol] 10 mmol/L 5-15 [facility] Automated lymphocyte count a s percentage of total leukocytesOrdered By: Russ Zamora on 11-06-2024 Lymphocytes/100 WBC Auto (Unsp spec) 8.1 % Low 19-41 [facility] BUN/creatinine ratioOrdered By: Russ Zamora on 11-06-2024 Urea nitrogen/Creatinine [Mass ratio] 19.3 mg/mg 10-20 [facility] Basophil percentageOrdered B y: Russ Zamora on 11-06-2024 Basophils/100 WBC (Bld) 0.3 % 0-[address] [facility] Bilirubin, totalOrdered By: Russ Zamora on 11-06-2024 Bilirubin [Mass/Vol] 0.46 mg/dL 0.00-1.30 [facility] CBC W/Diff, Automatedon 10-19 Absolute Lymph 0.82 X10 3/uL Low 0.83-4.51 [facility] Comment on above: Performed By: #### L 500.4050, L504.2610, L100.0100 ####[facility] [address] [place], [address] Absolute Neut 8.1 X10 3/uL High 2.0-7.7 [facility] Comment on above: Performed By: #### L 500.4050, L504.2610, L100.0100 ####[facility] [address] [place], [address] Basophils/100 WBC (Bld) 0.3 % Normal 0-[address] [facility] Comment on above: Performed By: #### L 500.4050, L504.2610, L100.0100 ####[facility] [address] [place], [address] Eosinophils/100 WBC (Bld) 1.7 % Normal 0-5 [facility] Comment on above: Performed By: #### L 500.4050, L504.2610, L100.0100 ####[facility] [address] [place], [address] Erythrocyte distribution width (RBC) [Ratio] 16.8 % High 11.6-14.6 [facility] Comment on above: Performed By: #### L 500.4050, L504.2610, L100.0100 ####[facility] [address] [place], [address] Hematocrit (Bld) [Volume fraction] 34.2 % Low 40-54 [facility] Comment on above: Performed By: #### L 500.4050, L504.2610, L100.0100 ####[facility] [address] [place], [address] Hemoglobin (Bld) [Mass/Vol] 10.7 g/dL Low 13.0-16.5 [facility] Comment on above: Performed By: #### L 500.4050, L504.2610, L100.0100 ####[facility] [address] [place], [address] IG% 0.500 Normal 0.0-0.9 [facility] Comment on above: Result Comment: IG% - Immature Granulocytes (promyelocytes, myelocytes andmetamyelocytes) > 1% indicates that a LEFT SHIFT is Present. Performed By: #### L 500.4050, L504.2610, L100.0100 ####[facility] [address] [place], [address] Lymphocytes/100 WBC (Bld) 8.1 % Low 19-41 [facility] Comment on above: Performed By: #### L 500.4050, L504.2610, L100.0100 ####[facility] [address] [place], [address] MCH (RBC) [Entitic mass] 27.4 pg Normal 27.0-32.0 [facility] Comment on above: Performed By: #### L 500.4050, L504.2610, L100.0100 ####[facility] [address] [place], [address] MCHC (RBC) [Mass/Vol] 31.3 g/dL Low 32-36 [facility] Comment on above: Performed By: #### L 500.4050, L504.2610, L100.0100 ####[facility] [address] [place], [address] MCV (RBC) [Entitic vol] 87.5 fL Normal 80-[address] [facility] Comment on above: Performed By: #### L 500.4050, L504.2610, L100.0100 ####[facility] [address] [place], [address] Monocytes/100 WBC (Bld) 8.8 % Normal 0-[address] [facility] Comment on above: Performed By: #### L 500.4050, L504.2610, L100.0100 ####[facility] [address] [place], [address] Neutrophils/100 WBC (Bld) 80.6 % High 47-70 [facility] Comment on above: Performed By: #### L 500.4050, L504.2610, L100.0100 ####[facility] [address] [place], [address] Nucleated RBC (Bld) [#/Vol] 0 10*3/uL Normal 0-5 [facility] Comment on above: Performed By: #### L 500.4050, L504.2610, L100.0100 ####[facility] [address] [place], [address] Platelet mean volume (Bld) [Entitic vol] 10.4 fL Normal 6.2-12.0 [facility] Comment on above: Performed By: #### L 500.4050, L504.2610, L100.0100 ####[facility] [address] [place], [address] Platelets (Bld) [#/Vol] 212 10*3/uL Normal 150-450 [facility] Comment on above: Performed By: #### L 500.4050, L504.2610, L100.0100 ####[facility] [address] [place], [address] RBC (Bld) [#/Vol] 3.91 10*6/uL Low 4.6-6.2 [facility] Comment on above: Performed By: #### L 500.4050, L504.2610, L100.0100 ####[facility] [address] [place], [address] RDW SD 53.5 fl High 35.1-43.9 [facility] Comment on above: Performed By: #### L 500.4050, L504.2610, L100.0100 ####[facility] [address] [place], [address] WBC (Bld) [#/Vol] 10.1 10*3/uL Normal 4.4-11.0 [facility] Comment on above: Performed By: #### L 500.4050, L504.2610, L100.0100 ####[facility] [address] [place], [address] Carbon dioxide, total [Moles /volume] in Central venous bloodOrdered By: Russ Zamora on 11-06-2024 CO2 [Moles/Vol] 25.2 mmol/L 21.0-32.0 [facility] Chloride assayOrdered By: Flores Zamora on 11-06-2024 Chloride [Moles/Vol] 105 mmol/L 98-108 [facility] Comprehensive Metabolic Prof ilon 11-06-2024 Albumin [Mass/Vol] 3.8 g/dL Normal 3.4-4.8 [facility] Comment on above: Performed By: #### L 500.4050, L504.2610, L100.0100 ####[facility] [address] [place], [address] Albumin/Globulin [Mass ratio] 0.9 {ratio} Normal 0.9-2.4 [facility] Comment on above: Performed By: #### L 500.4050, L504.2610, L100.0100 ####[facility] [address] [place], [address] ALK PHOS 72 U/L Normal 40-129 [facility] Comment on above: Performed By: #### L 500.4050, L504.2610, L100.0100 ####[facility] [address] [place], [address] ALT [Catalytic activity/Vol] 10 U/L Normal <=46 [facility] Comment on above: Performed By: #### L 500.4050, L504.2610, L100.0100 ####[facility] [address] [place], [address] AST [Catalytic activity/Vol] 16 U/L Normal <=37 [facility] Comment on above: Performed By: #### L 500.4050, L504.2610, L100.0100 ####[facility] [address] [place], [address] Bilirubin [Mass/Vol] 0.46 mg/dL Normal 0.00-1.30 [facility] Comment on above: Performed By: #### L 500.4050, L504.2610, L100.0100 ####[facility] [address] [place], [address] BUN/CRE 19.3 RATIO Normal 10-20 [facility] Comment on above: Performed By: #### L 500.4050, L504.2610, L100.0100 ####[facility] [address] [place], [address] Calcium [Mass/Vol] 9.1 mg/dL Normal 7.6-11.0 [facility] Comment on above: Performed By: #### L 500.4050, L504.2610, L100.0100 ####[facility] [address] [place], [address] Chloride [Moles/Vol] 105 mmol/L Normal 98-108 [facility] Comment on above: Performed By: #### L 500.4050, L504.2610, L100.0100 ####[facility] [address] [place], [address] CO2 [Moles/Vol] 25.2 mmol/L Normal 21.0-32.0 [facility] Comment on above: Performed By: #### L 500.4050, L504.2610, L100.0100 ####[facility] [address] [place], [address] Creatinine [Mass/Vol] 1.87 mg/dL High 0.70-1.20 [facility] Comment on above: Performed By: #### L 500.4050, L504.2610, L100.0100 ####[facility] [address] [place], [address] ECRCL 32.00 ml/min Low 50-250 [facility] Comment on above: Performed By: #### L 500.4050, L504.2610, L100.0100 ####[facility] [address] [place], [address] GAP 10 Normal 5-15 [facility] Comment on above: Performed By: #### L 500.4050, L504.2610, L100.0100 ####[facility] [address] [place], [address] GFR/1.73 sq M.predicted among non-blacks MDRD (S/P/Bld) [Vol rate/Area] 36 mL/min/{1.73_m2} Low >60 [facility] Comment on above: Result Comment: mL/m in/1.73m2 CKD-EPI Creatinine Equation (2020) Performed By: #### L 500.4050, L504.2610, L100.0100 ####[facility] [address] [place], [address] Globulin (S) [Mass/Vol] 4.1 g/dL Normal 2.2-4.2 [facility] Comment on above: Performed By: #### L 500.4050, L504.2610, L100.0100 ####[facility] [address] [place], [address] Glucose [Mass/Vol] 132 mg/dL High 70-99 [facility] Comment on above: Performed By: #### L 500.4050, L504.2610, L100.0100 ####[facility] [address] [place], [address] Potassium [Moles/Vol] 4.8 mmol/L Normal 3.3-5.1 [facility] Comment on above: Performed By: #### L 500.4050, L504.2610, L100.0100 ####[facility] [address] [place], [address] Sodium [Moles/Vol] 140 mmol/L Normal 133-145 [facility] Comment on above: Performed By: #### L 500.4050, L504.2610, L100.0100 ####[facility] [address] [place], [address] T PROT 7.9 g/dL Normal 5.9-8.4 [facility] Comment on above: Performed By: #### L 500.4050, L504.2610, L100.0100 ####[facility] [address] [place], [address] Urea nitrogen [Mass/Vol] 36 mg/dL High 4-19 [facility] Comment on above: Performed By: #### L 500.4050, L504.2610, L100.0100 ####[facility] [address] [place], [address] Eosinophil percentageOrdered By: Russ Zamora on 11-06-2024 Eosinophils/100 WBC (Bld) 1.7 % 0-5 [facility] Erythrocyte distribution wid th ratioOrdered By: Russ Zamora on 11-06-2024 Erythrocyte distribution width (RBC) [Ratio] 16.8 % High 11.6-14.6 [facility] Erythrocyte distribution wid th standard deviationOrdered By: Russ Zamora on 11-06-2024 Erythrocyte distribution width (RBC) [Entitic vol] 53.5 fL High 35.1-43.9 [facility] Erythrocyte distribution width (RBC) [Ratio] 53.5 fl High 35.1-43.9 [facility] Estimation of creatinine rowdy aranceOrdered By: Russ Zamora on 11-06-2024 Estimated Creatinine Clearance Calc 32.00 ml/min Low 50-250 [facility] GFR/1.73 sq M.predicted kaylyn g non-blacks MDRD (S/P/Bld) [Vol rate/Area]Ordered By: Russ Zamora on 11-06-2024 Estimated GFR (MDRD) Non-Af Amer 36 Low >60 [facility] Comment on above: mL/min/1.73m2 CKD-EP I Creatinine Equation (2020) Glomerular filtration rate ( GFR) estimation/1.73 sq m using serum, plasma, or whole bOrdered By: Russ Zamora on 11-06-2024 GFR/1.73 sq M.predicted among non-blacks MDRD (S/P/Bld) [Vol rate/Area] 36 mL/min/{1.73_m2} Low >60 [facility] Comment on above: mL/min/1.73m2 CKD-EP I Creatinine Equation (2020) Hematocrit Auto (Bld) [Volum e fraction]Ordered By: Russ Zamora on 11-06-2024 Hematocrit (Bld) [Volume fraction] 34.2 % Low 40-54 [facility] Hemoglobin measurementOrdere d By: Russ Zamora on 11-06-2024 Hemoglobin (Bld) [Mass/Vol] 10.7 g/dL Low 13.0-16.5 [facility] Immature granulocytes/100 WB C Auto (Bld)Ordered By: Russ Zamora on 11-06-2024 Immature granulocytes/100 WBC (Bld) 0.500 % 0.0-0.9 [facility] Comment on above: IG% - Immature Granu locytes (promyelocytes, myelocytes and metamyelocytes) > 1% indicates that a LEFT SHIFT is Present. LDHon 11-06-2024 LDH 135 U/L Normal 87-241 [facility] Comment on above: Order Comment: 1 Performed By: #### L 500.4050, L504.2610, L100.0100 ####[facility] [address] [place], [address] Laboratory - Chemistry and C hemistry - challengeOrdered By: Russ Zamora on 11-06-2024 AST [Catalytic activity/Vol] 16 U/L <38 [facility] Lactate dehydrogenase (LDH) measurementOrdered By: Russ Zamora on 11-06-2024 LDH [Catalytic activity/Vol] 135 U/L 87-241 [facility] Lymphocytes Auto (Unsp spec) [#/Vol]Ordered By: Russ Zamora on 11-06-2024 Lymphocytes (Bld) [#/Vol] 0.82 10*3/uL Low 0.83-4.51 [facility] Lymphocytes/100 WBC Auto (Un sp spec)Ordered By: Russ Zamora on 11-06-2024 Lymphocytes/100 WBC (Bld) 8.1 % Low 19-41 [facility] MCV (mean corpuscular volume ) determinationOrdered By: Russ Zamora on 11-06-2024 MCV (RBC) [Entitic vol] 87.5 fL 80-94 [facility] Mean corpuscular hemoglobin (MCH) determinationOrdered By: Russ Zamora on 11-06-2024 MCH (RBC) [Entitic mass] 27.4 pg 27.0-32.0 [facility] Mean corpuscular hemoglobin concentration (MCHC) determinationOrdered By: Russ Zamora on 11-06-2024 MCHC (RBC) [Mass/Vol] 31.3 g/dL Low 32-36 [facility] Mean platelet volume determi nationOrdered By: Russ Zamora on 11-06-2024 Platelet mean volume (Bld) [Entitic vol] 10.4 fL 6.2-12.0 [facility] Monocyte percentageOrdered B y: Russ Zamora on 11-06-2024 Monocytes/100 WBC (Bld) 8.8 % 0-[address] [facility] Neutrophil percentageOrdered By: Russ Zamora on 11-06-2024 Neutrophils/100 WBC (Bld) 80.6 % High 47-70 [facility] Nucleated red blood cell per centageOrdered By: Russ Zamora on 11-06-2024 Nucleated RBC/100 WBC (Bld) [Ratio] 0 % 0-5 [facility] Oncology Visit Reporton 10-19 0 Oncology Visit Report Normal [facility] Platelet countOrdered By: Flores Zamora on 11-06-2024 Platelets (Bld) [#/Vol] 212 10*3/uL 150-450 [facility] Potassium (Unsp spec) [Mass/ Vol]Ordered By: Russ Zamora on 11-06-2024 Potassium [Moles/Vol] 4.8 mmol/L 3.3-5.1 [facility] Potassium measurement (mass/ volume)Ordered By: Rsus Zamora on 11-06-2024 Potassium (Unsp spec) [Mass/Vol] 4.8 mmol/L 3.3-5.1 [facility] RBC Auto (Bld) [#/Vol]Ordere d By: Russ Zamora on 11-06-2024 RBC (Bld) [#/Vol] 3.91 10*6/uL Low 4.6-6.2 [facility] Serum creatinine measurement (mass/volume)Ordered By: Russ Zamora on 11-06-2024 Creatinine [Mass/Vol] 1.87 mg/dL High 0.70-1.20 [facility] Serum globulin measurementOr dered By: Russ Zamora on 11-06-2024 Globulin (S) [Mass/Vol] 4.1 g/dL 2.2-4.2 [facility] Serum glucose measurement (m ass/volume)Ordered By: Russ Zamora on 11-06-2024 Glucose [Mass/Vol] 132 mg/dL High 70-99 [facility] Serum or plasma alanine ortiz otransferase (ALT) measurementOrdered By: Russ Zamora on 11-06-2024 ALT [Catalytic activity/Vol] 10 U/L <47 [facility] Serum or plasma albumin kingsley urement (mass/volume)Ordered By: Russ Zamora on 11-06-2024 Albumin [Mass/Vol] 3.8 g/dL 3.4-4.8 [facility] Serum or plasma albumin/glob ulin mass ratioOrdered By: Russ Zamora on 11-06-2024 Albumin/Globulin [Mass ratio] 0.9 {ratio} 0.9-2.4 [facility] Serum or plasma alkaline roosevelt sphatase measurementOrdered By: Russ Zamora on 11-06-2024 ALP [Catalytic activity/Vol] 72 U/L 40-129 [facility] Serum or plasma calcium kingsley urement (mass/volume)Ordered By: Russ Zamora on 11-06-2024 Calcium [Mass/Vol] 9.1 mg/dL 7.6-11.0 [facility] Serum or plasma urea nitroge n measurement (mass/volume)Ordered By: Russ Zamora on 11-06-2024 Urea nitrogen [Mass/Vol] 36 mg/dL High 4-19 [facility] Sodium levelOrdered By: Esau Zamora on 11-06-2024 Sodium [Moles/Vol] 140 mmol/L 133-145 [facility] Total proteinOrdered By: Frantz Zamora on 11-06-2024 Protein [Mass/Vol] 7.9 g/dL 5.9-8.4 [facility] White blood cell (WBC) count Ordered By: Russ Zamora on 11-06-2024 WBC (Bld) [#/Vol] 10.1 10*3/uL 4.4-11.0 [facility] CREATININE FINGERSTICKon Creatinine [Mass/Vol] 1.5 mg/dL High 0.70-1.30 [facility] Comment on above: Performed By: #### L 9100.0200 ####[facility] [address] [place], [place], [id number] GFR/1.73 sq M.predicted among non-blacks MDRD (S/P/Bld) [Vol rate/Area] 48.0000 mL/min/{1.73_m2} Low >60 [facility] Comment on above: Performed By: #### L 9100.0200 ####[facility] [address] [place], [place], [id number] CT Chest AND Abd W/ Contrast on 10-30-2024 CT Chest AND Abd W/ Contrast Normal [facility] Creatinine measurement at dsideOrdered By: Russ Zamora on 10-30-2024 Creatinine [Mass/Vol] 1.5 mg/dL High 0.70-1.30 [facility] EGFROrdered By: Russ Zamora on 10-30-2024 GFR/1.73 sq M.predicted among non-blacks MDRD (S/P/Bld) [Vol rate/Area] 48.0000 mL/min/{1.73_m2} Low >60 [facility] Pulmonary Visit Reporton Pulmonary Visit Report Normal [facility] Hemoglobin A1con 10-21-2024 HbA1c (Bld) [Mass fraction] 6.6 % Normal <=5.6 [facility] Comment on above: Performed By: #### L 501.9985 ####[facility] [address] [place], [address] Hemoglobin A1c percentageOrd ered By: Tonio Fajardo on 10-20-2024 HbA1c (Bld) [Mass fraction] 6.6 % >5.7 [facility] 6 Minute Walk Teston 025 6 Minute Walk Test Normal [facility] Absolute neutrophil countOrd ered By: Leslie Arriaga on 09-25-2024 Neutrophils (Bld) [#/Vol] 6.7 10*3/uL 2.0-7.7 [facility] BNP (brain natriuretic pepti de measurement)Ordered By: Leslie Arriaga on 09-25-2024 Natriuretic peptide B (Bld) [Mass/Vol] 183.7 pg/mL High 0-100 [facility] BNP,B-Type NATRIURETIC PEPTI Adrienne 09-25-2024 Natriuretic peptide B (Bld) [Mass/Vol] 183.7 pg/mL High 0-100 [facility] Comment on above: Performed By: #### L 500.2500, L100.0100, L503.6620 ####[facility] [address] [place], [address] Basic Metabolic Profile (BMP )on 09-25-2024 BUN/CRE 15.4 RATIO Normal 10-20 [facility] Comment on above: Performed By: #### L 500.2500, L100.0100, L503.6620 ####[facility] [address] [place], [address] CA,Total 9.1 mg/dL Normal 8.5-10.1 [facility] Comment on above: Performed By: #### L 500.2500, L100.0100, L503.6620 ####[facility] [address] [place], [address] Chloride [Moles/Vol] 105 mmol/L Normal 98-107 [facility] Comment on above: Performed By: #### L 500.2500, L100.0100, L503.6620 ####[facility] [address] [place], [address] CO2 [Moles/Vol] 28.0 mmol/L Normal 21.0-32.0 [facility] Comment on above: Performed By: #### L 500.2500, L100.0100, L503.6620 ####[facility] [address] [place], [address] Creatinine [Mass/Vol] 2.21 mg/dL High 0.70-1.30 [facility] Comment on above: Result Comment: The validity of the calculated GFR GFRAA in patients over70 years has not been determined. Clinical correlation isessential. Performed By: #### L 500.2500, L100.0100, L503.6620 ####[facility] [address] [place], [address] EST GFR - AA 37 mL/min Low >60 [facility] Comment on above: Result Comment: Afri can [place] GFR Calc Performed By: #### L 500.2500, L100.0100, L503.6620 ####[facility] [address] [place], [address] GAP 5 Normal 5-15 [facility] Comment on above: Performed By: #### L 500.2500, L100.0100, L503.6620 ####[facility] [address] [place], [address] GFR/1.73 sq M.predicted among non-blacks MDRD (S/P/Bld) [Vol rate/Area] 31 mL/min/{1.73_m2} Low >60 [facility] Comment on above: Result Comment: Non- GFR Calc Performed By: #### L 500.2500, L100.0100, L503.6620 ####[facility] [address] [place], [address] Glucose [Mass/Vol] 127 mg/dL High 74-106 [facility] Comment on above: Result Comment: Fast ing Glucose result greater than or equal to 126 mg/dLsuggests DIABETES MELLITUS per A.D.A. criteria. Performed By: #### L 500.2500, L100.0100, L503.6620 ####[facility] [address] [place], [address] Potassium [Moles/Vol] 4.3 mmol/L Normal 3.5-5.1 [facility] Comment on above: Performed By: #### L 500.2500, L100.0100, L503.6620 ####[facility] [address] [place], [address] Sodium [Moles/Vol] 138 mmol/L Normal 136-145 [facility] Comment on above: Performed By: #### L 500.2500, L100.0100, L503.6620 ####[facility] [address] [place], [address] Urea nitrogen [Mass/Vol] 34 mg/dL High 7-18 [facility] Comment on above: Performed By: #### L 500.2500, L100.0100, L503.6620 ####[facility] [address] [place], [address] Basophil percentageOrdered B y: Leslie Arriaga on 09-25-2024 Basophils/100 WBC (Bld) 0.6 % 0-[address] [facility] Blood urea nitrogen (BUN)/cr eatinine ratioOrdered By: Leslie Arriaga on 09-25-2024 Urea nitrogen/Creatinine [Mass ratio] 15.4 mg/mg 10-20 [facility] CBC W/Diff, Automatedon Absolute Lymph 0.91 X10 3/uL Normal 0.83-4.51 [facility] Comment on above: Performed By: #### L 500.2500, L100.0100, L503.6620 ####[facility] [address] [place], [address] Absolute Neut 6.7 X10 3/uL Normal 2.0-7.7 [facility] Comment on above: Performed By: #### L 500.2500, L100.0100, L503.6620 ####[facility] [address] [place], [address] Basophils/100 WBC (Bld) 0.6 % Normal 0-[address] [facility] Comment on above: Performed By: #### L 500.2500, L100.0100, L503.6620 ####[facility] [address] [place], [address] Eosinophils/100 WBC (Bld) 1.1 % Normal 0-5 [facility] Comment on above: Performed By: #### L 500.2500, L100.0100, L503.6620 ####[facility] [address] [place], [address] Erythrocyte distribution width (RBC) [Ratio] 16.2 % High 11.6-14.6 [facility] Comment on above: Performed By: #### L 500.2500, L100.0100, L503.6620 ####[facility] [address] [place], [address] Hematocrit (Bld) [Volume fraction] 36.0 % Low 40-54 [facility] Comment on above: Performed By: #### L 500.2500, L100.0100, L503.6620 ####[facility] [address] [place], [address] Hemoglobin (Bld) [Mass/Vol] 11.1 g/dL Low 13.0-16.5 [facility] Comment on above: Performed By: #### L 500.2500, L100.0100, L503.6620 ####[facility] [address] [place], [address] IG% 0.700 Normal 0.0-0.9 [facility] Comment on above: Result Comment: IG% - Immature Granulocytes (promyelocytes, myelocytes andmetamyelocytes) > 1% indicates that a LEFT SHIFT is Present. Performed By: #### L 500.2500, L100.0100, L503.6620 ####[facility] [address] [place], [address] Lymphocytes/100 WBC (Bld) 10.4 % Low 19-41 [facility] Comment on above: Performed By: #### L 500.2500, L100.0100, L503.6620 ####[facility] [address] [place], [address] MCH (RBC) [Entitic mass] 27.7 pg Normal 27.0-32.0 [facility] Comment on above: Performed By: #### L 500.2500, L100.0100, L503.6620 ####[facility] [address] [place], [address] MCHC (RBC) [Mass/Vol] 30.8 g/dL Low 32-36 [facility] Comment on above: Performed By: #### L 500.2500, L100.0100, L503.6620 ####[facility] [address] [place], [address] MCV (RBC) [Entitic vol] 89.8 fL Normal 80-[address] [facility] Comment on above: Performed By: #### L 500.2500, L100.0100, L503.6620 ####[facility] [address] [place], [address] Monocytes/100 WBC (Bld) 10.3 % High 0-[address] [facility] Comment on above: Performed By: #### L 500.2500, L100.0100, L503.6620 ####[facility] [address] [place], [address] Neutrophils/100 WBC (Bld) 76.9 % High 47-70 [facility] Comment on above: Performed By: #### L 500.2500, L100.0100, L503.6620 ####[facility] [address] [place], [address] Nucleated RBC (Bld) [#/Vol] 0 10*3/uL Normal 0-5 [facility] Comment on above: Performed By: #### L 500.2500, L100.0100, L503.6620 ####[facility] [address] [place], [address] Platelet mean volume (Bld) [Entitic vol] 10.5 fL Normal 6.2-12.0 [facility] Comment on above: Performed By: #### L 500.2500, L100.0100, L503.6620 ####[facility] [address] [place], [address] Platelets (Bld) [#/Vol] 256 10*3/uL Normal 150-450 [facility] Comment on above: Performed By: #### L 500.2500, L100.0100, L503.6620 ####[facility] [address] [place], [address] RBC (Bld) [#/Vol] 4.01 10*6/uL Low 4.6-6.2 [facility] Comment on above: Performed By: #### L 500.2500, L100.0100, L503.6620 ####[facility] [address] [place], [address] RDW SD 52.7 fl High 35.1-43.9 [facility] Comment on above: Performed By: #### L 500.2500, L100.0100, L503.6620 ####[facility] [address] [place], [address] WBC (Bld) [#/Vol] 8.7 10*3/uL Normal 4.4-11.0 [facility] Comment on above: Performed By: #### L 500.2500, L100.0100, L503.6620 ####[facility] [address] [place], [address] Carbon dioxide measurementOr dered By: Leslie Arriaga on 09-25-2024 CO2 [Moles/Vol] 28.0 mmol/L 21.0-32.0 [facility] Cardiology Visit Reporton Cardiology Visit Report Normal [facility] Chest PA and Lateralon 09-25 Chest PA and Lateral Normal [facility] Chloride measurementOrdered By: Leslie Arriaga on 09-25-2024 Chloride [Moles/Vol] 105 mmol/L 98-107 [facility] Eosinophil percentageOrdered By: Leslie Arriaga on 09-25-2024 Eosinophils/100 WBC (Bld) 1.1 % 0-5 [facility] Erythrocyte distribution wid th ratioOrdered By: Leslie Arriaga on 09-25-2024 Erythrocyte distribution width (RBC) [Ratio] 16.2 % High 11.6-14.6 [facility] Erythrocyte distribution wid th standard deviationOrdered By: Leslie Arriaga on 09-25-2024 Erythrocyte distribution width (RBC) [Entitic vol] 52.7 fL High 35.1-43.9 [facility] Estimated glomerular filtrat ion rate (GFR) AmericanOrdered By: Leslie Arriaga on 09-25-2024 Estimated GFR (MDRD) Amer 37 mL/min Low >60 [facility] Comment on above: GFR Calc Glomerular filtration rate ( GFR) estimationOrdered By: Leslie Arriaga on 09-25-2024 Estimated GFR (MDRD) Non-Af Amer 31 mL/min Low >60 [facility] Comment on above: Non- GFR Calc Glucose measurementOrdered B y: Leslie Arriaga on 09-25-2024 Glucose [Mass/Vol] 127 mg/dL High 74-106 [facility] Comment on above: Fasting Glucose resu lt greater than or equal to 126 mg/dL suggests DIABETES MELLITUS per A.D.A. criteria. Hematocrit Auto (Bld) [Volum e fraction]Ordered By: Leslie Arriaga on 09-25-2024 Hematocrit (Bld) [Volume fraction] 36.0 % Low 40-54 [facility] Hemoglobin measurementOrdere d By: Leslie Arriaga on 09-25-2024 Hemoglobin (Bld) [Mass/Vol] 11.1 g/dL Low 13.0-16.5 [facility] Immature granulocytes/100 WB C Auto (Bld)Ordered By: Leslie Arriaga on 09-25-2024 Immature granulocytes/100 WBC (Bld) 0.700 % 0.0-0.9 [facility] Comment on above: IG% - Immature Granu locytes (promyelocytes, myelocytes and metamyelocytes) > 1% indicates that a LEFT SHIFT is Present. Lymphocytes Auto (Unsp spec) [#/Vol]Ordered By: Leslie Arriaga on 09-25-2024 Lymphocytes (Bld) [#/Vol] 0.91 10*3/uL 0.83-4.51 [facility] Lymphocytes/100 WBC Auto (Un sp spec)Ordered By: Leslie Arriaga on 09-25-2024 Lymphocytes/100 WBC (Bld) 10.4 % Low 19-41 [facility] MCV (mean corpuscular volume ) determinationOrdered By: Leslie Arriaga on 09-25-2024 MCV (RBC) [Entitic vol] 89.8 fL 80-[address] [facility] Mean corpuscular hemoglobin (MCH) determinationOrdered By: Leslie Arriaga on 09-25-2024 MCH (RBC) [Entitic mass] 27.7 pg 27.0-32.0 [facility] Mean corpuscular hemoglobin concentration (MCHC) determinationOrdered By: Leslie Arriaga on 09-25-2024 MCHC (RBC) [Mass/Vol] 30.8 g/dL Low 32-36 [facility] Mean platelet volume determi nationOrdered By: Leslie Arriaga on 09-25-2024 Platelet mean volume (Bld) [Entitic vol] 10.5 fL 6.2-12.0 [facility] Monocyte percentageOrdered B y: Leslie Arriaga on 09-25-2024 Monocytes/100 WBC (Bld) 10.3 % High 0-10 [facility] Neutrophil percentageOrdered By: Leslie Arriaga on 09-25-2024 Neutrophils/100 WBC (Bld) 76.9 % High 47-70 [facility] Nucleated red blood cell per centageOrdered By: Leslie Arriaga on 09-25-2024 Nucleated RBC/100 WBC (Bld) [Ratio] 0 % 0-5 [facility] Platelet countOrdered By: Linsey Arriaga on 09-25-2024 Platelets (Bld) [#/Vol] 256 10*3/uL 150-450 [facility] Potassium measurementOrdered By: Leslie Arriaga on 09-25-2024 Potassium [Moles/Vol] 4.3 mmol/L 3.5-5.1 [facility] RBC Auto (Bld) [#/Vol]Ordere d By: Leslie Arriaga on 09-25-2024 RBC (Bld) [#/Vol] 4.01 10*6/uL Low 4.6-6.2 [facility] Serum anion gap measurementO rdered By: Leslie Arriaga on 09-25-2024 Anion gap [Moles/Vol] 5 mmol/L 5-15 [facility] Serum or plasma calcium kingsley urement (mass/volume)Ordered By: Leslie Arriaga on 09-25-2024 Calcium [Mass/Vol] 9.1 mg/dL 8.5-10.1 [facility] Serum or plasma creatinine m easurement (mass/volume)Ordered By: Leslie Arriaga on 09-25-2024 Creatinine [Mass/Vol] 2.21 mg/dL High 0.70-1.30 [facility] Comment on above: The validity of the calculated GFR & GFRAA in patients over 70 years has not been determined. Clinical correlation is essential. Serum or plasma urea nitroge n measurement (mass/volume)Ordered By: Leslie Arriaga on 09-25-2024 Urea nitrogen [Mass/Vol] 34 mg/dL High 7-18 [facility] Sodium levelOrdered By: Brian Arriaga on 09-25-2024 Sodium [Moles/Vol] 138 mmol/L 136-145 [facility] White blood cell (WBC) count Ordered By: Leslie Arriaga on 09-25-2024 WBC (Bld) [#/Vol] 8.7 10*3/uL 4.4-11.0 [facility] Culture, Fungus 8482on 08-04 CUF Normal [facility] Comment on above: Performed By: #### M 600.2000, M100.4001, M100.1999, M100.3000 ####[facility] [address] [place], [address] Culture, [facility] CUAN Prevotella and Porphyromonas species are generally SUSCEPTIBLE to Cefoxitin, Chloramphenicol, and Metronidazole and are usually RESISTANT to Penicillin. Prevotella oralis Beta Lactamase-Reportable Positive [facility] Comment on above: Performed By: #### M 600.2000, M100.4001, M100.2000, M100.3000 ####[facility] [address] [place], [address] Wound Cultureon 07-05-2024 WC [facility] Comment on above: Performed By: #### M 600.2000, M100.4001, M100.2000, M100.3000 ####[facility] [address] [place], [address] Gram Stainon 07-04-2024 GS Positive Normal [facility] Comment on above: Performed By: #### M 600.2000, M100.4001, M100.2000, M100.3000 ####[facility] [address] [place], [address] Bacteria identified Anaer cx Nom (Unsp spec)Ordered By: Joaquim Suárez on 07-03-2024 Anaerobic Culture Prevotella oralis Abnormal [facility] Fungus identified Cx Nom (Un sp spec)Ordered By: Joaquim Suárez on 07-03-2024 Fungal Culture Ann-Marie parapsilosis Abnormal [facility] Gram stainOrdered By: Bladimir Suárez on 07-03-2024 Microscopic observation Gram stain Nom (Unsp spec) [facility] Routine wound cultureOrdered By: Joaquim Suárez on 07-03-2024 Wound Culture Staphylococcus pseudintermediu Abnormal [facility] Lower Ext Art Exam w/o Exerc soco 06-17-2024 Lower Ext Art Exam w/o Exercis Normal [facility] Venous Duplex US - Hi Extre mon 06-17-2024 Venous Duplex US - Hi Extrem Normal [facility] CBC W/Diff, Automatedon 04-20 Absolute Lymph 0.94 X10 3/uL Normal 0.83-4.51 [facility] Comment on above: Performed By: #### L 100.0100, L504.2610, L500.4050 ####[facility] [address] [place], [address] Absolute Neut 5.7 X10 3/uL Normal 2.0-7.7 [facility] Comment on above: Performed By: #### L 100.0100, L504.2610, L500.4050 ####[facility] [address] [place], [address] Basophils/100 WBC (Bld) 0.6 % Normal 0-[address] [facility] Comment on above: Performed By: #### L 100.0100, L504.2610, L500.4050 ####[facility] [address] [place], [address] Eosinophils/100 WBC (Bld) 2.5 % Normal 0-5 [facility] Comment on above: Performed By: #### L 100.0100, L504.2610, L500.4050 ####[facility] [address] [place], [address] Erythrocyte distribution width (RBC) [Ratio] 16.3 % High 11.6-14.6 [facility] Comment on above: Performed By: #### L 100.0100, L504.2610, L500.4050 ####[facility] [address] [place], [address] Hematocrit (Bld) [Volume fraction] 36.9 % Low 40-54 [facility] Comment on above: Performed By: #### L 100.0100, L504.2610, L500.4050 ####[facility] [address] [place], [address] Hemoglobin (Bld) [Mass/Vol] 11.3 g/dL Low 13.0-16.5 [facility] Comment on above: Performed By: #### L 100.0100, L504.2610, L500.4050 ####[facility] [address] [place], [address] IG% 1.400 High 0.0-0.9 [facility] Comment on above: Result Comment: IG% - Immature Granulocytes (promyelocytes, myelocytes andmetamyelocytes) > 1% indicates that a LEFT SHIFT is Present. Performed By: #### L 100.0100, L504.2610, L500.4050 ####[facility] [address] [place], [address] Lymphocytes/100 WBC (Bld) 11.8 % Low 19-41 [facility] Comment on above: Performed By: #### L 100.0100, L504.2610, L500.4050 ####[facility] [address] [place], [address] MCH (RBC) [Entitic mass] 27.2 pg Normal 27.0-32.0 [facility] Comment on above: Performed By: #### L 100.0100, L504.2610, L500.4050 ####[facility] [address] [place], [address] MCHC (RBC) [Mass/Vol] 30.6 g/dL Low 32-36 [facility] Comment on above: Performed By: #### L 100.0100, L504.2610, L500.4050 ####[facility] [address] [place], [address] MCV (RBC) [Entitic vol] 88.7 fL Normal 80-94 [facility] Comment on above: Performed By: #### L 100.0100, L504.2610, L500.4050 ####[facility] [address] [place], [address] Monocytes/100 WBC (Bld) 11.6 % High 0-[address] [facility] Comment on above: Performed By: #### L 100.0100, L504.2610, L500.4050 ####[facility] [address] [place], [address] Neutrophils/100 WBC (Bld) 72.1 % High 47-70 [facility] Comment on above: Performed By: #### L 100.0100, L504.2610, L500.4050 ####[facility] [address] [place], [address] Nucleated RBC (Bld) [#/Vol] 0 10*3/uL Normal 0-5 [facility] Comment on above: Performed By: #### L 100.0100, L504.2610, L500.4050 ####[facility] [address] [place], [address] Platelet mean volume (Bld) [Entitic vol] 9.9 fL Normal 6.2-12.0 [facility] Comment on above: Performed By: #### L 100.0100, L504.2610, L500.4050 ####[facility] [address] [place], [address] Platelets (Bld) [#/Vol] 222 10*3/uL Normal 150-450 [facility] Comment on above: Performed By: #### L 100.0100, L504.2610, L500.4050 ####[facility] [address] [place], [address] RBC (Bld) [#/Vol] 4.16 10*6/uL Low 4.6-6.2 [facility] Comment on above: Performed By: #### L 100.0100, L504.2610, L500.4050 ####[facility] [address] [place], [address] RDW SD 53.2 fl High 35.1-43.9 [facility] Comment on above: Performed By: #### L 100.0100, L504.2610, L500.4050 ####[facility] [address] [place], [address] WBC (Bld) [#/Vol] 8.0 10*3/uL Normal 4.4-11.0 [facility] Comment on above: Performed By: #### L 100.0100, L504.2610, L500.4050 ####[facility] [address] [place], [address] Comprehensive Metabolic Prof ilon 05-05-2024 Albumin [Mass/Vol] 3.1 g/dL Low 3.2-5.0 [facility] Comment on above: Order Comment: 1 Performed By: #### L 100.0100, L504.2610, L500.4050 ####[facility] [address] [place], [address] Albumin/Globulin [Mass ratio] 0.6 {ratio} Low 0.9-2.4 [facility] Comment on above: Order Comment: 1 Performed By: #### L 100.0100, L504.2610, L500.4050 ####[facility] [address] [place], [address] ALK P 60 U/L Normal 45-117 [facility] Comment on above: Order Comment: 1 Performed By: #### L 100.0100, L504.2610, L500.4050 ####[facility] [address] [place], [address] ALT [Catalytic activity/Vol] 15 U/L Low 16-61 [facility] Comment on above: Order Comment: 1 Performed By: #### L 100.0100, L504.2610, L500.4050 ####[facility] [address] [place], [address] AST [Catalytic activity/Vol] 11 U/L Low 15-37 [facility] Comment on above: Order Comment: 1 Performed By: #### L 100.0100, L504.2610, L500.4050 ####[facility] [address] [place], [address] Bilirubin [Mass/Vol] 0.40 mg/dL Normal 0.20-1.00 [facility] Comment on above: Order Comment: 1 Result Comment: For patients on eltrombopag therapy, use of Dimension Java TBIL is not recommended. Performed By: #### L 100.0100, L504.2610, L500.4050 ####[facility] [address] [place], [address] BUN/CRE 20.3 RATIO High 10-20 [facility] Comment on above: Order Comment: 1 Performed By: #### L 100.0100, L504.2610, L500.4050 ####[facility] [address] [place], [address] CA,Total 9.3 mg/dL Normal 8.5-10.1 [facility] Comment on above: Order Comment: 1 Performed By: #### L 100.0100, L504.2610, L500.4050 ####[facility] [address] [place], [address] Chloride [Moles/Vol] 104 mmol/L Normal 98-107 [facility] Comment on above: Order Comment: 1 Performed By: #### L 100.0100, L504.2610, L500.4050 ####[facility] [address] [place], [address] CO2 [Moles/Vol] 27.0 mmol/L Normal 21.0-32.0 [facility] Comment on above: Order Comment: 1 Performed By: #### L 100.0100, L504.2610, L500.4050 ####[facility] [address] [place], [address] Creatinine [Mass/Vol] 2.17 mg/dL High 0.70-1.30 [facility] Comment on above: Order Comment: 1 Result Comment: The validity of the calculated GFR GFRAA in patients over70 years has not been determined. Clinical correlation isessential. Performed By: #### L 100.0100, L504.2610, L500.4050 ####[facility] [address] [place], [address] ECRCL 27.63 ml/min Normal [facility] Comment on above: Order Comment: 1 Performed By: #### L 100.0100, L504.2610, L500.4050 ####[facility] [address] [place], [address] EST GFR - AA 38 mL/min Low >60 [facility] Comment on above: Order Comment: 1 Result Comment: Afri can [place]ib[place] GFR Calc Performed By: #### L 100.0100, L504.2610, L500.4050 ####[facility] [address] [place], [address] GAP 3 Low 5-15 [facility] Comment on above: Order Comment: 1 Performed By: #### L 100.0100, L504.2610, L500.4050 ####[facility] [address] [place], [address] GFR/1.73 sq M.predicted among non-blacks MDRD (S/P/Bld) [Vol rate/Area] 31 mL/min/{1.73_m2} Low >60 [facility] Comment on above: Order Comment: 1 Result Comment: Non- GFR Calc Performed By: #### L 100.0100, L504.2610, L500.4050 ####[facility] [address] [place], [address] Globulin (S) [Mass/Vol] 4.9 g/dL High 2.2-4.2 [facility] Comment on above: Order Comment: 1 Performed By: #### L 100.0100, L504.2610, L500.4050 ####[facility] [address] [place], [address] Glucose [Mass/Vol] 130 mg/dL High 74-106 [facility] Comment on above: Order Comment: 1 Result Comment: Fast ing Glucose result greater than or equal to 126 mg/dLsuggests DIABETES MELLITUS per A.D.A. criteria. Performed By: #### L 100.0100, L504.2610, L500.4050 ####[facility] [address] [place], [address] Potassium [Moles/Vol] 4.8 mmol/L Normal 3.5-5.1 [facility] Comment on above: Order Comment: 1 Performed By: #### L 100.0100, L504.2610, L500.4050 ####[facility] [address] [place], [address] Sodium [Moles/Vol] 134 mmol/L Low 136-145 [facility] Comment on above: Order Comment: 1 Performed By: #### L 100.0100, L504.2610, L500.4050 ####[facility] [address] [place], [address] T PROT 8.0 g/dL Normal 6.4-8.2 [facility] Comment on above: Order Comment: 1 Performed By: #### L 100.0100, L504.2610, L500.4050 ####[facility] [address] [place], [address] Urea nitrogen [Mass/Vol] 44 mg/dL High 7-18 [facility] Comment on above: Order Comment: 1 Performed By: #### L 100.0100, L504.2610, L500.4050 ####[facility] [address] [place], [address] Estimated glomerular filtrat ion rate (GFR) AmericanOrdered By: Russ Zamora on 05-05-2024 Estimated GFR (MDRD) Amer 38 mL/min Low >60 [facility] Comment on above: GFR Calc LDHon 05-05-2024 LDH 126 U/L Normal 87-241 [facility] Comment on above: Order Comment: 1 Performed By: #### L 100.0100, L504.2610, L500.4050 ####[facility] [address] [place], [address] Oncology Visit Reporton 04-20 Oncology Visit Report Normal [facility] CREATININE FINGERSTICKon Creatinine [Mass/Vol] 1.4 mg/dL High 0.70-1.30 [facility] Comment on above: Performed By: #### L 9100.0200 ####[facility] [address] [place], [place], [address] GFR/1.73 sq M.predicted among non-blacks MDRD (S/P/Bld) [Vol rate/Area] 50.0000 mL/min/{1.73_m2} Low >60 [facility] Comment on above: Performed By: #### L 9100.0200 ####[facility] [address] [place], [place], [address] CT Chest AND Abd W/ Contrast on 04-28-2024 CT Chest AND Abd W/ Contrast Normal [facility] Miscellaneous procedureOrder ed By: Russ Zamora on 01-28-2024 Miscellaneous Test See comment [facility] Comment on above: Sent directly to [facility] per ordering physician. Bacteria identified Cx Nom ( Wound)Ordered By: Joaquim Suárez on 12-24-2023 Wound Culture Staphylococcus pseudintermediu [facility] Wound Culture Enterococcus faecalis [facility] Wound Culture Streptococcus pyogenes [facility] Gram stain for investigation of transfusion reactionOrdered By: Joaquim Suárez on 12-24-2023 Microscopic observation Gram stain Nom (Unsp spec) [facility] Absolute lymphocyte countOrd ered By: Russ Zamora on 11-06-2023 Lymphocytes Auto (Unsp spec) [#/Vol] 0.95 10*3/uL 0.83-4.51 [facility] Addendum DocumentOrdered By: Russ Zamora on 11-06-2023 Serum Immunofixation Comments Comment . [facility] Comment on above: Protein electrophore sis scan will follow via computer,mail, or trolley worker delivery. Albumin Elph [Mass/Vol]Order ed By: Russ Zamora on 11-06-2023 Albumin [Mass/Vol] 3.2 g/dL 2.9-4.4 [facility] Alpha 1 globulin Elph [Mass/ Vol]Ordered By: Russ Wallsnegro on 11-06-2023 Upbpf-9-Mvjzlscvk (PILY) 0.4 g/dL 0.0-0.[address] [facility] Hkzgu-2-Kscgzzaxo (PILY) 1.3 g/dL High 0.4-1.[address] [facility] Automated lymphocyte count a s percentage of total leukocytesOrdered By: Russ Zamora on 11-06-2023 Lymphocytes/100 WBC Auto (Unsp spec) 10.5 % 19-41 [facility] Basophil percentageOrdered B y: Russ Wallsnegro on 11-06-2023 Basophils/100 WBC (Bld) 0.6 % 0-[address] [facility] Bilirubin [Mass/Vol] 0.30 mg/dL 0.20-1.00 [facility] Comment on above: For patients on eltr ombopag therapy, use of Dimension Java TBIL is not recommended. Chloride [Moles/Vol] 105 mmol/L 98-107 [facility] Eosinophils/100 WBC (Bld) 2.1 % 0-5 [facility] Glucose [Mass/Vol] 106 mg/dL 74-106 [facility] Comment on above: Fasting Glucose resu lt from 100 to 125 mg/dL suggests IMPAIRED HOMEOSTASIS per A.D.A. criteria. Hemoglobin (Bld) [Mass/Vol] 11.5 g/dL 13.0-16.5 [facility] LDH [Catalytic activity/Vol] 170 U/L 87-241 [facility] Monocytes/100 WBC (Bld) 10.7 % 0-[address] [facility] Neutrophils (Bld) [#/Vol] 6.8 10*3/uL 2.0-7.7 [facility] Neutrophils/100 WBC (Bld) 75.2 % 47-70 [facility] Potassium [Moles/Vol] 4.3 mmol/L 3.5-5.1 [facility] Protein [Mass/Vol] 8.2 g/dL 6.4-8.2 [facility] Sodium [Moles/Vol] 135 mmol/L 136-145 [facility] WBC (Bld) [#/Vol] 9.0 10*3/uL 4.4-11.0 [facility] Beta globulin Elph [Mass/Vol ]Ordered By: Russ Zamora on 11-06-2023 Beta-Globulins (PILY) 1.0 g/dL 0.7-1.3 [facility] C-reactive protein measureme nt by high sensitivity methodOrdered By: Russ Zamora on 11-06-2023 C-Reactive Protein Extended Range 22.10 mg/L High 0.0-3.0 [facility] Comment on above: C-Reactive Protein ( CRP) provides useful information for thediagnosis, therapy and monitoring of inflammatory processesand associated diseases. For the evaluation of Relative Riskfor Cardiovascular Disease, a High Sensitivity CRP (HSCRP)should be ordered. C-reactive protein measurement by high sensitivity method 22.10 mg/L High 0.0-3.0 [facility] Comment on above: C-Reactive Protein ( CRP) provides useful information for thediagnosis, therapy and monitoring of inflammatory processesand associated diseases. For the evaluation of Relative Riskfor Cardiovascular Disease, a High Sensitivity CRP (HSCRP)should be ordered. Determination of erythrocyte mean corpuscular volume (MCV)Ordered By: Russ Zamora on 11-06-2023 MCV (RBC) [Entitic vol] 88.0 fL 80-[address] [facility] Erythrocyte distribution wid th ratioOrdered By: Russ Zamora on 11-06-2023 Erythrocyte distribution width (RBC) [Ratio] 15.5 % 11.6-14.6 [facility] Erythrocyte distribution wid th standard deviationOrdered By: Russ Zamora on 11-06-2023 Erythrocyte distribution width (RBC) [Entitic vol] 49.5 fL 35.1-43.9 [facility] Erythrocyte sedimentation ra teOrdered By: Russ Zamora on 11-06-2023 ESR (Bld) [Velocity] 21 mm/h High 0-20 [facility] Gamma globulin Elph [Mass/Vo l]Ordered By: Russ Zamora on 11-06-2023 Gamma Globulins (PILY) 1.8 g/dL 0.4-1.8 [facility] Hematocrit Auto (Bld) [Volum e fraction]Ordered By: Russ Zamora on 11-06-2023 Hematocrit (Bld) [Volume fraction] 36.8 % 40-54 [facility] Hemoglobin (Reticulocytes) [ Entitic mass]Ordered By: Russ Zamora on 11-06-2023 Reticulocyte Hemoglobin Equivalent 31.4 pg 30-35 [facility] Hemoglobin in reticulocytes (mass per reticulocyte)Ordered By: Russ Zamora on 11-06-2023 Hemoglobin (Reticulocytes) [Entitic mass] 31.4 pg 30-35 [facility] IgA [Mass/Vol]Ordered By: Flores Zamora on 11-06-2023 Immunoglobulin A 311 mg/dL 61-437 [facility] IgG [Mass/Vol]Ordered By: Flores Zamora on 11-06-2023 Immunoglobulin G 1529 mg/dL 603-1613 [facility] Immature granulocytes/100 WB C Auto (Bld)Ordered By: Russ Zamora on 11-06-2023 Immature granulocytes/100 WBC (Bld) 0.900 % 0.0-0.9 [facility] Comment on above: IG% - Immature Granu locytes (promyelocytes, myelocytes and metamyelocytes) > 1% indicates that a LEFT SHIFT is Present. Immature reticulocyte fracti onOrdered By: Russ Zamora on 11-06-2023 Immature Reticulocyte Fraction 22.10 % High 3.00-15.90 [facility] Immunoglobulin M measurement Ordered By: Russ Zamora on 11-06-2023 Immunoglobulin M 157 mg/dL High 15-143 [facility] Immunoglobulin light chains. kappa [Mass/Vol]Ordered By: Russ Zamora on 11-06-2023 Free [place] Light Chains, Quant 100.3 mg/L High 3.3-19.4 [facility] Immunoglobulin light chains. kappa/Immunoglobulin light chains.lambda (S) [Mass ratio]Ordered By: Russ Zamora on 11-06-2023 Free [place]/Lambda Light Chain Ratio 1.63 0.26-1.65 [facility] Comment on above: Performed at: [address] [id number] Director: Seb Bertrand PhD, Phone: [phone] Interpretation IEP [Interp]O rdered By: Russ Zamora on 11-06-2023 Immunofixation Screen Comment . [facility] Comment on above: No monoclonality det ected. Interpretation of serum or p lasma protein pattern by immunofixation (narrative resultOrdered By: Russ Zamora on 11-06-2023 Protein Fractions Immunofixation Jose Luis [Interp] Not Observed g/dL Not Observed [facility] Laboratory - Chemistry and C hemistry - challengeOrdered By: Russ Zamora on 11-06-2023 Albumin/Globulin [Mass ratio] 0.6 {ratio} 0.9-2.4 [facility] ALP [Catalytic activity/Vol] 62 U/L 45-117 [facility] ALT [Catalytic activity/Vol] 17 U/L 16-61 [facility] CO2 [Moles/Vol] 24.0 mmol/L 21.0-32.0 [facility] Urea nitrogen/Creatinine [Mass ratio] 21.9 mg/mg 10-20 [facility] Laboratory - Hematology and Cell countsOrdered By: Russ Zamora on 11-06-2023 MCH (RBC) [Entitic mass] 27.5 pg 27.0-32.0 [facility] MCHC (RBC) [Mass/Vol] 31.3 g/dL 32-36 [facility] Nucleated RBC/100 WBC (Bld) [Ratio] 0 % 0-5 [facility] Platelet mean volume (Bld) [Entitic vol] 9.1 fL 6.2-12.0 [facility] Platelets (Bld) [#/Vol] 270 10*3/uL 150-450 [facility] Lambda free light chain kingsley urementOrdered By: Russ Zamora on 11-06-2023 Free Lambda Light Chains, Quant 61.5 mg/L High 5.7-26.3 [facility] No Panel InformationOrdered By: Russ Zamora on 11-06-2023 Addendum Document Comment . [facility] Comment on above: Protein electrophore sis scan will follow via computer,mail, or trolley worker delivery. Estimated Creatinine Clearance Calc 31.12 ml/min [facility] Estimated GFR (MDRD) Amer 43 mL/min >60 [facility] Comment on above: GFR Calc Estimated GFR (MDRD) Non-Af Amer 35 mL/min >60 [facility] Comment on above: Non- GFR Calc Protein Fractions Immunofixa tion Jose Luis [Interp]Ordered By: Russ Zamora on 11-06-2023 M-Arash (PILY) Not Observed g/dL Not Observed [facility] RBC Auto (Bld) [#/Vol]Ordere d By: Russ Zamora on 11-06-2023 RBC (Bld) [#/Vol] 4.18 10*6/uL 4.6-6.2 [facility] Reticulocytes Auto (Bld) [#/ Vol]Ordered By: Russ Zamora on 11-06-2023 Reticulocyte Count 2.12 % High 0.5-1.5 [facility] Reticulocytes/100 RBC (Bld) 2.12 % High 0.5-1.5 [facility] Serum albumin/globulin ratio Ordered By: Russ Zamora on 11-06-2023 Albumin/Globulin (PILY) 0.8 0.7-1.7 [facility] Serum xmnrk-2-ctrqqnqe measu rement by electrophoresisOrdered By: Russ Zamora on 11-06-2023 Alpha 1 globulin Elph [Mass/Vol] 0.4 g/dL 0.0-0.4 [facility] Alpha 1 globulin Elph [Mass/Vol] 1.3 g/dL High 0.4-1.0 [facility] Serum globulin measurement ( mass/volume)Ordered By: Russ Zamora on 11-06-2023 Globulin (S) [Mass/Vol] 4.4 g/dL 2.2-3.9 [facility] Serum immunoglobulin kappa l ight chains/immunoglobulin lambda light chains mass ratioOrdered By: Russ Zamora on 11-06-2023 Immunoglobulin light chains.kappa/Immunoglobu mellissa light chains.lambda (S) [Mass ratio] 1.63 0.26-1.65 [facility] Comment on above: Performed at: [address] [id number] Director: Seb Bertrand PhD, Phone: [id number] Serum or plasma IgA measurem ent (mass/volume)Ordered By: Russ Zamora on 11-06-2023 IgA [Mass/Vol] 311 mg/dL 61-437 [facility] Serum or plasma IgG measurem ent (mass/volume)Ordered By: Russ Zamora on 11-06-2023 IgG [Mass/Vol] 1529 mg/dL [id number] [facility] Serum or plasma beta globuli n measurement by electrophoresis (mass/volume)Ordered By: Russ Walls on 11-06-2023 Beta globulin Elph [Mass/Vol] 1.0 g/dL 0.7-1.3 [facility] Serum or plasma calcium kings[place] urement (mass/volume)Ordered By: Russ Walls on 11-06-2023 Calcium [Mass/Vol] 9.0 mg/dL 8.5-10.1 [facility] Serum or plasma creatinine m easurement (mass/volume)Ordered By: Russ Walls on 11-06-2023 Creatinine [Mass/Vol] 1.96 mg/dL 0.70-1.30 [facility] Comment on above: The validity of the calculated GFR & GFRAA in patients over 70 years has not been determined. Clinical correlation is essential. Serum or plasma gamma globul in measurement by electrophoresis (mass/volume)Ordered By: Russ Walls on 11-06-2023 Gamma globulin Elph [Mass/Vol] 1.8 g/dL 0.4-1.8 [facility] Serum or plasma immunoelectr ophoresis interpretation (nominal result)Ordered By: Russ Walls on 11-06-2023 Interpretation IEP [Interp] Comment . [facility] Comment on above: No monoclonality det ected. Serum or plasma immunoglobul in kappa light chains measurement (mass/volume)Ordered By: Russ Walls on 11-06-2023 Immunoglobulin light chains.kappa [Mass/Vol] 100.3 mg/L High 3.3-19.4 [facility] Serum or plasma urea nitroge n measurement (mass/volume)Ordered By: Russ Walls on 11-06-2023 Urea nitrogen [Mass/Vol] 43 mg/dL 7-18 [facility] Serum or plasma uric acid me asurement (mass/volume)Ordered By: [facility] on 11-06-2023 Urate [Mass/Vol] 6.6 mg/dL 3.5-7.2 [facility] Comment on above: The drugs N-Acetylcy steine and Metamizole may falsely depress this assay. Thin prep Papanicolaou smear with manual screeningOrdered By: Russ Walls on 11-06-2023 Thin prep Papanicolaou smear with manual screening 3.2 g/dL 3.2-5.0 [facility] Thin prep Papanicolaou smear with manual screening 15 U/L 15-37 [facility] Thin prep Papanicolaou smear with manual screening 6 5-15 [facility] Thin prep Papanicolaou smear with manual screening 0.8 0.7-1.7 [facility] Total protein bloodOrdered B y: Russ Walsl on 11-06-2023 Protein [Mass/Vol] 7.6 g/dL 6.0-8.5 [facility] Basophil percentageOrdered B y: Russ [facility] on 10-12-2023 Creatinine [Mass/Vol] 1.5 mg/dL 0.70-1.30 [facility] Laboratory - Chemistry and C hemistry - challengeOrdered By: Russ Walls on 10-12-2023 GFR/1.73 sq M.predicted among non-blacks MDRD (S/P/Bld) [Vol rate/Area] 49.0000 mL/min/{1.73_m2} >60 [facility] Absolute lymphocyte countOrd ered By: Leslie Arriaga on 07-26-2023 Lymphocytes Auto (Unsp spec) [#/Vol] 1.22 10*3/uL 0.83-4.51 [facility] Assessment of wrist artery p atency prior to arterial punctureOrdered By: Lorie Mart on 07-26-2023 Arterial patency Wrist artery --pre arterial puncture Positive [facility] Base excessOrdered By: Obed Mart on 07-26-2023 Base excess Calc (BldV) [Moles/Vol] -1 mmol/L -2-2 [facility] Basophil percentageOrdered B y: Leslie Arriaga on 07-26-2023 Basophils/100 WBC (Bld) 0.7 % 0-1 [facility] Chloride [Moles/Vol] 105 mmol/L 98-107 [facility] Eosinophils/100 WBC (Bld) 1.7 % 0-5 [facility] Glucose [Mass/Vol] 99 mg/dL 74-106 [facility] Neutrophils (Bld) [#/Vol] 9.0 10*3/uL 2.0-7.7 [facility] Neutrophils/100 WBC (Bld) 76.3 % 47-70 [facility] Potassium [Moles/Vol] 4.8 mmol/L 3.5-5.1 [facility] Sodium [Moles/Vol] 135 mmol/L 136-145 [facility] WBC (Bld) [#/Vol] 11.7 10*3/uL 4.4-11.0 [facility] Basophil percentageOrdered B y: Lorie Mart on 07-26-2023 Basophil percentage 24.8 mmol/L 22-26 [facility] Basophils/100 WBC (Bld) 95 % 95-[address] [facility] Blood erythrocytes count (nu mber/volume)Ordered By: Leslie Arriaga on 07-26-2023 RBC (Bld) [#/Vol] 4.50 10*6/uL 4.6-6.2 [facility] Blood hemoglobin measurement (mass/volume)Ordered By: Leslie Arriaga on 07-26-2023 Hemoglobin (Bld) [Mass/Vol] 12.5 g/dL 13.0-16.5 [facility] Blood lymphocytes/100 leukoc ytesOrdered By: Leslie Arriaga on 07-26-2023 Lymphocytes/100 WBC (Bld) 10.4 % 19-41 [facility] Blood monocytes/100 leukocyt esOrdered By: Leslie Arriaga on 07-26-2023 Monocytes/100 WBC (Bld) 10.2 % 0-[address] [facility] Blood platelet mean volumeOr dered By: Leslie Arriaga on 07-26-2023 Platelet mean volume (Bld) [Entitic vol] 10.6 fL 6.2-12.0 [facility] CO2 (BldA) [Partial pressure ]Ordered By: Lorie Mart on 07-26-2023 CO2 (Bld) [Partial pressure] 42.6 mm[Hg] 35-45 [facility] Determination of erythrocyte mean corpuscular volume (MCV)Ordered By: Leslie Arriaga on 07-26-2023 MCV (RBC) [Entitic vol] 87.6 fL 80-[address] [facility] Hematocrit Auto (Bld) [Volum e fraction]Ordered By: Leslie Arriaga on 07-26-2023 Hematocrit (Bld) [Volume fraction] 39.4 % 40-54 [facility] Laboratory - Chemistry and C hemistry - challengeOrdered By: Leslie Arriaga on 07-26-2023 CO2 [Moles/Vol] 28.0 mmol/L 21.0-32.0 [facility] Natriuretic peptide B (Bld) [Mass/Vol] 233.5 pg/mL 0-100 [facility] Urea nitrogen/Creatinine [Mass ratio] 25.4 mg/mg 10-20 [facility] Laboratory - Hematology and Cell countsOrdered By: Leslie Arriaga on 07-26-2023 Erythrocyte distribution width (RBC) [Entitic vol] 52.0 fL 35.1-43.9 [facility] Erythrocyte distribution width (RBC) [Ratio] 16.3 % 11.6-14.6 [facility] Immature granulocytes/100 WBC (Bld) 0.700 % 0.0-0.9 [facility] Comment on above: IG% - Immature Granu locytes (promyelocytes, myelocytes and metamyelocytes) > 1% indicates that a LEFT SHIFT is Present. MCH (RBC) [Entitic mass] 27.8 pg 27.0-32.0 [facility] Nucleated RBC/100 WBC (Bld) [Ratio] 0 % 0-5 [facility] MCHC Auto (RBC) [Mass/Vol]Or dered By: Leslie Arriaga on 07-26-2023 MCHC (RBC) [Mass/Vol] 31.7 g/dL 32-36 [facility] No Panel InformationOrdered By: Leslie Arriaga on 07-26-2023 Estimated GFR (MDRD) Amer 40 mL/min >60 [facility] Comment on above: GFR Calc Estimated GFR (MDRD) Non-Af Amer 33 mL/min >60 [facility] Comment on above: Non- GFR Calc No Panel InformationOrdered By: Lorie Mart on 07-26-2023 Blood Gas Sample Site R Radial [facility] Blood Gas Specimen Type ART [facility] Blood Gas Total CO2 26 mmol/L [facility] Blood Gas Vent Mode Not entered [facility] Oxygen Delivery Device [id number] [facility] Oxygen (BldA) [Partial press ure]Ordered By: Lorie Mart on 07-26-2023 Oxygen (Bld) [Partial pressure] 77 mmHG 75-100 [facility] Platelets bldOrdered By: Markus Arriaga on 07-26-2023 Platelets (Bld) [#/Vol] 264 10*3/uL 150-450 [facility] Serum or plasma calcium kings[place] urement (mass/volume)Ordered By: Leslie Arriaga on 07-26-2023 Calcium [Mass/Vol] 9.3 mg/dL 8.5-10.1 [facility] Serum or plasma creatinine m easurement (mass/volume)Ordered By: Leslie Arriaga on 07-26-2023 Creatinine [Mass/Vol] 2.09 mg/dL 0.70-1.30 [facility] Comment on above: The validity of the calculated GFR & GFRAA in patients over 70 years has not been determined. Clinical correlation is essential. Serum or plasma urea nitroge n measurement (mass/volume)Ordered By: Leslie Arriaga on 07-26-2023 Urea nitrogen [Mass/Vol] 53 mg/dL 7-18 [facility] Thin prep Papanicolaou smear with manual screeningOrdered By: Leslie Arriaga on 07-26-2023 Thin prep Papanicolaou smear with manual screening 2 5-15 [facility] pH measurementOrdered By: Pj Mart on 07-26-2023 pH (Unsp spec) 7.37 [pH] 7.35-7.45 [facility] Anaerobic cultureOrdered By: Joaquim Suárez on 06-22-2023 Bacteria identified Anaer cx Nom (Unsp spec) No anaerobic bacteria isolated. [facility] Bacteria identified Cx Nom ( Wound)Ordered By: Joaquim Suárez on 06-22-2023 Wound Culture Staphylococcus epidermidis [facility] Wound Culture Corynebacterium jeikeium [facility] Fungus cultureOrdered By: Flores Suárez on 06-22-2023 Fungus identified Cx Nom (Unsp spec) [facility] Gram stain for investigation of transfusion reactionOrdered By: Joaquim Suárez on 06-22-2023 Microscopic observation Gram stain Nom (Unsp spec) [facility] Glucose Glucometer (BldC) [M ass/Vol]Ordered By: Joaquim Suárez on 10-20-2023 Glucose [Mass/Vol] 72 mg/dL 74-106 [facility] Comment on above: MANAGEMENT OF PATIEN T CARE PER NURSING PROTOCOL Absolute lymphocyte countOrd ered By: Russ Zamora on 04-17-2023 Lymphocytes Auto (Unsp spec) [#/Vol] 1.02 10*3/uL 0.83-4.51 [facility] Basophil percentageOrdered B y: Russ Zamora on 04-17-2023 Basophils/100 WBC (Bld) 0.5 % 0-[address] [facility] Bilirubin [Mass/Vol] 0.30 mg/dL 0.20-1.00 [facility] Comment on above: For patients on eltr ombopag therapy, use of Dimension Java TBIL is not recommended. Chloride [Moles/Vol] 102 mmol/L 98-107 [facility] Eosinophils/100 WBC (Bld) 2.6 % 0-5 [facility] Glucose [Mass/Vol] 209 mg/dL 74-106 [facility] Comment on above: Glucose result great er than or equal to 200 mg/dLsuggests DIABETES MELLITUS per A.D.A. criteria. LDH [Catalytic activity/Vol] 152 U/L 87-241 [facility] Neutrophils (Bld) [#/Vol] 6.0 10*3/uL 2.0-7.7 [facility] Neutrophils/100 WBC (Bld) 74.2 % 47-70 [facility] Potassium [Moles/Vol] 4.3 mmol/L 3.5-5.1 [facility] Protein [Mass/Vol] 7.8 g/dL 6.4-8.2 [facility] Sodium [Moles/Vol] 136 mmol/L 136-145 [facility] WBC (Bld) [#/Vol] 8.1 10*3/uL 4.4-11.0 [facility] Blood erythrocytes count (nu mber/volume)Ordered By: Russ Zamora on 04-17-2023 RBC (Bld) [#/Vol] 4.45 10*6/uL 4.6-6.2 [facility] Blood hemoglobin measurement (mass/volume)Ordered By: Russ Zamora on 04-17-2023 Hemoglobin (Bld) [Mass/Vol] 12.3 g/dL 13.0-16.5 [facility] Blood lymphocytes/100 leukoc ytesOrdered By: Russ Sera on 04-17-2023 Lymphocytes/100 WBC (Bld) 12.6 % 19-41 [facility] Blood monocytes/100 leukocyt esOrdered By: [facility] Monocytes/100 WBC (Bld) 9.4 % 0-[address] [facility] Blood platelet mean volumeOr dered By: Russ Zamora on 04-17-2023 Platelet mean volume (Bld) [Entitic vol] 9.5 fL 6.2-12.0 [facility] Determination of erythrocyte mean corpuscular volume (MCV)Ordered By: Russ Zamora on 04-17-2023 MCV (RBC) [Entitic vol] 89.9 fL 80-[address] [facility] Hematocrit Auto (Bld) [Volum e fraction]Ordered By: Russ Walls on 04-17-2023 Hematocrit (Bld) [Volume fraction] 40.0 % 40-54 [facility] Laboratory - Chemistry and C hemistry - challengeOrdered By: [place] Kavita on 04-17-2023 ALP [Catalytic activity/Vol] 58 U/L 45-117 [facility] ALT [Catalytic activity/Vol] 21 U/L 16-61 [facility] CO2 [Moles/Vol] 27.0 mmol/L 21.0-32.0 [facility] Globulin (S) [Mass/Vol] 4.5 g/dL 2.2-4.[address] [facility] Urea nitrogen/Creatinine [Mass ratio] 20.3 mg/mg 10-20 [facility] Laboratory - Hematology and Cell countsOrdered By: Russ Kavita on 04-17-2023 Erythrocyte distribution width (RBC) [Entitic vol] 54.4 fL 35.1-43.9 [facility] Erythrocyte distribution width (RBC) [Ratio] 16.5 % 11.6-14.6 [facility] Immature granulocytes/100 WBC (Bld) 0.700 % 0.0-0.9 [facility] Comment on above: IG% - Immature Granu locytes (promyelocytes, myelocytes and metamyelocytes) > 1% indicates that a LEFT SHIFT is Present. MCH (RBC) [Entitic mass] 27.6 pg 27.0-32.0 [facility] Nucleated RBC/100 WBC (Bld) [Ratio] 0 % 0-5 [facility] Auto (RBC) [Mass/Vol]Or dered By: Russ Zamora on 04-17-2023 MCHC (RBC) [Mass/Vol] 30.8 g/dL 32-36 [facility] No Panel InformationOrdered By: Russ Zamora on 04-17-2023 Estimated Creatinine Clearance Calc 29.38 ml/min [facility] Estimated GFR (MDRD) Amer 45 mL/min >60 [facility] Comment on above: GFR Calc Estimated GFR (MDRD) Non-Af Amer 37 mL/min >60 [facility] Comment on above: Non- GFR Calc Platelets bldOrdered By: Frantz Zamora on 04-17-2023 Platelets (Bld) [#/Vol] 214 10*3/uL 150-450 [facility] Serum or plasma albumin kings[place] urement (mass/volume)Ordered By: Russ Zamora on 04-17-2023 Albumin [Mass/Vol] 3.3 g/dL 3.2-5.0 [facility] Serum or plasma albumin/glob ulin mass ratioOrdered By: Russ Zamora on 04-17-2023 Albumin/Globulin [Mass ratio] 0.7 {ratio} 0.9-2.4 [facility] Serum or plasma calcium kings[place] urement (mass/volume)Ordered By: Russ Zamora on 04-17-2023 Calcium [Mass/Vol] 9.1 mg/dL 8.5-10.1 [facility] Serum or plasma creatinine m easurement (mass/volume)Ordered By: Russ Zamora on 04-17-2023 Creatinine [Mass/Vol] 1.87 mg/dL 0.70-1.30 [facility] Comment on above: The validity of the calculated GFR & GFRAA in patients over 70 years has not been determined. Clinical correlation is essential. Serum or plasma urea nitroge n measurement (mass/volume)Ordered By: Russ Zamora on 04-17-2023 Urea nitrogen [Mass/Vol] 38 mg/dL 7-18 [facility] Thin prep Papanicolaou smear with manual screeningOrdered By: Russ Zamora on 04-17-2023 Thin prep Papanicolaou smear with manual screening 16 U/L 15-37 [facility] Thin prep Papanicolaou smear with manual screening 7 5-15 [facility] Basophil percentageOrdered B y: Russ Zamora on 04-10-2023 Creatinine [Mass/Vol] 1.1 mg/dL 0.70-1.30 [facility] No Panel InformationOrdered By: Russ Zamora on 04-10-2023 Bedside Estimated GFR (eGFR) > 60.0000 mL/min >60 [facility] Anaerobic cultureOrdered By: Bonny Glynn on 01-13-2023 Bacteria identified Anaer cx Nom (Unsp spec) No anaerobic bacteria isolated. [facility] Bacteria identified Cx Nom ( Wound)Ordered By: Bonny Glynn on 01-11-2023 [facility]ound [facility] Gram stain for investigation of transfusion reactionOrdered By: Bonny Glynn on 01-09-2023 Microscopic observation Gram stain Nom (Unsp spec) [facility] Anaerobic cultureOrdered By: Bonny Glynn on 01-08-2023 Bacteria identified Anaer cx Nom (Unsp spec) No anaerobic bacteria isolated. [facility] Bacteria identified Cx Nom ( Wound)Ordered By: Bonny Glynn on 01-08-2023 Wound Culture [facility] Gram stain for investigation of transfusion reactionOrdered By: Bonny Glynn on 01-08-2023 Microscopic observation Gram stain Nom (Unsp spec) [facility] Laboratory - Microbiology an d Antimicrobial susceptibilityOrdered By: Dr. Ochoa on 01-05-2023 Bacteria identified Cx Nom (Bld) No growth in 5 days. [facility] Culture, urineOrdered By: Dr Marianna Ochoa on 01-02-2023 Bacteria identified Cx Nom (U) Culture exhibits no growth. [facility] Influenza virus A and B and SARS-CoV-2 (COVID-19) Ag panel - Upper respiratory specimOrdered By: Dr. Ochoa on 12-31-2022 SARS-CoV-2 & FLU Antigen (Rapid) Influenzae A [facility] Absolute lymphocyte countOrd ered By: Dr. Ochoa on 12-30-2022 Lymphocytes Auto (Unsp spec) [#/Vol] 0.68 10*3/uL 0.83-4.51 [facility] Basophil percentageOrdered B y: Dr. Ochoa on 12-30-2022 Basophil percentage 0-5 SEEN /hpf 0-5 [facility] Basophils/100 WBC (Bld) 0.5 % 0-[address] [facility] Bilirubin [Mass/Vol] 0.50 mg/dL 0.20-1.00 [facility] Comment on above: For patients on eltr ombopag therapy, use of Dimension [place] TBIL is not recommended. Chloride [Moles/Vol] 102 mmol/L 98-107 [facility] Eosinophils/100 WBC (Bld) 0.2 % 0-5 [facility] Glucose [Mass/Vol] 119 mg/dL 74-106 [facility] Comment on above: Fasting Glucose resu lt from 100 to 125 mg/dL suggests IMPAIRED HOMEOSTASIS per A.D.A. criteria. Lactate [Moles/Vol] 1.4 mmol/L 0.4-2.0 [facility] Neutrophils (Bld) [#/Vol] 8.8 10*3/uL 2.0-7.7 [facility] Neutrophils/100 WBC (Bld) 83.3 % 47-70 [facility] Potassium [Moles/Vol] 5.2 mmol/L 3.5-5.1 [facility] Protein [Mass/Vol] 8.2 g/dL 6.4-8.2 [facility] Sodium [Moles/Vol] 134 mmol/L 136-145 [facility] WBC (Bld) [#/Vol] 10.6 10*3/uL 4.4-11.0 [facility] Bilirubin Test strip Ql (U)O rdered By: Dr. Ochoa on 12-30-2022 Bilirubin Ql (U) Negative Negative [facility] Blood erythrocytes count (nu mber/volume)Ordered By: Dr. Ochoa on 12-30-2022 RBC (Bld) [#/Vol] 4.36 10*6/uL 4.6-6.2 [facility] Blood hemoglobin measurement (mass/volume)Ordered By: Dr. Ochoa on 12-30-2022 Hemoglobin (Bld) [Mass/Vol] 12.1 g/dL 13.0-16.5 [facility] Blood lymphocytes/100 leukoc ytesOrdered By: Dr. Ochoa on 12-30-2022 Lymphocytes/100 WBC (Bld) 6.4 % 19-41 [facility] Blood monocytes/100 leukocyt esOrdered By: Dr. Ochoa on 12-30-2022 Monocytes/100 WBC (Bld) 9.1 % 0-[address] [facility] Blood platelet mean volumeOr dered By: Dr. Ochoa on 12-30-2022 Platelet mean volume (Bld) [Entitic vol] 10.2 fL 6.2-12.0 [facility] Culture, urineOrdered By: Chino Ochoa on 12-30-2022 Bacteria identified Cx Nom (U) Culture exhibits no growth. [facility] Determination of erythrocyte mean corpuscular volume (MCV)Ordered By: Dr. Ochoa on 12-30-2022 MCV (RBC) [Entitic vol] 87.2 fL 80-[address] [facility] Hematocrit Auto (Bld) [Volum e fraction]Ordered By: Dr. Ochoa on 12-30-2022 Hematocrit (Bld) [Volume fraction] 38.0 % 40-54 [facility] INR in Blood by Coagulation assayOrdered By: Dr. Ochoa on 12-30-2022 INR Coag (Bld) [Relative time] 1.3 {INR} [facility] Influenza virus A and B and SARS-CoV-2 (COVID-19) Ag panel - Upper respiratory specimOrdered By: Chris Ochoa on 12-30-2022 SARS-CoV-2 & FLU Antigen (Rapid) Influenzae A [facility] Ketones Test strip Ql (U)Ord ered By: Dr. Ochoa on 12-30-2022 Ketones Ql (U) Negative Negative [facility] Laboratory - Chemistry and C hemistry - challengeOrdered By: Dr. Ochoa on 12-30-2022 ALP [Catalytic activity/Vol] 53 U/L 45-117 [facility] ALT [Catalytic activity/Vol] 22 U/L 16-61 [facility] CO2 [Moles/Vol] 25.0 mmol/L 21.0-32.0 [facility] Globulin (S) [Mass/Vol] 4.7 g/dL 2.2-4.[address] [facility] Urea nitrogen/Creatinine [Mass ratio] 22.0 mg/mg 10-20 [facility] Laboratory - CoagulationOrde red By: Dr. Ochoa on 12-30-2022 aPTT Coag (Bld) [Time] 38.9 s 24.1-36.2 [facility] PT Coag (PPP) [Time] 15.8 s 11.7-14.9 [facility] Laboratory - Hematology and Cell countsOrdered By: Dr. Ochoa on 12-30-2022 Erythrocyte distribution width (RBC) [Entitic vol] 50.5 fL 35.1-43.9 [facility] Erythrocyte distribution width (RBC) [Ratio] 15.9 % 11.6-14.6 [facility] Immature granulocytes/100 WBC (Bld) 0.500 % 0.0-0.9 [facility] Comment on above: IG% - Immature Granu locytes (promyelocytes, myelocytes and metamyelocytes) > 1% indicates that a LEFT SHIFT is Present. MCH (RBC) [Entitic mass] 27.8 pg 27.0-32.0 [facility] Nucleated RBC/100 WBC (Bld) [Ratio] 0 % 0-5 [facility] Laboratory - Microbiology an d Antimicrobial susceptibilityOrdered By: Chris Ochoa on 12-30-2022 Bacteria identified Cx Nom (Bld) No growth in 5 days. [facility] MCHC Auto (RBC) [Mass/Vol]Or dered By: Dr. Ochoa on 12-30-2022 MCHC (RBC) [Mass/Vol] 31.8 g/dL 32-36 [facility] Mucus LM Ql (Urine sed)Order ed By: Dr. Ochoa on 12-30-2022 Mucus Ql (Urine sed) 0 SEEN /hpf [facility] Nitrite Test strip Ql (U)Ord ered By: Dr. Ochoa on 12-30-2022 Nitrite Ql (U) Negative Negative [facility] No Panel InformationOrdered By: Dr. Ochoa on 12-30-2022 Estimated Creatinine Clearance Calc 27.91 ml/min [facility] Estimated GFR (MDRD) Amer 42 mL/min >60 [facility] Comment on above: GFR Calc Estimated GFR (MDRD) Non-Af Amer 35 mL/min >60 [facility] Comment on above: Non- GFR Calc Platelets bldOrdered By: Dr. Ochoa on 12-30-2022 Platelets (Bld) [#/Vol] 210 10*3/uL 150-450 [facility] Protein Test strip Ql (U)Ord ered By: Dr. Ochoa on 12-30-2022 Protein Ql (U) 100 mg/dl Negative [facility] Serum or plasma albumin kings[place] urement (mass/volume)Ordered By: Dr. Ochoa on 12-30-2022 Albumin [Mass/Vol] 3.5 g/dL 3.2-5.0 [facility] Serum or plasma albumin/glob ulin mass ratioOrdered By: Dr. Ochoa on 12-30-2022 Albumin/Globulin [Mass ratio] 0.7 {ratio} 0.9-2.4 [facility] Serum or plasma calcium kings[place] urement (mass/volume)Ordered By: Dr. Ochoa on 12-30-2022 Calcium [Mass/Vol] 9.2 mg/dL 8.5-10.1 [facility] Serum or plasma creatinine m easurement (mass/volume)Ordered By: Dr. Ochoa on 12-30-2022 Creatinine [Mass/Vol] 2.00 mg/dL 0.70-1.30 [facility] Comment on above: The validity of the calculated GFR & GFRAA in patients over 70 years has not been determined. Clinical correlation is essential. Serum or plasma urea nitroge n measurement (mass/volume)Ordered By: Dr. Ochoa on 12-30-2022 Urea nitrogen [Mass/Vol] 44 mg/dL 7-18 [facility] Squamous epithelial cells de tection in urine sediment by light microscopyOrdered By: Dr. Ochoa on 12-30-2022 Epithelial cells.squamous LM Ql (Urine sed) 0 SEEN /hpf 0-5 [facility] Thin prep Papanicolaou smear with manual screeningOrdered By: Dr. Ochoa on 12-30-2022 Thin prep Papanicolaou smear with manual screening 22 U/L 15-37 [facility] Thin prep Papanicolaou smear with manual screening 7 5-15 [facility] Urine blood detectionOrdered By: Dr. Ochoa on 12-30-2022 RBC Ql (U) 25 /ul Negative [facility] RBC Ql (U) 0 SEEN /hpf 0-5 [facility] Urine clarityOrdered By: Dr. Ochoa on 12-30-2022 Clarity (U) Clear Clear [facility] Urine color determinationOrd ered By: Dr. Ochoa on 12-30-2022 Color (U) Yellow Yellow [facility] Urine glucose detectionOrder ed By: Dr. Ochoa on 12-30-2022 Glucose Ql (U) Normal mg/dl Normal [facility] Urine leukocyte esterase det ection by dipstickOrdered By: Dr. Ochoa on 12-30-2022 Leukocyte esterase Test strip Ql (U) 25 /ul Negative [facility] Urine pHOrdered By: Dr. Amy chowdhury on 12-30-2022 pH (U) 7.0 [pH] 5.0 - 8.0 [facility] Urine sediment bacteria coun t by microscopy (number/high power field)Ordered By: Dr. Ochoa on 12-30-2022 Bacteria LM.HPF (Urine sed) [#/Area] 0 /[HPF] None Seen [facility] Urine specific gravity measu rementOrdered By: Dr. Ochoa on 12-30-2022 Specific gravity (U) [Rel density] 1.005 1.002-1.03 0 [facility] Urobilinogen Auto test strip Ql (U)Ordered By: Dr. Ochoa on 12-30-2022 Urobilinogen Ql (U) Normal mg/dl Normal [facility] Absolute lymphocyte countOrd ered By: Dr. Zamora on 10-16-2022 Lymphocytes Auto (Unsp spec) [#/Vol] 1.25 10*3/uL 0.83-4.51 [facility] Basophil percentageOrdered B y: Dr. Zamora on 10-16-2022 Basophils/100 WBC (Bld) 0.6 % 0-[address] [facility] Bilirubin [Mass/Vol] 0.30 mg/dL 0.20-1.00 [facility] Comment on above: For patients on eltr ombopag therapy, use of Dimension Java TBIL is not recommended. Chloride [Moles/Vol] 106 mmol/L 98-107 [facility] Eosinophils/100 WBC (Bld) 1.4 % 0-5 [facility] Glucose [Mass/Vol] 225 mg/dL 74-106 [facility] Comment on above: Glucose result great er than or equal to 200 mg/dLsuggests DIABETES MELLITUS per A.D.A. criteria. LDH [Catalytic activity/Vol] 135 U/L 87-241 [facility] Neutrophils (Bld) [#/Vol] 5.1 10*3/uL 2.0-7.7 [facility] Neutrophils/100 WBC (Bld) 70.2 % 47-70 [facility] Potassium [Moles/Vol] 4.5 mmol/L 3.5-5.1 [facility] Protein [Mass/Vol] 7.8 g/dL 6.4-8.2 [facility] Sodium [Moles/Vol] 139 mmol/L 136-145 [facility] WBC (Bld) [#/Vol] 7.3 10*3/uL 4.4-11.0 [facility] Blood erythrocytes count (nu mber/volume)Ordered By: Dr. Zamora on 10-16-2022 RBC (Bld) [#/Vol] 3.94 10*6/uL 4.6-6.2 [facility] Blood hemoglobin measurement (mass/volume)Ordered By: Dr. Zamora on 10-16-2022 Hemoglobin (Bld) [Mass/Vol] 11.5 g/dL 13.0-16.5 [facility] Blood lymphocytes/100 leukoc ytesOrdered By: Dr. Zamora on 10-16-2022 Lymphocytes/100 WBC (Bld) 17.2 % 19-41 [facility] Blood monocytes/100 leukocyt esOrdered By: Dr. Zamora on 10-16-2022 Monocytes/100 WBC (Bld) 9.8 % 0-[address] [facility] Blood platelet mean volumeOr dered By: Dr. Zamora on 10-16-2022 Platelet mean volume (Bld) [Entitic vol] 9.9 fL 6.2-12.0 [facility] Determination of erythrocyte mean corpuscular volume (MCV)Ordered By: Dr. Zamora on 10-16-2022 MCV (RBC) [Entitic vol] 91.1 fL 80-[address] [facility] Hematocrit Auto (Bld) [Volum e fraction]Ordered By: Dr. Zamora on 10-16-2022 Hematocrit (Bld) [Volume fraction] 35.9 % 40-54 [facility] Laboratory - Chemistry and C hemistry - challengeOrdered By: Dr. Zamora on 10-16-2022 ALP [Catalytic activity/Vol] 52 U/L 45-117 [facility] ALT [Catalytic activity/Vol] 19 U/L 16-61 [facility] CO2 [Moles/Vol] 26.0 mmol/L 21.0-32.0 [facility] Globulin (S) [Mass/Vol] 4.5 g/dL 2.2-4.[address] [facility] Urea nitrogen/Creatinine [Mass ratio] 17.5 mg/mg 10-20 [facility] Laboratory - Hematology and Cell countsOrdered By: Dr. Zamora on 10-16-2022 Erythrocyte distribution width (RBC) [Entitic vol] 50.4 fL 35.1-43.9 [facility] Erythrocyte distribution width (RBC) [Ratio] 15.2 % 11.6-14.6 [facility] Immature granulocytes/100 WBC (Bld) 0.800 % 0.0-0.9 [facility] Comment on above: IG% - Immature Granu locytes (promyelocytes, myelocytes and metamyelocytes) > 1% indicates that a LEFT SHIFT is Present. MCH (RBC) [Entitic mass] 29.2 pg 27.0-32.0 [facility] Nucleated RBC/100 WBC (Bld) [Ratio] 0 % 0-5 [facility] MCHC Auto (RBC) [Mass/Vol]Or dered By: Dr. Zamora on 10-16-2022 MCHC (RBC) [Mass/Vol] 32.0 g/dL 32-36 [facility] No Panel InformationOrdered By: Dr. Zamora on 10-16-2022 Estimated GFR (MDRD) Amer 45 mL/min >60 [facility] Comment on above: GFR Calc Estimated GFR (MDRD) Non-Af Amer 37 mL/min >60 [facility] Comment on above: Non- GFR Calc Platelets bldOrdered By: Dr. Zamora on 10-16-2022 Platelets (Bld) [#/Vol] 193 10*3/uL 150-450 [facility] Serum or plasma albumin kingsley urement (mass/volume)Ordered By: Dr. Zamora on 10-16-2022 Albumin [Mass/Vol] 3.3 g/dL 3.2-5.0 [facility] Serum or plasma albumin/glob ulin mass ratioOrdered By: Dr. Zamora on 10-16-2022 Albumin/Globulin [Mass ratio] 0.7 {ratio} 0.9-2.4 [facility] Serum or plasma calcium kingsley urement (mass/volume)Ordered By: Dr. Zamora on 10-16-2022 Calcium [Mass/Vol] 9.3 mg/dL 8.5-10.1 [facility] Serum or plasma creatinine m easurement (mass/volume)Ordered By: Dr. Zamora on 10-16-2022 Creatinine [Mass/Vol] 1.89 mg/dL 0.70-1.30 [facility] Comment on above: The validity of the calculated GFR & GFRAA in patients over 70 years has not been determined. Clinical correlation is essential. Serum or plasma urea nitroge n measurement (mass/volume)Ordered By: Dr. Zamora on 10-16-2022 Urea nitrogen [Mass/Vol] 33 mg/dL 7-18 [facility] Thin prep Papanicolaou smear with manual screeningOrdered By: Dr. Zamora on 10-16-2022 Thin prep Papanicolaou smear with manual screening 17 U/L 15-37 [facility] Thin prep Papanicolaou smear with manual screening 7 5-15 [facility] Basophil percentageOrdered B y: Dr. Zamora on 10-09-2022 Creatinine [Mass/Vol] 1.4 mg/dL 0.70-1.30 [facility] Laboratory - Chemistry and C hemistry - challengeOrdered By: Dr. Zamora on 10-09-2022 GFR/1.73 sq M.predicted among non-blacks MDRD (S/P/Bld) [Vol rate/Area] 52.0000 mL/min/{1.73_m2} >60 [facility] Culture, urineOrdered By: St gillian Glynn on 10-04-2022 Bacteria identified Cx Nom (U) Staphylococcus epidermidis [facility] Bacteria identified Cx Nom (U) GNR lactose rn burn [facility] Bilirubin Test strip Ql (U)O rdered By: Bonny Glynn on 10-02-2022 Bilirubin Ql (U) Negative Negative [facility] Ketones Test strip Ql (U)Ord ered By: Bonny Glynn on 10-02-2022 Ketones Ql (U) Negative Negative [facility] Nitrite Test strip Ql (U)Ord ered By: Bonny Glynn on 10-02-2022 Nitrite Ql (U) Positive Negative [facility] Protein Test strip Ql (U)Ord ered By: Bonny Glynn on 10-02-2022 Protein Ql (U) 100 mg/dl Negative [facility] Urine blood detectionOrdered By: Bonny Glynn on 10-02-2022 RBC Ql (U) 25 /ul Negative [facility] Urine clarityOrdered By: Ysabel Glynn on 10-02-2022 Clarity (U) Cloudy Clear [facility] Urine color determinationOrd ered By: Bonny Glynn on 10-02-2022 Color (U) Yellow Yellow [facility] Urine glucose detectionOrder ed By: Bonny Glynn on 10-02-2022 Glucose Ql (U) 50 mg/dl Normal [facility] Urine leukocyte esterase det ection by dipstickOrdered By: Bonny Glynn on 10-02-2022 Leukocyte esterase Test strip Ql (U) 500 /ul Negative [facility] Urine pHOrdered By: Bonny orosco on 10-02-2022 pH (U) 6.0 [pH] 5.0 - 8.0 [facility] Urine specific gravity measu rementOrdered By: Bonny Glynn on 10-02-2022 Specific gravity (U) [Rel density] 1.010 1.002-1.03 0 [facility] Urobilinogen Auto test strip Ql (U)Ordered By: Bonny Glynn on 10-02-2022 Urobilinogen Ql (U) Normal mg/dl Normal [facility] CNPLigia 07-28-2022 CNPN Telephone (UCWSTR) -- KADYPEDRO ([id number]) 1945 M Date Time Provider Department 07/28/22 [...] Status:Closed by STEVEN RODRIGUEZ on 08/09/22 Normal [facility] Anaerobic cultureOrdered By: Bonny Glynn on 07-21-2022 Bacteria identified Anaer cx Nom (Unsp spec) No anaerobic bacteria isolated. [facility] Bacteria identified Cx Nom ( Wound)Ordered By: Bonny Glynn on 07-20-2022 Wound Culture Staphylococcus pseudintermediu [facility] Gram stain for investigation of transfusion reactionOrdered By: Bonny Glynn on 07-19-2022 Microscopic observation Gram stain Nom (Unsp spec) [facility] No Panel InformationOrdered By: Dr. Choi on 06-01-2022 Estimated GFR (MDRD) Amer 63 mL/min >60 [facility] Comment on above: GFR Calc Estimated GFR (MDRD) Non-Af Amer 52 mL/min >60 [facility] Comment on above: Non- GFR Calc Serum or plasma creatinine m easurement (mass/volume)Ordered By: Dr. Choi on 06-01-2022 Creatinine [Mass/Vol] 1.40 mg/dL 0.70-1.30 [facility] Comment on above: The validity of the calculated GFR & GFRAA in patients over 70 years has not been determined. Clinical correlation is essential. Basophil percentageon 2021 Basophil percentage < 0.9 mg/dL 0.70-1.30 [facility] Work Phone: No Panel Informationon 05-22 Bedside Estimated GFR (eGFR) > 60.0000 mL/min >60 [facility] Work Phone: Absolute lymphocyte counton 04-14-2022 Lymphocytes Auto (Unsp spec) [#/Vol] 0.64 10*3/uL 0.83-4.51 [facility] Work Phone: Basophil percentageon 2021 Basophil percentage 0 SEEN /hpf 0-5 [facility] Work Phone: Basophils/100 WBC (Bld) 0.3 % 0-[address] [facility] Work Phone: Bilirubin [Mass/Vol] 0.50 mg/dL 0.20-1.00 [facility] Work Phone: [phone] Comment on above: For patients on eltr ombopag therapy, use of Dimension Java TBIL is not recommended. Chloride [Moles/Vol] 103 mmol/L 98-107 [facility] Work Phone: [phone] Eosinophils/100 WBC (Bld) 0.5 % 0-5 [facility] Work Phone: [phone] Glucose [Mass/Vol] 46 mg/dL 74-106 [facility] Work Phone: [phone] Comment on above: Glucose result less than 50 mg/dL suggests HYPOGLYCEMIA. Neutrophils (Bld) [#/Vol] 5.0 10*3/uL 2.0-7.7 [facility] Work Phone: [phone] Neutrophils/100 WBC (Bld) 76.1 % 47-70 [facility] Work Phone: [phone] Potassium [Moles/Vol] 4.2 mmol/L 3.5-5.1 [facility] Work Phone: [phone] Protein [Mass/Vol] 8.2 g/dL 6.4-8.2 [facility] Work Phone: [phone] Sodium [Moles/Vol] 136 mmol/L 136-145 [facility] Work Phone: [phone] WBC (Bld) [#/Vol] 6.6 10*3/uL 4.4-11.0 [facility] Work Phone: Bilirubin Test strip Ql (U)o n 04-14-2022 Bilirubin Ql (U) Negative Negative [facility] Work Phone: [phone] Blood erythrocytes count (nu mber/volume)on 04-14-2022 RBC (Bld) [#/Vol] 5.00 10*6/uL 4.6-6.2 [facility] Work Phone: [phone] Blood hemoglobin measurement (mass/volume)on 04-14-2022 Hemoglobin (Bld) [Mass/Vol] 13.9 g/dL 13.0-16.5 [facility] Work Phone: [phone] Blood lymphocytes/100 leukoc yteson 04-14-2022 Lymphocytes/100 WBC (Bld) 9.7 % 19-41 [facility] Work Phone: Blood monocytes/100 leukocyt eson 04-14-2022 Monocytes/100 WBC (Bld) 12.3 % 0-[address] [facility] Work Phone: [phone] Blood platelet mean volumeon 04-14-2022 Platelet mean volume (Bld) [Entitic vol] 10.5 fL 6.2-12.0 [facility] Work Phone: [phone] Determination of erythrocyte mean corpuscular volume (MCV)on 04-14-2022 MCV (RBC) [Entitic vol] 86.4 fL 80-[address] [facility] Work Phone: Glucose Glucometer (BldC) [M ass/Vol]on 04-14-2022 Glucose [Mass/Vol] 113 mg/dL 74-106 [facility] Work Phone: Comment on above: MANAGEMENT OF PATIEN T CARE PER NURSING PROTOCOL Hematocrit Auto (Bld) [Volum e fraction]on 04-14-2022 Hematocrit (Bld) [Volume fraction] 43.2 % 40-54 [facility] Work Phone: INR in Blood by Coagulation assayon 04-14-2022 INR Coag (Bld) [Relative time] 1.1 {INR} [facility] Work Phone: [phone] Ketones Test strip Ql (U)on 04-14-2022 Ketones Ql (U) 5 mg/dl Negative [facility] Work Phone: [phone] Laboratory - Chemistry and C hemistry - challengeon 04-14-2022 ALP [Catalytic activity/Vol] 63 U/L 45-117 [facility] Work Phone: [phone] ALT [Catalytic activity/Vol] 29 U/L 16-61 [facility] Work Phone: [phone] CO2 [Moles/Vol] 25.0 mmol/L 21.0-32.0 [facility] Work Phone: Globulin (S) [Mass/Vol] 5.1 g/dL 2.2-4.[address] [facility] Work Phone: Urea nitrogen/Creatinine [Mass ratio] 37.6 mg/mg 10-20 [facility] Work Phone: Laboratory - Coagulationon 0 04-14-2022 PT Coag (PPP) [Time] 14.0 s 11.7-14.9 [facility] Work Phone: Laboratory - Hematology and Cell countson 04-14-2022 Erythrocyte distribution width (RBC) [Entitic vol] 49.0 fL 35.1-43.9 [facility] Work Phone: Erythrocyte distribution width (RBC) [Ratio] 15.4 % 11.6-14.6 [facility] Work Phone: Immature granulocytes/100 WBC (Bld) 1.100 % 0.0-0.9 [facility] Work Phone: Comment on above: IG% - Immature Granu locytes (promyelocytes, myelocytes and metamyelocytes) > 1% indicates that a LEFT SHIFT is Present. MCH (RBC) [Entitic mass] 27.8 pg 27.0-32.0 [facility] Work Phone: Nucleated RBC/100 WBC (Bld) [Ratio] 0 % 0-5 [facility] Work Phone: MCHC Auto (RBC) [Mass/Vol]on 04-14-2022 MCHC (RBC) [Mass/Vol] 32.2 g/dL 32-36 [facility] Work Phone: [phone] Mucus LM Ql (Urine sed)on Mucus Ql (Urine sed) 0 SEEN /hpf [facility] Work Phone: Nitrite Test strip Ql (U)on 04-14-2022 Nitrite Ql (U) Negative Negative [facility] Work Phone: No Panel Informationon 04-14 Estimated Creatinine Clearance Calc 35.56 ml/min [facility] Work Phone: Estimated GFR (MDRD) Amer 55 mL/min >60 [facility] Work Phone: Comment on above: GFR Calc Estimated GFR (MDRD) Non-Af Amer 46 mL/min >60 [facility] Work Phone: Comment on above: Non- GFR Calc Platelets bldon 04-14-2022 Platelets (Bld) [#/Vol] 293 10*3/uL 150-450 [facility] Work Phone: Platelets (Bld) [#/Vol] 287 10*3/uL 150-450 [facility] Work Phone: Protein Test strip Ql (U)on 04-14-2022 Protein Ql (U) 30 mg/dl Negative [facility] Work Phone: Serum or plasma albumin kingsley urement (mass/volume)on 04-14-2022 Albumin [Mass/Vol] 3.1 g/dL 3.2-5.0 [facility] Work Phone: Serum or plasma albumin/glob ulin mass ratioon 04-14-2022 Albumin/Globulin [Mass ratio] 0.6 {ratio} 0.9-2.4 [facility] Work Phone: Serum or plasma calcium kingsley urement (mass/volume)on 04-14-2022 Calcium [Mass/Vol] 9.9 mg/dL 8.5-10.1 [facility] Work Phone: Serum or plasma creatinine m easurement (mass/volume)on 04-14-2022 Creatinine [Mass/Vol] 1.57 mg/dL 0.70-1.30 [facility] Work Phone: Comment on above: The validity of the calculated GFR & GFRAA in patients over 70 years has not been determined. Clinical correlation is essential. Serum or plasma urea nitroge n measurement (mass/volume)on 04-14-2022 Urea nitrogen [Mass/Vol] 59 mg/dL 7-18 [facility] Work Phone: Squamous epithelial cells de tection in urine sediment by light microscopyon 04-14-2022 Epithelial cells.squamous LM Ql (Urine sed) 0-5 SEEN /hpf 0-5 [facility] Work Phone: Thin prep Papanicolaou smear with manual screeningon 04-14-2022 Thin prep Papanicolaou smear with manual screening 30 U/L 15-37 [facility] Work Phone: Thin prep Papanicolaou smear with manual screening 8 5-15 [facility] Work Phone: [phone] Urine blood detectionon - RBC Ql (U) Negative Negative [facility] Work Phone: [phone] RBC Ql (U) 0 SEEN /hpf 0-5 [facility] Work Phone: Urine clarityon 04-14-2022 Clarity (U) Clear Clear [facility] Work Phone: Urine color determinationon 04-14-2022 Color (U) Yellow Yellow [facility] Work Phone: Urine glucose detectionon Glucose Ql (U) Normal mg/dl Normal [facility] Work Phone: Urine leukocyte esterase det ection by dipstickon 04-14-2022 Leukocyte esterase Test strip Ql (U) 25 /ul Negative [facility] Work Phone: [phone] Urine pHon 04-14-2022 pH (U) 6.0 [pH] 5.0 - 8.0 [facility] Work Phone: Urine sediment bacteria coun t by microscopy (number/high power field)on 04-14-2022 Bacteria LM.HPF (Urine sed) [#/Area] 0 /[HPF] None Seen [facility] Work Phone: [phone] Urine specific gravity measu rementon 04-14-2022 Specific gravity (U) [Rel density] 1.010 1.002-1.03 0 [facility] Work Phone: [phone] Urobilinogen Auto test strip Ql (U)on 04-14-2022 Urobilinogen Ql (U) Normal mg/dl Normal [facility] Work Phone: Basophil percentageon 2021 Creatinine [Mass/Vol] 1.4 mg/dL 0.70-1.30 [facility] Work Phone: Laboratory - Chemistry and C hemistry - challengeon 04-12-2022 GFR/1.73 sq M.predicted among non-blacks MDRD (S/P/Bld) [Vol rate/Area] 50.0000 mL/min/{1.73_m2} >60 [facility] Work Phone: CNPLigia 04-06-2022 [facility] Telephone ([facility]) -- PEDRO HILLMAN ([id number]) 1945 M Date Time Provider Department 04/06/22 [facility] During your visit today, we recorded [...] Signed Still unable to reach patient and call or contact centre manager is spouse with same number.Sigrid Mock 04/07/2022 5:49 PM Signed Unable to reach patient. Mailbox full/Mailbox not set up/ Number incorrect. Please try again later. Jenny Mock 04/08/2022 9:23 AM Signed left message on machine to give call back, different number from pharmacy. [phone]. Jenny Mock 04/08/2022 2:56 PM Signed Notified [...] Status:Closed by JENNY MOCK on 04/08/22 Normal [facility] Bacteria Ur Culton 2 Bacteria identified Cx Nom (U) [id number] Abnormal [facility] Comment on above: Order Comment: Speci men Type: URINE SPECIMEN Ordering Facility: [facility] Address: [address] [place] [id number] Result Comment: >=10 0,000 CFU/ml Streptococcus mitis-oralis group No further workup Performed By: #### 6 30-4 #### [facility] CLIA [id number] [address] [place] [address] [place] CNOVon 04-05-2022 CNOV Office Visit ([facility]WSTR ) -- KADYPEDRO DIAZ ([id number]) 1945 M Date Time Provider Department 04/05/22 1:15 PM STEVEN RODRIGUEZ [facility] During your visit today, we recorded the following information about you: Temperature Pulse Respiration Blood pressure 101.6 degrees 76/minute 16/minute 122/76 Weight 87.1 kg Steven Rodriguez APRN.STATION SUPERINTENDENT 04/05/2022 3:51 PM Signed Subjective HPI Pedro [...] 04-05-2022 [facility] Telephone ([facility]WSTR) -- PEDRO HILLMAN ([id number]) 1945 M Date Time Provider Department 04/05/22 [facility] During your visit today, we recorded the following information about you: Steven Rodriguez APRN.CNP 04/05/2022 2:59 PM Signed Radiology report faxed to patient's PCP Dr. Tonio Fajardo at [phone]. Confirmation of fax received. Patient was advised to call Dr. Fajardo today for a follow up appointment. Steven Rodriguez APRN.STATION SUPERINTENDENT Allergies As of Date: 04/05/2022 Noted Allergy [...] Status:Closed by STEVEN RODRIGUEZ on 04/05/22 Normal [facility] No Panel InformationOrdered By: [facility] Provider on 04-05-2022 Radiology Result ACTIONABLE Abnormal [facility] Comment on above: This report [...] BILIRUBIN UA (POCT) Negative Negative [facility] CLARITY UA (POCT) Cloudy [facility] COLOR UA (POCT) Dark yellow [facility] GLUCOSE UA (POCT) Negative Negative mg/dL [facility] HEMOGLOBIN/BLOOD UA (POCT) Small Abnormal Negative [facility] KETONE UA (POCT) Negative Negative mg/dL [facility] LEUKOCYTES UA (POCT) Large Abnormal Negative [facility] NITRITE UA (POCT) Negative Negative [facility] PH UA (POCT) 6.0 4.5 - 8.0 [facility] Protein Ql (U) 100 mg/dL Abnormal Negative mg/dL [facility] SPECIFIC GRAVITY UA (POCT) 1.020 1.005 - 1.030 [facility] UROBILINOGEN UA (POCT) 0.2 E.U./dL Umm l E.U./dL [facility] XR CHEST 2V FRONTAL/LATon XR CHEST [...] be communicated with the ordering provider via [employer] staff message or phone message by [employer] within 2 business days of report finalization. Algorithms for management of incidental imaging findings can be found on the [facility] Intranet Sharepoint site at: [email or web address] ngs%[email or web address]/A [email or web address] Manager Council: PSCB Transcribe Date/Time: Apr 05 2022 2:11P Dictated by : SANDEEP ORTIZ MD This examination was interpreted and the report reviewed and electronically signed by: SANDEEP ORTIZ MD on Apr 05 2022 2:13PM EST [id number] ACTIONABLE Invalid Interpretation Code [facility] XR Chest PA and LateralOrder ed By: [facility] Provider on 04-05-2022 Interpretation and review of laboratory results Abnormal [facility] XR Chest PA and Lateralon IMPRESSION: [...] be communicated with the ordering provider via [employer] staff message or phone message by [employer] within 2 business days of report finalization. Algorithms for management of incidental imaging findings can be found on the [facility] Intranet Sharepoint site at: [email or web address] [email or web address]%[email or web address]/A [email or web address] Manager Council: JONATHAN Transcribe Date/Time: Apr 05 2022 2:11P [...] the thoracic spine. DIVISION OF RADIOLOGY Provider, [facility] - 04/05/2022 * * *Final [...] be communicated with the ordering provider via [employer] staff message or phone message by [employer] within 2 business days of report finalization. Algorithms for management of incidental imaging findings can be found on the [facility] Intranet Sharepoint site at: [email or web address] [email or web address]/[email or web address] [email or web address] Manager Council: JONATHAN Transcribe Date/Time: Apr 05 2022 2:11P Dictated by : SANDEEP ORITZ MD This examination was interpreted and the report reviewed and electronically signed by: SANDEEP ORTIZ MD on Apr 05 2022 2:13PM EST [facility] Radiology Study observation (narrative) [facility] Anaerobic culture Bacteria identified Anaer cx Nom (Unsp spec) No anaerobic bacteria isolated. [facility] Work Phone: Bacteria identified Anaer cx Nom (Unsp spec) Anaerobic Culture Anaerobic cocci [facility] Work Phone: Bacteria identified Cx Nom ( Wound) Wound Culture Staphylococcus pseudintermediu [facility] Work Phone: Wound Culture Staphylococcus saprophyticus [facility] Work Phone: Gram stain for investigation of transfusion reaction Microscopic observation Gram stain Nom (Unsp spec) [facility] Work Phone: Vital Signs Date Time Vital Sign Value Performing Clinician Facility 04-19-2025 11:03-0400 Body temperature 97.9 [degF] Dr. Tonio Fajardo DO Work Phone: [facility] 04-19-2025 11:03-0400 Diastolic blood pressure 66 mm[Hg] Dr. Tonio Fajardo DO Work Phone: [facility] 04-19-2025 11:03-0400 Heart rate 102 /min Dr. Tonio Fajardo DO Work Phone: [facility] 04-19-2025 11:03-0400 Respiratory rate 16 /min Dr. Tonio Fajardo DO Work Phone: [facility] 04-19-2025 11:03-0400 SaO2% (BldA) [Mass fraction] 100 % Dr. Tonio Fajardo DO Work Phone: [facility] 04-19-2025 11:03-0400 Systolic blood pressure 126 mm[Hg] Dr. Tonio Fajardo DO Work Phone: [facility] 04-19-2025 09:54-0400 Diastolic blood pressure 68 mm[Hg] Dr. Tonio Fajardo DO Work Phone: [facility] 04-19-2025 09:54-0400 Heart rate 103 /min Dr. Tonio Fajardo DO Work Phone: [facility] 04-19-2025 09:54-0400 Systolic blood pressure 85 mm[Hg] Dr. Tonio Fajardo DO Work Phone: [facility] 04-19-2025 09:45-0400 Inhaled oxygen flow rate 3 L/min Dr. Tonio Fajardo DO Work Phone: [facility] 04-19-2025 09:45-0400 Respiratory rate 20 /min Dr. Tonio Faajrdo DO Work Phone: [facility] 04-19-2025 09:45-0400 SaO2% (BldA) [Mass fraction] 100 % Dr. Tonio Fajardo DO Work Phone: [facility] 04-19-2025 08:22-0400 Body height 167.[address] Tonio Fajardo DO Work Phone: [facility] 04-19-2025 08:22-0400 Body mass index (BMI) [Ratio] 25.7 kg/m2 Dr. Tonio Fajardo DO Work Phone: [facility] 04-19-2025 08:22-0400 Body temperature 97.9 [degF] Dr. Tonio Fajardo DO Work Phone: [facility] 04-19-2025 08:22-0400 Body weight 72.[address] Tonio Fajardo DO Work Phone: [facility] 04-19-2025 08:08-0400 Heart rate 102 /min Dr. Tonio Fajardo DO Work Phone: [facility] 04-19-2025 07:54-0400 Body temperature 97.4 [degF] Dr. Tonio Fajardo DO Work Phone: [facility] 04-19-2025 07:54-0400 Diastolic blood pressure 67 mm[Hg] Dr. Tonio Fajardo DO Work Phone: [facility] 04-19-2025 07:54-0400 Inhaled oxygen flow rate 3 L/min Dr. Tonio Fajardo DO Work Phone: [facility] 04-19-2025 07:54-0400 Respiratory rate 18 /min Dr. Tonio Fajardo DO Work Phone: [facility] 04-19-2025 07:54-0400 SaO2% (BldA) [Mass fraction] 100 % Dr. Tonio Fajardo DO Work Phone: [facility] 04-19-2025 07:54-0400 Systolic blood pressure 118 mm[Hg] Dr. Tonio Fajardo DO Work Phone: [facility] 04-18-2025 11:58-0400 Body weight 67.[address] Tonio Fajardo DO Work Phone: [facility] 04-17-2025 18:17-0400 Body mass index (BMI) [Ratio] 23.8 kg/m2 Dr. Tonio Fajardo DO Work Phone: [facility] 04-13-2025 02:37-0400 Inhaled oxygen flow rate 15 L/min Dr. Tonio Fajardo DO Work Phone: [facility] 04-13-2025 02:37-0400 SaO2% (BldA) [Mass fraction] 100 % Dr. Tonio Fajardo DO Work Phone: [facility] 04-13-2025 00:56-0400 Body temperature 97.8 [degF] Dr. Tonio Fajardo DO Work Phone: [facility] 04-13-2025 00:56-0400 Diastolic blood pressure 71 mm[Hg] Dr. Tonio Fajardo DO Work Phone: [facility] 04-13-2025 00:56-0400 Heart rate 106 /min Dr. Tonio Fajardo DO Work Phone: [facility] 04-13-2025 00:56-0400 Respiratory rate 21 /min Dr. Tonio Fajardo DO Work Phone: [facility] 04-13-2025 00:56-0400 Systolic blood pressure 129 mm[Hg] Dr. Tonio Fajardo DO Work Phone: [facility] 04-12-2025 23:03-0400 Body temperature 97.8 [degF] Dr. Tonio Fajardo DO Work Phone: [facility] 04-12-2025 23:03-0400 Diastolic blood pressure 80 mm[Hg] Dr. Tonio Fajardo DO Work Phone: [facility] 04-12-2025 23:03-0400 Heart rate 109 /min Dr. Tonio Fajardo DO Work Phone: [facility] 04-12-2025 23:03-0400 Respiratory rate 21 /min Dr. Tonio Fajardo DO Work Phone: [facility] 04-12-2025 23:03-0400 SaO2% (BldA) [Mass fraction] 100 % Dr. Tonio Fajardo DO Work Phone: [facility] 04-12-2025 23:03-0400 Systolic blood pressure 142 mm[Hg] Dr. Tonio Fajardo DO Work Phone: [facility] 04-12-2025 22:00-0400 Inhaled oxygen flow rate 15 L/min Dr. Tonio Fajardo DO Work Phone: [facility] 04-12-2025 18:05-0400 Body height 167.[address] Tonio Fajardo DO Work Phone: [facility] 04-12-2025 18:05-0400 Body mass index (BMI) [Ratio] 25.4 kg/m2 Dr. Tonio Fajardo DO Work Phone: [facility] 04-12-2025 18:05-0400 Body weight 71.[address] Tonio Fajardo DO Work Phone: [facility] 04-12-2025 16:46-0400 Heart rate 115 /min Dr. Tonio Fajardo DO Work Phone: [facility] 04-12-2025 15:40-0400 Diastolic blood pressure 74 mm[Hg] Dr. Tonio Fajardo DO Work Phone: [facility] 04-12-2025 15:40-0400 Inhaled oxygen flow rate 3 L/min Dr. Tonio Fajardo DO Work Phone: [facility] 04-12-2025 15:40-0400 Respiratory rate 22 /min Dr. Tonio Fajardo DO Work Phone: [facility] 04-12-2025 15:40-0400 SaO2% (BldA) [Mass fraction] 96 % Dr. Tonio Fajardo DO Work Phone: [facility] 04-12-2025 15:40-0400 Systolic blood pressure 146 mm[Hg] Dr. Tonio Fajardo DO Work Phone: [facility] 04-12-2025 08:52-0400 Body temperature 96.7 [degF] Dr. Tonio Fajardo DO Work Phone: [facility] 04-11-2025 12:48-0400 Body weight 70.[address] Tonio Fajardo DO Work Phone: [facility] 04-10-2025 23:00-0400 Body mass index (BMI) [Ratio] 25.2 kg/m2 Dr. Tonio Fajardo DO Work Phone: [facility] 04-10-2025 16:21-0400 Body temperature 98.6 [degF] Dr. Tonio Fajardo DO Work Phone: [facility] 04-10-2025 16:21-0400 Diastolic blood pressure 82 mm[Hg] Dr. Tonio Fajardo DO Work Phone: [facility] 04-10-2025 16:21-0400 Heart rate 106 /min Dr. Tonio Fajardo DO Work Phone: [facility] 04-10-2025 16:21-0400 Inhaled oxygen flow rate 3 L/min Dr. Tonio Fajardo DO Work Phone: [facility] 04-10-2025 16:21-0400 Respiratory rate 18 /min Dr. Tonio Fajardo DO Work Phone: [facility] 04-10-2025 16:21-0400 SaO2% (BldA) [Mass fraction] 100 % Dr. Tonio Fajardo DO Work Phone: [facility] 04-10-2025 16:21-0400 Systolic blood pressure 142 mm[Hg] Dr. Tonio Fajardo DO Work Phone: [facility] 04-10-2025 14:30-0400 Body height 167.[address] Tonio Fajardo DO Work Phone: [facility] 04-10-2025 14:30-0400 Body weight 75.[address] Tonio Fajardo DO Work Phone: [facility] 04-10-2025 05:10-0400 Body mass index (BMI) [Ratio] 26.7 kg/m2 Dr. Tonio Fajardo DO Work Phone: [facility] 04-07-2025 00:00-0400 Inhaled oxygen concentration 35 % Dr. Tonio Fajardo DO Work Phone: [facility] 04-05-2025 20:00-0400 Diastolic blood pressure 65 mm[Hg] Dr. Tonio Fajardo DO Work Phone: [facility] 04-05-2025 20:00-0400 Heart rate 103 /min Dr. Tonio Fajardo DO Work Phone: [facility] 04-05-2025 20:00-0400 Inhaled oxygen flow rate 4 L/min Dr. Tonio Fajardo DO Work Phone: [facility] 04-05-2025 20:00-0400 Respiratory rate 25 /min Dr. Tonio Fajardo DO Work Phone: [facility] 04-05-2025 20:00-0400 SaO2% (BldA) [Mass fraction] 92 % Dr. Tonio Fajardo DO Work Phone: [facility] 04-05-2025 20:00-0400 Systolic blood pressure 119 mm[Hg] Dr. Tonio Fajardo DO Work Phone: [facility] 04-05-2025 19:12-0400 Body temperature 98 [degF] Dr. Tonio Fajardo DO Work Phone: [facility] 04-05-2025 16:41-0400 Body height 167.[address] Tonio Fajarod DO Work Phone: [facility] 04-05-2025 16:41-0400 Body mass index (BMI) [Ratio] 28 kg/m2 Dr. Tonio Fajardo DO Work Phone: [facility] 04-05-2025 16:41-0400 Body weight 78.[address] Tonio Fajardo DO Work Phone: [facility] 03-17-2025 13:07-0400 Body height 167.[address] Tonio Fajardo DO Work Phone: [facility] 03-17-2025 13:07-0400 Body mass index (BMI) [Ratio] 26.6 kg/m2 Dr. Tonio Fajardo DO Work Phone: [facility] 03-17-2025 13:07-0400 Body weight 74.[address] Tonio Fajardo DO Work Phone: [facility] 03-17-2025 13:07-0400 Diastolic blood pressure 60 mm[Hg] Dr. Tonio Fajardo DO Work Phone: [facility] 03-17-2025 13:07-0400 Heart rate 101 /min Dr. Tonio Fajardo DO Work Phone: [facility] 03-17-2025 13:07-0400 Inhaled oxygen flow rate 3 L/min Dr. Tonio Fajardo DO Work Phone: [facility] 03-17-2025 13:07-0400 Respiratory rate 20 /min Dr. Tonio Fajardo DO Work Phone: [facility] 03-17-2025 13:07-0400 SaO2% (BldA) [Mass fraction] 96 % Dr. Tonio Fajardo DO Work Phone: [facility] 03-17-2025 13:07-0400 Systolic blood pressure 124 mm[Hg] Dr. Tonio Fajardo DO Work Phone: [facility] 03-15-2025 18:32-0400 Body temperature 98.1 [degF] Dr. Tonio Fajardo DO Work Phone: [facility] 03-15-2025 18:32-0400 Diastolic blood pressure 71 mm[Hg] Dr. Tonio Fajardo DO Work Phone: [facility] 03-15-2025 18:32-0400 Heart rate 101 /min Dr. Tonio Fajardo DO Work Phone: [facility] 03-15-2025 18:32-0400 Respiratory rate 18 /min Dr. Tonio Fajardo DO Work Phone: [facility] 03-15-2025 18:32-0400 SaO2% (BldA) [Mass fraction] 93 % Dr. Tonio Fajardo DO Work Phone: [facility] 03-15-2025 18:32-0400 Systolic blood pressure 168 mm[Hg] Dr. Tonio Fajardo DO Work Phone: [facility] 03-15-2025 16:58-0400 Body height 167.[address] Tonio Fajardo DO Work Phone: [facility] 03-15-2025 16:58-0400 Body mass index (BMI) [Ratio] 27.8 kg/m2 Dr. Tonio Fajardo DO Work Phone: [facility] 03-15-2025 16:58-0400 Body weight 78.[address] Tonio Fajardo DO Work Phone: [facility] 03-15-2025 16:58-0400 Inhaled oxygen flow rate 3 L/min Dr. Tonio Fajardo DO Work Phone: [facility] 03-09-2025 16:22-0400 Body temperature 98.5 [degF] Dr. Tonio Fajardo DO Work Phone: [facility] 03-09-2025 16:22-0400 Heart rate 78 /min Dr. Tonio Fajardo DO Work Phone: [facility] 03-09-2025 16:22-0400 Inhaled oxygen flow rate 3 L/min Dr. Tonio Fajardo DO Work Phone: [facility] 03-09-2025 16:22-0400 Respiratory rate 20 /min Dr. Tonio Fajardo DO Work Phone: [facility] 03-09-2025 16:22-0400 SaO2% (BldA) [Mass fraction] 92 % Dr. Tonio Fajardo DO Work Phone: [facility] 03-09-2025 11:48-0400 Inhaled oxygen flow rate 2 L/min Dr. Tonio Fajardo DO Work Phone: [facility] 03-09-2025 11:48-0400 SaO2% (BldA) [Mass fraction] 79 % Dr. Tonio Fajardo DO Work Phone: [facility] 03-09-2025 11:11-0400 Body height 167.[address] Tonio Fajardo DO Work Phone: [facility] 03-09-2025 11:11-0400 Body weight 78.[address] Tonio Fajardo DO Work Phone: [facility] 03-09-2025 10:00-0400 Diastolic blood pressure 51 mm[Hg] Dr. Tonio Fajardo DO Work Phone: [facility] 03-09-2025 10:00-0400 Heart rate 97 /min Dr. Tonio Fajardo DO Work Phone: [facility] 03-09-2025 10:00-0400 Systolic blood pressure 129 mm[Hg] Dr. Tonio Fajardo DO Work Phone: [facility] 03-09-2025 05:00-0400 Body mass index (BMI) [Ratio] 28 kg/m2 Dr. Tonio Fajardo DO Work Phone: [facility] 03-04-2025 20:49-0400 Body temperature 98.6 [degF] Dr. Tonio Fajardo DO Work Phone: [facility] 03-04-2025 20:49-0400 Diastolic blood pressure 70 mm[Hg] Dr. Tonio Fajardo DO Work Phone: [facility] 03-04-2025 20:49-0400 Heart rate 114 /min Dr. Tonio Fajardo DO Work Phone: [facility] 03-04-2025 20:49-0400 Respiratory rate 20 /min Dr. Tonio Fajardo DO Work Phone: [facility] 03-04-2025 20:49-0400 SaO2% (BldA) [Mass fraction] 100 % Dr. Tonio Fajardo DO Work Phone: [facility] 03-04-2025 20:49-0400 Systolic blood pressure 153 mm[Hg] Dr. Tonio Fajardo DO Work Phone: [facility] 03-04-2025 20:00-0400 Inhaled oxygen flow rate 4 L/min Dr. Tonio Fajardo DO Work Phone: [facility] 03-04-2025 15:01-0400 Body height 167.[address] Tonio Fajardo DO Work Phone: [facility] 03-04-2025 15:01-0400 Body mass index (BMI) [Ratio] 25.9 kg/m2 Dr. Tonio Fajardo DO Work Phone: [facility] 03-04-2025 15:01-0400 Body weight 73.[address] Tonio Fajardo DO Work Phone: [facility] 11-06-2024 14:45-0400 Body height 167.[address] Tonio Fajardo DO Work Phone: [facility] 11-06-2024 14:45-0400 Body mass index (BMI) [Ratio] 28.5 kg/m2 Dr. Tonio Fajardo DO Work Phone: [facility] 11-06-2024 14:45-0400 Body temperature 98.5 [degF] Dr. Tonio Fajardo DO Work Phone: [facility] 11-06-2024 14:45-0400 Body weight 80.[address] Tonio Fajardo DO Work Phone: [facility] 11-06-2024 14:45-0400 Diastolic blood pressure 55 mm[Hg] Dr. Tonio Fajardo DO Work Phone: [facility] 11-06-2024 14:45-0400 Heart rate 55 /min Dr. Tonio Fajardo DO Work Phone: [facility] 11-06-2024 14:45-0400 Respiratory rate 18 /min Dr. Tonio Fajardo DO Work Phone: [facility] 11-06-2024 14:45-0400 SaO2% (BldA) [Mass fraction] 95 % Dr. Tonio Fajardo DO Work Phone: [facility] 11-06-2024 14:45-0400 Systolic blood pressure 116 mm[Hg] Dr. Tonio Fajardo DO Work Phone: [facility] 10-23-2024 09:06-0500 Body mass index (BMI) [Ratio] 28.5 kg/m2 Dr. Tonio Fajardo DO Work Phone: [facility] 10-23-2024 09:06-0500 Body temperature 97.4 [degF] Dr. Tonio Fajardo DO Work Phone: [facility] 10-23-2024 09:06-0500 Body weight 80.[address] Tonio Fajardo DO Work Phone: [facility] 10-23-2024 09:06-0500 Diastolic blood pressure 56 mm[Hg] Dr. Tonio Fajardo DO Work Phone: [facility] 10-23-2024 09:06-0500 Heart rate 52 /min Dr. Tonio Fajardo DO Work Phone: [facility] 10-23-2024 09:06-0500 Inhaled oxygen flow rate 3 L/min Dr. Tonio Fajardo DO Work Phone: [facility] 10-23-2024 09:06-0500 Respiratory rate 26 /min Dr. Tonio Fajardo DO Work Phone: [facility] 10-23-2024 09:06-0500 SaO2% (BldA) [Mass fraction] 97 % Dr. Tonio Fajardo DO Work Phone: [facility] 10-23-2024 09:06-0500 Systolic blood pressure 128 mm[Hg] Dr. Tonio Fajardo DO Work Phone: [facility] 10-16-2024 13:24-0500 Body height 167.[address] Tonio Fajardo DO Work Phone: [facility] 10-16-2024 13:24-0500 Body weight 78.[address] Tonio Fajardo DO Work Phone: [facility] 10-16-2024 13:24-0500 Heart rate 98 /min Dr. Tonio Fajardo DO Work Phone: [facility] 10-16-2024 13:24-0500 Inhaled oxygen flow rate 2 L/min Dr. Tonio Fajardo DO Work Phone: [facility] 10-16-2024 13:24-0500 SaO2% (BldA) [Mass fraction] 96 % Dr. Tonio Fajardo DO Work Phone: [facility] 09-25-2024 12:59-0500 Body mass index (BMI) [Ratio] 27.7 kg/m2 Dr. Tonio Fajardo DO Work Phone: [facility] 09-25-2024 12:59-0500 Body weight 80.[address] Tonio Fajardo DO Work Phone: [facility] 09-25-2024 12:59-0500 Diastolic blood pressure 75 mm[Hg] Dr. Tonio Fajardo DO Work Phone: [facility] 09-25-2024 12:59-0500 Heart rate 99 /min Dr. Tonio Fajardo DO Work Phone: [facility] 09-25-2024 12:59-0500 Respiratory rate 18 /min Dr. Tnoio Fajardo DO Work Phone: [facility] 09-25-2024 12:59-0500 SaO2% (BldA) [Mass fraction] 90 % Dr. Tonio Fajardo DO Work Phone: [facility] 09-25-2024 12:59-0500 Systolic blood pressure 120 mm[Hg] Dr. Tonio Fajardo DO Work Phone: [facility] 11-12-2023 13:22-0400 Body height 170.[address] Tonio Fajardo Work Phone: [facility] 11-12-2023 13:22-0400 Body mass index (BMI) [Ratio] 28 kg/m2 Dr. Tonio Fajardo Work Phone: [facility] 11-12-2023 13:22-0400 Body temperature 97.9 [degF] Dr. Tonio Fajardo Work Phone: [facility] 11-12-2023 13:22-0400 Body weight 81.[address] Tonio Fajardo Work Phone: [facility] 11-12-2023 13:22-0400 Diastolic blood pressure 62 mm[Hg] Dr. Tonio Fajardo Work Phone: [facility] 11-12-2023 13:22-0400 Heart rate 103 /min Dr. Tonio Fajardo Work Phone: [facility] 11-12-2023 13:22-0400 Respiratory rate 18 /min Dr. Tonio Fajardo Work Phone: [facility] 11-12-2023 13:22-0400 SaO2% (BldA) [Mass fraction] 98 % Dr. Tonio Fajardo Work Phone: [facility] 11-12-2023 13:22-0400 Systolic blood pressure 97 mm[Hg] Dr. Tonio Fajardo Work Phone: [facility] 10-31-2023 12:05-0400 Body mass index (BMI) [Ratio] 27.3 kg/m2 Dr. Tonio Fajardo Work Phone: [facility] 10-31-2023 12:05-0400 Body temperature 98.2 [degF] Dr. Tonio Fajardo Work Phone: [facility] 10-31-2023 12:05-0400 Body weight 79.[address] Tonio Fajardo Work Phone: [facility] 10-31-2023 12:05-0400 Diastolic blood pressure 71 mm[Hg] Dr. Tonio Fajardo Work Phone: [facility] 10-31-2023 12:05-0400 Heart rate 78 /min Dr. Tonio Fajardo Work Phone: [facility] 10-31-2023 12:05-0400 Respiratory rate 18 /min Dr. Tonio Fajardo Work Phone: [facility] 10-31-2023 12:05-0400 SaO2% (BldA) [Mass fraction] 94 % Dr. Tonio Fajardo Work Phone: [facility] 10-31-2023 12:05-0400 Systolic blood pressure 119 mm[Hg] Dr. Tonio Fajardo Work Phone: [facility] 10-18-2023 14:51-0500 Body mass index (BMI) [Ratio] 28 kg/m2 Dr. Tonio Fajardo Work Phone: [facility] 10-18-2023 14:51-0500 Body temperature 98.9 [degF] Dr. Tonio Fajardo Work Phone: [facility] 10-18-2023 14:51-0500 Body weight 81.[address] Tonio Fajardo Work Phone: [facility] 10-18-2023 14:51-0500 Diastolic blood pressure 60 mm[Hg] Dr. Tonio Fajardo Work Phone: [facility] 10-18-2023 14:51-0500 Heart rate 98 /min Dr. Tonio Fajardo Work Phone: [facility] 10-18-2023 14:51-0500 Respiratory rate 18 /min Dr. Tonio Fajardo Work Phone: [facility] 10-18-2023 14:51-0500 SaO2% (BldA) [Mass fraction] 96 % Dr. Tonio Fajardo Work Phone: [facility] 10-18-2023 14:51-0500 Systolic blood pressure 114 mm[Hg] Dr. Tonio Fajardo Work Phone: [facility] 08-29-2023 12:52-0500 Body height 170.[address] Tonio Fajardo Work Phone: [facility] 08-29-2023 12:52-0500 Body mass index (BMI) [Ratio] 27.8 kg/m2 Dr. Tonio Fajardo Work Phone: [facility] 08-29-2023 12:52-0500 Body weight 80.[address] Tonio Fajardo Work Phone: [facility] 08-29-2023 12:52-0500 Diastolic blood pressure 71 mm[Hg] Dr. Tonio Fajardo Work Phone: [facility] 08-29-2023 12:52-0500 Heart rate 95 /min Dr. Tonio Fajardo Work Phone: [facility] 08-29-2023 12:52-0500 Respiratory rate 18 /min Dr. Tonio Fajardo Work Phone: [facility] 08-29-2023 12:52-0500 SaO2% (BldA) [Mass fraction] 97 % Dr. Tonio Fajardo Work Phone: [facility] 08-29-2023 12:52-0500 Systolic blood pressure 111 mm[Hg] Dr. Tonio Fajardo Work Phone: [facility] 07-25-2023 07:50-0500 Body height 170.[address] Tonio Fajardo Work Phone: [facility] 07-25-2023 07:50-0500 Body mass index (BMI) [Ratio] 29.4 kg/m2 Dr. Tonio Fajardo Work Phone: [facility] 07-25-2023 07:50-0500 Body temperature 96.2 [degF] Dr. Tonio Fajardo Work Phone: [facility] 07-25-2023 07:50-0500 Body weight 85.[address] Tonio Fajardo Work Phone: [facility] 07-25-2023 07:50-0500 Diastolic blood pressure 75 mm[Hg] Dr. Tonio Fajardo Work Phone: [facility] 07-25-2023 07:50-0500 Heart rate 53 /min Dr. Tonio Fajardo Work Phone: [facility] 07-25-2023 07:50-0500 Respiratory rate 20 /min Dr. Tonio Fajardo Work Phone: [facility] 07-25-2023 07:50-0500 SaO2% (BldA) [Mass fraction] 82 % Dr. Tonio Fajardo Work Phone: [facility] 07-25-2023 07:50-0500 Systolic blood pressure 119 mm[Hg] Dr. Tonio Fajardo Work Phone: [facility] 06-08-2023 14:33-0400 Body temperature 97.1 [degF] Dr. Tonio Fajardo Work Phone: [facility] 06-08-2023 14:33-0400 Diastolic blood pressure 67 mm[Hg] Dr. Tonio Fajardo Work Phone: [facility] 06-08-2023 14:33-0400 Heart rate 103 /min Dr. Tonio Fajardo Work Phone: [facility] 06-08-2023 14:33-0400 Respiratory rate 14 /min Dr. Tonio Fajardo Work Phone: [facility] 06-08-2023 14:33-0400 SaO2% (BldA) [Mass fraction] 93 % Dr. Tonio Fajardo Work Phone: [facility] 06-08-2023 14:33-0400 Systolic blood pressure 133 mm[Hg] Dr. Tonio Fajardo Work Phone: [facility] 06-08-2023 12:20-0400 Body height 170.[address] Tonio Fajardo Work Phone: [facility] 06-08-2023 12:20-0400 Body mass index (BMI) [Ratio] 29.3 kg/m2 Dr. Tonio Fajardo Work Phone: [facility] 06-08-2023 12:20-0400 Body weight [address] Tonio Fajardo Work Phone: [facility] 05-02-2023 13:50-0400 Diastolic blood pressure 63 mm[Hg] Dr. Tonio Fajardo Work Phone: [facility] 05-02-2023 13:50-0400 Heart rate 97 /min Dr. Tonio Fajardo Work Phone: [facility] 05-02-2023 13:50-0400 Respiratory rate 18 /min Dr. Tonio Fajardo Work Phone: [facility] 05-02-2023 13:50-0400 Systolic blood pressure 113 mm[Hg] Dr. Tonio Fajardo Work Phone: [facility] 04-25-2023 14:04-0400 Body temperature 97.9 [degF] Dr. Tonio Fajardo Work Phone: [facility] 04-18-2023 13:24-0400 Body temperature 97.5 [degF] Dr. Tonio Fajardo Work Phone: [facility] 04-18-2023 13:24-0400 Diastolic blood pressure 77 mm[Hg] Dr. Tonio Fajardo Work Phone: [facility] 04-18-2023 13:24-0400 Heart rate 109 /min Dr. Tonio Fajardo Work Phone: [facility] 04-18-2023 13:24-0400 Respiratory rate 16 /min Dr. Tonio Fajardo Work Phone: [facility] 04-18-2023 13:24-0400 Systolic blood pressure 141 mm[Hg] Dr. Tonio Fajardo Work Phone: [facility] 04-17-2023 11:08-0400 Body height 167.[address] Tonio Fajardo Work Phone: [facility] 04-17-2023 11:08-0400 Body mass index (BMI) [Ratio] 30.2 kg/m2 Dr. Tonio Fajardo Work Phone: [facility] 04-17-2023 11:08-0400 Body temperature 98.6 [degF] Dr. Tonio Fajardo Work Phone: [facility] 04-17-2023 11:08-0400 Body weight 84.[address] Tonio Fajardo Work Phone: [facility] 04-17-2023 11:08-0400 Diastolic blood pressure 87 mm[Hg] Dr. Tonio Fajardo Work Phone: [facility] 04-17-2023 11:08-0400 Heart rate 87 /min Dr. Tonio Fajardo Work Phone: [facility] 04-17-2023 11:08-0400 Respiratory rate 18 /min Dr. Tonio Fajardo Work Phone: [facility] 04-17-2023 11:08-0400 SaO2% (BldA) [Mass fraction] 95 % Dr. Tonio Fajardo Work Phone: [facility] 04-17-2023 11:08-0400 Systolic blood pressure 130 mm[Hg] Dr. Tonio Fajardo Work Phone: [facility] 04-02-2023 11:24-0400 Body temperature 98.6 [degF] Dr. Tonio Fajardo Work Phone: [facility] 04-02-2023 11:24-0400 Diastolic blood pressure 55 mm[Hg] Dr. Tonio Fajardo Work Phone: [facility] 04-02-2023 11:24-0400 Heart rate 101 /min Dr. Tonio Fajardo Work Phone: [facility] 04-02-2023 11:24-0400 Respiratory rate 20 /min Dr. Tonio Fajardo Work Phone: [facility] 04-02-2023 11:24-0400 Systolic blood pressure 114 mm[Hg] Dr. Tonio Fajardo Work Phone: [facility] 03-19-2023 10:28-0400 Body temperature 98.2 [degF] Dr. Tonio Fajardo Work Phone: [facility] 03-19-2023 10:28-0400 Diastolic blood pressure 59 mm[Hg] Dr. Tonio Fajardo Work Phone: [facility] 03-19-2023 10:28-0400 Heart rate 106 /min Dr. Tonio Fajardo Work Phone: [facility] 03-19-2023 10:28-0400 Respiratory rate 20 /min Dr. Tonio Fajardo Work Phone: [facility] 03-19-2023 10:28-0400 Systolic blood pressure 120 mm[Hg] Dr. Tonio Fajardo Work Phone: [facility] 02-05-2023 13:10-0400 Body temperature 97.6 [degF] Dr. Tonio Fajardo Work Phone: [facility] 02-05-2023 13:10-0400 Diastolic blood pressure 76 mm[Hg] Dr. Tonio Fajardo Work Phone: [facility] 02-05-2023 13:10-0400 Heart rate 109 /min Dr. Tonio Fajardo Work Phone: [facility] 02-05-2023 13:10-0400 Respiratory rate 18 /min Dr. Tonio Fajardo Work Phone: [facility] 02-05-2023 13:10-0400 Systolic blood pressure 160 mm[Hg] Dr. Tonio Fajardo Work Phone: [facility] 01-08-2023 13:37-0400 Body temperature 96.7 [degF] Dr. Tonio Fajardo Work Phone: [facility] 01-08-2023 13:37-0400 Diastolic blood pressure 46 mm[Hg] Dr. Tonio Fajardo Work Phone: [facility] 01-08-2023 13:37-0400 Heart rate 111 /min Dr. Tonio Fajardo Work Phone: [facility] 01-08-2023 13:37-0400 Systolic blood pressure 121 mm[Hg] Dr. Tonio Fajardo Work Phone: [facility] 12-31-2022 00:58-0400 Body temperature 98.7 [degF] Dr. Tonio Fajardo Work Phone: [facility] 12-31-2022 00:58-0400 Diastolic blood pressure 59 mm[Hg] Dr. Tonio Fajardo Work Phone: [facility] 12-31-2022 00:58-0400 Heart rate 111 /min Dr. Tonio Fajardo Work Phone: [facility] 12-31-2022 00:58-0400 Respiratory rate 26 /min Dr. Tonio Fajardo Work Phone: [facility] 05-14-2023 00:58-0400 SaO2% (BldA) [Mass fraction] 93 % Dr. Tonio Fajardo Work Phone: [facility] 12-31-2022 00:58-0400 Systolic blood pressure 131 mm[Hg] Dr. Tonio Fajardo Work Phone: [facility] 12-30-2022 22:36-0400 Body height 167.[address] Tonio Fajardo Work Phone: [facility] 12-30-2022 22:36-0400 Body mass index (BMI) [Ratio] 30.5 kg/m2 Dr. Tonio Fajardo Work Phone: [facility] 12-30-2022 22:36-0400 Body weight 85.[address] Tonio Fajardo Work Phone: [facility] 12-25-2022 14:53-0400 Body temperature 97.7 [degF] Dr. Tonio Fajardo Work Phone: [facility] 12-25-2022 14:53-0400 Diastolic blood pressure 51 mm[Hg] Dr. Tonio Fajardo Work Phone: [facility] 12-25-2022 14:53-0400 Heart rate 110 /min Dr. Tonio Fajardo Work Phone: [facility] 12-25-2022 14:53-0400 Respiratory rate 18 /min Dr. Tonio Fajardo Work Phone: [facility] 12-25-2022 14:53-0400 Systolic blood pressure 101 mm[Hg] Dr. Tonio Fajardo Work Phone: [facility] 12-12-2022 10:49-0400 Body height 167.[address] Tonio Fajardo Work Phone: [facility] 12-12-2022 10:49-0400 Body mass index (BMI) [Ratio] 29.7 kg/m2 Dr. Tonio Fajardo Work Phone: [facility] 12-12-2022 10:49-0400 Body temperature 97.4 [degF] Dr. Tonio Fajardo Work Phone: [facility] 12-12-2022 10:49-0400 Body weight 83.[address] Tonio Fajardo Work Phone: [facility] 12-12-2022 10:49-0400 Diastolic blood pressure 71 mm[Hg] Dr. Tonio Fajardo Work Phone: [facility] 12-12-2022 10:49-0400 Heart rate 114 /min Dr. Tonio Fajardo Work Phone: [facility] 12-12-2022 10:49-0400 Respiratory rate 18 /min Dr. Tonio Fajardo Work Phone: [facility] 12-12-2022 10:49-0400 SaO2% (BldA) [Mass fraction] 96 % Dr. Tnoio Fajardo Work Phone: [facility] 12-12-2022 10:49-0400 Systolic blood pressure 135 mm[Hg] Dr. Tonio Fajardo Work Phone: [facility] 12-11-2022 13:12-0400 Body temperature 96.2 [degF] Dr. Tonio Fajardo Work Phone: [facility] 12-11-2022 13:12-0400 Diastolic blood pressure 87 mm[Hg] Dr. Tonio Fajardo Work Phone: [facility] 12-11-2022 13:12-0400 Heart rate 107 /min Dr. Tonio Fajardo Work Phone: [facility] 12-11-2022 13:12-0400 Respiratory rate 20 /min Dr. Tonio Fajardo Work Phone: [facility] 12-11-2022 13:12-0400 Systolic blood pressure 110 mm[Hg] Dr. Tonio Fajardo Work Phone: [facility] 11-16-2022 13:13-0400 Diastolic blood pressure 49 mm[Hg] Dr. Tonio Fajardo Work Phone: [facility] 11-16-2022 13:13-0400 Heart rate 82 /min Dr. Tonio Fajardo Work Phone: [facility] 11-16-2022 13:13-0400 Respiratory rate 16 /min Dr. Tonio Fajardo Work Phone: [facility] 11-16-2022 13:13-0400 Systolic blood pressure 125 mm[Hg] Dr. Tonio Fajardo Work Phone: [facility] 11-08-2022 09:52-0400 Body temperature 97.3 [degF] Dr. Tonio Fajardo Work Phone: [facility] 10-16-2022 14:07-0500 Body height 167.[address] Tonio Fajardo Work Phone: [facility] 10-16-2022 14:05-0500 Body mass index (BMI) [Ratio] 29.8 kg/m2 Dr. Tonio Fajardo Work Phone: [facility] 10-16-2022 14:05-0500 Body temperature 97.6 [degF] Dr. Tonio Fajardo Work Phone: [facility] 10-16-2022 14:05-0500 Body weight 83.[address] Tonio Fajardo Work Phone: [facility] 10-16-2022 14:05-0500 Diastolic blood pressure 89 mm[Hg] Dr. Tonio Fajardo Work Phone: [facility] 10-16-2022 14:05-0500 Heart rate 78 /min Dr. Tonio Fajardo Work Phone: [facility] 10-16-2022 14:05-0500 Respiratory rate 18 /min Dr. Tonio Fajardo Work Phone: [facility] 10-16-2022 14:05-0500 SaO2% (BldA) [Mass fraction] 94 % Dr. Tonio Fajardo Work Phone: [facility] 10-16-2022 14:05-0500 Systolic blood pressure 145 mm[Hg] Dr. Tonio Fajardo Work Phone: [facility] 10-16-2022 13:24-0500 Body mass index (BMI) [Ratio] 29.8 kg/m2 Dr. Tonio Fajardo Work Phone: [facility] 10-16-2022 13:24-0500 Body temperature 98.6 [degF] Dr. Tonio Fajardo Work Phone: [facility] 10-16-2022 13:24-0500 Body weight 83.[address] Tonio Fajardo Work Phone: [facility] 10-16-2022 13:24-0500 Diastolic blood pressure 74 mm[Hg] Dr. Tonio Fajardo Work Phone: [facility] 10-16-2022 13:24-0500 Heart rate 75 /min Dr. Tonio Fajardo Work Phone: [facility] 10-16-2022 13:24-0500 Respiratory rate 18 /min Dr. Tonio Fajardo Work Phone: [facility] 10-16-2022 13:24-0500 SaO2% (BldA) [Mass fraction] 94 % Dr. Tonio Fajardo Work Phone: [facility] 10-16-2022 13:24-0500 Systolic blood pressure 146 mm[Hg] Dr. Tonio Fajardo Work Phone: [facility] 10-09-2022 12:59-0500 Body temperature 97.5 [degF] Dr. Tonio Fajardo Work Phone: [facility] 10-09-2022 12:59-0500 Diastolic blood pressure 63 mm[Hg] Dr. Tonio Fajardo Work Phone: [facility] 10-09-2022 12:59-0500 Heart rate 89 /min Dr. Tonio Fajardo Work Phone: [facility] 10-09-2022 12:59-0500 Respiratory rate 22 /min Dr. Tonio Fajardo Work Phone: [facility] 10-09-2022 12:59-0500 Systolic blood pressure 148 mm[Hg] Dr. Tonio Fajardo Work Phone: [facility] 09-18-2022 09:49-0500 Body temperature 97.3 [degF] Dr. Tonio Fajardo Work Phone: [facility] 09-18-2022 09:49-0500 Diastolic blood pressure 44 mm[Hg] Dr. Tonio Fajardo Work Phone: [facility] 09-18-2022 09:49-0500 Heart rate 66 /min Dr. Tonio Fajardo Work Phone: [facility] 09-18-2022 09:49-0500 Respiratory rate 18 /min Dr. Tonio Fajardo Work Phone: [facility] 09-18-2022 09:49-0500 Systolic blood pressure 138 mm[Hg] Dr. Tonio Fajardo Work Phone: [facility] 08-15-2022 13:56-0500 Body temperature 97.1 [degF] Dr. Tonio Fajardo Work Phone: [facility] 08-15-2022 13:56-0500 Diastolic blood pressure 43 mm[Hg] Dr. Tonio Fajardo Work Phone: [facility] 08-15-2022 13:56-0500 Heart rate 73 /min Dr. Tonio Fajardo Work Phone: [facility] 08-15-2022 13:56-0500 Respiratory rate 16 /min Dr. Tonio Fajardo Work Phone: [facility] 08-15-2022 13:56-0500 Systolic blood pressure 139 mm[Hg] Dr. Tonio Fajardo Work Phone: [facility] 08-08-2022 14:00-0500 Body height 167.[address] Tonio Fajardo Work Phone: [facility] 08-08-2022 13:57-0500 Body mass index (BMI) [Ratio] 29.5 kg/m2 Dr. Tonio Fajardo Work Phone: [facility] 08-08-2022 13:57-0500 Body temperature 97.5 [degF] Dr. Tonio Fajardo Work Phone: [facility] 08-08-2022 13:57-0500 Body weight 83.[address] Tonio Fajardo Work Phone: [facility] 08-08-2022 13:57-0500 Diastolic blood pressure 54 mm[Hg] Dr. Tonio Fajardo Work Phone: [facility] 08-08-2022 13:57-0500 Heart rate 67 /min Dr. Tonio Fajardo Work Phone: [facility] 08-08-2022 13:57-0500 Respiratory rate 16 /min Dr. Tonio Fajardo Work Phone: [facility] 08-08-2022 13:57-0500 SaO2% (BldA) [Mass fraction] 94 % Dr. Tonio Fajardo Work Phone: [facility] 08-08-2022 13:57-0500 Systolic blood pressure 109 mm[Hg] Dr. Tonio Fajardo Work Phone: [facility] 07-19-2022 14:30-0500 Body height 167.[address] Tonio Fajardo Work Phone: [facility] Work Phone: 07-19-2022 14:30-0500 Body mass index (BMI) [Ratio] 29 kg/m2 Dr. Tonio Fajardo Work Phone: [facility] 07-19-2022 14:30-0500 Body weight 81.[address] Tonio Fajardo Work Phone: [facility] 07-19-2022 14:30-0500 Diastolic blood pressure 62 mm[Hg] Dr. Tonio Fajardo Work Phone: [facility] 07-19-2022 14:30-0500 Heart rate 66 /min Dr. Tonio Fajardo Work Phone: [facility] 07-19-2022 14:30-0500 Respiratory rate 24 /min Dr. Tonio Fajardo Work Phone: [facility] 07-19-2022 14:30-0500 SaO2% (BldA) [Mass fraction] 97 % Dr. Tonio Fajardo Work Phone: [facility] 07-19-2022 14:30-0500 Systolic blood pressure 117 mm[Hg] Dr. Tonio Fajardo Work Phone: [facility] 07-18-2022 13:29-0500 Body temperature 97.1 [degF] Dr. Tonio Fajardo Work Phone: [facility] 07-18-2022 13:29-0500 Diastolic blood pressure 57 mm[Hg] Dr. Tonio Fajardo Work Phone: [facility] 07-18-2022 13:29-0500 Heart rate 83 /min Dr. Tonio Fajardo Work Phone: [facility] 07-18-2022 13:29-0500 Respiratory rate 16 /min Dr. Tonio Fajardo Work Phone: [facility] 07-18-2022 13:29-0500 Systolic blood pressure 117 mm[Hg] Dr. Tonio Fajardo Work Phone: [facility] 07-17-2022 11:23-0500 Body temperature 98.3 [degF] Dr. Tonio Fajardo Work Phone: [facility] 07-17-2022 11:23-0500 Diastolic blood pressure 58 mm[Hg] Dr. Tonio Fajardo Work Phone: [facility] 07-17-2022 11:23-0500 Heart rate 63 /min Dr. Tonio Fajardo Work Phone: [facility] 07-17-2022 11:23-0500 Respiratory rate 16 /min Dr. Tonio Fajardo Work Phone: [facility] 07-17-2022 11:23-0500 SaO2% (BldA) [Mass fraction] 97 % Dr. Tonio Fajardo Work Phone: [facility] 07-17-2022 11:23-0500 Systolic blood pressure 107 mm[Hg] Dr. Tonio Fajardo Work Phone: [facility] 07-05-2022 14:00-0500 Body mass index (BMI) [Ratio] 29 kg/m2 Dr. Tonio Fajardo Work Phone: [facility] 07-05-2022 14:00-0500 Body temperature 96.9 [degF] Dr. Tonio Fajardo Work Phone: [facility] 07-05-2022 14:00-0500 Body weight 81.[address] Tonio Fajardo Work Phone: [facility] 07-05-2022 14:00-0500 Diastolic blood pressure 63 mm[Hg] Dr. Tonio Fajardo Work Phone: [facility] 07-05-2022 14:00-0500 Heart rate 66 /min Dr. Tonio Fajardo Work Phone: [facility] 07-05-2022 14:00-0500 Respiratory rate 16 /min Dr. Tonio Fajardo Work Phone: [facility] 07-05-2022 14:00-0500 SaO2% (BldA) [Mass fraction] 97 % Dr. Tonio Fajardo Work Phone: [facility] 07-05-2022 14:00-0500 Systolic blood pressure 156 mm[Hg] Dr. Tonio Fajardo Work Phone: [facility] 06-28-2022 14:11-0500 Body mass index (BMI) [Ratio] 29.6 kg/m2 Dr. Tonio Fajardo Work Phone: [facility] 06-28-2022 14:11-0500 Body temperature 97.1 [degF] Dr. Tonio Fajardo Work Phone: [facility] 06-28-2022 14:11-0500 Body weight 83.[address] Tonio Fajardo Work Phone: [facility] 06-28-2022 14:11-0500 Diastolic blood pressure 58 mm[Hg] Dr. Tonio Fajardo Work Phone: [facility] 06-28-2022 14:11-0500 Heart rate 77 /min Dr. Tonio Fajardo Work Phone: [facility] 06-28-2022 14:11-0500 Respiratory rate 16 /min Dr. Tonio Fajardo Work Phone: [facility] 06-28-2022 14:11-0500 SaO2% (BldA) [Mass fraction] 89 % Dr. Tonio Fajardo Work Phone: [facility] 06-28-2022 14:11-0500 Systolic blood pressure 124 mm[Hg] Dr. Tonio Fajardo Work Phone: [facility] 06-21-2022 13:57-0400 Body mass index (BMI) [Ratio] 29.8 kg/m2 Dr. Tonio Fajardo Work Phone: [facility] 06-21-2022 13:57-0400 Body temperature 97 [degF] Dr. Tonio Fajardo Work Phone: [facility] 06-21-2022 13:57-0400 Body weight 83.[address] Tonio Fajardo Work Phone: [facility] 06-21-2022 13:57-0400 Diastolic blood pressure 88 mm[Hg] Dr. Tonio Fajardo Work Phone: [facility] 06-21-2022 13:57-0400 Heart rate 70 /min Dr. Tonio Fajardo Work Phone: [facility] 06-21-2022 13:57-0400 Respiratory rate 18 /min Dr. Tonio Fajardo Work Phone: [facility] 06-21-2022 13:57-0400 SaO2% (BldA) [Mass fraction] 94 % Dr. Tonio Fajardo Work Phone: [facility] 06-21-2022 13:57-0400 Systolic blood pressure 139 mm[Hg] Dr. Tonio Fajardo Work Phone: [facility] 06-14-2022 13:55-0400 Body height 167.[address] Tonio Fajardo Work Phone: [facility] Work Phone: 06-14-2022 13:53-0400 Body mass index (BMI) [Ratio] 29.5 kg/m2 Dr. Tonio Fajardo Work Phone: [facility] 06-14-2022 13:53-0400 Body temperature 97 [degF] Dr. Tonio Fajardo Work Phone: [facility] 06-14-2022 13:53-0400 Body weight 83.[address] Tonio Fajardo Work Phone: [facility] 06-14-2022 13:53-0400 Diastolic blood pressure 61 mm[Hg] Dr. Tonio Fajardo Work Phone: [facility] 06-14-2022 13:53-0400 Heart rate 66 /min Dr. Tonio Fajardo Work Phone: [facility] 06-14-2022 13:53-0400 Respiratory rate 16 /min Dr. Tonio Fajardo Work Phone: [facility] 06-14-2022 13:53-0400 SaO2% (BldA) [Mass fraction] 94 % Dr. Tonio Fajardo Work Phone: [facility] 06-14-2022 13:53-0400 Systolic blood pressure 137 mm[Hg] Dr. Tonio Fajardo Work Phone: [facility] 06-12-2022 10:32-0400 Body temperature 97.3 [degF] Dr. Tonio Fajardo Work Phone: [facility] 06-12-2022 10:32-0400 Diastolic blood pressure 63 mm[Hg] Dr. Tonio Fajardo Work Phone: [facility] 06-12-2022 10:32-0400 Heart rate 59 /min Dr. Tonio Fajardo Work Phone: [facility] 06-12-2022 10:32-0400 Respiratory rate 18 /min Dr. Tonio Fajardo Work Phone: [facility] 06-12-2022 10:32-0400 Systolic blood pressure 149 mm[Hg] Dr. Tonio Fajardo Work Phone: [facility] 05-30-2022 14:08-0400 Body height 167.[address] Tonio Fajardo Work Phone: [facility] Work Phone: 05-30-2022 14:05-0400 Body mass index (BMI) [Ratio] 29.7 kg/m2 Dr. Tonio Fajardo Work Phone: [facility] 05-30-2022 14:05-0400 Body temperature 97 [degF] Dr. Tonio Fajardo Work Phone: [facility] 05-30-2022 14:05-0400 Body weight 83.[address] Tonio Fajardo Work Phone: [facility] 05-30-2022 14:05-0400 Diastolic blood pressure 64 mm[Hg] Dr. Tonio Fajardo Work Phone: [facility] 05-30-2022 14:05-0400 Heart rate 65 /min Dr. Tonio Fajardo Work Phone: [facility] 05-30-2022 14:05-0400 Respiratory rate 18 /min Dr. Tonio Fajardo Work Phone: [facility] 05-30-2022 14:05-0400 SaO2% (BldA) [Mass fraction] 95 % Dr. Tonio Fajardo Work Phone: [facility] 05-30-2022 14:05-0400 Systolic blood pressure 145 mm[Hg] Dr. Tonio Fajardo Work Phone: [facility] 05-29-2022 14:48-0400 Body temperature 97.6 [degF] Dr. Tonio Fajardo Work Phone: [facility] Work Phone: 05-29-2022 14:48-0400 Diastolic blood pressure 51 mm[Hg] Dr. Tonio Fajardo Work Phone: [facility] Work Phone: 05-29-2022 14:48-0400 Heart rate 75 /min Dr. Tonio Fajardo Work Phone: [facility] Work Phone: 05-29-2022 14:48-0400 Systolic blood pressure 158 mm[Hg] Dr. Tonio Fajardo Work Phone: [facility] Work Phone: 05-24-2022 14:31-0400 Body height 167.[address] Tonio Fajardo Work Phone: [facility] Work Phone: 05-24-2022 14:22-0400 Body mass index (BMI) [Ratio] 29.7 kg/m2 Dr. Tonio Fajardo Work Phone: [facility] 05-24-2022 14:22-0400 Body temperature 98.2 [degF] Dr. Tonio Fajardo Work Phone: [facility] 05-24-2022 14:22-0400 Body weight 83.[address] Tonio Fajardo Work Phone: [facility] 05-24-2022 14:22-0400 Diastolic blood pressure 74 mm[Hg] Dr. Tonio Fajardo Work Phone: [facility] 05-24-2022 14:22-0400 Heart rate 74 /min Dr. Tonio Fajardo Work Phone: [facility] 05-24-2022 14:22-0400 Respiratory rate 15 /min Dr. Tonio Fajardo Work Phone: [facility] 05-24-2022 14:22-0400 SaO2% (BldA) [Mass fraction] 96 % Dr. Tonio Fajardo Work Phone: [facility] 05-24-2022 14:22-0400 Systolic blood pressure 135 mm[Hg] Dr. Tonio Fajardo Work Phone: [facility] 05-24-2022 13:26-0400 Body temperature 96.7 [degF] Dr. Tonio Fajardo Work Phone: [facility] Work Phone: 05-24-2022 13:26-0400 Diastolic blood pressure 57 mm[Hg] Dr. Tonio Fajardo Work Phone: [facility] Work Phone: 05-24-2022 13:26-0400 Heart rate 81 /min Dr. Tonio Fajardo Work Phone: [facility] Work Phone: 05-24-2022 13:26-0400 Respiratory rate 18 /min Dr. Tonio Fajardo Work Phone: [facility] Work Phone: 05-24-2022 13:26-0400 Systolic blood pressure 141 mm[Hg] Dr. Tonio Fajardo Work Phone: [facility] Work Phone: 05-17-2022 15:07-0400 Body temperature 97.5 [degF] Dr. Tonio Fajardo Work Phone: [facility] Work Phone: 05-17-2022 15:07-0400 Diastolic blood pressure 63 mm[Hg] Dr. Tonio Fajardo Work Phone: [facility] Work Phone: 05-17-2022 15:07-0400 Heart rate 71 /min Dr. Tonio Fajardo Work Phone: [facility] Work Phone: 05-17-2022 15:07-0400 Respiratory rate 20 /min Dr. Tonio Fajardo Work Phone: [facility] Work Phone: 05-17-2022 15:07-0400 Systolic blood pressure 142 mm[Hg] Dr. Tonio Fajardo Work Phone: [facility] Work Phone: 05-11-2022 16:01-0400 Body height 167.[address] Tonio Fajardo Work Phone: [facility] Work Phone: 05-11-2022 15:54-0400 Body mass index (BMI) [Ratio] 29.4 kg/m2 Dr. Tonio Fajardo Work Phone: [facility] Work Phone: 05-11-2022 15:54-0400 Body temperature 98.4 [degF] Dr. Tonio Fajardo Work Phone: [facility] Work Phone: 05-11-2022 15:54-0400 Body weight 82.[address] Tonio Fajardo Work Phone: [facility] Work Phone: 05-11-2022 15:54-0400 Diastolic blood pressure 67 mm[Hg] Dr. Tonio Fajardo Work Phone: [facility] Work Phone: 05-11-2022 15:54-0400 Heart rate 63 /min Dr. Tonio Fajardo Work Phone: [facility] Work Phone: 05-11-2022 15:54-0400 Respiratory rate 16 /min Dr. Tonio Fajardo Work Phone: [facility] Work Phone: 05-11-2022 15:54-0400 SaO2% (BldA) [Mass fraction] 96 % Dr. Tonio Fajardo Work Phone: [facility] Work Phone: 05-11-2022 15:54-0400 Systolic blood pressure 100 mm[Hg] Dr. Tonio Fajardo Work Phone: [facility] Work Phone: 05-11-2022 08:32-0400 Body mass index (BMI) [Ratio] 29.4 kg/m2 Dr. Tonio Fajardo Work Phone: [facility] Work Phone: 05-11-2022 08:32-0400 Body temperature 97.2 [degF] Dr. Tonio Fajardo Work Phone: [facility] Work Phone: 05-11-2022 08:32-0400 Body weight 82.[address] Tonio Fajardo Work Phone: [facility] Work Phone: 05-11-2022 08:32-0400 Diastolic blood pressure 62 mm[Hg] Dr. Tonio Fajardo Work Phone: [facility] Work Phone: 05-11-2022 08:32-0400 Heart rate 73 /min Dr. Tonio Fajardo Work Phone: [facility] Work Phone: 05-11-2022 08:32-0400 Respiratory rate 20 /min Dr. Tonio Fajardo Work Phone: [facility] Work Phone: 05-11-2022 08:32-0400 SaO2% (BldA) [Mass fraction] 96 % Dr. Tonio Fajardo Work Phone: [facility] Work Phone: 05-11-2022 08:32-0400 Systolic blood pressure 145 mm[Hg] Dr. Tonio Fajardo Work Phone: [facility] Work Phone: 04-28-2022 11:40-0400 Body temperature 97.4 [degF] Dr. Tonio Fajardo Work Phone: [facility] Work Phone: 04-28-2022 11:40-0400 Diastolic blood pressure 46 mm[Hg] Dr. Tonio Fajardo Work Phone: [facility] Work Phone: 04-28-2022 11:40-0400 Heart rate 66 /min Dr. Tonio Fajardo Work Phone: [facility] Work Phone: 04-28-2022 11:40-0400 Respiratory rate 20 /min Dr. Tonio Fajardo Work Phone: [facility] Work Phone: 04-28-2022 11:40-0400 SaO2% (BldA) [Mass fraction] 96 % Dr. Tonio Fajardo Work Phone: [facility] Work Phone: 04-28-2022 11:40-0400 Systolic blood pressure 138 mm[Hg] Dr. Tonio Fajardo Work Phone: [facility] Work Phone: 04-28-2022 09:44-0400 Inhaled oxygen flow rate 2 L/min Dr. Tonio Fajardo Work Phone: [facility] Work Phone: 04-28-2022 08:15-0400 Body height 167.[address] Tonio Fajardo Work Phone: [facility] Work Phone: 04-28-2022 08:15-0400 Body mass index (BMI) [Ratio] 28 kg/m2 Dr. Tonio Fajardo Work Phone: [facility] Work Phone: 04-28-2022 08:15-0400 Body weight 78.[address] Tonio Fajardo Work Phone: [facility] Work Phone: 04-26-2022 13:47-0400 Body temperature 97 [degF] Dr. Tonio Fajardo Work Phone: [facility] Work Phone: 04-26-2022 13:47-0400 Diastolic blood pressure 33 mm[Hg] Dr. Tonio Fajardo Work Phone: [facility] Work Phone: 04-26-2022 13:47-0400 Heart rate 80 /min Dr. Tonio Fajardo Work Phone: [facility] Work Phone: 04-26-2022 13:47-0400 Respiratory rate 18 /min Dr. Tonio Fajardo Work Phone: [facility] Work Phone: 04-26-2022 13:47-0400 Systolic blood pressure 118 mm[Hg] Dr. Tonio Fajardo Work Phone: [facility] Work Phone: 04-14-2022 11:11-0400 Body height 167.[address] Tonio Fajardo Work Phone: [facility] Work Phone: 04-14-2022 11:11-0400 Body mass index (BMI) [Ratio] 30.7 kg/m2 Dr. Tonio Fajardo Work Phone: [facility] Work Phone: 04-14-2022 11:11-0400 Body temperature 95.8 [degF] Dr. Tonio Fajardo Work Phone: [facility] Work Phone: 04-14-2022 11:11-0400 Body weight 86.[address] Tonio Fajardo Work Phone: [facility] Work Phone: 04-14-2022 11:11-0400 Diastolic blood pressure 68 mm[Hg] Dr. Tonio Fajardo Work Phone: [facility] Work Phone: 04-14-2022 11:11-0400 Heart rate 34 /min Dr. Tonio Fajardo Work Phone: [facility] Work Phone: 04-14-2022 11:11-0400 Respiratory rate 16 /min Dr. Tonio Fajardo Work Phone: [facility] Work Phone: 04-14-2022 11:11-0400 SaO2% (BldA) [Mass fraction] 91 % Dr. Tonio Fajardo Work Phone: [facility] Work Phone: 04-14-2022 11:11-0400 Systolic blood pressure 163 mm[Hg] Dr. Tonio Fajardo Work Phone: [facility] Work Phone: 04-14-2022 10:36-0400 Body temperature 96.7 [degF] Dr. Tonio Fajardo Work Phone: [facility] Work Phone: 04-14-2022 10:36-0400 Diastolic blood pressure 71 mm[Hg] Dr. Tonio Fajardo Work Phone: [facility] Work Phone: 04-14-2022 10:36-0400 Heart rate 64 /min Dr. Tonio Fajardo Work Phone: [facility] Work Phone: 04-14-2022 10:36-0400 Respiratory rate 23 /min Dr. Tonio Fajardo Work Phone: [facility] Work Phone: 04-14-2022 10:36-0400 SaO2% (BldA) [Mass fraction] 94 % Dr. Tonio Fajardo Work Phone: [facility] Work Phone: 04-14-2022 10:36-0400 Systolic blood pressure 153 mm[Hg] Dr. Tonio Fajardo Work Phone: [facility] Work Phone: 04-14-2022 08:24-0400 Body mass index (BMI) [Ratio] 30.2 kg/m2 Dr. Tonio Fajardo Work Phone: [facility] Work Phone: 04-14-2022 08:24-0400 Body weight 85.[address] Tonio Fajardo Work Phone: [facility] Work Phone: 04-12-2022 13:50-0400 Body temperature 97.8 [degF] Dr. Tonio Fajardo Work Phone: [facility] Work Phone: 04-12-2022 13:50-0400 Diastolic blood pressure 74 mm[Hg] Dr. Tonio Fajardo Work Phone: [facility] Work Phone: 04-12-2022 13:50-0400 Heart rate 69 /min Dr. Tonio Fajardo Work Phone: [facility] Work Phone: 04-12-2022 13:50-0400 Respiratory rate 18 /min Dr. Tonio Fajardo Work Phone: [facility] Work Phone: 04-12-2022 13:50-0400 Systolic blood pressure 107 mm[Hg] Dr. Tonio Fajardo Work Phone: [facility] Work Phone: 04-05-2022 13:34-0400 Body temperature 101.61 [degF] Steven Praisler-Wood GARLAND MACHINE OPERATOR.STATION SUPERINTENDENT Work Phone: [facility] 04-05-2022 13:34-0400 Body weight 87.09 kg Steven Praisler-Wood GARLAND MACHINE OPERATOR.STATION SUPERINTENDENT Work Phone: [facility] 04-05-2022 13:34-0400 Diastolic blood pressure 76 mm[Hg] Steven Praisler-Wood GARLAND MACHINE OPERATOR.STATION SUPERINTENDENT Work Phone: [facility] 04-05-2022 13:34-0400 Heart rate 76 /min Steven Praisler-Wood GARLAND MACHINE OPERATOR.STATION SUPERINTENDENT Work Phone: [facility] 04-05-2022 13:34-0400 Respiratory rate 16 /min Steven Praisler-Wood GARLAND MACHINE OPERATOR.STATION SUPERINTENDENT Work Phone: [facility] 04-05-2022 13:34-0400 SaO2% (BldA) [Mass fraction] 94 % Steven Praisler-Wood GARLAND MACHINE OPERATOR.STATION SUPERINTENDENT Work Phone: [facility] 04-05-2022 13:34-0400 Systolic blood pressure 122 mm[Hg] Steven Rodriguez APRN.[facility] Work Phone: [facility] 03-01-2022 13:16-0400 Body temperature 97.6 [degF] Dr. Tonio Fajardo Work Phone: [facility] Work Phone: 03-01-2022 13:16-0400 Diastolic blood pressure 73 mm[Hg] Dr. Tonio Fajardo Work Phone: [facility] Work Phone: 03-01-2022 13:16-0400 Heart rate 70 /min Dr. Tonio Fajardo Work Phone: [facility] Work Phone: 03-01-2022 13:16-0400 Respiratory rate 18 /min Dr. Tonio Fajardo Work Phone: [facility] Work Phone: 03-01-2022 13:16-0400 Systolic blood pressure 141 mm[Hg] Dr. Tonio Fajardo Work Phone: [facility] Work Phone: 02-08-2022 13:06-0400 Body temperature 98.1 [degF] Dr. Tonio Fajardo Work Phone: [facility] Work Phone: 02-08-2022 13:06-0400 Diastolic blood pressure 63 mm[Hg] Dr. Tonio Fajardo Work Phone: [facility] Work Phone: 02-08-2022 13:06-0400 Heart rate 83 /min Dr. Tonio Fajardo Work Phone: [facility] Work Phone: 02-08-2022 13:06-0400 Respiratory rate 20 /min Dr. Tonio Fajardo Work Phone: [facility] Work Phone: 02-08-2022 13:06-0400 Systolic blood pressure 131 mm[Hg] Dr. Tonio Fajardo Work Phone: [facility] Work Phone: 01-17-2022 10:56-0400 Body height 167.[address] Tonio Fajardo Work Phone: [facility] Work Phone: 01-17-2022 10:56-0400 Body mass index (BMI) [Ratio] 31.9 kg/m2 Dr. Tonio Fajardo Work Phone: [facility] Work Phone: 01-17-2022 10:56-0400 Body weight 89.[address] Tonio Fajardo Work Phone: [facility] Work Phone: 01-17-2022 10:56-0400 Diastolic blood pressure 44 mm[Hg] Dr. Tonio Fajardo Work Phone: [facility] Work Phone: 01-17-2022 10:56-0400 Heart rate 64 /min Dr. Tonio Fajardo Work Phone: [facility] Work Phone: 01-17-2022 10:56-0400 Respiratory rate 22 /min Dr. Tonio Fajardo Work Phone: [facility] Work Phone: 01-17-2022 10:56-0400 SaO2% (BldA) [Mass fraction] 95 % Dr. Tonio Fajardo Work Phone: [facility] Work Phone: 01-17-2022 10:56-0400 Systolic blood pressure 101 mm[Hg] Dr. Tonio Fajardo Work Phone: [facility] Work Phone: 01-17-2022 10:56-0400 Body height 167.[address] Tonio Fajardo Work Phone: [facility] Work Phone: 01-17-2022 10:56-0400 Body mass index (BMI) [Ratio] 31.9 kg/m2 Dr. Tonio Fajardo Work Phone: [facility] Work Phone: 01-17-2022 10:56-0400 Body weight 89.[address] Tonio Fajardo Work Phone: [facility] Work Phone: 01-17-2022 10:56-0400 Diastolic blood pressure 44 mm[Hg] Dr. Tonio Fajardo Work Phone: [facility] Work Phone: 01-17-2022 10:56-0400 Heart rate 64 /min Dr. Tonio Fajardo Work Phone: [facility] Work Phone: 01-17-2022 10:56-0400 Respiratory rate 22 /min Dr. Tonio Fajardo Work Phone: [facility] Work Phone: 01-17-2022 10:56-0400 SaO2% (BldA) [Mass fraction] 95 % Dr. Tonio Fajardo Work Phone: [facility] Work Phone: 01-17-2022 10:56-0400 Systolic blood pressure 101 mm[Hg] Dr. Tonio Fajardo Work Phone: [facility] Work Phone: 01-04-2022 12:59-0400 Body temperature 96.4 [degF] Dr. Tonio Fajardo Work Phone: [facility] Work Phone: 01-04-2022 12:59-0400 Diastolic blood pressure 64 mm[Hg] Dr. Tonio Fajardo Work Phone: [facility] Work Phone: 01-04-2022 12:59-0400 Heart rate 70 /min Dr. Tonio Fajardo Work Phone: [facility] Work Phone: 01-04-2022 12:59-0400 Respiratory rate 16 /min Dr. Tonio Fajardo Work Phone: [facility] Work Phone: 01-04-2022 12:59-0400 Systolic blood pressure 135 mm[Hg] Dr. Tonio Fajardo Work Phone: [facility] Work Phone: 12-21-2021 13:10-0400 Body temperature 97 [degF] [facility] Work Phone: 12-21-2021 13:10-0400 Diastolic blood pressure 62 mm[Hg] [facility] Work Phone: 12-21-2021 13:10-0400 Heart rate 88 /min [facility] Work Phone: 12-21-2021 13:10-0400 Systolic blood pressure 173 mm[Hg] [facility] Work Phone: 12-18-2021 00:38-0400 Respiratory rate 16 /min [facility] Work Phone: 11-29-2021 13:03-0400 Body temperature 97.4 [degF] [facility] Work Phone: 11-29-2021 13:03-0400 Diastolic blood pressure 43 mm[Hg] [facility] Work Phone: 11-29-2021 13:03-0400 Heart rate 69 /min [facility] Work Phone: 11-29-2021 13:03-0400 Respiratory rate 16 /min [facility] Work Phone: 11-29-2021 13:03-0400 Systolic blood pressure 134 mm[Hg] [facility] Work Phone: 11-09-2021 13:07-0400 Body temperature 97 [degF] [facility] Work Phone: 11-09-2021 13:07-0400 Diastolic blood pressure 41 mm[Hg] [facility] Work Phone: 11-09-2021 13:07-0400 Heart rate 73 /min [facility] Work Phone: 11-09-2021 13:07-0400 Respiratory rate 18 /min [facility] Work Phone: 11-09-2021 13:07-0400 Systolic blood pressure 126 mm[Hg] [facility] Work Phone: Encounters Encounter Date Encounter Type Care Provider Facility Start: 04-19-2025 ambulatory Kwaku Narayanan [facility] ility:[facility] Start: 04-19-[address] Tonio [...] management of inpatient DR DAVID STERLING MD [facility] Start: 04-12-2025 End: 04-13-2025 Dr. Tonio Fajardo [...] Unit Start: 04-10-2025 End: 04-10-2025 Carol Merry -[facility] Work Phone: Start: 04-10-2025 Dr. Nicola Roman MD -[facility] Work Phone: Start: 04-10-2025 End: 04-10-[address] Tonio Fajardo DO Work Phone: -[facility] Start: 04-10-2025 End: 04-10-2025 Dr. Issa Looney MD [facility] Work Phone: Start: 04-09-2025 Dr. Santos Hsu MD -[facility] Start: 04-09-2025 Dr. Nicola Roman MD [facility]patient Physicians Work Phone: Start: 04-08-2025 Dr. Issa Lonoey MD [facility] Start: 04-08-2025 Dr. Nicola Roman MD [facility] Work Phone: Start: 04-07-2025 Dr. Nicola Roman MD [facility] Work Phone: Start: 04-06-2025 Dr. Deric Lantigua MD [facility] Inpatient Physicians Work Phone: Start: 04-05-2025 [...] 04-02-2025 End: 04-02-2025 ambulatory Carmelina E Aida Facility:[facility] Start: 03-27-2025 End: 03-27-[address] Tonio Fajardo DO Work Phone: -Pulmonary Services/Neurology Start: 03-27-2025 End: 03-27-2025 Patient encounter procedure Leslie DAMIAN -Pulmonary Services/Neurology Work Phone: Start: 03-27-2025 End: 03-27-2025 Leslie DAMIAN -Pulmonary Services/Neurology Work Phone: Start: 03-27-2025 End: 03-27-2025 ambulatory Leslie DAMIAN Facility:[facility] Start: 03-18-2025 End: 03-18-[address] Tonio Fajardo DO Work Phone: -[facility] Start: 03-18-2025 End: 03-18-[address] Tonio Fajardo DO -[facility] Start: 03-18-2025 End: 03-18-2025 Dr. Tonio Fajardo DO -[facility] Start: 03-17-2025 End: 03-17-2025 Patient encounter procedure Leslie DAMIAN -[facility] Work Phone: Start: 03-17-2025 End: 03-17-2025 Leslie DAMIAN -[facility] Work Phone: Start: 03-17-2025 End: 03-18-[address] Tonio Fajardo DO Work Phone: -[facility] Start: 03-15-2025 End: 03-15-2025 Dr. Alex Matias MD -Emergency [facility] Work Phone: Start: 03-15-2025 End: 03-15-2025 Emergency department patient visit Dr. Tonio Fajardo DO Work Phone: -Emergency Department Work Phone: Start: 03-09-2025 Non-patient / Non-visit Dr. Deric Lantigua MD [facility] Work Phone: Start: 03-09[facility]20[facility] Work Phone: Start: 03-09-2025 Non-patient / Non-visit Dr. Willian Glaser MD [facility] Start: 03-09-2025 Dr. Willian Glaser MD [facility] Start: 03-08-2025 [facility]-patient / [facility] Start: 03-08-2025 Dr. Marjorie Green MD [facility] Start: 03-07-2025 Non-patient / Non-visit Dr. Deric Lantigua MD [facility] Work Phone: Start: 03-07-2025 Dr. Deric Lantigua MD [facility] Inpatient Physicians Work Phone: Start: 03-06-2025 Non-patient / Non-visit Dr. Deric Lantigua MD [facility] Work Phone: Start: 03-06-2025 Dr. Deric Lantigua MD [facility] Inpatient Physicians Work Phone: Start: 03-06-2025 [facility]-patient / [facility] Start: 03-06-2025 Dr. Marjorie Green MD [facility] Start: 03-05-2025 ambulatory Marjorie Green Facility:[facility] Start: 03-05-2025 Non-patient / Non-visit Dr. Marjorie castellano MD -[facility] Start: 03-05-2025 Dr. Marjorie Green MD -[facility] Start: 03-05-2025 Non-patient / Non-visit Dr. Deric Lantigua MD -[facility] Work Phone: Start: 03-05-2025 Dr. Deric Lantigua MD -[facility] Inpatient [facility] Work Phone: Start: 03-04-2025 ambulatory Nicola Lindsey Facilmingo ty:[facility] Start: 03-04-2025 End: 03-09-2025 Evaluation and management of inpatient Dr. Nicola Lindsey DO -Progressive Care Unit Work Phone: Start: 03-04-2025 End: 03-09-2025 Dr. Deric Lantigua MD -Progressive Care U nit Work Phone: Start: 11-06-[address] Russ Zamora MD -[facility] Start: 11-06-2024 End: 11-06-[address] Russ Zamora MD -[facility] Work Phone: Start: 11-06-2024 End: 11-06-[facility] Start: 10-30-2024 End: 10-30-[address] Tonio Fajardo DO Work Phone: [facility] Work Phone: Start: 10-30-2024 End: 10-30-[address] Russ Zamora MD -Cat Scan, [facility] Work Phone: Start: 10-30-2024 End: 10-30-2024 ambulatory Russ Zamora Facility:[facility] Start: 10-23-2024 End: 10-23-2024 Patient encounter procedure Lorie ZHONG -[place] [facility] Work Phone: Start: 10-23-2024 End: 10-23-2024 ambulatory Tonio Fajardo Facility:[facility] Start: 10-20-2024 End: 10-20-[address] Tonio Fajardo DO Work Phone: [facility] Work Phone: Start: 10-20-2024 End: 10-20-[address] Tonio Fajardo DO -Laboratory, [facility] Start: 10-20-2024 End: 10-20-2024 ambulatory Tonio Fajardo Facility:[facility] Start: 10-17-2024 ambulatory Lorie Mart DECK SUPERVIS[employer] Fac ility:[facility] Start: 10-17-2024 Non-patient / Non-visit Dr. Tyrell zuniga DO -[facility] Start: 10-16-2024 End: 10-16-[address] Tonio Fajardo DO Work Phone: [facility] Work Phone: Start: 10-16-2024 End: 10-16-2024 Patient encounter procedure Lorie Mart DECK SUPERVISOR-C -Pulmonary Services/Neurology Work Phone: Start: 10-16-2024 End: 10-16-2024 ambulatory Lorie Mart NP Facility:[facility] Start: 09-25-2024 End: 09-25-2024 Patient encounter procedure Leslie Arriaga PA -[facility] Work Phone: Start: 09-25-2024 End: 09-25-2024 ambulatory Leslie DAMIAN [facility] Start: 09-25-2024 End: 09-25-2024 ambulatory Leslie DAMIAN Facility:[facility] Start: 07-03-2024 End: 07-03-[address] Joaquim Suárez DPM -Laboratory, Specimen Work Phone: Start: 07-03-2024 End: 07-03-2024 ambulatory Joaquim Suárez Facility:[facility] Start: 06-17-2024 End: 06-17-2024 ambulatory Joaquim Suárez Facility:[facility] Start: 05-05-2024 End: 05-05-2024 ambulatory [facility] Facility[facility] Start: 04-28-2024 End: 04-28-2024 ambulatory [facility] Facility:[facility] Start: 12-24-2023 End: 12-24-[address] Toino Fajardo Work Phone: [facility] Work Phone: Start: 12-24-2023 End: 12-24-[address] Tonio Fajardo Work Phone: [facility]-Laboratory, Specimen Work Phone: Start: 11-12-2023 End: 11-12-[address] Tonio Fajardo Work Phone: [facility] Work Phone: Start: 11-06-[address] Tonio Fajardo Work Phone: [facility] Start: 10-31-2023 End: 10-31-[address] Tonio Fajardo Work Phone: [facility] Work Phone: Start: 10-18-2023 End: 10-18-[address] Tonio Fajardo Work Phone: [facility] Work Phone: Start: 10-12-2023 End: 10-12-[address] Tonio Fajardo Work Phone: [facility] Work Phone: Start: 10-12-2023 End: 10-12-[address] Tonio Fajardo Work Phone: [facility]-Cat Scan, [facility] Work Phone: Start: 08-29-2023 End: 08-29-[address] Tonio Fajardo Work Phone: [facility] Work Phone: Start: 08-22-2023 Non-patient / Non-visit Dr. Min Fajardo Work Phone: [facility] Start: 08-22-2023 End: 08-22-[address] Tonio Fajardo Work Phone: [facility]-Cardiovascular Services Work Phone: Start: 07-26-2023 End: 07-26-[address] Tonio Fajardo Work Phone: [facility] Work Phone: Start: 07-26-2023 End: 07-26-[address] Tonio Fajardo Work Phone: [facility] Work Phone: Start: 07-25-2023 End: 07-25-[address] Tonio Fajardo Work Phone: [facility]-Pulmonary Medicine [facility] Work Phone: Start: 06-22-2023 End: 06-22-[address] Tonio Fajardo Work Phone: [facility] Work Phone: Start: 06-22-2023 End: 06-22-[address] Tonoi Fajardo Work Phone: [facility]-Laboratory, Specimen Work Phone: Start: 06-08-2023 End: 06-08-2023 Admission to same day surgery center Dr. Tonio Fajardo Work Phone: [facility]-Surgical Day Care Start: 06-08-2023 End: 06-08-[address] Tonio Fajardo Work Phone: [facility] Work Phone: Start: 05-02-2023 End: 05-19-[address] [facility]ardo [facility] Work Phone: Start: 04-20-2023 Non-patient / Non-visit Dr. Min Fajardo Work Phone: [facility] Start: 04-18-2023 End: 04-19-[address] Tonio Fajardo Work Phone: [facility] Work Phone: Start: 04-18-2023 End: 04-19-[address] Tonio Fajardo Work Phone: [facility] Work Phone: Start: 04-17-[address] Tonio Fajardo Work Phone: [facility] On[facility] Start: 04-17-2023 End: 04-17-[address] Tonio Fajardo Work Phone: [facility] Work Phone: Start: 04-10-2023 End: 04-10-[address] Tonio Fajardo Work Phone: [facility] Work Phone: Start: 04-10-2023 End: 04-10-[address] Tonio Fajardo Work Phone: [facility] Work Phone: Start: 04-02-2023 Non-patient / Non-visit Dr. Min Fajardo Work Phone: [facility] Start: 04-02-[address] Tonio Fajardo [facility] Work Phone: Start: 03-19-2023 Non-patient / Non-visit Dr. Min Fajardo Work Phone: [facility] Start: 03-19-2023 End: 03-19-[address] Tonio Fajardo Work Phone: [facility] Work Phone: Start: 03-19-2023 End: 03-19-[address] Tonio Fajardo [facility] Work Phone: Start: 03-05-2023 Non-patient / Non-visit Dr. Min Fajardo Work Phone: [facility] Start: 02-23-2023 End: 02-23-[address] Tonio Fajardo Work Phone: [facility] Work Phone: Start: 02-19-2023 Non-patient / Non-visit Dr. Min Fajardo Work Phone: [facility] Start: 02-05-2023 Non-patient / Non-visit Dr. Min Fajardo Work Phone: [facility] Start: 02-05-2023 End: 02-16-[address] Tonio Fajardo Work Phone: [facility] Work Phone: Start: 02-05-2023 End: 02-16-[address] Tonio Fajardo [facility] Work Phone: Start: 01-22-2023 Non-patient / Non-visit Dr. Min Fajardo Work Phone: [facility] Start: 01-08-2023 Non-patient / Non-visit Dr. Min Fajardo Work Phone: [facility] Start: 01-08-2023 End: 01-17-[address] Tonio Fajardo Work Phone: [facility] Work Phone: Start: 01-08-2023 End: 01-17-[address] Tonio [facility]ajardo [facility] Start: 12-30-2022 End: 12-31-2022 Emergency department patient visit Dr. Tonio Fajardo Work Phone: [facility]-Emergency Department Start: 12-25-2022 Non-patient / Non-visit Dr. Min Fajardo Work Phone: [facility] Start: 12-25-[address] Tonio Fajardo Work Phone: [facility] Start: 12-18-2022 Non-patient / Non-visit Dr. Min Fajardo Work Phone: [facility] Start: 12-12-2022 End: 12-12-[address] Tonio Fajardo [facility] Start: 12-11-2022 Non-patient / Non-visit Dr. Min Fajardo Work Phone: [facility] Start: 12-11-2022 End: 12-17-[address] Tonio Fajardo Work Phone: [facility] Work Phone: Start: 12-11-2022 End: 12-17-[address] Tonio Fajardo Work Phone: [facility] Start: 12-06-2022 Non-patient / Non-visit [...] Tonio [facility]ajardo [facility] Start: 10-30-2022 Non-patient / Non-visit Dr. Min Fajardo Work Phone: [facility] Start: 10-23-2022 Non-patient / Non-visit Dr. Min Fajardo Work Phone: [facility] Start: 10-18-2022 Non-patient / Non-visit Dr. Min Fajardo Work Phone: [facility] Start: 10-16-[address] Tonio Fajardo Work Phone: [facility] On[facility] Start: 10-16-2022 End: 10-16-[address] Tonio Fajardo Work Phone: [facility] Start: 10-09-2022 Non-patient / Non-visit Dr. Min Fajardo Work Phone: [facility] Start: 10-09-2022 End: 10-09-[address] Tonio Fajardo Work Phone: [facility] Start: 10-09-2022 End: 10-17-[address] Tonio Fajardo Work Phone: [facility] Work Phone: Start: 10-09-2022 End: 10-17-[address] Tonio Fajardo [facility] Start: 10-09-[address] Tonio Fajardo Work Phone: [facility] Start: 10-02-2022 Non-patient / Non-visit Dr. Min Fajardo Work Phone: [facility] Start: 10-02-2022 End: 10-02-[address] Tonio Fajardo Work Phone: [facility] Start: 09-25-2022 Non-patient / Non-visit Dr. Min Fajardo Work Phone: [facility] Start: 09-18-2022 Non-patient / Non-visit Dr. Min Fajardo Work Phone: [facility] Start: 09-18-2022 End: 09-19-[address] Tonio Fajardo Work Phone: [facility] Work Phone: Start: 09-18-2022 End: 09-19-[address] Tonio Fajardo Work Phone: [facility] Start: 08-29-2022 Non-patient / Non-visit Dr. Min Fajardo Work Phone: [facility] Start: 08-15-2022 Non-patient / Non-visit Dr. Min Fajardo Work Phone: [facility] Start: 08-15-2022 End: 08-19-[address] Tonio Fajardo Work Phone: [facility] Work Phone: Start: 08-15-2022 End: 08-19-[address] Tonio Fajardo Work Phone: [facility] Start: 08-08-2022 End: 08-08-[address] Tonio Fajardo Work Phone: [facility] Start: 08-01-2022 Non-patient / Non-visit Dr. Min Fajardo Work Phone: [facility] Start: 07-28-2022 Telephone encounter Steven Parra APRN.CNP Work Phone: [facility] Comment on above: Patient Update Start: 07-19-2022 End: 07-19-2022 Patient encounter procedure Dr. Tonio Fajardo Work Phone: [facility] Start: 07-18-2022 Non-patient / Non-visit Dr. Min Fajardo Work Phone: [facility] Start: 07-18-2022 End: 07-19-[address] Tonio Fajardo Work Phone: [facility] Work Phone: Start: 07-18-2022 End: 07-19-[address] Tonio Fajardo Work Phone: [facility] Start: 07-17-2022 End: 07-17-[address] Tonio Fajardo Work Phone: [facility] Start: 07-09-[address] Tonio Fajardo Work Phone: [facility] Start: 07-09-2022 Non-patient / Non-visit Dr. Min Fajardo Work Phone: [facility] Start: 07-05-2022 End: 07-05-[address] Tonio Fajardo Work Phone: [facility] Start: 06-28-2022 End: 06-28-[address] Tonio Fajardo Work Phone: [facility] Start: 06-26-2022 Non-patient / Non-visit Dr. Min Fajardo Work Phone: [facility] Start: 06-21-2022 End: 06-21-[address] Tonio Fajardo Work Phone: [facility] Start: 06-19-[address] Tonio Fajardo Work Phone: [facility] Start: 06-14-2022 End: 06-14-[address] Tonio Fajardo Work Phone: [facility] Start: 06-12-2022 Non-patient / Non-visit Dr. Min Fajardo Work Phone: [facility] Start: 06-12-2022 End: 06-19-[address] Tonio Fajardo Work Phone: [facility] Work Phone: Start: 06-12-2022 End: 06-19-[address] [facility] Start: 06-06-2022 Non-patient / Non-visit Dr. Min Fajardo Work Phone: [facility] Start: 06-02-2022 Non-patient / Non-visit Dr. Min Fajardo Work Phone: [facility] Start: 06-02-2022 End: 06-02-[address] Tonio Fajardo Work Phone: [facility] Work Phone: Start: 06-02-2022 End: 06-02-[address] Tonio Fajardo Work Phone: [facility]/Neurology Start: 06-01-2022 Non-patient / Non-visit Dr. Min Fajardo Work Phone: [facility] Start: 06-01-[address] Tonio [facility]ajardo [facility] Start: 05-30-[address] Tonio Fajardo Work Phone: [facility] Start: 05-30-2022 End: 05-30-[address] Tonio Fajardo Work Phone: [facility] Start: 05-29-2022 Non-patient / Non-visit Dr. Min Fajardo Work Phone: [facility] Start: 05-29-[address] Tonio Fajardo Work Phone: [facility] Start: 05-24-2022 End: 05-24-[address] Tonio Fajardo Work Phone: [facility] Start: 05-24-2022 Non-patient / Non-visit Dr. Min Fajardo Work Phone: [facility] Start: 05-24-[address] Tonio Fajardo Work Phone: [facility] Start: 05-22-2022 End: 05-22-[address] Tonio Fajardo Work Phone: [facility] Work Phone: Start: 05-22-2022 End: 05-22-[address] Tonio Fajardo Work Phone: [facility] Start: 05-17-2022 Non-patient / Non-visit Dr. Min Fajardo Work Phone: [facility] Start: 05-17-2022 End: 05-19-[address] Tonio Fajardo Work Phone: [facility] Work Phone: Start: 05-17-2022 End: 05-19-[address] [facility]ajardo [facility] Start: 05-17-[address] Tonio Fajardo Work Phone: [facility] Start: 05-11-2022 End: 05-11-[address] Tonio Fajardo Work Phone: [facility] Start: 05-11-2022 End: 05-11-[address] Tonio [facility]ajardo [facility] Start: 04-28-2022 Non-patient / Non-visit Dr. Min Fajardo Work Phone: [facility] Start: 04-28-2022 End: 04-28-[address] Tonio Fajardo Work Phone: [facility] Work Phone: Start: 04-28-2022 End: 04-28-[address] Tonio Fajardo Work Phone: [facility] Start: 04-26-[address] Tonio Fajardo [facility] Start: 04-14-2022 End: 04-14-[address] Tonio Fajardo Work Phone: [facility] Work Phone: Start: 04-14-2022 End: 04-14-[address] Tonio Fajardo Work Phone: [facility] Start: 04-14-2022 End: 04-14-2022 Emergency department patient visit Dr. Tonio Fajardo Work Phone: [facility] Start: 04-12-2022 End: 04-12-[address] Tonio Fajardo Work Phone: [facility] Work Phone: Start: 04-12-2022 End: 04-12-[address] Tonio Fajardo Work Phone: [facility] Start: 04-12-2022 End: 04-19-[address] Tonio Fajardo Work Phone: [facility] Work Phone: Start: 04-12-2022 End: 04-19-[address] Tonio Fajardo [facility] Start: 04-12-[address] Tonio Fajardo [facility] Phone[facility] [place] Start: 04-06-2022 Telephone encounter Carlos Rivera MD Work Phone: [facility] Comment on above: Results (COVID+) Start: 04-05-2022 End: 04-05-2022 ambulatory TONIO FAJARDO Facility:[facility] Start: 04-05-2022 Telephone encounter Steven Parra APRN.CNP Work Phone: [facility] Comment on above: Results Start: 04-05-2022 End: 04-05-2022 Subsequent hospital visit by physician Xr [facility] Work Phone: Radiology Comment on above: Acute cough [R05.1] Start: 04-05-2022 End: 04-05-2022 Patient encounter procedure Steven Rodriguez APRN.CNP Work Phone: [facility] Comment on above: Burning with urinati on (Primary Dx); Acute cough; Suspected COVID-19 virus infection Start: 03-01-2022 End: 03-19-[address] Tonio Fajardo Work Phone: [facility] Start: 02-08-2022 End: 02-16-[address] Tonio Fajardo Work Phone: [facility] Start: 01-17-2022 End: 01-17-[address] Tonio Fajardo Work Phone: [facility] Start: 01-04-2022 End: 01-17-[address] Tonio Fajardo Work Phone: [facility] Start: 12-21-2021 Registered Recurring [facility] Start: 12-19-2021 End: 12-19-2021 [facility] Start: 11-29-2021 End: 12-17-2021 Nutrition therapy [facility] Start: 11-09-2021 End: 11-17-2021 Nutrition therapy [facility] Procedures Date Procedure Procedure Detail [...] Blood count leukocyt e wbc automated Dr. Tonoi Fajardo DO Work Phone: Start: 04-10-2025 Glucose [...] blood cell count procedure Dr. Tonio Fajardo [employer] Work Phone: Start: 03-18-2025 Platelet mean volume determination Dr. Tonio Fajardo [employer] Work Phone: Start: 03-09-2025 Blood count smear mc rscp w/mnl difrntl wbc count Dr. Tonio Fajardo [employer] Work Phone: Start: 03-09-[address] Tonio Fajardo [employer] Work Phone: Start: 03-09-2025 Mean corpuscular hem oglobin concentration determination Dr. Tonio Fajardo [employer] Work Phone: Start: 03-09-2025 Nucleated red blood cell count procedure Dr. Tonio Fajardo [employer] Work Phone: Start: 03-09-2025 Platelet mean volume determination Dr. Tonio Fajardo [employer] Work Phone: Start: 03-06-[address] Tonio Fajardo [employer] Work Phone: Start: 03-06-2025 Serum inorganic phos phate measurement Dr. Tonio Fajardo DO Work Phone: Start: 03-05-[address] Tonio Fajardo [employer] Work Phone: Start: 03-05-2025 Total cholesterol:HD L ratio measurement Dr. Tonio Fajardo [employer] Work Phone: Start: 03-05-2025 Plain chest X-ray Dr. Silvana Fajardo [employer] Work Phone: Start: 03-04-2025 Urine microscopy: red cells Dr. Tonio Fajardo [employer] Work Phone: Start: 03-04-2025 Urnls dip stick/tabl [...] above: Sent directly to [facility] per ordering physician. 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 Work Phone: Start: 04-05-2022 Urnls dip stick/tabl et rgnt auto w/o microscopy Onelia Cuevas STATION SUPERINTENDENT Work Phone: Start: 11-02-2021 X-ray of both [...] Date Care Activity Detail Author Start: 04-19-2025 [facility] Start: 04-19-2025 End: 04-19-2025 Serum inorganic phosphate measurement [facility] Start: 04-19-2025 Verification routine [facility] Start: 04-19-2025 Hospital admission, emergency, from emergency room, medical nature [facility] Start: 04-19-2025 Admission procedure [facility] Start: 04-19-2025 End: 04-19-2025 [facility] Start: 04-19-2025 Patient discharge [facility] Start: 04-18-2025 [facility] Start: 04-18-2025 Development of care plan [facility] Start: 04-18-2025 Developing a treatme nt plan [facility] Start: 04-18-2025 Consultation for treatment [facility] Start: 04-18-2025 Wound care [facility] Start: 04-17-2025 Admission procedure [facility] Start: 04-17-2025 Introduction of urin dakota catheter [facility] Start: 04-17-2025 Measuring intake and output [facility] Start: 04-17-2025 Patient referral to dietitian [facility] Start: 04-17-2025 Referral to occupati onal therapist [facility] Start: 04-17-2025 Referral to service [facility] Start: 04-17-2025 Vital signs measurements [facility] Start: 04-17-2025 [facility] Start: 04-17-2025 Oxygen therapy [facility] Start: 04-13-2025 Development of care plan [facility] Start: 04-13-2025 End: 04-13-2025 [facility] Start: 04-13-2025 Patient discharge [facility] Start: 04-12-2025 [facility] Start: 04-11-2025 Referral to occupati onal therapist [facility] Start: 04-11-2025 Developing a treatme nt plan [facility] Start: 04-11-2025 [facility] Start: 04-11-2025 Wound care [facility] Start: 04-11-2025 Consultation for treatment [facility] Start: 04-11-2025 Contact precautions [facility] Start: 04-10-2025 Following clinical p athway protocol [facility] Start: 04-10-2025 Admission procedure [facility] Start: 04-10-2025 Introduction of urin dakota catheter [facility] Start: 04-10-2025 Measuring intake and output [facility] Start: 04-10-2025 End: 04-11-2025 Patient referral to dietitian [facility] Start: 04-10-2025 Referral to occupati onal therapist [facility] Start: 04-10-2025 Referral to service [facility] Start: 04-10-2025 Vital signs measurements [facility] Start: 04-10-2025 Oxygen therapy [facility] Start: 04-10-2025 Patient discharge [facility] Start: 04-10-2025 End: 04-10-2025 Microbial culture, body fluid [facility] Start: 04-10-2025 Anaerobic microbial culture [facility] Start: 04-10-2025 End: 04-10-2025 [facility] Start: 04-09-2025 Referral to service [facility] Start: 04-09-2025 Care planning and pr oblem solving actions [facility] Start: 04-09-2025 Assessment of risk o f venous thromboembolism [facility] Start: 04-09-2025 Catheterization of vein [facility] Start: 04-09-2025 Notification of physician [facility] Start: 04-09-2025 Taking patient vital signs [facility] Start: 04-09-2025 Wound care [facility] Start: 04-09-2025 End: 04-09-2025 [facility] Start: 04-09-2025 Care planning and pr oblem solving actions [facility] Start: 04-09-2025 [facility] Start: 04-08-2025 Catheterization of vein [facility] Start: 04-08-2025 Notification of physician [facility] Start: 04-08-2025 [facility] Start: 04-08-2025 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 worker [facility] Start: 04-08-2025 End: 04-08-2025 Referral to service [facility] Start: 04-07-2025 Referral to occupati onal therapist [facility] Start: 04-07-2025 Referral to service [facility] Start: 04-07-2025 Provision of activit y privileges [facility] Start: 04-07-2025 Wound care [facility] Start: 04-06-2025 [facility] Start: 04-06-2025 Continuous pulse oximetry [facility] Start: 04-06-2025 Consultation for treatment [facility] Start: 04-06-2025 XR Chest Single view [facility] Start: 04-06-2025 [facility] Start: 04-06-2025 Inhalation therapy procedure [facility] Start: 04-05-2025 Following clinical p athway protocol [facility] Start: 04-05-2025 Assessment of risk o f venous thromboembolism [facility] Start: 04-05-2025 Care regimes management [facility] Start: 04-05-2025 Catheterization of vein [facility] Start: 04-05-2025 Insertion of cathete r into peripheral vein [facility] Start: 04-05-2025 Measuring intake and output [facility] Start: 04-05-2025 Notification of physician [facility] Start: 04-05-2025 Oxygen therapy [facility] Start: 04-05-2025 Providing care accor ding to standard [facility] Start: 04-05-2025 Provision of activit y privileges [facility] Start: 04-05-2025 Referral to occupati onal therapist [facility] Start: 04-05-2025 Referral to service [facility] Start: 04-05-2025 End: 04-05-2025 [facility] Start: 04-05-2025 Referral to division operations manager [facility] Start: 04-05-2025 Verification routine [facility] Start: 04-05-2025 Urinalysis complete panel - Urine [facility] Start: 04-05-2025 Admission procedure [facility] Start: 04-05-2025 Hospital admission, emergency, from emergency room, medical nature [facility] Start: 04-05-2025 End: 04-05-2025 [facility] Start: 04-05-2025 Patient referral to dietitian [facility] Start: 03-27-2025 24 Hour ECG [facility] Start: 03-15-2025 [facility] Start: 03-15-2025 Control nasal hemorr min anterior simple [facility] Start: 03-09-2025 Referral to service [facility] Start: 03-09-2025 Patient discharge [facility] Start: 03-08-2025 Application of elast ic bandage [facility] Start: 03-07-2025 Introduction of urin dakota catheter [facility] Start: 03-06-2025 Inhalation therapy procedure [facility] Start: 03-05-2025 [facility] Start: 03-05-2025 Care planning and pr oblem solving actions [facility] Start: 03-05-2025 Chest 1 View (Portable) Chest 1 View (Portable) [facility] Start: 03-05-2025 XR Chest Single view [facility] Start: 03-05-2025 Care planning and pr oblem solving actions [facility] Start: 03-04-2025 Following clinical p athway protocol [facility] Start: 03-04-2025 Assessment of risk o f venous thromboembolism [facility] Start: 03-04-2025 Care regimes management [facility] Start: 03-04-2025 Catheterization of vein [facility] Start: 03-04-2025 Insertion of cathete r into peripheral vein [facility] Start: 03-04-2025 Measuring intake and output [facility] Start: 03-04-2025 Notification of physician [facility] Start: 03-04-2025 Oxygen therapy [facility] Start: 03-04-2025 Providing care accor ding to standard [facility] Start: 03-04-2025 Provision of activit y privileges [facility] Start: 03-04-2025 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 worker [facility] Start: 03-04-2025 Referral to occupati onal therapist [facility] Start: 03-04-2025 Referral to service [facility] Start: 03-04-2025 End: 03-04-2025 [facility] Start: 03-04-2025 Hospital admission, emergency, from emergency room, medical nature [facility] Start: 03-04-2025 Verification routine [facility] Start: 03-04-2025 Admission procedure [facility] Start: 03-04-2025 Thyroid stimulating hormone measurement [facility] Start: 03-04-2025 [facility] Start: 03-04-2025 Patient referral to dietitian [facility] Start: 04-20-2024 Covid-19 Vaccine ( season) Covid-19 Vaccine ( season) [facility] Start: 04-20-2024 Influenza vaccination Influenza Vacc ine (#1) [facility] Start: 08-20-2023 Advance Directive Discussion Advance Directive Discussion [facility] Start: 06-22-2023 [facility] Start: 06-08-2023 Patient discharge [facility] Start: 06-08-2023 Anes open proc bones lower leg/ankle/foot nos ANESTH LOWER LEG BONE SURG [facility] Start: 06-08-2023 Osteot w/wo lngth shrt/corrj 1st metar INCISION OF METATARSAL [facility] Start: 06-08-2023 Prep site f/s/n/h/f/ g/m/d gt 1st 100 sq cm/1pct WOUND PREP F/N/HF/G [facility] Start: 06-08-2023 Sub grft f/s/n/h/f/g /m/d <100sq cm 1st 25 sq cm SKIN SUB GRAFT FACE/NK/HF/G [facility] Start: 06-08-2023 Fluoroscopic guidance O.R. Fluoro fo r C-Arm [facility] Start: 06-08-2023 Radiography of foot Foot 2 Views [facility] Start: 12-30-2022 [facility] Start: 12-30-2022 End: 12-30-2022 Blood culture [facility] Start: 12-30-2022 End: 12-30-2022 [facility] Start: 10-16-2022 CBC W Auto Different ial panel - Blood [facility] Start: 10-16-2022 Lactate dehydrogenas e measurement [facility] Start: 10-16-2022 End: 10-16-2022 [facility] Start: 07-18-2022 [facility] Work Phone: Start: 05-18-2022 [facility] Work Phone: Start: 05-11-2022 Patient referral [facility] Work Phone: Start: 04-28-2022 CORE NDL BX LNG/MED PERQ CORE NDL BX LNG/MED PERQ [facility] Work Phone: Start: 04-28-2022 Following clinical p athway protocol [facility] Work Phone: Start: 04-28-2022 Catheterization of vein [facility] Work Phone: Start: 04-28-2022 Oxygen therapy [facility] Work Phone: Start: 04-28-2022 Patient discharge [facility] Work Phone: Start: 04-28-2022 Vital signs measurements [facility] Work Phone: Start: 04-20-2022 Influenza vaccination INFLUENZA (#1) [facility] Start: 04-05-2022 End: 04-19-2022 Influenza virus A and B RNA and SARS-CoV-2 (COVID-19) N gene panel - Respiratory specimen by BRYAN with probe detection [facility] Work Phone: Comment on above: Expected: 04/05/2022 , Expires: 04/19/2022 Start: 08-20-2021 ADVANCE DIRECTIVE DISCUSSION ADVANCE DIRECTIVE DISCUSSION [facility] Start: 08-20-2021 DEPRESSION ASSESSMENT DEPRESSION ASS ESSMENT [facility] Start: 05-04-2021 COVID-19 VACCINE (3 - Booster for Moderna series) COVID-19 VACCINE (3 - Booster for Moderna series) [facility] Start: 01-27-2021 COVID-19 VACCINE (3 - Booster for Moderna series) COVID-19 VACCINE (3 - Booster for Moderna series) [facility] Start: 01-15-2020 RSV Vaccine (1 - 1-d ose 75+ series) RSV Vaccine (1 - 1-dose 75+ series) [facility] Start: 12-01-2018 DIABETES SCREEN DIABETES SCREEN [facility] Start: 12-01-2018 Diabetes Screening Diabetes Screenin g [facility] Start: 2010 Pneumococcal Vaccine : 65+ (1 of 1 - PCV) Pneumococcal Vaccine: 65+ (1 of 1 - PCV) [facility] Start: 2010 PNEUMOCOCCAL: 65+ (1 - PCV) PNEUMOCOCCAL: 65+ (1 - PCV) [facility] Start: 1995 SHINGRIX VACCINE (1 of 2) HEIN GRIX VACCINE (1 of 2) [facility] Start: 01-15-1964 Urine microalbumin profile [facility] Start: 1963 Anxiety Screening Anxiety Screening [facility] Start: 1963 Depression Screening Depression Scre ening [facility] Start: 1963 HEPATITIS C SCREENING HEPATITIS C SC DARCY [facility] Start: 1957 Adult depression scr eening assessment [facility] 24 Hour ECG [facility] Alanine aminotransfe rase [Enzymatic activity/volume] in Serum or Plasma [facility] Albumin [Mass/volume ] in Serum or Plasma [facility] Alkaline phosphatase [Enzymatic activity/volume] in Serum or Plasma [facility] Anaerobic Culture Anaerobic Culture [facility] Work Phone: Anion gap measurement [facility] Aspartate aminotrans ferase [Enzymatic activity/volume] in Serum or Plasma [facility] Bacteria identified in Blood by Culture Blood Culture [facility] Bacteria identified in Body fluid by Culture [facility] Bacteria identified in Unspecified specimen by Anaerobe culture [facility] Work Phone: Bacteria identified in Unspecified specimen by Anaerobe culture [facility] Bacteria identified in Urine by Culture URINE CULTURE Microbiology Routine Burning with urination 04/05/2022 1:58 PM EDT [facility] Work Phone: Bacteria identified in Urine by Culture Urine Culture [facility] Bilirubin, total measurement [facility] BUN/Creatinine ratio [facility] Calcium [Mass/volume ] in Serum or Plasma [facility] Carbon dioxide, tota l [Moles/volume] in Serum or Plasma [facility] CBC W Auto Different ial panel - Blood [facility] Work Phone: CBC W Auto Different ial panel - Blood [facility] CBC W Auto Different ial panel - Blood [facility] Chloride [Moles/volu me] in Serum or Plasma [facility] Creatinine [Moles/vo lume] in Serum or Plasma [facility] CT Chest and Abdomen W contrast IV [facility] CT Chest W contrast IV [facility] Work Phone: CT Chest W contrast IV [facility] [facility] Cytology report of B horace fluid Cyto stain [facility] Glucose [Mass/volume ] in Serum or Plasma [facility] Hematocrit [Volume Fraction] of Blood [facility] Hemoglobin [Mass/vol ume] in Blood [facility] Hemoglobin A1c/Hemoglobin.total in Blood [facility] Lactate dehydrogenas e measurement [facility] Lactate dehydrogenas e measurement [facility] LDH [facility] Work Phone: Leukocytes [#/volume ] in Blood [facility] Magnesium measurement [facility] Magnesium measurement [facility] Mean corpuscular hemoglobin concentration determination [facility] Mean corpuscular hemoglobin determination [facility] Measurement of renal function [facility] Microbial culture, routine Wound Culture [facility] Work Phone: Microscopic observat ion [Identifier] in Unspecified specimen by Gram stain [facility] MR Brain WO and W co ntrast IV [facility] Work Phone: Natriuretic peptide. B prohormone N-Terminal [Mass/volume] in Serum or Plasma [facility] Natriuretic peptide. B prohormone N-Terminal [Mass/volume] in Serum or Plasma [facility] Natriuretic peptide. B prohormone N-Terminal [Mass/volume] in Serum or Plasma [facility] Neutrophil count [facility] Neutrophil percent differential count [facility] Patient Education [facility] Work Phone: Patient referral [facility] Work Phone: Platelets [#/volume] in Blood [facility] Positron emission tomography with computed tomography [facility] Work Phone: Potassium [Moles/vol ume] in Serum or Plasma [facility] Procedure [facility] PT Unspecified body region W [facility] Radiation oncology A ND/OR radiotherapy [facility] Work Phone: Radiation oncology A ND/OR radiotherapy [facility] Red blood cell count [facility] Red cell distributio n width determination [facility] Sodium [Moles/volume ] in Serum or Plasma [facility] Total protein measurement [facility] Troponin T.cardiac [Mass/volume] in Serum or Plasma by High sensitivity method [facility] Troponin T.cardiac [Mass/volume] in Serum or Plasma by High sensitivity method [facility] Troponin T.cardiac [Mass/volume] in Serum or Plasma by High sensitivity method [facility] Troponin T.cardiac [Mass/volume] in Serum or Plasma by High sensitivity method [facility] Urea nitrogen [Mass/volume] in Serum or Plasma [facility] Immunizations Immunization Date Immunization Notes Care Provider Fa cility 06-23-2024 influenza virus vaccine, unspecified formulation DR DAVID STERLING MD [facility] 02-26-2024 pneumococcal 20-shannon nt conjugate vaccine DR DAVID STERLING MD [facility] 06-01-2023 influenza virus vaccine, unspecified formulation DR DAVID STERLING MD [facility] 04-27-2022 influenza virus vaccine, unspecified formulation DR DAVID STERLING MD [facility] 12-02-2020 SARS-CoV-2 (COVID-19 ) mRNA-[address] DAVID STERLING MD [facility] Comment on above: Result Comment: 2024: [id number] 11-04-2020 SARS-CoV-2 (COVID-19 ) mRNA-[address] DAVID STERLING MD [facility] Comment on above: Result Comment: 2024: [id number] 08-03-2014 influenza virus vaccine, unspecified formulation Xr [place] Work Phone: [facility] 06-20-2013 Influenza virus vaccine W [facility] 06-20-2013 Pneumococcal Vaccine [facility] Work Phone: 06-20-2013 pneumococcal vaccine , unspecified formulation Dr. Tonio Fajardo Work Phone: [facility] Payers Date Payer Category Payer Unknown [id number] 2025 Private Health Insurance [id number] 2022 Self-pay [id number] 2016 Self-pay [id number] 2009 Medicare [id number] 2009 Medicare [id number] 2009 [facility] ( and others) [id number] 2009 Unknown FOR LIFE [id number] 2009-Present [phone] [address] [place] [address] Indemnity [id number] .[id number] 1945 Unknown [id number] 2.16.840.1.004397.3.579.2 .627 Unknown [id number] 2.16.840.1.923346.3.579.2 .462 Unknown [id number] 2.16.840.1.489404.3.579.2 .462 Unknown [id number] 2.16.840.1.954223.3.579.2 .462 Unknown [id number] 2.16.840.1.227811.3.579.2 .462 Unknown [id number] 2.16.840.1.252912.3.579.2 .462 Unknown [id number] 2.16.840.1.836391.3.579.2 .462 Unknown [id number] 2.16.840.1.394580.3.579.2 .462 Unknown [id number] 2.16.840.1.750448.3.579.2 .462 Unknown [id number] 2.16.840.1.537662.3.579.2 .462 Unknown [id number] 2.16.840.1.867618.3.579.2 .462 Unknown [id number] 2.16.840.1.765791.3.579.2 .462 Unknown [id number] 2.840.1.584087.3.579.2 .462 Unknown [id number] 2.16.840.1.335189.3.579.2 .462 Unknown [id number] 2.16.840.1.822813.3.579.2 .462 Unknown [id number] 2.840.1.739225.3.579.2 .462 Unknown [id number] 2.840.1.606617.3.579.2 .462 Unknown [id number] 2.840.1.199966.3.579.2 .462 Unknown [id number] 2.840.1.137580.3.579.2 .462 Unknown [id number] 2.840.1.729496.3.579.2 .462 Unknown [id number] 2.840.1.667831.3.579.2 .462 Unknown [id number] 2.840.1.684427.3.579.2 .462 Unknown [id number] 2.840.1.410797.3.579.2 .462 Unknown [id number] 2.840.1.303989.3.579.2 .462 Unknown [id number] 2.840.1.005603.3.579.2 .462 Unknown [id number] 2.840.1.170443.3.579.2 .462 Unknown [id number] 2.840.1.333506.3.579.2 .462 Unknown [id number] 2.840.1.600471.3.579.2 .462 Unknown [id number] 2.840.1.074118.3.579.2 .462 Unknown [id number] 2.840.1.251651.3.579.2 .462 Unknown [id number] 2.16.840.1.194454.3.579.2 .462 Unknown [id number] 2.16.840.1.649332.3.579.2 .462 Unknown [id number] 2.16.840.1.617545.3.579.2 .462 Unknown [id number] 2.16.840.1.484433.3.579.2 .462 Unknown [id number] 2.16.840.1.189713.3.579.2 .462 Unknown [id number] 2.16.840.1.326073.3.579.2 .462 Unknown [id number] 2.16.840.1.527329.3.579.2 .462 Unknown [id number] 2.840.1.869979.3.579.2 .462 Unknown [id number] 2.840.1.417749.3.579.2 .462 Unknown [id number] 2.840.1.354819.3.579.2 .462 Unknown [id number] 2.840.1.913657.3.579.2 .462 Unknown [id number] 2.840.1.419171.3.579.2 .462 Unknown [id number] 2.840.1.005497.3.579.2 .462 Unknown [id number] 2.840.1.195529.3.579.2 .462 Unknown [id number] 2.16.840.1.304218.3.579.2 .462 Unknown [id number] 2.16.840.1.858374.3.579.2 .462 Unknown [id number] 2.16.840.1.319082.3.579.2 .462 Unknown [id number] 2.840.1.850270.3.579.2 .462 Unknown [id number] 2.16.840.1.788966.3.579.2 .462 Social History Date Type Detail Facility Start: 01-06-2021 End: 10-31-2023 Tobacco smoking status IDIS Unknown if ever smoked [facility] Start: 08-27-2013 None [facility] Start: 03-18-2014 Spouse/ Signif icant Other [facility] Start: 06-20-2014 Non-smoker [facility] Start: 1945 Sex Assigned At Male W [facility] Start: 04-05-2022 End: 04-19-2025 Tobacco smoking status NHIS Ex-smoker [facility] Work Phone: History of tobacco use Current smoker [facility] Work Phone: History of tobacco use Cigarette Smoker [facility] Work Phone: Start: 04-05-2022 Tobacco use and exposure Former smokeless tobacco user [facility] Work Phone: Start: 1945 Sex Assigned At Not on file [facility] Start: 03-26-2022 End: 04-05-2022 Exposure to SARS-CoV-2 (event) Not sure [facility] Work Phone: Start: 04-05-2022 History of Social function [facility] Start: 04-05-2022 Tobacco use panel [facility] Start: 10-30-2024 End: 04-13-2025 Sex Male (finding) [facility] Tobacco smoking status [facility] Medical Equipment Procedure Code Equipment Code [...] FDA Start: 06-08-2023 Bunionectomy FDA Start: 06-08-2023 ([id number]) [id number] [id number] 1)[id number] FDA Start: 04-09-2025 ([id number]) [id number] [id number] 1)[id number] FDA Start: 04-09-2025 ([id number]) [id number] [id number] 1)[id number] FDA Start: 04-09-2025 Goals Date Patient Goal Desired Activity /State Functional Status Date Assessment Result Facility 04-19-2025 Functional status Bedrest [facility] Work Phone: 04-12-2025 Functional status Chair [facility] Work Phone: 04-10-2025 Functional status Stand and pivot [facility] Work Phone: 03-09-2025 Functional status Chair [facility] Work Phone: Mental Status Date Assessment Result Facility 04-19-2025 Cognitive function Awake;Alert;A ppropriate;Follow s Commands [facility] Work Phone: 04-18-2025 Cognitive function Voice/Name [facility] Work Phone: 04-17-2025 Cognitive function Appropriate;Cooperativ e [facility] Work Phone: 04-12-2025 Cognitive function Voice/Name [facility] Work Phone: 04-10-2025 Cognitive function Voice/Name [facility] Work Phone: 04-05-2025 Cognitive function Awake;Alert;A ppropriate;Follow s Commands [facility] Work Phone: 03-09-2025 Cognitive function Voice/Name [facility] Work Phone: 06-08-2023 Cognitive function Voice/Name [facility] Work Phone: 12-30-2022 Cognitive function Level Of Cons ciousness Awake;Alert;Appropriate;Follow s Commands [facility] Work Phone: 04-28-2022 Cognitive function Voice/Name [facility] Work Phone: 04-14-2022 Cognitive function Level Of Cons ciousness Awake;Appropriate;Follows Commands;Drowsy [facility] Work Phone: Clinical Notes 04-05-2022 to 04-19-2025 Note Date & Type Note Facility 04-19-2025 Note [facility] 04-19-2025 Progress note Note Date/Time April 19, 2025 10:10am [facility] Medical Records Department [address] [place] [address] Progress Note - Pharmacy 04/19/25 0820 MR#: [id number] Acct: [id number] Name: PEDRO HILLMAN Rep #:[id number] : 1945 80 From: Mukul Barbosa PCP: Dr. Tonio Fajardo, DO Status:ADM IN Location: TCU [facility]22-1 Documented by User: Mukul Barbosa 04/19/25 08:39 [...] by Valdez Olivo MD> CC: ~ Signed [facility] Work Phone: 1(142) 601-633208-31-2025 Radiology Diagnostic study [facility]08-30-2025 Note. MICRO - Microbiology PROCEDURE: Blood Culture [...] Locations *1: This test was performed at: [facility], [address] [place] [address], [facility] , [facility]08-30-2025 Note. MICRO - Microbiology PROCEDURE: Blood Culture [...] Locations *1: This test was performed at: [facility], [address] [place] [address], [address]- , [facility] [id number] History and physical note Author Valdez Geovani [facility] Note Date/Time April 18, 2025 6: 56am [facility] Medical Records Department [address] [place] [address] History & Physical Exam 04/17/251940 MR#: [id number] Acct: [id number] Name: PEDRO HILLMAN Rep #:[id number] : 1945 80 From: Valdez Olivo MD PCP: Dr. Tonio Fajardo, DO Status:ADM IN Location: TCU TCU22-1 HPI - General General Date of Admission: 04/17/25 Date of Service: 04/18/25 Chief Complaint: Here for rehabilitation. HPI Narrative PEDRO HILLMAN, is a 80 Male who presents with followin04/12/2025 [facility] ED TCU resident shortness of breath, hypoxia, tachycardia. Diagnosed with pneumothorax, pneumonia, acute on chronic HFpEF, COPD exacerbation. Transfer to [facility] 2/2 complicated pneumothorax. 04/13/2025 Admit [facility]. Ceftriaxone, Azithromycin, blood cultures, urinary antigens for [...] rehabilitation, strengthening, prior to discharge home alone. [facility] Medical History (Updated 04/18/25 @ 00:01 by Background Daemon) Presence of cardiac pacemaker Peripheral arterial disease Other persistent atrial fibrillation New onset atrial flutter COVID Wears hearing aid in both ears Former smoker Coronary artery disease Peripheral vascular occlusive disease BPH (benign prostatic hyperplasia) Chronic kidney disease, stage 3 Atherosclerosis of coronary artery of [place] heart without angina pectoris Hyperlipidemia Lower extremity [...] hr (Mucinex) #20 tabs OXYGEN - Supplemental ([facility] 04/09/25 Unknown History INFORMATIONAL USE ONLY) [...] Fajardo, DO; Dr. Valdez Olivo MD~ Signed [facility] Work Phone: 1(629) 906-847908-29-2025 [facility]08-29-2025 Discharge summary Date of Service 04/17/2025 [...] presented as a transfer from [facility] for further evaluation of possible hydropneumothorax. Apparently, patient underwent pacemaker placement at [facility] last week , next day, patient was found to have pleural effusion and underwent thoracentesis and was admitted to rehab at [facility]. Patient found to have hypoxia and [...] with cardiothoracic surgery, he was transferred to [facility]. Patient admitted to hospital service, started [...] Result Date: April 15, 2025 Verified By: GIBOSN REINA MD CLINICAL STATEMENT: IMPRESSION: Successful ultrasound [...] tablet)500 Milligram by mouth every day. insulin xvicbjme26 unit(s) Subcutaneous daily at bedtime. metoprolol (metoprolol succinate 25 mg oral TABLET extended release)0.5 tab(s) by mouth two (2) times a day. Do not crush or chew (controlled release). multivitamin with minerals (Multi-Braden)1 tab by mouth every day. dexdxjepoht06 Milligram by mouth once a day. SITagliptin (Januvia 50 mg oral tablet)1 tab(s) by mouth once a day. tamsulosin (tamsulosin 0.4 mg oral capsule)1 cap by mouth once a day. umeclidinium-vilanterol (Anoro Ellipta 62.5 mcg-25 mcg/inh inhalation powder)1 puff(s) by inhalation once a day. Discontinued cefdinir (cefdinir 300 mg oral capsule)1 cap by mouth every 12 hours for 5 Days. ohnrmqCFGI23 Milligram by mouth two (2) times a day for 5 Days. Follow Up Follow Up with TONIO FAJARDO DO When:Within 1-2 days Where:[address] [place] [address]- Additional Information: Please call the office to [...] by JERO ROSARIO on 04/17/2025 01:18 PM [id number] Discharge instructions Patient Education 04/17/2025 13:56:28 [...] says it is okay. General instructions Take gbty-crf-fjyqxeg and prescription medicines only as told by [...] 08/06/2006 Document Revised: 07/19/2018 Document Reviewed: 07/15/2018 [employer] Patient Education 2020 [employer]. Follow Up Care 04/13/2025 00:27:18 With:Waqar [facility] - [phone] Address:Unknown When:1-2 days With:TONIO FAJARDO DO Address: [address] [place] [address]- When:1-2 days Comments:Please call the office to schedule a hospital follow up appointment. [facility] 08-29-2025 Note Discharge Instructions Thank you for allowing [facility] to assist you with your healthcare needs. The following is importantdischarge information regarding your hospital visit. Your Care Team TONIO FAJARDO DO Your Diagnosis Atrial fibrillation BPH (benign prostatic hyperplasia) CAD in [place] artery s/p CABG Cardiac pacemaker in situ Chronic anemia CKD (chronic kidney disease) COPD with hypoxia Diabetes Diastolic heart failure Elevated troponin HLD (hyperlipidemia) HTN (hypertension) PAD (peripheral artery disease) Peripheral neuropathy Pneumonia Right Hydropneumothorax What to do next Follow Up Appointments Follow Up with Waqar [facility] - [phone] When:Within 1-2 days Follow Up with TONIO FAJARDO DO When:Within 1-2 days Where:[address] [place] [address]- Additional Information: Please call the office to [...] says it is okay. General instructions Take yixp-mje-ghmwenh and prescription medicines only as told by [...] 08/06/2006 Document Revised: 07/19/2018 Document Reviewed: 07/15/2018 [employer] Patient Education 2020 [employer] Additional Information VACCINATE! IT SAVES LIVES! Members of the community who have not yet received the COVID-19 vaccine and would like to receive it can visit one of [facility] vaccine clinics. There are many vaccine clinic locations within the [facility]. For locations and available times, please visit https://gettheshot.coronavirus.[place].gov/. It is important to note that some COVID mobile vaccine clinics are held outdoors and may be canceled in rainy or stormy conditions. To learn more about pediatric vaccinations (ages 5-11), we invite you to visit the [facility] webpage. https://www.[facility].org/pages/1520-Vzqht-Qwmdbfosxfb-Umbtcxjhau-Mqxxx-Olj stions.htmlTo learn more about the COVID-19 vaccine, we invite you to visit the CDC website for a list of frequently asked questions.https://www.cdc.gov/coronavirus/2019-ncov/vaccines/faq.html [facility] Patient Portal Access Instructions: Stay connected with your healthcare team and access your personal medical information anytime with the [facility] Patient Portal. Please follow the directions below to create your [facility] account: 1.Access the email account you provided upon registration to the hospital/physician office.2.Look for an invitation email from [facility].3.Open the email and access the invitation link: AcceptInvitation to [facility].4.Fill in the required johnson to create your account. To access your account, visit [employer]OneChart. Click the blue button labeled Access Patient [...] who you will allowto register on the [facility] Patient Portal for access to your information. You can also access the [facility] Patient Portal on the [employer] Anywhere katia. Simply click on Patient Portal and then log into your account. If you would like to receive a full copy of your medical records, please contact the [facility] Medical Records Department by calling [phone], Sunday through Sunday between 8 a.m. and [...] Call your local pharmacy or go to http://AfterCollege.UCAN/6E0Ob1v to find one close to you.3.Make use of household items: Use cat litter or old coffee grounds to dispose medications if other options arenot available. Mix your drugs with these household products, seal them in an airtight container andthrow it into the garbage. Call [facility]: [phone] to be sure your drugs can be [...] aware that I should contact my doctor. Patient/Asset Liability Analyst Signature: Date/Time: Relationship to Patient: Witness Name/Signature: Date/Time: [id number] Note Discharge Instructions Thank you for allowing [facility] to assist you with your healthcare needs. The following is importantdischarge information regarding your hospital visit. Your Care Team TONIO FAJARDO DO Your Diagnosis Atrial fibrillation BPH (benign prostatic hyperplasia) CAD in [place] artery s/p CABG Cardiac pacemaker in situ Chronic anemia CKD (chronic kidney disease) COPD with hypoxia Diabetes Diastolic heart failure Elevated troponin HLD (hyperlipidemia) HTN (hypertension) PAD (peripheral artery disease) Peripheral neuropathy Pneumonia Right Hydropneumothorax What to do next Follow Up Appointments Follow Up with Waqar [facility] - [phone] When:Within 1-2 days Follow Up with TONIO FAJARDO DO When:Within 1-2 days Where:[address] [place] [address]- Additional Information: Please call the office to [...] to receive it can visit one of [facility] vaccine clinics. There are many vaccine clinic locations within the [facility]. For locations and available times, please visit https://gettheshot.coronavirus.[place].gov/. It is important to note that some COVID mobile vaccine clinics are held outdoors and may be canceled in rainy or stormy conditions. To learn more about pediatric vaccinations (ages 5-11), we invite you to visit the [facility] webpage. https://www.[facility].org/pages/0846-Ayajf-Hfktusprcch-Cqrclfkrou-Gbhqi-Wyv stions.htmlTo learn more about the COVID-19 vaccine, we invite you to visit the CDC website for a list of frequently asked questions.https://www.cdc.gov/coronavirus/2019-ncov/vaccines/faq.html [facility] Patient Portal Access Instructions: Stay connected with your healthcare team and access your personal medical information anytime with the [facility] [employer] [facility] Patient Portal. Please follow the directions below to create your [facility] [employer] [facility] account: 1.Access the email account you provided upon registration to the hospital/physician office.2.Look for an invitation email from [facility].3.Open the email and access the invitation link: AcceptInvitation to [facility].4.Fill in the required johnson to create your account. To access your account, visit [email or web address]. Click the blue button labeled Access Patient [...] who you will allowto register on the [facility] Patient Portal for access to your information. You can also access the [facility] [employer] Patient Portal on the [facility] Anywhere katia. Simply click on Patient Portal and then log into your account. If you would like to receive a full copy of your medical records, please contact the [facility] Medical Records Department by calling [phone], Sunday through Sunday between 8 a.m. and [...] Call your local pharmacy or go to http://bit.ly/0V6Va1i to find one close to you.3.Make use of household items: Use cat litter or old coffee grounds to dispose medications if other options arenot available. Mix your drugs with these household products, seal them in an airtight container andthrow it into the garbage. Call [facility]: [phone] to be sure your drugs can be [...] aware that I should contact my doctor. Patient/Asset Liability Analyst Signature: Date/Time: Relationship to Patient: Witness Name/Signature: Date/Time: [facility]Dcebzbhc99-08-6072 Discharge summary Date of Service 04/17/2025 Discharge [...] presented as a transfer from [facility] for further evaluation of possible hydropneumothorax. Apparently, patient underwent pacemaker placement at [facility] last week , next day, patient was found to have pleural effusion and underwent thoracentesis and was admitted to rehab at [facility]. Patient found to have hypoxia and [...] with cardiothoracic surgery, he was transferred to [facility]. Patient admitted to hospital service, started [...] tablet)500 Milligram by mouth every day. insulin qiugjggw88 unit(s) Subcutaneous daily at bedtime. metoprolol (metoprolol succinate 25 mg oral TABLET extended release)0.5 tab(s) by mouth two (2) times a day. Do not crush or chew (controlled release). multivitamin with minerals (Multi-Braden)1 tab by mouth every day. buhicvqsfnw62 Milligram by mouth once a day. SITagliptin (Januvia 50 mg oral tablet)1 tab(s) by mouth once a day. tamsulosin (tamsulosin 0.4 mg oral capsule)1 cap by mouth once a day. umeclidinium-vilanterol (Anoro Ellipta 62.5 mcg-25 mcg/inh inhalation powder)1 puff(s) by inhalation once a day. Discontinued cefdinir (cefdinir 300 mg oral capsule)1 cap by mouth every 12 hours for 5 Days. cefctfZFVW75 Milligram by mouth two (2) times a day for 5 Days. Follow Up Follow Up with SCOTTY, TONIO A DO When:Within 1-2 days Where:[address] [place] [address]- Additional Information: Please call the office to [...] by JERO ROSARIO on 04/17/2025 01:18 PM [id number] Note* Exam Date Time Procedure Performing Provider Status 04/17/25 7:03 AM XR Chest 1 View KRISTEN MAKI MD; Aut h (Verified) [id number] ORIGINAL EXAMINATION: ONE XRAY VIEW OF THE [...] Date: 04/17/2025 8:12:37 AM Ordering Provider: GLORIA [facility]08-28-2025 NoteORIGINAL PROCEDURE: ULTRASOUND GUIDED THORACENTESIS CLINICAL STATEMENT: [...] Sign Date: 04/16/2025 5:19:34 PM Ordering Provider: [facility] [id number] Note Date of Service 04/16/2025 Chief Complaint [...] presented as a transfer from [facility] for further evaluation of possible hydropneumothorax. Apparently, patient underwent pacemaker placement at [facility] last week , next day, patient was found to have pleural effusion and underwent thoracentesis and was admitted to rehab at [facility]. Patient found to have hypoxia and [...] with cardiothoracic surgery, he was transferred to [facility]. Patient admitted to hospital service, started [...] fibrillation BPH (benign prostatic hyperplasia) CAD in [place] artery s/p CABG Cardiac pacemaker in situ [...] by weight. Plan for discharge back to detention facility hopefully next 24-48 hours if he [...] GLORIA DAVIS MD on 04/16/2025 01:33 PM [facility]1745 Pulmonary Consult note Date of Service 04/16/2025 [...] The patient underwent a thoracentesis here at [facility] showing undetectable protein and a slightly [...] fibrillation BPH (benign prostatic hyperplasia) CAD in [place] artery s/p CABG Cardiac pacemaker in situ [...] fibrillation BPH (benign prostatic hyperplasia) CAD in [place] artery Cardiac pacemaker in situ Chronic anemia [...] ABBI CARMEN MD on 04/16/2025 01:14 PM [id number] Note. MICRO - Microbiology PROCEDURE: Acid Fast Bacilli Culture w Stain if Ind [*1] SOURCE: Thoracentesis Fluid BODY SITE: COLLECTED DATE/TIME: 04/15/2025 08:52 EDT RECEIVED DATE/TIME: 04/15/2025 14:18 EDT START DATE/TIME: 04/15/2025 14:18 EDT FREE TEXT SOURCE: STAINS AFS [] Verified Date/Time/Personnel: 04/16/2025 12:33 EDT Acid Fast Smear from Concentrated Specimen: Negative Performing Locations *1: This test was performed at: [facility], [address] [place] [address], [id number]- , [facility]08-28-2025 Note. MICRO - Microbiology PROCEDURE: Fungal Culture with Stain if Ind [*1] SOURCE: Thoracentesis Fluid BODY SITE: COLLECTED DATE/TIME: 04/15/2025 08:52 EDT RECEIVED DATE/TIME: 04/15/2025 14:18 EDT START DATE/TIME: 04/15/2025 14:18 EDT FREE TEXT SOURCE: STAINS FUNSM [] Verified Date/Time/Personnel: 04/16/2025 12:32 EDT No fungal elements observed by calcofluor white stain. Performing Locations *1: This test was performed at: [facility], [address] [place] [address], [id number]- , [facility]08-28-2025 Nurse Progress note I was ambulating the [...] the incident. Digitally Signed by [place] [facility] on 04/16/2025 10:23 AM [facility] HospitalKtboxidt47-71-8141 Note. MICRO - Microbiology PROCEDURE: Culture Body [...] Locations *1: This test was performed at: [facility], [address] [place] [address], [id number]- , [facility]08-27-2025 Note Date of Service 04/15/2025 Chief Complaint [...] presented as a transfer from [facility] for further evaluation of possible hydropneumothorax. Apparently, patient underwent pacemaker placement at [facility] last week , next day, patient was found to have pleural effusion and underwent thoracentesis and was admitted to rehab at [facility]. Patient found to have hypoxia and [...] with cardiothoracic surgery, he was transferred to [facility]. Patient admitted to hospital service, started [...] fibrillation BPH (benign prostatic hyperplasia) CAD in [place] artery s/p CABG Cardiac pacemaker in situ [...] by weight. Plan for discharge back to detention facility once medically stable. No family at [...] GLORIA DAVIS MD on 04/15/2025 04:24 PM [id number] Note* Exam Date Time Procedure Performing Provider Status 04/15/25 11:36 AM XR Chest 1 View SHAHBAZ FOLEY MD; Aut h (Verified) [id number] ORIGINAL EXAMINATION: ONE XRAY VIEW OF THE [...] Date: 04/15/2025 11:43:46 AM Ordering Provider: [id number] Note* Exam Date Time Procedure Performing Provider Status 04/15/25 11:35 AM US Thoracentesis Right GIBSON REINA; Mahesh (Verified) [id number] ORIGINAL PROCEDURE: ULTRASOUND GUIDED THORACENTESIS CLINICAL STATEMENT: [...] Sign Date: 04/16/2025 5:19:34 PM Ordering Provider: [facility]08-27-2025 Note US Procedure Record Summary Primary Physician: OLAMIDE GONZALEZ PA-C Finalized Date/Time: 04/15/25 11:32:18 Pt. Name: PEDRO HILLMAN /Sex: 1945 Male Med Rec #: [id number] Physician: DAVID STERLING MD Financial #: [id number] Pt. Type: I Room/Bed: [facility]/A Admit/Disch: 04/13/25 05:27:00 - Institution: Allergies identified in patient's electronic medical record at time of printing on 04/15/25 Entry 1 Substance ibuprofen Reaction Type Allergy Last Modified By: KHURRAM Merchant 04/13/25 06:04:52 Case Attendance- US Entry 1 Entry 2 Case Attendee OLAMIDE GONZALEZ Lauren M PA-C Role Performed Primary Surgeon Hoop Coiling Machine Operator Details Time In 04/15/25 11:08:00 04/15/25 11:08:00 [...] instrumentation, sponges, or sharps). Outcomes Met? Yes Manganese Breaker OLAMIDE GONZALEZ Completing ROGER Procedure Plan Last Modified By: Michaela Barnard 04/15/25 11:16:00 Radiology Lines and Procedures- US Entry 1 Radiology Sedation Case Times Sedation Total Time 0 Radiology - Fluid/Drainage Fluid Amount mL: 1000 ml Fluid Description sheldon RAD - US Erwin, Guidewires, Cath.... Catheters OneStep Catheter 5 Fr [...] Signatures Signed By: Michaela Barnard 04/15/25 11:32 [facility] [id number] NoteBody Fluid Path ReviewNegative for malignant cells. [...] This is a split/shared visit with Dr. Waogner. Is an 80-year-old male with past medical [...] pacemaker on , 04/09/2025 at [facility]. The following day, he had a chest x-ray completed revealing a right pleural effusion and underwent a thoracentesis(amount of volume removed unknown). He was discharged to [facility] rehab facility same day. While at rehab facility, he was noted to be hypoxic and tachycardic and a chest x-ray was completed showing aright pneumothorax. He was taken to [facility] emergency room where he was further evaluated [...] on 100% nonrebreather mask, and transferred to [facility] for further evaluation. Cardiothoracic surgery has been [...] of the chest completed at [facility] on 04/12/2025 showing right loculated hydropneumothorax [...] of the chest completed at [facility] on 04/12/2025 showed apical and some [...] anemia 13. HTN (hypertension) 14. 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 Diastolic heart failure 16. COPD with hypoxia 48 minutes of independent KATIA time spent obtaining past medical history from EMR, conducting [facility] to request CT of the chest imaging, completing tedq-pq-[id number] visit with patient at bedside, obtaining physical exam, and dictating details of today's consultation. Problem List/Past Medical History Ongoing Atrial fibrillation BPH (benign prostatic hyperplasia) CAD in [place] artery Cardiac pacemaker in situ Chronic anemia [...] by COLLEEN DOE on 04/13/2025 03:08 PM [facility] [id number] Note* Exam Date Time Procedure Performing Provider Status 04/15/25 6:48 AM XR Chest 1 View LEVI MARCIAL MD; Auth (Verified) [id number] ORIGINAL EXAMINATION: ONE XRAY VIEW OF THE [...] 04/15/2025 7:22:03 AM Ordering Provider: GLORIA DAVIS [id number] Note* Exam Date Time Procedure Performing Provider Status 04/14/25 9:03 PM Electrocardiogram - EKG - CV JOSE GUADALUPEP BRAYAN JARAMILLO MD; Auth (Verified) ECG Final Report SINUS TACHYCARDIA VENTRICULAR PREMATURE COMPLEX RIGHT BUNDLE BRANCH BLOCK Electronic Signature: BRAYAN FRANCO MD 04/15/2025 22:51:41 [facility] [id number] Note Date of Service 04/14/2025 Chief Complaint [...] fibrillation BPH (benign prostatic hyperplasia) CAD in [place] artery s/p CABG Cardiac pacemaker in situ [...] as of now. Discussed with cardiothoracic surgery DECK SUPERVISOR. Will give one-time dose of IV Lasix [...] for now. Plan for discharge back to detention facility once medically stable. Note was dictated [...] GLORIA DAVIS MD on 04/14/2025 04:44 PM [facility] [id number] Note. MICRO - Microbiology PROCEDURE: Legionella Urine [...] Locations *1: This test was performed at: [address], [facility] , [facility]08-26-2025 Note. MICRO - Microbiology PROCEDURE: Streptococcus Pneumoniae [...] Locations *1: This test was performed at: [facility], [address] [place] [address], [id number]- , [facility]08-26-2025 Note* Exam Date Time Procedure Performing Provider Status 04/14/25 6:55 AM XR Chest 1 View LEVI MARCIAL MD; Auth (Verified) [id number] ORIGINAL EXAMINATION: ONE XRAY VIEW OF THE [...] 04/14/2025 7:00:29 AM Ordering Provider: COLLEEN DOE [id number] History and physical note [facility] Hospitalist History and Physical Date of Admission: patient is being admitted on April 13, 2025 Chief complaint: pneumothorax History of present illness: History was taken from talking with the emergency room physician at [facility] as well as talking with the [...] the patient had a pacemaker placed at [facility]. On Sunday of this past week the patient was found to have pleural effusion and had a thoracentesis. The patient was admitted to rehab at [facility]. Yesterday the patient had episodes of [...] CT chest without contrast showed right loculated [place] pneumothorax of estimated 15% of the right thoracic volume occupied by air. Patches of dense consolidating right pneumonia. Sizable peripheral blebs and honeycombing in the left mid and base. Prior to transfer they did discuss the case with cardiothoracic surgery investor relations specialist and the patient wasgiven vancomycin and Zosyn. [...] Vitals Signs(Last 24 hrs)__Last Charted Minimum Maximum [id number](APR 13 05:28)135(APR 13:28)135(APR 13:) DBP78(APR 13:28)78(APR 13:28)78(APR 13:28) Physical examination: HEENT: No Pallor, No Icterus Cardiac: tachycardia, No murmur Lungs: diffuse crackles in respiratory stress Abdomen: Soft Non tender Musculoskeletal: No joint pains or swelling Extremities: No edema, good pulses Neurological: Alert, no deficits Skin: No rash, no nodules Labs: as mentioned in the HPI. Assessment and plan: Patient presents from [facility] on April 13, 2025 due to [...] DAVID STERLING MD on 04/13/2025 05:49 AM [facility] HospitalXnyzgokw52-06-0580 Respiratory therapy Hospital Progress note Respiratory Therapy [...] Summer Hankins Student on 04/13/2025 04:09 PM [facility] [id number] Cardiothoracic surgery Consult note Date of Service [...] pacemaker on , 04/09/2025 at [facility]. The following day, he had a chest x-ray completed revealing a right pleural effusion and underwent a thoracentesis(amount of volume removed unknown). He was discharged to [facility] facility same day. While at rehab facility, he was noted to be hypoxic and tachycardic and a chest x-ray was completed showing aright pneumothorax. He was taken to [facility] emergency room where he was further evaluated [...] on 100% nonrebreather mask, and transferred to [facility] for further evaluation. Cardiothoracic surgery has been [...] of the chest completed at [facility] on 04/12/2025 showing right loculated hydropneumothorax [...] of the chest completed at [facility] on 04/12/2025 showed apical and some [...] anemia 13. HTN (hypertension) 14. 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 Diastolic heart failure 16. COPD with hypoxia 48 minutes of independent KATIA time spent obtaining past medical history from EMR, conducting [facility] to request CT of the chest imaging, completing fbof-ee-[id number] visit with patient at bedside, obtaining physical exam, and dictating details of today's consultation. Problem List/Past Medical History Ongoing Atrial fibrillation BPH (benign prostatic hyperplasia) CAD in [place] artery Cardiac pacemaker in situ Chronic anemia [...] by COLLEEN DOE on 04/13/2025 03:08 PM [facility] HospitalJkelndmo05-10-7771 Note* Exam Date Time Procedure Performing Provider Status 04/13/25 2:42 PM XR Chest 1 View MÓNICA ZALDIVAR DO; [facility] (Verified) [id number] ORIGINAL EXAMINATION: ONE XRAY VIEW OF THE [...] 04/13/2025 2:58:50 PM Ordering Provider: COLLEEN Revelesltman [id number] Evaluation + Plan noteExtracted from: Title:Clinical Document Author:DAVID STERLING MD Date:04/13/25 [facility] History and Physical Date of Admission: patient is being admitted on April 13, 2025 Chief complaint: pneumothorax History of present illness: History was taken from talking with the emergency room physician at [facility] as well as talking with the [...] the patient had a pacemaker placed at [facility]. On Sunday of this past week the patient was found to have pleural effusion and had a thoracentesis. The patient was admitted to rehab at [facility]. Yesterday the patient had episodes of [...] CT chest without contrast showed right loculated [place] pneumothorax of estimated 15% of the right thoracic volume occupied by air. Patches of dense consolidating right pneumonia. Sizable peripheral blebs and honeycombing in the left mid and base. Prior to transfer they did discuss the case with cardiothoracic surgery investor relations specialist and the patient was given vancomycin and [...] Vitals Signs(Last 24 hrs)__Last Charted Minimum Maximum OWU662(APR 13 05:28)135(APR 13 05:28)135(APR 13 05:28) DBP78(APR [...] and plan: Patient presents from [facility] on April 13, 2025 due to [...] care with patient and family at bedside. [facility] 08-25-2025 Note Reason for Consultation Admission [...] Other: Medihoney/adaptic/foam to right knee. Betadine to xbyqx1uz, and 4th toes. Eucerin cream to BLE. Education Individuals Taught: Patient Learning Readiness: Willing to learn Barriers to Learning: Acuity of illness Teaching Method: Explanation Digitally Signed by Carol Galvin RN on 04/13/2025 01:26 PM [facility] HospitalJormmoje95-15-3656 [facility]08-25-2025 History and physical note [facility] History and Physical Date of Admission: patient is being admitted on April 13, 2025 Chief complaint: pneumothorax History of present illness: History was taken from talking with the emergency room physician at [facility] as well as talking with the [...] the patient had a pacemaker placed at [facility]. On Sunday of this past week the patient was found to have pleural effusion and had a thoracentesis. The patient was admitted to rehab at [facility]. Yesterday the patient had episodes of [...] CT chest without contrast showed right loculated [place] pneumothorax of estimated 15% of the right thoracic volume occupied by air. Patches of dense consolidating right pneumonia. Sizable peripheral blebs and honeycombing in the left mid and base. Prior to transfer they did discuss the case with cardiothoracic surgery investor relations specialist and the patient wasgiven vancomycin and Zosyn. [...] Vitals Signs(Last 24 hrs)__Last Charted Minimum Maximum [id number](APR 13 05:28)135(APR 13 05:28)135(APR 13:28) DBP78(APR 13:28)78(APR [...] and plan: Patient presents from [facility] on April 13, 2025 due to [...] DAVID STERLING MD on 04/13/2025 05:49 AM [facility] HospitalSxryomqp87-22-9039 History and physical note [facility] History and Physical Date of Admission: patient is being admitted on April 13, 2025 Chief complaint: pneumothorax History of present illness: History was taken from talking with the emergency room physician at [facility] as well as talking with the [...] the patient had a pacemaker placed at [facility]. On Sunday of this past week the patient was found to have pleural effusion and had a thoracentesis. The patient was admitted to rehab at [facility]. Yesterday the patient had episodes of [...] CT chest without contrast showed right loculated [place] pneumothorax of estimated 15% of the right thoracic volume occupied by air. Patches of dense consolidating right pneumonia. Sizable peripheral blebs and honeycombing in the left mid and base. Prior to transfer they did discuss the case with cardiothoracic surgery investor relations specialist and the patient wasgiven vancomycin and Zosyn. [...] Vitals Signs(Last 24 hrs)__Last Charted Minimum Maximum PRX162(APR 13 05:28)135(APR 13:28)135(APR 13:28) DBP78(APR 13:28)78(APR 13:28)78(APR 13:28) Physical examination: HEENT: No Pallor, No Icterus Cardiac: tachycardia, No murmur Lungs: diffuse crackles in respiratory stress Abdomen: Soft Non tender Musculoskeletal: No joint pains or swelling Extremities: No edema, good pulses Neurological: Alert, no deficits Skin: No rash, no nodules Labs: as mentioned in the HPI. Assessment and plan: Patient presents from [facility] on April 13, 2025 due to [...] DAVID STERLING MD on 04/13/2025 05:49 AM [facility] HospitalVdbzdbug59-73-4111 Discharge summary Author Daniel Brownlee [facility] Note Date/Time April 13, 2025 12 :09am [facility] Medical Records Department [address] [place] [address] Emergency Department Summary 04/12/25 MR#: [id number] Acct: [id number] Name: PEDRO HILLMAN Rep #:[id number] : 1945 80 From: Daniel Brownlee DO [...] complaints himself at this point in time. [facility] Medical History Presence of cardiac pacemaker Peripheral arterial disease Other persistent atrial fibrillation New onset atrial flutter COVID Wears hearing aid in both ears Former smoker Coronary artery disease Peripheral vascular occlusive disease BPH (benign prostatic hyperplasia) Chronic kidney disease, stage 3 Atherosclerosis of coronary artery of [place] heart without angina pectoris Hyperlipidemia Lower extremity [...] s 04/08/25 Unknown Rx OXYGEN - Supplemental ([facility] 04/09/25 Unknown History INFORMATIONAL USE ONLY) [...] knew that he was at [facility] the year is 2024 Skin: Warm, [...] with a rate of 111 bpm with [place] interval of 86. Patient's proBNP elevated 7022. [...] transfer giventhe complex pneumothorax. Discussed case with [facility] physician Dr. Sterling who accept patient [...] 92.5 H Lymph % (Auto) 2.5 L [place] % (Auto) 4.2 Eos % (Auto) 0.0 [...] left mid zone and base. Reading [facility] Discharge Plan Triage Chief Complaint: Shortness of [...] Qty: 60 0RF (DME) OXYGEN - Supplemental ([facility] INFORMATIONAL USE ONLY) Gas See Rx Instructions .ROUTE Patient Comments: 2 lpm at rest, 3 lpm on exertion, 2 lpm at HS DME company: [employer] CM Rx Instructions: As directed metoprolol succinate 25 mg tablet extended release 24 hr 12.5 mg PO BID Qty: 90 3RF Primary Care Provider: Tonio Fajardo Referrals: Tonio Fajardo DO [Primary Care Provider] - Print Language: East Timorese Disposition Disposition: DC/Tx to Another Type of HCF What to do if you have Problems For any increased pain, shortness of breath, bleeding, nausea or vomiting, chestpain, or any unexpected problems, contact your Primary Care Provider. Call [facility] ([phone]) or report to the closest Emergency Room. Call 911 if necessary. 04/13/258 <Electronically signed by Daniel Brownlee DO> Cosigner Signature (if applicable): CC: Dr. Tonio Fajardo DO ~ Signed [facility] Work Phone: 1(352) 116-154808-24-2025 Radiology Diagnostic study [address]24-2025 Radiology Diagnostic study [facility]08-22-2025 History and physical note Author Valdez Olivo [facility] Note Date/Time April 10, 2025 8: 47pm [facility] Medical Records Department [address] [place] [address] History & Physical Exam 04/10/252025 MR#: [id number] Acct: [id number] Name: PEDRO HILLMAN Rep #:[id number] : 1945 80 From: Valdez Olivo MD PCP: Dr. Tonio Fajardo, DO Status:ADM IN Location: [facility] TCU02-1 HPI - General General Date of Admission: 04/10/25 Date of Service: 04/10/25 Chief Complaint: Here for rehabilitation. HPI Narrative PEDRO HILLMAN, is a 80 Male who presents with followin04/05/2025 [facility] ED Hypotension. Worsening productive cough, copd, [...] given. Insulin/glucose for hyperkalemia 5.8. 04/05/2025 Admit [facility]. Lasix 40mg iv bid, Magnesium, albumin [...] rehabilitation, strengthening, prior to discharge home alone. [facility] Medical History (Updated 04/10/25 @ 20:[address] Valedz Olivo MD) Presence of cardiac pacemaker Peripheral arterial disease Other persistent atrial fibrillation New onset atrial flutter COVID Wears hearing aid in both ears Former smoker Coronary artery disease Peripheral vascular occlusive disease BPH (benign prostatic hyperplasia) Chronic kidney disease, stage 3 Atherosclerosis of coronary artery of [place] heart without angina pectoris Hyperlipidemia Lower extremity [...] s 04/08/25 Unknown Rx OXYGEN - Supplemental ([facility] 04/09/25 Unknown History INFORMATIONAL USE ONLY) [...] Fajardo DO; Dr. Valdez Olivo MD~ Signed [facility] Work Phone: 1(122) 384-913108-22-2025 [facility]08-22-2025 Discharge summary Author Nicola Roman [facility] Note Date/Time April 10, 2025 4: 10pm [facility] Medical Records Department [address] [place] [address] Transfer to [facility] MR#: [id number] Acct: [id number] Name: KADY,PEDRO Nora Rep #:[id number] : 1945 80 From: Nicola Roman MD [...] treated with radiation therapy currently followed by [facility] oncology and will start 8. Chronic [...] 2RF No Action (DME) OXYGEN - Supplemental ([facility] INFORMATIONAL USE ONLY) Gas See Rx [...] Fajardo DO; Dr. Deric Lantigua MD ~ [facility] Work Phone: 1(815) 481-268908-22-2025 Discharge summary Author Nicola Roman [facility] Note Date/Time April 10, 2025 4: 23pm [facility] Medical Records Department [address] [place] [address] Discharge Summary 04/10/25 1610 MR#: [id number] Acct: [id number] Name: PEDRO HILLMAN Rep #:[id number] : 1945 80 From: Nicola Roman MD PCP: Dr. Tonio Fajardo DO Status:ADM IN Location: [place] [address] Providers Date of Admission: 04/05/25 Date of Discharge: 04/10/25 Primary Care Physician: Dr. Tonio Fajardo DO Consultations 04/05/25 20:36 Consult: Nephrology Routine Consulting Provider: Davon Saravia Reason for Consult: CKD; stage IV with Hyperkalemia and AE CHF. EMERGENT Consult: No MD Notified: Yes Date Notified: 04/06/25 Time Notified: 06:58 Method of Notification: Answering Service 04/06/25 07:14 Consult: Onc/Wound/night guard Routine Comment: Reason for Consult:: burn R [...] treated with radiation therapy currently followed by [facility] oncology and will start 8. Chronic [...] BID #10 tabs 04/08/25 OXYGEN - Supplemental ([facility] INFORMATIONAL USE ONLY) 04/09/25 Physical Exam [...] (Auto) 91.6 H, Lymph % (Auto) 1.9L, [place] % (Auto) 5.5, Eos % (Auto) 0.0, [...] consistent with CHF. Reading Location: [facility] Chest CT 04/10/25 07:49 IMPRESSION: Coronary artery calcification (CAC) is is present Moderate right pleural effusion with compressive atelectasis in the right lower lobe as well as airspace disease in the right upper lobe with volume loss. Small left pleural effusion with left basilar atelectasis. Findings suggestive of CHF. Reading Location: [id number] Thoracentesis Ultrasound 04/10/25 09:12 IMPRESSION: Successful diagnostic and therapeutic ultrasound-guided right thoracentesis. Laboratory results pending. Reading Location: [place] [address] D/C Instructions Call your doctor if you [...] 2RF No Action (DME) OXYGEN - Supplemental ([facility] INFORMATIONAL USE ONLY) Gas See Rx Instructions .ROUTE Patient Comments: 2 lpm at rest, 3 lpm on exertion, 2 lpm at HS DME company: [employer] [facility] Rx Instructions: As directed Referrals / Follow Up: Carol Sousa [Registered Nurse] - 04/21/25 10:00 am ( FOLLOW UP PACER AND WOUNDCHECK ) Tonio Fajardo DO [Primary Care Provider] - Within 1 Week Disposition Disposition (needs filled in before D/C Order can be placed): Home, Self Care Charges/Coding Visit Charges Inpatient E&M: 92469 Disch Hosp >30min 04/10/25 1623 <Electronically signed by Nicola Roman MD> Cosigner Signature (if applicable): CC: Dr. Nicola Roman MD; Dr. Tonio Fajardo DO~ Signed [facility] Work Phone: 1(194) 659-735608-22-2025 [facility]08-22-2025 Radiology [id number] Hospital Discharge instructionsAdditional Instructions Date of Discharge: 04/10/25[facility] Work Phone: 1(536) 178-818808-22-2025 Progress note Author Nicola Roman [facility] Note Date/Time April 10, 2025 9: 18am [facility] Medical Records Department [address] [place] [address] Progress Note - Hospitalist 04/10/25 0750 MR#: [id number] Acct: [id number] Name: PEDRO HILLMAN Rep #:[id number] : 1945 80 From: Nicola Roman MD PCP: Dr. Tonio Fajardo, DO Status:ADM IN Location: [place] [address] 1 Reason for Visit Chief Complaint: SOB, [...] (Auto) 91.6 H, Lymph % (Auto) 1.9L, [place] % (Auto) 5.5, Eos % (Auto) 0.0, [...] consistent with CHF. Reading Location: [facility] Physical Exam Narrative S GENERAL: dyspneic [...] treated with radiation therapy currently followed by [facility] and will start 8. Chronic persistent A-fib [...] 52 Minutes Charges/Coding Visit Charges Inpatient E&M: 46715 Subs Hosp L3 04/10/25 0918 <Electronically signed by Nicola Roman MD> Cosigner Signature (if applicable): CC: ~ Signed [facility] Work Phone: 1(286) 923-227808-22-2025 Radiology Diagnostic study [facility]08-21-2025 Radiology Diagnostic study [facility]08-21-2025 Procedure [facility]08-21-2025 Progress note Author Nicola Roman [facility] Note Date/Time April 09, 2025 11 :31am [facility] Medical Records Department [address] [place] [address] Progress Note - Hospitalist 04/09/251124 MR#: [id number] Acct: [id number] Name: PEDRO HILLMAN Rep #:[id number] : 1945 80 From: Nicola Roman MD PCP: Dr. Tonio Fajardo, DO Status:ADM IN Location: [place] [id number]- Reason for Visit Chief Complaint: SOB, Cough [...] (Auto) 91.8 H, Lymph % (Auto) 2.8L, [place] % (Auto) 4.7, Eos % (Auto) 0.0, [...] treated with radiation therapy currently followed by [facility] oncology and will start 8. Chronic [...] 50 Minutes Charges/Coding Visit Charges Inpatient E&M: 70824 Subs Hosp 04/09/25 1131 <Electronically signed by Nicola Roman MD> Cosigner Signature (if applicable): CC: ~ Signed [facility] Work Phone: 1(295) 667-453908-20-2025 Consult note Author Issa Looney [facility] Note Date/Time April 08, 2025 7: 12pm [facility] Medical Records Department [address] [place] [address] Consultation - Cardiology 04/08/25 1906 MR#: [id number] Acct: [id number] Name: PEDRO HILLMAN Rep #:[id number] : 1945 80 From: Issa Looney MD PCP: Dr. Tonio Fajardo, DO Status:ADM IN Location: [place] [address] Assessment & Plan Assessment/Plan (1) Chronic atrial [...] disease: QUALIFIERS: Coronary Disease-Associated Artery/Lesion type: nativeartery Yuhaaviatam vs. transplanted heart: [place] heart Associated angina: without angina Qualified Code(s): I25.10 - Atherosclerotic heart disease of [place] coronary artery without angina pectoris PLAN: He [...] stage 3 Atherosclerosis of coronary artery of [place] heart without angina pectoris Hyperlipidemia Lower extremity [...] (Auto) 91.4 H, Lymph % (Auto) 3.5L, [place] % (Auto) 4.5, Eos % (Auto) 0.0, [...] 91.4 H, Lymph % (Auto) 3.5 L, [place] % (Auto) 4.5, Eos % (Auto) 0.0, [...] applicable): CC: Dr. Tonio Fajardo, DO~ Signed [facility] Work Phone: 1(431) 186-355608-20-2025 Consult note Author Renae Sarabia [facility] Note Date/Time April 08, 2025 6: 51pm [facility] Medical Records Department [address] [place] [address] Consultation - Nephrology 04/06/25 1153 MR#: [id number] Acct: [id number] Name: PEDRO HILLMAN Rep #:[id number] : 1945 80 From: Renae ZHONG PCP: Dr. Tonio Fajardo, DO Status:ADM IN Location: [place] [id number]- 1 Assessment & Plan Assessment/Plan (1) DARIUSZ [...] kidney from prior ATN after CABG [place] March2013 (patient required hemodialysis for short period [...] He he was last seen in our [place] office in April 2021. CKD is secondary to diabetic nephropathy and residual damage of kidney from prior ATN after CABG at [place] March 2013 (patient required hemodialysis for short [...] stage 3 Atherosclerosis of coronary artery of [place] heart without angina pectoris Hyperlipidemia Lower extremity [...] (Auto) 79.7 H, Lymph % (Auto) 7.3L, [place] % (Auto) 10.7 H, Eos % (Auto) [...] Clarity Clear, Urine pH 5.0, Ur Specific [place] 1.015, Urine Protein 100 H, Urine Glucose [...] (Auto) 81.9 H, Lymph % (Auto) 6.4L, [place] % (Auto) 10.1 H, Eos % (Auto) [...] process cannot be reliably excluded. Reading Location: [facility] Chest X-Ray 04/06/25 04:13 IMPRESSION: Unchanged bilateral pleural effusions. Unchanged passive atelectatic airspace disease of the lower lobes. Unremarkable median sternotomy wires. Minimal decrease in pulmonary congestion/infiltrates. Enlarged cardiac silhouette. Reading Location: [place] [address] 04/06/25 1226 <Electronically signed by Renae ZHONG> Cosigner Signature (if applicable): 04/08/25 1851 <Electronically signed by Davon Saravia MD> CC: Dr. Tonio Fajardo, DO~ Signed [facility] Work Phone: 1(596) 292-441908-20-2025 Progress note Author Renae Sarabia [facility] Note Date/Time April 08, 2025 6: 51pm [facility] Medical Records Department [address] [place] [address] Progress Note - Nephrology 04/07/25 1046 MR#: [id number] Acct: [id number] Name: PEDRO HILLMAN Rep #:[id number] : 1945 80 From: Renae BENSONC PCP: Dr. Tonio Fajardo, DO Status:ADM IN Location: [place] [id number]- [id number] Subjective Subjective Sitting in chair. No [...] 92.8 H, Lymph % (Auto) 3.1 L, [place] % (Auto) 2.5, Eos % (Auto) 0.0, [...] 12:19 IMPRESSION: NORMAL RENAL ULTRASOUND. Reading Location: [facility] Physical Exam Narrative Alert and [...] kidney from prior ATN after CABG at [place] March 2013 (patient required hemodialysis for short [...] 2 L yesterday. 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 Renal ultrasound, normal ultrasound, no hydronephrosis. Urine [...] for hospital follow-up after hospital discharge in [place] office. Assessment and plan reviewed with Dr. Saravia. 04/07/25 1103 <Electronically signed by Renae ZHONG> Cosigner Signature (if applicable): 04/08/25 1851 <Electronically signed by Davon Saravia MD> CC: ~ Signed [facility] Work Phone: 1(345) 392-815108-20-2025 Progress note Author Nicola Roman [facility] Note Date/Time April 08, 2025 3: 41pm [facility] Medical Records Department [address] [place] [address] Progress Note - Hospitalist 04/08/25 0757 MR#: [id number] Acct: [id number] Name: PEDRO HILLMAN Rep #:[id number] : 1945 80 From: Nicola Roman MD PCP: Dr. Tonio Fajardo, DO Status:ADM IN Location: [place] [address] Reason for Visit Chief Complaint: SOB, Cough [...] (Auto) 91.4 H, Lymph % (Auto) 3.5L, [place] % (Auto) 4.5, Eos % (Auto) 0.0, [...] treated with radiation therapy currently followed by [facility] oncology and will start 7. Chronic [...] 35 Minutes Charges/Coding Visit Charges Inpatient E&M: 69549 Subs Hosp L2 04/08/25 1113 <Electronically signed [...] Cosigner Signature (if applicable): cc: ~* Signed [facility] Work Phone: 1(181) 771-736208-20-2025 Discharge summary Author Nicola Roman [facility] Note Date/Time April 08, 2025 1: 45pm [facility] Medical Records Department [address] [place] [address] Discharge Summary 04/08/25 1114 MR#: [id number] Acct: [id number] Name: PEDRO HILLMAN Rep #:[id number] : 1945 80 From: Nicola Roman MD PCP: Dr. Tonio Fajardo, Status:ADM IN Location: [facility] [id number] Providers Date of Admission: 04/05/25 Date of Discharge: 04/08/25 Primary Care Physician: Dr. Tonio Fajardo, DO Consultations 04/05/25 20:36 Consult: Nephrology Routine Consulting Provider: Davon Saravia Reason for Consult: CKD; stage IV with Hyperkalemia and AE CHF. EMERGENT Consult: No MD Notified: Yes Date Notified: 04/06/25 Time Notified: 06:58 Method of Notification: Answering Service 04/06/25 07:14 Consult: Onc/Wound/night guard Routine Comment: Reason for Consult:: burn R [...] treated with radiation therapy currently followed by [facility] oncology and will start 7. Chronic [...] (Auto) 91.4 H, Lymph % (Auto) 3.5L, [place] % (Auto) 4.5, Eos % (Auto) 0.0, [...] Self Care Charges/Coding Visit Charges Inpatient E&M: 70213 Disch Hosp >30min 04/08/25 1345 <Electronically signed by Nicola Roman MD> Cosigner Signature (if applicable): CC: Dr. Nicola Roman MD; Dr. Tonio Fajardo DO~ Signed [facility] Work Phone: 1(250) 568-478708-20-2025 [facility]08-19-2025 Progress note Author Nicola Roman [facility] Note Date/Time April 07, 2025 11 :26am [facility] Medical Records Department [address] [place] [address] Progress Note - Hospitalist 04/07/25 1113 MR#: [id number] Acct: [id number] Name: PEDRO HILLMAN Rep #:[id number] : 1945 80 From: Nicola Roman MD PCP: Dr. Tonio Fajardo, DO Status:ADM IN Location: [place] [address] Reason for Visit Chief Complaint: SOB, Cough [...] 92.8 H, Lymph % (Auto) 3.1 L, [place] % (Auto) 2.5, Eos % (Auto) 0.0, [...] 12:19 IMPRESSION: NORMAL RENAL ULTRASOUND. Reading Location: [facility] Physical Exam Narrative S GENERAL: [...] treated with radiation therapy currently followed by [facility] oncology and will start 7. Chronic [...] 52 Minutes Charges/Coding Visit Charges Inpatient E&M: 22779 Subs Hosp L3 04/07/25 1126 <Electronically signed by Nicola Roman MD> Cosigner Signature (if applicable): CC: ~ Signed [facility] Work Phone: 1(353) 550-310908-18-2025 Progress note Author Deric Lantigua [facility] Note Date/Time April 06, 2025 4: 53pm [facility] Medical Records Department [address] [address] Progress Note - Hospitalist 04/06/25 0837 MR#: [id number] Acct: [id number] Name: PEDRO HILLMAN Rep #:[id number] : 1945 80 From: Deric Smith PCP: Dr. Tonio Fajardo, DO Status:ADM IN Location: [place] [address] Reason for Visit Chief Complaint: SOB, Cough [...] (Auto) 79.7 H, Lymph % (Auto) 7.3L, [place] % (Auto) 10.7 H, Eos % (Auto) [...] Clarity Clear, Urine pH 5.0, Ur Specific [place] 1.015, Urine Protein 100 H, Urine Glucose [...] (Auto) 81.9 H, Lymph % (Auto) 6.4L, [place] % (Auto) 10.1 H, Eos % (Auto) [...] process cannot be reliably excluded. Reading Location: [facility] Chest X-Ray 04/06/25 04:13 IMPRESSION: Unchanged bilateral pleural effusions. Unchanged passive atelectatic airspace disease of the lower lobes. Unremarkable median sternotomy wires. Minimal decrease in pulmonary congestion/infiltrates. Enlarged cardiac silhouette. Reading Location: [place] [address] Physical Exam Narrative Seen and examined Patient [...] oxygen requirement with increasing productive cough. Patient's qhyjexso-lw-fzz increased O2 to 4 L. Noleg swelling. 1. Acute on chronic HFpEF: Patient is being admitted in the PCU. proBNP 4003. Chest x-ray initially shows moderate right and small left pleural effusion and atelectasis and pulmonary edema. Serial troponins 64, 62 and 60 flat and indeterminate and not indicative of ACS.2D echo 03/05 reported EF 55%, PASP 42 mmHg with moderate TR, moderate WV and mild PI. TSH normal Plan: Patient is started on furosemide 40 mg IV twice daily. Heart failure coremeasures including intake and output, fluid restriction less than 1500 mL, dailyweight monitoring, kidney and electrolytes monitoring. 2. Persistent trial flutter/atrial fib: Currently patient in sinus rhythm. On surveillance monitor sinus rhythm 105 bpm. During previous [...] (Auto) 79.7 H, Lymph % (Auto) 7.3L, [place] % (Auto) 10.7 H, Eos % (Auto) [...] Clarity Clear, Urine pH 5.0, Ur Specific [place] 1.015, Urine Protein 100 H, Urine Glucose [...] (Auto) 81.9 H, Lymph % (Auto) 6.4L, [place] % (Auto) 10.1 H, Eos % (Auto) [...] 140 H Charges/Coding Visit Charges Inpatient E&M: 75028 Subs Hosp L3 04/06/25 2607 <Electronically signed by Deric Lantigua MD> Cosigner Signature (if applicable): CC: ~ Signed [facility] Work Phone: 1(586) 918-151208-18-2025 Radiology Diagnostic study [facility]08-18-2025 History and physical note Author Nicola Madison [facility] Note Date/Time April 06, 2025 6: 23am [facility] Medical Records Department [address] [place] [address] H&P Exam - Hospitalist 04/05/251917 MR#: [id number] Acct: [id number] Name: PEDRO HILLMAN Rep #:[id number] : 1945 80 From: Nicola Levy DO PCP: Dr. Tonio Fajardo, DO Status:ADM IN Location: [facility] [id number]- [id number] HPI - General General Date of [...] patient still FULL CODE who presents to [facility] ER complaining of shortness of breath, cough [...] stage 3 Atherosclerosis of coronary artery of [place] heart without angina pectoris Hyperlipidemia Lower extremity [...] (Auto) 79.7 H, Lymph % (Auto) 7.3L, [place] % (Auto) 10.7 H, Eos % (Auto) [...] process cannot be reliably excluded. Reading Location: [id number] Assessment & Plan Assessment/Plan (1) Acute on [...] 75 minutes. Charges/Coding Visit Charges Inpatient E&M: 00156 Init Hosp L3 04/06/25 0623 <Electronically signed by Nicola Lindsey DO> Cosigner Signature (if applicable): CC: Dr. Nicola Lindsey DO; Dr. Tonio Fajardo DO~ Signed [facility] Work Phone: 1(784) 561-911008-18-2025 Radiology Diagnostic study [facility]08-18-2025 Discharge summary Author Ld Hayes [facility] Note Date/Time April 06, 2025 12 :36am [facility] Medical Records Department [address] [place] [address] Emergency Department Summary 04/05/25 MR#: [id number] Acct: [id number] Name: PEDRO HILLMAN Rep #:[id number] : 1945 80 From: Ld Quintero PCP: Dr. Tonio Fajardo DO Status:ADM IN Location: [address] History of Present Illness Chief Complaint: Hypotension Informant: patient and family Narrative Narrative: Presents by EMS from home daughter in law present. Increasing productive cough. Chronic oxygenation of 3 L for COPD history remote history of lung cancer. Smwpsnkz-od-khr reports that increase his oxygen to 4 [...] CKD history. He is followed by the [place] [facility]. Reports he was admitted 3 [...] stage 3 Atherosclerosis of coronary artery of [place] heart without angina pectoris Hyperlipidemia Lower extremity [...] clinician: Hospitalist This note was generated with [employer] dictation software. It may contain incorrectwords, spelling, [...] 79.7 H Lymph % (Auto) 7.3 L [place] % (Auto) 10.7 H Eos % (Auto) [...] process cannot be reliably excluded. Reading Location: [id number] Discharge Plan Dx/Rx/DC Orders Clinical Impression: CHF exacerbation, Chronic kidney disease, stage 3, Atrial flutter, Chronic anticoagulation, Hyperkalemia Disposition Disposition: Acute Care Hospital [facility] Discharge Date/Time: 04/05/25 20:38 What to do if you have Problems For any increased pain, shortness of breath, bleeding, nausea or vomiting, chestpain, or any unexpected problems, contact your Primary Care Provider. Call [facility] ([phone]) or report to the closest Emergency Room. Call 911 if necessary. 04/06/25 0036 <Electronically signed by Ld Quintero> Cosigner Signature (if applicable): CC: Dr. Tonio Fajardo DO ~ Signed [facility] Work Phone: 1([phone]) 661-942408-17-2025 Radiology [facility] [id number] Discharge summary [facility] Medical Records Department [address] [place] [address] Emergency Department Summary 03/15/25 MR#: [id number] Acct: [id number] Name: PEDRO HILLMAN Rep #:[id number] : 1945 80 From: Alex Matias MD [...] similar symptoms: Yes Recent Illness/[facility]ospital[facility] Yes (CH[facility] Medical History Other persistent atrial fibrillation New onset atrial flutter COVID Wears hearing aid in both ears Former smoker Coronary artery disease Peripheral vascular occlusive disease BPH (benign prostatic hyperplasia) Chronic kidney disease, stage 3 Atherosclerosis of coronary artery of [place] heart without angina pectoris Hyperlipidemia Lower extremity [...] 4 doses of apixaban, Eliquis Print Language: [place] Timorese Disposition Disposition: Home, Self Care What to do if you have Problems For any increased pain, shortness of breath, bleeding, nausea or vomiting, chestpain, or any unexpected problems, contact your Primary Care Provider. Call [facility] ([phone]) or report tothe closest Emergency Room. Call 911 if necessary. 03/15/25 8528 Cosigner Signature (if applicable): CC: Dr. Tonio Fajardo, DO ~ Signed [facility]07-27-2025 Discharge summary Author Alex Matias [facility] Note Date/Time March 15, 2025 6:22 pm [facility] Medical Records Department [address] [place] [address] Emergency Department Summary 03/15/25 MR#: [id number] Acct: [id number] Name: PEDRO HILLMAN Rep #:[id number] : 1945 80 From: Alex Matias MD [...] similar symptoms: Yes Recent Illness/Hospitalization: Yes (CHF) [facility] Medical History Other persistent atrial fibrillation New onset atrial flutter COVID Wears hearing aid in both ears Former smoker Coronary artery disease Peripheral vascular occlusive disease BPH (benign prostatic hyperplasia) Chronic kidney disease, stage 3 Atherosclerosis of coronary artery of [place] heart without angina pectoris Hyperlipidemia Lower extremity [...] 4 doses of apixaban, Eliquis Print Language: [place] Disposition Disposition: Home, Self Care What to do if you have Problems For any increased pain, shortness of breath, bleeding, nausea or vomiting, chestpain, or any unexpected problems, contact your Primary Care Provider. Call [facility] ([phone]) or report to the closest Emergency Room. Call 911 if necessary. 03/15/25 1822 <Electronically signed by Alex Matias MD> Cosigner Signature (if applicable): CC: Dr. Tonio Fajardo, DO ~ Signed [facility] Work Phone: 1(120) 674-509207-27-2025 Hospital Discharge instructionsAdditional Instructions 1. Hold the next 4 doses of apixaban, Eliquis. 2. Take amoxicillin as prescribed until gone 3. Contact Dr. Vasquez's office in the morning to be seen later this week to have the pack removed.[facility] Work Phone: 1(263) 576-601407-21-2025 Consult note [facility] Medical Records Department [address] [place] [address] Counseling Note - Pharmacy 03/09/25 6980 MR#: [id number] Acct: [id number] Name: PEDRO HILLMAN Rep #:[id number] : 1945 80 From: Mala Sterling PCP: Dr. Tonio Fajardo, Status:ADM IN Y Location: [place] [address] Pharmacy [facility] Counseling Pharmacy Service has performed discharge medication [...] Signature (if applicable): Date CC: ~ Signed [facility]07-21-2025 Discharge summary Author Deric Lantigua [facility] Note Date/Time March 09, 2025 12:5 2pm [facility] Medical Records Department [address] [place] [address] Discharge Summary 03/09/25 1251 MR#: [id number] Acct: [id number] Name: PEDRO HILLMAN Rep #:[id number] : 1945 80 From: Deric Smith PCP: Dr. Tonio Fajardo, Status:ADM IN Location: [place] [id number]- 1 Providers Date of Admission: 03/04/25 Date [...] Code(s): I25.10 - Atherosclerotic heart disease of [place] coronary artery without angina pectoris Qualifiers: Coronary Disease-Associated Artery/Lesion type: [place] artery [place] vs. transplanted heart: [place] heart Associated angina: without angina Qualified Code(s): I25.10 - Atherosclerotic heart disease of [place] coronary artery without angina pectoris (3) Chronic anticoagulation: Status: Acute Code(s): Z79.01 - alf (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 of anticoagulants Plan 80-year-old gentleman [...] no significant delta change. ACS ruled out. Proposal Writer is consulted. Repeat proBNP is elevated but it does not reflect treatment response as it should not be ordered for that. Clinically patient is feeling better with improvement in shortness of breath. 2D echo 03/05 reported EF 55%, PASP 42 mmHg with moderate TR, moderate WV and mild PI. 03/06: Furosemide changed to [...] conduction. Later on irregular variable conduction on surveillance monitor 03/06: Discussed with the warehouse assembly worker. Metoprolol increased to 25 mg twice daily, [...] pressure in the 90s. Discussed with the warehouse assembly worker. Advised to discontinue to discontinue metoprolol and [...] the CODE STATUS. 03/09: Discussed with the warehouse assembly worker.Patient heart rate controlled in 70s. Yesterday rate was in 80s. Patient tolerated Cardizem 30 mg every 8 hourly therefore discharged on Cardizem CD 120 mg. I called patient's ipziwuuy-gf-xnm and explained the medication. Proposal Writer felt probably does not need even pacemaker. [...] at the right lung base. Reading Location: [facility] Echocardiogram 03/04/25 20:08 Interpretation Summary Moderate [...] right lung base aeration. [facility] Medications at Discharge Home Medications insulin [...] 03/05/25 14:17 SB (Rec: 03/05/25 14:17 SB [id number]) Nutrition Malnutrition Evidence of Yes Malnutrition Exists [...] (Auto) 72.6 H, Lymph % (Auto) 9.7L, [place] % (Auto) 12.1 H, Eos % (Auto) [...] Self Care Charges/Coding Visit Charges Inpatient E&M: 49880 Disch Hosp >30min 03/09/25 1252 <Electronically signed by Deric Lantigua MD> Cosigner Signature (if applicable): CC: Dr. Tonio Fajardo DO; Dr. Willian Glaser MD; Dr. Deric Lantigua MD~ Signed [facility] Work Phone: 1(414) 876-748407-21-2025 Discharge summary Author Deric Lantigua [facility] Note Date/Time March 09, 2025 12:4 4pm [facility] Medical Records Department [address] [place] [address] Instructions for Home/Discharge Instructions 03/09/25 1031 MR#: [id number] Acct: [id number] Name: PEDRO HILLMAN Rep #:[id number] : 1945 80 From: Deric Smith PCP: [...] MD; RICKIE Kumari; RICKIE Cummins ~ Signed [facility] Work Phone: 1(487) 958-655507-21-2025 Hospital Discharge instructionsAdditional Instructions Discharge with Claudio catheter. Date of Discharge: 03/09/25[facility] Work Phone: 1(944) 454-995707-21-2025 Discharge summary [facility] Medical Records Department [address] [place] [address] Discharge Summary 03/09/25 1251 MR#: [id number] Acct: [id number] Name: PEDRO HILLMAN Rep #:[id number] : 1945 80 From: Deric Smith PCP: Dr. Tonio Fajardo DO Status:ADM IN Location: [facility] [id number] 1 Providers Date of Admission: 03/04/25 Date [...] Code(s): I25.10 - Atherosclerotic heart disease of [place] coronary artery without angina pectoris Qualifiers: Coronary Disease-Associated Artery/Lesion type: [place] artery [place] vs. 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 ACS ruled out. Proposal Writer is consulted. Repeat proBNP is elevated but it does not reflect treatment response as it should not be ordered for that. Clinically patient is feeling better with improvement in shortness of breath. 2D echo 03/05 reported EF 55%, PASP 42 mmHg with moderate TR, moderate WV and mild PI. 03/06: Furosemide changed to [...] conduction. Later on irregular variable conduction on surveillance monitor 03/06: Discussed with the warehouse assembly worker. Metoprolol increased to 25 mg twice daily, Cardizem 60 mg [id number]. If heart rate controlled, will switch to [...] pressure in the 90s. Discussed with the warehouse assembly worker. Advised to discontinue to discontinue metoprolol and [...] the CODE STATUS. 03/09: Discussed with the warehouse assembly worker.Patient heart rate controlled in 70s. Yesterday rate was in 80s. Patient tolerated Cardizem 30 mg every 8 hourly therefore discharged on Cardizem CD 120 mg. I called patient's ewjyfmel-il-ecu and explained the medication. Proposal Writer felt probably does not need even pacemaker. [...] at the right lung base. Reading Location: [facility] Echocardiogram 03/04/25 20:08 Interpretation Summary Moderate [...] in right lung base aeration. Reading Location: [place] [address] Medications at Discharge Home Medications insulin glargine [...] 03/05/25 14:17 SB (Rec: 03/05/25 14:17 SB [id number]) Nutrition Malnutrition Evidence of Yes Malnutrition Exists [...] (Auto) 72.6 H, Lymph % (Auto) 9.7L, [place] % (Auto) 12.1 H, Eos % (Auto) [...] Self Care Charges/Coding Visit Charges Inpatient E&M: 20256 Disch Hosp >30min 03/09/25 1252 Cosigner Signature (if applicable): CC: Dr. Tonio Fajardo DO; Dr. Willian Glaser MD; Dr. Deric Lantigua MD~ Signed [facility]07-21-2025 [facility] Discharge summary [facility] Medical Records Department [address] [place] [address] Instructions for Home/Discharge Instructions 03/09/25 1031 MR#: [id number] Acct: [id number] Name: PEDRO HILLMAN Rep #:[id number] : 1945 80 From: Deric Smith PCP: [...] Mitchell; Reinaldo Mclain; Santos Hsu; Iker Rodriguez DECK SUPERVISOR; Leslie Arriaga PA; Tadeo Thakkar Discharge Orders/Prescriptions [...] - Leslie Arriaga PA [Med Staff - [facility] Practice Prof] - Within 2 Weeks Disposition Disposition (needs filled in before D/C Order can be placed): Home, Self Care 03/09/25 1244Pmaribel Lantigua MD CC: DECK SUPERVISOR-Estevan Rodriguez; Dr. Susan Hawley MD; Dr. Paris Tiwari MD; Dr. Marjorie Green MD; Dr. Nicolette Mcdonald MD; Dr. Martin Vivas MD; Dr. Jose Lai MD; Dr. Issa Looney MD; Dr. Nicola Lindsey DO; Dr. Chago Miller MD; Dr. Tonio Fajardo DO; Dr. Willian Glaser MD; Dr. Orly Mitchell MD;Dr. Santos Hsu MD; Dr. Reinaldo Mclain MD; RICKIE Kumari; RICKIE Cummins ~ Signed [facility]07-21-2025 Progress note Author Willian Glaser [facility] Note Date/Time March 09, 2025 9:53 am [facility] Medical Records Department [address] [place] [address] Progress Note - Cardiology 03/09/25 0943 MR#: [id number] Acct: [id number] Name: PEDRO HILLMAN Rep #:[id number] : 1945 80 From: Willian Glaser MD PCP: Dr. Tonio Fajardo DO Status:ADM IN Location: [place] [id number] Subjective Subjective Patient evaluated in a [...] (Auto) 72.6 H, Lymph % (Auto) 9.7L, [place] % (Auto) 12.1 H, Eos % (Auto) [...] 72.6 H, Lymph % (Auto) 9.7 L, [place] % (Auto) 12.1 H, Eos % (Auto) [...] disease: QUALIFIERS: Coronary Disease-Associated Artery/Lesion type: nativeartery [place] vs. transplanted heart: [place] heart Associated angina: without angina Qualified Code(s): I25.10 - Atherosclerotic heart disease of [place] coronary artery without angina pectoris PLAN: Patient carries a history of bypass graft surgery followed in the [facility]. The patient should be reevaluated in 2 to 4 weeks in the [facility] with advanced practitioner. Given the [...] At discharge patient should follow-up with the [facility] advanced practitioner in 2 to 3 weeks. 4. If further assistance is needed please reconsult the [facility]. Charges/Coding Visit Charges Inpatient E&M: 46445 Subs Hosp L3 03/09/25 0953 <Electronically signed by Willian Glaser MD> Cosigner Signature (if applicable): CC: ~ Signed [facility] Work Phone: 1(981) 150-773407-21-2025 Progress note [facility] Medical Records Department [address] [place] [address] Progress Note - Cardiology 03/09/25 0943 MR#: [id number] Acct: [id number] Name: PEDRO HILLMAN Rep #:[id number] : 1945 80 From: Willian Glaser MD PCP: Dr. Tonio Fajardo, DO Status:ADM IN Location: [place] [address] Subjective Subjective Patient evaluated in a seated [...] (Auto) 72.6 H, Lymph % (Auto) 9.7L, [place] % (Auto) 12.1 H, Eos % (Auto) [...] 72.6 H, Lymph % (Auto) 9.7 L, [place] % (Auto) 12.1 H, Eos % (Auto) [...] disease: QUALIFIERS: Coronary Disease-Associated Artery/Lesion type: nativeartery [place] vs. transplanted heart: [place] heart Associated angina: without angina Qualified Code(s): I25.10 - Atherosclerotic heart disease of [place] coronary artery without angina pectoris PLAN: Patient carries a history of bypass graft surgery followed in the [facility]. The patient should be reevaluated in 2 to 4 weeks in the [facility] with advanced practitioner. Given the [...] At discharge patient should follow-up with the [facility] advanced practitioner in 2 to3 weeks. 4. If further assistance is needed please reconsult the [facility]. Charges/Coding Visit Charges Inpatient E&M: 20770 Subs Hosp L3 03/09/25 0953 Cosigner Signature (if applicable): CC: ~ Signed [facility]07-20-2025 Progress note Author Deric Lantigua [facility] Note Date/Time March 08, 2025 1:34 pm [facility] Medical Records Department [address] [place] [address] Progress Note - Hospitalist 03/08/25 0844 MR#: [id number] Acct: [id number] Name: PEDRO HILLMAN Rep #:[id number] : 1945 80 From: Deric Smith PCP: Dr. Tonio Fajardo, DO Status:ADM IN Location: [place] [address] Reason for Visit Chief Complaint: SOB. Objective [...] 03/05/25 14:17 SB (Rec: 03/05/25 14:17 SB [id number]) Nutrition Malnutrition Evidence of Yes Malnutrition Exists [...] hematuria: (8) Atherosclerosis of coronary artery of [place] heart without angina pectoris: QUALIFIERS: Coronary Disease-Associated Artery/Lesion type: nativeartery Qualified Code(s): I25.10 - Atherosclerotic heart disease of [place] coronary artery without angina pectoris (9) Overweight [...] no significant delta change. ACS ruled out. Proposal Writer is consulted. Repeat proBNP is elevated but it does not reflect treatment response as it should not be ordered for that. Clinically patient is feeling better with improvement in shortness of breath. 2D echo 03/05 reported EF 55%, PASP 42 mmHg with moderate TR, moderate WV and mild PI. 03/06: Furosemide changed to [...] conduction. Later on irregular variable conduction on surveillance monitor 03/06: Discussed with the warehouse assembly worker. Metoprolol increased to 25 mg twice daily, [...] pressure in the 90s. Discussed with the warehouse assembly worker. Advised to discontinue to discontinue metoprolol and [...] at the right lung base. Reading Location: [facility] Echocardiogram 03/04/25 20:08 Interpretation Summary Moderate [...] in right lung base aeration. Reading Location: [place] [address] Charges/Coding Addendum Addendum: Total time of the visit including total time spent in counseling or coordinationof care, (more than 50% of the total time, spent in obtaining medical information from nurses and other ancillary care providers ,explaining to the patient about labs, imaging, diagnosis and management of active complex medical conditions), multiple active cardiac issues, urinary retention discussion with warehouse assembly worker and clinical update given to patient's xwxzmocq-xn-lnn, review of labs and imaging is 35 minutes. Visit Charges Inpatient E&M: 01345 Subs Hosp L3 03/08/25 1040 <Electronically signed by Deric Lantigua MD> Cosigner Signature (if applicable): CC: ~ Signed ADDENDUM by Dr. Deric Lantigua MD on 03/08/25 at 1334 Addendum The patient's son and odyruvcg-sc-gkk came to visit him. They decided patient to be DNR CC arrest with no intubation CODE STATUS changed. Living will/advanced directive/end of life care: Patient does not have living will or advanced directive. He is next of kin is his son and iiymwddw-xx-fbl. After discussion of benefits/risks procedures involved with full code, DNR CC arrest and DNR CC, the patient and his dmbfnnvj-nj-wse he opted for DNR CC arrest with no intubation. Patient also said that he does not want pacemaker but his pbkqxmch-ae-gys and son will discuss with him Patient does want artificial life support including intubation, tube feed, ventilator and/chest compression, central venous catheter, vasopressor and DC shock if needed Total time spent in okxf-mt-ibus encounter in discussion of advanced directive 17 minutes. 03/08/25 1334<Electronically signed by Deric Lantigua MD> Cosigner Signature (if applicable): cc: ~* Signed [facility] Work Phone: 1(415) 757-989407-20-2025 Progress note [facility] Medical Records Department [address] [address] Progress Note - Hospitalist 03/08/25 0844 MR#: [id number] Acct: [id number] Name: PEDRO HILLMAN Rep #:[id number] : 1945 80 From: Deric Smith PCP: Dr. Tonio Fajardo, DO Status:ADM IN Location: [place] [address] Reason for Visit Chief Complaint: SOB. Objective [...] 03/05/25 14:17 SB (Rec: 03/05/25 14:17 SB [id number]) Nutrition Malnutrition Evidence of Yes Malnutrition Exists [...] hematuria: (8) Atherosclerosis of coronary artery of [place] heart without angina pectoris: QUALIFIERS: Coronary Disease-Associated Artery/Lesion type: nativeartery Qualified Code(s): I25.10 - Atherosclerotic heart disease of [place] coronary artery without angina pectoris (9) Overweight [...] no significant delta change. ACS ruled out. Proposal Writer is consulted. Repeat proBNP is elevated but it does not reflect treatment response as it should not be ordered for that. Clinically patient is feeling better with improvement in shortness of breath. 2D echo 03/05 reported EF 55%, PASP 42 mmHg with moderate TR, moderate WV and mild PI. 03/06: Furosemide changed to [...] conduction. Later on irregular variable conduction on surveillance monitor 03/06: Discussed with the warehouse assembly worker. Metoprolol increased to 25 mg twice daily, Cardizem 60 mg V2hwhetr. If heart rate controlled, will switch to [...] pressure in the 90s. Discussed with the warehouse assembly worker. Advised to discontinue to discontinue metoprolol and [...] at the right lung base. Reading Location: [facility] Echocardiogram 03/04/25 20:08 Interpretation Summary Moderate [...] in right lung base aeration. Reading Location: [place] [address] Charges/Coding Addendum Addendum: Total time of the visit including total time spent in counseling or coordinationof care, (more than50% of the total time, spent in obtaining medical information from nurses and other ancillary care providers ,explaining to the patient about labs, imaging, diagnosis and management of active complexmedical conditions), multiple active cardiac issues, urinary retention discussion with cardiologistand clinical update given to patient's itbfkrxp-qz-iij, review of labs and imaging is 35 minutes. Visit Charges Inpatient E&M: 01481 Subs Hosp L3 03/08/25 1040 Cosigner Signature (if applicable): CC: ~ Signed ADDENDUM by Dr. Deric Lantigua MD on 03/08/25 at 1334 Addendum The patient's son and eqbxhjbz-et-icw came to visit him. They decided patient to be DNR CC arrest with no intubation CODE STATUS changed. Living will/advanced directive/end of life care: Patient does not have living will or advanced directive. He is next of kin is his son and wpzjxdld-xr-qhm. After discussion of benefits/risks procedures involved with full code, DNR CC arrest and DNR CC, the patient and his siuqxkpx-ex-fyi he opted for DNR CC arrest with no intubation. Patient also said that he does not want pacemaker but his krkozfex-zu-ate and son will discuss with him Patient does want artificial life support including intubation, tube feed, ventilator and/chest compression, central venous catheter, vasopressor and DC shock if needed Total time spent in qarh-xw-fjin encounter in discussion of advanced directive 17 minutes. 03/08/25 1334 Cosigner Signature (if applicable): cc: ~* Signed [facility]07-20-2025 Progress note Author Marjorie Green [facility] Note Date/Time March 08, 2025 8:51 am [facility] Medical Records Department [address] [place] [address] Progress Note - Cardiology 03/08/25 0848 MR#: [id number] Acct: [id number] Name: PEDRO HILLMAN Rep #:[id number] : 1945 80 From: Marjorie Green MD PCP: Dr. Tonio Fajardo, DO Status:ADM IN Location: [place] [address] Subjective Subjective Denies any complaints. Became bradycardic [...] Cosigner Signature (if applicable): CC: ~ Signed [facility] Work Phone: 1(648) 382-649707-20-2025 Progress note [facility] Medical Records Department [address] [place] [address] Progress Note - Cardiology 03/08/25 0848 MR#: [id number] Acct: [id number] Name: PEDRO HILLMAN Rep #:[id number] : 1945 80 From: Marjorie Green MD PCP: Dr. Tonio Fajardo, DO Status:ADM IN Location: [place] [address] Subjective Subjective Denies any complaints. Became bradycardic [...] Cosigner Signature (if applicable): CC: ~ Signed [facility]07-19-2025 Progress note Author Deric Lantigua [facility] Note Date/Time March 07, 2025 1:51 pm [facility] Medical Records Department [address] [place] [address] Progress Note - Hospitalist 03/07/25 7361 MR#: [id number] Acct: [id number] Name: PEDRO HILLMAN Rep #:[id number] : 1945 80 From: Deric Smith PCP: Dr. Tonio Fajardo, DO Status:ADM IN Location: [place] [address] Reason for Visit Chief Complaint: SOB. Objective [...] 03/05/25 14:17 SB (Rec: 03/05/25 14:17 SB [id number]) Nutrition Malnutrition Evidence of Yes Malnutrition Exists [...] hematuria: (8) Atherosclerosis of coronary artery of [place] heart without angina pectoris: QUALIFIERS: Coronary Disease-Associated Artery/Lesion type: nativeartery Qualified Code(s): I25.10 - Atherosclerotic heart disease of [place] coronary artery without angina pectoris (9) Overweight [...] no significant delta change. ACS ruled out. Proposal Writer is consulted. Repeat proBNP is elevated but it does not reflect treatment response as it should not be ordered for that. Clinically patient is feeling better with improvement in shortness of breath. 2D echo 03/05 reported EF 55%, PASP 42 mmHg with moderate TR, moderate WV and mild PI. 03/06: Furosemide changed to [...] conduction. Later on irregular variable conduction on surveillance monitor 03/06: Discussed with the warehouse assembly worker. Metoprolol increased to 25 mg twice daily, [...] at the right lung base. Reading Location: [facility] Echocardiogram 03/04/25 20:08 Interpretation Summary Moderate [...] in right lung base aeration. Reading Location: [place] [address] Charges/Coding Visit Charges Inpatient E&M: 53638 Subs Hosp L2 03/07/25 1351 <Electronically signed by Deric Lantigua MD> Cosigner Signature (if applicable): CC: ~ Signed [facility] Work Phone: 1(571) 181-582607-19-2025 Progress note [facility] Medical Records Department [address] [place] [address] Progress Note - Hospitalist 03/07/25 1342 MR#: [id number] Acct: [id number] Name: PEDRO HILLMAN Rep #:[id number] : 1945 80 From: Deric Smith PCP: Dr. Tonio Fajardo, DO Status:ADM IN Location: [place] [address] Reason for Visit Chief Complaint: SOB. Objective [...] 03/05/25 14:17 SB (Rec: 03/05/25 14:17 SB [id number]) Nutrition Malnutrition Evidence of Yes Malnutrition Exists [...] hematuria: (8) Atherosclerosis of coronary artery of [place] heart without angina pectoris: QUALIFIERS: Coronary Disease-Associated Artery/Lesion type: nativeartery Qualified Code(s): I25.10 - Atherosclerotic heart disease of [place] coronary artery without angina pectoris (9) Overweight [...] no significant delta change. ACS ruled out. Proposal Writer is consulted. Repeat proBNP is elevated but it does not reflect treatment response as it should not be ordered for that. Clinically patient is feeling better with improvement in shortness of breath. 2D echo 03/05 reported EF 55%, PASP 42 mmHg with moderate TR, moderate WV and mild PI. 03/06: Furosemide changed to [...] conduction. Later on irregular variable conduction on surveillance monitor 03/06: Discussed with the warehouse assembly worker. Metoprolol increased to 25 mg twice daily, Cardizem 60 mg U3njrbuj. If heart rate controlled, will switch to [...] at the right lung base. Reading Location: [facility] Echocardiogram 03/04/25 20:08 Interpretation Summary Moderate [...] in right lung base aeration. Reading Location: [place] [address] Charges/Coding Visit Charges Inpatient E&M: 79216 Subs Hosp L2 03/07/25 1359 Cosigner Signature (if applicable): CC: ~ Signed [facility]07-18-2025 Progress note Author Deric Lantigua [facility] Note Date/Time March 06, 2025 3:46 pm [facility] Medical Records Department [address] [place] [address] Progress Note - Hospitalist 03/06/25 1540 MR#: [id number] Acct: [id number] Name: PEDRO HILLMAN Rep #:[id number] : 1945 80 From: Deric Smith PCP: Dr. Tonio Fajardo, DO Status:ADM IN Location: [place] [address] Reason for Visit Chief Complaint: SOB. Objective [...] 03/05/25 14:17 SB (Rec: 03/05/25 14:17 SB [id number]) Nutrition Malnutrition Evidence of Yes Malnutrition Exists [...] is improved. Still in A-fib/flutter with heart [id number]. Shortness of breath is better. Did not [...] hematuria: (8) Atherosclerosis of coronary artery of [place] heart without angina pectoris: QUALIFIERS: Coronary Disease-Associated Artery/Lesion type: nativeartery Qualified Code(s): I25.10 - Atherosclerotic heart disease of [place] coronary artery without angina pectoris (9) Overweight [...] no significant delta change. ACS ruled out. Proposal Writer is consulted. Repeat proBNP is elevated but it does not reflect treatment response as it should not be ordered for that. Clinically patient is feeling better with improvement in shortness of breath. 2D echo 03/05 reported EF 55%, PASP 42 mmHg with moderate TR, moderate WV and mild PI. 03/06: Furosemide changed to [...] conduction. Later on irregular variable conduction on surveillance monitor 03/06: Discussed with the warehouse assembly worker. Metoprolol increased to 25 mg twice daily, [...] at the right lung base. Reading Location: [facility] Echocardiogram 03/04/25 20:08 Interpretation Summary Moderate [...] in right lung base aeration. Reading Location: [place] [address] Charges/Coding Visit Charges Inpatient E&M: 66037 Subs Hosp L2 03/06/25 1546 <Electronically signed by Deric Lantigua MD> Cosigner Signature (if applicable): CC: ~ Signed [facility] Work Phone: 1(170) 988-486407-18-2025 Progress note [facility] Medical Records Department [address] [place] [address] Progress Note - Hospitalist 03/06/25 1540 MR#: [id number] Acct: [id number] Name: PEDRO HILLMAN Rep #:[id number] : 1945 80 From: Deric Smith PCP: Dr. Tonio Fajardo, DO Status:ADM IN Location: [place] [address] Reason for Visit Chief Complaint: SOB. Objective [...] 03/05/25 14:17 SB (Rec: 03/05/25 14:17 SB [id number]) Nutrition Malnutrition Evidence of Yes Malnutrition Exists [...] is improved. Still in A-fib/flutter with heart [id number]. Shortness of breath is better. Did not [...] hematuria: (8) Atherosclerosis of coronary artery of [place] heart without angina pectoris: QUALIFIERS: Coronary Disease-Associated Artery/Lesion type: nativeartery Qualified Code(s): I25.10 - Atherosclerotic heart disease of [place] coronary artery without angina pectoris (9) Overweight [...] no significant delta change. ACS ruled out. Proposal Writer is consulted. Repeat proBNP is elevated but it does not reflect treatment response as it should not be ordered for that. Clinically patient is feeling better with improvement in shortness of breath. 2D echo 03/05 reported EF 55%, PASP 42 mmHg with moderate TR, moderate WV and mild PI. 03/06: Furosemide changed to [...] conduction. Later on irregular variable conduction on surveillance monitor 03/06: Discussed with the warehouse assembly worker. Metoprolol increased to 25 mg twice daily, Cardizem 60 mg [id number]. If heart rate controlled, will switch to [...] at the right lung base. Reading Location: [facility] Echocardiogram 03/04/25 20:08 Interpretation Summary Moderate [...] in right lung base aeration. Reading Location: [place] [address] Charges/Coding Visit Charges Inpatient E&M: 15830 Subs Hosp L2 03/06/25 1546 Cosigner Signature (if applicable): CC: ~ Signed [facility]07-18-2025 Consult note Author Marjorie Green [facility] Note Date/Time March 06, 2025 9:33 am [facility] Medical Records Department [address] [place] [address] Consultation - Cardiology 03/06/2526 MR#: [id number] Acct: [id number] Name: PEDRO HILLMAN Rep #:[id number] : 1945 80 From: Marjorie Green MD PCP: Dr. Tonio Fajardo, DO Status:ADM IN Location: [place] [id number] Assessment & Plan Assessment/Plan (1) Atrial [...] stage 3 Atherosclerosis of coronary artery of [place] heart without angina pectoris Hyperlipidemia Lower extremity [...] applicable): CC: Dr. Tonio Fajardo DO~ Signed [facility] Work Phone: 1(958) 232-701007-18-2025 Consult note [facility] Medical Records Department [address] [place] [address] Consultation - Cardiology 03/06/25925 MR#: [id number] Acct: [id number] Name: PEDRO HILLMAN Rep #:[id number] : 1945 80 From: Marjorie Green MD PCP: Dr. Tonio Fajardo DO Status:ADM IN Location: [place] [address]- 1 Assessment & Plan Assessment/Plan (1) Atrial [...] stage 3 Atherosclerosis of coronary artery of [place] heart without angina pectoris Hyperlipidemia Lower extremity [...] applicable): CC: Dr. Tonio Fajardo, DO~ Signed [facility]07-17-2025 Progress note Author Deric Lantigua [facility] Note Date/Time March 05, 2025 3:56 pm [facility] Medical Records Department [address] [place], [place] [address] Progress Note - Hospitalist 03/05/25 0719 MR#: [id number] Acct: [id number] Name: PEDRO HILLMAN Rep #:[id number] : 1945 80 From: Deric Smith PCP: Dr. Tonio Fajardo, DO Status:ADM IN Location: [place] [address] Reason for Visit Chief Complaint: SOB. Objective [...] 78.1 H, Lymph % (Auto) 10.1 L, [place] % (Auto) 9.1, Eos % (Auto) 1.6, [...] Clarity Cloudy, Urine pH 6.5, Ur Specific [place] 1.010, Urine Protein 100 H, Urine Glucose [...] (Auto) 76.4 H, Lymph % (Auto) 9.5L, [place] % (Auto) 11.4 H, Eos % (Auto) [...] at the right lung base. Reading Location: [facility] Chest X-Ray 03/05/25 04:30 IMPRESSION: Small interval improvement in right lung base aeration. Reading Location: [place] [address] Rhythm Strip Rhythm Strip: Atrial flutter Rate: [...] hematuria: (8) Atherosclerosis of coronary artery of [place] heart without angina pectoris: QUALIFIERS: Coronary Disease-Associated Artery/Lesion type: nativeartery Qualified Code(s): I25.10 - Atherosclerotic heart disease of [place] coronary artery without angina pectoris (9) Overweight [...] no significant delta change. ACS ruled out. Proposal Writer is consulted. Repeat proBNP is elevated but it does not reflect treatment response as it should not be ordered for that. Clinically patient is feeling better with improvement in shortness of breath. 2D echo 03/05 reported EF 55%, PASP 42 mmHg with moderate TR, moderate WV and mild PI. 2. EKG evidence of Atrial Flutter; with Rapid Ventricular Response of ~117 bpm even after being treated with IV Cardizem bolus probably precipitating CHF exacerbation: Patient already on apixaban patient had digoxin. TSH 3.7 normal. Twelve-lead EKG individually reviewed and shows atrial flutter 2 is to 1 conduction. Later on irregular variable conduction on surveillance monitor 3. CKD; stage IIIb with hyperkalemia, [...] Clarity Cloudy, Urine pH 6.5, Ur Specific [place] 1.010, Urine Protein 100 H, Urine Glucose [...] (Auto) 76.4 H, Lymph % (Auto) 9.5L, [place] % (Auto) 11.4 H, Eos % (Auto) [...] at the right lung base. Reading Location: [facility] Echocardiogram 03/04/25 20:08 Interpretation Summary Moderate [...] in right lung base aeration. Reading Location: [place] [address] Charges/Coding Addendum Addendum: Total time of the [...] imagingis 35 minutes. Visit Charges Inpatient E&M: 56710 Subs Hosp L3 03/05/25 1556 <Electronically signed by Deric Lantigua MD> Cosigner Signature (if applicable): CC: ~ Signed [facility] Work Phone: 1(277) 516-707107-17-2025 Progress note [facility] Medical Records Department [address] [place] [address] Progress Note - Hospitalist 03/05/25 0719 MR#: [id number] Acct: [id number] Name: PEDRO HILLMAN Rep #:[id number] : 1945 80 From: Deric Smith PCP: Dr. Tonio Fajardo, DO Status:ADM IN Location: [place] [address] Reason for Visit Chief Complaint: SOB. Objective [...] 78.1 H, Lymph % (Auto) 10.1 L, [place] % (Auto) 9.1, Eos % (Auto) 1.6, [...] Clarity Cloudy, Urine pH 6.5, Ur Specific [place] 1.010, Urine Protein 100 H, Urine Glucose [...] (Auto) 76.4 H, Lymph % (Auto) 9.5L, [place] % (Auto) 11.4 H, Eos % (Auto) [...] at the right lung base. Reading Location: [facility] Chest X-Ray 03/05/25 04:30 IMPRESSION: Small interval improvement in right lung base aeration. Reading Location: [facility] Rhythm Strip Rhythm Strip: Atrial flutter [...] hematuria: (8) Atherosclerosis of coronary artery of [place] heart without angina pectoris: QUALIFIERS: Coronary Disease-Associated Artery/Lesion type: nativeartery Qualified Code(s): I25.10 - Atherosclerotic heart disease of [place] coronary artery without angina pectoris (9) Overweight [...] no significant delta change. ACS ruled out. Proposal Writer is consulted. Repeat proBNP is elevated but it does not reflect treatment response as it should not be ordered for that. Clinically patient is feeling better with improvement in shortness of breath. 2D echo 03/05 reported EF 55%, PASP 42 mmHg with moderate TR, moderate WV and mild PI. 2. EKG evidence of Atrial Flutter; with Rapid Ventricular Response of ~117 bpm even after being treated with IV Cardizem bolus probably precipitating CHF exacerbation: Patient already on apixaban patient had digoxin. TSH 3.7 normal. Twelve-lead EKG individually reviewed and shows atrial flutter 2 is to 1 conduction. Later on irregular variable conduction on surveillance monitor 3. CKD; stage IIIb with hyperkalemia, [...] Clarity Cloudy, Urine pH 6.5, Ur Specific [place] 1.010, Urine Protein 100 H, Urine Glucose [...] (Auto) 76.4 H, Lymph % (Auto) 9.5L, [place] % (Auto) 11.4 H, Eos % (Auto) [...] at the right lung base. Reading Location: [facility] Echocardiogram 03/04/25 20:08 Interpretation Summary Moderate [...] in right lung base aeration. Reading Location: [place] [address] Charges/Coding Addendum Addendum: Total time of the [...] imagingis 35 minutes. Visit Charges Inpatient E&M: 59460 Subs Hosp L3 03/05/25 1556 Cosigner Signature (if applicable): CC: ~ Signed [facility]07-17-2025 History and physical note Author Nicola Madison [facility] Note Date/Time March 05, 2025 6:22 am [facility] Medical Records Department [address] [place] [address] H&P Exam - Hospitalist 03/04/251921 MR#: [id number] Acct: [id number] Name: PEDRO HILLMAN Rep #:[id number] : 1945 80 From: Nicola Levy DO PCP: Dr. Tonio Fajardo, Status:ADM IN Location: [facility] [id number]- [id number] HPI - General General Date of [...] of COVID-19 and OA who presents to [facility] ER complaining of SOB. Mr. Hillman reports [...] ~53% with moderate mitral annular calcification and lbsv-vz-lyoraebx (~1-2+) mitral valve insufficiency with a pulmonary [...] stage 3 Atherosclerosis of coronary artery of [place] heart without angina pectoris Hyperlipidemia Lower extremity [...] 78.1 H, Lymph % (Auto) 10.1 L, [place] % (Auto) 9.1, Eos % (Auto) 1.6, [...] at the right lung base. Reading Location: [place] [address] Assessment & Plan Assessment/Plan (1) CHF exacerbation: QUALIFIERS: Heart failure type: unspecified Qualified Code(s): I50.9 - Heart failure, unspecified (2) Atrial flutter with rapid ventricular response: (3) Chronic anticoagulation: (4) Elevated troponin: (5) Hyperkalemia: (6) Pleural effusion on right: (7) Acute cystitis with hematuria: (8) Atherosclerosis of coronary artery of [place] heart without angina pectoris: QUALIFIERS: Coronary Disease-Associated Artery/Lesion type: nativeartery Qualified Code(s): I25.10 - Atherosclerotic heart disease of [place] coronary artery without angina pectoris (9) Overweight [...] LVEF. Serialize troponin. Finally, we will consult [facility] see this patient on rounds [...] 75 minutes. Charges/Coding Visit Charges Inpatient E&M: 58129 Init Hosp L3 03/05/25 0622 <Electronically signed by Nicola Lindsey DO> Cosigner Signature (if applicable): CC: Dr. Nicola Lindsey DO; Dr. Tonio Fajardo DO~ Signed [facility] Work Phone: 1(127) 251-257707-17-2025 History and physical note [facility] Medical Records Department [address] [place] [address] H&P Exam - Hospitalist 03/04/251921 MR#: [id number] Acct: [id number] Name: PEDRO HILLMAN Rep #:[id number] : 1945 80 From: Nicola Levy DO PCP: Dr. Tonio Fajardo DO Status:ADM IN Location: [place] [id number]- [id number] [facility] General Date of Admission: 03/04/25 Date [...] of COVID-19 and OA who presents to [facility] ERcomplaining of SOB. Mr. Hillman reports his [...] ~53% with moderate mitral annular calcification and pypu-va-dvwuznsb (~1-2+) mitral valve insufficiency with a pulmonary [...] stage 3 Atherosclerosis of coronary artery of [place] heart without angina pectoris Hyperlipidemia Lower extremity [...] 78.1 H, Lymph % (Auto) 10.1 L, [place] % (Auto) 9.1, Eos % (Auto) 1.6, [...] at the right lung base. Reading Location: [place] [address] Assessment & Plan Assessment/Plan (1) CHF exacerbation: QUALIFIERS: Heart failure type: unspecified Qualified Code(s): I50.9 - Heart failure, unspecified (2) Atrial flutter with rapid ventricular response: (3) Chronic anticoagulation: (4) Elevated troponin: (5) Hyperkalemia: (6) Pleural effusion on right: (7) Acute cystitis with hematuria: (8) Atherosclerosis of coronary artery of [place] heart without angina pectoris: QUALIFIERS: Coronary Disease-Associated Artery/Lesion type: nativeartery Qualified Code(s): I25.10 - Atherosclerotic heart disease of [place] coronary artery without angina pectoris (9) Overweight [...] LVEF. Serialize troponin. Finally, we will consult [facility] see this patient on rounds [...] 75 minutes. Charges/Coding Visit Charges Inpatient E&M: 35213 Init Hosp L3 03/05/25 0622 Cosigner Signature (if applicable): CC: Dr. Nicola Lindsey DO; Dr. Tonio Fajardo DO~ Signed [facility]07-17-2025 Radiology Diagnostic study note [facility] Imaging Services [address] [place] [address] [id number] Chest 1 View (Portable) MR#: [id number] Acct: [id number] Name: PEDRO HILLMAN Rep #: [id number] : 1945 M 80 From: Regi Babb MD PCP: Dr. Tonio Fajardo DO Status: ADM IN Study:Chest 1 View (Portable) Date of Exam: 03/05/25 Exam# [id number] Ordering Dr: Nicola Mukherjee DO PROCEDURE: CHEST [...] Lindsey, DO; Dr. Tonio Fajardo DO ~ Manager Council: Signed [facility]07-16-2025 Evaluation note* Diagnosis Onset Date Resolution Status [...] 042024 7:57pm Atherosclerosis of coronary artery of [place] heart without angina pectoris chronic March 04, 2025 7:57pm CHF exacerbation chronic February 7:57pm Hypertension chronic March 04, 2 025 7:57pm [facility] Work Phone: 1(374) 960-490507-16-2025 Evaluation note* Diagnosis Onset Date Resolution Status [...] 042024 7:57pm Atherosclerosis of coronary artery of [place] heart without angina pectoris chronic March 04, [...] by pass graft 2012March 17, 2025 12:51pm [facility] Work Phone: 1(683) 543-117907-16-2025 Evaluation note* Diagnosis Onset Date Resolution Status [...] 042024 7:57pm Atherosclerosis of coronary artery of [place] heart without angina pectoris chronic March 04, [...] aortocoronary by pass graft 2012April 05 7:55pm [facility] Work Phone: 1(425) 567-579507-16-2025 Evaluation note* Diagnosis Onset Date Resolution Status [...] 042024 7:57pm Atherosclerosis of coronary artery of [place] heart without angina pectoris chronic March 04, [...] cardiac pacemaker acute April 10, 2025 11:14am [facility] Work Phone: [phone]) 641-936107-16-2025 Evaluation note* Diagnosis Onset Date Resolution Status [...] 042024 7:57pm Atherosclerosis of coronary artery of [place] heart without angina pectoris chronic March 04, [...] infection) resolv ed April 10, 2025 6:33pm [facility] Work Phone: 1(190) 591-323507-16-2025 Evaluation note* Diagnosis Onset Date Resolution Status [...] 2025 7:57pm Atherosclerosis of coronary artery of [place] heart without angina pectoris chronic March 04, [...] 17, 2025 6:19pm Hyperlipidemia chronic March 6:19pm [facility] Work Phone: 1([phone]) 779-218507-16-2025 Discharge summary Author Chris Ochoa [facility] Note Date/Time March 04, 2025 7:26 pm [facility] Medical Records Department [address] [place] [address] Emergency Department Summary 03/04/25 MR#: [id number] Acct: [id number] Name: PEDRO HILLMAN Rep #:[id number] : 1945 80 From: Chris Ochoa MD [...] stage 3 Atherosclerosis of coronary artery of [place] heart without angina pectoris Hyperlipidemia Lower extremity [...] signs. Back nontender. Movingall 4 extremities. 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 Calves nontender without edema or cords. [...] 78.1 H Lymph % (Auto) 10.1 L [place] % (Auto) 9.1 Eos % (Auto) 1.6 [...] at the right lung base. Reading Location: [facility] Chest x-ray, 2 views, AP and lateral, [...] Chronic anticoagulation Disposition Disposition: Acute Care Hospital [facility] What to do if you have Problems For any increased pain, shortness of breath, bleeding, nausea or vomiting, chestpain, or any unexpected problems, contact your Primary Care Provider. Call [facility] ([phone]) or report to the closest Emergency Room. Call 911 if necessary. 03/04/251925 <Electronically signed by Chris Ochoa MD> Cosigner Signature (if applicable): CC: Dr. Tonio Fajardo DO ~ Signed [facility] Work Phone: 1([phone]) 605-956307-16-2025 Discharge summary [facility] Medical Records Department [address] [place] [address] Emergency Department Summary 03/04/25 MR#: [id number] Acct: [id number] Name: PEDRO HILLMAN Rep #:[id number] : 1945 80 From: Chris Ochoa MD [...] Prior similar symptoms: Yes Recent Illness/Hospitalization: No [facility] Medical History Other persistent atrial fibrillation New onset atrial flutter DIMA Wears hearing aid in both ears Former smoker Coronary artery disease Peripheral vascular occlusive disease BPH (benign prostatic hyperplasia) Chronic kidney disease, stage 3 Atherosclerosis of coronary artery of [place] heart without angina pectoris Hyperlipidemia Lower extremity [...] signs. Back nontender. Movingall 4 extremities. 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 Calves nontender without edema or cords. [...] 78.1 H Lymph % (Auto) 10.1 L [place] % (Auto) 9.1 Eos % (Auto) 1.6 [...] at the right lung base. Reading Location: [facility]-1 Chest x-ray, 2 views, AP and [...] Chronic anticoagulation Disposition Disposition: Acute Care Hospital [facility] What to do if you have Problems For any increased pain, shortness of breath, bleeding, nausea or vomiting, chestpain, or any unexpected problems, contact your Primary Care Provider. Call [facility] ([phone]) or report tothe closest Emergency Room. Call 911 if necessary. 03/04/251925 Cosigner Signature (if applicable): CC: Dr. Tonio Fajardo DO ~ Signed [facility]07-16-2025 Radiology Diagnostic study note [facility] Imaging Services [address] [place] [address] Chest PA and Lateral MR#: [id number] Acct: [id number] Name: PEDRO HILLMAN Rep #: [id number] : 1945 M 80 From: Tom Flores MD PCP: Dr. Tonio Fajardo DO Status: PRE ER Study:Chest PA and Lateral Date of Exam: 03/04/25 Exam# [id number] Ordering Dr: Camila Ochoa MD PROCEDURE: CHEST [...] at the right lung base. Reading Location: [facility]1 CC: Dr. Chris Ochoa MD; Dr. Tonio Fajardo DO ~ Manager Council: Signed [facility]07-16-2025 Discharge summary Author Chris Ochoa [facility] Note Date/Time March 04, 2025 7:26 pm [facility] Medical Records Department [address] [place] [address] Emergency Department Summary 03/04/25 MR#: [id number] Acct: [id number] Name: PEDRO HILLMAN Nora Rep #:[id number] : 1945 80 From: Chris Ochoa MD [...] stage 3 Atherosclerosis of coronary artery of [place] heart without angina pectoris Hyperlipidemia Lower extremity [...] signs. Back nontender. Movingall 4 extremities. 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 Calves nontender without edema or cords. [...] 78.1 H Lymph % (Auto) 10.1 L [place] % (Auto) 9.1 Eos % (Auto) 1.6 [...] at the right lung base. [facility] x-[facility], 2 views, AP and [...] Chronic anticoagulation Disposition Disposition: Acute Care Hospital [facility] What to do if you have Problems For any increased pain, shortness of breath, bleeding, nausea or vomiting, chestpain, or any unexpected problems, contact your Primary Care Provider. Call [facility] ([phone]) or report to the closest Emergency Room. Call 911 if necessary. 03/04/251925 <Electronically signed by Chris Ochoa MD> Cosigner Signature (if applicable): CC: Dr. Tonio Fajardo, ~ Signed [facility] Work Phone: 1(685) 271-494603-20-2025 Evaluation note* Diagnosis Onset Date Resolution Status [...] 2025 7:57pm Atherosclerosis of coronary artery of [place] heart without angina pectoris chronic March 04, 2025 7:57pm CHF exacerbation chronic February 7:57pm [facility] Work Phone: 1(837) 127-400503-13-2025 Radiology Diagnostic study note [facility] Imaging Services [address] [place] [address] CT Chest AND Abd W/ Contrast MR#: [id number] Acct: [id number] Name: PEDRO HILLMAN Rep #: [id number] : 1945 M 79 From: Tom Flores MD PCP: Dr. Tonio Fajardo, DO Status: REG CLI Study:CT Chest AND Abd W/ Contrast Date of Ex am: 10/30/24 Exam# [id number] Ordering Dr: Frantz Zamora MD PROCEDURE: CT [...] use of iterative reconstruction technique). Reading Location: [id number] CC: Dr. Russ Zamora MD; Dr. Tonio Fajardo DO ~ Manager Council: Signed [facility]02-28-2025 Procedure notey [facility] Pulmonary Services/Neurology [address] [place] [address] MR#: [id number] Acct: [id number] Name: PEDRO HILLMAN Rep #:[id number] : 1945 79 From: Tyrell Uriarte DO Referring Dr: Lorie Mart NP DECK SUPERVISOR-C Status: REG CLI Location: PSN Date: Sex: M C PSN 6 Minute Walk Test 6 Minute Walk Test 6 Minute Walk Test: 6 Minute Walk Test PSN:6-Minute Walk Test Start: 10/16/24 13:24 Freq: Status: Active Protocol: RESP.6MINW Document 10/16/24 13:24 [facility] (Rec: 10/16/24 13:34 [facility] [id number]) 6 Minute Walk Test Date Performed 10/16/24 Time Performed 12:30 Height 5 ft 6 in Weight: 174 lb Weight in Pounds 174.[address]: Lorie Mart DECK SUPERVISOR Assistive device Walker used: Pre-test Oxygen Delivery [...] Date Dictated: 10/17/24 1004 Date Transcribed: 10/17/241003 Manager Council: Dr. Tyrell Uriarte, DO Signed [facility]02-06-2025 Evaluation note* Diagnosis Onset Date Resolution Status [...] lobe of right lung chronic 2024 2:10pm [facility] Work Phone: 1([phone]) 721-749502-06-2025 Evaluation note* Diagnosis Onset Date Resolution Status [...] right lung chronic Marlon h 2024 1:24pm [facility] Work Phone: 1(305) 302-116710-20-2023 Procedure [facility] 04-18-2023 Progress note Author Joaquim Suárez [facility] April 18, 2023 7:12pm Note Date/Time April 18, 2023 3: 56pm [facility] [address] [place] [address] Progress Note - Wound Care 04/18/23 1549 MR#: [id number] Acct: [id number] Name: PEDRO HILLMAN Rep #:[id number] : 1945 78 From: Joaquim Smith PM [...] Date Recorded By Document 04/02/23 11:24 PL [id number] 04/02/23 11:25 PL Document 04/18/23 13:24 [facility] [id number] 04/18/23 13:30 BM 04/02/23 04/18/23 11:24 13:24 - Today's Visit Information Type of service Follow-up Visit Follow-up Visit (Physician/STATION SUPERINTENDENT (Physician/STATION SUPERINTENDENT ) ) Arrival Mode Ambulatory,Cane Ambulatory,Cane Transfer [...] Recorded Date Recorded By Document 04/18/23 13:24 [facility] [id number] 04/18/23 13:30 [facility] 04/18/23 13:24 Wound Center Nurse 1 #9 [...] Attached -Granulation Amt Large (67-100%) -Granulation Quality [place] -Slough/Fibrin No -Necrosis Amt None Present (0 [...] Recorded Date Recorded By Document 04/02/23 11:42 [id number] 04/02/23 11:53 Document 04/18/23 14:03 [id number] 04/18/23 14:04 04/02/23 04/18/23 11:42 14:03 Wound [...] Recorded Date Recorded By Document 04/02/23 11:54 [id number] 04/02/23 11:54 Document 04/18/23 14:24 RB [id number] 04/18/23 14:25 RB 04/02/23 04/18/23 11:54 14:24 [...] mellitus with diabetic polyneuropathy QUALIFIERS: Diabetes mellitus terminal block assembler insulin use: with terminal block assembler use Qualified Code(s): E11.42 - Type 2 diabetes mellitus with diabetic polyneuropathy; Z79.4 - alf (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 of insulin PLAN: Educated the [...] Cosigner Signature (if applicable): CC: ~ Signed [facility] Work Phone: 1(195) 905-247408-20-2023 Progress note Author Bonny Glynn [facility] April 07, 2023 10:44pm Note Date/Time April 02, 2023 12 :35pm [facility] [address] [place] [address] Progress Note - Wound Care 04/02/23 1235 MR#: [id number] Acct: [id number] Name: PEDRO HILLMAN Rep #:[id number] : 1945 78 From: Bonny garcia DECK SUPERVISOR DECK SUPERVISOR-C PCP: Dr. Tonio Fajardo, DO Status:REG RCR [...] 11:24 04/02/23 11:24 Charges/Coding Procedures Integumentary 111xxx-113xx: 47409 Mihaela subq tissue 20 sq cm/< Debridement [...] Date Recorded By Document 04/02/23 11:24 KIM [id number] 04/02/23 11:25 KIM 04/02/23 11:24 WC - Today's Visit Information Type of service Follow-up Visit (Physician/STATION SUPERINTENDENT ) Arrival Mode Ambulatory,Cane Transfer Assistance None [...] Date Recorded By Document 04/02/23 11:42 DORA [id number] 04/02/23 11:53 DORA 04/02/23 11:42 Wound Center [...] Date Recorded By Document 04/02/23 11:54 DORA [id number] 04/02/23 11:54 DORA 04/02/23 11:54 Wound Care [...] that the wound center will have a knifeman, will have the patient see him for further evaluation and treatment. Follow up two weeks. Call or come in sooner if develop any questions or concerns. 04/07/23 <Electronically signed by Bonny Glynn NP DECK SUPERVISOR-C> Cosigner Signature (if applicable): CC: ~ Signed [facility] Work Phone: 1(117) 911-104507-17-2023 Progress note Author Bonnyparris Glynn [facility] March 05, 2023 1:06pm Note Date/Time March 05, 2023 12:2 9pm [facility] [address] [place] [address] Progress Note - Wound Care 03/05/23 1226 MR#: [id number] Acct: [id number] Name: PEDRO HILLMAN Rep #:[id number] : 1945 78 From: Bonny garcia NP DECK SUPERVISOR-C PCP: Dr. Tonio Fajardo, DO Status:REG RCR [...] Method Room Air Charges/Coding Procedures Integumentary 111xxx-113xx: 97397 Mihaela subq tissue 20 sq cm/< Debridement [...] Recorded Date Recorded By Document 02/19/23 13:34 [id number] 02/19/23 13:36 Document 03/05/23 11:26 [id number] 03/05/23 11:29 02/19/23 03/05/23 13:34 11:26 - Today's Visit Information Type of service Follow-up Visit Follow-up Visit (Physician/STATION SUPERINTENDENT (Physician/STATION SUPERINTENDENT ) ) Arrival Mode Ambulatory Ambulatory,Cane Accompanied [...] Recorded Date Recorded By Document 02/19/23 13:34 [id number] 02/19/23 13:36 Document 03/05/23 11:26 [id number] 03/05/23 11:29 KW 02/19/23 03/05/23 13:34 11:26 [...] Large (67-100%) Small (1-33%) -Granulation Quality [place] -Slough/Fibrin No -Necrosis Amt Small (1-33%) -Structure [...] Recorded Date Recorded By Document 02/19/23 13:37 [id number] 02/19/23 13:39 Document 03/05/23 11:37 [id number] 03/05/23 11:46 02/19/23 03/05/23 13:37 11:37 Wound [...] Date Recorded By Document 02/19/23 13:43 MW [id number] 02/19/23 13:44 MW Document 03/05/23 11:53 [facility] [id number] 03/05/23 11:55 [facility] 02/19/23 03/05/23 13:43 11:53 Wound Care Center [...] if develop any questions or concerns. 03/05/23 1307 <Electronically signed by Bonny Glynn NP DECK SUPERVISOR-C> Cosigner Signature (if applicable): CC: ~ Signed [facility] Work Phone: 1(510) 682-700007-03-2023 Progress note Author Bonny Glynn [facility] February 19, 2023 2:23pm Note Date/Time February 19, 2023 2:16p m [facility] [address] [place] [address] Progress Note - Wound Care 02/19/23 1412 MR#: [id number] Acct: [id number] Name: PEDRO HILLMAN Rep #:[id number] : 1945 78 From: Bonny Gilils DECK SUPERVISOR DECK SUPERVISOR-C PCP: Dr. Tonio Fajardo, DO Status:REG RCR [...] 13:34 02/19/23 13:34 Charges/Coding Procedures Integumentary 111xxx-113xx: 36049 Mihaela subq tissue 20 sq cm/< Debridement [...] Date Recorded By Document 02/19/23 13:34 DORA [id number] 02/19/23 13:36 DORA 02/19/23 13:34 - Today's Visit Information Type of service Follow-up Visit (Physician/STATION SUPERINTENDENT ) Arrival Mode Ambulatory Patient Requires Transmission-Based [...] 0-10 Numeric Is Patient Pain Free? Yes [facility] Nurse 1 - General Ulcer Measurement Start: 02/19/23 13:34 Freq: Status: Active Protocol: Activity Type Activity Date Activity User E-sign Co-sign Detail Recorded Client Recorded Date Recorded By Document 02/19/23 13:34 DORA [id number] 02/19/23 13:36 02/19/23 13:34 Wound Center Nurse [...] Recorded Date Recorded By Document 02/19/23 13:37 [id number] 02/19/23 13:39 02/19/23 13:37 Wound Center Nurse [...] Date Recorded By Document 02/19/23 13:43 MW [id number] 02/19/23 13:44 MW 02/19/23 13:43 Wound Care [...] 1423 <Electronically signed by Bonny Glynn NP DECK SUPERVISOR-C> Cosigner Signature (if applicable): CC: ~ Signed [facility] Work Phone: 1(912) 601-395106-19-2023 Progress note Author Bonny Glynn [facility] February 05, 2023 2:37pm Note Date/Time February 05, 2023 1:59 pm [facility] [address] [place] [address] Progress Note - Wound Care 02/05/23 1359 MR#: [id number] Acct: [id number] Name: PEDRO HILLMAN Rep #:[id number] : 1945 78 From: Bonny garcia NP DECK SUPERVISOR-C PCP: Dr. Tonio Fajardo, DO Status:REG RCR Location: History of Present Illness Date of Service: 02/05/23 Chief Complaint: right medial foot ulcer History of Wound: This 78-year-old male returns to the wound healing clinic for reoccurrence of a right medial foot ulcer. Wound care has been Moistened Cass covered with [place] SAP dressing. Patient diabetic neuropathic. Patient dealing [...] Method Room Air Charges/Coding Procedures Integumentary 111xxx-113xx: 44193 Mihaela subq tissue 20 sq cm/< Debridement [...] Date Recorded By Document 01/22/23 13:45 DL [id number] 01/22/23 13:48 DL Document 02/05/23 13:10 [facility] [id number] 02/05/23 13:15 [facility] 01/22/23 02/05/23 13:45 13:10 - Today's Visit Information Type of service Follow-up Visit Follow-up Visit (Physician/STATION SUPERINTENDENT (Physician/STATION SUPERINTENDENT ) ) Arrival Mode Ambulatory Ambulatory,Cane Transfer [...] Date Recorded By Document 01/22/23 13:45 DL [id number] 01/22/23 13:48 DL Document 02/05/23 13:10 [facility] [id number] 02/05/23 13:15 [facility] 01/22/23 02/05/23 13:45 13:10 Wound Center Nurse [...] Present (0 Large (67-100%) %) -Granulation Quality [place] -Slough/Fibrin Yes -Necrosis Amt Small (1-33%) Small [...] Date Recorded By Document 01/22/23 14:22 DORA [id number] 01/22/23 14:23 01/22/23 14:22 Wound Center Nurse [...] Date Recorded By Document 01/22/23 14:30 DL [id number] 01/22/23 14:31 DL Document 02/05/23 13:49 [facility] [id number] 02/05/23 13:49 [facility] 01/22/23 02/05/23 14:30 13:49 Wound Care Center [...] 1437 <Electronically signed by Bonny Glynn NP DECK SUPERVISOR-C> Cosigner Signature (if applicable): CC: ~ Signed [facility] Work Phone: 1(145) 561-847906-05-2023 Progress note Author Bonny Glynn [facility] January 22, 2023 3:47pm Note Date/Time January 22, 2023 3:31p m [facility] [address] [place] [address] Progress Note - Wound Care 01/22/23 1529 MR#: [id number] Acct: [id number] Name: PEDRO HILLMAN Rep #:[id number] : 1945 78 From: Bonny garcia DECK SUPERVISOR DECK SUPERVISOR-C PCP: Dr. Tonio Fajardo, DO Status:REG RCR Location: History of Present Illness Date of Service: 01/22/23 Chief Complaint: right medial foot ulcer History of Wound: This 78-year-old male returns to the wound healing clinic for reoccurrence of a right medial foot ulcer. Wound care has been Moistened Cass covered with [place] SAP dressing. Patient diabetic neuropathic. Patient dealing [...] 13:45 01/22/23 13:45 Charges/Coding Procedures Integumentary 111xxx-113xx: 03142 Mihaela subq tissue 20 sq cm/< Debridement [...] Date Recorded By Document 01/22/23 13:45 ORESTES [id number] 01/22/23 13:48 01/22/23 13:45 - Today's Visit Information Type of service Follow-up Visit (Physician/STATION SUPERINTENDENT ) Arrival Mode Ambulatory Transfer Assistance None [...] Date Recorded By Document 01/22/23 13:45 ORESTES [id number] 01/22/23 13:48 01/22/23 13:45 Wound Center Nurse [...] Recorded Date Recorded By Document 01/22/23 14:22 [id number] 01/22/23 14:23 01/22/23 14:22 Wound Center Nurse [...] Date Recorded By Document 01/22/23 14:30 DL [id number] 01/22/23 14:31 DL 01/22/23 14:30 Wound Care [...] 1547 <Electronically signed by Bonny Glynn NP DECK SUPERVISOR-C> Cosigner Signature (if applicable): CC: ~ Signed [facility] Work Phone: 1(551) 435-172805-22-2023 Progress note Author Bonny Glynn [facility] January 08, 2023 2:17pm Note Date/Time January 08, 2023 2:10p m [facility] [address] [place] [address] Progress Note - Wound Care 01/08/23 1407 MR#: [id number] Acct: [id number] Name: PEDRO HILLMAN Rep #:[id number] : 1945 77 From: Bonny garcia NP DECK SUPERVISOR-C PCP: Dr. Tonio Fajardo, DO Status:REG RCR Location: History of Present Illness Date of Service: 01/08/23 Chief Complaint: right medial foot ulcer History of Wound: This 77-year-old male returns to the wound healing clinic for reoccurrence of a right medial foot ulcer. Wound care has been Moistened Cass covered with [place] SAP dressing. Patient diabetic neuropathic. Patient dealing [...] 14:53 01/08/23 13:37 Charges/Coding Procedures Integumentary 111xxx-113xx: 39283 Mihaela subq tissue 20 sq cm/< Debridement [...] Date Recorded By Document 12/18/22 13:20 PL [id number] 12/18/22 13:27 PL Document 12/25/22 14:53 [id number] 12/25/22 14:54 Document 01/08/23 13:37 UT [id number] 01/08/23 13:39 AK 12/18/22 12/25/22 01/08/23 13:20 14:53 13:37 - Today's Visit Information Type of service Follow-up Visit Follow-up Visit Follow-up Visit (Physician/STATION SUPERINTENDENT (Physician/STATION SUPERINTENDENT (Physician/STATION SUPERINTENDENT ) ) ) Arrival Mode Ambulatory Ambulatory [...] Date Recorded By Document 12/18/22 13:20 PL [id number] 12/18/22 13:27 PL Document 12/25/22 14:53 [id number] 12/25/22 14:54 Document 01/08/23 13:37 UT [id number] 01/08/23 13:39 AK 12/18/22 12/25/22 01/08/23 13:20 [...] (34-66%) Small (1-33%) Medium (34-66%) -Granulation Quality [place] Pale -Slough/Fibrin No Yes Yes -Necrosis Amt [...] Recorded Date Recorded By Document 12/18/22 13:51 [id number] 12/18/22 13:53 Document 12/25/22 15:00 [id number] 12/25/22 15:10 Document 01/08/23 14:01 [id number] 01/08/23 14:02 12/18/22 12/25/22 01/08/23 13:51 15:00 [...] Date Recorded By Document 12/18/22 14:07 PL [id number] 12/18/22 14:07 Document 12/25/22 15:20 DL [id number] 12/25/22 15:20 DL 12/18/22 12/25/22 14:07 15:20 [...] 1417 <Electronically signed by Bonny Glynn NP DECK SUPERVISOR-C> Cosigner Signature (if applicable): CC: ~ Signed [facility] Work Phone: 1(204) 969-662805-14-[address] Ochoa [facility] December 31, 2022 12:58am Note Date/Time December 30, 2022 11:08 pm [facility] Medical Records Department [address] [place] [address] Emergency Department Summary 12/30/22 MR#: [id number] Acct: [id number] Name: PEDRO HILLMAN Rep #:[id number] : 1945 77 From: Chris Ochoa MD [...] History Anemia Atherosclerosis of coronary artery of [place] heart without angina pectoris BPH (benign prostatic [...] extremities. Nontender. No edema. No cellulitis. 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 Normal dorsi plantarflexion. Neurologically is awake [...] 83.3 H Lymph % (Auto) 6.4 L [place] % (Auto) 9.1 Eos % (Auto) 0.2 [...] Color Urine Clarity Urine pH Ur Specific [place] Urine Protein Urine Glucose (UA) Urine Ketones Urine Occult Blood Urine Nitrite Urine Bilirubin Urine Urobilinogen Ur Leukocyte Esterase Urine RBC Urine WBC Ur Squamous Epith Cells Urine Bacteria Urine Mucus 12/30/22 12/30/22 22:50 23:59 WBC RBC Hgb Hct MCV MCH MCHC RDW Std Deviation RDW Coeff of Reggie Plt Count MPV Immature Gran % (Auto) Neut % (Auto) Lymph % (Auto) [place] % (Auto) Eos % (Auto) Baso % [...] Clarity Clear Urine pH 7.0 Ur Specific [place] 1.005 Urine Protein 100 H Urine Glucose [...] 0:41 EDT Reading Location ID and State: [facility] / [place] Tel , Service support , Chest x-ray, [...] your Primary Care Provider. Call [facility] ([phone]) or report to the closest Emergency Room. Call 911 if necessary. 12/31/22 0058 <Electronically signed by Chris Ochoa MD> Cosigner Signature (if applicable): CC: Dr. Tonio Fajardo, DO ~ Signed [facility] Work Phone: 1(703) [phone] Progress note Author Bonny Glynn [facility] December 25, 2022 3:36pm Note Date/Time December 25, 2022 3:36pm [facility] [address] [place] [address] Progress Note - Wound Care 12/25/22 1531 MR#: [id number] Acct: [id number] Name: PEDRO HILLMAN Rep #:[id number] : 1945 77 From: Bonny garcia DECK SUPERVISOR DECK SUPERVISOR-C PCP: Dr. Tonio Fajardo, Status:REG RCR Location: History of Present Illness Date of Service: 12/25/22 Chief Complaint: right medial foot ulcer History of Wound: This 77-year-old male returns to the wound healing clinic for reoccurrence of a right medial foot ulcer. Wound care has been Moistened Cass covered with [place] SAP dressing. Patient diabetic neuropathic. Patient dealing [...] 14:53 12/25/22 14:53 Charges/Coding Procedures Integumentary 111xxx-113xx: 71622 Mihaela subq tissue 20 sq cm/< Debridement [...] Recorded Date Recorded By Document 12/18/22 13:20 IKM [id number] 12/18/22 13:27 Document 12/25/22 14:53 [id number] 12/25/22 14:54 12/18/22 12/25/22 13:20 14:53 - Today's Visit Information Type of service Follow-up Visit Follow-up Visit (Physician/STATION SUPERINTENDENT (Physician/STATION SUPERINTENDENT ) ) Arrival Mode Ambulatory Ambulatory Transfer [...] Date Recorded By Document 12/18/22 13:20 KIM [id number] 12/18/22 13:27 Document 12/25/22 14:53 [id number] 12/25/22 14:54 12/18/22 12/25/22 13:20 14:53 Wound [...] Amt Medium (34-66%) Small (1-33%) -Granulation Quality [place] -Slough/Fibrin No Yes -Necrosis Amt Medium (34-66%) [...] Recorded Date Recorded By Document 12/18/22 13:51 [id number] 12/18/22 13:53 Document 12/25/22 15:00 [id number] 12/25/22 15:10 12/18/22 12/25/22 13:51 15:00 Wound [...] Date Recorded By Document 12/18/22 14:07 PL [id number] 12/18/22 14:07 PL Document 12/25/22 15:20 DL [id number] 12/25/22 15:20 DL 12/18/22 12/25/22 14:07 15:20 [...] 1536 <Electronically signed by Bonny Glynn NP DECK SUPERVISOR-C> Cosigner Signature (if applicable): CC: ~ Signed [facility] Work Phone: 1(257) 145-537005-01-2023 Progress note Author Bonnyparris Glynn [facility] December 18, 2022 2:23pm Note Date/Time December 18, 2022 2:23pm [facility] [address] [address] Progress Note - Wound Care 12/18/22 1419 MR#: [id number] Acct: [id number] Name: PEDRO HILLMAN Rep #:[id number] : 1945 77 From: Bonny garcia NP DECK SUPERVISOR-C PCP: Dr. Tonio Fajardo, DO Status:REG RCR Location: History of Present Illness Date of Service: 12/18/22 Chief Complaint: right medial foot ulcer History of Wound: This 77-year-old male returns to the wound healing clinic for reoccurrence of a right medial foot ulcer. Wound care has been Moistened Cass covered with [place] SAP dressing. Patient diabetic neuropathic. Patient dealing [...] 13:20 12/18/22 13:20 Charges/Coding Procedures Integumentary 111xxx-113xx: 89229 Mihaela subq tissue 20 sq cm/< Debridement [...] Date Recorded By Document 12/18/22 13:20 KIM [id number] 12/18/22 13:27 KIM 12/18/22 13:20 - Today's Visit Information Type of service Follow-up Visit (Physician/STATION SUPERINTENDENT ) Arrival Mode Ambulatory Transfer Assistance None [...] Date Recorded By Document 12/18/22 13:20 PL [id number] 12/18/22 13:27 PL 12/18/22 13:20 Wound Center [...] Serosanguineous -Granulation Amt Medium (34-66%) -Granulation Quality [place] -Slough/Fibrin No -Necrosis Amt Medium (34-66%) -Necrotic [...] Date Recorded By Document 12/18/22 13:51 DORA [id number] 12/18/22 13:53 DORA 12/18/22 13:51 Wound Center [...] Date Recorded By Document 12/18/22 14:07 PL [id number] 12/18/22 14:07 PL 12/18/22 14:07 Wound Care [...] 1423 <Electronically signed by Bonny Glynn NP DECK SUPERVISOR-C> Cosigner Signature (if applicable): CC: ~ Signed [facility] Work Phone: [phone]) [phone] Progress note Author Bonnyparris Glynn [facility] December 14, 2022 2:56pm Note Date/Time December 11, 2022 3:2 7pm [facility] [address] [address] Progress Note - Wound Care 12/11/22 1527 MR#: [id number] Acct: [id number] Name: PEDRO HILLMAN Rep #:[id number] : 1945 77 From: Bonny garcia NP DECK SUPERVISOR-C PCP: Dr. Tonio Fajardo, DO Status:REG RCR Location: History of Present Illness Date of Service: 12/11/22 Chief Complaint: right medial foot ulcer History of Wound: This 77-year-old male returns to the wound healing clinic for reoccurrence of a right medial foot ulcer. Wound care has been Moistened Cass covered with [place] SAP dressing. Patient diabetic neuropathic. Patient dealing [...] Method Room Air Charges/Coding Procedures Integumentary 111xxx-113xx: 06705 Mihaela subq tissue 20 sq cm/< Debridement [...] Date Recorded By Document 11/20/22 14:43 DL [id number] 11/20/22 14:49 DL Document 11/27/22 14:25 [facility] [id number] 11/27/22 14:27 [facility] Document 12/06/22 11:35 DL [id number] 12/06/22 11:39 DL Document 12/11/22 13:12 [facility] [id number] 12/11/22 13:21 [facility] 11/20/22 11/27/22 12/06/22 14:43 14:25 11:35 - Today's Visit Information Type of service Follow-up Visit Follow-up Visit (Physician/STATION SUPERINTENDENT (Physician/STATION SUPERINTENDENT ) ) Arrival Mode Ambulatory,Cane Ambulatory Transfer [...] Visit Information Type of service Follow-up Visit (Physician/STATION SUPERINTENDENT ) Arrival Mode Ambulatory,Cane Transfer Assistance None [...] Date Recorded By Document 11/20/22 14:43 DL [id number] 11/20/22 14:49 DL Document 11/27/22 14:25 [facility] [id number] 11/27/22 14:27 BMF Document 12/06/22 11:35 DL [id number] 12/06/22 11:39 DL Document 12/11/22 13:12 [facility] [id number] 12/11/22 13:21 BMF 11/20/22 11/27/22 12/06/22 14:43 [...] Amt Small (1-33%) Small (1-33%) -Granulation Quality [place] Pale -Slough/Fibrin -Necrosis Amt Small (1-33%) Small [...] Recorded Date Recorded By Document 04/03/23 15:00 [id number] 11/20/22 15:09 JF Edit Result 11/20/22 15:00 JF (1) [id number] 11/20/22 15:18 JF Edit Result 11/20/22 15:00 JF (2) [id number] 11/20/22 15:20 Document 11/27/22 14:50 [id number] 11/27/22 15:02 Document 12/06/22 11:46 [id number] 12/06/22 11:57 Document 12/11/22 13:30 [id number] 12/11/22 13:33 (1) #9 Right Inferior Hallux [...] => 08/20/27 - Product Lot Number => [id number] - Percent Used => 100 - Lot number of Saline Used => [id number] 11/20/22 11/27/22 12/06/22 15:00 14:50 11:46 Wound [...] Date 08/20/27 08/20/27 09/20/27 -Product Lot Number [id number] [id number] -Percent Used 100 100 100 -Lot number of Saline Used [id number] -Bleeding Controlled with Pressure Pressure Pressure -Treatment [...] Date Recorded By Document 11/20/22 15:35 DL [id number] 11/20/22 15:36 Document 11/27/22 15:02 [id number] 11/27/22 15:03 Document 12/06/22 11:57 [id number] 12/06/22 11:58 Document 12/11/22 13:57 DL [id number] 12/11/22 13:58 DL 11/20/22 11/27/22 12/06/22 15:35 [...] 1456 <Electronically signed by Bonny Glynn NP DECK SUPERVISOR-C> Cosigner Signature (if applicable): CC: ~ Signed [facility] Work Phone: 1([phone]) 254-500704-19-2023 Progress note Author Bonny Glynn [facility] December 06, 2022 12:09pm Note Date/Time December 06, 2022 12: 09pm [facility] [address] [place] [address] Progress Note - Wound Care 12/06/22 1205 MR#: [id number] Acct: [id number] Name: PEDRO HILLMAN Rep #:[id number] : 1945 77 From: Bonny garcia NP DECK SUPERVISOR-C PCP: Dr. Tonio Fajardo, DO Status:REG RCR Location: History of Present Illness Date of Service: 12/06/22 Chief Complaint: right medial foot ulcer History of Wound: This 77-year-old male returns to the wound healing clinic for reoccurrence of a right medial foot ulcer. Wound care has been Moistened Cass covered with [place] SAP dressing. Patient diabetic neuropathic. Patient dealing [...] 11:35 12/06/22 11:35 Charges/Coding Procedures Integumentary 150xxx-152xx: 38773 Skin sub graft face/nk/hf/g Debridement Note Debridement [...] Start: 11/20/22 14:43 Freq: Status: Active Protocol: [employer] Activity Type Activity Date Activity User E-sign Co-sign Detail Recorded Client Recorded Date Recorded By Document 11/20/22 14:43 DL [id number] 11/20/22 14:49 DL Document 11/27/22 14:25 [facility] [id number] 11/27/22 14:27 BMF Document 12/06/22 11:35 DL [id number] 12/06/22 11:39 DL 11/20/22 11/27/22 12/06/22 14:43 14:25 11:35 - Today's Visit Information Type of service Follow-up Visit Follow-up Visit (Physician/STATION SUPERINTENDENT (Physician/STATION SUPERINTENDENT ) ) Arrival Mode Ambulatory,Cane Ambulatory Transfer [...] Date Recorded By Document 11/20/22 14:43 DL [id number] 11/20/22 14:49 DL Document 11/27/22 14:25 [facility] [id number] 11/27/22 14:27 [facility] Document 12/06/22 11:35 DL [id number] 12/06/22 11:39 DL 11/20/22 11/27/22 12/06/22 14:43 [...] Amt Small (1-33%) Small (1-33%) -Granulation Quality [place] Pale -Necrosis Amt Small (1-33%) Small (1-33%) [...] Recorded Date Recorded By Document 11/20/22 15:00 [id number] 11/20/22 15:09 JF Edit Result 11/20/22 15:00 JF (1) [id number] 11/20/22 15:18 JF Edit Result 11/20/22 15:00 JF (2) [id number] 11/20/22 15:20 JF Document 11/27/22 14:50 JF [id number] 11/27/22 15:02 JF Document 12/06/22 11:46 [id number] 12/06/22 11:57 JF (1) #9 Right Inferior [...] => 08/20/27 - Product Lot Number => [id number] - Percent Used => 100 - Lot number of Saline Used => [id number] 11/20/22 11/27/22 12/06/22 15:00 14:50 11:46 Wound [...] Date 08/20/27 08/20/27 09/20/27 -Product Lot Number [id number] 015 -Percent Used 100 100 100 -Lot number of Saline Used [id number] -Bleeding Controlled with Pressure Pressure Pressure -Treatment [...] Date Recorded By Document 11/20/22 15:35 DL [id number] 11/20/22 15:36 DL Document 11/27/22 15:02 JF [id number] 11/27/22 15:03 JF Document 12/06/22 11:57 [id number] 12/06/22 11:58 11/20/22 11/27/22 12/06/22 15:35 15:02 [...] if develop any questions or concerns. 12/06/22 5955 <Electronically signed by Bonny lGynn NP DECK SUPERVISOR-C> Cosigner Signature (if applicable): CC: ~ Signed [facility] Work Phone: 1(913) 225-926604-11-2023 Progress note Author Bonny Glynn [facility] November 28, 2022 5:24pm Note Date/Time November 27, 2022 3:1 4pm [facility] [address] [place] [address] Progress Note - Wound Care 11/27/22 1513 MR#: [id number] Acct: [id number] Name: PEDRO HILLMAN Nora Rep #:[id number] : 1945 77 From: Bonny garcia DECK SUPERVISOR DECK SUPERVISOR-C PCP: Dr. Tonio Fajardo, DO Status:REG RCR Location: History of Present Illness Date of Service: 11/27/22 Chief Complaint: right medial foot ulcer History of Wound: This 77-year-old male returns to the wound healing clinic for reoccurrence of a right medial foot ulcer. Wound care has been Moistened Cass covered with [place] SAP dressing. Patient diabetic neuropathic. Patient dealing [...] 14:43 11/27/22 14:25 Charges/Coding Procedures Integumentary 150xxx-152xx: 97207 Skin sub graft face/nk/hf/g Debridement Note Debridement [...] Date Recorded By Document 11/20/22 14:43 DL [id number] 11/20/22 14:49 DL Document 11/27/22 14:25 BMF [id number] 11/27/22 14:27 [facility] 11/20/22 11/27/22 14:43 14:25 - Today's Visit Information Type of service Follow-up Visit Follow-up Visit (Physician/STATION SUPERINTENDENT (Physician/STATION SUPERINTENDENT ) ) Arrival Mode Ambulatory,Cane Ambulatory Transfer [...] Date Recorded By Document 11/20/22 14:43 DL [id number] 11/20/22 14:49 DL Document 11/27/22 14:25 [facility] [id number] 11/27/22 14:27 [facility] 11/20/22 11/27/22 14:43 14:25 Wound Center Nurse [...] Thickened -Granulation Amt Small (1-33%) -Granulation Quality [place] -Necrosis Amt Small (1-33%) -Necrotic Tissue Type [...] Recorded Date Recorded By Document 11/20/22 15:00 [id number] 11/20/22 15:09 Edit Result 11/20/22 15:00 JF (1) [id number] 11/20/22 15:18 JF Edit Result 11/20/22 15:00 JF (2) [id number] 11/20/22 15:20 JF Document 11/27/22 14:50 [id number] 11/27/22 15:02 JF (1) #9 Right Inferior [...] => 08/20/27 - Product Lot Number => [id number] - Percent Used => 100 - Lot number of Saline Used => [id number] 11/20/22 11/27/22 15:00 14:50 Wound Center Nurse [...] -Expiration Date 08/20/27 08/20/27 -Product Lot Number [id number] -Percent Used 100 100 -Lot number of Saline Used [id number] -Bleeding Controlled with Pressure Pressure -Treatment Response [...] Date Recorded By Document 11/20/22 15:35 DL [id number] 11/20/22 15:36 DL Document 11/27/22 15:02 JF [id number] 11/27/22 15:03 JF 11/20/22 11/27/22 15:35 15:02 [...] place. Compression - Single tubigrip Off-loading - Suamn shoe has been re-adjusted at the foot [...] 1724 <Electronically signed by Bonny Glynn NP DECK SUPERVISOR-C> Cosigner Signature (if applicable): CC: ~ Signed [facility] Work Phone: 1(160) 789-249104-10-2023 Progress note Author Bonny Glynn [facility] November 26, 2022 10:29pm Note Date/Time November 20, 2022 4:18 pm [facility] [address] [place] [address] Progress Note - Wound Care 11/20/22 1618 MR#: [id number] Acct: [id number] Name: PEDRO HILLMAN Rep #:[id number] : 1945 77 From: Bonny garcia NP DECK SUPERVISOR-C PCP: Dr. Tonio Fajardo, DO Status:REG RCR Location: History of Present Illness Date of Service: 11/20/22 Chief Complaint: right medial foot ulcer History of Wound: This 77-year-old male returns to the wound healing clinic for reoccurrence of a right medial foot ulcer. Wound care has been Moistened Cass covered with [place] SAP dressing. Patient diabetic neuropathic. Patient dealing [...] 14:43 11/20/22 14:43 Charges/Coding Procedures Integumentary 150xxx-152xx: 68513 Skin sub graft face/nk/hf/g Debridement Note Debridement [...] Date Recorded By Document 11/20/22 14:43 DL [id number] 11/20/22 14:49 DL 11/20/22 14:43 - Today's Visit Information Type of service Follow-up Visit (Physician/STATION SUPERINTENDENT ) Arrival Mode Ambulatory,Cane Transfer Assistance None [...] Date Recorded By Document 11/20/22 14:43 DL [id number] 11/20/22 14:49 DL 11/20/22 14:43 Wound Center Nurse 1 #9 Right Inferior Hallux -Current Size (cm) - Length 0.2 -Current Size (cm) - Width 0.3 -Current Size (cm) - Depth 0.2 -Total Square Cm 0.06 -Photo Taken No -Exudate Amt Small -Exudate Type Serosanguineous -Wound Margin Thickened -Granulation Amt Small (1-33%) -Granulation Quality [place] -Necrosis Amt Small (1-33%) -Necrotic Tissue Type [...] Date Recorded By Document 11/20/22 15:00 DORA [id number] 11/20/22 15:09 JF Edit Result 11/20/22 15:00 JF (1) [id number] 11/20/22 15:18 JF Edit Result 11/20/22 15:00 JF (2) [id number] 11/20/22 15:20 JF (1) #9 Right Inferior [...] => 08/20/27 - Product Lot Number => [id number] - Percent Used => 100 - Lot number of Saline Used => [id number] 11/20/22 15:00 Wound Center Nurse 2 -Time [...] Disc -Expiration Date 08/20/27 -Product Lot Number [id number] -Percent Used 100 -Lot number of Saline Used [id number] -Bleeding Controlled with Pressure -Treatment Response Procedure [...] Date Recorded By Document 11/20/22 15:35 DL [id number] 11/20/22 15:36 DL 11/20/22 15:35 Wound Care [...] 11/26/222228 <Electronically signed by Bonny Glynn NP DECK SUPERVISOR-C> Cosigner Signature (if applicable): CC: ~ Signed [facility] Work Phone: 1(647) 539-248402-21-2023 Progress note Author Bonnyparris Glynn [facility] October 10, 2022 3:29pm Note Date/Time October 09, 2022 4:10pm [facility] [address] [place] [id number] Progress Note - Wound Care 10/09/22 1609 MR#: [id number] Acct: [id number] Name: PEDRO HILLMAN Rep #:[id number] : 1945 77 From: Bonny garcia NP DECK SUPERVISOR-C PCP: Dr. Tonio Fajardo, DO Status:REG RCR Location: History of Present Illness Date of Service: 10/09/22 Chief Complaint: right foot ulcer History of Wound: This 77-year-old male returns to the wound healing clinic for reoccurrence of a right medial foot ulcer. Wound care has been Moistened Cass covered with [place] SAP dressing. Patient diabetic neuropathic. Patient dealing [...] Method Room Air Charges/Coding Procedures Integumentary 150xxx-152xx: 19156 Skin sub graft face/nk/hf/g Debridement Note Debridement [...] Date Recorded By Document 09/25/22 14:25 BMF [id number] 09/25/22 14:32 BMF Document 10/02/22 13:28 ML [id number] 10/02/22 13:32 ML Document 10/09/22 12:59 DL [id number] 10/09/22 13:04 DL 09/25/22 10/02/22 10/09/22 14:25 13:28 12:59 - Today's Visit Information Type of service Follow-up Visit Follow-up Visit Follow-up Visit (Physician/STATION SUPERINTENDENT (Physician/STATION SUPERINTENDENT (Physician/STATION SUPERINTENDENT ) ) ) Arrival Mode Ambulatory,Cane Cane [...] Recorded Date Recorded By Document 09/25/22 14:25 [facility] [id number] 02/06/23 14:32 BMF Document 10/02/22 13:28 ML [id number] 10/02/22 13:32 ML Document 10/09/22 12:59 DL [id number] 10/09/22 13:04 DL 09/25/22 10/02/22 10/09/22 14:25 [...] (0 Large (67-100%) %) -Granulation Quality [place] -Slough/Fibrin Yes Yes -Necrosis Amt Small (1-33%) [...] Recorded Date Recorded By Document 09/25/22 14:42 [id number] 09/25/22 14:51 Document 10/02/22 14:14 [id number] 10/02/22 14:17 Document 10/09/22 13:17 [id number] 10/09/22 13:26 09/25/22 10/02/22 10/09/22 14:42 14:14 [...] Date 06/20/27 05/20/27 06/20/27 -Product Lot Number [id number] -Percent Used 100 100 100 -Lot number of Saline Used [id number] -Bleeding Controlled with Pressure Pressure Pressure -Treatment [...] Recorded Date Recorded By Document 09/25/22 14:52 [id number] 09/25/22 14:53 Document 10/02/22 14:18 [id number] 10/02/22 14:19 09/25/22 10/02/22 14:52 14:18 Wound [...] positive for Staphylococcus epidermidis and GNR lactose rn burn. I spoke with his PCP, Dr Fajardo, who was made aware of the results and he said he would treat him from these results. Follow up one week. 10/10/22 1529 <Electronically signed by Bonny Glynn NP DECK SUPERVISOR-C> Cosigner Signature (if applicable): CC: ~ Signed [facility] Work Phone: 1(357) 161-903302-14-2023 Progress note Author Bonny Glynn [facility] October 03, 2022 4:51pm Note Date/Time September 26, 2022 1 :17pm [facility] [address] [place] [address] Progress Note - Wound Care 09/25/22 1501 MR#: [id number] Acct: [id number] Name: PEDRO HILLMAN Rep #:[id number] : 1945 77 From: Bonny garcia NP DECK SUPERVISOR-C PCP: Dr. Tonio Fajardo, DO Status:REG RCR Location: ADDENDUM by DECK SUPERVISORAlexC Bonny Glynn on 10/03/22 at 1651 [place]endum [place] [address] Procedures Integumentary 150xxx-152xx: 92216 Skin sub graft face/nk/hf/g 10/03/22 1651<Electronically signed by Bonny Glynn NP DECK SUPERVISOR-C> Cosigner Signature (if applicable): cc: ~* Signed History of Present Illness Date of Service: 09/25/22 Chief Complaint: right foot ulcer History of Wound: This 77-year-old male returns to the wound healing clinic for reoccurrence of a right medial foot ulcer. Wound care has been Moistened Cass covered with [place] SAP dressing. Patient diabetic neuropathic. Patient dealing [...] Method Room Air Charges/Coding Procedures Integumentary 150xxx-152xx: 76633 Skin sub graft trnk/arm/leg Debridement Note Debridement [...] Recorded Date Recorded By Document 09/25/22 14:25 [facility] [id number] 09/25/22 14:32 [facility] 09/25/22 14:25 - Today's Visit Information Type of service Follow-up Visit (Physician/STATION SUPERINTENDENT ) Arrival Mode Ambulatory,Cane Transfer Assistance None [...] Recorded Date Recorded By Document 09/25/22 14:25 [facility] [id number] 09/25/22 14:32 [facility] 09/25/22 14:25 Wound Center Nurse 1 #9 [...] Recorded Date Recorded By Document 09/25/22 14:42 [id number] 09/25/22 14:51 09/25/22 14:42 Wound Center Nurse [...] Disc -Expiration Date 06/20/27 -Product Lot Number [id number] -Percent Used 100 -Lot number of Saline Used [id number] -Bleeding Controlled with Pressure -Treatment Response Procedure [...] Recorded Date Recorded By Document 09/25/22 14:52 [id number] 09/25/22 14:53 09/25/22 14:52 Wound Care Center [...] 1317 <Electronically signed by Bonny Glynn NP DECK SUPERVISOR-C> Cosigner Signature (if applicable): CC: ~ Signed [facility] Work Phone: 1(212) 193-344602-14-2023 Progress note Author Bonny Glynn [facility] October 03, 2022 4:49pm Note Date/Time October 02, 2022 2:57pm [facility] [address] [place] [address] Progress Note - Wound Care 10/02/22 5961 MR#: [id number] Acct: [id number] Name: PEDRO HILLMAN Rep #:[id number] : 1945 77 From: Bonny garcia DECK SUPERVISOR DECK SUPERVISOR-C PCP: Dr. Tonio Fajardo, DO Status:REG RCR Location: History of Present Illness Date of Service: 10/02/22 Chief Complaint: right foot ulcer History of Wound: This 77-year-old male returns to the wound healing clinic for reoccurrence of a right medial foot ulcer. Wound care has been Moistened Cass covered with [place] SAP dressing. Patient diabetic neuropathic. Patient dealing [...] Charges/Coding Visit Charges Office Visits / Consults: 17043 OV L3 Est (25 modifier) Procedures Integumentary 150xxx-152xx: 96160 Skin sub graft face/nk/hf/g Physical Exam Const [...] Recorded Date Recorded By Document 09/25/22 14:25 [facility] [id number] 09/25/22 14:32 [facility] Document 10/02/22 13:28 ML [id number] 10/02/22 13:32 ML 09/25/22 10/02/22 14:25 13:28 - Today's Visit Information Type of service Follow-up Visit Follow-up Visit (Physician/STATION SUPERINTENDENT (Physician/STATION SUPERINTENDENT ) ) Arrival Mode Ambulatory,Cane Cane Transfer [...] Recorded Date Recorded By Document 09/25/22 14:25 [facility] [id number] 09/25/22 14:32 [facility] Document 10/02/22 13:28 ML [id number] 10/02/22 13:32 ML 09/25/22 10/02/22 14:25 13:28 [...] Recorded Date Recorded By Document 09/25/22 14:42 [id number] 09/25/22 14:51 Document 10/02/22 14:14 [id number] 10/02/22 14:17 09/25/22 10/02/22 14:42 14:14 Wound [...] -Expiration Date 06/20/27 05/20/27 -Product Lot Number [id number] -Percent Used 100 100 -Lot number of Saline Used [id number] -Bleeding Controlled with Pressure Pressure -Treatment Response [...] Recorded Date Recorded By Document 09/25/22 14:52 [id number] 09/25/22 14:53 Document 10/02/22 14:18 [id number] 10/02/22 14:19 09/25/22 10/02/22 14:52 14:18 Wound [...] they should go to the ED. 10/03/22 1004 <Electronically signed by Bonny Glynn NP DECK SUPERVISOR-C> Cosigner Signature (if applicable): CC: ~ Signed [facility] Work Phone: 1(305) 744-784601-10-2023 Progress note Author Bonny Glynn [facility] August 29, 2022 3:36pm Note Date/Time August 29, 2022 2 :32pm [facility] [address] [place] [address] Progress Note - Wound Care 08/29/22 1429 MR#: [id number] Acct: [id number] Name: PEDRO HILLMAN Rep #:[id number] : 1945 77 From: Bonny garcia NP DECK SUPERVISOR-C PCP: Dr. Tonio Fajardo, DO Status:REG RCR Location: History of Present Illness Date of Service: 08/29/22 Chief Complaint: right foot ulcer History of Wound: This 77-year-old male returns to the wound healing clinic for reoccurrence of a right medial foot ulcer. Wound care has been Moistened Cass covered with [place] SAP dressing. Patient diabetic neuropathic. Patient dealing [...] Method Room Air Charges/Coding Procedures Integumentary 111xxx-113xx: 44010 Mihaela subq tissue 20 sq cm/< Debridement [...] Recorded Date Recorded By Document 08/29/22 13:17 [facility] [id number] 08/29/22 13:22 [facility] 08/29/22 13:17 WC - Today's Visit Information Type of service Follow-up Visit (Physician/STATION SUPERINTENDENT ) Arrival Mode Ambulatory,Cane Transfer Assistance None [...] Recorded Date Recorded By Document 08/29/22 13:17 [facility] [id number] 08/29/22 13:22 [facility] 08/29/22 13:17 Wound Center Nurse 1 #9 [...] Recorded Date Recorded By Document 08/29/22 13:35 [id number] 08/29/22 13:40 08/29/22 13:35 Wound Center Nurse [...] Date Recorded By Document 08/29/22 13:47 DL [id number] 08/29/22 13:47 DL 08/29/22 13:47 Wound Care [...] Silvercel as the primary dressing covered with [place] SAP (secondarydressing) daily after washing foot with [...] 1536 <Electronically signed by Bonny Glynn NP DECK SUPERVISOR-C> Cosigner Signature (if applicable): CC: ~ Signed [facility] Work Phone: 1(879) 409-517012-16-2022 Miscellaneous Notes* Telephone Encounter - Liseth Ortiz [...] advise. Steven Rodriguez APRN.CNP documented in this encounterProm[facility]08-20-2022 Miscellaneous Notes* Telephone Encounter - Jenny Mock - 04/08/2022 2:56 PM EDT Notified pt of results, daughter will call to get information on restrictions. Jenny Mock * Telephone Encounter - Jenny Mock - 04/08/2022 9:18 AM EDT left message on machine to give call back, different number from pharmacy. [phone]. Jenny Allie * Telephone Encounter - Jenny Mock - 04/07/2022 5:48 PM EDT Unable to reach patient. Mailbox full/Mailbox not set up/ Number incorrect. Please try again later. Jenny Mock * Telephone Encounter - Sigrid Monroe LPN - 04/06/2022 6:48 PM EDT Still unable to reach patient and call or contact centre manager is spouse with same number.Sigrid Monroe [...] ER if severe. documented in this encounterPromedica Defiance [facility]08-17-2022 NoteHNO ID: [id number] Author: Steven Rodriguez APRN.STATION SUPERINTENDENT Service: ? Author Type: Nurse Practitioner Type: [...] WITH FLUA+B, ROUTINE Steven Rodriguez APRN.[facility]08-17-2022 NoteHNO ID: [id number] Author: RT Jose Eduardo(R) Service: Nuclear Medicine [...] Yuliana Olivera, RT(R) April 05, 2022 1:55 [facility]08-17-2022 Influenza virus A and B RNA and SARS-CoV-2 (COVID-19) N gene panel BRYAN+probe (Resp)COVID 19 RESULT: SARS-CoV-2 (Agent of COVID-19) Detected by RT-PCR or equivalent method. anatoly PQRA-YdU-9_[employer] (YASMEEN)_EUA This test was developed and its performance characteristics determined by [facility] [place]. This test has been authorized by FDA under an Emergency Use Authorization (EUA). This test has been validated in accordance with the FDA's Guidance Document Policy for DiagnosticsTesting in Laboratories Certified to Perform High Complexity Testing under CLIA prior to Emergency use Authorization for Coronavirus Disease 2019 during the Public Health Emergency issued on October 18, 2019. Test performed by [facility], [facility] [place], [address] [place] [address]. INFLUENZA A PCR: Negative for Influenza A by RT-PCR INFLUENZA B PCR: Negative for Influenza B by RT-PCRTrinity Health System East CampusComment on above: Performed By: #### 11246-6 #### [facility] CLIA [id number] [address] [place] [address] [place] [id number] Miscellaneous Notes* Telephone Encounter - Steven Rodriguez APRN.CNP - 04/05/2022 2:58 PM EDT Radiology report faxed to patient's PCP Dr. Tonio Fajardo at [phone]. Confirmation of fax received. Patient was advised to call Dr. Fajardo today for a follow up appointment. Steven Rodriguez APRN.CNP documented in this encounterPromedica Defiance [facility]08-17-2022 Instructions* Patient Instructions* Steven Rodriguez APRN.CNP [...] ROUTINE Steven Rodriguez APRN.CNP documented in this encounterPromedica Def[facility]08-17-2022 History of Present illness Narrative* Steven [...] - COVID WITH FLUA+B, ROUTINE Steven Rodriguez APRN.STATION SUPERINTENDENT documented in this encounterPromedica Defiance [facility] Hospital08-17-2022 History of Present illness Narrative* Yuliana [...] 2022 1:55 PM documented in this encounterPromedica Defiance Regional HospitalConsult note Author Mala Sterling [facility] Note Date/Time March 09, 2025 2:58 pm [facility] Medical Records Department [address] [place] [address] Counseling Note - Pharmacy 03/09/25 1457 MR#: [id number] Acct: [id number] Name: PEDRO HILLMAN Rep #:[id number] : 1945 80 From: Mala Sterling PCP: Dr. Tonio Fajardo, DO Status:ADM IN Y Location: [place] [address] Pharmacy [facility] Counseling Pharmacy Service has performed discharge medication [...] Signature (if applicable): Date CC: ~ Signed [facility] Work Phone: Discharge summary Author Casper Iniguez [facility] Note Date/Time April 19, 2025 10 :43am [facility] Medical Records Department [address] [place] [address] Emergency Department Summary 04/19/25 MR#: [id number] Acct: [id number] Name: PEDRO HILLMAN Nora Rep #:[id number] : 1945 80 From: Casper Pyle PCP: Dr. Tonio Fajardo, DO Status:REG ER Location: ED HPI History of Present Illness Chief Complaint: [facility] History Presence of cardiac pacemaker Peripheral arterial disease Other persistent atrial fibrillation New onset atrial flutter COVID Wears hearing aid in both ears Former smoker Coronary artery disease Peripheral vascular occlusive disease BPH (benign prostatic hyperplasia) Chronic kidney disease, stage 3 Atherosclerosis of coronary artery of [place] heart without angina pectoris Hyperlipidemia Lower extremity [...] hr (Mucinex) #20 tabs OXYGEN - Supplemental ([facility] 04/09/25 Unknown History INFORMATIONAL USE ONLY) [...] Notes his pacemaker was placed recently at [facility]. Denies any pain over pacemaker site. REVIEW [...] MEDICAL DECISION MAKING: Chief Complaint: please see [facility] External records reviewed: Pacemaker was placed here with [facility] on 04/09/[address] Hsu Reviewed prior [...] - Noted patient safe to stay at [facility]. States he should be able to evaluate [...] to PCU This note was generated with [place] dictation software. It may contain incorrectwords, spelling, [...] 75.0 H Lymph % (Auto) 9.1 L [place] % (Auto) 11.3 H Eos % (Auto) [...] CHF compared to x-ray 04/12/2025. Reading Location: [facility] Discharge Plan Triage Chief Complaint: Syncope ED [...] Qty: 60 0RF (DME) OXYGEN - Supplemental ([facility] INFORMATIONAL USE ONLY) Gas See Rx [...] DO [Primary Care Provider] - Print Language: [place]se What to do if you have Problems For any increased pain, shortness of breath, bleeding, nausea or vomiting, chestpain, or any unexpected problems, contact your Primary Care Provider. Call [facility] ([phone]) or report to the closest Emergency Room. Call 911 if necessary. 04/19/25 1043 <Electronically signed by Casper Iniguez DO> Cosigner Signature (if applicable): CC: Dr. 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 Venous insufficiency chronic Ulcer of right foot with fat layer exposed resolved [facility] Work Phone: Evaluation note* Diagnosis Onset [...] right foot with fat layer exposed resolved [facility] Work Phone: evaluation note* Diagnosis Onset Date [...] right foot with fat layer exposed resolved [facility] Work Phone: Evaluation note* Diagnosis Onset [...] 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 [facility] Work Phone: Evaluation note* Diagnosis Onset [...] right foot with fat layer exposed resolved [facility] Work Phone: Evaluation note* Diagnosis Burning with urination- Primary Dysuria Acute cough Suspected COVID-19 virus infection documented in this encounter [facility]* Diagnosis Onset Date Resolution Status [...] acute Nicotine dependence, cigarettes, in remission acute [facility] Work Phone: Evaluation note* Diagnosis Onset [...] right foot with fat layer exposed resolved [facility] Work Phone: Evaluation note* Diagnosis Onset [...] right foot with fat layer exposed resolved [facility] Work Phone: Evaluation note* Diagnosis Onset [...] of upper lobe of right lung acute [facility] Work Phone: Evaluation note* Diagnosis Onset [...] murlai of upper lobe of right lung acute [facility] Work Phone: Evaluation note* Diagnosis Onset [...] of upper lobe of right lung acute [facility] Work Phone: Evaluation note* Diagnosis Onset [...] chronic Presence of aortocoronary bypass graft 2012 [facility] Work Phone: Evaluation note* Diagnosis [...] right foot with fat layer exposed chronic [facility] Work Phone: Evaluation note* Diagnosis Onset [...] right foot with fat layer exposed chronic [facility] Work Phone: Evaluation note* Diagnosis Onset [...] layer exposed chronic Shortness of breath chronic [facility] Work Phone: Evaluation note* Diagnosis Onset [...] of breath chronic 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 [facility] Work Phone: Evaluation note* Diagnosis Onset [...] of upper lobe of right lung chronic [facility] Work Phone: Evaluation note* Diagnosis Onset [...] right foot with fat layer exposed chronic [facility] Work Phone: Evaluation note* Diagnosis Onset [...] right foot with fat layer exposed chronic [facility] Work Phone: Evaluation note* Diagnosis Onset [...] right foot with fat layer exposed chronic [facility] Work Phone: Evaluation note* Diagnosis Onset [...] right foot with fat layer exposed chronic [facility] Work Phone: Evaluation note* Diagnosis Onset [...] right foot with fat layer exposed chronic [facility] Work Phone: Evaluation note* Diagnosis Onset [...] right foot with fat layer exposed resolved [facility] Work Phone: Evaluation note* Diagnosis Onset [...] right foot with fat layer exposed chronic [facility] Work Phone: Evaluation note* Diagnosis Onset [...] of upper lobe of right lung chronic [facility] Work Phone: Evaluation note* Diagnosis Onset Date Resolution Status Irregular heart rate acute COPD (chronic obstructive pulmonary disease) chronic 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 Plenty of fluids and rest today do not get dehydrated. Return if you are feeling a lot worse or too weak to get around her house. Follow-up with your doctor in the next several days to ensure you are improving. [facility] Work Phone: Hospital Discharge instructions Additional Instructions 1. Keep your postoperative dressing clean dry and intact 2. Continue strict glycemic control. 3. Partial weightbearing to heel with surgical shoe, use walker or crutches 4. Reach out to Dr. Suárez with any questions or concerns and follow-up in 1 week in clinic. [facility] Work Phone: Reason for referral (narrative)No reason for referral information availableWMercy Health St. [facility] Work Phone: Chief Complaint and Reason [...] 04 7:57pm Atherosclerosis of coronary artery of [place] heart without angina pectoris March 04, 2025 [...] 2025 7:57pm Atherosclerosis of coronary artery of [place] heart without angina pectoris March 04, 2025 [...] 15, 2025 4:56 pm 6 M FU/S/P [facility] 03/09March 17, 2025 12: 51pm Reason [...] 2025 7:57pm Atherosclerosis of coronary artery of [place] heart without angina pectoris March 04, 2025 [...] 15, 2025 4:56 pm 6 M FU/S/P [facility] 03/09March 17, 2025 12: 51pm atrial [...] 15, 2025 4:56 pm 6 M FU/S/P [facility] 03/09March 17, 2025 12: 51pm atrial [...] 2025 7:57pm Atherosclerosis of coronary artery of [place] heart without angina pectoris March 04, 2025 [...] 15, 2025 4:56 pm 6 M FU/S/P [facility] 03/09March 17, 2025 12: 51pm atrial [...] CHRONIC DIASTOLIC CHF, ELEVATED TR OPONIN T [place] 20th, 2025 7:57am AE OF CHRONIC DIASTOLIC [...] 2025 7:57pm Atherosclerosis of coronary artery of [place] heart without angina pectoris March 04, 2025 [...] 15, 2025 4:56 pm 6 M FU/S/P [facility] 03/09March 17, 2025 12: 51pm atrial [...] 15, 2025 4:56 pm 6 M FU/S/P [facility] 03/09March 17, 2025 12: 51pm atrial [...] 2025 7:57pm Atherosclerosis of coronary artery of [place] heart without angina pectoris March 04, 2025 [...] 15, 2025 4:56 pm 6 M FU/S/P [facility] 03/09March 17, 2025 12: 51pm atrial [...] 15, 2025 4:56 pm 6 M FU/S/P [facility] 03/09March 17, 2025 12: 51pm atrial [...] 2025 7:57pm Atherosclerosis of coronary artery of [place] heart without angina pectoris March 04, 2025 [...] 15, 2025 4:56 pm 6 M FU/S/P [facility] 03/09March 17, 2025 12: 51pm atrial [...] February 17, 2014 1 1:03am Power of Chemical Dependency Nurse No February 17, 2014 11:03am Advance Directive Response Recorded Date/ Time Name of Medical Power of Chemical Dependency Nurse SON April 14, 2022 8:29am Advance Directives No February 17 4 11:03am Living Will No April 14 2 8:29am Power of Chemical Dependency Nurse Yes April 14, 022 8:29am Advance Directive Response Recorded Date/ Time Name of Medical Power of Chemical Dependency Nurse SON April 14, 2022 7:29am Advance Directives No February 17 4 10:03am Living Will No April 14 2 7:29am Power of Chemical Dependency Nurse Yes April 14 7:29am Advance Directive Response Recorded Date/ Time Advance Directives No February 17 4 10:03am Living Will No April 14 2 7:29am Power of Chemical Dependency Nurse Yes April 14, 022 7:29am Advance Directive Response Recorded Date/ Time Advance Directives No February 17 4 11:03am Living Will No April 14 2 8:29am Power of Chemical Dependency Nurse Yes April 14, 8:29am Advance Directive Response Recorded Date/ Time Name of Medical Power of Chemical Dependency Nurse iGdeon Calderon December 30, 2022 10:39pm Advance Directives No February 17 4 11:03am Living Will Yes December 30, 2022 1 0:39pm Power of Chemical Dependency Nurse Yes December 30, 2022 10:39pm Advance Directive Response Recorded Date/ Time Advance Directives No February 17 4 11:03am Living Will Yes December 30, 2022 1 0:39pm Power of Chemical Dependency Nurse Yes December 30, 2022 10:39pm Advance Directive Response Recorded Date/ Time Advance Directives No February 17 4 10:03am Living Will Yes December 30, 2022 9 :39pm Power of Chemical Dependency Nurse Yes December 30, 2022 9:39pm Advance Directive Response Recorded Date/ Time Living Will Yes December 30, 2022 1 0:39pm Power of Chemical Dependency Nurse Yes December 30, 2022 10:39pm Advance Directives No February 17 11:03am Advance Directive Response Recorded Date/ Time Living Will Yes December 30, 2022 1 0:39pm Do you have a Healthcare Power of Chemical Dependency Nurse? Yes December 30, 2022 10:39pm Living Will No April 14 8:29am Do you have a Healthcare Power of Chemical Dependency Nurse? Yes April 14, 2022 8:29am Advance Directives No February 17 11:03am Advance Directive Response Recorded Date/ Time Living Will No April 14 8:29am Do you have a Healthcare Pow er of Chemical Dependency Nurse? Yes April 14, 2022 8:29am Do you have a Healthcare Pow er of Chemical Dependency Nurse? Yes March 04, 2025 2:58pm Name of Medical Power of Chemical Dependency Nurse Ed Daja olmstead March 04, 2025 2:58pm Advance Directives No February 17 11:03am Advance Directive Response Recorded Date/ Time Do you have a Healthcare Power of Chemical Dependency Nurse? Yes March 04, 2025 9:11pm Name of Medical Power of Chemical Dependency Nurse Ed Daja olmstead March 04, 2025 2:58pm Advance Directives No February 17 11:03am Advance Directive Response Recorded Date/ Time Do you have a Healthcare Power of Chemical Dependency Nurse? Yes March 04, 2025 9:11pm Name of Medical Power of Chemical Dependency Nurse Ed Daja olmstead March 04, 2025 2:58pm Do you have a Healthcare Power of Chemical Dependency Nurse? Yes March 15, 2025 5:04pm Name of Medical Power of Chemical Dependency Nurse Ed Daja March 15, 2025 5:04pm Advance Directives No February 17 4 11:03am Advance Directive Response Recorded Date/ Time Do you have a Healthcare Pow er of Chemical Dependency Nurse? Yes March 04, 2025 9:11pm Name of Medical Power of Chemical Dependency Nurse Ed Daja olmstead March 04, 2025 2:58pm Do you have a Healthcare Pow er of Chemical Dependency Nurse? Yes April 05, 2025 4:49pm Do you have a Healthcare Pow er of Chemical Dependency Nurse? Yes March 15, 2025 5:04pm Name of Medical Power of Chemical Dependency Nurse Ed Daja March 15, 2025 5:04pm Advance Directives No February 17 11:03am Advance Directive Response Recorded Date/ Time Do you have a Healthcare Pow er of Chemical Dependency Nurse? Yes March 04, 2025 9:11pm Name of Medical Power of Chemical Dependency Nurse Ed Daja olmstead March 04, 2025 2:58pm Do you have a Healthcare Pow er of Chemical Dependency Nurse? Yes April 05, 2025 8:49pm Do you have a Healthcare Pow er of Chemical Dependency Nurse? Yes March 15, 2025 5:04pm Name of Medical Power of Chemical Dependency Nurse Ed Daja March 15, 2025 5:04pm Advance Directives No February 17 11:03am Advance Directive Response Recorded Date/ Time Do you have a Healthcare Pow er of Chemical Dependency Nurse? Yes March 04, 2025 9:11pm Name of Medical Power of Chemical Dependency Nurse Ed Daja olmstead March 04, 2025 2:58pm Do you have a Healthcare Pow er of Chemical Dependency Nurse? Yes April 05, 2025 8:49pm Do you have a Healthcare Pow er of Chemical Dependency Nurse? Yes April 12, 2025 6:18pm Do you have a Healthcare Pow er of Chemical Dependency Nurse? Yes March 15, 2025 5:04pm Name of Medical Power of Chemical Dependency Nurse Ed Daja March 15, 2025 5:04pm Do you have a Healthcare Pow er of Chemical Dependency Nurse? Yes April 10, 2025 10:00pm Advance Directives No February 17 11:03am Advance Directive Response Recorded Date/ Time Do you have a Healthcare Pow er of Chemical Dependency Nurse? Yes March 04, 2025 9:11pm Name of Medical Power of Chemical Dependency Nurse Ed Daja olmstead March 04, 2025 2:58pm Do you have a Healthcare Pow er of Chemical Dependency Nurse? Yes April 05, 2025 8:49pm Do you have a Healthcare Pow er of Chemical Dependency Nurse? Yes April 12, 2025 6:18pm Do you have a Healthcare Pow er of Chemical Dependency Nurse? Yes March 15, 2025 5:04pm Name of Medical Power of Chemical Dependency Nurse Ed Daja March 15, 2025 5:04pm Do you have a Healthcare Pow er of Chemical Dependency Nurse? Yes April 10, 2025 10:00pm Do you have a Healthcare Pow er of Chemical Dependency Nurse? Yes April 17, 2025 6:20pm Name of Medical Power of Chemical Dependency Nurse Gideon Farnsworth April 17, 2025 6:20pm Do you have a Healthcare Pow er of Chemical Dependency Nurse? Yes April 19, 2025 8:42am Advance Directives [...] this informatio n is protected by the [facility] Confidentiality of Alcohol and Drug Abuse Patient Records regulations: The Federal rules restrict any use of the information to criminally investigate or prosecute any alcohol or drug abuse patient.[facility] the event this information is protected by the Federal Confidentiality of Alcohol and Drug Abuse Patient Records regulations: The Federal rules restrict any use of the information to criminally investigate or prosecute any alcohol or drug abuse patient.[facility] the event this information is protected by the Federal Confidentiality of Alcohol and Drug Abuse Patient Records regulations: The Federal rules restrict any use of the information to criminally investigate or prosecute any alcohol or drug abuse patient.[facility] the event this information is protected by the Federal Confidentiality of Alcohol and Drug Abuse Patient Records regulations: The Federal rules restrict any use of the information to criminally investigate or prosecute any alcohol or drug abuse patient.[facility] the event this information is protected by the Federal Confidentiality of Alcohol and Drug Abuse Patient Records regulations: The Federal rules restrict any use of the information to criminally investigate or prosecute any alcohol or drug abuse patient.[facility] Reason for Visit (unrecogniz ed section and content) Reason Comments Results Reason Comments Urinary Problem burning with urinati on x 1 week nasal congestion and drainage x 1 week Reason Comments Results COVID+ Reason Comments Patient Update Care Teams (unrecognized sec tion and content) Manganese Breaker Relationship Specialty Start Date End Date Tonio Fajardo DO [address] [place], [place] [id number] PCP - General Family Practice 04/05/22 Manganese Breaker Relationship Specialty Start Date End Date Tonio Fajardo DO [address] [place], [place] [id number] PCP - General Family Practice 04/05/22 Manganese Breaker Relationship Specialty Start Date End Date Tonio Fajardo DO [address] [place], [place] [phone] PCP - General Family Practice 04/05/22 Manganese Breaker Relationship Specialty Start Date End Date Tonio Fajardo DO [address] [place] [place] [place], [place] [id number] PCP - General Family Medicine 04/05/22 Team Status: Active Member Role Status Dates Dr. Tonio Fajardo DO Family Provider Active Dr. Tonio Fajardo DO Primary Care Provider Active Team Status: Inactive Member Role Status Dates Dr. Tonio Fajardo DO Primary Care Provider, Referrin g Provider Active Iker H Roof DECK SUPERVISOR, DECK SUPERVISOR-C Attending Provider Active Team Status: Inactive Member [...] DO Primary Care Provider Active Bonny Glynn DECK SUPERVISOR, DECK SUPERVISOR-C Attending Pro vider, Referring Provider, Other Provider [...] DO Primary Care Provider Active Bonny Glynn DECK SUPERVISOR, DECK SUPERVISOR-C Attending Provider Active Team Status: Active Member [...] DO Primary Care Provider Active Bonny Glynn DECK SUPERVISOR, DECK SUPERVISOR-C Attending Provider Active Team Status: Inactive Member Role Status Dates Dr. Tonio Fajardo , DO Primary Care Provider Active Bonny Glynn DECK SUPERVISOR, DECK SUPERVISOR-C Attending Provider, Referri ng Provider Active Team Status: Inactive Member Role Status Dates Dr. Tonio Fajardo , DO Primary Care Provider, Referrin g Provider Active Dr. Tyrell Uriarte , DO Attending Provider Active Team Status: Active Member Role Status Dates Dr. Tonio Fajardo , DO Primary Care Provider Active Bonny Glynn DECK SUPERVISOR, DECK SUPERVISOR-C Attending Provider, Other P rovider Active Team [...] Provider, Referrin g Provider Active Bonny Glynn DECK SUPERVISOR, DECK SUPERVISOR-C Attending Provider Active Team Status: Inactive Member [...] Provider, Referrin g Provider Active Lorie Mart DECK SUPERVISOR, DECK SUPERVISOR-C Attending Provider Active Team Status: Inactive Member Role Status Dates Dr. Tonio Fajardo , DO Primary Care Provider, Referrin g Provider Active Leslie DAMIAN, PA Attending Provider Active Team Status: Inactive Member Role Status Dates Dr. Tonio Fajardo DO Primary Care Provider Active Lorie Mart DECK SUPERVISOR, DECK SUPERVISOR-C Attending Provider, Referrin g Provider Active Team [...] Dr. Joaquim Suárez DPM Attending Provider Active Manganese Breaker Relationship Specialty Start Date End Date Tonio Fajardo DO [address] [place] [address] PCP - General Family Medicine 04/05/22 Team [...] 2024 End: October 16, 2024 Lorie Mart DECK SUPERVISOR, DECK SUPERVISOR-C Attending Provider Active Start: October 16, 2024 End: October 16, 2024 Lorie Mart DECK SUPERVISOR, DECK SUPERVISOR-C Referring Provider Active Start: October 16, 2024 End: October 16, 2024 Team Status: Active Member Role Status Dates Dr. Tonio Fajardo DO Primary Care Provider Active Start: October 17, 2024 Lorie Mart DECK SUPERVISOR, DECK SUPERVISOR-C Referring Provider Active Start: October 17, 2024 Lorie Mart DECK SUPERVISOR, DECK SUPERVISOR-C Other Provider Active Start: October 17, 2024 [...] 2024 End: October 23, 2024 Lorie Mart DECK SUPERVISOR, DECK SUPERVISOR-C Attending Provider Active Start: October 23, 2024 [...] 2025 End: March 09, 2025 Iker Rodriguez DECK SUPERVISOR, DECK SUPERVISOR-C Other Provider Active Start : March 04, [...] Active Start: March 05, 2025 Iker Rodriguez DECK SUPERVISOR, DECK SUPERVISOR-C Other Provider Active Start : March 05, [...] Active Start: March 06, 2025 Iker Rodriguez DECK SUPERVISOR, DECK SUPERVISOR-C Other Provider Active Start : March 06, [...] Active Start: March 06, 2025 Iker Rodriguez DECK SUPERVISOR, DECK SUPERVISOR-C Other Provider Active Start : March 06, [...] Active Start: March 07, 2025 Iker Rodriguez DECK SUPERVISOR, DECK SUPERVISOR-C Other Provider Active Start : March 07, [...] Active Start: March 08, 2025 Iker Rodriguez DECK SUPERVISOR, DECK SUPERVISOR-C Other Provider Active Start : March 08, [...] Active Start: March 08, 2025 Iker Rodriguez DECK SUPERVISOR, DECK SUPERVISOR-C Other Provider Active Start : March 08, [...] Active Start: March 09, 2025 Iker Rodriguez DECK SUPERVISOR, DECK SUPERVISOR-C Other Provider Active Start : March 09, [...] Active Start: March 09, 2025 Iker Rodriguez DECK SUPERVISOR, DECK SUPERVISOR-C Other Provider Active Start : March 09, [...] 2025 End: April 10, 2025 Dr. Issa oLoney MD Other Provider Active Start : April 05, 2025 End: April 10, 2025 Team Status: Active Member Role/Relationship Status Dates Dr. Tonio Fjaardo DO Primary Care Provider Active Start: April [...] Active Member Role/Relationship Status Dates Dr. Tonio aFjardo DO Primary Care Provider Active Start: April 07, 2025 Dr. Ld Hayes DO Emergency Provider Active Start : April 07, 2025 Dr. Nicola Lindsey DO Admit Provider Active Start: April 07, 2025 Dr. Nicola Lindsey DO Other Provider Active Start: April 07, 2025 Dr. Davon Saravia MD Other Provider Active Start: April 07, 2025 Dr. Nciola Roman MD Attending Provider Active Start: April [...] Provider Active Start: April 09, 2025 Dr. Nicoal Roman MD Attending Provider Active Start: April [...] section and content) DATE CREATED AUTHOR 08/12/2022 [facility] DATE CREATED AUTHOR AUTHOR'S ORGANIZ ATION 04/19/2025 [facility] DATE CREATED AUTHOR AUTHOR'S ORGANIZ ATION 04/20/2025 [facility] FOR RECORDS PERTAINING TO PATIENTS WHO ARE [...] BE BASED ON THE PRIMARY CLINICAL RECORDS. [employer] provides no warranty or guarantee of the accuracy or completeness of information in this document.
[2025-04-20] MEDS: Glucerna Shake 120 ML LIQUID PO (16:32)
--- NOTE | 2025-04-20 18:11 | PN.HOSP_ITS ---
Reason for Visit Chief Complaint: Syncopal episode Subjective Subjective Patient was seen and examined today, his orthostatics were positive today and the patient became presyncopal when he stood up. I gave him an additional 500 cc of normal saline and at this time I have decided to place him on IV of normal saline at 75 cc/h until tomorrow and reevaluate the patient. Objective Data Objective Data Vital Signs: Vital Signs Temp Pulse Resp BP Pulse Ox O2 Del Method O2 Flow Rate 97.7 F L 101 H 18 132/55 H 100 Nasal Cannula 2 04/20/25 14:06 04/20/25 14:06 04/20/25 14:06 04/20/25 14:06 04/20/25 14:06 04/20/25 14:04/20/25 14:06 FiO2 2 04/19/25 21:50 Oxygen Flow Rate (L/min) 2 Oxygen Delivery Method Nasal Cannula Weight: 65.1 kg Body Mass Index (BMI) 23.1 Intake & Output: Intake and Output for Last 24 Hours 04/18/25 04/19/25 04/20/25 23:59 23:59 23:59 Intake Total 1525.83 / 1645.83 620 / 620 Output Total 700 / 1000 1050 / 1050 Balance 825.83 / 645.83 -430 / -430 Medical Nutrition Assessment Dietitian: Malnutrition Criteria Met Start: 04/20/25 14:15 Freq: Status: Active Protocol: Document 04/20/25 14:15 RMA (Rec: 04/20/25 14:16 RMA [id number]) Nutrition Malnutrition Evidence of Yes Malnutrition Exists Malnutrition ( Chronic moderate): Evidenced By Suboptimal Energy Intake (Moderate),Weight Loss ( Moderate) Clinical Problem Chronic Disease or Condition Related Malnutrition Etiology Moderate protein-calorie malnutrition in the context of chronic disease related to inadequate energy/oral intake Signs/Symptoms as evidenced by ~5% unintentional weight loss x past 1- 2 months, PO meeting less than 75% estimated nutrition needs x 2 months; BMI 23.2 Status Active Problem Recommendation Dietitian Will adjust diet to 1800 calorie/consistent Recommendations/ carbohydrate. Changes Will add 120mL glucerna shake 3 times per day w/ medpass. Trend weight and need for additional ONS. Lab / Micro Data 04/20/25 05:57 04/20/25 05:57 Labs: Laboratory Results - last 24 hr 08/31/25 21:53: POC Glucose 178 H 04/20/25 05:57: WBC 9.9, RBC 3.39 L, Hgb 9.1 L, Hct 29.4 L, MCV 86.7, MCH 26.8 L , MCHC 31.0 L, RDW Std Deviation 53.4 H, RDW Coeff of Reggie 17.1 H, Plt Count 192, MPV 11.0, Sodium 135, Potassium 3.4, Chloride 91 L, Carbon Dioxide 32.1 H, Anion Gap 12, BUN 37 H, Creatinine 1.65 H, Estim Creat Clear Calc 32.22 L, Est GFR (MDRD) Non-Af 42 L, BUN/Creatinine Ratio 22.4 H, Glucose 154 H, Calcium 9.1 04/20/25 06:22: POC Glucose 156 H 04/20/25 11:19: POC Glucose 178 H 04/20/25 16:27: POC Glucose 173 H Physical Exam Const alert, oriented x3 and no apparent distress General Appearance: cooperative, well kempt and well developed Orientation / Consciousness: awake, oriented to person, oriented to place and oriented to time HEENT normocephalic, head/scalp atraumatic and moist oral mucous membranes Eyes PERRL, EOMs intact bilaterally and conjunctivae normal Neck supple, no JVD, thyroid normal and no carotid bruits General: trachea midline Resp normal respiratory effort, no retractions, no use of accessory muscles and clear to auscultation bilaterally Auscultation: Negative for rales, rhonchi or wheezes Cardio regular rate, regular rhythm, S1 normal heart sound, S2 normal heart sound, no murmurs, no rub and no gallops GI normal to inspection, nondistended, normoactive bowel sounds, soft to palpation, non-tender and non-distended Extremity no clubbing, cyanosis or edema Skin no rashes or lesions noted General Skin Exam: no breakdown Neuro oriented x3, CN's II-XII intact bilaterally, moves all extremities, no focal motor deficits and no sensory deficits noted Sensorium / Orientation: awake and alert Speech: speech normal Psych affect normal Assessment & Plan Assessment/Plan (1) Orthostatic hypotension: PLAN: Plan 1. Syncopal episode with positive orthostatics secondary to hypovolemia-patient will be given IV fluids and reevaluated tomorrow, PT and OT will continue to work with patient #2 chronic hypoxic respiratory failure-patient remains on nasal cannula oxygen at rest and with exertion #3 chronic obstructive pulmonary disease-continue aerosol treatments as needed, I will add DuoNeb aerosols scheduled #4 type 2 diabetes-blood sugars will be monitored, sliding scale insulin will be administered as needed, patient is on basal insulin #5 paroxysmal atrial fibs-patient is on Eliquis and rate control medications #6 coronary artery disease-patient is on Plavix and metoprolol #7 chronic kidney disease stage IIIb secondary to type 2 diabetes-complicates care, management, recovery, and prognosis Total clinical time spent by myself addressing the patient's medical issues, reviewing all of his data, and collaborating with the patient's care team: 35 minutes Charges/Coding Visit Charges Inpatient E&M: 64023 Subs Hosp L2
[2025-04-20] MEDS: 0.9% Normal Saline (1000mL) 1,000 ML 75 ML IV (18:39)
[2025-04-20] MEDS: Insulin Glargine-YFGN 100 UNIT/ML Pen 20 UNIT SC (20:35)
[2025-04-21] VITALS (9 sets, daily range): BP systolic 94–133; BP diastolic 43–64; PULSE 95–107; RESP 14–18; TEMP 36.3–36.8; O2SAT 99–100
[2025-04-21 04:54] LABS: Anion Gap 10 (5-15); BUN 32 mg/dL (4-19); BUN/Creat Ratio 20.6 RATIO (10-20); Calcium,Total 8.6 mg/dL (7.6-11.0); Carbon Dioxide 29.6 mmol/L (21.0-32.0); Chloride 96 mmol/L (98-108); Estimated Creatinine Clearance 34.08 ml/min (50-250); Glucose 137 mg/dL (70-99); Potassium 3.5 mmol/L (3.3-5.1)
[2025-04-21] MEDS: 0.9% Normal Saline (1000mL) 1,000 ML 75 ML IV ×2 (08:48→22:03)
[2025-04-21] MEDS: Metoprolol(XL)Succ 25 MG Tablet 12.5 MG PO ×2 (08:57→22:01)
[2025-04-21] MEDS: APIXABAN 2.5 MG TABLET (WCH) PO ×2 (08:58→22:01)
[2025-04-21] MEDS: Glucerna Shake 120 ML LIQUID PO ×2 (09:00→17:52)
--- NOTE | 2025-04-21 10:35 | CASEMGMT ---
KHURRAM DAO in to discuss discharge planning with patient. Patient states he wishes to return to TCU at discharge. Patient had no further questions or concerns. KHURRAM DAO called and spoke with HPOA, LUPE Richter, regarding discharge planning. Neelam wishes for patient to return to TCU. KHURRAM DAO updated [facility] is [facility]CU that patient wishes to return when medically ready and could be ready for discharge today.
--- NOTE | 2025-04-21 19:11 | PN.HOSP_ITS ---
Reason for Visit Chief Complaint: Syncopal episode Subjective Subjective Patient was seen and examined today, patient felt lightheaded when he got up to move around with physical therapy, I elected to place him on midodrine today and reevaluate him tomorrow. I will continue his IV fluid and hopefully he will be able to go back to long term tomorrow. Patient stated this morning that he felt better today but shortly thereafter when he stood up he got lightheaded. Objective Data Objective Data Vital Signs: Vital Signs Temp Pulse Resp BP Pulse Ox O2 Del Method O2 Flow Rate 97.6 F L 97 16 127/62 H 100 Nasal Cannula 2 04/21/25 13:20 04/21/25 13:20 04/21/25 13:20 04/21/25 13:20 04/21/25 13:20 04/21/25 15:00 04/21/25 15:00 FiO2 2 04/19/25 21:50 Oxygen Flow Rate (L/min) 2 Oxygen Delivery Method Nasal Cannula Weight: 65.1 kg Body Mass Index (BMI) 23.1 Intake & Output: Intake and Output for Last 24 Hours 04/19/25 04/20/25 04/21/25 23:59 23:59 23:59 Intake Total 1525.83 / 1645.83 620 / 870 1999 / 1999 Output Total 700 / 1000 1400 / 1700 1450 / 1450 Balance 825.83 / 645.83 -780 / -830 550 / 550 Medical Nutrition Assessment Dietitian: Malnutrition Criteria Met Start: 04/20/25 14:15 Freq: Status: Active Protocol: Document 04/20/25 14:15 RMA (Rec: 04/20/25 14:16 RMA [id number]) Nutrition Malnutrition Evidence of Yes Malnutrition Exists Malnutrition ( Chronic moderate): Evidenced By Suboptimal Energy Intake (Moderate),Weight Loss ( Moderate) Clinical Problem Chronic Disease or Condition Related Malnutrition Etiology Moderate protein-calorie malnutrition in the context of chronic disease related to inadequate energy/oral intake Signs/Symptoms as evidenced by ~5% unintentional weight loss x past 1- 2 months, PO meeting less than 75% estimated nutrition needs x 2 months; BMI 23.2 Status Active Problem Recommendation Dietitian Will adjust diet to 1800 calorie/consistent Recommendations/ carbohydrate. Changes Will add 120mL glucerna shake 3 times per day w/ medpass. Trend weight and need for additional ONS. Lab / Micro Data 04/20/25 05:57 04/21/25 03:34 Labs: Laboratory Results - last 24 hr 04/20/25 20:32: POC Glucose 213 H 04/21/25 03:34: Sodium 136, Potassium 3.5, Chloride 96 L, Carbon Dioxide 29.6, Anion Gap 10, BUN 32 H, Creatinine 1.56 H, Estim Creat Clear Calc 34.08 L, Est GFR (MDRD) Non-Af 45 L, BUN/Creatinine Ratio 20.6 H, Glucose 137 H, Calcium 8.6 04/21/25 06:37: POC Glucose 134 H 04/21/25 11:33: POC Glucose 231 H 04/21/25 16:28: POC Glucose 220 H Physical Exam Narrative alert, oriented x3 and no apparent distress General Appearance: cooperative, well kempt and well developed Orientation / Consciousness: awake, oriented to person, oriented to place and oriented to time HEENT normocephalic, head/scalp atraumatic and moist oral mucous membranes Eyes PERRL, EOMs intact bilaterally and conjunctivae normal Neck supple, no JVD, thyroid normal and no carotid bruits General: trachea midline Resp normal respiratory effort, no retractions, no use of accessory muscles and clear to auscultation bilaterally Auscultation: Negative for rales, rhonchi or wheezes Cardio regular rate, regular rhythm, S1 normal heart sound, S2 normal heart sound, no murmurs, no rub and no gallops GI normal to inspection, nondistended, normoactive bowel sounds, soft to palpation, non-tender and non-distended Extremity no clubbing, cyanosis or edema Skin no rashes or lesions noted General Skin Exam: no breakdown Neuro oriented x3, CN's II-XII intact bilaterally, moves all extremities, no focal motor deficits and no sensory deficits noted Sensorium / Orientation: awake and alert Speech: speech normal Psych affect normal Assessment & Plan Assessment/Plan (1) Orthostatic hypotension: PLAN: Plan 1. Syncopal episode with positive orthostatics secondary to hypovolemia-patient will be given IV fluids and reevaluated tomorrow, PT and OT will continue to work with patient, patient is now on midodrine #2 chronic hypoxic respiratory failure-patient remains on nasal cannula oxygen at rest and with exertion #3 chronic obstructive pulmonary disease-continue aerosol treatments as needed, I will add DuoNeb aerosols scheduled #4 type 2 diabetes-blood sugars will be monitored, sliding scale insulin will be administered as needed, patient is on basal insulin #5 paroxysmal atrial fibs-patient is on Eliquis and rate control medications #6 coronary artery disease-patient is on Plavix and metoprolol #7 chronic kidney disease stage IIIb secondary to type 2 diabetes-complicates care, management, recovery, and prognosis #8 chronic moderate protein and caloric malnutrition-in the context of chronic disease related to inadequate energy/oral intake as evidenced by 5% unintentional weight loss times the past 1 to 2 months, p.o. eating less than 75% of estimated nutritional needs x 2 months-patient's diet was adjusted to an 1800-calorie carbohydrate diet and 128 mL of Glucerna shake 3 times a day will be given to the patient with med [employer]. Nutritional services is participating in his care Total clinical time spent by myself addressing the patient's medical issues, reviewing all of his data, and collaborating with the patient's care team: 35 minutes Charges/Coding Visit Charges Inpatient E&M: 29539 Subs Hosp L2
[2025-04-21] MEDS: Insulin Glargine-YFGN 100 UNIT/ML Pen 20 UNIT SC (22:02)
[2025-04-22] VITALS (11 sets, daily range): BP systolic 93–141; BP diastolic 41–81; PULSE 60–103; RESP 16; TEMP 36.7–37; O2SAT 94–100
[2025-04-22] MEDS: Glucerna Shake 120 ML LIQUID PO ×3 (08:13→16:55)
[2025-04-22] MEDS: Metoprolol(XL)Succ 25 MG Tablet 12.5 MG PO ×2 (08:20→22:00)
[2025-04-22] MEDS: APIXABAN 2.5 MG TABLET (WCH) PO ×2 (08:20→22:00)
[2025-04-22] MEDS: 0.9% Normal Saline (1000mL) 1,000 ML 75 ML IV (11:18)
[2025-04-22] MEDS: Insulin Glargine-YFGN 100 UNIT/ML Pen 20 UNIT SC (22:06)
[2025-04-23] MEDS: 0.9% Normal Saline (1000mL) 1,000 ML 75 ML IV ×2 (00:58→14:27)
[2025-04-23 02:10] VITALS: BP 121/57; PULSE 96; RESP 17; TEMP 36.8; O2SAT 100
[2025-04-23 02:19] VITALS: PULSE 96
[2025-04-23 08:00] VITALS: BP 128/56; BP 133/62; BP 93/73; PULSE 94; PULSE 98
[2025-04-23 08:27] VITALS: PULSE 94
[2025-04-23] MEDS: Metoprolol(XL)Succ 25 MG Tablet 12.5 MG PO (08:27)
[2025-04-23] MEDS: APIXABAN 2.5 MG TABLET (WCH) PO (08:28)
[2025-04-23] MEDS: Glucerna Shake 120 ML LIQUID PO ×3 (08:28→17:39)
[2025-04-23 10:50] VITALS: O2SAT 95
[2025-04-23 14:00] VITALS: BP 105/55; BP 109/73; BP 135/64; BP 146/64; PULSE 100; PULSE 97; PULSE 98; RESP 18; TEMP 36.6; O2SAT 96
--- NOTE | 2025-04-23 15:12 | PCM.PN.HOSP ---
Reason for Visit Chief Complaint: Syncopal episode Subjective Subjective The date of this entry is 04/22/2025: Patient was seen and examined today, unfortunately he remains orthostatically hypotensive, he did fairly well with therapy however. I made the decision to increase the patient's midodrine to 10 mg 3 times daily. I also elected to keep him on fluids for now. Objective Data Objective Data Vital Signs: Vital Signs Temp Pulse Resp BP Pulse Ox O2 Del Method O2 Flow Rate 97.9 F 97 18 146/64 H 96 Nasal Cannula 2 04/23/25 14:00 04/23/25 14:00 04/23/25 14:00 04/23/25 14:00 04/23/25 14:00 04/23/25 14:00 04/23/25 14:00 FiO2 2 04/19/25 21:50 Oxygen Flow Rate (L/min) 2 Oxygen Delivery Method Nasal Cannula Weight: 65.1 kg Body Mass Index (BMI) 23.1 Intake & Output: Intake and Output for Last 24 Hours 04/21/25 04/22/25 04/23/25 23:59 23:59 23:59 Intake Total 3143.75 / 3143.75 1393.75 / 1393.75 2250 / 2250 Output Total 1650 / 1650 600 / 600 200 / 200 Balance 1493.75 / 1493.75 793.75 / 793.75 2049 Medical Nutrition Assessment Dietitian: Malnutrition Criteria Met Start: 04/20/25 14:15 Freq: Status: Active Protocol: Document 04/20/25 14:15 RMA (Rec: 04/20/25 14:16 RMA [id number]) Nutrition Malnutrition Evidence of Yes Malnutrition Exists Malnutrition ( Chronic moderate): Evidenced By Suboptimal Energy Intake (Moderate),Weight Loss ( Moderate) Clinical Problem Chronic Disease or Condition Related Malnutrition Etiology Moderate protein-calorie malnutrition in the context of chronic disease related to inadequate energy/oral intake Signs/Symptoms as evidenced by ~5% unintentional weight loss x past 1- 2 months, PO meeting less than 75% estimated nutrition needs x 2 months; BMI 23.2 Status Active Problem Recommendation Dietitian Will adjust diet to 1800 calorie/consistent Recommendations/ carbohydrate. Changes Will add 120mL glucerna shake 3 times per day w/ medpass. Trend weight and need for additional ONS. Lab / Micro Data 04/20/25 05:57 04/21/25 03:34 Labs: Laboratory Results - last 24 hr 04/22/25 16:52: POC Glucose 151 H 04/22/25 22:04: POC Glucose 120 H 04/23/25 06:14: POC Glucose 130 H 04/23/25 12:06: POC Glucose 231 H Physical Exam Narrative alert, oriented x3 and no apparent distress General Appearance: cooperative, well kempt and well developed Orientation / Consciousness: awake, oriented to person, oriented to place and oriented to time HEENT normocephalic, head/scalp atraumatic and moist oral mucous membranes Eyes PERRL, EOMs intact bilaterally and conjunctivae normal Neck supple, no JVD, thyroid normal and no carotid bruits General: trachea midline Resp normal respiratory effort, no retractions, no use of accessory muscles and clear to auscultation bilaterally Auscultation: Negative for rales, rhonchi or wheezes Cardio regular rate, regular rhythm, S1 normal heart sound, S2 normal heart sound, no murmurs, no rub and no gallops GI normal to inspection, nondistended, normoactive bowel sounds, soft to palpation, non-tender and non-distended Extremity no clubbing, cyanosis or edema Skin no rashes or lesions noted General Skin Exam: no breakdown Neuro oriented x3, CN's II-XII intact bilaterally, moves all extremities, no focal motor deficits and no sensory deficits noted Sensorium / Orientation: awake and alert Speech: speech normal Psych affect normal Assessment & Plan Assessment/Plan (1) Orthostatic hypotension: PLAN: Plan 1. Syncopal episode with positive orthostatics secondary to hypovolemia-patient will be given IV fluids and reevaluated tomorrow, PT and OT will continue to work with patient, patient is now on 10 mg midodrine 3 times daily #2 chronic hypoxic respiratory failure-patient remains on nasal cannula oxygen at rest and with exertion #3 chronic obstructive pulmonary disease-continue aerosol treatments as needed, DuoNeb aerosols scheduled #4 type 2 diabetes-blood sugars will be monitored, sliding scale insulin will be administered as needed, patient is on basal insulin #5 paroxysmal atrial fibs-patient is on Eliquis and rate control medications #6 coronary artery disease-patient is on Plavix and metoprolol #7 chronic kidney disease stage IIIb secondary to type 2 diabetes-complicates care, management, recovery, and prognosis #8 chronic moderate protein and caloric malnutrition-in the context of chronic disease related to inadequate energy/oral intake as evidenced by 5% unintentional weight loss times the past 1 to 2 months, p.o. eating less than 75% of estimated nutritional needs x 2 months-patient's diet was adjusted to an 1800-calorie carbohydrate diet and 128 mL of Glucerna shake 3 times a day will be given to the patient with med [employer]. Nutritional services is participating in his care Total clinical time spent by myself addressing the patient's medical issues, reviewing all of his data, and collaborating with the patient's care team: 35 minutes Charges/Coding Visit Charges Inpatient E&M: 15552 Subs Hosp L2
--- NOTE | 2025-04-23 16:31 | CASEMGMT ---
KHURRAM DAO NOTE: RN SYLWIA informed plan is for pt to discharge to [facility] today. Green sheet placed on chart w/instructions. Gal MCCORMICK RN, CM
--- NOTE | 2025-04-23 16:55 | PCM.TXEXTCAR ---
Diet Diet Order/Speech Therapy: INPATIENT Hospital Diet / Speech Therapy Order(s) 04/20/25 14:16 Diet: Consistent Carb - Calorie Controlled Food consistency:: Regular Liquid Consistency:: Regular/Thin How many daily calories?: 1800 calorie Routine Orders/Code Status Code Status: Full Code DC O2, CPAP, BIPAP needs Home O2 Discharge instructions: Yes Type of respiratory needs?: Oxygen Oxygen frequency: Continuous Continuous oxygen liters per minute: 2 L Wound(s) Left Chest: Wound Type: Surgical Incision Therapies Weight Bearing: Full weight bearing Physical Therapy: Eval and Treat Occupational Therapy: Eval and Treat Problem/Diagnosis (1) Orthostatic hypotension: Status: Acute Code(s): I95.1 - Orthostatic hypotension Plan 1. Syncopal episode with positive orthostatics secondary to hypovolemia-patient will be given IV fluids and reevaluated tomorrow, PT and OT will continue to work with patient, patient is now on 10 mg midodrine 3 times daily #2 chronic hypoxic respiratory failure-patient remains on nasal cannula oxygen at rest and with exertion #3 chronic obstructive pulmonary disease-continue aerosol treatments as needed, DuoNeb aerosols scheduled #4 type 2 diabetes-blood sugars will be monitored, sliding scale insulin will be administered as needed, patient is on basal insulin #5 paroxysmal atrial fibs-patient is on Eliquis and rate control medications #6 coronary artery disease-patient is on Plavix and metoprolol #7 chronic kidney disease stage IIIb secondary to type 2 diabetes-complicates care, management, recovery, and prognosis #8 chronic moderate protein and caloric malnutrition-in the context of chronic disease related to inadequate energy/oral intake as evidenced by 5% unintentional weight loss times the past 1 to 2 months, p.o. eating less than 75% of estimated nutritional needs x 2 months-patient's diet was adjusted to an 1800-calorie carbohydrate diet and 128 mL of Glucerna shake 3 times a day will be given to the patient with [employer]. Nutritional services is participating in his care Total clinical time spent by myself addressing the patient's medical issues, reviewing all of his data, and collaborating with the patient's care team: 35 minutes Allergies/Procedures Done in Hospital Allergies ibuprofen Allergy (Severe, Verified 04/19/25 08:24) Facial swelling (angioedema) Procedures: None Type of Care/Length of Stay Estimated LOS: Convalescent Care Less Than 30 days Type of Care Needed: Skilled Rehab Potential: Good Prognosis: Good Additional Orders/Day of Discharge H&P will serve as current which was dated: 04/19/25 Day of Discharge: 04/23/25 Dietary and Speech Recommendations Dietitian Recommendations/Changes: Will adjust diet to 1800 calorie/consistent carbohydrate. Will add 120mL glucerna shake 3 times per day w/ medpass. Trend weight and need for additional ONS. Discharge Plan Admission Admit Date/Time: 04/20/25 13:48 Primary Reason for Your Visit: syncope, orthostatic hypotension Attending Provider: Luis Mccallum Primary Care Provider: Luis Johnson Consulting Providers: Kwaku Narayanan Instructions Additional Instructions / Restrictions: Monitor blood pressure closely, it may be necessary to cut back or discontinue midodrine and/or Florinef Discharge Orders/Prescriptions Prescriptions: New acetaminophen 325 mg Tablet 650 mg PO Q6H PRN PRN (Reason: Pain 1-10 Or Fever>100.7) Qty: 0 0RF albuterol sulfate 2.5 mg /3 mL (0.083 %) Solution For Nebulization 2.5 mg inhalation Q4H PRN (Reason: shortness of breath or wheezing) Qty: 0 0RF midodrine 5 mg Tablet 10 mg PO TIDCM Qty: 0 0RF fludrocortisone 0.1 mg Tablet 0.1 mg PO BID Qty: 0 0RF insulin lispro [Humalog KwikPen Insulin] 100 unit/mL Insulin Pen See Protocol subcut ACHS Qty: 0 0RF Protocol: 3. Sliding Scale Insulin Med Dosing Condition: 150-189 mg/dl = 1 unit Condition: 190-229 mg/dl = 2 units Condition: 230-269 mg/dl = 3 units Condition: 270-309 mg/dl = 4 units Condition: 310-349 mg/dl = 5 units Condition: 350-399 mg/dl = 6 units Condition: 400-449 mg/dl = 7 units Condition: Greater than 449 call physician Protocol Text: Suggested for: - Patients on Total Daily Insulin Dose of 37-55 units - Obese, infected, or steroid patients MEDIUM DOSING ALGORITHIM Glucerna 1.2 Gonzalo 0.06-1.2 gram-kcal/mL Liquid 120 ml PO TIDCM Qty: 0 0RF insulin glargine-yfgn 100 unit/mL (3 mL) Insulin Pen 20 unit subcut QHS Qty: 0 0RF Continued multivitamin [Daily Multi-Vitamin] Tablet 1 tab PO DAILY pravastatin 20 mg tablet 20 mg PO DAILY docusate sodium [Colace] 100 mg capsule 100 mg PO DAILY PRN Eliquis 5 mg Tablet 2.5 mg PO BID 30 Days Qty: 30 3RF tamsulosin 0.4 mg Capsule 0.4 mg PO DAILY@1730 30 Days Qty: 30 2RF clopidogrel 75 mg tablet 75 mg PO DAILY (DME) OXYGEN - Supplemental ([facility] INFORMATIONAL USE ONLY) Gas See Rx Instructions .ROUTE Patient Comments: 2 lpm at rest, 3 lpm on exertion, 2 lpm at HS DME company: [employer] CM Rx Instructions: As directed ipratropium-albuterol 0.5 mg-3 mg(2.5 mg base)/3 mL solution for nebulization 3 ml inhalation Q8H metoprolol succinate 25 mg tablet extended release 24 hr 12.5 mg PO BID Qty: 90 3RF Discontinued cranberry 500 mg capsule 500 mg PO DAILY Rx Instructions: administer with meals albuterol sulfate 90 mcg/actuation HFA aerosol inhaler 2 puff inhalation Q4H PRN (Reason: shortness of breath or wheezing) Qty: 3 3RF Rx Instructions: administer with spacer umeclidinium-vilanterol [Anoro Ellipta] 62.5-25 mcg/actuation blister with device 1 inh inhalation QDAY Qty: 60 3RF insulin glargine 100 UNIT/ML solution 30 unit SQ QHS Januvia 50 mg Tablet 50 mg PO DAILY insulin glargine [Lantus Solostar U-100 Insulin] 100 unit/mL (3 mL) insulin pen 30 unit subcut QHS guaifenesin [Mucinex] 600 mg tablet extended release 12hr 1,200 mg PO BID Qty: 20 0RF furosemide [Lasix] 40 mg tablet 40 mg PO DAILY Qty: 60 0RF Eucerin Cream 1 applic topical BID aspirin 81 mg tablet,chewable 1 tab PO DAILY Tradjenta 5 mg tablet 5 mg PO DAILY Referrals / Follow Up: Luis Johnson DO [Primary Care Provider] - Disposition Disposition (needs filled in before D/C Order can be placed): Custodial Facility
--- NOTE | 2025-04-23 17:03 | DS.PCM_ITS ---
Providers Date of Admission: 04/20/25 Date of Discharge: 04/23/25 Primary Care Physician: Dr. Luis Johnson DO Reason For Visit: PRESYNCOPAL SYMPTOMS W/POSITIVE ORTHOSTATICS Diagnosis Discharge Diagnosis (1) Orthostatic hypotension: Status: Acute Code(s): I95.1 - Orthostatic hypotension Plan 1. Syncopal episode with positive orthostatics secondary to hypovolemia-patient will be given IV fluids and reevaluated tomorrow, PT and OT will continue to work with patient, patient is now on 10 mg midodrine 3 times daily #2 chronic hypoxic respiratory failure-patient remains on nasal cannula oxygen at rest and with exertion #3 chronic obstructive pulmonary disease-continue aerosol treatments as needed, DuoNeb aerosols scheduled #4 type 2 diabetes-blood sugars will be monitored, sliding scale insulin will be administered as needed, patient is on basal insulin #5 paroxysmal atrial fibs-patient is on Eliquis and rate control medications #6 coronary artery disease-patient is on Plavix and metoprolol #7 chronic kidney disease stage IIIb secondary to type 2 diabetes-complicates care, management, recovery, and prognosis #8 chronic moderate protein and caloric malnutrition-in the context of chronic disease related to inadequate energy/oral intake as evidenced by 5% unintentional weight loss times the past 1 to 2 months, p.o. eating less than 75% of estimated nutritional needs x 2 months-patient's diet was adjusted to an 1800-calorie carbohydrate diet and 128 mL of Glucerna shake 3 times a day will be given to the patient with [employer]. Nutritional services is participating in his care Total clinical time spent by myself addressing the patient's medical issues, reviewing all of his data, and collaborating with the patient's care team: 35 minutes Medications at Discharge Home Medications multivitamin (Daily Multi-Vitamin tablet) 1 tab PO DAILY supplement 06/28/20 pravastatin 20 mg tablet 20 mg PO DAILY hyperlipidemia 01/17/22 docusate sodium 100 mg capsule (Colace) 100 mg PO DAILY PRN stool softner 07/25/23 apixaban 5 mg tablet (Eliquis) 2.5 mg (1/2 x 5 mg) PO BID blood thinner 30 days #30 tabs 03/09/25 tamsulosin 0.4 mg capsule 0.4 mg PO DAILY@1730 prostate 30 days #30 caps 03/09/25 metoprolol succinate 25 mg tablet,extended release 24 hr 12.5 mg (1/2 x 25 mg) PO BID blood thinner #90 tabs 04/03/25 clopidogrel 75 mg tablet 75 mg PO DAILY anti platelet 04/05/25 OXYGEN - Supplemental ([facility] INFORMATIONAL USE ONLY) 04/09/25 ipratropium 0.5 mg-albuterol 3 mg (2.5 mg base)/3 mL nebulization soln 3 ml inhalation Q8H SOB 04/17/25 acetaminophen 325 mg tablet 650 mg (2 x 325 mg) PO Q6H PRN PRN Pain 1-10 Or Fever>100.7 #0 tabs 04/23/25 albuterol sulfate 2.5 mg/3 mL (0.083 %) solution for nebulization 2.5 mg (3 mL) inhalation Q4H PRN shortness of breath or wheezing #0 mL 04/23/25 fludrocortisone 0.1 mg tablet 0.1 mg PO BID hypotension #0 tabs 04/23/25 insulin glargine-yfgn 100 unit/mL (3 mL) subcutaneous pen 20 unit (0.2 mL) subcut QHS diabetes #0 mL 04/23/25 insulin lispro 100 unit/mL subcutaneous pen (Humalog KwikPen (U-100) Insulin) See Protocol subcut ACHS diabetes #0 mL 04/23/25 midodrine 5 mg tablet 10 mg (2 x 5 mg) PO TIDCM hypotension #0 tabs 04/23/25 nutrition tx glu intol,lac-free,soy-fiber 0.06 gram-1.2 kcal/mL liquid (Glucerna 1.2 Gonzalo) 120 ml PO TIDCM supplement #0 mL 04/23/25 Hospital Course Operations None Procedures None Summary of Care Provided Minutes Spent on Discharge: 32 Hospital Course: This 80-year-old white male was seen in the emergency room at [facility] after sustaining a syncopal episode and TCU where he was undergoing rehab services. Workup in the emergency room included labs which showed a slightly low hemoglobin at 9.6, chemistry profile was remarkable for creatinine of 1.7 and a BUN of 40, patient's troponin was elevated at 99, chest x-ray was unremarkable. It was noted that the patient's blood pressure dropped to 85/68 sitting in the emergency room, the patient was symptomatic during this. Patient was admitted to PCU, his blood pressures were monitored, he was given IV fluids without resolution of his orthostatic hypotension. Patient was seen by PT and OT, midodrine was added to the patient's medical regiment but the patient still remained orthostatically hypotensive. At that point, Florinef was added to the patient's medical regimen with some improvement in his blood pressure. On 04/23/25, patient was seen and examined: On examination he appeared in good health and spirits. Vital signs as documented. Skin warm and dry and without overt rashes. Neck without JVD, neck was supple, trachea midline, thyroid was normal. Lungs clear bilaterally, normal air movement was noted. Heart exam notable for regular rhythm, normal sounds and absence of murmurs, rubs or gallops. Abdomen unremarkable and without evidence of organomegaly, masses, or abdominal aortic enlargement. Bowel sounds are present, abdomen is not distended. Extremities nonedematous, no cyanosis was noted, no clubbing was noted. Neuro: Cranial nerves II through XII are grossly intact, no focal motor deficits were noted, sensation to light touch and pinprick intact, motor exam 5/5 throughout. Psych: Patient is alert and oriented x3, he does not appear anxious or depressed, he does not appear agitated. Patient was felt to be stable for transfer to TCU for short-term rehab services on 04/23/25 Medical Records Data Medical Nutrition Assessment Dietitian: Malnutrition Criteria Met Start: 04/20/25 14:15 Freq: Status: Active Protocol: Document 04/20/25 14:15 RMA (Rec: 04/20/25 14:16 RMA [id number]) Nutrition Malnutrition Evidence of Yes Malnutrition Exists Malnutrition ( Chronic moderate): Evidenced By Suboptimal Energy Intake (Moderate),Weight Loss ( Moderate) Clinical Problem Chronic Disease or Condition Related Malnutrition Etiology Moderate protein-calorie malnutrition in the context of chronic disease related to inadequate energy/oral intake Signs/Symptoms as evidenced by ~5% unintentional weight loss x past 1- 2 months, PO meeting less than 75% estimated nutrition needs x 2 months; BMI 23.2 Status Active Problem Recommendation Dietitian Will adjust diet to 1800 calorie/consistent Recommendations/ carbohydrate. Changes Will add 120mL glucerna shake 3 times per day w/ medpass. Trend weight and need for additional ONS. Weight / BMI Weight Weight: 65.1 kg Body Mass Index (BMI) 23.1 ABG / Lab / Microbiology Data 04/20/25 05:57 04/21/25 03:34 Laboratory: Laboratory Results - last 24 hr 04/22/25 16:52: POC Glucose 151 H 04/22/25 22:04: POC Glucose 120 H 04/23/25 06:14: POC Glucose 130 H 04/23/25 12:06: POC Glucose 231 H D/C Instructions DC O2, CPAP, BIPAP Needs Home O2 Discharge instructions: Yes Type of respiratory needs?: Oxygen Oxygen frequency: Continuous Continuous oxygen liters per minute: 2 L DC home with Oxygen: No Meaningful Use Info Meaningful Use Meaningful Use Diagnoses (Choose all that apply): None applicable Discharge Plan Admission Admit Date/Time: 04/20/25 13:48 Primary Reason for Your Visit: syncope, orthostatic hypotension Attending Provider: Luis Mccallum Primary Care Provider: Luis Johnson Consulting Providers: Kwaku Narayanan Instructions Additional Instructions / Restrictions: Monitor blood pressure closely, it may be necessary to cut back or discontinue midodrine and/or Florinef Discharge Orders/Prescriptions Prescriptions: New acetaminophen 325 mg Tablet 650 mg PO Q6H PRN PRN (Reason: Pain 1-10 Or Fever>100.7) Qty: 0 0RF albuterol sulfate 2.5 mg /3 mL (0.083 %) Solution For Nebulization 2.5 mg inhalation Q4H PRN (Reason: shortness of breath or wheezing) Qty: 0 0RF midodrine 5 mg Tablet 10 mg PO TIDCM Qty: 0 0RF fludrocortisone 0.1 mg Tablet 0.1 mg PO BID Qty: 0 0RF insulin lispro [Humalog KwikPen Insulin] 100 unit/mL Insulin Pen See Protocol subcut ACHS Qty: 0 0RF Protocol: 3. Sliding Scale Insulin Med Dosing Condition: 150-189 mg/dl = 1 unit Condition: 190-229 mg/dl = 2 units Condition: 230-269 mg/dl = 3 units Condition: 270-309 mg/dl = 4 units Condition: 310-349 mg/dl = 5 units Condition: 350-399 mg/dl = 6 units Condition: 400-449 mg/dl = 7 units Condition: Greater than 449 call physician Protocol Text: Suggested for: - Patients on Total Daily Insulin Dose of 37-55 units - Obese, infected, or steroid patients MEDIUM DOSING ALGORITHIM Glucerna 1.2 Gonzalo 0.06-1.2 gram-kcal/mL Liquid 120 ml PO TIDCM Qty: 0 0RF insulin glargine-yfgn 100 unit/mL (3 mL) Insulin Pen 20 unit subcut QHS Qty: 0 0RF Continued multivitamin [Daily Multi-Vitamin] Tablet 1 tab PO DAILY pravastatin 20 mg tablet 20 mg PO DAILY docusate sodium [Colace] 100 mg capsule 100 mg PO DAILY PRN Eliquis 5 mg Tablet 2.5 mg PO BID 30 Days Qty: 30 3RF tamsulosin 0.4 mg Capsule 0.4 mg PO DAILY@1730 30 Days Qty: 30 2RF clopidogrel 75 mg tablet 75 mg PO DAILY (DME) OXYGEN - Supplemental ([facility] INFORMATIONAL USE ONLY) Gas See Rx Instructions .ROUTE Patient Comments: 2 lpm at rest, 3 lpm on exertion, 2 lpm at HS DME company: [employer] CM Rx Instructions: As directed ipratropium-albuterol 0.5 mg-3 mg(2.5 mg base)/3 mL solution for nebulization 3 ml inhalation Q8H metoprolol succinate 25 mg tablet extended release 24 hr 12.5 mg PO BID Qty: 90 3RF Discontinued cranberry 500 mg capsule 500 mg PO DAILY Rx Instructions: administer with meals albuterol sulfate 90 mcg/actuation HFA aerosol inhaler 2 puff inhalation Q4H PRN (Reason: shortness of breath or wheezing) Qty: 3 3RF Rx Instructions: administer with spacer umeclidinium-vilanterol [Anoro Ellipta] 62.5-25 mcg/actuation blister with device 1 inh inhalation QDAY Qty: 60 3RF insulin glargine 100 UNIT/ML solution 30 unit SQ QHS Januvia 50 mg Tablet 50 mg PO DAILY insulin glargine [Lantus Solostar U-100 Insulin] 100 unit/mL (3 mL) insulin pen 30 unit subcut QHS guaifenesin [Mucinex] 600 mg tablet extended release 12hr 1,200 mg PO BID Qty: 20 0RF furosemide [Lasix] 40 mg tablet 40 mg PO DAILY Qty: 60 0RF Eucerin Cream 1 applic topical BID aspirin 81 mg tablet,chewable 1 tab PO DAILY Tradjenta 5 mg tablet 5 mg PO DAILY Referrals / Follow Up: Luis Johnson DO [Primary Care Provider] - Disposition Disposition (needs filled in before D/C Order can be placed): [facility] Facility Charges/Coding Visit Charges Inpatient E&M: 85023 Disch Hosp >30min
== END 2025-04-23 18:30 | disposition short-term general hospital (02) | DRG 312 ==
LOC: ED 10:37 → PCU 04-20 07:12
PROVIDERS: Admitting Provider Hospitalist; Emergency Provider Emergency Medicine; PCP Family Medicine; Visit Provider Internal Medicine
DX: I95.1 Orthostatic hypotension (principal); E44.0 Moderate protein-calorie malnutrition; J96.11 Chronic respiratory failure with hypoxia; N13.8 Other obstructive and reflux uropathy; I13.0 Hypertensive heart and chronic kidney disease with heart failure and stage 1 through stage 4 chronic kidney disease, or unspecified chronic kidney disease; I50.32 Chronic diastolic (congestive) heart failure; D63.1 Anemia in chronic kidney disease; I49.5 Sick sinus syndrome; E86.1 Hypovolemia; E11.22 Type 2 diabetes mellitus with diabetic chronic kidney disease; J44.9 Chronic obstructive pulmonary disease, unspecified; N18.32 Chronic kidney disease, stage 3b; I48.0 Paroxysmal atrial fibrillation; E11.51 Type 2 diabetes mellitus with diabetic peripheral angiopathy without gangrene; E78.5 Hyperlipidemia, unspecified; I25.10 Atherosclerotic heart disease of native coronary artery without angina pectoris; K21.9 Gastro-esophageal reflux disease without esophagitis; Z79.4 Long term (current) use of insulin; N40.1 Benign prostatic hyperplasia with lower urinary tract symptoms; R79.89 Other specified abnormal findings of blood chemistry; T50.2X5A Adverse effect of carbonic-anhydrase inhibitors, benzothiadiazides and other diuretics, initial encounter; Z95.1 Presence of aortocoronary bypass graft; Z92.3 Personal history of irradiation; Z68.23 Body mass index [BMI] 23.0-23.9, adult; Z79.84 Long term (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 of oral hypoglycemic drugs; Z79.01 Long term (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 of anticoagulants; Z79.02 Long term (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 of 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/antiplatelets; Z99.81 Dependence on supplemental oxygen; Z79.51 Long term (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 of inhaled steroids; Z79.899 Other long term (current) drug therapy; Z85.118 Personal history of other malignant neoplasm of bronchus and lung; Z87.891 Personal history of nicotine dependence
CPT/HCPCS: 36415; 71045; 80048; 80053; 82962; 83735; 83880; 84100; 84484; 85025; 85027; 93005; 94668; 97162; 97165; 97530; 97535; 97802; 99285; 99406; A4216

== ENCOUNTER 2025-04-23 19:21 | Inpatient (IN) | payer MEDICARE, OTHER, SELFPAY ==
[2025-04-23 19:00] VITALS: BP 164/71; PULSE 100; RESP 22; TEMP 37.1; O2SAT 89
[2025-04-23 19:14] VITALS: BMI 25.2
[2025-04-23 19:19] VITALS: PULSE 100; RESP 20; O2SAT 97
--- NOTE | 2025-04-23 21:05 | HP.PCM_ITS ---
HPI - General General Date of Admission: 04/23/25 Date of Service: 04/24/25 Chief Complaint: Here for rehabilitation. HPI Narrative PEDRO HILLMAN, is a 80 M who presents with followin04/19/2025 [facility] ED TCU resident with syncope. Lightheaded with rising from seated position, passes out. EKG sinus tachycardia, negative for nstemi, Troponin elevated, high sensitivity troponin negative. Chest X-ray shows pulmonary edema. 04/19/2025 Admit [facility]. IV fluids, hold Furosemide for syncope 2/2 orthostasis. Monitor closely with history of HFpEF. 04/20/2025 Orthostatics positive, presyncopal when stood up. Normal Saline 500cc bolus, then 75cc/hour for syncope/orthostasis/dehydration. PT/OT for debility. 04/21/2025 Lightheaded when he got up to move around with PT. Start midodrine, continue IV fluids, plan return to SNF. [place] better, but lightheaded with standing. Midodrine 10mg tid. 04/22/2025 Standing blood pressure improved to > 100 systolic blood pressure. Continue IV fluids, Midodrine 10mg tid, still orthostatic. but did OK with therapy. 04/23/2025 Admit to TCU with debility, here for rehabilitation, strengthening, prior to discharge home alone. [facility] Medical History Presence of cardiac pacemaker Peripheral arterial disease Other persistent atrial fibrillation New onset atrial flutter COVID Wears hearing aid in both ears Former smoker Coronary artery disease Peripheral vascular occlusive disease BPH (benign prostatic hyperplasia) Chronic kidney disease, stage 3 Atherosclerosis of coronary artery of [place] heart without angina pectoris Hyperlipidemia Lower extremity edema Venous insufficiency Malnutrition Delayed wound healing Osteomyelitis of ankle, left, acute Ulcer of left lower extremity with fat layer exposed Type 2 diabetes mellitus with diabetic polyneuropathy Anemia GERD (gastroesophageal reflux disease) Hypertension Home Medications ?Medication ?Instructions ?Recorded ?Last Taken ?Type multivitamin (Daily Multi-Vitamin 1 tab PO DAILY suppl ement 06/28/20 03/03/25 History tablet) pravastatin 20 mg tablet 20 mg PO DAILY hyperlipidemi a 01/17/22 03/03/25 History docusate sodium 100 mg capsule 100 mg PO DAILY PRN sto ol softner 07/25/23 Unknown History (Colace) apixaban 5 mg tablet (Eliquis) 2.5 mg (1/2 x 5 mg) PO BID blood 03/09/25 Unknown Rx thinner 30 days #30 tabs tamsulosin 0.4 mg capsule 0.4 mg PO DAILY@1730 prostat e 30 03/09/25 Unknown Rx days #30 caps metoprolol succinate 25 mg 12.5 mg (1/2 x 25 mg) PO BI D blood 04/03/25 Unknown Rx tablet,extended release 24 hr thinner #90 tabs clopidogrel 75 mg tablet 75 mg PO DAILY anti platelet 04/05/25 Unknown History OXYGEN - Supplemental ([facility] 04/09/25 Unknown History INFORMATIONAL USE ONLY) ipratropium 0.5 mg-albuterol 3 mg 3 ml inhalation Q8H SOB 04/17/25 Unknown History (2.5 mg base)/3 mL nebulization soln acetaminophen 325 mg tablet 650 mg (2 x 325 mg) PO Q6H PRN PRN 04/23/25 Unknown Rx Pain 1-10 Or Fever>100.7 #0 tabs albuterol sulfate 2.5 mg/3 mL 2.5 mg (3 mL) inhalation Q4H PRN 04/23/25 Unknown Rx (0.083 %) solution for nebulization shortness of breat h or wheezing #0 mL fludrocortisone 0.1 mg tablet 0.1 mg PO BID hypotensio n #0 tabs 04/23/25 Unknown Rx insulin glargine-yfgn 100 unit/mL 20 unit (0.2 mL) sub cut QHS 04/23/25 Unknown Rx (3 mL) subcutaneous pen diabetes #0 mL insulin lispro 100 unit/mL See Protocol subcut ACHS di abetes 04/23/25 Unknown Rx subcutaneous pen (Humalog KwikPen #0 mL (U-100) Insulin) midodrine 5 mg tablet 10 mg (2 x 5 mg) PO TIDCM Unknown Rx hypotension #0 tabs nutrition tx glu 120 ml PO TIDCM supplement # 0 mL 04/23/25 Unknown Rx intol,lac-free,soy-fiber 0.06 gram-1.2 kcal/mL liquid (Glucerna 1.2 Gonzalo) Allergy/AdvReac Type Severity Reaction Status Date / Time ibuprofen Allergy Severe Facial Verified 04/19/25 08:24 swelling (angioedema) Family History Brother Diabetes Father , Age 72 stomach ulcers No problems noted. Mother , Age 71 pancreatitis No problems noted. Sister , hepatitis C No problems noted. Surgical History History of permanent cardiac pacemaker placement H/O aorto-femoral bypass (~2009) History of transurethral resection of prostate Presence of aortocoronary bypass graft (~03/2013) Social History household members: none Smoking Status: Former smoker Tobacco: How many years used: 30 how long ago did patient quit smokin years ROS Constitutional Constitutional: Reports weakness; Denies chills, fever(s) or weight gain ENT HEENT: Denies headache(s), nasal congestion or nasal discharge Cardiovascular Cardiovascular: Denies chest pain or palpitations Respiratory/Chest Respiratory/Chest: Denies cough, excessive phlegm production or shortness of breath with exertion Gastrointestinal Gastrointestinal: Denies abdominal pain, nausea or vomiting Genitourinary Genitourinary: Denies dysuria Musculoskeletal Musculoskeletal: Denies joint pain or joint swelling Integumentary Integumentary: Denies rash or wounds Neurologic Neurologic: Denies focal weakness, numbness or tingling Psychiatric Psychiatric: Denies anxiety, auditory hallucinations, depression, homicidal ideation or suicidal ideation Vital Signs Vital Signs Vital Signs: 04/23/25 19:00 Temperature 98.8 F Temperature Source Temporal Pulse Rate 100 Respiratory Rate 22 H Blood Pressure 164/71 H Blood Pressure Mean 102 Blood Pressure Source Monitor Blood Pressure Position Semi-Fowlers Blood Pressure Location Left Arm Pulse Ox 89 Oxygen Delivery Method Nasal Cannula Oxygen Flow Rate (L/min) 3 Weight Weight: 71.35 kg Body Mass Index (BMI) 25.2 Physical Exam Const alert General Appearance: cooperative HEENT normocephalic Eyes PERRL and EOMs intact bilaterally Neck supple, no JVD and no carotid bruits Resp normal respiratory effort, normal air movement and clear to auscultation bilaterally Auscultation: diminished lung sounds bilateral lower Cardio regular rate and regular rhythm GI normal to inspection, nondistended, normoactive bowel sounds, non-tender and non-distended Extremity normal capillary refill General Extremity: Negative for edema Skin no rashes or lesions noted General Skin Exam: no breakdown Psych affect normal Appearance: appropriate Assessment & Plan Assessment/Plan (1) Debility: (2) Syncope: (3) Orthostatic hypotension: (4) Dehydration: (5) (HFpEF) heart failure with preserved ejection fraction: (6) Recurrent right pleural effusion: (7) Tachy-brittany syndrome: (8) COPD (chronic obstructive pulmonary disease): QUALIFIERS: COPD type: emphysema Emphysema type: centrilobular Qualified Code(s): J43.2 - Centrilobular emphysema (9) Atrial fibrillation: (10) PAOD (peripheral arterial occlusive disease): (11) Type 2 diabetes mellitus with hyperglycemia: (12) Hyperlipidemia: QUALIFIERS: Hyperlipidemia type: unspecified Qualified Code(s): E78.5 - Hyperlipidemia, unspecified (13) BPH (benign prostatic hyperplasia): PLAN: Plan 80 year old male with below past medical history hospitalized for syncope 2/2 orthostatic hypotension 2/2 autonomic dysfunction, no response to IV hydration, admitted to TCU with debility, here for rehabilitation, strengthening, prior to discharge home alone. * Debility - PT/OT. * Pain - Tylenol 1000mg q6 prn pain (1-10). * Bowel - senna/colace 1 tablet bid, Magnesium citrate 150mL daily prn. * Adult immunization - Administer pneumonia vaccine, covid vaccine, flu vaccine as appropriate. * DVT prophylaxis - Eliquis. * COPD - Duoneb 3mL neb q8, Albuterol 2.5mg neb q4 prn. * Atrial fibrillation - Metoprolol succinate 12.5mg bid, Eliquis 2.5mg bid. * PAOD - Plavix 75mg daily, Eliquis 2.5mg bid. * Orthostatic hypotension - Fludrocortisone 0.1mg bid, Midodrine 10mg tid. * Nutrition - Glucerna shake 120mL tidcm, MVI 1 tablet daily. * Diabetes Mellitus II - Glargine 20 units qhs. * Skin irritation - Calmoseptine topical bid. * Tinea Corporis - Nystatin powder topical bid. * Hyperlipidemia - Pravastatin 20mg qhs. * BPH - Tamsulosin 0.4mg daily.
[2025-04-23] MEDS: Senna/Docusate Sodium 1 Tablet PO (21:59)
[2025-04-23] MEDS: Insulin Glargine-YFGN 100 UNIT/ML Pen 20 UNIT SC (21:59)
[2025-04-23] MEDS: APIXABAN 2.5 MG TABLET (WCH) PO (21:59)
[2025-04-23 22:01] VITALS: BP 144/62; PULSE 97
[2025-04-23] MEDS: Metoprolol(XL)Succ 25 MG Tablet 12.5 MG PO (22:01)
--- OUTSIDE RECORDS SUMMARY | 2025-04-23 22:17 | XMS RPT_ITS | CCD ---
Author Organization [facility] CliniSyvt Care Team Providers [employer] Sales Representative Name Role Phone Dr. Tonio Fajardo Primary Care Provider [phone] Dr. Tonio Fajardo Referring Provider [phone] Issa Looney Attending Provider [phone] Tonio Fajardo DO Primary Care Provider Dr. Tyrell Uriarte Attending Provider Dr. Tonio Fajardo Primary Care Provider [phone] Dr. Tonio Fajardo Referring Provider Brittny DERRICK ENGINEER, DERRICK ENGINEER-C Lorie Attending Provider Dr. Russ Zamora Attending Provider Renard DERRICK ENGINEER, DERRICK ENGINEER-C Bonny E Attending Provider [phone] Renard DERRICK ENGINEER, DERRICK ENGINEER-C Bonny E Referring Provider Renard DERRICK ENGINEER, DERRICK ENGINEER-C Bonny E Other Provider Dr. Srini [...] Kenyon Flores Referring Provider Unava mp Mart DERRICK ENGINEER, DERRICK ENGINEER-C Lorie Attending Provider Dr. Russ Zamora Attending Provider Renard DERRICK ENGINEER, DERRICK ENGINEER-C Bonny E Attending Provider Renard DERRICK ENGINEER, DERRICK ENGINEER-C Bonny E Referring Provider Renard DERRICK ENGINEER, DERRICK ENGINEER-C Bonny E Other Provider Dr. Srini Choi Attending Provider Dr. Srini Choi Referring Provider Dr. Srini Choi Other Provider Dr. Mateo Shahid Attending Provider Roof DERRICK ENGINEER, DERRICK ENGINEER-C Iker Stephens Attending Provider Tonio Fajardo DO Primary Care Provider STEVEN RODRIGUEZ Referring Unavailable TONIO FAJARDO Primary Care Unavailable TONIO FAJARDO Primary Care Unavailable Dr. Tonio Fajardo Primary Care Provider Dr. Tonio Fajardo Referring Provider Dr. Tonio Fajardo Primary Care Provider Renard DERRICK ENGINEER, DERRICK ENGINEER-C Bonny E Attending Provider Renard DERRICK ENGINEER, DERRICK ENGINEER-C Bonny E Referring Provider Renard DERRICK ENGINEER, DERRICK ENGINEER-C Bonny E Other Provider Dr. Tonio Fajardo Referring Provider Dr. Russ Zamora Attending Provider Dr. Tonio Fajardo Primary Care Provider Dr. Srini Choi Attending Provider Dr. Srini Choi Referring Provider Renard DERRICK ENGINEER, DERRICK ENGINEER-C Bonny E Attending Provider Renard DERRICK ENGINEER, DERRICK ENGINEER-C Bonny E Referring Provider [phone] Renard DERRICK ENGINEER, DERRICK ENGINEER-C Bonny E Other Provider Dr. Tonio Fajardo Referring Provider Dr. Russ Zamora Attending Provider Dr. Tonio Fajardo Primary Care Provider Renard DERRICK ENGINEER, DERRICK ENGINEER-C Bonny E Attending Provider Renard DERRICK ENGINEER, DERRICK ENGINEER-C Bonny E Referring Provider Renard DERRICK ENGINEER, DERRICK ENGINEER-C Bonny E Other Provider Dr. Tonio Fajardo Referring Provider Dr. Russ Zamora Attending Provider Dr. Srini Choi Attending Provider Dr. Tyrell Uriarte Attending Provider Dr. Tonio Fajardo Primary Care Provider Renard DERRICK ENGINEER, DERRICK ENGINEER-C Bonny E Attending Provider [phone] Renard DERRICK ENGINEER, DERRICK ENGINEER-C Bonny E Referring Provider [phone] Renard DERRICK ENGINEER, DERRICK ENGINEER-C Bonny E Other Provider Dr. Tonio Fajardo Primary Care Provider Renard DERRICK ENGINEER, DERRICK ENGINEER-C Bonny E Attending Provider Renard DERRICK ENGINEER, DERRICK ENGINEER-C Bonny E Referring Provider Renard DERRICK ENGINEER, DERRICK ENGINEER-C Bonny E Other Provider [phone] Dr. Tonio Fajardo Primary Care Provider Renard DERRICK ENGINEER, DERRICK ENGINEER-C Bonny E Attending Provider Renard DERRICK ENGINEER, DERRICK ENGINEER-C Bonny E Referring Provider [phone] Renard DERRICK ENGINEER, DERRICK ENGINEER-C Bonny E Other Provider Dr. Tonio Fajardo Referring Provider Dr. Tonio Fajardo Primary Care Provider Renard DERRICK ENGINEER, DERRICK ENGINEER-C Bonny E Attending Provider Renard DERRICK ENGINEER, DERRICK ENGINEER-C Bonny E Referring Provider [phone] Renard DERRICK ENGINEER, DERRICK ENGINEER-C Bonny E Other Provider Dr. Tonio Fajardo Primary Care Provider Renard DERRICK ENGINEER, DERRICK ENGINEER-C Bonny E Attending Provider Renard DERRICK ENGINEER, DERRICK ENGINEER-C Bonny E Referring Provider [phone] Renard DERRICK ENGINEER, DERRICK ENGINEER-C Bonny E Other Provider Dr. Tonio Fajardo Primary Care Provider Renard DERRICK ENGINEER, DERRICK ENGINEER-C Bonny E Attending Provider Renard DERRICK ENGINEER, DERRICK ENGINEER-C Bonny E Referring Provider Renard DERRICK ENGINEER, DERRICK ENGINEER-C Bonny E Other Provider Dr. Tonio Fajardo Referring Provider Dr. Russ Zamora Attending Provider Dr. Tonio Fajardo Primary Care Provider Renard DERRICK ENGINEER, DERRICK ENGINEER-C Bonny E Attending Provider Renard DERRICK ENGINEER, DERRICK ENGINEER-C Bonny E Referring Provider [phone] Renard DERRICK ENGINEER, DERRICK ENGINEER-C Bonny E Other Provider Dr. Francisco Javier Lozada Attending Provider Dr. Joaquim Suárez Referring Provider Dr. Tonio Fajardo Primary Care Provider Renard DERRICK ENGINEER, DERRICK ENGINEER-C Bonny E Attending Provider [phone] Renard DERRICK ENGINEER, DERRICK ENGINEER-C Bonny E Referring Provider [phone] Renard CAMPUZANO, DERRICK ENGINEER-C Bonny Melendez Other Provider Dr. Tonio Fajardo Referring Provider Dr. Rsus Zamora Attending Provider Dr. Francisco Javier Lozada Attending Provider Dr. Joaquim Suárez Referring Provider Dr. Tonio Fajardo Primary Care Provider Brittny DERRICK ENGINEER, DERRICK ENGINEER-C Lorie Attending Provider RICKIE Alejandra Attending [...] Referring Provider Brittny CAMPUZANO-CLorie Attending Provider Brittny DERRICK ENGINEER-C, Lorie Referring Provider Brittny DERRICK ENGINEER-C, Lorie Other Provider [phone] Tyrell Uriarte DO Attending Provider [phone] Tonio Fajardo DO Attending Provider Sera STRATTON, Dr. Solano Attending Provider Sera STRATTON, Dr. Solano Referring Provider Scotty MCGEE, Dr. Elizalde Primary Care Provider [place] , Dr. Milligan Other Provider Scotty MCGEE, [...] Shadi STRATTON, Dr. Graham Other Provider Michael DERRICK ENGINEER-C, Iker Stephens Other Provider Leslie Alejandra Other Provider Tadeo Fink Other Provider Grzegorz STRATTON, Dr. Leos Other Provider Peter STRATTON, Dr. Amador Attending Provider Jailyn STRATTON, Dr. Dorsey Attending Provider Florencio STRATTON, Dr. Johnson Emergency Provider [facility] , Dr. Elizadle Referring Provider Leslie Alejandra Attending Provider Florencio STRATTON, Dr. Johnson Attending Provider [facility] , Dr. Elizalde Attending Provider Leslie Alejandar Referring Provider Carmelina Parra Attending Provider Unavailable [...] Provider Shadi STRATTON, Dr. Graham [facility] Stephens Other Provider Leslie Alejandra Other Provider Tadeo Fink Other Provider Grzegorz STRATTON, Dr. Leos Other Provider Peter STRATTON, Dr. Amador Attending Provider Jailyn STRATTON, Dr. Dorsey Attending Provider Florencio STRATTON, Dr. Johnson Attending Provider Florencio STRATTON, Dr. Johnson Emergency Provider Scotty MCGEE, Dr. Elizalde Referring Provider Leslie Alejandra Attending Provider Scotty DO, Dr. Elizalde Attending Provider Leslie Alejandra Referring [...] Provider Dr. Daniel Brownlee DO Emergency Provider [phone] TONIO FAJARDO DO Primary Care Physician Dr. Daniel Brownlee DO Attending Provider Geovani STRATTON, Dr. Valdez Lu Referring Provider Dr. Casper Iniguez DO Emergency Provider Dr. Casper Iniguez DO Emergency Provider Lady MCGEE, Dr. Ames Admit Provider Lady MCGEE, Dr. Ames Attending Provider AFUA MCGEE, DR RUBY Attending Unavailable HALLIE STRATTON, DR DAVID Ovalle Admitting Unavailable ABBI CARMEN MD, V Consulting Unavailable SCOTTY MCGEE, DR TONIO Ovalle Primary Care Unavailab le Scotty, Tonio Primary Care Unavailable Joaquim Suárez Referring Unavailable Joaquim Suárez Attending Unavailable Scotty, Tonio Primary Care Unavailable Nicola Lindsey Admitting Unavailable Deric Lantigua Attending Unavailable Nicola Lindsey Consulting Unavailable Paris Tiwari Consulting Unavailable Mariano Hawleymaalex Consulting Unavailable Nicolette Mcdonald Consulting Unavailable Peter, Marjorie Consulting Unavailable Martin Vivas Consulting Unavailable Jose Lai Consulting Unavailable Aayush, Issa Consulting Unavailable Chago Miller Consulting Unavailable Willian Glaser Consulting Unavailable Orly Mitchell Consulting UnavailReinaldo Lima Consulting Unavailable Santos Hsu Consulting Unavailable Michael DERRICK ENGINEER, Iker Stephens Consulting Unavailable Corina DAMIAN, Leslie Cruz Consulting Unavail able Tadeo Thakkar Consulting Unavailable Manjit, Jayaprakas Consulting Unavailable Nicola Roman Attending Unavailable Nicola Lindsey Admitting Unavailable Scotty, Tonio Primary Care Unavailable Nicola Lindsey Consulting Unavailable Grzegorz, Deric Consulting Unavailable Aayush, [place] Consulting Unavailable Scotty, Tonio Primary Care Unavailable Geovani, Valdez Chi Admitting Unavailable Geovani, Valdez Chi Attending Unavailable Aayush, [place] Attending Unavailable Corina PA, Leslie M Referring Unavail able Scotty, Tonio Primary Care Unavailable Scotty, Tonio Primary Care Unavailable Peter, Marjorie Attending Unavailable Carmelina Parra Referring Unavailable Carmelina Parra Attending Unavailable Scotty, Tonio Primary Care Unavailable Scotty, Tonio Primary Care Unavailable Joaquim Suárez Attending Unavailable Joaquim Suárez Referring Unavailable Deric Lantigua Attending Unavailable Manjit, Jayaprakas Consulting Unavailable de LosNicola nam Admitting Unavailable Scotty, Tonio Primary Care Unavailable de Nicola Madison Consulting Unavailable Grzegorz, Deric Consulting Unavailable Nicola Roman Attending Unavailable Nicola Roman Consulting Unavailable Scotty, Tonio Primary Care Unavailable Praangelo, Russ Referring Unavailable Praangelo, Russ Attending Unavailable Prah, Russ Referring Unavailable Prah, Russ Attending Unavailable Scotty, Tonio Primary Care Unavailable Scotty, Tonio Attending Unavailable Scotty, Tonio Primary Care Unavailable Scotty, Tonio Primary Care Unavailable Daniel Brownlee Attending Unavailable Alex Matias Attending Unavailable Scotty, Tonio Primary Care Unavailable Leslie Alejandra Referring Unavail able Leslie Alejandra Attending Unavail able Scotty, Tonio Primary Care Unavailable Prah, Russ Referring Unavailable Scotty, Tonio Primary Care Unavailable Sera, Russ Attending Unavailable Srini Choi Consulting Unavailable Aayush, [place] Consulting Unavailable Willian Glaser Attending Unavailable Nicola Lindsey Consulting Unavailable Nicola Lindsey Admitting Unavailable Scotty, Tonio Primary Care Unavailable Amrcamila, Ahmed Consulting Unavailable Jagisela Ahmad Consulting Unavailable Nicolette Mcdonald Consulting Unavailable Peter Marjorie Consulting Unavailable Martin Vivas Consulting Unavailable Jose Lai Consulting Unavailable Aayush, [place] Consulting Unavailable Chago Miller Consulting Unavailable Willian Glaser Consulting Unavailable Orly Mitchell Consulting UnavailReinaldo Lima Consulting Unavailable Santos Hsu Consulting Unavailable Iker Rodriguez NP Consulting Unavailable Lesile Alejandra Consulting Unavail able Tadeo Thakkar Consulting Unavailable Grzegorz, Edric Consulting Unavailable PraRuss stephens Attending Unavailable Scotty, Tonio Primary Care Unavailable Scotty, Tonio Referring Unavailable Nicola Lindsey Attending Unavailable Scotty, Tonio Primary Care Unavailable ScottyTonio Attending Unavailable Scotty, Tonio Referring Unavailable Aayush, Issa Attending Unavailable Scotty, Tonio Primary Care Unavailable Mart DERRICK ENGINEER, Lorie Referring Unavailable Brittny DERRICK ENGINEER, Lorie Consulting Unavailable Tyrell Uriarte Attending Unavailable Kwaku Narayanan Consulting Unavailable Kwaku Narayanan Admitting Unavailable Scotty, Tonio Primary Care Unavailable Tonio Mccallum Attending Unavailable MahendraeletsTonio liriano Consulting Unavailable Mary Jane Hsue Attending Unavailable Scotty, Tonio Primary Care Unavailable Carol Sousa Attending Unavailable Scotty, Tonio Referring Unavailable Scotty, Tonio Referring Unavailable Leslie Alejandra Attending Unavail able Scotty, Tonio Primary Care Unavailable Issa Looney Attending Unavailable Scotty, Tonio Primary Care Unavailable AayushAstonIssa Attending Unavailable Scotty, Tonio Primary Care Unavailable Scotty, Tonio Primary Care Unavailable Leslie Alejandra Attending Unavail able Scotty, Tonio Referring Unavailable Scotty, Tonio Primary Care Unavailable Brittny DERRICK ENGINEER, Lorie Attending Unavailable Scotty, Tonio Referring Unavailable Scotty, Tonio Primary Care Unavailable Russ Zamora Attending Unavailable Scotty, Tonio Referring Unavailable Deric Lantigua Attending Unavailable Marjorie Green Attending Unavailable Nicola Lindsey Attending Unavailable Kwaku Narayanan Consulting Unavailable Kwaku Narayanan Attending Unavailable Scotty, Tonio Primary Care Unavailable Kwaku Narayanan Admitting Unavailable Scotty, Tonio Primary Care Unavailable Carol Sousa Attending Unavailable Scotty, Tonio Referring Unavailable Scotty, Tonio Primary Care Unavailable Geovani, Valdez Chi Attending Unavailable Geovani, Valdez Chi Referring Unavailable Geovani, Valdez Chi Admitting Unavailable Scotty, Tonio Primary Care Unavailable Leslie Alejandra Referring Unavail able Leslie Alejandra Attending Unavail able Scotty, Tonio Primary Care Unavailable Brittny DERRICK ENGINEER, Lorie Referring Unavailable Brittny DERRICK ENGINEER, Lorie Attending Unavailable Dr. Kwaku Narayanan DO Other Provider Dr. Tonio Mccallum DO Attending Provider Dr. Tonio Mccallum DO Other Provider Allergies Allergy Classification Reported Allergen(s) Allergy Type Date of Onset Reaction(s) Facility (20 sources) Ibuprofen; Translations: [IBUPROFEN] Drug Allergy 2 Shortness of Breath [facility] Work Phone: (1 source) Ibuprofen Drug Allergy 5 [facility] Repository Medications Current Medications Medication Drug Class(es) Dates Sig (Normalized) Sig (Original) acetaminophen 325 mg oral tablet (20 sources) Start: 04-23-2025 Start: 02-07-2014 End: 11-19-2019 albuterol 0.83 mg/ml inhalat ion solution (20 sources) beta2-Adrenergic Agonist Start: 04-23-2025 Start: 10-31-2023 End: 04-23-2025 Start: 10-31-2023 End: 10-23-2024 Albuterol Sulfate 90 mcg/act uation HFA aerosol inhaler Discontinued 2 NMA INHALATION Q4H as needed for shortness of breath or wheezing 3 February 15, 2024 11:25am October 23, 2024 3:35pm administer with spacer Start: 10-31-2023 take 1 puff(s) by in halation every four hours Albuterol Sulfate Active 2 PUFF INHALATION Q4H October 31, 2023 12:00am administer with spacer Albuterol / Ipratropium (20 sources) Anticholinergic, beta2-Adrenergic [...] Fills: 1 Fills Dispensed: 0 Start: 04-17-2025 End: 04-23-2025 Start: 08-22-2017 End: 07-26-2023 Comment on above: [...] 27, 2019 12:36pm take 1 capsule by [facility] once daily cholecalciferol, vitamin D3, [...] 1 Fills Dispensed: 0 Start: 07-25-2023 End: 04-23-2025 Start: 07-25-2023 Start: 07-25-2023 take 1 capsule [...] Start: 04-14-2022 take 1 capsule by mo uth once daily as needed Docusate Sodium (Colace) 100 mg Capsule Active 100 MG PO DAILY NEEDED April 14, 2022 12:00am fish oil/borage/flax/om3,6,9 1 ([place] 3-6-9 COMPLEX ORAL) (5 sources) fish oil/borage/ flax/om3,6,9 1 (OMEGA 3-6-9 COMPLEX ORAL) Take by mouth. Active fish oil/borage/ flax/om3,6,9 1 (OMEGA 3-6-9 COMPLEX ORAL) Take by mouth. 0 Active Comment on above: Take by mouth. Fish,Bora,Flax Oils-Om3,6,9no1 ([place] 3-6-9) 1,200 mg Capsule (8 sources) Start: 11-02-2021 take 1 capsule by mouth twice daily Fish,Bora,Flax Oils-Om3,6,9no1 ([place] 3-6-9) 1,200 mg Capsule Active 1 CAP PO TWICE A DAY November 02, 2021 1:31pm Start: 11-02-2021 take 1 capsule by mo uth twice daily Fish,Bora,Flax Oils-Om3,6,9no1 ([place] 3-6-9) 1,200 mg Capsule Active 1 CAP PO TWICE A DAY November 02, 2021 12:00am fludrocortisone acetate 0.1 mg oral tablet (1 source) Start: 04-23-2025 furosemide 40 mg oral tablet (10 sources) Loop Diuretic Start: 04-13-2025 Lasix 40 mg or al tablet Dose : 40 mg = 1 tab(s), Oral, qDay, 0 Refill(s) Start Date: 04/13/25 Status: Ordered Medication Dispense Status: Completed Total Allowed Fills: 1 Fills Dispensed: 0 Start: 04-08-2025 End: 04-23-2025 glyBURIDE 2.5 mg oral tablet (13 sources) [...] Fills: 1 Fills Dispensed: 0 Start: 04-08-2025 End: 04-23-2025 Start: 10-23-2024 End: 03-09-2025 take 1 tablet [...] Fills: 1 Fills Dispensed: 0 Start: 04-05-2025 End: 04-23-2025 Start: 03-26-2022 LANTUS SOLOSTA R U-100 INSULIN [...] U SQ DAILY November 19, 2019 12:00am 3 ml insulin lispro 100 unt/ml pen injector (1 source) Insulin Analog Start: 04-23-2025 Magic Mouth Wash (Bmx) (6 sources) Start: [...] 24 hr Discontinued 12.5 mg PO DAILY 3 August 06, 2020 9:55am January 06, 2021 2:32pm Start: 06-28-2020 End: 01-06-2021 take 12.5 mg by mouth once daily Metoprolol Succinate Discontinued 12.5 MG PO DAILY 90 August 06, 2020 9:55am January 06, 2021 2:32pm Start: 06-18-2013 End: 11-19-2019 Start: 06-18-2013 End: 11-19-2019 midodrine hydrochloride 5 mg oral tablet (1 source) alpha-Adrenergic Agonist Start: 04-23-2025 Multi-Braden (1 source) Start: 04-13-2025 take 1 [...] Inhibitor Start: 01-11-2022 Start: 12-03-2013 End: 06-27-2019 tamsulosin hydrochloride 0.4 mg oral capsule (20 sources) alpha-Adrenergic Josselyn Start: 03-09-2025 Start: 03-21-2017 End: 03-06-2018 Start: 03-21-2017 End: 03-06-2018 Tamsulosin 0.4 MG capsule Di scontinued March 21, 2017 12:00am March 06, 2018 3:46pm Start: 08-25-2013 End: 11-26-2013 Umeclidinium-Vilanterol (Ano ro Ellipta) 62.5-25 mcg/actuation blister with device (6 sources) Start: 10-23-2024 Umeclidinium-V ilanterol (Anoro Ellipta) 62.5-25 mcg/actuation blister with device Active 1 NMA INHALATION daily 60 October 23, 2024 1:00am copd (20 sources) Start: 04-23-2025 Start: 04-17-2025 End: 04-23-2025 Start: 04-17-2025 Start: 04-09-2025 Start: 03-09-2025 End: 04-12-2025 Start: 03-09-2025 Start: 10-23-2024 Start: 10-23-2024 End: 03-09-2025 Start: 06-28-2020 Start: 11-19-2019 End: 04-23-2025 Start: 11-19-2019 Start: 06-27-2019 End: 11-19-2019 Start: 03-21-2017 End: 11-19-2019 Start: 12-03-2013 End: 03-21-2017 Completed/Discontinued Medications Medication Drug Class(es) Dates Sig (Normalized) Sig (Original) amoxicillin 500 mg oral tablet (14 sources) Penicillin-class Antibacterial Start: 03-15-2025 End: 04-05-2025 [...] End: 03-21-2017 cefdinir 300 mg oral capsule (9 sources) Cephalosporin Antibacterial Start: 04-08-2025 End: 04-17-2025 [...] on above: Take 1 capsule by mo [facility] three times daily for 10 days. [...] hydrochloride 120 mg extended release oral capsule (15 sources) Calcium Channel Josselyn Start: 03-09-2025 End: 04-08-2025 diphenhydrAMINE hydrochloride 25 mg oral capsule (20 sources) Histamine-1 Receptor Antagonist Start: 12-03-2013 End: 03-21-2017 doxycycline hyclate 100 mg oral capsule (19 sources) Tetracycline-class Drug Start: 04-01-2024 End: 09-25-2024 dutasteride 0.5 mg oral capsule (20 sources) 5-alpha Reductase Inhibitor Start: 08-25-2013 End: 11-26-2013 Eucerin topical cream (1 source) Start: 04-17-2025 Eucerin topica l cream Apply 1 katia, Topical, BID, 0 Refill(s), Cream, 71.6 Start Date: 04/17/25 Status: Ordered Medication Dispense Status: Completed Total Allowed Fills: 1 Fills Dispensed: 0 Fish Oil-Fat Acid Comb.8-Hb137 ([place] 3-6-9 1,200 Mg Softgel) 1,200 MG capsule (20 sources) Start: 12-03-2013 End: 03-21-2017 Fish Oil-Fat Acid Comb.8-Hb137 ([place] 3-6-9 1,200 Mg Softgel) 1,200 MG capsule Discontinued 1000 MG PO TWICE A DAY December 03, 2013 11:07am March 21, 2017 2:47pm Start: 12-03-2013 End: 03-21-2017 Fish Oil-Fat Acid Comb.8-Hb1 37 ([place] 3-6-9 1,200 Mg Softgel) 1,200 MG capsule Discontinued 1000 mg PO TWICE A DAY December 03, 2013 12:00am March 21, 2017 2:47pm Start: 12-03-2013 End: 03-21-2017 Fish Oil-Fat Acid Comb.8-Hb1 37 ([place] 3-6-9 1,200 Mg Softgel) 1,200 MG capsule Discontinued 1000 MG PO TWICE A DAY December 02, 2013 11:00pm March 21, 2017 1:47pm Start: 12-03-2013 End: 03-21-2017 Fish Oil-Fat Acid Comb.8-Hb1 37 ([place] 3-6-9 1,200 Mg Softgel) 1,200 MG capsule [...] 21, 2017 12:00am November 19, 2019 3:48pm Cragqxrwppc-Pmxetrxag-Qnwnqw er (19 sources) Start: 02-15-2024 End: 09-25-2024 Start: 02-15-2024 End: 09-25-2024 Ydojhvsbtrt-Hyzpxyymw-Awnvuq er (Trelegy Ellipta) 200-62.5-25 mcg blister with device Discontinued 1 NMA INHALATION DAILY 3 February 15, 2024 12:00am September 25, 2024 2:02pm Start: 02-15-2024 End: 09-25-2024 Damqqigcqll-Cygeefjij-Ffftoo er (Trelegy Ellipta) 200-62.5-25 mcg blister with [...] August 25, 2013 10:01am lactobacillus acidophilus 10 [id number] unt oral capsule (20 sources) Start: 05-24-2022 [...] sources) Dipeptidyl Peptidase 4 Inhibitor Start: 04-19-2025 End: 04-23-2025 Start: 08-22-2017 End: 10-24-2018 lisinopril 2.5 mg [...] 06-18-2013 End: 08-25-2013 potassium chloride 20 meq extended release oral tablet (20 sources) Start: 06-18-2013 End: 08-25-2013 predniSONE 20 mg oral tablet (9 sources) Start: 04-08-2025 End: 04-17-2025 SITagliptin 50 mg oral table t (20 sources) Dipeptidyl Peptidase 4 Inhibitor Start: 11-02-2021 End: 04-23-2025 Start: 02-17-2014 End: 04-08-2014 Umeclidinium-Vilanterol (20 sources) Anticholinergic, beta2-Adrenergic Agonist Start: 10-23-2024 End: 04-23-2025 Start: 10-23-2024 Start: 10-23-2024 Umeclidinium-V ilanterol (Anoro [...] INH INHALATION DAILY July 25, 2023 1:00am Problems Active Problems Problem Classification Problem Date [...] Coronary atherosclerosis; Translations: [Atherosclerotic heart disease of [place] coronary artery without angina pectoris] Onset: 04-10-2025 [...] Onset: 04-03-2025 03-06-2025 Chronic Hyperplasia of prostate (20 sources) Benign prostatic hyperplasia; Translations: [Benign prostatic [...] use of anticoagulants] 03-04-2025 Episodic Other aftercare (14 sources) Long-term current use of drug therapy; 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: [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/antipl atelets] 03-15-2025 Episodic Other aftercare (1 source) 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; Translations: [jail (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 of anticoagulants] Onset: 04-15-2025 Episodic Other circulatory disease (1 source) Other specified peripheral vascular diseases; Translations: [Other specified peripheral vascular diseases] Onset: 07-07-2024 Chronic Other circulatory disease (1 source) Orthostatic hypotension; Translations: [Orthostatic hypotension] Onset: 04-23-2025 Episodic Other circulatory disease (2 sources) Orthostatic hypotension; Translations: [Orthostatic hypotension] 04-19-2025 Episodic Other diseases of veins and lymphatics (20 sources) Peripheral venous insufficiency; Translations: [Venous insufficiency (chronic) (peripheral)] 04-28-2020 Episodic Other diseases of veins and lymphatics (20 sources) Venous insufficiency (chronic) (peripheral); Translations: [Venous (peripheral) insufficiency, unspecified] Episodic Other hematologic conditions (20 sources) Increased serum protein level; Translations: [Abnormality [...] dyspnea] 07-25-2023 Episodic Other lower respiratory disease (20 sources) Nodule of lung; Translations: [Solitary pulmonary [...] system] 03-04-2025 Episodic Other lower respiratory disease (20 sources) Respiratory insufficiency; Translations: [Other abnormalities of [...] 04-13-2025 03-04-2025 Episodic Other upper respiratory disease (14 sources) Anterior epistaxis; Translations: [Epistaxis] 03-15-2025 Episodic [...] caused by tuberculosis or sexually transmitted disease) (15 sources) Pneumonia; Translations: [Pneumonia, unspecified organism] Onset: 04-13-2025 04-13-2025 Episodic Residual codes; unclassified (20 sources) Edema of lower extremity; Translations: [Localized edema] 05-22-2020 Episodic Residual codes; unclassified (20 sources) Localized edema; Translations: [Localized edema] 12-21-2021 Episodic Residual codes; unclassified (20 sources) Localized edema; Translations: [Edema] Episodic Respiratory failure; insufficiency; arrest (adult) (18 sources) Chronic hypoxemic respiratory failure; Translations: [Chronic respiratory failure with hypoxia] Onset: 04-13-2025 03-15-2025 Chronic Respiratory failure; insufficiency; arrest (adult) (17 sources) Acute respiratory failure; Translations: [Acute respiratory failure with hypoxia] 04-10-2025 Episodic Septicemia (except in labor) (2 sources) Sepsis; Translations: [Sepsis, unspecified organism] Onset: 04-13-2025 Episodic Substance-related disorders (20 sources) Tobacco dependence in remission; 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, [address] BUN/CRE Normal - [facility] Comment on above: Result Comment: Canc elled via OM: Order cancelled - Patient discharged Performed By: #### L 100.0100, L500.2500 ####[facility] [address] [place], [address] Calcium Normal 7.6-11.0 [facility] Comment on above: Result Comment: Canc elled via OM: Order cancelled - Patient discharged Performed By: #### L 100.0100, L500.2500 ####[facility] [address] [place], [address] CL Normal 98-108 [facility] Comment on above: Result Comment: Canc elled via OM: Order cancelled - Patient discharged Performed By: #### L 100.0100, L500.2500 ####[facility] [address] [place], [address] CO2 Normal 21.0-32.0 [facility] Comment on above: Result Comment: Canc elled via OM: Order cancelled - Patient discharged Performed By: #### L 100.0100, L500.2500 ####[facility] [address] [place], [address] CREAT,SERUM Normal 0.70-1.20 [facility] Comment on above: Result Comment: Canc elled via OM: Order cancelled - Patient discharged Performed By: #### L 100.0100, L500.2500 ####[facility] [address] [place], [address] eGFR Normal >60 [facility] Comment on above: Result Comment: Canc elled via OM: Order cancelled - Patient discharged Performed By: #### L 100.0100, L500.2500 ####[facility] [address] [place], [address] GAP Normal 5-15 [facility] Comment on above: Result Comment: Canc elled via OM: Order cancelled - Patient discharged Performed By: #### L 100.0100, L500.2500 ####[facility] [address] [place], [address] GLU Normal 70-99 [facility] Comment on above: Result Comment: Canc elled via OM: Order cancelled - Patient discharged Performed By: #### L 100.0100, L500.2500 ####[facility] [address] [place], [address] Potassium Normal 3.3-5.1 [facility] Comment on above: Result Comment: Canc elled via OM: Order cancelled - Patient discharged Performed By: #### L 100.0100, L500.2500 ####[facility] [address] [place], [address] Basic Metabolic Profile (BMP) Normal 133-145 [facility] Comment on above: Result Comment: Canc elled via OM: Order cancelled - Patient discharged Performed By: #### L 100.0100, L500.2500 ####[facility] [address] [place], [address] CBC W/Diff, Automatedon 2 -2024 Absolute Neut Normal 2.0-7.7 [facility] Comment on above: Result Comment: Canc elled via OM: Order cancelled - Patient discharged Performed By: #### L 100.0100, L500.2500 ####[facility] [address] [place], [address] HCT Normal 40-54 [facility] Comment on above: Result Comment: Canc elled via OM: Order cancelled - Patient discharged Performed By: #### L 100.0100, L500.2500 ####[facility] [address] [place], [address] HGB Normal 13.0-16.5 [facility] Comment on above: Result Comment: Canc elled via OM: Order cancelled - Patient discharged Performed By: #### L 100.0100, L500.2500 ####[facility] [address] [place], [address] MCH Normal 27.0-32.0 [facility] Comment on above: Result Comment: Canc elled via OM: Order cancelled - Patient discharged Performed By: #### L 100.0100, L500.2500 ####[facility] [address] [place], [address] MCHC Normal 32-36 [facility] Comment on above: Result Comment: Canc elled via OM: Order cancelled - Patient discharged Performed By: #### L 100.0100, L500.2500 ####[facility] [address] [place], [address] MCV Normal 80-94 [facility] Comment on above: Result Comment: Canc elled via OM: Order cancelled - Patient discharged Performed By: #### L 100.0100, L500.2500 ####[facility] [address] [place], [address] NEUT% Normal 47-70 [facility] Comment on above: Result Comment: Canc elled via OM: Order cancelled - Patient discharged Performed By: #### L 100.0100, L500.2500 ####[facility] [address] [place], [address] PLT Normal 150-450 [facility] Comment on above: Result Comment: Canc elled via OM: Order cancelled - Patient discharged Performed By: #### L 100.0100, L500.2500 ####[facility] [address] [place], [address] RBC Normal 4.6-6.2 [facility] Comment on above: Result Comment: Canc elled via OM: Order cancelled - Patient discharged Performed By: #### L 100.0100, L500.2500 ####[facility] [address] [place], [address] RDW CV Normal 11.6-14.6 [facility] Comment on above: Result Comment: Canc elled via OM: Order cancelled - Patient discharged Performed By: #### L 100.0100, L500.2500 ####[facility] [address] [place], [address] RDW SD Normal 35.1-43.9 [facility] Comment on above: Result Comment: Canc elled via OM: Order cancelled - Patient discharged Performed By: #### L 100.0100, L500.2500 ####[facility] [address] [place], [address] WBC Normal 4.4-11.0 [facility] Comment on above: Result Comment: Canc elled via OM: Order cancelled - Patient discharged Performed By: #### L 100.0100, L500.2500 ####[facility] [address] [place], [address] Basic Metabolic Profile (BMP )on 05-08-2025 BUN Normal -19 [facility] Comment on above: Result Comment: Canc elled via OM: Order cancelled - Patient discharged Performed By: #### L 500.2500, L100.0100 ####[facility] [address] [place], [address] BUN/CRE Normal -20 [facility] Comment on above: Result Comment: Canc elled via OM: Order cancelled - Patient discharged Performed By: #### L 500.2500, L100.0100 ####[facility] [address] [place], [address] Calcium Normal 7.6-11.0 [facility] Comment on above: Result Comment: Canc elled via OM: Order cancelled - Patient discharged Performed By: #### L 500.2500, L100.0100 ####[facility] [address] [place], [address] CL Normal 98-108 [facility] Comment on above: Result Comment: Canc elled via OM: Order cancelled - Patient discharged Performed By: #### L 500.2500, L100.0100 ####[facility] [address] [place], [address] CO2 Normal 21.0-32.0 [facility] Comment on above: Result Comment: Canc elled via OM: Order cancelled - Patient discharged Performed By: #### L 500.2500, L100.0100 ####[facility] [address] [place], [address] CREAT,SERUM Normal 0.70-1.20 [facility] Comment on above: Result Comment: Canc elled via OM: Order cancelled - Patient discharged Performed By: #### L 500.2500, L100.0100 ####[facility] [address] [place], [address] eGFR Normal >60 [facility] Comment on above: Result Comment: Canc elled via OM: Order cancelled - Patient discharged Performed By: #### L 500.2500, L100.0100 ####[facility] [address] [place], [address] GAP Normal 5-15 [facility] Comment on above: Result Comment: Canc elled via OM: Order cancelled - Patient discharged Performed By: #### L 500.2500, L100.0100 ####[facility] [address] [place], [address] GLU Normal 70-99 [facility] Comment on above: Result Comment: Canc elled via OM: Order cancelled - Patient discharged Performed By: #### L 500.2500, L100.0100 ####[facility] [address] [place], [address] Potassium Normal 3.3-5.1 [facility] Comment on above: Result Comment: Canc elled via OM: Order cancelled - Patient discharged Performed By: #### L 500.2500, L100.0100 ####[facility] [address] [place], [address] Basic Metabolic Profile (BMP) Normal 133-145 [facility] Comment on above: Result Comment: Canc elled via OM: Order cancelled - Patient discharged Performed By: #### L 500.2500, L100.0100 ####[facility] [address] [place], [address] CBC W/Diff, Automatedon 04-20 Absolute Neut Normal 2.0-7.7 [facility] Comment on above: Result Comment: Canc elled via OM: Order cancelled - Patient discharged Performed By: #### L 500.2500, L100.0100 ####[facility] [address] [place], [address] HCT Normal 40-54 [facility] Comment on above: Result Comment: Canc elled via OM: Order cancelled - Patient discharged Performed By: #### L 500.2500, L100.0100 ####[facility] [address] [place], [address] HGB Normal 13.0-16.5 [facility] Comment on above: Result Comment: Canc elled via OM: Order cancelled - Patient discharged Performed By: #### L 500.2500, L100.0100 ####[facility] [address] [place], [address] MCH Normal 27.0-32.0 [facility] Comment on above: Result Comment: Canc elled via OM: Order cancelled - Patient discharged Performed By: #### L 500.2500, L100.0100 ####[facility] [address] [place], [address] MCHC Normal 32-36 [facility] Comment on above: Result Comment: Canc elled via OM: Order cancelled - Patient discharged Performed By: #### L 500.2500, L100.0100 ####[facility] [address] [place], [address] MCV Normal 80-94 [facility] Comment on above: Result Comment: Canc elled via OM: Order cancelled - Patient discharged Performed By: #### L 500.2500, L100.0100 ####[facility] [address] [place], [address] NEUT% Normal 47-70 [facility] Comment on above: Result Comment: Canc elled via OM: Order cancelled - Patient discharged Performed By: #### L 500.2500, L100.0100 ####[facility] [address] [place], [address] PLT Normal 150-450 [facility] Comment on above: Result Comment: Canc elled via OM: Order cancelled - Patient discharged Performed By: #### L 500.2500, L100.0100 ####[facility] [address] [place], [address] RBC Normal 4.6-6.2 [facility] Comment on above: Result Comment: Canc elled via OM: Order cancelled - Patient discharged Performed By: #### L 500.2500, L100.0100 ####[facility] [address] [place], [address] RDW CV Normal 11.6-14.6 [facility] Comment on above: Result Comment: Canc elled via OM: Order cancelled - Patient discharged Performed By: #### L 500.2500, L100.0100 ####[facility] [address] [place], [address] RDW SD Normal 35.1-43.9 [facility] Comment on above: Result Comment: Canc elled via OM: Order cancelled - Patient discharged Performed By: #### L 500.2500, L100.0100 ####[facility] [address] [place], [address] WBC Normal 4.4-11.0 [facility] Comment on above: Result Comment: Canc elled via OM: Order cancelled - Patient discharged Performed By: #### L 500.2500, L100.0100 ####[facility] [address] [place], [address] Basic Metabolic Profile (BMP )on 05-07-2025 BUN Normal 4-19 [facility] Comment on above: Result Comment: Canc elled via OM: Order cancelled - Patient discharged Performed By: #### L 500.2500, L100.0100 ####[facility] [address] [place], [address] BUN/CRE Normal 10-20 [facility] Comment on above: Result Comment: Canc elled via OM: Order cancelled - Patient discharged Performed By: #### L 500.2500, L100.0100 ####[facility] [address] [place], [address] Calcium Normal 7.6-11.0 [facility] Comment on above: Result Comment: Canc elled via OM: Order cancelled - Patient discharged Performed By: #### L 500.2500, L100.0100 ####[facility] [address] [place], [address] CL Normal 98-108 [facility] Comment on above: Result Comment: Canc elled via OM: Order cancelled - Patient discharged Performed By: #### L 500.2500, L100.0100 ####[facility] [address] [place], [address] CO2 Normal 21.0-32.0 [facility] Comment on above: Result Comment: Canc elled via OM: Order cancelled - Patient discharged Performed By: #### L 500.2500, L100.0100 ####[facility] [address] [place], [address] CREAT,SERUM Normal 0.70-1.20 [facility] Comment on above: Result Comment: Canc elled via OM: Order cancelled - Patient discharged Performed By: #### L 500.2500, L100.0100 ####[facility] [address] [place], [address] eGFR Normal >60 [facility] Comment on above: Result Comment: Canc elled via OM: Order cancelled - Patient discharged Performed By: #### L 500.2500, L100.0100 ####[facility] [address] [place], [address] GAP Normal 5-15 [facility] Comment on above: Result Comment: Canc elled via OM: Order cancelled - Patient discharged Performed By: #### L 500.2500, L100.0100 ####[facility] [address] [place], [address] GLU Normal 70-99 [facility] Comment on above: Result Comment: Canc elled via OM: Order cancelled - Patient discharged Performed By: #### L 500.2500, L100.0100 ####[facility] [address] [place], [address] Potassium Normal 3.3-5.1 [facility] Comment on above: Result Comment: Canc elled via OM: Order cancelled - Patient discharged Performed By: #### L 500.2500, L100.0100 ####[facility] [address] [place], [address] Basic Metabolic Profile (BMP) Normal 133-145 [facility] Comment on above: Result Comment: Canc elled via OM: Order cancelled - Patient discharged Performed By: #### L 500.2500, L100.0100 ####[facility] [address] [place], [address] CBC W/Diff, Automatedon 09- Absolute Neut Normal 2.0-7.7 [facility] Comment on above: Result Comment: Canc elled via OM: Order cancelled - Patient discharged Performed By: #### L 500.2500, L100.0100 ####[facility] [address] [place], [address] HCT Normal 40-54 [facility] Comment on above: Result Comment: Canc elled via OM: Order cancelled - Patient discharged Performed By: #### L 500.2500, L100.0100 ####[facility] [address] [place], [address] HGB Normal 13.0-16.5 [facility] Comment on above: Result Comment: Canc elled via OM: Order cancelled - Patient discharged Performed By: #### L 500.2500, L100.0100 ####[facility] [address] [place], [address] MCH Normal 27.0-32.0 [facility] Comment on above: Result Comment: Canc elled via OM: Order cancelled - Patient discharged Performed By: #### L 500.2500, L100.0100 ####[facility] [address] [place], [address] MCHC Normal 32-36 [facility] Comment on above: Result Comment: Canc elled via OM: Order cancelled - Patient discharged Performed By: #### L 500.2500, L100.0100 ####[facility] [address] [place], [address] MCV Normal 80-94 [facility] Comment on above: Result Comment: Canc elled via OM: Order cancelled - Patient discharged Performed By: #### L 500.2500, L100.0100 ####[facility] [address] [place], [address] NEUT% Normal 47-70 [facility] Comment on above: Result Comment: Canc elled via OM: Order cancelled - Patient discharged Performed By: #### L 500.2500, L100.0100 ####[facility] [address] [place], [address] PLT Normal 150-450 [facility] Comment on above: Result Comment: Canc elled via OM: Order cancelled - Patient discharged Performed By: #### L 500.2500, L100.0100 ####[facility] [address] [place], [address] RBC Normal 4.6-6.2 [facility] Comment on above: Result Comment: Canc elled via OM: Order cancelled - Patient discharged Performed By: #### L 500.2500, L100.0100 ####[facility] [address] [place], [address] RDW CV Normal 11.6-14.6 [facility] Comment on above: Result Comment: Canc elled via OM: Order cancelled - Patient discharged Performed By: #### L 500.2500, L100.0100 ####[facility] [address] [place], [address] RDW SD Normal 35.1-43.9 [facility] Comment on above: Result Comment: Canc elled via OM: Order cancelled - Patient discharged Performed By: #### L 500.2500, L100.0100 ####[facility] [address] [place], [address] WBC Normal 4.4-11.0 [facility] Comment on above: Result Comment: Canc elled via OM: Order cancelled - Patient discharged Performed By: #### L 500.2500, L100.0100 ####[facility] [address] [place], [address] Basic Metabolic Profile (BMP )on 05-06-2025 BUN Normal 4-19 [facility] Comment on above: Result Comment: Canc elled via OM: Order cancelled - Patient discharged Performed By: #### L 500.2500, L100.0100 ####[facility] [address] [place], [address] BUN/CRE Normal 10-20 [facility] Comment on above: Result Comment: Canc elled via OM: Order cancelled - Patient discharged Performed By: #### L 500.2500, L100.0100 ####[facility] [address] [place], [address] Calcium Normal 7.6-11.0 [facility] Comment on above: Result Comment: Canc elled via OM: Order cancelled - Patient discharged Performed By: #### L 500.2500, L100.0100 ####[facility] [address] [place], [address] CL Normal 98-108 [facility] Comment on above: Result Comment: Canc elled via OM: Order cancelled - Patient discharged Performed By: #### L 500.2500, L100.0100 ####[facility] [address] [place], [address] CO2 Normal 21.0-32.0 [facility] Comment on above: Result Comment: Canc elled via OM: Order cancelled - Patient discharged Performed By: #### L 500.2500, L100.0100 ####[facility] [address] [place], [address] CREAT,SERUM Normal 0.70-1.20 [facility] Comment on above: Result Comment: Canc elled via OM: Order cancelled - Patient discharged Performed By: #### L 500.2500, L100.0100 ####[facility] [address] [place], [address] eGFR Normal >60 [facility] Comment on above: Result Comment: Canc elled via OM: Order cancelled - Patient discharged Performed By: #### L 500.2500, L100.0100 ####[facility] [address] [place], [address] GAP Normal 5-15 [facility] Comment on above: Result Comment: Canc elled via OM: Order cancelled - Patient discharged Performed By: #### L 500.2500, L100.0100 ####[facility] [address] [place], [address] GLU Normal 70-99 [facility] Comment on above: Result Comment: Canc elled via OM: Order cancelled - Patient discharged Performed By: #### L 500.2500, L100.0100 ####[facility] [address] [place], [address] Potassium Normal 3.3-5.1 [facility] Comment on above: Result Comment: Canc elled via OM: Order cancelled - Patient discharged Performed By: #### L 500.2500, L100.0100 ####[facility] [address] [place], [address] Basic Metabolic Profile (BMP) Normal 133-145 [facility] Comment on above: Result Comment: Canc elled via OM: Order cancelled - Patient discharged Performed By: #### L 500.2500, L100.0100 ####[facility] [address] [place], [address] CBC W/Diff, Automatedon 09-1 Absolute Neut Normal 2.0-7.7 [facility] Comment on above: Result Comment: Canc elled via OM: Order cancelled - Patient discharged Performed By: #### L 500.2500, L100.0100 ####[facility] [address] [place], [address] HCT Normal 40-54 [facility] Comment on above: Result Comment: Canc elled via OM: Order cancelled - Patient discharged Performed By: #### L 500.2500, L100.0100 ####[facility] [address] [place], [address] HGB Normal 13.0-16.5 [facility] Comment on above: Result Comment: Canc elled via OM: Order cancelled - Patient discharged Performed By: #### L 500.2500, L100.0100 ####[facility] [address] [place], [address] MCH Normal 27.0-32.0 [facility] Comment on above: Result Comment: Canc elled via OM: Order cancelled - Patient discharged Performed By: #### L 500.2500, L100.0100 ####[facility] [address] [place], [address] MCHC Normal 32-36 [facility] Comment on above: Result Comment: Canc elled via OM: Order cancelled - Patient discharged Performed By: #### L 500.2500, L100.0100 ####[facility] [address] [place], [address] MCV Normal 80-94 [facility] Comment on above: Result Comment: Canc elled via OM: Order cancelled - Patient discharged Performed By: #### L 500.2500, L100.0100 ####[facility] [address] [place], [address] NEUT% Normal 47-70 [facility] Comment on above: Result Comment: Canc elled via OM: Order cancelled - Patient discharged Performed By: #### L 500.2500, L100.0100 ####[facility] [address] [place], [address] PLT Normal 150-450 [facility] Comment on above: Result Comment: Canc elled via OM: Order cancelled - Patient discharged Performed By: #### L 500.2500, L100.0100 ####[facility] [address] [place], [address] RBC Normal 4.6-6.2 [facility] Comment on above: Result Comment: Canc elled via OM: Order cancelled - Patient discharged Performed By: #### L 500.2500, L100.0100 ####[facility] [address] [place], [address] RDW CV Normal 11.6-14.6 [facility] Comment on above: Result Comment: Canc elled via OM: Order cancelled - Patient discharged Performed By: #### L 500.2500, L100.0100 ####[facility] [address] [place], [address] RDW SD Normal 35.1-43.9 [facility] Comment on above: Result Comment: Canc elled via OM: Order cancelled - Patient discharged Performed By: #### L 500.2500, L100.0100 ####[facility] [address] [place], [address] WBC Normal 4.4-11.0 [facility] Comment on above: Result Comment: Canc elled via OM: Order cancelled - Patient discharged Performed By: #### L 500.2500, L100.0100 ####[facility] [address] [place], [address] Basic Metabolic Profile (BMP )on 05-05-2025 BUN Normal 4-19 [facility] Comment on above: Result Comment: Canc elled via OM: Order cancelled - Patient discharged Performed By: #### L 500.2500, L100.0100 ####[facility] [address] [place], [address] BUN/CRE Normal 10-20 [facility] Comment on above: Result Comment: Canc elled via OM: Order cancelled - Patient discharged Performed By: #### L 500.2500, L100.0100 ####[facility] [address] [place], [address] Calcium Normal 7.6-11.0 [facility] Comment on above: Result Comment: Canc elled via OM: Order cancelled - Patient discharged Performed By: #### L 500.2500, L100.0100 ####[facility] [address] [place], [address] CL Normal 98-108 [facility] Comment on above: Result Comment: Canc elled via OM: Order cancelled - Patient discharged Performed By: #### L 500.2500, L100.0100 ####[facility] [address] [place], [address] CO2 Normal 21.0-32.0 [facility] Comment on above: Result Comment: Canc elled via OM: Order cancelled - Patient discharged Performed By: #### L 500.2500, L100.0100 ####[facility] [address] [place], [address] CREAT,SERUM Normal 0.70-1.20 [facility] Comment on above: Result Comment: Canc elled via OM: Order cancelled - Patient discharged Performed By: #### L 500.2500, L100.0100 ####[facility] [address] [place], [address] eGFR Normal >60 [facility] Comment on above: Result Comment: Canc elled via OM: Order cancelled - Patient discharged Performed By: #### L 500.2500, L100.0100 ####[facility] [address] [place], [address] GAP Normal 5-15 [facility] Comment on above: Result Comment: Canc elled via OM: Order cancelled - Patient discharged Performed By: #### L 500.2500, L100.0100 ####[facility] [address] [place], [address] GLU Normal 70-99 [facility] Comment on above: Result Comment: Canc elled via OM: Order cancelled - Patient discharged Performed By: #### L 500.2500, L100.0100 ####[facility] [address] [place], [address] Potassium Normal 3.3-5.1 [facility] Comment on above: Result Comment: Canc elled via OM: Order cancelled - Patient discharged Performed By: #### L 500.2500, L100.0100 ####[facility] [address] [place], [address] Basic Metabolic Profile (BMP) Normal 133-145 [facility] Comment on above: Result Comment: Canc elled via OM: Order cancelled - Patient discharged Performed By: #### L 500.2500, L100.0100 ####[facility] [address] [place], [address] CBC W/Diff, Automatedon - Absolute Neut Normal 2.0-7.7 [facility] Comment on above: Result Comment: Canc elled via OM: Order cancelled - Patient discharged Performed By: #### L 500.2500, L100.0100 ####[facility] [address] [place], [address] HCT Normal 40-54 [facility] Comment on above: Result Comment: Canc elled via OM: Order cancelled - Patient discharged Performed By: #### L 500.2500, L100.0100 ####[facility] [address] [place], [address] HGB Normal 13.0-16.5 [facility] Comment on above: Result Comment: Canc elled via OM: Order cancelled - Patient discharged Performed By: #### L 500.2500, L100.0100 ####[facility] [address] [place], [address] MCH Normal 27.0-32.0 [facility] Comment on above: Result Comment: Canc elled via OM: Order cancelled - Patient discharged Performed By: #### L 500.2500, L100.0100 ####[facility] [address] [place], [address] MCHC Normal 32-36 [facility] Comment on above: Result Comment: Canc elled via OM: Order cancelled - Patient discharged Performed By: #### L 500.2500, L100.0100 ####[facility] [address] [place], [address] MCV Normal 80-94 [facility] Comment on above: Result Comment: Canc elled via OM: Order cancelled - Patient discharged Performed By: #### L 500.2500, L100.0100 ####[facility] [address] [place], [address] NEUT% Normal 47-70 [facility] Comment on above: Result Comment: Canc elled via OM: Order cancelled - Patient discharged Performed By: #### L 500.2500, L100.0100 ####[facility] [address] [place], [address] PLT Normal 150-450 [facility] Comment on above: Result Comment: Canc elled via OM: Order cancelled - Patient discharged Performed By: #### L 500.2500, L100.0100 ####[facility] [address] [place], [address] RBC Normal 4.6-6.2 [facility] Comment on above: Result Comment: Canc elled via OM: Order cancelled - Patient discharged Performed By: #### L 500.2500, L100.0100 ####[facility] [address] [place], [address] RDW CV Normal 11.6-14.6 [facility] Comment on above: Result Comment: Canc elled via OM: Order cancelled - Patient discharged Performed By: #### L 500.2500, L100.0100 ####[facility] [address] [place], [address] RDW SD Normal 35.1-43.9 [facility] Comment on above: Result Comment: Canc elled via OM: Order cancelled - Patient discharged Performed By: #### L 500.2500, L100.0100 ####[facility] [address] [place], [address] WBC Normal 4.4-11.0 [facility] Comment on above: Result Comment: Canc elled via OM: Order cancelled - Patient discharged Performed By: #### L 500.2500, L100.0100 ####[facility] [address] [place], [address] Basic Metabolic Profile (BMP )on 05-04-2025 BUN Normal 4-19 [facility] Comment on above: Result Comment: Canc elled via OM: Order cancelled - Patient discharged Performed By: #### L 500.2500, L100.0100 ####[facility] [address] [place], [address] BUN/CRE Normal 10-20 [facility] Comment on above: Result Comment: Canc elled via OM: Order cancelled - Patient discharged Performed By: #### L 500.2500, L100.0100 ####[facility] [address] [place], [address] Calcium Normal 7.6-11.0 [facility] Comment on above: Result Comment: Canc elled via OM: Order cancelled - Patient discharged Performed By: #### L 500.2500, L100.0100 ####[facility] [address] [place], [address] CL Normal 98-108 [facility] Comment on above: Result Comment: Canc elled via OM: Order cancelled - Patient discharged Performed By: #### L 500.2500, L100.0100 ####[facility] [address] [place], [address] CO2 Normal 21.0-32.0 [facility] Comment on above: Result Comment: Canc elled via OM: Order cancelled - Patient discharged Performed By: #### L 500.2500, L100.0100 ####[facility] [address] [place], [address] CREAT,SERUM Normal 0.70-1.20 [facility] Comment on above: Result Comment: Canc elled via OM: Order cancelled - Patient discharged Performed By: #### L 500.2500, L100.0100 ####[facility] [address] [place], [address] eGFR Normal >60 [facility] Comment on above: Result Comment: Canc elled via OM: Order cancelled - Patient discharged Performed By: #### L 500.2500, L100.0100 ####[facility] [address] [place], [address] GAP Normal 5-15 [facility] Comment on above: Result Comment: Canc elled via OM: Order cancelled - Patient discharged Performed By: #### L 500.2500, L100.0100 ####[facility] [address] [place], [address] GLU Normal 70-99 [facility] Comment on above: Result Comment: Canc elled via OM: Order cancelled - Patient discharged Performed By: #### L 500.2500, L100.0100 ####[facility] [address] [place], [address] Potassium Normal 3.3-5.1 [facility] Comment on above: Result Comment: Canc elled via OM: Order cancelled - Patient discharged Performed By: #### L 500.2500, L100.0100 ####[facility] [address] [place], [address] Basic Metabolic Profile (BMP) Normal 133-145 [facility] Comment on above: Result Comment: Canc elled via OM: Order cancelled - Patient discharged Performed By: #### L 500.2500, L100.0100 ####[facility] [address] [place], [address] CBC W/Diff, Automatedon 09-1 Absolute Neut Normal 2.0-7.7 [facility] Comment on above: Result Comment: Canc elled via OM: Order cancelled - Patient discharged Performed By: #### L 500.2500, L100.0100 ####[facility] [address] [place], [address] HCT Normal 40-54 [facility] Comment on above: Result Comment: Canc elled via OM: Order cancelled - Patient discharged Performed By: #### L 500.2500, L100.0100 ####[facility] [address] [place], [address] HGB Normal 13.0-16.5 [facility] Comment on above: Result Comment: Canc elled via OM: Order cancelled - Patient discharged Performed By: #### L 500.2500, L100.0100 ####[facility] [address] [place], [address] MCH Normal 27.0-32.0 [facility] Comment on above: Result Comment: Canc elled via OM: Order cancelled - Patient discharged Performed By: #### L 500.2500, L100.0100 ####[facility] [address] [place], [address] MCHC Normal 32-36 [facility] Comment on above: Result Comment: Canc elled via OM: Order cancelled - Patient discharged Performed By: #### L 500.2500, L100.0100 ####[facility] [address] [place], [address] MCV Normal 80-94 [facility] Comment on above: Result Comment: Canc elled via OM: Order cancelled - Patient discharged Performed By: #### L 500.2500, L100.0100 ####[facility] [address] [place], [address] NEUT% Normal 47-70 [facility] Comment on above: Result Comment: Canc elled via OM: Order cancelled - Patient discharged Performed By: #### L 500.2500, L100.0100 ####[facility] [address] [place], [address] PLT Normal 150-450 [facility] Comment on above: Result Comment: Canc elled via OM: Order cancelled - Patient discharged Performed By: #### L 500.2500, L100.0100 ####[facility] [address] [place], [address] RBC Normal 4.6-6.2 [facility] Comment on above: Result Comment: Canc elled via OM: Order cancelled - Patient discharged Performed By: #### L 500.2500, L100.0100 ####[facility] [address] [place], [address] RDW CV Normal 11.6-14.6 [facility] Comment on above: Result Comment: Canc elled via OM: Order cancelled - Patient discharged Performed By: #### L 500.2500, L100.0100 ####[facility] [address] [place], [address] RDW SD Normal 35.1-43.9 [facility] Comment on above: Result Comment: Canc elled via OM: Order cancelled - Patient discharged Performed By: #### L 500.2500, L100.0100 ####[facility] [address] [place], [address] WBC Normal 4.4-11.0 [facility] Comment on above: Result Comment: Canc elled via OM: Order cancelled - Patient discharged Performed By: #### L 500.2500, L100.0100 ####[facility] [address] [place], [address] Basic Metabolic Profile (BMP )on 05-02-2025 BUN Normal 4-19 [facility] Comment on above: Result Comment: Canc elled via OM: Order cancelled - Patient discharged Performed By: #### L 500.2500, L100.0100 ####[facility] [address] [place], [address] BUN/CRE Normal 10-20 [facility] Comment on above: Result Comment: Canc elled via OM: Order cancelled - Patient discharged Performed By: #### L 500.2500, L100.0100 ####[facility] [address] [place], [address] Calcium Normal 7.6-11.0 [facility] Comment on above: Result Comment: Canc elled via OM: Order cancelled - Patient discharged Performed By: #### L 500.2500, L100.0100 ####[facility] [address] [place], [address] CL Normal 98-108 [facility] Comment on above: Result Comment: Canc elled via OM: Order cancelled - Patient discharged Performed By: #### L 500.2500, L100.0100 ####[facility] [address] [place], [address] CO2 Normal 21.0-32.0 [facility] Comment on above: Result Comment: Canc elled via OM: Order cancelled - Patient discharged Performed By: #### L 500.2500, L100.0100 ####[facility] [address] [place], [address] CREAT,SERUM Normal 0.70-1.20 [facility] Comment on above: Result Comment: Canc elled via OM: Order cancelled - Patient discharged Performed By: #### L 500.2500, L100.0100 ####[facility] [address] [place], [address] eGFR Normal >60 [facility] Comment on above: Result Comment: Canc elled via OM: Order cancelled - Patient discharged Performed By: #### L 500.2500, L100.0100 ####[facility] [address] [place], [address] GAP Normal 5-15 [facility] Comment on above: Result Comment: Canc elled via OM: Order cancelled - Patient discharged Performed By: #### L 500.2500, L100.0100 ####[facility] [address] [place], [address] GLU Normal 70-99 [facility] Comment on above: Result Comment: Canc elled via OM: Order cancelled - Patient discharged Performed By: #### L 500.2500, L100.0100 ####[facility] [address] [place], [address] Potassium Normal 3.3-5.1 [facility] Comment on above: Result Comment: Canc elled via OM: Order cancelled - Patient discharged Performed By: #### L 500.2500, L100.0100 ####[facility] [address] [place], [address] Basic Metabolic Profile (BMP) Normal 133-145 [facility] Comment on above: Result Comment: Canc elled via OM: Order cancelled - Patient discharged Performed By: #### L 500.2500, L100.0100 ####[facility] [address] [place], [address] CBC W/Diff, Automatedon 09-1 Absolute Neut Normal 2.0-7.7 [facility] Comment on above: Result Comment: Canc elled via OM: Order cancelled - Patient discharged Performed By: #### L 500.2500, L100.0100 ####[facility] [address] [place], [address] HCT Normal 40-54 [facility] Comment on above: Result Comment: Canc elled via OM: Order cancelled - Patient discharged Performed By: #### L 500.2500, L100.0100 ####[facility] [address] [place], [address] HGB Normal 13.0-16.5 [facility] Comment on above: Result Comment: Canc elled via OM: Order cancelled - Patient discharged Performed By: #### L 500.2500, L100.0100 ####[facility] [address] [place], [address] MCH Normal 27.0-32.0 [facility] Comment on above: Result Comment: Canc elled via OM: Order cancelled - Patient discharged Performed By: #### L 500.2500, L100.0100 ####[facility] [address] [place], [address] MCHC Normal 32-36 [facility] Comment on above: Result Comment: Canc elled via OM: Order cancelled - Patient discharged Performed By: #### L 500.2500, L100.0100 ####[facility] [address] [place], [address] MCV Normal 80-94 [facility] Comment on above: Result Comment: Canc elled via OM: Order cancelled - Patient discharged Performed By: #### L 500.2500, L100.0100 ####[facility] [address] [place], [address] NEUT% Normal 47-70 [facility] Comment on above: Result Comment: Canc elled via OM: Order cancelled - Patient discharged Performed By: #### L 500.2500, L100.0100 ####[facility] [address] [place], [address] PLT Normal 150-450 [facility] Comment on above: Result Comment: Canc elled via OM: Order cancelled - Patient discharged Performed By: #### L 500.2500, L100.0100 ####[facility] [address] [place], [address] RBC Normal 4.6-6.2 [facility] Comment on above: Result Comment: Canc elled via OM: Order cancelled - Patient discharged Performed By: #### L 500.2500, L100.0100 ####[facility] [address] [place], [address] RDW CV Normal 11.6-14.6 [facility] Comment on above: Result Comment: Canc elled via OM: Order cancelled - Patient discharged Performed By: #### L 500.2500, L100.0100 ####[facility] [address] [place], [address] RDW SD Normal 35.1-43.9 [facility] Comment on above: Result Comment: Canc elled via OM: Order cancelled - Patient discharged Performed By: #### L 500.2500, L100.0100 ####[facility] [address] [place], [address] WBC Normal 4.4-11.0 [facility] Comment on above: Result Comment: Canc elled via OM: Order cancelled - Patient discharged Performed By: #### L 500.2500, L100.0100 ####[facility] [address] [place], [address] Basic Metabolic Profile (BMP )on 04-25-2025 BUN Normal 4-19 [facility] Comment on above: Result Comment: Canc elled via OM: Order cancelled - Patient discharged Performed By: #### L 100.0100, L500.2500 ####[facility] [address] [place], [address] BUN/CRE Normal 10-20 [facility] Comment on above: Result Comment: Canc elled via OM: Order cancelled - Patient discharged Performed By: #### L 100.0100, L500.2500 ####[facility] [address] [place], [address] Calcium Normal 7.6-11.0 [facility] Comment on above: Result Comment: Canc elled via OM: Order cancelled - Patient discharged Performed By: #### L 100.0100, L500.2500 ####[facility] [address] [place], [address] CL Normal 98-108 [facility] Comment on above: Result Comment: Canc elled via OM: Order cancelled - Patient discharged Performed By: #### L 100.0100, L500.2500 ####[facility] [address] [place], [address] CO2 Normal 21.0-32.0 [facility] Comment on above: Result Comment: Canc elled via OM: Order cancelled - Patient discharged Performed By: #### L 100.0100, L500.2500 ####[facility] [address] [place], [address] CREAT,SERUM Normal 0.70-1.20 [facility] Comment on above: Result Comment: Canc elled via OM: Order cancelled - Patient discharged Performed By: #### L 100.0100, L500.2500 ####[facility] [address] [place], [address] eGFR Normal >60 [facility] Comment on above: Result Comment: Canc elled via OM: Order cancelled - Patient discharged Performed By: #### L 100.0100, L500.2500 ####[facility] [address] [place], [address] GAP Normal 5-15 [facility] Comment on above: Result Comment: Canc elled via OM: Order cancelled - Patient discharged Performed By: #### L 100.0100, L500.2500 ####[facility] [address] [place], [address] GLU Normal 70-99 [facility] Comment on above: Result Comment: Canc elled via OM: Order cancelled - Patient discharged Performed By: #### L 100.0100, L500.2500 ####[facility] [address] [place], [address] Potassium Normal 3.3-5.1 [facility] Comment on above: Result Comment: Canc elled via OM: Order cancelled - Patient discharged Performed By: #### L 100.0100, L500.2500 ####[facility] [address] [place], [address] Basic Metabolic Profile (BMP) Normal 133-145 [facility] Comment on above: Result Comment: Canc elled via OM: Order cancelled - Patient discharged Performed By: #### L 100.0100, L500.2500 ####[facility] [address] [place], [address] CBC W/Diff, Automatedon 09-0 6-2024 Absolute Neut Normal 2.0-7.7 [facility] Comment on above: Result Comment: Canc elled via OM: Order cancelled - Patient discharged Performed By: #### L 100.0100, L500.2500 ####[facility] [address] [place], [address] HCT Normal 40-54 [facility] Comment on above: Result Comment: Canc elled via OM: Order cancelled - Patient discharged Performed By: #### L 100.0100, L500.2500 ####[facility] [address] [place], [address] HGB Normal 13.0-16.5 [facility] Comment on above: Result Comment: Canc elled via OM: Order cancelled - Patient discharged Performed By: #### L 100.0100, L500.2500 ####[facility] [address] [place], [address] MCH Normal 27.0-32.0 [facility] Comment on above: Result Comment: Canc elled via OM: Order cancelled - Patient discharged Performed By: #### L 100.0100, L500.2500 ####[facility] [address] [place], [address] MCHC Normal 32-36 [facility] Comment on above: Result Comment: Canc elled via OM: Order cancelled - Patient discharged Performed By: #### L 100.0100, L500.2500 ####[facility] [address] [place], [address] MCV Normal 80-94 [facility] Comment on above: Result Comment: Canc elled via OM: Order cancelled - Patient discharged Performed By: #### L 100.0100, L500.2500 ####[facility] [address] [place], [address] NEUT% Normal 47-70 [facility] Comment on above: Result Comment: Canc elled via OM: Order cancelled - Patient discharged Performed By: #### L 100.0100, L500.2500 ####[facility] [address] [place], [address] PLT Normal 150-450 [facility] Comment on above: Result Comment: Canc elled via OM: Order cancelled - Patient discharged Performed By: #### L 100.0100, L500.2500 ####[facility] [address] [place], [address] RBC Normal 4.6-6.2 [facility] Comment on above: Result Comment: Canc elled via OM: Order cancelled - Patient discharged Performed By: #### L 100.0100, L500.2500 ####[facility] [address] [place], [address] RDW CV Normal 11.6-14.6 [facility] Comment on above: Result Comment: Canc elled via OM: Order cancelled - Patient discharged Performed By: #### L 100.0100, L500.2500 ####[facility] [address] [place], [address] RDW SD Normal 35.1-43.9 [facility] Comment on above: Result Comment: Canc elled via OM: Order cancelled - Patient discharged Performed By: #### L 100.0100, L500.2500 ####[facility] [address] [place], [address] WBC Normal 4.4-11.0 [facility] Comment on above: Result Comment: Canc elled via OM: Order cancelled - Patient discharged Performed By: #### L 100.0100, L500.2500 ####[facility] [address] [place], [address] Bedside Glucoseon 04-23-2025 FINGERSTICK GLU 231 mg/dL High 74-106 [facility] Comment on above: Result Comment: KODY GEMENT OF PATIENT CARE PER NURSING PROTOCOL Performed By: #### L 501.080 ####[facility] [address] [place], [address] FINGERSTICK GLU 130 mg/dL High 74-106 [facility] Comment on above: Result Comment: KODY GEMENT OF PATIENT CARE PER NURSING PROTOCOL Performed By: #### L 501.080 ####[facility] [address] [place], [address] [facility] deOrdered By: Tonio Mccallum on 04-23-2025 Glucose [Mass/Vol] 127 mg/dL High 74-106 [facility] Bedside Glucoseon 04-22-2025 FINGERSTICK GLU 120 mg/dL High 74-106 [facility] Comment on above: Result Comment: KODY GEMENT OF PATIENT CARE PER NURSING PROTOCOL Performed By: #### L 501.080 ####[facility] [address] [place], [address] FINGERSTICK GLU 151 mg/dL High 74-106 [facility] Comment on above: Result Comment: KODY GEMENT OF PATIENT CARE PER NURSING PROTOCOL Performed By: #### L 501.080 ####[facility] [address] [place], [address] FINGERSTICK GLU 231 mg/dL High 74-106 [facility] Comment on above: Result Comment: KODY GEMENT OF PATIENT CARE PER NURSING PROTOCOL Performed By: #### L 501.080 ####[facility] [address] [place], [address] FINGERSTICK GLU 119 mg/dL High 74-106 [facility] Comment on above: Result Comment: KODY GEMENT OF PATIENT CARE PER NURSING PROTOCOL Performed By: #### L 501.080 ####[facility] [address] [place], [address] Anion gap in Serum or Plasma Ordered By: Tonio Mccallum on 04-21-2025 Anion gap [Moles/Vol] 10 mmol/L 5-15 [facility] BUN/creatinine ratioOrdered By: Tonio Mccallum on 04-21-2025 Urea nitrogen/Creatinine [Mass ratio] 20.6 mg/mg High 10-20 [facility] Basic Metabolic Profile (BMP )on 04-21-2025 BUN/CRE 20.6 RATIO High 10-20 [facility] Comment on above: Performed By: #### L 500.2500 ####[facility] [address] [place], [address] Calcium [Mass/Vol] 8.6 mg/dL Normal 7.6-11.0 [facility] Comment on above: Performed By: #### L 500.2500 ####[facility] [address] [place], [address] Chloride [Moles/Vol] 96 mmol/L Low 98-108 [facility] Comment on above: Performed By: #### L 500.2500 ####[facility] [address] [place], [address] CO2 [Moles/Vol] 29.6 mmol/L Normal 21.0-32.0 [facility] Comment on above: Performed By: #### L 500.2500 ####[facility] [address] [place], [address] Creatinine [Mass/Vol] 1.56 mg/dL High 0.70-1.20 [facility] Comment on above: Performed By: #### L 500.2500 ####[facility] [address] [place], [address] ECRCL 34.08 ml/min Low 50-250 [facility] Comment on above: Performed By: #### L 500.2500 ####[facility] [address] [place], [address] GAP 10 Normal 5-15 [facility] Comment on above: Performed By: #### L 500.2500 ####[facility] [address] [place], [address] GFR/1.73 sq M.predicted among non-blacks MDRD (S/P/Bld) [Vol rate/Area] 45 mL/min/{1.73_m2} Low >60 [facility] Comment on above: Result Comment: mL/m in/1.73m2 CKD-EPI Creatinine Equation (2020) Performed By: #### L 500.2500 ####[facility] [address] [place], [address] Glucose [Mass/Vol] 137 mg/dL High 70-99 [facility] Comment on above: Performed By: #### L 500.2500 ####[facility] [address] [place], [address] Potassium [Moles/Vol] 3.5 mmol/L Normal 3.3-5.1 [facility] Comment on above: Performed By: #### L 500.2500 ####[facility] [address] [place], [address] Sodium [Moles/Vol] 136 mmol/L Normal 133-145 [facility] Comment on above: Performed By: #### L 500.2500 ####[facility] [address] [place], [address] Urea nitrogen [Mass/Vol] 32 mg/dL High 4-19 [facility] Comment on above: Performed By: #### L 500.2500 ####[facility] [address] [place], [address] Bedside Glucoseon 04-21-2025 FINGERSTICK GLU 140 mg/dL High 74-106 [facility] Comment on above: Result Comment: KODY GEMENT OF PATIENT CARE PER NURSING PROTOCOL Performed By: #### L 501.080 ####[facility] [address] [place], [address] FINGERSTICK GLU 220 mg/dL High 74-106 [facility] Comment on above: Result Comment: KODY GEMENT OF PATIENT CARE PER NURSING PROTOCOL Performed By: #### L 501.080 ####[facility] [address] [place], [address] FINGERSTICK GLU 231 mg/dL High 74-106 [facility] Comment on above: Result Comment: KODY GEMENT OF PATIENT CARE PER NURSING PROTOCOL Performed By: #### L 501.080 ####[facility] [address] [place], [address] FINGERSTICK GLU 134 mg/dL High 74-106 [facility] Comment on above: Result Comment: KODY GEMENT OF PATIENT CARE PER NURSING PROTOCOL Performed By: #### L 501.080 ####[facility] [address] [place], [address] Carbon dioxide, total [Moles /volume] in Central venous bloodOrdered By: Tonio Mccallum on 04-21-2025 CO2 [Moles/Vol] 29.6 mmol/L 21.0-32.0 [facility] Chloride assayOrdered By: Min Mccallum on 04-21-2025 Chloride [Moles/Vol] 96 mmol/L Low 98-108 [facility] Electrocardiogram reportOrde red By: Willian Glaser on 04-21-2025 EKG study [facility] Work Phone: Glomerular filtration rate ( GFR) estimation/1.73 sq m using serum, plasma, or whole bOrdered By: Tonio Mccallum on 04-21-2025 GFR/1.73 sq M.predicted among non-blacks MDRD (S/P/Bld) [Vol rate/Area] 45 mL/min/{1.73_m2} Low >60 [facility] Potassium measurement (mass/ volume)Ordered By: Tonio Mccallum on 04-21-2025 Potassium (Unsp spec) [Mass/Vol] 3.5 mmol/L 3.3-5.1 [facility] Serum creatinine measurement (mass/volume)Ordered By: Tonio Mccallum on 04-21-2025 Creatinine [Mass/Vol] 1.56 mg/dL High 0.70-1.20 [facility] Serum glucose measurement (m ass/volume)Ordered By: Tonio Mccallum on 04-21-2025 Glucose [Mass/Vol] 137 mg/dL High 70-99 [facility] Serum or plasma calcium [place] urement (mass/volume)Ordered By: Tonio Mccallum on 04-21-2025 Calcium [Mass/Vol] 8.6 mg/dL 7.6-11.0 [facility] Serum or plasma urea nitroge n measurement (mass/volume)Ordered By: Tonio Mccallum on 04-21-2025 Urea nitrogen [Mass/Vol] 32 mg/dL High 4-19 [facility] Sodium levelOrdered By: Tonio Mccallum on 04-21-2025 Sodium [Moles/Vol] 136 mmol/L 133-145 [facility] Basic Metabolic Profile (BMP )on 04-20-2025 BUN/CRE 22.4 RATIO High 10-20 [facility] Comment on above: Performed By: #### L 100.0500, L500.2500 ####[facility] [address] [place], [place], [address] Calcium [Mass/Vol] 9.1 mg/dL Normal 7.6-11.0 [facility] Comment on above: Performed By: #### L 100.0500, L500.2500 ####[facility] [address] [place], [address] Chloride [Moles/Vol] 91 mmol/L Low 98-108 [facility] Comment on above: Performed By: #### L 100.0500, L500.2500 ####[facility] [address] [place], [address] CO2 [Moles/Vol] 32.1 mmol/L High 21.0-32.0 [facility] Comment on above: Performed By: #### L 100.0500, L500.2500 ####[facility] [address] [place], [address] Creatinine [Mass/Vol] 1.65 mg/dL High 0.70-1.20 [facility] Comment on above: Performed By: #### L 100.0500, L500.2500 ####[facility] [address] [place], [address] ECRCL 32.22 ml/min Low 50-250 [facility] Comment on above: Performed By: #### L 100.0500, L500.2500 ####[facility] [address] [place], [address] GAP 12 Normal 5-15 [facility] Comment on above: Performed By: #### L 100.0500, L500.2500 ####[facility] [address] [place], [address] GFR/1.73 sq M.predicted among non-blacks MDRD (S/P/Bld) [Vol rate/Area] 42 mL/min/{1.73_m2} Low >60 [facility] Comment on above: Result Comment: mL/m in/1.73m2 CKD-EPI Creatinine Equation (2020) Performed By: #### L 100.0500, L500.2500 ####[facility] [address] [place], [address] Glucose [Mass/Vol] 154 mg/dL High 70-99 [facility] Comment on above: Performed By: #### L 100.0500, L500.2500 ####[facility] [address] [place], [address] Potassium [Moles/Vol] 3.4 mmol/L Normal 3.3-5.1 [facility] Comment on above: Performed By: #### L 100.0500, L500.2500 ####[facility] [address] [place], [address] Sodium [Moles/Vol] 135 mmol/L Normal 133-145 [facility] Comment on above: Performed By: #### L 100.0500, L500.2500 ####[facility] [address] [place], [address] Urea nitrogen [Mass/Vol] 37 mg/dL High 4-19 [facility] Comment on above: Performed By: #### L 100.0500, L500.2500 ####[facility] [address] [place], [address] Bedside Glucoseon 04-20-2025 FINGERSTICK GLU 213 mg/dL High 74-106 [facility] Comment on above: Result Comment: KODY GEMENT OF PATIENT CARE PER NURSING PROTOCOL Performed By: #### L 501.080 ####[facility] [address] [place], [address] FINGERSTICK GLU 173 mg/dL High 74-106 [facility] Comment on above: Result Comment: KODY GEMENT OF PATIENT CARE PER NURSING PROTOCOL Performed By: #### L 501.080 ####[facility] [address] [place], [address] FINGERSTICK GLU 178 mg/dL High 74-106 [facility] Comment on above: Result Comment: KODY GEMENT OF PATIENT CARE PER NURSING PROTOCOL Performed By: #### L 501.080 ####[facility] [address] [place], [address] FINGERSTICK GLU 156 mg/dL High 74-106 [facility] Comment on above: Result Comment: KODY GEMENT OF PATIENT CARE PER NURSING PROTOCOL Performed By: #### L 501.080 ####[facility] [address] [place], [address] CBC-Complete Blood Cnt No Di ffon 04-20-2025 Erythrocyte distribution width (RBC) [Ratio] 17.1 % High 11.6-14.6 [facility] Comment on above: Performed By: #### L 100.0500, L500.2500 ####[facility] [address] [place], [address] Hematocrit (Bld) [Volume fraction] 29.4 % Low 40-54 [facility] Comment on above: Performed By: #### L 100.0500, L500.2500 ####[facility] [address] [place], [address] Hemoglobin (Bld) [Mass/Vol] 9.1 g/dL Low 13.0-16.5 [facility] Comment on above: Performed By: #### L 100.0500, L500.2500 ####[facility] [address] [place], [address] MCH (RBC) [Entitic mass] 26.8 pg Low 27.0-32.0 [facility] Comment on above: Performed By: #### L 100.0500, L500.2500 ####[facility] [address] [place], [address] MCHC (RBC) [Mass/Vol] 31.0 g/dL Low 32-36 [facility] Comment on above: Performed By: #### L 100.0500, L500.2500 ####[facility] [address] [place], [address] MCV (RBC) [Entitic vol] 86.7 fL Normal 80-94 [facility] Comment on above: Performed By: #### L 100.0500, L500.2500 ####[facility] [address] [place], [address] Platelet mean volume (Bld) [Entitic vol] 11.0 fL Normal 6.2-12.0 [facility] Comment on above: Performed By: #### L 100.0500, L500.2500 ####[facility] [address] [place], [address] Platelets (Bld) [#/Vol] 192 10*3/uL Normal 150-450 [facility] Comment on above: Performed By: #### L 100.0500, L500.2500 ####[facility] [address] [place], [address] RBC (Bld) [#/Vol] 3.39 10*6/uL Low 4.6-6.2 [facility] Comment on above: Performed By: #### L 100.0500, L500.2500 ####[facility] [address] [place], [address] RDW SD 53.4 fl High 35.1-43.9 [facility] Comment on above: Performed By: #### L 100.0500, L500.2500 ####[facility] [address] [place], [address] WBC (Bld) [#/Vol] 9.9 10*3/uL Normal 4.4-11.0 [facility] Comment on above: Performed By: #### L 100.0500, L500.2500 ####[facility] [address] [place], [address] Erythrocyte distribution wid th ratioOrdered By: Kwaku Narayanan on 04-20-2025 Erythrocyte distribution width (RBC) [Ratio] 17.1 % High 11.6-14.6 [facility] Erythrocyte distribution wid th standard deviationOrdered By: Kwaku Narayanan on 04-20-2025 Erythrocyte distribution width (RBC) [Ratio] 53.4 fl High 35.1-43.9 [facility] Hematocrit Auto (Bld) [Volum e fraction]Ordered By: Kwaku Narayanan on 04-20-2025 Hematocrit (Bld) [Volume fraction] 29.4 % Low 40-54 [facility] Hemoglobin measurementOrdere d By: Kwaku Narayanan on 04-20-2025 Hemoglobin (Bld) [Mass/Vol] 9.1 g/dL Low 13.0-16.5 [facility] MCV (mean corpuscular volume ) determinationOrdered By: Kwaku Narayanan on 04-20-2025 MCV (RBC) [Entitic vol] 86.7 fL 80-94 [facility] Mean corpuscular hemoglobin (MCH) determinationOrdered By: Kwaku Narayanan on 04-20-2025 MCH (RBC) [Entitic mass] 26.8 pg Low 27.0-32.0 [facility] Platelet countOrdered By: Sean Narayanan on 04-20-2025 Platelets (Bld) [#/Vol] 192 10*3/uL 150-450 [facility] RBC Auto (Bld) [#/Vol]Ordere d By: Kwaku Narayanan on 04-20-2025 RBC (Bld) [#/Vol] 3.39 10*6/uL Low 4.6-6.2 [facility] White blood cell (WBC) count Ordered By: Kwaku Narayanan on 04-20-2025 WBC (Bld) [#/Vol] 9.9 10*3/uL 4.4-11.0 [facility] 12 Lead EKGon 04-19-2025 12 Lead EKG Normal [facility] Absolute lymphocyte countOrd ered By: Casper Iniguez on 04-19-2025 Lymphocytes Auto (Unsp spec) [#/Vol] 0.97 10*3/uL 0.83-4.51 [facility] Anion gap in Serum or Plasma Ordered By: Casper Iniguez on 04-19-2025 Anion gap [Moles/Vol] 11 mmol/L 5-15 [facility] Automated lymphocyte count a s percentage of total leukocytesOrdered By: Casper Iniguez on 04-19-2025 Lymphocytes/100 WBC Auto (Unsp spec) 9.1 % Low 19-41 [facility] BUN/creatinine ratioOrdered By: Casper Iniguez on 04-19-2025 Urea nitrogen/Creatinine [Mass ratio] 22.7 mg/mg High 10-20 [facility] Basophil percentageOrdered B y: Casper Iniguez on 04-19-2025 Basophils/100 WBC (Bld) 0.3 % 0-1 [facility] Bedside Glucoseon 04-19-2025 FINGERSTICK GLU 178 mg/dL High 74-106 [facility] Comment on above: Result Comment: KODY GEMENT OF PATIENT CARE PER NURSING PROTOCOL Performed By: #### L 501.080 ####[facility] [address] [facility] [address] FINGERSTICK GLU 193 mg/dL High 74-106 [facility] Comment on above: Result Comment: KODY GEMENT OF PATIENT CARE PER NURSING PROTOCOL Performed By: #### L 501.080 ####[facility] [address] [place], [address] FINGERSTICK GLU 91 mg/dL Normal 74-106 [facility] Comment on above: Result Comment: KODY GEMENT OF PATIENT CARE PER NURSING PROTOCOL Performed By: #### L 501.080 ####[facility] [address] [place], [address] FINGERSTICK GLU 123 mg/dL High 74-106 [facility] Comment on above: Result Comment: KODY GEMENT OF PATIENT CARE PER NURSING PROTOCOL Performed By: #### L 501.080 ####[facility] [address] [place], [address] Bilirubin, totalOrdered By: Casper Iniguez on 04-19-2025 Bilirubin [Mass/Vol] 0.55 mg/dL 0.00-1.30 [facility] CBC W/Diff, Automatedon 03-22 Absolute Lymph 0.97 X10 3/uL Normal 0.83-4.51 [facility] Comment on above: Performed By: #### L 501.4021, L500.4050, L100.0100 ####[facility] [address] [place], [address] Absolute Neut 8.0 X10 3/uL High 2.0-7.7 [facility] Comment on above: Performed By: #### L 501.4021, L500.4050, L100.0100 ####[facility] [address] [place], [address] Basophils/100 WBC (Bld) 0.3 % Normal 0-1 [facility] Comment on above: Performed By: #### L 501.4021, L500.4050, L100.0100 ####[facility] [address] [place], [address] Eosinophils/100 WBC (Bld) 2.7 % Normal 0-5 [facility] Comment on above: Performed By: #### L 501.4021, L500.4050, L100.0100 ####[facility] [address] [place], [address] Erythrocyte distribution width (RBC) [Ratio] 17.2 % High 11.6-14.6 [facility] Comment on above: Performed By: #### L 501.4021, L500.4050, L100.0100 ####[facility] [address] [place], [address] Hematocrit (Bld) [Volume fraction] 30.6 % Low 40-54 [facility] Comment on above: Performed By: #### L 501.4021, L500.4050, L100.0100 ####[facility] [address] [place], [address] Hemoglobin (Bld) [Mass/Vol] 9.6 g/dL Low 13.0-16.5 [facility] Comment on above: Performed By: #### L 501.4021, L500.4050, L100.0100 ####[facility] [address] [place], [address] IG% 1.600 High 0.0-0.9 [facility] Comment on above: Result Comment: IG% - Immature Granulocytes (promyelocytes, myelocytes andmetamyelocytes) > 1% indicates that a LEFT SHIFT is Present. Performed By: #### L 501.4021, L500.4050, L100.0100 ####[facility] [address] [place], [address] Lymphocytes/100 WBC (Bld) 9.1 % Low 19-41 [facility] Comment on above: Performed By: #### L 501.4021, L500.4050, L100.0100 ####[facility] [address] [place], [address] MCH (RBC) [Entitic mass] 27.4 pg Normal 27.0-32.0 [facility] Comment on above: Performed By: #### L 501.4021, L500.4050, L100.0100 ####[facility] [address] [place], [address] MCHC (RBC) [Mass/Vol] 31.4 g/dL Low 32-36 [facility] Comment on above: Performed By: #### L 501.4021, L500.4050, L100.0100 ####[facility] [address] [place], [address] MCV (RBC) [Entitic vol] 87.2 fL Normal 80-94 [facility] Comment on above: Performed By: #### L 501.4021, L500.4050, L100.0100 ####[facility] [address] [place], [address] Monocytes/100 WBC (Bld) 11.3 % High 0-10 [facility] Comment on above: Performed By: #### L 501.4021, L500.4050, L100.0100 ####[facility] [address] [place], [address] Neutrophils/100 WBC (Bld) 75.0 % High 47-70 [facility] Comment on above: Performed By: #### L 501.4021, L500.4050, L100.0100 ####[facility] [address] [place], [address] Nucleated RBC (Bld) [#/Vol] 0 10*3/uL Normal 0-5 [facility] Comment on above: Performed By: #### L 501.4021, L500.4050, L100.0100 ####[facility] [address] [place], [address] Platelet mean volume (Bld) [Entitic vol] 11.1 fL Normal 6.2-12.0 [facility] Comment on above: Performed By: #### L 501.4021, L500.4050, L100.0100 ####[facility] [address] [place], [address] Platelets (Bld) [#/Vol] 204 10*3/uL Normal 150-450 [facility] Comment on above: Performed By: #### L 501.4021, L500.4050, L100.0100 ####[facility] [address] [place], [address] RBC (Bld) [#/Vol] 3.51 10*6/uL Low 4.6-6.2 [facility] Comment on above: Performed By: #### L 501.4021, L500.4050, L100.0100 ####[facility] [address] [place], [address] RDW SD 54.8 fl High 35.1-43.9 [facility] Comment on above: Performed By: #### L 501.4021, L500.4050, L100.0100 ####[facility] [address] [place], [address] WBC (Bld) [#/Vol] 10.7 10*3/uL Normal 4.4-11.0 [facility] Comment on above: Performed By: #### L 501.4021, L500.4050, L100.0100 ####[facility] [address] [place], [address] Carbon dioxide, total [Moles /volume] in Central venous bloodOrdered By: Casper Iniguez on 04-19-2025 CO2 [Moles/Vol] 37.3 mmol/L High 21.0-32.0 [facility] Chest 1 View (Portable)on Chest 1 View (Portable) Normal [facility] Chloride assayOrdered By: Akin Iniguez on 04-19-2025 Chloride [Moles/Vol] 87 mmol/L Low 98-108 [facility] Comprehensive Metabolic Prof ilon 04-19-2025 Albumin [Mass/Vol] 3.4 g/dL Normal 3.4-4.8 [facility] Comment on above: Performed By: #### L 501.4021, L500.4050, L100.0100 ####[facility] [address] [place], [address] Albumin/Globulin [Mass ratio] 1.0 {ratio} Normal 0.9-2.4 [facility] Comment on above: Performed By: #### L 501.4021, L500.4050, L100.0100 ####[facility] [address] [place], [address] ALK PHOS 79 U/L Normal 40-129 [facility] Comment on above: Performed By: #### L 501.4021, L500.4050, L100.0100 ####[facility] [address] [place], [address] ALT [Catalytic activity/Vol] 27 U/L Normal <=46 [facility] Comment on above: Performed By: #### L 501.4021, L500.4050, L100.0100 ####[facility] [address] [place], [address] AST [Catalytic activity/Vol] 30 U/L Normal <=37 [facility] Comment on above: Performed By: #### L 501.4021, L500.4050, L100.0100 ####[facility] [address] [place], [address] Bilirubin [Mass/Vol] 0.55 mg/dL Normal 0.00-1.30 [facility] Comment on above: Performed By: #### L 501.4021, L500.4050, L100.0100 ####[facility] [address] [place], [address] BUN/CRE 22.7 RATIO High 10-20 [facility] Comment on above: Performed By: #### L 501.4021, L500.4050, L100.0100 ####[facility] [address] [place], [address] Calcium [Mass/Vol] 9.4 mg/dL Normal 7.6-11.0 [facility] Comment on above: Performed By: #### L 501.4021, L500.4050, L100.0100 ####[facility] [address] [place], [address] Chloride [Moles/Vol] 87 mmol/L Low 98-108 [facility] Comment on above: Performed By: #### L 501.4021, L500.4050, L100.0100 ####[facility] [address] [place], [address] CO2 [Moles/Vol] 37.3 mmol/L High 21.0-32.0 [facility] Comment on above: Performed By: #### L 501.4021, L500.4050, L100.0100 ####[facility] [address] [place], [address] Creatinine [Mass/Vol] 1.74 mg/dL High 0.70-1.20 [facility] Comment on above: Performed By: #### L 501.4021, L500.4050, L100.0100 ####[facility] [address] [place], [address] ECRCL 30.56 ml/min Low 50-250 [facility] Comment on above: Performed By: #### L 501.4021, L500.4050, L100.0100 ####[facility] [address] [place], [address] GAP 11 Normal 5-15 [facility] Comment on above: Performed By: #### L 501.4021, L500.4050, L100.0100 ####[facility] [address] [place], [address] GFR/1.73 sq M.predicted among non-blacks MDRD (S/P/Bld) [Vol rate/Area] 39 mL/min/{1.73_m2} Low >60 [facility] Comment on above: Result Comment: mL/m in/1.73m2 CKD-EPI Creatinine Equation (2020) Performed By: #### L 501.4021, L500.4050, L100.0100 ####[facility] [address] [place], [address] Globulin (S) [Mass/Vol] 3.4 g/dL Normal 2.2-4.2 [facility] Comment on above: Performed By: #### L 501.4021, L500.4050, L100.0100 ####[facility] [address] [place], [address] Glucose [Mass/Vol] 132 mg/dL High 70-99 [facility] Comment on above: Performed By: #### L 501.4021, L500.4050, L100.0100 ####[facility] [address] [place], [address] Potassium [Moles/Vol] 3.5 mmol/L Normal 3.3-5.1 [facility] Comment on above: Performed By: #### L 501.4021, L500.4050, L100.0100 ####[facility] [address] [place], [address] Sodium [Moles/Vol] 136 mmol/L Normal 133-145 [facility] Comment on above: Performed By: #### L 501.4021, L500.4050, L100.0100 ####[facility] [address] [place], [address] T PROT 6.8 g/dL Normal 5.9-8.4 [facility] Comment on above: Performed By: #### L 501.4021, L500.4050, L100.0100 ####[facility] [address] [place], [address] Urea nitrogen [Mass/Vol] 40 mg/dL High 4-19 [facility] Comment on above: Performed By: #### L 501.4021, L500.4050, L100.0100 ####[facility] [address] [place], [address] Emergency Department Summary on 04-19-2025 Emergency Department Summary Normal [facility] Eosinophil percentageOrdered By: Casper Iniguez on 04-19-2025 Eosinophils/100 WBC (Bld) 2.7 % 0-5 [facility] Erythrocyte distribution wid th ratioOrdered By: Casper Iniguez on 04-19-2025 Erythrocyte distribution width (RBC) [Ratio] 17.2 % High 11.6-14.6 [facility] Erythrocyte distribution wid th standard deviationOrdered By: Casper Iniguez on 04-19-2025 Erythrocyte distribution width (RBC) [Ratio] 54.8 fl High 35.1-43.9 [facility] Glomerular filtration rate ( GFR) estimation/1.73 sq m using serum, plasma, or whole bOrdered By: Casper Iniguez on 04-19-2025 GFR/1.73 sq M.predicted among non-blacks MDRD (S/P/Bld) [Vol rate/Area] 39 mL/min/{1.73_m2} Low >60 [facility] deOrdered By: Valdez Olivo on 04-19-2025 Glucose [Mass/Vol] 123 mg/dL High 74-106 [facility] H AND P Exam - Hospitaliston 04-19-2025 H&P Exam - Hospitalist Normal [facility] Hematocrit Auto (Bld) [Volum e fraction]Ordered By: Casper Iniguez on 04-19-2025 Hematocrit (Bld) [Volume fraction] 30.6 % Low 40-54 [facility] Hemoglobin measurementOrdere d By: Casper Iniguez on 04-19-2025 Hemoglobin (Bld) [Mass/Vol] 9.6 g/dL Low 13.0-16.5 [facility] Immature granulocytes/100 WB C Auto (Bld)Ordered By: Casper Iniguez on 04-19-2025 Immature granulocytes/100 WBC (Bld) 1.600 % High 0.0-0.9 [facility] L501.4021on 04-19-2025 Trop T High Sen 99 ng/L Invalid Interpretation Code <=22 [facility] Comment on above: Result Comment: Crit ical Result(s) Called at 922: by: RENAE MANUEL TOCARGABRITE. ??Results read back by same. Performed By: #### L 501.4021, L500.4050, L100.0100 ####[facility] [address] [place], [address] MCV (mean corpuscular volume ) determinationOrdered By: Casper Hira on 04-19-2025 MCV (RBC) [Entitic vol] 87.2 fL 80-94 [facility] Magnesiumon 04-19-2025 Magnesium [Mass/Vol] 2.1 mg/dL Normal 1.5-2.2 [facility] Comment on above: Performed By: #### L 501.5200, L501.2300, L503.7505 ####[facility] [address] [place], [address] Magnesium measurement (mass/ volume)Ordered By: Kwaku Narayanan on 04-19-2025 Magnesium (Unsp spec) [Mass/Vol] 2.1 mg/dL 1.5-2.2 [facility] Mean corpuscular hemoglobin (MCH) determinationOrdered By: Casper Hira on 04-19-2025 MCH (RBC) [Entitic mass] 27.4 pg 27.0-32.0 [facility] Monocyte percentageOrdered B y: Casper Hira on 04-19-2025 Monocytes/100 WBC (Bld) 11.3 % High 0-10 [facility] Natriuretic peptide.B prohor girish N-Terminal [Mass/volume] in Serum or PlasmaOrdered By: Kwaku Narayanan on 04-19-2025 Natriuretic peptide.B prohormone N-Terminal [Mass/Vol] 3388 pg/mL High <1800 [facility] Neutrophil percentageOrdered By: Casper Hira on 04-19-2025 Neutrophils/100 WBC (Bld) 75.0 % High 47-70 [facility] No Panel InformationOrdered By: Casper Hira on 04-19-2025 30 U/L <38 [facility] Phosphoruson 04-19-2025 Phosphate [Mass/Vol] 3.9 mg/dL Normal 2.7-4.5 [facility] Comment on above: Performed By: #### L 501.5200, L501.2300, L503.7505 ####[facility] [address] [place], [place], [id number] Platelet countOrdered By: Akin Iniguez on 04-19-2025 Platelets (Bld) [#/Vol] 204 10*3/uL 150-450 [facility] Potassium measurement (mass/ volume)Ordered By: Casper Iniguez on 04-19-2025 Potassium (Unsp spec) [Mass/Vol] 3.5 mmol/L 3.3-5.1 [facility] Pro- Brain NATRIURETIC PEPTI Adrienne 04-19-2025 Natriuretic peptide B (Bld) [Mass/Vol] 3388 pg/mL High <=1800 [facility] Comment on above: Result Comment: Hear t Failure Unlikely: < 300 pg/mLHeart Failure Likely< 50 Years: > 450 pg/mL50-75 Years: > 900 pg/mL>75 Years: > 1800 pg/mL Performed By: #### L 501.5200, L501.2300, L503.7505 ####[facility] [address] [place], [place], [address] RBC Auto (Bld) [#/Vol]Ordere d By: Casper Iniguez on 04-19-2025 RBC (Bld) [#/Vol] 3.51 10*6/uL Low 4.6-6.2 [facility] Serum creatinine measurement (mass/volume)Ordered By: Casper Iniguez on 04-19-2025 Creatinine [Mass/Vol] 1.74 mg/dL High 0.70-1.20 [facility] Serum globulin measurementOr dered By: Casper Iniguez on 04-19-2025 Globulin (S) [Mass/Vol] 3.4 g/dL 2.2-4.2 [facility] Serum glucose measurement (m ass/volume)Ordered By: Casper Iniguez on 04-19-2025 Glucose [Mass/Vol] 132 mg/dL High 70-99 [facility] Serum or plasma alanine ortiz otransferase (ALT) measurementOrdered By: Casper Iniguez on 04-19-2025 ALT [Catalytic activity/Vol] 27 U/L <47 [facility] Serum or plasma albumin kingsley urement (mass/volume)Ordered By: Casper Iniguez on 04-19-2025 Albumin [Mass/Vol] 3.4 g/dL 3.4-4.8 [facility] Serum or plasma albumin/glob ulin mass ratioOrdered By: Casper Iniguez on 04-19-2025 Albumin/Globulin [Mass ratio] 1.0 {ratio} 0.9-2.4 [facility] Serum or plasma alkaline roosevelt sphatase measurementOrdered By: Casper Iniguez on 04-19-2025 ALP [Catalytic activity/Vol] 79 U/L 40-129 [facility] Serum or plasma calcium kingsley urement (mass/volume)Ordered By: Casper Iniguez on 04-19-2025 Calcium [Mass/Vol] 9.4 mg/dL 7.6-11.0 [facility] Serum or plasma urea nitroge n measurement (mass/volume)Ordered By: Casper Iniguez on 04-19-2025 Urea nitrogen [Mass/Vol] 40 mg/dL High 4-19 [facility] Sodium levelOrdered By: Rema Iniguez on 04-19-2025 Sodium [Moles/Vol] 136 mmol/L 133-145 [facility] Total proteinOrdered By: Shira Iniguez on 04-19-2025 Protein [Mass/Vol] 6.8 g/dL 5.9-8.4 [facility] Troponin T HS 2 HRon 025 Trop T High Sen 95 ng/L Invalid Interpretation Code <=22 [facility] Comment on above: Result Comment: Crit ical Result(s) Called at 1126: by: RENAE GIRON. ??Results read back by same. Performed By: #### L 499.0042 ####[facility] [address] [place], [address] Troponin T HS 4 HRon 025 Trop T High Sen 93 ng/L Invalid Interpretation Code <=22 [facility] Comment on above: Result Comment: Crit ical Result(s) Called at 1326: by: RENAE GIRON. ??Results read back by same. Performed By: #### L 499.0043 ####[facility] [address] [place], [place], [address] Troponin T.cardiac [Mass/vol ume] in Serum or Plasma by High sensitivity methodOrdered By: Casper Iniguez on 04-19-2025 Troponin T.cardiac High sensitivity method [Mass/Vol] 93 ng/L High <22 [facility] Troponin T.cardiac High sensitivity method [Mass/Vol] 95 ng/L High <22 [facility] Troponin T.cardiac High sensitivity method [Mass/Vol] 99 ng/L High <22 [facility] White blood cell (WBC) count Ordered By: Casper Iniguez on 04-19-2025 WBC (Bld) [#/Vol] 10.7 10*3/uL 4.4-11.0 [facility] Absolute lymphocyte countOrd ered By: Valdez Olivo on 04-18-2025 Lymphocytes Auto (Unsp spec) [#/Vol] 0.61 10*3/uL Low 0.83-4.51 [facility] Anion gap in Serum or Plasma Ordered By: Valdez Olivo on 04-18-2025 Anion gap [Moles/Vol] 12 mmol/L 5-15 [facility] Automated lymphocyte count a s percentage of total leukocytesOrdered By: Valdez Olivo on 04-18-2025 Lymphocytes/100 WBC Auto (Unsp spec) 6.2 % Low 19-41 [facility] BUN/creatinine ratioOrdered By: Valdez Olivo on 04-18-2025 Urea nitrogen/Creatinine [Mass ratio] 25.1 mg/mg High 10-20 [facility] Basic Metabolic Profile (BMP )on 04-18-2025 BUN/CRE 25.1 RATIO High - [facility] Comment on above: Performed By: #### L 100.0100, L500.2500 ####[facility] [address] [place], [place], [id number] Calcium [Mass/Vol] 9.1 mg/dL Normal 7.6-11.0 [facility] Comment on above: Performed By: #### L 100.0100, L500.2500 ####[facility] [address] [place], [address] Chloride [Moles/Vol] 89 mmol/L Low 98-108 [facility] Comment on above: Performed By: #### L 100.0100, L500.2500 ####[facility] [address] [place], [address] CO2 [Moles/Vol] 36.0 mmol/L High 21.0-32.0 [facility] Comment on above: Performed By: #### L 100.0100, L500.2500 ####[facility] [address] [place], [address] Creatinine [Mass/Vol] 1.73 mg/dL High 0.70-1.20 [facility] Comment on above: Performed By: #### L 100.0100, L500.2500 ####[facility] [address] [place], [address] ECRCL 30.73 ml/min Low 50-250 [facility] Comment on above: Performed By: #### L 100.0100, L500.2500 ####[facility] [address] [place], [address] GAP 12 Normal 5-15 [facility] Comment on above: Performed By: #### L 100.0100, L500.2500 ####[facility] [address] [place], [address] GFR/1.73 sq M.predicted among non-blacks MDRD (S/P/Bld) [Vol rate/Area] 39 mL/min/{1.73_m2} Low >60 [facility] Comment on above: Result Comment: mL/m in/1.73m2 CKD-EPI Creatinine Equation (2021) Performed By: #### L 100.0100, L500.2500 ####[facility] [address] [place], [address] Glucose [Mass/Vol] 104 mg/dL High 70-99 [facility] Comment on above: Performed By: #### L 100.0100, L500.2500 ####[facility] [address] [place], [address] Potassium [Moles/Vol] 3.4 mmol/L Normal 3.3-5.1 [facility] Comment on above: Performed By: #### L 100.0100, L500.2500 ####[facility] [address] [place], [address] Sodium [Moles/Vol] 137 mmol/L Normal 133-145 [facility] Comment on above: Performed By: #### L 100.0100, L500.2500 ####[facility] [address] [place], [address] Urea nitrogen [Mass/Vol] 43 mg/dL High 4-19 [facility] Comment on above: Performed By: #### L 100.0100, L500.2500 ####[facility] [address] [place], [address] BUN Normal 4-19 [facility] Comment on above: Result Comment: Canc elled via OM: Order cancelled - Patient discharged Performed By: #### L 100.0100, L500.2500 ####[facility] [address] [place], [address] BUN/CRE Normal 10-20 [facility] Comment on above: Result Comment: Canc elled via OM: Order cancelled - Patient discharged Performed By: #### L 100.0100, L500.2500 ####[facility] [address] [place], [address] Calcium Normal 7.6-11.0 [facility] Comment on above: Result Comment: Canc elled via OM: Order cancelled - Patient discharged Performed By: #### L 100.0100, L500.2500 ####[facility] [address] [place], [address] CL Normal 98-108 [facility] Comment on above: Result Comment: Canc elled via OM: Order cancelled - Patient discharged Performed By: #### L 100.0100, L500.2500 ####[facility] [address] [place], [address] CO2 Normal 21.0-32.0 [facility] Comment on above: Result Comment: Canc elled via OM: Order cancelled - Patient discharged Performed By: #### L 100.0100, L500.2500 ####[facility] [address] [place], [address] CREAT,SERUM Normal 0.70-1.20 [facility] Comment on above: Result Comment: Canc elled via OM: Order cancelled - Patient discharged Performed By: #### L 100.0100, L500.2500 ####[facility] [address] [place], [address] eGFR Normal >60 [facility] Comment on above: Result Comment: Canc elled via OM: Order cancelled - Patient discharged Performed By: #### L 100.0100, L500.2500 ####[facility] [address] [place], [address] GAP Normal 5-15 [facility] Comment on above: Result Comment: Canc elled via OM: Order cancelled - Patient discharged Performed By: #### L 100.0100, L500.2500 ####[facility] [address] [place], [address] GLU Normal 70-99 [facility] Comment on above: Result Comment: Canc elled via OM: Order cancelled - Patient discharged Performed By: #### L 100.0100, L500.2500 ####[facility] [address] [place], [address] Potassium Normal 3.3-5.1 [facility] Comment on above: Result Comment: Canc elled via OM: Order cancelled - Patient discharged Performed By: #### L 100.0100, L500.2500 ####[facility] [address] [place], [address] Basic Metabolic Profile (BMP) Normal 133-145 [facility] Comment on above: Result Comment: Canc elled via OM: Order cancelled - Patient discharged Performed By: #### L 100.0100, L500.2500 ####[facility] [address] [place], [address] Basophil percentageOrdered B y: Valdez Geovani on 04-18-2025 Basophils/100 WBC (Bld) 0.2 % 0-1 [facility] Bedside Glucoseon 04-18-2025 FINGERSTICK GLU 217 mg/dL High 74-106 [facility] Comment on above: Result Comment: KODY GEMENT OF PATIENT CARE PER NURSING PROTOCOL Performed By: #### L 501.080 ####[facility] [address] [place], [address] FINGERSTICK GLU 161 mg/dL High 74-106 [facility] Comment on above: Result Comment: KODY GEMENT OF PATIENT CARE PER NURSING PROTOCOL Performed By: #### L 501.080 ####[facility] [address] [place], [address] FINGERSTICK GLU 211 mg/dL High 74-106 [facility] Comment on above: Result Comment: KODY GEMENT OF PATIENT CARE PER NURSING PROTOCOL Performed By: #### L 501.080 ####[facility] [address] [place], [address] FINGERSTICK GLU 99 mg/dL Normal 74-106 [facility] Comment on above: Result Comment: KODY STRONG OF PATIENT CARE PER NURSING PROTOCOL Performed By: #### L 501.080 ####[facility] [address] [place], [address] CBC W/Diff, Automatedon 08-3 0-2024 Absolute Lymph 0.61 X10 3/uL Low 0.83-4.51 [facility] Comment on above: Performed By: #### L 100.0100, L500.2500 ####[facility] [address] [place], [address] Absolute Neut 7.7 X10 3/uL Normal 2.0-7.7 [facility] Comment on above: Performed By: #### L 100.0100, L500.2500 ####[facility] [address] [place], [address] Basophils/100 WBC (Bld) 0.2 % Normal 0-1 [facility] Comment on above: Performed By: #### L 100.0100, L500.2500 ####[facility] [address] [place], [address] Eosinophils/100 WBC (Bld) 3.3 % Normal 0-5 [facility] Comment on above: Performed By: #### L 100.0100, L500.2500 ####[facility] [address] [place], [address] Erythrocyte distribution width (RBC) [Ratio] 17.0 % High 11.6-14.6 [facility] Comment on above: Performed By: #### L 100.0100, L500.2500 ####[facility] [address] [place], [address] Hematocrit (Bld) [Volume fraction] 28.6 % Low 40-54 [facility] Comment on above: Performed By: #### L 100.0100, L500.2500 ####[facility] [address] [place], [address] Hemoglobin (Bld) [Mass/Vol] 9.0 g/dL Low 13.0-16.5 [facility] Comment on above: Performed By: #### L 100.0100, L500.2500 ####[facility] [address] [place], [address] IG% 1.400 High 0.0-0.9 [facility] Comment on above: Result Comment: IG% - Immature Granulocytes (promyelocytes, myelocytes andmetamyelocytes) > 1% indicates that a LEFT SHIFT is Present. Performed By: #### L 100.0100, L500.2500 ####[facility] [address] [place], [address] Lymphocytes/100 WBC (Bld) 6.2 % Low 19-41 [facility] Comment on above: Performed By: #### L 100.0100, L500.2500 ####[facility] [address] [place], [address] MCH (RBC) [Entitic mass] 27.0 pg Normal 27.0-32.0 [facility] Comment on above: Performed By: #### L 100.0100, L500.2500 ####[facility] [address] [place], [address] MCHC (RBC) [Mass/Vol] 31.5 g/dL Low 32-36 [facility] Comment on above: Performed By: #### L 100.0100, L500.2500 ####[facility] [address] [place], [address] MCV (RBC) [Entitic vol] 85.9 fL Normal 80-94 [facility] Comment on above: Performed By: #### L 100.0100, L500.2500 ####[facility] [address] [place], [address] Monocytes/100 WBC (Bld) 11.2 % High 0-10 [facility] Comment on above: Performed By: #### L 100.0100, L500.2500 ####[facility] [address] [place], [address] Neutrophils/100 WBC (Bld) 77.7 % High 47-70 [facility] Comment on above: Performed By: #### L 100.0100, L500.2500 ####[facility] [address] [place], [address] Nucleated RBC (Bld) [#/Vol] 0 10*3/uL Normal 0-5 [facility] Comment on above: Performed By: #### L 100.0100, L500.2500 ####[facility] [address] [place], [address] Platelet mean volume (Bld) [Entitic vol] 10.5 fL Normal 6.2-12.0 [facility] Comment on above: Performed By: #### L 100.0100, L500.2500 ####[facility] [address] [place], [address] Platelets (Bld) [#/Vol] 186 10*3/uL Normal 150-450 [facility] Comment on above: Performed By: #### L 100.0100, L500.2500 ####[facility] [address] [place], [address] RBC (Bld) [#/Vol] 3.33 10*6/uL Low 4.6-6.2 [facility] Comment on above: Performed By: #### L 100.0100, L500.2500 ####[facility] [address] [place], [address] RDW SD 52.7 fl High 35.1-43.9 [facility] Comment on above: Performed By: #### L 100.0100, L500.2500 ####[facility] [address] [place], [address] WBC (Bld) [#/Vol] 9.9 10*3/uL Normal 4.4-11.0 [facility] Comment on above: Performed By: #### L 100.0100, L500.2500 ####[facility] [address] [place], [address] Absolute Neut Normal 2.0-7.7 [facility] Comment on above: Result Comment: Canc elled via OM: Order cancelled - Patient discharged Performed By: #### L 100.0100, L500.2500 ####[facility] [address] [place], [address] HCT Normal 40-54 [facility] Comment on above: Result Comment: Canc elled via OM: Order cancelled - Patient discharged Performed By: #### L 100.0100, L500.2500 ####[facility] [address] [place], [address] HGB Normal 13.0-16.5 [facility] Comment on above: Result Comment: Canc elled via OM: Order cancelled - Patient discharged Performed By: #### L 100.0100, L500.2500 ####[facility] [address] [place], [address] MCH Normal 27.0-32.0 [facility] Comment on above: Result Comment: Canc elled via OM: Order cancelled - Patient discharged Performed By: #### L 100.0100, L500.2500 ####[facility] [address] [place], [address] MCHC Normal 32-36 [facility] Comment on above: Result Comment: Canc elled via OM: Order cancelled - Patient discharged Performed By: #### L 100.0100, L500.2500 ####[facility] [address] [place], [address] MCV Normal 80-94 [facility] Comment on above: Result Comment: Canc elled via OM: Order cancelled - Patient discharged Performed By: #### L 100.0100, L500.2500 ####[facility] [address] [place], [address] NEUT% Normal 47-70 [facility] Comment on above: Result Comment: Canc elled via OM: Order cancelled - Patient discharged Performed By: #### L 100.0100, L500.2500 ####[facility] [address] [place], [address] PLT Normal 150-450 [facility] Comment on above: Result Comment: Canc elled via OM: Order cancelled - Patient discharged Performed By: #### L 100.0100, L500.2500 ####[facility] [facility] [id number] [place], [address] RBC Normal 4.6-6.2 [facility] Comment on above: Result Comment: Canc elled via OM: Order cancelled - Patient discharged Performed By: #### L 100.0100, L500.2500 ####[facility] [id number] [place], [address] RDW CV Normal 11.6-14.6 [facility] Comment on above: Result Comment: Canc elled via OM: Order cancelled - Patient discharged Performed By: #### L 100.0100, L500.2500 ####[facility] [address] [place], [address] RDW SD Normal 35.1-43.9 [facility] Comment on above: Result Comment: Canc elled via OM: Order cancelled - Patient discharged Performed By: #### L 100.0100, L500.2500 ####[facility] [address] [place], [address] WBC Normal 4.4-11.0 [facility] Comment on above: Result Comment: Canc elled via OM: Order cancelled - Patient discharged Performed By: #### L 100.0100, L500.2500 ####[facility] [id number] [place], [address] Carbon dioxide, total [Moles /volume] in Central venous bloodOrdered By: Valdez Olivo on 04-18-2025 CO2 [Moles/Vol] 36.0 mmol/L High 21.0-32.0 [facility] Chloride assayOrdered By: Aiden Olivo on 04-18-2025 Chloride [Moles/Vol] 89 mmol/L Low 98-108 [facility] Eosinophil percentageOrdered By: Valdez Olivo on 04-18-2025 Eosinophils/100 WBC (Bld) 3.3 % 0-5 [facility] Erythrocyte distribution wid th ratioOrdered By: Valdez Olivo on 04-18-2025 Erythrocyte distribution width (RBC) [Ratio] 17.0 % High 11.6-14.6 [facility] Erythrocyte distribution wid th standard deviationOrdered By: Valdez Olivo on 04-18-2025 Erythrocyte distribution width (RBC) [Ratio] 52.7 fl High 35.1-43.9 [facility] Glomerular filtration rate ( GFR) estimation/1.73 sq m using serum, plasma, or whole bOrdered By: Valdez Olivo on 04-18-2025 GFR/1.73 sq M.predicted among non-blacks MDRD (S/P/Bld) [Vol rate/Area] 39 mL/min/{1.73_m2} Low >60 [facility] Hematocrit Auto (Bld) [Volum e fraction]Ordered By: Valdez Olivo on 04-18-2025 Hematocrit (Bld) [Volume fraction] 28.6 % Low 40-54 [facility] Hemoglobin measurementOrdere d By: Valdez Olivo on 04-18-2025 Hemoglobin (Bld) [Mass/Vol] 9.0 g/dL Low 13.0-16.5 [facility] Immature granulocytes/100 WB C Auto (Bld)Ordered By: Valdez Olivo on 04-18-2025 Immature granulocytes/100 WBC (Bld) 1.400 % High 0.0-0.9 [facility] MCV (mean corpuscular volume ) determinationOrdered By: Valdez Olivo on 04-18-2025 MCV (RBC) [Entitic vol] 85.9 fL 80-94 [facility] Mean corpuscular hemoglobin (MCH) determinationOrdered By: Valdez Olivo on 04-18-2025 MCH (RBC) [Entitic mass] 27.0 pg 27.0-32.0 [facility] Monocyte percentageOrdered B y: Valdez Olivo on 04-18-2025 Monocytes/100 WBC (Bld) 11.2 % High 0-10 [facility] Neutrophil percentageOrdered By: Valdez Olivo on 04-18-2025 Neutrophils/100 WBC (Bld) 77.7 % High 47-70 [facility] Platelet countOrdered By: Aiden Olivo on 04-18-2025 Platelets (Bld) [#/Vol] 186 10*3/uL 150-450 [facility] Potassium measurement (mass/ volume)Ordered By: Valdez Olivo on 04-18-2025 Potassium (Unsp spec) [Mass/Vol] 3.4 mmol/L 3.3-5.1 [facility] RBC Auto (Bld) [#/Vol]Ordere d By: Valdez Olivo on 04-18-2025 RBC (Bld) [#/Vol] 3.33 10*6/uL Low 4.6-6.2 [facility] Serum creatinine measurement (mass/volume)Ordered By: Valdez Olivo on 04-18-2025 Creatinine [Mass/Vol] 1.73 mg/dL High 0.70-1.20 [facility] Serum glucose measurement (m ass/volume)Ordered By: Valdez Olivo on 04-18-2025 Glucose [Mass/Vol] 104 mg/dL High 70-99 [facility] Serum or plasma calcium kings[place] urement (mass/volume)Ordered By: Valdez Olivo 04-18-2025 Calcium [Mass/Vol] 9.1 mg/dL 7.6-11.0 [facility] Serum or plasma urea nitroge n measurement (mass/volume)Ordered By: Valdez Olivo 04-18-2025 Urea nitrogen [Mass/Vol] 43 mg/dL High 4-19 [facility] Sodium levelOrdered By: Valdez Olivo on 04-18-2025 Sodium [Moles/Vol] 137 mmol/L 133-145 [facility] White blood cell (WBC) count Ordered By: Valdez Olivo on 04-18-2025 WBC (Bld) [#/Vol] 9.9 10*3/uL 4.4-11.0 [facility] .Auto Diffon 04-17-2025 Basophil, Absolute 0.0 10 3/mcL Normal 0.0-0.3 [facility] Comment on above: Performed By: #### P ROBF, BFPR, PHBF, BFCT, GLUBF, LDBF #### [address] [address] Basophils/100 WBC (Bld) 0.6 % Normal 0.0-2.5 [facility] Comment on above: Performed By: #### P ROBF, BFPR, PHBF, BFCT, GLUBF, LDBF #### [address] [address] Eosinophil, Absolute 0.4 10 3/mcL Normal 0.0-0.7 [facility] Comment on above: Performed By: #### P ROBF, BFPR, PHBF, BFCT, GLUBF, LDBF #### [address] [address] Eosinophils/100 WBC (Bld) 4.2 % Normal 0.0-6.0 [facility] Comment on above: Performed By: #### P ROBF, BFPR, PHBF, BFCT, GLUBF, LDBF #### [address] [address] Lymphocyte, Absolute 0.5 10 3/mcL Low 0.9-4.3 [facility] Comment on above: Performed By: #### P ROBF, BFPR, PHBF, BFCT, GLUBF, LDBF #### [address] [address] Lymphocytes/100 WBC (Bld) 5.5 % Low 20.0-40.0 [facility] Comment on above: Performed By: #### P ROBF, BFPR, PHBF, BFCT, GLUBF, LDBF #### [facility] [address] [place] [address] Monocyte, Absolute 0.8 10 3/mcL Normal 0.1-1.4 [facility] Comment on above: Performed By: #### P ROBF, BFPR, PHBF, BFCT, GLUBF, LDBF #### [address] [address] Monocytes/100 WBC (Bld) 9.6 % Normal 2.0-13.0 [facility] Comment on above: Performed By: #### P ROBF, BFPR, PHBF, BFCT, GLUBF, LDBF #### [address] [address] Neutrophils/100 WBC (Bld) 80.1 % High 50.0-75.0 [facility] Comment on above: Performed By: #### P ROBF, BFPR, PHBF, BFCT, GLUBF, LDBF #### [address] [address] .GFRon 04-17-2025 Estimated Glomerular Filtration Rate 43 ml/min/1.73sqm Normal [facility] Comment on above: Result Comment: Stages [...] ROBF, BFPR, PHBF, BFCT, GLUBF, LDBF #### [address] [address] .NEUABSon 04-17-2025 Neutrophil, Absolute 7.1 10 3/mcL Normal 2.3-8.1 [facility] Comment on above: Performed By: #### P ROBF, BFPR, PHBF, BFCT, GLUBF, LDBF #### [address] [address] APTTon 04-17-2025 aPTT Coag (Bld) [Time] 73.1 s High 25.0-35.0 [facility] Comment on above: Result Comment: For Heparin anticoagulation therapy, the recommended therapeutic range is: 54-77 seconds (APTT Correlation with Anti-Xa therapeutic range of 0.3-0.7 units/ml). PLEASE REFERENCE THE PHARMACY PROTOCOL FOR DOSING. Performed By: #### P ROBF, BFPR, PHBF, BFCT, GLUBF, LDBF #### [place] [address] aPTT Coag (Bld) [Time] 68.5 s High 25.0-35.0 [facility] Comment on above: Result Comment: For Heparin anticoagulation therapy, the recommended therapeutic range is: 54-77 seconds (APTT Correlation with Anti-Xa therapeutic range of 0.3-0.7 units/ml). PLEASE REFERENCE THE PHARMACY PROTOCOL FOR DOSING. Performed By: #### P ROBF, BFPR, PHBF, BFCT, GLUBF, LDBF #### [place] [address] BFPRon 04-17-2025 Body Fluid Path Review Normal [facility] Comment on above: Order Comment: [...] ROBF, BFPR, PHBF, BFCT, GLUBF, LDBF #### [address] [address] Bedside Glucoseon 04-17-2025 FINGERSTICK GLU 191 mg/dL High 74-106 [facility] Comment on above: Result Comment: KODY TAE OF PATIENT CARE PER NURSING PROTOCOL Performed By: #### L 501.080 ####[facility] [id number] [place], [address] CBCon 04-17-2025 Erythrocyte distribution width (RBC) [Ratio] 18.3 % High 11.5-15.5 [facility] Comment on above: Performed By: #### P ROBF, BFPR, PHBF, BFCT, GLUBF, LDBF #### [place] [id number] Hematocrit (Bld) [Volume fraction] 27.4 % Low 40.0-52.0 [facility] Comment on above: Performed By: #### P ROBF, BFPR, PHBF, BFCT, GLUBF, LDBF #### [address] [address] Hgb 9.0 G/dL Low 13.0-17.5 [facility] Comment on above: Performed By: #### P ROBF, BFPR, PHBF, BFCT, GLUBF, LDBF #### [place] [id number] MCH (RBC) [Entitic mass] 27.3 pg Normal 27.0-33.0 [facility] Comment on above: Performed By: #### P ROBF, BFPR, PHBF, BFCT, GLUBF, LDBF #### [address] [address] MCHC 32.7 G/dL Normal 32.0-36.0 [facility] Comment on above: Performed By: #### P ROBF, BFPR, PHBF, BFCT, GLUBF, LDBF #### [address] [address] MCV (RBC) [Entitic vol] 83.4 fL Normal 81.0-100.0 [facility] Comment on above: Performed By: #### P ROBF, BFPR, PHBF, BFCT, GLUBF, LDBF #### [place] [id number] Platelet 163 10 3/mcL Normal 150-450 [facility] Comment on above: Performed By: #### P ROBF, BFPR, PHBF, BFCT, GLUBF, LDBF #### [place] [address] Platelet mean volume (Bld) [Entitic vol] 8.4 fL Normal 6.4-10.5 [facility] Comment on above: Performed By: #### P ROBF, BFPR, PHBF, BFCT, GLUBF, LDBF #### [place] [address] RBC 3.29 10 6/mcL Low 4.50-6.00 [facility] Comment on above: Performed By: #### P ROBF, BFPR, PHBF, BFCT, GLUBF, LDBF #### [place] [address] WBC 8.8 10 3/mcL Normal 4.5-10.8 [facility] Comment on above: Performed By: #### P ROBF, BFPR, PHBF, BFCT, GLUBF, LDBF #### [place] [address] CMPon 04-17-2025 Albumin Level 2.7 G/dL Low 3.2-4.8 [facility] Comment on above: Order Comment: vrb- called critical CO2 to RN Crystal Man 04/17/2025 06:09:20 EDT SAS Performed By: #### P ROBF, BFPR, PHBF, BFCT, GLUBF, LDBF #### [place] [address] Albumin/Globulin [Mass ratio] 0.8 {ratio} Low 0.9-1.6 [facility] Comment on above: Order Comment: vrb- called critical CO2 to RN Crystal Man 04/17/2025 06:09:20 EDT SAS Performed By: #### P ROBF, BFPR, PHBF, BFCT, GLUBF, LDBF #### [place] [address] ALP [Catalytic activity/Vol] 65 U/L Normal 38-126 [facility] Comment on above: Order Comment: vrb- called critical CO2 to RN Crystal Man 04/17/2025 06:09:20 EDT SAS Performed By: #### P ROBF, BFPR, PHBF, BFCT, GLUBF, LDBF #### [address] [address] ALT [Catalytic activity/Vol] 21 U/L Normal 12-55 [facility] Comment on above: Order Comment: vrb- called critical CO2 to RN Crystal Man 04/17/2025 06:09:20 EDT SAS Performed By: #### P ROBF, BFPR, PHBF, BFCT, GLUBF, LDBF #### [address] [address] AST [Catalytic activity/Vol] 16 U/L Normal 8-34 [facility] Comment on above: Order Comment: vrb- called critical CO2 to RN Crystal Man 04/17/2025 06:09:20 EDT SAS Performed By: #### P ROBF, BFPR, PHBF, BFCT, GLUBF, LDBF #### [place] [id number] Bili Total 0.40 mg/dL Normal 0.20-1.20 [facility] Comment on above: Order Comment: vrb- called critical CO2 to RN Crystal Man 04/17/2025 06:09:20 EDT SAS Result Comment: Use of this assay is not recommended for patients undergoing treatment with eltrombopag due to the potential for falsely elevated results. Performed By: #### P ROBF, BFPR, PHBF, BFCT, GLUBF, LDBF #### [address] [address] BUN/Creatinine Ratio 25.3 ratio High 10.0-22.0 [facility] Comment on above: Order Comment: vrb- called critical CO2 to RN Crystal Man 04/17/2025 06:09:20 EDT SAS Performed By: #### P ROBF, BFPR, PHBF, BFCT, GLUBF, LDBF #### [address] [address] Calcium [Mass/Vol] 9.4 mg/dL Normal 8.7-10.4 [facility] Comment on above: Order Comment: vrb- called critical CO2 to RN Crystal Man 04/17/2025 06:09:20 EDT SAS Performed By: #### P ROBF, BFPR, PHBF, BFCT, GLUBF, LDBF #### [address] [address] Chloride [Moles/Vol] 88 mmol/L Low 98-110 [facility] Comment on above: Order Comment: vrb- called critical CO2 to RN Crystal Man 04/17/2025 06:09:20 EDT SAS Performed By: #### P ROBF, BFPR, PHBF, BFCT, GLUBF, LDBF #### [address] [address] Creatinine [Mass/Vol] 1.62 mg/dL High 0.60-1.40 [facility] Comment on above: Order Comment: vrb- called critical CO2 to RN Crystal Man 04/17/2025 06:09:20 EDT SAS Result Comment: Test ing performed on [employer] analyzer using enzymatic creatinine methodology. Performed By: #### P ROBF, BFPR, PHBF, BFCT, GLUBF, LDBF #### [address] [address] Globulin 3.5 G/dL Normal 2.5-4.2 [facility] Comment on above: Order Comment: vrb- called critical CO2 to RN Crystal Man 04/17/2025 06:09:20 EDT SAS Performed By: #### P ROBF, BFPR, PHBF, BFCT, GLUBF, LDBF #### [address] [address] Glucose [Mass/Vol] 174 mg/dL High 82-115 [facility] Comment on above: Order Comment: vrb- called critical CO2 to RN Crystal Man 04/17/2025 06:09:20 EDT SAS Performed By: #### P ROBF, BFPR, PHBF, BFCT, GLUBF, LDBF #### [address] [address] Potassium [Moles/Vol] 3.7 mmol/L Normal 3.5-5.0 [facility] Comment on above: Order Comment: vrb- called critical CO2 to RN Crystal Man 04/17/2025 06:09:20 EDT SAS Performed By: #### P ROBF, BFPR, PHBF, BFCT, GLUBF, LDBF #### [address] [address] Sodium [Moles/Vol] 137 mmol/L Normal 136-145 [facility] Comment on above: Order Comment: vrb- called critical CO2 to RN Crystal Man 04/17/2025 06:09:20 EDT SAS Performed By: #### P ROBF, BFPR, PHBF, BFCT, GLUBF, LDBF #### [address] [address] Total Protein 6.2 G/dL Normal 5.7-8.2 [facility] Comment on above: Order Comment: vrb- called critical CO2 to RN Crystal Man 04/17/2025 06:09:20 EDT SAS Performed By: #### P ROBF, BFPR, PHBF, BFCT, GLUBF, LDBF #### [address] [address] Urea nitrogen [Mass/Vol] 41.0 mg/dL High 8.0-22.0 [facility] Comment on above: Order Comment: vrb- called critical CO2 to KHURRAM Man 04/17/2025 06:09:20 EDT SAS Performed By: #### P ROBF, BFPR, PHBF, BFCT, GLUBF, LDBF #### [address] [address] CO2 [Moles/Vol] mmol/L Critically abnormal 22-32 [facility] Comment on above: Order Comment: vrb- called critical CO2 to RN Crystal Man 04/17/2025 06:09:20 EDT SAS Performed By: #### P ROBF, BFPR, PHBF, BFCT, GLUBF, LDBF #### [address] [address] Electrolyte Balance See Comment Normal 4.0-15.0 [facility] Comment on above: Order Comment: vrb- called critical CO2 to KHURRAM Crystal Man 04/17/2025 06:09:20 EDT SAS Result Comment: Unab le to calculate this test result accurately. Results used to calculate this test are outside the reportable range. Performed By: #### P ROBF, BFPR, PHBF, BFCT, GLUBF, LDBF #### [place] [address] FT4on 04-17-2025 Free T4 [Mass/Vol] 0.88 ng/dL Low 0.89-1.76 [facility] Comment on above: Order Comment: Order ed by Discern Result Comment: No te - New Reference Range in effect 20 Performed By: #### P ROBF, BFPR, PHBF, BFCT, GLUBF, LDBF #### [address] [address] LABORATORYOrdered By: SYSTEM SYSTEM on 04-17-2025 aPTT Coag (Bld) [Time] 73.1 s High 25.0 - 35.0 seconds [facility] Comment on above: Interpretive Data: F or Heparin anticoagulation therapy, the recommended therapeutic range is: 54-77 seconds (APTT Correlation with Anti-Xa therapeutic range of 0.3-0.7 units/ml). PLEASE REFERENCE THE PHARMACY PROTOCOL FOR DOSING. Albumin BCP dye [Mass/Vol] 2.7 G/dL Low 3.2 - 4.8 G/dL ADM [...] 0.0 103/mcL Normal 0.0 - 0.3 10^3/mcL [facility] Workflow SS Basophils/100 WBC (Bld) 0.6 % Normal 0.0 - 2.5 % AH Workflow SS Bilirubin [Mass/Vol] 0.40 mg/dL Normal [...] above: Interpretive Data: T esting performed on [employer] analyzer using enzymatic creatinine methodology. Eosinophils (Bld) [...] Glucose Testing Reason Routine (04/17/25 11:08 AM) [facility] Work Phone: Glucose [Mass/Vol] 276 mg/dL High 82 - 115 mg/dL [facility] Work Phone: Blood Glucose Testing Reason Routine (04/17/25 7:57 AM) [facility] Work Phone: Glucose [Mass/Vol] 171 mg/dL High 82 - 115 mg/dL [facility] Work Phone: LABORATORYOrdered By: Lisa Mandel [...] 04-17-2025 Magnesium [Mass/Vol] 1.8 mg/dL Normal 1.6-2.4 [facility] Comment on above: Performed By: #### P ROBF, BFPR, PHBF, BFCT, GLUBF, LDBF #### [facility] [address] [place] [address] Non-Clinic Physician Director Cytology Reporton Non-Clinic Physician Director Cytology Report . Pathology Reports Accession: Collected Date/Time: Received Date/Time: Pathologist: [id number] 04/15/2025 10:30 EDT 04/16/2025 08:56 EDT MÓNICA VIEIRA MD Non-Clinic Physician Director Cytology Report CLINICAL INFORMATION: Pleural effusion DIAGNOSTIC CATEGORY: NEGATIVE FOR MALIGNANCY. SPECIMEN: Right pleural fluid GROSS DESCRIPTION: # of Blocks: 1 # of Monolayers: 1 Volume (ml) 950 Color: fresh cloudy red/orange fluid Verified by Pathology Report verified by [facility] Screened by: ANMOL DW Electronically signed by MÓNICA VIEIRA Sign-Out Date: 04/17/2025 14:51 Performing Lab: [facility], [address] [place] [address] Pathology Dept Disclaimer If ancillary studies were utilized, the following Laboratory Developed Test (LDT) disclaimer will apply: Under CLIA requirements, [facility] is qualified to perform high complexity testing. For all ancillary stains, positive and negative controls stain appropriately. Performance characteristics of immunohistochemical and chromogenic in-situ hybridization tests have been determined by [facility]. These tests are used for clinical purposes, They should not be regarded as investigational or for research. Normal [facility] TSHRon 04-17-2025 TSH 4.806 mIU/mL High 0.550-4.78 0 [facility] Comment on above: Performed By: #### P ROBF, BFPR, PHBF, BFCT, GLUBF, LDBF #### [place] [address] XR CHEST 1 VIEWon 04-17-2025 XR CHEST [...] Kristen Maki MD Electronically signed By Kristen aMki MD Dictated Date: 04/17/2025 8:00:40 AM Prelim Date: 04/17/2025 8:12:37 AM Sign Date: 04/17/2025 8:12:37 AM Ordering Provider: GLORIA Francois [facility] .Auto Diffon 04-16-2025 Basophil, Absolute 0.0 10 3/mcL Normal 0.0-0.3 [facility] Comment on above: Performed By: #### P ROBF, BFPR, PHBF, BFCT, GLUBF, LDBF #### [address] [address] Basophils/100 WBC (Bld) 0.1 % Normal 0.0-2.5 [facility] Comment on above: Performed By: #### P ROBF, BFPR, PHBF, BFCT, GLUBF, LDBF #### [address] [address] Eosinophil, Absolute 0.5 10 3/mcL Normal 0.0-0.7 [facility] Comment on above: Performed By: #### P ROBF, BFPR, PHBF, BFCT, GLUBF, LDBF #### [address] [address] Eosinophils/100 WBC (Bld) 5.3 % Normal 0.0-6.0 [facility] Comment on above: Performed By: #### P ROBF, BFPR, PHBF, BFCT, GLUBF, LDBF #### [address] [address] Lymphocyte, Absolute 0.4 10 3/mcL Low 0.9-4.3 [facility] Comment on above: Performed By: #### P ROBF, BFPR, PHBF, BFCT, GLUBF, LDBF #### [address] [address] Lymphocytes/100 WBC (Bld) 4.8 % Low 20.0-40.0 [facility] Comment on above: Performed By: #### P ROBF, BFPR, PHBF, BFCT, GLUBF, LDBF #### [address] [address] Monocyte, Absolute 0.7 10 3/mcL Normal 0.1-1.4 [facility] Comment on above: Performed By: #### P ROBF, BFPR, PHBF, BFCT, GLUBF, LDBF #### [address] [address] Monocytes/100 WBC (Bld) 8.3 % Normal 2.0-13.0 [facility] Comment on above: Performed By: #### P ROBF, BFPR, PHBF, BFCT, GLUBF, LDBF #### [address] [address] Neutrophils/100 WBC (Bld) 81.5 % High 50.0-75.0 [facility] Comment on above: Performed By: #### P ROBF, BFPR, PHBF, BFCT, GLUBF, LDBF #### [address] [address] .GFRon 04-16-2025 Estimated Glomerular Filtration Rate 48 ml/min/1.73sqm Normal [facility] Comment on above: Result Comment: Stages [...] ROBF, BFPR, PHBF, BFCT, GLUBF, LDBF #### [address] [address] .NEUABSon 04-16-2025 Neutrophil, Absolute 7.3 10 3/mcL Normal 2.3-8.1 [facility] Comment on above: Performed By: #### P ROBF, BFPR, PHBF, BFCT, GLUBF, LDBF #### [place] [address] APTTon 04-16-2025 aPTT Coag (Bld) [Time] 63.1 s High 25.0-35.0 [facility] Comment on above: Result Comment: For Heparin anticoagulation therapy, the recommended therapeutic range is: 54-77 seconds (APTT Correlation with Anti-Xa therapeutic range of 0.3-0.7 units/ml). PLEASE REFERENCE THE PHARMACY PROTOCOL FOR DOSING. Performed By: #### P ROBF, BFPR, PHBF, BFCT, GLUBF, LDBF #### [place] [address] aPTT Coag (Bld) [Time] 55.6 s High 25.0-35.0 [facility] Comment on above: Result Comment: For Heparin anticoagulation therapy, the recommended therapeutic range is: 54-77 seconds (APTT Correlation with Anti-Xa therapeutic range of 0.3-0.7 units/ml). PLEASE REFERENCE THE PHARMACY PROTOCOL FOR DOSING. Performed By: #### A PTT #### [place] [address] CBCon 04-16-2025 Erythrocyte distribution width (RBC) [Ratio] 18.8 % High 11.5-15.5 [facility] Comment on above: Performed By: #### P ROBF, BFPR, PHBF, BFCT, GLUBF, LDBF #### [place] [address] Hematocrit (Bld) [Volume fraction] 27.9 % Low 40.0-52.0 [facility] Comment on above: Performed By: #### P ROBF, BFPR, PHBF, BFCT, GLUBF, LDBF #### [place] [address] Hgb 9.1 G/dL Low 13.0-17.5 [facility] Comment on above: Performed By: #### P ROBF, BFPR, PHBF, BFCT, GLUBF, LDBF #### [place] [id number] MCH (RBC) [Entitic mass] 27.8 pg Normal 27.0-33.0 [facility] Comment on above: Performed By: #### P ROBF, BFPR, PHBF, BFCT, GLUBF, LDBF #### [place] [address] MCHC 32.8 G/dL Normal 32.0-36.0 [facility] Comment on above: Performed By: #### P ROBF, BFPR, PHBF, BFCT, GLUBF, LDBF #### [place] [address] MCV (RBC) [Entitic vol] 84.7 fL Normal 81.0-100.0 [facility] Comment on above: Performed By: #### P ROBF, BFPR, PHBF, BFCT, GLUBF, LDBF #### [place] [address] Platelet 158 10 3/mcL Normal 150-450 [facility] Comment on above: Performed By: #### P ROBF, BFPR, PHBF, BFCT, GLUBF, LDBF #### [place] [address] Platelet mean volume (Bld) [Entitic vol] 8.7 fL Normal 6.4-10.5 [facility] Comment on above: Performed By: #### P ROBF, BFPR, PHBF, BFCT, GLUBF, LDBF #### [place] [address] RBC 3.29 10 6/mcL Low 4.50-6.00 [facility] Comment on above: Performed By: #### P ROBF, BFPR, PHBF, BFCT, GLUBF, LDBF #### [place] [address] WBC 9.0 10 3/mcL Normal 4.5-10.8 [facility] Comment on above: Performed By: #### P ROBF, BFPR, PHBF, BFCT, GLUBF, LDBF #### [place] [address] CMPon 04-16-2025 Albumin Level 2.6 G/dL Low 3.2-4.8 [facility] Comment on above: Performed By: #### P ROBF, BFPR, PHBF, BFCT, GLUBF, LDBF #### [place] [address] Albumin/Globulin [Mass ratio] 0.8 {ratio} Low 0.9-1.6 [facility] Comment on above: Performed By: #### P ROBF, BFPR, PHBF, BFCT, GLUBF, LDBF #### [place] [address] ALP [Catalytic activity/Vol] 59 U/L Normal 38-126 [facility] Comment on above: Performed By: #### P ROBF, BFPR, PHBF, BFCT, GLUBF, LDBF #### [place] [address] ALT [Catalytic activity/Vol] 23 U/L Normal 12-55 [facility] Comment on above: Performed By: #### P ROBF, BFPR, PHBF, BFCT, GLUBF, LDBF #### [place] [address] AST [Catalytic activity/Vol] 17 U/L Normal 8-34 [facility] Comment on above: Performed By: #### P ROBF, BFPR, PHBF, BFCT, GLUBF, LDBF #### [place] [address] Bili Total 0.50 mg/dL Normal 0.20-1.20 [facility] Comment on above: Result Comment: Use of this assay is not recommended for patients undergoing treatment with eltrombopag due to the potential for falsely elevated results. Performed By: #### P ROBF, BFPR, PHBF, BFCT, GLUBF, LDBF #### [place] [address] BUN/Creatinine Ratio 22.6 ratio High 10.0-22.0 [facility] Comment on above: Performed By: #### P ROBF, BFPR, PHBF, BFCT, GLUBF, LDBF #### [place] [address] Calcium [Mass/Vol] 9.2 mg/dL Normal 8.7-10.4 [facility] Comment on above: Performed By: #### P ROBF, BFPR, PHBF, BFCT, GLUBF, LDBF #### [place] [address] Chloride [Moles/Vol] 91 mmol/L Low 98-110 [facility] Comment on above: Performed By: #### P ROBF, BFPR, PHBF, BFCT, GLUBF, LDBF #### [place] [id number] CO2 [Moles/Vol] 38 mmol/L High 22-32 [facility] Comment on above: Performed By: #### P ROBF, BFPR, PHBF, BFCT, GLUBF, LDBF #### [place] [address] Creatinine [Mass/Vol] 1.46 mg/dL High 0.60-1.40 [facility] Comment on above: Result Comment: Test ing performed on S[employer] analyzer using enzymatic creatinine methodology. Performed By: #### P ROBF, BFPR, PHBF, BFCT, GLUBF, LDBF #### [place] [address] Electrolyte Balance 9.0 mEq/L Normal 4.0-15.0 [facility] Comment on above: Performed By: #### P ROBF, BFPR, PHBF, BFCT, GLUBF, LDBF #### [place] [address] Globulin 3.2 G/dL Normal 2.5-4.2 [facility] Comment on above: Performed By: #### P ROBF, BFPR, PHBF, BFCT, GLUBF, LDBF #### [place] [address] Glucose [Mass/Vol] 144 mg/dL High 82-115 [facility] Comment on above: Performed By: #### P ROBF, BFPR, PHBF, BFCT, GLUBF, LDBF #### [place] [id number] Potassium [Moles/Vol] 3.7 mmol/L Normal 3.5-5.0 [facility] Comment on above: Performed By: #### P ROBF, BFPR, PHBF, BFCT, GLUBF, LDBF #### [facility] [address] [place] [address] Sodium [Moles/Vol] 138 mmol/L Normal 136-145 [facility] Comment on above: Performed By: #### P ROBF, BFPR, PHBF, BFCT, GLUBF, LDBF #### [facility] [address] [place] [address] Total Protein 5.8 G/dL Normal 5.7-8.2 [facility] Comment on above: Performed By: #### P ROBF, BFPR, PHBF, BFCT, GLUBF, LDBF #### [facility] [address] [place] [address] Urea nitrogen [Mass/Vol] 33.0 mg/dL High 8.0-22.0 [facility] Comment on above: Performed By: #### P ROBF, BFPR, PHBF, BFCT, GLUBF, LDBF #### [address] [address] LABORATORYOrdered By: Mónica Brown on 04-16-2025 Blood Glucose Testing Reason Routine (04/16/25 9:15 PM) [facility] Work Phone: Glucose [Mass/Vol] 207 mg/dL High 82 - 115 mg/dL [facility] Work Phone: LABORATORYOrdered By: SYSTEM SYSTEM [...] above: Interpretive Data: T esting performed on S[employer] analyzer using enzymatic creatinine methodology. Electrolyte Balance [...] - 6.00 10^6/mcL Workflow SS Sodium [Moles/Vol] 138 mmol/L Normal 136 - 145 mEq/L ADM SS Urea nitrogen [Mass/Vol] 33.0 mg/dL High 8.0 - 22.0 mg/dL ADM SS Urea nitrogen/Creatinine [Mass ratio] 22.6 ratio High 10.0 - 22.0 ratio ADM SS WBC (Bld) [#/Vol] 9.0 103/mcL Normal 4.5 - 10.8 10^3/mcL Workflow SS MGon 04-16-2025 Magnesium [Mass/Vol] 1.8 mg/dL Normal 1.6-2.4 [facility] Comment on above: Performed By: #### P ROBF, BFPR, PHBF, BFCT, GLUBF, LDBF #### [address] [address] .Auto Diffon 04-15-2025 Basophil, Absolute 0.0 10 3/mcL Normal 0.0-0.3 [facility] Comment on above: Performed By: #### P ROBF, BFPR, PHBF, BFCT, GLUBF, LDBF #### [address] [address] Basophils/100 WBC (Bld) 0.1 % Normal 0.0-2.5 [facility] Comment on above: Performed By: #### P ROBF, BFPR, PHBF, BFCT, GLUBF, LDBF #### [address] [address] Eosinophil, Absolute 0.4 10 3/mcL Normal 0.0-0.7 [facility] Comment on above: Performed By: #### P ROBF, BFPR, PHBF, BFCT, GLUBF, LDBF #### [address] [address] Eosinophils/100 WBC (Bld) 4.1 % Normal 0.0-6.0 [facility] Comment on above: Performed By: #### P ROBF, BFPR, PHBF, BFCT, GLUBF, LDBF #### [address] [address] Lymphocyte, Absolute 0.4 10 3/mcL Low 0.9-4.3 [facility] Comment on above: Performed By: #### P ROBF, BFPR, PHBF, BFCT, GLUBF, LDBF #### [address] [address] Lymphocytes/100 WBC (Bld) 4.5 % Low 20.0-40.0 [facility] Comment on above: Performed By: #### P ROBF, BFPR, PHBF, BFCT, GLUBF, LDBF #### [address] [address] Monocyte, Absolute 0.8 10 3/mcL Normal 0.1-1.4 [facility] Comment on above: Performed By: #### P ROBF, BFPR, PHBF, BFCT, GLUBF, LDBF #### [address] [address] Monocytes/100 WBC (Bld) 8.5 % Normal 2.0-13.0 [facility] Comment on above: Performed By: #### P ROBF, BFPR, PHBF, BFCT, GLUBF, LDBF #### [address] [address] Neutrophils/100 WBC (Bld) 82.8 % High 50.0-75.0 [facility] Comment on above: Performed By: #### P ROBF, BFPR, PHBF, BFCT, GLUBF, LDBF #### [address] [address] .GFRon 04-15-2025 Estimated Glomerular Filtration Rate 50 ml/min/1.73sqm Normal [facility] Comment on above: Result Comment: Stages [...] ROBF, BFPR, PHBF, BFCT, GLUBF, LDBF #### [address] [address] .NEUABSon 04-15-2025 Neutrophil, Absolute 7.8 10 3/mcL Normal 2.3-8.1 [facility] Comment on above: Performed By: #### P ROBF, BFPR, PHBF, BFCT, GLUBF, LDBF #### [place] [id number] APTTon 04-15-2025 aPTT Coag (Bld) [Time] 55.0 s High 25.0-35.0 [facility] Comment on above: Result Comment: For Heparin anticoagulation therapy, the recommended therapeutic range is: 54-77 seconds (APTT Correlation with Anti-Xa therapeutic range of 0.3-0.7 units/ml). PLEASE REFERENCE THE PHARMACY PROTOCOL FOR DOSING. Performed By: #### P ROBF, BFPR, PHBF, BFCT, GLUBF, LDBF #### [place] [address] BFCTon 04-15-2025 Cells Counted BF 100 Normal [facility] Comment on above: Performed By: #### P ROBF, BFPR, PHBF, BFCT, GLUBF, LDBF #### [place] [id number] Lymphocytes/100 WBC (Bld) 47 % Normal [facility] Comment on above: Performed By: #### P ROBF, BFPR, PHBF, BFCT, GLUBF, LDBF #### [place] [address] Mesothelial Cell % BF 4 % Normal [facility] Comment on above: Performed By: #### P ROBF, BFPR, PHBF, BFCT, GLUBF, LDBF #### [address] [address] Mononuclear cell % BF 1 % Normal [facility] Comment on above: Performed By: #### P ROBF, BFPR, PHBF, BFCT, GLUBF, LDBF #### [address] [address] Neutrophils/100 WBC (Bld) 48 % Normal [facility] Comment on above: Performed By: #### P ROBF, BFPR, PHBF, BFCT, GLUBF, LDBF #### [address] [address] Total Nucleated Cells 172 /mm3 Normal [facility] Comment on above: Performed By: #### P ROBF, BFPR, PHBF, BFCT, GLUBF, LDBF #### [place] [address] Body Fluid Source Pleural fluid Normal [facility] Comment on above: Result Comment: Refe rence ranges have not been established for this body fluid. The test results must be integrated into the clinical context for interpretation. Performed By: #### P ROBF, BFPR, PHBF, BFCT, GLUBF, LDBF #### [address] [address] BMPon 04-15-2025 BUN/Creatinine Ratio 30.8 ratio High 10.0-22.0 [facility] Comment on above: Performed By: #### P ROBF, BFPR, PHBF, BFCT, GLUBF, LDBF #### [address] [address] Calcium [Mass/Vol] 8.7 mg/dL Normal 8.7-10.4 [facility] Comment on above: Performed By: #### P ROBF, BFPR, PHBF, BFCT, GLUBF, LDBF #### [address] [address] Chloride [Moles/Vol] 94 mmol/L Low 98-110 [facility] Comment on above: Performed By: #### P ROBF, BFPR, PHBF, BFCT, GLUBF, LDBF #### [address] [address] CO2 [Moles/Vol] 39 mmol/L High 22-32 [facility] Comment on above: Performed By: #### P ROBF, BFPR, PHBF, BFCT, GLUBF, LDBF #### [address] [address] Creatinine [Mass/Vol] 1.43 mg/dL High 0.60-1.40 [facility] Comment on above: Result Comment: Test ing performed on [employer] analyzer using enzymatic creatinine methodology. Performed By: #### P ROBF, BFPR, PHBF, BFCT, GLUBF, LDBF #### [address] [address] Electrolyte Balance 7.0 mEq/L Normal 4.0-15.0 [facility] Comment on above: Performed By: #### P ROBF, BFPR, PHBF, BFCT, GLUBF, LDBF #### [address] [address] Glucose [Mass/Vol] 134 mg/dL High 82-115 [facility] Comment on above: Performed By: #### P ROBF, BFPR, PHBF, BFCT, GLUBF, LDBF #### [address] [address] Potassium [Moles/Vol] 3.8 mmol/L Normal 3.5-5.0 [facility] Comment on above: Performed By: #### P ROBF, BFPR, PHBF, BFCT, GLUBF, LDBF #### [address] [address] Sodium [Moles/Vol] 140 mmol/L Normal 136-145 [facility] Comment on above: Performed By: #### P ROBF, BFPR, PHBF, BFCT, GLUBF, LDBF #### [address] [address] Urea nitrogen [Mass/Vol] 44.0 mg/dL High 8.0-22.0 [facility] Comment on above: Performed By: #### P ROBF, BFPR, PHBF, BFCT, GLUBF, LDBF #### [address] [address] CBCon 04-15-2025 Erythrocyte distribution width (RBC) [Ratio] 17.9 % High 11.5-15.5 [facility] Comment on above: Performed By: #### P ROBF, BFPR, PHBF, BFCT, GLUBF, LDBF #### [place] [address] Hematocrit (Bld) [Volume fraction] 26.7 % Low 40.0-52.0 [facility] Comment on above: Performed By: #### P ROBF, BFPR, PHBF, BFCT, GLUBF, LDBF #### [place] [address] Hgb 8.6 G/dL Low 13.0-17.5 [facility] Comment on above: Performed By: #### P ROBF, BFPR, PHBF, BFCT, GLUBF, LDBF #### [place] [address] MCH (RBC) [Entitic mass] 26.9 pg Low 27.0-33.0 [facility] Comment on above: Performed By: #### P ROBF, BFPR, PHBF, BFCT, GLUBF, LDBF #### [place] [address] MCHC 32.1 G/dL Normal 32.0-36.0 [facility] Comment on above: Performed By: #### P ROBF, BFPR, PHBF, BFCT, GLUBF, LDBF #### [place] [address] MCV (RBC) [Entitic vol] 83.9 fL Normal 81.0-100.0 [facility] Comment on above: Performed By: #### P ROBF, BFPR, PHBF, BFCT, GLUBF, LDBF #### [place] [address] Platelet 169 10 3/mcL Normal 150-450 [facility] Comment on above: Performed By: #### P ROBF, BFPR, PHBF, BFCT, GLUBF, LDBF #### [place] [address] Platelet mean volume (Bld) [Entitic vol] 8.2 fL Normal 6.4-10.5 [facility] Comment on above: Performed By: #### P ROBF, BFPR, PHBF, BFCT, GLUBF, LDBF #### [place] [address] RBC 3.18 10 6/mcL Low 4.50-6.00 [facility] Comment on above: Performed By: #### P ROBF, BFPR, PHBF, BFCT, GLUBF, LDBF #### [place] [address] WBC 9.4 10 3/mcL Normal 4.5-10.8 [facility] Comment on above: Performed By: #### P ROBF, BFPR, PHBF, BFCT, GLUBF, LDBF #### [place] [address] GLUBFon 04-15-2025 Glucose Body Fluid Spec Type Pleural fluid Normal [facility] Comment on above: Result Comment: The reference interval(s) and other method performance specifications have not been established for this body fluid. The test result must be integrated into the clinical content for interpretation. Performed By: #### P ROBF, BFPR, PHBF, BFCT, GLUBF, LDBF #### [place] [address] Glucose BF 191.0 mg/dL Normal [facility] Comment on above: Performed By: #### P ROBF, BFPR, PHBF, BFCT, GLUBF, LDBF #### [place] [address] HFPon 04-15-2025 Bili Indirect 0.2 mg/dL Normal 0.1-10.0 [facility] Comment on above: Performed By: #### T MADHAVI #### [place] [address] Albumin Level 2.9 G/dL Low 3.2-4.8 [facility] Comment on above: Performed By: #### T MADHAVI #### [place] [address] Albumin/Globulin [Mass ratio] 0.8 {ratio} Low 0.9-1.6 [facility] Comment on above: Performed By: #### T MADHAVI #### [place] [address] ALP [Catalytic activity/Vol] 65 U/L Normal 38-126 [facility] Comment on above: Performed By: #### T MADHAVI #### [place] [address] ALT [Catalytic activity/Vol] 29 U/L Normal 12-55 [facility] Comment on above: Performed By: #### T MADHAVI #### [place] [address] AST [Catalytic activity/Vol] 23 U/L Normal 8-34 [facility] Comment on above: Performed By: #### T MADHAVI #### [place] [address] Bili Direct 0.2 mg/dL Normal 0.0-0.4 [facility] Comment on above: Result Comment: Use of this assay is not recommended for patients undergoing treatment with eltrombopag due to the potential for falsely elevated results. Performed By: #### T MADHAVI #### [place] [address] Bili Total 0.40 mg/dL Normal 0.20-1.20 [facility] Comment on above: Result Comment: Use of this assay is not recommended for patients undergoing treatment with eltrombopag due to the potential for falsely elevated results. Performed By: #### T MADHAVI #### [place] [address] Globulin 3.6 G/dL Normal 2.5-4.2 [facility] Comment on above: Performed By: #### T MADHAVI #### [address] [place], [place] [address] Total Protein 6.5 G/dL Normal 5.7-8.2 [facility] Comment on above: Performed By: #### T [facility] #### [address] [address] LABORATORYOrdered By: SYSTEM SYSTEM on 04-15-2025 Albumin [...] 0.1 % Normal 0.0 - 2.5 % AH Workflow SS Calcium [Mass/Vol] 8.7 mg/dL Normal 8.7 - 10. 4 mg/dL ADM SS Chloride [Moles/Vol] 94 mmol/L Low 98 - 11 0 mEq/L ADM SS CO2 [Moles/Vol] 39 mmol/L High 22 - 32 mEq/L ADM SS Creatinine [Mass/Vol] 1.43 mg/dL High 0.60 - 1.40 mg/dL ADM SS Comment on above: Interpretive Data: T esting performed on [employer] analyzer using enzymatic creatinine methodology. Electrolyte Balance [...] 4.5 % Low 20.0 - 40.0 % AH Workflow SS Magnesium [Mass/Vol] 1.8 mg/dL Normal 1.6 - 2 .4 mg/dL AH ADM SS MCH (RBC) [Entitic mass] 26.9 [...] pH (Bld) 7.4 [pH] Invalid Interpretation Code Main Rapid Comm SS Comment on above: Result Comment: righ t pH BF Type Pleural fluid 26 (04/15/25 10:30 AM) Normal Chemistry S Comment on above: Interpretive Data: T he reference interval(s) and other method performance specifications have not been established for this body fluid. The test result must be integrated into the clinical content for interpretation. LDBFon 04-15-2025 LDH Body Fluid Spec Type Pleural fluid Normal [facility] Comment on above: Result Comment: The reference interval(s) and other method performance specifications have not been established for this body fluid. The test result must be integrated into the clinical content for interpretation. . Performed By: #### P ROBF, BFPR, PHBF, BFCT, GLUBF, LDBF #### [address] [address] LDH BF 137.0 U/L Normal [facility] Comment on above: Performed By: #### P ROBF, BFPR, PHBF, BFCT, GLUBF, LDBF #### [address] [address] LDHon 04-15-2025 LDH 216 U/L Normal 120-246 [facility] Comment on above: Performed By: #### T ROPHS #### [address] [address] MGon 04-15-2025 Magnesium [Mass/Vol] 1.8 mg/dL Normal 1.6-2.4 [facility] Comment on above: Performed By: #### P ROBF, BFPR, PHBF, BFCT, GLUBF, LDBF #### [address] [address] No Panel Informationon 04-15 AFS Acid Fast Smear from Concentrated Specimen: Negative [facility] Work Phone: Culture Body Fluid Culture has been rec eived in lab and is no growth to date. Routine cultures are held for 5 days. [facility] Work Phone: FUNSM No fungal elements observed by calcofluor white stain. [facility] Work Phone: GS Sedimented 1+ Polymorphonuclear cells 1+ Mononuclear cells No organisms seen. [facility] Work Phone: Non-Clinic Physician Director Cytology Reporton Non-Clinic Physician Director Cytology Report Event Display: N G Specimen Right pleural fluid MÓNICA VIEIRA MD:VERIFY; Authored Date: [facility] Work Phone: Non-Clinic Physician Director Cytology Report Event Display: N G Signature Pathology Report verified by [facility] Screened by: ANMOL GARCIA Electronically signed by MÓNICA VIEIRA Sign-Out Date: 04/17/2025 14:51 Performing Lab: [facility], [address] [place] [address] Pathology Dept MÓNICA VIEIRA MD:VERIFY; Authored Date: [facility] Work Phone: Non-Clinic Physician Director Cytology Report Event Display: N G Clin Info Pleural effusion MÓNICA VIEIRA MD:VERIFY; Authored Date: [facility] Work Phone: Non-Clinic Physician Director Cytology Report Event Display: N G Diagnostic Category Interp NEGATIVE FOR MALIGNANCY. MÓNICA VIEIRA MD:VERIFY; Authored Date: [facility] Work Phone: Non-Clinic Physician Director Cytology Report Event Display: N G Gross # of Blocks: 1 # of Monolayers: 1 Volume (ml) 950 Color: fresh cloudy red/orange fluid MÓNICA VIEIRA MD:VERIFY; Authored Date: [facility] Work Phone: Non-Clinic Physician Director Cytology Report Event Display: N G Disclaimer If ancillary studies were utilized, the following Laboratory Developed Test (LDT) disclaimer will apply: Under CLIA requirements, [facility] is qualified to perform high complexity testing. For all ancillary stains, positive and negative controls stain appropriately. Performance characteristics of immunohistochemical and chromogenic in-situ hybridization tests have been determined by [facility]. These tests are used for clinical purposes, They should not be regarded as investigational or for research. MÓNICA VIEIRA MD:VERIFY; Authored Date: [facility] Work Phone: PBNPon 04-15-2025 Natriuretic peptide B (Bld) [Mass/Vol] 4360 pg/mL High 0-1800 [facility] Comment on above: Performed By: #### P ROBF, BFPR, PHBF, BFCT, GLUBF, LDBF #### [place] [address] PHBFon 04-15-2025 pH BF 7.4 Normal [facility] Comment on above: Result Comment: domingo becerril Performed By: #### P ROBF, BFPR, PHBF, BFCT, GLUBF, LDBF #### [place] [address] pH BF Spec Type Pleural fluid Normal [facility] Comment on above: Result Comment: The reference interval(s) and other method performance specifications have not been established for this body fluid. The test result must be integrated into the clinical content for interpretation. Performed By: #### P ROBF, BFPR, PHBF, BFCT, GLUBF, LDBF #### [place] [address] PROBFon 04-15-2025 Protein BF Type Pleural fluid Normal [facility] Comment on above: Result Comment: The reference interval(s) and other method performance specifications have not been established for this body fluid. The test result must be integrated into the clinical content for interpretation. Performed By: #### P ROBF, BFPR, PHBF, BFCT, GLUBF, LDBF #### [place] [address] Protein BF <2.0 Normal [facility] Comment on above: Performed By: #### P ROBF, BFPR, PHBF, BFCT, GLUBF, LDBF #### [place] [address] XR CHEST 1 VIEWon 04-15-2025 XR CHEST 1 VIEW ORIGINAL EXAMINATION: ONE XRAY VIEW OF THE CHEST04/15/2025 11:36 am Portable upright COMPARISON: Same day HISTORY: ORDERING SYSTEM PROVIDED HISTORY: Reason for Exam: s/p RIGHT thoracentesis, FINDINGS: Right pleural effusion has decreased. No pneumothorax is seen. No other significant change. IMPRESSION: No postprocedure pneumothorax. Interpreted by: Shahabz Foley MD Preliminary Report By: Shahbaz Foley MD Electronically signed By Shahbaz Foley MD Dictated Date: 04/15/2025 11:43:16 AM Prelim Date: 04/15/2025 11:43:46 AM Sign Date: 04/15/2025 11:43:46 AM Ordering Provider: OLAMIDE GONZALEZ [facility] XR CHEST 1 VIEW ORIGINAL EXAMINATION: ONE [...] 7:22:03 AM Ordering Provider: GLORIA DAVIS [facility] .Auto Diffon 04-14-2025 Basophil, Absolute 0.0 10 3/mcL Normal 0.0-0.3 [facility] Comment on above: Performed By: #### P ROBF, BFPR, PHBF, BFCT, GLUBF, LDBF #### [address] [address] Basophils/100 WBC (Bld) 0.2 % Normal 0.0-2.5 [facility] Comment on above: Performed By: #### P ROBF, BFPR, PHBF, BFCT, GLUBF, LDBF #### [address] [address] Eosinophil, Absolute 0.2 10 3/mcL Normal 0.0-0.7 [facility] Comment on above: Performed By: #### P ROBF, BFPR, PHBF, BFCT, GLUBF, LDBF #### [address] [address] Eosinophils/100 WBC (Bld) 1.9 % Normal 0.0-6.0 [facility] Comment on above: Performed By: #### P ROBF, BFPR, PHBF, BFCT, GLUBF, LDBF #### [address] [address] Lymphocyte, Absolute 0.4 10 3/mcL Low 0.9-4.3 [facility] Comment on above: Performed By: #### P ROBF, BFPR, PHBF, BFCT, GLUBF, LDBF #### [address] [address] Lymphocytes/100 WBC (Bld) 4.0 % Low 20.0-40.0 [facility] Comment on above: Performed By: #### P ROBF, BFPR, PHBF, BFCT, GLUBF, LDBF #### [address] [address] Monocyte, Absolute 0.9 10 3/mcL Normal 0.1-1.4 [facility] Comment on above: Performed By: #### P ROBF, BFPR, PHBF, BFCT, GLUBF, LDBF #### [address] [address] Monocytes/100 WBC (Bld) 8.3 % Normal 2.0-13.0 [facility] Comment on above: Performed By: #### P ROBF, BFPR, PHBF, BFCT, GLUBF, LDBF #### [address] [address] Neutrophils/100 WBC (Bld) 85.6 % High 50.0-75.0 [facility] Comment on above: Performed By: #### P ROBF, BFPR, PHBF, BFCT, GLUBF, LDBF #### [address] [address] .GFRon 04-14-2025 Estimated Glomerular Filtration Rate 49 ml/min/1.73sqm Normal [facility] Comment on above: Result Comment: Stages [...] the eGFR results. Performed By: #### T MADHAVI #### [place] [address] .NEUABSon 04-14-2025 Neutrophil, Absolute 9.2 10 3/mcL High 2.3-8.1 [facility] Comment on above: Performed By: #### P ROBF, BFPR, PHBF, BFCT, GLUBF, LDBF #### [place] [address] APTTon 04-14-2025 aPTT Coag (Bld) [Time] 28.2 s Normal 25.0-35.0 [facility] Comment on above: Result Comment: For Heparin anticoagulation therapy, the recommended therapeutic range is: 54-77 seconds (APTT Correlation with Anti-Xa therapeutic range of 0.3-0.7 units/ml). PLEASE REFERENCE THE PHARMACY PROTOCOL FOR DOSING. Performed By: #### A PTT, PRO #### [place] [id number] BMPon 04-14-2025 BUN/Creatinine Ratio 32.4 ratio High 10.0-22.0 [facility] Comment on above: Performed By: #### T MADHAVI #### [address] [address] Calcium [Mass/Vol] 8.6 mg/dL Low 8.7-10.4 [facility] Comment on above: Performed By: #### T PAUL #### [place] [id number] Chloride [Moles/Vol] 98 mmol/L Normal 98-110 [facility] Comment on above: Performed By: #### T MADHAVI #### [address] [address] CO2 [Moles/Vol] 40 mmol/L Critically abnormal 22-32 [facility] Comment on above: Performed By: #### T MADHAVI #### [address] [address] Creatinine [Mass/Vol] 1.45 mg/dL High 0.60-1.40 [facility] Comment on above: Result Comment: Test ing performed on [employer] analyzer using enzymatic creatinine methodology. Performed By: #### T MADHAVI #### [address] [address] Electrolyte Balance 5.0 mEq/L Normal 4.0-15.0 [facility] Comment on above: Performed By: #### T MADHAVI #### [place] [id number] Glucose [Mass/Vol] 88 mg/dL Normal 82-115 [facility] Comment on above: Performed By: #### T MADHAVI #### [address] [address] Potassium [Moles/Vol] 4.3 mmol/L Normal 3.5-5.0 [facility] Comment on above: Performed By: #### T MADHAVI #### [address] [address] Sodium [Moles/Vol] 143 mmol/L Normal 136-145 [facility] Comment on above: Performed By: #### T MADHAVI #### [address] [address] Urea nitrogen [Mass/Vol] 47.0 mg/dL High 8.0-22.0 [facility] Comment on above: Performed By: #### T MADHAVI #### [address] [address] CBCon 04-14-2025 Erythrocyte distribution width (RBC) [Ratio] 18.4 % High 11.5-15.5 [facility] Comment on above: Performed By: #### P ROBF, BFPR, PHBF, BFCT, GLUBF, LDBF #### [place] [address] Hematocrit (Bld) [Volume fraction] 29.0 % Low 40.0-52.0 [facility] Comment on above: Performed By: #### P ROBF, BFPR, PHBF, BFCT, GLUBF, LDBF #### [place] [id number] Hgb 9.0 G/dL Low 13.0-17.5 [facility] Comment on above: Performed By: #### P ROBF, BFPR, PHBF, BFCT, GLUBF, LDBF #### [place] [address] MCH (RBC) [Entitic mass] 26.3 pg Low 27.0-33.0 [facility] Comment on above: Performed By: #### P ROBF, BFPR, PHBF, BFCT, GLUBF, LDBF #### [place] [address] MCHC 31.0 G/dL Low 32.0-36.0 [facility] Comment on above: Performed By: #### P ROBF, BFPR, PHBF, BFCT, GLUBF, LDBF #### [place] [address] MCV (RBC) [Entitic vol] 84.9 fL Normal 81.0-100.0 [facility] Comment on above: Performed By: #### P ROBF, BFPR, PHBF, BFCT, GLUBF, LDBF #### [place] [address] Platelet 165 10 3/mcL Normal 150-450 [facility] Comment on above: Performed By: #### P ROBF, BFPR, PHBF, BFCT, GLUBF, LDBF #### [place] [address] Platelet mean volume (Bld) [Entitic vol] 7.8 fL Normal 6.4-10.5 [facility] Comment on above: Performed By: #### P ROBF, BFPR, PHBF, BFCT, GLUBF, LDBF #### [facility] [address] [place] [address] RBC 3.41 10 6/mcL Low 4.50-6.00 [facility] Comment on above: Performed By: #### P ROBF, BFPR, PHBF, BFCT, GLUBF, LDBF #### [facility] [address] [place] [address] WBC 10.8 10 3/mcL Normal 4.5-10.8 [facility] Comment on above: Performed By: #### P ROBF, BFPR, PHBF, BFCT, GLUBF, LDBF #### [facility] [address] [place] [address] LABORATORYOrdered By: SYSTEM SYSTEM on 04-14-2025 PT Coag (PPP) [Time] 13.9 s Normal 9.0 - 1 4.4 seconds MARIANO ETIENNE Comment on above: Interpretive Data: E ffective 03/03/08, Protime results may be affected by some antibiotics (i.e. Ciprofloxacin, Azithromycin, Bactrim) which may potentiate the action of oral anticoagulants, with further increases in Protime/INR. PT International Ratio 1.2 ratio Invalid Interpretation Code Daljit ETIENNE Comment on above: Interpretive Data: Tyler mckeon [employer] (CHEST, 1992, 102:312S-25S) recommended therapeutic range for oral anticoagulant therapy is: LOW RISK: Prophylaxis of venous thrombosis INR: 2.0-3.0 Treatment of pulmonary embolism 2.0-3.0 Prevention of systemic embolism 2.0-3.0 HIGH RISK: Mechanical prosthetic valves 2.5-3.5 Troponin I.cardiac DL <= 0.01 ng/mL [Mass/Vol] 160 ng/L High 0 - 54 ng/L [facility] Comment on above: Interpretive Data: High Sensitive Troponin I Reference Ranges: Female: 0-34 ng/L Male: 0-54 ng/L Testing performed on NanoICE analyzer using direct chemiluminescent technology. No Panel Informationon 04-14 Legionella Urine Ag Presumptive negative for L. pneumophila serogroup 1 antigen in urine, suggesting no recent or current infection. Legionnaire's disease cannot be ruled out since other serogroups and species may also cause disease. [facility] Work Phone: Streptococcus Pneumoniae Urine Antig Presumptive negative for pneumococcal pneumonia, suggesting no current or recent pneumococcal infection. Infection due to Strep pneumoniae cannot be ruled out since the antigen present in the sample may be below the detection limit of the test. [facility] Work Phone: Comment on above: This test has not be en evaluated on patients taking antibiotics for greater than 24 hours or on patients who have recently completed an antibiotic regimen. The accuracy of this test has not been proven in young children. PROon 04-14-2025 INR Coag (PPP) [Relative time] 1.2 {INR} Normal [facility] Comment on above: Result Comment: [employer] (CHEST, 1992, 102:312S-25S) recommended therapeutic range for oral anticoagulant therapy is: LOW RISK: Prophylaxis of venous thrombosis INR: 2.0-3.0 Treatment of pulmonary embolism 2.0-3.0 Prevention of systemic embolism 2.0-3.0 HIGH RISK: Mechanical prosthetic valves 2.5-3.5 Performed By: #### A PTT, PRO #### [address] [address] PT Coag (PPP) [Time] 13.9 s Normal 9.0-14.4 [facility] Comment on above: Result Comment: Effe ctive 03/03/08, Protime results may be affected by some antibiotics (i.e. Ciprofloxacin, Azithromycin, Bactrim) which may potentiate the action of oral anticoagulants, with further increases in Protime/INR. Performed By: #### A PTT, PRO #### [address] [address] TROPHSon 04-14-2025 High Sensitivity Troponin I 160 ng/L High 0-54 [facility] Comment on above: Result Comment: High Sensitive Troponin I Reference Ranges: Female: 0-34 ng/L Male: 0-54 ng/L Testing performed on NanoICE analyzer using direct chemiluminescent technology. Performed By: #### T ROPHS #### [address] [address] XR CHEST 1 VIEWon 04-14-2025 XR CHEST [...] AM Ordering Provider: COLLEEN Francois [facility] .Auto Diffon 04-13-2025 Basophil, Absolute 0.0 10 3/mcL Normal 0.0-0.3 [facility] Comment on above: Performed By: #### P ROBF, BFPR, PHBF, BFCT, GLUBF, LDBF #### [address] [address] Basophils/100 WBC (Bld) 0.0 % Normal 0.0-2.5 [facility] Comment on above: Performed By: #### P ROBF, BFPR, PHBF, BFCT, GLUBF, LDBF #### [address] [address] Eosinophil, Absolute 0.0 10 3/mcL Normal 0.0-0.7 [facility] Comment on above: Performed By: #### P ROBF, BFPR, PHBF, BFCT, GLUBF, LDBF #### [address] [address] Eosinophils/100 WBC (Bld) 0.1 % Normal 0.0-6.0 [facility] Comment on above: Performed By: #### P ROBF, BFPR, PHBF, BFCT, GLUBF, LDBF #### [address] [address] Lymphocyte, Absolute 0.3 10 3/mcL Low 0.9-4.3 [facility] Comment on above: Performed By: #### P ROBF, BFPR, PHBF, BFCT, GLUBF, LDBF #### [address] [address] Lymphocytes/100 WBC (Bld) 3.0 % Low 20.0-40.0 [facility] Comment on above: Performed By: #### P ROBF, BFPR, PHBF, BFCT, GLUBF, LDBF #### [address] [address] Monocyte, Absolute 0.7 10 3/mcL Normal 0.1-1.4 [facility] Comment on above: Performed By: #### P ROBF, BFPR, PHBF, BFCT, GLUBF, LDBF #### [address] [address] Monocytes/100 WBC (Bld) 6.3 % Normal 2.0-13.0 [facility] Comment on above: Performed By: #### P ROBF, BFPR, PHBF, BFCT, GLUBF, LDBF #### [address] [address] Neutrophils/100 WBC (Bld) 90.6 % High 50.0-75.0 [facility] Comment on above: Performed By: #### P ROBF, BFPR, PHBF, BFCT, GLUBF, LDBF #### [address] [address] .GFRon 04-13-2025 Estimated Glomerular Filtration Rate 48 ml/min/1.73sqm Normal [facility] Comment on above: Result Comment: Stages [...] ROBF, BFPR, PHBF, BFCT, GLUBF, LDBF #### [place] [address] .NEUABSon 04-13-2025 Neutrophil, Absolute 10.5 10 3/mcL High 2.3-8.1 [facility] Comment on above: Performed By: #### P ROBF, BFPR, PHBF, BFCT, GLUBF, LDBF #### [place] [address] CBCon 04-13-2025 Erythrocyte distribution width (RBC) [Ratio] 17.7 % High 11.5-15.5 [facility] Comment on above: Performed By: #### P ROBF, BFPR, PHBF, BFCT, GLUBF, LDBF #### [place] [address] Hematocrit (Bld) [Volume fraction] 29.7 % Low 40.0-52.0 [facility] Comment on above: Performed By: #### P ROBF, BFPR, PHBF, BFCT, GLUBF, LDBF #### [place] [address] Hgb 9.4 G/dL Low 13.0-17.5 [facility] Comment on above: Performed By: #### P ROBF, BFPR, PHBF, BFCT, GLUBF, LDBF #### [place] [address] MCH (RBC) [Entitic mass] 26.6 pg Low 27.0-33.0 [facility] Comment on above: Performed By: #### P ROBF, BFPR, PHBF, BFCT, GLUBF, LDBF #### [place] [address] MCHC 31.6 G/dL Low 32.0-36.0 [facility] Comment on above: Performed By: #### P ROBF, BFPR, PHBF, BFCT, GLUBF, LDBF #### [place] [address] MCV (RBC) [Entitic vol] 84.3 fL Normal 81.0-100.0 [facility] Comment on above: Performed By: #### P ROBF, BFPR, PHBF, BFCT, GLUBF, LDBF #### [place] [address] Platelet 201 10 3/mcL Normal 150-450 [facility] Comment on above: Performed By: #### P ROBF, BFPR, PHBF, BFCT, GLUBF, LDBF #### [place] [address] Platelet mean volume (Bld) [Entitic vol] 8.1 fL Normal 6.4-10.5 [facility] Comment on above: Performed By: #### P ROBF, BFPR, PHBF, BFCT, GLUBF, LDBF #### [place] [address] RBC 3.52 10 6/mcL Low 4.50-6.00 [facility] Comment on above: Performed By: #### P ROBF, BFPR, PHBF, BFCT, GLUBF, LDBF #### [place] [address] WBC 11.6 10 3/mcL High 4.5-10.8 [facility] Comment on above: Performed By: #### P ROBF, BFPR, PHBF, BFCT, GLUBF, LDBF #### [place] [address] CMPon 04-13-2025 Albumin Level 2.9 G/dL Low 3.2-4.8 [facility] Comment on above: Performed By: #### P ROBF, BFPR, PHBF, BFCT, GLUBF, LDBF #### [place] [address] Albumin/Globulin [Mass ratio] 0.9 {ratio} Normal 0.9-1.6 [facility] Comment on above: Performed By: #### P ROBF, BFPR, PHBF, BFCT, GLUBF, LDBF #### [place] [address] ALP [Catalytic activity/Vol] 58 U/L Normal 38-126 [facility] Comment on above: Performed By: #### P ROBF, BFPR, PHBF, BFCT, GLUBF, LDBF #### [place] [address] ALT [Catalytic activity/Vol] 32 U/L Normal 12-55 [facility] Comment on above: Performed By: #### P ROBF, BFPR, PHBF, BFCT, GLUBF, LDBF #### [place] [address] AST [Catalytic activity/Vol] 26 U/L Normal 8-34 [facility] Comment on above: Performed By: #### P ROBF, BFPR, PHBF, BFCT, GLUBF, LDBF #### [place] [address] Bili Total 0.50 mg/dL Normal 0.20-1.20 [facility] Comment on above: Result Comment: Use of this assay is not recommended for patients undergoing treatment with eltrombopag due to the potential for falsely elevated results. Performed By: #### P ROBF, BFPR, PHBF, BFCT, GLUBF, LDBF #### [place] [address] BUN/Creatinine Ratio 33.3 ratio High 10.0-22.0 [facility] Comment on above: Performed By: #### P ROBF, BFPR, PHBF, BFCT, GLUBF, LDBF #### [place] [address] Calcium [Mass/Vol] 8.8 mg/dL Normal 8.7-10.4 [facility] Comment on above: Performed By: #### P ROBF, BFPR, PHBF, BFCT, GLUBF, LDBF #### [place] [address] Chloride [Moles/Vol] 100 mmol/L Normal 98-110 [facility] Comment on above: Performed By: #### P ROBF, BFPR, PHBF, BFCT, GLUBF, LDBF #### [address] [address] CO2 [Moles/Vol] 39 mmol/L High 22-32 [facility] Comment on above: Performed By: #### P ROBF, BFPR, PHBF, BFCT, GLUBF, LDBF #### [address] [address] Creatinine [Mass/Vol] 1.47 mg/dL High 0.60-1.40 [facility] Comment on above: Result Comment: Test ing performed on SellStage analyzer using enzymatic creatinine methodology. Performed By: #### P ROBF, BFPR, PHBF, BFCT, GLUBF, LDBF #### [address] [address] Electrolyte Balance 4.0 mEq/L Normal 4.0-15.0 [facility] Comment on above: Performed By: #### P ROBF, BFPR, PHBF, BFCT, GLUBF, LDBF #### [address] [address] Globulin 3.4 G/dL Normal 2.5-4.2 [facility] Comment on above: Performed By: #### P ROBF, BFPR, PHBF, BFCT, GLUBF, LDBF #### [address] [address] Glucose [Mass/Vol] 192 mg/dL High 82-115 [facility] Comment on above: Performed By: #### P ROBF, BFPR, PHBF, BFCT, GLUBF, LDBF #### [address] [address] Potassium [Moles/Vol] 4.5 mmol/L Normal 3.5-5.0 [facility] Comment on above: Performed By: #### P ROBF, BFPR, PHBF, BFCT, GLUBF, LDBF #### [facility] [address] [place] [address] Sodium [Moles/Vol] 143 mmol/L Normal 136-145 [facility] Comment on above: Performed By: #### P ROBF, BFPR, PHBF, BFCT, GLUBF, LDBF #### [address] [address] Total Protein 6.3 G/dL Normal 5.7-8.2 [facility] Comment on above: Performed By: #### P ROBF, BFPR, PHBF, BFCT, GLUBF, LDBF #### [address] [address] Urea nitrogen [Mass/Vol] 49.0 mg/dL High 8.0-22.0 [facility] Comment on above: Performed By: #### P ROBF, BFPR, PHBF, BFCT, GLUBF, LDBF #### [address] [address] LABORATORYOrdered By: SYSTEM SYSTEM on 04-13-2025 Troponin I.cardiac DL <= 0.01 ng/mL [Mass/Vol] 174 ng/L High 0 - 54 ng/L ADM Comment on above: Interpretive Data: High Sensitive Troponin I Reference Ranges: Female: 0-34 ng/L Male: 0-54 ng/L Testing performed on NanoICE analyzer using direct chemiluminescent technology. Lactate [Moles/Vol] 1.2 mmol/L Normal 0.5 - 2. 2 mmol/L ADM Natriuretic peptide.B prohormone N-Terminal IA [Mass/Vol] 6315 [...] Ratio 1.3 ratio Invalid Interpretation Code [employer] SS Comment on above: Interpretive Data: T mike [employer] (CHEST, 1992, 102:312S-25S) [...] ng/L Male: 0-54 ng/L Testing performed on NanoICE analyzer using direct chemiluminescent technology. LABORATORYOrdered By: [...] Lvl 1.2 mmol/L Normal 0.5-2.2 [facility] Comment on above: Performed By: #### P ROBF, BFPR, PHBF, BFCT, GLUBF, LDBF #### [address] [address] MGon 04-13-2025 Magnesium [Mass/Vol] 2.2 mg/dL Normal 1.6-2.4 [facility] Comment on above: Performed By: #### P ROBF, BFPR, PHBF, BFCT, GLUBF, LDBF #### [address] [address] MYCOon 04-13-2025 Mycoplasma IgG Positive Normal [facility] Comment on above: Result Comment: INTE RPRETATION OF MYCOPLASMA IgG BY EIA: Negative: No detectable M. pneumoniae IgG antibody. Positive: Mycoplasma pneumoniae IgG antibody Detected. Equivocal: Equivocal for IgG antibodies to Mycoplasma pneumoniae. Suggest repeat testing in 10-14 days. Performed By: #### P ROBF, BFPR, PHBF, BFCT, GLUBF, LDBF #### [place] [address] Mycoplasma IgM Negative Normal [facility] Comment on above: Result Comment: INTE [...] ROBF, BFPR, PHBF, BFCT, GLUBF, LDBF #### [place] [id number] No Panel Informationon 04-13 Microscopic examination of blood, culture Culture has been received in lab and is no growth to date. Routine cultures are held for 5 days. [facility] Work Phone: PBNPon 04-13-2025 Natriuretic peptide B (Bld) [Mass/Vol] 6315 pg/mL High 0-1800 [facility] Comment on above: Performed By: #### P ROBF, BFPR, PHBF, BFCT, GLUBF, LDBF #### [address] [address] PROon 04-13-2025 INR Coag (PPP) [Relative time] 1.3 {INR} Normal [facility] Comment on above: Result Comment: [employer] (CHEST, 1992, 102:312S-25S) recommended therapeutic range for oral anticoagulant therapy is: LOW RISK: Prophylaxis of venous thrombosis INR: 2.0-3.0 Treatment of pulmonary embolism 2.0-3.0 Prevention of systemic embolism 2.0-3.0 HIGH RISK: Mechanical prosthetic valves 2.5-3.5 Performed By: #### P ROBF, BFPR, PHBF, BFCT, GLUBF, LDBF #### [place] [address] PT Coag (PPP) [Time] 14.5 s High 9.0-14.4 [facility] Comment on above: Result Comment: Effe ctive 03/03/08, Protime results may be affected by some antibiotics (i.e. Ciprofloxacin, Azithromycin, Bactrim) which may potentiate the action of oral anticoagulants, with further increases in Protime/INR. Performed By: #### P ROBF, BFPR, PHBF, BFCT, GLUBF, LDBF #### [place] [id number] [facility] High Sensitivity Troponin I 174 ng/L High [address] [place] [address] MAIN Comment on above: Result Comment: High Sensitive Troponin I Reference Ranges: Female: 0-34 ng/L Male: 0-54 ng/L Testing performed on AtellDataGravity IM analyzer using direct chemiluminescent technology. Performed By: #### P ROBF, BFPR, PHBF, BFCT, GLUBF, LDBF #### [place] [address] High Sensitivity Troponin I 141 ng/L High [address] [place] [address] MAIN Comment on above: Result Comment: High Sensitive Troponin I Reference Ranges: Female: 0-34 ng/L Male: 0-54 ng/L Testing performed on Atell[employer] IM analyzer using direct chemiluminescent technology. Performed By: #### P ROBF, BFPR, PHBF, BFCT, GLUBF, LDBF #### [place] [address] XR CHEST 1 VIEWon 04-13-2025 XR CHEST [...] Ordering Provider: COLLEEN DOE Normal [facility] 12 Lead EKGon 04-12-2025 12 Lead EKG Normal [facility] Absolute lymphocyte countOrd ered By: Daniel Brownlee on 04-12-2025 Lymphocytes Auto (Unsp spec) [#/Vol] 0.34 10*3/uL Low 0.83-4.51 [facility] Anion gap in Serum or Plasma Ordered By: Daniel Brownlee on 04-12-2025 Anion gap [Moles/Vol] 9 mmol/L 5-15 [facility] Automated lymphocyte count a s percentage of total leukocytesOrdered By: Daniel Brownlee on 04-12-2025 Lymphocytes/100 WBC Auto (Unsp spec) 2.5 % Low 19-41 [facility] BUN/creatinine ratioOrdered By: Daniel Brownlee on 04-12-2025 Urea nitrogen/Creatinine [Mass ratio] 41.9 mg/mg High 10-20 [facility] Basic Metabolic Profile (BMP )on 04-12-2025 BUN/CRE 41.9 RATIO High 06-08 [facility] Comment on above: Performed By: #### L 503.7505, L500.2500 ####[facility] [address] [place], [place], [id number] Calcium [Mass/Vol] 8.7 mg/dL Normal 7.6-11.0 [facility] Comment on above: Performed By: #### L 503.7505, L500.2500 ####[facility] [address] [place], [address] Chloride [Moles/Vol] 93 mmol/L Low 98-108 [facility] Comment on above: Performed By: #### L 503.7505, L500.2500 ####[facility] [address] [place], [address] CO2 [Moles/Vol] 36.5 mmol/L High 21.0-32.0 [facility] Comment on above: Performed By: #### L 503.7505, L500.2500 ####[facility] [address] [place], [address] Creatinine [Mass/Vol] 1.43 mg/dL High 0.70-1.20 [facility] Comment on above: Performed By: #### L 503.7505, L500.2500 ####[facility] [address] [place], [address] ECRCL 37.18 ml/min Low 50-250 [facility] Comment on above: Performed By: #### L 503.7505, L500.2500 ####[facility] [address] [place], [address] GAP 9 Normal 5-15 [facility] Comment on above: Performed By: #### L 503.7505, L500.2500 ####[facility] [address] [place], [address] GFR/1.73 sq M.predicted among non-blacks MDRD (S/P/Bld) [Vol rate/Area] 50 mL/min/{1.73_m2} Low >60 [facility] Comment on above: Result Comment: mL/m in/1.73m2 CKD-EPI Creatinine Equation (2020) Performed By: #### L 503.7505, L500.2500 ####[facility] [address] [place], [address] Glucose [Mass/Vol] 189 mg/dL High 70-99 [facility] Comment on above: Performed By: #### L 503.7505, L500.2500 ####[facility] [address] [place], [address] Potassium [Moles/Vol] 4.3 mmol/L Normal 3.3-5.1 [facility] Comment on above: Performed By: #### L 503.7505, L500.2500 ####[facility] [address] [place], [address] Sodium [Moles/Vol] 138 mmol/L Normal 133-145 [facility] Comment on above: Performed By: #### L 503.7505, L500.2500 ####[facility] [address] [place], [address] Urea nitrogen [Mass/Vol] 60 mg/dL High 4-19 [facility] Comment on above: Performed By: #### L 503.7505, L500.2500 ####[facility] [address] [place], [address] Basophil percentageOrdered B y: Daniel Brownlee on 04-12-2025 Basophils/100 WBC (Bld) 0.1 % 0-1 [facility] Bedside Glucoseon 04-12-2025 FINGERSTICK GLU 143 mg/dL High 74-106 [facility] Comment on above: Result Comment: KODY GEMENT OF PATIENT CARE PER NURSING PROTOCOL Performed By: #### L 501.080 ####[facility] [address] [place], [address] FINGERSTICK GLU 222 mg/dL High 74-106 [facility] Comment on above: Result Comment: KODY GEMENT OF PATIENT CARE PER NURSING PROTOCOL Performed By: #### L 501.080 ####[facility] [address] [place], [address] FINGERSTICK GLU 222 mg/dL High 74-106 [facility] Comment on above: Result Comment: KODY STRONG OF PATIENT CARE PER NURSING PROTOCOL Performed By: #### L 501.080 ####[facility] [address] [place], [address] Body Fluid Culton 04-12-2025 BFC Culture exhibits no growth. Normal [facility] Comment on above: Performed By: #### M 100.2900, M100.4001, L350.1000, L200.0200, M100.2000 ####[facility] [address] [place], [address] CBC W/Diff, Automatedon 03-21 Absolute Lymph 0.34 X10 3/uL Low 0.83-4.51 [facility] Comment on above: Performed By: #### L 100.0100, L501.4021 ####[facility] [address] [place], [address] Absolute Neut 12.7 X10 3/uL High 2.0-7.7 [facility] Comment on above: Performed By: #### L 100.0100, L501.4021 ####[facility] [address] [place], [address] Basophils/100 WBC (Bld) 0.1 % Normal 0-1 [facility] Comment on above: Performed By: #### L 100.0100, L501.4021 ####[facility] [address] [place], [address] Eosinophils/100 WBC (Bld) 0.0 % Normal 0-5 [facility] Comment on above: Performed By: #### L 100.0100, L501.4021 ####[facility] [address] [place], [address] Erythrocyte distribution width (RBC) [Ratio] 16.6 % High 11.6-14.6 [facility] Comment on above: Performed By: #### L 100.0100, L501.4021 ####[facility] [address] [place], [address] Hematocrit (Bld) [Volume fraction] 29.6 % Low 40-54 [facility] Comment on above: Performed By: #### L 100.0100, L501.4021 ####[facility] [id number] [place], [address] Hemoglobin (Bld) [Mass/Vol] 9.1 g/dL Low 13.0-16.5 [facility] Comment on above: Performed By: #### L 100.0100, L501.4021 ####[facility] [id number] [place], [address] IG% 0.700 Normal 0.0-0.9 [facility] Comment on above: Result Comment: IG% - Immature Granulocytes (promyelocytes, myelocytes andmetamyelocytes) > 1% indicates that a LEFT SHIFT is Present. Performed By: #### L 100.0100, L501.4021 ####[facility] [address] [place], [address] Lymphocytes/100 WBC (Bld) 2.5 % Low 19-41 [facility] Comment on above: Performed By: #### L 100.0100, L501.4021 ####[facility] [address] [place], [address] MCH (RBC) [Entitic mass] 27.2 pg Normal 27.0-32.0 [facility] Comment on above: Performed By: #### L 100.0100, L501.4021 ####[facility] [address] [place], [address] MCHC (RBC) [Mass/Vol] 30.7 g/dL Low 32-36 [facility] Comment on above: Performed By: #### L 100.0100, L501.4021 ####[facility] [address] [place], [address] MCV (RBC) [Entitic vol] 88.4 fL Normal 80-94 [facility] Comment on above: Performed By: #### L 100.0100, L501.4021 ####[facility] [address] [place], [address] Monocytes/100 WBC (Bld) 4.2 % Normal 0-10 [facility] Comment on above: Performed By: #### L 100.0100, L501.4021 ####[facility] [address] [place], [address] Neutrophils/100 WBC (Bld) 92.5 % High 47-70 [facility] Comment on above: Performed By: #### L 100.0100, L501.4021 ####[facility] [address] [place], [address] Nucleated RBC (Bld) [#/Vol] 0 10*3/uL Normal 0-5 [facility] Comment on above: Performed By: #### L 100.0100, L501.4021 ####[facility] [address] [place], [address] Platelet mean volume (Bld) [Entitic vol] 9.9 fL Normal 6.2-12.0 [facility] Comment on above: Performed By: #### L 100.0100, L501.4021 ####[facility] [address] [place], [address] Platelets (Bld) [#/Vol] 193 10*3/uL Normal 150-450 [facility] Comment on above: Performed By: #### L 100.0100, L501.4021 ####[facility] [address] [place], [address] RBC (Bld) [#/Vol] 3.35 10*6/uL Low 4.6-6.2 [facility] Comment on above: Performed By: #### L 100.0100, L501.4021 ####[facility] [address] [place], [address] RDW SD 53.6 fl High 35.1-43.9 [facility] Comment on above: Performed By: #### L 100.0100, L501.4021 ####[facility] [address] [place], [address] WBC (Bld) [#/Vol] 13.7 10*3/uL High 4.4-11.0 [facility] Comment on above: Performed By: #### L 100.0100, L501.4021 ####[facility] [address] [place], [address] Carbon dioxide, total [Moles /volume] in Central venous bloodOrdered By: Daniel Brownlee on 04-12-2025 CO2 [Moles/Vol] 36.5 mmol/L High 21.0-32.0 [facility] Chest PA and Lateralon 04-12 Chest PA and Lateral Normal [facility] Chest without Contraston Chest without Contrast Normal [facility] Chloride assayOrdered By: Kimo Brownlee on 04-12-2025 Chloride [Moles/Vol] 93 mmol/L Low 98-108 [facility] Culture, Anaerobic Any Sourc talat 04-12-2025 CUAN No anaerobic bacteri a isolated. Normal [facility] Comment on above: Performed By: #### M 100.2900, M100.4001, L350.1000, L200.0200, M100.2000 ####[facility] [address] [place], [address] Emergency Department Summary on 04-12-2025 Emergency Department Summary Normal [facility] Eosinophil percentageOrdered By: Daniel Brownlee on 04-12-2025 Eosinophils/100 WBC (Bld) 0.0 % 0-5 [facility] Erythrocyte distribution wid th ratioOrdered By: Daniel Brownlee on 04-12-2025 Erythrocyte distribution width (RBC) [Ratio] 16.6 % High 11.6-14.6 [facility] Erythrocyte distribution wid th standard deviationOrdered By: Daniel Brownlee on 04-12-2025 Erythrocyte distribution width (RBC) [Ratio] 53.6 fl High 35.1-43.9 [facility] Glomerular filtration rate ( GFR) estimation/1.73 sq m using serum, plasma, or whole bOrdered By: Daniel Brownlee on 04-12-2025 GFR/1.73 sq M.predicted among non-blacks MDRD (S/P/Bld) [Vol rate/Area] 50 mL/min/{1.73_m2} Low >60 [facility] deOrdered By: Valdez Olivo on 04-12-2025 Glucose [Mass/Vol] 143 mg/dL High 74-106 [facility] Hematocrit Auto (Bld) [Volum e fraction]Ordered By: Daniel Brownlee on 04-12-2025 Hematocrit (Bld) [Volume fraction] 29.6 % Low 40-54 [facility] Hemoglobin measurementOrdere d By: Daniel Brownlee on 04-12-2025 Hemoglobin (Bld) [Mass/Vol] 9.1 g/dL Low 13.0-16.5 [facility] Immature granulocytes/100 WB C Auto (Bld)Ordered By: Daniel Brownlee on 04-12-2025 Immature granulocytes/100 WBC (Bld) 0.700 % 0.0-0.9 [facility] L501.4021on 04-12-2025 Trop T High Sen 103 ng/L Invalid Interpretation Code <=22 [facility] Comment on above: Result Comment: Crit ical Result(s) Called ACOLE2 at: 2036 by:RIVERA??Results read back by same. Performed By: #### L 100.0100, L501.4021 ####[facility] [address] [place], [place], [id number] MCV (mean corpuscular volume ) determinationOrdered By: Daniel Brownlee on 04-12-2025 MCV (RBC) [Entitic vol] 88.4 fL 80-94 [facility] Mean corpuscular hemoglobin (MCH) determinationOrdered By: Daniel Brownlee on 04-12-2025 MCH (RBC) [Entitic mass] 27.2 pg 27.0-32.0 [facility] Monocyte percentageOrdered B y: Daniel Brownlee on 04-12-2025 Monocytes/100 WBC (Bld) 4.2 % 0-10 [facility] Natriuretic peptide.B prohor girish N-Terminal [Mass/volume] in Serum or PlasmaOrdered By: Daniel Brownlee on 04-12-2025 Natriuretic peptide.B prohormone N-Terminal [Mass/Vol] 7022 pg/mL High <1800 [facility] Neutrophil percentageOrdered By: Daniel Brownlee on 04-12-2025 Neutrophils/100 WBC (Bld) 92.5 % High 47-70 [facility] Platelet countOrdered By: Kimo Brownlee on 04-12-2025 Platelets (Bld) [#/Vol] 193 10*3/uL 150-450 [facility] Potassium measurement (mass/ volume)Ordered By: Daniel Brownlee on 04-12-2025 Potassium (Unsp spec) [Mass/Vol] 4.3 mmol/L 3.3-5.1 [facility] Pro- Brain NATRIURETIC PEPTI Adrienne 04-12-2025 Natriuretic peptide B (Bld) [Mass/Vol] 7022 pg/mL High <=1800 [facility] Comment on above: Result Comment: Hear t Failure Unlikely: < 300 pg/mLHeart Failure Likely< 50 Years: > 450 pg/mL50-75 Years: > 900 pg/mL>75 Years: > 1800 pg/mL Performed By: #### L 503.7505, L500.2500 ####[facility] [address] [place], [place], [id number] RBC Auto (Bld) [#/Vol]Ordere d By: Daniel Brownlee on 04-12-2025 RBC (Bld) [#/Vol] 3.35 10*6/uL Low 4.6-6.2 [facility] Serum creatinine measurement (mass/volume)Ordered By: Daniel Brownlee on 04-12-2025 Creatinine [Mass/Vol] 1.43 mg/dL High 0.70-1.20 [facility] Serum glucose measurement (m ass/volume)Ordered By: Daniel Brownlee on 04-12-2025 Glucose [Mass/Vol] 189 mg/dL High 70-99 [facility] Serum or plasma calcium [place] urement (mass/volume)Ordered By: Daniel Brownlee on 04-12-2025 Calcium [Mass/Vol] 8.7 mg/dL 7.6-11.0 [facility] Serum or plasma urea nitroge n measurement (mass/volume)Ordered By: Daniel Brownlee on 04-12-2025 Urea nitrogen [Mass/Vol] 60 mg/dL High 4-19 [facility] Sodium levelOrdered By: Mickie Brownlee on 04-12-2025 Sodium [Moles/Vol] 138 mmol/L 133-145 [facility] Troponin T HS 2 HRon 025 Trop T High Sen 98 ng/L Invalid Interpretation Code <=22 [facility] Comment on above: Result Comment: Crit ical Result(s) Called ALAERS at: 2234 by:RIVERA??Results read back by same. Performed By: #### L 499.0042 ####[facility] [address] [place], [place], [id number] Troponin T HS 4 HRon 025 Trop T High Sen Normal <=22 [facility] Comment on above: Result Comment: RAMÓN ENT DISCHARGED Performed By: #### L 499.0043 ####[facility] [address] [place], [place], [id number] Troponin T.cardiac [Mass/vol ume] in Serum or Plasma by High sensitivity methodOrdered By: Daniel Brownlee on 04-12-2025 Troponin T.cardiac High sensitivity method [Mass/Vol] 98 ng/L High <22 [facility] Troponin T.cardiac High sensitivity method [Mass/Vol] 103 ng/L High <22 [facility] White blood cell (WBC) count Ordered By: Daniel Brownlee on 04-12-2025 WBC (Bld) [#/Vol] 13.7 10*3/uL High 4.4-11.0 [facility] Absolute lymphocyte countOrd ered By: Valdez Geovani on 04-11-2025 Lymphocytes Auto (Unsp spec) [#/Vol] 0.34 10*3/uL Low 0.83-4.51 [facility] Anion gap in Serum or Plasma Ordered By: Valdez Olivo on 04-11-2025 Anion gap [Moles/Vol] 10 mmol/L 5-15 [facility] Automated lymphocyte count a s percentage of total leukocytesOrdered By: Valdez Olivo on 04-11-2025 Lymphocytes/100 WBC Auto (Unsp spec) 3.3 % Low 19-41 [facility] BUN/creatinine ratioOrdered By: Valdez Olivo on 04-11-2025 Urea nitrogen/Creatinine [Mass ratio] 42.1 mg/mg High 10-20 [facility] Basic Metabolic Profile (BMP )on 04-11-2025 BUN/CRE 42.1 RATIO High 10- [facility] Comment on above: Performed By: #### L 500.2500, L100.0100 ####[facility] [address] [place], [address] Calcium [Mass/Vol] 8.6 mg/dL Normal 7.6-11.0 [facility] Comment on above: Performed By: #### L 500.2500, L100.0100 ####[facility] [address] [place], [address] Chloride [Moles/Vol] 94 mmol/L Low 98-108 [facility] Comment on above: Performed By: #### L 500.2500, L100.0100 ####[facility] [address] [place], [address] CO2 [Moles/Vol] 33.4 mmol/L High 21.0-32.0 [facility] Comment on above: Performed By: #### L 500.2500, L100.0100 ####[facility] [address] [place], [address] Creatinine [Mass/Vol] 1.62 mg/dL High 0.70-1.20 [facility] Comment on above: Performed By: #### L 500.2500, L100.0100 ####[facility] [address] [place], [address] ECRCL 32.82 ml/min Low 50-250 [facility] Comment on above: Performed By: #### L 500.2500, L100.0100 ####[facility] [address] [place], [address] GAP 10 Normal 5-15 [facility] Comment on above: Performed By: #### L 500.2500, L100.0100 ####[facility] [address] [place], [address] GFR/1.73 sq M.predicted among non-blacks MDRD (S/P/Bld) [Vol rate/Area] 43 mL/min/{1.73_m2} Low >60 [facility] Comment on above: Result Comment: mL/m in/1.73m2 CKD-EPI Creatinine Equation (2020) Performed By: #### L 500.2500, L100.0100 ####[facility] [address] [place], [address] Glucose [Mass/Vol] 176 mg/dL High 70-99 [facility] Comment on above: Performed By: #### L 500.2500, L100.0100 ####[facility] [address] [place], [address] Potassium [Moles/Vol] 4.1 mmol/L Normal 3.3-5.1 [facility] Comment on above: Performed By: #### L 500.2500, L100.0100 ####[facility] [address] [place], [address] Sodium [Moles/Vol] 138 mmol/L Normal 133-145 [facility] Comment on above: Performed By: #### L 500.2500, L100.0100 ####[facility] [address] [place], [address] Urea nitrogen [Mass/Vol] 68 mg/dL High 4-19 [facility] Comment on above: Performed By: #### L 500.2500, L100.0100 ####[facility] [address] [place], [address] BUN Normal 4-19 [facility] Comment on above: Result Comment: Canc elled via OM: Order cancelled - Patient discharged Performed By: #### L 500.2500, L100.0100 ####[facility] [address] [place], [address] BUN/CRE Normal 10-20 [facility] Comment on above: Result Comment: Canc elled via OM: Order cancelled - Patient discharged Performed By: #### L 500.2500, L100.0100 ####[facility] [address] [place], [address] Calcium Normal 7.6-11.0 [facility] Comment on above: Result Comment: Canc elled via OM: Order cancelled - Patient discharged Performed By: #### L 500.2500, L100.0100 ####[facility] [address] [place], [address] CL Normal 98-108 [facility] Comment on above: Result Comment: Canc elled via OM: Order cancelled - Patient discharged Performed By: #### L 500.2500, L100.0100 ####[facility] [address] [place], [address] CO2 Normal 21.0-32.0 [facility] Comment on above: Result Comment: Canc elled via OM: Order cancelled - Patient discharged Performed By: #### L 500.2500, L100.0100 ####[facility] [address] [place], [address] CREAT,SERUM Normal 0.70-1.20 [facility] Comment on above: Result Comment: Canc elled via OM: Order cancelled - Patient discharged Performed By: #### L 500.2500, L100.0100 ####[facility] [address] [place], [address] eGFR Normal >60 [facility] Comment on above: Result Comment: Canc elled via OM: Order cancelled - Patient discharged Performed By: #### L 500.2500, L100.0100 ####[facility] [address] [place], [address] GAP Normal 5-15 [facility] Comment on above: Result Comment: Canc elled via OM: Order cancelled - Patient discharged Performed By: #### L 500.2500, L100.0100 ####[facility] [address] [place], [address] GLU Normal 70-99 [facility] Comment on above: Result Comment: Canc elled via OM: Order cancelled - Patient discharged Performed By: #### L 500.2500, L100.0100 ####[facility] [address] [place], [address] Potassium Normal 3.3-5.1 [facility] Comment on above: Result Comment: Canc elled via OM: Order cancelled - Patient discharged Performed By: #### L 500.2500, L100.0100 ####[facility] [address] [place], [address] Basic Metabolic Profile (BMP) Normal 133-145 [facility] Comment on above: Result Comment: Canc elled via OM: Order cancelled - Patient discharged Performed By: #### L 500.2500, L100.0100 ####[facility] [address] [place], [address] Basophil percentageOrdered B y: Valdez Olivo on 04-11-2025 Basophils/100 WBC (Bld) 0.1 % 0-1 [facility] Bedside Glucoseon 04-11-2025 FINGERSTICK GLU 323 mg/dL High 74-106 [facility] Comment on above: Result Comment: KODY GEMENT OF PATIENT CARE PER NURSING PROTOCOL Performed By: #### L 501.080 ####[facility] [address] [place], [address] FINGERSTICK GLU 166 mg/dL High -106 [facility] Comment on above: Result Comment: KODY GEMENT OF PATIENT CARE PER NURSING PROTOCOL Performed By: #### L 501.080 ####[facility] [address] [place], [address] FINGERSTICK GLU 273 mg/dL High 74-106 [facility] Comment on above: Result Comment: KODY GEMENT OF PATIENT CARE PER NURSING PROTOCOL Performed By: #### L 501.080 ####[facility] [address] [place], [address] CBC W/Diff, Automatedon 03-21 Absolute Lymph 0.34 X10 3/uL Low 0.83-4.51 [facility] Comment on above: Performed By: #### L 500.2500, L100.0100 ####[facility] [address] [place], [address] Absolute Neut 9.0 X10 3/uL High 2.0-7.7 [facility] Comment on above: Performed By: #### L 500.2500, L100.0100 ####[facility] [address] [place], [address] Basophils/100 WBC (Bld) 0.1 % Normal 0-1 [facility] Comment on above: Performed By: #### L 500.2500, L100.0100 ####[facility] [address] [place], [address] Eosinophils/100 WBC (Bld) 0.0 % Normal 0-5 [facility] Comment on above: Performed By: #### L 500.2500, L100.0100 ####[facility] [address] [place], [address] Erythrocyte distribution width (RBC) [Ratio] 16.6 % High 11.6-14.6 [facility] Comment on above: Performed By: #### L 500.2500, L100.0100 ####[facility] [address] [place], [address] Hematocrit (Bld) [Volume fraction] 28.4 % Low 40-54 [facility] Comment on above: Performed By: #### L 500.2500, L100.0100 ####[facility] [address] [place], [address] Hemoglobin (Bld) [Mass/Vol] 8.7 g/dL Low 13.0-16.5 [facility] Comment on above: Performed By: #### L 500.2500, L100.0100 ####[facility] [address] [place], [address] IG% 0.600 Normal 0.0-0.9 [facility] Comment on above: Result Comment: IG% - Immature Granulocytes (promyelocytes, myelocytes andmetamyelocytes) > 1% indicates that a LEFT SHIFT is Present. Performed By: #### L 500.2500, L100.0100 ####[facility] [address] [place], [address] Lymphocytes/100 WBC (Bld) 3.3 % Low 19-41 [facility] Comment on above: Performed By: #### L 500.2500, L100.0100 ####[facility] [address] [place], [address] MCH (RBC) [Entitic mass] 26.7 pg Low 27.0-32.0 [facility] Comment on above: Performed By: #### L 500.2500, L100.0100 ####[facility] [address] [place], [address] MCHC (RBC) [Mass/Vol] 30.6 g/dL Low 32-36 [facility] Comment on above: Performed By: #### L 500.2500, L100.0100 ####[facility] [address] [place], [address] MCV (RBC) [Entitic vol] 87.1 fL Normal 80-94 [facility] Comment on above: Performed By: #### L 500.2500, L100.0100 ####[facility] [address] [place], [address] Monocytes/100 WBC (Bld) 8.7 % Normal 0-10 [facility] Comment on above: Performed By: #### L 500.2500, L100.0100 ####[facility] [address] [place], [address] Neutrophils/100 WBC (Bld) 87.3 % High 47-70 [facility] Comment on above: Performed By: #### L 500.2500, L100.0100 ####[facility] [address] [place], [address] Nucleated RBC (Bld) [#/Vol] 0 10*3/uL Normal 0-5 [facility] Comment on above: Performed By: #### L 500.2500, L100.0100 ####[facility] [address] [place], [address] Platelet mean volume (Bld) [Entitic vol] 10.2 fL Normal 6.2-12.0 [facility] Comment on above: Performed By: #### L 500.2500, L100.0100 ####[facility] [address] [place], [address] Platelets (Bld) [#/Vol] 186 10*3/uL Normal 150-450 [facility] Comment on above: Performed By: #### L 500.2500, L100.0100 ####[facility] [address] [place], [address] RBC (Bld) [#/Vol] 3.26 10*6/uL Low 4.6-6.2 [facility] Comment on above: Performed By: #### L 500.2500, L100.0100 ####[facility] [address] [place], [address] RDW SD 52.9 fl High 35.1-43.9 [facility] Comment on above: Performed By: #### L 500.2500, L100.0100 ####[facility] [address] [place], [address] WBC (Bld) [#/Vol] 10.3 10*3/uL Normal 4.4-11.0 [facility] Comment on above: Performed By: #### L 500.2500, L100.0100 ####[facility] [address] [place], [address] Absolute Neut Normal 2.0-7.7 [facility] Comment on above: Result Comment: Canc elled via OM: Order cancelled - Patient discharged Performed By: #### L 500.2500, L100.0100 ####[facility] [address] [place], [address] HCT Normal 40-54 [facility] Comment on above: Result Comment: Canc elled via OM: Order cancelled - Patient discharged Performed By: #### L 500.2500, L100.0100 ####[facility] [address] [place], [address] HGB Normal 13.0-16.5 [facility] Comment on above: Result Comment: Canc elled via OM: Order cancelled - Patient discharged Performed By: #### L 500.2500, L100.0100 ####[facility] [address] [place], [address] MCH Normal 27.0-32.0 [facility] Comment on above: Result Comment: Canc elled via OM: Order cancelled - Patient discharged Performed By: #### L 500.2500, L100.0100 ####[facility] [address] [place], [address] MCHC Normal 32-36 [facility] Comment on above: Result Comment: Canc elled via OM: Order cancelled - Patient discharged Performed By: #### L 500.2500, L100.0100 ####[facility] [address] [place], [address] MCV Normal 80-94 [facility] Comment on above: Result Comment: Canc elled via OM: Order cancelled - Patient discharged Performed By: #### L 500.2500, L100.0100 ####[facility] [address] [place], [address] NEUT% Normal 47-70 [facility] Comment on above: Result Comment: Canc elled via OM: Order cancelled - Patient discharged Performed By: #### L 500.2500, L100.0100 ####[facility] [address] [place], [address] PLT Normal 150-450 [facility] Comment on above: Result Comment: Canc elled via OM: Order cancelled - Patient discharged Performed By: #### L 500.2500, L100.0100 ####[facility] [address] [place], [address] RBC Normal 4.6-6.2 [facility] Comment on above: Result Comment: Canc elled via OM: Order cancelled - Patient discharged Performed By: #### L 500.2500, L100.0100 ####[facility] [address] [place], [address] RDW CV Normal 11.6-14.6 [facility] Comment on above: Result Comment: Canc elled via OM: Order cancelled - Patient discharged Performed By: #### L 500.2500, L100.0100 ####[facility] [address] [place], [address] RDW SD Normal 35.1-43.9 [facility] Comment on above: Result Comment: Canc elled via OM: Order cancelled - Patient discharged Performed By: #### L 500.2500, L100.0100 ####[facility] [address] [place], [address] WBC Normal 4.4-11.0 [facility] Comment on above: Result Comment: Canc elled via OM: Order cancelled - Patient discharged Performed By: #### L 500.2500, L100.0100 ####[facility] [address] [place], [address] COVID 19 AG RAPID (KHURRAM Becerril)on 04-11-2025 SARS-CoV-2 (COVID-19) RNA BRYAN+probe Ql (Unsp spec) Normal [facility] Comment on above: Performed By: #### M 100.505 ####[facility] [address] [place], [address] COVID-19 virus antigen assay Ordered By: Valdez Olivo on 04-11-2025 SARS-CoV-2 (COVID-19) Ag IA.rapid Ql (Resp) [facility] Carbon dioxide, total [Moles /volume] in Central venous bloodOrdered By: Valdez Olivo on 04-11-2025 CO2 [Moles/Vol] 33.4 mmol/L High 21.0-32.0 [facility] Chloride assayOrdered By: Aiden Olivo on 04-11-2025 Chloride [Moles/Vol] 94 mmol/L Low 98-108 [facility] Eosinophil percentageOrdered By: Valdez Olivo on 04-11-2025 Eosinophils/100 WBC (Bld) 0.0 % 0-5 [facility] [facility] Erythrocyte distribution wid th ratioOrdered By: Valdez Olivo on 04-11-2025 Erythrocyte distribution width (RBC) [Ratio] 16.6 % High 11.6-14.6 [facility] Erythrocyte distribution wid th standard deviationOrdered By: Valdez Olivo on 04-11-2025 Erythrocyte distribution width (RBC) [Ratio] 52.9 fl High 35.1-43.9 [facility] Glomerular filtration rate ( GFR) estimation/1.73 sq m using serum, plasma, or whole bOrdered By: Valdez Olivo on 04-11-2025 GFR/1.73 sq M.predicted among non-blacks MDRD (S/P/Bld) [Vol rate/Area] 43 mL/min/{1.73_m2} Low >60 [facility] Gram Stainon 04-11-2025 GS Centrifuged Specimen ? Culture performed on centrifuged specimen Gram Stain 1+ White Blood Cells No organisms seen Normal [facility] Comment on above: Performed By: #### M 100.2900, M100.4001, L350.1000, L200.0200, M100.2000 ####[facility] [address] [place], [address] Hematocrit Auto (Bld) [Volum e fraction]Ordered By: Valdez Olivo on 04-11-2025 Hematocrit (Bld) [Volume fraction] 28.4 % Low 40-54 [facility] Hemoglobin measurementOrdere d By: Valdez Olivo on 04-11-2025 Hemoglobin (Bld) [Mass/Vol] 8.7 g/dL Low 13.0-16.5 [facility] Immature granulocytes/100 WB C Auto (Bld)Ordered By: Valdez Olivo on 04-11-2025 Immature granulocytes/100 WBC (Bld) 0.600 % 0.0-0.9 [facility] MCV (mean corpuscular volume ) determinationOrdered By: Valdez Olivo on 04-11-2025 MCV (RBC) [Entitic vol] 87.1 fL 80-94 [facility] Mean corpuscular hemoglobin (MCH) determinationOrdered By: Valdez Olivo on 04-11-2025 MCH (RBC) [Entitic mass] 26.7 pg Low 27.0-32.0 [facility] Monocyte percentageOrdered B y: Valdez Olivo on 04-11-2025 Monocytes/100 WBC (Bld) 8.7 % 0-10 [facility] Neutrophil percentageOrdered By: Valdez Olivo on 04-11-2025 Neutrophils/100 WBC (Bld) 87.3 % High 47-70 [facility] Platelet countOrdered By: Aiden Olivo on 04-11-2025 Platelets (Bld) [#/Vol] 186 10*3/uL 150-450 [facility] Potassium measurement (mass/ volume)Ordered By: Valdez Olivo on 04-11-2025 Potassium (Unsp spec) [Mass/Vol] 4.1 mmol/L 3.3-5.1 [facility] RBC Auto (Bld) [#/Vol]Ordere d By: Vadlez Olivo 04-11-2025 RBC (Bld) [#/Vol] 3.26 10*6/uL Low 4.6-6.2 [facility] Serum creatinine measurement (mass/volume)Ordered By: Valdez Olivo 04-11-2025 Creatinine [Mass/Vol] 1.62 mg/dL High 0.70-1.20 [facility] Serum glucose measurement (m ass/volume)Ordered By: Valdez Olivo on 04-11-2025 Glucose [Mass/Vol] 176 mg/dL High 70-99 [facility] Serum or plasma calcium [place] urement (mass/volume)Ordered By: Valdez Olivo 04-11-2025 Calcium [Mass/Vol] 8.6 mg/dL 7.6-11.0 [facility] Serum or plasma urea nitroge n measurement (mass/volume)Ordered By: Valdez Olivo 04-11-2025 Urea nitrogen [Mass/Vol] 68 mg/dL High 4-19 [facility] Sodium levelOrdered By: Valdez Olivo on 04-11-2025 Sodium [Moles/Vol] 138 mmol/L 133-145 [facility] White blood cell (WBC) count Ordered By: Valdez Olivo on 04-11-2025 WBC (Bld) [#/Vol] 10.3 10*3/uL 4.4-11.0 [facility] Absolute lymphocyte countOrd ered By: Nicola Roman on 04-10-2025 Lymphocytes Auto (Unsp spec) [#/Vol] 0.17 10*3/uL Low 0.83-4.51 [facility] Activated partial thrombopla stin time (aPTT) in platelet poor plasma by coagulation aOrdered By: Nicola Marroquin on 04-10-2025 aPTT Coag (PPP) [Time] 29.5 s 24.1-36.2 [facility] Anaerobic cultureOrdered By: Nicola Roman on 04-10-2025 Bacteria identified Anaer cx Nom (Unsp spec) No anaerobic bacteria isolated. [facility] Anion gap in Serum or Plasma Ordered By: Nicola Roman on 04-10-2025 Anion gap [Moles/Vol] 12 mmol/L 5-15 [facility] Automated lymphocyte count a s percentage of total leukocytesOrdered By: Nicola Roman on 04-10-2025 Lymphocytes/100 WBC Auto (Unsp spec) 1.9 % Low 19-41 [facility] BUN/creatinine ratioOrdered By: Nicola Roman on 04-10-2025 Urea nitrogen/Creatinine [Mass ratio] 44.4 mg/mg High 10-20 [facility] Basic Metabolic Profile (BMP )on 04-10-2025 BUN/CRE 44.4 RATIO High 10- [facility] Comment on above: Performed By: #### L 100.0100, L500.2500 ####[facility] [address] [place], [place], [id number] Calcium [Mass/Vol] 8.4 mg/dL Normal 7.6-11.0 [facility] Comment on above: Performed By: #### L 100.0100, L500.2500 ####[facility] [address] [place], [address] Chloride [Moles/Vol] 92 mmol/L Low 98-108 [facility] Comment on above: Performed By: #### L 100.0100, L500.2500 ####[facility] [address] [place], [address] CO2 [Moles/Vol] 32.1 mmol/L High 21.0-32.0 [facility] Comment on above: Performed By: #### L 100.0100, L500.2500 ####[facility] [address] [place], [address] Creatinine [Mass/Vol] 1.71 mg/dL High 0.70-1.20 [facility] Comment on above: Performed By: #### L 100.0100, L500.2500 ####[facility] [address] [place], [address] ECRCL 31.09 ml/min Low 50-250 [facility] Comment on above: Performed By: #### L 100.0100, L500.2500 ####[facility] [address] [place], [address] GAP 12 Normal 5-15 [facility] Comment on above: Performed By: #### L 100.0100, L500.2500 ####[facility] [address] [place], [address] GFR/1.73 sq M.predicted among non-blacks MDRD (S/P/Bld) [Vol rate/Area] 40 mL/min/{1.73_m2} Low >60 [facility] Comment on above: Result Comment: mL/m in/1.73m2 CKD-EPI Creatinine Equation (2020) Performed By: #### L 100.0100, L500.2500 ####[facility] [address] [place], [address] Glucose [Mass/Vol] 244 mg/dL High 70-99 [facility] Comment on above: Performed By: #### L 100.0100, L500.2500 ####[facility] [address] [place], [address] Potassium [Moles/Vol] 4.1 mmol/L Normal 3.3-5.1 [facility] Comment on above: Performed By: #### L 100.0100, L500.2500 ####[facility] [address] [place], [address] Sodium [Moles/Vol] 137 mmol/L Normal 133-145 [facility] Comment on above: Performed By: #### L 100.0100, L500.2500 ####[facility] [address] [place], [address] Urea nitrogen [Mass/Vol] 76 mg/dL High 4-19 [facility] Comment on above: Performed By: #### L 100.0100, L500.2500 ####[facility] [address] [place], [address] Basophil percentageOrdered B y: Nicola Roman on 04-10-2025 Basophils/100 WBC (Bld) 0.1 % 0-1 [facility] Bedside Glucoseon 04-10-2025 FINGERSTICK GLU 341 mg/dL High 74-106 [facility] Comment on above: Result Comment: KODY GEMENT OF PATIENT CARE PER NURSING PROTOCOL Performed By: #### L 501.080 ####[facility] [address] [place], [address] FINGERSTICK GLU 327 mg/dL High 74-106 [facility] Comment on above: Result Comment: KODY GEMENT OF PATIENT CARE PER NURSING PROTOCOL Performed By: #### L 501.080 ####[facility] [address] [place], [address] FINGERSTICK GLU 346 mg/dL High 74-106 [facility] Comment on above: Result Comment: KODY GEMENT OF PATIENT CARE PER NURSING PROTOCOL Performed By: #### L 501.080 ####[facility] [address] [place], [address] FINGERSTICK GLU 236 mg/dL High 74-106 [facility] Comment on above: Result Comment: KODY GEMENT OF PATIENT CARE PER NURSING PROTOCOL Performed By: #### L 501.080 ####[facility] [address] [place], [address] Body Fluid Cell Count+Diffon 04-10-2025 PATH COMM/BF Reviewed Normal [facility] Comment on above: Order Comment: The r eference range and other method performancespecifications have not been established for this bodyfluid. The test must be integrated into the clinicalcontext for interpretation. Result Comment: HOME DEPOT REP MYRANDA INFLAMMATORY CELLS. OCCASIONAL MESOTHELIAL CELLSNOTED. NO MALIGNANT CELLS IDENTIFIED.Ludmila GOMEZ MD 04/10/25 @1730 AMENDED REPORT 04/10/251734 PATH COMM/BF previously reported as: May follow Performed By: #### M 100.2900, M100.4001, L350.1000, L200.0200, M100.2000 ####[facility] [address] [place], [address] Body fluid appearance (nomin al result)Ordered By: Nicola Roman on 04-10-2025 Appearance (Body fld) CLEAR [facility] Body fluid color determinati onOrdered By: Nicola Roman on 04-10-2025 Color (Body fld) YELLOW [facility] Body fluid cultureOrdered By : Nicola Roman on 04-10-2025 Microbial culture, body fluid Culture exhibits no growth. [facility] Body fluid lactate dehydroge nase measurement (enzymatic activity/volume) by pyruvateOrdered By: Nicola Roman on 04-10-2025 LDH Pyruvate to lactate reaction (Body fld) [Catalytic activity/Vol] 61 Units/L Not Establ. [facility] Body fluid leukocytes count (number/volume)Ordered By: Nicola Roman on 04-10-2025 WBC (Body fld) [#/Vol] 0.128 10*3/uL [facility] Body fluid lymphocytes/100 l eukocytesOrdered By: Nicola Roman on 04-10-2025 Lymphocytes/100 WBC (Body fld) 44 % [facility] Body fluid macrophage countO rdered By: Nicola Roman on 04-10-2025 Macrophages (Body fld) [#/Vol] 41 % [facility] Body fluid mononuclear cell percentageOrdered By: Nicola Roman on 04-10-2025 Mononuclear cells/100 WBC (Body fld) 94.6 % [facility] Body fluid protein measureme nt (mass/volume)Ordered By: Nicola Roman on 04-10-2025 Protein (Body fld) [Mass/Vol] 2.1 g/dL Not Establ. [facility] Body fluid segmented neutrop hils count (number/volume)Ordered By: Nicola Roman on 04-10-2025 Segmented neutrophils (Body fld) [#/Vol] 6 % [facility] Body fluid total cell countO rdered By: Nicola Roman on 04-10-2025 Cells Counted Total (Body fld) [#] 0.154 10^3/ul [facility] CBC W/Diff, Automatedon 03-21 Absolute Lymph 0.17 X10 3/uL Low 0.83-4.51 [facility] Comment on above: Performed By: #### L 100.0100, L500.2500 ####[facility] [address] [place], [address] Absolute Neut 8.2 X10 3/uL High 2.0-7.7 [facility] Comment on above: Performed By: #### L 100.0100, L500.2500 ####[facility] [address] [place], [address] Basophils/100 WBC (Bld) 0.1 % Normal 0-1 [facility] Comment on above: Performed By: #### L 100.0100, L500.2500 ####[facility] [address] [place], [address] Eosinophils/100 WBC (Bld) 0.0 % Normal 0-5 [facility] Comment on above: Performed By: #### L 100.0100, L500.2500 ####[facility] [address] [place], [address] Erythrocyte distribution width (RBC) [Ratio] 17.1 % High 11.6-14.6 [facility] Comment on above: Performed By: #### L 100.0100, L500.2500 ####[facility] [address] [place], [address] Hematocrit (Bld) [Volume fraction] 28.2 % Low 40-54 [facility] Comment on above: Performed By: #### L 100.0100, L500.2500 ####[facility] [address] [place], [address] Hemoglobin (Bld) [Mass/Vol] 8.7 g/dL Low 13.0-16.5 [facility] Comment on above: Performed By: #### L 100.0100, L500.2500 ####[facility] [address] [place], [address] IG% 0.900 Normal 0.0-0.9 [facility] Comment on above: Result Comment: IG% - Immature Granulocytes (promyelocytes, myelocytes andmetamyelocytes) > 1% indicates that a LEFT SHIFT is Present. Performed By: #### L 100.0100, L500.2500 ####[facility] [address] [place], [address] Lymphocytes/100 WBC (Bld) 1.9 % Low 19-41 [facility] Comment on above: Performed By: #### L 100.0100, L500.2500 ####[facility] [address] [place], [address] MCH (RBC) [Entitic mass] 26.9 pg Low 27.0-32.0 [facility] Comment on above: Performed By: #### L 100.0100, L500.2500 ####[facility] [address] [place], [address] MCHC (RBC) [Mass/Vol] 30.9 g/dL Low 32-36 [facility] Comment on above: Performed By: #### L 100.0100, L500.2500 ####[facility] [address] [place], [address] MCV (RBC) [Entitic vol] 87.0 fL Normal 80-94 [facility] Comment on above: Performed By: #### L 100.0100, L500.2500 ####[facility] [address] [place], [address] Monocytes/100 WBC (Bld) 5.5 % Normal 0-10 [facility] Comment on above: Performed By: #### L 100.0100, L500.2500 ####[facility] [address] [place], [address] Neutrophils/100 WBC (Bld) 91.6 % High 47-70 [facility] Comment on above: Performed By: #### L 100.0100, L500.2500 ####[facility] [address] [place], [address] Nucleated RBC (Bld) [#/Vol] 0.2 10*3/uL Normal 0-5 [facility] Comment on above: Performed By: #### L 100.0100, L500.2500 ####[facility] [address] [place], [address] Platelet mean volume (Bld) [Entitic vol] 10.0 fL Normal 6.2-12.0 [facility] Comment on above: Performed By: #### L 100.0100, L500.2500 ####[facility] [address] [place], [address] Platelets (Bld) [#/Vol] 208 10*3/uL Normal 150-450 [facility] Comment on above: Performed By: #### L 100.0100, L500.2500 ####[facility] [address] [place], [address] RBC (Bld) [#/Vol] 3.24 10*6/uL Low 4.6-6.2 [facility] Comment on above: Performed By: #### L 100.0100, L500.2500 ####[facility] [address] [place], [address] RDW SD 53.5 fl High 35.1-43.9 [facility] Comment on above: Performed By: #### L 100.0100, L500.2500 ####[facility] [address] [place], [address] WBC (Bld) [#/Vol] 9.0 10*3/uL Normal 4.4-11.0 [facility] Comment on above: Performed By: #### L 100.0100, L500.2500 ####[facility] [address] [place], [address] Carbon dioxide, total [Moles /volume] in Central venous bloodOrdered By: Nicola Roman on 04-10-2025 CO2 [Moles/Vol] 32.1 mmol/L High 21.0-32.0 [facility] Chest without Contraston Chest without Contrast Normal [facility] Chloride assayOrdered By: Stephen Roman on 04-10-2025 Chloride [Moles/Vol] 92 mmol/L Low 98-108 [facility] Cytology report of Body flui d Cyto stainOrdered By: Nicola Roman on 04-10-2025 Cytology report Cyto stain Doc (Body fld) SEE PATHOLOGY REPORT [facility] Cytology, Body Fluid / CSFon 04-10-2025 CYTOLOGY,BF/CSF SEE PATHOLOGY REPORT Normal [facility] Comment on above: Result Comment: Spec imen submitted to Anatomical Pathology Department [facility]. Performed By: #### M 100.2900, M100.4001, L350.1000, L200.0200, M100.2000 ####[facility] [address] [place], [address] Eosinophil percentageOrdered By: Nicola Roman on 04-10-2025 Eosinophils/100 WBC (Bld) 0.0 % 0-5 [facility] Erythrocyte distribution wid th ratioOrdered By: Nicola Roman on 04-10-2025 Erythrocyte distribution width (RBC) [Ratio] 17.1 % High 11.6-14.6 [facility] Erythrocyte distribution wid th standard deviationOrdered By: Nicola Roman on 04-10-2025 Erythrocyte distribution width (RBC) [Ratio] 53.5 fl High 35.1-43.9 [facility] Glomerular filtration rate ( GFR) estimation/1.73 sq m using serum, plasma, or whole bOrdered By: Nicola Roman on 04-10-2025 GFR/1.73 sq M.predicted among non-blacks MDRD (S/P/Bld) [Vol rate/Area] 40 mL/min/{1.73_m2} Low >60 [facility] deOrdered By: Nicola Roman on 04-10-2025 Glucose [Mass/Vol] 327 mg/dL High 74-106 [facility] Glucose, Body Fluidon 2024 GLUC, BODY FLD 274 mg/dL Normal Not Establ. [facility] Comment on above: Performed By: #### L 504.0250, L503.0100, L503.0300 ####[facility] [address] [place], [place], [id number] Gram stainOrdered By: Nicola Roman on 04-10-2025 Microscopic observation Gram stain Nom (Unsp spec) [facility] Hematocrit Auto (Bld) [Volum e fraction]Ordered By: Nicola Roman on 04-10-2025 Hematocrit (Bld) [Volume fraction] 28.2 % Low 40-54 [facility] Hemoglobin measurementOrdere d By: Nicola Roman on 04-10-2025 Hemoglobin (Bld) [Mass/Vol] 8.7 g/dL Low 13.0-16.5 [facility] Immature granulocytes/100 WB C Auto (Bld)Ordered By: Nicola Roman on 04-10-2025 Immature granulocytes/100 WBC (Bld) 0.900 % 0.0-0.9 [facility] LDHon 04-10-2025 LDH 179 U/L Normal 87-241 [facility] Comment on above: Order Comment: FG1 3 O Performed By: #### L 504.2610 ####[facility] [address] [place], [address] LDH,Body Fluidon 04-10-2025 LDH,BF 61 Units/L Normal Not Establ. [facility] Comment on above: Performed By: #### L 504.0250, L503.0100, L503.0300 ####[facility] [address] [place], [address] MCV (mean corpuscular volume ) determinationOrdered By: Nicola Roman on 04-10-2025 MCV (RBC) [Entitic vol] 87.0 fL 80-94 [facility] Mean corpuscular hemoglobin (MCH) determinationOrdered By: Nicola Roman on 04-10-2025 MCH (RBC) [Entitic mass] 26.9 pg Low 27.0-32.0 [facility] Monocyte detectionOrdered By : Nicola Roman on 04-10-2025 Monocytes/100 WBC (Bld) 9 % [facility] Monocyte percentageOrdered B y: Nicola Roman on 04-10-2025 Monocytes/100 WBC (Bld) 5.5 % 0-10 [facility] Neutrophil percentageOrdered By: Nicola Roman on 04-10-2025 Neutrophils/100 WBC (Bld) 91.6 % High 47-70 [facility] No Panel InformationOrdered By: Nicola Roman on 04-10-2025 495 /mm3 [facility] SEE COMMENT [facility] Pacemaker Checkon 04-10-2025 Pacemaker Check Normal [facility] Partial Thromboplast Timeon 04-10-2025 aPTT Coag (Bld) [Time] 29.5 s Normal 24.1-36.2 [facility] Comment on above: Performed By: #### L 300.4310, L300.3900 ####[facility] [address] [place], [address] Pathologist interpretation o f Body fluid testsOrdered By: Nicola Roman on 04-10-2025 Pathologist interpretation (Body fld) [Interp] Reviewed [facility] Platelet countOrdered By: Stephen Roman on 04-10-2025 Platelets (Bld) [#/Vol] 208 10*3/uL 150-450 [facility] Potassium measurement (mass/ volume)Ordered By: Nicola Roman on 04-10-2025 Potassium (Unsp spec) [Mass/Vol] 4.1 mmol/L 3.3-5.1 [facility] Protein, Body Fluidon 2024 Protein [Mass/Vol] 2.1 g/dL Normal Not Establ. [facility] Comment on above: Performed By: #### L 504.0250, L503.0100, L503.0300 ####[facility] [address] [place], [address] Prothrombin Time w/INRon INR Coag (PPP) [Relative time] 1.3 {INR} Normal [facility] Comment on above: Performed By: #### L 300.4310, L300.3900 ####[facility] [address] [place], [address] PT Coag (PPP) [Time] 16.7 s High 11.7-14.9 [facility] Comment on above: Performed By: #### L 300.4310, L300.3900 ####[facility] [address] [place], [address] Prothrombin timeOrdered By: Nicola Marroquin on 04-10-2025 PT Coag (PPP) [Time] 16.7 s High 11.7-14.9 [facility] RBC Auto (Bld) [#/Vol]Ordere d By: Nicola Roman on 04-10-2025 RBC (Bld) [#/Vol] 3.24 10*6/uL Low 4.6-6.2 [facility] Serum creatinine measurement (mass/volume)Ordered By: Nicola Roman on 04-10-2025 Creatinine [Mass/Vol] 1.71 mg/dL High 0.70-1.20 [facility] Serum glucose measurement (m ass/volume)Ordered By: Nicola Roman on 04-10-2025 Glucose [Mass/Vol] 244 mg/dL High 70-99 [facility] Serum or plasma calcium [place] urement (mass/volume)Ordered By: Nicola Roman on 04-10-2025 Calcium [Mass/Vol] 8.4 mg/dL 7.6-11.0 [facility] Serum or plasma urea nitroge n measurement (mass/volume)Ordered By: Nicola Roman on 04-10-2025 Urea nitrogen [Mass/Vol] 76 mg/dL High 4-19 [facility] Sodium levelOrdered By: Jaspal Roman on 04-10-2025 Sodium [Moles/Vol] 137 mmol/L 133-145 [facility] Special Stain Group IIon Special Stain Group II Normal [facility] Comment on above: Performed By: #### P SSII ####[facility] [address] [place], [place], [id number] Specimen source identificati on of body fluidOrdered By: Nicola Roman on 04-10-2025 Specimen source Nom (Body fld) THORACENTESIS [facility] Thoracentesis W USon 025 Thoracentesis W US Normal [facility] White blood cell (WBC) count Ordered By: Nicola Roman on 04-10-2025 WBC (Bld) [#/Vol] 9.0 10*3/uL 4.4-11.0 [facility] 12 Lead EKGon 04-09-2025 12 Lead EKG Normal [facility] Basic Metabolic Profile (BMP )on 04-09-2025 BUN/CRE 37.7 RATIO High 10-20 [facility] Comment on above: Performed By: #### L 501.2300, L501.5200, L100.0100, L500.2500 ####[facility] [address] [place], [address] Calcium [Mass/Vol] 8.4 mg/dL Normal 7.6-11.0 [facility] Comment on above: Performed By: #### L 501.2300, L501.5200, L100.0100, L500.2500 ####[facility] [address] [place], [address] Chloride [Moles/Vol] 92 mmol/L Low 98-108 [facility] Comment on above: Performed By: #### L 501.2300, L501.5200, L100.0100, L500.2500 ####[facility] [address] [place], [address] CO2 [Moles/Vol] 31.9 mmol/L Normal 21.0-32.0 [facility] Comment on above: Performed By: #### L 501.2300, L501.5200, L100.0100, L500.2500 ####[facility] [address] [place], [address] Creatinine [Mass/Vol] 1.95 mg/dL High 0.70-1.20 [facility] Comment on above: Performed By: #### L 501.2300, L501.5200, L100.0100, L500.2500 ####[facility] [address] [place], [address] ECRCL 27.26 ml/min Low 50-250 [facility] Comment on above: Performed By: #### L 501.2300, L501.5200, L100.0100, L500.2500 ####[facility] [address] [place], [address] GAP 12 Normal 5-15 [facility] Comment on above: Performed By: #### L 501.2300, L501.5200, L100.0100, L500.2500 ####[facility] [address] [place], [address] GFR/1.73 sq M.predicted among non-blacks MDRD (S/P/Bld) [Vol rate/Area] 34 mL/min/{1.73_m2} Low >60 [facility] Comment on above: Result Comment: mL/m in/1.73m2 CKD-EPI Creatinine Equation (2020) Performed By: #### L 501.2300, L501.5200, L100.0100, L500.2500 ####[facility] [address] [place], [address] Glucose [Mass/Vol] 232 mg/dL High 70-99 [facility] Comment on above: Performed By: #### L 501.2300, L501.5200, L100.0100, L500.2500 ####[facility] [address] [place], [address] Potassium [Moles/Vol] 3.9 mmol/L Normal 3.3-5.1 [facility] Comment on above: Performed By: #### L 501.2300, L501.5200, L100.0100, L500.2500 ####[facility] [address] [place], [address] Sodium [Moles/Vol] 135 mmol/L Normal 133-145 [facility] Comment on above: Performed By: #### L 501.2300, L501.5200, L100.0100, L500.2500 ####[facility] [address] [place], [address] Urea nitrogen [Mass/Vol] 74 mg/dL High 4-19 [facility] Comment on above: Performed By: #### L 501.2300, L501.5200, L100.0100, L500.2500 ####[facility] [address] [place], [address] Bedside Glucoseon 04-09-2025 FINGERSTICK GLU 316 mg/dL High 74-106 [facility] Comment on above: Result Comment: KODY GEMENT OF PATIENT CARE PER NURSING PROTOCOL Performed By: #### L 501.080 ####[facility] [address] [place], [address] FINGERSTICK GLU 209 mg/dL High 74-106 [facility] Comment on above: Result Comment: KODY GEMENT OF PATIENT CARE PER NURSING PROTOCOL Performed By: #### L 501.080 ####[facility] [address] [place], [address] FINGERSTICK GLU 273 mg/dL High 74-106 [facility] Comment on above: Result Comment: KODY GEMENT OF PATIENT CARE PER NURSING PROTOCOL Performed By: #### L 501.080 ####[facility] [address] [place], [address] CBC W/Diff, Automatedon 08- Absolute Lymph 0.19 X10 3/uL Low 0.83-4.51 [facility] Comment on above: Performed By: #### L 501.2300, L501.5200, L100.0100, L500.2500 ####[facility] [address] [place], [address] Absolute Neut 6.3 X10 3/uL Normal 2.0-7.7 [facility] Comment on above: Performed By: #### L 501.2300, L501.5200, L100.0100, L500.2500 ####[facility] [address] [place], [address] Basophils/100 WBC (Bld) 0.1 % Normal 0-1 [facility] Comment on above: Performed By: #### L 501.2300, L501.5200, L100.0100, L500.2500 ####[facility] [address] [place], [address] Eosinophils/100 WBC (Bld) 0.0 % Normal 0-5 [facility] Comment on above: Performed By: #### L 501.2300, L501.5200, L100.0100, L500.2500 ####[facility] [address] [place], [address] Erythrocyte distribution width (RBC) [Ratio] 16.9 % High 11.6-14.6 [facility] Comment on above: Performed By: #### L 501.2300, L501.5200, L100.0100, L500.2500 ####[facility] [address] [place], [address] Hematocrit (Bld) [Volume fraction] 27.7 % Low 40-54 [facility] Comment on above: Performed By: #### L 501.2300, L501.5200, L100.0100, L500.2500 ####[facility] [address] [place], [address] Hemoglobin (Bld) [Mass/Vol] 8.6 g/dL Low 13.0-16.5 [facility] Comment on above: Performed By: #### L 501.2300, L501.5200, L100.0100, L500.2500 ####[facility] [address] [place], [address] IG% 0.600 Normal 0.0-0.9 [facility] Comment on above: Result Comment: IG% - Immature Granulocytes (promyelocytes, myelocytes andmetamyelocytes) > 1% indicates that a LEFT SHIFT is Present. Performed By: #### L 501.2300, L501.5200, L100.0100, L500.2500 ####[facility] [address] [place], [address] Lymphocytes/100 WBC (Bld) 2.8 % Low 19-41 [facility] Comment on above: Performed By: #### L 501.2300, L501.5200, L100.0100, L500.2500 ####[facility] [address] [place], [address] MCH (RBC) [Entitic mass] 27.0 pg Normal 27.0-32.0 [facility] Comment on above: Performed By: #### L 501.2300, L501.5200, L100.0100, L500.2500 ####[facility] [address] [place], [address] MCHC (RBC) [Mass/Vol] 31.0 g/dL Low 32-36 [facility] Comment on above: Performed By: #### L 501.2300, L501.5200, L100.0100, L500.2500 ####[facility] [address] [place], [address] MCV (RBC) [Entitic vol] 87.1 fL Normal 80-94 [facility] Comment on above: Performed By: #### L 501.2300, L501.5200, L100.0100, L500.2500 ####[facility] [address] [place], [address] Monocytes/100 WBC (Bld) 4.7 % Normal 0-10 [facility] Comment on above: Performed By: #### L 501.2300, L501.5200, L100.0100, L500.2500 ####[facility] [address] [place], [address] Neutrophils/100 WBC (Bld) 91.8 % High 47-70 [facility] Comment on above: Performed By: #### L 501.2300, L501.5200, L100.0100, L500.2500 ####[facility] [address] [place], [address] Nucleated RBC (Bld) [#/Vol] 0.3 10*3/uL Normal 0-5 [facility] Comment on above: Performed By: #### L 501.2300, L501.5200, L100.0100, L500.2500 ####[facility] [address] [place], [address] Platelet mean volume (Bld) [Entitic vol] 10.1 fL Normal 6.2-12.0 [facility] Comment on above: Performed By: #### L 501.2300, L501.5200, L100.0100, L500.2500 ####[facility] [address] [place], [address] Platelets (Bld) [#/Vol] 203 10*3/uL Normal 150-450 [facility] Comment on above: Performed By: #### L 501.2300, L501.5200, L100.0100, L500.2500 ####[facility] [address] [place], [address] RBC (Bld) [#/Vol] 3.18 10*6/uL Low 4.6-6.2 [facility] Comment on above: Performed By: #### L 501.2300, L501.5200, L100.0100, L500.2500 ####[facility] [address] [place], [address] RDW SD 53.1 fl High 35.1-43.9 [facility] Comment on above: Performed By: #### L 501.2300, L501.5200, L100.0100, L500.2500 ####[facility] [address] [place], [address] WBC (Bld) [#/Vol] 6.9 10*3/uL Normal 4.4-11.0 [facility] Comment on above: Performed By: #### L 501.2300, L501.5200, L100.0100, L500.2500 ####[facility] [address] [place], [address] CVS/PACEMAKERon 04-09-2025 CVS/PACEMAKER Normal [facility] Chest 1 View (Portable)on Chest 1 View (Portable) Normal [facility] Electrocardiogram reportOrde red By: Orly Mitchell on 04-09-2025 EKG study [facility] Work Phone: Magnesiumon 04-09-2025 Magnesium [Mass/Vol] 2.2 mg/dL Normal 1.5-2.2 [facility] Comment on above: Performed By: #### L 501.2300, L501.5200, L100.0100, L500.2500 ####[facility] [address] [place], [address] Magnesium measurement (mass/ volume)Ordered By: Nicola Roman on 04-09-2025 Magnesium (Unsp spec) [Mass/Vol] 2.2 mg/dL 1.5-2.2 [facility] Phosphoruson 04-09-2025 Phosphate [Mass/Vol] 3.9 mg/dL Normal 2.7-4.5 [facility] Comment on above: Performed By: #### L 501.2300, L501.5200, L100.0100, L500.2500 ####[facility] [address] [place], [address] Basic Metabolic Profile (BMP )on 04-08-2025 BUN/CRE 33.8 RATIO High 10-20 [facility] Comment on above: Performed By: #### L 500.2500, L100.0100 ####[facility] [address] [place], [address] Calcium [Mass/Vol] 8.6 mg/dL Normal 7.6-11.0 [facility] Comment on above: Performed By: #### L 500.2500, L100.0100 ####[facility] [address] [place], [address] Chloride [Moles/Vol] 95 mmol/L Low 98-108 [facility] Comment on above: Performed By: #### L 500.2500, L100.0100 ####[facility] [address] [place], [address] CO2 [Moles/Vol] 32.0 mmol/L Normal 21.0-32.0 [facility] Comment on above: Performed By: #### L 500.2500, L100.0100 ####[facility] [address] [place], [address] Creatinine [Mass/Vol] 1.91 mg/dL High 0.70-1.20 [facility] Comment on above: Performed By: #### L 500.2500, L100.0100 ####[facility] [address] [place], [address] ECRCL 27.84 ml/min Low 50-250 [facility] Comment on above: Performed By: #### L 500.2500, L100.0100 ####[facility] [address] [place], [address] GAP 11 Normal 5-15 [facility] Comment on above: Performed By: #### L 500.2500, L100.0100 ####[facility] [address] [place], [address] GFR/1.73 sq M.predicted among non-blacks MDRD (S/P/Bld) [Vol rate/Area] 35 mL/min/{1.73_m2} Low >60 [facility] Comment on above: Result Comment: mL/m in/1.73m2 CKD-EPI Creatinine Equation (2020) Performed By: #### L 500.2500, L100.0100 ####[facility] [address] [place], [address] Glucose [Mass/Vol] 240 mg/dL High 70-99 [facility] Comment on above: Performed By: #### L 500.2500, L100.0100 ####[facility] [address] [place], [address] Potassium [Moles/Vol] 4.0 mmol/L Normal 3.3-5.1 [facility] Comment on above: Performed By: #### L 500.2500, L100.0100 ####[facility] [address] [place], [address] Sodium [Moles/Vol] 138 mmol/L Normal 133-145 [facility] Comment on above: Performed By: #### L 500.2500, L100.0100 ####[facility] [address] [place], [address] Urea nitrogen [Mass/Vol] 65 mg/dL High 4-19 [facility] Comment on above: Performed By: #### L 500.2500, L100.0100 ####[facility] [address] [place], [address] Bedside Glucoseon 04-08-2025 FINGERSTICK GLU 216 mg/dL High 74-106 [facility] Comment on above: Result Comment: KODY GEMENT OF PATIENT CARE PER NURSING PROTOCOL Performed By: #### L 501.080 ####[facility] [address] [place], [address] FINGERSTICK GLU 270 mg/dL High 74-106 [facility] Comment on above: Result Comment: KODY GEMENT OF PATIENT CARE PER NURSING PROTOCOL Performed By: #### L 501.080 ####[facility] [address] [place], [address] FINGERSTICK GLU 199 mg/dL High 74-106 [facility] Comment on above: Result Comment: KODY STRONG OF PATIENT CARE PER NURSING PROTOCOL Performed By: #### L 501.080 ####[facility] [address] [place], [address] CBC W/Diff, Automatedon 08-2 0-5 Absolute Lymph 0.24 X10 3/uL Low 0.83-4.51 [facility] Comment on above: Performed By: #### L 500.2500, L100.0100 ####[facility] [address] [place], [address] Absolute Neut 6.3 X10 3/uL Normal 2.0-7.7 [facility] Comment on above: Performed By: #### L 500.2500, L100.0100 ####[facility] [address] [place], [address] Basophils/100 WBC (Bld) 0.0 % Normal 0-1 [facility] Comment on above: Performed By: #### L 500.2500, L100.0100 ####[facility] [address] [place], [address] Eosinophils/100 WBC (Bld) 0.0 % Normal 0-5 [facility] Comment on above: Performed By: #### L 500.2500, L100.0100 ####[facility] [address] [place], [address] Erythrocyte distribution width (RBC) [Ratio] 17.2 % High 11.6-14.6 [facility] Comment on above: Performed By: #### L 500.2500, L100.0100 ####[facility] [address] [place], [address] Hematocrit (Bld) [Volume fraction] 27.0 % Low 40-54 [facility] Comment on above: Performed By: #### L 500.2500, L100.0100 ####[facility] [address] [place], [address] Hemoglobin (Bld) [Mass/Vol] 8.3 g/dL Low 13.0-16.5 [facility] Comment on above: Performed By: #### L 500.2500, L100.0100 ####[facility] [address] [place], [address] IG% 0.600 Normal 0.0-0.9 [facility] Comment on above: Result Comment: IG% - Immature Granulocytes (promyelocytes, myelocytes andmetamyelocytes) > 1% indicates that a LEFT SHIFT is Present. Performed By: #### L 500.2500, L100.0100 ####[facility] [address] [place], [address] Lymphocytes/100 WBC (Bld) 3.5 % Low 19-41 [facility] Comment on above: Performed By: #### L 500.2500, L100.0100 ####[facility] [address] [place], [address] MCH (RBC) [Entitic mass] 26.9 pg Low 27.0-32.0 [facility] Comment on above: Performed By: #### L 500.2500, L100.0100 ####[facility] [address] [place], [address] MCHC (RBC) [Mass/Vol] 30.7 g/dL Low 32-36 [facility] Comment on above: Performed By: #### L 500.2500, L100.0100 ####[facility] [address] [place], [address] MCV (RBC) [Entitic vol] 87.4 fL Normal 80-94 [facility] Comment on above: Performed By: #### L 500.2500, L100.0100 ####[facility] [address] [place], [address] Monocytes/100 WBC (Bld) 4.5 % Normal 0-10 [facility] Comment on above: Performed By: #### L 500.2500, L100.0100 ####[facility] [address] [place], [address] Neutrophils/100 WBC (Bld) 91.4 % High 47-70 [facility] Comment on above: Performed By: #### L 500.2500, L100.0100 ####[facility] [address] [place], [address] Nucleated RBC (Bld) [#/Vol] 0 10*3/uL Normal 0-5 [facility] Comment on above: Performed By: #### L 500.2500, L100.0100 ####[facility] [address] [place], [address] Platelet mean volume (Bld) [Entitic vol] 10.7 fL Normal 6.2-12.0 [facility] Comment on above: Performed By: #### L 500.2500, L100.0100 ####[facility] [address] [place], [address] Platelets (Bld) [#/Vol] 192 10*3/uL Normal 150-450 [facility] Comment on above: Performed By: #### L 500.2500, L100.0100 ####[facility] [address] [place], [address] RBC (Bld) [#/Vol] 3.09 10*6/uL Low 4.6-6.2 [facility] Comment on above: Performed By: #### L 500.2500, L100.0100 ####[facility] [address] [place], [address] RDW SD 54.2 fl High 35.1-43.9 [facility] Comment on above: Performed By: #### L 500.2500, L100.0100 ####[facility] [address] [place], [address] WBC (Bld) [#/Vol] 6.9 10*3/uL Normal 4.4-11.0 [facility] Comment on above: Performed By: #### L 500.2500, L100.0100 ####[facility] [address] [place], [address] Consultation - Cardiologyon 04-08-2025 Consultation - Cardiology Normal [facility] Basic Metabolic Profile (BMP )on 04-07-2025 BUN/CRE 26.3 RATIO High 10-20 [facility] Comment on above: Performed By: #### L 500.2500, L501.2300 ####[facility] [address] [place], [address] Calcium [Mass/Vol] 8.8 mg/dL Normal 7.6-11.0 [facility] Comment on above: Performed By: #### L 500.2500, L501.2300 ####[facility] [address] [place], [address] Chloride [Moles/Vol] 96 mmol/L Low 98-108 [facility] Comment on above: Performed By: #### L 500.2500, L501.2300 ####[facility] [address] [place], [address] CO2 [Moles/Vol] 29.8 mmol/L Normal 21.0-32.0 [facility] Comment on above: Performed By: #### L 500.2500, L501.2300 ####[facility] [address] [place], [address] Creatinine [Mass/Vol] 2.21 mg/dL High 0.70-1.20 [facility] Comment on above: Performed By: #### L 500.2500, L501.2300 ####[facility] [address] [place], [address] ECRCL 24.06 ml/min Low 50-250 [facility] Comment on above: Performed By: #### L 500.2500, L501.2300 ####[facility] [address] [place], [address] GAP 11 Normal 5-15 [facility] Comment on above: Performed By: #### L 500.2500, L501.2300 ####[facility] [address] [place], [address] GFR/1.73 sq M.predicted among non-blacks MDRD (S/P/Bld) [Vol rate/Area] 29 mL/min/{1.73_m2} Low >60 [facility] Comment on above: Result Comment: mL/m in/1.73m2 CKD-EPI Creatinine Equation (2020) Performed By: #### L 500.2500, L501.2300 ####[facility] [address] [place], [address] Glucose [Mass/Vol] 171 mg/dL High 70-99 [facility] Comment on above: Performed By: #### L 500.2500, L501.2300 ####[facility] [address] [place], [address] Potassium [Moles/Vol] 4.6 mmol/L Normal 3.3-5.1 [facility] Comment on above: Performed By: #### L 500.2500, L501.2300 ####[facility] [address] [place], [address] Sodium [Moles/Vol] 137 mmol/L Normal 133-145 [facility] Comment on above: Performed By: #### L 500.2500, L501.2300 ####[facility] [address] [place], [address] Urea nitrogen [Mass/Vol] 58 mg/dL High 12-06 [facility] Comment on above: Performed By: #### L 500.2500, L501.2300 ####[facility] [address] [place], [address] Bedside Glucoseon 04-07-2025 FINGERSTICK GLU 272 mg/dL High 74-106 [facility] Comment on above: Result Comment: KODY GEMENT OF PATIENT CARE PER NURSING PROTOCOL Performed By: #### L 501.080 ####[facility] [address] [place], [address] FINGERSTICK GLU 249 mg/dL High 74-106 [facility] Comment on above: Result Comment: KODY GEMENT OF PATIENT CARE PER NURSING PROTOCOL Performed By: #### L 501.080 ####[facility] [address] [place], [address] FINGERSTICK GLU 303 mg/dL High 74-106 [facility] Comment on above: Result Comment: KODY GEMENT OF PATIENT CARE PER NURSING PROTOCOL Performed By: #### L 501.080 ####[facility] [address] [place], [address] FINGERSTICK GLU 162 mg/dL High 74-106 [facility] Comment on above: Result Comment: KODY GEMENT OF PATIENT CARE PER NURSING PROTOCOL Performed By: #### L 501.080 ####[facility] [address] [place], [address] CBC W/Diff, Automatedon 03-20 Absolute Lymph 0.20 X10 3/uL Low 0.83-4.51 [facility] Comment on above: Performed By: #### L 100.0100 ####[facility] [address] [place], [address] Absolute Neut 5.9 X10 3/uL Normal 2.0-7.7 [facility] Comment on above: Performed By: #### L 100.0100 ####[facility] [address] [place], [address] Basophils/100 WBC (Bld) 0.2 % Normal 0-1 [facility] Comment on above: Performed By: #### L 100.0100 ####[facility] [address] [place], [address] Eosinophils/100 WBC (Bld) 0.0 % Normal 0-5 [facility] Comment on above: Performed By: #### L 100.0100 ####[facility] [address] [place], [address] Erythrocyte distribution width (RBC) [Ratio] 17.1 % High 11.6-14.6 [facility] Comment on above: Performed By: #### L 100.0100 ####[facility] [address] [place], [address] Hematocrit (Bld) [Volume fraction] 25.6 % Low 40-54 [facility] Comment on above: Performed By: #### L 100.0100 ####[facility] [address] [place], [address] Hemoglobin (Bld) [Mass/Vol] 8.0 g/dL Low 13.0-16.5 [facility] Comment on above: Performed By: #### L 100.0100 ####[facility] [address] [place], [address] IG% 1.400 High 0.0-0.9 [facility] Comment on above: Result Comment: IG% - Immature Granulocytes (promyelocytes, myelocytes andmetamyelocytes) > 1% indicates that a LEFT SHIFT is Present. Performed By: #### L 100.0100 ####[facility] [address] [place], [address] Lymphocytes/100 WBC (Bld) 3.1 % Low 19-41 [facility] Comment on above: Performed By: #### L 100.0100 ####[facility] [address] [place], [address] MCH (RBC) [Entitic mass] 27.0 pg Normal 27.0-32.0 [facility] Comment on above: Performed By: #### L 100.0100 ####[facility] [address] [place], [address] MCHC (RBC) [Mass/Vol] 31.3 g/dL Low 32-36 [facility] Comment on above: Performed By: #### L 100.0100 ####[facility] [address] [place], [address] MCV (RBC) [Entitic vol] 86.5 fL Normal 80-94 [facility] Comment on above: Performed By: #### L 100.0100 ####[facility] [address] [place], [address] Monocytes/100 WBC (Bld) 2.5 % Normal 0-10 [facility] Comment on above: Performed By: #### L 100.0100 ####[facility] [address] [place], [address] Neutrophils/100 WBC (Bld) 92.8 % High 47-70 [facility] Comment on above: Performed By: #### L 100.0100 ####[facility] [address] [place], [address] Nucleated RBC (Bld) [#/Vol] 0 10*3/uL Normal 0-5 [facility] Comment on above: Performed By: #### L 100.0100 ####[facility] [address] [place], [address] Platelet mean volume (Bld) [Entitic vol] 10.4 fL Normal 6.2-12.0 [facility] Comment on above: Performed By: #### L 100.0100 ####[facility] [address] [place], [address] Platelets (Bld) [#/Vol] 189 10*3/uL Normal 150-450 [facility] Comment on above: Performed By: #### L 100.0100 ####[facility] [address] [place], [address] RBC (Bld) [#/Vol] 2.96 10*6/uL Low 4.6-6.2 [facility] Comment on above: Performed By: #### L 100.0100 ####[facility] [address] [place], [address] RDW SD 53.1 fl High 35.1-43.9 [facility] Comment on above: Performed By: #### L 100.0100 ####[facility] [address] [place], [address] WBC (Bld) [#/Vol] 6.4 10*3/uL Normal 4.4-11.0 [facility] Comment on above: Performed By: #### L 100.0100 ####[facility] [id number] [place], [address] Electrocardiogram reportOrde red By: Issa Looney on 04-07-2025 EKG study [facility] Work Phone: Phosphoruson 04-07-2025 Phosphate [Mass/Vol] 4.6 mg/dL High 2.7-4.5 [facility] Comment on above: Performed By: #### L 500.2500, L501.2300 ####[facility] [address] [place], [address] Bedside Glucoseon 04-06-2025 FINGERSTICK GLU 378 mg/dL High 74-106 [facility] Comment on above: Result Comment: KODY GEMENT OF PATIENT CARE PER NURSING PROTOCOL Performed By: #### L 501.080 ####[facility] [address] [place], [address] FINGERSTICK GLU 168 mg/dL High [facility]106 [facility] Comment on above: Result Comment: KODY GEMENT OF PATIENT CARE PER NURSING PROTOCOL Performed By: #### L 501.080 ####[facility] [address] [place], [address] FINGERSTICK GLU 140 mg/dL High [facility]106 [facility] Comment on above: Result Comment: KODY GEMENT OF PATIENT CARE PER NURSING PROTOCOL Performed By: #### L 501.080 ####[facility] [address] [place], [address] FINGERSTICK GLU 116 mg/dL High [facility]106 [facility] Comment on above: Result Comment: KODY GEMENT OF PATIENT CARE PER NURSING PROTOCOL Performed By: #### L 501.080 ####[facility] [address] [place], [address] FINGERSTICK GLU 112 mg/dL High -106 [facility] Comment on above: Result Comment: KODY GEMENT OF PATIENT CARE PER NURSING PROTOCOL Performed By: #### L 501.080 ####[facility] [address] [place], [address] Bilirubin, totalOrdered By: Nicola Madison on 04-06-2025 Bilirubin [Mass/Vol] 0.40 mg/dL 0.00-1.30 [facility] CBC W/Diff, Automatedon 03-20 Absolute Lymph 0.50 X10 3/uL Low 0.83-4.51 [facility] Comment on above: Performed By: #### L 100.0100 ####[facility] [address] [place], [address] Absolute Neut 6.4 X10 3/uL Normal 2.0-7.7 [facility] Comment on above: Performed By: #### L 100.0100 ####[facility] [address] [place], [address] Basophils/100 WBC (Bld) 0.5 % Normal 0-1 [facility] Comment on above: Performed By: #### L 100.0100 ####[facility] [address] [place], [address] Eosinophils/100 WBC (Bld) 0.5 % Normal 0-5 [facility] Comment on above: Performed By: #### L 100.0100 ####[facility] [address] [place], [address] Erythrocyte distribution width (RBC) [Ratio] 16.8 % High 11.6-14.6 [facility] Comment on above: Performed By: #### L 100.0100 ####[facility] [address] [place], [address] Hematocrit (Bld) [Volume fraction] 26.3 % Low 40-54 [facility] Comment on above: Performed By: #### L 100.0100 ####[facility] [address] [place], [address] Hemoglobin (Bld) [Mass/Vol] 7.9 g/dL Low 13.0-16.5 [facility] Comment on above: Performed By: #### L 100.0100 ####[facility] [address] [place], [address] IG% 0.600 Normal 0.0-0.9 [facility] Comment on above: Result Comment: IG% - Immature Granulocytes (promyelocytes, myelocytes andmetamyelocytes) > 1% indicates that a LEFT SHIFT is Present. Performed By: #### L 100.0100 ####[facility] [address] [place], [address] Lymphocytes/100 WBC (Bld) 6.4 % Low 19-41 [facility] Comment on above: Performed By: #### L 100.0100 ####[facility] [address] [place], [address] MCH (RBC) [Entitic mass] 26.9 pg Low 27.0-32.0 [facility] Comment on above: Performed By: #### L 100.0100 ####[facility] [address] [place], [address] MCHC (RBC) [Mass/Vol] 30.0 g/dL Low 32-36 [facility] Comment on above: Performed By: #### L 100.0100 ####[facility] [address] [place], [address] MCV (RBC) [Entitic vol] 89.5 fL Normal 80-94 [facility] Comment on above: Performed By: #### L 100.0100 ####[facility] [address] [place], [address] Monocytes/100 WBC (Bld) 10.1 % High 0-10 [facility] Comment on above: Performed By: #### L 100.0100 ####[facility] [address] [place], [address] Neutrophils/100 WBC (Bld) 81.9 % High 47-70 [facility] Comment on above: Performed By: #### L 100.0100 ####[facility] [address] [place], [address] Nucleated RBC (Bld) [#/Vol] 0 10*3/uL Normal 0-5 [facility] Comment on above: Performed By: #### L 100.0100 ####[facility] [address] [place], [address] Platelet mean volume (Bld) [Entitic vol] 10.4 fL Normal 6.2-12.0 [facility] Comment on above: Performed By: #### L 100.0100 ####[facility] [address] [place], [address] Platelets (Bld) [#/Vol] 178 10*3/uL Normal 150-450 [facility] Comment on above: Performed By: #### L 100.0100 ####[facility] [address] [place], [address] RBC (Bld) [#/Vol] 2.94 10*6/uL Low 4.6-6.2 [facility] Comment on above: Performed By: #### L 100.0100 ####[facility] [address] [place], [address] RDW SD 54.7 fl High 35.1-43.9 [facility] Comment on above: Performed By: #### L 100.0100 ####[facility] [address] [place], [address] WBC (Bld) [#/Vol] 7.8 10*3/uL Normal 4.4-11.0 [facility] Comment on above: Performed By: #### L 100.0100 ####[facility] [address] [place], [address] Chest 1 View (Portable)on Chest 1 View (Portable) Normal [facility] Comprehensive Metabolic Prof ilon 04-06-2025 Albumin [Mass/Vol] 3.3 g/dL Low 3.4-4.8 [facility] Comment on above: Performed By: #### L 501.2300, L503.7505, L500.4050 ####[facility] [address] [place], [address] Albumin/Globulin [Mass ratio] 0.9 {ratio} Normal 0.9-2.4 [facility] Comment on above: Performed By: #### L 501.2300, L503.7505, L500.4050 ####[facility] [address] [place], [address] ALK PHOS 70 U/L Normal 40-129 [facility] Comment on above: Performed By: #### L 501.2300, L503.7505, L500.4050 ####[facility] [address] [place], [address] ALT [Catalytic activity/Vol] 13 U/L Normal <=46 [facility] Comment on above: Performed By: #### L 501.2300, L503.7505, L500.4050 ####[facility] [address] [place], [address] AST [Catalytic activity/Vol] 19 U/L Normal <=37 [facility] Comment on above: Performed By: #### L 501.2300, L503.7505, L500.4050 ####[facility] [address] [place], [address] Bilirubin [Mass/Vol] 0.40 mg/dL Normal 0.00-1.30 [facility] Comment on above: Performed By: #### L 501.2300, L503.7505, L500.4050 ####[facility] [address] [place], [address] BUN/CRE 22.8 RATIO High 10-20 [facility] Comment on above: Performed By: #### L 501.2300, L503.7505, L500.4050 ####[facility] [address] [place], [address] Calcium [Mass/Vol] 8.8 mg/dL Normal 7.6-11.0 [facility] Comment on above: Performed By: #### L 501.2300, L503.7505, L500.4050 ####[facility] [address] [place], [address] Chloride [Moles/Vol] 100 mmol/L Normal 98-108 [facility] Comment on above: Performed By: #### L 501.2300, L503.7505, L500.4050 ####[facility] [address] [place], [address] CO2 [Moles/Vol] 27.9 mmol/L Normal 21.0-32.0 [facility] Comment on above: Performed By: #### L 501.2300, L503.7505, L500.4050 ####[facility] [address] [place], [address] Creatinine [Mass/Vol] 2.52 mg/dL High 0.70-1.20 [facility] Comment on above: Performed By: #### L 501.2300, L503.7505, L500.4050 ####[facility] [address] [place], [address] ECRCL 22.79 ml/min Low 50-250 [facility] Comment on above: Performed By: #### L 501.2300, L503.7505, L500.4050 ####[facility] [address] [place], [address] GAP 10 Normal 5-15 [facility] Comment on above: Performed By: #### L 501.2300, L503.7505, L500.4050 ####[facility] [address] [place], [address] GFR/1.73 sq M.predicted among non-blacks MDRD (S/P/Bld) [Vol rate/Area] 25 mL/min/{1.73_m2} Low >60 [facility] Comment on above: Result Comment: mL/m in/1.73m2 CKD-EPI Creatinine Equation (2020) Performed By: #### L 501.2300, L503.7505, L500.4050 ####[facility] [address] [place], [address] Globulin (S) [Mass/Vol] 3.5 g/dL Normal 2.2-4.2 [facility] Comment on above: Performed By: #### L 501.2300, L503.7505, L500.4050 ####[facility] [address] [place], [address] Glucose [Mass/Vol] 102 mg/dL High 70-99 [facility] Comment on above: Performed By: #### L 501.2300, L503.7505, L500.4050 ####[facility] [address] [place], [address] Potassium [Moles/Vol] 4.7 mmol/L Normal 3.3-5.1 [facility] Comment on above: Performed By: #### L 501.2300, L503.7505, L500.4050 ####[facility] [address] [place], [address] Sodium [Moles/Vol] 138 mmol/L Normal 133-145 [facility] Comment on above: Performed By: #### L 501.2300, L503.7505, L500.4050 ####[facility] [address] [place], [address] T PROT 6.8 g/dL Normal 5.9-8.4 [facility] Comment on above: Performed By: #### L 501.2300, L503.7505, L500.4050 ####[facility] [address] [place], [address] Urea nitrogen [Mass/Vol] 58 mg/dL High 4-19 [facility] Comment on above: Performed By: #### L 501.2300, L503.7505, L500.4050 ####[facility] [address] [place], [address] Consultation - Nephrologyon 04-06-2025 Consultation - Nephrology Normal [facility] Kidney and Bladderon 025 Kidney and Bladder Normal [facility] Natriuretic peptide.B prohor girish N-Terminal [Mass/volume] in Serum or PlasmaOrdered By: Nicola Madison on 04-06-2025 Natriuretic peptide.B prohormone N-Terminal [Mass/Vol] 4038 pg/mL High <1800 [facility] No Panel InformationOrdered By: Nicola Madison on 04-06-2025 19 U/L <38 [facility] Phosphoruson 04-06-2025 Phosphate [Mass/Vol] 5.4 mg/dL High 2.7-4.5 [facility] Comment on above: Performed By: #### L 501.2300, L503.7505, L500.4050 ####[facility] [address] [place], [address] Pro- Brain NATRIURETIC PEPTI Adrienne 04-06-2025 Natriuretic peptide B (Bld) [Mass/Vol] 4038 pg/mL High <=1800 [facility] Comment on above: Result Comment: Hear t Failure Unlikely: < 300 pg/mLHeart Failure Likely< 50 Years: > 450 pg/mL50-75 Years: > 900 pg/mL>75 Years: > 1800 pg/mL Performed By: #### L 501.2300, L503.7505, L500.4050 ####[facility] [address] [place], [address] Protein+Creatinine Ratio,Uri neon 04-06-2025 PROT:CRE RATIO 1660 mg/g CRE High 0-200 [facility] Comment on above: Performed By: #### L 501.0900 ####[facility] [address] [place], [place], [id number] UR CREAT 32.10 mg/dL Low 39.00-259. 00 [facility] Comment on above: Performed By: #### L 501.0900 ####[facility] [address] [place], [place], [id number] RESPIRATORY PANEL MOLECULARo n 04-06-2025 RP PANEL Normal [facility] Comment on above: Performed By: #### M 100.638 ####[facility] [address] [place], [place], [id number] Random urine creatinine kingsley urement (mass/volume)Ordered By: Renae Sarabia on 04-06-2025 Creatinine Unsp time (U) [Mass/Vol] 32.10 mg/dL Low 39.00-259. 00 [facility] Respiratory pathogens detect ion panel by molecular detection methodOrdered By: Nicola Madison on 04-06-2025 Respiratory pathogens DNA and RNA panel BRYAN+probe (Resp) [facility] Serum globulin measurementOr dered By: Nicola Madison on 04-06-2025 Globulin (S) [Mass/Vol] 3.5 g/dL 2.2-4.2 [facility] Serum or plasma alanine ortiz otransferase (ALT) measurementOrdered By: Nicola Madison on 04-06-2025 ALT [Catalytic activity/Vol] 13 U/L <47 [facility] Serum or plasma albumin kingsley urement (mass/volume)Ordered By: Nicola Madison on 04-06-2025 Albumin [Mass/Vol] 3.3 g/dL Low 3.4-4.8 [facility] Serum or plasma albumin/glob ulin mass ratioOrdered By: Nicoal Madison on 04-06-2025 Albumin/Globulin [Mass ratio] 0.9 {ratio} 0.9-2.4 [facility] Serum or plasma alkaline roosevelt sphatase measurementOrdered By: Nicola Madison on 04-06-2025 ALP [Catalytic activity/Vol] 70 U/L 40-129 [facility] Total proteinOrdered By: Jacob Madison on 04-06-2025 Protein [Mass/Vol] 6.8 g/dL 5.9-8.4 [facility] Urine protein measurement (m ass/volume)Ordered By: Renae Sarabia on 04-06-2025 Protein (U) [Mass/Vol] 53.3 mg/dL High 0.0-12.0 [facility] Comment on above: Performed By: #### L 501.0900 ####[facility] [address] [place], [place], [id number] Urine protein/creatinine mas s ratioOrdered By: Renae Sarabia on 04-06-2025 Protein/Creatinine (U) [Mass ratio] 1660 mg/g CRE High 0-200 [facility] 12 Lead EKGon 04-05-2025 12 Lead EKG Normal [facility] Absolute lymphocyte countOrd ered By: Ld Hayes on 04-05-2025 Lymphocytes Auto (Unsp spec) [#/Vol] 0.64 10*3/uL Low 0.83-4.51 [facility] Anion gap in Serum or Plasma Ordered By: Ld Hayes on 04-05-2025 Anion gap [Moles/Vol] 11 mmol/L 5-15 [facility] Assessment of wrist artery p atency prior to arterial punctureOrdered By: Nicola Madison on 04-05-2025 Arterial patency Wrist artery --pre arterial puncture Positive [facility] Automated lymphocyte count a s percentage of total leukocytesOrdered By: Ld Hayes on 04-05-2025 Lymphocytes/100 WBC Auto (Unsp spec) 7.3 % Low 19-41 [facility] BUN/creatinine ratioOrdered By: Ld Hayes on 04-05-2025 Urea nitrogen/Creatinine [Mass ratio] 23.2 mg/mg High 10-20 [facility] Basic Metabolic Profile (BMP )on 04-05-2025 BUN/CRE 23.2 RATIO High 10-20 [facility] Comment on above: Performed By: #### L 100.0100, L500.2500 ####[facility] [address] [place], [place], [id number] Calcium [Mass/Vol] 8.8 mg/dL Normal 7.6-11.0 [facility] Comment on above: Performed By: #### L 100.0100, L500.2500 ####[facility] [address] [place], [address] Chloride [Moles/Vol] 97 mmol/L Low 98-108 [facility] Comment on above: Performed By: #### L 100.0100, L500.2500 ####[facility] [address] [place], [address] CO2 [Moles/Vol] 26.7 mmol/L Normal 21.0-32.0 [facility] Comment on above: Performed By: #### L 100.0100, L500.2500 ####[facility] [address] [place], [address] Creatinine [Mass/Vol] 2.57 mg/dL High 0.70-1.20 [facility] Comment on above: Performed By: #### L 100.0100, L500.2500 ####[facility] [address] [place], [address] ECRCL 22.62 ml/min Low 50-250 [facility] Comment on above: Performed By: #### L 100.0100, L500.2500 ####[facility] [address] [place], [address] GAP 11 Normal 5-15 [facility] Comment on above: Performed By: #### L 100.0100, L500.2500 ####[facility] [address] [place], [address] GFR/1.73 sq M.predicted among non-blacks MDRD (S/P/Bld) [Vol rate/Area] 25 mL/min/{1.73_m2} Low >60 [facility] Comment on above: Result Comment: mL/m in/1.73m2 CKD-EPI Creatinine Equation (2020) Performed By: #### L 100.0100, L500.2500 ####[facility] [address] [place], [address] Glucose [Mass/Vol] 164 mg/dL High 70-99 [facility] Comment on above: Performed By: #### L 100.0100, L500.2500 ####[facility] [address] [place], [address] Potassium [Moles/Vol] 5.8 mmol/L High 3.3-5.1 [facility] Comment on above: Result Comment: Hemo lysis present, Results??could be affected.?? Performed By: #### L 100.0100, L500.2500 ####[facility] [address] [place], [address] Sodium [Moles/Vol] 134 mmol/L Normal 133-145 [facility] Comment on above: Performed By: #### L 100.0100, L500.2500 ####[facility] [address] [place], [address] Urea nitrogen [Mass/Vol] 60 mg/dL High 4-19 [facility] Comment on above: Performed By: #### L 100.0100, L500.2500 ####[facility] [address] [place], [address] Basophil percentageOrdered B y: Dl Le on 04-05-2025 Basophils/100 WBC (Bld) 0.6 % 0-1 [facility] Bedside Glucoseon 04-05-2025 FINGERSTICK GLU 76 mg/dL Normal 74-106 [facility] Comment on above: Result Comment: KODY GEMENT OF PATIENT CARE PER NURSING PROTOCOL Performed By: #### L 501.080 ####[facility] [address] [place], [address] FINGERSTICK GLU 147 mg/dL High 74-106 [facility] Comment on above: Result Comment: KODY GEMENT OF PATIENT CARE PER NURSING PROTOCOL Performed By: #### L 501.080 ####[facility] [address] [place], [address] Bilirubin Test strip Ql (U)O rdered By: Nicola Madison on 04-05-2025 Bilirubin Ql (U) Negative Negative [facility] by [facility] EMILIA TEST Positive Normal [facility] Comment on above: Performed By: #### L 9000.0800 ####[facility] [address] [place], [address] Base excess Calc (Bld) [Moles/Vol] 7 mmol/L High -2 to +2 [facility] Comment on above: Performed By: #### L 9000.0800 ####[facility] [address] [place], [address] Blood Gas Type ART Normal [facility] Comment on above: Performed By: #### L 9000.0800 ####[facility] [address] [place], [address] CO2 [Moles/Vol] 34 mmol/L Normal [facility] Comment on above: Performed By: #### L 9000.0800 ####[facility] [address] [place], [address] FI02 6.0 Normal [facility] Comment on above: Performed By: #### L 9000.0800 ####[facility] [address] [place], [address] HCO3 (Bld) [Moles/Vol] 32.4 mmol/L High 22-26 [facility] Comment on above: Performed By: #### L 9000.0800 ####[facility] [address] [place], [address] Mode Not entered Normal [facility] Comment on above: Performed By: #### L 9000.0800 ####[facility] [address] [place], [address] O2 Delivery Dev Cannula Normal [facility] Comment on above: Performed By: #### L 9000.0800 ####[facility] [address] [place], [address] pCO2 57.1 mmHg High 35-45 [facility] Comment on above: Performed By: #### L 9000.0800 ####[facility] [address] [place], [address] pH (Bld) 7.36 [pH] Normal 7.35-7.45 [facility] Comment on above: Performed By: #### L 9000.0800 ####[facility] [address] [place], [address] PO2 71 mmHG Low 75-100 [facility] Comment on above: Performed By: #### L 9000.0800 ####[facility] [address] [place], [address] SITE R Radial Normal [facility] Comment on above: Performed By: #### L 9000.0800 ####[facility] [address] [place], [address] SO2 93 Low 95-99 [facility] Comment on above: Performed By: #### L 9000.0800 ####[facility] [address] [place], [address] Blood base excess determinat ionOrdered By: Nicola Madison on 04-05-2025 Base excess Calc (BldV) [Moles/Vol] 7 mmol/L High -2-2 [facility] Blood bicarbonate measuremen tOrdered By: Nicola Madison on 04-05-2025 HCO3 (Bld) [Moles/Vol] 32.4 mmol/L High 22-26 [facility] CBC W/Diff, Automatedon 03-20 Absolute Lymph 0.64 X10 3/uL Low 0.83-4.51 [facility] Comment on above: Performed By: #### L 100.0100, L500.2500 ####[facility] [address] [place], [address] Absolute Neut 7.0 X10 3/uL Normal 2.0-7.7 [facility] Comment on above: Performed By: #### L 100.0100, L500.2500 ####[facility] [address] [place], [address] Basophils/100 WBC (Bld) 0.6 % Normal 0-1 [facility] Comment on above: Performed By: #### L 100.0100, L500.2500 ####[facility] [address] [place], [address] Eosinophils/100 WBC (Bld) 1.0 % Normal 0-5 [facility] Comment on above: Performed By: #### L 100.0100, L500.2500 ####[facility] [address] [place], [address] Erythrocyte distribution width (RBC) [Ratio] 17.1 % High 11.6-14.6 [facility] Comment on above: Performed By: #### L 100.0100, L500.2500 ####[facility] [address] [place], [address] Hematocrit (Bld) [Volume fraction] 29.0 % Low 40-54 [facility] Comment on above: Performed By: #### L 100.0100, L500.2500 ####[facility] [address] [place], [address] Hemoglobin (Bld) [Mass/Vol] 8.9 g/dL Low 13.0-16.5 [facility] Comment on above: Performed By: #### L 100.0100, L500.2500 ####[facility] [address] [place], [address] IG% 0.700 Normal 0.0-0.9 [facility] Comment on above: Result Comment: IG% - Immature Granulocytes (promyelocytes, myelocytes andmetamyelocytes) > 1% indicates that a LEFT SHIFT is Present. Performed By: #### L 100.0100, L500.2500 ####[facility] [address] [place], [address] Lymphocytes/100 WBC (Bld) 7.3 % Low 19-41 [facility] Comment on above: Performed By: #### L 100.0100, L500.2500 ####[facility] [address] [place], [address] MCH (RBC) [Entitic mass] 27.2 pg Normal 27.0-32.0 [facility] Comment on above: Performed By: #### L 100.0100, L500.2500 ####[facility] [address] [place], [address] MCHC (RBC) [Mass/Vol] 30.7 g/dL Low 32-36 [facility] Comment on above: Performed By: #### L 100.0100, L500.2500 ####[facility] [address] [place], [address] MCV (RBC) [Entitic vol] 88.7 fL Normal 80-94 [facility] Comment on above: Performed By: #### L 100.0100, L500.2500 ####[facility] [address] [place], [address] Monocytes/100 WBC (Bld) 10.7 % High 0-10 [facility] Comment on above: Performed By: #### L 100.0100, L500.2500 ####[facility] [address] [place], [address] Neutrophils/100 WBC (Bld) 79.7 % High 47-70 [facility] Comment on above: Performed By: #### L 100.0100, L500.2500 ####[facility] [address] [place], [address] Nucleated RBC (Bld) [#/Vol] 0.2 10*3/uL Normal 0-5 [facility] Comment on above: Performed By: #### L 100.0100, L500.2500 ####[facility] [address] [place], [address] Platelet mean volume (Bld) [Entitic vol] 11.1 fL Normal 6.2-12.0 [facility] Comment on above: Performed By: #### L 100.0100, L500.2500 ####[facility] [address] [place], [address] Platelets (Bld) [#/Vol] 226 10*3/uL Normal 150-450 [facility] Comment on above: Performed By: #### L 100.0100, L500.2500 ####[facility] [address] [place], [address] RBC (Bld) [#/Vol] 3.27 10*6/uL Low 4.6-6.2 [facility] Comment on above: Performed By: #### L 100.0100, L500.2500 ####[facility] [address] [place], [address] RDW SD 55.5 fl High 35.1-43.9 [facility] Comment on above: Performed By: #### L 100.0100, L500.2500 ####[facility] [address] [place], [address] WBC (Bld) [#/Vol] 8.7 10*3/uL Normal 4.4-11.0 [facility] Comment on above: Performed By: #### L 100.0100, L500.2500 ####[facility] [address] [place], [address] Carbon dioxide, total [Moles /volume] in Central venous bloodOrdered By: Ld Hayes on 04-05-2025 CO2 [Moles/Vol] 26.7 mmol/L 21.0-32.0 [facility] Chest PA and Lateralon 04-05 Chest PA and Lateral Normal [facility] Chloride assayOrdered By: Sky Hayes on 04-05-2025 Chloride [Moles/Vol] 97 mmol/L Low 98-108 [facility] Emergency Department Summary on 04-05-2025 Emergency Department Summary Normal [facility] Eosinophil percentageOrdered By: Ld Hayes on 04-05-2025 Eosinophils/100 WBC (Bld) 1.0 % 0-5 [facility] Erythrocyte distribution wid th ratioOrdered By: Ld Hayes on 04-05-2025 Erythrocyte distribution width (RBC) [Ratio] 17.1 % High 11.6-14.6 [facility] Erythrocyte distribution wid th standard deviationOrdered By: Ld Hayes on 04-05-2025 Erythrocyte distribution width (RBC) [Ratio] 55.5 fl High 35.1-43.9 [facility] Glomerular filtration rate ( GFR) estimation/1.73 sq m using serum, plasma, or whole bOrdered By: Ld Hayes on 04-05-2025 GFR/1.73 sq M.predicted among non-blacks MDRD (S/P/Bld) [Vol rate/Area] 25 mL/min/{1.73_m2} Low >60 [facility] Glucose measurement at bedsi deOrdered By: Ld Hayes on 04-05-2025 Glucose [Mass/Vol] 147 mg/dL High 74-106 [facility] H AND P Exam - Hospitaliston 04-05-2025 H&P Exam - Hospitalist Normal [facility] Hematocrit Auto (Bld) [Volum e fraction]Ordered By: Ld Hayes on 04-05-2025 Hematocrit (Bld) [Volume fraction] 29.0 % Low 40-54 [facility] Hemoglobin measurementOrdere d By: Ld Hayes on 04-05-2025 Hemoglobin (Bld) [Mass/Vol] 8.9 g/dL Low 13.0-16.5 [facility] Immature granulocytes/100 WB C Auto (Bld)Ordered By: Ld Hayes on 04-05-2025 Immature granulocytes/100 WBC (Bld) 0.700 % 0.0-0.9 [facility] Influenza virus A and B and SARS-CoV-2 (COVID-19) and Respiratory syncytial virus RNAOrdered By: Ld Hayes on 04-05-2025 SARS-CoV-2 (COVID-19) RNA BRYAN+probe Ql (Unsp spec) [facility] Ketones Test strip Ql (U)Ord ered By: Nicola Madison on 04-05-2025 Ketones Ql (U) Negative Negative [facility] L501.4021on 04-05-2025 Trop T High Sen 64 ng/L Invalid Interpretation Code <=22 [facility] Comment on above: Result Comment: Crit ical Result(s) Called [facility] at: 1805 by:RIVERA??Results read back by same. Performed By: #### L 501.4021 ####[facility] [address] [place], [address] M100.678on 04-05-2025 M100.678 SARS-CoV-2 (COVID 19 ) Negative INFLUENZA A Negative INFLUENZA B Negative RSV PCR Negative Normal [facility] Comment on above: Performed By: #### M 100.678 ####[facility] [address] [place], [address] MCV (mean corpuscular volume ) determinationOrdered By: Ld Hayes on 04-05-2025 MCV (RBC) [Entitic vol] 88.7 fL 80-94 [facility] Magnesiumon 04-05-2025 Magnesium [Mass/Vol] 2.5 mg/dL High 1.5-2.2 [facility] Comment on above: Performed By: #### L 501.5200, L501.9520 ####[facility] [address] [place], [place], [id number] Magnesium measurement (mass/ volume)Ordered By: Nicola Madison on 04-05-2025 Magnesium (Unsp spec) [Mass/Vol] 2.5 mg/dL High 1.5-2.2 [facility] Mean corpuscular hemoglobin (MCH) determinationOrdered By: Ld Hayes on 04-05-2025 MCH (RBC) [Entitic mass] 27.2 pg 27.0-32.0 [facility] Measurement, pHOrdered By: Alex Madison on 04-05-2025 pH (Unsp spec) 7.36 [pH] 7.35-7.45 [facility] Monocyte percentageOrdered B y: Ld Hayes on 04-05-2025 Monocytes/100 WBC (Bld) 10.7 % High 0-10 [facility] Mucus LM Ql (Urine sed)Order ed By: Nicola Madison on 04-05-2025 Mucus Ql (Urine sed) 0 SEEN /hpf [facility] Natriuretic peptide.B prohor girish N-Terminal [Mass/volume] in Serum or PlasmaOrdered By: Ld Hayes on 04-05-2025 Natriuretic peptide.B prohormone N-Terminal [Mass/Vol] 4003 pg/mL High <1800 [facility] Neutrophil percentageOrdered By: Ld Hayes on 04-05-2025 Neutrophils/100 WBC (Bld) 79.7 % High 47-70 [facility] Nitrite Test strip Ql (U)Ord ered By: Nicola Madison on 04-05-2025 Nitrite Ql (U) Negative Negative [facility] No Panel InformationOrdered By: Nicola Madison on 04-05-2025 ART [facility] R Radial [facility] Not entered [facility] Cannula [facility] Platelet countOrdered By: Sky Hayes on 04-05-2025 Platelets (Bld) [#/Vol] 226 10*3/uL 150-450 [facility] Potassium measurement (mass/ volume)Ordered By: Ld Hayes on 04-05-2025 Potassium (Unsp spec) [Mass/Vol] 5.8 mmol/L High 3.3-5.1 [facility] Pro- Brain NATRIURETIC PEPTI Adrienne 04-05-2025 Natriuretic peptide B (Bld) [Mass/Vol] 4003 pg/mL High <=1800 [facility] Comment on above: Result Comment: Hear t Failure Unlikely: < 300 pg/mLHeart Failure Likely< 50 Years: > 450 pg/mL50-75 Years: > 900 pg/mL>75 Years: > 1800 pg/mL Performed By: #### L 503.7505 ####[facility] [address] [place], [place], [id number] Protein Test strip Ql (U)Ord ered By: Nicola Madison on 04-05-2025 Protein Ql (U) 100 mg/dl High Negative [facility] RBC Auto (Bld) [#/Vol]Ordere d By: Ld Hayes on 04-05-2025 RBC (Bld) [#/Vol] 3.27 10*6/uL Low 4.6-6.2 [facility] Serum creatinine measurement (mass/volume)Ordered By: Ld Hayes on 04-05-2025 Creatinine [Mass/Vol] 2.57 mg/dL High 0.70-1.20 [facility] Serum glucose measurement (m ass/volume)Ordered By: Ld Hayes on 04-05-2025 Glucose [Mass/Vol] 164 mg/dL High 70-99 [facility] Serum or plasma calcium [place] urement (mass/volume)Ordered By: Ld Hayes on 04-05-2025 Calcium [Mass/Vol] 8.8 mg/dL 7.6-11.0 [facility] Serum or plasma urea nitroge n measurement (mass/volume)Ordered By: Ld Hayes on 04-05-2025 Urea nitrogen [Mass/Vol] 60 mg/dL High 4-19 [facility] Sodium levelOrdered By: Ld Hayes on 04-05-2025 Sodium [Moles/Vol] 134 mmol/L 133-145 [facility] Squamous epithelial cells de tection in urine sediment by light microscopyOrdered By: Nicola Madison on 04-05-2025 Epithelial cells.squamous LM Ql (Urine sed) 0-5 SEEN /hpf 0-5 [facility] TSH DL <= 0.005 mIU/L QnOrde red By: Nicola Madison on 04-05-2025 TSH Qn 3.830 uIU/mL 0.300-4.20 0 [facility] Thyroid Stim Hormone (TSH)on 04-05-2025 TSH 3.830 uIU/mL Normal 0.300-4.20 0 [facility] Comment on above: Performed By: #### L 501.5200, L501.9520 ####[facility] [address] [place], [place], [address] Total carbon dioxide measure mentOrdered By: Nicola Madison on 04-05-2025 CO2 [Moles/Vol] 34 mmol/L [facility] Troponin T HS 2 HRon 025 Trop T High Sen 62 ng/L Invalid Interpretation Code <=22 [facility] Comment on above: Result Comment: Crit ical Result(s) Called [facility] at:2002 by:RIVERA??Results read back by same. Performed By: #### L 499.0042 ####[facility] [address] [place], [place], [address] Troponin T HS 4 HRon 025 Trop T High Sen 60 ng/L Invalid Interpretation Code <=22 [facility] Comment on above: Result Comment: Crit ical Result(s) Called [facility] at: 2137 by:RIVERA??Results read back by same. Performed By: #### L 499.0043 ####[facility] [address] [place], [place], [address] Troponin T.cardiac [Mass/vol ume] in Serum or Plasma by High sensitivity methodOrdered By: Ld Hayes on 04-05-2025 Troponin T.cardiac High sensitivity method [Mass/Vol] 60 ng/L High <22 [facility] Troponin T.cardiac High sensitivity method [Mass/Vol] 62 ng/L High <22 [facility] Troponin T.cardiac High sensitivity method [Mass/Vol] 64 ng/L High <22 [facility] Urinalysis, Completeon 04-05 BACTERIA 2+ /hpf Normal None Seen [facility] Comment on above: Order Comment: CLEAN CATCH Performed By: #### L 400.0001 ####[facility] [address] [place], [address] EPI,SQUAMOUS 0-5 SEEN Normal 0-5 [facility] Comment on above: Order Comment: CLEAN CATCH Performed By: #### L 400.0001 ####[facility] [address] [place], [address] RBC 0-5 SEEN Normal 0-5 [facility] Comment on above: Order Comment: CLEAN CATCH Performed By: #### L 400.0001 ####[facility] [address] [place], [address] WBC 5-10 SEEN Normal 0-5 [facility] Comment on above: Order Comment: CLEAN CATCH Performed By: #### L 400.0001 ####[facility] [address] [place], [address] Mucus Ql (Urine sed) 0 SEEN Normal [facility] Comment on above: Order Comment: CLEAN CATCH Performed By: #### L 400.0001 ####[facility] [address] [place], [place], [address] Urine clarityOrdered By: Jacob Madison on 04-05-2025 Clarity (U) Clear Clear [facility] Urine color determinationOrd ered By: Nicola Madison on 04-05-2025 Color (U) Yellow Yellow [facility] Urine glucose detectionOrder ed By: Nicola Madison on 04-05-2025 Glucose Ql (U) Normal mg/dl Normal [facility] Urine leukocyte esterase det ection by dipstickOrdered By: Nicola Madison on 04-05-2025 Leukocyte esterase Test strip Ql (U) 500 /ul High Negative [facility] Urine pHOrdered By: Nicola stack on 04-05-2025 pH (U) 5.0 [pH] 5.0 - 8.0 [facility] Urine sediment bacteria coun t by microscopy (number/high power field)Ordered By: Nicola Madison on 04-05-2025 Bacteria LM.HPF (Urine sed) [#/Area] 2 /[HPF] None Seen [facility] Urine specific gravity measu rementOrdered By: Nicola Madison on 04-05-2025 Specific gravity (U) [Rel density] 1.015 1.002-1.03 0 [facility] Urine urobilinogen measureme ntOrdered By: Nicola Madison on 04-05-2025 Urobilinogen Ql (U) Normal mg/dl Normal [facility] White blood cell (WBC) count Ordered By: Ld Hayes on 04-05-2025 WBC (Bld) [#/Vol] 8.7 10*3/uL 4.4-11.0 [facility] White blood cell countOrdere d By: Nicola Madison on 04-05-2025 White blood cell count 5-10 SEEN /hpf 0-5 [facility] Absolute lymphocyte countOrd ered By: Leslie Arriaga on 04-02-2025 Lymphocytes Auto (Unsp spec) [#/Vol] 0.87 10*3/uL 0.83-4.51 [facility] Absolute neutrophil countOrd ered By: Leslie Arriaga on 04-02-2025 Neutrophils (Bld) [#/Vol] 6.9 10*3/uL 2.0-7.7 [facility] Anion gap in Serum or Plasma Ordered By: Leslie Arriaga on 04-02-2025 Anion gap [Moles/Vol] 10 mmol/L -15 [facility] Automated lymphocyte count a s percentage of total leukocytesOrdered By: Leslie Arriaga on 04-02-2025 Lymphocytes/100 WBC Auto (Unsp spec) 10.0 % Low 19- [facility] BUN/creatinine ratioOrdered By: Leslie Arriaga on 04-02-2025 Urea nitrogen/Creatinine [Mass ratio] 16.4 mg/mg - [facility] Basic Metabolic Profile (BMP )on 04-02-2025 BUN/CRE 16.4 RATIO Normal - [facility] Comment on above: Order Comment: Comme nts[facility] Performed By: #### L 503.1935, L100.0100, L500.2500 ####[facility] [address] [place], [address] Calcium [Mass/Vol] 9.2 mg/dL Normal 7.6-11.0 [facility] Comment on above: Order Comment: Comme nts: [facility] Performed By: #### L 503.7505, L100.0100, L500.2500 ####[facility] [address] [place], [address] Chloride [Moles/Vol] 99 mmol/L Normal 98-108 [facility] Comment on above: Order Comment: Comme nts: [facility] Performed By: #### L 503.7505, L100.0100, L500.2500 ####[facility] [address] [place], [address] CO2 [Moles/Vol] 27.8 mmol/L Normal 21.0-32.0 [facility] Comment on above: Order Comment: Comme nts: [facility] Performed By: #### L 503.7505, L100.0100, L500.2500 ####[facility] [address] [place], [address] Creatinine [Mass/Vol] 2.13 mg/dL High 0.70-1.20 [facility] Comment on above: Order Comment: Comme nts: [facility] Performed By: #### L 503.7505, L100.0100, L500.2500 ####[facility] [address] [place], [address] GAP 10 Normal 5-15 [facility] Comment on above: Order Comment: Comme nts: [facility] Performed By: #### L 503.7505, L100.0100, L500.2500 ####[facility] [address] [place], [address] GFR/1.73 sq M.predicted among non-blacks MDRD (S/P/Bld) [Vol rate/Area] 31 mL/min/{1.73_m2} Low >60 [facility] Comment on above: Order Comment: Comme nts: [facility] Result Comment: mL/m in/1.73m2 CKD-EPI Creatinine Equation (2020) Performed By: #### L 503.7505, L100.0100, L500.2500 ####[facility] [address] [place], [address] Glucose [Mass/Vol] 185 mg/dL High 70-99 [facility] Comment on above: Order Comment: Comme nts: [facility] Performed By: #### L 503.7505, L100.0100, L500.2500 ####[facility] [address] [place], [address] Potassium [Moles/Vol] 5.6 mmol/L High 3.3-5.1 [facility] Comment on above: Order Comment: Comme nts: [facility] Performed By: #### L 503.7505, L100.0100, L500.2500 ####[facility] [address] [place], [address] Sodium [Moles/Vol] 137 mmol/L Normal 133-145 [facility] Comment on above: Order Comment: Comme nts: [facility] Performed By: #### L 503.7505, L100.0100, L500.2500 ####[facility] [address] [place], [address] Urea nitrogen [Mass/Vol] 35 mg/dL High 4-19 [facility] Comment on above: Order Comment: Comme nts: [facility] Performed By: #### L 503.7505, L100.0100, L500.2500 ####[facility] [address] [place], [address] Basophil percentageOrdered B y: Leslie Arriaga on 04-02-2025 Basophils/100 WBC (Bld) 0.3 % 0-1 [facility] CBC W/Diff, Automatedon 03-20 Absolute Lymph 0.87 X10 3/uL Normal 0.83-4.51 [facility] Comment on above: Order Comment: Comme nts: Home Health to Draw Tomorrow Performed By: #### L 503.7505, L100.0100, L500.2500 ####[facility] [address] [place], [address] Absolute Neut 6.9 X10 3/uL Normal 2.0-7.7 [facility] Comment on above: Order Comment: Comme nts: Home Health to Draw Tomorrow Performed By: #### L 503.7505, L100.0100, L500.2500 ####[facility] [address] [place], [address] Basophils/100 WBC (Bld) 0.3 % Normal 0-1 [facility] Comment on above: Order Comment: Comme nts: Home Health to Draw Tomorrow Performed By: #### L 503.7505, L100.0100, L500.2500 ####[facility] [address] [place], [address] Eosinophils/100 WBC (Bld) 0.8 % Normal 0-5 [facility] Comment on above: Order Comment: Comme nts: Home Health to Draw Tomorrow Performed By: #### L 503.7505, L100.0100, L500.2500 ####[facility] [address] [place], [address] Erythrocyte distribution width (RBC) [Ratio] 17.1 % High 11.6-14.6 [facility] Comment on above: Order Comment: Comme nts: Home Health to Draw Tomorrow Performed By: #### L 503.7505, L100.0100, L500.2500 ####[facility] [address] [place], [address] Hematocrit (Bld) [Volume fraction] 30.6 % Low 40-54 [facility] Comment on above: Order Comment: Comme nts: Home Health to Draw Tomorrow Performed By: #### L 503.7505, L100.0100, L500.2500 ####[facility] [address] [place], [address] Hemoglobin (Bld) [Mass/Vol] 9.2 g/dL Low 13.0-16.5 [facility] Comment on above: Order Comment: Comme nts: Home Health to Draw Tomorrow Performed By: #### L 503.7505, L100.0100, L500.2500 ####[facility] [address] [place], [address] IG% 0.600 Normal 0.0-0.9 [facility] Comment on above: Order Comment: Comme nts: Home Health to Draw Tomorrow Result Comment: IG% - Immature Granulocytes (promyelocytes, myelocytes andmetamyelocytes) > 1% indicates that a LEFT SHIFT is Present. Performed By: #### L 503.7505, L100.0100, L500.2500 ####[facility] [address] [place], [address] Lymphocytes/100 WBC (Bld) 10.0 % Low 19-41 [facility] Comment on above: Order Comment: Comme nts: Home Health to Draw Tomorrow Performed By: #### L 503.7505, L100.0100, L500.2500 ####[facility] [address] [place], [address] MCH (RBC) [Entitic mass] 26.8 pg Low 27.0-32.0 [facility] Comment on above: Order Comment: Comme nts: Home Health to Draw Tomorrow Performed By: #### L 503.7505, L100.0100, L500.2500 ####[facility] [address] [place], [address] MCHC (RBC) [Mass/Vol] 30.1 g/dL Low 32-36 [facility] Comment on above: Order Comment: Comme nts: Home Health to Draw Tomorrow Performed By: #### L 503.7505, L100.0100, L500.2500 ####[facility] [address] [place], [address] MCV (RBC) [Entitic vol] 89.2 fL Normal 80-94 [facility] Comment on above: Order Comment: Comme nts: Home Health to Draw Tomorrow Performed By: #### L 503.7505, L100.0100, L500.2500 ####[facility] [address] [place], [address] Monocytes/100 WBC (Bld) 8.9 % Normal 0-10 [facility] Comment on above: Order Comment: Comme nts: Home Health to Draw Tomorrow Performed By: #### L 503.7505, L100.0100, L500.2500 ####[facility] [address] [place], [address] Neutrophils/100 WBC (Bld) 79.4 % High 47-70 [facility] Comment on above: Order Comment: Comme nts: Home Health to Draw Tomorrow Performed By: #### L 503.7505, L100.0100, L500.2500 ####[facility] [address] [place], [address] Nucleated RBC (Bld) [#/Vol] 0 10*3/uL Normal 0-5 [facility] Comment on above: Order Comment: Comme nts: Home Health to Draw Tomorrow Performed By: #### L 503.7505, L100.0100, L500.2500 ####[facility] [address] [place], [address] Platelet mean volume (Bld) [Entitic vol] 10.6 fL Normal 6.2-12.0 [facility] Comment on above: Order Comment: Comme nts: Home Health to Draw Tomorrow Performed By: #### L 503.7505, L100.0100, L500.2500 ####[facility] [address] [place], [address] Platelets (Bld) [#/Vol] 210 10*3/uL Normal 150-450 [facility] Comment on above: Order Comment: Comme nts: Home Health to Draw Tomorrow Performed By: #### L 503.7505, L100.0100, L500.2500 ####[facility] [address] [place], [address] RBC (Bld) [#/Vol] 3.43 10*6/uL Low 4.6-6.2 [facility] Comment on above: Order Comment: Comme nts: Home Health to Draw Tomorrow Performed By: #### L 503.7505, L100.0100, L500.2500 ####[facility] [address] [place], [address] RDW SD 55.3 fl High 35.1-43.9 [facility] Comment on above: Order Comment: Comme nts: Home Health to Draw Tomorrow Performed By: #### L 503.7505, L100.0100, L500.2500 ####[facility] [address] [place], [address] WBC (Bld) [#/Vol] 8.7 10*3/uL Normal 4.4-11.0 [facility] Comment on above: Order Comment: Comme nts: Home Health to Draw Tomorrow Performed By: #### L 503.7505, L100.0100, L500.2500 ####[facility] [address] [place], [address] Carbon dioxide, total [Moles /volume] in Central venous bloodOrdered By: Leslie Arriaga on 04-02-2025 CO2 [Moles/Vol] 27.8 mmol/L 21.0-32.0 [facility] Chloride assayOrdered By: Linsey Arriaga on 04-02-2025 Chloride [Moles/Vol] 99 mmol/L 98-108 [facility] Eosinophil percentageOrdered By: Leslie Arriaga on 04-02-2025 Eosinophils/100 WBC (Bld) 0.8 % 0-5 [facility] Erythrocyte distribution wid th ratioOrdered By: Leslie Arriaga on 04-02-2025 Erythrocyte distribution width (RBC) [Ratio] 17.1 % High 11.6-14.6 [facility] Erythrocyte distribution wid th standard deviationOrdered By: Leslie Arriaga on 04-02-2025 Erythrocyte distribution width (RBC) [Ratio] 55.3 fl High 35.1-43.9 [facility] Glomerular filtration rate ( GFR) estimation/1.73 sq m using serum, plasma, or whole bOrdered By: Leslie Arriaga on 04-02-2025 GFR/1.73 sq M.predicted among non-blacks MDRD (S/P/Bld) [Vol rate/Area] 31 mL/min/{1.73_m2} Low >60 [facility] Comment on above: mL/min/1.73m2 CKD-EP I Creatinine Equation (2020) Hematocrit Auto (Bld) [Volum e fraction]Ordered By: Leslie Arriaga on 04-02-2025 Hematocrit (Bld) [Volume fraction] 30.6 % Low 40-54 [facility] Hemoglobin measurementOrdere d By: Leslie Arriaga on 04-02-2025 Hemoglobin (Bld) [Mass/Vol] 9.2 g/dL Low 13.0-16.5 [facility] Immature granulocytes/100 WB C Auto (Bld)Ordered By: Leslie Arriaga on 04-02-2025 Immature granulocytes/100 WBC (Bld) 0.600 % 0.0-0.9 [facility] Comment on above: IG% - Immature Granu locytes (promyelocytes, myelocytes and metamyelocytes) > 1% indicates that a LEFT SHIFT is Present. MCV (mean corpuscular volume ) determinationOrdered By: Leslie Arriaga on 04-02-2025 MCV (RBC) [Entitic vol] 89.2 fL 80-94 [facility] Mean corpuscular hemoglobin (MCH) determinationOrdered By: Leslie Arriaga on 04-02-2025 MCH (RBC) [Entitic mass] 26.8 pg Low 27.0-32.0 [facility] Mean corpuscular hemoglobin concentration (MCHC) determinationOrdered By: Leslie Arriaga on 04-02-2025 MCHC (RBC) [Mass/Vol] 30.1 g/dL Low 32-36 [facility] Mean platelet volume determi nationOrdered By: Leslie Arriaga on 04-02-2025 Platelet mean volume (Bld) [Entitic vol] 10.6 fL 6.2-12.0 [facility] Monocyte percentageOrdered B y: Leslie Arriaga on 04-02-2025 Monocytes/100 WBC (Bld) 8.9 % 0-10 [facility] Natriuretic peptide.B prohor girish N-Terminal [Mass/volume] in Serum or PlasmaOrdered By: Leslie Arriaga on 04-02-2025 Natriuretic peptide.B prohormone N-Terminal [Mass/Vol] 2526 pg/mL High <1800 [facility] Comment on above: Heart Failure Unlike ly: < 300 pg/mLHeart Failure Likely< 50 Years: > 450 pg/mL50-75 Years: > 900 pg/mL>75 Years: > 1800 pg/mL Neutrophil percentageOrdered By: Leslie Arriaga on 04-02-2025 Neutrophils/100 WBC (Bld) 79.4 % High 47-70 [facility] Nucleated red blood cell per centageOrdered By: Leslie Arriaga on 04-02-2025 Nucleated RBC/100 WBC (Bld) [Ratio] 0 % 0-5 [facility] Platelet countOrdered By: Linsey Arriaga on 04-02-2025 Platelets (Bld) [#/Vol] 210 10*3/uL 150-450 [facility] Potassium measurement (mass/ volume)Ordered By: Leslie Arriaga on 04-02-2025 Potassium (Unsp spec) [Mass/Vol] 5.6 mmol/L High 3.3-5.1 [facility] Pro- Brain NATRIURETIC PEPTI Adrienne 04-02-2025 Natriuretic peptide B (Bld) [Mass/Vol] 2526 pg/mL High <=1800 [facility] Comment on above: Order Comment: Comme nts: Home Health to Draw Tomorrow Result Comment: Hear t Failure Unlikely: < 300 pg/mLHeart Failure Likely< 50 Years: > 450 pg/mL50-75 Years: > 900 pg/mL>75 Years: > 1800 pg/mL Performed By: #### L 503.7505, L100.0100, L500.2500 ####[facility] [address] [place], [address] RBC Auto (Bld) [#/Vol]Ordere d By: Leslie Arriaga on 04-02-2025 RBC (Bld) [#/Vol] 3.43 10*6/uL Low 4.6-6.2 [facility] Serum creatinine measurement (mass/volume)Ordered By: Leslie Arriaga on 04-02-2025 Creatinine [Mass/Vol] 2.13 mg/dL High 0.70-1.20 [facility] Serum glucose measurement (m ass/volume)Ordered By: Leslie Arriaga on 04-02-2025 Glucose [Mass/Vol] 185 mg/dL High 70-99 [facility] Serum or plasma calcium kings[place] urement (mass/volume)Ordered By: Leslie Arriaga on 04-02-2025 Calcium [Mass/Vol] 9.2 mg/dL 7.6-11.0 [facility] Serum or plasma urea nitroge n measurement (mass/volume)Ordered By: Leslie Arriaga on 04-02-2025 Urea nitrogen [Mass/Vol] 35 mg/dL High 4-19 [facility] Sodium levelOrdered By: Brian victoria Corina on 04-02-2025 Sodium [Moles/Vol] 137 mmol/L 133-145 [facility] White blood cell (WBC) count Ordered By: Leslie Corina on 04-02-2025 WBC (Bld) [#/Vol] 8.7 10*3/uL 4.4-11.0 [facility] Absolute lymphocyte countOrd ered By: Tonio Fajardo on 03-18-2025 Lymphocytes Auto (Unsp spec) [#/Vol] 0.88 10*3/uL 0.83-4.51 [facility] Absolute neutrophil countOrd ered By: Tonio Fajardo on 03-18-2025 Neutrophils (Bld) [#/Vol] 5.9 10*3/uL 2.0-7.7 [facility] Anion gap in Serum or Plasma Ordered By: Tonio Fajardo on 03-18-2025 Anion gap [Moles/Vol] 11 mmol/L 5- [facility] Automated lymphocyte count a s percentage of total leukocytesOrdered By: Tonio Fajardo on 03-18-2025 Lymphocytes/100 WBC Auto (Unsp spec) 11.2 % Low - [facility] BUN/creatinine ratioOrdered By: Tonio Fajardo on 03-18-2025 Urea nitrogen/Creatinine [Mass ratio] 14.8 mg/mg - [facility] Basic Metabolic Profile (BMP )on 03-18-2025 BUN/CRE 14.8 RATIO Normal 06-08 [facility] Comment on above: Performed By: #### L 500.2500, L100.0100 ####[facility] [address] [place], [address] Calcium [Mass/Vol] 9.5 mg/dL Normal 7.6-11.0 [facility] Comment on above: Performed By: #### L 500.2500, L100.0100 ####[facility] [address] [place], [address] Chloride [Moles/Vol] 99 mmol/L Normal 98-108 [facility] Comment on above: Performed By: #### L 500.2500, L100.0100 ####[facility] [address] [place], [address] CO2 [Moles/Vol] 26.7 mmol/L Normal 21.0-32.0 [facility] Comment on above: Performed By: #### L 500.2500, L100.0100 ####[facility] [address] [place], [address] Creatinine [Mass/Vol] 1.59 mg/dL High 0.70-1.20 [facility] Comment on above: Performed By: #### L 500.2500, L100.0100 ####[facility] [address] [place], [address] GAP 11 Normal 5-15 [facility] Comment on above: Performed By: #### L 500.2500, L100.0100 ####[facility] [address] [place], [address] GFR/1.73 sq M.predicted among non-blacks MDRD (S/P/Bld) [Vol rate/Area] 44 mL/min/{1.73_m2} Low >60 [facility] Comment on above: Result Comment: mL/m in/1.73m2 CKD-EPI Creatinine Equation (2020) Performed By: #### L 500.2500, L100.0100 ####[facility] [address] [place], [address] Glucose [Mass/Vol] 223 mg/dL High 70-99 [facility] Comment on above: Performed By: #### L 500.2500, L100.0100 ####[facility] [address] [place], [address] Potassium [Moles/Vol] 5.2 mmol/L High 3.3-5.1 [facility] Comment on above: Performed By: #### L 500.2500, L100.0100 ####[facility] [address] [place], [address] Sodium [Moles/Vol] 137 mmol/L Normal 133-145 [facility] Comment on above: Performed By: #### L 500.2500, L100.0100 ####[facility] [address] [place], [address] Urea nitrogen [Mass/Vol] 24 mg/dL High 4-19 [facility] Comment on above: Performed By: #### L 500.2500, L100.0100 ####[facility] [address] [place], [address] Basophil percentageOrdered B y: Tonio Fajardo on 03-18-2025 Basophils/100 WBC (Bld) 0.5 % 0-1 [facility] CBC W/Diff, Automatedon 02-19 0-2024 Absolute Lymph 0.88 X10 3/uL Normal 0.83-4.51 [facility] Comment on above: Performed By: #### L 500.2500, L100.0100 ####[facility] [address] [place], [address] Absolute Neut 5.9 X10 3/uL Normal 2.0-7.7 [facility] Comment on above: Performed By: #### L 500.2500, L100.0100 ####[facility] [address] [place], [address] Basophils/100 WBC (Bld) 0.5 % Normal 0-1 [facility] Comment on above: Performed By: #### L 500.2500, L100.0100 ####[facility] [address] [place], [address] Eosinophils/100 WBC (Bld) 3.1 % Normal 0-5 [facility] Comment on above: Performed By: #### L 500.2500, L100.0100 ####[facility] [address] [place], [address] Erythrocyte distribution width (RBC) [Ratio] 16.4 % High 11.6-14.6 [facility] Comment on above: Performed By: #### L 500.2500, L100.0100 ####[facility] [address] [place], [address] Hematocrit (Bld) [Volume fraction] 32.6 % Low 40-54 [facility] Comment on above: Performed By: #### L 500.2500, L100.0100 ####[facility] [address] [place], [address] Hemoglobin (Bld) [Mass/Vol] 9.7 g/dL Low 13.0-16.5 [facility] Comment on above: Performed By: #### L 500.2500, L100.0100 ####[facility] [address] [place], [address] IG% 1.100 High 0.0-0.9 [facility] Comment on above: Result Comment: IG% - Immature Granulocytes (promyelocytes, myelocytes andmetamyelocytes) > 1% indicates that a LEFT SHIFT is Present. Performed By: #### L 500.2500, L100.0100 ####[facility] [address] [place], [address] Lymphocytes/100 WBC (Bld) 11.2 % Low 19-41 [facility] Comment on above: Performed By: #### L 500.2500, L100.0100 ####[facility] [address] [place], [address] MCH (RBC) [Entitic mass] 26.8 pg Low 27.0-32.0 [facility] Comment on above: Performed By: #### L 500.2500, L100.0100 ####[facility] [address] [place], [address] MCHC (RBC) [Mass/Vol] 29.8 g/dL Low 32-36 [facility] Comment on above: Performed By: #### L 500.2500, L100.0100 ####[facility] [address] [place], [address] MCV (RBC) [Entitic vol] 90.1 fL Normal 80-94 [facility] Comment on above: Performed By: #### L 500.2500, L100.0100 ####[facility] [address] [place], [address] Monocytes/100 WBC (Bld) 9.4 % Normal 0-10 [facility] Comment on above: Performed By: #### L 500.2500, L100.0100 ####[facility] [address] [place], [address] Neutrophils/100 WBC (Bld) 74.7 % High 47-70 [facility] Comment on above: Performed By: #### L 500.2500, L100.0100 ####[facility] [address] [place], [address] Nucleated RBC (Bld) [#/Vol] 0 10*3/uL Normal 0-5 [facility] Comment on above: Performed By: #### L 500.2500, L100.0100 ####[facility] [address] [place], [address] Platelet mean volume (Bld) [Entitic vol] 10.4 fL Normal 6.2-12.0 [facility] Comment on above: Performed By: #### L 500.2500, L100.0100 ####[facility] [address] [place], [address] Platelets (Bld) [#/Vol] 252 10*3/uL Normal 150-450 [facility] Comment on above: Performed By: #### L 500.2500, L100.0100 ####[facility] [address] [place], [address] RBC (Bld) [#/Vol] 3.62 10*6/uL Low 4.6-6.2 [facility] Comment on above: Performed By: #### L 500.2500, L100.0100 ####[facility] [address] [place], [address] RDW SD 53.8 fl High 35.1-43.9 [facility] Comment on above: Performed By: #### L 500.2500, L100.0100 ####[facility] [address] [place], [address] WBC (Bld) [#/Vol] 7.9 10*3/uL Normal 4.4-11.0 [facility] Comment on above: Performed By: #### L 500.2500, L100.0100 ####[facility] [address] [place], [address] Carbon dioxide, total [Moles /volume] in Central venous bloodOrdered By: Tonio Fajardo on 03-18-2025 CO2 [Moles/Vol] 26.7 mmol/L 21.0-32.0 [facility] Chloride assayOrdered By: Min Fajardo on 03-18-2025 Chloride [Moles/Vol] 99 mmol/L 98-108 [facility] Eosinophil percentageOrdered By: Tonio Fajardo on 03-18-2025 Eosinophils/100 WBC (Bld) 3.1 % 0-5 [facility] Erythrocyte distribution wid th ratioOrdered By: Tonio Fajardo on 03-18-2025 Erythrocyte distribution width (RBC) [Ratio] 16.4 % High 11.6-14.6 [facility] Erythrocyte distribution wid th standard deviationOrdered By: Tonio Fajardo on 03-18-2025 Erythrocyte distribution width (RBC) [Ratio] 53.8 fl High 35.1-43.9 [facility] Glomerular filtration rate ( GFR) estimation/1.73 sq m using serum, plasma, or whole bOrdered By: Tonio Fajardo on 03-18-2025 GFR/1.73 sq M.predicted among non-blacks MDRD (S/P/Bld) [Vol rate/Area] 44 mL/min/{1.73_m2} Low >60 [facility] Comment on above: mL/min/1.73m2 CKD-EP I Creatinine Equation (2020) Hematocrit Auto (Bld) [Volum e fraction]Ordered By: Tonio Fajardo on 03-18-2025 Hematocrit (Bld) [Volume fraction] 32.6 % Low 40-54 [facility] Hemoglobin measurementOrdere d By: Tonio Fajardo on 03-18-2025 Hemoglobin (Bld) [Mass/Vol] 9.7 g/dL Low 13.0-16.5 [facility] Immature granulocytes/100 WB C Auto (Bld)Ordered By: Tonio Fajardo on 03-18-2025 Immature granulocytes/100 WBC (Bld) 1.100 % High 0.0-0.9 [facility] Comment on above: IG% - Immature Granu locytes (promyelocytes, myelocytes and metamyelocytes) > 1% indicates that a LEFT SHIFT is Present. MCV (mean corpuscular volume ) determinationOrdered By: Tonio Fajardo on 03-18-2025 MCV (RBC) [Entitic vol] 90.1 fL 80-94 [facility] Mean corpuscular hemoglobin (MCH) determinationOrdered By: Tonio Fajardo on 03-18-2025 MCH (RBC) [Entitic mass] 26.8 pg Low 27.0-32.0 [facility] Mean corpuscular hemoglobin concentration (MCHC) determinationOrdered By: Tonio Fajardo on 03-18-2025 MCHC (RBC) [Mass/Vol] 29.8 g/dL Low 32-36 [facility] Mean platelet volume determi nationOrdered By: Tonio Fajardo on 03-18-2025 Platelet mean volume (Bld) [Entitic vol] 10.4 fL 6.2-12.0 [facility] Monocyte percentageOrdered B y: Tonio Fajardo on 03-18-2025 Monocytes/100 WBC (Bld) 9.4 % 0-10 [facility] Neutrophil percentageOrdered By: Tonio Fajardo on 03-18-2025 Neutrophils/100 WBC (Bld) 74.7 % High 47-70 [facility] Nucleated red blood cell per centageOrdered By: Tonio Fajardo on 03-18-2025 Nucleated RBC/100 WBC (Bld) [Ratio] 0 % 0-5 [facility] Platelet countOrdered By: Min Fajardo on 03-18-2025 Platelets (Bld) [#/Vol] 252 10*3/uL 150-450 [facility] Potassium measurement (mass/ volume)Ordered By: Tonio Fajardo on 03-18-2025 Potassium (Unsp spec) [Mass/Vol] 5.2 mmol/L High 3.3-5.1 [facility] RBC Auto (Bld) [#/Vol]Ordere d By: Tonio aFjardo on 03-18-2025 RBC (Bld) [#/Vol] 3.62 10*6/uL Low 4.6-6.2 [facility] Serum creatinine measurement (mass/volume)Ordered By: Tonio Fajardo on 03-18-2025 Creatinine [Mass/Vol] 1.59 mg/dL High 0.70-1.20 [facility] Serum glucose measurement (m ass/volume)Ordered By: Tonio Fajardo on 03-18-2025 Glucose [Mass/Vol] 223 mg/dL High 70-99 [facility] Serum or plasma calcium kings[place] urement (mass/volume)Ordered By: Tonio Fajardo on 03-18-2025 Calcium [Mass/Vol] 9.5 mg/dL 7.6-11.0 [facility] Serum or plasma urea nitroge n measurement (mass/volume)Ordered By: Tonio Fajardo on 03-18-2025 Urea nitrogen [Mass/Vol] 24 mg/dL High 4-19 [facility] Sodium levelOrdered By: Tonio Fajardo on 03-18-2025 Sodium [Moles/Vol] 137 mmol/L 133-145 [facility] White blood cell (WBC) count Ordered By: Tonio Fajardo on 03-18-2025 WBC (Bld) [#/Vol] 7.9 10*3/uL 4.4-11.0 [facility] Cardiology Visit Reporton Cardiology Visit Report Normal [facility] Emergency Department Summary on 03-15-2025 Emergency Department Summary Normal [facility] Basic Metabolic Profile (BMP )on 03-11-2025 BUN Normal 4-19 [facility] Comment on above: Result Comment: Canc elled via OM: Order cancelled - Patient discharged Performed By: #### L 500.2500, L100.0100 ####[facility] [address] [place], [address] BUN/CRE Normal 10-20 [facility] Comment on above: Result Comment: Canc elled via OM: Order cancelled - Patient discharged Performed By: #### L 500.2500, L100.0100 ####[facility] [address] [place], [address] Calcium Normal 7.6-11.0 [facility] Comment on above: Result Comment: Canc elled via OM: Order cancelled - Patient discharged Performed By: #### L 500.2500, L100.0100 ####[facility] [address] [place], [address] CL Normal 98-108 [facility] Comment on above: Result Comment: Canc elled via OM: Order cancelled - Patient discharged Performed By: #### L 500.2500, L100.0100 ####[facility] [address] [place], [address] CO2 Normal 21.0-32.0 [facility] Comment on above: Result Comment: Canc elled via OM: Order cancelled - Patient discharged Performed By: #### L 500.2500, L100.0100 ####[facility] [address] [place], [address] CREAT,SERUM Normal 0.70-1.20 [facility] Comment on above: Result Comment: Canc elled via OM: Order cancelled - Patient discharged Performed By: #### L 500.2500, L100.0100 ####[facility] [address] [place], [address] eGFR Normal >60 [facility] Comment on above: Result Comment: Canc elled via OM: Order cancelled - Patient discharged Performed By: #### L 500.2500, L100.0100 ####[facility] [address] [place], [address] GAP Normal 5-15 [facility] Comment on above: Result Comment: Canc elled via OM: Order cancelled - Patient discharged Performed By: #### L 500.2500, L100.0100 ####[facility] [address] [place], [address] GLU Normal 70-99 [facility] Comment on above: Result Comment: Canc elled via OM: Order cancelled - Patient discharged Performed By: #### L 500.2500, L100.0100 ####[facility] [address] [place], [address] Potassium Normal 3.3-5.1 [facility] Comment on above: Result Comment: Canc elled via OM: Order cancelled - Patient discharged Performed By: #### L 500.2500, L100.0100 ####[facility] [address] [place], [address] Basic Metabolic Profile (BMP) Normal 133-145 [facility] Comment on above: Result Comment: Canc elled via OM: Order cancelled - Patient discharged Performed By: #### L 500.2500, L100.0100 ####[facility] [address] [place], [address] CBC W/Diff, Automatedon 07-2 Absolute Neut Normal 2.0-7.7 [facility] Comment on above: Result Comment: Canc elled via OM: Order cancelled - Patient discharged Performed By: #### L 500.2500, L100.0100 ####[facility] [address] [place], [address] HCT Normal 40-54 [facility] Comment on above: Result Comment: Canc elled via OM: Order cancelled - Patient discharged Performed By: #### L 500.2500, L100.0100 ####[facility] [address] [place], [address] HGB Normal 13.0-16.5 [facility] Comment on above: Result Comment: Canc elled via OM: Order cancelled - Patient discharged Performed By: #### L 500.2500, L100.0100 ####[facility] [address] [place], [address] MCH Normal 27.0-32.0 [facility] Comment on above: Result Comment: Canc elled via OM: Order cancelled - Patient discharged Performed By: #### L 500.2500, L100.0100 ####[facility] [address] [place], [address] MCHC Normal 32-36 [facility] Comment on above: Result Comment: Canc elled via OM: Order cancelled - Patient discharged Performed By: #### L 500.2500, L100.0100 ####[facility] [address] [place], [address] MCV Normal 80-94 [facility] Comment on above: Result Comment: Canc elled via OM: Order cancelled - Patient discharged Performed By: #### L 500.2500, L100.0100 ####[facility] [address] [place], [address] NEUT% Normal 47-70 [facility] Comment on above: Result Comment: Canc elled via OM: Order cancelled - Patient discharged Performed By: #### L 500.2500, L100.0100 ####[facility] [address] [place], [address] PLT Normal 150-450 [facility] Comment on above: Result Comment: Canc elled via OM: Order cancelled - Patient discharged Performed By: #### L 500.2500, L100.0100 ####[facility] [address] [place], [address] RBC Normal 4.6-6.2 [facility] Comment on above: Result Comment: Canc elled via OM: Order cancelled - Patient discharged Performed By: #### L 500.2500, L100.0100 ####[facility] [address] [place], [address] RDW CV Normal 11.6-14.6 [facility] Comment on above: Result Comment: Canc elled via OM: Order cancelled - Patient discharged Performed By: #### L 500.2500, L100.0100 ####[facility] [address] [place], [address] RDW SD Normal 35.1-43.9 [facility] Comment on above: Result Comment: Canc elled via OM: Order cancelled - Patient discharged Performed By: #### L 500.2500, L100.0100 ####[facility] [address] [place], [address] WBC Normal 4.4-11.0 [facility] Comment on above: Result Comment: Canc elled via OM: Order cancelled - Patient discharged Performed By: #### L 500.2500, L100.0100 ####[facility] [address] [place], [address] Basic Metabolic Profile (BMP )on 03-10-2025 BUN Normal 4-19 [facility] Comment on above: Result Comment: Canc elled via OM: Order cancelled - Patient discharged Performed By: #### L 500.2500, L100.0100 ####[facility] [address] [place], [address] BUN/CRE Normal 10-20 [facility] Comment on above: Result Comment: Canc elled via OM: Order cancelled - Patient discharged Performed By: #### L 500.2500, L100.0100 ####[facility] [address] [place], [address] Calcium Normal 7.6-11.0 [facility] Comment on above: Result Comment: Canc elled via OM: Order cancelled - Patient discharged Performed By: #### L 500.2500, L100.0100 ####[facility] [address] [place], [address] CL Normal 98-108 [facility] Comment on above: Result Comment: Canc elled via OM: Order cancelled - Patient discharged Performed By: #### L 500.2500, L100.0100 ####[facility] [address] [place], [address] CO2 Normal 21.0-32.0 [facility] Comment on above: Result Comment: Canc elled via OM: Order cancelled - Patient discharged Performed By: #### L 500.2500, L100.0100 ####[facility] [address] [place], [address] CREAT,SERUM Normal 0.70-1.20 [facility] Comment on above: Result Comment: Canc elled via OM: Order cancelled - Patient discharged Performed By: #### L 500.2500, L100.0100 ####[facility] [address] [place], [address] eGFR Normal >60 [facility] Comment on above: Result Comment: Canc elled via OM: Order cancelled - Patient discharged Performed By: #### L 500.2500, L100.0100 ####[facility] [address] [place], [address] GAP Normal 5-15 [facility] Comment on above: Result Comment: Canc elled via OM: Order cancelled - Patient discharged Performed By: #### L 500.2500, L100.0100 ####[facility] [address] [place], [address] GLU Normal 70-99 [facility] Comment on above: Result Comment: Canc elled via OM: Order cancelled - Patient discharged Performed By: #### L 500.2500, L100.0100 ####[facility] [address] [place], [address] Potassium Normal 3.3-5.1 [facility] Comment on above: Result Comment: Canc elled via OM: Order cancelled - Patient discharged Performed By: #### L 500.2500, L100.0100 ####[facility] [address] [place], [address] Basic Metabolic Profile (BMP) Normal 133-145 [facility] Comment on above: Result Comment: Canc elled via OM: Order cancelled - Patient discharged Performed By: #### L 500.2500, L100.0100 ####[facility] [address] [place], [address] CBC W/Diff, Automatedon 07-2 -2024 Absolute Neut Normal 2.0-7.7 [facility] Comment on above: Result Comment: Canc elled via OM: Order cancelled - Patient discharged Performed By: #### L 500.2500, L100.0100 ####[facility] [address] [place], [address] HCT Normal 40-54 [facility] Comment on above: Result Comment: Canc elled via OM: Order cancelled - Patient discharged Performed By: #### L 500.2500, L100.0100 ####[facility] [address] [place], [address] HGB Normal 13.0-16.5 [facility] Comment on above: Result Comment: Canc elled via OM: Order cancelled - Patient discharged Performed By: #### L 500.2500, L100.0100 ####[facility] [address] [place], [address] MCH Normal 27.0-32.0 [facility] Comment on above: Result Comment: Canc elled via OM: Order cancelled - Patient discharged Performed By: #### L 500.2500, L100.0100 ####[facility] [address] [place], [address] MCHC Normal 32-36 [facility] Comment on above: Result Comment: Canc elled via OM: Order cancelled - Patient discharged Performed By: #### L 500.2500, L100.0100 ####[facility] [address] [place], [address] MCV Normal 80-94 [facility] Comment on above: Result Comment: Canc elled via OM: Order cancelled - Patient discharged Performed By: #### L 500.2500, L100.0100 ####[facility] [address] [place], [address] NEUT% Normal 47-70 [facility] Comment on above: Result Comment: Canc elled via OM: Order cancelled - Patient discharged Performed By: #### L 500.2500, L100.0100 ####[facility] [address] [place], [address] PLT Normal 150-450 [facility] Comment on above: Result Comment: Canc elled via OM: Order cancelled - Patient discharged Performed By: #### L 500.2500, L100.0100 ####[facility] [address] [place], [address] RBC Normal 4.6-6.2 [facility] Comment on above: Result Comment: Canc elled via OM: Order cancelled - Patient discharged Performed By: #### L 500.2500, L100.0100 ####[facility] [address] [place], [address] RDW CV Normal 11.6-14.6 [facility] Comment on above: Result Comment: Canc elled via OM: Order cancelled - Patient discharged Performed By: #### L 500.2500, L100.0100 ####[facility] [address] [place], [address] RDW SD Normal 35.1-43.9 [facility] Comment on above: Result Comment: Canc elled via OM: Order cancelled - Patient discharged Performed By: #### L 500.2500, L100.0100 ####[facility] [address] [place], [address] WBC Normal 4.4-11.0 [facility] Comment on above: Result Comment: Canc elled via OM: Order cancelled - Patient discharged Performed By: #### L 500.2500, L100.0100 ####[facility] [address] [place], [address] Absolute lymphocyte countOrd ered By: Deric Lantigua on 03-09-2025 Lymphocytes Auto (Unsp spec) [#/Vol] 0.53 10*3/uL Low 0.83-4.51 [facility] Absolute neutrophil countOrd ered By: Deric Lantigua on 03-09-2025 Neutrophils (Bld) [#/Vol] 4.0 10*3/uL 2.0-7.7 [facility] Anion gap in Serum or Plasma Ordered By: Deric Lantigua on 03-09-2025 Anion gap [Moles/Vol] 10 mmol/L 5-15 [facility] Automated lymphocyte count a s percentage of total leukocytesOrdered By: Deric Lantigua on 03-09-2025 Lymphocytes/100 WBC Auto (Unsp spec) 9.7 % Low 19-41 [facility] BUN/creatinine ratioOrdered By: Deric Lantigua on 03-09-2025 Urea nitrogen/Creatinine [Mass ratio] 20.8 mg/mg High 10-20 [facility] Basic Metabolic Profile (BMP )on 03-09-2025 BUN/CRE 20.8 RATIO High 10-20 [facility] Comment on above: Performed By: #### L 100.0100, L500.2500 ####[facility] [address] [place], [address] Calcium [Mass/Vol] 9.0 mg/dL Normal 7.6-11.0 [facility] Comment on above: Performed By: #### L 100.0100, L500.2500 ####[facility] [address] [place], [address] Chloride [Moles/Vol] 101 mmol/L Normal 98-108 [facility] Comment on above: Performed By: #### L 100.0100, L500.2500 ####[facility] [address] [place], [address] CO2 [Moles/Vol] 26.6 mmol/L Normal 21.0-32.0 [facility] Comment on above: Performed By: #### L 100.0100, L500.2500 ####[facility] [address] [place], [address] Creatinine [Mass/Vol] 2.41 mg/dL High 0.70-1.20 [facility] Comment on above: Performed By: #### L 100.0100, L500.2500 ####[facility] [address] [place], [address] ECRCL 24.14 ml/min Low 50-250 [facility] Comment on above: Performed By: #### L 100.0100, L500.2500 ####[facility] [address] [place], [address] GAP 10 Normal 5-15 [facility] Comment on above: Performed By: #### L 100.0100, L500.2500 ####[facility] [address] [place], [address] GFR/1.73 sq M.predicted among non-blacks MDRD (S/P/Bld) [Vol rate/Area] 26 mL/min/{1.73_m2} Low >60 [facility] Comment on above: Result Comment: mL/m in/1.73m2 CKD-EPI Creatinine Equation (2020) Performed By: #### L 100.0100, L500.2500 ####[facility] [address] [place], [address] Glucose [Mass/Vol] 118 mg/dL High 70-99 [facility] Comment on above: Performed By: #### L 100.0100, L500.2500 ####[facility] [address] [place], [address] Potassium [Moles/Vol] 4.3 mmol/L Normal 3.3-5.1 [facility] Comment on above: Performed By: #### L 100.0100, L500.2500 ####[facility] [address] [place], [address] Sodium [Moles/Vol] 138 mmol/L Normal 133-145 [facility] Comment on above: Performed By: #### L 100.0100, L500.2500 ####[facility] [address] [place], [address] Urea nitrogen [Mass/Vol] 50 mg/dL High 4-19 [facility] Comment on above: Performed By: #### L 100.0100, L500.2500 ####[facility] [address] [place], [address] Basophil percentageOrdered B y: Deric Lantigua on 03-09-2025 Basophils/100 WBC (Bld) 0.2 % 0-1 [facility] Bedside Glucoseon 03-09-2025 FINGERSTICK GLU 184 mg/dL High 74-106 [facility] Comment on above: Result Comment: KODY STRONG OF PATIENT CARE PER NURSING PROTOCOL Performed By: #### L 501.080 ####[facility] [address] [place], [address] FINGERSTICK GLU 112 mg/dL High 74-106 [facility] Comment on above: Result Comment: KODY STRONG OF PATIENT CARE PER NURSING PROTOCOL Performed By: #### L 501.080 ####[facility] [address] [place], [address] CBC W/Diff, Automatedon 07-2 -2024 Absolute Lymph 0.53 X10 3/uL Low 0.83-4.51 [facility] Comment on above: Performed By: #### L 100.0100, L500.2500 ####[facility] [address] [place], [address] Absolute Neut 4.0 X10 3/uL Normal 2.0-7.7 [facility] Comment on above: Performed By: #### L 100.0100, L500.2500 ####[facility] [address] [place], [address] Basophils/100 WBC (Bld) 0.2 % Normal 0-1 [facility] Comment on above: Performed By: #### L 100.0100, L500.2500 ####[facility] [address] [place], [address] Eosinophils/100 WBC (Bld) 4.8 % Normal 0-5 [facility] Comment on above: Performed By: #### L 100.0100, L500.2500 ####[facility] [address] [place], [address] Erythrocyte distribution width (RBC) [Ratio] 16.3 % High 11.6-14.6 [facility] Comment on above: Performed By: #### L 100.0100, L500.2500 ####[facility] [address] [place], [address] Hematocrit (Bld) [Volume fraction] 29.6 % Low 40-54 [facility] Comment on above: Performed By: #### L 100.0100, L500.2500 ####[facility] [address] [place], [address] Hemoglobin (Bld) [Mass/Vol] 9.3 g/dL Low 13.0-16.5 [facility] Comment on above: Performed By: #### L 100.0100, L500.2500 ####[facility] [address] [place], [address] IG% 0.600 Normal 0.0-0.9 [facility] Comment on above: Result Comment: IG% - Immature Granulocytes (promyelocytes, myelocytes andmetamyelocytes) > 1% indicates that a LEFT SHIFT is Present. Performed By: #### L 100.0100, L500.2500 ####[facility] [address] [place], [address] Lymphocytes/100 WBC (Bld) 9.7 % Low 19-41 [facility] Comment on above: Performed By: #### L 100.0100, L500.2500 ####[facility] [address] [place], [address] MCH (RBC) [Entitic mass] 27.5 pg Normal 27.0-32.0 [facility] Comment on above: Performed By: #### L 100.0100, L500.2500 ####[facility] [address] [place], [address] MCHC (RBC) [Mass/Vol] 31.4 g/dL Low 32-36 [facility] Comment on above: Performed By: #### L 100.0100, L500.2500 ####[facility] [address] [place], [address] MCV (RBC) [Entitic vol] 87.6 fL Normal 80-94 [facility] Comment on above: Performed By: #### L 100.0100, L500.2500 ####[facility] [address] [place], [address] Monocytes/100 WBC (Bld) 12.1 % High 0-10 [facility] Comment on above: Performed By: #### L 100.0100, L500.2500 ####[facility] [address] [place], [address] Neutrophils/100 WBC (Bld) 72.6 % High 47-70 [facility] Comment on above: Performed By: #### L 100.0100, L500.2500 ####[facility] [address] [place], [address] Nucleated RBC (Bld) [#/Vol] 0 10*3/uL Normal 0-5 [facility] Comment on above: Performed By: #### L 100.0100, L500.2500 ####[facility] [address] [place], [address] Platelet mean volume (Bld) [Entitic vol] 10.0 fL Normal 6.2-12.0 [facility] Comment on above: Performed By: #### L 100.0100, L500.2500 ####[facility] [address] [place], [address] Platelets (Bld) [#/Vol] 162 10*3/uL Normal 150-450 [facility] Comment on above: Performed By: #### L 100.0100, L500.2500 ####[facility] [address] [place], [address] RBC (Bld) [#/Vol] 3.38 10*6/uL Low 4.6-6.2 [facility] Comment on above: Performed By: #### L 100.0100, L500.2500 ####[facility] [address] [place], [address] RDW SD 51.8 fl High 35.1-43.9 [facility] Comment on above: Performed By: #### L 100.0100, L500.2500 ####[facility] [address] [place], [address] WBC (Bld) [#/Vol] 5.5 10*3/uL Normal 4.4-11.0 [facility] Comment on above: Performed By: #### L 100.0100, L500.2500 ####[facility] [address] [place], [address] Carbon dioxide, total [Moles /volume] in Central venous bloodOrdered By: Deric Lantigua on 03-09-2025 CO2 [Moles/Vol] 26.6 mmol/L 21.0-32.0 [facility] Chloride assayOrdered By: Silvia Lantigua on 03-09-2025 Chloride [Moles/Vol] 101 mmol/L 98-108 [facility] Discharge Instructionon 07-2 Discharge Instruction Normal [facility] Eosinophil percentageOrdered By: Deric Lantigua on 03-09-2025 Eosinophils/100 WBC (Bld) 4.8 % 0-5 [facility] Erythrocyte distribution wid th ratioOrdered By: Deric Lantigua on 03-09-2025 Erythrocyte distribution width (RBC) [Ratio] 16.3 % High 11.6-14.6 [facility] Erythrocyte distribution wid th standard deviationOrdered By: Deric Lantigua on 03-09-2025 Erythrocyte distribution width (RBC) [Ratio] 51.8 fl High 35.1-43.9 [facility] Glomerular filtration rate ( GFR) estimation/1.73 sq m using serum, plasma, or whole bOrdered By: Deric Lantigua on 03-09-2025 GFR/1.73 sq M.predicted among non-blacks MDRD (S/P/Bld) [Vol rate/Area] 26 mL/min/{1.73_m2} Low >60 [facility] Comment on above: mL/min/1.73m2 CKD-EP I Creatinine Equation (2020) Glucose measurement at bedsi deOrdered By: Deric Lantigua on 03-09-2025 Glucose [Mass/Vol] 184 mg/dL High 74-106 [facility] Comment on above: MANAGEMENT OF PATIEN T CARE PER NURSING PROTOCOL Hematocrit Auto (Bld) [Volum e fraction]Ordered By: Deric Lantigua on 03-09-2025 Hematocrit (Bld) [Volume fraction] 29.6 % Low 40-54 [facility] Hemoglobin measurementOrdere d By: Deric Lantigua on 03-09-2025 Hemoglobin (Bld) [Mass/Vol] 9.3 g/dL Low 13.0-16.5 [facility] Immature granulocytes/100 WB C Auto (Bld)Ordered By: Deric Lantigua on 03-09-2025 Immature granulocytes/100 WBC (Bld) 0.600 % 0.0-0.9 [facility] Comment on above: IG% - Immature Granu locytes (promyelocytes, myelocytes and metamyelocytes) > 1% indicates that a LEFT SHIFT is Present. MCV (mean corpuscular volume ) determinationOrdered By: Deric Lantigua on 03-09-2025 MCV (RBC) [Entitic vol] 87.6 fL 80-94 [facility] Mean corpuscular hemoglobin (MCH) determinationOrdered By: Deric Lantigua on 03-09-2025 MCH (RBC) [Entitic mass] 27.5 pg 27.0-32.0 [facility] Mean corpuscular hemoglobin concentration (MCHC) determinationOrdered By: Deric Lantigua on 03-09-2025 MCHC (RBC) [Mass/Vol] 31.4 g/dL Low 32-36 [facility] Mean platelet volume determi nationOrdered By: Deric Lantigua on 03-09-2025 Platelet mean volume (Bld) [Entitic vol] 10.0 fL 6.2-12.0 [facility] Monocyte percentageOrdered B y: Deric Lantigua on 03-09-2025 Monocytes/100 WBC (Bld) 12.1 % High 0-10 [facility] Neutrophil percentageOrdered By: Deric Lantigua on 03-09-2025 Neutrophils/100 WBC (Bld) 72.6 % High 47-70 [facility] Nucleated red blood cell per centageOrdered By: Deric Lantigua on 03-09-2025 Nucleated RBC/100 WBC (Bld) [Ratio] 0 % 0-5 [facility] Platelet countOrdered By: Silvia Lantigua on 03-09-2025 Platelets (Bld) [#/Vol] 162 10*3/uL 150-450 [facility] Potassium measurement (mass/ volume)Ordered By: Deric Lantigua on 03-09-2025 Potassium (Unsp spec) [Mass/Vol] 4.3 mmol/L 3.3-5.1 [facility] RBC Auto (Bld) [#/Vol]Ordere d By: Deric Lantigua on 03-09-2025 RBC (Bld) [#/Vol] 3.38 10*6/uL Low 4.6-6.2 [facility] Serum creatinine measurement (mass/volume)Ordered By: Deric Lantigua on 03-09-2025 Creatinine [Mass/Vol] 2.41 mg/dL High 0.70-1.20 [facility] Serum glucose measurement (m ass/volume)Ordered By: Deric Lantigua on 03-09-2025 Glucose [Mass/Vol] 118 mg/dL High 70-99 [facility] Serum or plasma calcium [place] urement (mass/volume)Ordered By: Deric Lantigua on 03-09-2025 Calcium [Mass/Vol] 9.0 mg/dL 7.6-11.0 [facility] Serum or plasma urea nitroge n measurement (mass/volume)Ordered By: Deric Lantigua on 03-09-2025 Urea nitrogen [Mass/Vol] 50 mg/dL High 4-19 [facility] Sodium levelOrdered By: Mikki Lantigua on 03-09-2025 Sodium [Moles/Vol] 138 mmol/L 133-145 [facility] White blood cell (WBC) count Ordered By: Deric Lantigua on 03-09-2025 WBC (Bld) [#/Vol] 5.5 10*3/uL 4.4-11.0 [facility] Basic Metabolic Profile (BMP )on 03-08-2025 BUN/CRE 19.9 RATIO Normal 10-20 [facility] Comment on above: Performed By: #### L 500.2500 ####[facility] [address] [place], [address] Calcium [Mass/Vol] 8.8 mg/dL Normal 7.6-11.0 [facility] Comment on above: Performed By: #### L 500.2500 ####[facility] [address] [place], [address] Chloride [Moles/Vol] 99 mmol/L Normal 98-108 [facility] Comment on above: Performed By: #### L 500.2500 ####[facility] [address] [place], [address] CO2 [Moles/Vol] 27.0 mmol/L Normal 21.0-32.0 [facility] Comment on above: Performed By: #### L 500.2500 ####[facility] [address] [place], [address] Creatinine [Mass/Vol] 3.11 mg/dL High 0.70-1.20 [facility] Comment on above: Performed By: #### L 500.2500 ####[facility] [address] [place], [address] ECRCL 17.10 ml/min Low 50-250 [facility] Comment on above: Performed By: #### L 500.2500 ####[facility] [address] [place], [address] GAP 10 Normal 5-15 [facility] Comment on above: Performed By: #### L 500.2500 ####[facility] [address] [place], [address] GFR/1.73 sq M.predicted among non-blacks MDRD (S/P/Bld) [Vol rate/Area] 19 mL/min/{1.73_m2} Low >60 [facility] Comment on above: Result Comment: mL/m in/1.73m2 CKD-EPI Creatinine Equation (2020) Performed By: #### L 500.2500 ####[facility] [address] [place], [address] Glucose [Mass/Vol] 127 mg/dL High 70-99 [facility] Comment on above: Performed By: #### L 500.2500 ####[facility] [address] [place], [address] Potassium [Moles/Vol] 5.3 mmol/L High 3.3-5.1 [facility] Comment on above: Performed By: #### L 500.2500 ####[facility] [address] [place], [address] Sodium [Moles/Vol] 135 mmol/L Normal 133-145 [facility] Comment on above: Performed By: #### L 500.2500 ####[facility] [address] [place], [address] Urea nitrogen [Mass/Vol] 62 mg/dL High 4-19 [facility] Comment on above: Performed By: #### L 500.2500 ####[facility] [address] [place], [address] Bedside Glucoseon 03-08-2025 FINGERSTICK GLU 132 mg/dL High 74-106 [facility] Comment on above: Result Comment: KODY GEMENT OF PATIENT CARE PER NURSING PROTOCOL Performed By: #### L 501.080 ####[facility] [address] [place], [address] FINGERSTICK GLU 142 mg/dL High 74-106 [facility] Comment on above: Result Comment: KODY GEMENT OF PATIENT CARE PER NURSING PROTOCOL Performed By: #### L 501.080 ####[facility] [address] [place], [address] FINGERSTICK GLU 128 mg/dL High 74-106 [facility] Comment on above: Result Comment: KODY GEMENT OF PATIENT CARE PER NURSING PROTOCOL Performed By: #### L 501.080 ####[facility] [address] [place], [address] FINGERSTICK GLU 122 mg/dL High 74-106 [facility] Comment on above: Result Comment: KODY GEMENT OF PATIENT CARE PER NURSING PROTOCOL Performed By: #### L 501.080 ####[facility] [address] [place], [address] Magnesiumon 03-08-2025 Magnesium [Mass/Vol] 2.3 mg/dL High 1.5-2.2 [facility] Comment on above: Performed By: #### L 501.5200 ####[facility] [address] [place], [address] Magnesium measurement (mass/ volume)Ordered By: Nicola Madison on 03-08-2025 Magnesium (Unsp spec) [Mass/Vol] 2.3 mg/dL High 1.5-2.2 [facility] Potassiumon 03-08-2025 Potassium [Moles/Vol] 5.5 mmol/L High 3.3-5.1 [facility] Comment on above: Performed By: #### L 501.5600 ####[facility] [address] [place], [address] Basic Metabolic Profile (BMP )on 03-07-2025 BUN/CRE 18.2 RATIO Normal 10-20 [facility] Comment on above: Performed By: #### L 500.2500 ####[facility] [address] [place], [address] Calcium [Mass/Vol] 8.7 mg/dL Normal 7.6-11.0 [facility] Comment on above: Performed By: #### L 500.2500 ####[facility] [address] [place], [address] Chloride [Moles/Vol] 97 mmol/L Low 98-108 [facility] Comment on above: Performed By: #### L 500.2500 ####[facility] [address] [place], [address] CO2 [Moles/Vol] 26.3 mmol/L Normal 21.0-32.0 [facility] Comment on above: Performed By: #### L 500.2500 ####[facility] [address] [place], [address] Creatinine [Mass/Vol] 3.09 mg/dL High 0.70-1.20 [facility] Comment on above: Performed By: #### L 500.2500 ####[facility] [address] [place], [address] ECRCL 17.21 ml/min Low 50-250 [facility] Comment on above: Performed By: #### L 500.2500 ####[facility] [address] [place], [address] GAP 10 Normal 5-15 [facility] Comment on above: Performed By: #### L 500.2500 ####[facility] [address] [place], [address] GFR/1.73 sq M.predicted among non-blacks MDRD (S/P/Bld) [Vol rate/Area] 20 mL/min/{1.73_m2} Low >60 [facility] Comment on above: Result Comment: mL/m in/1.73m2 CKD-EPI Creatinine Equation (2020) Performed By: #### L 500.2500 ####[facility] [address] [place], [address] Glucose [Mass/Vol] 126 mg/dL High 70-99 [facility] Comment on above: Performed By: #### L 500.2500 ####[facility] [address] [place], [address] Potassium [Moles/Vol] 4.8 mmol/L Normal 3.3-5.1 [facility] Comment on above: Performed By: #### L 500.2500 ####[facility] [address] [place], [address] Sodium [Moles/Vol] 134 mmol/L Normal 133-145 [facility] Comment on above: Performed By: #### L 500.2500 ####[facility] [address] [place], [address] Urea nitrogen [Mass/Vol] 56 mg/dL High 4-19 [facility] Comment on above: Performed By: #### L 500.2500 ####[facility] [address] [place], [address] Bedside Glucoseon 03-07-2025 FINGERSTICK GLU 151 mg/dL High 74-106 [facility] Comment on above: Result Comment: KDOY GEMENT OF PATIENT CARE PER NURSING PROTOCOL Performed By: #### L 501.080 ####[facility] [address] [place], [address] FINGERSTICK GLU 191 mg/dL High 74-106 [facility] Comment on above: Result Comment: KODY GEMENT OF PATIENT CARE PER NURSING PROTOCOL Performed By: #### L 501.080 ####[facility] [address] [place], [address] FINGERSTICK GLU 184 mg/dL High 74-106 [facility] Comment on above: Result Comment: KODY GEMENT OF PATIENT CARE PER NURSING PROTOCOL Performed By: #### L 501.080 ####[facility] [address] [place], [address] FINGERSTICK GLU 127 mg/dL High 74-106 [facility] Comment on above: Result Comment: KODY GEMENT OF PATIENT CARE PER NURSING PROTOCOL Performed By: #### L 501.080 ####[facility] [address] [place], [address] Urine Cultureon 03-07-2025 [facility] Comments: On UA samp le of 03/04 Culture exhibits no growth. Normal [facility] Comment on above: Performed By: #### M 100.2200 ####[facility] [address] [place], [address] Basic Metabolic Profile (BMP )on 03-06-2025 BUN/CRE 17.8 RATIO Normal 10-20 [facility] Comment on above: Performed By: #### L 500.2500, L501.2300 ####[facility] [address] [place], [address] Calcium [Mass/Vol] 9.1 mg/dL Normal 7.6-11.0 [facility] Comment on above: Performed By: #### L 500.2500, L501.2300 ####[facility] [address] [place], [address] Chloride [Moles/Vol] 99 mmol/L Normal 98-108 [facility] Comment on above: Performed By: #### L 500.2500, L501.2300 ####[facility] [address] [place], [address] CO2 [Moles/Vol] 31.2 mmol/L Normal 21.0-32.0 [facility] Comment on above: Performed By: #### L 500.2500, L501.2300 ####[facility] [address] [place], [address] Creatinine [Mass/Vol] 2.23 mg/dL High 0.70-1.20 [facility] Comment on above: Performed By: #### L 500.2500, L501.2300 ####[facility] [address] [place], [address] ECRCL 23.84 ml/min Low 50-250 [facility] Comment on above: Performed By: #### L 500.2500, L501.2300 ####[facility] [address] [place], [address] GAP 8 Normal 5-15 [facility] Comment on above: Performed By: #### L 500.2500, L501.2300 ####[facility] [address] [place], [address] GFR/1.73 sq M.predicted among non-blacks MDRD (S/P/Bld) [Vol rate/Area] 29 mL/min/{1.73_m2} Low >60 [facility] Comment on above: Result Comment: mL/m in/1.73m2 CKD-EPI Creatinine Equation (2020) Performed By: #### L 500.2500, L501.2300 ####[facility] [address] [place], [address] Glucose [Mass/Vol] 118 mg/dL High 70-99 [facility] Comment on above: Performed By: #### L 500.2500, L501.2300 ####[facility] [address] [place], [address] Potassium [Moles/Vol] 4.7 mmol/L Normal 3.3-5.1 [facility] Comment on above: Performed By: #### L 500.2500, L501.2300 ####[facility] [address] [place], [address] Sodium [Moles/Vol] 138 mmol/L Normal 133-145 [facility] Comment on above: Performed By: #### L 500.2500, L501.2300 ####[facility] [address] [place], [address] Urea nitrogen [Mass/Vol] 40 mg/dL High 4-19 [facility] Comment on above: Performed By: #### L 500.2500, L501.2300 ####[facility] [address] [place] [facility] [place], [address] Bedside Glucoseon 03-06-2025 FINGERSTICK GLU 146 mg/dL High 74-106 [facility] Comment on above: Result Comment: KODY GEMENT OF PATIENT CARE PER NURSING PROTOCOL Performed By: #### L 501.080 ####[facility] [address] [place], [address] FINGERSTICK GLU 117 mg/dL High -106 [facility] Comment on above: Result Comment: KODY GEMENT OF PATIENT CARE PER NURSING PROTOCOL Performed By: #### L 501.080 ####[facility] [address] [place], [address] FINGERSTICK GLU 229 mg/dL High -106 [facility] Comment on above: Result Comment: KODY GEMENT OF PATIENT CARE PER NURSING PROTOCOL Performed By: #### L 501.080 ####[facility] [address] [place], [address] FINGERSTICK GLU 109 mg/dL High [facility]106 [facility] Comment on above: Result Comment: KODY GEMENT OF PATIENT CARE PER NURSING PROTOCOL Performed By: #### L 501.080 ####[facility] [address] [place], [address] FINGERSTICK GLU 140 mg/dL High [facility]106 [facility] Comment on above: Result Comment: KODY GEMENT OF PATIENT CARE PER NURSING PROTOCOL Performed By: #### L 501.080 ####[facility] [address] [place], [address] Consultation - Cardiologyon 03-06-2025 Consultation - Cardiology Normal [facility] Phosphoruson 03-06-2025 Phosphate [Mass/Vol] 3.9 mg/dL Normal 2.7-4.5 [facility] Comment on above: Performed By: #### L 500.2500, L501.2300 ####[facility] [address] [place], [address] Urine cultureOrdered By: Kavita Lantigua on 03-06-2025 Bacteria identified Cx Nom (U) Culture exhibits no growth. [facility] Bedside Glucoseon 03-05-2025 FINGERSTICK GLU 111 mg/dL High 74-106 [facility] Comment on above: Result Comment: KODY GEMENT OF PATIENT CARE PER NURSING PROTOCOL Performed By: #### L 501.080 ####[facility] [address] [place], [address] FINGERSTICK GLU 152 mg/dL High 74-106 [facility] Comment on above: Result Comment: KODY GEMENT OF PATIENT CARE PER NURSING PROTOCOL Performed By: #### L 501.080 ####[facility] [address] [place], [address] FINGERSTICK GLU 159 mg/dL High 74-106 [facility] Comment on above: Result Comment: KODY GEMENT OF PATIENT CARE PER NURSING PROTOCOL Performed By: #### L 501.080 ####[facility] [address] [place], [address] Bilirubin, totalOrdered By: Nicola Madison on 03-05-2025 Bilirubin [Mass/Vol] 0.46 mg/dL 0.00-1.30 [facility] CBC W/Diff, Automatedon 02-17 Absolute Lymph 0.72 X10 3/uL Low 0.83-4.51 [facility] Comment on above: Performed By: #### L 501.2300, L100.0100 ####[facility] [address] [place], [address] Absolute Neut 5.8 X10 3/uL Normal 2.0-7.7 [facility] Comment on above: Performed By: #### L 501.2300, L100.0100 ####[facility] [address] [place], [address] Basophils/100 WBC (Bld) 0.4 % Normal 0-1 [facility] Comment on above: Performed By: #### L 501.2300, L100.0100 ####[facility] [address] [place], [address] Eosinophils/100 WBC (Bld) 2.0 % Normal 0-5 [facility] Comment on above: Performed By: #### L 501.2300, L100.0100 ####[facility] [address] [place], [address] Erythrocyte distribution width (RBC) [Ratio] 16.6 % High 11.6-14.6 [facility] Comment on above: Performed By: #### L 501.2300, L100.0100 ####[facility] [address] [place], [address] Hematocrit (Bld) [Volume fraction] 30.1 % Low 40-54 [facility] Comment on above: Performed By: #### L 501.2300, L100.0100 ####[facility] [address] [place], [address] Hemoglobin (Bld) [Mass/Vol] 9.3 g/dL Low 13.0-16.5 [facility] Comment on above: Performed By: #### L 501.2300, L100.0100 ####[facility] [address] [place], [address] IG% 0.300 Normal 0.0-0.9 [facility] Comment on above: Result Comment: IG% - Immature Granulocytes (promyelocytes, myelocytes andmetamyelocytes) > 1% indicates that a LEFT SHIFT is Present. Performed By: #### L 501.2300, L100.0100 ####[facility] [address] [place], [address] Lymphocytes/100 WBC (Bld) 9.5 % Low 19-41 [facility] Comment on above: Performed By: #### L 501.2300, L100.0100 ####[facility] [address] [place], [address] MCH (RBC) [Entitic mass] 27.0 pg Normal 27.0-32.0 [facility] Comment on above: Performed By: #### L 501.2300, L100.0100 ####[facility] [address] [place], [address] MCHC (RBC) [Mass/Vol] 30.9 g/dL Low 32-36 [facility] Comment on above: Performed By: #### L 501.2300, L100.0100 ####[facility] [address] [place], [address] MCV (RBC) [Entitic vol] 87.5 fL Normal 80-94 [facility] Comment on above: Performed By: #### L 501.2300, L100.0100 ####[facility] [address] [place], [address] Monocytes/100 WBC (Bld) 11.4 % High 0-10 [facility] Comment on above: Performed By: #### L 501.2300, L100.0100 ####[facility] [address] [place], [address] Neutrophils/100 WBC (Bld) 76.4 % High 47-70 [facility] Comment on above: Performed By: #### L 501.2300, L100.0100 ####[facility] [address] [place], [address] Nucleated RBC (Bld) [#/Vol] 0 10*3/uL Normal 0-5 [facility] Comment on above: Performed By: #### L 501.2300, L100.0100 ####[facility] [address] [place], [address] Platelet mean volume (Bld) [Entitic vol] 10.7 fL Normal 6.2-12.0 [facility] Comment on above: Performed By: #### L 501.2300, L100.0100 ####[facility] [address] [place], [address] Platelets (Bld) [#/Vol] 181 10*3/uL Normal 150-450 [facility] Comment on above: Performed By: #### L 501.2300, L100.0100 ####[facility] [address] [place], [address] RBC (Bld) [#/Vol] 3.44 10*6/uL Low 4.6-6.2 [facility] Comment on above: Performed By: #### L 501.2300, L100.0100 ####[facility] [address] [place], [address] RDW SD 52.8 fl High 35.1-43.9 [facility] Comment on above: Performed By: #### L 501.2300, L100.0100 ####[facility] [address] [place], [address] WBC (Bld) [#/Vol] 7.6 10*3/uL Normal 4.4-11.0 [facility] Comment on above: Performed By: #### L 501.2300, L100.0100 ####[facility] [address] [place], [address] Calculated very low density lipoprotein (VLDL) cholesterol measurementOrdered By: Nicola Madison on 03-05-2025 Calculated very low density lipoprotein (VLDL) cholesterol measurement 16 mg/dL 5-40 [facility] Chest 1 View (Portable)on Chest 1 View (Portable) Normal [facility] Comprehensive Metabolic Prof ilon 03-05-2025 Albumin [Mass/Vol] 3.4 g/dL Normal 3.4-4.8 [facility] Comment on above: Performed By: #### L 500.4050, L503.7505, L500.4100 ####[facility] [address] [place], [address] Albumin/Globulin [Mass ratio] 0.9 {ratio} Normal 0.9-2.4 [facility] Comment on above: Performed By: #### L 500.4050, L503.7505, L500.4100 ####[facility] [address] [place], [address] ALK PHOS 75 U/L Normal 40-129 [facility] Comment on above: Performed By: #### L 500.4050, L503.7505, L500.4100 ####[facility] [address] [place], [address] ALT [Catalytic activity/Vol] 10 U/L Normal <=46 [facility] Comment on above: Performed By: #### L 500.4050, L503.7505, L500.4100 ####[facility] [address] [place], [address] AST [Catalytic activity/Vol] 15 U/L Normal <=37 [facility] Comment on above: Performed By: #### L 500.4050, L503.7505, L500.4100 ####[facility] [address] [place], [address] Bilirubin [Mass/Vol] 0.46 mg/dL Normal 0.00-1.30 [facility] Comment on above: Performed By: #### L 500.4050, L503.7505, L500.4100 ####[facility] [address] [place], [address] BUN/CRE 18.6 RATIO Normal 10-20 [facility] Comment on above: Performed By: #### L 500.4050, L503.7505, L500.4100 ####[facility] [address] [place], [address] Calcium [Mass/Vol] 9.1 mg/dL Normal 7.6-11.0 [facility] Comment on above: Performed By: #### L 500.4050, L503.7505, L500.4100 ####[facility] [address] [place], [address] Chloride [Moles/Vol] 101 mmol/L Normal 98-108 [facility] Comment on above: Performed By: #### L 500.4050, L503.7505, L500.4100 ####[facility] [address] [place], [address] CO2 [Moles/Vol] 27.2 mmol/L Normal 21.0-32.0 [facility] Comment on above: Performed By: #### L 500.4050, L503.7505, L500.4100 ####[facility] [address] [place], [address] Creatinine [Mass/Vol] 1.95 mg/dL High 0.70-1.20 [facility] Comment on above: Performed By: #### L 500.4050, L503.7505, L500.4100 ####[facility] [address] [place], [address] ECRCL 27.26 ml/min Low 50-250 [facility] Comment on above: Performed By: #### L 500.4050, L503.7505, L500.4100 ####[facility] [address] [place], [address] GAP 10 Normal 5-15 [facility] Comment on above: Performed By: #### L 500.4050, L503.7505, L500.4100 ####[facility] [address] [place], [address] GFR/1.73 sq M.predicted among non-blacks MDRD (S/P/Bld) [Vol rate/Area] 34 mL/min/{1.73_m2} Low >60 [facility] Comment on above: Result Comment: mL/m in/1.73m2 CKD-EPI Creatinine Equation (2020) Performed By: #### L 500.4050, L503.7505, L500.4100 ####[facility] [address] [place], [address] Globulin (S) [Mass/Vol] 3.9 g/dL Normal 2.2-4.2 [facility] Comment on above: Performed By: #### L 500.4050, L503.7505, L500.4100 ####[facility] [address] [place], [address] Glucose [Mass/Vol] 171 mg/dL High 70-99 [facility] Comment on above: Performed By: #### L 500.4050, L503.7505, L500.4100 ####[facility] [address] [place], [address] Potassium [Moles/Vol] 5.0 mmol/L Normal 3.3-5.1 [facility] Comment on above: Performed By: #### L 500.4050, L503.7505, L500.4100 ####[facility] [address] [place], [address] Sodium [Moles/Vol] 138 mmol/L Normal 133-145 [facility] Comment on above: Performed By: #### L 500.4050, L503.7505, L500.4100 ####[facility] [address] [place], [address] T PROT 7.3 g/dL Normal 5.9-8.4 [facility] Comment on above: Performed By: #### L 500.4050, L503.7505, L500.4100 ####[facility] [address] [place], [address] Urea nitrogen [Mass/Vol] 36 mg/dL High 4-19 [facility] Comment on above: Performed By: #### L 500.4050, L503.7505, L500.4100 ####[facility] [address] [place], [address] Echocardiogram study reportO rdered By: Marjorie Green on 03-05-2025 Study report [facility] [address] [place] [address] Echo Complete W/ Contrast 03/05/25 0941 MR#: [id number] Acct: [id number] Name: PEDRO HILLMAN Rep #:[id number] : 1945 80 From: Marjorie Green MD Attending Dr: Dr. Deric Lantigua MD Status: ADM IN Ordering Dr: Nicola Lindsey DO Date: 03/04/25 Location: [facility] Sex: M C Admitted: 03/04/25 Reason For [...] ~ Date Dictated: 03/05/25940 Date Transcribed: 03/05/251151 Visual Manager: Signed [facility] Work Phone: [phone] 03-05-2025 Natriuretic peptide B (Bld) [Mass/Vol] 4176 pg/mL High <=1800 [facility] Comment on above: Result Comment: Hear t Failure Unlikely: < 300 pg/mLHeart Failure Likely< 50 Years: > 450 pg/mL50-75 Years: > 900 pg/mL>75 Years: > 1800 pg/mL Performed By: #### L 500.4050, L503.7505, L500.4100 ####[facility] [address] [place], [place], [address] LDL calc ser/plasOrdered By: Nicola Madison on 03-05-2025 Cholesterol in LDL [Mass/Vol] 63 mg/dL [facility] Comment on above: Uqjlaztrwd=002-673 m g/dL & Higher Yenx=544 mg/dL or greater Laboratory - Chemistry and C hemistry - challengeOrdered By: Nicola Madison on 03-05-2025 AST [Catalytic activity/Vol] 15 U/L <38 [facility] Lipid Profileon 03-05-2025 CHOL:HDL 3.04 Normal [facility] Comment on above: Performed By: #### L 500.4050, L503.7505, L500.4100 ####[facility] [address] [place], [address] Cholesterol [Mass/Vol] 117 mg/dL Normal <=200 [facility] Comment on above: Result Comment: Chol esterol level, Desirable <200 mg/dLBorderline high cholesterol 200-239 mg/dLHigh cholesterol >=240 mg/dLRecommendations of the NCEP Adult Treatment Panel for thefollowing risk-cutoff thresholds for the [place] Americanpulation. Performed By: #### L 500.4050, L503.7505, L500.4100 ####[facility] [address] [place], [address] Cholesterol in HDL [Mass/Vol] 39 mg/dL Low [facility] Comment on above: Result Comment: Gia onal Cholesterol Education Program (NCEP) guidelines:<40 mg/dL: Low HDL-cholesterol (major risk factor for CHD)>= 60 mg/dL: High HDL-cholesterol (negative risk factor forCHD)HDL-cholesterol is affected by a number of factors, e.g.smoking, exercise, hormones, sex and age. Performed By: #### L 500.4050, L503.7505, L500.4100 ####[facility] [address] [place], [address] Cholesterol in LDL [Mass/Vol] 63 mg/dL Normal [facility] Comment on above: Result Comment: Bord mpeudx=627-658 mg/dL Higher Vbew=172 mg/dL or greater Performed By: #### L 500.4050, L503.7505, L500.4100 ####[facility] [address] [place], [address] Cholesterol in VLDL [Mass/Vol] 16 mg/dL Normal 5-40 [facility] Comment on above: Performed By: #### L 500.4050, L503.7505, L500.4100 ####[facility] [address] [place], [place], [id number] Triglyceride [Mass/Vol] 79 mg/dL Normal [facility] Comment on above: Result Comment: The drugs N-Acetylcysteine and Metamizole may falselydepress this assay.Normal range: <150 mg/dLBorderline High: 150-199 mg/dLHigh: 200-499 mg/dLVery High: >500 mg/dL Performed By: #### L 500.4050, L503.7505, L500.4100 ####[facility] [address] [place], [address] Natriuretic peptide.B prohor girish N-Terminal [Mass/volume] in Serum or PlasmaOrdered By: Nicola Madison on 03-05-2025 Natriuretic peptide.B prohormone N-Terminal [Mass/Vol] 4176 pg/mL High <1800 [facility] Comment on above: Heart Failure Unlike ly: < 300 pg/mLHeart Failure Likely< 50 Years: > 450 pg/mL50-75 Years: > 900 pg/mL>75 Years: > 1800 pg/mL No Panel InformationOrdered By: Nicola Madison on 03-05-2025 15 U/L <38 [facility] Phosphoruson 03-05-2025 Phosphate [Mass/Vol] 3.3 mg/dL Normal 2.7-4.5 [facility] Comment on above: Performed By: #### L 501.2300, L100.0100 ####[facility] [address] [place], [address] Screening total cholesterol/ high density lipoprotein (HDL) cholesterol ratioOrdered By: Nicola Madison on 03-05-2025 Cholesterol.total/Choles terol in HDL [Mass ratio] 3.04 {ratio} [facility] Serum globulin measurementOr dered By: Nicola Madison on 03-05-2025 Globulin (S) [Mass/Vol] 3.9 g/dL 2.2-4.2 [facility] Serum or plasma alanine ortiz otransferase (ALT) measurementOrdered By: Nicola Madison on 03-05-2025 ALT [Catalytic activity/Vol] 10 U/L <47 [facility] Serum or plasma albumin kingsley urement (mass/volume)Ordered By: Nicola Madison on 03-05-2025 Albumin [Mass/Vol] 3.4 g/dL 3.4-4.8 [facility] Serum or plasma albumin/glob ulin mass ratioOrdered By: Nicola Madison on 03-05-2025 Albumin/Globulin [Mass ratio] 0.9 {ratio} 0.9-2.4 [facility] Serum or plasma alkaline roosevelt sphatase measurementOrdered By: Nicola Madison on 03-05-2025 ALP [Catalytic activity/Vol] 75 U/L 40-129 [facility] Serum or plasma cholesterol in HDL measurement (mass/volume)Ordered By: Nicola Madison on 03-05-2025 Cholesterol in HDL [Mass/Vol] 39 mg/dL Low >40 [facility] Comment on above: National Cholesterol Education [...] the following risk-cutoff thresholds for the [place] population. Total proteinOrdered By: Jacob Madison on 03-05-2025 Protein [Mass/Vol] 7.3 g/dL 5.9-8.4 [facility] Triglycerides measurementOrd ered By: Nicola Madison on 03-05-2025 Triglyceride [Mass/Vol] 79 mg/dL <199 [facility] Comment on above: The drugs N-Acetylcy steine and Metamizole may falsely depress this assay. Normal range: <150 mg/dLBorderline High: 150-199 mg/dLHigh: 200-499 mg/dLVery High: >500 mg/dL Absolute lymphocyte countOrd ered By: Chris Ochoa on 03-04-2025 Lymphocytes Auto (Unsp spec) [#/Vol] 0.77 10*3/uL Low 0.83-4.51 [facility] Absolute neutrophil countOrd ered By: Chris Ochoa on 03-04-2025 Neutrophils (Bld) [#/Vol] 6.0 10*3/uL 2.0-7.7 [facility] Anion gap in Serum or Plasma Ordered By: Chris Ochoa on 03-04-2025 Anion gap [Moles/Vol] 8 mmol/L 5-15 [facility] Automated lymphocyte count a s percentage of total leukocytesOrdered By: Chris Ochoa on 03-04-2025 Lymphocytes/100 WBC Auto (Unsp spec) 10.1 % Low 19-41 [facility] BUN/creatinine ratioOrdered By: Chris Ochoa on 03-04-2025 Urea nitrogen/Creatinine [Mass ratio] 19.7 mg/mg 10- [facility] Basic Metabolic Profile (BMP )on 03-04-2025 BUN/CRE 19.7 RATIO Normal 10-20 [facility] Comment on above: Performed By: #### L 100.0100, L501.4021, L500.2500, L503.7505 ####[facility] [address] [place], [address] Calcium [Mass/Vol] 9.3 mg/dL Normal 7.6-11.0 [facility] Comment on above: Performed By: #### L 100.0100, L501.4021, L500.2500, L503.7505 ####[facility] [address] [place], [address] Chloride [Moles/Vol] 102 mmol/L Normal 98-108 [facility] Comment on above: Performed By: #### L 100.0100, L501.4021, L500.2500, L503.7505 ####[facility] [address] [place], [address] CO2 [Moles/Vol] 28.6 mmol/L Normal 21.0-32.0 [facility] Comment on above: Performed By: #### L 100.0100, L501.4021, L500.2500, L503.7505 ####[facility] [address] [place], [address] Creatinine [Mass/Vol] 1.86 mg/dL High 0.70-1.20 [facility] Comment on above: Performed By: #### L 100.0100, L501.4021, L500.2500, L503.7505 ####[facility] [address] [place], [address] ECRCL 28.58 ml/min Low 50-250 [facility] Comment on above: Performed By: #### L 100.0100, L501.4021, L500.2500, L503.7505 ####[facility] [address] [place], [address] GAP 8 Normal 5-15 [facility] Comment on above: Performed By: #### L 100.0100, L501.4021, L500.2500, L503.7505 ####[facility] [address] [place], [address] GFR/1.73 sq M.predicted among non-blacks MDRD (S/P/Bld) [Vol rate/Area] 36 mL/min/{1.73_m2} Low >60 [facility] Comment on above: Result Comment: mL/m in/1.73m2 CKD-EPI Creatinine Equation (2020) Performed By: #### L 100.0100, L501.4021, L500.2500, L503.7505 ####[facility] [address] [place], [address] Glucose [Mass/Vol] 124 mg/dL High 70-99 [facility] Comment on above: Performed By: #### L 100.0100, L501.4021, L500.2500, L503.7505 ####[facility] [address] [place], [address] Potassium [Moles/Vol] 5.2 mmol/L High 3.3-5.1 [facility] Comment on above: Performed By: #### L 100.0100, L501.4021, L500.2500, L503.7505 ####[facility] [address] [place], [address] Sodium [Moles/Vol] 138 mmol/L Normal 133-145 [facility] Comment on above: Performed By: #### L 100.0100, L501.4021, L500.2500, L503.7505 ####[facility] [address] [place], [address] Urea nitrogen [Mass/Vol] 37 mg/dL High 4-19 [facility] Comment on above: Performed By: #### L 100.0100, L501.4021, L500.2500, L503.7505 ####[facility] [address] [place], [address] Basophil percentageOrdered B y: Chris Ochoa on 03-04-2025 Basophils/100 WBC (Bld) 0.4 % 0-1 [facility] Hospital Bedside Glucoseon 03-04-2025 FINGERSTICK GLU 80 mg/dL Normal 74-106 [facility] Comment on above: Result Comment: KODY STRONG OF PATIENT CARE PER NURSING PROTOCOL Performed By: #### L 501.080 ####[facility] [address] [place], [address] Bilirubin Test strip Ql (U)O rdered By: Nicola Madison on 03-04-2025 Bilirubin Ql (U) Negative Negative [facility] CBC W/Diff, Automatedon 07-1 -2024 Absolute Lymph 0.77 X10 3/uL Low 0.83-4.51 [facility] Comment on above: Performed By: #### L 100.0100, L501.4021, L500.2500, L503.7505 ####[facility] [address] [place], [address] Absolute Neut 6.0 X10 3/uL Normal 2.0-7.7 [facility] Comment on above: Performed By: #### L 100.0100, L501.4021, L500.2500, L503.7505 ####[facility] [address] [place], [address] Basophils/100 WBC (Bld) 0.4 % Normal 0-1 [facility] Comment on above: Performed By: #### L 100.0100, L501.4021, L500.2500, L503.7505 ####[facility] [address] [place], [address] Eosinophils/100 WBC (Bld) 1.6 % Normal 0-5 [facility] Comment on above: Performed By: #### L 100.0100, L501.4021, L500.2500, L503.7505 ####[facility] [address] [place], [address] Erythrocyte distribution width (RBC) [Ratio] 16.5 % High 11.6-14.6 [facility] Comment on above: Performed By: #### L 100.0100, L501.4021, L500.2500, L503.7505 ####[facility] [address] [place], [address] Hematocrit (Bld) [Volume fraction] 33.4 % Low 40-54 [facility] Comment on above: Performed By: #### L 100.0100, L501.4021, L500.2500, L503.7505 ####[facility] [address] [place], [address] Hemoglobin (Bld) [Mass/Vol] 10.1 g/dL Low 13.0-16.5 [facility] Comment on above: Performed By: #### L 100.0100, L501.4021, L500.2500, L503.7505 ####[facility] [address] [place], [address] IG% 0.700 Normal 0.0-0.9 [facility] Comment on above: Result Comment: IG% - Immature Granulocytes (promyelocytes, myelocytes andmetamyelocytes) > 1% indicates that a LEFT SHIFT is Present. Performed By: #### L 100.0100, L501.4021, L500.2500, L503.7505 ####[facility] [address] [place], [address] Lymphocytes/100 WBC (Bld) 10.1 % Low 19-41 [facility] Comment on above: Performed By: #### L 100.0100, L501.4021, L500.2500, L503.7505 ####[facility] [address] [place], [address] MCH (RBC) [Entitic mass] 27.0 pg Normal 27.0-32.0 [facility] Comment on above: Performed By: #### L 100.0100, L501.4021, L500.2500, L503.7505 ####[facility] [address] [place], [address] MCHC (RBC) [Mass/Vol] 30.2 g/dL Low 32-36 [facility] Comment on above: Performed By: #### L 100.0100, L501.4021, L500.2500, L503.7505 ####[facility] [address] [place], [address] MCV (RBC) [Entitic vol] 89.3 fL Normal 80-94 [facility] Comment on above: Performed By: #### L 100.0100, L501.4021, L500.2500, L503.7505 ####[facility] [address] [place], [address] Monocytes/100 WBC (Bld) 9.1 % Normal 0-10 [facility] Comment on above: Performed By: #### L 100.0100, L501.4021, L500.2500, L503.7505 ####[facility] [address] [place], [address] Neutrophils/100 WBC (Bld) 78.1 % High 47-70 [facility] Comment on above: Performed By: #### L 100.0100, L501.4021, L500.2500, L503.7505 ####[facility] [address] [place], [address] Nucleated RBC (Bld) [#/Vol] 0 10*3/uL Normal 0-5 [facility] Comment on above: Performed By: #### L 100.0100, L501.4021, L500.2500, L503.7505 ####[facility] [address] [place], [address] Platelet mean volume (Bld) [Entitic vol] 10.2 fL Normal 6.2-12.0 [facility] Comment on above: Performed By: #### L 100.0100, L501.4021, L500.2500, L503.7505 ####[facility] [address] [place], [address] Platelets (Bld) [#/Vol] 189 10*3/uL Normal 150-450 [facility] Comment on above: Performed By: #### L 100.0100, L501.4021, L500.2500, L503.7505 ####[facility] [address] [place], [address] RBC (Bld) [#/Vol] 3.74 10*6/uL Low 4.6-6.2 [facility] Comment on above: Performed By: #### L 100.0100, L501.4021, L500.2500, L503.7505 ####[facility] [address] [place], [address] RDW SD 54.2 fl High 35.1-43.9 [facility] Comment on above: Performed By: #### L 100.0100, L501.4021, L500.2500, L503.7505 ####[facility] [address] [place], [address] WBC (Bld) [#/Vol] 7.6 10*3/uL Normal 4.4-11.0 [facility] Comment on above: Performed By: #### L 100.0100, L501.4021, L500.2500, L503.7505 ####[facility] [address] [place], [address] Carbon dioxide, total [Moles /volume] in Central venous bloodOrdered By: Chris Ochoa on 03-04-2025 CO2 [Moles/Vol] 28.6 mmol/L 21.0-32.0 [facility] Chest PA and Lateralon 03-04 Chest PA and Lateral Normal [facility] Chloride assayOrdered By: Chino Ochoa on 03-04-2025 Chloride [Moles/Vol] 102 mmol/L 98-108 [facility] Echo Complete W/ Contraston 03-04-2025 Echo Complete W/ Contrast Normal [facility] Emergency Department Summary on 03-04-2025 Emergency Department Summary Normal [facility] Eosinophil percentageOrdered By: Chris Ochoa on 03-04-2025 Eosinophils/100 WBC (Bld) 1.6 % 0-5 [facility] Erythrocyte distribution wid th ratioOrdered By: Chris Ochoa on 03-04-2025 Erythrocyte distribution width (RBC) [Ratio] 16.5 % High 11.6-14.6 [facility] Erythrocyte distribution wid th standard deviationOrdered By: Chris Ochoa on 03-04-2025 Erythrocyte distribution width (RBC) [Ratio] 54.2 fl High 35.1-43.9 [facility] Glomerular filtration rate ( GFR) estimation/1.73 sq m using serum, plasma, or whole bOrdered By: Chris Ochoa on 03-04-2025 GFR/1.73 sq M.predicted among non-blacks MDRD (S/P/Bld) [Vol rate/Area] 36 mL/min/{1.73_m2} Low >60 [facility] Comment on above: mL/min/1.73m2 CKD-EP I Creatinine Equation (2020) H AND P Exam - Hospitaliston 03-04-2025 H&P Exam - Hospitalist Normal [facility] Hematocrit Auto (Bld) [Volum e fraction]Ordered By: Chris Ochoa on 03-04-2025 Hematocrit (Bld) [Volume fraction] 33.4 % Low 40-54 [facility] Hemoglobin A1con 03-04-2025 HbA1c (Bld) [Mass fraction] 6.3 % High <=5.6 [facility] Comment on above: Result Comment: Norm al < 5.7 % Prediabetic 5.7 - 6.4 % Diabetic >or= 6.5 % Please note range changes. Performed By: #### L 501.5200, L501.9985, L501.9520 ####[facility] [address] [place], [place], [id number] Hemoglobin A1c percentageOrd ered By: Nicola Madison on 03-04-2025 HbA1c (Bld) [Mass fraction] 6.3 % High <5.7 [facility] Comment on above: Normal < 5.7 % Predi abetic 5.7 - 6.4 % Diabetic >or= 6.5 % Please note range changes. Hemoglobin measurementOrdere d By: Chris Ochoa on 03-04-2025 Hemoglobin (Bld) [Mass/Vol] 10.1 g/dL Low 13.0-16.5 [facility] Immature granulocytes/100 WB C Auto (Bld)Ordered By: Chris Ochoa on 03-04-2025 Immature granulocytes/100 WBC (Bld) 0.700 % 0.0-0.9 [facility] Comment on above: IG% - Immature Granu locytes (promyelocytes, myelocytes and metamyelocytes) > 1% indicates that a LEFT SHIFT is Present. Ketones Test strip Ql (U)Ord ered By: Nicola Madison on 03-04-2025 Ketones Ql (U) Negative Negative [facility] L499.0042on 03-04-2025 Trop T High Sen 45 ng/L High <=22 [facility] Comment on above: Performed By: #### L 499.0042 ####[facility] [address] [place], [address] L499.0043on 03-04-2025 Trop T High Sen 42 ng/L High <=22 [facility] Comment on above: Performed By: #### L 499.0043 ####[facility] [address] [place], [address] L501.4021on 03-04-2025 Trop T High Sen 44 ng/L High <=22 [facility] Comment on above: Performed By: #### L 100.0100, L501.4021, L500.2500, L503.7505 ####[facility] [address] [place], [address] L503.7505on 03-04-2025 Natriuretic peptide B (Bld) [Mass/Vol] 3316 pg/mL High <=1800 [facility] Comment on above: Result Comment: Hear t Failure Unlikely: < 300 pg/mLHeart Failure Likely< 50 Years: > 450 pg/mL50-75 Years: > 900 pg/mL>75 Years: > 1800 pg/mL Performed By: #### L 100.0100, L501.4021, L500.2500, L503.7505 ####[facility] [address] [place], [address] MCV (mean corpuscular volume ) determinationOrdered By: Chris Ochoa on 03-04-2025 MCV (RBC) [Entitic vol] 89.3 fL 80-94 [facility] Magnesiumon 03-04-2025 Magnesium [Mass/Vol] 2.0 mg/dL Normal 1.5-2.2 [facility] Comment on above: Performed By: #### L 501.5200, L501.9985, L501.9520 ####[facility] [address] [place], [address] Mean corpuscular hemoglobin (MCH) determinationOrdered By: Chris Ochoa on 03-04-2025 MCH (RBC) [Entitic mass] 27.0 pg 27.0-32.0 [facility] Mean corpuscular hemoglobin concentration (MCHC) determinationOrdered By: Chris Ochoa on 03-04-2025 MCHC (RBC) [Mass/Vol] 30.2 g/dL Low 32-36 [facility] Mean platelet volume determi nationOrdered By: Chris Ochoa on 03-04-2025 Platelet mean volume (Bld) [Entitic vol] 10.2 fL 6.2-12.0 [facility] Microscopic analysis of urin e for red blood cells (RBC)Ordered By: Nicola Madison on 03-04-2025 Microscopic analysis of urine for red blood cells (RBC) 5-10 SEEN /hpf 0-5 [facility] Monocyte percentageOrdered B y: Chris Ochoa on 03-04-2025 Monocytes/100 WBC (Bld) 9.1 % 0-10 [facility] Mucus LM Ql (Urine sed)Order ed By: Nicola Madison on 03-04-2025 Mucus Ql (Urine sed) 0 SEEN /hpf [facility] Natriuretic peptide.B prohor girish N-Terminal [Mass/volume] in Serum or PlasmaOrdered By: Chris Ochoa on 03-04-2025 Natriuretic peptide.B prohormone N-Terminal [Mass/Vol] 3316 pg/mL High <1800 [facility] Comment on above: Heart Failure Unlike ly: < 300 pg/mLHeart Failure Likely< 50 Years: > 450 pg/mL50-75 Years: > 900 pg/mL>75 Years: > 1800 pg/mL Neutrophil percentageOrdered By: Chris Ochoa on 03-04-2025 Neutrophils/100 WBC (Bld) 78.1 % High 47-70 [facility] Nitrite Test strip Ql (U)Ord ered By: Nicola Madison on 03-04-2025 Nitrite Ql (U) Positive High Negative [facility] Nucleated red blood cell per centageOrdered By: Chris Ochoa on 03-04-2025 Nucleated RBC/100 WBC (Bld) [Ratio] 0 % 0-5 [facility] Platelet countOrdered By: Chino Ochoa on 03-04-2025 Platelets (Bld) [#/Vol] 189 10*3/uL 150-450 [facility] Potassium measurement (mass/ volume)Ordered By: Chris Ochoa on 03-04-2025 Potassium (Unsp spec) [Mass/Vol] 5.2 mmol/L High 3.3-5.1 [facility] Protein Test strip Ql (U)Ord ered By: Nicola Madison on 03-04-2025 Protein Ql (U) 100 mg/dl High Negative [facility] RBC Auto (Bld) [#/Vol]Ordere d By: Chris Ochoa on 03-04-2025 RBC (Bld) [#/Vol] 3.74 10*6/uL Low 4.6-6.2 [facility] Serum creatinine measurement (mass/volume)Ordered By: Chris Ochoa on 03-04-2025 Creatinine [Mass/Vol] 1.86 mg/dL High 0.70-1.20 [facility] Serum glucose measurement (m ass/volume)Ordered By: Chris Ochoa on 03-04-2025 Glucose [Mass/Vol] 124 mg/dL High 70-99 [facility] Serum or plasma calcium [place] urement (mass/volume)Ordered By: Chris Ochoa on 03-04-2025 Calcium [Mass/Vol] 9.3 mg/dL 7.6-11.0 [facility] Serum or plasma urea nitroge n measurement (mass/volume)Ordered By: Chris Ochoa on 03-04-2025 Urea nitrogen [Mass/Vol] 37 mg/dL High 4-19 [facility] Sodium levelOrdered By: Chris Ochoa on 03-04-2025 Sodium [Moles/Vol] 138 mmol/L 133-145 [facility] Squamous epithelial cells de tection in urine sediment by light microscopyOrdered By: Nicoal Madison on 03-04-2025 Epithelial cells.squamous LM Ql (Urine sed) 0 SEEN /hpf 0-5 [facility] TSH DL <= 0.005 mIU/L QnOrde red By: Nicola Madison on 03-04-2025 TSH Qn 3.780 uIU/mL 0.300-4.20 0 [facility] Thyroid Stim Hormone (TSH)on 03-04-2025 TSH 3.780 uIU/mL Normal 0.300-4.20 0 [facility] Comment on above: Performed By: #### L 501.5200, L501.9985, L501.9520 ####[facility] [address] [place], [place], [id number] Troponin T.cardiac [Mass/vol ume] in Serum or Plasma by High sensitivity methodOrdered By: Chris Ochoa on 03-04-2025 Troponin T.cardiac High sensitivity method [Mass/Vol] 42 ng/L High <22 [facility] Troponin T.cardiac High sensitivity method [Mass/Vol] 45 ng/L High <22 [facility] Troponin T.cardiac High sensitivity method [Mass/Vol] 44 ng/L High <22 [facility] Urinalysis, Completeon 03-04 RBC 5-10 SEEN Normal 0-5 [facility] Comment on above: Order Comment: CLEAN CATCH Performed By: #### L 400.0001 ####[facility] [address] [place], [place], [id number] BACTERIA 2+ /hpf Normal None Seen [facility] Comment on above: Order Comment: CLEAN CATCH Performed By: #### L 400.0001 ####[facility] [address] [place], [place], [id number] WBC >100 SEEN Normal 0-5 [facility] Comment on above: Order Comment: CLEAN CATCH Performed By: #### L 400.0001 ####[facility] [address] [place], [place], [id number] EPI,SQUAMOUS 0 SEEN Normal 0-5 [facility] Comment on above: Order Comment: CLEAN CATCH Performed By: #### L 400.0001 ####[facility] [address] [place], [place], [address] Mucus Ql (Urine sed) 0 SEEN Normal [facility] Comment on above: Order Comment: CLEAN CATCH Performed By: #### L 400.0001 ####[facility] [address] [place], [place], [id number] Urine clarityOrdered By: Jacob Madison on 03-04-2025 Clarity (U) Cloudy Clear [facility] Urine color determinationOrd ered By: Nicola Madison on 03-04-2025 Color (U) Yellow Yellow [facility] Urine glucose detectionOrder ed By: Nicola Madison on 03-04-2025 Glucose Ql (U) Normal mg/dl Normal [facility] Urine leukocyte esterase det ection by dipstickOrdered By: Nicola Madison on 03-04-2025 Leukocyte esterase Test strip Ql (U) 500 /ul High Negative [facility] Urine pHOrdered By: Nicola stack on 03-04-2025 pH (U) 6.5 [pH] 5.0 - 8.0 [facility] Urine sediment bacteria coun t by microscopy (number/high power field)Ordered By: Nicola Madison on 03-04-2025 Bacteria LM.HPF (Urine sed) [#/Area] 2 /[HPF] None Seen [facility] Urine specific gravity measu rementOrdered By: Nicola Madison on 03-04-2025 Specific gravity (U) [Rel density] 1.010 1.002-1.03 0 [facility] Urine urobilinogen measureme ntOrdered By: Nicola Madison on 03-04-2025 Urobilinogen Ql (U) Normal mg/dl Normal [facility] White blood cell (WBC) count Ordered By: Chris Ochoa on 03-04-2025 WBC (Bld) [#/Vol] 7.6 10*3/uL 4.4-11.0 [facility] White blood cell countOrdere d By: Nicola Madison on 03-04-2025 White blood cell count >100 SEEN /hpf 0-5 [facility] Absolute lymphocyte countOrd ered By: Russ Wallsangelo on 11-06-2024 Lymphocytes Auto (Unsp spec) [#/Vol] 0.82 10*3/uL Low 0.83-4.51 [facility] Absolute neutrophil countOrd ered By: Russ Wallsangelo on 11-06-2024 Neutrophils (Bld) [#/Vol] 8.1 10*3/uL High 2.0-7.7 [facility] Anion gap in Serum or Plasma Ordered By: Russ Wallsangelo on 11-06-2024 Anion gap [Moles/Vol] 10 mmol/L 5-15 [facility] Automated lymphocyte count a s percentage of total leukocytesOrdered By: Russ Wallsangelo on 11-06-2024 Lymphocytes/100 WBC Auto (Unsp spec) 8.1 % Low 19-41 [facility] BUN/creatinine ratioOrdered By: Russ Wallsangelo on 11-06-2024 Urea nitrogen/Creatinine [Mass ratio] 19.3 mg/mg 10- [facility] Basophil percentageOrdered B y: Russ Wallsangelo on 11-06-2024 Basophils/100 WBC (Bld) 0.3 % 0-1 [facility] Bilirubin, totalOrdered By: Russ Wallsangelo on 11-06-2024 Bilirubin [Mass/Vol] 0.46 mg/dL 0.00-1.30 [facility] CBC W/Diff, Automatedon --2024 Absolute Lymph 0.82 X10 3/uL Low 0.83-4.51 [facility] Comment on above: Performed By: #### L 500.4050, L504.2610, L100.0100 ####[facility] [address] [place], [address] Absolute Neut 8.1 X10 3/uL High 2.0-7.7 [facility] Comment on above: Performed By: #### L 500.4050, L504.2610, L100.0100 ####[facility] [address] [place], [address] Basophils/100 WBC (Bld) 0.3 % Normal 0-1 [facility] Comment on above: Performed By: #### L 500.4050, L504.2610, L100.0100 ####[facility] [address] [place], [address] Eosinophils/100 WBC (Bld) 1.7 % Normal 0-5 [facility] Comment on above: Performed By: #### L 500.4050, L504.2610, L100.0100 ####[facility] [address] [place], [address] Erythrocyte distribution width (RBC) [Ratio] 16.8 % High 11.6-14.6 [facility] Comment on above: Performed By: #### L 500.4050, L504.2610, L100.0100 ####[facility] [address] [place], [address] Hematocrit (Bld) [Volume fraction] 34.2 % Low 40-54 [facility] Comment on above: Performed By: #### L 500.4050, L504.2610, L100.0100 ####[facility] [address] [place], [address] Hemoglobin (Bld) [Mass/Vol] 10.7 g/dL Low 13.0-16.5 [facility] Comment on above: Performed By: #### L 500.4050, L504.2610, L100.0100 ####[facility] [address] [place], [address] IG% 0.500 Normal 0.0-0.9 [facility] Comment on above: Result Comment: IG% - Immature Granulocytes (promyelocytes, myelocytes andmetamyelocytes) > 1% indicates that a LEFT SHIFT is Present. Performed By: #### L 500.4050, L504.2610, L100.0100 ####[facility] [address] [place], [address] Lymphocytes/100 WBC (Bld) 8.1 % Low 19-41 [facility] Comment on above: Performed By: #### L 500.4050, L504.2610, L100.0100 ####[facility] [address] [place], [address] MCH (RBC) [Entitic mass] 27.4 pg Normal 27.0-32.0 [facility] Comment on above: Performed By: #### L 500.4050, L504.2610, L100.0100 ####[facility] [address] [place], [address] MCHC (RBC) [Mass/Vol] 31.3 g/dL Low 32-36 [facility] Comment on above: Performed By: #### L 500.4050, L504.2610, L100.0100 ####[facility] [address] [place], [address] MCV (RBC) [Entitic vol] 87.5 fL Normal 80-94 [facility] Comment on above: Performed By: #### L 500.4050, L504.2610, L100.0100 ####[facility] [address] [place], [address] Monocytes/100 WBC (Bld) 8.8 % Normal 0-10 [facility] Comment on above: Performed By: #### L 500.4050, L504.2610, L100.0100 ####[facility] [address] [place], [address] Neutrophils/100 WBC (Bld) 80.6 % High 47-70 [facility] Comment on above: Performed By: #### L 500.4050, L504.2610, L100.0100 ####[facility] [address] [place], [address] Nucleated RBC (Bld) [#/Vol] 0 10*3/uL Normal 0-5 [facility] Comment on above: Performed By: #### L 500.4050, L504.2610, L100.0100 ####[facility] [address] [place], [address] Platelet mean volume (Bld) [Entitic vol] 10.4 fL Normal 6.2-12.0 [facility] Comment on above: Performed By: #### L 500.4050, L504.2610, L100.0100 ####[facility] [address] [place], [address] Platelets (Bld) [#/Vol] 212 10*3/uL Normal 150-450 [facility] Comment on above: Performed By: #### L 500.4050, L504.2610, L100.0100 ####[facility] [address] [place], [address] RBC (Bld) [#/Vol] 3.91 10*6/uL Low 4.6-6.2 [facility] Comment on above: Performed By: #### L 500.4050, L504.2610, L100.0100 ####[facility] [address] [place], [address] RDW SD 53.5 fl High 35.1-43.9 [facility] Comment on above: Performed By: #### L 500.4050, L504.2610, L100.0100 ####[facility] [address] [place], [address] WBC (Bld) [#/Vol] 10.1 10*3/uL Normal 4.4-11.0 [facility] Comment on above: Performed By: #### L 500.4050, L504.2610, L100.0100 ####[facility] [address] [place], [address] Carbon dioxide, total [Moles /volume] in Central venous bloodOrdered By: Russ Zamora on 11-06-2024 CO2 [Moles/Vol] 25.2 mmol/L 21.0-32.0 [facility] Chloride assayOrdered By: Flores Zamora on 11-06-2024 Chloride [Moles/Vol] 105 mmol/L 98-108 [facility] Comprehensive Metabolic Prof ilon 11-06-2024 Albumin [Mass/Vol] 3.8 g/dL Normal 3.4-4.8 [facility] Comment on above: Performed By: #### L 500.4050, L504.2610, L100.0100 ####[facility] [address], [address] Albumin/Globulin [Mass ratio] 0.9 {ratio} Normal 0.9-2.4 [facility] Comment on above: Performed By: #### L 500.4050, L504.2610, L100.0100 ####[facility] [address] [place], [address] ALK PHOS 72 U/L Normal 40-129 [facility] Comment on above: Performed By: #### L 500.4050, L504.2610, L100.0100 ####[facility] [address] [place], [address] ALT [Catalytic activity/Vol] 10 U/L Normal <=46 [facility] Comment on above: Performed By: #### L 500.4050, L504.2610, L100.0100 ####[facility] [address] [place], [address] AST [Catalytic activity/Vol] 16 U/L Normal <=37 [facility] Comment on above: Performed By: #### L 500.4050, L504.2610, L100.0100 ####[facility] [address] [place], [address] Bilirubin [Mass/Vol] 0.46 mg/dL Normal 0.00-1.30 [facility] Comment on above: Performed By: #### L 500.4050, L504.2610, L100.0100 ####[facility] [address] [place], [address] BUN/CRE 19.3 RATIO Normal 10-20 [facility] Comment on above: Performed By: #### L 500.4050, L504.2610, L100.0100 ####[facility] [address] [place], [address] Calcium [Mass/Vol] 9.1 mg/dL Normal 7.6-11.0 [facility] Comment on above: Performed By: #### L 500.4050, L504.2610, L100.0100 ####[facility] [address] [place], [address] Chloride [Moles/Vol] 105 mmol/L Normal 98-108 [facility] Comment on above: Performed By: #### L 500.4050, L504.2610, L100.0100 ####[facility] [facility] [address] [place], [address] CO2 [Moles/Vol] 25.2 mmol/L Normal 21.0-32.0 [facility] Comment on above: Performed By: #### L 500.4050, L504.2610, L100.0100 ####[facility] [address] [place], [address] Creatinine [Mass/Vol] 1.87 mg/dL High 0.70-1.20 [facility] Comment on above: Performed By: #### L 500.4050, L504.2610, L100.0100 ####[facility] [address] [place], [address] ECRCL 32.00 ml/min Low 50-250 [facility] Comment on above: Performed By: #### L 500.4050, L504.2610, L100.0100 ####[facility] [address] [place], [address] GAP 10 Normal 5-15 [facility] Comment on above: Performed By: #### L 500.4050, L504.2610, L100.0100 ####[facility] [address] [place], [address] GFR/1.73 sq M.predicted among non-blacks MDRD (S/P/Bld) [Vol rate/Area] 36 mL/min/{1.73_m2} Low >60 [facility] Comment on above: Result Comment: mL/m in/1.73m2 CKD-EPI Creatinine Equation (2020) Performed By: #### L 500.4050, L504.2610, L100.0100 ####[facility] [address] [place], [address] Globulin (S) [Mass/Vol] 4.1 g/dL Normal 2.2-4.2 [facility] Comment on above: Performed By: #### L 500.4050, L504.2610, L100.0100 ####[facility] [address] [place], [address] Glucose [Mass/Vol] 132 mg/dL High 70-99 [facility] Comment on above: Performed By: #### L 500.4050, L504.2610, L100.0100 ####[facility] [address] [place], [address] Potassium [Moles/Vol] 4.8 mmol/L Normal 3.3-5.1 [facility] Comment on above: Performed By: #### L 500.4050, L504.2610, L100.0100 ####[facility] [address] [place], [address] Sodium [Moles/Vol] 140 mmol/L Normal 133-145 [facility] Comment on above: Performed By: #### L 500.4050, L504.2610, L100.0100 ####[facility] [address] [place], [address] T PROT 7.9 g/dL Normal 5.9-8.4 [facility] Comment on above: Performed By: #### L 500.4050, L504.2610, L100.0100 ####[facility] [address] [place], [address] Urea nitrogen [Mass/Vol] 36 mg/dL High 4-19 [facility] Comment on above: Performed By: #### L 500.4050, L504.2610, L100.0100 ####[facility] [address] [place], [address] Eosinophil percentageOrdered By: Russ Zamora on 11-06-2024 Eosinophils/100 WBC (Bld) 1.7 % 0-5 [facility] Erythrocyte distribution wid th ratioOrdered By: Russ Zamora on 11-06-2024 Erythrocyte distribution width (RBC) [Ratio] 16.8 % High 11.6-14.6 [facility] Erythrocyte distribution wid th standard deviationOrdered By: Russ Zamora on 11-06-2024 Erythrocyte distribution width (RBC) [Entitic vol] 53.5 fL High 35.1-43.9 [facility] Erythrocyte distribution width (RBC) [Ratio] 53.5 fl High 35.1-43.9 [facility] Estimation of creatinine rowdy aranceOrdered By: Russ Zamora on 11-06-2024 Estimated Creatinine Clearance Calc 32.00 ml/min Low 50-250 [facility] GFR/1.73 sq M.predicted kaylyn g non-blacks MDRD (S/P/Bld) [Vol rate/Area]Ordered By: Russ Zamora on 11-06-2024 Estimated GFR (MDRD) Non-Af Amer 36 Low >60 [facility] Comment on above: mL/min/1.73m2 CKD-EP I Creatinine Equation (2020) Glomerular filtration rate ( GFR) estimation/1.73 sq m using serum, plasma, or whole bOrdered By: Russ Zamora on 11-06-2024 GFR/1.73 sq M.predicted among non-blacks MDRD (S/P/Bld) [Vol rate/Area] 36 mL/min/{1.73_m2} Low >60 [facility] Comment on above: mL/min/1.73m2 CKD-EP I Creatinine Equation (2020) Hematocrit Auto (Bld) [Volum e fraction]Ordered By: Russ Zamora on 11-06-2024 Hematocrit (Bld) [Volume fraction] 34.2 % Low 40-54 [facility] Hemoglobin measurementOrdere d By: Russ Zamora on 11-06-2024 Hemoglobin (Bld) [Mass/Vol] 10.7 g/dL Low 13.0-16.5 [facility] Immature granulocytes/100 WB C Auto (Bld)Ordered By: Russ Zamora on 11-06-2024 Immature granulocytes/100 WBC (Bld) 0.500 % 0.0-0.9 [facility] Comment on above: IG% - Immature Granu locytes (promyelocytes, myelocytes and metamyelocytes) > 1% indicates that a LEFT SHIFT is Present. LDHon 11-06-2024 LDH 135 U/L Normal 87-241 [facility] Comment on above: Order Comment: 1 Performed By: #### L 500.4050, L504.2610, L100.0100 ####[facility] [address] [place], [address] Laboratory - Chemistry and C hemistry - challengeOrdered By: Russ Zamora on 11-06-2024 AST [Catalytic activity/Vol] 16 U/L <38 [facility] Lactate dehydrogenase (LDH) measurementOrdered By: Russ Zamora on 11-06-2024 LDH [Catalytic activity/Vol] 135 U/L 87-241 [facility] Lymphocytes Auto (Unsp spec) [#/Vol]Ordered By: Russ Zamora on 11-06-2024 Lymphocytes (Bld) [#/Vol] 0.82 10*3/uL Low 0.83-4.51 [facility] Lymphocytes/100 WBC Auto (Un sp spec)Ordered By: Russ Zamora on 11-06-2024 Lymphocytes/100 WBC (Bld) 8.1 % Low 19-41 [facility] MCV (mean corpuscular volume ) determinationOrdered By: Russ Zamora on 11-06-2024 MCV (RBC) [Entitic vol] 87.5 fL 80-94 [facility] Mean corpuscular hemoglobin (MCH) determinationOrdered By: Russ Zamora on 11-06-2024 MCH (RBC) [Entitic mass] 27.4 pg 27.0-32.0 [facility] Mean corpuscular hemoglobin concentration (MCHC) determinationOrdered By: Russ Zamora on 11-06-2024 MCHC (RBC) [Mass/Vol] 31.3 g/dL Low 32-36 [facility] Mean platelet volume determi nationOrdered By: Russ Zamora on 11-06-2024 Platelet mean volume (Bld) [Entitic vol] 10.4 fL 6.2-12.0 [facility] Monocyte percentageOrdered B y: Russ Zamora on 11-06-2024 Monocytes/100 WBC (Bld) 8.8 % 0-10 [facility] Neutrophil percentageOrdered By: Russ Zamora on 11-06-2024 Neutrophils/100 WBC (Bld) 80.6 % High 47-70 [facility] Nucleated red blood cell per centageOrdered By: Russ Zamora on 11-06-2024 Nucleated RBC/100 WBC (Bld) [Ratio] 0 % 0-5 [facility] Oncology Visit Reporton - Oncology Visit Report Normal [facility] Platelet countOrdered By: Flores Zamora on 11-06-2024 Platelets (Bld) [#/Vol] 212 10*3/uL 150-450 [facility] Potassium (Unsp spec) [Mass/ Vol]Ordered By: Russ Zamora on 11-06-2024 Potassium [Moles/Vol] 4.8 mmol/L 3.3-5.1 [facility] Potassium measurement (mass/ volume)Ordered By: Russ Zamora on 11-06-2024 Potassium (Unsp spec) [Mass/Vol] 4.8 mmol/L 3.3-5.1 [facility] RBC Auto (Bld) [#/Vol]Ordere d By: Russ Zamora on 11-06-2024 RBC (Bld) [#/Vol] 3.91 10*6/uL Low 4.6-6.2 [facility] Serum creatinine measurement (mass/volume)Ordered By: Russ Zamora on 11-06-2024 Creatinine [Mass/Vol] 1.87 mg/dL High 0.70-1.20 [facility] Serum globulin measurementOr dered By: Russ Zamora on 11-06-2024 Globulin (S) [Mass/Vol] 4.1 g/dL 2.2-4.2 [facility] Serum glucose measurement (m ass/volume)Ordered By: Russ Zamora on 11-06-2024 Glucose [Mass/Vol] 132 mg/dL High 70-99 [facility] Serum or plasma alanine ortiz otransferase (ALT) measurementOrdered By: Russ Zamora on 11-06-2024 ALT [Catalytic activity/Vol] 10 U/L <47 [facility] Serum or plasma albumin kingsley urement (mass/volume)Ordered By: Russ Zamora on 11-06-2024 Albumin [Mass/Vol] 3.8 g/dL 3.4-4.8 [facility] Serum or plasma albumin/glob ulin mass ratioOrdered By: Russ Zamora on 11-06-2024 Albumin/Globulin [Mass ratio] 0.9 {ratio} 0.9-2.4 [facility] Serum or plasma alkaline roosevelt sphatase measurementOrdered By: Russ Zamora on 11-06-2024 ALP [Catalytic activity/Vol] 72 U/L 40-129 [facility] Serum or plasma calcium kingsley urement (mass/volume)Ordered By: Russ Zamora on 11-06-2024 Calcium [Mass/Vol] 9.1 mg/dL 7.6-11.0 [facility] Serum or plasma urea nitroge n measurement (mass/volume)Ordered By: Russ Zamora on 11-06-2024 Urea nitrogen [Mass/Vol] 36 mg/dL High 4-19 [facility] Sodium levelOrdered By: Esau Zamora on 11-06-2024 Sodium [Moles/Vol] 140 mmol/L 133-145 [facility] Total proteinOrdered By: Frantz Zamora on 11-06-2024 Protein [Mass/Vol] 7.9 g/dL 5.9-8.4 [facility] White blood cell (WBC) count Ordered By: Russ Zamora on 11-06-2024 WBC (Bld) [#/Vol] 10.1 10*3/uL 4.4-11.0 [facility] CREATININE FINGERSTICKon Creatinine [Mass/Vol] 1.5 mg/dL High 0.70-1.30 [facility] Comment on above: Performed By: #### L 9100.0200 ####[facility] [address] [place], [place], [address] GFR/1.73 sq M.predicted among non-blacks MDRD (S/P/Bld) [Vol rate/Area] 48.0000 mL/min/{1.73_m2} Low >60 [facility] Comment on above: Performed By: #### L 9100.0200 ####[facility] [address] [place], [place], [address] CT Chest AND Abd W/ Contrast on 10-30-2024 CT Chest AND Abd W/ Contrast Normal [facility] Creatinine measurement at be dsideOrdered By: Russ Zamora on 10-30-2024 Creatinine [Mass/Vol] 1.5 mg/dL High 0.70-1.30 [facility] EGFROrdered By: Russ Zamora on 10-30-2024 GFR/1.73 sq M.predicted among non-blacks MDRD (S/P/Bld) [Vol rate/Area] 48.0000 mL/min/{1.73_m2} Low >60 [facility] Pulmonary Visit Reporton Pulmonary Visit Report Normal [facility] Hemoglobin A1con 10-21-2024 HbA1c (Bld) [Mass fraction] 6.6 % Normal <=5.6 [facility] Comment on above: Performed By: #### L 501.9985 ####[facility] [address] [place], [address] Hemoglobin A1c percentageOrd ered By: Tonio Fajardo on 10-20-2024 HbA1c (Bld) [Mass fraction] 6.6 % >5.7 [facility] 6 Minute Walk Teston 28-2 025 6 Minute Walk Test Normal [facility] Absolute neutrophil countOrd ered By: Leslie Arriaga on 09-25-2024 Neutrophils (Bld) [#/Vol] 6.7 10*3/uL 2.0-7.7 [facility] BNP (brain natriuretic pepti de measurement)Ordered By: Leslie Arriaga on 09-25-2024 Natriuretic peptide B (Bld) [Mass/Vol] 183.7 pg/mL High 0-100 [facility] BNP,B-Type NATRIURETIC PEPTI Adrienne 09-25-2024 Natriuretic peptide B (Bld) [Mass/Vol] 183.7 pg/mL High 0-100 [facility] Comment on above: Performed By: #### L 503.6620, L500.2500, L100.0100 ####[facility] [address] [place], [address] Basic Metabolic Profile (BMP )on 09-25-2024 BUN/CRE 15.4 RATIO Normal 10-20 [facility] Comment on above: Performed By: #### L 503.6620, L500.2500, L100.0100 ####[facility] [address] [place], [address] CA,Total 9.1 mg/dL Normal 8.5-10.1 [facility] Comment on above: Performed By: #### L 503.6620, L500.2500, L100.0100 ####[facility] [address] [place], [address] Chloride [Moles/Vol] 105 mmol/L Normal 98-107 [facility] Comment on above: Performed By: #### L 503.6620, L500.2500, L100.0100 ####[facility] [address] [place], [address] CO2 [Moles/Vol] 28.0 mmol/L Normal 21.0-32.0 [facility] Comment on above: Performed By: #### L 503.6620, L500.2500, L100.0100 ####[facility] [address] [place], [address] Creatinine [Mass/Vol] 2.21 mg/dL High 0.70-1.30 [facility] Comment on above: Result Comment: The validity of the calculated GFR GFRAA in patients over70 years has not been determined. Clinical correlation isessential. Performed By: #### L 503.6620, L500.2500, L100.0100 ####[facility] [address] [place], [address] EST GFR - AA 37 mL/min Low >60 [facility] Comment on above: Result Comment: Afri can Norwegian GFR Calc Performed By: #### L 503.6620, L500.2500, L100.0100 ####[facility] [address] [place], [address] GAP 5 Normal 5-15 [facility] Comment on above: Performed By: #### L 503.6620, L500.2500, L100.0100 ####[facility] [address] [place], [address] GFR/1.73 sq M.predicted among non-blacks MDRD (S/P/Bld) [Vol rate/Area] 31 mL/min/{1.73_m2} Low >60 [facility] Comment on above: Result Comment: Non- GFR Calc Performed By: #### L 503.6620, L500.2500, L100.0100 ####[facility] [address] [place], [address] Glucose [Mass/Vol] 127 mg/dL High 74-106 [facility] Comment on above: Result Comment: Fast ing Glucose result greater than or equal to 126 mg/dLsuggests DIABETES MELLITUS per A.D.A. criteria. Performed By: #### L 503.6620, L500.2500, L100.0100 ####[facility] [address] [place], [address] Potassium [Moles/Vol] 4.3 mmol/L Normal 3.5-5.1 [facility] Comment on above: Performed By: #### L 503.6620, L500.2500, L100.0100 ####[facility] [address] [place], [address] Sodium [Moles/Vol] 138 mmol/L Normal 136-145 [facility] Comment on above: Performed By: #### L 503.6620, L500.2500, L100.0100 ####[facility] [address] [place], [address] Urea nitrogen [Mass/Vol] 34 mg/dL High 7-18 [facility] Comment on above: Performed By: #### L 503.6620, L500.2500, L100.0100 ####[facility] [address] [place], [address] Basophil percentageOrdered B y: Leslie Arriaga on 09-25-2024 Basophils/100 WBC (Bld) 0.6 % 0-1 [facility] Blood urea nitrogen (BUN)/cr eatinine ratioOrdered By: Leslie Arriaga on 09-25-2024 Urea nitrogen/Creatinine [Mass ratio] 15.4 mg/mg 10-20 [facility] CBC W/Diff, Automatedon Absolute Lymph 0.91 X10 3/uL Normal 0.83-4.51 [facility] Comment on above: Performed By: #### L 503.6620, L500.2500, L100.0100 ####[facility] [address] [place], [address] Absolute Neut 6.7 X10 3/uL Normal 2.0-7.7 [facility] Comment on above: Performed By: #### L 503.6620, L500.2500, L100.0100 ####[facility] [address] [place], [address] Basophils/100 WBC (Bld) 0.6 % Normal 0-1 [facility] Comment on above: Performed By: #### L 503.6620, L500.2500, L100.0100 ####[facility] [address] [place], [address] Eosinophils/100 WBC (Bld) 1.1 % Normal 0-5 [facility] Comment on above: Performed By: #### L 503.6620, L500.2500, L100.0100 ####[facility] [address] [place], [address] Erythrocyte distribution width (RBC) [Ratio] 16.2 % High 11.6-14.6 [facility] Comment on above: Performed By: #### L 503.6620, L500.2500, L100.0100 ####[facility] [address] [place], [address] Hematocrit (Bld) [Volume fraction] 36.0 % Low 40-54 [facility] Comment on above: Performed By: #### L 503.6620, L500.2500, L100.0100 ####[facility] [address] [place], [address] Hemoglobin (Bld) [Mass/Vol] 11.1 g/dL Low 13.0-16.5 [facility] Comment on above: Performed By: #### L 503.6620, L500.2500, L100.0100 ####[facility] [address] [place], [address] IG% 0.700 Normal 0.0-0.9 [facility] Comment on above: Result Comment: IG% - Immature Granulocytes (promyelocytes, myelocytes andmetamyelocytes) > 1% indicates that a LEFT SHIFT is Present. Performed By: #### L 503.6620, L500.2500, L100.0100 ####[facility] [address] [place], [address] Lymphocytes/100 WBC (Bld) 10.4 % Low 19-41 [facility] Comment on above: Performed By: #### L 503.6620, L500.2500, L100.0100 ####[facility] [address] [place], [address] MCH (RBC) [Entitic mass] 27.7 pg Normal 27.0-32.0 [facility] Comment on above: Performed By: #### L 503.6620, L500.2500, L100.0100 ####[facility] [address] [place], [address] MCHC (RBC) [Mass/Vol] 30.8 g/dL Low 32-36 [facility] Comment on above: Performed By: #### L 503.6620, L500.2500, L100.0100 ####[facility] [address] [place], [address] MCV (RBC) [Entitic vol] 89.8 fL Normal 80-94 [facility] Comment on above: Performed By: #### L 503.6620, L500.2500, L100.0100 ####[facility] [address] [place], [address] Monocytes/100 WBC (Bld) 10.3 % High 0-10 [facility] Comment on above: Performed By: #### L 503.6620, L500.2500, L100.0100 ####[facility] [address] [place], [address] Neutrophils/100 WBC (Bld) 76.9 % High 47-70 [facility] Comment on above: Performed By: #### L 503.6620, L500.2500, L100.0100 ####[facility] [address] [place], [address] Nucleated RBC (Bld) [#/Vol] 0 10*3/uL Normal 0-5 [facility] Comment on above: Performed By: #### L 503.6620, L500.2500, L100.0100 ####[facility] [address] [place], [address] Platelet mean volume (Bld) [Entitic vol] 10.5 fL Normal 6.2-12.0 [facility] Comment on above: Performed By: #### L 503.6620, L500.2500, L100.0100 ####[facility] [address] [place], [address] Platelets (Bld) [#/Vol] 256 10*3/uL Normal 150-450 [facility] Comment on above: Performed By: #### L 503.6620, L500.2500, L100.0100 ####[facility] [address] [place], [address] RBC (Bld) [#/Vol] 4.01 10*6/uL Low 4.6-6.2 [facility] Comment on above: Performed By: #### L 503.6620, L500.2500, L100.0100 ####[facility] [address] [place], [address] RDW SD 52.7 fl High 35.1-43.9 [facility] Comment on above: Performed By: #### L 503.6620, L500.2500, L100.0100 ####[facility] [address] [place], [place], [address] WBC (Bld) [#/Vol] 8.7 10*3/uL Normal 4.4-11.0 [facility] Comment on above: Performed By: #### L 503.6603, L500.2500, L100.0100 ####[facility] [address] [place], [place], [address] Carbon dioxide measurementOr dered By: Leslie Arriaga on 09-25-2024 CO2 [Moles/Vol] 28.0 mmol/L 21.0-32.0 [facility] Cardiology Visit Reporton Cardiology Visit Report Normal [facility] Chest PA and Lateralon 09-25 Chest PA and Lateral Normal [facility] Chloride measurementOrdered By: Leslie Arriaga on 09-25-2024 Chloride [Moles/Vol] 105 mmol/L 98-107 [facility] Eosinophil percentageOrdered By: Leslie Arriaga on 09-25-2024 Eosinophils/100 WBC (Bld) 1.1 % 0-5 [facility] Erythrocyte distribution wid th ratioOrdered By: Leslie Arriaga on 09-25-2024 Erythrocyte distribution width (RBC) [Ratio] 16.2 % High 11.6-14.6 [facility] Erythrocyte distribution wid th standard deviationOrdered By: Leslie Arriaga on 09-25-2024 Erythrocyte distribution width (RBC) [Entitic vol] 52.7 fL High 35.1-43.9 [facility] Estimated glomerular filtrat ion rate (GFR) AmericanOrdered By: Leslie Arriaga on 09-25-2024 Estimated GFR (MDRD) Amer 37 mL/min Low >60 [facility] Comment on above: GFR Calc Glomerular filtration rate ( GFR) estimationOrdered By: Leslie Arriaga on 09-25-2024 Estimated GFR (MDRD) Non-Af Amer 31 mL/min Low >60 [facility] Comment on above: Non- GFR Calc Glucose measurementOrdered B y: Leslie Arriaga on 09-25-2024 Glucose [Mass/Vol] 127 mg/dL High 74-106 [facility] Comment on above: Fasting Glucose resu lt greater than or equal to 126 mg/dL suggests DIABETES MELLITUS per A.D.A. criteria. Hematocrit Auto (Bld) [Volum e fraction]Ordered By: Leslie Arriaga on 09-25-2024 Hematocrit (Bld) [Volume fraction] 36.0 % Low 40-54 [facility] Hemoglobin measurementOrdere d By: Leslie Arriaga on 09-25-2024 Hemoglobin (Bld) [Mass/Vol] 11.1 g/dL Low 13.0-16.5 [facility] Immature granulocytes/100 WB C Auto (Bld)Ordered By: Leslie Arriaga on 09-25-2024 Immature granulocytes/100 WBC (Bld) 0.700 % 0.0-0.9 [facility] Comment on above: IG% - Immature Granu locytes (promyelocytes, myelocytes and metamyelocytes) > 1% indicates that a LEFT SHIFT is Present. Lymphocytes Auto (Unsp spec) [#/Vol]Ordered By: Leslie Arriaga on 09-25-2024 Lymphocytes (Bld) [#/Vol] 0.91 10*3/uL 0.83-4.51 [facility] Lymphocytes/100 WBC Auto (Un sp spec)Ordered By: Leslie Arriaga on 09-25-2024 Lymphocytes/100 WBC (Bld) 10.4 % Low 19-41 [facility] MCV (mean corpuscular volume ) determinationOrdered By: Leslie Arriaga on 09-25-2024 MCV (RBC) [Entitic vol] 89.8 fL 80-94 [facility] Mean corpuscular hemoglobin (MCH) determinationOrdered By: Leslie Arriaga on 09-25-2024 MCH (RBC) [Entitic mass] 27.7 pg 27.0-32.0 [facility] Mean corpuscular hemoglobin concentration (MCHC) determinationOrdered By: Leslie Arriaga on 09-25-2024 MCHC (RBC) [Mass/Vol] 30.8 g/dL Low 32-36 [facility] Mean platelet volume determi nationOrdered By: Leslie Arriaga on 09-25-2024 Platelet mean volume (Bld) [Entitic vol] 10.5 fL 6.2-12.0 [facility] Monocyte percentageOrdered B y: Leslie Arriaga on 09-25-2024 Monocytes/100 WBC (Bld) 10.3 % High 0-10 [facility] Neutrophil percentageOrdered By: Leslie Arriaga on 09-25-2024 Neutrophils/100 WBC (Bld) 76.9 % High 47-70 [facility] Nucleated red blood cell per centageOrdered By: Leslie Arriaga on 09-25-2024 Nucleated RBC/100 WBC (Bld) [Ratio] 0 % 0-5 [facility] Platelet countOrdered By: Linsey Arriaga on 09-25-2024 Platelets (Bld) [#/Vol] 256 10*3/uL 150-450 [facility] Potassium measurementOrdered By: Leslie Arriaga on 09-25-2024 Potassium [Moles/Vol] 4.3 mmol/L 3.5-5.1 [facility] RBC Auto (Bld) [#/Vol]Ordere d By: Leslie Arriaga on 09-25-2024 RBC (Bld) [#/Vol] 4.01 10*6/uL Low 4.6-6.2 [facility] Serum anion gap measurementO rdered By: Leslie Arriaga on 09-25-2024 Anion gap [Moles/Vol] 5 mmol/L 5-15 [facility] Serum or plasma calcium kingsley urement (mass/volume)Ordered By: Leslie Arriaga on 09-25-2024 Calcium [Mass/Vol] 9.1 mg/dL 8.5-10.1 [facility] Serum or plasma creatinine m easurement (mass/volume)Ordered By: Leslie Arraiga on 09-25-2024 Creatinine [Mass/Vol] 2.21 mg/dL High 0.70-1.30 [facility] Comment on above: The validity of the calculated GFR & GFRAA in patients over 70 years has not been determined. Clinical correlation is essential. Serum or plasma urea nitroge n measurement (mass/volume)Ordered By: Leslie Arriaga on 09-25-2024 Urea nitrogen [Mass/Vol] 34 mg/dL High 7-18 [facility] Sodium levelOrdered By: Brian Arriaga on 09-25-2024 Sodium [Moles/Vol] 138 mmol/L 136-145 [facility] White blood cell (WBC) count Ordered By: Leslie Arriaga on 09-25-2024 WBC (Bld) [#/Vol] 8.7 10*3/uL 4.4-11.0 [facility] Culture, Fungus 8482on 08-04 CUF Normal [facility] Comment on above: Performed By: #### M 600.2000, M100.4001, M100.2000, M100.3000 ####[facility] [facility] [address] [place], [address] Culture, Anaerobic Any Sourc talat 07-09-2024 CUAN Prevotella and Porphyromonas species are generally SUSCEPTIBLE to Cefoxitin, Chloramphenicol, and Metronidazole and are usually RESISTANT to Penicillin. Prevotella oralis Beta Lactamase-Reportable Positive [facility] Comment on above: Performed By: #### M 600.2000, M100.4001, M100.2000, M100.3000 ####[facility] [address] [place], [address] Wound Cultureon 07-05-2024 WC Normal [facility] Comment on above: Performed By: #### M 600.2000, M100.4001, M100.2000, M100.3000 ####[facility] [address] [place], [address] Gram Stainon 07-04-2024 GS Positive [facility] Comment on above: Performed By: #### M 600.2000, M100.4001, M100.2000, M100.3000 ####[facility] [address] [place], [address] Bacteria identified Anaer cx Nom (Unsp spec)Ordered By: Joaquim Suárez on 07-03-2024 Anaerobic Culture Prevotella oralis Abnormal [facility] Fungus identified Cx Nom (Un sp spec)Ordered By: Joaquim Suárez on 07-03-2024 Fungal Culture Ann-Marie parapsilosis Abnormal [facility] Gram stainOrdered By: Bladimir Suárez on 07-03-2024 Microscopic observation Gram stain Nom (Unsp spec) [facility] Routine wound cultureOrdered By: Joaquim Suárez on 07-03-2024 Wound Culture Staphylococcus pseudintermediu Abnormal [facility] Lower Ext Art Exam w/o Exerc soco 06-17-2024 Lower Ext Art Exam w/o Exercis Normal [facility] Venous Duplex US - Hi Extre mon 06-17-2024 Venous Duplex US - Hi Extrem Normal [facility] CBC W/Diff, Automatedon 04-20 Absolute Lymph 0.94 X10 3/uL Normal 0.83-4.51 [facility] Comment on above: Performed By: #### L 100.0100, L504.2610, L500.4050 ####[facility] [address] [place], [address] Absolute Neut 5.7 X10 3/uL Normal 2.0-7.7 [facility] Comment on above: Performed By: #### L 100.0100, L504.2610, L500.4050 ####[facility] [address] [place], [address] Basophils/100 WBC (Bld) 0.6 % Normal 0-1 [facility] Comment on above: Performed By: #### L 100.0100, L504.2610, L500.4050 ####[facility] [address] [place], [address] Eosinophils/100 WBC (Bld) 2.5 % Normal 0-5 [facility] Comment on above: Performed By: #### L 100.0100, L504.2610, L500.4050 ####[facility] [address] [place], [address] Erythrocyte distribution width (RBC) [Ratio] 16.3 % High 11.6-14.6 [facility] Comment on above: Performed By: #### L 100.0100, L504.2610, L500.4050 ####[facility] [address] [place], [address] Hematocrit (Bld) [Volume fraction] 36.9 % Low 40-54 [facility] Comment on above: Performed By: #### L 100.0100, L504.2610, L500.4050 ####[facility] [address] [place], [address] Hemoglobin (Bld) [Mass/Vol] 11.3 g/dL Low 13.0-16.5 [facility] Comment on above: Performed By: #### L 100.0100, L504.2610, L500.4050 ####[facility] [address] [place], [address] IG% 1.400 High 0.0-0.9 [facility] Comment on above: Result Comment: IG% - Immature Granulocytes (promyelocytes, myelocytes andmetamyelocytes) > 1% indicates that a LEFT SHIFT is Present. Performed By: #### L 100.0100, L504.2610, L500.4050 ####[facility] [address] [place], [address] Lymphocytes/100 WBC (Bld) 11.8 % Low 19-41 [facility] Comment on above: Performed By: #### L 100.0100, L504.2610, L500.4050 ####[facility] [address] [place], [address] MCH (RBC) [Entitic mass] 27.2 pg Normal 27.0-32.0 [facility] Comment on above: Performed By: #### L 100.0100, L504.2610, L500.4050 ####[facility] [address] [place], [address] MCHC (RBC) [Mass/Vol] 30.6 g/dL Low 32-36 [facility] Comment on above: Performed By: #### L 100.0100, L504.2610, L500.4050 ####[facility] [address] [place], [address] MCV (RBC) [Entitic vol] 88.7 fL Normal 80-94 [facility] Comment on above: Performed By: #### L 100.0100, L504.2610, L500.4050 ####[facility] [address] [place], [address] Monocytes/100 WBC (Bld) 11.6 % High 0-10 [facility] Comment on above: Performed By: #### L 100.0100, L504.2610, L500.4050 ####[facility] [address] [place], [address] Neutrophils/100 WBC (Bld) 72.1 % High 47-70 [facility] Comment on above: Performed By: #### L 100.0100, L504.2610, L500.4050 ####[facility] [address] [place], [address] Nucleated RBC (Bld) [#/Vol] 0 10*3/uL Normal 0-5 [facility] Comment on above: Performed By: #### L 100.0100, L504.2610, L500.4050 ####[facility] [address] [place], [address] Platelet mean volume (Bld) [Entitic vol] 9.9 fL Normal 6.2-12.0 [facility] Comment on above: Performed By: #### L 100.0100, L504.2610, L500.4050 ####[facility] [address] [place], [address] Platelets (Bld) [#/Vol] 222 10*3/uL Normal 150-450 [facility] Comment on above: Performed By: #### L 100.0100, L504.2610, L500.4050 ####[facility] [address] [place], [address] RBC (Bld) [#/Vol] 4.16 10*6/uL Low 4.6-6.2 [facility] Comment on above: Performed By: #### L 100.0100, L504.2610, L500.4050 ####[facility] [address] [place], [address] RDW SD 53.2 fl High 35.1-43.9 [facility] Comment on above: Performed By: #### L 100.0100, L504.2610, L500.4050 ####[facility] [address] [place], [address] WBC (Bld) [#/Vol] 8.0 10*3/uL Normal 4.4-11.0 [facility] Comment on above: Performed By: #### L 100.0100, L504.2610, L500.4050 ####[facility] [address] [place], [address] Comprehensive Metabolic [facility] 05-05-2024 Albumin [Mass/Vol] 3.1 g/dL Low 3.2-5.0 [facility] Comment on above: Order Comment: 1 Performed By: #### L 100.0100, L504.2610, L500.4050 ####[facility] [address] [place], [address] Albumin/Globulin [Mass ratio] 0.6 {ratio} Low 0.9-2.4 [facility] Comment on above: Order Comment: 1 Performed By: #### L 100.0100, L504.2610, L500.4050 ####[facility] [address] [place], [address] ALK P 60 U/L Normal 45-117 [facility] Comment on above: Order Comment: 1 Performed By: #### L 100.0100, L504.2610, L500.4050 ####[facility] [address] [place], [address] ALT [Catalytic activity/Vol] 15 U/L Low 16-61 [facility] Comment on above: Order Comment: 1 Performed By: #### L 100.0100, L504.2610, L500.4050 ####[facility] [address] [place], [address] AST [Catalytic activity/Vol] 11 U/L Low 15-37 [facility] Comment on above: Order Comment: 1 Performed By: #### L 100.0100, L504.2610, L500.4050 ####[facility] [address] [place], [address] Bilirubin [Mass/Vol] 0.40 mg/dL Normal 0.20-1.00 [facility] Comment on above: Order Comment: 1 Result Comment: For patients on eltrombopag therapy, use of Dimension [place] TBIL is not recommended. Performed By: #### L 100.0100, L504.2610, L500.4050 ####[facility] [address] [place], [address] BUN/CRE 20.3 RATIO High 10-20 [facility] Comment on above: Order Comment: 1 Performed By: #### L 100.0100, L504.2610, L500.4050 ####[facility] [address] [place], [address] CA,Total 9.3 mg/dL Normal 8.5-10.1 [facility] Comment on above: Order Comment: 1 Performed By: #### L 100.0100, L504.2610, L500.4050 ####[facility] [address] [place], [address] Chloride [Moles/Vol] 104 mmol/L Normal 98-107 [facility] Comment on above: Order Comment: 1 Performed By: #### L 100.0100, L504.2610, L500.4050 ####[facility] [address] [place], [address] CO2 [Moles/Vol] 27.0 mmol/L Normal 21.0-32.0 [facility] Comment on above: Order Comment: 1 Performed By: #### L 100.0100, L504.2610, L500.4050 ####[facility] [address] [place], [address] Creatinine [Mass/Vol] 2.17 mg/dL High 0.70-1.30 [facility] Comment on above: Order Comment: 1 Result Comment: The validity of the calculated GFR GFRAA in patients over70 years has not been determined. Clinical correlation isessential. Performed By: #### L 100.0100, L504.2610, L500.4050 ####[facility] [address] [place], [address] ECRCL 27.63 ml/min Normal [facility] Comment on above: Order Comment: 1 Performed By: #### L 100.0100, L504.2610, L500.4050 ####[facility] [address] [place], [address] EST GFR - AA 38 mL/min Low >60 [facility] Comment on above: Order Comment: 1 Result Comment: Afri can Norwegian GFR Calc Performed By: #### L 100.0100, L504.2610, L500.4050 ####[facility] [address] [place], [address] GAP 3 Low 5-15 [facility] Comment on above: Order Comment: 1 Performed By: #### L 100.0100, L504.2610, L500.4050 ####[facility] [address] [place], [address] GFR/1.73 sq M.predicted among non-blacks MDRD (S/P/Bld) [Vol rate/Area] 31 mL/min/{1.73_m2} Low >60 [facility] Comment on above: Order Comment: 1 Result Comment: Non- GFR Calc Performed By: #### L 100.0100, L504.2610, L500.4050 ####[facility] [address] [place], [address] Globulin (S) [Mass/Vol] 4.9 g/dL High 2.2-4.2 [facility] Comment on above: Order Comment: 1 Performed By: #### L 100.0100, L504.2610, L500.4050 ####[facility] [address] [place], [address] Glucose [Mass/Vol] 130 mg/dL High 74-106 [facility] Comment on above: Order Comment: 1 Result Comment: Fast ing Glucose result greater than or equal to 126 mg/dLsuggests DIABETES MELLITUS per A.D.A. criteria. Performed By: #### L 100.0100, L504.2610, L500.4050 ####[facility] [address] [place], [address] Potassium [Moles/Vol] 4.8 mmol/L Normal 3.5-5.1 [facility] Comment on above: Order Comment: 1 Performed By: #### L 100.0100, L504.2610, L500.4050 ####[facility] [address] [place], [address] Sodium [Moles/Vol] 134 mmol/L Low 136-145 [facility] Comment on above: Order Comment: 1 Performed By: #### L 100.0100, L504.2610, L500.4050 ####[facility] [address] [place], [address] T PROT 8.0 g/dL Normal 6.4-8.2 [facility] Comment on above: Order Comment: 1 Performed By: #### L 100.0100, L504.2610, L500.4050 ####[facility] [address] [place], [address] Urea nitrogen [Mass/Vol] 44 mg/dL High 7-18 [facility] Comment on above: Order Comment: 1 Performed By: #### L 100.0100, L504.2610, L500.4050 ####[facility] [address] [place], [address] Estimated glomerular filtrat ion rate (GFR) AmericanOrdered By: Russ Zamora on 05-05-2024 Estimated GFR (MDRD) Amer 38 mL/min Low >60 [facility] Comment on above: GFR Calc LDHon 05-05-2024 LDH 126 U/L Normal 87-241 [facility] Comment on above: Order Comment: 1 Performed By: #### L 100.0100, L504.2610, L500.4050 ####[facility] [address] [place], [address] Oncology Visit Reporton 04-20 Oncology Visit Report Normal [facility] CREATININE FINGERSTICKon Creatinine [Mass/Vol] 1.4 mg/dL High 0.70-1.30 [facility] Comment on above: Performed By: #### L 9100.0200 ####[facility] [address] [place], [address] GFR/1.73 sq M.predicted among non-blacks MDRD (S/P/Bld) [Vol rate/Area] 50.0000 mL/min/{1.73_m2} Low >60 [facility] Comment on above: Performed By: #### L 9100.0200 ####[facility] [address] [place], [address] CT Chest AND Abd W/ Contrast on 04-28-2024 CT Chest AND Abd W/ Contrast Normal [facility] Miscellaneous procedureOrder ed By: Russ Zamora on 01-28-2024 Miscellaneous Test See comment [facility] Comment on above: Sent directly to [facility] per ordering physician. Bacteria identified Cx Nom ( Wound)Ordered By: Joaquim Suárez on 12-24-2023 Wound Culture Staphylococcus pseudintermediu [facility] Wound Culture Enterococcus faecalis [facility] Wound Culture Streptococcus pyogenes [facility] Gram stain for investigation of transfusion reactionOrdered By: Joaquim Suárez on 12-24-2023 Microscopic observation Gram stain Nom (Unsp spec) [facility] Absolute lymphocyte countOrd ered By: Russ Zamora on 11-06-2023 Lymphocytes Auto (Unsp spec) [#/Vol] 0.95 10*3/uL 0.83-4.51 [facility] Addendum DocumentOrdered By: Russ Zamora on 11-06-2023 Serum Immunofixation Comments Comment . [facility] Comment on above: Protein electrophore sis scan will follow via computer,mail, or lobsterman delivery. Albumin Elph [Mass/Vol]Order ed By: Russ Zamora on 11-06-2023 Albumin [Mass/Vol] 3.2 g/dL 2.9-4.4 [facility] Alpha 1 globulin Elph [Mass/ Vol]Ordered By: Russ Zamora on 11-06-2023 Jjctx-1-Lhzrpuddx (PILY) 0.4 g/dL 0.0-0.4 [facility] Rofmy-2-Xfcdgxour (PIYL) 1.3 g/dL High 0.4-1.0 [facility] Automated lymphocyte count a s percentage of total leukocytesOrdered By: Russ Zamora on 11-06-2023 Lymphocytes/100 WBC Auto (Unsp spec) 10.5 % 19-41 [facility] Basophil percentageOrdered B y: Russ Zamora on 11-06-2023 Basophils/100 WBC (Bld) 0.6 % 0-1 [facility] Bilirubin [Mass/Vol] 0.30 mg/dL 0.20-1.00 [facility] Comment on above: For patients on eltr ombopag therapy, use of Dimension [place] TBIL is not recommended. Chloride [Moles/Vol] 105 mmol/L 98-107 [facility] Eosinophils/100 WBC (Bld) 2.1 % 0-5 [facility] Glucose [Mass/Vol] 106 mg/dL 74-106 [facility] Comment on above: Fasting Glucose resu lt from 100 to 125 mg/dL suggests IMPAIRED HOMEOSTASIS per A.D.A. criteria. Hemoglobin (Bld) [Mass/Vol] 11.5 g/dL 13.0-16.5 [facility] LDH [Catalytic activity/Vol] 170 U/L 87-241 [facility] Monocytes/100 WBC (Bld) 10.7 % 0-10 [facility] Neutrophils (Bld) [#/Vol] 6.8 10*3/uL 2.0-7.7 [facility] Neutrophils/100 WBC (Bld) 75.2 % 47-70 [facility] Potassium [Moles/Vol] 4.3 mmol/L 3.5-5.1 [facility] Protein [Mass/Vol] 8.2 g/dL 6.4-8.2 [facility] Sodium [Moles/Vol] 135 mmol/L 136-145 [facility] WBC (Bld) [#/Vol] 9.0 10*3/uL 4.4-11.0 [facility] Beta globulin Elph [Mass/Vol ]Ordered By: Russ Zamora on 11-06-2023 Beta-Globulins (PILY) 1.0 g/dL 0.7-1.3 [facility] C-reactive protein measureme nt by high sensitivity methodOrdered By: Russ Zamora on 11-06-2023 C-Reactive Protein Extended Range 22.10 mg/L High 0.0-3.0 [facility] Comment on above: C-Reactive Protein ( CRP) provides useful information for thediagnosis, therapy and monitoring of inflammatory processesand associated diseases. For the evaluation of Relative Riskfor Cardiovascular Disease, a High Sensitivity CRP (HSCRP)should be ordered. C-reactive protein measurement by high sensitivity method 22.10 mg/L High 0.0-3.0 [facility] Comment on above: C-Reactive Protein ( CRP) provides useful information for thediagnosis, therapy and monitoring of inflammatory processesand associated diseases. For the evaluation of Relative Riskfor Cardiovascular Disease, a High Sensitivity CRP (HSCRP)should be ordered. Determination of erythrocyte mean corpuscular volume (MCV)Ordered By: Russ Zamora on 11-06-2023 MCV (RBC) [Entitic vol] 88.0 fL 80-94 [facility] Erythrocyte distribution wid th ratioOrdered By: Russ Zamora on 11-06-2023 Erythrocyte distribution width (RBC) [Ratio] 15.5 % 11.6-14.6 [facility] Erythrocyte distribution wid th standard deviationOrdered By: Russ Zamora on 11-06-2023 Erythrocyte distribution width (RBC) [Entitic vol] 49.5 fL 35.1-43.9 [facility] Erythrocyte sedimentation ra teOrdered By: Russ Zamora on 11-06-2023 ESR (Bld) [Velocity] 21 mm/h High 0-20 [facility] Gamma globulin Elph [Mass/Vo l]Ordered By: Russ Zamora on 11-06-2023 Gamma Globulins (PILY) 1.8 g/dL 0.4-1.8 [facility] Hematocrit Auto (Bld) [Volum e fraction]Ordered By: Russ Zamora on 11-06-2023 Hematocrit (Bld) [Volume fraction] 36.8 % 40-54 [facility] Hemoglobin (Reticulocytes) [ Entitic mass]Ordered By: Russ Zamora on 11-06-2023 Reticulocyte Hemoglobin Equivalent 31.4 pg 30-35 [facility] Hemoglobin in reticulocytes (mass per reticulocyte)Ordered By: Russ Zamora 11-06-2023 Hemoglobin (Reticulocytes) [Entitic mass] 31.4 pg 30-35 [facility] IgA [Mass/Vol]Ordered By: Flores Zamora on 11-06-2023 Immunoglobulin A 311 mg/dL 61-437 [facility] IgG [Mass/Vol]Ordered By: Flores Zamora on 11-06-2023 Immunoglobulin G 1529 mg/dL 603-1613 [facility] Immature granulocytes/100 WB C Auto (Bld)Ordered By: Russ Zamora on 11-06-2023 Immature granulocytes/100 WBC (Bld) 0.900 % 0.0-0.9 [facility] Comment on above: IG% - Immature Granu locytes (promyelocytes, myelocytes and metamyelocytes) > 1% indicates that a LEFT SHIFT is Present. Immature reticulocyte fracti onOrdered By: Russ Zamora on 11-06-2023 Immature Reticulocyte Fraction 22.10 % High 3.00-15.90 [facility] Immunoglobulin M measurement Ordered By: Russ Zamora on 11-06-2023 Immunoglobulin M 157 mg/dL High 15-143 [facility] Immunoglobulin light chains. kappa [Mass/Vol]Ordered By: Russ Zamora on 11-06-2023 Free [place] Light Chains, Quant 100.3 mg/L High 3.3-19.4 [facility] Immunoglobulin light chains. kappa/Immunoglobulin light chains.lambda (S) [Mass ratio]Ordered By: Russ Zamora on 11-06-2023 Free [place]/Lambda Light Chain Ratio 1.63 0.26-1.65 [facility] Comment on above: Performed at: [address] Director: Seb Bertrand PhD, Phone: [phone] Interpretation IEP [Interp]O rdered By: Russ Zamora on 11-06-2023 Immunofixation Screen Comment . [facility] Comment on above: No monoclonality det ected. Interpretation of serum or p lasma protein pattern by immunofixation (narrative resultOrdered By: Russ Zamora on 11-06-2023 Protein Fractions Immunofixation Jose Luis [Interp] Not Observed g/dL Not Observed [facility] - Chemistry and C hemistry - challengeOrdered By: Russ Zamora on 11-06-2023 Albumin/Globulin [Mass ratio] 0.6 {ratio} 0.9-2.4 [facility] ALP [Catalytic activity/Vol] 62 U/L 45-117 [facility] ALT [Catalytic activity/Vol] 17 U/L 16-61 [facility] CO2 [Moles/Vol] 24.0 mmol/L 21.0-32.0 [facility] Urea nitrogen/Creatinine [Mass ratio] 21.9 mg/mg 10-20 [facility] - Hematology and Cell countsOrdered By: Russ Zamora on 11-06-2023 MCH (RBC) [Entitic mass] 27.5 pg 27.0-32.0 [facility] MCHC (RBC) [Mass/Vol] 31.3 g/dL 32-36 [facility] Nucleated RBC/100 WBC (Bld) [Ratio] 0 % 0-5 [facility] Platelet mean volume (Bld) [Entitic vol] 9.1 fL 6.2-12.0 [facility] Platelets (Bld) [#/Vol] 270 10*3/uL 150-450 [facility] Lambda free light chain kingsley urementOrdered By: Russ Zamora on 11-06-2023 Free Lambda Light Chains, Quant 61.5 mg/L High 5.7-26.3 [facility] No Panel InformationOrdered By: Russ Zamora on 11-06-2023 Addendum Document Comment . [facility] Comment on above: Protein electrophore sis scan will follow via computer,mail, or lobsterman delivery. Estimated Creatinine Clearance Calc 31.12 ml/min [facility] Estimated GFR (MDRD) Amer 43 mL/min >60 [facility] Comment on above: GFR Calc Estimated GFR (MDRD) Non-Af Amer 35 mL/min >60 [facility] Comment on above: Non- GFR Calc Protein Fractions Immunofixa tion Jose Luis [Interp]Ordered By: Russ Zamora on 11-06-2023 M-Arash (PILY) Not Observed g/dL Not Observed [facility] RBC Auto (Bld) [#/Vol]Ordere d By: Russ Zamora on 11-06-2023 RBC (Bld) [#/Vol] 4.18 10*6/uL 4.6-6.2 [facility] Reticulocytes Auto (Bld) [#/ Vol]Ordered By: Russ Zamora on 11-06-2023 Reticulocyte Count 2.12 % High 0.5-1.5 [facility] Reticulocytes/100 RBC (Bld) 2.12 % High 0.5-1.5 [facility] Serum albumin/globulin ratio Ordered By: Russ Zamora on 11-06-2023 Albumin/Globulin (PILY) 0.8 0.7-1.7 [facility] Serum nsuyr-8-ebbabmcj measu rement by electrophoresisOrdered By: Russ Zamora on 11-06-2023 Alpha 1 globulin Elph [Mass/Vol] 0.4 g/dL 0.0-0.4 [facility] Alpha 1 globulin Elph [Mass/Vol] 1.3 g/dL High 0.4-1.0 [facility] Serum globulin measurement ( mass/volume)Ordered By: Russ Zamora on 11-06-2023 Globulin (S) [Mass/Vol] 4.4 g/dL 2.2-3.9 [facility] Serum immunoglobulin kappa l ight chains/immunoglobulin lambda light chains mass ratioOrdered By: Russ Zamora on 11-06-2023 Immunoglobulin light chains.kappa/Immunoglobu mellissa light chains.lambda (S) [Mass ratio] 1.63 0.26-1.65 [facility] Comment on above: Performed at: [address] [id number] Director: Seb Bertrand PhD, Phone: [phone] Serum or plasma IgA measurem ent (mass/volume)Ordered By: Russ Zamora on 11-06-2023 IgA [Mass/Vol] 311 mg/dL 61-437 [facility] Serum or plasma IgG measurem ent (mass/volume)Ordered By: Russ Zamora on 11-06-2023 IgG [Mass/Vol] 1529 mg/dL 603-1613 [facility] Serum or plasma beta globuli n measurement by electrophoresis (mass/volume)Ordered By: Russ Zamora on 11-06-2023 Beta globulin Elph [Mass/Vol] 1.0 g/dL 0.7-1.3 [facility] Serum or plasma calcium kingsley urement (mass/volume)Ordered By: Russ Zamora on 11-06-2023 Calcium [Mass/Vol] 9.0 mg/dL 8.5-10.1 [facility] Serum or plasma creatinine m easurement (mass/volume)Ordered By: Russ Zamora on 11-06-2023 Creatinine [Mass/Vol] 1.96 mg/dL 0.70-1.30 [facility] Comment on above: The validity of the calculated GFR & GFRAA in patients over 70 years has not been determined. Clinical correlation is essential. Serum or plasma gamma globul in measurement by electrophoresis (mass/volume)Ordered By: Russ Zamora on 11-06-2023 Gamma globulin Elph [Mass/Vol] 1.8 g/dL 0.4-1.8 [facility] Serum or plasma immunoelectr ophoresis interpretation (nominal result)Ordered By: Russ Zamora on 11-06-2023 Interpretation IEP [Interp] Comment . [facility] Comment on above: No monoclonality det ected. Serum or plasma immunoglobul in kappa light chains measurement (mass/volume)Ordered By: Russ Zamora on 11-06-2023 Immunoglobulin light chains.kappa [Mass/Vol] 100.3 mg/L High 3.3-19.4 [facility] Serum or plasma urea nitroge n measurement (mass/volume)Ordered By: Russ Zamora on 11-06-2023 Urea nitrogen [Mass/Vol] 43 mg/dL 7-18 [facility] Serum or plasma uric acid me asurement (mass/volume)Ordered By: [facility] on 11-06-2023 Urate [Mass/Vol] 6.6 mg/dL 3.5-7.2 [facility] Comment on above: The drugs N-Acetylcy steine and Metamizole may falsely depress this assay. Thin prep Papanicolaou smear with manual screeningOrdered By: Russ Zamora on 11-06-2023 Thin prep Papanicolaou smear with manual screening 3.2 g/dL 3.2-5.0 [facility] Thin prep Papanicolaou smear with manual screening 15 U/L 15-37 [facility] Thin prep Papanicolaou smear with manual screening 6 5-15 [facility] Thin prep Papanicolaou smear with manual screening 0.8 0.7-1.7 [facility] Total protein bloodOrdered B y: Russ Zamora on 11-06-2023 Protein [Mass/Vol] 7.6 g/dL 6.0-8.5 [facility] Basophil percentageOrdered B y: Russ Zamora on 10-12-2023 Creatinine [Mass/Vol] 1.5 mg/dL 0.70-1.30 [facility] Laboratory - Chemistry and C hemistry - challengeOrdered By: Russ Zamora on 10-12-2023 GFR/1.73 sq M.predicted among non-blacks MDRD (S/P/Bld) [Vol rate/Area] 49.0000 mL/min/{1.73_m2} >60 [facility] Absolute lymphocyte countOrd ered By: Leslie Arriaga on 07-26-2023 Lymphocytes Auto (Unsp spec) [#/Vol] 1.22 10*3/uL 0.83-4.51 [facility] Assessment of wrist artery p atency prior to arterial punctureOrdered By: Lorie Mart on 07-26-2023 Arterial patency Wrist artery --pre arterial puncture Positive [facility] Base excessOrdered By: Obed Mart on 07-26-2023 Base excess Calc (BldV) [Moles/Vol] -1 mmol/L -2-2 [facility] Basophil percentageOrdered B y: Leslie Arriaga on 07-26-2023 Basophils/100 WBC (Bld) 0.7 % 0-1 [facility] Chloride [Moles/Vol] 105 mmol/L 98-107 [facility] Eosinophils/100 WBC (Bld) 1.7 % 0-5 [facility] Glucose [Mass/Vol] 99 mg/dL 74-106 [facility] Neutrophils (Bld) [#/Vol] 9.0 10*3/uL 2.0-7.7 [facility] Neutrophils/100 WBC (Bld) 76.3 % 47-70 [facility] Potassium [Moles/Vol] 4.8 mmol/L 3.5-5.1 [facility] Sodium [Moles/Vol] 135 mmol/L 136-145 [facility] WBC (Bld) [#/Vol] 11.7 10*3/uL 4.4-11.0 [facility] Basophil percentageOrdered B y: Lorie Mart on 07-26-2023 Basophil percentage 24.8 mmol/L 22-26 [facility] Basophils/100 WBC (Bld) 95 % 95-99 [facility] Blood erythrocytes count (nu mber/volume)Ordered By: Leslie Arriaga on 07-26-2023 RBC (Bld) [#/Vol] 4.50 10*6/uL 4.6-6.2 [facility] Blood hemoglobin measurement (mass/volume)Ordered By: Leslie Arriaga on 07-26-2023 Hemoglobin (Bld) [Mass/Vol] 12.5 g/dL 13.0-16.5 [facility] Blood lymphocytes/100 leukoc ytesOrdered By: Leslie Arriaga on 07-26-2023 Lymphocytes/100 WBC (Bld) 10.4 % 19-41 [facility] Blood monocytes/100 leukocyt esOrdered By: Leslie Arriaga on 07-26-2023 Monocytes/100 WBC (Bld) 10.2 % 0-10 [facility] Blood platelet mean volumeOr dered By: Leslie Arriaga on 07-26-2023 Platelet mean volume (Bld) [Entitic vol] 10.6 fL 6.2-12.0 [facility] CO2 (BldA) [Partial pressure ]Ordered By: Lorie Mart on 07-26-2023 CO2 (Bld) [Partial pressure] 42.6 mm[Hg] 35-45 [facility] Determination of erythrocyte mean corpuscular volume (MCV)Ordered By: Leslie Arriaga on 07-26-2023 MCV (RBC) [Entitic vol] 87.6 fL 80-94 [facility] Hematocrit Auto (Bld) [Volum e fraction]Ordered By: Leslie Arriaga on 07-26-2023 Hematocrit (Bld) [Volume fraction] 39.4 % 40-54 [facility] Laboratory - Chemistry and C hemistry - challengeOrdered By: Leslie Arriaga on 07-26-2023 CO2 [Moles/Vol] 28.0 mmol/L 21.0-32.0 [facility] Natriuretic peptide B (Bld) [Mass/Vol] 233.5 pg/mL 0-100 [facility] Urea nitrogen/Creatinine [Mass ratio] 25.4 mg/mg 10-20 [facility] Laboratory - Hematology and Cell countsOrdered By: Leslie Arriaga on 07-26-2023 Erythrocyte distribution width (RBC) [Entitic vol] 52.0 fL 35.1-43.9 [facility] Erythrocyte distribution width (RBC) [Ratio] 16.3 % 11.6-14.6 [facility] Immature granulocytes/100 WBC (Bld) 0.700 % 0.0-0.9 [facility] Comment on above: IG% - Immature Granu locytes (promyelocytes, myelocytes and metamyelocytes) > 1% indicates that a LEFT SHIFT is Present. MCH (RBC) [Entitic mass] 27.8 pg 27.0-32.0 [facility] Nucleated RBC/100 WBC (Bld) [Ratio] 0 % 0-5 [facility] MCHC Auto (RBC) [Mass/Vol]Or dered By: Leslie Arriaga on 07-26-2023 MCHC (RBC) [Mass/Vol] 31.7 g/dL 32-36 [facility] No Panel InformationOrdered By: Leslie Arriaga on 07-26-2023 Estimated GFR (MDRD) Amer 40 mL/min >60 [facility] Comment on above: GFR Calc Estimated GFR (MDRD) Non-Af Amer 33 mL/min >60 [facility] Comment on above: Non- GFR Calc No Panel InformationOrdered By: Lorie Mart on 07-26-2023 Blood Gas Sample Site R Radial [facility] Blood Gas Specimen Type ART [facility] Blood Gas Total CO2 26 mmol/L [facility] Blood Gas Vent Mode Not entered [facility] Oxygen Delivery Device [id number] [facility] Oxygen (BldA) [Partial press ure]Ordered By: Lorie Mart on 07-26-2023 Oxygen (Bld) [Partial pressure] 77 mmHG 75-100 [facility] Platelets bldOrdered By: Markus Arriaga on 07-26-2023 Platelets (Bld) [#/Vol] 264 10*3/uL 150-450 [facility] Serum or plasma calcium [place] urement (mass/volume)Ordered By: Leslie Arriaga on 07-26-2023 Calcium [Mass/Vol] 9.3 mg/dL 8.5-10.1 [facility] Serum or plasma creatinine m easurement (mass/volume)Ordered By: Leslie Arriaga on 07-26-2023 Creatinine [Mass/Vol] 2.09 mg/dL 0.70-1.30 [facility] Comment on above: The validity of the calculated GFR & GFRAA in patients over 70 years has not been determined. Clinical correlation is essential. Serum or plasma urea nitroge n measurement (mass/volume)Ordered By: Leslie Arriaga on 07-26-2023 Urea nitrogen [Mass/Vol] 53 mg/dL 7-18 [facility] Thin prep Papanicolaou smear with manual screeningOrdered By: Leslie Arriaga on 07-26-2023 Thin prep Papanicolaou smear with manual screening 2 5-15 [facility] pH measurementOrdered By: Pj Mart on 07-26-2023 pH (Unsp spec) 7.37 [pH] 7.35-7.45 [facility] Anaerobic cultureOrdered By: Joaquim Suárez on 06-22-2023 Bacteria identified Anaer cx Nom (Unsp spec) No anaerobic bacteria isolated. [facility] Bacteria identified Cx Nom ( Wound)Ordered By: Joaquim Suárez on 06-22-2023 Wound Culture Staphylococcus epidermidis [facility] Wound Culture Corynebacterium jeikeium [facility] Fungus cultureOrdered By: Flores Suárez on 06-22-2023 Fungus identified Cx Nom (Unsp spec) [facility] Gram stain for investigation of transfusion reactionOrdered By: Joaquim Suárez on 06-22-2023 Microscopic observation Gram stain Nom (Unsp spec) [facility] Glucose Glucometer (BldC) [M ass/Vol]Ordered By: Joaquim Suárez on 06-08-2023 Glucose [Mass/Vol] 72 mg/dL 74-106 [facility] Comment on above: MANAGEMENT OF PATIEN T CARE PER NURSING PROTOCOL Absolute lymphocyte countOrd ered By: Russ Zamora on 04-17-2023 Lymphocytes Auto (Unsp spec) [#/Vol] 1.02 10*3/uL 0.83-4.51 [facility] Basophil percentageOrdered B y: Russ Zamora on 04-17-2023 Basophils/100 WBC (Bld) 0.5 % 0-1 [facility] Bilirubin [Mass/Vol] 0.30 mg/dL 0.20-1.00 [facility] Comment on above: For patients on eltr ombopag therapy, use of Dimension [place] TBIL is not recommended. Chloride [Moles/Vol] 102 mmol/L 98-107 [facility] Eosinophils/100 WBC (Bld) 2.6 % 0-5 [facility] Glucose [Mass/Vol] 209 mg/dL 74-106 [facility] Comment on above: Glucose result great er than or equal to 200 mg/dLsuggests DIABETES MELLITUS per A.D.A. criteria. LDH [Catalytic activity/Vol] 152 U/L 87-241 [facility] Neutrophils (Bld) [#/Vol] 6.0 10*3/uL 2.0-7.7 [facility] Neutrophils/100 WBC (Bld) 74.2 % 47-70 [facility] Potassium [Moles/Vol] 4.3 mmol/L 3.5-5.1 [facility] Protein [Mass/Vol] 7.8 g/dL 6.4-8.2 [facility] Sodium [Moles/Vol] 136 mmol/L 136-145 [facility] WBC (Bld) [#/Vol] 8.1 10*3/uL 4.4-11.0 [facility] Blood erythrocytes count (nu mber/volume)Ordered By: Russ Zamora on 04-17-2023 RBC (Bld) [#/Vol] 4.45 10*6/uL 4.6-6.2 [facility] Blood hemoglobin measurement (mass/volume)Ordered By: Russ Zamora on 04-17-2023 Hemoglobin (Bld) [Mass/Vol] 12.3 g/dL 13.0-16.5 [facility] Blood lymphocytes/100 leukoc ytesOrdered By: Russ Zamora on 04-17-2023 Lymphocytes/100 WBC (Bld) 12.6 % 19-41 [facility] Blood monocytes/100 leukocyt esOrdered By: Russ Zamora on 04-17-2023 Monocytes/100 WBC (Bld) 9.4 % 0-10 [facility] Blood platelet mean volumeOr dered By: Russ Zamora on 04-17-2023 Platelet mean volume (Bld) [Entitic vol] 9.5 fL 6.2-12.0 [facility] Determination of erythrocyte mean corpuscular volume (MCV)Ordered By: Russ Zamora on 04-17-2023 MCV (RBC) [Entitic vol] 89.9 fL 80-94 [facility] Hematocrit Auto (Bld) [Volum e fraction]Ordered By: Russ Zamora on 04-17-2023 Hematocrit (Bld) [Volume fraction] 40.0 % 40-54 [facility] Laboratory - Chemistry and C hemistry - challengeOrdered By: Russ Zamora on 04-17-2023 ALP [Catalytic activity/Vol] 58 U/L 45-117 [facility] ALT [Catalytic activity/Vol] 21 U/L 16-61 [facility] CO2 [Moles/Vol] 27.0 mmol/L 21.0-32.0 [facility] Globulin (S) [Mass/Vol] 4.5 g/dL 2.2-4.2 [facility] Urea nitrogen/Creatinine [Mass ratio] 20.3 mg/mg 10-20 [facility] Laboratory - Hematology and Cell countsOrdered By: Shiloh Kavita on 04-17-2023 Erythrocyte distribution width (RBC) [Entitic vol] 54.4 fL 35.1-43.9 [facility] Erythrocyte distribution width (RBC) [Ratio] 16.5 % 11.6-14.6 [facility] Immature granulocytes/100 WBC (Bld) 0.700 % 0.0-0.9 [facility] Comment on above: IG% - Immature Granu locytes (promyelocytes, myelocytes and metamyelocytes) > 1% indicates that a LEFT SHIFT is Present. MCH (RBC) [Entitic mass] 27.6 pg 27.0-32.0 [facility] Nucleated RBC/100 WBC (Bld) [Ratio] 0 % 0-5 [facility] MCHC Auto (RBC) [Mass/Vol]Or dered By: Russ Zamora on 04-17-2023 MCHC (RBC) [Mass/Vol] 30.8 g/dL 32-36 [facility] No Panel InformationOrdered By: Russ Zamora on 04-17-2023 Estimated Creatinine Clearance Calc 29.38 ml/min [facility] Estimated GFR (MDRD) Amer 45 mL/min >60 [facility] Comment on above: GFR Calc Estimated GFR (MDRD) Non-Af Amer 37 mL/min >60 [facility] Comment on above: Non- GFR Calc Platelets bldOrdered By: Frantz Zamora on 04-17-2023 Platelets (Bld) [#/Vol] 214 10*3/uL 150-450 [facility] Serum or plasma albumin [place] urement (mass/volume)Ordered By: Russ Zamora on 04-17-2023 Albumin [Mass/Vol] 3.3 g/dL 3.2-5.0 [facility] Serum or plasma albumin/glob ulin mass ratioOrdered By: Russ Zamora on 04-17-2023 Albumin/Globulin [Mass ratio] 0.7 {ratio} 0.9-2.4 [facility] Serum or plasma calcium [place] urement (mass/volume)Ordered By: Russ Zamora on 04-17-2023 Calcium [Mass/Vol] 9.1 mg/dL 8.5-10.1 [facility] Serum or plasma creatinine m easurement (mass/volume)Ordered By: Russ Zamora on 04-17-2023 Creatinine [Mass/Vol] 1.87 mg/dL 0.70-1.30 [facility] Comment on above: The validity of the calculated GFR & GFRAA in patients over 70 years has not been determined. Clinical correlation is essential. Serum or plasma urea nitroge n measurement (mass/volume)Ordered By: Russ Zamora on 04-17-2023 Urea nitrogen [Mass/Vol] 38 mg/dL 7-18 [facility] Thin prep Papanicolaou smear with manual screeningOrdered By: Russ Zamora on 04-17-2023 Thin prep Papanicolaou smear with manual screening 16 U/L 15-37 [facility] Thin prep Papanicolaou smear with manual screening 7 5-15 [facility] Basophil percentageOrdered B y: Russ Zamora on 04-10-2023 Creatinine [Mass/Vol] 1.1 mg/dL 0.70-1.30 [facility] No Panel InformationOrdered By: Russ Zamora on 04-10-2023 Bedside Estimated GFR (eGFR) > 60.0000 mL/min >60 [facility] Anaerobic cultureOrdered By: Bonny Glynn on 01-13-2023 Bacteria identified Anaer cx Nom (Unsp spec) No anaerobic bacteria isolated. [facility] Bacteria identified Cx Nom ( Wound)Ordered By: Bonny Glynn on 01-11-2023 Wound Culture Staphylococcus pseudintermediu [facility] Gram stain for investigation of transfusion reactionOrdered By: Bonny Glynn on 01-09-2023 Microscopic observation Gram stain Nom (Unsp spec) [facility] Anaerobic cultureOrdered By: Bonny Glynn on 01-08-2023 Bacteria identified Anaer cx Nom (Unsp spec) No anaerobic bacteria isolated. [facility] Bacteria identified Cx Nom ( Wound)Ordered By: Bonny Glynn on 01-08-2023 Wound Culture Staphylococcus pseudintermediu [facility] Gram stain for investigation of transfusion reactionOrdered By: Bonny Glynn on 01-08-2023 Microscopic observation Gram stain Nom (Unsp spec) [facility] Laboratory - Microbiology an d Antimicrobial susceptibilityOrdered By: Dr. Ochoa on 01-05-2023 Bacteria identified Cx Nom (Bld) No growth in 5 days. [facility] Culture, urineOrdered By: Dr Marianna Ochoa on 01-02-2023 Bacteria identified Cx Nom (U) Culture exhibits no growth. [facility] Influenza virus A and B and SARS-CoV-2 (COVID-19) Ag panel - Upper respiratory specimOrdered By: Dr. Ochoa on 12-31-2022 SARS-CoV-2 & FLU Antigen (Rapid) Influenzae A [facility] Absolute lymphocyte countOrd ered By: Dr. Ochoa on 12-30-2022 Lymphocytes Auto (Unsp spec) [#/Vol] 0.68 10*3/uL 0.83-4.51 [facility] Basophil percentageOrdered B y: Dr. Ochoa on 12-30-2022 Basophil percentage 0-5 SEEN /hpf 0-5 [facility] Basophils/100 WBC (Bld) 0.5 % 0-1 [facility] Bilirubin [Mass/Vol] 0.50 mg/dL 0.20-1.00 [facility] Comment on above: For patients on eltr ombopag therapy, use of Dimension [place] TBIL is not recommended. Chloride [Moles/Vol] 102 mmol/L 98-107 [facility] Eosinophils/100 WBC (Bld) 0.2 % 0-5 [facility] Glucose [Mass/Vol] 119 mg/dL 74-106 [facility] Comment on above: Fasting Glucose resu lt from 100 to 125 mg/dL suggests IMPAIRED HOMEOSTASIS per A.D.A. criteria. Lactate [Moles/Vol] 1.4 mmol/L 0.4-2.0 [facility] Neutrophils (Bld) [#/Vol] 8.8 10*3/uL 2.0-7.7 [facility] Neutrophils/100 WBC (Bld) 83.3 % 47-70 [facility] Potassium [Moles/Vol] 5.2 mmol/L 3.5-5.1 [facility] Protein [Mass/Vol] 8.2 g/dL 6.4-8.2 [facility] Sodium [Moles/Vol] 134 mmol/L 136-145 [facility] WBC (Bld) [#/Vol] 10.6 10*3/uL 4.4-11.0 [facility] Bilirubin Test strip Ql (U)O rdered By: Dr. Ochoa on 12-30-2022 Bilirubin Ql (U) Negative Negative [facility] Blood erythrocytes count (nu mber/volume)Ordered By: Dr. Ochoa on 12-30-2022 RBC (Bld) [#/Vol] 4.36 10*6/uL 4.6-6.2 [facility] Blood hemoglobin measurement (mass/volume)Ordered By: Dr. Ochoa on 12-30-2022 Hemoglobin (Bld) [Mass/Vol] 12.1 g/dL 13.0-16.5 [facility] Blood lymphocytes/100 leukoc ytesOrdered By: Dr. Ochoa on 12-30-2022 Lymphocytes/100 WBC (Bld) 6.4 % 19-41 [facility] Blood monocytes/100 leukocyt esOrdered By: Dr. Ochoa on 12-30-2022 Monocytes/100 WBC (Bld) 9.1 % 0-10 [facility] Blood platelet mean volumeOr dered By: Dr. Ochoa on 12-30-2022 Platelet mean volume (Bld) [Entitic vol] 10.2 fL 6.2-12.0 [facility] Culture, urineOrdered By: Chino Ochoa on 12-30-2022 Bacteria identified Cx Nom (U) Culture exhibits no growth. [facility] Determination of erythrocyte mean corpuscular volume (MCV)Ordered By: Dr. Ochoa on 12-30-2022 MCV (RBC) [Entitic vol] 87.2 fL 80-94 [facility] Hematocrit Auto (Bld) [Volum e fraction]Ordered By: Dr. Ochoa on 12-30-2022 Hematocrit (Bld) [Volume fraction] 38.0 % 40-54 [facility] INR in Blood by Coagulation assayOrdered By: Dr. Ochoa on 12-30-2022 INR Coag (Bld) [Relative time] 1.3 {INR} [facility] Influenza virus A and B and SARS-CoV-2 (COVID-19) Ag panel - Upper respiratory specimOrdered By: Chris Ochoa on 12-30-2022 SARS-CoV-2 & FLU Antigen (Rapid) Influenzae A [facility] Ketones Test strip Ql (U)Ord ered By: Dr. Ochoa on 12-30-2022 Ketones Ql (U) Negative Negative [facility] Laboratory - Chemistry and C hemistry - challengeOrdered By: Dr. Ochoa on 12-30-2022 ALP [Catalytic activity/Vol] 53 U/L 45-117 [facility] ALT [Catalytic activity/Vol] 22 U/L 16-61 [facility] CO2 [Moles/Vol] 25.0 mmol/L 21.0-32.0 [facility] Globulin (S) [Mass/Vol] 4.7 g/dL 2.2-4.2 [facility] Urea nitrogen/Creatinine [Mass ratio] 22.0 mg/mg 10-20 [facility] Laboratory - CoagulationOrde red By: Dr. Ochoa on 12-30-2022 aPTT Coag (Bld) [Time] 38.9 s 24.1-36.2 [facility] PT Coag (PPP) [Time] 15.8 s 11.7-14.9 [facility] Laboratory - Hematology and Cell countsOrdered By: Dr. Ochoa on 12-30-2022 Erythrocyte distribution width (RBC) [Entitic vol] 50.5 fL 35.1-43.9 [facility] Erythrocyte distribution width (RBC) [Ratio] 15.9 % 11.6-14.6 [facility] Immature granulocytes/100 WBC (Bld) 0.500 % 0.0-0.9 [facility] Comment on above: IG% - Immature Granu locytes (promyelocytes, myelocytes and metamyelocytes) > 1% indicates that a LEFT SHIFT is Present. MCH (RBC) [Entitic mass] 27.8 pg 27.0-32.0 [facility] Nucleated RBC/100 WBC (Bld) [Ratio] 0 % 0-5 [facility] Laboratory - Microbiology an d Antimicrobial susceptibilityOrdered By: Chris Ochoa on 12-30-2022 Bacteria identified Cx Nom (Bld) No growth in 5 days. [facility] MCHC Auto (RBC) [Mass/Vol]Or dered By: Dr. Ochoa on 12-30-2022 MCHC (RBC) [Mass/Vol] 31.8 g/dL 32-36 [facility] Mucus LM Ql (Urine sed)Order ed By: Dr. Ochoa on 12-30-2022 Mucus Ql (Urine sed) 0 SEEN /hpf [facility] Nitrite Test strip Ql (U)Ord ered By: Dr. Ochoa on 12-30-2022 Nitrite Ql (U) Negative Negative [facility] No Panel InformationOrdered By: Dr. Ochoa on 12-30-2022 Estimated Creatinine Clearance Calc 27.91 ml/min [facility] Estimated GFR (MDRD) Amer 42 mL/min >60 [facility] Comment on above: GFR Calc Estimated GFR (MDRD) Non-Af Amer 35 mL/min >60 [facility] Comment on above: Non- GFR Calc Platelets bldOrdered By: Dr. Ochoa on 12-30-2022 Platelets (Bld) [#/Vol] 210 10*3/uL 150-450 [facility] Protein Test strip Ql (U)Ord ered By: Dr. Ochoa on 12-30-2022 Protein Ql (U) 100 mg/dl Negative [facility] Serum or plasma albumin [place] urement (mass/volume)Ordered By: Dr. Ochoa on 12-30-2022 Albumin [Mass/Vol] 3.5 g/dL 3.2-5.0 [facility] Serum or plasma albumin/glob ulin mass ratioOrdered By: Dr. Ochoa on 12-30-2022 Albumin/Globulin [Mass ratio] 0.7 {ratio} 0.9-2.4 [facility] Serum or plasma calcium [place] urement (mass/volume)Ordered By: Dr. Ochoa on 12-30-2022 Calcium [Mass/Vol] 9.2 mg/dL 8.5-10.1 [facility] Serum or plasma creatinine m easurement (mass/volume)Ordered By: Dr. Ochoa on 12-30-2022 Creatinine [Mass/Vol] 2.00 mg/dL 0.70-1.30 [facility] Comment on above: The validity of the calculated GFR & GFRAA in patients over 70 years has not been determined. Clinical correlation is essential. Serum or plasma urea nitroge n measurement (mass/volume)Ordered By: Dr. Ochoa on 12-30-2022 Urea nitrogen [Mass/Vol] 44 mg/dL 7-18 [facility] Squamous epithelial cells de tection in urine sediment by light microscopyOrdered By: Dr. Ochoa on 12-30-2022 Epithelial cells.squamous LM Ql (Urine sed) 0 SEEN /hpf 0-5 [facility] Thin prep Papanicolaou smear with manual screeningOrdered By: Dr. Ochoa on 12-30-2022 Thin prep Papanicolaou smear with manual screening 22 U/L 15-37 [facility] Thin prep Papanicolaou smear with manual screening 7 5-15 [facility] Urine blood detectionOrdered By: Dr. Ochoa on 12-30-2022 RBC Ql (U) 25 /ul Negative [facility] RBC Ql (U) 0 SEEN /hpf 0-5 [facility] Urine clarityOrdered By: Dr. Ochoa on 12-30-2022 Clarity (U) Clear Clear [facility] Urine color determinationOrd ered By: Dr. Ochoa on 12-30-2022 Color (U) Yellow Yellow [facility] Urine glucose detectionOrder ed By: Dr. Ochoa on 12-30-2022 Glucose Ql (U) Normal mg/dl Normal [facility] Urine leukocyte esterase det ection by dipstickOrdered By: Dr. Ochoa on 12-30-2022 Leukocyte esterase Test strip Ql (U) 25 /ul Negative [facility] Urine pHOrdered By: Dr. Amy chowdhury on 12-30-2022 pH (U) 7.0 [pH] 5.0 - 8.0 [facility] Urine sediment bacteria coun t by microscopy (number/high power field)Ordered By: Dr. Ochoa on 12-30-2022 Bacteria LM.HPF (Urine sed) [#/Area] 0 /[HPF] None Seen [facility] Urine specific gravity measu rementOrdered By: Dr. Ochoa on 12-30-2022 Specific gravity (U) [Rel density] 1.005 1.002-1.03 0 [facility] Urobilinogen Auto test strip Ql (U)Ordered By: Dr. Ochoa on 12-30-2022 Urobilinogen Ql (U) Normal mg/dl Normal [facility] Absolute lymphocyte countOrd ered By: Dr. Zamora on 10-16-2022 Lymphocytes Auto (Unsp spec) [#/Vol] 1.25 10*3/uL 0.83-4.51 [facility] Basophil percentageOrdered B y: Dr. Zamora on 10-16-2022 Basophils/100 WBC (Bld) 0.6 % 0-1 [facility] Bilirubin [Mass/Vol] 0.30 mg/dL 0.20-1.00 [facility] Comment on above: For patients on eltr ombopag therapy, use of Dimension [place] TBIL is not recommended. Chloride [Moles/Vol] 106 mmol/L 98-107 [facility] Eosinophils/100 WBC (Bld) 1.4 % 0-5 [facility] Glucose [Mass/Vol] 225 mg/dL 74-106 [facility] Comment on above: Glucose result great er than or equal to 200 mg/dLsuggests DIABETES MELLITUS per A.D.A. criteria. LDH [Catalytic activity/Vol] 135 U/L 87-241 [facility] Neutrophils (Bld) [#/Vol] 5.1 10*3/uL 2.0-7.7 [facility] Neutrophils/100 WBC (Bld) 70.2 % 47-70 [facility] Potassium [Moles/Vol] 4.5 mmol/L 3.5-5.1 [facility] Protein [Mass/Vol] 7.8 g/dL 6.4-8.2 [facility] Sodium [Moles/Vol] 139 mmol/L 136-145 [facility] WBC (Bld) [#/Vol] 7.3 10*3/uL 4.4-11.0 [facility] Blood erythrocytes count (nu mber/volume)Ordered By: Dr. Zamora on 10-16-2022 RBC (Bld) [#/Vol] 3.94 10*6/uL 4.6-6.2 [facility] Blood hemoglobin measurement (mass/volume)Ordered By: Dr. Zamora on 10-16-2022 Hemoglobin (Bld) [Mass/Vol] 11.5 g/dL 13.0-16.5 [facility] Blood lymphocytes/100 leukoc ytesOrdered By: Dr. Zamora on 10-16-2022 Lymphocytes/100 WBC (Bld) 17.2 % 19-41 [facility] Blood monocytes/100 leukocyt esOrdered By: Dr. Zamora on 10-16-2022 Monocytes/100 WBC (Bld) 9.8 % 0-10 [facility] Blood platelet mean volumeOr dered By: Dr. Zamora on 10-16-2022 Platelet mean volume (Bld) [Entitic vol] 9.9 fL 6.2-12.0 [facility] Determination of erythrocyte mean corpuscular volume (MCV)Ordered By: Dr. Zamora on 10-16-2022 MCV (RBC) [Entitic vol] 91.1 fL 80-94 [facility] Hematocrit Auto (Bld) [Volum e fraction]Ordered By: Dr. Zamora on 10-16-2022 Hematocrit (Bld) [Volume fraction] 35.9 % 40-54 [facility] Laboratory - Chemistry and C hemistry - challengeOrdered By: Dr. Zamora on 10-16-2022 ALP [Catalytic activity/Vol] 52 U/L 45-117 [facility] ALT [Catalytic activity/Vol] 19 U/L 16-61 [facility] CO2 [Moles/Vol] 26.0 mmol/L 21.0-32.0 [facility] Globulin (S) [Mass/Vol] 4.5 g/dL 2.2-4.2 [facility] Urea nitrogen/Creatinine [Mass ratio] 17.5 mg/mg 10-20 [facility] Laboratory - Hematology and Cell countsOrdered By: Dr. Zamora on 10-16-2022 Erythrocyte distribution width (RBC) [Entitic vol] 50.4 fL 35.1-43.9 [facility] Erythrocyte distribution width (RBC) [Ratio] 15.2 % 11.6-14.6 [facility] Immature granulocytes/100 WBC (Bld) 0.800 % 0.0-0.9 [facility] Comment on above: IG% - Immature Granu locytes (promyelocytes, myelocytes and metamyelocytes) > 1% indicates that a LEFT SHIFT is Present. MCH (RBC) [Entitic mass] 29.2 pg 27.0-32.0 [facility] Nucleated RBC/100 WBC (Bld) [Ratio] 0 % 0-5 [facility] MCHC Auto (RBC) [Mass/Vol]Or dered By: Dr. Zamora on 10-16-2022 MCHC (RBC) [Mass/Vol] 32.0 g/dL 32-36 [facility] No Panel InformationOrdered By: Dr. Zamora on 10-16-2022 Estimated GFR (MDRD) Amer 45 mL/min >60 [facility] Comment on above: GFR Calc Estimated GFR (MDRD) Non-Af Amer 37 mL/min >60 [facility] Comment on above: Non- GFR Calc Platelets bldOrdered By: Dr. Zamora on 10-16-2022 Platelets (Bld) [#/Vol] 193 10*3/uL 150-450 [facility] Serum or plasma albumin kingsley urement (mass/volume)Ordered By: Dr. Zamora on 10-16-2022 Albumin [Mass/Vol] 3.3 g/dL 3.2-5.0 [facility] Serum or plasma albumin/glob ulin mass ratioOrdered By: Dr. Zamora on 10-16-2022 Albumin/Globulin [Mass ratio] 0.7 {ratio} 0.9-2.4 [facility] Serum or plasma calcium kignsley urement (mass/volume)Ordered By: Dr. Zamora on 10-16-2022 Calcium [Mass/Vol] 9.3 mg/dL 8.5-10.1 [facility] Serum or plasma creatinine m easurement (mass/volume)Ordered By: Dr. Zamora on 10-16-2022 Creatinine [Mass/Vol] 1.89 mg/dL 0.70-1.30 [facility] Comment on above: The validity of the calculated GFR & GFRAA in patients over 70 years has not been determined. Clinical correlation is essential. Serum or plasma urea nitroge n measurement (mass/volume)Ordered By: Dr. Zamora on 10-16-2022 Urea nitrogen [Mass/Vol] 33 mg/dL 7-18 [facility] Thin prep Papanicolaou smear with manual screeningOrdered By: Dr. Zamora on 10-16-2022 Thin prep Papanicolaou smear with manual screening 17 U/L 15-37 [facility] Thin prep Papanicolaou smear with manual screening 7 5-15 [facility] Basophil percentageOrdered B y: Dr. Zamora on 10-09-2022 Creatinine [Mass/Vol] 1.4 mg/dL 0.70-1.30 [facility] Laboratory - Chemistry and C hemistry - challengeOrdered By: Dr. Zamora on 10-09-2022 GFR/1.73 sq M.predicted among non-blacks MDRD (S/P/Bld) [Vol rate/Area] 52.0000 mL/min/{1.73_m2} >60 [facility] Culture, urineOrdered By: St gillian Glynn on 10-04-2022 Bacteria identified Cx Nom (U) Staphylococcus epidermidis [facility] Bacteria identified Cx Nom (U) GNR lactose cheesemaker helper [facility] Bilirubin Test strip Ql (U)O rdered By: Bonny Glynn on 10-02-2022 Bilirubin Ql (U) Negative Negative [facility] Ketones Test strip Ql (U)Ord ered By: Bonny Glynn on 10-02-2022 Ketones Ql (U) Negative Negative [facility] Nitrite Test strip Ql (U)Ord ered By: Bonny Glynn on 10-02-2022 Nitrite Ql (U) Positive Negative [facility] Protein Test strip Ql (U)Ord ered By: Bonny Glynn on 10-02-2022 Protein Ql (U) 100 mg/dl Negative [facility] Urine blood detectionOrdered By: Bonny Glynn on 10-02-2022 RBC Ql (U) 25 /ul Negative [facility] Urine clarityOrdered By: Ysabel Glynn on 10-02-2022 Clarity (U) Cloudy Clear [facility] Urine color determinationOrd ered By: Bonny Glynn on 10-02-2022 Color (U) Yellow Yellow [facility] Urine glucose detectionOrder ed By: Bonny Glynn on 10-02-2022 Glucose Ql (U) 50 mg/dl Normal [facility] Urine leukocyte esterase det ection by dipstickOrdered By: Bonny Glynn on 10-02-2022 Leukocyte esterase Test strip Ql (U) 500 /ul Negative [facility] Urine pHOrdered By: Bonny orosco on 10-02-2022 pH (U) 6.0 [pH] 5.0 - 8.0 [facility] Urine specific gravity measu rementOrdered By: Bonny Glynn on 10-02-2022 Specific gravity (U) [Rel density] 1.010 1.002-1.03 0 [facility] Urobilinogen Auto test strip Ql (U)Ordered By: Bonny Glynn on 10-02-2022 Urobilinogen Ql (U) Normal mg/dl Normal [facility] 07-28-2022 [facility] -- PEDRO HILLMAN ([id number]) 1945 M Date Time Provider Department 07/28/22 STEVEN RODRIGUEZ ANTWON During your visit today, we recorded the following information about you: Steven Rodriguez APRN.MOVIE PROJECTIONIST 07/28/2022 1:45 PM Signed In reviewing patient's [...] Status:Closed by STEVEN RODRIGUEZ on 08/09/22 Normal [facility] Anaerobic cultureOrdered By: Bonny Glynn on 07-21-2022 Bacteria identified Anaer cx Nom (Unsp spec) No anaerobic bacteria isolated. [facility] Bacteria identified Cx Nom ( Wound)Ordered By: Bonny Glynn on 07-20-2022 Wound Culture Staphylococcus pseudintermediu [facility] Gram stain for investigation of transfusion reactionOrdered By: Bonny Glynn on 07-19-2022 Microscopic observation Gram stain Nom (Unsp spec) [facility] No Panel InformationOrdered By: Dr. Choi on 06-01-2022 Estimated GFR (MDRD) Amer 63 mL/min >60 [facility] Comment on above: GFR Calc Estimated GFR (MDRD) Non-Af Amer 52 mL/min >60 [facility] Comment on above: Non- GFR Calc Serum or plasma creatinine m easurement (mass/volume)Ordered By: Dr. Choi on 06-01-2022 Creatinine [Mass/Vol] 1.40 mg/dL 0.70-1.30 [facility] Comment on above: The validity of the calculated GFR & GFRAA in patients over 70 years has not been determined. Clinical correlation is essential. Basophil percentageon 2021 Basophil percentage < 0.9 mg/dL 0.70-1.30 [facility] Work Phone: No Panel Informationon 05-22 Bedside Estimated GFR (eGFR) > 60.0000 mL/min >60 [facility] Work Phone: Absolute lymphocyte counton 04-14-2022 Lymphocytes Auto (Unsp spec) [#/Vol] 0.64 10*3/uL 0.83-4.51 [facility] Work Phone: Basophil percentageon 2021 Basophil percentage 0 SEEN /hpf 0-5 [facility] Work Phone: Basophils/100 WBC (Bld) 0.3 % 0-1 [facility] Work Phone: Bilirubin [Mass/Vol] 0.50 mg/dL 0.20-1.00 [facility] Work Phone: Comment on above: For patients on eltr ombopag therapy, use of [employer] [place] TBIL is not recommended. Chloride [Moles/Vol] 103 mmol/L 98-107 [facility] Work Phone: Eosinophils/100 WBC (Bld) 0.5 % 0-5 [facility] Work Phone: Glucose [Mass/Vol] 46 mg/dL 74-106 [facility] Work Phone: [phone] Comment on above: Glucose result less than 50 mg/dL suggests HYPOGLYCEMIA. Neutrophils (Bld) [#/Vol] 5.0 10*3/uL 2.0-7.7 [facility] Work Phone: [phone] Neutrophils/100 WBC (Bld) 76.1 % 47-70 [facility] Work Phone: Potassium [Moles/Vol] 4.2 mmol/L 3.5-5.1 [facility] Work Phone: [phone] Protein [Mass/Vol] 8.2 g/dL 6.4-8.2 [facility] Work Phone: Sodium [Moles/Vol] 136 mmol/L 136-145 [facility] Work Phone: [phone] WBC (Bld) [#/Vol] 6.6 10*3/uL 4.4-11.0 [facility] Work Phone: [phone] Bilirubin Test strip Ql (U)o n 04-14-2022 Bilirubin Ql (U) Negative Negative [facility] Work Phone: [phone] Blood erythrocytes count (nu mber/volume)on 04-14-2022 RBC (Bld) [#/Vol] 5.00 10*6/uL 4.6-6.2 [facility] Work Phone: [phone] Blood hemoglobin measurement (mass/volume)on 04-14-2022 Hemoglobin (Bld) [Mass/Vol] 13.9 g/dL 13.0-16.5 [facility] Work Phone: Blood lymphocytes/100 leukoc yteson 04-14-2022 Lymphocytes/100 WBC (Bld) 9.7 % 19-41 [facility] Work Phone: Blood monocytes/100 leukocyt eson 04-14-2022 Monocytes/100 WBC (Bld) 12.3 % 0-10 [facility] Work Phone: Blood platelet mean volumeon 04-14-2022 Platelet mean volume (Bld) [Entitic vol] 10.5 fL 6.2-12.0 [facility] Work Phone: Determination of erythrocyte mean corpuscular volume (MCV)on 04-14-2022 MCV (RBC) [Entitic vol] 86.4 fL 80-94 [facility] Work Phone: Glucose Glucometer (BldC) [M ass/Vol]on 04-14-2022 Glucose [Mass/Vol] 113 mg/dL 74-106 [facility] Work Phone: Comment on above: MANAGEMENT OF PATIEN T CARE PER NURSING PROTOCOL Hematocrit Auto (Bld) [Volum e fraction]on 04-14-2022 Hematocrit (Bld) [Volume fraction] 43.2 % 40-54 [facility] Work Phone: INR in Blood by Coagulation assayon 04-14-2022 INR Coag (Bld) [Relative time] 1.1 {INR} [facility] Work Phone: Ketones Test strip Ql (U)on 04-14-2022 Ketones Ql (U) 5 mg/dl Negative [facility] Work Phone: Laboratory - Chemistry and C hemistry - challengeon 04-14-2022 ALP [Catalytic activity/Vol] 63 U/L 45-117 [facility] Work Phone: ALT [Catalytic activity/Vol] 29 U/L 16-61 [facility] Work Phone: CO2 [Moles/Vol] 25.0 mmol/L 21.0-32.0 [facility] Work Phone: Globulin (S) [Mass/Vol] 5.1 g/dL 2.2-4.2 [facility] Work Phone: Urea nitrogen/Creatinine [Mass ratio] 37.6 mg/mg 10-20 [facility] Work Phone: Laboratory - Coagulationon 0 04-14-2022 PT Coag (PPP) [Time] 14.0 s 11.7-14.9 [facility] Work Phone: Laboratory - Hematology and Cell countson 04-14-2022 Erythrocyte distribution width (RBC) [Entitic vol] 49.0 fL 35.1-43.9 [facility] Work Phone: Erythrocyte distribution width (RBC) [Ratio] 15.4 % 11.6-14.6 [facility] Work Phone: Immature granulocytes/100 WBC (Bld) 1.100 % 0.0-0.9 [facility] Work Phone: Comment on above: IG% - Immature Granu locytes (promyelocytes, myelocytes and metamyelocytes) > 1% indicates that a LEFT SHIFT is Present. MCH (RBC) [Entitic mass] 27.8 pg 27.0-32.0 [facility] Work Phone: Nucleated RBC/100 WBC (Bld) [Ratio] 0 % 0-5 [facility] Work Phone: MCHC Auto (RBC) [Mass/Vol]on 04-14-2022 MCHC (RBC) [Mass/Vol] 32.2 g/dL 32-36 [facility] Work Phone: Mucus LM Ql (Urine sed)on Mucus Ql (Urine sed) 0 SEEN /hpf [facility] Work Phone: Nitrite Test strip Ql (U)on 04-14-2022 Nitrite Ql (U) Negative Negative [facility] Work Phone: No Panel Informationon 04-14 Estimated Creatinine Clearance Calc 35.56 ml/min [facility] Work Phone: Estimated GFR (MDRD) Amer 55 mL/min >60 [facility] Work Phone: Comment on above: GFR Calc Estimated GFR (MDRD) Non-Af Amer 46 mL/min >60 [facility] Work Phone: Comment on above: Non- GFR Calc Platelets bldon 04-14-2022 Platelets (Bld) [#/Vol] 293 10*3/uL 150-450 [facility] Work Phone: Platelets (Bld) [#/Vol] 287 10*3/uL 150-450 [facility] Work Phone: Protein Test strip Ql (U)on 04-14-2022 Protein Ql (U) 30 mg/dl Negative [facility] Work Phone: Serum or plasma albumin kingsley urement (mass/volume)on 04-14-2022 Albumin [Mass/Vol] 3.1 g/dL 3.2-5.0 [facility] Work Phone: Serum or plasma albumin/glob ulin mass ratioon 04-14-2022 Albumin/Globulin [Mass ratio] 0.6 {ratio} 0.9-2.4 [facility] Work Phone: Serum or plasma calcium kings[place] urement (mass/volume)on 04-14-2022 Calcium [Mass/Vol] 9.9 mg/dL 8.5-10.1 [facility] Work Phone: Serum or plasma creatinine m easurement (mass/volume)on 04-14-2022 Creatinine [Mass/Vol] 1.57 mg/dL 0.70-1.30 [facility] Work Phone: Comment on above: The validity of the calculated GFR & GFRAA in patients over 70 years has not been determined. Clinical correlation is essential. Serum or plasma urea nitroge n measurement (mass/volume)on 04-14-2022 Urea nitrogen [Mass/Vol] 59 mg/dL 7-18 [facility] Work Phone: Squamous epithelial cells de tection in urine sediment by light microscopyon 04-14-2022 Epithelial cells.squamous LM Ql (Urine sed) 0-5 SEEN /hpf 0-5 [facility] Work Phone: Thin prep Papanicolaou smear with manual screeningon 04-14-2022 Thin prep Papanicolaou smear with manual screening 30 U/L 15-37 [facility] Work Phone: Thin prep Papanicolaou smear with manual screening 8 5-15 [facility] Work Phone: Urine blood detectionon 03-21 RBC Ql (U) Negative Negative [facility] Work Phone: RBC Ql (U) 0 SEEN /hpf 0-5 [facility] Work Phone: Urine clarityon 04-14-2022 Clarity (U) Clear Clear [facility] Work Phone: Urine color determinationon 04-14-2022 Color (U) Yellow Yellow [facility] Work Phone: Urine glucose detectionon Glucose Ql (U) Normal mg/dl Normal [facility] Work Phone: Urine leukocyte esterase det ection by dipstickon 04-14-2022 Leukocyte esterase Test strip Ql (U) 25 /ul Negative [facility] Work Phone: Urine pHon 04-14-2022 pH (U) 6.0 [pH] 5.0 - 8.0 [facility] Work Phone: Urine sediment bacteria coun t by microscopy (number/high power field)on 04-14-2022 Bacteria LM.HPF (Urine sed) [#/Area] 0 /[HPF] None Seen [facility] Work Phone: Urine specific gravity measu rementon 04-14-2022 Specific gravity (U) [Rel density] 1.010 1.002-1.03 0 [facility] Work Phone: Urobilinogen Auto test strip Ql (U)on 04-14-2022 Urobilinogen Ql (U) Normal mg/dl Normal [facility] Work Phone: Basophil percentageon 2021 Creatinine [Mass/Vol] 1.4 mg/dL 0.70-1.30 [facility] Work Phone: Laboratory - Chemistry and C hemistry - challengeon 04-12-2022 GFR/1.73 sq M.predicted among non-blacks MDRD (S/P/Bld) [Vol rate/Area] 50.0000 mL/min/{1.73_m2} >60 [facility] Work Phone: Adriana 04-06-2022 CNPN Telephone ([facility]) -- KADYPEDRO ([id number]) 1945 M Date Time Provider Department 04/06/22 CARLOS WHELAN [facility] During your visit today, [...] Signed Still unable to reach patient and spare person is spouse with same number.Sigrid Mock 04/07/2022 5:49 PM Signed Unable to reach patient. Mailbox full/Mailbox not set up/ Number incorrect. Please try again later. Jenny Avilaanna Mock 04/08/2022 9:23 AM Signed left message on machine to give call back, different number from pharmacy. [phone]. Jenny Ramirez Allie 04/08/2022 2:56 PM Signed Notified pt of results, daughter will call to get information on restrictions. Jenny Allie Allergies As of Date: 04/06/2022 Noted Allergy [...] Status:Closed by JENNY MOCK on 04/08/22 Normal [facility] Bacteria Ur Culton 2 Bacteria identified Cx Nom (U) [id number] Abnormal [facility] Comment on above: Order Comment: Speci men Type: URINE SPECIMEN Ordering Facility: [facility] Address: [address] [place] [address] Result Comment: >=10 0,000 CFU/ml Streptococcus mitis-oralis group No further workup Performed By: #### 6 30-4 #### [facility] CLIA [id number] [address] [place], [place] [address] [address] [place] CNOVon 04-05-2022 CNOV Office Visit ([facility] ) -- PEDRO HILLMAN ([id number]) 1945 M Date Time Provider Department 04/05/22 1:15 PM STEVEN RODRIGUEZ [facility] During your visit today, we recorded the following information about you: Temperature Pulse Respiration Blood pressure 101.6 degrees 76/minute 16/minute 122/76 Weight 87.1 kg Steven Rodriguez APRN.[facility] 04/05/2022 3:51 PM Signed Subjective HPI Pedro [...] WITH FLUA+B, ROUTINE Steven Rodriguez APRN.SHANI Rodriguez APRN.SHANI 04/05/2022 2:27 PM [...] up a (more content not included)... Normal [facility] CNPNon 04-05-2022 TASIA Telephone ([facility]) -- PEDRO HILLMAN ([id number]) 1945 M Date Time Provider Department 04/05/22 STEVEN RODRIGUEZ [facility] During your visit today, we recorded the following information about you: Steven Rodriguez APRN.CNP 04/05/2022 2:59 PM Signed Radiology report faxed to patient's PCP Dr. Tonio Fajardo at [phone]. Confirmation of fax received. Patient was advised [...] Status:Closed by STEVEN RODRIGUEZ on 04/05/22 Normal [facility] Panel InformationOrdered By: Ccf Provider on 04-05-2022 Radiology Result ACTIONABLE Abnormal [facility] Comment on above: This report contains an [...] (POC)on 2021 BILIRUBIN UA (POCT) Negative Negative [facility] CLARITY UA (POCT) Cloudy [facility] COLOR UA (POCT) Dark yellow [facility] GLUCOSE UA (POCT) Negative Negative mg/dL [facility] HEMOGLOBIN/BLOOD UA (POCT) Small Abnormal Negative [facility] KETONE UA (POCT) Negative Negative mg/dL [facility] LEUKOCYTES UA (POCT) Large Abnormal Negative [facility] NITRITE UA (POCT) Negative Negative [facility] PH UA (POCT) 6.0 4.5 - 8.0 [facility] Protein Ql (U) 100 mg/dL Abnormal Negative mg/dL [facility] SPECIFIC GRAVITY UA (POCT) 1.020 1.005 - 1.030 [facility] UROBILINOGEN UA (POCT) 0.2 E.U./dL Umm l E.U./dL [facility] XR CHEST 2V FRONTAL/LATon XR CHEST [...] be communicated with the ordering provider via [email or web address] staff message or phone message by [employer] within 2 business days of report finalization. Algorithms for management of incidental imaging findings can be found on the [facility] Intranet Sharepoint site at: [email or web address] [email or web address]/job/Managi ng%20Incidental%20Findi ngs%20at%20Imaging/Forms/A llItems.aspx Visual Manager: JONATHAN Transcribe Date/Time: Apr 05 2022 2:11P Dictated by : SANDEEP ORTIZ MD This examination was interpreted and the report reviewed and electronically signed by: SANDEEP ORTIZ MD on Apr 05 2022 2:13PM EST [id number] ACTIONABLE Invalid Interpretation Code [facility] XR Chest PA and LateralOrder ed By: Cc Provider on 04-05-2022 Interpretation and review of laboratory results Abnormal [facility] XR Chest PA and Lateralon IMPRESSION: [...] be communicated with the ordering provider via [email or web address] staff message or phone message by [employer] within 2 business days of report finalization. Algorithms for management of incidental imaging findings can be found on the [facility] Intranet Sharepoint site at: [email or web address] [email or web address]/[email or web address]/Managi ng%20Incidental%20Findi ngs%20at%20Imaging/Forms/A llItems.aspx Visual Manager: JONATHAN Transcribe Date/Time: Apr 05 2022 2:11P Dictated by : SANDEEP ORTIZ MD This examination was interpreted and the report reviewed and electronically signed by: SANDEEP ORTIZ MD on Apr 05 2022 2:13PM [facility] DIVISION OF RADIOLOGY * * *Final [...] the thoracic spine. DIVISION OF RADIOLOGY Provider, [facility] Harry Perez - 04/05/2022 * * *Final Report* * [...] be communicated with the ordering provider via [email or web address] staff message or phone message by [employer] within 2 business days of report finalization. Algorithms for management of incidental imaging findings can be found on the [facility] Intranet Sharepoint site at: [email or web address] [email or web address] ng%20Incidental%20Findi ngs%20at%20Imaging/Forms/A llItems.aspx Visual Manager: JONATHAN Transcribe Date/Time: Apr 05 2022 2:11P Dictated by : SANDEEP ORTZI MD This examination was interpreted and the report reviewed and electronically signed by: SANDEEP ORTIZ MD on Apr 05 2022 2:13PM EST [facility] Radiology Study observation (narrative) [facility] Anaerobic culture Bacteria identified Anaer cx Nom (Unsp spec) No anaerobic bacteria isolated. [facility] Work Phone: Bacteria identified Anaer cx Nom (Unsp spec) Anaerobic Culture Anaerobic cocci [facility] Work Phone: Bacteria identified Cx Nom ( Wound) Wound Culture Staphylococcus pseudintermediu [facility] Work Phone: Wound Culture Staphylococcus saprophyticus [facility] Work Phone: Gram stain for investigation of transfusion reaction Microscopic observation Gram stain Nom (Unsp spec) [facility] Work Phone: Vital Signs Date Time Vital Sign Value Performing Clinician Facility 04-23-2025 14:00-0400 Body temperature 97.9 [degF] Dr. Tonio Fajardo DO Work Phone: [facility] 04-23-2025 14:00-0400 Diastolic blood pressure 73 mm[Hg] Dr. Tonio Fajardo DO Work Phone: [facility] 04-23-2025 14:00-0400 Heart rate 97 /min Dr. Tonio Fajardo DO Work Phone: [facility] 04-23-2025 14:00-0400 Inhaled oxygen flow rate 2 L/min Dr. Tonio Fajardo DO Work Phone: [facility] 04-23-2025 14:00-0400 Respiratory rate 18 /min Dr. Tonio Fajardo DO Work Phone: [facility] 04-23-2025 14:00-0400 SaO2% (BldA) [Mass fraction] 96 % Dr. Tonio Fajardo DO Work Phone: [facility] 04-23-2025 14:00-0400 Systolic blood pressure 109 mm[Hg] Dr. Tonio Fajardo DO Work Phone: [facility] 04-20-2025 13:48-0400 Body height 167.[address] Tonio Fajardo DO Work Phone: [facility] 04-20-2025 13:48-0400 Body weight 65.[address] Tonio Fajardo DO Work Phone: [facility] 04-19-2025 21:50-0400 Inhaled oxygen concentration 2 % Dr. Tonio Fajardo DO Work Phone: [facility] 04-19-2025 12:12-0400 Body mass index (BMI) [Ratio] 23.1 kg/m2 Dr. Tonio Fajardo DO Work Phone: [facility] 04-19-2025 11:03-0400 Body temperature 97.9 [degF] Dr. Tonio Fajardo DO Work Phone: [facility] 04-19-2025 11:03-0400 Diastolic blood pressure 66 mm[Hg] Dr. Tonio Fajardo DO Work Phone: [facility] 04-19-2025 11:03-0400 Heart rate 102 /min Dr. Tonio Fajardo DO Work Phone: [facility] 04-19-2025 11:03-0400 Respiratory rate 16 /min Dr. Tonio Fajardo DO Work Phone: [facility] 04-19-2025 11:03-0400 SaO2% (BldA) [Mass fraction] 100 % Dr. Tonio Fajardo DO Work Phone: [facility] 04-19-2025 11:03-0400 Systolic blood pressure 126 mm[Hg] Dr. Tonio Fajardo DO Work Phone: [facility] 04-19-2025 09:54-0400 Diastolic blood pressure 68 mm[Hg] Dr. Tonio Fajardo DO Work Phone: [facility] 04-19-2025 09:54-0400 Heart rate 103 /min Dr. Tonio Fajardo DO Work Phone: [facility] 04-19-2025 09:54-0400 Systolic blood pressure 85 mm[Hg] Dr. Tonio Fajardo DO Work Phone: [facility] 04-19-2025 09:45-0400 Inhaled oxygen flow rate 3 L/min Dr. Tonio Fajardo DO Work Phone: [facility] 04-19-2025 09:45-0400 Respiratory rate 20 /min Dr. Tonio Fajardo DO Work Phone: [facility] 04-19-2025 09:45-0400 SaO2% (BldA) [Mass fraction] 100 % Dr. Tonio Fajardo DO Work Phone: [facility] 04-19-2025 08:22-0400 Body height 167.[address] Tonio Fajardo DO Work Phone: [facility] 04-19-2025 08:22-0400 Body mass index (BMI) [Ratio] 25.7 kg/m2 Dr. Tonio Fajardo DO Work Phone: [facility] 04-19-2025 08:22-0400 Body temperature 97.9 [degF] Dr. Tonio Fajardo DO Work Phone: [facility] 04-19-2025 08:22-0400 Body weight 72.[address] Tonio Fajardo DO Work Phone: [facility] 04-19-2025 08:08-0400 Heart rate 102 /min Dr. Tonio Fajardo DO Work Phone: [facility] 04-19-2025 07:54-0400 Body temperature 97.4 [degF] Dr. Tonio Fajardo DO Work Phone: [facility] 04-19-2025 07:54-0400 Diastolic blood pressure 67 mm[Hg] Dr. Tonio Fajardo DO Work Phone: [facility] 04-19-2025 07:54-0400 Inhaled oxygen flow rate 3 L/min Dr. Tonio Fajardo DO Work Phone: [facility] 04-19-2025 07:54-0400 Respiratory rate 18 /min Dr. Tonio Fajardo DO Work Phone: [facility] 04-19-2025 07:54-0400 SaO2% (BldA) [Mass fraction] 100 % Dr. Tonio Fajardo DO Work Phone: [facility] 04-19-2025 07:54-0400 Systolic blood pressure 118 mm[Hg] Dr. Tonio Fajardo DO Work Phone: [facility] 04-18-2025 11:58-0400 Body weight 67.[address] Tonio Fajardo DO Work Phone: [facility] 04-17-2025 18:17-0400 Body mass index (BMI) [Ratio] 23.8 kg/m2 Dr. Tonio Fajardo DO Work Phone: [facility] 04-13-2025 02:37-0400 Inhaled oxygen flow rate 15 L/min Dr. Tonio Fajardo DO Work Phone: [facility] 04-13-2025 02:37-0400 SaO2% (BldA) [Mass fraction] 100 % Dr. Tonio Fajardo DO Work Phone: [facility] 04-13-2025 00:56-0400 Body temperature 97.8 [degF] Dr. Tonio Fajardo DO Work Phone: [facility] 04-13-2025 00:56-0400 Diastolic blood pressure 71 mm[Hg] Dr. Tonio Fajardo DO Work Phone: [facility] 04-13-2025 00:56-0400 Heart rate 106 /min Dr. Tonio Fajardo DO Work Phone: [facility] 04-13-2025 00:56-0400 Respiratory rate 21 /min Dr. Tonio Fajardo DO Work Phone: [facility] 04-13-2025 00:56-0400 Systolic blood pressure 129 mm[Hg] Dr. Tonio Fajardo DO Work Phone: [facility] 04-12-2025 23:03-0400 Body temperature 97.8 [degF] Dr. Tonio Fajardo DO Work Phone: [facility] 04-12-2025 23:03-0400 Diastolic blood pressure 80 mm[Hg] Dr. Tonio Fajardo DO Work Phone: [facility] 04-12-2025 23:03-0400 Heart rate 109 /min Dr. Tonio Fajardo DO Work Phone: [facility] 04-12-2025 23:03-0400 Respiratory rate 21 /min Dr. Tonio Fajardo DO Work Phone: [facility] 04-12-2025 23:03-0400 SaO2% (BldA) [Mass fraction] 100 % Dr. Tonio Fajardo DO Work Phone: [facility] 04-12-2025 23:03-0400 Systolic blood pressure 142 mm[Hg] Dr. Tonio Fajardo DO Work Phone: [facility] 04-12-2025 22:00-0400 Inhaled oxygen flow rate 15 L/min Dr. Tonio Fajardo DO Work Phone: [facility] 04-12-2025 18:05-0400 Body height 167.[address] Tonio Fajardo DO Work Phone: [facility] 04-12-2025 18:05-0400 Body mass index (BMI) [Ratio] 25.4 kg/m2 Dr. Tonio Fajardo DO Work Phone: [facility] 04-12-2025 18:05-0400 Body weight 71.[address] Tonio Fajardo DO Work Phone: [facility] 04-12-2025 16:46-0400 Heart rate 115 /min Dr. Tonio Fajardo DO Work Phone: [facility] 04-12-2025 15:40-0400 Diastolic blood pressure 74 mm[Hg] Dr. Tonio Fajardo DO Work Phone: [facility] 04-12-2025 15:40-0400 Inhaled oxygen flow rate 3 L/min Dr. Tonio Fajardo DO Work Phone: [facility] 04-12-2025 15:40-0400 Respiratory rate 22 /min Dr. Tonio Fajardo DO Work Phone: [facility] 04-12-2025 15:40-0400 SaO2% (BldA) [Mass fraction] 96 % Dr. Tonio Fajardo DO Work Phone: [facility] 04-12-2025 15:40-0400 Systolic blood pressure 146 mm[Hg] Dr. Tonio Fajardo DO Work Phone: [facility] 04-12-2025 08:52-0400 Body temperature 96.7 [degF] Dr. Tonio Fajardo DO Work Phone: [facility] 04-11-2025 12:48-0400 Body weight 70.[address] Tonio Fajardo DO Work Phone: [facility] 04-10-2025 23:00-0400 Body mass index (BMI) [Ratio] 25.2 kg/m2 Dr. Tonio Fajardo DO Work Phone: [facility] 04-10-2025 16:21-0400 Body temperature 98.6 [degF] Dr. Tonio Fajardo DO Work Phone: [facility] 04-10-2025 16:21-0400 Diastolic blood pressure 82 mm[Hg] Dr. Tonio Fajardo DO Work Phone: [facility] 04-10-2025 16:21-0400 Heart rate 106 /min Dr. Tonio Fajardo DO Work Phone: [facility] 04-10-2025 16:21-0400 Inhaled oxygen flow rate 3 L/min Dr. Tonio Fajardo DO Work Phone: [facility] 04-10-2025 16:21-0400 Respiratory rate 18 /min Dr. Tonio Fajardo DO Work Phone: [facility] 04-10-2025 16:21-0400 SaO2% (BldA) [Mass fraction] 100 % Dr. Tonio Fajardo DO Work Phone: [facility] 04-10-2025 16:21-0400 Systolic blood pressure 142 mm[Hg] Dr. Tonio Fajardo DO Work Phone: [facility] 04-10-2025 14:30-0400 Body height 167.[address] Tonio Fajardo DO Work Phone: [facility] 04-10-2025 14:30-0400 Body weight 75.[address] Tonio Fajardo DO Work Phone: [facility] 04-10-2025 05:10-0400 Body mass index (BMI) [Ratio] 26.7 kg/m2 Dr. Tonio Fajardo DO Work Phone: [facility] 04-07-2025 00:00-0400 Inhaled oxygen concentration 35 % Dr. Tonio Fajardo DO Work Phone: [facility] 04-05-2025 20:00-0400 Diastolic blood pressure 65 mm[Hg] Dr. Tonio Fajardo DO Work Phone: [facility] 04-05-2025 20:00-0400 Heart rate 103 /min Dr. Tonio Fajardo DO Work Phone: [facility] 04-05-2025 20:00-0400 Inhaled oxygen flow rate 4 L/min Dr. Tonio Fajardo DO Work Phone: [facility] 04-05-2025 20:00-0400 Respiratory rate 25 /min Dr. Tonio Fajardo DO Work Phone: [facility] 04-05-2025 20:00-0400 SaO2% (BldA) [Mass fraction] 92 % Dr. Tonio Fajardo DO Work Phone: [facility] 04-05-2025 20:00-0400 Systolic blood pressure 119 mm[Hg] Dr. Tonio Fajardo DO Work Phone: [facility] 04-05-2025 19:12-0400 Body temperature 98 [degF] Dr. Tonio Fajardo DO Work Phone: [facility] 04-05-2025 16:41-0400 Body height 167.[address] Tonio Fajardo DO Work Phone: [facility] 04-05-2025 16:41-0400 Body mass index (BMI) [Ratio] 28 kg/m2 Dr. Tonio Fajardo DO Work Phone: [facility] 04-05-2025 16:41-0400 Body weight 78.[address] Tonio Fajardo DO Work Phone: [facility] 03-17-2025 13:07-0400 Body height 167.[address] Tonio Fajardo DO Work Phone: [facility] 03-17-2025 13:07-0400 Body mass index (BMI) [Ratio] 26.6 kg/m2 Dr. Tonio Fajardo DO Work Phone: [facility] 03-17-2025 13:07-0400 Body weight 74.[address] Tonio Fajardo DO Work Phone: [facility] 03-17-2025 13:07-0400 Diastolic blood pressure 60 mm[Hg] Dr. Tonio Fajardo DO Work Phone: [facility] 03-17-2025 13:07-0400 Heart rate 101 /min Dr. Tonio Fajardo DO Work Phone: [facility] 03-17-2025 13:07-0400 Inhaled oxygen flow rate 3 L/min Dr. Tonio Fajardo DO Work Phone: [facility] 03-17-2025 13:07-0400 Respiratory rate 20 /min Dr. Tonio Fajardo DO Work Phone: [facility] 03-17-2025 13:07-0400 SaO2% (BldA) [Mass fraction] 96 % Dr. Tonio Fajardo DO Work Phone: [facility] 03-17-2025 13:07-0400 Systolic blood pressure 124 mm[Hg] Dr. Tonio Fajardo DO Work Phone: [facility] 03-15-2025 18:32-0400 Body temperature 98.1 [degF] Dr. Tonio Fajardo DO Work Phone: [facility] 03-15-2025 18:32-0400 Diastolic blood pressure 71 mm[Hg] Dr. Tonio Fajardo DO Work Phone: [facility] 03-15-2025 18:32-0400 Heart rate 101 /min Dr. Tonio Fajardo DO Work Phone: [facility] 03-15-2025 18:32-0400 Respiratory rate 18 /min Dr. Tonio Fajardo DO Work Phone: [facility] 03-15-2025 18:32-0400 SaO2% (BldA) [Mass fraction] 93 % Dr. Tonio Fajardo DO Work Phone: [facility] 03-15-2025 18:32-0400 Systolic blood pressure 168 mm[Hg] Dr. Tonio Fajardo DO Work Phone: [facility] 03-15-2025 16:58-0400 Body height 167.[address] Tonio Fajardo DO Work Phone: [facility] 03-15-2025 16:58-0400 Body mass index (BMI) [Ratio] 27.8 kg/m2 Dr. Tonio Fajardo DO Work Phone: [facility] 03-15-2025 16:58-0400 Body weight 78.[address] Tonio Fajardo DO Work Phone: [facility] 03-15-2025 16:58-0400 Inhaled oxygen flow rate 3 L/min Dr. Tonio Fajardo DO Work Phone: [facility] 03-09-2025 16:22-0400 Body temperature 98.5 [degF] Dr. Tonio Fajardo DO Work Phone: [facility] 03-09-2025 16:22-0400 Heart rate 78 /min Dr. Tonio Fajardo DO Work Phone: [facility] 03-09-2025 16:22-0400 Inhaled oxygen flow rate 3 L/min Dr. Tonio Fajardo DO Work Phone: [facility] 03-09-2025 16:22-0400 Respiratory rate 20 /min Dr. Tonio Fajardo DO Work Phone: [facility] 03-09-2025 16:22-0400 SaO2% (BldA) [Mass fraction] 92 % Dr. Tonio Fajardo DO Work Phone: [facility] 03-09-2025 11:48-0400 Inhaled oxygen flow rate 2 L/min Dr. Tonio Fajardo DO Work Phone: [facility] 03-09-2025 11:48-0400 SaO2% (BldA) [Mass fraction] 79 % Dr. Tonio Fajardo DO Work Phone: [facility] 03-09-2025 11:11-0400 Body height 167.[address] Tonio Fajardo DO Work Phone: [facility] 03-09-2025 11:11-0400 Body weight 78.[address] Tonio Fajardo DO Work Phone: [facility] 03-09-2025 10:00-0400 Diastolic blood pressure 51 mm[Hg] Dr. Tonio Fajardo DO Work Phone: [facility] 03-09-2025 10:00-0400 Heart rate 97 /min Dr. Tonio Fajardo DO Work Phone: [facility] 03-09-2025 10:00-0400 Systolic blood pressure 129 mm[Hg] Dr. Tonio Fajardo DO Work Phone: [facility] 03-09-2025 05:00-0400 Body mass index (BMI) [Ratio] 28 kg/m2 Dr. Tonio Fajardo DO Work Phone: [facility] 03-04-2025 20:49-0400 Body temperature 98.6 [degF] Dr. Tonio Fajardo DO Work Phone: [facility] 03-04-2025 20:49-0400 Diastolic blood pressure 70 mm[Hg] Dr. Tonio Fajardo DO Work Phone: [facility] 03-04-2025 20:49-0400 Heart rate 114 /min Dr. Tonio Fajardo DO Work Phone: [facility] 03-04-2025 20:49-0400 Respiratory rate 20 /min Dr. Tonio Fajardo DO Work Phone: [facility] 03-04-2025 20:49-0400 SaO2% (BldA) [Mass fraction] 100 % Dr. Tonio Fajardo DO Work Phone: [facility] 03-04-2025 20:49-0400 Systolic blood pressure 153 mm[Hg] Dr. Tonio Fajardo DO Work Phone: [facility] 03-04-2025 20:00-0400 Inhaled oxygen flow rate 4 L/min Dr. Tonio Fajardo DO Work Phone: [facility] 03-04-2025 15:01-0400 Body height 167.[address] Tonio Fajardo DO Work Phone: [facility] 03-04-2025 15:01-0400 Body mass index (BMI) [Ratio] 25.9 kg/m2 Dr. Tonio Fajardo DO Work Phone: [facility] 03-04-2025 15:01-0400 Body weight 73.[address] Tonio Fajardo DO Work Phone: [facility] 11-06-2024 14:45-0400 Body height 167.[address] Tonio Fajardo DO Work Phone: [facility] 11-06-2024 14:45-0400 Body mass index (BMI) [Ratio] 28.5 kg/m2 Dr. Tonio Fajardo DO Work Phone: [facility] 11-06-2024 14:45-0400 Body temperature 98.5 [degF] Dr. Tonio Fajardo DO Work Phone: [facility] 11-06-2024 14:45-0400 Body weight 80.[address] Tonio Fajardo DO Work Phone: [facility] 11-06-2024 14:45-0400 Diastolic blood pressure 55 mm[Hg] Dr. Tonio Fajardo DO Work Phone: [facility] 11-06-2024 14:45-0400 Heart rate 55 /min Dr. Tonio Fajardo DO Work Phone: [facility] 11-06-2024 14:45-0400 Respiratory rate 18 /min Dr. Tonio Fajardo DO Work Phone: [facility] 11-06-2024 14:45-0400 SaO2% (BldA) [Mass fraction] 95 % Dr. Tonio Fajardo DO Work Phone: [facility] 11-06-2024 14:45-0400 Systolic blood pressure 116 mm[Hg] Dr. Tonio Fajardo DO Work Phone: [facility] 10-23-2024 09:06-0500 Body mass index (BMI) [Ratio] 28.5 kg/m2 Dr. Tonio Fajardo DO Work Phone: [facility] 10-23-2024 09:06-0500 Body temperature 97.4 [degF] Dr. Tonio Fajardo DO Work Phone: [facility] 10-23-2024 09:06-0500 Body weight 80.[address] Tonio Fajardo DO Work Phone: [facility] 10-23-2024 09:06-0500 Diastolic blood pressure 56 mm[Hg] Dr. Tonio Fajardo DO Work Phone: [facility] 10-23-2024 09:06-0500 Heart rate 52 /min Dr. Tonio Fajardo DO Work Phone: [facility] 10-23-2024 09:06-0500 Inhaled oxygen flow rate 3 L/min Dr. Tonio Fajardo DO Work Phone: [facility] 10-23-2024 09:06-0500 Respiratory rate 26 /min Dr. Tonio Fajardo DO Work Phone: [facility] 10-23-2024 09:06-0500 SaO2% (BldA) [Mass fraction] 97 % Dr. Tonio Fajardo DO Work Phone: [facility] 10-23-2024 09:06-0500 Systolic blood pressure 128 mm[Hg] Dr. Tonio Fajardo DO Work Phone: [facility] 10-16-2024 13:24-0500 Body height 167.[address] Tonio Fajardo DO Work Phone: [facility] 10-16-2024 13:24-0500 Body weight 78.[address] Tonio Fajardo DO Work Phone: [facility] 10-16-2024 13:24-0500 Heart rate 98 /min Dr. Tonio Fajardo DO Work Phone: [facility] 10-16-2024 13:24-0500 Inhaled oxygen flow rate 2 L/min Dr. Tonio Fajardo DO Work Phone: [facility] 10-16-2024 13:24-0500 SaO2% (BldA) [Mass fraction] 96 % Dr. Tonio Fajardo DO Work Phone: [facility] 09-25-2024 12:59-0500 Body mass index (BMI) [Ratio] 27.7 kg/m2 Dr. Tonio Fajardo DO Work Phone: [facility] 09-25-2024 12:59-0500 Body weight 80.[address] Tonio Fajardo DO Work Phone: [facility] 09-25-2024 12:59-0500 Diastolic blood pressure 75 mm[Hg] Dr. Tonio Fajardo DO Work Phone: [facility] 09-25-2024 12:59-0500 Heart rate 99 /min Dr. Tonio Fajardo DO Work Phone: [facility] 09-25-2024 12:59-0500 Respiratory rate 18 /min Dr. Tonio Fajardo DO Work Phone: [facility] 09-25-2024 12:59-0500 SaO2% (BldA) [Mass fraction] 90 % Dr. Tonio Fajardo DO Work Phone: [facility] 09-25-2024 12:59-0500 Systolic blood pressure 120 mm[Hg] Dr. Tonio Fajardo DO Work Phone: [facility] 11-12-2023 13:22-0400 Body height 170.[address] Tonio Fajardo Work Phone: [facility] 11-12-2023 13:22-0400 Body mass index (BMI) [Ratio] 28 kg/m2 Dr. Tonio Fajardo Work Phone: [facility] 11-12-2023 13:22-0400 Body temperature 97.9 [degF] Dr. Tonio Fajardo Work Phone: [facility] 11-12-2023 13:22-0400 Body weight 81.[address] Tonio Fajardo Work Phone: [facility] 11-12-2023 13:22-0400 Diastolic blood pressure 62 mm[Hg] Dr. Tonio Fajardo Work Phone: [facility] 11-12-2023 13:22-0400 Heart rate 103 /min Dr. Tonio Fajardo Work Phone: [facility] 11-12-2023 13:22-0400 Respiratory rate 18 /min Dr. Tonio Fajardo Work Phone: [facility] 11-12-2023 13:22-0400 SaO2% (BldA) [Mass fraction] 98 % Dr. Tonio Fajardo Work Phone: [facility] 11-12-2023 13:22-0400 Systolic blood pressure 97 mm[Hg] Dr. Tonio Faajrdo Work Phone: [facility] 10-31-2023 12:05-0400 Body mass index (BMI) [Ratio] 27.3 kg/m2 Dr. Tonio Fajardo Work Phone: [facility] 10-31-2023 12:05-0400 Body temperature 98.2 [degF] Dr. Tonio Fajardo Work Phone: [facility] 10-31-2023 12:05-0400 Body weight 79.[address] Tonio Fajardo Work Phone: [facility] 10-31-2023 12:05-0400 Diastolic blood pressure 71 mm[Hg] Dr. Tonio Fajardo Work Phone: [facility] 10-31-2023 12:05-0400 Heart rate 78 /min Dr. Tonio Fajardo Work Phone: [facility] 10-31-2023 12:05-0400 Respiratory rate 18 /min Dr. Tonio Fajardo Work Phone: [facility] 10-31-2023 12:05-0400 SaO2% (BldA) [Mass fraction] 94 % Dr. Tonio Fajardo Work Phone: [facility] 10-31-2023 12:05-0400 Systolic blood pressure 119 mm[Hg] Dr. Tonio Fajardo Work Phone: [facility] 10-18-2023 14:51-0500 Body mass index (BMI) [Ratio] 28 kg/m2 Dr. Tonio Fajardo Work Phone: [facility] 10-18-2023 14:51-0500 Body temperature 98.9 [degF] Dr. Tonio Fajardo Work Phone: [facility] 10-18-2023 14:51-0500 Body weight 81.[address] Tonio Fajardo Work Phone: [facility] 10-18-2023 14:51-0500 Diastolic blood pressure 60 mm[Hg] Dr. Tonio Fajardo Work Phone: [facility] 10-18-2023 14:51-0500 Heart rate 98 /min Dr. Tonio Fajardo Work Phone: [facility] 10-18-2023 14:51-0500 Respiratory rate 18 /min Dr. Tonio Fajardo Work Phone: [facility] 10-18-2023 14:51-0500 SaO2% (BldA) [Mass fraction] 96 % Dr. Tonio Fajardo Work Phone: [facility] 10-18-2023 14:51-0500 Systolic blood pressure 114 mm[Hg] Dr. Tonio Fajardo Work Phone: [facility] 08-29-2023 12:52-0500 Body height 170.[address] Tonio Fajarod Work Phone: [facility] 08-29-2023 12:52-0500 Body mass index (BMI) [Ratio] 27.8 kg/m2 Dr. Tonio Fajardo Work Phone: [facility] 08-29-2023 12:52-0500 Body weight 80.[address] Tonio Fajardo Work Phone: [facility] 08-29-2023 12:52-0500 Diastolic blood pressure 71 mm[Hg] Dr. Tonio Fajardo Work Phone: [facility] 08-29-2023 12:52-0500 Heart rate 95 /min Dr. Tonio Fajardo Work Phone: [facility] 08-29-2023 12:52-0500 Respiratory rate 18 /min Dr. Tonio Fajardo Work Phone: [facility] 08-29-2023 12:52-0500 SaO2% (BldA) [Mass fraction] 97 % Dr. Tonio Fajardo Work Phone: [facility] 08-29-2023 12:52-0500 Systolic blood pressure 111 mm[Hg] Dr. Tonio Fajardo Work Phone: [facility] 07-25-2023 07:50-0500 Body height 170.[address] Tonio Fajardo Work Phone: [facility] 07-25-2023 07:50-0500 Body mass index (BMI) [Ratio] 29.4 kg/m2 Dr. Tonio Fajardo Work Phone: [facility] 07-25-2023 07:50-0500 Body temperature 96.2 [degF] Dr. Tonio Fajardo Work Phone: [facility] 07-25-2023 07:50-0500 Body weight 85.[address] Tonio Fajardo Work Phone: [facility] 07-25-2023 07:50-0500 Diastolic blood pressure 75 mm[Hg] Dr. Tonio Fajardo Work Phone: [facility] 07-25-2023 07:50-0500 Heart rate 53 /min Dr. Tonio Fajardo Work Phone: [facility] 07-25-2023 07:50-0500 Respiratory rate 20 /min Dr. Tonio Fajardo Work Phone: [facility] 07-25-2023 07:50-0500 SaO2% (BldA) [Mass fraction] 82 % Dr. Tonio Fajardo Work Phone: [facility] 07-25-2023 07:50-0500 Systolic blood pressure 119 mm[Hg] Dr. Tonio Fajardo Work Phone: [facility] 06-08-2023 14:33-0400 Body temperature 97.1 [degF] Dr. Tonio Fajardo Work Phone: [facility] 06-08-2023 14:33-0400 Diastolic blood pressure 67 mm[Hg] Dr. Tonio Fajardo Work Phone: [facility] 06-08-2023 14:33-0400 Heart rate 103 /min Dr. Tonio Fajardo Work Phone: [facility] 06-08-2023 14:33-0400 Respiratory rate 14 /min Dr. Tonio Fajardo Work Phone: [facility] 06-08-2023 14:33-0400 SaO2% (BldA) [Mass fraction] 93 % Dr. Tonio Fajardo Work Phone: [facility] 06-08-2023 14:33-0400 Systolic blood pressure 133 mm[Hg] Dr. Tonio Fajardo Work Phone: [facility] 06-08-2023 12:20-0400 Body height 170.[address] Tonio Fajardo Work Phone: [facility] 06-08-2023 12:20-0400 Body mass index (BMI) [Ratio] 29.3 kg/m2 Dr. Tonio Fajardo Work Phone: [facility] 06-08-2023 12:20-0400 Body weight [address] Tonio Fajardo Work Phone: [facility] 05-02-2023 13:50-0400 Diastolic blood pressure 63 mm[Hg] Dr. Tonio Fajardo Work Phone: [facility] 05-02-2023 13:50-0400 Heart rate 97 /min Dr. Tonio Fajardo Work Phone: [facility] 05-02-2023 13:50-0400 Respiratory rate 18 /min Dr. Tonio Fajardo Work Phone: [facility] 05-02-2023 13:50-0400 Systolic blood pressure 113 mm[Hg] Dr. Tonio Fajardo Work Phone: [facility] 04-25-2023 14:04-0400 Body temperature 97.9 [degF] Dr. Tonio Fajardo Work Phone: [facility] 04-18-2023 13:24-0400 Body temperature 97.5 [degF] Dr. Tonio Fajardo Work Phone: [facility] 04-18-2023 13:24-0400 Diastolic blood pressure 77 mm[Hg] Dr. Tonio Fajardo Work Phone: [facility] 04-18-2023 13:24-0400 Heart rate 109 /min Dr. Tonio Fajardo Work Phone: [facility] 04-18-2023 13:24-0400 Respiratory rate 16 /min Dr. Tonio Fajardo Work Phone: [facility] 04-18-2023 13:24-0400 Systolic blood pressure 141 mm[Hg] Dr. Tonio Fajardo Work Phone: [facility] 04-17-2023 11:08-0400 Body height 167.[address] Tonio Fajardo Work Phone: [facility] 04-17-2023 11:08-0400 Body mass index (BMI) [Ratio] 30.2 kg/m2 Dr. Tonio Fajardo Work Phone: [facility] 04-17-2023 11:08-0400 Body temperature 98.6 [degF] Dr. Tonio Fajardo Work Phone: [facility] 04-17-2023 11:08-0400 Body weight 84.[address] Tonio Fajardo Work Phone: [facility] 04-17-2023 11:08-0400 Diastolic blood pressure 87 mm[Hg] Dr. Tonio Fajardo Work Phone: [facility] 04-17-2023 11:08-0400 Heart rate 87 /min Dr. Tonio Fajardo Work Phone: [facility] 04-17-2023 11:08-0400 Respiratory rate 18 /min Dr. Tonio Fajardo Work Phone: [facility] 04-17-2023 11:08-0400 SaO2% (BldA) [Mass fraction] 95 % Dr. Tonio Fajardo Work Phone: [facility] 04-17-2023 11:08-0400 Systolic blood pressure 130 mm[Hg] Dr. Tonio Fajardo Work Phone: [facility] 04-02-2023 11:24-0400 Body temperature 98.6 [degF] Dr. Tonio Fajadro Work Phone: [facility] 04-02-2023 11:24-0400 Diastolic blood pressure 55 mm[Hg] Dr. Tonio Fajardo Work Phone: [facility] 04-02-2023 11:24-0400 Heart rate 101 /min Dr. Tonio Fajardo Work Phone: [facility] 04-02-2023 11:24-0400 Respiratory rate 20 /min Dr. Tonio Fajardo Work Phone: [facility] 04-02-2023 11:24-0400 Systolic blood pressure 114 mm[Hg] Dr. Tonio Fajardo Work Phone: [facility] 03-19-2023 10:28-0400 Body temperature 98.2 [degF] Dr. Tonio Fajardo Work Phone: [facility] 03-19-2023 10:28-0400 Diastolic blood pressure 59 mm[Hg] Dr. Tonio Fajardo Work Phone: [facility] 03-19-2023 10:28-0400 Heart rate 106 /min Dr. Tonio Fajardo Work Phone: [facility] 03-19-2023 10:28-0400 Respiratory rate 20 /min Dr. Tonio Fajardo Work Phone: [facility] 03-19-2023 10:28-0400 Systolic blood pressure 120 mm[Hg] Dr. Tonio Fajardo Work Phone: [facility] 02-05-2023 13:10-0400 Body temperature 97.6 [degF] Dr. Tonio Fajardo Work Phone: [facility] 02-05-2023 13:10-0400 Diastolic blood pressure 76 mm[Hg] Dr. Tonio Fajardo Work Phone: [facility] 02-05-2023 13:10-0400 Heart rate 109 /min Dr. Tonio Fajardo Work Phone: [facility] 02-05-2023 13:10-0400 Respiratory rate 18 /min Dr. Tonio Fajardo Work Phone: [facility] 02-05-2023 13:10-0400 Systolic blood pressure 160 mm[Hg] Dr. Tonio Fajardo Work Phone: [facility] 01-08-2023 13:37-0400 Body temperature 96.7 [degF] Dr. Tonio Fajardo Work Phone: [facility] 01-08-2023 13:37-0400 Diastolic blood pressure 46 mm[Hg] Dr. Tonio Fajardo Work Phone: [facility] 01-08-2023 13:37-0400 Heart rate 111 /min Dr. Tonio Fajardo Work Phone: [facility] 01-08-2023 13:37-0400 Systolic blood pressure 121 mm[Hg] Dr. Tonio Fajardo Work Phone: [facility] 12-31-2022 00:58-0400 Body temperature 98.7 [degF] Dr. Tonio Fajardo Work Phone: [facility] 12-31-2022 00:58-0400 Diastolic blood pressure 59 mm[Hg] Dr. Tonio Fajardo Work Phone: [facility] 12-31-2022 00:58-0400 Heart rate 111 /min Dr. Tonio Fajardo Work Phone: [facility] 12-31-2022 00:58-0400 Respiratory rate 26 /min Dr. Tonio Fajardo Work Phone: [facility] 12-31-2022 00:58-0400 SaO2% (BldA) [Mass fraction] 93 % Dr. Tonio Fajardo Work Phone: [facility] 12-31-2022 00:58-0400 Systolic blood pressure 131 mm[Hg] Dr. Tonio Fajardo Work Phone: [facility] 12-30-2022 22:36-0400 Body height 167.[address] Tonio Fajardo Work Phone: [facility] 12-30-2022 22:36-0400 Body mass index (BMI) [Ratio] 30.5 kg/m2 Dr. Tonio Fajardo Work Phone: [facility] 12-30-2022 22:36-0400 Body weight 85.[address] Tonio Fajardo Work Phone: [facility] 12-25-2022 14:53-0400 Body temperature 97.7 [degF] Dr. Tonio Fajardo Work Phone: [facility] 12-25-2022 14:53-0400 Diastolic blood pressure 51 mm[Hg] Dr. Tonio Fajardo Work Phone: [facility] 12-25-2022 14:53-0400 Heart rate 110 /min Dr. Tonio Fajardo Work Phone: [facility] 12-25-2022 14:53-0400 Respiratory rate 18 /min Dr. Tonio Fajardo Work Phone: [facility] 12-25-2022 14:53-0400 Systolic blood pressure 101 mm[Hg] Dr. Tonio Fajardo Work Phone: [facility] 12-12-2022 10:49-0400 Body height 167.[address] Tonio Fajardo Work Phone: [facility] 12-12-2022 10:49-0400 Body mass index (BMI) [Ratio] 29.7 kg/m2 Dr. Tonio Fajardo Work Phone: [facility] 12-12-2022 10:49-0400 Body temperature 97.4 [degF] Dr. Tonio Fajardo Work Phone: [facility] 12-12-2022 10:49-0400 Body weight 83.[address] Tonio Fajardo Work Phone: [facility] 12-12-2022 10:49-0400 Diastolic blood pressure 71 mm[Hg] Dr. Tonio Fajardo Work Phone: [facility] 12-12-2022 10:49-0400 Heart rate 114 /min Dr. Tonio Fajardo Work Phone: [facility] 12-12-2022 10:49-0400 Respiratory rate 18 /min Dr. Tonio Fajardo Work Phone: [facility] 12-12-2022 10:49-0400 SaO2% (BldA) [Mass fraction] 96 % Dr. Tonio Fajardo Work Phone: [facility] 12-12-2022 10:49-0400 Systolic blood pressure 135 mm[Hg] Dr. Tonio Fajardo Work Phone: [facility] 12-11-2022 13:12-0400 Body temperature 96.2 [degF] Dr. Tonio Fajardo Work Phone: [facility] 12-11-2022 13:12-0400 Diastolic blood pressure 87 mm[Hg] Dr. Tonio Fajardo Work Phone: [facility] 12-11-2022 13:12-0400 Heart rate 107 /min Dr. Tonio Fajardo Work Phone: [facility] 12-11-2022 13:12-0400 Respiratory rate 20 /min Dr. Tonio Fajardo Work Phone: [facility] 12-11-2022 13:12-0400 Systolic blood pressure 110 mm[Hg] Dr. Tonio Fajardo Work Phone: [facility] 11-16-2022 13:13-0400 Diastolic blood pressure 49 mm[Hg] Dr. Tonio Fajardo Work Phone: [facility] 11-16-2022 13:13-0400 Heart rate 82 /min Dr. Tnoio Fajardo Work Phone: [facility] 11-16-2022 13:13-0400 Respiratory rate 16 /min Dr. Tonio Fajardo Work Phone: [facility] 11-16-2022 13:13-0400 Systolic blood pressure 125 mm[Hg] Dr. Tonio Fajardo Work Phone: [facility] 11-08-2022 09:52-0400 Body temperature 97.3 [degF] Dr. Tonio Fajardo Work Phone: [facility] 10-16-2022 14:07-0500 Body height 167.[address] Tonio Fajardo Work Phone: [facility] 10-16-2022 14:05-0500 Body mass index (BMI) [Ratio] 29.8 kg/m2 Dr. Tonio Fajardo Work Phone: [facility] 10-16-2022 14:05-0500 Body temperature 97.6 [degF] Dr. Tonio Fajardo Work Phone: [facility] 10-16-2022 14:05-0500 Body weight 83.[address] Tonio Fajardo Work Phone: [facility] 10-16-2022 14:05-0500 Diastolic blood pressure 89 mm[Hg] Dr. Tonio Fajardo Work Phone: [facility] 10-16-2022 14:05-0500 Heart rate 78 /min Dr. Tonio Fajardo Work Phone: [facility] 10-16-2022 14:05-0500 Respiratory rate 18 /min Dr. Tonio Fajardo Work Phone: [facility] 10-16-2022 14:05-0500 SaO2% (BldA) [Mass fraction] 94 % Dr. Tonio Fajardo Work Phone: [facility] 10-16-2022 14:05-0500 Systolic blood pressure 145 mm[Hg] Dr. Tonio Fajardo Work Phone: [facility] 10-16-2022 13:24-0500 Body mass index (BMI) [Ratio] 29.8 kg/m2 Dr. Tonio Fajardo Work Phone: [facility] 10-16-2022 13:24-0500 Body temperature 98.6 [degF] Dr. Tonio Fajardo Work Phone: [facility] 10-16-2022 13:24-0500 Body weight 83.[address] Tonio Fajardo Work Phone: [facility] 10-16-2022 13:24-0500 Diastolic blood pressure 74 mm[Hg] Dr. Tonio Fajardo Work Phone: [facility] 10-16-2022 13:24-0500 Heart rate 75 /min Dr. Tonio Fajardo Work Phone: [facility] 10-16-2022 13:24-0500 Respiratory rate 18 /min Dr. Tonio Fajardo Work Phone: [facility] 10-16-2022 13:24-0500 SaO2% (BldA) [Mass fraction] 94 % Dr. Tonio Fajardo Work Phone: [facility] 10-16-2022 13:24-0500 Systolic blood pressure 146 mm[Hg] Dr. Tonio Fajardo Work Phone: [facility] 10-09-2022 12:59-0500 Body temperature 97.5 [degF] Dr. Tonio Fajardo Work Phone: [facility] 10-09-2022 12:59-0500 Diastolic blood pressure 63 mm[Hg] Dr. Tonio Fajardo Work Phone: [facility] 10-09-2022 12:59-0500 Heart rate 89 /min Dr. Tonio Fajardo Work Phone: [facility] 10-09-2022 12:59-0500 Respiratory rate 22 /min Dr. Tonio Fajardo Work Phone: [facility] 10-09-2022 12:59-0500 Systolic blood pressure 148 mm[Hg] Dr. Tonio Fajardo Work Phone: [facility] 09-18-2022 09:49-0500 Body temperature 97.3 [degF] Dr. Tonio Fajardo Work Phone: [facility] 09-18-2022 09:49-0500 Diastolic blood pressure 44 mm[Hg] Dr. Tonio Fajardo Work Phone: [facility] 09-18-2022 09:49-0500 Heart rate 66 /min Dr. Tonio Fajardo Work Phone: [facility] 09-18-2022 09:49-0500 Respiratory rate 18 /min Dr. Tonio Fajardo Work Phone: [facility] 09-18-2022 09:49-0500 Systolic blood pressure 138 mm[Hg] Dr. Tonio Fajardo Work Phone: [facility] 08-15-2022 13:56-0500 Body temperature 97.1 [degF] Dr. Tonio Fajardo Work Phone: [facility] 08-15-2022 13:56-0500 Diastolic blood pressure 43 mm[Hg] Dr. Tonio Fajardo Work Phone: [facility] 08-15-2022 13:56-0500 Heart rate 73 /min Dr. Tonio Fajardo Work Phone: [facility] 08-15-2022 13:56-0500 Respiratory rate 16 /min Dr. Tonio Fajardo Work Phone: [facility] 08-15-2022 13:56-0500 Systolic blood pressure 139 mm[Hg] Dr. Tonio Fajardo Work Phone: [facility] 08-08-2022 14:00-0500 Body height 167.[address] Tonio Fajardo Work Phone: [facility] 08-08-2022 13:57-0500 Body mass index (BMI) [Ratio] 29.5 kg/m2 Dr. Tonio Fajardo Work Phone: [facility] 08-08-2022 13:57-0500 Body temperature 97.5 [degF] Dr. Tonio Fajardo Work Phone: [facility] 08-08-2022 13:57-0500 Body weight 83.[address] Tonio Fajardo Work Phone: [facility] 08-08-2022 13:57-0500 Diastolic blood pressure 54 mm[Hg] Dr. Tonio Fajardo Work Phone: [facility] 08-08-2022 13:57-0500 Heart rate 67 /min Dr. Tonio Fajardo Work Phone: [facility] 08-08-2022 13:57-0500 Respiratory rate 16 /min Dr. Tonio Fajardo Work Phone: [facility] 08-08-2022 13:57-0500 SaO2% (BldA) [Mass fraction] 94 % Dr. Tonio Fajardo Work Phone: [facility] 08-08-2022 13:57-0500 Systolic blood pressure 109 mm[Hg] Dr. Tonio Fajardo Work Phone: [facility] 07-19-2022 14:30-0500 Body height 167.[address] Tonio Fajardo Work Phone: [facility] Work Phone: 07-19-2022 14:30-0500 Body mass index (BMI) [Ratio] 29 kg/m2 Dr. Tonio Fajardo Work Phone: [facility] 07-19-2022 14:30-0500 Body weight 81.[address] Tonio Fajardo Work Phone: [facility] 07-19-2022 14:30-0500 Diastolic blood pressure 62 mm[Hg] Dr. Tonio Fajardo Work Phone: [facility] 07-19-2022 14:30-0500 Heart rate 66 /min Dr. Tonio Fajardo Work Phone: [facility] 07-19-2022 14:30-0500 Respiratory rate 24 /min Dr. Tonio Fajardo Work Phone: [facility] 07-19-2022 14:30-0500 SaO2% (BldA) [Mass fraction] 97 % Dr. Tonio Fajardo Work Phone: [facility] 07-19-2022 14:30-0500 Systolic blood pressure 117 mm[Hg] Dr. Tonio Fajardo Work Phone: [facility] 07-18-2022 13:29-0500 Body temperature 97.1 [degF] Dr. Tonio Fajardo Work Phone: [facility] 07-18-2022 13:29-0500 Diastolic blood pressure 57 mm[Hg] Dr. Tonio Fajardo Work Phone: [facility] 07-18-2022 13:29-0500 Heart rate 83 /min Dr. Tonio Fajardo Work Phone: [facility] 07-18-2022 13:29-0500 Respiratory rate 16 /min Dr. Tonio Fajardo Work Phone: [facility] 07-18-2022 13:29-0500 Systolic blood pressure 117 mm[Hg] Dr. Tonio Fajardo Work Phone: [facility] 07-17-2022 11:23-0500 Body temperature 98.3 [degF] Dr. Tonio Fajardo Work Phone: [facility] 07-17-2022 11:23-0500 Diastolic blood pressure 58 mm[Hg] Dr. Tonio Fajardo Work Phone: [facility] 07-17-2022 11:23-0500 Heart rate 63 /min Dr. Tonio Fajardo Work Phone: [facility] 07-17-2022 11:23-0500 Respiratory rate 16 /min Dr. Tonio Fajardo Work Phone: [facility] 07-17-2022 11:23-0500 SaO2% (BldA) [Mass fraction] 97 % Dr. Tonio Fajardo Work Phone: [facility] 07-17-2022 11:23-0500 Systolic blood pressure 107 mm[Hg] Dr. Tonio Fajardo Work Phone: [facility] 07-05-2022 14:00-0500 Body mass index (BMI) [Ratio] 29 kg/m2 Dr. Tonio Fajardo Work Phone: [facility] 07-05-2022 14:00-0500 Body temperature 96.9 [degF] Dr. Tonio Fajardo Work Phone: [facility] 07-05-2022 14:00-0500 Body weight 81.[address] Tonio Fajardo Work Phone: [facility] 07-05-2022 14:00-0500 Diastolic blood pressure 63 mm[Hg] Dr. Tonio Fajardo Work Phone: [facility] 07-05-2022 14:00-0500 Heart rate 66 /min Dr. Tonio Fajardo Work Phone: [facility] 07-05-2022 14:00-0500 Respiratory rate 16 /min Dr. Tonio Fajardo Work Phone: [facility] 07-05-2022 14:00-0500 SaO2% (BldA) [Mass fraction] 97 % Dr. Tonio Fajardo Work Phone: [facility] 07-05-2022 14:00-0500 Systolic blood pressure 156 mm[Hg] Dr. Tonio Fajardo Work Phone: [facility] 06-28-2022 14:11-0500 Body mass index (BMI) [Ratio] 29.6 kg/m2 Dr. Tonio Fajardo Work Phone: [facility] 06-28-2022 14:11-0500 Body temperature 97.1 [degF] Dr. Tonio Fajardo Work Phone: [facility] 06-28-2022 14:11-0500 Body weight 83.[address] Tonio Fajardo Work Phone: [facility] 06-28-2022 14:11-0500 Diastolic blood pressure 58 mm[Hg] Dr. Tonio Fajardo Work Phone: [facility] 06-28-2022 14:11-0500 Heart rate 77 /min Dr. Tonio Fajardo Work Phone: [facility] 06-28-2022 14:11-0500 Respiratory rate 16 /min Dr. Tonio Fajardo Work Phone: [facility] 06-28-2022 14:11-0500 SaO2% (BldA) [Mass fraction] 89 % Dr. Tonio Fajardo Work Phone: [facility] 06-28-2022 14:11-0500 Systolic blood pressure 124 mm[Hg] Dr. Tonio Fajardo Work Phone: [facility] 06-21-2022 13:57-0400 Body mass index (BMI) [Ratio] 29.8 kg/m2 Dr. Tonio Fajardo Work Phone: [facility] 06-21-2022 13:57-0400 Body temperature 97 [degF] Dr. Tonio Fajardo Work Phone: [facility] 06-21-2022 13:57-0400 Body weight 83.[address] Tonio Fajardo Work Phone: [facility] 06-21-2022 13:57-0400 Diastolic blood pressure 88 mm[Hg] Dr. Tonio Fajardo Work Phone: [facility] 06-21-2022 13:57-0400 Heart rate 70 /min Dr. Tonio Fajardo Work Phone: [facility] 06-21-2022 13:57-0400 Respiratory rate 18 /min Dr. Tonio Fajardo Work Phone: [facility] 06-21-2022 13:57-0400 SaO2% (BldA) [Mass fraction] 94 % Dr. Tonio Fajardo Work Phone: [facility] 06-21-2022 13:57-0400 Systolic blood pressure 139 mm[Hg] Dr. Tonio Fajardo Work Phone: [facility] 06-14-2022 13:55-0400 Body height 167.[address] Tonio Fajardo Work Phone: [facility] Work Phone: 06-14-2022 13:53-0400 Body mass index (BMI) [Ratio] 29.5 kg/m2 Dr. Tonio Fajardo Work Phone: [facility] 06-14-2022 13:53-0400 Body temperature 97 [degF] Dr. Tonio Fajardo Work Phone: [facility] 06-14-2022 13:53-0400 Body weight 83.[address] Tonio Fajardo Work Phone: [facility] 06-14-2022 13:53-0400 Diastolic blood pressure 61 mm[Hg] Dr. Tonio Fajardo Work Phone: [facility] 06-14-2022 13:53-0400 Heart rate 66 /min Dr. Tonio Fajardo Work Phone: [facility] 06-14-2022 13:53-0400 Respiratory rate 16 /min Dr. Tonio Fajardo Work Phone: [facility] 06-14-2022 13:53-0400 SaO2% (BldA) [Mass fraction] 94 % Dr. Tonio Fajardo Work Phone: [facility] 06-14-2022 13:53-0400 Systolic blood pressure 137 mm[Hg] Dr. Tonio Fajardo Work Phone: [facility] 06-12-2022 10:32-0400 Body temperature 97.3 [degF] Dr. Tonio Fajardo Work Phone: [facility] 06-12-2022 10:32-0400 Diastolic blood pressure 63 mm[Hg] Dr. Tonio Fajardo Work Phone: [facility] 06-12-2022 10:32-0400 Heart rate 59 /min Dr. Tonio Fajardo Work Phone: [facility] 06-12-2022 10:32-0400 Respiratory rate 18 /min Dr. Tonio Fajrado Work Phone: [facility] 06-12-2022 10:32-0400 Systolic blood pressure 149 mm[Hg] Dr. Tonio Fajardo Work Phone: [facility] 05-30-2022 14:08-0400 Body height 167.[address] Tonio Fajardo Work Phone: [facility] Work Phone: 05-30-2022 14:05-0400 Body mass index (BMI) [Ratio] 29.7 kg/m2 Dr. Tonio Fajardo Work Phone: [facility] 05-30-2022 14:05-0400 Body temperature 97 [degF] Dr. Tonio Fajardo Work Phone: [facility] 05-30-2022 14:05-0400 Body weight 83.[address] Tonio Fajardo Work Phone: [facility] 05-30-2022 14:05-0400 Diastolic blood pressure 64 mm[Hg] Dr. Tonio Fajardo Work Phone: [facility] 05-30-2022 14:05-0400 Heart rate 65 /min Dr. Tonio Fajardo Work Phone: [facility] 05-30-2022 14:05-0400 Respiratory rate 18 /min Dr. Tonio Fajardo Work Phone: [facility] 05-30-2022 14:05-0400 SaO2% (BldA) [Mass fraction] 95 % Dr. Tonio Fajardo Work Phone: [facility] 05-30-2022 14:05-0400 Systolic blood pressure 145 mm[Hg] Dr. Tonio Fajardo Work Phone: [facility] 05-29-2022 14:48-0400 Body temperature 97.6 [degF] Dr. Tonio Fajardo Work Phone: [facility] Work Phone: 05-29-2022 14:48-0400 Diastolic blood pressure 51 mm[Hg] Dr. Tonio Fajardo Work Phone: [facility] Work Phone: 05-29-2022 14:48-0400 Heart rate 75 /min Dr. Tonio Fajardo Work Phone: [facility] Work Phone: 05-29-2022 14:48-0400 Systolic blood pressure 158 mm[Hg] Dr. Tonio Fajadro Work Phone: [facility] Work Phone: 05-24-2022 14:31-0400 Body height 167.[address] Tonio Fajardo Work Phone: [facility] Work Phone: 05-24-2022 14:22-0400 Body mass index (BMI) [Ratio] 29.7 kg/m2 Dr. Tonio Fajardo Work Phone: [facility] 05-24-2022 14:22-0400 Body temperature 98.2 [degF] Dr. Tonio Fajardo Work Phone: [facility] 05-24-2022 14:22-0400 Body weight 83.[address] Tonio Fajardo Work Phone: [facility] 05-24-2022 14:22-0400 Diastolic blood pressure 74 mm[Hg] Dr. Tonio Fajardo Work Phone: [facility] 05-24-2022 14:22-0400 Heart rate 74 /min Dr. Tonio Fajardo Work Phone: [facility] 05-24-2022 14:22-0400 Respiratory rate 15 /min Dr. Tonio Fajardo Work Phone: [facility] 05-24-2022 14:22-0400 SaO2% (BldA) [Mass fraction] 96 % Dr. Tonio Fajardo Work Phone: [facility] 05-24-2022 14:22-0400 Systolic blood pressure 135 mm[Hg] Dr. Tonio Fajardo Work Phone: [facility] 05-24-2022 13:26-0400 Body temperature 96.7 [degF] Dr. Tonio Fajardo Work Phone: [facility] Work Phone: 05-24-2022 13:26-0400 Diastolic blood pressure 57 mm[Hg] Dr. Tonio Fajardo Work Phone: [facility] Work Phone: 05-24-2022 13:26-0400 Heart rate 81 /min Dr. Tonio Fajardo Work Phone: [facility] Work Phone: 05-24-2022 13:26-0400 Respiratory rate 18 /min Dr. Tonio Fajardo Work Phone: [facility] Work Phone: 05-24-2022 13:26-0400 Systolic blood pressure 141 mm[Hg] Dr. Tonio Fajardo Work Phone: [facility] Work Phone: 05-17-2022 15:07-0400 Body temperature 97.5 [degF] Dr. Toino Fajardo Work Phone: [facility] Work Phone: 05-17-2022 15:07-0400 Diastolic blood pressure 63 mm[Hg] Dr. Tonio Fajardo Work Phone: [facility] Work Phone: 05-17-2022 15:07-0400 Heart rate 71 /min Dr. Tonio Fajardo Work Phone: [facility] Work Phone: 05-17-2022 15:07-0400 Respiratory rate 20 /min Dr. Tonio Fajardo Work Phone: [facility] Work Phone: 05-17-2022 15:07-0400 Systolic blood pressure 142 mm[Hg] Dr. Tonio Fajardo Work Phone: [facility] Work Phone: 05-11-2022 16:01-0400 Body height 167.[address] Tonio Fajardo Work Phone: [facility] Work Phone: 05-11-2022 15:54-0400 Body mass index (BMI) [Ratio] 29.4 kg/m2 Dr. Tonio Fajardo Work Phone: [facility] Work Phone: 05-11-2022 15:54-0400 Body temperature 98.4 [degF] Dr. Tonio Fajardo Work Phone: [facility] Work Phone: 05-11-2022 15:54-0400 Body weight 82.[address] Tonio Fajardo Work Phone: [facility] Work Phone: 05-11-2022 15:54-0400 Diastolic blood pressure 67 mm[Hg] Dr. Tonio Fajardo Work Phone: [facility] Work Phone: 05-11-2022 15:54-0400 Heart rate 63 /min Dr. Tonio Fajardo Work Phone: [facility] Work Phone: 05-11-2022 15:54-0400 Respiratory rate 16 /min Dr. Tonio Fajardo Work Phone: [facility] Work Phone: 05-11-2022 15:54-0400 SaO2% (BldA) [Mass fraction] 96 % Dr. Tonio Fajardo Work Phone: [facility] Work Phone: 05-11-2022 15:54-0400 Systolic blood pressure 100 mm[Hg] Dr. Tonio Fajardo Work Phone: [facility] Work Phone: 05-11-2022 08:32-0400 Body mass index (BMI) [Ratio] 29.4 kg/m2 Dr. Tonio Fajardo Work Phone: [facility] Work Phone: 05-11-2022 08:32-0400 Body temperature 97.2 [degF] Dr. Tonio Fajardo Work Phone: [facility] Work Phone: 05-11-2022 08:32-0400 Body weight 82.[address] Tonio Fajardo Work Phone: [facility] Work Phone: 05-11-2022 08:32-0400 Diastolic blood pressure 62 mm[Hg] Dr. Tonio Fajardo Work Phone: [facility] Work Phone: 05-11-2022 08:32-0400 Heart rate 73 /min Dr. Tonio Fajardo Work Phone: [facility] Work Phone: 05-11-2022 08:32-0400 Respiratory rate 20 /min Dr. Tonio Fajardo Work Phone: [facility] Work Phone: 05-11-2022 08:32-0400 SaO2% (BldA) [Mass fraction] 96 % Dr. Tonio Fajardo Work Phone: [facility] Work Phone: 05-11-2022 08:32-0400 Systolic blood pressure 145 mm[Hg] Dr. Tonio Fajardo Work Phone: [facility] Work Phone: 04-28-2022 11:40-0400 Body temperature 97.4 [degF] Dr. Tonio Fajardo Work Phone: [facility] Work Phone: 04-28-2022 11:40-0400 Diastolic blood pressure 46 mm[Hg] Dr. Tonio Fajardo Work Phone: [facility] Work Phone: 04-28-2022 11:40-0400 Heart rate 66 /min Dr. Tonio Fajardo Work Phone: [facility] Work Phone: 04-28-2022 11:40-0400 Respiratory rate 20 /min Dr. Tonio Fajardo Work Phone: [facility] Work Phone: 04-28-2022 11:40-0400 SaO2% (BldA) [Mass fraction] 96 % Dr. Tonio Fajardo Work Phone: [facility] Work Phone: 04-28-2022 11:40-0400 Systolic blood pressure 138 mm[Hg] Dr. Tonio Fajardo Work Phone: [facility] Work Phone: 04-28-2022 09:44-0400 Inhaled oxygen flow rate 2 L/min Dr. Tonio Fajardo Work Phone: [facility] Work Phone: 04-28-2022 08:15-0400 Body height 167.[address] Tonio Fajardo Work Phone: [facility] Work Phone: 04-28-2022 08:15-0400 Body mass index (BMI) [Ratio] 28 kg/m2 Dr. Tonio Fajardo Work Phone: [facility] Work Phone: 04-28-2022 08:15-0400 Body weight 78.[address] Tonio Fajardo Work Phone: [facility] Work Phone: 04-26-2022 13:47-0400 Body temperature 97 [degF] Dr. Tonio Fajardo Work Phone: [facility] Work Phone: 04-26-2022 13:47-0400 Diastolic blood pressure 33 mm[Hg] Dr. Tonio Fajardo Work Phone: [facility] Work Phone: 04-26-2022 13:47-0400 Heart rate 80 /min Dr. Tonio Fajardo Work Phone: [facility] Work Phone: 04-26-2022 13:47-0400 Respiratory rate 18 /min Dr. Tonio Fajardo Work Phone: [facility] Work Phone: 04-26-2022 13:47-0400 Systolic blood pressure 118 mm[Hg] Dr. Tonio Fajardo Work Phone: [facility] Work Phone: 04-14-2022 11:11-0400 Body height 167.[address] Tonio Fajardo Work Phone: [facility] Work Phone: 04-14-2022 11:11-0400 Body mass index (BMI) [Ratio] 30.7 kg/m2 Dr. Tonio Fajardo Work Phone: [facility] Work Phone: 04-14-2022 11:11-0400 Body temperature 95.8 [degF] Dr. Tonio Fajardo Work Phone: [facility] Work Phone: 04-14-2022 11:11-0400 Body weight 86.[address] Tonio Fajardo Work Phone: [facility] Work Phone: 04-14-2022 11:11-0400 Diastolic blood pressure 68 mm[Hg] Dr. Tonio Fajardo Work Phone: [facility] Work Phone: 04-14-2022 11:11-0400 Heart rate 34 /min Dr. Tonio Fajardo Work Phone: [facility] Work Phone: 04-14-2022 11:11-0400 Respiratory rate 16 /min Dr. Tonio Fajardo Work Phone: [facility] Work Phone: 04-14-2022 11:11-0400 SaO2% (BldA) [Mass fraction] 91 % Dr. Tonio Fajardo Work Phone: [facility] Work Phone: 04-14-2022 11:11-0400 Systolic blood pressure 163 mm[Hg] Dr. Tonio Fajardo Work Phone: [facility] Work Phone: 04-14-2022 10:36-0400 Body temperature 96.7 [degF] Dr. Tonio Fajardo Work Phone: [facility] Work Phone: 04-14-2022 10:36-0400 Diastolic blood pressure 71 mm[Hg] Dr. Tonio Fajardo Work Phone: [facility] Work Phone: 04-14-2022 10:36-0400 Heart rate 64 /min Dr. Tonio Fajardo Work Phone: [facility] Work Phone: 04-14-2022 10:36-0400 Respiratory rate 23 /min Dr. Tonio Fajardo Work Phone: [facility] Work Phone: 04-14-2022 10:36-0400 SaO2% (BldA) [Mass fraction] 94 % Dr. Tonio Fajardo Work Phone: [facility] Work Phone: 04-14-2022 10:36-0400 Systolic blood pressure 153 mm[Hg] Dr. Tonio Fajardo Work Phone: [facility] Work Phone: 04-14-2022 08:24-0400 Body mass index (BMI) [Ratio] 30.2 kg/m2 Dr. Tonio Fajardo Work Phone: [facility] Work Phone: 04-14-2022 08:24-0400 Body weight 85.[address] Tonio Fajardo Work Phone: [facility] Work Phone: 04-12-2022 13:50-0400 Body temperature 97.8 [degF] Dr. Tonio Fajardo Work Phone: [facility] Work Phone: 04-12-2022 13:50-0400 Diastolic blood pressure 74 mm[Hg] Dr. Tonio Fajardo Work Phone: [facility] Work Phone: 04-12-2022 13:50-0400 Heart rate 69 /min Dr. Tonio Fajardo Work Phone: [facility] Work Phone: 04-12-2022 13:50-0400 Respiratory rate 18 /min Dr. Tonio Fajardo Work Phone: [facility] Work Phone: 04-12-2022 13:50-0400 Systolic blood pressure 107 mm[Hg] Dr. Tonio Fajardo Work Phone: [facility] Work Phone: 04-05-2022 13:34-0400 Body temperature 101.61 [degF] Steven Praisler-Wood GREASE P[employer]ER.MOVIE PROJECTIONIST Work Phone: [facility] 04-05-2022 13:34-0400 Body weight 87.09 kg Steevn Praisler-Wood GREASE PACKER.MOVIE PROJECTIONIST Work Phone: [facility] 04-05-2022 13:34-0400 Diastolic blood pressure 76 mm[Hg] Steven Praisler-Wood GREASE P[employer]ER.MOVIE PROJECTIONIST Work Phone: [facility] 04-05-2022 13:34-0400 Heart rate 76 /min Steven Praisler-Wood GREASE P[employer]ER.MOVIE PROJECTIONIST Work Phone: [facility] 04-05-2022 13:34-0400 Respiratory rate 16 /min Steven Praisler-Wood GREASE PACKER.MOVIE PROJECTIONIST Work Phone: [facility] 04-05-2022 13:34-0400 SaO2% (BldA) [Mass fraction] 94 % Steven Praisler-Wood GREASE PACKER.MOVIE PROJECTIONIST Work Phone: [facility] 04-05-2022 13:34-0400 Systolic blood pressure 122 mm[Hg] Steven Praisler-Wood GREASE PACKER.MOVIE PROJECTIONIST Work Phone: [facility] 03-01-2022 13:16-0400 Body temperature 97.6 [degF] Dr. Tonio Fajardo Work Phone: [facility] Work Phone: 03-01-2022 13:16-0400 Diastolic blood pressure 73 mm[Hg] Dr. Tonio Fajardo Work Phone: [facility] Work Phone: 03-01-2022 13:16-0400 Heart rate 70 /min Dr. Tonio Fajardo Work Phone: [facility] Work Phone: 03-01-2022 13:16-0400 Respiratory rate 18 /min Dr. Tonio Fajardo Work Phone: [facility] Work Phone: 03-01-2022 13:16-0400 Systolic blood pressure 141 mm[Hg] Dr. Tonio Fajardo Work Phone: [facility] Work Phone: 02-08-2022 13:06-0400 Body temperature 98.1 [degF] Dr. Tonio Fajardo Work Phone: [facility] Work Phone: 02-08-2022 13:06-0400 Diastolic blood pressure 63 mm[Hg] Dr. Tonio Fajardo Work Phone: [facility] Work Phone: 02-08-2022 13:06-0400 Heart rate 83 /min Dr. Tonio Fajardo Work Phone: [facility] Work Phone: 02-08-2022 13:06-0400 Respiratory rate 20 /min Dr. Tonio Fajardo Work Phone: [facility] Work Phone: 02-08-2022 13:06-0400 Systolic blood pressure 131 mm[Hg] Dr. Tonio Fajardo Work Phone: [facility] Work Phone: 01-17-2022 10:56-0400 Body height 167.[address] Tonio Fajardo Work Phone: [facility] Work Phone: 01-17-2022 10:56-0400 Body mass index (BMI) [Ratio] 31.9 kg/m2 Dr. Tonio Fajardo Work Phone: [facility] Work Phone: 01-17-2022 10:56-0400 Body weight 89.[address] Tonio Fajardo Work Phone: [facility] Work Phone: 01-17-2022 10:56-0400 Diastolic blood pressure 44 mm[Hg] Dr. Tonio Fajardo Work Phone: [facility] Work Phone: 01-17-2022 10:56-0400 Heart rate 64 /min Dr. Tonio Fajardo Work Phone: [facility] Work Phone: 01-17-2022 10:56-0400 Respiratory rate 22 /min Dr. Tonio Fajardo Work Phone: [facility] Work Phone: 01-17-2022 10:56-0400 SaO2% (BldA) [Mass fraction] 95 % Dr. Tonio Fajardo Work Phone: [facility] Work Phone: 01-17-2022 10:56-0400 Systolic blood pressure 101 mm[Hg] Dr. Tonio Fajardo Work Phone: [facility] Work Phone: 01-17-2022 10:56-0400 Body height 167.[address] Tonio Fajardo Work Phone: [facility] Work Phone: 01-17-2022 10:56-0400 Body mass index (BMI) [Ratio] 31.9 kg/m2 Dr. Tonio Fajardo Work Phone: [facility] Work Phone: 01-17-2022 10:56-0400 Body weight 89.[address] Tonio Fajardo Work Phone: [facility] Work Phone: 01-17-2022 10:56-0400 Diastolic blood pressure 44 mm[Hg] Dr. Tonio Fajardo Work Phone: [facility] Work Phone: 01-17-2022 10:56-0400 Heart rate 64 /min Dr. Tonio Fajardo Work Phone: [facility] Work Phone: 01-17-2022 10:56-0400 Respiratory rate 22 /min Dr. Tonio Fajardo Work Phone: [facility] Work Phone: 01-17-2022 10:56-0400 SaO2% (BldA) [Mass fraction] 95 % Dr. Tonio Fajardo Work Phone: [facility] Work Phone: 01-17-2022 10:56-0400 Systolic blood pressure 101 mm[Hg] Dr. Tonio Fajardo Work Phone: [facility] Work Phone: 01-04-2022 12:59-0400 Body temperature 96.4 [degF] Dr. Tonio Fajardo Work Phone: [facility] Work Phone: 01-04-2022 12:59-0400 Diastolic blood pressure 64 mm[Hg] Dr. Tonio Fajardo Work Phone: [facility] Work Phone: 01-04-2022 12:59-0400 Heart rate 70 /min Dr. Tonio Fajardo Work Phone: [facility] Work Phone: 01-04-2022 12:59-0400 Respiratory rate 16 /min Dr. Tonio Fajardo Work Phone: [facility] Work Phone: 01-04-2022 12:59-0400 Systolic blood pressure 135 mm[Hg] Dr. Tonio Fajardo Work Phone: [facility] Work Phone: 12-21-2021 13:10-0400 Body temperature 97 [degF] [facility] Work Phone: 12-21-2021 13:10-0400 Diastolic blood pressure 62 mm[Hg] [facility] Work Phone: 12-21-2021 13:10-0400 Heart rate 88 /min [facility] Work Phone: 12-21-2021 13:10-0400 Systolic blood pressure 173 mm[Hg] [facility] Work Phone: 12-18-2021 00:38-0400 Respiratory rate 16 /min [facility] Work Phone: 11-29-2021 13:03-0400 Body temperature 97.4 [degF] [facility] Work Phone: 11-29-2021 13:03-0400 Diastolic blood pressure 43 mm[Hg] [facility] Work Phone: 11-29-2021 13:03-0400 Heart rate 69 /min [facility] Work Phone: 11-29-2021 13:03-0400 Respiratory rate 16 /min [facility] Work Phone: 11-29-2021 13:03-0400 Systolic blood pressure 134 mm[Hg] [facility] Work Phone: 11-09-2021 13:07-0400 Body temperature 97 [degF] [facility] Work Phone: 11-09-2021 13:07-0400 Diastolic blood pressure 41 mm[Hg] [facility] Work Phone: 11-09-2021 13:07-0400 Heart rate 73 /min [facility] Work Phone: 11-09-2021 13:07-0400 Respiratory rate 18 /min [facility] Work Phone: 11-09-2021 13:07-0400 Systolic blood pressure 126 mm[Hg] [facility] Work Phone: Encounters Encounter Date Encounter Type Care Provider Facility Start: 04-23-2025 Dr. Tonio Mccallum DO [facility] Work Phone: Start: 04-21-2025 Dr. Tonio Mccallum DO [facility] Work Phone: Start: 04-20-2025 Dr. Tonio Mccallum DO [facility] Work Phone: Start: 04-20-[address] [facility] ility:[facility] Start: 04-20-2025 End: 04-23-2025 Evaluation and management of inpatient [facility] Facility:[facility] Start: 04-20-2025 End: 04-23-2025 Dr. Tonio Mccallum DO -Progressive Care Unit Work Phone: Start: 04-19-[address] [facility] ility:[facility] Start: 04-19-[address] Tonio Fajadro DO Work Phone: -Progressive Care Unit Start: 04-19-2025 Dr. Kwaku Narayanan DO -Progressive Care Unit Work Phone: Start: 04-19-2025 Dr. Tonio robertson DO Work Phone: -Emergency Department Work Phone: Start: 04-17-2025 End: 04-19-2025 Evaluation and management of inpatient Dr. Tonio Fajardo DO Work Phone: -Transitional Care Unit Start: 04-17-2025 End: 04-19-2025 Dr. Valdez Olivo MD -Transitional Care Unit Start: 04-16-2025 ambulatory Tonio Fajardo Facility: [facility] Start: 04-13-2025 End: 04-17-2025 Evaluation and management of inpatient DR DAVID STERLING MD [facility] Start: 04-12-2025 End: 04-13-2025 Dr. Tonio Fajardo DO Work Phone: -Emergency Department Work Phone: Start: 04-12-2025 End: 04-13-2025 Emergency department patient visit Dr. Tonio Fajardo DO Work Phone: -Emergency Department Start: 04-10-2025 End: 04-13-2025 Dr. Valdez Olivo MD -Transitional Care Unit Start: 04-10-2025 End: 04-13-2025 Evaluation and management of inpatient Dr. Tonio Fajardo DO Work Phone: -Transitional Care Unit Start: 04-10-2025 End: 04-10-2025 Carol Sousa [facility] Work Phone: Start: 04-10-2025 Dr. Nicola Roman MD [facility] Work Phone: Start: 04-10-2025 End: 04-10-[address] Tonio Fajardo DO Work Phone: -[facility] Start: 04-10-2025 End: 04-10-2025 Dr. Issa Looney MD [facility] Work Phone: Start: 04-09-2025 Dr. [facility] H[facility] Start: 04-09-2025 Dr. Nicola Roman MD [facility] Work Phone: Start: 04-08-2025 Dr. Issa Looney MD [facility] Start: 04-08-2025 Dr. Nic[facility] Roman [facility] Work Phone: Start: 04-07-2025 Dr. Nicola Roman MD [facility] Work Phone: Start: 04-06-2025 Dr. Deric Lantigua MD [facility] Work Phone: Start: 04-05-2025 ambulatory Deric Lantigua Facility: [facility] Start: 04-05-2025 End: 04-10-2025 Evaluation and management [...] 04-02-2025 End: 04-02-2025 ambulatory Carmelina E Aida Facility:[facility] Start: 03-27-2025 End: 03-27-[address] Tonio Fajardo DO Work Phone: -Pulmonary Services/Neurology Start: 03-27-2025 End: 03-27-2025 Patient encounter procedure Leslie DAMIAN -Pulmonary Services/Neurology Work Phone: Start: 03-27-2025 End: 03-27-2025 Leslie DAMIAN -Pulmonary Services/Neurology Work Phone: Start: 03-27-2025 End: 03-27-2025 ambulatory Leslie DAMIAN Facility:[facility] Start: 03-18-2025 End: 03-18-[address] Tonio Fajardo DO Work Phone: -[facility] Start: 03-18-2025 End: 03-18-[address] Tonio Fajardo DO -[facility] Start: 03-18-2025 End: 03-18-2025 Dr. Tonio Fajardo DO -[facility] Start: 03-17-2025 End: 03-17-2025 Patient encounter procedure Leslie DAMIAN -[facility] Work Phone: Start: 03-17-2025 End: 03-17-2025 Leslie DAMIAN -[facility] Work Phone: Start: 03-17-2025 End: 03-18-[address] Tonio Fajardo DO Work Phone: -[facility] Start: 03-15-2025 End: 03-15-2025 Dr. Alex Matias MD -Emergency [facility] Work Phone: Start: 03-15-2025 End: 03-15-2025 Emergency department patient visit Dr. Tonio Fajardo DO Work Phone: -Emergency Department Work Phone: Start: 03-09-2025 Non-patient / Non-visit Dr. Deric Lantigua MD [facility] Work Phone: Start: 03-09-2025 Dr. Deric Lantigua MD [facility] Work Phone: Start: 03-09-2025 Non-patient / Non-visit Dr. Willian Glaser MD [facility] Start: 03-09-2025 Dr. Willian Glaser MD [facility] Start: 03-08-2025 Non-patient / Non-visit Dr. Marjorie castellano MD [facility] Start: 03-08-2025 Dr. Marjorie Green MD [facility] Start: 03-07-2025 Non-patient / Non-visit Dr. Deric Lantigua MD [facility] Work Phone: Start: 03-07-2025 Dr. Deric Lantigua MD [facility] Work Phone: Start: 03-06-2025 Non-patient / Non-visit Dr. Deric Lantigua MD [facility] Work Phone: Start: 03-06-2025 Dr. Deric Lantigua MD [facility] Work Phone: Start: 03-06-2025 Non-patient / Non-visit Dr. Marjorie castellano MD [facility] Start: 03-06-2025 Dr. Marjorie Green MD [facility] Start: 03-05-2025 ambulatory [facility] Start: 03-05-2025 Non-patient / Non-visit [facility]. Marjorie [facility]ellano [facility] Start: 03-05-2025 Dr. Marjorie Green MD -[facility] Start: 03-05-2025 Non-patient / Non-visit Dr. Deric Lantigua MD [facility] Work Phone: Start: 03-05-2025 Dr. Deric Lantigua MD -[facility] Work Phone: Start: 03-04-2025 ambulatory [facility] Start: 03-04-2025 End: 03-09-2025 Evaluation and management of inpatient Dr. Nicola Lindsey DO -Progressive Care Unit Work Phone: Start: 03-04-2025 End: 03-09-2025 Dr. Deric Lantigua MD -Progressive Care U nit Work Phone: Start: 11-06-[address] Russ Zamora MD -[facility] Start: 11-06-2024 End: 11-06-[address] Russ Zamora MD -[facility] Work Phone: Start: 11-06-2024 End: 11-06-2024 ambulatory [facility] Start: 10-30-2024 End: 10-30-[address] Tonio Fajardo DO Work Phone: [facility] Work Phone: Start: 10-30-2024 End: 10-30-[address] Russ Zamora MD -[facility] Work Phone: Start: 10-30-2024 End: 10-30-2024 ambulatory [facility] Facility:[facility] Start: 10-23-2024 End: 10-23-2024 Patient encounter procedure Lorie ZHONG -[facility] Work Phone: Start: 10-23-2024 End: 10-23-2024 ambulatory [facility] Facility:[facility] Start: 10-20-2024 End: 10-20-[address] Tonio Fajardo DO Work Phone: [facility] Work Phone: Start: 10-20-2024 End: 10-20-[address] Tonio Fajardo DO -Laboratory, [facility] Start: 10-20-2024 End: 10-20-2024 ambulatory [facility] Facility:[facility] Start: 10-17-2024 ambulatory [facility]: [facility] Start: 10-17-2024 Non-patient / Non-visit Dr. Tyrell zuniga DO -[facility] Start: 10-16-2024 End: 10-16-[address] Tonio Fajardo DO Work Phone: [facility] Work Phone: Start: 10-16-2024 End: 10-16-2024 Patient encounter procedure Lorie Mart DERRICK ENGINEER-C -Pulmonary Services/Neurology Work Phone: Start: 10-16-2024 End: 10-16-2024 ambulatory [facility] Facility:[facility] Start: 09-25-2024 End: 09-25-2024 Patient encounter procedure Leslie Arriaga PA -[facility] Work Phone: Start: 09-25-2024 End: 09-25-2024 ambulatory [facility] Start: 09-25-2024 End: 09-25-2024 ambulatory [facility] Facility:[facility] Start: 07-03-2024 End: 07-03-[address] Joaquim Suárez DPM -Laboratory, Specimen Work Phone: Start: 07-03-2024 End: 07-03-2024 ambulatory [facility] Facility:[facility] Start: 06-17-2024 End: 06-17-2024 ambulatory [facility] Facility:[facility] Start: 05-05-2024 End: 05-05-2024 ambulatory [facility] Facility:[facility] Start: 04-28-2024 End: 04-28-2024 ambulatory [facility] Facility:[facility] Start: 12-24-2023 End: 12-24-[address] Tonio Fajardo Work Phone: [facility] Work Phone: Start: 12-24-2023 End: 12-24-[address] [facility] Work [facility] Start: 11-12-2023 End: 11-12-[address] Tonio Fajardo Work Phone: [facility] Work Phone: Start: 11-06-[address] Tonio Fajardo Work Phone: [facility] Start: 10-31-2023 End: 10-31-[address] Tonio Fajardo Work Phone: [facility] Work Phone: Start: 10-18-2023 End: 10-18-[address] Tonio Fajardo Work Phone: [facility] Work Phone: Start: 10-12-2023 End: 10-12-[address] Tonio Fajardo Work Phone: [facility] Work Phone: Start: 10-12-2023 End: 10-12-[address] Tonio Fajardo Work Phone: [facility]-Cat Scan, [facility] Work Phone: Start: 08-29-2023 End: 08-29-[address] Tonio Fajardo Work Phone: [facility] Work Phone: Start: 08-22-2023 Non-patient / Non-visit Dr. Min Fajardo Work Phone: [facility] Start: 08-22-2023 End: 08-22-[address] Tonio Fajardo Work Phone: [facility]-Cardiovascula r Services Work Phone: Start: 07-26-2023 End: 07-26-[address] Tonio Fajardo Work Phone: [facility] Work Phone: Start: 07-26-2023 End: 07-26-[address] Tonio Fajardo Work Phone: [facility] Work Phone: Start: 07-25-2023 End: 07-25-[address] Tonio Fajardo Work Phone: [facility]-Pulmonary Medicine [facility] Work Phone: Start: 06-22-2023 End: 06-22-[address] Tonio Fajardo Work Phone: [facility] Work Phone: Start: 06-22-2023 End: 06-22-[address] Tonio Fajardo Work Phone: [facility]-Laboratory, Specimen Work Phone: Start: 06-08-2023 End: 06-08-2023 Admission to same day surgery center Dr. Tonio Fajardo Work Phone: [facility]-Surgical Day Care Start: 06-08-2023 End: 06-08-[address] Tonio Fajardo Work Phone: [facility] Work Phone: Start: 05-02-2023 End: 05-19-[address] Tonio F[facility]ardo [facility] Work [facility]: Start: 04-20-2023 Non-patient / Non-visit Dr. Min Fajardo Work Phone: [facility] Start: 04-18-2023 End: 04-19-[address] Tonio Fajardo Work Phone: [facility] Work Phone: Start: 04-18-2023 End: 04-19-[address] oTnio Fajardo Work Phone: [facility] Work Phone: Start: 04-17-[address] Tonio Fajardo Work Phone: [facility] Start: 04-17-2023 End: 04-17-[address] Tonio Fajardo Work Phone: [facility] Work Phone: Start: 04-10-2023 End: 04-10-[address] Tonio Fajardo Work Phone: [facility] Work Phone: Start: 04-10-2023 End: 04-10-[address] Tonio Fajardo Work Phone: [place] Work Phone: Start: 04-02-2023 Non-patient / Non-visit Dr. Min Fajardo Work Phone: [facility] Start: 04-02-[address] Tonio Fajardo [facility] Work Phone: Start: 03-19-2023 Non-patient / Non-visit Dr. Min Fajardo Work Phone: [facility] Start: 03-19-2023 End: 03-19-[address] Tonio Fajardo Work Phone: [facility] Work Phone: Start: 03-19-2023 End: 03-19-[address] Tonio Fajardo [facility] Work [facility]: Start: 03-05-2023 Non-patient / Non-visit Dr. Min Fajardo Work Phone: [facility] Start: 02-23-2023 End: 02-23-[address] Tonio Fajardo Work Phone: [facility] Work Phone: Start: 02-19-2023 Non-patient / Non-visit Dr. Min Fajardo Work Phone: [facility] Start: 02-05-2023 Non-patient / Non-visit Dr. Min Fajardo Work Phone: [facility] Start: 02-05-2023 End: 02-16-[address] Tonio Fajardo Work Phone: [facility] Work Phone: Start: 02-05-2023 End: 02-16-[address] Tonio Fajardo [facility] Work Phone: Start: 01-22-2023 Non-patient / Non-visit Dr. Min Fajardo Work Phone: [facility] Start: 01-08-2023 Non-patient / Non-visit Dr. Min Fajardo Work Phone: [facility] Start: 01-08-2023 End: 01-17-[address] Tonio Fajardo Work Phone: [facility] Work Phone: Start: 01-08-2023 End: 01-17-[address] Tonio Fajardo [facility] Start: 12-30-2022 End: 12-31-2022 Emergency department patient visit Dr. Tonio Fajardo Work Phone: [facility]-Emergency Department Start: 12-25-2022 Non-patient / Non-visit Dr. Min Fajardo Work Phone: [facility] Start: 12-25-[address] Tonio Fajardo Work Phone: [facility] Start: 12-18-2022 Non-patient / Non-visit Dr. Min Fajardo Work Phone: [facility] Start: 12-12-2022 End: 12-12-[address] Tonio Fajardo [facility] Start: 12-11-2022 Non-patient / Non-visit Dr. Min Fajardo Work Phone: [facility] Start: 12-11-2022 End: 12-17-[address] Tonio Fajardo Work Phone: [facility] Work Phone: Start: 12-11-2022 End: 12-17-[address] Tonio Fajardo Work Phone: [facility] Start: 12-06-2022 Non-patient / Non-visit Dr. Min Fajardo Work Phone: [facility] Start: 11-27-2022 Non-patient / Non-visit Dr. Min Fajardo Work Phone: [facility] Start: 11-20-2022 Non-patient / Non-visit Dr. Min Fajardo Work Phone: [facility] Start: 11-08-2022 Non-patient / Non-visit Dr. Min Fajardo Work Phone: [facility] Start: 11-08-2022 End: 11-17-[address] Tonio Fajardo [facility] Start: 10-30-2022 Non-patient / Non-visit Dr. Min Fajardo Work Phone: [facility] Start: 10-23-2022 Non-patient / Non-visit Dr. Min Fajardo Work Phone: [facility] Start: 10-18-2022 Non-patient / Non-visit Dr. Min Fajardo Work Phone: [facility] Start: 10-16-[address] Tonio Fajardo Work Phone: [facility] Start: 10-16-2022 End: 10-16-[address] Tonio Fajardo Work Phone: [facility] Start: 10-09-2022 Non-patient / Non-visit Dr. Min Fajardo Work Phone: [facility] Start: 10-09-2022 End: 10-09-[address] Tonio Fajardo Work Phone: [place] Start: 10-09-2022 End: 10-17-[address] Tonio Fajardo Work Phone: [facility] Work Phone: Start: 10-09-2022 End: 10-17-[address] Tonio Fajardo Work Phone: [facility] Start: 10-09-[address] Tonio Fajardo Work Phone: [facility] Start: 10-02-2022 Non-patient / Non-visit Dr. Min Fajardo Work Phone: [facility] Start: 10-02-2022 End: 10-02-[address] Tonio Fajardo Work Phone: [facility] Start: 09-25-2022 Non-patient / Non-visit Dr. Min Fajardo Work Phone: [facility] Start: 09-18-2022 Non-patient / Non-visit [facility] [facility] Start: 09-18-2022 End: 09-19-[address] Tonio Fajardo Work Phone: [facility] Work Phone: Start: 09-18-2022 End: 09-19-[address] Tonio Fajardo Work Phone: [facility] Start: 08-29-2022 Non-patient / Non-visit Dr. Min Fajardo Work Phone: [facility] Start: 08-15-2022 Non-patient / Non-visit Dr. Min Fajardo Work Phone: [facility] Start: 08-15-2022 End: 08-19-[address] Tonio Fajardo Work Phone: [facility] Work Phone: Start: 08-15-2022 End: 08-19-[address] Tonio Fajardo Work Phone: [facility] Start: 08-08-2022 End: 08-08-[address] Tonio Fajardo Work Phone: [facility] Start: 08-01-2022 Non-patient / Non-visit Dr. Min Fajardo Work Phone: [facility] Start: 07-28-2022 Telephone encounter Steven Parra APRN.[employer] Work Phone: [facility] Comment on above: Patient Update Start: 07-19-2022 End: 07-19-[address] Tonio Fajardo Work Phone: [facility] Start: 07-18-2022 Non-patient / Non-visit Dr. Min Fajardo Work Phone: [facility] Start: 07-18-2022 End: 07-19-[address] Tonio Fajardo Work Phone: [facility] Work Phone: Start: 07-18-2022 End: 07-19-[address] Tonio Fajardo Work Phone: [facility] Start: 07-17-2022 End: 07-17-[address] Tonio Fajardo Work Phone: [facility] Start: 07-09-[address] [facility] Start: 07-09-2022 Non-patient / Non-visit Dr. Min Fajardo Work Phone: [facility] Start: 07-05-2022 End: 07-05-[address] Tonio Fajardo Work Phone: [facility] Start: 06-28-2022 End: 06-28-[address] Tonio Fajardo Work Phone: [facility] Start: 06-26-2022 Non-patient / Non-visit Dr. Min Fajardo Work Phone: [facility] Start: 06-21-2022 End: 06-21-[address] Tonio Fajardo Work Phone: [facility] Start: 06-19-[address] Tonio Fajardo Work Phone: [facility] Start: 06-14-2022 End: 06-14-[address] Tonio Fajardo Work Phone: [facility] Start: 06-12-2022 Non-patient / Non-visit Dr. Min Fajardo Work Phone: [facility] Start: 06-12-2022 End: 06-19-[address] Tonio Fajardo Work Phone: [facility] Work Phone: Start: 06-12-2022 End: 06-19-[address] Tonio Fajardo [facility] Start: 06-06-2022 Non-patient / Non-visit Dr. Min Fajardo Work Phone: [facility] Start: 06-02-2022 Non-patient / Non-visit Dr. Min Fajardo Work Phone: [facility] Start: 06-02-2022 End: 06-02-[address] Tonio Fajardo Work Phone: [facility] Work Phone: Start: 06-02-2022 End: 06-02-[address] Tonio Fajardo Work Phone: [facility]Pulmonary Services/Neurology Start: 06-01-2022 Non-patient / Non-visit Dr. Min Fajardo Work Phone: [facility] Start: 06-01-[address] Tonio Fajardo [facility] Start: 05-30-[address] Tonio Fajardo Work Phone: [facility] Start: 05-30-2022 End: 05-30-[address] Tonio Fajardo Work Phone: [facility] Start: 05-29-2022 Non-patient / Non-visit Dr. Min Fajardo Work Phone: [facility] Start: 05-29-[address] Tonio Fajardo Work Phone: [facility] Start: 05-24-2022 End: 05-24-[address] Tonio Fajardo Work Phone: [facility] Start: 05-24-2022 Non-patient / Non-visit Dr. Min Fajardo Work Phone: [facility] Start: 05-24-[address] Tonio Fajardo Work Phone: [facility] Start: 05-22-2022 End: 05-22-[address] Tonio Fajardo Work Phone: [facility] Work Phone: Start: 05-22-2022 End: 05-22-[address] Tonio Fajardo Work Phone: [facility] Start: 05-17-2022 Non-patient / Non-visit Dr. Min Fajardo Work Phone: [facility] Start: 05-17-2022 End: 05-19-[address] Tonio Fajardo Work Phone: [facility] Work Phone: Start: 05-17-2022 End: 05-19-[address] Tonio Fajardo [facility] Start: 05-17-[address] Tonio Fajardo Work Phone: [facility] Start: 05-11-2022 End: 05-11-[address] Tonio Fajardo Work Phone: [facility] Start: 05-11-2022 End: 05-11-[address] Tonio Fajardo [facility] Start: 04-28-2022 Non-patient / Non-visit Dr. Min Fajardo Work Phone: [facility] Start: 04-28-2022 End: 04-28-[address] Tonio Fajardo Work Phone: [facility] Work Phone: Start: 04-28-2022 End: 04-28-[address] Tonio Fajardo Work Phone: [place] Start: 04-26-[address] Tonio Fajardo [facility] Start: 04-14-2022 End: 04-14-[address] Tonio Fajardo Work Phone: [facility] Work Phone: Start: 04-14-2022 End: 04-14-[address] Tonio Fajardo Work Phone: [facility] Start: 04-14-2022 End: 04-14-2022 Emergency department patient visit Dr. Tonio Fajardo Work Phone: [facility]Emergency Department Start: 04-12-2022 End: 04-12-[address] Tonio Fajardo Work Phone: [facility] Work Phone: Start: 04-12-2022 End: 04-12-[address] Tonio Fajardo Work Phone: [facility] Start: 04-12-2022 End: 04-19-[address] Tonio Fajardo Work Phone: [facility] Work Phone: Start: 04-12-2022 End: 04-19-[address] Tonio Fajardo [facility] Start: 04-12-[address] Tonio Fajardo [facility] Start: 04-06-2022 Telephone encounter Carlos Rivera MD Work Phone: [facility] Comment on above: Results (COVID+) Start: 04-05-2022 End: 04-05-2022 ambulatory TONIO FAJARDO Facility:[facility] Start: 04-05-2022 Telephone encounter Steven Parra APRN.CNP Work Phone: [facility] Comment on above: Results Start: 04-05-2022 End: 04-05-2022 Subsequent hospital visit by physician Xr [facility] Work Phone: Radiology Comment on above: Acute cough [R05.1] Start: 04-05-2022 End: 04-05-2022 Patient encounter procedure Steven Rodriguez APRN.CNP Work Phone: [facility] Comment on above: Burning with urinati on (Primary Dx); Acute cough; Suspected COVID-19 virus infection Start: 03-01-2022 End: 03-19-[address] Tonio aFjardo Work Phone: [facility] Start: 02-08-2022 End: 02-16-[address] Tonio Fajardo Work Phone: [facility] Start: 01-17-2022 End: 01-17-[address] Tonio Fajardo Work Phone: [facility] Start: 01-04-2022 End: 01-17-[address] Tonio Fajardo Work Phone: [facility] Start: 12-21-2021 Registered Recurring [facility] Start: 12-19-2021 End: 12-19-2021 [facility] Start: 11-29-2021 End: 12-17-2021 Nutrition therapy [facility] Start: 11-09-2021 End: 11-17-2021 Nutrition therapy [facility] Procedures Date Procedure Procedure Detail Performing Clinician Start: 04-21-[address] Tonio Fajardo DO Work Phone: Start: 04-20-2025 Mean corpuscular hem oglobin concentration determination Dr. Tonio Fajardo DO Work Phone: Start: 04-20-2025 Platelet mean volume determination Dr. Tonio Fajardo DO Work Phone: Start: 04-19-2025 Serum inorganic phos phate measurement Dr. Tonio Fajardo DO Work Phone: Start: 04-19-2025 Plain chest X-ray Dr. Silvana [...] Work Phone: Start: 07-03-2024 Gram stain microscopy Alex Fajardo DO Work Phone: Start: 07-03-2024 Microbial culture, routine Dr. Tonio Fajardo DO Work Phone: Start: 07-03-[address] Min Fajardo DO Work Phone: Start: 05-05-2024 Measurement of renal function Dr. Tonio Fajardo DO Work Phone: Comment on above: GFR Calc Start: 06-10-[address] Tonio davis DO Work Phone: Comment on above: Sent directly to [facility] per ordering physician. Start: 12-24-2023 [...] Fajardo Work Phone: Start: 06-08-2023 Fluoroscopic guidance Alex Fajardo Work Phone: Start: 06-08-2023 Radiography of [...] Radiologic exam chest 2 views Steven Rodriguez GREASE P[employer]ER.MOVIE PROJECTIONIST Work Phone: Start: 04-05-2022 Urnls dip stick/tabl et rgnt auto w/o microscopy Onelia Browningk [employer] P[employer]ER.MOVIE PROJECTIONIST Work Phone: Start: 11-02-2021 X-ray of both [...] Treatment Date Care Activity Detail Author Start: 04-23-2025 [facility] Start: 04-22-2025 Inhalation therapy procedure [facility] Start: 04-20-2025 Admission procedure [facility] Start: 04-20-2025 [facility] Start: 04-19-2025 Following clinical p athway protocol [facility] Start: 04-19-2025 Ambulation without limitation [facility] Start: 04-19-2025 Assessment of risk o f venous thromboembolism [facility] Start: 04-19-2025 Care regimes management [facility] Start: 04-19-2025 Insertion of cathete r into peripheral vein [facility] Start: 04-19-2025 Measuring intake and output [facility] Start: 04-19-2025 Notification of physician [facility] Start: 04-19-2025 Oxygen therapy [facility] Start: 04-19-2025 Providing care accor ding to standard [facility] Start: 04-19-2025 Referral to occupati onal therapist [facility] Start: 04-19-2025 Referral to service [facility] Start: 04-19-2025 End: 04-19-2025 [facility] Start: 04-19-2025 End: 04-19-2025 Serum inorganic phosphate measurement [facility] Start: 04-19-2025 Verification routine [facility] Start: 04-19-2025 Hospital admission, emergency, from emergency room, medical nature [facility] Start: 04-19-2025 Admission procedure [facility] Start: 04-19-2025 End: 04-19-2025 [facility] Start: 04-19-2025 Patient discharge [facility] Start: 04-19-2025 Patient referral to dietitian [facility] Start: 04-18-2025 [facility] Start: 04-18-2025 Development of care plan [facility] Start: 04-18-2025 Developing a treatme nt plan [facility] Start: 04-18-2025 Consultation for treatment [facility] Start: 04-18-2025 Wound care [facility] Start: 04-17-2025 Admission procedure [facility] Start: 04-17-2025 Introduction of urin dakota catheter [facility] Start: 04-17-2025 Measuring intake and output [facility] Start: 04-17-2025 Patient referral to dietitian [facility] Start: 04-17-2025 Referral to occupati onal therapist [facility] Start: 04-17-2025 Referral to service [facility] Start: 04-17-2025 Vital signs measurements [facility] Start: 04-17-2025 [facility] Start: 04-17-2025 Oxygen therapy [facility] Start: 04-13-2025 Development of care plan [facility] Start: 04-13-2025 End: 04-13-2025 [facility] Start: 04-13-2025 Patient discharge [facility] Start: 04-12-2025 [facility] Start: 04-11-2025 Referral to occupati onal therapist [facility] Start: 04-11-2025 Developing a treatme nt plan [facility] Start: 04-11-2025 [facility] Start: 04-11-2025 Wound care [facility] Start: 04-11-2025 Consultation for treatment [facility] Start: 04-11-2025 Contact precautions [facility] Start: 04-10-2025 Following clinical p athway protocol [facility] Start: 04-10-2025 Admission procedure [facility] Start: 04-10-2025 Introduction of urin dakota catheter [facility] Start: 04-10-2025 Measuring intake and output [facility] Start: 04-10-2025 End: 04-11-2025 Patient referral to dietitian [facility] Start: 04-10-2025 Referral to occupati onal therapist [facility] Start: 04-10-2025 Referral to service [facility] Start: 04-10-2025 Vital signs measurements [facility] Start: 04-10-2025 Oxygen therapy [facility] Start: 04-10-2025 Patient discharge [facility] Start: 04-10-2025 End: 04-10-2025 Microbial culture, body fluid [facility] Start: 04-10-2025 Anaerobic microbial culture [facility] Start: 04-10-2025 End: 04-10-2025 [facility] Start: 04-09-2025 Referral to service [facility] Start: 04-09-2025 Care planning and pr oblem solving actions [facility] Start: 04-09-2025 Assessment of risk o f venous thromboembolism [facility] Start: 04-09-2025 Catheterization of vein [facility] Start: 04-09-2025 Notification of physician [facility] Start: 04-09-2025 Taking patient vital signs [facility] Start: 04-09-2025 Wound care [facility] Start: 04-09-2025 End: 04-09-2025 [facility] Start: 04-09-2025 Care planning and pr oblem solving actions [facility] Start: 04-09-2025 [facility] Start: 04-08-2025 Catheterization of vein [facility] Start: 04-08-2025 Notification of physician [facility] Start: 04-08-2025 [facility] Start: 04-08-2025 Referral to immigration officer [facility] Start: 04-08-2025 End: 04-08-2025 Referral to service [facility] Start: 04-07-2025 Referral to occupati onal therapist [facility] Start: 04-07-2025 Referral to service [facility] Start: 04-07-2025 Provision of activit y privileges [facility] Start: 04-07-2025 Wound care [facility] Start: 04-06-2025 [facility] Start: 04-06-2025 Continuous pulse oximetry [facility] Start: 04-06-2025 Consultation for treatment [facility] Start: 04-06-2025 XR Chest Single view [facility] Start: 04-06-2025 [facility] Start: 04-06-2025 Inhalation therapy procedure [facility] Start: 04-05-2025 Following clinical p athway protocol [facility] Start: 04-05-2025 Assessment of risk o f venous thromboembolism [facility] Start: 04-05-2025 Care regimes management [facility] Start: 04-05-2025 Catheterization of vein [facility] Start: 04-05-2025 Insertion of cathete r into peripheral vein [facility] Start: 04-05-2025 Measuring intake and output [facility] Start: 04-05-2025 Notification of physician [facility] Start: 04-05-2025 Oxygen therapy [facility] Start: 04-05-2025 Providing care accor ding to standard [facility] Start: 04-05-2025 Provision of activit y privileges [facility] Start: 04-05-2025 Referral to occupati onal therapist [facility] Start: 04-05-2025 Referral to service [facility] Start: 04-05-2025 End: 04-05-2025 [facility] Start: 04-05-2025 Referral to rfid systems engineer [facility] Start: 04-05-2025 Verification routine [facility] Start: 04-05-2025 Urinalysis complete panel - Urine [facility] Start: 04-05-2025 Admission procedure [facility] Start: 04-05-2025 Hospital admission, emergency, from emergency room, medical nature [facility] Start: 04-05-2025 End: 04-05-2025 [facility] Start: 04-05-2025 Patient referral to dietitian [facility] Start: 03-27-2025 24 Hour ECG [facility] Start: 03-15-2025 [facility] Start: 03-15-2025 Control nasal hemorr min anterior simple [facility] Start: 03-09-2025 Referral to service [facility] Start: 03-09-2025 Patient discharge [facility] Start: 03-08-2025 Application of elast ic bandage [facility] Start: 03-07-2025 Introduction of urin dakota catheter [facility] Start: 03-06-2025 Inhalation therapy procedure [facility] Start: 03-05-2025 [facility] Start: 03-05-2025 Care planning and pr oblem solving actions [facility] Start: 03-05-2025 Chest 1 View (Portable) Chest 1 View (Portable) [facility] Start: 03-05-2025 XR Chest Single view [facility] Start: 03-05-2025 Care planning and pr oblem solving actions [facility] Start: 03-04-2025 Following clinical p athway protocol [facility] Start: 03-04-2025 Assessment of risk o f venous thromboembolism [facility] Start: 03-04-2025 Care regimes management [facility] Start: 03-04-2025 Catheterization of vein [facility] Start: 03-04-2025 Insertion of cathete r into peripheral vein [facility] Start: 03-04-2025 Measuring intake and output [facility] Start: 03-04-2025 Notification of physician [facility] Start: 03-04-2025 Oxygen therapy [facility] Start: 03-04-2025 Providing care accor ding to standard [facility] Start: 03-04-2025 Provision of activit y privileges [facility] Start: 03-04-2025 Referral to immigration officer [facility] Start: 03-04-2025 Referral to occupati onal therapist [facility] Start: 03-04-2025 Referral to service [facility] Start: 03-04-2025 End: 03-04-2025 [facility] Start: 03-04-2025 Hospital admission, emergency, from emergency room, medical nature [facility] Start: 03-04-2025 Verification routine [facility] Start: 03-04-2025 Admission procedure [facility] Start: 03-04-2025 Thyroid stimulating hormone measurement [facility] Start: 03-04-2025 [facility] Start: 03-04-2025 Patient referral to dietitian [facility] Start: 04-20-2024 Covid-19 Vaccine ( season) Covid-19 Vaccine () [facility] Start: 04-20-2024 Influenza vaccination Influenza Vacc ine (#1) [facility] Start: 08-20-2023 Advance Directive Discussion Advance Directive Discussion [facility] Start: 06-22-2023 [facility] Start: 06-08-2023 Patient discharge [facility] Start: 06-08-2023 Anes open proc bones lower leg/ankle/foot nos ANESTH LOWER LEG BONE SURG [facility] Start: 06-08-2023 Osteot w/wo lngth shrt/corrj 1st metar INCISION OF METATARSAL [facility] Start: 06-08-2023 Prep site f/s/n/h/f/ g/m/d gt 1st 100 sq cm/1pct WOUND PREP F/N/HF/G [facility] Start: 06-08-2023 Sub grft f/s/n/h/f/g /m/d <100sq cm 1st 25 sq cm SKIN SUB GRAFT FACE/NK/HF/G [facility] Start: 06-08-2023 Fluoroscopic guidance O.R. Fluoro fo r C-Arm [facility] Start: 06-08-2023 Radiography of foot Foot 2 Views [facility] Start: 12-30-2022 [facility] Start: 12-30-2022 End: 12-30-2022 Blood culture [facility] Start: 12-30-2022 End: 12-30-2022 [facility] Start: 10-16-2022 CBC W Auto Different ial panel - Blood [facility] Start: 10-16-2022 Lactate dehydrogenas e measurement [facility] Start: 10-16-2022 End: 10-16-2022 [facility] Start: 07-18-2022 [facility] Work Phone: Start: 05-18-2022 [facility] Work Phone: Start: 05-11-2022 Patient referral [facility] Work Phone: Start: 04-28-2022 CORE NDL BX LNG/MED PERQ CORE NDL BX LNG/MED PERQ [facility] Work Phone: Start: 04-28-2022 Following clinical p athway protocol [facility] Work Phone: Start: 04-28-2022 Catheterization of vein [facility] Work Phone: Start: 04-28-2022 Oxygen therapy [facility] Work Phone: Start: 04-28-2022 Patient discharge [facility] Work Phone: Start: 04-28-2022 Vital signs measurements [facility] Work Phone: Start: 04-20-2022 Influenza vaccination INFLUENZA (#1) [facility] Start: 04-05-2022 End: 04-19-2022 Influenza virus A and B RNA and SARS-CoV-2 (COVID-19) N gene panel - Respiratory specimen by BRYAN with probe detection [facility] Work Phone: Comment on above: Expected: 04/05/2022 , Expires: 04/19/2022 Start: 08-20-2021 ADVANCE DIRECTIVE DISCUSSION ADVANCE DIRECTIVE DISCUSSION [facility] Start: 08-20-2021 DEPRESSION ASSESSMENT DEPRESSION ASS ESSMENT [facility] Start: 05-04-2021 COVID-19 VACCINE (3 - Booster for Moderna series) COVID-19 VACCINE (3 - Booster for Moderna series) [facility] Start: 01-27-2021 COVID-19 VACCINE (3 - Booster for Moderna series) COVID-19 VACCINE (3 - Booster for Moderna series) [facility] Start: 01-15-2020 RSV Vaccine (1 - 1-d ose 75+ series) RSV Vaccine (1 - 1-dose 75+ series) [facility] Start: 12-01-2018 DIABETES SCREEN DIABETES SCREEN [facility] Start: 12-01-2018 Diabetes Screening Diabetes Screenin g [facility] Start: 2010 Pneumococcal Vaccine : 65+ (1 of 1 - PCV) Pneumococcal Vaccine: 65+ (1 of 1 - PCV) [facility] Start: 2010 PNEUMOCOCCAL: 65+ (1 - PCV) PNEUMOCOCCAL: 65+ (1 - PCV) [facility] Start: 1995 SHINGRIX VACCINE (1 of 2) HEIN GRIX VACCINE (1 of 2) [facility] Start: 01-15-1964 Urine microalbumin profile [facility] [facility] Start: 1963 Anxiety Screening Anxiety Screening [facility] Start: 1963 Depression Screening Depression Scre ening [facility] Start: 1963 HEPATITIS C SCREENING HEPATITIS C [facility] Start: 1957 Adult depression scr eening assessment [facility] 24 Hour ECG [facility] Alanine aminotransfe rase [Enzymatic activity/volume] in Serum or Plasma [facility] Albumin [Mass/volume ] in Serum or Plasma [facility] Alkaline phosphatase [Enzymatic activity/volume] in Serum or Plasma [facility] Anaerobic Culture Anaerobic Culture [facility] Work Phone: Anion gap measurement [facility] Aspartate aminotrans ferase [Enzymatic activity/volume] in Serum or Plasma [facility] Bacteria identified in Blood by Culture Blood Culture [facility] Bacteria identified in Body fluid by Culture [facility] Bacteria identified in Unspecified specimen by Anaerobe culture [facility] Work Phone: Bacteria identified in Unspecified specimen by Anaerobe culture [facility] Bacteria identified in Urine by Culture URINE CULTURE Microbiology Routine Burning with urination 04/05/2022 1:58 PM EDT [facility] Work Phone: Bacteria identified in Urine by Culture Urine Culture [facility] Bilirubin, total measurement [facility] BUN/Creatinine ratio [facility] Calcium [Mass/volume ] in Serum or Plasma [facility] Carbon dioxide, tota l [Moles/volume] in Serum or Plasma [facility] CBC W Auto Different ial panel - Blood [facility] Work Phone: CBC W Auto Different ial panel - Blood [facility] CBC W Auto Different ial panel - Blood [facility] Chloride [Moles/volu me] in Serum or Plasma [facility] Creatinine [Moles/vo lume] in Serum or Plasma [facility] CT Chest and Abdomen W contrast IV [facility] CT Chest W contrast IV [facility] Work Phone: CT Chest W contrast IV [facility] Cytology report of B horace fluid Cyto stain [facility] Glucose [Mass/volume ] in Serum or Plasma [facility] Hematocrit [Volume Fraction] of Blood [facility] Hemoglobin [Mass/vol ume] in Blood [facility] Hemoglobin A1c/Hemoglobin.total in Blood [facility] Lactate dehydrogenas e measurement [facility] Lactate dehydrogenas e measurement [facility] LDH [facility] Work Phone: Leukocytes [#/volume ] in Blood [facility] Magnesium measurement [facility] Magnesium measurement [facility] Mean corpuscular hemoglobin concentration determination [facility] Mean corpuscular hemoglobin determination [facility] Measurement of renal function [facility] Microbial culture, routine Wound Culture [facility] Work Phone: Microscopic observat ion [Identifier] in Unspecified specimen by Gram stain [facility] MR Brain WO and W co ntrast IV [facility] Work Phone: Natriuretic peptide. B prohormone N-Terminal [Mass/volume] in Serum or Plasma [facility] Natriuretic peptide. B prohormone N-Terminal [Mass/volume] in Serum or Plasma [facility] Natriuretic peptide. B prohormone N-Terminal [Mass/volume] in Serum or Plasma [facility] Neutrophil count [facility] Neutrophil percent differential count [facility] Patient Education [facility] Work Phone: Patient referral [facility] Work Phone: Platelets [#/volume] in Blood [facility] Positron emission tomography with computed tomography [facility] Work Phone: Potassium [Moles/vol ume] in Serum or Plasma [facility] Procedure [facility] PT Unspecified body region [facility] Radiation oncology A ND/OR radiotherapy [facility] Work Phone: Radiation oncology A ND/OR radiotherapy [facility] Red blood cell count [facility] Red cell distributio n width determination [facility] Sodium [Moles/volume ] in Serum or Plasma [facility] Total protein measurement [facility] Troponin T.cardiac [Mass/volume] in Serum or Plasma by High sensitivity method [facility] Troponin T.cardiac [Mass/volume] in Serum or Plasma by High sensitivity method [facility] Troponin T.cardiac [Mass/volume] in Serum or Plasma by High sensitivity method [facility] Troponin T.cardiac [Mass/volume] in Serum or Plasma by High sensitivity method [facility] Urea nitrogen [Mass/volume] in Serum or Plasma [facility] [place] Immunization Date Immunization Notes Care Provider [facility] 06-23-2024 influenza virus vaccine, unspecified formulation DR DAVID STERLING MD [facility] 07-09-2024 pneumococcal 20-shannon nt conjugate vaccine DR DAVID STERLING MD [facility] 06-01-2023 influenza virus vaccine, unspecified formulation DR DAVID STERLING MD [facility] 04-27-2022 influenza virus vaccine, unspecified formulation DR DAVID STERLING MD [facility] 12-02-2020 SARS-CoV-2 (COVID-19 ) mRNA-[address] DAVID STERLING MD [facility] Comment on above: Result Comment: 2024: [id number] 11-04-2020 SARS-CoV-2 (COVID-19 ) mRNA-[address] DAVID STERLING MD [facility] Comment on above: Result Comment: 2024: [id number] 08-03-2014 influenza virus vaccine, unspecified formulation [facility] Work Phone: [facility] 06-20-2013 Influenza virus vaccine [facility] 06-20-2013 Pneumococcal Vaccine [facility] Work Phone: 06-20-2013 pneumococcal vaccine , unspecified formulation Dr. Tonio Fajardo Work Phone: [facility] Payers Date Payer Category Payer Unknown [id number] 2025 Private Health Insurance [id number] 2022 Self-pay [id number] 2016 Self-pay [id number] 2009 Medicare [id number] 2009 Medicare [id number] 2009 [employer] ( and others) [id number] 2009 Unknown FOR LIFE [id number] 2009-Present [phone] [address] [place] [address] Indemnity [id number] .[id number] 1945 Unknown [id number] 2.16.840.1.773973.3.579.2 .627 Unknown [id number] 2.16.840.1.714653.3.579.2 .462 Unknown [id number] 2.16.840.1.940340.3.579.2 .462 Unknown [id number] 2.16.840.1.813693.3.579.2 .462 Unknown [id number] 2.16.840.1.177047.3.579.2 .462 Unknown [id number] 2.16.840.1.823386.3.579.2 .462 Unknown [id number] 2.16.840.1.155732.3.579.2 .462 Unknown [id number] 2.16.840.1.131637.3.579.2 .462 Unknown [id number] 2.16.840.1.120063.3.579.2 .462 Unknown [id number] 2.16.840.1.531693.3.579.2 .462 Unknown [id number] 2.16.840.1.555592.3.579.2 .462 Unknown [id number] 2.16.840.1.907701.3.579.2 .462 Unknown [id number] 2.16.840.1.650832.3.579.2 .462 Unknown [id number] 2.16.840.1.266983.3.579.2 .462 Unknown [id number] 2.16.840.1.897640.3.579.2 .462 Unknown [id number] 2.16840.1.775477.3.579.2 .462 Unknown [id number] 2.840.1.869864.3.579.2 .462 Unknown [id number] 2.840.1.016305.3.579.2 .462 Unknown [id number] 2.840.1.200722.3.579.2 .462 Unknown [id number] 2.840.1.401520.3.579.2 .462 Unknown [id number] 2.840.1.535262.3.579.2 .462 Unknown [id number] 2.840.1.477730.3.579.2 .462 Unknown [id number] 2.840.1.744945.3.579.2 .462 Unknown [id number] 2.840.1.613422.3.579.2 .462 Unknown [id number] 2.840.1.819244.3.579.2 .462 Unknown [id number] 2.840.1.063630.3.579.2 .462 Unknown [id number] 2.840.1.026524.3.579.2 .462 Unknown [id number] 2.840.1.614717.3.579.2 .462 Unknown [id number] 2.840.1.348677.3.579.2 .462 Unknown [id number] .840.1.889227.3.579.2 .462 Unknown [id number] 2.840.1.616989.3.579.2 .462 Unknown [id number] 2.840.1.395392.3.579.2 .462 Unknown [id number] 2.840.1.711195.3.579.2 .462 Unknown [id number] 2.16.840.1.889860.3.579.2 .462 Unknown [id number] 2.16.840.1.771968.3.579.2 .462 Unknown [id number] 2.16.840.1.085039.3.579.2 .462 Unknown [id number] 2.16.840.1.496950.3.579.2 .462 Unknown [id number] 2.16.840.1.936684.3.579.2 .462 Unknown [id number] 2.16.840.1.310822.3.579.2 .462 Unknown [id number] 2.16.840.1.400318.3.579.2 .462 Unknown [id number] 2.16.840.1.085268.3.579.2 .462 Unknown [id number] 2.16.840.1.666917.3.579.2 .462 Unknown [id number] 2.16.840.1.948282.3.579.2 .462 Unknown [id number] 2.16.840.1.490544.3.579.2 .462 Unknown [id number] 2.16.840.1.836133.3.579.2 .462 Unknown [id number] 2.16.840.1.695809.3.579.2 .462 Unknown [id number] 2.16.840.1.756980.3.579.2 .462 Unknown [id number] 2.16.840.1.239456.3.579.2 .462 Unknown [id number] 2.16.840.1.504876.3.579.2 .462 Unknown [id number] 2.16.840.1.139029.3.579.2 .462 Unknown [id number] 2.16.840.1.074612.3.579.2 .462 Social History Date Type Detail Facility Start: 01-06-2021 End: 10-31-2023 Tobacco smoking status PAIS Unknown if ever smoked [facility] Start: 08-27-2013 None [facility] Start: 03-18-2014 Spouse/ Signif icant Other [facility] Start: 06-20-2014 Non-smoker [facility] Start: 1945 Sex Assigned At Male [facility] Start: 04-05-2022 End: 04-21-2025 Tobacco smoking status NHIS Ex-smoker [facility] Work Phone: History of tobacco use Current smoker [facility] Work Phone: History of tobacco use Cigarette Smoker [facility] Work Phone: Start: 04-05-2022 Tobacco use and exposure Former smokeless tobacco user [facility] Work Phone: Start: 1945 Sex Assigned At Not on file C [facility] Start: 03-26-2022 End: 04-05-2022 Exposure to SARS-CoV-2 (event) Not sure [facility] Work Phone: Start: 04-05-2022 History of Social function [facility] Start: 04-05-2022 Tobacco use panel [facility] Start: 10-30-2024 End: 04-13-2025 Sex Male (finding) [facility] Tobacco smoking status [facility] Medical Equipment Procedure Code Equipment [...] FDA Start: 06-08-2023 Bunionectomy FDA Start: 06-08-2023 ([id number]) [id number] [id number] FDA Start: 04-09-2025 ([id number]) [id number] [id number] 1)[id number] FDA Start: 04-09-2025 ([id number]) [id number] [id number] FDA Start: 04-09-2025 Goals Date Patient Goal Desired Activity /State Functional Status Date Assessment Result Facility 04-23-2025 Functional status Ambulates;Chair [facility] Work Phone: 04-19-2025 Functional status Bedrest [facility] Work Phone: 04-12-2025 Functional status Chair [facility] Work Phone: 04-10-2025 Functional status Stand and pivot [facility] Work Phone: 03-09-2025 Functional status Chair [facility] Work Phone: Mental Status Date Assessment Result Facility 04-23-2025 Cognitive function Voice/Name [facility] Work Phone: 04-19-2025 Cognitive function Awake;Alert;A ppropriate;Follow s Commands [facility] Work Phone: 04-18-2025 Cognitive function Voice/Name [facility] Work Phone: 04-17-2025 Cognitive function Appropriate;Cooperativ e [facility] Work Phone: 04-12-2025 Cognitive function Voice/Name [facility] Work Phone: 04-10-2025 Cognitive function Voice/Name [facility] Work Phone: 04-05-2025 Cognitive function Awake;Alert;A ppropriate;Follow s Commands [facility] Work Phone: 03-09-2025 Cognitive function Voice/Name [facility] Work Phone: 06-08-2023 Cognitive function Voice/Name [facility] Work Phone: 12-30-2022 Cognitive function Level Of Cons ciousness Awake;Alert;Appropriate;Follow s Commands [facility] Work Phone: 04-28-2022 Cognitive function Voice/Name [facility] Work Phone: 04-14-2022 Cognitive function Level Of Cons ciousness Awake;Appropriate;Follows Commands;Drowsy [facility] Work Phone: Clinical Notes 04-05-2022 to 04-23-2025 Note Date & Type Note Facility 04-23-2025 Progress note Note Date/Time April 23, 2025 3:14pm [facility] Medical Records Department [address] [place] [address] Progress Note - Hospitalist 04/23/25 1512 MR#: [id number] Acct: [id number] Name: PEDRO HILLMAN Rep #:[id number] : 1945 80 From: Tonio Mccallum DO PCP: Dr. Tonio Fajardo DO Status:ADM IN Location: [facility] [id number] Reason for Visit Chief Complaint: Syncopal episode Subjective Subjective The date of this entry is 04/22/2025: Patient was seen and examined today, unfortunately he remains orthostatically hypotensive, he did fairly well with therapy however. I made the decision to increase the patient's midodrine to 10 mg 3 times daily. I also elected to keep him on fluids for now. Objective Data Objective Data Vital Signs: Vital Signs Temp Pulse Resp BP Pulse Ox O2 Del Method O2 Flow Rate 97.9 F 97 18 146/64 H 96 Nasal Cannula 2 04/23/25 14:00 04/23/25 14:00 04/23/25 14:00 04/23/25 14:00 04/23/25 14:00 04/23/25 14:00 04/23/25 14:00 FiO2 2 04/19/25 21:50 Oxygen Flow Rate (L/min) 2 Oxygen Delivery Method Nasal Cannula Weight: 65.1 kg Body Mass Index (BMI) 23.1 Intake & Output: Intake and Output for Last 24 Hours 04/21/25 04/22/25 04/23/25 23:59 23:59 23:59 Intake Total 3143.75 / 3143.75 1393.75 / 1393.75 2250 / 2250 Output Total 1650 / 1650 600 / 600 200 / 200 Balance 1493.75 / 1493.75 793.75 / 793.75 2049 / 2049 Medical Nutrition Assessment Dietitian: Malnutrition Criteria Met Start: 04/20/25 14:15 Freq: Status: Active Protocol: Document 04/20/25 14:15 RMA (Rec: 04/20/25 14:16 RMA [id number]) Nutrition Malnutrition Evidence of Yes Malnutrition Exists Malnutrition ( Chronic moderate): Evidenced By Suboptimal Energy Intake (Moderate),Weight Loss ( Moderate) Clinical Problem Chronic Disease or Condition Related Malnutrition Etiology Moderate protein-calorie malnutrition in the context of chronic disease related to inadequate energy/oral intake Signs/Symptoms as evidenced by ~5% unintentional weight loss x past 1- 2 months, PO meeting less than 75% estimated nutrition needs x 2 months; BMI 23.2 Status Active Problem Recommendation Dietitian Will adjust diet to 1800 calorie/consistent Recommendations/ carbohydrate. Changes Will add 120mL glucerna shake 3 times per day w/ medpass. Trend weight and need for additional ONS. Lab / Micro Data 04/20/25 05:57 04/21/25 03:34 Labs: Laboratory Results - last 24 hr 04/22/25 16:52: POC Glucose 151 H 04/22/25 22:04: POC Glucose 120 H 04/23/25 06:14: POC Glucose 130 H 04/23/25 12:06: POC Glucose 231 H Physical Exam Narrative alert, oriented x3 and no apparent distress General Appearance: cooperative, well kempt and well developed Orientation / Consciousness: awake, oriented to person, oriented to place and oriented to time HEENT normocephalic, head/scalp atraumatic and moist oral mucous membranes Eyes PERRL, EOMs intact bilaterally and conjunctivae normal Neck supple, no JVD, thyroid normal and no carotid bruits General: trachea midline Resp normal respiratory effort, no retractions, no use of accessory muscles and clearto auscultation bilaterally Auscultation: Negative for rales, rhonchi or wheezes Cardio regular rate, regular rhythm, S1 normal heart sound, S2 normal heart sound, no murmurs, no rub and no gallops GI normal to inspection, nondistended, normoactive bowel sounds, soft to palpation,non-tender and non-distended Extremity no clubbing, cyanosis or edema Skin no rashes or lesions noted General Skin Exam: no breakdown Neuro oriented x3, CN's II-XII intact bilaterally, moves all extremities, no focal motor deficits and no sensory deficits noted Sensorium / Orientation: awake and alert Speech: speech normal Psych affect normal Assessment & Plan Assessment/Plan (1) Orthostatic hypotension: PLAN: Plan 1. Syncopal episode with positive orthostatics secondary to hypovolemia-patientwill be given IV fluids and reevaluated tomorrow, PT and OT will continue to work with patient, patient is now on 10 mg midodrine 3 times daily #2 chronic hypoxic respiratory failure-patient remains on nasal cannula oxygen at rest and with exertion #3 chronic obstructive pulmonary disease-continue aerosol treatments as needed, DuoNeb aerosols scheduled #4 type 2 diabetes-blood sugars will be monitored, sliding scale insulin will beadministered as needed, patient is on basal insulin #5 paroxysmal atrial fibs-patient is on Eliquis and rate control medications #6 coronary artery disease-patient is on Plavix and metoprolol #7 chronic kidney disease stage IIIb secondary to type 2 diabetes-complicates care, management, recovery, and prognosis #8 chronic moderate protein and caloric malnutrition-in the context of chronic disease related to inadequate energy/oral intake as evidenced by 5% unintentional weight loss times the past 1 to 2 months, p.o. eating less than 75% of estimated nutritional needs x 2 months-patient's diet was adjusted to an 1800-calorie carbohydrate diet and 128 mL of Glucerna shake 3 times a day will be given to the patient with med [employer]. Nutritional services is participating inh care Total clinical time spent by myself addressing the patient's medical issues, reviewing all of his data, and collaborating with the patient's care team: 35 minutes Charges/Coding Visit Charges Inpatient E&M: 18925 Subs Hosp L2 04/23/25 1514 <Electronically signed by Tonio Mccallum DO> Cosigner Signature (if applicable): CC: ~ Signed [facility] Work Phone: 1(626) 355-535309-04-2025 Hospital Discharge instructionsAdditional Instructions Monitor blood pressure closely, it may be necessary to cut back or discontinue midodrine and/or Florinef Date of Discharge: 04/23/25[facility] Work Phone: 1(444) 745-806509-03-2025 Progress note Author Tonio Mccallum [facility] Note Date/Time April 22, 2025 6:27pm [facility] Medical Records Department [address] [place] [address] Progress Note - Hospitalist 04/21/25 191 MR#: [id number] Acct: [id number] Name: PEDRO HILLMAN Rep #:[id number] : 1945 80 From: Tonio Mccallum DO PCP: Dr. Tonio Fajardo, Status:ADM IN Location: [facility] [id number]- [id number] Reason for Visit Chief Complaint: Syncopal episode Subjective Subjective Patient was seen and examined today, patient felt lightheaded when he got up to move around with physical therapy, I elected to place him on midodrine today andreevaluate him tomorrow. I will continue his IV fluid and hopefully he will be able to go back to [facility] tomorrow. Patient stated this morning that he felt better today but shortly thereafter when he stood up he got lightheaded. Objective Data Objective Data Vital Signs: Vital Signs Temp Pulse Resp BP Pulse Ox O2 Del Method O2 Flow Rate 97.6 F L 97 16 127/62 H 100 Nasal Cannula 2 04/21/25 13:20 04/21/25 13:20 04/21/25 13:20 04/21/25 13:20 04/21/25 13:20 04/21/25 15:00 04/21/25 15:00 FiO2 2 04/19/25 21:50 Oxygen Flow Rate (L/min) 2 Oxygen Delivery Method Nasal Cannula Weight: 65.1 kg Body Mass Index (BMI) 23.1 Intake & Output: Intake and Output for Last 24 Hours 04/19/25 04/20/25 04/21/25 23:59 23:59 23:59 Intake Total 1525.83 / 1645.83 620 / 870 1999 / 1999 Output Total 700 / 1000 1400 / 1700 1450 / 1450 Balance 825.83 / 645.83 -780 / -830 550 / 550 Medical Nutrition Assessment Dietitian: Malnutrition Criteria Met Start: 04/20/25 14:15 Freq: Status: Active Protocol: Document 04/20/25 14:15 RMA (Rec: 04/20/25 14:16 RMA [id number]) Nutrition Malnutrition Evidence of Yes Malnutrition Exists Malnutrition ( Chronic moderate): Evidenced By Suboptimal Energy Intake (Moderate),Weight Loss ( Moderate) Clinical Problem Chronic Disease or Condition Related Malnutrition Etiology Moderate protein-calorie malnutrition in the context of chronic disease related to inadequate energy/oral intake Signs/Symptoms as evidenced by ~5% unintentional weight loss x past 1- 2 months, PO meeting less than 75% estimated nutrition needs x 2 months; BMI 23.2 Status Active Problem Recommendation Dietitian Will adjust diet to 1800 calorie/consistent Recommendations/ carbohydrate. Changes Will add 120mL glucerna shake 3 times per day w/ medpass. Trend weight and need for additional ONS. Lab / Micro Data 04/20/25 05:57 04/21/25 03:34 Labs: Laboratory Results - last 24 hr 04/20/25 20:32: POC Glucose 213 H 04/21/25 03:34: Sodium 136, Potassium 3.5, Chloride 96 L, Carbon Dioxide 29.6, Anion Gap 10, BUN 32 H, Creatinine 1.56 H, Estim Creat Clear Calc 34.08 L, Est GFR (MDRD) Non-Af 45 L, BUN/Creatinine Ratio 20.6 H, Glucose 137 H, Calcium 8.6 04/21/25 06:37: POC Glucose 134 H 04/21/25 11:33: POC Glucose 231 H 04/21/25 16:28: POC Glucose 220 H Physical Exam Narrative alert, oriented x3 and no apparent distress General Appearance: cooperative, well kempt and well developed Orientation / Consciousness: awake, oriented to person, oriented to place and oriented to time HEENT normocephalic, head/scalp atraumatic and moist oral mucous membranes Eyes PERRL, EOMs intact bilaterally and conjunctivae normal Neck supple, no JVD, thyroid normal and no carotid bruits General: trachea midline Resp normal respiratory effort, no retractions, no use of accessory muscles and clearto auscultation bilaterally Auscultation: Negative for rales, rhonchi or wheezes Cardio regular rate, regular rhythm, S1 normal heart sound, S2 normal heart sound, no murmurs, no rub and no gallops GI normal to inspection, nondistended, normoactive bowel sounds, soft to palpation,non-tender and non-distended Extremity no clubbing, cyanosis or edema Skin no rashes or lesions noted General Skin Exam: no breakdown Neuro oriented x3, CN's II-XII intact bilaterally, moves all extremities, no focal motor deficits and no sensory deficits noted Sensorium / Orientation: awake and alert Speech: speech normal Psych affect normal Assessment & Plan Assessment/Plan (1) Orthostatic hypotension: PLAN: Plan 1. Syncopal episode with positive orthostatics secondary to hypovolemia- patientwill be given IV fluids and reevaluated tomorrow, PT and OT will continue to work with patient, patient is now on midodrine #2 chronic hypoxic respiratory failure-patient remains on nasal cannula oxygen at rest and with exertion #3 chronic obstructive pulmonary disease-continue aerosol treatments as needed, I will add DuoNeb aerosols scheduled #4 type 2 diabetes-blood sugars will be monitored, sliding scale insulin will beadministered as needed, patient is on basal insulin #5 paroxysmal atrial fibs-patient is on Eliquis and rate control medications #6 coronary artery disease-patient is on Plavix and metoprolol #7 chronic kidney disease stage IIIb secondary to type 2 diabetes-complicates care, management, recovery, and prognosis #8 chronic moderate protein and caloric malnutrition-in the context of chronic disease related to inadequate energy/oral intake as evidenced by 5% unintentional weight loss times the past 1 to 2 months, p.o. eating less than 75% of estimated nutritional needs x 2 months-patient's diet was adjusted to an 1800-calorie carbohydrate diet and 128 mL of Glucerna shake 3 times a day will be given to the patient with med [employer]. Nutritional services is participating inhis care Total clinical time spent by myself addressing the patient's medical issues, reviewing all of his data, and collaborating with the patient's care team: 35 minutes Charges/Coding Visit Charges Inpatient E&M: 62128 Subs Hosp L2 04/22/25 5564 <Electronically signed by Tonio Mccallum DO> Cosigner Signature (if applicable): CC: ~ Signed [facility] Work Phone: 1(736) 269-356909-02-2025 Note. MICRO - Microbiology PROCEDURE: Fungal Culture with Stain if Ind [*1] SOURCE: Thoracentesis Fluid BODY SITE: COLLECTED DATE/TIME: 04/15/2025 08:52 EDT RECEIVED DATE/TIME: 04/15/2025 14:18 EDT START DATE/TIME: 04/15/2025 14:18 EDT FREE TEXT SOURCE: PRELIMINARY REPORTS Preliminary Report [] Verified Date/Time/Personnel: 04/21/2025 08:19 EDT No fungus isolated to date. Final report to follow. STAINS FUNSM [] Verified Date/Time/Personnel: 04/16/2025 12:32 EDT No fungal elements observed by calcofluor white stain. Performing Locations *1: This test was performed at: [facility], [address] [place] [address], [id number] , [facility] [id number] Progress note Author Tonio Mccallum [facility] Note Date/Time April 20, 2025 6:18pm [facility] Medical Records Department [address] [place] [id number] Progress Note - Hospitalist 04/20/25 1811 MR#: [id number] Acct: [id number] Name: PEDRO HILLMAN Rep #:[id number] : 1945 80 From: Tonio Mccallum DO PCP: Dr. Tonio Fajardo DO Status:ADM IN Location: [place] [address] Reason for Visit Chief Complaint: Syncopal episode Subjective Subjective Patient was seen and examined today, his orthostatics were positive today and the patient became presyncopal when he stood up. I gave him an additional 500 cc of normal saline and at this time I have decided to place him on IV of normalsaline at 75 cc/h until tomorrow and reevaluate the patient. Objective Data Objective Data Vital Signs: Vital Signs Temp Pulse Resp BP Pulse Ox O2 Del Method O2 Flow Rate 97.7 F L 101 H 18 132/55 H 100 Nasal Cannula 2 04/20/25 14:06 04/20/25 14:06 04/20/25 14:06 04/20/25 14:06 04/20/25 14:06 04/20/25 14:06 04/20/25 14:06 FiO2 2 04/19/25 21:50 Oxygen Flow Rate (L/min) 2 Oxygen Delivery Method Nasal Cannula Weight: 65.1 kg Body Mass Index (BMI) 23.1 Intake & Output: Intake and Output for Last 24 Hours 04/18/25 04/19/25 04/20/25 23:59 23:59 23:59 Intake Total 1525.83 / 1645.83 620 / 620 Output Total 700 / 1000 1050 / 1050 Balance 825.83 / 645.83 -430 / -430 Medical Nutrition Assessment Dietitian: Malnutrition Criteria Met Start: 04/20/25 14:15 Freq: Status: Active Protocol: Document 04/20/25 14:15 RMA (Rec: 04/20/25 14:16 RMA [id number]) Nutrition Malnutrition Evidence of Yes Malnutrition Exists Malnutrition ( Chronic moderate): Evidenced By Suboptimal Energy Intake (Moderate),Weight Loss ( Moderate) Clinical Problem Chronic Disease or Condition Related Malnutrition Etiology Moderate protein-calorie malnutrition in the context of chronic disease related to inadequate energy/oral intake Signs/Symptoms as evidenced by ~5% unintentional weight loss x past 1- 2 months, PO meeting less than 75% estimated nutrition needs x 2 months; BMI 23.2 Status Active Problem Recommendation Dietitian Will adjust diet to 1800 calorie/consistent Recommendations/ carbohydrate. Changes Will add 120mL glucerna shake 3 times per day w/ medpass. Trend weight and need for additional ONS. Lab / Micro Data 04/20/25 05:57 04/20/25 05:57 Labs: Laboratory Results - last 24 hr 04/19/25 21:53: POC Glucose 178 H 04/20/25 05:57: WBC 9.9, RBC 3.39 L, Hgb 9.1 L, Hct 29.4 L, MCV 86.7, MCH 26.8 L, MCHC 31.0 L, RDW Std Deviation 53.4 H, RDW Coeff of Reggie 17.1 H, Plt Count 192,MPV 11.0, Sodium 135, Potassium 3.4, Chloride 91 L, Carbon Dioxide 32.1 H, AnionGap 12, BUN 37 H, Creatinine 1.65 H, Estim Creat Clear Calc 32.22 L, Est GFR (MDRD) Non- Af 42 L, BUN/Creatinine Ratio 22.4 H, Glucose 154 H, Calcium 9.1 04/20/25 06:22: POC Glucose 156 H 04/20/25 11:19: POC Glucose 178 H 04/20/25 16:27: POC Glucose 173 H Physical Exam Const alert, oriented x3 and no apparent distress General Appearance: cooperative, well kempt and well developed Orientation / Consciousness: awake, oriented to person, oriented to place and oriented to time HEENT normocephalic, head/scalp atraumatic and moist oral mucous membranes Eyes PERRL, EOMs intact bilaterally and conjunctivae normal Neck supple, no JVD, thyroid normal and no carotid bruits General: trachea midline Resp normal respiratory effort, no retractions, no use of accessory muscles and clearto auscultation bilaterally Auscultation: Negative for rales, rhonchi or wheezes Cardio regular rate, regular rhythm, S1 normal heart sound, S2 normal heart sound, no murmurs, no rub and no gallops GI normal to inspection, nondistended, normoactive bowel sounds, soft to palpation,non-tender and non-distended Extremity no clubbing, cyanosis or edema Skin no rashes or lesions noted General Skin Exam: no breakdown Neuro oriented x3, CN's II-XII intact bilaterally, moves all extremities, no focal motor deficits and no sensory deficits noted Sensorium / Orientation: awake and alert Speech: speech normal Psych affect normal Assessment & Plan Assessment/Plan (1) Orthostatic hypotension: PLAN: Plan 1. Syncopal episode with positive orthostatics secondary to hypovolemia- patientwill be given IV fluids and reevaluated tomorrow, PT and OT will continue to work with patient #2 chronic hypoxic respiratory failure-patient remains on nasal cannula oxygen at rest and with exertion #3 chronic obstructive pulmonary disease-continue aerosol treatments as needed, I will add DuoNeb aerosols scheduled #4 type 2 diabetes-blood sugars will be monitored, sliding scale insulin will beadministered as needed, patient is on basal insulin #5 paroxysmal atrial fibs-patient is on Eliquis and rate control medications #6 coronary artery disease-patient is on Plavix and metoprolol #7 chronic kidney disease stage IIIb secondary to type 2 diabetes-complicates care, management, recovery, and prognosis Total clinical time spent by myself addressing the patient's medical issues, reviewing all of his data, and collaborating with the patient's care team: 35 minutes Charges/Coding Visit Charges Inpatient E&M: 52457 Subs Hosp L2 04/20/258 <Electronically signed by Tonio Mccallum DO> Cosigner Signature (if applicable): CC: ~ Signed [facility] Work Phone: 1([phone]) 486-391309-01-2025 Note. MICRO - Microbiology PROCEDURE: Culture Body [...] Locations *1: This test was performed at: [facility], [address] [place] [address], [id number]- , [facility]08-31-2025 [facility]08-31-2025 History and physical note Author Kwaku Narayanan [facility] Note Date/Time April 19, 2025 2: 22pm [facility] Medical Records Department [address] [place] [address] H&P Exam - Hospitalist 04/19/25 1031 MR#: [id number] Acct: [id number] Name: PEDRO HILLMAN Rep #:[id number] : 1945 80 From: Kwaku santiago DO PCP: Dr. Tonio Fajardo, DO Status:ADM FELICIANO Location: U [id number] HPI - General General Date of Admission: 04/19/25 Date of Service: 04/19/25 Chief Complaint: Syncopal episode HPI Narrative PEDRO HILLMAN, is a 80 M who presented to [facility] ED on 04/19/2025 from the TCU for syncopal episode. Patient has complex recent medicalhistory. Medical history significant for chronic persistent A-fib on Eliquis, HFpEF, CAD with CABG x 3 in 2012, PAD with aortofemoral bypass in 2009, RUL non-small cell lung cancer s/p radiation currently on observation, COPD, chronic respiratory failure on 3 L at baseline, CKD stage IIIb, type 2 diabetes mellitus, chronic anemia of renal disease and BPH with obstructive symptoms. Hewas hospitalized here in mid to late February with A-fib with RVR and CHF exacerbation, and then he was again hospitalized here from 04/05-04/10 for CHF exacerbation. Cardiology followed and noted that patient had tachybradycardia syndrome with difficulty controlling his heart rate, as well as high-grade pauses noted on telemetry. Given this, decision was made for permanent pacemaker placement and this was done on 04/09. Patient was then discharged to the TCU on 04/10. However, he developed worsened shortness of breath with hypoxia on 04/12 requiring movement back down to the ED, and he was found on CT chest to have a right loculated hydropneumothorax as well as right-sided pneumonia and a COPD exacerbation. He was then transferred to [place] for further management. There he had an ultrasound-guided thoracentesis with 1000 mL of fluid removed. He was treated for COPD exacerbation and pneumonia with good improvement in symptoms. Was also given doses of IV Lasix and 1 dose of metolazone therefore diuresis for concern for acute on chronic HFpEF. CT surgery there noted no need for surgery for the effusion; did note that if the effusion was recurrent, may need IR guided pleural catheter placement. Patient was stable for discharge back to her TCU on 04/17. This morning while staff in the TCU was trying to set him up to dress him, his eyes rolled back and he went unresponsive for approximately 10 to 15 seconds. Patient did note presyncopal symptoms the day prior, and nursing staff noted that after he came to, he still reported significant presyncopal symptoms with much of any movement, so they brought him down to the ED for further evaluation. In the ED he was found to be very orthostatic positive, with BP dropped from the 130 systolic to the 80s systolic when going from lying flat to sitting. He was not able to stand due to significant orthostatic symptoms. Heart rate remained at about 100 with lying flat and sitting but notably he is on a beta-josselyn. Creatinine 1.7, slightly above baseline around 1.4. Given significantdiuresis recently, was suspected that patient was dry, so he was given 500 cc normal saline bolus. Hospitalist was then contacted for admission. I saw the patient at bedside in the ED, son was present. Patient was fatigued appearing but otherwise laying back comfortably in bed and in no acute distress. Denied any lightheadedness or dizziness currently. Patient and son note that patient had significant urine output yesterday, and patient reports feeling dry and dehydrated today. No other acute concerns currently. Will be admitted for further management. [facility] Medical History (Updated 04/19/25 @ 14:[address] Kwaku Narayanan DO) Presence of cardiac pacemaker Peripheral arterial disease Other persistent atrial fibrillation New onset atrial flutter COVID Wears hearing aid in both ears Former smoker Coronary artery disease Peripheral vascular occlusive disease BPH (benign prostatic hyperplasia) Chronic kidney disease, stage 3 Atherosclerosis of coronary artery of ho-chunk heart without angina pectoris Hyperlipidemia Lower extremity [...] hr (Mucinex) #20 tabs OXYGEN - Supplemental ([facility] 04/09/25 Unknown History INFORMATIONAL USE ONLY) aspirin [...] quit smokin years ROS Constitutional Constitutional: Reports fatigue; Denies chills, fever(s) or weakness Eyes Eyes: Denies change in vision Cardiovascular Cardiovascular: Reports lightheadedness and syncope; Denies chest pain, edema orpalpitations Respiratory/Chest Respiratory/Chest: Denies shortness of breath at rest Gastrointestinal Gastrointestinal: Denies abdominal pain, nausea or vomiting Neurologic Neurologic: Reports dizziness; Denies focal weakness, headache(s), numbness or tingling Vital Signs Vital Signs Vital Signs: 04/19/25 08:22 04/19/25 08:42 04/19/25 [...] Nasal Cannula Oxygen Flow Rate (L/min) 3 Weight Weight: 72.4 kg Body Mass Index (BMI) 25.7 Physical Exam Const alert, oriented x3, no apparent distress and average body habitus Constitutional Narrative: Elderly male, fatigued and somewhat chronically ill-appearing, otherwise laying back comfortably in bed, answering questions appropriately, in no acute distress. General Appearance: cooperative and comfortable HEENT normocephalic, head/scalp atraumatic, hearing grossly normal bilaterally, nasal mucous membranes and turbinates normal and moist oral mucous membranes Eyes PERRL, EOMs intact bilaterally and conjunctivae normal Neck full ROM Chest inspection of chest normal Resp normal respiratory effort and no use of accessory muscles Resp Narrative: Breathing comfortably on home 3 L nasal cannula at rest. Mildly diminished breath sounds in bilateral lung bases but no wheezing or crackles noted. Cardio no murmurs and peripheral pulses 2+ throughout Cardio Narrative: Tachycardic, regular rhythm. GI normal to inspection, nondistended, normoactive bowel sounds, soft to palpation,non-tender and non-distended Back/Spine normal ROM Extremity normal to inspection, full ROM and no pedal edema Skin no rashes or lesions noted Psych mental status grossly normal Results Lab / Micro Data 04/19/25 08:35 04/19/25 08:35 Labs: Laboratory Results - last 24 hr 04/19/25 08:35: WBC 10.7, RBC 3.51 L, Hgb 9.6 L, Hct 30.6 L, MCV 87.2, MCH 27.4,MCHC 31.4 L, RDW Std Deviation 54.8 H, RDW Coeff of Reggie 17.2 H, Plt Count 204, MPV 11.1, Immature Gran % (Auto) 1.600 H, Neut % (Auto) 75.0 H, Lymph % (Auto) 9.1 L, Carlton % (Auto) 11.3 H, Eos % (Auto) 2.7, Baso % (Auto) 0.3, Absolute Neuts(auto) 8.0 H, Absolute Lymphs (auto) 0.97, Nucleated RBC % 0, Sodium 136, Potassium 3.5, Chloride 87 L, Carbon Dioxide 37.3 H, Anion Gap 11, BUN 40 H, Creatinine 1.74 H, Estim Creat Clear Calc 30.56 L, Est GFR (MDRD) Non-Af 39 L, BUN/Creatinine Ratio 22.7 H, Glucose 132 H, Calcium 9.4, Total Bilirubin 0.55, AST 30, ALT 27, Alkaline Phosphatase 79, Troponin T High Sens 99 H*, Total Protein 6.8, Albumin 3.4, Globulin 3.4, Albumin/Globulin Ratio 1.0 Imaging Radiology Impression Chest X-Ray 04/19/25 08:54 IMPRESSION: No significant changes on findings suggestive of CHF compared to x-ray 04/12/2025. Reading Location: [facility] Assessment & Plan Assessment/Plan (1) Syncope: (2) Orthostatic hypotension: PLAN: Plan Patient is an 80-year-old male who presented to [facility] ED on04/19/2025 from the TCU for syncope. 1. Syncopal episode with positive orthostatics ? Admit under observation status to PCU. Suspect secondary to hypovolemia from recent overdiuresis. Orthostatics significantly positive in the ED with SBP 130s with lying flat and drop to the 80s with sitting; was not able to stand dueto presyncopal symptoms. Given 500 cc bolus in the ED. Will give another 500 cc of LR over 4 hours this afternoon. Will repeat orthostatic vital signs this evening, and can consider giving further IV fluids if needed. Will hold home Lasix for now. Notably pacemaker was interrogated in the ED with no issues noted. 2. Mild creatinine elevation in setting of CKD stage IIIb ? Creatinine 1.73 on admit. Baseline appears to be around 1.4-1.5. Suspect secondary to overdiuresis as above. Giving IV fluids as above, follow-up a.m. BMP and monitor urine output. 3. 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 On home 2 L at rest and 3 L with exertion. Stable on home oxygen on admit. Recent hospitalization at [place] from 04/12-04/17 for right sided hydropneumothorax, community-acquired ammonia and COPD exacerbation, see HPI forfurther details. In short, had thoracentesis done with 1000 ml removed; no needfor surgical intervention per CT surgery there. Chest x-ray on this admission showed diffuse interstitial pulmonary densities with costophrenic angles obscured consistent with pleural effusions. However, given his clinical presentation, suspect that these findings are more chronic in nature rather thanconsistent with acute HFpEF. Giving IV fluids on admit as above. Will need to watch patient's oxygenation closely. Continue home inhalers. 4. Chronic HFpEF, chronic A-fib on Eliquis, recent history of tachybradycardia syndrome and sinus pauses s/p pacemaker placement, CAD with CABG x 3, PAD with aortofemoral bypass, hypertension, hyperlipidemia ? Follows with outpatient cardiology. Recently had pacemaker placed on 04/09 fortachybradycardia syndrome and sinus pauses. In rate controlled A-fib on this admission and hypovolemic appearing on exam as above. BNP 3388, which notably is significantly less than 7022 on 04/12. Given gentle IV fluids as above. Continue home Eliquis, Plavix, Toprol, and statin. Notably, patient had been increased to Toprol 25 mg twice daily during recent [place] admission but given his presyncopal symptoms here and and remaining in rate controlled A-fib, will decrease back to prior dosing of Toprol 12.5 mg twice daily. Holding home Lasix. 5. Type 2 diabetes mellitus ? Recent A1c 6.3% on 03/04. Glucose 132 on admit. Will continue home Lantus at reduced dose of 20 units at night and start Humalog sliding scale insulin with meals, adjust as needed. Hold home linagliptin. 6. BPH with obstructive symptoms ? Okay to continue home tamsulosin 0.4 mg daily for now. However, if patient has continued significant presyncopal symptoms and positive orthostatics despitefluid resuscitation as above, may need to consider holding tamsulosin. 7. Chronic anemia of renal disease ? Hemoglobin stable at baseline 9-10 on admission. DVT prophylaxis: Not indicated, on Eliquis CODE STATUS: Full code, verified Expected disposition: Likely back to TCU, 1 to 2 days Total clinical time spent by myself addressing the patient's medical issues, reviewing all the data, and collaborating with patient's care team: 78 minutes. Charges/Coding Visit Charges Inpatient E&M: 83306 Init Hosp L3 04/19/25 1422 <Electronically signed by Kwaku Narayanan DO> Cosigner Signature (if applicable): CC: Dr. Kwaku Narayanan, ; Dr. Tonio Fajardo DO~ Signed [facility] Work Phone: 1(163) 184-840408-31-2025 Discharge summary Author Casper Iniguez [facility] Note Date/Time April 19, 2025 10 :43am [facility] Medical Records Department [address] [place] [address] Emergency Department Summary 04/19/25 MR#: [id number] Acct: [id number] Name: PEDRO HILLMAN Rep #:[id number] : 1945 80 From: Casper Pyle PCP: Dr. Tonio Fajardo DO Status:REG ER Location: ED HPI History of Present Illness Chief [facility]: [facility] Medical History Presence of cardiac pacemaker Peripheral arterial disease Other persistent atrial fibrillation New onset atrial flutter COVID Wears hearing aid in both ears Former smoker Coronary artery disease Peripheral vascular occlusive disease BPH (benign prostatic hyperplasia) Chronic kidney disease, stage 3 Atherosclerosis of coronary artery of [place] heart without angina pectoris Hyperlipidemia Lower extremity [...] hr (Mucinex) #20 tabs OXYGEN - Supplemental ([facility] 04/09/25 Unknown History INFORMATIONAL USE ONLY) aspirin [...] Notes his pacemaker was placed recently at [facility]. Denies any pain over pacemaker site. [...] MEDICAL DECISION MAKING: Chief Complaint: please see [facility] External records reviewed: Pacemaker was placed here with [facility] on 04/09/[address] Hsu Reviewed prior [...] - Noted patient safe to stay at [facility]. States he should be able to [...] to PCU This note was generated with [employer] dictation software. It may contain incorrectwords, spelling, [...] 75.0 H Lymph % (Auto) 9.1 L Carlton % (Auto) 11.3 H Eos % (Auto) [...] CHF compared to x-ray 04/12/2025. Reading Location: [facility] Discharge Plan Triage Chief Complaint: Syncope ED [...] Qty: 60 0RF (DME) OXYGEN - Supplemental ([facility] INFORMATIONAL USE ONLY) Gas See Rx Instructions [...] DO [Primary Care Provider] - Print Language: Martiniquais What to do if you have Problems For any increased pain, shortness of breath, bleeding, nausea or vomiting, chestpain, or any unexpected problems, contact your Primary Care Provider. Call [employer] [facility] ([phone]) or report to the closest Emergency Room. Call 911 if necessary. 04/19/25 1043 <Electronically signed by Casper Iniguez DO> Cosigner Signature (if applicable): CC: Dr. Tonio Fajardo, ~ Signed [facility] Work Phone: 1(121) 178-353408-31-2025 Progress note Author Mukul Barbosa [facility] Note Date/Time April 19, 2025 10 :10am [facility] Medical Records Department [address] [facility] [place] [address] Progress Note - Pharmacy 04/19/25 08 MR#: [id number] Acct: [id number] Name: PEDRO HILLMAN Rep #:[id number] : 1945 80 From: Mukul Barbosa PCP: Dr. Tonio Fajardo DO Status:ADM IN Location: TCU TCU22-1 Documented by User: Mukul Barbosa 04/19/25 08:39 [...] 22:00 04/19/25 08:07 Apixaban 2.5 Mg Tablet ([facility]) PO 2.5 mg BID FROY Administration Calamine/Phenol 1 applic 04/18/25 10:00 04/18/25 21:40 Menthol/Lanolin/Calamine/Znox 113 Gm Tube TOPICAL 1 applic BID [facility] Administration Protocol Clopidogrel Bisulfate 75 mg 04/18/25 [...] Powder 15gm Bottle TOPICAL 1 applic BID [facility] Administration Protocol Pravastatin Sodium 20 mg 04/17/25 [...] 0839 <Electronically signed by Mukul Barbosa> Mukul Amos Signature (if applicable): 04/19/25 1010 <Electronically signed by Valdez Olivo MD> CC: ~ Signed [facility] Work Phone: 1(405) 732-787008-31-2025 Radiology Diagnostic study [facility]08-30-2025 Note. MICRO - Microbiology PROCEDURE: Blood [...] Locations *1: This test was performed at: [address], [facility] , [facility] [id number] Note. MICRO - Microbiology PROCEDURE: Blood Culture [...] Locations *1: This test was performed at: [address], [facility] , [facility] [id number] History and physical note Author Valdez Olivo [facility] Note Date/Time April 18, 2025 6: 56am [facility] Medical Records Department [address] [place] [address] History & Physical Exam 04/17/251940 MR#: [id number] Acct: [id number] Name: PEDRO HILLMAN Rep #:[id number] : 1945 80 From: Valdez Olivo MD PCP: Dr. Tonio Fajardo, DO Status:ADM IN Location: U TCU22-1 HPI - General General Date of Admission: 04/17/25 Date of Service: 04/18/25 Chief Complaint: Here for rehabilitation. HPI Narrative PEDRO HILLMAN, is a 80 Male who presents with followin04/12/2025 [facility] ED TCU resident shortness of breath, hypoxia, tachycardia. Diagnosed with pneumothorax, pneumonia, acute on chronic HFpEF, COPD exacerbation. Transfer to [facility] 2/2 complicated pneumothorax. 04/13/2025 Admit [facility]. Ceftriaxone, Azithromycin, blood cultures, urinary [...] rehabilitation, strengthening, prior to discharge home alone. [facility] Medical History (Updated 04/18/25 @ 00:01 by Background Daemon) Presence of cardiac pacemaker Peripheral arterial disease Other persistent atrial fibrillation New onset atrial flutter COVID Wears hearing aid in both ears Former smoker Coronary artery disease Peripheral vascular occlusive disease BPH (benign prostatic hyperplasia) Chronic kidney disease, stage 3 Atherosclerosis of coronary artery of [place] heart without angina pectoris Hyperlipidemia Lower extremity [...] hr (Mucinex) #20 tabs OXYGEN - Supplemental ([facility] 04/09/25 Unknown History INFORMATIONAL USE ONLY) aspirin [...] History (Updated 04/18/25 @ 00:01 by Background Danixon) History of permanent cardiac pacemaker placement H/O [...] Fajardo DO; Dr. Valdez Olivo MD~ Signed [facility] Work Phone: 1(462) 682-372108-29-2025 [facility]08-29-2025 Discharge summary Date of Service 04/17/2025 Discharge [...] nasal cannula presented as a transfer from [facility] for further evaluation of possible hydropneumothorax. Apparently, patient underwent pacemaker placement at [facility] last week , next day, patient was found to have pleural effusion and underwent thoracentesis and was admitted to rehab at [facility]. Patient found to have hypoxia [...] with cardiothoracic surgery, he was transferred to [facility]. Patient admitted to hospital service, started [...] tablet)500 Milligram by mouth every day. insulin qgigflbe52 unit(s) Subcutaneous daily at bedtime. metoprolol (metoprolol succinate 25 mg oral TABLET extended release)0.5 tab(s) by mouth two (2) times a day. Do not crush or chew (controlled release). multivitamin with minerals (Multi-Braden)1 tab by mouth every day. ndztjxljqio55 Milligram by mouth once a day. SITagliptin (Januvia 50 mg oral tablet)1 tab(s) by mouth once a day. tamsulosin (tamsulosin 0.4 mg oral capsule)1 cap by mouth once a day. umeclidinium-vilanterol (Anoro Ellipta 62.5 mcg-25 mcg/inh inhalation powder)1 puff(s) by inhalation once a day. Discontinued cefdinir (cefdinir 300 mg oral capsule)1 cap by mouth every 12 hours for 5 Days. jfjlubUVUU18 Milligram by mouth two (2) times a day for 5 Days. Follow Up Follow Up with TONIO FAJARDO DO When:Within 1-2 days Where:[address] [place] [address]- Additional Information: Please call the office to [...] by JERO ROSARIO on 04/17/2025 01:18 PM [facility]kyek[facility]po74[facility]-1587 Hospital Discharge instructions Patient Education 04/17/2025 13:56:28 [...] says it is okay. General instructions Take bpkn-qkx-eodsygi and prescription medicines only as told by [...] 08/06/2006 Document Revised: 07/19/2018 Document Reviewed: 07/15/2018 [employer] Patient Education [employer]. Follow Up Care 04/13/2025 00:27:18 With:[facility] - [phone] Address:Unknown When:1-2 days With:TONIO FAJARDO DO Address: [address] [place] [address]- When:1-2 days Comments:Please call the office to schedule a hospital follow up appointment. [facility] 08-29-2025 Note Discharge Instructions Thank you for allowing [place] to assist you with your healthcare needs. The following is importantdischarge information regarding your hospital visit. Your Care Team TONIO FAJARDO DO Your Diagnosis Atrial fibrillation BPH (benign prostatic hyperplasia) CAD in ho-chunk artery s/p CABG Cardiac pacemaker in situ Chronic anemia CKD (chronic kidney disease) COPD with hypoxia Diabetes Diastolic heart failure Elevated troponin HLD (hyperlipidemia) HTN (hypertension) PAD (peripheral artery disease) Peripheral neuropathy Pneumonia Right Hydropneumothorax What to do next Follow Up Appointments Follow Up with [place] - [phone] When:Within 1-2 days Follow Up with TONIO FAJARDO DO When:Within 1-2 days Where:[address] [place] [address]- Additional Information: Please call the office to [...] says it is okay. General instructions Take xlba-frx-juuztte and prescription medicines only as told by [...] 08/06/2006 Document Revised: 07/19/2018 Document Reviewed: 07/15/2018 [employer] Patient Education 2020 [employer]. Additional Information VACCINATE! IT SAVES LIVES! Members of the community who have not yet received the COVID-19 vaccine and would like to receive it can visit one of [facility] vaccine clinics. There are many vaccine clinic locations within the [facility]. For locations and available times, please visit [email or web address].[place].gov/. It is important to note that some COVID mobile vaccine clinics are held outdoors and may be canceled in rainy or stormy conditions. To learn more about pediatric vaccinations (ages 5-11), we invite you to visit the [facility] webpage. https://www.[facility].org/pages/4954-Aehrf-Uhspqumdksy-Gfvbhieauv-Syfmn-Oir stions.htmlTo learn more about the COVID-19 vaccine, we invite you to visit the CDC website for a list of frequently asked questions.https://www.cdc.gov/coronavirus/2019-ncov/vaccines/faq.html [facility] Patient Portal Access Instructions: Stay connected with your healthcare team and access your personal medical information anytime with the [employer] Patient Portal. Please follow the directions below to create your [employer] account: 1.Access the email account you provided upon registration to the hospital/physician office.2.Look for an invitation email from [facility].3.Open the email and access the invitation link: AcceptInvitation to [employer].4.Fill in the required johnson to create your account. To access your account, visit [email or web address]. Click the blue button labeled Access Patient [...] who you will allowto register on the [facility] Patient Portal for access to your information. You can also access the [facility] Patient Portal on the [place] [facility] katia. Simply click on Patient Portal and then log into your account. If you would like to receive a full copy of your medical records, please contact the [facility] Medical Records Department by calling [phone], Sunday through Sunday between 8 a.m. and [...] Call your local pharmacy or go to [email or web address]/[email or web address] to find one close to you.3.Make use of household items: Use cat litter or old coffee grounds to dispose medications if other options arenot available. Mix your drugs with these household products, seal them in an airtight container andthrow it into the garbage. Call [facility]: [phone] to be sure your drugs can be [...] aware that I should contact my doctor. 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 The following is importantdischarge information regarding your hospital visit. Your Care Team TONIO FAJARDO DO Your Diagnosis Atrial fibrillation BPH (benign prostatic hyperplasia) CAD in ho-chunk artery s/p CABG Cardiac pacemaker in situ Chronic anemia CKD (chronic kidney disease) COPD with hypoxia Diabetes Diastolic heart failure Elevated troponin HLD (hyperlipidemia) HTN (hypertension) PAD (peripheral artery disease) Peripheral neuropathy Pneumonia Right Hydropneumothorax What to do next Follow Up Appointments Follow Up with Waqar [facility] - [phone] When:Within 1-2 days Follow Up with TONIO FAJARDO DO When:Within 1-2 days Where:[address] [place] [address]- Additional Information: Please call the office to [...] to receive it can visit one of [facility] vaccine clinics. There are many vaccine clinic locations within the [facility]. For locations and available times, please visit https://[email or web address].[email or web address]/. It is important to note that some COVID mobile vaccine clinics are held outdoors and may be canceled in rainy or stormy conditions. To learn more about pediatric vaccinations (ages 5-11), we invite you to visit the [facility] webpage. https://www.[facility].coms.org/pages/0226-Qxybi-Jzfwqunkhrp-Wkdmgymvey-Qevvl-Fma stions.htmlTo learn more about the COVID-19 vaccine, we invite you to visit the CDC website for a list of frequently asked questions.https://www.cdc.gov/coronavirus/2019-ncov/vaccines/faq.html [employer] Patient Portal Access Instructions: Stay connected with your healthcare team and access your personal medical information anytime with the [employer] Patient Portal. Please follow the directions below to create your [employer] account: 1.Access the email account you provided upon registration to the hospital/physician office.2.Look for an invitation email from [facility].3.Open the email and access the invitation link: AcceptInvitation to [employer].4.Fill in the required johnson to create your account. To access your account, visit [email or web address]. Click the blue button labeled Access Patient Portal and then log in with the username and password that you created in the steps above. You will be able to view your test results, lab results, a summary of your visits, upcoming appointments and more. There is also a convenient messaging option where you can send secure messages to your p Cinnamonvider. In addition, you will have the ability to download any documents or summaries to your computer and/or send the information securely to a physician. Remember that your healthcare information is confidential, so carefully consider who you will allowto register on the [employer] Patient Portal for access to your information. You can also access the [employer] Patient Portal on the [facility] katia. Simply click on Patient Portal and then log into your account. If you would like to receive a full copy of your medical records, please contact the [facility] Medical Records Department by calling [phone], Sunday through Sunday between 8 a.m. and [...] Call your local pharmacy or go to [email or web address]/[email or web address] to find one close to you.3.Make use of household items: Use cat litter or old coffee grounds to dispose medications if other options arenot available. Mix your drugs with these household products, seal them in an airtight container andthrow it into the garbage. Call [facility]: [phone] to be sure your drugs can be [...] aware that I should contact my doctor. 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 Apparently, patient underwent pacemaker placement at [facility] last week , next day, patient was found to have pleural effusion and underwent thoracentesis and was admitted to rehab at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 ultrasound-guided right thoracentesis. Laboratory results pending. Reading [facility] Instructions Call your doctor if you [...] Primary Care Provider: Tonio Fajardo Consulting Providers: Dvaon Saravia; Nicola Lindsey; Deric Lantigua; Issa Looney [...] 2RF No Action (DME) OXYGEN - Supplemental ([facility] INFORMATIONAL USE ONLY) Gas See Rx Instructions .ROUTE Patient Comments: 2 lpm at rest, 3 lpm on exertion, 2 lpm at HS DME company: [employer] per Rx Instructions: As directed Referrals / Follow Up: Carol Sousa [Registered Nurse] - 04/21/25 10:00 am ( FOLLOW UP PACER AND WOUNDCHECK ) Tonio Fajardo DO [Primary Care Provider] - Within 1 Week Disposition Disposition (needs filled in before D/C Order can be placed): Home, Self Care Charges/Coding Visit Charges Inpatient E&M: 10252 Disch Hosp >30min 04/10/25 1623 <Electronically signed by Nicola Roman MD> Cosigner Signature (if applicable): CC: Dr. Nicola Roman MD; Dr. Tonio Fajardo DO~ Signed [facility] Work Phone: 1(987) 656-219808-22-2025 [facility]08-22-2025 Radiology Diagnostic study [facility]08-22-2025 Hospital Discharge instructionsAdditional Instructions Date of Discharge: 04/10/25[facility] Work Phone: 1(257) 730-757508-22-2025 Progress note Author Nicola Roman [facility] Note Date/Time April 10, 2025 9: 18am [facility] Medical Records Department [address] [place] [address] Progress Note - Hospitalist 04/10/25 0750 MR#: [id number] Acct: [id number] Name: PEDRO HILLMAN Rep #:[id number] : 1945 80 From: Nicola Roman MD PCP: Dr. Tonio Fajardo DO Status:ADM IN Location: [place] [id number]- 1 Reason for Visit Chief Complaint: SOB, [...] (Auto) 91.6 H, Lymph % (Auto) 1.9L, Carlton % (Auto) 5.5, Eos % (Auto) 0.0, [...] pleural effusions consistent with CHF. Reading Location: [facility] Physical Exam Narrative S GENERAL: dyspneic at [...] treated with radiation therapy currently followed by [facility] oncology and will start 8. Chronic [...] 52 Minutes Charges/Coding Visit Charges Inpatient E&M: 72442 Subs Hosp L3 04/10/25 0918 <Electronically signed by Nicola Roman MD> Cosigner Signature (if applicable): CC: ~ Signed [facility] Work Phone: 1(113) 480-181208-22-2025 Radiology Diagnostic study [facility]08-21-2025 Radiology Diagnostic study [facility]08-21-2025 Procedure [facility]08-21-2025 Progress note Author Nicola Roman [facility] Note Date/Time April 09, 2025 11 :31am [facility] Medical Records Department [address] [place] [address] Progress Note - Hospitalist 04/09/25 1125 MR#: [id number] Acct: [id number] Name: PEDRO HILLMAN Rep #:[id number] : 1945 80 From: Nicola Roman MD PCP: Dr. Tonio Fajardo, DO Status:ADM IN Location: [place] [address]- Reason for Visit Chief Complaint: SOB, Cough [...] (Auto) 91.8 H, Lymph % (Auto) 2.8L, Carlton % (Auto) 4.7, Eos % (Auto) 0.0, [...] treated with radiation therapy currently followed by [facility] oncology and will start 8. Chronic [...] 50 Minutes Charges/Coding Visit Charges Inpatient E&M: 45156 Subs Hosp L3 04/09/25 1131 <Electronically signed by Nicola Roman MD> Cosigner Signature (if applicable): CC: ~ Signed [facility] Work Phone: 1(235) 910-414708-20-2025 Consult note Author Issa Looney [facility] Note Date/Time April 08, 2025 7: 12pm [facility] Medical Records Department [address] [place] [address] Consultation - Cardiology 04/08/251905 MR#: [id number] Acct: [id number] Name: PEDRO HILLMAN Rep #:[id number] : 1945 80 From: Issa Looney MD PCP: Dr. Tonio Fajardo, DO Status:ADM IN Location: [place] [address]- 1 Assessment & Plan Assessment/Plan (1) Chronic [...] disease: QUALIFIERS: Coronary Disease-Associated Artery/Lesion type: nativeartery [place] vs. transplanted heart: ho-chunk heart Associated angina: without angina Qualified Code(s): I25.10 - Atherosclerotic heart disease of ho-chunk coronary artery without angina pectoris PLAN: He [...] has documented pauses over 8 seconds present. [facility] Medical History Peripheral arterial disease Other persistent atrial fibrillation New onset atrial flutter COVID Wears hearing aid in both ears Former smoker Coronary artery disease Peripheral vascular occlusive disease BPH (benign prostatic hyperplasia) Chronic kidney disease, stage 3 Atherosclerosis of coronary artery of ho-chunk heart without angina pectoris Hyperlipidemia Lower extremity [...] (Auto) 91.4 H, Lymph % (Auto) 3.5L, Carlton % (Auto) 4.5, Eos % (Auto) 0.0, [...] 91.4 H, Lymph % (Auto) 3.5 L, Carlton % (Auto) 4.5, Eos % (Auto) 0.0, [...] applicable): CC: Dr. Tonio Fajardo, ~ Signed [facility] Work Phone: 1(145) 301-960308-20-2025 Consult note Author Renae Sarabia [facility] Note Date/Time April 08, 2025 6: 51pm [facility] Medical Records Department [address] [place] [address] Consultation - Nephrology 04/06/25 1153 MR#: [id number] Acct: [id number] Name: PEDRO HILLMAN Rep #:[id number] : 1945 80 From: Renae shultz DERRICK ENGINEER-C PCP: Dr. Tonio Fajardo, Status:ADM IN Location: [place] [address] Assessment & Plan Assessment/Plan (1) DARIUSZ (acute [...] He he was last seen in our [place] office in April 2021. CKD is secondary [...] NSAIDs. Denies any hematuria, dysuria, frequency, nocturia. [facility] Medical History Peripheral arterial disease Other persistent atrial fibrillation New onset atrial flutter COVID Wears hearing aid in both ears Former smoker Coronary artery disease Peripheral vascular occlusive disease BPH (benign prostatic hyperplasia) Chronic kidney disease, stage 3 Atherosclerosis of coronary artery of ho-chunk heart without angina pectoris Hyperlipidemia Lower extremity [...] (Auto) 79.7 H, Lymph % (Auto) 7.3L, Carlton % (Auto) 10.7 H, Eos % (Auto) [...] Clarity Clear, Urine pH 5.0, Ur Specific Venus 1.015, Urine Protein 100 H, Urine Glucose [...] (Auto) 81.9 H, Lymph % (Auto) 6.4L, Carlton % (Auto) 10.1 H, Eos % (Auto) [...] process cannot be reliably excluded. Reading Location: [id number] Chest X-Ray 04/06/25 04:13 IMPRESSION: Unchanged bilateral pleural effusions. Unchanged passive atelectatic airspace disease of the lower lobes. Unremarkable median sternotomy wires. Minimal decrease in pulmonary congestion/infiltrates. Enlarged cardiac silhouette. Reading [facility] 04/06/25 1226 <Electronically signed by Renae ZHONG> Cosigner Signature (if applicable): 04/08/25 1851 <Electronically signed by Davon Saravia MD> CC: Dr. Tonio Fajardo, DO~ Signed [facility] Work Phone: 1([phone]) 743-324908-20-2025 Progress note Author Renae Sarabia [facility] Note Date/Time April 08, 2025 6: 51pm [facility] Medical Records Department [address] [place] [address] Progress Note - Nephrology 04/07/25 1046 MR#: [id number] Acct: [id number] Name: PEDRO HILLMAN Rep #:[id number] : 1945 80 From: Renae ZHONG PCP: Dr. Tonio Fajardo, DO Status:ADM IN Location: [place] [id number]- Subjective Subjective Sitting in chair. No overnight [...] 92.8 H, Lymph % (Auto) 3.1 L, Carlton % (Auto) 2.5, Eos % (Auto) 0.0, [...] 12:19 IMPRESSION: NORMAL RENAL ULTRASOUND. Reading Location: [facility] Physical Exam Narrative Alert and [...] 2 L yesterday. 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 Renal ultrasound, normal ultrasound, no hydronephrosis. [...] for hospital follow-up after hospital discharge in [facility]. Assessment and plan reviewed with Dr. Saravia. 04/07/25 5052 <Electronically signed by Renae ZHONG> Cosigner Signature (if applicable): 04/08/25 0342 <Electronically signed by Davon Saravia MD> CC: ~ Signed [facility] Work Phone: 1(747) 797-516408-20-2025 Progress note Author Nicola Roman [facility] Note Date/Time April 08, 2025 3: 41pm [facility] Medical Records Department [address] [place] [address] Progress Note - Hospitalist 04/08/25 0757 MR#: [id number] Acct: [id number] Name: PEDRO HILLMAN Rep #:[id number] : 1945 80 From: Nicola Roman MD PCP: Dr. Tonio Fajardo, DO Status:ADM IN Location: [place] [address] Reason for Visit Chief Complaint: SOB, Cough [...] (Auto) 91.4 H, Lymph % (Auto) 3.5L, Carlton % (Auto) 4.5, Eos % (Auto) 0.0, [...] treated with radiation therapy currently followed by [facility] oncology and will start 7. Chronic [...] 35 Minutes Charges/Coding Visit Charges Inpatient E&M: 33660 Subs Hosp L2 04/08/25 1113 <Electronically signed [...] Cosigner Signature (if applicable): cc: ~* Signed [facility] Work Phone: 1(129) 945-976108-20-2025 Discharge summary Author Nicola Roman [facility] Note Date/Time April 08, 2025 1: 45pm [facility] Medical Records Department [address] [place] [address] Discharge Summary 04/08/25 1114 MR#: [id number] Acct: [id number] Name: PEDRO HILLMAN Rep #:[id number] : 1945 80 From: Nicola Roman MD PCP: Dr. Tonio Fajardo, Status:ADM IN Location: [facility] [id number]- 1 Providers Date of Admission: 04/05/25 Date of Discharge: 04/08/25 Primary Care Physician: Dr. Tonio Fajardo DO Consultations 04/05/25 20:36 Consult: Nephrology Routine Consulting Provider: Daovn Saravia Reason for Consult: CKD; stage IV with Hyperkalemia and AE CHF. EMERGENT Consult: No MD Notified: Yes Date Notified: 04/06/25 Time Notified: 06:58 Method of Notification: Answering Service 04/06/25 07:14 Consult: Onc/Wound/relief mate Routine Comment: Reason for Consult:: burn R [...] treated with radiation therapy currently followed by [facility] oncology and will start 7. Chronic [...] (Auto) 91.4 H, Lymph % (Auto) 3.5L, Carlton % (Auto) 4.5, Eos % (Auto) 0.0, [...] Self Care Charges/Coding Visit Charges Inpatient E&M: 49786 Disch Hosp >30min 04/08/25 1345 <Electronically signed by Nicola Roman MD> Cosigner Signature (if applicable): CC: Dr. Nicoal Roman MD; Dr. Tonio Fajardo DO~ Signed [facility] Work Phone: 1(409) 868-608308-20-2025 [facility]08-19-2025 Progress note Author [facility]ola [facility] Note Date/Time April 07, 2025 11 :26am [facility] Medical Records Department [address] [place] [address] Progress Note - Hospitalist 04/07/25 1113 MR#: [id number] Acct: [id number] Name: PEDRO HILLMAN Rep #:[id number] : 1945 80 From: Nicola Roman MD PCP: Dr. Tonio Fajardo DO Status:ADM IN Location: [place] [address] Reason for Visit Chief Complaint: SOB, Cough [...] 92.8 H, Lymph % (Auto) 3.1 L, Carlton % (Auto) 2.5, Eos % (Auto) 0.0, [...] 12:19 IMPRESSION: NORMAL RENAL ULTRASOUND. Reading Location: [facility] Physical Exam Narrative S GENERAL: [...] treated with radiation therapy currently followed by [facility] oncology and will start 7. Chronic [...] 52 Minutes Charges/Coding Visit Charges Inpatient E&M: 57281 Subs Hosp L3 04/07/25 1126 <Electronically signed by Nicola Roman MD> Cosigner Signature (if applicable): CC: ~ Signed [facility] Work Phone: 1(588) 804-635108-18-2025 Progress note Author Deric Lantigua [facility] Note Date/Time April 06, 2025 4: 53pm [facility] Medical Records Department [address] [place] [address] Progress Note - Hospitalist 04/06/25 0837 MR#: [id number] Acct: [id number] Name: PEDRO HILLMAN Rep #:[id number] : 1945 80 From: Deric Smith PCP: Dr. Tonio Fajardo, DO Status:ADM IN Location: [place] [address]- Reason for Visit Chief Complaint: SOB, Cough [...] (Auto) 79.7 H, Lymph % (Auto) 7.3L, Carlton % (Auto) 10.7 H, Eos % (Auto) [...] Clarity Clear, Urine pH 5.0, Ur Specific Venus 1.015, Urine Protein 100 H, Urine Glucose [...] (Auto) 81.9 H, Lymph % (Auto) 6.4L, Carlton % (Auto) 10.1 H, Eos % (Auto) [...] process cannot be reliably excluded. Reading Location: [facility] Chest X-Ray 04/06/25 04:13 IMPRESSION: Unchanged bilateral pleural effusions. Unchanged passive atelectatic airspace disease of the lower lobes. Unremarkable median sternotomy wires. Minimal decrease in pulmonary congestion/infiltrates. Enlarged cardiac silhouette. Reading Location: [place] [address] Physical Exam Narrative Seen and examined Patient [...] oxygen requirement with increasing productive cough. Patient's offsgway-uq-gid increased O2 to 4 L. Noleg swelling. [...] fib: Currently patient in sinus rhythm. On pvc monitor sinus rhythm 105 bpm. During previous [...] (Auto) 79.7 H, Lymph % (Auto) 7.3L, Carlton % (Auto) 10.7 H, Eos % (Auto) [...] Clarity Clear, Urine pH 5.0, Ur Specific Venus 1.015, Urine Protein 100 H, Urine Glucose [...] (Auto) 81.9 H, Lymph % (Auto) 6.4L, Carlton % (Auto) 10.1 H, Eos % (Auto) [...] 140 H Charges/Coding Visit Charges Inpatient E&M: 58599 Subs Hosp L3 04/06/25 1653 <Electronically signed by Deric Lantigua MD> Cosigner Signature (if applicable): CC: ~ Signed [facility] Work Phone: 1(946) 812-627608-18-2025 Radiology [facility] History and physical note Author Nicola Madison [facility] Note Date/Time April 06, 2025 6: 23am [facility] Medical Records Department [address] [place] [address] H&P Exam - Hospitalist 04/05/251917 MR#: [id number] Acct: [id number] Name: PEDRO HILLMAN Nora Rep #:[id number] : 1945 80 From: Nicola Levy DO PCP: Dr. Tonio Fajardo DO Status:ADM IN Location: [place] [id number] 1 HPI - General General Date of [...] patient still FULL CODE who presents to [facility] ER complaining of shortness of breath, [...] status expected to extend beyond 2 midnights. [facility] Medical History Peripheral arterial disease Other persistent atrial fibrillation New onset atrial flutter COVCOLETTE Wears hearing aid in both ears Former smoker Coronary artery disease Peripheral vascular occlusive disease BPH (benign prostatic hyperplasia) Chronic kidney disease, stage 3 Atherosclerosis of coronary artery of ho-chunk heart without angina pectoris Hyperlipidemia Lower extremity [...] (Auto) 79.7 H, Lymph % (Auto) 7.3L, Carlton % (Auto) 10.7 H, Eos % (Auto) [...] process cannot be reliably excluded. Reading Location: [facility] Assessment & Plan Assessment/Plan (1) Acute on [...] 75 minutes. Charges/Coding Visit Charges Inpatient E&M: 38973 Init Hosp L3 04/06/25 0623 <Electronically signed by Nicola Lindsey DO> Cosigner Signature (if applicable): CC: Dr. Nicola Lindsey DO; Dr. Tonio Fajardo DO~ Signed [facility] Work Phone: 1(805) 520-395208-18-2025 Radiology Diagnostic study [facility]08-18-2025 Discharge summary Author Ld Hayes [facility] Note Date/Time April 06, 2025 12 :36am [facility] Medical Records Department [address] [place] [address] Emergency Department Summary 04/05/25 MR#: [id number] Acct: [id number] Name: PEDRO HILLMAN Rep #:[id number] : 1945 80 From: Ld Quintero PCP: Dr. Tonio Fajardo DO Status:ADM IN Location: [place] [address] HPI History of Present Illness Chief Complaint: Hypotension Informant: patient and family Narrative Narrative: Presents by EMS from home daughter in law present. Increasing productive cough. Chronic oxygenation of 3 L for COPD history remote history of lung cancer. Xbdqekzi-qe-ksw reports that increase his oxygen to 4 [...] CKD history. He is followed by [facility]. Reports he was admitted 3 weeks ago approximately had his metoprolol held and placed on diltiazem. Prior similar symptoms: Yes [facility] Medical History Peripheral arterial disease Other persistent atrial fibrillation New onset atrial flutter COVID Wears hearing aid in both ears Former smoker Coronary artery disease Peripheral vascular occlusive disease BPH (benign prostatic hyperplasia) Chronic kidney disease, stage 3 Atherosclerosis of coronary artery of ho-chunk heart without angina pectoris Hyperlipidemia Lower extremity [...] clinician: Hospitalist This note was generated with [employer] dictation software. It may contain incorrectwords, spelling, [...] 79.7 H Lymph % (Auto) 7.3 L Carlton % (Auto) 10.7 H Eos % (Auto) [...] process cannot be reliably excluded. Reading Location: [facility] Discharge Plan Dx/Rx/DC Orders Clinical Impression: CHF exacerbation, Chronic kidney disease, stage 3, Atrial flutter, Chronic anticoagulation, Hyperkalemia Disposition Disposition: Acute Care Hospital [facility] Discharge Date/Time: 04/05/25 20:38 What to do if you have Problems For any increased pain, shortness of breath, bleeding, nausea or vomiting, chestpain, or any unexpected problems, contact your Primary Care Provider. Call [facility] ([phone]) or report to the closest Emergency Room. Call 911 if necessary. 04/06/25 0036 <Electronically signed by Ld Quintero> Cosigner Signature (if applicable): CC: Dr. Tonio Fajardo DO ~ Signed [facility] Work Phone: 1(229) 642-162708-17-2025 Radiology Diagnostic study [facility]07-27-2025 Discharge summary [facility] Medical Records Department [address] [place] [address] Emergency Department Summary 03/15/25 MR#: [id number] Acct: [id number] Name: PEDRO HILLMAN Rep #:[id number] : 1945 80 From: Alex Matias MD [...] symptoms: Yes Recent Illness/Hospitalization: Yes (CHF) PFSH [facility] Medical History Other persistent atrial fibrillation New onset atrial flutter DIMA Wears hearing aid in both ears Former smoker Coronary artery disease Peripheral vascular occlusive disease BPH (benign prostatic hyperplasia) Chronic kidney disease, stage 3 Atherosclerosis of coronary artery of ho-chunk heart without angina pectoris Hyperlipidemia Lower extremity [...] 4 doses of apixaban, Eliquis Print Language: Martiniquais Disposition Disposition: Home, Self Care What to do if you have Problems For any increased pain, shortness of breath, bleeding, nausea or vomiting, chestpain, or any unexpected problems, contact your Primary Care Provider. Call [facility] ([phone]) or report tothe closest Emergency Room. Call 911 if necessary. 03/15/251821 Cosigner Signature (if applicable): CC: Dr. Tonio Fajardo DO ~ Signed [facility]07-27-2025 Discharge summary Author Alex Matias [facility] Note Date/Time March 15, 2025 6:22 pm [facility] Medical Records Department [address] [place] [address] Emergency Department Summary 03/15/25 MR#: [id number] Acct: [id number] Name: KADY,PEDRO Nora Rep #:[id number] : 1945 80 From: Alex Matias MD [...] similar symptoms: Yes Recent Illness/Hospitalization: Yes (CHF) [facility] Medical History Other persistent atrial fibrillation New onset atrial flutter COVID Wears hearing aid in both ears Former smoker Coronary artery disease Peripheral vascular occlusive disease BPH (benign prostatic hyperplasia) Chronic kidney disease, stage 3 Atherosclerosis of coronary artery of ho-chunk heart without angina pectoris Hyperlipidemia Lower extremity [...] 4 doses of apixaban, Eliquis Print Language: Martiniquais Disposition Disposition: Home, Self Care What to do if you have Problems For any increased pain, shortness of breath, bleeding, nausea or vomiting, chestpain, or any unexpected problems, contact your Primary Care Provider. Call [facility] ([phone]) or report to the closest Emergency Room. Call 911 if necessary. 03/15/25 182 <Electronically signed by Alex Matias MD> Cosigner Signature (if applicable): CC: Dr. Tonio Fajardo DO ~ Signed [facility] Work Phone: 1(816) 624-715707-27-2025 Hospital Discharge instructionsAdditional Instructions 1. Hold the next 4 doses of apixaban, Eliquis. 2. Take amoxicillin as prescribed until gone 3. Contact Dr. Vasquez's office in the morning to be seen later this week to have the pack removed.[facility] Work Phone: 1(353) 678-134607-21-2025 Consult note [facility] Medical Records Department [address] [place] [address] Counseling Note - Pharmacy 03/09/25 1457 MR#: [id number] Acct: [id number] Name: PEDRO HILLMAN Rep #:[id number] : 1945 80 From: Mala Sterling PCP: Dr. Tonio Fajardo, DO Status:ADM IN Y Location: [place] [address] Pharmacy [facility] Counseling Pharmacy Service has performed discharge [...] #30 caps 03/09/25 03/09/25 1458 Date _ [place] Sepulvedashaji Signature (if applicable): Date CC: ~ Signed [facility]07-21-2025 Discharge summary Author Deric Lantigua [facility] Note Date/Time March 09, 2025 12:5 2pm [facility] Medical Records Department [address] [place] [address] Discharge Summary 03/09/25 1251 MR#: [id number] Acct: [id number] Name: PEDRO HILLMAN Rep #:[id number] : 1945 80 From: Deric Smith PCP: Dr. Tonio Fajardo DO Status:ADM [facility] Prov[facility] Date of Admission: 03/04/25 Date of Discharge: 03/09/25 Primary Care Physician: Dr. Tonio Fajardo, Consultations 03/04/25 21:21 Consult: Cardiology Routine Consulting Provider: [facility] Reason for Consult: AE CHF, a [...] Code(s): I25.10 - Atherosclerotic heart disease of ho-chunk coronary artery without angina pectoris Qualifiers: Coronary Disease-Associated Artery/Lesion type: ho-chunk artery [place] vs. 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 ACS ruled out. 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 Repeat proBNP is elevated [...] conduction. Later on irregular variable conduction on pvc monitor 03/06: Discussed with the immigration officer. Metoprolol increased to 25 mg twice daily, [...] pressure in the 90s. Discussed with the immigration officer. Advised to discontinue to discontinue metoprolol and [...] the CODE STATUS. 03/09: Discussed with the immigration officer.Patient heart rate controlled in 70s. Yesterday rate was in 80s. Patient tolerated Cardizem 30 mg every 8 hourly therefore discharged on Cardizem CD 120 mg. I called patient's xfcpmkgg-ae-wfe and explained the medication. Truckload Owner Operator felt probably does not need even [...] at the right lung base. Reading Location: [facility] Echocardiogram 03/04/25 20:08 Interpretation Summary Moderate [...] in right lung base aeration. Reading Location: [place] [address] Medications at Discharge Home Medications insulin glargine [...] Nutrition Assessment Dietitian: Malnutrition Criteria Met Start: 07/17/25 14:17 Freq: Status: Active Protocol: Document 03/05/25 14:17 SB (Rec: 03/05/25 14:17 SB [id number]) Nutrition Malnutrition Evidence of Yes Malnutrition Exists [...] (Auto) 72.6 H, Lymph % (Auto) 9.7L, Carlton % (Auto) 12.1 H, Eos % (Auto) [...] Self Care Charges/Coding Visit Charges Inpatient E&M: 54870 Disch Hosp >30min 03/09/25 1252 <Electronically signed by Deric Lantigua MD> Cosigner Signature (if applicable): CC: Dr. Tonio Fajardo DO; Dr. Willian Glaser MD; Dr. Deric Lantigua MD~ Signed [facility] Work Phone: 1(484) 624-239207-21-2025 Discharge summary Author Deric Lantigua [facility] Note Date/Time March 09, 2025 12:4 4pm [facility] Medical Records Department [address] [place] [address] Instructions for Home/Discharge Instructions 03/09/25 1031 MR#: [id number] Acct: [id number] Name: PEDRO HILLMAN Rep #:[id number] : 1945 80 From: Deric Smith PCP: [...] can be placed): Home, Self Care 03/09/25 8244<Electronically signed by Deric Lantigua MD>Deric Lantigua MD [...] MD; RICKIE Kumari; RICKIE Cummins ~ Signed [facility] Work Phone: 1(343) 221-338307-21-2025 Hospital Discharge instructionsAdditional Instructions Discharge with Claudio catheter. [facility]: [facility] Phone: 1(264) 788-200007-21-2025 Discharge summary [facility] Medical Records Department [address] [place] [address] Discharge Summary 03/09/25 1251 MR#: [id number] Acct: [id number] Name: PEDRO HILLMAN Rep #:[id number] : 1945 80 From: Deric Smith PCP: Dr. Tonio Fajardo DO Status:ADM IN Location: [place] [id number]- 1 Providers Date of Admission: 03/04/25 Date of Discharge: 03/09/25 Primary Care Physician: Dr. Tonio Fajardo DO Consultations 03/04/25 21:21 Consult: Cardiology Routine Consulting Provider: [facility] Reason for Consult: AE CHF, a [...] Code(s): I25.10 - Atherosclerotic heart disease of ho-chunk coronary artery without angina pectoris Qualifiers: Coronary Disease-Associated Artery/Lesion type: ho-chunk artery [place] vs. transplanted heart: nativeheart Associated angina: without angina Qualified Code(s): I25.10 - Atherosclerotic heart disease of ho-chunk coronary artery without angina pectoris (3) Chronic anticoagulation: Status: Acute Code(s): Z79.01 - jail (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 of anticoagulants Plan 80-year-old gentleman [...] no significant delta change. ACS ruled out. 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 Repeat proBNP is elevated [...] conduction. Later on irregular variable conduction on pvc monitor 03/06: Discussed with the immigration officer. Metoprolol increased to 25 mg twice daily, Cardizem 60 mg G7awniwm. If heart rate controlled, will switch to [...] pressure in the 90s. Discussed with the immigration officer. Advised to discontinue to discontinue metoprolol and [...] the CODE STATUS. 03/09: Discussed with the immigration officer.Patient heart rate controlled in 70s. Yesterday rate was in 80s. Patient tolerated Cardizem 30 mg every 8 hourly therefore discharged on Cardizem CD 120 mg. I called patient's jcpnepba-oi-qmb and explained the medication. Truckload Owner Operator felt probably does not need even [...] in right lung base aeration. [facility] Medications at Discharge Home Medications insulin glargine [...] 03/05/25 14:17 SB (Rec: 03/05/25 14:17 SB [id number]) Nutrition Malnutrition Evidence of Yes Malnutrition Exists [...] (Auto) 72.6 H, Lymph % (Auto) 9.7L, Carlton % (Auto) 12.1 H, Eos % (Auto) [...] Self Care Charges/Coding Visit Charges Inpatient E&M: 91689 Disch Hosp >30min 03/09/25 1252 Cosigner Signature (if applicable): CC: Dr. Tonio Fajardo DO; Dr. Willian Glaser MD; Dr. Deric Lantigua MD~ Signed [facility]07-21-2025 [facility]-2025 Discharge summary [facility] Medical Records Department [address] [place] [address] Instructions for Home/Discharge Instructions 03/09/25 1031 MR#: [id number] Acct: [id number] Name: PEDRO HILLMAN Rep #:[id number] : 1945 80 From: Deric Smith PCP: [...] MD; RICKIE Kumari; RICKIE Cummins ~ Signed [facility]07-21-2025 Progress note Author Willian Glaser [facility] Note Date/Time March 09, 2025 9:53 am [facility] Medical Records Department [address] [place] [address] Progress Note - Cardiology 03/09/25 0943 MR#: [id number] Acct: [id number] Name: PEDRO HILLMAN Rep #:[id number] : 1945 80 From: Willian Glaser MD PCP: Dr. Tonio Fajardo, DO Status:ADM IN Location: [place] [address] Subjective Subjective Patient evaluated in a seated [...] (Auto) 72.6 H, Lymph % (Auto) 9.7L, Carlton % (Auto) 12.1 H, Eos % (Auto) [...] 72.6 H, Lymph % (Auto) 9.7 L, Carlton % (Auto) 12.1 H, Eos % (Auto) [...] disease: QUALIFIERS: Coronary Disease-Associated Artery/Lesion type: nativeartery [place] vs. 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 The patient should be reevaluated in 2 to 4 weeks in the [facility] with advanced practitioner. Given the [...] At discharge patient should follow-up with the [facility] advanced practitioner in 2 to 3 weeks. 4. If further assistance is needed please reconsult the [facility]. Charges/Coding Visit Charges Inpatient E&M: 74086 Subs Hosp L3 03/09/25 0953 <Electronically signed by Willian Glaser MD> Cosigner Signature (if applicable): CC: ~ Signed [facility] Work Phone: 1(366) 370-443707-21-2025 Progress note [facility] Medical Records Department [address] [place] [address] Progress Note - Cardiology 03/09/25 0943 MR#: [id number] Acct: [id number] Name: PEDRO HILLMAN Rep #:[id number] : 1945 80 From: Willian Glaser MD PCP: Dr. Tonio Fajardo, DO Status:ADM IN Location: [place] [address] Subjective Subjective Patient evaluated in a seated [...] (Auto) 72.6 H, Lymph % (Auto) 9.7L, Carlton % (Auto) 12.1 H, Eos % (Auto) [...] 72.6 H, Lymph % (Auto) 9.7 L, Carlton % (Auto) 12.1 H, Eos % (Auto) [...] disease: QUALIFIERS: Coronary Disease-Associated Artery/Lesion type: nativeartery [place] vs. 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 The patient should be reevaluated in 2 to 4 weeks in the [facility] with advanced practitioner. Given the [...] At discharge patient should follow-up with the [facility] advanced practitioner in 2 to3 weeks. 4. If further assistance is needed please reconsult the [facility]. Charges/Coding Visit Charges Inpatient E&M: 43506 [facility] Hosp 03/09/25 0953 Cosigner Signature (if applicable): CC: ~ Signed [facility]07-20-2025 Progress note Author Deric Lantigua [facility] Note Date/Time March 08, 2025 1:34 pm [facility] Medical Records Department [address] [place] [address] Progress Note - Hospitalist 03/08/25 0844 MR#: [id number] Acct: [id number] Name: PEDRO HILLMAN Rep #:[id number] : 1945 80 From: Deric Smith PCP: Dr. Tonio Fajardo, DO Status:ADM IN Location: [place] [address] Reason for Visit Chief Complaint: SOB. Objective [...] 03/05/25 14:17 SB (Rec: 03/05/25 14:17 SB [id number]) Nutrition Malnutrition Evidence of Yes Malnutrition Exists [...] also sustained 11 beats of V. tach. radiation monitor reviewed. Still in A-fib/flutter with bradycardia. 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 ACS ruled out. 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 Repeat proBNP is elevated [...] conduction. Later on irregular variable conduction on pvc monitor 03/06: Discussed with the immigration officer. Metoprolol increased to 25 mg twice daily, [...] pressure in the 90s. Discussed with the immigration officer. Advised to discontinue to discontinue metoprolol and [...] in right lung base aeration. Reading Location: [place] [address] Charges/Coding Addendum Addendum: Total time of the visit including total time spent in counseling or coordinationof care, (more than 50% of the total time, spent in obtaining medical information from nurses and other ancillary care providers ,explaining to the patient about labs, imaging, diagnosis and management of active complex medical conditions), multiple active cardiac issues, urinary retention discussion with immigration officer and clinical update given to patient's akmxsvud-kq-qpr, review of labs and imaging is 35 minutes. Visit Charges Inpatient E&M: 67479 Subs Hosp 03/08/25 1040 <Electronically signed by Deric Lantigua MD> Cosigner Signature (if applicable): CC: ~ Signed ADDENDUM by Dr. Deric Lantigua MD on 03/08/25 at 1334 Addendum The patient's son and kdzggszt-hz-dpw came to visit him. They decided patient to be DNR CC arrest with no intubation CODE STATUS changed. Living will/advanced directive/end of life care: Patient does not have living will or advanced directive. He is next of kin is his son and nbtfpbes-ke-dqn. After discussion of benefits/risks procedures involved with full code, DNR CC arrest and DNR CC, the patient and his ewwwyika-hx-jnn he opted for DNR CC arrest with no intubation. Patient also said that he does not want pacemaker but his yotsgqqz-te-efw and son will discuss with him Patient does want artificial life support including intubation, tube feed, ventilator and/chest compression, central venous catheter, vasopressor and DC shock if needed Total time spent in mepz-hf-buka encounter in discussion of advanced directive 17 minutes. 03/08/25 1334<Electronically signed by Deric Lantigua MD> Cosigner Signature (if applicable): cc: ~* Signed [facility] Work Phone: 1(417) 117-551807-20-2025 Progress note [facility] Medical Records Department [address] [place] [address] Progress Note - Hospitalist 03/08/25 0844 MR#: [id number] Acct: [id number] Name: PEDRO HILLMAN Rep #:[id number] : 1945 80 From: Deric Smith PCP: Dr. Tonio Fajardo, DO Status:ADM IN Location: [place] [address] Reason for Visit Chief Complaint: SOB. Objective [...] 03/05/25 14:17 SB (Rec: 03/05/25 14:17 SB [id number]) Nutrition Malnutrition Evidence of Yes Malnutrition Exists [...] Patient alsosustained 11 beats of V. tach. radiation monitor reviewed. Still in A-fib/flutter with bradycardia. 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 ACS ruled out. 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 Repeat proBNP is elevated [...] conduction. Later on irregular variable conduction on pvc monitor 03/06: Discussed with the immigration officer. Metoprolol increased to 25 mg twice daily, Cardizem 60 mg Z2hcslau. If heart rate controlled, will switch to [...] pressure in the 90s. Discussed with the immigration officer. Advised to discontinue to discontinue metoprolol and [...] at the right lung base. Reading Location: [facility] Echocardiogram 03/04/25 20:08 Interpretation Summary Moderate [...] in right lung base aeration. Reading Location: [place] [address] Charges/Coding Addendum Addendum: Total time of the visit including total time spent in counseling or coordinationof care, (more than50% of the total time, spent in obtaining medical information from nurses and other ancillary care providers ,explaining to the patient about labs, imaging, diagnosis and management of active complexmedical conditions), multiple active cardiac issues, urinary retention discussion with cardiologistand clinical update given to patient's odhmgail-uw-kyv, review of labs and imaging is 35 minutes. Visit Charges Inpatient E&M: 80228 Subs Hosp L3 03/08/25 1040 Cosigner Signature (if applicable): CC: ~ Signed ADDENDUM by Dr. Deric Lantigua MD on 03/08/25 at 1334 Addendum The patient's son and ipbqgktc-ds-fmq came to visit him. They decided patient to be DNR CC arrest with no intubation CODE STATUS changed. Living will/advanced directive/end of life care: Patient does not have living will or advanced directive. He is next of kin is his son and hxgzxtjs-wb-xsk. After discussion of benefits/risks procedures involved with full code, DNR CC arrest and DNR CC, the patient and his mcrqpffr-jx-kmu he opted for DNR CC arrest with no intubation. Patient also said that he does not want pacemaker but his lxxijrkq-hl-pkd and son will discuss with him Patient does want artificial life support including intubation, tube feed, ventilator and/chest compression, central venous catheter, vasopressor and DC shock if needed Total time spent in nqgq-wf-odby encounter in discussion of advanced directive 17 minutes. 03/08/25 1334 Cosigner Signature (if applicable): cc: ~* Signed [facility]07-20-2025 Progress note Author Marjorie Green [facility] Note Date/Time March 08, 2025 8:51 am [facility] Medical Records Department [address] [place] [address] Progress Note - Cardiology 03/08/25 0848 MR#: [id number] Acct: [id number] Name: PEDRO HILLMAN Rep #:[id number] : 1945 80 From: Marjorie Green MD PCP: Dr. Tonio Fajardo, DO Status:ADM IN Location: [place] [address] Subjective Subjective Denies any complaints. Became bradycardic [...] Cosigner Signature (if applicable): CC: ~ Signed [facility] Work Phone: 1(306) 646-478907-20-2025 Progress note [facility] Medical Records Department [address] [place] [address] Progress Note - Cardiology 03/08/25 0848 MR#: [id number] Acct: [id number] Name: PEDRO HILLMAN Rep #:[id number] : 1945 80 From: Marjorie Green MD PCP: Dr. Tonio Fajardo, DO Status:ADM IN Location: [place] [address] Subjective Subjective Denies any complaints. Became bradycardic [...] Cosigner Signature (if applicable): CC: ~ Signed [facility]07-19-2025 Progress note Author Deric Lantigua [facility] Note Date/Time March 07, 2025 1:51 pm [facility] Medical Records Department [address] [place] [address] Progress Note - Hospitalist 03/07/25 1342 MR#: [id number] Acct: [id number] Name: PEDRO HILLMAN Nora Rep #:[id number] : 1945 80 From: Deric Smith PCP: Dr. Tonio Fajardo, DO Status:ADM IN Location: [place] [id number]- [id number] Reason for Visit Chief Complaint: SOB. [...] 03/05/25 14:17 SB (Rec: 03/05/25 14:17 SB [id number]) Nutrition Malnutrition Evidence of Yes Malnutrition Exists [...] low 108/34 but improved to 129 systolic. radiation monitor reviewed. Still in A-fib/flutter. 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 ACS ruled out. 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 Repeat proBNP is elevated [...] conduction. Later on irregular variable conduction on pvc monitor 03/06: Discussed with the immigration officer. Metoprolol increased to 25 mg twice daily, [...] at the right lung base. Reading Location: [facility] Echocardiogram 03/04/25 20:08 Interpretation Summary Moderate [...] in right lung base aeration. Reading Location: [place] [address] Charges/Coding Visit Charges Inpatient E&M: 13416 Subs Hosp L2 03/07/25 1351 <Electronically signed by Deric Lantigua MD> Cosigner Signature (if applicable): CC: ~ Signed [facility] Work Phone: 1(712) 110-639007-19-2025 Progress note [facility] Medical Records Department [address] [place] [address] Progress Note - Hospitalist 03/07/25 1342 MR#: [id number] Acct: [id number] Name: PEDRO HILLMAN Rep #:[id number] : 1945 80 From: Deric Smith PCP: Dr. Tonio Fajardo, DO Status:ADM IN Location: [place] [id number]- 1 Reason for Visit Chief Complaint: SOB. [...] 03/05/25 14:17 SB (Rec: 03/05/25 14:17 SB [id number]) Nutrition Malnutrition Evidence of Yes Malnutrition Exists [...] low 108/34 but improved to 129 systolic. radiation monitor reviewed. Still in A-fib/flutter. 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 ACS ruled out. 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 Repeat proBNP is elevated [...] conduction. Later on irregular variable conduction on pvc monitor 03/06: Discussed with the immigration officer. Metoprolol increased to 25 mg twice daily, Cardizem 60 mg [id number]. If heart rate controlled, will switch to [...] at the right lung base. Reading Location: [facility] Echocardiogram 03/04/25 20:08 Interpretation Summary Moderate [...] in right lung base aeration. Reading Location: [place] [address] Charges/Coding Visit Charges Inpatient E&M: 46116 Subs Hosp L2 03/07/25 1351 Cosigner Signature (if applicable): CC: ~ Signed [facility]07-18-2025 Progress note Author Deric Lantigua [facility] Note Date/Time March 06, 2025 3:46 pm [facility] Medical Records Department [address] [place] [address] Progress Note - Hospitalist 03/06/25 1540 MR#: [id number] Acct: [id number] Name: PEDRO HILLMAN Rep #:[id number] : 1945 80 From: Deric Smith PCP: Dr. Tonio Fajardo, DO Status:ADM IN Location: [place] [address] Reason for Visit Chief Complaint: SOB. Objective [...] 03/05/25 14:17 SB (Rec: 03/05/25 14:17 SB [id number]) Nutrition Malnutrition Evidence of Yes Malnutrition Exists [...] is improved. Still in A-fib/flutter with heart [id number]. Shortness of breath is better. 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 ACS ruled out. 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 Repeat proBNP is elevated [...] conduction. Later on irregular variable conduction on pvc monitor 03/06: Discussed with the immigration officer. Metoprolol increased to 25 mg twice daily, [...] at the right lung base. Reading Location: [facility] Echocardiogram 03/04/25 20:08 Interpretation Summary Moderate [...] in right lung base aeration. Reading Location: [place] [address] Charges/Coding Visit Charges Inpatient E&M: 13681 Subs Hosp L2 03/06/25 7055 <Electronically signed by Deric Lantigua MD> Cosigner Signature (if applicable): CC: ~ Signed [facility] Work Phone: 1(635) 624-396407-18-2025 Progress note [facility] Medical Records Department [address] [place] [address] Progress Note - Hospitalist 03/06/25 1540 MR#: [id number] Acct: [id number] Name: PEDRO HILLMAN Rep #:[id number] : 1945 80 From: Deric Smith PCP: Dr. Tonio Fajardo, DO Status:ADM IN Location: [place] [address] Reason for Visit Chief Complaint: SOB. Objective [...] 03/05/25 14:17 SB (Rec: 03/05/25 14:17 SB [id number]) Nutrition Malnutrition Evidence of Yes Malnutrition Exists [...] is improved. Still in A-fib/flutter with heart [id number]. Shortness of breath is better. 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 ACS ruled out. 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 Repeat proBNP is elevated [...] conduction. Later on irregular variable conduction on pvc monitor 03/06: Discussed with the immigration officer. Metoprolol increased to 25 mg twice daily, Cardizem 60 mg [id number]. If heart rate controlled, will switch to [...] at the right lung base. Reading Location: [facility] Echocardiogram 03/04/25 20:08 Interpretation Summary Moderate [...] in right lung base aeration. Reading Location: [place] [address] Charges/Coding Visit Charges Inpatient E&M: 22485 [facility] Hosp 03/06/25 1546 Cosigner Signature (if applicable): CC: ~ Signed [facility]07-18-2025 Consult note Author Marjorie Green [facility] Note Date/Time March 06, 2025 9:33 am [facility] Medical Records Department [address] [facility] [place] [address] Consultation - Cardiology 03/06/25925 MR#: [id number] Acct: [id number] Name: PEDRO HILLMAN Rep #:[id number] : 1945 80 From: Marjorie Green MD PCP: Dr. Tonio Fajardo, DO Status:[facility] Assessment & Plan Assessment/Plan (1) Atrial [...] his shortness of breath is much improved. [facility] Medical History (Updated 03/06/25 @ 09:[address] 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 Tonio Fajardo, DO~ Signed [facility] Work Phone: 1(241) 201-670807-18-2025 Consult note [facility] Medical Records Department [address] [place] [address] Consultation - Cardiology 03/06/25 0926 MR#: [id number] Acct: [id number] Name: PEDRO HILLMAN Rep #:[id number] : 1945 80 From: Marjorie Green MD PCP: Dr. Tonio Fajardo, DO Status:ADM IN Location: [place] [address] Assessment & Plan Assessment/Plan (1) Atrial flutter [...] his shortness of breath is much improved. [facility] Medical History (Updated 03/06/25 @ 09:[address] 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 Tonio Fajardo, DO~ Signed [facility]07-17-2025 Progress note Author Deric Lantigua [facility] Note Date/Time March 05, 2025 3:56 pm [facility] Medical Records Department [address] [place] [address] Progress Note - Hospitalist 03/05/25 0719 MR#: [id number] Acct: [id number] Name: PEDRO HILLMAN Rep #:[id number] : 1945 80 From: Deric Smith PCP: Dr. Tonio Fajardo DO Status:ADM IN Location: [place] [address] Reason for Visit Chief Complaint: SOB. Objective [...] 78.1 H, Lymph % (Auto) 10.1 L, Carlton % (Auto) 9.1, Eos % (Auto) 1.6, [...] Clarity Cloudy, Urine pH 6.5, Ur Specific Venus 1.010, Urine Protein 100 H, Urine Glucose [...] (Auto) 76.4 H, Lymph % (Auto) 9.5L, Carlton % (Auto) 11.4 H, Eos % (Auto) [...] at the right lung base. Reading Location: [facility] Chest X-Ray 03/05/25 04:30 IMPRESSION: Small interval improvement in right lung base aeration. 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 ACS ruled out. 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 Repeat proBNP is elevated [...] conduction. Later on irregular variable conduction on pvc monitor 3. CKD; stage IIIb with hyperkalemia, [...] Clarity Cloudy, Urine pH 6.5, Ur Specific Venus 1.010, Urine Protein 100 H, Urine Glucose [...] (Auto) 76.4 H, Lymph % (Auto) 9.5L, Carlton % (Auto) 11.4 H, Eos % (Auto) [...] at the right lung base. Reading Location: [facility] Echocardiogram 03/04/25 20:08 Interpretation Summary Moderate [...] in right lung base aeration. Reading Location: [place] [address] Charges/Coding Addendum Addendum: Total time of the [...] imagingis 35 minutes. Visit Charges Inpatient E&M: 75875 Subs Hosp L3 03/05/25 0558 <Electronically signed by Deric Lantigua MD> Cosigner Signature (if applicable): CC: ~ Signed [facility] Work Phone: 1(699) 753-612107-17-2025 Progress note [facility] Medical Records Department [address] [place] [address] Progress Note - Hospitalist 03/05/25 0719 MR#: [id number] Acct: [id number] Name: PEDRO HILLMAN Rep #:[id number] : 1945 80 From: Deric Smith PCP: Dr. Tonio Fajardo, DO Status:ADM IN Location: [place] [address] Reason for Visit Chief Complaint: SOB. Objective [...] 78.1 H, Lymph % (Auto) 10.1 L, Carlton % (Auto) 9.1, Eos % (Auto) 1.6, [...] Clarity Cloudy, Urine pH 6.5, Ur Specific Venus 1.010, Urine Protein 100 H, Urine Glucose [...] (Auto) 76.4 H, Lymph % (Auto) 9.5L, Carlton % (Auto) 11.4 H, Eos % (Auto) [...] at the right lung base. Reading Location: [facility] Chest X-Ray 03/05/25 04:30 IMPRESSION: Small interval improvement in right lung base aeration. 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 ACS ruled out. 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 Repeat proBNP is elevated [...] conduction. Later on irregular variable conduction on pvc monitor 3. CKD; stage IIIb with hyperkalemia, [...] Clarity Cloudy, Urine pH 6.5, Ur Specific Venus 1.010, Urine Protein 100 H, Urine Glucose [...] (Auto) 76.4 H, Lymph % (Auto) 9.5L, Carlton % (Auto) 11.4 H, Eos % (Auto) [...] at the right lung base. Reading Location: [facility] Echocardiogram 03/04/25 20:08 Interpretation Summary Moderate [...] in right lung base aeration. Reading Location: [place] [address] Charges/Coding Addendum Addendum: Total time of the [...] imagingis 35 minutes. Visit Charges Inpatient E&M: 05005 [facility] Hosp 03/05/25 7449 Cosigner Signature (if applicable): CC: ~ Signed [facility]07-17-2025 History and physical note Author Nicola Madison [facility] Note Date/Time March 05, 2025 6:22 am [facility] Medical Records Department [address] [place] [address] H&P Exam - Hospitalist 03/04/251921 MR#: [id number] Acct: [id number] Name: PEDRO HILLMAN Rep #:[id number] : 1945 80 From: Nicola Levy DO PCP: Dr. Tonio Fajardo, DO Status:ADM IN Location: [place] [id number] 1 HPI - General General Date of [...] of COVID-19 and OA who presents to [facility] ER complaining of SOB. Mr. Hillman [...] ~53% with moderate mitral annular calcification and kdyp-oy-rnmyavwq (~1-2+) mitral valve insufficiency with a pulmonary [...] is expected to extend beyond 2 midnights. [facility] Medical History Other persistent atrial fibrillation New onset atrial flutter COVID Wears hearing aid in both ears Former smoker Coronary artery disease Peripheral vascular occlusive disease BPH (benign prostatic hyperplasia) Chronic kidney disease, stage 3 Atherosclerosis of coronary artery of ho-chunk heart without angina pectoris Hyperlipidemia Lower extremity [...] 78.1 H, Lymph % (Auto) 10.1 L, Carlton % (Auto) 9.1, Eos % (Auto) 1.6, [...] at the right lung base. Reading Location: [facility] Assessment & Plan Assessment/Plan (1) CHF exacerbation: QUALIFIERS: Heart failure type: unspecified Qualified Code(s): I50.9 - Heart failure, unspecified (2) Atrial flutter with rapid ventricular response: (3) Chronic anticoagulation: (4) Elevated troponin: (5) Hyperkalemia: (6) Pleural effusion on right: (7) Acute cystitis with hematuria: (8) Atherosclerosis of coronary artery of ho-chunk heart without angina pectoris: QUALIFIERS: Coronary Disease-Associated Artery/Lesion type: nativeartery Qualified Code(s): I25.10 - Atherosclerotic heart disease of ho-chunk coronary artery without angina pectoris (9) Overweight [...] LVEF. Serialize troponin. Finally, we will consult [facility] see this patient on rounds [...] 75 minutes. Charges/Coding Visit Charges Inpatient E&M: 82537 Init Hosp L3 03/05/25 0636 <Electronically signed by Nicola Lindsey DO> Cosigner Signature (if applicable): CC: Dr. Nicola Lindsey DO; Dr. Tonio Fajardo DO~ Signed [facility] Work Phone: 1(882) 390-377907-17-2025 History and physical note [facility] Medical Records Department [address] [place] [address] H&P Exam - Hospitalist 03/04/251921 MR#: [id number] Acct: [id number] Name: PEDRO HILLMAN Rep #:[id number] : 1945 80 From: Nicola Levy DO PCP: Dr. Tonio Fajardo, DO Status:ADM IN Location: [facility] NQK427- 1 HPI - General General Date of [...] of COVID-19 and OA who presents to [facility] ERcomplaining of SOB. Mr. Hillman reports [...] ~53% with moderate mitral annular calcification and mbuf-ld-pyujfcoh (~1-2+) mitral valve insufficiency with a pulmonary [...] is expected to extend beyond 2 midnights. [facility] Medical History Other persistent atrial fibrillation New onset atrial flutter COVID Wears hearing aid in both ears Former smoker Coronary artery disease Peripheral vascular occlusive disease BPH (benign prostatic hyperplasia) Chronic kidney disease, stage 3 Atherosclerosis of coronary artery of ho-chunk heart without angina pectoris Hyperlipidemia Lower extremity [...] 78.1 H, Lymph % (Auto) 10.1 L, Carlton % (Auto) 9.1, Eos % (Auto) 1.6, [...] at the right lung base. [facility] Assessment & Plan Assessment/Plan (1) CHF exacerbation: QUALIFIERS: Heart failure type: unspecified Qualified Code(s): I50.9 - Heart failure, unspecified (2) Atrial flutter with rapid ventricular response: (3) Chronic anticoagulation: (4) Elevated troponin: (5) Hyperkalemia: (6) Pleural effusion on right: (7) Acute cystitis with hematuria: (8) Atherosclerosis of coronary artery of ho-chunk heart without angina pectoris: QUALIFIERS: Coronary Disease-Associated Artery/Lesion type: nativeartery Qualified Code(s): I25.10 - Atherosclerotic heart disease of ho-chunk coronary artery without angina pectoris (9) Overweight [...] LVEF. Serialize troponin. Finally, we will consult [facility] see this patient on rounds [...] 75 minutes. Charges/Coding Visit Charges Inpatient E&M: 05899 Init Hosp L3 03/05/25 0622 Cosigner Signature (if applicable): CC: Dr. Nicola Lindsey DO; Dr. Tonio Fajardo DO~ Signed [facility]07-17-2025 Radiology Diagnostic study note [facility] Imaging Services [address] [place] [address] Chest 1 View (Portable) MR#: [id number] Acct: [id number] Name: PEDRO HILLMAN Rep #: [id number] : 1945 M 80 From: Regi Espino MD PCP: Dr. Tonio Fajardo DO Status: ADM IN Study:Chest 1 View (Portable) Date of Exam: 03/05/25 Exam# [id number] Ordering Dr: Nicola Mukherjee DO PROCEDURE: CHEST [...] in right lung base aeration. Reading Location: [facility]- CC: Dr. Nicola Lindsey DO; Dr. Tonio Fajardo DO ~ Visual Manager: Signed [facility]07-16-2025 Evaluation note* Diagnosis Onset Date Resolution [...] 042024 7:57pm Atherosclerosis of coronary artery of ho-chunk heart without angina pectoris chronic March 04, 2025 7:57pm CHF exacerbation chronic February 7:57pm Hypertension chronic March 04 025 7:57pm [facility] Work Phone: 1(218) 780-148507-16-2025 Evaluation note* Diagnosis Onset Date Resolution Status [...] 042024 7:57pm Atherosclerosis of coronary artery of ho-chunk heart without angina pectoris chronic March 04, [...] by pass graft 2012March 17, 2025 12:51pm [facility] Work Phone: 1(143) 674-927207-16-2025 Evaluation note* Diagnosis Onset Date Resolution Status [...] 042024 7:57pm Atherosclerosis of coronary artery of ho-chunk heart without angina pectoris chronic March 04, [...] 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 March 17, 2025 12:51pm Elevated troponin acute April 05, 2025 7:55pm Hyperkalemia acute April 05, 2025 7:55pm Overweight (BMI 25.0-29.9) acute April 05, 2025 7:55pm Respiratory insufficiency acute April 05, 2025 7:55pm Acute on chronic diastolic congestive heart failure chronic April 05, 2025 7:55pm Chronic atrial fibrillation chronic April 05, 2025 7:55pm 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April 05 7:55pm [facility] Work Phone: 1(152) 319-859507-16-2025 Evaluation note* Diagnosis Onset Date Resolution Status Admit Date Acute cystitis with hematuria acute March 04, 2025 7:57pm Atrial flutter with rapid ventricular response acute March 04, 2025 7:57pm Chronic anticoagulation acute J shanad 2024 7:57pm Coronary artery disease acute J [...] 042024 7:57pm Atherosclerosis of coronary artery of ho-chunk heart without angina pectoris chronic March 04, [...] 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 March 17, 2025 12:51pm Acute cystitis [...] cardiac pacemaker acute April 10, 2025 11:14am [facility] Work Phone: 1(879) 341-693607-16-2025 Evaluation note* Diagnosis Onset Date Resolution Status [...] 042024 7:57pm Atherosclerosis of coronary artery of ho-chunk heart without angina pectoris chronic March 04, [...] 7:55pm 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 April 05 7:55pm Heart block AV [...] infection) resolv ed April 10, 2025 6:33pm [facility] Work Phone: 1(151) 488-701407-16-2025 Evaluation note* Diagnosis Onset Date Resolution Status [...] 2025 7:57pm Atherosclerosis of coronary artery of ho-chunk heart without angina pectoris chronic March 04, 2025 7:57pm CHF exacerbation chronic February 7:57pm Hypertension chronic March 04, 7:57pm Acute on chronic diastolic congestive heart failure resolved March 042024 7:57pm Hyperkalemia resolved March 04, 7:57pm Peripheral arterial disease inactive March 04, 2025 7:57pm Other persistent atrial fibrillation acute March 17, 2025 12:51pm Hyperlipidemia chronic March 17, 2025 12:51pm Hypertension chronic March 17, 025 12:51pm Peripheral vascular occlusiv e disease chronic March 17, 2025 12:51pm 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 March 17, 2025 12:51pm Acute cystitis without hematuria acu te April 05, 2025 7:55pm Chronic anticoagulation acute A ug2024 7:55pm Coronary artery disease acute A ugust [...] 7:55pm 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 April 05 7:55pm Acute on chronic [...] April 17 6:19pm Debility acute April 17, 2 025 6:19pm Pleural effusion acute March 212024 6:19pm Pneumonia acute April 17, 2 025 6:19pm Pneumothorax acute April 17, 2025 6:19pm Tachy-brittany syndrome acute Augu st 2024 6:19pm Type 2 diabetes mellitus wit h hyperglycemia acute April 17 6:19pm COPD (chronic obstructive pulmonary disease) chronic April 17, 2025 6:19pm Hyperlipidemia chronic March 6:19pm [facility] Work Phone: 1(648) 779-754707-16-2025 Evaluation note* Diagnosis Onset Date Resolution Status [...] 2025 7:57pm Atherosclerosis of coronary artery of [place] heart without angina pectoris chronic March 04, 2025 7:57pm CHF exacerbation chronic February 7:57pm Hypertension chronic March 04, 025 7:57pm Acute on chronic diastolic congestive heart failure resolved March 042024 7:57pm Hyperkalemia resolved March 04, 025 7:57pm Peripheral arterial disease inactive March 04, 2025 7:57pm Other persistent atrial fibrillation acute March 17, 2025 12:51pm Hyperlipidemia chronic March 17, 2025 12:51pm Hypertension chronic March 17, 025 12:51pm Peripheral vascular occlusiv e disease chronic March 17, 2025 12:51pm 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 March 17, 2025 12:51pm Acute cystitis without hematuria acute April 05 7:55pm Chronic anticoagulation acute A ugust 2024 [...] chronic April 05 7:55pm 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 April 05 7:55pm Acute on chronic diastolic congestive heart failure resolved April 05, 2025 7:55pm DARIUSZ (acute kidney injury) resolved April 05, 2025 7:55pm Hyperkalemia resolved April 05, 2025 7:55pm Heart block AV complete acute A ugust 2024 11:14am Presence of cardiac pacemaker acute April 10, 2025 11:14am Atrial fibrillation acute Augus t 2024 6:33pm BPH (benign prostatic hyperplasia) acute April 10 6:33pm Chronic kidney disease, stag e 3b acute April 10 6:33pm Debility acute April 10, 025 6:33pm History of lung cancer acute [place] 2024 6:33pm Pleural effusion on right acute April 10, 2025 6:33pm Type 2 diabetes mellitus wit h hyperglycemia acute April 10 6:33pm COPD (chronic obstructive pulmonary disease) chronic April 10, 2025 6:33pm Hyperlipidemia chronic March 6:33pm Acute heart failure with preserved ejection fraction (HFpEF) resolved April 10 6:33pm Acute respiratory failure wi th hypoxia resolved April 10 6:33pm DARIUSZ (acute kidney injury) resolved April 10, 2025 6:33pm Tachy-brittany syndrome resolved st 2024 6:33pm UTI (urinary tract infection) resolv ed April 10, 2025 6:33pm Atrial fibrillation acute Augus t 2024 6:19pm BPH (benign prostatic hyperplasia) acute April 17 6:19pm Debility acute April 17, 2 025 6:19pm Type 2 diabetes mellitus wit h hyperglycemia acute April 17 6:19pm COPD (chronic obstructive pulmonary disease) chronic April 17, 2025 6:19pm Hyperlipidemia chronic March 6:19pm Acute heart failure with preserved ejection fraction (HFpEF) resolved April 17 6:19pm Acute respiratory failure wi th hypoxia resolved April 17 6:19pm Pleural effusion resolved March 212024 6:19pm Pneumonia resolved April 17 025 6:19pm Pneumothorax resolved April 17, 2025 6:19pm Tachy-brittany syndrome resolved Augu st 2024 6:19pm Orthostatic hypotension acute S eptember 2024 1:48pm Syncope acute April 20, 2025 1:48pm [facility] Work Phone: 1(375) 186-911607-16-2025 Discharge summary Author Chris Ochoa [facility] Note Date/Time March 04, 2025 7:26 pm [facility] Medical Records Department [address] [place] [address] Emergency Department Summary 03/04/25 MR#: [id number] Acct: [id number] Name: PEDRO HILLMAN Rep #:[id number] : 1945 80 From: Chris Ochoa MD [...] stage 3 Atherosclerosis of coronary artery of [place] heart without angina pectoris Hyperlipidemia Lower extremity [...] signs. Back nontender. Movingall 4 extremities. 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 Calves nontender without edema or cords. [...] 78.1 H Lymph % (Auto) 10.1 L Carl[place] % (Auto) 9.1 Eos % (Auto) 1.6 [...] at the right lung base. Reading Location: [place] [address] Chest x-ray, 2 views, AP and lateral, [...] Chronic anticoagulation Disposition Disposition: Acute Care [facility] What to do if you have Problems For any increased pain, shortness of breath, bleeding, nausea or vomiting, chestpain, or any unexpected problems, contact your Primary Care Provider. Call [employer] [facility] ([phone]) or report to the closest Emergency Room. Call 911 if necessary. 03/04/251925 <Electronically signed by Chris Ochoa MD> Cosigner Signature (if applicable): CC: Dr. Tonio Fajardo, DO ~ Signed [facility] Work Phone: 1(396) 399-212307-16-2025 Discharge summary [facility] Medical Records Department [address] [place] [address] Emergency Department Summary 03/04/25 MR#: [id number] Acct: [id number] Name: PEDRO HILLMAN Rep #:[id number] : 1945 80 From: Chris Ochoa MD [...] stage 3 Atherosclerosis of coronary artery of [place] heart without angina pectoris Hyperlipidemia Lower extremity [...] signs. Back nontender. Movingall 4 extremities. 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 Calves nontender without edema or cords. [...] 78.1 H Lymph % (Auto) 10.1 L Carl[place] % (Auto) 9.1 Eos % (Auto) 1.6 [...] at the right lung base. Reading Location: [facility] Chest x-ray, 2 views, AP and lateral, [...] Chronic anticoagulation Disposition Disposition: Acute Care [facility] What to do if you have Problems For any increased pain, shortness of breath, bleeding, nausea or vomiting, chestpain, or any unexpected problems, contact your Primary Care Provider. Call [facility] ([phone]) or report tothe closest Emergency Room. Call 911 if necessary. 03/04/251925 Cosigner Signature (if applicable): CC: Dr. Tonio Fajardo, ~ Signed [facility]07-16-2025 Radiology Diagnostic study note [facility] Imaging Services [address] [place] [address] Chest PA and Lateral MR#: [id number] Acct: [id number] Name: PEDRO HILLMAN Rep #: [id number] : 1945 M 80 From: Tom Flores MD PCP: Dr. Tonio Fajardo DO Status: PRE ER Study:Chest PA and Lateral Date of Exam: 03/04/25 Exam# [id number] Ordering Dr: Camila Ochoa MD PROCEDURE: CHEST [...] at the right lung base. Reading Location: [place] [address] CC: Dr. Chrsi Ochoa MD; Dr. Tonio Fajardo DO ~ Visual Manager: Signed [facility]07-16-2025 Discharge summary Author Chris Ochoa [facility] Note Date/Time March 04, 2025 7:26 pm [facility] Medical Records Department [address] [place] [address] Emergency Department Summary 03/04/25 MR#: [id number] Acct: [id number] Name: PEDRO HILLMAN Rep #:[id number] : 1945 80 From: Chris Ochoa MD [...] stage 3 Atherosclerosis of coronary artery of [place] heart without angina pectoris Hyperlipidemia Lower extremity [...] signs. Back nontender. Movingall 4 extremities. 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 Calves nontender without edema or cords. [...] 78.1 H Lymph % (Auto) 10.1 L Carlton % (Auto) 9.1 Eos % (Auto) 1.6 [...] at the right lung base. [facility] Chest x-[facility], 2 views, AP and [...] Chronic anticoagulation Disposition Disposition: Acute Care [facility] What to do if you have Problems For any increased pain, shortness of breath, bleeding, nausea or vomiting, chestpain, or any unexpected problems, contact your Primary Care Provider. Call [facility] ([phone]) or report to the closest Emergency Room. Call 911 if necessary. 03/04/251925 <Electronically signed by Chris Ochoa MD> Cosigner Signature (if applicable): CC: Dr. Tonio Fajardo, DO ~ Signed [facility] Work Phone: 1(534) 964-705003-20-2025 Evaluation note* Diagnosis Onset Date Resolution Status [...] 2025 7:57pm Atherosclerosis of coronary artery of [place] heart without angina pectoris chronic March 04, 2025 7:57pm CHF exacerbation chronic February 7:57pm [facility] Work Phone: 1(495) 674-141203-13-2025 Radiology Diagnostic study note [facility] Imaging Services [address] [place] [id number] CT Chest AND Abd W/ Contrast MR#: [id number] Acct: [id number] Name: PEDRO HILLMAN Rep #: [id number] : 1945 M 79 From: Tom Flores MD PCP: Dr. Tonio Fajardo, DO Status: REG CLI Study:CT Chest AND Abd W/ Contrast Date of Ex am: 10/30/24 Exam# [id number] Ordering Dr: Frantz Zamora MD PROCEDURE: CT [...] use of iterative reconstruction technique). Reading Location: [id number] CC: Dr. Russ Zamora MD; Dr. Tonio Fajardo DO ~ Visual Manager: Signed [facility]02-28-2025 Procedure notey [facility] Pulmonary Services/Neurology [address] [place] [address] MR#: [id number] Acct: [id number] Name: PEDRO HILLMAN Rep #:[id number] : 1945 79 From: Tyrell Uriarte DO Referring Dr: Lorie Mart NP DERRICK ENGINEER-C Status: REG CLI Location: PSN Date: Sex: M C PSN 6 Minute Walk Test 6 Minute Walk Test 6 Minute Walk Test: 6 Minute Walk Test PSN:6-Minute Walk Test Start: 10/16/24 13:24 Freq: Status: Active Protocol: RESP.6MINW Document 10/16/24 13:24 [facility] (Rec: 10/16/24 13:34 [facility] [id number]) 6 Minute Walk Test Date Performed 10/16/24 Time Performed 12:30 Height 5 ft 6 in Weight: 174 lb Weight in Pounds 174.[address]: Lorie Mart DERRICK ENGINEER Assistive device Walker used: Pre-test Oxygen [...] ~ Date Dictated: 10/17/241003 Date Transcribed: 10/17/241003 Visual Manager: Dr. Tyrell Uriarte, DO Signed [facility]02-06-2025 Evaluation note* Diagnosis Onset Date Resolution [...] right lung chronic Marlon h 2024 2:10pm [facility] Work Phone: 1(560) 408-869702-06-2025 Evaluation note* Diagnosis Onset Date Resolution Status [...] right lung chronic Marlon h 2024 1:24pm [facility] Work Phone: 1(474) 528-954710-20-2023 Procedure [facility] 04-18-2023 Progress note Author Joaquim Suárez [facility] April 18, 2023 7:12pm Note Date/Time April 18, 2023 3: 56pm [facility] [address] [place] [address] Progress Note - Wound Care 04/18/23 1549 MR#: [id number] Acct: [id number] Name: PEDRO HILLMAN Rep #:[id number] : 1945 78 From: Joaquim Smith PM [...] Date Recorded By Document 04/02/23 11:24 PL [id number] 04/02/23 11:25 PL Document 04/18/23 13:24 [facility] [id number] 04/18/23 13:30 BM 04/02/23 04/18/23 11:24 13:24 - Today's Visit Information Type of service Follow-up Visit Follow-up Visit (Physician/MOVIE PROJECTIONIST (Physician/MOVIE PROJECTIONIST ) ) Arrival Mode Ambulatory,Cane Ambulatory,Cane Transfer [...] Recorded Date Recorded By Document 04/18/23 13:24 [facility] [id number] 04/18/23 13:30 [facility] 04/18/23 13:24 Wound Center Nurse 1 [...] Attached -Granulation Amt Large (67-100%) -Granulation Quality [place] -Slough/Fibrin No -Necrosis Amt None Present (0 [...] Recorded Date Recorded By Document 04/02/23 11:42 [id number] 04/02/23 11:53 Document 04/18/23 14:03 [id number] 04/18/23 14:04 04/02/23 04/18/23 11:42 14:03 Wound [...] Recorded Date Recorded By Document 04/02/23 11:54 [id number] 04/02/23 11:54 Document 04/18/23 14:24 RB [id number] 04/18/23 14:25 RB 04/02/23 04/18/23 11:54 14:24 [...] mellitus with diabetic polyneuropathy QUALIFIERS: Diabetes mellitus mcc insulin use: with dedicated intermodal truck driver use Qualified Code(s): E11.42 - Type 2 diabetes mellitus with diabetic polyneuropathy; Z79.4 - 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 Tonio Fajardo, DO Status:REG [...] 11:24 04/02/23 11:24 Charges/Coding Procedures Integumentary 111xxx-113xx: 07959 Mihaela subq tissue 20 sq cm/< Debridement [...] Date Recorded By Document 04/02/23 11:24 KIM [id number] 04/02/23 11:25 PL 04/02/23 11:24 - Today's Visit Information Type of service Follow-up Visit (Physician/MOVIE PROJECTIONIST ) Arrival Mode Ambulatory,Cane Transfer Assistance None [...] Recorded Date Recorded By Document 04/02/23 11:42 [id number] 04/02/23 11:53 04/02/23 11:42 Wound Center Nurse [...] Date Recorded By Document 04/02/23 11:54 DORA [id number] 04/02/23 11:54 DORA 04/02/23 11:54 Wound Care [...] that the wound center will have a specialty finishing utility person, will have the patient see him for further evaluation and treatment. Follow up two weeks. Call or come in sooner if develop any questions or concerns. 04/07/231 <Electronically signed by Bonny Glynn NP DERRICK ENGINEER-C> Cosigner Signature (if applicable): CC: ~ Signed [facility] Work Phone: 1(703) 199-881707-17-2023 Progress [facility] March 05, 2023 1:06pm Note Date/Time March 05, 2023 12:2 9pm [facility] [address] [place] [address] Progress Note - Wound Care 03/05/23 1226 MR#: [id number] Acct: [id number] Name: PEDRO HILLMAN Rep #:[id number] : 1945 78 From: Bonny garcia NP DERRICK ENGINEER-C PCP: Dr. Tonio Fajardo, DO Status:REG [...] Method Room Air Charges/Coding Procedures Integumentary 111xxx-113xx: 79847 Mihaela subq tissue 20 sq cm/< Debridement [...] Recorded Date Recorded By Document 02/19/23 13:34 [id number] 02/19/23 13:36 Document 03/05/23 11:26 JACOB [id number] 03/05/23 11:29 KW 02/19/23 03/05/23 13:34 11:26 - Today's Visit Information Type of service Follow-up Visit Follow-up Visit (Physician/MOVIE PROJECTIONIST (Physician/MOVIE PROJECTIONIST ) ) Arrival Mode Ambulatory Ambulatory,Cane Accompanied [...] Recorded Date Recorded By Document 02/19/23 13:34 [id number] 02/19/23 13:36 Document 03/05/23 11:26 [id number] 03/05/23 11:29 KW 02/19/23 03/05/23 13:34 11:26 [...] Large (67-100%) Small (1-33%) -Granulation Quality [place] -Slough/Fibrin No -Necrosis Amt Small (1-33%) -Structure [...] Recorded Date Recorded By Document 02/19/23 13:37 [id number] 02/19/23 13:39 Document 03/05/23 11:37 [id number] 03/05/23 11:46 02/19/23 03/05/23 13:37 11:37 Wound [...] Date Recorded By Document 02/19/23 13:43 MW [id number] 02/19/23 13:44 MW Document 03/05/23 11:53 BM [id number] 03/05/23 11:55 BMF 02/19/23 03/05/23 13:43 11:53 [...] if develop any questions or concerns. 03/05/23 7847 <Electronically signed by Bonny Glynn NP DERRICK ENGINEER-C> Cosigner Signature (if applicable): CC: ~ Signed [facility] Work Phone: 1(323) 586-482407-03-2023 Progress note Author Bonny Glynn [facility] February 19, 2023 2:23pm Note Date/Time February 19, 2023 2:16p m [facility] [address] [place] [address] Progress Note - Wound Care 02/19/23 1412 MR#: [id number] Acct: [id number] Name: PEDRO HILLMAN Rep #:[id number] : 1945 78 From: Bonny garcia DERRICK ENGINEER DERRICK ENGINEER-C PCP: Dr. Tonio Fajardo, DO Status:REG [...] 13:34 02/19/23 13:34 Charges/Coding Procedures Integumentary 111xxx-113xx: 51026 Mihaela subq tissue 20 sq cm/< Debridement [...] Date Recorded By Document 02/19/23 13:34 DORA [id number] 02/19/23 13:36 DORA 02/19/23 13:34 URBAN - Today's Visit Information Type of service Follow-up Visit (Physician/MOVIE PROJECTIONIST ) Arrival Mode Ambulatory Patient Requires Transmission-Based [...] Date Recorded By Document 02/19/23 13:34 DORA [id number] 02/19/23 13:36 DORA 02/19/23 13:34 Wound Center [...] Date Recorded By Document 02/19/23 13:37 DORA [id number] 02/19/23 13:39 DORA 02/19/23 13:37 Wound Center [...] Date Recorded By Document 02/19/23 13:43 MW [id number] 02/19/23 13:44 MW 02/19/23 13:43 Wound Care [...] 1423 <Electronically signed by Bonny Glynn NP DERRICK ENGINEER-C> Cosigner Signature (if applicable): CC: ~ Signed [facility] Work Phone: 1(729) 470-502306-19-2023 Progress note Author Bonnyparris Glynn [facility] February 05, 2023 2:37pm Note Date/Time February 05, 2023 1:59 pm [facility] [address] [place] [address] Progress Note - Wound Care 02/05/23 1359 MR#: [id number] Acct: [id number] Name: PEDRO HILLMAN Rep #:[id number] : 1945 78 From: Bonny garcia NP DERRICK ENGINEER-C PCP: Dr. Tonio Fajardo, DO Status:REG RCR Location: History of Present Illness Date of Service: 02/05/23 Chief Complaint: right medial foot ulcer History of Wound: This 78-year-old male returns to the wound healing clinic for reoccurrence of a right medial foot ulcer. Wound care has been Moistened Cass covered with [place] SAP dressing. Patient diabetic neuropathic. Patient dealing [...] Method Room Air Charges/Coding Procedures Integumentary 111xxx-113xx: 22211 Mihaela subq tissue 20 sq cm/< Debridement [...] Start: 01/22/23 13:42 Freq: Status: Active Protocol: URBAN.ARCHIE Activity Type Activity Date Activity User E-sign Co-sign Detail Recorded Client Recorded Date Recorded By Document 01/22/23 13:45 DL [id number] 01/22/23 13:48 DL Document 02/05/23 13:10 [facility] [id number] 02/05/23 13:15 BM 01/22/23 02/05/23 13:45 13:10 - Today's Visit Information Type of service Follow-up Visit Follow-up Visit (Physician/MOVIE PROJECTIONIST (Physician/MOVIE PROJECTIONIST ) ) Arrival Mode Ambulatory Ambulatory,Cane Transfer [...] Date Recorded By Document 01/22/23 13:45 DL [id number] 01/22/23 13:48 DL Document 02/05/23 13:10 [facility] [id number] 02/05/23 13:15 [facility] 01/22/23 02/05/23 13:45 13:10 Wound Center [...] Present (0 Large (67-100%) %) -Granulation Quality [place] -Slough/Fibrin Yes -Necrosis Amt Small (1-33%) Small [...] Recorded Date Recorded By Document 01/22/23 14:22 [id number] 01/22/23 14:23 DORA 01/22/23 14:22 Wound Center [...] Date Recorded By Document 01/22/23 14:30 DL [id number] 01/22/23 14:31 DL Document 02/05/23 13:49 BMF [id number] 02/05/23 13:49 BMF 01/22/23 02/05/23 14:30 13:49 [...] 1437 <Electronically signed by Bonny Glynn NP DERRICK ENGINEER-C> Cosigner Signature (if applicable): CC: ~ Signed [facility] Work Phone: 1(818) 755-772906-05-2023 Progress note Author Bonny [facility] January 22, 2023 3:47pm Note Date/Time January 22, 2023 3:31p m [facility] [address] [place] [address] Progress Note - Wound Care 01/22/23 1529 MR#: [id number] Acct: [id number] Name: PEDRO HILLMAN Rep #:[id number] : 1945 78 From: Bonny garcia NP DERRICK ENGINEER-C PCP: Dr. Tonio Fajardo, DO Status:REG RCR Location: History of Present Illness Date of Service: 01/22/23 Chief Complaint: right medial foot ulcer History of Wound: This 78-year-old male returns to the wound healing clinic for reoccurrence of a right medial foot ulcer. Wound care has been Moistened Cass covered with [place] SAP dressing. Patient diabetic neuropathic. Patient dealing [...] 13:45 01/22/23 13:45 Charges/Coding Procedures Integumentary 111xxx-113xx: 25196 Mihaela subq tissue 20 sq cm/< Debridement [...] Date Recorded By Document 01/22/23 13:45 DL [id number] 01/22/23 13:48 DL 01/22/23 13:45 - Today's Visit Information Type of service Follow-up Visit (Physician/MOVIE PROJECTIONIST ) Arrival Mode Ambulatory Transfer Assistance None [...] Date Recorded By Document 01/22/23 13:45 DL [id number] 01/22/23 13:48 DL 01/22/23 13:45 Wound Center [...] N/A -Texture (Anna-wound Skin Appearance) Scarring -Moisture (Anan-wound Skin Appearance) Maceration -Color (Anna-wound Skin Appearance) [...] Recorded Date Recorded By Document 01/22/23 14:22 [id number] 01/22/23 14:23 01/22/23 14:22 Wound Center Nurse [...] Recorded Date Recorded By Document 01/22/23 14:30 [id number] 01/22/23 14:31 DL 01/22/23 14:30 Wound Care [...] if develop any questions or concerns. 01/22/23 9050 <Electronically signed by Bonny Glynn NP DERRICK ENGINEER-C> Cosigner Signature (if applicable): CC: ~ Signed [facility] Work Phone: 1(546) 159-246205-22-2023 Progress note Author Bonny Glynn [facility] January 08, 2023 2:17pm Note Date/Time January 08, 2023 2:10p m [facility] [address] [place] [address] Progress Note - Wound Care 01/08/23 1407 MR#: [id number] Acct: [id number] Name: PEDRO HILLMAN Rep #:[id number] : 1945 77 From: Bonny garcia DERRICK ENGINEER DERRICK ENGINEER-C PCP: Dr. Tonio Fajardo, DO Status:REG RCR Location: History of Present Illness Date of Service: 01/08/23 Chief Complaint: right medial foot ulcer History of Wound: This 77-year-old male returns to the wound healing clinic for reoccurrence of a right medial foot ulcer. Wound care has been Moistened Cass covered with [place] SAP dressing. Patient diabetic neuropathic. Patient dealing [...] 14:53 01/08/23 13:37 Charges/Coding Procedures Integumentary 111xxx-113xx: 78794 Mihaela subq tissue 20 sq cm/< Debridement [...] Date Recorded By Document 12/18/22 13:20 PL [id number] 12/18/22 13:27 PL Document 12/25/22 14:53 JF [id number] 12/25/22 14:54 JF Document 01/08/23 13:37 AK [id number] 01/08/23 13:39 AK 12/18/22 12/25/22 01/08/23 13:20 14:53 13:37 - Today's Visit Information Type of service Follow-up Visit Follow-up Visit Follow-up Visit (Physician/MOVIE PROJECTIONIST (Physician/MOVIE PROJECTIONIST (Physician/MOVIE PROJECTIONIST ) ) ) Arrival Mode Ambulatory Ambulatory [...] Date Recorded By Document 12/18/22 13:20 PL [id number] 12/18/22 13:27 PL Document 12/25/22 14:53 [id number] 12/25/22 14:54 JF Document 01/08/23 13:37 AK [id number] 01/08/23 13:39 AK 12/18/22 12/25/22 01/08/23 13:20 [...] (34-66%) Small (1-33%) Medium (34-66%) -Granulation Quality [place] Pale -Slough/Fibrin No Yes Yes -Necrosis Amt [...] Recorded Date Recorded By Document 12/18/22 13:51 [id number] 12/18/22 13:53 Document 12/25/22 15:00 [id number] 12/25/22 15:10 Document 01/08/23 14:01 [id number] 01/08/23 14:02 12/18/22 12/25/22 01/08/23 13:51 15:00 [...] Date Recorded By Document 12/18/22 14:07 PL [id number] 12/18/22 14:07 PL Document 12/25/22 15:20 DL [id number] 12/25/22 15:20 DL 12/18/22 12/25/22 14:07 15:20 [...] 1417 <Electronically signed by Bonny Glynn NP DERRICK ENGINEER-C> Cosigner Signature (if applicable): CC: ~ Signed [facility] Work Phone: 1(134) 343-357505-14-[address] Ochoa [facility] December 31, 2022 12:58am Note Date/Time December 30, 2022 11:08 pm [facility] Medical Records Department [address] [place] [address] Emergency Department Summary 12/30/22 MR#: [id number] Acct: [id number] Name: PEDRO HILLMAN Rep #:[id number] : 1945 77 From: Chris Ochoa MD [...] Prior similar symptoms: Yes Recent Illness/Hospitalization: No [facility] Medical History Anemia Atherosclerosis of coronary artery of [place] heart without angina pectoris BPH (benign prostatic [...] extremities. Nontender. No edema. No cellulitis. 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 Normal dorsi plantarflexion. Neurologically is awake [...] 83.3 H Lymph % (Auto) 6.4 L [place] % (Auto) 9.1 Eos % (Auto) 0.2 [...] Color Urine Clarity Urine pH Ur Specific Venus Urine Protein Urine Glucose (UA) Urine Ketones Urine Occult Blood Urine Nitrite Urine Bilirubin Urine Urobilinogen Ur Leukocyte Esterase Urine RBC Urine WBC Ur Squamous Epith Cells Urine Bacteria Urine Mucus 12/30/22 12/30/22 22:50 23:59 WBC RBC Hgb Hct MCV MCH MCHC RDW Std Deviation RDW Coeff of Reggie Plt Count MPV Immature Gran % (Auto) Neut % (Auto) Lymph % (Auto) [place] % (Auto) Eos % (Auto) Baso % [...] Clarity Clear Urine pH 7.0 Ur Specific Venus 1.005 Urine Protein 100 H Urine Glucose [...] your Primary Care Provider. Call [facility] ([phone]) or report to the closest Emergency Room. Call 911 if necessary. 12/31/22 0058 <Electronically signed by Chris Ochoa MD> Cosigner Signature (if applicable): CC: Dr. Tonio Fajardo DO ~ Signed [facility] Work Phone: 1(971) 652-294205-08-2023 Progress note Author Bonny Glynn [facility] December 25, 2022 3:36pm Note Date/Time December 25, 2022 3:36pm [facility] [address] [place] [address] Progress Note - Wound Care 12/25/22 1531 MR#: [id number] Acct: [id number] Name: PEDRO HILLMAN Rep #:[id number] : 1945 77 From: Bonny Gillis DERRICK ENGINEER DERRICK ENGINEER-C PCP: Dr. Tonio Fajardo, Status:REG RCR Location: History of Present Illness Date of Service: 12/25/22 Chief Complaint: right medial foot ulcer History of Wound: This 77-year-old male returns to the wound healing clinic for reoccurrence of a right medial foot ulcer. Wound care has been Moistened Cass covered with [place] SAP dressing. Patient diabetic neuropathic. Patient dealing [...] 14:53 12/25/22 14:53 Charges/Coding Procedures Integumentary 111xxx-113xx: 66805 Mihaela subq tissue 20 sq cm/< Debridement [...] Date Recorded By Document 12/18/22 13:20 KIM [id number] 12/18/22 13:27 PL Document 12/25/22 14:53 DORA [id number] 12/25/22 14:54 DORA 12/18/22 12/25/22 13:20 14:53 - Today's Visit Information Type of service Follow-up Visit Follow-up Visit (Physician/MOVIE PROJECTIONIST (Physician/MOVIE PROJECTIONIST ) ) Arrival Mode Ambulatory Ambulatory Transfer [...] Date Recorded By Document 12/18/22 13:20 PL [id number] 12/18/22 13:27 PL Document 12/25/22 14:53 [id number] 12/25/22 14:54 12/18/22 12/25/22 13:20 14:53 Wound [...] Amt Medium (34-66%) Small (1-33%) -Granulation Quality [place] -Slough/Fibrin No Yes -Necrosis Amt Medium (34-66%) [...] Recorded Date Recorded By Document 12/18/22 13:51 JF [id number] 12/18/22 13:53 Document 12/25/22 15:00 [id number] 12/25/22 15:10 12/18/22 12/25/22 13:51 15:00 Wound [...] Date Recorded By Document 12/18/22 14:07 PL [id number] 12/18/22 14:07 PL Document 12/25/22 15:20 DL [id number] 12/25/22 15:20 DL 12/18/22 12/25/22 14:07 15:20 [...] if develop any questions or concerns. 12/25/22 1866 <Electronically signed by Bonny Glynn NP DERRICK ENGINEER-C> Cosigner Signature (if applicable): CC: ~ Signed [facility] Work Phone: 1(794) 198-650705-01-2023 Progress note Author Bonny Glynn [facility] December 18, 2022 2:23pm Note Date/Time December 18, 2022 2:23pm [facility] [address] [place] [address] Progress Note - Wound Care 12/18/22 1419 MR#: [id number] Acct: [id number] Name: PEDRO HILLMAN Rep #:[id number] : 1945 77 From: Bonny garcia NP DERRICK ENGINEER-C PCP: Dr. Tonio Fajardo, DO Status:REG RCR Location: History of Present Illness Date of Service: 12/18/22 Chief Complaint: right medial foot ulcer History of Wound: This 77-year-old male returns to the wound healing clinic for reoccurrence of a right medial foot ulcer. Wound care has been Moistened Cass covered with [place] SAP dressing. Patient diabetic neuropathic. Patient dealing [...] 13:20 12/18/22 13:20 Charges/Coding Procedures Integumentary 111xxx-113xx: 20628 Mihaela subq tissue 20 sq cm/< Debridement [...] Date Recorded By Document 12/18/22 13:20 KIM [id number] 12/18/22 13:27 PL 12/18/22 13:20 WC - Today's Visit Information Type of service Follow-up Visit (Physician/MOVIE PROJECTIONIST ) Arrival Mode Ambulatory Transfer Assistance None [...] Date Recorded By Document 12/18/22 13:20 PL [id number] 12/18/22 13:27 PL 12/18/22 13:20 Wound Center [...] Serosanguineous -Granulation Amt Medium (34-66%) -Granulation Quality [place] -Slough/Fibrin No -Necrosis Amt Medium (34-66%) -Necrotic [...] Recorded Date Recorded By Document 12/18/22 13:51 [id number] 12/18/22 13:53 DORA 12/18/22 13:51 Wound Center [...] Date Recorded By Document 12/18/22 14:07 PL [id number] 12/18/22 14:07 PL 12/18/22 14:07 Wound Care [...] 1423 <Electronically signed by Bonny Glynn NP DERRICK ENGINEER-C> Cosigner Signature (if applicable): CC: ~ Signed [facility] Work Phone: 1(135) 502-282404-27-2023 Progress note Author Bonny Glynn [facility] December 14, 2022 2:56pm Note Date/Time December 11, 2022 3:2 7pm [facility] [address] [place] [address] Progress Note - Wound Care 12/11/22 1527 MR#: [id number] Acct: [id number] Name: PEDRO HILLMAN Rep #:[id number] : 1945 77 From: Bonny garcia DERRICK ENGINEER DERRICK ENGINEER-C PCP: Dr. Tonio Fajardo, DO Status:REG RCR Location: History of Present Illness Date of Service: 12/11/22 Chief Complaint: right medial foot ulcer History of Wound: This 77-year-old male returns to the wound healing clinic for reoccurrence of a right medial foot ulcer. Wound care has been Moistened Cass covered with [place] SAP dressing. Patient diabetic neuropathic. Patient dealing [...] Method Room Air Charges/Coding Procedures Integumentary 111xxx-113xx: 76657 Mihaela subq tissue 20 sq cm/< Debridement [...] Date Recorded By Document 11/20/22 14:43 DL [id number] 11/20/22 14:49 DL Document 11/27/22 14:25 [facility] [id number] 11/27/22 14:27 [facility] Document 12/06/22 11:35 DL [id number] 12/06/22 11:39 DL Document 12/11/22 13:12 [facility] [id number] 12/11/22 13:21 [facility] 11/20/22 11/27/22 12/06/22 14:43 14:25 11:35 - Today's Visit Information Type of service Follow-up Visit Follow-up Visit (Physician/MOVIE PROJECTIONIST (Physician/MOVIE PROJECTIONIST ) ) Arrival Mode Ambulatory,Cane Ambulatory Transfer [...] Visit Information Type of service Follow-up Visit (Physician/MOVIE PROJECTIONIST ) Arrival Mode Ambulatory,Cane Transfer Assistance None [...] Date Recorded By Document 11/20/22 14:43 DL [id number] 11/20/22 14:49 DL Document 11/27/22 14:25 BMF [id number] 11/27/22 14:27 BMF Document 12/06/22 11:35 DL [id number] 12/06/22 11:39 DL Document 12/11/22 13:12 BMF [id number] 12/11/22 13:21 BMF 11/20/22 11/27/22 12/06/22 14:43 [...] Amt Small (1-33%) Small (1-33%) -Granulation Quality [place] Pale -Slough/Fibrin -Necrosis Amt Small (1-33%) Small [...] Date Recorded By Document 11/20/22 15:00 JF [id number] 11/20/22 15:09 JF Edit Result 11/20/22 15:00 JF (1) [id number] 11/20/22 15:18 JF Edit Result 11/20/22 15:00 JF (2) [id number] 11/20/22 15:20 JF Document 11/27/22 14:50 JF [id number] 11/27/22 15:02 JF Document 12/06/22 11:46 JF [id number] 12/06/22 11:57 Document 12/11/22 13:30 [id number] 12/11/22 13:33 (1) #9 Right Inferior Hallux [...] => 08/20/27 - Product Lot Number => [id number] - Percent Used => 100 - Lot number of Saline Used => [id number] 11/20/22 11/27/22 12/06/22 15:00 14:50 11:46 Wound [...] Date 08/20/27 08/20/27 09/20/27 -Product Lot Number [id number] 015 -Percent Used 100 100 100 -Lot number of Saline Used [id number] -Bleeding Controlled with Pressure Pressure Pressure -Treatment [...] Date Recorded By Document 11/20/22 15:35 DL [id number] 11/20/22 15:36 DL Document 11/27/22 15:02 [id number] 11/27/22 15:03 Document 12/06/22 11:57 JF [id number] 12/06/22 11:58 JF Document 12/11/22 13:57 DL [id number] 12/11/22 13:58 DL 11/20/22 11/27/22 12/06/22 15:35 [...] if develop any questions or concerns. 12/14/22 8929 <Electronically signed by Bonny Glynn NP DERRICK ENGINEER-C> Cosigner Signature (if applicable): CC: ~ Signed [facility] Work Phone: 1(553) 134-792004-19-2023 Progress note Author Bonny Glynn [facility] December 06, 2022 12:09pm Note Date/Time December 06, 2022 12: 09[facility] [address] [place] [address] Progress Note - Wound Care 12/06/22 1205 MR#: [id number] Acct: [id number] Name: PEDRO HILLMAN Rep #:[id number] : 1945 77 From: Bonny garcia DERRICK ENGINEER DERRICK ENGINEER-C PCP: Dr. Tonio Fajardo, DO Status:REG RCR Location: History of Present Illness Date of Service: 12/06/22 Chief Complaint: right medial foot ulcer History of Wound: This 77-year-old male returns to the wound healing clinic for reoccurrence of a right medial foot ulcer. Wound care has been Moistened Cass covered with [place] SAP dressing. Patient diabetic neuropathic. Patient dealing [...] 11:35 12/06/22 11:35 Charges/Coding Procedures Integumentary 150xxx-152xx: 11759 Skin sub graft face/nk/hf/g Debridement Note Debridement [...] Date Recorded By Document 11/20/22 14:43 DL [id number] 11/20/22 14:49 DL Document 11/27/22 14:25 BMF [id number] 11/27/22 14:27 BMF Document 12/06/22 11:35 DL [id number] 12/06/22 11:39 DL 11/20/22 11/27/22 12/06/22 14:43 14:25 11:35 WC - Today's Visit Information Type of service Follow-up Visit Follow-up Visit (Physician/MOVIE PROJECTIONIST (Physician/MOVIE PROJECTIONIST ) ) Arrival Mode Ambulatory,Cane Ambulatory Transfer [...] Date Recorded By Document 11/20/22 14:43 DL [id number] 11/20/22 14:49 DL Document 11/27/22 14:25 F [id number] 11/27/22 14:27 BMF Document 12/06/22 11:35 DL [id number] 12/06/22 11:39 DL 11/20/22 11/27/22 12/06/22 14:43 [...] Amt Small (1-33%) Small (1-33%) -Granulation Quality [place] Pale -Necrosis Amt Small (1-33%) Small (1-33%) [...] Recorded Date Recorded By Document 11/20/22 15:00 [id number] 11/20/22 15:09 JF Edit Result 11/20/22 15:00 JF (1) [id number] 11/20/22 15:18 JF Edit Result 11/20/22 15:00 JF (2) [id number] 11/20/22 15:20 Document 11/27/22 14:50 [id number] 11/27/22 15:02 Document 12/06/22 11:46 [id number] 12/06/22 11:57 (1) #9 Right Inferior Hallux [...] => 08/20/27 - Product Lot Number => [id number] - Percent Used => 100 - Lot number of Saline Used => [id number] 11/20/22 11/27/22 12/06/22 15:00 14:50 11:46 Wound [...] Date 08/20/27 08/20/27 09/20/27 -Product Lot Number [id number] 015 -Percent Used 100 100 100 -Lot number of Saline Used [id number] -Bleeding Controlled with Pressure Pressure Pressure -Treatment [...] Date Recorded By Document 11/20/22 15:35 DL [id number] 11/20/22 15:36 DL Document 11/27/22 15:02 [id number] 11/27/22 15:03 JF Document 12/06/22 11:57 [id number] 12/06/22 11:58 11/20/22 11/27/22 12/06/22 15:35 15:02 [...] if develop any questions or concerns. 12/06/22 3848 <Electronically signed by Bonny Glynn NP DERRICK ENGINEER-C> Cosigner Signature (if applicable): CC: ~ Signed [facility] Work Phone: 1(280) 944-262804-11-2023 Progress note Author Bonny Glynn [facility] November 28, 2022 5:24pm Note Date/Time November 27, 2022 3:1 4pm [facility] [address] [place] [address] Progress Note - Wound Care 11/27/22 1513 MR#: [id number] Acct: [id number] Name: PEDRO HILLMAN Rep #:[id number] : 1945 77 From: Bonny garcia NP DERRICK ENGINEER-C PCP: Dr. Tonio Fajardo, DO Status:REG RCR Location: History of Present Illness Date of Service: 11/27/22 Chief Complaint: right medial foot ulcer History of Wound: This 77-year-old male returns to the wound healing clinic for reoccurrence of a right medial foot ulcer. Wound care has been Moistened Cass covered with [place] SAP dressing. Patient diabetic neuropathic. Patient dealing [...] 14:43 11/27/22 14:25 Charges/Coding Procedures Integumentary 150xxx-152xx: 25856 Skin sub graft face/nk/hf/g Debridement Note Debridement [...] Start: 11/20/22 14:43 Freq: Status: Active Protocol: .ARCHIE Activity Type Activity Date Activity User E-sign Co-sign Detail Recorded Client Recorded Date Recorded By Document 11/20/22 14:43 [id number] 11/20/22 14:49 DL Document 11/27/22 14:25 [facility] [id number] 11/27/22 14:27 [facility] 11/20/22 11/27/22 14:43 14:25 - Today's Visit Information Type of service Follow-up Visit Follow-up Visit (Physician/MOVIE PROJECTIONIST (Physician/MOVIE PROJECTIONIST ) ) Arrival Mode Ambulatory,Cane Ambulatory Transfer [...] Date Recorded By Document 11/20/22 14:43 DL [id number] 11/20/22 14:49 DL Document 11/27/22 14:25 [facility] [id number] 11/27/22 14:27 [facility] 11/20/22 11/27/22 14:43 14:25 Wound Center [...] Thickened -Granulation Amt Small (1-33%) -Granulation Quality [place] -Necrosis Amt Small (1-33%) -Necrotic Tissue Type [...] Recorded Date Recorded By Document 11/20/22 15:00 [id number] 11/20/22 15:09 JF Edit Result 11/20/22 15:00 JF (1) [id number] 11/20/22 15:18 JF Edit Result 11/20/22 15:00 JF (2) [id number] 11/20/22 15:20 JF Document 11/27/22 14:50 JF [id number] 11/27/22 15:02 JF (1) #9 Right Inferior [...] => 08/20/27 - Product Lot Number => [id number] - Percent Used => 100 - Lot number of Saline Used => [id number] 11/20/22 11/27/22 15:00 14:50 Wound Center Nurse [...] -Expiration Date 08/20/27 08/20/27 -Product Lot Number [id number] -Percent Used 100 100 -Lot number of Saline Used [id number] -Bleeding Controlled with Pressure Pressure -Treatment Response [...] Date Recorded By Document 11/20/22 15:35 DL [id number] 11/20/22 15:36 DL Document 11/27/22 15:02 [id number] 11/27/22 15:03 DORA 11/20/22 11/27/22 15:35 15:02 [...] 1724 <Electronically signed by Bonny Glynn NP DERRICK ENGINEER-C> Cosigner Signature (if applicable): CC: ~ Signed [facility] Work Phone: 1(770) 519-346004-10-2023 Progress note Author Bonny Glynn [facility] November 26, 2022 10:29pm Note Date/Time November 20, 2022 4:18 pm [facility] [address] [place] [address] Progress Note - Wound Care 11/20/22 1618 MR#: [id number] Acct: [id number] Name: PEDRO HILLMAN Rep #:[id number] : 1945 77 From: Bonny garcia NP DERRICK ENGINEER-C PCP: Dr. Tonio Fajardo, DO Status:REG R Location: History of Present Illness Date of Service: 11/20/22 Chief Complaint: right medial foot ulcer History of Wound: This 77-year-old male returns to the wound healing clinic for reoccurrence of a right medial foot ulcer. Wound care has been Moistened Cass covered with [place] SAP dressing. Patient diabetic neuropathic. Patient dealing [...] 14:43 11/20/22 14:43 Charges/Coding Procedures Integumentary 150xxx-152xx: 71293 Skin sub graft face/nk/hf/g Debridement Note Debridement [...] Date Recorded By Document 11/20/22 14:43 DL [id number] 11/20/22 14:49 DL 11/20/22 14:43 - Today's Visit Information Type of service Follow-up Visit (Physician/MOVIE PROJECTIONIST ) Arrival Mode Ambulatory,Cane Transfer Assistance None [...] Date Recorded By Document 11/20/22 14:43 DL [id number] 11/20/22 14:49 DL 11/20/22 14:43 Wound Center Nurse 1 #9 Right Inferior Hallux -Current Size (cm) - Length 0.2 -Current Size (cm) - Width 0.3 -Current Size (cm) - Depth 0.2 -Total Square Cm 0.06 -Photo Taken No -Exudate Amt Small -Exudate Type Serosanguineous -Wound Margin Thickened -Granulation Amt Small (1-33%) -Granulation Quality [place] -Necrosis Amt Small (1-33%) -Necrotic Tissue Type [...] Date Recorded By Document 11/20/22 15:00 JF [id number] 11/20/22 15:09 JF Edit Result 11/20/22 15:00 JF (1) [id number] 11/20/22 15:18 JF Edit Result 11/20/22 15:00 JF (2) [id number] 11/20/22 15:20 JF (1) #9 Right Inferior [...] => 08/20/27 - Product Lot Number => [id number] - Percent Used => 100 - Lot number of Saline Used => [id number] 11/20/22 15:00 Wound Center Nurse 2 -Time [...] Disc -Expiration Date 08/20/27 -Product Lot Number [id number] -Percent Used 100 -Lot number of Saline Used [id number] -Bleeding Controlled with Pressure -Treatment Response Procedure [...] Date Recorded By Document 11/20/22 15:35 DL [id number] 11/20/22 15:36 DL 11/20/22 15:35 Wound Care [...] 11/26/222228 <Electronically signed by Bonny Glynn NP DERRICK ENGINEER-C> Cosigner Signature (if applicable): CC: ~ Signed [facility] Work Phone: 1(920) 686-447302-21-2023 Progress note Author Bonny Renard [facility] October 10, 2022 3:29pm Note Date/Time October 09, 2022 4:10pm [facility] [address] [place] [address] Progress Note - Wound Care 10/09/22 1609 MR#: [id number] Acct: [id number] Name: PEDRO HILLMAN Rep #:[id number] : 1945 77 From: Bonny garcia NP DERRICK ENGINEER-C PCP: Dr. Tonio Fajardo, DO Status:REG R Location: History of Present Illness Date of Service: 10/09/22 Chief Complaint: right foot ulcer History of Wound: This 77-year-old male returns to the wound healing clinic for reoccurrence of a right medial foot ulcer. Wound care has been Moistened Cass covered with [place] SAP dressing. Patient diabetic neuropathic. Patient dealing [...] Method Room Air Charges/Coding Procedures Integumentary 150xxx-152xx: 33578 Skin sub graft face/nk/hf/g Debridement Note Debridement [...] Recorded Date Recorded By Document 09/25/22 14:25 [facility] [id number] 09/25/22 14:32 BM Document 10/02/22 13:28 ML [id number] 10/02/22 13:32 ML Document 10/09/22 12:59 DL [id number] 10/09/22 13:04 DL 09/25/22 10/02/22 10/09/22 14:25 13:28 12:59 - Today's Visit Information Type of service Follow-up Visit Follow-up Visit Follow-up Visit (Physician/MOVIE PROJECTIONIST (Physician/MOVIE PROJECTIONIST (Physician/MOVIE PROJECTIONIST ) ) ) Arrival Mode Ambulatory,Cane Cane [...] Date Recorded By Document 09/25/22 14:25 BMF [id number] 09/25/22 14:32 BMF Document 10/02/22 13:28 ML [id number] 10/02/22 13:32 ML Document 10/09/22 12:59 DL [id number] 10/09/22 13:04 DL 09/25/22 10/02/22 10/09/22 14:25 [...] (0 Large (67-100%) %) -Granulation Quality [place] -Slough/Fibrin Yes Yes -Necrosis Amt Small (1-33%) [...] Recorded Date Recorded By Document 09/25/22 14:42 [id number] 09/25/22 14:51 Document 10/02/22 14:14 [id number] 10/02/22 14:17 Document 10/09/22 13:17 [id number] 10/09/22 13:26 09/25/22 10/02/22 10/09/22 14:42 14:14 [...] Date 06/20/27 05/20/27 06/20/27 -Product Lot Number [id number] 018 026 -Percent Used 100 100 100 -Lot number of Saline Used [id number] -Bleeding Controlled with Pressure Pressure Pressure -Treatment [...] Recorded Date Recorded By Document 09/25/22 14:52 DOAR [id number] 09/25/22 14:53 Document 10/02/22 14:18 [id number] 10/02/22 14:19 09/25/22 10/02/22 14:52 14:18 Wound [...] positive for Staphylococcus epidermidis 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 I spoke with his PCP, Dr Fajardo, who was made aware of the results and he said he would treat him from these results. Follow up one week. 10/10/22 6445 <Electronically signed by Bonny Glynn NP DERRICK ENGINEERAlexC> Cosigner Signature (if applicable): CC: ~ Signed [facility] Work Phone: 1(487) 544-621302-14-2023 Progress note Author Bonny Glynn [facility] October 03, 2022 4:51pm Note Date/Time September 26, 2022 1 :17pm [facility] [address] [place] [address] Progress Note - Wound Care 09/25/22 1501 MR#: [id number] Acct: [id number] Name: PEDRO HILLMAN Rep #:[id number] : 1945 77 From: Bonny garcia NP DERRICK ENGINEER-C PCP: Dr. Tonio Fajardo, DO Status:REG RCR Location: ADDENDUM by DERRICK ENGINEER-C Bonny Glynn on 10/03/22 at 1651 Addendum [place] [address] Procedures Integumentary 150xxx-152xx: 84767 Skin sub graft face/nk/hf/g 10/03/22 1651<Electronically signed by Bonny Glynn NP DERRICK ENGINEER-C> Cosigner Signature (if applicable): cc: ~* Signed History of Present Illness Date of Service: 09/25/22 Chief Complaint: right foot ulcer History of Wound: This 77-year-old male returns to the wound healing clinic for reoccurrence of a right medial foot ulcer. Wound care has been Moistened Cass covered with [place] SAP dressing. Patient diabetic neuropathic. Patient dealing [...] Method Room Air Charges/Coding Procedures Integumentary 150xxx-152xx: 94113 Skin sub graft trnk/arm/leg Debridement Note Debridement [...] Recorded Date Recorded By Document 09/25/22 14:25 [facility] [id number] 09/25/22 14:32 [facility] 09/25/22 14:25 URBAN - Today's Visit Information Type of service Follow-up Visit (Physician/MOVIE PROJECTIONIST ) Arrival Mode Ambulatory,Cane Transfer Assistance None [...] Recorded Date Recorded By Document 09/25/22 14:25 [facility] [id number] 09/25/22 14:32 [facility] 09/25/22 14:25 Wound Center Nurse 1 [...] Recorded Date Recorded By Document 09/25/22 14:42 [id number] 09/25/22 14:51 09/25/22 14:42 Wound Center Nurse [...] Disc -Expiration Date 06/20/27 -Product Lot Number [id number] -Percent Used 100 -Lot number of Saline Used [id number] -Bleeding Controlled with Pressure -Treatment Response Procedure [...] Recorded Date Recorded By Document 09/25/22 14:52 [id number] 09/25/22 14:53 09/25/22 14:52 Wound Care Center [...] 1317 <Electronically signed by Bonny Glynn NP DERRICK ENGINEER-C> Cosigner Signature (if applicable): CC: ~ Signed [facility] Work Phone: 1(602) 516-281202-14-2023 Progress note Author Bonnyparris Glynn [facility] October 03, 2022 4:49pm Note Date/Time October 02, 2022 2:57pm [facility] [address] [place] [address] Progress Note - Wound Care 10/02/22 1457 MR#: [id number] Acct: [id number] Name: PEDRO HILLMAN Rep #:[id number] : 1945 77 From: Bonny garcia NP DERRICK ENGINEER-C PCP: Dr. Tonio Fajardo, DO Status:REG RCR Location: History of Present Illness Date of Service: 10/02/22 Chief Complaint: right foot ulcer History of Wound: This 77-year-old male returns to the wound healing clinic for reoccurrence of a right medial foot ulcer. Wound care has been Moistened Cass covered with [place] SAP dressing. Patient diabetic neuropathic. Patient dealing [...] Charges/Coding Visit Charges Office Visits / Consults: 74102 OV L3 Est (25 modifier) Procedures Integumentary 150xxx-152xx: 02939 Skin sub graft face/nk/hf/g Physical Exam Const [...] Date Recorded By Document 09/25/22 14:25 BMF [id number] 09/25/22 14:32 BMF Document 10/02/22 13:28 ML [id number] 10/02/22 13:32 ML 09/25/22 10/02/22 14:25 13:28 URBAN - Today's Visit Information Type of service Follow-up Visit Follow-up Visit (Physician/MOVIE PROJECTIONIST (Physician/MOVIE PROJECTIONIST ) ) Arrival Mode Ambulatory,Cane Cane Transfer [...] Date Recorded By Document 09/25/22 14:25 BMF [id number] 09/25/22 14:32 BMF Document 10/02/22 13:28 ML [id number] 10/02/22 13:32 ML 09/25/22 10/02/22 14:25 13:28 [...] Recorded Date Recorded By Document 09/25/22 14:42 [id number] 09/25/22 14:51 Document 10/02/22 14:14 [id number] 10/02/22 14:17 09/25/22 10/02/22 14:42 14:14 Wound [...] -Expiration Date 06/20/27 05/20/27 -Product Lot Number [id number] -Percent Used 100 100 -Lot number of Saline Used [id number] -Bleeding Controlled with Pressure Pressure -Treatment Response [...] Recorded Date Recorded By Document 09/25/22 14:52 [id number] 09/25/22 14:53 Document 10/02/22 14:18 [id number] 10/02/22 14:19 09/25/22 10/02/22 14:52 14:18 Wound [...] they should go to the ED. 10/03/22 6046 <Electronically signed by Bonny Glynn NP DERRICK ENGINEER-C> Cosigner Signature (if applicable): CC: ~ Signed [facility] Work Phone: 1(414) 912-450801-10-2023 Progress note Author Bonny Glynn [facility] August 29, 2022 3:36pm Note Date/Time August 29, 2022 2 :32pm [facility] [address] [place] [address] Progress Note - Wound Care 08/29/22 1429 MR#: [id number] Acct: [id number] Name: PEDRO HILLMAN Rep #:[id number] : 1945 77 From: Bonny garcia DERRICK ENGINEER DERRICK ENGINEER-C PCP: Dr. Tonio Fajardo, DO Status:REG RCR Location: History of Present Illness Date of Service: 08/29/22 Chief Complaint: right foot ulcer History of Wound: This 77-year-old male returns to the wound healing clinic for reoccurrence of a right medial foot ulcer. Wound care has been Moistened Cass covered with [place] SAP dressing. Patient diabetic neuropathic. Patient dealing [...] Method Room Air Charges/Coding Procedures Integumentary 111xxx-113xx: 51323 Mihaela subq tissue 20 sq cm/< Debridement [...] Recorded Date Recorded By Document 08/29/22 13:17 [facility] [id number] 08/29/22 13:22 [facility] 08/29/22 13:17 - Today's Visit Information Type of service Follow-up Visit (Physician/MOVIE PROJECTIONIST ) Arrival Mode Ambulatory,Cane Transfer Assistance None [...] Recorded Date Recorded By Document 08/29/22 13:17 [facility] [id number] 08/29/22 13:22 [facility] 08/29/22 13:17 Wound Center Nurse 1 [...] Recorded Date Recorded By Document 08/29/22 13:35 [id number] 08/29/22 13:40 DORA 08/29/22 13:35 Wound Center [...] Date Recorded By Document 08/29/22 13:47 DL [id number] 08/29/22 13:47 DL 08/29/22 13:47 Wound Care [...] Silvercel as the primary dressing covered with [place] SAP (secondarydressing) daily after washing foot with [...] 1536 <Electronically signed by Bonny Glynn NP DERRICK ENGINEER-C> Cosigner Signature (if applicable): CC: ~ Signed [facility] Work Phone: [phone] 858-897412-16-2022 Miscellaneous Notes* Telephone Encounter - Liseth Ortiz Ma - 08/04/2022 9:59 AM EST Pt PCP outside [facility]. Call to pt and notified him of Providers message. Pt states that he did talk tohim. FYI. Liseth Ortiz Ma * Telephone Encounter - Steven Rodriguez APRN.SHANI - 07/28/2022 1:43 PM EST In reviewing patient's chart I do not see that he has had any follow up done in regards to his actionable chest xray finding. I left a message on patient's voicemail for him to call back and advise. Steven Rodriguez APRN.SHANI documented in [facility] encounterC[facility] Miscellaneous Notes* Telephone Encounter - Jenny Mock - 04/08/2022 2:56 PM EDT Notified pt of results, daughter will call to get information on restrictions. Jenny Mock * Telephone Encounter - Jenny Mock - 04/08/2022 9:18 AM EDT left message on machine to give call back, different number from pharmacy. [phone]. Jenny Mock * Telephone Encounter - Jenny Mock - 04/07/2022 5:48 PM EDT Unable to reach patient. Mailbox full/Mailbox not set up/ Number incorrect. Please try again later. Jenny Mock * Telephone Encounter - Sigrid Monroe LPN - 04/06/2022 6:48 PM EDT Still unable to reach patient and spare person is spouse with same number.Sigrid Monroe [...] if severe. documented in this encounterC[facility]08-17-2022 NoteHNO ID: [id number] Author: Steven Rodriguez APRN.MOVIE PROJECTIONIST Service: ? Author Type: Nurse Practitioner Type: [...] - COVID WITH FLUA+B, ROUTINE Steven Rodriguez APRN.[facility]08-17-2022 NoteHNO ID: [id number] Author: RT Jose Eduardo(R) Service: Nuclear Medicine [...] RT Jose Eduardo(R) April 05, 2022 1:55 [facility]08-17-2022 Influenza virus A and B RNA and SARS-CoV-2 (COVID-19) N gene panel BRYAN+probe (Resp)COVID 19 RESULT: SARS-CoV-2 (Agent of COVID-19) Detected by RT-PCR or equivalent method. anatoly [id number][employer] (YASMEEN)_EUA This test was developed and its performance characteristics determined by [facility] [place]. This test has been authorized by FDA under an Emergency Use Authorization (EUA). This test has been validated in accordance with the FDA's Guidance Document Policy for DiagnosticsTesting in Laboratories Certified to Perform High Complexity Testing under CLIA prior to Emergency use Authorization for Coronavirus Disease 2019 during the Public Health Emergency issued on October 18, 2019. Test performed by [facility], [facility] [place], [address] [place] [address]. INFLUENZA A PCR: Negative for Influenza A by RT-PCR INFLUENZA B PCR: Negative for Influenza B by RT-PCRThe Christ HospitalComment on above: Performed By: #### [id number] #### [facility] CLIA [id number] [address] [place] [address] STATES OF [id number] Miscellaneous Notes* Telephone Encounter - Steven Rodriguez APRN.CNP - 04/05/2022 2:58 PM EDT Radiology report faxed to patient's PCP Dr. Tonio Fajardo at [phone]. Confirmation of fax received. Patient was advised to call Dr. Fajardo today for a follow up appointment. Steven Rodriguez APRN.CNP documented in this encounterC[facility]08-17-2022 Instructions* Patient Instructions* Steven Rodriguez APRN.CNP [...] - COVID WITH FLUA+B, ROUTINE Steven Rodriguez APRN.MOVIE PROJECTIONIST documented in this encounterC[facility]08-17-2022 History of Present illness Narrative* Steven Rodriguez APRN.MOVIE PROJECTIONIST - 04/05/2022 2:03 PM EDT Subjective HPI [...] - COVID WITH FLUA+B, ROUTINE Steven Rodriguez APRN.MOVIE PROJECTIONIST documented in this encounterC[facility]08-17-2022 History of Present illness Narrative* Yuliana [...] 1:55 PM documented in this encounterCleveland Clinic Lutheran HospitalConsult note Author Mala Sterling [facility] Note Date/Time March 09, 2025 2:58 pm [facility] Medical Records Department [address] [place] [address] Counseling Note - Pharmacy 03/09/25 1457 MR#: [id number] Acct: [id number] Name: PEDRO HILLMAN Rep #:[id number] : 1945 80 From: Mala Sterling PCP: Dr. Tonio Fajardo, DO Status:ADM IN Y [facility] [place] [facility] Rec Counseling Pharmacy Service has performed [...] Signature (if applicable): Date CC: ~ Signed [facility] Work Phone: Discharge summary Author Casper Larsonrus [facility] Note Date/Time April 19, 2025 10 :43am [facility] Medical Records Department [address] [place] [address] Emergency Department Summary 04/19/25 MR#: [id number] Acct: [id number] Name: PEDRO HILLMAN Nora Rep #:[id number] : 1945 80 From: Casper Pyle PCP: Dr. Tonio Fajardo, DO Status:REG ER Location: ED HPI History of Present Illness Chief Complaint: [facility] Medical History Presence of cardiac pacemaker Peripheral arterial disease Other persistent atrial fibrillation New onset atrial flutter COVID Wears hearing aid in both ears Former smoker Coronary artery disease Peripheral vascular occlusive disease BPH (benign prostatic hyperplasia) Chronic kidney disease, stage 3 Atherosclerosis of coronary artery of [place] heart without angina pectoris Hyperlipidemia Lower extremity [...] hr (Mucinex) #20 tabs OXYGEN - Supplemental ([facility] 04/09/25 Unknown History INFORMATIONAL USE ONLY) aspirin [...] Notes his pacemaker was placed recently at [facility]. Denies any pain over pacemaker site. [...] MEDICAL DECISION MAKING: Chief Complaint: please see HPI External records reviewed: Pacemaker was placed here with [facility] on 04/09/[address] Hsu Reviewed prior [...] - Noted patient safe to stay at [facility]. States he should be able to [...] to PCU This note was generated with [employer] LX Therapiesation software. It may contain incorrectwords, spelling, and [...] 75.0 H Lymph % (Auto) 9.1 L Carlton % (Auto) 11.3 H Eos % (Auto) [...] CHF compared to x-ray 04/12/2025. Reading Location: [facility] Discharge Plan Triage Chief Complaint: Syncope ED [...] Qty: 60 0RF (DME) OXYGEN - Supplemental ([facility] INFORMATIONAL USE ONLY) Gas See Rx Instructions .ROUTE Patient Comments: 2 lpm at rest, 3 lpm on exertion, 2 lpm at HS DME company: [employer] Rx Instructions: As directed ipratropium-albuterol 0.5 mg-3 [...] DO [Primary Care Provider] - Print Language: Martiniquais What to do if you have Problems For any increased pain, shortness of breath, bleeding, nausea or vomiting, chestpain, or any unexpected problems, contact your Primary Care Provider. Call [facility] ([phone]) or report to the closest Emergency Room. Call 911 if necessary. 04/19/25 1043 <Electronically signed by Casper Iniguez DO> Cosigner Signature (if applicable): CC: Dr. Tonio Fajardo DO ~ Signed [facility] Work Phone: Discharge summary Author Tonio Mccallum [facility] Note Date/Time April 23, 2025 5:03pm [facility] Medical Records Department [address] [facility] [place] [address] Transfer to [facility] MR#: [id number] Acct: [id number] Name: PEDRO HILLMAN Rep #:[id number] : 1945 80 From: Tonio Mccallum DO PCP: Dr. Tonio Fajardo, Status:ADM IN Certification of patient admission REQUIRED AT TIME OF ADMISSION. I CERTIFY THAT POST-HOSPITAL ECF SERVICES ARE REQUIRED TO BE GIVEN ON AN IN-PATIENT BASIS BECAUSE OF THE ABOVE NAMED PATIENT'S NEED FOR [facility] CARE ON A CONTINUING BASIS FOR THE CONDITION(S) FOR WHICH HE/SHE WAS RECEIVING IN-PATIENT HOSPITAL SERVICES PRIOR TO HIS/HER TRANSFER TO THE [facility]. 04/23/25 1703<Electronically signed by Tonio Mccallum DO> Diet Diet Order/Speech Therapy: INPATIENT Hospital Diet / Speech Therapy Order(s) 04/20/25 14:16 Diet: Consistent Carb - Calorie Controlled Food consistency:: Regular Liquid Consistency:: Regular/Thin How many daily calories?: 1800 calorie Routine Orders/Code Status Code Status: Full Code DC O2, CPAP, BIPAP needs Home O2 Discharge instructions: Yes Type of respiratory needs?: Oxygen Oxygen frequency: Continuous Continuous oxygen liters per minute: 2 L Wound(s) Left Chest: Wound Type: Surgical Incision Therapies Weight Bearing: Full weight bearing Physical Therapy: Eval and Treat Occupational Therapy: Eval and Treat Problem/Diagnosis (1) Orthostatic hypotension: Status: Acute Code(s): I95.1 - Orthostatic hypotension Plan 1. Syncopal episode with positive orthostatics secondary to hypovolemia- patientwill be given IV fluids and reevaluated tomorrow, PT and OT will continue to work with patient, patient is now on 10 mg midodrine 3 times daily #2 chronic hypoxic respiratory failure-patient remains on nasal cannula oxygen at rest and with exertion #3 chronic obstructive pulmonary disease-continue aerosol treatments as needed, DuoNeb aerosols scheduled #4 type 2 diabetes-blood sugars will be monitored, sliding scale insulin will beadministered as needed, patient is on basal insulin #5 paroxysmal atrial fibs-patient is on Eliquis and rate control medications #6 coronary artery disease-patient is on Plavix and metoprolol #7 chronic kidney disease stage IIIb secondary to type 2 diabetes-complicates care, management, recovery, and prognosis #8 chronic moderate protein and caloric malnutrition-in the context of chronic disease related to inadequate energy/oral intake as evidenced by 5% unintentional weight loss times the past 1 to 2 months, p.o. eating less than 75% of estimated nutritional needs x 2 months-patient's diet was adjusted to an 1800-calorie carbohydrate diet and 128 mL of Glucerna shake 3 times a day will be given to the patient with med Pass. Nutritional services is participating inhis care Total clinical time spent by myself addressing the patient's medical issues, reviewing all of his data, and collaborating with the patient's care team: 35 minutes Allergies/Procedures Done in Hospital Allergies ibuprofen Allergy (Severe, Verified 04/19/25 08:24) Facial swelling (angioedema) Procedures: None Type of Care/Length of Stay Estimated LOS: Convalescent Care Less Than 30 days Type of Care Needed: Skilled Rehab Potential: Good Prognosis: Good Additional Orders/Day of Discharge H&P will serve as current which was dated: 04/19/25 Day of Discharge: 04/23/25 Dietary and Speech Recommendations Dietitian Recommendations/Changes: Will adjust diet to 1800 calorie/consistent carbohydrate. Will add 120mL glucerna shake 3 times per day w/ medpass. Trend weight and need for additional ONS. Discharge Plan Admission Admit Date/Time: 04/20/25 13:48 Primary Reason for Your Visit: syncope, orthostatic hypotension Attending Provider: Tonio Mccallum Primary Care Provider: Tonio Fajardo Consulting Providers: Kwaku Narayanan Instructions Additional Instructions / Restrictions: Monitor blood pressure closely, it may be necessary to cut back or discontinue midodrine and/or Florinef Discharge Orders/Prescriptions Prescriptions: New acetaminophen 325 mg Tablet 650 mg PO Q6H PRN PRN (Reason: Pain 1-10 Or Fever>100.7) Qty: 0 0RF albuterol sulfate 2.5 mg /3 mL (0.083 %) Solution For Nebulization 2.5 mg inhalation Q4H PRN (Reason: shortness of breath or wheezing) Qty: 0 0RF midodrine 5 mg Tablet 10 mg PO TIDCM Qty: 0 0RF fludrocortisone 0.1 mg Tablet 0.1 mg PO BID Qty: 0 0RF insulin lispro [Humalog KwikPen Insulin] 100 unit/mL Insulin Pen See Protocol subcut ACHS Qty: 0 0RF Protocol: 3. Sliding Scale Insulin Med Dosing Condition: 150-189 mg/dl = 1 unit Condition: 190-229 mg/dl = 2 units Condition: 230-269 mg/dl = 3 units Condition: 270-309 mg/dl = 4 units Condition: 310-349 mg/dl = 5 units Condition: 350-399 mg/dl = 6 units Condition: 400-449 mg/dl = 7 units Condition: Greater than 449 call physician Protocol Text: Suggested for: - Patients on Total Daily Insulin Dose of 37-55 units - Obese, infected, or steroid patients MEDIUM DOSING ALGORITHIM Glucerna 1.2 Gonzalo 0.06-1.2 gram-kcal/mL Liquid 120 ml PO TIDCM Qty: 0 0RF insulin glargine-yfgn 100 unit/mL (3 mL) Insulin Pen 20 unit subcut QHS Qty: 0 0RF Continued multivitamin [Daily Multi-Vitamin] Tablet 1 tab PO DAILY pravastatin 20 mg tablet 20 mg PO DAILY docusate sodium [Colace] 100 mg capsule 100 mg PO DAILY PRN Eliquis 5 mg Tablet 2.5 mg PO BID 30 Days Qty: 30 3RF tamsulosin 0.4 mg Capsule 0.4 mg PO DAILY@1730 30 Days Qty: 30 2RF clopidogrel 75 mg tablet 75 mg PO DAILY (DME) OXYGEN - Supplemental ([facility] INFORMATIONAL USE ONLY) Gas See Rx Instructions .ROUTE Patient Comments: 2 lpm at rest, 3 lpm on exertion, 2 lpm at HS DME company: [email or web address] Rx Instructions: As directed ipratropium-albuterol 0.5 mg-3 mg(2.5 mg base)/3 mL solution for nebulization 3 ml inhalation Q8H metoprolol succinate 25 mg tablet extended release 24 hr 12.5 mg PO BID Qty: 90 3RF Discontinued cranberry 500 mg capsule 500 mg PO [...] 50 mg Tablet 50 mg PO DAILY insulin glargine [Lantus Solostar U-100 Insulin] 100 unit/mL (3 mL) insulin pen 30 unit subcut QHS guaifenesin [Mucinex] 600 mg tablet extended release 12hr 1,200 mg PO BID Qty: 20 0RF furosemide [Lasix] 40 mg tablet 40 mg PO DAILY Qty: 60 0RF Eucerin Cream 1 applic topical BID aspirin 81 mg tablet,chewable 1 tab PO DAILY Tradjenta 5 mg tablet 5 mg PO DAILY Referrals / Follow Up: Tonio Fajardo DO [Primary Care Provider] - Disposition Disposition (needs filled in before D/C Order can be placed): [facility] 04/23/25 1703 <Electronically signed by Tonio Mccallum DO> Cosigner Signature (if applicable): CC: Dr. Kwaku Narayanan, DO; Dr. 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 Venous insufficiency chronic Ulcer of right foot with fat layer exposed resolved [facility] Work Phone: Evaluation note* Diagnosis [...] right foot with fat layer exposed resolved [facility] Work Phone: Evaluation note* Diagnosis [...] right foot with fat layer exposed resolved [facility] Work Phone: Evaluation note* Diagnosis [...] 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 [facility] Work Phone: Evaluation note* Diagnosis [...] right foot with fat layer exposed resolved [facility] Work Phone: Evaluation note* Diagnosis Burning with urination- Primary Dysuria Acute cough Suspected COVID-19 virus infection documented [facility] encounter [facility] Diagnosis Onset Date Resolution Status [...] acute Nicotine dependence, cigarettes, in remission acute [facility] Work Phone: Evaluation note* Diagnosis [...] right foot with fat layer exposed resolved [facility] Work Phone: Evaluation note* Diagnosis [...] right foot with fat layer exposed resolved [facility] Work Phone: Evaluation note* Diagnosis [...] of upper lobe of right lung acute [facility] Work Phone: Evaluation note* Diagnosis [...] of upper lobe of right lung acute [facility] Work Phone: Evaluation note* Diagnosis [...] of upper lobe of right lung acute [facility] Work Phone: Evaluation note* Diagnosis [...] 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 [facility] Work Phone: Evaluation note* Diagnosis [...] right foot with fat layer exposed chronic [facility] Work Phone: Evaluation note* Diagnosis [...] right foot with fat layer exposed chronic [facility] Work Phone: Evaluation note* Diagnosis [...] layer exposed chronic Shortness of breath chronic [facility] Work Phone: Evaluation note* Diagnosis [...] of upper lobe of right lung chronic [facility] Work Phone: Evaluation note* Diagnosis [...] of upper lobe of right lung chronic [facility] Work Phone: Evaluation note* Diagnosis [...] right foot with fat layer exposed chronic [facility] Work Phone: Evaluation note* Diagnosis [...] right foot with fat layer exposed chronic [facility] Work Phone: Evaluation note* Diagnosis [...] right foot with fat layer exposed chronic [facility] Work Phone: Evaluation note* Diagnosis [...] right foot with fat layer exposed chronic [facility] Work Phone: Evaluation note* Diagnosis [...] right foot with fat layer exposed chronic [facility] Work Phone: Evaluation note* Diagnosis [...] right foot with fat layer exposed resolved [facility] Work Phone: Evaluation note* Diagnosis [...] right foot with fat layer exposed chronic [facility] Work Phone: Evaluation note* Diagnosis [...] of upper lobe of right lung chronic [facility] Work Phone: Evaluation note* Diagnosis Onset Date Resolution Status Irregular heart rate acute COPD (chronic obstructive pulmonary disease) chronic 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 Plenty of fluids and rest today do not get dehydrated. Return if you are feeling a lot worse or too weak to get around her house. Follow-up with your doctor in the next several days to ensure you are improving. [facility] Work Phone: Hospital Discharge instructions Additional Instructions 1. Keep your postoperative dressing clean dry and intact 2. Continue strict glycemic control. 3. Partial weightbearing to heel with surgical shoe, use walker or crutches 4. Reach out to Dr. Suárez with any questions or concerns and follow-up in 1 week in clinic. 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 03/09March 17, 2025 12: 51pm Reason for [...] 2025 7:57pm Atherosclerosis of coronary artery of [place] heart without angina pectoris March 04, 2025 [...] 15, 2025 4:56 pm 6 M FU/S/P [facility] 03/09March 17, 2025 12: 51pm atrial fibrillation [...] 15, 2025 4:56 pm 6 M FU/S/P [facility] 03/09March 17, 2025 12: 51pm atrial fibrillation [...] 2025 7:57pm Atherosclerosis of coronary artery of [place] heart without angina pectoris March 04, 2025 7:57pm CHF exacerbation March 04, 2025 7:57 pm Hypertension March 04, 2025 7:57 pm Peripheral arterial disease March 04 025 7:57pm Other persistent atrial fibrillation Lev [...] 15, 2025 4:56 pm 6 M FU/S/P [facility] 03/09March 17, 2025 12: 51pm atrial fibrillation [...] 2025 7:57pm Atherosclerosis of coronary artery of [place] heart without angina pectoris March 04, 2025 [...] 15, 2025 4:56 pm 6 M FU/S/P [facility] 03/09March 17, 2025 12: 51pm atrial fibrillation [...] 15, 2025 4:56 pm 6 M FU/S/P [facility] 03/09March 17, 2025 12: 51pm atrial fibrillation [...] 2025 7:57pm Atherosclerosis of coronary artery of [place] heart without angina pectoris March 04, 2025 [...] 7:55pm Presence of aortocoronary bypass graft A [facility] 2024 7:55pm Heart block AV complete April [...] 15, 2025 4:56 pm 6 M FU/S/P [facility] 03/09March 17, 2025 12: 51pm atrial fibrillation [...] 15, 2025 4:56 pm 6 M FU/S/P [facility] 03/09March 17, 2025 12: 51pm atrial fibrillation [...] 2025 7:57pm Atherosclerosis of coronary artery of [place] heart without angina pectoris March 04, 2025 7:57pm CHF exacerbation March 04, 2025 7:57 pm Hypertension March 04, 2025 7:57 pm Acute on chronic diastolic congestive he art failure March 04, 2025 7:57pm Hyperkalemia March 04, 2025 7:57 pm Peripheral arterial disease March 04, 2 025 7:57pm Other persistent atrial fibrillation Feb [...] 6: 33pm DARIUSZ (acute kidney injury) April 10, 2 025 6:33pm UTI (urinary tract infection) March [...] 15, 2025 4:56 pm 6 M FU/S/P [facility] 03/09March 17, 2025 12: 51pm atrial fibrillation [...] W/POSITIVE ORTHOSTA TICS April 19, 2025 10:31am Chief Complaint Admit Date AE CHF, ATRIAL [...] 15, 2025 4:56 pm 6 M FU/S/P [facility] 03/09March 17, 2025 12: 51pm atrial fibrillation [...] W/POSITIVE ORTHOSTA TICS April 19, 2025 10:31am PRESYNCOPAL SYMPTOMS W/POSITIVE ORTHOSTA TICS April 20, 2025 1:48pm PRESYNCOPAL SYMPTOMS W/POSITIVE ORTHOSTA TICS April 20, 2025 6:11pm PRESYNCOPAL SYMPTOMS W/POSITIVE ORTHOSTA TICS April 21, 2025 7:11pm PRESYNCOPAL SYMPTOMS W/POSITIVE ORTHOSTA TICS April 23, 2025 3:12pm Reason for Visit Admit Date Acute cystitis [...] 2025 7:57pm Atherosclerosis of coronary artery of [place] heart without angina pectoris March 04, 2025 [...] 7:55pm Presence of aortocoronary bypass graft A [facility] 2024 7:55pm Acute on chronic diastolic congestive he art failure April 05, 2025 7:55pm DARIUSZ (acute kidney injury) April 05, 2 025 7:55pm Hyperkalemia April 05, 2025 7: 55pm Heart block AV complete April 10 11:14am Presence of cardiac pacemaker March 11:14am Atrial fibrillation April 10, 2025 6: 33pm BPH (benign prostatic hyperplasia) Augus t 2024 6:33pm Chronic kidney disease, stage 3b April 10, 2025 6:33pm Debility April 10, 2025 6: 33pm History of lung cancer April 10, 2025 6:33pm Pleural effusion on right April 10, 2 025 6:33pm Type 2 diabetes mellitus with hyperglyce alecia April 10, 2025 6:33pm COPD (chronic obstructive pulmonary dise ase) April 10, 2025 6:33pm Hyperlipidemia April 10, 2025 6: 33pm Acute heart failure with pre served ejection fraction (HFpEF) April 10, 2025 6:33pm Acute respiratory failure with hypoxia A ugust 2024 6:33pm DARIUSZ (acute kidney injury) April 10, 2 025 6:33pm Tachy-brittany syndrome April 10, 2025 6 :33pm UTI (urinary tract infection) March 6:33pm Atrial fibrillation April 17, 2025 6: 19pm BPH (benign prostatic hyperplasia) Augus t 2024 6:19pm Debility April 17, 2025 6: 19pm Type 2 diabetes mellitus with hyperglyce alecia April 17, 2025 6:19pm COPD (chronic obstructive pulmonary dise ase) April 17, 2025 6:19pm Hyperlipidemia April 17, 2025 6: 19pm Acute heart failure with pre served ejection fraction (HFpEF) April 17, 2025 6:19pm Acute respiratory failure with hypoxia A ugust 2024 6:19pm Pleural effusion April 17, 2025 6: 19pm Pneumonia April 17, 2025 6: 19pm Pneumothorax April 17, 2025 6: 19pm Tachy-brittany syndrome April 17, 2025 6 :19pm Orthostatic hypotension April 20 025 1:48pm Syncope April 20, 2025 1:48pm Advance Directives Advance Directive Response Recorded Date/ Time Advance Directives No February 17 4 11:03am Living Will No February 17, 2014 1 1:03am Power of Shovel Loader Operator No February 17, 2014 11:03am Advance Directive Response Recorded Date/ Time Name of Medical Power of Shovel Loader Operator SON April 14, 2022 8:29am Advance Directives No February 17 4 11:03am Living Will No April 14 8:29am Power of Shovel Loader Operator Yes April 14 022 8:29am Advance Directive Response Recorded Date/ Time Name of Medical Power of Shovel Loader Operator SON April 14, 2022 7:29am Advance Directives No February 17 4 10:03am Living Will No April 14 7:29am Power of Shovel Loader Operator Yes April 14 022 7:29am Advance Directive Response Recorded Date/ Time Advance Directives No February 17 4 10:03am Living Will No April 14 7:29am Power of Shovel Loader Operator Yes April 14 7:29am Advance Directive Response Recorded Date/ Time Advance Directives No February 17 4 11:03am Living Will No April 14 8:29am Power of Shovel Loader Operator Yes April 14 8:29am Advance Directive Response Recorded Date/ Time Name of Medical Power of Shovel Loader Operator Gideon Riosshamika December 30, 2022 10:39pm Advance Directives No February 17 11:03am Living Will Yes December 30, 2022 1 0:39pm Power of Shovel Loader Operator Yes December 30, 2022 10:39pm Advance Directive Response Recorded Date/ Time Advance Directives No February 17 11:03am Living Will Yes December 30, 2022 1 0:39pm Power of Shovel Loader Operator Yes December 30, 2022 10:39pm Advance Directive Response Recorded Date/ Time Advance Directives No February 17 10:03am Living Will Yes December 30, 2022 9 :39pm Power of Shovel Loader Operator Yes December 30, 2022 9:39pm Advance Directive Response Recorded Date/ Time Living Will Yes December 30, 2022 1 0:39pm Power of Shovel Loader Operator Yes December 30, 2022 10:39pm Advance Directives No February 17 11:03am Advance Directive Response Recorded Date/ Time Living Will Yes December 30, 2022 1 0:39pm Do you have a Healthcare Power of Shovel Loader Operator? Yes December 30, 2022 10:39pm Living Will No April 14 8:29am Do you have a Healthcare Power of Shovel Loader Operator? Yes April 14, 2022 8:29am Advance Directives No February 17 11:03am Advance Directive Response Recorded Date/ Time Living Will No April 14 8:29am Do you have a Healthcare Pow er of Shovel Loader Operator? Yes April 14, 2022 8:29am Do you have a Healthcare Pow er of Shovel Loader Operator? Yes March 04, 2025 2:58pm Name of Medical Power of Shovel Loader Operator Ed Daja olmstead March 04, 2025 2:58pm Advance Directives No February 17 11:03am Advance Directive Response Recorded Date/ Time Do you have a Healthcare Power of Shovel Loader Operator? Yes March 04, 2025 9:11pm Name of Medical Power of Shovel Loader Operator Ed Daja olmstead March 04, 2025 2:58pm Advance Directives No February 17 11:03am Advance Directive Response Recorded Date/ Time Do you have a Healthcare Power of Shovel Loader Operator? Yes March 04, 2025 9:11pm Name of Medical Power of Shovel Loader Operator Ed Daja olmstead March 04, 2025 2:58pm Do you have a Healthcare Power of Shovel Loader Operator? Yes March 15, 2025 5:04pm Name of Medical Power of Shovel Loader Operator Ed Daja March 15, 2025 5:04pm Advance Directives No February 17 11:03am Advance Directive Response Recorded Date/ Time Do you have a Healthcare Pow er of Shovel Loader Operator? Yes March 04, 2025 9:11pm Name of Medical Power of Shovel Loader Operator Ed Daja olmstead March 04, 2025 2:58pm Do you have a Healthcare Pow er of Shovel Loader Operator? Yes April 05, 2025 4:49pm Do you have a Healthcare Pow er of Shovel Loader Operator? Yes March 15, 2025 5:04pm Name of Medical Power of Shovel Loader Operator Ed Daja March 15, 2025 5:04pm Advance Directives No February 17 11:03am Advance Directive Response Recorded Date/ Time Do you have a Healthcare Pow er of Shovel Loader Operator? Yes March 04, 2025 9:11pm Name of Medical Power of Shovel Loader Operator Ed Daja olmstead March 04, 2025 2:58pm Do you have a Healthcare Pow er of Shovel Loader Operator? Yes April 05, 2025 8:49pm Do you have a Healthcare Pow er of Shovel Loader Operator? Yes March 15, 2025 5:04pm Name of Medical Power of Shovel Loader Operator Ed Daja March 15, 2025 5:04pm Advance Directives No February 17 11:03am Advance Directive Response Recorded Date/ Time Do you have a Healthcare Pow er of Shovel Loader Operator? Yes March 04, 2025 9:11pm Name of Medical Power of Shovel Loader Operator Ed Daja olmstead March 04, 2025 2:58pm Do you have a Healthcare Pow er of Shovel Loader Operator? Yes April 05, 2025 8:49pm Do you have a Healthcare Pow er of Shovel Loader Operator? Yes April 12, 2025 6:18pm Do you have a Healthcare Pow er of Shovel Loader Operator? Yes March 15, 2025 5:04pm Name of Medical Power of Shovel Loader Operator Ed Flkwasi March 15, 2025 5:04pm Do you have a Healthcare Pow er of Shovel Loader Operator? Yes April 10, 2025 10:00pm Advance Directives No February 17 11:03am Advance Directive Response Recorded Date/ Time Do you have a Healthcare Pow er of Shovel Loader Operator? Yes March 04, 2025 9:11pm Name of Medical Power of Shovel Loader Operator Ed Daja olmstead March 04, 2025 2:58pm Do you have a Healthcare Pow er of Shovel Loader Operator? Yes April 05, 2025 8:49pm Do you have a Healthcare Pow er of Shovel Loader Operator? Yes April 12, 2025 6:18pm Do you have a Healthcare Pow er of Shovel Loader Operator? Yes March 15, 2025 5:04pm Name of Medical Power of Shovel Loader Operator Ed Daja March 15, 2025 5:04pm Do you have a Healthcare Pow er of Shovel Loader Operator? Yes April 10, 2025 10:00pm Do you have a Healthcare Pow er of Shovel Loader Operator? Yes April 17, 2025 6:20pm Name of Medical Power of Shovel Loader Operator Ed Daja April 17, 2025 6:20pm Do you have a Healthcare Pow er of Shovel Loader Operator? Yes April 19, 2025 8:42am Advance Directives No February 17 11:03am Advance Directive Response Recorded Date/ Time Do you have a Healthcare Pow er of Shovel Loader Operator? Yes March 04, 2025 9:11pm Name of Medical Power of Shovel Loader Operator Ed Daja olmstead March 04, 2025 2:58pm Do you have a Healthcare Pow er of Shovel Loader Operator? Yes April 05, 2025 8:49pm Do you have a Healthcare Pow er of Shovel Loader Operator? Yes April 12, 2025 6:18pm Do you have a Healthcare Pow er of Shovel Loader Operator? Yes March 15, 2025 5:04pm Name of Medical Power of Shovel Loader Operator Ed Daja March 15, 2025 5:04pm Do you have a Healthcare Pow er of Shovel Loader Operator? Yes April 10, 2025 10:00pm Do you have a Healthcare Pow er of Shovel Loader Operator? Yes April 17, 2025 6:20pm Name of Medical Power of Shovel Loader Operator Gideon Farnsworth April 17, 2025 6:20pm Do you have a Healthcare Pow er of Shovel Loader Operator? Yes April 19, 2025 12:14pm Advance Directives No February 17 11:03am Health [...] any alcohol or drug abuse patient.[facility] the event this information is protected by the Federal Confidentiality of Alcohol and Drug Abuse Patient Records regulations: The Federal rules restrict any use of the information to criminally investigate or prosecute any alcohol or drug abuse patient.[facility] the event this information is protected by the Federal Confidentiality of Alcohol and Drug Abuse Patient Records regulations: The Federal rules restrict any use of the information to criminally investigate or prosecute any alcohol or drug abuse patient.[facility] the event this information is protected by the Federal Confidentiality of Alcohol and Drug Abuse Patient Records regulations: The Federal rules restrict any use of the information to criminally investigate or prosecute any alcohol or drug abuse patient.[facility] the event this information is protected by the Federal Confidentiality of Alcohol and Drug Abuse Patient Records regulations: The Federal rules restrict any use of the information to criminally investigate or prosecute any alcohol or drug abuse patient.[facility] Reason for Visit (unrecogniz ed section and content) Reason Comments Results Reason Comments Urinary Problem burning with urinati on x 1 week nasal congestion and drainage x 1 week Reason Comments Results COVID+ Reason Comments Patient Update Care Teams (unrecognized sec tion and content) Fuels Sales Representative Relationship Specialty Start Date End Date Tonio Fajardo DO [address] [place] [address] PCP - General Family Practice 04/05/22 Fuels Sales Representative Relationship Specialty Start Date End Date Tonio Fajardo DO [address] [place] [address] PCP - General Family Practice 04/05/22 Fuels Sales Representative Relationship Specialty Start Date End Date Tonio Fajardo DO [address] [place] [address] PCP - General Family Practice 04/05/22 Fuels Sales Representative Relationship Specialty Start Date End Date Tonio Fajardo DO [address] [place] [address] PCP - General Family Medicine 04/05/22 Team Status: Active Member Role Status Dates Dr. Tonio Fajardo DO Family Provider Active Dr. Tonio Scotty , DO Primary Care Provider Active Team Status: Inactive Member Role Status Dates Dr. Tonio Fajardo , DO Primary Care Provider, Referrin g Provider Active Iker Rodriguez DERRICK ENGINEER, DERRICK ENGINEER-C Attending Provider Active Team Status: Inactive [...] DO Primary Care Provider Active Bonny Glynn DERRICK ENGINEER, DERRICK ENGINEER-C Attending Pro vider, Referring Provider, Other [...] DO Primary Care Provider Active Bonny Glynn DERRICK ENGINEER, DERRICK ENGINEER-C Attending Provider Active Team Status: Active [...] Scotty , DO Primary Care Provider Active Bonny Glynn DERRICK ENGINEER, DERRICK ENGINEER-C Attending Provider Active Team Status: Inactive Member Role Status Dates Dr. Tonio Fajardo , DO Primary Care Provider Active Bonny Glynn DERRICK ENGINEER, DERRICK ENGINEER-C Attending Provider, Referri ng Provider Active Team Status: Inactive Member Role Status Dates Dr. Tonio Fajardo , DO Primary Care Provider, Referrin g Provider Active Dr. Tyrell Uriarte , DO Attending Provider Active Team Status: Active Member Role Status Dates Dr. Tonio Fajardo , DO Primary Care Provider Active Bonny Glynn DERRICK ENGINEER, DERRICK ENGINEER-C Attending Provider, Other P rovider Active [...] Provider, Referrin g Provider Active Bonny Glynn DERRICK ENGINEER, DERRICK ENGINEER-C Attending Provider Active Team Status: Inactive [...] Provider, Referrin g Provider Active Lorie Mart DERRICK ENGINEER, DERRICK ENGINEER-C Attending Provider Active Team Status: Inactive Member Role Status Dates Dr. Tonio Fajardo DO Primary Care Provider, Referrin g Provider Active Leslie DAMIAN PA Attending Provider Active Team Status: Inactive Member Role Status Dates Dr. Tonio Fajardo DO Primary Care Provider Active Lorie Mart DERRICK ENGINEER, DERRICK ENGINEER-C Attending Provider, Referrin g Provider Active Team Status: Active Member Role Status Dates Dr. Tonio Fajardo DO Primary Care Provider Active Dr. Issa Looney MD Attending Provider Active Team Status: Inactive Member Role Status Dates Dr. Tonio Fajardo DO Primary Care Provider Active RICKIE Mendoza Attending Provider, Referr ing Provider Active Team Status: Inactive Member Role Status Dates Dr. Tonio Fajardo DO Primary Care Provider Active Dr. Joaquim Suárez DPM Attending Provider Active Fuels Sales Representative Relationship Specialty Start Date End Date Tonio Fajardo DO [address] [place] [address] PCP - General Family Medicine 04/05/22 Team [...] September 25, 2024 End: September 25, 2024 RICKIE Mendoza Attending Provider Active Start: September 25, 2024 End: September 25, 2024 Team Status: Inactive Member Role Status Dates Dr. Tonio Fajardo DO Primary Care Provider Active Start: September 25, 2024 End: September 25, 2024 RICKIE Mendoza Attending Provider Active Start: September 25, 2024 End: September 25, 2024 Leslie Arriaga PA, PA Referring Provider Active Start: September 25, 2024 End: September 25, 2024 Team Status: Inactive Member Role Status Dates Dr. Tonio Fajardo DO Primary Care Provider Active Start: October 16, 2024 End: October 16, 2024 Lorie Mart DERRICK ENGINEER, DERRICK ENGINEER-C Attending Provider Active Start: October 16, 2024 End: October 16, 2024 Lorie Mart DERRICK ENGINEER, DERRICK ENGINEER-C Referring Provider Active Start: October 16, 2024 End: October 16, 2024 Team Status: Active Member Role Status Dates Dr. Tonio Fajardo DO Primary Care Provider Active Start: October 17, 2024 Lorie Mart DERRICK ENGINEER, DERRICK ENGINEER-C Referring Provider Active Start: October 17, 2024 Lorie Mart DERRICK ENGINEER, DERRICK ENGINEER-C Other Provider Active Start: October 17, [...] 2024 End: October 23, 2024 Lorie Mart DERRICK ENGINEER, DERRICK ENGINEER-C Attending Provider Active Start: October 23, [...] 2025 End: March 09, 2025 Dr. Santos sHu MD Other Provider Active Start: March 04, 2025 End: March 09, 2025 Iker Rodriguez DERRICK ENGINEER, DERRICK ENGINEER-C Other Provider Active Start : March [...] Provider Active Start: March 05, 2025 Dr. eDric Lantigua MD Attending Provider Active Start: March [...] Active Start: March 05, 2025 Iker Rodriguez DERRICK ENGINEER, DERRICK ENGINEER-C Other Provider Active Start : March [...] Active Start: March 06, 2025 Iker Rodriguez DERRICK ENGINEER, DERRICK ENGINEER-C Other Provider Active Start : March [...] Active Start: March 06, 2025 Iker Rodriguez DERRICK ENGINEER, DERRICK ENGINEER-C Other Provider Active Start : March [...] Active Start: March 07, 2025 Iker Rodriguez DERRICK ENGINEER, DERRICK ENGINEER-C Other Provider Active Start : March [...] Active Sta rt: March 08, 2025 Dr. oJse Lai MD Other Provider [...] Active Start: March 08, 2025 Iker Rodriguez DERRICK ENGINEER, DERRICK ENGINEER-C Other Provider Active Start : March [...] Active Start: March 08, 2025 Iker Rodriguez DERRICK ENGINEER, DERRICK ENGINEER-C Other Provider Active Start : March [...] Active Start: March 09, 2025 Iker Rodriguez DERRICK ENGINEER, DERRICK ENGINEER-C Other Provider Active Start : March [...] Provider Active Start: March 09, 2025 Iker Angelo Michael DERRICK ENGINEER, DERRICK ENGINEER-C Other Provider Active Start : March [...] 17, 2025 End: March 17, 2025 Leslie DAMIAN PA Attending Provider Active Start: March 17, [...] 27, 2025 End: March 27, 2025 Leslie DAMIAN PA Referring [...] Status: Active Member Role/Relationship Status Dates Dr. oTnio Fajardo DO Primary Care Provider Active Start: [...] , Primary Care Provider Active Start: April 08, 2025 Dr. Ld Hayes , DO Emergency Provider Active Start : April 08, 2025 Dr. Nicola Lindsey DO Admit Provider Active Start: April 08, 2025 Dr. Nicola Lindsey , DO Other Provider Active Start: April 08, [...] , Primary Care Provider Active Start: April 09, 2025 Dr. Ld Hayes , DO Emergency Provider Active Start : April [...] Sousa Attending Provider Active Start: Vasquez 2024 Team Status: Inactive Member Role/Relationship Status [...] Start: April 19, 2025 Dr. Casper Iniguez , DO Emergency Provider Active Start: April 19, 2025 Team Status: Active Member Role/Relationship Status Dates Dr. Tonio Fajardo DO Primary Care Provider Active Start: April 19, 2025 Dr. Casper Iniguez DO Emergency Provider Active Start: April 19, 2025 Dr. Kwaku Narayanan , Admit Provider Active Start: April 19, 2025 Dr. Kwaku Narayanan , Attending Provider Active Start: April 19, 2025 Team Status: Active Member Role/Relationship Status Dates Dr. Tonio Fajardo DO Primary Care Provider Active Start: April 19, 2025 Dr. Casper Iniguez DO Emergency Provider Active Start: April 19, 2025 Dr. Kwaku Narayanan DO Admit Provider Active Start: April 19, 2025 Dr. Kwaku Narayanan DO Attending Provider Active Start: April 19, 2025 Dr. Kwaku Narayanan DO Other Provider Active Start: April 19, 2025 Team Status: Inactive Member Role/Relationship Status Dates Dr. Tonio Fajardo DO Primary Care Provider Active Start: April 20, 2025 End: April 23, 2025 Dr. Casper Iniguez DO Emergency Provider Active Start: April 20, 2025 End: April 23, 2025 Dr. Kwaku Narayanan DO Admit Provider Active Start: April 20, 2025 End: April 23, 2025 Dr. Kwaku Narayanan , Other Provider Active Start: April 20, 2025 End: April 23, 2025 Dr. Tonio Mccallum DO Attending Provider Active Start: April 20, 2025 End: April 23, 2025 Team Status: Active Member Role/Relationship Status Dates Dr. Tonio Fajardo DO Primary Care Provider Active Start: April 20, 2025 Dr. Casper Iniguez DO Emergency Provider Active Start: April 20, 2025 Dr. Kwaku Narayanan DO Admit Provider Active Start: April 20, 2025 Dr. Kwaku Narayanan DO Other Provider Active Start: April 20, 2025 Dr. Tonio Mccallum DO Attending Provider Active Start: April 20, 2025 Dr. Tonio Mccallum DO Other Provider Active S tart: April 20, 2025 Team Status: Active Member Role/Relationship Status Dates Dr. Tonio Fajardo DO Primary Care Provider Active Start: April 21, 2025 Dr. Casper Iniguez DO Emergency Provider Active Start: April 21, 2025 Dr. Kwaku Narayanan DO Admit Provider Active Start: April 21, 2025 Dr. Kwaku Narayanan DO Other Provider Active Start: April 21, 2025 Dr. Tonio Mccallum DO Attending Provider Active Start: April 21, 2025 Dr. Tonio Mccallum DO Other Provider Active S tart: April 21, 2025 Team Status: Active Member Role/Relationship Status Dates Dr. Tonio Fajardo DO Primary Care Provider Active Start: April 23, 2025 Dr. Casper Iniguez DO Emergency Provider Active Start: April 23, 2025 Dr. Kwaku Narayanan DO Admit Provider Active Start: April 23, 2025 Dr. Kwaku Narayanan DO Other Provider Active Start: April 23, 2025 Dr. Tonio Mccallum DO Attending Provider Active Start: April 23, 2025 Dr. Tonio Mccallum DO Other Provider Active S tart: April 23, 2025 (unrecognized sect ion and content) No Status Records FoundNo Status Records FoundNo Status Records Found INFORMATION SOURCE (unrecogn ized section and content) DATE CREATED AUTHOR 08/12/2022 [facility] DATE CREATED AUTHOR AUTHOR'S ORGANIZ ATION 04/21/2025 [facility] DATE CREATED AUTHOR AUTHOR'S ORGANIZ ATION 04/23/2025 [facility] FOR RECORDS PERTAINING TO PATIENTS WHO [...] BE BASED ON THE PRIMARY CLINICAL RECORDS. [facility] [employer] [facility]. provides no warranty or guarantee of the accuracy or completeness of information in this document.
[2025-04-23 22:29] VITALS: BP 144/62; PULSE 97
[2025-04-24] VITALS (8 sets, daily range): BP systolic 125–145; BP diastolic 56–66; PULSE 97–99; RESP 18–20; TEMP 36; O2SAT 98–100
--- NOTE | 2025-04-24 07:19 | MDS.RN ---
MDS entry tracker complete, assessed pain.
[2025-04-24] MEDS: APIXABAN 2.5 MG TABLET (WCH) PO ×2 (09:23→21:42)
[2025-04-24] MEDS: Metoprolol(XL)Succ 25 MG Tablet 12.5 MG PO ×2 (09:24→21:45)
[2025-04-24] MEDS: Senna/Docusate Sodium 1 Tablet PO ×2 (09:24→21:45)
[2025-04-24] MEDS: Glucerna Shake 120 ML LIQUID PO ×3 (09:27→18:27)
[2025-04-24 10:15] LABS: Hematocrit 26.6 % (40-54); Hemoglobin 8.0 g/dL (13.0-16.5); Immature Granulocytes Count 0.060 X10^3/uL (0.0-0.0); Mean Corp Hgb Conc 30.1 g/dL (32-36); Mean Corpuscular Volume 90.2 fL (80-94); Mean Platelet Vol. 10.5 fl (6.2-12.0); NRBC Flagged by Analyzer 0 % (0-5); POSITIVE DIFFERENTIAL YES; Platelet Count 132 K/mm3 (150-450); RBC Distribution Width CV 17.6 % (11.6-14.6); RBC Distribution Width SD 58.4 fl (35.1-43.9); Red Blood Count 2.95 M/mm3 (4.6-6.2); White Blood Count 6.7 K/mm3 (4.4-11.0)
[2025-04-24 10:44] LABS: Anion Gap 8 (5-15); BUN 21 mg/dL (4-19); BUN/Creat Ratio 16.4 RATIO (10-20); Calcium,Total 8.6 mg/dL (7.6-11.0); Carbon Dioxide 27.4 mmol/L (21.0-32.0); Chloride 104 mmol/L (98-108); Estimated Creatinine Clearance 41.54 ml/min (50-250); Glucose 153 mg/dL (70-99); Potassium 4.2 mmol/L (3.3-5.1)
--- NOTE | 2025-04-24 11:15 | NURSING ---
Continuous Process Machine Operator Note; Activity Asset: Teri Nichols prefers to be called William. William is independent in his choice of daily activities w/reminders. He has his table and smartphone he uses for [employer] mostly. He did state he is not interested in the engineering surveyor or therapy dog and will just let them know if they stop. Nahomy retired from the [employer] after 23y. His family will visits and bring him items he may need. Staff will remind him weekly activities and respect his right to say no.
--- NOTE | 2025-04-24 13:28 | WOUNDNOTE ---
wound photo: right foot
--- NOTE | 2025-04-24 13:29 | WOUNDNOTE ---
wound photo: right medial foot
--- NOTE | 2025-04-24 13:30 | WOUNDNOTE ---
wound photo: buttocks
--- NOTE | 2025-04-24 14:24 | PHA.CONS_ITS ---
Documented by User: Mala Diamond 04/24/25 14:53 TCU RX Drug Regimen Review Subjective/Objective Subjective/Objective Subjective: TCU Admission. 80 YOM presented to ER from TCU with syncope. Hospitalized for syncope 2/2 orthostatic hypotension 2/2 autonomic dysfunction, no response to IV hydration. Admitted to TCU with debility for strengthening and rehabilitation. Objective: Allergies ibuprofen Allergy (Severe, Verified 04/19/25 08:24) Facial swelling (angioedema) Current Medications Generic Name Dose Route Start Last Admin Trade Name Freq PRN Reason Stop Dose Admin Acetaminophen 1,000 mg 04/23/25 21:27 Acetaminophen 500 Mg Tablet PO Q6H PRN PRN Pain Score 1-10 Albuterol Sulfate 2.5 mg 04/23/25 19:19 Albuterol 2.5 Mg/3 Ml Vial.Neb. INHALATION Q4H PRN shortness of breath or wheezing Albuterol/Ipratropium 3 ml 04/23/25 19:30 04/24/25 07:36 Ipratropium/Albuterol Sulfate 3 Ml Ampul.Neb INHALATION 3 ml Q8H.RT FROY Administration Apixaban 2.5 mg 04/23/25 22:00 04/24/25 09:23 Apixaban 2.5 Mg Tablet (Wch) PO 2.5 mg BID FROY Administration Calamine/Phenol 1 applic 04/23/25 22:00 04/24/25 09:26 Menthol/Lanolin/Calamine/Znox 113 Gm Tube TOPICAL 1 applic BID FROY Administration Protocol Clopidogrel Bisulfate 75 mg 04/24/25 10:00 04/24/25 09:24 Clopidogrel Bisulfate 75 Mg Tablet PO 75 mg DAILY FROY Administration Fludrocortisone Acetate 0.1 mg 04/23/25 22:00 04/24/25 09:23 Fludrocortisone Acetate 0.1 Mg Tablet PO 0.1 mg BID FROY Administration Insulin Glargine 20 unit 04/23/25 22:00 04/23/25 21:59 Insulin Glargine-Yfgn 100 Unit/Ml Pen SC 20 unit QHS FROY Administration Magnesium Citrate 150 ml 04/23/25 21:27 Magnesium Citrate 300 Ml PO DAILY PRN PRN Constipation Metoprolol Succinate 12.5 mg 04/23/25 22:00 04/24/25 09:24 Metoprolol(Xl)Succ 25 Mg Tablet PO 12.5 mg BID FROY Administration Protocol Midodrine 10 mg 04/24/25 07:45 04/24/25 13:19 Midodrine Hcl 5 Mg Tablet PO 10 mg TIDCM [facility] Administration Multivitamins 1 tablet 04/24/25 08:00 04/24/25 09:23 Multivitamins,Therapeutic Tablet PO 1 tablet DAILYCM FROY Administration Nutritional Formula (Lactose Free) 120 ml 04/24/25 07:45 04/24/25 12:13 Glucerna Shake 120 Ml Liquid PO 120 ml TIDCM FROY Administration Nystatin 1 applic 04/23/25 22:00 04/24/25 09:26 Nystatin Powder 15gm Bottle TOPICAL 1 applic BID [facility] Administration Protocol Pravastatin Sodium 20 mg 04/23/25 22:00 04/23/25 21:59 Pravastatin 20 Mg Tablet PO 20 mg QHS FROY Administration Senna/Docusate Sodium 1 tablet 04/23/25 22:00 04/24/25 09:24 Senna/Docusate Sodium 1 Tablet PO 1 tablet BID FROY Administration Sodium Chloride 10 - 40 ml 04/23/25 19:28 0.9% Saline Lock 10 Ml Syringe IV UD PRN SALINE FLUSH Tamsulosin HCl 0.4 mg 04/24/25 17:30 Tamsulosin Hcl 0.4 Mg Capsule PO DAILY@1730 [facility] Tuberculin PPD 0.1 ml 05/01/25 10:00 Tuberculin,Purif.Prot.Deriv. 50 Tu/Ml Vial ID 05/01/25 10:01 X1 ONE Problem List PAOD (peripheral arterial occlusive disease) (Acute) Recurrent right pleural effusion (Acute) (HFpEF) heart failure with preserved ejection fraction (Acute) Dehydration (Acute) Orthostatic hypotension (Acute) Syncope (Acute) BPH (benign prostatic hyperplasia) (Acute) Type 2 diabetes mellitus with hyperglycemia (Acute) Atrial fibrillation (Acute) Debility (Acute) COPD (chronic obstructive pulmonary disease) (Chronic) Hyperlipidemia (Chronic) Vital Signs Temp Pulse Resp BP Pulse Ox O2 Del Method O2 Flow Rate 96.8 F L 99 20 H 141/63 H 100 Nasal Cannula 3 04/24/25 09:00 04/24/25 09:24 04/24/25 09:00 04/24/25 13:09 04/24/25 09:00 04/24/25 09:00 04/24/25 13:28 Oxygen Flow Rate (L/min) 3 Oxygen Delivery Method Nasal Cannula Weight: 71.35 kg Body Mass Index (BMI) 25.2 Sodium 140 mmol/L (133-145) 04/24/25 09:26 Potassium 4.2 mmol/L (3.3-5.1) 04/24/25 09:26 Chloride 104 mmol/L (98-108) 04/24/25 09:26 Carbon Dioxide 27.4 mmol/L (21.0-32.0) 04/24/25 09:26 Anion Gap 8 (5-15) 04/24/25 09:26 BUN 21 mg/dL (4-19) H 04/24/25 09:26 Creatinine 1.28 mg/dL (0.70-1.20) H 04/24/25 09:26 Est GFR (MDRD) Non-Af 57 (>60) L 04/24/25 09:26 BUN/Creatinine Ratio 16.4 RATIO (10-20) 04/24/25 09:26 Glucose 153 mg/dL (70-99) H 04/24/25 09:26 Assessment/Plan: 1. Pain: acetaminophen 1000mg PO Q6H PRN pain 1-10. Resident has not used any PRN doses. Please continue to monitor for PRN usage and increased pain. 2. Bowel: senna/docusate 1T PO BID and magnesium citrate 150mL PO daily PRN constipation. Resident has not used any PRN doses. Please continue to monitor for constipation, PRN usage. Last document bowel movement:04/23/25. 3. Atrial fibrillation/PAOD: metoprolol succinate 12.5mg PO BID, apixaban 2.5mg PO BID and clopidogrel 75mg PO daily. Please continue to monitor HR (last 99), BP (last 141/63), hemoglobin (last 8g/dL), S/S of bleeding/stroke/DVT. Apixaban dose has been reduced, current SCr of 1.28mg/dL would no longer qualify for lower dose, however, the last / Scr have been <1.5mg/dL, so would not lower the dose at this time until consistently <1.5mg/dL. 4. Orthostatic hypotension: fludrocortisone 0.1mg PO BID and midodrine 10mg PO TID. Please continue to monitor BP. 5. Diabetes mellitus II: insulin glargine 20units SC QHS. Please continue to monitor hemoglobin A1c (last 6.3% 03/04/25), glucose (last 119 mg/dL, 120 mg/dL, 153mg/dL), and S/S of hypoglycemia. 6. Hyperlipidemia: pravastatin 20mg PO QHS. Please continue to monitor LFT (last 04/19/25), lipid panel (last 03/05/25) and for muscle pain. 7. BPH: tamsulosin 0.4mg PO daily. Please continue to monitor for S/S of BPH and BP. 8. COPD: Duoneb 3mL nebulized solution Q8 and albuterol 2.5mg nebulized solution Q4H PRN SOB/wheezing. No PRN doses have been given. Please continue to monitor for PRN usage, SOB, HR. 9. Nutrition: multivitamin 1T PO daily. Please continue to monitor. 10. Skin irritation/Tinea corporis: Calmoseptine topical bid and Nystatin powder topical bid. Please continue to monitor. Assessment/Plan for indications treated with psychotropic medications: Resident is not prescribed scheduled or prn psychotropic medications at the time of this drug regimen review. Medical chart and medication regimen reviewed. The following medication irregularities or issues were identified: None Date Date of Note: 04/24/25 Documented by User: Dr. Valdez Olivo MD 04/24/25 21:41 TCU RX Drug Regimen Review Provider Comments Provider responsibility Provider Comments to Recommendations by Pharmacy Agree
--- NOTE | 2025-04-24 15:31 | NURSING ---
BP 141/63 [address] Olivo made aware and he orders to precede with medication administration. Will continue to monitor BP.
--- NOTE | 2025-04-24 15:52 | CASEMGMT ---
Social Work SW met with patient to complete initial assessment. Introduced self and role. Verified contacts. SW and pt discussed code status and pt elects full code. SW educated to Medicare benefit. Pt admitted on day 5, and day 21 is 05/09. Pt reports he has a secondary insurance, , that will cover copays. Pt's goal is to return home alone. SW will continue to follow for DC planning. Criselda Townsend MSW SHRIMP HEADER
--- NOTE | 2025-04-24 16:04 | CASEMGMT ---
Social Work SW completed BIMS () and PHQ-2 () for MDS assessment. Criselda Townsend PACK MASTER LIME KILN TENDER
[2025-04-24] MEDS: Insulin Glargine-YFGN 100 UNIT/ML Pen 20 UNIT SC (21:43)
[2025-04-25] VITALS (7 sets, daily range): BP systolic 138–141; BP diastolic 58–60; PULSE 95–98; RESP 18; TEMP 36.7; O2SAT 95–98
--- NOTE | 2025-04-25 06:49 | NURSING ---
Patient's AM blood sugar was 71, peanut butter and jakub crackers given, recheck blood sugar was 64, OJ given, recheck blood sugar was 96. Dr. Olivo updated via written communication.
[2025-04-25] MEDS: Metoprolol(XL)Succ 25 MG Tablet 12.5 MG PO ×2 (08:13→21:37)
[2025-04-25] MEDS: Glucerna Shake 120 ML LIQUID PO ×3 (08:13→17:01)
[2025-04-25] MEDS: Senna/Docusate Sodium 1 Tablet PO ×2 (08:14→21:37)
[2025-04-25] MEDS: APIXABAN 2.5 MG TABLET (WCH) PO ×2 (08:14→21:37)
[2025-04-25] MEDS: Insulin Glargine-YFGN 100 UNIT/ML Pen 15 UNIT SC (21:39)
[2025-04-26] VITALS (7 sets, daily range): BP systolic 134–142; BP diastolic 59–61; PULSE 65–99; RESP 18; TEMP 36.6; O2SAT 94–98
--- NOTE | 2025-04-26 02:09 | NURSING ---
Patient had syncopal episode sitting up on side of bed to use urinal, vital signs stable, patient voices SOB per baseline, O2 via NC in place, care provided, patient instructed to call for assistance to use urinal so we can help prevent further episode.
[2025-04-26] MEDS: Glucerna Shake 120 ML LIQUID PO ×3 (08:58→17:02)
[2025-04-26] MEDS: APIXABAN 2.5 MG TABLET (WCH) PO ×2 (09:01→21:12)
[2025-04-26] MEDS: Senna/Docusate Sodium 1 Tablet PO ×2 (09:02→21:13)
[2025-04-26] MEDS: Metoprolol(XL)Succ 25 MG Tablet 12.5 MG PO ×2 (09:03→21:13)
[2025-04-26] MEDS: Insulin Glargine-YFGN 100 UNIT/ML Pen 15 UNIT SC (21:15)
[2025-04-27 01:32] VITALS: PULSE 97; O2SAT 99
[2025-04-27 07:50] VITALS: PULSE 99; RESP 18; O2SAT 99
[2025-04-27 08:00] VITALS: BP 123/59; PULSE 101; RESP 20; TEMP 36.4; O2SAT 97
[2025-04-27] MEDS: Glucerna Shake 120 ML LIQUID PO ×3 (08:02→17:37)
[2025-04-27] MEDS: Senna/Docusate Sodium 1 Tablet PO (08:03)
[2025-04-27] MEDS: APIXABAN 2.5 MG TABLET (WCH) PO ×2 (08:03→21:41)
[2025-04-27 08:04] VITALS: PULSE 101
[2025-04-27] MEDS: Metoprolol(XL)Succ 25 MG Tablet 12.5 MG PO ×2 (08:04→21:42)
--- NOTE | 2025-04-27 10:14 | NURSING ---
Addendum entered by Melanie Hood 04/27/25 14:32: Correction: appt is 04/28/25 at 1000. Original Note: [facility] appt with Carol Sousa made for 04/29/25 at 1000. Updated resident and family member Neelam via phone.
[2025-04-27 21:38] VITALS: BP 140/57; PULSE 97; O2SAT 98
[2025-04-27 21:42] VITALS: BP 140/57; PULSE 97
[2025-04-27] MEDS: Insulin Glargine-YFGN 100 UNIT/ML Pen 15 UNIT SC (21:44)
[2025-04-28] VITALS (8 sets, daily range): BP systolic 125–136; BP diastolic 56–61; PULSE 96–100; RESP 18–20; TEMP 36.2; O2SAT 94–100; BMI 25.7
[2025-04-28] MEDS: Metoprolol(XL)Succ 25 MG Tablet 12.5 MG PO ×2 (08:47→21:09)
[2025-04-28] MEDS: APIXABAN 2.5 MG TABLET (WCH) PO ×2 (08:47→21:09)
--- NOTE | 2025-04-28 10:54 | NURSING ---
pt went to [facility] for appt at 1000 and returned at 1048.
[2025-04-28] MEDS: Glucerna Shake 120 ML LIQUID PO ×2 (12:43→17:33)
[2025-04-28] MEDS: Senna/Docusate Sodium 1 Tablet PO (21:10)
[2025-04-28] MEDS: Insulin Glargine-YFGN 100 UNIT/ML Pen 15 UNIT SC (21:16)
[2025-04-29] VITALS (9 sets, daily range): BP systolic 92–147; BP diastolic 43–69; PULSE 50–95; RESP 16–24; TEMP 36.2–36.3; O2SAT 3–99
--- NOTE | 2025-04-29 05:11 | NURSING ---
BODY CLEANER calls out for assist from room, patient immediately assessed, patient observed sitting on floor in front of recliner with BLE extended toward room door, gripper socks on with global regulatory lead at side. Per patient and BODY CLEANER, patient was lowered to floor, patient states He sat me down real easy, I'm not hurt, my legs just started to give out. Patient states felt real dizzy prior to legs giving out. Denies headstrike. BP 92/58 HR 50, 90% at 3L. Head to toe assessment completed. Second RN present. Patient assisted to recliner with gait belt and 3 person assist per pt. request. Patient states I'm feeling better. Recheck bp 115/43, HR 65, Spo2 96% at 3L. Blood glucose level 92. Firm and equal hand graps. Patient to be 2 assist until therapy re-evals patient. Patient denies pain at this time. Active ROM x4. No distress observed or reported. Fluids provided per request, sitting in recliner per preference watching movie on personal tablet. Denies further requests at this time. Call light in reach
--- NOTE | 2025-04-29 06:50 | NURSING ---
Addendum entered by Jorge Denson 04/29/25 07:22: on unit at this time Original Note: Written communication left for Dr. Olivo regarding patient lowered to floor, dizziness, low BP at fall and observed to easily exacerbate with activity. Request in writing if palliative appropriate at this time.
--- NOTE | 2025-04-29 06:59 | NURSING ---
Margaret key ([place]) contacted via telephone, notified of patient lowered to floor, c/o dizziness and BLE giving out. No concerns voiced at this time, patient expresses thanks for update.
[2025-04-29] MEDS: Metoprolol(XL)Succ 25 MG Tablet 12.5 MG PO ×2 (08:39→21:30)
[2025-04-29] MEDS: APIXABAN 2.5 MG TABLET (WCH) PO ×2 (08:39→21:31)
[2025-04-29] MEDS: Glucerna Shake 120 ML LIQUID PO ×2 (08:41→12:18)
--- NOTE | 2025-04-29 09:45 | CASEMGMT ---
Social Work IDT met with patient paula and LUPE for care plan meeting. Discussed patient's progress in PT/OT/ST/SN/RDN. Educated to Medicare benefit. Pt does not have secondary insurance and admitted this stay on day 5; Day 21: 05/09, which is start of the copays. Pt stated he can provide his copays to his insurance for coverage. Provided pt/family with written communication of insurance process and copay coverage during stay. Pt lives alone but has grandchildren visit daily and [employer] 3x/wk for 2 hrs. Pt has history of dizziness and falls. IDT recommended increased assistance from aides or family. Offered therapy family training, SW inquired about a medical alert. Pt does not have one. SW recommended and provided resources. Pt was [facility] with [facility], but blames the [facility] for all of this medical issues and let his card lapse. Family has been encouraging pt to get card active again. SW also encouraged and educated to the [facility] providing assistance with [employer] MAINTENANCE WORKER, ERS, MOW, transportation. Validated feelings toward the [facility], but to allow the [facility] to cover services. Family agreed and will assist with getting card active. Family to notify this worker if that is achieved for this worker to assist with referrals. SW will continue to follow for DC planning assistance. Criselda Townsend POULTRY TENDER DIRECTOR OF EMERGENCY NURSING
[2025-04-29] MEDS: Senna/Docusate Sodium 1 Tablet PO (21:30)
[2025-04-29] MEDS: Insulin Glargine-YFGN 100 UNIT/ML Pen 15 UNIT SC (21:34)
[2025-04-30] VITALS (8 sets, daily range): BP systolic 117–141; BP diastolic 47–55; PULSE 62–99; RESP 16–20; TEMP 36.2; O2SAT 99–100
--- NOTE | 2025-04-30 07:30 | NURSING ---
Addendum entered by Charito Castillo 04/30/25 10:44: dr chávez notified of hgb 7.7, along with cxr results & BNP of 5226. new order to repeat HGB tomorrow AM & check occult stool Addendum entered by Charito Castillo 04/30/25 08:50: also new order to restart lasix 40mg daily Original Note: dr chávez notified of pt increased sob at rest and with exertion. new orders for chest & labs this am. pt updated.
--- NOTE | 2025-04-30 07:41 | RAD_ITS ---
PROCEDURE: CHEST PA AND LATERAL 04/30/2025 REASON FOR EXAM: SOB AT REST. TECHNIQUE: Procedure Code: RADCXR Modality: DX Procedure: CHEST PA AND LATERAL COMPARISON: April 19, 2025 FINDINGS: Hardware: Dual lead pacemaker is in place with its lead tips overlying the right atrium and right ventricular apex. Heart: Prior median sternotomy and CABG. Cardiac enlargement. Mitral valve annular calcification. Mediastinum: Tortuous thoracic aorta with atherosclerosis. Lungs: Interstitial edema is new. Pleural effusion and atelectasis right lung. Mild background scarring. This is similar to recent prior Bones: Degenerative changes are identified within the thoracic spine. RAD/Chest PA and Lateral IMPRESSION: 1. Cardiac enlargement, CABG 2. No change in the right pleural effusion and atelectasis. 3. New interstitial edema. Reading Location: [id number]
[2025-04-30] MEDS: Glucerna Shake 120 ML LIQUID PO ×3 (08:38→17:39)
[2025-04-30] MEDS: APIXABAN 2.5 MG TABLET (WCH) PO ×2 (08:39→21:53)
[2025-04-30] MEDS: Metoprolol(XL)Succ 25 MG Tablet 12.5 MG PO ×2 (08:39→21:54)
[2025-04-30 09:31] LABS: Hematocrit 26.0 % (40-54); Hemoglobin 7.7 g/dL (13.0-16.5); Immature Granulocytes Count 0.040 X10^3/uL (0.0-0.0); Mean Corp Hgb Conc 29.6 g/dL (32-36); Mean Corpuscular Volume 90.9 fL (80-94); Mean Platelet Vol. 10.6 fl (6.2-12.0); NRBC Flagged by Analyzer 0 % (0-5); POSITIVE DIFFERENTIAL YES; Platelet Count 163 K/mm3 (150-450); RBC Distribution Width CV 17.6 % (11.6-14.6); RBC Distribution Width SD 58.2 fl (35.1-43.9); Red Blood Count 2.86 M/mm3 (4.6-6.2); White Blood Count 4.4 K/mm3 (4.4-11.0)
[2025-04-30 10:19] LABS: Pro- Brain NATRIURETIC PEPTIDE 5226 pg/mL (<=1800)
[2025-04-30 10:28] LABS: Anion Gap 8 (5-15); BUN 27 mg/dL (4-19); BUN/Creat Ratio 20.0 RATIO (10-20); Calcium,Total 9.0 mg/dL (7.6-11.0); Carbon Dioxide 31.1 mmol/L (21.0-32.0); Chloride 101 mmol/L (98-108); Estimated Creatinine Clearance 39.38 ml/min (50-250); Glucose 221 mg/dL (70-99); Potassium 4.8 mmol/L (3.3-5.1)
[2025-04-30] MEDS: Senna/Docusate Sodium 1 Tablet PO (21:53)
[2025-04-30] MEDS: Insulin Glargine-YFGN 100 UNIT/ML Pen 15 UNIT SC (21:55)
[2025-05-01] VITALS (13 sets, daily range): BP systolic 123–153; BP diastolic 51–65; PULSE 20–100; RESP 16–20; TEMP 35.5–36.3; O2SAT 96–100; BMI 25.8
[2025-05-01 06:03] LABS: Hematocrit 22.9 % (40-54); Hemoglobin 7.0 g/dL (13.0-16.5); Immature Granulocytes Count 0.020 X10^3/uL (0.0-0.0); Mean Corp Hgb Conc 30.6 g/dL (32-36); Mean Corpuscular Volume 89.8 fL (80-94); Mean Platelet Vol. 10.5 fl (6.2-12.0); NRBC Flagged by Analyzer 0 % (0-5); Platelet Count 149 K/mm3 (150-450); RBC Distribution Width CV 17.6 % (11.6-14.6); RBC Distribution Width SD 57.8 fl (35.1-43.9); Red Blood Count 2.55 M/mm3 (4.6-6.2); White Blood Count 3.9 K/mm3 (4.4-11.0)
[2025-05-01 06:25] LABS: Anion Gap 7 (5-15); BUN 26 mg/dL (4-19); BUN/Creat Ratio 20.2 RATIO (10-20); Calcium,Total 8.8 mg/dL (7.6-11.0); Carbon Dioxide 33.0 mmol/L (21.0-32.0); Chloride 102 mmol/L (98-108); Estimated Creatinine Clearance 41.54 ml/min (50-250); Glucose 100 mg/dL (70-99); Potassium 3.8 mmol/L (3.3-5.1)
[2025-05-01] MEDS: Metoprolol(XL)Succ 25 MG Tablet 12.5 MG PO ×2 (07:27→21:24)
[2025-05-01] MEDS: Glucerna Shake 120 ML LIQUID PO ×2 (07:30→18:11)
[2025-05-01] MEDS: APIXABAN 2.5 MG TABLET (WCH) PO (07:32)
--- NOTE | 2025-05-01 07:38 | NURSING ---
pt called out I cant breath Entered room immediately and pt on LT side in bed, HOB 20 degrees. oxygen intact at 3 liters, turned up to 4L. after pulse ox started registering on pt finger, showing 99% but did take a minute to read. pt assisted to standing position to change urine soaked attends & shirt. incont care provided, triad cream applied. pt assisted to recliner chair for brkfst. pt states he does not sleep well in the bed, pt may try sleeping in chair at night.
--- NOTE | 2025-05-01 08:26 | NURSING ---
[place] Robot Operator Note; MDS for 04/30/2025 Complete
--- NOTE | 2025-05-01 09:12 | NURSING ---
pt off unit to transfusion center, HGB 7 today. symptomatic. 2 units blood to be given
[2025-05-01] MEDS: 0.9% Saline Lock 10 ML Syringe IV ×3 (09:55→21:24)
--- NOTE | 2025-05-01 14:26 | NURSING ---
infusion center called, pt on way back to floor.
--- NOTE | 2025-05-01 14:40 | NURSING ---
pt back to floor, assisted to BR then back to chair.
[2025-05-01] MEDS: Tuberculin,Purif.prot.deriv. 50 TU/ML Vial 0.1 ML ID (14:45)
[2025-05-01] MEDS: Senna/Docusate Sodium 1 Tablet PO (21:23)
[2025-05-01] MEDS: Insulin Glargine-YFGN 100 UNIT/ML Pen 15 UNIT SC (21:37)
[2025-05-01] MEDS: MELATONIN 3 MG TABLET PO (23:21)
[2025-05-02 08:38] VITALS: PULSE 102; RESP 16; O2SAT 100
[2025-05-02 09:49] VITALS: BMI 25.6
[2025-05-02 10:27] VITALS: BP 122/63; PULSE 106; RESP 18; TEMP 36.4; O2SAT 100
[2025-05-02] MEDS: Glucerna Shake 120 ML LIQUID PO ×3 (10:32→17:18)
[2025-05-02] MEDS: Senna/Docusate Sodium 1 Tablet PO (10:34)
[2025-05-02 13:08] VITALS: BP 135/64; PULSE 104
[2025-05-02] MEDS: Metoprolol(XL)Succ 25 MG Tablet 12.5 MG PO ×2 (13:08→22:52)
[2025-05-02] MEDS: 0.9% Saline Lock 10 ML Syringe IV ×2 (14:59→22:57)
[2025-05-02 15:01] LABS: Hematocrit 33.0 % (40-54); Hemoglobin 10.0 g/dL (13.0-16.5)
--- NOTE | 2025-05-02 18:29 | NURSING ---
contacted dr chávez to inquire about giving midodrine due to pt b/p 141/66 HR 106- dr chávez says to give
[2025-05-02] MEDS: MELATONIN 3 MG TABLET PO (22:51)
[2025-05-02 22:52] VITALS: BP 134/53; PULSE 103
[2025-05-02] MEDS: Insulin Glargine-YFGN 100 UNIT/ML Pen 15 UNIT SC (22:53)
[2025-05-02 23:04] VITALS: PULSE 103; RESP 17; O2SAT 100
[2025-05-03] VITALS (7 sets, daily range): BP systolic 125–149; BP diastolic 57–67; PULSE 103–106; RESP 16–22; TEMP 36.1; O2SAT 96–99
[2025-05-03] MEDS: Glucerna Shake 120 ML LIQUID PO ×3 (08:22→16:47)
[2025-05-03] MEDS: Senna/Docusate Sodium 1 Tablet PO (10:52)
[2025-05-03] MEDS: Metoprolol(XL)Succ 25 MG Tablet 12.5 MG PO ×2 (10:53→21:31)
[2025-05-03] MEDS: Albuterol 2.5 MG/3 ML VIAL.NEB. INHALATION (12:50)
[2025-05-03] MEDS: MELATONIN 3 MG TABLET PO (23:02)
[2025-05-03] MEDS: Insulin Glargine-YFGN 100 UNIT/ML Pen 15 UNIT SC (23:03)
[2025-05-04] VITALS (10 sets, daily range): BP systolic 129–143; BP diastolic 62–68; PULSE 99–105; RESP 16–20; TEMP 36.2–36.6; O2SAT 93–99; BMI 25.7
[2025-05-04] MEDS: Metoprolol(XL)Succ 25 MG Tablet 12.5 MG PO ×2 (07:33→22:43)
--- NOTE | 2025-05-04 07:48 | NURSING ---
Neelam notified of pt having EGD today by DR Goddard d/t anemia & + occult stool.
[2025-05-04 08:45] LABS: Hematocrit 31.9 % (40-54); Hemoglobin 9.7 g/dL (13.0-16.5)
--- NOTE | 2025-05-04 14:31 | NURSING ---
endo here to get pt for procedure at this time
--- NOTE | 2025-05-04 17:07 | NURSING ---
pt returned to floor at this time.
[2025-05-04] MEDS: Glucerna Shake 120 ML LIQUID PO (17:42)
[2025-05-04] MEDS: 0.9% Saline Lock 10 ML Syringe IV (22:38)
[2025-05-04] MEDS: MELATONIN 3 MG TABLET PO (22:42)
[2025-05-04] MEDS: Senna/Docusate Sodium 1 Tablet PO (22:48)
[2025-05-04] MEDS: Insulin Glargine-YFGN 100 UNIT/ML Pen 15 UNIT SC (22:49)
[2025-05-05] VITALS (8 sets, daily range): BP systolic 128–141; BP diastolic 56–61; PULSE 98–103; RESP 16–18; TEMP 36.1; O2SAT 94–99; BMI 25.9
--- NOTE | 2025-05-05 07:57 | MDS.RN ---
Information for the MDS was obtained from review of the clinical record, interview of resident, staff, and direct observation of resident?s care.
[2025-05-05] MEDS: Metoprolol(XL)Succ 25 MG Tablet 12.5 MG PO ×2 (09:13→23:06)
[2025-05-05] MEDS: Glucerna Shake 120 ML LIQUID PO ×3 (09:16→16:40)
[2025-05-05] MEDS: 0.9% Saline Lock 10 ML Syringe IV (09:30)
--- NOTE | 2025-05-05 13:47 | CASEMGMT ---
Social Work SW phoned son to follow up on DC plans. Noting pt's copay days starts on 05/09, and although pt is still medically complex and not ready for DC this week, DC planning is ongoing and takes time. Son stated he was still trying to navigate the [facility] for assistance with help in the home. SW offered to contact [facility] to ask if they have contacts for the [facility] as they work with the [facility] to get assistance for their patients. Son stated he will have his follow up. Son stated pt/family will continue to pay for the copays until services are set up for pt. SW educated the pt must continue meeting Medicare criteria for ongoing coverage in the TCU, thus, starting to plan for DC ahead of the DC date, is recommended as coordination of services takes time. Son expressed understanding and agreed to pursue the [facility] and planning. Son stated if the VA or [employer] cannot assist at home, the pt may need to DC to an AL. SW to assist with that process as well. SW requested son contact this worker with outcomes of conversations with the [facility] and [facility]. Son agreed. SW will continue to follow for DC planning. Criselda Townsend MICROBIOLOGY LAB ASSISTANT [employer] AND [employer] CLEANER
[2025-05-05] MEDS: Albuterol 2.5 MG/3 ML VIAL.NEB. INHALATION (20:07)
[2025-05-05] MEDS: MELATONIN 3 MG TABLET PO (23:05)
[2025-05-05] MEDS: Senna/Docusate Sodium 1 Tablet PO (23:05)
[2025-05-05] MEDS: Insulin Glargine-YFGN 100 UNIT/ML Pen 15 UNIT SC (23:08)
[2025-05-06 09:15] VITALS: PULSE 95; RESP 16; O2SAT 99
[2025-05-06] MEDS: Glucerna Shake 120 ML LIQUID PO ×3 (10:52→16:59)
[2025-05-06] MEDS: Senna/Docusate Sodium 1 Tablet PO ×2 (11:03→23:01)
[2025-05-06 11:08] VITALS: BP 131/60; PULSE 100
[2025-05-06] MEDS: Metoprolol(XL)Succ 25 MG Tablet 12.5 MG PO ×2 (11:08→23:02)
[2025-05-06 13:08] VITALS: BP 131/60; PULSE 100; RESP 18; TEMP 36.7; O2SAT 96
[2025-05-06 14:39] VITALS: O2SAT 96
--- NOTE | 2025-05-06 14:45 | MDS.RN ---
Information for the MDS was obtained from review of the clinical record, interview of resident, staff, and direct observation of resident?s care.
[2025-05-06 19:10] VITALS: PULSE 102; RESP 14; O2SAT 100
[2025-05-06 23:02] VITALS: BP 138/70; PULSE 101
[2025-05-06] MEDS: Insulin Glargine-YFGN 100 UNIT/ML Pen 15 UNIT SC (23:03)
[2025-05-06] MEDS: MELATONIN 3 MG TABLET PO (23:03)
[2025-05-07] VITALS (8 sets, daily range): BP systolic 125–140; BP diastolic 54–68; PULSE 80–102; RESP 16–18; TEMP 36.5–37; O2SAT 97–100
[2025-05-07] MEDS: Glucerna Shake 120 ML LIQUID PO ×3 (08:54→16:41)
[2025-05-07] MEDS: Metoprolol(XL)Succ 25 MG Tablet 12.5 MG PO ×2 (08:56→22:47)
[2025-05-07] MEDS: Senna/Docusate Sodium 1 Tablet PO ×2 (08:56→22:53)
[2025-05-07] MEDS: 0.9% Saline Lock 10 ML Syringe IV ×2 (08:57→23:11)
[2025-05-07] MEDS: MELATONIN 3 MG TABLET PO (22:46)
[2025-05-07] MEDS: Insulin Glargine-YFGN 100 UNIT/ML Pen 15 UNIT SC (22:48)
[2025-05-08 07:05] VITALS: PULSE 99; RESP 16; O2SAT 95
[2025-05-08 08:19] LABS: Hematocrit 32.0 % (40-54); Hemoglobin 9.5 g/dL (13.0-16.5); Immature Granulocytes Count 0.050 X10^3/uL (0.0-0.0); Mean Corp Hgb Conc 29.7 g/dL (32-36); Mean Corpuscular Volume 91.4 fL (80-94); Mean Platelet Vol. 10.0 fl (6.2-12.0); NRBC Flagged by Analyzer 0 % (0-5); Platelet Count 170 K/mm3 (150-450); RBC Distribution Width CV 15.9 % (11.6-14.6); RBC Distribution Width SD 53.2 fl (35.1-43.9); Red Blood Count 3.50 M/mm3 (4.6-6.2); White Blood Count 5.8 K/mm3 (4.4-11.0)
[2025-05-08] MEDS: Glucerna Shake 120 ML LIQUID PO ×3 (09:33→17:13)
[2025-05-08 09:35] VITALS: BP 137/64; PULSE 100
[2025-05-08] MEDS: Metoprolol(XL)Succ 25 MG Tablet 12.5 MG PO ×2 (09:35→22:49)
[2025-05-08 09:37] VITALS: BP 137/64; PULSE 100; RESP 17; TEMP 36.4; O2SAT 99
[2025-05-08 09:49] LABS: Anion Gap 12 (5-15); BUN 21 mg/dL (4-19); BUN/Creat Ratio 16.1 RATIO (10-20); Calcium,Total 8.8 mg/dL (7.6-11.0); Carbon Dioxide 35.3 mmol/L (21.0-32.0); Chloride 95 mmol/L (98-108); Estimated Creatinine Clearance 40.90 ml/min (50-250); Glucose 87 mg/dL (70-99); Potassium 2.7 mmol/L (3.3-5.1)
--- NOTE | 2025-05-08 10:14 | NURSING ---
Lab called this morning for critical potassium of 2.7. Dr. Olivo updated, N.O. BMP daily for the next 3 days starting tomorrow, potassium chloride 60meq x1 dose stat, then potassium chloride 20meq BID starting tomorrow
[2025-05-08] MEDS: Potassium Chloride Oral Tablet 20 MEQ 60 MEQ PO (10:48)
[2025-05-08 15:10] VITALS: PULSE 108; RESP 20
[2025-05-08] MEDS: 0.9% Saline Lock 10 ML Syringe IV ×2 (15:25→22:51)
[2025-05-08 22:42] VITALS: BP 130/66; PULSE 99; O2SAT 97
[2025-05-08] MEDS: MELATONIN 3 MG TABLET PO (22:48)
[2025-05-08 22:49] VITALS: BP 130/66; PULSE 99
[2025-05-08] MEDS: Insulin Glargine-YFGN 100 UNIT/ML Pen 15 UNIT SC (22:53)
[2025-05-08] MEDS: Senna/Docusate Sodium 1 Tablet PO (22:56)
[2025-05-09] VITALS (7 sets, daily range): BP systolic 126–141; BP diastolic 63–75; PULSE 98–103; RESP 17–20; TEMP 36; O2SAT 97–100
--- NOTE | 2025-05-09 06:42 | NURSING ---
Patient's AM blood sugar was 75, juice given per patient request, recheck blood sugar 82. Dr. Olivo updated via written communication.
[2025-05-09 07:22] LABS: Anion Gap 6 (5-15); BUN 20 mg/dL (4-19); BUN/Creat Ratio 14.3 RATIO (10-20); Calcium,Total 8.7 mg/dL (7.6-11.0); Carbon Dioxide 39.0 mmol/L (21.0-32.0); Chloride 97 mmol/L (98-108); Estimated Creatinine Clearance 39.09 ml/min (50-250); Glucose 81 mg/dL (70-99); Potassium 3.2 mmol/L (3.3-5.1)
[2025-05-09] MEDS: Metoprolol(XL)Succ 25 MG Tablet 12.5 MG PO ×2 (09:30→20:22)
[2025-05-09] MEDS: Potassium Chloride Oral Tablet 20 MEQ 40 MEQ PO (09:32)
[2025-05-09] MEDS: Glucerna Shake 120 ML LIQUID PO ×3 (09:35→17:54)
[2025-05-09] MEDS: APIXABAN 2.5 MG TABLET (WCH) PO ×2 (10:23→20:20)
[2025-05-09] MEDS: 0.9% Saline Lock 10 ML Syringe IV (11:01)
[2025-05-09] MEDS: Potassium Chloride Oral Tablet 20 MEQ PO (17:53)
--- NOTE | 2025-05-09 18:51 | NURSING ---
dr chávez updated on morning low blood sugars, new order to reduce glargine to 10 units at hs
[2025-05-09] MEDS: MELATONIN 3 MG TABLET PO (20:21)
[2025-05-09] MEDS: Insulin Glargine-YFGN 100 UNIT/ML Pen 10 UNIT SC (20:23)
[2025-05-10 07:50] LABS: Anion Gap 8 (5-15); BUN 22 mg/dL (4-19); BUN/Creat Ratio 16.5 RATIO (10-20); Calcium,Total 8.8 mg/dL (7.6-11.0); Carbon Dioxide 36.8 mmol/L (21.0-32.0); Chloride 97 mmol/L (98-108); Estimated Creatinine Clearance 39.97 ml/min (50-250); Glucose 92 mg/dL (70-99); Potassium 3.3 mmol/L (3.3-5.1)
[2025-05-10 08:30] VITALS: BP 119/59; PULSE 101; RESP 18; TEMP 36.2; O2SAT 99
[2025-05-10] MEDS: APIXABAN 2.5 MG TABLET (WCH) PO ×2 (08:33→22:22)
[2025-05-10] MEDS: Potassium Chloride Oral Tablet 20 MEQ PO ×2 (08:33→17:13)
[2025-05-10 08:35] VITALS: PULSE 101
[2025-05-10] MEDS: Metoprolol(XL)Succ 25 MG Tablet 12.5 MG PO ×2 (08:35→22:21)
[2025-05-10] MEDS: Glucerna Shake 120 ML LIQUID PO ×3 (08:38→17:14)
[2025-05-10 09:10] VITALS: PULSE 100; RESP 18; O2SAT 99
[2025-05-10 19:50] VITALS: PULSE 100; RESP 18; O2SAT 96
[2025-05-10 19:55] VITALS: PULSE 100; RESP 18; O2SAT 99
[2025-05-10 22:21] VITALS: BP 140/64; PULSE 100
[2025-05-10] MEDS: MELATONIN 3 MG TABLET PO (22:22)
[2025-05-10] MEDS: Senna/Docusate Sodium 1 Tablet PO (22:24)
[2025-05-10] MEDS: Insulin Glargine-YFGN 100 UNIT/ML Pen 10 UNIT SC (22:25)
[2025-05-11] VITALS (8 sets, daily range): BP systolic 138; BP diastolic 65; PULSE 93–100; RESP 17–28; TEMP 36.1; O2SAT 84–98
[2025-05-11] MEDS: 0.9% Saline Lock 10 ML Syringe IV (06:09)
[2025-05-11 07:41] LABS: Anion Gap 9 (5-15); BUN 23 mg/dL (4-19); BUN/Creat Ratio 17.4 RATIO (10-20); Calcium,Total 9.1 mg/dL (7.6-11.0); Carbon Dioxide 34.9 mmol/L (21.0-32.0); Chloride 95 mmol/L (98-108); Estimated Creatinine Clearance 41.21 ml/min (50-250); Glucose 110 mg/dL (70-99); Potassium 3.8 mmol/L (3.3-5.1)
[2025-05-11] MEDS: Glucerna Shake 120 ML LIQUID PO ×3 (09:17→18:02)
[2025-05-11] MEDS: Potassium Chloride Oral Tablet 20 MEQ PO ×2 (09:17→15:45)
[2025-05-11] MEDS: APIXABAN 2.5 MG TABLET (WCH) PO (09:18)
[2025-05-11] MEDS: Metoprolol(XL)Succ 25 MG Tablet 12.5 MG PO (09:19)
[2025-05-11] MEDS: Albuterol 2.5 MG/3 ML VIAL.NEB. INHALATION (15:58)
--- NOTE | 2025-05-11 20:05 | NURSING ---
Addendum entered by Luis Carlos Tena 05/11/25 20:18: Updated pt's son, Billy Calderon, via telephone regarding pt's change in status and transferring pt to ED. Son appreciative. Original Note: Pt called out complaining of SOB. Respiratory therapy notified by pt's primary nurse, RM. Upon assessment, pt's O2 saturation was 85% on 4L NC. PRN breathing treatment given by respiratory with no improvements to SOB per pt. Per respiratory, coarse crackles and rhonchi heard throughout lynn lungs. O2 sat 84% at 6L. Notified Dr. Olivo via telephone of pt's change in status. New order to send pt to emergency department for further evaluation given. Report called to ED KHURRAM Vazquez. Pt left unit at 2010 via bed.
--- NOTE | 2025-05-12 00:35 | NURSING ---
Call placed to ED to check on patient, informed that patient will be admitted to PCU.
--- NOTE | 2025-05-12 07:41 | DS.PCM_ITS ---
Providers Date of Admission: 04/23/25 Primary Care Physician: Dr. Luis Johnson, DO Consultations 04/24/25 00:49 Consult: Onc/Wound/editing computer publisher Routine Comment: Reason for Consult:: scrotum, right inner thigh, right buttocks, coccyx open areas. Comments:: open areas bleeding, nystatin ineffective. Ointment? 04/24/25 00:51 Consult: Onc/Wound/editing computer publisher Routine Comment: Reason for Consult:: right foot- top of 2nd, 3rd, 4th digits Comments:: blackenned areas. 04/30/25 17:25 Consult: Gastroenterology Routine Consulting Provider: [facility] Reason for Consult: Anemia, +Hemoccult. EMERGENT Consult: No MD Notified: Yes Date Notified: 05/01/25 Time Notified: 06:45 Method of Notification: Text Reason For Visit: SYNCOPE Diagnosis Discharge Diagnosis (1) Debility: Status: Acute Code(s): R53.81 - Other malaise (2) Syncope: Status: Inactive Code(s): R55 - Syncope and collapse (3) Orthostatic hypotension: Status: Inactive Code(s): I95.1 - Orthostatic hypotension (4) Dehydration: Status: Acute Code(s): E86.0 - Dehydration (5) (HFpEF) heart failure with preserved ejection fraction: Status: Acute Code(s): I50.30 - Unspecified diastolic (congestive) heart failure (6) Recurrent right pleural effusion: Status: Acute Code(s): J90 - Pleural effusion, not elsewhere classified (7) Tachy-brittany syndrome: Status: Resolved Code(s): I49.5 - Sick sinus syndrome (8) COPD (chronic obstructive pulmonary disease): Status: Chronic Code(s): J44.9 - Chronic obstructive pulmonary disease, unspecified Qualifiers: COPD type: emphysema Emphysema type: centrilobular Qualified Code(s): J43.2 - Centrilobular emphysema (9) Atrial fibrillation: Status: Acute Code(s): I48.91 - Unspecified atrial fibrillation (10) PAOD (peripheral arterial occlusive disease): Status: Acute Code(s): I77.9 - Disorder of arteries and arterioles, unspecified (11) Type 2 diabetes mellitus with hyperglycemia: Status: Acute Code(s): E11.65 - Type 2 diabetes mellitus with hyperglycemia (12) Hyperlipidemia: Status: Chronic Code(s): E78.5 - Hyperlipidemia, unspecified Qualifiers: Hyperlipidemia type: unspecified Qualified Code(s): E78.5 - Hyperlipidemia, unspecified (13) BPH (benign prostatic hyperplasia): Status: Acute Code(s): N40.0 - Benign prostatic hyperplasia without lower urinary tract symptoms Plan 80 year old male with below past medical history hospitalized for syncope 2/2 orthostatic hypotension 2/2 autonomic dysfunction, no response to IV hydration, admitted to TCU with debility, here for rehabilitation, strengthening, prior to discharge home alone. * Debility - PT/OT. * Pain - Tylenol 1000mg q6 prn pain (1-10). * Bowel - senna/colace 1 tablet bid, Magnesium citrate 150mL daily prn. * Adult immunization - Administer pneumonia vaccine, covid vaccine, flu vaccine as appropriate. * DVT prophylaxis - Eliquis. * COPD - Duoneb 3mL neb q8, Albuterol 2.5mg neb q4 prn. * Atrial fibrillation - Metoprolol succinate 12.5mg bid, Eliquis 2.5mg bid. * PAOD - Plavix 75mg daily, Eliquis 2.5mg bid. * Orthostatic hypotension - Fludrocortisone 0.1mg bid, Midodrine 10mg tid. * Nutrition - Glucerna shake 120mL tidcm, MVI 1 tablet daily. * Diabetes Mellitus II - Glargine 20 units qhs. * Skin irritation - Calmoseptine topical bid. * Tinea Corporis - Nystatin powder topical bid. * Hyperlipidemia - Pravastatin 20mg qhs. * BPH - Tamsulosin 0.4mg daily. Medications at Discharge Home Medications multivitamin (Daily Multi-Vitamin tablet) 1 tab PO DAILY supplement 06/28/20 pravastatin 20 mg tablet 20 mg PO DAILY hyperlipidemia 01/17/22 apixaban 5 mg tablet (Eliquis) 2.5 mg (1/2 x 5 mg) PO BID blood thinner 30 days #30 tabs 03/09/25 tamsulosin 0.4 mg capsule 0.4 mg PO DAILY@1730 prostate 30 days #30 caps 03/09/25 metoprolol succinate 25 mg tablet,extended release 24 hr 12.5 mg (1/2 x 25 mg) PO BID blood thinner #90 tabs 04/03/25 clopidogrel 75 mg tablet 75 mg PO DAILY anti platelet 04/05/25 OXYGEN - Supplemental ([facility] INFORMATIONAL USE ONLY) 04/09/25 ipratropium 0.5 mg-albuterol 3 mg (2.5 mg base)/3 mL nebulization soln 3 ml inhalation Q8H SOB 04/17/25 acetaminophen 325 mg tablet 650 mg (2 x 325 mg) PO Q6H PRN PRN Pain 1-10 Or Fever>100.7 #0 tabs 04/23/25 albuterol sulfate 2.5 mg/3 mL (0.083 %) solution for nebulization 2.5 mg (3 mL) inhalation Q4H PRN shortness of breath or wheezing #0 mL 04/23/25 fludrocortisone 0.1 mg tablet 0.1 mg PO BID hypotension #0 tabs 04/23/25 insulin lispro 100 unit/mL subcutaneous pen (Humalog KwikPen (U-100) Insulin) See Protocol subcut ACHS diabetes #0 mL 04/23/25 midodrine 5 mg tablet 10 mg (2 x 5 mg) PO TIDCM hypotension #0 tabs 04/23/25 nutrition tx glu intol,lac-free,soy-fiber 0.06 gram-1.2 kcal/mL liquid (Glucerna 1.2 Gonzalo) 120 ml PO TIDCM supplement #0 mL 04/23/25 insulin glargine-yfgn 100 unit/mL (3 mL) subcutaneous pen 20 unit subcut QHS diabetes 05/04/25 Hospital Course Operations None Procedures EGD Summary of Care Provided Minutes Spent on Discharge: 15 Hospital Course: 80 year old male with below past medical history hospitalized for syncope 2/2 orthostatic hypotension 2/2 autonomic dysfunction, no response to IV hydration, admitted to TCU with debility, here for rehabilitation, strengthening, prior to discharge home alone. 05/11/2025 Resident developed acute respiratory distress requiring high flow oxygen. Discharge to [facility] ED 05/11/2025 for evaluation, admission to hospital. Weight / BMI Weight Weight: 73.074 kg Body Mass Index (BMI) 25.9 ABG / Lab / Microbiology Data 05/08/25 08:04 05/11/25 07:12 Microbiology: Microbiology 04/30/25 11:50 Stool Stool Occult Blood (LASHAWN) - Final Occult Blood Positive D/C Instructions Discharge Activity: Return to Normal Activity, May Shower and Use Walker Weight Bearing Status: Weight bearing as tolerated Call your doctor if you observe: Fever of 101 or Higher, Inability to urinate, Inability to have a bowel movement, Shortness of breath, Dizziness, Fainting spells, Swelling in the ankles, Chest pain and Uncontrolled pain DC O2, CPAP, BIPAP Needs Home O2 Discharge instructions: No Additional Instructions: Discharge to [facility] ED 05/11/2025 for evaluation, admission to hospital. Please Follow Up With: Carol Sousa, Pacemaker clinic Meaningful Use Info Meaningful Use Meaningful Use Diagnoses (Choose all that apply): None applicable Discharge Plan Admission Admit Date/Time: 04/23/25 19:21 Primary Reason for Your Visit: syncope Attending Provider: Valdez Olivo Chi Primary Care Provider: Luis Johnson Consulting Providers: Deric Lantigua; Jakob Goddard; Karol Nava; Evelia Bedolla; Yulia Mccormick Instructions Additional Instructions / Restrictions: Discharge to [facility] ED 05/11/2025 for evaluation, admission to hospital. Discharge Orders/Prescriptions Prescriptions: No Action multivitamin [Daily Multi-Vitamin] Tablet 1 tab PO DAILY pravastatin 20 mg tablet 20 mg PO DAILY Eliquis 5 mg Tablet 2.5 mg PO BID 30 Days Qty: 30 3RF tamsulosin 0.4 mg Capsule 0.4 mg PO DAILY@1730 30 Days Qty: 30 2RF clopidogrel 75 mg tablet 75 mg PO DAILY (DME) OXYGEN - Supplemental ([facility] INFORMATIONAL USE ONLY) Gas See Rx Instructions .ROUTE Patient Comments: 2 lpm at rest, 3 lpm on exertion, 2 lpm at HS DME company: [employer] per Rx Instructions: As directed insulin glargine-yfgn 100 unit/mL (3 mL) Insulin Pen 20 unit subcut QHS ipratropium-albuterol 0.5 mg-3 mg(2.5 mg base)/3 mL solution for nebulization 3 ml inhalation Q8H acetaminophen 325 mg Tablet 650 mg PO Q6H PRN PRN (Reason: Pain 1-10 Or Fever>100.7) Qty: 0 0RF albuterol sulfate 2.5 mg /3 mL (0.083 %) Solution For Nebulization 2.5 mg inhalation Q4H PRN (Reason: shortness of breath or wheezing) Qty: 0 0RF midodrine 5 mg Tablet 10 mg PO TIDCM Qty: 0 0RF fludrocortisone 0.1 mg Tablet 0.1 mg PO BID Qty: 0 0RF insulin lispro [Humalog KwikPen Insulin] 100 unit/mL Insulin Pen See Protocol subcut ACHS Qty: 0 0RF Protocol: 3. Sliding Scale Insulin Med Dosing Condition: 150-189 mg/dl = 1 unit Condition: 190-229 mg/dl = 2 units Condition: 230-269 mg/dl = 3 units Condition: 270-309 mg/dl = 4 units Condition: 310-349 mg/dl = 5 units Condition: 350-399 mg/dl = 6 units Condition: 400-449 mg/dl = 7 units Condition: Greater than 449 call physician Protocol Text: Suggested for: - Patients on Total Daily Insulin Dose of 37-55 units - Obese, infected, or steroid patients MEDIUM DOSING ALGORITHIM Glucerna 1.2 Gonzalo 0.06-1.2 gram-kcal/mL Liquid 120 ml PO TIDCM Qty: 0 0RF metoprolol succinate 25 mg tablet extended release 24 hr 12.5 mg PO BID Qty: 90 3RF Referrals / Follow Up: [facility] [Provider Group] - 05/28/25 11:00 am Referral Note: Pacemaker check Luis Johnson DO [Primary Care Provider, Family Practice] Disposition Disposition (needs filled in before D/C Order can be placed): Acute Care Hospital [facility]
== END 2025-05-11 01:13 | disposition short-term general hospital (02) | DRG 73 ==
PROVIDERS: Admitting Provider Family Medicine Geriatric Medicine; PCP Family Medicine; Visit Provider Family Medicine Geriatric Medicine
DX: G90.9 Disorder of the autonomic nervous system, unspecified (principal); I50.33 Acute on chronic diastolic (congestive) heart failure; K25.4 Chronic or unspecified gastric ulcer with hemorrhage; D62 Acute posthemorrhagic anemia; I48.11 Longstanding persistent atrial fibrillation; I49.5 Sick sinus syndrome; B35.4 Tinea corporis; E11.22 Type 2 diabetes mellitus with diabetic chronic kidney disease; J43.2 Centrilobular emphysema; N18.30 Chronic kidney disease, stage 3 unspecified; E11.621 Type 2 diabetes mellitus with foot ulcer; I95.1 Orthostatic hypotension; E11.42 Type 2 diabetes mellitus with diabetic polyneuropathy; E11.51 Type 2 diabetes mellitus with diabetic peripheral angiopathy without gangrene; E11.65 Type 2 diabetes mellitus with hyperglycemia; E78.5 Hyperlipidemia, unspecified; I25.10 Atherosclerotic heart disease of native coronary artery without angina pectoris; K21.9 Gastro-esophageal reflux disease without esophagitis; Z79.4 Long term (current) use of insulin; L97.519 Non-pressure chronic ulcer of other part of right foot with unspecified severity; L24.A0 Irritant contact dermatitis due to friction or contact with body fluids, unspecified; T45.515A Adverse effect of anticoagulants, initial encounter; Z99.81 Dependence on supplemental oxygen; Z87.891 Personal history of nicotine dependence; N40.0 Benign prostatic hyperplasia without lower urinary tract symptoms; Z95.0 Presence of cardiac pacemaker; Z79.899 Other long term (current) drug therapy; Z79.01 Long term (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 of anticoagulants; Z79.02 Long term (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 of 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/antiplatelets; R06.03 Acute respiratory distress
CPT/HCPCS: 31720; 36415; 36430; 71046; 80048; 82274; 82962; 83880; 85014; 85018; 85025; 86850; 86900; 86901; 92507; 92523; 94640; 94668; 97110; 97116; 97162; 97166; 97530; 97535; 97802; P9016; A4216

== ENCOUNTER 2025-05-04 14:41 | Day surgery (SDC) | payer MEDICARE, SELFPAY ==
--- NOTE | 2025-05-04 14:46 | PRE.ANES_ITS ---
ASA Classification* ASA Classification ASA Classification: 3 Assessment & Plan Anesthesia* Anesthesia Assessment Anesthesia Assessment: Discussed sedation and/or anesthesia options, risks, benefits, and alternatives with patient/parents/legal guardian/POA. Questions invited. The patient/parents/legal guardian/POA seems to understand and agrees to proceed with anesthesia plan. Reviewed the physical assessment, medical history, allergy history and patient home medications list prior to surgery/procedure/anesthetic and documented any changes. Performed airway and anesthesia risk assessments. Anesthesia Type Anesthesia Type: MAC (Pacemaker) Anesthesia Focused Assessment* Airway Assessment Mouth opens: >3 cm Mallampati Score: II Labs Anesthesia Preop lab: CBC WBC 3.9 K/mm3 (4.4-11.0) L 05/01/25 05:51 05/01/25 RBC 2.55 M/mm3 (4.6-6.2) L 05/01/25 05:51 05/01/25 Hgb 9.7 g/dL (13.0-16.5) L 05/04/25 08:02 05/04/25 Hct 31.9 % (40-54) L 05/04/25 08:02 05/04/25 Plt Count 149 K/mm3 (150-450) L 05/01/25 05:51 05/01/25 CHEMISTRY Potassium 3.8 mmol/L (3.3-5.1) 05/01/25 05:51 05/01/25 Sodium 142 mmol/L (133-145) 05/01/25 05:51 05/01/25 Magnesium 2.1 mg/dL (1.5-2.2) 04/19/25 11:00 04/19/25 Phosphorus 3.9 mg/dL (2.7-4.5) 04/19/25 11:00 04/19/25 BUN 26 mg/dL (4-19) H 05/01/25 05:51 05/01/25 Creatinine 1.28 mg/dL (0.70-1.20) H 05/01/25 05:51 Glucose 100 mg/dL (70-99) H 05/01/25 05:51 05/01/25 POC Glucose 81 mg/dL (74-106) 05/04/25 05:41 05/04/25 TSH 3.830 uIU/mL (0.300-4.200) 04/05/25 19:10 03/20 03/13 COAG PT 16.7 SECONDS (11.7-14.9) H 04/10/25 10:30 03/21 10/14 Pre-Assessment Diagnosis/Proposed Procedure Planned Operative Procedure(s): EGD WITH POSSIBLE BIOPSY Anesthesia History Anesthesia History - bus assistant: Anesthesia History - bus assistant Hx Hospitalization Yes 05/04/25 13:30 Any Problems With Anesthesia No 05/04/25 13:30 Cholinesterase deficiency No 05/04/25 13:30 You/Your Family Experience No 05/04/25 13:30 fever (hyperthermia) with Relationship Recent Exposure to Contagious No 06/08/23 12:20 Disease Does patient have nerve No 05/04/25 13:30 stimulator Patient instructed to have device shut off --Does patient have Pacemaker or ICD? When Was Last Pacemaker Check QUESTION #4 FULL TEXT: You/Your Family Experience fever (hyperthermia) with Anesthesia Last Oral Intake Last Oral intake: Last Oral Intake NPO since Meds taken in AM with sips of water? Meds patient instructed to take am of surgery PONV PONV - bus assistant: PONV - bus assistant Female No 05/04/25 13:30 HX of Motion Sickness No 05/04/25 13:30 HX of N/V After Surgery Yes 05/04/25 13:30 Non-Smoker No 05/04/25 13:30 Duration of Surgery greater No 05/04/25 13:30 than 60 minutes Number of Risk Factors 1 05/04/25 13:30 PONV Score Low Risk 05/04/25 13:30 Height & Weight Height & Weight: Anesthesia: Height & Weight Height 5 ft 6 in 05/01/25 09:48 Respiratory Assessment Respiratory Assessment - bus assistant: Respiratory Tract Infection Hx - bus assistant Hx Respiratory Tract Infection No 05/04/25 13:30 STOP Sleep Apnea STOP Sleep Apnea - bus assistant: STOP Sleep Apnea - bus assistant Hx Hypertension No 05/04/25 13:30 Hx Sleep Apnea No 05/04/25 13:30 CPAP No 05/04/25 13:30 BIPAP No 05/04/25 13:30 Do you snore loudly (louder Yes 05/04/25 13:30 than talking or can be heard Do you often feel tired/ Yes 05/04/25 13:30 fatigued/ sleepy during daytime? Has anyone observed you stop No 05/04/25 13:30 breathing during sleep? STOP Results Positive 05/04/25 13:30 QUESTION #5 FULL TEXT : Do you snore loudly (louder than talking or can be heard through closed doors)? Tobacco Use History Tobacco Use History - bus assistant: Tobacco Use History - bus assistant Tobacco Use Smoking Status Former smoker 05/04/25 13:30 Hx Tobacco Use Yes: stopped in aug 2012 05/04/25 13:30 Years Smoking Packs Smoked per Day Smoking Cessation Date was Yes - quit smoking within 05/04/25 13:30 within the last 15 years years Hx Smoking Cessation Date Hx Smoking Cessation No 05/04/25 13:30 Counseling Hematologic Medial History Hematologic Hx - bus assistant: Hematologic Medical Hx - senior communications specialist Hx of Blood Transfusion No 05/04/25 13:30 Hx of Transfusion in last 3 No 05/04/25 13:30 Months Date of Last Transfusion (if within last 3 months) Ever experience any problems No 05/04/25 13:30 with transfusion(s)? Specify any problems Hx of Preganancy in last 3 N/A 05/04/25 13:30 Months Nurse Filling Out Transfusion [facility] 05/04/25 13:30 & Questions: Date: 05/04/25 05/04/25 13:30 Time: 13:33 05/04/25 13:30 Patient unable to answer at this time (ie. confused, unrespo /Reproduction History /Reproductive History - bus assistant: /Reproductive Hx- bus assistant Hx Now Gestational Age (in weeks): EDC: Hx Hx Para Hx Section SAB Active Medications Active Medications: Current Medications Generic Name Dose Route Start Last Admin Trade Name Freq PRN Reason Stop Dose Admin Lactated Ringer's 1,000 mls @ 15 mls/hr 05/04/25 13:30 IV .Q48H FROY PFSH Medical History Orthostatic hypotension Syncope Presence of cardiac pacemaker Peripheral arterial disease Other persistent atrial fibrillation New onset atrial flutter COVID Wears hearing aid in both ears Former smoker Coronary artery disease Peripheral vascular occlusive disease BPH (benign prostatic hyperplasia) Chronic kidney disease, stage 3 Atherosclerosis of coronary artery of [place] heart without angina pectoris Hyperlipidemia Lower extremity edema Venous insufficiency Malnutrition Delayed wound healing Osteomyelitis of ankle, left, acute Ulcer of left lower extremity with fat layer exposed Type 2 diabetes mellitus with diabetic polyneuropathy Anemia GERD (gastroesophageal reflux disease) Hypertension Home Medications ?Medication ?Instructions ?Recorded ?Last Taken ?Type multivitamin (Daily Multi-Vitamin 1 tab PO DAILY suppl ement 06/28/20 05/03/25 History tablet) pravastatin 20 mg tablet 20 mg PO DAILY hyperlipidemi a 01/17/22 05/03/25 History docusate sodium 100 mg capsule 100 mg PO DAILY PRN sto ol softner 07/25/23 Unknown History (Colace) apixaban 5 mg tablet (Eliquis) 2.5 mg (1/2 x 5 mg) PO BID blood 03/09/25 05/01/25 Rx Held on 05/04/25. thinner 30 days #30 tabs Instructions: FOR PROCEDURE, LOW HGB tamsulosin 0.4 mg capsule 0.4 mg PO DAILY@1730 prostat e 30 03/09/25 05/03/25 Rx days #30 caps metoprolol succinate 25 mg 12.5 mg (1/2 x 25 mg) PO BI D blood 04/03/25 05/04/25 Rx tablet,extended release 24 hr thinner #90 tabs clopidogrel 75 mg tablet 75 mg PO DAILY anti platelet 04/05/25 05/03/25 History OXYGEN - Supplemental ([facility] 04/09/25 Unknown History INFORMATIONAL USE ONLY) ipratropium 0.5 mg-albuterol 3 mg 3 ml inhalation Q8H SOB 04/17/25 Unknown Histo ry (2.5 mg base)/3 mL nebulization soln acetaminophen 325 mg tablet 650 mg (2 x 325 mg) PO Q6H PRN PRN 04/23/25 05/03/25 Rx Pain 1-10 Or Fever>100.7 #0 tabs albuterol sulfate 2.5 mg/3 mL 2.5 mg (3 mL) inhalation Q4H PRN 04/23/25 05/03/25 Rx (0.083 %) solution for nebulization shortness of breat h or wheezing #0 mL fludrocortisone 0.1 mg tablet 0.1 mg PO BID hypotensio n #0 tabs 04/23/25 05/03/25 Rx insulin lispro 100 unit/mL See Protocol subcut ACHS di abetes 04/23/25 Unknown Rx subcutaneous pen (Humalog KwikPen #0 mL (U-100) Insulin) midodrine 5 mg tablet 10 mg (2 x 5 mg) PO TIDCM Unknown Rx Held on 05/04/25. hypotension #0 tabs Instructions: NOT ORDERED IN PATIENT nutrition tx glu 120 ml PO TIDCM supplement # 0 mL 04/23/25 05/03/25 Rx intol,lac-free,soy-fiber 0.06 gram-1.2 kcal/mL liquid (Glucerna 1.2 Gonzalo) insulin glargine-yfgn 100 unit/mL 15 unit subcut QHS d iabetes 05/04/25 05/03/25 History (3 mL) subcutaneous pen Allergy/AdvReac Type Severity Reaction Status Date / Time ibuprofen Allergy Severe Facial Verified 05/01/25 09:47 swelling (angioedema) Family History Brother Diabetes Father , Age 72 stomach ulcers No problems noted. Mother , Age 71 pancreatitis No problems noted. Sister , hepatitis C No problems noted. Surgical History History of permanent cardiac pacemaker placement H/O aorto-femoral bypass (~2009) History of transurethral resection of prostate Presence of aortocoronary bypass graft (~03/2013) Social History household members: none Smoking Status: Former smoker Tobacco: How many years used: 30 how long ago did patient quit smokin years Review of Systems (Anesthesia) ROS Narrative System reviewed and no additional complaints, except as documented.
[2025-05-04 14:51] VITALS: BP 138/65; PULSE 105; RESP 18; TEMP 36.6; O2SAT 99; BMI 25.7
[2025-05-04] MEDS: Lactated Ringers 1,000 ML 15 ML IV (15:01)
--- NOTE | 2025-05-04 16:06 | HP.PCM_ITS ---
HPI - General General Date of Admission: 05/04/25 Date of Service: 05/04/25 Chief Complaint: Anemia HPI Narrative PEDRO HILLMAN, is a 80-year-old white male was seen in the emergency room at [facility] after sustaining a syncopal episode and TCU where he was undergoing rehab services. Workup in the emergency room included labs which showed a slightly low hemoglobin at 9.6, chemistry profile was remarkable for creatinine of 1.7 and a BUN of 40, patient's troponin was elevated at 99, chest x-ray was unremarkable. It was noted that the patient's blood pressure dropped to 85/68 sitting in the emergency room, the patient was symptomatic during this. Patient was admitted to PCU, his blood pressures were monitored, he was given IV fluids without resolution of his orthostatic hypotension. Patient was seen by PT and OT, midodrine was added to the patient's medical regiment but the patient still remained orthostatically hypotensive. At that point, Florinef was added to the patient's medical regimen with some improvement in his blood pressure. He was sent over to the transitional care unit for further rehab and strengthening prior to being DC to home. While in rehab his hemoglobin continued to drop all way down to 6.7. He was transfused 3 units of packed red blood cells. I was consulted for his anemia. [facility] Medical History Orthostatic hypotension Syncope Presence of cardiac pacemaker Peripheral arterial disease Other persistent atrial fibrillation New onset atrial flutter COVID Wears hearing aid in both ears Former smoker Coronary artery disease Peripheral vascular occlusive disease BPH (benign prostatic hyperplasia) Chronic kidney disease, stage 3 Atherosclerosis of coronary artery of [place] heart without angina pectoris Hyperlipidemia Lower extremity edema Venous insufficiency Malnutrition Delayed wound healing Osteomyelitis of ankle, left, acute Ulcer of left lower extremity with fat layer exposed Type 2 diabetes mellitus with diabetic polyneuropathy Anemia GERD (gastroesophageal reflux disease) Hypertension Home Medications ?Medication ?Instructions ?Recorded ?Last Taken ?Type multivitamin (Daily Multi-Vitamin 1 tab PO DAILY suppl ement 06/28/20 05/03/25 History tablet) pravastatin 20 mg tablet 20 mg PO DAILY hyperlipidemi a 01/17/22 05/03/25 History docusate sodium 100 mg capsule 100 mg PO DAILY PRN sto eliazar rincon 07/25/23 Unknown History (Colace) apixaban 5 mg tablet (Eliquis) 2.5 mg (1/2 x 5 mg) PO BID blood 03/09/25 05/01/25 Rx Held on 05/04/25. thinner 30 days #30 tabs Instructions: FOR PROCEDURE, LOW HGB tamsulosin 0.4 mg capsule 0.4 mg PO DAILY@1730 prostat e 30 03/09/25 05/03/25 Rx days #30 caps metoprolol succinate 25 mg 12.5 mg (1/2 x 25 mg) PO BI D blood 04/03/25 05/04/25 Rx tablet,extended release 24 hr thinner #90 tabs clopidogrel 75 mg tablet 75 mg PO DAILY anti platelet 04/05/25 05/03/25 History OXYGEN - Supplemental ([facility] 04/09/25 Unknown History INFORMATIONAL USE ONLY) ipratropium 0.5 mg-albuterol 3 mg 3 ml inhalation Q8H SOB 04/17/25 Unknown History (2.5 mg base)/3 mL nebulization soln acetaminophen 325 mg tablet 650 mg (2 x 325 mg) PO Q6H PRN PRN 04/23/25 05/03/25 Rx Pain 1-10 Or Fever>100.7 #0 tabs albuterol sulfate 2.5 mg/3 mL 2.5 mg (3 mL) inhalation Q4H PRN 04/23/25 05/03/25 Rx (0.083 %) solution for nebulization shortness of breat h or wheezing #0 mL fludrocortisone 0.1 mg tablet 0.1 mg PO BID hypotensio n #0 tabs 04/23/25 05/03/25 Rx insulin lispro 100 unit/mL See Protocol subcut ACHS di abetes 04/23/25 Unknown Rx subcutaneous pen (Humalog KwikPen #0 mL (U-100) Insulin) midodrine 5 mg tablet 10 mg (2 x 5 mg) PO TIDCM Unknown Rx Held on 05/04/25. hypotension #0 tabs Instructions: NOT ORDERED IN PATIENT nutrition tx glu 120 ml PO TIDCM supplement # 0 mL 04/23/25 05/03/25 Rx intol,lac-free,soy-fiber 0.06 gram-1.2 kcal/mL liquid (Glucerna 1.2 Gonzalo) insulin glargine-yfgn 100 unit/mL 15 unit subcut QHS d iabetes 05/04/25 05/03/25 History (3 mL) subcutaneous pen Allergy/AdvReac Type Severity Reaction Status Date / Time ibuprofen Allergy Severe Facial Verified 05/01/25 09:47 swelling (angioedema) Family History Brother Diabetes Father , Age 72 stomach ulcers No problems noted. Mother , Age 71 pancreatitis No problems noted. Sister , hepatitis C No problems noted. Surgical History History of permanent cardiac pacemaker placement H/O aorto-femoral bypass (~2009) History of transurethral resection of prostate Presence of aortocoronary bypass graft (~03/2013) Social History household members: none Smoking Status: Former smoker Tobacco: How many years used: 30 how long ago did patient quit smokin years ROS Constitutional Constitutional: Denies fatigue, fever(s), poor appetite, weight gain or weight loss Gastrointestinal Gastrointestinal: Denies belching, bloating, change in bowel habits, change in stool character, chewing difficulty, coffee ground emesis, constipation, cramping, diarrhea, dyspepsia, dysphagia, early satiety, excessive flatus, fecal incontinence, heartburn, hematemesis, hematochezia, hemorrhoids, loose stools, melena, nausea, odynophagia, rectal bleeding, tenesmus, vomiting or weight jones es Vital Signs Vital Signs Vital Signs: 05/04/25 14:51 Temperature 97.8 F Temperature Source Temporal Pulse Rate 105 H Respiratory Rate 18 Blood Pressure 138/65 H Blood Pressure Mean 89 Blood Pressure Source Monitor Blood Pressure Position Semi-Fowlers Blood Pressure Location Left Arm Pulse Ox 99 Oxygen Delivery Method Nasal Cannula Oxygen Flow Rate (L/min) 3 Weight Weight: 159 lb 7.718 oz Body Mass Index (BMI) 25.7 Physical Exam Const alert, oriented x3, no apparent distress and healthy appearing General Appearance: cooperative GI normal to inspection, nondistended, normoactive bowel sounds, soft to palpation, non-tender and non-distended Percussion: normal to percussion Rectal Exam: deferred Assessment & Plan Assessment/Plan (1) Atrial fibrillation: PLAN: 80-year-old gentleman with history of peripheral artery disease, coronary artery disease on Plavix, CHF, recurrent right-sided pleural effusion, CKD stage III, history of lung cancer, atrial fibrillation on anticoagulation currently with significant iron deficiency anemia. He will need to undergo an upper endoscopy possibly colonoscopy and plus or minus capsule endoscopy. He was explained alternatives, risk and benefits include not withstanding bleeding, infection, sepsis, perforation, need for discharge and . He will have an ASA of 3.
[2025-05-04] MEDS: Lidocaine 1% (5 ml sdv) 5 ML Vial IV (16:16)
[2025-05-04 16:30] VITALS: BP 108/36; BP 138/65; PULSE 99; RESP 16; TEMP 36.3; O2SAT 92
--- NOTE | 2025-05-04 16:33 | OP.PROVAT_ITS ---
05/04/2025 Luis Johnson [address] [facility] [place] [address] Re : Upper GI endoscopy procedure for Simone Gunter Dear Dr. Johnson This procedure was performed on Sunday, May 04, 2025. My impressions and recommendations are as follows: Impressions : - No gross lesions in the entire esophagus. - Oozing gastric ulcer with pigmented material. Treated with a heater probe. - A single non-bleeding angiodysplastic lesion in the stomach. Treated with a heater probe. - Three non-bleeding angiodysplastic lesions in the duodenum. Treated with a heater probe. - No specimens collected. Recommendations : - Discharge patient to a half-way. - Resume regular diet. - Continue present medications. My findings are described in the full procedure note, which is enclosed. If I can be of further assistance, please feel free to contact me at . Sincerely, Jakob Goddard, 05/04/2025 4:32:25 PM This report has been signed electronically.
--- NOTE | 2025-05-04 16:33 | OP.EGD_ITS ---
Patient Name: Simone Gunter Procedure Date: 05/04/2025 3:19 PM Date of : 1945 Age: 80 Procedure: Upper GI endoscopy Indications: Iron deficiency anemia Providers: Jakob Goddard DO Medicines: Monitored Anesthesia Care Patient Profile: This is an 80 year old male. Complications: No immediate complications. Procedure: Pre-Anesthesia Assessment: - Prior to the procedure, a History and Physical was performed, and patient medications and allergies were reviewed. The patient is competent. The risks and benefits of the procedure and the sedation options and risks were discussed with the patient. All questions were answered and informed consent was obtained. Patient identification and proposed procedure were verified by the physician in the pre-procedure area. Mental Status Examination: alert and oriented. Airway Examination: normal oropharyngeal airway and neck mobility. Respiratory Examination: clear to auscultation. CV Examination: normal. ASA Grade Assessment: III - A patient with severe systemic disease. After reviewing the risks and benefits, the patient was deemed in satisfactory condition to undergo the procedure. The anesthesia plan was to use monitored anesthesia care (MAC). Immediately prior to administration of medications, the patient was re-assessed for adequacy to receive sedatives. The heart rate, respiratory rate, oxygen saturations, blood pressure, adequacy of pulmonary ventilation, and response to care were monitored throughout the procedure. The physical status of the patient was re-assessed after the procedure. After obtaining informed consent, the endoscope was passed under direct vision. Throughout the procedure, the patient's blood pressure, pulse, and oxygen saturations were monitored continuously. The Endoscope was introduced through the mouth, and advanced to the fourth part of the duodenum. Small bowel enteroscopy was deemed necessary. The upper GI endoscopy was accomplished without difficulty. The patient tolerated the procedure well. Scope In: 4:21:17 PM Scope Out: 4:25:39 PM Total Procedure Duration Time 0 hours 4 minutes 22 seconds Findings: No gross lesions were noted in the entire esophagus. One oozing linear gastric ulcer with pigmented material was found at the pylorus. The lesion was 6 mm in largest dimension. Coagulation for hemostasis using heater probe was successful. Estimated blood loss was minimal. A single 5 mm angiodysplastic lesion with no bleeding was found in the gastric antrum. Coagulation for bleeding prevention using heater probe was successful. Estimated blood loss was minimal. Three 5 mm angiodysplastic lesions without bleeding were found in the duodenal bulb and in the second portion of the duodenum. Coagulation for destruction of remaining portion of lesion using heater probe was successful. Estimated blood loss was minimal. Impression: - No gross lesions in the entire esophagus. - Oozing gastric ulcer with pigmented material. Treated with a heater probe. - A single non-bleeding angiodysplastic lesion in the stomach. Treated with a heater probe. - Three non-bleeding angiodysplastic lesions in the duodenum. Treated with a heater probe. - No specimens collected. Recommendation: - Discharge patient to a halfway. - Resume regular diet. - Continue present medications. Procedure Code(s): --- Professional --- 23143, Small intestinal endoscopy, enteroscopy beyond second portion of duodenum, not including ileum; with ablation of tumor(s), polyp(s), or other lesion(s) not amenable to removal by hot biopsy forceps, bipolar cautery or snare technique 65957, 59,51, Small intestinal endoscopy, enteroscopy beyond second portion of duodenum, not including ileum; with control of bleeding (eg, injection, bipolar cautery, unipolar cautery, laser, heater probe, stapler, plasma network engineer administrator) CPT copyright 2021 [employer]. All rights reserved. The codes documented in this report are preliminary and upon investigative assistant review may be revised to meet current compliance requirements. Jakob Goddard DO 05/04/2025 4:32:25 PM This report has been signed electronically. Number of Addenda: 0 Note Initiated On: 05/04/2025 3:19 PM
--- NOTE | 2025-05-04 16:34 | PCM.POST.ANE ---
Anesthesia: Postop Eval I Current Vital Signs Temperature: 97.5 F Pulse Rate: 97 Blood Pressure: 108/36 Respiratory Rate: 16 Pulse Ox: 90 Oxygen Delivery Method: Nasal Cannula Oxygen Flow Rate (L/min): 4 Assessment Airway patent: Yes Spontaneous unlabored respirations: Yes Mental status: Asleep nausea: No Vomiting: No Anesthesia Complication: No Fluid Hydration Crystalloid volume administer (ml): 100 Total IV fluid infused: 100 Progress Note Anesthesia document: Postop Eval 1 completed: Yes
[2025-05-04 16:35] VITALS: BP 106/44; BP 108/36; BP 138/65; PULSE 97; PULSE 99; RESP 16; TEMP 36.4; O2SAT 90; O2SAT 98
[2025-05-04 16:40] VITALS: BP 130/54; BP 138/65; PULSE 101; RESP 16; O2SAT 98
[2025-05-04 16:45] VITALS: BP 138/65; BP 142/52; PULSE 101; RESP 16; TEMP 36.3; O2SAT 97
--- NOTE | 2025-05-04 17:14 | POSTOPAN2_ITS ---
Anesthesia Postop Eval I Sum Postop Eval Completion status Anesthesia document: Postop Eval 1 completed: Yes Anesthesia Postop Eval I Summary Anesthesia Postop Eval I Summary: Anesthesia Postop Eval I: Assessment Summary Airway patent Yes 05/04/25 16:35 COIL WINDER [email or web address] Spontaneous unlabored Yes 05/04/25 16:35 COIL WINDER HAND.TDOB respirations Mental status Asleep 05/04/25 16:35 COIL WINDER HAND.TDOB nausea No 05/04/25 16:35 COIL WINDER HAND.TDOB Vomiting No 05/04/25 16:35 COIL WINDER HAND.TDOB Anesthesia Postop Eval I: Fluid Summary Crystalloid volume administer 100 05/04/25 16:35 COIL WINDER HAND.TDOB (ml) Colloids volume administered ( ml) Blood Product volume administered (ml) Total IV fluid infused 100 05/04/25 16:35 COIL WINDER HAND.TDOB Anesthesia Postop Eval I: Summary Notes Anesthesia Complication No 05/04/25 16:35 COIL WINDER HAND.TDOB Anesthesia Complication Comment: Post-operative progress note Anesthesia: Postop Eval II Evaluation Mental status: Awake Pain Level: 0 nausea: No Vomiting: No
--- NOTE | 2025-05-04 17:14 | PCM.POSTANE2 ---
Anesthesia Postop Eval I Sum Postop Eval Completion status Anesthesia document: Postop Eval 1 completed: Yes Anesthesia Postop Eval I Summary Anesthesia Postop Eval I Summary: Anesthesia Postop Eval I: Assessment Summary Airway patent Yes 05/04/25 16:35 FLOOR [email or web address] Spontaneous unlabored Yes 05/04/25 16:35 FLOOR [email or web address].TDOB respirations Mental status Asleep 05/04/25 16:35 FLOOR SWEEPER.TDOB nausea No 05/04/25 16:35 FLOOR SWEEPER.TDOB Vomiting No 05/04/25 16:35 FLOOR SWEEPER.TDOB Anesthesia Postop Eval I: Fluid Summary Crystalloid volume administer 100 05/04/25 16:35 FLOOR [email or web address].TDOB (ml) Colloids volume administered ( ml) Blood Product volume administered (ml) Total IV fluid infused 100 05/04/25 16:35 FLOOR SWEEPER.TDOB Anesthesia Postop Eval I: Summary Notes Anesthesia Complication No 05/04/25 16:35 FLOOR SWEEPER.TDOB Anesthesia Complication Comment: Post-operative progress note Anesthesia: Postop Eval II Evaluation Mental status: Awake Pain Level: 0 nausea: No Vomiting: No
== END 2025-05-04 16:59 | disposition home or self-care (01) ==
LOC: EN 14:41 → AC 14:42
PROVIDERS: PCP Family Medicine; Referring Provider Family Medicine; Visit Provider Internal Medicine Gastroenterology
PROC: 0DJ08ZZ Inspection of Upper Intestinal Tract, Via Natural or Artificial Opening Endoscopic (ICD-10-PCS; CPT 43235; principal; 2025-05-04 15:55)
DX: K31.819 Angiodysplasia of stomach and duodenum without bleeding (principal); I48.19 Other persistent atrial fibrillation; Z79.4 Long term (current) use of insulin; E11.22 Type 2 diabetes mellitus with diabetic chronic kidney disease; N18.30 Chronic kidney disease, stage 3 unspecified; K25.9 Gastric ulcer, unspecified as acute or chronic, without hemorrhage or perforation; Z87.891 Personal history of nicotine dependence; D50.9 Iron deficiency anemia, unspecified; I25.10 Atherosclerotic heart disease of native coronary artery without angina pectoris; E78.5 Hyperlipidemia, unspecified; K21.9 Gastro-esophageal reflux disease without esophagitis; I12.9 Hypertensive chronic kidney disease with stage 1 through stage 4 chronic kidney disease, or unspecified chronic kidney disease; Z79.01 Long term (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 of anticoagulants; Z79.02 Long term (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 of 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/antiplatelets
CPT/HCPCS: 44366; 44369; 82962; C1889

== ENCOUNTER 2025-05-11 20:15 | Inpatient (IN) | payer MEDICARE, OTHER, SELFPAY ==
[2025-05-11] VITALS (10 sets, daily range): BP systolic 153–168; BP diastolic 66–118; PULSE 99–126; RESP 12–36; TEMP 36.1–37.2; O2SAT 94–100; BMI 27.1
--- NOTE | 2025-05-11 20:28 | EKG12_ITS ---
Test Reason : DYSRHYTHMIA Blood Pressure : */* mmHG Vent. Rate : 102 BPM Atrial Rate : 202 BPM P-R Int : * ms QRS Dur : 114 ms QT Int : 384 ms P-R-T Axes : 8 8 -1 degrees QTcB Int : 500 ms Atrial flutter with variable A-V block with premature ventricular or aberrantly conducted complexes Incomplete right bundle branch block Nonspecific ST abnormality Prolonged QT Abnormal ECG Confirmed by CAMILLE STRATTON, SANDRA ([id number]), subeditor AYDEN TENORIO ([id number]) on 05/12/2025 7:33:14 AM Referred By: Confirmed By: SANDRA OBRIEN MD
--- NOTE | 2025-05-11 20:28 | ED.VIS.DYS ---
HPI History of Present Illness Chief Complaint: Shortness of Breath [facility] Medical History Orthostatic hypotension Syncope Presence of cardiac pacemaker Peripheral arterial disease Other persistent atrial fibrillation New onset atrial flutter [place] Wears hearing aid in both ears Former smoker Coronary artery disease Peripheral vascular occlusive disease BPH (benign prostatic hyperplasia) Chronic kidney disease, stage 3 Atherosclerosis of coronary artery of elem heart without angina pectoris Hyperlipidemia Lower extremity edema Venous insufficiency Malnutrition Delayed wound healing Osteomyelitis of ankle, left, acute Ulcer of left lower extremity with fat layer exposed Type 2 diabetes mellitus with diabetic polyneuropathy Anemia GERD (gastroesophageal reflux disease) Hypertension Home Medications ?Medication ?Instructions ?Recorded ?Last Taken ?Type multivitamin (Daily Multi-Vitamin 1 tab PO DAILY supplement 06/28/20 05/03/25 History tablet) pravastatin 20 mg tablet 20 mg PO DAILY hyperlipidemia 01/17/22 05/03/25 History apixaban 5 mg tablet (Eliquis) 2.5 mg (1/2 x 5 mg) PO BID blood 03/09/25 05/01/25 Rx thinner 30 days #30 tabs tamsulosin 0.4 mg capsule 0.4 mg PO DAILY@1730 prostate 30 03/09/25 05/03/25 Rx days #30 caps metoprolol succinate 25 mg 12.5 mg (1/2 x 25 mg) PO BID blood 04/03/25 05/04/25 Rx tablet,extended release 24 hr thinner #90 tabs clopidogrel 75 mg tablet 75 mg PO DAILY anti platelet 04/05/25 05/03/25 History OXYGEN - Supplemental ([facility] 04/09/25 Unknown History INFORMATIONAL USE ONLY) ipratropium 0.5 mg-albuterol 3 mg 3 ml inhalation Q8H SOB 04/17/25 Unknown History (2.5 mg base)/3 mL nebulization soln acetaminophen 325 mg tablet 650 mg (2 x 325 mg) PO Q6H PRN PRN 04/23/25 05/03/25 Rx Pain 1-10 Or Fever>100.7 #0 tabs albuterol sulfate 2.5 mg/3 mL 2.5 mg (3 mL) inhalation Q4H PRN 04/23/25 05/03/25 Rx (0.083 %) solution for nebulization shortness of breath or wheezing #0 mL fludrocortisone 0.1 mg tablet 0.1 mg PO BID hypotension #0 tabs 04/23/25 05/03/25 Rx insulin lispro 100 unit/mL See Protocol subcut ACHS diabetes 04/23/25 Unknown Rx subcutaneous pen (Humalog KwikPen #0 mL (U-100) Insulin) midodrine 5 mg tablet 10 mg (2 x 5 mg) PO TIDCM 04/23/25 Unknown Rx hypotension #0 tabs nutrition tx glu 120 ml PO TIDCM supplement #0 mL 04/23/25 05/03/25 Rx intol,lac-free,soy-fiber 0.06 gram-1.2 kcal/mL liquid (Glucerna 1.2 Gonzalo) insulin glargine-yfgn 100 unit/mL 20 unit subcut [facility] diabetes 05/04/25 05/03/25 History (3 mL) subcutaneous pen Allergy/AdvReac Type Severity Reaction Status Date / Time ibuprofen Allergy Severe Facial Verified 05/11/25 20:31 swelling (angioedema) Family History Brother Diabetes Father , Age 72 stomach ulcers No problems noted. Mother , Age 71 pancreatitis No problems noted. Sister , hepatitis C No problems noted. Surgical History History of permanent cardiac pacemaker placement H/O aorto-femoral bypass (~2009) History of transurethral resection of prostate Presence of aortocoronary bypass graft (~03/2013) Social History household members: none Smoking Status: Former smoker Tobacco: How many years used: 30 how long ago did patient quit smokin years EXAM Physical Exam Const Vital Signs: 05/11/25 20:16 05/11/25 20:31 05/11/25 20:38 Temperature 96.9 F L Temperature Source Temporal Pulse Rate 100 102 H Respiratory Rate 31 H 36 H Respiratory Effort Labored Respiratory Pattern Tachypnea Blood Pressure 165/91 H Blood Pressure Mean 115 Pulse Ox 100 100 Oxygen Delivery Method Non-Rebreather Non-Rebreather Oxygen Flow Rate (L/min) 15 10 Fraction of Inspired Oxygen (FIO2) 60 05/11/25 20:48 05/11/25 21:19 05/11/25 21:24 Temperature 97.6 F L Temperature Source Axillary Pulse Rate 101 H 101 H 102 H Respiratory Rate 26 H 24 H 26 H Respiratory Effort Respiratory Pattern Tachypnea Blood Pressure 160/66 H 160/66 H Blood Pressure Mean 97 97 Pulse Ox 98 98 Oxygen Delivery Method Bi-pap Bi-pap Oxygen Flow Rate (L/min) 30 Fraction of Inspired Oxygen (FIO2) 40 05/11/25 22:00 05/11/25 22:00 05/11/25 23:00 Temperature 98.0 F 98.9 F Temperature Source Axillary Oral Pulse Rate 100 100 99 Respiratory Rate 20 H 20 H 29 H Respiratory Effort Respiratory Pattern Blood Pressure 165/70 H 165/70 H 168/72 H Blood Pressure Mean 101 101 104 Pulse Ox 94 96 100 Oxygen Delivery Method Bi-pap Bi-pap Nasal Cannula Oxygen Flow Rate (L/min) 30 6 Fraction of Inspired Oxygen (FIO2) 30 05/11/25 23:00 05/11/25 23:00 Temperature Temperature Source Pulse Rate Respiratory Rate Respiratory Effort Respiratory Pattern Blood Pressure 168/72 H Blood Pressure Mean 104 Pulse Ox 96 Oxygen Delivery Method Nasal Cannula Oxygen Flow Rate (L/min) 6 Fraction of Inspired Oxygen (FIO2) MDM MDM MDM Narrative Medical decision making narrative: HISTORY OF PRESENT ILLNESS: Chief complaint: Shortness of breath 80-year-old male history of h lung cancer, A-fib/a flutter (on Eliquis), tachybradycardia syndrome status post pacemaker, heart failure, BPH, CKD, COPD, type 2 diabetes, peripheral vascular disease status post aortofemoral bypass in 2009, recent pacemaker placement presents with syncope. He is currently in the TCU. Notes shortness of breath. Per TCU staff patient was 85% on 4 L. Patient is shortness of breath got worse today. REVIEW OF SYSTEMS: Pertinent positives: Shortness of breath Pertinent negatives: Chest pain PHYSICAL EXAM: Nursing triage notes reviewed, Vital signs reviewed Constitutional: please see mdm HENT: MMM Eyes: Pupils equal round and reactive to light, Extraocular muscles intact Neck: No stridor, no JVD, full neck ROM Lungs: Clear to auscultation, No wheezing or rales. No increased work of breathing, no conversational dyspnea, no accessory muscle use, no nasal flaring. No respiratory distress noted Heart: Regular rate and rhythm, No murmurs, No rubs and No gallops, 2+ distal pulses (radial, femoral, posterior tibial) in all extremities Abdomen: Soft, there is no tenderness, rigidity, rebound or guarding, no obvious peritoneal signs, no palpable pulsatile abdominal masses, no auscultated abdominal bruit : No CVAT Extremities: 1+ pitting edema bilaterally Neuro: No new focal neurological deficits, cranial nerves II through XII intact, 5/5 strength in all present extremities. Intact sensation to light touch in all present extremities, 2+ reflexes bilateral patella tendons. Skin: No rash or lesions noted MEDICAL DECISION MAKING: Chief Complaint: please see [facility] External records reviewed: Pacemaker placed in March 2025 Factors affecting care: as per [facility] Social determinants of health: none History obtained from others: none Consults: Internal medicine (Dr. Lang), critical care goals of care discussion: Patient was Okay with intubation MDM Narrative: Patient was initially hypertensive blood pressure 165/91, tachypneic respiratory 31, saturating 100% on nonrebreather. Significant respiratory distress, conversational dyspnea. He had audible rales as well as auscultated rales throughout his lung johnson. Given his initial increased work of breathing and conversational dyspnea space immediately on BiPAP. I considered the following differential diagnosis: CHF exacerbation, pneumonia, COVID, PE, COPD exacerbation, ACS, arrhythmia, anemia I obtained a broad lab and imaging work to further determine if the patient was suffering from a life-threatening etiology. Given initial tachypnea tachycardia sepsis order set was used to obtain blood cultures and urine culture. ALL IMAGES (IF OBTAINED) HAVE BEEN PERSONALLY REVIEWED AND INTERPRETED BY MYSELF. EKG with normal sinus rhythm, normal axis, long QTc, frequent PVCs, no obvious STEMI VBG with no respiratory acidosis, noted elevated CO2 however normal pH suggest chronic CO2 retention likely secondary to chronic COPD Lactate is wnl indicating no end-organ hypoperfusion and/or hypoxia. Initial troponin elevated consistent with myocardial ischemia likely secondary to demand ischemia from hypoxia COVID/flu/RSV negative Patient's chest x-ray was read reviewed personally myself showed cardiomegaly and bilateral pleural effusions. Overall similar to prior. BNP elevated consistent with volume overload. CBC with no leukocytosis to suggest systemic inflammation, noted chronic anemia, no thrombocytopenia No significant coagulopathy noted BMP without significant electrolyte abnormalities, baseline renal function, no sign of hepatobiliary pathology CT of the chest showed On reassessment patient continued to be tachycardic and tachypneic with respirate #30. BiPAP was continued. Was given sublingual nitroglycerin, 5 mg of IV metoprolol, 40 mg IV Lasix. This improved his vital signs. Upon reassessment is resting comfortably respiratory rate in the high teens, heart rate at 97. Awaiting CTA chest final result. Signed out to overnight physician pending CT result and admission to the PCU. Did discuss case with Dr. Lang. The patient and/or family, caregivers express understanding. The patient and/or family, caregivers agrees with the plan. Shared decision making: I will have a discussion with the patient and or visitors regarding risk/benefits of further testing or admission. They will be made aware of of the risk/benefits inherent in this decision they will be given the opportunity to voice understanding. Total critical care time today provided was at least 60 minutes. This excludes separately billable procedures. Critical care time (if documented) is secondary to the patient having high probability of clinically significant/life threatening deterioration in the patient's condition which required my urgent intervention. Impression: 1. Acute respiratory failure 2. Bilateral pleural effusion 3. History of lung cancer 4. Hypoxia 5. NSTEMI Dispo: Admit to ICU This note was generated with Smart [employer]ube dictation software. It may contain incorrect words, spelling, and punctuation that were not noted in review of the chart prior to signing. Lab Data Labs: Laboratory Results - last 24 hr 05/11/25 05/11/25 05/11/25 20:31 21:15 22:42 WBC 9.9 RBC 3.49 L Hgb 9.7 L Hct 32.0 L MCV 91.7 MCH 27.8 MCHC 30.3 L RDW Std Deviation 53.3 H RDW Coeff of Reggie 16.1 H Plt Count 215 MPV 11.0 Immature Gran % (Auto) 0.500 Neut % (Auto) 77.9 H Lymph % (Auto) 10.3 L [place] % (Auto) 10.0 Eos % (Auto) 0.8 Baso % (Auto) 0.5 Absolute Neuts (auto) 7.7 Absolute Lymphs (auto) 1.02 Nucleated RBC % 0 PT 17.3 H INR 1.4 APTT 39.1 H Sodium 141 Potassium 4.2 Chloride 95 L Carbon Dioxide 35.8 H Anion Gap 10 BUN 25 H Creatinine 1.54 H Estim Creat Clear Calc 34.52 L Est GFR (MDRD) Non-Af 45 L BUN/Creatinine Ratio 16.4 Glucose 204 H Lactic Acid 1.2 Calcium 9.3 Total Bilirubin 0.63 AST 23 ALT 13 Alkaline Phosphatase 92 Troponin T High Sens 88 H* D Troponin T Hi Sens 2 Hr 75 H* NT pro BNP II 4149 H Total Protein 7.7 Albumin 3.6 Globulin 4.1 Albumin/Globulin Ratio 0.9 Urine Color Yellow Urine Clarity Clear Urine pH 6.5 Ur Specific [place] 1.010 Urine Protein 500 H Urine Glucose (UA) 50 H Urine Ketones Negative Urine Occult Blood 25 H Urine Nitrite Negative Urine Bilirubin Negative Urine Urobilinogen Normal Ur Leukocyte Esterase Negative Urine RBC 5-10 SEEN Urine WBC 0-5 SEEN Ur Squamous Epith Cells 0-5 SEEN Urine Bacteria 0 SEEN Hyaline Casts 5-10 SEEN Urine Mucus 0 SEEN ABG Data ABG results: ABG 05/11/25 20:27 Specimen Type ART Sample Site R Radial pH 7.43 Bicarbonate Actual 43.5 H Total CO2 46 Base Excess 19 H O2 Saturation 97 O2 % 15.0 ABG pCO2 65.7 H ABG pO2 96 Jg Test Positive O2 Delivery Device NRB Vent Mode Not entered Radiography Diagnostic Testing: Clinical Impression(s) from Imaging Studies Chest X-Ray 05/11/25 20:57 IMPRESSION: Cardiomegaly with moderate right and small left pleural effusions. Similar to prior. Reading Location: [facility] Discharge Plan Triage Chief Complaint: Shortness of Breath ED Provider: Casper Iniguez Dx/Rx/DC Orders Prescriptions: No Action multivitamin [Daily Multi-Vitamin] Tablet 1 tab PO DAILY pravastatin 20 mg tablet 20 mg PO DAILY Eliquis 5 mg Tablet 2.5 mg PO BID 30 Days Qty: 30 3RF tamsulosin 0.4 mg Capsule 0.4 mg PO DAILY@1730 30 Days Qty: 30 2RF clopidogrel 75 mg tablet 75 mg PO DAILY (DME) OXYGEN - Supplemental ([facility] INFORMATIONAL USE ONLY) Gas See Rx Instructions .ROUTE Patient Comments: 2 lpm at rest, 3 lpm on exertion, 2 lpm at HS DME company: [employer] per CM Rx Instructions: As directed insulin glargine-yfgn 100 unit/mL (3 mL) Insulin Pen 20 unit subcut QHS ipratropium-albuterol 0.5 mg-3 mg(2.5 mg base)/3 mL solution for nebulization 3 ml inhalation Q8H acetaminophen 325 mg Tablet 650 mg PO Q6H PRN PRN (Reason: Pain 1-10 Or Fever>100.7) Qty: 0 0RF albuterol sulfate 2.5 mg /3 mL (0.083 %) Solution For Nebulization 2.5 mg inhalation Q4H PRN (Reason: shortness of breath or wheezing) Qty: 0 0RF midodrine 5 mg Tablet 10 mg PO TIDCM Qty: 0 0RF fludrocortisone 0.1 mg Tablet 0.1 mg PO BID Qty: 0 0RF insulin lispro [Humalog KwikPen Insulin] 100 unit/mL Insulin Pen See Protocol subcut ACHS Qty: 0 0RF Protocol: 3. Sliding Scale Insulin Med Dosing Condition: 150-189 mg/dl = 1 unit Condition: 190-229 mg/dl = 2 units Condition: 230-269 mg/dl = 3 units Condition: 270-309 mg/dl = 4 units Condition: 310-349 mg/dl = 5 units Condition: 350-399 mg/dl = 6 units Condition: 400-449 mg/dl = 7 units Condition: Greater than 449 call physician Protocol Text: Suggested for: - Patients on Total Daily Insulin Dose of 37-55 units - Obese, infected, or steroid patients MEDIUM DOSING ALGORITHIM Glucerna 1.2 Gonzalo 0.06-1.2 gram-kcal/mL Liquid 120 ml PO TIDCM Qty: 0 0RF metoprolol succinate 25 mg tablet extended release 24 hr 12.5 mg PO BID Qty: 90 3RF Primary Care Provider: Luis Johnson Referrals: Luis Johnson DO [Primary Care Provider, Family Practice] Print Language: Citizen [place]
[2025-05-11 20:31] LABS: Allen Test Positive; Base Excess 19 mmol/L (-2 to +2); FI02 15.0; PO2 96 mmHG (75-100); SITE R Radial; SO2 97 % (95-99)
--- NOTE | 2025-05-11 20:57 | RAD_ITS ---
PROCEDURE: CHEST 1 VIEW (PORTABLE) 05/11/2025 REASON FOR EXAM: SHORTNESS OF BREATH TECHNIQUE: Frontal view of the chest. COMPARISON: 04/30/2025 FINDINGS: Devices: Left chest wall dual lead ICD in appropriate positioning. Lungs/Pleura: Moderate right and small left pleural effusions likely with adjacent atelectasis. Pulmonary vascular congestion and interstitial edema. No pneumothorax. Heart/Mediastinum: Cardiomegaly. Evidence of CABG with sternotomy wires and multiple mediastinal surgical clips. Coarse aortic arch and mitral annulus calcification. Bones/Soft tissues: Mild degenerative changes of the spine. RAD/Chest 1 View (Portable) IMPRESSION: Cardiomegaly with moderate right and small left pleural effusions. Similar to prior. Reading Location: [facility]
[2025-05-11 20:58] LABS: Hematocrit 32.0 % (40-54); Hemoglobin 9.7 g/dL (13.0-16.5); Immature Granulocytes Count 0.050 X10^3/uL (0.0-0.0); Mean Corp Hgb Conc 30.3 g/dL (32-36); Mean Corpuscular Volume 91.7 fL (80-94); Mean Platelet Vol. 11.0 fl (6.2-12.0); NRBC Flagged by Analyzer 0 % (0-5); Platelet Count 215 K/mm3 (150-450); RBC Distribution Width CV 16.1 % (11.6-14.6); RBC Distribution Width SD 53.3 fl (35.1-43.9); Red Blood Count 3.49 M/mm3 (4.6-6.2); White Blood Count 9.9 K/mm3 (4.4-11.0)
[2025-05-11 21:13] LABS: Partial Thromboplast Time 39.1 Seconds (24.1-36.2); Prothrombin Time (Protime)PT. 17.3 SECONDS (11.7-14.9)
[2025-05-11 21:19] LABS: AST(SGOT) 23 U/L (<=37); Alanine Aminotransfer ALT/SGPT 13 U/L (<=46); Albumin, Serum 3.6 g/dL (3.4-4.8); Alkaline Phosphatase 92 U/L (40-129); Anion Gap 10 (5-15); BUN 25 mg/dL (4-19); BUN/Creat Ratio 16.4 RATIO (10-20); Calcium,Total 9.3 mg/dL (7.6-11.0); Carbon Dioxide 35.8 mmol/L (21.0-32.0); Chloride 95 mmol/L (98-108); Estimated Creatinine Clearance 34.52 ml/min (50-250); Globulin 4.1 g/dL (2.2-4.2); Glucose 204 mg/dL (70-99); Potassium 4.2 mmol/L (3.3-5.1); Pro- Brain NATRIURETIC PEPTIDE 4149 pg/mL (<=1800)
[2025-05-11 21:33] LABS: Mucous, Urine 0 SEEN /hpf (<or=2+)
[2025-05-11 21:39] LABS: Color, Urine Yellow (Yellow); Glucose, Dipstick 50 mg/dl (Normal); Ketone-Dipstick Negative (Negative); Leukocyte Esterase-Dipstick Negative /ul (Negative); Nitrite-Dipstick Negative (Negative); Occult Blood-Urine 25 /ul (Negative); Protein-Dipstick 500 mg/dl (Negative); Specific Gravity, Urine 1.010 (1.002-1.030); Urine Bilirubin Dipstick Negative (Negative)
--- OUTSIDE RECORDS SUMMARY | 2025-05-11 21:46 | XMS RPT_ITS | CCD ---
Author Organization [facility] Care Team Providers Care Trade Show Manager Name Role Phone Dr. Tonio Fajardo Primary Care Provider [phone] Dr. Tonio Fajardo Referring Provider Dr. Issa Looney Attending Provider [phone] Tonio Fajardo DO Primary Care Provider Dr. Tyrell Uriarte Attending Provider [phone] Tonio Fajardo Primary Care Provider [phone] Dr. Tonio Fajardo Referring Provider Brittny FAMILY NURSE, FAMILY NURSE-C Lorie Attending Provider Dr. Russ Zamora Attending Provider Renard FAMILY NURSE, FAMILY NURSE-C Bonny E Attending Provider [phone] Renard FAMILY NURSE, FAMILY NURSE-C Bonny E Referring Provider Renard FAMILY NURSE, FAMILY NURSE-C Bonny E Other Provider Dr. Srini Choi Attending Provider Dr. Srini Choi Referring Provider Dr. Srini Choi Other Provider Dr. Mateo Shahid Attending Provider Dr. Issa Looney Attending Provider Dr. Kenyon Flores Referring Provider Unava ilable Dr. Srini Choi Referring Provider [phone] Tevin Allen Attending Provider Dr. Tonio Fajardo Primary Care Provider Dr. Tonio Fajardo Referring Provider Dr. Tyrell Uriarte Attending Provider Dr. Issa Looney Attending Provider Dr. Kenyon Flores Referring Provider Unava mp Mart FAMILY NURSE, FAMILY NURSE-C Lorie Attending Provider Dr. Russ Zamora Attending Provider Renard FAMILY NURSE, FAMILY NURSE-C Bonny E Attending Provider [phone] Renard FAMILY NURSE, FAMILY NURSE-C Bonny E Referring Provider Renard FAMILY NURSE, FAMILY NURSE-C Bonny E Other Provider Dr. Srini Choi Attending Provider Dr. Srini Choi Referring Provider Dr. Srini Choi Other Provider Dr. Mateo Shahid Attending Provider Roof FAMILY NURSE, FAMILY NURSE-C Iker Stephens Attending Provider Tonio Fajardo DO A Primary Care Provider STEVEN MELGAR Referring Unavailable TONIO FAJARDO A Primary Care Unavailable TONOI FAJARDO A Primary Care Unavailable Dr. Tonio Fajardo Primary Care Provider [phone] Dr. Tonio Fajardo Referring Provider Dr. Tonio Fajardo Primary Care Provider [phone] Renard FAMILY NURSE, FAMILY NURSE-C Bonny E Attending Provider Renard FAMILY NURSE, FAMILY NURSE-C Bonny E Referring Provider Renard FAMILY NURSE, FAMILY NURSE-C Bonny E Other Provider Dr. Tonio Fajardo Referring Provider Dr. Russ Zamora Attending Provider Dr. Tonio Fajardo Primary Care Provider Dr. Srini Choi Attending Provider Dr. Srini Choi Referring Provider Renard FAMILY NURSE, FAMILY NURSE-C Obnny E Attending Provider Renard FAMILY NURSE, FAMILY NURSE-C Bonny E Referring Provider Renard FAMILY NURSE, FAMILY NURSE-C Bonny E Other Provider Dr. Tonio Fajardo Referring Provider Dr. Russ Zamora Attending Provider Dr. Tonio Fajardo Primary Care Provider Renard FAMILY NURSE, FAMILY NURSE-C Bonny E Attending Provider Renard FAMILY NURSE, FAMILY NURSE-C Bonny E Referring Provider Renard FAMILY NURSE, FAMILY NURSE-C Bonny E Other Provider Dr. Tonio Fajardo Referring Provider Dr. Russ Zamora Attending Provider Dr. Srini Choi Attending Provider Dr. Tyrell Uriarte Attending Provider Dr. Tonio Fajardo Primary Care Provider Renard FAMILY NURSE, FAMILY NURSE-C Bonny E Attending Provider Renard FAMILY NURSE, FAMILY NURSE-C Bonny E Referring Provider Renard FAMILY NURSE, FAMILY NURSE-C Bonny E Other Provider [phone] Dr. Tonio Fajardo Primary Care Provider Renard FAMILY NURSE, FAMILY NURSE-C Bonny E Attending Provider [phone] Renard FAMILY NURSE, FAMILY NURSE-C Bonny E Referring Provider Renard FAMILY NURSE, FAMILY NURSE-C Bonny E Other Provider [phone] Dr. Tonio Fajardo Primary Care Provider Renard FAMILY NURSE, FAMILY NURSE-C Bonny E Attending Provider Renard FAMILY NURSE, FAMILY NURSE-C Bonny E Referring Provider [phone] Renard FAMILY NURSE, FAMILY NURSE-C Bonny E Other Provider Dr. Tonio Fajardo Referring Provider Dr. Tonio Fajardo Primary Care Provider Renard FAMILY NURSE, FAMILY NURSE-C Bonny E Attending Provider [phone] Renard FAMILY NURSE, FAMILY NURSE-C Bonny E Referring Provider [phone] Renard FAMILY NURSE, FAMILY NURSE-C Bonny E Other Provider Dr. Tonio Fajardo Primary Care Provider Renard FAMILY NURSE, FAMILY NURSE-C Bonny E Attending Provider [phone] Renard FAMILY NURSE, FAMILY NURSE-C Bonny E Referring Provider Renard FAMILY NURSE, FAMILY NURSE-C Bonny E Other Provider Dr. Tonio Fajardo Primary Care Provider Renard FAMILY NURSE, FAMILY NURSE-C Bonny E Attending Provider [phone] Renard FAMILY NURSE, FAMILY NURSE-C Bonny E Referring Provider [phone] Renard FAMILY NURSE, FAMILY NURSE-C Bonny E Other Provider Dr. Tonio Fajardo Referring Provider Dr. Russ Zamora Attending Provider Dr. Tonio Fajardo Primary Care Provider Renard FAMILY NURSE, FAMILY NURSE-C Bonny E Attending Provider Renard FAMILY NURSE, FAMILY NURSE-C Bonny E Referring Provider Renard FAMILY NURSE, FAMILY NURSE-C Bonny E Other Provider Dr. Francisco Javier Lozada Attending Provider Dr. Joaquim Suárez Referring Provider Dr. Tonio Fajardo Primary Care Provider Renard FAMILY NURSE, FAMILY NURSE-C Bonny E Attending Provider Renard FAMILY NURSE, FAMILY NURSE-C Bonny E Referring Provider Renard FAMILY NURSE, FAMILY NURSE-C Bonny E Other Provider Dr. Tonio Fajardo Referring Provider Dr. Russ Zamora Attending Provider Dr. Francisco Javier Lozada Attending Provider Dr. Joaquim Suárez Referring Provider Dr. Tonio Fajardo Primary Care Provider [phone] Brittny FAMILY NURSE, FAMILY NURSE-C Lorie Attending Provider RICKIE Alejandra Attending Provider [...] Provider Brittny CAMPUZANO-C, Lorie Attending Provider Brittny FAMILY NURSE-C, Lorie Referring Provider Brittny CAMPUZANO-C, Lorie Other Provider Dr. Tyrell Uriarte DO Attending Provider Scotty , Dr. Elizalde Attending Provider Sera STRATTON, Dr. Solano Attending Provider Sera STRATTON, Dr. Solano Referring Provider Scotty MCGEE, Dr. Elizalde Primary Care Provider Pearce , Dr. Milligan Other Provider Scotty MCGEE, [...] Shadi STRATTON, Dr. Graham Other Provider Michael FAMILY NURSE-C, Iker Stephens Other Provider Corina DAMAIN, Leslie Cruz Other Provider Ariane DAMIAN, Tadeo [...] Provider Shadi STRATTON, Dr. Graham Other Provider [facility] FAMILY NURSE-C, Iker Stephens Other Provider Leslie Alejandra Other Provider Tadeo Fink Other Provider Grzegorz STRATTON, Dr. Leos Other Provider Peter STRATTON, Dr. Amador Attending Provider Dr. Willian Glaser MD Attending Provider Dr. Alex Matias MD Attending Provider Florencio STRATTON, Dr. Johnson Emergency Provider Dr. Tonio Fajardo DO Referring Provider Leslie Alejandra Attending Provider Scotty MCGEE, Dr. Elizalde Attending Provider Leslie Alejandra Referring Provider Carmelina Parra Attending Provider Unavailable Carmelina Parra Referring Provider Unavailable Samm MCGEE, Dr. Jaffe Emergency Provider Lindsey DO, Dr. Petersen Attending Provider Unav simona Looney MD, Dr. Parsons Attending Provider [phone] Manjit STRATTON, Dr. Mays Other Provider Dr. [...] Physician Dr. Daniel Brownlee DO Attending Provider Dr. Valdez Olivo MD, Chi Referring Provider Dr. Casper Iniguez DO Emergency Provider Hira MCGEE, Dr. Shirley Emergency Provider Lady MCGEE, Dr. Ames Admit Provider Lady MCGEE, Dr. Ames Attending Provider Lady MCGEE, Dr. Ames Other Provider Xena MCGEE, Dr. Elizalde Attending Provider Xena MCGEE, Dr. Elizalde Other Provider SUSAN STRATTON, ANS Attending Unavailable HALLIE STRATTON, DR DAVID Ovalle Admitting Unavailable KERMIT STRATTON, ABBI Strauss Consulting Unavailable SCOTTY MCGEE, DR TONIO Ovalle Primary Care Unavailab samm Goddard DO, Dr. Robert Other Provider Elijah FAMILY NURSE-C, Karol Other Provider Graeme FAMILY NURSE-C, Evelia Other Provider Yulia Suh Other Provider Nitza MCGEE, Dr. Robert Attending Provider Nicola Lindsey Admitting Unavailable de Nicola Madison Attending Unavailable de Nicola Madison Consulting Unavailable Scotty, Tonio Primary Care Unavailable Scotty, Tonio Primary Care Unavailable Ayaush, Issa Attending Unavailable Scotty, Tonio Primary Care Unavailable Aayush, [place] Attending Unavailable Scotty, Tonio Primary Care Unavailable Aayush, Issa Attending Unavailable Manjit, Jayaprakas Consulting Unavailable de Nicola Madison Admitting Unavailable Scotty, Tonio Primary Care Unavailable Grzegorz, Deric Attending Unavailable de LosNicola Consulting Unavailable Grzegorz, Deric Consulting Unavailable Scotty, Tonio Primary Care Unavailable Scotty, Tonio Referring Unavailable Carol Sousa Attending Unavailable Scotty, Tonio Primary Care Unavailable Corina DAMIAN, Leslie Cruz Referring Unavail able Corina DAMIAN, Leslie Cruz Attending Unavail able Scotty, Tonio Primary Care Unavailable Jakob Goddard Attending Unavailable Scotty, Tonio Referring Unavailable Corina DAMIAN, Leslie Cruz Attending Unavail able Corina DAMIAN, Leslie Cruz Referring Unavail able Scotty, Tonio Primary Care Unavailable KitNicola pelaez Attending Unavailable Aayush, Issa Consulting Unavailable Nicola Roman Consulting Unavailable KittrellGuySantos Attending Unavailable Scotty, Tonio Primary Care Unavailable FriendJakob Attending Unavailable Scotty, Tonio Referring Unavailable Jakob Goddard Consulting Unavailable Willian Glaser Attending Unavailable Te Ahmed Consulting Unavailable Jabri, Ahmaalxe Consulting Unavailable Mostafa, Nicolette Consulting Unavailable Peter, Marjorie Consulting Unavailable Kiana Vivasndan Consulting Unavailable JoelleOsvaldo sigalau Consulting Unavailable Aayush, Issa Consulting Unavailable Belal, Farouk Consulting Unavailable Willian Glaser Consulting Unavailable Nagajothi, Nagapradee Consulting Unavailabl e Satvinnie, Reinaldo Consulting Unavailable Shadi Santos Consulting Unavailable Iker Rodriguez NP Consulting Unavailable Leslie Alejandra Consulting Unavail able Tadeo Thakkar Consulting Unavailable Grzegorz, Deric Consulting Unavailable Ginette Lantiguash Attending Unavailable Scotty, Tonio Primary Care Unavailable Brittny CAMPUZANO, Lorie Referring Unavailable Tyrell Uriarte Attending Unavailable Lorie Mart NP Consulting Unavailable Leslie Alejandra Referring Unavail able Scotty, Tonio Primary Care Unavailable Aayush, Issa Attending Unavailable Peter, Marjorie Attending Unavailable Scotty, Tonio Primary Care Unavailable Scotty, Tonio Primary Care Unavailable Carol Sousa Attending Unavailable Scotty, Tonio Referring Unavailable Nicola Lindsey Attending Unavailable Scotty, Tonio Primary Care Unavailable Russ Zamora Attending Unavailable Russ Zamora Referring Unavailable Srini Choi Consulting Unavailable Aayush, [place] Attending Unavailable Scotty, Tonio Primary Care Unavailable Aayush, [place] Referring Unavailable Aayush, Issa Attending Unavailable Leslie Alejandra Attending Unavail able Scotty, Tonio Primary Care Unavailable Scotty, Tonio Referring Unavailable Scotty, Tonio Primary Care Unavailable Leslie Alejandra Attending Unavail able Scotty, Tonio Referring Unavailable Scotty, Tonio Referring Unavailable Scotty, Tonio Primary Care Unavailable PraRuss stephens Attending Unavailable Scotty, Tonio Primary Care Unavailable Aayush, Issa Attending Unavailable Scotty, Tonio Primary Care Unavailable Lorie Mart NP Attending Unavailable Scotty, Tonio Referring Unavailable Scotty, Tonio Primary Care Unavailable Kwaku Narayanan Admitting Unavailable Kwaku Narayanan Consulting Unavailable Tonio Mccallum Attending Unavailable Tonio Mccallum Consulting Unavailable Scotty, Tonio Primary Care Unavailable Kwaku Narayanan Attending Unavailable Lady, Kwaku Admitting Unavailable Kwaku Narayanan Consulting Unavailable Marjorie Green Attending Unavailable Scotty, Tonio Primary Care Unavailable Alex Matias Attending Unavailable Russ Zamora Attending Unavailable Prah, Russ Referring Unavailable Scotty, Tonio Primary Care Unavailable Scotty, Tonio Primary Care Unavailable Scotty, Tonio Attending Unavailable Scotty, Tonio Referring Unavailable Scotty, Tonio Primary Care Unavailable Brittny FAMILY NURSE, Lorie Attending Unavailable Brittny FAMILY NURSE, Lorie Referring Unavailable Scotty, Tonio Primary Care Unavailable Daniel Brownlee Attending Unavailable Scotty, Tonio Primary Care Unavailable Deric Lantigua Consulting Unavailable Geovani, Valdez Chi Attending Unavailable Geovani, Valdez Chi Admitting Unavailable Jakob Goddard Consulting Unavailable Karol Nava Consulting Unavailable Evelia Bedolla Consulting Unavailable Yulia Mccormick Consulting Unavailable Scotty, Tonio Primary Care Unavailable Geovani, Valdez Chi Attending Unavailable Geovani, Valdez Chi Referring Unavailable Geovani, Valdez Chi Admitting Unavailable Scotty, Tonio Primary Care Unavailable Geovani, Valdez Chi Admitting Unavailable Geovani, Valdez Chi Attending Unavailable Nicola Lindsey Admitting Unavailable Nicola Lindsey Consulting Unavailable Scotty, Tonio Primary Care Unavailable Ginette Lantiguash Attending Unavailable Paris Tiwari Consulting Unavailable Susan Hawley Consulting Unavailable Nicolette Mcdonald Consulting Unavailable Marjorie Green Consulting Unavailable Martin Vivas Consulting Unavailable Jose Lai Consulting Unavailable Aayush, Issa Consulting Unavailable Chago Miller Consulting Unavailable Willian Glaser Consulting Unavailable Orly Mitchell Consulting UnavailReinaldo Lima Consulting Unavailable Santos Hsu Consulting Unavailable Iker Rodriguez NP Consulting Unavailable Leslie Alejandra Consulting Unavail able Tadeo Thakkar Consulting Unavailable Scotty, Tonio Primary Care Unavailable Kwaku Narayanan Consulting Unavailable Lady, Kwaku Admitting Unavailable Tonio Mccallum Attending Unavailable Davon Saravia Consulting Unavailable Nicola Lindsey Admitting Unavailable Scotty, Tonio Primary Care Unavailable Nicola Roman Attending Unavailable Nicola Lindsey Consulting Unavailable Grzegorz, Deric Consulting Unavailable Aayush, [place] Consulting Unavailable Carmelina Parra Referring Unavailable Tonio Fjaardo Primary Care Unavailable Carmelina Parra Attending Unavailable Tonio Fajardo Primary Care Unavailable Tonio Fajardo Attending Unavailable Tonio Fajardo Primary Care Unavailable Joaquim Suárez Referring Unavailable Joaquim Suárez Attending Unavailable Tonio Fajardo Primary Care Unavailable Joaquim Suárez Attending Unavailable Joaquim Suárez Referring Unavailable Allergies Allergy Classification Reported Allergen(s) Allergy Type Date of Onset Reaction(s) Facility (20 sources) Ibuprofen; Translations: [IBUPROFEN] Drug Allergy 2 Shortness of Breath [facility] Work Phone: (1 source) Ibuprofen Drug Allergy 5 [facility] Repository Medications Current Medications Medication Drug Class(es) [...] 07-25-2023 Start: 04-14-2022 take 1 capsule by [facility] once daily as needed Docusate Sodium (Colace) 100 mg Capsule Active 100 MG PO DAILY NEEDED April 14, 2022 12:00am fish oil/borage/flax/om3,6,9 1 ([facility] 3-6-9 COMPLEX ORAL) (5 sources) fish oil/borage/ flax/om3,6,9 1 (OMEGA 3-6-9 COMPLEX ORAL) Take by mouth. Active fish oil/borage/ flax/om3,6,9 1 (OMEGA 3-6-9 COMPLEX ORAL) Take by mouth. 0 Active Comment on above: Take by mouth. Fish,Bora,Flax Oils-Om3,6,9no1 ([facility] 3-6-9) 1,200 mg Capsule (8 sources) Start: 11-02-2021 take 1 capsule by mouth twice daily Fish,Bora,Flax Oils-Om3,6,9no1 ([facility] 3-6-9) 1,200 mg Capsule Active 1 CAP PO TWICE A DAY November 02, 2021 1:31pm Start: 11-02-2021 take 1 capsule by mo [facility] twice daily Fish,Bora,Flax Oils-Om3,6,9no1 ([facility] 3-6-9) 1,200 mg Capsule Active 1 CAP PO TWICE A DAY November 02, 2021 12:00am fludrocortisone acetate 0.1 mg oral tablet (4 sources) Start: 04-23-2025 furosemide 40 mg oral tablet (13 sources) Loop Diuretic Start: 04-13-2025 Lasix 40 [...] ml insulin lispro 100 unt/ml pen injector (4 sources) Insulin Analog Start: 04-23-2025 Magic Mouth Wash [...] 11-19-2019 midodrine hydrochloride 5 mg oral tablet (4 sources) alpha-Adrenergic Agonist Start: 04-23-2025 Multi-Braden (1 source) [...] 23, 2024 1:00am copd (20 sources) Start: 05-04-2025 Start: 04-23-2025 End: 05-04-2025 Start: 04-23-2025 Start: 04-17-2025 End: 04-23-2025 Start: 04-17-2025 Start: 04-09-2025 Start: 03-09-2025 End: 04-12-2025 Start: 03-09-2025 Start: 10-23-2024 Start: 10-23-2024 End: 03-09-2025 Start: 06-28-2020 Start: 11-19-2019 End: 04-23-2025 Start: 11-19-2019 Start: 06-27-2019 End: 11-19-2019 Start: 03-21-2017 End: 11-19-2019 Start: 12-03-2013 End: 03-21-2017 Completed/Discontinued Medications Medication Drug Class(es) Dates Sig (Normalized) Sig (Original) amoxicillin 500 mg oral tablet (17 sources) Penicillin-class Antibacterial Start: 03-15-2025 End: 04-05-2025 amoxicillin 875 mg / clavulanate 125 mg oral tablet (20 sources) Penicillin-class Antibacterial Start: 01-22-2023 End: 06-08-2023 Amoxicillin-Pot Clavulanate 875-125 mg tablet Discontinued 1 {tbl} PO Q12H 28 14 1 January 22, 2023 12:00am June [...] Clavulanate Discontinued 1 TABLET PO Q12H 28 July 25, 2022 1:00am October 16, 2022 2:32pm Start: 05-24-2022 End: 07-19-2022 Start: 05-24-2022 End: 07-19-2022 Amoxicillin-Pot Clavulanate 875-125 mg tablet Discontinued 1 {tbl} PO Q12H 14 0 May 24, 2022 12:00am July 19, 2022 3:25pm Start: 05-24-2022 End: 07-19-2022 take 1 tablet by mouth every twelve hours Amoxicillin-Pot Clavulanate Discontinued 1 TABLET PO Q12H May 24, 2022 12:00am July 19, 2022 3:25pm apixaban 5 mg oral tablet (20 sources) Factor Xa Inhibitor Start: 07-26-2023 End: 03-09-2025 Start: 07-26-2023 End: 03-09-2025 ascorbic acid 500 mg oral ca psule (20 sources) Vitamin C Start: 08-22-2017 End: 08-23-2017 calcium ascorbate 500 mg ora l tablet (20 sources) Start: 12-03-2013 End: 03-21-2017 cefdinir 300 mg oral capsule (12 sources) Cephalosporin Antibacterial Start: 04-08-2025 End: 04-17-2025 [...] on above: Take 1 capsule by mo [facility] three times daily for [...] hydrochloride 120 mg extended release oral capsule (18 sources) Calcium Channel Josselyn Start: 03-09-2025 End: 04-08-2025 diphenhydrAMINE hydrochloride 25 mg oral capsule (20 sources) Histamine-1 Receptor Antagonist Start: 12-03-2013 End: 03-21-2017 doxycycline hyclate 100 mg oral capsule (20 sources) Tetracycline-class Drug Start: 04-01-2024 End: 09-25-2024 dutasteride 0.5 mg oral capsule (20 sources) 5-alpha Reductase Inhibitor Start: 08-25-2013 End: 11-26-2013 Eucerin topical cream (1 source) Start: 04-17-2025 Eucerin topica l cream Apply 1 katia, Topical, BID, 0 Refill(s), Cream, 71.6 Start Date: 04/17/25 Status: Ordered Medication Dispense Status: Completed Total Allowed Fills: 1 Fills Dispensed: 0 Fish Oil-Fat Acid Comb.8-Hb137 ([facility] 3-6-9 1,200 Mg Softgel) 1,200 MG capsule (20 sources) Start: 12-03-2013 End: 03-21-2017 Fish Oil-Fat Acid Comb.8-Hb137 ([facility] 3-6-9 1,200 Mg Softgel) 1,200 MG capsule Discontinued 1000 MG PO TWICE A DAY December 03, 2013 11:07am March 21, 2017 2:47pm Start: 12-03-2013 End: 03-21-2017 Fish Oil-Fat Acid Comb.8-Hb1 37 ([facility] 3-6-9 1,200 Mg Softgel) 1,200 MG capsule Discontinued 1000 mg PO TWICE A DAY December 03, 2013 12:00am March 21, 2017 2:47pm Start: 12-03-2013 End: 03-21-2017 Fish Oil-Fat Acid Comb.8-Hb1 37 ([facility] 3-6-9 1,200 Mg Softgel) 1,200 MG capsule Discontinued 1000 MG PO TWICE A DAY December 02, 2013 11:00pm March 21, 2017 1:47pm Start: 12-03-2013 End: 03-21-2017 Fish Oil-Fat Acid Comb.8-Hb1 37 ([facility] 3-6-9 1,200 Mg Softgel) 1,200 MG capsule [...] 21, 2017 12:00am November 19, 2019 3:48pm Neppdtdmpqs-Xallvskws-Dggpdp er (20 sources) Start: 02-15-2024 End: 09-25-2024 Start: 02-15-2024 End: 09-25-2024 Prhdnpwcsoy-Knrdvqvgi-Fkzbul er (Trelegy Ellipta) 200-62.5-25 mcg blister with device Discontinued 1 NMA INHALATION DAILY 3 February 15, 2024 12:00am September 25, 2024 2:02pm Start: 02-15-2024 End: 09-25-2024 Iimztaydyld-Gutyfcprr-Ykpjzy er (Trelegy Ellipta) 200-62.5-25 mcg blister with [...] August 25, 2013 10:01am lactobacillus acidophilus 10 [id number] unt oral capsule (20 sources) Start: 05-24-2022 [...] End: 08-25-2013 predniSONE 20 mg oral tablet (12 sources) Start: 04-08-2025 End: 04-17-2025 SITagliptin 50 [...] syndrome; Translations: [Acute kidney failure, unspecified] Onset: 05-06-2025 04-06-2025 Episodic Cancer of bronchus; lung (20 [...] atrioventricular block; Translations: [Atrioventricular block, complete] Onset: 04-13-2025 04-08-2025 Chronic Congestive heart failure; nonhypertensive (20 sources) Acute exacerbation of chronic congestive heart failure; Translations: [Heart failure, unspecified] Onset: 04-03-2025 03-04-2025 Chronic Coronary atherosclerosis and other heart disease (20 sources) Coronary atherosclerosis; Translations: [Atherosclerotic heart disease of ewiiaapaayp coronary artery without angina pectoris] Onset: 04-13-2025 06-28-2020 Chronic Comment on above: CABG x [...] disorders (20 sources) Hyperkalemia; Translations: [Hyperkalemia] Onset: 05-05-2025 03-04-2025 Episodic Genitourinary symptoms and ill-defined conditions [...] fatigue (20 sources) Asthenia; Translations: [Weakness] Onset: 05-05-2025 12-31-2022 Episodic Nutritional deficiencies (20 sources) Undernutrition; Translations: [Unspecified protein-calorie malnutrition] Chronic Osteoarthritis (5 sources) Osteoarthritis; Translations: [Osteoarthrosis, unspecified whether generalized or localized, lower leg] Onset: 04-14-2014 04-14-2014 Chronic Other aftercare (20 sources) Long-term current use of anticoagulant; Translations: [brain wave technician (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 of anticoagulants] 03-04-2025 Episodic Other aftercare (17 sources) Long-term current use of drug therapy; Translations: [brain wave technician (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 of 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/antipl atelets] 03-15-2025 Episodic Other aftercare (1 source) [facility] (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 of anticoagulants; Translations: [[facility] (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 of anticoagulants] Onset: 05-06-2025 Episodic Other circulatory disease (6 sources) Peripheral arterial occlusive disease; Translations: [Disorder of arteries and arterioles, unspecified] 04-23-2025 Chronic Other circulatory disease (1 source) Disorder of arteries and arterioles, unspecified; Translations: [Disorder of arteries and arterioles, unspecified] Onset: 05-05-2025 Chronic Other circulatory disease (1 source) Other specified peripheral vascular diseases; Translations: [Other specified peripheral vascular diseases] Onset: 07-07-2024 Chronic Other circulatory disease (11 sources) Orthostatic hypotension; Translations: [Orthostatic hypotension] 04-19-2025 Episodic Other circulatory disease (1 source) Orthostatic hypotension; Translations: [Orthostatic hypotension] Onset: 05-05-2025 Episodic Other diseases of veins and lymphatics [...] breathing; Translations: [Other abnormalities of breathing] Onset: 05-06-2025 Episodic Other nervous system disorders (1 source) [...] disorders (1 source) Overweight; Translations: [Overweight] Onset: 05-06-2025 Episodic Other screening for suspected conditions (not mental disorders or infectious disease) (20 sources) Raised cardiac enzyme or marker; Translations: [Other specified abnormal findings of blood chemistry] Onset: 04-13-2025 03-04-2025 Episodic Other upper respiratory disease (17 sources) Anterior epistaxis; Translations: [Epistaxis] 03-15-2025 Episodic Other upper respiratory disease (1 source) Epistaxis; Translations: [Epistaxis] Onset: 03-19-2025 Episodic Peripheral and visceral atherosclerosis (20 sources) Peripheral vascular disease; Translations: [Peripheral vascular disease, unspecified] Onset: 04-03-2025 Chronic Pleurisy; pneumothorax; pulmonary collapse (20 sources) Pleural effusion; Translations: [Pleural effusion, not elsewhere classified] Onset: 04-13-2025 03-04-2025 Episodic Pneumonia (except that caused by tuberculosis or sexually transmitted disease) (20 sources) Pneumonia; Translations: [Pneumonia, unspecified organism] Onset: 04-13-2025 04-13-2025 Episodic Residual codes; unclassified (20 sources) Edema of lower extremity; Translations: [Localized edema] 05-22-2020 Episodic Residual codes; unclassified (20 sources) Localized edema; Translations: [Localized edema] 12-21-2021 Episodic Residual codes; unclassified (20 sources) Localized edema; Translations: [Edema] Episodic Respiratory failure; insufficiency; arrest (adult) (20 sources) Chronic hypoxemic respiratory failure; Translations: [Chronic respiratory failure with hypoxia] Onset: 04-13-2025 03-15-2025 Chronic Respiratory failure; insufficiency; arrest (adult) (20 sources) Acute respiratory failure; Translations: [Acute respiratory failure with hypoxia] 04-10-2025 Episodic Septicemia (except in labor) (2 sources) Sepsis; Translations: [Sepsis, unspecified organism] Onset: 04-13-2025 Episodic Substance-related disorders (20 sources) Tobacco dependence in remission; 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, cigarettes, in remission] Chronic Syncope (13 sources) Syncope; Translations: [Syncope and collapse] Onset: 04-30-2025 04-19-2025 Episodic Unclassified (1 source) Acute cough; [...] unspecified; Translations: [Chronic atrial fibrillation, unspecified] Onset: 05-06-2025 Urinary tract infections (20 sources) Urinary tract [...] Range Facility Basic Metabolic Profile (BMP )on 05-11-2025 BUN/CRE 17.4 RATIO Normal 10-20 [facility] Comment on above: Performed By: #### L 500.2500 ####[facility] [address] [place], [address] Calcium [Mass/Vol] 9.1 mg/dL Normal 7.6-11.0 [facility] Comment on above: Performed By: #### L 500.2500 ####[facility] [address] [place], [address] Chloride [Moles/Vol] 95 mmol/L Low 98-108 [facility] Comment on above: Performed By: #### L 500.2500 ####[facility] [address] [place], [address] CO2 [Moles/Vol] 34.9 mmol/L High 21.0-32.0 [facility] Comment on above: Performed By: #### L 500.2500 ####[facility] [address] [place], [address] Creatinine [Mass/Vol] 1.29 mg/dL High 0.70-1.20 [facility] Comment on above: Performed By: #### L 500.2500 ####[facility] [address] [place], [address] ECRCL 41.21 ml/min Low 50-250 [facility] Comment on above: Performed By: #### L 500.2500 ####[facility] [address] [place], [address] GAP 9 Normal 5-15 [facility] Comment on above: Performed By: #### L 500.2500 ####[facility] [address] [place], [address] GFR/1.73 sq M.predicted among non-blacks MDRD (S/P/Bld) [Vol rate/Area] 56 mL/min/{1.73_m2} Low >60 [facility] Comment on above: Result Comment: mL/m in/1.73m2 CKD-EPI Creatinine Equation (2020) Performed By: #### L 500.2500 ####[facility] [address] [place], [address] Glucose [Mass/Vol] 110 mg/dL High 70-99 [facility] Comment on above: Performed By: #### L 500.2500 ####[facility] [address] [place], [address] Potassium [Moles/Vol] 3.8 mmol/L Normal 3.3-5.1 [facility] Comment on above: Performed By: #### L 500.2500 ####[facility] [address] [place], [address] Sodium [Moles/Vol] 139 mmol/L Normal 133-145 [facility] Comment on above: Performed By: #### L 500.2500 ####[facility] [address] [place], [address] Urea nitrogen [Mass/Vol] 23 mg/dL High 4-19 [facility] Comment on above: Performed By: #### L 500.2500 ####[facility] [address] [place], [address] Bedside Glucoseon 05-11-2025 FINGERSTICK GLU 98 mg/dL Normal 74-106 [facility] Comment on above: Result Comment: KODY STRONG OF PATIENT CARE PER NURSING PROTOCOL Performed By: #### L 501.080 ####[facility] [address] [place], [address] Basic Metabolic Profile (BMP )on 05-10-2025 BUN/CRE 16.5 RATIO Normal 10-20 [facility] Comment on above: Performed By: #### L 500.2500 ####[facility] [address] [place], [address] Calcium [Mass/Vol] 8.8 mg/dL Normal 7.6-11.0 [facility] Comment on above: Performed By: #### L 500.2500 ####[facility] [address] [place], [address] Chloride [Moles/Vol] 97 mmol/L Low 98-108 [facility] Comment on above: Performed By: #### L 500.2500 ####[facility] [address] [place], [address] CO2 [Moles/Vol] 36.8 mmol/L High 21.0-32.0 [facility] Comment on above: Performed By: #### L 500.2500 ####[facility] [address] [place], [address] Creatinine [Mass/Vol] 1.33 mg/dL High 0.70-1.20 [facility] Comment on above: Performed By: #### L 500.2500 ####[facility] [address] [place], [address] ECRCL 39.97 ml/min Low 50-250 [facility] Comment on above: Performed By: #### L 500.2500 ####[facility] [address] [place], [address] GAP 8 Normal 5-15 [facility] Comment on above: Performed By: #### L 500.2500 ####[facility] [address] [place], [address] GFR/1.73 sq M.predicted among non-blacks MDRD (S/P/Bld) [Vol rate/Area] 54 mL/min/{1.73_m2} Low >60 [facility] Comment on above: Result Comment: mL/m in/1.73m2 CKD-EPI Creatinine Equation (2020) Performed By: #### L 500.2500 ####[facility] [address] [place] [place], [address] Glucose [Mass/Vol] 92 mg/dL Normal 70-99 [facility] Comment on above: Performed By: #### L 500.2500 ####[facility] [address] [place], [address] Potassium [Moles/Vol] 3.3 mmol/L Normal 3.3-5.1 [facility] Comment on above: Performed By: #### L 500.2500 ####[facility] [address] [place], [address] Sodium [Moles/Vol] 142 mmol/L Normal 133-145 [facility] Comment on above: Performed By: #### L 500.2500 ####[facility] [address] [place], [address] Urea nitrogen [Mass/Vol] 22 mg/dL High 4-19 [facility] Comment on above: Performed By: #### L 500.2500 ####[facility] [address] [place], [address] Bedside Glucoseon 05-10-2025 FINGERSTICK GLU 135 mg/dL High 74-106 [facility] Comment on above: Result Comment: KODY STRONG OF PATIENT CARE PER NURSING PROTOCOL Performed By: #### L 501.080 ####[facility] [address] [place], [address] FINGERSTICK GLU 86 mg/dL Normal 74-106 [facility] Comment on above: Result Comment: KODY STRONG OF PATIENT CARE PER NURSING PROTOCOL Performed By: #### L 501.080 ####[facility] [address] [place], [address] Basic Metabolic Profile (BMP )on 05-09-2025 BUN/CRE 14.3 RATIO Normal - [facility] Comment on above: Performed By: #### L 500.2500 ####[facility] [address] [place], [address] Calcium [Mass/Vol] 8.7 mg/dL Normal 7.6-11.0 [facility] Comment on above: Performed By: #### L 500.2500 ####[facility] [address] [place], [address] Chloride [Moles/Vol] 97 mmol/L Low 98-108 [facility] Comment on above: Performed By: #### L 500.2500 ####[facility] [address] [place], [address] CO2 [Moles/Vol] 39.0 mmol/L High 21.0-32.0 [facility] Comment on above: Performed By: #### L 500.2500 ####[facility] [address] [place], [address] Creatinine [Mass/Vol] 1.36 mg/dL High 0.70-1.20 [facility] Comment on above: Performed By: #### L 500.2500 ####[facility] [address] [place], [address] ECRCL 39.09 ml/min Low 50-250 [facility] Comment on above: Performed By: #### L 500.2500 ####[facility] [address] [place], [address] GAP 6 Normal 5-15 [facility] Comment on above: Performed By: #### L 500.2500 ####[facility] [address] [place], [address] GFR/1.73 sq M.predicted among non-blacks MDRD (S/P/Bld) [Vol rate/Area] 53 mL/min/{1.73_m2} Low >60 [facility] Comment on above: Result Comment: mL/m in/1.73m2 CKD-EPI Creatinine Equation (2020) Performed By: #### L 500.2500 ####[facility] [address] [place], [address] Glucose [Mass/Vol] 81 mg/dL Normal 70-99 [facility] Comment on above: Performed By: #### L 500.2500 ####[facility] [address] [place], [address] Potassium [Moles/Vol] 3.2 mmol/L Low 3.3-5.1 [facility] Comment on above: Performed By: #### L 500.2500 ####[facility] [address] [place], [address] Sodium [Moles/Vol] 142 mmol/L Normal 133-145 [facility] Comment on above: Performed By: #### L 500.2500 ####[facility] [address] [place], [address] Urea nitrogen [Mass/Vol] 20 mg/dL High 4-19 [facility] Comment on above: Performed By: #### L 500.2500 ####[facility] [address] [place], [address] BUN Normal 4-19 [facility] Comment on above: Result Comment: Canc elled via OM: Order cancelled - Patient discharged Performed By: #### L 100.0100, L500.2500 ####[facility] [address] [place], [address] BUN/CRE Normal 10-20 [facility] Comment on above: Result Comment: Canc elled via OM: Order cancelled - Patient discharged Performed By: #### L 100.0100, L500.2500 ####[facility] [address] [place], [address] Calcium Normal 7.6-11.0 [facility] Comment on above: Result Comment: Canc elled via OM: Order cancelled - Patient discharged Performed By: #### L 100.0100, L500.2500 ####[facility] [address] [place], [address] CL Normal 98-108 [facility] Comment on above: Result Comment: Canc elled via OM: Order cancelled - Patient discharged Performed By: #### L 100.0100, L500.2500 ####[facility] [address] [place], [address] CO2 Normal 21.0-32.0 [facility] Comment on above: Result Comment: Canc elled via OM: Order cancelled - Patient discharged Performed By: #### L 100.0100, L500.2500 ####[facility] [address] [place], [address] CREAT,SERUM Normal 0.70-1.20 [facility] Comment on above: Result Comment: Canc elled via OM: Order cancelled - Patient discharged Performed By: #### L 100.0100, L500.2500 ####[facility] [address] [place], [address] eGFR Normal >60 [facility] Comment on above: Result Comment: Canc elled via OM: Order cancelled - Patient discharged Performed By: #### L 100.0100, L500.2500 ####[facility] [address] [place], [address] GAP Normal 5-15 [facility] Comment on above: Result Comment: Canc elled via OM: Order cancelled - Patient discharged Performed By: #### L 100.0100, L500.2500 ####[facility] [address] [place], [address] GLU Normal 70-99 [facility] Comment on above: Result Comment: Canc elled via OM: Order cancelled - Patient discharged Performed By: #### L 100.0100, L500.2500 ####[facility] [address] [place], [address] Potassium Normal 3.3-5.1 [facility] Comment on above: Result Comment: Canc elled via OM: Order cancelled - Patient discharged Performed By: #### L 100.0100, L500.2500 ####[facility] [address] [place], [address] Basic Metabolic Profile (BMP) Normal 133-145 [facility] Comment on above: Result Comment: Canc elled via OM: Order cancelled - Patient discharged Performed By: #### L 100.0100, L500.2500 ####[facility] [address] [place], [address] Bedside Glucoseon 05-09-2025 FINGERSTICK GLU 192 mg/dL High 74-106 [facility] Comment on above: Result Comment: KODY GEMENT OF PATIENT CARE PER NURSING PROTOCOL Performed By: #### L 501.080 ####[facility] [address] [place], [address] FINGERSTICK GLU 82 mg/dL Normal 74-106 [facility] Comment on above: Result Comment: KODY GEMENT OF PATIENT CARE PER NURSING PROTOCOL Performed By: #### L 501.080 ####[facility] [address] [place], [address] FINGERSTICK GLU 75 mg/dL Normal 74-106 [facility] Comment on above: Result Comment: KODY STRONG OF PATIENT CARE PER NURSING PROTOCOL Performed By: #### L 501.080 ####[facility] [address] [place], [address] CBC W/Diff, Automatedon 09-2 0-2024 Absolute Neut Normal 2.0-7.7 [facility] Comment on above: Result Comment: Canc elled via OM: Order cancelled - Patient discharged Performed By: #### L 100.0100, L500.2500 ####[facility] [address] [place], [address] HCT Normal 40-54 [facility] Comment on above: Result Comment: Canc elled via OM: Order cancelled - Patient discharged Performed By: #### L 100.0100, L500.2500 ####[facility] [address] [place], [address] HGB Normal 13.0-16.5 [facility] Comment on above: Result Comment: Canc elled via OM: Order cancelled - Patient discharged Performed By: #### L 100.0100, L500.2500 ####[facility] [address] [place], [address] MCH Normal 27.0-32.0 [facility] Comment on above: Result Comment: Canc elled via OM: Order cancelled - Patient discharged Performed By: #### L 100.0100, L500.2500 ####[facility] [address] [place], [address] MCHC Normal 32-36 [facility] Comment on above: Result Comment: Canc elled via OM: Order cancelled - Patient discharged Performed By: #### L 100.0100, L500.2500 ####[facility] [address] [place], [address] MCV Normal 80-94 [facility] Comment on above: Result Comment: Canc elled via OM: Order cancelled - Patient discharged Performed By: #### L 100.0100, L500.2500 ####[facility] [address] [place], [address] NEUT% Normal 47-70 [facility] Comment on above: Result Comment: Canc elled via OM: Order cancelled - Patient discharged Performed By: #### L 100.0100, L500.2500 ####[facility] [address] [place], [address] PLT Normal 150-450 [facility] Comment on above: Result Comment: Canc elled via OM: Order cancelled - Patient discharged Performed By: #### L 100.0100, L500.2500 ####[facility] [address] [place], [address] RBC Normal 4.6-6.2 [facility] Comment on above: Result Comment: Canc elled via OM: Order cancelled - Patient discharged Performed By: #### L 100.0100, L500.2500 ####[facility] [address] [place], [address] RDW CV Normal 11.6-14.6 [facility] Comment on above: Result Comment: Canc elled via OM: Order cancelled - Patient discharged Performed By: #### L 100.0100, L500.2500 ####[facility] [address] [place], [address] RDW SD Normal 35.1-43.9 [facility] Comment on above: Result Comment: Canc elled via OM: Order cancelled - Patient discharged Performed By: #### L 100.0100, L500.2500 ####[facility] [address] [place], [address] WBC Normal 4.4-11.0 [facility] Comment on above: Result Comment: Canc elled via OM: Order cancelled - Patient discharged Performed By: #### L 100.0100, L500.2500 ####[facility] [address] [place], [address] Basic Metabolic Profile (BMP )on 05-08-2025 BUN/CRE 16.1 RATIO Normal 10-20 [facility] Comment on above: Performed By: #### L 100.0100, L500.2500 ####[facility] [address] [place], [address] Calcium [Mass/Vol] 8.8 mg/dL Normal 7.6-11.0 [facility] Comment on above: Performed By: #### L 100.0100, L500.2500 ####[facility] [address] [place], [address] Chloride [Moles/Vol] 95 mmol/L Low 98-108 [facility] Comment on above: Performed By: #### L 100.0100, L500.2500 ####[facility] [address] [place], [address] CO2 [Moles/Vol] 35.3 mmol/L High 21.0-32.0 [facility] Comment on above: Performed By: #### L 100.0100, L500.2500 ####[facility] [address] [place], [address] Creatinine [Mass/Vol] 1.30 mg/dL High 0.70-1.20 [facility] Comment on above: Performed By: #### L 100.0100, L500.2500 ####[facility] [address] [place], [address] ECRCL 40.90 ml/min Low 50-250 [facility] Comment on above: Performed By: #### L 100.0100, L500.2500 ####[facility] [address] [place], [address] GAP 12 Normal 5-15 [facility] Comment on above: Performed By: #### L 100.0100, L500.2500 ####[facility] [address] [place], [address] GFR/1.73 sq M.predicted among non-blacks MDRD (S/P/Bld) [Vol rate/Area] 56 mL/min/{1.73_m2} Low >60 [facility] Comment on above: Result Comment: mL/m in/1.73m2 CKD-EPI Creatinine Equation (2020) Performed By: #### L 100.0100, L500.2500 ####[facility] [address] [place], [address] Glucose [Mass/Vol] 87 mg/dL Normal 70-99 [facility] Comment on above: Performed By: #### L 100.0100, L500.2500 ####[facility] [address] [place], [address] Potassium [Moles/Vol] 2.7 mmol/L Invalid Interpretation Code 3.3-5.1 [facility] Comment on above: Result Comment: Crit ical Result(s) Called at: 0945 05/08/2025 by: ABNER??Results read back by same. Performed By: #### L 100.0100, L500.2500 ####[facility] [address] [place], [address] Sodium [Moles/Vol] 143 mmol/L Normal 133-145 [facility] Comment on above: Performed By: #### L 100.0100, L500.2500 ####[facility] [address] [place], [address] Urea nitrogen [Mass/Vol] 21 mg/dL High 4-19 [facility] Comment on above: Performed By: #### L 100.0100, L500.2500 ####[facility] [address] [place], [address] BUN Normal 4-19 [facility] Comment on above: Result Comment: Canc elled via OM: Order cancelled - Patient discharged Performed By: #### L 500.2500, L100.0100 ####[facility] [address] [place], [address] BUN/CRE Normal 10-20 [facility] Comment on above: Result Comment: Canc elled via OM: Order cancelled - Patient discharged Performed By: #### L 500.2500, L100.0100 ####[facility] [address] [place], [address] Calcium Normal 7.6-11.0 [facility] Comment on above: Result Comment: Canc elled via OM: Order cancelled - Patient discharged Performed By: #### L 500.2500, L100.0100 ####[facility] [address] [place], [address] CL Normal 98-108 [facility] Comment on above: Result Comment: Canc elled via OM: Order cancelled - Patient discharged Performed By: #### L 500.2500, L100.0100 ####[facility] [address] [place], [address] CO2 Normal 21.0-32.0 [facility] Comment on above: Result Comment: Canc elled via OM: Order cancelled - Patient discharged Performed By: #### L 500.2500, L100.0100 ####[facility] [address] [place], [address] CREAT,SERUM Normal 0.70-1.20 [facility] Comment on above: Result Comment: Canc elled via OM: Order cancelled - Patient discharged Performed By: #### L 500.2500, L100.0100 ####[facility] [address] [place], [address] eGFR Normal >60 [facility] Comment on above: Result Comment: Canc elled via OM: Order cancelled - Patient discharged Performed By: #### L 500.2500, L100.0100 ####[facility] [address] [place], [address] GAP Normal 5-15 [facility] Comment on above: Result Comment: Canc elled via OM: Order cancelled - Patient discharged Performed By: #### L 500.2500, L100.0100 ####[facility] [address] [place], [address] GLU Normal 70-99 [facility] Comment on above: Result Comment: Canc elled via OM: Order cancelled - Patient discharged Performed By: #### L 500.2500, L100.0100 ####[facility] [address] [place], [address] Potassium Normal 3.3-5.1 [facility] Comment on above: Result Comment: Canc elled via OM: Order cancelled - Patient discharged Performed By: #### L 500.2500, L100.0100 ####[facility] [address] [place], [address] Basic Metabolic Profile (BMP) Normal 133-145 [facility] Comment on above: Result Comment: Canc elled via OM: Order cancelled - Patient discharged Performed By: #### L 500.2500, L100.0100 ####[facility] [address] [place], [address] Bedside Glucoseon 05-08-2025 FINGERSTICK GLU 187 mg/dL High 74-106 [facility] Comment on above: Result Comment: KODY GEMENT OF PATIENT CARE PER NURSING PROTOCOL Performed By: #### L 501.080 ####[facility] [address] [place], [address] FINGERSTICK GLU 86 mg/dL Normal 74-106 [facility] Comment on above: Result Comment: KODY GEMENT OF PATIENT CARE PER NURSING PROTOCOL Performed By: #### L 501.080 ####[facility] [address] [place], [address] CBC W/Diff, Automatedon 04-20 Absolute Lymph 0.77 X10 3/uL Low 0.83-4.51 [facility] Comment on above: Performed By: #### L 100.0100, L500.2500 ####[facility] [address] [place], [address] Absolute Neut 4.0 X10 3/uL Normal 2.0-7.7 [facility] Comment on above: Performed By: #### L 100.0100, L500.2500 ####[facility] [address] [place], [address] Basophils/100 WBC (Bld) 0.3 % Normal 0-1 W [facility] Comment on above: Performed By: #### L 100.0100, L500.2500 ####[facility] [address] [place], [address] Eosinophils/100 WBC (Bld) 5.2 % High 0-5 [facility] Comment on above: Performed By: #### L 100.0100, L500.2500 ####[facility] [address] [place], [address] Erythrocyte distribution width (RBC) [Ratio] 15.9 % High 11.6-14.6 [facility] Comment on above: Performed By: #### L 100.0100, L500.2500 ####[facility] [address] [place], [address] Hematocrit (Bld) [Volume fraction] 32.0 % Low 40-54 [facility] Comment on above: Performed By: #### L 100.0100, L500.2500 ####[facility] [address] [place], [address] Hemoglobin (Bld) [Mass/Vol] 9.5 g/dL Low 13.0-16.5 [facility] Comment on above: Performed By: #### L 100.0100, L500.2500 ####[facility] [address] [place], [address] IG% 0.900 Normal 0.0-0.9 [facility] Comment on above: Result Comment: IG% - Immature Granulocytes (promyelocytes, myelocytes andmetamyelocytes) > 1% indicates that a LEFT SHIFT is Present. Performed By: #### L 100.0100, L500.2500 ####[facility] [address] [place], [address] Lymphocytes/100 WBC (Bld) 13.3 % Low 19-41 [facility] Comment on above: Performed By: #### L 100.0100, L500.2500 ####[facility] [address] [place], [address] MCH (RBC) [Entitic mass] 27.1 pg Normal 27.0-32.0 [facility] Comment on above: Performed By: #### L 100.0100, L500.2500 ####[facility] [address] [place], [address] MCHC (RBC) [Mass/Vol] 29.7 g/dL Low 32-36 [facility] Comment on above: Performed By: #### L 100.0100, L500.2500 ####[facility] [address] [place], [address] MCV (RBC) [Entitic vol] 91.4 fL Normal 80-94 [facility] Comment on above: Performed By: #### L 100.0100, L500.2500 ####[facility] [address] [place], [address] Monocytes/100 WBC (Bld) 12.0 % High 0-10 W [facility] Comment on above: Performed By: #### L 100.0100, L500.2500 ####[facility] [address] [place], [address] Neutrophils/100 WBC (Bld) 68.3 % Normal 47-70 [facility] Comment on above: Performed By: #### L 100.0100, L500.2500 ####[facility] [address] [place], [address] Nucleated RBC (Bld) [#/Vol] 0 10*3/uL Normal 0-5 [facility] Comment on above: Performed By: #### L 100.0100, L500.2500 ####[facility] [address] [place], [address] Platelet mean volume (Bld) [Entitic vol] 10.0 fL Normal 6.2-12.0 [facility] Comment on above: Performed By: #### L 100.0100, L500.2500 ####[facility] [address] [place], [address] Platelets (Bld) [#/Vol] 170 10*3/uL Normal 150-450 [facility] Comment on above: Performed By: #### L 100.0100, L500.2500 ####[facility] [address] [place], [address] RBC (Bld) [#/Vol] 3.50 10*6/uL Low 4.6-6.2 [facility] Comment on above: Performed By: #### L 100.0100, L500.2500 ####[facility] [address] [place], [address] RDW SD 53.2 fl High 35.1-43.9 [facility] Comment on above: Performed By: #### L 100.0100, L500.2500 ####[facility] [address] [place], [address] WBC (Bld) [#/Vol] 5.8 10*3/uL Normal 4.4-11.0 [facility] Comment on above: Performed By: #### L 100.0100, L500.2500 ####[facility] [address] [place], [address] Absolute Neut Normal 2.0-7.7 [facility] Comment on above: Result Comment: Canc elled via OM: Order cancelled - Patient discharged Performed By: #### L 500.2500, L100.0100 ####[facility] [address] [place], [address] HCT Normal 40-54 [facility] Comment on above: Result Comment: Canc elled via OM: Order cancelled - Patient discharged Performed By: #### L 500.2500, L100.0100 ####[facility] [address] [place], [address] HGB Normal 13.0-16.5 [facility] Comment on above: Result Comment: Canc elled via OM: Order cancelled - Patient discharged Performed By: #### L 500.2500, L100.0100 ####[facility] [address] [place], [address] MCH Normal 27.0-32.0 [facility] Comment on above: Result Comment: Canc elled via OM: Order cancelled - Patient discharged Performed By: #### L 500.2500, L100.0100 ####[facility] [address] [place], [address] MCHC Normal 32-36 [facility] Comment on above: Result Comment: Canc elled via OM: Order cancelled - Patient discharged Performed By: #### L 500.2500, L100.0100 ####[facility] [address] [place], [address] MCV Normal 80-94 [facility] Comment on above: Result Comment: Canc elled via OM: Order cancelled - Patient discharged Performed By: #### L 500.2500, L100.0100 ####[facility] [address] [place], [address] NEUT% Normal 47-70 [facility] Comment on above: Result Comment: Canc elled via OM: Order cancelled - Patient discharged Performed By: #### L 500.2500, L100.0100 ####[facility] [address] [place], [address] PLT Normal 150-450 [facility] Comment on above: Result Comment: Canc elled via OM: Order cancelled - Patient discharged Performed By: #### L 500.2500, L100.0100 ####[facility] [address] [place], [address] RBC Normal 4.6-6.2 [facility] Comment on above: Result Comment: Canc elled via OM: Order cancelled - Patient discharged Performed By: #### L 500.2500, L100.0100 ####[facility] [address] [place], [address] RDW CV Normal 11.6-14.6 [facility] Comment on above: Result Comment: Canc elled via OM: Order cancelled - Patient discharged Performed By: #### L 500.2500, L100.0100 ####[facility] [address] [place], [address] RDW SD Normal 35.1-43.9 [facility] Comment on above: Result Comment: Canc elled via OM: Order cancelled - Patient discharged Performed By: #### L 500.2500, L100.0100 ####[facility] [address] [place], [address] WBC Normal 4.4-11.0 [facility] Comment on above: Result Comment: Canc elled via OM: Order cancelled - Patient discharged Performed By: #### L 500.2500, L100.0100 ####[facility] [address] [place], [address] Basic Metabolic Profile (BMP )on 05-07-2025 BUN Normal 4-19 [facility] Comment on above: Result Comment: Canc elled via OM: Order cancelled - Patient discharged Performed By: #### L 500.2500, L100.0100 ####[facility] [address] [place], [address] BUN/CRE Normal 10-20 [facility] Comment on above: Result Comment: Canc elled via OM: Order cancelled - Patient discharged Performed By: #### L 500.2500, L100.0100 ####[facility] [address] [place], [address] Calcium Normal 7.6-11.0 [facility] Comment on above: Result Comment: Canc elled via OM: Order cancelled - Patient discharged Performed By: #### L 500.2500, L100.0100 ####[facility] [address] [place], [address] CL Normal 98-108 [facility] Comment on above: Result Comment: Canc elled via OM: Order cancelled - Patient discharged Performed By: #### L 500.2500, L100.0100 ####[facility] [address] [place], [address] CO2 Normal 21.0-32.0 [facility] Comment on above: Result Comment: Canc elled via OM: Order cancelled - Patient discharged Performed By: #### L 500.2500, L100.0100 ####[facility] [address] [place], [address] CREAT,SERUM Normal 0.70-1.20 [facility] Comment on above: Result Comment: Canc elled via OM: Order cancelled - Patient discharged Performed By: #### L 500.2500, L100.0100 ####[facility] [address] [place], [address] eGFR Normal >60 [facility] Comment on above: Result Comment: Canc elled via OM: Order cancelled - Patient discharged Performed By: #### L 500.2500, L100.0100 ####[facility] [address] [place], [address] GAP Normal 5-15 [facility] Comment on above: Result Comment: Canc elled via OM: Order cancelled - Patient discharged Performed By: #### L 500.2500, L100.0100 ####[facility] [address] [place], [address] GLU Normal 70-99 [facility] Comment on above: Result Comment: Canc elled via OM: Order cancelled - Patient discharged Performed By: #### L 500.2500, L100.0100 ####[facility] [address] [place], [address] Potassium Normal 3.3-5.1 [facility] Comment on above: Result Comment: Canc elled via OM: Order cancelled - Patient discharged Performed By: #### L 500.2500, L100.0100 ####[facility] [address] [place], [address] Basic Metabolic Profile (BMP) Normal 133-145 [facility] Comment on above: Result Comment: Canc elled via OM: Order cancelled - Patient discharged Performed By: #### L 500.2500, L100.0100 ####[facility] [address] [place], [address] Bedside Glucoseon 05-07-2025 FINGERSTICK GLU 195 mg/dL High 74-106 [facility] Comment on above: Result Comment: KODY STRONG OF PATIENT CARE PER NURSING PROTOCOL Performed By: #### L 501.080 ####[facility] [address] [place], [address] FINGERSTICK GLU 93 mg/dL Normal 74-106 [facility] Comment on above: Result Comment: KODY GEMENT OF PATIENT CARE PER NURSING PROTOCOL Performed By: #### L 501.080 ####[facility] [address] [place], [address] FINGERSTICK GLU 115 mg/dL High 74-106 [facility] Comment on above: Result Comment: KODY GEMENT OF PATIENT CARE PER NURSING PROTOCOL Performed By: #### L 501.080 ####[facility] [address] [place], [address] CBC W/Diff, Automatedon 04-20 Absolute Neut Normal 2.0-7.7 [facility] Comment on above: Result Comment: Canc elled via OM: Order cancelled - Patient discharged Performed By: #### L 500.2500, L100.0100 ####[facility] [address] [place], [address] HCT Normal 40-54 [facility] Comment on above: Result Comment: Canc elled via OM: Order cancelled - Patient discharged Performed By: #### L 500.2500, L100.0100 ####[facility] [address] [place], [address] HGB Normal 13.0-16.5 [facility] Comment on above: Result Comment: Canc elled via OM: Order cancelled - Patient discharged Performed By: #### L 500.2500, L100.0100 ####[facility] [address] [place], [address] MCH Normal 27.0-32.0 [facility] Comment on above: Result Comment: Canc elled via OM: Order cancelled - Patient discharged Performed By: #### L 500.2500, L100.0100 ####[facility] [address] [place], [address] MCHC Normal 32-36 [facility] Comment on above: Result Comment: Canc elled via OM: Order cancelled - Patient discharged Performed By: #### L 500.2500, L100.0100 ####[facility] [address] [place], [address] MCV Normal 80-94 [facility] Comment on above: Result Comment: Canc elled via OM: Order cancelled - Patient discharged Performed By: #### L 500.2500, L100.0100 ####[facility] [address] [place], [address] NEUT% Normal 47-70 [facility] Comment on above: Result Comment: Canc elled via OM: Order cancelled - Patient discharged Performed By: #### L 500.2500, L100.0100 ####[facility] [address] [place], [address] PLT Normal 150-450 [facility] Comment on above: Result Comment: Canc elled via OM: Order cancelled - Patient discharged Performed By: #### L 500.2500, L100.0100 ####[facility] [address] [place], [address] RBC Normal 4.6-6.2 [facility] Comment on above: Result Comment: Canc elled via OM: Order cancelled - Patient discharged Performed By: #### L 500.2500, L100.0100 ####[facility] [address] [place], [address] RDW CV Normal 11.6-14.6 [facility] Comment on above: Result Comment: Canc elled via OM: Order cancelled - Patient discharged Performed By: #### L 500.2500, L100.0100 ####[facility] [address] [place], [address] RDW SD Normal 35.1-43.9 [facility] Comment on above: Result Comment: Canc elled via OM: Order cancelled - Patient discharged Performed By: #### L 500.2500, L100.0100 ####[facility] [address] [place], [address] WBC Normal 4.4-11.0 [facility] Comment on above: Result Comment: Canc elled via OM: Order cancelled - Patient discharged Performed By: #### L 500.2500, L100.0100 ####[facility] [address] [place], [address] Basic Metabolic Profile (BMP )on 05-06-2025 BUN Normal 4-19 [facility] Comment on above: Result Comment: Canc elled via OM: Order cancelled - Patient discharged Performed By: #### L 500.2500, L100.0100 ####[facility] [address] [place], [address] BUN/CRE Normal 10-20 [facility] Comment on above: Result Comment: Canc elled via OM: Order cancelled - Patient discharged Performed By: #### L 500.2500, L100.0100 ####[facility] [address] [place], [address] Calcium Normal 7.6-11.0 [facility] Comment on above: Result Comment: Canc elled via OM: Order cancelled - Patient discharged Performed By: #### L 500.2500, L100.0100 ####[facility] [address] [place], [address] CL Normal 98-108 [facility] Comment on above: Result Comment: Canc elled via OM: Order cancelled - Patient discharged Performed By: #### L 500.2500, L100.0100 ####[facility] [address] [place], [address] CO2 Normal 21.0-32.0 [facility] Comment on above: Result Comment: Canc elled via OM: Order cancelled - Patient discharged Performed By: #### L 500.2500, L100.0100 ####[facility] [address] [place], [address] CREAT,SERUM Normal 0.70-1.20 [facility] Comment on above: Result Comment: Canc elled via OM: Order cancelled - Patient discharged Performed By: #### L 500.2500, L100.0100 ####[facility] [address] [place], [address] eGFR Normal >60 [facility] Comment on above: Result Comment: Canc elled via OM: Order cancelled - Patient discharged Performed By: #### L 500.2500, L100.0100 ####[facility] [address] [place], [address] GAP Normal 5-15 [facility] Comment on above: Result Comment: Canc elled via OM: Order cancelled - Patient discharged Performed By: #### L 500.2500, L100.0100 ####[facility] [address] [place], [address] GLU Normal 70-99 [facility] Comment on above: Result Comment: Canc elled via OM: Order cancelled - Patient discharged Performed By: #### L 500.2500, L100.0100 ####[facility] [address] [place], [address] Potassium Normal 3.3-5.1 [facility] Comment on above: Result Comment: Canc elled via OM: Order cancelled - Patient discharged Performed By: #### L 500.2500, L100.0100 ####[facility] [address] [place], [address] Basic Metabolic Profile (BMP) Normal 133-145 [facility] Comment on above: Result Comment: Canc elled via OM: Order cancelled - Patient discharged Performed By: #### L 500.2500, L100.0100 ####[facility] [address] [place], [address] Bedside Glucoseon 05-06-2025 FINGERSTICK GLU 173 mg/dL High 74-106 [facility] Comment on above: Result Comment: KODY GEMENT OF PATIENT CARE PER NURSING PROTOCOL Performed By: #### L 501.080 ####[facility] [address] [place], [address] FINGERSTICK GLU 219 mg/dL High 74-106 [facility] Comment on above: Result Comment: KODY GEMENT OF PATIENT CARE PER NURSING PROTOCOL Performed By: #### L 501.080 ####[facility] [address] [place], [address] FINGERSTICK GLU 87 mg/dL Normal 74-106 [facility] Comment on above: Result Comment: KODY GEMENT OF PATIENT CARE PER NURSING PROTOCOL Performed By: #### L 501.080 ####[facility] [address] [place], [address] CBC W/Diff, Automatedon 04-20 Absolute Neut Normal 2.0-7.7 [facility] Comment on above: Result Comment: Canc elled via OM: Order cancelled - Patient discharged Performed By: #### L 500.2500, L100.0100 ####[facility] [address] [place], [address] HCT Normal 40-54 [facility] Comment on above: Result Comment: Canc elled via OM: Order cancelled - Patient discharged Performed By: #### L 500.2500, L100.0100 ####[facility] [address] [place], [address] HGB Normal 13.0-16.5 [facility] Comment on above: Result Comment: Canc elled via OM: Order cancelled - Patient discharged Performed By: #### L 500.2500, L100.0100 ####[facility] [address] [place], [address] MCH Normal 27.0-32.0 [facility] Comment on above: Result Comment: Canc elled via OM: Order cancelled - Patient discharged Performed By: #### L 500.2500, L100.0100 ####[facility] [address] [place], [address] MCHC Normal 32-36 [facility] Comment on above: Result Comment: Canc elled via OM: Order cancelled - Patient discharged Performed By: #### L 500.2500, L100.0100 ####[facility] [address] [place], [address] MCV Normal 80-94 [facility] Comment on above: Result Comment: Canc elled via OM: Order cancelled - Patient discharged Performed By: #### L 500.2500, L100.0100 ####[facility] [address] [place], [address] NEUT% Normal 47-70 [facility] Comment on above: Result Comment: Canc elled via OM: Order cancelled - Patient discharged Performed By: #### L 500.2500, L100.0100 ####[facility] [address] [place], [address] PLT Normal 150-450 [facility] Comment on above: Result Comment: Canc elled via OM: Order cancelled - Patient discharged Performed By: #### L 500.2500, L100.0100 ####[facility] [address] [place], [address] RBC Normal 4.6-6.2 [facility] Comment on above: Result Comment: Canc elled via OM: Order cancelled - Patient discharged Performed By: #### L 500.2500, L100.0100 ####[facility] [address] [place], [address] RDW CV Normal 11.6-14.6 [facility] Comment on above: Result Comment: Canc elled via OM: Order cancelled - Patient discharged Performed By: #### L 500.2500, L100.0100 ####[facility] [address] [place], [address] RDW SD Normal 35.1-43.9 [facility] Comment on above: Result Comment: Canc elled via OM: Order cancelled - Patient discharged Performed By: #### L 500.2500, L100.0100 ####[facility] [address] [place], [address] WBC Normal 4.4-11.0 [facility] Comment on above: Result Comment: Canc elled via OM: Order cancelled - Patient discharged Performed By: #### L 500.2500, L100.0100 ####[facility] [address] [place], [address] Basic Metabolic Profile (BMP )on 05-05-2025 BUN Normal 4-19 [facility] Comment on above: Result Comment: Canc elled via OM: Order cancelled - Patient discharged Performed By: #### L 500.2500, L100.0100 ####[facility] [address] [place], [address] BUN/CRE Normal 10-20 [facility] Comment on above: Result Comment: Canc elled via OM: Order cancelled - Patient discharged Performed By: #### L 500.2500, L100.0100 ####[facility] [address] [place], [address] Calcium Normal 7.6-11.0 [facility] Comment on above: Result Comment: Canc elled via OM: Order cancelled - Patient discharged Performed By: #### L 500.2500, L100.0100 ####[facility] [address], [address] CL Normal 98-108 [facility] Comment on above: Result Comment: Canc elled via OM: Order cancelled - Patient discharged Performed By: #### L 500.2500, L100.0100 ####[facility] [address] [place], [address] CO2 Normal 21.0-32.0 [facility] Comment on above: Result Comment: Canc elled via OM: Order cancelled - Patient discharged Performed By: #### L 500.2500, L100.0100 ####[facility] [address] [place], [address] CREAT,SERUM Normal 0.70-1.20 [facility] Comment on above: Result Comment: Canc elled via OM: Order cancelled - Patient discharged Performed By: #### L 500.2500, L100.0100 ####[facility] [address] [place], [address] eGFR Normal >60 [facility] Comment on above: Result Comment: Canc elled via OM: Order cancelled - Patient discharged Performed By: #### L 500.2500, L100.0100 ####[facility] [address] [place], [address] GAP Normal 5-15 [facility] Comment on above: Result Comment: Canc elled via OM: Order cancelled - Patient discharged Performed By: #### L 500.2500, L100.0100 ####[facility] [address] [place], [address] GLU Normal 70-99 [facility] Comment on above: Result Comment: Canc elled via OM: Order cancelled - Patient discharged Performed By: #### L 500.2500, L100.0100 ####[facility] [address] [place], [address] Potassium Normal 3.3-5.1 [facility] Comment on above: Result Comment: Canc elled via OM: Order cancelled - Patient discharged Performed By: #### L 500.2500, L100.0100 ####[facility] [address] [place], [address] Basic Metabolic Profile (BMP) Normal 133-145 [facility] Comment on above: Result Comment: Canc elled via OM: Order cancelled - Patient discharged Performed By: #### L 500.2500, L100.0100 ####[facility] [address] [place], [address] Bedside Glucoseon 05-05-2024 FINGERSTICK GLU 134 mg/dL High 74-106 [facility] Comment on above: Result Comment: KODY GEMENT OF PATIENT CARE PER NURSING PROTOCOL Performed By: #### L 501.080 ####[facility] [address] [place], [address] FINGERSTICK GLU 92 mg/dL Normal 74-106 [facility] Comment on above: Result Comment: KODY GEMENT OF PATIENT CARE PER NURSING PROTOCOL Performed By: #### L 501.080 ####[facility] [address] [place], [address] CBC W/Diff, Automatedon - Absolute Neut Normal 2.0-7.7 [facility] Comment on above: Result Comment: Canc elled via OM: Order cancelled - Patient discharged Performed By: #### L 500.2500, L100.0100 ####[facility] [address] [place], [address] HCT Normal 40-54 [facility] Comment on above: Result Comment: Canc elled via OM: Order cancelled - Patient discharged Performed By: #### L 500.2500, L100.0100 ####[facility] [address] [place], [address] HGB Normal 13.0-16.5 [facility] Comment on above: Result Comment: Canc elled via OM: Order cancelled - Patient discharged Performed By: #### L 500.2500, L100.0100 ####[facility] [address] [place], [address] MCH Normal 27.0-32.0 [facility] Comment on above: Result Comment: Canc elled via OM: Order cancelled - Patient discharged Performed By: #### L 500.2500, L100.0100 ####[facility] [address] [place], [address] MCHC Normal 32-36 [facility] Comment on above: Result Comment: Canc elled via OM: Order cancelled - Patient discharged Performed By: #### L 500.2500, L100.0100 ####[facility] [address] [place], [address] MCV Normal 80-94 [facility] Comment on above: Result Comment: Canc elled via OM: Order cancelled - Patient discharged Performed By: #### L 500.2500, L100.0100 ####[facility] [address] [place], [address] NEUT% Normal 47-70 [facility] Comment on above: Result Comment: Canc elled via OM: Order cancelled - Patient discharged Performed By: #### L 500.2500, L100.0100 ####[facility] [address] [place], [address] PLT Normal 150-450 [facility] Comment on above: Result Comment: Canc elled via OM: Order cancelled - Patient discharged Performed By: #### L 500.2500, L100.0100 ####[facility] [address] [place], [address] RBC Normal 4.6-6.2 [facility] Comment on above: Result Comment: Canc elled via OM: Order cancelled - Patient discharged Performed By: #### L 500.2500, L100.0100 ####[facility] [address] [place], [address] RDW CV Normal 11.6-14.6 [facility] Comment on above: Result Comment: Canc elled via OM: Order cancelled - Patient discharged Performed By: #### L 500.2500, L100.0100 ####[facility] [address] [place], [address] RDW SD Normal 35.1-43.9 [facility] Comment on above: Result Comment: Canc elled via OM: Order cancelled - Patient discharged Performed By: #### L 500.2500, L100.0100 ####[facility] [address] [place], [address] WBC Normal 4.4-11.0 [facility] Comment on above: Result Comment: Canc elled via OM: Order cancelled - Patient discharged Performed By: #### L 500.2500, L100.0100 ####[facility] [address] [place], [address] Basic Metabolic Profile (BMP )on 05-04-2025 BUN Normal 4-19 [facility] Comment on above: Result Comment: Canc elled via OM: Order cancelled - Patient discharged Performed By: #### L 500.2500, L100.0100 ####[facility] [address] [place], [address] BUN/CRE Normal 10-20 [facility] Comment on above: Result Comment: Canc elled via OM: Order cancelled - Patient discharged Performed By: #### L 500.2500, L100.0100 ####[facility] [address] [place], [address] Calcium Normal 7.6-11.0 [facility] Comment on above: Result Comment: Canc elled via OM: Order cancelled - Patient discharged Performed By: #### L 500.2500, L100.0100 ####[facility] [address] [place], [address] CL Normal 98-108 [facility] Comment on above: Result Comment: Canc elled via OM: Order cancelled - Patient discharged Performed By: #### L 500.2500, L100.0100 ####[facility] [address] [place], [address] CO2 Normal 21.0-32.0 [facility] Comment on above: Result Comment: Canc elled via OM: Order cancelled - Patient discharged Performed By: #### L 500.2500, L100.0100 ####[facility] [address] [place], [address] CREAT,SERUM Normal 0.70-1.20 [facility] Comment on above: Result Comment: Canc elled via OM: Order cancelled - Patient discharged Performed By: #### L 500.2500, L100.0100 ####[facility] [address] [place], [address] eGFR Normal >60 [facility] Comment on above: Result Comment: Canc elled via OM: Order cancelled - Patient discharged Performed By: #### L 500.2500, L100.0100 ####[facility] [address] [place], [address] GAP Normal 5-15 [facility] Comment on above: Result Comment: Canc elled via OM: Order cancelled - Patient discharged Performed By: #### L 500.2500, L100.0100 ####[facility] [address] [place], [address] GLU Normal 70-99 [facility] Comment on above: Result Comment: Canc elled via OM: Order cancelled - Patient discharged Performed By: #### L 500.2500, L100.0100 ####[facility] [address] [place], [address] Potassium Normal 3.3-5.1 [facility] Comment on above: Result Comment: Canc elled via OM: Order cancelled - Patient discharged Performed By: #### L 500.2500, L100.0100 ####[facility] [address] [place], [address] Basic Metabolic Profile (BMP) Normal 133-145 [facility] Comment on above: Result Comment: Canc elled via OM: Order cancelled - Patient discharged Performed By: #### L 500.2500, L100.0100 ####[facility] [address] [place], [address] Bedside Glucoseon 05-04-2024 FINGERSTICK GLU 193 mg/dL High 74-106 [facility] Comment on above: Result Comment: KODY GEMENT OF PATIENT CARE PER NURSING PROTOCOL Performed By: #### L 501.080 ####[facility] [address] [place], [address] FINGERSTICK GLU 81 mg/dL Normal 74-106 [facility] Comment on above: Result Comment: KODY GEMENT OF PATIENT CARE PER NURSING PROTOCOL Performed By: #### L 501.080 ####[facility] [address] [place], [address] CBC W/Diff, Automatedon - Absolute Neut Normal 2.0-7.7 [facility] Comment on above: Result Comment: Canc elled via OM: Order cancelled - Patient discharged Performed By: #### L 500.2500, L100.0100 ####[facility] [address] [place], [address] HCT Normal 40-54 [facility] Comment on above: Result Comment: Canc elled via OM: Order cancelled - Patient discharged Performed By: #### L 500.2500, L100.0100 ####[facility] [address] [place], [address] HGB Normal 13.0-16.5 [facility] Comment on above: Result Comment: Canc elled via OM: Order cancelled - Patient discharged Performed By: #### L 500.2500, L100.0100 ####[facility] [address] [place], [address] MCH Normal 27.0-32.0 [facility] Comment on above: Result Comment: Canc elled via OM: Order cancelled - Patient discharged Performed By: #### L 500.2500, L100.0100 ####[facility] [address] [place], [address] MCHC Normal 32-36 [facility] Comment on above: Result Comment: Canc elled via OM: Order cancelled - Patient discharged Performed By: #### L 500.2500, L100.0100 ####[facility] [address] [place], [address] MCV Normal 80-94 [facility] Comment on above: Result Comment: Canc elled via OM: Order cancelled - Patient discharged Performed By: #### L 500.2500, L100.0100 ####[facility] [address] [place], [address] NEUT% Normal 47-70 [facility] Comment on above: Result Comment: Canc elled via OM: Order cancelled - Patient discharged Performed By: #### L 500.2500, L100.0100 ####[facility] [address] [place], [address] PLT Normal 150-450 [facility] Comment on above: Result Comment: Canc elled via OM: Order cancelled - Patient discharged Performed By: #### L 500.2500, L100.0100 ####[facility] [address] [place], [address] RBC Normal 4.6-6.2 [facility] Comment on above: Result Comment: Canc elled via OM: Order cancelled - Patient discharged Performed By: #### L 500.2500, L100.0100 ####[facility] [address] [place], [address] RDW CV Normal 11.6-14.6 [facility] Comment on above: Result Comment: Canc elled via OM: Order cancelled - Patient discharged Performed By: #### L 500.2500, L100.0100 ####[facility] [address] [place], [address] RDW SD Normal 35.1-43.9 [facility] Comment on above: Result Comment: Canc elled via OM: Order cancelled - Patient discharged Performed By: #### L 500.2500, L100.0100 ####[facility] [address] [place], [address] WBC Normal 4.4-11.0 [facility] Comment on above: Result Comment: Canc elled via OM: Order cancelled - Patient discharged Performed By: #### L 500.2500, L100.0100 ####[facility] [address] [place], [address] EGD Reporton 05-04-2025 EGD Report Normal [facility] Glucose measurement at [facility] deOrdered By: Jakob Goddard on 05-04-2025 Glucose [Mass/Vol] 193 mg/dL High 74-106 [facility] Glucose measurement at [facility] deOrdered By: Valdez Olivo on 05-04-2025 Glucose [Mass/Vol] 81 mg/dL 74-106 [facility] HH, Hemoglobin AND Hematocri ton 05-04-2025 Hematocrit (Bld) [Volume fraction] 31.9 % Low 40-54 [facility] Comment on above: Performed By: #### L 100.0600 ####[facility] [address] [place], [address] Hemoglobin (Bld) [Mass/Vol] 9.7 g/dL Low 13.0-16.5 [facility] Comment on above: Performed By: #### L 100.0600 ####[facility] [address] [place], [address] Hematocrit Auto (Bld) [Volum e fraction]Ordered By: Valdez Olivo on 05-04-2025 Hematocrit (Bld) [Volume fraction] 31.9 % Low 40-54 [facility] Hemoglobin measurementOrdere d By: Valdez Olivo on 05-04-2025 Hemoglobin (Bld) [Mass/Vol] 9.7 g/dL Low 13.0-16.5 [facility] MR/OP.PROVATon 05-04-2025 MR/OP.PROVAT Normal [facility] MR/POSTOP.ANEon 05-04-2025 MR/POSTOP.ANE Normal [facility] MR/SYCKHLFD0fq 05-04-2025 MR/POSTOPAN2 Normal [facility] Bedside Glucoseon 05-03-2025 FINGERSTICK GLU 172 mg/dL High 74-106 [facility] Comment on above: Result Comment: KODY GEMENT OF PATIENT CARE PER NURSING PROTOCOL Performed By: #### L 501.080 ####[facility] [address] [place], [address] FINGERSTICK GLU 75 mg/dL Normal 74-106 [facility] Comment on above: Result Comment: KODY GEMENT OF PATIENT CARE PER NURSING PROTOCOL Performed By: #### L 501.080 ####[facility] [address] [place], [address] Basic Metabolic Profile (BMP )on 05-02-2025 BUN Normal 4-19 [facility] Comment on above: Result Comment: Canc elled via OM: Order cancelled - Patient discharged Performed By: #### L 100.0100, L500.2500 ####[facility] [address] [place], [address] BUN/CRE Normal 10-20 [facility] Comment on above: Result Comment: Canc elled via OM: Order cancelled - Patient discharged Performed By: #### L 100.0100, L500.2500 ####[facility] [address] [place], [address] Calcium Normal 7.6-11.0 [facility] Comment on above: Result Comment: Canc elled via OM: Order cancelled - Patient discharged Performed By: #### L 100.0100, L500.2500 ####[facility] [address] [place], [address] CL Normal 98-108 [facility] Comment on above: Result Comment: Canc elled via OM: Order cancelled - Patient discharged Performed By: #### L 100.0100, L500.2500 ####[facility] [address] [place], [address] CO2 Normal 21.0-32.0 [facility] Comment on above: Result Comment: Canc elled via OM: Order cancelled - Patient discharged Performed By: #### L 100.0100, L500.2500 ####[facility] [address] [place], [address] CREAT,SERUM Normal 0.70-1.20 [facility] Comment on above: Result Comment: Canc elled via OM: Order cancelled - Patient discharged Performed By: #### L 100.0100, L500.2500 ####[facility] [address] [place], [address] eGFR Normal >60 [facility] Comment on above: Result Comment: Canc elled via OM: Order cancelled - Patient discharged Performed By: #### L 100.0100, L500.2500 ####[facility] [address] [place], [address] GAP Normal 5-15 [facility] Comment on above: Result Comment: Canc elled via OM: Order cancelled - Patient discharged Performed By: #### L 100.0100, L500.2500 ####[facility] [address] [place], [address] GLU Normal 70-99 [facility] Comment on above: Result Comment: Canc elled via OM: Order cancelled - Patient discharged Performed By: #### L 100.0100, L500.2500 ####[facility] [address] [place], [address] Potassium Normal 3.3-5.1 [facility] Comment on above: Result Comment: Canc elled via OM: Order cancelled - Patient discharged Performed By: #### L 100.0100, L500.2500 ####[facility] [facility] [address] [place], [address] Basic Metabolic Profile (BMP) Normal 133-145 [facility] Comment on above: Result Comment: Canc elled via OM: Order cancelled - Patient discharged Performed By: #### L 100.0100, L500.2500 ####[facility] [address] [place], [address] Bedside Glucoseon 05-02-2025 FINGERSTICK GLU 159 mg/dL High 74-106 [facility] Comment on above: Result Comment: KODY GEMENT OF PATIENT CARE PER NURSING PROTOCOL Performed By: #### L 501.080 ####[facility] [address] [place], [address] FINGERSTICK GLU 87 mg/dL Normal 74-106 [facility] Comment on above: Result Comment: KODY GEMENT OF PATIENT CARE PER NURSING PROTOCOL Performed By: #### L 501.080 ####[facility] [address] [place], [address] CBC W/Diff, Automatedon - Absolute Neut Normal 2.0-7.7 [facility] Comment on above: Result Comment: Canc elled via OM: Order cancelled - Patient discharged Performed By: #### L 100.0100, L500.2500 ####[facility] [address] [place], [address] HCT Normal 40-54 [facility] Comment on above: Result Comment: Canc elled via OM: Order cancelled - Patient discharged Performed By: #### L 100.0100, L500.2500 ####[facility] [address] [place], [address] HGB Normal 13.0-16.5 [facility] Comment on above: Result Comment: Canc elled via OM: Order cancelled - Patient discharged Performed By: #### L 100.0100, L500.2500 ####[facility] [address] [place], [address] MCH Normal 27.0-32.0 [facility] Comment on above: Result Comment: Canc elled via OM: Order cancelled - Patient discharged Performed By: #### L 100.0100, L500.2500 ####[facility] [address] [place], [address] MCHC Normal 32-36 [facility] Comment on above: Result Comment: Canc elled via OM: Order cancelled - Patient discharged Performed By: #### L 100.0100, L500.2500 ####[facility] [address] [place], [address] MCV Normal 80-94 [facility] Comment on above: Result Comment: Canc elled via OM: Order cancelled - Patient discharged Performed By: #### L 100.0100, L500.2500 ####[facility] [address] [place], [address] NEUT% Normal 47-70 [facility] Comment on above: Result Comment: Canc elled via OM: Order cancelled - Patient discharged Performed By: #### L 100.0100, L500.2500 ####[facility] [address] [place], [address] PLT Normal 150-450 [facility] Comment on above: Result Comment: Canc elled via OM: Order cancelled - Patient discharged Performed By: #### L 100.0100, L500.2500 ####[facility] [address] [place], [address] RBC Normal 4.6-6.2 [facility] Comment on above: Result Comment: Canc elled via OM: Order cancelled - Patient discharged Performed By: #### L 100.0100, L500.2500 ####[facility] [address] [place], [address] RDW CV Normal 11.6-14.6 [facility] Comment on above: Result Comment: Canc elled via OM: Order cancelled - Patient discharged Performed By: #### L 100.0100, L500.2500 ####[facility] [address] [place], [address] RDW SD Normal 35.1-43.9 [facility] Comment on above: Result Comment: Canc elled via OM: Order cancelled - Patient discharged Performed By: #### L 100.0100, L500.2500 ####[facility] [address] [place], [address] WBC Normal 4.4-11.0 [facility] Comment on above: Result Comment: Canc elled via OM: Order cancelled - Patient discharged Performed By: #### L 100.0100, L500.2500 ####[facility] [address] [place], [address] HH, Hemoglobin AND Hematocri ton 05-02-2025 Hematocrit (Bld) [Volume fraction] 33.0 % Low 40-54 [facility] Comment on above: Performed By: #### L 100.0600 ####[facility] [address] [place], [address] Hemoglobin (Bld) [Mass/Vol] 10.0 g/dL Low 13.0-16.5 [facility] Comment on above: Performed By: #### L 100.0600 ####[facility] [address] [place], [address] Absolute lymphocyte countOrd ered By: Valdez Geovani on 05-01-2025 Lymphocytes Auto (Unsp spec) [#/Vol] 0.62 10*3/uL Low 0.83-4.51 [facility] Anion gap in Serum or Plasma Ordered By: Valdez Olivo on 05-01-2025 Anion gap [Moles/Vol] 7 mmol/L 5-15 [facility] Automated lymphocyte count a s percentage of total leukocytesOrdered By: Valdez Olivo on 05-01-2025 Lymphocytes/100 WBC Auto (Unsp spec) 16.1 % Low 19-41 [facility] BRCon 05-01-2025 RC Normal [facility] Comment on above: Result Comment: [id number] OP RC TRANSFUSED 05/01/25 [id number] OP RC TRANSFUSED 05/01/25 1137 Performed By: #### B , [facility] ####[facility] [address] [place], [address] BUN/creatinine ratioOrdered By: Valdez Olivo on 05-01-2025 Urea nitrogen/Creatinine [Mass ratio] 20.2 mg/mg High -20 [facility] Basic Metabolic Profile (BMP )on 05-01-2025 BUN/CRE 20.2 RATIO High [facility]20 [facility] Comment on above: Performed By: #### L 500.2500, L100.0100 ####[facility] [address] [place], [address] Calcium [Mass/Vol] 8.8 mg/dL Normal 7.6-11.0 [facility] Comment on above: Performed By: #### L 500.2500, L100.0100 ####[facility] [address] [place], [address] Chloride [Moles/Vol] 102 mmol/L Normal 98-108 [facility] Comment on above: Performed By: #### L 500.2500, L100.0100 ####[facility] [address] [place], [address] CO2 [Moles/Vol] 33.0 mmol/L High 21.0-32.0 [facility] Comment on above: Performed By: #### L 500.2500, L100.0100 ####[facility] [address] [place], [address] Creatinine [Mass/Vol] 1.28 mg/dL High 0.70-1.20 [facility] Comment on above: Performed By: #### L 500.2500, L100.0100 ####[facility] [address] [place], [address] ECRCL 41.54 ml/min Low 50-250 [facility] Comment on above: Performed By: #### L 500.2500, L100.0100 ####[facility] [address] [place], [address] GAP 7 Normal 5-15 [facility] Comment on above: Performed By: #### L 500.2500, L100.0100 ####[facility] [address] [place], [address] GFR/1.73 sq M.predicted among non-blacks MDRD (S/P/Bld) [Vol rate/Area] 57 mL/min/{1.73_m2} Low >60 [facility] Comment on above: Result Comment: mL/m in/1.73m2 CKD-EPI Creatinine Equation (2020) Performed By: #### L 500.2500, L100.0100 ####[facility] [address] [place], [address] Glucose [Mass/Vol] 100 mg/dL High 70-99 [facility] Comment on above: Performed By: #### L 500.2500, L100.0100 ####[facility] [address] [place], [address] Potassium [Moles/Vol] 3.8 mmol/L Normal 3.3-5.1 [facility] Comment on above: Performed By: #### L 500.2500, L100.0100 ####[facility] [address] [place], [address] Sodium [Moles/Vol] 142 mmol/L Normal 133-145 [facility] Comment on above: Performed By: #### L 500.2500, L100.0100 ####[facility] [address] [place], [address] Urea nitrogen [Mass/Vol] 26 mg/dL High 4-19 [facility] Comment on above: Performed By: #### L 500.2500, L100.0100 ####[facility] [address] [place], [address] Basophil percentageOrdered B y: Valdez Olivo on 05-01-2025 Basophils/100 WBC (Bld) 0.3 % 0-1 W [facility] Bedside Glucoseon 05-01-2025 FINGERSTICK GLU 133 mg/dL High 74-106 [facility] Comment on above: Result Comment: KODY GEMENT OF PATIENT CARE PER NURSING PROTOCOL Performed By: #### L 501.080 ####[facility] [address] [place], [address] FINGERSTICK GLU 96 mg/dL Normal 74-106 [facility] Comment on above: Result Comment: KODY GEMENT OF PATIENT CARE PER NURSING PROTOCOL Performed By: #### L 501.080 ####[facility] [address] [place], [address] CBC W/Diff, Automatedon 04-20 Absolute Lymph 0.62 X10 3/uL Low 0.83-4.51 [facility] Comment on above: Performed By: #### L 500.2500, L100.0100 ####[facility] [address] [place], [address] Absolute Neut 2.2 X10 3/uL Normal 2.0-7.7 [facility] Comment on above: Performed By: #### L 500.2500, L100.0100 ####[facility] [address] [place], [address] Basophils/100 WBC (Bld) 0.3 % Normal 0-1 W [facility] Comment on above: Performed By: #### L 500.2500, L100.0100 ####[facility] [address] [place], [address] Eosinophils/100 WBC (Bld) 9.4 % High 0-5 [facility] Comment on above: Performed By: #### L 500.2500, L100.0100 ####[facility] [address] [place], [address] Erythrocyte distribution width (RBC) [Ratio] 17.6 % High 11.6-14.6 [facility] Comment on above: Performed By: #### L 500.2500, L100.0100 ####[facility] [address] [place], [address] Hematocrit (Bld) [Volume fraction] 22.9 % Low 40-54 [facility] Comment on above: Performed By: #### L 500.2500, L100.0100 ####[facility] [address] [place], [address] Hemoglobin (Bld) [Mass/Vol] 7.0 g/dL Low 13.0-16.5 [facility] Comment on above: Performed By: #### L 500.2500, L100.0100 ####[facility] [address] [place], [address] IG% 0.500 Normal 0.0-0.9 [facility] Comment on above: Result Comment: IG% - Immature Granulocytes (promyelocytes, myelocytes andmetamyelocytes) > 1% indicates that a LEFT SHIFT is Present. Performed By: #### L 500.2500, L100.0100 ####[facility] [address] [place], [address] Lymphocytes/100 WBC (Bld) 16.1 % Low 19-41 [facility] Comment on above: Performed By: #### L 500.2500, L100.0100 ####[facility] [address] [place], [address] MCH (RBC) [Entitic mass] 27.5 pg Normal 27.0-32.0 [facility] Comment on above: Performed By: #### L 500.2500, L100.0100 ####[facility] [address] [place], [address] MCHC (RBC) [Mass/Vol] 30.6 g/dL Low 32-36 [facility] Comment on above: Performed By: #### L 500.2500, L100.0100 ####[facility] [address] [place], [address] MCV (RBC) [Entitic vol] 89.8 fL Normal 80-94 W [facility] Comment on above: Performed By: #### L 500.2500, L100.0100 ####[facility] [address] [place], [address] Monocytes/100 WBC (Bld) 16.4 % High 0-10 W [facility] Comment on above: Performed By: #### L 500.2500, L100.0100 ####[facility] [address] [place], [address] Neutrophils/100 WBC (Bld) 57.3 % Normal 47-70 [facility] Comment on above: Performed By: #### L 500.2500, L100.0100 ####[facility] [address] [place], [address] Nucleated RBC (Bld) [#/Vol] 0 10*3/uL Normal 0-5 [facility] Comment on above: Performed By: #### L 500.2500, L100.0100 ####[facility] [address] [place], [address] Platelet mean volume (Bld) [Entitic vol] 10.5 fL Normal 6.2-12.0 [facility] Comment on above: Performed By: #### L 500.2500, L100.0100 ####[facility] [address] [place], [address] Platelets (Bld) [#/Vol] 149 10*3/uL Low 150-450 [facility] Comment on above: Performed By: #### L 500.2500, L100.0100 ####[facility] [address] [place], [address] RBC (Bld) [#/Vol] 2.55 10*6/uL Low 4.6-6.2 [facility] Comment on above: Performed By: #### L 500.2500, L100.0100 ####[facility] [address] [place], [address] RDW SD 57.8 fl High 35.1-43.9 [facility] Comment on above: Performed By: #### L 500.2500, L100.0100 ####[facility] [address] [place], [address] WBC (Bld) [#/Vol] 3.9 10*3/uL Low 4.4-11.0 [facility] Comment on above: Performed By: #### L 500.2500, L100.0100 ####[facility] [address] [place], [address] Carbon dioxide, total [Moles /volume] in Central venous bloodOrdered By: Valdez Olivo on 05-01-2025 CO2 [Moles/Vol] 33.0 mmol/L High 21.0-32.0 [facility] Chloride assayOrdered By: Aiden Olivo on 05-01-2025 Chloride [Moles/Vol] 102 mmol/L 98-108 [facility] Eosinophil percentageOrdered By: Valdez Olivo 05-01-2025 Eosinophils/100 WBC (Bld) 9.4 % High 0-5 [facility] Erythrocyte distribution wid th ratioOrdered By: Valdez Olivo on 05-01-2025 Erythrocyte distribution width (RBC) [Ratio] 17.6 % High 11.6-14.6 [facility] Erythrocyte distribution wid th standard deviationOrdered By: Valdez Olivo on 05-01-2025 Erythrocyte distribution width (RBC) [Ratio] 57.8 fl High 35.1-43.9 [facility] Glomerular filtration rate ( GFR) estimation/1.73 sq m using serum, plasma, or whole bOrdered By: Valdez Olivo on 05-01-2025 GFR/1.73 sq M.predicted among non-blacks MDRD (S/P/Bld) [Vol rate/Area] 57 mL/min/{1.73_m2} Low >60 [facility] Immature granulocytes/100 WB C Auto (Bld)Ordered By: Valdez Olivo 05-01-2025 Immature granulocytes/100 WBC (Bld) 0.500 % 0.0-0.9 [facility] MCV (mean corpuscular volume ) determinationOrdered By: Valdez Olivo 05-01-2025 MCV (RBC) [Entitic vol] 89.8 fL 80-94 W [facility] Mean corpuscular hemoglobin (MCH) determinationOrdered By: Valdez Olivo 05-01-2025 MCH (RBC) [Entitic mass] 27.5 pg 27.0-32.0 [facility] Monocyte percentageOrdered B y: Valdez Olivo on 05-01-2025 Monocytes/100 WBC (Bld) 16.4 % High 0-10 W [facility] Neutrophil percentageOrdered By: Valdez Olivo 05-01-2025 Neutrophils/100 WBC (Bld) 57.3 % 47-70 [facility] Platelet countOrdered By: Aiden Olivo on 05-01-2025 Platelets (Bld) [#/Vol] 149 10*3/uL Low 150-450 [facility] Potassium measurement (mass/ volume)Ordered By: Valdez Olivo on 05-01-2025 Potassium (Unsp spec) [Mass/Vol] 3.8 mmol/L 3.3-5.1 [facility] RBC Auto (Bld) [#/Vol]Ordere d By: Valdez Olivo on 05-01-2025 RBC (Bld) [#/Vol] 2.55 10*6/uL Low 4.6-6.2 [facility] Serum creatinine measurement (mass/volume)Ordered By: Valdez Olivo on 05-01-2025 Creatinine [Mass/Vol] 1.28 mg/dL High 0.70-1.20 [facility] Serum glucose measurement (m ass/volume)Ordered By: Valdez Olivo on 05-01-2025 Glucose [Mass/Vol] 100 mg/dL High 70-99 [facility] Serum or plasma calcium kings[place] urement (mass/volume)Ordered By: Valdez Olivo on 05-01-2025 Calcium [Mass/Vol] 8.8 mg/dL 7.6-11.0 [facility] Serum or plasma urea nitroge n measurement (mass/volume)Ordered By: Valdez Olivo on 05-01-2025 Urea nitrogen [Mass/Vol] 26 mg/dL High 4-19 [facility] Sodium levelOrdered By: Valdez Olivo on 05-01-2025 Sodium [Moles/Vol] 142 mmol/L 133-145 [facility] Type AND Screenon 05-01-2025 ABO and Rh group Nom (Bld) Blood group O Rh(D) positive Normal [facility] Comment on above: Order Comment: CMV N EG? NNumber of units to transfuse: 2Is there a >20% drop in pt's BP? YIs the pt's CVP (central venous pressure) <3 cm/H2O? NIs there an orthostatic change in pt's BP(SBP drop>10mmHg)? YIs pt's HR > 100 bpm? NReason for Ordering Blood: AcuteAre the blood/blood products to be transfused? YIs the patient having/had surgery? NWhen ReadyNY Performed By: #### B TS, BR ####[facility] [address] [place], [address] White blood cell (WBC) count Ordered By: Valdez Olivo on 05-01-2025 WBC (Bld) [#/Vol] 3.9 10*3/uL Low 4.4-11.0 [facility] Basic Metabolic Profile (BMP )on 04-30-2025 BUN/CRE 20.0 RATIO Normal 10-20 [facility] Comment on above: Performed By: #### L 503.7505, L100.0100, L500.2500 ####[facility] [address] [place], [address] Calcium [Mass/Vol] 9.0 mg/dL Normal 7.6-11.0 [facility] Comment on above: Performed By: #### L 503.7505, L100.0100, L500.2500 ####[facility] [address] [place], [address] Chloride [Moles/Vol] 101 mmol/L Normal 98-108 [facility] Comment on above: Performed By: #### L 503.7505, L100.0100, L500.2500 ####[facility] [address] [place], [address] CO2 [Moles/Vol] 31.1 mmol/L Normal 21.0-32.0 [facility] Comment on above: Performed By: #### L 503.7505, L100.0100, L500.2500 ####[facility] [address] [place], [address] Creatinine [Mass/Vol] 1.35 mg/dL High 0.70-1.20 [facility] Comment on above: Performed By: #### L 503.7505, L100.0100, L500.2500 ####[facility] [address] [place], [address] ECRCL 39.38 ml/min Low 50-250 [facility] Comment on above: Performed By: #### L 503.7505, L100.0100, L500.2500 ####[facility] [address] [place], [address] GAP 8 Normal 5-15 [facility] Comment on above: Performed By: #### L 503.7505, L100.0100, L500.2500 ####[facility] [address] [place], [address] GFR/1.73 sq M.predicted among non-blacks MDRD (S/P/Bld) [Vol rate/Area] 53 mL/min/{1.73_m2} Low >60 [facility] Comment on above: Result Comment: mL/m in/1.73m2 CKD-EPI Creatinine Equation (2020) Performed By: #### L 503.7505, L100.0100, L500.2500 ####[facility] [address] [place], [address] Glucose [Mass/Vol] 221 mg/dL High 70-99 [facility] Comment on above: Performed By: #### L 503.7505, L100.0100, L500.2500 ####[facility] [address] [place], [address] Potassium [Moles/Vol] 4.8 mmol/L Normal 3.3-5.1 [facility] Comment on above: Result Comment: Hemo lysis present, Results??could be affected.?? Performed By: #### L 503.7505, L100.0100, L500.2500 ####[facility] [address] [place], [address] Sodium [Moles/Vol] 140 mmol/L Normal 133-145 [facility] Comment on above: Performed By: #### L 503.7505, L100.0100, L500.2500 ####[facility] [address] [place], [address] Urea nitrogen [Mass/Vol] 27 mg/dL High 4-19 [facility] Comment on above: Performed By: #### L 503.7505, L100.0100, L500.2500 ####[facility] [address] [place], [address] Bedside Glucoseon 04-30-2025 FINGERSTICK GLU 164 mg/dL High 74-106 [facility] Comment on above: Result Comment: KODY GEMENT OF PATIENT CARE PER NURSING PROTOCOL Performed By: #### L 501.080 ####[facility] [address] [place], [address] FINGERSTICK GLU 136 mg/dL High 74-106 [facility] Comment on above: Result Comment: KODY GEMENT OF PATIENT CARE PER NURSING PROTOCOL Performed By: #### L 501.080 ####[facility] [address] [place], [address] FINGERSTICK GLU 213 mg/dL High 74-106 [facility] Comment on above: Result Comment: KODY GEMENT OF PATIENT CARE PER NURSING PROTOCOL Performed By: #### L 501.080 ####[facility] [address] [place], [address] FINGERSTICK GLU 101 mg/dL Normal 74-106 [facility] Comment on above: Result Comment: KODY GEMENT OF PATIENT CARE PER NURSING PROTOCOL Performed By: #### L 501.080 ####[facility] [address] [place], [address] CBC W/Diff, Automatedon 04-20 Absolute Lymph 0.49 X10 3/uL Low 0.83-4.51 [facility] Comment on above: Performed By: #### L 503.7505, L100.0100, L500.2500 ####[facility] [address] [place], [address] Absolute Neut 3.2 X10 3/uL Normal 2.0-7.7 [facility] Comment on above: Performed By: #### L 503.7505, L100.0100, L500.2500 ####[facility] [address] [place], [address] Basophils/100 WBC (Bld) 0.5 % Normal 0-1 W [facility] Comment on above: Performed By: #### L 503.7505, L100.0100, L500.2500 ####[facility] [address] [place], [address] Eosinophils/100 WBC (Bld) 2.5 % Normal 0-5 [facility] Comment on above: Performed By: #### L 503.7505, L100.0100, L500.2500 ####[facility] [address] [place], [address] Erythrocyte distribution width (RBC) [Ratio] 17.6 % High 11.6-14.6 [facility] Comment on above: Performed By: #### L 503.7505, L100.0100, L500.2500 ####[facility] [address] [place], [address] Hematocrit (Bld) [Volume fraction] 26.0 % Low 40-54 [facility] Comment on above: Performed By: #### L 503.7505, L100.0100, L500.2500 ####[facility] [address] [place], [address] Hemoglobin (Bld) [Mass/Vol] 7.7 g/dL Low 13.0-16.5 [facility] Comment on above: Performed By: #### L 503.7505, L100.0100, L500.2500 ####[facility] [address] [place], [address] IG% 0.900 Normal 0.0-0.9 [facility] Comment on above: Result Comment: IG% - Immature Granulocytes (promyelocytes, myelocytes andmetamyelocytes) > 1% indicates that a LEFT SHIFT is Present. Performed By: #### L 503.7505, L100.0100, L500.2500 ####[facility] [address] [place], [address] Lymphocytes/100 WBC (Bld) 11.1 % Low 19-41 [facility] Comment on above: Performed By: #### L 503.7505, L100.0100, L500.2500 ####[facility] [address] [place], [address] MCH (RBC) [Entitic mass] 26.9 pg Low 27.0-32.0 [facility] Comment on above: Performed By: #### L 503.7505, L100.0100, L500.2500 ####[facility] [address] [place], [address] MCHC (RBC) [Mass/Vol] 29.6 g/dL Low 32-36 [facility] Comment on above: Performed By: #### L 503.7505, L100.0100, L500.2500 ####[facility] [address] [place], [address] MCV (RBC) [Entitic vol] 90.9 fL Normal 80-94 W [facility] Comment on above: Performed By: #### L 503.7505, L100.0100, L500.2500 ####[facility] [address] [place], [address] Monocytes/100 WBC (Bld) 13.6 % High 0-10 W [facility] Comment on above: Performed By: #### L 503.7505, L100.0100, L500.2500 ####[facility] [address] [place], [address] Neutrophils/100 WBC (Bld) 71.4 % High 47-70 [facility] Comment on above: Performed By: #### L 503.7505, L100.0100, L500.2500 ####[facility] [address] [place], [address] Nucleated RBC (Bld) [#/Vol] 0 10*3/uL Normal 0-5 [facility] Comment on above: Performed By: #### L 503.7505, L100.0100, L500.2500 ####[facility] [address] [place], [address] Platelet mean volume (Bld) [Entitic vol] 10.6 fL Normal 6.2-12.0 [facility] Comment on above: Performed By: #### L 503.7505, L100.0100, L500.2500 ####[facility] [address] [place], [address] Platelets (Bld) [#/Vol] 163 10*3/uL Normal 150-450 [facility] Comment on above: Performed By: #### L 503.7505, L100.0100, L500.2500 ####[facility] [address] [place], [address] RBC (Bld) [#/Vol] 2.86 10*6/uL Low 4.6-6.2 [facility] Comment on above: Performed By: #### L 503.7505, L100.0100, L500.2500 ####[facility] [address] [place], [address] RDW SD 58.2 fl High 35.1-43.9 [facility] Comment on above: Performed By: #### L 503.7505, L100.0100, L500.2500 ####[facility] [address] [place], [address] WBC (Bld) [#/Vol] 4.4 10*3/uL Normal 4.4-11.0 [facility] Comment on above: Performed By: #### L 503.7505, L100.0100, L500.2500 ####[facility] [address] [place], [address] Chest PA and Lateralon 04-30 Chest PA and Lateral Normal [facility] Natriuretic peptide.B prohor girish N-Terminal [Mass/volume] in Serum or PlasmaOrdered By: Valdez Olivo on 04-30-2025 Natriuretic peptide.B prohormone N-Terminal [Mass/Vol] 5226 pg/mL High <1800 [facility] Pro- Brain NATRIURETIC PEPTI Adrienne 04-30-2025 Natriuretic peptide B (Bld) [Mass/Vol] 5226 pg/mL High <=1800 [facility] Comment on above: Result Comment: Hear t Failure Unlikely: < 300 pg/mLHeart Failure Likely< 50 Years: > 450 pg/mL50-75 Years: > 900 pg/mL>75 Years: > 1800 pg/mL Performed By: #### L 503.7505, L100.0100, L500.2500 ####[facility] [address] [place], [address] Stool Occult Blood iFOBon STOB Positive Normal [facility] Comment on above: Performed By: #### M 100.7900 ####[facility] [address] [place], [address] Stool gastrointestinal hemog lobin detection by immunologic methodOrdered By: Valdez Olivo on 04-30-2025 Lower GI hemoglobin IA Ql (Stl) Positive Abnormal [facility] Bedside Glucoseon 04-29-2025 FINGERSTICK GLU 127 mg/dL High 74-106 [facility] Comment on above: Result Comment: KODY STRONG OF PATIENT CARE PER NURSING PROTOCOL Performed By: #### L 501.080 ####[facility] [address] [place], [address] FINGERSTICK GLU 117 mg/dL High 74-106 [facility] Comment on above: Result Comment: KODY GEMENT OF PATIENT CARE PER NURSING PROTOCOL Performed By: #### L 501.080 ####[facility] [address] [place], [address] FINGERSTICK GLU 149 mg/dL High 74-106 [facility] Comment on above: Result Comment: KODY GEMENT OF PATIENT CARE PER NURSING PROTOCOL Performed By: #### L 501.080 ####[facility] [address] [place], [address] FINGERSTICK GLU 92 mg/dL Normal -106 [facility] Comment on above: Result Comment: KODY GEMENT OF PATIENT CARE PER NURSING PROTOCOL Performed By: #### L 501.080 ####[facility] [address] [place], [address] Bedside Glucoseon 04-28-2025 FINGERSTICK GLU 190 mg/dL High -106 [facility] Comment on above: Result Comment: KODY GEMENT OF PATIENT CARE PER NURSING PROTOCOL Performed By: #### L 501.080 ####[facility] [address] [place], [address] FINGERSTICK GLU 129 mg/dL High 74-106 [facility] Comment on above: Result Comment: KODY GEMENT OF PATIENT CARE PER NURSING PROTOCOL Performed By: #### L 501.080 ####[facility] [address] [place], [address] FINGERSTICK GLU 110 mg/dL High -106 [facility] Comment on above: Result Comment: KODY GEMENT OF PATIENT CARE PER NURSING PROTOCOL Performed By: #### L 501.080 ####[facility] [address] [place], [address] FINGERSTICK GLU 101 mg/dL Normal -106 [facility] Comment on above: Result Comment: KODY GEMENT OF PATIENT CARE PER NURSING PROTOCOL Performed By: #### L 501.080 ####[facility] [address] [facility] [address] Glucose measurement at [facility] deOrdered By: Valdez Olivo on 04-28-2025 Glucose [Mass/Vol] 190 mg/dL High 74-106 [facility] Pacemaker Checkon 04-28-2025 Pacemaker Check Normal [facility] Bedside Glucoseon 04-27-2025 FINGERSTICK GLU 176 mg/dL High 74-106 [facility] Comment on above: Result Comment: KODY GEMENT OF PATIENT CARE PER NURSING PROTOCOL Performed By: #### L 501.080 ####[facility] [address] [facility] [address] FINGERSTICK GLU 127 mg/dL High -[address] [place] [address] Comment on above: Result Comment: KODY GEMENT OF PATIENT CARE PER NURSING PROTOCOL Performed By: #### L 501.080 ####[facility] [address] [place], [address] FINGERSTICK GLU 164 mg/dL High -106 [facility] Comment on above: Result Comment: KODY GEMENT OF PATIENT CARE PER NURSING PROTOCOL Performed By: #### L 501.080 ####[facility] [address] [facility] [address] FINGERSTICK GLU 103 mg/dL Normal -106 [facility] Comment on above: Result Comment: KODY GEMENT OF PATIENT CARE PER NURSING PROTOCOL Performed By: #### L 501.080 ####[facility] [address] [place], [address] Glucose measurement at bedsi deOrdered By: Valdez Olivo on 04-27-2025 Glucose [Mass/Vol] 176 mg/dL High 74-106 [facility] Bedside Glucoseon 04-26-2025 FINGERSTICK GLU 148 mg/dL High 74-106 [facility] Comment on above: Result Comment: KODY GEMENT OF PATIENT CARE PER NURSING PROTOCOL Performed By: #### L 501.080 ####[facility] [address] [place], [address] FINGERSTICK GLU 128 mg/dL High 74-106 [facility] Comment on above: Result Comment: KODY GEMENT OF PATIENT CARE PER NURSING PROTOCOL Performed By: #### L 501.080 ####[facility] [address] [place], [address] FINGERSTICK GLU 135 mg/dL High 74-106 [facility] Comment on above: Result Comment: KODY GEMENT OF PATIENT CARE PER NURSING PROTOCOL Performed By: #### L 501.080 ####[facility] [address] [place], [address] FINGERSTICK GLU 124 mg/dL High 74-106 [facility] Comment on above: Result Comment: KODY GEMENT OF PATIENT CARE PER NURSING PROTOCOL Performed By: #### L 501.080 ####[facility] [address] [place], [address] Basic Metabolic Profile (BMP )on 04-25-2025 BUN Normal 4-19 [facility] Comment on above: Result Comment: Canc elled via OM: Order cancelled - Patient discharged Performed By: #### L 100.0100, L500.2500 ####[facility] [address] [place], [address] BUN/CRE Normal 10-20 [facility] Comment on above: Result Comment: Canc elled via OM: Order cancelled - Patient discharged Performed By: #### L 100.0100, L500.2500 ####[facility] [address] [place], [address] Calcium Normal 7.6-11.0 [facility] Comment on above: Result Comment: Canc elled via OM: Order cancelled - Patient discharged Performed By: #### L 100.0100, L500.2500 ####[facility] [address] [place], [address] CL Normal 98-108 [facility] Comment on above: Result Comment: Canc elled via OM: Order cancelled - Patient discharged Performed By: #### L 100.0100, L500.2500 ####[facility] [address] [place], [address] CO2 Normal 21.0-32.0 [facility] Comment on above: Result Comment: Canc elled via OM: Order cancelled - Patient discharged Performed By: #### L 100.0100, L500.2500 ####[facility] [address] [place], [address] CREAT,SERUM Normal 0.70-1.20 [facility] Comment on above: Result Comment: Canc elled via OM: Order cancelled - Patient discharged Performed By: #### L 100.0100, L500.2500 ####[facility] [address] [place], [address] eGFR Normal >60 [facility] Comment on above: Result Comment: Canc elled via OM: Order cancelled - Patient discharged Performed By: #### L 100.0100, L500.2500 ####[facility] [address] [place], [address] GAP Normal 5-15 [facility] Comment on above: Result Comment: Canc elled via OM: Order cancelled - Patient discharged Performed By: #### L 100.0100, L500.2500 ####[facility] [address] [place], [address] GLU Normal 70-99 [facility] Comment on above: Result Comment: Canc elled via OM: Order cancelled - Patient discharged Performed By: #### L 100.0100, L500.2500 ####[facility] [address] [place], [address] Potassium Normal 3.3-5.1 [facility] Comment on above: Result Comment: Canc elled via OM: Order cancelled - Patient discharged Performed By: #### L 100.0100, L500.2500 ####[facility] [address] [place], [address] Basic Metabolic Profile (BMP) Normal 133-145 [facility] Comment on above: Result Comment: Canc elled via OM: Order cancelled - Patient discharged Performed By: #### L 100.0100, L500.2500 ####[facility] [address] [place], [address] Bedside Glucoseon 04-25-2025 FINGERSTICK GLU 170 mg/dL High 74-106 [facility] Comment on above: Result Comment: KODY GEMENT OF PATIENT CARE PER NURSING PROTOCOL Performed By: #### L 501.080 ####[facility] [address] [place], [address] FINGERSTICK GLU 114 mg/dL High 74-106 [facility] Comment on above: Result Comment: KODY GEMENT OF PATIENT CARE PER NURSING PROTOCOL Performed By: #### L 501.080 ####[facility] [address] [place], [address] FINGERSTICK GLU 120 mg/dL High 74-106 [facility] Comment on above: Result Comment: KODY GEMENT OF PATIENT CARE PER NURSING PROTOCOL Performed By: #### L 501.080 ####[facility] [address] [place], [address] FINGERSTICK GLU 96 mg/dL Normal 74-106 [facility] Comment on above: Result Comment: KODY GEMENT OF PATIENT CARE PER NURSING PROTOCOL Performed By: #### L 501.080 ####[facility] [address] [place], [address] FINGERSTICK GLU 64 mg/dL Low 74-106 [facility] Comment on above: Result Comment: KODY GEMENT OF PATIENT CARE PER NURSING PROTOCOL Performed By: #### L 501.080 ####[facility] [address] [place], [address] FINGERSTICK GLU 71 mg/dL Low 74-106 [facility] Comment on above: Result Comment: KODY GEMENT OF PATIENT CARE PER NURSING PROTOCOL Performed By: #### L 501.080 ####[facility] [address] [place], [address] CBC W/Diff, Automatedon 09-0 6-2024 Absolute Neut Normal 2.0-7.7 [facility] Comment on above: Result Comment: Canc elled via OM: Order cancelled - Patient discharged Performed By: #### L 100.0100, L500.2500 ####[facility] [address] [place], [address] HCT Normal 40-54 [facility] Comment on above: Result Comment: Canc elled via OM: Order cancelled - Patient discharged Performed By: #### L 100.0100, L500.2500 ####[facility] [address] [place], [address] HGB Normal 13.0-16.5 [facility] Comment on above: Result Comment: Canc elled via OM: Order cancelled - Patient discharged Performed By: #### L 100.0100, L500.2500 ####[facility] [address] [place], [address] MCH Normal 27.0-32.0 [facility] Comment on above: Result Comment: Canc elled via OM: Order cancelled - Patient discharged Performed By: #### L 100.0100, L500.2500 ####[facility] [address] [place], [address] MCHC Normal 32-36 [facility] Comment on above: Result Comment: Canc elled via OM: Order cancelled - Patient discharged Performed By: #### L 100.0100, L500.2500 ####[facility] [address] [place], [address] MCV Normal 80-94 [facility] Comment on above: Result Comment: Canc elled via OM: Order cancelled - Patient discharged Performed By: #### L 100.0100, L500.2500 ####[facility] [address] [place], [address] NEUT% Normal 47-70 [facility] Comment on above: Result Comment: Canc elled via OM: Order cancelled - Patient discharged Performed By: #### L 100.0100, L500.2500 ####[facility] [address] [place], [address] PLT Normal 150-450 [facility] Comment on above: Result Comment: Canc elled via OM: Order cancelled - Patient discharged Performed By: #### L 100.0100, L500.2500 ####[facility] [address] [place], [address] RBC Normal 4.6-6.2 [facility] Comment on above: Result Comment: Canc elled via OM: Order cancelled - Patient discharged Performed By: #### L 100.0100, L500.2500 ####[facility] [address] [place], [address] RDW CV Normal 11.6-14.6 [facility] Comment on above: Result Comment: Canc elled via OM: Order cancelled - Patient discharged Performed By: #### L 100.0100, L500.2500 ####[facility] [address] [place], [address] RDW SD Normal 35.1-43.9 [facility] Comment on above: Result Comment: Canc elled via OM: Order cancelled - Patient discharged Performed By: #### L 100.0100, L500.2500 ####[facility] [address] [place], [address] WBC Normal 4.4-11.0 [facility] Comment on above: Result Comment: Canc elled via OM: Order cancelled - Patient discharged Performed By: #### L 100.0100, L500.2500 ####[facility] [address] [place], [address] Absolute lymphocyte countOrd ered By: Valdez Olivo on 04-24-2025 Lymphocytes Auto (Unsp spec) [#/Vol] 0.49 10*3/uL Low 0.83-4.51 [facility] Anion gap in Serum or Plasma Ordered By: Valdez Olivo on 04-24-2025 Anion gap [Moles/Vol] 8 mmol/L 5-15 [facility] Automated lymphocyte count a s percentage of total leukocytesOrdered By: Valdez Olivo on 04-24-2025 Lymphocytes/100 WBC Auto (Unsp spec) 7.3 % Low 19-41 [facility] BUN/creatinine ratioOrdered By: Valdez Olivo on 04-24-2025 Urea nitrogen/Creatinine [Mass ratio] 16.4 mg/mg 10- [facility] Basic Metabolic Profile (BMP )on 04-24-2025 BUN/CRE 16.4 RATIO Normal - [facility] Comment on above: Performed By: #### L 100.0100, L500.2500 ####[facility] [address] [place], [address] Calcium [Mass/Vol] 8.6 mg/dL Normal 7.6-11.0 [facility] Comment on above: Performed By: #### L 100.0100, L500.2500 ####[facility] [address] [place], [address] Chloride [Moles/Vol] 104 mmol/L Normal 98-108 [facility] Comment on above: Performed By: #### L 100.0100, L500.2500 ####[facility] [address] [place], [address] CO2 [Moles/Vol] 27.4 mmol/L Normal 21.0-32.0 [facility] Comment on above: Performed By: #### L 100.0100, L500.2500 ####[facility] [address] [place], [address] Creatinine [Mass/Vol] 1.28 mg/dL High 0.70-1.20 [facility] Comment on above: Performed By: #### L 100.0100, L500.2500 ####[facility] [address] [place], [address] ECRCL 41.54 ml/min Low 50-250 [facility] Comment on above: Performed By: #### L 100.0100, L500.2500 ####[facility] [address] [place], [address] GAP 8 Normal 5-15 [facility] Comment on above: Performed By: #### L 100.0100, L500.2500 ####[facility] [address] [place], [address] GFR/1.73 sq M.predicted among non-blacks MDRD (S/P/Bld) [Vol rate/Area] 57 mL/min/{1.73_m2} Low >60 [facility] Comment on above: Result Comment: mL/m in/1.73m2 CKD-EPI Creatinine Equation (2020) Performed By: #### L 100.0100, L500.2500 ####[facility] [address] [place], [address] Glucose [Mass/Vol] 153 mg/dL High 70-99 [facility] Comment on above: Performed By: #### L 100.0100, L500.2500 ####[facility] [address] [place], [address] Potassium [Moles/Vol] 4.2 mmol/L Normal 3.3-5.1 [facility] Comment on above: Performed By: #### L 100.0100, L500.2500 ####[facility] [address] [place], [address] Sodium [Moles/Vol] 140 mmol/L Normal 133-145 [facility] Comment on above: Performed By: #### L 100.0100, L500.2500 ####[facility] [address] [place], [address] Urea nitrogen [Mass/Vol] 21 mg/dL High 4-19 [facility] Comment on above: Performed By: #### L 100.0100, L500.2500 ####[facility] [address] [place], [address] Basophil percentageOrdered B y: Valdez Geovani on 04-24-2025 Basophils/100 WBC (Bld) 0.3 % 0-1 [facility] Bedside Glucoseon 04-24-2025 FINGERSTICK GLU 131 mg/dL High 74-106 [facility] Comment on above: Result Comment: KODY GEMENT OF PATIENT CARE PER NURSING PROTOCOL Performed By: #### L 501.080 ####[facility] [address] [place], [address] FINGERSTICK GLU 132 mg/dL High 74-106 [facility] Comment on above: Result Comment: KODY GEMENT OF PATIENT CARE PER NURSING PROTOCOL Performed By: #### L 501.080 ####[facility] [address] [place], [address] FINGERSTICK GLU 119 mg/dL High 74-106 [facility] Comment on above: Result Comment: KODY GEMENT OF PATIENT CARE PER NURSING PROTOCOL Performed By: #### L 501.080 ####[facility] [address] [place], [address] FINGERSTICK GLU 120 mg/dL High 74-106 [facility] Comment on above: Result Comment: KODY GEMENT OF PATIENT CARE PER NURSING PROTOCOL Performed By: #### L 501.080 ####[facility] [address] [place], [address] CBC W/Diff, Automatedon 09-0 5-2025 Absolute Lymph 0.49 X10 3/uL Low 0.83-4.51 [facility] Comment on above: Performed By: #### L 100.0100, L500.2500 ####[facility] [address] [place], [address] Absolute Neut 5.4 X10 3/uL Normal 2.0-7.7 [facility] Comment on above: Performed By: #### L 100.0100, L500.2500 ####[facility] [address] [place], [address] Basophils/100 WBC (Bld) 0.3 % Normal 0-1 W [facility] Comment on above: Performed By: #### L 100.0100, L500.2500 ####[facility] [address] [place], [address] Eosinophils/100 WBC (Bld) 2.5 % Normal 0-5 [facility] Comment on above: Performed By: #### L 100.0100, L500.2500 ####[facility] [address] [place], [address] Erythrocyte distribution width (RBC) [Ratio] 17.6 % High 11.6-14.6 [facility] Comment on above: Performed By: #### L 100.0100, L500.2500 ####[facility] [address] [place], [address] Hematocrit (Bld) [Volume fraction] 26.6 % Low 40-54 [facility] Comment on above: Performed By: #### L 100.0100, L500.2500 ####[facility] [address] [place], [address] Hemoglobin (Bld) [Mass/Vol] 8.0 g/dL Low 13.0-16.5 [facility] Comment on above: Performed By: #### L 100.0100, L500.2500 ####[facility] [address] [place], [address] IG% 0.900 Normal 0.0-0.9 [facility] Comment on above: Result Comment: IG% - Immature Granulocytes (promyelocytes, myelocytes andmetamyelocytes) > 1% indicates that a LEFT SHIFT is Present. Performed By: #### L 100.0100, L500.2500 ####[facility] [address] [place], [address] Lymphocytes/100 WBC (Bld) 7.3 % Low 19-41 [facility] Comment on above: Performed By: #### L 100.0100, L500.2500 ####[facility] [address] [place], [address] MCH (RBC) [Entitic mass] 27.1 pg Normal 27.0-32.0 [facility] Comment on above: Performed By: #### L 100.0100, L500.2500 ####[facility] [address] [place], [address] MCHC (RBC) [Mass/Vol] 30.1 g/dL Low 32-36 [facility] Comment on above: Performed By: #### L 100.0100, L500.2500 ####[facility] [address] [place], [address] MCV (RBC) [Entitic vol] 90.2 fL Normal 80-94 W [facility] Comment on above: Performed By: #### L 100.0100, L500.2500 ####[facility] [address] [place], [address] Monocytes/100 WBC (Bld) 8.0 % Normal 0-10 W [facility] Comment on above: Performed By: #### L 100.0100, L500.2500 ####[facility] [address] [place], [address] Neutrophils/100 WBC (Bld) 81.0 % High 47-70 [facility] Comment on above: Performed By: #### L 100.0100, L500.2500 ####[facility] [address] [place], [address] Nucleated RBC (Bld) [#/Vol] 0 10*3/uL Normal 0-5 [facility] Comment on above: Performed By: #### L 100.0100, L500.2500 ####[facility] [address] [place], [address] Platelet mean volume (Bld) [Entitic vol] 10.5 fL Normal 6.2-12.0 [facility] Comment on above: Performed By: #### L 100.0100, L500.2500 ####[facility] [address] [place], [address] Platelets (Bld) [#/Vol] 132 10*3/uL Low 150-450 [facility] Comment on above: Performed By: #### L 100.0100, L500.2500 ####[facility] [address] [place], [address] RBC (Bld) [#/Vol] 2.95 10*6/uL Low 4.6-6.2 [facility] Comment on above: Performed By: #### L 100.0100, L500.2500 ####[facility] [address] [place], [address] RDW SD 58.4 fl High 35.1-43.9 [facility] Comment on above: Performed By: #### L 100.0100, L500.2500 ####[facility] [address] [place], [place], [address] WBC (Bld) [#/Vol] 6.7 10*3/uL Normal 4.4-11.0 [facility] Comment on above: Performed By: #### L 100.0100, L500.2500 ####[facility] [address] [place], [address] Carbon dioxide, total [Moles /volume] in Central venous bloodOrdered By: Valdez Olivo on 04-24-2025 CO2 [Moles/Vol] 27.4 mmol/L 21.0-32.0 [facility] Chloride assayOrdered By: Aiden Olivo on 04-24-2025 Chloride [Moles/Vol] 104 mmol/L 98-108 [facility] Eosinophil percentageOrdered By: Valdez Olivo on 04-24-2025 Eosinophils/100 WBC (Bld) 2.5 % 0-5 [facility] Erythrocyte distribution wid th ratioOrdered By: Valdez Olivo on 04-24-2025 Erythrocyte distribution width (RBC) [Ratio] 17.6 % High 11.6-14.6 [facility] Erythrocyte distribution wid th standard deviationOrdered By: Valdez Olivo on 04-24-2025 Erythrocyte distribution width (RBC) [Ratio] 58.4 fl High 35.1-43.9 [facility] Glomerular filtration rate ( GFR) estimation/1.73 sq m using serum, plasma, or whole bOrdered By: Valdez Olivo on 04-24-2025 GFR/1.73 sq M.predicted among non-blacks MDRD (S/P/Bld) [Vol rate/Area] 57 mL/min/{1.73_m2} Low >60 [facility] Hematocrit Auto (Bld) [Volum e fraction]Ordered By: Valdez Olivo on 04-24-2025 Hematocrit (Bld) [Volume fraction] 26.6 % Low 40-54 [facility] Hemoglobin measurementOrdere d By: Valdez Olivo on 04-24-2025 Hemoglobin (Bld) [Mass/Vol] 8.0 g/dL Low 13.0-16.5 [facility] Immature granulocytes/100 WB C Auto (Bld)Ordered By: Valdez Olivo on 04-24-2025 Immature granulocytes/100 WBC (Bld) 0.900 % 0.0-0.9 [facility] MCV (mean corpuscular volume ) determinationOrdered By: Valdez Olivo on 04-24-2025 MCV (RBC) [Entitic vol] 90.2 fL 80-94 W [facility] Mean corpuscular hemoglobin (MCH) determinationOrdered By: Valdez Olivo on 04-24-2025 MCH (RBC) [Entitic mass] 27.1 pg 27.0-32.0 [facility] Monocyte percentageOrdered B y: Valdez Olivo on 04-24-2025 Monocytes/100 WBC (Bld) 8.0 % 0-10 W [facility] Neutrophil percentageOrdered By: Valdez Olivo on 04-24-2025 Neutrophils/100 WBC (Bld) 81.0 % High 47-70 [facility] Platelet countOrdered By: Aiden Olivo on 04-24-2025 Platelets (Bld) [#/Vol] 132 10*3/uL Low 150-450 [facility] Potassium measurement (mass/ volume)Ordered By: Valdez Olivo on 04-24-2025 Potassium (Unsp spec) [Mass/Vol] 4.2 mmol/L 3.3-5.1 [facility] RBC Auto (Bld) [#/Vol]Ordere d By: Valdez Olivo 04-24-2025 RBC (Bld) [#/Vol] 2.95 10*6/uL Low 4.6-6.2 [facility] Serum creatinine measurement (mass/volume)Ordered By: Valdez Olivo on 04-24-2025 Creatinine [Mass/Vol] 1.28 mg/dL High 0.70-1.20 [facility] Serum glucose measurement (m ass/volume)Ordered By: Valdez Olivo on 04-24-2025 Glucose [Mass/Vol] 153 mg/dL High 70-99 [facility] Serum or plasma calcium [place] urement (mass/volume)Ordered By: Valdez Olivo 04-24-2025 Calcium [Mass/Vol] 8.6 mg/dL 7.6-11.0 [facility] Serum or plasma urea nitroge n measurement (mass/volume)Ordered By: Valdez Olivo on 04-24-2025 Urea nitrogen [Mass/Vol] 21 mg/dL High 4-19 [facility] Sodium levelOrdered By: Valdez Olivo on 04-24-2025 Sodium [Moles/Vol] 140 mmol/L 133-145 [facility] White blood cell (WBC) count Ordered By: Valdez Olivo on 04-24-2025 WBC (Bld) [#/Vol] 6.7 10*3/uL 4.4-11.0 [facility] Bedside Glucoseon 04-23-2025 FINGERSTICK GLU 164 mg/dL High 74-106 [facility] Comment on above: Result Comment: KODY GEMENT OF PATIENT CARE PER NURSING PROTOCOL Performed By: #### L 501.080 ####[facility] [address] [place], [address] FINGERSTICK GLU 127 mg/dL [address] Comment on above: Result Comment: KODY GEMENT OF PATIENT CARE PER NURSING PROTOCOL Performed By: #### L 501.080 ####[facility] [address] [place], [address] FINGERSTICK GLU 231 mg/dL High [address] [place] [address] Comment on above: Result Comment: KODY GEMENT OF PATIENT CARE PER NURSING PROTOCOL Performed By: #### L 501.080 ####[facility] [address] [place], [address] FINGERSTICK GLU 130 mg/dL High [address] [place] [address] Comment on above: Result Comment: KODY GEMENT OF PATIENT CARE PER NURSING PROTOCOL Performed By: #### L 501.080 ####[facility] [address] [place], [address] [facility] deOrdered By: Tonio Mccallum on 04-23-2025 Glucose [Mass/Vol] 127 mg/dL High 74-106 [facility] Bedside Glucoseon 04-22-2025 FINGERSTICK GLU 120 mg/dL High -106 [facility] Comment on above: Result Comment: KODY GEMENT OF PATIENT CARE PER NURSING PROTOCOL Performed By: #### L 501.080 ####[facility] [address] [place], [address] FINGERSTICK GLU 151 mg/dL High 74-106 [facility] Comment on above: Result Comment: KODY GEMENT OF PATIENT CARE PER NURSING PROTOCOL Performed By: #### L 501.080 ####[facility] [address] [place], [address] FINGERSTICK GLU 231 mg/dL High 74-106 [facility] Comment on above: Result Comment: KODY GEMENT OF PATIENT CARE PER NURSING PROTOCOL Performed By: #### L 501.080 ####[facility] [address] [place], [address] FINGERSTICK GLU 119 mg/dL High 74-106 [facility] Comment on above: Result Comment: KODY GEMENT OF PATIENT CARE PER NURSING PROTOCOL Performed By: #### L 501.080 ####[facility] [address] [place], [address] Anion gap in Serum or Plasma Ordered By: Tonio Mccallum on 04-21-2025 Anion gap [Moles/Vol] 10 mmol/L 5-15 [facility] BUN/creatinine ratioOrdered By: Tonio Mccallum on 04-21-2025 Urea nitrogen/Creatinine [Mass ratio] 20.6 mg/mg High 10-20 [facility] Basic Metabolic Profile (BMP )on 04-21-2025 BUN/CRE 20.6 RATIO High 10-20 [facility] Comment on above: Performed By: #### L 500.2500 ####[facility] [address] [place], [address] Calcium [Mass/Vol] 8.6 mg/dL Normal 7.6-11.0 [facility] Comment on above: Performed By: #### L 500.2500 ####[facility] [address] [place], [address] Chloride [Moles/Vol] 96 mmol/L Low 98-108 [facility] Comment on above: Performed By: #### L 500.2500 ####[facility] [address] [place], [address] CO2 [Moles/Vol] 29.6 mmol/L Normal 21.0-32.0 [facility] Comment on above: Performed By: #### L 500.2500 ####[facility] [address] [place], [address] Creatinine [Mass/Vol] 1.56 mg/dL High 0.70-1.20 [facility] Comment on above: Performed By: #### L 500.2500 ####[facility] [address] [place], [address] ECRCL 34.08 ml/min Low 50-250 [facility] Comment on above: Performed By: #### L 500.2500 ####[facility] [address] [place], [address] GAP 10 Normal 5-15 [facility] Comment on above: Performed By: #### L 500.2500 ####[facility] [address] [place], [address] GFR/1.73 sq M.predicted among non-blacks MDRD (S/P/Bld) [Vol rate/Area] 45 mL/min/{1.73_m2} Low >60 [facility] Comment on above: Result Comment: mL/m in/1.73m2 CKD-EPI Creatinine Equation (2020) Performed By: #### L 500.2500 ####[facility] [address] [place], [address] Glucose [Mass/Vol] 137 mg/dL High 70-99 [facility] Comment on above: Performed By: #### L 500.2500 ####[facility] [address] [place], [address] Potassium [Moles/Vol] 3.5 mmol/L Normal 3.3-5.1 [facility] Comment on above: Performed By: #### L 500.2500 ####[facility] [address] [place], [address] Sodium [Moles/Vol] 136 mmol/L Normal 133-145 [facility] Comment on above: Performed By: #### L 500.2500 ####[facility] [address] [place], [address] Urea nitrogen [Mass/Vol] 32 mg/dL High 4-19 [facility] Comment on above: Performed By: #### L 500.2500 ####[facility] [address] [place], [address] Bedside Glucoseon 04-21-2025 FINGERSTICK GLU 140 mg/dL High 74-106 [facility] Comment on above: Result Comment: KODY GEMENT OF PATIENT CARE PER NURSING PROTOCOL Performed By: #### L 501.080 ####[facility] [address] [place], [address] FINGERSTICK GLU 220 mg/dL High 74-106 [facility] Comment on above: Result Comment: KODY GEMENT OF PATIENT CARE PER NURSING PROTOCOL Performed By: #### L 501.080 ####[facility] [address] [place], [address] FINGERSTICK GLU 231 mg/dL High 74-106 [facility] Comment on above: Result Comment: KODY GEMENT OF PATIENT CARE PER NURSING PROTOCOL Performed By: #### L 501.080 ####[facility] [address] [place], [address] FINGERSTICK GLU 134 mg/dL High 74-106 [facility] Comment on above: Result Comment: KODY GEMENT OF PATIENT CARE PER NURSING PROTOCOL Performed By: #### L 501.080 ####[facility] [address] [place], [address] Carbon dioxide, total [Moles /volume] in Central venous bloodOrdered By: Tonio Mccallum on 04-21-2025 CO2 [Moles/Vol] 29.6 mmol/L 21.0-32.0 [facility] Chloride assayOrdered By: Min Mccallum on 04-21-2025 Chloride [Moles/Vol] 96 mmol/L Low 98-108 [facility] Electrocardiogram reportOrde red By: Willian Glaser on 04-21-2025 EKG study [facility] Work Phone: Glomerular filtration rate ( GFR) estimation/1.73 sq m using serum, plasma, or whole bOrdered By: Tonio Mccallum on 04-21-2025 GFR/1.73 sq M.predicted among non-blacks MDRD (S/P/Bld) [Vol rate/Area] 45 mL/min/{1.73_m2} Low >60 [facility] Potassium measurement (mass/ volume)Ordered By: Tonio Mccallum on 04-21-2025 Potassium (Unsp spec) [Mass/Vol] 3.5 mmol/L 3.3-5.1 [facility] Serum creatinine measurement (mass/volume)Ordered By: Tonio Mccallum on 04-21-2025 Creatinine [Mass/Vol] 1.56 mg/dL High 0.70-1.20 [facility] Serum glucose measurement (m ass/volume)Ordered By: Tonio Mccallum on 04-21-2025 Glucose [Mass/Vol] 137 mg/dL High 70-99 [facility] Serum or plasma calcium kings[place] urement (mass/volume)Ordered By: Tonio Mccallum on 04-21-2025 Calcium [Mass/Vol] 8.6 mg/dL 7.6-11.0 [facility] Serum or plasma urea nitroge n measurement (mass/volume)Ordered By: Tonio Mccallum on 04-21-2025 Urea nitrogen [Mass/Vol] 32 mg/dL High 4-19 [facility] Sodium levelOrdered By: Tonio Mccallum on 04-21-2025 Sodium [Moles/Vol] 136 mmol/L 133-145 [facility] Basic Metabolic Profile (BMP )on 04-20-2025 BUN/CRE 22.4 RATIO High 10-20 [facility] Comment on above: Performed By: #### L 100.0500, L500.2500 ####[facility] [address] [place], [address] Calcium [Mass/Vol] 9.1 mg/dL Normal 7.6-11.0 [facility] Comment on above: Performed By: #### L 100.0500, L500.2500 ####[facility] [address] [place], [address] Chloride [Moles/Vol] 91 mmol/L Low 98-108 [facility] Comment on above: Performed By: #### L 100.0500, L500.2500 ####[facility] [address] [place], [address] CO2 [Moles/Vol] 32.1 mmol/L High 21.0-32.0 [facility] Comment on above: Performed By: #### L 100.0500, L500.2500 ####[facility] [address] [place], [address] Creatinine [Mass/Vol] 1.65 mg/dL High 0.70-1.20 [facility] Comment on above: Performed By: #### L 100.0500, L500.2500 ####[facility] [address] [place], [address] ECRCL 32.22 ml/min Low 50-250 [facility] Comment on above: Performed By: #### L 100.0500, L500.2500 ####[facility] [address] [place], [address] GAP 12 Normal 5-15 [facility] Comment on above: Performed By: #### L 100.0500, L500.2500 ####[facility] [address] [place], [address] GFR/1.73 sq M.predicted among non-blacks MDRD (S/P/Bld) [Vol rate/Area] 42 mL/min/{1.73_m2} Low >60 [facility] Comment on above: Result Comment: mL/m in/1.73m2 CKD-EPI Creatinine Equation (2020) Performed By: #### L 100.0500, L500.2500 ####[facility] [address] [place], [address] Glucose [Mass/Vol] 154 mg/dL High 70-99 [facility] Comment on above: Performed By: #### L 100.0500, L500.2500 ####[facility] [address] [place], [address] Potassium [Moles/Vol] 3.4 mmol/L Normal 3.3-5.1 [facility] Comment on above: Performed By: #### L 100.0500, L500.2500 ####[facility] [address] [place], [address] Sodium [Moles/Vol] 135 mmol/L Normal 133-145 [facility] Comment on above: Performed By: #### L 100.0500, L500.2500 ####[facility] [address] [place], [address] Urea nitrogen [Mass/Vol] 37 mg/dL High 4-19 [facility] Comment on above: Performed By: #### L 100.0500, L500.2500 ####[facility] [address] [place], [address] Bedside Glucoseon 04-20-2025 FINGERSTICK GLU 213 mg/dL High 74-106 [facility] Comment on above: Result Comment: KODY STRONG OF PATIENT CARE PER NURSING PROTOCOL Performed By: #### L 501.080 ####[facility] [address] [place], [address] FINGERSTICK GLU 173 mg/dL High 74-106 [facility] Comment on above: Result Comment: KODY GEMENT OF PATIENT CARE PER NURSING PROTOCOL Performed By: #### L 501.080 ####[facility] [address] [place], [address] FINGERSTICK GLU 178 mg/dL High 74-106 [facility] Comment on above: Result Comment: KODY GEMENT OF PATIENT CARE PER NURSING PROTOCOL Performed By: #### L 501.080 ####[facility] [address] [place], [address] FINGERSTICK GLU 156 mg/dL High 74-106 [facility] Comment on above: Result Comment: KODY GEMENT OF PATIENT CARE PER NURSING PROTOCOL Performed By: #### L 501.080 ####[facility] [address] [place], [address] CBC-Complete Blood Cnt No Di on 04-20-2025 Erythrocyte distribution width (RBC) [Ratio] 17.1 % High 11.6-14.6 [facility] Comment on above: Performed By: #### L 100.0500, L500.2500 ####[facility] [address] [place], [address] Hematocrit (Bld) [Volume fraction] 29.4 % Low 40-54 [facility] Comment on above: Performed By: #### L 100.0500, L500.2500 ####[facility] [address] [place], [address] Hemoglobin (Bld) [Mass/Vol] 9.1 g/dL Low 13.0-16.5 [facility] Comment on above: Performed By: #### L 100.0500, L500.2500 ####[facility] [address] [place], [address] MCH (RBC) [Entitic mass] 26.8 pg Low 27.0-32.0 [facility] Comment on above: Performed By: #### L 100.0500, L500.2500 ####[facility] [address] [place], [address] MCHC (RBC) [Mass/Vol] 31.0 g/dL Low 32-36 [facility] Comment on above: Performed By: #### L 100.0500, L500.2500 ####[facility] [address] [place], [address] MCV (RBC) [Entitic vol] 86.7 fL Normal 80-94 W [facility] Comment on above: Performed By: #### L 100.0500, L500.2500 ####[facility] [address] [place], [address] Platelet mean volume (Bld) [Entitic vol] 11.0 fL Normal 6.2-12.0 [facility] Comment on above: Performed By: #### L 100.0500, L500.2500 ####[facility] [address] [place], [address] Platelets (Bld) [#/Vol] 192 10*3/uL Normal 150-450 [facility] Comment on above: Performed By: #### L 100.0500, L500.2500 ####[facility] [address] [place], [address] RBC (Bld) [#/Vol] 3.39 10*6/uL Low 4.6-6.2 [facility] Comment on above: Performed By: #### L 100.0500, L500.2500 ####[facility] [address] [place], [address] RDW SD 53.4 fl High 35.1-43.9 [facility] Comment on above: Performed By: #### L 100.0500, L500.2500 ####[facility] [address] [place], [address] WBC (Bld) [#/Vol] 9.9 10*3/uL Normal 4.4-11.0 [facility] Comment on above: Performed By: #### L 100.0500, L500.2500 ####[facility] [address] [place], [address] Erythrocyte distribution wid th ratioOrdered By: Kwaku Narayanan on 04-20-2025 Erythrocyte distribution width (RBC) [Ratio] 17.1 % High 11.6-14.6 [facility] Erythrocyte distribution wid th standard deviationOrdered By: Kwaku Narayanan on 04-20-2025 Erythrocyte distribution width (RBC) [Ratio] 53.4 fl High 35.1-43.9 [facility] Hematocrit Auto (Bld) [Volum e fraction]Ordered By: Kwaku Narayanan on 04-20-2025 Hematocrit (Bld) [Volume fraction] 29.4 % Low 40-54 [facility] Hemoglobin measurementOrdere d By: Kwaku Narayanan on 04-20-2025 Hemoglobin (Bld) [Mass/Vol] 9.1 g/dL Low 13.0-16.5 [facility] MCV (mean corpuscular volume ) determinationOrdered By: Kwaku Narayanan on 04-20-2025 MCV (RBC) [Entitic vol] 86.7 fL 80-94 W [facility] Mean corpuscular hemoglobin (MCH) determinationOrdered By: Kwaku Narayanan on 04-20-2025 MCH (RBC) [Entitic mass] 26.8 pg Low 27.0-32.0 [facility] Platelet countOrdered By: Sean Narayanan on 04-20-2025 Platelets (Bld) [#/Vol] 192 10*3/uL 150-450 [facility] RBC Auto (Bld) [#/Vol]Ordere d By: Kwaku Narayanan on 04-20-2025 RBC (Bld) [#/Vol] 3.39 10*6/uL Low 4.6-6.2 [facility] White blood cell (WBC) count Ordered By: Kwaku Narayanan on 04-20-2025 WBC (Bld) [#/Vol] 9.9 10*3/uL 4.4-11.0 [facility] 12 Lead EKGon 04-19-2025 12 Lead EKG Normal [facility] Absolute lymphocyte countOrd ered By: Casper Iniguez on 04-19-2025 Lymphocytes Auto (Unsp spec) [#/Vol] 0.97 10*3/uL 0.83-4.51 [facility] Anion gap in Serum or Plasma Ordered By: Casper Iniguez on 04-19-2025 Anion gap [Moles/Vol] 11 mmol/L 5-15 [facility] Automated lymphocyte count a s percentage of total leukocytesOrdered By: Casper Iniguez on 04-19-2025 Lymphocytes/100 WBC Auto (Unsp spec) 9.1 % Low 19-41 [facility] BUN/creatinine ratioOrdered By: Casper Iniguez on 04-19-2025 Urea nitrogen/Creatinine [Mass ratio] 22.7 mg/mg High 10-20 [facility] Basophil percentageOrdered B y: Casper Iniguez on 04-19-2025 Basophils/100 WBC (Bld) 0.3 % 0-1 W [facility] Bedside Glucoseon 04-19-2025 FINGERSTICK GLU 178 mg/dL High 74-106 [facility] Comment on above: Result Comment: KODY GEMENT OF PATIENT CARE PER NURSING PROTOCOL Performed By: #### L 501.080 ####[facility] [address] [facility] [address] FINGERSTICK GLU 193 mg/dL High 74-106 [facility] Comment on above: Result Comment: KODY GEMENT OF PATIENT CARE PER NURSING PROTOCOL Performed By: #### L 501.080 ####[facility] [address] [facility] [address] FINGERSTICK GLU 91 mg/dL Normal -[address] [place] [address] Comment on above: Result Comment: KODY GEMENT OF PATIENT CARE PER NURSING PROTOCOL Performed By: #### L 501.080 ####[facility] [address] [place], [address] FINGERSTICK GLU 123 mg/dL High 74-106 [facility] Comment on above: Result Comment: KODY STRONG OF PATIENT CARE PER NURSING PROTOCOL Performed By: #### L 501.080 ####[facility] [address] [place], [address] Bilirubin, totalOrdered By: Casper Iniguez on 04-19-2025 Bilirubin [Mass/Vol] 0.55 mg/dL 0.00-1.30 [facility] CBC W/Diff, Automatedon 03-22 Absolute Lymph 0.97 X10 3/uL Normal 0.83-4.51 [facility] Comment on above: Performed By: #### L 100.0100, L501.4021, L500.4050 ####[facility] [address] [place], [address] Absolute Neut 8.0 X10 3/uL High 2.0-7.7 [facility] Comment on above: Performed By: #### L 100.0100, L501.4021, L500.4050 ####[facility] [address] [place], [address] Basophils/100 WBC (Bld) 0.3 % Normal 0-1 W [facility] Comment on above: Performed By: #### L 100.0100, L501.4021, L500.4050 ####[facility] [address] [place], [address] Eosinophils/100 WBC (Bld) 2.7 % Normal 0-5 [facility] Comment on above: Performed By: #### L 100.0100, L501.4021, L500.4050 ####[facility] [address] [place], [address] Erythrocyte distribution width (RBC) [Ratio] 17.2 % High 11.6-14.6 [facility] Comment on above: Performed By: #### L 100.0100, L501.4021, L500.4050 ####[facility] [address] [place], [address] Hematocrit (Bld) [Volume fraction] 30.6 % Low 40-54 [facility] Comment on above: Performed By: #### L 100.0100, L501.4021, L500.4050 ####[facility] [address] [place], [address] Hemoglobin (Bld) [Mass/Vol] 9.6 g/dL Low 13.0-16.5 [facility] Comment on above: Performed By: #### L 100.0100, L501.4021, L500.4050 ####[facility] [address] [place], [address] IG% 1.600 High 0.0-0.9 [facility] Comment on above: Result Comment: IG% - Immature Granulocytes (promyelocytes, myelocytes andmetamyelocytes) > 1% indicates that a LEFT SHIFT is Present. Performed By: #### L 100.0100, L501.4021, L500.4050 ####[facility] [address] [place], [address] Lymphocytes/100 WBC (Bld) 9.1 % Low 19-41 [facility] Comment on above: Performed By: #### L 100.0100, L501.4021, L500.4050 ####[facility] [address] [place], [address] MCH (RBC) [Entitic mass] 27.4 pg Normal 27.0-32.0 [facility] Comment on above: Performed By: #### L 100.0100, L501.4021, L500.4050 ####[facility] [address] [place], [address] MCHC (RBC) [Mass/Vol] 31.4 g/dL Low 32-36 [facility] Comment on above: Performed By: #### L 100.0100, L501.4021, L500.4050 ####[facility] [address] [place], [address] MCV (RBC) [Entitic vol] 87.2 fL Normal 80-94 W [facility] Comment on above: Performed By: #### L 100.0100, L501.4021, L500.4050 ####[facility] [address] [place], [address] Monocytes/100 WBC (Bld) 11.3 % High 0-10 [facility] Comment on above: Performed By: #### L 100.0100, L501.4021, L500.4050 ####[facility] [address] [place], [address] Neutrophils/100 WBC (Bld) 75.0 % High 47-70 [facility] Comment on above: Performed By: #### L 100.0100, L501.4021, L500.4050 ####[facility] [address] [place], [address] Nucleated RBC (Bld) [#/Vol] 0 10*3/uL Normal 0-5 [facility] Comment on above: Performed By: #### L 100.0100, L501.4021, L500.4050 ####[facility] [address] [place], [address] Platelet mean volume (Bld) [Entitic vol] 11.1 fL Normal 6.2-12.0 [facility] Comment on above: Performed By: #### L 100.0100, L501.4021, L500.4050 ####[facility] [address] [place], [address] Platelets (Bld) [#/Vol] 204 10*3/uL Normal 150-450 [facility] Comment on above: Performed By: #### L 100.0100, L501.4021, L500.4050 ####[facility] [address] [place], [address] RBC (Bld) [#/Vol] 3.51 10*6/uL Low 4.6-6.2 [facility] Comment on above: Performed By: #### L 100.0100, L501.4021, L500.4050 ####[facility] [address] [place], [address] RDW SD 54.8 fl High 35.1-43.9 [facility] Comment on above: Performed By: #### L 100.0100, L501.4021, L500.4050 ####[facility] [address] [place], [address] WBC (Bld) [#/Vol] 10.7 10*3/uL Normal 4.4-11.0 [facility] Comment on above: Performed By: #### L 100.0100, L501.4021, L500.4050 ####[facility] [address] [place], [address] Carbon dioxide, total [Moles /volume] in Central venous bloodOrdered By: Casper Iniguez on 04-19-2025 CO2 [Moles/Vol] 37.3 mmol/L High 21.0-32.0 [facility] Chest 1 View (Portable)on Chest 1 View (Portable) Normal W [facility] Chloride assayOrdered By: Akin Iniguez on 04-19-2025 Chloride [Moles/Vol] 87 mmol/L Low 98-108 [facility] Comprehensive Metabolic Prof ilon 04-19-2025 Albumin [Mass/Vol] 3.4 g/dL Normal 3.4-4.8 [facility] Comment on above: Performed By: #### L 100.0100, L501.4021, L500.4050 ####[facility] [address] [place], [address] Albumin/Globulin [Mass ratio] 1.0 {ratio} Normal 0.9-2.4 [facility] Comment on above: Performed By: #### L 100.0100, L501.4021, L500.4050 ####[facility] [address] [place], [address] ALK PHOS 79 U/L Normal 40-129 [facility] Comment on above: Performed By: #### L 100.0100, L501.4021, L500.4050 ####[facility] [address] [place], [address] ALT [Catalytic activity/Vol] 27 U/L Normal <=46 [facility] Comment on above: Performed By: #### L 100.0100, L501.4021, L500.4050 ####[facility] [address] [place], [address] AST [Catalytic activity/Vol] 30 U/L Normal <=37 [facility] Comment on above: Performed By: #### L 100.0100, L501.4021, L500.4050 ####[facility] [address] [place], [address] Bilirubin [Mass/Vol] 0.55 mg/dL Normal 0.00-1.30 [facility] Comment on above: Performed By: #### L 100.0100, L501.4021, L500.4050 ####[facility] [address] [place], [address] BUN/CRE 22.7 RATIO High 10-20 [facility] Comment on above: Performed By: #### L 100.0100, L501.4021, L500.4050 ####[facility] [address] [place], [address] Calcium [Mass/Vol] 9.4 mg/dL Normal 7.6-11.0 [facility] Comment on above: Performed By: #### L 100.0100, L501.4021, L500.4050 ####[facility] [address] [place], [address] Chloride [Moles/Vol] 87 mmol/L Low 98-108 [facility] Comment on above: Performed By: #### L 100.0100, L501.4021, L500.4050 ####[facility] [address] [place], [address] CO2 [Moles/Vol] 37.3 mmol/L High 21.0-32.0 [facility] Comment on above: Performed By: #### L 100.0100, L501.4021, L500.4050 ####[facility] [address] [place], [address] Creatinine [Mass/Vol] 1.74 mg/dL High 0.70-1.20 [facility] Comment on above: Performed By: #### L 100.0100, L501.4021, L500.4050 ####[facility] [address] [place], [address] ECRCL 30.56 ml/min Low 50-250 [facility] Comment on above: Performed By: #### L 100.0100, L501.4021, L500.4050 ####[facility] [address] [place], [address] GAP 11 Normal 5-15 [facility] Comment on above: Performed By: #### L 100.0100, L501.4021, L500.4050 ####[facility] [address] [place], [address] GFR/1.73 sq M.predicted among non-blacks MDRD (S/P/Bld) [Vol rate/Area] 39 mL/min/{1.73_m2} Low >60 [facility] Comment on above: Result Comment: mL/m in/1.73m2 CKD-EPI Creatinine Equation (2020) Performed By: #### L 100.0100, L501.4021, L500.4050 ####[facility] [address] [place], [address] Globulin (S) [Mass/Vol] 3.4 g/dL Normal 2.2-4.2 [facility] Comment on above: Performed By: #### L 100.0100, L501.4021, L500.4050 ####[facility] [address] [place] [place], [address] Glucose [Mass/Vol] 132 mg/dL High 70-99 [facility] Comment on above: Performed By: #### L 100.0100, L501.4021, L500.4050 ####[facility] [address] [place], [address] Potassium [Moles/Vol] 3.5 mmol/L Normal 3.3-5.1 [facility] Comment on above: Performed By: #### L 100.0100, L501.4021, L500.4050 ####[facility] [address] [place], [address] Sodium [Moles/Vol] 136 mmol/L Normal 133-145 [facility] Comment on above: Performed By: #### L 100.0100, L501.4021, L500.4050 ####[facility] [address] [place], [address] T PROT 6.8 g/dL Normal 5.9-8.4 [facility] Comment on above: Performed By: #### L 100.0100, L501.4021, L500.4050 ####[facility] [address] [place], [address] Urea nitrogen [Mass/Vol] 40 mg/dL High 4-19 [facility] Comment on above: Performed By: #### L 100.0100, L501.4021, L500.4050 ####[facility] [address] [facility] [place], [address] Emergency Department Summary on 04-19-2025 Emergency Department Summary Normal [facility] Eosinophil percentageOrdered By: Casper Iniguez on 04-19-2025 Eosinophils/100 WBC (Bld) 2.7 % 0-5 [facility] Erythrocyte distribution wid th ratioOrdered By: Casper Iniguez on 04-19-2025 Erythrocyte distribution width (RBC) [Ratio] 17.2 % High 11.6-14.6 [facility] Erythrocyte distribution wid th standard deviationOrdered By: Casper Iniguez on 04-19-2025 Erythrocyte distribution width (RBC) [Ratio] 54.8 fl High 35.1-43.9 [facility] Glomerular filtration rate ( GFR) estimation/1.73 sq m using serum, plasma, or whole bOrdered By: Casper Iniguez on 04-19-2025 GFR/1.73 sq M.predicted among non-blacks MDRD (S/P/Bld) [Vol rate/Area] 39 mL/min/{1.73_m2} Low >60 [facility] Glucose measurement at [facility] deOrdered By: Valdez Olivo on 04-19-2025 Glucose [Mass/Vol] 123 mg/dL High 74-106 [facility] H AND P Exam - [facility] 04-19-2025 H&P Exam - Hospitalist Normal [facility] Hematocrit Auto (Bld) [Volum e fraction]Ordered By: Casper Iniguez on 04-19-2025 Hematocrit (Bld) [Volume fraction] 30.6 % Low 40-54 [facility] Hemoglobin measurementOrdere d By: Casper Iniguez on 04-19-2025 Hemoglobin (Bld) [Mass/Vol] 9.6 g/dL Low 13.0-16.5 [facility] Immature granulocytes/100 WB C Auto (Bld)Ordered By: Casper Iniguez on 04-19-2025 Immature granulocytes/100 WBC (Bld) 1.600 % High 0.0-0.9 [facility] L501.4021on 04-19-2025 Trop T High Sen 99 ng/L Invalid Interpretation Code <=22 [facility] Comment on above: Result Comment: Crit ical Result(s) Called at 0923: by: RENAE ALICEA. ??Results read back by same. Performed By: #### L 100.0100, L501.4021, L500.4050 ####[facility] [address] [place], [address] MCV (mean corpuscular volume ) determinationOrdered By: Casper Iniguez on 04-19-2025 MCV (RBC) [Entitic vol] 87.2 fL 80-94 W [facility] Magnesiumon 04-19-2025 Magnesium [Mass/Vol] 2.1 mg/dL Normal 1.5-2.2 [facility] Comment on above: Performed By: #### L 501.2300, L501.5200, L503.7505 ####[facility] [address] [place], [place], [address] Magnesium measurement (mass/ volume)Ordered By: Kwaku Narayanan on 04-19-2025 Magnesium (Unsp spec) [Mass/Vol] 2.1 mg/dL 1.5-2.2 [facility] Mean corpuscular hemoglobin (MCH) determinationOrdered By: Casper Iniguez on 04-19-2025 MCH (RBC) [Entitic mass] 27.4 pg 27.0-32.0 [facility] Monocyte percentageOrdered B y: Casper Iniguez on 04-19-2025 Monocytes/100 WBC (Bld) 11.3 % High 0-10 W [facility] Natriuretic peptide.B prohor girish N-Terminal [Mass/volume] in Serum or PlasmaOrdered By: Kwaku Narayanan on 04-19-2025 Natriuretic peptide.B prohormone N-Terminal [Mass/Vol] 3388 pg/mL High <1800 [facility] Neutrophil percentageOrdered By: Casper Iniguez on 04-19-2025 Neutrophils/100 WBC (Bld) 75.0 % High 47-70 [facility] No Panel InformationOrdered By: Casper Iniguez on 04-19-2025 30 U/L <38 [facility] Phosphoruson 04-19-2025 Phosphate [Mass/Vol] 3.9 mg/dL Normal 2.7-4.5 [facility] Comment on above: Performed By: #### L 501.2300, L501.5200, L503.7505 ####[facility] [address] [place], [place], [id number] Platelet countOrdered By: Akin Iniguez on 04-19-2025 Platelets (Bld) [#/Vol] 204 10*3/uL 150-450 [facility] Potassium measurement (mass/ volume)Ordered By: Casper Iniguez on 04-19-2025 Potassium (Unsp spec) [Mass/Vol] 3.5 mmol/L 3.3-5.1 [facility] Pro- Brain NATRIURETIC PEPTI Adrienne 04-19-2025 Natriuretic peptide B (Bld) [Mass/Vol] 3388 pg/mL High <=1800 [facility] Comment on above: Result Comment: Hear t Failure Unlikely: < 300 pg/mLHeart Failure Likely< 50 Years: > 450 pg/mL50-75 Years: > 900 pg/mL>75 Years: > 1800 pg/mL Performed By: #### L 501.2300, L501.5200, L503.7505 ####[facility] [address] [place], [place], [address] RBC Auto (Bld) [#/Vol]Ordere d By: Casper Iniguez on 04-19-2025 RBC (Bld) [#/Vol] 3.51 10*6/uL Low 4.6-6.2 [facility] Serum creatinine measurement (mass/volume)Ordered By: Casper Iniguez on 04-19-2025 Creatinine [Mass/Vol] 1.74 mg/dL High 0.70-1.20 [facility] Serum globulin measurementOr dered By: Casper Iniguez on 04-19-2025 Globulin (S) [Mass/Vol] 3.4 g/dL 2.2-4.2 W [facility] Serum glucose measurement (m ass/volume)Ordered By: Casper Iniguez on 04-19-2025 Glucose [Mass/Vol] 132 mg/dL High 70-99 [facility] Serum or plasma alanine ortiz otransferase (ALT) measurementOrdered By: Casper Iniguez on 04-19-2025 ALT [Catalytic activity/Vol] 27 U/L <47 [facility] Serum or plasma albumin [place] urement (mass/volume)Ordered By: Casper Iniguez on 04-19-2025 Albumin [Mass/Vol] 3.4 g/dL 3.4-4.8 [facility] Serum or plasma albumin/glob ulin mass ratioOrdered By: Casper Iniguez on 04-19-2025 Albumin/Globulin [Mass ratio] 1.0 {ratio} 0.9-2.4 [facility] Serum or plasma alkaline roosevelt sphatase measurementOrdered By: Casper Iniguez on 04-19-2025 ALP [Catalytic activity/Vol] 79 U/L 40-129 [facility] Serum or plasma calcium kingsley urement (mass/volume)Ordered By: Casper Iniguez on 04-19-2025 Calcium [Mass/Vol] 9.4 mg/dL 7.6-11.0 [facility] Serum or plasma urea nitroge n measurement (mass/volume)Ordered By: Casper Iniguez on 04-19-2025 Urea nitrogen [Mass/Vol] 40 mg/dL High 4-19 [facility] Sodium levelOrdered By: Rema Iniguez on 04-19-2025 Sodium [Moles/Vol] 136 mmol/L 133-145 [facility] Total proteinOrdered By: Shira Iniguez on 04-19-2025 Protein [Mass/Vol] 6.8 g/dL 5.9-8.4 [facility] Troponin T HS 2 HRon 025 Trop T High Sen 95 ng/L Invalid Interpretation Code <=22 [facility] Comment on above: Result Comment: Crit ical Result(s) Called at 1126: by: RENAE GIRON. ??Results read back by same. Performed By: #### L 499.0042 ####[facility] [address] [place], [place], [id number] Troponin T HS 4 HRon 025 Trop T High Sen 93 ng/L Invalid Interpretation Code <=22 [facility] Comment on above: Result Comment: Crit ical Result(s) Called at 1326: by: RENAE GIRON. ??Results read back by same. Performed By: #### L 499.0043 ####[facility] [address] [place], [place], [address] Troponin T.cardiac [Mass/vol ume] in Serum or Plasma by High sensitivity methodOrdered By: Casper Iniguez on 04-19-2025 Troponin T.cardiac High sensitivity method [Mass/Vol] 93 ng/L High <22 [facility] Troponin T.cardiac High sensitivity method [Mass/Vol] 95 ng/L High <22 [facility] Troponin T.cardiac High sensitivity method [Mass/Vol] 99 ng/L High <22 [facility] White blood cell (WBC) count Ordered By: Casper Iniguez on 04-19-2025 WBC (Bld) [#/Vol] 10.7 10*3/uL 4.4-11.0 [facility] Absolute lymphocyte countOrd ered By: Valdez Olivo on 04-18-2025 Lymphocytes Auto (Unsp spec) [#/Vol] 0.61 10*3/uL Low 0.83-4.51 [facility] Anion gap in Serum or Plasma Ordered By: Valdez Olivo on 04-18-2025 Anion gap [Moles/Vol] 12 mmol/L 5-15 [facility] Automated lymphocyte count a s percentage of total leukocytesOrdered By: Valdez Olivo on 04-18-2025 Lymphocytes/100 WBC Auto (Unsp spec) 6.2 % Low 19-41 [facility] BUN/creatinine ratioOrdered By: Valdez Olivo on 04-18-2025 Urea nitrogen/Creatinine [Mass ratio] 25.1 mg/mg High 10-20 [facility] Basic Metabolic Profile (BMP )on 04-18-2025 BUN/CRE 25.1 RATIO High 10-20 [facility] Comment on above: Performed By: #### L 100.0100, L500.2500 ####[facility] [address] [place], [address] Calcium [Mass/Vol] 9.1 mg/dL Normal 7.6-11.0 [facility] Comment on above: Performed By: #### L 100.0100, L500.2500 ####[facility] [address] [place], [address] Chloride [Moles/Vol] 89 mmol/L Low 98-108 [facility] Comment on above: Performed By: #### L 100.0100, L500.2500 ####[facility] [address] [place], [address] CO2 [Moles/Vol] 36.0 mmol/L High 21.0-32.0 [facility] Comment on above: Performed By: #### L 100.0100, L500.2500 ####[facility] [address] [place], [address] Creatinine [Mass/Vol] 1.73 mg/dL High 0.70-1.20 [facility] Comment on above: Performed By: #### L 100.0100, L500.2500 ####[facility] [address] [place], [address] ECRCL 30.73 ml/min Low 50-250 [facility] Comment on above: Performed By: #### L 100.0100, L500.2500 ####[facility] [address] [place], [address] GAP 12 Normal 5-15 [facility] Comment on above: Performed By: #### L 100.0100, L500.2500 ####[facility] [address] [place], [address] GFR/1.73 sq M.predicted among non-blacks MDRD (S/P/Bld) [Vol rate/Area] 39 mL/min/{1.73_m2} Low >60 [facility] Comment on above: Result Comment: mL/m in/1.73m2 CKD-EPI Creatinine Equation (2020) Performed By: #### L 100.0100, L500.2500 ####[facility] [address] [place], [address] Glucose [Mass/Vol] 104 mg/dL High 70-99 [facility] Comment on above: Performed By: #### L 100.0100, L500.2500 ####[facility] [address] [place], [address] Potassium [Moles/Vol] 3.4 mmol/L Normal 3.3-5.1 [facility] Comment on above: Performed By: #### L 100.0100, L500.2500 ####[facility] [address] [place], [address] Sodium [Moles/Vol] 137 mmol/L Normal 133-145 [facility] Comment on above: Performed By: #### L 100.0100, L500.2500 ####[facility] [address] [place], [address] Urea nitrogen [Mass/Vol] 43 mg/dL High 4-19 [facility] Comment on above: Performed By: #### L 100.0100, L500.2500 ####[facility] [address] [place], [address] BUN Normal 4-19 [facility] Comment on above: Result Comment: Canc elled via OM: Order cancelled - Patient discharged Performed By: #### L 100.0100, L500.2500 ####[facility] [address] [place], [address] BUN/CRE Normal 10-20 [facility] Comment on above: Result Comment: Canc elled via OM: Order cancelled - Patient discharged Performed By: #### L 100.0100, L500.2500 ####[facility] [address] [place], [address] Calcium Normal 7.6-11.0 [facility] Comment on above: Result Comment: Canc elled via OM: Order cancelled - Patient discharged Performed By: #### L 100.0100, L500.2500 ####[facility] [address] [place], [address] CL Normal 98-108 [facility] Comment on above: Result Comment: Canc elled via OM: Order cancelled - Patient discharged Performed By: #### L 100.0100, L500.2500 ####[facility] [address] [place], [address] CO2 Normal 21.0-32.0 [facility] Comment on above: Result Comment: Canc elled via OM: Order cancelled - Patient discharged Performed By: #### L 100.0100, L500.2500 ####[facility] [address] [place], [address] CREAT,SERUM Normal 0.70-1.20 [facility] Comment on above: Result Comment: Canc elled via OM: Order cancelled - Patient discharged Performed By: #### L 100.0100, L500.2500 ####[facility] [address] [place], [address] eGFR Normal >60 [facility] Comment on above: Result Comment: Canc elled via OM: Order cancelled - Patient discharged Performed By: #### L 100.0100, L500.2500 ####[facility] [address] [place], [address] GAP Normal 5-15 [facility] Comment on above: Result Comment: Canc elled via OM: Order cancelled - Patient discharged Performed By: #### L 100.0100, L500.2500 ####[facility] [address] [place], [address] GLU Normal 70-99 [facility] Comment on above: Result Comment: Canc elled via OM: Order cancelled - Patient discharged Performed By: #### L 100.0100, L500.2500 ####[facility] [address] [place], [address] Potassium Normal 3.3-5.1 [facility] Comment on above: Result Comment: Canc elled via OM: Order cancelled - Patient discharged Performed By: #### L 100.0100, L500.2500 ####[facility] [address] [place], [address] Basic Metabolic Profile (BMP) Normal 133-145 [facility] Comment on above: Result Comment: Canc elled via OM: Order cancelled - Patient discharged Performed By: #### L 100.0100, L500.2500 ####[facility] [address] [place], [address] Basophil percentageOrdered B y: Valdez Geovani on 04-18-2025 Basophils/100 WBC (Bld) 0.2 % 0-1 W [facility] Bedside Glucoseon 04-18-2025 FINGERSTICK GLU 217 mg/dL High 74-106 [facility] Comment on above: Result Comment: KODY GEMENT OF PATIENT CARE PER NURSING PROTOCOL Performed By: #### L 501.080 ####[facility] [address] [place], [address] FINGERSTICK GLU 161 mg/dL High 74-106 [facility] Comment on above: Result Comment: KODY GEMENT OF PATIENT CARE PER NURSING PROTOCOL Performed By: #### L 501.080 ####[facility] [address] [place], [address] FINGERSTICK GLU 211 mg/dL High 74-106 [facility] Comment on above: Result Comment: KODY GEMENT OF PATIENT CARE PER NURSING PROTOCOL Performed By: #### L 501.080 ####[facility] [address] [place], [address] FINGERSTICK GLU 99 mg/dL Normal 74-106 [facility] Comment on above: Result Comment: KODY GEMENT OF PATIENT CARE PER NURSING PROTOCOL Performed By: #### L 501.080 ####[facility] [address] [place], [address] CBC W/Diff, Automatedon 08-3 0-2024 Absolute Lymph 0.61 X10 3/uL Low 0.83-4.51 [facility] Comment on above: Performed By: #### L 100.0100, L500.2500 ####[facility] [address] [place], [address] Absolute Neut 7.7 X10 3/uL Normal 2.0-7.7 [facility] Comment on above: Performed By: #### L 100.0100, L500.2500 ####[facility] [address] [place], [address] Basophils/100 WBC (Bld) 0.2 % Normal 0-1 W [facility] Comment on above: Performed By: #### L 100.0100, L500.2500 ####[facility] [address] [place], [address] Eosinophils/100 WBC (Bld) 3.3 % Normal 0-5 [facility] Comment on above: Performed By: #### L 100.0100, L500.2500 ####[facility] [address] [place], [address] Erythrocyte distribution width (RBC) [Ratio] 17.0 % High 11.6-14.6 [facility] Comment on above: Performed By: #### L 100.0100, L500.2500 ####[facility] [address] [place], [address] Hematocrit (Bld) [Volume fraction] 28.6 % Low 40-54 [facility] Comment on above: Performed By: #### L 100.0100, L500.2500 ####[facility] [address] [place], [address] Hemoglobin (Bld) [Mass/Vol] 9.0 g/dL Low 13.0-16.5 [facility] Comment on above: Performed By: #### L 100.0100, L500.2500 ####[facility] [address] [place], [address] IG% 1.400 High 0.0-0.9 [facility] Comment on above: Result Comment: IG% - Immature Granulocytes (promyelocytes, myelocytes andmetamyelocytes) > 1% indicates that a LEFT SHIFT is Present. Performed By: #### L 100.0100, L500.2500 ####[facility] [address] [place], [address] Lymphocytes/100 WBC (Bld) 6.2 % Low 19-41 [facility] Comment on above: Performed By: #### L 100.0100, L500.2500 ####[facility] [address] [place], [address] MCH (RBC) [Entitic mass] 27.0 pg Normal 27.0-32.0 [facility] Comment on above: Performed By: #### L 100.0100, L500.2500 ####[facility] [address] [place], [address] MCHC (RBC) [Mass/Vol] 31.5 g/dL Low 32-36 [facility] Comment on above: Performed By: #### L 100.0100, L500.2500 ####[facility] [address] [place], [address] MCV (RBC) [Entitic vol] 85.9 fL Normal 80-94 W [facility] Comment on above: Performed By: #### L 100.0100, L500.2500 ####[facility] [address] [place], [address] Monocytes/100 WBC (Bld) 11.2 % High 0-10 W [facility] Comment on above: Performed By: #### L 100.0100, L500.2500 ####[facility] [address] [place], [address] Neutrophils/100 WBC (Bld) 77.7 % High 47-70 [facility] Comment on above: Performed By: #### L 100.0100, L500.2500 ####[facility] [address] [place], [address] Nucleated RBC (Bld) [#/Vol] 0 10*3/uL Normal 0-5 [facility] Comment on above: Performed By: #### L 100.0100, L500.2500 ####[facility] [address] [place], [address] Platelet mean volume (Bld) [Entitic vol] 10.5 fL Normal 6.2-12.0 [facility] Comment on above: Performed By: #### L 100.0100, L500.2500 ####[facility] [address] [place], [address] Platelets (Bld) [#/Vol] 186 10*3/uL Normal 150-450 [facility] Comment on above: Performed By: #### L 100.0100, L500.2500 ####[facility] [address] [place], [address] RBC (Bld) [#/Vol] 3.33 10*6/uL Low 4.6-6.2 [facility] Comment on above: Performed By: #### L 100.0100, L500.2500 ####[facility] [address] [place], [address] RDW SD 52.7 fl High 35.1-43.9 [facility] Comment on above: Performed By: #### L 100.0100, L500.2500 ####[facility] [address] [place], [address] WBC (Bld) [#/Vol] 9.9 10*3/uL Normal 4.4-11.0 [facility] Comment on above: Performed By: #### L 100.0100, L500.2500 ####[facility] [address] [place], [address] Absolute Neut Normal 2.0-7.7 [facility] Comment on above: Result Comment: Canc elled via OM: Order cancelled - Patient discharged Performed By: #### L 100.0100, L500.2500 ####[facility] [address] [place], [address] HCT Normal 40-54 [facility] Comment on above: Result Comment: Canc elled via OM: Order cancelled - Patient discharged Performed By: #### L 100.0100, L500.2500 ####[facility] [address] [place], [address] HGB Normal 13.0-16.5 [facility] Comment on above: Result Comment: Canc elled via OM: Order cancelled - Patient discharged Performed By: #### L 100.0100, L500.2500 ####[facility] [address] [place], [address] MCH Normal 27.0-32.0 [facility] Comment on above: Result Comment: Canc elled via OM: Order cancelled - Patient discharged Performed By: #### L 100.0100, L500.2500 ####[facility] [address] [place], [address] MCHC Normal 32-36 [facility] Comment on above: Result Comment: Canc elled via OM: Order cancelled - Patient discharged Performed By: #### L 100.0100, L500.2500 ####[facility] [address] [place], [address] MCV Normal 80-94 [facility] Comment on above: Result Comment: Canc elled via OM: Order cancelled - Patient discharged Performed By: #### L 100.0100, L500.2500 ####[facility] [address] [place], [address] NEUT% Normal 47-70 [facility] Comment on above: Result Comment: Canc elled via OM: Order cancelled - Patient discharged Performed By: #### L 100.0100, L500.2500 ####[facility] [address] [place], [address] PLT Normal 150-450 [facility] Comment on above: Result Comment: Canc elled via OM: Order cancelled - Patient discharged Performed By: #### L 100.0100, L500.2500 ####[facility] [address] [place], [address] RBC Normal 4.6-6.2 [facility] Comment on above: Result Comment: Canc elled via OM: Order cancelled - Patient discharged Performed By: #### L 100.0100, L500.2500 ####[facility] [address] [place], [address] RDW CV Normal 11.6-14.6 [facility] Comment on above: Result Comment: Canc elled via OM: Order cancelled - Patient discharged Performed By: #### L 100.0100, L500.2500 ####[facility] [address] [place], [address] RDW SD Normal 35.1-43.9 [facility] Comment on above: Result Comment: Canc elled via OM: Order cancelled - Patient discharged Performed By: #### L 100.0100, L500.2500 ####[facility] [address] [place], [address] WBC Normal 4.4-11.0 [facility] Comment on above: Result Comment: Canc elled via OM: Order cancelled - Patient discharged Performed By: #### L 100.0100, L500.2500 ####[facility] [address] [place], [address] Carbon dioxide, total [Moles /volume] in Central venous bloodOrdered By: Valdez Olivo on 04-18-2025 CO2 [Moles/Vol] 36.0 mmol/L High 21.0-32.0 [facility] Chloride assayOrdered By: Aiden Olivo on 04-18-2025 Chloride [Moles/Vol] 89 mmol/L Low 98-108 [facility] Eosinophil percentageOrdered By: Valdez Olivo 04-18-2025 Eosinophils/100 WBC (Bld) 3.3 % 0-5 [facility] Erythrocyte distribution wid th ratioOrdered By: Valdez Olivo on 04-18-2025 Erythrocyte distribution width (RBC) [Ratio] 17.0 % High 11.6-14.6 [facility] Erythrocyte distribution wid th standard deviationOrdered By: Valdez Olivo on 04-18-2025 Erythrocyte distribution width (RBC) [Ratio] 52.7 fl High 35.1-43.9 [facility] Glomerular filtration rate ( GFR) estimation/1.73 sq m using serum, plasma, or whole bOrdered By: Valdez Olivo on 04-18-2025 GFR/1.73 sq M.predicted among non-blacks MDRD (S/P/Bld) [Vol rate/Area] 39 mL/min/{1.73_m2} Low >60 [facility] Hematocrit Auto (Bld) [Volum e fraction]Ordered By: Valdez Olivo on 04-18-2025 Hematocrit (Bld) [Volume fraction] 28.6 % Low 40-54 [facility] Hemoglobin measurementOrdere d By: Valdez Olivo on 04-18-2025 Hemoglobin (Bld) [Mass/Vol] 9.0 g/dL Low 13.0-16.5 [facility] Immature granulocytes/100 WB C Auto (Bld)Ordered By: Valdez Olivo on 04-18-2025 Immature granulocytes/100 WBC (Bld) 1.400 % High 0.0-0.9 [facility] MCV (mean corpuscular volume ) determinationOrdered By: Valdez Olivo on 04-18-2025 MCV (RBC) [Entitic vol] 85.9 fL 80-94 W [facility] Mean corpuscular hemoglobin (MCH) determinationOrdered By: Valdez Olivo on 04-18-2025 MCH (RBC) [Entitic mass] 27.0 pg 27.0-32.0 [facility] Monocyte percentageOrdered B y: Valdez Olivo on 04-18-2025 Monocytes/100 WBC (Bld) 11.2 % High 0-10 W [facility] Neutrophil percentageOrdered By: Valdez Olivo on 04-18-2025 Neutrophils/100 WBC (Bld) 77.7 % High 47-70 [facility] Platelet countOrdered By: Aiden Olivo on 04-18-2025 Platelets (Bld) [#/Vol] 186 10*3/uL 150-450 [facility] Potassium measurement (mass/ volume)Ordered By: Valdez Olivo on 04-18-2025 Potassium (Unsp spec) [Mass/Vol] 3.4 mmol/L 3.3-5.1 [facility] RBC Auto (Bld) [#/Vol]Ordere d By: Valdez Olivo on 04-18-2025 RBC (Bld) [#/Vol] 3.33 10*6/uL Low 4.6-6.2 [facility] Serum creatinine measurement (mass/volume)Ordered By: Valdez Olivo on 04-18-2025 Creatinine [Mass/Vol] 1.73 mg/dL High 0.70-1.20 [facility] Serum glucose measurement (m ass/volume)Ordered By: Valdez Olivo on 04-18-2025 Glucose [Mass/Vol] 104 mg/dL High 70-99 [facility] Serum or plasma calcium [place] urement (mass/volume)Ordered By: Valdez Olivo on 04-18-2025 Calcium [Mass/Vol] 9.1 mg/dL 7.6-11.0 [facility] Serum or plasma urea nitroge n measurement (mass/volume)Ordered By: Valdez Olivo on 04-18-2025 Urea nitrogen [Mass/Vol] 43 mg/dL High 4-19 [facility] Sodium levelOrdered By: Valdez Olivo on 04-18-2025 Sodium [Moles/Vol] 137 mmol/L 133-145 [facility] White blood cell (WBC) count Ordered By: Valdez Olivo on 04-18-2025 WBC (Bld) [#/Vol] 9.9 10*3/uL 4.4-11.0 [facility] .Auto Diffon 04-17-2025 Basophil, Absolute 0.0 10 3/mcL Normal 0.0-0.3 [facility] Comment on above: Performed By: #### P ROBF, BFPR, PHBF, BFCT, GLUBF, LDBF #### [address] [address] Basophils/100 WBC (Bld) 0.6 % Normal 0.0-2.5 [facility] Comment on above: Performed By: #### P ROBF, BFPR, PHBF, BFCT, GLUBF, LDBF #### [address] [address] Eosinophil, Absolute 0.4 10 3/mcL Normal 0.0-0.7 [facility] Comment on above: Performed By: #### P ROBF, BFPR, PHBF, BFCT, GLUBF, LDBF #### [address] [address] Eosinophils/100 WBC (Bld) 4.2 % Normal 0.0-6.0 [facility] Comment on above: Performed By: #### P ROBF, BFPR, PHBF, BFCT, GLUBF, LDBF #### [address] [address] Lymphocyte, Absolute 0.5 10 3/mcL Low 0.9-4.3 [facility] Comment on above: Performed By: #### P ROBF, BFPR, PHBF, BFCT, GLUBF, LDBF #### [address] [address] Lymphocytes/100 WBC (Bld) 5.5 % Low 20.0-40.0 [facility] Comment on above: Performed By: #### P ROBF, BFPR, PHBF, BFCT, GLUBF, LDBF #### [address] [address] Monocyte, Absolute 0.8 10 3/mcL Normal 0.1-1.4 [facility] Comment on above: Performed By: #### P ROBF, BFPR, PHBF, BFCT, GLUBF, LDBF #### [address] [address] Monocytes/100 WBC (Bld) 9.6 % Normal 2.0-13.0 [facility] Comment on above: Performed By: #### P ROBF, BFPR, PHBF, BFCT, GLUBF, LDBF #### [address] [address] Neutrophils/100 WBC (Bld) 80.1 % High 50.0-75.0 [facility] Comment on above: Performed By: #### P ROBF, BFPR, PHBF, BFCT, GLUBF, LDBF #### [address] [address] .GFRon 04-17-2025 Estimated Glomerular Filtration Rate 43 ml/min/1.73sqm Normal [facility] Comment on above: Result [...] ROBF, BFPR, PHBF, BFCT, GLUBF, LDBF #### [address] [address] .NEUABSon 04-17-2025 Neutrophil, Absolute 7.1 10 3/mcL Normal 2.3-8.1 [facility] Comment on above: Performed By: #### P ROBF, BFPR, PHBF, BFCT, GLUBF, LDBF #### [place] [address] APTTon 04-17-2025 aPTT Coag (Bld) [Time] 73.1 s High 25.0-35.0 [facility] Comment on above: Result Comment: For Heparin anticoagulation therapy, the recommended therapeutic range is: 54-77 seconds (APTT Correlation with Anti-Xa therapeutic range of 0.3-0.7 units/ml). PLEASE REFERENCE THE PHARMACY PROTOCOL FOR DOSING. Performed By: #### P ROBF, BFPR, PHBF, BFCT, GLUBF, LDBF #### [place] [address] aPTT Coag (Bld) [Time] 68.5 s High 25.0-35.0 [facility] Comment on above: Result Comment: For Heparin anticoagulation therapy, the recommended therapeutic range is: 54-77 seconds (APTT Correlation with Anti-Xa therapeutic range of 0.3-0.7 units/ml). PLEASE REFERENCE THE PHARMACY PROTOCOL FOR DOSING. Performed By: #### P ROBF, BFPR, PHBF, BFCT, GLUBF, LDBF #### [place] [address] BFPRon 04-17-2025 Body Fluid Path Review Normal [facility] Comment on above: Order [...] ROBF, BFPR, PHBF, BFCT, GLUBF, LDBF #### [address] [address] Bedside Glucoseon 04-17-2025 FINGERSTICK GLU 191 mg/dL High 74-106 [facility] Comment on above: Result Comment: KODY STRONG OF PATIENT CARE PER NURSING PROTOCOL Performed By: #### L 501.080 ####[facility] [id number] [place], [address] CBCon 04-17-2025 Erythrocyte distribution width (RBC) [Ratio] 18.3 % High 11.5-15.5 [facility] Comment on above: Performed By: #### P ROBF, BFPR, PHBF, BFCT, GLUBF, LDBF #### [place] [address] Hematocrit (Bld) [Volume fraction] 27.4 % Low 40.0-52.0 [facility] Comment on above: Performed By: #### P ROBF, BFPR, PHBF, BFCT, GLUBF, LDBF #### [address] [address] Hgb 9.0 G/dL Low 13.0-17.5 [facility] Comment on above: Performed By: #### P ROBF, BFPR, PHBF, BFCT, GLUBF, LDBF #### [place] [id number] MCH (RBC) [Entitic mass] 27.3 pg Normal 27.0-33.0 [facility] Comment on above: Performed By: #### P ROBF, BFPR, PHBF, BFCT, GLUBF, LDBF #### [place] [id number] MCHC 32.7 G/dL Normal 32.0-36.0 [facility] Comment on above: Performed By: #### P ROBF, BFPR, PHBF, BFCT, GLUBF, LDBF #### [place] [id number] MCV (RBC) [Entitic vol] 83.4 fL Normal 81.0-100.0 [facility] Comment on above: Performed By: #### P ROBF, BFPR, PHBF, BFCT, GLUBF, LDBF #### [place] [address] Platelet 163 10 3/mcL Normal 150-450 [facility] Comment on above: Performed By: #### P ROBF, BFPR, PHBF, BFCT, GLUBF, LDBF #### [place] [address] Platelet mean volume (Bld) [Entitic vol] 8.4 fL Normal 6.4-10.5 [facility] Comment on above: Performed By: #### P ROBF, BFPR, PHBF, BFCT, GLUBF, LDBF #### [place] [address] RBC 3.29 10 6/mcL Low 4.50-6.00 [facility] Comment on above: Performed By: #### P ROBF, BFPR, PHBF, BFCT, GLUBF, LDBF #### [place] [id number] WBC 8.8 10 3/mcL Normal 4.5-10.8 [facility] Comment on above: Performed By: #### P ROBF, BFPR, PHBF, BFCT, GLUBF, LDBF #### [place] [address] CMPon 04-17-2025 Albumin Level 2.7 G/dL Low 3.2-4.8 [facility] Comment on above: Order Comment: vrb- called critical CO2 to KHURRAM Man 04/17/2025 06:09:20 EDT SAS Performed By: #### P ROBF, BFPR, PHBF, BFCT, GLUBF, LDBF #### [place] [address] Albumin/Globulin [Mass ratio] 0.8 {ratio} Low 0.9-1.6 [facility] Comment on above: Order Comment: vrb- called critical CO2 to KHURRAM Man 04/17/2025 06:09:20 EDT SAS Performed By: #### P ROBF, BFPR, PHBF, BFCT, GLUBF, LDBF #### [address] [address] ALP [Catalytic activity/Vol] 65 U/L Normal 38-126 [facility] Comment on above: Order Comment: vrb- called critical CO2 to KHURRAM Man 04/17/2025 06:09:20 EDT SAS Performed By: #### P ROBF, BFPR, PHBF, BFCT, GLUBF, LDBF #### [address] [address] ALT [Catalytic activity/Vol] 21 U/L Normal 12-55 [facility] Comment on above: Order Comment: vrb- called critical CO2 to KHURRAM Man 04/17/2025 06:09:20 EDT SAS Performed By: #### P ROBF, BFPR, PHBF, BFCT, GLUBF, LDBF #### [place] [id number] AST [Catalytic activity/Vol] 16 U/L Normal 8-34 [facility] Comment on above: Order Comment: vrb- called critical CO2 to KHURRAM Man 04/17/2025 06:09:20 EDT SAS Performed By: #### P ROBF, BFPR, PHBF, BFCT, GLUBF, LDBF #### [address] [address] Bili Total 0.40 mg/dL Normal 0.20-1.20 [facility] Comment on above: Order Comment: vrb- called critical CO2 to KHURRAM Man 04/17/2025 06:09:20 EDT SAS Result Comment: Use of this assay is not recommended for patients undergoing treatment with eltrombopag due to the potential for falsely elevated results. Performed By: #### P ROBF, BFPR, PHBF, BFCT, GLUBF, LDBF #### [address] [address] BUN/Creatinine Ratio 25.3 ratio High 10.0-22.0 [facility] Comment on above: Order Comment: vrb- called critical CO2 to RN Mando Man 04/17/2025 06:09:20 EDT SAS Performed By: #### P ROBF, BFPR, PHBF, BFCT, GLUBF, LDBF #### [address] [address] Calcium [Mass/Vol] 9.4 mg/dL Normal 8.7-10.4 [facility] Comment on above: Order Comment: vrb- called critical CO2 to RN Mando Man 04/17/2025 06:09:20 EDT SAS Performed By: #### P ROBF, BFPR, PHBF, BFCT, GLUBF, LDBF #### [address] [address] Chloride [Moles/Vol] 88 mmol/L Low 98-110 [facility] Comment on above: Order Comment: vrb- called critical CO2 to RN Mando Man 04/17/2025 06:09:20 EDT SAS Performed By: #### P ROBF, BFPR, PHBF, BFCT, GLUBF, LDBF #### [address] [address] Creatinine [Mass/Vol] 1.62 mg/dL High 0.60-1.40 [facility] Comment on above: Order Comment: vrb- called critical CO2 to RN Mando Man 04/17/2025 06:09:20 EDT SAS Result Comment: Test ing performed on Brightkit analyzer using enzymatic creatinine methodology. Performed By: #### P ROBF, BFPR, PHBF, BFCT, GLUBF, LDBF #### [address] [address] Globulin 3.5 G/dL Normal 2.5-4.2 [facility] Comment on above: Order Comment: vrb- called critical CO2 to RN Mando Man 04/17/2025 06:09:20 EDT SAS Performed By: #### P ROBF, BFPR, PHBF, BFCT, GLUBF, LDBF #### [address] [address] Glucose [Mass/Vol] 174 mg/dL High 82-115 [facility] Comment on above: Order Comment: vrb- called critical CO2 to RN Mando Man 04/17/2025 06:09:20 EDT SAS Performed By: #### P ROBF, BFPR, PHBF, BFCT, GLUBF, LDBF #### [address] [address] Potassium [Moles/Vol] 3.7 mmol/L Normal 3.5-5.0 [facility] Comment on above: Order Comment: vrb- called critical CO2 to RN Mando Man 04/17/2025 06:09:20 EDT SAS Performed By: #### P ROBF, BFPR, PHBF, BFCT, GLUBF, LDBF #### [address] [address] Sodium [Moles/Vol] 137 mmol/L Normal 136-145 [facility] Comment on above: Order Comment: vrb- called critical CO2 to RN Mando Man 04/17/2025 06:09:20 EDT SAS Performed By: #### P ROBF, BFPR, PHBF, BFCT, GLUBF, LDBF #### [address] [address] Total Protein 6.2 G/dL Normal 5.7-8.2 [facility] Comment on above: Order Comment: vrb- called critical CO2 to KHURRAM Man 04/17/2025 06:09:20 EDT SAS Performed By: #### P ROBF, BFPR, PHBF, BFCT, GLUBF, LDBF #### [address] [address] Urea nitrogen [Mass/Vol] 41.0 mg/dL High 8.0-22.0 [facility] Comment on above: Order Comment: vrb- called critical CO2 to RN Mando Man 04/17/2025 06:09:20 EDT SAS Performed By: #### P ROBF, BFPR, PHBF, BFCT, GLUBF, LDBF #### [address] [address] CO2 [Moles/Vol] mmol/L Critically abnormal 22-32 [facility] Comment on above: Order Comment: vrb- called critical CO2 to RN Mando Man 04/17/2025 06:09:20 EDT SAS Performed By: #### P ROBF, BFPR, PHBF, BFCT, GLUBF, LDBF #### [address] [address] Electrolyte Balance See Comment Normal 4.0-15.0 [facility] Comment on above: Order Comment: vrb- called critical CO2 to RN Mando Man 04/17/2025 06:09:20 EDT SAS Result Comment: Unab le to calculate this test result accurately. Results used to calculate this test are outside the reportable range. Performed By: #### P ROBF, BFPR, PHBF, BFCT, GLUBF, LDBF #### [place] [address] FT4on 04-17-2025 Free T4 [Mass/Vol] 0.88 ng/dL Low 0.89-1.76 [facility] Comment on above: Order Comment: Order ed by Discern Result Comment: No te - New Reference Range in effect 20 Performed By: #### P ROBF, BFPR, PHBF, BFCT, GLUBF, LDBF #### [place] [address] LABORATORYOrdered By: SYSTEM SYSTEM on 04-17-2025 aPTT [...] mg/dL High 0.60 - 1.40 mg/dL ADM Comment on above: Interpretive Data: T esting performed on Brightkit analyzer using enzymatic creatinine methodology. Eosinophils (Bld) [...] Glucose Testing Reason Routine (04/17/25 11:08 AM) [facility] Work Phone: Glucose [Mass/Vol] 276 mg/dL High 82 - 115 mg/dL [facility] Work Phone: Blood Glucose Testing Reason Routine (04/17/25 7:57 AM) [facility] Work Phone: Glucose [Mass/Vol] 171 mg/dL High 82 - 115 mg/dL [facility] Work Phone: LABORATORYOrdered By: Lisa Mandel on [...] Magnesium [Mass/Vol] 1.8 mg/dL Normal 1.6-2.4 [facility] Comment on above: Performed By: #### P ROBF, BFPR, PHBF, BFCT, GLUBF, LDBF #### [place] [address] Non-Animal Physiology Teacher Cytology Reporton Non-Animal Physiology Teacher Cytology Report . Pathology Reports Accession: Collected Date/Time: Received Date/Time: Pathologist: [id number] 04/15/2025 10:30 EDT 04/16/2025 08:56 EDT MÓNICA VIEIRA MD Non-Animal Physiology Teacher Cytology Report CLINICAL INFORMATION: Pleural effusion DIAGNOSTIC CATEGORY: NEGATIVE FOR MALIGNANCY. SPECIMEN: Right pleural fluid GROSS DESCRIPTION: # of Blocks: 1 # of Monolayers: 1 Volume (ml) 950 Color: fresh cloudy red/orange fluid Verified by Pathology Report verified by [facility] Screened by: ANMOL DW Electronically signed by MÓNICA VIEIRA Sign-Out Date: 04/17/2025 14:51 Performing Lab: [address] Pathology Dept Disclaimer If ancillary studies were utilized, the following Laboratory Developed Test (LDT) disclaimer will apply: Under CLIA requirements, [facility] is qualified to perform high complexity testing. For all ancillary stains, positive and negative controls stain appropriately. Performance characteristics of immunohistochemical and chromogenic in-situ hybridization tests have been determined by [facility]. These tests are used for clinical purposes, They should not be regarded as investigational or for research. Normal [facility] TSHRon 04-17-2025 TSH 4.806 mIU/mL High 0.550-4.78 0 [facility] Comment on above: Performed By: #### P ROBF, BFPR, PHBF, BFCT, GLUBF, LDBF #### [place] [id number] XR CHEST 1 VIEWon 04-17-2025 XR CHEST [...] 04/17/2025 8:12:37 AM Ordering Provider: GLORIA Francois [facility] .Auto Diffon 04-16-2025 Basophil, Absolute 0.0 10 3/mcL Normal 0.0-0.3 [facility] Comment on above: Performed By: #### P ROBF, BFPR, PHBF, BFCT, GLUBF, LDBF #### [address] [address] Basophils/100 WBC (Bld) 0.1 % Normal 0.0-2.5 [facility] Comment on above: Performed By: #### P ROBF, BFPR, PHBF, BFCT, GLUBF, LDBF #### [address] [address] Eosinophil, Absolute 0.5 10 3/mcL Normal 0.0-0.7 [facility] Comment on above: Performed By: #### P ROBF, BFPR, PHBF, BFCT, GLUBF, LDBF #### [address] [address] Eosinophils/100 WBC (Bld) 5.3 % Normal 0.0-6.0 [facility] Comment on above: Performed By: #### P ROBF, BFPR, PHBF, BFCT, GLUBF, LDBF #### [address] [address] Lymphocyte, Absolute 0.4 10 3/mcL Low 0.9-4.3 [facility] Comment on above: Performed By: #### P ROBF, BFPR, PHBF, BFCT, GLUBF, LDBF #### [address] [address] Lymphocytes/100 WBC (Bld) 4.8 % Low 20.0-40.0 [facility] Comment on above: Performed By: #### P ROBF, BFPR, PHBF, BFCT, GLUBF, LDBF #### [facility] [address] [place] [address] Monocyte, Absolute 0.7 10 3/mcL Normal 0.1-1.4 [facility] Comment on above: Performed By: #### P ROBF, BFPR, PHBF, BFCT, GLUBF, LDBF #### [facility] [address] [place] [address] Monocytes/100 WBC (Bld) 8.3 % Normal 2.0-13.0 [facility] Comment on above: Performed By: #### P ROBF, BFPR, PHBF, BFCT, GLUBF, LDBF #### [address] [address] Neutrophils/100 WBC (Bld) 81.5 % High 50.0-75.0 [facility] Comment on above: Performed By: #### P ROBF, BFPR, PHBF, BFCT, GLUBF, LDBF #### [facility] [address] [place] [address] .GFRon 04-16-2025 Estimated Glomerular Filtration Rate 48 ml/min/1.73sqm Normal [facility] Comment on above: Result [...] ROBF, BFPR, PHBF, BFCT, GLUBF, LDBF #### [place] [address] .NEUABSon 04-16-2025 Neutrophil, Absolute 7.3 10 3/mcL Normal 2.3-8.1 [facility] Comment on above: Performed By: #### P ROBF, BFPR, PHBF, BFCT, GLUBF, LDBF #### [place] [address] APTTon 04-16-2025 aPTT Coag (Bld) [Time] 63.1 s High 25.0-35.0 [facility] Comment on above: Result Comment: For Heparin anticoagulation therapy, the recommended therapeutic range is: 54-77 seconds (APTT Correlation with Anti-Xa therapeutic range of 0.3-0.7 units/ml). PLEASE REFERENCE THE PHARMACY PROTOCOL FOR DOSING. Performed By: #### P ROBF, BFPR, PHBF, BFCT, GLUBF, LDBF #### [place] [address] aPTT Coag (Bld) [Time] 55.6 s High 25.0-35.0 [facility] Comment on above: Result Comment: For Heparin anticoagulation therapy, the recommended therapeutic range is: 54-77 seconds (APTT Correlation with Anti-Xa therapeutic range of 0.3-0.7 units/ml). PLEASE REFERENCE THE PHARMACY PROTOCOL FOR DOSING. Performed By: #### A PTT #### [place] [address] CBCon 04-16-2025 Erythrocyte distribution width (RBC) [Ratio] 18.8 % High 11.5-15.5 [facility] Comment on above: Performed By: #### P ROBF, BFPR, PHBF, BFCT, GLUBF, LDBF #### [place] [address] Hematocrit (Bld) [Volume fraction] 27.9 % Low 40.0-52.0 [facility] Comment on above: Performed By: #### P ROBF, BFPR, PHBF, BFCT, GLUBF, LDBF #### [place] [address] Hgb 9.1 G/dL Low 13.0-17.5 [facility] Comment on above: Performed By: #### P ROBF, BFPR, PHBF, BFCT, GLUBF, LDBF #### [place] [address] MCH (RBC) [Entitic mass] 27.8 pg Normal 27.0-33.0 [facility] Comment on above: Performed By: #### P ROBF, BFPR, PHBF, BFCT, GLUBF, LDBF #### [place] [address] MCHC 32.8 G/dL Normal 32.0-36.0 [facility] Comment on above: Performed By: #### P ROBF, BFPR, PHBF, BFCT, GLUBF, LDBF #### [place] [address] MCV (RBC) [Entitic vol] 84.7 fL Normal 81.0-100.0 [facility] Comment on above: Performed By: #### P ROBF, BFPR, PHBF, BFCT, GLUBF, LDBF #### [place] [address] Platelet 158 10 3/mcL Normal 150-450 [facility] Comment on above: Performed By: #### P ROBF, BFPR, PHBF, BFCT, GLUBF, LDBF #### [place] [address] Platelet mean volume (Bld) [Entitic vol] 8.7 fL Normal 6.4-10.5 [facility] Comment on above: Performed By: #### P ROBF, BFPR, PHBF, BFCT, GLUBF, LDBF #### [place] [address] RBC 3.29 10 6/mcL Low 4.50-6.00 [facility] Comment on above: Performed By: #### P ROBF, BFPR, PHBF, BFCT, GLUBF, LDBF #### [place] [id number] WBC 9.0 10 3/mcL Normal 4.5-10.8 [facility] Comment on above: Performed By: #### P ROBF, BFPR, PHBF, BFCT, GLUBF, LDBF #### [address] [address] CMPon 04-16-2025 Albumin Level 2.6 G/dL Low 3.2-4.8 [facility] Comment on above: Performed By: #### P ROBF, BFPR, PHBF, BFCT, GLUBF, LDBF #### [place] [address] Albumin/Globulin [Mass ratio] 0.8 {ratio} Low 0.9-1.6 [facility] Comment on above: Performed By: #### P ROBF, BFPR, PHBF, BFCT, GLUBF, LDBF #### [address] [address] ALP [Catalytic activity/Vol] 59 U/L Normal 38-126 [facility] Comment on above: Performed By: #### P ROBF, BFPR, PHBF, BFCT, GLUBF, LDBF #### [address] [address] ALT [Catalytic activity/Vol] 23 U/L Normal 12-55 [facility] Comment on above: Performed By: #### P ROBF, BFPR, PHBF, BFCT, GLUBF, LDBF #### [address] [address] AST [Catalytic activity/Vol] 17 U/L Normal 8-34 [facility] Comment on above: Performed By: #### P ROBF, BFPR, PHBF, BFCT, GLUBF, LDBF #### [place] [id number] Bili Total 0.50 mg/dL Normal 0.20-1.20 [facility] Comment on above: Result Comment: Use of this assay is not recommended for patients undergoing treatment with eltrombopag due to the potential for falsely elevated results. Performed By: #### P ROBF, BFPR, PHBF, BFCT, GLUBF, LDBF #### [address] [address] BUN/Creatinine Ratio 22.6 ratio High 10.0-22.0 [facility] Comment on above: Performed By: #### P ROBF, BFPR, PHBF, BFCT, GLUBF, LDBF #### [address] [address] Calcium [Mass/Vol] 9.2 mg/dL Normal 8.7-10.4 [facility] Comment on above: Performed By: #### P ROBF, BFPR, PHBF, BFCT, GLUBF, LDBF #### [address] [address] Chloride [Moles/Vol] 91 mmol/L Low 98-110 [facility] Comment on above: Performed By: #### P ROBF, BFPR, PHBF, BFCT, GLUBF, LDBF #### [address] [address] CO2 [Moles/Vol] 38 mmol/L High 22-32 [facility] Comment on above: Performed By: #### P ROBF, BFPR, PHBF, BFCT, GLUBF, LDBF #### [address] [address] Creatinine [Mass/Vol] 1.46 mg/dL High 0.60-1.40 [facility] Comment on above: Result Comment: Test ing performed on Brightkit analyzer using enzymatic creatinine methodology. Performed By: #### P ROBF, BFPR, PHBF, BFCT, GLUBF, LDBF #### [address] [address] Electrolyte Balance 9.0 mEq/L Normal 4.0-15.0 [facility] Comment on above: Performed By: #### P ROBF, BFPR, PHBF, BFCT, GLUBF, LDBF #### [address] [address] Globulin 3.2 G/dL Normal 2.5-4.2 [facility] Comment on above: Performed By: #### P ROBF, BFPR, PHBF, BFCT, GLUBF, LDBF #### [address] [address] Glucose [Mass/Vol] 144 mg/dL High 82-115 [facility] Comment on above: Performed By: #### P ROBF, BFPR, PHBF, BFCT, GLUBF, LDBF #### [address] [address] Potassium [Moles/Vol] 3.7 mmol/L Normal 3.5-5.0 [facility] Comment on above: Performed By: #### P ROBF, BFPR, PHBF, BFCT, GLUBF, LDBF #### [place] [id number] Sodium [Moles/Vol] 138 mmol/L Normal 136-145 [facility] Comment on above: Performed By: #### P ROBF, BFPR, PHBF, BFCT, GLUBF, LDBF #### [place] [address] Total Protein 5.8 G/dL Normal 5.7-8.2 [facility] Comment on above: Performed By: #### P ROBF, BFPR, PHBF, BFCT, GLUBF, LDBF #### [place] [address] Urea nitrogen [Mass/Vol] 33.0 mg/dL High 8.0-22.0 [facility] Comment on above: Performed By: #### P ROBF, BFPR, PHBF, BFCT, GLUBF, LDBF #### [address] [address] LABORATORYOrdered By: Mónica Brown on 04-16-2025 Blood Glucose Testing Reason Routine (04/16/25 9:15 PM) [facility] Work Phone: Glucose [Mass/Vol] 207 mg/dL High 82 - 115 mg/dL [facility] Work Phone: LABORATORYOrdered By: SYSTEM SYSTEM on [...] above: Interpretive Data: T esting performed on Brightkit analyzer using enzymatic creatinine methodology. Electrolyte Balance [...] 0 - 33.0 pg Workflow SS MCHC 32.8 G/dL Normal 32.0 - 36.0 G/dL Workflow SS MCV (RBC) [Entitic vol] 84.7 fL Normal 81.0 - 100.0 fL Workflow SS Monocytes (Bld) [#/Vol] 0.7 103/mcL Normal 0.1 - 1.4 10^3/mcL Workflow SS Monocytes/100 WBC (Bld) 8.3 % Normal 2.0 - 13.0 % Workflow SS Neutrophils (Bld) [#/Vol] 7.3 103/mcL Normal 2.3 - 8.1 10^3/mcL Workflow SS Neutrophils/100 WBC (Bld) 81.5 % High 50.0 - 75.0 % AH Workflow SS Platelet mean volume (Bld) [Entitic vol] 8.7 fL Normal 6.4 - 10.5 fL Workflow SS Platelets (Bld) [#/Vol] 158 103/mcL Normal 150 - 450 10^3/mcL AH Workflow SS Potassium [Moles/Vol] 3.7 mmol/L Normal 3.5 - 5.0 mEq/L ADM SS Protein [Mass/Vol] 5.8 G/dL Normal [...] Magnesium [Mass/Vol] 1.8 mg/dL Normal 1.6-2.4 [facility] Comment on above: Performed By: #### P ROBF, BFPR, PHBF, BFCT, GLUBF, LDBF #### [address] [address] .Auto Diffon 04-15-2025 Basophil, Absolute 0.0 10 3/mcL Normal 0.0-0.3 [facility] Comment on above: Performed By: #### P ROBF, BFPR, PHBF, BFCT, GLUBF, LDBF #### [address] [address] Basophils/100 WBC (Bld) 0.1 % Normal 0.0-2.5 [facility] Comment on above: Performed By: #### P ROBF, BFPR, PHBF, BFCT, GLUBF, LDBF #### [address] [address] Eosinophil, Absolute 0.4 10 3/mcL Normal 0.0-0.7 [facility] Comment on above: Performed By: #### P ROBF, BFPR, PHBF, BFCT, GLUBF, LDBF #### [address] [address] Eosinophils/100 WBC (Bld) 4.1 % Normal 0.0-6.0 [facility] Comment on above: Performed By: #### P ROBF, BFPR, PHBF, BFCT, GLUBF, LDBF #### [address] [address] Lymphocyte, Absolute 0.4 10 3/mcL Low 0.9-4.3 [facility] Comment on above: Performed By: #### P ROBF, BFPR, PHBF, BFCT, GLUBF, LDBF #### [address] [address] Lymphocytes/100 WBC (Bld) 4.5 % Low 20.0-40.0 [facility] Comment on above: Performed By: #### P ROBF, BFPR, PHBF, BFCT, GLUBF, LDBF #### [address] [address] Monocyte, Absolute 0.8 10 3/mcL Normal 0.1-1.4 [facility] Comment on above: Performed By: #### P ROBF, BFPR, PHBF, BFCT, GLUBF, LDBF #### [address] [address] Monocytes/100 WBC (Bld) 8.5 % Normal 2.0-13.0 [facility] Comment on above: Performed By: #### P ROBF, BFPR, PHBF, BFCT, GLUBF, LDBF #### [address] [address] Neutrophils/100 WBC (Bld) 82.8 % High 50.0-75.0 [facility] Comment on above: Performed By: #### P ROBF, BFPR, PHBF, BFCT, GLUBF, LDBF #### [place] [address] .GFRon 04-15-2025 Estimated Glomerular Filtration Rate 50 ml/min/1.73sqm Normal [facility] Comment on above: Result [...] ROBF, BFPR, PHBF, BFCT, GLUBF, LDBF #### [place] [address] .NEUABSon 04-15-2025 Neutrophil, Absolute 7.8 10 3/mcL Normal 2.3-8.1 [facility] Comment on above: Performed By: #### P ROBF, BFPR, PHBF, BFCT, GLUBF, LDBF #### [place] [address] APTTon 04-15-2025 aPTT Coag (Bld) [Time] 55.0 s High 25.0-35.0 [facility] Comment on above: Result Comment: For Heparin anticoagulation therapy, the recommended therapeutic range is: 54-77 seconds (APTT Correlation with Anti-Xa therapeutic range of 0.3-0.7 units/ml). PLEASE REFERENCE THE PHARMACY PROTOCOL FOR DOSING. Performed By: #### P ROBF, BFPR, PHBF, BFCT, GLUBF, LDBF #### [place] [address] BFCTon 04-15-2025 Cells Counted BF 100 Normal [facility] Comment on above: Performed By: #### P ROBF, BFPR, PHBF, BFCT, GLUBF, LDBF #### [address] [address] Lymphocytes/100 WBC (Bld) 47 % Normal [facility] Comment on above: Performed By: #### P ROBF, BFPR, PHBF, BFCT, GLUBF, LDBF #### [address] [address] Mesothelial Cell % BF 4 % Normal [facility] Comment on above: Performed By: #### P ROBF, BFPR, PHBF, BFCT, GLUBF, LDBF #### [address] [address] Mononuclear cell % BF 1 % Normal [facility] Comment on above: Performed By: #### P ROBF, BFPR, PHBF, BFCT, GLUBF, LDBF #### [address] [address] Neutrophils/100 WBC (Bld) 48 % Normal [facility] Comment on above: Performed By: #### P ROBF, BFPR, PHBF, BFCT, GLUBF, LDBF #### [address] [address] Total Nucleated Cells 172 /mm3 Normal [facility] Comment on above: Performed By: #### P ROBF, BFPR, PHBF, BFCT, GLUBF, LDBF #### [address] [address] Body Fluid Source Pleural fluid Normal [facility] Comment on above: Result Comment: Refe rence ranges have not been established for this body fluid. The test results must be integrated into the clinical context for interpretation. Performed By: #### P ROBF, BFPR, PHBF, BFCT, GLUBF, LDBF #### [address] [address] BMPon 04-15-2025 BUN/Creatinine Ratio 30.8 ratio High 10.0-22.0 [facility] Comment on above: Performed By: #### P ROBF, BFPR, PHBF, BFCT, GLUBF, LDBF #### [address] [address] Calcium [Mass/Vol] 8.7 mg/dL Normal 8.7-10.4 [facility] Comment on above: Performed By: #### P ROBF, BFPR, PHBF, BFCT, GLUBF, LDBF #### [address] [address] Chloride [Moles/Vol] 94 mmol/L Low 98-110 [facility] Comment on above: Performed By: #### P ROBF, BFPR, PHBF, BFCT, GLUBF, LDBF #### [address] [address] CO2 [Moles/Vol] 39 mmol/L High 22-32 [facility] Comment on above: Performed By: #### P ROBF, BFPR, PHBF, BFCT, GLUBF, LDBF #### [address] [address] Creatinine [Mass/Vol] 1.43 mg/dL High 0.60-1.40 [facility] Comment on above: Result Comment: Test ing performed on Brightkit analyzer using enzymatic creatinine methodology. Performed By: #### P ROBF, BFPR, PHBF, BFCT, GLUBF, LDBF #### [address] [address] Electrolyte Balance 7.0 mEq/L Normal 4.0-15.0 [facility] Comment on above: Performed By: #### P ROBF, BFPR, PHBF, BFCT, GLUBF, LDBF #### [address] [address] Glucose [Mass/Vol] 134 mg/dL High 82-115 [facility] Comment on above: Performed By: #### P ROBF, BFPR, PHBF, BFCT, GLUBF, LDBF #### [address] [address] Potassium [Moles/Vol] 3.8 mmol/L Normal 3.5-5.0 [facility] Comment on above: Performed By: #### P ROBF, BFPR, PHBF, BFCT, GLUBF, LDBF #### [place] [address] Sodium [Moles/Vol] 140 mmol/L Normal 136-145 [facility] Comment on above: Performed By: #### P ROBF, BFPR, PHBF, BFCT, GLUBF, LDBF #### [place] [id number] Urea nitrogen [Mass/Vol] 44.0 mg/dL High 8.0-22.0 [facility] Comment on above: Performed By: #### P ROBF, BFPR, PHBF, BFCT, GLUBF, LDBF #### [place] [id number] CBCon 04-15-2025 Erythrocyte distribution width (RBC) [Ratio] 17.9 % High 11.5-15.5 [facility] Comment on above: Performed By: #### P ROBF, BFPR, PHBF, BFCT, GLUBF, LDBF #### [place] [address] Hematocrit (Bld) [Volume fraction] 26.7 % Low 40.0-52.0 [facility] Comment on above: Performed By: #### P ROBF, BFPR, PHBF, BFCT, GLUBF, LDBF #### [place] [address] Hgb 8.6 G/dL Low 13.0-17.5 [facility] Comment on above: Performed By: #### P ROBF, BFPR, PHBF, BFCT, GLUBF, LDBF #### [place] [id number] MCH (RBC) [Entitic mass] 26.9 pg Low 27.0-33.0 [facility] Comment on above: Performed By: #### P ROBF, BFPR, PHBF, BFCT, GLUBF, LDBF #### [place] [address] MCHC 32.1 G/dL Normal 32.0-36.0 [facility] Comment on above: Performed By: #### P ROBF, BFPR, PHBF, BFCT, GLUBF, LDBF #### [place] [address] MCV (RBC) [Entitic vol] 83.9 fL Normal 81.0-100.0 [facility] Comment on above: Performed By: #### P ROBF, BFPR, PHBF, BFCT, GLUBF, LDBF #### [place] [address] Platelet 169 10 3/mcL Normal 150-450 [facility] Comment on above: Performed By: #### P ROBF, BFPR, PHBF, BFCT, GLUBF, LDBF #### [place] [address] Platelet mean volume (Bld) [Entitic vol] 8.2 fL Normal 6.4-10.5 [facility] Comment on above: Performed By: #### P ROBF, BFPR, PHBF, BFCT, GLUBF, LDBF #### [place] [address] RBC 3.18 10 6/mcL Low 4.50-6.00 [facility] Comment on above: Performed By: #### P ROBF, BFPR, PHBF, BFCT, GLUBF, LDBF #### [place] [address] WBC 9.4 10 3/mcL Normal 4.5-10.8 [facility] Comment on above: Performed By: #### P ROBF, BFPR, PHBF, BFCT, GLUBF, LDBF #### [place] [address] GLUBFon 04-15-2025 Glucose Body Fluid Spec Type Pleural fluid Normal [facility] Comment on above: Result Comment: The reference interval(s) and other method performance specifications have not been established for this body fluid. The test result must be integrated into the clinical content for interpretation. Performed By: #### P ROBF, BFPR, PHBF, BFCT, GLUBF, LDBF #### [place] [address] Glucose BF 191.0 mg/dL Normal [facility] Comment on above: Performed By: #### P ROBF, BFPR, PHBF, BFCT, GLUBF, LDBF #### [place] [id number] HFPon 04-15-2025 Bili Indirect 0.2 mg/dL Normal 0.1-10.0 [facility] Comment on above: Performed By: #### T MADHAVI #### [place] [address] Albumin Level 2.9 G/dL Low 3.2-4.8 [facility] Comment on above: Performed By: #### T MADHAVI #### [place] [id number] Albumin/Globulin [Mass ratio] 0.8 {ratio} Low 0.9-1.6 [facility] Comment on above: Performed By: #### T MADHAVI #### [place] [address] ALP [Catalytic activity/Vol] 65 U/L Normal 38-126 [facility] Comment on above: Performed By: #### T MADHAVI #### [place] [address] ALT [Catalytic activity/Vol] 29 U/L Normal 12-55 [facility] Comment on above: Performed By: #### T MADHAVI #### [place] [id number] AST [Catalytic activity/Vol] 23 U/L Normal 8-34 [facility] Comment on above: Performed By: #### T MADHAVI #### [place] [address] Bili Direct 0.2 mg/dL Normal 0.0-0.4 [facility] Comment on above: Result Comment: Use of this assay is not recommended for patients undergoing treatment with eltrombopag due to the potential for falsely elevated results. Performed By: #### T MADHAVI #### [place] [address] Bili Total 0.40 mg/dL Normal 0.20-1.20 [facility] Comment on above: Result Comment: Use of this assay is not recommended for patients undergoing treatment with eltrombopag due to the potential for falsely elevated results. Performed By: #### T MADHAVI #### [place] [id number] Globulin 3.6 G/dL Normal 2.5-4.2 [facility] Comment on above: Performed By: #### T MADHAVI #### [place] [address] Total Protein 6.5 G/dL Normal 5.7-8.2 [facility] Comment on above: Performed By: #### T MADHAVI #### [place] [address] LABORATORYOrdered By: SYSTEM SYSTEM on 04-15-2025 Albumin [...] above: Interpretive Data: T esting performed on Brightkit analyzer using enzymatic creatinine methodology. Electrolyte Balance [...] pg Low 27. 0 - 33.0 pg Workflow SS MCHC 32.1 G/dL Normal 32.0 [...] Pleural fluid 19 (04/15/25 10:30 AM) Normal Manual Heme SS Comment on above: Interpretive [...] Body Fluid Spec Type Pleural fluid Normal [facility] Comment on above: Result Comment: The reference interval(s) and other method performance specifications have not been established for this body fluid. The test result must be integrated into the clinical content for interpretation. . Performed By: #### P ROBF, BFPR, PHBF, BFCT, GLUBF, LDBF #### [address] [address] LDH BF 137.0 U/L Normal [facility] Comment on above: Performed By: #### P ROBF, BFPR, PHBF, BFCT, GLUBF, LDBF #### [address] [address] LDHon 04-15-2025 LDH 216 U/L Normal 120-246 [facility] Comment on above: Performed By: #### T ROPHS #### [address] [address] MGon 04-15-2025 Magnesium [Mass/Vol] 1.8 mg/dL Normal 1.6-2.4 [facility] Comment on above: Performed By: #### P ROBF, BFPR, PHBF, BFCT, GLUBF, LDBF #### [address] [address] No Panel Informationon 04-15 AFS Acid Fast Smear from Concentrated Specimen: Negative [facility] Work Phone: Culture Body Fluid Culture has been rec eived in lab and is no growth to date. Routine cultures are held for 5 days. [facility] Work Phone: FUNSM No fungal elements observed by calcofluor white stain. [facility] Work Phone: GS Sedimented 1+ Polymorphonuclear cells 1+ Mononuclear cells No organisms seen. [facility] Work Phone: Non-Animal Physiology Teacher Cytology Reporton Non-Animal Physiology Teacher Cytology Report Event Display: N G Specimen Right pleural fluid MÓNICA VIEIRA MD:VERIFY; Authored Date: [facility] Work Phone: Non-Animal Physiology Teacher Cytology Report Event Display: N G Signature Pathology Report verified by [facility] Screened by: ANMOL GARCIA Electronically signed by MÓNICA VIEIRA Sign-Out Date: 04/17/2025 14:51 Performing Lab: [facility], [address] [place] [address] Pathology Dept MÓNICA VIEIRA MD:VERIFY; Authored Date: [facility] Work Phone: Non-Animal Physiology Teacher Cytology Report Event Display: N G Clin Info Pleural effusion MÓNICA VIEIRA MD:VERIFY; Authored Date: [facility] Work Phone: Non-Animal Physiology Teacher Cytology Report Event Display: N G Diagnostic Category Interp NEGATIVE FOR MALIGNANCY. MÓNICA VIEIRA MD:VERIFY; Authored Date: [facility] Work Phone: Non-Animal Physiology Teacher Cytology Report Event Display: N G Gross # of Blocks: 1 # of Monolayers: 1 Volume (ml) 950 Color: fresh cloudy red/orange fluid MÓNICA VIEIRA MD:VERIFY; Authored Date: [facility] Work Phone: Non-Animal Physiology Teacher Cytology Report Event Display: N G Disclaimer If ancillary studies were utilized, the following Laboratory Developed Test (LDT) disclaimer will apply: Under CLIA requirements, [facility] is qualified to perform high complexity testing. For all ancillary stains, positive and negative controls stain appropriately. Performance characteristics of immunohistochemical and chromogenic in-situ hybridization tests have been determined by [facility]. These tests are used for clinical purposes, They should not be regarded as investigational or for research. MÓNICA VIEIRA MD:VERIFY; Authored Date: [id number] [facility] Work Phone: PBon 04-15-2025 Natriuretic peptide B (Bld) [Mass/Vol] 4360 pg/mL High 0-1800 [facility] Comment on above: Performed By: #### P ROBF, BFPR, PHBF, BFCT, GLUBF, LDBF #### [place] [address] PHBFon 04-15-2025 pH BF 7.4 Normal [facility] Comment on above: Result Comment: domingo becerril Performed By: #### P ROBF, BFPR, PHBF, BFCT, GLUBF, LDBF #### [place] [address] pH BF Spec Type Pleural fluid Normal [facility] Comment on above: Result Comment: The reference interval(s) and other method performance specifications have not been established for this body fluid. The test result must be integrated into the clinical content for interpretation. Performed By: #### P ROBF, BFPR, PHBF, BFCT, GLUBF, LDBF #### [place] [address] PROBFon 04-15-2025 Protein BF Type Pleural fluid Normal [facility] Comment on above: Result Comment: The reference interval(s) and other method performance specifications have not been established for this body fluid. The test result must be integrated into the clinical content for interpretation. Performed By: #### P ROBF, BFPR, PHBF, BFCT, GLUBF, LDBF #### [place] [address] Protein BF <2.0 Normal [facility] Comment on above: Performed By: #### P ROBF, BFPR, PHBF, BFCT, GLUBF, LDBF #### [place] [id number] [address] [place] [address] XR CHEST 1 VIEWon 04-15-2025 XR CHEST [...] 04/15/2025 11:43:46 AM Ordering Provider: OLAMIDE GONZALEZ [facility] XR CHEST 1 VIEW ORIGINAL EXAMINATION: ONE [...] 04/15/2025 7:22:03 AM Ordering Provider: GLORIA DAVIS [facility] .Auto Diffon 04-14-2025 Basophil, Absolute 0.0 10 3/mcL Normal 0.0-0.3 [facility] Comment on above: Performed By: #### P ROBF, BFPR, PHBF, BFCT, GLUBF, LDBF #### [address] [address] Basophils/100 WBC (Bld) 0.2 % Normal 0.0-2.5 [facility] Comment on above: Performed By: #### P ROBF, BFPR, PHBF, BFCT, GLUBF, LDBF #### [address] [address] Eosinophil, Absolute 0.2 10 3/mcL Normal 0.0-0.7 [facility] Comment on above: Performed By: #### P ROBF, BFPR, PHBF, BFCT, GLUBF, LDBF #### [address] [address] Eosinophils/100 WBC (Bld) 1.9 % Normal 0.0-6.0 [facility] Comment on above: Performed By: #### P ROBF, BFPR, PHBF, BFCT, GLUBF, LDBF #### [address] [address] Lymphocyte, Absolute 0.4 10 3/mcL Low 0.9-4.3 [facility] Comment on above: Performed By: #### P ROBF, BFPR, PHBF, BFCT, GLUBF, LDBF #### [address] [address] Lymphocytes/100 WBC (Bld) 4.0 % Low 20.0-40.0 [facility] Comment on above: Performed By: #### P ROBF, BFPR, PHBF, BFCT, GLUBF, LDBF #### [address] [address] Monocyte, Absolute 0.9 10 3/mcL Normal 0.1-1.4 [facility] Comment on above: Performed By: #### P ROBF, BFPR, PHBF, BFCT, GLUBF, LDBF #### [address] [address] Monocytes/100 WBC (Bld) 8.3 % Normal 2.0-13.0 [facility] Comment on above: Performed By: #### P ROBF, BFPR, PHBF, BFCT, GLUBF, LDBF #### [address] [address] Neutrophils/100 WBC (Bld) 85.6 % High 50.0-75.0 [facility] Comment on above: Performed By: #### P ROBF, BFPR, PHBF, BFCT, GLUBF, LDBF #### [place] [address] .GFRon 04-14-2025 Estimated Glomerular Filtration Rate 49 ml/min/1.73sqm Normal [facility] Comment on above: Result [...] results. Performed By: #### T ROPHS #### [place] [address] .NEUABSon 04-14-2025 Neutrophil, Absolute 9.2 10 3/mcL High 2.3-8.1 [facility] Comment on above: Performed By: #### P ROBF, BFPR, PHBF, BFCT, GLUBF, LDBF #### [place] [address] APTTon 04-14-2025 aPTT Coag (Bld) [Time] 28.2 s Normal 25.0-35.0 [facility] Comment on above: Result Comment: For Heparin anticoagulation therapy, the recommended therapeutic range is: 54-77 seconds (APTT Correlation with Anti-Xa therapeutic range of 0.3-0.7 units/ml). PLEASE REFERENCE THE PHARMACY PROTOCOL FOR DOSING. Performed By: #### A PTT, PRO #### [place] [address] BMPon 04-14-2025 BUN/Creatinine Ratio 32.4 ratio High 10.0-22.0 [facility] Comment on above: Performed By: #### T MADHAVI #### [address] [address] Calcium [Mass/Vol] 8.6 mg/dL Low 8.7-10.4 [facility] Comment on above: Performed By: #### T MADHAVI #### [address] [address] Chloride [Moles/Vol] 98 mmol/L Normal 98-110 [facility] Comment on above: Performed By: #### T MADHAVI #### [address] [address] CO2 [Moles/Vol] 40 mmol/L Critically abnormal 22-32 [facility] Comment on above: Performed By: #### T MADHAVI #### [address] [address] Creatinine [Mass/Vol] 1.45 mg/dL High 0.60-1.40 [facility] Comment on above: Result Comment: Test ing performed on Brightkit analyzer using enzymatic creatinine methodology. Performed By: #### T MADHAVI #### [address] [address] Electrolyte Balance 5.0 mEq/L Normal 4.0-15.0 [facility] Comment on above: Performed By: #### T MADHAVI #### [address] [address] Glucose [Mass/Vol] 88 mg/dL Normal 82-115 [facility] Comment on above: Performed By: #### T MADHAVI #### [address] [address] Potassium [Moles/Vol] 4.3 mmol/L Normal 3.5-5.0 [facility] Comment on above: Performed By: #### T MADHAVI #### [address] [address] Sodium [Moles/Vol] 143 mmol/L Normal 136-145 [facility] Comment on above: Performed By: #### T MADHAVI #### [address] [address] Urea nitrogen [Mass/Vol] 47.0 mg/dL High 8.0-22.0 [facility] Comment on above: Performed By: #### T ROPHS #### [place] [address] CBCon 04-14-2025 Erythrocyte distribution width (RBC) [Ratio] 18.4 % High 11.5-15.5 [facility] Comment on above: Performed By: #### P ROBF, BFPR, PHBF, BFCT, GLUBF, LDBF #### [place] [address] Hematocrit (Bld) [Volume fraction] 29.0 % Low 40.0-52.0 [facility] Comment on above: Performed By: #### P ROBF, BFPR, PHBF, BFCT, GLUBF, LDBF #### [place] [address] Hgb 9.0 G/dL Low 13.0-17.5 [facility] Comment on above: Performed By: #### P ROBF, BFPR, PHBF, BFCT, GLUBF, LDBF #### [place] [address] MCH (RBC) [Entitic mass] 26.3 pg Low 27.0-33.0 [facility] Comment on above: Performed By: #### P ROBF, BFPR, PHBF, BFCT, GLUBF, LDBF #### [place] [address] MCHC 31.0 G/dL Low 32.0-36.0 [facility] Comment on above: Performed By: #### P ROBF, BFPR, PHBF, BFCT, GLUBF, LDBF #### [place] [address] MCV (RBC) [Entitic vol] 84.9 fL Normal 81.0-100.0 [facility] Comment on above: Performed By: #### P ROBF, BFPR, PHBF, BFCT, GLUBF, LDBF #### [place] [address] Platelet 165 10 3/mcL Normal 150-450 [facility] Comment on above: Performed By: #### P ROBF, BFPR, PHBF, BFCT, GLUBF, LDBF #### [facility] [address] [place] [address] Platelet mean volume (Bld) [Entitic vol] 7.8 fL Normal 6.4-10.5 [facility] Comment on above: Performed By: #### P ROBF, BFPR, PHBF, BFCT, GLUBF, LDBF #### [place] [id number] [place] [address] RBC 3.41 10 6/mcL Low 4.50-6.00 [facility] Comment on above: Performed By: #### P ROBF, BFPR, PHBF, BFCT, GLUBF, LDBF #### [facility] [address] [place] [address] WBC 10.8 10 3/mcL Normal 4.5-10.8 [facility] Comment on above: Performed By: #### P ROBF, BFPR, PHBF, BFCT, GLUBF, LDBF #### [address] [address] LABORATORYOrdered By: SYSTEM SYSTEM on 04-14-2025 PT Coag (PPP) [Time] 13.9 s Normal 9.0 - 1 4.4 seconds YI ETIENNE Comment on above: Interpretive Data: E ffective 03/03/08, Protime results may be affected by some antibiotics (i.e. Ciprofloxacin, Azithromycin, Bactrim) which may potentiate the action of oral anticoagulants, with further increases in Protime/INR. PT International Ratio 1.2 ratio Invalid Interpretation Code YI Bocanegra SS Comment on above: Interpretive Data: T mike [employer] (CHEST, 1992, 102:312S-25S) [...] ng/L Male: 0-54 ng/L Testing performed on [employer] analyzer using direct chemiluminescent technology. No Panel Informationon 04-14 Legionella Urine Ag Presumptive negative for L. pneumophila serogroup 1 antigen in urine, suggesting no recent or current infection. Legionnaire's disease cannot be ruled out since other serogroups and species may also cause disease. [facility] Work Phone: Streptococcus Pneumoniae Urine Antig Presumptive negative for pneumococcal pneumonia, suggesting no current or recent pneumococcal infection. Infection due to Strep pneumoniae cannot be ruled out since the antigen present in the sample may be below the detection limit of the test. [facility] Work Phone: Comment on above: This test has not be en evaluated on patients taking antibiotics for greater than 24 hours or on patients who have recently completed an antibiotic regimen. The accuracy of this test has not been proven in young children. PROon 04-14-2025 INR Coag (PPP) [Relative time] 1.2 {INR} Normal [facility] Comment on above: Result Comment: [employer] (CHEST, 1992, 102:312S-25S) recommended therapeutic range for oral anticoagulant therapy is: LOW RISK: Prophylaxis of venous thrombosis INR: 2.0-3.0 Treatment of pulmonary embolism 2.0-3.0 Prevention of systemic embolism 2.0-3.0 HIGH RISK: Mechanical prosthetic valves 2.5-3.5 Performed By: #### A PTT, PRO #### [address] [address] PT Coag (PPP) [Time] 13.9 s Normal 9.0-14.4 [facility] Comment on above: Result Comment: Effe ctive 03/03/08, Protime results may be affected by some antibiotics (i.e. Ciprofloxacin, Azithromycin, Bactrim) which may potentiate the action of oral anticoagulants, with further increases in Protime/INR. Performed By: #### A PTT, PRO #### [facility] [address] [place] [address] TROPHSon 04-14-2025 High Sensitivity Troponin I 160 ng/L High 0-54 [facility] Comment on above: Result Comment: High Sensitive Troponin I Reference Ranges: Female: 0-34 ng/L Male: 0-54 ng/L Testing performed on [employer] analyzer using direct chemiluminescent technology. Performed By: #### T PAUL #### [address] [address] XR CHEST 1 VIEWon 04-14-2025 XR CHEST [...] 04/14/2025 7:00:29 AM Ordering Provider: COLLEEN Francois [facility] .Auto Diffon 04-13-2025 Basophil, Absolute 0.0 10 3/mcL Normal 0.0-0.3 [facility] Comment on above: Performed By: #### P ROBF, BFPR, PHBF, BFCT, GLUBF, LDBF #### [address] [address] Basophils/100 WBC (Bld) 0.0 % Normal 0.0-2.5 [facility] Comment on above: Performed By: #### P ROBF, BFPR, PHBF, BFCT, GLUBF, LDBF #### [address] [address] Eosinophil, Absolute 0.0 10 3/mcL Normal 0.0-0.7 [facility] Comment on above: Performed By: #### P ROBF, BFPR, PHBF, BFCT, GLUBF, LDBF #### [address] [address] Eosinophils/100 WBC (Bld) 0.1 % Normal 0.0-6.0 [facility] Comment on above: Performed By: #### P ROBF, BFPR, PHBF, BFCT, GLUBF, LDBF #### [address] [address] Lymphocyte, Absolute 0.3 10 3/mcL Low 0.9-4.3 [facility] Comment on above: Performed By: #### P ROBF, BFPR, PHBF, BFCT, GLUBF, LDBF #### [address] [address] Lymphocytes/100 WBC (Bld) 3.0 % Low 20.0-40.0 [facility] [facility] Comment on above: Performed By: #### P ROBF, BFPR, PHBF, BFCT, GLUBF, LDBF #### [address] [address] Monocyte, Absolute 0.7 10 3/mcL Normal 0.1-1.4 [facility] Comment on above: Performed By: #### P ROBF, BFPR, PHBF, BFCT, GLUBF, LDBF #### [address] [address] Monocytes/100 WBC (Bld) 6.3 % Normal 2.0-13.0 [facility] Comment on above: Performed By: #### P ROBF, BFPR, PHBF, BFCT, GLUBF, LDBF #### [address] [address] Neutrophils/100 WBC (Bld) 90.6 % High 50.0-75.0 [facility] Comment on above: Performed By: #### P ROBF, BFPR, PHBF, BFCT, GLUBF, LDBF #### [address] [address] .GFRon 08-25-2025 Estimated Glomerular Filtration Rate 48 ml/min/1.73sqm Normal [facility] Comment on above: Result [...] ROBF, BFPR, PHBF, BFCT, GLUBF, LDBF #### [place] [address] .NEUABSon 04-13-2025 Neutrophil, Absolute 10.5 10 3/mcL High 2.3-8.1 [facility] Comment on above: Performed By: #### P ROBF, BFPR, PHBF, BFCT, GLUBF, LDBF #### [place] [address] CBCon 04-13-2025 Erythrocyte distribution width (RBC) [Ratio] 17.7 % High 11.5-15.5 [facility] Comment on above: Performed By: #### P ROBF, BFPR, PHBF, BFCT, GLUBF, LDBF #### [place] [address] Hematocrit (Bld) [Volume fraction] 29.7 % Low 40.0-52.0 [facility] Comment on above: Performed By: #### P ROBF, BFPR, PHBF, BFCT, GLUBF, LDBF #### [place] [address] Hgb 9.4 G/dL Low 13.0-17.5 [facility] Comment on above: Performed By: #### P ROBF, BFPR, PHBF, BFCT, GLUBF, LDBF #### [place] [address] MCH (RBC) [Entitic mass] 26.6 pg Low 27.0-33.0 [facility] Comment on above: Performed By: #### P ROBF, BFPR, PHBF, BFCT, GLUBF, LDBF #### [place] [address] MCHC 31.6 G/dL Low 32.0-36.0 [facility] Comment on above: Performed By: #### P ROBF, BFPR, PHBF, BFCT, GLUBF, LDBF #### [place] [address] MCV (RBC) [Entitic vol] 84.3 fL Normal 81.0-100.0 [facility] Comment on above: Performed By: #### P ROBF, BFPR, PHBF, BFCT, GLUBF, LDBF #### [place] [address] Platelet 201 10 3/mcL Normal 150-450 [facility] Comment on above: Performed By: #### P ROBF, BFPR, PHBF, BFCT, GLUBF, LDBF #### [place] [address] Platelet mean volume (Bld) [Entitic vol] 8.1 fL Normal 6.4-10.5 [facility] Comment on above: Performed By: #### P ROBF, BFPR, PHBF, BFCT, GLUBF, LDBF #### [place] [address] RBC 3.52 10 6/mcL Low 4.50-6.00 [facility] Comment on above: Performed By: #### P ROBF, BFPR, PHBF, BFCT, GLUBF, LDBF #### [place] [address] WBC 11.6 10 3/mcL High 4.5-10.8 [facility] Comment on above: Performed By: #### P ROBF, BFPR, PHBF, BFCT, GLUBF, LDBF #### [place] [id number] CMPon 04-13-2025 Albumin Level 2.9 G/dL Low 3.2-4.8 [facility] Comment on above: Performed By: #### P ROBF, BFPR, PHBF, BFCT, GLUBF, LDBF #### [place] [address] Albumin/Globulin [Mass ratio] 0.9 {ratio} Normal 0.9-1.6 [facility] Comment on above: Performed By: #### P ROBF, BFPR, PHBF, BFCT, GLUBF, LDBF #### [place] [address] ALP [Catalytic activity/Vol] 58 U/L Normal 38-126 [facility] Comment on above: Performed By: #### P ROBF, BFPR, PHBF, BFCT, GLUBF, LDBF #### [place] [id number] ALT [Catalytic activity/Vol] 32 U/L Normal 12-55 [facility] Comment on above: Performed By: #### P ROBF, BFPR, PHBF, BFCT, GLUBF, LDBF #### [place] [address] AST [Catalytic activity/Vol] 26 U/L Normal 8-34 [facility] Comment on above: Performed By: #### P ROBF, BFPR, PHBF, BFCT, GLUBF, LDBF #### [place] [address] Bili Total 0.50 mg/dL Normal 0.20-1.20 [facility] Comment on above: Result Comment: Use of this assay is not recommended for patients undergoing treatment with eltrombopag due to the potential for falsely elevated results. Performed By: #### P ROBF, BFPR, PHBF, BFCT, GLUBF, LDBF #### [place] [address] BUN/Creatinine Ratio 33.3 ratio High 10.0-22.0 [facility] Comment on above: Performed By: #### P ROBF, BFPR, PHBF, BFCT, GLUBF, LDBF #### [address] [address] Calcium [Mass/Vol] 8.8 mg/dL Normal 8.7-10.4 [facility] Comment on above: Performed By: #### P ROBF, BFPR, PHBF, BFCT, GLUBF, LDBF #### [address] [address] Chloride [Moles/Vol] 100 mmol/L Normal 98-110 [facility] Comment on above: Performed By: #### P ROBF, BFPR, PHBF, BFCT, GLUBF, LDBF #### [address] [address] CO2 [Moles/Vol] 39 mmol/L High 22-32 [facility] Comment on above: Performed By: #### P ROBF, BFPR, PHBF, BFCT, GLUBF, LDBF #### [address] [address] Creatinine [Mass/Vol] 1.47 mg/dL High 0.60-1.40 [facility] Comment on above: Result Comment: Test ing performed on [employer] analyzer using enzymatic creatinine methodology. Performed By: #### P ROBF, BFPR, PHBF, BFCT, GLUBF, LDBF #### [address] [address] Electrolyte Balance 4.0 mEq/L Normal 4.0-15.0 [facility] Comment on above: Performed By: #### P ROBF, BFPR, PHBF, BFCT, GLUBF, LDBF #### [address] [address] Globulin 3.4 G/dL Normal 2.5-4.2 [facility] Comment on above: Performed By: #### P ROBF, BFPR, PHBF, BFCT, GLUBF, LDBF #### [address] [address] Glucose [Mass/Vol] 192 mg/dL High 82-115 [facility] Comment on above: Performed By: #### P ROBF, BFPR, PHBF, BFCT, GLUBF, LDBF #### [address] [address] Potassium [Moles/Vol] 4.5 mmol/L Normal 3.5-5.0 [facility] Comment on above: Performed By: #### P ROBF, BFPR, PHBF, BFCT, GLUBF, LDBF #### [address] [address] Sodium [Moles/Vol] 143 mmol/L Normal 136-145 [facility] Comment on above: Performed By: #### P ROBF, BFPR, PHBF, BFCT, GLUBF, LDBF #### [place] [id number] Total Protein 6.3 G/dL Normal 5.7-8.2 [facility] Comment on above: Performed By: #### P ROBF, BFPR, PHBF, BFCT, GLUBF, LDBF #### [place] [address] Urea nitrogen [Mass/Vol] 49.0 mg/dL High 8.0-22.0 [facility] Comment on above: Performed By: #### P ROBF, BFPR, PHBF, BFCT, GLUBF, LDBF #### [place] [address] LABORATORYOrdered By: SYSTEM SYSTEM on 04-13-2025 Troponin I.cardiac DL <= 0.01 ng/mL [Mass/Vol] 174 ng/L High 0 - 54 ng/L ADM Comment on above: Interpretive Data: High Sensitive Troponin I Reference Ranges: Female: 0-34 ng/L Male: 0-54 ng/L Testing performed on [employer] analyzer using direct chemiluminescent technology. Lactate [Moles/Vol] 1.2 mmol/L Normal 0.5 - 2. 2 mmol/L ADM SS Natriuretic peptide.B prohormone N-Terminal IA [Mass/Vol] 6315 pg/mL High 0 - 1800 pg/mL ADM SS PT Coag (PPP) [Time] 14.5 s High 9.0 - 1 4.4 seconds AH [facility] SS Comment on above: Interpretive Data: E ffective 03/03/08, Protime results may be affected by some antibiotics (i.e. Ciprofloxacin, Azithromycin, Bactrim) which may potentiate the action of oral anticoagulants, with further increases in Protime/INR. PT International Ratio 1.3 ratio Invalid Interpretation Code [facility] Comment on above: Interpretive Data: T he [employer] (CHEST, 1991, 102:312S-25S) [...] ng/L Male: 0-54 ng/L Testing performed on [employer] analyzer using direct chemiluminescent technology. LABORATORYOrdered By: [...] Repeat testing is suggested if clinically indicated. ANCELMOon 04-13-2025 Lactic Acid Lvl 1.2 mmol/L Normal 0.5-2.2 [facility] Comment on above: Performed By: #### P ROBF, BFPR, PHBF, BFCT, GLUBF, LDBF #### [facility] [address] [place] [address] MGon 04-13-2025 Magnesium [Mass/Vol] 2.2 mg/dL Normal 1.6-2.4 [facility] Comment on above: Performed By: #### P ROBF, BFPR, PHBF, BFCT, GLUBF, LDBF #### [place] [id number] MYCOon 04-13-2025 Mycoplasma IgG Positive Normal [facility] Comment on above: Result Comment: INTE RPRETATION OF MYCOPLASMA IgG BY EIA: Negative: No detectable M. pneumoniae IgG antibody. Positive: Mycoplasma pneumoniae IgG antibody Detected. Equivocal: Equivocal for IgG antibodies to Mycoplasma pneumoniae. Suggest repeat testing in 10-14 days. Performed By: #### P ROBF, BFPR, PHBF, BFCT, GLUBF, LDBF #### [place] [address] Mycoplasma IgM Negative Normal [facility] Comment on above: Result [...] ROBF, BFPR, PHBF, BFCT, GLUBF, LDBF #### [place] [address] No Panel Informationon 04-13 Microscopic examination of blood, culture Culture has been received in lab and is no growth to date. Routine cultures are held for 5 days. [facility] Work Phone: PBNPon 04-13-2025 Natriuretic peptide B (Bld) [Mass/Vol] 6315 pg/mL High 0-1800 [facility] Comment on above: Performed By: #### P ROBF, BFPR, PHBF, BFCT, GLUBF, LDBF #### [place] [address] PROon 04-13-2025 INR Coag (PPP) [Relative time] 1.3 {INR} Normal [facility] Comment on above: Result Comment: The [employer] (CHEST, 1992, 102:312S-25S) recommended therapeutic range for oral anticoagulant therapy is: LOW RISK: Prophylaxis of venous thrombosis INR: 2.0-3.0 Treatment of pulmonary embolism 2.0-3.0 Prevention of systemic embolism 2.0-3.0 HIGH RISK: Mechanical prosthetic valves 2.5-3.5 Performed By: #### P ROBF, BFPR, PHBF, BFCT, GLUBF, LDBF #### [place] [address] PT Coag (PPP) [Time] 14.5 s High 9.0-14.4 [facility] Comment on above: Result Comment: Effe ctive 03/03/08, Protime results may be affected by some antibiotics (i.e. Ciprofloxacin, Azithromycin, Bactrim) which may potentiate the action of oral anticoagulants, with further increases in Protime/INR. Performed By: #### P ROBF, BFPR, PHBF, BFCT, GLUBF, LDBF #### [place] [address] TROPHSon 04-13-2025 High Sensitivity Troponin I 174 ng/L [address] MAIN Comment on above: Result Comment: High Sensitive Troponin I Reference Ranges: Female: 0-34 ng/L Male: 0-54 ng/L Testing performed on [facility] IM analyzer using direct chemiluminescent technology. Performed By: #### P ROBF, BFPR, PHBF, BFCT, GLUBF, LDBF #### [place] [address] High Sensitivity Troponin I 141 ng/L [address] MAIN Comment on above: Result Comment: High Sensitive Troponin I Reference Ranges: Female: 0-34 ng/L Male: 0-54 ng/L Testing performed on [employer] IM analyzer using direct chemiluminescent technology. Performed By: #### P ROBF, BFPR, PHBF, BFCT, GLUBF, LDBF #### [place] [address] XR CHEST 1 VIEWon 04-13-2025 XR CHEST [...] 04/13/2025 2:58:50 PM Ordering Provider: COLLEEN DOE [facility] 12 Lead EKGon 04-12-2025 12 Lead EKG Normal [facility] Absolute lymphocyte countOrd ered By: Daniel Brownlee on 04-12-2025 Lymphocytes Auto (Unsp spec) [#/Vol] 0.34 10*3/uL Low 0.83-4.51 [facility] Anion gap in Serum or Plasma Ordered By: Daniel Brownlee on 04-12-2025 Anion gap [Moles/Vol] 9 mmol/L 5-15 [facility] Automated lymphocyte count a s percentage of total leukocytesOrdered By: Daniel Brownlee on 04-12-2025 Lymphocytes/100 WBC Auto (Unsp spec) 2.5 % Low 19-41 [facility] BUN/creatinine ratioOrdered By: Daniel Brownlee on 04-12-2025 Urea nitrogen/Creatinine [Mass ratio] 41.9 mg/mg High 10-20 [facility] Basic Metabolic Profile (BMP )on 04-12-2025 BUN/CRE 41.9 RATIO High 10-20 [facility] Comment on above: Performed By: #### L 503.7505, L500.2500 ####[facility] [address] [place], [address] Calcium [Mass/Vol] 8.7 mg/dL Normal 7.6-11.0 [facility] Comment on above: Performed By: #### L 503.7505, L500.2500 ####[facility] [address] [place], [address] Chloride [Moles/Vol] 93 mmol/L Low 98-108 [facility] Comment on above: Performed By: #### L 503.7505, L500.2500 ####[facility] [address] [place], [address] CO2 [Moles/Vol] 36.5 mmol/L High 21.0-32.0 [facility] Comment on above: Performed By: #### L 503.7505, L500.2500 ####[facility] [address] [place], [address] Creatinine [Mass/Vol] 1.43 mg/dL High 0.70-1.20 [facility] Comment on above: Performed By: #### L 503.7505, L500.2500 ####[facility] [address] [place], [address] ECRCL 37.18 ml/min Low 50-250 [facility] Comment on above: Performed By: #### L 503.7505, L500.2500 ####[facility] [address] [place], [address] GAP 9 Normal 5-15 [facility] Comment on above: Performed By: #### L 503.7505, L500.2500 ####[facility] [address] [place], [address] GFR/1.73 sq M.predicted among non-blacks MDRD (S/P/Bld) [Vol rate/Area] 50 mL/min/{1.73_m2} Low >60 [facility] Comment on above: Result Comment: mL/m in/1.73m2 CKD-EPI Creatinine Equation (2020) Performed By: #### L 503.7505, L500.2500 ####[facility] [address] [place], [address] Glucose [Mass/Vol] 189 mg/dL High 70-99 [facility] Comment on above: Performed By: #### L 503.7505, L500.2500 ####[facility] [address] [place], [address] Potassium [Moles/Vol] 4.3 mmol/L Normal 3.3-5.1 [facility] Comment on above: Performed By: #### L 503.7505, L500.2500 ####[facility] [address] [place], [address] Sodium [Moles/Vol] 138 mmol/L Normal 133-145 [facility] Comment on above: Performed By: #### L 503.7505, L500.2500 ####[facility] [address] [place], [address] Urea nitrogen [Mass/Vol] 60 mg/dL High 4-19 [facility] Comment on above: Performed By: #### L 503.7505, L500.2500 ####[facility] [address] [place], [address] Basophil percentageOrdered B y: Daniel Brownlee on 04-12-2025 Basophils/100 WBC (Bld) 0.1 % 0-1 W [facility] Bedside Glucoseon 04-12-2025 FINGERSTICK GLU 143 mg/dL High 74-106 [facility] Comment on above: Result Comment: KODY GEMENT OF PATIENT CARE PER NURSING PROTOCOL Performed By: #### L 501.080 ####[facility] [address] [place], [address] FINGERSTICK GLU 222 mg/dL High 74-106 [facility] Comment on above: Result Comment: KODY GEMENT OF PATIENT CARE PER NURSING PROTOCOL Performed By: #### L 501.080 ####[facility] [address] [place], [address] FINGERSTICK GLU 222 mg/dL High 74-106 [facility] Comment on above: Result Comment: KODY GEMENT OF PATIENT CARE PER NURSING PROTOCOL Performed By: #### L 501.080 ####[facility] [address] [place], [address] Body Fluid Culton 04-12-2025 BFC Culture exhibits no growth. Normal [facility] Comment on above: Performed By: #### L 200.0200, M100.2900, M100.2000, M100.4001, L350.1000 ####[facility] [address] [place], [address] CBC W/Diff, Automatedon 03-21 Absolute Lymph 0.34 X10 3/uL Low 0.83-4.51 [facility] Comment on above: Performed By: #### L 501.4021, L100.0100 ####[facility] [address] [place], [address] Absolute Neut 12.7 X10 3/uL High 2.0-7.7 [facility] Comment on above: Performed By: #### L 501.4021, L100.0100 ####[facility] [address] [place], [address] Basophils/100 WBC (Bld) 0.1 % Normal 0-1 W [facility] Comment on above: Performed By: #### L 501.4021, L100.0100 ####[facility] [address] [place], [address] Eosinophils/100 WBC (Bld) 0.0 % Normal 0-5 [facility] Comment on above: Performed By: #### L 501.4021, L100.0100 ####[facility] [address] [place], [address] Erythrocyte distribution width (RBC) [Ratio] 16.6 % High 11.6-14.6 [facility] Comment on above: Performed By: #### L 501.4021, L100.0100 ####[facility] [address] [place], [address] Hematocrit (Bld) [Volume fraction] 29.6 % Low 40-54 [facility] Comment on above: Performed By: #### L 501.4021, L100.0100 ####[facility] [address] [place], [address] Hemoglobin (Bld) [Mass/Vol] 9.1 g/dL Low 13.0-16.5 [facility] Comment on above: Performed By: #### L 501.4021, L100.0100 ####[facility] [address] [place], [address] IG% 0.700 Normal 0.0-0.9 [facility] Comment on above: Result Comment: IG% - Immature Granulocytes (promyelocytes, myelocytes andmetamyelocytes) > 1% indicates that a LEFT SHIFT is Present. Performed By: #### L 501.4021, L100.0100 ####[facility] [address] [place], [address] Lymphocytes/100 WBC (Bld) 2.5 % Low 19-41 [facility] Comment on above: Performed By: #### L 501.4021, L100.0100 ####[facility] [address] [place], [address] MCH (RBC) [Entitic mass] 27.2 pg Normal 27.0-32.0 [facility] Comment on above: Performed By: #### L 501.4021, L100.0100 ####[facility] [address] [place], [address] MCHC (RBC) [Mass/Vol] 30.7 g/dL Low 32-36 [facility] Comment on above: Performed By: #### L 501.4021, L100.0100 ####[facility] [address] [place], [address] MCV (RBC) [Entitic vol] 88.4 fL Normal 80-94 W [facility] Comment on above: Performed By: #### L 501.4021, L100.0100 ####[facility] [address] [place], [address] Monocytes/100 WBC (Bld) 4.2 % Normal 0-10 [facility] Comment on above: Performed By: #### L 501.4021, L100.0100 ####[facility] [address] [place], [address] Neutrophils/100 WBC (Bld) 92.5 % High 47-70 [facility] Comment on above: Performed By: #### L 501.4021, L100.0100 ####[facility] [address] [place], [address] Nucleated RBC (Bld) [#/Vol] 0 10*3/uL Normal 0-5 [facility] Comment on above: Performed By: #### L 501.4021, L100.0100 ####[facility] [address] [place], [address] Platelet mean volume (Bld) [Entitic vol] 9.9 fL Normal 6.2-12.0 [facility] Comment on above: Performed By: #### L 501.4021, L100.0100 ####[facility] [address] [place], [address] Platelets (Bld) [#/Vol] 193 10*3/uL Normal 150-450 [facility] Comment on above: Performed By: #### L 501.4021, L100.0100 ####[facility] [address] [place], [address] RBC (Bld) [#/Vol] 3.35 10*6/uL Low 4.6-6.2 [facility] Comment on above: Performed By: #### L 501.4021, L100.0100 ####[facility] [address] [place], [address] RDW SD 53.6 fl High 35.1-43.9 [facility] Comment on above: Performed By: #### L 501.4021, L100.0100 ####[facility] [address] [place], [address] WBC (Bld) [#/Vol] 13.7 10*3/uL High 4.4-11.0 [facility] Comment on above: Performed By: #### L 501.4021, L100.0100 ####[facility] [address] [place], [address] Carbon dioxide, total [Moles /volume] in Central venous bloodOrdered By: Daniel Brownlee on 04-12-2025 CO2 [Moles/Vol] 36.5 mmol/L High 21.0-32.0 [facility] Chest PA and Lateralon 04-12 Chest PA and Lateral Normal [facility] Chest without Contraston Chest without Contrast Normal [facility] Chloride assayOrdered By: Kimo Brownlee on 04-12-2025 Chloride [Moles/Vol] 93 mmol/L Low 98-108 [facility] Culture, Anaerobic Any Sourc talat 04-12-2025 CUAN No anaerobic bacteri a isolated. Normal [facility] Comment on above: Performed By: #### L 200.0200, M100.2900, M100.2000, M100.4001, L350.1000 ####[facility] [address] [place], [place], [id number] Emergency Department Summary on 04-12-2025 Emergency Department Summary Normal [facility] Eosinophil percentageOrdered By: Daniel Brownlee on 04-12-2025 Eosinophils/100 WBC (Bld) 0.0 % 0-5 [facility] Erythrocyte distribution wid th ratioOrdered By: Daniel Brownlee on 04-12-2025 Erythrocyte distribution width (RBC) [Ratio] 16.6 % High 11.6-14.6 [facility] Erythrocyte distribution wid th standard deviationOrdered By: Daniel Brownlee on 04-12-2025 Erythrocyte distribution width (RBC) [Ratio] 53.6 fl High 35.1-43.9 [facility] Glomerular filtration rate ( GFR) estimation/1.73 sq m using serum, plasma, or whole bOrdered By: Daniel Brownlee on 04-12-2025 GFR/1.73 sq M.predicted among non-blacks MDRD (S/P/Bld) [Vol rate/Area] 50 mL/min/{1.73_m2} Low >60 [facility] deOrdered By: Valdez Olivo on 04-12-2025 Glucose [Mass/Vol] 143 mg/dL High 74-106 [facility] Hematocrit Auto (Bld) [Volum e fraction]Ordered By: Daniel Brownlee on 04-12-2025 Hematocrit (Bld) [Volume fraction] 29.6 % Low 40-54 [facility] Hemoglobin measurementOrdere d By: Daniel Brownlee on 04-12-2025 Hemoglobin (Bld) [Mass/Vol] 9.1 g/dL Low 13.0-16.5 [facility] Immature granulocytes/100 WB C Auto (Bld)Ordered By: Daniel Brownlee on 04-12-2025 Immature granulocytes/100 WBC (Bld) 0.700 % 0.0-0.9 [facility] L501.4021on 04-12-2025 Trop T High Sen 103 ng/L Invalid Interpretation Code <=22 [facility] Comment on above: Result Comment: Crit ical Result(s) Called [facility] at: 2036 by:RIVERA??Results read back by same. Performed By: #### L 501.4021, L100.0100 ####[facility] [address] [place], [address] MCV (mean corpuscular volume ) determinationOrdered By: Daniel Brownlee on 04-12-2025 MCV (RBC) [Entitic vol] 88.4 fL 80-94 W [facility] Mean corpuscular hemoglobin (MCH) determinationOrdered By: Daniel Brownlee on 04-12-2025 MCH (RBC) [Entitic mass] 27.2 pg 27.0-32.0 [facility] Monocyte percentageOrdered B y: Daniel Brownlee on 04-12-2025 Monocytes/100 WBC (Bld) 4.2 % 0-10 W [facility] Natriuretic peptide.B prohor girish N-Terminal [Mass/volume] in Serum or PlasmaOrdered By: Daniel Brownlee on 04-12-2025 Natriuretic peptide.B prohormone N-Terminal [Mass/Vol] 7022 pg/mL High <1800 [facility] Neutrophil percentageOrdered By: Daniel Brownlee on 04-12-2025 Neutrophils/100 WBC (Bld) 92.5 % High 47-70 [facility] Platelet countOrdered By: Kimo Brownlee on 04-12-2025 Platelets (Bld) [#/Vol] 193 10*3/uL 150-450 [facility] Potassium measurement (mass/ volume)Ordered By: Daniel Brownlee on 04-12-2025 Potassium (Unsp spec) [Mass/Vol] 4.3 mmol/L 3.3-5.1 [facility] Pro- Brain NATRIURETIC PEPTI Adrienne 04-12-2025 Natriuretic peptide B (Bld) [Mass/Vol] 7022 pg/mL High <=1800 [facility] Comment on above: Result Comment: Hear t Failure Unlikely: < 300 pg/mLHeart Failure Likely< 50 Years: > 450 pg/mL50-75 Years: > 900 pg/mL>75 Years: > 1800 pg/mL Performed By: #### L 503.7505, L500.2500 ####[facility] [address] [place], [place], [address] RBC Auto (Bld) [#/Vol]Ordere d By: Daniel Brownlee on 04-12-2025 RBC (Bld) [#/Vol] 3.35 10*6/uL Low 4.6-6.2 [facility] Serum creatinine measurement (mass/volume)Ordered By: Daniel Brownlee on 04-12-2025 Creatinine [Mass/Vol] 1.43 mg/dL High 0.70-1.20 [facility] Serum glucose measurement (m ass/volume)Ordered By: Daniel Brownlee on 04-12-2025 Glucose [Mass/Vol] 189 mg/dL High 70-99 [facility] Serum or plasma calcium kingsley urement (mass/volume)Ordered By: Daniel Brownlee on 04-12-2025 Calcium [Mass/Vol] 8.7 mg/dL 7.6-11.0 [facility] Serum or plasma urea nitroge n measurement (mass/volume)Ordered By: Daniel Brownlee on 04-12-2025 Urea nitrogen [Mass/Vol] 60 mg/dL High 4-19 [facility] Sodium levelOrdered By: Mickie Brownlee on 04-12-2025 Sodium [Moles/Vol] 138 mmol/L 133-145 [facility] Troponin T HS 2 HRon 025 Trop T High Sen 98 ng/L Invalid Interpretation Code <=22 [facility] Comment on above: Result Comment: Crit ical Result(s) Called [facility] at: 2234 by:RIVERA??Results read back by same. Performed By: #### L 499.0042 ####[facility] [address] [place], [place], [id number] Troponin T HS 4 HRon 025 Trop T High Sen Normal <=22 [facility] Comment on above: Result Comment: RAMÓN ENT DISCHARGED Performed By: #### L 499.0043 ####[facility] [address] [place], [address] Troponin T.cardiac [Mass/vol ume] in Serum or Plasma by High sensitivity methodOrdered By: Daniel Brownlee on 04-12-2025 Troponin T.cardiac High sensitivity method [Mass/Vol] 98 ng/L High <22 [facility] Troponin T.cardiac High sensitivity method [Mass/Vol] 103 ng/L High <22 [facility] White blood cell (WBC) count Ordered By: Daniel Brownlee on 04-12-2025 WBC (Bld) [#/Vol] 13.7 10*3/uL High 4.4-11.0 [facility] Absolute lymphocyte countOrd ered By: Valdez Olivo on 04-11-2025 Lymphocytes Auto (Unsp spec) [#/Vol] 0.34 10*3/uL Low 0.83-4.51 [facility] Anion gap in Serum or Plasma Ordered By: Valdez Olivo on 04-11-2025 Anion gap [Moles/Vol] 10 mmol/L 5-15 [facility] Automated lymphocyte count a s percentage of total leukocytesOrdered By: Valdez Olivo on 04-11-2025 Lymphocytes/100 WBC Auto (Unsp spec) 3.3 % Low 19-41 [facility] BUN/creatinine ratioOrdered By: Valdez Olivo on 04-11-2025 Urea nitrogen/Creatinine [Mass ratio] 42.1 mg/mg High 10-20 [facility] Basic Metabolic Profile (BMP )on 04-11-2025 BUN/CRE 42.1 RATIO High 10-20 [facility] Comment on above: Performed By: #### L 500.2500, L100.0100 ####[facility] [address] [place], [address] Calcium [Mass/Vol] 8.6 mg/dL Normal 7.6-11.0 [facility] Comment on above: Performed By: #### L 500.2500, L100.0100 ####[facility] [address] [place], [address] Chloride [Moles/Vol] 94 mmol/L Low 98-108 [facility] Comment on above: Performed By: #### L 500.2500, L100.0100 ####[facility] [address] [place], [address] CO2 [Moles/Vol] 33.4 mmol/L High 21.0-32.0 [facility] Comment on above: Performed By: #### L 500.2500, L100.0100 ####[facility] [address] [place], [address] Creatinine [Mass/Vol] 1.62 mg/dL High 0.70-1.20 [facility] Comment on above: Performed By: #### L 500.2500, L100.0100 ####[facility] [address] [place], [address] ECRCL 32.82 ml/min Low 50-250 [facility] Comment on above: Performed By: #### L 500.2500, L100.0100 ####[facility] [address] [place], [address] GAP 10 Normal 5-15 [facility] Comment on above: Performed By: #### L 500.2500, L100.0100 ####[facility] [address] [place], [address] GFR/1.73 sq M.predicted among non-blacks MDRD (S/P/Bld) [Vol rate/Area] 43 mL/min/{1.73_m2} Low >60 [facility] Comment on above: Result Comment: mL/m in/1.73m2 CKD-EPI Creatinine Equation (2020) Performed By: #### L 500.2500, L100.0100 ####[facility] [address] [place], [address] Glucose [Mass/Vol] 176 mg/dL High 70-99 [facility] Comment on above: Performed By: #### L 500.2500, L100.0100 ####[facility] [address] [place], [address] Potassium [Moles/Vol] 4.1 mmol/L Normal 3.3-5.1 [facility] Comment on above: Performed By: #### L 500.2500, L100.0100 ####[facility] [address] [place], [address] Sodium [Moles/Vol] 138 mmol/L Normal 133-145 [facility] Comment on above: Performed By: #### L 500.2500, L100.0100 ####[facility] [address] [place], [address] Urea nitrogen [Mass/Vol] 68 mg/dL High 4-19 [facility] Comment on above: Performed By: #### L 500.2500, L100.0100 ####[facility] [address] [place], [address] BUN Normal 4-19 [facility] Comment on above: Result Comment: Canc elled via OM: Order cancelled - Patient discharged Performed By: #### L 500.2500, L100.0100 ####[facility] [address] [place], [address] BUN/CRE Normal 10-20 [facility] Comment on above: Result Comment: Canc elled via OM: Order cancelled - Patient discharged Performed By: #### L 500.2500, L100.0100 ####[facility] [address] [place], [address] Calcium Normal 7.6-11.0 [facility] Comment on above: Result Comment: Canc elled via OM: Order cancelled - Patient discharged Performed By: #### L 500.2500, L100.0100 ####[facility] [address] [place], [address] CL Normal 98-108 [facility] Comment on above: Result Comment: Canc elled via OM: Order cancelled - Patient discharged Performed By: #### L 500.2500, L100.0100 ####[facility] [address] [place], [address] CO2 Normal 21.0-32.0 [facility] Comment on above: Result Comment: Canc elled via OM: Order cancelled - Patient discharged Performed By: #### L 500.2500, L100.0100 ####[facility] [address] [place], [address] CREAT,SERUM Normal 0.70-1.20 [facility] Comment on above: Result Comment: Canc elled via OM: Order cancelled - Patient discharged Performed By: #### L 500.2500, L100.0100 ####[facility] [address] [place], [address] eGFR Normal >60 [facility] Comment on above: Result Comment: Canc elled via OM: Order cancelled - Patient discharged Performed By: #### L 500.2500, L100.0100 ####[facility] [address] [place], [address] GAP Normal 5-15 [facility] Comment on above: Result Comment: Canc elled via OM: Order cancelled - Patient discharged Performed By: #### L 500.2500, L100.0100 ####[facility] [address] [place], [address] GLU Normal 70-99 [facility] Comment on above: Result Comment: Canc elled via OM: Order cancelled - Patient discharged Performed By: #### L 500.2500, L100.0100 ####[facility] [address] [place], [address] Potassium Normal 3.3-5.1 [facility] Comment on above: Result Comment: Canc elled via OM: Order cancelled - Patient discharged Performed By: #### L 500.2500, L100.0100 ####[facility] [address] [place], [address] Basic Metabolic Profile (BMP) Normal 133-145 [facility] Comment on above: Result Comment: Canc elled via OM: Order cancelled - Patient discharged Performed By: #### L 500.2500, L100.0100 ####[facility] [address] [place], [address] Basophil percentageOrdered B y: Valdez Lariosok on 04-11-2025 Basophils/100 WBC (Bld) 0.1 % 0-1 W [facility] Bedside Glucoseon 04-11-2025 FINGERSTICK GLU 323 mg/dL High 74-106 [facility] Comment on above: Result Comment: KODY GEMENT OF PATIENT CARE PER NURSING PROTOCOL Performed By: #### L 501.080 ####[facility] [address] [place], [address] FINGERSTICK GLU 166 mg/dL High 74-106 [facility] Comment on above: Result Comment: KODY GEMENT OF PATIENT CARE PER NURSING PROTOCOL Performed By: #### L 501.080 ####[facility] [address] [place], [address] FINGERSTICK GLU 273 mg/dL High 74-106 [facility] Comment on above: Result Comment: KODY GEMENT OF PATIENT CARE PER NURSING PROTOCOL Performed By: #### L 501.080 ####[facility] [address] [place], [address] CBC W/Diff, Automatedon 03-21 Absolute Lymph 0.34 X10 3/uL Low 0.83-4.51 [facility] Comment on above: Performed By: #### L 500.2500, L100.0100 ####[facility] [address] [place], [address] Absolute Neut 9.0 X10 3/uL High 2.0-7.7 [facility] Comment on above: Performed By: #### L 500.2500, L100.0100 ####[facility] [address] [place], [address] Basophils/100 WBC (Bld) 0.1 % Normal 0-1 W [facility] Comment on above: Performed By: #### L 500.2500, L100.0100 ####[facility] [address] [place], [address] Eosinophils/100 WBC (Bld) 0.0 % Normal 0-5 [facility] Comment on above: Performed By: #### L 500.2500, L100.0100 ####[facility] [address] [place], [address] Erythrocyte distribution width (RBC) [Ratio] 16.6 % High 11.6-14.6 [facility] Comment on above: Performed By: #### L 500.2500, L100.0100 ####[facility] [address] [place], [address] Hematocrit (Bld) [Volume fraction] 28.4 % Low 40-54 [facility] Comment on above: Performed By: #### L 500.2500, L100.0100 ####[facility] [address] [place], [address] Hemoglobin (Bld) [Mass/Vol] 8.7 g/dL Low 13.0-16.5 [facility] Comment on above: Performed By: #### L 500.2500, L100.0100 ####[facility] [address] [place], [address] IG% 0.600 Normal 0.0-0.9 [facility] Comment on above: Result Comment: IG% - Immature Granulocytes (promyelocytes, myelocytes andmetamyelocytes) > 1% indicates that a LEFT SHIFT is Present. Performed By: #### L 500.2500, L100.0100 ####[facility] [address] [place], [address] Lymphocytes/100 WBC (Bld) 3.3 % Low 19-41 [facility] Comment on above: Performed By: #### L 500.2500, L100.0100 ####[facility] [address] [place], [address] MCH (RBC) [Entitic mass] 26.7 pg Low 27.0-32.0 [facility] Comment on above: Performed By: #### L 500.2500, L100.0100 ####[facility] [address] [place], [address] MCHC (RBC) [Mass/Vol] 30.6 g/dL Low 32-36 [facility] Comment on above: Performed By: #### L 500.2500, L100.0100 ####[facility] [address] [place], [address] MCV (RBC) [Entitic vol] 87.1 fL Normal 80-94 W [facility] Comment on above: Performed By: #### L 500.2500, L100.0100 ####[facility] [address] [place], [address] Monocytes/100 WBC (Bld) 8.7 % Normal 0-10 W [facility] Comment on above: Performed By: #### L 500.2500, L100.0100 ####[facility] [address] [place], [address] Neutrophils/100 WBC (Bld) 87.3 % High 47-70 [facility] Comment on above: Performed By: #### L 500.2500, L100.0100 ####[facility] [address] [place], [address] Nucleated RBC (Bld) [#/Vol] 0 10*3/uL Normal 0-5 [facility] Comment on above: Performed By: #### L 500.2500, L100.0100 ####[facility] [address] [place], [address] Platelet mean volume (Bld) [Entitic vol] 10.2 fL Normal 6.2-12.0 [facility] Comment on above: Performed By: #### L 500.2500, L100.0100 ####[facility] [address] [place], [address] Platelets (Bld) [#/Vol] 186 10*3/uL Normal 150-450 [facility] Comment on above: Performed By: #### L 500.2500, L100.0100 ####[facility] [address] [place], [address] RBC (Bld) [#/Vol] 3.26 10*6/uL Low 4.6-6.2 [facility] Comment on above: Performed By: #### L 500.2500, L100.0100 ####[facility] [address] [place], [address] RDW SD 52.9 fl High 35.1-43.9 [facility] Comment on above: Performed By: #### L 500.2500, L100.0100 ####[facility] [address] [place], [address] WBC (Bld) [#/Vol] 10.3 10*3/uL Normal 4.4-11.0 [facility] Comment on above: Performed By: #### L 500.2500, L100.0100 ####[facility] [address] [place], [address] Absolute Neut Normal 2.0-7.7 [facility] Comment on above: Result Comment: Canc elled via OM: Order cancelled - Patient discharged Performed By: #### L 500.2500, L100.0100 ####[facility] [address] [place], [address] HCT Normal 40-54 [facility] Comment on above: Result Comment: Canc elled via OM: Order cancelled - Patient discharged Performed By: #### L 500.2500, L100.0100 ####[facility] [address] [place], [address] HGB Normal 13.0-16.5 [facility] Comment on above: Result Comment: Canc elled via OM: Order cancelled - Patient discharged Performed By: #### L 500.2500, L100.0100 ####[facility] [address] [place], [address] MCH Normal 27.0-32.0 [facility] Comment on above: Result Comment: Canc elled via OM: Order cancelled - Patient discharged Performed By: #### L 500.2500, L100.0100 ####[facility] [address] [place], [address] MCHC Normal 32-36 [facility] Comment on above: Result Comment: Canc elled via OM: Order cancelled - Patient discharged Performed By: #### L 500.2500, L100.0100 ####[facility] [address] [place], [address] MCV Normal 80-94 [facility] Comment on above: Result Comment: Canc elled via OM: Order cancelled - Patient discharged Performed By: #### L 500.2500, L100.0100 ####[facility] [address] [place], [address] NEUT% Normal 47-70 [facility] Comment on above: Result Comment: Canc elled via OM: Order cancelled - Patient discharged Performed By: #### L 500.2500, L100.0100 ####[facility] [address] [place], [address] PLT Normal 150-450 [facility] Comment on above: Result Comment: Canc elled via OM: Order cancelled - Patient discharged Performed By: #### L 500.2500, L100.0100 ####[facility] [address] [place], [address] RBC Normal 4.6-6.2 [facility] Comment on above: Result Comment: Canc elled via OM: Order cancelled - Patient discharged Performed By: #### L 500.2500, L100.0100 ####[facility] [address] [place], [address] RDW CV Normal 11.6-14.6 [facility] Comment on above: Result Comment: Canc elled via OM: Order cancelled - Patient discharged Performed By: #### L 500.2500, L100.0100 ####[facility] [address] [place], [address] RDW SD Normal 35.1-43.9 [facility] Comment on above: Result Comment: Canc elled via OM: Order cancelled - Patient discharged Performed By: #### L 500.2500, L100.0100 ####[facility] [address] [place], [address] WBC Normal 4.4-11.0 [facility] Comment on above: Result Comment: Canc elled via OM: Order cancelled - Patient discharged Performed By: #### L 500.2500, L100.0100 ####[facility] [address] [place], [address] COVID 19 AG RAPID (KHURRAM Becerril)on 04-11-2025 SARS-CoV-2 (COVID-19) RNA BRYAN+probe Ql (Unsp spec) Normal [facility] Comment on above: Performed By: #### M 100.505 ####[facility] [address] [place], [place], [id number] COVID-19 virus antigen assay Ordered By: Valdez Geovani on 04-11-2025 SARS-CoV-2 (COVID-19) Ag IA.rapid Ql (Resp) [facility] Carbon dioxide, total [Moles /volume] in Central venous bloodOrdered By: Valdez Geovani on 04-11-2025 CO2 [Moles/Vol] 33.4 mmol/L High 21.0-32.0 [facility] Chloride assayOrdered By: Aiden Olivo on 04-11-2025 Chloride [Moles/Vol] 94 mmol/L Low 98-108 [facility] Eosinophil percentageOrdered By: Valdez Geovani on 04-11-2025 Eosinophils/100 WBC (Bld) 0.0 % 0-5 [facility] Erythrocyte distribution wid th ratioOrdered By: Valdez Geovani on 04-11-2025 Erythrocyte distribution width (RBC) [Ratio] 16.6 % High 11.6-14.6 [facility] Erythrocyte distribution wid th standard deviationOrdered By: Valdez Olivo on 04-11-2025 Erythrocyte distribution width (RBC) [Ratio] 52.9 fl High 35.1-43.9 [facility] Glomerular filtration rate ( GFR) estimation/1.73 sq m using serum, plasma, or whole bOrdered By: Valdez Geovani on 04-11-2025 GFR/1.73 sq M.predicted among non-blacks MDRD (S/P/Bld) [Vol rate/Area] 43 mL/min/{1.73_m2} Low >60 [facility] Gram Stainon 04-11-2025 GS Centrifuged Specimen ? Culture performed on centrifuged specimen Gram Stain 1+ White Blood Cells No organisms seen Normal [facility] Comment on above: Performed By: #### L 200.0200, M100.2900, M100.2000, M100.4001, L350.1000 ####[facility] [address] [place], [address] Hematocrit Auto (Bld) [Volum e fraction]Ordered By: Valdez Olivo on 04-11-2025 Hematocrit (Bld) [Volume fraction] 28.4 % Low 40-54 [facility] Hemoglobin measurementOrdere d By: Valdez Olivo on 04-11-2025 Hemoglobin (Bld) [Mass/Vol] 8.7 g/dL Low 13.0-16.5 [facility] Immature granulocytes/100 WB C Auto (Bld)Ordered By: Valdez Olivo on 04-11-2025 Immature granulocytes/100 WBC (Bld) 0.600 % 0.0-0.9 [facility] MCV (mean corpuscular volume ) determinationOrdered By: Valdez Olivo on 04-11-2025 MCV (RBC) [Entitic vol] 87.1 fL 80-94 [facility] [facility] Mean corpuscular hemoglobin (MCH) determinationOrdered By: Valdez Olivo on 04-11-2025 MCH (RBC) [Entitic mass] 26.7 pg Low 27.0-32.0 [facility] Monocyte percentageOrdered B y: Valdez Olivo on 04-11-2025 Monocytes/100 WBC (Bld) 8.7 % 0-10 W [facility] Neutrophil percentageOrdered By: Valdez Olivo on 04-11-2025 Neutrophils/100 WBC (Bld) 87.3 % High 47-70 [facility] Platelet countOrdered By: Aiden Olivo on 04-11-2025 Platelets (Bld) [#/Vol] 186 10*3/uL 150-450 [facility] Potassium measurement (mass/ volume)Ordered By: Valdez Olivo on 04-11-2025 Potassium (Unsp spec) [Mass/Vol] 4.1 mmol/L 3.3-5.1 [facility] RBC Auto (Bld) [#/Vol]Ordere d By: Valdez Olivo on 04-11-2025 RBC (Bld) [#/Vol] 3.26 10*6/uL Low 4.6-6.2 [facility] Serum creatinine measurement (mass/volume)Ordered By: Valdez Olivo on 04-11-2025 Creatinine [Mass/Vol] 1.62 mg/dL High 0.70-1.20 [facility] Serum glucose measurement (m ass/volume)Ordered By: Valdez Olivo on 04-11-2025 Glucose [Mass/Vol] 176 mg/dL High 70-99 [facility] Serum or plasma calcium kingsley urement (mass/volume)Ordered By: Valdez Olivo on 04-11-2025 Calcium [Mass/Vol] 8.6 mg/dL 7.6-11.0 [facility] Serum or plasma urea nitroge n measurement (mass/volume)Ordered By: Valdez Olivo on 04-11-2025 Urea nitrogen [Mass/Vol] 68 mg/dL High 4-19 [facility] Sodium levelOrdered By: Valdez Olivo on 04-11-2025 Sodium [Moles/Vol] 138 mmol/L 133-145 [facility] White blood cell (WBC) count Ordered By: Valdez Olivo on 04-11-2025 WBC (Bld) [#/Vol] 10.3 10*3/uL 4.4-11.0 [facility] Absolute lymphocyte countOrd ered By: Nicola Roman on 04-10-2025 Lymphocytes Auto (Unsp spec) [#/Vol] 0.17 10*3/uL Low 0.83-4.51 [facility] Activated partial thrombopla stin time (aPTT) in platelet poor plasma by coagulation aOrdered By: Nicola Marroquin on 04-10-2025 aPTT Coag (PPP) [Time] 29.5 s 24.1-36.2 [facility] Anaerobic cultureOrdered By: Nicola Roman on 04-10-2025 Bacteria identified Anaer cx Nom (Unsp spec) No anaerobic bacteria isolated. [facility] Anion gap in Serum or Plasma Ordered By: Nicola Roman on 04-10-2025 Anion gap [Moles/Vol] 12 mmol/L 5-15 [facility] Automated lymphocyte count a s percentage of total leukocytesOrdered By: Nicola Roman on 04-10-2025 Lymphocytes/100 WBC Auto (Unsp spec) 1.9 % Low 19-41 [facility] BUN/creatinine ratioOrdered By: Nicola Roman on 04-10-2025 Urea nitrogen/Creatinine [Mass ratio] 44.4 mg/mg High 10-20 [facility] Basic Metabolic Profile (BMP )on 04-10-2025 BUN/CRE 44.4 RATIO High 10- [facility] Comment on above: Performed By: #### L 100.0100, L500.2500 ####[facility] [address] [place], [address] Calcium [Mass/Vol] 8.4 mg/dL Normal 7.6-11.0 [facility] Comment on above: Performed By: #### L 100.0100, L500.2500 ####[facility] [address] [place], [address] Chloride [Moles/Vol] 92 mmol/L Low 98-108 [facility] Comment on above: Performed By: #### L 100.0100, L500.2500 ####[facility] [address] [place], [address] CO2 [Moles/Vol] 32.1 mmol/L High 21.0-32.0 [facility] Comment on above: Performed By: #### L 100.0100, L500.2500 ####[facility] [address] [place], [address] Creatinine [Mass/Vol] 1.71 mg/dL High 0.70-1.20 [facility] Comment on above: Performed By: #### L 100.0100, L500.2500 ####[facility] [address] [place], [address] ECRCL 31.09 ml/min Low 50-250 [facility] Comment on above: Performed By: #### L 100.0100, L500.2500 ####[facility] [address] [place], [address] GAP 12 Normal 5-15 [facility] Comment on above: Performed By: #### L 100.0100, L500.2500 ####[facility] [address] [place], [address] GFR/1.73 sq M.predicted among non-blacks MDRD (S/P/Bld) [Vol rate/Area] 40 mL/min/{1.73_m2} Low >60 [facility] Comment on above: Result Comment: mL/m in/1.73m2 CKD-EPI Creatinine Equation (2020) Performed By: #### L 100.0100, L500.2500 ####[facility] [address] [place], [address] Glucose [Mass/Vol] 244 mg/dL High 70-99 [facility] Comment on above: Performed By: #### L 100.0100, L500.2500 ####[facility] [address] [place], [address] Potassium [Moles/Vol] 4.1 mmol/L Normal 3.3-5.1 [facility] Comment on above: Performed By: #### L 100.0100, L500.2500 ####[facility] [address] [place], [address] Sodium [Moles/Vol] 137 mmol/L Normal 133-145 [facility] Comment on above: Performed By: #### L 100.0100, L500.2500 ####[facility] [address] [place], [address] Urea nitrogen [Mass/Vol] 76 mg/dL High 4-19 [facility] Comment on above: Performed By: #### L 100.0100, L500.2500 ####[facility] [address] [place], [address] Basophil percentageOrdered B y: Nicola Roman on 04-10-2025 Basophils/100 WBC (Bld) 0.1 % 0-1 W [facility] Bedside Glucoseon 04-10-2025 FINGERSTICK GLU 341 mg/dL High 74-106 [facility] Comment on above: Result Comment: KODY STRONG OF PATIENT CARE PER NURSING PROTOCOL Performed By: #### L 501.080 ####[facility] [address] [place], [address] FINGERSTICK GLU 327 mg/dL High 74-106 [facility] Comment on above: Result Comment: KODY GEMENT OF PATIENT CARE PER NURSING PROTOCOL Performed By: #### L 501.080 ####[facility] [address] [place], [address] FINGERSTICK GLU 346 mg/dL High 74-106 [facility] Comment on above: Result Comment: KODY GEMENT OF PATIENT CARE PER NURSING PROTOCOL Performed By: #### L 501.080 ####[facility] [address] [place], [address] FINGERSTICK GLU 236 mg/dL High -106 [facility] Comment on above: Result Comment: KODY GEMENT OF PATIENT CARE PER NURSING PROTOCOL Performed By: #### L 501.080 ####[facility] [address] [place], [address] Body Fluid Cell Count+Diffon 04-10-2025 PATH COMM/BF Reviewed Normal [facility] Comment on above: Order Comment: The r eference range and other method performancespecifications have not been established for this bodyfluid. The test must be integrated into the clinicalcontext for interpretation. 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 OCCASIONAL MESOTHELIAL CELLSNOTED. NO MALIGNANT CELLS IDENTIFIED.Ludmila GOMEZ MD 04/10/25 @1730 AMENDED REPORT 04/10/25 1735 PATH COMM/BF previously reported as: May follow Performed By: #### L 200.0200, M100.2900, M100.2000, M100.4001, L350.1000 ####[facility] [address] [place], [address] Body fluid appearance (nomin al result)Ordered By: Nicola Roman on 04-10-2025 Appearance (Body fld) CLEAR [facility] Body fluid color determinati onOrdered By: Nicola Roman on 04-10-2025 Color (Body fld) YELLOW [facility] Body fluid cultureOrdered By : Nicola Roman on 04-10-2025 Microbial culture, body fluid Culture exhibits no growth. [facility] Body fluid lactate dehydroge nase measurement (enzymatic activity/volume) by pyruvateOrdered By: Nicola Roman on 04-10-2025 LDH Pyruvate to lactate reaction (Body fld) [Catalytic activity/Vol] 61 Units/L Not Establ. [facility] Body fluid leukocytes count (number/volume)Ordered By: Nicola Roman on 04-10-2025 WBC (Body fld) [#/Vol] 0.128 10*3/uL [facility] Body fluid lymphocytes/100 l eukocytesOrdered By: Nicola Roman on 04-10-2025 Lymphocytes/100 WBC (Body fld) 44 % [facility] Body fluid macrophage countO rdered By: Nicola Roman on 04-10-2025 Macrophages (Body fld) [#/Vol] 41 % [facility] Body fluid mononuclear cell percentageOrdered By: Nicola Roman on 04-10-2025 Mononuclear cells/100 WBC (Body fld) 94.6 % [facility] Body fluid protein measureme nt (mass/volume)Ordered By: Nicola Roman on 04-10-2025 Protein (Body fld) [Mass/Vol] 2.1 g/dL Not Establ. [facility] Body fluid segmented neutrop hils count (number/volume)Ordered By: Nicola Roman on 04-10-2025 Segmented neutrophils (Body fld) [#/Vol] 6 % [facility] Body fluid total cell countO rdered By: Nicola Roman on 04-10-2025 Cells Counted Total (Body fld) [#] 0.154 10^3/ul [facility] CBC W/Diff, Automatedon 03-21 Absolute Lymph 0.17 X10 3/uL Low 0.83-4.51 [facility] Comment on above: Performed By: #### L 100.0100, L500.2500 ####[facility] [address] [place], [address] Absolute Neut 8.2 X10 3/uL High 2.0-7.7 [facility] Comment on above: Performed By: #### L 100.0100, L500.2500 ####[facility] [address] [place], [address] Basophils/100 WBC (Bld) 0.1 % Normal 0-1 W [facility] Comment on above: Performed By: #### L 100.0100, L500.2500 ####[facility] [address] [place], [address] Eosinophils/100 WBC (Bld) 0.0 % Normal 0-5 [facility] Comment on above: Performed By: #### L 100.0100, L500.2500 ####[facility] [address] [place], [address] Erythrocyte distribution width (RBC) [Ratio] 17.1 % High 11.6-14.6 [facility] Comment on above: Performed By: #### L 100.0100, L500.2500 ####[facility] [address] [place], [address] Hematocrit (Bld) [Volume fraction] 28.2 % Low 40-54 [facility] Comment on above: Performed By: #### L 100.0100, L500.2500 ####[facility] [address] [place], [address] Hemoglobin (Bld) [Mass/Vol] 8.7 g/dL Low 13.0-16.5 [facility] Comment on above: Performed By: #### L 100.0100, L500.2500 ####[facility] [address] [place], [address] IG% 0.900 Normal 0.0-0.9 [facility] Comment on above: Result Comment: IG% - Immature Granulocytes (promyelocytes, myelocytes andmetamyelocytes) > 1% indicates that a LEFT SHIFT is Present. Performed By: #### L 100.0100, L500.2500 ####[facility] [address] [place], [address] Lymphocytes/100 WBC (Bld) 1.9 % Low 19-41 [facility] Comment on above: Performed By: #### L 100.0100, L500.2500 ####[facility] [address] [place], [address] MCH (RBC) [Entitic mass] 26.9 pg Low 27.0-32.0 [facility] Comment on above: Performed By: #### L 100.0100, L500.2500 ####[facility] [address] [place], [address] MCHC (RBC) [Mass/Vol] 30.9 g/dL Low 32-36 [facility] Comment on above: Performed By: #### L 100.0100, L500.2500 ####[facility] [address] [place], [address] MCV (RBC) [Entitic vol] 87.0 fL Normal 80-94 W [facility] Comment on above: Performed By: #### L 100.0100, L500.2500 ####[facility] [address] [place], [address] Monocytes/100 WBC (Bld) 5.5 % Normal 0-10 W [facility] Comment on above: Performed By: #### L 100.0100, L500.2500 ####[facility] [address] [place], [address] Neutrophils/100 WBC (Bld) 91.6 % High 47-70 [facility] Comment on above: Performed By: #### L 100.0100, L500.2500 ####[facility] [address] [place], [address] Nucleated RBC (Bld) [#/Vol] 0.2 10*3/uL Normal 0-5 [facility] Comment on above: Performed By: #### L 100.0100, L500.2500 ####[facility] [address] [place], [address] Platelet mean volume (Bld) [Entitic vol] 10.0 fL Normal 6.2-12.0 [facility] Comment on above: Performed By: #### L 100.0100, L500.2500 ####[facility] [address] [place], [address] Platelets (Bld) [#/Vol] 208 10*3/uL Normal 150-450 [facility] Comment on above: Performed By: #### L 100.0100, L500.2500 ####[facility] [address] [place], [address] RBC (Bld) [#/Vol] 3.24 10*6/uL Low 4.6-6.2 [facility] Comment on above: Performed By: #### L 100.0100, L500.2500 ####[facility] [address] [place], [address] RDW SD 53.5 fl High 35.1-43.9 [facility] Comment on above: Performed By: #### L 100.0100, L500.2500 ####[facility] [address] [place], [address] WBC (Bld) [#/Vol] 9.0 10*3/uL Normal 4.4-11.0 [facility] Comment on above: Performed By: #### L 100.0100, L500.2500 ####[facility] [address] [place], [address] Carbon dioxide, total [Moles /volume] in Central venous bloodOrdered By: Nicola Roman on 04-10-2025 CO2 [Moles/Vol] 32.1 mmol/L High 21.0-32.0 [facility] Chest without Contraston Chest without Contrast Normal [facility] Chloride assayOrdered By: Stephen Roman on 04-10-2025 Chloride [Moles/Vol] 92 mmol/L Low 98-108 [facility] Cytology report of Body flui d Cyto stainOrdered By: Nicola Roman on 04-10-2025 Cytology report Cyto stain Doc (Body fld) SEE PATHOLOGY REPORT [facility] Cytology, Body Fluid / CSFon 04-10-2025 CYTOLOGY,BF/CSF SEE PATHOLOGY REPORT Normal [facility] Comment on above: Result Comment: Spec imen submitted to Anatomical Pathology Department fortesting. Performed By: #### L 200.0200, M100.2900, M100.2000, M100.4001, L350.1000 ####[facility] [address] [place], [address] Eosinophil percentageOrdered By: Nicola Roman on 04-10-2025 Eosinophils/100 WBC (Bld) 0.0 % 0-5 [facility] Erythrocyte distribution wid th ratioOrdered By: Nicola Roman on 04-10-2025 Erythrocyte distribution width (RBC) [Ratio] 17.1 % High 11.6-14.6 [facility] Erythrocyte distribution wid th standard deviationOrdered By: Nicola Roman on 04-10-2025 Erythrocyte distribution width (RBC) [Ratio] 53.5 fl High 35.1-43.9 [facility] Glomerular filtration rate ( GFR) estimation/1.73 sq m using serum, plasma, or whole bOrdered By: Nicola Roman on 04-10-2025 GFR/1.73 sq M.predicted among non-blacks MDRD (S/P/Bld) [Vol rate/Area] 40 mL/min/{1.73_m2} Low >60 [facility] Glucose measurement at bedsi deOrdered By: Nicola Roman on 04-10-2025 Glucose [Mass/Vol] 327 mg/dL High 74-106 [facility] Glucose, Body Fluidon 2024 GLUC, BODY FLD 274 mg/dL Normal Not Establ. [facility] Comment on above: Performed By: #### L 504.0250, L503.0100, L503.0300 ####[facility] [address] [place], [address] Gram stainOrdered By: Nicola Roman on 04-10-2025 Microscopic observation Gram stain Nom (Unsp spec) [facility] Hematocrit Auto (Bld) [Volum e fraction]Ordered By: Nicola Roman on 04-10-2025 Hematocrit (Bld) [Volume fraction] 28.2 % Low 40-54 [facility] Hemoglobin measurementOrdere d By: Nicola Roman on 04-10-2025 Hemoglobin (Bld) [Mass/Vol] 8.7 g/dL Low 13.0-16.5 [facility] Immature granulocytes/100 WB C Auto (Bld)Ordered By: Nicola Roman on 04-10-2025 Immature granulocytes/100 WBC (Bld) 0.900 % 0.0-0.9 [facility] LDHon 04-10-2025 LDH 179 U/L Normal 87-241 [facility] Comment on above: Order Comment: FG1 3 O Performed By: #### L 504.2610 ####[facility] [address] [place], [address] LDH,Body Fluidon 04-10-2025 LDH,BF 61 Units/L Normal Not Establ. [facility] Comment on above: Performed By: #### L 504.0250, L503.0100, L503.0300 ####[facility] [address] [place], [address] MCV (mean corpuscular volume ) determinationOrdered By: Nicola Roman on 04-10-2025 MCV (RBC) [Entitic vol] 87.0 fL 80-94 W [facility] Mean corpuscular hemoglobin (MCH) determinationOrdered By: Nicola Roman on 04-10-2025 MCH (RBC) [Entitic mass] 26.9 pg Low 27.0-32.0 [facility] Monocyte detectionOrdered By : Nicola Roman on 04-10-2025 Monocytes/100 WBC (Bld) 9 % W [facility] Monocyte percentageOrdered B y: Nicola Roman on 04-10-2025 Monocytes/100 WBC (Bld) 5.5 % 0-10 W [facility] Neutrophil percentageOrdered By: Nicola Roman on 04-10-2025 Neutrophils/100 WBC (Bld) 91.6 % High 47-70 [facility] No Panel InformationOrdered By: Nicola Roman on 04-10-2025 495 /mm3 [facility] SEE COMMENT [facility] Pacemaker Checkon 04-10-2025 Pacemaker Check Normal [facility] Partial Thromboplast Timeon 04-10-2025 aPTT Coag (Bld) [Time] 29.5 s Normal 24.1-36.2 [facility] Comment on above: Performed By: #### L 300.3900, L300.4310 ####[facility] [address] [place], [place], [id number] Pathologist interpretation o f Body fluid testsOrdered By: Nicola Roman on 04-10-2025 Pathologist interpretation (Body fld) [Interp] Reviewed [facility] Platelet countOrdered By: Stephen Roman on 04-10-2025 Platelets (Bld) [#/Vol] 208 10*3/uL 150-450 [facility] Potassium measurement (mass/ volume)Ordered By: Nicola Roman on 04-10-2025 Potassium (Unsp spec) [Mass/Vol] 4.1 mmol/L 3.3-5.1 [facility] Protein, Body Fluidon 2024 Protein [Mass/Vol] 2.1 g/dL Normal Not Establ. [facility] Comment on above: Performed By: #### L 504.0250, L503.0100, L503.0300 ####[facility] [address] [place], [place], [id number] Prothrombin Time w/INRon INR Coag (PPP) [Relative time] 1.3 {INR} Normal [facility] Comment on above: Performed By: #### L 300.3900, L300.4310 ####[facility] [address] [place], [place], [address] PT Coag (PPP) [Time] 16.7 s High 11.7-14.9 [facility] Comment on above: Performed By: #### L 300.3900, L300.4310 ####[facility] [address] [place], [place], [id number] Prothrombin timeOrdered By: Nicola Marroquin on 04-10-2025 PT Coag (PPP) [Time] 16.7 s High 11.7-14.9 [facility] RBC Auto (Bld) [#/Vol]Ordere d By: Nicola Roman on 04-10-2025 RBC (Bld) [#/Vol] 3.24 10*6/uL Low 4.6-6.2 [facility] Serum creatinine measurement (mass/volume)Ordered By: Nicola Roman on 04-10-2025 Creatinine [Mass/Vol] 1.71 mg/dL High 0.70-1.20 [facility] Serum glucose measurement (m ass/volume)Ordered By: Nicola Roman on 04-10-2025 Glucose [Mass/Vol] 244 mg/dL High 70-99 [facility] Serum or plasma calcium kingsley urement (mass/volume)Ordered By: Nicola Roman on 04-10-2025 Calcium [Mass/Vol] 8.4 mg/dL 7.6-11.0 [facility] Serum or plasma urea nitroge n measurement (mass/volume)Ordered By: Nicola Roman on 04-10-2025 Urea nitrogen [Mass/Vol] 76 mg/dL High 4-19 [facility] Sodium levelOrdered By: Jaspal Roman on 04-10-2025 Sodium [Moles/Vol] 137 mmol/L 133-145 [facility] Special Stain Group IIon Special Stain Group II Normal [facility] Comment on above: Performed By: #### P SSII ####[facility] [address] [place], [place], [id number] Specimen source identificati on of body fluidOrdered By: Nicola Roman on 04-10-2025 Specimen source Nom (Body fld) THORACENTESIS [facility] Thoracentesis W USon 025 Thoracentesis W US Normal [facility] White blood cell (WBC) count Ordered By: Nicola Roman on 04-10-2025 WBC (Bld) [#/Vol] 9.0 10*3/uL 4.4-11.0 [facility] 12 Lead EKGon 04-09-2025 12 Lead EKG Normal [facility] Basic Metabolic Profile (BMP )on 04-09-2025 BUN/CRE 37.7 RATIO High 10-20 [facility] Comment on above: Performed By: #### L 100.0100, L500.2500, L501.2300, L501.5200 ####[facility] [address] [place], [address] Calcium [Mass/Vol] 8.4 mg/dL Normal 7.6-11.0 [facility] Comment on above: Performed By: #### L 100.0100, L500.2500, L501.2300, L501.5200 ####[facility] [address] [place], [address] Chloride [Moles/Vol] 92 mmol/L Low 98-108 [facility] Comment on above: Performed By: #### L 100.0100, L500.2500, L501.2300, L501.5200 ####[facility] [address] [place], [address] CO2 [Moles/Vol] 31.9 mmol/L Normal 21.0-32.0 [facility] Comment on above: Performed By: #### L 100.0100, L500.2500, L501.2300, L501.5200 ####[facility] [address] [place], [address] Creatinine [Mass/Vol] 1.95 mg/dL High 0.70-1.20 [facility] Comment on above: Performed By: #### L 100.0100, L500.2500, L501.2300, L501.5200 ####[facility] [address] [place], [address] ECRCL 27.26 ml/min Low 50-250 [facility] Comment on above: Performed By: #### L 100.0100, L500.2500, L501.2300, L501.5200 ####[facility] [address] [place], [address] GAP 12 Normal 5-15 [facility] Comment on above: Performed By: #### L 100.0100, L500.2500, L501.2300, L501.5200 ####[facility] [address] [place], [address] GFR/1.73 sq M.predicted among non-blacks MDRD (S/P/Bld) [Vol rate/Area] 34 mL/min/{1.73_m2} Low >60 [facility] Comment on above: Result Comment: mL/m in/1.73m2 CKD-EPI Creatinine Equation (2020) Performed By: #### L 100.0100, L500.2500, L501.2300, L501.5200 ####[facility] [address] [place], [address] Glucose [Mass/Vol] 232 mg/dL High 70-99 [facility] Comment on above: Performed By: #### L 100.0100, L500.2500, L501.2300, L501.5200 ####[facility] [address] [place], [address] Potassium [Moles/Vol] 3.9 mmol/L Normal 3.3-5.1 [facility] Comment on above: Performed By: #### L 100.0100, L500.2500, L501.2300, L501.5200 ####[facility] [address] [place], [address] Sodium [Moles/Vol] 135 mmol/L Normal 133-145 [facility] Comment on above: Performed By: #### L 100.0100, L500.2500, L501.2300, L501.5200 ####[facility] [address] [place], [address] Urea nitrogen [Mass/Vol] 74 mg/dL High 4-19 [facility] Comment on above: Performed By: #### L 100.0100, L500.2500, L501.2300, L501.5200 ####[facility] [address] [place], [address] Bedside Glucoseon 04-09-2025 FINGERSTICK GLU 316 mg/dL High 74-106 [facility] Comment on above: Result Comment: KODY GEMENT OF PATIENT CARE PER NURSING PROTOCOL Performed By: #### L 501.080 ####[facility] [address] [place], [address] FINGERSTICK GLU 209 mg/dL High 74-106 [facility] Comment on above: Result Comment: KODY GEMENT OF PATIENT CARE PER NURSING PROTOCOL Performed By: #### L 501.080 ####[facility] [address] [place], [address] FINGERSTICK GLU 273 mg/dL High 74-106 [facility] Comment on above: Result Comment: KODY GEMENT OF PATIENT CARE PER NURSING PROTOCOL Performed By: #### L 501.080 ####[facility] [address] [place], [address] CBC W/Diff, Automatedon 08- Absolute Lymph 0.19 X10 3/uL Low 0.83-4.51 [facility] Comment on above: Performed By: #### L 100.0100, L500.2500, L501.2300, L501.5200 ####[facility] [address] [place], [address] Absolute Neut 6.3 X10 3/uL Normal 2.0-7.7 [facility] Comment on above: Performed By: #### L 100.0100, L500.2500, L501.2300, L501.5200 ####[facility] [address] [place], [address] Basophils/100 WBC (Bld) 0.1 % Normal 0-1 W [facility] Comment on above: Performed By: #### L 100.0100, L500.2500, L501.2300, L501.5200 ####[facility] [address] [place], [address] Eosinophils/100 WBC (Bld) 0.0 % Normal 0-5 [facility] Comment on above: Performed By: #### L 100.0100, L500.2500, L501.2300, L501.5200 ####[facility] [address] [place], [address] Erythrocyte distribution width (RBC) [Ratio] 16.9 % High 11.6-14.6 [facility] Comment on above: Performed By: #### L 100.0100, L500.2500, L501.2300, L501.5200 ####[facility] [address] [place], [address] Hematocrit (Bld) [Volume fraction] 27.7 % Low 40-54 [facility] Comment on above: Performed By: #### L 100.0100, L500.2500, L501.2300, L501.5200 ####[facility] [address] [place], [address] Hemoglobin (Bld) [Mass/Vol] 8.6 g/dL Low 13.0-16.5 [facility] Comment on above: Performed By: #### L 100.0100, L500.2500, L501.2300, L501.5200 ####[facility] [address] [place], [address] IG% 0.600 Normal 0.0-0.9 [facility] Comment on above: Result Comment: IG% - Immature Granulocytes (promyelocytes, myelocytes andmetamyelocytes) > 1% indicates that a LEFT SHIFT is Present. Performed By: #### L 100.0100, L500.2500, L501.2300, L501.5200 ####[facility] [address] [place], [address] Lymphocytes/100 WBC (Bld) 2.8 % Low 19-41 [facility] Comment on above: Performed By: #### L 100.0100, L500.2500, L501.2300, L501.5200 ####[facility] [address] [place], [address] MCH (RBC) [Entitic mass] 27.0 pg Normal 27.0-32.0 [facility] Comment on above: Performed By: #### L 100.0100, L500.2500, L501.2300, L501.5200 ####[facility] [address] [place], [address] MCHC (RBC) [Mass/Vol] 31.0 g/dL Low 32-36 [facility] Comment on above: Performed By: #### L 100.0100, L500.2500, L501.2300, L501.5200 ####[facility] [address] [place], [address] MCV (RBC) [Entitic vol] 87.1 fL Normal 80-94 W [facility] Comment on above: Performed By: #### L 100.0100, L500.2500, L501.2300, L501.5200 ####[facility] [address] [place], [address] Monocytes/100 WBC (Bld) 4.7 % Normal 0-10 W [facility] Comment on above: Performed By: #### L 100.0100, L500.2500, L501.2300, L501.5200 ####[facility] [address] [place], [address] Neutrophils/100 WBC (Bld) 91.8 % High 47-70 [facility] Comment on above: Performed By: #### L 100.0100, L500.2500, L501.2300, L501.5200 ####[facility] [address] [place], [address] Nucleated RBC (Bld) [#/Vol] 0.3 10*3/uL Normal 0-5 [facility] Comment on above: Performed By: #### L 100.0100, L500.2500, L501.2300, L501.5200 ####[facility] [address] [place], [address] Platelet mean volume (Bld) [Entitic vol] 10.1 fL Normal 6.2-12.0 [facility] Comment on above: Performed By: #### L 100.0100, L500.2500, L501.2300, L501.5200 ####[facility] [address] [place], [address] Platelets (Bld) [#/Vol] 203 10*3/uL Normal 150-450 [facility] Comment on above: Performed By: #### L 100.0100, L500.2500, L501.2300, L501.5200 ####[facility] [address] [place], [address] RBC (Bld) [#/Vol] 3.18 10*6/uL Low 4.6-6.2 [facility] Comment on above: Performed By: #### L 100.0100, L500.2500, L501.2300, L501.5200 ####[facility] [address] [place], [address] RDW SD 53.1 fl High 35.1-43.9 [facility] Comment on above: Performed By: #### L 100.0100, L500.2500, L501.2300, L501.5200 ####[facility] [address] [place], [address] WBC (Bld) [#/Vol] 6.9 10*3/uL Normal 4.4-11.0 [facility] Comment on above: Performed By: #### L 100.0100, L500.2500, L501.2300, L501.5200 ####[facility] [address] [place], [address] CVS/PACEMAKERon 04-09-2025 CVS/PACEMAKER Normal [facility] Chest 1 View (Portable)on Chest 1 View (Portable) Normal W [facility] Electrocardiogram reportOrde red By: Orly Mitchell on 04-09-2025 EKG study [facility] Work Phone: Magnesiumon 04-09-2025 Magnesium [Mass/Vol] 2.2 mg/dL Normal 1.5-2.2 [facility] Comment on above: Performed By: #### L 100.0100, L500.2500, L501.2300, L501.5200 ####[facility] [address] [place], [address] Magnesium measurement (mass/ volume)Ordered By: Nicola Roman on 04-09-2025 Magnesium (Unsp spec) [Mass/Vol] 2.2 mg/dL 1.5-2.2 [facility] Phosphoruson 04-09-2025 Phosphate [Mass/Vol] 3.9 mg/dL Normal 2.7-4.5 [facility] Comment on above: Performed By: #### L 100.0100, L500.2500, L501.2300, L501.5200 ####[facility] [address] [place], [address] Basic Metabolic Profile (BMP )on 04-08-2025 BUN/CRE 33.8 RATIO High 10-20 [facility] Comment on above: Performed By: #### L 500.2500, L100.0100 ####[facility] [address] [place], [address] Calcium [Mass/Vol] 8.6 mg/dL Normal 7.6-11.0 [facility] Comment on above: Performed By: #### L 500.2500, L100.0100 ####[facility] [address] [place], [address] Chloride [Moles/Vol] 95 mmol/L Low 98-108 [facility] Comment on above: Performed By: #### L 500.2500, L100.0100 ####[facility] [address] [place], [address] CO2 [Moles/Vol] 32.0 mmol/L Normal 21.0-32.0 [facility] Comment on above: Performed By: #### L 500.2500, L100.0100 ####[facility] [address] [place], [address] Creatinine [Mass/Vol] 1.91 mg/dL High 0.70-1.20 [facility] Comment on above: Performed By: #### L 500.2500, L100.0100 ####[facility] [address] [place], [address] ECRCL 27.84 ml/min Low 50-250 [facility] Comment on above: Performed By: #### L 500.2500, L100.0100 ####[facility] [address] [place], [address] GAP 11 Normal 5-15 [facility] Comment on above: Performed By: #### L 500.2500, L100.0100 ####[facility] [address] [place], [address] GFR/1.73 sq M.predicted among non-blacks MDRD (S/P/Bld) [Vol rate/Area] 35 mL/min/{1.73_m2} Low >60 [facility] Comment on above: Result Comment: mL/m in/1.73m2 CKD-EPI Creatinine Equation (2020) Performed By: #### L 500.2500, L100.0100 ####[facility] [address] [place], [address] Glucose [Mass/Vol] 240 mg/dL High 70-99 [facility] Comment on above: Performed By: #### L 500.2500, L100.0100 ####[facility] [address] [place], [address] Potassium [Moles/Vol] 4.0 mmol/L Normal 3.3-5.1 [facility] Comment on above: Performed By: #### L 500.2500, L100.0100 ####[facility] [address] [place], [address] Sodium [Moles/Vol] 138 mmol/L Normal 133-145 [facility] Comment on above: Performed By: #### L 500.2500, L100.0100 ####[facility] [address] [place], [address] Urea nitrogen [Mass/Vol] 65 mg/dL High 4-19 [facility] Comment on above: Performed By: #### L 500.2500, L100.0100 ####[facility] [address] [place], [address] Bedside Glucoseon 04-08-2025 FINGERSTICK GLU 216 mg/dL High 74-106 [facility] Comment on above: Result Comment: KODY GEMENT OF PATIENT CARE PER NURSING PROTOCOL Performed By: #### L 501.080 ####[facility] [address] [place], [address] FINGERSTICK GLU 270 mg/dL High 74-106 [facility] Comment on above: Result Comment: KODY GEMENT OF PATIENT CARE PER NURSING PROTOCOL Performed By: #### L 501.080 ####[facility] [address] [place], [address] FINGERSTICK GLU 199 mg/dL High 74-106 [facility] Comment on above: Result Comment: KODY GEMENT OF PATIENT CARE PER NURSING PROTOCOL Performed By: #### L 501.080 ####[facility] [address] [place], [address] CBC W/Diff, Automatedon 08-2 0-2024 Absolute Lymph 0.24 X10 3/uL Low 0.83-4.51 [facility] Comment on above: Performed By: #### L 500.2500, L100.0100 ####[facility] [address] [place], [address] Absolute Neut 6.3 X10 3/uL Normal 2.0-7.7 [facility] Comment on above: Performed By: #### L 500.2500, L100.0100 ####[facility] [address] [place], [address] Basophils/100 WBC (Bld) 0.0 % Normal 0-1 W [facility] Comment on above: Performed By: #### L 500.2500, L100.0100 ####[facility] [address] [place], [address] Eosinophils/100 WBC (Bld) 0.0 % Normal 0-5 [facility] Comment on above: Performed By: #### L 500.2500, L100.0100 ####[facility] [address] [place], [address] Erythrocyte distribution width (RBC) [Ratio] 17.2 % High 11.6-14.6 [facility] Comment on above: Performed By: #### L 500.2500, L100.0100 ####[facility] [address] [place], [address] Hematocrit (Bld) [Volume fraction] 27.0 % Low 40-54 [facility] Comment on above: Performed By: #### L 500.2500, L100.0100 ####[facility] [address] [place], [address] Hemoglobin (Bld) [Mass/Vol] 8.3 g/dL Low 13.0-16.5 [facility] Comment on above: Performed By: #### L 500.2500, L100.0100 ####[facility] [address] [place], [address] IG% 0.600 Normal 0.0-0.9 [facility] Comment on above: Result Comment: IG% - Immature Granulocytes (promyelocytes, myelocytes andmetamyelocytes) > 1% indicates that a LEFT SHIFT is Present. Performed By: #### L 500.2500, L100.0100 ####[facility] [address] [place], [address] Lymphocytes/100 WBC (Bld) 3.5 % Low 19-41 [facility] Comment on above: Performed By: #### L 500.2500, L100.0100 ####[facility] [address] [place], [address] MCH (RBC) [Entitic mass] 26.9 pg Low 27.0-32.0 [facility] Comment on above: Performed By: #### L 500.2500, L100.0100 ####[facility] [address] [place], [address] MCHC (RBC) [Mass/Vol] 30.7 g/dL Low 32-36 [facility] Comment on above: Performed By: #### L 500.2500, L100.0100 ####[facility] [address] [place], [address] MCV (RBC) [Entitic vol] 87.4 fL Normal 80-94 W [facility] Comment on above: Performed By: #### L 500.2500, L100.0100 ####[facility] [address] [place], [address] Monocytes/100 WBC (Bld) 4.5 % Normal 0-10 [facility] Comment on above: Performed By: #### L 500.2500, L100.0100 ####[facility] [address] [place], [address] Neutrophils/100 WBC (Bld) 91.4 % High 47-70 [facility] Comment on above: Performed By: #### L 500.2500, L100.0100 ####[facility] [address] [place], [address] Nucleated RBC (Bld) [#/Vol] 0 10*3/uL Normal 0-5 [facility] Comment on above: Performed By: #### L 500.2500, L100.0100 ####[facility] [address] [place], [address] Platelet mean volume (Bld) [Entitic vol] 10.7 fL Normal 6.2-12.0 [facility] Comment on above: Performed By: #### L 500.2500, L100.0100 ####[facility] [address] [place], [address] Platelets (Bld) [#/Vol] 192 10*3/uL Normal 150-450 [facility] Comment on above: Performed By: #### L 500.2500, L100.0100 ####[facility] [address] [place], [address] RBC (Bld) [#/Vol] 3.09 10*6/uL Low 4.6-6.2 [facility] Comment on above: Performed By: #### L 500.2500, L100.0100 ####[facility] [address] [place], [address] RDW SD 54.2 fl High 35.1-43.9 [facility] Comment on above: Performed By: #### L 500.2500, L100.0100 ####[facility] [address] [place], [address] WBC (Bld) [#/Vol] 6.9 10*3/uL Normal 4.4-11.0 [facility] Comment on above: Performed By: #### L 500.2500, L100.0100 ####[facility] [address] [place], [address] Consultation - Cardiologyon 04-08-2025 Consultation - Cardiology Normal [facility] Basic Metabolic Profile (BMP )on 04-07-2025 BUN/CRE 26.3 RATIO High 10-20 [facility] Comment on above: Performed By: #### L 501.2300, L500.2500 ####[facility] [address] [place], [address] Calcium [Mass/Vol] 8.8 mg/dL Normal 7.6-11.0 [facility] Comment on above: Performed By: #### L 501.2300, L500.2500 ####[facility] [address] [place], [address] Chloride [Moles/Vol] 96 mmol/L Low 98-108 [facility] Comment on above: Performed By: #### L 501.2300, L500.2500 ####[facility] [address] [place], [address] CO2 [Moles/Vol] 29.8 mmol/L Normal 21.0-32.0 [facility] Comment on above: Performed By: #### L 501.2300, L500.2500 ####[facility] [address] [place], [address] Creatinine [Mass/Vol] 2.21 mg/dL High 0.70-1.20 [facility] Comment on above: Performed By: #### L 501.2300, L500.2500 ####[facility] [address] [place], [address] ECRCL 24.06 ml/min Low 50-250 [facility] Comment on above: Performed By: #### L 501.2300, L500.2500 ####[facility] [address] [place], [address] GAP 11 Normal 5-15 [facility] Comment on above: Performed By: #### L 501.2300, L500.2500 ####[facility] [address] [place], [address] GFR/1.73 sq M.predicted among non-blacks MDRD (S/P/Bld) [Vol rate/Area] 29 mL/min/{1.73_m2} Low >60 [facility] Comment on above: Result Comment: mL/m in/1.73m2 CKD-EPI Creatinine Equation (2020) Performed By: #### L 501.2300, L500.2500 ####[facility] [address] [place], [address] Glucose [Mass/Vol] 171 mg/dL High 70-99 [facility] Comment on above: Performed By: #### L 501.2300, L500.2500 ####[facility] [address] [place], [address] Potassium [Moles/Vol] 4.6 mmol/L Normal 3.3-5.1 [facility] Comment on above: Performed By: #### L 501.2300, L500.2500 ####[facility] [address] [place], [address] Sodium [Moles/Vol] 137 mmol/L Normal 133-145 [facility] Comment on above: Performed By: #### L 501.2300, L500.2500 ####[facility] [address] [place], [address] Urea nitrogen [Mass/Vol] 58 mg/dL High -19 [facility] Comment on above: Performed By: #### L 501.2300, L500.2500 ####[facility] [address] [place], [address] Bedside Glucoseon 04-07-2025 FINGERSTICK GLU 272 mg/dL High 74-106 [facility] Comment on above: Result Comment: KODY GEMENT OF PATIENT CARE PER NURSING PROTOCOL Performed By: #### L 501.080 ####[facility] [address] [place], [address] FINGERSTICK GLU 249 mg/dL High 74-106 [facility] Comment on above: Result Comment: KODY GEMENT OF PATIENT CARE PER NURSING PROTOCOL Performed By: #### L 501.080 ####[facility] [address] [place], [address] FINGERSTICK GLU 303 mg/dL High 74-106 [facility] Comment on above: Result Comment: KODY GEMENT OF PATIENT CARE PER NURSING PROTOCOL Performed By: #### L 501.080 ####[facility] [address] [place], [address] FINGERSTICK GLU 162 mg/dL High 74-106 [facility] Comment on above: Result Comment: KODY GEMENT OF PATIENT CARE PER NURSING PROTOCOL Performed By: #### L 501.080 ####[facility] [address] [place], [address] CBC W/Diff, Automatedon 08- Absolute Lymph 0.20 X10 3/uL Low 0.83-4.51 [facility] Comment on above: Performed By: #### L 100.0100 ####[facility] [address] [place], [address] Absolute Neut 5.9 X10 3/uL Normal 2.0-7.7 [facility] Comment on above: Performed By: #### L 100.0100 ####[facility] [address] [place], [address] Basophils/100 WBC (Bld) 0.2 % Normal 0-1 W [facility] Comment on above: Performed By: #### L 100.0100 ####[facility] [address] [place], [address] Eosinophils/100 WBC (Bld) 0.0 % Normal 0-5 [facility] Comment on above: Performed By: #### L 100.0100 ####[facility] [address] [place], [address] Erythrocyte distribution width (RBC) [Ratio] 17.1 % High 11.6-14.6 [facility] Comment on above: Performed By: #### L 100.0100 ####[facility] [address] [place], [address] Hematocrit (Bld) [Volume fraction] 25.6 % Low 40-54 [facility] Comment on above: Performed By: #### L 100.0100 ####[facility] [address] [place], [address] Hemoglobin (Bld) [Mass/Vol] 8.0 g/dL Low 13.0-16.5 [facility] Comment on above: Performed By: #### L 100.0100 ####[facility] [address] [place], [address] IG% 1.400 High 0.0-0.9 [facility] Comment on above: Result Comment: IG% - Immature Granulocytes (promyelocytes, myelocytes andmetamyelocytes) > 1% indicates that a LEFT SHIFT is Present. Performed By: #### L 100.0100 ####[facility] [address] [place], [address] Lymphocytes/100 WBC (Bld) 3.1 % Low 19-41 [facility] Comment on above: Performed By: #### L 100.0100 ####[facility] [address] [place], [address] MCH (RBC) [Entitic mass] 27.0 pg Normal 27.0-32.0 [facility] Comment on above: Performed By: #### L 100.0100 ####[facility] [address] [place], [address] MCHC (RBC) [Mass/Vol] 31.3 g/dL Low 32-36 [facility] Comment on above: Performed By: #### L 100.0100 ####[facility] [address] [place], [address] MCV (RBC) [Entitic vol] 86.5 fL Normal 80-94 W [facility] Comment on above: Performed By: #### L 100.0100 ####[facility] [address] [place], [address] Monocytes/100 WBC (Bld) 2.5 % Normal 0-10 W [facility] Comment on above: Performed By: #### L 100.0100 ####[facility] [address] [place], [address] Neutrophils/100 WBC (Bld) 92.8 % High 47-70 [facility] Comment on above: Performed By: #### L 100.0100 ####[facility] [address] [place], [address] Nucleated RBC (Bld) [#/Vol] 0 10*3/uL Normal 0-5 [facility] Comment on above: Performed By: #### L 100.0100 ####[facility] [address] [place], [address] Platelet mean volume (Bld) [Entitic vol] 10.4 fL Normal 6.2-12.0 [facility] Comment on above: Performed By: #### L 100.0100 ####[facility] [address] [place], [address] Platelets (Bld) [#/Vol] 189 10*3/uL Normal 150-450 [facility] Comment on above: Performed By: #### L 100.0100 ####[facility] [address] [place], [address] RBC (Bld) [#/Vol] 2.96 10*6/uL Low 4.6-6.2 [facility] Comment on above: Performed By: #### L 100.0100 ####[facility] [address] [place], [address] RDW SD 53.1 fl High 35.1-43.9 [facility] Comment on above: Performed By: #### L 100.0100 ####[facility] [address] [place], [address] WBC (Bld) [#/Vol] 6.4 10*3/uL Normal 4.4-11.0 [facility] Comment on above: Performed By: #### L 100.0100 ####[facility] [address] [place], [address] Electrocardiogram reportOrde red By: Issa Looney on 04-07-2025 EKG study [facility] Work Phone: Phosphoruson 04-07-2025 Phosphate [Mass/Vol] 4.6 mg/dL High 2.7-4.5 [facility] Comment on above: Performed By: #### L 501.2300, L500.2500 ####[facility] [address] [place], [address] Bedside Glucoseon 04-06-2025 FINGERSTICK GLU 378 mg/dL High 74-106 [facility] Comment on above: Result Comment: KODY GEMENT OF PATIENT CARE PER NURSING PROTOCOL Performed By: #### L 501.080 ####[facility] [address] [place], [address] FINGERSTICK GLU 168 mg/dL High [address] [place] [address] Comment on above: Result Comment: KODY GEMENT OF PATIENT CARE PER NURSING PROTOCOL Performed By: #### L 501.080 ####[facility] [address] [place], [address] FINGERSTICK GLU 140 mg/dL High [facility]106 [facility] Comment on above: Result Comment: KODY GEMENT OF PATIENT CARE PER NURSING PROTOCOL Performed By: #### L 501.080 ####[facility] [address] [place], [address] FINGERSTICK GLU 116 mg/dL High [facility]106 [facility] Comment on above: Result Comment: KODY GEMENT OF PATIENT CARE PER NURSING PROTOCOL Performed By: #### L 501.080 ####[facility] [address] [place], [address] FINGERSTICK GLU 112 mg/dL High [facility]106 [facility] Comment on above: Result Comment: KODY GEMENT OF PATIENT CARE PER NURSING PROTOCOL Performed By: #### L 501.080 ####[facility] [address] [place], [address] Bilirubin, totalOrdered By: Nicola Madison on 04-06-2025 Bilirubin [Mass/Vol] 0.40 mg/dL 0.00-1.30 [facility] CBC W/Diff, Automatedon 03-20 Absolute Lymph 0.50 X10 3/uL Low 0.83-4.51 [facility] Comment on above: Performed By: #### L 100.0100 ####[facility] [address] [place], [address] Absolute Neut 6.4 X10 3/uL Normal 2.0-7.7 [facility] Comment on above: Performed By: #### L 100.0100 ####[facility] [address] [place], [address] Basophils/100 WBC (Bld) 0.5 % Normal 0-1 W [facility] Comment on above: Performed By: #### L 100.0100 ####[facility] [address] [place], [address] Eosinophils/100 WBC (Bld) 0.5 % Normal 0-5 [facility] Comment on above: Performed By: #### L 100.0100 ####[facility] [address] [place], [address] Erythrocyte distribution width (RBC) [Ratio] 16.8 % High 11.6-14.6 [facility] Comment on above: Performed By: #### L 100.0100 ####[facility] [address] [place], [address] Hematocrit (Bld) [Volume fraction] 26.3 % Low 40-54 [facility] Comment on above: Performed By: #### L 100.0100 ####[facility] [address] [place], [address] Hemoglobin (Bld) [Mass/Vol] 7.9 g/dL Low 13.0-16.5 [facility] Comment on above: Performed By: #### L 100.0100 ####[facility] [address] [place], [address] IG% 0.600 Normal 0.0-0.9 [facility] Comment on above: Result Comment: IG% - Immature Granulocytes (promyelocytes, myelocytes andmetamyelocytes) > 1% indicates that a LEFT SHIFT is Present. Performed By: #### L 100.0100 ####[facility] [address] [place], [address] Lymphocytes/100 WBC (Bld) 6.4 % Low 19-41 [facility] Comment on above: Performed By: #### L 100.0100 ####[facility] [address] [place], [address] MCH (RBC) [Entitic mass] 26.9 pg Low 27.0-32.0 [facility] Comment on above: Performed By: #### L 100.0100 ####[facility] [address] [place], [address] MCHC (RBC) [Mass/Vol] 30.0 g/dL Low 32-36 [facility] Comment on above: Performed By: #### L 100.0100 ####[facility] [address] [place], [address] MCV (RBC) [Entitic vol] 89.5 fL Normal 80-94 W [facility] Comment on above: Performed By: #### L 100.0100 ####[facility] [address] [place], [address] Monocytes/100 WBC (Bld) 10.1 % High 0-10 W [facility] Comment on above: Performed By: #### L 100.0100 ####[facility] [address] [place], [address] Neutrophils/100 WBC (Bld) 81.9 % High 47-70 [facility] Comment on above: Performed By: #### L 100.0100 ####[facility] [address] [place], [address] Nucleated RBC (Bld) [#/Vol] 0 10*3/uL Normal 0-5 [facility] Comment on above: Performed By: #### L 100.0100 ####[facility] [address] [place], [address] Platelet mean volume (Bld) [Entitic vol] 10.4 fL Normal 6.2-12.0 [facility] Comment on above: Performed By: #### L 100.0100 ####[facility] [address] [place], [address] Platelets (Bld) [#/Vol] 178 10*3/uL Normal 150-450 [facility] Comment on above: Performed By: #### L 100.0100 ####[facility] [address] [place], [address] RBC (Bld) [#/Vol] 2.94 10*6/uL Low 4.6-6.2 [facility] Comment on above: Performed By: #### L 100.0100 ####[facility] [address] [place], [address] RDW SD 54.7 fl High 35.1-43.9 [facility] Comment on above: Performed By: #### L 100.0100 ####[facility] [address] [place], [address] WBC (Bld) [#/Vol] 7.8 10*3/uL Normal 4.4-11.0 [facility] Comment on above: Performed By: #### L 100.0100 ####[facility] [address] [place], [address] Chest 1 View (Portable)on Chest 1 View (Portable) Normal W [facility] Comprehensive Metabolic Prof evita 04-06-2025 Albumin [Mass/Vol] 3.3 g/dL Low 3.4-4.8 [facility] Comment on above: Performed By: #### L 503.7505, L500.4050, L501.2300 ####[facility] [address] [place], [address] Albumin/Globulin [Mass ratio] 0.9 {ratio} Normal 0.9-2.4 [facility] Comment on above: Performed By: #### L 503.7505, L500.4050, L501.2300 ####[facility] [address] [place], [address] ALK PHOS 70 U/L Normal 40-129 [facility] Comment on above: Performed By: #### L 503.7505, L500.4050, L501.2300 ####[facility] [address] [place], [address] ALT [Catalytic activity/Vol] 13 U/L Normal <=46 [facility] Comment on above: Performed By: #### L 503.7505, L500.4050, L501.2300 ####[facility] [address] [place], [address] AST [Catalytic activity/Vol] 19 U/L Normal <=37 [facility] Comment on above: Performed By: #### L 503.7505, L500.4050, L501.2300 ####[facility] [address] [place], [address] Bilirubin [Mass/Vol] 0.40 mg/dL Normal 0.00-1.30 [facility] Comment on above: Performed By: #### L 503.7505, L500.4050, L501.2300 ####[facility] [address] [place], [address] BUN/CRE 22.8 RATIO High 10-20 [facility] Comment on above: Performed By: #### L 503.7505, L500.4050, L501.2300 ####[facility] [address] [place], [address] Calcium [Mass/Vol] 8.8 mg/dL Normal 7.6-11.0 [facility] Comment on above: Performed By: #### L 503.7505, L500.4050, L501.2300 ####[facility] [address] [place], [address] Chloride [Moles/Vol] 100 mmol/L Normal 98-108 [facility] Comment on above: Performed By: #### L 503.7505, L500.4050, L501.2300 ####[facility] [address] [place], [address] CO2 [Moles/Vol] 27.9 mmol/L Normal 21.0-32.0 [facility] Comment on above: Performed By: #### L 503.7505, L500.4050, L501.2300 ####[facility] [address] [place], [address] Creatinine [Mass/Vol] 2.52 mg/dL High 0.70-1.20 [facility] Comment on above: Performed By: #### L 503.7505, L500.4050, L501.2300 ####[facility] [address] [place], [address] ECRCL 22.79 ml/min Low 50-250 [facility] Comment on above: Performed By: #### L 503.7505, L500.4050, L501.2300 ####[facility] [address] [place], [address] GAP 10 Normal 5-15 [facility] Comment on above: Performed By: #### L 503.7505, L500.4050, L501.2300 ####[facility] [address] [place], [address] GFR/1.73 sq M.predicted among non-blacks MDRD (S/P/Bld) [Vol rate/Area] 25 mL/min/{1.73_m2} Low >60 [facility] Comment on above: Result Comment: mL/m in/1.73m2 CKD-EPI Creatinine Equation (2020) Performed By: #### L 503.7505, L500.4050, L501.2300 ####[facility] [address] [place], [address] Globulin (S) [Mass/Vol] 3.5 g/dL Normal 2.2-4.2 [facility] Comment on above: Performed By: #### L 503.7505, L500.4050, L501.2300 ####[facility] [address] [place], [address] Glucose [Mass/Vol] 102 mg/dL High 70-99 [facility] Comment on above: Performed By: #### L 503.7505, L500.4050, L501.2300 ####[facility] [address] [place], [address] Potassium [Moles/Vol] 4.7 mmol/L Normal 3.3-5.1 [facility] Comment on above: Performed By: #### L 503.7505, L500.4050, L501.2300 ####[facility] [address] [place], [address] Sodium [Moles/Vol] 138 mmol/L Normal 133-145 [facility] Comment on above: Performed By: #### L 503.7505, L500.4050, L501.2300 ####[facility] [address] [place], [address] T PROT 6.8 g/dL Normal 5.9-8.4 [facility] Comment on above: Performed By: #### L 503.7505, L500.4050, L501.2300 ####[facility] [address] [place], [address] Urea nitrogen [Mass/Vol] 58 mg/dL High 4-19 [facility] Comment on above: Performed By: #### L 503.7505, L500.4050, L501.2300 ####[facility] [address] [place], [address] Consultation - Nephrologyon 04-06-2025 Consultation - Nephrology Normal [facility] Kidney and Bladderon 025 Kidney and Bladder Normal [facility] Natriuretic peptide.B prohor girish N-Terminal [Mass/volume] in Serum or PlasmaOrdered By: Nicola Madison on 04-06-2025 Natriuretic peptide.B prohormone N-Terminal [Mass/Vol] 4038 pg/mL High <1800 [facility] No Panel InformationOrdered By: Nicola Madison on 04-06-2025 19 U/L <38 [facility] Phosphoruson 04-06-2025 Phosphate [Mass/Vol] 5.4 mg/dL High 2.7-4.5 [facility] Comment on above: Performed By: #### L 503.7505, L500.4050, L501.2300 ####[facility] [address] [place], [address] Pro- Brain NATRIURETIC PEPTI Adrienne 04-06-2025 Natriuretic peptide B (Bld) [Mass/Vol] 4038 pg/mL High <=1800 [facility] Comment on above: Result Comment: Hear t Failure Unlikely: < 300 pg/mLHeart Failure Likely< 50 Years: > 450 pg/mL50-75 Years: > 900 pg/mL>75 Years: > 1800 pg/mL Performed By: #### L 503.7505, L500.4050, L501.2300 ####[facility] [facility] [address] [place], [address] Protein+Creatinine Ratio,Uri neon 04-06-2025 PROT:CRE RATIO 1660 mg/g CRE High 0-200 [facility] Comment on above: Performed By: #### L 501.0900 ####[facility] [address] [place], [address] UR CREAT 32.10 mg/dL Low 39.00-259. 00 [facility] Comment on above: Performed By: #### L 501.0900 ####[facility] [address] [place], [address] RESPIRATORY PANEL MOLECULARo n 04-06-2025 RP PANEL Normal [facility] Comment on above: Performed By: #### M 100.638 ####[facility] [address] [place], [address] Random urine creatinine kingsley urement (mass/volume)Ordered By: Renae Sarabia on 04-06-2025 Creatinine Unsp time (U) [Mass/Vol] 32.10 mg/dL Low 39.00-259. 00 [facility] Respiratory pathogens detect ion panel by molecular detection methodOrdered By: Nicola Madison on 04-06-2025 Respiratory pathogens DNA and RNA panel BRYAN+probe (Resp) [facility] Serum globulin measurementOr dered By: Nicola Madison on 04-06-2025 Globulin (S) [Mass/Vol] 3.5 g/dL 2.2-4.2 W [facility] Serum or plasma alanine ortiz otransferase (ALT) measurementOrdered By: Nicola Madison on 04-06-2025 ALT [Catalytic activity/Vol] 13 U/L <47 [facility] Serum or plasma albumin kingsley urement (mass/volume)Ordered By: Nicola Madison on 04-06-2025 Albumin [Mass/Vol] 3.3 g/dL Low 3.4-4.8 [facility] Serum or plasma albumin/glob ulin mass ratioOrdered By: Nicola Madison on 04-06-2025 Albumin/Globulin [Mass ratio] 0.9 {ratio} 0.9-2.4 [facility] Serum or plasma alkaline roosevelt sphatase measurementOrdered By: Nicola Madison on 04-06-2025 ALP [Catalytic activity/Vol] 70 U/L 40-129 [facility] Total proteinOrdered By: Jacob Madison on 04-06-2025 Protein [Mass/Vol] 6.8 g/dL 5.9-8.4 [facility] Urine protein measurement (m ass/volume)Ordered By: Renae Sarabia on 04-06-2025 Protein (U) [Mass/Vol] 53.3 mg/dL High 0.0-12.0 [facility] Comment on above: Performed By: #### L 501.0900 ####[facility] [address] [place], [address] Urine protein/creatinine mas s ratioOrdered By: Renae Sarabia on 04-06-2025 Protein/Creatinine (U) [Mass ratio] 1660 mg/g CRE High 0-200 [facility] 12 Lead EKGon 04-05-2025 12 Lead EKG Normal [facility] Absolute lymphocyte countOrd ered By: Ld Hayes on 04-05-2025 Lymphocytes Auto (Unsp spec) [#/Vol] 0.64 10*3/uL Low 0.83-4.51 [facility] Anion gap in Serum or Plasma Ordered By: Ld Hayes on 04-05-2025 Anion gap [Moles/Vol] 11 mmol/L 5-15 [facility] Assessment of wrist artery p atency prior to arterial punctureOrdered By: Nicola Madison on 04-05-2025 Arterial patency Wrist artery --pre arterial puncture Positive [facility] Automated lymphocyte count a s percentage of total leukocytesOrdered By: Ld Hayes on 04-05-2025 Lymphocytes/100 WBC Auto (Unsp spec) 7.3 % Low 19-41 [facility] BUN/creatinine ratioOrdered By: Ld Hayes on 04-05-2025 Urea nitrogen/Creatinine [Mass ratio] 23.2 mg/mg High 10-20 [facility] Basic Metabolic Profile (BMP )on 04-05-2025 BUN/CRE 23.2 RATIO High 10-20 [facility] Comment on above: Performed By: #### L 100.0100, L500.2500 ####[facility] [address] [place], [address] Calcium [Mass/Vol] 8.8 mg/dL Normal 7.6-11.0 [facility] Comment on above: Performed By: #### L 100.0100, L500.2500 ####[facility] [address] [place], [address] Chloride [Moles/Vol] 97 mmol/L Low 98-108 [facility] Comment on above: Performed By: #### L 100.0100, L500.2500 ####[facility] [address] [place], [address] CO2 [Moles/Vol] 26.7 mmol/L Normal 21.0-32.0 [facility] Comment on above: Performed By: #### L 100.0100, L500.2500 ####[facility] [address] [place], [address] Creatinine [Mass/Vol] 2.57 mg/dL High 0.70-1.20 [facility] Comment on above: Performed By: #### L 100.0100, L500.2500 ####[facility] [address] [place], [address] ECRCL 22.62 ml/min Low 50-250 [facility] Comment on above: Performed By: #### L 100.0100, L500.2500 ####[facility] [address] [place], [address] GAP 11 Normal 5-15 [facility] Comment on above: Performed By: #### L 100.0100, L500.2500 ####[facility] [address] [place], [address] GFR/1.73 sq M.predicted among non-blacks MDRD (S/P/Bld) [Vol rate/Area] 25 mL/min/{1.73_m2} Low >60 [facility] Comment on above: Result Comment: mL/m in/1.73m2 CKD-EPI Creatinine Equation (2020) Performed By: #### L 100.0100, L500.2500 ####[facility] [address] [place], [address] Glucose [Mass/Vol] 164 mg/dL High 70-99 [facility] Comment on above: Performed By: #### L 100.0100, L500.2500 ####[facility] [address] [place], [address] Potassium [Moles/Vol] 5.8 mmol/L High 3.3-5.1 [facility] Comment on above: Result Comment: Hemo lysis present, Results??could be affected.?? Performed By: #### L 100.0100, L500.2500 ####[facility] [address] [place], [address] Sodium [Moles/Vol] 134 mmol/L Normal 133-145 [facility] Comment on above: Performed By: #### L 100.0100, L500.2500 ####[facility] [address] [place], [address] Urea nitrogen [Mass/Vol] 60 mg/dL High 4-19 [facility] Comment on above: Performed By: #### L 100.0100, L500.2500 ####[facility] [address] [place], [address] Basophil percentageOrdered B y: Ld Le on 04-05-2025 Basophils/100 WBC (Bld) 0.6 % 0-1 W [facility] Bedside Glucoseon 04-05-2025 FINGERSTICK GLU 76 mg/dL Normal 74-106 [facility] Comment on above: Result Comment: KODY GEMENT OF PATIENT CARE PER NURSING PROTOCOL Performed By: #### L 501.080 ####[facility] [address] [place], [address] FINGERSTICK GLU 147 mg/dL High 74-106 [facility] Comment on above: Result Comment: KODY GEMENT OF PATIENT CARE PER NURSING PROTOCOL Performed By: #### L 501.080 ####[facility] [address] [place], [address] Bilirubin Test strip Ql (U)O rdered By: Nicola Madison on 04-05-2025 Bilirubin Ql (U) Negative Negative [facility] Positive Normal [facility] Comment on above: Performed By: #### L 9000.0800 ####[facility] [address] [place], [address] Base excess Calc (Bld) [Moles/Vol] 7 mmol/L High -2 to +2 [facility] Comment on above: Performed By: #### L 9000.0800 ####[facility] [address] [place], [address] Blood Gas Type ART Normal [facility] Comment on above: Performed By: #### L 9000.0800 ####[facility] [address] [place], [address] CO2 [Moles/Vol] 34 mmol/L Normal [facility] Comment on above: Performed By: #### L 9000.0800 ####[facility] [address] [place], [address] FI02 6.0 Normal [facility] Comment on above: Performed By: #### L 9000.0800 ####[facility] [address] [place], [address] HCO3 (Bld) [Moles/Vol] 32.4 mmol/L High 22-26 W [facility] Comment on above: Performed By: #### L 9000.0800 ####[facility] [address] [place], [address] Mode Not entered Normal [facility] Comment on above: Performed By: #### L 9000.0800 ####[facility] [address] [place], [address] O2 Delivery Dev Cannula Normal [facility] Comment on above: Performed By: #### L 9000.0800 ####[facility] [address] [place], [address] pCO2 57.1 mmHg High 35-45 [facility] Comment on above: Performed By: #### L 9000.0800 ####[facility] [address] [place], [address] pH (Bld) 7.36 [pH] Normal 7.35-7.45 [facility] Comment on above: Performed By: #### L 9000.0800 ####[facility] [address] [place], [address] PO2 71 mmHG Low 75-100 [facility] Comment on above: Performed By: #### L 9000.0800 ####[facility] [address] [place], [address] SITE R Radial Normal [facility] Comment on above: Performed By: #### L 9000.0800 ####[facility] [address] [place], [address] SO2 93 Low 95-99 [facility] Comment on above: Performed By: #### L 9000.0800 ####[facility] [address] [place], [address] Blood base excess determinat ionOrdered By: Nicola Madison on 04-05-2025 Base excess Calc (BldV) [Moles/Vol] 7 mmol/L High -2-2 [facility] Blood bicarbonate measuremen tOrdered By: Nicola Madison on 04-05-2025 HCO3 (Bld) [Moles/Vol] 32.4 mmol/L High 22-26 W [facility] CBC W/Diff, Automatedon 03-20 Absolute Lymph 0.64 X10 3/uL Low 0.83-4.51 [facility] Comment on above: Performed By: #### L 100.0100, L500.2500 ####[facility] [address] [place], [address] Absolute Neut 7.0 X10 3/uL Normal 2.0-7.7 [facility] Comment on above: Performed By: #### L 100.0100, L500.2500 ####[facility] [address] [place], [address] Basophils/100 WBC (Bld) 0.6 % Normal 0-1 W [facility] Comment on above: Performed By: #### L 100.0100, L500.2500 ####[facility] [address] [place], [address] Eosinophils/100 WBC (Bld) 1.0 % Normal 0-5 [facility] Comment on above: Performed By: #### L 100.0100, L500.2500 ####[facility] [address] [place], [address] Erythrocyte distribution width (RBC) [Ratio] 17.1 % High 11.6-14.6 [facility] Comment on above: Performed By: #### L 100.0100, L500.2500 ####[facility] [address] [place], [address] Hematocrit (Bld) [Volume fraction] 29.0 % Low 40-54 [facility] Comment on above: Performed By: #### L 100.0100, L500.2500 ####[facility] [address] [place], [address] Hemoglobin (Bld) [Mass/Vol] 8.9 g/dL Low 13.0-16.5 [facility] Comment on above: Performed By: #### L 100.0100, L500.2500 ####[facility] [address] [place], [address] IG% 0.700 Normal 0.0-0.9 [facility] Comment on above: Result Comment: IG% - Immature Granulocytes (promyelocytes, myelocytes andmetamyelocytes) > 1% indicates that a LEFT SHIFT is Present. Performed By: #### L 100.0100, L500.2500 ####[facility] [address] [place], [address] Lymphocytes/100 WBC (Bld) 7.3 % Low 19-41 [facility] Comment on above: Performed By: #### L 100.0100, L500.2500 ####[facility] [address] [place], [address] MCH (RBC) [Entitic mass] 27.2 pg Normal 27.0-32.0 [facility] Comment on above: Performed By: #### L 100.0100, L500.2500 ####[facility] [address] [place], [address] MCHC (RBC) [Mass/Vol] 30.7 g/dL Low 32-36 [facility] Comment on above: Performed By: #### L 100.0100, L500.2500 ####[facility] [address] [place], [address] MCV (RBC) [Entitic vol] 88.7 fL Normal 80-94 W [facility] Comment on above: Performed By: #### L 100.0100, L500.2500 ####[facility] [address] [place], [address] Monocytes/100 WBC (Bld) 10.7 % High 0-10 W [facility] Comment on above: Performed By: #### L 100.0100, L500.2500 ####[facility] [address] [place], [address] Neutrophils/100 WBC (Bld) 79.7 % High 47-70 [facility] Comment on above: Performed By: #### L 100.0100, L500.2500 ####[facility] [address] [place], [address] Nucleated RBC (Bld) [#/Vol] 0.2 10*3/uL Normal 0-5 [facility] Comment on above: Performed By: #### L 100.0100, L500.2500 ####[facility] [address] [place], [address] Platelet mean volume (Bld) [Entitic vol] 11.1 fL Normal 6.2-12.0 [facility] Comment on above: Performed By: #### L 100.0100, L500.2500 ####[facility] [address] [place], [address] Platelets (Bld) [#/Vol] 226 10*3/uL Normal 150-450 [facility] Comment on above: Performed By: #### L 100.0100, L500.2500 ####[facility] [address] [place], [address] RBC (Bld) [#/Vol] 3.27 10*6/uL Low 4.6-6.2 [facility] Comment on above: Performed By: #### L 100.0100, L500.2500 ####[facility] [address] [place], [address] RDW SD 55.5 fl High 35.1-43.9 [facility] Comment on above: Performed By: #### L 100.0100, L500.2500 ####[facility] [address] [place], [address] WBC (Bld) [#/Vol] 8.7 10*3/uL Normal 4.4-11.0 [facility] Comment on above: Performed By: #### L 100.0100, L500.2500 ####[facility] [address] [place], [address] Carbon dioxide, total [Moles /volume] in Central venous bloodOrdered By: Ld Hayes on 04-05-2025 CO2 [Moles/Vol] 26.7 mmol/L 21.0-32.0 [facility] Chest PA and Lateralon 04-05 Chest PA and Lateral Normal [facility] Chloride assayOrdered By: Sky Hayes on 04-05-2025 Chloride [Moles/Vol] 97 mmol/L Low 98-108 [facility] Emergency Department Summary on 04-05-2025 Emergency Department Summary Normal [facility] Eosinophil percentageOrdered By: Ld Hayes on 04-05-2025 Eosinophils/100 WBC (Bld) 1.0 % 0-5 [facility] Erythrocyte distribution wid th ratioOrdered By: Ld Hayes on 04-05-2025 Erythrocyte distribution width (RBC) [Ratio] 17.1 % High 11.6-14.6 [facility] Erythrocyte distribution wid th standard deviationOrdered By: Ld Hayes on 04-05-2025 Erythrocyte distribution width (RBC) [Ratio] 55.5 fl High 35.1-43.9 [facility] Glomerular filtration rate ( GFR) estimation/1.73 sq m using serum, plasma, or whole bOrdered By: Ld Hayes on 04-05-2025 GFR/1.73 sq M.predicted among non-blacks MDRD (S/P/Bld) [Vol rate/Area] 25 mL/min/{1.73_m2} Low >60 [facility] Glucose measurement at bedsi deOrdered By: Ld Hayes on 04-05-2025 Glucose [Mass/Vol] 147 mg/dL High 74-106 [facility] H AND P Exam - Hospitaliston 04-05-2025 H&P Exam - Hospitalist Normal [facility] Hematocrit Auto (Bld) [Volum e fraction]Ordered By: Ld Hayes on 04-05-2025 Hematocrit (Bld) [Volume fraction] 29.0 % Low 40-54 [facility] Hemoglobin measurementOrdere d By: Ld Hayes on 04-05-2025 Hemoglobin (Bld) [Mass/Vol] 8.9 g/dL Low 13.0-16.5 [facility] Immature granulocytes/100 WB C Auto (Bld)Ordered By: Ld Hayes on 04-05-2025 Immature granulocytes/100 WBC (Bld) 0.700 % 0.0-0.9 [facility] Influenza virus A and B and SARS-CoV-2 (COVID-19) and Respiratory syncytial virus RNAOrdered By: Ld Hayes on 04-05-2025 SARS-CoV-2 (COVID-19) RNA BRYAN+probe Ql (Unsp spec) [facility] Ketones Test strip Ql (U)Ord ered By: Nicola Madison on 04-05-2025 Ketones Ql (U) Negative Negative [facility] L501.4021on 04-05-2025 Trop T High Sen 64 ng/L Invalid Interpretation Code <=22 [facility] Comment on above: Result Comment: Crit ical Result(s) Called AMYERS at: 1805 by:RIVERA??Results read back by same. Performed By: #### L 501.4021 ####[facility] [address] [place], [place], [address] M100.678on 04-05-2025 M100.678 SARS-CoV-2 (COVID 19 ) Negative INFLUENZA A Negative INFLUENZA B Negative RSV PCR Negative Normal [facility] Comment on above: Performed By: #### M 100.678 ####[facility] [address] [place], [place], [address] MCV (mean corpuscular volume ) determinationOrdered By: Ld Hayes on 04-05-2025 MCV (RBC) [Entitic vol] 88.7 fL 80-94 [facility] Magnesiumon 04-05-2025 Magnesium [Mass/Vol] 2.5 mg/dL High 1.5-2.2 [facility] Comment on above: Performed By: #### L 501.5200, L501.9520 ####[facility] [address] [place], [address] Magnesium measurement (mass/ volume)Ordered By: Nicola Madison on 04-05-2025 Magnesium (Unsp spec) [Mass/Vol] 2.5 mg/dL High 1.5-2.2 [facility] Mean corpuscular hemoglobin (MCH) determinationOrdered By: Ld Hayes on 04-05-2025 MCH (RBC) [Entitic mass] 27.2 pg 27.0-32.0 [facility] Measurement, pHOrdered By: Alex Madison on 04-05-2025 pH (Unsp spec) 7.36 [pH] 7.35-7.45 [facility] Monocyte percentageOrdered B y: Ld Hayes on 04-05-2025 Monocytes/100 WBC (Bld) 10.7 % High 0-10 W [facility] Mucus LM Ql (Urine sed)Order ed By: Nicola Madison on 04-05-2025 Mucus Ql (Urine sed) 0 SEEN /hpf [facility] Natriuretic peptide.B prohor girish N-Terminal [Mass/volume] in Serum or PlasmaOrdered By: Ld Hayes on 04-05-2025 Natriuretic peptide.B prohormone N-Terminal [Mass/Vol] 4003 pg/mL High <1800 [facility] Neutrophil percentageOrdered By: Ld Hayes on 04-05-2025 Neutrophils/100 WBC (Bld) 79.7 % High 47-70 [facility] Nitrite Test strip Ql (U)Ord ered By: Nicola Madison on 04-05-2025 Nitrite Ql (U) Negative Negative [facility] No Panel InformationOrdered By: Nicola Madison on 04-05-2025 ART [facility] R Radial [facility] Not entered [facility] Cannula [facility] Platelet countOrdered By: Sky Hayes on 04-05-2025 Platelets (Bld) [#/Vol] 226 10*3/uL 150-450 [facility] Potassium measurement (mass/ volume)Ordered By: Ld Hayes on 04-05-2025 Potassium (Unsp spec) [Mass/Vol] 5.8 mmol/L High 3.3-5.1 [facility] Pro- Brain NATRIURETIC PEPTI Adrienne 04-05-2025 Natriuretic peptide B (Bld) [Mass/Vol] 4003 pg/mL High <=1800 [facility] Comment on above: Result Comment: Hear t Failure Unlikely: < 300 pg/mLHeart Failure Likely< 50 Years: > 450 pg/mL50-75 Years: > 900 pg/mL>75 Years: > 1800 pg/mL Performed By: #### L 503.7505 ####[facility] [address] [place], [address] Protein Test strip Ql (U)Ord ered By: Nicola Madison on 04-05-2025 Protein Ql (U) 100 mg/dl High Negative [facility] RBC Auto (Bld) [#/Vol]Ordere d By: Ld Hayes on 04-05-2025 RBC (Bld) [#/Vol] 3.27 10*6/uL Low 4.6-6.2 [facility] Serum creatinine measurement (mass/volume)Ordered By: Ld Hayes on 04-05-2025 Creatinine [Mass/Vol] 2.57 mg/dL High 0.70-1.20 [facility] Serum glucose measurement (m ass/volume)Ordered By: Ld Hayes on 04-05-2025 Glucose [Mass/Vol] 164 mg/dL High 70-99 [facility] Serum or plasma calcium kings[place] urement (mass/volume)Ordered By: Ld Hayes on 04-05-2025 Calcium [Mass/Vol] 8.8 mg/dL 7.6-11.0 [facility] Serum or plasma urea nitroge n measurement (mass/volume)Ordered By: Ld Hayes on 04-05-2025 Urea nitrogen [Mass/Vol] 60 mg/dL High 4-19 [facility] Sodium levelOrdered By: Ld Hayes on 04-05-2025 Sodium [Moles/Vol] 134 mmol/L 133-145 [facility] Squamous epithelial cells de tection in urine sediment by light microscopyOrdered By: Nicola Madison on 04-05-2025 Epithelial cells.squamous LM Ql (Urine sed) 0-5 SEEN /hpf 0-5 [facility] TSH DL <= 0.005 mIU/L QnOrde red By: Nicola Madison on 04-05-2025 TSH Qn 3.830 uIU/mL 0.300-4.20 0 [facility] Thyroid Stim Hormone (TSH)on 04-05-2025 TSH 3.830 uIU/mL Normal 0.300-4.20 0 [facility] Comment on above: Performed By: #### L 501.5200, L501.9520 ####[facility] [address] [place], [place], [address] Total carbon dioxide measure mentOrdered By: Nicola Madison on 04-05-2025 CO2 [Moles/Vol] 34 mmol/L [facility] Troponin T HS 2 HRon 025 Trop T High Sen 62 ng/L Invalid Interpretation Code <=22 [facility] Comment on above: Result Comment: Crit ical Result(s) Called LSPARR at:2002 by:RIVERA??Results read back by same. Performed By: #### L 499.0042 ####[facility] [address] [place], [place], [address] Troponin T HS 4 HRon 025 Trop T High Sen 60 ng/L Invalid Interpretation Code <=22 [facility] Comment on above: Result Comment: Crit ical Result(s) Called MIGUELINA OCHOA at: 2137 by:RIVERA??Results read back by same. Performed By: #### L 499.0043 ####[facility] [address] [place], [place], [address] Troponin T.cardiac [Mass/vol ume] in Serum or Plasma by High sensitivity methodOrdered By: Ld Hayes on 04-05-2025 Troponin T.cardiac High sensitivity method [Mass/Vol] 60 ng/L High <22 [facility] Troponin T.cardiac High sensitivity method [Mass/Vol] 62 ng/L High <22 [facility] Troponin T.cardiac High sensitivity method [Mass/Vol] 64 ng/L High <22 [facility] Urinalysis, Completeon 04-05 BACTERIA 2+ /hpf Normal None Seen [facility] Comment on above: Order Comment: CLEAN CATCH Performed By: #### L 400.0001 ####[facility] [address] [place], [address] EPI,SQUAMOUS 0-5 SEEN Normal 0-5 [facility] Comment on above: Order Comment: CLEAN CATCH Performed By: #### L 400.0001 ####[facility] [address] [place], [address] RBC 0-5 SEEN Normal 0-5 [facility] Comment on above: Order Comment: CLEAN CATCH Performed By: #### L 400.0001 ####[facility] [address] [place], [address] WBC 5-10 SEEN Normal 0-5 [facility] Comment on above: Order Comment: CLEAN CATCH Performed By: #### L 400.0001 ####[facility] [address] [place], [address] Mucus Ql (Urine sed) 0 SEEN Normal [facility] Comment on above: Order Comment: CLEAN CATCH Performed By: #### L 400.0001 ####[facility] [address] [place], [address] Urine clarityOrdered By: Jacob Madison on 04-05-2025 Clarity (U) Clear Clear [facility] Urine color determinationOrd ered By: Nicola Madison on 04-05-2025 Color (U) Yellow Yellow [facility] Urine glucose detectionOrder ed By: Nicola Madison on 04-05-2025 Glucose Ql (U) Normal mg/dl Normal [facility] Urine leukocyte esterase det ection by dipstickOrdered By: Nicola Madison on 04-05-2025 Leukocyte esterase Test strip Ql (U) 500 /ul High Negative [facility] Urine pHOrdered By: Nicola stack on 04-05-2025 pH (U) 5.0 [pH] 5.0 - 8.0 [facility] Urine sediment bacteria coun t by microscopy (number/high power field)Ordered By: Nicola Madison on 04-05-2025 Bacteria LM.HPF (Urine sed) [#/Area] 2 /[HPF] None Seen [facility] Urine specific gravity measu rementOrdered By: Nicola Madison on 04-05-2025 Specific gravity (U) [Rel density] 1.015 1.002-1.03 0 [facility] Urine urobilinogen measureme ntOrdered By: Nicola Madison on 04-05-2025 Urobilinogen Ql (U) Normal mg/dl Normal [facility] White blood cell (WBC) count Ordered By: Ld Hayes on 04-05-2025 WBC (Bld) [#/Vol] 8.7 10*3/uL 4.4-11.0 [facility] White blood cell countOrdere d By: Nicola Madison on 04-05-2025 White blood cell count 5-10 SEEN /hpf 0-5 [facility] Absolute lymphocyte countOrd ered By: Leslie Arriaga on 04-02-2025 Lymphocytes Auto (Unsp spec) [#/Vol] 0.87 10*3/uL 0.83-4.51 [facility] Absolute neutrophil countOrd ered By: Leslie Arriaga on 04-02-2025 Neutrophils (Bld) [#/Vol] 6.9 10*3/uL 2.0-7.7 [facility] Anion gap in Serum or Plasma Ordered By: Leslie Arriaga on 04-02-2025 Anion gap [Moles/Vol] 10 mmol/L 5-15 [facility] Automated lymphocyte count a s percentage of total leukocytesOrdered By: Leslie Arriaga on 04-02-2025 Lymphocytes/100 WBC Auto (Unsp spec) 10.0 % Low 19-41 [facility] BUN/creatinine ratioOrdered By: Leslie Arriaga on 08-14-2025 Urea nitrogen/Creatinine [Mass ratio] 16.4 mg/mg 10- [facility] Basic Metabolic Profile (BMP )on 04-02-2025 BUN/CRE 16.4 RATIO Normal - [facility] Comment on above: Order Comment: Comme nts: Home Health to Draw TomorrowHome Health to Draw Tomorrow Performed By: #### L 100.0100, L503.7505, L500.2500 ####[facility] [address] [place], [address] Calcium [Mass/Vol] 9.2 mg/dL Normal 7.6-11.0 [facility] Comment on above: Order Comment: Comme nts: Home Health to Draw TomorrowHome Health to Draw Tomorrow Performed By: #### L 100.0100, L503.7505, L500.2500 ####[facility] [address] [place], [address] Chloride [Moles/Vol] 99 mmol/L Normal 98-108 [facility] Comment on above: Order Comment: Comme nts: Home Health to Draw TomorrowHome Health to Draw Tomorrow Performed By: #### L 100.0100, L503.7505, L500.2500 ####[facility] [address] [place], [address] CO2 [Moles/Vol] 27.8 mmol/L Normal 21.0-32.0 [facility] Comment on above: Order Comment: Comme nts: Home Health to Draw TomorrowHome Health to Draw Tomorrow Performed By: #### L 100.0100, L503.7505, L500.2500 ####[facility] [address] [place], [address] Creatinine [Mass/Vol] 2.13 mg/dL High 0.70-1.20 [facility] Comment on above: Order Comment: Comme nts: Home Health to Draw TomorrowHome Health to Draw Tomorrow Performed By: #### L 100.0100, L503.7505, L500.2500 ####[facility] [address] [place], [address] GAP 10 Normal 5-15 [facility] Comment on above: Order Comment: Comme nts: Home Health to Draw TomorrowHome Health to Draw Tomorrow Performed By: #### L 100.0100, L503.7505, L500.2500 ####[facility] [address] [place], [address] GFR/1.73 sq M.predicted among non-blacks MDRD (S/P/Bld) [Vol rate/Area] 31 mL/min/{1.73_m2} Low >60 [facility] Comment on above: Order Comment: Comme nts: Home Health to Draw TomorrowHome Health to Draw Tomorrow Result Comment: mL/m in/1.73m2 CKD-EPI Creatinine Equation (2020) Performed By: #### L 100.0100, L503.7505, L500.2500 ####[facility] [address] [place], [address] Glucose [Mass/Vol] 185 mg/dL High 70-99 [facility] Comment on above: Order Comment: Comme nts: Home Health to Draw TomorrowHome Health to Draw Tomorrow Performed By: #### L 100.0100, L503.7505, L500.2500 ####[facility] [address] [place], [address] Potassium [Moles/Vol] 5.6 mmol/L High 3.3-5.1 [facility] Comment on above: Order Comment: Comme nts: Home Health to Draw TomorrowHome Health to Draw Tomorrow Performed By: #### L 100.0100, L503.7505, L500.2500 ####[facility] [address] [place], [address] Sodium [Moles/Vol] 137 mmol/L Normal 133-145 [facility] Comment on above: Order Comment: Comme nts: Home Health to Draw TomorrowHome Health to Draw Tomorrow Performed By: #### L 100.0100, L503.7505, L500.2500 ####[facility] [address] [place], [address] Urea nitrogen [Mass/Vol] 35 mg/dL High 4-19 [facility] Comment on above: Order Comment: Comme nts: Home Health to Draw TomorrowHome Health to Draw Tomorrow Performed By: #### L 100.0100, L503.7505, L500.2500 ####[facility] [address] [place], [address] Basophil percentageOrdered B y: Leslie Arriaga on 04-02-2025 Basophils/100 WBC (Bld) 0.3 % 0-1 W [facility] CBC W/Diff, Automatedon 03-20 Absolute Lymph 0.87 X10 3/uL Normal 0.83-4.51 [facility] Comment on above: Order Comment: Comme nts: Home Health to Draw Tomorrow Performed By: #### L 100.0100, L503.7505, L500.2500 ####[facility] [address] [place], [address] Absolute Neut 6.9 X10 3/uL Normal 2.0-7.7 [facility] Comment on above: Order Comment: Comme nts: Home Health to Draw Tomorrow Performed By: #### L 100.0100, L503.7505, L500.2500 ####[facility] [address] [place], [address] Basophils/100 WBC (Bld) 0.3 % Normal 0-1 W [facility] Comment on above: Order Comment: Comme nts: Home Health to Draw Tomorrow Performed By: #### L 100.0100, L503.7505, L500.2500 ####[facility] [address] [place], [address] Eosinophils/100 WBC (Bld) 0.8 % Normal 0-5 [facility] Comment on above: Order Comment: Comme nts: Home Health to Draw Tomorrow Performed By: #### L 100.0100, L503.7505, L500.2500 ####[facility] [address] [place], [address] Erythrocyte distribution width (RBC) [Ratio] 17.1 % High 11.6-14.6 [facility] Comment on above: Order Comment: Comme nts: Home Health to Draw Tomorrow Performed By: #### L 100.0100, L503.7505, L500.2500 ####[facility] [address] [place], [address] Hematocrit (Bld) [Volume fraction] 30.6 % Low 40-54 [facility] Comment on above: Order Comment: Comme nts: Home Health to Draw Tomorrow Performed By: #### L 100.0100, L503.7505, L500.2500 ####[facility] [address] [place], [address] Hemoglobin (Bld) [Mass/Vol] 9.2 g/dL Low 13.0-16.5 [facility] Comment on above: Order Comment: Comme nts: Home Health to Draw Tomorrow Performed By: #### L 100.0100, L503.7505, L500.2500 ####[facility] [address] [place], [address] IG% 0.600 Normal 0.0-0.9 [facility] Comment on above: Order Comment: Comme nts: Home Health to Draw Tomorrow Result Comment: IG% - Immature Granulocytes (promyelocytes, myelocytes andmetamyelocytes) > 1% indicates that a LEFT SHIFT is Present. Performed By: #### L 100.0100, L503.7505, L500.2500 ####[facility] [address] [place], [address] Lymphocytes/100 WBC (Bld) 10.0 % Low 19-41 [facility] Comment on above: Order Comment: Comme nts: Home Health to Draw Tomorrow Performed By: #### L 100.0100, L503.7505, L500.2500 ####[facility] [address] [place], [address] MCH (RBC) [Entitic mass] 26.8 pg Low 27.0-32.0 [facility] Comment on above: Order Comment: Comme nts: Home Health to Draw Tomorrow Performed By: #### L 100.0100, L503.7505, L500.2500 ####[facility] [address] [place], [address] MCHC (RBC) [Mass/Vol] 30.1 g/dL Low 32-36 [facility] Comment on above: Order Comment: Comme nts: Home Health to Draw Tomorrow Performed By: #### L 100.0100, L503.7505, L500.2500 ####[facility] [address] [place], [address] MCV (RBC) [Entitic vol] 89.2 fL Normal 80-94 W [facility] Comment on above: Order Comment: Comme nts: Home Health to Draw Tomorrow Performed By: #### L 100.0100, L503.7505, L500.2500 ####[facility] [address] [place], [address] Monocytes/100 WBC (Bld) 8.9 % Normal 0-10 W [facility] Comment on above: Order Comment: Comme nts: Home Health to Draw Tomorrow Performed By: #### L 100.0100, L503.7505, L500.2500 ####[facility] [address] [place], [address] Neutrophils/100 WBC (Bld) 79.4 % High 47-70 [facility] Comment on above: Order Comment: Comme nts: Home Health to Draw Tomorrow Performed By: #### L 100.0100, L503.7505, L500.2500 ####[facility] [address] [place], [address] Nucleated RBC (Bld) [#/Vol] 0 10*3/uL Normal 0-5 [facility] Comment on above: Order Comment: Comme nts: Home Health to Draw Tomorrow Performed By: #### L 100.0100, L503.7505, L500.2500 ####[facility] [address] [place], [address] Platelet mean volume (Bld) [Entitic vol] 10.6 fL Normal 6.2-12.0 [facility] Comment on above: Order Comment: Comme nts: Home Health to Draw Tomorrow Performed By: #### L 100.0100, L503.7505, L500.2500 ####[facility] [address] [place], [address] Platelets (Bld) [#/Vol] 210 10*3/uL Normal 150-450 [facility] Comment on above: Order Comment: Comme nts: Home Health to Draw Tomorrow Performed By: #### L 100.0100, L503.7505, L500.2500 ####[facility] [address] [place], [address] RBC (Bld) [#/Vol] 3.43 10*6/uL Low 4.6-6.2 [facility] Comment on above: Order Comment: Comme nts: Home Health to Draw Tomorrow Performed By: #### L 100.0100, L503.7505, L500.2500 ####[facility] [address] [place], [address] RDW SD 55.3 fl High 35.1-43.9 [facility] Comment on above: Order Comment: Comme nts: Home Health to Draw Tomorrow Performed By: #### L 100.0100, L503.7505, L500.2500 ####[facility] [address] [place], [address] WBC (Bld) [#/Vol] 8.7 10*3/uL Normal 4.4-11.0 [facility] Comment on above: Order Comment: Comme nts: Home Health to Draw Tomorrow Performed By: #### L 100.0100, L503.7505, L500.2500 ####[facility] [address] [place], [address] Carbon dioxide, total [Moles /volume] in Central venous bloodOrdered By: Leslie Arriaga on 04-02-2025 CO2 [Moles/Vol] 27.8 mmol/L 21.0-32.0 [facility] Chloride assayOrdered By: Linsey Arriaga on 04-02-2025 Chloride [Moles/Vol] 99 mmol/L 98-108 [facility] Eosinophil percentageOrdered By: Leslie Arriaga on 04-02-2025 Eosinophils/100 WBC (Bld) 0.8 % 0-5 [facility] Erythrocyte distribution wid th ratioOrdered By: Leslie Arriaga on 04-02-2025 Erythrocyte distribution width (RBC) [Ratio] 17.1 % High 11.6-14.6 [facility] Erythrocyte distribution wid th standard deviationOrdered By: Leslie Arriaga on 04-02-2025 Erythrocyte distribution width (RBC) [Ratio] 55.3 fl High 35.1-43.9 [facility] Glomerular filtration rate ( GFR) estimation/1.73 sq m using serum, plasma, or whole bOrdered By: Leslie Arriaga on 04-02-2025 GFR/1.73 sq M.predicted among non-blacks MDRD (S/P/Bld) [Vol rate/Area] 31 mL/min/{1.73_m2} Low >60 [facility] Comment on above: mL/min/1.73m2 CKD-EP I Creatinine Equation (2020) Hematocrit Auto (Bld) [Volum e fraction]Ordered By: Leslie Arriaga on 04-02-2025 Hematocrit (Bld) [Volume fraction] 30.6 % Low 40-54 [facility] Hemoglobin measurementOrdere d By: Leslie Arriaga on 04-02-2025 Hemoglobin (Bld) [Mass/Vol] 9.2 g/dL Low 13.0-16.5 [facility] Immature granulocytes/100 WB C Auto (Bld)Ordered By: Leslie Arriaga on 04-02-2025 Immature granulocytes/100 WBC (Bld) 0.600 % 0.0-0.9 [facility] Comment on above: IG% - Immature Granu [...] (RBC) [Entitic mass] 26.8 pg Low 27.0-32.0 [facility] Mean corpuscular hemoglobin concentration (MCHC) determinationOrdered By: Leslie Arriaga on 04-02-2025 MCHC (RBC) [Mass/Vol] 30.1 g/dL Low 32-36 [facility] Mean platelet volume determi nationOrdered By: Leslie Arriaga on 04-02-2025 Platelet mean volume (Bld) [Entitic vol] 10.6 fL 6.2-12.0 [facility] Monocyte percentageOrdered B y: Leslie Arriaga on 04-02-2025 Monocytes/100 WBC (Bld) 8.9 % 0-10 W [facility] Natriuretic peptide.B prohor girish N-Terminal [Mass/volume] in Serum or PlasmaOrdered By: Leslie Arriaga on 04-02-2025 Natriuretic peptide.B prohormone N-Terminal [Mass/Vol] 2526 pg/mL High <1800 [facility] Comment on above: Heart Failure Unlike ly: < 300 pg/mLHeart Failure Likely< 50 Years: > 450 pg/mL50-75 Years: > 900 pg/mL>75 Years: > 1800 pg/mL Neutrophil percentageOrdered By: Leslie Arriaga on 04-02-2025 Neutrophils/100 WBC (Bld) 79.4 % High 47-70 [facility] Nucleated red blood cell per centageOrdered By: Leslie Arriaga on 04-02-2025 Nucleated RBC/100 WBC (Bld) [Ratio] 0 % 0-5 [facility] Platelet countOrdered By: Linsey Arriaga on 04-02-2025 Platelets (Bld) [#/Vol] 210 10*3/uL 150-450 [facility] Potassium measurement (mass/ volume)Ordered By: Leslie Arriaga on 04-02-2025 Potassium (Unsp spec) [Mass/Vol] 5.6 mmol/L High 3.3-5.1 [facility] Pro- Brain NATRIURETIC PEPTI Adrienne 04-02-2025 Natriuretic peptide B (Bld) [Mass/Vol] 2526 pg/mL High <=1800 [facility] Comment on above: Order Comment: Comme nts: Home Health to Draw Tomorrow Result Comment: Hear t Failure Unlikely: < 300 pg/mLHeart Failure Likely< 50 Years: > 450 pg/mL50-75 Years: > 900 pg/mL>75 Years: > 1800 pg/mL Performed By: #### L 100.0100, L503.7505, L500.2500 ####[facility] [address] [place], [address] RBC Auto (Bld) [#/Vol]Ordere d By: Leslie Arriaga on 04-02-2025 RBC (Bld) [#/Vol] 3.43 10*6/uL Low 4.6-6.2 [facility] Serum creatinine measurement (mass/volume)Ordered By: Leslie Arriaga on 04-02-2025 Creatinine [Mass/Vol] 2.13 mg/dL High 0.70-1.20 [facility] Serum glucose measurement (m ass/volume)Ordered By: Leslie Arriaga on 04-02-2025 Glucose [Mass/Vol] 185 mg/dL High 70-99 [facility] Serum or plasma calcium kings[place] urement (mass/volume)Ordered By: Leslie Arriaga on 04-02-2025 Calcium [Mass/Vol] 9.2 mg/dL 7.6-11.0 [facility] Serum or plasma urea nitroge n measurement (mass/volume)Ordered By: Leslie Arriaga on 04-02-2025 Urea nitrogen [Mass/Vol] 35 mg/dL High 4-19 [facility] Sodium levelOrdered By: Brian victoria Corina on 04-02-2025 Sodium [Moles/Vol] 137 mmol/L 133-145 [facility] White blood cell (WBC) count Ordered By: Leslie Arriaga on 04-02-2025 WBC (Bld) [#/Vol] 8.7 10*3/uL 4.4-11.0 [facility] Absolute lymphocyte countOrd ered By: Tonio Fajardo on 03-18-2025 Lymphocytes Auto (Unsp spec) [#/Vol] 0.88 10*3/uL 0.83-4.51 [facility] Absolute neutrophil countOrd ered By: Tonio Fajardo on 03-18-2025 Neutrophils (Bld) [#/Vol] 5.9 10*3/uL 2.0-7.7 [facility] Anion gap in Serum or Plasma Ordered By: Tonio Fajardo on 03-18-2025 Anion gap [Moles/Vol] 11 mmol/L 5-15 [facility] Automated lymphocyte count a s percentage of total leukocytesOrdered By: Tonio Fajardo on 03-18-2025 Lymphocytes/100 WBC Auto (Unsp spec) 11.2 % Low 19-41 [facility] BUN/creatinine ratioOrdered By: Tonio Fajardo on 03-18-2025 Urea nitrogen/Creatinine [Mass ratio] 14.8 mg/mg - [facility] Basic Metabolic Profile (BMP )on 03-18-2025 BUN/CRE 14.8 RATIO Normal 06-08 [facility] Comment on above: Performed By: #### L 500.2500, L100.0100 ####[facility] [address] [place], [address] Calcium [Mass/Vol] 9.5 mg/dL Normal 7.6-11.0 [facility] Comment on above: Performed By: #### L 500.2500, L100.0100 ####[facility] [address] [place], [address] Chloride [Moles/Vol] 99 mmol/L Normal 98-108 [facility] Comment on above: Performed By: #### L 500.2500, L100.0100 ####[facility] [address] [place], [address] CO2 [Moles/Vol] 26.7 mmol/L Normal 21.0-32.0 [facility] Comment on above: Performed By: #### L 500.2500, L100.0100 ####[facility] [address] [place], [address] Creatinine [Mass/Vol] 1.59 mg/dL High 0.70-1.20 [facility] Comment on above: Performed By: #### L 500.2500, L100.0100 ####[facility] [address] [place], [address] GAP 11 Normal 5-15 [facility] Comment on above: Performed By: #### L 500.2500, L100.0100 ####[facility] [address] [place], [address] GFR/1.73 sq M.predicted among non-blacks MDRD (S/P/Bld) [Vol rate/Area] 44 mL/min/{1.73_m2} Low >60 [facility] Comment on above: Result Comment: mL/m in/1.73m2 CKD-EPI Creatinine Equation (2020) Performed By: #### L 500.2500, L100.0100 ####[facility] [address] [place], [address] Glucose [Mass/Vol] 223 mg/dL High 70-99 [facility] Comment on above: Performed By: #### L 500.2500, L100.0100 ####[facility] [address] [place], [address] Potassium [Moles/Vol] 5.2 mmol/L High 3.3-5.1 [facility] Comment on above: Performed By: #### L 500.2500, L100.0100 ####[facility] [address] [place], [address] Sodium [Moles/Vol] 137 mmol/L Normal 133-145 [facility] Comment on above: Performed By: #### L 500.2500, L100.0100 ####[facility] [address] [place], [address] Urea nitrogen [Mass/Vol] 24 mg/dL High 4-19 [facility] Comment on above: Performed By: #### L 500.2500, L100.0100 ####[facility] [address] [place], [address] Basophil percentageOrdered B y: Tonio Fajardo on 03-18-2025 Basophils/100 WBC (Bld) 0.5 % 0-1 W [facility] CBC W/Diff, Automatedon 02-19 Absolute Lymph 0.88 X10 3/uL Normal 0.83-4.51 [facility] Comment on above: Performed By: #### L 500.2500, L100.0100 ####[facility] [address] [place], [address] Absolute Neut 5.9 X10 3/uL Normal 2.0-7.7 [facility] Comment on above: Performed By: #### L 500.2500, L100.0100 ####[facility] [address] [place], [address] Basophils/100 WBC (Bld) 0.5 % Normal 0-1 W [facility] Comment on above: Performed By: #### L 500.2500, L100.0100 ####[facility] [address] [place], [address] Eosinophils/100 WBC (Bld) 3.1 % Normal 0-5 [facility] Comment on above: Performed By: #### L 500.2500, L100.0100 ####[facility] [address] [place], [address] Erythrocyte distribution width (RBC) [Ratio] 16.4 % High 11.6-14.6 [facility] Comment on above: Performed By: #### L 500.2500, L100.0100 ####[facility] [address] [place], [address] Hematocrit (Bld) [Volume fraction] 32.6 % Low 40-54 [facility] Comment on above: Performed By: #### L 500.2500, L100.0100 ####[facility] [address] [place], [address] Hemoglobin (Bld) [Mass/Vol] 9.7 g/dL Low 13.0-16.5 [facility] Comment on above: Performed By: #### L 500.2500, L100.0100 ####[facility] [address] [place], [address] IG% 1.100 High 0.0-0.9 [facility] Comment on above: Result Comment: IG% - Immature Granulocytes (promyelocytes, myelocytes andmetamyelocytes) > 1% indicates that a LEFT SHIFT is Present. Performed By: #### L 500.2500, L100.0100 ####[facility] [address] [place], [address] Lymphocytes/100 WBC (Bld) 11.2 % Low 19-41 [facility] Comment on above: Performed By: #### L 500.2500, L100.0100 ####[facility] [address] [place], [address] MCH (RBC) [Entitic mass] 26.8 pg Low 27.0-32.0 [facility] Comment on above: Performed By: #### L 500.2500, L100.0100 ####[facility] [address] [place], [address] MCHC (RBC) [Mass/Vol] 29.8 g/dL Low 32-36 [facility] Comment on above: Performed By: #### L 500.2500, L100.0100 ####[facility] [address] [place], [address] MCV (RBC) [Entitic vol] 90.1 fL Normal 80-94 W [facility] Comment on above: Performed By: #### L 500.2500, L100.0100 ####[facility] [address] [place], [address] Monocytes/100 WBC (Bld) 9.4 % Normal 0-10 [facility] Comment on above: Performed By: #### L 500.2500, L100.0100 ####[facility] [address] [place], [address] Neutrophils/100 WBC (Bld) 74.7 % High 47-70 [facility] Comment on above: Performed By: #### L 500.2500, L100.0100 ####[facility] [address] [place], [address] Nucleated RBC (Bld) [#/Vol] 0 10*3/uL Normal 0-5 [facility] Comment on above: Performed By: #### L 500.2500, L100.0100 ####[facility] [address] [place], [address] Platelet mean volume (Bld) [Entitic vol] 10.4 fL Normal 6.2-12.0 [facility] Comment on above: Performed By: #### L 500.2500, L100.0100 ####[facility] [address] [place], [address] Platelets (Bld) [#/Vol] 252 10*3/uL Normal 150-450 [facility] Comment on above: Performed By: #### L 500.2500, L100.0100 ####[facility] [address] [place], [address] RBC (Bld) [#/Vol] 3.62 10*6/uL Low 4.6-6.2 [facility] Comment on above: Performed By: #### L 500.2500, L100.0100 ####[facility] [address] [place], [address] RDW SD 53.8 fl High 35.1-43.9 [facility] Comment on above: Performed By: #### L 500.2500, L100.0100 ####[facility] [address] [place], [address] WBC (Bld) [#/Vol] 7.9 10*3/uL Normal 4.4-11.0 [facility] Comment on above: Performed By: #### L 500.2500, L100.0100 ####[facility] [address] [place], [address] Carbon dioxide, total [Moles /volume] in Central venous bloodOrdered By: Tonio Fajardo on 03-18-2025 CO2 [Moles/Vol] 26.7 mmol/L 21.0-32.0 [facility] Chloride assayOrdered By: Min Fajardo on 03-18-2025 Chloride [Moles/Vol] 99 mmol/L 98-108 [facility] Eosinophil percentageOrdered By: Tonio Fajardo on 03-18-2025 Eosinophils/100 WBC (Bld) 3.1 % 0-5 [facility] Erythrocyte distribution wid th ratioOrdered By: Tonio Fajardo on 03-18-2025 Erythrocyte distribution width (RBC) [Ratio] 16.4 % High 11.6-14.6 [facility] Erythrocyte distribution wid th standard deviationOrdered By: Tonio Fajardo on 03-18-2025 Erythrocyte distribution width (RBC) [Ratio] 53.8 fl High 35.1-43.9 [facility] Glomerular filtration rate ( GFR) estimation/1.73 sq m using serum, plasma, or whole bOrdered By: Tonio Fajardo on 03-18-2025 GFR/1.73 sq M.predicted among non-blacks MDRD (S/P/Bld) [Vol rate/Area] 44 mL/min/{1.73_m2} Low >60 [facility] Comment on above: mL/min/1.73m2 CKD-EP I Creatinine Equation (2020) Hematocrit Auto (Bld) [Volum e fraction]Ordered By: Tonio Fajardo on 03-18-2025 Hematocrit (Bld) [Volume fraction] 32.6 % Low 40-54 [facility] Hemoglobin measurementOrdere d By: Tonio Fajardo on 03-18-2025 Hemoglobin (Bld) [Mass/Vol] 9.7 g/dL Low 13.0-16.5 [facility] Immature granulocytes/100 WB C Auto (Bld)Ordered By: Tonio Fajardo on 03-18-2025 Immature granulocytes/100 WBC (Bld) 1.100 % High 0.0-0.9 [facility] Comment on above: IG% - Immature Granu [...] (RBC) [Entitic mass] 26.8 pg Low 27.0-32.0 [facility] Mean corpuscular hemoglobin concentration (MCHC) determinationOrdered By: Tonio Fajardo 03-18-2025 MCHC (RBC) [Mass/Vol] 29.8 g/dL Low 32-36 [facility] Mean platelet volume determi nationOrdered By: Tonio Fajardo on 03-18-2025 Platelet mean volume (Bld) [Entitic vol] 10.4 fL 6.2-12.0 [facility] Monocyte percentageOrdered B y: Tonio Fajardo on 03-18-2025 Monocytes/100 WBC (Bld) 9.4 % 0-10 W [facility] Neutrophil percentageOrdered By: Tonio Fajardo on 03-18-2025 Neutrophils/100 WBC (Bld) 74.7 % High 47-70 [facility] Nucleated red blood cell per centageOrdered By: Tonio Fajardo on 03-18-2025 Nucleated RBC/100 WBC (Bld) [Ratio] 0 % 0-5 [facility] Platelet countOrdered By: Min Fajardo on 03-18-2025 Platelets (Bld) [#/Vol] 252 10*3/uL 150-450 [facility] Potassium measurement (mass/ volume)Ordered By: Tonio Fajardo on 03-18-2025 Potassium (Unsp spec) [Mass/Vol] 5.2 mmol/L High 3.3-5.1 [facility] RBC Auto (Bld) [#/Vol]Ordere d By: Tonio Fajardo on 03-18-2025 RBC (Bld) [#/Vol] 3.62 10*6/uL Low 4.6-6.2 [facility] Serum creatinine measurement (mass/volume)Ordered By: Tonio Fajardo on 03-18-2025 Creatinine [Mass/Vol] 1.59 mg/dL High 0.70-1.20 [facility] Serum glucose measurement (m ass/volume)Ordered By: Tonio Fajardo on 03-18-2025 Glucose [Mass/Vol] 223 mg/dL High 70-99 [facility] Serum or plasma calcium kingsley urement (mass/volume)Ordered By: Tonio Fajardo on 03-18-2025 Calcium [Mass/Vol] 9.5 mg/dL 7.6-11.0 [facility] Serum or plasma urea nitroge n measurement (mass/volume)Ordered By: Tonio Fajardo on 03-18-2025 Urea nitrogen [Mass/Vol] 24 mg/dL High - [facility] Sodium levelOrdered By: Tonio Fajardo on 03-18-2025 Sodium [Moles/Vol] 137 mmol/L 133-145 [facility] White blood cell (WBC) count Ordered By: Tonio Fajardo on 03-18-2025 WBC (Bld) [#/Vol] 7.9 10*3/uL 4.4-11.0 [facility] Cardiology Visit Reporton Cardiology Visit Report Normal W [facility] Emergency Department Summary on 03-15-2025 Emergency Department Summary Normal [facility] Basic Metabolic Profile (BMP )on 03-11-2025 BUN Normal 12-06 [facility] Comment on above: Result Comment: Canc elled via OM: Order cancelled - Patient discharged Performed By: #### L 500.2500, L100.0100 ####[facility] [address] [place], [address] BUN/CRE Normal 10- [facility] Comment on above: Result Comment: Canc elled via OM: Order cancelled - Patient discharged Performed By: #### L 500.2500, L100.0100 ####[facility] [address] [place], [address] Calcium Normal 7.6-11.0 [facility] Comment on above: Result Comment: Canc elled via OM: Order cancelled - Patient discharged Performed By: #### L 500.2500, L100.0100 ####[facility] [address] [place], [address] CL Normal 98-108 [facility] Comment on above: Result Comment: Canc elled via OM: Order cancelled - Patient discharged Performed By: #### L 500.2500, L100.0100 ####[facility] [address] [place], [address] CO2 Normal 21.0-32.0 [facility] Comment on above: Result Comment: Canc elled via OM: Order cancelled - Patient discharged Performed By: #### L 500.2500, L100.0100 ####[facility] [address] [place], [address] CREAT,SERUM Normal 0.70-1.20 [facility] Comment on above: Result Comment: Canc elled via OM: Order cancelled - Patient discharged Performed By: #### L 500.2500, L100.0100 ####[facility] [address] [place], [address] eGFR Normal >60 [facility] Comment on above: Result Comment: Canc elled via OM: Order cancelled - Patient discharged Performed By: #### L 500.2500, L100.0100 ####[facility] [address] [place], [address] GAP Normal 5-15 [facility] Comment on above: Result Comment: Canc elled via OM: Order cancelled - Patient discharged Performed By: #### L 500.2500, L100.0100 ####[facility] [address] [place], [address] GLU Normal 70-99 [facility] Comment on above: Result Comment: Canc elled via OM: Order cancelled - Patient discharged Performed By: #### L 500.2500, L100.0100 ####[facility] [address] [place], [address] Potassium Normal 3.3-5.1 [facility] Comment on above: Result Comment: Canc elled via OM: Order cancelled - Patient discharged Performed By: #### L 500.2500, L100.0100 ####[facility] [address] [place], [address] Basic Metabolic Profile (BMP) Normal 133-145 [facility] Comment on above: Result Comment: Canc elled via OM: Order cancelled - Patient discharged Performed By: #### L 500.2500, L100.0100 ####[facility] [address] [place], [address] CBC W/Diff, Automatedon 07-2 Absolute Neut Normal 2.0-7.7 [facility] Comment on above: Result Comment: Canc elled via OM: Order cancelled - Patient discharged Performed By: #### L 500.2500, L100.0100 ####[facility] [address] [place], [address] HCT Normal 40-54 [facility] Comment on above: Result Comment: Canc elled via OM: Order cancelled - Patient discharged Performed By: #### L 500.2500, L100.0100 ####[facility] [address] [place], [address] HGB Normal 13.0-16.5 [facility] Comment on above: Result Comment: Canc elled via OM: Order cancelled - Patient discharged Performed By: #### L 500.2500, L100.0100 ####[facility] [address] [place], [address] MCH Normal 27.0-32.0 [facility] Comment on above: Result Comment: Canc elled via OM: Order cancelled - Patient discharged Performed By: #### L 500.2500, L100.0100 ####[facility] [address] [place], [address] MCHC Normal 32-36 [facility] Comment on above: Result Comment: Canc elled via OM: Order cancelled - Patient discharged Performed By: #### L 500.2500, L100.0100 ####[facility] [address] [place], [address] MCV Normal 80-94 [facility] Comment on above: Result Comment: Canc elled via OM: Order cancelled - Patient discharged Performed By: #### L 500.2500, L100.0100 ####[facility] [address] [place], [address] NEUT% Normal 47-70 [facility] Comment on above: Result Comment: Canc elled via OM: Order cancelled - Patient discharged Performed By: #### L 500.2500, L100.0100 ####[facility] [address] [place], [address] PLT Normal 150-450 [facility] Comment on above: Result Comment: Canc elled via OM: Order cancelled - Patient discharged Performed By: #### L 500.2500, L100.0100 ####[facility] [address] [place], [address] RBC Normal 4.6-6.2 [facility] Comment on above: Result Comment: Canc elled via OM: Order cancelled - Patient discharged Performed By: #### L 500.2500, L100.0100 ####[facility] [address] [place], [address] RDW CV Normal 11.6-14.6 [facility] Comment on above: Result Comment: Canc elled via OM: Order cancelled - Patient discharged Performed By: #### L 500.2500, L100.0100 ####[facility] [address] [place], [address] RDW SD Normal 35.1-43.9 [facility] Comment on above: Result Comment: Canc elled via OM: Order cancelled - Patient discharged Performed By: #### L 500.2500, L100.0100 ####[facility] [address] [place], [address] WBC Normal 4.4-11.0 [facility] Comment on above: Result Comment: Canc elled via OM: Order cancelled - Patient discharged Performed By: #### L 500.2500, L100.0100 ####[facility] [address] [place], [address] Basic Metabolic Profile (BMP )on 03-10-2025 BUN Normal 4-19 [facility] Comment on above: Result Comment: Canc elled via OM: Order cancelled - Patient discharged Performed By: #### L 100.0100, L500.2500 ####[facility] [address] [place], [address] BUN/CRE Normal 10-20 [facility] Comment on above: Result Comment: Canc elled via OM: Order cancelled - Patient discharged Performed By: #### L 100.0100, L500.2500 ####[facility] [address] [place], [address] Calcium Normal 7.6-11.0 [facility] Comment on above: Result Comment: Canc elled via OM: Order cancelled - Patient discharged Performed By: #### L 100.0100, L500.2500 ####[facility] [address] [place], [address] CL Normal 98-108 [facility] Comment on above: Result Comment: Canc elled via OM: Order cancelled - Patient discharged Performed By: #### L 100.0100, L500.2500 ####[facility] [address] [place], [address] CO2 Normal 21.0-32.0 [facility] Comment on above: Result Comment: Canc elled via OM: Order cancelled - Patient discharged Performed By: #### L 100.0100, L500.2500 ####[facility] [address] [place], [address] CREAT,SERUM Normal 0.70-1.20 [facility] Comment on above: Result Comment: Canc elled via OM: Order cancelled - Patient discharged Performed By: #### L 100.0100, L500.2500 ####[facility] [address] [place], [address] eGFR Normal >60 [facility] Comment on above: Result Comment: Canc elled via OM: Order cancelled - Patient discharged Performed By: #### L 100.0100, L500.2500 ####[facility] [address] [place], [address] GAP Normal 5-15 [facility] Comment on above: Result Comment: Canc elled via OM: Order cancelled - Patient discharged Performed By: #### L 100.0100, L500.2500 ####[facility] [address] [place], [address] GLU Normal 70-99 [facility] Comment on above: Result Comment: Canc elled via OM: Order cancelled - Patient discharged Performed By: #### L 100.0100, L500.2500 ####[facility] [address] [place], [address] Potassium Normal 3.3-5.1 [facility] Comment on above: Result Comment: Canc elled via OM: Order cancelled - Patient discharged Performed By: #### L 100.0100, L500.2500 ####[facility] [address] [place], [address] Basic Metabolic Profile (BMP) Normal 133-145 [facility] Comment on above: Result Comment: Canc elled via OM: Order cancelled - Patient discharged Performed By: #### L 100.0100, L500.2500 ####[facility] [address] [place], [address] CBC W/Diff, Automatedon 07-2 Absolute Neut Normal 2.0-7.7 [facility] Comment on above: Result Comment: Canc elled via OM: Order cancelled - Patient discharged Performed By: #### L 100.0100, L500.2500 ####[facility] [address] [place], [address] HCT Normal 40-54 [facility] Comment on above: Result Comment: Canc elled via OM: Order cancelled - Patient discharged Performed By: #### L 100.0100, L500.2500 ####[facility] [address] [place], [address] HGB Normal 13.0-16.5 [facility] Comment on above: Result Comment: Canc elled via OM: Order cancelled - Patient discharged Performed By: #### L 100.0100, L500.2500 ####[facility] [address] [place], [address] MCH Normal 27.0-32.0 [facility] Comment on above: Result Comment: Canc elled via OM: Order cancelled - Patient discharged Performed By: #### L 100.0100, L500.2500 ####[facility] [address] [place], [address] MCHC Normal 32-36 [facility] Comment on above: Result Comment: Canc elled via OM: Order cancelled - Patient discharged Performed By: #### L 100.0100, L500.2500 ####[facility] [address] [place], [address] MCV Normal 80-94 [facility] Comment on above: Result Comment: Canc elled via OM: Order cancelled - Patient discharged Performed By: #### L 100.0100, L500.2500 ####[facility] [address] [place], [address] NEUT% Normal 47-70 [facility] Comment on above: Result Comment: Canc elled via OM: Order cancelled - Patient discharged Performed By: #### L 100.0100, L500.2500 ####[facility] [address] [place], [address] PLT Normal 150-450 [facility] Comment on above: Result Comment: Canc elled via OM: Order cancelled - Patient discharged Performed By: #### L 100.0100, L500.2500 ####[facility] [address] [place], [address] RBC Normal 4.6-6.2 [facility] Comment on above: Result Comment: Canc elled via OM: Order cancelled - Patient discharged Performed By: #### L 100.0100, L500.2500 ####[facility] [address] [place], [address] RDW CV Normal 11.6-14.6 [facility] Comment on above: Result Comment: Canc elled via OM: Order cancelled - Patient discharged Performed By: #### L 100.0100, L500.2500 ####[facility] [address] [place], [address] RDW SD Normal 35.1-43.9 [facility] Comment on above: Result Comment: Canc elled via OM: Order cancelled - Patient discharged Performed By: #### L 100.0100, L500.2500 ####[facility] [address] [place], [address] WBC Normal 4.4-11.0 [facility] Comment on above: Result Comment: Canc elled via OM: Order cancelled - Patient discharged Performed By: #### L 100.0100, L500.2500 ####[facility] [address] [place], [address] Absolute lymphocyte countOrd ered By: Deric Lantigua on 03-09-2025 Lymphocytes Auto (Unsp spec) [#/Vol] 0.53 10*3/uL Low 0.83-4.51 [facility] Absolute neutrophil countOrd ered By: Deric Lantigua on 03-09-2025 Neutrophils (Bld) [#/Vol] 4.0 10*3/uL 2.0-7.7 [facility] Anion gap in Serum or Plasma Ordered By: Deric Lantigua on 03-09-2025 Anion gap [Moles/Vol] 10 mmol/L 5-15 [facility] Automated lymphocyte count a s percentage of total leukocytesOrdered By: Deric Lantigua on 03-09-2025 Lymphocytes/100 WBC Auto (Unsp spec) 9.7 % Low 19-41 [facility] BUN/creatinine ratioOrdered By: Deric Lantigua on 03-09-2025 Urea nitrogen/Creatinine [Mass ratio] 20.8 mg/mg High 10-20 [facility] Basic Metabolic Profile (BMP )on 03-09-2025 BUN/CRE 20.8 RATIO High 10-20 [facility] Comment on above: Performed By: #### L 100.0100, L500.2500 ####[facility] [address] [place], [address] Calcium [Mass/Vol] 9.0 mg/dL Normal 7.6-11.0 [facility] Comment on above: Performed By: #### L 100.0100, L500.2500 ####[facility] [address] [place], [address] Chloride [Moles/Vol] 101 mmol/L Normal 98-108 [facility] Comment on above: Performed By: #### L 100.0100, L500.2500 ####[facility] [address] [place], [address] CO2 [Moles/Vol] 26.6 mmol/L Normal 21.0-32.0 [facility] Comment on above: Performed By: #### L 100.0100, L500.2500 ####[facility] [address] [place], [address] Creatinine [Mass/Vol] 2.41 mg/dL High 0.70-1.20 [facility] Comment on above: Performed By: #### L 100.0100, L500.2500 ####[facility] [address] [place], [address] ECRCL 24.14 ml/min Low 50-250 [facility] Comment on above: Performed By: #### L 100.0100, L500.2500 ####[facility] [address] [place], [address] GAP 10 Normal 5-15 [facility] Comment on above: Performed By: #### L 100.0100, L500.2500 ####[facility] [address] [place], [address] GFR/1.73 sq M.predicted among non-blacks MDRD (S/P/Bld) [Vol rate/Area] 26 mL/min/{1.73_m2} Low >60 [facility] Comment on above: Result Comment: mL/m in/1.73m2 CKD-EPI Creatinine Equation (2020) Performed By: #### L 100.0100, L500.2500 ####[facility] [address] [place], [address] Glucose [Mass/Vol] 118 mg/dL High 70-99 [facility] Comment on above: Performed By: #### L 100.0100, L500.2500 ####[facility] [address] [place], [address] Potassium [Moles/Vol] 4.3 mmol/L Normal 3.3-5.1 [facility] Comment on above: Performed By: #### L 100.0100, L500.2500 ####[facility] [address] [place], [address] Sodium [Moles/Vol] 138 mmol/L Normal 133-145 [facility] Comment on above: Performed By: #### L 100.0100, L500.2500 ####[facility] [address] [place], [address] Urea nitrogen [Mass/Vol] 50 mg/dL High 4-19 [facility] Comment on above: Performed By: #### L 100.0100, L500.2500 ####[facility] [address] [place], [address] Basophil percentageOrdered B y: Deric Lantigua on 03-09-2025 Basophils/100 WBC (Bld) 0.2 % 0-1 W [facility] Bedside Glucoseon 03-09-2025 FINGERSTICK GLU 184 mg/dL High 74-106 [facility] Comment on above: Result Comment: KODY GEMENT OF PATIENT CARE PER NURSING PROTOCOL Performed By: #### L 501.080 ####[facility] [address] [place], [address] FINGERSTICK GLU 112 mg/dL High 74-106 [facility] Comment on above: Result Comment: KODY GEMENT OF PATIENT CARE PER NURSING PROTOCOL Performed By: #### L 501.080 ####[facility] [address] [place], [address] CBC W/Diff, Automatedon 02-18 Absolute Lymph 0.53 X10 3/uL Low 0.83-4.51 [facility] Comment on above: Performed By: #### L 100.0100, L500.2500 ####[facility] [address] [place], [address] Absolute Neut 4.0 X10 3/uL Normal 2.0-7.7 [facility] Comment on above: Performed By: #### L 100.0100, L500.2500 ####[facility] [address] [place], [address] Basophils/100 WBC (Bld) 0.2 % Normal 0-1 W [facility] Comment on above: Performed By: #### L 100.0100, L500.2500 ####[facility] [address] [place], [address] Eosinophils/100 WBC (Bld) 4.8 % Normal 0-5 [facility] Comment on above: Performed By: #### L 100.0100, L500.2500 ####[facility] [address] [place], [address] Erythrocyte distribution width (RBC) [Ratio] 16.3 % High 11.6-14.6 [facility] Comment on above: Performed By: #### L 100.0100, L500.2500 ####[facility] [address] [place], [address] Hematocrit (Bld) [Volume fraction] 29.6 % Low 40-54 [facility] Comment on above: Performed By: #### L 100.0100, L500.2500 ####[facility] [address] [place], [address] Hemoglobin (Bld) [Mass/Vol] 9.3 g/dL Low 13.0-16.5 [facility] Comment on above: Performed By: #### L 100.0100, L500.2500 ####[facility] [address] [place], [address] IG% 0.600 Normal 0.0-0.9 [facility] Comment on above: Result Comment: IG% - Immature Granulocytes (promyelocytes, myelocytes andmetamyelocytes) > 1% indicates that a LEFT SHIFT is Present. Performed By: #### L 100.0100, L500.2500 ####[facility] [address] [place], [address] Lymphocytes/100 WBC (Bld) 9.7 % Low 19-41 [facility] Comment on above: Performed By: #### L 100.0100, L500.2500 ####[facility] [address] [place], [address] MCH (RBC) [Entitic mass] 27.5 pg Normal 27.0-32.0 [facility] Comment on above: Performed By: #### L 100.0100, L500.2500 ####[facility] [address] [place], [address] MCHC (RBC) [Mass/Vol] 31.4 g/dL Low 32-36 [facility] Comment on above: Performed By: #### L 100.0100, L500.2500 ####[facility] [address] [place], [address] MCV (RBC) [Entitic vol] 87.6 fL Normal 80-94 W [facility] Comment on above: Performed By: #### L 100.0100, L500.2500 ####[facility] [address] [place], [address] Monocytes/100 WBC (Bld) 12.1 % High 0-10 W [facility] Comment on above: Performed By: #### L 100.0100, L500.2500 ####[facility] [address] [place], [address] Neutrophils/100 WBC (Bld) 72.6 % High 47-70 [facility] Comment on above: Performed By: #### L 100.0100, L500.2500 ####[facility] [address] [place], [address] Nucleated RBC (Bld) [#/Vol] 0 10*3/uL Normal 0-5 [facility] Comment on above: Performed By: #### L 100.0100, L500.2500 ####[facility] [address] [place], [address] Platelet mean volume (Bld) [Entitic vol] 10.0 fL Normal 6.2-12.0 [facility] Comment on above: Performed By: #### L 100.0100, L500.2500 ####[facility] [address] [place], [address] Platelets (Bld) [#/Vol] 162 10*3/uL Normal 150-450 [facility] Comment on above: Performed By: #### L 100.0100, L500.2500 ####[facility] [address] [place], [address] RBC (Bld) [#/Vol] 3.38 10*6/uL Low 4.6-6.2 [facility] Comment on above: Performed By: #### L 100.0100, L500.2500 ####[facility] [address] [place], [address] RDW SD 51.8 fl High 35.1-43.9 [facility] Comment on above: Performed By: #### L 100.0100, L500.2500 ####[facility] [address] [place], [address] WBC (Bld) [#/Vol] 5.5 10*3/uL Normal 4.4-11.0 [facility] Comment on above: Performed By: #### L 100.0100, L500.2500 ####[facility] [address] [place], [address] Carbon dioxide, total [Moles /volume] in Central venous bloodOrdered By: Deric Lantigua on 03-09-2025 CO2 [Moles/Vol] 26.6 mmol/L 21.0-32.0 [facility] Chloride assayOrdered By: Silvia Lantigua on 03-09-2025 Chloride [Moles/Vol] 101 mmol/L 98-108 [facility] Discharge Instructionon 02-18 Discharge Instruction Normal [facility] Eosinophil percentageOrdered By: Deric Lantigua on 03-09-2025 Eosinophils/100 WBC (Bld) 4.8 % 0-5 [facility] Erythrocyte distribution wid th ratioOrdered By: Deric Lantigua on 03-09-2025 Erythrocyte distribution width (RBC) [Ratio] 16.3 % High 11.6-14.6 [facility] Erythrocyte distribution wid th standard deviationOrdered By: Deric Lantigua on 03-09-2025 Erythrocyte distribution width (RBC) [Ratio] 51.8 fl High 35.1-43.9 [facility] Glomerular filtration rate ( GFR) estimation/1.73 sq m using serum, plasma, or whole bOrdered By: Deric Lantigua on 03-09-2025 GFR/1.73 sq M.predicted among non-blacks MDRD (S/P/Bld) [Vol rate/Area] 26 mL/min/{1.73_m2} Low >60 [facility] Comment on above: mL/min/1.73m2 CKD-EP I Creatinine Equation (2020) Glucose measurement at bedsi deOrdered By: Deric Lantigua on 03-09-2025 Glucose [Mass/Vol] 184 mg/dL High 74-106 [facility] Comment on above: MANAGEMENT OF PATIEN T CARE PER NURSING PROTOCOL Hematocrit Auto (Bld) [Volum e fraction]Ordered By: Deric Lantigua on 03-09-2025 Hematocrit (Bld) [Volume fraction] 29.6 % Low 40-54 [facility] Hemoglobin measurementOrdere d By: Deric Lantigua on 03-09-2025 Hemoglobin (Bld) [Mass/Vol] 9.3 g/dL Low 13.0-16.5 [facility] Immature granulocytes/100 WB C Auto (Bld)Ordered By: Deric Lantigua on 03-09-2025 Immature granulocytes/100 WBC (Bld) 0.600 % 0.0-0.9 [facility] Comment on above: IG% - Immature Granu locytes (promyelocytes, myelocytes and metamyelocytes) > 1% indicates that a LEFT SHIFT is Present. MCV (mean corpuscular volume ) determinationOrdered By: Deric Lantigua on 03-09-2025 MCV (RBC) [Entitic vol] 87.6 fL 80-94 [facility] Mean corpuscular hemoglobin (MCH) determinationOrdered By: Deric Lantigua on 03-09-2025 MCH (RBC) [Entitic mass] 27.5 pg 27.0-32.0 [facility] Mean corpuscular hemoglobin concentration (MCHC) determinationOrdered By: Deric Lantigua on 03-09-2025 MCHC (RBC) [Mass/Vol] 31.4 g/dL Low 32-36 [facility] Mean platelet volume determi nationOrdered By: Deric Lantigua on 03-09-2025 Platelet mean volume (Bld) [Entitic vol] 10.0 fL 6.2-12.0 [facility] Monocyte percentageOrdered B y: Deric Lantigua on 03-09-2025 Monocytes/100 WBC (Bld) 12.1 % High 0-10 W [facility] Neutrophil percentageOrdered By: Deric Lantigua on 03-09-2025 Neutrophils/100 WBC (Bld) 72.6 % High 47-70 [facility] Nucleated red blood cell per centageOrdered By: Deric Lantigua on 03-09-2025 Nucleated RBC/100 WBC (Bld) [Ratio] 0 % 0-5 [facility] Platelet countOrdered By: Silvia Lantigua on 03-09-2025 Platelets (Bld) [#/Vol] 162 10*3/uL 150-450 [facility] Potassium measurement (mass/ volume)Ordered By: Deric Lantigua on 03-09-2025 Potassium (Unsp spec) [Mass/Vol] 4.3 mmol/L 3.3-5.1 [facility] RBC Auto (Bld) [#/Vol]Ordere d By: Deric Lantigua on 03-09-2025 RBC (Bld) [#/Vol] 3.38 10*6/uL Low 4.6-6.2 [facility] Serum creatinine measurement (mass/volume)Ordered By: Deric Lantigua on 03-09-2025 Creatinine [Mass/Vol] 2.41 mg/dL High 0.70-1.20 [facility] Serum glucose measurement (m ass/volume)Ordered By: Deric Lantigua on 03-09-2025 Glucose [Mass/Vol] 118 mg/dL High 70-99 [facility] Serum or plasma calcium kingsley urement (mass/volume)Ordered By: Deric Lantigua on 03-09-2025 Calcium [Mass/Vol] 9.0 mg/dL 7.6-11.0 [facility] Serum or plasma urea nitroge n measurement (mass/volume)Ordered By: Deric Lantigua on 03-09-2025 Urea nitrogen [Mass/Vol] 50 mg/dL High 4-19 [facility] Sodium levelOrdered By: Mikki Lantigua on 03-09-2025 Sodium [Moles/Vol] 138 mmol/L 133-145 [facility] White blood cell (WBC) count Ordered By: Deric Lantigua on 03-09-2025 WBC (Bld) [#/Vol] 5.5 10*3/uL 4.4-11.0 [facility] Basic Metabolic Profile (BMP )on 03-08-2025 BUN/CRE 19.9 RATIO Normal 10-20 [facility] Comment on above: Performed By: #### L 500.2500 ####[facility] [address] [place], [address] Calcium [Mass/Vol] 8.8 mg/dL Normal 7.6-11.0 [facility] Comment on above: Performed By: #### L 500.2500 ####[facility] [address] [place], [address] Chloride [Moles/Vol] 99 mmol/L Normal 98-108 [facility] Comment on above: Performed By: #### L 500.2500 ####[facility] [address] [place], [address] CO2 [Moles/Vol] 27.0 mmol/L Normal 21.0-32.0 [facility] Comment on above: Performed By: #### L 500.2500 ####[facility] [address] [place], [address] Creatinine [Mass/Vol] 3.11 mg/dL High 0.70-1.20 [facility] Comment on above: Performed By: #### L 500.2500 ####[facility] [address] [place], [address] ECRCL 17.10 ml/min Low 50-250 [facility] Comment on above: Performed By: #### L 500.2500 ####[facility] [address] [place], [address] GAP 10 Normal 5-15 [facility] Comment on above: Performed By: #### L 500.2500 ####[facility] [address] [place], [address] GFR/1.73 sq M.predicted among non-blacks MDRD (S/P/Bld) [Vol rate/Area] 19 mL/min/{1.73_m2} Low >60 [facility] Comment on above: Result Comment: mL/m in/1.73m2 CKD-EPI Creatinine Equation (2020) Performed By: #### L 500.2500 ####[facility] [address] [place], [address] Glucose [Mass/Vol] 127 mg/dL High 70-99 [facility] Comment on above: Performed By: #### L 500.2500 ####[facility] [address] [place], [address] Potassium [Moles/Vol] 5.3 mmol/L High 3.3-5.1 [facility] Comment on above: Performed By: #### L 500.2500 ####[facility] [address] [place], [address] Sodium [Moles/Vol] 135 mmol/L Normal 133-145 [facility] Comment on above: Performed By: #### L 500.2500 ####[facility] [address] [place], [address] Urea nitrogen [Mass/Vol] 62 mg/dL High 4-19 [facility] Comment on above: Performed By: #### L 500.2500 ####[facility] [address] [place], [address] Bedside Glucoseon 03-08-2025 FINGERSTICK GLU 132 mg/dL High 74-106 [facility] Comment on above: Result Comment: KODY TAE OF PATIENT CARE PER NURSING PROTOCOL Performed By: #### L 501.080 ####[facility] [address] [place], [address] FINGERSTICK GLU 128 mg/dL High 74-106 [facility] Comment on above: Result Comment: KODY GEMENT OF PATIENT CARE PER NURSING PROTOCOL Performed By: #### L 501.080 ####[facility] [address] [place], [address] FINGERSTICK GLU 142 mg/dL High 74-106 [facility] Comment on above: Result Comment: KODY GEMENT OF PATIENT CARE PER NURSING PROTOCOL Performed By: #### L 501.080 ####[facility] [address] [place], [address] FINGERSTICK GLU 122 mg/dL High 74-106 [facility] Comment on above: Result Comment: KODY GEMENT OF PATIENT CARE PER NURSING PROTOCOL Performed By: #### L 501.080 ####[facility] [address] [place], [address] Magnesiumon 03-08-2025 Magnesium [Mass/Vol] 2.3 mg/dL High 1.5-2.2 [facility] Comment on above: Performed By: #### L 501.5200 ####[facility] [address] [place], [address] Magnesium measurement (mass/ volume)Ordered By: Nicola Madison on 03-08-2025 Magnesium (Unsp spec) [Mass/Vol] 2.3 mg/dL High 1.5-2.2 [facility] Potassiumon 03-08-2025 Potassium [Moles/Vol] 5.5 mmol/L High 3.3-5.1 [facility] Comment on above: Performed By: #### L 501.9430 ####[facility] [address] [place], [address] Basic Metabolic Profile (BMP )on 03-07-2025 BUN/CRE 18.2 RATIO Normal 10-20 [facility] Comment on above: Performed By: #### L 500.2500 ####[facility] [address] [place], [address] Calcium [Mass/Vol] 8.7 mg/dL Normal 7.6-11.0 [facility] Comment on above: Performed By: #### L 500.2500 ####[facility] [address] [place], [address] Chloride [Moles/Vol] 97 mmol/L Low 98-108 [facility] Comment on above: Performed By: #### L 500.2500 ####[facility] [address] [place], [address] CO2 [Moles/Vol] 26.3 mmol/L Normal 21.0-32.0 [facility] Comment on above: Performed By: #### L 500.2500 ####[facility] [address] [place], [address] Creatinine [Mass/Vol] 3.09 mg/dL High 0.70-1.20 [facility] Comment on above: Performed By: #### L 500.2500 ####[facility] [address] [place], [address] ECRCL 17.21 ml/min Low 50-250 [facility] Comment on above: Performed By: #### L 500.2500 ####[facility] [address] [place], [address] GAP 10 Normal 5-15 [facility] Comment on above: Performed By: #### L 500.2500 ####[facility] [address] [place], [address] GFR/1.73 sq M.predicted among non-blacks MDRD (S/P/Bld) [Vol rate/Area] 20 mL/min/{1.73_m2} Low >60 [facility] Comment on above: Result Comment: mL/m in/1.73m2 CKD-EPI Creatinine Equation (2020) Performed By: #### L 500.2500 ####[facility] [address] [place], [address] Glucose [Mass/Vol] 126 mg/dL High 70-99 [facility] Comment on above: Performed By: #### L 500.2500 ####[facility] [address] [place], [address] Potassium [Moles/Vol] 4.8 mmol/L Normal 3.3-5.1 [facility] Comment on above: Performed By: #### L 500.2500 ####[facility] [address] [place], [address] Sodium [Moles/Vol] 134 mmol/L Normal 133-145 [facility] Comment on above: Performed By: #### L 500.2500 ####[facility] [address] [place], [address] Urea nitrogen [Mass/Vol] 56 mg/dL High 4-19 [facility] Comment on above: Performed By: #### L 500.2500 ####[facility] [address] [place], [address] Bedside Glucoseon 03-07-2025 FINGERSTICK GLU 151 mg/dL High 74-106 [facility] Comment on above: Result Comment: KODY GEMENT OF PATIENT CARE PER NURSING PROTOCOL Performed By: #### L 501.080 ####[facility] [address] [place], [address] FINGERSTICK GLU 191 mg/dL High 74-106 [facility] Comment on above: Result Comment: KODY GEMENT OF PATIENT CARE PER NURSING PROTOCOL Performed By: #### L 501.080 ####[facility] [address] [place], [address] FINGERSTICK GLU 184 mg/dL High 74-106 [facility] Comment on above: Result Comment: KODY GEMENT OF PATIENT CARE PER NURSING PROTOCOL Performed By: #### L 501.080 ####[facility] [address] [place], [address] FINGERSTICK GLU 127 mg/dL High 74-106 [facility] Comment on above: Result Comment: KODY STRONG OF PATIENT CARE PER NURSING PROTOCOL Performed By: #### L 501.080 ####[facility] [address] [place], [address] Urine Cultureon 03-07-2025 [facility] Comments: On UA samp le of 03/04 Culture exhibits no growth. Normal [facility] Comment on above: Performed By: #### M 100.2200 ####[facility] [address] [place], [address] Basic Metabolic Profile (BMP )on 03-06-2025 BUN/CRE 17.8 RATIO Normal 10-20 [facility] Comment on above: Performed By: #### L 500.2500, L501.2300 ####[facility] [address] [place], [address] Calcium [Mass/Vol] 9.1 mg/dL Normal 7.6-11.0 [facility] Comment on above: Performed By: #### L 500.2500, L501.2300 ####[facility] [address] [place], [address] Chloride [Moles/Vol] 99 mmol/L Normal 98-108 [facility] Comment on above: Performed By: #### L 500.2500, L501.2300 ####[facility] [address] [place], [address] CO2 [Moles/Vol] 31.2 mmol/L Normal 21.0-32.0 [facility] Comment on above: Performed By: #### L 500.2500, L501.2300 ####[facility] [address] [place], [address] Creatinine [Mass/Vol] 2.23 mg/dL High 0.70-1.20 [facility] Comment on above: Performed By: #### L 500.2499, L5.0 ####[facility] [address] [place], [address] ECRCL 23.84 ml/min Low 50-250 [facility] Comment on above: Performed By: #### L 500.2499, L5.0 ####[facility] [address] [place], [address] GAP 8 Normal 5-15 [facility] Comment on above: Performed By: #### L 500.2499, L5.0 ####[facility] [address] [place], [address] GFR/1.73 sq M.predicted among non-blacks MDRD (S/P/Bld) [Vol rate/Area] 29 mL/min/{1.73_m2} Low >60 [facility] Comment on above: Result Comment: mL/m in/1.73m2 CKD-EPI Creatinine Equation (2020) Performed By: #### L 500.2499, L5.0 ####[facility] [address] [place], [address] Glucose [Mass/Vol] 118 mg/dL High 70-99 [facility] Comment on above: Performed By: #### L 500.2499, L5.0 ####[facility] [address] [place], [address] Potassium [Moles/Vol] 4.7 mmol/L Normal 3.3-5.1 [facility] Comment on above: Performed By: #### L 500.2500, L5.2300 ####[facility] [address] [place], [address] Sodium [Moles/Vol] 138 mmol/L Normal 133-145 [facility] Comment on above: Performed By: #### L 500.2500, L501.2300 ####[facility] [address] [place], [address] Urea nitrogen [Mass/Vol] 40 mg/dL High 4-19 [facility] Comment on above: Performed By: #### L 500.2500, L501.2300 ####[facility] [address] [place], [address] Bedside Glucoseon 03-06-2025 FINGERSTICK GLU 146 mg/dL High 74-106 [facility] Comment on above: Result Comment: KODY GEMENT OF PATIENT CARE PER NURSING PROTOCOL Performed By: #### L 501.080 ####[facility] [address] [place], [address] FINGERSTICK GLU 117 mg/dL High 74-106 [facility] Comment on above: Result Comment: KODY GEMENT OF PATIENT CARE PER NURSING PROTOCOL Performed By: #### L 501.080 ####[facility] [address] [place], [address] FINGERSTICK GLU 229 mg/dL High 74-106 [facility] Comment on above: Result Comment: KODY GEMENT OF PATIENT CARE PER NURSING PROTOCOL Performed By: #### L 501.080 ####[facility] [address] [place], [address] FINGERSTICK GLU 109 mg/dL High 74-106 [facility] Comment on above: Result Comment: KODY GEMENT OF PATIENT CARE PER NURSING PROTOCOL Performed By: #### L 501.080 ####[facility] [address] [place], [address] FINGERSTICK GLU 140 mg/dL High 74-106 [facility] Comment on above: Result Comment: KODY GEMENT OF PATIENT CARE PER NURSING PROTOCOL Performed By: #### L 501.080 ####[facility] [address] [place], [address] Consultation - Cardiologyon 03-06-2025 Consultation - Cardiology Normal [facility] Phosphoruson 03-06-2025 Phosphate [Mass/Vol] 3.9 mg/dL Normal 2.7-4.5 [facility] Comment on above: Performed By: #### L 500.2500, L501.2300 ####[facility] [address] [place], [address] Urine cultureOrdered By: Kavita Lantigua on 03-06-2025 Bacteria identified Cx Nom (U) Culture exhibits no growth. [facility] Bedside Glucoseon 03-05-2025 FINGERSTICK GLU 111 mg/dL High 74-106 [facility] Comment on above: Result Comment: KODY GEMENT OF PATIENT CARE PER NURSING PROTOCOL Performed By: #### L 501.080 ####[facility] [address] [place], [address] FINGERSTICK GLU 152 mg/dL High 74-106 [facility] Comment on above: Result Comment: KODY GEMENT OF PATIENT CARE PER NURSING PROTOCOL Performed By: #### L 501.080 ####[facility] [address] [place], [address] FINGERSTICK GLU 159 mg/dL High 74-106 [facility] Comment on above: Result Comment: KODY GEMENT OF PATIENT CARE PER NURSING PROTOCOL Performed By: #### L 501.080 ####[facility] [address] [place], [address] Bilirubin, totalOrdered By: Nicola Madison on 03-05-2025 Bilirubin [Mass/Vol] 0.46 mg/dL 0.00-1.30 [facility] CBC W/Diff, Automatedon 02-17 Absolute Lymph 0.72 X10 3/uL Low 0.83-4.51 [facility] Comment on above: Performed By: #### L 501.2300, L100.0100 ####[facility] [address] [place], [address] Absolute Neut 5.8 X10 3/uL Normal 2.0-7.7 [facility] Comment on above: Performed By: #### L 501.2300, L100.0100 ####[facility] [address] [place], [address] Basophils/100 WBC (Bld) 0.4 % Normal 0-1 W [facility] Comment on above: Performed By: #### L 501.2300, L100.0100 ####[facility] [address] [place], [address] Eosinophils/100 WBC (Bld) 2.0 % Normal 0-5 [facility] Comment on above: Performed By: #### L 501.2300, L100.0100 ####[facility] [address] [place], [address] Erythrocyte distribution width (RBC) [Ratio] 16.6 % High 11.6-14.6 [facility] Comment on above: Performed By: #### L 501.2300, L100.0100 ####[facility] [address] [place], [address] Hematocrit (Bld) [Volume fraction] 30.1 % Low 40-54 [facility] Comment on above: Performed By: #### L 501.2300, L100.0100 ####[facility] [address] [place], [address] Hemoglobin (Bld) [Mass/Vol] 9.3 g/dL Low 13.0-16.5 [facility] Comment on above: Performed By: #### L 501.2300, L100.0100 ####[facility] [address] [place], [address] IG% 0.300 Normal 0.0-0.9 [facility] Comment on above: Result Comment: IG% - Immature Granulocytes (promyelocytes, myelocytes andmetamyelocytes) > 1% indicates that a LEFT SHIFT is Present. Performed By: #### L 501.2300, L100.0100 ####[facility] [address] [place], [address] Lymphocytes/100 WBC (Bld) 9.5 % Low 19-41 [facility] Comment on above: Performed By: #### L 501.2300, L100.0100 ####[facility] [address] [place], [address] MCH (RBC) [Entitic mass] 27.0 pg Normal 27.0-32.0 [facility] Comment on above: Performed By: #### L 501.2300, L100.0100 ####[facility] [address] [place], [address] MCHC (RBC) [Mass/Vol] 30.9 g/dL Low 32-36 [facility] Comment on above: Performed By: #### L 501.2300, L100.0100 ####[facility] [address] [place], [address] MCV (RBC) [Entitic vol] 87.5 fL Normal 80-94 W [facility] Comment on above: Performed By: #### L 501.2300, L100.0100 ####[facility] [address] [place], [address] Monocytes/100 WBC (Bld) 11.4 % High 0-10 W [facility] Comment on above: Performed By: #### L 501.2300, L100.0100 ####[facility] [address] [place], [address] Neutrophils/100 WBC (Bld) 76.4 % High 47-70 [facility] Comment on above: Performed By: #### L 501.2300, L100.0100 ####[facility] [address] [place], [address] Nucleated RBC (Bld) [#/Vol] 0 10*3/uL Normal 0-5 [facility] Comment on above: Performed By: #### L 501.2300, L100.0100 ####[facility] [address] [place], [address] Platelet mean volume (Bld) [Entitic vol] 10.7 fL Normal 6.2-12.0 [facility] Comment on above: Performed By: #### L 501.2300, L100.0100 ####[facility] [address] [place], [address] Platelets (Bld) [#/Vol] 181 10*3/uL Normal 150-450 [facility] Comment on above: Performed By: #### L 501.2300, L100.0100 ####[facility] [address] [place], [address] RBC (Bld) [#/Vol] 3.44 10*6/uL Low 4.6-6.2 [facility] Comment on above: Performed By: #### L 501.2300, L100.0100 ####[facility] [address] [place], [address] RDW SD 52.8 fl High 35.1-43.9 [facility] Comment on above: Performed By: #### L 501.2300, L100.0100 ####[facility] [address] [place], [address] WBC (Bld) [#/Vol] 7.6 10*3/uL Normal 4.4-11.0 [facility] Comment on above: Performed By: #### L 501.2300, L100.0100 ####[facility] [address] [place], [address] Calculated very low density lipoprotein (VLDL) cholesterol measurementOrdered By: Nicola Madison on 03-05-2025 Calculated very low density lipoprotein (VLDL) cholesterol measurement 16 mg/dL 5-40 [facility] Chest 1 View (Portable)on Chest 1 View (Portable) Normal W [facility] Comprehensive Metabolic Prof ilon 03-05-2025 Albumin [Mass/Vol] 3.4 g/dL Normal 3.4-4.8 [facility] Comment on above: Performed By: #### L 500.4050, L500.4100, L503.7505 ####[facility] [address] [place], [address] Albumin/Globulin [Mass ratio] 0.9 {ratio} Normal 0.9-2.4 [facility] Comment on above: Performed By: #### L 500.4050, L500.4100, L503.7505 ####[facility] [address] [place], [address] ALK PHOS 75 U/L Normal 40-129 [facility] Comment on above: Performed By: #### L 500.4050, L500.4100, L503.7505 ####[facility] [address] [place], [address] ALT [Catalytic activity/Vol] 10 U/L Normal <=46 [facility] Comment on above: Performed By: #### L 500.4050, L500.4100, L503.7505 ####[facility] [address] [place], [address] AST [Catalytic activity/Vol] 15 U/L Normal <=37 [facility] Comment on above: Performed By: #### L 500.4050, L500.4100, L503.7505 ####[facility] [address] [place], [address] Bilirubin [Mass/Vol] 0.46 mg/dL Normal 0.00-1.30 [facility] Comment on above: Performed By: #### L 500.4050, L500.4100, L503.7505 ####[facility] [address] [place], [address] BUN/CRE 18.6 RATIO Normal 10-20 [facility] Comment on above: Performed By: #### L 500.4050, L500.4100, L503.7505 ####[facility] [address] [place], [address] Calcium [Mass/Vol] 9.1 mg/dL Normal 7.6-11.0 [facility] Comment on above: Performed By: #### L 500.4050, L500.4100, L503.7505 ####[facility] [address] [place], [address] Chloride [Moles/Vol] 101 mmol/L Normal 98-108 [facility] Comment on above: Performed By: #### L 500.4050, L500.4100, L503.7505 ####[facility] [address] [place], [address] CO2 [Moles/Vol] 27.2 mmol/L Normal 21.0-32.0 [facility] Comment on above: Performed By: #### L 500.4050, L500.4100, L503.7505 ####[facility] [address] [place], [address] Creatinine [Mass/Vol] 1.95 mg/dL High 0.70-1.20 [facility] Comment on above: Performed By: #### L 500.4050, L500.4100, L503.7505 ####[facility] [address] [place], [address] ECRCL 27.26 ml/min Low 50-250 [facility] Comment on above: Performed By: #### L 500.4050, L500.4100, L503.7505 ####[facility] [address] [place], [address] GAP 10 Normal 5-15 [facility] Comment on above: Performed By: #### L 500.4050, L500.4100, L503.7505 ####[facility] [address] [place], [address] GFR/1.73 sq M.predicted among non-blacks MDRD (S/P/Bld) [Vol rate/Area] 34 mL/min/{1.73_m2} Low >60 [facility] Comment on above: Result Comment: mL/m in/1.73m2 CKD-EPI Creatinine Equation (2020) Performed By: #### L 500.4050, L500.4100, L503.7505 ####[facility] [address] [place], [address] Globulin (S) [Mass/Vol] 3.9 g/dL Normal 2.2-4.2 [facility] Comment on above: Performed By: #### L 500.4050, L500.4100, L503.7505 ####[facility] [address] [place], [address] Glucose [Mass/Vol] 171 mg/dL High 70-99 [facility] Comment on above: Performed By: #### L 500.4050, L500.4100, L503.7505 ####[facility] [address] [place], [address] Potassium [Moles/Vol] 5.0 mmol/L Normal 3.3-5.1 [facility] Comment on above: Performed By: #### L 500.4050, L500.4100, L503.7505 ####[facility] [address] [place], [address] Sodium [Moles/Vol] 138 mmol/L Normal 133-145 [facility] Comment on above: Performed By: #### L 500.4050, L500.4100, L503.7505 ####[facility] [address] [place], [address] T PROT 7.3 g/dL Normal 5.9-8.4 [facility] Comment on above: Performed By: #### L 500.4050, L500.4100, L503.7505 ####[facility] [address] [place], [address] Urea nitrogen [Mass/Vol] 36 mg/dL High 4-19 [facility] Comment on above: Performed By: #### L 500.4050, L500.4100, L503.7505 ####[facility] [address] [place], [address] Echocardiogram study reportO rdered By: Marjorie Green on 03-05-2025 Study report [facility] [address] [place] [address] Echo Complete W/ Contrast 03/05/25 0941 MR#: [id number] Acct: [id number] Name: PEDRO HILLMAN Rep #:[id number] : 1945 80 From: Marjorie Green MD Attending Dr: Dr. eDric Lantigua MD Status: ADM IN Ordering Dr: [...] Dictated: 03/05/25 0941 Date Transcribed: 03/05/25 1152 Chef Saucier: Signed [facility] Work Phone: [phone] 03-05-2025 Natriuretic peptide B (Bld) [Mass/Vol] 4176 pg/mL High <=1800 [facility] Comment on above: Result Comment: Hear t Failure Unlikely: < 300 pg/mLHeart Failure Likely< 50 Years: > 450 pg/mL50-75 Years: > 900 pg/mL>75 Years: > 1800 pg/mL Performed By: #### L 500.4050, L500.4100, L526.5934 ####[facility] [address] [place], [address] LDL calc ser/plasOrdered By: Nicola Madison on 03-05-2025 Cholesterol in LDL [Mass/Vol] 63 mg/dL [facility] Comment on above: Valzdxoqjv=907-363 m g/dL & Higher Bzsv=946 mg/dL or greater Laboratory - Chemistry and C hemistry - challengeOrdered By: Nicola Madison on 03-05-2025 AST [Catalytic activity/Vol] 15 U/L <38 [facility] Lipid Profileon 03-05-2025 CHOL:HDL 3.04 Normal [facility] Comment on above: Performed By: #### L 500.4050, L500.4100, L503.7505 ####[facility] [address] [place], [address] Cholesterol [Mass/Vol] 117 mg/dL Normal <=200 [facility] Comment on above: Result Comment: Chol esterol level, Desirable <200 mg/dLBorderline high cholesterol 200-239 mg/dLHigh cholesterol >=240 mg/dLRecommendations of the NCEP Adult Treatment Panel for thefollowing risk-cutoff thresholds for the [place] Americanpopulation. Performed By: #### L 500.4050, L500.4100, L503.7505 ####[facility] [address] [place], [address] Cholesterol in HDL [Mass/Vol] 39 mg/dL Low [facility] Comment on above: Result Comment: Gia onal Cholesterol Education Program (NCEP) guidelines:<40 mg/dL: Low HDL-cholesterol (major risk factor for CHD)>= 60 mg/dL: High HDL-cholesterol (negative risk factor forCHD)HDL-cholesterol is affected by a number of factors, e.g.smoking, exercise, hormones, sex and age. Performed By: #### L 500.4050, L500.4100, L503.7505 ####[facility] [address] [place], [address] Cholesterol in LDL [Mass/Vol] 63 mg/dL Normal [facility] Comment on above: Result Comment: Bord bqkllm=248-425 mg/dL Higher Xzvi=466 mg/dL or greater Performed By: #### L 500.4050, L500.4100, L503.7505 ####[facility] [address] [place], [address] Cholesterol in VLDL [Mass/Vol] 16 mg/dL Normal 5-40 [facility] Comment on above: Performed By: #### L 500.4050, L500.4100, L503.7505 ####[facility] [address] [place], [address] Triglyceride [Mass/Vol] 79 mg/dL Normal [facility] Comment on above: Result Comment: The drugs N-Acetylcysteine and Metamizole may falselydepress this assay.Normal range: <150 mg/dLBorderline High: 150-199 mg/dLHigh: 200-499 mg/dLVery High: >500 mg/dL Performed By: #### L 500.4050, L500.4100, L503.7505 ####[facility] [address] [place], [address] Natriuretic peptide.B prohor girish N-Terminal [Mass/volume] in Serum or PlasmaOrdered By: Nicola Madison on 03-05-2025 Natriuretic peptide.B prohormone N-Terminal [Mass/Vol] 4176 pg/mL High <1800 [facility] Comment on above: Heart Failure Unlike ly: < 300 pg/mLHeart Failure Likely< 50 Years: > 450 pg/mL50-75 Years: > 900 pg/mL>75 Years: > 1800 pg/mL No Panel InformationOrdered By: Nicola Madison on 03-05-2025 15 U/L <38 [facility] Phosphoruson 03-05-2025 Phosphate [Mass/Vol] 3.3 mg/dL Normal 2.7-4.5 [facility] Comment on above: Performed By: #### L 501.2300, L100.0100 ####[facility] [address] [place], [address] Screening total cholesterol/ high density lipoprotein (HDL) cholesterol ratioOrdered By: Nicola Madison on 03-05-2025 Cholesterol.total/Choles terol in HDL [Mass ratio] 3.04 {ratio} [facility] Serum globulin measurementOr dered By: Nicola Madison on 03-05-2025 Globulin (S) [Mass/Vol] 3.9 g/dL 2.2-4.2 W [facility] Serum or plasma alanine ortiz otransferase (ALT) measurementOrdered By: Nicola Madison on 03-05-2025 ALT [Catalytic activity/Vol] 10 U/L <47 [facility] Serum or plasma albumin kingsley urement (mass/volume)Ordered By: Nicola Madison on 03-05-2025 Albumin [Mass/Vol] 3.4 g/dL 3.4-4.8 [facility] Serum or plasma albumin/glob ulin mass ratioOrdered By: Nicola Madison on 03-05-2025 Albumin/Globulin [Mass ratio] 0.9 {ratio} 0.9-2.4 [facility] Serum or plasma alkaline roosevelt sphatase measurementOrdered By: Nicola Madison on 03-05-2025 ALP [Catalytic activity/Vol] 75 U/L 40-129 [facility] Serum or plasma cholesterol in HDL measurement (mass/volume)Ordered By: Nicola Madison on 03-05-2025 Cholesterol in HDL [Mass/Vol] 39 mg/dL Low >40 [facility] Comment on above: National Cholesterol Education Program (NCEP) guidelines:<40 mg/dL: Low HDL-cholesterol (major risk factor for CHD)>= 60 mg/dL: High HDL-cholesterol (negative risk factor for CHD)HDL-cholesterol is affected by a number of factors, e.g. smoking, exercise, hormones, sex and age. Serum or plasma cholesterol measurement (mass/volume)Ordered By: Nicola Madison on 03-05-2025 Cholesterol [Mass/Vol] 117 mg/dL <201 [facility] Comment on above: Cholesterol level, D esirable <200 mg/dLBorderline high cholesterol 200-239 mg/dLHigh cholesterol >=240 mg/dLRecommendations of the NCEP Adult Treatment Panel for the following risk-cutoff thresholds for the [place] population. Total proteinOrdered By: Jacob Madison on 03-05-2025 Protein [Mass/Vol] 7.3 g/dL 5.9-8.4 [facility] Triglycerides measurementOrd ered By: Nicola Madison [...] (Unsp spec) [#/Vol] 0.77 10*3/uL Low 0.83-4.51 [facility] Absolute neutrophil countOrd ered By: Chris Ochoa on 03-04-2025 Neutrophils (Bld) [#/Vol] 6.0 10*3/uL 2.0-7.7 [facility] Anion gap in Serum or Plasma Ordered By: Chris Ochoa on 03-04-2025 Anion gap [Moles/Vol] 8 mmol/L 5-15 [facility] Automated lymphocyte count a s percentage of total leukocytesOrdered By: Chris Ochoa on 03-04-2025 Lymphocytes/100 WBC Auto (Unsp spec) 10.1 % Low 19-41 [facility] BUN/creatinine ratioOrdered By: Chris Ochoa on 03-04-2025 Urea nitrogen/Creatinine [Mass ratio] 19.7 mg/mg 10-20 [facility] Basic Metabolic Profile (BMP )on 03-04-2025 BUN/CRE 19.7 RATIO Normal - [facility] Comment on above: Performed By: #### L 100.0100, L503.7505, L501.4021, L500.2500 ####[facility] [address] [place], [address] Calcium [Mass/Vol] 9.3 mg/dL Normal 7.6-11.0 [facility] Comment on above: Performed By: #### L 100.0100, L503.7505, L501.4021, L500.2500 ####[facility] [address] [place], [address] Chloride [Moles/Vol] 102 mmol/L Normal 98-108 [facility] Comment on above: Performed By: #### L 100.0100, L503.7505, L501.4021, L500.2500 ####[facility] [address] [place], [address] CO2 [Moles/Vol] 28.6 mmol/L Normal 21.0-32.0 [facility] Comment on above: Performed By: #### L 100.0100, L503.7505, L501.4021, L500.2500 ####[facility] [address] [place], [address] Creatinine [Mass/Vol] 1.86 mg/dL High 0.70-1.20 [facility] Comment on above: Performed By: #### L 100.0100, L503.7505, L501.4021, L500.2500 ####[facility] [address] [place], [address] ECRCL 28.58 ml/min Low 50-250 [facility] Comment on above: Performed By: #### L 100.0100, L503.7505, L501.4021, L500.2500 ####[facility] [address] [place], [address] GAP 8 Normal 5-15 [facility] Comment on above: Performed By: #### L 100.0100, L503.7505, L501.4021, L500.2500 ####[facility] [address] [place], [address] GFR/1.73 sq M.predicted among non-blacks MDRD (S/P/Bld) [Vol rate/Area] 36 mL/min/{1.73_m2} Low >60 [facility] Comment on above: Result Comment: mL/m in/1.73m2 CKD-EPI Creatinine Equation (2020) Performed By: #### L 100.0100, L503.7505, L501.4021, L500.2500 ####[facility] [address] [place], [address] Glucose [Mass/Vol] 124 mg/dL High 70-99 [facility] Comment on above: Performed By: #### L 100.0100, L503.7505, L501.4021, L500.2500 ####[facility] [address] [place], [address] Potassium [Moles/Vol] 5.2 mmol/L High 3.3-5.1 [facility] Comment on above: Performed By: #### L 100.0100, L503.7505, L501.4021, L500.2500 ####[facility] [address] [place], [address] Sodium [Moles/Vol] 138 mmol/L Normal 133-145 [facility] Comment on above: Performed By: #### L 100.0100, L503.7505, L501.4021, L500.2500 ####[facility] [address] [place], [address] Urea nitrogen [Mass/Vol] 37 mg/dL High 4-19 [facility] Comment on above: Performed By: #### L 100.0100, L503.7505, L501.4021, L500.2500 ####[facility] [address] [place], [address] Basophil percentageOrdered B y: Chris Ochoa on 03-04-2025 Basophils/100 WBC (Bld) 0.4 % 0-1 W [facility] Bedside Glucoseon 03-04-2025 FINGERSTICK GLU 80 mg/dL Normal 74-106 [facility] Comment on above: Result Comment: KODY STRONG OF PATIENT CARE PER NURSING PROTOCOL Performed By: #### L 501.080 ####[facility] [address] [place], [address] Bilirubin Test strip Ql (U)O rdered By: Nicola Madison on 03-04-2025 Bilirubin Ql (U) Negative Negative [facility] CBC W/Diff, Automatedon 02-17 Absolute Lymph 0.77 X10 3/uL Low 0.83-4.51 [facility] Comment on above: Performed By: #### L 100.0100, L503.7505, L501.4021, L500.2500 ####[facility] [place] [address] [place], [address] Absolute Neut 6.0 X10 3/uL Normal 2.0-7.7 [facility] [place] Comment on above: Performed By: #### L 100.0100, L503.7505, L501.4021, L500.2500 ####[facility] [place] [address] [place], [address] Basophils/100 WBC (Bld) 0.4 % Normal 0-1 W [facility] [place] Comment on above: Performed By: #### L 100.0100, L503.7505, L501.4021, L500.2500 ####[facility] [place] [address] [place], [address] Eosinophils/100 WBC (Bld) 1.6 % Normal 0-5 [facility] [place] Comment on above: Performed By: #### L 100.0100, L503.7505, L501.4021, L500.2500 ####[facility] [place] [address] [place], [address] Erythrocyte distribution width (RBC) [Ratio] 16.5 % High 11.6-14.6 [facility] [place] Comment on above: Performed By: #### L 100.0100, L503.7505, L501.4021, L500.2500 ####[facility] [place] [address] [place], [address] Hematocrit (Bld) [Volume fraction] 33.4 % Low 40-54 [facility] [place] Comment on above: Performed By: #### L 100.0100, L503.7505, L501.4021, L500.2500 ####[facility] [place] [address] [place], [address] Hemoglobin (Bld) [Mass/Vol] 10.1 g/dL Low 13.0-16.5 [facility] [place] Comment on above: Performed By: #### L 100.0100, L503.7505, L501.4021, L500.2500 ####[facility] [address] [place], [address] IG% 0.700 Normal 0.0-0.9 [facility] Comment on above: Result Comment: IG% - Immature Granulocytes (promyelocytes, myelocytes andmetamyelocytes) > 1% indicates that a LEFT SHIFT is Present. Performed By: #### L 100.0100, L503.7505, L501.4021, L500.2500 ####[facility] [place] [address] [place], [address] Lymphocytes/100 WBC (Bld) 10.1 % Low 19-41 [facility] Comment on above: Performed By: #### L 100.0100, L503.7505, L501.4021, L500.2500 ####[facility] [place] [address] [place], [address] MCH (RBC) [Entitic mass] 27.0 pg Normal 27.0-32.0 [facility] [place] Comment on above: Performed By: #### L 100.0100, L503.7505, L501.4021, L500.2500 ####[facility] [address] [place], [address] MCHC (RBC) [Mass/Vol] 30.2 g/dL Low 32-36 [facility] Comment on above: Performed By: #### L 100.0100, L503.7505, L501.4021, L500.2500 ####[facility] [address] [place], [address] MCV (RBC) [Entitic vol] 89.3 fL Normal 80-94 W [facility] [place] Comment on above: Performed By: #### L 100.0100, L503.7505, L501.4021, L500.2500 ####[facility] [address] [place], [address] Monocytes/100 WBC (Bld) 9.1 % Normal 0-10 [facility] Comment on above: Performed By: #### L 100.0100, L503.7505, L501.4021, L500.2500 ####[facility] [place] [address] [place], [address] Neutrophils/100 WBC (Bld) 78.1 % High 47-70 [facility] Comment on above: Performed By: #### L 100.0100, L503.7505, L501.4021, L500.2500 ####[facility] [address] [place], [address] Nucleated RBC (Bld) [#/Vol] 0 10*3/uL Normal 0-5 [facility] Comment on above: Performed By: #### L 100.0100, L503.7505, L501.4021, L500.2500 ####[facility] [place] [address] [place], [address] Platelet mean volume (Bld) [Entitic vol] 10.2 fL Normal 6.2-12.0 [facility] [place] Comment on above: Performed By: #### L 100.0100, L503.7505, L501.4021, L500.2500 ####[facility] [place] [address] [place], [address] Platelets (Bld) [#/Vol] 189 10*3/uL Normal 150-450 [facility] Comment on above: Performed By: #### L 100.0100, L503.7505, L501.4021, L500.2500 ####[facility] [place] [address] [place], [address] RBC (Bld) [#/Vol] 3.74 10*6/uL Low 4.6-6.2 [facility] Comment on above: Performed By: #### L 100.0100, L503.7505, L501.4021, L500.2500 ####[facility] [address] [place], [address] RDW SD 54.2 fl High 35.1-43.9 [facility] [place] Comment on above: Performed By: #### L 100.0100, L503.7505, L501.4021, L500.2500 ####[facility] [address] [place], [address] WBC (Bld) [#/Vol] 7.6 10*3/uL Normal 4.4-11.0 [facility] Comment on above: Performed By: #### L 100.0100, L503.7505, L501.4021, L500.2500 ####[facility] [address] [place], [address] Carbon dioxide, total [Moles /volume] in Central venous bloodOrdered By: Chris Ochoa on 03-04-2025 CO2 [Moles/Vol] 28.6 mmol/L 21.0-32.0 [facility] Chest PA and Lateralon 03-04 Chest PA and Lateral Normal [facility] Chloride assayOrdered By: Chino Ochoa on 03-04-2025 Chloride [Moles/Vol] 102 mmol/L 98-108 [facility] Echo Complete W/ Contraston 03-04-2025 Echo Complete W/ Contrast Normal [facility] [place] Emergency Department Summary on 03-04-2025 Emergency Department Summary Normal [facility] Eosinophil percentageOrdered By: Chris Ochoa on 03-04-2025 Eosinophils/100 WBC (Bld) 1.6 % 0-5 [facility] Erythrocyte distribution wid th ratioOrdered By: Chris Ochoa on 03-04-2025 Erythrocyte distribution width (RBC) [Ratio] 16.5 % High 11.6-14.6 [facility] Erythrocyte distribution wid th standard deviationOrdered By: Chris Ochoa on 03-04-2025 Erythrocyte distribution width (RBC) [Ratio] 54.2 fl High 35.1-43.9 [facility] Glomerular filtration rate ( GFR) estimation/1.73 sq m using serum, plasma, or whole bOrdered By: Chris Ochoa on 03-04-2025 GFR/1.73 sq M.predicted among non-blacks MDRD (S/P/Bld) [Vol rate/Area] 36 mL/min/{1.73_m2} Low >60 [facility] Comment on above: mL/min/1.73m2 CKD-EP I Creatinine Equation (2020) H AND P Exam - [place] 03-04-2025 H&P Exam - Hospitalist Normal [facility] Hematocrit Auto (Bld) [Volum e fraction]Ordered By: Chris Ochoa on 03-04-2025 Hematocrit (Bld) [Volume fraction] 33.4 % Low 40-54 [facility] Hemoglobin A1con 03-04-2025 HbA1c (Bld) [Mass fraction] 6.3 % High <=5.6 [facility] Comment on above: Result Comment: Norm al < 5.7 % Prediabetic 5.7 - 6.4 % Diabetic >or= 6.5 % Please note range changes. Performed By: #### L 501.9900, L501.9572, L501.520 ####[facility] [address] [place], [address] Hemoglobin A1c percentageOrd ered By: Nicola Madison on 03-04-2025 HbA1c (Bld) [Mass fraction] 6.3 % High <5.7 [facility] Comment on above: Normal < 5.7 % Predi abetic 5.7 - 6.4 % Diabetic >or= 6.5 % Please note range changes. Hemoglobin measurementOrdere d By: Chris Ochoa on 03-04-2025 Hemoglobin (Bld) [Mass/Vol] 10.1 g/dL Low 13.0-16.5 [facility] Immature granulocytes/100 WB C Auto (Bld)Ordered By: Chris Ochoa on 03-04-2025 Immature granulocytes/100 WBC (Bld) 0.700 % 0.0-0.9 [facility] Comment on above: IG% - Immature Granu locytes (promyelocytes, myelocytes and metamyelocytes) > 1% indicates that a LEFT SHIFT is Present. Ketones Test strip Ql (U)Ord ered By: Nicola Madison on 03-04-2025 Ketones Ql (U) Negative Negative [facility] L499.0042on 03-04-2025 Trop T High Sen 45 ng/L High <=22 [facility] Comment on above: Performed By: #### L 499.0042 ####[facility] [place] [address] [place], [address] L499.0043on 03-04-2025 Trop T High Sen 42 ng/L High <=22 [facility] [place] Comment on above: Performed By: #### L 499.0043 ####[facility] [place] [address] [place], [address] L501.4021on 03-04-2025 Trop T High Sen 44 ng/L High <=22 [facility] [place] Comment on above: Performed By: #### L 100.0100, L503.7505, L501.4021, L500.2500 ####[facility] [place] [address] [place], [address] L503.7505on 03-04-2025 Natriuretic peptide B (Bld) [Mass/Vol] 3316 pg/mL High <=1800 [facility] Comment on above: Result Comment: Hear t Failure Unlikely: < 300 pg/mLHeart Failure Likely< 50 Years: > 450 pg/mL50-75 Years: > 900 pg/mL>75 Years: > 1800 pg/mL Performed By: #### L 100.0100, L503.7505, L501.4021, L500.2500 ####[facility] [place] [address] [place], [address] MCV (mean corpuscular volume ) determinationOrdered By: Chris Ochoa on 03-04-2025 MCV (RBC) [Entitic vol] 89.3 fL 80-94 W [facility] Magnesiumon 03-04-2025 Magnesium [Mass/Vol] 2.0 mg/dL Normal 1.5-2.2 [facility] Comment on above: Performed By: #### L 501.9985, L501.9520, L501.5200 ####[facility] [place] [address] [facility] [address] [place], [place], [id number] Mean corpuscular hemoglobin (MCH) determinationOrdered By: Chris Ochoa on 03-04-2025 MCH (RBC) [Entitic mass] 27.0 pg 27.0-32.0 [facility] Mean corpuscular hemoglobin concentration (MCHC) determinationOrdered By: Chris Ochoa on 03-04-2025 MCHC (RBC) [Mass/Vol] 30.2 g/dL Low 32-36 [facility] Mean platelet volume determi nationOrdered By: Chris Ochoa on 03-04-2025 Platelet mean volume (Bld) [Entitic vol] 10.2 fL 6.2-12.0 [facility] Microscopic analysis of urin e for red blood cells (RBC)Ordered By: Nicola Madison on 03-04-2025 Microscopic analysis of urine for red blood cells (RBC) 5-10 SEEN /hpf 0-5 [facility] Monocyte percentageOrdered B y: Chris Ochoa on 03-04-2025 Monocytes/100 WBC (Bld) 9.1 % 0-10 W [facility] Mucus LM Ql (Urine sed)Order ed By: Nicola Madison on 03-04-2025 Mucus Ql (Urine sed) 0 SEEN /hpf [facility] Natriuretic peptide.B prohor girish N-Terminal [Mass/volume] in Serum or PlasmaOrdered By: Chris Ochoa on 03-04-2025 Natriuretic peptide.B prohormone N-Terminal [Mass/Vol] 3316 pg/mL High <1800 [facility] Comment on above: Heart Failure Unlike ly: < 300 pg/mLHeart Failure Likely< 50 Years: > 450 pg/mL50-75 Years: > 900 pg/mL>75 Years: > 1800 pg/mL Neutrophil percentageOrdered By: Chris Ochoa on 03-04-2025 Neutrophils/100 WBC (Bld) 78.1 % High 47-70 [facility] Nitrite Test strip Ql (U)Ord ered By: Nicola Madison on 03-04-2025 Nitrite Ql (U) Positive High Negative [facility] Nucleated red blood cell per centageOrdered By: Chris Ochoa on 03-04-2025 Nucleated RBC/100 WBC (Bld) [Ratio] 0 % 0-5 [facility] Platelet countOrdered By: Chino Ochoa on 03-04-2025 Platelets (Bld) [#/Vol] 189 10*3/uL 150-450 [facility] Potassium measurement (mass/ volume)Ordered By: Chris Ochoa on 03-04-2025 Potassium (Unsp spec) [Mass/Vol] 5.2 mmol/L High 3.3-5.1 [facility] Protein Test strip Ql (U)Ord ered By: Nicola Madison on 03-04-2025 Protein Ql (U) 100 mg/dl High Negative [facility] RBC Auto (Bld) [#/Vol]Ordere d By: hCris Ochoa on 03-04-2025 RBC (Bld) [#/Vol] 3.74 10*6/uL Low 4.6-6.2 [facility] Serum creatinine measurement (mass/volume)Ordered By: Chris Ochoa on 03-04-2025 Creatinine [Mass/Vol] 1.86 mg/dL High 0.70-1.20 [facility] Serum glucose measurement (m ass/volume)Ordered By: Chris Ochoa on 03-04-2025 Glucose [Mass/Vol] 124 mg/dL High 70-99 [facility] Serum or plasma calcium kings[place] urement (mass/volume)Ordered By: Chris Ochoa on 07-16-2025 Calcium [Mass/Vol] 9.3 mg/dL 7.6-11.0 [facility] Serum or plasma urea nitroge n measurement (mass/volume)Ordered By: Chris Ochoa on 03-04-2025 Urea nitrogen [Mass/Vol] 37 mg/dL High 4-19 [facility] Sodium levelOrdered By: Chris Ochoa on 03-04-2025 Sodium [Moles/Vol] 138 mmol/L 133-145 [facility] Squamous epithelial cells de tection in urine sediment by light microscopyOrdered By: Nicola Madison on 03-04-2025 Epithelial cells.squamous LM Ql (Urine sed) 0 SEEN /hpf 0-5 [facility] TSH DL <= 0.005 mIU/L QnOrde red By: Nicola Madison on 03-04-2025 TSH Qn 3.780 uIU/mL 0.300-4.20 0 [facility] Thyroid Stim Hormone (TSH)on 03-04-2025 TSH 3.780 uIU/mL Normal 0.300-4.20 0 [facility] Comment on above: Performed By: #### L 501.9985, L501.9520, L501.5200 ####[facility] [address] [place], [address] Troponin T.cardiac [Mass/vol ume] in Serum or Plasma by High sensitivity methodOrdered By: Chris Ochoa on 03-04-2025 Troponin T.cardiac High sensitivity method [Mass/Vol] 42 ng/L High <22 [facility] Troponin T.cardiac High sensitivity method [Mass/Vol] 45 ng/L High <22 [facility] Troponin T.cardiac High sensitivity method [Mass/Vol] 44 ng/L High <22 [facility] Urinalysis, Completeon 03-04 RBC 5-10 SEEN Normal 0-5 [facility] Comment on above: Order Comment: CLEAN CATCH Performed By: #### L 400.0001 ####[facility] [address] [place], [address] BACTERIA 2+ /hpf Normal None Seen [facility] Comment on above: Order Comment: CLEAN CATCH Performed By: #### L 400.0001 ####[facility] [address] [place], [address] WBC >100 SEEN Normal 0-5 [facility] Comment on above: Order Comment: CLEAN CATCH Performed By: #### L 400.0001 ####[facility] [address] [place], [address] EPI,SQUAMOUS 0 SEEN Normal 0-5 [facility] Comment on above: Order Comment: CLEAN CATCH Performed By: #### L 400.0001 ####[facility] [address] [place], [address] Mucus Ql (Urine sed) 0 SEEN Normal [facility] Comment on above: Order Comment: CLEAN CATCH Performed By: #### L 400.0001 ####[facility] [address] [place], [place], [id number] Urine clarityOrdered By: Jacob Madison on 03-04-2025 Clarity (U) Cloudy Clear [facility] Urine color determinationOrd ered By: Nicola Madison on 03-04-2025 Color (U) Yellow Yellow [facility] Urine glucose detectionOrder ed By: Nicola Madison on 03-04-2025 Glucose Ql (U) Normal mg/dl Normal [facility] Urine leukocyte esterase det ection by dipstickOrdered By: Nicola Madison on 03-04-2025 Leukocyte esterase Test strip Ql (U) 500 /ul High Negative [facility] Urine pHOrdered By: Nicola stack on 03-04-2025 pH (U) 6.5 [pH] 5.0 - 8.0 [facility] Urine sediment bacteria coun t by microscopy (number/high power field)Ordered By: Nicola Madison on 03-04-2025 Bacteria LM.HPF (Urine sed) [#/Area] 2 /[HPF] None Seen [facility] Urine specific gravity measu rementOrdered By: Nicola Madison on 03-04-2025 Specific gravity (U) [Rel density] 1.010 1.002-1.03 0 [facility] Urine urobilinogen measureme ntOrdered By: Nicola Madison on 03-04-2025 Urobilinogen Ql (U) Normal mg/dl Normal [facility] White blood cell (WBC) count Ordered By: Chris Ochoa on 03-04-2025 WBC (Bld) [#/Vol] 7.6 10*3/uL 4.4-11.0 [facility] White blood cell countOrdere d By: Nicola Madison on 03-04-2025 White blood cell count >100 SEEN /hpf 0- [facility] Absolute lymphocyte countOrd ered By: Russ Zamora on 11-06-2024 Lymphocytes Auto (Unsp spec) [#/Vol] 0.82 10*3/uL Low 0.83-4.51 [facility] Absolute neutrophil countOrd ered By: Russ Zamora on 11-06-2024 Neutrophils (Bld) [#/Vol] 8.1 10*3/uL High 2.0-7.7 [facility] Anion gap in Serum or Plasma Ordered By: Russ Zamora on 11-06-2024 Anion gap [Moles/Vol] 10 mmol/L 5- [facility] Automated lymphocyte count a s percentage of total leukocytesOrdered By: Russ Zamora on 11-06-2024 Lymphocytes/100 WBC Auto (Unsp spec) 8.1 % Low 19-41 [facility] BUN/creatinine ratioOrdered By: Russ Zamora on 11-06-2024 Urea nitrogen/Creatinine [Mass ratio] 19.3 mg/mg 10- [facility] Basophil percentageOrdered B y: Russ Zamora on 11-06-2024 Basophils/100 WBC (Bld) 0.3 % 0-1 W [facility] Bilirubin, totalOrdered By: Russ Zamora on 11-06-2024 Bilirubin [Mass/Vol] 0.46 mg/dL 0.00-1.30 [facility] CBC W/Diff, Automatedon 10-19 Absolute Lymph 0.82 X10 3/uL Low 0.83-4.51 [facility] Comment on above: Performed By: #### L 500.4050, L504.2610, L100.0100 ####[facility] [address] [place], [address] Absolute Neut 8.1 X10 3/uL High 2.0-7.7 [facility] Comment on above: Performed By: #### L 500.4050, L504.2610, L100.0100 ####[facility] [address] [place], [address] Basophils/100 WBC (Bld) 0.3 % Normal 0-1 W [facility] Comment on above: Performed By: #### L 500.4050, L504.2610, L100.0100 ####[facility] [address] [place], [address] Eosinophils/100 WBC (Bld) 1.7 % Normal 0-5 [facility] Comment on above: Performed By: #### L 500.4050, L504.2610, L100.0100 ####[facility] [address] [place], [address] Erythrocyte distribution width (RBC) [Ratio] 16.8 % High 11.6-14.6 [facility] Comment on above: Performed By: #### L 500.4050, L504.2610, L100.0100 ####[facility] [address] [place], [address] Hematocrit (Bld) [Volume fraction] 34.2 % Low 40-54 [facility] Comment on above: Performed By: #### L 500.4050, L504.2610, L100.0100 ####[facility] [address] [place], [address] Hemoglobin (Bld) [Mass/Vol] 10.7 g/dL Low 13.0-16.5 [facility] Comment on above: Performed By: #### L 500.4050, L504.2610, L100.0100 ####[facility] [address] [place], [address] IG% 0.500 Normal 0.0-0.9 [facility] Comment on above: Result Comment: IG% - Immature Granulocytes (promyelocytes, myelocytes andmetamyelocytes) > 1% indicates that a LEFT SHIFT is Present. Performed By: #### L 500.4050, L504.2610, L100.0100 ####[facility] [address] [place], [address] Lymphocytes/100 WBC (Bld) 8.1 % Low 19-41 [facility] Comment on above: Performed By: #### L 500.4050, L504.2610, L100.0100 ####[facility] [address] [place], [address] MCH (RBC) [Entitic mass] 27.4 pg Normal 27.0-32.0 [facility] Comment on above: Performed By: #### L 500.4050, L504.2610, L100.0100 ####[facility] [address] [place], [address] MCHC (RBC) [Mass/Vol] 31.3 g/dL Low 32-36 [facility] Comment on above: Performed By: #### L 500.4050, L504.2610, L100.0100 ####[facility] [address] [place], [address] MCV (RBC) [Entitic vol] 87.5 fL Normal 80-94 W [facility] Comment on above: Performed By: #### L 500.4050, L504.2610, L100.0100 ####[facility] [address] [place], [address] Monocytes/100 WBC (Bld) 8.8 % Normal 0-10 W [facility] Comment on above: Performed By: #### L 500.4050, L504.2610, L100.0100 ####[facility] [address] [place], [address] Neutrophils/100 WBC (Bld) 80.6 % High 47-70 [facility] Comment on above: Performed By: #### L 500.4050, L504.2610, L100.0100 ####[facility] [address] [place], [address] Nucleated RBC (Bld) [#/Vol] 0 10*3/uL Normal 0-5 [facility] Comment on above: Performed By: #### L 500.4050, L504.2610, L100.0100 ####[facility] [address] [place], [address] Platelet mean volume (Bld) [Entitic vol] 10.4 fL Normal 6.2-12.0 [facility] Comment on above: Performed By: #### L 500.4050, L504.2610, L100.0100 ####[facility] [address] [place], [address] Platelets (Bld) [#/Vol] 212 10*3/uL Normal 150-450 [facility] Comment on above: Performed By: #### L 500.4050, L504.2610, L100.0100 ####[facility] [address] [place], [address] RBC (Bld) [#/Vol] 3.91 10*6/uL Low 4.6-6.2 [facility] Comment on above: Performed By: #### L 500.4050, L504.2610, L100.0100 ####[facility] [address] [place], [address] RDW SD 53.5 fl High 35.1-43.9 [facility] Comment on above: Performed By: #### L 500.4050, L504.2610, L100.0100 ####[facility] [address] [place], [address] WBC (Bld) [#/Vol] 10.1 10*3/uL Normal 4.4-11.0 [facility] [facility] Comment on above: Performed By: #### L 500.4050, L504.2610, L100.0100 ####[facility] [address] [place], [address] Carbon dioxide, total [Moles /volume] in Central venous bloodOrdered By: Russ Zamora on 11-06-2024 CO2 [Moles/Vol] 25.2 mmol/L 21.0-32.0 [facility] Chloride assayOrdered By: Flores Zamora on 11-06-2024 Chloride [Moles/Vol] 105 mmol/L 98-108 [facility] Comprehensive Metabolic Prof ilon 11-06-2024 Albumin [Mass/Vol] 3.8 g/dL Normal 3.4-4.8 [facility] Comment on above: Performed By: #### L 500.4050, L504.2610, L100.0100 ####[facility] [address] [place], [address] Albumin/Globulin [Mass ratio] 0.9 {ratio} Normal 0.9-2.4 [facility] Comment on above: Performed By: #### L 500.4050, L504.2610, L100.0100 ####[facility] [address] [place], [address] ALK PHOS 72 U/L Normal 40-129 [facility] Comment on above: Performed By: #### L 500.4050, L504.2610, L100.0100 ####[facility] [address] [place], [address] ALT [Catalytic activity/Vol] 10 U/L Normal <=46 [facility] Comment on above: Performed By: #### L 500.4050, L504.2610, L100.0100 ####[facility] [address] [place], [address] AST [Catalytic activity/Vol] 16 U/L Normal <=37 [facility] Comment on above: Performed By: #### L 500.4050, L504.2610, L100.0100 ####[facility] [address] [place], [address] Bilirubin [Mass/Vol] 0.46 mg/dL Normal 0.00-1.30 [facility] Comment on above: Performed By: #### L 500.4050, L504.2610, L100.0100 ####[facility] [address] [place], [address] BUN/CRE 19.3 RATIO Normal 10-20 [facility] Comment on above: Performed By: #### L 500.4050, L504.2610, L100.0100 ####[facility] [address] [place], [address] Calcium [Mass/Vol] 9.1 mg/dL Normal 7.6-11.0 [facility] Comment on above: Performed By: #### L 500.4050, L504.2610, L100.0100 ####[facility] [address] [place], [address] Chloride [Moles/Vol] 105 mmol/L Normal 98-108 [facility] Comment on above: Performed By: #### L 500.4050, L504.2610, L100.0100 ####[facility] [address] [place], [address] CO2 [Moles/Vol] 25.2 mmol/L Normal 21.0-32.0 [facility] Comment on above: Performed By: #### L 500.4050, L504.2610, L100.0100 ####[facility] [address] [place], [address] Creatinine [Mass/Vol] 1.87 mg/dL High 0.70-1.20 [facility] Comment on above: Performed By: #### L 500.4050, L504.2610, L100.0100 ####[facility] [address] [place], [address] ECRCL 32.00 ml/min Low 50-250 [facility] Comment on above: Performed By: #### L 500.4050, L504.2610, L100.0100 ####[facility] [address] [place], [address] GAP 10 Normal 5-15 [facility] Comment on above: Performed By: #### L 500.4050, L504.2610, L100.0100 ####[facility] [address] [place], [address] GFR/1.73 sq M.predicted among non-blacks MDRD (S/P/Bld) [Vol rate/Area] 36 mL/min/{1.73_m2} Low >60 [facility] Comment on above: Result Comment: mL/m in/1.73m2 CKD-EPI Creatinine Equation (2020) Performed By: #### L 500.4050, L504.2610, L100.0100 ####[facility] [address] [place], [address] Globulin (S) [Mass/Vol] 4.1 g/dL Normal 2.2-4.2 [facility] Comment on above: Performed By: #### L 500.4050, L504.2610, L100.0100 ####[facility] [address] [place], [address] Glucose [Mass/Vol] 132 mg/dL High 70-99 [facility] Comment on above: Performed By: #### L 500.4050, L504.2610, L100.0100 ####[facility] [facility] [address] [place], [address] Potassium [Moles/Vol] 4.8 mmol/L Normal 3.3-5.1 [facility] Comment on above: Performed By: #### L 500.4050, L504.2610, L100.0100 ####[facility] [address] [place], [address] Sodium [Moles/Vol] 140 mmol/L Normal 133-145 [facility] Comment on above: Performed By: #### L 500.4050, L504.2610, L100.0100 ####[facility] [address] [place], [address] T PROT 7.9 g/dL Normal 5.9-8.4 [facility] Comment on above: Performed By: #### L 500.4050, L504.2610, L100.0100 ####[facility] [address] [place], [address] Urea nitrogen [Mass/Vol] 36 mg/dL High 4-19 [facility] Comment on above: Performed By: #### L 500.4050, L504.2610, L100.0100 ####[facility] [address] [place], [address] Eosinophil percentageOrdered By: Russ Zamora on 11-06-2024 Eosinophils/100 WBC (Bld) 1.7 % 0-5 [facility] Erythrocyte distribution wid th ratioOrdered By: Russ Zamora on 11-06-2024 Erythrocyte distribution width (RBC) [Ratio] 16.8 % High 11.6-14.6 [facility] Erythrocyte distribution wid th standard deviationOrdered By: Russ Zamora on 11-06-2024 Erythrocyte distribution width (RBC) [Entitic vol] 53.5 fL High 35.1-43.9 [facility] Erythrocyte distribution width (RBC) [Ratio] 53.5 fl High 35.1-43.9 [facility] Estimation of creatinine rowdy aranceOrdered By: Russ Zamora on 11-06-2024 Estimated Creatinine Clearance Calc 32.00 ml/min Low 50-250 [facility] GFR/1.73 sq M.predicted kaylyn g non-blacks MDRD (S/P/Bld) [Vol rate/Area]Ordered By: Russ Zamora on 11-06-2024 Estimated GFR (MDRD) Non-Af Amer 36 Low >60 [facility] Comment on above: mL/min/1.73m2 CKD-EP I Creatinine Equation (2020) Glomerular filtration rate ( GFR) estimation/1.73 sq m using serum, plasma, or whole bOrdered By: Russ Zamora on 11-06-2024 GFR/1.73 sq M.predicted among non-blacks MDRD (S/P/Bld) [Vol rate/Area] 36 mL/min/{1.73_m2} Low >60 [facility] Comment on above: mL/min/1.73m2 CKD-EP I Creatinine Equation (2020) Hematocrit Auto (Bld) [Volum e fraction]Ordered By: Russ Zamora on 11-06-2024 Hematocrit (Bld) [Volume fraction] 34.2 % Low 40-54 [facility] Hemoglobin measurementOrdere d By: Russ Zamora on 11-06-2024 Hemoglobin (Bld) [Mass/Vol] 10.7 g/dL Low 13.0-16.5 [facility] Immature granulocytes/100 WB C Auto (Bld)Ordered By: Russ Zamora on 11-06-2024 Immature granulocytes/100 WBC (Bld) 0.500 % 0.0-0.9 [facility] Comment on above: IG% - Immature Granu locytes (promyelocytes, myelocytes and metamyelocytes) > 1% indicates that a LEFT SHIFT is Present. LDHon 11-06-2024 LDH 135 U/L Normal 87-241 [facility] Comment on above: Order Comment: 1 Performed By: #### L 500.4050, L504.2610, L100.0100 ####[facility] [address] [place], [address] Laboratory - Chemistry and C hemistry - challengeOrdered By: Russ Zamora on 11-06-2024 AST [Catalytic activity/Vol] 16 U/L <38 [facility] Lactate dehydrogenase (LDH) measurementOrdered By: Russ Zamora on 11-06-2024 LDH [Catalytic activity/Vol] 135 U/L 87-241 [facility] Lymphocytes Auto (Unsp spec) [#/Vol]Ordered By: Russ Zamora on 11-06-2024 Lymphocytes (Bld) [#/Vol] 0.82 10*3/uL Low 0.83-4.51 [facility] Lymphocytes/100 WBC Auto (Un sp spec)Ordered By: Russ Zamora on 11-06-2024 Lymphocytes/100 WBC (Bld) 8.1 % Low 19-41 [facility] MCV (mean corpuscular volume ) determinationOrdered By: Russ Zamora on 11-06-2024 MCV (RBC) [Entitic vol] 87.5 fL 80-94 W [facility] Mean corpuscular hemoglobin (MCH) determinationOrdered By: Russ Zamora on 11-06-2024 MCH (RBC) [Entitic mass] 27.4 pg 27.0-32.0 [facility] Mean corpuscular hemoglobin concentration (MCHC) determinationOrdered By: Russ Zamora on 11-06-2024 MCHC (RBC) [Mass/Vol] 31.3 g/dL Low 32-36 [facility] Mean platelet volume determi nationOrdered By: Russ Zamora on 11-06-2024 Platelet mean volume (Bld) [Entitic vol] 10.4 fL 6.2-12.0 [facility] Monocyte percentageOrdered B y: Russ Zamora on 11-06-2024 Monocytes/100 WBC (Bld) 8.8 % 0-10 W [facility] Neutrophil percentageOrdered By: Russ Zamora on 11-06-2024 Neutrophils/100 WBC (Bld) 80.6 % High 47-70 [facility] Nucleated red blood cell per centageOrdered By: Russ Zamora on 11-06-2024 Nucleated RBC/100 WBC (Bld) [Ratio] 0 % 0-5 [facility] Oncology Visit Reporton 10-19 Oncology Visit Report Normal [facility] Platelet countOrdered By: Flores Zamora on 11-06-2024 Platelets (Bld) [#/Vol] 212 10*3/uL 150-450 [facility] Potassium (Unsp spec) [Mass/ Vol]Ordered By: Russ Zamora on 11-06-2024 Potassium [Moles/Vol] 4.8 mmol/L 3.3-5.1 [facility] Potassium measurement (mass/ volume)Ordered By: Russ Zamora on 11-06-2024 Potassium (Unsp spec) [Mass/Vol] 4.8 mmol/L 3.3-5.1 [facility] RBC Auto (Bld) [#/Vol]Ordere d By: Russ Zamora on 11-06-2024 RBC (Bld) [#/Vol] 3.91 10*6/uL Low 4.6-6.2 [facility] Serum creatinine measurement (mass/volume)Ordered By: Russ Zamora on 11-06-2024 Creatinine [Mass/Vol] 1.87 mg/dL High 0.70-1.20 [facility] Serum globulin measurementOr dered By: Russ Zamora on 11-06-2024 Globulin (S) [Mass/Vol] 4.1 g/dL 2.2-4.2 W [facility] Serum glucose measurement (m ass/volume)Ordered By: Russ Zamora on 11-06-2024 Glucose [Mass/Vol] 132 mg/dL High 70-99 [facility] Serum or plasma alanine ortiz otransferase (ALT) measurementOrdered By: Russ Zamora on 11-06-2024 ALT [Catalytic activity/Vol] 10 U/L <47 [facility] Serum or plasma albumin kingsley urement (mass/volume)Ordered By: Russ Zamora on 11-06-2024 Albumin [Mass/Vol] 3.8 g/dL 3.4-4.8 [facility] Serum or plasma albumin/glob ulin mass ratioOrdered By: Russ Zamora on 11-06-2024 Albumin/Globulin [Mass ratio] 0.9 {ratio} 0.9-2.4 [facility] Serum or plasma alkaline roosevelt sphatase measurementOrdered By: Russ Zamora on 11-06-2024 ALP [Catalytic activity/Vol] 72 U/L 40-129 [facility] Serum or plasma calcium kingsley urement (mass/volume)Ordered By: Russ Zamora on 11-06-2024 Calcium [Mass/Vol] 9.1 mg/dL 7.6-11.0 [facility] Serum or plasma urea nitroge n measurement (mass/volume)Ordered By: Russ Zamora on 11-06-2024 Urea nitrogen [Mass/Vol] 36 mg/dL High 4-19 [facility] Sodium levelOrdered By: Esau Zamora on 11-06-2024 Sodium [Moles/Vol] 140 mmol/L 133-145 [facility] Total proteinOrdered By: Frantz Zamora on 11-06-2024 Protein [Mass/Vol] 7.9 g/dL 5.9-8.4 [facility] White blood cell (WBC) count Ordered By: Russ Zamora on 11-06-2024 WBC (Bld) [#/Vol] 10.1 10*3/uL 4.4-11.0 [facility] CREATININE FINGERSTICKon Creatinine [Mass/Vol] 1.5 mg/dL High 0.70-1.30 [facility] Comment on above: Performed By: #### L 9100.0200 ####[facility] [address] [facility] [place], [place], [address] GFR/1.73 sq M.predicted among non-blacks MDRD (S/P/Bld) [Vol rate/Area] 48.0000 mL/min/{1.73_m2} Low >60 [facility] Comment on above: Performed By: #### L 9100.0200 ####[facility] [address] [facility] [place], [address] CT Chest AND Abd W/ Contrast on 10-30-2024 CT Chest AND Abd W/ Contrast Normal [facility] Creatinine measurement at be dsideOrdered By: Russ Zamora on 10-30-2024 Creatinine [Mass/Vol] 1.5 mg/dL High 0.70-1.30 [facility] EGFROrdered By: Russ Zamora on 10-30-2024 GFR/1.73 sq M.predicted among non-blacks MDRD (S/P/Bld) [Vol rate/Area] 48.0000 mL/min/{1.73_m2} Low >60 [facility] Pulmonary Visit Reporton Pulmonary Visit Report Normal [facility] Hemoglobin A1con 10-21-2024 HbA1c (Bld) [Mass fraction] 6.6 % Normal <=5.6 [facility] Comment on above: Performed By: #### L 501.9985 ####[facility] [address] [place], [address] Hemoglobin A1c percentageOrd ered By: Tonio Fajardo on 10-20-2024 HbA1c (Bld) [Mass fraction] 6.6 % >5.7 [facility] 6 Minute Walk Teston 025 6 Minute Walk Test Normal [facility] Absolute neutrophil countOrd ered By: Leslie Arriaga on 09-25-2024 Neutrophils (Bld) [#/Vol] 6.7 10*3/uL 2.0-7.7 [facility] BNP (brain natriuretic pepti de measurement)Ordered By: Leslie Arriaga on 09-25-2024 Natriuretic peptide B (Bld) [Mass/Vol] 183.7 pg/mL High 0-100 [facility] BNP,B-Type NATRIURETIC PEPTI Adrienne 09-25-2024 Natriuretic peptide B (Bld) [Mass/Vol] 183.7 pg/mL High 0-100 [facility] Comment on above: Performed By: #### L 503.6620, L500.2500, L100.0100 ####[facility] [address] [place], [address] Basic Metabolic Profile (BMP )on 09-25-2024 BUN/CRE 15.4 RATIO Normal 10-20 [facility] Comment on above: Performed By: #### L 503.6620, L500.2500, L100.0100 ####[facility] [address] [place], [address] CA,Total 9.1 mg/dL Normal 8.5-10.1 [facility] Comment on above: Performed By: #### L 503.6620, L500.2500, L100.0100 ####[facility] [address] [place], [address] Chloride [Moles/Vol] 105 mmol/L Normal 98-107 [facility] Comment on above: Performed By: #### L 503.6620, L500.2500, L100.0100 ####[facility] [address] [place], [address] CO2 [Moles/Vol] 28.0 mmol/L Normal 21.0-32.0 [facility] Comment on above: Performed By: #### L 503.6620, L500.2500, L100.0100 ####[facility] [address] [place], [address] Creatinine [Mass/Vol] 2.21 mg/dL High 0.70-1.30 [facility] Comment on above: Result Comment: The validity of the calculated GFR GFRAA in patients over70 years has not been determined. Clinical correlation isessential. Performed By: #### L 503.6620, L500.2500, L100.0100 ####[facility] [address] [place], [address] EST GFR - AA 37 mL/min Low >60 [facility] Comment on above: Result Comment: Afri can Swedish GFR Calc Performed By: #### L 503.6620, L500.2500, L100.0100 ####[facility] [address] [place], [address] GAP 5 Normal 5-15 [facility] Comment on above: Performed By: #### L 503.6620, L500.2500, L100.0100 ####[facility] [address] [place], [address] GFR/1.73 sq M.predicted among non-blacks MDRD (S/P/Bld) [Vol rate/Area] 31 mL/min/{1.73_m2} Low >60 [facility] Comment on above: Result Comment: Non- GFR Calc Performed By: #### L 503.6620, L500.2500, L100.0100 ####[facility] [address] [place], [address] Glucose [Mass/Vol] 127 mg/dL High 74-106 [facility] Comment on above: Result Comment: Fast ing Glucose result greater than or equal to 126 mg/dLsuggests DIABETES MELLITUS per A.D.A. criteria. Performed By: #### L 503.6620, L500.2500, L100.0100 ####[facility] [address] [place], [address] Potassium [Moles/Vol] 4.3 mmol/L Normal 3.5-5.1 [facility] Comment on above: Performed By: #### L 503.6620, L500.2500, L100.0100 ####[facility] [address] [place], [address] Sodium [Moles/Vol] 138 mmol/L Normal 136-145 [facility] Comment on above: Performed By: #### L 503.6620, L500.2500, L100.0100 ####[facility] [address] [place], [address] Urea nitrogen [Mass/Vol] 34 mg/dL High 7-18 [facility] Comment on above: Performed By: #### L 503.6620, L500.2500, L100.0100 ####[facility] [address] [place], [address] Basophil percentageOrdered B y: Leslie Arriaga on 09-25-2024 Basophils/100 WBC (Bld) 0.6 % 0-1 W [facility] Blood urea nitrogen (BUN)/cr eatinine ratioOrdered By: Leslie Arriaga on 09-25-2024 Urea nitrogen/Creatinine [Mass ratio] 15.4 mg/mg 10-20 [facility] CBC W/Diff, Automatedon Absolute Lymph 0.91 X10 3/uL Normal 0.83-4.51 [facility] Comment on above: Performed By: #### L 503.6620, L500.2500, L100.0100 ####[facility] [address] [place], [address] Absolute Neut 6.7 X10 3/uL Normal 2.0-7.7 [facility] Comment on above: Performed By: #### L 503.6620, L500.2500, L100.0100 ####[facility] [address] [place], [address] Basophils/100 WBC (Bld) 0.6 % Normal 0-1 W [facility] Comment on above: Performed By: #### L 503.6620, L500.2500, L100.0100 ####[facility] [address] [place], [address] Eosinophils/100 WBC (Bld) 1.1 % Normal 0-5 [facility] Comment on above: Performed By: #### L 503.6620, L500.2500, L100.0100 ####[facility] [address] [place], [address] Erythrocyte distribution width (RBC) [Ratio] 16.2 % High 11.6-14.6 [facility] Comment on above: Performed By: #### L 503.6620, L500.2500, L100.0100 ####[facility] [address] [place], [address] Hematocrit (Bld) [Volume fraction] 36.0 % Low 40-54 [facility] Comment on above: Performed By: #### L 503.6620, L500.2500, L100.0100 ####[facility] [address] [place], [address] Hemoglobin (Bld) [Mass/Vol] 11.1 g/dL Low 13.0-16.5 [facility] Comment on above: Performed By: #### L 503.6620, L500.2500, L100.0100 ####[facility] [address] [place], [address] IG% 0.700 Normal 0.0-0.9 [facility] Comment on above: Result Comment: IG% - Immature Granulocytes (promyelocytes, myelocytes andmetamyelocytes) > 1% indicates that a LEFT SHIFT is Present. Performed By: #### L 503.6620, L500.2500, L100.0100 ####[facility] [address] [place], [address] Lymphocytes/100 WBC (Bld) 10.4 % Low 19-41 [facility] Comment on above: Performed By: #### L 503.6620, L500.2500, L100.0100 ####[facility] [address] [place], [address] MCH (RBC) [Entitic mass] 27.7 pg Normal 27.0-32.0 [facility] Comment on above: Performed By: #### L 503.6620, L500.2500, L100.0100 ####[facility] [address] [place], [address] MCHC (RBC) [Mass/Vol] 30.8 g/dL Low 32-36 [facility] Comment on above: Performed By: #### L 503.6620, L500.2500, L100.0100 ####[facility] [address] [place], [address] MCV (RBC) [Entitic vol] 89.8 fL Normal 80-94 W [facility] Comment on above: Performed By: #### L 503.6620, L500.2500, L100.0100 ####[facility] [address] [place], [address] Monocytes/100 WBC (Bld) 10.3 % High 0-10 W [facility] Comment on above: Performed By: #### L 503.6620, L500.2500, L100.0100 ####[facility] [address] [place], [address] Neutrophils/100 WBC (Bld) 76.9 % High 47-70 [facility] Comment on above: Performed By: #### L 503.6620, L500.2500, L100.0100 ####[facility] [address] [place], [address] Nucleated RBC (Bld) [#/Vol] 0 10*3/uL Normal 0-5 [facility] Comment on above: Performed By: #### L 503.6620, L500.2500, L100.0100 ####[facility] [address] [place], [address] Platelet mean volume (Bld) [Entitic vol] 10.5 fL Normal 6.2-12.0 [facility] Comment on above: Performed By: #### L 503.6620, L500.2500, L100.0100 ####[facility] [address] [place], [address] Platelets (Bld) [#/Vol] 256 10*3/uL Normal 150-450 [facility] Comment on above: Performed By: #### L 503.6620, L500.2500, L100.0100 ####[facility] [address] [place], [address] RBC (Bld) [#/Vol] 4.01 10*6/uL Low 4.6-6.2 [facility] Comment on above: Performed By: #### L 503.6620, L500.2500, L100.0100 ####[facility] [address] [place], [address] RDW SD 52.7 fl High 35.1-43.9 [facility] Comment on above: Performed By: #### L 503.6620, L500.2500, L100.0100 ####[facility] [address] [place], [address] WBC (Bld) [#/Vol] 8.7 10*3/uL Normal 4.4-11.0 [facility] Comment on above: Performed By: #### L 503.6620, L500.2500, L100.0100 ####[facility] [address] [place], [address] Carbon dioxide measurementOr dered By: Leslie Arriaga on 09-25-2024 CO2 [Moles/Vol] 28.0 mmol/L 21.0-32.0 [facility] Cardiology Visit Reporton Cardiology Visit Report Normal W [facility] Chest PA and Lateralon 09-25 Chest PA and Lateral Normal [facility] Chloride measurementOrdered By: Leslie Arriaga on 09-25-2024 Chloride [Moles/Vol] 105 mmol/L 98-107 [facility] Eosinophil percentageOrdered By: Leslie Arriaga on 09-25-2024 Eosinophils/100 WBC (Bld) 1.1 % 0-5 [facility] Erythrocyte distribution wid th ratioOrdered By: Leslie Arriaga on 09-25-2024 Erythrocyte distribution width (RBC) [Ratio] 16.2 % High 11.6-14.6 [facility] Erythrocyte distribution wid th standard deviationOrdered By: Leslie Arriaga on 09-25-2024 Erythrocyte distribution width (RBC) [Entitic vol] 52.7 fL High 35.1-43.9 [facility] Estimated glomerular filtrat ion rate (GFR) AmericanOrdered By: Lesile Arriaga on 09-25-2024 Estimated GFR (MDRD) Amer 37 mL/min Low >60 [facility] Comment on above: GFR Calc Glomerular filtration rate ( GFR) estimationOrdered By: Leslie Arriaga on 09-25-2024 Estimated GFR (MDRD) Non-Af Amer 31 mL/min Low >60 [facility] Comment on above: Non- GFR Calc Glucose measurementOrdered B y: Leslie Arriaga on 09-25-2024 Glucose [Mass/Vol] 127 mg/dL High 74-106 [facility] Comment on above: Fasting Glucose resu lt greater than or equal to 126 mg/dL suggests DIABETES MELLITUS per A.D.A. criteria. Hematocrit Auto (Bld) [Volum e fraction]Ordered By: Leslie Arriaga on 09-25-2024 Hematocrit (Bld) [Volume fraction] 36.0 % Low 40-54 [facility] Hemoglobin measurementOrdere d By: Leslie Arriaga on 09-25-2024 Hemoglobin (Bld) [Mass/Vol] 11.1 g/dL Low 13.0-16.5 [facility] Immature granulocytes/100 WB C Auto (Bld)Ordered By: Leslie Arriaga on 09-25-2024 Immature granulocytes/100 WBC (Bld) 0.700 % 0.0-0.9 [facility] Comment on above: IG% - Immature Granu locytes (promyelocytes, myelocytes and metamyelocytes) > 1% indicates that a LEFT SHIFT is Present. Lymphocytes Auto (Unsp spec) [#/Vol]Ordered By: Leslie Arriaga on 09-25-2024 Lymphocytes (Bld) [#/Vol] 0.91 10*3/uL 0.83-4.51 [facility] Lymphocytes/100 WBC Auto (Un sp spec)Ordered By: Leslie Arriaga on 09-25-2024 Lymphocytes/100 WBC (Bld) 10.4 % Low 19-41 [facility] MCV (mean corpuscular volume ) determinationOrdered By: Leslie Arriaga on 09-25-2024 MCV (RBC) [Entitic vol] 89.8 fL 80-94 W [facility] Mean corpuscular hemoglobin (MCH) determinationOrdered By: Leslie Arriaga on 09-25-2024 MCH (RBC) [Entitic mass] 27.7 pg 27.0-32.0 [facility] Mean corpuscular hemoglobin concentration (MCHC) determinationOrdered By: Leslie Arriaga on 09-25-2024 MCHC (RBC) [Mass/Vol] 30.8 g/dL Low 32-36 [facility] Mean platelet volume determi nationOrdered By: Leslie Arriaga on 09-25-2024 Platelet mean volume (Bld) [Entitic vol] 10.5 fL 6.2-12.0 [facility] Monocyte percentageOrdered B y: Leslie Arriaga on 09-25-2024 Monocytes/100 WBC (Bld) 10.3 % High 0-10 W [facility] Neutrophil percentageOrdered By: Leslie Arriaga on 09-25-2024 Neutrophils/100 WBC (Bld) 76.9 % High 47-70 [facility] Nucleated red blood cell per centageOrdered By: Leslie Arriaga on 09-25-2024 Nucleated RBC/100 WBC (Bld) [Ratio] 0 % 0-5 [facility] Platelet countOrdered By: Linsey Arriaga on 09-25-2024 Platelets (Bld) [#/Vol] 256 10*3/uL 150-450 [facility] Potassium measurementOrdered By: Leslie Arriaga on 09-25-2024 Potassium [Moles/Vol] 4.3 mmol/L 3.5-5.1 [facility] RBC Auto (Bld) [#/Vol]Ordere d By: Leslie Arriaga on 09-25-2024 RBC (Bld) [#/Vol] 4.01 10*6/uL Low 4.6-6.2 [facility] Serum anion gap measurementO rdered By: Lesile Arriaga on 09-25-2024 Anion gap [Moles/Vol] 5 mmol/L 5-15 [facility] Serum or plasma calcium kingsley urement (mass/volume)Ordered By: Leslie Arriaga on 09-25-2024 Calcium [Mass/Vol] 9.1 mg/dL 8.5-10.1 [facility] Serum or plasma creatinine m easurement (mass/volume)Ordered By: Leslie Arriaga on 09-25-2024 Creatinine [Mass/Vol] 2.21 mg/dL High 0.70-1.30 [facility] Comment on above: The validity of the calculated GFR & GFRAA in patients over 70 years has not been determined. Clinical correlation is essential. Serum or plasma urea nitroge n measurement (mass/volume)Ordered By: Leslie Arriaga on 09-25-2024 Urea nitrogen [Mass/Vol] 34 mg/dL High 7-18 [facility] Sodium levelOrdered By: Brian Arriaga on 09-25-2024 Sodium [Moles/Vol] 138 mmol/L 136-145 [facility] White blood cell (WBC) count Ordered By: Leslie Arriaga on 09-25-2024 WBC (Bld) [#/Vol] 8.7 10*3/uL 4.4-11.0 [facility] Culture, Fungus 8482on 08-04 CUF Normal [facility] Comment on above: Performed By: #### M 100.1999, M6.1999, M100.400, M100.3000 ####[facility] [id number] [place], [address] Culture, Anaerobic Any Sourc talat 07-09-2024 CUAN Prevotella and Porphyromonas species are generally SUSCEPTIBLE to Cefoxitin, Chloramphenicol, and Metronidazole and are usually RESISTANT to Penicillin. Prevotella oralis Beta Lactamase-Reportable Positive [facility] Comment on above: Performed By: #### M 100.1999, M6.1999, M100.4001, M100.3000 ####[facility] [id number] [place], [address] Wound Cultureon 07-05-2024 WC Normal [facility] Comment on above: Performed By: #### M 100.1999, M600.1999, M100.4001, M100.3000 ####[facility] [address] [place], [address] Gram Stainon 07-04-2024 GS Positive [facility] Comment on above: Performed By: #### M 100.2000, M600.2000, M100.4001, M100.3000 ####[facility] [id number] [place], [address] Bacteria identified Anaer cx Nom (Unsp spec)Ordered By: Joaquim Suárez on 07-03-2024 Anaerobic Culture Prevotella oralis Abnormal [facility] Fungus identified Cx Nom (Un sp spec)Ordered By: Joaquim Suárez on 07-03-2024 Fungal Culture Ann-Marie parapsilosis Abnormal [facility] Gram stainOrdered By: Bladimir Suárez on 07-03-2024 Microscopic observation Gram stain Nom (Unsp spec) [facility] Routine wound cultureOrdered By: Joaquim Suárez on 07-03-2024 Wound Culture Staphylococcus pseudintermediu Abnormal [facility] Lower Ext Art Exam w/o Exerc soco 06-17-2024 Lower Ext Art Exam w/o Exercis Normal [facility] Venous Duplex US - Hi Extre mon 06-17-2024 Venous Duplex US - Hi Extrem Normal [facility] Estimated glomerular filtrat ion rate (GFR) AmericanOrdered By: Russ Zamora on 05-05-2024 Estimated GFR (MDRD) Amer 38 mL/min Low >60 [facility] Comment on above: GFR Calc Miscellaneous procedureOrder ed By: Russ Zamora on 01-28-2024 Miscellaneous Test See comment [facility] Comment on above: Sent directly to [facility] per ordering physician. Bacteria identified Cx Nom ( Wound)Ordered By: Joaquim Suárez on 12-24-2023 Wound Culture Staphylococcus pseudintermediu [facility] Wound Culture Enterococcus faecalis [facility] Wound Culture Streptococcus pyogenes [facility] Gram stain for investigation of transfusion reactionOrdered By: Joaquim Suárez on 12-24-2023 Microscopic observation Gram stain Nom (Unsp spec) [facility] Absolute lymphocyte countOrd ered By: Russ Zamora on 11-06-2023 Lymphocytes Auto (Unsp spec) [#/Vol] 0.95 10*3/uL 0.83-4.51 [facility] Addendum DocumentOrdered By: Russ Zamora on 11-06-2023 Serum Immunofixation Comments Comment . [facility] Comment on above: Protein electrophore sis scan will follow via computer,mail, or train operator delivery. Albumin Elph [Mass/Vol]Order ed By: Russ Zamora on 11-06-2023 Albumin [Mass/Vol] 3.2 g/dL 2.9-4.4 [facility] Alpha 1 globulin Elph [Mass/ Vol]Ordered By: Russ Zamora on 11-06-2023 Cqren-8-Szrnuutbg (PILY) 0.4 g/dL 0.0-0.4 W [facility] Ejdlq-6-Ynpmggqpm (PILY) 1.3 g/dL High 0.4-1.0 W [facility] Automated lymphocyte count a s percentage of total leukocytesOrdered By: Russ Zamora on 11-06-2023 Lymphocytes/100 WBC Auto (Unsp spec) 10.5 % 19-41 [facility] Basophil percentageOrdered B y: Russ Zamora on 11-06-2023 Basophils/100 WBC (Bld) 0.6 % 0-1 W [facility] Bilirubin [Mass/Vol] 0.30 mg/dL 0.20-1.00 [facility] Comment on above: For patients on eltr ombopag therapy, use of Dimension Hydro TBIL is not recommended. Chloride [Moles/Vol] 105 mmol/L 98-107 [facility] Eosinophils/100 WBC (Bld) 2.1 % 0-5 [facility] Glucose [Mass/Vol] 106 mg/dL 74-106 [facility] Comment on above: Fasting Glucose resu lt from 100 to 125 mg/dL suggests IMPAIRED HOMEOSTASIS per A.D.A. criteria. Hemoglobin (Bld) [Mass/Vol] 11.5 g/dL 13.0-16.5 [facility] LDH [Catalytic activity/Vol] 170 U/L 87-241 [facility] Monocytes/100 WBC (Bld) 10.7 % 0-10 W [facility] Neutrophils (Bld) [#/Vol] 6.8 10*3/uL 2.0-7.7 [facility] Neutrophils/100 WBC (Bld) 75.2 % 47-70 [facility] Potassium [Moles/Vol] 4.3 mmol/L 3.5-5.1 [facility] Protein [Mass/Vol] 8.2 g/dL 6.4-8.2 [facility] Sodium [Moles/Vol] 135 mmol/L 136-145 [facility] WBC (Bld) [#/Vol] 9.0 10*3/uL 4.4-11.0 [facility] Beta globulin Elph [Mass/Vol ]Ordered By: Russ Zamora on 11-06-2023 Beta-Globulins (PILY) 1.0 g/dL 0.7-1.3 [facility] C-reactive protein measureme nt by high sensitivity methodOrdered By: Russ Zamora on 11-06-2023 C-Reactive Protein Extended Range 22.10 mg/L High 0.0-3.0 [facility] Comment on above: C-Reactive Protein ( CRP) provides useful information for thediagnosis, therapy and monitoring of inflammatory processesand associated diseases. For the evaluation of Relative Riskfor Cardiovascular Disease, a High Sensitivity CRP (HSCRP)should be ordered. C-reactive protein measurement by high sensitivity method 22.10 mg/L High 0.0-3.0 [facility] Comment on above: C-Reactive Protein ( CRP) [...] [place] Erythrocyte distribution wid th ratioOrdered By: Russ Zamora on 11-06-2023 Erythrocyte distribution width (RBC) [Ratio] 15.5 % 11.6-14.6 [facility] Erythrocyte distribution wid th standard deviationOrdered By: Russ Zamora on 11-06-2023 Erythrocyte distribution width (RBC) [Entitic vol] 49.5 fL 35.1-43.9 [facility] Erythrocyte sedimentation ra teOrdered By: Russ Zamora on 11-06-2023 ESR (Bld) [Velocity] 21 mm/h High 0-20 [facility] Gamma globulin Elph [Mass/Vo l]Ordered By: Russ Zamora on 11-06-2023 Gamma Globulins (PILY) 1.8 g/dL 0.4-1.8 [facility] Hematocrit Auto (Bld) [Volum e fraction]Ordered By: Russ Zamora on 11-06-2023 Hematocrit (Bld) [Volume fraction] 36.8 % 40-54 [facility] Hemoglobin (Reticulocytes) [ Entitic mass]Ordered By: Russ Zamora on 11-06-2023 Reticulocyte Hemoglobin Equivalent 31.4 pg 30-35 [facility] Hemoglobin in reticulocytes (mass per reticulocyte)Ordered By: Russ Zamora on 11-06-2023 Hemoglobin (Reticulocytes) [Entitic mass] 31.4 pg 30-35 [facility] IgA [Mass/Vol]Ordered By: Flores Zamora on 11-06-2023 Immunoglobulin A 311 mg/dL 61-437 [facility] IgG [Mass/Vol]Ordered By: Flores Zamora on 11-06-2023 Immunoglobulin G 1529 mg/dL 603-1613 [facility] Immature granulocytes/100 WB C Auto (Bld)Ordered By: Russ Zamora on 11-06-2023 Immature granulocytes/100 WBC (Bld) 0.900 % 0.0-0.9 [facility] Comment on above: IG% - Immature Granu locytes (promyelocytes, myelocytes and metamyelocytes) > 1% indicates that a LEFT SHIFT is Present. Immature reticulocyte fracti onOrdered By: Russ Zamora on 11-06-2023 Immature Reticulocyte Fraction 22.10 % High 3.00-15.90 [facility] Immunoglobulin M measurement Ordered By: Russ Zamora on 11-06-2023 Immunoglobulin M 157 mg/dL High 15-143 [facility] Immunoglobulin light chains. kappa [Mass/Vol]Ordered By: Russ Zamora on 11-06-2023 Free Slana Light Chains, Quant 100.3 mg/L High 3.3-19.4 [facility] Immunoglobulin light chains. kappa/Immunoglobulin light chains.lambda (S) [Mass ratio]Ordered By: Russ Zamora on 11-06-2023 Free Slana/Lambda Light Chain Ratio 1.63 0.26-1.65 [facility] Comment on above: Performed at: [address] [id number] Director: Seb Bertrand PhD, Phone: [phone] Interpretation IEP [Interp]O rdered By: Russ Zamora on 11-06-2023 Immunofixation Screen Comment . [facility] Comment on above: No monoclonality det ected. Interpretation of serum or p lasma protein pattern by immunofixation (narrative resultOrdered By: Russ Zamora on 11-06-2023 Protein Fractions Immunofixation Jose Luis [Interp] Not Observed g/dL Not Observed [facility] Laboratory - Chemistry and C hemistry - challengeOrdered By: Russ Zamora on 11-06-2023 Albumin/Globulin [Mass ratio] 0.6 {ratio} 0.9-2.4 [facility] ALP [Catalytic activity/Vol] 62 U/L 45-117 [facility] ALT [Catalytic activity/Vol] 17 U/L 16-61 [facility] CO2 [Moles/Vol] 24.0 mmol/L 21.0-32.0 [facility] Urea nitrogen/Creatinine [Mass ratio] 21.9 mg/mg 10-20 [facility] Laboratory - Hematology and Cell countsOrdered By: Russ Zamora on 11-06-2023 MCH (RBC) [Entitic mass] 27.5 pg 27.0-32.0 [facility] MCHC (RBC) [Mass/Vol] 31.3 g/dL 32-36 [facility] Nucleated RBC/100 WBC (Bld) [Ratio] 0 % 0-5 [facility] Platelet mean volume (Bld) [Entitic vol] 9.1 fL 6.2-12.0 [facility] Platelets (Bld) [#/Vol] 270 10*3/uL 150-450 [facility] Lambda free light chain kingsley urementOrdered By: Russ Zamora on 11-06-2023 Free Lambda Light Chains, Quant 61.5 mg/L High 5.7-26.3 [facility] No Panel InformationOrdered By: Russ Zamora on 11-06-2023 Addendum Document Comment . [facility] Comment on above: Protein electrophore sis scan will follow via computer,mail, or train operator delivery. Estimated Creatinine Clearance Calc 31.12 ml/min [facility] Estimated GFR (MDRD) Amer 43 mL/min >60 [facility] Comment on above: GFR Calc Estimated GFR (MDRD) Non-Af Amer 35 mL/min >60 [facility] Comment on above: Non- GFR Calc Protein Fractions Immunofixa tion Jose Luis [Interp]Ordered By: Russ Zamora on 11-06-2023 M-Arash (PILY) Not Observed g/dL Not Observed [facility] RBC Auto (Bld) [#/Vol]Ordere d By: Russ Zamora on 11-06-2023 RBC (Bld) [#/Vol] 4.18 10*6/uL 4.6-6.2 [facility] Reticulocytes Auto (Bld) [#/ Vol]Ordered By: Russ Zamora on 11-06-2023 Reticulocyte Count 2.12 % High 0.5-1.5 [facility] Reticulocytes/100 RBC (Bld) 2.12 % High 0.5-1.5 [facility] Serum albumin/globulin ratio Ordered By: Russ Zamora on 11-06-2023 Albumin/Globulin (PILY) 0.8 0.7-1.7 [facility] Serum ngyie-8-awjbyqtj measu rement by electrophoresisOrdered By: Russ Zamora on 11-06-2023 Alpha 1 globulin Elph [Mass/Vol] 0.4 g/dL 0.0-0.4 [facility] Alpha 1 globulin Elph [Mass/Vol] 1.3 g/dL High 0.4-1.0 [facility] Serum globulin measurement ( mass/volume)Ordered By: Russ Zamora on 11-06-2023 Globulin (S) [Mass/Vol] 4.4 g/dL 2.2-3.9 [facility] Serum immunoglobulin kappa l ight chains/immunoglobulin lambda light chains mass ratioOrdered By: Russ Zamora on 11-06-2023 Immunoglobulin light chains.kappa/Immunoglobu mellissa light chains.lambda (S) [Mass ratio] 1.63 0.26-1.65 [facility] Comment on above: Performed at: [address] [id number] Director: Seb Bertrand PhD, Phone: [phone] Serum or plasma IgA measurem ent (mass/volume)Ordered By: Russ Zamora on 11-06-2023 IgA [Mass/Vol] 311 mg/dL 61-437 [facility] Serum or plasma IgG measurem ent (mass/volume)Ordered By: Russ Zamora on 11-06-2023 IgG [Mass/Vol] 1529 mg/dL 603-1613 [facility] Serum or plasma beta globuli n measurement by electrophoresis (mass/volume)Ordered By: Russ Zamora on 11-06-2023 Beta globulin Elph [Mass/Vol] 1.0 g/dL 0.7-1.3 [facility] Serum or plasma calcium kingsley urement (mass/volume)Ordered By: Russ Zamora on 11-06-2023 Calcium [Mass/Vol] 9.0 mg/dL 8.5-10.1 [facility] Serum or plasma creatinine m easurement (mass/volume)Ordered By: Russ Zamora on 11-06-2023 Creatinine [Mass/Vol] 1.96 mg/dL 0.70-1.30 [facility] Comment on above: The validity of the calculated GFR & GFRAA in patients over 70 years has not been determined. Clinical correlation is essential. Serum or plasma gamma globul in measurement by electrophoresis (mass/volume)Ordered By: Russ Zamora on 11-06-2023 Gamma globulin Elph [Mass/Vol] 1.8 g/dL 0.4-1.8 [facility] Serum or plasma immunoelectr ophoresis interpretation (nominal result)Ordered By: Russ Zamora on 11-06-2023 Interpretation IEP [Interp] Comment . [facility] Comment on above: No monoclonality det ected. Serum or plasma immunoglobul in kappa light chains measurement (mass/volume)Ordered By: Russ Zamora on 11-06-2023 Immunoglobulin light chains.kappa [Mass/Vol] 100.3 mg/L High 3.3-19.4 [facility] Serum or plasma urea nitroge n measurement (mass/volume)Ordered By: Russ Zamora on 11-06-2023 Urea nitrogen [Mass/Vol] 43 mg/dL 7-18 [facility] Serum or plasma uric acid me asurement (mass/volume)Ordered By: Russ Zamora on 11-06-2023 Urate [Mass/Vol] 6.6 mg/dL 3.5-7.2 [facility] Comment on above: The drugs N-Acetylcy steine and Metamizole may falsely depress this assay. Thin prep Papanicolaou smear with manual screeningOrdered By: Russ Sera on 11-06-2023 Thin prep Papanicolaou smear with manual screening 3.2 g/dL 3.2-5.0 [facility] Thin prep Papanicolaou smear with manual screening 15 U/L 15-37 [facility] Thin prep Papanicolaou smear with manual screening 6 5-15 [facility] Thin prep Papanicolaou smear with manual screening 0.8 0.7-1.7 [facility] Total protein bloodOrdered B y: Russ Walls on 11-06-2023 Protein [Mass/Vol] 7.6 g/dL 6.0-8.5 [facility] Basophil percentageOrdered B y: Russ [facility] on 10-12-2023 Creatinine [Mass/Vol] 1.5 mg/dL 0.70-1.30 [facility] Laboratory - Chemistry and C hemistry - challengeOrdered By: Russ Zamora on 10-12-2023 GFR/1.73 sq M.predicted among non-blacks MDRD (S/P/Bld) [Vol rate/Area] 49.0000 mL/min/{1.73_m2} >60 [facility] Absolute lymphocyte countOrd ered By: Leslie Arriaga on 07-26-2023 Lymphocytes Auto (Unsp spec) [#/Vol] 1.22 10*3/uL 0.83-4.51 [facility] Assessment of wrist artery p atency prior to arterial punctureOrdered By: Lorie Mart on 07-26-2023 Arterial patency Wrist artery --pre arterial puncture Positive [facility] Base excessOrdered By: Obed Mart on 07-26-2023 Base excess Calc (BldV) [Moles/Vol] -1 mmol/L -2-2 [facility] Basophil percentageOrdered B y: Leslie Arriaga on 07-26-2023 Basophils/100 WBC (Bld) 0.7 % 0-1 [facility] Chloride [Moles/Vol] 105 mmol/L 98-107 [facility] Eosinophils/100 WBC (Bld) 1.7 % 0-5 [facility] Glucose [Mass/Vol] 99 mg/dL 74-106 [facility] Neutrophils (Bld) [#/Vol] 9.0 10*3/uL 2.0-7.7 [facility] Neutrophils/100 WBC (Bld) 76.3 % 47-70 [facility] Potassium [Moles/Vol] 4.8 mmol/L 3.5-5.1 [facility] Sodium [Moles/Vol] 135 mmol/L 136-145 [facility] WBC (Bld) [#/Vol] 11.7 10*3/uL 4.4-11.0 [facility] Basophil percentageOrdered B y: Lorie Mart on 07-26-2023 Basophil percentage 24.8 mmol/L 22-26 [facility] Basophils/100 WBC (Bld) 95 % 95-99 W [facility] Blood erythrocytes count (nu mber/volume)Ordered By: Leslie Arriaga on 07-26-2023 RBC (Bld) [#/Vol] 4.50 10*6/uL 4.6-6.2 [facility] Blood hemoglobin measurement (mass/volume)Ordered By: Leslie Arriaga on 07-26-2023 Hemoglobin (Bld) [Mass/Vol] 12.5 g/dL 13.0-16.5 [facility] Blood lymphocytes/100 leukoc ytesOrdered By: Leslie Arriaga on 07-26-2023 Lymphocytes/100 WBC (Bld) 10.4 % 19-41 [facility] Blood monocytes/100 leukocyt esOrdered By: Leslie Arriaga on 07-26-2023 Monocytes/100 WBC (Bld) 10.2 % 0-10 W [facility] Blood platelet mean volumeOr dered By: Leslie Arriaga on 07-26-2023 Platelet mean volume (Bld) [Entitic vol] 10.6 fL 6.2-12.0 [facility] CO2 (BldA) [Partial pressure ]Ordered By: Lorie Mart on 07-26-2023 CO2 (Bld) [Partial pressure] 42.6 mm[Hg] 35-45 [facility] Determination of erythrocyte mean corpuscular volume (MCV)Ordered By: Leslie Arriaga on 07-26-2023 MCV (RBC) [Entitic vol] 87.6 fL 80-94 W [facility] Hematocrit Auto (Bld) [Volum e fraction]Ordered By: Leslie Arriaga on 07-26-2023 Hematocrit (Bld) [Volume fraction] 39.4 % 40-54 [facility] Laboratory - Chemistry and C hemistry - challengeOrdered By: Leslie Arriaga on 07-26-2023 CO2 [Moles/Vol] 28.0 mmol/L 21.0-32.0 [facility] Natriuretic peptide B (Bld) [Mass/Vol] 233.5 pg/mL 0-100 [facility] Urea nitrogen/Creatinine [Mass ratio] 25.4 mg/mg 10-20 [facility] Laboratory - Hematology and Cell countsOrdered By: Leslie Arriaga on 07-26-2023 Erythrocyte distribution width (RBC) [Entitic vol] 52.0 fL 35.1-43.9 [facility] Erythrocyte distribution width (RBC) [Ratio] 16.3 % 11.6-14.6 [facility] Immature granulocytes/100 WBC (Bld) 0.700 % 0.0-0.9 [facility] Comment on above: IG% - Immature Granu locytes (promyelocytes, myelocytes and metamyelocytes) > 1% indicates that a LEFT SHIFT is Present. MCH (RBC) [Entitic mass] 27.8 pg 27.0-32.0 [facility] Nucleated RBC/100 WBC (Bld) [Ratio] 0 % 0-5 [facility] MCHC Auto (RBC) [Mass/Vol]Or dered By: Leslie Arriaga on 07-26-2023 MCHC (RBC) [Mass/Vol] 31.7 g/dL 32-36 [facility] No Panel InformationOrdered By: Leslie Arriaga on 07-26-2023 Estimated GFR (MDRD) Amer 40 mL/min >60 [facility] Comment on above: GFR Calc Estimated GFR (MDRD) Non-Af Amer 33 mL/min >60 [facility] Comment on above: Non- GFR Calc No Panel InformationOrdered By: Lorie Mart on 07-26-2023 Blood Gas Sample Site R Radial [facility] Blood Gas Specimen Type ART W [facility] Blood Gas Total CO2 26 mmol/L [facility] Blood Gas Vent Mode Not entered [facility] Oxygen Delivery Device [id number] [facility] Oxygen (BldA) [Partial press ure]Ordered By: Lorie Mart on 07-26-2023 Oxygen (Bld) [Partial pressure] 77 mmHG 75-100 [facility] Platelets bldOrdered By: Markus Arriaga on 07-26-2023 Platelets (Bld) [#/Vol] 264 10*3/uL 150-450 [facility] Serum or plasma calcium [place] urement (mass/volume)Ordered By: Leslie Arriaga on 07-26-2023 Calcium [Mass/Vol] 9.3 mg/dL 8.5-10.1 [facility] Serum or plasma creatinine m easurement (mass/volume)Ordered By: Leslie Arriaga on 07-26-2023 Creatinine [Mass/Vol] 2.09 mg/dL 0.70-1.30 [facility] Comment on above: The validity of the calculated GFR & GFRAA in patients over 70 years has not been determined. Clinical correlation is essential. Serum or plasma urea nitroge n measurement (mass/volume)Ordered By: Leslie Arriaga on 07-26-2023 Urea nitrogen [Mass/Vol] 53 mg/dL 7-18 [facility] Thin prep Papanicolaou smear with manual screeningOrdered By: Leslie Arriaga on 07-26-2023 Thin prep Papanicolaou smear with manual screening 2 5-15 [facility] pH measurementOrdered By: Pj Mart on 07-26-2023 pH (Unsp spec) 7.37 [pH] 7.35-7.45 [facility] Anaerobic cultureOrdered By: Joaquim Suárez on 06-22-2023 Bacteria identified Anaer cx Nom (Unsp spec) No anaerobic bacteria isolated. [facility] Bacteria identified Cx Nom ( Wound)Ordered By: Joaquim Suárez on 06-22-2023 Wound Culture Staphylococcus epidermidis [facility] Wound Culture Corynebacterium jeikeium [facility] Fungus cultureOrdered By: Flores Suárez on 06-22-2023 Fungus identified Cx Nom (Unsp spec) [facility] Gram stain for investigation of transfusion reactionOrdered By: Joaquim Suárez on 06-22-2023 Microscopic observation Gram stain Nom (Unsp spec) [facility] Glucose Glucometer (BldC) [M ass/Vol]Ordered By: Joaquim Suárez on 06-08-2023 Glucose [Mass/Vol] 72 mg/dL 74-106 [facility] Comment on above: MANAGEMENT OF PATIEN T CARE PER NURSING PROTOCOL Absolute lymphocyte countOrd ered By: Russ Zamora on 04-17-2023 Lymphocytes Auto (Unsp spec) [#/Vol] 1.02 10*3/uL 0.83-4.51 [facility] Basophil percentageOrdered B y: Russ Zamora on 04-17-2023 Basophils/100 WBC (Bld) 0.5 % 0-1 [facility] Bilirubin [Mass/Vol] 0.30 mg/dL 0.20-1.00 [facility] Comment on above: For patients on eltr ombopag therapy, use of Dimension Hydro TBIL is not recommended. Chloride [Moles/Vol] 102 mmol/L 98-107 [facility] Eosinophils/100 WBC (Bld) 2.6 % 0-5 [facility] Glucose [Mass/Vol] 209 mg/dL 74-106 [facility] Comment on above: Glucose result great er than or equal to 200 mg/dLsuggests DIABETES MELLITUS per A.D.A. criteria. LDH [Catalytic activity/Vol] 152 U/L 87-241 [facility] Neutrophils (Bld) [#/Vol] 6.0 10*3/uL 2.0-7.7 [facility] Neutrophils/100 WBC (Bld) 74.2 % 47-70 [facility] Potassium [Moles/Vol] 4.3 mmol/L 3.5-5.1 [facility] Protein [Mass/Vol] 7.8 g/dL 6.4-8.2 [facility] Sodium [Moles/Vol] 136 mmol/L 136-145 [facility] WBC (Bld) [#/Vol] 8.1 10*3/uL 4.4-11.0 [facility] Blood erythrocytes count (nu mber/volume)Ordered By: Russ Zamora on 04-17-2023 RBC (Bld) [#/Vol] 4.45 10*6/uL 4.6-6.2 [facility] Blood hemoglobin measurement (mass/volume)Ordered By: Russ Zamora on 04-17-2023 Hemoglobin (Bld) [Mass/Vol] 12.3 g/dL 13.0-16.5 [facility] Blood lymphocytes/100 leukoc ytesOrdered By: Russ Zamora on 04-17-2023 Lymphocytes/100 WBC (Bld) 12.6 % 19-41 [facility] Blood monocytes/100 leukocyt esOrdered By: Russ Zamora on 04-17-2023 Monocytes/100 WBC (Bld) 9.4 % 0-10 W [facility] Blood platelet mean volumeOr dered By: Russ Zamora on 04-17-2023 Platelet mean volume (Bld) [Entitic vol] 9.5 fL 6.2-12.0 [facility] Determination of erythrocyte mean corpuscular volume (MCV)Ordered By: Russ Zamora on 04-17-2023 MCV (RBC) [Entitic vol] 89.9 fL 80-94 W [facility] Hematocrit Auto (Bld) [Volum e fraction]Ordered By: Russ Zamora on 04-17-2023 Hematocrit (Bld) [Volume fraction] 40.0 % 40-54 [facility] Laboratory - Chemistry and C hemistry - challengeOrdered By: Russ Zamora on 04-17-2023 ALP [Catalytic activity/Vol] 58 U/L 45-117 [facility] ALT [Catalytic activity/Vol] 21 U/L 16-61 [facility] CO2 [Moles/Vol] 27.0 mmol/L 21.0-32.0 [facility] Globulin (S) [Mass/Vol] 4.5 g/dL 2.2-4.2 W [facility] Urea nitrogen/Creatinine [Mass ratio] 20.3 mg/mg 10-20 [facility] Laboratory - Hematology and Cell countsOrdered By: Russ Zamora on 04-17-2023 Erythrocyte distribution width (RBC) [Entitic vol] 54.4 fL 35.1-43.9 [facility] Erythrocyte distribution width (RBC) [Ratio] 16.5 % 11.6-14.6 [facility] Immature granulocytes/100 WBC (Bld) 0.700 % 0.0-0.9 [facility] Comment on above: IG% - Immature Granu locytes (promyelocytes, myelocytes and metamyelocytes) > 1% indicates that a LEFT SHIFT is Present. MCH (RBC) [Entitic mass] 27.6 pg 27.0-32.0 [facility] Nucleated RBC/100 WBC (Bld) [Ratio] 0 % 0-5 [facility] MCHC Auto (RBC) [Mass/Vol]Or dered By: Russ Zamora on 04-17-2023 MCHC (RBC) [Mass/Vol] 30.8 g/dL 32-36 [facility] No Panel InformationOrdered By: Russ Zamora on 04-17-2023 Estimated Creatinine Clearance Calc 29.38 ml/min [facility] Estimated GFR (MDRD) Amer 45 mL/min >60 [facility] Comment on above: GFR Calc Estimated GFR (MDRD) Non-Af Amer 37 mL/min >60 [facility] Comment on above: Non- GFR Calc Platelets bldOrdered By: Frantz Zamora on 04-17-2023 Platelets (Bld) [#/Vol] 214 10*3/uL 150-450 [facility] Serum or plasma albumin [place] urement (mass/volume)Ordered By: Russ Zamora on 04-17-2023 Albumin [Mass/Vol] 3.3 g/dL 3.2-5.0 [facility] Serum or plasma albumin/glob ulin mass ratioOrdered By: Russ Zamora on 04-17-2023 Albumin/Globulin [Mass ratio] 0.7 {ratio} 0.9-2.4 [facility] Serum or plasma calcium [place] urement (mass/volume)Ordered By: Russ Zamora on 04-17-2023 Calcium [Mass/Vol] 9.1 mg/dL 8.5-10.1 [facility] Serum or plasma creatinine m easurement (mass/volume)Ordered By: Russ Zamora on 04-17-2023 Creatinine [Mass/Vol] 1.87 mg/dL 0.70-1.30 [facility] Comment on above: The validity of the calculated GFR & GFRAA in patients over 70 years has not been determined. Clinical correlation is essential. Serum or plasma urea nitroge n measurement (mass/volume)Ordered By: Russ Zamora on 04-17-2023 Urea nitrogen [Mass/Vol] 38 mg/dL 7-18 [facility] Thin prep Papanicolaou smear with manual screeningOrdered By: Russ Zamora on 04-17-2023 Thin prep Papanicolaou smear with manual screening 16 U/L 15-37 [facility] Thin prep Papanicolaou smear with manual screening 7 5-15 [facility] Basophil percentageOrdered B y: Russ Zamora on 04-10-2023 Creatinine [Mass/Vol] 1.1 mg/dL 0.70-1.30 [facility] No Panel InformationOrdered By: Russ Zamora on 04-10-2023 Bedside Estimated GFR (eGFR) > 60.0000 mL/min >60 [facility] Anaerobic cultureOrdered By: Bonny Glynn on 01-13-2023 Bacteria identified Anaer cx Nom (Unsp spec) No anaerobic bacteria isolated. [facility] Bacteria identified Cx Nom ( Wound)Ordered By: Bonny Glynn on 01-11-2023 Wound Culture St[facility] Gram stain for investigation of transfusion reactionOrdered By: Bonny Glynn on 01-09-2023 Microscopic observation Gram stain Nom (Unsp spec) [facility] Anaerobic cultureOrdered By: Bonny Glynn on 01-08-2023 Bacteria identified Anaer cx Nom (Unsp spec) No anaerobic bacteria isolated. [facility] Bacteria identified Cx Nom ( Wound)Ordered By: Bonny Glynn on 01-08-2023 Wound Culture Staphylococcus [facility] Gram stain for investigation of transfusion reactionOrdered By: Bonny Glynn on 01-08-2023 Microscopic observation Gram stain Nom (Unsp spec) [facility] Laboratory - Microbiology an d Antimicrobial susceptibilityOrdered By: Dr. Ochoa on 01-05-2023 Bacteria identified Cx Nom (Bld) No growth in 5 days. [facility] Culture, urineOrdered By: Dr Marianna Ochoa on 01-02-2023 Bacteria identified Cx Nom (U) Culture exhibits no growth. [facility] Influenza virus A and B and SARS-CoV-2 (COVID-19) Ag panel - Upper respiratory specimOrdered By: Dr. Ochoa on 12-31-2022 SARS-CoV-2 & FLU Antigen (Rapid) Influenzae A [facility] Absolute lymphocyte countOrd ered By: Dr. Ochoa on 12-30-2022 Lymphocytes Auto (Unsp spec) [#/Vol] 0.68 10*3/uL 0.83-4.51 [facility] Basophil percentageOrdered B y: Dr. Ochoa on 12-30-2022 Basophil percentage 0-5 SEEN /hpf 0-5 [facility] Basophils/100 WBC (Bld) 0.5 % 0-1 W [facility] Bilirubin [Mass/Vol] 0.50 mg/dL 0.20-1.00 [facility] Comment on above: For patients on eltr ombopag therapy, use of Dimension Hydro TBIL is not recommended. Chloride [Moles/Vol] 102 mmol/L 98-107 [facility] Eosinophils/100 WBC (Bld) 0.2 % 0-5 [facility] Glucose [Mass/Vol] 119 mg/dL 74-106 [facility] Comment on above: Fasting Glucose resu lt from 100 to 125 mg/dL suggests IMPAIRED HOMEOSTASIS per A.D.A. criteria. Lactate [Moles/Vol] 1.4 mmol/L 0.4-2.0 [facility] Neutrophils (Bld) [#/Vol] 8.8 10*3/uL 2.0-7.7 [facility] Neutrophils/100 WBC (Bld) 83.3 % 47-70 [facility] Potassium [Moles/Vol] 5.2 mmol/L 3.5-5.1 [facility] Protein [Mass/Vol] 8.2 g/dL 6.4-8.2 [facility] Sodium [Moles/Vol] 134 mmol/L 136-145 [facility] WBC (Bld) [#/Vol] 10.6 10*3/uL 4.4-11.0 [facility] Bilirubin Test strip Ql (U)O rdered By: Dr. Ochoa on 12-30-2022 Bilirubin Ql (U) Negative Negative [facility] Blood erythrocytes count (nu mber/volume)Ordered By: Dr. Ochoa on 12-30-2022 RBC (Bld) [#/Vol] 4.36 10*6/uL 4.6-6.2 [facility] Blood hemoglobin measurement (mass/volume)Ordered By: Dr. Ochoa on 12-30-2022 Hemoglobin (Bld) [Mass/Vol] 12.1 g/dL 13.0-16.5 [facility] Blood lymphocytes/100 leukoc ytesOrdered By: Dr. Ochoa on 12-30-2022 Lymphocytes/100 WBC (Bld) 6.4 % 19-41 [facility] Blood monocytes/100 leukocyt esOrdered By: Dr. Ochoa on 12-30-2022 Monocytes/100 WBC (Bld) 9.1 % 0-10 W [facility] Blood platelet mean volumeOr dered By: Dr. Ochoa on 12-30-2022 Platelet mean volume (Bld) [Entitic vol] 10.2 fL 6.2-12.0 [facility] Culture, urineOrdered By: Chino Ochoa on 12-30-2022 Bacteria identified Cx Nom (U) Culture exhibits no growth. [facility] Determination of erythrocyte mean corpuscular volume (MCV)Ordered By: Dr. Ocoha on 12-30-2022 MCV (RBC) [Entitic vol] 87.2 fL 80-94 W [facility] Hematocrit Auto (Bld) [Volum e fraction]Ordered By: Dr. Ochoa on 12-30-2022 Hematocrit (Bld) [Volume fraction] 38.0 % 40-54 [facility] INR in Blood by Coagulation assayOrdered By: Dr. Ochoa on 12-30-2022 INR Coag (Bld) [Relative time] 1.3 {INR} [facility] Influenza virus A and B and SARS-CoV-2 (COVID-19) Ag panel - Upper respiratory specimOrdered By: Chris Ochoa on 12-30-2022 SARS-CoV-2 & FLU Antigen (Rapid) Influenzae A [facility] Ketones Test strip Ql (U)Ord ered By: Dr. Ochoa on 12-30-2022 Ketones Ql (U) Negative Negative [facility] Laboratory - Chemistry and C hemistry - challengeOrdered By: Dr. Ochoa on 12-30-2022 ALP [Catalytic activity/Vol] 53 U/L 45-117 [facility] ALT [Catalytic activity/Vol] 22 U/L 16-61 [facility] CO2 [Moles/Vol] 25.0 mmol/L 21.0-32.0 [facility] Globulin (S) [Mass/Vol] 4.7 g/dL 2.2-4.2 W [facility] Urea nitrogen/Creatinine [Mass ratio] 22.0 mg/mg 10-20 [facility] Laboratory - CoagulationOrde red By: Dr. Ochoa on 12-30-2022 aPTT Coag (Bld) [Time] 38.9 s 24.1-36.2 [facility] PT Coag (PPP) [Time] 15.8 s 11.7-14.9 [facility] Laboratory - Hematology and Cell countsOrdered By: Dr. Ochoa on 12-30-2022 Erythrocyte distribution width (RBC) [Entitic vol] 50.5 fL 35.1-43.9 [facility] Erythrocyte distribution width (RBC) [Ratio] 15.9 % 11.6-14.6 [facility] Immature granulocytes/100 WBC (Bld) 0.500 % 0.0-0.9 [facility] Comment on above: IG% - Immature Granu locytes (promyelocytes, myelocytes and metamyelocytes) > 1% indicates that a LEFT SHIFT is Present. MCH (RBC) [Entitic mass] 27.8 pg 27.0-32.0 [facility] Nucleated RBC/100 WBC (Bld) [Ratio] 0 % 0-5 [facility] Laboratory - Microbiology an d Antimicrobial susceptibilityOrdered By: Chris Ochoa on 12-30-2022 Bacteria identified Cx Nom (Bld) No growth in 5 days. [facility] MCHC Auto (RBC) [Mass/Vol]Or dered By: Dr. Ochoa on 12-30-2022 MCHC (RBC) [Mass/Vol] 31.8 g/dL 32-36 [facility] Mucus LM Ql (Urine sed)Order ed By: Dr. Ochoa on 12-30-2022 Mucus Ql (Urine sed) 0 SEEN /hpf [facility] Nitrite Test strip Ql (U)Ord ered By: Dr. Ochoa on 12-30-2022 Nitrite Ql (U) Negative Negative [facility] No Panel InformationOrdered By: Dr. Ochoa on 12-30-2022 Estimated Creatinine Clearance Calc 27.91 ml/min [facility] Estimated GFR (MDRD) Amer 42 mL/min >60 [facility] Comment on above: GFR Calc Estimated GFR (MDRD) Non-Af Amer 35 mL/min >60 [facility] Comment on above: Non- GFR Calc Platelets bldOrdered By: Dr. Ochoa on 12-30-2022 Platelets (Bld) [#/Vol] 210 10*3/uL 150-450 [facility] Protein Test strip Ql (U)Ord ered By: Dr. Ochoa on 12-30-2022 Protein Ql (U) 100 mg/dl Negative [facility] Serum or plasma albumin [place] urement (mass/volume)Ordered By: Dr. Ochoa on 12-30-2022 Albumin [Mass/Vol] 3.5 g/dL 3.2-5.0 [facility] Serum or plasma albumin/glob ulin mass ratioOrdered By: Dr. Ochoa on 12-30-2022 Albumin/Globulin [Mass ratio] 0.7 {ratio} 0.9-2.4 [facility] Serum or plasma calcium [place] urement (mass/volume)Ordered By: Dr. Ochoa on 12-30-2022 Calcium [Mass/Vol] 9.2 mg/dL 8.5-10.1 [facility] Serum or plasma creatinine m easurement (mass/volume)Ordered By: Dr. Ochoa on 12-30-2022 Creatinine [Mass/Vol] 2.00 mg/dL 0.70-1.30 [facility] Comment on above: The validity of the calculated GFR & GFRAA in patients over 70 years has not been determined. Clinical correlation is essential. Serum or plasma urea nitroge n measurement (mass/volume)Ordered By: Dr. Ochoa on 12-30-2022 Urea nitrogen [Mass/Vol] 44 mg/dL 7-18 [facility] Squamous epithelial cells de tection in urine sediment by light microscopyOrdered By: Dr. Ochoa on 12-30-2022 Epithelial cells.squamous LM Ql (Urine sed) 0 SEEN /hpf 0-5 [facility] Thin prep Papanicolaou smear with manual screeningOrdered By: Dr. Ochoa on 12-30-2022 Thin prep Papanicolaou smear with manual screening 22 U/L 15-37 [facility] Thin prep Papanicolaou smear with manual screening 7 5-15 [facility] Urine blood detectionOrdered By: Dr. Ochoa on 12-30-2022 RBC Ql (U) 25 /ul Negative [facility] RBC Ql (U) 0 SEEN /hpf 0-5 [facility] Urine clarityOrdered By: Dr. Ochoa on 12-30-2022 Clarity (U) Clear Clear [facility] Urine color determinationOrd ered By: Dr. Ochoa on 12-30-2022 Color (U) Yellow Yellow [facility] Urine glucose detectionOrder ed By: Dr. Ochoa on 12-30-2022 Glucose Ql (U) Normal mg/dl Normal [facility] Urine leukocyte esterase det ection by dipstickOrdered By: Dr. Ochoa on 12-30-2022 Leukocyte esterase Test strip Ql (U) 25 /ul Negative [facility] Urine pHOrdered By: Dr. Amy chowdhury on 12-30-2022 pH (U) 7.0 [pH] 5.0 - 8.0 [facility] Urine sediment bacteria coun t by microscopy (number/high power field)Ordered By: Dr. Ochoa on 12-30-2022 Bacteria LM.HPF (Urine sed) [#/Area] 0 /[HPF] None Seen [facility] Urine specific gravity measu rementOrdered By: Dr. Ochoa on 12-30-2022 Specific gravity (U) [Rel density] 1.005 1.002-1.03 0 [facility] Urobilinogen Auto test strip Ql (U)Ordered By: Dr. Ochoa on 12-30-2022 Urobilinogen Ql (U) Normal mg/dl Normal [facility] Absolute lymphocyte countOrd ered By: Dr. Zamora on 10-16-2022 Lymphocytes Auto (Unsp spec) [#/Vol] 1.25 10*3/uL 0.83-4.51 [facility] Basophil percentageOrdered B y: Dr. Zamora on 10-16-2022 Basophils/100 WBC (Bld) 0.6 % 0-1 W [facility] Bilirubin [Mass/Vol] 0.30 mg/dL 0.20-1.00 [facility] Comment on above: For patients on eltr ombopag therapy, use of Dimension Hydro TBIL is not recommended. Chloride [Moles/Vol] 106 mmol/L 98-107 [facility] Eosinophils/100 WBC (Bld) 1.4 % 0-5 [facility] Glucose [Mass/Vol] 225 mg/dL 74-106 [facility] Comment on above: Glucose result great er than or equal to 200 mg/dLsuggests DIABETES MELLITUS per A.D.A. criteria. LDH [Catalytic activity/Vol] 135 U/L 87-241 [facility] Neutrophils (Bld) [#/Vol] 5.1 10*3/uL 2.0-7.7 [facility] Neutrophils/100 WBC (Bld) 70.2 % 47-70 [facility] Potassium [Moles/Vol] 4.5 mmol/L 3.5-5.1 [facility] Protein [Mass/Vol] 7.8 g/dL 6.4-8.2 [facility] Sodium [Moles/Vol] 139 mmol/L 136-145 [facility] WBC (Bld) [#/Vol] 7.3 10*3/uL 4.4-11.0 [facility] Blood erythrocytes count (nu mber/volume)Ordered By: Dr. Zamora on 10-16-2022 RBC (Bld) [#/Vol] 3.94 10*6/uL 4.6-6.2 [facility] Blood hemoglobin measurement (mass/volume)Ordered By: Dr. Zamora on 10-16-2022 Hemoglobin (Bld) [Mass/Vol] 11.5 g/dL 13.0-16.5 [facility] Blood lymphocytes/100 leukoc ytesOrdered By: Dr. Zamora on 10-16-2022 Lymphocytes/100 WBC (Bld) 17.2 % 19-41 [facility] Blood monocytes/100 leukocyt esOrdered By: Dr. Zamora on 10-16-2022 Monocytes/100 WBC (Bld) 9.8 % 0-10 W [facility] Blood platelet mean volumeOr dered By: Dr. Zamora on 10-16-2022 Platelet mean volume (Bld) [Entitic vol] 9.9 fL 6.2-12.0 [facility] Determination of erythrocyte mean corpuscular volume (MCV)Ordered By: Dr. Zamora on 10-16-2022 MCV (RBC) [Entitic vol] 91.1 fL 80-94 W [facility] Hematocrit Auto (Bld) [Volum e fraction]Ordered By: Dr. Zamora on 10-16-2022 Hematocrit (Bld) [Volume fraction] 35.9 % 40-54 [facility] Laboratory - Chemistry and C hemistry - challengeOrdered By: Dr. Zamora on 10-16-2022 ALP [Catalytic activity/Vol] 52 U/L 45-117 [facility] ALT [Catalytic activity/Vol] 19 U/L 16-61 [facility] CO2 [Moles/Vol] 26.0 mmol/L 21.0-32.0 [facility] Globulin (S) [Mass/Vol] 4.5 g/dL 2.2-4.2 W [facility] Urea nitrogen/Creatinine [Mass ratio] 17.5 mg/mg 10-20 [facility] Laboratory - Hematology and Cell countsOrdered By: Dr. Zamora on 10-16-2022 Erythrocyte distribution width (RBC) [Entitic vol] 50.4 fL 35.1-43.9 [facility] Erythrocyte distribution width (RBC) [Ratio] 15.2 % 11.6-14.6 [facility] Immature granulocytes/100 WBC (Bld) 0.800 % 0.0-0.9 [facility] Comment on above: IG% - Immature Granu locytes (promyelocytes, myelocytes and metamyelocytes) > 1% indicates that a LEFT SHIFT is Present. MCH (RBC) [Entitic mass] 29.2 pg 27.0-32.0 [facility] Nucleated RBC/100 WBC (Bld) [Ratio] 0 % 0-5 [facility] MCHC Auto (RBC) [Mass/Vol]Or dered By: Dr. Zamora on 10-16-2022 MCHC (RBC) [Mass/Vol] 32.0 g/dL 32-36 [facility] No Panel InformationOrdered By: Dr. Zamora on 10-16-2022 Estimated GFR (MDRD) Amer 45 mL/min >60 [facility] Comment on above: GFR Calc Estimated GFR (MDRD) Non-Af Amer 37 mL/min >60 [facility] Comment on above: Non- GFR Calc Platelets bldOrdered By: Dr. Zamora on 10-16-2022 Platelets (Bld) [#/Vol] 193 10*3/uL 150-450 [facility] Serum or plasma albumin kingsley urement (mass/volume)Ordered By: Dr. Zamora on 10-16-2022 Albumin [Mass/Vol] 3.3 g/dL 3.2-5.0 [facility] Serum or plasma albumin/glob ulin mass ratioOrdered By: Dr. Zamora on 10-16-2022 Albumin/Globulin [Mass ratio] 0.7 {ratio} 0.9-2.4 [facility] Serum or plasma calcium kingsley urement (mass/volume)Ordered By: Dr. Zamora on 10-16-2022 Calcium [Mass/Vol] 9.3 mg/dL 8.5-10.1 [facility] Serum or plasma creatinine m easurement (mass/volume)Ordered By: Dr. Zamora on 10-16-2022 Creatinine [Mass/Vol] 1.89 mg/dL 0.70-1.30 [facility] Comment on above: The validity of the calculated GFR & GFRAA in patients over 70 years has not been determined. Clinical correlation is essential. Serum or plasma urea nitroge n measurement (mass/volume)Ordered By: Dr. Zamora on 10-16-2022 Urea nitrogen [Mass/Vol] 33 mg/dL 7-18 [facility] Thin prep Papanicolaou smear with manual screeningOrdered By: Dr. Zamora on 10-16-2022 Thin prep Papanicolaou smear with manual screening 17 U/L 15-37 [facility] Thin prep Papanicolaou smear with manual screening 7 5-15 [facility] Basophil percentageOrdered B y: Dr. Zamora on 10-09-2022 Creatinine [Mass/Vol] 1.4 mg/dL 0.70-1.30 [facility] Laboratory - Chemistry and C hemistry - challengeOrdered By: Dr. Zamora on 10-09-2022 GFR/1.73 sq M.predicted among non-blacks MDRD (S/P/Bld) [Vol rate/Area] 52.0000 mL/min/{1.73_m2} >60 [facility] Culture, urineOrdered By: St gillian Glynn on 10-04-2022 Bacteria identified Cx Nom (U) Staphylococcus epidermidis [facility] Bacteria identified Cx Nom (U) GNR lactose profile saw operator [facility] Bilirubin Test strip Ql (U)O rdered By: Bonny Glynn on 10-02-2022 Bilirubin Ql (U) Negative Negative [facility] Ketones Test strip Ql (U)Ord ered By: Bonny Glynn on 10-02-2022 Ketones Ql (U) Negative Negative [facility] Nitrite Test strip Ql (U)Ord ered By: Bonny Glynn on 10-02-2022 Nitrite Ql (U) Positive Negative [facility] Protein Test strip Ql (U)Ord ered By: Bonny Glynn on 10-02-2022 Protein Ql (U) 100 mg/dl Negative [facility] Urine blood detectionOrdered By: Bonny Glynn on 10-02-2022 RBC Ql (U) 25 /ul Negative [facility] Urine clarityOrdered By: Ysabel Glynn on 10-02-2022 Clarity (U) Cloudy Clear [facility] Urine color determinationOrd ered By: oBnny Glynn on 10-02-2022 Color (U) Yellow Yellow [facility] Urine glucose detectionOrder ed By: Bonny Glynn on 10-02-2022 Glucose Ql (U) 50 mg/dl Normal [facility] Urine leukocyte esterase det ection by dipstickOrdered By: Bonny Glynn on 10-02-2022 Leukocyte esterase Test strip Ql (U) 500 /ul Negative [facility] Urine pHOrdered By: Bonny orosco on 10-02-2022 pH (U) 6.0 [pH] 5.0 - 8.0 [facility] Urine specific gravity measu rementOrdered By: Bonny Glynn on 10-02-2022 Specific gravity (U) [Rel density] 1.010 1.002-1.03 0 [facility] Urobilinogen Auto test strip Ql (U)Ordered By: Bonny Glynn on 10-02-2022 Urobilinogen Ql (U) Normal mg/dl Normal [facility] Adriana 07-28-2022 CNPN Telephone ([facility]) -- PEDRO HILLMAN ([id number]) 1945 M Date Time Provider Department 07/28/22 STEVEN MELGAR ANTWON During your visit today, we recorded the following information about you: Steven Melgar APRN.SHANI 07/28/2022 1:45 PM Signed In reviewing patient's chart I do not see that he has had any follow up done in regards to his actionable chest xray finding. I left a message on patient's voicemail for him to call back and advise. Steven Melgar APRN.SHANI Ortiz Ma 08/04/2022 10:00 AM Signed [...] unspecified whether generalized*04/14/2014 Encounter Status:Closed by STEVEN MELGAR on 08/09/22 Normal [facility] Anaerobic cultureOrdered By: Bonny Glynn on 07-21-2022 Bacteria identified Anaer cx Nom (Unsp spec) No anaerobic bacteria isolated. [facility] Bacteria identified Cx Nom ( Wound)Ordered By: Bonny Glynn on 07-20-2022 Wound Culture Staphylococcus pseudintermediu [facility] Gram stain for investigation of transfusion reactionOrdered By: Bonny Glynn on 07-19-2022 Microscopic observation Gram stain Nom (Unsp spec) [facility] No Panel InformationOrdered By: Dr. Choi on 06-01-2022 Estimated GFR (MDRD) Amer 63 mL/min >60 [facility] Comment on above: GFR Calc Estimated GFR (MDRD) Non-Af Amer 52 mL/min >60 [facility] Comment on above: Non- GFR Calc Serum or plasma creatinine m easurement (mass/volume)Ordered By: Dr. Choi on 06-01-2022 Creatinine [Mass/Vol] 1.40 mg/dL 0.70-1.30 [facility] Comment on above: The validity of the calculated GFR & GFRAA in patients over 70 years has not been determined. Clinical correlation is essential. Basophil percentageon 2021 Basophil percentage < 0.9 mg/dL 0.70-1.30 [facility] Work Phone: No Panel Informationon 05-22 Bedside Estimated GFR (eGFR) > 60.0000 mL/min >60 [facility] Work Phone: Absolute lymphocyte counton 04-14-2022 Lymphocytes Auto (Unsp spec) [#/Vol] 0.64 10*3/uL 0.83-4.51 [facility] Work Phone: [phone] Basophil percentageon 2021 Basophil percentage 0 SEEN /hpf 0-5 [facility] Work Phone: Basophils/100 WBC (Bld) 0.3 % 0-1 W [facility] Work Phone: [phone] Bilirubin [Mass/Vol] 0.50 mg/dL 0.20-1.00 [facility] Work Phone: [phone] Comment on above: For patients on eltr ombopag therapy, use of Dimension Hydro TBIL is not recommended. Chloride [Moles/Vol] 103 mmol/L 98-107 [facility] Work Phone: Eosinophils/100 WBC (Bld) 0.5 % 0-5 [facility] Work Phone: [phone] Glucose [Mass/Vol] 46 mg/dL 74-106 [facility] Work Phone: Comment on above: Glucose result less than 50 mg/dL suggests HYPOGLYCEMIA. Neutrophils (Bld) [#/Vol] 5.0 10*3/uL 2.0-7.7 [facility] Work Phone: [phone] Neutrophils/100 WBC (Bld) 76.1 % 47-70 [facility] Work Phone: [phone] Potassium [Moles/Vol] 4.2 mmol/L 3.5-5.1 [facility] Work Phone: [phone] Protein [Mass/Vol] 8.2 g/dL 6.4-8.2 [facility] Work Phone: [phone] Sodium [Moles/Vol] 136 mmol/L 136-145 [facility] Work Phone: [phone] WBC (Bld) [#/Vol] 6.6 10*3/uL 4.4-11.0 [facility] Work Phone: [phone] Bilirubin Test strip Ql (U)o n 04-14-2022 Bilirubin Ql (U) Negative Negative [facility] Work Phone: [phone] Blood erythrocytes count (nu mber/volume)on 04-14-2022 RBC (Bld) [#/Vol] 5.00 10*6/uL 4.6-6.2 [facility] Work Phone: Blood hemoglobin measurement (mass/volume)on 04-14-2022 Hemoglobin (Bld) [Mass/Vol] 13.9 g/dL 13.0-16.5 [facility] Work Phone: Blood lymphocytes/100 leukoc yteson 04-14-2022 Lymphocytes/100 WBC (Bld) 9.7 % 19-41 [facility] Work Phone: Blood monocytes/100 leukocyt eson 04-14-2022 Monocytes/100 WBC (Bld) 12.3 % 0-10 W [facility] Work Phone: Blood platelet mean volumeon 04-14-2022 Platelet mean volume (Bld) [Entitic vol] 10.5 fL 6.2-12.0 [facility] Work Phone: Determination of erythrocyte mean corpuscular volume (MCV)on 04-14-2022 MCV (RBC) [Entitic vol] 86.4 fL 80-94 W [facility] Work Phone: Glucose Glucometer (BldC) [M ass/Vol]on 04-14-2022 Glucose [Mass/Vol] 113 mg/dL 74-106 [facility] Work Phone: Comment on above: MANAGEMENT OF PATIEN T CARE PER NURSING PROTOCOL Hematocrit Auto (Bld) [Volum e fraction]on 04-14-2022 Hematocrit (Bld) [Volume fraction] 43.2 % 40-54 [facility] Work Phone: INR in Blood by Coagulation assayon 04-14-2022 INR Coag (Bld) [Relative time] 1.1 {INR} [facility] Work Phone: Ketones Test strip Ql (U)on 04-14-2022 Ketones Ql (U) 5 mg/dl Negative [facility] Work Phone: Laboratory - Chemistry and C hemistry - challengeon 04-14-2022 ALP [Catalytic activity/Vol] 63 U/L 45-117 [facility] Work Phone: ALT [Catalytic activity/Vol] 29 U/L 16-61 [facility] Work Phone: CO2 [Moles/Vol] 25.0 mmol/L 21.0-32.0 [facility] Work Phone: [phone] Globulin (S) [Mass/Vol] 5.1 g/dL 2.2-4.2 W [facility] Work Phone: [phone] Urea nitrogen/Creatinine [Mass ratio] 37.6 mg/mg 10-20 [facility] Work Phone: [phone] Laboratory - Coagulationon 0 04-14-2022 PT Coag (PPP) [Time] 14.0 s 11.7-14.9 [facility] Work Phone: [phone] Laboratory - Hematology and Cell countson 04-14-2022 Erythrocyte distribution width (RBC) [Entitic vol] 49.0 fL 35.1-43.9 [facility] Work Phone: [phone] Erythrocyte distribution width (RBC) [Ratio] 15.4 % 11.6-14.6 [facility] Work Phone: [phone] Immature granulocytes/100 WBC (Bld) 1.100 % 0.0-0.9 [facility] Work Phone: [phone] Comment on above: IG% - Immature Granu locytes (promyelocytes, myelocytes and metamyelocytes) > 1% indicates that a LEFT SHIFT is Present. MCH (RBC) [Entitic mass] 27.8 pg 27.0-32.0 [facility] Work Phone: [phone] Nucleated RBC/100 WBC (Bld) [Ratio] 0 % 0-5 [facility] Work Phone: MCHC Auto (RBC) [Mass/Vol]on 04-14-2022 MCHC (RBC) [Mass/Vol] 32.2 g/dL 32-36 [facility] Work Phone: [phone] Mucus LM Ql (Urine sed)on Mucus Ql (Urine sed) 0 SEEN /hpf [facility] Work Phone: Nitrite Test strip Ql (U)on 04-14-2022 Nitrite Ql (U) Negative Negative [facility] Work Phone: No Panel Informationon 04-14 Estimated Creatinine Clearance Calc 35.56 ml/min [facility] Work Phone: Estimated GFR (MDRD) Amer 55 mL/min >60 [facility] Work Phone: Comment on above: GFR Calc Estimated GFR (MDRD) Non-Af Amer 46 mL/min >60 [facility] Work Phone: Comment on above: Non- GFR Calc Platelets bldon 04-14-2022 Platelets (Bld) [#/Vol] 293 10*3/uL 150-450 [facility] Work Phone: [phone] Platelets (Bld) [#/Vol] 287 10*3/uL 150-450 [facility] Work Phone: [phone] Protein Test strip Ql (U)on 04-14-2022 Protein Ql (U) 30 mg/dl Negative [facility] Work Phone: [phone] Serum or plasma albumin kingsley urement (mass/volume)on 04-14-2022 Albumin [Mass/Vol] 3.1 g/dL 3.2-5.0 [facility] Work Phone: [phone] Serum or plasma albumin/glob ulin mass ratioon 04-14-2022 Albumin/Globulin [Mass ratio] 0.6 {ratio} 0.9-2.4 [facility] Work Phone: [phone] Serum or plasma calcium kingsley urement (mass/volume)on 04-14-2022 Calcium [Mass/Vol] 9.9 mg/dL 8.5-10.1 [facility] Work Phone: [phone] Serum or plasma creatinine m easurement (mass/volume)on 04-14-2022 Creatinine [Mass/Vol] 1.57 mg/dL 0.70-1.30 [facility] Work Phone: Comment on above: The validity of the calculated GFR & GFRAA in patients over 70 years has not been determined. Clinical correlation is essential. Serum or plasma urea nitroge n measurement (mass/volume)on 04-14-2022 Urea nitrogen [Mass/Vol] 59 mg/dL 7-18 [facility] Work Phone: Squamous epithelial cells de tection in urine sediment by light microscopyon 04-14-2022 Epithelial cells.squamous LM Ql (Urine sed) 0-5 SEEN /hpf 0-5 [facility] Work Phone: Thin prep Papanicolaou smear with manual screeningon 04-14-2022 Thin prep Papanicolaou smear with manual screening 30 U/L 15-37 [facility] Work Phone: Thin prep Papanicolaou smear with manual screening 8 5-15 [facility] Work Phone: Urine blood detectionon 03-21 RBC Ql (U) Negative Negative [facility] Work Phone: RBC Ql (U) 0 SEEN /hpf 0-5 [facility] Work Phone: Urine clarityon 04-14-2022 Clarity (U) Clear Clear [facility] Work Phone: Urine color determinationon 04-14-2022 Color (U) Yellow Yellow [facility] Work Phone: Urine glucose detectionon Glucose Ql (U) Normal mg/dl Normal [facility] Work Phone: Urine leukocyte esterase det ection by dipstickon 04-14-2022 Leukocyte esterase Test strip Ql (U) 25 /ul Negative [facility] Work Phone: Urine pHon 04-14-2022 pH (U) 6.0 [pH] 5.0 - 8.0 [facility] Work Phone: Urine sediment bacteria coun t by microscopy (number/high power field)on 04-14-2022 Bacteria LM.HPF (Urine sed) [#/Area] 0 /[HPF] None Seen [facility] Work Phone: Urine specific gravity measu rementon 04-14-2022 Specific gravity (U) [Rel density] 1.010 1.002-1.03 0 [facility] Work Phone: Urobilinogen Auto test strip Ql (U)on 04-14-2022 Urobilinogen Ql (U) Normal mg/dl Normal [facility] Work Phone: Basophil percentageon 2021 Creatinine [Mass/Vol] 1.4 mg/dL 0.70-1.30 [facility] Work Phone: Laboratory - Chemistry and C hemistry - challengeon 04-12-2022 GFR/1.73 sq M.predicted among non-blacks MDRD (S/P/Bld) [Vol rate/Area] 50.0000 mL/min/{1.73_m2} >60 [facility] Work Phone: Adriana 04-06-2022 [facility] PEDRO HILLMAN ([id number]) 1945 M Date Time Provider Department 04/06/22 CARLOS WHELAN [facility] During your visit today, we recorded [...] rings a fast busy-try again later.Sigrid Monroe NIKKI Sigrid Monroe NIKKI 04/06/2022 6:48 PM Signed Still unable to reach patient and blocker and cutter contact lens is spouse with same number.Sigrid Mock 04/07/2022 5:49 PM Signed Unable to reach patient. Mailbox full/Mailbox not set up/ Number incorrect. Please try again later. Jenny Mock 04/08/2022 9:23 AM Signed left message on machine to give call back, different number from pharmacy. [phone]. Jenny Mock 04/08/2022 2:56 PM Signed Notified [...] Status:Closed by JENNY MOCK on 04/08/22 Normal [facility] Bacteria Ur Culton 2 Bacteria identified Cx Nom (U) [id number] Abnormal [facility] Comment on above: Order Comment: Speci men Type: URINE SPECIMEN Ordering Facility: [facility] Address: [address] [place] [phone] Result Comment: >=10 0,000 CFU/ml Streptococcus mitis-oralis group No further workup Performed By: #### 6 30-4 #### [facility] CLIA [id number] [address] [place] [address] [id number] [place] [address] [facility] CNOVon 04-05-2022 CNOV Office Visit ([facility] ) -- PEDRO HILLMAN ([id number]) 1945 M Date Time Provider Department 04/05/22 1:15 PM STEVEN MELGAR [facility] During your visit today, we recorded the following information about you: Temperature Pulse Respiration Blood pressure 101.6 degrees 76/minute 16/minute 122/76 Weight 87.1 kg Steven Melgar APRN.SAMPLE EXAMINER 04/05/2022 3:51 PM Signed Subjective HPI Pedro Melendez Jani is a 77 year old male who [...] Z20.822 - COVID WITH FLUA+B, ROUTINE Steven Melgar APRN.SHANI Melgar APRN.CNP 04/05/2022 2:27 PM Addendum ASSESSMENT/PLAN: 1. [...] up a (more content not included)... Normal [facility] 04-05-2022 [facility] Telephone ([facility]) -- PEDRO HILLMAN ([id number]) 1945 M Date Time Provider Department 04/05/22 STEVEN MELGAR [facility] During your visit today, we recorded the following information about you: Steven Melgar APRN.CNP 04/05/2022 2:59 PM Signed Radiology report faxed to patient's PCP Dr. Tonio Fajardo at [phone]. Confirmation of fax received. Patient was advised to call Dr. Fajardo today for a follow up appointment. Steven Melgar APRN.CNP Allergies As of Date: 04/05/2022 Noted [...] unspecified whether generalized*04/14/2014 Encounter Status:Closed by STEVEN MELGAR on 04/05/22 Normal [facility] No Panel InformationOrdered By: Ccf Provider on 04-05-2022 Radiology Result ACTIONABLE Abnormal [facility] Comment on above: This report contains [...] 2021 BILIRUBIN UA (POCT) Negative Negative [facility] CLARITY UA (POCT) Cloudy [facility] COLOR UA (POCT) Dark yellow [facility] d [facility] GLUCOSE UA (POCT) Negative Negative mg/dL [facility] HEMOGLOBIN/BLOOD UA (POCT) Small Abnormal Negative [facility] KETONE UA (POCT) Negative Negative mg/dL [facility] LEUKOCYTES UA (POCT) Large Abnormal Negative [facility] NITRITE UA (POCT) Negative Negative [facility] PH UA (POCT) 6.0 4.5 - 8.0 [facility] Protein Ql (U) 100 mg/dL Abnormal Negative mg/dL [facility] SPECIFIC GRAVITY UA (POCT) 1.020 1.005 - 1.030 [facility] UROBILINOGEN UA (POCT) 0.2 E.U./dL Umm l E.U./dL [facility] XR CHEST 2V FRONTAL/LATon XR [...] imaging findings can be found on the [facility] Bux180 Sharepoint site at: [email or web address] ng%20Incidental%20Findi ngs%20at%20Imaging/Forms/A llItems.aspx Chef Saucier: JONATHAN Transcribe Date/Time: Apr 05 2022 2:11P Dictated by : SANDEEP ORTIZ MD This examination was interpreted and the report reviewed and electronically signed by: SANDEEP ORTIZ MD on Apr 05 2022 2:13PM EST [id number] ACTIONABLE Invalid Interpretation Code [facility] XR Chest PA and LateralOrder ed By: [facility] Provider on 04-05-2022 Interpretation and review of laboratory results Abnormal [facility] XR Chest PA and Lateralon IMPRESSION: [...] imaging findings can be found on the [facility] [employer] Sharepoint site at: [email or web address] ng%20Incidental%20Findi ngs%20at%20Imaging/Forms/A llItems.aspx Chef Saucier: JONATHAN Transcribe Date/Time: Apr 05 2022 2:11P [...] the thoracic spine. DIVISION OF RADIOLOGY Provider, [facility] Harry [facility] - 04/05/2022 * * *Final Report* [...] be communicated with the ordering provider via [employer] staff message or phone message by [employer] Support Services within 2 business days of report finalization. Algorithms for management of incidental imaging findings can be found on the [facility] Intranet Sharepoint site at: [email or web address] ng%20Incidental%20Findi ngs%20at%20Imaging/Forms/A llItems.aspx Chef Saucier: JONATHAN Transcribe Date/Time: Apr 05 2022 2:11P Dictated by : SANDEEP ORTIZ MD This examination was interpreted and the report reviewed and electronically signed by: SANDEEP ORTIZ MD on Apr 05 2022 2:13PM EST [facility] Radiology Study observation (narrative) [facility] Anaerobic culture Bacteria identified Anaer cx Nom (Unsp spec) No anaerobic bacteria isolated. [facility] Work Phone: Bacteria identified Anaer cx Nom (Unsp spec) Anaerobic Culture Anaerobic cocci [facility] Work Phone: Bacteria identified Cx Nom ( Wound) Wound Culture Staphylococcus pseudintermediu [facility] Work Phone: Wound Culture Staphylococcus saprophyticus [facility] Work Phone: Gram stain for investigation of transfusion reaction Microscopic observation Gram stain Nom (Unsp spec) [facility] Work Phone: Vital Signs Date Time Vital Sign Value Performing Clinician Facility 05-04-2025 22:43-0400 Diastolic blood pressure 62 mm[Hg] Dr. Tonio Fajardo DO Work Phone: [facility] 05-04-2025 22:43-0400 Heart rate 99 /min Dr. Tonio Fajardo DO Work Phone: [facility] 05-04-2025 22:43-0400 Systolic blood pressure 143 mm[Hg] Dr. Tonio Fajardo DO Work Phone: [facility] 05-04-2025 22:34-0400 Inhaled oxygen flow rate 3 L/min Dr. Tonio Fajardo DO Work Phone: [facility] 05-04-2025 22:34-0400 SaO2% (BldA) [Mass fraction] 98 % Dr. Tonio Fajardo DO Work Phone: [facility] 05-04-2025 19:52-0400 Respiratory rate 16 /min Dr. Tonio Fajardo DO Work Phone: [facility] 05-04-2025 17:44-0400 Body temperature 97.2 [degF] Dr. Tonio Fajardo DO Work Phone: [facility] 05-04-2025 16:45-0400 Body temperature 97.3 [degF] Dr. Tonio Fajardo DO Work Phone: [facility] 05-04-2025 16:45-0400 Diastolic blood pressure 52 mm[Hg] Dr. Tonio Fajardo DO Work Phone: [facility] 05-04-2025 16:45-0400 Heart rate 101 /min Dr. Tonio Fajardo DO Work Phone: [facility] 05-04-2025 16:45-0400 Inhaled oxygen flow rate 3 L/min Dr. Tonio Fajardo DO Work Phone: [facility] 05-04-2025 16:45-0400 Respiratory rate 16 /min Dr. Tonio Fajardo DO Work Phone: [facility] 05-04-2025 16:45-0400 SaO2% (BldA) [Mass fraction] 97 % Dr. Tonio Fajardo DO Work Phone: [facility] 05-04-2025 16:45-0400 Systolic blood pressure 142 mm[Hg] Dr. Tonio Fajardo DO Work Phone: [facility] 05-04-2025 14:51-0400 Body height 167.[address] Tonio Fajardo DO Work Phone: [facility] 05-04-2025 14:51-0400 Body mass index (BMI) [Ratio] 25.7 kg/m2 Dr. Tonio Fajardo DO Work Phone: [facility] 05-04-2025 14:51-0400 Body weight 72.[address] Tonio Fajardo DO Work Phone: [facility] 05-04-2025 13:41-0400 Body weight 72.[address] Tonio Fajardo DO Work Phone: [facility] 05-04-2025 13:25-0400 Body mass index (BMI) [Ratio] 25.7 kg/m2 Dr. Tonio Fajardo DO Work Phone: [facility] 04-28-2025 21:30-0400 Heart rate 100 /min Dr. Tonio Fajardo DO Work Phone: [facility] 04-28-2025 21:30-0400 Respiratory rate 20 /min Dr. Tonio Fajardo DO Work Phone: [facility] 04-28-2025 21:09-0400 Diastolic blood pressure 59 mm[Hg] Dr. Tonio Fajardo DO Work Phone: [facility] 04-28-2025 21:09-0400 Systolic blood pressure 136 mm[Hg] Dr. Tonio Fajardo DO Work Phone: [facility] 04-28-2025 15:29-0400 Inhaled oxygen flow rate 3 L/min Dr. Tonio Fajardo DO Work Phone: [facility] 04-28-2025 14:53-0400 Body mass index (BMI) [Ratio] 25.7 kg/m2 Dr. Tonio Fajardo DO Work Phone: [facility] 04-28-2025 14:53-0400 Body weight 72.[address] Tonio Fajardo DO Work Phone: [facility] 04-28-2025 10:58-0400 SaO2% (BldA) [Mass fraction] 100 % Dr. Tonio Fajardo DO Work Phone: [facility] 04-28-2025 08:44-0400 Body temperature 97.2 [degF] Dr. Tonio Fajardo DO Work Phone: [facility] 04-27-2025 21:42-0400 Diastolic blood pressure 57 mm[Hg] Dr. Tonio Fajardo DO Work Phone: [facility] 04-27-2025 21:42-0400 Heart rate 97 /min Dr. Tonio Fajardo DO Work Phone: [facility] 04-27-2025 21:42-0400 Systolic blood pressure 140 mm[Hg] Dr. Tonio Fajardo DO Work Phone: [facility] 04-27-2025 21:38-0400 Inhaled oxygen flow rate 3 L/min Dr. Tonio Fajardo DO Work Phone: [facility] 04-27-2025 21:38-0400 SaO2% (BldA) [Mass fraction] 98 % Dr. Tonio Fajardo DO Work Phone: [facility] 04-27-2025 08:00-0400 Body temperature 97.6 [degF] Dr. Tonio Fajardo DO Work Phone: [facility] 04-27-2025 08:00-0400 Respiratory rate 20 /min Dr. Tonio Fajardo DO Work Phone: [facility] 04-24-2025 10:25-0400 Body height [address] Tonio Fajardo DO Work Phone: [facility] 04-24-2025 10:25-0400 Body weight 71.[address] Tonio Fajardo DO Work Phone: [facility] 04-23-2025 19:14-0400 Body mass index (BMI) [Ratio] 25.2 kg/m2 Dr. Tonio Fajardo DO Work Phone: [facility] 04-23-2025 14:00-0400 Body temperature 97.9 [degF] Dr. Tonio Fajardo DO Work Phone: [facility] 04-23-2025 14:00-0400 Diastolic blood pressure 73 mm[Hg] Dr. Tonio Fajardo DO Work Phone: [facility] 04-23-2025 14:00-0400 Heart rate 97 /min Dr. Tonio Fajardo DO Work Phone: [facility] 04-23-2025 14:00-0400 Inhaled oxygen flow rate 2 L/min Dr. Tonio Fajardo DO Work Phone: [facility] 04-23-2025 14:00-0400 Respiratory rate 18 /min Dr. Tonio Fajardo DO Work Phone: [facility] 04-23-2025 14:00-0400 SaO2% (BldA) [Mass fraction] 96 % Dr. Tonio Fajardo DO Work Phone: [facility] 04-23-2025 14:00-0400 Systolic blood pressure 109 mm[Hg] Dr. Tonio Fajardo DO Work Phone: [facility] 04-20-2025 13:48-0400 Body height 167.[address] Tonio Fajardo DO Work Phone: [facility] 04-20-2025 13:48-0400 Body weight 65.[address] Tonio Fajardo DO Work Phone: [facility] 04-19-2025 21:50-0400 Inhaled oxygen concentration 2 % Dr. Tonio aFjardo DO Work Phone: [facility] 04-19-2025 12:12-0400 Body mass index (BMI) [Ratio] 23.1 kg/m2 Dr. Tonio Fajardo DO Work Phone: [facility] 04-19-2025 11:03-0400 Body temperature 97.9 [degF] Dr. Tonio Fajardo DO Work Phone: [facility] 04-19-2025 11:03-0400 Diastolic blood pressure 66 mm[Hg] Dr. Tonio Fajardo DO Work Phone: [facility] 04-19-2025 11:03-0400 Heart rate 102 /min Dr. Tonio Fajardo DO Work Phone: [facility] 04-19-2025 11:03-0400 Respiratory rate 16 /min Dr. Tonio Fajardo DO Work Phone: [facility] 04-19-2025 11:03-0400 SaO2% (BldA) [Mass fraction] 100 % Dr. Tonio Fajardo DO Work Phone: [facility] 04-19-2025 11:03-0400 Systolic blood pressure 126 mm[Hg] Dr. Tonio Fajardo DO Work Phone: [facility] 04-19-2025 09:54-0400 Diastolic blood pressure 68 mm[Hg] Dr. Tonio Fajardo DO Work Phone: [facility] 04-19-2025 09:54-0400 Heart rate 103 /min Dr. Tonio Fajardo DO Work Phone: [facility] 04-19-2025 09:54-0400 Systolic blood pressure 85 mm[Hg] Dr. Tonio Fajardo DO Work Phone: [facility] 04-19-2025 09:45-0400 Inhaled oxygen flow rate 3 L/min Dr. Tonio Fajardo DO Work Phone: [facility] 04-19-2025 09:45-0400 Respiratory rate 20 /min Dr. Tonio Fajardo DO Work Phone: [facility] 04-19-2025 09:45-0400 SaO2% (BldA) [Mass fraction] 100 % Dr. Tonio Fajardo DO Work Phone: [facility] 04-19-2025 08:22-0400 Body height 167.[address] Tonio Fajardo DO Work Phone: [facility] 04-19-2025 08:22-0400 Body mass index (BMI) [Ratio] 25.7 kg/m2 Dr. Tonio Fajardo DO Work Phone: [facility] 04-19-2025 08:22-0400 Body temperature 97.9 [degF] Dr. Tonio Fajardo DO Work Phone: [facility] 04-19-2025 08:22-0400 Body weight 72.[address] Tonio Fajardo DO Work Phone: [facility] 04-19-2025 08:08-0400 Heart rate 102 /min Dr. Tonio Fajardo DO Work Phone: [facility] 04-19-2025 07:54-0400 Body temperature 97.4 [degF] Dr. Tonio Fajardo DO Work Phone: [facility] 04-19-2025 07:54-0400 Diastolic blood pressure 67 mm[Hg] Dr. Tonio Fajardo DO Work Phone: [facility] 04-19-2025 07:54-0400 Inhaled oxygen flow rate 3 L/min Dr. Tonio Fajardo DO Work Phone: [facility] 04-19-2025 07:54-0400 Respiratory rate 18 /min Dr. Tonio Fajardo DO Work Phone: [facility] 04-19-2025 07:54-0400 SaO2% (BldA) [Mass fraction] 100 % Dr. Tonio Fajardo DO Work Phone: [facility] 04-19-2025 07:54-0400 Systolic blood pressure 118 mm[Hg] Dr. Tonio Fajardo DO Work Phone: [facility] 04-18-2025 11:58-0400 Body weight 67.[address] Tonio Fajardo DO Work Phone: [facility] 04-17-2025 18:17-0400 Body mass index (BMI) [Ratio] 23.8 kg/m2 Dr. Tonio Fajardo DO Work Phone: [facility] 04-13-2025 02:37-0400 Inhaled oxygen flow rate 15 L/min Dr. Tonio Fajardo DO Work Phone: [facility] 04-13-2025 02:37-0400 SaO2% (BldA) [Mass fraction] 100 % Dr. Tonio Fajardo DO Work Phone: [facility] 04-13-2025 00:56-0400 Body temperature 97.8 [degF] Dr. Tonio Fajardo DO Work Phone: [facility] 04-13-2025 00:56-0400 Diastolic blood pressure 71 mm[Hg] Dr. Tonio Fajardo DO Work Phone: [facility] 04-13-2025 00:56-0400 Heart rate 106 /min Dr. Tonio Fajardo DO Work Phone: [facility] 04-13-2025 00:56-0400 Respiratory rate 21 /min Dr. Tonio Fajardo DO Work Phone: [facility] 04-13-2025 00:56-0400 Systolic blood pressure 129 mm[Hg] Dr. Tonio Fajardo DO Work Phone: [facility] 04-12-2025 23:03-0400 Body temperature 97.8 [degF] Dr. Tonio Fajardo DO Work Phone: [facility] 04-12-2025 23:03-0400 Diastolic blood pressure 80 mm[Hg] Dr. Tonio Fajardo DO Work Phone: [facility] 04-12-2025 23:03-0400 Heart rate 109 /min Dr. Tonio Fajardo DO Work Phone: [facility] 04-12-2025 23:03-0400 Respiratory rate 21 /min Dr. Tonio Fajardo DO Work Phone: [facility] 04-12-2025 23:03-0400 SaO2% (BldA) [Mass fraction] 100 % Dr. Tonio Fajardo DO Work Phone: [facility] 04-12-2025 23:03-0400 Systolic blood pressure 142 mm[Hg] Dr. Tonio Fajardo DO Work Phone: [facility] 04-12-2025 22:00-0400 Inhaled oxygen flow rate 15 L/min Dr. Tonio Fajardo DO Work Phone: [facility] 04-12-2025 18:05-0400 Body height 167.[address] Tonio Fajardo DO Work Phone: [facility] 04-12-2025 18:05-0400 Body mass index (BMI) [Ratio] 25.4 kg/m2 Dr. Tonio Fajardo DO Work Phone: [facility] 04-12-2025 18:05-0400 Body weight 71.[address] Tonio Fajardo DO Work Phone: [facility] 04-12-2025 16:46-0400 Heart rate 115 /min Dr. Tonio Fajardo DO Work Phone: [facility] 04-12-2025 15:40-0400 Diastolic blood pressure 74 mm[Hg] Dr. Tonio Fajardo DO Work Phone: [facility] 04-12-2025 15:40-0400 Inhaled oxygen flow rate 3 L/min Dr. Tonio Fajardo DO Work Phone: [facility] 04-12-2025 15:40-0400 Respiratory rate 22 /min Dr. Tonio Fajardo DO Work Phone: [facility] 04-12-2025 15:40-0400 SaO2% (BldA) [Mass fraction] 96 % Dr. Tonio Fajardo DO Work Phone: [facility] 04-12-2025 15:40-0400 Systolic blood pressure 146 mm[Hg] Dr. Tonio Fajardo DO Work Phone: [facility] 04-12-2025 08:52-0400 Body temperature 96.7 [degF] Dr. Tonio Fajardo DO Work Phone: [facility] 04-11-2025 12:48-0400 Body weight 70.[address] Tonio Fajardo DO Work Phone: [facility] 04-10-2025 23:00-0400 Body mass index (BMI) [Ratio] 25.2 kg/m2 Dr. Tonio Fajardo DO Work Phone: [facility] 04-10-2025 16:21-0400 Body temperature 98.6 [degF] Dr. Tonio Fajardo DO Work Phone: [facility] 04-10-2025 16:21-0400 Diastolic blood pressure 82 mm[Hg] Dr. Tonio Fajardo DO Work Phone: [facility] 04-10-2025 16:21-0400 Heart rate 106 /min Dr. Tonio Fajardo DO Work Phone: [facility] 04-10-2025 16:21-0400 Inhaled oxygen flow rate 3 L/min Dr. Tonio Fajardo DO Work Phone: [facility] 04-10-2025 16:21-0400 Respiratory rate 18 /min Dr. Tonio Fajardo DO Work Phone: [facility] 04-10-2025 16:21-0400 SaO2% (BldA) [Mass fraction] 100 % Dr. Tonio Fajardo DO Work Phone: [facility] 04-10-2025 16:21-0400 Systolic blood pressure 142 mm[Hg] Dr. Tonio Fajardo DO Work Phone: [facility] 04-10-2025 14:30-0400 Body height 167.[address] Tonio Fajardo DO Work Phone: [facility] 04-10-2025 14:30-0400 Body weight 75.[address] Tonio Fajardo DO Work Phone: [facility] 04-10-2025 05:10-0400 Body mass index (BMI) [Ratio] 26.7 kg/m2 Dr. Tonio Fajardo DO Work Phone: [facility] 04-07-2025 00:00-0400 Inhaled oxygen concentration 35 % Dr. Tonio Fajardo DO Work Phone: [facility] 04-05-2025 20:00-0400 Diastolic blood pressure 65 mm[Hg] Dr. Tonio Fajardo DO Work Phone: [facility] 04-05-2025 20:00-0400 Heart rate 103 /min Dr. Tonio Fajardo DO Work Phone: [facility] 04-05-2025 20:00-0400 Inhaled oxygen flow rate 4 L/min Dr. Tonio Fajardo DO Work Phone: [facility] 04-05-2025 20:00-0400 Respiratory rate 25 /min Dr. Tonio Fajardo DO Work Phone: [facility] 04-05-2025 20:00-0400 SaO2% (BldA) [Mass fraction] 92 % Dr. Tonio Fajardo DO Work Phone: [facility] 04-05-2025 20:00-0400 Systolic blood pressure 119 mm[Hg] Dr. Tonio Fajardo DO Work Phone: [facility] 04-05-2025 19:12-0400 Body temperature 98 [degF] Dr. Tonio Fajardo DO Work Phone: [facility] 04-05-2025 16:41-0400 Body height 167.[address] Tonio Fajardo DO Work Phone: [facility] 04-05-2025 16:41-0400 Body mass index (BMI) [Ratio] 28 kg/m2 Dr. Tonio Fajardo DO Work Phone: [facility] 04-05-2025 16:41-0400 Body weight 78.[address] Tonio Fajardo DO Work Phone: [facility] 03-17-2025 13:07-0400 Body height 167.[address] Tonio Fajardo DO Work Phone: [facility] 03-17-2025 13:07-0400 Body mass index (BMI) [Ratio] 26.6 kg/m2 Dr. Tonio Fajardo DO Work Phone: [facility] 03-17-2025 13:07-0400 Body weight 74.[address] Tonio Fajardo DO Work Phone: [facility] 03-17-2025 13:07-0400 Diastolic blood pressure 60 mm[Hg] Dr. Tonio Fajardo DO Work Phone: [facility] 03-17-2025 13:07-0400 Heart rate 101 /min Dr. Tonio Fajardo DO Work Phone: [facility] 03-17-2025 13:07-0400 Inhaled oxygen flow rate 3 L/min Dr. Tonio Fajardo DO Work Phone: [facility] 03-17-2025 13:07-0400 Respiratory rate 20 /min Dr. Tonio Fajardo DO Work Phone: [facility] 03-17-2025 13:07-0400 SaO2% (BldA) [Mass fraction] 96 % Dr. Tonio Fajardo DO Work Phone: [facility] 03-17-2025 13:07-0400 Systolic blood pressure 124 mm[Hg] Dr. Tonio Fajardo DO Work Phone: [facility] 03-15-2025 18:32-0400 Body temperature 98.1 [degF] Dr. Tonio Fajardo DO Work Phone: [facility] 03-15-2025 18:32-0400 Diastolic blood pressure 71 mm[Hg] Dr. Tonio Fajardo DO Work Phone: [facility] 03-15-2025 18:32-0400 Heart rate 101 /min Dr. Tonio Fajardo DO Work Phone: [facility] 03-15-2025 18:32-0400 Respiratory rate 18 /min Dr. Tonio Fajardo DO Work Phone: [facility] 03-15-2025 18:32-0400 SaO2% (BldA) [Mass fraction] 93 % Dr. Tonio Fajardo DO Work Phone: [facility] 03-15-2025 18:32-0400 Systolic blood pressure 168 mm[Hg] Dr. Tonio Fajardo DO Work Phone: [facility] 03-15-2025 16:58-0400 Body height 167.[address] Tonio Fajardo DO Work Phone: [facility] 03-15-2025 16:58-0400 Body mass index (BMI) [Ratio] 27.8 kg/m2 Dr. Tonio Fajardo DO Work Phone: [facility] 03-15-2025 16:58-0400 Body weight 78.[address] Tonio Fajardo DO Work Phone: [facility] 03-15-2025 16:58-0400 Inhaled oxygen flow rate 3 L/min Dr. Tonio Fajardo DO Work Phone: [facility] 03-09-2025 16:22-0400 Body temperature 98.5 [degF] Dr. Tonio Fajardo DO Work Phone: [facility] 03-09-2025 16:22-0400 Heart rate 78 /min Dr. Tonio Fajardo DO Work Phone: [facility] 03-09-2025 16:22-0400 Inhaled oxygen flow rate 3 L/min Dr. Tonio Fajardo DO Work Phone: [facility] 03-09-2025 16:22-0400 Respiratory rate 20 /min Dr. Tonio Fajardo DO Work Phone: [facility] 03-09-2025 16:22-0400 SaO2% (BldA) [Mass fraction] 92 % Dr. Tonio Fajardo DO Work Phone: [facility] 03-09-2025 11:48-0400 Inhaled oxygen flow rate 2 L/min Dr. Tonio Fajardo DO Work Phone: [facility] 03-09-2025 11:48-0400 SaO2% (BldA) [Mass fraction] 79 % Dr. Tonio Fajardo DO Work Phone: [facility] 03-09-2025 11:11-0400 Body height 167.[address] Tonio Fajardo DO Work Phone: [facility] 03-09-2025 11:11-0400 Body weight 78.[address] Tonio Fajardo DO Work Phone: [facility] 03-09-2025 10:00-0400 Diastolic blood pressure 51 mm[Hg] Dr. Tonio Fajardo DO Work Phone: [facility] 03-09-2025 10:00-0400 Heart rate 97 /min Dr. Tonio Fajardo DO Work Phone: [facility] 03-09-2025 10:00-0400 Systolic blood pressure 129 mm[Hg] Dr. Tonio Fajardo DO Work Phone: [facility] 03-09-2025 05:00-0400 Body mass index (BMI) [Ratio] 28 kg/m2 Dr. Tonio Fajardo DO Work Phone: [facility] 03-04-2025 20:49-0400 Body temperature 98.6 [degF] Dr. Tonio Fajardo DO Work Phone: [facility] 03-04-2025 20:49-0400 Diastolic blood pressure 70 mm[Hg] Dr. Tonio Fajardo DO Work Phone: [facility] 03-04-2025 20:49-0400 Heart rate 114 /min Dr. Tonio Fajardo DO Work Phone: [facility] 03-04-2025 20:49-0400 Respiratory rate 20 /min Dr. Tonio Fajardo DO Work Phone: [facility] 03-04-2025 20:49-0400 SaO2% (BldA) [Mass fraction] 100 % Dr. Tonio aFjardo DO Work Phone: [facility] 03-04-2025 20:49-0400 Systolic blood pressure 153 mm[Hg] Dr. Tonio Fajardo DO Work Phone: [facility] 03-04-2025 20:00-0400 Inhaled oxygen flow rate 4 L/min Dr. Tonio Fajardo DO Work Phone: [facility] 03-04-2025 15:01-0400 Body height 167.[address] Tonio Fajardo DO Work Phone: [facility] 03-04-2025 15:01-0400 Body mass index (BMI) [Ratio] 25.9 kg/m2 Dr. Tonio Fajardo DO Work Phone: [facility] 03-04-2025 15:01-0400 Body weight 73.[address] Tonio Fajardo DO Work Phone: [facility] 11-06-2024 14:45-0400 Body height 167.[address] Tonio Fajardo DO Work Phone: [facility] 11-06-2024 14:45-0400 Body mass index (BMI) [Ratio] 28.5 kg/m2 Dr. Tonio Fajardo DO Work Phone: [facility] 11-06-2024 14:45-0400 Body temperature 98.5 [degF] Dr. Tonio Fajardo DO Work Phone: [facility] 11-06-2024 14:45-0400 Body weight 80.[address] Tonio Fajardo DO Work Phone: [facility] 11-06-2024 14:45-0400 Diastolic blood pressure 55 mm[Hg] Dr. Tonio Fajardo DO Work Phone: [facility] 11-06-2024 14:45-0400 Heart rate 55 /min Dr. Tonio Fajardo DO Work Phone: [facility] 11-06-2024 14:45-0400 Respiratory rate 18 /min Dr. Tonio Fajardo DO Work Phone: [facility] 11-06-2024 14:45-0400 SaO2% (BldA) [Mass fraction] 95 % Dr. Tonio Fajardo DO Work Phone: [facility] 11-06-2024 14:45-0400 Systolic blood pressure 116 mm[Hg] Dr. Tonio Fajardo DO Work Phone: [facility] 10-23-2024 09:06-0500 Body mass index (BMI) [Ratio] 28.5 kg/m2 Dr. Tonio Fajardo DO Work Phone: [facility] 10-23-2024 09:06-0500 Body temperature 97.4 [degF] Dr. Tonio Fajardo DO Work Phone: [facility] 10-23-2024 09:06-0500 Body weight 80.[address] Tonio Fajardo DO Work Phone: [facility] 10-23-2024 09:06-0500 Diastolic blood pressure 56 mm[Hg] Dr. Tonio Fajardo DO Work Phone: [facility] 10-23-2024 09:06-0500 Heart rate 52 /min Dr. Tonio Fajardo DO Work Phone: [facility] 10-23-2024 09:06-0500 Inhaled oxygen flow rate 3 L/min Dr. Tonio Fajardo DO Work Phone: [facility] 10-23-2024 09:06-0500 Respiratory rate 26 /min Dr. Tonio Fajardo DO Work Phone: [facility] 10-23-2024 09:06-0500 SaO2% (BldA) [Mass fraction] 97 % Dr. Tonio Fajardo DO Work Phone: [facility] 10-23-2024 09:06-0500 Systolic blood pressure 128 mm[Hg] Dr. Tonio Fajardo DO Work Phone: [facility] 10-16-2024 13:24-0500 Body height 167.[address] Tonio Fajardo DO Work Phone: [facility] 10-16-2024 13:24-0500 Body weight 78.[address] Tonio Fajardo DO Work Phone: [facility] 10-16-2024 13:24-0500 Heart rate 98 /min Dr. Tonio Fajardo DO Work Phone: [facility] 10-16-2024 13:24-0500 Inhaled oxygen flow rate 2 L/min Dr. Tonio Fajardo DO Work Phone: [facility] 10-16-2024 13:24-0500 SaO2% (BldA) [Mass fraction] 96 % Dr. Tonio Fajardo DO Work Phone: [facility] 09-25-2024 12:59-0500 Body mass index (BMI) [Ratio] 27.7 kg/m2 Dr. Tonio Fajardo DO Work Phone: [facility] 09-25-2024 12:59-0500 Body weight 80.[address] Tonio Fajardo DO Work Phone: [facility] 09-25-2024 12:59-0500 Diastolic blood pressure 75 mm[Hg] Dr. Tonio Fajardo DO Work Phone: [facility] 09-25-2024 12:59-0500 Heart rate 99 /min Dr. Tonio Fajardo DO Work Phone: [facility] 09-25-2024 12:59-0500 Respiratory rate 18 /min Dr. Tonio Fajardo DO Work Phone: [facility] 09-25-2024 12:59-0500 SaO2% (BldA) [Mass fraction] 90 % Dr. Tonio Fajardo DO Work Phone: [facility] 09-25-2024 12:59-0500 Systolic blood pressure 120 mm[Hg] Dr. Tonio Fajardo DO Work Phone: [facility] 11-12-2023 13:22-0400 Body height 170.[address] Tonio Fajardo Work Phone: [facility] 11-12-2023 13:22-0400 Body mass index (BMI) [Ratio] 28 kg/m2 Dr. Tonio Fajardo Work Phone: [facility] 11-12-2023 13:22-0400 Body temperature 97.9 [degF] Dr. Tonio Fajardo Work Phone: [facility] 11-12-2023 13:22-0400 Body weight 81.[address] Tonio Fajardo Work Phone: [facility] 11-12-2023 13:22-0400 Diastolic blood pressure 62 mm[Hg] Dr. Tonio Fajardo Work Phone: [facility] 11-12-2023 13:22-0400 Heart rate 103 /min Dr. Tonio Fajardo Work Phone: [facility] 11-12-2023 13:22-0400 Respiratory rate 18 /min Dr. Tonio Fajardo Work Phone: [facility] 11-12-2023 13:22-0400 SaO2% (BldA) [Mass fraction] 98 % Dr. Tonio Fajardo Work Phone: [facility] 11-12-2023 13:22-0400 Systolic blood pressure 97 mm[Hg] Dr. Tonio Fajardo Work Phone: [facility] 10-31-2023 12:05-0400 Body mass index (BMI) [Ratio] 27.3 kg/m2 Dr. Tonio Fajardo Work Phone: [facility] 10-31-2023 12:05-0400 Body temperature 98.2 [degF] Dr. Tonio Fajardo Work Phone: [facility] 10-31-2023 12:05-0400 Body weight 79.[address] Tonio Fajardo Work Phone: [facility] 10-31-2023 12:05-0400 Diastolic blood pressure 71 mm[Hg] Dr. Tonio Fajardo Work Phone: [facility] 10-31-2023 12:05-0400 Heart rate 78 /min Dr. Tonio Fajardo Work Phone: [facility] 10-31-2023 12:05-0400 Respiratory rate 18 /min Dr. Tonio Fajardo Work Phone: [facility] 10-31-2023 12:05-0400 SaO2% (BldA) [Mass fraction] 94 % Dr. Tonio Fajardo Work Phone: [facility] 10-31-2023 12:05-0400 Systolic blood pressure 119 mm[Hg] Dr. Tonio Fajardo Work Phone: [facility] 10-18-2023 14:51-0500 Body mass index (BMI) [Ratio] 28 kg/m2 Dr. Tonio Fajardo Work Phone: [facility] 10-18-2023 14:51-0500 Body temperature 98.9 [degF] Dr. Tonio Fajardo Work Phone: [facility] 10-18-2023 14:51-0500 Body weight 81.[address] Tonio Fajardo Work Phone: [facility] 10-18-2023 14:51-0500 Diastolic blood pressure 60 mm[Hg] Dr. Tonio Fajardo Work Phone: [facility] 10-18-2023 14:51-0500 Heart rate 98 /min Dr. Tonio Fajardo Work Phone: [facility] 10-18-2023 14:51-0500 Respiratory rate 18 /min Dr. Tonio Fajardo Work Phone: [facility] 10-18-2023 14:51-0500 SaO2% (BldA) [Mass fraction] 96 % Dr. Tonio Fajardo Work Phone: [facility] 10-18-2023 14:51-0500 Systolic blood pressure 114 mm[Hg] Dr. Tonio Fajardo Work Phone: [facility] 08-29-2023 12:52-0500 Body height 170.[address] Tonio Fajardo Work Phone: [facility] 08-29-2023 12:52-0500 Body mass index (BMI) [Ratio] 27.8 kg/m2 Dr. Tonio Fajardo Work Phone: [facility] 08-29-2023 12:52-0500 Body weight 80.[address] Tonio Fajardo Work Phone: [facility] 08-29-2023 12:52-0500 Diastolic blood pressure 71 mm[Hg] Dr. Tonio Fajardo Work Phone: [facility] 08-29-2023 12:52-0500 Heart rate 95 /min Dr. Tonio Fajardo Work Phone: [facility] 08-29-2023 12:52-0500 Respiratory rate 18 /min Dr. Tonio Fajardo Work Phone: [facility] 08-29-2023 12:52-0500 SaO2% (BldA) [Mass fraction] 97 % Dr. Tonio Fajardo Work Phone: [facility] 08-29-2023 12:52-0500 Systolic blood pressure 111 mm[Hg] Dr. Tonio Fajardo Work Phone: [facility] 07-25-2023 07:50-0500 Body height 170.[address] Tonio Fajardo Work Phone: [facility] 07-25-2023 07:50-0500 Body mass index (BMI) [Ratio] 29.4 kg/m2 Dr. Tonio Fajardo Work Phone: [facility] 07-25-2023 07:50-0500 Body temperature 96.2 [degF] Dr. Tonio Fajardo Work Phone: [facility] 07-25-2023 07:50-0500 Body weight 85.[address] Tonio Fajardo Work Phone: [facility] 07-25-2023 07:50-0500 Diastolic blood pressure 75 mm[Hg] Dr. Tonio Fajardo Work Phone: [facility] 07-25-2023 07:50-0500 Heart rate 53 /min Dr. Tonio Fajardo Work Phone: [facility] 07-25-2023 07:50-0500 Respiratory rate 20 /min Dr. Tonio Fajardo Work Phone: [facility] 07-25-2023 07:50-0500 SaO2% (BldA) [Mass fraction] 82 % Dr. Tonio Fajardo Work Phone: [facility] 07-25-2023 07:50-0500 Systolic blood pressure 119 mm[Hg] Dr. Tonio Fajardo Work Phone: [facility] 06-08-2023 14:33-0400 Body temperature 97.1 [degF] Dr. Tonio Fajardo Work Phone: [facility] 06-08-2023 14:33-0400 Diastolic blood pressure 67 mm[Hg] Dr. Tonio Fajardo Work Phone: [facility] 06-08-2023 14:33-0400 Heart rate 103 /min Dr. Tonio Fajardo Work Phone: [facility] 06-08-2023 14:33-0400 Respiratory rate 14 /min Dr. Tonio Fajardo Work Phone: [facility] 06-08-2023 14:33-0400 SaO2% (BldA) [Mass fraction] 93 % Dr. Tonio Fajardo Work Phone: [facility] 06-08-2023 14:33-0400 Systolic blood pressure 133 mm[Hg] Dr. Tonio Fajardo Work Phone: [facility] 06-08-2023 12:20-0400 Body height 170.[address] Tonio Fajardo Work Phone: [facility] 06-08-2023 12:20-0400 Body mass index (BMI) [Ratio] 29.3 kg/m2 Dr. Tonio Fajardo Work Phone: [facility] 06-08-2023 12:20-0400 Body weight [address] Tonio Fajardo Work Phone: [facility] 05-02-2023 13:50-0400 Diastolic blood pressure 63 mm[Hg] Dr. Tonio Fajardo Work Phone: [facility] 05-02-2023 13:50-0400 Heart rate 97 /min Dr. Tonio Fajardo Work Phone: [facility] 05-02-2023 13:50-0400 Respiratory rate 18 /min Dr. Tonio Fajardo Work Phone: [facility] 05-02-2023 13:50-0400 Systolic blood pressure 113 mm[Hg] Dr. Tonio Fajardo Work Phone: [facility] 04-25-2023 14:04-0400 Body temperature 97.9 [degF] Dr. Tonio Fajardo Work Phone: [facility] 04-18-2023 13:24-0400 Body temperature 97.5 [degF] Dr. Tonio Fajardo Work Phone: [facility] 04-18-2023 13:24-0400 Diastolic blood pressure 77 mm[Hg] Dr. Tonio Fajardo Work Phone: [facility] 04-18-2023 13:24-0400 Heart rate 109 /min Dr. Tonio Fajardo Work Phone: [facility] 04-18-2023 13:24-0400 Respiratory rate 16 /min Dr. Tonio Fajardo Work Phone: [facility] 04-18-2023 13:24-0400 Systolic blood pressure 141 mm[Hg] Dr. Tonio Fajardo Work Phone: [facility] 04-17-2023 11:08-0400 Body height 167.[address] Tonio Fajardo Work Phone: [facility] 04-17-2023 11:08-0400 Body mass index (BMI) [Ratio] 30.2 kg/m2 Dr. Tonio Fajardo Work Phone: [facility] 04-17-2023 11:08-0400 Body temperature 98.6 [degF] Dr. Tonio Fajardo Work Phone: [facility] 04-17-2023 11:08-0400 Body weight 84.[address] Tonio Fajardo Work Phone: [facility] 04-17-2023 11:08-0400 Diastolic blood pressure 87 mm[Hg] Dr. Tonio Fajardo Work Phone: [facility] 04-17-2023 11:08-0400 Heart rate 87 /min Dr. Tonio Fajardo Work Phone: [facility] 04-17-2023 11:08-0400 Respiratory rate 18 /min Dr. Tonio Fajardo Work Phone: [facility] 04-17-2023 11:08-0400 SaO2% (BldA) [Mass fraction] 95 % Dr. Tonio Fajardo Work Phone: [facility] 04-17-2023 11:08-0400 Systolic blood pressure 130 mm[Hg] Dr. Tonio Fajardo Work Phone: [facility] 04-02-2023 11:24-0400 Body temperature 98.6 [degF] Dr. Tonio Fajardo Work Phone: [facility] 04-02-2023 11:24-0400 Diastolic blood pressure 55 mm[Hg] Dr. Tonio Fajardo Work Phone: [facility] 04-02-2023 11:24-0400 Heart rate 101 /min Dr. Tonio Fajardo Work Phone: [facility] 04-02-2023 11:24-0400 Respiratory rate 20 /min Dr. Tonio Fajardo Work Phone: [facility] 04-02-2023 11:24-0400 Systolic blood pressure 114 mm[Hg] Dr. Tonio Fajardo Work Phone: [facility] 03-19-2023 10:28-0400 Body temperature 98.2 [degF] Dr. Tonio Fajardo Work Phone: [facility] 03-19-2023 10:28-0400 Diastolic blood pressure 59 mm[Hg] Dr. Tonio Fajardo Work Phone: [facility] 03-19-2023 10:28-0400 Heart rate 106 /min Dr. Tonio Fajardo Work Phone: [facility] 03-19-2023 10:28-0400 Respiratory rate 20 /min Dr. Tonio Fajardo Work Phone: [facility] 03-19-2023 10:28-0400 Systolic blood pressure 120 mm[Hg] Dr. Tonio Fajardo Work Phone: [facility] 02-05-2023 13:10-0400 Body temperature 97.6 [degF] Dr. Tonio Fajardo Work Phone: [facility] 02-05-2023 13:10-0400 Diastolic blood pressure 76 mm[Hg] Dr. Tonio Fajardo Work Phone: [facility] 02-05-2023 13:10-0400 Heart rate 109 /min Dr. Tonio Fajardo Work Phone: [facility] 02-05-2023 13:10-0400 Respiratory rate 18 /min Dr. Tonio Fajardo Work Phone: [facility] 02-05-2023 13:10-0400 Systolic blood pressure 160 mm[Hg] Dr. Tonio Fajardo Work Phone: [facility] 01-08-2023 13:37-0400 Body temperature 96.7 [degF] Dr. Tonio Fajardo Work Phone: [facility] 01-08-2023 13:37-0400 Diastolic blood pressure 46 mm[Hg] Dr. Tonio Fajardo Work Phone: [facility] 01-08-2023 13:37-0400 Heart rate 111 /min Dr. Tonio Fajardo Work Phone: [facility] 01-08-2023 13:37-0400 Systolic blood pressure 121 mm[Hg] Dr. Tonio Fajardo Work Phone: [facility] 12-31-2022 00:58-0400 Body temperature 98.7 [degF] Dr. Tonio Fajardo Work Phone: [facility] 12-31-2022 00:58-0400 Diastolic blood pressure 59 mm[Hg] Dr. Tonio Fajardo Work Phone: [facility] 12-31-2022 00:58-0400 Heart rate 111 /min Dr. Tonio Fajardo Work Phone: [facility] 12-31-2022 00:58-0400 Respiratory rate 26 /min Dr. Tonio Fajardo Work Phone: [facility] 12-31-2022 00:58-0400 SaO2% (BldA) [Mass fraction] 93 % Dr. Tonio Fajardo Work Phone: [facility] 12-31-2022 00:58-0400 Systolic blood pressure 131 mm[Hg] Dr. Tonio Fajardo Work Phone: [facility] 12-30-2022 22:36-0400 Body height 167.[address] Tonio Fajardo Work Phone: [facility] 12-30-2022 22:36-0400 Body mass index (BMI) [Ratio] 30.5 kg/m2 Dr. Tonio Fajardo Work Phone: [facility] 12-30-2022 22:36-0400 Body weight 85.[address] Tonio Fajardo Work Phone: [facility] 12-25-2022 14:53-0400 Body temperature 97.7 [degF] Dr. Tonio Fajardo Work Phone: [facility] 12-25-2022 14:53-0400 Diastolic blood pressure 51 mm[Hg] Dr. Tonio Fajardo Work Phone: [facility] 12-25-2022 14:53-0400 Heart rate 110 /min Dr. Tonio Fajardo Work Phone: [facility] 12-25-2022 14:53-0400 Respiratory rate 18 /min Dr. Tonio Fajardo Work Phone: [facility] 12-25-2022 14:53-0400 Systolic blood pressure 101 mm[Hg] Dr. Tonio Fajardo Work Phone: [facility] 12-12-2022 10:49-0400 Body height 167.[address] Tonio Fajardo Work Phone: [facility] 12-12-2022 10:49-0400 Body mass index (BMI) [Ratio] 29.7 kg/m2 Dr. Tonio Fajardo Work Phone: [facility] 12-12-2022 10:49-0400 Body temperature 97.4 [degF] Dr. Tonio Fajardo Work Phone: [facility] 12-12-2022 10:49-0400 Body weight 83.[address] Tonio Fajardo Work Phone: [facility] 12-12-2022 10:49-0400 Diastolic blood pressure 71 mm[Hg] Dr. Tonio Fajardo Work Phone: [facility] 12-12-2022 10:49-0400 Heart rate 114 /min Dr. Tonio Fajardo Work Phone: [facility] 12-12-2022 10:49-0400 Respiratory rate 18 /min Dr. Tonio Fajardo Work Phone: [facility] 12-12-2022 10:49-0400 SaO2% (BldA) [Mass fraction] 96 % Dr. Tonio Fajardo Work Phone: [facility] 12-12-2022 10:49-0400 Systolic blood pressure 135 mm[Hg] Dr. Tonio Fajardo Work Phone: [facility] 12-11-2022 13:12-0400 Body temperature 96.2 [degF] Dr. Tonio Fajardo Work Phone: [facility] 12-11-2022 13:12-0400 Diastolic blood pressure 87 mm[Hg] Dr. Tonio Fajardo Work Phone: [facility] 12-11-2022 13:12-0400 Heart rate 107 /min Dr. Tonio Fajardo Work Phone: [facility] 12-11-2022 13:12-0400 Respiratory rate 20 /min Dr. Tonio Fajardo Work Phone: [facility] 12-11-2022 13:12-0400 Systolic blood pressure 110 mm[Hg] Dr. Tonio Fajardo Work Phone: [facility] 11-16-2022 13:13-0400 Diastolic blood pressure 49 mm[Hg] Dr. Tonio Fajardo Work Phone: [facility] 11-16-2022 13:13-0400 Heart rate 82 /min Dr. Tonio Fajardo Work Phone: [facility] 11-16-2022 13:13-0400 Respiratory rate 16 /min Dr. Tonio Fajardo Work Phone: [facility] 11-16-2022 13:13-0400 Systolic blood pressure 125 mm[Hg] Dr. Tonio Fajardo Work Phone: [facility] 11-08-2022 09:52-0400 Body temperature 97.3 [degF] Dr. Tonio Fajardo Work Phone: [facility] 10-16-2022 14:07-0500 Body height 167.[address] Tonio Fajardo Work Phone: [facility] 10-16-2022 14:05-0500 Body mass index (BMI) [Ratio] 29.8 kg/m2 Dr. Tonio Fajardo Work Phone: [facility] 10-16-2022 14:05-0500 Body temperature 97.6 [degF] Dr. Tonio Fajardo Work Phone: [facility] 10-16-2022 14:05-0500 Body weight 83.[address] Tonio Fajardo Work Phone: [facility] 10-16-2022 14:05-0500 Diastolic blood pressure 89 mm[Hg] Dr. Tonio Fajardo Work Phone: [facility] 10-16-2022 14:05-0500 Heart rate 78 /min Dr. Tonio Fajardo Work Phone: [facility] 10-16-2022 14:05-0500 Respiratory rate 18 /min Dr. Tonio Fajardo Work Phone: [facility] 10-16-2022 14:05-0500 SaO2% (BldA) [Mass fraction] 94 % Dr. Tonio Fajardo Work Phone: [facility] 10-16-2022 14:05-0500 Systolic blood pressure 145 mm[Hg] Dr. Tonio Fajardo Work Phone: [facility] 10-16-2022 13:24-0500 Body mass index (BMI) [Ratio] 29.8 kg/m2 Dr. Tonio Fajardo Work Phone: [facility] 10-16-2022 13:24-0500 Body temperature 98.6 [degF] Dr. Tonio Fajardo Work Phone: [facility] 10-16-2022 13:24-0500 Body weight 83.[address] Tonio Fajardo Work Phone: [facility] 10-16-2022 13:24-0500 Diastolic blood pressure 74 mm[Hg] Dr. Tonio Fajardo Work Phone: [facility] 10-16-2022 13:24-0500 Heart rate 75 /min Dr. Tonio Fajardo Work Phone: [facility] 10-16-2022 13:24-0500 Respiratory rate 18 /min Dr. Tonio Fajardo Work Phone: [facility] 10-16-2022 13:24-0500 SaO2% (BldA) [Mass fraction] 94 % Dr. Tonio Fajardo Work Phone: [facility] 10-16-2022 13:24-0500 Systolic blood pressure 146 mm[Hg] Dr. Tonio Fajardo Work Phone: [facility] 10-09-2022 12:59-0500 Body temperature 97.5 [degF] Dr. Tonio Fajardo Work Phone: [facility] 10-09-2022 12:59-0500 Diastolic blood pressure 63 mm[Hg] Dr. Tonio Fajardo Work Phone: [facility] 10-09-2022 12:59-0500 Heart rate 89 /min Dr. Tonio Fajardo Work Phone: [facility] 10-09-2022 12:59-0500 Respiratory rate 22 /min Dr. Tonio Fajardo Work Phone: [facility] 10-09-2022 12:59-0500 Systolic blood pressure 148 mm[Hg] Dr. Tonio Fajardo Work Phone: [facility] 09-18-2022 09:49-0500 Body temperature 97.3 [degF] Dr. Tonio Fajardo Work Phone: [facility] 09-18-2022 09:49-0500 Diastolic blood pressure 44 mm[Hg] Dr. Tonio Fajardo Work Phone: [facility] 09-18-2022 09:49-0500 Heart rate 66 /min Dr. Tonio Fajardo Work Phone: [facility] 09-18-2022 09:49-0500 Respiratory rate 18 /min Dr. Tonio Fajardo Work Phone: [facility] 09-18-2022 09:49-0500 Systolic blood pressure 138 mm[Hg] Dr. Tonio Fajardo Work Phone: [facility] 08-15-2022 13:56-0500 Body temperature 97.1 [degF] Dr. Tonio Fajardo Work Phone: [facility] 08-15-2022 13:56-0500 Diastolic blood pressure 43 mm[Hg] Dr. Tonio Fajardo Work Phone: [facility] 08-15-2022 13:56-0500 Heart rate 73 /min Dr. Tonio Fajardo Work Phone: [facility] 08-15-2022 13:56-0500 Respiratory rate 16 /min Dr. Tonio Fajardo Work Phone: [facility] 08-15-2022 13:56-0500 Systolic blood pressure 139 mm[Hg] Dr. Tonio Fajardo Work Phone: [facility] 08-08-2022 14:00-0500 Body height 167.[address] Tonio Fajardo Work Phone: [facility] 08-08-2022 13:57-0500 Body mass index (BMI) [Ratio] 29.5 kg/m2 Dr. Tonio Fajardo Work Phone: [facility] 08-08-2022 13:57-0500 Body temperature 97.5 [degF] Dr. Tonio Fajardo Work Phone: [facility] 08-08-2022 13:57-0500 Body weight 83.[address] Tonio Fajardo Work Phone: [facility] 08-08-2022 13:57-0500 Diastolic blood pressure 54 mm[Hg] Dr. Tonio Fajardo Work Phone: [facility] 08-08-2022 13:57-0500 Heart rate 67 /min Dr. Tonio Fajardo Work Phone: [facility] 08-08-2022 13:57-0500 Respiratory rate 16 /min Dr. Tonio Fajardo Work Phone: [facility] 08-08-2022 13:57-0500 SaO2% (BldA) [Mass fraction] 94 % Dr. Tonio Fajardo Work Phone: [facility] 08-08-2022 13:57-0500 Systolic blood pressure 109 mm[Hg] Dr. Tonio Fajardo Work Phone: [facility] 07-19-2022 14:30-0500 Body height 167.[address] Tonio Fajardo Work Phone: [facility] Work Phone: 07-19-2022 14:30-0500 Body mass index (BMI) [Ratio] 29 kg/m2 Dr. Tonio Fajardo Work Phone: [facility] 07-19-2022 14:30-0500 Body weight 81.[address] Tonio Fajardo Work Phone: [facility] 07-19-2022 14:30-0500 Diastolic blood pressure 62 mm[Hg] Dr. Tonio Fajardo Work Phone: [facility] 07-19-2022 14:30-0500 Heart rate 66 /min Dr. Tonio Fajardo Work Phone: [facility] 07-19-2022 14:30-0500 Respiratory rate 24 /min Dr. Tonio Fajardo Work Phone: [facility] 07-19-2022 14:30-0500 SaO2% (BldA) [Mass fraction] 97 % Dr. Tonio Fajardo Work Phone: [facility] 07-19-2022 14:30-0500 Systolic blood pressure 117 mm[Hg] Dr. Tonio Fajardo Work Phone: [facility] 07-18-2022 13:29-0500 Body temperature 97.1 [degF] Dr. Tonio Fajardo Work Phone: [facility] 07-18-2022 13:29-0500 Diastolic blood pressure 57 mm[Hg] Dr. Tonio Fajardo Work Phone: [facility] 07-18-2022 13:29-0500 Heart rate 83 /min Dr. Tonio Fajardo Work Phone: [facility] 07-18-2022 13:29-0500 Respiratory rate 16 /min Dr. Tonio Fajardo Work Phone: [facility] 07-18-2022 13:29-0500 Systolic blood pressure 117 mm[Hg] Dr. Tonio Fajardo Work Phone: [facility] 07-17-2022 11:23-0500 Body temperature 98.3 [degF] Dr. Tonio Fajardo Work Phone: [facility] 07-17-2022 11:23-0500 Diastolic blood pressure 58 mm[Hg] Dr. Tonio Fajardo Work Phone: [facility] 07-17-2022 11:23-0500 Heart rate 63 /min Dr. Tonio Fajardo Work Phone: [facility] 07-17-2022 11:23-0500 Respiratory rate 16 /min Dr. Tonio Fajardo Work Phone: [facility] 07-17-2022 11:23-0500 SaO2% (BldA) [Mass fraction] 97 % Dr. Tonio Fajardo Work Phone: [facility] 07-17-2022 11:23-0500 Systolic blood pressure 107 mm[Hg] Dr. Tonio Fajardo Work Phone: [facility] 07-05-2022 14:00-0500 Body mass index (BMI) [Ratio] 29 kg/m2 Dr. Tonio Fajardo Work Phone: [facility] 07-05-2022 14:00-0500 Body temperature 96.9 [degF] Dr. Tonio Fajardo Work Phone: [facility] 07-05-2022 14:00-0500 Body weight 81.[address] Tonio Fajardo Work Phone: [facility] 07-05-2022 14:00-0500 Diastolic blood pressure 63 mm[Hg] Dr. Tonio Fajardo Work Phone: [facility] 07-05-2022 14:00-0500 Heart rate 66 /min Dr. Tonio Fajardo Work Phone: [facility] 07-05-2022 14:00-0500 Respiratory rate 16 /min Dr. Tonio Fajardo Work Phone: [facility] 07-05-2022 14:00-0500 SaO2% (BldA) [Mass fraction] 97 % Dr. Tonio Fajardo Work Phone: [facility] 07-05-2022 14:00-0500 Systolic blood pressure 156 mm[Hg] Dr. Tonio Fajardo Work Phone: [facility] 06-28-2022 14:11-0500 Body mass index (BMI) [Ratio] 29.6 kg/m2 Dr. Tonio Fajardo Work Phone: [facility] 06-28-2022 14:11-0500 Body temperature 97.1 [degF] Dr. Tonio Fajardo Work Phone: [facility] 06-28-2022 14:11-0500 Body weight 83.[address] Tonio Fajardo Work Phone: [facility] 06-28-2022 14:11-0500 Diastolic blood pressure 58 mm[Hg] Dr. Tonio Fajardo Work Phone: [facility] 06-28-2022 14:11-0500 Heart rate 77 /min Dr. Tonio Fajardo Work Phone: [facility] 06-28-2022 14:11-0500 Respiratory rate 16 /min Dr. Tonio Fajardo Work Phone: [facility] 06-28-2022 14:11-0500 SaO2% (BldA) [Mass fraction] 89 % Dr. Tonio Fajardo Work Phone: [facility] 06-28-2022 14:11-0500 Systolic blood pressure 124 mm[Hg] Dr. Tonio Fajardo Work Phone: [facility] 06-21-2022 13:57-0400 Body mass index (BMI) [Ratio] 29.8 kg/m2 Dr. Tonio Fajardo Work Phone: [facility] 06-21-2022 13:57-0400 Body temperature 97 [degF] Dr. Tonio Fajardo Work Phone: [facility] 06-21-2022 13:57-0400 Body weight 83.[address] Tonio Fajardo Work Phone: [facility] 06-21-2022 13:57-0400 Diastolic blood pressure 88 mm[Hg] Dr. Tonio Fajardo Work Phone: [facility] 06-21-2022 13:57-0400 Heart rate 70 /min Dr. Tonio Fajardo Work Phone: [facility] 06-21-2022 13:57-0400 Respiratory rate 18 /min Dr. Tonio Fajardo Work Phone: [facility] 06-21-2022 13:57-0400 SaO2% (BldA) [Mass fraction] 94 % Dr. Tonio Fajardo Work Phone: [facility] 06-21-2022 13:57-0400 Systolic blood pressure 139 mm[Hg] Dr. Tonio Fajardo Work Phone: [facility] 06-14-2022 13:55-0400 Body height 167.[address] Tonio Fajardo Work Phone: [facility] Work Phone: 06-14-2022 13:53-0400 Body mass index (BMI) [Ratio] 29.5 kg/m2 Dr. Tonio Fajardo Work Phone: [facility] 06-14-2022 13:53-0400 Body temperature 97 [degF] Dr. Tonio Fajardo Work Phone: [facility] 06-14-2022 13:53-0400 Body weight 83.[address] Tonio Fajardo Work Phone: [facility] 06-14-2022 13:53-0400 Diastolic blood pressure 61 mm[Hg] Dr. Tonio Fajardo Work Phone: [facility] 06-14-2022 13:53-0400 Heart rate 66 /min Dr. Tonio Fajardo Work Phone: [facility] 06-14-2022 13:53-0400 Respiratory rate 16 /min Dr. Tonio Fajardo Work Phone: [facility] 06-14-2022 13:53-0400 SaO2% (BldA) [Mass fraction] 94 % Dr. Tonio Fajardo Work Phone: [facility] 06-14-2022 13:53-0400 Systolic blood pressure 137 mm[Hg] Dr. Tonio Fajardo Work Phone: [facility] 06-12-2022 10:32-0400 Body temperature 97.3 [degF] Dr. Tonio Fajardo Work Phone: [facility] 06-12-2022 10:32-0400 Diastolic blood pressure 63 mm[Hg] Dr. Tonio Fajardo Work Phone: [facility] 06-12-2022 10:32-0400 Heart rate 59 /min Dr. Tonio Fajardo Work Phone: [facility] 06-12-2022 10:32-0400 Respiratory rate 18 /min Dr. Tonio Fajardo Work Phone: [facility] 06-12-2022 10:32-0400 Systolic blood pressure 149 mm[Hg] Dr. Tonio Fajardo Work Phone: [facility] 05-30-2022 14:08-0400 Body height 167.[address] Tonio Fajardo Work Phone: [facility] Work Phone: 05-30-2022 14:05-0400 Body mass index (BMI) [Ratio] 29.7 kg/m2 Dr. Tonio Fajardo Work Phone: [facility] 05-30-2022 14:05-0400 Body temperature 97 [degF] Dr. Tonio Fajardo Work Phone: [facility] 05-30-2022 14:05-0400 Body weight 83.[address] Tonio Fajardo Work Phone: [facility] 05-30-2022 14:05-0400 Diastolic blood pressure 64 mm[Hg] Dr. Tonio Fajardo Work Phone: [facility] 05-30-2022 14:05-0400 Heart rate 65 /min Dr. Tonio Fajardo Work Phone: [facility] 05-30-2022 14:05-0400 Respiratory rate 18 /min Dr. Tonio Fajardo Work Phone: [facility] 05-30-2022 14:05-0400 SaO2% (BldA) [Mass fraction] 95 % Dr. Tonio Fajardo Work Phone: [facility] 05-30-2022 14:05-0400 Systolic blood pressure 145 mm[Hg] Dr. Tonio Fajardo Work Phone: [facility] 05-29-2022 14:48-0400 Body temperature 97.6 [degF] Dr. Tonio Fajardo Work Phone: [facility] Work Phone: 05-29-2022 14:48-0400 Diastolic blood pressure 51 mm[Hg] Dr. Tonio Fajardo Work Phone: [facility] Work Phone: 05-29-2022 14:48-0400 Heart rate 75 /min Dr. Tonio Fajardo Work Phone: [facility] Work Phone: 05-29-2022 14:48-0400 Systolic blood pressure 158 mm[Hg] Dr. Tonio Fajardo Work Phone: [facility] Work Phone: 05-24-2022 14:31-0400 Body height 167.[address] Tonio Fajardo Work Phone: [facility] Work Phone: 05-24-2022 14:22-0400 Body mass index (BMI) [Ratio] 29.7 kg/m2 Dr. Tonio Fajardo Work Phone: [facility] 05-24-2022 14:22-0400 Body temperature 98.2 [degF] Dr. Tonio Fajardo Work Phone: [facility] 05-24-2022 14:22-0400 Body weight 83.[address] Tonio Fajardo Work Phone: [facility] 05-24-2022 14:22-0400 Diastolic blood pressure 74 mm[Hg] Dr. Tonio Fajardo Work Phone: [facility] 05-24-2022 14:22-0400 Heart rate 74 /min Dr. Tonio Fajardo Work Phone: [facility] 05-24-2022 14:22-0400 Respiratory rate 15 /min Dr. Tonio Fajardo Work Phone: [facility] 05-24-2022 14:22-0400 SaO2% (BldA) [Mass fraction] 96 % Dr. Tonio Fajardo Work Phone: [facility] 05-24-2022 14:22-0400 Systolic blood pressure 135 mm[Hg] Dr. Tonio Fajardo Work Phone: [facility] 05-24-2022 13:26-0400 Body temperature 96.7 [degF] Dr. Tonio Fajardo Work Phone: [facility] Work Phone: 05-24-2022 13:26-0400 Diastolic blood pressure 57 mm[Hg] Dr. Tonio Fajardo Work Phone: [facility] Work Phone: 05-24-2022 13:26-0400 Heart rate 81 /min Dr. Tonio Fajardo Work Phone: [facility] Work Phone: 05-24-2022 13:26-0400 Respiratory rate 18 /min Dr. Tonio Fajardo Work Phone: [facility] Work Phone: 05-24-2022 13:26-0400 Systolic blood pressure 141 mm[Hg] Dr. Tonio Fajardo Work Phone: [facility] Work Phone: 05-17-2022 15:07-0400 Body temperature 97.5 [degF] Dr. Tonio Fajardo Work Phone: [facility] Work Phone: 05-17-2022 15:07-0400 Diastolic blood pressure 63 mm[Hg] Dr. Tonio Fajardo Work Phone: [facility] Work Phone: 05-17-2022 15:07-0400 Heart rate 71 /min Dr. Tonio Fajardo Work Phone: [facility] Work Phone: 05-17-2022 15:07-0400 Respiratory rate 20 /min Dr. Tonio Fajardo Work Phone: [facility] Work Phone: 05-17-2022 15:07-0400 Systolic blood pressure 142 mm[Hg] Dr. Tonio Fajardo Work Phone: [facility] Work Phone: 05-11-2022 16:01-0400 Body height 167.[address] Tonio Fajardo Work Phone: [facility] Work Phone: 05-11-2022 15:54-0400 Body mass index (BMI) [Ratio] 29.4 kg/m2 Dr. Tonio Fajardo Work Phone: [facility] Work Phone: 05-11-2022 15:54-0400 Body temperature 98.4 [degF] Dr. Tonio Fajardo Work Phone: [facility] Work Phone: 05-11-2022 15:54-0400 Body weight 82.[address] Tonio Fajardo Work Phone: [facility] Work Phone: 05-11-2022 15:54-0400 Diastolic blood pressure 67 mm[Hg] Dr. Tonio Fajardo Work Phone: [facility] Work Phone: 05-11-2022 15:54-0400 Heart rate 63 /min Dr. Tonio Fajardo Work Phone: [facility] Work Phone: 05-11-2022 15:54-0400 Respiratory rate 16 /min Dr. Tonio Fajardo Work Phone: [facility] Work Phone: 05-11-2022 15:54-0400 SaO2% (BldA) [Mass fraction] 96 % Dr. Tonio Fajardo Work Phone: [facility] Work Phone: 05-11-2022 15:54-0400 Systolic blood pressure 100 mm[Hg] Dr. Tonio Fajardo Work Phone: [facility] Work Phone: 05-11-2022 08:32-0400 Body mass index (BMI) [Ratio] 29.4 kg/m2 Dr. Tonio Fajardo Work Phone: [facility] Work Phone: 05-11-2022 08:32-0400 Body temperature 97.2 [degF] Dr. Tonio Fajardo Work Phone: [facility] Work Phone: 05-11-2022 08:32-0400 Body weight 82.[address] Tonio Fajardo Work Phone: [facility] Work Phone: 05-11-2022 08:32-0400 Diastolic blood pressure 62 mm[Hg] Dr. Tonio Fajardo Work Phone: [facility] Work Phone: 05-11-2022 08:32-0400 Heart rate 73 /min Dr. Tonio Fajardo Work Phone: [facility] Work Phone: 05-11-2022 08:32-0400 Respiratory rate 20 /min Dr. Tonio Fajardo Work Phone: [facility] Work Phone: 05-11-2022 08:32-0400 SaO2% (BldA) [Mass fraction] 96 % Dr. Tonio Fajrado Work Phone: [facility] Work Phone: 05-11-2022 08:32-0400 Systolic blood pressure 145 mm[Hg] Dr. Tonoi Fajardo Work Phone: [facility] Work Phone: 04-28-2022 11:40-0400 Body temperature 97.4 [degF] Dr. Tonio Fajardo Work Phone: [facility] Work Phone: 04-28-2022 11:40-0400 Diastolic blood pressure 46 mm[Hg] Dr. Tonio Fajardo Work Phone: [facility] Work Phone: 04-28-2022 11:40-0400 Heart rate 66 /min Dr. Tonio Fajardo Work Phone: [facility] Work Phone: 04-28-2022 11:40-0400 Respiratory rate 20 /min Dr. Tonio Fajardo Work Phone: [facility] Work Phone: 04-28-2022 11:40-0400 SaO2% (BldA) [Mass fraction] 96 % Dr. Tonio Fajardo Work Phone: [facility] Work Phone: 04-28-2022 11:40-0400 Systolic blood pressure 138 mm[Hg] Dr. Tonio Fajardo Work Phone: [facility] Work Phone: 04-28-2022 09:44-0400 Inhaled oxygen flow rate 2 L/min Dr. Tonio Fajardo Work Phone: [facility] Work Phone: 04-28-2022 08:15-0400 Body height 167.[address] Tonio Fajardo Work Phone: [facility] Work Phone: 04-28-2022 08:15-0400 Body mass index (BMI) [Ratio] 28 kg/m2 Dr. Tonio Fajardo Work Phone: [facility] Work Phone: 04-28-2022 08:15-0400 Body weight 78.[address] Tonio Fajardo Work Phone: [facility] Work Phone: 04-26-2022 13:47-0400 Body temperature 97 [degF] Dr. Tonio Fajardo Work Phone: [facility] Work Phone: 04-26-2022 13:47-0400 Diastolic blood pressure 33 mm[Hg] Dr. Tonio Fajardo Work Phone: [facility] Work Phone: 04-26-2022 13:47-0400 Heart rate 80 /min Dr. Tonio Fajardo Work Phone: [facility] Work Phone: 04-26-2022 13:47-0400 Respiratory rate 18 /min Dr. Tonio Fajardo Work Phone: [facility] Work Phone: 04-26-2022 13:47-0400 Systolic blood pressure 118 mm[Hg] Dr. Tonio Fajardo Work Phone: [facility] Work Phone: 04-14-2022 11:11-0400 Body height 167.[address] Tonio Fajardo Work Phone: [facility] Work Phone: 04-14-2022 11:11-0400 Body mass index (BMI) [Ratio] 30.7 kg/m2 Dr. Tonio Fajardo Work Phone: [facility] Work Phone: 04-14-2022 11:11-0400 Body temperature 95.8 [degF] Dr. Tonio Fajardo Work Phone: [facility] Work Phone: 04-14-2022 11:11-0400 Body weight 86.[address] Tonio Fajardo Work Phone: [facility] Work Phone: 04-14-2022 11:11-0400 Diastolic blood pressure 68 mm[Hg] Dr. Tonio Fajardo Work Phone: [facility] Work Phone: 04-14-2022 11:11-0400 Heart rate 34 /min Dr. Tonio Fajardo Work Phone: [facility] Work Phone: 04-14-2022 11:11-0400 Respiratory rate 16 /min Dr. Tonio Fajardo Work Phone: [facility] Work Phone: 04-14-2022 11:11-0400 SaO2% (BldA) [Mass fraction] 91 % Dr. Tonio Fajardo Work Phone: [facility] Work Phone: 04-14-2022 11:11-0400 Systolic blood pressure 163 mm[Hg] Dr. Tonio Fajardo Work Phone: [facility] Work Phone: 04-14-2022 10:36-0400 Body temperature 96.7 [degF] Dr. Tonio Fajardo Work Phone: [facility] Work Phone: 04-14-2022 10:36-0400 Diastolic blood pressure 71 mm[Hg] Dr. Tonio Fajardo Work Phone: [facility] Work Phone: 04-14-2022 10:36-0400 Heart rate 64 /min Dr. Tonio Fajardo Work Phone: [facility] Work Phone: 04-14-2022 10:36-0400 Respiratory rate 23 /min Dr. Tonio Fajardo Work Phone: [facility] Work Phone: 04-14-2022 10:36-0400 SaO2% (BldA) [Mass fraction] 94 % Dr. Tonio Fajardo Work Phone: [facility] Work Phone: 08-26-2022 10:36-0400 Systolic blood pressure 153 mm[Hg] Dr. Tonio Fajardo Work Phone: [facility] Work Phone: 04-14-2022 08:24-0400 Body mass index (BMI) [Ratio] 30.2 kg/m2 Dr. Tonio Fajardo Work Phone: [facility] Work Phone: 04-14-2022 08:24-0400 Body weight 85.[address] Tonio Fajardo Work Phone: [facility] Work Phone: 04-12-2022 13:50-0400 Body temperature 97.8 [degF] Dr. Tonio Fajardo Work Phone: [facility] Work Phone: 04-12-2022 13:50-0400 Diastolic blood pressure 74 mm[Hg] Dr. Tonio Fajardo Work Phone: [facility] Work Phone: 04-12-2022 13:50-0400 Heart rate 69 /min Dr. Tonio Fajardo Work Phone: [facility] Work Phone: 04-12-2022 13:50-0400 Respiratory rate 18 /min Dr. Tonio Fajardo Work Phone: [facility] Work Phone: 04-12-2022 13:50-0400 Systolic blood pressure 107 mm[Hg] Dr. Tonio Fajardo Work Phone: [facility] Work Phone: 04-05-2022 13:34-0400 Body temperature 101.61 [degF] Steven Melgar APRN.SAMPLE EXAMINER Work Phone: [facility] 04-05-2022 13:34-0400 Body weight 87.09 kg Steven Melgar APRN.SAMPLE EXAMINER Work Phone: [facility] 04-05-2022 13:34-0400 Diastolic blood pressure 76 mm[Hg] Steven Praisler-Wood GOSPE[employer] SINGER.SAMPLE EXAMINER Work Phone: [facility] 04-05-2022 13:34-0400 Heart rate 76 /min Steven Praisler-Wood GOSPEL SINGER.SAMPLE EXAMINER Work Phone: [facility] 04-05-2022 13:34-0400 Respiratory rate 16 /min Steven Praisler-Wood GOSPEL SINGER.SAMPLE EXAMINER Work Phone: [facility] 04-05-2022 13:34-0400 SaO2% (BldA) [Mass fraction] 94 % Steven Praisler-Wood GOSPEL SINGER.SAMPLE EXAMINER Work Phone: [facility] 04-05-2022 13:34-0400 Systolic blood pressure 122 mm[Hg] Steven Praisler-Wood GOSPEL SINGER.SAMPLE EXAMINER Work Phone: [facility] 03-01-2022 13:16-0400 Body temperature 97.6 [degF] Dr. Tonio Fajardo Work Phone: [facility] Work Phone: 03-01-2022 13:16-0400 Diastolic blood pressure 73 mm[Hg] Dr. Tonio Fajardo Work Phone: [facility] Work Phone: 03-01-2022 13:16-0400 Heart rate 70 /min Dr. Tonio Fajardo Work Phone: [facility] Work Phone: 03-01-2022 13:16-0400 Respiratory rate 18 /min Dr. Tonio Fajardo Work Phone: [facility] Work Phone: 03-01-2022 13:16-0400 Systolic blood pressure 141 mm[Hg] Dr. Tonio Fajardo Work Phone: [facility] Work Phone: 02-08-2022 13:06-0400 Body temperature 98.1 [degF] Dr. Tonio Fajardo Work Phone: [facility] Work Phone: 02-08-2022 13:06-0400 Diastolic blood pressure 63 mm[Hg] Dr. Tonio Fajardo Work Phone: [facility] Work Phone: 02-08-2022 13:06-0400 Heart rate 83 /min Dr. Tonio Fajardo Work Phone: [facility] Work Phone: 02-08-2022 13:06-0400 Respiratory rate 20 /min Dr. Tonio Fajardo Work Phone: [facility] Work Phone: 02-08-2022 13:06-0400 Systolic blood pressure 131 mm[Hg] Dr. Tonio Fajardo Work Phone: [facility] Work Phone: 01-17-2022 10:56-0400 Body height 167.[address] Tonio Fajardo Work Phone: [facility] Work Phone: 01-17-2022 10:56-0400 Body mass index (BMI) [Ratio] 31.9 kg/m2 Dr. Tonio Fajardo Work Phone: [facility] Work Phone: 01-17-2022 10:56-0400 Body weight 89.[address] Tonio Fajardo Work Phone: [facility] Work Phone: 01-17-2022 10:56-0400 Diastolic blood pressure 44 mm[Hg] Dr. Tonio Fajardo Work Phone: [facility] Work Phone: 01-17-2022 10:56-0400 Heart rate 64 /min Dr. Tonio Fajardo Work Phone: [facility] Work Phone: 01-17-2022 10:56-0400 Respiratory rate 22 /min Dr. Tonio Fajardo Work Phone: [facility] Work Phone: 01-17-2022 10:56-0400 SaO2% (BldA) [Mass fraction] 95 % Dr. Tonio Fajardo Work Phone: [facility] Work Phone: 01-17-2022 10:56-0400 Systolic blood pressure 101 mm[Hg] Dr. Tonio Fajardo Work Phone: [facility] Work Phone: 01-17-2022 10:56-0400 Body height 167.[address] Tonio Fajardo Work Phone: [facility] Work Phone: 01-17-2022 10:56-0400 Body mass index (BMI) [Ratio] 31.9 kg/m2 Dr. Tonio Fajardo Work Phone: [facility] Work Phone: 01-17-2022 10:56-0400 Body weight 89.[address] Tonio Fajardo Work Phone: [facility] Work Phone: 01-17-2022 10:56-0400 Diastolic blood pressure 44 mm[Hg] Dr. Tonio Fajardo Work Phone: [facility] Work Phone: 01-17-2022 10:56-0400 Heart rate 64 /min Dr. Tonio Fajardo Work Phone: [facility] Work Phone: 01-17-2022 10:56-0400 Respiratory rate 22 /min Dr. Tonio Fajardo Work Phone: [facility] Work Phone: 01-17-2022 10:56-0400 SaO2% (BldA) [Mass fraction] 95 % Dr. Tonio Fajardo Work Phone: [facility] Work Phone: 01-17-2022 10:56-0400 Systolic blood pressure 101 mm[Hg] Dr. Tonio Fajardo Work Phone: [facility] Work Phone: 01-04-2022 12:59-0400 Body temperature 96.4 [degF] Dr. Tonio Fajardo Work Phone: [facility] Work Phone: 01-04-2022 12:59-0400 Diastolic blood pressure 64 mm[Hg] Dr. Tonio Fajardo Work Phone: [facility] Work Phone: 01-04-2022 12:59-0400 Heart rate 70 /min Dr. Tonio Fajardo Work Phone: [facility] Work Phone: 01-04-2022 12:59-0400 Respiratory rate 16 /min Dr. Tonio Fajardo Work Phone: [facility] Work Phone: 01-04-2022 12:59-0400 Systolic blood pressure 135 mm[Hg] Dr. Tonio Fajardo Work Phone: [facility] Work Phone: 12-21-2021 13:10-0400 Body temperature 97 [degF] [facility] Work Phone: 12-21-2021 13:10-0400 Diastolic blood pressure 62 mm[Hg] [facility] Work Phone: 12-21-2021 13:10-0400 Heart rate 88 /min [facility] Work Phone: 12-21-2021 13:10-0400 Systolic blood pressure 173 mm[Hg] [facility] Work Phone: 12-18-2021 00:38-0400 Respiratory rate 16 /min [facility] Work Phone: 11-29-2021 13:03-0400 Body temperature 97.4 [degF] [facility] Work Phone: 11-29-2021 13:03-0400 Diastolic blood pressure 43 mm[Hg] [facility] Work Phone: 11-29-2021 13:03-0400 Heart rate 69 /min [facility] Work Phone: 11-29-2021 13:03-0400 Respiratory rate 16 /min [facility] Work Phone: 11-29-2021 13:03-0400 Systolic blood pressure 134 mm[Hg] [facility] Work Phone: 11-09-2021 13:07-0400 Body temperature 97 [degF] [facility] Work Phone: 11-09-2021 13:07-0400 Diastolic blood pressure 41 mm[Hg] [facility] Work Phone: 11-09-2021 13:07-0400 Heart rate 73 /min [facility] Work Phone: 11-09-2021 13:07-0400 Respiratory rate 18 /min [facility] Work Phone: 11-09-2021 13:07-0400 Systolic blood pressure 126 mm[Hg] [facility] Work Phone: Encounters Encounter Date Encounter Type Care Provider Facility Start: 05-04-2025 ambulatory Tonio Fajardo Facility: [facility] Start: 05-04-2025 Jakob Goddard DO -[facility] Start: 05-04-2025 End: 05-04-[address] Tonio Fajardo DO Work Phone: -Endoscopy Start: 05-04-2025 End: 05-04-2025 Jakob Goddard DO -Endoscopy Work Phone: Start: 04-28-2025 End: 04-28-[address] Tonio Fajardo DO Work Phone: -[facility] Start: 04-28-2025 End: 04-28-2025 Carol Sousa [facility] Work Phone: Start: 04-23-2025 Evaluation and management of inpatient [facility] Facility:[facility] Start: 04-23-2025 Dr. Valdez Olivo MD - ansitional Care Unit Start: 04-23-2025 Dr. Tonio Mccallum DO [facility] Work Phone: Start: 04-21-2025 Dr. Tonio Mccallum DO [facility] Work Phone: Start: 04-20-2025 Dr. Tonio Mccallum [facility] Work Phone: Start: 04-20-2025 ambulatory [facility] Facility: [facility] Start: 04-20-2025 End: 04-23-2025 Evaluation and management of inpatient Dr. Tonio Fajardo DO Work Phone: -Progressive Care Unit Start: 04-20-2025 End: 04-23-2025 Dr. Tonio Mccallum DO [facility] Work Phone: Start: 04-19-2025 ambulatory [facility] Facility: [facility] Start: 04-19-[address] Tonio Fajardo DO Work Phone: -Progressive Care Unit Start: 04-19-2025 Dr. Kwaku Narayanan DO [facility] Unit Work Phone: Start: 04-19-2025 End: 04-19-[address] Tonio Fajardo DO Work Phone: -[facility] Start: 04-19-2025 End: 04-19-2025 Dr. Tonio Fajardo DO Work Phone: -Emergency Department Work Phone: Start: 04-17-2025 End: 04-19-2025 Evaluation and management of inpatient Dr. Tonio Fajardo DO Work Phone: -Transitional Care Unit Start: 04-17-2025 End: 04-19-2025 Dr. Valdez Olivo MD -Transitional Care Unit Start: 04-16-2025 ambulatory Tonio Fajardo Facility: [facility] Start: 04-13-2025 End: 04-17-2025 Evaluation and management of inpatient DR DAVID STERLING MD [facility] Start: 04-12-2025 End: 04-13-2025 Dr. Tonio [...] Unit Start: 04-10-2025 End: 04-10-2025 Carol Sousa [facility] Work Phone: Start: 04-10-2025 Dr. Nicola Roman MD - [facility] Work Phone: Start: 04-10-2025 End: 04-10-[address] Tonio Fajardo DO Work Phone: -[facility] Start: 04-10-2025 End: 04-10-2025 Dr. Issa Looney MD -[facility] Work Phone: Start: 04-09-2025 Dr. Santos Hsu MD -[facility] Start: 04-09-2025 Dr. Nicola Roman MD -[facility] Work Phone: Start: 04-08-2025 Dr. Issa Looney MD -[facility] Start: 04-08-2025 Dr. Nicola Roman MD - [facility] Work Phone: Start: 04-07-2025 Dr. Nicola Roman MD -[facility] Work Phone: Start: 04-06-2025 Dr. Deric Lantigua MD [facility] Work Phone: Start: 04-05-2025 ambulatory Davon Flynn ity:[facility] Start: 04-05-2025 End: 04-10-2025 Evaluation and management [...] 04-02-2025 End: 04-02-2025 ambulatory Carmelina E Aida Facility:[facility] Start: 03-27-2025 End: 03-27-[address] Tonio Fajardo DO Work Phone: -Pulmonary Services/Neurology Start: 03-27-2025 End: 03-27-2025 Patient encounter procedure Leslie DAMIAN -Pulmonary Services/Neurology Work Phone: Start: 03-27-2025 End: 03-27-2025 Leslie DAMIAN -Pulmonary Services/Neurology Work Phone: Start: 03-27-2025 End: 03-27-2025 ambulatory Leslie DAMIAN Facility:[facility] Start: 03-18-2025 End: 03-18-[address] Tonio Fajardo DO Work Phone: -Laboratory [facility] Start: 03-18-2025 End: 03-18-[address] Tonio Fajardo DO -Laboratory [place] [facility] Start: 03-18-2025 End: 03-18-2025 Dr. Tonio Fajardo DO -Laboratory [facility] Start: 03-17-2025 End: 03-17-2025 Patient encounter procedure Leslie Arriaga [facility] Work Phone: Start: 03-17-2025 End: 03-17-2025 Leslie Arriaga [place] -[facility] Work Phone: Start: 03-17-2025 End: 03-18-[address] Tonio Fajardo DO Work Phone: [facility] Start: 03-15-2025 End: 03-15-2025 Dr. Alex Matias MD -Emergency [facility] t Work Phone: Start: 03-15-2025 End: 03-15-2025 Emergency department patient visit Dr. Tonio Fajardo DO Work Phone: -Emergency Department Work Phone: Start: 03-09-2025 Non-patient / Non-visit Dr. Deric Lantigua MD -[facility] Work Phone: Start: 03-09-2025 Dr. Deric Lantigua MD [facility] Work Phone: Start: 03-09-2025 Non-patient / Non-visit Dr. Willian Glaser MD -[facility] Start: 03-09-2025 Dr. Willian Glaser MD [facility] Start: 03-08-2025 Non-patient / Non-visit Dr. Marjorie castellano MD [facility] Start: 03-08-2025 Dr. Marjorie Green MD [facility] Start: 03-07-2025 Non-patient / Non-visit Dr. Deric Lantigua MD [facility] Work Phone: Start: 03-07-2025 Dr. Deric Lantigua MD -[facility] Work Phone: Start: 03-06-2025 Non-patient / Non-visit Dr. Deric Lantigua MD -[facility] Work Phone: Start: 03-06-2025 Dr. Deric Lantigua MD -[facility] Work Phone: Start: 03-06-2025 Non-patient / Non-visit Dr. Marjorie castellano MD [facility] Start: 03-06-2025 Dr. Marjorie Green MD [facility] Start: 03-05-2025 ambulatory Marjorie Peter Facility:[facility] Start: 03-05-2025 Non-patient / Non-[facility] Start: 03-05-2025 Dr. Marjorie Green MD [facility] Start: 03-05-2025 Non-patient / Non-visit Dr. Deric Lantigua MD -[facility] Work Phone: Start: 03-05-2025 Dr. Deric Lantigua MD -[facility] Work Phone: Start: 03-04-2025 ambulatory Nicola Mayesi ty:[facility] Start: 03-04-2025 End: 03-09-2025 Evaluation and management of inpatient Dr. Nicola Lindsey DO -Progressive Care Unit Work Phone: Start: 03-04-2025 End: 03-09-2025 Dr. Deric Lantigua MD -Progressive Care U nit Work Phone: Start: 11-06-[address] Russ Zamora MD -[facility] Start: 11-06-2024 End: 11-06-[address] Russ Zamora MD -[facility] Work Phone: Start: 11-06-2024 End: 11-06-2024 ambulatory [facility] Facility:[facility] Start: 10-30-2024 End: 10-30-[address] Tonio Fajardo DO Work Phone: [facility] Work Phone: Start: 10-30-2024 End: 10-30-[address] Russ Zamora MD -Cat Scan, [facility] Work Phone: Start: 10-30-2024 End: 10-30-2024 ambulatory Russ Zamora Facility:[facility] Start: 10-23-2024 End: 10-23-2024 Patient encounter procedure Lorie Mart NP-C -[facility] Work Phone: Start: 10-23-2024 End: 10-23-2024 ambulatory Tonio Fajardo Facility:[facility] Start: 10-20-2024 End: 10-20-[address] Tonio Fajardo DO Work Phone: [facility] Work Phone: Start: 10-20-2024 End: 10-20-[address] Tonio Fajardo DO -Laboratory, [facility] Start: 10-20-2024 End: 10-20-2024 ambulatory Tonio Fajardo Facility:[facility] Start: 10-17-2024 ambulatory Tonio Scotty Facility: [facility] Start: 10-17-2024 Non-patient / Non-visit Dr. Tyrell zuniga DO -[facility] Start: 10-16-2024 End: 10-16-[address] Tonio Fajardo DO Work Phone: [facility] Work Phone: Start: 10-16-2024 End: 10-16-2024 Patient encounter procedure Lorie ZHONG -Pulmonary Services/Neurology Work Phone: Start: 10-16-2024 End: 10-16-2024 ambulatory Tonio Scotty Facility:[facility] Start: 09-25-2024 End: 09-25-2024 Patient encounter procedure Leslie DAMIAN -[facility] Work Phone: Start: 09-25-2024 End: 09-25-2024 ambulatory Tonio Scotty Facility:[facility] Start: 09-25-2024 End: 09-25-2024 ambulatory Tonio Scotty Facility:[facility] Start: 07-03-2024 End: 07-03-[address] Joaquim Suárez [facility] -Laboratory, Specimen Work Phone: Start: 07-03-2024 End: 07-03-2024 ambulatory Tonio Scotty Facility:[facility] Start: 06-17-2024 End: 06-17-2024 ambulatory Tonio [facility] Facility:[facility] Start: 12-24-2023 End: 12-24-[address] Tonio Fajardo Work Phone: [facility] Work Phone: Start: 12-24-2023 End: 12-24-[address] Tonio Fajardo Work Phone: [facility]-Laboratory, Specimen Work Phone: Start: 11-12-2023 End: 11-12-[address] Tonio Fajardo Work Phone: [facility] Work Phone: Start: 11-06-[address] Tonio Fajardo Work Phone: [facility] Start: 10-31-2023 End: 10-31-[address] Tonio Fajardo Work Phone: [facility] Work Phone: Start: 10-18-2023 End: 10-18-[address] Tonio Fajardo Work Phone: [facility] Work Phone: Start: 10-12-2023 End: 10-12-[address] Tonio Fajardo Work Phone: [facility] Work Phone: Start: 10-12-2023 End: 10-12-[address] Tonio Fajardo Work Phone: [facility]-Cat Scan, [facility] Work Phone: Start: 08-29-2023 End: 08-29-[address] Tonio Fajardo Work Phone: [facility] Work Phone: Start: 08-22-2023 Non-patient / Non-visit Dr. Min Fajardo Work Phone: [facility] Start: 08-22-2023 End: 08-22-[address] Tonio Fajardo Work Phone: [facility]-Cardiovascula r Services Work Phone: Start: 07-26-2023 End: 07-26-[address] Tonio Fajardo Work Phone: [facility] Work Phone: Start: 07-26-2023 End: 07-26-[address] Tonio Fajardo Work Phone: [facility] Work Phone: Start: 07-25-2023 End: 07-25-[address] Tonio Fajardo Work Phone: [facility]-Pulmonary Medicine [facility] Work Phone: Start: 06-22-2023 End: 06-22-[address] Tonio Fajardo Work Phone: [facility] Work Phone: Start: 06-22-2023 End: 06-22-[address] Tonio Fajardo Work Phone: [facility]-Laboratory, Specimen Work Phone: Start: 06-08-2023 End: 06-08-2023 Admission to same day surgery center Dr[facility] Start: 06-08-2023 End: 06-08-[address] Tonio Fajardo Work Phone: [facility] Work Phone: Start: 05-02-2023 End: 05-19-[address] [facility]ardo [facility] Work Phone: Start: 04-20-2023 Non-patient / Non-visit Dr. Min Fajardo Work Phone: [facility] Start: 04-18-2023 End: 04-19-[address] Tonio Fajardo Work Phone: [facility] Work Phone: Start: 04-18-2023 End: 04-19-[address] Ton[facility]ajardo [facility] Work Phone: Start: 04-17-[address] Tonio Fajardo Work Phone: [facility] Start: 04-17-2023 End: 04-17-[address] Tonio Fajardo Work Phone: [facility] Work Phone: Start: 04-10-2023 End: 04-10-[address] Tonio Fajrado Work Phone: [facility] Work Phone: Start: 04-10-2023 End: 04-10-[address] Tonio Fajardo Work Phone: [facility] Work Phone: Start: 04-02-2023 Non-patient / Non-visit Dr. Min Fajardo Work Phone: [facility] Start: 04-02-[address] Tonio Fajardo Work Phone: [facility] Work Phone: Start: 03-19-2023 Non-patient / Non-visit Dr. Min Fajardo Work Phone: [facility] Start: 03-19-2023 End: 03-19-[address] Tonio Fajardo Work Phone: [facility] Work Phone: Start: 03-19-2023 End: 03-19-[address] Tonio Fajardo Work Phone: [facility] Work Phone: Start: 03-05-2023 Non-patient / Non-visit Dr. Min Fajardo Work Phone: [facility] Start: 02-23-2023 End: 02-23-[address] Tonio Fajardo Work Phone: [facility] Work Phone: Start: 02-19-2023 Non-patient / Non-visit Dr. Min Fajardo Work Phone: [facility] Start: 02-05-2023 Non-patient / Non-visit Dr. Min Fajardo Work Phone: [facility] Start: 02-05-2023 End: 02-16-[address] Tonio Fajardo Work Phone: [facility] Work Phone: Start: 02-05-2023 End: 02-16-[address] Tonio Fajardo Work Phone: [facility] Work Phone: Start: 01-22-2023 Non-patient / Non-visit Dr. Min Fajardo Work Phone: [facility] Start: 01-08-2023 Non-patient / Non-visit Dr. Min Fajardo Work Phone: [facility] Start: 01-08-2023 End: 01-17-[address] Tonio Fajardo Work Phone: [facility] Work Phone: Start: 01-08-2023 End: 01-17-[address] Tonio Fajardo Work Phone: [facility] Start: 12-30-2022 End: 12-31-2022 Emergency department patient visit Dr. Tonio Fajardo Work Phone: [facility]-Emergency Department Start: 12-25-2022 Non-patient / Non-visit Dr. Min Fajardo Work Phone: [facility] Start: 12-25-[address] [facility]ardo [facility] Start: 12-18-2022 Non-patient / Non-visit Dr. Min Fajardo Work Phone: [facility] Start: 12-12-2022 End: 12-12-[address] [facility]ardo [facility] Start: 12-11-2022 Non-patient / Non-visit Dr. Min Fajardo Work Phone: [facility] Start: 12-11-2022 End: 12-17-[address] Tonio Fajardo Work Phone: [facility] Work Phone: Start: 12-11-2022 End: 12-17-[address] Tonio Fajardo Work Phone: [facility] Start: 12-06-2022 Non-patient / Non-visit Dr. Min Fajardo Work Phone: [facility] Start: 11-27-2022 Non-patient / Non-visit Dr. Min Fajardo Work Phone: [facility] Start: 11-20-2022 Non-patient / Non-visit Dr. Min Fajardo Work Phone: [facility] Start: 11-08-2022 Non-patient / Non-visit Dr. Min Fajardo Work Phone: [facility] Start: 11-08-2022 End: 11-17-[address] Tonio Fajardo Work Phone: [facility] Start: 10-30-2022 Non-patient / Non-visit Dr. Min Fajardo Work Phone: [facility] Start: 10-23-2022 Non-patient / Non-visit Dr. Min Fajardo Work Phone: [facility] Start: 10-18-2022 Non-patient / Non-visit Dr. Min Fajardo Work Phone: [facility] Start: 10-16-[address] Tonio Fajardo Work Phone: [facility] Start: 10-16-2022 End: 10-16-[address] Tonio Fajardo Work Phone: [facility] Start: 10-09-2022 Non-patient / Non-visit Dr. Min Fajardo Work Phone: [facility] Start: 10-09-2022 End: 10-09-[address] Tonio Fajardo Work Phone: [facility] Start: 10-09-2022 End: 10-17-[address] Tonio Fajardo Work Phone: [facility] Work Phone: Start: 10-09-2022 End: 10-17-[address] [facility]io [facility]ardo [facility] Start: 10-09-[address] Tonio Fajardo Work Phone: [facility] Start: 10-02-2022 Non-patient / Non-visit Dr. Min Fajardo Work Phone: [facility] Start: 10-02-2022 End: 10-02-[address] Tonio Fajardo Work Phone: [facility] Start: 09-25-2022 Non-patient / Non-visit Dr. Min Fajardo Work Phone: [facility] Start: 09-18-2022 Non-patient / Non-visit Dr. Min Fajardo Work Phone: [facility] Start: 09-18-2022 End: 09-19-[address] Tonio Fajardo Work Phone: [facility] Work Phone: Start: 09-18-2022 End: 09-19-[address] Tonio Fajardo [facility] Start: 08-29-2022 Non-patient / Non-visit Dr. Min Fajardo Work Phone: [facility] Start: 08-15-2022 Non-patient / Non-visit Dr. Min Fajardo Work Phone: [facility] Start: 08-15-2022 End: 08-19-[address] Tonio Fajardo Work Phone: [facility] Work Phone: Start: 08-15-2022 End: 08-19-[address] Tonio Fajardo Work Phone: [facility] Start: 08-08-2022 End: 08-08-[address] Tonio Fajardo Work Phone: [facility] Start: 08-01-2022 Non-patient / Non-visit Dr. Min Fajardo Work Phone: [facility] Start: 07-28-2022 Telephone encounter Steven Parra APRN.CNP Work Phone: [facility] Comment on above: Patient Update Start: 07-19-2022 End: 07-19-[address] Tonio Fajardo Work Phone: [facility] Start: 07-18-2022 Non-patient / Non-visit Dr. Min Fajardo Work Phone: [facility] Start: 07-18-2022 End: 07-19-[address] Tonio Fajardo Work Phone: [facility] Work Phone: Start: 07-18-2022 End: 07-19-[address] Tonio Fajardo Work Phone: [facility] Start: 07-17-2022 End: 07-17-[address] Tonio Fajardo Work Phone: [facility] Start: 07-09-[address] Tonio [facility] Start: 07-09-2022 Non-patient / Non-visit Dr. Min Fajardo Work Phone: [facility] Start: 07-05-2022 End: 07-05-[address] Tonio Fajardo Work Phone: [facility] Start: 06-28-2022 End: 06-28-[address] Tonio Fajardo Work Phone: [facility] Start: 06-26-2022 Non-patient / Non-visit Dr. Min Fajardo Work Phone: [facility] Start: 06-21-2022 End: 06-21-[address] Tonio Fajardo Work Phone: [facility] Start: 06-19-[address] Tonio Fajardo [facility] Start: 06-14-2022 End: 06-14-[address] Tonio Fajardo Work Phone: [facility] Start: 06-12-2022 Non-patient / Non-visit Dr. Min Fajardo Work Phone: [facility] Start: 06-12-2022 End: 06-19-[address] Tonio Fajardo Work Phone: [facility] Work Phone: Start: 06-12-2022 End: 06-19-[address] Tonio [facility]ardo [facility] Start: 06-06-2022 Non-patient / Non-visit Dr. Min Fajardo Work Phone: [facility] [place] Start: 06-02-2022 Non-patient / Non-visit Dr. Min Fajardo Work Phone: [facility] [place] Start: 06-02-2022 End: 06-02-[address] Tonio Fajardo Work Phone: [facility] Work Phone: Start: 06-02-2022 End: 06-02-[address] Tonio Fajardo Work Phone: [facility]-Pulmonary Services/Neurology Start: 06-01-2022 Non-patient / Non-visit Dr. Min Fajardo Work Phone: [facility] [place] Start: 06-01-[address] Tonio Fajardo Work Phone: [facility]-Radiation Oncology Start: 05-30-2022 Patient encounter status Dr. Tonio Fajardo Work Phone: [facility] Start: 05-30-2022 End: 05-30-[address] Tonio Fajardo Work Phone: [facility] Start: 05-29-2022 Non-patient / Non-visit Dr. Min Fajardo Work Phone: [facility] [place] Start: 05-29-[address] [facility] Start: 05-24-2022 End: 05-24-[address] Tonio Fajardo Work Phone: [facility] Start: 05-24-2022 Non-patient / Non-visit Dr. Min Fajardo Work Phone: [facility] Start: 05-24-[address] [facility]ajardo [facility] Start: 05-22-2022 End: 05-22-[address] Tonio Fajardo Work Phone: [facility] Work Phone: Start: 05-22-2022 End: 05-22-[address] Tonio Fajardo Work Phone: [facility] Start: 05-17-2022 Non-patient / Non-visit Dr. Min Fajardo Work Phone: [facility] Start: 05-17-2022 End: 05-19-[address] Tonio Fajardo Work Phone: [facility] Work Phone: Start: 05-17-2022 End: 05-19-[address] [facility] Start: 05-17-[address] Tonio Fajardo Work Phone: [facility] Start: 05-11-2022 End: 05-11-[address] Tonio Fajardo Work Phone: [facility] Start: 05-11-2022 End: 05-11-[address] [facility]ajardo [facility] Start: 04-28-2022 Non-patient / Non-visit Dr. Min Fajardo Work Phone: [facility] Start: 04-28-2022 End: 04-28-[address] Tonio Fajardo Work Phone: [facility] Work Phone: Start: 04-28-2022 End: 04-28-[address] Tonio Fajardo Work Phone: [facility] Start: 04-26-[address] [facility]ardo [facility] Start: 04-14-2022 End: 04-14-[address] Tonio Fajardo Work Phone: [facility] Work Phone: Start: 04-14-2022 End: 04-14-[address] Tonio Fajardo Work Phone: [facility] Start: 04-14-2022 End: 04-14-2022 Emergency department patient visit Dr. Tonio Fajardo Work Phone: [facility] Start: 04-12-2022 End: 04-12-[address] Tonio Fajardo Work Phone: [facility] Work Phone: Start: 04-12-2022 End: 04-12-[address] Tonio Fajardo Work Phone: [facility] Start: 04-12-2022 End: 04-19-[address] Tonio Fajardo Work Phone: [facility] Work Phone: Start: 04-12-2022 End: 04-19-[address] Tonio Fajardo Work Phone: [facility] Start: 04-12-[address] Tonio Fajardo Work Phone: [facility] Start: 04-06-2022 Telephone encounter Carlos Rivera MD Work Phone: [facility] Comment on above: Results (COVID+) Start: 04-05-2022 End: 04-05-2022 ambulatory TONIO FAJARDO Facility:[facility] Start: 04-05-2022 Telephone encounter Steven Parra APRN.CNP Work Phone: [facility] Comment on above: Results Start: 04-05-2022 End: 04-05-2022 [facility] Comment on above: Acute cough [R05.1] Start: 04-05-2022 End: 04-05-2022 Patient encounter procedure Steven Melgar APRN.CNP Work Phone: [facility] Comment on above: Burning with urinati on (Primary Dx); Acute cough; Suspected COVID-19 virus infection Start: 03-01-2022 End: 03-19-[address] Tonio Fajardo Work Phone: [facility] Start: 02-08-2022 End: 02-16-[address] Tonio Fajardo Work Phone: [facility] Start: 01-17-2022 End: 01-17-[address] Tonio Fajardo Work Phone: [facility] Start: 01-04-2022 End: 01-17-[address] Tonio Fajardo Work Phone: [facility] Start: 12-21-2021 Registered Recurring [facility] Start: 12-19-2021 End: 12-19-2021 Patient encounter procedure [facility] Start: 11-29-2021 End: 12-17-2021 [facility] Start: 11-09-2021 End: 11-17-2021 Nutrition therapy [facility] Procedures Date Procedure Procedure Detail Performing Clinician Start: 05-04-[address] Tonio bhagat DO Work Phone: Start: 05-01-2025 Blood count smear mcrscp w/mnl difrntl wbc count Dr. Tonio Fajardo DO Work Phone: Start: 05-01-[address] Tonio Fajardo DO Work Phone: Start: 05-01-2025 Mean corpuscular hemoglobin concentration determination Dr. Tonio Fajardo DO Work Phone: Start: 05-01-2025 Nucleated red blood cell count procedure Dr. Tonio Fajardo DO Work Phone: Start: 05-01-2025 Platelet mean volume determination Dr. Silvana Fajardo DO Work Phone: Start: 04-30-2025 Measurement of occult blood in stool specimen using immunoassay Dr. Tonio Fajardo DO Work Phone: Start: 04-30-2025 X-ray of chest, PA and lateral views Dr. Tonio Fajardo DO Work Phone: Start: 04-24-2025 Blood count smear mcrscp w/mnl difrntl wbc count Dr. Tonio Fajardo DO Work Phone: Start: 04-24-[address] Tonio Fajardo DO Work Phone: Start: 04-24-2025 Mean corpuscular hemoglobin concentration determination Dr. Tonio Fajardo DO Work Phone: Start: 04-24-2025 Nucleated red blood cell count procedure Dr. Tonio Fajardo DO Work Phone: Start: 04-24-2025 Platelet mean volume determination Dr. Silvana Fajardo DO Work Phone: Start: 04-21-[address] Tonio Fajardo DO Work Phone: Start: 04-20-2025 Mean corpuscular hemoglobin concentration determination Dr. Tonio Fajardo DO Work Phone: Start: 04-20-2025 Platelet mean volume determination Dr. Silvana Fajardo DO Work Phone: Start: 04-19-2025 Serum inorganic phosphate measurement Dr. Tonio Fajardo DO Work Phone: Start: 04-19-2025 Plain chest X-ray Dr. Tonio Fajardo DO Work Phone: Start: 04-19-2025 Blood count smear mcrscp w/mnl difrntl wbc count Dr. Tonio Fajardo DO Work Phone: Start: 04-19-[address] Tonio Fajardo DO Work Phone: Start: 04-19-2025 Mean corpuscular hemoglobin concentration determination Dr. Tonio Fajardo DO Work Phone: Start: 04-19-2025 Nucleated red blood cell count procedure Dr. Tonio Fajardo DO Work Phone: Start: 04-19-2025 Platelet mean volume determination Dr. Silvana Fajardo DO Work Phone: Start: 04-18-2025 Blood count smear mcrscp w/mnl difrntl wbc count Dr. Tonio Fajardo DO Work Phone: Start: 04-18-[address] Tonio Fajardo DO Work Phone: Start: 04-18-2025 Mean corpuscular hemoglobin concentration determination Dr. Tonio Fajardo DO Work Phone: Start: 04-18-2025 Nucleated red blood cell count procedure Dr. Tonio Fajardo DO Work Phone: Start: 04-18-2025 Platelet mean volume determination Dr. Silvana Fajardo DO Work Phone: Start: 04-12-2025 Blood count smear mcrscp w/mnl difrntl wbc count Dr. Tonio Fajardo DO Work Phone: Start: 04-12-[address] Tonio Fajardo DO Work Phone: Start: 04-12-2025 Mean corpuscular hemoglobin concentration determination Dr. Tonio Fajardo DO Work Phone: Start: 04-12-2025 Nucleated red blood cell count procedure Dr. Tonio Fajardo DO Work Phone: Start: 04-12-2025 Platelet mean volume determination Dr. Silvana Fajardo DO Work Phone: Start: 04-12-2025 CT of chest without contrast Dr. Tonio Juarez DO Work Phone: Start: 04-12-2025 X-ray of chest, PA and lateral views Dr. Tonio Fajardo DO Work Phone: Start: 04-11-[address] Tonio Fajardo DO Work Phone: Start: 04-11-2025 Blood count smear mcrscp w/mnl difrntl wbc count Dr. Tonio Fajardo DO Work Phone: Start: 04-11-[address] Tonio Fajardo DO Work Phone: Start: 04-11-2025 Mean corpuscular hemoglobin concentration determination Dr. Tonio Fajardo DO Work Phone: Start: 04-11-2025 Nucleated red blood cell count procedure Dr. Tonio Fajardo DO Work Phone: Start: 04-11-2025 Platelet mean volume determination Dr. Silvana Fajardo DO Work Phone: Start: 04-10-2025 Blood count leukocyte wbc automated Dr. Tonio Fajardo DO Work Phone: Start: 04-10-2025 Glucose measurement, body fluid Dr. Tonio Fajardo DO Work Phone: Start: 04-10-[address] Tonio Fajardo DO Work Phone: Start: 04-10-[address] Min Fajardo DO Work Phone: Start: 04-10-[address] Tonio phillips DO Work Phone: Start: 04-10-[address] Tonio Fajardo DO Work Phone: Start: 04-10-2025 Microbial culture, body fluid Dr. Tonio davis DO Work Phone: Start: 04-10-2025 Calculation of international normalized ratio Dr. Tonio Fajardo DO Work Phone: Start: 04-10-2025 Ultrasonic guidance for thoracentesis Dr. Tonio Fajardo DO Work Phone: Start: 04-10-2025 CT of chest without contrast Dr. Tonio Juarez DO Work Phone: Start: 04-10-2025 Blood count smear mcrscp w/mnl difrntl wbc count Dr. Tonio Fajardo DO Work Phone: Start: 04-10-[address] Tonio Fajardo DO Work Phone: Start: 04-10-2025 Mean corpuscular hemoglobin concentration determination Dr. Tonio Fajardo DO Work Phone: Start: 04-10-2025 Nucleated red blood cell count procedure Dr. Tonio Fajardo DO Work Phone: Start: 04-10-2025 Platelet mean volume determination Dr. Silvana Fajardo DO Work Phone: Start: 04-09-2025 Plain chest X-ray Dr. Tonio Fajardo DO Work Phone: Start: 04-09-2025 Serum inorganic phosphate measurement Dr. Tonio Fajardo DO Work Phone: Start: 04-06-[address] Tonio Fajardo DO Work Phone: Start: 04-06-2025 Complete ultrasound of kidneys and bladder Dr. Tonio Fajardo DO Work Phone: Start: 04-06-2025 Plain chest X-ray Dr. Tonio Fajardo DO Work Phone: Start: 04-05-2025 Urine microscopy: red cells Dr. Tonio phillips DO Work Phone: Start: 04-05-2025 Urnls dip stick/tablet reagent auto microscopy Dr. Tonio Fajardo DO Work Phone: Start: 04-05-2025 Carbon dioxide measurement, partial pressure Dr. Tonio Fajarod DO Work Phone: Start: 04-05-2025 Gases blood o2 saturation only direct [place] Dr. Tonio Fajardo DO Work Phone: Start: 04-05-2025 Measurement of partial pressure of oxygen in blood Dr. Tonio Fajardo DO Work Phone: Start: 04-05-[address] Tonio Fajardo DO Work Phone: Start: 04-05-2025 X-ray of chest, PA and lateral views Dr. Tonio Fajardo DO Work Phone: Start: 04-05-2025 Blood count smear mcrscp w/mnl difrntl wbc count Dr. Tonio Fajardo DO Work Phone: Start: 04-05-[address] Tonio Fajardo DO Work Phone: Start: 04-05-2025 Mean corpuscular hemoglobin concentration determination Dr. Tonio Fajardo DO Work Phone: Start: 04-05-2025 Nucleated red blood cell count procedure Dr. Tonio Fajardo DO Work Phone: Start: 04-05-2025 Platelet mean volume determination Dr. Silvana Fajardo DO Work Phone: Start: 04-05-2025 Dr. Tonio Fajardo DO Work Phone: Start: 04-02-2025 Blood count smear mcrscp w/mnl difrntl wbc count Dr. Tonio Fajardo DO Work Phone: Start: 04-02-2025 Mean corpuscular hemoglobin concentration determination Dr. Tonio Fajardo DO Work Phone: Start: 04-02-2025 Nucleated red blood cell count procedure Dr. Tonio Fajardo DO Work Phone: Start: 04-02-2025 Platelet mean volume determination Dr. Silvana Fajardo DO Work Phone: Start: 03-18-2025 Blood count smear mcrscp w/mnl difrntl wbc count Dr. Tonio Fajardo DO Work Phone: Start: 03-18-2025 Mean corpuscular hemoglobin concentration determination Dr. Tonio Fajardo DO Work Phone: Start: 03-18-2025 Nucleated red blood cell count procedure Dr. Tonio Fajardo DO Work Phone: Start: 03-18-2025 Platelet mean volume determination Dr. Silvana Fajardo DO Work Phone: Start: 03-09-2025 Blood count smear mcrscp w/mnl difrntl wbc count Dr. Tonio Fajardo DO Work Phone: Start: 03-09-[address] Tonio Fajardo DO Work Phone: Start: 03-09-2025 Mean corpuscular hemoglobin concentration determination Dr. Tonio Fajardo DO Work Phone: Start: 03-09-2025 Nucleated red blood cell count procedure Dr. Tonio Fajardo DO Work Phone: Start: 03-09-2025 Platelet mean volume determination Dr. Silvana Fajardo DO Work Phone: Start: 03-06-[address] Tonio Fajardo DO Work Phone: Start: 03-06-2025 Serum inorganic phosphate measurement Dr. Tonio Fajardo DO Work Phone: Start: 03-05-[address] Tonio Fajardo DO Work Phone: Start: 03-05-2025 Total cholesterol:HDL ratio measurement Dr. Tonio Fajardo DO Work Phone: Start: 03-05-2025 Plain chest X-ray Dr. Tonio Fajardo DO Work Phone: Start: 03-04-2025 Urine microscopy: red cells Dr. Tonio phillips DO Work Phone: Start: 03-04-2025 Urnls dip stick/tablet reagent auto microscopy Dr. Tonio Fajardo DO Work Phone: Start: 03-04-[address] Tonio Fajardo DO Work Phone: Start: 03-04-2025 X-ray of chest, PA and lateral views Dr. Tonio Fajardo DO Work Phone: Start: 11-06-[address] Tonio Fajardo DO Work Phone: Start: 10-30-2024 CT of thorax and abdomen with contrast Dr. Tonio Fajardo DO Work Phone: Start: 09-25-2024 X-ray of chest, PA and lateral views Dr. Tonio Fajardo DO Work Phone: Start: 07-03-[address] Tonio phillips DO Work Phone: Start: 07-03-[address] Tonio Fajardo DO Work Phone: Start: 07-03-2024 Microbial culture, routine Dr. Tonio bhagat DO Work Phone: Start: 07-03-[address] Tonio Fajardo DO Work Phone: Start: 05-05-2024 Measurement of renal function Dr. Tonio davis DO Work Phone: Comment on above: GFR Calc Start: 01-28-[address] Tonio Fajardo DO Work Phone: Comment on above: Sent directly to testing facility per or dering physician. Start: 12-24-2023 Investigation of transfusion reaction Dr. Tonio Fajardo Work Phone: Start: 12-24-2023 Microbial culture, routine Dr. Tonio bhagat Work Phone: Start: 11-06-2023 PET study for localization of tumor Dr. Tonio Fajardo Work Phone: Start: 11-06-2023 Albumin/Globulin ratio Dr. Tonio Fajardo DO Work Phone: Start: 11-06-[address] Tonio Fajardo DO Work Phone: Start: 11-06-[address] Tonio Juarez DO Work Phone: Start: 11-06-2023 Urine lambda light chain measurement Dr. Tonio Fajardo DO Work Phone: Start: 10-12-2023 CT of thorax with contrast Dr. Tonio bhagat Work Phone: Start: 06-22-[address] Tonio phillips Work Phone: Start: 06-22-2023 Investigation of transfusion reaction Dr. Tonio Fajardo Work Phone: Start: 06-22-2023 Microbial culture, routine Dr. Tonio bhagat Work Phone: Start: 06-22-[address] Tonio Fajardo Work Phone: Start: 06-08-[address] Tonio Fajardo Work Phone: Start: 06-08-[address] Tonio Fajardo Work Phone: Start: 06-08-[address] Tonio Fajardo Work Phone: Start: 04-20-2023 X-ray of both feet Dr. Tonio Fajardo Work Phone: Start: 04-10-2023 CT of thorax with contrast Dr. Tonio bhagat Work Phone: Start: 02-23-2023 Plain chest X-ray Dr. Tonio Fajardo Work Phone: Start: 01-08-[address] Tonio phillips Work Phone: Start: 01-08-2023 Investigation of transfusion reaction Dr. Tonio Fajardo Work Phone: Start: 01-08-2023 Microbial culture, routine Dr. Tonio bhagat Work Phone: Start: 12-30-2022 Plain chest X-ray Dr. Tonio Fajardo Work Phone: Start: 12-30-2022 Bacteria identified in Blood by Culture Dr. Tonio Fajardo Work Phone: Start: 12-30-2022 SARS-CoV-2 & FLU Antigen (Rapid) Dr. Kim Fajardo Work Phone: Start: 12-30-[address] Tonio Fajardo Work Phone: Start: 10-09-2022 CT of thorax with contrast Dr. Tonio bhagat Work Phone: Start: 10-02-2022 Plain chest X-ray Dr. Tonio Fajardo Work Phone: Start: 05-22-2022 MRI of brain with contrast Dr. Tonio bhagat Work Phone: Start: 05-17-2022 Positron emission tomography with computed tomography Dr. Tonio Fajardo Work Phone: Start: 04-28-2022 Plain chest X-ray Dr. Tonio Fajardo Work Phone: Start: 04-28-2022 Biopsy/Inj or Needle Placement Dr. Tonio Fajardo Work Phone: Start: 04-28-2022 Plain chest X-ray Dr. Tonio Fajardo Work Phone: Start: 04-12-2022 CT of thorax with contrast Dr. Tonio bhagat Work Phone: Start: 04-05-2022 Radiologic exam chest 2 views Steven Melgar GOSPEL SINGER.SAMPLE EXAMINER Work Phone: Start: 04-05-2022 Urnls dip stick/tablet rgnt auto w/o microscopy Onelia Cuevas GOSPE[employer] SINGER.SAMPLE EXAMINER Work Phone: Start: 11-02-2021 X-ray of both [...] Treatment Date Care Activity Detail Author Start: 05-05-2025 Patient discharge [facility] Start: 05-04-2025 [facility] Start: 05-01-2025 Administration of bl ood product [facility] Start: 05-01-2025 [facility] Start: 04-30-2025 Referral to gastroenterology service [facility] Start: 04-29-2025 [facility] Start: 04-28-2025 [facility] Start: 04-25-2025 Speech therapy management [facility] Start: 04-24-2025 Speech therapy assessment [facility] Start: 04-24-2025 [facility] Start: 04-24-2025 Development of care plan [facility] Start: 04-24-2025 Developing a treatme nt plan [facility] Start: 04-24-2025 End: 04-24-2025 Consultation for treatment [facility] Start: 04-24-2025 Contact precautions [facility] Start: 04-23-2025 Following clinical p athway protocol [facility] Start: 04-23-2025 Admission procedure [facility] Start: 04-23-2025 Introduction of urin dakota catheter [facility] Start: 04-23-2025 Measuring intake and output [facility] Start: 04-23-2025 End: 04-24-2025 Patient referral to dietitian [facility] Start: 04-23-2025 Referral to occupati onal therapist [facility] Start: 04-23-2025 Referral to service [facility] Start: 04-23-2025 Verification routine [facility] Start: 04-23-2025 Vital signs measurements [facility] Start: 04-23-2025 End: 04-23-2025 [facility] Start: 04-23-2025 Patient discharge [facility] Start: 04-23-2025 Oxygen therapy [facility] Start: 04-22-2025 Inhalation therapy procedure [facility] Start: 04-20-2025 Admission procedure [facility] Start: 04-20-2025 [facility] Start: 04-19-2025 Following clinical p athway protocol [facility] Start: 04-19-2025 Ambulation without limitation [facility] Start: 04-19-2025 Assessment of risk o f venous thromboembolism [facility] Start: 04-19-2025 Care regimes management [facility] Start: 04-19-2025 Insertion of cathete r into peripheral vein [facility] Start: 04-19-2025 Measuring intake and output [facility] Start: 04-19-2025 Notification of physician [facility] Start: 04-19-2025 Oxygen therapy [facility] Start: 04-19-2025 Providing care accor ding to standard [facility] Start: 04-19-2025 Referral to occupati onal therapist [facility] Start: 04-19-2025 Referral to service [facility] Start: 04-19-2025 End: 04-19-2025 [facility] Start: 04-19-2025 End: 04-19-2025 Serum inorganic phosphate measurement [facility] Start: 04-19-2025 Verification routine [facility] Start: 04-19-2025 Hospital admission, emergency, from emergency room, medical nature [facility] Start: 04-19-2025 Admission procedure [facility] Start: 04-19-2025 End: 04-19-2025 [facility] Start: 04-19-2025 Patient discharge [facility] Start: 04-19-2025 Patient referral to dietitian [facility] Start: 04-18-2025 [facility] Start: 04-18-2025 Development of care plan [facility] Start: 04-18-2025 Developing a treatme nt plan [facility] Start: 04-18-2025 Consultation for treatment [facility] Start: 04-18-2025 Wound care [facility] Start: 04-17-2025 Admission procedure [facility] Start: 04-17-2025 Introduction of urin dakota catheter [facility] Start: 04-17-2025 Measuring intake and output [facility] Start: 04-17-2025 Patient referral to dietitian [facility] Start: 04-17-2025 Referral to occupati onal therapist [facility] Start: 04-17-2025 Referral to service [facility] Start: 04-17-2025 Vital signs measurements [facility] Start: 04-17-2025 [facility] Start: 04-17-2025 Oxygen therapy [facility] Start: 04-13-2025 Development of care plan [facility] Start: 04-13-2025 End: 04-13-2025 [facility] Start: 04-13-2025 Patient discharge [facility] Start: 04-12-2025 [facility] Start: 04-11-2025 Referral to occupati onal therapist [facility] Start: 04-11-2025 Developing a treatme nt plan [facility] Start: 04-11-2025 [facility] Start: 04-11-2025 Wound care [facility] Start: 04-11-2025 Consultation for treatment [facility] Start: 04-11-2025 Contact precautions [facility] Start: 04-10-2025 Following clinical p leniway protocol [facility] Start: 04-10-2025 Admission procedure [facility] Start: 04-10-2025 Introduction of urin dakota catheter [facility] Start: 04-10-2025 Measuring intake and output [facility] Start: 04-10-2025 End: 04-11-2025 Patient referral to dietitian [facility] Start: 04-10-2025 Referral to occupati onal therapist [facility] Start: 04-10-2025 Referral to service [facility] Start: 04-10-2025 Vital signs measurements [facility] Start: 04-10-2025 Oxygen therapy [facility] Start: 04-10-2025 Patient discharge [facility] Start: 04-10-2025 End: 04-10-2025 Microbial culture, body fluid [facility] Start: 04-10-2025 Anaerobic microbial culture [facility] Start: 04-10-2025 End: 04-10-2025 [facility] Start: 04-09-2025 Referral to service [facility] Start: 04-09-2025 Care planning and pr oblem solving actions [facility] Start: 04-09-2025 Assessment of risk o f venous thromboembolism [facility] Start: 04-09-2025 Catheterization of vein [facility] Start: 04-09-2025 Notification of physician [facility] Start: 04-09-2025 Taking patient vital signs [facility] Start: 04-09-2025 Wound care [facility] Start: 04-09-2025 End: 04-09-2025 [facility] Start: 04-09-2025 Care planning and pr oblem solving actions [facility] Start: 04-09-2025 [facility] Start: 04-08-2025 Catheterization of vein [facility] Start: 04-08-2025 Notification of physician [facility] Start: 04-08-2025 [facility] Start: 04-08-2025 Referral to french drawer [facility] Start: 04-08-2025 End: 04-08-2025 Referral to service [facility] Start: 04-07-2025 Referral to occupati onal therapist [facility] Start: 04-07-2025 Referral to service [facility] Start: 04-07-2025 Provision of activit y privileges [facility] Start: 04-07-2025 Wound care [facility] Start: 04-06-2025 [facility] Start: 04-06-2025 Continuous pulse oximetry [facility] Start: 04-06-2025 Consultation for treatment [facility] Start: 04-06-2025 XR Chest Single view [facility] Start: 04-06-2025 [facility] Start: 04-06-2025 Inhalation therapy procedure [facility] Start: 04-05-2025 Following clinical p athway protocol [facility] Start: 04-05-2025 Assessment of risk o f venous thromboembolism [facility] Start: 04-05-2025 Care regimes management [facility] Start: 04-05-2025 Catheterization of vein [facility] Start: 04-05-2025 Insertion of cathete r into peripheral vein [facility] Start: 04-05-2025 Measuring intake and output [facility] Start: 04-05-2025 Notification of physician [facility] Start: 04-05-2025 Oxygen therapy [facility] Start: 04-05-2025 Providing care accor ding to standard [facility] Start: 04-05-2025 Provision of activit y privileges [facility] Start: 04-05-2025 Referral to occupati onal therapist [facility] Start: 04-05-2025 Referral to service [facility] Start: 04-05-2025 End: 04-05-2025 [facility] Start: 04-05-2025 Referral to law enforcement officer [facility] Start: 04-05-2025 Verification routine [facility] Start: 04-05-2025 Urinalysis complete panel - Urine [facility] Start: 04-05-2025 Admission procedure [facility] Start: 04-05-2025 Hospital admission, emergency, from emergency room, medical nature [facility] Start: 04-05-2025 End: 04-05-2025 [facility] Start: 04-05-2025 Patient referral to dietitian [facility] Start: 03-27-2025 24 Hour ECG [facility] Start: 03-15-2025 [facility] Start: 03-15-2025 Control nasal hemorr min anterior simple [facility] Start: 03-09-2025 Referral to service [facility] Start: 03-09-2025 Patient discharge [facility] Start: 03-08-2025 Application of elast ic bandage [facility] Start: 03-07-2025 Introduction of urin dakota catheter [facility] Start: 03-06-2025 Inhalation therapy procedure [facility] Start: 03-05-2025 [facility] Start: 03-05-2025 Care planning and pr oblem solving actions [facility] Start: 03-05-2025 Chest 1 View (Portable) Chest 1 View (Portable) [facility] Start: 03-05-2025 XR Chest Single view [facility] Start: 03-05-2025 Care planning and pr oblem solving actions [facility] Start: 03-04-2025 Following clinical p athway protocol [facility] Start: 03-04-2025 Assessment of risk o f venous thromboembolism [facility] Start: 03-04-2025 Care regimes management [facility] Start: 03-04-2025 Catheterization of vein [facility] Start: 03-04-2025 Insertion of cathete r into peripheral vein [facility] Start: 03-04-2025 Measuring intake and output [facility] Start: 03-04-2025 Notification of physician [facility] Start: 03-04-2025 Oxygen therapy [facility] Start: 03-04-2025 Providing care accor ding to standard [facility] Start: 03-04-2025 Provision of activit y privileges [facility] Start: 03-04-2025 Referral to french drawer [facility] Start: 03-04-2025 Referral to occupati onal therapist [facility] Start: 03-04-2025 Referral to service [facility] Start: 03-04-2025 End: 03-04-2025 [facility] Start: 03-04-2025 Hospital admission, emergency, from emergency room, medical nature [facility] Start: 03-04-2025 Verification routine [facility] Start: 03-04-2025 Admission procedure [facility] Start: 03-04-2025 Thyroid stimulating hormone measurement [facility] Start: 03-04-2025 [facility] Start: 03-04-2025 Patient referral to dietitian [facility] Start: 04-20-2024 Covid-19 Vaccine ( season) Covid-19 Vaccine ( season) [facility] Start: 04-20-2024 Influenza vaccination Influenza Vacc ine (#1) [facility] Start: 08-20-2023 Advance Directive Discussion Advance Directive Discussion [facility] Start: 06-22-2023 [facility] Start: 06-08-2023 Patient discharge [facility] Start: 06-08-2023 Anes open proc bones lower leg/ankle/foot nos ANESTH LOWER LEG BONE SURG [facility] Start: 06-08-2023 Osteot w/wo lngth shrt/corrj 1st metar INCISION OF METATARSAL [facility] Start: 06-08-2023 Prep site f/s/n/h/f/ g/m/d gt 1st 100 sq cm/1pct WOUND PREP F/N/HF/G [facility] Start: 06-08-2023 Sub grft f/s/n/h/f/g /m/d <100sq cm 1st 25 sq cm SKIN SUB GRAFT FACE/NK/HF/G [facility] Start: 06-08-2023 Fluoroscopic guidance O.R. Fluoro fo r C-Arm [facility] Start: 06-08-2023 Radiography of foot Foot 2 Views [facility] Start: 12-30-2022 [facility] Start: 12-30-2022 End: 12-30-2022 Blood culture [facility] Start: 12-30-2022 End: 12-30-2022 [facility] Start: 10-16-2022 CBC W Auto Different ial panel - Blood [facility] Start: 10-16-2022 Lactate dehydrogenas e measurement [facility] Start: 10-16-2022 End: 10-16-2022 [facility] Start: 07-18-2022 [facility] Work Phone: Start: 05-18-2022 [facility] Work Phone: Start: 05-11-2022 Patient referral [facility] Work Phone: Start: 04-28-2022 CORE NDL BX LNG/MED PERQ CORE NDL BX LNG/MED PERQ [facility] Work Phone: Start: 04-28-2022 Following clinical p athway protocol [facility] Work Phone: Start: 04-28-2022 Catheterization of vein [facility] Work Phone: Start: 04-28-2022 Oxygen therapy [facility] Work Phone: Start: 04-28-2022 Patient discharge [facility] Work Phone: Start: 04-28-2022 Vital signs measurements [facility] Work Phone: Start: 04-20-2022 Influenza vaccination INFLUENZA (#1) [facility] Start: 04-05-2022 End: 04-19-2022 Influenza virus A and B RNA and SARS-CoV-2 (COVID-19) N gene panel - Respiratory specimen by BRYAN with probe detection [facility] Work Phone: Comment on above: Expected: 04/05/2022 , Expires: 04/19/2022 Start: 08-20-2021 ADVANCE DIRECTIVE DISCUSSION ADVANCE DIRECTIVE DISCUSSION [facility] Start: 08-20-2021 DEPRESSION ASSESSMENT DEPRESSION ASS ESSMENT [facility] Start: 05-04-2021 COVID-19 VACCINE (3 - Booster for Moderna series) COVID-19 VACCINE (3 - Booster for Moderna series) [facility] Start: 01-27-2021 COVID-19 VACCINE (3 - Booster for Moderna series) COVID-19 VACCINE (3 - Booster for Moderna series) [facility] Start: 01-15-2020 RSV Vaccine (1 - 1-d ose 75+ series) RSV Vaccine (1 - 1-dose 75+ series) [facility] Start: 12-01-2018 DIABETES SCREEN DIABETES SCREEN [facility] Start: 12-01-2018 Diabetes Screening Diabetes Screenin g [facility] Start: 2010 Pneumococcal Vaccine : 65+ (1 of 1 - PCV) Pneumococcal Vaccine: 65+ (1 of 1 - PCV) [facility] Start: 2010 PNEUMOCOCCAL: 65+ (1 - PCV) PNEUMOCOCCAL: 65+ (1 - PCV) [facility] Start: 1995 SHINGRIX VACCINE (1 of 2) HEIN GRIX VACCINE (1 of 2) [facility] Start: 01-15-1964 Urine microalbumin profile [facility] Start: 1963 Anxiety Screening Anxiety Screening [facility] Start: 1963 Depression Screening Depression Scre ening [facility] Start: 1963 HEPATITIS C SCREENING HEPATITIS C [facility] Start: 1957 Adult depression scr eening assessment [facility] 24 Hour ECG [facility] Alanine aminotransfe rase [Enzymatic activity/volume] in Serum or Plasma [facility] Albumin [Mass/volume ] in Serum or Plasma [facility] Alkaline phosphatase [Enzymatic activity/volume] in Serum or Plasma [facility] Anaerobic Culture Anaerobic Culture [facility] Work Phone: Anion gap in Serum o r Plasma [facility] Anion gap in Serum o r Plasma [facility] Anion gap in Serum o r Plasma [facility] Anion gap in Serum o r Plasma [facility] Anion gap measurement [facility] Aspartate aminotrans ferase [Enzymatic activity/volume] in Serum or Plasma [facility] Bacteria identified in Blood by Culture Blood Culture [facility] Bacteria identified in Body fluid by Culture [facility] Bacteria identified in Unspecified specimen by Anaerobe culture [facility] Work Phone: Bacteria identified in Unspecified specimen by Anaerobe culture [facility] Bacteria identified in Urine by Culture URINE CULTURE Microbiology Routine Burning with urination 04/05/2022 1:58 PM EDT [facility] Work Phone: Bacteria identified in Urine by Culture Urine Culture [facility] Bilirubin, total measurement [facility] BUN/Creatinine ratio [facility] BUN/Creatinine ratio [facility] BUN/Creatinine ratio [facility] BUN/Creatinine ratio [facility] BUN/Creatinine ratio [facility] Calcium [Mass/volume ] in Serum or Plasma [facility] Calcium [Mass/volume ] in Serum or Plasma [facility] Calcium [Mass/volume ] in Serum or Plasma [facility] Calcium [Mass/volume ] in Serum or Plasma [facility] Calcium [Mass/volume ] in Serum or Plasma [facility] Carbon dioxide, tota l [Moles/volume] in Central venous blood [facility] Carbon dioxide, tota l [Moles/volume] in Central venous blood [facility] Carbon dioxide, tota l [Moles/volume] in Central venous blood [facility] Carbon dioxide, tota l [Moles/volume] in Central venous blood [facility] Carbon dioxide, tota l [Moles/volume] in Serum or Plasma [facility] CBC W Auto Different ial panel - Blood [facility] Work Phone: CBC W Auto Different ial panel - Blood [facility] CBC W Auto Different ial panel - Blood [facility] Chloride [Moles/volu me] in Serum or Plasma [facility] Creatinine [Mass/vol ume] in Serum or Plasma [facility] Creatinine [Mass/vol ume] in Serum or Plasma [facility] Creatinine [Mass/vol ume] in Serum or Plasma [facility] Creatinine [Mass/vol ume] in Serum or Plasma [facility] Creatinine [Moles/vo lume] in Serum or Plasma [facility] CT Chest and Abdomen W contrast IV [facility] CT Chest W contrast IV [facility] Work Phone: CT Chest W contrast IV [facility] Cytology report of B horace fluid Cyto stain [facility] Erythrocyte mean corpuscular volume determination [facility] Erythrocyte mean corpuscular volume determination [facility] Erythrocyte mean corpuscular volume determination [facility] Erythrocyte mean corpuscular volume determination [facility] Glucose [Mass/volume ] in Serum or Plasma [facility] Glucose [Mass/volume ] in Serum or Plasma [facility] Glucose [Mass/volume ] in Serum or Plasma [facility] Glucose [Mass/volume ] in Serum or Plasma [facility] Glucose [Mass/volume ] in Serum or Plasma [facility] Hematocrit [Volume Fraction] of Blood [facility] Hematocrit [Volume Fraction] of Blood [facility] Hematocrit [Volume Fraction] of Blood [facility] Hematocrit [Volume Fraction] of Blood [facility] Hematocrit [Volume Fraction] of Blood [facility] Hemoglobin [Mass/vol ume] in Blood [facility] Hemoglobin [Mass/vol ume] in Blood [facility] Hemoglobin [Mass/vol ume] in Blood [facility] Hemoglobin [Mass/vol ume] in Blood [facility] Hemoglobin [Mass/vol ume] in Blood [facility] Hemoglobin A1c/Hemoglobin.total in Blood [facility] Lactate dehydrogenas e measurement [facility] Lactate dehydrogenas e measurement [facility] LDH [facility] Work Phone: Leukocytes [#/volume ] in Blood [facility] Leukocytes [#/volume ] in Blood [facility] Leukocytes [#/volume ] in Blood [facility] Leukocytes [#/volume ] in Blood [facility] Leukocytes [#/volume ] in Blood [facility] Magnesium measurement [facility] Magnesium measurement [facility] Mean corpuscular hemoglobin concentration determination [facility] Mean corpuscular hemoglobin concentration determination [facility] Mean corpuscular hemoglobin concentration determination [facility] Mean corpuscular hemoglobin concentration determination [facility] Mean corpuscular hemoglobin concentration determination [facility] Mean corpuscular hemoglobin determination [facility] Mean corpuscular hemoglobin determination [facility] Mean corpuscular hemoglobin determination [facility] Mean corpuscular hemoglobin determination [facility] Mean corpuscular hemoglobin determination [facility] Measurement of renal function [facility] Measurement of renal function [facility] Measurement of renal function [facility] Measurement of renal function [facility] Measurement of renal function [facility] Microbial culture, routine Wound Culture [facility] Work Phone: Microscopic observat ion [Identifier] in Unspecified specimen by Gram stain [facility] MR Brain WO and W co ntrast IV [facility] Work Phone: Natriuretic peptide. B prohormone N-Terminal [Mass/volume] in Serum or Plasma [facility] Natriuretic peptide. B prohormone N-Terminal [Mass/volume] in Serum or Plasma [facility] Natriuretic peptide. B prohormone N-Terminal [Mass/volume] in Serum or Plasma [facility] Neutrophil count [facility] Neutrophil count [facility] Neutrophil count [facility] Neutrophil count [facility] Neutrophil count [facility] Neutrophil percent differential count [facility] Neutrophil percent differential count [facility] Neutrophil percent differential count [facility] Neutrophil percent differential count [facility] Neutrophil percent differential count [facility] Patient Education [facility] Work Phone: Patient referral [facility] Work Phone: Platelets [#/volume] in Blood [facility] Platelets [#/volume] in Blood [facility] Platelets [#/volume] in Blood [facility] Platelets [#/volume] in Blood [facility] Platelets [#/volume] in Blood [facility] Positron emission tomography with computed tomography [facility] Work Phone: Potassium [Moles/vol ume] in Serum or Plasma [facility] Potassium measurement [facility] Potassium measurement [facility] Potassium measurement [facility] Potassium measurement [facility] Procedure [facility] PT Unspecified body region W [facility] Radiation oncology A ND/OR radiotherapy [facility] Work Phone: Radiation oncology A ND/OR radiotherapy [facility] Red blood cell count [facility] Red blood cell count [facility] Red blood cell count [facility] Red blood cell count [facility] Red blood cell count [facility] Red cell distributio n width determination [facility] Red cell distributio n width determination [facility] Red cell distributio n width determination [facility] Red cell distributio n width determination [facility] Red cell distributio n width determination [facility] Serum chloride measurement W [facility] Serum chloride measurement W [facility] Serum chloride measurement [facility] Serum chloride measurement [facility] Sodium [Moles/volume ] in Serum or Plasma [facility] Sodium measurement [facility] Sodium measurement [facility] Sodium measurement [facility] Sodium measurement [facility] Total protein measurement [facility] Troponin T.cardiac [Mass/volume] in Serum or Plasma by High sensitivity method [facility] Troponin T.cardiac [Mass/volume] in Serum or Plasma by High sensitivity method [facility] Troponin T.cardiac [Mass/volume] in Serum or Plasma by High sensitivity method [facility] Troponin T.cardiac [Mass/volume] in Serum or Plasma by High sensitivity method [facility] Urea nitrogen [Mass/volume] in Serum or Plasma [facility] Urea nitrogen [Mass/volume] in Serum or Plasma [facility] Urea nitrogen [Mass/volume] in Serum or Plasma [facility] Urea nitrogen [Mass/volume] in Serum or Plasma [facility] Urea nitrogen [Mass/volume] in Serum or Plasma [facility] Immunizations Immunization Date Immunization Notes Care Provider Fa [facility] 06-23-2024 influenza virus vaccine, unspecified formulation DR DAVID STERLING MD [facility] 02-26-2024 pneumococcal 20-shannon nt conjugate vaccine DR DAVID STERLING MD [facility] 06-01-2023 influenza virus vaccine, unspecified formulation DR DAVID STERLING MD [facility] 04-27-2022 influenza virus vaccine, unspecified formulation DR DAVID STERLING MD [facility] 12-02-2020 SARS-CoV-2 (COVID-19 ) mRNA-[address] DAVID STERLING MD [facility] Comment on above: Result Comment: 2024: [id number] 11-04-2020 SARS-CoV-2 (COVID-19 ) mRNA-[address] DAVID STERLING MD [facility] Comment on above: Result Comment: 2024: [id number] 08-03-2014 influenza virus vaccine, unspecified formulation Xr [place] Work Phone: [facility] 06-20-2013 Influenza virus vaccine W [facility] 06-20-2013 Pneumococcal Vaccine [facility] Work Phone: 06-20-2013 pneumococcal vaccine , unspecified formulation Dr. Tonio Fajardo Work Phone: [facility] Payers Date Payer Category Payer Self-pay [id number] 2025 Private Health Insurance [id number] 2022 Self-pay [id number] 2016 Self-pay [id number] 2009 Medicare [id number] 2009 Medicare [id number] 2009 [employer] ( and others) [id number] 2009 Unknown FOR LIFE [id number] 2009-[facility] [phone] [address] [place] [address] Indemnity [id number] .7.3.289025.[facility] 1945 Unknown [id number] 2.16.840.1.971592.3.579.2 .627 Unknown [id number] 2.16.840.1.584650.3.579.2 .462 Unknown [id number] 2.16.840.1.999900.3.579.2 .462 Unknown [id number] 2.16.840.1.937431.3.579.2 .462 Unknown [id number] 2.16.840.1.899092.3.579.2 .462 Unknown [id number] 2.16.840.1.537592.3.579.2 .462 Unknown [id number] 2.16.840.1.233900.3.579.2 .462 Unknown [id number] 2.16.840.1.939554.3.579.2 .462 Unknown [id number] 2.16.840.1.965105.3.579.2 .462 Unknown [id number] 2.16.840.1.501873.3.579.2 .462 Unknown [id number] 2.16.840.1.596933.3.579.2 .462 Unknown [id number] 2.16.840.1.010175.3.579.2 .462 Unknown [id number] 2.16.840.1.603604.3.579.2 .462 Unknown [id number] 2.16.840.1.970538.3.579.2 .462 Unknown [id number] 2.16.840.1.554438.3.579.2 .462 Unknown [id number] 2.16.840.1.401333.3.579.2 .462 Unknown [id number] 2.16.840.1.502199.3.579.2 .462 Unknown [id number] 2.16.840.1.100243.3.579.2 .462 Unknown [id number] 2.16840.1.711811.3.579.2 .462 Unknown [id number] 2.16.840.1.491629.3.579.2 .462 Unknown [id number] 2.16.840.1.486905.3.579.2 .462 Unknown [id number] 2.840.1.801866.3.579.2 .462 Unknown [id number] 2.840.1.629410.3.579.2 .462 Unknown [id number] 2.840.1.389163.3.579.2 .462 Unknown [id number] 2.840.1.448535.3.579.2 .462 Unknown [id number] 2.840.1.671838.3.579.2 .462 Unknown [id number] 2.840.1.300649.3.579.2 .462 Unknown [id number] 2.840.1.774670.3.579.2 .462 Unknown [id number] 2.840.1.113673.3.579.2 .462 Unknown [id number] 2.840.1.592918.3.579.2 .462 Unknown [id number] .840.1.725934.3.579.2 .462 Unknown [id number] 2.840.1.424810.3.579.2 .462 Unknown [id number] 2.840.1.849069.3.579.2 .462 Unknown [id number] 2.840.1.510986.3.579.2 .462 Unknown [id number] 2.840.1.343287.3.579.2 .462 Unknown [id number] 2.840.1.864469.3.579.2 .462 Unknown [id number] 2.16.840.1.689180.3.579.2 .462 Unknown [id number] 2.16.840.1.101492.3.579.2 .462 Unknown [id number] 2.16.840.1.168564.3.579.2 .462 Unknown [id number] 2.16.840.1.384111.3.579.2 .462 Unknown [id number] 2.16.840.1.645105.3.579.2 .462 Unknown [id number] 2.16.840.1.211463.3.579.2 .462 Unknown [id number] 2.16.840.1.925074.3.579.2 .462 Unknown [id number] 2.840.1.216156.3.579.2 .462 Unknown [id number] 2.840.1.280035.3.579.2 .462 Unknown [id number] 2.840.1.091275.3.579.2 .462 Unknown [id number] 2.840.1.995901.3.579.2 .462 Unknown [id number] 2.16840.1.596844.3.579.2 .462 Unknown [id number] 2.840.1.853023.3.579.2 .462 Unknown [id number] 2.16.840.1.508452.3.579.2 .462 Unknown [id number] 2.16.840.1.937285.3.579.2 .462 Unknown [id number] 2.16.840.1.603699.3.579.2 .462 Unknown [id number] 2.16.840.1.284207.3.579.2 .462 Unknown [id number] 2.16.840.1.111522.3.579.2 .462 Unknown [id number] 2.16.840.1.821137.3.579.2 .462 Unknown [id number] 2.16.840.1.391336.3.579.2 .462 Social History Date Type Detail Facility Start: 01-06-2021 End: 10-31-2023 Tobacco smoking status MNIS Unknown if ever smoked [facility] Start: 08-27-2013 None [facility] Start: 03-18-2014 Spouse/ Signif icant Other [facility] Start: 06-20-2014 Non-smoker [facility] Start: 1945 Sex Assigned At Male W [facility] Start: 04-05-2022 End: 05-04-2025 Tobacco smoking status NHIS Ex-smoker [facility] Work Phone: History of tobacco use Current smoker [facility] Work Phone: History of tobacco use Cigarette Smoker [facility] Work Phone: Start: 04-05-2022 Tobacco use and exposure Former smokeless tobacco user [facility] Work Phone: Start: 1945 Sex Assigned At Not on file [facility] Start: 03-26-2022 End: 04-05-2022 Exposure to SARS-CoV-2 (event) Not sure [facility] Work Phone: Start: 04-05-2022 History of Social function [facility] Start: 04-05-2022 Tobacco use panel [facility] Start: 10-30-2024 End: 04-13-2025 Sex Male (finding) [facility] Tobacco smoking status [facility] Procedure Code Equipment Code Equipment [...] FDA Start: 06-08-2023 Bunionectomy FDA Start: 06-08-2023 [id number]) [id number] [id number] FDA Start: 04-09-2025 ([id number]) [id number] [id number] FDA Start: 04-09-2025 ([id number]) [id number] [id number] FDA Start: 04-09-2025 Goals Date Patient Goal Desired Activity /State Functional Status Date Assessment Result Facility 05-05-2025 Functional status Chair [facility] Work Phone: 04-28-2025 Functional status Ambulates;Bath room Privilege [facility] Work Phone: 04-27-2025 Functional status Ambulates;Bath room Privilege [facility] Work Phone: 04-23-2025 Functional status Ambulates;Chair [facility] Work Phone: 04-19-2025 Functional status Bedrest [facility] Work Phone: 04-12-2025 Functional status Chair [facility] Work Phone: 04-10-2025 Functional status Stand and pivot [facility] Work Phone: 03-09-2025 Functional status Chair [facility] Work Phone: Mental Status Date Assessment Result Facility 05-04-2025 Cognitive function Drowsy [facility] Work Phone: 04-28-2025 Cognitive function Voice/Name [facility] Work Phone: 04-27-2025 Cognitive function Voice/Name [facility] Work Phone: 04-23-2025 Cognitive function Voice/Name [facility] Work Phone: 04-19-2025 Cognitive function Awake;Alert;A ppropriate;Sharano [facility] Work Phone: 04-18-2025 Cognitive function Voice/Name [facility] Work Phone: 04-17-2025 Cognitive function Appropriate;Cooperativ e [facility] Work Phone: 04-12-2025 Cognitive function Voice/Name [facility] Work Phone: 04-10-2025 Cognitive function Voice/Name [facility] Work Phone: 04-05-2025 Cognitive function Awake;Alert;A ppropriate;Follo [facility] Work Phone: 03-09-2025 Cognitive function Voice/Name [facility] Work Phone: 06-08-2023 Cognitive function Voice/Name [facility] Work Phone: 12-30-2022 Cognitive function Level Of Cons ciousness Awake;Alert;Appropriate;Follo ws Commands [facility] Work Phone: 04-28-2022 Cognitive function Voice/Name [facility] Work Phone: 04-14-2022 Cognitive function Level Of Cons ciousness Awake;Appropriate;Follows Commands;Drowsy [facility] Work Phone: Clinical Notes 04-05-2022 to 05-04-2025 Note Date & Type Note Facility 05-04-2025 Consult note Note Date/Time May 04, 2025 5:14pm [facility] Medical Records Department [address] [place] [address] Anesthesia Postop Eval II 05/04/25 1714 MR#: [id number] Acct: [id number] Name: PEDRO HILLMAN Rep #:[id number] : 1945 80 From: Joby Desir MD PCP: Dr. Tonio Fajardo, DO Status:REG SDC Y Race: C Location: [place] [address] Anesthesia Postop Eval I Sum Postop Eval Completion status Anesthesia document: Postop Eval 1 completed: Yes Anesthesia Postop Eval I Summary Anesthesia Postop Eval I Summary: Anesthesia Postop Eval I: Assessment Summary Airway patent Yes 05/04/25 16:35 INTERIOR DESIGN INSTRUCTOR.TDOB Spontaneous unlabored Yes 05/04/25 16:35 INTERIOR DESIGN INSTRUCTOR.TDOB respirations Mental status Asleep 05/04/25 16:35 INTERIOR DESIGN INSTRUCTOR.TDOB nausea No 05/04/25 16:35 INTERIOR DESIGN INSTRUCTOR.TDOB Vomiting No 05/04/25 16:35 INTERIOR DESIGN INSTRUCTOR.TDOB Anesthesia Postop Eval I: Fluid Summary Crystalloid volume administer 100 05/04/25 16:35 INTERIOR DESIGN INSTRUCTOR.TDOB (ml) Colloids volume administered ( ml) Blood Product volume administered (ml) Total IV fluid infused 100 05/04/25 16:35 INTERIOR DESIGN INSTRUCTOR.TDOB Anesthesia Postop Eval I: Summary Notes Anesthesia Complication No 05/04/25 16:35 INTERIOR DESIGN INSTRUCTOR.TDOB Anesthesia Complication Comment: Post-operative progress note Anesthesia: Postop Eval II Evaluation Mental status: Awake Pain Level: 0 nausea: No Vomiting: No 05/04/25 1714 <Electronically signed by Joby Desir MD > Date _ Joby Desir MD Cosigner Signature: Date CC: ~ Signed [facility] Work Phone: 1(801) 281-267909-15-2025 Consult note Author Peace Hicks [facility] Note Date/Time May 04, 2025 4:35pm [facility] Medical Records Department [address] [place] [address] Anesthesia Postop Eval I 05/04/251633 MR#: [id number] Acct: [id number] Name: PEDRO HILLMAN Rep #:[id number] : 1945 80 From: Peace Ovalle PCP: Dr. Tonio Fajardo, DO Status:REG SDC Y Race: C Location: [place] [address] Anesthesia: Postop Eval I Current Vital Signs Temperature: 97.5 F Pulse Rate: 97 Blood Pressure: 108/36 Respiratory Rate: 16 Pulse Ox: 90 Oxygen Delivery Method: Nasal Cannula Oxygen Flow Rate (L/min): 4 Assessment Airway patent: Yes Spontaneous unlabored respirations: Yes Mental status: Asleep nausea: No Vomiting: No Anesthesia Complication: No Fluid Hydration Crystalloid volume administer (ml): 100 Total IV fluid infused: 100 Progress Note Anesthesia document: Postop Eval 1 completed: Yes 05/04/25 1635 <Electronically signed by Peace Barreto RNA> Date _ Peace Hicks INTERIOR DESIGN INSTRUCTOR Cosigner Signature: Date CC: ~ Signed [facility] Work Phone: 1(641) 625-897709-15-2025 History and physical note Author Jakob Goddard [facility] Note Date/Time May 04, 2025 4:09pm [facility] Medical Records Department [address] [place] [address] History & Physical Exam 05/04/25 1606 MR#: [id number] Acct: [id number] Name: PEDRO HILLMAN Rep #:[id number] : 1945 80 From: Jakob Goddard DO PCP: Dr. Tonio Fajardo, Status:[facility] Location: [place] [address] HPI - General General Date of Admission: 05/04/25 Date of Service: 05/04/25 Chief Complaint: Anemia HPI Narrative PEDRO HILLMAN, is a 80-year-old white male was seen in the emergency room at [facility] after sustaining a syncopal episode and TCU where he was undergoing rehab services. Workup in the emergency room included labs whichshowed a slightly low hemoglobin at 9.6, chemistry profile was remarkable for creatinine of 1.7 and a BUN of 40, patient's troponin was elevated at 99, chest x-ray was unremarkable. It was noted that the patient's blood pressure dropped to 85/68 sitting in the emergency room, the patient was symptomatic during this. Patient was admitted to PCU, his blood pressures were monitored, he was given IV fluids without resolution of his orthostatic hypotension. Patient was seen by PT and OT, midodrine was added to the patient's medical regiment but the patient still remained orthostatically hypotensive. At that point, Florinef was added to the patient's medical regimen with some improvement in his blood pressure. He was sent over to the transitional care unit for further rehab and strengthening prior to being DC to home. While in rehab his hemoglobin continued to drop all way down to 6.7. He was transfused 3 units of packed red blood cells. I was consulted for his anemia. [facility]LY [facility], [facility] Medical History Orthostatic hypotension Syncope Presence of cardiac pacemaker Peripheral arterial disease Other persistent atrial fibrillation New onset atrial flutter COVID Wears hearing aid in both ears Former smoker Coronary artery disease Peripheral vascular occlusive disease BPH (benign prostatic hyperplasia) Chronic kidney disease, stage 3 Atherosclerosis of coronary artery of [place] heart without angina pectoris Hyperlipidemia Lower extremity edema Venous insufficiency Malnutrition Delayed wound healing Osteomyelitis of ankle, left, acute Ulcer of left lower extremity with fat layer exposed Type 2 diabetes mellitus with diabetic polyneuropathy Anemia GERD (gastroesophageal reflux disease) Hypertension Home Medications ?Medication ?Instructions ?Recorded ?Last Taken ?Type multivitamin (Daily Multi-Vitamin 1 tab PO DAILY suppl ement 06/28/20 05/03/25 History tablet) pravastatin 20 mg tablet 20 mg PO DAILY hyperlipidemi a 01/17/22 05/03/25 History docusate sodium 100 mg capsule 100 mg PO DAILY PRN sto ol softner 07/25/23 Unknown History (Colace) apixaban 5 mg tablet (Eliquis) 2.5 mg (1/2 x 5 mg) PO BID blood 03/09/25 05/01/25 Rx Held on 05/04/25. thinner 30 days #30 tabs Instructions: FOR PROCEDURE, LOW HGB tamsulosin 0.4 mg capsule 0.4 mg PO DAILY@1730 prostat e 30 03/09/25 05/03/25 Rx days #30 caps metoprolol succinate 25 mg 12.5 mg (1/2 x 25 mg) PO BI D blood 04/03/25 05/04/25 Rx tablet,extended release 24 hr thinner #90 tabs clopidogrel 75 mg tablet 75 mg PO DAILY anti platelet 04/05/25 05/03/25 History OXYGEN - Supplemental ([facility] 04/09/25 Unknown History INFORMATIONAL USE ONLY) ipratropium 0.5 mg-albuterol 3 mg 3 ml inhalation Q8H SOB 04/17/25 Unknown History (2.5 mg base)/3 mL nebulization soln acetaminophen 325 mg tablet 650 mg (2 x 325 mg) PO Q6H PRN PRN 04/23/25 05/03/25 Rx Pain 1-10 Or Fever>100.7 #0 tabs albuterol sulfate 2.5 mg/3 mL 2.5 mg (3 mL) inhalation Q4H PRN 04/23/25 05/03/25 Rx (0.083 %) solution for nebulization shortness of breat h or wheezing #0 mL fludrocortisone 0.1 mg tablet 0.1 mg PO BID hypotensio n #0 tabs 04/23/25 05/03/25 Rx insulin lispro 100 unit/mL See Protocol subcut ACHS di abetes 04/23/25 Unknown Rx subcutaneous pen (Humalog KwikPen #0 mL (U-100) Insulin) midodrine 5 mg tablet 10 mg (2 x 5 mg) PO TIDCM Unknown Rx Held on 05/04/25. hypotension #0 tabs Instructions: NOT ORDERED IN PATIENT nutrition tx glu 120 ml PO TIDCM supplement # 0 mL 04/23/25 05/03/25 Rx intol,lac-free,soy-fiber 0.06 gram-1.2 kcal/mL liquid (Glucerna 1.2 Gonzalo) insulin glargine-yfgn 100 unit/mL 15 unit subcut QHS d iabetes 05/04/25 05/03/25 History (3 mL) subcutaneous pen Allergy/AdvReac Type Severity Reaction Status Date / Time ibuprofen Allergy Severe Facial Verified 05/01/25 09:47 swelling (angioedema) Family History Brother Diabetes Father [...] patient quit smokin years ROS Constitutional Constitutional: Denies fatigue, fever(s), poor appetite, weight gain or weight loss Gastrointestinal Gastrointestinal: Denies belching, bloating, change in bowel habits, change in stool character, chewing difficulty, coffee ground emesis, constipation, cramping, diarrhea, dyspepsia, dysphagia, early satiety, excessive flatus, fecalincontinence, heartburn, hematemesis, hematochezia, hemorrhoids, loose stools, melena, nausea, odynophagia, rectal bleeding, tenesmus, vomiting or weight changes Vital Signs Vital Signs Vital Signs: 05/04/25 14:51 Temperature 97.8 F Temperature Source Temporal Pulse Rate 105 H Respiratory Rate 18 Blood Pressure 138/65 H Blood Pressure Mean 89 Blood Pressure Source Monitor Blood Pressure Position Semi-Fowlers Blood Pressure Location Left Arm Pulse Ox 99 Oxygen Delivery Method Nasal Cannula Oxygen Flow Rate (L/min) 3 Weight Weight: 159 lb 7.718 oz Body Mass Index (BMI) 25.7 Physical Exam Const alert, oriented x3, no apparent distress and healthy appearing General Appearance: cooperative GI normal to inspection, nondistended, normoactive bowel sounds, soft to palpation,non-tender and non-distended Percussion: normal to percussion Rectal Exam: deferred Assessment & Plan Assessment/Plan (1) Atrial fibrillation: PLAN: 80-year-old gentleman with history of peripheral artery disease, coronary artery disease on Plavix, CHF, recurrent right-sided pleural effusion, CKD stageIII, history of lung cancer, atrial fibrillation on anticoagulation currently with significant iron deficiency anemia. He will need to undergo an upper endoscopy possibly colonoscopy and plus or minus capsule endoscopy. He was explained alternatives, risk and benefits include not withstanding bleeding, infection, sepsis, perforation, need for discharge and . He will have an ASA of 3. 05/04/25 1609 <Electronically signed by Jakob Goddard DO> Cosigner Signature (if applicable): CC: Dr. Tonio Fajardo, ; Jakob Goddard, ~ Signed [facility] Work Phone: 1(249) 260-204409-15-2025 Consult note Author Joby Desir [facility] Note Date/Time May 04, 2025 2:46pm [facility] Medical Records Department [address] [address] Pre-Anesthesia Evaluation 05/04/25 1446 MR#: [id number] Acct: [id number] Name: PEDRO HILLMAN Rep #:[id number] : 1945 80 From: Joby Desir MD PCP: Dr. Tonio Fajardo, DO Status:REG SDC Y Race: C Location: [place] [address] ASA Classification* ASA Classification ASA Classification: 3 Assessment & Plan Anesthesia* Anesthesia Assessment Anesthesia Assessment: Discussed sedation and/or anesthesia options, risks, benefits, and alternatives with patient/parents/legal guardian/POA. Questions invited. The patient/parents/legal guardian/POA seems to understand and agrees to proceedwith anesthesia plan. Reviewed the physical assessment, medical history, allergy history and patient home medications list prior to surgery/procedure/anesthetic and documented any changes. Performed airway and anesthesia risk assessments. Anesthesia Type Anesthesia Type: MAC (Pacemaker) Anesthesia Focused Assessment* Airway Assessment Mouth opens: >3 cm Mallampati Score: II Labs Anesthesia Preop lab: CBC WBC 3.9 K/mm3 (4.4-11.0) L 05/01/25 05:51 05/01/25 RBC 2.55 M/mm3 (4.6-6.2) L 05/01/25 05:51 05/01/25 Hgb 9.7 g/dL (13.0-16.5) L 05/04/25 08:02 05/04/25 Hct 31.9 % (40-54) L 05/04/25 08:02 05/04/25 Plt Count 149 K/mm3 (150-450) L 05/01/25 05:51 05/01/25 CHEMISTRY Potassium 3.8 mmol/L (3.3-5.1) 05/01/25 05:51 05/01/25 Sodium 142 mmol/L (133-145) 05/01/25 05:51 05/01/25 Magnesium 2.1 mg/dL (1.5-2.2) 04/19/25 11:00 04/19/25 Phosphorus 3.9 mg/dL (2.7-4.5) 04/19/25 11:00 04/19/25 BUN 26 mg/dL (4-19) H 05/01/25 05:51 05/01/25 Creatinine 1.28 mg/dL (0.70-1.20) H 05/01/25 05:51 Glucose 100 mg/dL (70-99) H 05/01/25 05:51 05/01/25 POC Glucose 81 mg/dL (74-106) 05/04/25 05:41 05/04/25 TSH 3.830 uIU/mL (0.300-4.200) 04/05/25 19:10 03/20 03/13 COAG PT 16.7 SECONDS (11.7-14.9) H 04/10/25 10:30 03/21 10/14 Pre-Assessment Diagnosis/Proposed Procedure Planned Operative Procedure(s): EGD WITH POSSIBLE BIOPSY Anesthesia History 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 When Was Last Pacemaker Check QUESTION #4 FULL TEXT: You/Your Family Experience fever (hyperthermia) with Anesthesia Last Oral Intake Last Oral intake: Last Oral Intake NPO since Meds taken in AM with sips of water? Meds patient instructed to take am of surgery PONV PONV - farm machine tender: PONV - farm machine tender Female No 05/04/25 13:30 HX of Motion Sickness No 05/04/25 13:30 HX of N/V After Surgery Yes 05/04/25 13:30 Non-Smoker No 05/04/25 13:30 Duration of Surgery greater No 05/04/25 13:30 than 60 minutes Number of Risk Factors 1 05/04/25 13:30 PONV Score Low Risk 05/04/25 13:30 Height & Weight Height & Weight: Anesthesia: Height & Weight Height 5 ft 6 in 05/01/25 09:48 Respiratory Assessment Respiratory Assessment - farm machine tender: Respiratory Tract Infection Hx - farm machine tender Hx Respiratory Tract Infection No 05/04/25 13:30 STOP Sleep Apnea STOP Sleep Apnea - farm machine tender: STOP Sleep Apnea - farm machine tender Hx Hypertension No 05/04/25 13:30 Hx Sleep Apnea No 05/04/25 13:30 CPAP No 05/04/25 13:30 BIPAP No 05/04/25 13:30 Do you snore loudly (louder Yes 05/04/25 13:30 than talking or can be heard Do you often feel tired/ Yes 05/04/25 13:30 fatigued/ sleepy during daytime? Has anyone observed you stop No 05/04/25 13:30 breathing during sleep? STOP Results Positive 05/04/25 13:30 QUESTION #5 FULL TEXT : Do you snore loudly (louder than talking or can be heard through closed doors)? Tobacco Use History Tobacco Use History - farm machine tender: Tobacco Use History - farm machine tender Tobacco Use Smoking Status Former smoker 05/04/25 13:30 Hx Tobacco Use Yes: stopped in aug 2012 05/04/25 13:30 Years Smoking Packs Smoked per Day Smoking Cessation Date was Yes - quit smoking within 15 05/04/25 13:30 within the last 15 years years Hx Smoking Cessation Date Hx Smoking Cessation No 05/04/25 13:30 Counseling Hematologic Medial History Hematologic Hx - farm machine tender: Hematologic Medical Hx - ostomy rn Hx of Blood Transfusion No 05/04/25 13:30 Hx of Transfusion in last 3 No 05/04/25 13:30 Months Date of Last Transfusion (if within last 3 months) Ever experience any problems No 05/04/25 13:30 with transfusion(s)? Specify any problems Hx of Preganancy in last 3 N/A 05/04/25 13:30 Months Nurse Filling Out Transfusion RENA 05/04/25 13:30 & Questions: Date: 05/04/25 05/04/25 13:30 Time: 13:33 05/04/25 13:30 Patient unable to answer at this time (ie. confused, unrespo /Reproduction History /Reproductive History - farm machine tender: /Reproductive Hx- farm machine tender Hx Now Gestational Age (in weeks): EDC: Hx Hx Para Hx Section SAB Active Medications Active Medications: Current Medications Generic Name Dose Route Start Last Admin Trade Name Freq PRN Reason Stop Dose Admin Lactated Ringer's 1,000 mls @ 15 mls/hr 05/04/25 13:30 IV .Q48H FROY PFSH Medical History Orthostatic hypotension Syncope Presence of cardiac pacemaker Peripheral arterial disease Other persistent atrial fibrillation New onset atrial flutter COVID Wears hearing aid in both ears Former smoker Coronary artery disease Peripheral vascular occlusive disease BPH (benign prostatic hyperplasia) Chronic kidney disease, stage 3 Atherosclerosis of coronary artery of ewiiaapaayp heart without angina pectoris Hyperlipidemia Lower extremity edema Venous insufficiency Malnutrition Delayed wound healing Osteomyelitis of ankle, left, acute Ulcer of left lower extremity with fat layer exposed Type 2 diabetes mellitus with diabetic polyneuropathy Anemia GERD (gastroesophageal reflux disease) Hypertension Home Medications ?Medication ?Instructions ?Recorded ?Last Taken ?Type multivitamin (Daily Multi-Vitamin 1 tab PO DAILY suppl ement 06/28/20 05/03/25 History tablet) pravastatin 20 mg tablet 20 mg PO DAILY hyperlipidemi a 01/17/22 05/03/25 History docusate sodium 100 mg capsule 100 mg PO DAILY PRN sto ol softner 07/25/23 Unknown History (Colace) apixaban 5 mg tablet (Eliquis) 2.5 mg (1/2 x 5 mg) PO BID blood 03/09/25 05/01/25 Rx Held on 05/04/25. thinner 30 days #30 tabs Instructions: FOR PROCEDURE, LOW HGB tamsulosin 0.4 mg capsule 0.4 mg PO DAILY@1730 prostat e 30 03/09/25 05/03/25 Rx days #30 caps metoprolol succinate 25 mg 12.5 mg (1/2 x 25 mg) PO BI D blood 04/03/25 05/04/25 Rx tablet,extended release 24 hr thinner #90 tabs clopidogrel 75 mg tablet 75 mg PO DAILY anti platelet 04/05/25 05/03/25 History OXYGEN - Supplemental ([facility] 04/09/25 Unknown History INFORMATIONAL USE ONLY) ipratropium 0.5 mg-albuterol 3 mg 3 ml inhalation Q8H SOB 04/17/25 Unknown History (2.5 mg base)/3 mL nebulization soln acetaminophen 325 mg tablet 650 mg (2 x 325 mg) PO Q6H PRN PRN 04/23/25 05/03/25 Rx Pain 1-10 Or Fever>100.7 #0 tabs albuterol sulfate 2.5 mg/3 mL 2.5 mg (3 mL) inhalation Q4H PRN 04/23/25 05/03/25 Rx (0.083 %) solution for nebulization shortness of breat h or wheezing #0 mL fludrocortisone 0.1 mg tablet 0.1 mg PO BID hypotensio n #0 tabs 04/23/25 05/03/25 Rx insulin lispro 100 unit/mL See Protocol subcut ACHS di abetes 04/23/25 Unknown Rx subcutaneous pen (Humalog KwikPen #0 mL (U-100) Insulin) midodrine 5 mg tablet 10 mg (2 x 5 mg) PO TIDCM Unknown Rx Held on 05/04/25. hypotension #0 tabs Instructions: NOT ORDERED IN PATIENT nutrition tx glu 120 ml PO TIDCM supplement # 0 mL 04/23/25 05/03/25 Rx intol,lac-free,soy-fiber 0.06 gram-1.2 kcal/mL liquid (Glucerna 1.2 Gonzalo) insulin glargine-yfgn 100 unit/mL 15 unit subcut QHS d iabetes 05/04/25 05/03/25 History (3 mL) subcutaneous pen Allergy/AdvReac Type Severity Reaction Status Date / Time ibuprofen Allergy Severe Facial Verified 05/01/25 09:47 swelling (angioedema) Family History Brother Diabetes Father [...] long ago did patient quit smokin years Review of Systems (Anesthesia) ROS Narrative System reviewed and no additional complaints, except as documented. 05/04/25 8356 <Electronically signed by Joby Desir MD > Date _ Joby Amos Signature: Date CC: ~ Signed [facility] Work Phone: 1(450) 900-418409-15-2025 Procedure [facility] 05-04-2025 Procedure [facility]09-15-2025 [facility] Progress note Author Tonio [facility] Note Date/Time April 23, 2025 3:14pm [facility] Medical Records Department [address] [place] [address] Progress Note - Hospitalist 04/23/25 1512 MR#: [id number] Acct: [id number] Name: PEDRO HILLMAN Rep #:[id number] : 1945 80 From: Tonio Mccallum DO PCP: Dr. Tonio Fajardo, Status:ADM IN Location: [place] [address]- Reason for Visit Chief Complaint: Syncopal episode [...] 96 Nasal Cannula 2 04/23/25 14:00 04/23/25 14:04/23/25 14:00 04/23/25 14:00 04/23/25 14:00 04/23/25 14:00 [...] 1493.75 / 1493.75 793.75 / 793.75 2049 Medical Nutrition Assessment Dietitian: Malnutrition Criteria Met Start: 04/20/25 14:15 Freq: Status: Active Protocol: Document 04/20/25 14:15 RMA (Rec: 04/20/25 14:16 RMA [id number]) Nutrition Malnutrition Evidence of Yes Malnutrition Exists [...] will be given to the patient with Supremex. Nutritional services is participating inhis care Total clinical time spent by myself addressing the patient's medical issues, reviewing all of his data, and collaborating with the patient's care team: 35 minutes Charges/Coding Visit Charges Inpatient E&M: 13828 Subs Hosp L2 04/23/25 7380 <Electronically signed by Tonio Tereletsky DO> Cosigner Signature (if applicable): CC: ~ Signed [facility] Work Phone: [phone]) 772-751509-04-2025 [facility]09-04-2025 Hospital Discharge instructionsAdditional Instructions Monitor blood pressure closely, it may be necessary to cut back or discontinue midodrine and/or Florinef Date of Discharge: 04/23/25[facility] Work Phone: 1(882) 597-263309-03-2025 Progress note Author Tonio Mccallum [facility] Note Date/Time April 22, 2025 6:27pm [facility] Medical Records Department [address] [place] [address] Progress Note - Hospitalist 04/21/251910 MR#: [id number] Acct: [id number] Name: PEDRO HILLMAN Rep #:[id number] : 1945 80 From: Tonio Mccallum DO PCP: Dr. Tonio Fajardo, DO Status:ADM IN Location: [place] [id number]- [id number] Reason for Visit Chief Complaint: Syncopal episode Subjective Subjective Patient was seen and examined today, patient felt lightheaded when he got up to move around with physical therapy, I elected to place him on midodrine today andreevaluate him tomorrow. I will continue his IV fluid and hopefully he will be able to go back to longterm tomorrow. Patient stated this morning that he [...] 04/20/25 14:15 RMA (Rec: 04/20/25 14:16 RMA [id number]) Nutrition Malnutrition Evidence of Yes Malnutrition Exists [...] be given to the patient with med NoDaysOff. Nutritional services is participating inhis care Total clinical time spent by myself addressing the patient's medical issues, reviewing all of his data, and collaborating with the patient's care team: 35 minutes Charges/Coding Visit Charges Inpatient E&M: 59754 Subs Hosp L2 04/22/25 9200 <Electronically signed by Tonio Mccallum DO> Cosigner Signature (if applicable): CC: ~ Signed [facility] Work Phone: 1(478) 530-638909-02-2025 Note. MICRO - Microbiology PROCEDURE: Fungal Culture [...] Locations *1: This test was performed at: [address], [facility]- , [facility] [id number] Progress note Author Tonio [facility] Note Date/Time April 20, 2025 6:18pm [facility] Medical Records Department [address] [place] [address] Progress Note - Hospitalist 04/20/25 1811 MR#: [id number] Acct: [id number] Name: PEDRO HILLMAN Rep #:[id number] : 1945 80 From: Tonio Mccallum DO PCP: Dr. Tonio Fajardo DO Status:ADM IN Location: [facility] [id number]- 1 Reason for Visit Chief Complaint: Syncopal [...] 04/20/25 14:15 RMA (Rec: 04/20/25 14:16 RMA [id number]) Nutrition Malnutrition Evidence of Yes Malnutrition Exists [...] 35 minutes Charges/Coding Visit Charges Inpatient E&M: 97746 Subs Hosp L2 04/20/25 1818 <Electronically signed by Tonio Mccallum DO> Cosigner Signature (if applicable): CC: ~ Signed [facility] Work Phone: 1(176) 905-384609-01-2025 Note. MICRO - Microbiology PROCEDURE: Culture Body [...] Locations *1: This test was performed at: [facility], [address] [place] [address], [address]- , [facility]08-31-2025 [facility]08-[facility]25 History and physical note Author Kwaku Narayanan [facility] Note Date/Time April 19, 2025 2: 22pm [facility] Medical Records Department [address] [place] [address] H&P Exam - Hospitalist 04/19/25 1031 MR#: [id number] Acct: [id number] Name: PEDRO HILLMAN Rep #:[id number] : 1945 80 From: Kwaku santiago DO PCP: Dr. Tonio Fajardo, DO Status:ADM FELICIANO Location: U QDF131- 1 HPI - General General Date of Admission: 04/19/25 Date of Service: 04/19/25 Chief Complaint: Syncopal episode HPI Narrative PEDRO HILLMAN, is a 80 M who presented to [facility] ED on 04/19/2025 from the TCU for [...] COPD exacerbation. He was then transferred to [facility] for further management. There he had an [...] currently. Will be admitted for further management. [facility], [facility] Medical History (Updated 04/19/25 @ 14:[address] Kwaku Narayanan, DO) Presence of cardiac pacemaker Peripheral arterial disease Other persistent atrial fibrillation New onset atrial flutter COVID Wears hearing aid in both ears Former smoker Coronary artery disease Peripheral vascular occlusive disease BPH (benign prostatic hyperplasia) Chronic kidney disease, stage 3 Atherosclerosis of coronary artery of ewiiaapaayp heart without angina pectoris Hyperlipidemia Lower extremity [...] hr (Mucinex) #20 tabs OXYGEN - Supplemental ([facility] 04/09/25 Unknown History INFORMATIONAL USE ONLY) [...] 75.0 H, Lymph % (Auto) 9.1 L, Bladen % (Auto) 11.3 H, Eos % (Auto) [...] CHF compared to x-ray 04/12/2025. Reading Location: [facility] Assessment & Plan Assessment/Plan (1) Syncope: (2) Orthostatic hypotension: PLAN: Plan Patient is an 80-year-old male who presented to [facility] ED on04/19/2025 from the TCU for syncope. [...] home oxygen on admit. Recent hospitalization at [facility] from 04/12-04/17 for right sided hydropneumothorax, community-acquired ammonia and COPD exacerbation, see [facility] forfurther details. In short, had thoracentesis done [...] Toprol 25 mg twice daily during recent [facility] admission but given his presyncopal symptoms here [...] 78 minutes. Charges/Coding Visit Charges Inpatient E&M: 99975 Init Hosp L3 04/19/25 1422 <Electronically signed by Kwaku Narayanan DO> Cosigner Signature (if applicable): CC: Dr. Kwaku Narayanan, ; Dr. Tonio Fajardo DO~ Signed [facility] Work Phone: 1(901) 207-126008-31-2025 Discharge summary Author Casper Iniguez [facility] Note Date/Time April 19, 2025 10 :43am [facility] Medical Records Department [address] [place] [address] Emergency Department Summary 04/19/25 MR#: [id number] Acct: [id number] Name: PEDRO HILLMAN Rep #:[id number] : 1945 80 From: Casper Pyle PCP: Dr. Tonio Fajardo DO Status:REG ER Location: ED HPI History of Present Illness Chief Complaint: Syncope [facility] Medical History Presence of cardiac pacemaker Peripheral arterial disease Other persistent atrial fibrillation New onset atrial flutter COVID Wears hearing aid in both ears Former smoker Coronary artery disease Peripheral vascular occlusive disease BPH (benign prostatic hyperplasia) Chronic kidney disease, stage 3 Atherosclerosis of coronary artery of ewiiaapaayp heart without angina pectoris Hyperlipidemia Lower extremity [...] hr (Mucinex) #20 tabs OXYGEN - Supplemental ([facility] 04/09/25 Unknown History INFORMATIONAL USE ONLY) [...] vascular disease status post aortofemoral bypass in 2010, recent pacemaker placement this presents concern for syncope. Patient notes when he attempts to rise from a seated position gets lightheaded and subsequently passes out. Denies any prodromal symptoms such as headache, chest pain, abdominal pain. Notes he may be dehydrated but denies any vomiting or diarrhea. Denies any cough fever or chills. Notes his pacemaker was placed recently at [facility]. Denies any pain over pacemaker site. REVIEW [...] records reviewed: Pacemaker was placed here with [facility] on 04/09/[address] Hsu [...] - Noted patient safe to stay at [facility]. States he should be able to evaluate [...] to PCU This note was generated with [employer] dictation software. It may contain incorrectwords, spelling, [...] 75.0 H Lymph % (Auto) 9.1 L Bladen % (Auto) 11.3 H Eos % (Auto) [...] CHF compared to x-ray 04/12/2025. Reading Location: [facility] Discharge Plan Triage Chief Complaint: Syncope ED [...] Qty: 60 0RF (DME) OXYGEN - Supplemental ([facility] INFORMATIONAL USE ONLY) Gas See Rx Instructions .ROUTE Patient Comments: 2 lpm at rest, 3 lpm on exertion, 2 lpm at HS DME company: [employer] per Rx Instructions: As directed ipratropium-albuterol 0.5 mg-3 [...] [Primary Care Provider] - Print Language: German What to do if you have Problems For any increased pain, shortness of breath, bleeding, nausea or vomiting, chestpain, or any unexpected problems, contact your Primary Care Provider. Call [facility] ([phone]) or report to the closest Emergency Room. Call 911 if necessary. 04/19/25 1043 <Electronically signed by Casper Iniguez DO> Cosigner Signature (if applicable): CC: Dr. Tonio Fajardo DO ~ Signed [facility] Work Phone: 1(335) 132-100908-31-2025 Progress note Author Mukul Barbosa [facility] Note Date/Time April 19, 2025 10 :10am [facility] Medical Records Department [address] [place] [address] Progress Note - Pharmacy 04/19/25819 MR#: [id number] Acct: [id number] Name: PEDRO HILLMAN Rep #:[id number] : 1945 80 From: Mukul Barbosa PCP: Dr. Tonio Fajardo DO Status:ADM IN Location: U U22-1 Documented by User: Mukul Barbosa 04/19/25 08:39 [...] 22:00 04/19/25 08:07 Apixaban 2.5 Mg Tablet ([facility]) PO 2.5 mg BID FROY Administration [...] by Valdez Olivo MD> CC: ~ Signed [facility] Work Phone: 1(501) 109-253008-31-2025 Radiology Diagnostic study [facility]08-30-2025 Note. MICRO - Microbiology PROCEDURE: Blood Culture [...] Locations *1: This test was performed at: [facility], [address] [place] [address], [facility] , [facility]08-30-2025 Note. MICRO - Microbiology PROCEDURE: Blood [...] Locations *1: This test was performed at: [facility], [address] [place] [address], [address]- , [facility] [id number] History and physical note Author Valdez [facility] Note Date/Time April 18, 2025 6: 56am [facility] Medical Records Department [address] [place] [address] History & Physical Exam 04/17/251940 MR#: [id number] Acct: [id number] Name: PEDRO HILLMAN Rep #:[id number] : 1945 80 From: Valdez Olivo MD PCP: Dr. Tonio Fajardo, DO Status:ADM IN Location: TCU TCU22-1 HPI - General General Date of Admission: 04/17/25 Date of Service: 04/18/25 Chief Complaint: Here for rehabilitation. HPI Narrative PEDRO HILLMAN, is a 80 Male who presents with followin04/12/2025 [facility] ED TCU resident shortness of breath, hypoxia, tachycardia. Diagnosed with pneumothorax, pneumonia, acute on chronic HFpEF, COPD exacerbation. Transfer to [facility] 2/ complicated pneumothorax. 04/13/2025 Admit [facility]. Ceftriaxone, Azithromycin, blood cultures, urinary antigens for [...] rehabilitation, strengthening, prior to discharge home alone. [facility] Medical History (Updated 04/18/25 @ 00:01 by Background Daemon) Presence of cardiac pacemaker Peripheral arterial disease Other persistent atrial fibrillation New onset atrial flutter COVID Wears hearing aid in both ears Former smoker Coronary artery disease Peripheral vascular occlusive disease BPH (benign prostatic hyperplasia) Chronic kidney disease, stage 3 Atherosclerosis of coronary artery of ewiiaapaayp heart without angina pectoris Hyperlipidemia Lower extremity [...] hr (Mucinex) #20 tabs OXYGEN - Supplemental ([facility] 04/09/25 Unknown History INFORMATIONAL USE ONLY) [...] Fajardo, DO; Dr. Valdez Olivo MD~ Signed [facility] Work Phone: 1(396) 738-853108-29-2025 [facility]08-29-[facility]25 Discharge summary Date of Service 04/17/2025 [...] thoracentesis and was admitted to rehab at [facility]. Patient found to have hypoxia and [...] cardiothoracic surgery, he was transferred to [facility]. Patient admitted to hospital service, started [...] Date: April 14, 2025 Verified By: LEVI MRACIAL MD CLINICAL STATEMENT: IMPRESSION: 1. Moderate pulmonary [...] tablet)500 Milligram by mouth every day. insulin [id number] unit(s) Subcutaneous daily at bedtime. metoprolol (metoprolol [...] mouth every 12 hours for 5 Days. [id number] Milligram by mouth two (2) times a day for 5 Days. Follow Up Follow Up with TONIO FAJARDO DO When:Within 1-2 days Where:[address] [place] [address]- Additional Information: Please call the office to [...] by JERO ROSARIO on 04/17/2025 01:18 PM [id number] Discharge instructions Patient Education 04/17/2025 13:56:28 [...] says it is okay. General instructions Take volz-aoi-oteawst and prescription medicines only as told by [...] 08/06/2006 Document Revised: 07/19/2018 Document Reviewed: 07/15/2018 Medical Referral Source Patient Education 2020 [employer]. Follow Up Care 04/13/2025 00:27:18 With:Waqar [facility] - [phone] Address:Unknown When:1-2 days With:TONIO FAJARDO DO Address: [address] [place] [address]- When:1-2 days Comments:Please call the office to schedule a hospital follow up appointment. [facility] 08-29-2025 Note Discharge Instructions Thank you for allowing [facility] to assist you with your healthcare needs. The following is importantdischarge information regarding your hospital visit. Your Care Team TONIO FAJARDO DO Your Diagnosis Atrial fibrillation BPH (benign prostatic hyperplasia) CAD in ewiiaapaayp artery s/p CABG Cardiac pacemaker in situ Chronic anemia CKD (chronic kidney disease) COPD with hypoxia Diabetes Diastolic heart failure Elevated troponin HLD (hyperlipidemia) HTN (hypertension) PAD (peripheral artery disease) Peripheral neuropathy Pneumonia Right Hydropneumothorax What to do next Follow Up Appointments Follow Up with Waqar [facility] [phone] When:Within 1-2 days Follow Up with TONIO FAJARDO DO When:Within 1-2 days Where:[address] [place] [address]- Additional Information: Please call the office to [...] says it is okay. General instructions Take hjhl-nhg-mciucfc and prescription medicines only as told by [...] 08/06/2006 Document Revised: 07/19/2018 Document Reviewed: 07/15/2018 Medical Referral Source Patient Education 2020 [employer] Additional Information VACCINATE! IT SAVES LIVES! Members of the community who have not yet received the COVID-19 vaccine and would like to receive it can visit one of [facility] vaccine clinics. There are many vaccine clinic locations within the [facility]. For locations and available times, please visit [email or web address].gov/. It is important to note that some COVID mobile vaccine clinics are held outdoors and may be canceled in rainy or stormy conditions. To learn more about pediatric vaccinations (ages 5-11), we invite you to visit the [facility] webpage. [email or web address] learn more about the COVID-19 vaccine, we invite you to visit the CDC website for a list of frequently asked questions.https://www.cdc.gov/coronavirus/2019-ncov/vaccines/faq.html [facility] Patient Portal Access Instructions: Stay connected with your healthcare team and access your personal medical information anytime with the [facility] Patient Portal. Please follow the directions below to create your [facility] account: 1.Access the email account you provided upon registration to the hospital/physician office.2.Look for an invitation email from [facility].3.Open the email and access the invitation link: AcceptInvitation to [facility].4.Fill in the required johnson to create your account. To access your account, visit [email or web address]. Click the blue button labeled Access Patient Portal and then log in with the username and password that you created in the steps above. You will be able to view your test results, lab results, a summary of your visits, upcoming appointments and more. There is also a convenient messaging option where you can send secure messages to your p Gameyolavider. In addition, you will have the ability to download any documents or summaries to your computer and/or send the information securely to a physician. Remember that your healthcare information is confidential, so carefully consider who you will allowto register on the [facility] Patient Portal for access to your information. You can also access the [employer]Chart Patient Portal on the [employer] Anywhere katia. Simply click on Patient Portal and then log into your account. If you would like to receive a full copy of your medical records, please contact the [facility] Medical Records Department by calling [phone], Sunday through Sunday between 8 a.m. and [...] Call your local pharmacy or go to [email or web address] to find one close to you.3.Make use of household items: Use cat litter or old coffee grounds to dispose medications if other options arenot available. Mix your drugs with these household products, seal them in an airtight container andthrow it into the garbage. Call [facility]: [phone] to be sure your drugs can be [...] aware that I should contact my doctor. 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 The following is importantdischarge information regarding your hospital visit. 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 There are many vaccine clinic locations within the [facility]. For locations and available times, please visit [email or web address]/. It is important to note that some COVID mobile vaccine clinics are held outdoors and may be canceled in rainy or stormy conditions. To learn more about pediatric vaccinations (ages 5-11), we invite you to visit the [facility] webpage. [email or web address].[email or web address].org/pages/9286-Nweyg-Nwuxschzodv-Klinitybll-Zyenl-Aea stions.htmlTo learn more about the COVID-19 vaccine, we invite you to visit the CDC website for a list of frequently asked questions.https://www.cdc.gov/coronavirus/2019-ncov/vaccines/faq.html [facility] Patient Portal Access Instructions: Stay connected with your healthcare team and access your personal medical information anytime with the [facility] Patient Portal. Please follow the directions below to create your [facility] account: 1.Access the email account you provided upon registration to the hospital/physician office.2.Look for an invitation email from [facility].3.Open the email and access the invitation link: AcceptInvitation to [facility].4.Fill in the required johnson to create your account. To access your account, visit [email or web address]. Click the blue button labeled Access Patient [...] who you will allowto register on the [facility] Patient Portal for access to your information. You can also access the [facility] Patient Portal on the [facility] katia. Simply click on Patient Portal and then log into your account. If you would like to receive a full copy of your medical records, please contact the [facility] Medical Records Department by calling [phone], Sunday through Sunday between 8 a.m. and [...] Call your local pharmacy or go to http://bit.ly/6R4Mp2k to find one close to you.3.Make use of household items: Use cat litter or old coffee grounds to dispose medications if other options arenot available. Mix your drugs with these household products, seal them in an airtight container andthrow it into the garbage. Call [facility]: [phone] to be sure your drugs can be [...] aware that I should contact my doctor. 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 Patient found to have hypoxia and [...] cardiothoracic surgery, he was transferred to [facility]. Patient admitted to hospital service, started [...] tablet)500 Milligram by mouth every day. insulin nzgejics89 unit(s) Subcutaneous daily at bedtime. metoprolol (metoprolol succinate 25 mg oral TABLET extended release)0.5 tab(s) by mouth two (2) times a day. Do not crush or chew (controlled release). multivitamin with minerals (Multi-Braden)1 tab by mouth every day. pnatsaofsdo27 Milligram by mouth once a day. SITagliptin (Januvia 50 mg oral tablet)1 tab(s) by mouth once a day. tamsulosin (tamsulosin 0.4 mg oral capsule)1 cap by mouth once a day. umeclidinium-vilanterol (Anoro Ellipta 62.5 mcg-25 mcg/inh inhalation powder)1 puff(s) by inhalation once a day. Discontinued cefdinir (cefdinir 300 mg oral capsule)1 cap by mouth every 12 hours for 5 Days. cywyfvPNVS38 Milligram by mouth two (2) times a day for 5 Days. Follow Up Follow Up with TONIO FAJARDO DO When:Within 1-2 days Where:[address] [place] [address]- Additional Information: Please call the office to [...] by JERO ROSARIO on 04/17/2025 01:18 PM [facility] HealthcareBdfzkevq63-71-0992 Note* Exam Date Time Procedure Performing Provider Status 04/17/25 7:03 AM XR Chest 1 View KRISTEN MAKI MD; Aut h (Verified) [id number] ORIGINAL EXAMINATION: ONE XRAY VIEW OF THE [...] 04/17/2025 8:12:37 AM Ordering Provider: GLORIA DAVIS [facility] HealthcareOevakkcl55-25-0483 NoteORIGINAL PROCEDURE: ULTRASOUND GUIDED THORACENTESIS CLINICAL STATEMENT: [...] Sign Date: 04/16/2025 5:19:34 PM Ordering Provider: [facility] [id number] Note Date of Service 04/16/2025 Chief Complaint [...] thoracentesis and was admitted to rehab at [facility]. Patient found to have hypoxia and [...] cardiothoracic surgery, he was transferred to [facility]. 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 MICRO - Microbiology PROCEDURE: Acid Fast Bacilli Culture w Stain if Ind [*1] SOURCE: Thoracentesis Fluid BODY SITE: COLLECTED DATE/TIME: 04/15/2025 08:52 EDT RECEIVED DATE/TIME: 04/15/2025 14:18 EDT START DATE/TIME: 04/15/2025 14:18 EDT FREE TEXT SOURCE: STAINS AFS [] Verified Date/Time/Personnel: 04/16/2025 12:33 EDT Acid Fast Smear from Concentrated Specimen: Negative Performing Locations *1: This test was performed at: [facility], [address] [place] [address], [address] , [facility]08-28-2025 Nurse Progress note I was ambulating [...] by [place] on 04/16/2025 10:23 AM [facility] HealthcareTxvpmnfp26-31-8086 Note Date of Service 04/15/2025 Chief Complaint [...] thoracentesis and was admitted to rehab at [facility]. Patient found to have hypoxia and [...] cardiothoracic surgery, he was transferred to [facility]. 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 Plan for discharge back to longterm facility once medically stable. No family at [...] GLORIA DAVIS MD on 04/15/2025 04:24 PM [facility] HealthcareXkyeijpq58-62-6518 Note* Exam Date Time Procedure Performing Provider Status 04/15/25 11:36 AM XR Chest 1 View SHAHBAZ FOLEY MD; Aut h (Verified) [id number] ORIGINAL EXAMINATION: ONE XRAY VIEW OF THE [...] 04/15/2025 11:43:46 AM Ordering Provider: OLAMIDE GONZALEZ [facility] HealthcareZferkcff58-36-7394 Note* Exam Date Time Procedure Performing Provider Status 04/15/25 11:35 AM US Thoracentesis Right NUNOGIBSON; Auth (Verified) [id number] ORIGINAL PROCEDURE: ULTRASOUND GUIDED THORACENTESIS CLINICAL STATEMENT: [...] Sign Date: 04/16/2025 5:19:34 PM Ordering Provider: [facility]08-27-2025 Note US Procedure Record Summary Primary Physician: OLAMIDE GONZALEZ PA-C Finalized Date/Time: 04/15/25 11:32:18 Pt. Name: PEDRO HILLMAN D.O.B./Sex: 1945 Male Med Rec #: [id number] Physician: DAVID STERLING MD Financial #: [id number] Pt. Type: I Room/Bed: [facility]/ Admit/Disch: 04/13/25 05:27:00 - Institution: Allergies identified in patient's electronic medical record at time of printing on 04/15/25 Entry 1 Substance ibuprofen Reaction Type Allergy Last Modified By: KHURRAM Merchant 04/13/25 06:04:52 Case Attendance- US Entry 1 Entry 2 Case Attendee OLAMIDE GONZALEZ Lauren M PA-C Role Performed Primary Surgeon Business Information Analyst Details Time In 04/15/25 11:08:00 04/15/25 11:08:00 [...] Data- US Entry 1 Case Information Room [facility] Receiving Case Level IR Level 2 Wound [...] instrumentation, sponges, or sharps). Outcomes Met? Yes Trade Show Manager OLAMIDE GONZALEZ Completing PA-C Procedure Plan Last Modified By: Michaela Barnard 04/15/25 11:16:00 Radiology Lines and Procedures- US Entry 1 Radiology Sedation Case Times Sedation Total Time 0 Radiology - Fluid/Drainage Fluid Amount mL: 1000 ml Fluid Description sheldon RAD - US [place], Guidewires, Cath.... Catheters OneStep Catheter 5 Fr [...] Signatures Signed By: Michaela Barnard 04/15/25 11:32 [facility] HealthcareQffrpjuj77-74-3795 NoteBody Fluid Path ReviewNegative for malignant cells. [...] volume removed unknown). He was discharged to [place] rehab facility same day. While at rehab facility, he was noted to be hypoxic and tachycardic and a chest x-ray was completed showing aright pneumothorax. He was taken to [place] emergency room where he was further evaluated [...] on 100% nonrebreather mask, and transferred to [facility] for further evaluation. Cardiothoracic surgery has [...] anemia 13. HTN (hypertension) 14. 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 Diastolic heart failure 16. COPD with hypoxia 48 minutes of independent KATIA time spent obtaining past medical history from EMR, conducting [facility] to request CT of the chest imaging, completing qlpv-id-comc visit with patient at bedside, obtaining physical exam, and dictating details of today's consultation. Problem List/Past Medical History Ongoing Atrial fibrillation BPH (benign prostatic hyperplasia) CAD in ewiiaapaayp artery Cardiac pacemaker in situ Chronic anemia [...] by COLLEEN DOE on 04/13/2025 03:08 PM [facility] HealthcareCtxdxrox72-80-0557 Note* Exam Date Time Procedure Performing Provider Status 04/15/25 6:48 AM XR Chest 1 View LEVI MARCIAL MD; Auth (Verified) [id number] ORIGINAL EXAMINATION: ONE XRAY VIEW OF THE [...] effusions. No pneumothorax is visible. Interpreted by: Lvei Marcial MD Preliminary Report By: Levi Marcial MD Electronically signed By Levi Marcial MD Dictated Date: 04/15/2025 7:20:27 AM Prelim Date: 04/15/2025 7:22:03 AM Sign Date: 04/15/2025 7:22:03 AM Ordering Provider: GLORIA DAVIS [facility] HealthcareRdpgiitp49-06-4754 Note* Exam Date Time Procedure Performing Provider Status 04/14/25 9:03 PM Electrocardiogram - EKG - CV GOP BRAYAN JARAMILLO MD; Auth (Verified) ECG Final Report SINUS TACHYCARDIA VENTRICULAR PREMATURE COMPLEX RIGHT BUNDLE BRANCH BLOCK Electronic Signature: BRAYAN FRANCO MD 04/15/2025 22:51:41 [facility] HealthcareXzclvzae49-83-9219 Note Date of Service 04/14/2025 Chief Complaint [...] fibrillation BPH (benign prostatic hyperplasia) 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 Discussed with cardiothoracic surgery FAMILY NURSE. Will give one-time dose of IV Lasix [...] for now. Plan for discharge back to longterm facility once medically stable. Note was dictated [...] GLORIA DAVIS MD on 04/14/2025 04:44 PM [facility] HealthcareZjneyqqz97-33-4131 Note. MICRO - Microbiology PROCEDURE: Legionella Urine [...] Locations *1: This test was performed at: [facility], [address] [place] [address], [facility] , [facility]08-26-2025 Note. MICRO - Microbiology PROCEDURE: Streptococcus [...] Locations *1: This test was performed at: [facility], [address] [place] [address], [facility] , [facility]08-26-2025 Note* Exam Date Time Procedure Performing Provider Status 04/14/25 6:55 AM XR Chest 1 View LEVI MARCIAL MD; Auth (Verified) [id number] ORIGINAL EXAMINATION: ONE XRAY VIEW OF THE [...] 04/14/2025 7:00:29 AM Ordering Provider: COLLEEN DOE [facility] HealthcareNkiqxvnk16-80-4354 History and physical note [facility] Hospitalist History and Physical Date [...] the patient had a pacemaker placed at [facility]. On Sunday of this past week the [...] CT chest without contrast showed right loculated [place] pneumothorax of estimated 15% of the right thoracic volume occupied by air. Patches of dense consolidating right pneumonia. Sizable peripheral blebs and honeycombing in the left mid and base. Prior to transfer they did discuss the case with cardiothoracic surgery high school professional and the patient wasgiven vancomycin and Zosyn. [...] Vitals Signs(Last 24 hrs)__Last Charted Minimum Maximum FER875(APR 13 05:28)135(APR 13 05:28)135(APR 13 05:28) DBP78(APR [...] DAVID STERLING MD on 04/13/2025 05:49 AM [facility] HealthcareUtjecmyu84-09-4025 Respiratory therapy Hospital Progress note Respiratory Therapy [...] by Summer Hankins on 04/13/2025 04:09 PM [facility] HealthcareVggymlpq89-30-0669 Cardiothoracic surgery Consult note Date of Service [...] volume removed unknown). He was discharged to [place] rehab facility same day. While at rehab facility, he was noted to be hypoxic and tachycardic and a chest x-ray was completed showing aright pneumothorax. He was taken to [place] emergency room where he was further evaluated [...] on 100% nonrebreather mask, and transferred to [facility] for further evaluation. Cardiothoracic surgery has [...] anemia 13. HTN (hypertension) 14. 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 Diastolic heart failure 16. COPD with hypoxia 48 minutes of independent KATIA time spent obtaining past medical history from EMR, conducting [facility] to request CT of the chest imaging, completing wzsd-fy-lpwc visit with patient at bedside, obtaining physical exam, and dictating details of today's consultation. Problem List/Past Medical History Ongoing Atrial fibrillation BPH (benign prostatic hyperplasia) CAD in ewiiaapaayp artery Cardiac pacemaker in situ Chronic anemia [...] by COLLEEN DOE on 04/13/2025 03:08 PM [facility] HealthcareAkvxvviy23-67-7397 Note* Exam Date Time Procedure Performing Provider Status 04/13/25 2:42 PM XR Chest 1 View MÓNICA ZALDIVAR [facility] (Verified) [id number] ORIGINAL EXAMINATION: ONE XRAY VIEW OF THE [...] 04/13/2025 2:58:50 PM Ordering Provider: COLLEEN DOE [facility] HealthcareEdtdaptg36-28-8565 Evaluation + Plan noteExtracted from: Title:Clinical Document Author:DAVID STERLING MD Date:04/13/25 [facility] Hospitalist History and Physical Date [...] the patient had a pacemaker placed at [facility]. On Sunday of this past week the [...] CT chest without contrast showed right loculated [place] pneumothorax of estimated 15% of the right thoracic volume occupied by air. Patches of dense consolidating right pneumonia. Sizable peripheral blebs and honeycombing in the left mid and base. Prior to transfer they did discuss the case with cardiothoracic surgery high school professional and the patient was given vancomycin and [...] Vitals Signs(Last 24 hrs)__Last Charted Minimum Maximum IXP081(APR 13 05:28)135(APR 13:)135(APR 13:) DBP78(APR 13:)78(APR 13:)78(APR [...] care with patient and family at bedside. [facility] 08-25-2025 Note Reason for Consultation Admission From: [...] Other: Medihoney/adaptic/foam to right knee. Betadine to ejhwy7do, and 4th toes. Eucerin cream to BLE. Education Individuals Taught: Patient Learning Readiness: Willing to learn Barriers to Learning: Acuity of illness Teaching Method: Explanation Digitally Signed by Carol Galvin RN on 04/13/2025 01:26 PM [facility] HealthcarePhlsjsew89-59-4757 [facility]08-25-2025 History and physical note [facility] Hospitalist History and Physical Date [...] the patient had a pacemaker placed at [facility]. On Sunday of this past week the [...] CT chest without contrast showed right loculated [place] pneumothorax of estimated 15% of the right thoracic volume occupied by air. Patches of dense consolidating right pneumonia. Sizable peripheral blebs and honeycombing in the left mid and base. Prior to transfer they did discuss the case with cardiothoracic surgery high school professional and the patient wasgiven vancomycin and Zosyn. [...] Vitals Signs(Last 24 hrs)__Last Charted Minimum Maximum MZP103(APR 13:28)135(APR 13:)135(APR 13:) DBP78(APR 13:)78(APR 13:)78(APR 13:) Physical [...] DAVID STERLING MD on 04/13/2025 05:49 AM [facility] HealthcareHboozvsg16-94-1177 History and physical note [facility] Hospitalist History and Physical Date [...] the patient had a pacemaker placed at [facility]. On Sunday of this past week the [...] CT chest without contrast showed right loculated [place] pneumothorax of estimated 15% of the right thoracic volume occupied by air. Patches of dense consolidating right pneumonia. Sizable peripheral blebs and honeycombing in the left mid and base. Prior to transfer they did discuss the case with cardiothoracic surgery high school professional and the patient wasgiven vancomycin and Zosyn. [...] Vitals Signs(Last 24 hrs)__Last Charted Minimum Maximum HHJ024(APR 13 05:28)135(APR 13:)135(APR 13:) DBP78(APR 13:)78(APR 13:)78(APR [...] DAVID STERLING MD on 04/13/2025 05:49 AM [facility] HealthcareSnnnovkm57-08-9770 Discharge summary Author Daniel Bronwlee [facility] Note Date/Time April 13, 2025 12 :09am [facility] Medical Records Department [address] [place] [address] Emergency Department Summary 04/12/25 MR#: [id number] Acct: [id number] Name: PEDRO HILLMAN Rep #:[id number] : 1945 80 From: Daniel Brownlee DO [...] complaints himself at this point in time. [facility] Medical History Presence of cardiac pacemaker Peripheral arterial disease Other persistent atrial fibrillation New onset atrial flutter COVID Wears hearing aid in both ears Former smoker Coronary artery disease Peripheral vascular occlusive disease BPH (benign prostatic hyperplasia) Chronic kidney disease, stage 3 Atherosclerosis of coronary artery of ewiiaapaayp heart without angina pectoris Hyperlipidemia Lower extremity [...] s 04/08/25 Unknown Rx OXYGEN - Supplemental ([facility] 04/09/25 Unknown History INFORMATIONAL USE ONLY) [...] with a rate of 111 bpm with SD interval of 86. Patient's proBNP elevated 7022. [...] transfer giventhe complex pneumothorax. Discussed case with [facility] physician Dr. Sterling who accept patient for [...] 92.5 H Lymph % (Auto) 2.5 L Bl[place] % (Auto) 4.2 Eos % (Auto) 0.0 [...] left mid zone and base. Reading [facility] Discharge Plan Triage Chief Complaint: [...] Qty: 60 0RF (DME) OXYGEN - Supplemental ([facility] INFORMATIONAL USE ONLY) Gas See Rx Instructions .ROUTE Patient Comments: 2 lpm at rest, 3 lpm on exertion, 2 lpm at HS DME company: [employer] Rx Instructions: As directed metoprolol succinate 25 [...] your Primary Care Provider. Call [facility] ([phone]) or report to the closest Emergency Room. Call 911 if necessary. 04/13/25 0009 <Electronically signed by Daniel Brownlee DO> Cosigner Signature (if applicable): CC: Dr. Tonio Fajardo DO ~ Signed [facility] Work Phone: 1(529) 185-903608-24-2025 Radiology Diagnostic study [facility]08-24-2025 Radiology Diagnostic study [facility]08-22-2025 History and physical note Author Valdez Olivo [facility] Note Date/Time April 10, 2025 8: 47pm [facility] Medical Records Department [address] [place], [place] [address] [address] History & Physical Exam 04/10/252025 MR#: [id number] Acct: [id number] Name: PEDRO HILLMAN Rep #:[id number] : 1945 80 From: Valdez Olivo MD PCP: Dr. Tonio Fajardo DO Status:ADM IN Location: [facility] [id number] HPI - General General Date of Admission: 04/10/25 Date of Service: 04/10/25 Chief Complaint: Here for rehabilitation. HPI Narrative PEDRO HILLMAN, is a 80 Male who presents with followin04/05/2025 [facility] ED Hypotension. Worsening productive cough, copd, [...] given. Insulin/glucose for hyperkalemia 5.8. 04/05/2025 Admit [facility]. Lasix 40mg iv bid, Magnesium, albumin for acute HFpEF. Trend troponin for elevated troponin, probably demand ischemia. Kayexalate given for K 5.8. Ceftriaxone iv, urine culture pending for uti. 04/06/2025 Lasix 40mg iv bid acute HFpEF. Creatinine 2.57. Plavix stopped 2 nose bleed. 04/07/2025 Echo EF 55%. Lasix [...] rehabilitation, strengthening, prior to discharge home alone. [facility] Medical History (Updated 04/10/25 @ 20:[address] Valdez Olivo MD) Presence of cardiac pacemaker Peripheral arterial disease Other persistent atrial fibrillation New onset atrial flutter COVID Wears hearing aid in both ears Former smoker Coronary artery disease Peripheral vascular occlusive disease BPH (benign prostatic hyperplasia) Chronic kidney disease, stage 3 Atherosclerosis of coronary artery of ewiiaapaayp heart without angina pectoris Hyperlipidemia Lower extremity [...] s 04/08/25 Unknown Rx OXYGEN - Supplemental ([facility] 04/09/25 Unknown History INFORMATIONAL USE ONLY) [...] Fajardo DO; Dr. Valdez Olivo MD~ Signed [facility] Work Phone: 1(620) 988-414608-22-2025 [facility]08-22-2025 Discharge summary Author Nicola Rmoan [facility] Note Date/Time April 10, 2025 4: 10pm [facility] Medical Records Department [address] [place] [address] Transfer to [facility] Care MR#: [id number] Acct: [id number] Name: PEDRO HILLMAN Rep #:[id number] : 1945 80 From: Nicola Roman MD PCP: Dr. Tonio Fajardo, DO Status:ADM IN Certification of patient admission REQUIRED AT TIME OF ADMISSION. I CERTIFY THAT POST-HOSPITAL ECF SERVICES ARE REQUIRED TO BE GIVEN ON AN IN-PATIENT BASIS BECAUSE OF THE ABOVE NAMED PATIENT'S NEED FOR RETIREMENT CARE ON A CONTINUING BASIS FOR THE [...] with radiation therapy currently followed by [facility] oncology and will start 8. [...] 2RF No Action (DME) OXYGEN - Supplemental ([facility] INFORMATIONAL USE ONLY) Gas See Rx [...] Fajardo DO; Dr. Deric Lantigua MD ~ [facility] Work Phone: 1(918) 344-665108-22-2025 Discharge summary Author Nicola Franknora [facility] Note Date/Time April 10, 2025 4: 23pm [facility] Medical Records Department [address] [place] [address] Discharge Summary 04/10/25 1610 MR#: [id number] Acct: [id number] Name: PEDRO HILLMAN Rep #:[id number] : 1945 80 From: Nicola Roman MD PCP: Dr. Tonio Fajardo DO Status:ADM IN Location: [facility] [id number] Providers Date of Admission: 04/05/25 Date of Discharge: 04/10/25 Primary Care Physician: Dr. Tonio Fajardo DO Consultations 04/05/25 20:36 Consult: Nephrology Routine Consulting Provider: Davon Saravia Reason for Consult: CKD; stage IV with Hyperkalemia and AE CHF. EMERGENT Consult: No MD Notified: Yes Date Notified: 04/06/25 Time Notified: 06:58 Method of Notification: Answering Service 04/06/25 07:14 Consult: Onc/Wound/manager transplant Routine Comment: Reason for Consult:: burn R [...] with radiation therapy currently followed by [facility] oncology and will start 8. [...] BID #10 tabs 04/08/25 OXYGEN - Supplemental ([facility] INFORMATIONAL USE ONLY) 04/09/25 Physical Exam [...] (Auto) 91.6 H, Lymph % (Auto) 1.9L, [place] % (Auto) 5.5, Eos % (Auto) 0.0, [...] pleural effusions consistent with CHF. Reading Location: [facility] Chest CT 04/10/25 07:49 IMPRESSION: Coronary artery calcification (CAC) is is present Moderate right pleural effusion with compressive atelectasis in the right lower lobe as well as airspace disease in the right upper lobe with volume loss. Small left pleural effusion with left basilar atelectasis. Findings suggestive of CHF. Reading Location: [facility] Thoracentesis Ultrasound 04/10/25 09:12 IMPRESSION: Successful diagnostic and therapeutic ultrasound-guided right thoracentesis. Laboratory results pending. Reading Location: [place] [address] D/C Instructions Call your doctor if you [...] 2RF No Action (DME) OXYGEN - Supplemental ([facility] INFORMATIONAL USE ONLY) Gas See Rx [...] Self Care Charges/Coding Visit Charges Inpatient E&M: 62041 Disch Hosp >30min 04/10/25 1623 <Electronically signed by Nicola Roman MD> Cosigner Signature (if applicable): CC: Dr. Nicola Roman MD; Dr. Tonio Fajardo, ~ Signed [facility] Work Phone: 1(174) 375-168608-22-2025 [facility]08-22-2025 Radiology Diagnostic study [facility]08-22-2025 Hospital Discharge instructionsAdditional Instructions Date of Discharge: 04/10/25[facility] Work Phone: 1(596) 367-988108-22-2025 Progress note Author Nicola Roman [facility] Note Date/Time April 10, 2025 9: 18am [facility] Medical Records Department [address] [place] [address] Progress Note - Hospitalist 04/10/25 0750 MR#: [id number] Acct: [id number] Name: PEDRO HILLMAN Rep #:[id number] : 1945 80 From: Nicola Roman MD PCP: Dr. Tonio Fajardo DO Status:ADM IN Location: [place] [address] Reason for Visit Chief Complaint: SOB, Cough [...] (Auto) 91.6 H, Lymph % (Auto) 1.9L, Bladen % (Auto) 5.5, Eos % (Auto) 0.0, [...] pleural effusions consistent with CHF. Reading Location: [facility] Physical Exam Narrative S GENERAL: dyspneic at [...] with radiation therapy currently followed by [facility] oncology and will start 8. [...] 52 Minutes Charges/Coding Visit Charges Inpatient E&M: 15300 Subs Hosp L3 04/10/25 0918 <Electronically signed by Nicola Roman MD> Cosigner Signature (if applicable): CC: ~ Signed [facility] Work Phone: 1(435) 926-628708-22-2025 Radiology Diagnostic study [facility]08-21-2025 Radiology Diagnostic study [facility]08-21-2025 Procedure [facility]08-21-2025 Progress note Author Nicola Roman [facility] Note Date/Time April 09, 2025 11 :31am [facility] Medical Records Department [address] [place] [address] Progress Note - Hospitalist 04/09/251124 MR#: [id number] Acct: [id number] Name: PEDRO HILLMAN Rep #:[id number] : 1945 80 From: Nicola Roman MD PCP: Dr. Tonio Fajardo, DO Status:ADM IN Location: [place] [address] Reason for Visit Chief Complaint: SOB, Cough [...] Total 250 / 250 1100 / 1100 22. / Output Total 2200 / 2200 1600 / [...] (Auto) 91.8 H, Lymph % (Auto) 2.8L, Bladen % (Auto) 4.7, Eos % (Auto) 0.0, [...] with radiation therapy currently followed by [facility] oncology and will start 8. [...] 50 Minutes Charges/Coding Visit Charges Inpatient E&M: 94041 Subs Hosp L3 04/09/25 1131 <Electronically signed by Nicola Roman MD> Cosigner Signature (if applicable): CC: ~ Signed [facility] Work Phone: 1(341) 422-193608-20-2025 Consult note Author Issa Looney [facility] Note Date/Time April 08, 2025 7: 12pm [facility] Medical Records Department [address] [place] [address] Consultation - Cardiology 04/08/25 1906 MR#: [id number] Acct: [id number] Name: PEDRO HILLMAN Rep #:[id number] : 1945 80 From: Issa Looney MD PCP: Dr. Tonio Fajardo, DO Status:ADM [facility] Assessment & Plan Assessment/Plan (1) Chronic [...] Coronary Disease-Associated Artery/Lesion type: nativeartery [place] vs. transplanted heart: [place] heart Associated angina: without angina Qualified Code(s): I25.10 - Atherosclerotic heart disease of [place] coronary artery without angina pectoris PLAN: He [...] has documented pauses over 8 seconds present. [facility] Medical History Peripheral arterial disease Other persistent atrial fibrillation New onset atrial flutter COVCOLETTE Wears hearing aid in both ears Former smoker Coronary artery disease Peripheral vascular occlusive disease BPH (benign prostatic hyperplasia) Chronic kidney disease, stage 3 Atherosclerosis of coronary artery of [place] heart without angina pectoris Hyperlipidemia Lower extremity [...] (Auto) 91.4 H, Lymph % (Auto) 3.5L, [place]aden % (Auto) 4.5, Eos % (Auto) 0.0, [...] 91.4 H, Lymph % (Auto) 3.5 L, Bladen % (Auto) 4.5, Eos % (Auto) 0.0, [...] applicable): CC: Dr. Tonio Fajardo DO~ Signed [facility] Work Phone: 1(550) 787-311708-20-2025 Consult note Author Renae Sarabia [facility] Note Date/Time April 08, 2025 6: 51pm [facility] Medical Records Department [address] [place] [address] Consultation - Nephrology 04/06/25 1153 MR#: [id number] Acct: [id number] Name: PEDRO HILLMAN Rep #:[id number] : 1945 80 From: Renae shultz FAMILY NURSE-C PCP: Dr. Tonio Fajardo, DO Status:ADM IN Location: [place] [address] Assessment & Plan Assessment/Plan (1) DARIUSZ (acute [...] kidney from prior ATN after CABG at [place] March2013 (patient required hemodialysis for short period [...] He he was last seen in our [place] office in April 2021. 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 Baseline creatinine April 2021 was around 1.5 to 1.9 mg/dL. Yesterday in the emergency room creatinine 2.57, today his creatinine is 2.52 mg/dL. Patient denies any recent nausea, vomiting or diarrhea. He does state since feeling unwell appetite has been poor. No NSAIDs. Denies any hematuria, dysuria, frequency, nocturia. [facility] Medical History Peripheral arterial disease Other persistent atrial fibrillation New onset atrial flutter COVID Wears hearing aid in both ears Former smoker Coronary artery disease Peripheral vascular occlusive disease BPH (benign prostatic hyperplasia) Chronic kidney disease, stage 3 Atherosclerosis of coronary artery of [place] heart without angina pectoris Hyperlipidemia Lower extremity [...] (Auto) 79.7 H, Lymph % (Auto) 7.3L, Bladen % (Auto) 10.7 H, Eos % (Auto) [...] Clarity Clear, Urine pH 5.0, Ur Specific [place] 1.015, Urine Protein 100 H, Urine Glucose [...] (Auto) 81.9 H, Lymph % (Auto) 6.4L, Bl[place] % (Auto) 10.1 H, Eos % (Auto) [...] process cannot be reliably excluded. Reading Location: [facility] Chest X-Ray 04/06/25 04:13 IMPRESSION: Unchanged bilateral pleural effusions. Unchanged passive atelectatic airspace disease of the lower lobes. Unremarkable median sternotomy wires. Minimal decrease in pulmonary congestion/infiltrates. Enlarged cardiac silhouette. Reading Location: [place] [address] 04/06/25 1226 <Electronically signed by Renae BENSONC> Cosigner Signature (if applicable): 04/08/25 1851 <Electronically signed by Davon Saravia MD> CC: Dr. Tonio Fajardo, DO~ Signed [facility] Work Phone: 1(902) 152-334908-20-2025 Progress note Author Renae Sarabia [facility] Note Date/Time April 08, 2025 6: 51pm [facility] Medical Records Department [address] [place] [address] [place] [address] Progress Note - Nephrology 04/07/25 1046 MR#: [id number] Acct: [id number] Name: PEDRO HILLMAN Rep #:[id number] : 1945 80 From: Renae shultz NP-Estevan PCP: Dr. Tonio Fajardo, DO Status:ADM IN Location: [place] [address] Subjective Subjective Sitting in chair. No overnight [...] 92.8 H, Lymph % (Auto) 3.1 L, Bladen % (Auto) 2.5, Eos % (Auto) 0.0, [...] 12:19 IMPRESSION: NORMAL RENAL ULTRASOUND. Reading Location: [facility] Physical Exam Narrative Alert and oriented x [...] kidney from prior ATN after CABG at [place] March 2013 (patient required hemodialysis for short [...] 2 L yesterday. 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 Renal ultrasound, normal ultrasound, no hydronephrosis. Urine [...] for hospital follow-up after hospital discharge in [place] office. Assessment and plan reviewed with Dr. Saravia. 04/07/25 1103 <Electronically signed by Renae ZHONG> Cosigner Signature (if applicable): 04/08/25 2521 <Electronically signed by Davon Saravia MD> CC: ~ Signed [facility] Work Phone: 1(329) 418-720208-20-2025 Progress note Author Nicola Roman [facility] Note Date/Time April 08, 2025 3: 41pm [facility] Medical Records Department [address] [place] [address] Progress Note - Hospitalist 04/08/25 0757 MR#: [id number] Acct: [id number] Name: PEDRO HILLMAN Rep #:[id number] : 1945 80 From: Nicola Roman MD PCP: Dr. Tonio Fajardo, DO Status:ADM IN Location: [place] [id number]- [id number] Reason for Visit Chief Complaint: SOB, [...] (Auto) 91.4 H, Lymph % (Auto) 3.5L, [place] % (Auto) 4.5, Eos % (Auto) 0.0, [...] with radiation therapy currently followed by [facility] oncology and will start 7. [...] 35 Minutes Charges/Coding Visit Charges Inpatient E&M: 63058 Subs Hosp L2 04/08/25 1113 <Electronically signed [...] Cosigner Signature (if applicable): cc: ~* Signed [facility] Work Phone: 1([phone]) 590-212508-20-2025 Discharge summary Author Nicola Roman [facility] Note Date/Time April 08, 2025 1: 45pm [facility] Medical Records Department [address] [place] [address] Discharge Summary 04/08/25 1114 MR#: [id number] Acct: [id number] Name: PEDRO HILLMAN Nora Rep #:[id number] : 1945 80 From: Nicola Roman MD PCP: Dr. Tonio Fajardo, DO Status:ADM IN [facility] Providers Date of Admission: 04/05/25 Date of Discharge: 04/08/25 Primary Care Physician: Dr. Tonio Fajardo, DO Consultations 04/05/25 20:36 Consult: Nephrology Routine Consulting Provider: Davon Saravia Reason for Consult: CKD; stage IV with Hyperkalemia and AE CHF. EMERGENT Consult: No MD Notified: Yes Date Notified: 04/06/25 Time Notified: 06:58 Method of Notification: Answering Service 04/06/25 07:14 Consult: Onc/Wound/manager transplant Routine Comment: Reason for Consult:: burn R [...] with radiation therapy currently followed by [facility] oncology and will start 7. [...] BID blood thinner 30 days #30 tabs 07/21/25 guaifenesin 1,200 mg tablet, extended release 12 [...] (Auto) 91.4 H, Lymph % (Auto) 3.5L, [place] % (Auto) 4.5, Eos % (Auto) 0.0, [...] Self Care Charges/Coding Visit Charges Inpatient E&M: 48200 Disch Hosp >30min 04/08/25 1345 <Electronically signed by Nicola Roman MD> [facility] Signature (if applicable): CC: Dr. Nicola Roman MD; Dr. Tonio Fajardo DO~ Signed [facility] Work Phone: 1(490) [phone] [facility]08-19-2025 Progress note Author Nicola Roman [facility] Note Date/Time April 07, 2025 11 :26am [facility] Medical Records Department [address] [place] [address] Progress Note - Hospitalist 04/07/25 1113 MR#: [id number] Acct: [id number] Name: PEDRO HILLMAN Rep #:[id number] : 1945 80 From: Nicola Roman MD PCP: Dr. Tonio Fajardo, DO Status:ADM IN Location: [place] [address] Reason for Visit Chief Complaint: SOB, Cough [...] 92.8 H, Lymph % (Auto) 3.1 L, Bladen % (Auto) 2.5, Eos % (Auto) 0.0, [...] 12:19 IMPRESSION: NORMAL RENAL ULTRASOUND. Reading Location: [facility] Physical Exam Narrative S GENERAL: cooperative, dyspneic [...] with radiation therapy currently followed by [facility] oncology and will start 7. [...] 52 Minutes Charges/Coding Visit Charges Inpatient E&M: 46965 Subs Hosp 04/07/25 1126 <Electronically signed by Nicola Roman MD> Cosigner Signature (if applicable): CC: ~ Signed [facility] Work Phone: 1(479) 366-514608-18-2025 Progress note Author Deric Lantigua [facility] Note Date/Time April 06, 2025 4: 53pm [facility] Medical Records Department [address] [place] [address] Progress Note - Hospitalist 04/06/25 0837 MR#: [id number] Acct: [id number] Name: PEDRO HILLMAN Rep #:[id number] : 1945 80 From: Deric Smith PCP: Dr. Tonio Fajardo, DO Status:ADM IN Location: [place] [address] Reason for Visit Chief Complaint: SOB, Cough [...] (Auto) 79.7 H, Lymph % (Auto) 7.3L, [place] % (Auto) 10.7 H, Eos % (Auto) [...] Clarity Clear, Urine pH 5.0, Ur Specific [place] 1.015, Urine Protein 100 H, Urine Glucose [...] (Auto) 81.9 H, Lymph % (Auto) 6.4L, [place] % (Auto) 10.1 H, Eos % (Auto) [...] process cannot be reliably excluded. Reading Location: [facility] Chest X-Ray 04/06/25 04:13 IMPRESSION: Unchanged bilateral pleural effusions. Unchanged passive atelectatic airspace disease of the lower lobes. Unremarkable median sternotomy wires. Minimal decrease in pulmonary congestion/infiltrates. Enlarged cardiac silhouette. [facility] Physical Exam Narrative Seen and examined Patient [...] oxygen requirement with increasing productive cough. Patient's gwfqxfpx-ja-asd increased O2 to 4 L. Noleg swelling. 1. Acute on chronic HFpEF: Patient is being admitted in the PCU. proBNP 4003. Chest x-ray initially shows moderate right and small left pleural effusion and atelectasis and pulmonary edema. Serial troponins 64, 62 and 60 flat and indeterminate and not indicative of ACS.2D echo 03/05 reported EF 55%, PASP 42 mmHg with moderate TR, moderate SD and mild PI. TSH normal Plan: Patient is started on furosemide 40 mg IV twice daily. Heart failure coremeasures including intake and output, fluid restriction less than 1500 mL, dailyweight monitoring, kidney and electrolytes monitoring. 2. Persistent trial flutter/atrial fib: Currently patient in sinus rhythm. On court monitor sinus rhythm 105 bpm. During previous [...] graft in 2010 and chronic venous insufficiency. Overweight; with BMI [...] (Auto) 79.7 H, Lymph % (Auto) 7.3L, Bl[place] % (Auto) 10.7 H, Eos % (Auto) [...] Clarity Clear, Urine pH 5.0, Ur Specific [place] 1.015, Urine Protein 100 H, Urine Glucose [...] (Auto) 81.9 H, Lymph % (Auto) 6.4L, [place] % (Auto) 10.1 H, Eos % (Auto) [...] 140 H Charges/Coding Visit Charges Inpatient E&M: 84230 Subs Hosp L3 04/06/25 1653 <Electronically signed by Deric Lantigua MD> Cosigner Signature (if applicable): CC: ~ Signed [facility] Work Phone: 1(940) 544-474108-18-2025 Radiology Diagnostic study [facility]08-18-2025 History and physical note Author Nicola Madison [facility] Note Date/Time April 06, 2025 6: 23am [facility] Medical Records Department [address] [place] [address] H&P Exam - Hospitalist 04/05/251917 MR#: [id number] Acct: [id number] Name: PEDRO HILLMAN Rep #:[id number] : 1945 80 From: Nicola Levy DO PCP: Dr. Tonio Fajardo, Status:ADM IN Location: [id number]- 1 HPI - General General Date of [...] patient still FULL CODE who presents to [facility] ER complaining of shortness of breath, cough [...] status expected to extend beyond 2 midnights. [facility] Medical History Peripheral arterial disease Other persistent atrial fibrillation New onset atrial flutter COVID Wears hearing aid in both ears Former smoker Coronary artery disease Peripheral vascular occlusive disease BPH (benign prostatic hyperplasia) Chronic kidney disease, stage 3 Atherosclerosis of coronary artery of [place] heart without angina pectoris Hyperlipidemia Lower extremity [...] (Auto) 79.7 H, Lymph % (Auto) 7.3L, [place] % (Auto) 10.7 H, Eos % (Auto) [...] process cannot be reliably excluded. Reading Location: [facility] Assessment & Plan Assessment/Plan (1) Acute [...] 75 minutes. Charges/Coding Visit Charges Inpatient E&M: 51345 Init Hosp L3 04/06/25 0623 <Electronically signed by Nicola Lindsey DO> Cosigner Signature (if applicable): CC: Dr. Nicola Lindsey DO; Dr. Tonio Fajardo DO~ Signed [facility] Work Phone: 1([phone]) 437-437108-18-2025 Radiology Diagnostic study [facility]08-18-2025 Discharge summary Author Ld Hayes [facility] Note Date/Time April 06, 2025 12 :36am [facility] Medical Records Department [address] [place] [address] Emergency Department Summary 04/05/25 MR#: [id number] Acct: [id number] Name: PEDRO HILLMAN Rep #:[id number] : 1945 80 From: Ld Quintero PCP: Dr. Tonio Fajardo DO Status:ADM IN Location: [place] [address] HPI History of Present Illness Chief Complaint: Hypotension Informant: patient and family Narrative Narrative: Presents by EMS from home daughter in law present. Increasing productive cough. Chronic oxygenation of 3 L for COPD history remote history of lung cancer. Enguivev-ox-oir reports that increase his oxygen to 4 [...] CKD history. He is followed by the [place] [facility]. Reports he was admitted 3 weeks ago approximately had his metoprolol held and placed on diltiazem. Prior similar symptoms: Yes PFSH [facility] Medical History Peripheral arterial disease Other persistent atrial fibrillation New onset atrial flutter COVID Wears hearing aid in both ears Former smoker Coronary artery disease Peripheral vascular occlusive disease BPH (benign prostatic hyperplasia) Chronic kidney disease, stage 3 Atherosclerosis of coronary artery of [place] heart without angina pectoris Hyperlipidemia Lower extremity [...] clinician: Hospitalist This note was generated with [employer] dictation software. It may contain incorrectwords, spelling, [...] 79.7 H Lymph % (Auto) 7.3 L [place] % (Auto) 10.7 H Eos % (Auto) [...] process cannot be reliably excluded. Reading Location: [id number] Discharge Plan Dx/Rx/DC Orders Clinical Impression: CHF exacerbation, Chronic kidney disease, stage 3, Atrial flutter, Chronic anticoagulation, Hyperkalemia Disposition Disposition: Acute Care Hospital [facility] Discharge Date/Time: 04/05/25 20:38 What to do if you have Problems For any increased pain, shortness of breath, bleeding, nausea or vomiting, chestpain, or any unexpected problems, contact your Primary Care Provider. Call [facility] ([phone]) or report to the closest Emergency Room. Call 911 if necessary. 04/06/25 0036 <Electronically signed by Ld Quintero> Cosigner Signature (if applicable): CC: Dr. Tonio Fajardo DO ~ Signed [facility] Work Phone: 1(670) [phone] Radiology Diagnostic study [facility]07-27-2025 Discharge summary [facility] Medical Records Department [address] [place] [address] Emergency Department Summary 03/15/25 MR#: [id number] Acct: [id number] Name: PEDRO HILLMAN Rep #:[id number] : 1945 80 From: Alex Matias MD [...] similar symptoms: Yes Recent Illness/Hospitalization: Yes (CHF) [facility] Medical History Other persistent atrial fibrillation New onset atrial flutter COVID Wears hearing aid in both ears Former smoker Coronary artery disease Peripheral vascular occlusive disease BPH (benign prostatic hyperplasia) Chronic kidney disease, stage 3 Atherosclerosis of coronary artery of [place] heart without angina pectoris Hyperlipidemia Lower extremity [...] your Primary Care Provider. Call [facility] ([phone]) or report tothe closest Emergency Room. Call 911 if necessary. 03/15/25 1822 Cosigner Signature (if applicable): CC: Dr. Tonio Fajardo, DO ~ Signed [facility]07-27-2025 Discharge summary Author Alex Matias [facility] Note Date/Time March 15, 2025 6:22 pm [facility] Medical Records Department [address] [facility] [place] [address] Emergency Department Summary 03/15/25 MR#: [id number] Acct: [id number] Name: PEDRO HILLMAN Rep #:[id number] : 1945 80 From: Alex Matias MD [...] similar symptoms: Yes Recent Illness/Hospitalization: Yes (CHF) [facility] Medical History Other persistent atrial fibrillation New onset atrial flutter COVID Wears hearing aid in both ears Former smoker Coronary artery disease Peripheral vascular occlusive disease BPH (benign prostatic hyperplasia) Chronic kidney disease, stage 3 Atherosclerosis of coronary artery of [place] heart without angina pectoris Hyperlipidemia Lower extremity [...] your Primary Care Provider. Call [facility] ([phone]) or report to the closest Emergency Room. Call 911 if necessary. 03/15/25 1822 <Electronically signed by Alex Matias MD> Cosigner Signature (if applicable): CC: Dr. Tonio Fajardo, ~ Signed [facility] Work Phone: 1(757) 335-929007-27-2025 Hospital Discharge instructionsAdditional Instructions 1. Hold the next 4 doses of apixaban, Eliquis. 2. Take amoxicillin as prescribed until gone 3. Contact Dr. Vasquez's office in the morning to be seen later this week to have the pack removed.[facility] Work Phone: 1(443) 298-413807-21-2025 Consult note [facility] Medical Records Department [address] [place] [address] Counseling Note - Pharmacy 03/09/25 7374 MR#: [id number] Acct: [id number] Name: PEDRO HILLMAN Rep #:[id number] : 1945 80 From: Mala Sterling PCP: Dr. Tonio Fajardo, Status:ADM IN Location: [facility] [id number] 1 Pharmacy [facility] Counsel[facility] Pharmacy Service has performed discharge [...] Signature (if applicable): Date CC: ~ Signed [facility]07-21-2025 Discharge summary Author Deric Lantigua [facility] Note Date/Time March 09, 2025 12:5 2pm [facility] Medical Records Department [address] [place] [address] Discharge Summary 03/09/25 1251 MR#: [id number] Acct: [id number] Name: PEDRO HILLMAN Rep #:[id number] : 1945 80 From: Deric Smith PCP: Dr. Tonio Fajardo, Status:ADM IN Location: [address] 1 Providers Date of Admission: 03/04/25 Date of Discharge: 03/09/25 Primary Care Physician: Dr. Tonio Fajardo, Consultations 03/04/25 21:21 Consult: Cardiology Routine Consulting Provider: [facility] Reason for Consult: AE CHF, a [...] Code(s): I25.10 - Atherosclerotic heart disease of [place] coronary artery without angina pectoris Qualifiers: Coronary Disease-Associated Artery/Lesion type: [place] artery [place] vs. transplanted heart: [place] heart Associated angina: without angina Qualified Code(s): I25.10 - Atherosclerotic heart disease of [place] coronary artery without angina pectoris (3) Chronic anticoagulation: Status: Acute Code(s): Z79.01 - [facility] (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 of anticoagulants Plan 80-year-old gentleman [...] no significant delta change. ACS ruled out. Mask Inspector is consulted. Repeat proBNP is elevated but it does not reflect treatment response as it should not be ordered for that. Clinically patient is feeling better with improvement in shortness of breath. 2D echo 03/05 reported EF 55%, PASP 42 mmHg with moderate TR, moderate SD and mild PI. 03/06: Furosemide changed to [...] conduction. Later on irregular variable conduction on court monitor 03/06: Discussed with the french drawer. Metoprolol increased to 25 mg twice daily, [...] pressure in the 90s. Discussed with the french drawer. Advised to discontinue to discontinue metoprolol and [...] the CODE STATUS. 03/09: Discussed with the french drawer.Patient heart rate controlled in 70s. Yesterday rate was in 80s. Patient tolerated Cardizem 30 mg every 8 hourly therefore discharged on Cardizem CD 120 mg. I called patient's dalpvvee-vl-emv and explained the medication. Mask Inspector felt probably does not need even pacemaker. [...] at the right lung base. Reading Location: [facility]1 Echocardiogram 03/04/25 20:08 Interpretation Summary Moderate [...] in right lung base aeration. Reading Location: [facility]- Medications at Discharge Home Medications insulin glargine [...] 03/05/25 14:17 SB (Rec: 03/05/25 14:17 SB [id number]) Nutrition Malnutrition Evidence of Yes Malnutrition Exists [...] (Auto) 72.6 H, Lymph % (Auto) 9.7L, Bladen % (Auto) 12.1 H, Eos % (Auto) [...] Self Care Charges/Coding Visit Charges Inpatient E&M: 18248 Disch Hosp >30min 03/09/25 1252 <Electronically signed by Deric Lantigua MD> Cosigner Signature (if applicable): CC: Dr. Tonio Fajardo DO; Dr. Willian Glaser MD; Dr. Deric Lantigua MD~ Signed [facility] Work Phone: 1(140) 780-366007-21-2025 Discharge summary Author Deric Lantigua [facility] Note Date/Time March 09, 2025 12:4 4pm [facility] Medical Records Department [facility] [place] [address] Instructions for Home/Discharge Instructions 03/09/25 1031 MR#: [id number] Acct: [id number] Name: PEDRO HILLMAN Rep #:[id number] : 1945 80 From: Deric Smith PCP: [...] by Deric Lantigua MD>Deric Lantigua MD CC: TATIANNA-Estevan Rodriguez; Dr. Susan Hawley MD; Dr. Paris Tiwari MD; Dr. Marjorie Green MD; Dr. Nicolette Mcdonald MD; Dr. Martin Vivas MD; Dr. Jose Lai MD; Dr. Issa Looney MD; Dr. Nicola Lindsey DO; Dr. Chago Miller MD; Dr. Tonio Fajardo DO; Dr. Willian Glaser MD; Dr. Orly Mitchell MD; Dr. Santos Hsu MD; Dr. Reinaldo Mclain MD; RICKIE Kumari; RICKIE Cummins ~ Signed [facility] Work Phone: [phone]) [phone] Hospital Discharge instructionsAdditional Instructions Discharge with Claudio catheter. Date [facility]: [facility] Phone: 1(917) 596-250807-21-2025 Discharge summary [facility] Medical Records Department [address] [place] [address] Discharge Summary 03/09/25 1251 MR#: [id number] Acct: [id number] Name: PEDRO HILLMAN Rep #:[id number] : 1945 80 From: Deric Smith PCP: Dr. Tonio Fajardo, Status:ADM IN Location: [place] [address] Providers Date of Admission: 03/04/25 Date of Discharge: 03/09/25 Primary Care Physician: Dr. 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 ACS ruled out. Mask Inspector is consulted. Repeat proBNP is elevated but it does not reflect treatment response as it should not be ordered for that. Clinically patient is feeling better with improvement in shortness of breath. 2D echo 03/05 reported EF 55%, PASP 42 mmHg with moderate TR, moderate SD and mild PI. 03/06: Furosemide changed to [...] conduction. Later on irregular variable conduction on court monitor 03/06: Discussed with the french drawer. Metoprolol increased to 25 mg twice daily, Cardizem 60 mg P2rktyba. If heart rate controlled, will switch to [...] pressure in the 90s. Discussed with the french drawer. Advised to discontinue to discontinue metoprolol and [...] the CODE STATUS. 03/09: Discussed with the french drawer.Patient heart rate controlled in 70s. Yesterday rate was in 80s. Patient tolerated Cardizem 30 mg every 8 hourly therefore discharged on Cardizem CD 120 mg. I called patient's uxlopwsa-fg-rky and explained the medication. Mask Inspector felt probably does not need even pacemaker. [...] right lung base. Reading Location: [facility] Echocardiogram 03/04/25 20:08 Interpretation Summary Moderate concentric [...] in right lung base aeration. Reading Location: [facility]-2 Medications at Discharge Home Medications insulin glargine [...] 03/05/25 14:17 SB (Rec: 03/05/25 14:17 SB [id number]) Nutrition Malnutrition Evidence of Yes Malnutrition Exists [...] (Auto) 72.6 H, Lymph % (Auto) 9.7L, Bladen % (Auto) 12.1 H, Eos % (Auto) [...] Self Care Charges/Coding Visit Charges Inpatient E&M: 93913 Disch Hosp >30min 03/09/25 1252 Cosigner Signature (if applicable): CC: Dr. Tonio Fajardo DO; Dr. Willian Glaser MD; Dr. Deric Lantigua MD~ Signed [facility]07[facility]21[facility] Discharge summary [facility] Medical Records Department [address] [place] [address] Instructions for Home/Discharge Instructions 03/09/25 1031 MR#: [id number] Acct: [id number] Name: PEDRO HILLMAN Rep #:[id number] : 1945 80 From: Deric Smith PCP: [...] Self Care 03/09/25 1244Pmaribel Lantigua MD CC: FAMILY NURSE-Estevan Rodriguez; Dr. Susan Hawley MD; Dr. Paris Tiwari MD; Dr. Marjorie Green MD; Dr. Nicolette Mcdonald MD; Dr. Martin Vivas MD; Dr. Jose Lai MD; Dr. Issa Looney MD; Dr. Nicola Lindsey DO; Dr. Chago Miller MD; Dr. Tonio Fajardo DO; Dr. Willian Glaser MD; Dr. Orly Mitchell MD;Dr. Santos Hsu MD; Dr. Reinaldo Mclain MD; RICKIE Kumari; RICKIE Cummins ~ Signed [facility]07-21-2025 Progress note Author Willian Glaser [facility] Note Date/Time March 09, 2025 9:53 am [facility] Medical Records Department [address] [place] [address] Progress Note - Cardiology 03/09/25 0943 MR#: [id number] Acct: [id number] Name: PEDRO HILLMAN Rep #:[id number] : 1945 80 From: Willian Glaser MD PCP: Dr. Tonio Fajardo DO Status:ADM IN Location: [place] [address]- 1 Subjective Subjective Patient evaluated in a [...] (Auto) 72.6 H, Lymph % (Auto) 9.7L, Bladen % (Auto) 12.1 H, Eos % (Auto) [...] 72.6 H, Lymph % (Auto) 9.7 L, Bladen % (Auto) 12.1 H, Eos % (Auto) [...] Coronary Disease-Associated Artery/Lesion type: nativeartery [place] vs. 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 The patient should be reevaluated in 2 to 4 weeks in the [facility] with advanced practitioner. Given the patient's recovery [...] At discharge patient should follow-up with the [facility] advanced practitioner in 2 to 3 weeks. 4. If further assistance is needed please reconsult the [facility]. Charges/Coding Visit Charges Inpatient E&M: 07719 Subs Hosp L3 03/09/25 0953 <Electronically signed by Willian Glaser MD> Cosigner Signature (if applicable): CC: ~ Signed [facility] Work Phone: 1(247) 737-639507-21-2025 Progress note [facility] Medical Records Department [address] [place] [address] Progress Note - Cardiology 03/09/25 0943 MR#: [id number] Acct: [id number] Name: PEDRO HILLMAN Rep #:[id number] : 1945 80 From: Willian Glaser MD PCP: Dr. Tonio Fajardo, DO Status:ADM IN Location: [place] [address] Subjective Subjective Patient evaluated in a seated [...] (Auto) 72.6 H, Lymph % (Auto) 9.7L, Bladen % (Auto) 12.1 H, Eos % (Auto) [...] 72.6 H, Lymph % (Auto) 9.7 L, Bladen % (Auto) 12.1 H, Eos % (Auto) [...] Coronary Disease-Associated Artery/Lesion type: nativeartery [place] vs. 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 The patient should be reevaluated in 2 to 4 weeks in the [facility] with advanced practitioner. Given the patient's recovery [...] At discharge patient should follow-up with the [facility] advanced practitioner in 2 to3 weeks. 4. If further assistance is needed please reconsult the [facility]. Charges/Coding Visit Charges Inpatient E&M: 37576 Subs Hosp L3 03/09/25 0953 Cosigner Signature (if applicable): CC: ~ Signed [facility]07-20-2025 Progress note Author Deric Lantigua [facility] Note Date/Time March 08, 2025 1:34 pm [facility] Medical Records Department [address] [place] [address] Progress Note - Hospitalist 03/08/25 0844 MR#: [id number] Acct: [id number] Name: PEDRO HILLMAN Rep #:[id number] : 1945 80 From: Deric Smith PCP: Dr. Tonio Fajardo, DO Status:ADM IN Location: [place] [address] Reason for Visit Chief Complaint: SOB. 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 ACS ruled out. Mask Inspector is consulted. Repeat proBNP is elevated but it does not reflect treatment response as it should not be ordered for that. Clinically patient is feeling better with improvement in shortness of breath. 2D echo 03/05 reported EF 55%, PASP 42 mmHg with moderate TR, moderate SD and mild PI. 03/06: Furosemide changed to [...] conduction. Later on irregular variable conduction on court monitor 03/06: Discussed with the french drawer. Metoprolol increased to 25 mg twice daily, [...] pressure in the 90s. Discussed with the french drawer. Advised to discontinue to discontinue metoprolol and [...] at the right lung base. Reading Location: [facility]1 Echocardiogram 03/04/25 20:08 Interpretation Summary Moderate [...] in right lung base aeration. Reading Location: [place] [address] Charges/Coding Addendum Addendum: Total time of the visit including total time spent in counseling or coordinationof care, (more than 50% of the total time, spent in obtaining medical information from nurses and other ancillary care providers ,explaining to the patient about labs, imaging, diagnosis and management of active complex medical conditions), multiple active cardiac issues, urinary retention discussion with french drawer and clinical update given to patient's hzbllzoh-ba-zex, review of labs and imaging is 35 minutes. Visit Charges Inpatient E&M: 62101 Subs Hosp L3 03/08/25 1040 <Electronically signed by Deric Lantigua MD> Cosigner Signature (if applicable): CC: ~ Signed ADDENDUM by Dr. Deric Lantigua MD on 03/08/25 at 1334 Addendum The patient's son and iacfrmhd-jc-dpo came to visit him. They decided patient to be DNR CC arrest with no intubation CODE STATUS changed. Living will/advanced directive/end of life care: Patient does not have living will or advanced directive. He is next of kin is his son and bqivzdii-ju-rnc. After discussion of benefits/risks procedures involved with full code, DNR CC arrest and DNR CC, the patient and his bysxqgkf-vt-ffz he opted for DNR CC arrest with no intubation. Patient also said that he does not want pacemaker but his zalbwhkk-uk-zxr and son will discuss with him Patient does want artificial life support including intubation, tube feed, ventilator and/chest compression, central venous catheter, vasopressor and DC shock if needed Total time spent in ijbp-wi-ykqg encounter in discussion of advanced directive 17 minutes. 03/08/25 1334<Electronically signed by Deric Lantigua MD> Cosigner Signature (if applicable): cc: ~* Signed [facility] Work Phone: 1(191) 956-619407-20-2025 Progress note [facility] Medical Records Department [address] [place] [address] Progress Note - Hospitalist 03/08/25 0844 MR#: [id number] Acct: [id number] Name: PEDRO HILLMAN Rep #:[id number] : 1945 80 From: Deric Smith PCP: Dr. Tonio Fajardo, Status:ADM IN Location: [place] [address] Reason for Visit Chief Complaint: SOB. 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 ACS ruled out. Mask Inspector is consulted. Repeat proBNP is elevated but it does not reflect treatment response as it should not be ordered for that. Clinically patient is feeling better with improvement in shortness of breath. 2D echo 03/05 reported EF 55%, PASP 42 mmHg with moderate TR, moderate SD and mild PI. 03/06: Furosemide changed to [...] conduction. Later on irregular variable conduction on court monitor 03/06: Discussed with the french drawer. Metoprolol increased to 25 mg twice daily, Cardizem 60 mg [id number]. If heart rate controlled, will switch to [...] pressure in the 90s. Discussed with the french drawer. Advised to discontinue to discontinue metoprolol and [...] at the right lung base. Reading Location: [facility] Echocardiogram 03/04/25 20:08 Interpretation Summary Moderate [...] in right lung base aeration. Reading Location: [place] [address] Charges/Coding Addendum Addendum: Total time of the visit including total time spent in counseling or coordinationof care, (more than50% of the total time, spent in obtaining medical information from nurses and other ancillary care providers ,explaining to the patient about labs, imaging, diagnosis and management of active complexmedical conditions), multiple active cardiac issues, urinary retention discussion with cardiologistand clinical update given to patient's cbblkrky-sv-zbk, review of labs and imaging is 35 minutes. Visit Charges Inpatient E&M: 26545 Subs Hosp 03/08/25 1040 Cosigner Signature (if applicable): CC: ~ Signed ADDENDUM by Dr. Deric Lantigua MD on 03/08/25 at 1334 Addendum The patient's son and vndpqqzn-rc-wgl came to visit him. They decided patient to be DNR CC arrest with no intubation CODE STATUS changed. Living will/advanced directive/end of life care: Patient does not have living will or advanced directive. He is next of kin is his son and brbltjpo-ya-wom. After discussion of benefits/risks procedures involved with full code, DNR CC arrest and DNR CC, the patient and his walolmzj-wk-uud he opted for DNR CC arrest with no intubation. Patient also said that he does not want pacemaker but his oqcjppsd-wi-pzk and son will discuss with him Patient does want artificial life support including intubation, tube feed, ventilator and/chest compression, central venous catheter, vasopressor and DC shock if needed Total time spent in egyx-mt-eene encounter in discussion of advanced directive 17 minutes. 03/08/25 1334 Cosigner Signature (if applicable): cc: ~* Signed [facility]07-20-2025 Progress note Author Marjorie Green [facility] Note Date/Time March 08, 2025 8:51 am [facility] Medical Records Department [address] [place] [address] Progress Note - Cardiology 03/08/2548 MR#: [id number] Acct: [id number] Name: PEDRO HILLMAN Rep #:[id number] : 1945 80 From: Marjorie Green MD PCP: Dr. Tonio Fajardo, DO Status:ADM IN Location: [place] [address] Subjective Subjective Denies any complaints. Became bradycardic [...] Cosigner Signature (if applicable): CC: ~ Signed [facility] Work Phone: 1([phone]) 984-812707-20-2025 Progress note [facility] Medical Records Department [address] [place] [address] Progress Note - Cardiology 03/08/25 0848 MR#: [id number] Acct: [id number] Name: PEDRO HILLMAN Rep #:[id number] : 1945 80 From: Marjorie Green MD PCP: Dr. Tonio Fajardo, DO Status:ADM IN Location: [place] [address] Subjective Subjective Denies any complaints. Became bradycardic [...] Cosigner Signature (if applicable): CC: ~ Signed [facility]07-19-2025 Progress note Author Deric Lantigua [facility] Note Date/Time March 07, 2025 1:51 pm [facility] Medical Records Department [address] [place] [address] Progress Note - Hospitalist 03/07/25 1342 MR#: [id number] Acct: [id number] Name: PEDRO HILLMAN Rep #:[id number] : 1945 80 From: Deric Smith PCP: Dr. 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 03/05: Heart failure core measures including intake and output, fluid restrictionless than 1500 mL, daily weight monitoring, kidney and electrolytes monitoring. On furosemide 40 mg twice daily. Serial troponins 44, 45 and 42 therefore no significant delta change. ACS ruled out. Mask Inspector is consulted. Repeat proBNP is elevated but it does not reflect treatment response as it should not be ordered for that. Clinically patient is feeling better with improvement in shortness of breath. 2D echo 03/05 reported EF 55%, PASP 42 mmHg with moderate TR, moderate SD and mild PI. 03/06: Furosemide changed to [...] conduction. Later on irregular variable conduction on court monitor 03/06: Discussed with the french drawer. Metoprolol increased to 25 mg twice daily, [...] at the right lung base. Reading Location: [facility] Echocardiogram 03/04/25 20:08 Interpretation Summary Moderate [...] in right lung base aeration. Reading Location: [place] [address] Charges/Coding Visit Charges Inpatient E&M: 90871 Subs Hosp L2 03/07/25 1354 <Electronically signed by Deric Lantigua MD> Cosigner Signature (if applicable): CC: ~ Signed [facility] Work Phone: 1(927) 394-769607-19-2025 Progress note [facility] Medical Records Department [address] [place] [address] Progress Note - Hospitalist 03/07/25 1342 MR#: [id number] Acct: [id number] Name: PEDRO HILLMAN Rep #:[id number] : 1945 80 From: Deric Smith PCP: Dr. Tonio Fajardo, DO Status:ADM IN Location: [place] [address] Reason for Visit Chief Complaint: SOB. 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 ACS ruled out. Mask Inspector is consulted. Repeat proBNP is elevated but it does not reflect treatment response as it should not be ordered for that. Clinically patient is feeling better with improvement in shortness of breath. 2D echo 03/05 reported EF 55%, PASP 42 mmHg with moderate TR, moderate SD and mild PI. 03/06: Furosemide changed to [...] conduction. Later on irregular variable conduction on court monitor 03/06: Discussed with the french drawer. Metoprolol increased to 25 mg twice daily, Cardizem 60 mg [id number]. If heart rate controlled, will switch to [...] at the right lung base. Reading Location: [facility] Echocardiogram 03/04/25 20:08 Interpretation Summary Moderate [...] Referring Physician: SCOTTY ELIZALDE Performed By: Haley Steevns and Student Chest X-Ray 03/05/25 04:30 IMPRESSION: Small interval improvement in right lung base aeration. Reading Location: [place] [address] Charges/Coding Visit Charges Inpatient E&M: 27976 Subs Hosp L2 03/07/25 1351 Cosigner Signature (if applicable): CC: ~ Signed [facility]07-18-2025 Progress note Author Deric Lantigua [facility] Note Date/Time March 06, 2025 3:46 pm [facility] Medical Records Department [address] [place] [address] Progress Note - Hospitalist 03/06/25 1540 MR#: [id number] Acct: [id number] Name: PEDRO HILLMAN Nora Rep #:[id number] : 1945 80 From: Deric Smith PCP: Dr. Tonio Fajardo, DO Status:ADM IN Location: [place] [address] Reason for Visit Chief Complaint: SOB. Objective [...] 03/05/25 14:17 SB (Rec: 03/05/25 14:17 SB [id number]) Nutrition Malnutrition Evidence of Yes Malnutrition Exists [...] is improved. Still in A-fib/flutter with heart [id number]. Shortness of breath is better. 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 ACS ruled out. Mask Inspector is consulted. Repeat proBNP is elevated but it does not reflect treatment response as it should not be ordered for that. Clinically patient is feeling better with improvement in shortness of breath. 2D echo 03/05 reported EF 55%, PASP 42 mmHg with moderate TR, moderate SD and mild PI. 03/06: Furosemide changed to [...] conduction. Later on irregular variable conduction on court monitor 03/06: Discussed with the french drawer. Metoprolol increased to 25 mg twice daily, [...] at the right lung base. Reading Location: [facility] Echocardiogram 03/04/25 20:08 Interpretation Summary Moderate [...] in right lung base aeration. Reading Location: [place] [address] Charges/Coding Visit Charges Inpatient E&M: 06948 Subs Hosp L2 03/06/25 1546 <Electronically signed by Deric Lantigua MD> Cosigner Signature (if applicable): CC: ~ Signed [facility] Work Phone: 1(889) 488-486607-18-2025 Progress note [facility] Medical Records Department [address] [place] [address] Progress Note - Hospitalist 03/06/25 1540 MR#: [id number] Acct: [id number] Name: PEDRO HILLMAN Rep #:[id number] : 1945 80 From: Deric Smith PCP: Dr. Tonio Fajardo, DO Status:ADM IN Location: [place] [address] Reason for Visit Chief Complaint: SOB. Objective [...] 03/05/25 14:17 SB (Rec: 03/05/25 14:17 SB [id number]) Nutrition Malnutrition Evidence of Yes Malnutrition Exists [...] is improved. Still in A-fib/flutter with heart cest069q. Shortness of breath is better. 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 ACS ruled out. Mask Inspector is consulted. Repeat proBNP is elevated but it does not reflect treatment response as it should not be ordered for that. Clinically patient is feeling better with improvement in shortness of breath. 2D echo 03/05 reported EF 55%, PASP 42 mmHg with moderate TR, moderate SD and mild PI. 03/06: Furosemide changed to [...] conduction. Later on irregular variable conduction on court monitor 03/06: Discussed with the french drawer. Metoprolol increased to 25 mg twice daily, Cardizem 60 mg [id number]. If heart rate controlled, will switch to [...] at the right lung base. Reading Location: [facility] Echocardiogram 03/04/25 20:08 Interpretation Summary Moderate [...] in right lung base aeration. Reading Location: [place] [address] Charges/Coding Visit Charges Inpatient E&M: 65900 Subs Hosp L2 03/06/25 1546 Cosigner Signature (if applicable): CC: ~ Signed [facility]07-18-2025 Consult note Author Marjorie Green [facility] Note Date/Time March 06, 2025 9:33 am [facility] Medical Records Department [address] [place] [address] Consultation - Cardiology 03/06/25925 MR#: [id number] Acct: [id number] Name: PEDRO HILLMAN Rep #:[id number] : 1945 80 From: Marjorie Green MD PCP: Dr. Tonio Fajardo, DO Status:ADM IN Location: [facility] [id number]- 1 Assessment & Plan Assessment/Plan (1) Atrial [...] shortness of breath is much improved. [facility] Medical History (Updated 03/06/25 @ 09:[address] Marjorie Green MD) Other persistent atrial fibrillation New onset atrial flutter COVID Wears hearing aid in both ears Former smoker Coronary artery disease Peripheral vascular occlusive disease BPH (benign prostatic hyperplasia) Chronic kidney disease, stage 3 Atherosclerosis of coronary artery of ewiiaapaayp heart without angina pectoris Hyperlipidemia Lower extremity [...] applicable): CC: Dr. Tonio Fajardo, ~ Signed [facility] Work Phone: 1(635) 793-384407-18-2025 Consult note [facility] Medical Records Department [address] [place] [address] Consultation - Cardiology 03/06/25925 MR#: [id number] Acct: [id number] Name: PEDRO HILLMAN Rep #:[id number] : 1945 80 From: Marjorie Green MD PCP: Dr. Tonio Fajardo, Status:ADM IN Location: [place] [address] Assessment & Plan Assessment/Plan (1) Atrial flutter [...] shortness of breath is much improved. [facility] Medical History (Updated 03/06/25 @ 09:[address] Marjorie Green MD) Other persistent atrial fibrillation New onset atrial flutter COVID Wears hearing aid in both ears Former smoker Coronary artery disease Peripheral vascular occlusive disease BPH (benign prostatic hyperplasia) Chronic kidney disease, stage 3 Atherosclerosis of coronary artery of ewiiaapaayp heart without angina pectoris Hyperlipidemia Lower extremity [...] applicable): CC: Dr. Tonio Fajardo, ~ Signed [facility]07-17-2025 Progress note Author Deric Lantigua [facility] Note Date/Time March 05, 2025 3:56 pm [facility] Medical Records Department [address] [place] [address] Progress Note - Hospitalist 03/05/25 0719 MR#: [id number] Acct: [id number] Name: PEDRO HILLMAN Rep #:[id number] : 1945 80 From: Deric Smith PCP: Dr. Tonio Fajardo DO Status:ADM IN Location: [place] [id number]- 1 Reason for Visit Chief Complaint: SOB. [...] 78.1 H, Lymph % (Auto) 10.1 L, Bladen % (Auto) 9.1, Eos % (Auto) 1.6, [...] Clarity Cloudy, Urine pH 6.5, Ur Specific [place] 1.010, Urine Protein 100 H, Urine Glucose [...] (Auto) 76.4 H, Lymph % (Auto) 9.5L, Bladen % (Auto) 11.4 H, Eos % (Auto) [...] at the right lung base. Reading Location: [facility] Chest X-Ray 03/05/25 04:30 IMPRESSION: Small interval improvement in right lung base aeration. Reading Location: [place] [address] Rhythm Strip Rhythm Strip: Atrial flutter Rate: [...] hematuria: (8) Atherosclerosis of coronary artery of ewiiaapaayp heart without angina pectoris: QUALIFIERS: Coronary Disease-Associated Artery/Lesion type: nativeartery Qualified Code(s): I25.10 - Atherosclerotic heart disease of ewiiaapaayp coronary artery without angina pectoris (9) Overweight [...] no significant delta change. ACS ruled out. Mask Inspector is consulted. Repeat proBNP is elevated but it does not reflect treatment response as it should not be ordered for that. Clinically patient is feeling better with improvement in shortness of breath. 2D echo 03/05 reported EF 55%, PASP 42 mmHg with moderate TR, moderate SD and mild PI. 2. EKG evidence of Atrial Flutter; with Rapid Ventricular Response of ~117 bpm even after being treated with IV Cardizem bolus probably precipitating CHF exacerbation: Patient already on apixaban patient had digoxin. TSH 3.7 normal. Twelve-lead EKG individually reviewed and shows atrial flutter 2 is to 1 conduction. Later on irregular variable conduction on court monitor 3. CKD; stage IIIb with hyperkalemia, [...] Clarity Cloudy, Urine pH 6.5, Ur Specific [place] 1.010, Urine Protein 100 H, Urine Glucose [...] (Auto) 76.4 H, Lymph % (Auto) 9.5L, Bladen % (Auto) 11.4 H, Eos % (Auto) [...] at the right lung base. Reading Location: [facility] Echocardiogram 03/04/25 20:08 Interpretation Summary Moderate [...] in right lung base aeration. Reading Location: [place] [address] Charges/Coding Addendum Addendum: Total time of the [...] imagingis 35 minutes. Visit Charges Inpatient E&M: 47838 Subs Hosp L3 03/05/25 5750 <Electronically signed by Deric Lantigua MD> Cosigner Signature (if applicable): CC: ~ Signed [facility] Work Phone: 1(198) 335-671107-17-2025 Progress note [facility] Medical Records Department [address] [place] [address] Progress Note - Hospitalist 03/05/25 0719 MR#: [id number] Acct: [id number] Name: PEDRO HILLMAN Rep #:[id number] : 1945 80 From: Deric Smith PCP: Dr. Tonio Fajardo, DO Status:ADM IN Location: [place] [address] Reason for Visit Chief Complaint: SOB. Objective [...] 78.1 H, Lymph % (Auto) 10.1 L, Bladen % (Auto) 9.1, Eos % (Auto) 1.6, [...] Clarity Cloudy, Urine pH 6.5, Ur Specific [place] 1.010, Urine Protein 100 H, Urine Glucose [...] (Auto) 76.4 H, Lymph % (Auto) 9.5L, Bladen % (Auto) 11.4 H, Eos % (Auto) [...] the right lung base. Reading Location: [facility] Chest X-Ray 03/05/25 04:30 IMPRESSION: Small interval improvement in right lung base aeration. Reading Location: [place] [address] Rhythm Strip Rhythm Strip: Atrial flutter Rate: [...] hematuria: (8) Atherosclerosis of coronary artery of ewiiaapaayp heart without angina pectoris: QUALIFIERS: Coronary Disease-Associated Artery/Lesion type: nativeartery Qualified Code(s): I25.10 - Atherosclerotic heart disease of ewiiaapaayp coronary artery without angina pectoris (9) Overweight [...] pleural effusion and bibasilar [facility] Maintain metoprolol and lisinopril as before. 03/04: Heart failure core measures including intake and output, fluid restrictionless than 1500 mL, daily weight monitoring, kidney and electrolytes monitoring. On furosemide 40 mg twice daily. Serialtroponins 44, 45 and 42 therefore no significant delta change. ACS ruled out. Mask Inspector is consulted. Repeat proBNP is elevated but it does not reflect treatment response as it should not be ordered for that. Clinically patient is feeling better with improvement in shortness of breath. 2D echo 03/05 reported EF 55%, PASP 42 mmHg with moderate TR, moderate SD and mild PI. 2. EKG evidence of Atrial Flutter; with Rapid Ventricular Response of ~117 bpm even after being treated with IV Cardizem bolus probably precipitating CHF exacerbation: Patient already on apixaban patient had digoxin. TSH 3.7 normal. Twelve-lead EKG individually reviewed and shows atrial flutter 2 is to 1 conduction. Later on irregular variable conduction on court monitor 3. CKD; stage IIIb with hyperkalemia, [...] Clarity Cloudy, Urine pH 6.5, Ur Specific [place] 1.010, Urine Protein 100 H, Urine Glucose [...] (Auto) 76.4 H, Lymph % (Auto) 9.5L, Bladen % (Auto) 11.4 H, Eos % (Auto) [...] at the right lung base. Reading Location: [facility] Echocardiogram 03/04/25 20:08 Interpretation Summary Moderate [...] in right lung base aeration. Reading Location: [place] [address] Charges/Coding Addendum Addendum: Total time of the [...] imagingis 35 minutes. Visit Charges Inpatient E&M: 79140 Subs Hosp 03/05/25 1558 Cosigner Signature (if applicable): CC: ~ Signed [facility]07-17-2025 History and physical note Author Nicola Madison [facility] Note Date/Time March 05, 2025 6:22 am [facility] Medical Records Department [address] [place] [address] H&P Exam - Hospitalist 03/04/251921 MR#: [id number] Acct: [id number] Name: PEDRO HILLMAN Rep #:[id number] : 1945 80 From: Nicola Levy DO PCP: Dr. Tonio Fajardo, DO Status:ADM IN Location: [place] [id number] HPI - General General Date of Admission: [...] of COVID-19 and OA who presents to [facility] ER complaining of SOB. Mr. Hillman reports [...] ~53% with moderate mitral annular calcification and [id number]-sxbfhkaz (~1-2+) mitral valve insufficiency with a pulmonary [...] expected to extend beyond 2 midnights. [facility] Medical History Other persistent atrial fibrillation New onset atrial flutter DIMA Wears hearing aid in both ears Former smoker Coronary artery disease Peripheral vascular occlusive disease BPH (benign prostatic hyperplasia) Chronic kidney disease, stage 3 Atherosclerosis of coronary artery of ewiiaapaayp heart without angina pectoris Hyperlipidemia Lower extremity [...] 78.1 H, Lymph % (Auto) 10.1 L, Bladen % (Auto) 9.1, Eos % (Auto) 1.6, [...] at the right lung base. Reading Location: [facility] Assessment & Plan Assessment/Plan (1) CHF exacerbation: QUALIFIERS: Heart failure type: unspecified Qualified Code(s): I50.9 - Heart failure, unspecified (2) Atrial flutter with rapid ventricular response: (3) Chronic anticoagulation: (4) Elevated troponin: (5) Hyperkalemia: (6) Pleural effusion on right: (7) Acute cystitis with hematuria: (8) Atherosclerosis of coronary artery of ewiiaapaayp heart without angina pectoris: QUALIFIERS: Coronary Disease-Associated Artery/Lesion type: nativeartery Qualified Code(s): I25.10 - Atherosclerotic heart disease of ewiiaapaayp coronary artery without angina pectoris (9) Overweight [...] LVEF. Serialize troponin. Finally, we will consult [facility] see this patient on rounds [...] 75 minutes. Charges/Coding Visit Charges Inpatient E&M: 30243 Init Hosp L3 03/05/25 0622 <Electronically signed by Nicola Lindsey DO> Cosigner Signature (if applicable): CC: Dr. Nicola Lindsey DO; Dr. Tonio Fajardo DO~ Signed [facility] Work Phone: [phone] 425-256407-17-2025 History and physical note [facility] Medical Records Department [address] [place] [address] H&P Exam - Hospitalist 03/04/251921 MR#: [id number] Acct: [id number] Name: PEDRO HILLMAN Rep #:[id number] : 1945 80 From: Nicola Levy DO PCP: Dr. Tonio Fajardo DO Status:ADM [facility] HPI - General General Date of [...] of COVID-19 and OA who presents to [facility] ERcomplaining of SOB. Mr. Hillman reports his [...] ~53% with moderate mitral annular calcification and nhqo-du-peelkodh (~1-2+) mitral valve insufficiency with a pulmonary [...] expected to extend beyond 2 midnights. [facility] Medical History Other persistent atrial fibrillation New onset atrial flutter COVID Wears hearing aid in both ears Former smoker Coronary artery disease Peripheral vascular occlusive disease BPH (benign prostatic hyperplasia) Chronic kidney disease, stage 3 Atherosclerosis of coronary artery of ewiiaapaayp heart without angina pectoris Hyperlipidemia Lower extremity [...] 78.1 H, Lymph % (Auto) 10.1 L, [place] % (Auto) 9.1, Eos % (Auto) 1.6, [...] at the right lung base. Reading Location: [place] [address] Assessment & Plan Assessment/Plan (1) CHF exacerbation: QUALIFIERS: Heart failure type: unspecified Qualified Code(s): I50.9 - Heart failure, unspecified (2) Atrial flutter with rapid ventricular response: (3) Chronic anticoagulation: (4) Elevated troponin: (5) Hyperkalemia: (6) Pleural effusion on right: (7) Acute cystitis with hematuria: (8) Atherosclerosis of coronary artery of ewiiaapaayp heart without angina pectoris: QUALIFIERS: Coronary Disease-Associated Artery/Lesion type: nativeartery Qualified Code(s): I25.10 - Atherosclerotic heart disease of ewiiaapaayp coronary artery without angina pectoris (9) Overweight [...] LVEF. Serialize troponin. Finally, we will consult [facility] see this patient on rounds [...] 75 minutes. Charges/Coding Visit Charges Inpatient E&M: 24771 Init Hosp L3 03/05/25 0622 Cosigner Signature (if applicable): CC: Dr. Nicola Lindsey DO; Dr. Tonio Fajardo DO~ Signed [facility]07-17-2025 Radiology Diagnostic study note [facility] Imaging Services [address] [place], [place] [id number] Chest 1 View (Portable) MR#: [id number] Acct: [id number] Name: PEDRO HILLMAN Rep #: [id number] : 1945 M 80 From: Regi Babb MD PCP: Dr. Tonio Fajardo DO Status: ADM IN Study:Chest 1 View (Portable) Date of Exam: 03/05/25 Exam# [id number] Ordering Dr: Nicola Mukherjee DO PROCEDURE: CHEST [...] Lindsey DO; Dr. Tonio Fajardo DO ~ Chef Saucier: Signed [facility]07-16-2025 Evaluation note* Diagnosis Onset Date Resolution Status [...] 042024 7:57pm Atherosclerosis of coronary artery of ewiiaapaayp heart without angina pectoris chronic March 04, 2025 7:57pm CHF exacerbation chronic February 7:57pm Hypertension chronic March 04, 2 025 7:57pm [facility] Work Phone: 1(830) 777-587107-16-2025 Evaluation note* Diagnosis Onset Date Resolution Status Admit Date Acute cystitis with hematuria acute March 04, 2025 7:57pm Atrial flutter with rapid ventricular response acute March 04, 2025 7:57pm Chronic anticoagulation acute shanda2024 7:57pm Coronary artery disease acute J 2024 [...] 042024 7:57pm Atherosclerosis of coronary artery of ewiiaapaayp heart without angina pectoris chronic March 04, [...] pass graft 2013 March 17, 2025 12:51pm [facility] Work Phone: 1(845) 717-173307-16-2025 Evaluation note* Diagnosis Onset Date Resolution Status [...] 042024 7:57pm Atherosclerosis of coronary artery of ewiiaapaayp heart without angina pectoris chronic March 04, [...] aortocoronary by pass graft 2012April 05 7:55pm [facility] Work Phone: 1(844) 906-344907-16-2025 Evaluation note* Diagnosis Onset Date Resolution Status [...] 042024 7:57pm Atherosclerosis of coronary artery of ewiiaapaayp heart without angina pectoris chronic March 04, [...] cardiac pacemaker acute April 10, 2025 11:14am [facility] Work Phone: [phone]) 150-955207-16-2025 Evaluation note* Diagnosis Onset Date Resolution Status [...] 042024 7:57pm Atherosclerosis of coronary artery of ewiiaapaayp heart without angina pectoris chronic March 04, [...] infection) resolv ed April 10, 2025 6:33pm [facility] Work Phone: [phone] 231-749707-16-2025 Evaluation note* Diagnosis Onset Date Resolution Status [...] 2025 7:57pm Atherosclerosis of coronary artery of ewiiaapaayp heart without angina pectoris chronic March 04, [...] te April 10, 2025 6:33pm Debility acute Parkman 22nd, 2 025 6:33pm History of lung cancer [...] 17, 2025 6:19pm Hyperlipidemia chronic March 6:19pm [facility] Work Phone: [phone]) 786-142907-16-2025 Evaluation note* Diagnosis Onset Date Resolution Status [...] 2025 7:57pm Atherosclerosis of coronary artery of ewiiaapaayp heart without angina pectoris chronic March 04, [...] 3b acute April 10 6:33pm Debility acute Parkman 22nd, 2 025 6:33pm History of lung cancer [...] acute April 17 6:19pm Debility acute April 17 025 6:19pm Type 2 diabetes mellitus wit h hyperglycemia acute April 17 6:19pm COPD (chronic obstructive pulmonary disease) chronic April 17, 2025 6:19pm Hyperlipidemia chronic March 6:19pm Acute heart failure with preserved ejection fraction (HFpEF) resolved April 17 6:19pm Acute respiratory failure wi th hypoxia resolved April 17 6:19pm Pleural effusion resolved March 212024 6:19pm Pneumonia resolved April 17 6:19pm Pneumothorax resolved April 17, 2025 6:19pm Tachy-brittany syndrome resolved st 2024 6:19pm Orthostatic hypotension acute S epteer 2024 1:48pm Syncope acute April 20, 2025 1:48pm [facility] Work Phone: 1(844) 569-988807-16-2025 Evaluation note* Diagnosis Onset Date Resolution Status [...] 2025 7:57pm Atherosclerosis of coronary artery of ewiiaapaayp heart without angina pectoris chronic March 04, [...] April 10, 2025 6:33pm Tachy-brittany syndrome resolved 2024 6:33pm UTI (urinary tract infection) resolv ed April 10, 2025 6:33pm Atrial fibrillation acute Augus t 2024 6:19pm BPH (benign prostatic hyperplasia) acute April 17 6:19pm Debility acute April 17, 025 6:19pm Type 2 diabetes mellitus wit h hyperglycemia acute April 17 6:19pm COPD (chronic obstructive pulmonary disease) chronic April 17, 2025 6:19pm Hyperlipidemia chronic March 6:19pm Acute heart failure with preserved ejection fraction (HFpEF) resolved April 17 6:19pm Acute respiratory failure wi th hypoxia resolved April 17 6:19pm Pleural effusion resolved March 212024 6:19pm Pneumonia resolved April 17 2 025 6:19pm Pneumothorax resolved April 17, 2025 6:19pm Tachy-brittany syndrome resolved st 2024 6:19pm Orthostatic hypotension inactive S eptemb2024 1:48pm Syncope inactive April 20, 2025 1:48pm (HFpEF) heart failure with preserved ejection fraction acute Sept emb2024 7:21pm Atrial fibrillation acute Septe mber 2024 7:21pm BPH (benign prostatic hyperplasia) acute April 23 7:21pm Debility acute April 23, 2025 7:21pm Dehydration acute April 7:21pm PAOD (peripheral arterial occlusive disease) acute April 7:21pm Recurrent right pleural effusion acute April 23 7:21pm Type 2 diabetes mellitus wit h hyperglycemia acute April 23 7:21pm COPD (chronic obstructive pulmonary disease) chronic April 7:21pm Hyperlipidemia chronic April 23, 2025 7:21pm Tachy-brittany syndrome resolved Apr 7:21pm Orthostatic hypotension inactive S eptemb2024 7:21pm Syncope inactive April 23, 2025 7:21pm [facility] [employer] [facility] Work Phone: 1(694) 900-931607-16-2025 Evaluation note* Diagnosis Onset Date Resolution Status [...] 2025 7:57pm Atherosclerosis of coronary artery of ewiiaapaayp heart without angina pectoris chronic March 04, [...] 2025 12:51pm 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 March 17, 2025 12:51pm [...] 05 7:55pm 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 April 05 7:55pm Acute [...] April 10, 2025 6:33pm Tachy-brittany syndrome resolved 2024 6:33pm UTI (urinary tract infection) resolv ed April 10, 2025 6:33pm Atrial fibrillation acute t 2024 6:19pm BPH (benign prostatic hyperplasia) acute April 17 6:19pm Debility acute April 17, 025 6:19pm Type 2 diabetes mellitus wit h hyperglycemia acute April 17 6:19pm COPD (chronic obstructive pulmonary disease) chronic April 17, 2025 6:19pm Hyperlipidemia chronic March 6:19pm Acute heart failure with preserved ejection fraction (HFpEF) resolved April 17 6:19pm Acute respiratory failure wi th hypoxia resolved April 17 6:19pm Pleural effusion resolved March 212024 6:19pm Pneumonia resolved April 17 6:19pm Pneumothorax resolved April 17, 2025 6:19pm Tachy-brittany syndrome resolved 2024 6:19pm Orthostatic hypotension inactive S epte2024 1:48pm Syncope inactive April 20, 2025 1:48pm (HFpEF) heart failure with preserved ejection fraction acute Apr 7:21pm Atrial fibrillation acute 2024 7:21pm BPH (benign prostatic hyperplasia) acute April 23, 025 7:21pm Debility acute April 23, 2025 7:21pm Dehydration acute April 7:21pm PAOD (peripheral arterial occlusive disease) acute April 7:21pm Recurrent right pleural effusion acute April 23, 025 7:21pm Type 2 diabetes mellitus wit h hyperglycemia acute April 23 025 7:21pm COPD (chronic obstructive pulmonary disease) chronic April 7:21pm Hyperlipidemia chronic April 23, 2025 7:21pm Tachy-brittany syndrome resolved Apr 7:21pm Orthostatic hypotension inactive S epte2024 7:21pm Syncope inactive April 23, 2025 7:21pm Heart block AV complete acute S eptember 2024 10:17am Presence of cardiac pacemaker acute April 28, 2025 10:17am [facility] [employer] [facility] Work Phone: 1(116) 610-741007-16-2025 Evaluation note* Diagnosis Onset Date Resolution Status [...] 2025 7:57pm Atherosclerosis of coronary artery of ewiiaapaayp heart without angina pectoris chronic March 04, [...] 6:19pm Debility acute April 17, 025 6:19pm Type 2 diabetes mellitus wit [...] resolved Augu st 2024 6:19pm Orthostatic hypotension inactive S eptemb2024 1:48pm Syncope inactive April 20, 2025 1:48pm (HFpEF) heart failure with preserved ejection fraction acute Apr 7:21pm Atrial fibrillation acute 2024 7:21pm BPH (benign prostatic hyperplasia) acute April 23 7:21pm Debility acute April 23, 2025 7:21pm Dehydration acute April 7:21pm PAOD (peripheral arterial occlusive disease) acute April 7:21pm Recurrent right pleural effusion acute April 23 7:21pm Type 2 diabetes mellitus wit h hyperglycemia acute April 23 7:21pm COPD (chronic obstructive pulmonary disease) chronic April 7:21pm Hyperlipidemia chronic April 23, 2025 7:21pm Tachy-brittany syndrome resolved Apr 7:21pm Orthostatic hypotension inactive S te2024 7:21pm Syncope inactive April 23, 2025 7:21pm Heart block AV complete acute S eptemb2024 10:17am Presence of cardiac pacemaker acute April 28, 2025 10:17am Atrial fibrillation acute 2024 2:41pm [facility] Work Phone: [phone]) 752-822607-16-2025 Discharge summary Author Chris Ochoa [facility] Note Date/Time March 04, 2025 7:26 pm [facility] Medical Records Department [address] [place] [address] Emergency Department Summary 03/04/25 MR#: [id number] Acct: [id number] Name: PEDRO HILLMAN Rep #:[id number] : 1945 80 From: Chris Ochoa MD [...] symptoms: Yes Recent Illness/Hospitalization: No PFSH [facility] Medical History Other persistent atrial fibrillation New onset atrial flutter COVID Wears hearing aid in both ears Former smoker Coronary artery disease Peripheral vascular occlusive disease BPH (benign prostatic hyperplasia) Chronic kidney disease, stage 3 Atherosclerosis of coronary artery of ewiiaapaayp heart without angina pectoris Hyperlipidemia Lower extremity [...] signs. Back nontender. Movingall 4 extremities. Normal corrective therapy aide strength. Calves nontender without edema or cords. [...] 78.1 H Lymph % (Auto) 10.1 L [place] % (Auto) 9.1 Eos % (Auto) 1.6 [...] right lung base. Reading Location: [facility]-1 Chest x-ray, 2 views, AP and lateral, [...] COPD, Chronic kidneydisease, Chronic anticoagulation Disposition Disposition: [facility] What to do if you have Problems For any increased pain, shortness of breath, bleeding, nausea or vomiting, chestpain, or any unexpected problems, contact your Primary Care Provider. Call [facility] ([phone]) or report to the closest Emergency Room. Call 911 if necessary. 03/04/251925 <Electronically signed by Chris Ochoa MD> Cosigner Signature (if applicable): CC: Dr. Tonio Fajardo DO ~ Signed [facility] Work Phone: 1(961) 425-225007-16-2025 Discharge summary [facility] Medical Records Department [address] [place] [address] Emergency Department Summary 03/04/25 MR#: [id number] Acct: [id number] Name: PEDRO HILLMAN Rep #:[id number] : 1945 80 From: Chris Ochoa MD [...] stage 3 Atherosclerosis of coronary artery of ewiiaapaayp heart without angina pectoris Hyperlipidemia Lower extremity [...] signs. Back nontender. Movingall 4 extremities. Normal corrective therapy aide strength. Calves nontender without edema or cords. [...] 78.1 H Lymph % (Auto) 10.1 L [place] % (Auto) 9.1 Eos % (Auto) 1.6 [...] at the right lung base. [facility] Chest x-[facility], 2 views, AP and [...] Chronic anticoagulation Disposition Disposition: [facility] What to do if you have Problems For any increased pain, shortness of breath, bleeding, nausea or vomiting, chestpain, or any unexpected problems, contact your Primary Care Provider. Call [facility] ([phone]) or report tothe closest Emergency Room. Call 911 if necessary. 03/04/251925 Cosigner Signature (if applicable): CC: Dr. Tonio Fajardo DO ~ Signed [facility]07-16-2025 Radiology Diagnostic study note [facility] Imaging Services [address] [place] [address] Chest PA and Lateral MR#: [id number] Acct: [id number] Name: PEDRO HILLMAN Rep #: [id number] : 1945 M 80 From: Tom Flores MD PCP: Dr. Tonio Fajardo DO Status: PRE ER Study:Chest PA and Lateral Date of Exam: 03/04/25 Exam# [id number] Ordering Dr: Camila Ochoa MD PROCEDURE: CHEST [...] at the right lung base. Reading Location: [place] [address] CC: Dr. Chris Ochoa MD; Dr. Tonio Fajardo DO ~ Chef Saucier: Signed [facility]07-16-2025 Discharge summary Author Chris Ochoa [facility] Note Date/Time March 04, 2025 7:26 pm [facility] Medical Records Department [address] [place] [address] Emergency Department Summary 03/04/25 MR#: [id number] Acct: [id number] Name: PEDRO HILLMAN Rep #:[id number] : 1945 80 From: Chris Ochoa MD [...] stage 3 Atherosclerosis of coronary artery of ewiiaapaayp heart without angina pectoris Hyperlipidemia Lower extremity [...] signs. Back nontender. Movingall 4 extremities. Normal corrective therapy aide strength. Calves nontender without edema or cords. [...] Air Oxygen Flow Rate (L/min) 03/04/25 18:00 07/16/25 19:00 Temperature 97.9 F 97.9 F Temperature [...] 78.1 H Lymph % (Auto) 10.1 L Bl[place] % (Auto) 9.1 Eos % (Auto) 1.6 [...] at the right lung base. Reading Location: [place] [address] Chest x-ray, 2 views, AP and lateral, [...] Chronic anticoagulation Disposition Disposition: [facility] What to do if you have Problems For any increased pain, shortness of breath, bleeding, nausea or vomiting, chestpain, or any unexpected problems, contact your Primary Care Provider. Call [facility] ([phone]) or report to the closest Emergency Room. Call 911 if necessary. 03/04/251925 <Electronically signed by Chris Ochoa MD> Cosigner Signature (if applicable): CC: Dr. Tonio Fajardo, DO ~ Signed [facility] Work Phone: 1([phone]) 362-917903-20-2025 Evaluation note* Diagnosis Onset Date Resolution Status [...] 2025 7:57pm Atherosclerosis of coronary artery of ewiiaapaayp heart without angina pectoris chronic March 04, 2025 7:57pm CHF exacerbation chronic February 7:57pm [facility] Work Phone: 1(503) 924-715303-13-2025 Radiology Diagnostic study note [facility] Imaging Services [address] [place] [address] CT Chest AND Abd W/ Contrast MR#: [id number] Acct: [id number] Name: PEDRO HILLMAN Rep #: [id number] : 1945 M 79 From: Tom Flores MD PCP: Dr. Tonio Fajardo, DO Status: REG CLI Study:CT Chest AND Abd W/ Contrast Date of Ex am: 10/30/24 Exam# [id number] Ordering Dr: Frantz Zamora MD PROCEDURE: CT [...] use of iterative reconstruction technique). Reading Location: [id number] CC: Dr. Russ Zamora MD; Dr. Tonio Fajardo DO ~ Chef Saucier: Signed [facility]02-28-2025 Procedure notey [facility] Pulmonary Services/Neurology [address] [place] [address] MR#: [id number] Acct: [id number] Name: PEDRO HILLMAN Rep #:[id number] : 1945 79 From: Tyrell Uriarte DO Referring Dr: Lorie Mart NP FAMILY NURSE-C Status: REG CLI Location: PSN Date: Sex: M C PSN 6 Minute Walk Test 6 Minute Walk Test 6 Minute Walk Test: 6 Minute Walk Test PSN:6-Minute Walk Test Start: 10/16/24 13:24 Freq: Status: Active Protocol: RESP.6MINW Document 10/16/24 13:24 [facility] (Rec: 10/16/24 13:34 [facility] [id number]) 6 Minute Walk Test Date Performed 10/16/24 Time Performed 12:30 Height 5 ft 6 in Weight: 174 lb Weight in Pounds 174.[address]: Lorie Mart FAMILY NURSE Assistive device Walker used: Pre-test Oxygen Delivery [...] Dictated: 10/17/24 1004 Date Transcribed: 10/17/24 1004 Chef Saucier: Dr. Tyrell Uriarte, DO Signed [facility]02-06-2025 Evaluation note* Diagnosis Onset Date Resolution Status [...] lobe of right lung chronic 2024 2:10pm [facility] Work Phone: [phone]) [phone] Evaluation note* Diagnosis Onset Date Resolution Status [...] right lung chronic Marlon h 2024 1:24pm [facility] Work Phone: [phone]) [phone] Procedure [facility] 04-18-2023 Progress note Author Joaquim Suárez [facility] April 18, 2023 7:12pm Note Date/Time April 18, 2023 3: 56pm [facility] [address] [place] [address] Progress Note - Wound Care 04/18/23 1549 MR#: [id number] Acct: [id number] Name: PEDRO HILLMAN Rep #:[id number] : 1945 78 From: Joaquim BORJAS PCP: [...] Recorded Date Recorded By Document 04/02/23 11:24 [id number] 04/02/23 11:25 Document 04/18/23 13:24 [facility] [id number] 04/18/23 13:30 [facility] 04/02/23 04/18/23 11:24 13:24 - Today's Visit Information Type of service Follow-up Visit Follow-up Visit (Physician/SAMPLE EXAMINER (Physician/SAMPLE EXAMINER ) ) Arrival Mode Ambulatory,Cane Ambulatory,Cane Transfer [...] Recorded Date Recorded By Document 04/18/23 13:24 [facility] [id number] 04/18/23 13:30 [facility] 04/18/23 13:24 Wound Center Nurse 1 [...] Attached -Granulation Amt Large (67-100%) -Granulation Quality [place] -Slough/Fibrin No -Necrosis Amt None Present (0 [...] Recorded Date Recorded By Document 04/02/23 11:42 [id number] 04/02/23 11:53 Document 04/18/23 14:03 [id number] 04/18/23 14:04 04/02/23 04/18/23 11:42 14:03 Wound [...] Recorded Date Recorded By Document 04/02/23 11:54 [id number] 04/02/23 11:54 Document 04/18/23 14:24 RB [id number] 04/18/23 14:25 RB 04/02/23 04/18/23 11:54 14:24 [...] mellitus with diabetic polyneuropathy QUALIFIERS: Diabetes mellitus half-way insulin use: with half-way use Qualified Code(s): E11.42 - Type 2 diabetes mellitus with diabetic polyneuropathy; Z79.4 - CHCF (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 of insulin PLAN: Educated the [...] Cosigner Signature (if applicable): CC: ~ Signed [facility] Work Phone: 1(907) 878-566008-20-2023 Progress note Author Bonny Glynn [facility] April 07, 2023 10:44pm Note Date/Time April 02, 2023 12 :35pm [facility] Wound Healing Center [address] [place] [address] Progress Note - Wound Care 04/02/23 1235 MR#: [id number] Acct: [id number] Name: PEDRO HILLMAN Rep #:[id number] : 1945 78 From: Bonny garcia FAMILY NURSE FAMILY NURSE-C PCP: Dr. Tonio Fajardo, DO Status:REG RCR [...] 11:24 04/02/23 11:24 Charges/Coding Procedures Integumentary 111xxx-113xx: 49450 Mihaela subq tissue 20 sq cm/< Debridement [...] Date Recorded By Document 04/02/23 11:24 PL [id number] 04/02/23 11:25 PL 04/02/23 11:24 - Today's Visit Information Type of service Follow-up Visit (Physician/SAMPLE EXAMINER ) Arrival Mode Ambulatory,Cane Transfer Assistance None [...] Date Recorded By Document 04/02/23 11:42 DORA [id number] 04/02/23 11:53 DORA 04/02/23 11:42 Wound Center [...] Recorded Date Recorded By Document 04/02/23 11:54 [id number] 04/02/23 11:54 04/02/23 11:54 Wound Care Center [...] that the wound center will have a granite polisher, will have the patient see him for further evaluation and treatment. Follow up two weeks. Call or come in sooner if develop any questions or concerns. 04/07/23 1196 <Electronically signed by Bonny Glynn NP FAMILY NURSE-C> Cosigner Signature (if applicable): CC: ~ Signed [facility] Work Phone: 1(550) 769-507107-17-2023 Progress note Author Bonny Glynn [facility] March 05, 2023 1:06pm Note Date/Time March 05, 2023 12:2 9pm [facility] W[facility]aling [facility] [address] [place] [address] Progress Note - Wound Care 03/05/23 1226 MR#: [id number] Acct: [id number] Name: PEDRO HILLMAN Rep #:[id number] : 1945 78 From: Bonny garcia NP FAMILY NURSE-C PCP: Dr. Tonio Fajardo, DO Status:REG RCR [...] Method Room Air Charges/Coding Procedures Integumentary 111xxx-113xx: 09587 Mihaela subq tissue 20 sq cm/< Debridement [...] Recorded Date Recorded By Document 02/19/23 13:34 [id number] 02/19/23 13:36 Document 03/05/23 11:26 KW [id number] 03/05/23 11:29 KW 02/19/23 03/05/23 13:34 11:26 - Today's Visit Information Type of service Follow-up Visit Follow-up Visit (Physician/SAMPLE EXAMINER (Physician/SAMPLE EXAMINER ) ) Arrival Mode Ambulatory Ambulatory,Cane Accompanied [...] Recorded Date Recorded By Document 02/19/23 13:34 [id number] 02/19/23 13:36 Document 03/05/23 11:26 [id number] 03/05/23 11:29 02/19/23 03/05/23 13:34 11:26 Wound [...] Large (67-100%) Small (1-33%) -Granulation Quality [place] -Slough/Fibrin No -Necrosis Amt Small (1-33%) -Structure [...] Recorded Date Recorded By Document 02/19/23 13:37 [id number] 02/19/23 13:39 Document 03/05/23 11:37 [id number] 03/05/23 11:46 02/19/23 03/05/23 13:37 11:37 Wound [...] Date Recorded By Document 02/19/23 13:43 MW [id number] 02/19/23 13:44 MW Document 03/05/23 11:53 [facility] [id number] 03/05/23 11:55 BM 02/19/23 03/05/23 13:43 11:53 [...] 1306 <Electronically signed by Bonny Glynn NP FAMILY NURSE-C> Cosigner Signature (if applicable): CC: ~ Signed [facility] Work Phone: 1(667) 931-145907-03-2023 Progress note Author Bonny Glynn [facility] February 19, 2023 2:23pm Note Date/Time February 19, 2023 2:16p m [facility] [address] [place] [address] Progress Note - Wound Care 02/19/23 1412 MR#: [id number] Acct: [id number] Name: PEDRO HILLMAN Rep #:[id number] : 1945 78 From: Bonny garcia NP FAMILY NURSE-C PCP: Dr. Tonio Fajardo, DO Status:REG RCR [...] 13:34 02/19/23 13:34 Charges/Coding Procedures Integumentary 111xxx-113xx: 34068 Mihaela subq tissue 20 sq cm/< Debridement [...] Start: 02/19/23 13:34 Freq: Status: Active Protocol: URBAN.LOWMICHOACANOT Activity Type Activity Date Activity User E-sign Co-sign Detail Recorded Client Recorded Date Recorded By Document 02/19/23 13:34 DORA [id number] 02/19/23 13:36 DORA 02/19/23 13:34 - Today's Visit Information Type of service Follow-up Visit (Physician/SAMPLE EXAMINER ) Arrival Mode Ambulatory Patient Requires Transmission-Based [...] Date Recorded By Document 02/19/23 13:34 DORA [id number] 02/19/23 13:36 02/19/23 13:34 Wound Center Nurse [...] Date Recorded By Document 02/19/23 13:37 DORA [id number] 02/19/23 13:39 02/19/23 13:37 Wound Center Nurse [...] Date Recorded By Document 02/19/23 13:43 MW [id number] 02/19/23 13:44 MW 02/19/23 13:43 Wound Care [...] 02/19/23 1423 <Electronically signed by Bonny Glynn FAMILY NURSE FAMILY NURSE-C> Cosigner Signature (if applicable): CC: ~ Signed [facility] Work Phone: 1([phone]) 787-791606-19-2023 Progress note Author Bonny Glynn [facility] February 05, 2023 2:37pm Note Date/Time February 05, 2023 1:59 pm [facility] [address] [place] [address] Progress Note - Wound Care 02/05/23 1359 MR#: [id number] Acct: [id number] Name: PEDRO HILLMAN Rep #:[id number] : 1945 78 From: Bonny garcia FAMILY NURSE FAMILY NURSE-C PCP: Dr. Tonio Fajardo, DO Status:REG RCR Location: History of Present Illness Date of Service: 02/05/23 Chief Complaint: right medial foot ulcer History of Wound: This 78-year-old male returns to the wound healing clinic for reoccurrence of a right medial foot ulcer. Wound care has been Moistened [place] covered with [place] SAP dressing. Patient diabetic neuropathic. Patient dealing [...] Method Room Air Charges/Coding Procedures Integumentary 111xxx-113xx: 99353 Mihaela subq tissue 20 sq cm/< Debridement [...] Date Recorded By Document 01/22/23 13:45 DL [id number] 01/22/23 13:48 DL Document 02/05/23 13:10 BMF [id number] 02/05/23 13:15 BMF 01/22/23 02/05/23 13:45 13:10 - Today's Visit Information Type of service Follow-up Visit Follow-up Visit (Physician/SAMPLE EXAMINER (Physician/SAMPLE EXAMINER ) ) Arrival Mode Ambulatory Ambulatory,Cane Transfer [...] Date Recorded By Document 01/22/23 13:45 DL [id number] 01/22/23 13:48 DL Document 02/05/23 13:10 [facility] [id number] 02/05/23 13:15 [facility] 01/22/23 02/05/23 13:45 13:10 Wound Center [...] Present (0 Large (67-100%) %) -Granulation Quality [place] -Slough/Fibrin Yes -Necrosis Amt Small (1-33%) Small [...] Recorded Date Recorded By Document 01/22/23 14:22 [id number] 01/22/23 14:23 01/22/23 14:22 Wound Center Nurse [...] Date Recorded By Document 01/22/23 14:30 DL [id number] 01/22/23 14:31 DL Document 02/05/23 13:49 [facility] [id number] 02/05/23 13:49 [facility] 01/22/23 02/05/23 14:30 13:49 Wound Care [...] 1437 <Electronically signed by Bonny Glynn NP FAMILY NURSE-C> Cosigner Signature (if applicable): CC: ~ Signed [facility] Work Phone: [phone]) 532-903806-05-2023 Progress note Author Bonny Glynn [facility] January 22, 2023 3:47pm Note Date/Time January 22, 2023 3:31p m [facility] Wound Healing Center [address] [place] [address] Progress Note - Wound Care 01/22/23 1529 MR#: [id number] Acct: [id number] Name: PEDRO HILLMAN Rep #:[id number] : 1945 78 From: Bonny garcia FAMILY NURSE FAMILY NURSE-C PCP: Dr. Tonio Fajardo, DO Status:REG RCR Location: History of Present Illness Date of Service: 01/22/23 Chief Complaint: right medial foot ulcer History of Wound: This 78-year-old male returns to the wound healing clinic for reoccurrence of a right medial foot ulcer. Wound care has been Moistened [place] covered with [place] SAP dressing. Patient diabetic neuropathic. Patient dealing [...] 13:45 01/22/23 13:45 Charges/Coding Procedures Integumentary 111xxx-113xx: 78926 Mihaela subq tissue 20 sq cm/< Debridement [...] Date Recorded By Document 01/22/23 13:45 DL [id number] 01/22/23 13:48 DL 01/22/23 13:45 WC - Today's Visit Information Type of service Follow-up Visit (Physician/SAMPLE EXAMINER ) Arrival Mode Ambulatory Transfer Assistance None [...] Date Recorded By Document 01/22/23 13:45 DL [id number] 01/22/23 13:48 DL 01/22/23 13:45 Wound Center [...] Date Recorded By Document 01/22/23 14:22 DORA [id number] 01/22/23 14:23 DORA 01/22/23 14:22 Wound Center [...] Date Recorded By Document 01/22/23 14:30 DL [id number] 01/22/23 14:31 DL 01/22/23 14:30 Wound Care [...] 1547 <Electronically signed by Bonny Glynn NP FAMILY NURSE-C> Cosigner Signature (if applicable): CC: ~ Signed [facility] Work Phone: [phone]) 820-339805-22-2023 Progress note Author Bonny Glynn [facility] January 08, 2023 2:17pm Note Date/Time January 08, 2023 2:10p m [facility] [address] [place] [address] Progress Note - Wound Care 01/08/23 1407 MR#: [id number] Acct: [id number] Name: PEDRO HILLMAN Rep #:[id number] : 1945 77 From: Bonny garcia NP FAMILY NURSE-C PCP: Dr. Tonio Fajardo, DO Status:REG RCR Location: History of Present Illness Date of Service: 01/08/23 Chief Complaint: right medial foot ulcer History of Wound: This 77-year-old male returns to the wound healing clinic for reoccurrence of a right medial foot ulcer. Wound care has been Moistened [place] covered with [place] SAP dressing. Patient diabetic neuropathic. Patient dealing [...] 14:53 01/08/23 13:37 Charges/Coding Procedures Integumentary 111xxx-113xx: 76834 Mihaela subq tissue 20 sq cm/< Debridement [...] Date Recorded By Document 12/18/22 13:20 PL [id number] 12/18/22 13:27 PL Document 12/25/22 14:53 [id number] 12/25/22 14:54 Document 01/08/23 13:37 NE [id number] 01/08/23 13:39 AK 12/18/22 12/25/22 01/08/23 13:20 14:53 13:37 - Today's Visit Information Type of service Follow-up Visit Follow-up Visit Follow-up Visit (Physician/SAMPLE EXAMINER (Physician/SAMPLE EXAMINER (Physician/SAMPLE EXAMINER ) ) ) Arrival Mode Ambulatory Ambulatory [...] Date Recorded By Document 12/18/22 13:20 PL [id number] 12/18/22 13:27 PL Document 12/25/22 14:53 [id number] 12/25/22 14:54 Document 01/08/23 13:37 NE [id number] 01/08/23 13:39 AK 12/18/22 12/25/22 01/08/23 13:20 [...] (34-66%) Small (1-33%) Medium (34-66%) -Granulation Quality [place] Pale -Slough/Fibrin No Yes Yes -Necrosis Amt [...] Recorded Date Recorded By Document 12/18/22 13:51 [id number] 12/18/22 13:53 Document 12/25/22 15:00 [id number] 12/25/22 15:10 Document 01/08/23 14:01 [id number] 01/08/23 14:02 12/18/22 12/25/22 01/08/23 13:51 15:00 [...] Date Recorded By Document 12/18/22 14:07 PL [id number] 12/18/22 14:07 PL Document 12/25/22 15:20 DL [id number] 12/25/22 15:20 DL 12/18/22 12/25/22 14:07 15:20 [...] 1417 <Electronically signed by Bonny Glynn NP FAMILY NURSE-C> Cosigner Signature (if applicable): CC: ~ Signed [facility] Work Phone: 1(748) 674-567605-14-[address] Ochoa [facility] December 31, 2022 12:58am Note Date/Time December 30, 2022 11:08 pm [facility] Medical Records Department [address] [place] [address] Emergency Department Summary 12/30/22 MR#: [id number] Acct: [id number] Name: PEDRO HILLMAN Rep #:[id number] : 1945 77 From: Chris Ochoa MD [...] History Anemia Atherosclerosis of coronary artery of ewiia[place]ayp heart without angina pectoris BPH (benign prostatic [...] extremities. Nontender. No edema. No cellulitis. Normal corrective therapy aide strength. Normal dorsi plantarflexion. Neurologically is awake [...] 83.3 H Lymph % (Auto) 6.4 L [place] % (Auto) 9.1 Eos % (Auto) 0.2 [...] Color Urine Clarity Urine pH Ur Specific [place] Urine Protein Urine Glucose (UA) Urine Ketones Urine Occult Blood Urine Nitrite Urine Bilirubin Urine Urobilinogen Ur Leukocyte Esterase Urine RBC Urine WBC Ur Squamous Epith Cells Urine Bacteria Urine Mucus 12/30/22 12/30/22 22:50 23:59 WBC RBC Hgb Hct MCV MCH MCHC RDW Std Deviation RDW Coeff of Reggie Plt Count MPV Immature Gran % (Auto) Neut % (Auto) Lymph % (Auto) [place] % (Auto) Eos % (Auto) Baso % [...] Clarity Clear Urine pH 7.0 Ur Specific [place] 1.005 Urine Protein 100 H Urine Glucose [...] 0:41 EDT Reading Location ID and State: [facility] / [place] Tel , Service support , Chest x-ray, [...] your Primary Care Provider. Call [facility] ([phone]) or report to the closest Emergency Room. Call 911 if necessary. 12/31/22 005 <Electronically signed by Chris Ochoa MD> Cosigner Signature (if applicable): CC: Dr. Tonio Fajardo DO ~ Signed [facility] Work Phone: [phone]) 364-523905-08-2023 Progress note Author Bonny Glynn [facility] December 25, 2022 3:36pm Note Date/Time December 25, 2022 3:36pm [facility] [address] [place] [address] Progress Note - Wound Care 12/25/22 1531 MR#: [id number] Acct: [id number] Name: PEDRO HILLMAN Rep #:[id number] : 1945 77 From: Bonny garcia FAMILY NURSE FAMILY NURSE-C PCP: Dr. Tonio Fajardo DO Status:REG RCR Location: History of Present Illness Date of Service: 12/25/22 Chief Complaint: right medial foot ulcer History of Wound: This 77-year-old male returns to the wound healing clinic for reoccurrence of a right medial foot ulcer. Wound care has been Moistened [place] covered with [place] SAP dressing. Patient diabetic neuropathic. Patient dealing [...] 14:53 12/25/22 14:53 Charges/Coding Procedures Integumentary 111xxx-113xx: 73155 Mihaela subq tissue 20 sq cm/< Debridement [...] Recorded Date Recorded By Document 12/18/22 13:20 [id number] 12/18/22 13:27 Document 12/25/22 14:53 [id number] 12/25/22 14:54 12/18/22 12/25/22 13:20 14:53 - Today's Visit Information Type of service Follow-up Visit Follow-up Visit (Physician/SAMPLE EXAMINER (Physician/SAMPLE EXAMINER ) ) Arrival Mode Ambulatory Ambulatory Transfer [...] Date Recorded By Document 12/18/22 13:20 KIM [id number] 12/18/22 13:27 Document 12/25/22 14:53 [id number] 12/25/22 14:54 12/18/22 12/25/22 13:20 14:53 Wound [...] Amt Medium (34-66%) Small (1-33%) -Granulation Quality [place] -Slough/Fibrin No Yes -Necrosis Amt Medium (34-66%) [...] Recorded Date Recorded By Document 12/18/22 13:51 [id number] 12/18/22 13:53 Document 12/25/22 15:00 [id number] 12/25/22 15:10 12/18/22 12/25/22 13:51 15:00 Wound [...] Date Recorded By Document 12/18/22 14:07 PL [id number] 12/18/22 14:07 PL Document 12/25/22 15:20 DL [id number] 12/25/22 15:20 DL 12/18/22 12/25/22 14:07 15:20 [...] 1536 <Electronically signed by Bonny Glynn NP FAMILY NURSE-C> Cosigner Signature (if applicable): CC: ~ Signed [facility] Work Phone: 1(293) 449-616905-01-2023 Progress note [facility] 18, 2022 2:23pm Note Date/Time December 18, 2022 2:23pm [facility] [address] [place] [address] Progress Note - Wound Care 12/18/22 1419 MR#: [id number] Acct: [id number] Name: PEDRO HILLMAN Rep #:[id number] : 1945 77 From: Bonny Gillis FAMILY NURSE FAMILY NURSE-C PCP: Dr. Tonio Fajardo, DO Status:REG RCR Location: History of Present Illness Date of Service: 12/18/22 Chief Complaint: right medial foot ulcer History of Wound: This 77-year-old male returns to the wound healing clinic for reoccurrence of a right medial foot ulcer. Wound care has been Moistened [place] covered with [place] SAP dressing. Patient diabetic neuropathic. Patient dealing [...] 13:20 12/18/22 13:20 Charges/Coding Procedures Integumentary 111xxx-113xx: 73654 Mihaela subq tissue 20 sq cm/< Debridement [...] Date Recorded By Document 12/18/22 13:20 PL [id number] 12/18/22 13:27 PL 12/18/22 13:20 - Today's Visit Information Type of service Follow-up Visit (Physician/SAMPLE EXAMINER ) Arrival Mode Ambulatory Transfer Assistance None [...] Date Recorded By Document 12/18/22 13:20 KIM [id number] 12/18/22 13:27 KIM 12/18/22 13:20 Wound Center [...] Serosanguineous -Granulation Amt Medium (34-66%) -Granulation Quality [place] -Slough/Fibrin No -Necrosis Amt Medium (34-66%) -Necrotic [...] Date Recorded By Document 12/18/22 13:51 DORA [id number] 12/18/22 13:53 DORA 12/18/22 13:51 Wound Center [...] Date Recorded By Document 12/18/22 14:07 KIM [id number] 12/18/22 14:07 KIM 12/18/22 14:07 Wound Care [...] 1423 <Electronically signed by Bonny Glynn NP FAMILY NURSE-C> Cosigner Signature (if applicable): CC: ~ Signed [facility] Work Phone: 1(819) 929-511404-27-2023 Progress note Author Bonnyparris Glynn [facility] December 14, 2022 2:56pm Note Date/Time December 11, 2022 3:2 7pm [facility] [address] [place] [address] Progress Note - Wound Care 12/11/22 1527 MR#: [id number] Acct: [id number] Name: PEDRO HILLMAN Rep #:[id number] : 1945 77 From: Bonny garcia NP FAMILY NURSE-C PCP: Dr. Tonio Fajardo, DO Status:REG RCR Location: History of Present Illness Date of Service: 12/11/22 Chief Complaint: right medial foot ulcer History of Wound: This 77-year-old male returns to the wound healing clinic for reoccurrence of a right medial foot ulcer. Wound care has been Moistened [place] covered with [place] SAP dressing. Patient diabetic neuropathic. Patient dealing [...] Method Room Air Charges/Coding Procedures Integumentary 111xxx-113xx: 88796 Mihaela subq tissue 20 sq cm/< Debridement [...] Date Recorded By Document 11/20/22 14:43 DL [id number] 11/20/22 14:49 DL Document 11/27/22 14:25 BMF [id number] 11/27/22 14:27 BMF Document 12/06/22 11:35 DL [id number] 12/06/22 11:39 DL Document 12/11/22 13:12 [facility] [id number] 12/11/22 13:21 BM 11/20/22 11/27/22 12/06/22 14:43 14:25 11:35 - Today's Visit Information Type of service Follow-up Visit Follow-up Visit (Physician/SAMPLE EXAMINER (Physician/SAMPLE EXAMINER ) ) Arrival Mode Ambulatory,Cane Ambulatory Transfer [...] Visit Information Type of service Follow-up Visit (Physician/SAMPLE EXAMINER ) Arrival Mode Ambulatory,Cane Transfer Assistance None [...] Date Recorded By Document 11/20/22 14:43 DL [id number] 11/20/22 14:49 DL Document 11/27/22 14:25 [facility] [id number] 11/27/22 14:27 [facility] Document 12/06/22 11:35 DL [id number] 12/06/22 11:39 DL Document 12/11/22 13:12 [facility] [id number] 12/11/22 13:21 [facility] 11/20/22 11/27/22 12/06/22 14:43 14:25 11:35 [...] Amt Small (1-33%) Small (1-33%) -Granulation Quality [place] Pale -Slough/Fibrin -Necrosis Amt Small (1-33%) Small [...] Recorded Date Recorded By Document 11/20/22 15:00 [id number] 11/20/22 15:09 Edit Result 11/20/22 15:00 JF (1) [id number] 11/20/22 15:18 JF Edit Result 11/20/22 15:00 JF (2) [id number] 11/20/22 15:20 Document 11/27/22 14:50 [id number] 11/27/22 15:02 Document 12/06/22 11:46 [id number] 12/06/22 11:57 Document 12/11/22 13:30 [id number] 12/11/22 13:33 (1) #9 Right Inferior Hallux [...] => 08/20/27 - Product Lot Number => [id number] - Percent Used => 100 - Lot number of Saline Used => [id number] 11/20/22 11/27/22 12/06/22 15:00 14:50 11:46 Wound [...] Date 08/20/27 08/20/27 09/20/27 -Product Lot Number [id number] 015 -Percent Used 100 100 100 -Lot number of Saline Used [id number] -Bleeding Controlled with Pressure Pressure Pressure -Treatment [...] Recorded Date Recorded By Document 11/20/22 15:35 [id number] 11/20/22 15:36 Document 11/27/22 15:02 [id number] 11/27/22 15:03 Document 12/06/22 11:57 [id number] 12/06/22 11:58 Document 12/11/22 13:57 [id number] 12/11/22 13:58 11/20/22 11/27/22 12/06/22 15:35 15:02 11:57 Wound [...] if develop any questions or concerns. 12/14/22 8566 <Electronically signed by Bonny Glynn NP FAMILY NURSE-C> Cosigner Signature (if applicable): CC: ~ Signed [facility] Work Phone: 1([phone]) 751-546904-19-2023 Progress note Author Bonny Glynn [facility] December 06, 2022 12:09pm Note Date/Time December 06, 2022 12: 09pm [facility] [address] [place] [address] Progress Note - Wound Care 12/06/22 1205 MR#: [id number] Acct: [id number] Name: PEDRO HILLMAN Rep #:[id number] : 1945 77 From: Bonny garcia FAMILY NURSE FAMILY NURSE-C PCP: Dr. Tonio Fajardo, DO Status:REG RCR Location: History of Present Illness Date of Service: 12/06/22 Chief Complaint: right medial foot ulcer History of Wound: This 77-year-old male returns to the wound healing clinic for reoccurrence of a right medial foot ulcer. Wound care has been Moistened [place] covered with [place] SAP dressing. Patient diabetic neuropathic. Patient dealing [...] 11:35 12/06/22 11:35 Charges/Coding Procedures Integumentary 150xxx-152xx: 38127 Skin sub graft face/nk/hf/g Debridement Note Debridement [...] Date Recorded By Document 11/20/22 14:43 DL [id number] 11/20/22 14:49 DL Document 11/27/22 14:25 [facility] [id number] 11/27/22 14:27 [facility] Document 12/06/22 11:35 DL [id number] 12/06/22 11:39 DL 11/20/22 11/27/22 12/06/22 14:43 14:25 11:35 - Today's Visit Information Type of service Follow-up Visit Follow-up Visit (Physician/SAMPLE EXAMINER (Physician/SAMPLE EXAMINER ) ) Arrival Mode Ambulatory,Cane Ambulatory Transfer [...] Date Recorded By Document 11/20/22 14:43 DL [id number] 11/20/22 14:49 DL Document 11/27/22 14:25 [facility] [id number] 11/27/22 14:27 [facility] Document 12/06/22 11:35 DL [id number] 12/06/22 11:39 DL 11/20/22 11/27/22 12/06/22 14:43 [...] Amt Small (1-33%) Small (1-33%) -Granulation Quality [place] Pale -Necrosis Amt Small (1-33%) Small (1-33%) [...] Recorded Date Recorded By Document 11/20/22 15:00 [id number] 11/20/22 15:09 Edit Result 11/20/22 15:00 JF (1) [id number] 11/20/22 15:18 JF Edit Result 11/20/22 15:00 (2) [id number] 11/20/22 15:20 Document 11/27/22 14:50 [id number] 11/27/22 15:02 Document 12/06/22 11:46 [id number] 12/06/22 11:57 (1) #9 Right Inferior Hallux [...] => 08/20/27 - Product Lot Number => [id number] - Percent Used => 100 - Lot number of Saline Used => [id number] 11/20/22 11/27/22 12/06/22 15:00 14:50 11:46 Wound [...] Date 08/20/27 08/20/27 09/20/27 -Product Lot Number [id number] 015 -Percent Used 100 100 100 -Lot number of Saline Used [id number] -Bleeding Controlled with Pressure Pressure Pressure -Treatment [...] Date Recorded By Document 11/20/22 15:35 DL [id number] 11/20/22 15:36 DL Document 11/27/22 15:02 [id number] 11/27/22 15:03 JF Document 12/06/22 11:57 [id number] 12/06/22 11:58 11/20/22 11/27/22 12/06/22 15:35 15:02 [...] 1204 <Electronically signed by Bonny Glynn NP FAMILY NURSE-C> Cosigner Signature (if applicable): CC: ~ Signed [facility] Work Phone: [phone]) 477-384804-11-2023 Progress note Author Bonny Glynn [facility] November 28, 2022 5:24pm Note Date/Time November 27, 2022 3:1 4pm [facility] [place] [address] Progress Note - Wound Care 11/27/22 1513 MR#: [id number] Acct: [id number] Name: PEDRO HILLMAN Rep #:[id number] : 1945 77 From: Bonny garcia FAMILY NURSE FAMILY NURSE-C PCP: Dr. Tonio Fajardo, DO Status:REG RCR Location: History of Present Illness Date of Service: 11/27/22 Chief Complaint: right medial foot ulcer History of Wound: This 77-year-old male returns to the wound healing clinic for reoccurrence of a right medial foot ulcer. Wound care has been Moistened [place] covered with [place] SAP dressing. Patient diabetic neuropathic. Patient dealing [...] 14:43 11/27/22 14:25 Charges/Coding Procedures Integumentary 150xxx-152xx: 30069 Skin sub graft face/nk/hf/g Debridement Note Debridement [...] Date Recorded By Document 11/20/22 14:43 DL [id number] 11/20/22 14:49 DL Document 11/27/22 14:25 [facility] [id number] 11/27/22 14:27 BM 11/20/22 11/27/22 14:43 14:25 WC - Today's Visit Information Type of service Follow-up Visit Follow-up Visit (Physician/SAMPLE EXAMINER (Physician/SAMPLE EXAMINER ) ) Arrival Mode Ambulatory,Cane Ambulatory Transfer [...] Date Recorded By Document 11/20/22 14:43 DL [id number] 11/20/22 14:49 DL Document 11/27/22 14:25 BMF [id number] 11/27/22 14:27 BMF 11/20/22 11/27/22 14:43 14:25 [...] Thickened -Granulation Amt Small (1-33%) -Granulation Quality [place] -Necrosis Amt Small (1-33%) -Necrotic Tissue Type [...] Date Recorded By Document 11/20/22 15:00 JF [id number] 11/20/22 15:09 JF Edit Result 11/20/22 15:00 JF (1) [id number] 11/20/22 15:18 JF Edit Result 11/20/22 15:00 JF (2) [id number] 11/20/22 15:20 JF Document 11/27/22 14:50 JF [id number] 11/27/22 15:02 JF (1) #9 Right Inferior [...] => 08/20/27 - Product Lot Number => [id number] - Percent Used => 100 - Lot number of Saline Used => [id number] 11/20/22 11/27/22 15:00 14:50 Wound Center Nurse [...] -Expiration Date 08/20/27 08/20/27 -Product Lot Number [id number] -Percent Used 100 100 -Lot number of Saline Used [id number] -Bleeding Controlled with Pressure Pressure -Treatment Response [...] Date Recorded By Document 11/20/22 15:35 DL [id number] 11/20/22 15:36 DL Document 11/27/22 15:02 JF [id number] 11/27/22 15:03 JF 11/20/22 11/27/22 15:35 15:02 [...] place. Compression - Single tubigrip Off-loading - Usman shoe has been re-adjusted at the foot [...] sooner if develop any questions or concerns. 11/28/224 <Electronically signed by Bonny Glynn NP FAMILY NURSE-C> Cosigner Signature (if applicable): CC: ~ Signed [facility] Work Phone: [phone]) [phone] Progress note Author Bonny Glynn [facility] November 26, 2022 10:29pm Note Date/Time November 20, 2022 4:18 pm [facility] [address] [place] [address] Progress Note - Wound Care 11/20/22 1618 MR#: [id number] Acct: [id number] Name: PEDRO HILLMAN Rep #:[id number] : 1945 77 From: Bonny garcia NP FAMILY NURSE-C PCP: Dr. Tonio Fajardo, DO Status:REG RCR Location: History of Present Illness Date of Service: 11/20/22 Chief Complaint: right medial foot ulcer History of Wound: This 77-year-old male returns to the wound healing clinic for reoccurrence of a right medial foot ulcer. Wound care has been Moistened [place] covered with [place] SAP dressing. Patient diabetic neuropathic. Patient dealing [...] 14:43 11/20/22 14:43 Charges/Coding Procedures Integumentary 150xxx-152xx: 23991 Skin sub graft face/nk/hf/g Debridement Note Debridement [...] Date Recorded By Document 11/20/22 14:43 DL [id number] 11/20/22 14:49 DL 11/20/22 14:43 WC - Today's Visit Information Type of service Follow-up Visit (Physician/SAMPLE EXAMINER ) Arrival Mode Ambulatory,Cane Transfer Assistance None [...] Date Recorded By Document 11/20/22 14:43 DL [id number] 11/20/22 14:49 DL 11/20/22 14:43 Wound Center Nurse 1 #9 Right Inferior Hallux -Current Size (cm) - Length 0.2 -Current Size (cm) - Width 0.3 -Current Size (cm) - Depth 0.2 -Total Square Cm 0.06 -Photo Taken No -Exudate Amt Small -Exudate Type Serosanguineous -Wound Margin Thickened -Granulation Amt Small (1-33%) -Granulation Quality [place] -Necrosis Amt Small (1-33%) -Necrotic Tissue Type [...] Date Recorded By Document 11/20/22 15:00 JF [id number] 11/20/22 15:09 JF Edit Result 11/20/22 15:00 JF (1) [id number] 11/20/22 15:18 JF Edit Result 11/20/22 15:00 JF (2) [id number] 11/20/22 15:20 JF (1) #9 Right Inferior [...] => 08/20/27 - Product Lot Number => [id number] - Percent Used => 100 - Lot number of Saline Used => [id number] 11/20/22 15:00 Wound Center Nurse 2 -Time [...] Disc -Expiration Date 08/20/27 -Product Lot Number [id number] -Percent Used 100 -Lot number of Saline Used [id number] -Bleeding Controlled with Pressure -Treatment Response Procedure [...] Date Recorded By Document 11/20/22 15:35 DL [id number] 11/20/22 15:36 DL 11/20/22 15:35 Wound Care [...] 11/26/222228 <Electronically signed by Bonny Glynn NP FAMILY NURSE-C> Cosigner Signature (if applicable): CC: ~ Signed [facility] Work Phone: [phone]) 615-559602-21-2023 Progress note Author Bonny Glynn [facility] October 10, 2022 3:29pm Note Date/Time October 09, 2022 4:10pm [facility] [address] [place] [address] Progress Note - Wound Care 10/09/22 1609 MR#: [id number] Acct: [id number] Name: PEDRO HILLMAN Rep #:[id number] : 1945 77 From: Bonny garcia FAMILY NURSE FAMILY NURSE-C PCP: Dr. Tonio Fajardo, DO Status:REG RCR Location: History of Present Illness Date of Service: 10/09/22 Chief Complaint: right foot ulcer History of Wound: This 77-year-old male returns to the wound healing clinic for reoccurrence of a right medial foot ulcer. Wound care has been Moistened [place] covered with [place] SAP dressing. Patient diabetic neuropathic. Patient dealing [...] Method Room Air Charges/Coding Procedures Integumentary 150xxx-152xx: 78558 Skin sub graft face/nk/hf/g Debridement Note Debridement [...] Recorded Date Recorded By Document 09/25/22 14:25 [facility] [id number] 09/25/22 14:32 BMF Document 10/02/22 13:28 ML [id number] 10/02/22 13:32 ML Document 10/09/22 12:59 DL [id number] 10/09/22 13:04 DL 09/25/22 10/02/22 10/09/22 14:25 13:28 12:59 WC - Today's Visit Information Type of service Follow-up Visit Follow-up Visit Follow-up Visit (Physician/SAMPLE EXAMINER (Physician/SAMPLE EXAMINER (Physician/SAMPLE EXAMINER ) ) ) Arrival Mode Ambulatory,Cane Cane [...] Date Recorded By Document 09/25/22 14:25 BMF [id number] 09/25/22 14:32 BMF Document 10/02/22 13:28 ML [id number] 10/02/22 13:32 ML Document 10/09/22 12:59 DL [id number] 10/09/22 13:04 DL 09/25/22 10/02/22 10/09/22 14:25 [...] (0 Large (67-100%) %) -Granulation Quality [place] -Slough/Fibrin Yes Yes -Necrosis Amt Small (1-33%) [...] Recorded Date Recorded By Document 09/25/22 14:42 [id number] 09/25/22 14:51 Document 10/02/22 14:14 [id number] 10/02/22 14:17 Document 10/09/22 13:17 [id number] 10/09/22 13:26 09/25/22 10/02/22 10/09/22 14:42 14:14 [...] Date 06/20/27 05/20/27 06/20/27 -Product Lot Number [id number] 026 -Percent Used 100 100 100 -Lot number of Saline Used [id number] -Bleeding Controlled with Pressure Pressure Pressure -Treatment [...] Recorded Date Recorded By Document 09/25/22 14:52 [id number] 09/25/22 14:53 Document 10/02/22 14:18 [id number] 10/02/22 14:19 09/25/22 10/02/22 14:52 14:18 Wound [...] positive for Staphylococcus epidermidis and GNR lactose profile saw operator. I spoke with his PCP, Dr Fajardo, who was made aware of the results and he said he would treat him from these results. Follow up one week. 10/10/22 1529 <Electronically signed by Bonny Glynn NP FAMILY NURSE-C> Cosigner Signature (if applicable): CC: ~ Signed [facility] Work Phone: [phone] Progress note Author Bonny Glynn [facility] October 03, 2022 4:51pm Note Date/Time September 26, 2022 1 :17pm [facility] [address] [place] [address] Progress Note - Wound Care 09/25/22 1501 MR#: [id number] Acct: [id number] Name: PEDRO HILLMAN Rep #:[id number] : 1945 77 From: Bonny garcia NP FAMILY NURSE-C PCP: Dr. Tonio Fajardo, DO Status:REG RCR Location: ADDENDUM by FARHEEN Glynn on 10/03/22 at 1651 Addendum [place] [address] Procedures Integumentary 150xxx-152xx: 24775 Skin sub graft face/nk/hf/g 10/03/22 1651<Electronically signed by Bonny Glynn NP FAMILY NURSE-C> Cosigner Signature (if applicable): cc: ~* Signed History of Present Illness Date of Service: 09/25/22 Chief Complaint: right foot ulcer History of Wound: This 77-year-old male returns to the wound healing clinic for reoccurrence of a right medial foot ulcer. Wound care has been Moistened Cass covered with [place] SAP dressing. Patient diabetic neuropathic. Patient dealing [...] Method Room Air Charges/Coding Procedures Integumentary 150xxx-152xx: 76598 Skin sub graft trnk/arm/leg Debridement Note Debridement [...] Recorded Date Recorded By Document 09/25/22 14:25 [facility] [id number] 09/25/22 14:32 [facility] 09/25/22 14:25 - Today's Visit Information Type of service Follow-up Visit (Physician/SAMPLE EXAMINER ) Arrival Mode Ambulatory,Cane Transfer Assistance None [...] Recorded Date Recorded By Document 09/25/22 14:25 [facility] [id number] 09/25/22 14:32 [facility] 09/25/22 14:25 Wound Center Nurse 1 [...] Date Recorded By Document 09/25/22 14:42 DORA [id number] 09/25/22 14:51 DORA 09/25/22 14:42 Wound Center [...] Disc -Expiration Date 06/20/27 -Product Lot Number [id number] -Percent Used 100 -Lot number of Saline Used [id number] -Bleeding Controlled with Pressure -Treatment Response Procedure [...] Date Recorded By Document 09/25/22 14:52 DORA [id number] 09/25/22 14:53 DORA 09/25/22 14:52 Wound Care [...] 1317 <Electronically signed by Bonny Glynn NP FAMILY NURSE-C> Cosigner Signature (if applicable): CC: ~ Signed [facility] Work Phone: [phone] Progress note Author Bonny Glynn [facility] October 03, 2022 4:49pm Note Date/Time October 02, 2022 2:57pm [facility] [address] [place] [address] Progress Note - Wound Care 10/02/22 1457 MR#: [id number] Acct: [id number] Name: PEDRO HILLMAN Rep #:[id number] : 1945 77 From: Bonny Gillis FAMILY NURSE FAMILY NURSE-C PCP: Dr. Tonio Fajardo, DO Status:REG RCR Location: History of Present Illness Date of Service: 10/02/22 Chief Complaint: right foot ulcer History of Wound: This 77-year-old male returns to the wound healing clinic for reoccurrence of a right medial foot ulcer. Wound care has been Moistened Cass covered with [place] SAP dressing. Patient diabetic neuropathic. Patient dealing [...] 10/02/22 13:28 10/02/22 13:28 10/02/22 13:28 10/02/22 13:09/25/22 14:25 Oxygen Delivery Method Room Air Charges/Coding Visit Charges Office Visits / Consults: 88197 OV L3 Est (25 modifier) Procedures Integumentary 150xxx-152xx: 21266 Skin sub graft face/nk/hf/g Physical Exam Const [...] Recorded Date Recorded By Document 09/25/22 14:25 [facility] [id number] 09/25/22 14:32 [facility] Document 10/02/22 13:28 ML [id number] 10/02/22 13:32 ML 09/25/22 10/02/22 14:25 13:28 - Today's Visit Information Type of service Follow-up Visit Follow-up Visit (Physician/SAMPLE EXAMINER (Physician/SAMPLE EXAMINER ) ) Arrival Mode Ambulatory,Cane Cane Transfer [...] Recorded Date Recorded By Document 09/25/22 14:25 [facility] [id number] 09/25/22 14:32 [facility] Document 10/02/22 13:28 ML [id number] 10/02/22 13:32 ML 09/25/22 10/02/22 14:25 13:28 [...] Recorded Date Recorded By Document 09/25/22 14:42 [id number] 09/25/22 14:51 Document 10/02/22 14:14 [id number] 10/02/22 14:17 09/25/22 10/02/22 14:42 14:14 Wound [...] -Expiration Date 06/20/27 05/20/27 -Product Lot Number [id number] -Percent Used 100 100 -Lot number of Saline Used [id number] -Bleeding Controlled with Pressure Pressure -Treatment Response [...] Recorded Date Recorded By Document 09/25/22 14:52 [id number] 09/25/22 14:53 Document 10/02/22 14:18 [id number] 10/02/22 14:19 09/25/22 10/02/22 14:52 14:18 Wound [...] 1649 <Electronically signed by Bonny Glynn NP FAMILY NURSE-C> Cosigner Signature (if applicable): CC: ~ Signed [facility] Work Phone: [phone]) 496-574601-10-2023 Progress note Author Bonny Glynn [facility] August 29, 2022 3:36pm Note Date/Time August 29, 2022 2 :32pm [facility] [address] [place] [address] Progress Note - Wound Care 08/29/22 1429 MR#: [id number] Acct: [id number] Name: PEDRO HILLMAN Rep #:[id number] : 1945 77 From: Bonny Gillis FAMILY NURSE FAMILY NURSE-C PCP: Dr. Tonio Fajardo, DO Status:REG RCR Location: History of Present Illness Date of Service: 08/29/22 Chief Complaint: right foot ulcer History of Wound: This 77-year-old male returns to the wound healing clinic for reoccurrence of a right medial foot ulcer. Wound care has been Moistened [place] covered with [place] SAP dressing. Patient diabetic neuropathic. Patient dealing [...] Method Room Air Charges/Coding Procedures Integumentary 111xxx-113xx: 30848 Mihaela subq tissue 20 sq cm/< Debridement [...] Recorded Date Recorded By Document 08/29/22 13:17 [facility] [id number] 08/29/22 13:22 [facility] 08/29/22 13:17 WC - Today's Visit Information Type of service Follow-up Visit (Physician/SAMPLE EXAMINER ) Arrival Mode Ambulatory,Cane Transfer Assistance None [...] Recorded Date Recorded By Document 08/29/22 13:17 [facility] [id number] 08/29/22 13:22 [facility] 08/29/22 13:17 Wound Center Nurse 1 [...] Recorded Date Recorded By Document 08/29/22 13:35 [id number] 08/29/22 13:40 08/29/22 13:35 Wound Center Nurse [...] Date Recorded By Document 08/29/22 13:47 DL [id number] 08/29/22 13:47 DL 08/29/22 13:47 Wound Care [...] help expedite wound healing. [facility] Epifix. Wound care - Silvercel as the primary dressing covered with [place] SAP (secondarydressing) daily after washing foot with [...] if develop any questions or concerns. 08/29/22 6266 <Electronically signed by Bonny Glynn NP FAMILY NURSE-C> Cosigner Signature (if applicable): CC: ~ Signed [facility] Work Phone: [phone]) 156-993912-16-2022 Miscellaneous Notes* Telephone Encounter - Liseth Ortiz Ma - 08/04/2022 9:59 AM EST Pt PCP outside [facility]. Call to pt and notified him of Providers message. Pt states that he did talk tohim. FYI. Liseth Ortiz Ma * Telephone Encounter - Steven Melgar APRN.CNP - 07/28/2022 1:43 PM EST In reviewing patient's chart I do not see that he has had any follow up done in regards to his actionable chest xray finding. I left a message on patient's voicemail for him to call back and advise. Steven Melgar APRN.CNP documented in this encounterThe [facility]08-20-2022 Miscellaneous Notes* Telephone Encounter - Jenny Mock - 04/08/2022 2:56 PM EDT Notified pt of results, daughter will call to get information on restrictions. Jenny Allie * Telephone Encounter - Jenny Mock - 04/08/2022 9:18 AM EDT left message on machine to give call back, different number from pharmacy. [phone]. Jenny Mock * Telephone Encounter - Jenny Mock - 04/07/2022 5:48 PM EDT Unable to reach patient. Mailbox full/Mailbox not set up/ Number incorrect. Please try again later. Jenny Mock * Telephone Encounter - Sigrid Monroe LPN - 04/06/2022 6:48 PM EDT Still unable to reach patient and blocker and cutter contact lens is spouse with same number.Sigrid Monroe LPN [...] symptoms; ER if severe. documented in this encounterThe [facility]08-[facility]-2022 NoteHNO ID: [id number] Author: Steven Melgar APRN.SAMPLE EXAMINER Service: ? Author Type: Nurse Practitioner Type: [...] Z20.822 - COVID WITH FLUA+B, ROUTINE Steven Melgar APRN.[facility]08-17-2022 NoteHNO ID: [id number] Author: RT Jose Eduardo(R) Service: Nuclear Medicine [...] Yuliana Olivera RT(R) April 05, 2022 1:55 [facility]08-17-2022 Influenza virus A and B RNA and SARS-CoV-2 (COVID-19) N gene panel BRYAN+probe (Resp)COVID 19 RESULT: SARS-CoV-2 (Agent of COVID-19) Detected by RT-PCR or equivalent method. anatoly ERXE-RbC-4_[employer]uz[employer] (YASMEEN)_EUA This test was developed and its performance characteristics determined by [facility]'s RobertJ. Thomaspending sale to [facility] [place]. This test has been authorized by FDA under an Emergency Use Authorization (EUA). This test has been validated in accordance with the FDA's Guidance Document Policy for DiagnosticsTesting in Laboratories Certified to Perform High Complexity Testing under CLIA prior to Emergency use Authorization for Coronavirus Disease 2019 during the Public Health Emergency issued on October 18, 2019. Test performed by [facility], [facility] [place], [address] [place] [address]. INFLUENZA A PCR: Negative for Influenza A by RT-PCR INFLUENZA B PCR: Negative for Influenza B by RT-PCRBarney Children'S Medical CenterComment on above: Performed By: #### [id number] #### [facility] CLIA [id number] [address] [place] [address] [place] [id number] Miscellaneous Notes* Telephone Encounter - Steven Melgar APRN.SAMPLE EXAMINER - 04/05/2022 2:58 PM EDT Radiology report faxed to patient's PCP Dr. Tonio Fajardo at [phone]. Confirmation of fax received. Patient was advised to call Dr. Fajardo today for a follow up appointment. Steven Melgar APRN.CNP documented in this encounterThe [facility]08-17-2022 Instructions* Patient Instructions* Steven Melgar APRN.CNP - 04/05/2022 2:25 PM EDT ASSESSMENT/PLAN: [...] ICD10: Z20.822 - COVID WITH FLUA+B, ROUTINE Stveen Melgar APRN.CNP documented in this encounterThe [facility]08-17-2022 History of Present illness Narrative* Steven Melgar APRN.CNP - 04/05/2022 2:03 PM EDT Subjective [...] Z20.822 - COVID WITH FLUA+B, ROUTINE Steven Melgar APRN.SAMPLE EXAMINER documented in this encounterThe [facility]08-17-2022 History of Present illness Narrative* Yuliana Olivera, [...] 05, 2022 1:55 PM documented in this encounterThe University Of Toledo Medical CenterConsult note Author Mala Sterling [facility] Note Date/Time March 09, 2025 2:58 pm [facility] Medical Records Department [address] [place] [address] Counseling Note - Pharmacy 03/09/25 1457 MR#: [id number] Acct: [id number] Name: PEDRO HILLMAN Rep #:[id number] : 1945 80 From: Mala Sterling PCP: Dr. Tonio Fajardo, DO Status:ADM IN [facility] Counsel[facility] Pharmacy Service has performed discharge [...] DAILY@1730 30 days #30 caps 03/09/25 03/09/25 4609 <Electronically signed by Mala Sterling> Date _ Mala Sepulvedaign Signature (if applicable): Date CC: ~ Signed [facility] Work Phone: Discharge summary Author Casper Iniguez [facility] Note Date/Time April 19, 2025 10 :43am [facility] Medical Records Department [address] [place] [address] Emergency Department Summary 04/19/25 MR#: [id number] Acct: [id number] Name: PEDRO HILLMAN Nora Rep #:[id number] : 1945 80 From: Casper Pyle PCP: Dr. Tonio Fajardo, DO Status:REG ER Location: ED HPI History of Present Illness Chief Complaint: Syncope [facility] Medical History Presence of cardiac pacemaker Peripheral arterial disease Other persistent atrial fibrillation New onset atrial flutter COVID Wears hearing aid in both ears Former smoker Coronary artery disease Peripheral vascular occlusive disease BPH (benign prostatic hyperplasia) Chronic kidney disease, stage 3 Atherosclerosis of coronary artery of ewiiaapaayp heart without angina pectoris Hyperlipidemia Lower extremity [...] hr (Mucinex) #20 tabs OXYGEN - Supplemental ([facility] 04/09/25 Unknown History INFORMATIONAL USE ONLY) [...] Notes his pacemaker was placed recently at [facility]. Denies any pain over pacemaker site. REVIEW [...] records reviewed: Pacemaker was placed here with [facility] on 04/09/[address] Hsu [...] - Noted patient safe to stay at [facility]. States he should be able to evaluate [...] to PCU This note was generated with [employer] dictation software. It may contain incorrectwords, spelling, [...] 75.0 H Lymph % (Auto) 9.1 L Bladen % (Auto) 11.3 H Eos % (Auto) [...] CHF compared to x-ray 04/12/2025. Reading Location: [facility] Discharge Plan Triage Chief Complaint: Syncope ED [...] Qty: 60 0RF (DME) OXYGEN - Supplemental ([facility] INFORMATIONAL USE ONLY) Gas See Rx [...] [Primary Care Provider] - Print Language: German What to do if you have Problems For any increased pain, shortness of breath, bleeding, nausea or vomiting, chestpain, or any unexpected problems, contact your Primary Care Provider. Call [facility] ([phone]) or report to the closest Emergency Room. Call 911 if necessary. 04/19/25 1043 <Electronically signed by Casper nIiguez DO> Cosigner Signature (if applicable): CC: Dr. Tonio Fajardo DO ~ Signed [facility] Work Phone: Discharge summary Author Tonio Mccallum [facility] Note Date/Time April 23, 2025 5:03pm [facility] Medical Records Department [address] [place] [address] Transfer to [facility] MR#: [id number] Acct: [id number] Name: PEDRO HILLMAN Rep #:[id number] : 1945 80 From: Tonio Mccallum DO PCP: Dr. Tonio Fajardo DO Status:ADM IN Certification of patient admission REQUIRED AT TIME OF ADMISSION. I CERTIFY THAT POST-HOSPITAL ECF SERVICES ARE REQUIRED TO BE GIVEN ON AN IN-PATIENT BASIS BECAUSE OF THE ABOVE NAMED PATIENT'S NEED FOR RETIREMENT CARE ON A CONTINUING BASIS FOR THE CONDITION(S) FOR WHICH HE/SHE WAS RECEIVING IN-PATIENT HOSPITAL SERVICES PRIOR TO HIS/HER TRANSFER TO THE [facility]. 04/23/25 1703<Electronically signed by Tonio Mccallum DO> [...] med Pass. [facility]al [facility] Total clinical time spent by myself addressing [...] mg PO DAILY (DME) OXYGEN - Supplemental ([facility] INFORMATIONAL USE ONLY) Gas See Rx Instructions .ROUTE Patient Comments: 2 lpm at rest, 3 lpm on exertion, 2 lpm at HS DME company: [employer] Rx Instructions: As directed ipratropium-albuterol 0.5 mg-3 [...] in before D/C Order can be placed): Care Home Facility 04/23/25 1703 <Electronically signed by Tonio Mccallum DO> Cosigner Signature (if applicable): CC: Dr. Kwaku Narayanan DO; Dr. 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 Venous insufficiency chronic Ulcer of right foot with fat layer exposed resolved Malnutrition chronic 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 Venous insufficiency chronic Ulcer of right foot with fat layer exposed resolved [facility] Work Phone: Evaluation note* Diagnosis Onset Date [...] right foot with fat layer exposed resolved [facility] Work Phone: Evaluation note* Diagnosis Onset Date [...] 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 [facility] Work Phone: Evaluation note* Diagnosis Onset Date [...] right foot with fat layer exposed resolved [facility] Work Phone: Evaluation note* Diagnosis Burning with urination- Primary Dysuria Acute cough Suspected COVID-19 virus infection documented in this encounter [facility]* Diagnosis Onset Date Resolution [...] acute Nicotine dependence, cigarettes, in remission acute [facility] Work Phone: Evaluation note* Diagnosis Onset Date [...] right foot with fat layer exposed resolved [facility] Work Phone: Evaluation note* Diagnosis Onset Date [...] right foot with fat layer exposed resolved [facility] Work Phone: Evaluation note* Diagnosis Onset Date [...] of upper lobe of right lung acute [facility] Work Phone: Evaluation note* Diagnosis Onset Date [...] of upper lobe of right lung acute [facility] Work Phone: Evaluation note* Diagnosis Onset Date [...] of upper lobe of right lung acute [facility] Work Phone: Evaluation note* Diagnosis Onset Date [...] 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 [facility] Work Phone: Evaluation note* Diagnosis Onset Date [...] right foot with fat layer exposed chronic [facility] Work Phone: Evaluation note* Diagnosis Onset Date [...] right foot with fat layer exposed chronic [facility] Work Phone: Evaluation note* Diagnosis Onset Date [...] layer exposed chronic Shortness of breath chronic [facility] Work Phone: Evaluation note* Diagnosis Onset Date [...] of upper lobe of right lung chronic [facility] Work Phone: Evaluation note* Diagnosis Onset Date [...] of upper lobe of right lung chronic [facility] Work Phone: Evaluation note* Diagnosis Onset Date [...] right foot with fat layer exposed chronic [facility] Work Phone: Evaluation note* Diagnosis Onset Date [...] right foot with fat layer exposed chronic [facility] Work Phone: Evaluation note* Diagnosis Onset Date [...] right foot with fat layer exposed chronic [facility] Work Phone: Evaluation note* Diagnosis Onset Date [...] right foot with fat layer exposed chronic [facility] Work Phone: Evaluation note* Diagnosis Onset Date [...] right foot with fat layer exposed chronic [facility] Work Phone: Evaluation note* Diagnosis Onset Date [...] right foot with fat layer exposed resolved [facility] Work Phone: Evaluation note* Diagnosis Onset Date [...] right foot with fat layer exposed chronic [facility] Work Phone: Evaluation note* Diagnosis Onset Date [...] of upper lobe of right lung chronic [facility] Work Phone: Evaluation note* Diagnosis Onset Date Resolution Status Irregular heart rate acute COPD (chronic obstructive pulmonary disease) chronic 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 Other persistent atrial fibrillation acute Hyperlipidemia chronic Hypertension chronic 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 Plenty of fluids and rest today do not get dehydrated. Return if you are feeling a lot worse or too weak to get around her house. Follow-up with your doctor in the next several days to ensure you are improving. [facility] Work Phone: Hospital Discharge instructions Additional Instructions 1. Keep your postoperative dressing clean dry and intact 2. Continue strict glycemic control. 3. Partial weightbearing to heel with surgical shoe, use walker or crutches 4. Reach out to Dr. Suárez with any questions or concerns and follow-up in 1 week in clinic. Implant [facility]?: [facility]: Reason for referral (narrative)No reason [...] 04 7:57pm Atherosclerosis of coronary artery of ewiiaapaayp heart without angina pectoris March 04, 2025 [...] 2025 7:57pm Atherosclerosis of coronary artery of ewiiaapaayp heart without angina pectoris March 04, 2025 [...] 15, 2025 4:56 pm 6 M FU/S/P [facility] 03/09March 17, 2025 12: 51pm Reason [...] 2025 7:57pm Atherosclerosis of coronary artery of ewiiaapaayp heart without angina pectoris March 04, 2025 [...] 15, 2025 4:56 pm 6 M FU/S/P [facility] 03/09March 17, 2025 12: 51pm atrial [...] 15, 2025 4:56 pm 6 M FU/S/P [facility] 03/09March 17, 2025 12: 51pm atrial [...] 2025 7:57pm Atherosclerosis of coronary artery of ewiiaapaayp heart without angina pectoris March 04, 2025 [...] 15, 2025 4:56 pm 6 M FU/S/P [facility] 03/09March 17, 2025 12: 51pm atrial [...] 2025 7:57pm Atherosclerosis of coronary artery of ewiiaapaayp heart without angina pectoris March 04, 2025 7:57pm CHF exacerbation March 04, 2025 7:57 pm Hypertension March 04, 2025 7:57 pm Peripheral arterial disease March 04 7:57pm Other persistent atrial fibrillation Feb 12:51pm [...] 15, 2025 4:56 pm 6 M FU/S/P [facility] 03/09March 17, 2025 12: 51pm atrial [...] 15, 2025 4:56 pm 6 M FU/S/P [facility] 03/09March 17, 2025 12: 51pm atrial [...] 2025 7:57pm Atherosclerosis of coronary artery of ewiiaapaayp heart without angina pectoris March 04, 2025 [...] 6:33pm Pleural effusion on right April 10, 025 6:33pm Tachy-brittany syndrome April 10, 2025 [...] 15, 2025 4:56 pm 6 M FU/S/P [facility] 03/09March 17, 2025 12: 51pm atrial [...] 15, 2025 4:56 pm 6 M FU/S/P [facility] 03/09March 17, 2025 12: 51pm atrial [...] 2025 7:57pm Atherosclerosis of coronary artery of ewiiaapaayp heart without angina pectoris March 04, 2025 [...] 15, 2025 4:56 pm 6 M FU/S/P [facility] 03/09March 17, 2025 12: 51pm atrial [...] 15, 2025 4:56 pm 6 M FU/S/P [facility] 03/09March 17, 2025 12: 51pm atrial [...] 2025 7:57pm Atherosclerosis of coronary artery of ewiiaapaayp heart without angina pectoris March 04, 2025 [...] 6:33pm DARIUSZ (acute kidney injury) April 10, 025 6:33pm Tachy-brittany syndrome April 10, 2025 [...] 17, 2025 6 :19pm Orthostatic hypotension April 20, 2 025 1:48pm Syncope April 20, 2025 1:48pm Chief Complaint Admit Date AE CHF, ATRIAL [...] 15, 2025 4:56 pm 6 M FU/S/P [facility] 03/09March 17, 2025 12: 51pm atrial [...] 2025 6:02pm PNEUMONIA & HYDROPNEUMOTHORAX March 6:19pm Pacer Check Remote April 19, 2025 8: 35am PRESYNCOPAL SYMPTOMS W/POSITIVE ORTHOSTA TICS April 19, 2025 10:31am PRESYNCOPAL SYMPTOMS W/POSITIVE ORTHOSTA TICS April 20, 2025 1:48pm PRESYNCOPAL SYMPTOMS W/POSITIVE ORTHOSTA TICS April 20, 2025 6:11pm PRESYNCOPAL SYMPTOMS W/POSITIVE ORTHOSTA TICS April 21, 2025 7:11pm PRESYNCOPAL SYMPTOMS W/POSITIVE ORTHOSTA TICS April 23, 2025 3:12pm SYNCOPE April 23, 2025 7:21pm Reason for Visit Admit Date Acute cystitis [...] 2025 7:57pm Atherosclerosis of coronary artery of ewiiaapaayp heart without angina pectoris March 04, 2025 [...] (acute kidney injury) April 05, 025 7:55pm Hyperkalemia April 05, 2025 7: [...] 17, 2025 6 :19pm Orthostatic hypotension April 20, 2 025 1:48pm Syncope April 20, 2025 1:48pm (HFpEF) heart failure with preserved eje ction fraction April 23, 2025 7:21pm Atrial fibrillation April 23, 2025 7:21pm BPH (benign prostatic hyperplasia) Septe [id number] 7:21pm Debility April 23, 2025 7:21pm Dehydration April 23, 2025 7:21pm PAOD (peripheral arterial occlusive dise ase) April 23, 2025 7:21pm Recurrent right pleural effusion Septemb 2024 7:21pm Type 2 diabetes mellitus with hyperglyce alecia April 23, 2025 7:21pm COPD (chronic obstructive pulmonary dise ase) April 23, 2025 7:21pm Hyperlipidemia April 23, 2025 7:21pm Tachy-brittany syndrome April 23, 2025 7:21pm Orthostatic hypotension April 23, 2 025 7:21pm Syncope April 23, 2025 7:21pm Chief Complaint Admit Date AE CHF, ATRIAL [...] 15, 2025 4:56 pm 6 M FU/S/P [facility] 03/09March 17, 2025 12: 51pm atrial [...] 2025 6:02pm PNEUMONIA & HYDROPNEUMOTHORAX March 6:19pm Pacer Check Remote April 19, 2025 8: 35am PRESYNCOPAL SYMPTOMS W/POSITIVE ORTHOSTA TICS April 19, 2025 10:31am PRESYNCOPAL SYMPTOMS W/POSITIVE ORTHOSTA TICS April 20, 2025 1:48pm PRESYNCOPAL SYMPTOMS W/POSITIVE ORTHOSTA TICS April 20, 2025 6:11pm PRESYNCOPAL SYMPTOMS W/POSITIVE ORTHOSTA TICS April 21, 2025 7:11pm PRESYNCOPAL SYMPTOMS W/POSITIVE ORTHOSTA TICS April 23, 2025 3:12pm SYNCOPE April 23, 2025 7:21pm 10 DAY WOUND CHECK April 28, 2025 10:17am Reason for Visit Admit Date Acute cystitis [...] 2025 7:57pm Atherosclerosis of coronary artery of ewiiaapaayp heart without angina pectoris March 04, 2025 [...] 17, 2025 6 :19pm Orthostatic hypotension April 20, 2 025 1:48pm Syncope April 20, 2025 1:48pm (HFpEF) heart failure with preserved eje ction fraction April 23, 2025 7:21pm Atrial fibrillation April 23, 2025 7:21pm BPH (benign prostatic hyperplasia) Septe [id number] 7:21pm Debility April 23, 2025 7:21pm Dehydration April 23, 2025 7:21pm PAOD (peripheral arterial occlusive dise ase) April 23, 2025 7:21pm Recurrent right pleural effusion Septemb 2024 7:21pm Type 2 diabetes mellitus with hyperglyce alecia April 23, 2025 7:21pm COPD (chronic obstructive pulmonary dise ase) April 23, 2025 7:21pm Hyperlipidemia April 23, 2025 7:21pm Tachy-brittany syndrome April 23, 2025 7:21pm Orthostatic hypotension April 23 025 7:21pm Syncope April 23, 2025 7:21pm Heart block AV complete April 28 025 10:17am Presence of cardiac pacemaker April 28, 2025 10:17am Chief Complaint Admit Date AE CHF, ATRIAL [...] 15, 2025 4:56 pm 6 M FU/S/P [facility] 03/09March 17, 2025 12: 51pm atrial [...] 2025 6:02pm PNEUMONIA & HYDROPNEUMOTHORAX March 6:19pm Pacer Check Remote April 19, 2025 8: 35am PRESYNCOPAL SYMPTOMS W/POSITIVE ORTHOSTA TICS April 19, 2025 10:31am PRESYNCOPAL SYMPTOMS W/POSITIVE ORTHOSTA TICS April 20, 2025 1:48pm PRESYNCOPAL SYMPTOMS W/POSITIVE ORTHOSTA TICS April 20, 2025 6:11pm PRESYNCOPAL SYMPTOMS W/POSITIVE ORTHOSTA TICS April 21, 2025 7:11pm PRESYNCOPAL SYMPTOMS W/POSITIVE ORTHOSTA TICS April 23, 2025 3:12pm SYNCOPE April 23, 2025 7:21pm Pacer Check Remote April 28, 2025 9:00am 10 DAY WOUND CHECK April 28, 2025 10:17am Reason for Visit Admit Date Acute cystitis [...] 2025 7:57pm Atherosclerosis of coronary artery of ewiiaapaayp heart without angina pectoris March 04, 2025 7:57pm CHF exacerbation March 04, 2025 7:57 pm Hypertension March 04, 2025 7:57 pm Acute on chronic diastolic congestive he art failure March 04, 2025 7:57pm Hyperkalemia March 04, 2025 7:57 pm Peripheral arterial disease March 04 7:57pm Other persistent atrial fibrillation Feb 12:51pm [...] 6:33pm DARIUSZ (acute kidney injury) April 10, 025 6:33pm Tachy-brittany syndrome April 10, 2025 [...] 17, 2025 6 :19pm Orthostatic hypotension April 20, 2 025 1:48pm Syncope April 20, 2025 1:48pm (HFpEF) heart failure with preserved eje ction fraction April 23, 2025 7:21pm Atrial fibrillation April 23, 2025 7:21pm BPH (benign prostatic hyperplasia) Septe mber 2024 7:21pm Debility April 23, 2025 7:21pm Dehydration April 23, 2025 7:21pm PAOD (peripheral arterial occlusive dise ase) April 23, 2025 7:21pm Recurrent right pleural effusion Septemb 2024 7:21pm Type 2 diabetes mellitus with hyperglyce alecia April 23, 2025 7:21pm COPD (chronic obstructive pulmonary dise ase) April 23, 2025 7:21pm Hyperlipidemia April 23, 2025 7:21pm Tachy-brittany syndrome April 23, 2025 7:21pm Orthostatic hypotension April 23 025 7:21pm Syncope April 23, 2025 7:21pm Heart block AV complete April 28 025 10:17am Presence of cardiac pacemaker April 28, 2025 10:17am Atrial fibrillation May 04, 2025 2:41pm Advance Directives No Advanced Directives Records Found Advance Directive Response Recorded Date/ Time Advance Directives No February 17 4 11:03am Living Will No February 17, 2014 1 1:03am Power of Makeup Sales Advisor No February 17, 2014 11:03am Advance Directive Response Recorded Date/ Time Name of Medical Power of Makeup Sales Advisor SON April 14, 2022 8:29am Advance Directives No February 17 4 11:03am Living Will No April 14 8:29am Power of Makeup Sales Advisor Yes April 14 8:29am Advance Directive Response Recorded Date/ Time Name of Medical Power of Makeup Sales Advisor SON April 14, 2022 7:29am Advance Directives No February 17 4 10:03am Living Will No April 14 2 7:29am Power of Makeup Sales Advisor Yes April 14 7:29am Advance Directive Response Recorded Date/ Time Advance Directives No February 17 4 10:03am Living Will No April 14 2 7:29am Power of Makeup Sales Advisor Yes April 14 7:29am Advance Directive Response Recorded Date/ Time Advance Directives No February 17 4 11:03am Living Will No April 14 2 8:29am Power of Makeup Sales Advisor Yes April 14 8:29am Advance Directive Response Recorded Date/ Time Name of Medical Power of Makeup Sales Advisor Gideon Calderon December 30, 2022 10:39pm Advance Directives No February 17 4 11:03am Living Will Yes December 30, 2022 1 0:39pm Power of Makeup Sales Advisor Yes December 30, 2022 10:39pm Advance Directive Response Recorded Date/ Time Advance Directives No February 17 4 11:03am Living Will Yes December 30, 2022 1 0:39pm Power of Makeup Sales Advisor Yes December 30, 2022 10:39pm Advance Directive Response Recorded Date/ Time Advance Directives No February 17 4 10:03am Living Will Yes December 30, 2022 9 :39pm Power of Makeup Sales Advisor Yes December 30, 2022 9:39pm Advance Directive Response Recorded Date/ Time Living Will Yes December 30, 2022 1 0:39pm Power of Makeup Sales Advisor Yes December 30, 2022 10:39pm Advance Directives No February 17 11:03am Advance Directive Response Recorded Date/ Time Living Will Yes December 30, 2022 1 0:39pm Do you have a Healthcare Power of Makeup Sales Advisor? Yes December 30, 2022 10:39pm Living Will No April 14 8:29am Do you have a Healthcare Power of Makeup Sales Advisor? Yes April 14, 2022 8:29am Advance Directives No February 17 11:03am Advance Directive Response Recorded Date/ Time Living Will No April 14 8:29am Do you have a Healthcare Pow er of Makeup Sales Advisor? Yes April 14, 2022 8:29am Do you have a Healthcare Pow er of Makeup Sales Advisor? Yes March 04, 2025 2:58pm Name of Medical Power of Makeup Sales Advisor Ed Daja olmstaed March 04, 2025 2:58pm Advance Directives No February 17 11:03am Advance Directive Response Recorded Date/ Time Do you have a Healthcare Power of Makeup Sales Advisor? Yes March 04, 2025 9:11pm Name of Medical Power of Makeup Sales Advisor Ed Daja olmstead March 04, 2025 2:58pm Advance Directives No February 17 11:03am Advance Directive Response Recorded Date/ Time Do you have a Healthcare Power of Makeup Sales Advisor? Yes March 04, 2025 9:11pm Name of Medical Power of Makeup Sales Advisor Ed Daja olmstead March 04, 2025 2:58pm Do you have a Healthcare Power of Makeup Sales Advisor? Yes March 15, 2025 5:04pm Name of Medical Power of Makeup Sales Advisor Ed Daja March 15, 2025 5:04pm Advance Directives No February 17 11:03am Advance Directive Response Recorded Date/ Time Do you have a Healthcare Pow er of Makeup Sales Advisor? Yes March 04, 2025 9:11pm Name of Medical Power of Makeup Sales Advisor Ed Daja olmstead March 04, 2025 2:58pm Do you have a Healthcare Pow er of Makeup Sales Advisor? Yes April 05, 2025 4:49pm Do you have a Healthcare Pow er of Makeup Sales Advisor? Yes March 15, 2025 5:04pm Name of Medical Power of Makeup Sales Advisor Ed Daja March 15, 2025 5:04pm Advance Directives No February 17 11:03am Advance Directive Response Recorded Date/ Time Do you have a Healthcare Pow er of Makeup Sales Advisor? Yes March 04, 2025 9:11pm Name of Medical Power of Makeup Sales Advisor Ed aDja olmstead March 04, 2025 2:58pm Do you have a Healthcare Pow er of Makeup Sales Advisor? Yes April 05, 2025 8:49pm Do you have a Healthcare Pow er of Makeup Sales Advisor? Yes March 15, 2025 5:04pm Name of Medical Power of Makeup Sales Advisor Ed Daja March 15, 2025 5:04pm Advance Directives No February 17 11:03am Advance Directive Response Recorded Date/ Time Do you have a Healthcare Pow er of Makeup Sales Advisor? Yes March 04, 2025 9:11pm Name of Medical Power of Makeup Sales Advisor Ed Daja olmstead March 04, 2025 2:58pm Do you have a Healthcare Pow er of Makeup Sales Advisor? Yes April 05, 2025 8:49pm Do you have a Healthcare Pow er of Makeup Sales Advisor? Yes April 12, 2025 6:18pm Do you have a Healthcare Pow er of Makeup Sales Advisor? Yes March 15, 2025 5:04pm Name of Medical Power of Makeup Sales Advisor Ed Daja March 15, 2025 5:04pm Do you have a Healthcare Pow er of Makeup Sales Advisor? Yes April 10, 2025 10:00pm Advance Directives No February 17 11:03am Advance Directive Response Recorded Date/ Time Do you have a Healthcare Pow er of Makeup Sales Advisor? Yes March 04, 2025 9:11pm Name of Medical Power of Makeup Sales Advisor Ed Daja olmstead March 04, 2025 2:58pm Do you have a Healthcare Pow er of Makeup Sales Advisor? Yes April 05, 2025 8:49pm Do you have a Healthcare Pow er of Makeup Sales Advisor? Yes April 12, 2025 6:18pm Do you have a Healthcare Pow er of Makeup Sales Advisor? Yes March 15, 2025 5:04pm Name of Medical Power of Makeup Sales Advisor Ed Daja March 15, 2025 5:04pm Do you have a Healthcare Pow er of Makeup Sales Advisor? Yes April 10, 2025 10:00pm Do you have a Healthcare Pow er of Makeup Sales Advisor? Yes April 17, 2025 6:20pm Name of Medical Power of Makeup Sales Advisor Ed Daja April 17, 2025 6:20pm Do you have a Healthcare Pow er of Makeup Sales Advisor? Yes April 19, 2025 8:42am Advance Directives No February 17 11:03am Advance Directive Response Recorded Date/ Time Do you have a Healthcare Pow er of Makeup Sales Advisor? Yes March 04, 2025 9:11pm Name of Medical Power of Makeup Sales Advisor Ed Daja olmstead March 04, 2025 2:58pm Do you have a Healthcare Pow er of Makeup Sales Advisor? Yes April 05, 2025 8:49pm Do you have a Healthcare Pow er of Makeup Sales Advisor? Yes April 12, 2025 6:18pm Do you have a Healthcare Pow er of Makeup Sales Advisor? Yes March 15, 2025 5:04pm Name of Medical Power of Makeup Sales Advisor Ed Daja March 15, 2025 5:04pm Do you have a Healthcare Pow er of Makeup Sales Advisor? Yes April 10, 2025 10:00pm Do you have a Healthcare Pow er of Makeup Sales Advisor? Yes April 17, 2025 6:20pm Name of Medical Power of Makeup Sales Advisor Ed Daja April 17, 2025 6:20pm Do you have a Healthcare Pow er of Makeup Sales Advisor? Yes April 19, 2025 12:14pm Advance Directives No February 17 11:03am Advance Directive Response Recorded Date/ Time Do you have a Healthcare Pow er of Makeup Sales Advisor? Yes March 04, 2025 9:11pm Name of Medical Power of Makeup Sales Advisor Ed Daja olmstead March 04, 2025 2:58pm Do you have a Healthcare Pow er of Makeup Sales Advisor? Yes April 05, 2025 8:49pm Do you have a Healthcare Pow er of Makeup Sales Advisor? Yes April 12, 2025 6:18pm Do you have a Healthcare Pow er of Makeup Sales Advisor? Yes March 15, 2025 5:04pm Name of Medical Power of Makeup Sales Advisor Ed Shmuelkwasi March 15, 2025 5:04pm Do you have a Healthcare Pow er of Makeup Sales Advisor? Yes April 10, 2025 10:00pm Do you have a Healthcare Pow er of Makeup Sales Advisor? Yes April 17, 2025 6:20pm Name of Medical Power of Makeup Sales Advisor Ed Shmuelkwasi April 17, 2025 6:20pm Do you have a Healthcare Pow er of Makeup Sales Advisor? Yes April 19, 2025 12:14pm Do you have a Healthcare Pow er of Makeup Sales Advisor? Yes April 24, 2025 3:42pm Name of Medical Power of Makeup Sales Advisor paula Sky April 24, 2025 3:42pm Advance Directives No February 17 11:03am Advance Directive Response Recorded Date/ Time Do you have a Healthcare Pow er of Makeup Sales Advisor? Yes March 04, 2025 9:11pm Name of Medical Power of Makeup Sales Advisor Ed Daja johnnie aysha March 04, 2025 2:58pm Do you have a Healthcare Pow er of Makeup Sales Advisor? Yes April 05, 2025 8:49pm Do you have a Healthcare Pow er of Makeup Sales Advisor? Yes April 12, 2025 6:18pm Do you have a Healthcare Pow er of Makeup Sales Advisor? Yes May 04, 2025 1:30pm Do you have a Healthcare Pow er of Makeup Sales Advisor? Yes March 15, 2025 5:04pm Name of Medical Power of Makeup Sales Advisor Ed Shmuelkwasi March 15, 2025 5:04pm Do you have a Healthcare Pow er of Makeup Sales Advisor? Yes April 10, 2025 10:00pm Do you have a Healthcare Pow er of Makeup Sales Advisor? Yes April 17, 2025 6:20pm Name of Medical Power of Makeup Sales Advisor Ed Shmuelkwasi April 17, 2025 6:20pm Do you have a Healthcare Pow er of Makeup Sales Advisor? Yes April 19, 2025 12:14pm Do you have a Healthcare Pow er of Makeup Sales Advisor? Yes April 24, 2025 3:42pm Name of Medical Power of Makeup Sales Advisor paula Syk April 24, 2025 3:42pm Advance Directives No February 17 11:03am Health [...] or prosecute any alcohol or drug abuse patient.[facility] the event this information is protected by the Federal Confidentiality of Alcohol and Drug Abuse Patient Records regulations: The Federal rules restrict any use of the information to criminally investigate or prosecute any alcohol or drug abuse patient.[facility] the event this information is protected by the Federal Confidentiality of Alcohol and Drug Abuse Patient Records regulations: The Federal rules restrict any use of the information to criminally investigate or prosecute any alcohol or drug abuse patient.[facility] the event this information is protected by the Federal Confidentiality of Alcohol and Drug Abuse Patient Records regulations: The Federal rules restrict any use of the information to criminally investigate or prosecute any alcohol or drug abuse patient.[facility] the event this information is protected by the Federal Confidentiality of Alcohol and Drug Abuse Patient Records regulations: The Federal rules restrict any use of the information to criminally investigate or prosecute any alcohol or drug abuse patient.[facility] Reason for Visit (unrecogniz ed section and content) Reason Comments Results Reason Comments Urinary Problem burning with urinati on x 1 week nasal congestion and drainage x 1 week Reason Comments Results COVID+ Reason Comments Patient Update Care Teams (unrecognized sec tion and content) Trade Show Manager Relationship Specialty Start Date End Date Tonio Fajardo DO [address] [place] [address] PCP - General Family Practice 04/05/22 Trade Show Manager Relationship Specialty Start Date End Date Scotty, Tonio Ovalle DO [address] [place] [address] PCP - General Family Practice 04/05/22 Trade Show Manager Relationship Specialty Start Date End Date Scotty, Tonio Ovalle [address] [place] [address] PCP - General Family Practice 04/05/22 Trade Show Manager Relationship Specialty Start Date End Date Tonio Fajardo DO [address] [place] [address] PCP - General Family Medicine 04/05/22 Team Status: Active Member Role Status Dates Dr. Tonio Fajardo DO Family Provider Active Dr. Tonio Fajardo DO Primary Care Provider Active Team Status: Inactive Member Role Status Dates Dr. Tonio Fajardo DO Primary Care ProviderJoelle Provider Active Iker Rodriguez FAMILY NURSE, FAMILY NURSE-C Attending Provider Active Team Status: Inactive Member [...] DO Primary Care Provider Active Bonny Glynn FAMILY NURSE, FAMILY NURSE-C Attending Pro vider, Referring Provider, Other Provider Active Team Status: Active Member Role Status Dates Dr. Tonio Fajardo DO Primary Care Provider Active Dr. Srini Choi , DO Attending Provider, Referring P rovider Active Team Status: Active Member Role Status Dates Dr. Tonio Fajrado DO Primary Care Provider Active Dr. Srini [...] DO Primary Care Provider Active Bonny Glynn FAMILY NURSE, FAMILY NURSE-C Attending Provider Active Team Status: Active Member Role Status Dates Dr. Tonio Fajardo DO Primary Care Provider Active Dr. Russ Zamora MD Attending Provider Active Team Status: Inactive Member Role Status Dates Dr. Tonio Fajardo DO Primary Care Provider Active Dr. Russ Zamora MD Attending Provider Active Team Status: Active Member Role Status Dates Dr. Tonio Fajardo DO Primary Care Provider Active Bonny Peresndell FAMILY NURSE, FAMILY NURSE-C Attending Provider Active Team Status: Inactive Member Role Status Dates Dr. Tonio Fajardo DO Primary Care Provider Active Bonny Pintoell FAMILY NURSE, FAMILY NURSE-C Attending Provider, Referri ng Provider Active Team Status: Inactive Member Role Status Dates Dr. Tonio Fajardo , DO Primary Care Provider, Referrin g Provider Active Dr. Tyrell Uriarte , DO Attending Provider Active Team Status: Active Member Role Status Dates Dr. Tonio Fajardo , DO Primary Care Provider Active Bonny Glynn FAMILY NURSE, FAMILY NURSE-C Attending Provider, Other P rovider Active Team [...] Provider, Referrin g Provider Active Bonny Glynn FAMILY NURSE, FAMILY NURSE-C Attending Provider Active Team Status: Inactive Member [...] Provider, Referrin g Provider Active Lorie Mart FAMILY NURSE, FAMILY NURSE-C Attending Provider Active Team Status: Inactive Member Role Status Dates Dr. Tonio Fajardo , DO Primary Care Provider, Referrin g Provider Active Leslie Arriaga PA, PA Attending Provider Active Team Status: Inactive Member Role Status Dates Dr. Tnoio Fajardo , DO Primary Care Provider Active Lorie Mart FAMILY NURSE, FAMILY NURSE-C Attending Provider, Referrin g Provider Active Team [...] Dr. 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 Tonio Fajardo DO Primary Care Provider Active Start: October 17, 2024 Lorie Mart FAMILY NURSE, FAMILY NURSE-C Referring Provider Active Start: October 17, 2024 Lorie Mart FAMILY NURSE, FAMILY NURSE-C Other Provider Active Start: October 17, 2024 [...] 2024 End: October 23, 2024 Lorie Mart FAMILY NURSE, FAMILY NURSE-C Attending Provider Active Start: October 23, 2024 [...] 2025 End: March 09, 2025 Iker Rodriguez FAMILY NURSE, FAMILY NURSE-C Other Provider Active Start : March 04, [...] Active Start: March 05, 2025 Iker Rodriguez FAMILY NURSE, FAMILY NURSE-C Other Provider Active Start : March 05, [...] Active Start: March 06, 2025 Iker Rodriguez FAMILY NURSE, FAMILY NURSE-C Other Provider Active Start : March 06, [...] Active Star t: March 06, 2025 Dr. Wililan Glaser MD Other Provider Active St art: March 06, 2025 Dr. Orly Mitchell MD Other Provider Active Start: March 06, 2025 Dr. Reinaldo Mclain MD Other Provider Active S tart: March 06, 2025 Dr. Santos Hsu MD Other Provider Active Start: March 06, 2025 Iker Rodriguez FAMILY NURSE, FAMILY NURSE-C Other Provider Active Start : March 06, [...] Active Start: March 07, 2025 Iker Rodriguez FAMILY NURSE, FAMILY NURSE-C Other Provider Active Start : March 07, [...] S tart: March 08, 2025 Dr. Santos sHu MD Other Provider Active Start: March 08, 2025 Iker Rodriguez FAMILY NURSE, FAMILY NURSE-C Other Provider Active Start : March 08, 2025 Leslie Arriaga PA, PA Other Provider Active Start: March 08, 2025 RICKEI Cummins Other Provider Active Start: March 08, [...] Active Start: March 08, 2025 Iker Rodriguez FAMILY NURSE, FAMILY NURSE-C Other Provider Active Start : March 08, [...] Active Start: March 09, 2025 Iker Rodriguez FAMILY NURSE, FAMILY NURSE-C Other Provider Active Start : March 09, [...] Active Start: March 09, 2025 Iker Rodriguez FAMILY NURSE, FAMILY NURSE-C Other Provider Active Start : March 09, [...] Sousa Attending Provider Active Start: A 2024 Team Status: Inactive Member Role/Relationship Status [...] Star t: April 10, 2025 Dr. Valdez lOivo MD Attending Provider Active Start: April 10, [...] Role/Relationship Status Dates Dr. Tonio Fajardo , DO Primary Care Provider Active Start: April 19, 2025 Dr. Casper Iniguez , DO Emergency Provider Active Start: April 19, 2025 Team Status: Active Member Role/Relationship Status Dates Dr. Tonio Fajardo DO Primary Care Provider Active Start: April 19, 2025 Dr. Casper Iniguez , DO Emergency Provider Active Start: April 19, 2025 Dr. Kwaku Narayanan , DO Admit Provider Active Start: April 19, 2025 Dr. Kwaku Narayanan , DO Attending Provider Active Start: April 19, 2025 Team Status: Active Member Role/Relationship Status Dates Dr. Tonio Fajardo , Primary Care Provider Active Start: April 19, 2025 Dr. Casper Iniguez , DO Emergency Provider Active Start: April 19, 2025 Dr. Kwaku Narayanan , Admit Provider Active Start: April 19, 2025 Dr. Kwaku Narayanan , Attending Provider Active Start: April 19, 2025 Dr. Kwaku Narayanan , Other Provider Active Start: April 19, 2025 Team Status: Inactive Member Role/Relationship Status Dates Dr. Tonio Fajardo , Primary Care Provider Active Start: April 20, 2025 End: April 23, 2025 Dr. Casper Iniguez , Emergency Provider Active Start: April 20, 2025 End: April 23, 2025 Dr. Kwaku Narayanan , DO Admit Provider Active Start: April 20, 2025 End: April 23, 2025 Dr. Kwaku Narayanan , Other Provider Active Start: April 20, 2025 End: April 23, 2025 Dr. Tonio Mccallum , Attending Provider Active Start: April 20, 2025 End: April 23, 2025 Team Status: Active Member Role/Relationship Status Dates Dr. Tonio Fajardo , DO Primary Care Provider Active Start: April 20, 2025 Dr. Casper Iniguez , DO Emergency Provider Active Start: April 20, 2025 Dr. Kwaku Narayanan , DO Admit Provider Active Start: April 20, 2025 Dr. Kwaku Narayanan , DO Other Provider Active Start: April 20, 2025 Dr. Tonio Mccallum , DO Attending Provider Active Start: April 20, 2025 Dr. Tonio Mccallum , DO Other Provider Active S tart: April 20, 2025 Team Status: Active Member Role/Relationship Status Dates Dr. Tonio Fajardo , DO Primary Care Provider Active Start: April 21, 2025 Dr. Casper Iniguez , DO Emergency Provider Active Start: April 21, 2025 Dr. Kwaku Narayanan , DO Admit Provider Active Start: April 21, 2025 Dr. Kwaku Narayanan , DO Other Provider Active Start: April 21, 2025 Dr. Tonio Mccallum , DO Attending Provider Active Start: April 21, 2025 Dr. Tonio Mccallum , DO Other Provider Active S tart: April 21, 2025 Team Status: Active Member Role/Relationship Status Dates Dr. Tonio Fajardo , DO Primary Care Provider Active Start: April 23, 2025 Dr. Casper Iniguez , DO Emergency Provider Active Start: April 23, 2025 Dr. Kwaku Narayanan , DO Admit Provider Active Start: April 23, 2025 Dr. Kwaku Narayanan , DO Other Provider Active Start: April 23, 2025 Dr. Tonio Mccallum , DO Attending Provider Active Start: April 23, 2025 Dr. Tonio Mccallum , DO Other Provider Active S tart: April 23, 2025 Team Status: Inactive Member Role/Relationship Status Dates Dr. Tonio Fajardo , DO Primary Care Provider Active Start: April 19, 2025 End: April 19, 2025 Dr. Issa Looney MD Attending Provider Active S tart: April 19, 2025 End: April 19, 2025 Team Status: Active Member Role/Relationship Status Dates Dr. Tonio Fajardo , DO Primary Care Provider Active Start: April 19, 2025 Dr. Casper Iniguez , DO Emergency Provider Active Start: April 19, 2025 Dr. Kwaku Narayanan , DO Admit Provider Active Start: April 19, 2025 Dr. Kwaku Narayanan , DO Attending Provider Active Start: April 19, 2025 Dr. Kwaku Narayanan , DO Other Provider Active Start: April 19, 2025 Team Status: Inactive Member Role/Relationship Status Dates Dr. Tonio Fajardo , DO Primary Care Provider Active Start: April 20, 2025 End: April 23, 2025 Dr. Casper Iniguez , DO Emergency Provider Active Start: April 20, 2025 End: April 23, 2025 Dr. Kwaku Narayanan , DO Admit Provider Active Start: April 20, 2025 End: April 23, 2025 Dr. Kwaku Narayanan , DO Other Provider Active Start: April 20, 2025 End: April 23, 2025 Dr. Tonio Mccallum , DO Attending Provider Active Start: April 20, 2025 End: April 23, 2025 Team Status: Active Member Role/Relationship Status Dates Dr. Tonio Fajardo DO Primary Care Provider Active Start: April 20, 2025 Dr. Casper Iniguez , DO Emergency Provider Active Start: April 20, 2025 Dr. Kwaku Narayanan , DO Admit Provider Active Start: April 20, 2025 Dr. Kwaku Narayanan , DO Other Provider Active Start: April 20, 2025 Dr. Tonio Mccallum , DO Attending Provider Active Start: April 20, 2025 Dr. Tonio Mccallum , DO Other Provider Active S tart: April 20, 2025 Team Status: Active Member Role/Relationship Status Dates Dr. Tonio Fajardo DO Primary Care Provider Active Start: April 21, 2025 Dr. Casper Iniguez , DO Emergency Provider Active Start: April 21, 2025 Dr. Kwaku Narayanan DO Admit Provider Active Start: April 21, 2025 Dr. Kwaku Narayanan DO Other Provider Active Start: April 21, 2025 Dr. Tonio Mccallum DO Attending Provider Active Start: April 21, 2025 Dr. Tonio Mccallum , DO Other Provider Active S tart: April 21, 2025 Team Status: Active Member Role/Relationship Status Dates Dr. Tonio Fajardo DO Primary Care Provider Active Start: April 23, 2025 Dr. Casper Iniguez DO Emergency Provider Active Start: April 23, 2025 Dr. Kwaku Narayanan DO Admit Provider Active Start: April 23, 2025 Dr. Kwaku Narayanan , DO Other Provider Active Start: April 23, 2025 Dr. Tonio Mccallum , DO Attending Provider Active Start: April 23, 2025 Dr. Tonio Mccallum , DO Other Provider Active S tart: April 23, 2025 Team Status: Active Member Role/Relationship Status Dates Dr. Tonio Fajardo DO Primary Care Provider Active Start: April 23, 2025 Dr. Valdez Olivo MD Admit Provider Active Star t: April 23, 2025 Dr. Valdez Olivo MD Attending Provider Active Start: April 23, 2025 Team Status: Inactive Member Role/Relationship Status Dates Dr. Tonio Fajardo DO Primary Care Provider Active Start: April 28, 2025 End: April 28, 2025 Dr. Tonio Fajardo DO Referring Provider Active Start: April 28, 2025 End: April 28, 2025 Carol Sousa Attending Provider Active Start: S eptember 2024 End: April 28, 2025 Team Status: Active Member Role/Relationship Status Dates Dr. Tonio Fajardo DO Primary Care Provider Active Start: April 23, 2025 Dr. Valdez Olivo MD Admit Provider Active Star t: April 23, 2025 Dr. Valdez Olivo MD Attending Provider Active Start: April 23, 2025 Dr. Deric Lantigua MD Other Provider Active Sta rt: April 23, 2025 Dr. Jakob Goddard DO Other Provider Active St art: April 23, 2025 Karol Nava NP-C Other Provider Active Start : April 23, 2025 Evelia Bedolla NP-C Other Provider Active St art: April 23, 2025 RICKIE Zapata Other Provider Active Star t: April 23, 2025 Team Status: Inactive Member Role/Relationship Status Dates Dr. Tonio Fajardo DO Primary Care Provider Active Start: April 28, 2025 End: April 28, 2025 Dr. Issa Looney MD Attending Provider Active S tart: April 28, 2025 End: April 28, 2025 Team Status: Inactive Member Role/Relationship Status Dates Dr. Tonio Fajardo DO Primary Care Provider Active Start: April 28, 2025 End: April 28, 2025 Dr. Tonio Fajardo DO Referring Provider Active Start: April 28, 2025 End: April 28, 2025 Carol Sousa Attending Provider Active Start: S eptember 2024 End: April 28, 2025 Team Status: Inactive Member Role/Relationship Status Dates Dr. Tonio Fajardo DO Primary Care Provider Active Start: May 04, 2025 End: May 04, 2025 Dr. Tonio Fajardo DO Referring Provider Active Start: May 04, 2025 End: May 04, 2025 Dr. Jakob Goddard DO Attending Provider Active Start: May 04, 2025 End: May 04, 2025 Team Status: Active Member Role/Relationship Status Dates Dr. Tonio Fajardo DO Primary Care Provider Active Start: May 04, 2025 Dr. Tonio Fajardo DO Referring Provider Active Start: May 04, 2025 Dr. Jakob Goddard DO Attending Provider Active Start: May 04, 2025 Dr. Jakob Goddard DO Other Provider Active St art: May 04, 2025 (unrecognized sect ion and content) No Status Records FoundNo Status Records FoundNo Status Records Found INFORMATION SOURCE (unrecogn ized section and content) DATE CREATED AUTHOR 08/12/2022 [facility] DATE CREATED AUTHOR AUTHOR'S ORGANIZ ATION 05/01/2025 [facility] DATE CREATED AUTHOR AUTHOR'S ORGANIZ ATION 05/11/2025 [facility] FOR RECORDS PERTAINING TO PATIENTS WHO [...] BE BASED ON THE PRIMARY CLINICAL RECORDS. [employer] provides no warranty or guarantee of the accuracy or completeness of information in this document.
[2025-05-11 21:49] LABS: Red Blood Cells-Urine 5-10 SEEN /hpf (0-5); Squamous Epithelial Cells - UA 0-5 SEEN /hpf (0-5)
[2025-05-11 21:49] LABS: Troponin T High Sensitivity 88 ng/L (<=22)
--- NOTE | 2025-05-11 22:10 | CT_ITS ---
PROCEDURE: CTA CHEST W/WO CONTRAST 05/11/2025 REASON FOR EXAM: SOB TECHNIQUE: Procedure Code: [id number] Modality: CT Procedure: CTA CHEST W/WO CONTRAST Multiplanar Sagittal and Coronal images were obtained. CONTRAST: Isovue 370 VOLUME: 100 mL One or more dose reduction techniques were used (e.g., Automated exposure control, adjustment of the mA and/or kV according to patient size, use of iterative reconstruction technique). RADIATION DOSE SUMMARY: CTDlvol: 14.09 mGy DLP: 451 mGycm COMPARISON: Chest radiograph on 05/11/2025. FINDINGS: Moderate right pleural effusion. Mild left pleural effusion. Passive atelectatic airspace disease of the lower lobes. Subsegmental atelectasis/consolidation of the right upper lobe, possibly superimposed pneumonia. Secondary mild loss of volume in the right hemithorax. Secretions in the tracheobronchial tree. Moderate coronary artery calcifications. AICD is in good position. Paraseptal emphysema. Interstitial pulmonary congestion/edema. Mild cardiomegaly. Diffuse spondylosis. Mild hepatomegaly. Normal enhancement of the main pulmonary artery and right and left pulmonary arteries. Normal enhancement of the bilateral peripheral pulmonary arteries. There is no demonstrated pulmonary embolism. Mild atheromatous plaques of the thoracic aorta and visualized great vessels. There is no demonstrated aortic dissection. Normal pericardium. Normal mediastinum. Normal hilar regions. Normal visualized trachea and bronchi. CT/CTA Chest W/WO Contrast IMPRESSION: No demonstrated pulmonary embolism or arterial dissection. Moderate right pleural effusion. Mild left pleural effusion. Passive atelectatic airspace disease of the lower lobes. Subsegmental atelectasis/consolidation of the right upper lobe, possibly superi mposed pneumonia. Secondary mild loss of volume in the right hemithorax. Secretions in the tracheobronchial tree. Moderate coronary artery calcifications. AICD is in good position. Paraseptal emphysema. Interstitial pulmonary congestion/edema. Mild cardiomegaly. Diffuse spondylosis. Mild hepatomegaly. Reading Location: [place] [id number]
[2025-05-11 23:17] LABS: Troponin T High Sens 2 HR 75 ng/L (<=22)
[2025-05-11] MEDS: Nitroglycerin SL (ED/IMG/CATH) 0.4 MG TABLET SL (23:37)
--- NOTE | 2025-05-11 23:41 | EKG12_ITS ---
Test Reason : DYSRHYTHMIA Blood Pressure : */* mmHG Vent. Rate : 112 BPM Atrial Rate : 112 BPM P-R Int : 96 ms QRS Dur : 116 ms QT Int : 372 ms P-R-T Axes : 10 8 -26 degrees QTcB Int : 507 ms Atrial fibrillation Incomplete right bundle branch block Nonspecific ST abnormality Prolonged QT Abnormal ECG Confirmed by CAMILLE STRATTON, SANDRA ([id number]), editor in chief AYDEN TENORIO ([id number]) on 05/12/2025 7:33:32 AM Referred By: Confirmed By: SANDRA OBRIEN MD
[2025-05-12] VITALS (23 sets, daily range): BP systolic 134–176; BP diastolic 56–91; PULSE 93–102; RESP 12–32; TEMP 35.8–36.9; O2SAT 92–100; BMI 25.7; BMI 25.6
--- NOTE | 2025-05-12 00:27 | PCM.HP.STD ---
[facility] - General General Date of Admission: 05/12/25 Date of Service: 05/12/25 Chief Complaint: Shortness of breath HPI Narrative PEDRO HILLMAN, is a 80 M who presents to the emergency room from the transitional care unit due to respiratory distress. Patient has significant past medical history of lung cancer, coronary artery bypass graft, pleural effusion, diabetes, chronic kidney disease, congestive heart failure status post pacemaker. Patient was undergoing rehab in the transitional care unit when the last day he has become more short of breath with a rapid respiratory rate of 30 and requiring more oxygen to maintain his SpO2 greater than 90%. In the emergency room he was placed on BiPAP therapy to which she has responded and is more comfortable. Laboratory studies reveal sodium 141, potassium 4.2, chloride 95, bicarb 35.8, BUN 45, creatinine 1.54, glucose 204, white blood cell count 9.9, hemoglobin 9.7, hematocrit 32, platelets 215, ABG with a pH 7.43, troponin 88, proBNP TP 4149. Chest x-ray reveals cardiomegaly with moderate right pleural effusion and this is also seen on CT scan as well. In speaking with his son the patient has expressed wish to remain full code at present time. He will be admitted to progressive care unit will continue BiPAP therapy overnight. [facility] Medical History Orthostatic hypotension Syncope Presence of cardiac pacemaker Peripheral arterial disease Other persistent atrial fibrillation New onset atrial flutter COVID Wears hearing aid in both ears Former smoker Coronary artery disease Peripheral vascular occlusive disease BPH (benign prostatic hyperplasia) Chronic kidney disease, stage 3 Atherosclerosis of coronary artery of [place] heart without angina pectoris Hyperlipidemia Lower extremity edema Venous insufficiency Malnutrition Delayed wound healing Osteomyelitis of ankle, left, acute Ulcer of left lower extremity with fat layer exposed Type 2 diabetes mellitus with diabetic polyneuropathy Anemia GERD (gastroesophageal reflux disease) Hypertension Home Medications ?Medication ?Instructions ?Recorded ?Last Taken ?Type multivitamin (Daily Multi-Vitamin 1 tab PO DAILY supplement 06/28/20 05/03/25 History tablet) pravastatin 20 mg tablet 20 mg PO DAILY hyperlipidemia 01/17/22 05/03/25 History apixaban 5 mg tablet (Eliquis) 2.5 mg (1/2 x 5 mg) PO BID blood 03/09/25 05/01/25 Rx thinner 30 days #30 tabs tamsulosin 0.4 mg capsule 0.4 mg PO DAILY@1730 prostate 30 03/09/25 05/03/25 Rx days #30 caps metoprolol succinate 25 mg 12.5 mg (1/2 x 25 mg) PO BID blood 04/03/25 05/04/25 Rx tablet,extended release 24 hr thinner #90 tabs clopidogrel 75 mg tablet 75 mg PO DAILY anti platelet 04/05/25 05/03/25 History OXYGEN - Supplemental ([facility] 04/09/25 Unknown History INFORMATIONAL USE ONLY) ipratropium 0.5 mg-albuterol 3 mg 3 ml inhalation Q8H SOB 04/17/25 Unknown History (2.5 mg base)/3 mL nebulization soln acetaminophen 325 mg tablet 650 mg (2 x 325 mg) PO Q6H PRN PRN 04/23/25 05/03/25 Rx Pain 1-10 Or Fever>100.7 #0 tabs albuterol sulfate 2.5 mg/3 mL 2.5 mg (3 mL) inhalation Q4H PRN 04/23/25 05/03/25 Rx (0.083 %) solution for nebulization shortness of breath or wheezing #0 mL fludrocortisone 0.1 mg tablet 0.1 mg PO BID hypotension #0 tabs 04/23/25 05/03/25 Rx insulin lispro 100 unit/mL See Protocol subcut ACHS diabetes 04/23/25 Unknown Rx subcutaneous pen (Humalog KwikPen #0 mL (U-100) Insulin) midodrine 5 mg tablet 10 mg (2 x 5 mg) PO TIDCM 04/23/25 Unknown Rx hypotension #0 tabs nutrition tx glu 120 ml PO TIDCM supplement #0 mL 04/23/25 05/03/25 Rx intol,lac-free,soy-fiber 0.06 gram-1.2 kcal/mL liquid (Glucerna 1.2 Gonzalo) insulin glargine-yfgn 100 unit/mL 20 unit subcut QHS diabetes 05/04/25 05/03/25 History (3 mL) subcutaneous pen Allergy/AdvReac Type Severity Reaction Status Date / Time ibuprofen Allergy Severe Facial Verified 05/11/25 20:31 swelling (angioedema) Family History Brother Diabetes Father , Age 72 stomach ulcers No problems noted. Mother , Age 71 pancreatitis No problems noted. Sister , hepatitis C No problems noted. Surgical History History of permanent cardiac pacemaker placement H/O aorto-femoral bypass (~2009) History of transurethral resection of prostate Presence of aortocoronary bypass graft (~03/2013) Social History household members: none Smoking Status: Former smoker Tobacco: How many years used: 30 how long ago did patient quit smokin years ROS Constitutional Constitutional: Denies chills or fever(s) Eyes Eyes: Denies blurry vision ENT HEENT: Denies abnormal hearing Cardiovascular Cardiovascular: Denies chest pain Respiratory/Chest Respiratory/Chest: Reports shortness of breath at rest Gastrointestinal Gastrointestinal: Denies abdominal pain Genitourinary Genitourinary: Denies dysuria Musculoskeletal Musculoskeletal: Denies back pain Integumentary Integumentary: Denies dry skin Neurologic Neurologic: Denies abnormal speech Psychiatric Psychiatric: Denies anxiety Vital Signs Vital Signs Vital Signs: 05/11/25 20:16 05/11/25 20:31 05/11/25 20:38 Temperature 96.9 F L Temperature Source Temporal Pulse Rate 100 102 H Respiratory Rate 31 H 36 H Respiratory Effort Labored Respiratory Pattern Tachypnea Blood Pressure 165/91 H Blood Pressure Mean 115 Pulse Ox 100 100 Oxygen Delivery Method Non-Rebreather Non-Rebreather Oxygen Flow Rate (L/min) 15 10 Fraction of Inspired Oxygen (FIO2) 60 05/11/25 20:48 05/11/25 21:19 05/11/25 21:24 Temperature 97.6 F L Temperature Source Axillary Pulse Rate 101 H 101 H 102 H Respiratory Rate 26 H 24 H 26 H Respiratory Effort Respiratory Pattern Tachypnea Blood Pressure 160/66 H 160/66 H Blood Pressure Mean 97 97 Pulse Ox 98 98 Oxygen Delivery Method Bi-pap Bi-pap Oxygen Flow Rate (L/min) 30 Fraction of Inspired Oxygen (FIO2) 40 05/11/25 22:00 05/11/25 22:00 05/11/25 23:00 Temperature 98.0 F 98.9 F Temperature Source Axillary Oral Pulse Rate 100 100 99 Respiratory Rate 20 H 20 H 29 H Respiratory Effort Respiratory Pattern Blood Pressure 165/70 H 165/70 H 168/72 H Blood Pressure Mean 101 101 104 Pulse Ox 94 96 100 Oxygen Delivery Method Bi-pap Bi-pap Nasal Cannula Oxygen Flow Rate (L/min) 30 6 Fraction of Inspired Oxygen (FIO2) 30 05/11/25 23:00 05/11/25 23:00 05/11/25 23:37 Temperature Temperature Source Pulse Rate 126 H Respiratory Rate Respiratory Effort Respiratory Pattern Blood Pressure 168/72 H 165/118 H Blood Pressure Mean 104 Pulse Ox 96 Oxygen Delivery Method Nasal Cannula Oxygen Flow Rate (L/min) 6 Fraction of Inspired Oxygen (FIO2) 05/11/25 23:48 05/11/25 23:51 Temperature Temperature Source Pulse Rate 101 H Respiratory Rate 30 H Respiratory Effort Respiratory Pattern Tachypnea Blood Pressure 153/71 H Blood Pressure Mean 98 Pulse Ox 94 Oxygen Delivery Method Oxygen Flow Rate (L/min) Fraction of Inspired Oxygen (FIO2) 35 Weight Weight: 167 lb 15.876 oz Body Mass Index (BMI) 27.1 Physical Exam Const alert General Appearance: cooperative HEENT normocephalic and head/scalp atraumatic Eyes PERRL Neck no lymphadenopathy Lymph Lymphatic: no lymphadenopathy noted Resp Effort and Inspection: respiratory distress and labored Auscultation: diminished lung sounds right; Negative for wheezes Cardio regular rate, regular rhythm, S1 normal heart sound and S2 normal heart sound GI normal to inspection, nondistended, normoactive bowel sounds Extremity normal capillary refill General Extremity: Negative for clubbing Skin General Skin Exam: no breakdown Neuro no focal motor deficits and no sensory deficits noted Psych cooperative and affect normal Attitude: No agitated Results Lab / Micro Data 05/11/25 20:31 05/11/25 20:31 Labs: Laboratory Results - last 24 hr 05/11/25 20:31: WBC 9.9, RBC 3.49 L, Hgb 9.7 L, Hct 32.0 L, MCV 91.7, MCH 27.8, MCHC 30.3 L, RDW Std Deviation 53.3 H, RDW Coeff of Reggie 16.1 H, Plt Count 215, MPV 11.0, Immature Gran % (Auto) 0.500, Neut % (Auto) 77.9 H, Lymph % (Auto) 10.3 L, [place] % (Auto) 10.0, Eos % (Auto) 0.8, Baso % (Auto) 0.5, Absolute Neuts (auto) 7.7, Absolute Lymphs (auto) 1.02, Nucleated RBC % 0, PT 17.3 H, INR 1.4, APTT 39.1 H, Sodium 141, Potassium 4.2, Chloride 95 L, Carbon Dioxide 35.8 H, Anion Gap 10, BUN 25 H, Creatinine 1.54 H, Estim Creat Clear Calc 34.52 L, Est GFR (MDRD) Non-Af 45 L, BUN/Creatinine Ratio 16.4, Glucose 204 H, Lactic Acid 1.2, Calcium 9.3, Total Bilirubin 0.63, AST 23, ALT 13, Alkaline Phosphatase 92, Troponin T High Sens 88 H* D, NT pro BNP II 4149 H, Total Protein 7.7, Albumin 3.6, Globulin 4.1, Albumin/Globulin Ratio 0.9 05/11/25 21:15: Urine Color Yellow, Urine Clarity Clear, Urine pH 6.5, Ur Specific [place] 1.010, Urine Protein 500 H, Urine Glucose (UA) 50 H, Urine Ketones Negative, Urine Occult Blood 25 H, Urine Nitrite Negative, Urine Bilirubin Negative, Urine Urobilinogen Normal, Ur Leukocyte Esterase Negative, Urine RBC 5-10 SEEN, Urine WBC 0-5 SEEN, Ur Squamous Epith Cells 0-5 SEEN, Urine Bacteria 0 SEEN, Hyaline Casts 5-10 SEEN, Urine Mucus 0 SEEN 05/11/25 22:42: Troponin T Hi Sens 2 Hr 75 H* Micro: Microbiology 05/11/25 20:47 Mucosa - Nose SARS-CoV-2, Influenza & RSV (PCR) - Final ABG Data ABG results: ABG 05/11/25 20:27 Specimen Type ART Sample Site R Radial pH 7.43 Bicarbonate Actual 43.5 H Total CO2 46 Base Excess 19 H O2 Saturation 97 O2 % 15.0 ABG pCO2 65.7 H ABG pO2 96 Jg Test Positive O2 Delivery Device NRB Vent Mode Not entered Imaging Radiology Impression Chest X-Ray 05/11/25 20:57 IMPRESSION: Cardiomegaly with moderate right and small left pleural effusions. Similar to prior. Reading Location: [facility] Assessment & Plan Assessment/Plan (1) Recurrent right pleural effusion: (2) (HFpEF) heart failure with preserved ejection fraction: (3) Heart failure: (4) History of COPD: (5) Chronic kidney disease, stage 3b: (6) Type 2 diabetes mellitus with hyperglycemia: (7) History of lung cancer: (8) Presence of cardiac pacemaker: (9) Acute respiratory failure: PLAN: Plan 1 acute respiratory failure secondary to congestive heart failure and pleural effusion?admit patient to progressive care unit continue BiPAP therapy patient is currently stable on BiPAP therapy and tolerating well, albuterol nebulized every 4 hours as needed. Repeat CBC BMP in a.m. will get coag panels repeated in the a.m. and may consider consult for thoracentesis as well if patient respiratory status does not continue to improve. CT scan report was pending at the time of my evaluation. 2. NSTEMI?continue to cycle cardiac enzymes and consider cardiology consult in a.m. if cardiac enzymes increase and/or patient experiences chest pain 3. Diabetes?continue routine medications 4. Chronic kidney disease?repeat BMP in the a.m. 5. DVT prophylaxis?low molecular weight heparin 6.?CODE STATUS full code verified by family member Charges/Coding Visit Charges Inpatient E&M: 80526 Init Hosp L2
--- OUTSIDE RECORDS SUMMARY | 2025-05-12 01:56 | XMS RPT_ITS | CCD ---
Author Organization [facility] Care Team Providers Care Radio Communication Coordinator Name Role Phone Dr. Tonio Fajardo Primary Care Provider [phone] Dr. Tonio Fajardo Referring Provider Dr. Issa Looney Attending Provider [phone] Tonio Fajardo DO Primary Care Provider Dr. Tyrell Uriarte Attending Provider Dr. Tonio Fajardo Primary Care Provider [phone] Dr. Tonio Fajardo Referring Provider Brittny [employer]OT[employer]ACH[employer], [employer]ACH[employer]ER [employer]-C Lorie Attending Provider [phone] Dr. Russ Zamora Attending Provider Renard [employer]ACH[employer], ROB[employer] MACHINE [employer]-C Bonny E Attending Provider [phone] Renard [employer], ROBOT[employer] MACHINE T[employer]ER [employer]-C Bonny E Referring Provider [phone] Renard ROBOT[employer] MACHINE TENDER [employer]ODUCTION, ROBOTIC MACHINE TENDER PR[employer]-C Bonny E Other Provider Dr. Srini Choi Attending Provider Dr. Srini Choi Referring Provider Dr. Srini Choi Other Provider Dr. Mateo Shahid Attending Provider Dr. Issa Looney Attending Provider Dr. Kenyon Flores Referring Provider Unava ilable Dr. Srini Choi Referring Provider [phone] Tevin Allen Attending Provider Dr. Tonio Fajardo Primary Care Provider Dr. Tonio Fajardo Referring Provider Dr. Tyrell Uriarte Attending Provider Dr. Issa Looney Attending Provider Dr. Kenyon Flores Referring Provider Unava mp Mart [employer], ROBOT[employer] MACHINE T[employer]ER [employer]-C Lorie Attending Provider Dr. Russ Zamora Attending Provider Renard [employer]ACH[employer], ROB[employer] MACH[employer]ER [employer]-C Bonny E Attending Provider Renard ROB[employer]ACH[employer], ROBOT[employer] MACHINE T[employer]ER [employer]-C Bonny E Referring Provider [phone] Renard ROB[employer] MACH[employer], ROBOTIC MACHINE TENDER [employer]-C Bonny E Other Provider Dr. Srini Choi Attending Provider Dr. Srini Choi Referring Provider Dr. Srini Choi Other Provider Dr. Mateo Shahid Attending Provider Roof [employer]OT[employer]ACH[employer], ROBOTIC MACHINE TENDER [employer]-C Iker Stephens Attending Provider Tonio Fajardo DO A Primary Care Provider STEVEN MELGAR Referring Unavailable TONIO FAJARDO A Primary Care Unavailable TONIO FAJARDO A Primary Care Unavailable Dr. Tonio Fajardo Primary Care Provider [phone] Dr. Tonio Fajardo Referring Provider Dr. Tonio Fajardo Primary Care Provider [phone] Renard [employer], ROBOTIC MACHINE T[employer]ER [employer]-C Bonny E Attending Provider Renard ROBOT[employer] MACHINE TEND[employer], ROBOTIC MACHINE TENDER [employer]-C Bonny E Referring Provider [phone] Renard ROBOT[employer] MACHINE T[employer], ROBOTIC MACHINE TENDER [employer]-C Bonny E Other Provider Dr. Tonio Fajardo Referring Provider Dr. Russ Zamora Attending Provider Dr. Tonio Fajardo Primary Care Provider Dr. Srini Choi Attending Provider Dr. Srini Choi Referring Provider Renard ROBOT[employer]ACH[employer], ROBOTIC MACHINE TENDER [employer]-C Bonny E Attending Provider Renard ROBOT[employer] MACHINE TEND[employer], ROBOTIC MACHINE TENDER [employer]-C Bonny E Referring Provider [phone] Renard ROBOT[employer] MACHINE TEND[employer], ROBOTIC MACHINE TENDER [employer]-C Bonny E Other Provider Dr. Tonio Fajardo Referring Provider Dr. Russ Zamora Attending Provider Dr. Tonio Fajardo Primary Care Provider Renard ROB[employer]ACH[employer], ROBOT[employer] MACHINE T[employer]ER [employer]-C Bonny E Attending Provider [phone] Renard ROBOT[employer] MACHINE TEND[employer], ROBOTIC MACHINE TENDER [employer]-C Bonny E Referring Provider [phone] Renard ROBOT[employer] MACHINE TENDER [employer], ROBOTIC MACHINE TENDER [employer]-C Bonny E Other Provider Dr. Tonio Fajardo Referring Provider Dr. Russ Zamora Attending Provider Dr. Srini Choi Attending Provider Dr. Tyrell Uriarte Attending Provider Dr. Tonio Fajardo Primary Care Provider Renard [employer]ACH[employer], ROBOT[employer] MACHINE T[employer]ER [employer]-C Bonny E Attending Provider Renard ROBOT[employer] MACHINE T[employer], ROBOTIC MACHINE TENDER [employer]-C Bonny E Referring Provider Renard ROBOT[employer] MACHINE TENDER [employer], ROBOT[employer] MACHINE TENDER [employer]-C Bonny E Other Provider [phone] Dr. Tonio Fajardo Primary Care Provider Renard ROB[employer] MACH[employer], ROBOT[employer] MACHINE TENDER [employer]-C Bonny E Attending Provider [phone] Renard ROB[employer] MACH[employer], ROBOT[employer] MACHINE TENDER [employer]-C Bonny E Referring Provider [phone] Renard ROBOT[employer] MACHINE TENDER [employer], ROBOTIC MACHINE TENDER [employer]-C Bonny E Other Provider [phone] Dr. Tonio Fajardo Primary Care Provider Renard ROB[employer] MACHINE TEND[employer], ROBOTIC MACHINE TENDER [employer]-C Bonny E Attending Provider Renard ROBOT[employer] MACHINE TENDER [employer], ROBOTIC MACHINE TENDER [employer]ODUCTION-C Bonny E Referring Provider Renard ROBOTIC MACHINE TENDER [employer]ODUCTION, ROBOTIC MACHINE TENDER [employer]ODUCTION-C Bonny E Other Provider Dr. Tonio Fajardo Referring Provider Dr. Tonio Fajardo Primary Care Provider Renard ROB[employer] MACHINE TENDER [employer], ROBOT[employer] MACHINE TENDER [employer]-C Bonny E Attending Provider [phone] Renard ROBOT[employer] MACHINE TENDER [employer], ROBOT[employer] MACHINE TENDER [employer]-C Bonny E Referring Provider [phone] Renard ROBOT[employer] MACHINE TENDER [employer]ODUCTION, ROBOTIC MACHINE TENDER [employer]-C Bonny E Other Provider Dr. Tonio Fajardo Primary Care Provider Renard ROBOT[employer] MACHINE TENDER [employer], ROBOTIC MACHINE TENDER [employer]-C Bonny E Attending Provider [phone] Renard ROBOT[employer] MACHINE TENDER [employer], ROBOTIC MACHINE TENDER [employer]-C Bonny E Referring Provider Renard ROBOTIC MACHINE TENDER [employer]ODUCTION, ROBOTIC MACHINE TENDER [employer]-C Bonny E Other Provider Dr. Tonio Fajardo Primary Care Provider Renard ROBOT[employer] MACHINE TENDER [employer], ROBOTIC MACHINE TENDER [employer]-C Bonny E Attending Provider Renard ROBOT[employer] MACHINE TENDER [employer]ODUCTION, ROBOTIC MACHINE TENDER [employer]-C Bonny E Referring Provider Renard ROBOTIC MACHINE TENDER [employer], ROBOTIC MACHINE TENDER [employer]-C Bonny E Other Provider Dr. Tonio Fajardo Referring Provider Dr. Russ Zamora Attending Provider Dr. Tonio Fajardo Primary Care Provider Renard [employer]ACH[employer], ROBOT[employer] MACHINE TENDER [employer]-C Bonny E Attending Provider [phone] Renard ROB[employer] MACHINE TENDER [employer], ROBOTIC MACHINE TENDER [employer]-C Bonny E Referring Provider [phone] Renard ROBOT[employer] MACHINE TENDER [employer], ROBOTIC MACHINE TENDER [employer]-C Bonny E Other Provider Dr. Francisco Javier Lozada Attending Provider Dr. Joaquim Suárez Referring Provider Dr. Tonio Fajardo Primary Care Provider Renard ROB[employer] MACHINE [employer], ROBOT[employer] MACHINE TENDER [employer]-C Bonny E Attending Provider Renard ROBOTIC MACHINE TENDER [employer], ROBOTIC MACHINE TENDER [employer]-C Bonny E Referring Provider [phone] Renard ROBOT[employer] MACHINE TENDER [employer], ROBOTIC MACHINE TENDER [employer]ODUCTION-C Bonny E Other Provider Dr. Tonio Fajardo Referring Provider Dr. Russ Zamora Attending Provider Dr. Francisco Javier Lozada Attending Provider Dr. Joaquim Suárez Referring Provider Dr. Tonio Fajardo Primary Care Provider [phone] Brittny ROBOTIC MACHINE TENDER [employer]ODUCTION, ROBOTIC MACHINE TENDER [employer]-C Lorie Attending Provider RICKIE Alejandra Attending Provider Dr. Tonio Fajardo Primary Care Provider [phone] Dr. Tonio Fajardo Referring Provider Dr. Issa Looney Attending Provider [phone] Tonio Fajardo Primary Care Provider [phone] Dr. Tonio Fajardo Referring Provider Dr. Russ Zamora Attending Provider Dr. Tyrell Uriarte Attending Provider Tonio Fajarod DO Primary Care Provider Dr. Tonio Fajardo DO Primary Care Provider Jose Armando DPMDr. March Attending Provider Dr. Joaquim Suárez DPM Referring Provider Dr. Tonio Fajardo DO Referring Provider Leslie Alejandra Attending Provider Leslie Alejandra Referring Provider Brittny CAMPUZANO-C, Lorie Attending Provider Brittny ROBOTIC MACHINE TENDER [employer]-C, Lorie Referring Provider Brittny CAMPUZANO-C, Lorie Other Provider Dr. Tyrell Uriarte DO Attending Provider Scotty , Dr. Elizalde Attending Provider Sera STRATTON, Dr. Solano Attending Provider Sera STRATTON, Dr. Solano Referring Provider Scotty MCGEE, Dr. Elizalde Primary Care Provider Branch , Dr. Milligan Other Provider Scotty MCGEE, [...] Shadi STRATTON, Dr. Graham Other Provider Michael ROBOTIC MACHINE TENDER [employer]ODUCTION-C, Iker Stephens Other Provider Corina DAMIAN, Leslie [...] Shadi STRATTON, Dr. Graham Other Provider [facility] ROBOTIC MACHINE TENDER [employer]ODUCTION-C, Iker Stephens Other Provider Leslie Alejandra Other Provider Tadeo Fink Other Provider Grzegorz STRATTON, Dr. Leos Other Provider Peter STRATTON, Dr. Amador Attending Provider Dr. Willian Glaser MD Attending Provider Dr. Alex Matias MD Attending Provider Florencio STRATTON, Dr. Johnsno Emergency Provider Dr. Tonio Fajardo DO Referring [...] Goddard DO, Dr. Robert Other Provider Elijah ROBOTIC MACHINE TENDER [employer]ODUCTION-C, Karol Other Provider Graeme ROBOTIC MACHINE TENDER [employer]ODUCTION-C, Evelia Other Provider Yulia Suh Other Provider Nitza MCGEE, Dr. Robert Attending Provider Nicola Lindsey Admitting Unavailable de Nicola Madison Attending Unavailable de Nicola Madison Consulting Unavailable Scotty, Tonio Primary Care Unavailable Scotty, Tonio Primary Care Unavailable Aayush, Issa Attending Unavailable Scotty, Tonio Primary Care Unavailable Aayush, [place] Attending Unavailable Scotty, Tonio Primary Care Unavailable [...] Issa Consulting Unavailable Nicola Roman Consulting Unavailable Mckees RocksGuySantos Attending Unavailable Scotty, Tonio Primary Care Unavailable FriendJakob Attending Unavailable Scotty, Tonio Referring Unavailable Jakob Goddard Consulting Unavailable Willian Glaser Attending Unavailable Te Ahmed Consulting Unavailable Jabri, Ahmaalex Consulting Unavailable Mostafa, Nicolette Consulting Unavailable Peter, [...] Referring Unavailable Srini Choi Consulting Unavailable Aayush, [place] Attending Unavailable Scotty, Tonio Primary Care Unavailable Aayush, [place] Referring Unavailable Aayush, Issa Attending Unavailable Leslie [...] Consulting Unavailable Marjorie Green Attending Unavailable Scotty, Toino Primary Care Unavailable Alex Matias Attending Unavailable Russ Zamora Attending Unavailable Prah, Russ Referring Unavailable Scotty, Tonio Primary Care Unavailable Scotty, Tonio Primary Care Unavailable Scotty, Tonio Attending Unavailable Scotty, Tonio Referring Unavailable Scotty, Tonio Primary Care Unavailable Brittny ROBOTIC MACHINE TENDER [employer]ODUCTION, Lorie Attending Unavailable Brittny ROBOTIC MACHINE TENDER [employer]ODUCTION, Lorie Referring Unavailable Scotty, Tonio Primary Care [...] Consulting Unavailable Grzegorz, Deric Consulting Unavailable Aayush, [place] Consulting Unavailable Carmelina Parra Referring Unavailable Tonio Fajardo Primary Care Unavailable Carmelina Parra Attending Unavailable [...] [IBUPROFEN] Drug Allergy 2 Shortness of Breath [facility] Work Phone: (1 source) Ibuprofen Drug Allergy 5 [facility] Medications Current Medications Medication Drug Class(es) [...] 07-25-2023 Start: 04-14-2022 take 1 capsule by [facility] once daily as needed Docusate [...] on above: Take by mouth. Fish,Bora,Flax Oils-Om3,6,9no1 ([place] 3-6-9) 1,200 mg Capsule (8 sources) Start: 11-02-2021 take 1 capsule by mouth twice daily Fish,Bora,Flax Oils-Om3,6,9no1 ([place] 3-6-9) 1,200 mg Capsule Active 1 CAP PO TWICE A DAY November 02, 2021 1:31pm Start: 11-02-2021 take 1 capsule by mo [facility] twice daily Fish,Bora,Flax Oils-Om3,6,9no1 ([place] 3-6-9) 1,200 mg Capsule Active 1 CAP [...] on above: Take 1 capsule by mo [facility] three times daily for 10 days. [...] Fills Dispensed: 0 Fish Oil-Fat Acid Comb.8-Hb137 ([place] 3-6-9 1,200 Mg Softgel) 1,200 MG capsule (20 sources) Start: 12-03-2013 End: 03-21-2017 Fish Oil-Fat Acid Comb.8-Hb137 ([place] 3-6-9 1,200 Mg Softgel) 1,200 MG capsule Discontinued 1000 MG PO TWICE A DAY December 03, 2013 11:07am March 21, 2017 2:47pm Start: 12-03-2013 End: 03-21-2017 Fish Oil-Fat Acid Comb.8-Hb1 37 ([place] 3-6-9 1,200 Mg Softgel) 1,200 MG capsule Discontinued 1000 mg PO TWICE A DAY December 03, 2013 12:00am March 21, 2017 2:47pm Start: 12-03-2013 End: 03-21-2017 Fish Oil-Fat Acid Comb.8-Hb1 37 ([place] 3-6-9 1,200 Mg Softgel) 1,200 MG capsule Discontinued 1000 MG PO TWICE A DAY December 02, 2013 11:00pm March 21, 2017 1:47pm Start: 12-03-2013 End: 03-21-2017 Fish Oil-Fat Acid Comb.8-Hb1 37 ([place] 3-6-9 1,200 Mg Softgel) 1,200 MG capsule [...] 21, 2017 12:00am November 19, 2019 3:48pm Vwwgnrpvpwr-Vbwaosoew-Yalurq er (20 sources) Start: 02-15-2024 End: 09-25-2024 Start: 02-15-2024 End: 09-25-2024 Owutjrsinmi-Lfravfkic-Onqiwt er (Trelegy Ellipta) 200-62.5-25 mcg blister with device Discontinued 1 NMA INHALATION DAILY 3 February 15, 2024 12:00am September 25, 2024 2:02pm Start: 02-15-2024 End: 09-25-2024 Dyytcuemjok-Zrzfoydqi-Yzshex er (Trelegy Ellipta) 200-62.5-25 mcg blister with [...] August 25, 2013 10:01am lactobacillus acidophilus 10 [id number] unt oral capsule (20 sources) Start: 05-24-2022 [...] Coronary atherosclerosis; Translations: [Atherosclerotic heart disease of [place] coronary artery without angina pectoris] Onset: 04-13-2025 [...] sources) Long-term current use of anticoagulant; Translations: [supervisor intermediates (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 of anticoagulants] 03-04-2025 Episodic Other aftercare (17 sources) Long-term current use of drug therapy; Translations: [supervisor intermediates (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 of 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/antipl atelets] 03-15-2025 Episodic Other aftercare (1 source) FDC (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 of anticoagulants; Translations: [FDC (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 of anticoagulants] Onset: 05-06-2025 Episodic [...] )on 05-11-2025 BUN/CRE 17.4 RATIO Normal 10-20 [facility] Comment on above: Performed By: #### L 500.2500 ####[facility] [address] [place], [address] Calcium [Mass/Vol] 9.1 mg/dL Normal 7.6-11.[address] [facility] Comment on above: Performed By: #### L 500.2500 ####[facility] [address] [place], [address] Chloride [Moles/Vol] 95 mmol/L Low 98-108 [facility] Comment on above: Performed By: #### L 500.2500 ####[facility] [address] [place], [address] CO2 [Moles/Vol] 34.9 mmol/L High 21.0-32.0 [facility] Comment on above: Performed By: #### L 500.2500 ####[facility] [address] [place], [address] Creatinine [Mass/Vol] 1.29 mg/dL High 0.70-1.20 [facility] Comment on above: Performed By: #### L 500.2500 ####[facility] [address] [place], [address] ECRCL 41.21 ml/min Low 50-250 [facility] Comment on above: Performed By: #### L 500.2500 ####[facility] [address] [place], [address] GAP 9 Normal 5-15 [facility] Comment on above: Performed By: #### L 500.2500 ####[facility] [address] [place], [address] GFR/1.73 sq M.predicted among non-blacks MDRD (S/P/Bld) [Vol rate/Area] 56 mL/min/{1.73_m2} Low >60 [facility] Comment on above: Result Comment: mL/m in/1.73m2 CKD-EPI Creatinine Equation (2020) Performed By: #### L 500.2500 ####[facility] [address] [place], [address] Glucose [Mass/Vol] 110 mg/dL High 70-[address] [facility] Comment on above: Performed By: #### L 500.2500 ####[facility] [address] [place], [address] Potassium [Moles/Vol] 3.8 mmol/L Normal 3.3-5.1 [facility] Comment on above: Performed By: #### L 500.2500 ####[facility] [address] [place], [address] Sodium [Moles/Vol] 139 mmol/L Normal 133-[address] [facility] Comment on above: Performed By: #### L 500.2500 ####[facility] [address] [place], [address] Urea nitrogen [Mass/Vol] 23 mg/dL High 4-19 [facility] Comment on above: Performed By: #### L 500.2500 ####[facility] [address] [place], [address] Bedside Glucoseon 05-11-2025 FINGERSTICK GLU 98 mg/dL Normal 74-106 [facility] Comment on above: Result Comment: KODY STRONG OF PATIENT CARE PER NURSING PROTOCOL Performed By: #### L 501.080 ####[facility] [address] [place], [address] Basic Metabolic Profile (BMP )on 05-10-2025 BUN/CRE 16.5 RATIO Normal 10-20 [facility] Comment on above: Performed By: #### L 500.2500 ####[facility] [address] [place], [address] Calcium [Mass/Vol] 8.8 mg/dL Normal 7.6-11.[address] [facility] Comment on above: Performed By: #### L 500.2500 ####[facility] [address] [place], [address] Chloride [Moles/Vol] 97 mmol/L Low 98-108 [facility] Comment on above: Performed By: #### L 500.2500 ####[facility] [address] [place], [address] CO2 [Moles/Vol] 36.8 mmol/L High 21.0-32.0 [facility] Comment on above: Performed By: #### L 500.2500 ####[facility] [address] [place], [address] Creatinine [Mass/Vol] 1.33 mg/dL High 0.70-1.20 [facility] Comment on above: Performed By: #### L 500.2500 ####[facility] [address] [place], [address] ECRCL 39.97 ml/min Low 50-250 [facility] Comment on above: Performed By: #### L 500.2500 ####[facility] [address] [place], [address] GAP 8 Normal 5-15 [facility] Comment on above: Performed By: #### L 500.2500 ####[facility] [address] [place], [address] GFR/1.73 sq M.predicted among non-blacks MDRD (S/P/Bld) [Vol rate/Area] 54 mL/min/{1.73_m2} Low >60 [facility] Comment on above: Result Comment: mL/m in/1.73m2 CKD-EPI Creatinine Equation (2020) Performed By: #### L 500.2500 ####[facility] [address] [place] [place], [address] Glucose [Mass/Vol] 92 mg/dL Normal 70-[address] [facility] Comment on above: Performed By: #### L 500.2500 ####[facility] [address] [place], [address] Potassium [Moles/Vol] 3.3 mmol/L Normal 3.3-5.1 [facility] Comment on above: Performed By: #### L 500.2500 ####[facility] [address] [place], [address] Sodium [Moles/Vol] 142 mmol/L Normal 133-[address] [facility] Comment on above: Performed By: #### L 500.2500 ####[facility] [address] [place], [address] Urea nitrogen [Mass/Vol] 22 mg/dL High 4-19 [facility] Comment on above: Performed By: #### L 500.2500 ####[facility] [address] [place], [address] Bedside Glucoseon 05-10-2025 FINGERSTICK GLU 135 mg/dL High 74-106 [facility] Comment on above: Result Comment: KODY STRONG OF PATIENT CARE PER NURSING PROTOCOL Performed By: #### L 501.080 ####[facility] [address] [place], [address] FINGERSTICK GLU 86 mg/dL Normal 74-106 [facility] Comment on above: Result Comment: KODY STRONG OF PATIENT CARE PER NURSING PROTOCOL Performed By: #### L 501.080 ####[facility] [address] [place], [address] Basic Metabolic Profile (BMP )on 05-09-2025 BUN/CRE 14.3 RATIO Normal - [facility] Comment on above: Performed By: #### L 500.2500 ####[facility] [address] [place], [address] Calcium [Mass/Vol] 8.7 mg/dL Normal 7.6-11.[address] [facility] Comment on above: Performed By: #### L 500.2500 ####[facility] [address] [place], [address] Chloride [Moles/Vol] 97 mmol/L Low 98-108 [facility] Comment on above: Performed By: #### L 500.2500 ####[facility] [address] [place], [address] CO2 [Moles/Vol] 39.0 mmol/L High 21.0-32.0 [facility] Comment on above: Performed By: #### L 500.2500 ####[facility] [address] [place], [address] Creatinine [Mass/Vol] 1.36 mg/dL High 0.70-1.20 [facility] Comment on above: Performed By: #### L 500.2500 ####[facility] [address] [place], [address] ECRCL 39.09 ml/min Low 50-250 [facility] Comment on above: Performed By: #### L 500.2500 ####[facility] [address] [place], [address] GAP 6 Normal 5-15 [facility] Comment on above: Performed By: #### L 500.2500 ####[facility] [address] [place], [address] GFR/1.73 sq M.predicted among non-blacks MDRD (S/P/Bld) [Vol rate/Area] 53 mL/min/{1.73_m2} Low >60 [facility] Comment on above: Result Comment: mL/m in/1.73m2 CKD-EPI Creatinine Equation (2020) Performed By: #### L 500.2500 ####[facility] [address] [place], [address] Glucose [Mass/Vol] 81 mg/dL Normal 70-[address] [facility] Comment on above: Performed By: #### L 500.2500 ####[facility] [address] [place], [address] Potassium [Moles/Vol] 3.2 mmol/L Low 3.3-5.1 [facility] Comment on above: Performed By: #### L 500.2500 ####[facility] [address] [place], [address] Sodium [Moles/Vol] 142 mmol/L Normal 133-[address] [facility] Comment on above: Performed By: #### L 500.2500 ####[facility] [address] [place], [address] Urea nitrogen [Mass/Vol] 20 mg/dL High 4-19 [facility] Comment on above: Performed By: #### L 500.2500 ####[facility] [address] [place], [address] BUN Normal 4-19 [facility] Comment on above: Result Comment: Canc elled via OM: Order cancelled - Patient discharged Performed By: #### L 100.0100, L500.2500 ####[facility] [address] [place], [address] BUN/CRE Normal 10-20 [facility] Comment on above: Result Comment: Canc elled via OM: Order cancelled - Patient discharged Performed By: #### L 100.0100, L500.2500 ####[facility] [address] [place], [address] Calcium Normal 7.6-11.0 [facility] Comment on above: Result Comment: Canc elled via OM: Order cancelled - Patient discharged Performed By: #### L 100.0100, L500.2500 ####[facility] [address] [place], [address] CL Normal 98-108 [facility] Comment on above: Result Comment: Canc elled via OM: Order cancelled - Patient discharged Performed By: #### L 100.0100, L500.2500 ####[facility] [address] [place], [address] CO2 Normal 21.0-32.0 [facility] Comment on above: Result Comment: Canc elled via OM: Order cancelled - Patient discharged Performed By: #### L 100.0100, L500.2500 ####[facility] [address] [place], [address] CREAT,SERUM Normal 0.70-1.20 [facility] Comment on above: Result Comment: Canc elled via OM: Order cancelled - Patient discharged Performed By: #### L 100.0100, L500.2500 ####[facility] [address] [place], [address] eGFR Normal >60 [facility] Comment on above: Result Comment: Canc elled via OM: Order cancelled - Patient discharged Performed By: #### L 100.0100, L500.2500 ####[facility] [address] [place], [address] GAP Normal 5-15 [facility] Comment on above: Result Comment: Canc elled via OM: Order cancelled - Patient discharged Performed By: #### L 100.0100, L500.2500 ####[facility] [address] [place], [address] GLU Normal 70-99 [facility] Comment on above: Result Comment: Canc elled via OM: Order cancelled - Patient discharged Performed By: #### L 100.0100, L500.2500 ####[facility] [address] [place], [address] Potassium Normal 3.3-5.1 [facility] Comment on above: Result Comment: Canc elled via OM: Order cancelled - Patient discharged Performed By: #### L 100.0100, L500.2500 ####[facility] [address] [place], [address] Basic Metabolic Profile (BMP) Normal 133-145 [facility] Comment on above: Result Comment: Canc elled via OM: Order cancelled - Patient discharged Performed By: #### L 100.0100, L500.2500 ####[facility] [address] [place], [address] Bedside Glucoseon 05-09-2025 FINGERSTICK GLU 192 mg/dL High 74-106 [facility] Comment on above: Result Comment: KODY GEMENT OF PATIENT CARE PER NURSING PROTOCOL Performed By: #### L 501.080 ####[facility] [address] [place], [address] FINGERSTICK GLU 82 mg/dL Normal 74-106 [facility] Comment on above: Result Comment: KODY GEMENT OF PATIENT CARE PER NURSING PROTOCOL Performed By: #### L 501.080 ####[facility] [address] [place], [address] FINGERSTICK GLU 75 mg/dL Normal 74-106 [facility] Comment on above: Result Comment: KODY STRONG OF PATIENT CARE PER NURSING PROTOCOL Performed By: #### L 501.080 ####[facility] [address] [place], [address] CBC W/Diff, Automatedon 09-2 0-2024 Absolute Neut Normal 2.0-7.7 [facility] Comment on above: Result Comment: Canc elled via OM: Order cancelled - Patient discharged Performed By: #### L 100.0100, L500.2500 ####[facility] [address] [place], [address] HCT Normal 40-54 [facility] Comment on above: Result Comment: Canc elled via OM: Order cancelled - Patient discharged Performed By: #### L 100.0100, L500.2500 ####[facility] [address] [place], [address] HGB Normal 13.0-16.5 [facility] Comment on above: Result Comment: Canc elled via OM: Order cancelled - Patient discharged Performed By: #### L 100.0100, L500.2500 ####[facility] [address] [place], [address] MCH Normal 27.0-32.0 [facility] Comment on above: Result Comment: Canc elled via OM: Order cancelled - Patient discharged Performed By: #### L 100.0100, L500.2500 ####[facility] [address] [place], [address] MCHC Normal 32-36 [facility] Comment on above: Result Comment: Canc elled via OM: Order cancelled - Patient discharged Performed By: #### L 100.0100, L500.2500 ####[facility] [address] [place], [address] MCV Normal 80-94 [facility] Comment on above: Result Comment: Canc elled via OM: Order cancelled - Patient discharged Performed By: #### L 100.0100, L500.2500 ####[facility] [address] [place], [address] NEUT% Normal 47-70 [facility] Comment on above: Result Comment: Canc elled via OM: Order cancelled - Patient discharged Performed By: #### L 100.0100, L500.2500 ####[facility] [address] [place], [address] PLT Normal 150-450 [facility] Comment on above: Result Comment: Canc elled via OM: Order cancelled - Patient discharged Performed By: #### L 100.0100, L500.2500 ####[facility] [address] [place], [address] RBC Normal 4.6-6.2 [facility] Comment on above: Result Comment: Canc elled via OM: Order cancelled - Patient discharged Performed By: #### L 100.0100, L500.2500 ####[facility] [address] [place], [address] RDW CV Normal 11.6-14.6 [facility] Comment on above: Result Comment: Canc elled via OM: Order cancelled - Patient discharged Performed By: #### L 100.0100, L500.2500 ####[facility] [address] [place], [address] RDW SD Normal 35.1-43.9 [facility] Comment on above: Result Comment: Canc elled via OM: Order cancelled - Patient discharged Performed By: #### L 100.0100, L500.2500 ####[facility] [address] [place], [address] WBC Normal 4.4-11.0 [facility] Comment on above: Result Comment: Canc elled via OM: Order cancelled - Patient discharged Performed By: #### L 100.0100, L500.2500 ####[facility] [address] [place], [address] Basic Metabolic Profile (BMP )on 05-08-2025 BUN/CRE 16.1 RATIO Normal 10-20 [facility] Comment on above: Performed By: #### L 100.0100, L500.2500 ####[facility] [address] [place], [address] Calcium [Mass/Vol] 8.8 mg/dL Normal 7.6-11.[address] [facility] Comment on above: Performed By: #### L 100.0100, L500.2500 ####[facility] [address] [place], [address] Chloride [Moles/Vol] 95 mmol/L Low 98-108 [facility] Comment on above: Performed By: #### L 100.0100, L500.2500 ####[facility] [address] [place], [address] CO2 [Moles/Vol] 35.3 mmol/L High 21.0-32.0 [facility] Comment on above: Performed By: #### L 100.0100, L500.2500 ####[facility] [address] [place], [address] Creatinine [Mass/Vol] 1.30 mg/dL High 0.70-1.20 [facility] Comment on above: Performed By: #### L 100.0100, L500.2500 ####[facility] [address] [place], [address] ECRCL 40.90 ml/min Low 50-250 [facility] Comment on above: Performed By: #### L 100.0100, L500.2500 ####[facility] [address] [place], [address] GAP 12 Normal 5-15 [facility] Comment on above: Performed By: #### L 100.0100, L500.2500 ####[facility] [address] [place], [address] GFR/1.73 sq M.predicted among non-blacks MDRD (S/P/Bld) [Vol rate/Area] 56 mL/min/{1.73_m2} Low >60 [facility] Comment on above: Result Comment: mL/m in/1.73m2 CKD-EPI Creatinine Equation (2020) Performed By: #### L 100.0100, L500.2500 ####[facility] [address] [place], [address] Glucose [Mass/Vol] 87 mg/dL Normal 70-[address] [facility] Comment on above: Performed By: #### L 100.0100, L500.2500 ####[facility] [address] [place], [address] Potassium [Moles/Vol] 2.7 mmol/L Invalid Interpretation Code 3.3-5.1 [facility] Comment on above: Result Comment: Crit ical Result(s) Called at: 0945 05/08/2025 by: ABNER??Results read back by same. Performed By: #### L 100.0100, L500.2500 ####[facility] [address] [place], [address] Sodium [Moles/Vol] 143 mmol/L Normal 133-[address] [facility] Comment on above: Performed By: #### L 100.0100, L500.2500 ####[facility] [address] [place], [address] Urea nitrogen [Mass/Vol] 21 mg/dL High 4-19 [facility] Comment on above: Performed By: #### L 100.0100, L500.2500 ####[facility] [address] [place], [address] BUN Normal 4-19 [facility] Comment on above: Result Comment: Canc elled via OM: Order cancelled - Patient discharged Performed By: #### L 500.2500, L100.0100 ####[facility] [address] [place], [address] BUN/CRE Normal 10-20 [facility] Comment on above: Result Comment: Canc elled via OM: Order cancelled - Patient discharged Performed By: #### L 500.2500, L100.0100 ####[facility] [address] [place], [address] Calcium Normal 7.6-11.0 [facility] Comment on above: Result Comment: Canc elled via OM: Order cancelled - Patient discharged Performed By: #### L 500.2500, L100.0100 ####[facility] [address] [place], [address] CL Normal 98-108 [facility] Comment on above: Result Comment: Canc elled via OM: Order cancelled - Patient discharged Performed By: #### L 500.2500, L100.0100 ####[facility] [address] [place], [address] CO2 Normal 21.0-32.0 [facility] Comment on above: Result Comment: Canc elled via OM: Order cancelled - Patient discharged Performed By: #### L 500.2500, L100.0100 ####[facility] [address] [place], [address] CREAT,SERUM Normal 0.70-1.20 [facility] Comment on above: Result Comment: Canc elled via OM: Order cancelled - Patient discharged Performed By: #### L 500.2500, L100.0100 ####[facility] [address] [place], [address] eGFR Normal >60 [facility] Comment on above: Result Comment: Canc elled via OM: Order cancelled - Patient discharged Performed By: #### L 500.2500, L100.0100 ####[facility] [address] [place], [address] GAP Normal 5-15 [facility] Comment on above: Result Comment: Canc elled via OM: Order cancelled - Patient discharged Performed By: #### L 500.2500, L100.0100 ####[facility] [address] [place], [address] GLU Normal 70-99 [facility] Comment on above: Result Comment: Canc elled via OM: Order cancelled - Patient discharged Performed By: #### L 500.2500, L100.0100 ####[facility] [address] [place], [address] Potassium Normal 3.3-5.1 [facility] Comment on above: Result Comment: Canc elled via OM: Order cancelled - Patient discharged Performed By: #### L 500.2500, L100.0100 ####[facility] [address] [place], [address] Basic Metabolic Profile (BMP) Normal 133-145 [facility] Comment on above: Result Comment: Canc elled via OM: Order cancelled - Patient discharged Performed By: #### L 500.2500, L100.0100 ####[facility] [address] [place], [address] Bedside Glucoseon 05-08-2025 FINGERSTICK GLU 187 mg/dL High 74-106 [facility] Comment on above: Result Comment: KODY GEMENT OF PATIENT CARE PER NURSING PROTOCOL Performed By: #### L 501.080 ####[facility] [address] [place], [address] FINGERSTICK GLU 86 mg/dL Normal 74-106 [facility] Comment on above: Result Comment: KODY GEMENT OF PATIENT CARE PER NURSING PROTOCOL Performed By: #### L 501.080 ####[facility] [address] [place], [address] CBC W/Diff, Automatedon 04-20 Absolute Lymph 0.77 X10 3/uL Low 0.83-4.51 [facility] Comment on above: Performed By: #### L 100.0100, L500.2500 ####[facility] [address] [place], [address] Absolute Neut 4.0 X10 3/uL Normal 2.0-7.7 [facility] Comment on above: Performed By: #### L 100.0100, L500.2500 ####[facility] [address] [place], [address] Basophils/100 WBC (Bld) 0.3 % Normal 0-[address] [facility] Comment on above: Performed By: #### L 100.0100, L500.2500 ####[facility] [address] [place], [address] Eosinophils/100 WBC (Bld) 5.2 % High 0-5 [facility] Comment on above: Performed By: #### L 100.0100, L500.2500 ####[facility] [address] [place], [address] Erythrocyte distribution width (RBC) [Ratio] 15.9 % High 11.6-14.6 [facility] Comment on above: Performed By: #### L 100.0100, L500.2500 ####[facility] [address] [place], [address] Hematocrit (Bld) [Volume fraction] 32.0 % Low 40-54 [facility] Comment on above: Performed By: #### L 100.0100, L500.2500 ####[facility] [address] [place], [address] Hemoglobin (Bld) [Mass/Vol] 9.5 g/dL Low 13.0-16.5 [facility] Comment on above: Performed By: #### L 100.0100, L500.2500 ####[facility] [address] [place], [address] IG% 0.900 Normal 0.0-0.9 [facility] Comment on above: Result Comment: IG% - Immature Granulocytes (promyelocytes, myelocytes andmetamyelocytes) > 1% indicates that a LEFT SHIFT is Present. Performed By: #### L 100.0100, L500.2500 ####[facility] [address] [place], [address] Lymphocytes/100 WBC (Bld) 13.3 % Low 19-41 [facility] Comment on above: Performed By: #### L 100.0100, L500.2500 ####[facility] [address] [place], [address] MCH (RBC) [Entitic mass] 27.1 pg Normal 27.0-32.0 [facility] Comment on above: Performed By: #### L 100.0100, L500.2500 ####[facility] [address] [place], [address] MCHC (RBC) [Mass/Vol] 29.7 g/dL Low 32-36 [facility] Comment on above: Performed By: #### L 100.0100, L500.2500 ####[facility] [address] [place], [address] MCV (RBC) [Entitic vol] 91.4 fL Normal 80-[address] [facility] Comment on above: Performed By: #### L 100.0100, L500.2500 ####[facility] [address] [place], [address] Monocytes/100 WBC (Bld) 12.0 % High 0-[address] [facility] Comment on above: Performed By: #### L 100.0100, L500.2500 ####[facility] [address] [place], [address] Neutrophils/100 WBC (Bld) 68.3 % Normal 47-70 [facility] Comment on above: Performed By: #### L 100.0100, L500.2500 ####[facility] [address] [place], [address] Nucleated RBC (Bld) [#/Vol] 0 10*3/uL Normal 0-5 [facility] Comment on above: Performed By: #### L 100.0100, L500.2500 ####[facility] [address] [place], [address] Platelet mean volume (Bld) [Entitic vol] 10.0 fL Normal 6.2-12.0 [facility] Comment on above: Performed By: #### L 100.0100, L500.2500 ####[facility] [address] [place], [address] Platelets (Bld) [#/Vol] 170 10*3/uL Normal 150-450 [facility] Comment on above: Performed By: #### L 100.0100, L500.2500 ####[facility] [address] [place], [address] RBC (Bld) [#/Vol] 3.50 10*6/uL Low 4.6-6.2 [facility] Comment on above: Performed By: #### L 100.0100, L500.2500 ####[facility] [address] [place], [address] RDW SD 53.2 fl High 35.1-43.9 [facility] Comment on above: Performed By: #### L 100.0100, L500.2500 ####[facility] [address] [place], [address] WBC (Bld) [#/Vol] 5.8 10*3/uL Normal 4.4-11.[address] [facility] Comment on above: Performed By: #### L 100.0100, L500.2500 ####[facility] [address] [place], [address] Absolute Neut Normal 2.0-7.7 [facility] Comment on above: Result Comment: Canc elled via OM: Order cancelled - Patient discharged Performed By: #### L 500.2500, L100.0100 ####[facility] [address] [place], [address] HCT Normal 40-54 [facility] Comment on above: Result Comment: Canc elled via OM: Order cancelled - Patient discharged Performed By: #### L 500.2500, L100.0100 ####[facility] [address] [place], [address] HGB Normal 13.0-16.5 [facility] Comment on above: Result Comment: Canc elled via OM: Order cancelled - Patient discharged Performed By: #### L 500.2500, L100.0100 ####[facility] [address] [place], [address] MCH Normal 27.0-32.0 [facility] Comment on above: Result Comment: Canc elled via OM: Order cancelled - Patient discharged Performed By: #### L 500.2500, L100.0100 ####[facility] [address] [place], [address] MCHC Normal 32-36 [facility] Comment on above: Result Comment: Canc elled via OM: Order cancelled - Patient discharged Performed By: #### L 500.2500, L100.0100 ####[facility] [address] [place], [address] MCV Normal 80-94 [facility] Comment on above: Result Comment: Canc elled via OM: Order cancelled - Patient discharged Performed By: #### L 500.2500, L100.0100 ####[facility] [address] [place], [address] NEUT% Normal 47-70 [facility] Comment on above: Result Comment: Canc elled via OM: Order cancelled - Patient discharged Performed By: #### L 500.2500, L100.0100 ####[facility] [address] [place], [address] PLT Normal 150-450 [facility] Comment on above: Result Comment: Canc elled via OM: Order cancelled - Patient discharged Performed By: #### L 500.2500, L100.0100 ####[facility] [address] [place], [address] RBC Normal 4.6-6.2 [facility] Comment on above: Result Comment: Canc elled via OM: Order cancelled - Patient discharged Performed By: #### L 500.2500, L100.0100 ####[facility] [address] [place], [address] RDW CV Normal 11.6-14.6 [facility] Comment on above: Result Comment: Canc elled via OM: Order cancelled - Patient discharged Performed By: #### L 500.2500, L100.0100 ####[facility] [address] [place], [address] RDW SD Normal 35.1-43.9 [facility] Comment on above: Result Comment: Canc elled via OM: Order cancelled - Patient discharged Performed By: #### L 500.2500, L100.0100 ####[facility] [address] [place], [address] WBC Normal 4.4-11.0 [facility] Comment on above: Result Comment: Canc elled via OM: Order cancelled - Patient discharged Performed By: #### L 500.2500, L100.0100 ####[facility] [address] [place], [address] Basic Metabolic Profile (BMP )on 05-07-2025 BUN Normal 4-19 [facility] Comment on above: Result Comment: Canc elled via OM: Order cancelled - Patient discharged Performed By: #### L 500.2500, L100.0100 ####[facility] [address] [place], [address] BUN/CRE Normal 10-20 [facility] Comment on above: Result Comment: Canc elled via OM: Order cancelled - Patient discharged Performed By: #### L 500.2500, L100.0100 ####[facility] [address] [place], [address] Calcium Normal 7.6-11.0 [facility] Comment on above: Result Comment: Canc elled via OM: Order cancelled - Patient discharged Performed By: #### L 500.2500, L100.0100 ####[facility] [address] [place], [address] CL Normal 98-108 [facility] Comment on above: Result Comment: Canc elled via OM: Order cancelled - Patient discharged Performed By: #### L 500.2500, L100.0100 ####[facility] [address] [place], [address] CO2 Normal 21.0-32.0 [facility] Comment on above: Result Comment: Canc elled via OM: Order cancelled - Patient discharged Performed By: #### L 500.2500, L100.0100 ####[facility] [address] [place], [address] CREAT,SERUM Normal 0.70-1.20 [facility] Comment on above: Result Comment: Canc elled via OM: Order cancelled - Patient discharged Performed By: #### L 500.2500, L100.0100 ####[facility] [address] [place], [address] eGFR Normal >60 [facility] Comment on above: Result Comment: Canc elled via OM: Order cancelled - Patient discharged Performed By: #### L 500.2500, L100.0100 ####[facility] [address] [place], [address] GAP Normal 5-15 [facility] Comment on above: Result Comment: Canc elled via OM: Order cancelled - Patient discharged Performed By: #### L 500.2500, L100.0100 ####[facility] [address] [place], [address] GLU Normal 70-99 [facility] Comment on above: Result Comment: Canc elled via OM: Order cancelled - Patient discharged Performed By: #### L 500.2500, L100.0100 ####[facility] [address] [place], [address] Potassium Normal 3.3-5.1 [facility] Comment on above: Result Comment: Canc elled via OM: Order cancelled - Patient discharged Performed By: #### L 500.2500, L100.0100 ####[facility] [address] [place], [address] Basic Metabolic Profile (BMP) Normal 133-145 [facility] Comment on above: Result Comment: Canc elled via OM: Order cancelled - Patient discharged Performed By: #### L 500.2500, L100.0100 ####[facility] [address] [place], [address] Bedside Glucoseon 05-07-2025 FINGERSTICK GLU 195 mg/dL High 74-106 [facility] Comment on above: Result Comment: KODY STRONG OF PATIENT CARE PER NURSING PROTOCOL Performed By: #### L 501.080 ####[facility] [address] [place], [address] FINGERSTICK GLU 93 mg/dL Normal 74-106 [facility] Comment on above: Result Comment: KODY GEMENT OF PATIENT CARE PER NURSING PROTOCOL Performed By: #### L 501.080 ####[facility] [address] [place], [address] FINGERSTICK GLU 115 mg/dL High 74-106 [facility] Comment on above: Result Comment: KODY GEMENT OF PATIENT CARE PER NURSING PROTOCOL Performed By: #### L 501.080 ####[facility] [address] [place], [address] CBC W/Diff, Automatedon 04-20 Absolute Neut Normal 2.0-7.7 [facility] Comment on above: Result Comment: Canc elled via OM: Order cancelled - Patient discharged Performed By: #### L 500.2500, L100.0100 ####[facility] [address] [place], [address] HCT Normal 40-54 [facility] Comment on above: Result Comment: Canc elled via OM: Order cancelled - Patient discharged Performed By: #### L 500.2500, L100.0100 ####[facility] [address] [place], [address] HGB Normal 13.0-16.5 [facility] Comment on above: Result Comment: Canc elled via OM: Order cancelled - Patient discharged Performed By: #### L 500.2500, L100.0100 ####[facility] [address] [place], [address] MCH Normal 27.0-32.0 [facility] Comment on above: Result Comment: Canc elled via OM: Order cancelled - Patient discharged Performed By: #### L 500.2500, L100.0100 ####[facility] [address] [place], [address] MCHC Normal 32-36 [facility] Comment on above: Result Comment: Canc elled via OM: Order cancelled - Patient discharged Performed By: #### L 500.2500, L100.0100 ####[facility] [address] [place], [address] MCV Normal 80-94 [facility] Comment on above: Result Comment: Canc elled via OM: Order cancelled - Patient discharged Performed By: #### L 500.2500, L100.0100 ####[facility] [address] [place], [address] NEUT% Normal 47-70 [facility] Comment on above: Result Comment: Canc elled via OM: Order cancelled - Patient discharged Performed By: #### L 500.2500, L100.0100 ####[facility] [address] [place], [address] PLT Normal 150-450 [facility] Comment on above: Result Comment: Canc elled via OM: Order cancelled - Patient discharged Performed By: #### L 500.2500, L100.0100 ####[facility] [address] [place], [address] RBC Normal 4.6-6.2 [facility] Comment on above: Result Comment: Canc elled via OM: Order cancelled - Patient discharged Performed By: #### L 500.2500, L100.0100 ####[facility] [address] [place], [address] RDW CV Normal 11.6-14.6 [facility] Comment on above: Result Comment: Canc elled via OM: Order cancelled - Patient discharged Performed By: #### L 500.2500, L100.0100 ####[facility] [address] [place], [address] RDW SD Normal 35.1-43.9 [facility] Comment on above: Result Comment: Canc elled via OM: Order cancelled - Patient discharged Performed By: #### L 500.2500, L100.0100 ####[facility] [address] [place], [address] WBC Normal 4.4-11.0 [facility] Comment on above: Result Comment: Canc elled via OM: Order cancelled - Patient discharged Performed By: #### L 500.2500, L100.0100 ####[facility] [address] [place], [address] Basic Metabolic Profile (BMP )on 05-06-2025 BUN Normal 4-19 [facility] Comment on above: Result Comment: Canc elled via OM: Order cancelled - Patient discharged Performed By: #### L 500.2500, L100.0100 ####[facility] [address] [place], [address] BUN/CRE Normal 10-20 [facility] Comment on above: Result Comment: Canc elled via OM: Order cancelled - Patient discharged Performed By: #### L 500.2500, L100.0100 ####[facility] [address] [place], [address] Calcium Normal 7.6-11.0 [facility] Comment on above: Result Comment: Canc elled via OM: Order cancelled - Patient discharged Performed By: #### L 500.2500, L100.0100 ####[facility] [address] [place], [address] CL Normal 98-108 [facility] Comment on above: Result Comment: Canc elled via OM: Order cancelled - Patient discharged Performed By: #### L 500.2500, L100.0100 ####[facility] [address] [place], [address] CO2 Normal 21.0-32.0 [facility] Comment on above: Result Comment: Canc elled via OM: Order cancelled - Patient discharged Performed By: #### L 500.2500, L100.0100 ####[facility] [address] [place], [address] CREAT,SERUM Normal 0.70-1.20 [facility] Comment on above: Result Comment: Canc elled via OM: Order cancelled - Patient discharged Performed By: #### L 500.2500, L100.0100 ####[facility] [address] [place], [address] eGFR Normal >60 [facility] Comment on above: Result Comment: Canc elled via OM: Order cancelled - Patient discharged Performed By: #### L 500.2500, L100.0100 ####[facility] [address] [place], [address] GAP Normal 5-15 [facility] Comment on above: Result Comment: Canc elled via OM: Order cancelled - Patient discharged Performed By: #### L 500.2500, L100.0100 ####[facility] [address] [place], [address] GLU Normal 70-99 [facility] Comment on above: Result Comment: Canc elled via OM: Order cancelled - Patient discharged Performed By: #### L 500.2500, L100.0100 ####[facility] [address] [place], [address] Potassium Normal 3.3-5.1 [facility] Comment on above: Result Comment: Canc elled via OM: Order cancelled - Patient discharged Performed By: #### L 500.2500, L100.0100 ####[facility] [address] [place], [address] Basic Metabolic Profile (BMP) Normal 133-145 [facility] Comment on above: Result Comment: Canc elled via OM: Order cancelled - Patient discharged Performed By: #### L 500.2500, L100.0100 ####[facility] [address] [place], [address] Bedside Glucoseon 05-06-2025 FINGERSTICK GLU 173 mg/dL High 74-106 [facility] Comment on above: Result Comment: KODY GEMENT OF PATIENT CARE PER NURSING PROTOCOL Performed By: #### L 501.080 ####[facility] [address] [place], [address] FINGERSTICK GLU 219 mg/dL High 74-106 [facility] Comment on above: Result Comment: OKDY GEMENT OF PATIENT CARE PER NURSING PROTOCOL Performed By: #### L 501.080 ####[facility] [address] [place], [address] FINGERSTICK GLU 87 mg/dL Normal 74-106 [facility] Comment on above: Result Comment: KODY GEMENT OF PATIENT CARE PER NURSING PROTOCOL Performed By: #### L 501.080 ####[facility] [address] [place], [address] CBC W/Diff, Automatedon 04-20 Absolute Neut Normal 2.0-7.7 [facility] Comment on above: Result Comment: Canc elled via OM: Order cancelled - Patient discharged Performed By: #### L 500.2500, L100.0100 ####[facility] [address] [place], [address] HCT Normal 40-54 [facility] Comment on above: Result Comment: Canc elled via OM: Order cancelled - Patient discharged Performed By: #### L 500.2500, L100.0100 ####[facility] [address] [place], [address] HGB Normal 13.0-16.5 [facility] Comment on above: Result Comment: Canc elled via OM: Order cancelled - Patient discharged Performed By: #### L 500.2500, L100.0100 ####[facility] [address] [place], [address] MCH Normal 27.0-32.0 [facility] Comment on above: Result Comment: Canc elled via OM: Order cancelled - Patient discharged Performed By: #### L 500.2500, L100.0100 ####[facility] [address] [place], [address] MCHC Normal 32-36 [facility] Comment on above: Result Comment: Canc elled via OM: Order cancelled - Patient discharged Performed By: #### L 500.2500, L100.0100 ####[facility] [address] [place], [address] MCV Normal 80-94 [facility] Comment on above: Result Comment: Canc elled via OM: Order cancelled - Patient discharged Performed By: #### L 500.2500, L100.0100 ####[facility] [address] [place], [address] NEUT% Normal 47-70 [facility] Comment on above: Result Comment: Canc elled via OM: Order cancelled - Patient discharged Performed By: #### L 500.2500, L100.0100 ####[facility] [address] [place], [address] PLT Normal 150-450 [facility] Comment on above: Result Comment: Canc elled via OM: Order cancelled - Patient discharged Performed By: #### L 500.2500, L100.0100 ####[facility] [address] [place], [address] RBC Normal 4.6-6.2 [facility] Comment on above: Result Comment: Canc elled via OM: Order cancelled - Patient discharged Performed By: #### L 500.2500, L100.0100 ####[facility] [address] [place], [address] RDW CV Normal 11.6-14.6 [facility] Comment on above: Result Comment: Canc elled via OM: Order cancelled - Patient discharged Performed By: #### L 500.2500, L100.0100 ####[facility] [address] [place], [address] RDW SD Normal 35.1-43.9 [facility] Comment on above: Result Comment: Canc elled via OM: Order cancelled - Patient discharged Performed By: #### L 500.2500, L100.0100 ####[facility] [address] [place], [address] WBC Normal 4.4-11.0 [facility] Comment on above: Result Comment: Canc elled via OM: Order cancelled - Patient discharged Performed By: #### L 500.2500, L100.0100 ####[facility] [address] [place], [address] Basic Metabolic Profile (BMP )on 05-05-2025 BUN Normal 4-19 [facility] Comment on above: Result Comment: Canc elled via OM: Order cancelled - Patient discharged Performed By: #### L 500.2500, L100.0100 ####[facility] [address] [place], [address] BUN/CRE Normal 10-20 [facility] Comment on above: Result Comment: Canc elled via OM: Order cancelled - Patient discharged Performed By: #### L 500.2500, L100.0100 ####[facility] [address] [place], [address] Calcium Normal 7.6-11.0 [facility] Comment on above: Result Comment: Canc elled via OM: Order cancelled - Patient discharged Performed By: #### L 500.2500, L100.0100 ####[facility] [address] [place], [address] CL Normal 98-108 [facility] Comment on above: Result Comment: Canc elled via OM: Order cancelled - Patient discharged Performed By: #### L 500.2500, L100.0100 ####[facility] [address] [place], [address] CO2 Normal 21.0-32.0 [facility] Comment on above: Result Comment: Canc elled via OM: Order cancelled - Patient discharged Performed By: #### L 500.2500, L100.0100 ####[facility] [address] [place], [address] CREAT,SERUM Normal 0.70-1.20 [facility] Comment on above: Result Comment: Canc elled via OM: Order cancelled - Patient discharged Performed By: #### L 500.2500, L100.0100 ####[facility] [address] [place], [address] eGFR Normal >60 [facility] Comment on above: Result Comment: Canc elled via OM: Order cancelled - Patient discharged Performed By: #### L 500.2500, L100.0100 ####[facility] [address] [place], [address] GAP Normal 5-15 [facility] Comment on above: Result Comment: Canc elled via OM: Order cancelled - Patient discharged Performed By: #### L 500.2500, L100.0100 ####[facility] [address] [place], [address] GLU Normal 70-99 [facility] Comment on above: Result Comment: Canc elled via OM: Order cancelled - Patient discharged Performed By: #### L 500.2500, L100.0100 ####[facility] [address] [place], [address] Potassium Normal 3.3-5.1 [facility] Comment on above: Result Comment: Canc elled via OM: Order cancelled - Patient discharged Performed By: #### L 500.2500, L100.0100 ####[facility] [address] [place], [address] Basic Metabolic Profile (BMP) Normal 133-145 [facility] Comment on above: Result Comment: Canc elled via OM: Order cancelled - Patient discharged Performed By: #### L 500.2500, L100.0100 ####[facility] [address] [place], [address] Bedside Glucoseon 05-05-2024 FINGERSTICK GLU 134 mg/dL High 74-106 [facility] Comment on above: Result Comment: KODY GEMENT OF PATIENT CARE PER NURSING PROTOCOL Performed By: #### L 501.080 ####[facility] [address] [place], [address] FINGERSTICK GLU 92 mg/dL Normal 74-106 [facility] Comment on above: Result Comment: KODY GEMENT OF PATIENT CARE PER NURSING PROTOCOL Performed By: #### L 501.080 ####[facility] [address] [place], [address] CBC W/Diff, Automatedon - Absolute Neut Normal 2.0-7.7 [facility] Comment on above: Result Comment: Canc elled via OM: Order cancelled - Patient discharged Performed By: #### L 500.2500, L100.0100 ####[facility] [address] [place], [address] HCT Normal 40-54 [facility] Comment on above: Result Comment: Canc elled via OM: Order cancelled - Patient discharged Performed By: #### L 500.2500, L100.0100 ####[facility] [address] [place], [address] HGB Normal 13.0-16.5 [facility] Comment on above: Result Comment: Canc elled via OM: Order cancelled - Patient discharged Performed By: #### L 500.2500, L100.0100 ####[facility] [address] [place], [address] MCH Normal 27.0-32.0 [facility] Comment on above: Result Comment: Canc elled via OM: Order cancelled - Patient discharged Performed By: #### L 500.2500, L100.0100 ####[facility] [address] [place], [address] MCHC Normal 32-36 [facility] Comment on above: Result Comment: Canc elled via OM: Order cancelled - Patient discharged Performed By: #### L 500.2500, L100.0100 ####[facility] [address] [place], [address] MCV Normal 80-94 [facility] Comment on above: Result Comment: Canc elled via OM: Order cancelled - Patient discharged Performed By: #### L 500.2500, L100.0100 ####[facility] [address] [place], [address] NEUT% Normal 47-70 [facility] Comment on above: Result Comment: Canc elled via OM: Order cancelled - Patient discharged Performed By: #### L 500.2500, L100.0100 ####[facility] [address] [place], [address] PLT Normal 150-450 [facility] Comment on above: Result Comment: Canc elled via OM: Order cancelled - Patient discharged Performed By: #### L 500.2500, L100.0100 ####[facility] [address] [place], [address] RBC Normal 4.6-6.2 [facility] Comment on above: Result Comment: Canc elled via OM: Order cancelled - Patient discharged Performed By: #### L 500.2500, L100.0100 ####[facility] [address] [place], [address] RDW CV Normal 11.6-14.6 [facility] Comment on above: Result Comment: Canc elled via OM: Order cancelled - Patient discharged Performed By: #### L 500.2500, L100.0100 ####[facility] [address] [place], [address] RDW SD Normal 35.1-43.9 [facility] Comment on above: Result Comment: Canc elled via OM: Order cancelled - Patient discharged Performed By: #### L 500.2500, L100.0100 ####[facility] [address] [place], [address] WBC Normal 4.4-11.0 [facility] Comment on above: Result Comment: Canc elled via OM: Order cancelled - Patient discharged Performed By: #### L 500.2500, L100.0100 ####[facility] [address] [place], [address] Basic Metabolic Profile (BMP )on 05-04-2025 BUN Normal 4-19 [facility] Comment on above: Result Comment: Canc elled via OM: Order cancelled - Patient discharged Performed By: #### L 500.2500, L100.0100 ####[facility] [address] [place], [address] BUN/CRE Normal 10-20 [facility] Comment on above: Result Comment: Canc elled via OM: Order cancelled - Patient discharged Performed By: #### L 500.2500, L100.0100 ####[facility] [address] [place], [address] Calcium Normal 7.6-11.0 [facility] Comment on above: Result Comment: Canc elled via OM: Order cancelled - Patient discharged Performed By: #### L 500.2500, L100.0100 ####[facility] [address] [place], [address] CL Normal 98-108 [facility] Comment on above: Result Comment: Canc elled via OM: Order cancelled - Patient discharged Performed By: #### L 500.2500, L100.0100 ####[facility] [address] [place], [address] CO2 Normal 21.0-32.0 [facility] Comment on above: Result Comment: Canc elled via OM: Order cancelled - Patient discharged Performed By: #### L 500.2500, L100.0100 ####[facility] [address] [place], [address] CREAT,SERUM Normal 0.70-1.20 [facility] Comment on above: Result Comment: Canc elled via OM: Order cancelled - Patient discharged Performed By: #### L 500.2500, L100.0100 ####[facility] [address] [place], [address] eGFR Normal >60 [facility] Comment on above: Result Comment: Canc elled via OM: Order cancelled - Patient discharged Performed By: #### L 500.2500, L100.0100 ####[facility] [address] [place], [address] GAP Normal 5-15 [facility] Comment on above: Result Comment: Canc elled via OM: Order cancelled - Patient discharged Performed By: #### L 500.2500, L100.0100 ####[facility] [address] [place], [address] GLU Normal 70-99 [facility] Comment on above: Result Comment: Canc elled via OM: Order cancelled - Patient discharged Performed By: #### L 500.2500, L100.0100 ####[facility] [address] [place], [address] Potassium Normal 3.3-5.1 [facility] Comment on above: Result Comment: Canc elled via OM: Order cancelled - Patient discharged Performed By: #### L 500.2500, L100.0100 ####[facility] [address] [place], [address] Basic Metabolic Profile (BMP) Normal 133-145 [facility] Comment on above: Result Comment: Canc elled via OM: Order cancelled - Patient discharged Performed By: #### L 500.2500, L100.0100 ####[facility] [address] [place], [address] Bedside Glucoseon 05-04-2024 FINGERSTICK GLU 193 mg/dL High 74-106 [facility] Comment on above: Result Comment: KODY GEMENT OF PATIENT CARE PER NURSING PROTOCOL Performed By: #### L 501.080 ####[facility] [address] [place], [address] FINGERSTICK GLU 81 mg/dL Normal 74-106 [facility] Comment on above: Result Comment: KODY GEMENT OF PATIENT CARE PER NURSING PROTOCOL Performed By: #### L 501.080 ####[facility] [address] [place], [address] CBC W/Diff, Automatedon - Absolute Neut Normal 2.0-7.7 [facility] Comment on above: Result Comment: Canc elled via OM: Order cancelled - Patient discharged Performed By: #### L 500.2500, L100.0100 ####[facility] [address] [place], [address] HCT Normal 40-54 [facility] Comment on above: Result Comment: Canc elled via OM: Order cancelled - Patient discharged Performed By: #### L 500.2500, L100.0100 ####[facility] [address] [place], [address] HGB Normal 13.0-16.5 [facility] Comment on above: Result Comment: Canc elled via OM: Order cancelled - Patient discharged Performed By: #### L 500.2500, L100.0100 ####[facility] [address] [place], [address] MCH Normal 27.0-32.0 [facility] Comment on above: Result Comment: Canc elled via OM: Order cancelled - Patient discharged Performed By: #### L 500.2500, L100.0100 ####[facility] [address] [place], [address] MCHC Normal 32-36 [facility] Comment on above: Result Comment: Canc elled via OM: Order cancelled - Patient discharged Performed By: #### L 500.2500, L100.0100 ####[facility] [address] [place], [address] MCV Normal 80-94 [facility] Comment on above: Result Comment: Canc elled via OM: Order cancelled - Patient discharged Performed By: #### L 500.2500, L100.0100 ####[facility] [address] [place], [address] NEUT% Normal 47-70 [facility] Comment on above: Result Comment: Canc elled via OM: Order cancelled - Patient discharged Performed By: #### L 500.2500, L100.0100 ####[facility] [address] [place], [address] PLT Normal 150-450 [facility] Comment on above: Result Comment: Canc elled via OM: Order cancelled - Patient discharged Performed By: #### L 500.2500, L100.0100 ####[facility] [address] [place], [address] RBC Normal 4.6-6.2 [facility] Comment on above: Result Comment: Canc elled via OM: Order cancelled - Patient discharged Performed By: #### L 500.2500, L100.0100 ####[facility] [address] [place], [address] RDW CV Normal 11.6-14.6 [facility] Comment on above: Result Comment: Canc elled via OM: Order cancelled - Patient discharged Performed By: #### L 500.2500, L100.0100 ####[facility] [address] [place], [address] RDW SD Normal 35.1-43.9 [facility] Comment on above: Result Comment: Canc elled via OM: Order cancelled - Patient discharged Performed By: #### L 500.2500, L100.0100 ####[facility] [address] [place], [address] WBC Normal 4.4-11.0 [facility] Comment on above: Result Comment: Canc elled via OM: Order cancelled - Patient discharged Performed By: #### L 500.2500, L100.0100 ####[facility] [address] [place], [address] EGD Reporton 05-04-2025 EGD Report Normal [facility] Glucose measurement at [facility] deOrdered By: Jakob Goddard on 05-04-2025 Glucose [Mass/Vol] 193 mg/dL High 74-[address] [facility] Glucose measurement at [facility] deOrdered By: Valdez Olivo on 05-04-2025 Glucose [Mass/Vol] 81 mg/dL 74-[address] [facility] HH, Hemoglobin AND Hematocri ton 05-04-2025 Hematocrit (Bld) [Volume fraction] 31.9 % Low 40-54 [facility] Comment on above: Performed By: #### L 100.0600 ####[facility] [address] [place], [address] Hemoglobin (Bld) [Mass/Vol] 9.7 g/dL Low 13.0-16.5 [facility] Comment on above: Performed By: #### L 100.0600 ####[facility] [address] [place], [address] Hematocrit Auto (Bld) [Volum e fraction]Ordered By: Valdez Olivo on 05-04-2025 Hematocrit (Bld) [Volume fraction] 31.9 % Low 40-54 [facility] Hemoglobin measurementOrdere d By: Valdez Olivo on 05-04-2025 Hemoglobin (Bld) [Mass/Vol] 9.7 g/dL Low 13.0-16.5 [facility] MR/OP.PROVATon 05-04-2025 MR/OP.PROVAT Normal [facility] MR/POSTOP.ANEon 05-04-2025 MR/POSTOP.ANE Normal [facility] MR/QKUQIEIX7aj 05-04-2025 MR/POSTOPAN2 Normal [facility] Bedside Glucoseon 05-03-2025 FINGERSTICK GLU 172 mg/dL High 74-106 [facility] Comment on above: Result Comment: KODY GEMENT OF PATIENT CARE PER NURSING PROTOCOL Performed By: #### L 501.080 ####[facility] [address] [place], [address] FINGERSTICK GLU 75 mg/dL Normal 74-106 [facility] Comment on above: Result Comment: KODY GEMENT OF PATIENT CARE PER NURSING PROTOCOL Performed By: #### L 501.080 ####[facility] [address] [place], [address] Basic Metabolic Profile (BMP )on 05-02-2025 BUN Normal 4-19 [facility] Comment on above: Result Comment: Canc elled via OM: Order cancelled - Patient discharged Performed By: #### L 100.0100, L500.2500 ####[facility] [address] [place], [address] BUN/CRE Normal 10-20 [facility] Comment on above: Result Comment: Canc elled via OM: Order cancelled - Patient discharged Performed By: #### L 100.0100, L500.2500 ####[facility] [address] [place], [address] Calcium Normal 7.6-11.0 [facility] Comment on above: Result Comment: Canc elled via OM: Order cancelled - Patient discharged Performed By: #### L 100.0100, L500.2500 ####[facility] [address] [place], [address] CL Normal 98-108 [facility] Comment on above: Result Comment: Canc elled via OM: Order cancelled - Patient discharged Performed By: #### L 100.0100, L500.2500 ####[facility] [address] [place], [address] CO2 Normal 21.0-32.0 [facility] Comment on above: Result Comment: Canc elled via OM: Order cancelled - Patient discharged Performed By: #### L 100.0100, L500.2500 ####[facility] [address] [place], [address] CREAT,SERUM Normal 0.70-1.20 [facility] Comment on above: Result Comment: Canc elled via OM: Order cancelled - Patient discharged Performed By: #### L 100.0100, L500.2500 ####[facility] [address] [place], [address] eGFR Normal >60 [facility] Comment on above: Result Comment: Canc elled via OM: Order cancelled - Patient discharged Performed By: #### L 100.0100, L500.2500 ####[facility] [address] [place], [address] GAP Normal 5-15 [facility] Comment on above: Result Comment: Canc elled via OM: Order cancelled - Patient discharged Performed By: #### L 100.0100, L500.2500 ####[facility] [address] [place], [address] GLU Normal 70-99 [facility] Comment on above: Result Comment: Canc elled via OM: Order cancelled - Patient discharged Performed By: #### L 100.0100, L500.2500 ####[facility] [address] [place], [address] Potassium Normal 3.3-5.1 [facility] Comment on above: Result Comment: Canc elled via OM: Order cancelled - Patient discharged Performed By: #### L 100.0100, L500.2500 ####[facility] [address] [place], [address] Basic Metabolic Profile (BMP) Normal 133-145 [facility] Comment on above: Result Comment: Canc elled via OM: Order cancelled - Patient discharged Performed By: #### L 100.0100, L500.2500 ####[facility] [address] [place], [address] Bedside Glucoseon 05-02-2025 FINGERSTICK GLU 159 mg/dL High 74-106 [facility] Comment on above: Result Comment: KODY GEMENT OF PATIENT CARE PER NURSING PROTOCOL Performed By: #### L 501.080 ####[facility] [address] [place], [address] FINGERSTICK GLU 87 mg/dL Normal 74-106 [facility] Comment on above: Result Comment: KODY GEMENT OF PATIENT CARE PER NURSING PROTOCOL Performed By: #### L 501.080 ####[facility] [address] [place], [address] CBC W/Diff, Automatedon - Absolute Neut Normal 2.0-7.7 [facility] Comment on above: Result Comment: Canc elled via OM: Order cancelled - Patient discharged Performed By: #### L 100.0100, L500.2500 ####[facility] [address] [place], [address] HCT Normal 40-54 [facility] Comment on above: Result Comment: Canc elled via OM: Order cancelled - Patient discharged Performed By: #### L 100.0100, L500.2500 ####[facility] [address] [place], [address] HGB Normal 13.0-16.5 [facility] Comment on above: Result Comment: Canc elled via OM: Order cancelled - Patient discharged Performed By: #### L 100.0100, L500.2500 ####[facility] [address] [place], [address] MCH Normal 27.0-32.0 [facility] Comment on above: Result Comment: Canc elled via OM: Order cancelled - Patient discharged Performed By: #### L 100.0100, L500.2500 ####[facility] [address] [place], [address] MCHC Normal 32-36 [facility] Comment on above: Result Comment: Canc elled via OM: Order cancelled - Patient discharged Performed By: #### L 100.0100, L500.2500 ####[facility] [address] [place], [address] MCV Normal 80-94 [facility] Comment on above: Result Comment: Canc elled via OM: Order cancelled - Patient discharged Performed By: #### L 100.0100, L500.2500 ####[facility] [address] [place], [address] NEUT% Normal 47-70 [facility] Comment on above: Result Comment: Canc elled via OM: Order cancelled - Patient discharged Performed By: #### L 100.0100, L500.2500 ####[facility] [address] [place], [address] PLT Normal 150-450 [facility] Comment on above: Result Comment: Canc elled via OM: Order cancelled - Patient discharged Performed By: #### L 100.0100, L500.2500 ####[facility] [address] [place], [address] RBC Normal 4.6-6.2 [facility] Comment on above: Result Comment: Canc elled via OM: Order cancelled - Patient discharged Performed By: #### L 100.0100, L500.2500 ####[facility] [address] [place], [address] RDW CV Normal 11.6-14.6 [facility] Comment on above: Result Comment: Canc elled via OM: Order cancelled - Patient discharged Performed By: #### L 100.0100, L500.2500 ####[facility] [address] [place], [address] RDW SD Normal 35.1-43.9 [facility] Comment on above: Result Comment: Canc elled via OM: Order cancelled - Patient discharged Performed By: #### L 100.0100, L500.2500 ####[facility] [address] [place], [address] WBC Normal 4.4-11.0 [facility] Comment on above: Result Comment: Canc elled via OM: Order cancelled - Patient discharged Performed By: #### L 100.0100, L500.2500 ####[facility] [address] [place], [address] HH, Hemoglobin AND Hematocri ton 05-02-2025 Hematocrit (Bld) [Volume fraction] 33.0 % Low 40-54 [facility] Comment on above: Performed By: #### L 100.0600 ####[facility] [address] [place], [address] Hemoglobin (Bld) [Mass/Vol] 10.0 g/dL Low 13.0-16.5 [facility] Comment on above: Performed By: #### L 100.0600 ####[facility] [address] [place], [address] Absolute lymphocyte countOrd ered By: Valdez Geovani on 05-01-2025 Lymphocytes Auto (Unsp spec) [#/Vol] 0.62 10*3/uL Low 0.83-4.51 [facility] Anion gap in Serum or Plasma Ordered By: Valdez Olivo on 05-01-2025 Anion gap [Moles/Vol] 7 mmol/L 5-15 [facility] Automated lymphocyte count a s percentage of total leukocytesOrdered By: Valdez Olivo on 05-01-2025 Lymphocytes/100 WBC Auto (Unsp spec) 16.1 % Low 19-41 [facility] BRCon 05-01-2025 RC Normal [facility] Comment on above: Result Comment: [id number] OP RC TRANSFUSED 05/01/25 [id number] OP RC TRANSFUSED 05/01/25 1137 Performed By: #### B , [facility] ####[facility] [address] [place], [address] BUN/creatinine ratioOrdered By: Valdez Olivo on 05-01-2025 Urea nitrogen/Creatinine [Mass ratio] 20.2 mg/mg High -20 [facility] Basic Metabolic Profile (BMP )on 05-01-2025 BUN/CRE 20.2 RATIO High [facility]20 [facility] Comment on above: Performed By: #### L 500.2500, L100.0100 ####[facility] [address] [place], [address] Calcium [Mass/Vol] 8.8 mg/dL Normal 7.6-11.[address] [facility] Comment on above: Performed By: #### L 500.2500, L100.0100 ####[facility] [address] [place], [address] Chloride [Moles/Vol] 102 mmol/L Normal 98-108 [facility] Comment on above: Performed By: #### L 500.2500, L100.0100 ####[facility] [address] [place], [address] CO2 [Moles/Vol] 33.0 mmol/L High 21.0-32.0 [facility] Comment on above: Performed By: #### L 500.2500, L100.0100 ####[facility] [address] [place], [address] Creatinine [Mass/Vol] 1.28 mg/dL High 0.70-1.20 [facility] Comment on above: Performed By: #### L 500.2500, L100.0100 ####[facility] [address] [place], [address] ECRCL 41.54 ml/min Low 50-250 [facility] Comment on above: Performed By: #### L 500.2500, L100.0100 ####[facility] [address] [place], [address] GAP 7 Normal 5-15 [facility] Comment on above: Performed By: #### L 500.2500, L100.0100 ####[facility] [address] [place], [address] GFR/1.73 sq M.predicted among non-blacks MDRD (S/P/Bld) [Vol rate/Area] 57 mL/min/{1.73_m2} Low >60 [facility] Comment on above: Result Comment: mL/m in/1.73m2 CKD-EPI Creatinine Equation (2020) Performed By: #### L 500.2500, L100.0100 ####[facility] [address] [place], [address] Glucose [Mass/Vol] 100 mg/dL High 70-[address] [facility] Comment on above: Performed By: #### L 500.2500, L100.0100 ####[facility] [address] [place], [address] Potassium [Moles/Vol] 3.8 mmol/L Normal 3.3-5.1 [facility] Comment on above: Performed By: #### L 500.2500, L100.0100 ####[facility] [address] [place], [address] Sodium [Moles/Vol] 142 mmol/L Normal 133-[address] [facility] Comment on above: Performed By: #### L 500.2500, L100.0100 ####[facility] [address] [place], [address] Urea nitrogen [Mass/Vol] 26 mg/dL High 4-19 [facility] Comment on above: Performed By: #### L 500.2500, L100.0100 ####[facility] [address] [place], [address] Basophil percentageOrdered B y: Valdez Olivo on 05-01-2025 Basophils/100 WBC (Bld) 0.3 % 0-[address] [facility] Bedside Glucoseon 05-01-2025 FINGERSTICK GLU 133 mg/dL High 74-106 [facility] Comment on above: Result Comment: KODY GEMENT OF PATIENT CARE PER NURSING PROTOCOL Performed By: #### L 501.080 ####[facility] [address] [place], [address] FINGERSTICK GLU 96 mg/dL Normal 74-106 [facility] Comment on above: Result Comment: KODY GEMENT OF PATIENT CARE PER NURSING PROTOCOL Performed By: #### L 501.080 ####[facility] [address] [place], [address] CBC W/Diff, Automatedon 04-20 Absolute Lymph 0.62 X10 3/uL Low 0.83-4.51 [facility] Comment on above: Performed By: #### L 500.2500, L100.0100 ####[facility] [address] [place], [address] Absolute Neut 2.2 X10 3/uL Normal 2.0-7.7 [facility] Comment on above: Performed By: #### L 500.2500, L100.0100 ####[facility] [address] [place], [address] Basophils/100 WBC (Bld) 0.3 % Normal 0-[address] [facility] Comment on above: Performed By: #### L 500.2500, L100.0100 ####[facility] [address] [place], [address] Eosinophils/100 WBC (Bld) 9.4 % High 0-5 [facility] Comment on above: Performed By: #### L 500.2500, L100.0100 ####[facility] [address] [place], [address] Erythrocyte distribution width (RBC) [Ratio] 17.6 % High 11.6-14.6 [facility] Comment on above: Performed By: #### L 500.2500, L100.0100 ####[facility] [address] [place], [address] Hematocrit (Bld) [Volume fraction] 22.9 % Low 40-54 [facility] Comment on above: Performed By: #### L 500.2500, L100.0100 ####[facility] [address] [place], [address] Hemoglobin (Bld) [Mass/Vol] 7.0 g/dL Low 13.0-16.5 [facility] Comment on above: Performed By: #### L 500.2500, L100.0100 ####[facility] [address] [place], [address] IG% 0.500 Normal 0.0-0.9 [facility] Comment on above: Result Comment: IG% - Immature Granulocytes (promyelocytes, myelocytes andmetamyelocytes) > 1% indicates that a LEFT SHIFT is Present. Performed By: #### L 500.2500, L100.0100 ####[facility] [address] [place], [address] Lymphocytes/100 WBC (Bld) 16.1 % Low 19-41 [facility] Comment on above: Performed By: #### L 500.2500, L100.0100 ####[facility] [address] [place], [address] MCH (RBC) [Entitic mass] 27.5 pg Normal 27.0-32.0 [facility] Comment on above: Performed By: #### L 500.2500, L100.0100 ####[facility] [address] [place], [address] MCHC (RBC) [Mass/Vol] 30.6 g/dL Low 32-36 [facility] Comment on above: Performed By: #### L 500.2500, L100.0100 ####[facility] [address] [place], [address] MCV (RBC) [Entitic vol] 89.8 fL Normal 80-[address] [facility] Comment on above: Performed By: #### L 500.2500, L100.0100 ####[facility] [address] [place], [address] Monocytes/100 WBC (Bld) 16.4 % High 0-[address] [facility] Comment on above: Performed By: #### L 500.2500, L100.0100 ####[facility] [address] [place], [address] Neutrophils/100 WBC (Bld) 57.3 % Normal 47-70 [facility] Comment on above: Performed By: #### L 500.2500, L100.0100 ####[facility] [address] [place], [address] Nucleated RBC (Bld) [#/Vol] 0 10*3/uL Normal 0-5 [facility] Comment on above: Performed By: #### L 500.2500, L100.0100 ####[facility] [address] [place], [address] Platelet mean volume (Bld) [Entitic vol] 10.5 fL Normal 6.2-12.0 [facility] Comment on above: Performed By: #### L 500.2500, L100.0100 ####[facility] [address] [place], [address] Platelets (Bld) [#/Vol] 149 10*3/uL Low 150-450 [facility] Comment on above: Performed By: #### L 500.2500, L100.0100 ####[facility] [address] [place], [address] RBC (Bld) [#/Vol] 2.55 10*6/uL Low 4.6-6.2 [facility] Comment on above: Performed By: #### L 500.2500, L100.0100 ####[facility] [address] [place], [address] RDW SD 57.8 fl High 35.1-43.9 [facility] Comment on above: Performed By: #### L 500.2500, L100.0100 ####[facility] [address] [place], [address] WBC (Bld) [#/Vol] 3.9 10*3/uL Low 4.4-11.[address] [facility] Comment on above: Performed By: #### L 500.2500, L100.0100 ####[facility] [address] [place], [address] Carbon dioxide, total [Moles /volume] in Central venous bloodOrdered By: Valdez Olivo on 05-01-2025 CO2 [Moles/Vol] 33.0 mmol/L High 21.0-32.0 [facility] Chloride assayOrdered By: Aiden Olivo on 05-01-2025 Chloride [Moles/Vol] 102 mmol/L 98-108 [facility] Eosinophil percentageOrdered By: Valdez Olivo 05-01-2025 Eosinophils/100 WBC (Bld) 9.4 % High 0-5 [facility] Erythrocyte distribution wid th ratioOrdered By: Valdez Olivo on 05-01-2025 Erythrocyte distribution width (RBC) [Ratio] 17.6 % High 11.6-14.6 [facility] Erythrocyte distribution wid th standard deviationOrdered By: Valdez Olivo on 05-01-2025 Erythrocyte distribution width (RBC) [Ratio] 57.8 fl High 35.1-43.9 [facility] Glomerular filtration rate ( GFR) estimation/1.73 sq m using serum, plasma, or whole bOrdered By: Valdez Olivo on 05-01-2025 GFR/1.73 sq M.predicted among non-blacks MDRD (S/P/Bld) [Vol rate/Area] 57 mL/min/{1.73_m2} Low >60 [facility] Immature granulocytes/100 WB C Auto (Bld)Ordered By: Valdez Olivo 05-01-2025 Immature granulocytes/100 WBC (Bld) 0.500 % 0.0-0.9 [facility] MCV (mean corpuscular volume ) determinationOrdered By: Valdez Olivo 05-01-2025 MCV (RBC) [Entitic vol] 89.8 fL 80-[address] [facility] Mean corpuscular hemoglobin (MCH) determinationOrdered By: Valdez Olivo 05-01-2025 MCH (RBC) [Entitic mass] 27.5 pg 27.0-32.0 [facility] Monocyte percentageOrdered B y: Valdez Olivo on 05-01-2025 Monocytes/100 WBC (Bld) 16.4 % High 0-[address] [facility] Neutrophil percentageOrdered By: Valdez Olivo 05-01-2025 Neutrophils/100 WBC (Bld) 57.3 % 47-70 [facility] Platelet countOrdered By: Aiden Olivo on 05-01-2025 Platelets (Bld) [#/Vol] 149 10*3/uL Low 150-450 [facility] Potassium measurement (mass/ volume)Ordered By: Valdez Olivo on 05-01-2025 Potassium (Unsp spec) [Mass/Vol] 3.8 mmol/L 3.3-5.1 [facility] RBC Auto (Bld) [#/Vol]Ordere d By: Valdez Olivo on 05-01-2025 RBC (Bld) [#/Vol] 2.55 10*6/uL Low 4.6-6.2 [facility] Serum creatinine measurement (mass/volume)Ordered By: Valdez Olivo on 05-01-2025 Creatinine [Mass/Vol] 1.28 mg/dL High 0.70-1.20 [facility] Serum glucose measurement (m ass/volume)Ordered By: Valdez Olivo on 05-01-2025 Glucose [Mass/Vol] 100 mg/dL High 70-[address] [facility] Serum or plasma calcium [place] urement (mass/volume)Ordered By: Valdez Olivo on 05-01-2025 Calcium [Mass/Vol] 8.8 mg/dL 7.6-11.[address] [facility] Serum or plasma urea nitroge n measurement (mass/volume)Ordered By: Valdez Olivo on 05-01-2025 Urea nitrogen [Mass/Vol] 26 mg/dL High 4-19 [facility] Sodium levelOrdered By: Valdez Olivo on 05-01-2025 Sodium [Moles/Vol] 142 mmol/L 133-[address] [facility] Type AND Screenon 05-01-2025 ABO and Rh group Nom (Bld) Blood group O Rh(D) positive Normal [facility] Comment on above: Order Comment: CMV N [...] ReadyNY Performed By: #### B TS, BR ####[facility] [address] [place], [address] White blood cell (WBC) count Ordered By: Valdez Olivo on 05-01-2025 WBC (Bld) [#/Vol] 3.9 10*3/uL Low 4.4-11.[address] [facility] Basic Metabolic Profile (BMP )on 04-30-2025 BUN/CRE 20.0 RATIO Normal 10-20 [facility] Comment on above: Performed By: #### L 503.7505, L100.0100, L500.2500 ####[facility] [address] [place], [address] Calcium [Mass/Vol] 9.0 mg/dL Normal 7.6-11.[address] [facility] Comment on above: Performed By: #### L 503.7505, L100.0100, L500.2500 ####[facility] [address] [place], [address] Chloride [Moles/Vol] 101 mmol/L Normal 98-108 [facility] Comment on above: Performed By: #### L 503.7505, L100.0100, L500.2500 ####[facility] [address] [place], [address] CO2 [Moles/Vol] 31.1 mmol/L Normal 21.0-32.0 [facility] Comment on above: Performed By: #### L 503.7505, L100.0100, L500.2500 ####[facility] [address] [place], [address] Creatinine [Mass/Vol] 1.35 mg/dL High 0.70-1.20 [facility] Comment on above: Performed By: #### L 503.7505, L100.0100, L500.2500 ####[facility] [address] [place], [address] ECRCL 39.38 ml/min Low 50-250 [facility] Comment on above: Performed By: #### L 503.7505, L100.0100, L500.2500 ####[facility] [address] [place], [address] GAP 8 Normal 5-15 [facility] Comment on above: Performed By: #### L 503.7505, L100.0100, L500.2500 ####[facility] [address] [place], [address] GFR/1.73 sq M.predicted among non-blacks MDRD (S/P/Bld) [Vol rate/Area] 53 mL/min/{1.73_m2} Low >60 [facility] Comment on above: Result Comment: mL/m in/1.73m2 CKD-EPI Creatinine Equation (2020) Performed By: #### L 503.7505, L100.0100, L500.2500 ####[facility] [address] [place], [address] Glucose [Mass/Vol] 221 mg/dL High 70-[address] [facility] Comment on above: Performed By: #### L 503.7505, L100.0100, L500.2500 ####[facility] [address] [place], [address] Potassium [Moles/Vol] 4.8 mmol/L Normal 3.3-5.1 [facility] Comment on above: Result Comment: Hemo lysis present, Results??could be affected.?? Performed By: #### L 503.7505, L100.0100, L500.2500 ####[facility] [address] [place], [address] Sodium [Moles/Vol] 140 mmol/L Normal 133-[address] [facility] Comment on above: Performed By: #### L 503.7505, L100.0100, L500.2500 ####[facility] [address] [place], [address] Urea nitrogen [Mass/Vol] 27 mg/dL High 4-19 [facility] Comment on above: Performed By: #### L 503.7505, L100.0100, L500.2500 ####[facility] [address] [place], [address] Bedside Glucoseon 04-30-2025 FINGERSTICK GLU 164 mg/dL High 74-106 [facility] Comment on above: Result Comment: KODY GEMENT OF PATIENT CARE PER NURSING PROTOCOL Performed By: #### L 501.080 ####[facility] [address] [place], [address] FINGERSTICK GLU 136 mg/dL High 74-106 [facility] Comment on above: Result Comment: KODY GEMENT OF PATIENT CARE PER NURSING PROTOCOL Performed By: #### L 501.080 ####[facility] [address] [place], [address] FINGERSTICK GLU 213 mg/dL High 74-106 [facility] Comment on above: Result Comment: KODY GEMENT OF PATIENT CARE PER NURSING PROTOCOL Performed By: #### L 501.080 ####[facility] [address] [place], [address] FINGERSTICK GLU 101 mg/dL Normal 74-106 [facility] Comment on above: Result Comment: KODY GEMENT OF PATIENT CARE PER NURSING PROTOCOL Performed By: #### L 501.080 ####[facility] [address] [place], [address] CBC W/Diff, Automatedon 04-20 Absolute Lymph 0.49 X10 3/uL Low 0.83-4.51 [facility] Comment on above: Performed By: #### L 503.7505, L100.0100, L500.2500 ####[facility] [address] [place], [address] Absolute Neut 3.2 X10 3/uL Normal 2.0-7.7 [facility] Comment on above: Performed By: #### L 503.7505, L100.0100, L500.2500 ####[facility] [address] [place], [address] Basophils/100 WBC (Bld) 0.5 % Normal 0-[address] [facility] Comment on above: Performed By: #### L 503.7505, L100.0100, L500.2500 ####[facility] [address] [place], [address] Eosinophils/100 WBC (Bld) 2.5 % Normal 0-5 [facility] Comment on above: Performed By: #### L 503.7505, L100.0100, L500.2500 ####[facility] [address] [place], [address] Erythrocyte distribution width (RBC) [Ratio] 17.6 % High 11.6-14.6 [facility] Comment on above: Performed By: #### L 503.7505, L100.0100, L500.2500 ####[facility] [address] [place], [address] Hematocrit (Bld) [Volume fraction] 26.0 % Low 40-54 [facility] Comment on above: Performed By: #### L 503.7505, L100.0100, L500.2500 ####[facility] [address] [place], [address] Hemoglobin (Bld) [Mass/Vol] 7.7 g/dL Low 13.0-16.5 [facility] Comment on above: Performed By: #### L 503.7505, L100.0100, L500.2500 ####[facility] [address] [place], [address] IG% 0.900 Normal 0.0-0.9 [facility] Comment on above: Result Comment: IG% - Immature Granulocytes (promyelocytes, myelocytes andmetamyelocytes) > 1% indicates that a LEFT SHIFT is Present. Performed By: #### L 503.7505, L100.0100, L500.2500 ####[facility] [address] [place], [address] Lymphocytes/100 WBC (Bld) 11.1 % Low 19-41 [facility] Comment on above: Performed By: #### L 503.7505, L100.0100, L500.2500 ####[facility] [address] [place], [address] MCH (RBC) [Entitic mass] 26.9 pg Low 27.0-32.0 [facility] Comment on above: Performed By: #### L 503.7505, L100.0100, L500.2500 ####[facility] [address] [place], [address] MCHC (RBC) [Mass/Vol] 29.6 g/dL Low 32-36 [facility] Comment on above: Performed By: #### L 503.7505, L100.0100, L500.2500 ####[facility] [address] [place], [address] MCV (RBC) [Entitic vol] 90.9 fL Normal 80-[address] [facility] Comment on above: Performed By: #### L 503.7505, L100.0100, L500.2500 ####[facility] [address] [place], [address] Monocytes/100 WBC (Bld) 13.6 % High 0-[address] [facility] Comment on above: Performed By: #### L 503.7505, L100.0100, L500.2500 ####[facility] [address] [place], [address] Neutrophils/100 WBC (Bld) 71.4 % High 47-70 [facility] Comment on above: Performed By: #### L 503.7505, L100.0100, L500.2500 ####[facility] [address] [place], [address] Nucleated RBC (Bld) [#/Vol] 0 10*3/uL Normal 0-5 [facility] Comment on above: Performed By: #### L 503.7505, L100.0100, L500.2500 ####[facility] [address] [place], [address] Platelet mean volume (Bld) [Entitic vol] 10.6 fL Normal 6.2-12.0 [facility] Comment on above: Performed By: #### L 503.7505, L100.0100, L500.2500 ####[facility] [address] [place], [address] Platelets (Bld) [#/Vol] 163 10*3/uL Normal 150-450 [facility] Comment on above: Performed By: #### L 503.7505, L100.0100, L500.2500 ####[facility] [address] [place], [address] RBC (Bld) [#/Vol] 2.86 10*6/uL Low 4.6-6.2 [facility] Comment on above: Performed By: #### L 503.7505, L100.0100, L500.2500 ####[facility] [address] [place], [address] RDW SD 58.2 fl High 35.1-43.9 [facility] Comment on above: Performed By: #### L 503.7505, L100.0100, L500.2500 ####[facility] [address] [place], [address] WBC (Bld) [#/Vol] 4.4 10*3/uL Normal 4.4-11.[address] [facility] Comment on above: Performed By: #### L 503.7505, L100.0100, L500.2500 ####[facility] [address] [place], [address] Chest PA and Lateralon 04-30 Chest PA and Lateral Normal [facility] Natriuretic peptide.B prohor girish N-Terminal [Mass/volume] in Serum or PlasmaOrdered By: Valdez Olivo on 04-30-2025 Natriuretic peptide.B prohormone N-Terminal [Mass/Vol] 5226 pg/mL High <1800 [facility] Pro- Brain NATRIURETIC PEPTI Adrienne 04-30-2025 Natriuretic peptide B (Bld) [Mass/Vol] 5226 pg/mL High <=1800 [facility] Comment on above: Result Comment: Hear t Failure Unlikely: < 300 pg/mLHeart Failure Likely< 50 Years: > 450 pg/mL50-75 Years: > 900 pg/mL>75 Years: > 1800 pg/mL Performed By: #### L 503.7505, L100.0100, L500.2500 ####[facility] [address] [place], [address] Stool Occult Blood iFOBon STOB Positive Normal [facility] Comment on above: Performed By: #### M 100.7900 ####[facility] [address] [place], [address] Stool gastrointestinal hemog lobin detection by immunologic methodOrdered By: Valdez Olivo on 04-30-2025 Lower GI hemoglobin IA Ql (Stl) Positive Abnormal [facility] Bedside Glucoseon 04-29-2025 FINGERSTICK GLU 127 mg/dL High 74-106 [facility] Comment on above: Result Comment: KODY STRONG OF PATIENT CARE PER NURSING PROTOCOL Performed By: #### L 501.080 ####[facility] [address] [place], [address] FINGERSTICK GLU 117 mg/dL High 74-106 [facility] Comment on above: Result Comment: KODY GEMENT OF PATIENT CARE PER NURSING PROTOCOL Performed By: #### L 501.080 ####[facility] [address] [place], [address] FINGERSTICK GLU 149 mg/dL High 74-106 [facility] Comment on above: Result Comment: KODY GEMENT OF PATIENT CARE PER NURSING PROTOCOL Performed By: #### L 501.080 ####[facility] [address] [place], [address] FINGERSTICK GLU 92 mg/dL Normal -106 [facility] Comment on above: Result Comment: KODY GEMENT OF PATIENT CARE PER NURSING PROTOCOL Performed By: #### L 501.080 ####[facility] [address] [place], [address] Bedside Glucoseon 04-28-2025 FINGERSTICK GLU 190 mg/dL High -106 [facility] Comment on above: Result Comment: KODY GEMENT OF PATIENT CARE PER NURSING PROTOCOL Performed By: #### L 501.080 ####[facility] [address] [place], [address] FINGERSTICK GLU 129 mg/dL High 74-106 [facility] Comment on above: Result Comment: KODY GEMENT OF PATIENT CARE PER NURSING PROTOCOL Performed By: #### L 501.080 ####[facility] [address] [place], [address] FINGERSTICK GLU 110 mg/dL High -106 [facility] Comment on above: Result Comment: KODY GEMENT OF PATIENT CARE PER NURSING PROTOCOL Performed By: #### L 501.080 ####[facility] [address] [place], [address] FINGERSTICK GLU 101 mg/dL Normal -106 [facility] Comment on above: Result Comment: KODY GEMENT OF PATIENT CARE PER NURSING PROTOCOL Performed By: #### L 501.080 ####[facility] [address] [facility] [address] Gl[facility] at [facility] deOrdered By: Valdez Olivo on 04-28-2025 Glucose [Mass/Vol] 190 mg/dL High 74-[address] [facility] Pacemaker Checkon 04-28-2025 Pacemaker Check Normal [facility] Bedside Glucoseon 04-27-2025 FINGERSTICK GLU 176 mg/dL High 74-106 [facility] Comment on above: Result Comment: KODY GEMENT OF PATIENT CARE PER NURSING PROTOCOL Performed By: #### L 501.080 ####[facility] [address] [facility] [address] FINGERSTICK GLU 127 mg/dL High -[address] [place] [address] Comment on above: Result Comment: KODY GEMENT OF PATIENT CARE PER NURSING PROTOCOL Performed By: #### L 501.080 ####[facility] [address] [place], [address] FINGERSTICK GLU 164 mg/dL High -106 [facility] Comment on above: Result Comment: KODY GEMENT OF PATIENT CARE PER NURSING PROTOCOL Performed By: #### L 501.080 ####[facility] [address] [facility] [address] FINGERSTICK GLU 103 mg/dL Normal -106 [facility] Comment on above: Result Comment: KODY GEMENT OF PATIENT CARE PER NURSING PROTOCOL Performed By: #### L 501.080 ####[facility] [address] [place], [address] Glucose measurement at bedsi deOrdered By: Valdez Olivo on 04-27-2025 Glucose [Mass/Vol] 176 mg/dL High 74-[address] [facility] Bedside Glucoseon 04-26-2025 FINGERSTICK GLU 148 mg/dL High 74-106 [facility] Comment on above: Result Comment: KODY GEMENT OF PATIENT CARE PER NURSING PROTOCOL Performed By: #### L 501.080 ####[facility] [address] [place], [address] FINGERSTICK GLU 128 mg/dL High 74-106 [facility] Comment on above: Result Comment: KODY GEMENT OF PATIENT CARE PER NURSING PROTOCOL Performed By: #### L 501.080 ####[facility] [address] [place], [address] FINGERSTICK GLU 135 mg/dL High 74-106 [facility] Comment on above: Result Comment: KODY GEMENT OF PATIENT CARE PER NURSING PROTOCOL Performed By: #### L 501.080 ####[facility] [address] [place], [address] FINGERSTICK GLU 124 mg/dL High 74-106 [facility] Comment on above: Result Comment: KODY GEMENT OF PATIENT CARE PER NURSING PROTOCOL Performed By: #### L 501.080 ####[facility] [address] [place], [address] Basic Metabolic Profile (BMP )on 04-25-2025 BUN Normal 4-19 [facility] Comment on above: Result Comment: Canc elled via OM: Order cancelled - Patient discharged Performed By: #### L 100.0100, L500.2500 ####[facility] [address] [place], [address] BUN/CRE Normal 10-20 [facility] Comment on above: Result Comment: Canc elled via OM: Order cancelled - Patient discharged Performed By: #### L 100.0100, L500.2500 ####[facility] [id number] [place], [address] Calcium Normal 7.6-11.0 [facility] Comment on above: Result Comment: Canc elled via OM: Order cancelled - Patient discharged Performed By: #### L 100.0100, L500.2500 ####[facility] [id number] [place], [address] CL Normal 98-108 [facility] Comment on above: Result Comment: Canc elled via OM: Order cancelled - Patient discharged Performed By: #### L 100.0100, L500.2500 ####[facility] [id number] [place], [address] CO2 Normal 21.0-32.0 [facility] Comment on above: Result Comment: Canc elled via OM: Order cancelled - Patient discharged Performed By: #### L 100.0100, L500.2500 ####[facility] [id number] [place], [address] CREAT,SERUM Normal 0.70-1.20 [facility] Comment on above: Result Comment: Canc elled via OM: Order cancelled - Patient discharged Performed By: #### L 100.0100, L500.2500 ####[facility] [id number] [place], [address] eGFR Normal >60 [facility] Comment on above: Result Comment: Canc elled via OM: Order cancelled - Patient discharged Performed By: #### L 100.0100, L500.2500 ####[facility] [address] [place], [address] GAP Normal 5-15 [facility] Comment on above: Result Comment: Canc elled via OM: Order cancelled - Patient discharged Performed By: #### L 100.0100, L500.2500 ####[facility] [address] [place], [address] GLU Normal 70-99 [facility] Comment on above: Result Comment: Canc elled via OM: Order cancelled - Patient discharged Performed By: #### L 100.0100, L500.2500 ####[facility] [address] [place], [address] Potassium Normal 3.3-5.1 [facility] Comment on above: Result Comment: Canc elled via OM: Order cancelled - Patient discharged Performed By: #### L 100.0100, L500.2500 ####[facility] [address] [place], [address] Basic Metabolic Profile (BMP) Normal 133-145 [facility] Comment on above: Result Comment: Canc elled via OM: Order cancelled - Patient discharged Performed By: #### L 100.0100, L500.2500 ####[facility] [address] [place], [address] Bedside Glucoseon 04-25-2025 FINGERSTICK GLU 170 mg/dL High 74-106 [facility] Comment on above: Result Comment: KOYD GEMENT OF PATIENT CARE PER NURSING PROTOCOL Performed By: #### L 501.080 ####[facility] [address] [place], [address] FINGERSTICK GLU 114 mg/dL High 74-106 [facility] Comment on above: Result Comment: KODY GEMENT OF PATIENT CARE PER NURSING PROTOCOL Performed By: #### L 501.080 ####[facility] [address] [place], [address] FINGERSTICK GLU 120 mg/dL High 74-106 [facility] Comment on above: Result Comment: KODY GEMENT OF PATIENT CARE PER NURSING PROTOCOL Performed By: #### L 501.080 ####[facility] [address] [place], [address] FINGERSTICK GLU 96 mg/dL Normal 74-106 [facility] Comment on above: Result Comment: KODY GEMENT OF PATIENT CARE PER NURSING PROTOCOL Performed By: #### L 501.080 ####[facility] [address], [address] FINGERSTICK GLU 64 mg/dL Low 74-106 [facility] Comment on above: Result Comment: KODY GEMENT OF PATIENT CARE PER NURSING PROTOCOL Performed By: #### L 501.080 ####[facility] [address] [place], [address] FINGERSTICK GLU 71 mg/dL Low 74-106 [facility] Comment on above: Result Comment: KODY GEMENT OF PATIENT CARE PER NURSING PROTOCOL Performed By: #### L 501.080 ####[facility] [address] [place], [address] CBC W/Diff, Automatedon 09-0 6-2024 Absolute Neut Normal 2.0-7.7 [facility] Comment on above: Result Comment: Canc elled via OM: Order cancelled - Patient discharged Performed By: #### L 100.0100, L500.2500 ####[facility] [address] [place], [address] HCT Normal 40-54 [facility] Comment on above: Result Comment: Canc elled via OM: Order cancelled - Patient discharged Performed By: #### L 100.0100, L500.2500 ####[facility] [address] [place], [address] HGB Normal 13.0-16.5 [facility] Comment on above: Result Comment: Canc elled via OM: Order cancelled - Patient discharged Performed By: #### L 100.0100, L500.2500 ####[facility] [address] [place], [address] MCH Normal 27.0-32.0 [facility] Comment on above: Result Comment: Canc elled via OM: Order cancelled - Patient discharged Performed By: #### L 100.0100, L500.2500 ####[facility] [address] [place], [address] MCHC Normal 32-36 [facility] Comment on above: Result Comment: Canc elled via OM: Order cancelled - Patient discharged Performed By: #### L 100.0100, L500.2500 ####[facility] [address] [place], [address] MCV Normal 80-94 [facility] Comment on above: Result Comment: Canc elled via OM: Order cancelled - Patient discharged Performed By: #### L 100.0100, L500.2500 ####[facility] [address] [place], [address] NEUT% Normal 47-70 [facility] Comment on above: Result Comment: Canc elled via OM: Order cancelled - Patient discharged Performed By: #### L 100.0100, L500.2500 ####[facility] [address] [place], [address] PLT Normal 150-450 [facility] Comment on above: Result Comment: Canc elled via OM: Order cancelled - Patient discharged Performed By: #### L 100.0100, L500.2500 ####[facility] [address] [place], [address] RBC Normal 4.6-6.2 [facility] Comment on above: Result Comment: Canc elled via OM: Order cancelled - Patient discharged Performed By: #### L 100.0100, L500.2500 ####[facility] [address] [place], [address] RDW CV Normal 11.6-14.6 [facility] Comment on above: Result Comment: Canc elled via OM: Order cancelled - Patient discharged Performed By: #### L 100.0100, L500.2500 ####[facility] [address] [place], [address] RDW SD Normal 35.1-43.9 [facility] Comment on above: Result Comment: Canc elled via OM: Order cancelled - Patient discharged Performed By: #### L 100.0100, L500.2500 ####[facility] [address] [place], [address] WBC Normal 4.4-11.0 [facility] Comment on above: Result Comment: Canc elled via OM: Order cancelled - Patient discharged Performed By: #### L 100.0100, L500.2500 ####[facility] [address] [place], [address] Absolute lymphocyte countOrd ered By: Valdez Olivo on 04-24-2025 Lymphocytes Auto (Unsp spec) [#/Vol] 0.49 10*3/uL Low 0.83-4.51 [facility] Anion gap in Serum or Plasma Ordered By: Valdez Olivo on 04-24-2025 Anion gap [Moles/Vol] 8 mmol/L 5-15 [facility] Automated lymphocyte count a s percentage of total leukocytesOrdered By: Valdez Olivo on 04-24-2025 Lymphocytes/100 WBC Auto (Unsp spec) 7.3 % Low 19-41 [facility] BUN/creatinine ratioOrdered By: Valdez Olivo on 04-24-2025 Urea nitrogen/Creatinine [Mass ratio] 16.4 mg/mg 10- [facility] Basic Metabolic Profile (BMP )on 04-24-2025 BUN/CRE 16.4 RATIO Normal - [facility] Comment on above: Performed By: #### L 100.0100, L500.2500 ####[facility] [address] [place], [address] Calcium [Mass/Vol] 8.6 mg/dL Normal 7.6-11.[address] [facility] Comment on above: Performed By: #### L 100.0100, L500.2500 ####[facility] [address] [place], [address] Chloride [Moles/Vol] 104 mmol/L Normal 98-108 [facility] Comment on above: Performed By: #### L 100.0100, L500.2500 ####[facility] [address] [place], [address] CO2 [Moles/Vol] 27.4 mmol/L Normal 21.0-32.0 [facility] Comment on above: Performed By: #### L 100.0100, L500.2500 ####[facility] [address] [place], [address] Creatinine [Mass/Vol] 1.28 mg/dL High 0.70-1.20 [facility] Comment on above: Performed By: #### L 100.0100, L500.2500 ####[facility] [address] [place], [address] ECRCL 41.54 ml/min Low 50-250 [facility] Comment on above: Performed By: #### L 100.0100, L500.2500 ####[facility] [address] [place], [address] GAP 8 Normal 5-15 [facility] Comment on above: Performed By: #### L 100.0100, L500.2500 ####[facility] [address] [place], [address] GFR/1.73 sq M.predicted among non-blacks MDRD (S/P/Bld) [Vol rate/Area] 57 mL/min/{1.73_m2} Low >60 [facility] Comment on above: Result Comment: mL/m in/1.73m2 CKD-EPI Creatinine Equation (2020) Performed By: #### L 100.0100, L500.2500 ####[facility] [address] [place], [address] Glucose [Mass/Vol] 153 mg/dL High 70-[address] [facility] Comment on above: Performed By: #### L 100.0100, L500.2500 ####[facility] [address] [place], [address] Potassium [Moles/Vol] 4.2 mmol/L Normal 3.3-5.1 [facility] Comment on above: Performed By: #### L 100.0100, L500.2500 ####[facility] [address] [place], [address] Sodium [Moles/Vol] 140 mmol/L Normal 133-[address] [facility] Comment on above: Performed By: #### L 100.0100, L500.2500 ####[facility] [address] [place], [address] Urea nitrogen [Mass/Vol] 21 mg/dL High 4-19 [facility] Comment on above: Performed By: #### L 100.0100, L500.2500 ####[facility] [address] [place], [address] Basophil percentageOrdered B y: Valdez Geovani on 04-24-2025 Basophils/100 WBC (Bld) 0.3 % 0-[address] [facility] Bedside Glucoseon 04-24-2025 FINGERSTICK GLU 131 mg/dL High 74-106 [facility] Comment on above: Result Comment: KODY GEMENT OF PATIENT CARE PER NURSING PROTOCOL Performed By: #### L 501.080 ####[facility] [address] [place], [address] FINGERSTICK GLU 132 mg/dL High 74-106 [facility] Comment on above: Result Comment: KODY GEMENT OF PATIENT CARE PER NURSING PROTOCOL Performed By: #### L 501.080 ####[facility] [address] [place], [address] FINGERSTICK GLU 119 mg/dL High 74-106 [facility] Comment on above: Result Comment: KODY GEMENT OF PATIENT CARE PER NURSING PROTOCOL Performed By: #### L 501.080 ####[facility] [address] [place], [address] FINGERSTICK GLU 120 mg/dL High 74-106 [facility] Comment on above: Result Comment: KODY GEMENT OF PATIENT CARE PER NURSING PROTOCOL Performed By: #### L 501.080 ####[facility] [address] [place], [address] CBC W/Diff, Automatedon 09-0 5-2025 Absolute Lymph 0.49 X10 3/uL Low 0.83-4.51 [facility] Comment on above: Performed By: #### L 100.0100, L500.2500 ####[facility] [address] [place], [address] Absolute Neut 5.4 X10 3/uL Normal 2.0-7.7 [facility] Comment on above: Performed By: #### L 100.0100, L500.2500 ####[facility] [address] [place], [address] Basophils/100 WBC (Bld) 0.3 % Normal 0-[address] [facility] Comment on above: Performed By: #### L 100.0100, L500.2500 ####[facility] [address] [place], [address] Eosinophils/100 WBC (Bld) 2.5 % Normal 0-5 [facility] Comment on above: Performed By: #### L 100.0100, L500.2500 ####[facility] [address] [place], [address] Erythrocyte distribution width (RBC) [Ratio] 17.6 % High 11.6-14.6 [facility] Comment on above: Performed By: #### L 100.0100, L500.2500 ####[facility] [address] [place], [address] Hematocrit (Bld) [Volume fraction] 26.6 % Low 40-54 [facility] Comment on above: Performed By: #### L 100.0100, L500.2500 ####[facility] [address] [place], [address] Hemoglobin (Bld) [Mass/Vol] 8.0 g/dL Low 13.0-16.5 [facility] Comment on above: Performed By: #### L 100.0100, L500.2500 ####[facility] [address] [place], [address] IG% 0.900 Normal 0.0-0.9 [facility] Comment on above: Result Comment: IG% - Immature Granulocytes (promyelocytes, myelocytes andmetamyelocytes) > 1% indicates that a LEFT SHIFT is Present. Performed By: #### L 100.0100, L500.2500 ####[facility] [address] [place], [address] Lymphocytes/100 WBC (Bld) 7.3 % Low 19-41 [facility] Comment on above: Performed By: #### L 100.0100, L500.2500 ####[facility] [address] [place], [address] MCH (RBC) [Entitic mass] 27.1 pg Normal 27.0-32.0 [facility] Comment on above: Performed By: #### L 100.0100, L500.2500 ####[facility] [address] [place], [address] MCHC (RBC) [Mass/Vol] 30.1 g/dL Low 32-36 [facility] Comment on above: Performed By: #### L 100.0100, L500.2500 ####[facility] [address] [place], [address] MCV (RBC) [Entitic vol] 90.2 fL Normal 80-[address] [facility] Comment on above: Performed By: #### L 100.0100, L500.2500 ####[facility] [address] [place], [address] Monocytes/100 WBC (Bld) 8.0 % Normal 0-[address] [facility] Comment on above: Performed By: #### L 100.0100, L500.2500 ####[facility] [address] [place], [address] Neutrophils/100 WBC (Bld) 81.0 % High 47-70 [facility] Comment on above: Performed By: #### L 100.0100, L500.2500 ####[facility] [address] [place], [address] Nucleated RBC (Bld) [#/Vol] 0 10*3/uL Normal 0-5 [facility] Comment on above: Performed By: #### L 100.0100, L500.2500 ####[facility] [address] [place], [address] Platelet mean volume (Bld) [Entitic vol] 10.5 fL Normal 6.2-12.0 [facility] Comment on above: Performed By: #### L 100.0100, L500.2500 ####[facility] [address] [place], [address] Platelets (Bld) [#/Vol] 132 10*3/uL Low 150-450 [facility] Comment on above: Performed By: #### L 100.0100, L500.2500 ####[facility] [address] [place], [address] RBC (Bld) [#/Vol] 2.95 10*6/uL Low 4.6-6.2 [facility] Comment on above: Performed By: #### L 100.0100, L500.2500 ####[facility] [address] [place], [address] RDW SD 58.4 fl High 35.1-43.9 [facility] Comment on above: Performed By: #### L 100.0100, L500.2500 ####[facility] [address] [place], [place], [address] WBC (Bld) [#/Vol] 6.7 10*3/uL Normal 4.4-11.[address] [facility] Comment on above: Performed By: #### L 100.0100, L500.2500 ####[facility] [address] [place], [address] Carbon dioxide, total [Moles /volume] in Central venous bloodOrdered By: Valdez Olivo on 04-24-2025 CO2 [Moles/Vol] 27.4 mmol/L 21.0-32.0 [facility] Chloride assayOrdered By: Aiden Olivo on 04-24-2025 Chloride [Moles/Vol] 104 mmol/L 98-108 [facility] Eosinophil percentageOrdered By: Valdez Olivo on 04-24-2025 Eosinophils/100 WBC (Bld) 2.5 % 0-5 [facility] Erythrocyte distribution wid th ratioOrdered By: Valdez Olivo on 04-24-2025 Erythrocyte distribution width (RBC) [Ratio] 17.6 % High 11.6-14.6 [facility] Erythrocyte distribution wid th standard deviationOrdered By: Valdez Olivo on 04-24-2025 Erythrocyte distribution width (RBC) [Ratio] 58.4 fl High 35.1-43.9 [facility] Glomerular filtration rate ( GFR) estimation/1.73 sq m using serum, plasma, or whole bOrdered By: Valdez Olivo on 04-24-2025 GFR/1.73 sq M.predicted among non-blacks MDRD (S/P/Bld) [Vol rate/Area] 57 mL/min/{1.73_m2} Low >60 [facility] Hematocrit Auto (Bld) [Volum e fraction]Ordered By: Valdez Olivo on 04-24-2025 Hematocrit (Bld) [Volume fraction] 26.6 % Low 40-54 [facility] Hemoglobin measurementOrdere d By: Valdez Olivo on 04-24-2025 Hemoglobin (Bld) [Mass/Vol] 8.0 g/dL Low 13.0-16.5 [facility] Immature granulocytes/100 WB C Auto (Bld)Ordered By: Valdez Olivo on 04-24-2025 Immature granulocytes/100 WBC (Bld) 0.900 % 0.0-0.9 [facility] MCV (mean corpuscular volume ) determinationOrdered By: Valdez Olivo on 04-24-2025 MCV (RBC) [Entitic vol] 90.2 fL 80-[address] [facility] Mean corpuscular hemoglobin (MCH) determinationOrdered By: Valdez Olivo on 04-24-2025 MCH (RBC) [Entitic mass] 27.1 pg 27.0-32.0 [facility] Monocyte percentageOrdered B y: Valdez Olivo on 04-24-2025 Monocytes/100 WBC (Bld) 8.0 % 0-[address] [facility] Neutrophil percentageOrdered By: Valdez Olivo on 04-24-2025 Neutrophils/100 WBC (Bld) 81.0 % High 47-70 [facility] Platelet countOrdered By: Aiden Olivo on 04-24-2025 Platelets (Bld) [#/Vol] 132 10*3/uL Low 150-450 [facility] Potassium measurement (mass/ volume)Ordered By: Valdez Olivo on 04-24-2025 Potassium (Unsp spec) [Mass/Vol] 4.2 mmol/L 3.3-5.1 [facility] RBC Auto (Bld) [#/Vol]Ordere d By: Valdez Olivo 04-24-2025 RBC (Bld) [#/Vol] 2.95 10*6/uL Low 4.6-6.2 [facility] Serum creatinine measurement (mass/volume)Ordered By: Valdez Olivo on 04-24-2025 Creatinine [Mass/Vol] 1.28 mg/dL High 0.70-1.20 [facility] Serum glucose measurement (m ass/volume)Ordered By: Valdez Olivo on 04-24-2025 Glucose [Mass/Vol] 153 mg/dL High 70-[address] [facility] Serum or plasma calcium [place] urement (mass/volume)Ordered By: Valdez Olivo 04-24-2025 Calcium [Mass/Vol] 8.6 mg/dL 7.6-11.[address] [facility] Serum or plasma urea nitroge n measurement (mass/volume)Ordered By: Valdez Olivo on 04-24-2025 Urea nitrogen [Mass/Vol] 21 mg/dL High 4-19 [facility] Sodium levelOrdered By: Valdez Olivo on 04-24-2025 Sodium [Moles/Vol] 140 mmol/L 133-[address] [facility] White blood cell (WBC) count Ordered By: Valdez Olivo on 04-24-2025 WBC (Bld) [#/Vol] 6.7 10*3/uL 4.4-11.[address] [facility] Bedside Glucoseon 04-23-2025 FINGERSTICK GLU 164 mg/dL High 74-106 [facility] Comment on above: Result Comment: KODY GEMENT OF PATIENT CARE PER NURSING PROTOCOL Performed By: #### L 501.080 ####[facility] [address] [place], [address] FINGERSTICK GLU 127 mg/dL [address] Comment on above: Result Comment: KODY GEMENT OF PATIENT CARE PER NURSING PROTOCOL Performed By: #### L 501.080 ####[facility] [address] [place], [address] FINGERSTICK GLU 231 mg/dL High [address] [place] [address] Comment on above: Result Comment: KODY GEMENT OF PATIENT CARE PER NURSING PROTOCOL Performed By: #### L 501.080 ####[facility] [address] [place], [address] FINGERSTICK GLU 130 mg/dL High [address] [place] [address] Comment on above: Result Comment: KODY GEMENT OF PATIENT CARE PER NURSING PROTOCOL Performed By: #### L 501.080 ####[facility] [address] [place], [address] [facility] deOrdered By: Tonio Mccallum on 04-23-2025 Glucose [Mass/Vol] 127 mg/dL High 74-[address] [facility] Bedside Glucoseon 04-22-2025 FINGERSTICK GLU 120 mg/dL High -106 [facility] Comment on above: Result Comment: KODY GEMENT OF PATIENT CARE PER NURSING PROTOCOL Performed By: #### L 501.080 ####[facility] [address] [place], [address] FINGERSTICK GLU 151 mg/dL High 74-106 [facility] Comment on above: Result Comment: KODY GEMENT OF PATIENT CARE PER NURSING PROTOCOL Performed By: #### L 501.080 ####[facility] [address] [place], [address] FINGERSTICK GLU 231 mg/dL High 74-106 [facility] Comment on above: Result Comment: KODY GEMENT OF PATIENT CARE PER NURSING PROTOCOL Performed By: #### L 501.080 ####[facility] [address] [place], [address] FINGERSTICK GLU 119 mg/dL High 74-106 [facility] Comment on above: Result Comment: KODY GEMENT OF PATIENT CARE PER NURSING PROTOCOL Performed By: #### L 501.080 ####[facility] [address] [place], [address] Anion gap in Serum or Plasma Ordered By: Tonio Mccallum on 04-21-2025 Anion gap [Moles/Vol] 10 mmol/L 5-15 [facility] BUN/creatinine ratioOrdered By: Tonio Mccallum on 04-21-2025 Urea nitrogen/Creatinine [Mass ratio] 20.6 mg/mg High 10-20 [facility] Basic Metabolic Profile (BMP )on 04-21-2025 BUN/CRE 20.6 RATIO High 10-20 [facility] Comment on above: Performed By: #### L 500.2500 ####[facility] [address] [place], [address] Calcium [Mass/Vol] 8.6 mg/dL Normal 7.6-11.[address] [facility] Comment on above: Performed By: #### L 500.2500 ####[facility] [address] [place], [address] Chloride [Moles/Vol] 96 mmol/L Low 98-108 [facility] Comment on above: Performed By: #### L 500.2500 ####[facility] [address] [place], [address] CO2 [Moles/Vol] 29.6 mmol/L Normal 21.0-32.0 [facility] Comment on above: Performed By: #### L 500.2500 ####[facility] [address] [place], [address] Creatinine [Mass/Vol] 1.56 mg/dL High 0.70-1.20 [facility] Comment on above: Performed By: #### L 500.2500 ####[facility] [address] [place], [address] ECRCL 34.08 ml/min Low 50-250 [facility] Comment on above: Performed By: #### L 500.2500 ####[facility] [address] [place], [address] GAP 10 Normal 5-15 [facility] Comment on above: Performed By: #### L 500.2500 ####[facility] [address] [place], [address] GFR/1.73 sq M.predicted among non-blacks MDRD (S/P/Bld) [Vol rate/Area] 45 mL/min/{1.73_m2} Low >60 [facility] Comment on above: Result Comment: mL/m in/1.73m2 CKD-EPI Creatinine Equation (2020) Performed By: #### L 500.2500 ####[facility] [address] [place], [address] Glucose [Mass/Vol] 137 mg/dL High 70-[address] [facility] Comment on above: Performed By: #### L 500.2500 ####[facility] [address] [place], [address] Potassium [Moles/Vol] 3.5 mmol/L Normal 3.3-5.1 [facility] Comment on above: Performed By: #### L 500.2500 ####[facility] [address] [place], [address] Sodium [Moles/Vol] 136 mmol/L Normal 133-[address] [facility] Comment on above: Performed By: #### L 500.2500 ####[facility] [address] [place], [address] Urea nitrogen [Mass/Vol] 32 mg/dL High 4-19 [facility] Comment on above: Performed By: #### L 500.2500 ####[facility] [address] [place], [address] Bedside Glucoseon 04-21-2025 FINGERSTICK GLU 140 mg/dL High 74-106 [facility] Comment on above: Result Comment: KODY GEMENT OF PATIENT CARE PER NURSING PROTOCOL Performed By: #### L 501.080 ####[facility] [address] [place], [address] FINGERSTICK GLU 220 mg/dL High 74-106 [facility] Comment on above: Result Comment: KODY GEMENT OF PATIENT CARE PER NURSING PROTOCOL Performed By: #### L 501.080 ####[facility] [address] [place], [address] FINGERSTICK GLU 231 mg/dL High 74-106 [facility] Comment on above: Result Comment: KODY GEMENT OF PATIENT CARE PER NURSING PROTOCOL Performed By: #### L 501.080 ####[facility] [address] [place], [address] FINGERSTICK GLU 134 mg/dL High 74-106 [facility] Comment on above: Result Comment: KODY GEMENT OF PATIENT CARE PER NURSING PROTOCOL Performed By: #### L 501.080 ####[facility] [address] [place], [address] Carbon dioxide, total [Moles /volume] in Central venous bloodOrdered By: Tonio Mccallum on 04-21-2025 CO2 [Moles/Vol] 29.6 mmol/L 21.0-32.0 [facility] Chloride assayOrdered By: Min Mccallum on 04-21-2025 Chloride [Moles/Vol] 96 mmol/L Low 98-108 [facility] Electrocardiogram reportOrde red By: Willian Glaser on 04-21-2025 EKG study [facility] Work Phone: Glomerular filtration rate ( GFR) estimation/1.73 sq m using serum, plasma, or whole bOrdered By: Tonio Mccallum on 04-21-2025 GFR/1.73 sq M.predicted among non-blacks MDRD (S/P/Bld) [Vol rate/Area] 45 mL/min/{1.73_m2} Low >60 [facility] Potassium measurement (mass/ volume)Ordered By: Tonio Mccallum on 04-21-2025 Potassium (Unsp spec) [Mass/Vol] 3.5 mmol/L 3.3-5.1 [facility] Serum creatinine measurement (mass/volume)Ordered By: Tonio Mccallum on 04-21-2025 Creatinine [Mass/Vol] 1.56 mg/dL High 0.70-1.20 [facility] Serum glucose measurement (m ass/volume)Ordered By: Tonio Mccallum on 04-21-2025 Glucose [Mass/Vol] 137 mg/dL High 70-[address] [facility] Serum or plasma calcium [place] urement (mass/volume)Ordered By: Tonio Mccallum on 04-21-2025 Calcium [Mass/Vol] 8.6 mg/dL 7.6-11.[address] [facility] Serum or plasma urea nitroge n measurement (mass/volume)Ordered By: Tonio Mccallum on 04-21-2025 Urea nitrogen [Mass/Vol] 32 mg/dL High 4-19 [facility] Sodium levelOrdered By: Tonio Mccallum on 04-21-2025 Sodium [Moles/Vol] 136 mmol/L 133-[address] [facility] Basic Metabolic Profile (BMP )on 04-20-2025 BUN/CRE 22.4 RATIO High 10-20 [facility] Comment on above: Performed By: #### L 100.0500, L500.2500 ####[facility] [address] [place], [address] Calcium [Mass/Vol] 9.1 mg/dL Normal 7.6-11.[address] [facility] Comment on above: Performed By: #### L 100.0500, L500.2500 ####[facility] [address] [place], [address] Chloride [Moles/Vol] 91 mmol/L Low 98-108 [facility] Comment on above: Performed By: #### L 100.0500, L500.2500 ####[facility] [address] [place], [address] CO2 [Moles/Vol] 32.1 mmol/L High 21.0-32.0 [facility] Comment on above: Performed By: #### L 100.0500, L500.2500 ####[facility] [address] [place], [address] Creatinine [Mass/Vol] 1.65 mg/dL High 0.70-1.20 [facility] Comment on above: Performed By: #### L 100.0500, L500.2500 ####[facility] [address] [place], [address] ECRCL 32.22 ml/min Low 50-250 [facility] Comment on above: Performed By: #### L 100.0500, L500.2500 ####[facility] [address] [place], [address] GAP 12 Normal 5-15 [facility] Comment on above: Performed By: #### L 100.0500, L500.2500 ####[facility] [address] [place], [address] GFR/1.73 sq M.predicted among non-blacks MDRD (S/P/Bld) [Vol rate/Area] 42 mL/min/{1.73_m2} Low >60 [facility] Comment on above: Result Comment: mL/m in/1.73m2 CKD-EPI Creatinine Equation (2020) Performed By: #### L 100.0500, L500.2500 ####[facility] [address] [place], [address] Glucose [Mass/Vol] 154 mg/dL High 70-[address] [facility] Comment on above: Performed By: #### L 100.0500, L500.2500 ####[facility] [address] [place], [address] Potassium [Moles/Vol] 3.4 mmol/L Normal 3.3-5.1 [facility] Comment on above: Performed By: #### L 100.0500, L500.2500 ####[facility] [address] [place], [address] Sodium [Moles/Vol] 135 mmol/L Normal 133-[address] [facility] Comment on above: Performed By: #### L 100.0500, L500.2500 ####[facility] [address] [place], [address] Urea nitrogen [Mass/Vol] 37 mg/dL High 4-19 [facility] Comment on above: Performed By: #### L 100.0500, L500.2500 ####[facility] [address] [place], [address] Bedside Glucoseon 04-20-2025 FINGERSTICK GLU 213 mg/dL High 74-106 [facility] Comment on above: Result Comment: KODY STRONG OF PATIENT CARE PER NURSING PROTOCOL Performed By: #### L 501.080 ####[facility] [address] [place], [address] FINGERSTICK GLU 173 mg/dL High 74-106 [facility] Comment on above: Result Comment: KODY GEMENT OF PATIENT CARE PER NURSING PROTOCOL Performed By: #### L 501.080 ####[facility] [address] [place], [address] FINGERSTICK GLU 178 mg/dL High 74-106 [facility] Comment on above: Result Comment: KODY GEMENT OF PATIENT CARE PER NURSING PROTOCOL Performed By: #### L 501.080 ####[facility] [address] [place], [address] FINGERSTICK GLU 156 mg/dL High 74-106 [facility] Comment on above: Result Comment: KODY GEMENT OF PATIENT CARE PER NURSING PROTOCOL Performed By: #### L 501.080 ####[facility] [address] [place], [address] CBC-Complete Blood Cnt No Di on 04-20-2025 Erythrocyte distribution width (RBC) [Ratio] 17.1 % High 11.6-14.6 [facility] Comment on above: Performed By: #### L 100.0500, L500.2500 ####[facility] [address] [place], [address] Hematocrit (Bld) [Volume fraction] 29.4 % Low 40-54 [facility] Comment on above: Performed By: #### L 100.0500, L500.2500 ####[facility] [address] [place], [address] Hemoglobin (Bld) [Mass/Vol] 9.1 g/dL Low 13.0-16.5 [facility] Comment on above: Performed By: #### L 100.0500, L500.2500 ####[facility] [address] [place], [address] MCH (RBC) [Entitic mass] 26.8 pg Low 27.0-32.0 [facility] Comment on above: Performed By: #### L 100.0500, L500.2500 ####[facility] [address] [place], [address] MCHC (RBC) [Mass/Vol] 31.0 g/dL Low 32-36 [facility] Comment on above: Performed By: #### L 100.0500, L500.2500 ####[facility] [address] [place], [address] MCV (RBC) [Entitic vol] 86.7 fL Normal 80-[address] [facility] Comment on above: Performed By: #### L 100.0500, L500.2500 ####[facility] [address] [place], [address] Platelet mean volume (Bld) [Entitic vol] 11.0 fL Normal 6.2-12.0 [facility] Comment on above: Performed By: #### L 100.0500, L500.2500 ####[facility] [address] [place], [address] Platelets (Bld) [#/Vol] 192 10*3/uL Normal 150-450 [facility] Comment on above: Performed By: #### L 100.0500, L500.2500 ####[facility] [address] [place], [address] RBC (Bld) [#/Vol] 3.39 10*6/uL Low 4.6-6.2 [facility] Comment on above: Performed By: #### L 100.0500, L500.2500 ####[facility] [address] [place], [address] RDW SD 53.4 fl High 35.1-43.9 [facility] Comment on above: Performed By: #### L 100.0500, L500.2500 ####[facility] [address] [place], [address] WBC (Bld) [#/Vol] 9.9 10*3/uL Normal 4.4-11.[address] [facility] Comment on above: Performed By: #### L 100.0500, L500.2500 ####[facility] [address] [place], [address] Erythrocyte distribution wid th ratioOrdered By: Kwaku Narayanan on 04-20-2025 Erythrocyte distribution width (RBC) [Ratio] 17.1 % High 11.6-14.6 [facility] Erythrocyte distribution wid th standard deviationOrdered By: Kwaku Narayanan on 04-20-2025 Erythrocyte distribution width (RBC) [Ratio] 53.4 fl High 35.1-43.9 [facility] Hematocrit Auto (Bld) [Volum e fraction]Ordered By: Kwaku Narayanan on 04-20-2025 Hematocrit (Bld) [Volume fraction] 29.4 % Low 40-54 [facility] Hemoglobin measurementOrdere d By: Kwaku Narayanan on 04-20-2025 Hemoglobin (Bld) [Mass/Vol] 9.1 g/dL Low 13.0-16.5 [facility] MCV (mean corpuscular volume ) determinationOrdered By: Kwaku Narayanan on 04-20-2025 MCV (RBC) [Entitic vol] 86.7 fL 80-[address] [facility] Mean corpuscular hemoglobin (MCH) determinationOrdered By: Kwaku Narayanan on 04-20-2025 MCH (RBC) [Entitic mass] 26.8 pg Low 27.0-32.0 [facility] Platelet countOrdered By: Sean Narayanan on 04-20-2025 Platelets (Bld) [#/Vol] 192 10*3/uL 150-450 [facility] RBC Auto (Bld) [#/Vol]Ordere d By: Kwaku Narayanan on 04-20-2025 RBC (Bld) [#/Vol] 3.39 10*6/uL Low 4.6-6.2 [facility] White blood cell (WBC) count Ordered By: Kwaku Narayanan on 04-20-2025 WBC (Bld) [#/Vol] 9.9 10*3/uL 4.4-11.[address] [facility] 12 Lead EKGon 04-19-2025 12 Lead EKG Normal [facility] Absolute lymphocyte countOrd ered By: Casper Iniguez on 04-19-2025 Lymphocytes Auto (Unsp spec) [#/Vol] 0.97 10*3/uL 0.83-4.51 [facility] Anion gap in Serum or Plasma Ordered By: Casper Iniguez on 04-19-2025 Anion gap [Moles/Vol] 11 mmol/L 5-15 [facility] Automated lymphocyte count a s percentage of total leukocytesOrdered By: Casper Iniguez on 04-19-2025 Lymphocytes/100 WBC Auto (Unsp spec) 9.1 % Low 19-41 [facility] BUN/creatinine ratioOrdered By: Casper Iniguez on 04-19-2025 Urea nitrogen/Creatinine [Mass ratio] 22.7 mg/mg High 10-20 [facility] Basophil percentageOrdered B y: Casper Iniguez on 04-19-2025 Basophils/100 WBC (Bld) 0.3 % 0-[address] [facility] Bedside Glucoseon 04-19-2025 FINGERSTICK GLU 178 mg/dL High 74-106 [facility] Comment on above: Result Comment: KODY GEMENT OF PATIENT CARE PER NURSING PROTOCOL Performed By: #### L 501.080 ####[facility] [address] [facility] [address] FINGERSTICK GLU 193 mg/dL High 74-106 [facility] Comment on above: Result Comment: KODY GEMENT OF PATIENT CARE PER NURSING PROTOCOL Performed By: #### L 501.080 ####[facility] [address] [facility] [address] FINGERSTICK GLU 91 mg/dL Normal -[address] [place] [address] Comment on above: Result Comment: KODY GEMENT OF PATIENT CARE PER NURSING PROTOCOL Performed By: #### L 501.080 ####[facility] [address] [place], [address] FINGERSTICK GLU 123 mg/dL High 74-106 [facility] Comment on above: Result Comment: KODY STRONG OF PATIENT CARE PER NURSING PROTOCOL Performed By: #### L 501.080 ####[facility] [address] [place], [address] Bilirubin, totalOrdered By: Casper Iniguez on 04-19-2025 Bilirubin [Mass/Vol] 0.55 mg/dL 0.00-1.30 [facility] CBC W/Diff, Automatedon 03-22 Absolute Lymph 0.97 X10 3/uL Normal 0.83-4.51 [facility] Comment on above: Performed By: #### L 100.0100, L501.4021, L500.4050 ####[facility] [address] [place], [address] Absolute Neut 8.0 X10 3/uL High 2.0-7.7 [facility] Comment on above: Performed By: #### L 100.0100, L501.4021, L500.4050 ####[facility] [address] [place], [address] Basophils/100 WBC (Bld) 0.3 % Normal 0-[address] [facility] Comment on above: Performed By: #### L 100.0100, L501.4021, L500.4050 ####[facility] [address] [place], [address] Eosinophils/100 WBC (Bld) 2.7 % Normal 0-5 [facility] Comment on above: Performed By: #### L 100.0100, L501.4021, L500.4050 ####[facility] [address] [place], [address] Erythrocyte distribution width (RBC) [Ratio] 17.2 % High 11.6-14.6 [facility] Comment on above: Performed By: #### L 100.0100, L501.4021, L500.4050 ####[facility] [address] [place], [address] Hematocrit (Bld) [Volume fraction] 30.6 % Low 40-54 [facility] Comment on above: Performed By: #### L 100.0100, L501.4021, L500.4050 ####[facility] [address] [place], [address] Hemoglobin (Bld) [Mass/Vol] 9.6 g/dL Low 13.0-16.5 [facility] Comment on above: Performed By: #### L 100.0100, L501.4021, L500.4050 ####[facility] [address] [place], [address] IG% 1.600 High 0.0-0.9 [facility] Comment on above: Result Comment: IG% - Immature Granulocytes (promyelocytes, myelocytes andmetamyelocytes) > 1% indicates that a LEFT SHIFT is Present. Performed By: #### L 100.0100, L501.4021, L500.4050 ####[facility] [address] [place], [address] Lymphocytes/100 WBC (Bld) 9.1 % Low 19-41 [facility] Comment on above: Performed By: #### L 100.0100, L501.4021, L500.4050 ####[facility] [address] [place], [address] MCH (RBC) [Entitic mass] 27.4 pg Normal 27.0-32.0 [facility] Comment on above: Performed By: #### L 100.0100, L501.4021, L500.4050 ####[facility] [address] [place], [address] MCHC (RBC) [Mass/Vol] 31.4 g/dL Low 32-36 [facility] Comment on above: Performed By: #### L 100.0100, L501.4021, L500.4050 ####[facility] [address] [place], [address] MCV (RBC) [Entitic vol] 87.2 fL Normal 80-[address] [facility] Comment on above: Performed By: #### L 100.0100, L501.4021, L500.4050 ####[facility] [address] [place], [address] Monocytes/100 WBC (Bld) 11.3 % High 0-[address] [facility] Comment on above: Performed By: #### L 100.0100, L501.4021, L500.4050 ####[facility] [address] [place], [address] Neutrophils/100 WBC (Bld) 75.0 % High 47-70 [facility] Comment on above: Performed By: #### L 100.0100, L501.4021, L500.4050 ####[facility] [address] [place], [address] Nucleated RBC (Bld) [#/Vol] 0 10*3/uL Normal 0-5 [facility] Comment on above: Performed By: #### L 100.0100, L501.4021, L500.4050 ####[facility] [address] [place], [address] Platelet mean volume (Bld) [Entitic vol] 11.1 fL Normal 6.2-12.0 [facility] Comment on above: Performed By: #### L 100.0100, L501.4021, L500.4050 ####[facility] [address] [place], [address] Platelets (Bld) [#/Vol] 204 10*3/uL Normal 150-450 [facility] Comment on above: Performed By: #### L 100.0100, L501.4021, L500.4050 ####[facility] [address] [place], [address] RBC (Bld) [#/Vol] 3.51 10*6/uL Low 4.6-6.2 [facility] Comment on above: Performed By: #### L 100.0100, L501.4021, L500.4050 ####[facility] [address] [place], [address] RDW SD 54.8 fl High 35.1-43.9 [facility] Comment on above: Performed By: #### L 100.0100, L501.4021, L500.4050 ####[facility] [address] [place], [address] WBC (Bld) [#/Vol] 10.7 10*3/uL Normal 4.4-11.0 [facility] Comment on above: Performed By: #### L 100.0100, L501.4021, L500.4050 ####[facility] [address] [place], [address] Carbon dioxide, total [Moles /volume] in Central venous bloodOrdered By: Casper Iniguez on 04-19-2025 CO2 [Moles/Vol] 37.3 mmol/L High 21.0-32.0 [facility] Chest 1 View (Portable)on Chest 1 View (Portable) Normal [facility] Chloride assayOrdered By: Akin Iniguez on 04-19-2025 Chloride [Moles/Vol] 87 mmol/L Low 98-108 [facility] Comprehensive Metabolic Prof ilon 04-19-2025 Albumin [Mass/Vol] 3.4 g/dL Normal 3.4-4.[address] [facility] Comment on above: Performed By: #### L 100.0100, L501.4021, L500.4050 ####[facility] [address] [place], [address] Albumin/Globulin [Mass ratio] 1.0 {ratio} Normal 0.9-2.4 [facility] Comment on above: Performed By: #### L 100.0100, L501.4021, L500.4050 ####[facility] [address] [place], [address] ALK PHOS 79 U/L Normal 40-129 [facility] Comment on above: Performed By: #### L 100.0100, L501.4021, L500.4050 ####[facility] [address] [place], [address] ALT [Catalytic activity/Vol] 27 U/L Normal <=46 [facility] Comment on above: Performed By: #### L 100.0100, L501.4021, L500.4050 ####[facility] [address] [place], [address] AST [Catalytic activity/Vol] 30 U/L Normal <=37 [facility] Comment on above: Performed By: #### L 100.0100, L501.4021, L500.4050 ####[facility] [address] [place], [address] Bilirubin [Mass/Vol] 0.55 mg/dL Normal 0.00-1.30 [facility] Comment on above: Performed By: #### L 100.0100, L501.4021, L500.4050 ####[facility] [address] [place], [address] BUN/CRE 22.7 RATIO High 10-20 [facility] Comment on above: Performed By: #### L 100.0100, L501.4021, L500.4050 ####[facility] [address] [place], [address] Calcium [Mass/Vol] 9.4 mg/dL Normal 7.6-11.[address] [facility] Comment on above: Performed By: #### L 100.0100, L501.4021, L500.4050 ####[facility] [address] [place], [address] Chloride [Moles/Vol] 87 mmol/L Low 98-108 [facility] Comment on above: Performed By: #### L 100.0100, L501.4021, L500.4050 ####[facility] [address] [place], [address] CO2 [Moles/Vol] 37.3 mmol/L High 21.0-32.0 [facility] Comment on above: Performed By: #### L 100.0100, L501.4021, L500.4050 ####[facility] [address] [place], [address] Creatinine [Mass/Vol] 1.74 mg/dL High 0.70-1.20 [facility] Comment on above: Performed By: #### L 100.0100, L501.4021, L500.4050 ####[facility] [address] [place], [address] ECRCL 30.56 ml/min Low 50-250 [facility] Comment on above: Performed By: #### L 100.0100, L501.4021, L500.4050 ####[facility] [address] [place], [address] GAP 11 Normal 5-15 [facility] Comment on above: Performed By: #### L 100.0100, L501.4021, L500.4050 ####[facility] [address] [place], [address] GFR/1.73 sq M.predicted among non-blacks MDRD (S/P/Bld) [Vol rate/Area] 39 mL/min/{1.73_m2} Low >60 [facility] Comment on above: Result Comment: mL/m in/1.73m2 CKD-EPI Creatinine Equation (2020) Performed By: #### L 100.0100, L501.4021, L500.4050 ####[facility] [address] [place], [address] Globulin (S) [Mass/Vol] 3.4 g/dL Normal 2.2-4.[address] [facility] Comment on above: Performed By: #### L 100.0100, L501.4021, L500.4050 ####[facility] [address] [place], [address] Glucose [Mass/Vol] 132 mg/dL High 70-[address] [facility] Comment on above: Performed By: #### L 100.0100, L501.4021, L500.4050 ####[facility] [address] [place], [address] Potassium [Moles/Vol] 3.5 mmol/L Normal 3.3-5.1 [facility] Comment on above: Performed By: #### L 100.0100, L501.4021, L500.4050 ####[facility] [address] [place], [address] Sodium [Moles/Vol] 136 mmol/L Normal 133-[address] [facility] Comment on above: Performed By: #### L 100.0100, L501.4021, L500.4050 ####[facility] [address] [place], [address] T PROT 6.8 g/dL Normal 5.9-8.4 [facility] Comment on above: Performed By: #### L 100.0100, L501.4021, L500.4050 ####[facility] [address] [place], [address] Urea nitrogen [Mass/Vol] 40 mg/dL High 4-19 [facility] Comment on above: Performed By: #### L 100.0100, L501.4021, L500.4050 ####[facility] [address] [facility] [place], [address] Emergency Department Summary on 04-19-2025 Emergency Department Summary Normal [facility] Eosinophil percentageOrdered By: Casper Iniguez on 04-19-2025 Eosinophils/100 WBC (Bld) 2.7 % 0-5 [facility] Erythrocyte distribution wid th ratioOrdered By: Casper Iniguez on 04-19-2025 Erythrocyte distribution width (RBC) [Ratio] 17.2 % High 11.6-14.6 [facility] Erythrocyte distribution wid th standard deviationOrdered By: Casepr Iniguez on 04-19-2025 Erythrocyte distribution width (RBC) [Ratio] 54.8 fl High 35.1-43.9 [facility] Glomerular filtration rate ( GFR) estimation/1.73 sq m using serum, plasma, or whole bOrdered By: Casper Iniguez on 04-19-2025 GFR/1.73 sq M.predicted among non-blacks MDRD (S/P/Bld) [Vol rate/Area] 39 mL/min/{1.73_m2} Low >60 [facility] Glucose measurement at [facility] deOrdered By: Valdez Olivo on 04-19-2025 Glucose [Mass/Vol] 123 mg/dL High 74-[address] [facility] H AND P Exam - Hospitaliston 04-19-2025 H&P Exam - Hospitalist Normal [facility] Hematocrit Auto (Bld) [Volum e fraction]Ordered By: Casper Iniguez on 04-19-2025 Hematocrit (Bld) [Volume fraction] 30.6 % Low 40-54 [facility] Hemoglobin measurementOrdere d By: Casper Iniguez on 04-19-2025 Hemoglobin (Bld) [Mass/Vol] 9.6 g/dL Low 13.0-16.5 [facility] Immature granulocytes/100 WB C Auto (Bld)Ordered By: Casper Iniguez on 04-19-2025 Immature granulocytes/100 WBC (Bld) 1.600 % High 0.0-0.9 [facility] L501.4021on 04-19-2025 Trop T High Sen 99 ng/L Invalid Interpretation Code <=22 [facility] Comment on above: Result Comment: Crit ical Result(s) Called at 0923: by: RENAE ALICEA. ??Results read back by same. Performed By: #### L 100.0100, L501.4021, L500.4050 ####[facility] [address] [place], [address] MCV (mean corpuscular volume ) determinationOrdered By: Casper Iniguez on 04-19-2025 MCV (RBC) [Entitic vol] 87.2 fL 80-[address] [facility] Magnesiumon 04-19-2025 Magnesium [Mass/Vol] 2.1 mg/dL Normal 1.5-2.2 [facility] Comment on above: Performed By: #### L 501.2300, L501.5200, L503.7505 ####[facility] [address] [place], [place], [address] Magnesium measurement (mass/ volume)Ordered By: Kwaku Narayanan on 04-19-2025 Magnesium (Unsp spec) [Mass/Vol] 2.1 mg/dL 1.5-2.2 [facility] Mean corpuscular hemoglobin (MCH) determinationOrdered By: Casper Iniguez on 04-19-2025 MCH (RBC) [Entitic mass] 27.4 pg 27.0-32.0 [facility] Monocyte percentageOrdered B y: Casper Iniguez on 04-19-2025 Monocytes/100 WBC (Bld) 11.3 % High 0-[address] [facility] Natriuretic peptide.B prohor girish N-Terminal [Mass/volume] in Serum or PlasmaOrdered By: Kwaku Narayanan on 04-19-2025 Natriuretic peptide.B prohormone N-Terminal [Mass/Vol] 3388 pg/mL High <1800 [facility] Neutrophil percentageOrdered By: Casper Iniguez on 04-19-2025 Neutrophils/100 WBC (Bld) 75.0 % High 47-70 [facility] No Panel InformationOrdered By: Casper Iniguez on 04-19-2025 30 U/L <38 [facility] Phosphoruson 04-19-2025 Phosphate [Mass/Vol] 3.9 mg/dL Normal 2.7-4.5 [facility] Comment on above: Performed By: #### L 501.2300, L501.5200, L503.7505 ####[facility] [address] [place], [place], [id number] Platelet countOrdered By: Akin Iniguez on 04-19-2025 Platelets (Bld) [#/Vol] 204 10*3/uL 150-450 [facility] Potassium measurement (mass/ volume)Ordered By: Casper Iniguez on 04-19-2025 Potassium (Unsp spec) [Mass/Vol] 3.5 mmol/L 3.3-5.1 [facility] Pro- Brain NATRIURETIC PEPTI Adrienne 04-19-2025 Natriuretic peptide B (Bld) [Mass/Vol] 3388 pg/mL High <=1800 [facility] Comment on above: Result Comment: Hear t Failure Unlikely: < 300 pg/mLHeart Failure Likely< 50 Years: > 450 pg/mL50-75 Years: > 900 pg/mL>75 Years: > 1800 pg/mL Performed By: #### L 501.2300, L501.5200, L503.7505 ####[facility] [address] [place], [place], [id number] RBC Auto (Bld) [#/Vol]Ordere d By: Casper Iniguez on 04-19-2025 RBC (Bld) [#/Vol] 3.51 10*6/uL Low 4.6-6.2 [facility] Serum creatinine measurement (mass/volume)Ordered By: Casper Iniguez on 04-19-2025 Creatinine [Mass/Vol] 1.74 mg/dL High 0.70-1.20 [facility] Serum globulin measurementOr dered By: Casper Iniguez on 04-19-2025 Globulin (S) [Mass/Vol] 3.4 g/dL 2.2-4.[address] [facility] Serum glucose measurement (m ass/volume)Ordered By: Casper Iniguez on 04-19-2025 Glucose [Mass/Vol] 132 mg/dL High 70-[address] [facility] Serum or plasma alanine ortiz otransferase (ALT) measurementOrdered By: Casper Iniguez on 04-19-2025 ALT [Catalytic activity/Vol] 27 U/L <47 [facility] Serum or plasma albumin [place] urement (mass/volume)Ordered By: Casper Iniguez on 04-19-2025 Albumin [Mass/Vol] 3.4 g/dL 3.4-4.[address] [facility] Serum or plasma albumin/glob ulin mass ratioOrdered By: Casper Iniguez on 04-19-2025 Albumin/Globulin [Mass ratio] 1.0 {ratio} 0.9-2.4 [facility] Serum or plasma alkaline [place] sphatase measurementOrdered By: Casper Iniguez on 04-19-2025 ALP [Catalytic activity/Vol] 79 U/L 40-129 [facility] Serum or plasma calcium [place] urement (mass/volume)Ordered By: Casper Iniguez on 04-19-2025 Calcium [Mass/Vol] 9.4 mg/dL 7.6-11.[address] [facility] Serum or plasma urea nitroge n measurement (mass/volume)Ordered By: Casper Iniguez on 04-19-2025 Urea nitrogen [Mass/Vol] 40 mg/dL High 4-19 [facility] Sodium levelOrdered By: Rema Iniguez on 04-19-2025 Sodium [Moles/Vol] 136 mmol/L 133-[address] [facility] Total proteinOrdered By: Shira Iniguez on 04-19-2025 Protein [Mass/Vol] 6.8 g/dL 5.9-8.[address] [facility] Troponin T HS 2 HRon 025 Trop T High Sen 95 ng/L Invalid Interpretation Code <=22 [facility] Comment on above: Result Comment: Crit ical Result(s) Called at 1126: by: RENAE GIRON. ??Results read back by same. Performed By: #### L 499.0042 ####[facility] [address] [place], [place], [id number] Troponin T HS 4 HRon 025 Trop T High Sen 93 ng/L Invalid Interpretation Code <=22 [facility] Comment on above: Result Comment: Crit ical Result(s) Called at 1326: by: RENAE GIRON. ??Results read back by same. Performed By: #### L [id number] ####[facility] [id number] [place], [place], [id number] Troponin T.cardiac [Mass/vol ume] in Serum or Plasma by High sensitivity methodOrdered By: Casper Iniguze on 04-19-2025 Troponin T.cardiac High sensitivity method [Mass/Vol] 93 ng/L High <22 [facility] Troponin T.cardiac High sensitivity method [Mass/Vol] 95 ng/L High <22 [facility] Troponin T.cardiac High sensitivity method [Mass/Vol] 99 ng/L High <22 [facility] White blood cell (WBC) count Ordered By: Casper Iniguez on 04-19-2025 WBC (Bld) [#/Vol] 10.7 10*3/uL 4.4-11.0 [facility] Absolute lymphocyte countOrd ered By: Valdez Olivo on 04-18-2025 Lymphocytes Auto (Unsp spec) [#/Vol] 0.61 10*3/uL Low 0.83-4.51 [facility] Anion gap in Serum or Plasma Ordered By: Valdez Olivo on 04-18-2025 Anion gap [Moles/Vol] 12 mmol/L 5-15 [facility] Automated lymphocyte count a s percentage of total leukocytesOrdered By: Valdez Olivo on 04-18-2025 Lymphocytes/100 WBC Auto (Unsp spec) 6.2 % Low 19-41 [facility] BUN/creatinine ratioOrdered By: Valdez Olivo on 04-18-2025 Urea nitrogen/Creatinine [Mass ratio] 25.1 mg/mg High 10-20 [facility] Basic Metabolic Profile (BMP )on 04-18-2025 BUN/CRE 25.1 RATIO High 10-20 [facility] Comment on above: Performed By: #### L 100.0100, L500.2500 ####[facility] [address] [place], [address] Calcium [Mass/Vol] 9.1 mg/dL Normal 7.6-11.[address] [facility] Comment on above: Performed By: #### L 100.0100, L500.2500 ####[facility] [address] [place], [address] Chloride [Moles/Vol] 89 mmol/L Low 98-108 [facility] Comment on above: Performed By: #### L 100.0100, L500.2500 ####[facility] [address] [place], [address] CO2 [Moles/Vol] 36.0 mmol/L High 21.0-32.0 [facility] Comment on above: Performed By: #### L 100.0100, L500.2500 ####[facility] [address] [place], [address] Creatinine [Mass/Vol] 1.73 mg/dL High 0.70-1.20 [facility] Comment on above: Performed By: #### L 100.0100, L500.2500 ####[facility] [address] [place], [address] ECRCL 30.73 ml/min Low 50-250 [facility] Comment on above: Performed By: #### L 100.0100, L500.2500 ####[facility] [address] [place], [address] GAP 12 Normal 5-15 [facility] Comment on above: Performed By: #### L 100.0100, L500.2500 ####[facility] [address] [place], [address] GFR/1.73 sq M.predicted among non-blacks MDRD (S/P/Bld) [Vol rate/Area] 39 mL/min/{1.73_m2} Low >60 [facility] Comment on above: Result Comment: mL/m in/1.73m2 CKD-EPI Creatinine Equation (2020) Performed By: #### L 100.0100, L500.2500 ####[facility] [address] [place], [address] Glucose [Mass/Vol] 104 mg/dL High 70-[address] [facility] Comment on above: Performed By: #### L 100.0100, L500.2500 ####[facility] [address] [place], [address] Potassium [Moles/Vol] 3.4 mmol/L Normal 3.3-5.1 [facility] Comment on above: Performed By: #### L 100.0100, L500.2500 ####[facility] [address] [place], [address] Sodium [Moles/Vol] 137 mmol/L Normal 133-[address] [facility] Comment on above: Performed By: #### L 100.0100, L500.2500 ####[facility] [address] [place], [address] Urea nitrogen [Mass/Vol] 43 mg/dL High 4-19 [facility] Comment on above: Performed By: #### L 100.0100, L500.2500 ####[facility] [address] [place], [address] BUN Normal 4-19 [facility] Comment on above: Result Comment: Canc elled via OM: Order cancelled - Patient discharged Performed By: #### L 100.0100, L500.2500 ####[facility] [address] [place], [address] BUN/CRE Normal 10-20 [facility] Comment on above: Result Comment: Canc elled via OM: Order cancelled - Patient discharged Performed By: #### L 100.0100, L500.2500 ####[facility] [address] [place], [address] Calcium Normal 7.6-11.0 [facility] Comment on above: Result Comment: Canc elled via OM: Order cancelled - Patient discharged Performed By: #### L 100.0100, L500.2500 ####[facility] [address] [place], [address] CL Normal 98-108 [facility] Comment on above: Result Comment: Canc elled via OM: Order cancelled - Patient discharged Performed By: #### L 100.0100, L500.2500 ####[facility] [address] [place], [address] CO2 Normal 21.0-32.0 [facility] Comment on above: Result Comment: Canc elled via OM: Order cancelled - Patient discharged Performed By: #### L 100.0100, L500.2500 ####[facility] [address] [place], [address] CREAT,SERUM Normal 0.70-1.20 [facility] Comment on above: Result Comment: Canc elled via OM: Order cancelled - Patient discharged Performed By: #### L 100.0100, L500.2500 ####[facility] [address] [place], [address] eGFR Normal >60 [facility] Comment on above: Result Comment: Canc elled via OM: Order cancelled - Patient discharged Performed By: #### L 100.0100, L500.2500 ####[facility] [address] [place], [address] GAP Normal 5-15 [facility] Comment on above: Result Comment: Canc elled via OM: Order cancelled - Patient discharged Performed By: #### L 100.0100, L500.2500 ####[facility] [address] [place], [address] GLU Normal 70-99 [facility] Comment on above: Result Comment: Canc elled via OM: Order cancelled - Patient discharged Performed By: #### L 100.0100, L500.2500 ####[facility] [address] [place], [address] Potassium Normal 3.3-5.1 [facility] Comment on above: Result Comment: Canc elled via OM: Order cancelled - Patient discharged Performed By: #### L 100.0100, L500.2500 ####[facility] [address] [place], [address] Basic Metabolic Profile (BMP) Normal 133-145 [facility] Comment on above: Result Comment: Canc elled via OM: Order cancelled - Patient discharged Performed By: #### L 100.0100, L500.2500 ####[facility] [address] [place], [address] Basophil percentageOrdered B y: Valdez Geovani on 04-18-2025 Basophils/100 WBC (Bld) 0.2 % 0-[address] [facility] Bedside Glucoseon 04-18-2025 FINGERSTICK GLU 217 mg/dL High 74-106 [facility] Comment on above: Result Comment: KODY GEMENT OF PATIENT CARE PER NURSING PROTOCOL Performed By: #### L 501.080 ####[facility] [address] [place], [address] FINGERSTICK GLU 161 mg/dL High 74-106 [facility] Comment on above: Result Comment: KODY GEMENT OF PATIENT CARE PER NURSING PROTOCOL Performed By: #### L 501.080 ####[facility] [address] [place], [address] FINGERSTICK GLU 211 mg/dL High 74-106 [facility] Comment on above: Result Comment: KODY GEMENT OF PATIENT CARE PER NURSING PROTOCOL Performed By: #### L 501.080 ####[facility] [address] [place], [address] FINGERSTICK GLU 99 mg/dL Normal 74-106 [facility] Comment on above: Result Comment: KODY GEMENT OF PATIENT CARE PER NURSING PROTOCOL Performed By: #### L 501.080 ####[facility] [address] [place], [address] CBC W/Diff, Automatedon 08-3 0-2024 Absolute Lymph 0.61 X10 3/uL Low 0.83-4.51 [facility] Comment on above: Performed By: #### L 100.0100, L500.2500 ####[facility] [address] [place], [address] Absolute Neut 7.7 X10 3/uL Normal 2.0-7.7 [facility] Comment on above: Performed By: #### L 100.0100, L500.2500 ####[facility] [address] [place], [address] Basophils/100 WBC (Bld) 0.2 % Normal 0-[address] [facility] Comment on above: Performed By: #### L 100.0100, L500.2500 ####[facility] [address] [place], [address] Eosinophils/100 WBC (Bld) 3.3 % Normal 0-5 [facility] Comment on above: Performed By: #### L 100.0100, L500.2500 ####[facility] [address] [place], [address] Erythrocyte distribution width (RBC) [Ratio] 17.0 % High 11.6-14.6 [facility] Comment on above: Performed By: #### L 100.0100, L500.2500 ####[facility] [address] [place], [address] Hematocrit (Bld) [Volume fraction] 28.6 % Low 40-54 [facility] Comment on above: Performed By: #### L 100.0100, L500.2500 ####[facility] [address] [place], [address] Hemoglobin (Bld) [Mass/Vol] 9.0 g/dL Low 13.0-16.5 [facility] Comment on above: Performed By: #### L 100.0100, L500.2500 ####[facility] [address] [place], [address] IG% 1.400 High 0.0-0.9 [facility] Comment on above: Result Comment: IG% - Immature Granulocytes (promyelocytes, myelocytes andmetamyelocytes) > 1% indicates that a LEFT SHIFT is Present. Performed By: #### L 100.0100, L500.2500 ####[facility] [address] [place], [address] Lymphocytes/100 WBC (Bld) 6.2 % Low 19-41 [facility] Comment on above: Performed By: #### L 100.0100, L500.2500 ####[facility] [address] [place], [address] MCH (RBC) [Entitic mass] 27.0 pg Normal 27.0-32.0 [facility] Comment on above: Performed By: #### L 100.0100, L500.2500 ####[facility] [address] [place], [address] MCHC (RBC) [Mass/Vol] 31.5 g/dL Low 32-36 [facility] Comment on above: Performed By: #### L 100.0100, L500.2500 ####[facility] [address] [place], [address] MCV (RBC) [Entitic vol] 85.9 fL Normal 80-[address] [facility] Comment on above: Performed By: #### L 100.0100, L500.2500 ####[facility] [address] [place], [address] Monocytes/100 WBC (Bld) 11.2 % High 0-[address] [facility] Comment on above: Performed By: #### L 100.0100, L500.2500 ####[facility] [address] [place], [address] Neutrophils/100 WBC (Bld) 77.7 % High 47-70 [facility] Comment on above: Performed By: #### L 100.0100, L500.2500 ####[facility] [address] [place], [address] Nucleated RBC (Bld) [#/Vol] 0 10*3/uL Normal 0-5 [facility] Comment on above: Performed By: #### L 100.0100, L500.2500 ####[facility] [address] [place], [address] Platelet mean volume (Bld) [Entitic vol] 10.5 fL Normal 6.2-12.0 [facility] Comment on above: Performed By: #### L 100.0100, L500.2500 ####[facility] [address] [place], [address] Platelets (Bld) [#/Vol] 186 10*3/uL Normal 150-450 [facility] Comment on above: Performed By: #### L 100.0100, L500.2500 ####[facility] [address] [place], [address] RBC (Bld) [#/Vol] 3.33 10*6/uL Low 4.6-6.2 [facility] Comment on above: Performed By: #### L 100.0100, L500.2500 ####[facility] [address] [place], [address] RDW SD 52.7 fl High 35.1-43.9 [facility] Comment on above: Performed By: #### L 100.0100, L500.2500 ####[facility] [address] [place], [address] WBC (Bld) [#/Vol] 9.9 10*3/uL Normal 4.4-11.[address] [facility] Comment on above: Performed By: #### L 100.0100, L500.2500 ####[facility] [address] [place], [address] Absolute Neut Normal 2.0-7.7 [facility] Comment on above: Result Comment: Canc elled via OM: Order cancelled - Patient discharged Performed By: #### L 100.0100, L500.2500 ####[facility] [address] [place], [address] HCT Normal 40-54 [facility] Comment on above: Result Comment: Canc elled via OM: Order cancelled - Patient discharged Performed By: #### L 100.0100, L500.2500 ####[facility] [address] [place], [address] HGB Normal 13.0-16.5 [facility] Comment on above: Result Comment: Canc elled via OM: Order cancelled - Patient discharged Performed By: #### L 100.0100, L500.2500 ####[facility] [address] [place], [address] MCH Normal 27.0-32.0 [facility] Comment on above: Result Comment: Canc elled via OM: Order cancelled - Patient discharged Performed By: #### L 100.0100, L500.2500 ####[facility] [address] [place], [address] MCHC Normal 32-36 [facility] Comment on above: Result Comment: Canc elled via OM: Order cancelled - Patient discharged Performed By: #### L 100.0100, L500.2500 ####[facility] [address] [place], [address] MCV Normal 80-94 [facility] Comment on above: Result Comment: Canc elled via OM: Order cancelled - Patient discharged Performed By: #### L 100.0100, L500.2500 ####[facility] [address] [place], [address] NEUT% Normal 47-70 [facility] Comment on above: Result Comment: Canc elled via OM: Order cancelled - Patient discharged Performed By: #### L 100.0100, L500.2500 ####[facility] [address] [place], [address] PLT Normal 150-450 [facility] Comment on above: Result Comment: Canc elled via OM: Order cancelled - Patient discharged Performed By: #### L 100.0100, L500.2500 ####[facility] [address] [place], [address] RBC Normal 4.6-6.2 [facility] Comment on above: Result Comment: Canc elled via OM: Order cancelled - Patient discharged Performed By: #### L 100.0100, L500.2500 ####[facility] [address] [place], [address] RDW CV Normal 11.6-14.6 [facility] Comment on above: Result Comment: Canc elled via OM: Order cancelled - Patient discharged Performed By: #### L 100.0100, L500.2500 ####[facility] [address] [place], [address] RDW SD Normal 35.1-43.9 [facility] Comment on above: Result Comment: Canc elled via OM: Order cancelled - Patient discharged Performed By: #### L 100.0100, L500.2500 ####[facility] [address] [place], [address] WBC Normal 4.4-11.0 [facility] Comment on above: Result Comment: Canc elled via OM: Order cancelled - Patient discharged Performed By: #### L 100.0100, L500.2500 ####[facility] [address] [place], [address] Carbon dioxide, total [Moles /volume] in Central venous bloodOrdered By: Valdez Olivo on 04-18-2025 CO2 [Moles/Vol] 36.0 mmol/L High 21.0-32.0 [facility] Chloride assayOrdered By: Aiden Olivo on 04-18-2025 Chloride [Moles/Vol] 89 mmol/L Low 98-108 [facility] Eosinophil percentageOrdered By: Valdez Olivo 04-18-2025 Eosinophils/100 WBC (Bld) 3.3 % 0-5 [facility] Erythrocyte distribution wid th ratioOrdered By: Valdez Olivo on 04-18-2025 Erythrocyte distribution width (RBC) [Ratio] 17.0 % High 11.6-14.6 [facility] Erythrocyte distribution wid th standard deviationOrdered By: Valdez Olivo on 04-18-2025 Erythrocyte distribution width (RBC) [Ratio] 52.7 fl High 35.1-43.9 [facility] Glomerular filtration rate ( GFR) estimation/1.73 sq m using serum, plasma, or whole bOrdered By: Valdez Olivo on 04-18-2025 GFR/1.73 sq M.predicted among non-blacks MDRD (S/P/Bld) [Vol rate/Area] 39 mL/min/{1.73_m2} Low >60 [facility] Hematocrit Auto (Bld) [Volum e fraction]Ordered By: Valdez Olivo on 04-18-2025 Hematocrit (Bld) [Volume fraction] 28.6 % Low 40-54 [facility] Hemoglobin measurementOrdere d By: Valdez Olivo on 04-18-2025 Hemoglobin (Bld) [Mass/Vol] 9.0 g/dL Low 13.0-16.5 [facility] Immature granulocytes/100 WB C Auto (Bld)Ordered By: Valdez Olivo on 04-18-2025 Immature granulocytes/100 WBC (Bld) 1.400 % High 0.0-0.9 [facility] MCV (mean corpuscular volume ) determinationOrdered By: Valdez Olivo on 04-18-2025 MCV (RBC) [Entitic vol] 85.9 fL 80-[address] [facility] Mean corpuscular hemoglobin (MCH) determinationOrdered By: Valdez Olivo on 04-18-2025 MCH (RBC) [Entitic mass] 27.0 pg 27.0-32.0 [facility] Monocyte percentageOrdered B y: Valdez Olivo on 04-18-2025 Monocytes/100 WBC (Bld) 11.2 % High 0-[address] [facility] Neutrophil percentageOrdered By: Valdez Olivo on 04-18-2025 Neutrophils/100 WBC (Bld) 77.7 % High 47-70 [facility] Platelet countOrdered By: Aiden Olivo on 04-18-2025 Platelets (Bld) [#/Vol] 186 10*3/uL 150-450 [facility] Potassium measurement (mass/ volume)Ordered By: Valdez Olivo on 04-18-2025 Potassium (Unsp spec) [Mass/Vol] 3.4 mmol/L 3.3-5.1 [facility] RBC Auto (Bld) [#/Vol]Ordere d By: Valdez Olivo on 04-18-2025 RBC (Bld) [#/Vol] 3.33 10*6/uL Low 4.6-6.2 [facility] Serum creatinine measurement (mass/volume)Ordered By: Valdez Olivo on 04-18-2025 Creatinine [Mass/Vol] 1.73 mg/dL High 0.70-1.20 [facility] Serum glucose measurement (m ass/volume)Ordered By: Valdez Olivo on 04-18-2025 Glucose [Mass/Vol] 104 mg/dL High 70-[address] [facility] Serum or plasma calcium [place] urement (mass/volume)Ordered By: Valdez Olivo on 04-18-2025 Calcium [Mass/Vol] 9.1 mg/dL 7.6-11.[address] [facility] Serum or plasma urea nitroge n measurement (mass/volume)Ordered By: Valdez Olivo on 04-18-2025 Urea nitrogen [Mass/Vol] 43 mg/dL High 4-19 [facility] Sodium levelOrdered By: Valdez Olivo on 04-18-2025 Sodium [Moles/Vol] 137 mmol/L 133-[address] [facility] White blood cell (WBC) count Ordered By: Valdez Olivo on 04-18-2025 WBC (Bld) [#/Vol] 9.9 10*3/uL 4.4-11.[address] [facility] .Auto Diffon 04-17-2025 Basophil, Absolute 0.0 10 3/mcL Normal 0.0-0.3 [facility] Comment on above: Performed By: #### P ROBF, BFPR, PHBF, BFCT, GLUBF, LDBF #### [address] [address] Basophils/100 WBC (Bld) 0.6 % Normal 0.0-2.5 [facility] Comment on above: Performed By: #### P ROBF, BFPR, PHBF, BFCT, GLUBF, LDBF #### [address] [address] Eosinophil, Absolute 0.4 10 3/mcL Normal 0.0-0.7 [facility] Comment on above: Performed By: #### P ROBF, BFPR, PHBF, BFCT, GLUBF, LDBF #### [address] [address] Eosinophils/100 WBC (Bld) 4.2 % Normal 0.0-6.0 [facility] Comment on above: Performed By: #### P ROBF, BFPR, PHBF, BFCT, GLUBF, LDBF #### [address] [address] Lymphocyte, Absolute 0.5 10 3/mcL Low 0.9-4.3 [facility] Comment on above: Performed By: #### P ROBF, BFPR, PHBF, BFCT, GLUBF, LDBF #### [address] [address] Lymphocytes/100 WBC (Bld) 5.5 % Low 20.0-40.0 [facility] Comment on above: Performed By: #### P ROBF, BFPR, PHBF, BFCT, GLUBF, LDBF #### [address] [address] Monocyte, Absolute 0.8 10 3/mcL Normal 0.1-1.4 [facility] Comment on above: Performed By: #### P ROBF, BFPR, PHBF, BFCT, GLUBF, LDBF #### [address] [address] Monocytes/100 WBC (Bld) 9.6 % Normal 2.0-13.0 [facility] Comment on above: Performed By: #### P ROBF, BFPR, PHBF, BFCT, GLUBF, LDBF #### [address] [address] Neutrophils/100 WBC (Bld) 80.1 % High 50.0-75.0 [facility] Comment on above: Performed By: #### P ROBF, BFPR, PHBF, BFCT, GLUBF, LDBF #### [address] [address] .GFRon 04-17-2025 Estimated Glomerular Filtration Rate 43 ml/min/1.73sqm Normal [facility] Comment on above: Result Comment: [...] ROBF, BFPR, PHBF, BFCT, GLUBF, LDBF #### [address] [address] .NEUABSon 04-17-2025 Neutrophil, Absolute 7.1 10 3/mcL Normal 2.3-8.1 [facility] Comment on above: Performed By: #### P ROBF, BFPR, PHBF, BFCT, GLUBF, LDBF #### [place] [address] APTTon 04-17-2025 aPTT Coag (Bld) [Time] 73.1 s High 25.0-35.0 [facility] Comment on above: Result Comment: For Heparin anticoagulation therapy, the recommended therapeutic range is: 54-77 seconds (APTT Correlation with Anti-Xa therapeutic range of 0.3-0.7 units/ml). PLEASE REFERENCE THE PHARMACY PROTOCOL FOR DOSING. Performed By: #### P ROBF, BFPR, PHBF, BFCT, GLUBF, LDBF #### [place] [address] aPTT Coag (Bld) [Time] 68.5 s High 25.0-35.0 [facility] Comment on above: Result Comment: For Heparin anticoagulation therapy, the recommended therapeutic range is: 54-77 seconds (APTT Correlation with Anti-Xa therapeutic range of 0.3-0.7 units/ml). PLEASE REFERENCE THE PHARMACY PROTOCOL FOR DOSING. Performed By: #### P ROBF, BFPR, PHBF, BFCT, GLUBF, LDBF #### [place] [address] BFPRon 04-17-2025 Body Fluid Path Review Normal [facility] Comment on above: Order [...] ROBF, BFPR, PHBF, BFCT, GLUBF, LDBF #### [address] [address] Bedside Glucoseon 04-17-2025 FINGERSTICK GLU 191 mg/dL High 74-106 [facility] Comment on above: Result Comment: KODY STRONG OF PATIENT CARE PER NURSING PROTOCOL Performed By: #### L 501.080 ####[facility] [address] [place], [address] CBCon 04-17-2025 Erythrocyte distribution width (RBC) [Ratio] 18.3 % High 11.5-15.5 [facility] Comment on above: Performed By: #### P ROBF, BFPR, PHBF, BFCT, GLUBF, LDBF #### [place] [address] Hematocrit (Bld) [Volume fraction] 27.4 % Low 40.0-52.0 [facility] Comment on above: Performed By: #### P ROBF, BFPR, PHBF, BFCT, GLUBF, LDBF #### [address] [address] Hgb 9.0 G/dL Low 13.0-17.5 [facility] Comment on above: Performed By: #### P ROBF, BFPR, PHBF, BFCT, GLUBF, LDBF #### [place] [id number] MCH (RBC) [Entitic mass] 27.3 pg Normal 27.0-33.0 [facility] Comment on above: Performed By: #### P ROBF, BFPR, PHBF, BFCT, GLUBF, LDBF #### [place] [id number] MCHC 32.7 G/dL Normal 32.0-36.0 [facility] Comment on above: Performed By: #### P ROBF, BFPR, PHBF, BFCT, GLUBF, LDBF #### [place] [id number] MCV (RBC) [Entitic vol] 83.4 fL Normal 81.0-100.0 [facility] Comment on above: Performed By: #### P ROBF, BFPR, PHBF, BFCT, GLUBF, LDBF #### [place] [address] Platelet 163 10 3/mcL Normal 150-450 [facility] Comment on above: Performed By: #### P ROBF, BFPR, PHBF, BFCT, GLUBF, LDBF #### [place] [address] Platelet mean volume (Bld) [Entitic vol] 8.4 fL Normal 6.4-10.5 [facility] Comment on above: Performed By: #### P ROBF, BFPR, PHBF, BFCT, GLUBF, LDBF #### [place] [address] RBC 3.29 10 6/mcL Low 4.50-6.00 [facility] Comment on above: Performed By: #### P ROBF, BFPR, PHBF, BFCT, GLUBF, LDBF #### [place] [id number] WBC 8.8 10 3/mcL Normal 4.5-10.8 [facility] Comment on above: Performed By: #### P ROBF, BFPR, PHBF, BFCT, GLUBF, LDBF #### [place] [address] CMPon 04-17-2025 Albumin Level 2.7 G/dL Low 3.2-4.8 [facility] Comment on above: Order Comment: vrb- called critical CO2 to KHURRAM Man 04/17/2025 06:09:20 EDT [facility] Performed By: #### P ROBF, BFPR, PHBF, BFCT, GLUBF, LDBF #### [place] [address] Albumin/Globulin [Mass ratio] 0.8 {ratio} Low 0.9-1.6 [facility] Comment on above: Order Comment: vrb- called critical CO2 to KHURRAM Man 04/17/2025 06:09:20 EDT [facility] Performed By: #### P ROBF, BFPR, PHBF, BFCT, GLUBF, LDBF #### [address] [address] ALP [Catalytic activity/Vol] 65 U/L Normal 38-126 [facility] Comment on above: Order Comment: vrb- called critical CO2 to KHURRAM Man 04/17/2025 06:09:20 EDT [facility] Performed By: #### P ROBF, BFPR, PHBF, BFCT, GLUBF, LDBF #### [address] [address] ALT [Catalytic activity/Vol] 21 U/L Normal 12-55 [facility] Comment on above: Order Comment: vrb- called critical CO2 to KHURRAM Man 04/17/2025 06:09:20 EDT [facility] Performed By: #### P ROBF, BFPR, PHBF, BFCT, GLUBF, LDBF #### [place] [id number] AST [Catalytic activity/Vol] 16 U/L Normal 8-34 [facility] Comment on above: Order Comment: vrb- called critical CO2 to KHURRAM Man 04/17/2025 06:09:20 EDT [facility] Performed By: #### P ROBF, BFPR, PHBF, BFCT, GLUBF, LDBF #### [address] [address] Bili Total 0.40 mg/dL Normal 0.20-1.20 [facility] Comment on above: Order Comment: vrb- called critical CO2 to KHURRAM Man 04/17/2025 06:09:20 EDT [facility] Result Comment: Use of this assay is not recommended for patients undergoing treatment with eltrombopag due to the potential for falsely elevated results. Performed By: #### P ROBF, BFPR, PHBF, BFCT, GLUBF, LDBF #### [address] [address] BUN/Creatinine Ratio 25.3 ratio High 10.0-22.0 [facility] Comment on above: Order Comment: vrb- called critical CO2 to RN Mando Man 04/17/2025 06:09:20 EDT [facility] Performed By: #### P ROBF, BFPR, PHBF, BFCT, GLUBF, LDBF #### [address] [address] Calcium [Mass/Vol] 9.4 mg/dL Normal 8.7-10.4 [facility] Comment on above: Order Comment: vrb- called critical CO2 to RN Mando Man 04/17/2025 06:09:20 EDT [facility] Performed By: #### P ROBF, BFPR, PHBF, BFCT, GLUBF, LDBF #### [address] [address] Chloride [Moles/Vol] 88 mmol/L Low 98-110 [facility] Comment on above: Order Comment: vrb- called critical CO2 to RN Mando Man 04/17/2025 06:09:20 EDT [facility] Performed By: #### P ROBF, BFPR, PHBF, BFCT, GLUBF, LDBF #### [address] [address] Creatinine [Mass/Vol] 1.62 mg/dL High 0.60-1.40 [facility] Comment on above: Order Comment: vrb- called critical CO2 to RN Mando Man 04/17/2025 06:09:20 EDT [facility] Result Comment: Test ing performed on [employer] analyzer using enzymatic creatinine methodology. Performed By: #### P ROBF, BFPR, PHBF, BFCT, GLUBF, LDBF #### [address] [address] Globulin 3.5 G/dL Normal 2.5-4.2 [facility] Comment on above: Order Comment: vrb- called critical CO2 to RN Mando Man 04/17/2025 06:09:20 EDT [facility] Performed By: #### P ROBF, BFPR, PHBF, BFCT, GLUBF, LDBF #### [address] [address] Glucose [Mass/Vol] 174 mg/dL High 82-115 [facility] Comment on above: Order Comment: vrb- called critical CO2 to RN Mando Man 04/17/2025 06:09:20 EDT SAS Performed By: #### P ROBF, BFPR, PHBF, BFCT, GLUBF, LDBF #### [address] [address] Potassium [Moles/Vol] 3.7 mmol/L Normal 3.5-5.0 [facility] Comment on above: Order Comment: vrb- called critical CO2 to RN Mando Man 04/17/2025 06:09:20 EDT SAS Performed By: #### P ROBF, BFPR, PHBF, BFCT, GLUBF, LDBF #### [address] [address] Sodium [Moles/Vol] 137 mmol/L Normal 136-145 [facility] Comment on above: Order Comment: vrb- called critical CO2 to RN Mando Man 04/17/2025 06:09:20 EDT SAS Performed By: #### P ROBF, BFPR, PHBF, BFCT, GLUBF, LDBF #### [address] [address] Total Protein 6.2 G/dL Normal 5.7-8.2 [facility] Comment on above: Order Comment: vrb- called critical CO2 to KHURRAM Man 04/17/2025 06:09:20 EDT SAS Performed By: #### P ROBF, BFPR, PHBF, BFCT, GLUBF, LDBF #### [address] [address] Urea nitrogen [Mass/Vol] 41.0 mg/dL High 8.0-22.0 [facility] Comment on above: Order Comment: vrb- called critical CO2 to RN Mando Man 04/17/2025 06:09:20 EDT SAS Performed By: #### P ROBF, BFPR, PHBF, BFCT, GLUBF, LDBF #### [address] [address] CO2 [Moles/Vol] mmol/L Critically abnormal 22-32 [facility] Comment on above: Order Comment: vrb- called critical CO2 to RN Mando Man 04/17/2025 06:09:20 EDT SAS Performed By: #### P ROBF, BFPR, PHBF, BFCT, GLUBF, LDBF #### [address] [address] Electrolyte Balance See Comment Normal 4.0-15.0 [facility] Comment on above: Order Comment: vrb- called critical CO2 to RN Mando Man 04/17/2025 06:09:20 EDT SAS Result Comment: Unab le to calculate this test result accurately. Results used to calculate this test are outside the reportable range. Performed By: #### P ROBF, BFPR, PHBF, BFCT, GLUBF, LDBF #### [place] [address] FT4on 04-17-2025 Free T4 [Mass/Vol] 0.88 ng/dL Low 0.89-1.76 [facility] Comment on above: Order Comment: Order ed by Discern Result Comment: No te - New Reference Range in effect 20 Performed By: #### P ROBF, BFPR, PHBF, BFCT, GLUBF, LDBF #### [place] [address] LABORATORYOrdered By: SYSTEM SYSTEM on 04-17-2025 aPTT [...] above: Interpretive Data: T esting performed on T3 Search analyzer using enzymatic creatinine methodology. Eosinophils (Bld) [...] Glucose Testing Reason Routine (04/17/25 11:08 AM) [facility] Work Phone: Glucose [Mass/Vol] 276 mg/dL High 82 - 115 mg/dL [facility] Work Phone: Blood Glucose Testing Reason Routine (04/17/25 7:57 AM) [facility] Work Phone: Glucose [Mass/Vol] 171 mg/dL High 82 - 115 mg/dL [facility] Work Phone: LABORATORYOrdered By: Lisa Mandel [...] 04-17-2025 Magnesium [Mass/Vol] 1.8 mg/dL Normal 1.6-2.4 [facility] Comment on above: Performed By: #### P ROBF, BFPR, PHBF, BFCT, GLUBF, LDBF #### [place] [address] Non-Airplane Pilot Photogrammetry Cytology Reporton Non-Airplane Pilot Photogrammetry Cytology Report . Pathology Reports Accession: Collected Date/Time: Received Date/Time: Pathologist: [id number] 04/15/2025 10:30 EDT 04/16/2025 08:56 EDT MÓNICA VIEIRA MD Non-Airplane Pilot Photogrammetry Cytology Report CLINICAL INFORMATION: Pleural effusion DIAGNOSTIC CATEGORY: NEGATIVE FOR MALIGNANCY. SPECIMEN: Right pleural fluid GROSS DESCRIPTION: # of Blocks: 1 # of Monolayers: 1 Volume (ml) 950 Color: fresh cloudy red/orange fluid Verified by Pathology Report verified by [facility] Screened by: ANMOL DW Electronically signed by MÓNICA VIEIRA Sign-Out Date: 04/17/2025 14:51 Performing Lab: [address] Pathology Dept Disclaimer If ancillary studies were utilized, the following Laboratory Developed Test (LDT) disclaimer will apply: Under CLIA requirements, [facility] is qualified to perform high complexity testing. For all ancillary stains, positive and negative controls stain appropriately. Performance characteristics of immunohistochemical and chromogenic in-situ hybridization tests have been determined by [facility]. These tests are used for clinical purposes, They should not be regarded as investigational or for research. Normal [facility] TSHRon 04-17-2025 TSH 4.806 mIU/mL High 0.550-4.78 0 [facility] Comment on above: Performed By: #### P ROBF, BFPR, PHBF, BFCT, GLUBF, LDBF #### [place] [id number] XR CHEST 1 VIEWon 04-17-2025 XR CHEST [...] 04/17/2025 8:12:37 AM Ordering Provider: GLORIA Francois [facility] .Auto Diffon 04-16-2025 Basophil, Absolute 0.0 10 3/mcL Normal 0.0-0.3 [facility] Comment on above: Performed By: #### P ROBF, BFPR, PHBF, BFCT, GLUBF, LDBF #### [address] [address] Basophils/100 WBC (Bld) 0.1 % Normal 0.0-2.5 [facility] Comment on above: Performed By: #### P ROBF, BFPR, PHBF, BFCT, GLUBF, LDBF #### [address] [address] Eosinophil, Absolute 0.5 10 3/mcL Normal 0.0-0.7 [facility] Comment on above: Performed By: #### P ROBF, BFPR, PHBF, BFCT, GLUBF, LDBF #### [address] [address] Eosinophils/100 WBC (Bld) 5.3 % Normal 0.0-6.0 [facility] Comment on above: Performed By: #### P ROBF, BFPR, PHBF, BFCT, GLUBF, LDBF #### [address] [address] Lymphocyte, Absolute 0.4 10 3/mcL Low 0.9-4.3 [facility] Comment on above: Performed By: #### P ROBF, BFPR, PHBF, BFCT, GLUBF, LDBF #### [address] [address] Lymphocytes/100 WBC (Bld) 4.8 % Low 20.0-40.0 [facility] Comment on above: Performed By: #### P ROBF, BFPR, PHBF, BFCT, GLUBF, LDBF #### [facility] [address] [place] [address] Monocyte, Absolute 0.7 10 3/mcL Normal 0.1-1.4 [facility] Comment on above: Performed By: #### P ROBF, BFPR, PHBF, BFCT, GLUBF, LDBF #### [facility] [address] [place] [address] Monocytes/100 WBC (Bld) 8.3 % Normal 2.0-13.0 [facility] Comment on above: Performed By: #### P ROBF, BFPR, PHBF, BFCT, GLUBF, LDBF #### [address] [address] Neutrophils/100 WBC (Bld) 81.5 % High 50.0-75.0 [facility] Comment on above: Performed By: #### P ROBF, BFPR, PHBF, BFCT, GLUBF, LDBF #### [facility] [address] [place] [address] .GFRon 04-16-2025 Estimated Glomerular Filtration Rate 48 ml/min/1.73sqm Normal [facility] Comment on above: Result Comment: [...] ROBF, BFPR, PHBF, BFCT, GLUBF, LDBF #### [place] [address] .NEUABSon 04-16-2025 Neutrophil, Absolute 7.3 10 3/mcL Normal 2.3-8.1 [facility] Comment on above: Performed By: #### P ROBF, BFPR, PHBF, BFCT, GLUBF, LDBF #### [place] [address] APTTon 04-16-2025 aPTT Coag (Bld) [Time] 63.1 s High 25.0-35.0 [facility] Comment on above: Result Comment: For Heparin anticoagulation therapy, the recommended therapeutic range is: 54-77 seconds (APTT Correlation with Anti-Xa therapeutic range of 0.3-0.7 units/ml). PLEASE REFERENCE THE PHARMACY PROTOCOL FOR DOSING. Performed By: #### P ROBF, BFPR, PHBF, BFCT, GLUBF, LDBF #### [place] [address] aPTT Coag (Bld) [Time] 55.6 s High 25.0-35.0 [facility] Comment on above: Result Comment: For Heparin anticoagulation therapy, the recommended therapeutic range is: 54-77 seconds (APTT Correlation with Anti-Xa therapeutic range of 0.3-0.7 units/ml). PLEASE REFERENCE THE PHARMACY PROTOCOL FOR DOSING. Performed By: #### A PTT #### [place] [address] CBCon 04-16-2025 Erythrocyte distribution width (RBC) [Ratio] 18.8 % High 11.5-15.5 [facility] Comment on above: Performed By: #### P ROBF, BFPR, PHBF, BFCT, GLUBF, LDBF #### [place] [address] Hematocrit (Bld) [Volume fraction] 27.9 % Low 40.0-52.0 [facility] Comment on above: Performed By: #### P ROBF, BFPR, PHBF, BFCT, GLUBF, LDBF #### [place] [address] Hgb 9.1 G/dL Low 13.0-17.5 [facility] Comment on above: Performed By: #### P ROBF, BFPR, PHBF, BFCT, GLUBF, LDBF #### [place] [address] MCH (RBC) [Entitic mass] 27.8 pg Normal 27.0-33.0 [facility] Comment on above: Performed By: #### P ROBF, BFPR, PHBF, BFCT, GLUBF, LDBF #### [place] [address] MCHC 32.8 G/dL Normal 32.0-36.0 [facility] Comment on above: Performed By: #### P ROBF, BFPR, PHBF, BFCT, GLUBF, LDBF #### [place] [address] MCV (RBC) [Entitic vol] 84.7 fL Normal 81.0-100.0 [facility] Comment on above: Performed By: #### P ROBF, BFPR, PHBF, BFCT, GLUBF, LDBF #### [place] [address] Platelet 158 10 3/mcL Normal 150-450 [facility] Comment on above: Performed By: #### P ROBF, BFPR, PHBF, BFCT, GLUBF, LDBF #### [place] [address] Platelet mean volume (Bld) [Entitic vol] 8.7 fL Normal 6.4-10.5 [facility] Comment on above: Performed By: #### P ROBF, BFPR, PHBF, BFCT, GLUBF, LDBF #### [place] [address] RBC 3.29 10 6/mcL Low 4.50-6.00 [facility] Comment on above: Performed By: #### P ROBF, BFPR, PHBF, BFCT, GLUBF, LDBF #### [place] [id number] WBC 9.0 10 3/mcL Normal 4.5-10.8 [facility] Comment on above: Performed By: #### P ROBF, BFPR, PHBF, BFCT, GLUBF, LDBF #### [address] [address] CMPon 04-16-2025 Albumin Level 2.6 G/dL Low 3.2-4.8 [facility] Comment on above: Performed By: #### P ROBF, BFPR, PHBF, BFCT, GLUBF, LDBF #### [place] [address] Albumin/Globulin [Mass ratio] 0.8 {ratio} Low 0.9-1.6 [facility] Comment on above: Performed By: #### P ROBF, BFPR, PHBF, BFCT, GLUBF, LDBF #### [address] [address] ALP [Catalytic activity/Vol] 59 U/L Normal 38-126 [facility] Comment on above: Performed By: #### P ROBF, BFPR, PHBF, BFCT, GLUBF, LDBF #### [address] [address] ALT [Catalytic activity/Vol] 23 U/L Normal 12-55 [facility] Comment on above: Performed By: #### P ROBF, BFPR, PHBF, BFCT, GLUBF, LDBF #### [address] [address] AST [Catalytic activity/Vol] 17 U/L Normal 8-34 [facility] Comment on above: Performed By: #### P ROBF, BFPR, PHBF, BFCT, GLUBF, LDBF #### [place] [id number] Bili Total 0.50 mg/dL Normal 0.20-1.20 [facility] Comment on above: Result Comment: Use of this assay is not recommended for patients undergoing treatment with eltrombopag due to the potential for falsely elevated results. Performed By: #### P ROBF, BFPR, PHBF, BFCT, GLUBF, LDBF #### [address] [address] BUN/Creatinine Ratio 22.6 ratio High 10.0-22.0 [facility] Comment on above: Performed By: #### P ROBF, BFPR, PHBF, BFCT, GLUBF, LDBF #### [address] [address] Calcium [Mass/Vol] 9.2 mg/dL Normal 8.7-10.4 [facility] Comment on above: Performed By: #### P ROBF, BFPR, PHBF, BFCT, GLUBF, LDBF #### [address] [address] Chloride [Moles/Vol] 91 mmol/L Low 98-110 [facility] Comment on above: Performed By: #### P ROBF, BFPR, PHBF, BFCT, GLUBF, LDBF #### [address] [address] CO2 [Moles/Vol] 38 mmol/L High 22-32 [facility] Comment on above: Performed By: #### P ROBF, BFPR, PHBF, BFCT, GLUBF, LDBF #### [address] [address] Creatinine [Mass/Vol] 1.46 mg/dL High 0.60-1.40 [facility] Comment on above: Result Comment: Test ing performed on T3 Search analyzer using enzymatic creatinine methodology. Performed By: #### P ROBF, BFPR, PHBF, BFCT, GLUBF, LDBF #### [address] [address] Electrolyte Balance 9.0 mEq/L Normal 4.0-15.0 [facility] Comment on above: Performed By: #### P ROBF, BFPR, PHBF, BFCT, GLUBF, LDBF #### [address] [address] Globulin 3.2 G/dL Normal 2.5-4.2 [facility] Comment on above: Performed By: #### P ROBF, BFPR, PHBF, BFCT, GLUBF, LDBF #### [address] [address] Glucose [Mass/Vol] 144 mg/dL High 82-115 [facility] Comment on above: Performed By: #### P ROBF, BFPR, PHBF, BFCT, GLUBF, LDBF #### [address] [address] Potassium [Moles/Vol] 3.7 mmol/L Normal 3.5-5.0 [facility] Comment on above: Performed By: #### P ROBF, BFPR, PHBF, BFCT, GLUBF, LDBF #### [place] [id number] Sodium [Moles/Vol] 138 mmol/L Normal 136-145 [facility] Comment on above: Performed By: #### P ROBF, BFPR, PHBF, BFCT, GLUBF, LDBF #### [place] [address] Total Protein 5.8 G/dL Normal 5.7-8.2 [facility] Comment on above: Performed By: #### P ROBF, BFPR, PHBF, BFCT, GLUBF, LDBF #### [place] [address] Urea nitrogen [Mass/Vol] 33.0 mg/dL High 8.0-22.0 [facility] Comment on above: Performed By: #### P ROBF, BFPR, PHBF, BFCT, GLUBF, LDBF #### [address] [address] LABORATORYOrdered By: Mónica Brown on 04-16-2025 Blood Glucose Testing Reason Routine (04/16/25 9:15 PM) [facility] Work Phone: Glucose [Mass/Vol] 207 mg/dL High 82 - 115 mg/dL [facility] Work Phone: LABORATORYOrdered By: SYSTEM SYSTEM [...] above: Interpretive Data: T esting performed on T3 Search analyzer using enzymatic creatinine methodology. Electrolyte Balance [...] 04-16-2025 Magnesium [Mass/Vol] 1.8 mg/dL Normal 1.6-2.4 [facility] Comment on above: Performed By: #### P ROBF, BFPR, PHBF, BFCT, GLUBF, LDBF #### [address] [address] .Auto Diffon 04-15-2025 Basophil, Absolute 0.0 10 3/mcL Normal 0.0-0.3 [facility] Comment on above: Performed By: #### P ROBF, BFPR, PHBF, BFCT, GLUBF, LDBF #### [address] [address] Basophils/100 WBC (Bld) 0.1 % Normal 0.0-2.5 [facility] Comment on above: Performed By: #### P ROBF, BFPR, PHBF, BFCT, GLUBF, LDBF #### [address] [address] Eosinophil, Absolute 0.4 10 3/mcL Normal 0.0-0.7 [facility] Comment on above: Performed By: #### P ROBF, BFPR, PHBF, BFCT, GLUBF, LDBF #### [address] [address] Eosinophils/100 WBC (Bld) 4.1 % Normal 0.0-6.0 [facility] Comment on above: Performed By: #### P ROBF, BFPR, PHBF, BFCT, GLUBF, LDBF #### [address] [address] Lymphocyte, Absolute 0.4 10 3/mcL Low 0.9-4.3 [facility] Comment on above: Performed By: #### P ROBF, BFPR, PHBF, BFCT, GLUBF, LDBF #### [address] [address] Lymphocytes/100 WBC (Bld) 4.5 % Low 20.0-40.0 [facility] Comment on above: Performed By: #### P ROBF, BFPR, PHBF, BFCT, GLUBF, LDBF #### [address] [address] Monocyte, Absolute 0.8 10 3/mcL Normal 0.1-1.4 [facility] Comment on above: Performed By: #### P ROBF, BFPR, PHBF, BFCT, GLUBF, LDBF #### [address] [address] Monocytes/100 WBC (Bld) 8.5 % Normal 2.0-13.0 [facility] Comment on above: Performed By: #### P ROBF, BFPR, PHBF, BFCT, GLUBF, LDBF #### [address] [address] Neutrophils/100 WBC (Bld) 82.8 % High 50.0-75.0 [facility] Comment on above: Performed By: #### P ROBF, BFPR, PHBF, BFCT, GLUBF, LDBF #### [place] [address] .GFRon 04-15-2025 Estimated Glomerular Filtration Rate 50 ml/min/1.73sqm Normal [facility] Comment on above: Result Comment: [...] ROBF, BFPR, PHBF, BFCT, GLUBF, LDBF #### [place] [address] .NEUABSon 04-15-2025 Neutrophil, Absolute 7.8 10 3/mcL Normal 2.3-8.1 [facility] Comment on above: Performed By: #### P ROBF, BFPR, PHBF, BFCT, GLUBF, LDBF #### [place] [address] APTTon 04-15-2025 aPTT Coag (Bld) [Time] 55.0 s High 25.0-35.0 [facility] Comment on above: Result Comment: For Heparin anticoagulation therapy, the recommended therapeutic range is: 54-77 seconds (APTT Correlation with Anti-Xa therapeutic range of 0.3-0.7 units/ml). PLEASE REFERENCE THE PHARMACY PROTOCOL FOR DOSING. Performed By: #### P ROBF, BFPR, PHBF, BFCT, GLUBF, LDBF #### [place] [address] BFCTon 04-15-2025 Cells Counted BF 100 Normal [facility] Comment on above: Performed By: #### P ROBF, BFPR, PHBF, BFCT, GLUBF, LDBF #### [address] [address] Lymphocytes/100 WBC (Bld) 47 % Normal [facility] Comment on above: Performed By: #### P ROBF, BFPR, PHBF, BFCT, GLUBF, LDBF #### [address] [address] Mesothelial Cell % BF 4 % Normal [facility] Comment on above: Performed By: #### P ROBF, BFPR, PHBF, BFCT, GLUBF, LDBF #### [address] [address] Mononuclear cell % BF 1 % Normal [facility] Comment on above: Performed By: #### P ROBF, BFPR, PHBF, BFCT, GLUBF, LDBF #### [address] [address] Neutrophils/100 WBC (Bld) 48 % Normal [facility] Comment on above: Performed By: #### P ROBF, BFPR, PHBF, BFCT, GLUBF, LDBF #### [address] [address] Total Nucleated Cells 172 /mm3 Normal [facility] Comment on above: Performed By: #### P ROBF, BFPR, PHBF, BFCT, GLUBF, LDBF #### [address] [address] Body Fluid Source Pleural fluid Normal [facility] Comment on above: Result Comment: Refe rence ranges have not been established for this body fluid. The test results must be integrated into the clinical context for interpretation. Performed By: #### P ROBF, BFPR, PHBF, BFCT, GLUBF, LDBF #### [address] [address] BMPon 04-15-2025 BUN/Creatinine Ratio 30.8 ratio High 10.0-22.0 [facility] Comment on above: Performed By: #### P ROBF, BFPR, PHBF, BFCT, GLUBF, LDBF #### [address] [address] Calcium [Mass/Vol] 8.7 mg/dL Normal 8.7-10.4 [facility] Comment on above: Performed By: #### P ROBF, BFPR, PHBF, BFCT, GLUBF, LDBF #### [address] [address] Chloride [Moles/Vol] 94 mmol/L Low 98-110 [facility] Comment on above: Performed By: #### P ROBF, BFPR, PHBF, BFCT, GLUBF, LDBF #### [address] [address] CO2 [Moles/Vol] 39 mmol/L High 22-32 [facility] Comment on above: Performed By: #### P ROBF, BFPR, PHBF, BFCT, GLUBF, LDBF #### [address] [address] Creatinine [Mass/Vol] 1.43 mg/dL High 0.60-1.40 [facility] Comment on above: Result Comment: Test ing performed on T3 Search analyzer using enzymatic creatinine methodology. Performed By: #### P ROBF, BFPR, PHBF, BFCT, GLUBF, LDBF #### [address] [address] Electrolyte Balance 7.0 mEq/L Normal 4.0-15.0 [facility] Comment on above: Performed By: #### P ROBF, BFPR, PHBF, BFCT, GLUBF, LDBF #### [address] [address] Glucose [Mass/Vol] 134 mg/dL High 82-115 [facility] Comment on above: Performed By: #### P ROBF, BFPR, PHBF, BFCT, GLUBF, LDBF #### [address] [address] Potassium [Moles/Vol] 3.8 mmol/L Normal 3.5-5.0 [facility] Comment on above: Performed By: #### P ROBF, BFPR, PHBF, BFCT, GLUBF, LDBF #### [place] [address] Sodium [Moles/Vol] 140 mmol/L Normal 136-145 [facility] Comment on above: Performed By: #### P ROBF, BFPR, PHBF, BFCT, GLUBF, LDBF #### [place] [id number] Urea nitrogen [Mass/Vol] 44.0 mg/dL High 8.0-22.0 [facility] Comment on above: Performed By: #### P ROBF, BFPR, PHBF, BFCT, GLUBF, LDBF #### [place] [id number] CBCon 04-15-2025 Erythrocyte distribution width (RBC) [Ratio] 17.9 % High 11.5-15.5 [facility] Comment on above: Performed By: #### P ROBF, BFPR, PHBF, BFCT, GLUBF, LDBF #### [place] [address] Hematocrit (Bld) [Volume fraction] 26.7 % Low 40.0-52.0 [facility] Comment on above: Performed By: #### P ROBF, BFPR, PHBF, BFCT, GLUBF, LDBF #### [place] [address] Hgb 8.6 G/dL Low 13.0-17.5 [facility] Comment on above: Performed By: #### P ROBF, BFPR, PHBF, BFCT, GLUBF, LDBF #### [place] [id number] MCH (RBC) [Entitic mass] 26.9 pg Low 27.0-33.0 [facility] Comment on above: Performed By: #### P ROBF, BFPR, PHBF, BFCT, GLUBF, LDBF #### [place] [address] MCHC 32.1 G/dL Normal 32.0-36.0 [facility] Comment on above: Performed By: #### P ROBF, BFPR, PHBF, BFCT, GLUBF, LDBF #### [place] [address] MCV (RBC) [Entitic vol] 83.9 fL Normal 81.0-100.0 [facility] Comment on above: Performed By: #### P ROBF, BFPR, PHBF, BFCT, GLUBF, LDBF #### [place] [address] Platelet 169 10 3/mcL Normal 150-450 [facility] Comment on above: Performed By: #### P ROBF, BFPR, PHBF, BFCT, GLUBF, LDBF #### [place] [address] Platelet mean volume (Bld) [Entitic vol] 8.2 fL Normal 6.4-10.5 [facility] Comment on above: Performed By: #### P ROBF, BFPR, PHBF, BFCT, GLUBF, LDBF #### [place] [address] RBC 3.18 10 6/mcL Low 4.50-6.00 [facility] Comment on above: Performed By: #### P ROBF, BFPR, PHBF, BFCT, GLUBF, LDBF #### [place] [address] WBC 9.4 10 3/mcL Normal 4.5-10.8 [facility] Comment on above: Performed By: #### P ROBF, BFPR, PHBF, BFCT, GLUBF, LDBF #### [place] [address] GLUBFon 04-15-2025 Glucose Body Fluid Spec Type Pleural fluid Normal [facility] Comment on above: Result Comment: The reference interval(s) and other method performance specifications have not been established for this body fluid. The test result must be integrated into the clinical content for interpretation. Performed By: #### P ROBF, BFPR, PHBF, BFCT, GLUBF, LDBF #### [place] [address] Glucose BF 191.0 mg/dL Normal [facility] Comment on above: Performed By: #### P ROBF, BFPR, PHBF, BFCT, GLUBF, LDBF #### [place] [id number] HFPon 04-15-2025 Bili Indirect 0.2 mg/dL Normal 0.1-10.0 [facility] Comment on above: Performed By: #### T MADHAVI #### [place] [address] Albumin Level 2.9 G/dL Low 3.2-4.8 [facility] Comment on above: Performed By: #### T MADHAVI #### [place] [id number] Albumin/Globulin [Mass ratio] 0.8 {ratio} Low 0.9-1.6 [facility] Comment on above: Performed By: #### T MADHAVI #### [place] [address] ALP [Catalytic activity/Vol] 65 U/L Normal 38-126 [facility] Comment on above: Performed By: #### T MADHAVI #### [place] [address] ALT [Catalytic activity/Vol] 29 U/L Normal 12-55 [facility] Comment on above: Performed By: #### T MADHAVI #### [place] [id number] AST [Catalytic activity/Vol] 23 U/L Normal 8-34 [facility] Comment on above: Performed By: #### T MADHAVI #### [place] [address] Bili Direct 0.2 mg/dL Normal 0.0-0.4 [facility] Comment on above: Result Comment: Use of this assay is not recommended for patients undergoing treatment with eltrombopag due to the potential for falsely elevated results. Performed By: #### T MADHAVI #### [place] [address] Bili Total 0.40 mg/dL Normal 0.20-1.20 [facility] Comment on above: Result Comment: Use of this assay is not recommended for patients undergoing treatment with eltrombopag due to the potential for falsely elevated results. Performed By: #### T MADHAVI #### [place] [id number] Globulin 3.6 G/dL Normal 2.5-4.2 [facility] Comment on above: Performed By: #### T MADHAVI #### [place] [address] Total Protein 6.5 G/dL Normal 5.7-8.2 [facility] Comment on above: Performed By: #### T MADHAVI #### [place] [address] LABORATORYOrdered By: SYSTEM SYSTEM on 04-15-2025 Albumin [...] above: Interpretive Data: T esting performed on [employer] analyzer using enzymatic creatinine methodology. Electrolyte Balance [...] Body Fluid Spec Type Pleural fluid Normal [facility] Comment on above: Result Comment: The reference interval(s) and other method performance specifications have not been established for this body fluid. The test result must be integrated into the clinical content for interpretation. . Performed By: #### P ROBF, BFPR, PHBF, BFCT, GLUBF, LDBF #### [address] [address] LDH BF 137.0 U/L Normal [facility] Comment on above: Performed By: #### P ROBF, BFPR, PHBF, BFCT, GLUBF, LDBF #### [address] [address] LDHon 04-15-2025 LDH 216 U/L Normal 120-246 [facility] Comment on above: Performed By: #### T ROPHS #### [address] [address] MGon 04-15-2025 Magnesium [Mass/Vol] 1.8 mg/dL Normal 1.6-2.4 [facility] [facility] Comment on above: Performed By: #### P ROBF, BFPR, PHBF, BFCT, GLUBF, LDBF #### [address] [address] No Panel Informationon 04-15 AFS Acid Fast Smear from Concentrated Specimen: Negative [facility] Work Phone: Culture Body Fluid Culture has been rec eived in lab and is no growth to date. Routine cultures are held for 5 days. [facility] Work Phone: FUNSM No fungal elements observed by calcofluor white stain. [facility] Work Phone: GS Sedimented 1+ Polymorphonuclear cells 1+ Mononuclear cells No organisms seen. [facility] Work Phone: Non-Airplane Pilot Photogrammetry Cytology Reporton Non-Airplane Pilot Photogrammetry Cytology Report Event Display: N G Specimen Right pleural fluid MÓNICA VIEIRA MD:VERIFY; Authored Date: [facility] Work Phone: Non-Airplane Pilot Photogrammetry Cytology Report Event Display: N G Signature Pathology Report verified by [facility] Screened by: ANMOL GARCIA Electronically signed by MÓNICA VIEIRA Sign-Out Date: 04/17/2025 14:51 Performing Lab: [facility], [address] [place] [address] Pathology Dept MÓNICA VIEIRA MD:VERIFY; Authored Date: [facility] Work Phone: Non-Airplane Pilot Photogrammetry Cytology Report Event Display: N G Clin Info Pleural effusion MÓNICA VIEIRA MD:VERIFY; Authored Date: [facility] Work Phone: Non-Airplane Pilot Photogrammetry Cytology Report Event Display: N G Diagnostic Category Interp NEGATIVE FOR MALIGNANCY. MÓNICA VIEIRA MD:VERIFY; Authored Date: [facility] Work Phone: Non-Airplane Pilot Photogrammetry Cytology Report Event Display: N G Gross # of Blocks: 1 # of Monolayers: 1 Volume (ml) 950 Color: fresh cloudy red/orange fluid MÓNICA VIEIRA MD:VERIFY; Authored Date: [facility] Work Phone: Non-Airplane Pilot Photogrammetry Cytology Report Event Display: N G Disclaimer If ancillary studies were utilized, the following Laboratory Developed Test (LDT) disclaimer will apply: Under CLIA requirements, [facility] is qualified to perform high complexity testing. For all ancillary stains, positive and negative controls stain appropriately. Performance characteristics of immunohistochemical and chromogenic in-situ hybridization tests have been determined by [facility]. These tests are used for clinical purposes, They should not be regarded as investigational or for research. MÓNICA VIEIRA MD:VERIFY; Authored Date: [id number] [facility] Work Phone: PBon 04-15-2025 Natriuretic peptide B (Bld) [Mass/Vol] 4360 pg/mL High 0-1800 [facility] Comment on above: Performed By: #### P ROBF, BFPR, PHBF, BFCT, GLUBF, LDBF #### [place] [address] PHBFon 04-15-2025 pH BF 7.4 Normal [facility] Comment on above: Result Comment: domingo becerril Performed By: #### P ROBF, BFPR, PHBF, BFCT, GLUBF, LDBF #### [place] [address] pH BF Spec Type Pleural fluid Normal [facility] Comment on above: Result Comment: The reference interval(s) and other method performance specifications have not been established for this body fluid. The test result must be integrated into the clinical content for interpretation. Performed By: #### P ROBF, BFPR, PHBF, BFCT, GLUBF, LDBF #### [place] [address] PROBFon 04-15-2025 Protein BF Type Pleural fluid Normal [facility] Comment on above: Result Comment: The reference interval(s) and other method performance specifications have not been established for this body fluid. The test result must be integrated into the clinical content for interpretation. Performed By: #### P ROBF, BFPR, PHBF, BFCT, GLUBF, LDBF #### [place] [address] Protein BF <2.0 Normal [facility] Comment on above: Performed By: #### P ROBF, BFPR, PHBF, BFCT, GLUBF, LDBF #### [place] [id number] [place] [address] XR CHEST 1 VIEWon 04-15-2025 XR CHEST [...] 11:43:46 AM Ordering Provider: OLAMIDE GONZALEZ [facility] XR CHEST 1 VIEW ORIGINAL EXAMINATION: ONE [...] 04/15/2025 7:22:03 AM Ordering Provider: GLORIA DAVIS [facility] .Auto Diffon 04-14-2025 Basophil, Absolute 0.0 10 3/mcL Normal 0.0-0.3 [facility] Comment on above: Performed By: #### P ROBF, BFPR, PHBF, BFCT, GLUBF, LDBF #### [address] [address] Basophils/100 WBC (Bld) 0.2 % Normal 0.0-2.5 [facility] Comment on above: Performed By: #### P ROBF, BFPR, PHBF, BFCT, GLUBF, LDBF #### [address] [address] Eosinophil, Absolute 0.2 10 3/mcL Normal 0.0-0.7 [facility] Comment on above: Performed By: #### P ROBF, BFPR, PHBF, BFCT, GLUBF, LDBF #### [address] [address] Eosinophils/100 WBC (Bld) 1.9 % Normal 0.0-6.0 [facility] Comment on above: Performed By: #### P ROBF, BFPR, PHBF, BFCT, GLUBF, LDBF #### [address] [address] Lymphocyte, Absolute 0.4 10 3/mcL Low 0.9-4.3 [facility] Comment on above: Performed By: #### P ROBF, BFPR, PHBF, BFCT, GLUBF, LDBF #### [address] [address] Lymphocytes/100 WBC (Bld) 4.0 % Low 20.0-40.0 [facility] Comment on above: Performed By: #### P ROBF, BFPR, PHBF, BFCT, GLUBF, LDBF #### [address] [address] Monocyte, Absolute 0.9 10 3/mcL Normal 0.1-1.4 [facility] Comment on above: Performed By: #### P ROBF, BFPR, PHBF, BFCT, GLUBF, LDBF #### [address] [address] Monocytes/100 WBC (Bld) 8.3 % Normal 2.0-13.0 [facility] Comment on above: Performed By: #### P ROBF, BFPR, PHBF, BFCT, GLUBF, LDBF #### [address] [address] Neutrophils/100 WBC (Bld) 85.6 % High 50.0-75.0 [facility] Comment on above: Performed By: #### P ROBF, BFPR, PHBF, BFCT, GLUBF, LDBF #### [place] [address] .GFRon 04-14-2025 Estimated Glomerular Filtration Rate 49 ml/min/1.73sqm Normal [facility] Comment on above: Result Comment: [...] results. Performed By: #### T ROPHS #### [place] [address] .NEUABSon 04-14-2025 Neutrophil, Absolute 9.2 10 3/mcL High 2.3-8.1 [facility] Comment on above: Performed By: #### P ROBF, BFPR, PHBF, BFCT, GLUBF, LDBF #### [place] [address] APTTon 04-14-2025 aPTT Coag (Bld) [Time] 28.2 s Normal 25.0-35.0 [facility] Comment on above: Result Comment: For Heparin anticoagulation therapy, the recommended therapeutic range is: 54-77 seconds (APTT Correlation with Anti-Xa therapeutic range of 0.3-0.7 units/ml). PLEASE REFERENCE THE PHARMACY PROTOCOL FOR DOSING. Performed By: #### A PTT, PRO #### [place] [address] BMPon 04-14-2025 BUN/Creatinine Ratio 32.4 ratio High 10.0-22.0 [facility] Comment on above: Performed By: #### T MADHAVI #### [address] [address] Calcium [Mass/Vol] 8.6 mg/dL Low 8.7-10.4 [facility] Comment on above: Performed By: #### T MADHAVI #### [address] [address] Chloride [Moles/Vol] 98 mmol/L Normal 98-110 [facility] Comment on above: Performed By: #### T MADHAVI #### [address] [address] CO2 [Moles/Vol] 40 mmol/L Critically abnormal 22-32 [facility] Comment on above: Performed By: #### T MADHAVI #### [address] [address] Creatinine [Mass/Vol] 1.45 mg/dL High 0.60-1.40 [facility] Comment on above: Result Comment: Test ing performed on [employer] analyzer using enzymatic creatinine methodology. Performed By: #### T MADHAVI #### [address] [address] Electrolyte Balance 5.0 mEq/L Normal 4.0-15.0 [facility] Comment on above: Performed By: #### T MADHAVI #### [address] [address] Glucose [Mass/Vol] 88 mg/dL Normal 82-115 [facility] Comment on above: Performed By: #### T MADHAVI #### [address] [address] Potassium [Moles/Vol] 4.3 mmol/L Normal 3.5-5.0 [facility] Comment on above: Performed By: #### T MADHAVI #### [address] [address] Sodium [Moles/Vol] 143 mmol/L Normal 136-145 [facility] Comment on above: Performed By: #### T MADHAVI #### [address] [address] Urea nitrogen [Mass/Vol] 47.0 mg/dL High 8.0-22.0 [facility] Comment on above: Performed By: #### T ROPHS #### [place] [address] CBCon 04-14-2025 Erythrocyte distribution width (RBC) [Ratio] 18.4 % High 11.5-15.5 [facility] Comment on above: Performed By: #### P ROBF, BFPR, PHBF, BFCT, GLUBF, LDBF #### [place] [address] Hematocrit (Bld) [Volume fraction] 29.0 % Low 40.0-52.0 [facility] Comment on above: Performed By: #### P ROBF, BFPR, PHBF, BFCT, GLUBF, LDBF #### [place] [address] Hgb 9.0 G/dL Low 13.0-17.5 [facility] Comment on above: Performed By: #### P ROBF, BFPR, PHBF, BFCT, GLUBF, LDBF #### [place] [address] MCH (RBC) [Entitic mass] 26.3 pg Low 27.0-33.0 [facility] Comment on above: Performed By: #### P ROBF, BFPR, PHBF, BFCT, GLUBF, LDBF #### [place] [address] MCHC 31.0 G/dL Low 32.0-36.0 [facility] Comment on above: Performed By: #### P ROBF, BFPR, PHBF, BFCT, GLUBF, LDBF #### [place] [address] MCV (RBC) [Entitic vol] 84.9 fL Normal 81.0-100.0 [facility] Comment on above: Performed By: #### P ROBF, BFPR, PHBF, BFCT, GLUBF, LDBF #### [place] [address] Platelet 165 10 3/mcL Normal 150-450 [facility] Comment on above: Performed By: #### P ROBF, BFPR, PHBF, BFCT, GLUBF, LDBF #### [facility] [address] [place] [address] Platelet mean volume (Bld) [Entitic vol] 7.8 fL Normal 6.4-10.5 [facility] Comment on above: Performed By: #### P ROBF, BFPR, PHBF, BFCT, GLUBF, LDBF #### [place] [id number] [place] [address] RBC 3.41 10 6/mcL Low 4.50-6.00 [facility] Comment on above: Performed By: #### P ROBF, BFPR, PHBF, BFCT, GLUBF, LDBF #### [facility] [address] [place] [address] WBC 10.8 10 3/mcL Normal 4.5-10.8 [facility] Comment on above: Performed By: #### P ROBF, BFPR, PHBF, BFCT, GLUBF, LDBF #### [address] [address] LABORATORYOrdered By: SYSTEM SYSTEM on 04-14-2025 PT [...] Comment on above: Interpretive Data: T mike [employer] (CHEST, 1992, 102:312S-25S) [...] ng/L Male: 0-54 ng/L Testing performed on [employer] analyzer using direct chemiluminescent technology. No Panel Informationon 04-14 Legionella Urine Ag Presumptive negative for L. pneumophila serogroup 1 antigen in urine, suggesting no recent or current infection. Legionnaire's disease cannot be ruled out since other serogroups and species may also cause disease. [facility] Work Phone: Streptococcus Pneumoniae Urine Antig Presumptive negative for pneumococcal pneumonia, suggesting no current or recent pneumococcal infection. Infection due to Strep pneumoniae cannot be ruled out since the antigen present in the sample may be below the detection limit of the test. [facility] Work Phone: Comment on above: This test has not be en evaluated on patients taking antibiotics for greater than 24 hours or on patients who have recently completed an antibiotic regimen. The accuracy of this test has not been proven in young children. PROon 04-14-2025 INR Coag (PPP) [Relative time] 1.2 {INR} Normal [facility] Comment on above: Result Comment: [employer] (CHEST, 1992, 102:312S-25S) recommended therapeutic range for oral anticoagulant therapy is: LOW RISK: Prophylaxis of venous thrombosis INR: 2.0-3.0 Treatment of pulmonary embolism 2.0-3.0 Prevention of systemic embolism 2.0-3.0 HIGH RISK: Mechanical prosthetic valves 2.5-3.5 Performed By: #### A PTT, PRO #### [address] [address] PT Coag (PPP) [Time] 13.9 s Normal 9.0-14.4 [facility] Comment on above: Result Comment: Effe ctive 03/03/08, Protime results may be affected by some antibiotics (i.e. Ciprofloxacin, Azithromycin, Bactrim) which may potentiate the action of oral anticoagulants, with further increases in Protime/INR. Performed By: #### A PTT, PRO #### [facility] [address] [place] [address] TROPHSon 04-14-2025 High Sensitivity Troponin I 160 ng/L High 0-54 [facility] Comment on above: Result Comment: High Sensitive Troponin I Reference Ranges: Female: 0-34 ng/L Male: 0-54 ng/L Testing performed on [employer] analyzer using direct chemiluminescent technology. Performed By: #### T PAUL #### [address] [address] XR CHEST 1 VIEWon 04-14-2025 XR CHEST [...] 04/14/2025 7:00:29 AM Ordering Provider: COLLEEN Francois [facility] .Auto Diffon 04-13-2025 Basophil, Absolute 0.0 10 3/mcL Normal 0.0-0.3 [facility] Comment on above: Performed By: #### P ROBF, BFPR, PHBF, BFCT, GLUBF, LDBF #### [address] [address] Basophils/100 WBC (Bld) 0.0 % Normal 0.0-2.5 [facility] Comment on above: Performed By: #### P ROBF, BFPR, PHBF, BFCT, GLUBF, LDBF #### [address] [address] Eosinophil, Absolute 0.0 10 3/mcL Normal 0.0-0.7 [facility] Comment on above: Performed By: #### P ROBF, BFPR, PHBF, BFCT, GLUBF, LDBF #### [address] [address] Eosinophils/100 WBC (Bld) 0.1 % Normal 0.0-6.0 [facility] Comment on above: Performed By: #### P ROBF, BFPR, PHBF, BFCT, GLUBF, LDBF #### [address] [address] Lymphocyte, Absolute 0.3 10 3/mcL Low 0.9-4.3 [facility] Comment on above: Performed By: #### P ROBF, BFPR, PHBF, BFCT, GLUBF, LDBF #### [address] [address] Lymphocytes/100 WBC (Bld) 3.0 % Low 20.0-40.0 [facility] Comment on above: Performed By: #### P ROBF, BFPR, PHBF, BFCT, GLUBF, LDBF #### [address] [address] Monocyte, Absolute 0.7 10 3/mcL Normal 0.1-1.4 [facility] Comment on above: Performed By: #### P ROBF, BFPR, PHBF, BFCT, GLUBF, LDBF #### [address] [address] Monocytes/100 WBC (Bld) 6.3 % Normal 2.0-13.0 [facility] Comment on above: Performed By: #### P ROBF, BFPR, PHBF, BFCT, GLUBF, LDBF #### [address] [address] Neutrophils/100 WBC (Bld) 90.6 % High 50.0-75.0 [facility] Comment on above: Performed By: #### P ROBF, BFPR, PHBF, BFCT, GLUBF, LDBF #### [address] [address] .GFRon 08-25-2025 Estimated Glomerular Filtration Rate 48 ml/min/1.73sqm Normal [facility] Comment on above: Result Comment: [...] ROBF, BFPR, PHBF, BFCT, GLUBF, LDBF #### [place] [address] .NEUABSon 04-13-2025 Neutrophil, Absolute 10.5 10 3/mcL High 2.3-8.1 [facility] Comment on above: Performed By: #### P ROBF, BFPR, PHBF, BFCT, GLUBF, LDBF #### [place] [address] CBCon 04-13-2025 Erythrocyte distribution width (RBC) [Ratio] 17.7 % High 11.5-15.5 [facility] Comment on above: Performed By: #### P ROBF, BFPR, PHBF, BFCT, GLUBF, LDBF #### [place] [address] Hematocrit (Bld) [Volume fraction] 29.7 % Low 40.0-52.0 [facility] Comment on above: Performed By: #### P ROBF, BFPR, PHBF, BFCT, GLUBF, LDBF #### [place] [address] Hgb 9.4 G/dL Low 13.0-17.5 [facility] Comment on above: Performed By: #### P ROBF, BFPR, PHBF, BFCT, GLUBF, LDBF #### [place] [address] MCH (RBC) [Entitic mass] 26.6 pg Low 27.0-33.0 [facility] Comment on above: Performed By: #### P ROBF, BFPR, PHBF, BFCT, GLUBF, LDBF #### [place] [address] MCHC 31.6 G/dL Low 32.0-36.0 [facility] Comment on above: Performed By: #### P ROBF, BFPR, PHBF, BFCT, GLUBF, LDBF #### [place] [address] MCV (RBC) [Entitic vol] 84.3 fL Normal 81.0-100.0 [facility] Comment on above: Performed By: #### P ROBF, BFPR, PHBF, BFCT, GLUBF, LDBF #### [place] [address] Platelet 201 10 3/mcL Normal 150-450 [facility] Comment on above: Performed By: #### P ROBF, BFPR, PHBF, BFCT, GLUBF, LDBF #### [place] [address] Platelet mean volume (Bld) [Entitic vol] 8.1 fL Normal 6.4-10.5 [facility] Comment on above: Performed By: #### P ROBF, BFPR, PHBF, BFCT, GLUBF, LDBF #### [place] [address] RBC 3.52 10 6/mcL Low 4.50-6.00 [facility] Comment on above: Performed By: #### P ROBF, BFPR, PHBF, BFCT, GLUBF, LDBF #### [place] [address] WBC 11.6 10 3/mcL High 4.5-10.8 [facility] Comment on above: Performed By: #### P ROBF, BFPR, PHBF, BFCT, GLUBF, LDBF #### [place] [id number] CMPon 04-13-2025 Albumin Level 2.9 G/dL Low 3.2-4.8 [facility] Comment on above: Performed By: #### P ROBF, BFPR, PHBF, BFCT, GLUBF, LDBF #### [place] [address] Albumin/Globulin [Mass ratio] 0.9 {ratio} Normal 0.9-1.6 [facility] Comment on above: Performed By: #### P ROBF, BFPR, PHBF, BFCT, GLUBF, LDBF #### [place] [address] ALP [Catalytic activity/Vol] 58 U/L Normal 38-126 [facility] Comment on above: Performed By: #### P ROBF, BFPR, PHBF, BFCT, GLUBF, LDBF #### [place] [id number] ALT [Catalytic activity/Vol] 32 U/L Normal 12-55 [facility] Comment on above: Performed By: #### P ROBF, BFPR, PHBF, BFCT, GLUBF, LDBF #### [place] [address] AST [Catalytic activity/Vol] 26 U/L Normal 8-34 [facility] Comment on above: Performed By: #### P ROBF, BFPR, PHBF, BFCT, GLUBF, LDBF #### [place] [address] Bili Total 0.50 mg/dL Normal 0.20-1.20 [facility] Comment on above: Result Comment: Use of this assay is not recommended for patients undergoing treatment with eltrombopag due to the potential for falsely elevated results. Performed By: #### P ROBF, BFPR, PHBF, BFCT, GLUBF, LDBF #### [place] [address] BUN/Creatinine Ratio 33.3 ratio High 10.0-22.0 [facility] Comment on above: Performed By: #### P ROBF, BFPR, PHBF, BFCT, GLUBF, LDBF #### [address] [address] Calcium [Mass/Vol] 8.8 mg/dL Normal 8.7-10.4 [facility] Comment on above: Performed By: #### P ROBF, BFPR, PHBF, BFCT, GLUBF, LDBF #### [address] [address] Chloride [Moles/Vol] 100 mmol/L Normal 98-110 [facility] Comment on above: Performed By: #### P ROBF, BFPR, PHBF, BFCT, GLUBF, LDBF #### [address] [address] CO2 [Moles/Vol] 39 mmol/L High 22-32 [facility] Comment on above: Performed By: #### P ROBF, BFPR, PHBF, BFCT, GLUBF, LDBF #### [address] [address] Creatinine [Mass/Vol] 1.47 mg/dL High 0.60-1.40 [facility] Comment on above: Result Comment: Test ing performed on [employer] analyzer using enzymatic creatinine methodology. Performed By: #### P ROBF, BFPR, PHBF, BFCT, GLUBF, LDBF #### [address] [address] Electrolyte Balance 4.0 mEq/L Normal 4.0-15.0 [facility] Comment on above: Performed By: #### P ROBF, BFPR, PHBF, BFCT, GLUBF, LDBF #### [address] [address] Globulin 3.4 G/dL Normal 2.5-4.2 [facility] Comment on above: Performed By: #### P ROBF, BFPR, PHBF, BFCT, GLUBF, LDBF #### [address] [address] Glucose [Mass/Vol] 192 mg/dL High 82-115 [facility] Comment on above: Performed By: #### P ROBF, BFPR, PHBF, BFCT, GLUBF, LDBF #### [address] [address] Potassium [Moles/Vol] 4.5 mmol/L Normal 3.5-5.0 [facility] Comment on above: Performed By: #### P ROBF, BFPR, PHBF, BFCT, GLUBF, LDBF #### [address] [address] Sodium [Moles/Vol] 143 mmol/L Normal 136-145 [facility] Comment on above: Performed By: #### P ROBF, BFPR, PHBF, BFCT, GLUBF, LDBF #### [place] [id number] Total Protein 6.3 G/dL Normal 5.7-8.2 [facility] Comment on above: Performed By: #### P ROBF, BFPR, PHBF, BFCT, GLUBF, LDBF #### [place] [address] Urea nitrogen [Mass/Vol] 49.0 mg/dL High 8.0-22.0 [facility] Comment on above: Performed By: #### P ROBF, BFPR, PHBF, BFCT, GLUBF, LDBF #### [place] [address] LABORATORYOrdered By: SYSTEM SYSTEM on 04-13-2025 Troponin I.cardiac DL <= 0.01 ng/mL [Mass/Vol] 174 ng/L High 0 - 54 ng/L ADM Comment on above: Interpretive Data: High Sensitive Troponin I Reference Ranges: Female: 0-34 ng/L Male: 0-54 ng/L Testing performed on [employer] analyzer using direct chemiluminescent technology. Lactate [Moles/Vol] [...] Comment on above: Interpretive Data: T he [employer] (CHEST, 1991, 102:312S-25S) [...] ng/L Male: 0-54 ng/L Testing performed on [employer] analyzer using direct chemiluminescent technology. LABORATORYOrdered By: [...] Lactic Acid Lvl 1.2 mmol/L Normal 0.5-2.2 [facility] Comment on above: Performed By: #### P ROBF, BFPR, PHBF, BFCT, GLUBF, LDBF #### [facility] [address] [place] [address] MGon 04-13-2025 Magnesium [Mass/Vol] 2.2 mg/dL Normal 1.6-2.4 [facility] Comment on above: Performed By: #### P ROBF, BFPR, PHBF, BFCT, GLUBF, LDBF #### [place] [id number] MYCOon 04-13-2025 Mycoplasma IgG Positive Normal [facility] Comment on above: Result Comment: INTE RPRETATION OF MYCOPLASMA IgG BY EIA: Negative: No detectable M. pneumoniae IgG antibody. Positive: Mycoplasma pneumoniae IgG antibody Detected. Equivocal: Equivocal for IgG antibodies to Mycoplasma pneumoniae. Suggest repeat testing in 10-14 days. Performed By: #### P ROBF, BFPR, PHBF, BFCT, GLUBF, LDBF #### [place] [address] Mycoplasma IgM Negative Normal [facility] Comment on above: Result Comment: [...] ROBF, BFPR, PHBF, BFCT, GLUBF, LDBF #### [place] [address] No Panel Informationon 04-13 Microscopic examination of blood, culture Culture has been received in lab and is no growth to date. Routine cultures are held for 5 days. [facility] Work Phone: PBNPon 04-13-2025 Natriuretic peptide B (Bld) [Mass/Vol] 6315 pg/mL High 0-1800 [facility] Comment on above: Performed By: #### P ROBF, BFPR, PHBF, BFCT, GLUBF, LDBF #### [place] [address] PROon 04-13-2025 INR Coag (PPP) [Relative time] 1.3 {INR} Normal [facility] Comment on above: Result Comment: [employer] (CHEST, 1992, 102:312S-25S) recommended therapeutic range for oral anticoagulant therapy is: LOW RISK: Prophylaxis of venous thrombosis INR: 2.0-3.0 Treatment of pulmonary embolism 2.0-3.0 Prevention of systemic embolism 2.0-3.0 HIGH RISK: Mechanical prosthetic valves 2.5-3.5 Performed By: #### P ROBF, BFPR, PHBF, BFCT, GLUBF, LDBF #### [place] [address] PT Coag (PPP) [Time] 14.5 s High 9.0-14.4 [facility] Comment on above: Result Comment: Effe ctive 03/03/08, Protime results may be affected by some antibiotics (i.e. Ciprofloxacin, Azithromycin, Bactrim) which may potentiate the action of oral anticoagulants, with further increases in Protime/INR. Performed By: #### P ROBF, BFPR, PHBF, BFCT, GLUBF, LDBF #### [place] [address] TROPHSon 04-13-2025 High Sensitivity Troponin I 174 ng/L [address] MAIN Comment on above: Result Comment: High Sensitive Troponin I Reference Ranges: Female: 0-34 ng/L Male: 0-54 ng/L Testing performed on [facility] [employer] analyzer using direct chemiluminescent technology. Performed By: #### P ROBF, BFPR, PHBF, BFCT, GLUBF, LDBF #### [place] [address] High Sensitivity Troponin I 141 ng/L [address] MAIN Comment on above: Result Comment: High Sensitive Troponin I Reference Ranges: Female: 0-34 ng/L Male: 0-54 ng/L Testing performed on [employer] analyzer using direct chemiluminescent technology. Performed By: #### P ROBF, BFPR, PHBF, BFCT, GLUBF, LDBF #### [place] [address] XR CHEST 1 VIEWon 04-13-2025 XR CHEST [...] 2:58:50 PM Ordering Provider: COLLEEN DOE [facility] 12 Lead EKGon 04-12-2025 12 Lead EKG Normal [facility] Absolute lymphocyte countOrd ered By: Daniel Brownlee on 04-12-2025 Lymphocytes Auto (Unsp spec) [#/Vol] 0.34 10*3/uL Low 0.83-4.51 [facility] Anion gap in Serum or Plasma Ordered By: Daniel Brownlee on 04-12-2025 Anion gap [Moles/Vol] 9 mmol/L 5-15 [facility] Automated lymphocyte count a s percentage of total leukocytesOrdered By: Daniel Brownlee on 04-12-2025 Lymphocytes/100 WBC Auto (Unsp spec) 2.5 % Low 19-41 [facility] BUN/creatinine ratioOrdered By: Daniel Brownlee on 04-12-2025 Urea nitrogen/Creatinine [Mass ratio] 41.9 mg/mg High 10-20 [facility] Basic Metabolic Profile (BMP )on 04-12-2025 BUN/CRE 41.9 RATIO High 10-20 [facility] Comment on above: Performed By: #### L 503.7505, L500.2500 ####[facility] [address] [place], [address] Calcium [Mass/Vol] 8.7 mg/dL Normal 7.6-11.[address] [facility] Comment on above: Performed By: #### L 503.7505, L500.2500 ####[facility] [address] [place], [address] Chloride [Moles/Vol] 93 mmol/L Low 98-108 [facility] Comment on above: Performed By: #### L 503.7505, L500.2500 ####[facility] [address] [place], [address] CO2 [Moles/Vol] 36.5 mmol/L High 21.0-32.0 [facility] Comment on above: Performed By: #### L 503.7505, L500.2500 ####[facility] [address] [place], [address] Creatinine [Mass/Vol] 1.43 mg/dL High 0.70-1.20 [facility] Comment on above: Performed By: #### L 503.7505, L500.2500 ####[facility] [address] [place], [address] ECRCL 37.18 ml/min Low 50-250 [facility] Comment on above: Performed By: #### L 503.7505, L500.2500 ####[facility] [address] [place], [address] GAP 9 Normal 5-15 [facility] Comment on above: Performed By: #### L 503.7505, L500.2500 ####[facility] [address] [place], [address] GFR/1.73 sq M.predicted among non-blacks MDRD (S/P/Bld) [Vol rate/Area] 50 mL/min/{1.73_m2} Low >60 [facility] Comment on above: Result Comment: mL/m in/1.73m2 CKD-EPI Creatinine Equation (2020) Performed By: #### L 503.7505, L500.2500 ####[facility] [address] [place], [address] Glucose [Mass/Vol] 189 mg/dL High 70-[address] [facility] Comment on above: Performed By: #### L 503.7505, L500.2500 ####[facility] [address] [place], [address] Potassium [Moles/Vol] 4.3 mmol/L Normal 3.3-5.1 [facility] Comment on above: Performed By: #### L 503.7505, L500.2500 ####[facility] [address] [place], [address] Sodium [Moles/Vol] 138 mmol/L Normal 133-[address] [facility] Comment on above: Performed By: #### L 503.7505, L500.2500 ####[facility] [address] [place], [address] Urea nitrogen [Mass/Vol] 60 mg/dL High 4-19 [facility] Comment on above: Performed By: #### L 503.7505, L500.2500 ####[facility] [address] [place], [address] Basophil percentageOrdered B y: Daniel Brownlee on 04-12-2025 Basophils/100 WBC (Bld) 0.1 % 0-[address] [facility] Bedside Glucoseon 04-12-2025 FINGERSTICK GLU 143 mg/dL High 74-106 [facility] Comment on above: Result Comment: KODY GEMENT OF PATIENT CARE PER NURSING PROTOCOL Performed By: #### L 501.080 ####[facility] [address] [place], [address] FINGERSTICK GLU 222 mg/dL High 74-106 [facility] Comment on above: Result Comment: KODY GEMENT OF PATIENT CARE PER NURSING PROTOCOL Performed By: #### L 501.080 ####[facility] [address] [place], [address] FINGERSTICK GLU 222 mg/dL High 74-106 [facility] Comment on above: Result Comment: KODY GEMENT OF PATIENT CARE PER NURSING PROTOCOL Performed By: #### L 501.080 ####[facility] [address] [place], [address] Body Fluid Culton 04-12-2025 BFC Culture exhibits no growth. Normal [facility] Comment on above: Performed By: #### L 200.0200, M100.2900, M100.2000, M100.4001, L350.1000 ####[facility] [address] [place], [address] CBC W/Diff, Automatedon 03-21 Absolute Lymph 0.34 X10 3/uL Low 0.83-4.51 [facility] Comment on above: Performed By: #### L 501.4021, L100.0100 ####[facility] [address] [place], [address] Absolute Neut 12.7 X10 3/uL High 2.0-7.7 [facility] Comment on above: Performed By: #### L 501.4021, L100.0100 ####[facility] [address] [place], [address] Basophils/100 WBC (Bld) 0.1 % Normal 0-[address] [facility] Comment on above: Performed By: #### L 501.4021, L100.0100 ####[facility] [address] [place], [address] Eosinophils/100 WBC (Bld) 0.0 % Normal 0-5 [facility] Comment on above: Performed By: #### L 501.4021, L100.0100 ####[facility] [address] [place], [address] Erythrocyte distribution width (RBC) [Ratio] 16.6 % High 11.6-14.6 [facility] Comment on above: Performed By: #### L 501.4021, L100.0100 ####[facility] [address] [place], [address] Hematocrit (Bld) [Volume fraction] 29.6 % Low 40-54 [facility] Comment on above: Performed By: #### L 501.4021, L100.0100 ####[facility] [address] [place], [address] Hemoglobin (Bld) [Mass/Vol] 9.1 g/dL Low 13.0-16.5 [facility] Comment on above: Performed By: #### L 501.4021, L100.0100 ####[facility] [address] [place], [address] IG% 0.700 Normal 0.0-0.9 [facility] Comment on above: Result Comment: IG% - Immature Granulocytes (promyelocytes, myelocytes andmetamyelocytes) > 1% indicates that a LEFT SHIFT is Present. Performed By: #### L 501.4021, L100.0100 ####[facility] [address] [place], [address] Lymphocytes/100 WBC (Bld) 2.5 % Low 19-41 [facility] Comment on above: Performed By: #### L 501.4021, L100.0100 ####[facility] [address] [place], [address] MCH (RBC) [Entitic mass] 27.2 pg Normal 27.0-32.0 [facility] Comment on above: Performed By: #### L 501.4021, L100.0100 ####[facility] [address] [place], [address] MCHC (RBC) [Mass/Vol] 30.7 g/dL Low 32-36 [facility] Comment on above: Performed By: #### L 501.4021, L100.0100 ####[facility] [address] [place], [address] MCV (RBC) [Entitic vol] 88.4 fL Normal 80-[address] [facility] Comment on above: Performed By: #### L 501.4021, L100.0100 ####[facility] [address] [place], [address] Monocytes/100 WBC (Bld) 4.2 % Normal 0-[address] [facility] Comment on above: Performed By: #### L 501.4021, L100.0100 ####[facility] [address] [place], [address] Neutrophils/100 WBC (Bld) 92.5 % High 47-70 [facility] Comment on above: Performed By: #### L 501.4021, L100.0100 ####[facility] [address] [place], [address] Nucleated RBC (Bld) [#/Vol] 0 10*3/uL Normal 0-5 [facility] Comment on above: Performed By: #### L 501.4021, L100.0100 ####[facility] [address] [place], [address] Platelet mean volume (Bld) [Entitic vol] 9.9 fL Normal 6.2-12.0 [facility] Comment on above: Performed By: #### L 501.4021, L100.0100 ####[facility] [address] [place], [address] Platelets (Bld) [#/Vol] 193 10*3/uL Normal 150-450 [facility] Comment on above: Performed By: #### L 501.4021, L100.0100 ####[facility] [address] [place], [address] RBC (Bld) [#/Vol] 3.35 10*6/uL Low 4.6-6.2 [facility] Comment on above: Performed By: #### L 501.4021, L100.0100 ####[facility] [address] [place], [address] RDW SD 53.6 fl High 35.1-43.9 [facility] Comment on above: Performed By: #### L 501.4021, L100.0100 ####[facility] [address] [place], [address] WBC (Bld) [#/Vol] 13.7 10*3/uL High 4.4-11.0 [facility] Comment on above: Performed By: #### L 501.4021, L100.0100 ####[facility] [address] [place], [address] Carbon dioxide, total [Moles /volume] in Central venous bloodOrdered By: Daniel Brownlee on 04-12-2025 CO2 [Moles/Vol] 36.5 mmol/L High 21.0-32.0 [facility] Chest PA and Lateralon 04-12 Chest PA and Lateral Normal [facility] Chest without Contraston Chest without Contrast Normal [facility] Chloride assayOrdered By: Kimo Brownlee on 04-12-2025 Chloride [Moles/Vol] 93 mmol/L Low 98-108 [facility] Culture, Anaerobic Any Sourc talat 04-12-2025 CUAN No anaerobic bacteri a isolated. Normal [facility] Comment on above: Performed By: #### L 200.0200, M100.2900, M100.2000, M100.4001, L350.1000 ####[facility] [address] [place], [place], [id number] Emergency Department Summary on 04-12-2025 Emergency Department Summary Normal [facility] Eosinophil percentageOrdered By: Daniel Brownlee on 04-12-2025 Eosinophils/100 WBC (Bld) 0.0 % 0-5 [facility] Erythrocyte distribution wid th ratioOrdered By: Daniel Brownlee on 04-12-2025 Erythrocyte distribution width (RBC) [Ratio] 16.6 % High 11.6-14.6 [facility] Erythrocyte distribution wid th standard deviationOrdered By: Daniel Brownlee on 04-12-2025 Erythrocyte distribution width (RBC) [Ratio] 53.6 fl High 35.1-43.9 [facility] Glomerular filtration rate ( GFR) estimation/1.73 sq m using serum, plasma, or whole bOrdered By: Daniel Brownlee on 04-12-2025 GFR/1.73 sq M.predicted among non-blacks MDRD (S/P/Bld) [Vol rate/Area] 50 mL/min/{1.73_m2} Low >60 [facility] Glucose measurement at [facility] deOrdered By: Valdez Olivo on 04-12-2025 Glucose [Mass/Vol] 143 mg/dL High 74-[address] [facility] Hematocrit Auto (Bld) [Volum e fraction]Ordered By: Daniel Brownlee on 04-12-2025 Hematocrit (Bld) [Volume fraction] 29.6 % Low 40-54 [facility] Hemoglobin measurementOrdere d By: Daniel Brownlee on 04-12-2025 Hemoglobin (Bld) [Mass/Vol] 9.1 g/dL Low 13.0-16.5 [facility] Immature granulocytes/100 WB C Auto (Bld)Ordered By: Daniel Brownlee on 04-12-2025 Immature granulocytes/100 WBC (Bld) 0.700 % 0.0-0.9 [facility] L501.4021on 04-12-2025 Trop T High Sen 103 ng/L Invalid Interpretation Code <=22 [facility] Comment on above: Result Comment: Crit ical Result(s) Called ACOLE2 at: 2036 by:RIVERA??Results read back by same. Performed By: #### L 501.4021, L100.0100 ####[facility] [address] [place], [address] MCV (mean corpuscular volume ) determinationOrdered By: Daniel Brownlee on 04-12-2025 MCV (RBC) [Entitic vol] 88.4 fL 80-[address] [facility] Mean corpuscular hemoglobin (MCH) determinationOrdered By: Daniel Brownlee on 04-12-2025 MCH (RBC) [Entitic mass] 27.2 pg 27.0-32.0 [facility] Monocyte percentageOrdered B y: Daniel Brownlee on 04-12-2025 Monocytes/100 WBC (Bld) 4.2 % 0-[address] [facility] Natriuretic peptide.B prohor girish N-Terminal [Mass/volume] in Serum or PlasmaOrdered By: Daniel Brownlee on 04-12-2025 Natriuretic peptide.B prohormone N-Terminal [Mass/Vol] 7022 pg/mL High <1800 [facility] Neutrophil percentageOrdered By: Daniel Brownlee on 04-12-2025 Neutrophils/100 WBC (Bld) 92.5 % High 47-70 [facility] Platelet countOrdered By: Kimo Brownlee on 04-12-2025 Platelets (Bld) [#/Vol] 193 10*3/uL 150-450 [facility] Potassium measurement (mass/ volume)Ordered By: Daniel Brownlee on 04-12-2025 Potassium (Unsp spec) [Mass/Vol] 4.3 mmol/L 3.3-5.1 [facility] Pro- Brain NATRIURETIC PEPTI Adrienne 04-12-2025 Natriuretic peptide B (Bld) [Mass/Vol] 7022 pg/mL High <=1800 [facility] Comment on above: Result Comment: Hear t Failure Unlikely: < 300 pg/mLHeart Failure Likely< 50 Years: > 450 pg/mL50-75 Years: > 900 pg/mL>75 Years: > 1800 pg/mL Performed By: #### L 503.7505, L500.2500 ####[facility] [address] [place], [place], [address] RBC Auto (Bld) [#/Vol]Ordere d By: Daniel Brownlee on 04-12-2025 RBC (Bld) [#/Vol] 3.35 10*6/uL Low 4.6-6.2 [facility] Serum creatinine measurement (mass/volume)Ordered By: Daniel Brownlee on 04-12-2025 Creatinine [Mass/Vol] 1.43 mg/dL High 0.70-1.20 [facility] Serum glucose measurement (m ass/volume)Ordered By: Daniel Brownlee on 04-12-2025 Glucose [Mass/Vol] 189 mg/dL High 70-[address] [facility] Serum or plasma calcium [place] urement (mass/volume)Ordered By: Daniel Brownlee on 04-12-2025 Calcium [Mass/Vol] 8.7 mg/dL 7.6-11.[address] [facility] Serum or plasma urea nitroge n measurement (mass/volume)Ordered By: Daniel Brownlee on 04-12-2025 Urea nitrogen [Mass/Vol] 60 mg/dL High 4-19 [facility] Sodium levelOrdered By: Mickie Brownlee on 04-12-2025 Sodium [Moles/Vol] 138 mmol/L 133-[address] [facility] Troponin T HS 2 HRon 025 Trop T High Sen 98 ng/L Invalid Interpretation Code <=22 [facility] Comment on above: Result Comment: Crit ical Result(s) Called [facility] at: 2234 by:RIVERA??Results read back by same. Performed By: #### L 499.0042 ####[facility] [address] [place], [place], [id number] Troponin T HS 4 HRon 025 Trop T High Sen Normal <=22 [facility] Comment on above: Result Comment: RAMÓN ENT DISCHARGED Performed By: #### L 499.0043 ####[facility] [address] [place], [address] Troponin T.cardiac [Mass/vol ume] in Serum or Plasma by High sensitivity methodOrdered By: Daniel Brownlee on 04-12-2025 Troponin T.cardiac High sensitivity method [Mass/Vol] 98 ng/L High <22 [facility] Troponin T.cardiac High sensitivity method [Mass/Vol] 103 ng/L High <22 [facility] White blood cell (WBC) count Ordered By: Daniel Brownlee on 04-12-2025 WBC (Bld) [#/Vol] 13.7 10*3/uL High 4.4-11.0 [facility] Absolute lymphocyte countOrd ered By: Valdez Olivo on 04-11-2025 Lymphocytes Auto (Unsp spec) [#/Vol] 0.34 10*3/uL Low 0.83-4.51 [facility] Anion gap in Serum or Plasma Ordered By: Valdez Olivo on 04-11-2025 Anion gap [Moles/Vol] 10 mmol/L 5-15 [facility] Automated lymphocyte count a s percentage of total leukocytesOrdered By: Valdez Olivo on 04-11-2025 Lymphocytes/100 WBC Auto (Unsp spec) 3.3 % Low 19-41 [facility] BUN/creatinine ratioOrdered By: Valdez Olivo on 04-11-2025 Urea nitrogen/Creatinine [Mass ratio] 42.1 mg/mg High 10-20 [facility] Basic Metabolic Profile (BMP )on 04-11-2025 BUN/CRE 42.1 RATIO High 10-20 [facility] Comment on above: Performed By: #### L 500.2500, L100.0100 ####[facility] [address] [place], [address] Calcium [Mass/Vol] 8.6 mg/dL Normal 7.6-11.[address] [facility] Comment on above: Performed By: #### L 500.2500, L100.0100 ####[facility] [address] [place], [address] Chloride [Moles/Vol] 94 mmol/L Low 98-108 [facility] Comment on above: Performed By: #### L 500.2500, L100.0100 ####[facility] [address] [place], [address] CO2 [Moles/Vol] 33.4 mmol/L High 21.0-32.0 [facility] Comment on above: Performed By: #### L 500.2500, L100.0100 ####[facility] [address] [place], [address] Creatinine [Mass/Vol] 1.62 mg/dL High 0.70-1.20 [facility] Comment on above: Performed By: #### L 500.2500, L100.0100 ####[facility] [address] [place], [address] ECRCL 32.82 ml/min Low 50-250 [facility] Comment on above: Performed By: #### L 500.2500, L100.0100 ####[facility] [address] [place], [address] GAP 10 Normal 5-15 [facility] Comment on above: Performed By: #### L 500.2500, L100.0100 ####[facility] [address] [place], [address] GFR/1.73 sq M.predicted among non-blacks MDRD (S/P/Bld) [Vol rate/Area] 43 mL/min/{1.73_m2} Low >60 [facility] Comment on above: Result Comment: mL/m in/1.73m2 CKD-EPI Creatinine Equation (2020) Performed By: #### L 500.2500, L100.0100 ####[facility] [address] [place], [address] Glucose [Mass/Vol] 176 mg/dL High 70-[address] [facility] Comment on above: Performed By: #### L 500.2500, L100.0100 ####[facility] [address] [place], [address] Potassium [Moles/Vol] 4.1 mmol/L Normal 3.3-5.1 [facility] Comment on above: Performed By: #### L 500.2500, L100.0100 ####[facility] [address] [place], [address] Sodium [Moles/Vol] 138 mmol/L Normal 133-[address] [facility] Comment on above: Performed By: #### L 500.2500, L100.0100 ####[facility] [address] [place], [address] Urea nitrogen [Mass/Vol] 68 mg/dL High 4-19 [facility] Comment on above: Performed By: #### L 500.2500, L100.0100 ####[facility] [address] [place], [address] BUN Normal 4-19 [facility] Comment on above: Result Comment: Canc elled via OM: Order cancelled - Patient discharged Performed By: #### L 500.2500, L100.0100 ####[facility] [address] [place], [address] BUN/CRE Normal 10-20 [facility] Comment on above: Result Comment: Canc elled via OM: Order cancelled - Patient discharged Performed By: #### L 500.2500, L100.0100 ####[facility] [address] [place], [address] Calcium Normal 7.6-11.0 [facility] Comment on above: Result Comment: Canc elled via OM: Order cancelled - Patient discharged Performed By: #### L 500.2500, L100.0100 ####[facility] [address] [place], [address] CL Normal 98-108 [facility] Comment on above: Result Comment: Canc elled via OM: Order cancelled - Patient discharged Performed By: #### L 500.2500, L100.0100 ####[facility] [address] [place], [address] CO2 Normal 21.0-32.0 [facility] Comment on above: Result Comment: Canc elled via OM: Order cancelled - Patient discharged Performed By: #### L 500.2500, L100.0100 ####[facility] [address] [place], [address] CREAT,SERUM Normal 0.70-1.20 [facility] Comment on above: Result Comment: Canc elled via OM: Order cancelled - Patient discharged Performed By: #### L 500.2500, L100.0100 ####[facility] [address] [place], [address] eGFR Normal >60 [facility] Comment on above: Result Comment: Canc elled via OM: Order cancelled - Patient discharged Performed By: #### L 500.2500, L100.0100 ####[facility] [address] [place], [address] GAP Normal 5-15 [facility] Comment on above: Result Comment: Canc elled via OM: Order cancelled - Patient discharged Performed By: #### L 500.2500, L100.0100 ####[facility] [address] [place], [address] GLU Normal 70-99 [facility] Comment on above: Result Comment: Canc elled via OM: Order cancelled - Patient discharged Performed By: #### L 500.2500, L100.0100 ####[facility] [address] [place], [address] Potassium Normal 3.3-5.1 [facility] Comment on above: Result Comment: Canc elled via OM: Order cancelled - Patient discharged Performed By: #### L 500.2500, L100.0100 ####[facility] [address] [place], [address] Basic Metabolic Profile (BMP) Normal 133-145 [facility] Comment on above: Result Comment: Canc elled via OM: Order cancelled - Patient discharged Performed By: #### L 500.2500, L100.0100 ####[facility] [address] [place], [address] Basophil percentageOrdered B y: Valdez Lariosok on 04-11-2025 Basophils/100 WBC (Bld) 0.1 % 0-[address] [facility] Bedside Glucoseon 04-11-2025 FINGERSTICK GLU 323 mg/dL High 74-106 [facility] Comment on above: Result Comment: KODY GEMENT OF PATIENT CARE PER NURSING PROTOCOL Performed By: #### L 501.080 ####[facility] [address] [place], [address] FINGERSTICK GLU 166 mg/dL High 74-106 [facility] Comment on above: Result Comment: KODY GEMENT OF PATIENT CARE PER NURSING PROTOCOL Performed By: #### L 501.080 ####[facility] [address] [place], [address] FINGERSTICK GLU 273 mg/dL High 74-106 [facility] Comment on above: Result Comment: KODY GEMENT OF PATIENT CARE PER NURSING PROTOCOL Performed By: #### L 501.080 ####[facility] [address] [place], [address] CBC W/Diff, Automatedon 03-21 Absolute Lymph 0.34 X10 3/uL Low 0.83-4.51 [facility] Comment on above: Performed By: #### L 500.2500, L100.0100 ####[facility] [address] [place], [address] Absolute Neut 9.0 X10 3/uL High 2.0-7.7 [facility] Comment on above: Performed By: #### L 500.2500, L100.0100 ####[facility] [address] [place], [address] Basophils/100 WBC (Bld) 0.1 % Normal 0-[address] [facility] Comment on above: Performed By: #### L 500.2500, L100.0100 ####[facility] [address] [place], [address] Eosinophils/100 WBC (Bld) 0.0 % Normal 0-5 [facility] Comment on above: Performed By: #### L 500.2500, L100.0100 ####[facility] [address] [place], [address] Erythrocyte distribution width (RBC) [Ratio] 16.6 % High 11.6-14.6 [facility] Comment on above: Performed By: #### L 500.2500, L100.0100 ####[facility] [address] [place], [address] Hematocrit (Bld) [Volume fraction] 28.4 % Low 40-54 [facility] Comment on above: Performed By: #### L 500.2500, L100.0100 ####[facility] [address] [place], [address] Hemoglobin (Bld) [Mass/Vol] 8.7 g/dL Low 13.0-16.5 [facility] Comment on above: Performed By: #### L 500.2500, L100.0100 ####[facility] [address] [place], [address] IG% 0.600 Normal 0.0-0.9 [facility] Comment on above: Result Comment: IG% - Immature Granulocytes (promyelocytes, myelocytes andmetamyelocytes) > 1% indicates that a LEFT SHIFT is Present. Performed By: #### L 500.2500, L100.0100 ####[facility] [address] [place], [address] Lymphocytes/100 WBC (Bld) 3.3 % Low 19-41 [facility] Comment on above: Performed By: #### L 500.2500, L100.0100 ####[facility] [address] [place], [address] MCH (RBC) [Entitic mass] 26.7 pg Low 27.0-32.0 [facility] Comment on above: Performed By: #### L 500.2500, L100.0100 ####[facility] [address] [place], [address] MCHC (RBC) [Mass/Vol] 30.6 g/dL Low 32-36 [facility] Comment on above: Performed By: #### L 500.2500, L100.0100 ####[facility] [address] [place], [address] MCV (RBC) [Entitic vol] 87.1 fL Normal 80-[address] [facility] Comment on above: Performed By: #### L 500.2500, L100.0100 ####[facility] [address] [place], [address] Monocytes/100 WBC (Bld) 8.7 % Normal 0-[address] [facility] Comment on above: Performed By: #### L 500.2500, L100.0100 ####[facility] [address] [place], [address] Neutrophils/100 WBC (Bld) 87.3 % High 47-70 [facility] Comment on above: Performed By: #### L 500.2500, L100.0100 ####[facility] [address] [place], [address] Nucleated RBC (Bld) [#/Vol] 0 10*3/uL Normal 0-5 [facility] Comment on above: Performed By: #### L 500.2500, L100.0100 ####[facility] [address] [place], [address] Platelet mean volume (Bld) [Entitic vol] 10.2 fL Normal 6.2-12.0 [facility] Comment on above: Performed By: #### L 500.2500, L100.0100 ####[facility] [address] [place], [address] Platelets (Bld) [#/Vol] 186 10*3/uL Normal 150-450 [facility] Comment on above: Performed By: #### L 500.2500, L100.0100 ####[facility] [address] [place], [address] RBC (Bld) [#/Vol] 3.26 10*6/uL Low 4.6-6.2 [facility] Comment on above: Performed By: #### L 500.2500, L100.0100 ####[facility] [address] [place], [address] RDW SD 52.9 fl High 35.1-43.9 [facility] Comment on above: Performed By: #### L 500.2500, L100.0100 ####[facility] [address] [place], [address] WBC (Bld) [#/Vol] 10.3 10*3/uL Normal 4.4-11.0 [facility] Comment on above: Performed By: #### L 500.2500, L100.0100 ####[facility] [id number] [place], [address] Absolute Neut Normal 2.0-7.7 [facility] Comment on above: Result Comment: Canc elled via OM: Order cancelled - Patient discharged Performed By: #### L 500.2500, L100.0100 ####[facility] [id number] [place], [address] HCT Normal 40-54 [facility] Comment on above: Result Comment: Canc elled via OM: Order cancelled - Patient discharged Performed By: #### L 500.2500, L100.0100 ####[facility] [id number] [place], [address] HGB Normal 13.0-16.5 [facility] Comment on above: Result Comment: Canc elled via OM: Order cancelled - Patient discharged Performed By: #### L 500.2500, L100.0100 ####[facility] [address] [place], [address] MCH Normal 27.0-32.0 [facility] Comment on above: Result Comment: Canc elled via OM: Order cancelled - Patient discharged Performed By: #### L 500.2500, L100.0100 ####[facility] [address] [place], [address] MCHC Normal 32-36 [facility] Comment on above: Result Comment: Canc elled via OM: Order cancelled - Patient discharged Performed By: #### L 500.2500, L100.0100 ####[facility] [address] [place], [address] MCV Normal 80-94 [facility] Comment on above: Result Comment: Canc elled via OM: Order cancelled - Patient discharged Performed By: #### L 500.2500, L100.0100 ####[facility] [address] [place], [address] NEUT% Normal 47-70 [facility] Comment on above: Result Comment: Canc elled via OM: Order cancelled - Patient discharged Performed By: #### L 500.2500, L100.0100 ####[facility] [address] [place], [address] PLT Normal 150-450 [facility] Comment on above: Result Comment: Canc elled via OM: Order cancelled - Patient discharged Performed By: #### L 500.2500, L100.0100 ####[facility] [address] [place], [address] RBC Normal 4.6-6.2 [facility] Comment on above: Result Comment: Canc elled via OM: Order cancelled - Patient discharged Performed By: #### L 500.2500, L100.0100 ####[facility] [address] [place], [address] RDW CV Normal 11.6-14.6 [facility] Comment on above: Result Comment: Canc elled via OM: Order cancelled - Patient discharged Performed By: #### L 500.2500, L100.0100 ####[facility] [address] [place], [address] RDW SD Normal 35.1-43.9 [facility] Comment on above: Result Comment: Canc elled via OM: Order cancelled - Patient discharged Performed By: #### L 500.2500, L100.0100 ####[facility] [address] [place], [address] WBC Normal 4.4-11.0 [facility] Comment on above: Result Comment: Canc elled via OM: Order cancelled - Patient discharged Performed By: #### L 500.2500, L100.0100 ####[facility] [address] [place], [address] COVID 19 AG RAPID (KHURRAM Becerril)on 04-11-2025 SARS-CoV-2 (COVID-19) RNA BRYAN+probe Ql (Unsp spec) Normal [facility] Comment on above: Performed By: #### M 100.505 ####[facility] [address] [place], [place], [id number] COVID-19 virus antigen assay Ordered By: Valdez Geovani on 04-11-2025 SARS-CoV-2 (COVID-19) Ag IA.rapid Ql (Resp) [facility] Carbon dioxide, total [Moles /volume] in Central venous bloodOrdered By: Valdez Geovani on 04-11-2025 CO2 [Moles/Vol] 33.4 mmol/L High 21.0-32.0 [facility] Chloride assayOrdered By: Aiden Olivo on 04-11-2025 Chloride [Moles/Vol] 94 mmol/L Low 98-108 [facility] Eosinophil percentageOrdered By: Valdez Geovani on 04-11-2025 Eosinophils/100 WBC (Bld) 0.0 % 0-5 [facility] Erythrocyte distribution wid th ratioOrdered By: Valdez Geovani on 04-11-2025 Erythrocyte distribution width (RBC) [Ratio] 16.6 % High 11.6-14.6 [facility] Erythrocyte distribution wid th standard deviationOrdered By: Valdez Olivo on 04-11-2025 Erythrocyte distribution width (RBC) [Ratio] 52.9 fl High 35.1-43.9 [facility] Glomerular filtration rate ( GFR) estimation/1.73 sq m using serum, plasma, or whole bOrdered By: Valdez Geovani on 04-11-2025 GFR/1.73 sq M.predicted among non-blacks MDRD (S/P/Bld) [Vol rate/Area] 43 mL/min/{1.73_m2} Low >60 [facility] Gram Stainon 04-11-2025 GS Centrifuged Specimen ? Culture performed on centrifuged specimen Gram Stain 1+ White Blood Cells No organisms seen Normal [facility] Comment on above: Performed By: #### L 200.0200, M100.2900, M100.2000, M100.4001, L350.1000 ####[facility] [address] [place], [address] Hematocrit Auto (Bld) [Volum e fraction]Ordered By: Valdez Olivo on 04-11-2025 Hematocrit (Bld) [Volume fraction] 28.4 % Low 40-54 [facility] Hemoglobin measurementOrdere d By: Valdez Olivo on 04-11-2025 Hemoglobin (Bld) [Mass/Vol] 8.7 g/dL Low 13.0-16.5 [facility] Immature granulocytes/100 WB C Auto (Bld)Ordered By: Valdez Olivo on 04-11-2025 Immature granulocytes/100 WBC (Bld) 0.600 % 0.0-0.9 [facility] MCV (mean corpuscular volume ) determinationOrdered By: Valdez Olivo on 04-11-2025 MCV (RBC) [Entitic vol] 87.1 fL 80-[address] [facility] Mean corpuscular hemoglobin (MCH) determinationOrdered By: Valdez Olivo on 04-11-2025 MCH (RBC) [Entitic mass] 26.7 pg Low 27.0-32.0 [facility] Monocyte percentageOrdered B y: Valdez Olivo on 04-11-2025 Monocytes/100 WBC (Bld) 8.7 % 0-[address] [facility] Neutrophil percentageOrdered By: Valdez Olivo on 04-11-2025 Neutrophils/100 WBC (Bld) 87.3 % High 47-70 [facility] Platelet countOrdered By: Aiden Olivo on 04-11-2025 Platelets (Bld) [#/Vol] 186 10*3/uL 150-450 [facility] Potassium measurement (mass/ volume)Ordered By: Valdez Olivo on 04-11-2025 Potassium (Unsp spec) [Mass/Vol] 4.1 mmol/L 3.3-5.1 [facility] RBC Auto (Bld) [#/Vol]Ordere d By: Valdez Olivo on 04-11-2025 RBC (Bld) [#/Vol] 3.26 10*6/uL Low 4.6-6.2 [facility] Serum creatinine measurement (mass/volume)Ordered By: Valdez Olivo on 04-11-2025 Creatinine [Mass/Vol] 1.62 mg/dL High 0.70-1.20 [facility] Serum glucose measurement (m ass/volume)Ordered By: Valdez Olivo on 04-11-2025 Glucose [Mass/Vol] 176 mg/dL High 70-[address] [facility] Serum or plasma calcium kings[place] urement (mass/volume)Ordered By: Valdez Olivo on 04-11-2025 Calcium [Mass/Vol] 8.6 mg/dL 7.6-11.[address] [facility] Serum or plasma urea nitroge n measurement (mass/volume)Ordered By: Valdez Olivo on 04-11-2025 Urea nitrogen [Mass/Vol] 68 mg/dL High 4-19 [facility] Sodium levelOrdered By: Valdez Olivo on 04-11-2025 Sodium [Moles/Vol] 138 mmol/L 133-[address] [facility] White blood cell (WBC) count Ordered By: Valdez Olivo on 04-11-2025 WBC (Bld) [#/Vol] 10.3 10*3/uL 4.4-11.0 [facility] Absolute lymphocyte countOrd ered By: Nicola Roman on 04-10-2025 Lymphocytes Auto (Unsp spec) [#/Vol] 0.17 10*3/uL Low 0.83-4.51 [facility] Activated partial thrombopla stin time (aPTT) in platelet poor plasma by coagulation aOrdered By: Nicola Marroquin on 04-10-2025 aPTT Coag (PPP) [Time] 29.5 s 24.1-36.2 [facility] Anaerobic cultureOrdered By: Nicola Roman on 04-10-2025 Bacteria identified Anaer cx Nom (Unsp spec) No anaerobic bacteria isolated. [facility] Anion gap in Serum or Plasma Ordered By: Nicola Roman on 04-10-2025 Anion gap [Moles/Vol] 12 mmol/L 5-15 [facility] Automated lymphocyte count a s percentage of total leukocytesOrdered By: Nicola Roman on 04-10-2025 Lymphocytes/100 WBC Auto (Unsp spec) 1.9 % Low 19-41 [facility] BUN/creatinine ratioOrdered By: Nicola Roman on 04-10-2025 Urea nitrogen/Creatinine [Mass ratio] 44.4 mg/mg High 10-20 [facility] Basic Metabolic Profile (BMP )on 04-10-2025 BUN/CRE 44.4 RATIO High 10- [facility] Comment on above: Performed By: #### L 100.0100, L500.2500 ####[facility] [address] [place], [address] Calcium [Mass/Vol] 8.4 mg/dL Normal 7.6-11.[address] [facility] Comment on above: Performed By: #### L 100.0100, L500.2500 ####[facility] [address] [place], [address] Chloride [Moles/Vol] 92 mmol/L Low 98-108 [facility] Comment on above: Performed By: #### L 100.0100, L500.2500 ####[facility] [address] [place], [address] CO2 [Moles/Vol] 32.1 mmol/L High 21.0-32.0 [facility] Comment on above: Performed By: #### L 100.0100, L500.2500 ####[facility] [address] [place], [address] Creatinine [Mass/Vol] 1.71 mg/dL High 0.70-1.20 [facility] Comment on above: Performed By: #### L 100.0100, L500.2500 ####[facility] [address] [place], [address] ECRCL 31.09 ml/min Low 50-250 [facility] Comment on above: Performed By: #### L 100.0100, L500.2500 ####[facility] [address] [place], [address] GAP 12 Normal 5-15 [facility] Comment on above: Performed By: #### L 100.0100, L500.2500 ####[facility] [address] [place], [address] GFR/1.73 sq M.predicted among non-blacks MDRD (S/P/Bld) [Vol rate/Area] 40 mL/min/{1.73_m2} Low >60 [facility] Comment on above: Result Comment: mL/m in/1.73m2 CKD-EPI Creatinine Equation (2020) Performed By: #### L 100.0100, L500.2500 ####[facility] [address] [place], [address] Glucose [Mass/Vol] 244 mg/dL High 70-[address] [facility] Comment on above: Performed By: #### L 100.0100, L500.2500 ####[facility] [address] [place], [address] Potassium [Moles/Vol] 4.1 mmol/L Normal 3.3-5.1 [facility] Comment on above: Performed By: #### L 100.0100, L500.2500 ####[facility] [address] [place], [address] Sodium [Moles/Vol] 137 mmol/L Normal 133-[address] [facility] Comment on above: Performed By: #### L 100.0100, L500.2500 ####[facility] [address] [place], [address] Urea nitrogen [Mass/Vol] 76 mg/dL High 4-19 [facility] Comment on above: Performed By: #### L 100.0100, L500.2500 ####[facility] [address] [place], [address] Basophil percentageOrdered B y: Nicola Roman on 04-10-2025 Basophils/100 WBC (Bld) 0.1 % 0-[address] [facility] Bedside Glucoseon 04-10-2025 FINGERSTICK GLU 341 mg/dL High 74-106 [facility] Comment on above: Result Comment: KODY STRONG OF PATIENT CARE PER NURSING PROTOCOL Performed By: #### L 501.080 ####[facility] [address] [place], [address] FINGERSTICK GLU 327 mg/dL High 74-106 [facility] Comment on above: Result Comment: KODY GEMENT OF PATIENT CARE PER NURSING PROTOCOL Performed By: #### L 501.080 ####[facility] [address] [place], [address] FINGERSTICK GLU 346 mg/dL High 74-106 [facility] Comment on above: Result Comment: KOYD GEMENT OF PATIENT CARE PER NURSING PROTOCOL Performed By: #### L 501.080 ####[facility] [address] [place], [address] FINGERSTICK GLU 236 mg/dL High -106 [facility] Comment on above: Result Comment: KODY GEMENT OF PATIENT CARE PER NURSING PROTOCOL Performed By: #### L 501.080 ####[facility] [address] [place], [address] Body Fluid Cell Count+Diffon 04-10-2025 PATH COMM/BF Reviewed Normal [facility] Comment on above: Order Comment: The r eference range and other method performancespecifications have not been established for this bodyfluid. The test must be integrated into the clinicalcontext for interpretation. Result Comment: SHINGLE GRADER MYRANDA INFLAMMATORY CELLS. OCCASIONAL MESOTHELIAL CELLSNOTED. NO MALIGNANT CELLS IDENTIFIED.Ludmila GOMEZ MD 04/10/25 @1730 AMENDED REPORT 04/10/25 1735 PATH COMM/BF previously reported as: May follow Performed By: #### L 200.0200, M100.2900, M100.2000, M100.4001, L350.1000 ####[facility] [address] [place], [address] Body fluid appearance (nomin al result)Ordered By: Nicola Roman on 04-10-2025 Appearance (Body fld) CLEAR [facility] Body fluid color determinati onOrdered By: Nicola Roman on 04-10-2025 Color (Body fld) YELLOW [facility] Body fluid cultureOrdered By : Nicola Roman on 04-10-2025 Microbial culture, body fluid Culture exhibits no growth. [facility] Body fluid lactate dehydroge nase measurement (enzymatic activity/volume) by pyruvateOrdered By: Nicola Roman on 04-10-2025 LDH Pyruvate to lactate reaction (Body fld) [Catalytic activity/Vol] 61 Units/L Not Establ. [facility] Body fluid leukocytes count (number/volume)Ordered By: Nicola Roman on 04-10-2025 WBC (Body fld) [#/Vol] 0.128 10*3/uL [facility] Body fluid lymphocytes/100 l eukocytesOrdered By: Nicola Roman on 04-10-2025 Lymphocytes/100 WBC (Body fld) 44 % [facility] Body fluid macrophage countO rdered By: Nicola Roman on 04-10-2025 Macrophages (Body fld) [#/Vol] 41 % [facility] Body fluid mononuclear cell percentageOrdered By: Nicola Roman on 04-10-2025 Mononuclear cells/100 WBC (Body fld) 94.6 % [facility] Body fluid protein measureme nt (mass/volume)Ordered By: Nicola Roman on 04-10-2025 Protein (Body fld) [Mass/Vol] 2.1 g/dL Not Establ. [facility] Body fluid segmented neutrop hils count (number/volume)Ordered By: Nicola Roman on 04-10-2025 Segmented neutrophils (Body fld) [#/Vol] 6 % [facility] Body fluid total cell countO rdered By: Nicola Roman on 04-10-2025 Cells Counted Total (Body fld) [#] 0.154 10^3/ul [facility] CBC W/Diff, Automatedon 03-21 Absolute Lymph 0.17 X10 3/uL Low 0.83-4.51 [facility] Comment on above: Performed By: #### L 100.0100, L500.2500 ####[facility] [address] [place], [address] Absolute Neut 8.2 X10 3/uL High 2.0-7.7 [facility] Comment on above: Performed By: #### L 100.0100, L500.2500 ####[facility] [address] [place], [address] Basophils/100 WBC (Bld) 0.1 % Normal 0-[address] [facility] Comment on above: Performed By: #### L 100.0100, L500.2500 ####[facility] [address] [place], [address] Eosinophils/100 WBC (Bld) 0.0 % Normal 0-5 [facility] Comment on above: Performed By: #### L 100.0100, L500.2500 ####[facility] [address] [place], [address] Erythrocyte distribution width (RBC) [Ratio] 17.1 % High 11.6-14.6 [facility] Comment on above: Performed By: #### L 100.0100, L500.2500 ####[facility] [address] [place], [address] Hematocrit (Bld) [Volume fraction] 28.2 % Low 40-54 [facility] Comment on above: Performed By: #### L 100.0100, L500.2500 ####[facility] [address] [place], [address] Hemoglobin (Bld) [Mass/Vol] 8.7 g/dL Low 13.0-16.5 [facility] Comment on above: Performed By: #### L 100.0100, L500.2500 ####[facility] [address] [place], [address] IG% 0.900 Normal 0.0-0.9 [facility] Comment on above: Result Comment: IG% - Immature Granulocytes (promyelocytes, myelocytes andmetamyelocytes) > 1% indicates that a LEFT SHIFT is Present. Performed By: #### L 100.0100, L500.2500 ####[facility] [address] [place], [address] Lymphocytes/100 WBC (Bld) 1.9 % Low 19-41 [facility] Comment on above: Performed By: #### L 100.0100, L500.2500 ####[facility] [address] [place], [address] MCH (RBC) [Entitic mass] 26.9 pg Low 27.0-32.0 [facility] Comment on above: Performed By: #### L 100.0100, L500.2500 ####[facility] [address] [place], [address] MCHC (RBC) [Mass/Vol] 30.9 g/dL Low 32-36 [facility] Comment on above: Performed By: #### L 100.0100, L500.2500 ####[facility] [address] [place], [address] MCV (RBC) [Entitic vol] 87.0 fL Normal 80-[address] [facility] Comment on above: Performed By: #### L 100.0100, L500.2500 ####[facility] [address] [place], [address] Monocytes/100 WBC (Bld) 5.5 % Normal 0-[address] [facility] Comment on above: Performed By: #### L 100.0100, L500.2500 ####[facility] [address] [place], [address] Neutrophils/100 WBC (Bld) 91.6 % High 47-70 [facility] Comment on above: Performed By: #### L 100.0100, L500.2500 ####[facility] [address] [place], [address] Nucleated RBC (Bld) [#/Vol] 0.2 10*3/uL Normal 0-5 [facility] Comment on above: Performed By: #### L 100.0100, L500.2500 ####[facility] [address] [place], [address] Platelet mean volume (Bld) [Entitic vol] 10.0 fL Normal 6.2-12.0 [facility] Comment on above: Performed By: #### L 100.0100, L500.2500 ####[facility] [address] [place], [address] Platelets (Bld) [#/Vol] 208 10*3/uL Normal 150-450 [facility] Comment on above: Performed By: #### L 100.0100, L500.2500 ####[facility] [address] [place], [address] RBC (Bld) [#/Vol] 3.24 10*6/uL Low 4.6-6.2 [facility] Comment on above: Performed By: #### L 100.0100, L500.2500 ####[facility] [address] [place], [address] RDW SD 53.5 fl High 35.1-43.9 [facility] Comment on above: Performed By: #### L 100.0100, L500.2500 ####[facility] [address] [place], [address] WBC (Bld) [#/Vol] 9.0 10*3/uL Normal 4.4-11.[address] [facility] Comment on above: Performed By: #### L 100.0100, L500.2500 ####[facility] [address] [place], [address] Carbon dioxide, total [Moles /volume] in Central venous bloodOrdered By: Nicola Roman on 04-10-2025 CO2 [Moles/Vol] 32.1 mmol/L High 21.0-32.0 [facility] Chest without Contraston Chest without Contrast Normal [facility] Chloride assayOrdered By: Stephen Roman on 04-10-2025 Chloride [Moles/Vol] 92 mmol/L Low 98-108 [facility] Cytology report of Body flui d Cyto stainOrdered By: Nicola Roman on 04-10-2025 Cytology report Cyto stain Doc (Body fld) SEE PATHOLOGY REPORT [facility] Cytology, Body Fluid / CSFon 04-10-2025 CYTOLOGY,BF/CSF SEE PATHOLOGY REPORT Normal [facility] Comment on above: Result Comment: Spec imen submitted to Anatomical Pathology Department fortesting. Performed By: #### L 200.0200, M100.2900, M100.2000, M100.4001, L350.1000 ####[facility] [address] [place], [address] Eosinophil percentageOrdered By: Nicola Roman on 04-10-2025 Eosinophils/100 WBC (Bld) 0.0 % 0-5 [facility] Erythrocyte distribution wid th ratioOrdered By: Nicola Roman on 04-10-2025 Erythrocyte distribution width (RBC) [Ratio] 17.1 % High 11.6-14.6 [facility] Erythrocyte distribution wid th standard deviationOrdered By: Nicola Roman on 04-10-2025 Erythrocyte distribution width (RBC) [Ratio] 53.5 fl High 35.1-43.9 [facility] Glomerular filtration rate ( GFR) estimation/1.73 sq m using serum, plasma, or whole bOrdered By: Nicola Roman on 04-10-2025 GFR/1.73 sq M.predicted among non-blacks MDRD (S/P/Bld) [Vol rate/Area] 40 mL/min/{1.73_m2} Low >60 [facility] Glucose measurement at bedsi deOrdered By: Nicola Roman on 04-10-2025 Glucose [Mass/Vol] 327 mg/dL High 74-[address] [facility] Glucose, Body Fluidon 2024 GLUC, BODY FLD 274 mg/dL Normal Not Establ. [facility] Comment on above: Performed By: #### L 504.0250, L503.0100, L503.0300 ####[facility] [address] [place], [address] Gram stainOrdered By: Nicola Roman on 04-10-2025 Microscopic observation Gram stain Nom (Unsp spec) [facility] Hematocrit Auto (Bld) [Volum e fraction]Ordered By: Nicola Roman on 04-10-2025 Hematocrit (Bld) [Volume fraction] 28.2 % Low 40-54 [facility] Hemoglobin measurementOrdere d By: Nicola Roman on 04-10-2025 Hemoglobin (Bld) [Mass/Vol] 8.7 g/dL Low 13.0-16.5 [facility] Immature granulocytes/100 WB C Auto (Bld)Ordered By: Nicola Roman on 04-10-2025 Immature granulocytes/100 WBC (Bld) 0.900 % 0.0-0.9 [facility] LDHon 04-10-2025 LDH 179 U/L Normal 87-241 [facility] Comment on above: Order Comment: FG1 3 O Performed By: #### L 504.2610 ####[facility] [address] [place], [address] LDH,Body Fluidon 04-10-2025 LDH,BF 61 Units/L Normal Not Establ. [facility] Comment on above: Performed By: #### L 504.0250, L503.0100, L503.0300 ####[facility] [address] [place], [address] MCV (mean corpuscular volume ) determinationOrdered By: Nicola Roman on 04-10-2025 MCV (RBC) [Entitic vol] 87.0 fL 80-[address] [facility] Mean corpuscular hemoglobin (MCH) determinationOrdered By: Nicola Roman on 04-10-2025 MCH (RBC) [Entitic mass] 26.9 pg Low 27.0-32.0 [facility] Monocyte detectionOrdered By : Nicola Roman on 04-10-2025 Monocytes/100 WBC (Bld) 9 % [facility] Monocyte percentageOrdered B y: Nicola Roman on 04-10-2025 Monocytes/100 WBC (Bld) 5.5 % 0-[address] [facility] Neutrophil percentageOrdered By: Nicola Roman on 04-10-2025 Neutrophils/100 WBC (Bld) 91.6 % High 47-70 [facility] No Panel InformationOrdered By: Nicola Roman on 04-10-2025 495 /mm3 [facility] SEE COMMENT [facility] Pacemaker Checkon 04-10-2025 Pacemaker Check Normal [facility] Partial Thromboplast Timeon 04-10-2025 aPTT Coag (Bld) [Time] 29.5 s Normal 24.1-36.2 [facility] Comment on above: Performed By: #### L 300.3900, L300.4310 ####[facility] [address] [place], [place], [id number] Pathologist interpretation o f Body fluid testsOrdered By: Nicola Roman on 04-10-2025 Pathologist interpretation (Body fld) [Interp] Reviewed [facility] Platelet countOrdered By: Stephen Roman on 04-10-2025 Platelets (Bld) [#/Vol] 208 10*3/uL 150-450 [facility] Potassium measurement (mass/ volume)Ordered By: Nicola Roman on 04-10-2025 Potassium (Unsp spec) [Mass/Vol] 4.1 mmol/L 3.3-5.1 [facility] Protein, Body Fluidon 2024 Protein [Mass/Vol] 2.1 g/dL Normal Not Establ. [facility] Comment on above: Performed By: #### L 504.0250, L503.0100, L503.0300 ####[facility] [address] [place], [place], [id number] Prothrombin Time w/INRon INR Coag (PPP) [Relative time] 1.3 {INR} Normal [facility] Comment on above: Performed By: #### L 300.3900, L300.4310 ####[facility] [address] [place], [place], [address] PT Coag (PPP) [Time] 16.7 s High 11.7-14.9 [facility] Comment on above: Performed By: #### L 300.3900, L300.4310 ####[facility] [address] [place], [place], [address] Prothrombin timeOrdered By: Nicola Marroquin on 04-10-2025 PT Coag (PPP) [Time] 16.7 s High 11.7-14.9 [facility] RBC Auto (Bld) [#/Vol]Ordere d By: Nicola Roman on 04-10-2025 RBC (Bld) [#/Vol] 3.24 10*6/uL Low 4.6-6.2 [facility] Serum creatinine measurement (mass/volume)Ordered By: Nicola Roman on 04-10-2025 Creatinine [Mass/Vol] 1.71 mg/dL High 0.70-1.20 [facility] Serum glucose measurement (m ass/volume)Ordered By: Nicola Roman on 04-10-2025 Glucose [Mass/Vol] 244 mg/dL High 70-[address] [facility] Serum or plasma calcium [place] urement (mass/volume)Ordered By: Nicola Roman on 04-10-2025 Calcium [Mass/Vol] 8.4 mg/dL 7.6-11.[address] [facility] Serum or plasma urea nitroge n measurement (mass/volume)Ordered By: Nicola Roman on 04-10-2025 Urea nitrogen [Mass/Vol] 76 mg/dL High 4-19 [facility] Sodium levelOrdered By: Jaspal Roman on 04-10-2025 Sodium [Moles/Vol] 137 mmol/L 133-[address] [facility] Special Stain Group IIon Special Stain Group II Normal [facility] Comment on above: Performed By: #### P SSII ####[facility] [address] [place], [place], [id number] Specimen source identificati on of body fluidOrdered By: Nicola Roman on 04-10-2025 Specimen source Nom (Body fld) THORACENTESIS [facility] Thoracentesis W USon 025 Thoracentesis W US Normal [facility] White blood cell (WBC) count Ordered By: Nicola Roman on 04-10-2025 WBC (Bld) [#/Vol] 9.0 10*3/uL 4.4-11.[address] [facility] 12 Lead EKGon 04-09-2025 12 Lead EKG Normal [facility] Basic Metabolic Profile (BMP )on 04-09-2025 BUN/CRE 37.7 RATIO High 10-20 [facility] Comment on above: Performed By: #### L 100.0100, L500.2500, L501.2300, L501.5200 ####[facility] [address] [place], [address] Calcium [Mass/Vol] 8.4 mg/dL Normal 7.6-11.[address] [facility] Comment on above: Performed By: #### L 100.0100, L500.2500, L501.2300, L501.5200 ####[facility] [address] [place], [address] Chloride [Moles/Vol] 92 mmol/L Low 98-108 [facility] Comment on above: Performed By: #### L 100.0100, L500.2500, L501.2300, L501.5200 ####[facility] [address] [place], [address] CO2 [Moles/Vol] 31.9 mmol/L Normal 21.0-32.0 [facility] Comment on above: Performed By: #### L 100.0100, L500.2500, L501.2300, L501.5200 ####[facility] [address] [place], [address] Creatinine [Mass/Vol] 1.95 mg/dL High 0.70-1.20 [facility] Comment on above: Performed By: #### L 100.0100, L500.2500, L501.2300, L501.5200 ####[facility] [address] [place], [address] ECRCL 27.26 ml/min Low 50-250 [facility] Comment on above: Performed By: #### L 100.0100, L500.2500, L501.2300, L501.5200 ####[facility] [address] [place], [address] GAP 12 Normal 5-15 [facility] Comment on above: Performed By: #### L 100.0100, L500.2500, L501.2300, L501.5200 ####[facility] [address] [place], [address] GFR/1.73 sq M.predicted among non-blacks MDRD (S/P/Bld) [Vol rate/Area] 34 mL/min/{1.73_m2} Low >60 [facility] Comment on above: Result Comment: mL/m in/1.73m2 CKD-EPI Creatinine Equation (2020) Performed By: #### L 100.0100, L500.2500, L501.2300, L501.5200 ####[facility] [address] [place], [address] Glucose [Mass/Vol] 232 mg/dL High 70-[address] [facility] Comment on above: Performed By: #### L 100.0100, L500.2500, L501.2300, L501.5200 ####[facility] [address] [place], [address] Potassium [Moles/Vol] 3.9 mmol/L Normal 3.3-5.1 [facility] Comment on above: Performed By: #### L 100.0100, L500.2500, L501.2300, L501.5200 ####[facility] [address] [place], [address] Sodium [Moles/Vol] 135 mmol/L Normal 133-[address] [facility] Comment on above: Performed By: #### L 100.0100, L500.2500, L501.2300, L501.5200 ####[facility] [address] [place], [address] Urea nitrogen [Mass/Vol] 74 mg/dL High 4-19 [facility] Comment on above: Performed By: #### L 100.0100, L500.2500, L501.2300, L501.5200 ####[facility] [address] [place], [address] Bedside Glucoseon 04-09-2025 FINGERSTICK GLU 316 mg/dL High 74-106 [facility] Comment on above: Result Comment: KODY GEMENT OF PATIENT CARE PER NURSING PROTOCOL Performed By: #### L 501.080 ####[facility] [address] [place], [address] FINGERSTICK GLU 209 mg/dL High 74-106 [facility] Comment on above: Result Comment: KODY GEMENT OF PATIENT CARE PER NURSING PROTOCOL Performed By: #### L 501.080 ####[facility] [address] [place], [address] FINGERSTICK GLU 273 mg/dL High 74-106 [facility] Comment on above: Result Comment: KODY GEMENT OF PATIENT CARE PER NURSING PROTOCOL Performed By: #### L 501.080 ####[facility] [address] [place], [address] CBC W/Diff, Automatedon 08- Absolute Lymph 0.19 X10 3/uL Low 0.83-4.51 [facility] Comment on above: Performed By: #### L 100.0100, L500.2500, L501.2300, L501.5200 ####[facility] [address] [place], [address] Absolute Neut 6.3 X10 3/uL Normal 2.0-7.7 [facility] Comment on above: Performed By: #### L 100.0100, L500.2500, L501.2300, L501.5200 ####[facility] [address] [place], [address] Basophils/100 WBC (Bld) 0.1 % Normal 0-[address] [facility] Comment on above: Performed By: #### L 100.0100, L500.2500, L501.2300, L501.5200 ####[facility] [address] [place], [address] Eosinophils/100 WBC (Bld) 0.0 % Normal 0-5 [facility] Comment on above: Performed By: #### L 100.0100, L500.2500, L501.2300, L501.5200 ####[facility] [address] [place], [address] Erythrocyte distribution width (RBC) [Ratio] 16.9 % High 11.6-14.6 [facility] Comment on above: Performed By: #### L 100.0100, L500.2500, L501.2300, L501.5200 ####[facility] [address] [place], [address] Hematocrit (Bld) [Volume fraction] 27.7 % Low 40-54 [facility] Comment on above: Performed By: #### L 100.0100, L500.2500, L501.2300, L501.5200 ####[facility] [address] [place], [address] Hemoglobin (Bld) [Mass/Vol] 8.6 g/dL Low 13.0-16.5 [facility] Comment on above: Performed By: #### L 100.0100, L500.2500, L501.2300, L501.5200 ####[facility] [address] [place], [address] IG% 0.600 Normal 0.0-0.9 [facility] Comment on above: Result Comment: IG% - Immature Granulocytes (promyelocytes, myelocytes andmetamyelocytes) > 1% indicates that a LEFT SHIFT is Present. Performed By: #### L 100.0100, L500.2500, L501.2300, L501.5200 ####[facility] [address] [place], [address] Lymphocytes/100 WBC (Bld) 2.8 % Low 19-41 [facility] Comment on above: Performed By: #### L 100.0100, L500.2500, L501.2300, L501.5200 ####[facility] [address] [place], [address] MCH (RBC) [Entitic mass] 27.0 pg Normal 27.0-32.0 [facility] Comment on above: Performed By: #### L 100.0100, L500.2500, L501.2300, L501.5200 ####[facility] [address] [place], [address] MCHC (RBC) [Mass/Vol] 31.0 g/dL Low 32-36 [facility] Comment on above: Performed By: #### L 100.0100, L500.2500, L501.2300, L501.5200 ####[facility] [address] [place], [address] MCV (RBC) [Entitic vol] 87.1 fL Normal 80-[address] [facility] Comment on above: Performed By: #### L 100.0100, L500.2500, L501.2300, L501.5200 ####[facility] [address] [place], [address] Monocytes/100 WBC (Bld) 4.7 % Normal 0-[address] [facility] Comment on above: Performed By: #### L 100.0100, L500.2500, L501.2300, L501.5200 ####[facility] [address] [place], [address] Neutrophils/100 WBC (Bld) 91.8 % High 47-70 [facility] Comment on above: Performed By: #### L 100.0100, L500.2500, L501.2300, L501.5200 ####[facility] [address] [place], [address] Nucleated RBC (Bld) [#/Vol] 0.3 10*3/uL Normal 0-5 [facility] Comment on above: Performed By: #### L 100.0100, L500.2500, L501.2300, L501.5200 ####[facility] [address] [place], [address] Platelet mean volume (Bld) [Entitic vol] 10.1 fL Normal 6.2-12.0 [facility] Comment on above: Performed By: #### L 100.0100, L500.2500, L501.2300, L501.5200 ####[facility] [address] [place], [address] Platelets (Bld) [#/Vol] 203 10*3/uL Normal 150-450 [facility] Comment on above: Performed By: #### L 100.0100, L500.2500, L501.2300, L501.5200 ####[facility] [address] [place], [address] RBC (Bld) [#/Vol] 3.18 10*6/uL Low 4.6-6.2 [facility] Comment on above: Performed By: #### L 100.0100, L500.2500, L501.2300, L501.5200 ####[facility] [address] [place], [address] RDW SD 53.1 fl High 35.1-43.9 [facility] Comment on above: Performed By: #### L 100.0100, L500.2500, L501.2300, L501.5200 ####[facility] [address] [place], [address] WBC (Bld) [#/Vol] 6.9 10*3/uL Normal 4.4-11.[address] [facility] Comment on above: Performed By: #### L 100.0100, L500.2500, L501.2300, L501.5200 ####[facility] [address] [place], [address] CVS/PACEMAKERon 04-09-2025 CVS/PACEMAKER Normal [facility] Chest 1 View (Portable)on Chest 1 View (Portable) Normal [facility] Electrocardiogram reportOrde red By: Orly Mitchell on 04-09-2025 EKG study [facility] Work Phone: Magnesiumon 04-09-2025 Magnesium [Mass/Vol] 2.2 mg/dL Normal 1.5-2.2 [facility] Comment on above: Performed By: #### L 100.0100, L500.2500, L501.2300, L501.5200 ####[facility] [address] [place], [address] Magnesium measurement (mass/ volume)Ordered By: Nicola Roman on 04-09-2025 Magnesium (Unsp spec) [Mass/Vol] 2.2 mg/dL 1.5-2.2 [facility] Phosphoruson 04-09-2025 Phosphate [Mass/Vol] 3.9 mg/dL Normal 2.7-4.5 [facility] Comment on above: Performed By: #### L 100.0100, L500.2500, L501.2300, L501.5200 ####[facility] [address] [place], [address] Basic Metabolic Profile (BMP )on 04-08-2025 BUN/CRE 33.8 RATIO High 10-20 [facility] Comment on above: Performed By: #### L 500.2500, L100.0100 ####[facility] [address] [place], [address] Calcium [Mass/Vol] 8.6 mg/dL Normal 7.6-11.[address] [facility] Comment on above: Performed By: #### L 500.2500, L100.0100 ####[facility] [address] [place], [address] Chloride [Moles/Vol] 95 mmol/L Low 98-108 [facility] Comment on above: Performed By: #### L 500.2500, L100.0100 ####[facility] [address] [place], [address] CO2 [Moles/Vol] 32.0 mmol/L Normal 21.0-32.0 [facility] Comment on above: Performed By: #### L 500.2500, L100.0100 ####[facility] [address] [place], [address] Creatinine [Mass/Vol] 1.91 mg/dL High 0.70-1.20 [facility] Comment on above: Performed By: #### L 500.2500, L100.0100 ####[facility] [address] [place], [address] ECRCL 27.84 ml/min Low 50-250 [facility] Comment on above: Performed By: #### L 500.2500, L100.0100 ####[facility] [address] [place], [address] GAP 11 Normal 5-15 [facility] Comment on above: Performed By: #### L 500.2500, L100.0100 ####[facility] [address] [place], [address] GFR/1.73 sq M.predicted among non-blacks MDRD (S/P/Bld) [Vol rate/Area] 35 mL/min/{1.73_m2} Low >60 [facility] Comment on above: Result Comment: mL/m in/1.73m2 CKD-EPI Creatinine Equation (2020) Performed By: #### L 500.2500, L100.0100 ####[facility] [address] [place], [address] Glucose [Mass/Vol] 240 mg/dL High 70-[address] [facility] Comment on above: Performed By: #### L 500.2500, L100.0100 ####[facility] [address] [place], [address] Potassium [Moles/Vol] 4.0 mmol/L Normal 3.3-5.1 [facility] Comment on above: Performed By: #### L 500.2500, L100.0100 ####[facility] [address] [place], [address] Sodium [Moles/Vol] 138 mmol/L Normal 133-[address] [facility] Comment on above: Performed By: #### L 500.2500, L100.0100 ####[facility] [address] [place], [address] Urea nitrogen [Mass/Vol] 65 mg/dL High 4-19 [facility] Comment on above: Performed By: #### L 500.2500, L100.0100 ####[facility] [address] [place], [address] Bedside Glucoseon 04-08-2025 FINGERSTICK GLU 216 mg/dL High 74-106 [facility] Comment on above: Result Comment: KODY GEMENT OF PATIENT CARE PER NURSING PROTOCOL Performed By: #### L 501.080 ####[facility] [address] [place], [address] FINGERSTICK GLU 270 mg/dL High 74-106 [facility] Comment on above: Result Comment: KODY GEMENT OF PATIENT CARE PER NURSING PROTOCOL Performed By: #### L 501.080 ####[facility] [address] [place], [address] FINGERSTICK GLU 199 mg/dL High 74-106 [facility] Comment on above: Result Comment: KODY GEMENT OF PATIENT CARE PER NURSING PROTOCOL Performed By: #### L 501.080 ####[facility] [address] [place], [address] CBC W/Diff, Automatedon 08-2 0-2024 Absolute Lymph 0.24 X10 3/uL Low 0.83-4.51 [facility] Comment on above: Performed By: #### L 500.2500, L100.0100 ####[facility] [address] [place], [address] Absolute Neut 6.3 X10 3/uL Normal 2.0-7.7 [facility] Comment on above: Performed By: #### L 500.2500, L100.0100 ####[facility] [address] [place], [address] Basophils/100 WBC (Bld) 0.0 % Normal 0-[address] [facility] Comment on above: Performed By: #### L 500.2500, L100.0100 ####[facility] [address] [place], [address] Eosinophils/100 WBC (Bld) 0.0 % Normal 0-5 [facility] Comment on above: Performed By: #### L 500.2500, L100.0100 ####[facility] [address] [place], [address] Erythrocyte distribution width (RBC) [Ratio] 17.2 % High 11.6-14.6 [facility] Comment on above: Performed By: #### L 500.2500, L100.0100 ####[facility] [address] [place], [address] Hematocrit (Bld) [Volume fraction] 27.0 % Low 40-54 [facility] Comment on above: Performed By: #### L 500.2500, L100.0100 ####[facility] [address] [place], [address] Hemoglobin (Bld) [Mass/Vol] 8.3 g/dL Low 13.0-16.5 [facility] Comment on above: Performed By: #### L 500.2500, L100.0100 ####[facility] [address] [place], [address] IG% 0.600 Normal 0.0-0.9 [facility] Comment on above: Result Comment: IG% - Immature Granulocytes (promyelocytes, myelocytes andmetamyelocytes) > 1% indicates that a LEFT SHIFT is Present. Performed By: #### L 500.2500, L100.0100 ####[facility] [address] [place], [address] Lymphocytes/100 WBC (Bld) 3.5 % Low 19-41 [facility] Comment on above: Performed By: #### L 500.2500, L100.0100 ####[facility] [address] [place], [address] MCH (RBC) [Entitic mass] 26.9 pg Low 27.0-32.0 [facility] Comment on above: Performed By: #### L 500.2500, L100.0100 ####[facility] [address] [place], [address] MCHC (RBC) [Mass/Vol] 30.7 g/dL Low 32-36 [facility] Comment on above: Performed By: #### L 500.2500, L100.0100 ####[facility] [address] [place], [address] MCV (RBC) [Entitic vol] 87.4 fL Normal 80-[address] [facility] Comment on above: Performed By: #### L 500.2500, L100.0100 ####[facility] [address] [place], [address] Monocytes/100 WBC (Bld) 4.5 % Normal 0-[address] [facility] Comment on above: Performed By: #### L 500.2500, L100.0100 ####[facility] [address] [place], [address] Neutrophils/100 WBC (Bld) 91.4 % High 47-70 [facility] Comment on above: Performed By: #### L 500.2500, L100.0100 ####[facility] [address] [place], [address] Nucleated RBC (Bld) [#/Vol] 0 10*3/uL Normal 0-5 [facility] Comment on above: Performed By: #### L 500.2500, L100.0100 ####[facility] [address] [place], [address] Platelet mean volume (Bld) [Entitic vol] 10.7 fL Normal 6.2-12.0 [facility] Comment on above: Performed By: #### L 500.2500, L100.0100 ####[facility] [address] [place], [address] Platelets (Bld) [#/Vol] 192 10*3/uL Normal 150-450 [facility] Comment on above: Performed By: #### L 500.2500, L100.0100 ####[facility] [address] [place], [address] RBC (Bld) [#/Vol] 3.09 10*6/uL Low 4.6-6.2 [facility] Comment on above: Performed By: #### L 500.2500, L100.0100 ####[facility] [address] [place], [address] RDW SD 54.2 fl High 35.1-43.9 [facility] Comment on above: Performed By: #### L 500.2500, L100.0100 ####[facility] [address] [place], [address] WBC (Bld) [#/Vol] 6.9 10*3/uL Normal 4.4-11.[address] [facility] Comment on above: Performed By: #### L 500.2500, L100.0100 ####[facility] [address] [place], [address] Consultation - Cardiologyon 04-08-2025 Consultation - Cardiology Normal [facility] Basic Metabolic Profile (BMP )on 04-07-2025 BUN/CRE 26.3 RATIO High 10-20 [facility] Comment on above: Performed By: #### L 501.2300, L500.2500 ####[facility] [address] [place], [address] Calcium [Mass/Vol] 8.8 mg/dL Normal 7.6-11.[address] [facility] Comment on above: Performed By: #### L 501.2300, L500.2500 ####[facility] [address] [place], [address] Chloride [Moles/Vol] 96 mmol/L Low 98-108 [facility] Comment on above: Performed By: #### L 501.2300, L500.2500 ####[facility] [address] [place], [address] CO2 [Moles/Vol] 29.8 mmol/L Normal 21.0-32.0 [facility] Comment on above: Performed By: #### L 501.2300, L500.2500 ####[facility] [address] [place], [address] Creatinine [Mass/Vol] 2.21 mg/dL High 0.70-1.20 [facility] Comment on above: Performed By: #### L 501.2300, L500.2500 ####[facility] [address] [place], [address] ECRCL 24.06 ml/min Low 50-250 [facility] Comment on above: Performed By: #### L 501.2300, L500.2500 ####[facility] [address] [place], [address] GAP 11 Normal 5-15 [facility] Comment on above: Performed By: #### L 501.2300, L500.2500 ####[facility] [address] [place], [address] GFR/1.73 sq M.predicted among non-blacks MDRD (S/P/Bld) [Vol rate/Area] 29 mL/min/{1.73_m2} Low >60 [facility] Comment on above: Result Comment: mL/m in/1.73m2 CKD-EPI Creatinine Equation (2020) Performed By: #### L 501.2300, L500.2500 ####[facility] [address] [place], [address] Glucose [Mass/Vol] 171 mg/dL High 70-[address] [facility] Comment on above: Performed By: #### L 501.2300, L500.2500 ####[facility] [address] [place], [address] Potassium [Moles/Vol] 4.6 mmol/L Normal 3.3-5.1 [facility] Comment on above: Performed By: #### L 501.2300, L500.2500 ####[facility] [address] [place], [address] Sodium [Moles/Vol] 137 mmol/L Normal 133-[address] [facility] Comment on above: Performed By: #### L 501.2300, L500.2500 ####[facility] [address] [place], [address] Urea nitrogen [Mass/Vol] 58 mg/dL High -19 [facility] Comment on above: Performed By: #### L 501.2300, L500.2500 ####[facility] [address] [place], [address] Bedside Glucoseon 04-07-2025 FINGERSTICK GLU 272 mg/dL High 74-106 [facility] Comment on above: Result Comment: KODY GEMENT OF PATIENT CARE PER NURSING PROTOCOL Performed By: #### L 501.080 ####[facility] [address] [place], [address] FINGERSTICK GLU 249 mg/dL High 74-106 [facility] Comment on above: Result Comment: KODY GEMENT OF PATIENT CARE PER NURSING PROTOCOL Performed By: #### L 501.080 ####[facility] [address] [place], [address] FINGERSTICK GLU 303 mg/dL High 74-106 [facility] Comment on above: Result Comment: KODY GEMENT OF PATIENT CARE PER NURSING PROTOCOL Performed By: #### L 501.080 ####[facility] [address] [place], [address] FINGERSTICK GLU 162 mg/dL High 74-106 [facility] Comment on above: Result Comment: KODY GEMENT OF PATIENT CARE PER NURSING PROTOCOL Performed By: #### L 501.080 ####[facility] [address] [place], [address] CBC W/Diff, Automatedon 08- Absolute Lymph 0.20 X10 3/uL Low 0.83-4.51 [facility] Comment on above: Performed By: #### L 100.0100 ####[facility] [address] [place], [address] Absolute Neut 5.9 X10 3/uL Normal 2.0-7.7 [facility] Comment on above: Performed By: #### L 100.0100 ####[facility] [address] [place], [address] Basophils/100 WBC (Bld) 0.2 % Normal 0-[address] [facility] Comment on above: Performed By: #### L 100.0100 ####[facility] [address] [place], [address] Eosinophils/100 WBC (Bld) 0.0 % Normal 0-5 [facility] Comment on above: Performed By: #### L 100.0100 ####[facility] [address] [place], [address] Erythrocyte distribution width (RBC) [Ratio] 17.1 % High 11.6-14.6 [facility] Comment on above: Performed By: #### L 100.0100 ####[facility] [address] [place], [address] Hematocrit (Bld) [Volume fraction] 25.6 % Low 40-54 [facility] Comment on above: Performed By: #### L 100.0100 ####[facility] [address] [place], [address] Hemoglobin (Bld) [Mass/Vol] 8.0 g/dL Low 13.0-16.5 [facility] Comment on above: Performed By: #### L 100.0100 ####[facility] [address] [place], [address] IG% 1.400 High 0.0-0.9 [facility] Comment on above: Result Comment: IG% - Immature Granulocytes (promyelocytes, myelocytes andmetamyelocytes) > 1% indicates that a LEFT SHIFT is Present. Performed By: #### L 100.0100 ####[facility] [address] [place], [address] Lymphocytes/100 WBC (Bld) 3.1 % Low 19-41 [facility] Comment on above: Performed By: #### L 100.0100 ####[facility] [address] [place], [address] MCH (RBC) [Entitic mass] 27.0 pg Normal 27.0-32.0 [facility] Comment on above: Performed By: #### L 100.0100 ####[facility] [address] [place], [address] MCHC (RBC) [Mass/Vol] 31.3 g/dL Low 32-36 [facility] Comment on above: Performed By: #### L 100.0100 ####[facility] [address] [place], [address] MCV (RBC) [Entitic vol] 86.5 fL Normal 80-[address] [facility] Comment on above: Performed By: #### L 100.0100 ####[facility] [address] [place], [address] Monocytes/100 WBC (Bld) 2.5 % Normal 0-[address] [facility] Comment on above: Performed By: #### L 100.0100 ####[facility] [address] [place], [address] Neutrophils/100 WBC (Bld) 92.8 % High 47-70 [facility] Comment on above: Performed By: #### L 100.0100 ####[facility] [address] [place], [address] Nucleated RBC (Bld) [#/Vol] 0 10*3/uL Normal 0-5 [facility] Comment on above: Performed By: #### L 100.0100 ####[facility] [address] [place], [address] Platelet mean volume (Bld) [Entitic vol] 10.4 fL Normal 6.2-12.0 [facility] Comment on above: Performed By: #### L 100.0100 ####[facility] [address] [place], [address] Platelets (Bld) [#/Vol] 189 10*3/uL Normal 150-450 [facility] Comment on above: Performed By: #### L 100.0100 ####[facility] [address] [place], [address] RBC (Bld) [#/Vol] 2.96 10*6/uL Low 4.6-6.2 [facility] Comment on above: Performed By: #### L 100.0100 ####[facility] [address] [place], [address] RDW SD 53.1 fl High 35.1-43.9 [facility] Comment on above: Performed By: #### L 100.0100 ####[facility] [address] [place], [address] WBC (Bld) [#/Vol] 6.4 10*3/uL Normal 4.4-11.[address] [facility] Comment on above: Performed By: #### L 100.0100 ####[facility] [address] [place], [address] Electrocardiogram reportOrde red By: Issa Looney on 04-07-2025 EKG study [facility] Work Phone: Phosphoruson 04-07-2025 Phosphate [Mass/Vol] 4.6 mg/dL High 2.7-4.5 [facility] Comment on above: Performed By: #### L 501.2300, L500.2500 ####[facility] [address] [place], [address] Bedside Glucoseon 04-06-2025 FINGERSTICK GLU 378 mg/dL High 74-106 [facility] Comment on above: Result Comment: KODY GEMENT OF PATIENT CARE PER NURSING PROTOCOL Performed By: #### L 501.080 ####[facility] [address] [place], [address] FINGERSTICK GLU 168 mg/dL High [address] [place] [address] Comment on above: Result Comment: KODY GEMENT OF PATIENT CARE PER NURSING PROTOCOL Performed By: #### L 501.080 ####[facility] [address] [place], [address] FINGERSTICK GLU 140 mg/dL High [facility] Comment on above: Result Comment: KODY GEMENT OF PATIENT CARE PER NURSING PROTOCOL Performed By: #### L 501.080 ####[facility] [address] [place], [address] FINGERSTICK GLU 116 mg/dL High [facility] Comment on above: Result Comment: KODY GEMENT OF PATIENT CARE PER NURSING PROTOCOL Performed By: #### L 501.080 ####[facility] [address] [place], [address] FINGERSTICK GLU 112 mg/dL High [facility] Comment on above: Result Comment: KODY GEMENT OF PATIENT CARE PER NURSING PROTOCOL Performed By: #### L 501.080 ####[facility] [address] [place], [address] Bilirubin, totalOrdered By: Nicola Madison on 04-06-2025 Bilirubin [Mass/Vol] 0.40 mg/dL 0.00-1.30 [facility] CBC W/Diff, Automatedon 03-20 Absolute Lymph 0.50 X10 3/uL Low 0.83-4.51 [facility] Comment on above: Performed By: #### L 100.0100 ####[facility] [address] [place], [address] Absolute Neut 6.4 X10 3/uL Normal 2.0-7.7 [facility] Comment on above: Performed By: #### L 100.0100 ####[facility] [address] [place], [address] Basophils/100 WBC (Bld) 0.5 % Normal 0-[address] [facility] Comment on above: Performed By: #### L 100.0100 ####[facility] [address] [place], [address] Eosinophils/100 WBC (Bld) 0.5 % Normal 0-5 [facility] Comment on above: Performed By: #### L 100.0100 ####[facility] [address] [place], [address] Erythrocyte distribution width (RBC) [Ratio] 16.8 % High 11.6-14.6 [facility] Comment on above: Performed By: #### L 100.0100 ####[facility] [address] [place], [address] Hematocrit (Bld) [Volume fraction] 26.3 % Low 40-54 [facility] Comment on above: Performed By: #### L 100.0100 ####[facility] [address] [place], [address] Hemoglobin (Bld) [Mass/Vol] 7.9 g/dL Low 13.0-16.5 [facility] Comment on above: Performed By: #### L 100.0100 ####[facility] [address] [place], [address] IG% 0.600 Normal 0.0-0.9 [facility] Comment on above: Result Comment: IG% - Immature Granulocytes (promyelocytes, myelocytes andmetamyelocytes) > 1% indicates that a LEFT SHIFT is Present. Performed By: #### L 100.0100 ####[facility] [address] [place], [address] Lymphocytes/100 WBC (Bld) 6.4 % Low 19-41 [facility] Comment on above: Performed By: #### L 100.0100 ####[facility] [address] [place], [address] MCH (RBC) [Entitic mass] 26.9 pg Low 27.0-32.0 [facility] Comment on above: Performed By: #### L 100.0100 ####[facility] [address] [place], [address] MCHC (RBC) [Mass/Vol] 30.0 g/dL Low 32-36 [facility] Comment on above: Performed By: #### L 100.0100 ####[facility] [address] [place], [address] MCV (RBC) [Entitic vol] 89.5 fL Normal 80-[address] [facility] Comment on above: Performed By: #### L 100.0100 ####[facility] [address] [place], [address] Monocytes/100 WBC (Bld) 10.1 % High 0-[address] [facility] Comment on above: Performed By: #### L 100.0100 ####[facility] [address] [place], [address] Neutrophils/100 WBC (Bld) 81.9 % High 47-70 [facility] Comment on above: Performed By: #### L 100.0100 ####[facility] [address] [place], [address] Nucleated RBC (Bld) [#/Vol] 0 10*3/uL Normal 0-5 [facility] Comment on above: Performed By: #### L 100.0100 ####[facility] [address] [place], [address] Platelet mean volume (Bld) [Entitic vol] 10.4 fL Normal 6.2-12.0 [facility] Comment on above: Performed By: #### L 100.0100 ####[facility] [address] [place], [address] Platelets (Bld) [#/Vol] 178 10*3/uL Normal 150-450 [facility] Comment on above: Performed By: #### L 100.0100 ####[facility] [address] [place], [address] RBC (Bld) [#/Vol] 2.94 10*6/uL Low 4.6-6.2 [facility] Comment on above: Performed By: #### L 100.0100 ####[facility] [address] [place], [address] RDW SD 54.7 fl High 35.1-43.9 [facility] Comment on above: Performed By: #### L 100.0100 ####[facility] [address] [place], [address] WBC (Bld) [#/Vol] 7.8 10*3/uL Normal 4.4-11.[address] [facility] Comment on above: Performed By: #### L 100.0100 ####[facility] [address] [place], [address] Chest 1 View (Portable)on Chest 1 View (Portable) Normal [facility] Comprehensive Metabolic Prof evita 04-06-2025 Albumin [Mass/Vol] 3.3 g/dL Low 3.4-4.[address] [facility] Comment on above: Performed By: #### L 503.7505, L500.4050, L501.2300 ####[facility] [address] [place], [address] Albumin/Globulin [Mass ratio] 0.9 {ratio} Normal 0.9-2.4 [facility] Comment on above: Performed By: #### L 503.7505, L500.4050, L501.2300 ####[facility] [address] [place], [address] ALK PHOS 70 U/L Normal 40-129 [facility] Comment on above: Performed By: #### L 503.7505, L500.4050, L501.2300 ####[facility] [address] [place], [address] ALT [Catalytic activity/Vol] 13 U/L Normal <=46 [facility] Comment on above: Performed By: #### L 503.7505, L500.4050, L501.2300 ####[facility] [address] [place], [address] AST [Catalytic activity/Vol] 19 U/L Normal <=37 [facility] Comment on above: Performed By: #### L 503.7505, L500.4050, L501.2300 ####[facility] [address] [place], [address] Bilirubin [Mass/Vol] 0.40 mg/dL Normal 0.00-1.30 [facility] Comment on above: Performed By: #### L 503.7505, L500.4050, L501.2300 ####[facility] [address] [place], [address] BUN/CRE 22.8 RATIO High 10-20 [facility] Comment on above: Performed By: #### L 503.7505, L500.4050, L501.2300 ####[facility] [address] [place], [address] Calcium [Mass/Vol] 8.8 mg/dL Normal 7.6-11.[address] [facility] Comment on above: Performed By: #### L 503.7505, L500.4050, L501.2300 ####[facility] [address] [place], [address] Chloride [Moles/Vol] 100 mmol/L Normal 98-108 [facility] Comment on above: Performed By: #### L 503.7505, L500.4050, L501.2300 ####[facility] [address] [place], [address] CO2 [Moles/Vol] 27.9 mmol/L Normal 21.0-32.0 [facility] Comment on above: Performed By: #### L 503.7505, L500.4050, L501.2300 ####[facility] [address] [place], [address] Creatinine [Mass/Vol] 2.52 mg/dL High 0.70-1.20 [facility] Comment on above: Performed By: #### L 503.7505, L500.4050, L501.2300 ####[facility] [address] [place], [address] ECRCL 22.79 ml/min Low 50-250 [facility] Comment on above: Performed By: #### L 503.7505, L500.4050, L501.2300 ####[facility] [address] [place], [address] GAP 10 Normal 5-15 [facility] Comment on above: Performed By: #### L 503.7505, L500.4050, L501.2300 ####[facility] [address] [place], [address] GFR/1.73 sq M.predicted among non-blacks MDRD (S/P/Bld) [Vol rate/Area] 25 mL/min/{1.73_m2} Low >60 [facility] Comment on above: Result Comment: mL/m in/1.73m2 CKD-EPI Creatinine Equation (2020) Performed By: #### L 503.7505, L500.4050, L501.2300 ####[facility] [address] [place], [address] Globulin (S) [Mass/Vol] 3.5 g/dL Normal 2.2-4.[address] [facility] Comment on above: Performed By: #### L 503.7505, L500.4050, L501.2300 ####[facility] [address] [place], [address] Glucose [Mass/Vol] 102 mg/dL High 70-[address] [facility] Comment on above: Performed By: #### L 503.7505, L500.4050, L501.2300 ####[facility] [address] [place], [address] Potassium [Moles/Vol] 4.7 mmol/L Normal 3.3-5.1 [facility] Comment on above: Performed By: #### L 503.7505, L500.4050, L501.2300 ####[facility] [address] [place], [address] Sodium [Moles/Vol] 138 mmol/L Normal 133-[address] [facility] Comment on above: Performed By: #### L 503.7505, L500.4050, L501.2300 ####[facility] [address] [place], [address] T PROT 6.8 g/dL Normal 5.9-8.4 [facility] Comment on above: Performed By: #### L 503.7505, L500.4050, L501.2300 ####[facility] [address] [place], [address] Urea nitrogen [Mass/Vol] 58 mg/dL High 4-19 [facility] Comment on above: Performed By: #### L 503.7505, L500.4050, L501.2300 ####[facility] [address] [place], [address] Consultation - Nephrologyon 04-06-2025 Consultation - Nephrology Normal [facility] Kidney [facility] Bladderon 025 Kidney and Bladder Normal [facility] Natriuretic peptide.B prohor igrish N-Terminal [Mass/volume] in Serum or PlasmaOrdered By: Nicola Madison on 04-06-2025 Natriuretic peptide.B prohormone N-Terminal [Mass/Vol] 4038 pg/mL High <1800 [facility] No Panel InformationOrdered By: Nicola Madison on 04-06-2025 19 U/L <38 [facility] Phosphoruson 04-06-2025 Phosphate [Mass/Vol] 5.4 mg/dL High 2.7-4.5 [facility] Comment on above: Performed By: #### L 503.7505, L500.4050, L501.2300 ####[facility] [address] [place], [address] Pro- Brain NATRIURETIC PEPTI Adrienne 04-06-2025 Natriuretic peptide B (Bld) [Mass/Vol] 4038 pg/mL High <=1800 [facility] Comment on above: Result Comment: Hear t Failure Unlikely: < 300 pg/mLHeart Failure Likely< 50 Years: > 450 pg/mL50-75 Years: > 900 pg/mL>75 Years: > 1800 pg/mL Performed By: #### L 503.7505, L500.4050, L501.2300 ####[facility] [facility] [address] [place], [address] Protein+Creatinine Ratio,Uri neon 04-06-2025 PROT:CRE RATIO 1660 mg/g CRE High 0-200 [facility] Comment on above: Performed By: #### L 501.0900 ####[facility] [address] [place], [address] UR CREAT 32.10 mg/dL Low 39.00-259. 00 [facility] Comment on above: Performed By: #### L 501.0900 ####[facility] [address] [place], [address] RESPIRATORY PANEL MOLECULARo n 04-06-2025 RP PANEL Normal [facility] Comment on above: Performed By: #### M 100.638 ####[facility] [address] [place], [address] Random urine creatinine kingsley urement (mass/volume)Ordered By: Renae Sarabia on 04-06-2025 Creatinine Unsp time (U) [Mass/Vol] 32.10 mg/dL Low 39.00-259. 00 [facility] Respiratory pathogens detect ion panel by molecular detection methodOrdered By: Nicola Madison on 04-06-2025 Respiratory pathogens DNA and RNA panel BRYAN+probe (Resp) [facility] Serum globulin measurementOr dered By: Nicola Madison on 04-06-2025 Globulin (S) [Mass/Vol] 3.5 g/dL 2.2-4.[address] [facility] Serum or plasma alanine ortiz otransferase (ALT) measurementOrdered By: Nicola Madison on 04-06-2025 ALT [Catalytic activity/Vol] 13 U/L <47 [facility] Serum or plasma albumin kingsley urement (mass/volume)Ordered By: Nicola Madison on 04-06-2025 Albumin [Mass/Vol] 3.3 g/dL Low 3.4-4.[address] [facility] Serum or plasma albumin/glob ulin mass ratioOrdered By: Nicola Madison on 04-06-2025 Albumin/Globulin [Mass ratio] 0.9 {ratio} 0.9-2.4 [facility] Serum or plasma alkaline roosevelt sphatase measurementOrdered By: Nicola Madison on 04-06-2025 ALP [Catalytic activity/Vol] 70 U/L 40-129 [facility] Total proteinOrdered By: Jacob Madison on 04-06-2025 Protein [Mass/Vol] 6.8 g/dL 5.9-8.[address] [facility] Urine protein measurement (m ass/volume)Ordered By: Renae Sarabia on 04-06-2025 Protein (U) [Mass/Vol] 53.3 mg/dL High 0.0-12.0 [facility] Comment on above: Performed By: #### L 501.0900 ####[facility] [address] [place], [address] Urine protein/creatinine mas s ratioOrdered By: Renae Sarabia on 04-06-2025 Protein/Creatinine (U) [Mass ratio] 1660 mg/g CRE High 0-200 [facility] 12 Lead EKGon 04-05-2025 12 Lead EKG Normal [facility] Absolute lymphocyte countOrd ered By: Ld Hayes on 04-05-2025 Lymphocytes Auto (Unsp spec) [#/Vol] 0.64 10*3/uL Low 0.83-4.51 [facility] Anion gap in Serum or Plasma Ordered By: Ld Hayes on 04-05-2025 Anion gap [Moles/Vol] 11 mmol/L 5-15 [facility] Assessment of wrist artery p atency prior to arterial punctureOrdered By: Nicola Madison on 04-05-2025 Arterial patency Wrist artery --pre arterial puncture Positive [facility] Automated lymphocyte count a s percentage of total leukocytesOrdered By: Ld Hayes on 04-05-2025 Lymphocytes/100 WBC Auto (Unsp spec) 7.3 % Low 19-41 [facility] BUN/creatinine ratioOrdered By: Ld Hayes on 04-05-2025 Urea nitrogen/Creatinine [Mass ratio] 23.2 mg/mg High 10-20 [facility] Basic Metabolic Profile (BMP )on 04-05-2025 BUN/CRE 23.2 RATIO High 10-20 [facility] Comment on above: Performed By: #### L 100.0100, L500.2500 ####[facility] [address] [place], [address] Calcium [Mass/Vol] 8.8 mg/dL Normal 7.6-11.[address] [facility] Comment on above: Performed By: #### L 100.0100, L500.2500 ####[facility] [address] [place], [address] Chloride [Moles/Vol] 97 mmol/L Low 98-108 [facility] Comment on above: Performed By: #### L 100.0100, L500.2500 ####[facility] [address] [place], [address] CO2 [Moles/Vol] 26.7 mmol/L Normal 21.0-32.0 [facility] Comment on above: Performed By: #### L 100.0100, L500.2500 ####[facility] [address] [place], [address] Creatinine [Mass/Vol] 2.57 mg/dL High 0.70-1.20 [facility] Comment on above: Performed By: #### L 100.0100, L500.2500 ####[facility] [address] [place], [address] ECRCL 22.62 ml/min Low 50-250 [facility] Comment on above: Performed By: #### L 100.0100, L500.2500 ####[facility] [address] [place], [address] GAP 11 Normal 5-15 [facility] Comment on above: Performed By: #### L 100.0100, L500.2500 ####[facility] [address] [place], [address] GFR/1.73 sq M.predicted among non-blacks MDRD (S/P/Bld) [Vol rate/Area] 25 mL/min/{1.73_m2} Low >60 [facility] Comment on above: Result Comment: mL/m in/1.73m2 CKD-EPI Creatinine Equation (2020) Performed By: #### L 100.0100, L500.2500 ####[facility] [address] [place], [address] Glucose [Mass/Vol] 164 mg/dL High 70-[address] [facility] Comment on above: Performed By: #### L 100.0100, L500.2500 ####[facility] [address] [place], [address] Potassium [Moles/Vol] 5.8 mmol/L High 3.3-5.1 [facility] Comment on above: Result Comment: Hemo lysis present, Results??could be affected.?? Performed By: #### L 100.0100, L500.2500 ####[facility] [address] [place], [address] Sodium [Moles/Vol] 134 mmol/L Normal 133-[address] [facility] Comment on above: Performed By: #### L 100.0100, L500.2500 ####[facility] [address] [place], [address] Urea nitrogen [Mass/Vol] 60 mg/dL High 4-19 [facility] Comment on above: Performed By: #### L 100.0100, L500.2500 ####[facility] [address] [place], [address] Basophil percentageOrdered B y: Ld Le on 04-05-2025 Basophils/100 WBC (Bld) 0.6 % 0-[address] [facility] Bedside Glucoseon 04-05-2025 FINGERSTICK GLU 76 mg/dL Normal 74-106 [facility] Comment on above: Result Comment: KODY GEMENT OF PATIENT CARE PER NURSING PROTOCOL Performed By: #### L 501.080 ####[facility] [address] [place], [address] FINGERSTICK GLU 147 mg/dL High 74-106 [facility] Comment on above: Result Comment: KODY GEMENT OF PATIENT CARE PER NURSING PROTOCOL Performed By: #### L 501.080 ####[facility] [address] [place], [address] Bilirubin Test strip Ql (U)O rdered By: Nicola Madison on 04-05-2025 Bilirubin Ql (U) Negative Negative [facility] Positive Normal [facility] Comment on above: Performed By: #### L 9000.0800 ####[facility] [address] [place], [address] Base excess Calc (Bld) [Moles/Vol] 7 mmol/L High -2 to +2 [facility] Comment on above: Performed By: #### L 9000.0800 ####[facility] [address] [place], [address] Blood Gas Type ART Normal [facility] Comment on above: Performed By: #### L 9000.0800 ####[facility] [address] [place], [address] CO2 [Moles/Vol] 34 mmol/L Normal [facility] Comment on above: Performed By: #### L 9000.0800 ####[facility] [address] [place], [address] FI02 6.0 Normal [facility] Comment on above: Performed By: #### L 9000.0800 ####[facility] [address] [place], [address] HCO3 (Bld) [Moles/Vol] 32.4 mmol/L High 22-[address] [facility] Comment on above: Performed By: #### L 9000.0800 ####[facility] [address] [place], [address] Mode Not entered Normal [facility] Comment on above: Performed By: #### L 9000.0800 ####[facility] [address] [place], [address] O2 Delivery Dev Cannula Normal [facility] Comment on above: Performed By: #### L 9000.0800 ####[facility] [address] [place], [address] pCO2 57.1 mmHg High 35-45 [facility] Comment on above: Performed By: #### L 9000.0800 ####[facility] [address] [place], [address] pH (Bld) 7.36 [pH] Normal 7.35-7.45 [facility] Comment on above: Performed By: #### L 9000.0800 ####[facility] [address] [place], [address] PO2 71 mmHG Low 75-100 [facility] Comment on above: Performed By: #### L 9000.0800 ####[facility] [address] [place], [address] SITE R Radial Normal [facility] Comment on above: Performed By: #### L 9000.0800 ####[facility] [address] [place], [address] SO2 93 Low 95-99 [facility] Comment on above: Performed By: #### L 9000.0800 ####[facility] [address] [place], [address] Blood base excess determinat ionOrdered By: Nicola Madison on 04-05-2025 Base excess Calc (BldV) [Moles/Vol] 7 mmol/L High -2-2 [facility] Blood bicarbonate measuremen tOrdered By: Nicola Madison on 04-05-2025 HCO3 (Bld) [Moles/Vol] 32.4 mmol/L High 22-[address] [facility] CBC W/Diff, Automatedon 03-20 Absolute Lymph 0.64 X10 3/uL Low 0.83-4.51 [facility] Comment on above: Performed By: #### L 100.0100, L500.2500 ####[facility] [address] [place], [address] Absolute Neut 7.0 X10 3/uL Normal 2.0-7.7 [facility] Comment on above: Performed By: #### L 100.0100, L500.2500 ####[facility] [address] [place], [address] Basophils/100 WBC (Bld) 0.6 % Normal 0-[address] [facility] Comment on above: Performed By: #### L 100.0100, L500.2500 ####[facility] [address] [place], [address] Eosinophils/100 WBC (Bld) 1.0 % Normal 0-5 [facility] Comment on above: Performed By: #### L 100.0100, L500.2500 ####[facility] [address] [place], [address] Erythrocyte distribution width (RBC) [Ratio] 17.1 % High 11.6-14.6 [facility] Comment on above: Performed By: #### L 100.0100, L500.2500 ####[facility] [address] [place], [address] Hematocrit (Bld) [Volume fraction] 29.0 % Low 40-54 [facility] Comment on above: Performed By: #### L 100.0100, L500.2500 ####[facility] [address] [place], [address] Hemoglobin (Bld) [Mass/Vol] 8.9 g/dL Low 13.0-16.5 [facility] Comment on above: Performed By: #### L 100.0100, L500.2500 ####[facility] [address] [place], [address] IG% 0.700 Normal 0.0-0.9 [facility] Comment on above: Result Comment: IG% - Immature Granulocytes (promyelocytes, myelocytes andmetamyelocytes) > 1% indicates that a LEFT SHIFT is Present. Performed By: #### L 100.0100, L500.2500 ####[facility] [address] [place], [address] Lymphocytes/100 WBC (Bld) 7.3 % Low 19-41 [facility] Comment on above: Performed By: #### L 100.0100, L500.2500 ####[facility] [address] [place], [address] MCH (RBC) [Entitic mass] 27.2 pg Normal 27.0-32.0 [facility] Comment on above: Performed By: #### L 100.0100, L500.2500 ####[facility] [address] [place], [address] MCHC (RBC) [Mass/Vol] 30.7 g/dL Low 32-36 [facility] Comment on above: Performed By: #### L 100.0100, L500.2500 ####[facility] [address] [place], [address] MCV (RBC) [Entitic vol] 88.7 fL Normal 80-[address] [facility] Comment on above: Performed By: #### L 100.0100, L500.2500 ####[facility] [address] [place], [address] Monocytes/100 WBC (Bld) 10.7 % High 0-[address] [facility] Comment on above: Performed By: #### L 100.0100, L500.2500 ####[facility] [address] [place], [address] Neutrophils/100 WBC (Bld) 79.7 % High 47-70 [facility] Comment on above: Performed By: #### L 100.0100, L500.2500 ####[facility] [address] [place], [address] Nucleated RBC (Bld) [#/Vol] 0.2 10*3/uL Normal 0-5 [facility] Comment on above: Performed By: #### L 100.0100, L500.2500 ####[facility] [address] [place], [address] Platelet mean volume (Bld) [Entitic vol] 11.1 fL Normal 6.2-12.0 [facility] Comment on above: Performed By: #### L 100.0100, L500.2500 ####[facility] [address] [place], [address] Platelets (Bld) [#/Vol] 226 10*3/uL Normal 150-450 [facility] Comment on above: Performed By: #### L 100.0100, L500.2500 ####[facility] [address] [place], [address] RBC (Bld) [#/Vol] 3.27 10*6/uL Low 4.6-6.2 [facility] Comment on above: Performed By: #### L 100.0100, L500.2500 ####[facility] [address] [place], [address] RDW SD 55.5 fl High 35.1-43.9 [facility] Comment on above: Performed By: #### L 100.0100, L500.2500 ####[facility] [address] [place], [address] WBC (Bld) [#/Vol] 8.7 10*3/uL Normal 4.4-11.[address] [facility] Comment on above: Performed By: #### L 100.0100, L500.2500 ####[facility] [address] [place], [address] Carbon dioxide, total [Moles /volume] in Central venous bloodOrdered By: Ld Hayes on 04-05-2025 CO2 [Moles/Vol] 26.7 mmol/L 21.0-32.0 [facility] Chest PA and Lateralon 04-05 Chest PA and Lateral Normal [facility] Chloride assayOrdered By: Sky Hayes on 04-05-2025 Chloride [Moles/Vol] 97 mmol/L Low 98-108 [facility] Emergency Department Summary on 04-05-2025 Emergency Department Summary Normal [facility] Eosinophil percentageOrdered By: Ld Hayes on 04-05-2025 Eosinophils/100 WBC (Bld) 1.0 % 0-5 [facility] Erythrocyte distribution wid th ratioOrdered By: Ld Hayes on 04-05-2025 Erythrocyte distribution width (RBC) [Ratio] 17.1 % High 11.6-14.6 [facility] Erythrocyte distribution wid th standard deviationOrdered By: Ld Hayes on 04-05-2025 Erythrocyte distribution width (RBC) [Ratio] 55.5 fl High 35.1-43.9 [facility] Glomerular filtration rate ( GFR) estimation/1.73 sq m using serum, plasma, or whole bOrdered By: Ld Hayes on 04-05-2025 GFR/1.73 sq M.predicted among non-blacks MDRD (S/P/Bld) [Vol rate/Area] 25 mL/min/{1.73_m2} Low >60 [facility] Glucose measurement at bedsi deOrdered By: Ld Hayes on 04-05-2025 Glucose [Mass/Vol] 147 mg/dL High 74-[address] [facility] H AND P Exam - Hospitaliston 04-05-2025 H&P Exam - Hospitalist Normal [facility] Hematocrit Auto (Bld) [Volum e fraction]Ordered By: Ld Hayes on 04-05-2025 Hematocrit (Bld) [Volume fraction] 29.0 % Low 40-54 [facility] Hemoglobin measurementOrdere d By: Ld Hayes on 04-05-2025 Hemoglobin (Bld) [Mass/Vol] 8.9 g/dL Low 13.0-16.5 [facility] Immature granulocytes/100 WB C Auto (Bld)Ordered By: Ld Hayes on 04-05-2025 Immature granulocytes/100 WBC (Bld) 0.700 % 0.0-0.9 [facility] Influenza virus A and B and SARS-CoV-2 (COVID-19) and Respiratory syncytial virus RNAOrdered By: Ld Hayes on 04-05-2025 SARS-CoV-2 (COVID-19) RNA BRYAN+probe Ql (Unsp spec) [facility] Ketones Test strip Ql (U)Ord ered By: Nicola Madison on 04-05-2025 Ketones Ql (U) Negative Negative [facility] L501.4021on 04-05-2025 Trop T High Sen 64 ng/L Invalid Interpretation Code <=22 [facility] Comment on above: Result Comment: Crit ical Result(s) Called AMYERS at: 1805 by:RIVERA??Results read back by same. Performed By: #### L 501.4021 ####[facility] [id number] [place], [place], [id number] M100.678on 04-05-2025 M100.678 SARS-CoV-2 (COVID 19 ) Negative INFLUENZA A Negative INFLUENZA B Negative RSV PCR Negative Normal [facility] Comment on above: Performed By: #### M 100.678 ####[facility] [address] [place], [place], [id number] MCV (mean corpuscular volume ) determinationOrdered By: Ld Hayes on 04-05-2025 MCV (RBC) [Entitic vol] 88.7 fL 80-94 [facility] Magnesiumon 04-05-2025 Magnesium [Mass/Vol] 2.5 mg/dL High 1.5-2.2 [facility] Comment on above: Performed By: #### L 501.5200, L501.9520 ####[facility] [address] [place], [address] Magnesium measurement (mass/ volume)Ordered By: Nicola Madison on 04-05-2025 Magnesium (Unsp spec) [Mass/Vol] 2.5 mg/dL High 1.5-2.2 [facility] Mean corpuscular hemoglobin (MCH) determinationOrdered By: Ld Hayes on 04-05-2025 MCH (RBC) [Entitic mass] 27.2 pg 27.0-32.0 [facility] Measurement, pHOrdered By: Alex Madison on 04-05-2025 pH (Unsp spec) 7.36 [pH] 7.35-7.45 [facility] Monocyte percentageOrdered B y: Ld Hayes on 04-05-2025 Monocytes/100 WBC (Bld) 10.7 % High 0-[address] [facility] Mucus LM Ql (Urine sed)Order ed By: Nicola Madison on 04-05-2025 Mucus Ql (Urine sed) 0 SEEN /hpf [facility] Natriuretic peptide.B prohor girish N-Terminal [Mass/volume] in Serum or PlasmaOrdered By: Ld Hayes on 04-05-2025 Natriuretic peptide.B prohormone N-Terminal [Mass/Vol] 4003 pg/mL High <1800 [facility] Neutrophil percentageOrdered By: Ld Hayes on 04-05-2025 Neutrophils/100 WBC (Bld) 79.7 % High 47-70 [facility] Nitrite Test strip Ql (U)Ord ered By: Nicola Madison on 04-05-2025 Nitrite Ql (U) Negative Negative [facility] No Panel InformationOrdered By: Nicola Madison on 04-05-2025 ART [facility] R Radial [facility] Not entered [facility] Cannula [facility] Platelet countOrdered By: Sky Hayes on 04-05-2025 Platelets (Bld) [#/Vol] 226 10*3/uL 150-450 [facility] Potassium measurement (mass/ volume)Ordered By: Ld Hayes on 04-05-2025 Potassium (Unsp spec) [Mass/Vol] 5.8 mmol/L High 3.3-5.1 [facility] Pro- Brain NATRIURETIC PEPTI Adrienne 04-05-2025 Natriuretic peptide B (Bld) [Mass/Vol] 4003 pg/mL High <=1800 [facility] Comment on above: Result Comment: Hear t Failure Unlikely: < 300 pg/mLHeart Failure Likely< 50 Years: > 450 pg/mL50-75 Years: > 900 pg/mL>75 Years: > 1800 pg/mL Performed By: #### L 503.7505 ####[facility] [address] [place], [address] Protein Test strip Ql (U)Ord ered By: Nicola Madison on 04-05-2025 Protein Ql (U) 100 mg/dl High Negative [facility] RBC Auto (Bld) [#/Vol]Ordere d By: Ld Hayes on 04-05-2025 RBC (Bld) [#/Vol] 3.27 10*6/uL Low 4.6-6.2 [facility] Serum creatinine measurement (mass/volume)Ordered By: Ld Hayes on 04-05-2025 Creatinine [Mass/Vol] 2.57 mg/dL High 0.70-1.20 [facility] Serum glucose measurement (m ass/volume)Ordered By: Ld Hayes on 04-05-2025 Glucose [Mass/Vol] 164 mg/dL High 70-[address] [facility] Serum or plasma calcium kings[place] urement (mass/volume)Ordered By: Ld Hayes on 04-05-2025 Calcium [Mass/Vol] 8.8 mg/dL 7.6-11.[address] [facility] Serum or plasma urea nitroge n measurement (mass/volume)Ordered By: Ld Hayes on 04-05-2025 Urea nitrogen [Mass/Vol] 60 mg/dL High 4-19 [facility] Sodium levelOrdered By: Ld Hayes on 04-05-2025 Sodium [Moles/Vol] 134 mmol/L 133-[address] [facility] Squamous epithelial cells de tection in urine sediment by light microscopyOrdered By: Nicola Madison on 04-05-2025 Epithelial cells.squamous LM Ql (Urine sed) 0-5 SEEN /hpf 0-5 [facility] TSH DL <= 0.005 mIU/L QnOrde red By: Nicola Madison on 04-05-2025 TSH Qn 3.830 uIU/mL 0.300-4.20 0 [facility] Thyroid Stim Hormone (TSH)on 04-05-2025 TSH 3.830 uIU/mL Normal 0.300-4.20 0 [facility] Comment on above: Performed By: #### L 501.5200, L501.9520 ####[facility] [address] [place], [place], [id number] Total carbon dioxide measure mentOrdered By: Nicola Madison on 04-05-2025 CO2 [Moles/Vol] 34 mmol/L [facility] Troponin T HS 2 HRon 025 Trop T High Sen 62 ng/L Invalid Interpretation Code <=22 [facility] Comment on above: Result Comment: Crit ical Result(s) Called LSPARR at:2002 by:RIVERA??Results read back by same. Performed By: #### L 499.0042 ####[facility] [address] [place], [place], [id number] Troponin T HS 4 HRon 025 Trop T High Sen 60 ng/L Invalid Interpretation Code <=22 [facility] Comment on above: Result Comment: Crit ical Result(s) Called MIGUELINA OCHOA at: 2137 by:RIVERA??Results read back by same. Performed By: #### L 499.0043 ####[facility] [address] [place], [place], [id number] Troponin T.cardiac [Mass/vol ume] in Serum or Plasma by High sensitivity methodOrdered By: dL Hayes on 04-05-2025 Troponin T.cardiac High sensitivity method [Mass/Vol] 60 ng/L High <22 [facility] Troponin T.cardiac High sensitivity method [Mass/Vol] 62 ng/L High <22 [facility] Troponin T.cardiac High sensitivity method [Mass/Vol] 64 ng/L High <22 [facility] Urinalysis, Completeon 04-05 BACTERIA 2+ /hpf Normal None Seen [facility] Comment on above: Order Comment: CLEAN CATCH Performed By: #### L 400.0001 ####[facility] [address] [place], [address] EPI,SQUAMOUS 0-5 SEEN Normal 0-5 [facility] Comment on above: Order Comment: CLEAN CATCH Performed By: #### L 400.0001 ####[facility] [address] [place], [address] RBC 0-5 SEEN Normal 0-5 [facility] Comment on above: Order Comment: CLEAN CATCH Performed By: #### L 400.0001 ####[facility] [address] [place], [address] WBC 5-10 SEEN Normal 0-5 [facility] Comment on above: Order Comment: CLEAN CATCH Performed By: #### L 400.0001 ####[facility] [address] [place], [address] Mucus Ql (Urine sed) 0 SEEN Normal [facility] Comment on above: Order Comment: CLEAN CATCH Performed By: #### L 400.0001 ####[facility] [address] [place], [address] Urine clarityOrdered By: Jacob Madison on 04-05-2025 Clarity (U) Clear Clear [facility] Urine color determinationOrd ered By: Nicloa Madison on 04-05-2025 Color (U) Yellow Yellow [facility] Urine glucose detectionOrder ed By: Nicola Madison on 04-05-2025 Glucose Ql (U) Normal mg/dl Normal [facility] Urine leukocyte esterase det ection by dipstickOrdered By: Nicola Madison on 04-05-2025 Leukocyte esterase Test strip Ql (U) 500 /ul High Negative [facility] Urine pHOrdered By: Nicola stack on 04-05-2025 pH (U) 5.0 [pH] 5.0 - 8.0 [facility] Urine sediment bacteria coun t by microscopy (number/high power field)Ordered By: Nicola Madison on 04-05-2025 Bacteria LM.HPF (Urine sed) [#/Area] 2 /[HPF] None Seen [facility] Urine specific gravity measu rementOrdered By: Nicola Madison on 04-05-2025 Specific gravity (U) [Rel density] 1.015 1.002-1.03 0 [facility] Urine urobilinogen measureme ntOrdered By: Nicola Madison on 04-05-2025 Urobilinogen Ql (U) Normal mg/dl Normal [facility] White blood cell (WBC) count Ordered By: Ld Hayes on 04-05-2025 WBC (Bld) [#/Vol] 8.7 10*3/uL 4.4-11.[address] [facility] White blood cell countOrdere d By: Nicola Madison on 04-05-2025 White blood cell count 5-10 SEEN /hpf 0-5 [facility] Absolute lymphocyte countOrd ered By: Leslie Arriaga on 04-02-2025 Lymphocytes Auto (Unsp spec) [#/Vol] 0.87 10*3/uL 0.83-4.51 [facility] Absolute neutrophil countOrd ered By: Leslie Arriaga on 04-02-2025 Neutrophils (Bld) [#/Vol] 6.9 10*3/uL 2.0-7.7 [facility] Anion gap in Serum or Plasma Ordered By: Leslie Arriaga on 04-02-2025 Anion gap [Moles/Vol] 10 mmol/L 5-15 [facility] Automated lymphocyte count a s percentage of total leukocytesOrdered By: Leslie Arriaga on 04-02-2025 Lymphocytes/100 WBC Auto (Unsp spec) 10.0 % Low 19-41 [facility] BUN/creatinine ratioOrdered By: Leslie Arriaga on 08-14-2025 Urea nitrogen/Creatinine [Mass ratio] 16.4 mg/mg 10- [facility] Basic Metabolic Profile (BMP )on 04-02-2025 BUN/CRE 16.4 RATIO Normal - [facility] Comment on above: Order Comment: Comme nts: Home Health to Draw TomorrowHome Health to Draw Tomorrow Performed By: #### L 100.0100, L503.7505, L500.2500 ####[facility] [address] [place], [address] Calcium [Mass/Vol] 9.2 mg/dL Normal 7.6-11.[address] [facility] Comment on above: Order Comment: Comme nts: Home Health to Draw TomorrowHome Health to Draw Tomorrow Performed By: #### L 100.0100, L503.7505, L500.2500 ####[facility] [address] [place], [address] Chloride [Moles/Vol] 99 mmol/L Normal 98-108 [facility] Comment on above: Order Comment: Comme nts: Home Health to Draw TomorrowHome Health to Draw Tomorrow Performed By: #### L 100.0100, L503.7505, L500.2500 ####[facility] [address] [place], [address] CO2 [Moles/Vol] 27.8 mmol/L Normal 21.0-32.0 [facility] Comment on above: Order Comment: Comme nts: Home Health to Draw TomorrowHome Health to Draw Tomorrow Performed By: #### L 100.0100, L503.7505, L500.2500 ####[facility] [address] [place], [address] Creatinine [Mass/Vol] 2.13 mg/dL High 0.70-1.20 [facility] Comment on above: Order Comment: Comme nts: Home Health to Draw TomorrowHome Health to Draw Tomorrow Performed By: #### L 100.0100, L503.7505, L500.2500 ####[facility] [address] [place], [address] GAP 10 Normal 5-15 [facility] Comment on above: Order Comment: Comme nts: Home Health to Draw TomorrowHome Health to Draw Tomorrow Performed By: #### L 100.0100, L503.7505, L500.2500 ####[facility] [address] [place], [address] GFR/1.73 sq M.predicted among non-blacks MDRD (S/P/Bld) [Vol rate/Area] 31 mL/min/{1.73_m2} Low >60 [facility] Comment on above: Order Comment: Comme nts: Home Health to Draw TomorrowHome Health to Draw Tomorrow Result Comment: mL/m in/1.73m2 CKD-EPI Creatinine Equation (2020) Performed By: #### L 100.0100, L503.7505, L500.2500 ####[facility] [address] [place], [address] Glucose [Mass/Vol] 185 mg/dL High 70-[address] [facility] Comment on above: Order Comment: Comme nts: Home Health to Draw TomorrowHome Health to Draw Tomorrow Performed By: #### L 100.0100, L503.7505, L500.2500 ####[facility] [address] [place], [address] Potassium [Moles/Vol] 5.6 mmol/L High 3.3-5.1 [facility] Comment on above: Order Comment: Comme nts: Home Health to Draw TomorrowHome Health to Draw Tomorrow Performed By: #### L 100.0100, L503.7505, L500.2500 ####[facility] [address] [place], [address] Sodium [Moles/Vol] 137 mmol/L Normal 133-[address] [facility] Comment on above: Order Comment: Comme nts: Home Health to Draw TomorrowHome Health to Draw Tomorrow Performed By: #### L 100.0100, L503.7505, L500.2500 ####[facility] [address] [place], [address] Urea nitrogen [Mass/Vol] 35 mg/dL High 4-19 [facility] Comment on above: Order Comment: Comme nts: Home Health to Draw TomorrowHome Health to Draw Tomorrow Performed By: #### L 100.0100, L503.7505, L500.2500 ####[facility] [address] [place], [address] Basophil percentageOrdered B y: Leslie Arriaga on 04-02-2025 Basophils/100 WBC (Bld) 0.3 % 0-[address] [facility] CBC W/Diff, Automatedon 03-20 Absolute Lymph 0.87 X10 3/uL Normal 0.83-4.51 [facility] Comment on above: Order Comment: Comme nts: Home Health to Draw Tomorrow Performed By: #### L 100.0100, L503.7505, L500.2500 ####[facility] [address] [place], [address] Absolute Neut 6.9 X10 3/uL Normal 2.0-7.7 [facility] Comment on above: Order Comment: Comme nts: [facility] Health to Draw Tomorrow Performed By: #### L 100.0100, L503.7505, L500.2500 ####[facility] [address] [place], [address] Basophils/100 WBC (Bld) 0.3 % Normal 0-[address] [facility] Comment on above: Order Comment: Comme nts: [facility] Health to Draw Tomorrow Performed By: #### L 100.0100, L503.7505, L500.2500 ####[facility] [address] [place], [address] Eosinophils/100 WBC (Bld) 0.8 % Normal 0-5 [facility] Comment on above: Order Comment: Comme nts: [facility] Health to Draw Tomorrow Performed By: #### L 100.0100, L503.7505, L500.2500 ####[facility] [address] [place], [address] Erythrocyte distribution width (RBC) [Ratio] 17.1 % High 11.6-14.6 [facility] Comment on above: Order Comment: Comme nts: [facility] Health to Draw Tomorrow Performed By: #### L 100.0100, L503.7505, L500.2500 ####[facility] [address] [place], [address] Hematocrit (Bld) [Volume fraction] 30.6 % Low 40-54 [facility] Comment on above: Order Comment: Comme nts: Home Health to Draw Tomorrow Performed By: #### L 100.0100, L503.7505, L500.2500 ####[facility] [address] [place], [address] Hemoglobin (Bld) [Mass/Vol] 9.2 g/dL Low 13.0-16.5 [facility] Comment on above: Order Comment: Comme nts: Home Health to Draw Tomorrow Performed By: #### L 100.0100, L503.7505, L500.2500 ####[facility] [address] [place], [address] IG% 0.600 Normal 0.0-0.9 [facility] Comment on above: Order Comment: Comme nts: [facility] Health to Draw Tomorrow Result Comment: IG% - Immature Granulocytes (promyelocytes, myelocytes andmetamyelocytes) > 1% indicates that a LEFT SHIFT is Present. Performed By: #### L 100.0100, L503.7505, L500.2500 ####[facility] [address] [place], [address] Lymphocytes/100 WBC (Bld) 10.0 % Low 19-41 [facility] Comment on above: Order Comment: Comme nts: [facility] Health to Draw Tomorrow Performed By: #### L 100.0100, L503.7505, L500.2500 ####[facility] [address] [place], [address] MCH (RBC) [Entitic mass] 26.8 pg Low 27.0-32.0 [facility] Comment on above: Order Comment: Comme nts: [facility] Health to Draw Tomorrow Performed By: #### L 100.0100, L503.7505, L500.2500 ####[facility] [address] [place], [address] MCHC (RBC) [Mass/Vol] 30.1 g/dL Low 32-36 [facility] Comment on above: Order Comment: Comme nts: Home Health to Draw Tomorrow Performed By: #### L 100.0100, L503.7505, L500.2500 ####[facility] [address] [place], [address] MCV (RBC) [Entitic vol] 89.2 fL Normal 80-[address] [facility] Comment on above: Order Comment: Comme nts: Home Health to Draw Tomorrow Performed By: #### L 100.0100, L503.7505, L500.2500 ####[facility] [address] [place], [address] Monocytes/100 WBC (Bld) 8.9 % Normal 0-[address] [facility] Comment on above: Order Comment: Comme nts: Home Health to Draw Tomorrow Performed By: #### L 100.0100, L503.7505, L500.2500 ####[facility] [address] [place], [address] Neutrophils/100 WBC (Bld) 79.4 % High 47-70 [facility] Comment on above: Order Comment: Comme nts: Home Health to Draw Tomorrow Performed By: #### L 100.0100, L503.7505, L500.2500 ####[facility] [address] [place], [address] Nucleated RBC (Bld) [#/Vol] 0 10*3/uL Normal 0-5 [facility] Comment on above: Order Comment: Comme nts: Home Health to Draw Tomorrow Performed By: #### L 100.0100, L503.7505, L500.2500 ####[facility] [address] [place], [address] Platelet mean volume (Bld) [Entitic vol] 10.6 fL Normal 6.2-12.0 [facility] Comment on above: Order Comment: Comme nts: [facility] Health to Draw Tomorrow Performed By: #### L 100.0100, L503.7505, L500.2500 ####[facility] [address] [place], [address] Platelets (Bld) [#/Vol] 210 10*3/uL Normal 150-450 [facility] Comment on above: Order Comment: Comme nts: Home Health to Draw Tomorrow Performed By: #### L 100.0100, L503.7505, L500.2500 ####[facility] [address] [place], [address] RBC (Bld) [#/Vol] 3.43 10*6/uL Low 4.6-6.2 [facility] Comment on above: Order Comment: Comme nts: Home Health to Draw Tomorrow Performed By: #### L 100.0100, L503.7505, L500.2500 ####[facility] [address] [place], [address] RDW SD 55.3 fl High 35.1-43.9 [facility] Comment on above: Order Comment: Comme nts: Home Health to Draw Tomorrow Performed By: #### L 100.0100, L503.7505, L500.2500 ####[facility] [address] [place], [address] WBC (Bld) [#/Vol] 8.7 10*3/uL Normal 4.4-11.[address] [facility] Comment on above: Order Comment: Comme nts: Home Health to Draw Tomorrow Performed By: #### L 100.0100, L503.7505, L500.2500 ####[facility] [address] [place], [address] Carbon dioxide, total [Moles /volume] in Central venous bloodOrdered By: Leslie Arriaga on 04-02-2025 CO2 [Moles/Vol] 27.8 mmol/L 21.0-32.0 [facility] Chloride assayOrdered By: Linsey Arriaga on 04-02-2025 Chloride [Moles/Vol] 99 mmol/L 98-108 [facility] Eosinophil percentageOrdered By: Leslie Arriaga on 04-02-2025 Eosinophils/100 WBC (Bld) 0.8 % 0-5 [facility] Erythrocyte distribution wid th ratioOrdered By: Leslie Arriaga on 04-02-2025 Erythrocyte distribution width (RBC) [Ratio] 17.1 % High 11.6-14.6 [facility] Erythrocyte distribution wid th standard deviationOrdered By: Leslie Arriaga on 04-02-2025 Erythrocyte distribution width (RBC) [Ratio] 55.3 fl High 35.1-43.9 [facility] Glomerular filtration rate ( GFR) estimation/1.73 sq m using serum, plasma, or whole bOrdered By: Leslie Arriaga on 04-02-2025 GFR/1.73 sq M.predicted among non-blacks MDRD (S/P/Bld) [Vol rate/Area] 31 mL/min/{1.73_m2} Low >60 [facility] Comment on above: mL/min/1.73m2 CKD-EP I Creatinine Equation (2020) Hematocrit Auto (Bld) [Volum e fraction]Ordered By: Leslie Arriaga on 04-02-2025 Hematocrit (Bld) [Volume fraction] 30.6 % Low 40-54 [facility] Hemoglobin measurementOrdere d By: Leslie Arriaga on 04-02-2025 Hemoglobin (Bld) [Mass/Vol] 9.2 g/dL Low 13.0-16.5 [facility] Immature granulocytes/100 WB C Auto (Bld)Ordered By: Leslie Arriaga on 04-02-2025 Immature granulocytes/100 WBC (Bld) 0.600 % 0.0-0.9 [facility] Comment on above: IG% - Immature Granu locytes (promyelocytes, myelocytes and metamyelocytes) > 1% indicates that a LEFT SHIFT is Present. MCV (mean corpuscular volume ) determinationOrdered By: Leslie Arriaga on 04-02-2025 MCV (RBC) [Entitic vol] 89.2 fL 80-[address] [facility] Mean corpuscular hemoglobin (MCH) determinationOrdered By: Leslie Arriaga on 04-02-2025 MCH (RBC) [Entitic mass] 26.8 pg Low 27.0-32.0 [facility] Mean corpuscular hemoglobin concentration (MCHC) determinationOrdered By: Leslie Arriaga on 04-02-2025 MCHC (RBC) [Mass/Vol] 30.1 g/dL Low 32-36 [facility] Mean platelet volume determi nationOrdered By: Leslie Arriaga on 04-02-2025 Platelet mean volume (Bld) [Entitic vol] 10.6 fL 6.2-12.0 [facility] Monocyte percentageOrdered B y: Leslie Arriaga on 04-02-2025 Monocytes/100 WBC (Bld) 8.9 % 0-[address] [facility] Natriuretic peptide.B prohor girish N-Terminal [Mass/volume] in Serum or PlasmaOrdered By: Leslie Arriaga on 04-02-2025 Natriuretic peptide.B prohormone N-Terminal [Mass/Vol] 2526 pg/mL High <1800 [facility] Comment on above: Heart Failure Unlike ly: < 300 pg/mLHeart Failure Likely< 50 Years: > 450 pg/mL50-75 Years: > 900 pg/mL>75 Years: > 1800 pg/mL Neutrophil percentageOrdered By: Leslie Arriaga on 04-02-2025 Neutrophils/100 WBC (Bld) 79.4 % High 47-70 [facility] Nucleated red blood cell per centageOrdered By: Leslie Arriaga on 04-02-2025 Nucleated RBC/100 WBC (Bld) [Ratio] 0 % 0-5 [facility] Platelet countOrdered By: Linsey Arriaga on 04-02-2025 Platelets (Bld) [#/Vol] 210 10*3/uL 150-450 [facility] Potassium measurement (mass/ volume)Ordered By: Leslie Arriaga on 04-02-2025 Potassium (Unsp spec) [Mass/Vol] 5.6 mmol/L High 3.3-5.1 [facility] Pro- Brain NATRIURETIC PEPTI Adrienne 04-02-2025 Natriuretic peptide B (Bld) [Mass/Vol] 2526 pg/mL High <=1800 [facility] Comment on above: Order Comment: Comme nts: Home Health to Draw Tomorrow Result Comment: Hear t Failure Unlikely: < 300 pg/mLHeart Failure Likely< 50 Years: > 450 pg/mL50-75 Years: > 900 pg/mL>75 Years: > 1800 pg/mL Performed By: #### L 100.0100, L503.7505, L500.2500 ####[facility] [address] [place], [address] RBC Auto (Bld) [#/Vol]Ordere d By: Leslie Arriaga on 04-02-2025 RBC (Bld) [#/Vol] 3.43 10*6/uL Low 4.6-6.2 [facility] Serum creatinine measurement (mass/volume)Ordered By: Leslie Arriaga on 04-02-2025 Creatinine [Mass/Vol] 2.13 mg/dL High 0.70-1.20 [facility] Serum glucose measurement (m ass/volume)Ordered By: Leslie Arriaga on 04-02-2025 Glucose [Mass/Vol] 185 mg/dL High 70-[address] [facility] Serum or plasma calcium [place] urement (mass/volume)Ordered By: Leslie Arriaga on 04-02-2025 Calcium [Mass/Vol] 9.2 mg/dL 7.6-11.[address] [facility] Serum or plasma urea nitroge n measurement (mass/volume)Ordered By: Leslie Arriaga on 04-02-2025 Urea nitrogen [Mass/Vol] 35 mg/dL High 4-19 [facility] Sodium levelOrdered By: Brian victoria Corina on 04-02-2025 Sodium [Moles/Vol] 137 mmol/L 133-[address] [facility] White blood cell (WBC) count Ordered By: Leslie Arriaga on 04-02-2025 WBC (Bld) [#/Vol] 8.7 10*3/uL 4.4-11.[address] [facility] Absolute lymphocyte countOrd ered By: Tonio Fajardo on 03-18-2025 Lymphocytes Auto (Unsp spec) [#/Vol] 0.88 10*3/uL 0.83-4.51 [facility] Absolute neutrophil countOrd ered By: Tonio Fajardo on 03-18-2025 Neutrophils (Bld) [#/Vol] 5.9 10*3/uL 2.0-7.7 [facility] Anion gap in Serum or Plasma Ordered By: Tonio Fajardo on 03-18-2025 Anion gap [Moles/Vol] 11 mmol/L 5-15 [facility] Automated lymphocyte count a s percentage of total leukocytesOrdered By: Tonio Fajardo on 03-18-2025 Lymphocytes/100 WBC Auto (Unsp spec) 11.2 % Low 19-41 [facility] BUN/creatinine ratioOrdered By: Tnoio Fajardo on 03-18-2025 Urea nitrogen/Creatinine [Mass ratio] 14.8 mg/mg - [facility] Basic Metabolic Profile (BMP )on 03-18-2025 BUN/CRE 14.8 RATIO Normal 06-08 [facility] Comment on above: Performed By: #### L 500.2500, L100.0100 ####[facility] [address] [place], [address] Calcium [Mass/Vol] 9.5 mg/dL Normal 7.6-11.[address] [facility] Comment on above: Performed By: #### L 500.2500, L100.0100 ####[facility] [address] [place], [address] Chloride [Moles/Vol] 99 mmol/L Normal 98-108 [facility] Comment on above: Performed By: #### L 500.2500, L100.0100 ####[facility] [address] [place], [address] CO2 [Moles/Vol] 26.7 mmol/L Normal 21.0-32.0 [facility] Comment on above: Performed By: #### L 500.2500, L100.0100 ####[facility] [address] [place], [address] Creatinine [Mass/Vol] 1.59 mg/dL High 0.70-1.20 [facility] Comment on above: Performed By: #### L 500.2500, L100.0100 ####[facility] [address] [place], [address] GAP 11 Normal 5-15 [facility] Comment on above: Performed By: #### L 500.2500, L100.0100 ####[facility] [address] [place], [address] GFR/1.73 sq M.predicted among non-blacks MDRD (S/P/Bld) [Vol rate/Area] 44 mL/min/{1.73_m2} Low >60 [facility] Comment on above: Result Comment: mL/m in/1.73m2 CKD-EPI Creatinine Equation (2020) Performed By: #### L 500.2500, L100.0100 ####[facility] [address] [place], [address] Glucose [Mass/Vol] 223 mg/dL High 70-[address] [facility] Comment on above: Performed By: #### L 500.2500, L100.0100 ####[facility] [address] [place], [address] Potassium [Moles/Vol] 5.2 mmol/L High 3.3-5.1 [facility] Comment on above: Performed By: #### L 500.2500, L100.0100 ####[facility] [address] [place], [address] Sodium [Moles/Vol] 137 mmol/L Normal 133-[address] [facility] Comment on above: Performed By: #### L 500.2500, L100.0100 ####[facility] [address] [place], [address] Urea nitrogen [Mass/Vol] 24 mg/dL High 4-19 [facility] Comment on above: Performed By: #### L 500.2500, L100.0100 ####[facility] [address] [place], [address] Basophil percentageOrdered B y: Tonio Fajardo on 03-18-2025 Basophils/100 WBC (Bld) 0.5 % 0-[address] [facility] CBC W/Diff, Automatedon 02-19 Absolute Lymph 0.88 X10 3/uL Normal 0.83-4.51 [facility] Comment on above: Performed By: #### L 500.2500, L100.0100 ####[facility] [address] [place], [address] Absolute Neut 5.9 X10 3/uL Normal 2.0-7.7 [facility] Comment on above: Performed By: #### L 500.2500, L100.0100 ####[facility] [address] [place], [address] Basophils/100 WBC (Bld) 0.5 % Normal 0-[address] [facility] Comment on above: Performed By: #### L 500.2500, L100.0100 ####[facility] [address] [place], [address] Eosinophils/100 WBC (Bld) 3.1 % Normal 0-5 [facility] Comment on above: Performed By: #### L 500.2500, L100.0100 ####[facility] [address] [place], [address] Erythrocyte distribution width (RBC) [Ratio] 16.4 % High 11.6-14.6 [facility] Comment on above: Performed By: #### L 500.2500, L100.0100 ####[facility] [address] [place], [address] Hematocrit (Bld) [Volume fraction] 32.6 % Low 40-54 [facility] Comment on above: Performed By: #### L 500.2500, L100.0100 ####[facility] [address] [place], [address] Hemoglobin (Bld) [Mass/Vol] 9.7 g/dL Low 13.0-16.5 [facility] Comment on above: Performed By: #### L 500.2500, L100.0100 ####[facility] [address] [place], [address] IG% 1.100 High 0.0-0.9 [facility] Comment on above: Result Comment: IG% - Immature Granulocytes (promyelocytes, myelocytes andmetamyelocytes) > 1% indicates that a LEFT SHIFT is Present. Performed By: #### L 500.2500, L100.0100 ####[facility] [address] [place], [address] Lymphocytes/100 WBC (Bld) 11.2 % Low 19-41 [facility] Comment on above: Performed By: #### L 500.2500, L100.0100 ####[facility] [address] [place], [address] MCH (RBC) [Entitic mass] 26.8 pg Low 27.0-32.0 [facility] Comment on above: Performed By: #### L 500.2500, L100.0100 ####[facility] [address] [place], [address] MCHC (RBC) [Mass/Vol] 29.8 g/dL Low 32-36 [facility] Comment on above: Performed By: #### L 500.2500, L100.0100 ####[facility] [address] [place], [address] MCV (RBC) [Entitic vol] 90.1 fL Normal 80-[address] [facility] Comment on above: Performed By: #### L 500.2500, L100.0100 ####[facility] [address] [place], [address] Monocytes/100 WBC (Bld) 9.4 % Normal 0-[address] [facility] Comment on above: Performed By: #### L 500.2500, L100.0100 ####[facility] [address] [place], [address] Neutrophils/100 WBC (Bld) 74.7 % High 47-70 [facility] Comment on above: Performed By: #### L 500.2500, L100.0100 ####[facility] [address] [place], [address] Nucleated RBC (Bld) [#/Vol] 0 10*3/uL Normal 0-5 [facility] Comment on above: Performed By: #### L 500.2500, L100.0100 ####[facility] [address] [place], [address] Platelet mean volume (Bld) [Entitic vol] 10.4 fL Normal 6.2-12.0 [facility] Comment on above: Performed By: #### L 500.2500, L100.0100 ####[facility] [address] [place], [address] Platelets (Bld) [#/Vol] 252 10*3/uL Normal 150-450 [facility] Comment on above: Performed By: #### L 500.2500, L100.0100 ####[facility] [address] [place], [address] RBC (Bld) [#/Vol] 3.62 10*6/uL Low 4.6-6.2 [facility] Comment on above: Performed By: #### L 500.2500, L100.0100 ####[facility] [address] [place], [address] RDW SD 53.8 fl High 35.1-43.9 [facility] Comment on above: Performed By: #### L 500.2500, L100.0100 ####[facility] [address] [place], [address] WBC (Bld) [#/Vol] 7.9 10*3/uL Normal 4.4-11.[address] [facility] Comment on above: Performed By: #### L 500.2500, L100.0100 ####[facility] [address] [place], [address] Carbon dioxide, total [Moles /volume] in Central venous bloodOrdered By: Tonio Fajardo on 03-18-2025 CO2 [Moles/Vol] 26.7 mmol/L 21.0-32.0 [facility] Chloride assayOrdered By: Min Fajardo on 03-18-2025 Chloride [Moles/Vol] 99 mmol/L 98-108 [facility] Eosinophil percentageOrdered By: Tonio Fajardo on 03-18-2025 Eosinophils/100 WBC (Bld) 3.1 % 0-5 [facility] Erythrocyte distribution wid th ratioOrdered By: Tonio Fajardo on 03-18-2025 Erythrocyte distribution width (RBC) [Ratio] 16.4 % High 11.6-14.6 [facility] Erythrocyte distribution wid th standard deviationOrdered By: Tonio Fajardo on 03-18-2025 Erythrocyte distribution width (RBC) [Ratio] 53.8 fl High 35.1-43.9 [facility] Glomerular filtration rate ( GFR) estimation/1.73 sq m using serum, plasma, or whole bOrdered By: Tonio Fajardo on 03-18-2025 GFR/1.73 sq M.predicted among non-blacks MDRD (S/P/Bld) [Vol rate/Area] 44 mL/min/{1.73_m2} Low >60 [facility] Comment on above: mL/min/1.73m2 CKD-EP I Creatinine Equation (2020) Hematocrit Auto (Bld) [Volum e fraction]Ordered By: Tonio Fajardo on 03-18-2025 Hematocrit (Bld) [Volume fraction] 32.6 % Low 40-54 [facility] Hemoglobin measurementOrdere d By: Tonio Fajardo on 03-18-2025 Hemoglobin (Bld) [Mass/Vol] 9.7 g/dL Low 13.0-16.5 [facility] Immature granulocytes/100 WB C Auto (Bld)Ordered By: Tonio Fajardo on 03-18-2025 Immature granulocytes/100 WBC (Bld) 1.100 % High 0.0-0.9 [facility] Comment on above: IG% - Immature Granu locytes (promyelocytes, myelocytes and metamyelocytes) > 1% indicates that a LEFT SHIFT is Present. MCV (mean corpuscular volume ) determinationOrdered By: Tonio Fajardo on 03-18-2025 MCV (RBC) [Entitic vol] 90.1 fL 80-[address] [facility] Mean corpuscular hemoglobin (MCH) determinationOrdered By: Tonio Fajardo on 03-18-2025 MCH (RBC) [Entitic mass] 26.8 pg Low 27.0-32.0 [facility] Mean corpuscular hemoglobin concentration (MCHC) determinationOrdered By: Tonio Fajardo 03-18-2025 MCHC (RBC) [Mass/Vol] 29.8 g/dL Low 32-36 [facility] Mean platelet volume determi nationOrdered By: Tonio Fajardo on 03-18-2025 Platelet mean volume (Bld) [Entitic vol] 10.4 fL 6.2-12.0 [facility] Monocyte percentageOrdered B y: Tonio Fajardo on 03-18-2025 Monocytes/100 WBC (Bld) 9.4 % 0-[address] [facility] Neutrophil percentageOrdered By: Tonio Fajardo on 03-18-2025 Neutrophils/100 WBC (Bld) 74.7 % High 47-70 [facility] Nucleated red blood cell per centageOrdered By: Tonio Fajardo on 03-18-2025 Nucleated RBC/100 WBC (Bld) [Ratio] 0 % 0-5 [facility] Platelet countOrdered By: Min Fajardo on 03-18-2025 Platelets (Bld) [#/Vol] 252 10*3/uL 150-450 [facility] Potassium measurement (mass/ volume)Ordered By: Tonio Fajardo on 03-18-2025 Potassium (Unsp spec) [Mass/Vol] 5.2 mmol/L High 3.3-5.1 [facility] RBC Auto (Bld) [#/Vol]Ordere d By: Tonio Fajardo on 03-18-2025 RBC (Bld) [#/Vol] 3.62 10*6/uL Low 4.6-6.2 [facility] Serum creatinine measurement (mass/volume)Ordered By: Tonio Fajardo on 03-18-2025 Creatinine [Mass/Vol] 1.59 mg/dL High 0.70-1.20 [facility] Serum glucose measurement (m ass/volume)Ordered By: Tonio Fajardo on 03-18-2025 Glucose [Mass/Vol] 223 mg/dL High 70-[address] [facility] Serum or plasma calcium [place] urement (mass/volume)Ordered By: Tonio Fajardo on 03-18-2025 Calcium [Mass/Vol] 9.5 mg/dL 7.6-11.[address] [facility] Serum or plasma urea nitroge n measurement (mass/volume)Ordered By: Tonio Fajardo on 03-18-2025 Urea nitrogen [Mass/Vol] 24 mg/dL High - [facility] Sodium levelOrdered By: Tonio Fajardo on 03-18-2025 Sodium [Moles/Vol] 137 mmol/L 133-[address] [facility] White blood cell (WBC) count Ordered By: Tonio Fajardo on 03-18-2025 WBC (Bld) [#/Vol] 7.9 10*3/uL 4.4-11.[address] [facility] Cardiology Visit Reporton Cardiology Visit Report Normal [facility] Emergency Department Summary on 03-15-2025 Emergency Department Summary Normal [facility] Basic Metabolic Profile (BMP )on 03-11-2025 BUN Normal 12-06 [facility] Comment on above: Result Comment: Canc elled via OM: Order cancelled - Patient discharged Performed By: #### L 500.2500, L100.0100 ####[facility] [address] [place], [address] BUN/CRE Normal 10- [facility] Comment on above: Result Comment: Canc elled via OM: Order cancelled - Patient discharged Performed By: #### L 500.2500, L100.0100 ####[facility] [address] [place], [address] Calcium Normal 7.6-11.0 [facility] Comment on above: Result Comment: Canc elled via OM: Order cancelled - Patient discharged Performed By: #### L 500.2500, L100.0100 ####[facility] [address] [place], [address] CL Normal 98-108 [facility] Comment on above: Result Comment: Canc elled via OM: Order cancelled - Patient discharged Performed By: #### L 500.2500, L100.0100 ####[facility] [address] [place], [address] CO2 Normal 21.0-32.0 [facility] Comment on above: Result Comment: Canc elled via OM: Order cancelled - Patient discharged Performed By: #### L 500.2500, L100.0100 ####[facility] [address] [place], [address] CREAT,SERUM Normal 0.70-1.20 [facility] Comment on above: Result Comment: Canc elled via OM: Order cancelled - Patient discharged Performed By: #### L 500.2500, L100.0100 ####[facility] [address] [place], [address] eGFR Normal >60 [facility] Comment on above: Result Comment: Canc elled via OM: Order cancelled - Patient discharged Performed By: #### L 500.2500, L100.0100 ####[facility] [address] [place], [address] GAP Normal 5-15 [facility] Comment on above: Result Comment: Canc elled via OM: Order cancelled - Patient discharged Performed By: #### L 500.2500, L100.0100 ####[facility] [address] [place], [address] GLU Normal 70-99 [facility] Comment on above: Result Comment: Canc elled via OM: Order cancelled - Patient discharged Performed By: #### L 500.2500, L100.0100 ####[facility] [address] [place], [address] Potassium Normal 3.3-5.1 [facility] Comment on above: Result Comment: Canc elled via OM: Order cancelled - Patient discharged Performed By: #### L 500.2500, L100.0100 ####[facility] [address] [place], [address] Basic Metabolic Profile (BMP) Normal 133-145 [facility] Comment on above: Result Comment: Canc elled via OM: Order cancelled - Patient discharged Performed By: #### L 500.2500, L100.0100 ####[facility] [address] [place], [address] CBC W/Diff, Automatedon 07-2 Absolute Neut Normal 2.0-7.7 [facility] Comment on above: Result Comment: Canc elled via OM: Order cancelled - Patient discharged Performed By: #### L 500.2500, L100.0100 ####[facility] [address] [place], [address] HCT Normal 40-54 [facility] Comment on above: Result Comment: Canc elled via OM: Order cancelled - Patient discharged Performed By: #### L 500.2500, L100.0100 ####[facility] [address] [place], [address] HGB Normal 13.0-16.5 [facility] Comment on above: Result Comment: Canc elled via OM: Order cancelled - Patient discharged Performed By: #### L 500.2500, L100.0100 ####[facility] [address] [place], [address] MCH Normal 27.0-32.0 [facility] Comment on above: Result Comment: Canc elled via OM: Order cancelled - Patient discharged Performed By: #### L 500.2500, L100.0100 ####[facility] [address] [place], [address] MCHC Normal 32-36 [facility] Comment on above: Result Comment: Canc elled via OM: Order cancelled - Patient discharged Performed By: #### L 500.2500, L100.0100 ####[facility] [address] [place], [address] MCV Normal 80-94 [facility] Comment on above: Result Comment: Canc elled via OM: Order cancelled - Patient discharged Performed By: #### L 500.2500, L100.0100 ####[facility] [address] [place], [address] NEUT% Normal 47-70 [facility] Comment on above: Result Comment: Canc elled via OM: Order cancelled - Patient discharged Performed By: #### L 500.2500, L100.0100 ####[facility] [address] [place], [address] PLT Normal 150-450 [facility] Comment on above: Result Comment: Canc elled via OM: Order cancelled - Patient discharged Performed By: #### L 500.2500, L100.0100 ####[facility] [address] [place], [address] RBC Normal 4.6-6.2 [facility] Comment on above: Result Comment: Canc elled via OM: Order cancelled - Patient discharged Performed By: #### L 500.2500, L100.0100 ####[facility] [address] [place], [address] RDW CV Normal 11.6-14.6 [facility] Comment on above: Result Comment: Canc elled via OM: Order cancelled - Patient discharged Performed By: #### L 500.2500, L100.0100 ####[facility] [address] [place], [address] RDW SD Normal 35.1-43.9 [facility] Comment on above: Result Comment: Canc elled via OM: Order cancelled - Patient discharged Performed By: #### L 500.2500, L100.0100 ####[facility] [address] [place], [address] WBC Normal 4.4-11.0 [facility] Comment on above: Result Comment: Canc elled via OM: Order cancelled - Patient discharged Performed By: #### L 500.2500, L100.0100 ####[facility] [address] [place], [address] Basic Metabolic Profile (BMP )on 03-10-2025 BUN Normal 4-19 [facility] Comment on above: Result Comment: Canc elled via OM: Order cancelled - Patient discharged Performed By: #### L 100.0100, L500.2500 ####[facility] [address] [place], [address] BUN/CRE Normal 10-20 [facility] Comment on above: Result Comment: Canc elled via OM: Order cancelled - Patient discharged Performed By: #### L 100.0100, L500.2500 ####[facility] [address] [place], [address] Calcium Normal 7.6-11.0 [facility] Comment on above: Result Comment: Canc elled via OM: Order cancelled - Patient discharged Performed By: #### L 100.0100, L500.2500 ####[facility] [address] [place], [address] CL Normal 98-108 [facility] Comment on above: Result Comment: Canc elled via OM: Order cancelled - Patient discharged Performed By: #### L 100.0100, L500.2500 ####[facility] [address] [place], [address] CO2 Normal 21.0-32.0 [facility] Comment on above: Result Comment: Canc elled via OM: Order cancelled - Patient discharged Performed By: #### L 100.0100, L500.2500 ####[facility] [address] [place], [address] CREAT,SERUM Normal 0.70-1.20 [facility] Comment on above: Result Comment: Canc elled via OM: Order cancelled - Patient discharged Performed By: #### L 100.0100, L500.2500 ####[facility] [address] [place], [address] eGFR Normal >60 [facility] Comment on above: Result Comment: Canc elled via OM: Order cancelled - Patient discharged Performed By: #### L 100.0100, L500.2500 ####[facility] [address] [place], [address] GAP Normal 5-15 [facility] Comment on above: Result Comment: Canc elled via OM: Order cancelled - Patient discharged Performed By: #### L 100.0100, L500.2500 ####[facility] [address] [place], [address] GLU Normal 70-99 [facility] Comment on above: Result Comment: Canc elled via OM: Order cancelled - Patient discharged Performed By: #### L 100.0100, L500.2500 ####[facility] [address] [place], [address] Potassium Normal 3.3-5.1 [facility] Comment on above: Result Comment: Canc elled via OM: Order cancelled - Patient discharged Performed By: #### L 100.0100, L500.2500 ####[facility] [address] [place], [address] Basic Metabolic Profile (BMP) Normal 133-145 [facility] Comment on above: Result Comment: Canc elled via OM: Order cancelled - Patient discharged Performed By: #### L 100.0100, L500.2500 ####[facility] [address] [place], [address] CBC W/Diff, Automatedon 07-2 Absolute Neut Normal 2.0-7.7 [facility] Comment on above: Result Comment: Canc elled via OM: Order cancelled - Patient discharged Performed By: #### L 100.0100, L500.2500 ####[facility] [address] [place], [address] HCT Normal 40-54 [facility] Comment on above: Result Comment: Canc elled via OM: Order cancelled - Patient discharged Performed By: #### L 100.0100, L500.2500 ####[facility] [address] [place], [address] HGB Normal 13.0-16.5 [facility] Comment on above: Result Comment: Canc elled via OM: Order cancelled - Patient discharged Performed By: #### L 100.0100, L500.2500 ####[facility] [address] [place], [address] MCH Normal 27.0-32.0 [facility] Comment on above: Result Comment: Canc elled via OM: Order cancelled - Patient discharged Performed By: #### L 100.0100, L500.2500 ####[facility] [address] [place], [address] MCHC Normal 32-36 [facility] Comment on above: Result Comment: Canc elled via OM: Order cancelled - Patient discharged Performed By: #### L 100.0100, L500.2500 ####[facility] [address] [place], [address] MCV Normal 80-94 [facility] Comment on above: Result Comment: Canc elled via OM: Order cancelled - Patient discharged Performed By: #### L 100.0100, L500.2500 ####[facility] [address] [place], [address] NEUT% Normal 47-70 [facility] Comment on above: Result Comment: Canc elled via OM: Order cancelled - Patient discharged Performed By: #### L 100.0100, L500.2500 ####[facility] [address] [place], [address] PLT Normal 150-450 [facility] Comment on above: Result Comment: Canc elled via OM: Order cancelled - Patient discharged Performed By: #### L 100.0100, L500.2500 ####[facility] [address] [place], [address] RBC Normal 4.6-6.2 [facility] Comment on above: Result Comment: Canc elled via OM: Order cancelled - Patient discharged Performed By: #### L 100.0100, L500.2500 ####[facility] [address] [place], [address] RDW CV Normal 11.6-14.6 [facility] Comment on above: Result Comment: Canc elled via OM: Order cancelled - Patient discharged Performed By: #### L 100.0100, L500.2500 ####[facility] [address] [place], [address] RDW SD Normal 35.1-43.9 [facility] Comment on above: Result Comment: Canc elled via OM: Order cancelled - Patient discharged Performed By: #### L 100.0100, L500.2500 ####[facility] [address] [place], [address] WBC Normal 4.4-11.0 [facility] Comment on above: Result Comment: Canc elled via OM: Order cancelled - Patient discharged Performed By: #### L 100.0100, L500.2500 ####[facility] [address] [place], [address] Absolute lymphocyte countOrd ered By: Deric Lantigua on 03-09-2025 Lymphocytes Auto (Unsp spec) [#/Vol] 0.53 10*3/uL Low 0.83-4.51 [facility] Absolute neutrophil countOrd ered By: Deric Lantigua on 03-09-2025 Neutrophils (Bld) [#/Vol] 4.0 10*3/uL 2.0-7.7 [facility] Anion gap in Serum or Plasma Ordered By: Deric Lantigua on 03-09-2025 Anion gap [Moles/Vol] 10 mmol/L 5-15 [facility] Automated lymphocyte count a s percentage of total leukocytesOrdered By: Deric Lantigua on 03-09-2025 Lymphocytes/100 WBC Auto (Unsp spec) 9.7 % Low 19-41 [facility] BUN/creatinine ratioOrdered By: Deric Lantigua on 03-09-2025 Urea nitrogen/Creatinine [Mass ratio] 20.8 mg/mg High 10-20 [facility] Basic Metabolic Profile (BMP )on 03-09-2025 BUN/CRE 20.8 RATIO High 10-20 [facility] Comment on above: Performed By: #### L 100.0100, L500.2500 ####[facility] [address] [place], [address] Calcium [Mass/Vol] 9.0 mg/dL Normal 7.6-11.[address] [facility] Comment on above: Performed By: #### L 100.0100, L500.2500 ####[facility] [address] [place], [address] Chloride [Moles/Vol] 101 mmol/L Normal 98-108 [facility] Comment on above: Performed By: #### L 100.0100, L500.2500 ####[facility] [address] [place], [address] CO2 [Moles/Vol] 26.6 mmol/L Normal 21.0-32.0 [facility] Comment on above: Performed By: #### L 100.0100, L500.2500 ####[facility] [address] [place], [address] Creatinine [Mass/Vol] 2.41 mg/dL High 0.70-1.20 [facility] Comment on above: Performed By: #### L 100.0100, L500.2500 ####[facility] [address] [place], [address] ECRCL 24.14 ml/min Low 50-250 [facility] Comment on above: Performed By: #### L 100.0100, L500.2500 ####[facility] [address] [place], [address] GAP 10 Normal 5-15 [facility] Comment on above: Performed By: #### L 100.0100, L500.2500 ####[facility] [address] [place], [address] GFR/1.73 sq M.predicted among non-blacks MDRD (S/P/Bld) [Vol rate/Area] 26 mL/min/{1.73_m2} Low >60 [facility] Comment on above: Result Comment: mL/m in/1.73m2 CKD-EPI Creatinine Equation (2020) Performed By: #### L 100.0100, L500.2500 ####[facility] [address] [place], [address] Glucose [Mass/Vol] 118 mg/dL High 70-[address] [facility] Comment on above: Performed By: #### L 100.0100, L500.2500 ####[facility] [address] [place], [address] Potassium [Moles/Vol] 4.3 mmol/L Normal 3.3-5.1 [facility] Comment on above: Performed By: #### L 100.0100, L500.2500 ####[facility] [address] [place], [address] Sodium [Moles/Vol] 138 mmol/L Normal 133-[address] [facility] Comment on above: Performed By: #### L 100.0100, L500.2500 ####[facility] [address] [place], [address] Urea nitrogen [Mass/Vol] 50 mg/dL High 4-19 [facility] Comment on above: Performed By: #### L 100.0100, L500.2500 ####[facility] [address] [place], [address] Basophil percentageOrdered B y: Deric Lantigua on 03-09-2025 Basophils/100 WBC (Bld) 0.2 % 0-[address] [facility] Bedside Glucoseon 03-09-2025 FINGERSTICK GLU 184 mg/dL High 74-106 [facility] Comment on above: Result Comment: KODY GEMENT OF PATIENT CARE PER NURSING PROTOCOL Performed By: #### L 501.080 ####[facility] [address] [place], [address] FINGERSTICK GLU 112 mg/dL High 74-106 [facility] Comment on above: Result Comment: KODY GEMENT OF PATIENT CARE PER NURSING PROTOCOL Performed By: #### L 501.080 ####[facility] [address] [place], [address] CBC W/Diff, Automatedon 02-18 Absolute Lymph 0.53 X10 3/uL Low 0.83-4.51 [facility] Comment on above: Performed By: #### L 100.0100, L500.2500 ####[facility] [address] [place], [address] Absolute Neut 4.0 X10 3/uL Normal 2.0-7.7 [facility] Comment on above: Performed By: #### L 100.0100, L500.2500 ####[facility] [address] [place], [address] Basophils/100 WBC (Bld) 0.2 % Normal 0-[address] [facility] Comment on above: Performed By: #### L 100.0100, L500.2500 ####[facility] [address] [place], [address] Eosinophils/100 WBC (Bld) 4.8 % Normal 0-5 [facility] Comment on above: Performed By: #### L 100.0100, L500.2500 ####[facility] [address] [place], [address] Erythrocyte distribution width (RBC) [Ratio] 16.3 % High 11.6-14.6 [facility] Comment on above: Performed By: #### L 100.0100, L500.2500 ####[facility] [address] [place], [address] Hematocrit (Bld) [Volume fraction] 29.6 % Low 40-54 [facility] Comment on above: Performed By: #### L 100.0100, L500.2500 ####[facility] [address] [place], [address] Hemoglobin (Bld) [Mass/Vol] 9.3 g/dL Low 13.0-16.5 [facility] Comment on above: Performed By: #### L 100.0100, L500.2500 ####[facility] [address] [place], [address] IG% 0.600 Normal 0.0-0.9 [facility] Comment on above: Result Comment: IG% - Immature Granulocytes (promyelocytes, myelocytes andmetamyelocytes) > 1% indicates that a LEFT SHIFT is Present. Performed By: #### L 100.0100, L500.2500 ####[facility] [address] [place], [address] Lymphocytes/100 WBC (Bld) 9.7 % Low 19-41 [facility] Comment on above: Performed By: #### L 100.0100, L500.2500 ####[facility] [address] [place], [address] MCH (RBC) [Entitic mass] 27.5 pg Normal 27.0-32.0 [facility] Comment on above: Performed By: #### L 100.0100, L500.2500 ####[facility] [address] [place], [address] MCHC (RBC) [Mass/Vol] 31.4 g/dL Low 32-36 [facility] Comment on above: Performed By: #### L 100.0100, L500.2500 ####[facility] [address] [place], [address] MCV (RBC) [Entitic vol] 87.6 fL Normal 80-[address] [facility] Comment on above: Performed By: #### L 100.0100, L500.2500 ####[facility] [address] [place], [address] Monocytes/100 WBC (Bld) 12.1 % High 0-[address] [facility] Comment on above: Performed By: #### L 100.0100, L500.2500 ####[facility] [address] [place], [address] Neutrophils/100 WBC (Bld) 72.6 % High 47-70 [facility] Comment on above: Performed By: #### L 100.0100, L500.2500 ####[facility] [address] [place], [address] Nucleated RBC (Bld) [#/Vol] 0 10*3/uL Normal 0-5 [facility] Comment on above: Performed By: #### L 100.0100, L500.2500 ####[facility] [address] [place], [address] Platelet mean volume (Bld) [Entitic vol] 10.0 fL Normal 6.2-12.0 [facility] Comment on above: Performed By: #### L 100.0100, L500.2500 ####[facility] [address] [place], [address] Platelets (Bld) [#/Vol] 162 10*3/uL Normal 150-450 [facility] Comment on above: Performed By: #### L 100.0100, L500.2500 ####[facility] [address] [place], [address] RBC (Bld) [#/Vol] 3.38 10*6/uL Low 4.6-6.2 [facility] Comment on above: Performed By: #### L 100.0100, L500.2500 ####[facility] [address] [place], [address] RDW SD 51.8 fl High 35.1-43.9 [facility] Comment on above: Performed By: #### L 100.0100, L500.2500 ####[facility] [address] [place], [address] WBC (Bld) [#/Vol] 5.5 10*3/uL Normal 4.4-11.[address] [facility] Comment on above: Performed By: #### L 100.0100, L500.2500 ####[facility] [address] [place], [address] Carbon dioxide, total [Moles /volume] in Central venous bloodOrdered By: Deric Lantigua on 03-09-2025 CO2 [Moles/Vol] 26.6 mmol/L 21.0-32.0 [facility] Chloride assayOrdered By: Silvia Lantigua on 03-09-2025 Chloride [Moles/Vol] 101 mmol/L 98-108 [facility] Discharge Instructionon 02-18 Discharge Instruction Normal [facility] Eosinophil percentageOrdered By: Deric Lantigua on 03-09-2025 Eosinophils/100 WBC (Bld) 4.8 % 0-5 [facility] Erythrocyte distribution wid th ratioOrdered By: Deric Lantigua on 03-09-2025 Erythrocyte distribution width (RBC) [Ratio] 16.3 % High 11.6-14.6 [facility] Erythrocyte distribution wid th standard deviationOrdered By: Deric Lantigua on 03-09-2025 Erythrocyte distribution width (RBC) [Ratio] 51.8 fl High 35.1-43.9 [facility] Glomerular filtration rate ( GFR) estimation/1.73 sq m using serum, plasma, or whole bOrdered By: Deric Lantigua on 03-09-2025 GFR/1.73 sq M.predicted among non-blacks MDRD (S/P/Bld) [Vol rate/Area] 26 mL/min/{1.73_m2} Low >60 [facility] Comment on above: mL/min/1.73m2 CKD-EP I Creatinine Equation (2020) Glucose measurement at bedsi deOrdered By: Deric Lantigua on 03-09-2025 Glucose [Mass/Vol] 184 mg/dL High 74-[address] [facility] Comment on above: MANAGEMENT OF PATIEN T CARE PER NURSING PROTOCOL Hematocrit Auto (Bld) [Volum e fraction]Ordered By: Deric Lantigua on 03-09-2025 Hematocrit (Bld) [Volume fraction] 29.6 % Low 40-54 [facility] Hemoglobin measurementOrdere d By: Deric Lantigua on 03-09-2025 Hemoglobin (Bld) [Mass/Vol] 9.3 g/dL Low 13.0-16.5 [facility] Immature granulocytes/100 WB C Auto (Bld)Ordered By: Deric Lantigua on 03-09-2025 Immature granulocytes/100 WBC (Bld) 0.600 % 0.0-0.9 [facility] Comment on above: IG% - Immature Granu locytes (promyelocytes, myelocytes and metamyelocytes) > 1% indicates that a LEFT SHIFT is Present. MCV (mean corpuscular volume ) determinationOrdered By: Deric Lantigua on 03-09-2025 MCV (RBC) [Entitic vol] 87.6 fL 80-[address] [facility] Mean corpuscular hemoglobin (MCH) determinationOrdered By: Deric Lantigua on 03-09-2025 MCH (RBC) [Entitic mass] 27.5 pg 27.0-32.0 [facility] Mean corpuscular hemoglobin concentration (MCHC) determinationOrdered By: Deric Lantigua on 03-09-2025 MCHC (RBC) [Mass/Vol] 31.4 g/dL Low 32-36 [facility] Mean platelet volume determi nationOrdered By: Deric Lantigua on 03-09-2025 Platelet mean volume (Bld) [Entitic vol] 10.0 fL 6.2-12.0 [facility] Monocyte percentageOrdered B y: Deric Lantigua on 03-09-2025 Monocytes/100 WBC (Bld) 12.1 % High 0-[address] [facility] Neutrophil percentageOrdered By: Deric Lantigua on 03-09-2025 Neutrophils/100 WBC (Bld) 72.6 % High 47-70 [facility] Nucleated red blood cell per centageOrdered By: Deric Lantigua on 03-09-2025 Nucleated RBC/100 WBC (Bld) [Ratio] 0 % 0-5 [facility] Platelet countOrdered By: Silvia Lantigua on 03-09-2025 Platelets (Bld) [#/Vol] 162 10*3/uL 150-450 [facility] Potassium measurement (mass/ volume)Ordered By: Deric Lantigua on 03-09-2025 Potassium (Unsp spec) [Mass/Vol] 4.3 mmol/L 3.3-5.1 [facility] RBC Auto (Bld) [#/Vol]Ordere d By: Deric Lantigua on 03-09-2025 RBC (Bld) [#/Vol] 3.38 10*6/uL Low 4.6-6.2 [facility] Serum creatinine measurement (mass/volume)Ordered By: Deric Lantigua on 03-09-2025 Creatinine [Mass/Vol] 2.41 mg/dL High 0.70-1.20 [facility] Serum glucose measurement (m ass/volume)Ordered By: Deric Lantigua on 03-09-2025 Glucose [Mass/Vol] 118 mg/dL High 70-[address] [facility] Serum or plasma calcium kings[place] urement (mass/volume)Ordered By: Deric Lantigua on 03-09-2025 Calcium [Mass/Vol] 9.0 mg/dL 7.6-11.[address] [facility] Serum or plasma urea nitroge n measurement (mass/volume)Ordered By: Deric Lantigua on 03-09-2025 Urea nitrogen [Mass/Vol] 50 mg/dL High 4-19 [facility] Sodium levelOrdered By: Mikki Lantigua on 03-09-2025 Sodium [Moles/Vol] 138 mmol/L 133-[address] [facility] White blood cell (WBC) count Ordered By: Deric Lantigua on 03-09-2025 WBC (Bld) [#/Vol] 5.5 10*3/uL 4.4-11.[address] [facility] Basic Metabolic Profile (BMP )on 03-08-2025 BUN/CRE 19.9 RATIO Normal 10-20 [facility] Comment on above: Performed By: #### L 500.2500 ####[facility] [address] [place], [address] Calcium [Mass/Vol] 8.8 mg/dL Normal 7.6-11.[address] [facility] Comment on above: Performed By: #### L 500.2500 ####[facility] [address] [place], [address] Chloride [Moles/Vol] 99 mmol/L Normal 98-108 [facility] Comment on above: Performed By: #### L 500.2500 ####[facility] [address] [place], [address] CO2 [Moles/Vol] 27.0 mmol/L Normal 21.0-32.0 [facility] Comment on above: Performed By: #### L 500.2500 ####[facility] [address] [place], [address] Creatinine [Mass/Vol] 3.11 mg/dL High 0.70-1.20 [facility] Comment on above: Performed By: #### L 500.2500 ####[facility] [address] [place], [address] ECRCL 17.10 ml/min Low 50-250 [facility] Comment on above: Performed By: #### L 500.2500 ####[facility] [address] [place], [address] GAP 10 Normal 5-15 [facility] Comment on above: Performed By: #### L 500.2500 ####[facility] [address] [place], [address] GFR/1.73 sq M.predicted among non-blacks MDRD (S/P/Bld) [Vol rate/Area] 19 mL/min/{1.73_m2} Low >60 [facility] Comment on above: Result Comment: mL/m in/1.73m2 CKD-EPI Creatinine Equation (2020) Performed By: #### L 500.2500 ####[facility] [address] [place], [address] Glucose [Mass/Vol] 127 mg/dL High 70-[address] [facility] Comment on above: Performed By: #### L 500.2500 ####[facility] [address] [place], [address] Potassium [Moles/Vol] 5.3 mmol/L High 3.3-5.1 [facility] Comment on above: Performed By: #### L 500.2500 ####[facility] [address] [place], [address] Sodium [Moles/Vol] 135 mmol/L Normal 133-[address] [facility] Comment on above: Performed By: #### L 500.2500 ####[facility] [address] [place], [address] Urea nitrogen [Mass/Vol] 62 mg/dL High 4-19 [facility] Comment on above: Performed By: #### L 500.2500 ####[facility] [address] [place], [address] Bedside Glucoseon 03-08-2025 FINGERSTICK GLU 132 mg/dL High 74-106 [facility] Comment on above: Result Comment: KODY TAE OF PATIENT CARE PER NURSING PROTOCOL Performed By: #### L 501.080 ####[facility] [address] [place], [address] FINGERSTICK GLU 128 mg/dL High 74-106 [facility] Comment on above: Result Comment: KODY GEMENT OF PATIENT CARE PER NURSING PROTOCOL Performed By: #### L 501.080 ####[facility] [address] [place], [address] FINGERSTICK GLU 142 mg/dL High 74-106 [facility] Comment on above: Result Comment: KODY GEMENT OF PATIENT CARE PER NURSING PROTOCOL Performed By: #### L 501.080 ####[facility] [address] [place], [address] FINGERSTICK GLU 122 mg/dL High 74-106 [facility] Comment on above: Result Comment: KODY GEMENT OF PATIENT CARE PER NURSING PROTOCOL Performed By: #### L 501.080 ####[facility] [address] [place], [address] Magnesiumon 03-08-2025 Magnesium [Mass/Vol] 2.3 mg/dL High 1.5-2.2 [facility] Comment on above: Performed By: #### L 501.5200 ####[facility] [address] [place], [address] Magnesium measurement (mass/ volume)Ordered By: Nicola Madison on 03-08-2025 Magnesium (Unsp spec) [Mass/Vol] 2.3 mg/dL High 1.5-2.2 [facility] Potassiumon 03-08-2025 Potassium [Moles/Vol] 5.5 mmol/L High 3.3-5.1 [facility] Comment on above: Performed By: #### L 501.4420 ####[facility] [address] [place], [address] Basic Metabolic Profile (BMP )on 03-07-2025 BUN/CRE 18.2 RATIO Normal 10-20 [facility] Comment on above: Performed By: #### L 500.2500 ####[facility] [address] [place], [address] Calcium [Mass/Vol] 8.7 mg/dL Normal 7.6-11.[address] [facility] Comment on above: Performed By: #### L 500.2500 ####[facility] [address] [place], [address] Chloride [Moles/Vol] 97 mmol/L Low 98-108 [facility] Comment on above: Performed By: #### L 500.2500 ####[facility] [address] [place], [address] CO2 [Moles/Vol] 26.3 mmol/L Normal 21.0-32.0 [facility] Comment on above: Performed By: #### L 500.2500 ####[facility] [address] [place], [address] Creatinine [Mass/Vol] 3.09 mg/dL High 0.70-1.20 [facility] Comment on above: Performed By: #### L 500.2500 ####[facility] [address] [place], [address] ECRCL 17.21 ml/min Low 50-250 [facility] Comment on above: Performed By: #### L 500.2500 ####[facility] [address] [place], [address] GAP 10 Normal 5-15 [facility] Comment on above: Performed By: #### L 500.2500 ####[facility] [address] [place], [address] GFR/1.73 sq M.predicted among non-blacks MDRD (S/P/Bld) [Vol rate/Area] 20 mL/min/{1.73_m2} Low >60 [facility] Comment on above: Result Comment: mL/m in/1.73m2 CKD-EPI Creatinine Equation (2020) Performed By: #### L 500.2500 ####[facility] [address] [place], [address] Glucose [Mass/Vol] 126 mg/dL High 70-[address] [facility] Comment on above: Performed By: #### L 500.2500 ####[facility] [address] [place], [address] Potassium [Moles/Vol] 4.8 mmol/L Normal 3.3-5.1 [facility] Comment on above: Performed By: #### L 500.2500 ####[facility] [address] [place], [address] Sodium [Moles/Vol] 134 mmol/L Normal 133-[address] [facility] Comment on above: Performed By: #### L 500.2500 ####[facility] [address] [place], [address] Urea nitrogen [Mass/Vol] 56 mg/dL High 4-19 [facility] Comment on above: Performed By: #### L 500.2500 ####[facility] [address] [place], [address] Bedside Glucoseon 03-07-2025 FINGERSTICK GLU 151 mg/dL High 74-106 [facility] Comment on above: Result Comment: KODY GEMENT OF PATIENT CARE PER NURSING PROTOCOL Performed By: #### L 501.080 ####[facility] [address] [place], [address] FINGERSTICK GLU 191 mg/dL High 74-106 [facility] Comment on above: Result Comment: KODY GEMENT OF PATIENT CARE PER NURSING PROTOCOL Performed By: #### L 501.080 ####[facility] [address] [place], [address] FINGERSTICK GLU 184 mg/dL High 74-106 [facility] Comment on above: Result Comment: KODY GEMENT OF PATIENT CARE PER NURSING PROTOCOL Performed By: #### L 501.080 ####[facility] [address] [place], [address] FINGERSTICK GLU 127 mg/dL High 74-106 [facility] Comment on above: Result Comment: KODY STRONG OF PATIENT CARE PER NURSING PROTOCOL Performed By: #### L 501.080 ####[facility] [address] [place], [address] Urine Cultureon 03-07-2025 [facility] Comments: On UA samp le of 03/04 Culture exhibits no growth. Normal [facility] Comment on above: Performed By: #### M 100.2200 ####[facility] [address] [place], [address] Basic Metabolic Profile (BMP )on 03-06-2025 BUN/CRE 17.8 RATIO Normal 10-20 [facility] Comment on above: Performed By: #### L 500.2500, L501.2300 ####[facility] [address] [place], [address] Calcium [Mass/Vol] 9.1 mg/dL Normal 7.6-11.[address] [facility] Comment on above: Performed By: #### L 500.2500, L501.2300 ####[facility] [address] [place], [address] Chloride [Moles/Vol] 99 mmol/L Normal 98-108 [facility] Comment on above: Performed By: #### L 500.2500, L501.2300 ####[facility] [address] [place], [address] CO2 [Moles/Vol] 31.2 mmol/L Normal 21.0-32.0 [facility] Comment on above: Performed By: #### L 500.2500, L501.2300 ####[facility] [address] [place], [address] Creatinine [Mass/Vol] 2.23 mg/dL High 0.70-1.20 [facility] Comment on above: Performed By: #### L 500.2499, L5.0 ####[facility] [address] [place], [address] ECRCL 23.84 ml/min Low 50-250 [facility] Comment on above: Performed By: #### L 500.2499, L5.0 ####[facility] [address] [place], [address] GAP 8 Normal 5-15 [facility] Comment on above: Performed By: #### L 500.2499, L5.0 ####[facility] [address] [place], [address] GFR/1.73 sq M.predicted among non-blacks MDRD (S/P/Bld) [Vol rate/Area] 29 mL/min/{1.73_m2} Low >60 [facility] Comment on above: Result Comment: mL/m in/1.73m2 CKD-EPI Creatinine Equation (2020) Performed By: #### L 500.2499, L5.0 ####[facility] [address] [place], [address] Glucose [Mass/Vol] 118 mg/dL High 70-[address] [facility] Comment on above: Performed By: #### L 500.2499, L5.0 ####[facility] [address] [place], [address] Potassium [Moles/Vol] 4.7 mmol/L Normal 3.3-5.1 [facility] Comment on above: Performed By: #### L 500.2500, L5.2300 ####[facility] [address] [place], [address] Sodium [Moles/Vol] 138 mmol/L Normal 133-[address] [facility] Comment on above: Performed By: #### L 500.2500, L501.2300 ####[facility] [address] [place], [address] Urea nitrogen [Mass/Vol] 40 mg/dL High 4-19 [facility] Comment on above: Performed By: #### L 500.2500, L501.2300 ####[facility] [address] [place], [address] Bedside Glucoseon 03-06-2025 FINGERSTICK GLU 146 mg/dL High 74-106 [facility] Comment on above: Result Comment: KODY GEMENT OF PATIENT CARE PER NURSING PROTOCOL Performed By: #### L 501.080 ####[facility] [address] [place], [address] FINGERSTICK GLU 117 mg/dL High 74-106 [facility] Comment on above: Result Comment: KODY GEMENT OF PATIENT CARE PER NURSING PROTOCOL Performed By: #### L 501.080 ####[facility] [address] [place], [address] FINGERSTICK GLU 229 mg/dL High 74-106 [facility] Comment on above: Result Comment: KODY GEMENT OF PATIENT CARE PER NURSING PROTOCOL Performed By: #### L 501.080 ####[facility] [address] [place], [address] FINGERSTICK GLU 109 mg/dL High 74-106 [facility] Comment on above: Result Comment: KODY GEMENT OF PATIENT CARE PER NURSING PROTOCOL Performed By: #### L 501.080 ####[facility] [address] [place], [address] FINGERSTICK GLU 140 mg/dL High 74-106 [facility] Comment on above: Result Comment: KODY GEMENT OF PATIENT CARE PER NURSING PROTOCOL Performed By: #### L 501.080 ####[facility] [address] [place], [address] Consultation - Cardiologyon 03-06-2025 Consultation - Cardiology Normal [facility] Phosphoruson 03-06-2025 Phosphate [Mass/Vol] 3.9 mg/dL Normal 2.7-4.5 [facility] Comment on above: Performed By: #### L 500.2500, L501.2300 ####[facility] [address] [place], [address] Urine cultureOrdered By: Kavita Lantigua on 03-06-2025 Bacteria identified Cx Nom (U) Culture exhibits no growth. [facility] Bedside Glucoseon 03-05-2025 FINGERSTICK GLU 111 mg/dL High 74-106 [facility] Comment on above: Result Comment: KODY GEMENT OF PATIENT CARE PER NURSING PROTOCOL Performed By: #### L 501.080 ####[facility] [address] [place], [address] FINGERSTICK GLU 152 mg/dL High 74-106 [facility] Comment on above: Result Comment: KODY GEMENT OF PATIENT CARE PER NURSING PROTOCOL Performed By: #### L 501.080 ####[facility] [address] [place], [address] FINGERSTICK GLU 159 mg/dL High 74-106 [facility] Comment on above: Result Comment: KODY GEMENT OF PATIENT CARE PER NURSING PROTOCOL Performed By: #### L 501.080 ####[facility] [address] [place], [address] Bilirubin, totalOrdered By: Nicola Madison on 03-05-2025 Bilirubin [Mass/Vol] 0.46 mg/dL 0.00-1.30 [facility] CBC W/Diff, Automatedon 02-17 Absolute Lymph 0.72 X10 3/uL Low 0.83-4.51 [facility] Comment on above: Performed By: #### L 501.2300, L100.0100 ####[facility] [address] [place], [address] Absolute Neut 5.8 X10 3/uL Normal 2.0-7.7 [facility] Comment on above: Performed By: #### L 501.2300, L100.0100 ####[facility] [address] [place], [address] Basophils/100 WBC (Bld) 0.4 % Normal 0-[address] [facility] Comment on above: Performed By: #### L 501.2300, L100.0100 ####[facility] [address] [place], [address] Eosinophils/100 WBC (Bld) 2.0 % Normal 0-5 [facility] Comment on above: Performed By: #### L 501.2300, L100.0100 ####[facility] [address] [place], [address] Erythrocyte distribution width (RBC) [Ratio] 16.6 % High 11.6-14.6 [facility] Comment on above: Performed By: #### L 501.2300, L100.0100 ####[facility] [address] [place], [address] Hematocrit (Bld) [Volume fraction] 30.1 % Low 40-54 [facility] Comment on above: Performed By: #### L 501.2300, L100.0100 ####[facility] [address] [place], [address] Hemoglobin (Bld) [Mass/Vol] 9.3 g/dL Low 13.0-16.5 [facility] Comment on above: Performed By: #### L 501.2300, L100.0100 ####[facility] [address] [place], [address] IG% 0.300 Normal 0.0-0.9 [facility] Comment on above: Result Comment: IG% - Immature Granulocytes (promyelocytes, myelocytes andmetamyelocytes) > 1% indicates that a LEFT SHIFT is Present. Performed By: #### L 501.2300, L100.0100 ####[facility] [address] [place], [address] Lymphocytes/100 WBC (Bld) 9.5 % Low 19-41 [facility] Comment on above: Performed By: #### L 501.2300, L100.0100 ####[facility] [address] [place], [address] MCH (RBC) [Entitic mass] 27.0 pg Normal 27.0-32.0 [facility] Comment on above: Performed By: #### L 501.2300, L100.0100 ####[facility] [address] [place], [address] MCHC (RBC) [Mass/Vol] 30.9 g/dL Low 32-36 [facility] Comment on above: Performed By: #### L 501.2300, L100.0100 ####[facility] [address] [place], [address] MCV (RBC) [Entitic vol] 87.5 fL Normal 80-[address] [facility] Comment on above: Performed By: #### L 501.2300, L100.0100 ####[facility] [address] [place], [address] Monocytes/100 WBC (Bld) 11.4 % High 0-[address] [facility] Comment on above: Performed By: #### L 501.2300, L100.0100 ####[facility] [address] [place], [address] Neutrophils/100 WBC (Bld) 76.4 % High 47-70 [facility] Comment on above: Performed By: #### L 501.2300, L100.0100 ####[facility] [address] [place], [address] Nucleated RBC (Bld) [#/Vol] 0 10*3/uL Normal 0-5 [facility] Comment on above: Performed By: #### L 501.2300, L100.0100 ####[facility] [address] [place], [address] Platelet mean volume (Bld) [Entitic vol] 10.7 fL Normal 6.2-12.0 [facility] Comment on above: Performed By: #### L 501.2300, L100.0100 ####[facility] [address] [place], [address] Platelets (Bld) [#/Vol] 181 10*3/uL Normal 150-450 [facility] Comment on above: Performed By: #### L 501.2300, L100.0100 ####[facility] [address] [place], [address] RBC (Bld) [#/Vol] 3.44 10*6/uL Low 4.6-6.2 [facility] Comment on above: Performed By: #### L 501.2300, L100.0100 ####[facility] [address] [place], [address] RDW SD 52.8 fl High 35.1-43.9 [facility] Comment on above: Performed By: #### L 501.2300, L100.0100 ####[facility] [address] [place], [address] WBC (Bld) [#/Vol] 7.6 10*3/uL Normal 4.4-11.[address] [facility] Comment on above: Performed By: #### L 501.2300, L100.0100 ####[facility] [address] [place], [address] Calculated very low density lipoprotein (VLDL) cholesterol measurementOrdered By: Nicola Madison on 03-05-2025 Calculated very low density lipoprotein (VLDL) cholesterol measurement 16 mg/dL 5-40 [facility] Chest 1 View (Portable)on Chest 1 View (Portable) Normal [facility] Comprehensive Metabolic Prof ilon 03-05-2025 Albumin [Mass/Vol] 3.4 g/dL Normal 3.4-4.[address] [facility] Comment on above: Performed By: #### L 500.4050, L500.4100, L503.7505 ####[facility] [address] [place], [address] Albumin/Globulin [Mass ratio] 0.9 {ratio} Normal 0.9-2.4 [facility] Comment on above: Performed By: #### L 500.4050, L500.4100, L503.7505 ####[facility] [address] [place], [address] ALK PHOS 75 U/L Normal 40-129 [facility] Comment on above: Performed By: #### L 500.4050, L500.4100, L503.7505 ####[facility] [address] [place], [address] ALT [Catalytic activity/Vol] 10 U/L Normal <=46 [facility] Comment on above: Performed By: #### L 500.4050, L500.4100, L503.7505 ####[facility] [address] [place], [address] AST [Catalytic activity/Vol] 15 U/L Normal <=37 [facility] Comment on above: Performed By: #### L 500.4050, L500.4100, L503.7505 ####[facility] [address] [place], [address] Bilirubin [Mass/Vol] 0.46 mg/dL Normal 0.00-1.30 [facility] Comment on above: Performed By: #### L 500.4050, L500.4100, L503.7505 ####[facility] [id number] [place], [address] BUN/CRE 18.6 RATIO Normal 10-20 [facility] Comment on above: Performed By: #### L 500.4050, L500.4100, [id number] ####[facility] [id number] [place], [address] Calcium [Mass/Vol] 9.1 mg/dL Normal 7.6-11.[address] [facility] Comment on above: Performed By: #### L 500.4050, L500.4100, [id number] ####[facility] [id number] [place], [address] Chloride [Moles/Vol] 101 mmol/L Normal 98-108 [facility] Comment on above: Performed By: #### L 500.4050, L500.4100, [id number] ####[facility] [id number] [place], [address] CO2 [Moles/Vol] 27.2 mmol/L Normal 21.0-32.0 [facility] Comment on above: Performed By: #### L 500.4050, L500.4100, [id number] ####[facility] [id number] [place], [address] Creatinine [Mass/Vol] 1.95 mg/dL High 0.70-1.20 [facility] Comment on above: Performed By: #### L 500.4050, L500.4100, [id number] ####[facility] [id number] [place], [address] ECRCL 27.26 ml/min Low 50-250 [facility] Comment on above: Performed By: #### L 500.4050, L500.4100, L503.7505 ####[facility] [address] [place], [address] GAP 10 Normal 5-15 [facility] Comment on above: Performed By: #### L 500.4050, L500.4100, L503.7505 ####[facility] [address] [place], [address] GFR/1.73 sq M.predicted among non-blacks MDRD (S/P/Bld) [Vol rate/Area] 34 mL/min/{1.73_m2} Low >60 [facility] Comment on above: Result Comment: mL/m in/1.73m2 CKD-EPI Creatinine Equation (2020) Performed By: #### L 500.4050, L500.4100, L503.7505 ####[facility] [address] [place], [address] Globulin (S) [Mass/Vol] 3.9 g/dL Normal 2.2-4.[address] [facility] Comment on above: Performed By: #### L 500.4050, L500.4100, L503.7505 ####[facility] [address] [place], [address] Glucose [Mass/Vol] 171 mg/dL High 70-[address] [facility] Comment on above: Performed By: #### L 500.4050, L500.4100, L503.7505 ####[facility] [address] [place], [address] Potassium [Moles/Vol] 5.0 mmol/L Normal 3.3-5.1 [facility] Comment on above: Performed By: #### L 500.4050, L500.4100, L503.7505 ####[facility] [address] [place], [address] Sodium [Moles/Vol] 138 mmol/L Normal 133-[address] [facility] Comment on above: Performed By: #### L 500.4050, L500.4100, L503.7505 ####[facility] [address] [place], [address] T PROT 7.3 g/dL Normal 5.9-8.4 [facility] Comment on above: Performed By: #### L 500.4050, L500.4100, L503.7505 ####[facility] [address] [place], [address] Urea nitrogen [Mass/Vol] 36 mg/dL High 4-19 [facility] Comment on above: Performed By: #### L 500.4050, L500.4100, L503.7505 ####[facility] [address] [place], [address] Echocardiogram study reportO rdered By: Marjorie Green on 03-05-2025 Study report [facility] [address] [place] [address] Echo Complete W/ Contrast 03/05/25 0941 MR#: [id number] Acct: [id number] Name: PEDRO HILLMAN Rep #:[id number] : 1945 80 From: Marjorie Green MD [...] Stevens and Student 03/05/25 1152 Date _ Mrajorie Green MD CC: Dr. Nicola Lindsey DO; Dr. Tonio Fajardo DO; Dr. Deric Lantigua MD ~ Date Dictated: 03/05/25 0941 Date Transcribed: 03/05/25 1152 Financial Operations Analyst: Signed [facility] Work Phone: [phone] 03-05-2025 Natriuretic peptide B (Bld) [Mass/Vol] 4176 pg/mL High <=1800 [facility] Comment on above: Result Comment: Hear t Failure Unlikely: < 300 pg/mLHeart Failure Likely< 50 Years: > 450 pg/mL50-75 Years: > 900 pg/mL>75 Years: > 1800 pg/mL Performed By: #### L 500.4050, L500.4100, L504.7344 ####[facility] [address] [place], [address] LDL calc ser/plasOrdered By: Nicola Madison on 03-05-2025 Cholesterol in LDL [Mass/Vol] 63 mg/dL [facility] Comment on above: Shjtnpkskb=421-806 m g/dL & Higher Ncnz=125 mg/dL or greater Laboratory - Chemistry and C hemistry - challengeOrdered By: Nicola Madison on 03-05-2025 AST [Catalytic activity/Vol] 15 U/L <38 [facility] Lipid Profileon 03-05-2025 CHOL:HDL 3.04 Normal [facility] Comment on above: Performed By: #### L 500.4050, L500.4100, L503.7505 ####[facility] [address] [place], [address] Cholesterol [Mass/Vol] 117 mg/dL Normal <=200 [facility] Comment on above: Result Comment: Chol esterol level, Desirable <200 mg/dLBorderline high cholesterol 200-239 mg/dLHigh cholesterol >=240 mg/dLRecommendations of the NCEP Adult Treatment Panel for thefollowing risk-cutoff thresholds for the [place] Americanpopulation. Performed By: #### L 500.4050, L500.4100, L503.7505 ####[facility] [address] [place], [address] Cholesterol in HDL [Mass/Vol] 39 mg/dL Low [facility] Comment on above: Result Comment: Gia onal Cholesterol Education Program (NCEP) guidelines:<40 mg/dL: Low HDL-cholesterol (major risk factor for CHD)>= 60 mg/dL: High HDL-cholesterol (negative risk factor forCHD)HDL-cholesterol is affected by a number of factors, e.g.smoking, exercise, hormones, sex and age. Performed By: #### L 500.4050, L500.4100, L503.7505 ####[facility] [address] [place], [address] Cholesterol in LDL [Mass/Vol] 63 mg/dL Normal [facility] Comment on above: Result Comment: Bord nafnub=464-008 mg/dL Higher Xukd=846 mg/dL or greater Performed By: #### L 500.4050, L500.4100, L503.7505 ####[facility] [address] [place], [address] Cholesterol in VLDL [Mass/Vol] 16 mg/dL Normal 5-40 [facility] Comment on above: Performed By: #### L 500.4050, L500.4100, L503.7505 ####[facility] [address] [place], [address] Triglyceride [Mass/Vol] 79 mg/dL Normal [facility] Comment on above: Result Comment: The drugs N-Acetylcysteine and Metamizole may falselydepress this assay.Normal range: <150 mg/dLBorderline High: 150-199 mg/dLHigh: 200-499 mg/dLVery High: >500 mg/dL Performed By: #### L 500.4050, L500.4100, L503.7505 ####[facility] [address] [place], [address] Natriuretic peptide.B prohor girish N-Terminal [Mass/volume] in Serum or PlasmaOrdered By: Nicola Madison on 03-05-2025 Natriuretic peptide.B prohormone N-Terminal [Mass/Vol] 4176 pg/mL High <1800 [facility] Comment on above: Heart Failure Unlike ly: < 300 pg/mLHeart Failure Likely< 50 Years: > 450 pg/mL50-75 Years: > 900 pg/mL>75 Years: > 1800 pg/mL No Panel InformationOrdered By: Nicola Madison on 03-05-2025 15 U/L <38 [facility] Phosphoruson 03-05-2025 Phosphate [Mass/Vol] 3.3 mg/dL Normal 2.7-4.5 [facility] Comment on above: Performed By: #### L 501.2300, L100.0100 ####[facility] [address] [place], [address] Screening total cholesterol/ high density lipoprotein (HDL) cholesterol ratioOrdered By: Nicola Madison on 03-05-2025 Cholesterol.total/Choles terol in HDL [Mass ratio] 3.04 {ratio} [facility] Serum globulin measurementOr dered By: Nicola Madison on 03-05-2025 Globulin (S) [Mass/Vol] 3.9 g/dL 2.2-4.[address] [facility] Serum or plasma alanine ortiz otransferase (ALT) measurementOrdered By: Nicola Madison on 03-05-2025 ALT [Catalytic activity/Vol] 10 U/L <47 [facility] Serum or plasma albumin kingsley urement (mass/volume)Ordered By: Nicola Madison on 03-05-2025 Albumin [Mass/Vol] 3.4 g/dL 3.4-4.[address] [facility] Serum or plasma albumin/glob ulin mass ratioOrdered By: Nicola Madison on 03-05-2025 Albumin/Globulin [Mass ratio] 0.9 {ratio} 0.9-2.4 [facility] Serum or plasma alkaline roosevelt sphatase measurementOrdered By: Nicola Madison on 03-05-2025 ALP [Catalytic activity/Vol] 75 U/L 40-129 [facility] Serum or plasma cholesterol in HDL measurement (mass/volume)Ordered By: Nicola Madison on 03-05-2025 Cholesterol in HDL [Mass/Vol] 39 mg/dL Low >40 [facility] Comment on above: National Cholesterol Education Program (NCEP) guidelines:<40 mg/dL: Low HDL-cholesterol (major risk factor for CHD)>= 60 mg/dL: High HDL-cholesterol (negative risk factor for CHD)HDL-cholesterol is affected by a number of factors, e.g. smoking, exercise, hormones, sex and age. Serum or plasma cholesterol measurement (mass/volume)Ordered By: Nicola Madison on 03-05-2025 Cholesterol [Mass/Vol] 117 mg/dL <201 [facility] Comment on above: Cholesterol level, D esirable <200 mg/dLBorderline high cholesterol 200-239 mg/dLHigh cholesterol >=240 mg/dLRecommendations of the NCEP Adult Treatment Panel for the following risk-cutoff thresholds for the [place] population. Total proteinOrdered By: Jacob Madison on 03-05-2025 Protein [Mass/Vol] 7.3 g/dL 5.9-8.[address] [facility] Triglycerides measurementOrd ered By: Nicola Madison on 03-05-2025 Triglyceride [Mass/Vol] 79 mg/dL <[address] [facility] Comment on above: The drugs N-Acetylcy steine and Metamizole may falsely depress this assay. Normal range: <150 mg/dLBorderline High: 150-199 mg/dLHigh: 200-499 mg/dLVery High: >500 mg/dL Absolute lymphocyte countOrd ered By: Chris Ochoa on 03-04-2025 Lymphocytes Auto (Unsp spec) [#/Vol] 0.77 10*3/uL Low 0.83-4.51 [facility] Absolute neutrophil countOrd ered By: Chris Ochoa on 03-04-2025 Neutrophils (Bld) [#/Vol] 6.0 10*3/uL 2.0-7.7 [facility] Anion gap in Serum or Plasma Ordered By: Chris Ochoa on 03-04-2025 Anion gap [Moles/Vol] 8 mmol/L 5-15 [facility] Automated lymphocyte count a s percentage of total leukocytesOrdered By: Chris Ochoa on 03-04-2025 Lymphocytes/100 WBC Auto (Unsp spec) 10.1 % Low 19-41 [facility] BUN/creatinine ratioOrdered By: Chris Ochoa on 03-04-2025 Urea nitrogen/Creatinine [Mass ratio] 19.7 mg/mg 10-20 [facility] Basic Metabolic Profile (BMP )on 03-04-2025 BUN/CRE 19.7 RATIO Normal - [facility] Comment on above: Performed By: #### L 100.0100, L503.7505, L501.4021, L500.2500 ####[facility] [address] [place], [address] Calcium [Mass/Vol] 9.3 mg/dL Normal 7.6-11.[address] [facility] Comment on above: Performed By: #### L 100.0100, L503.7505, L501.4021, L500.2500 ####[facility] [address] [place], [address] Chloride [Moles/Vol] 102 mmol/L Normal 98-108 [facility] Comment on above: Performed By: #### L 100.0100, L503.7505, L501.4021, L500.2500 ####[facility] [address] [place], [address] CO2 [Moles/Vol] 28.6 mmol/L Normal 21.0-32.0 [facility] Comment on above: Performed By: #### L 100.0100, L503.7505, L501.4021, L500.2500 ####[facility] [address] [place], [address] Creatinine [Mass/Vol] 1.86 mg/dL High 0.70-1.20 [facility] Comment on above: Performed By: #### L 100.0100, L503.7505, L501.4021, L500.2500 ####[facility] [address] [place], [address] ECRCL 28.58 ml/min Low 50-250 [facility] Comment on above: Performed By: #### L 100.0100, L503.7505, L501.4021, L500.2500 ####[facility] [address] [place], [address] GAP 8 Normal 5-15 [facility] Comment on above: Performed By: #### L 100.0100, L503.7505, L501.4021, L500.2500 ####[facility] [address] [place], [address] GFR/1.73 sq M.predicted among non-blacks MDRD (S/P/Bld) [Vol rate/Area] 36 mL/min/{1.73_m2} Low >60 [facility] Comment on above: Result Comment: mL/m in/1.73m2 CKD-EPI Creatinine Equation (2020) Performed By: #### L 100.0100, L503.7505, L501.4021, L500.2500 ####[facility] [address] [place], [address] Glucose [Mass/Vol] 124 mg/dL High 70-[address] [facility] Comment on above: Performed By: #### L 100.0100, L503.7505, L501.4021, L500.2500 ####[facility] [address] [place], [address] Potassium [Moles/Vol] 5.2 mmol/L High 3.3-5.1 [facility] Comment on above: Performed By: #### L 100.0100, L503.7505, L501.4021, L500.2500 ####[facility] [address] [place], [address] Sodium [Moles/Vol] 138 mmol/L Normal 133-[address] [facility] Comment on above: Performed By: #### L 100.0100, L503.7505, L501.4021, L500.2500 ####[facility] [address] [place], [address] Urea nitrogen [Mass/Vol] 37 mg/dL High 4-19 [facility] Comment on above: Performed By: #### L 100.0100, L503.7505, L501.4021, L500.2500 ####[facility] [address] [place], [address] Basophil percentageOrdered B y: Chris Ochoa on 03-04-2025 Basophils/100 WBC (Bld) 0.4 % 0-[address] [facility] Bedside Glucoseon 03-04-2025 FINGERSTICK GLU 80 mg/dL Normal 74-106 [facility] Comment on above: Result Comment: KODY STRONG OF PATIENT CARE PER NURSING PROTOCOL Performed By: #### L 501.080 ####[facility] [address] [place], [address] Bilirubin Test strip Ql (U)O rdered By: Nicola Madison on 03-04-2025 Bilirubin Ql (U) Negative Negative [facility] CBC W/Diff, Automatedon 02-17 Absolute Lymph 0.77 X10 3/uL Low 0.83-4.51 [facility] Comment on above: Performed By: #### L 100.0100, L503.7505, L501.4021, L500.2500 ####[facility] [address] [place], [address] Absolute Neut 6.0 X10 3/uL Normal 2.0-7.7 [facility] Comment on above: Performed By: #### L 100.0100, L503.7505, L501.4021, L500.2500 ####[facility] [address] [place], [address] Basophils/100 WBC (Bld) 0.4 % Normal 0-[address] [facility] Comment on above: Performed By: #### L 100.0100, L503.7505, L501.4021, L500.2500 ####[facility] [address] [place], [address] Eosinophils/100 WBC (Bld) 1.6 % Normal 0-5 [facility] Comment on above: Performed By: #### L 100.0100, L503.7505, L501.4021, L500.2500 ####[facility] [address] [place], [address] Erythrocyte distribution width (RBC) [Ratio] 16.5 % High 11.6-14.6 [facility] Comment on above: Performed By: #### L 100.0100, L503.7505, L501.4021, L500.2500 ####[facility] [address] [place], [address] Hematocrit (Bld) [Volume fraction] 33.4 % Low 40-54 [facility] Comment on above: Performed By: #### L 100.0100, L503.7505, L501.4021, L500.2500 ####[facility] [address] [place], [address] Hemoglobin (Bld) [Mass/Vol] 10.1 g/dL Low 13.0-16.5 [facility] Comment on above: Performed By: #### L 100.0100, L503.7505, L501.4021, L500.2500 ####[facility] [address] [place], [address] IG% 0.700 Normal 0.0-0.9 [facility] Comment on above: Result Comment: IG% - Immature Granulocytes (promyelocytes, myelocytes andmetamyelocytes) > 1% indicates that a LEFT SHIFT is Present. Performed By: #### L 100.0100, L503.7505, L501.4021, L500.2500 ####[facility] [address] [place], [address] Lymphocytes/100 WBC (Bld) 10.1 % Low 19-41 [facility] Comment on above: Performed By: #### L 100.0100, L503.7505, L501.4021, L500.2500 ####[facility] [address] [place], [address] MCH (RBC) [Entitic mass] 27.0 pg Normal 27.0-32.0 [facility] Comment on above: Performed By: #### L 100.0100, L503.7505, L501.4021, L500.2500 ####[facility] [address] [place], [address] MCHC (RBC) [Mass/Vol] 30.2 g/dL Low 32-36 [facility] Comment on above: Performed By: #### L 100.0100, L503.7505, L501.4021, L500.2500 ####[facility] [address] [place], [address] MCV (RBC) [Entitic vol] 89.3 fL Normal 80-[address] [facility] Comment on above: Performed By: #### L 100.0100, L503.7505, L501.4021, L500.2500 ####[facility] [address] [place], [address] Monocytes/100 WBC (Bld) 9.1 % Normal 0-[address] [facility] Comment on above: Performed By: #### L 100.0100, L503.7505, L501.4021, L500.2500 ####[facility] [address] [place], [address] Neutrophils/100 WBC (Bld) 78.1 % High 47-70 [facility] Comment on above: Performed By: #### L 100.0100, L503.7505, L501.4021, L500.2500 ####[facility] [address] [place], [address] Nucleated RBC (Bld) [#/Vol] 0 10*3/uL Normal 0-5 [facility] Comment on above: Performed By: #### L 100.0100, L503.7505, L501.4021, L500.2500 ####[facility] [address] [place], [address] Platelet mean volume (Bld) [Entitic vol] 10.2 fL Normal 6.2-12.0 [facility] Comment on above: Performed By: #### L 100.0100, L503.7505, L501.4021, L500.2500 ####[facility] [address] [place], [address] Platelets (Bld) [#/Vol] 189 10*3/uL Normal 150-450 [facility] Comment on above: Performed By: #### L 100.0100, L503.7505, L501.4021, L500.2500 ####[facility] [address] [place], [address] RBC (Bld) [#/Vol] 3.74 10*6/uL Low 4.6-6.2 [facility] Comment on above: Performed By: #### L 100.0100, L503.7505, L501.4021, L500.2500 ####[facility] [address] [place], [address] RDW SD 54.2 fl High 35.1-43.9 [facility] Comment on above: Performed By: #### L 100.0100, L503.7505, L501.4021, L500.2500 ####[facility] [address] [place], [address] WBC (Bld) [#/Vol] 7.6 10*3/uL Normal 4.4-11.[address] [facility] Comment on above: Performed By: #### L 100.0100, L503.7505, L501.4021, L500.2500 ####[facility] [address] [place], [address] Carbon dioxide, total [Moles /volume] in Central venous bloodOrdered By: Chris Ochoa on 03-04-2025 CO2 [Moles/Vol] 28.6 mmol/L 21.0-32.0 [facility] Chest PA and Lateralon 03-04 Chest PA and Lateral Normal [facility] Chloride assayOrdered By: Chino Ochoa on 03-04-2025 Chloride [Moles/Vol] 102 mmol/L 98-108 [facility] Echo Complete W/ Contraston 03-04-2025 Echo Complete W/ Contrast Normal [facility] Emergency Department Summary on 03-04-2025 Emergency Department Summary Normal [facility] Eosinophil percentageOrdered By: Chris Ochoa on 03-04-2025 Eosinophils/100 WBC (Bld) 1.6 % 0-5 [facility] Erythrocyte distribution wid th ratioOrdered By: Chris Ochoa on 03-04-2025 Erythrocyte distribution width (RBC) [Ratio] 16.5 % High 11.6-14.6 [facility] Erythrocyte distribution wid th standard deviationOrdered By: Chris Ochoa on 03-04-2025 Erythrocyte distribution width (RBC) [Ratio] 54.2 fl High 35.1-43.9 [facility] Glomerular filtration rate ( GFR) estimation/1.73 sq m using serum, plasma, or whole bOrdered By: Chris Ochoa on 03-04-2025 GFR/1.73 sq M.predicted among non-blacks MDRD (S/P/Bld) [Vol rate/Area] 36 mL/min/{1.73_m2} Low >60 [facility] Comment on above: mL/min/1.73m2 CKD-EP I Creatinine Equation (2020) H AND P Exam - [facility] 03-04-2025 H&P Exam - Hospitalist Normal [facility] Hematocrit Auto (Bld) [Volum e fraction]Ordered By: Chris Ochoa on 03-04-2025 Hematocrit (Bld) [Volume fraction] 33.4 % Low 40-54 [facility] Hemoglobin A1con 03-04-2025 HbA1c (Bld) [Mass fraction] 6.3 % High <=5.6 [facility] Comment on above: Result Comment: Norm al < 5.7 % Prediabetic 5.7 - 6.4 % Diabetic >or= 6.5 % Please note range changes. Performed By: #### L 501.9906, L501.9509, L501.5204 ####[facility] [address] [place], [address] Hemoglobin A1c percentageOrd ered By: Nicola Madison on 03-04-2025 HbA1c (Bld) [Mass fraction] 6.3 % High <5.7 [facility] Comment on above: Normal < 5.7 % Predi abetic 5.7 - 6.4 % Diabetic >or= 6.5 % Please note range changes. Hemoglobin measurementOrdere d By: Chris Ochoa on 03-04-2025 Hemoglobin (Bld) [Mass/Vol] 10.1 g/dL Low 13.0-16.5 [facility] Immature granulocytes/100 WB C Auto (Bld)Ordered By: Chris Ochoa on 03-04-2025 Immature granulocytes/100 WBC (Bld) 0.700 % 0.0-0.9 [facility] Comment on above: IG% - Immature Granu locytes (promyelocytes, myelocytes and metamyelocytes) > 1% indicates that a LEFT SHIFT is Present. Ketones Test strip Ql (U)Ord ered By: Nicola Madison on 03-04-2025 Ketones Ql (U) Negative Negative [facility] L499.0042on 03-04-2025 Trop T High Sen 45 ng/L High <=22 [facility] Comment on above: Performed By: #### L 499.0042 ####[facility] [address] [place], [address] L499.0043on 03-04-2025 Trop T High Sen 42 ng/L High <=22 [facility] Comment on above: Performed By: #### L 499.0043 ####[facility] [address] [place], [address] L501.4021on 03-04-2025 Trop T High Sen 44 ng/L High <=22 [facility] Comment on above: Performed By: #### L 100.0100, L503.7505, L501.4021, L500.2500 ####[facility] [address] [place], [address] L503.7505on 03-04-2025 Natriuretic peptide B (Bld) [Mass/Vol] 3316 pg/mL High <=1800 [facility] Comment on above: Result Comment: Hear t Failure Unlikely: < 300 pg/mLHeart Failure Likely< 50 Years: > 450 pg/mL50-75 Years: > 900 pg/mL>75 Years: > 1800 pg/mL Performed By: #### L 100.0100, L503.7505, L501.4021, L500.2500 ####[facility] [address] [place], [address] MCV (mean corpuscular volume ) determinationOrdered By: Chris Ochoa on 03-04-2025 MCV (RBC) [Entitic vol] 89.3 fL 80-[address] [facility] Magnesiumon 03-04-2025 Magnesium [Mass/Vol] 2.0 mg/dL Normal 1.5-2.2 [facility] Comment on above: Performed By: #### L 501.9985, L501.9520, L501.5200 ####[facility] [address] [facility] [address] [place], [place], [id number] Mean corpuscular hemoglobin (MCH) determinationOrdered By: Chris Ochoa on 03-04-2025 MCH (RBC) [Entitic mass] 27.0 pg 27.0-32.0 [facility] Mean corpuscular hemoglobin concentration (MCHC) determinationOrdered By: Chris Ochoa on 03-04-2025 MCHC (RBC) [Mass/Vol] 30.2 g/dL Low 32-36 [facility] Mean platelet volume determi nationOrdered By: Chris Ochoa on 03-04-2025 Platelet mean volume (Bld) [Entitic vol] 10.2 fL 6.2-12.0 [facility] Microscopic analysis of urin e for red blood cells (RBC)Ordered By: Nicola Madison on 03-04-2025 Microscopic analysis of urine for red blood cells (RBC) 5-10 SEEN /hpf 0-5 [facility] Monocyte percentageOrdered B y: Chris Ochoa on 03-04-2025 Monocytes/100 WBC (Bld) 9.1 % 0-[address] [facility] Mucus LM Ql (Urine sed)Order ed By: Nicola Madison on 03-04-2025 Mucus Ql (Urine sed) 0 SEEN /hpf [facility] Natriuretic peptide.B prohor girish N-Terminal [Mass/volume] in Serum or PlasmaOrdered By: Chris Ochoa on 03-04-2025 Natriuretic peptide.B prohormone N-Terminal [Mass/Vol] 3316 pg/mL High <1800 [facility] Comment on above: Heart Failure Unlike ly: < 300 pg/mLHeart Failure Likely< 50 Years: > 450 pg/mL50-75 Years: > 900 pg/mL>75 Years: > 1800 pg/mL Neutrophil percentageOrdered By: Chris Ochoa on 03-04-2025 Neutrophils/100 WBC (Bld) 78.1 % High 47-70 [facility] Nitrite Test strip Ql (U)Ord ered By: Nicola Madison on 03-04-2025 Nitrite Ql (U) Positive High Negative [facility] Nucleated red blood cell per centageOrdered By: Chris Ochoa on 03-04-2025 Nucleated RBC/100 WBC (Bld) [Ratio] 0 % 0-5 [facility] Platelet countOrdered By: Chino Ochoa on 03-04-2025 Platelets (Bld) [#/Vol] 189 10*3/uL 150-450 [facility] Potassium measurement (mass/ volume)Ordered By: Chris Ochoa on 03-04-2025 Potassium (Unsp spec) [Mass/Vol] 5.2 mmol/L High 3.3-5.1 [facility] Protein Test strip Ql (U)Ord ered By: Nicola Madison on 03-04-2025 Protein Ql (U) 100 mg/dl High Negative [facility] RBC Auto (Bld) [#/Vol]Ordere d By: Chris Ochoa on 03-04-2025 RBC (Bld) [#/Vol] 3.74 10*6/uL Low 4.6-6.2 [facility] Serum creatinine measurement (mass/volume)Ordered By: Chris Ochoa on 03-04-2025 Creatinine [Mass/Vol] 1.86 mg/dL High 0.70-1.20 [facility] Serum glucose measurement (m ass/volume)Ordered By: Chris Ochoa on 03-04-2025 Glucose [Mass/Vol] 124 mg/dL High 70-[address] [facility] Serum or plasma calcium kings[place] urement (mass/volume)Ordered By: Chris Ochoa on 07-16-2025 Calcium [Mass/Vol] 9.3 mg/dL 7.6-11.[address] [facility] Serum or plasma urea nitroge n measurement (mass/volume)Ordered By: Chris Ochoa on 03-04-2025 Urea nitrogen [Mass/Vol] 37 mg/dL High 4-19 [facility] Sodium levelOrdered By: Chris Ochoa on 03-04-2025 Sodium [Moles/Vol] 138 mmol/L 133-[address] [facility] Squamous epithelial cells de tection in urine sediment by light microscopyOrdered By: Nicola Madison on 03-04-2025 Epithelial cells.squamous LM Ql (Urine sed) 0 SEEN /hpf 0-5 [facility] TSH DL <= 0.005 mIU/L QnOrde red By: Nicola Madison on 03-04-2025 TSH Qn 3.780 uIU/mL 0.300-4.20 0 [facility] Thyroid Stim Hormone (TSH)on 03-04-2025 TSH 3.780 uIU/mL Normal 0.300-4.20 0 [facility] Comment on above: Performed By: #### L [id number], [id number], [id number] ####[facility] [id number] [place], [address] Troponin T.cardiac [Mass/vol ume] in Serum or Plasma by High sensitivity methodOrdered By: Chris Ochoa on 03-04-2025 Troponin T.cardiac High sensitivity method [Mass/Vol] 42 ng/L High <22 [facility] Troponin T.cardiac High sensitivity method [Mass/Vol] 45 ng/L High <22 [facility] Troponin T.cardiac High sensitivity method [Mass/Vol] 44 ng/L High <22 [facility] Urinalysis, Completeon 03-04 RBC 5-10 SEEN Normal 0-5 [facility] Comment on above: Order Comment: CLEAN CATCH Performed By: #### L 400.0001 ####[facility] [address] [place], [address] BACTERIA 2+ /hpf Normal None Seen [facility] Comment on above: Order Comment: CLEAN CATCH Performed By: #### L 400.0001 ####[facility] [address] [place], [address] WBC >100 SEEN Normal 0-5 [facility] Comment on above: Order Comment: CLEAN CATCH Performed By: #### L 400.0001 ####[facility] [address] [place], [address] EPI,SQUAMOUS 0 SEEN Normal 0-5 [facility] Comment on above: Order Comment: CLEAN CATCH Performed By: #### L 400.0001 ####[facility] [address] [place], [address] Mucus Ql (Urine sed) 0 SEEN Normal [facility] Comment on above: Order Comment: CLEAN CATCH Performed By: #### L 400.0001 ####[facility] [address] [place], [place], [id number] Urine clarityOrdered By: Jacob Madison on 03-04-2025 Clarity (U) Cloudy Clear [facility] Urine color determinationOrd ered By: Nicola Madison on 03-04-2025 Color (U) Yellow Yellow [facility] Urine glucose detectionOrder ed By: Nicola Madison on 03-04-2025 Glucose Ql (U) Normal mg/dl Normal [facility] Urine leukocyte esterase det ection by dipstickOrdered By: Nicola Madison on 03-04-2025 Leukocyte esterase Test strip Ql (U) 500 /ul High Negative [facility] Urine pHOrdered By: Nicola stack on 03-04-2025 pH (U) 6.5 [pH] 5.0 - 8.0 [facility] Urine sediment bacteria coun t by microscopy (number/high power field)Ordered By: Nicola Madison on 03-04-2025 Bacteria LM.HPF (Urine sed) [#/Area] 2 /[HPF] None Seen [facility] Urine specific gravity measu rementOrdered By: Nicola Madison on 03-04-2025 Specific gravity (U) [Rel density] 1.010 1.002-1.03 0 [facility] Urine urobilinogen measureme ntOrdered By: Nicola Madison on 03-04-2025 Urobilinogen Ql (U) Normal mg/dl Normal [facility] White blood cell (WBC) count Ordered By: Chris Ochoa on 03-04-2025 WBC (Bld) [#/Vol] 7.6 10*3/uL 4.4-11.[address] [facility] White blood cell countOrdere d By: Nicola Madison on 03-04-2025 White blood cell count >100 SEEN /hpf 0- [facility] Absolute lymphocyte countOrd ered By: Russ Zamora on 11-06-2024 Lymphocytes Auto (Unsp spec) [#/Vol] 0.82 10*3/uL Low 0.83-4.51 [facility] Absolute neutrophil countOrd ered By: Russ Zamora on 11-06-2024 Neutrophils (Bld) [#/Vol] 8.1 10*3/uL High 2.0-7.7 [facility] Anion gap in Serum or Plasma Ordered By: Russ Zamora on 11-06-2024 Anion gap [Moles/Vol] 10 mmol/L 5- [facility] Automated lymphocyte count a s percentage of total leukocytesOrdered By: Russ Zamora on 11-06-2024 Lymphocytes/100 WBC Auto (Unsp spec) 8.1 % Low 19-41 [facility] BUN/creatinine ratioOrdered By: Russ Zamora on 11-06-2024 Urea nitrogen/Creatinine [Mass ratio] 19.3 mg/mg 10- [facility] Basophil percentageOrdered B y: Russ Zamora on 11-06-2024 Basophils/100 WBC (Bld) 0.3 % 0-[address] [facility] Bilirubin, totalOrdered By: Russ Zamora on 11-06-2024 Bilirubin [Mass/Vol] 0.46 mg/dL 0.00-1.30 [facility] CBC W/Diff, Automatedon 10-19 Absolute Lymph 0.82 X10 3/uL Low 0.83-4.51 [facility] Comment on above: Performed By: #### L 500.4050, L504.2610, L100.0100 ####[facility] [address] [place], [address] Absolute Neut 8.1 X10 3/uL High 2.0-7.7 [facility] Comment on above: Performed By: #### L 500.4050, L504.2610, L100.0100 ####[facility] [address] [place], [address] Basophils/100 WBC (Bld) 0.3 % Normal 0-[address] [facility] Comment on above: Performed By: #### L 500.4050, L504.2610, L100.0100 ####[facility] [address] [place], [address] Eosinophils/100 WBC (Bld) 1.7 % Normal 0-5 [facility] Comment on above: Performed By: #### L 500.4050, L504.2610, L100.0100 ####[facility] [address] [place], [address] Erythrocyte distribution width (RBC) [Ratio] 16.8 % High 11.6-14.6 [facility] Comment on above: Performed By: #### L 500.4050, L504.2610, L100.0100 ####[facility] [address] [place], [address] Hematocrit (Bld) [Volume fraction] 34.2 % Low 40-54 [facility] Comment on above: Performed By: #### L 500.4050, L504.2610, L100.0100 ####[facility] [address] [place], [address] Hemoglobin (Bld) [Mass/Vol] 10.7 g/dL Low 13.0-16.5 [facility] Comment on above: Performed By: #### L 500.4050, L504.2610, L100.0100 ####[facility] [address] [place], [address] IG% 0.500 Normal 0.0-0.9 [facility] Comment on above: Result Comment: IG% - Immature Granulocytes (promyelocytes, myelocytes andmetamyelocytes) > 1% indicates that a LEFT SHIFT is Present. Performed By: #### L 500.4050, L504.2610, L100.0100 ####[facility] [address] [place], [address] Lymphocytes/100 WBC (Bld) 8.1 % Low 19-41 [facility] Comment on above: Performed By: #### L 500.4050, L504.2610, L100.0100 ####[facility] [address] [place], [address] MCH (RBC) [Entitic mass] 27.4 pg Normal 27.0-32.0 [facility] Comment on above: Performed By: #### L 500.4050, L504.2610, L100.0100 ####[facility] [address] [place], [address] MCHC (RBC) [Mass/Vol] 31.3 g/dL Low 32-36 [facility] Comment on above: Performed By: #### L 500.4050, L504.2610, L100.0100 ####[facility] [address] [place], [address] MCV (RBC) [Entitic vol] 87.5 fL Normal 80-[address] [facility] Comment on above: Performed By: #### L 500.4050, L504.2610, L100.0100 ####[facility] [address] [place], [address] Monocytes/100 WBC (Bld) 8.8 % Normal 0-[address] [facility] Comment on above: Performed By: #### L 500.4050, L504.2610, L100.0100 ####[facility] [address] [place], [address] Neutrophils/100 WBC (Bld) 80.6 % High 47-70 [facility] Comment on above: Performed By: #### L 500.4050, L504.2610, L100.0100 ####[facility] [address] [place], [address] Nucleated RBC (Bld) [#/Vol] 0 10*3/uL Normal 0-5 [facility] Comment on above: Performed By: #### L 500.4050, L504.2610, L100.0100 ####[facility] [address] [place], [address] Platelet mean volume (Bld) [Entitic vol] 10.4 fL Normal 6.2-12.0 [facility] Comment on above: Performed By: #### L 500.4050, L504.2610, L100.0100 ####[facility] [address] [place], [address] Platelets (Bld) [#/Vol] 212 10*3/uL Normal 150-450 [facility] Comment on above: Performed By: #### L 500.4050, L504.2610, L100.0100 ####[facility] [address] [place], [address] RBC (Bld) [#/Vol] 3.91 10*6/uL Low 4.6-6.2 [facility] Comment on above: Performed By: #### L 500.4050, L504.2610, L100.0100 ####[facility] [address] [place], [address] RDW SD 53.5 fl High 35.1-43.9 [facility] Comment on above: Performed By: #### L 500.4050, L504.2610, L100.0100 ####[facility] [address] [place], [address] WBC (Bld) [#/Vol] 10.1 10*3/uL Normal 4.4-11.0 [facility] Comment on above: Performed By: #### L 500.4050, L504.2610, L100.0100 ####[facility] [address] [place], [address] Carbon dioxide, total [Moles /volume] in Central venous bloodOrdered By: Russ Zamora on 11-06-2024 CO2 [Moles/Vol] 25.2 mmol/L 21.0-32.0 [facility] Chloride assayOrdered By: Flores Zamora on 11-06-2024 Chloride [Moles/Vol] 105 mmol/L 98-108 [facility] Comprehensive Metabolic Prof ilon 11-06-2024 Albumin [Mass/Vol] 3.8 g/dL Normal 3.4-4.[address] [facility] Comment on above: Performed By: #### L 500.4050, L504.2610, L100.0100 ####[facility] [address] [place], [address] Albumin/Globulin [Mass ratio] 0.9 {ratio} Normal 0.9-2.4 [facility] Comment on above: Performed By: #### L 500.4050, L504.2610, L100.0100 ####[facility] [address] [place], [address] ALK PHOS 72 U/L Normal 40-129 [facility] Comment on above: Performed By: #### L 500.4050, L504.2610, L100.0100 ####[facility] [address] [place], [address] ALT [Catalytic activity/Vol] 10 U/L Normal <=46 [facility] Comment on above: Performed By: #### L 500.4050, L504.2610, L100.0100 ####[facility] [address] [place], [address] AST [Catalytic activity/Vol] 16 U/L Normal <=37 [facility] Comment on above: Performed By: #### L 500.4050, L504.2610, L100.0100 ####[facility] [address] [place], [address] Bilirubin [Mass/Vol] 0.46 mg/dL Normal 0.00-1.30 [facility] Comment on above: Performed By: #### L 500.4050, L504.2610, L100.0100 ####[facility] [address] [place], [address] BUN/CRE 19.3 RATIO Normal 10-20 [facility] Comment on above: Performed By: #### L 500.4050, L504.2610, L100.0100 ####[facility] [address] [place], [address] Calcium [Mass/Vol] 9.1 mg/dL Normal 7.6-11.[address] [facility] Comment on above: Performed By: #### L 500.4050, L504.2610, L100.0100 ####[facility] [address] [place], [address] Chloride [Moles/Vol] 105 mmol/L Normal 98-108 [facility] Comment on above: Performed By: #### L 500.4050, L504.2610, L100.0100 ####[facility] [address] [place], [address] CO2 [Moles/Vol] 25.2 mmol/L Normal 21.0-32.0 [facility] Comment on above: Performed By: #### L 500.4050, L504.2610, L100.0100 ####[facility] [address] [place], [address] Creatinine [Mass/Vol] 1.87 mg/dL High 0.70-1.20 [facility] Comment on above: Performed By: #### L 500.4050, L504.2610, L100.0100 ####[facility] [address] [place], [address] ECRCL 32.00 ml/min Low 50-250 [facility] Comment on above: Performed By: #### L 500.4050, L504.2610, L100.0100 ####[facility] [address] [place], [address] GAP 10 Normal 5-15 [facility] Comment on above: Performed By: #### L 500.4050, L504.2610, L100.0100 ####[facility] [address] [place], [address] GFR/1.73 sq M.predicted among non-blacks MDRD (S/P/Bld) [Vol rate/Area] 36 mL/min/{1.73_m2} Low >60 [facility] Comment on above: Result Comment: mL/m in/1.73m2 CKD-EPI Creatinine Equation (2020) Performed By: #### L 500.4050, L504.2610, L100.0100 ####[facility] [address] [place], [address] Globulin (S) [Mass/Vol] 4.1 g/dL Normal 2.2-4.[address] [facility] Comment on above: Performed By: #### L 500.4050, L504.2610, L100.0100 ####[facility] [address] [place], [address] Glucose [Mass/Vol] 132 mg/dL High 70-[address] [facility] Comment on above: Performed By: #### L 500.4050, L504.2610, L100.0100 ####[facility] [place] [facility] [address] [place], [address] Potassium [Moles/Vol] 4.8 mmol/L Normal 3.3-5.1 [facility] Comment on above: Performed By: #### L 500.4050, L504.2610, L100.0100 ####[facility] [address] [place], [address] Sodium [Moles/Vol] 140 mmol/L Normal 133-[address] [facility] Comment on above: Performed By: #### L 500.4050, L504.2610, L100.0100 ####[facility] [address] [place], [address] T PROT 7.9 g/dL Normal 5.9-8.4 [facility] Comment on above: Performed By: #### L 500.4050, L504.2610, L100.0100 ####[facility] [address] [place], [address] Urea nitrogen [Mass/Vol] 36 mg/dL High 4-19 [facility] Comment on above: Performed By: #### L 500.4050, L504.2610, L100.0100 ####[facility] [address] [place], [address] Eosinophil percentageOrdered By: Russ Zamora on 11-06-2024 Eosinophils/100 WBC (Bld) 1.7 % 0-5 [facility] Erythrocyte distribution wid th ratioOrdered By: Russ Zamora on 11-06-2024 Erythrocyte distribution width (RBC) [Ratio] 16.8 % High 11.6-14.6 [facility] Erythrocyte distribution wid th standard deviationOrdered By: Russ Zamora on 11-06-2024 Erythrocyte distribution width (RBC) [Entitic vol] 53.5 fL High 35.1-43.9 [facility] Erythrocyte distribution width (RBC) [Ratio] 53.5 fl High 35.1-43.9 [facility] Estimation of creatinine rowdy aranceOrdered By: Russ Zamora on 11-06-2024 Estimated Creatinine Clearance Calc 32.00 ml/min Low 50-250 [facility] GFR/1.73 sq M.predicted kaylyn g non-blacks MDRD (S/P/Bld) [Vol rate/Area]Ordered By: Russ Zamora on 11-06-2024 Estimated GFR (MDRD) Non-Af Amer 36 Low >60 [facility] Comment on above: mL/min/1.73m2 CKD-EP I Creatinine Equation (2020) Glomerular filtration rate ( GFR) estimation/1.73 sq m using serum, plasma, or whole bOrdered By: Russ Zamora on 11-06-2024 GFR/1.73 sq M.predicted among non-blacks MDRD (S/P/Bld) [Vol rate/Area] 36 mL/min/{1.73_m2} Low >60 [facility] Comment on above: mL/min/1.73m2 CKD-EP I Creatinine Equation (2020) Hematocrit Auto (Bld) [Volum e fraction]Ordered By: Russ Zamora on 11-06-2024 Hematocrit (Bld) [Volume fraction] 34.2 % Low 40-54 [facility] Hemoglobin measurementOrdere d By: Russ Zamora on 11-06-2024 Hemoglobin (Bld) [Mass/Vol] 10.7 g/dL Low 13.0-16.5 [facility] Immature granulocytes/100 WB C Auto (Bld)Ordered By: Russ Zamora on 11-06-2024 Immature granulocytes/100 WBC (Bld) 0.500 % 0.0-0.9 [facility] Comment on above: IG% - Immature Granu locytes (promyelocytes, myelocytes and metamyelocytes) > 1% indicates that a LEFT SHIFT is Present. LDHon 11-06-2024 LDH 135 U/L Normal 87-241 [facility] Comment on above: Order Comment: 1 Performed By: #### L 500.4050, L504.2610, L100.0100 ####[facility] [address] [place], [address] Laboratory - Chemistry and C hemistry - challengeOrdered By: Russ Zamora on 11-06-2024 AST [Catalytic activity/Vol] 16 U/L <38 [facility] Lactate dehydrogenase (LDH) measurementOrdered By: Russ Zamora on 11-06-2024 LDH [Catalytic activity/Vol] 135 U/L 87-241 [facility] Lymphocytes Auto (Unsp spec) [#/Vol]Ordered By: Russ Zamora on 11-06-2024 Lymphocytes (Bld) [#/Vol] 0.82 10*3/uL Low 0.83-4.51 [facility] Lymphocytes/100 WBC Auto (Un sp spec)Ordered By: Russ Zamora on 11-06-2024 Lymphocytes/100 WBC (Bld) 8.1 % Low 19-41 [facility] MCV (mean corpuscular volume ) determinationOrdered By: Russ Zamora on 11-06-2024 MCV (RBC) [Entitic vol] 87.5 fL 80-[address] [facility] Mean corpuscular hemoglobin (MCH) determinationOrdered By: Russ Zamora on 11-06-2024 MCH (RBC) [Entitic mass] 27.4 pg 27.0-32.0 [facility] Mean corpuscular hemoglobin concentration (MCHC) determinationOrdered By: Russ Zamora on 11-06-2024 MCHC (RBC) [Mass/Vol] 31.3 g/dL Low 32-36 [facility] Mean platelet volume determi nationOrdered By: Russ Zamora on 11-06-2024 Platelet mean volume (Bld) [Entitic vol] 10.4 fL 6.2-12.0 [facility] Monocyte percentageOrdered B y: Russ Zamora on 11-06-2024 Monocytes/100 WBC (Bld) 8.8 % 0-[address] [facility] Neutrophil percentageOrdered By: Russ Zamora on 11-06-2024 Neutrophils/100 WBC (Bld) 80.6 % High 47-70 [facility] Nucleated red blood cell per centageOrdered By: Russ Zamora on 11-06-2024 Nucleated RBC/100 WBC (Bld) [Ratio] 0 % 0-5 [facility] Oncology Visit Reporton 10-19 Oncology Visit Report Normal [facility] Platelet countOrdered By: Flores Zamora on 11-06-2024 Platelets (Bld) [#/Vol] 212 10*3/uL 150-450 [facility] Potassium (Unsp spec) [Mass/ Vol]Ordered By: Russ Zamora on 11-06-2024 Potassium [Moles/Vol] 4.8 mmol/L 3.3-5.1 [facility] Potassium measurement (mass/ volume)Ordered By: Russ Zamora on 11-06-2024 Potassium (Unsp spec) [Mass/Vol] 4.8 mmol/L 3.3-5.1 [facility] RBC Auto (Bld) [#/Vol]Ordere d By: Russ Zamora on 11-06-2024 RBC (Bld) [#/Vol] 3.91 10*6/uL Low 4.6-6.2 [facility] Serum creatinine measurement (mass/volume)Ordered By: Russ Zamora on 11-06-2024 Creatinine [Mass/Vol] 1.87 mg/dL High 0.70-1.20 [facility] Serum globulin measurementOr dered By: Russ Zamora on 11-06-2024 Globulin (S) [Mass/Vol] 4.1 g/dL 2.2-4.[address] [facility] Serum glucose measurement (m ass/volume)Ordered By: Russ Zamora on 11-06-2024 Glucose [Mass/Vol] 132 mg/dL High 70-[address] [facility] Serum or plasma alanine ortiz otransferase (ALT) measurementOrdered By: Russ Zamora on 11-06-2024 ALT [Catalytic activity/Vol] 10 U/L <47 [facility] Serum or plasma albumin kingsley urement (mass/volume)Ordered By: Russ Zamora on 11-06-2024 Albumin [Mass/Vol] 3.8 g/dL 3.4-4.[address] [facility] Serum or plasma albumin/glob ulin mass ratioOrdered By: Russ Zamora on 11-06-2024 Albumin/Globulin [Mass ratio] 0.9 {ratio} 0.9-2.4 [facility] Serum or plasma alkaline roosevelt sphatase measurementOrdered By: Russ Zamora on 11-06-2024 ALP [Catalytic activity/Vol] 72 U/L 40-129 [facility] Serum or plasma calcium kingsley urement (mass/volume)Ordered By: Russ Zamora on 11-06-2024 Calcium [Mass/Vol] 9.1 mg/dL 7.6-11.[address] [facility] Serum or plasma urea nitroge n measurement (mass/volume)Ordered By: Russ Zamora on 11-06-2024 Urea nitrogen [Mass/Vol] 36 mg/dL High 4-19 [facility] Sodium levelOrdered By: Esau Zamora on 11-06-2024 Sodium [Moles/Vol] 140 mmol/L 133-[address] [facility] Total proteinOrdered By: Frantz Zamora on 11-06-2024 Protein [Mass/Vol] 7.9 g/dL 5.9-8.[address] [facility] White blood cell (WBC) count Ordered By: Russ Zamora on 11-06-2024 WBC (Bld) [#/Vol] 10.1 10*3/uL 4.4-11.0 [facility] CREATININE FINGERSTICKon Creatinine [Mass/Vol] 1.5 mg/dL High 0.70-1.30 [facility] Comment on above: Performed By: #### L 9100.0200 ####[facility] [address] [facility] [place], [place], [id number] GFR/1.73 sq M.predicted among non-blacks MDRD (S/P/Bld) [Vol rate/Area] 48.0000 mL/min/{1.73_m2} Low >60 [facility] Comment on above: Performed By: #### L 9100.0200 ####[facility] [address] [facility] [place], [address] CT Chest AND Abd W/ Contrast on 10-30-2024 CT Chest AND Abd W/ Contrast Normal [facility] Creatinine measurement at be dsideOrdered By: Russ Zamora on 10-30-2024 Creatinine [Mass/Vol] 1.5 mg/dL High 0.70-1.30 [facility] EGFROrdered By: Russ Zamora on 10-30-2024 GFR/1.73 sq M.predicted among non-blacks MDRD (S/P/Bld) [Vol rate/Area] 48.0000 mL/min/{1.73_m2} Low >60 [facility] Pulmonary Visit Reporton Pulmonary Visit Report Normal [facility] Hemoglobin A1con 10-21-2024 HbA1c (Bld) [Mass fraction] 6.6 % Normal <=5.6 [facility] Comment on above: Performed By: #### L 501.9985 ####[facility] [address] [place], [address] Hemoglobin A1c percentageOrd ered By: Tonio Fajardo on 10-20-2024 HbA1c (Bld) [Mass fraction] 6.6 % >5.7 [facility] 6 Minute Walk Teston 025 6 Minute Walk Test Normal [facility] Absolute neutrophil countOrd ered By: Leslie Arriaga on 09-25-2024 Neutrophils (Bld) [#/Vol] 6.7 10*3/uL 2.0-7.7 [facility] BNP (brain natriuretic pepti de measurement)Ordered By: Leslie Arriaga on 09-25-2024 Natriuretic peptide B (Bld) [Mass/Vol] 183.7 pg/mL High 0-100 [facility] BNP,B-Type NATRIURETIC PEPTI Adrienne 09-25-2024 Natriuretic peptide B (Bld) [Mass/Vol] 183.7 pg/mL High 0-100 [facility] Comment on above: Performed By: #### L 503.6620, L500.2500, L100.0100 ####[facility] [address] [place], [address] Basic Metabolic Profile (BMP )on 09-25-2024 BUN/CRE 15.4 RATIO Normal 10-20 [facility] Comment on above: Performed By: #### L 503.6620, L500.2500, L100.0100 ####[facility] [address] [place], [address] CA,Total 9.1 mg/dL Normal 8.5-10.1 [facility] Comment on above: Performed By: #### L 503.6620, L500.2500, L100.0100 ####[facility] [address] [place], [address] Chloride [Moles/Vol] 105 mmol/L Normal 98-107 [facility] Comment on above: Performed By: #### L 503.6620, L500.2500, L100.0100 ####[facility] [address] [place], [address] CO2 [Moles/Vol] 28.0 mmol/L Normal 21.0-32.0 [facility] Comment on above: Performed By: #### L 503.6620, L500.2500, L100.0100 ####[facility] [address] [place], [address] Creatinine [Mass/Vol] 2.21 mg/dL High 0.70-1.30 [facility] Comment on above: Result Comment: The validity of the calculated GFR GFRAA in patients over70 years has not been determined. Clinical correlation isessential. Performed By: #### L 503.6620, L500.2500, L100.0100 ####[facility] [address] [place], [address] EST GFR - AA 37 mL/min Low >60 [facility] Comment on above: Result Comment: Afri can [place] GFR Calc Performed By: #### L 503.6620, L500.2500, L100.0100 ####[facility] [address] [place], [address] GAP 5 Normal 5-15 [facility] Comment on above: Performed By: #### L 503.6620, L500.2500, L100.0100 ####[facility] [address] [place], [address] GFR/1.73 sq M.predicted among non-blacks MDRD (S/P/Bld) [Vol rate/Area] 31 mL/min/{1.73_m2} Low >60 [facility] Comment on above: Result Comment: Non- GFR Calc Performed By: #### L 503.6620, L500.2500, L100.0100 ####[facility] [address] [place], [address] Glucose [Mass/Vol] 127 mg/dL High 74-[address] [facility] Comment on above: Result Comment: Fast ing Glucose result greater than or equal to 126 mg/dLsuggests DIABETES MELLITUS per A.D.A. criteria. Performed By: #### L 503.6620, L500.2500, L100.0100 ####[facility] [address] [place], [address] Potassium [Moles/Vol] 4.3 mmol/L Normal 3.5-5.1 [facility] Comment on above: Performed By: #### L 503.6620, L500.2500, L100.0100 ####[facility] [address] [place], [address] Sodium [Moles/Vol] 138 mmol/L Normal 136-[address] [facility] Comment on above: Performed By: #### L 503.6620, L500.2500, L100.0100 ####[facility] [address] [place], [address] Urea nitrogen [Mass/Vol] 34 mg/dL High 7-18 [facility] Comment on above: Performed By: #### L 503.6620, L500.2500, L100.0100 ####[facility] [address] [place], [address] Basophil percentageOrdered B y: Leslie Arriaga on 09-25-2024 Basophils/100 WBC (Bld) 0.6 % 0-[address] [facility] Blood urea nitrogen (BUN)/cr eatinine ratioOrdered By: Leslie Arriaga on 09-25-2024 Urea nitrogen/Creatinine [Mass ratio] 15.4 mg/mg 10-20 [facility] CBC W/Diff, Automatedon Absolute Lymph 0.91 X10 3/uL Normal 0.83-4.51 [facility] Comment on above: Performed By: #### L 503.6620, L500.2500, L100.0100 ####[facility] [address] [place], [address] Absolute Neut 6.7 X10 3/uL Normal 2.0-7.7 [facility] Comment on above: Performed By: #### L 503.6620, L500.2500, L100.0100 ####[facility] [address] [place], [address] Basophils/100 WBC (Bld) 0.6 % Normal 0-[address] [facility] Comment on above: Performed By: #### L 503.6620, L500.2500, L100.0100 ####[facility] [id number] [place], [address] Eosinophils/100 WBC (Bld) 1.1 % Normal 0-5 [facility] Comment on above: Performed By: #### L 503.6620, L500.2500, L100.0100 ####[facility] [address] [place], [address] Erythrocyte distribution width (RBC) [Ratio] 16.2 % High 11.6-14.6 [facility] Comment on above: Performed By: #### L 503.6620, L500.2500, L100.0100 ####[facility] [id number] [place], [address] Hematocrit (Bld) [Volume fraction] 36.0 % Low 40-54 [facility] Comment on above: Performed By: #### L 503.6620, L500.2500, L100.0100 ####[facility] [id number] [place], [address] Hemoglobin (Bld) [Mass/Vol] 11.1 g/dL Low 13.0-16.5 [facility] Comment on above: Performed By: #### L 503.6620, L500.2500, L100.0100 ####[facility] [id number] [place], [address] IG% 0.700 Normal 0.0-0.9 [facility] Comment on above: Result Comment: IG% - Immature Granulocytes (promyelocytes, myelocytes andmetamyelocytes) > 1% indicates that a LEFT SHIFT is Present. Performed By: #### L 503.6620, L500.2500, L100.0100 ####[facility] [address] [place], [address] Lymphocytes/100 WBC (Bld) 10.4 % Low 19-41 [facility] Comment on above: Performed By: #### L 503.6620, L500.2500, L100.0100 ####[facility] [address] [place], [address] MCH (RBC) [Entitic mass] 27.7 pg Normal 27.0-32.0 [facility] Comment on above: Performed By: #### L 503.6620, L500.2500, L100.0100 ####[facility] [address] [place], [address] MCHC (RBC) [Mass/Vol] 30.8 g/dL Low 32-36 [facility] Comment on above: Performed By: #### L 503.6620, L500.2500, L100.0100 ####[facility] [id number] [place], [address] MCV (RBC) [Entitic vol] 89.8 fL Normal 80-[address] [facility] Comment on above: Performed By: #### L 503.6620, L500.2500, L100.0100 ####[facility] [address] [place], [address] Monocytes/100 WBC (Bld) 10.3 % High 0-[address] [facility] Comment on above: Performed By: #### L 503.6620, L500.2500, L100.0100 ####[facility] [address] [place], [address] Neutrophils/100 WBC (Bld) 76.9 % High 47-70 [facility] Comment on above: Performed By: #### L 503.6620, L500.2500, L100.0100 ####[facility] [address] [place], [address] Nucleated RBC (Bld) [#/Vol] 0 10*3/uL Normal 0-5 [facility] Comment on above: Performed By: #### L 503.6620, L500.2500, L100.0100 ####[facility] [address] [place], [address] Platelet mean volume (Bld) [Entitic vol] 10.5 fL Normal 6.2-12.0 [facility] Comment on above: Performed By: #### L 503.6620, L500.2500, L100.0100 ####[facility] [address] [place], [address] Platelets (Bld) [#/Vol] 256 10*3/uL Normal 150-450 [facility] Comment on above: Performed By: #### L 503.6620, L500.2500, L100.0100 ####[facility] [address] [place], [address] RBC (Bld) [#/Vol] 4.01 10*6/uL Low 4.6-6.2 [facility] Comment on above: Performed By: #### L 503.6620, L500.2500, L100.0100 ####[facility] [address] [place], [address] RDW SD 52.7 fl High 35.1-43.9 [facility] Comment on above: Performed By: #### L 503.6620, L500.2500, L100.0100 ####[facility] [address] [place], [address] WBC (Bld) [#/Vol] 8.7 10*3/uL Normal 4.4-11.[address] [facility] Comment on above: Performed By: #### L 503.6620, L500.2500, L100.0100 ####[facility] [address] [place], [address] Carbon dioxide measurementOr dered By: Leslie Arriaga on 09-25-2024 CO2 [Moles/Vol] 28.0 mmol/L 21.0-32.0 [facility] Cardiology Visit Reporton Cardiology Visit Report Normal [facility] Chest PA and Lateralon 09-25 Chest PA and Lateral Normal [facility] Chloride measurementOrdered By: Leslie Arriaga on 09-25-2024 Chloride [Moles/Vol] 105 mmol/L 98-107 [facility] Eosinophil percentageOrdered By: Leslie Arriaga on 09-25-2024 Eosinophils/100 WBC (Bld) 1.1 % 0-5 [facility] Erythrocyte distribution wid th ratioOrdered By: Leslie Arriaga on 09-25-2024 Erythrocyte distribution width (RBC) [Ratio] 16.2 % High 11.6-14.6 [facility] Erythrocyte distribution wid th standard deviationOrdered By: Leslie Arriaga on 09-25-2024 Erythrocyte distribution width (RBC) [Entitic vol] 52.7 fL High 35.1-43.9 [facility] Estimated glomerular filtrat ion rate (GFR) AmericanOrdered By: Leslie Arriaga on 09-25-2024 Estimated GFR (MDRD) Amer 37 mL/min Low >60 [facility] Comment on above: GFR Calc Glomerular filtration rate ( GFR) estimationOrdered By: Leslie Arriaga on 09-25-2024 Estimated GFR (MDRD) Non-Af Amer 31 mL/min Low >60 [facility] Comment on above: Non- GFR Calc Glucose measurementOrdered B y: Leslie Arriaga on 09-25-2024 Glucose [Mass/Vol] 127 mg/dL High 74-[address] [facility] Comment on above: Fasting Glucose resu lt greater than or equal to 126 mg/dL suggests DIABETES MELLITUS per A.D.A. criteria. Hematocrit Auto (Bld) [Volum e fraction]Ordered By: Leslie Arriaga on 09-25-2024 Hematocrit (Bld) [Volume fraction] 36.0 % Low 40-54 [facility] Hemoglobin measurementOrdere d By: Leslie Arriaga on 09-25-2024 Hemoglobin (Bld) [Mass/Vol] 11.1 g/dL Low 13.0-16.5 [facility] Immature granulocytes/100 WB C Auto (Bld)Ordered By: Leslie Arriaga on 09-25-2024 Immature granulocytes/100 WBC (Bld) 0.700 % 0.0-0.9 [facility] Comment on above: IG% - Immature Granu locytes (promyelocytes, myelocytes and metamyelocytes) > 1% indicates that a LEFT SHIFT is Present. Lymphocytes Auto (Unsp spec) [#/Vol]Ordered By: Leslie Arriaga on 09-25-2024 Lymphocytes (Bld) [#/Vol] 0.91 10*3/uL 0.83-4.51 [facility] Lymphocytes/100 WBC Auto (Un sp spec)Ordered By: Leslie Arriaga on 09-25-2024 Lymphocytes/100 WBC (Bld) 10.4 % Low 19-41 [facility] MCV (mean corpuscular volume ) determinationOrdered By: Leslie Arriaga on 09-25-2024 MCV (RBC) [Entitic vol] 89.8 fL 80-[address] [facility] Mean corpuscular hemoglobin (MCH) determinationOrdered By: Leslie Arriaga on 09-25-2024 MCH (RBC) [Entitic mass] 27.7 pg 27.0-32.0 [facility] Mean corpuscular hemoglobin concentration (MCHC) determinationOrdered By: Leslie Arriaga on 09-25-2024 MCHC (RBC) [Mass/Vol] 30.8 g/dL Low 32-36 [facility] Mean platelet volume determi nationOrdered By: Leslie Arriaga on 09-25-2024 Platelet mean volume (Bld) [Entitic vol] 10.5 fL 6.2-12.0 [facility] Monocyte percentageOrdered B y: Leslie Arriaga on 09-25-2024 Monocytes/100 WBC (Bld) 10.3 % High 0-[address] [facility] Neutrophil percentageOrdered By: Leslie Arriaga on 09-25-2024 Neutrophils/100 WBC (Bld) 76.9 % High 47-70 [facility] Nucleated red blood cell per centageOrdered By: Leslie Arriaga on 09-25-2024 Nucleated RBC/100 WBC (Bld) [Ratio] 0 % 0-5 [facility] Platelet countOrdered By: Linsey Arriaga on 09-25-2024 Platelets (Bld) [#/Vol] 256 10*3/uL 150-450 [facility] Potassium measurementOrdered By: Leslie Arriaga on 09-25-2024 Potassium [Moles/Vol] 4.3 mmol/L 3.5-5.1 [facility] RBC Auto (Bld) [#/Vol]Ordere d By: Leslie Arriaga on 09-25-2024 RBC (Bld) [#/Vol] 4.01 10*6/uL Low 4.6-6.2 [facility] Serum anion gap measurementO rdered By: Leslie Arriaga on 09-25-2024 Anion gap [Moles/Vol] 5 mmol/L 5-15 [facility] Serum or plasma calcium kingsley urement (mass/volume)Ordered By: Leslie Arriaga on 09-25-2024 Calcium [Mass/Vol] 9.1 mg/dL 8.5-10.[address] [facility] Serum or plasma creatinine m easurement (mass/volume)Ordered By: Leslie Arriaga on 09-25-2024 Creatinine [Mass/Vol] 2.21 mg/dL High 0.70-1.30 [facility] Comment on above: The validity of the calculated GFR & GFRAA in patients over 70 years has not been determined. Clinical correlation is essential. Serum or plasma urea nitroge n measurement (mass/volume)Ordered By: Leslie Arriaga on 09-25-2024 Urea nitrogen [Mass/Vol] 34 mg/dL High 7-18 [facility] Sodium levelOrdered By: Brian Arriaga on 09-25-2024 Sodium [Moles/Vol] 138 mmol/L 136-[address] [facility] White blood cell (WBC) count Ordered By: Leslie Arriaga on 09-25-2024 WBC (Bld) [#/Vol] 8.7 10*3/uL 4.4-11.[address] [facility] Culture, Fungus 8482on 08-04 CUF Normal [facility] Comment on above: Performed By: #### M 100.1999, M6.1999, M100.400, M100.3000 ####[facility] [address] [place], [address] Culture, Anaerobic Any Sourc talat 07-09-2024 CUAN Prevotella and Porphyromonas species are generally SUSCEPTIBLE to Cefoxitin, Chloramphenicol, and Metronidazole and are usually RESISTANT to Penicillin. Prevotella oralis Beta Lactamase-Reportable Positive [facility] Comment on above: Performed By: #### M 100.1999, M6.1999, M100.4001, M100.3000 ####[facility] [address] [place], [address] Wound Cultureon 07-05-2024 WC Normal [facility] Comment on above: Performed By: #### M 100.1999, M600.1999, M100.4001, M100.3000 ####[facility] [address] [place], [address] Gram Stainon 07-04-2024 GS Positive [facility] Comment on above: Performed By: #### M 100.2000, M600.2000, M100.4001, M100.3000 ####[facility] [id number] [place], [address] Bacteria identified Anaer cx Nom (Unsp spec)Ordered By: Joaquim Suárez on 07-03-2024 Anaerobic Culture Prevotella oralis Abnormal [facility] Fungus identified Cx Nom (Un sp spec)Ordered By: Joaquim Suárez on 07-03-2024 Fungal Culture Ann-Marie parapsilosis Abnormal [facility] Gram stainOrdered By: Bladimir Suárez on 07-03-2024 Microscopic observation Gram stain Nom (Unsp spec) [facility] Routine wound cultureOrdered By: Joaquim Suárez on 07-03-2024 Wound Culture Staphylococcus pseudintermediu Abnormal [facility] Lower Ext Art Exam w/o Exerc soco 06-17-2024 Lower Ext Art Exam w/o Exercis Normal [facility] Venous Duplex US - Hi Extre mon 06-17-2024 Venous Duplex US - Hi Extrem Normal [facility] Estimated glomerular filtrat ion rate (GFR) AmericanOrdered By: Russ Zamora on 05-05-2024 Estimated GFR (MDRD) Amer 38 mL/min Low >60 [facility] Comment on above: GFR Calc Miscellaneous procedureOrder ed By: Russ Zamora on 01-28-2024 Miscellaneous Test See comment [facility] Comment on above: Sent directly to [facility] per ordering physician. Bacteria identified Cx Nom ( Wound)Ordered By: Joaquim Suárez on 12-24-2023 Wound Culture Staphylococcus pseudintermediu [facility] Wound Culture Enterococcus faecalis [facility] Wound Culture Streptococcus pyogenes [facility] Gram stain for investigation of transfusion reactionOrdered By: Joaquim Suárez on 12-24-2023 Microscopic observation Gram stain Nom (Unsp spec) [facility] Absolute lymphocyte countOrd ered By: Russ Zamora on 11-06-2023 Lymphocytes Auto (Unsp spec) [#/Vol] 0.95 10*3/uL 0.83-4.51 [facility] Addendum DocumentOrdered By: Russ Zamora on 11-06-2023 Serum Immunofixation Comments Comment . [facility] Comment on above: Protein electrophore sis scan will follow via computer,mail, or tableau lead delivery. Albumin Elph [Mass/Vol]Order ed By: Russ Zamora on 11-06-2023 Albumin [Mass/Vol] 3.2 g/dL 2.9-4.[address] [facility] Alpha 1 globulin Elph [Mass/ Vol]Ordered By: Russ Zamora on 11-06-2023 Zcmep-4-Owckycikw (PILY) 0.4 g/dL 0.0-0.[address] [facility] Djhya-4-Dxynbxnkf (PILY) 1.3 g/dL High 0.4-1.[address] [facility] Automated lymphocyte count a s percentage of total leukocytesOrdered By: Russ Zamora on 11-06-2023 Lymphocytes/100 WBC Auto (Unsp spec) 10.5 % 19-41 [facility] Basophil percentageOrdered B y: Russ Zamora on 11-06-2023 Basophils/100 WBC (Bld) 0.6 % 0-[address] [facility] Bilirubin [Mass/Vol] 0.30 mg/dL 0.20-1.00 [facility] Comment on above: For patients on eltr ombopag therapy, use of Dimension [place] TBIL is not recommended. Chloride [Moles/Vol] 105 mmol/L 98-107 [facility] Eosinophils/100 WBC (Bld) 2.1 % 0-5 [facility] Glucose [Mass/Vol] 106 mg/dL 74-[address] [facility] Comment on above: Fasting Glucose resu lt from 100 to 125 mg/dL suggests IMPAIRED HOMEOSTASIS per A.D.A. criteria. Hemoglobin (Bld) [Mass/Vol] 11.5 g/dL 13.0-16.5 [facility] LDH [Catalytic activity/Vol] 170 U/L 87-241 [facility] Monocytes/100 WBC (Bld) 10.7 % 0-[address] [facility] Neutrophils (Bld) [#/Vol] 6.8 10*3/uL 2.0-7.7 [facility] Neutrophils/100 WBC (Bld) 75.2 % 47-70 [facility] Potassium [Moles/Vol] 4.3 mmol/L 3.5-5.1 [facility] Protein [Mass/Vol] 8.2 g/dL 6.4-8.[address] [facility] Sodium [Moles/Vol] 135 mmol/L 136-[address] [facility] WBC (Bld) [#/Vol] 9.0 10*3/uL 4.4-11.[address] [facility] Beta globulin Elph [Mass/Vol ]Ordered By: Russ Zamora on 11-06-2023 Beta-Globulins (PILY) 1.0 g/dL 0.7-1.3 [facility] C-reactive protein measureme nt by high sensitivity methodOrdered By: Russ Zamora on 11-06-2023 C-Reactive Protein Extended Range 22.10 mg/L High 0.0-3.0 [facility] Comment on above: C-Reactive Protein ( CRP) provides useful information for thediagnosis, therapy and monitoring of inflammatory processesand associated diseases. For the evaluation of Relative Riskfor Cardiovascular Disease, a High Sensitivity CRP (HSCRP)should be ordered. C-reactive protein measurement by high sensitivity method 22.10 mg/L High 0.0-3.0 [facility] Comment on above: C-Reactive Protein ( CRP) provides useful information for thediagnosis, therapy and monitoring of inflammatory processesand associated diseases. For the evaluation of Relative Riskfor Cardiovascular Disease, a High Sensitivity CRP (HSCRP)should be ordered. Determination of erythrocyte mean corpuscular volume (MCV)Ordered By: Russ Zamora on 11-06-2023 MCV (RBC) [Entitic vol] 88.0 fL 80-[address] [facility] Erythrocyte distribution wid th ratioOrdered By: Russ Zamora on 11-06-2023 Erythrocyte distribution width (RBC) [Ratio] 15.5 % 11.6-14.6 [facility] Erythrocyte distribution wid th standard deviationOrdered By: Russ Zamora on 11-06-2023 Erythrocyte distribution width (RBC) [Entitic vol] 49.5 fL 35.1-43.9 [facility] Erythrocyte sedimentation ra teOrdered By: Russ Zamora on 11-06-2023 ESR (Bld) [Velocity] 21 mm/h High 0-20 [facility] Gamma globulin Elph [Mass/Vo l]Ordered By: Russ Zamora on 11-06-2023 Gamma Globulins (PILY) 1.8 g/dL 0.4-1.8 [facility] Hematocrit Auto (Bld) [Volum e fraction]Ordered By: Russ Zamora on 11-06-2023 Hematocrit (Bld) [Volume fraction] 36.8 % 40-54 [facility] Hemoglobin (Reticulocytes) [ Entitic mass]Ordered By: Russ Zamora on 11-06-2023 Reticulocyte Hemoglobin Equivalent 31.4 pg 30-35 [facility] Hemoglobin in reticulocytes (mass per reticulocyte)Ordered By: Russ Zamora on 11-06-2023 Hemoglobin (Reticulocytes) [Entitic mass] 31.4 pg 30-35 [facility] IgA [Mass/Vol]Ordered By: Flores Zamora on 11-06-2023 Immunoglobulin A 311 mg/dL 61-437 [facility] IgG [Mass/Vol]Ordered By: Flores Zamora on 11-06-2023 Immunoglobulin G 1529 mg/dL 603-1613 [facility] Immature granulocytes/100 WB C Auto (Bld)Ordered By: Russ Zamora on 11-06-2023 Immature granulocytes/100 WBC (Bld) 0.900 % 0.0-0.9 [facility] Comment on above: IG% - Immature Granu locytes (promyelocytes, myelocytes and metamyelocytes) > 1% indicates that a LEFT SHIFT is Present. Immature reticulocyte fracti onOrdered By: Russ Zamora on 11-06-2023 Immature Reticulocyte Fraction 22.10 % High 3.00-15.90 [facility] Immunoglobulin M measurement Ordered By: Russ Zamora on 11-06-2023 Immunoglobulin M 157 mg/dL High 15-143 [facility] Immunoglobulin light chains. kappa [Mass/Vol]Ordered By: Russ Zamora on 11-06-2023 Free [place] Light Chains, Quant 100.3 mg/L High 3.3-19.4 [facility] Immunoglobulin light chains. kappa/Immunoglobulin light chains.lambda (S) [Mass ratio]Ordered By: Russ Zamora on 11-06-2023 Free [place]/Lambda Light Chain Ratio 1.63 0.26-1.65 [facility] Comment on above: Performed at: [address] [id number] Director: Seb Bertrand PhD, Phone: [phone] Interpretation IEP [Interp]O rdered By: Russ Zamora on 11-06-2023 Immunofixation Screen Comment . [facility] Comment on above: No monoclonality det ected. Interpretation of serum or p lasma protein pattern by immunofixation (narrative resultOrdered By: Russ Zamora on 11-06-2023 Protein Fractions Immunofixation Jose Luis [Interp] Not Observed g/dL Not Observed [facility] - Chemistry and C hemistry - challengeOrdered By: Russ Zamora on 11-06-2023 Albumin/Globulin [Mass ratio] 0.6 {ratio} 0.9-2.4 [facility] ALP [Catalytic activity/Vol] 62 U/L 45-117 [facility] ALT [Catalytic activity/Vol] 17 U/L 16-61 [facility] CO2 [Moles/Vol] 24.0 mmol/L 21.0-32.0 [facility] Urea nitrogen/Creatinine [Mass ratio] 21.9 mg/mg 10-20 [facility] - Hematology and Cell countsOrdered By: Russ Zamora on 11-06-2023 MCH (RBC) [Entitic mass] 27.5 pg 27.0-32.0 [facility] MCHC (RBC) [Mass/Vol] 31.3 g/dL 32-36 [facility] Nucleated RBC/100 WBC (Bld) [Ratio] 0 % 0-5 [facility] Platelet mean volume (Bld) [Entitic vol] 9.1 fL 6.2-12.0 [facility] Platelets (Bld) [#/Vol] 270 10*3/uL 150-450 [facility] Lambda free light chain kingsley urementOrdered By: Russ Zamora on 11-06-2023 Free Lambda Light Chains, Quant 61.5 mg/L High 5.7-26.3 [facility] No Panel InformationOrdered By: Russ Zamora on 11-06-2023 Addendum Document Comment . [facility] Comment on above: Protein electrophore sis scan will follow via computer,mail, or tableau lead delivery. Estimated Creatinine Clearance Calc 31.12 ml/min [facility] Estimated GFR (MDRD) Amer 43 mL/min >60 [facility] Comment on above: GFR Calc Estimated GFR (MDRD) Non-Af Amer 35 mL/min >60 [facility] Comment on above: Non- GFR Calc Protein Fractions Immunofixa tion Jose Luis [Interp]Ordered By: Russ Zamora on 11-06-2023 M-Arash (PILY) Not Observed g/dL Not Observed [facility] RBC Auto (Bld) [#/Vol]Ordere d By: Russ Zamora on 11-06-2023 RBC (Bld) [#/Vol] 4.18 10*6/uL 4.6-6.2 [facility] Reticulocytes Auto (Bld) [#/ Vol]Ordered By: Russ Zamora on 11-06-2023 Reticulocyte Count 2.12 % High 0.5-1.[address] [facility] Reticulocytes/100 RBC (Bld) 2.12 % High 0.5-1.5 [facility] Serum albumin/globulin ratio Ordered By: Russ Zamora on 11-06-2023 Albumin/Globulin (PILY) 0.8 0.7-1.7 [facility] Serum [id number]-[id number]-uwpwsqxx measu rement by electrophoresisOrdered By: Russ Zamora on 11-06-2023 Alpha 1 globulin Elph [Mass/Vol] 0.4 g/dL 0.0-0.4 [facility] Alpha 1 globulin Elph [Mass/Vol] 1.3 g/dL High 0.4-1.0 [facility] Serum globulin measurement ( mass/volume)Ordered By: Russ Zamora on 11-06-2023 Globulin (S) [Mass/Vol] 4.4 g/dL 2.2-3.[address] [facility] Serum immunoglobulin kappa l ight chains/immunoglobulin lambda light chains mass ratioOrdered By: Russ Zamora on 11-06-2023 Immunoglobulin light chains.kappa/Immunoglobu mellissa light chains.lambda (S) [Mass ratio] 1.63 0.26-1.65 [facility] Comment on above: Performed at: [address] [id number] Director: Seb Bertrand PhD, Phone: [phone] Serum or plasma IgA measurem ent (mass/volume)Ordered By: Russ Zamora on 11-06-2023 IgA [Mass/Vol] 311 mg/dL 61-437 [facility] Serum or plasma IgG measurem ent (mass/volume)Ordered By: Russ Zamora on 11-06-2023 IgG [Mass/Vol] 1529 mg/dL 603-1613 [facility] Serum or plasma beta globuli n measurement by electrophoresis (mass/volume)Ordered By: Russ Zamora on 11-06-2023 Beta globulin Elph [Mass/Vol] 1.0 g/dL 0.7-1.3 [facility] Serum or plasma calcium kingsley urement (mass/volume)Ordered By: Russ Zamora on 11-06-2023 Calcium [Mass/Vol] 9.0 mg/dL 8.5-10.[address] [facility] Serum or plasma creatinine m easurement (mass/volume)Ordered By: Russ Zamora on 11-06-2023 Creatinine [Mass/Vol] 1.96 mg/dL 0.70-1.30 [facility] Comment on above: The validity of the calculated GFR & GFRAA in patients over 70 years has not been determined. Clinical correlation is essential. Serum or plasma gamma globul in measurement by electrophoresis (mass/volume)Ordered By: Russ Zamora on 11-06-2023 Gamma globulin Elph [Mass/Vol] 1.8 g/dL 0.4-1.8 [facility] Serum or plasma immunoelectr ophoresis interpretation (nominal result)Ordered By: Russ Zamora on 11-06-2023 Interpretation IEP [Interp] Comment . [facility] Comment on above: No monoclonality det ected. Serum or plasma immunoglobul in kappa light chains measurement (mass/volume)Ordered By: Russ Zamora on 11-06-2023 Immunoglobulin light chains.kappa [Mass/Vol] 100.3 mg/L High 3.3-19.4 [facility] Serum or plasma urea nitroge n measurement (mass/volume)Ordered By: Russ Zamora on 11-06-2023 Urea nitrogen [Mass/Vol] 43 mg/dL 7-18 [facility] Serum or plasma uric acid me asurement (mass/volume)Ordered By: Russ Zamora on 11-06-2023 Urate [Mass/Vol] 6.6 mg/dL 3.5-7.2 [facility] Comment on above: The drugs N-Acetylcy steine and Metamizole may falsely depress this assay. Thin prep Papanicolaou smear with manual screeningOrdered By: Russ Sera on 11-06-2023 Thin prep Papanicolaou smear with manual screening 3.2 g/dL 3.2-5.0 [facility] Thin prep Papanicolaou smear with manual screening 15 U/L 15-37 [facility] Thin prep Papanicolaou smear with manual screening 6 5-15 [facility] Thin prep Papanicolaou smear with manual screening 0.8 0.7-1.7 [facility] Total protein bloodOrdered B y: Russ Walls on 11-06-2023 Protein [Mass/Vol] 7.6 g/dL 6.0-8.[address] [facility] Basophil percentageOrdered B y: Russ [facility] on 10-12-2023 Creatinine [Mass/Vol] 1.5 mg/dL 0.70-1.30 [facility] Laboratory - Chemistry and C hemistry - challengeOrdered By: Russ Zamora on 10-12-2023 GFR/1.73 sq M.predicted among non-blacks MDRD (S/P/Bld) [Vol rate/Area] 49.0000 mL/min/{1.73_m2} >60 [facility] Absolute lymphocyte countOrd ered By: Leslie Arriaga on 07-26-2023 Lymphocytes Auto (Unsp spec) [#/Vol] 1.22 10*3/uL 0.83-4.51 [facility] Assessment of wrist artery p atency prior to arterial punctureOrdered By: Lorie Mart on 07-26-2023 Arterial patency Wrist artery --pre arterial puncture Positive [facility] Base excessOrdered By: Obed Mart on 07-26-2023 Base excess Calc (BldV) [Moles/Vol] -1 mmol/L -2-2 [facility] Basophil percentageOrdered B y: Leslie Arriaga on 07-26-2023 Basophils/100 WBC (Bld) 0.7 % 0-[address] [facility] Chloride [Moles/Vol] 105 mmol/L 98-107 [facility] Eosinophils/100 WBC (Bld) 1.7 % 0-5 [facility] Glucose [Mass/Vol] 99 mg/dL 74-[address] [facility] Neutrophils (Bld) [#/Vol] 9.0 10*3/uL 2.0-7.7 [facility] Neutrophils/100 WBC (Bld) 76.3 % 47-70 [facility] Potassium [Moles/Vol] 4.8 mmol/L 3.5-5.1 [facility] Sodium [Moles/Vol] 135 mmol/L 136-[address] [facility] WBC (Bld) [#/Vol] 11.7 10*3/uL 4.4-11.0 [facility] Basophil percentageOrdered B y: Lorie Mart on 07-26-2023 Basophil percentage 24.8 mmol/L 22-26 [facility] Basophils/100 WBC (Bld) 95 % 95-[address] [facility] Blood erythrocytes count (nu mber/volume)Ordered By: Leslie Arriaga on 07-26-2023 RBC (Bld) [#/Vol] 4.50 10*6/uL 4.6-6.2 [facility] Blood hemoglobin measurement (mass/volume)Ordered By: Leslie Arriaga on 07-26-2023 Hemoglobin (Bld) [Mass/Vol] 12.5 g/dL 13.0-16.5 [facility] Blood lymphocytes/100 leukoc ytesOrdered By: Leslie Arriaga on 07-26-2023 Lymphocytes/100 WBC (Bld) 10.4 % 19-41 [facility] Blood monocytes/100 leukocyt esOrdered By: Leslie Arriaga on 07-26-2023 Monocytes/100 WBC (Bld) 10.2 % 0-[address] [facility] Blood platelet mean volumeOr dered By: Leslie Arriaga on 07-26-2023 Platelet mean volume (Bld) [Entitic vol] 10.6 fL 6.2-12.0 [facility] CO2 (BldA) [Partial pressure ]Ordered By: Lorie Mart on 07-26-2023 CO2 (Bld) [Partial pressure] 42.6 mm[Hg] 35-45 [facility] Determination of erythrocyte mean corpuscular volume (MCV)Ordered By: Leslie Arriaga on 07-26-2023 MCV (RBC) [Entitic vol] 87.6 fL 80-[address] [facility] Hematocrit Auto (Bld) [Volum e fraction]Ordered By: Leslie Arriaga on 07-26-2023 Hematocrit (Bld) [Volume fraction] 39.4 % 40-54 [facility] - Chemistry and C hemistry - challengeOrdered By: Leslie Arriaga on 07-26-2023 CO2 [Moles/Vol] 28.0 mmol/L 21.0-32.0 [facility] Natriuretic peptide B (Bld) [Mass/Vol] 233.5 pg/mL 0-100 [facility] Urea nitrogen/Creatinine [Mass ratio] 25.4 mg/mg 10-20 [facility] - Hematology and Cell countsOrdered By: Leslie Arriaga on 07-26-2023 Erythrocyte distribution width (RBC) [Entitic vol] 52.0 fL 35.1-43.9 [facility] Erythrocyte distribution width (RBC) [Ratio] 16.3 % 11.6-14.6 [facility] Immature granulocytes/100 WBC (Bld) 0.700 % 0.0-0.9 [facility] Comment on above: IG% - Immature Granu locytes (promyelocytes, myelocytes and metamyelocytes) > 1% indicates that a LEFT SHIFT is Present. MCH (RBC) [Entitic mass] 27.8 pg 27.0-32.0 [facility] Nucleated RBC/100 WBC (Bld) [Ratio] 0 % 0-5 [facility] MCHC Auto (RBC) [Mass/Vol]Or dered By: Leslie Arriaga on 07-26-2023 MCHC (RBC) [Mass/Vol] 31.7 g/dL 32-36 [facility] No Panel InformationOrdered By: Leslie Arriaga on 07-26-2023 Estimated GFR (MDRD) Amer 40 mL/min >60 [facility] Comment on above: GFR Calc Estimated GFR (MDRD) Non-Af Amer 33 mL/min >60 [facility] Comment on above: Non- GFR Calc No Panel InformationOrdered By: Lorie Mart on 07-26-2023 Blood Gas Sample Site R Radial [facility] Blood Gas Specimen Type ART [facility] Blood Gas Total CO2 26 mmol/L [facility] Blood Gas Vent Mode Not entered [facility] Oxygen Delivery Device [id number] [facility] Oxygen (BldA) [Partial press ure]Ordered By: Lorie Mart on 07-26-2023 Oxygen (Bld) [Partial pressure] 77 mmHG 75-100 [facility] Platelets bldOrdered By: Markus Arriaga on 07-26-2023 Platelets (Bld) [#/Vol] 264 10*3/uL 150-450 [facility] Serum or plasma calcium [place] urement (mass/volume)Ordered By: Leslie Arriaga on 07-26-2023 Calcium [Mass/Vol] 9.3 mg/dL 8.5-10.[address] [facility] Serum or plasma creatinine m easurement (mass/volume)Ordered By: Leslie Arriaga on 07-26-2023 Creatinine [Mass/Vol] 2.09 mg/dL 0.70-1.30 [facility] Comment on above: The validity of the calculated GFR & GFRAA in patients over 70 years has not been determined. Clinical correlation is essential. Serum or plasma urea nitroge n measurement (mass/volume)Ordered By: Leslie Arriaga on 07-26-2023 Urea nitrogen [Mass/Vol] 53 mg/dL 7-18 [facility] Thin prep Papanicolaou smear with manual screeningOrdered By: Leslie Arriaga on 07-26-2023 Thin prep Papanicolaou smear with manual screening 2 5-15 [facility] pH measurementOrdered By: Pj Mart on 07-26-2023 pH (Unsp spec) 7.37 [pH] 7.35-7.45 [facility] Anaerobic cultureOrdered By: Joaquim Suárez on 06-22-2023 Bacteria identified Anaer cx Nom (Unsp spec) No anaerobic bacteria isolated. [facility] Bacteria identified Cx Nom ( Wound)Ordered By: Joaquim Suárez on 06-22-2023 Wound Culture Staphylococcus epidermidis [facility] Wound Culture Corynebacterium jeikeium [facility] Fungus cultureOrdered By: Flores Suárez on 06-22-2023 Fungus identified Cx Nom (Unsp spec) [facility] Gram stain for investigation of transfusion reactionOrdered By: Joaquim Suárez on 06-22-2023 Microscopic observation Gram stain Nom (Unsp spec) [facility] Glucose Glucometer (BldC) [M ass/Vol]Ordered By: Joaquim Suárez on 06-08-2023 Glucose [Mass/Vol] 72 mg/dL 74-[address] [facility] Comment on above: MANAGEMENT OF PATIEN T CARE PER NURSING PROTOCOL Absolute lymphocyte countOrd ered By: Russ Zamora on 04-17-2023 Lymphocytes Auto (Unsp spec) [#/Vol] 1.02 10*3/uL 0.83-4.51 [facility] Basophil percentageOrdered B y: Russ Zamora on 04-17-2023 Basophils/100 WBC (Bld) 0.5 % 0-[address] [facility] Bilirubin [Mass/Vol] 0.30 mg/dL 0.20-1.00 [facility] Comment on above: For patients on eltr ombopag therapy, use of Dimension [place] TBIL is not recommended. Chloride [Moles/Vol] 102 mmol/L 98-107 [facility] Eosinophils/100 WBC (Bld) 2.6 % 0-5 [facility] Glucose [Mass/Vol] 209 mg/dL 74-[address] [facility] Comment on above: Glucose result great er than or equal to 200 mg/dLsuggests DIABETES MELLITUS per A.D.A. criteria. LDH [Catalytic activity/Vol] 152 U/L 87-241 [facility] Neutrophils (Bld) [#/Vol] 6.0 10*3/uL 2.0-7.7 [facility] Neutrophils/100 WBC (Bld) 74.2 % 47-70 [facility] Potassium [Moles/Vol] 4.3 mmol/L 3.5-5.1 [facility] Protein [Mass/Vol] 7.8 g/dL 6.4-8.[address] [facility] Sodium [Moles/Vol] 136 mmol/L 136-[address] [facility] WBC (Bld) [#/Vol] 8.1 10*3/uL 4.4-11.[address] [facility] Blood erythrocytes count (nu mber/volume)Ordered By: Russ Zamora on 04-17-2023 RBC (Bld) [#/Vol] 4.45 10*6/uL 4.6-6.2 [facility] Blood hemoglobin measurement (mass/volume)Ordered By: Russ Zamora on 04-17-2023 Hemoglobin (Bld) [Mass/Vol] 12.3 g/dL 13.0-16.5 [facility] Blood lymphocytes/100 leukoc ytesOrdered By: Russ Zamora on 04-17-2023 Lymphocytes/100 WBC (Bld) 12.6 % 19-41 [facility] Blood monocytes/100 leukocyt esOrdered By: Russ Zamora on 04-17-2023 Monocytes/100 WBC (Bld) 9.4 % 0-[address] [facility] Blood platelet mean volumeOr dered By: Russ Zamora on 04-17-2023 Platelet mean volume (Bld) [Entitic vol] 9.5 fL 6.2-12.0 [facility] Determination of erythrocyte mean corpuscular volume (MCV)Ordered By: Russ Zamora on 04-17-2023 MCV (RBC) [Entitic vol] 89.9 fL 80-[address] [facility] Hematocrit Auto (Bld) [Volum e fraction]Ordered By: Russ Zamora on 04-17-2023 Hematocrit (Bld) [Volume fraction] 40.0 % 40-54 [facility] Laboratory - Chemistry and C hemistry - challengeOrdered By: Russ Zamora on 04-17-2023 ALP [Catalytic activity/Vol] 58 U/L 45-117 [facility] ALT [Catalytic activity/Vol] 21 U/L 16-61 [facility] CO2 [Moles/Vol] 27.0 mmol/L 21.0-32.0 [facility] Globulin (S) [Mass/Vol] 4.5 g/dL 2.2-4.[address] [facility] Urea nitrogen/Creatinine [Mass ratio] 20.3 mg/mg 10-20 [facility] Laboratory - Hematology and Cell countsOrdered By: Russ Zamora on 04-17-2023 Erythrocyte distribution width (RBC) [Entitic vol] 54.4 fL 35.1-43.9 [facility] Erythrocyte distribution width (RBC) [Ratio] 16.5 % 11.6-14.6 [facility] Immature granulocytes/100 WBC (Bld) 0.700 % 0.0-0.9 [facility] Comment on above: IG% - Immature Granu locytes (promyelocytes, myelocytes and metamyelocytes) > 1% indicates that a LEFT SHIFT is Present. MCH (RBC) [Entitic mass] 27.6 pg 27.0-32.0 [facility] Nucleated RBC/100 WBC (Bld) [Ratio] 0 % 0-5 [facility] MCHC Auto (RBC) [Mass/Vol]Or dered By: Russ Zamora on 04-17-2023 MCHC (RBC) [Mass/Vol] 30.8 g/dL 32-36 [facility] No Panel InformationOrdered By: Russ Zamora on 04-17-2023 Estimated Creatinine Clearance Calc 29.38 ml/min [facility] Estimated GFR (MDRD) Amer 45 mL/min >60 [facility] Comment on above: GFR Calc Estimated GFR (MDRD) Non-Af Amer 37 mL/min >60 [facility] Comment on above: Non- GFR Calc Platelets bldOrdered By: Frantz Zamora on 04-17-2023 Platelets (Bld) [#/Vol] 214 10*3/uL 150-450 [facility] Serum or plasma albumin [place] urement (mass/volume)Ordered By: Russ Zamora on 04-17-2023 Albumin [Mass/Vol] 3.3 g/dL 3.2-5.[address] [facility] Serum or plasma albumin/glob ulin mass ratioOrdered By: Russ Zamora on 04-17-2023 Albumin/Globulin [Mass ratio] 0.7 {ratio} 0.9-2.4 [facility] Serum or plasma calcium [place] urement (mass/volume)Ordered By: Russ Zamora on 04-17-2023 Calcium [Mass/Vol] 9.1 mg/dL 8.5-10.[address] [facility] Serum or plasma creatinine m easurement (mass/volume)Ordered By: Russ Zamora on 04-17-2023 Creatinine [Mass/Vol] 1.87 mg/dL 0.70-1.30 [facility] Comment on above: The validity of the calculated GFR & GFRAA in patients over 70 years has not been determined. Clinical correlation is essential. Serum or plasma urea nitroge n measurement (mass/volume)Ordered By: Russ Zamora on 04-17-2023 Urea nitrogen [Mass/Vol] 38 mg/dL 7-18 [facility] Thin prep Papanicolaou smear with manual screeningOrdered By: Russ Zamora on 04-17-2023 Thin prep Papanicolaou smear with manual screening 16 U/L 15-37 [facility] Thin prep Papanicolaou smear with manual screening 7 5-15 [facility] Basophil percentageOrdered B y: Russ Zamora on 04-10-2023 Creatinine [Mass/Vol] 1.1 mg/dL 0.70-1.30 [facility] No Panel InformationOrdered By: Russ Zamora on 04-10-2023 Bedside Estimated GFR (eGFR) > 60.0000 mL/min >60 [facility] Anaerobic cultureOrdered By: Bonny Glynn on 01-13-2023 Bacteria identified Anaer cx Nom (Unsp spec) No anaerobic bacteria isolated. [facility] Bacteria identified Cx Nom ( Wound)Ordered By: Bonny Glynn on 01-11-2023 Wound Culture [facility] Gram stain for investigation of transfusion reactionOrdered By: Bonny Glynn on 01-09-2023 Microscopic observation Gram stain Nom (Unsp spec) [facility] Anaerobic cultureOrdered By: Bonny Glynn on 01-08-2023 Bacteria identified Anaer cx Nom (Unsp spec) No anaerobic bacteria isolated. [facility] Bacteria identified Cx Nom ( Wound)Ordered By: Bonny Glynn on 01-08-2023 Wound Culture Staphylococcus [facility] Gram stain for investigation of transfusion reactionOrdered By: Bonny Glynn on 01-08-2023 Microscopic observation Gram stain Nom (Unsp spec) [facility] Laboratory - Microbiology an d Antimicrobial susceptibilityOrdered By: Dr. Ochoa on 01-05-2023 Bacteria identified Cx Nom (Bld) No growth in 5 days. [facility] Culture, urineOrdered By: Dr Marianna Ochoa on 01-02-2023 Bacteria identified Cx Nom (U) Culture exhibits no growth. [facility] Influenza virus A and B and SARS-CoV-2 (COVID-19) Ag panel - Upper respiratory specimOrdered By: Dr. Ochoa on 12-31-2022 SARS-CoV-2 & FLU Antigen (Rapid) Influenzae A [facility] Absolute lymphocyte countOrd ered By: Dr. Ochoa on 12-30-2022 Lymphocytes Auto (Unsp spec) [#/Vol] 0.68 10*3/uL 0.83-4.51 [facility] Basophil percentageOrdered B y: Dr. Ochoa on 12-30-2022 Basophil percentage 0-5 SEEN /hpf 0-5 [facility] Basophils/100 WBC (Bld) 0.5 % 0-[address] [facility] Bilirubin [Mass/Vol] 0.50 mg/dL 0.20-1.00 [facility] Comment on above: For patients on eltr ombopag therapy, use of Dimension [place] TBIL is not recommended. Chloride [Moles/Vol] 102 mmol/L 98-107 [facility] Eosinophils/100 WBC (Bld) 0.2 % 0-5 [facility] Glucose [Mass/Vol] 119 mg/dL 74-[address] [facility] Comment on above: Fasting Glucose resu lt from 100 to 125 mg/dL suggests IMPAIRED HOMEOSTASIS per A.D.A. criteria. Lactate [Moles/Vol] 1.4 mmol/L 0.4-2.0 [facility] Neutrophils (Bld) [#/Vol] 8.8 10*3/uL 2.0-7.7 [facility] Neutrophils/100 WBC (Bld) 83.3 % 47-70 [facility] Potassium [Moles/Vol] 5.2 mmol/L 3.5-5.1 [facility] Protein [Mass/Vol] 8.2 g/dL 6.4-8.[address] [facility] Sodium [Moles/Vol] 134 mmol/L 136-[address] [facility] WBC (Bld) [#/Vol] 10.6 10*3/uL 4.4-11.0 [facility] Bilirubin Test strip Ql (U)O rdered By: Dr. Ochoa on 12-30-2022 Bilirubin Ql (U) Negative Negative [facility] Blood erythrocytes count (nu mber/volume)Ordered By: Dr. Ochoa on 12-30-2022 RBC (Bld) [#/Vol] 4.36 10*6/uL 4.6-6.2 [facility] Blood hemoglobin measurement (mass/volume)Ordered By: Dr. Ochoa on 12-30-2022 Hemoglobin (Bld) [Mass/Vol] 12.1 g/dL 13.0-16.5 [facility] Blood lymphocytes/100 leukoc ytesOrdered By: Dr. Ochoa on 12-30-2022 Lymphocytes/100 WBC (Bld) 6.4 % 19-41 [facility] Blood monocytes/100 leukocyt esOrdered By: Dr. Ochoa on 12-30-2022 Monocytes/100 WBC (Bld) 9.1 % 0-[address] [facility] Blood platelet mean volumeOr dered By: Dr. Ochoa on 12-30-2022 Platelet mean volume (Bld) [Entitic vol] 10.2 fL 6.2-12.0 [facility] Culture, urineOrdered By: Chino Ochoa on 12-30-2022 Bacteria identified Cx Nom (U) Culture exhibits no growth. [facility] Determination of erythrocyte mean corpuscular volume (MCV)Ordered By: Dr. Ochoa on 12-30-2022 MCV (RBC) [Entitic vol] 87.2 fL 80-[address] [facility] Hematocrit Auto (Bld) [Volum e fraction]Ordered By: Dr. Ochoa on 12-30-2022 Hematocrit (Bld) [Volume fraction] 38.0 % 40-54 [facility] INR in Blood by Coagulation assayOrdered By: Dr. Ochoa on 12-30-2022 INR Coag (Bld) [Relative time] 1.3 {INR} [facility] Influenza virus A and B and SARS-CoV-2 (COVID-19) Ag panel - Upper respiratory specimOrdered By: Chris Ochoa on 12-30-2022 SARS-CoV-2 & FLU Antigen (Rapid) Influenzae A [facility] Ketones Test strip Ql (U)Ord ered By: Dr. Ochoa on 12-30-2022 Ketones Ql (U) Negative Negative [facility] Laboratory - Chemistry and C hemistry - challengeOrdered By: Dr. Ochoa on 12-30-2022 ALP [Catalytic activity/Vol] 53 U/L 45-117 [facility] ALT [Catalytic activity/Vol] 22 U/L 16-61 [facility] CO2 [Moles/Vol] 25.0 mmol/L 21.0-32.0 [facility] Globulin (S) [Mass/Vol] 4.7 g/dL 2.2-4.[address] [facility] Urea nitrogen/Creatinine [Mass ratio] 22.0 mg/mg 10-20 [facility] Laboratory - CoagulationOrde red By: Dr. Ochoa on 12-30-2022 aPTT Coag (Bld) [Time] 38.9 s 24.1-36.2 [facility] PT Coag (PPP) [Time] 15.8 s 11.7-14.9 [facility] Laboratory - Hematology and Cell countsOrdered By: Dr. Ochoa on 12-30-2022 Erythrocyte distribution width (RBC) [Entitic vol] 50.5 fL 35.1-43.9 [facility] Erythrocyte distribution width (RBC) [Ratio] 15.9 % 11.6-14.6 [facility] Immature granulocytes/100 WBC (Bld) 0.500 % 0.0-0.9 [facility] Comment on above: IG% - Immature Granu locytes (promyelocytes, myelocytes and metamyelocytes) > 1% indicates that a LEFT SHIFT is Present. MCH (RBC) [Entitic mass] 27.8 pg 27.0-32.0 [facility] Nucleated RBC/100 WBC (Bld) [Ratio] 0 % 0-5 [facility] Laboratory - Microbiology an d Antimicrobial susceptibilityOrdered By: Chris Ochoa on 12-30-2022 Bacteria identified Cx Nom (Bld) No growth in 5 days. [facility] MCHC Auto (RBC) [Mass/Vol]Or dered By: Dr. Ochoa on 12-30-2022 MCHC (RBC) [Mass/Vol] 31.8 g/dL 32-36 [facility] Mucus LM Ql (Urine sed)Order ed By: Dr. Ochoa on 12-30-2022 Mucus Ql (Urine sed) 0 SEEN /hpf [facility] Nitrite Test strip Ql (U)Ord ered By: Dr. Ochoa on 12-30-2022 Nitrite Ql (U) Negative Negative [facility] No Panel InformationOrdered By: Dr. Ochoa on 12-30-2022 Estimated Creatinine Clearance Calc 27.91 ml/min [facility] Estimated GFR (MDRD) Amer 42 mL/min >60 [facility] Comment on above: GFR Calc Estimated GFR (MDRD) Non-Af Amer 35 mL/min >60 [facility] Comment on above: Non- GFR Calc Platelets bldOrdered By: Dr. Ochoa on 12-30-2022 Platelets (Bld) [#/Vol] 210 10*3/uL 150-450 [facility] Protein Test strip Ql (U)Ord ered By: Dr. Ochoa on 12-30-2022 Protein Ql (U) 100 mg/dl Negative [facility] Serum or plasma albumin [place] urement (mass/volume)Ordered By: Dr. Ochoa on 12-30-2022 Albumin [Mass/Vol] 3.5 g/dL 3.2-5.[address] [facility] Serum or plasma albumin/glob ulin mass ratioOrdered By: Dr. Ochoa on 12-30-2022 Albumin/Globulin [Mass ratio] 0.7 {ratio} 0.9-2.4 [facility] Serum or plasma calcium [place] urement (mass/volume)Ordered By: Dr. Ochoa on 12-30-2022 Calcium [Mass/Vol] 9.2 mg/dL 8.5-10.[address] [facility] Serum or plasma creatinine m easurement (mass/volume)Ordered By: Dr. Ochoa on 12-30-2022 Creatinine [Mass/Vol] 2.00 mg/dL 0.70-1.30 [facility] Comment on above: The validity of the calculated GFR & GFRAA in patients over 70 years has not been determined. Clinical correlation is essential. Serum or plasma urea nitroge n measurement (mass/volume)Ordered By: Dr. Ochoa on 12-30-2022 Urea nitrogen [Mass/Vol] 44 mg/dL 7-18 [facility] Squamous epithelial cells de tection in urine sediment by light microscopyOrdered By: Dr. Ochoa on 12-30-2022 Epithelial cells.squamous LM Ql (Urine sed) 0 SEEN /hpf 0-5 [facility] Thin prep Papanicolaou smear with manual screeningOrdered By: Dr. Ochoa on 12-30-2022 Thin prep Papanicolaou smear with manual screening 22 U/L 15-37 [facility] Thin prep Papanicolaou smear with manual screening 7 5-15 [facility] Urine blood detectionOrdered By: Dr. Ochoa on 12-30-2022 RBC Ql (U) 25 /ul Negative [facility] RBC Ql (U) 0 SEEN /hpf 0-5 [facility] Urine clarityOrdered By: Dr. Ochoa on 12-30-2022 Clarity (U) Clear Clear [facility] Urine color determinationOrd ered By: Dr. Ochoa on 12-30-2022 Color (U) Yellow Yellow [facility] Urine glucose detectionOrder ed By: Dr. Ochoa on 12-30-2022 Glucose Ql (U) Normal mg/dl Normal [facility] Urine leukocyte esterase det ection by dipstickOrdered By: Dr. Ochoa on 12-30-2022 Leukocyte esterase Test strip Ql (U) 25 /ul Negative [facility] Urine pHOrdered By: Dr. Amy chowdhury on 12-30-2022 pH (U) 7.0 [pH] 5.0 - 8.0 [facility] Urine sediment bacteria coun t by microscopy (number/high power field)Ordered By: Dr. Ochoa on 12-30-2022 Bacteria LM.HPF (Urine sed) [#/Area] 0 /[HPF] None Seen [facility] Urine specific gravity measu rementOrdered By: Dr. Ochoa on 12-30-2022 Specific gravity (U) [Rel density] 1.005 1.002-1.03 0 [facility] Urobilinogen Auto test strip Ql (U)Ordered By: Dr. Ochoa on 12-30-2022 Urobilinogen Ql (U) Normal mg/dl Normal [facility] Absolute lymphocyte countOrd ered By: Dr. Zamora on 10-16-2022 Lymphocytes Auto (Unsp spec) [#/Vol] 1.25 10*3/uL 0.83-4.51 [facility] Basophil percentageOrdered B y: Dr. Zamora on 10-16-2022 Basophils/100 WBC (Bld) 0.6 % 0-[address] [facility] Bilirubin [Mass/Vol] 0.30 mg/dL 0.20-1.00 [facility] Comment on above: For patients on eltr ombopag therapy, use of Dimension [place] TBIL is not recommended. Chloride [Moles/Vol] 106 mmol/L 98-107 [facility] Eosinophils/100 WBC (Bld) 1.4 % 0-5 [facility] Glucose [Mass/Vol] 225 mg/dL 74-[address] [facility] Comment on above: Glucose result great er than or equal to 200 mg/dLsuggests DIABETES MELLITUS per A.D.A. criteria. LDH [Catalytic activity/Vol] 135 U/L 87-241 [facility] Neutrophils (Bld) [#/Vol] 5.1 10*3/uL 2.0-7.7 [facility] Neutrophils/100 WBC (Bld) 70.2 % 47-70 [facility] Potassium [Moles/Vol] 4.5 mmol/L 3.5-5.1 [facility] Protein [Mass/Vol] 7.8 g/dL 6.4-8.[address] [facility] Sodium [Moles/Vol] 139 mmol/L 136-[address] [facility] WBC (Bld) [#/Vol] 7.3 10*3/uL 4.4-11.[address] [facility] Blood erythrocytes count (nu mber/volume)Ordered By: Dr. Zamora on 10-16-2022 RBC (Bld) [#/Vol] 3.94 10*6/uL 4.6-6.2 [facility] Blood hemoglobin measurement (mass/volume)Ordered By: Dr. Zamora on 10-16-2022 Hemoglobin (Bld) [Mass/Vol] 11.5 g/dL 13.0-16.5 [facility] Blood lymphocytes/100 leukoc ytesOrdered By: Dr. Zamora on 10-16-2022 Lymphocytes/100 WBC (Bld) 17.2 % 19-41 [facility] Blood monocytes/100 leukocyt esOrdered By: Dr. Zamora on 10-16-2022 Monocytes/100 WBC (Bld) 9.8 % 0-[address] [facility] Blood platelet mean volumeOr dered By: Dr. Zamora on 10-16-2022 Platelet mean volume (Bld) [Entitic vol] 9.9 fL 6.2-12.0 [facility] Determination of erythrocyte mean corpuscular volume (MCV)Ordered By: Dr. Zamora on 10-16-2022 MCV (RBC) [Entitic vol] 91.1 fL 80-[address] [facility] Hematocrit Auto (Bld) [Volum e fraction]Ordered By: Dr. Zamora on 10-16-2022 Hematocrit (Bld) [Volume fraction] 35.9 % 40-54 [facility] Laboratory - Chemistry and C hemistry - challengeOrdered By: Dr. Zamora on 10-16-2022 ALP [Catalytic activity/Vol] 52 U/L 45-117 [facility] ALT [Catalytic activity/Vol] 19 U/L 16-61 [facility] CO2 [Moles/Vol] 26.0 mmol/L 21.0-32.0 [facility] Globulin (S) [Mass/Vol] 4.5 g/dL 2.2-4.[address] [facility] Urea nitrogen/Creatinine [Mass ratio] 17.5 mg/mg 10-20 [facility] - Hematology and Cell countsOrdered By: Dr. Zamora on 10-16-2022 Erythrocyte distribution width (RBC) [Entitic vol] 50.4 fL 35.1-43.9 [facility] Erythrocyte distribution width (RBC) [Ratio] 15.2 % 11.6-14.6 [facility] Immature granulocytes/100 WBC (Bld) 0.800 % 0.0-0.9 [facility] Comment on above: IG% - Immature Granu locytes (promyelocytes, myelocytes and metamyelocytes) > 1% indicates that a LEFT SHIFT is Present. MCH (RBC) [Entitic mass] 29.2 pg 27.0-32.0 [facility] Nucleated RBC/100 WBC (Bld) [Ratio] 0 % 0-5 [facility] MCHC Auto (RBC) [Mass/Vol]Or dered By: Dr. Zamora on 10-16-2022 MCHC (RBC) [Mass/Vol] 32.0 g/dL 32-36 [facility] No Panel InformationOrdered By: Dr. Zamora on 10-16-2022 Estimated GFR (MDRD) Amer 45 mL/min >60 [facility] Comment on above: GFR Calc Estimated GFR (MDRD) Non-Af Amer 37 mL/min >60 [facility] Comment on above: Non- GFR Calc Platelets bldOrdered By: Dr. Zamora on 10-16-2022 Platelets (Bld) [#/Vol] 193 10*3/uL 150-450 [facility] Serum or plasma albumin kings[place] urement (mass/volume)Ordered By: Dr. Zamora on 10-16-2022 Albumin [Mass/Vol] 3.3 g/dL 3.2-5.[address] [facility] Serum or plasma albumin/glob ulin mass ratioOrdered By: Dr. Zamora on 10-16-2022 Albumin/Globulin [Mass ratio] 0.7 {ratio} 0.9-2.4 [facility] Serum or plasma calcium kings[place] urement (mass/volume)Ordered By: Dr. Zamora on 10-16-2022 Calcium [Mass/Vol] 9.3 mg/dL 8.5-10.[address] [facility] Serum or plasma creatinine m easurement (mass/volume)Ordered By: Dr. Zamora on 10-16-2022 Creatinine [Mass/Vol] 1.89 mg/dL 0.70-1.30 [facility] Comment on above: The validity of the calculated GFR & GFRAA in patients over 70 years has not been determined. Clinical correlation is essential. Serum or plasma urea nitroge n measurement (mass/volume)Ordered By: Dr. Zamora on 10-16-2022 Urea nitrogen [Mass/Vol] 33 mg/dL 7-18 [facility] Thin prep Papanicolaou smear with manual screeningOrdered By: Dr. Zamora on 10-16-2022 Thin prep Papanicolaou smear with manual screening 17 U/L 15-37 [facility] Thin prep Papanicolaou smear with manual screening 7 5-15 [facility] Basophil percentageOrdered B y: Dr. Zamora on 10-09-2022 Creatinine [Mass/Vol] 1.4 mg/dL 0.70-1.30 [facility] Laboratory - Chemistry and C hemistry - challengeOrdered By: Dr. Zamora on 10-09-2022 GFR/1.73 sq M.predicted among non-blacks MDRD (S/P/Bld) [Vol rate/Area] 52.0000 mL/min/{1.73_m2} >60 [facility] Culture, urineOrdered By: St gillian Glynn on 10-04-2022 Bacteria identified Cx Nom (U) Staphylococcus epidermidis [facility] Bacteria identified Cx Nom (U) GNR lactose medical billing assistant [facility] Bilirubin Test strip Ql (U)O rdered By: Bonny Glynn on 10-02-2022 Bilirubin Ql (U) Negative Negative [facility] Ketones Test strip Ql (U)Ord ered By: Bonny Glynn on 10-02-2022 Ketones Ql (U) Negative Negative [facility] Nitrite Test strip Ql (U)Ord ered By: Bonny Glynn on 10-02-2022 Nitrite Ql (U) Positive Negative [facility] Protein Test strip Ql (U)Ord ered By: Bonny Glynn on 10-02-2022 Protein Ql (U) 100 mg/dl Negative [facility] Urine blood detectionOrdered By: Bonny Glynn on 10-02-2022 RBC Ql (U) 25 /ul Negative [facility] Urine clarityOrdered By: Ysabel Glynn on 10-02-2022 Clarity (U) Cloudy Clear [facility] Urine color determinationOrd ered By: Bonny Glynn on 10-02-2022 Color (U) Yellow Yellow [facility] Urine glucose detectionOrder ed By: Bonny Glynn on 10-02-2022 Glucose Ql (U) 50 mg/dl Normal [facility] Urine leukocyte esterase det ection by dipstickOrdered By: Bonny Glynn on 10-02-2022 Leukocyte esterase Test strip Ql (U) 500 /ul Negative [facility] Urine pHOrdered By: Bonny orosco on 10-02-2022 pH (U) 6.0 [pH] 5.0 - 8.0 [facility] Urine specific gravity measu rementOrdered By: Bonny Glynn on 10-02-2022 Specific gravity (U) [Rel density] 1.010 1.002-1.03 0 [facility] Urobilinogen Auto test strip Ql (U)Ordered By: Bonny Glynn on 10-02-2022 Urobilinogen Ql (U) Normal mg/dl Normal [facility] Adriana 07-28-2022 CNPN Telephone (UCWSTR) -- PEDRO HILLMAN ([id number]) 1945 M Date Time Provider Department 07/28/22 [...] Status:Closed by STEVEN MELGAR on 08/09/22 Normal [facility] Anaerobic cultureOrdered By: Bonny Glynn on 07-21-2022 Bacteria identified Anaer cx Nom (Unsp spec) No anaerobic bacteria isolated. [facility] Bacteria identified Cx Nom ( Wound)Ordered By: Bonny Glynn on 07-20-2022 Wound Culture Staphylococcus pseudintermediu [facility] Gram stain for investigation of transfusion reactionOrdered By: Bonny Glynn on 07-19-2022 Microscopic observation Gram stain Nom (Unsp spec) [facility] No Panel InformationOrdered By: Dr. Choi on 06-01-2022 Estimated GFR (MDRD) Amer 63 mL/min >60 [facility] Comment on above: GFR Calc Estimated GFR (MDRD) Non-Af Amer 52 mL/min >60 [facility] Comment on above: Non- GFR Calc Serum or plasma creatinine m easurement (mass/volume)Ordered By: Dr. Choi on 06-01-2022 Creatinine [Mass/Vol] 1.40 mg/dL 0.70-1.30 [facility] Comment on above: The validity of the calculated GFR & GFRAA in patients over 70 years has not been determined. Clinical correlation is essential. Basophil percentageon 2021 Basophil percentage < 0.9 mg/dL 0.70-1.30 [facility] Work Phone: No Panel Informationon 05-22 Bedside Estimated GFR (eGFR) > 60.0000 mL/min >60 [facility] Work Phone: Absolute lymphocyte counton 04-14-2022 Lymphocytes Auto (Unsp spec) [#/Vol] 0.64 10*3/uL 0.83-4.51 [facility] Work Phone: [phone] Basophil percentageon 2021 Basophil percentage 0 SEEN /hpf 0-5 [facility] Work Phone: Basophils/100 WBC (Bld) 0.3 % 0-[address] [facility] Work Phone: [phone] Bilirubin [Mass/Vol] 0.50 mg/dL 0.20-1.00 [facility] Work Phone: [phone] Comment on above: For patients on eltr ombopag therapy, use of Dimension [place] TBIL is not recommended. Chloride [Moles/Vol] 103 mmol/L 98-107 [facility] Work Phone: Eosinophils/100 WBC (Bld) 0.5 % 0-5 [facility] Work Phone: [phone] Glucose [Mass/Vol] 46 mg/dL 74-[address] [facility] Work Phone: Comment on above: Glucose result less than 50 mg/dL suggests HYPOGLYCEMIA. Neutrophils (Bld) [#/Vol] 5.0 10*3/uL 2.0-7.7 [facility] Work Phone: [phone] Neutrophils/100 WBC (Bld) 76.1 % 47-70 [facility] Work Phone: [phone] Potassium [Moles/Vol] 4.2 mmol/L 3.5-5.1 [facility] Work Phone: [phone] Protein [Mass/Vol] 8.2 g/dL 6.4-8.[address] [facility] Work Phone: [phone] Sodium [Moles/Vol] 136 mmol/L 136-[address] [facility] Work Phone: [phone] WBC (Bld) [#/Vol] 6.6 10*3/uL 4.4-11.[address] [facility] Work Phone: [phone] Bilirubin Test strip Ql (U)o n 04-14-2022 Bilirubin Ql (U) Negative Negative [facility] Work Phone: [phone] Blood erythrocytes count (nu mber/volume)on 04-14-2022 RBC (Bld) [#/Vol] 5.00 10*6/uL 4.6-6.2 [facility] Work Phone: Blood hemoglobin measurement (mass/volume)on 04-14-2022 Hemoglobin (Bld) [Mass/Vol] 13.9 g/dL 13.0-16.5 [facility] Work Phone: Blood lymphocytes/100 leukoc yteson 04-14-2022 Lymphocytes/100 WBC (Bld) 9.7 % 19-41 [facility] Work Phone: Blood monocytes/100 leukocyt eson 04-14-2022 Monocytes/100 WBC (Bld) 12.3 % 0-[address] [facility] Work Phone: Blood platelet mean volumeon 04-14-2022 Platelet mean volume (Bld) [Entitic vol] 10.5 fL 6.2-12.0 [facility] Work Phone: Determination of erythrocyte mean corpuscular volume (MCV)on 04-14-2022 MCV (RBC) [Entitic vol] 86.4 fL 80-[address] [facility] Work Phone: Glucose Glucometer (BldC) [M ass/Vol]on 04-14-2022 Glucose [Mass/Vol] 113 mg/dL 74-[address] [facility] Work Phone: Comment on above: MANAGEMENT OF PATIEN T CARE PER NURSING PROTOCOL Hematocrit Auto (Bld) [Volum e fraction]on 04-14-2022 Hematocrit (Bld) [Volume fraction] 43.2 % 40-54 [facility] Work Phone: INR in Blood by Coagulation assayon 04-14-2022 INR Coag (Bld) [Relative time] 1.1 {INR} [facility] Work Phone: Ketones Test strip Ql (U)on 04-14-2022 Ketones Ql (U) 5 mg/dl Negative [facility] Work Phone: Laboratory - Chemistry and C hemistry - challengeon 04-14-2022 ALP [Catalytic activity/Vol] 63 U/L 45-117 [facility] Work Phone: ALT [Catalytic activity/Vol] 29 U/L 16-61 [facility] Work Phone: CO2 [Moles/Vol] 25.0 mmol/L 21.0-32.0 [facility] Work Phone: [phone] Globulin (S) [Mass/Vol] 5.1 g/dL 2.2-4.[address] [facility] Work Phone: [phone] Urea nitrogen/Creatinine [Mass ratio] 37.6 mg/mg 10-20 [facility] Work Phone: [phone] Laboratory - Coagulationon 0 04-14-2022 PT Coag (PPP) [Time] 14.0 s 11.7-14.9 [facility]: [phone] Laboratory - Hematology and Cell countson 04-14-2022 Erythrocyte distribution width (RBC) [Entitic vol] 49.0 fL 35.1-43.9 [facility] Work Phone: [phone] Erythrocyte distribution width (RBC) [Ratio] 15.4 % 11.6-14.6 [facility] Work Phone: [phone] Immature granulocytes/100 WBC (Bld) 1.100 % 0.0-0.9 [facility] Work Phone: [phone] Comment on above: IG% - Immature Granu locytes (promyelocytes, myelocytes and metamyelocytes) > 1% indicates that a LEFT SHIFT is Present. MCH (RBC) [Entitic mass] 27.8 pg 27.0-32.0 [facility] Work Phone: [phone] Nucleated RBC/100 WBC (Bld) [Ratio] 0 % 0-5 [facility] Work Phone: MCHC Auto (RBC) [Mass/Vol]on 04-14-2022 MCHC (RBC) [Mass/Vol] 32.2 g/dL 32-36 [facility]: [phone] Mucus LM Ql (Urine sed)on Mucus Ql (Urine sed) 0 SEEN /hpf [facility] Work Phone: Nitrite Test strip Ql (U)on 04-14-2022 Nitrite Ql (U) Negative Negative [facility] Work Phone: No Panel Informationon 04-14 Estimated Creatinine Clearance Calc 35.56 ml/min [facility] Work Phone: Estimated GFR (MDRD) Amer 55 mL/min >60 [facility] Work Phone: Comment on above: GFR Calc Estimated GFR (MDRD) Non-Af Amer 46 mL/min >60 [facility] Work Phone: Comment on above: Non- GFR Calc Platelets bldon 04-14-2022 Platelets (Bld) [#/Vol] 293 10*3/uL 150-450 [facility] Work Phone: [phone] Platelets (Bld) [#/Vol] 287 10*3/uL 150-450 [facility] Work Phone: [phone] Protein Test strip Ql (U)on 04-14-2022 Protein Ql (U) 30 mg/dl Negative [facility] Work Phone: [phone] Serum or plasma albumin kingsley urement (mass/volume)on 04-14-2022 Albumin [Mass/Vol] 3.1 g/dL 3.2-5.[address] [facility] Work Phone: [phone] Serum or plasma albumin/glob ulin mass ratioon 04-14-2022 Albumin/Globulin [Mass ratio] 0.6 {ratio} 0.9-2.4 [facility] Work Phone: [phone] Serum or plasma calcium kingsley urement (mass/volume)on 04-14-2022 Calcium [Mass/Vol] 9.9 mg/dL 8.5-10.[address] [facility] Work Phone: [phone] Serum or plasma creatinine m easurement (mass/volume)on 04-14-2022 Creatinine [Mass/Vol] 1.57 mg/dL 0.70-1.30 [facility] Work Phone: Comment on above: The validity of the calculated GFR & GFRAA in patients over 70 years has not been determined. Clinical correlation is essential. Serum or plasma urea nitroge n measurement (mass/volume)on 04-14-2022 Urea nitrogen [Mass/Vol] 59 mg/dL 7-18 [facility] Work Phone: Squamous epithelial cells de tection in urine sediment by light microscopyon 04-14-2022 Epithelial cells.squamous LM Ql (Urine sed) 0-5 SEEN /hpf 0-5 [facility] Work Phone: Thin prep Papanicolaou smear with manual screeningon 04-14-2022 Thin prep Papanicolaou smear with manual screening 30 U/L 15-37 [facility] Work Phone: Thin prep Papanicolaou smear with manual screening 8 5-15 [facility] Work Phone: Urine blood detectionon 03-21 RBC Ql (U) Negative Negative [facility] Work Phone: RBC Ql (U) 0 SEEN /hpf 0-5 [facility] Work Phone: Urine clarityon 04-14-2022 Clarity (U) Clear Clear [facility] Work Phone: Urine color determinationon 04-14-2022 Color (U) Yellow Yellow [facility] Work Phone: Urine glucose detectionon Glucose Ql (U) Normal mg/dl Normal [facility] Work Phone: Urine leukocyte esterase det ection by dipstickon 04-14-2022 Leukocyte esterase Test strip Ql (U) 25 /ul Negative [facility] Work Phone: Urine pHon 04-14-2022 pH (U) 6.0 [pH] 5.0 - 8.0 [facility] Work Phone: Urine sediment bacteria coun t by microscopy (number/high power field)on 04-14-2022 Bacteria LM.HPF (Urine sed) [#/Area] 0 /[HPF] None Seen [facility] Work Phone: Urine specific gravity measu rementon 04-14-2022 Specific gravity (U) [Rel density] 1.010 1.002-1.03 0 [facility] Work Phone: Urobilinogen Auto test strip Ql (U)on 04-14-2022 Urobilinogen Ql (U) Normal mg/dl Normal [facility] Work Phone: Basophil percentageon 2021 Creatinine [Mass/Vol] 1.4 mg/dL 0.70-1.30 [facility] Work Phone: Laboratory - Chemistry and C hemistry - challengeon 04-12-2022 GFR/1.73 sq M.predicted among non-blacks MDRD (S/P/Bld) [Vol rate/Area] 50.0000 mL/min/{1.73_m2} >60 [facility] Work Phone: Adriana 04-06-2022 [facility] PEDRO HILLMAN ([id number]) 1945 M Date Time Provider Department 04/06/22 [facility] During your visit today, we [...] Signed Still unable to reach patient and customer contact sales associate is spouse with same number.Sigrid Mock 04/07/2022 5:49 PM Signed Unable to reach patient. Mailbox full/Mailbox not set up/ Number incorrect. Please try again later. Jenny Mock 04/08/2022 9:23 AM Signed left message on machine to give call back, different number from pharmacy. [phone]. Jenny Mock 04/08/2022 2:56 PM Signed Notified [...] Osteoarthrosis, unspecified whether generalized*04/14/2014 Encounter Status:Closed by EJNNY MOCK on 04/08/22 Normal [facility] Bacteria Ur Culton 2 Bacteria identified Cx Nom (U) [id number] Abnormal [facility] Comment on above: Order Comment: Speci men Type: URINE SPECIMEN Ordering Facility: [facility] Address: [address] [place] [id number] Result Comment: >=10 0,000 CFU/ml Streptococcus mitis-oralis group No further workup Performed By: #### 6 30-4 #### [facility] CLIA [id number] [address] [place] [id number] [place] [address] OF [facility] CNOVon 04-05-2022 CNOV Office Visit ([facility] ) -- PEDRO HILLMAN ([id number]) 1945 M Date Time Provider Department 04/05/22 1:15 PM [facility] During your visit today, we recorded the following information about you: Temperature Pulse Respiration Blood pressure 101.6 degrees 76/minute 16/minute 122/76 Weight 87.1 kg Steven Melgar APRN.ASSISTANT PROFESSOR OF BIOLOGY 04/05/2022 3:51 PM Signed Subjective HPI Pedro Melenedz Jani is a 77 year old male [...] up a (more content not included)... Normal [facility] 04-05-2022 [facility] Telephone ([facility]) -- PEDRO HILLMAN ([id number]) 1945 M Date Time Provider Department 04/05/22 [facility] During your visit today, we recorded the following information about you: Steven Melgar APRN.CNP 04/05/2022 2:59 PM Signed Radiology report faxed to patient's PCP Dr. Tonio Fajardo at [phone]. Confirmation of fax received. Patient was advised [...] Status:Closed by STEVEN MELGAR on 04/05/22 Normal [facility] No Panel InformationOrdered By: [facility] Provider on 04-05-2022 Radiology Result ACTIONABLE Abnormal [facility] Comment on above: This report contains [...] BILIRUBIN UA (POCT) Negative Negative [facility] CLARITY UA (POCT) Cloudy [facility] COLOR UA (POCT) Dark yellow [facility] GLUCOSE UA (POCT) Negative Negative mg/dL [facility] HEMOGLOBIN/BLOOD UA (POCT) Small Abnormal Negative [facility] KETONE UA (POCT) Negative Negative mg/dL [facility] LEUKOCYTES UA (POCT) Large Abnormal Negative [facility] NITRITE UA (POCT) Negative Negative [facility] PH UA (POCT) 6.0 4.5 - 8.0 [facility] Protein Ql (U) 100 mg/dL Abnormal Negative mg/dL [facility] SPECIFIC GRAVITY UA (POCT) 1.020 1.005 - 1.030 [facility] UROBILINOGEN UA (POCT) 0.2 E.U./dL Umm l E.U./dL [facility] XR CHEST 2V FRONTAL/LATon XR CHEST [...] imaging findings can be found on the [facility] WebCurfew Sharepoint site at: [email or web address]/Managi ng%20Incidental%20Findi ngs%20at%20Imaging/Forms/A llItems.aspx Financial Operations Analyst: JONATHAN Transcribe Date/Time: Apr 05 2022 2:11P Dictated by : SANDEEP ORTIZ MD This examination was interpreted and the report reviewed and electronically signed by: SANDEEP ORTIZ MD on Apr 05 2022 2:13PM EST [id number] ACTIONABLE Invalid Interpretation Code [facility] XR Chest PA and LateralOrder ed By: [facility] Provider on 04-05-2022 Interpretation and review of laboratory results Abnormal [facility] XR Chest PA and Lateralon [...] imaging findings can be found on the [facility] WebCurfew Sharepoint site at: [email or web address]/Managi ng%20Incidental%20Findi ngs%20at%20Imaging/Forms/A llItems.aspx Financial Operations Analyst: JONATHAN Transcribe Date/Time: Apr 05 2022 2:11P Dictated by : SANDEEP ORTIZ MD This examination was interpreted and the report reviewed and electronically signed by: SANDEEP ORTIZ MD on Apr 05 2022 2:13PM [facility] DIVISION OF RADIOLOGY * * [...] the thoracic spine. DIVISION OF RADIOLOGY Provider, [facility] Harry [facility] - 04/05/2022 * * *Final Report* [...] be communicated with the ordering provider via [place] staff message or phone message by Imaging Support Services within 2 business days of report finalization. Algorithms for management of incidental imaging findings can be found on the [facility] Intranet Sharepoint site at: [email or web address]/Managi ng%20Incidental%20Findi ngs%20at%20Imaging/Forms/A llItems.aspx Financial Operations Analyst: JONATHAN Transcribe Date/Time: Apr 05 2022 2:11P Dictated by : SANDEEP ORTIZ MD This examination was interpreted and the report reviewed and electronically signed by: SANDEEP ORTIZ MD on Apr 05 2022 2:13PM EST [facility] Radiology Study observation (narrative) [facility] Anaerobic culture Bacteria identified Anaer cx Nom (Unsp spec) No anaerobic bacteria isolated. [facility] Work Phone: Bacteria identified Anaer cx Nom (Unsp spec) Anaerobic Culture Anaerobic cocci [facility] Work Phone: Bacteria identified Cx Nom ( Wound) Wound Culture Staphylococcus pseudintermediu [facility] Work Phone: Wound Culture Staphylococcus saprophyticus [facility] Work Phone: Gram stain for investigation of transfusion reaction Microscopic observation Gram stain Nom (Unsp spec) [facility] Work Phone: Vital Signs Date Time Vital Sign Value Performing Clinician Facility 05-04-2025 22:43-0400 Diastolic blood pressure 62 mm[Hg] Dr. Tonio Fajardo DO Work Phone: [facility] 05-04-2025 22:43-0400 Heart rate 99 /min Dr. Tonio Fajardo DO Work Phone: [facility] 05-04-2025 22:43-0400 Systolic blood pressure 143 mm[Hg] Dr. Tonio Fajardo DO Work Phone: [facility] 05-04-2025 22:34-0400 Inhaled oxygen flow rate 3 L/min Dr. Tonio Fajardo DO Work Phone: [facility] 05-04-2025 22:34-0400 SaO2% (BldA) [Mass fraction] 98 % Dr. Tonio Fajardo DO Work Phone: [facility] 05-04-2025 19:52-0400 Respiratory rate 16 /min Dr. Tonio Fajardo DO Work Phone: [facility] 05-04-2025 17:44-0400 Body temperature 97.2 [degF] Dr. Tonio Fajardo DO Work Phone: [facility] 05-04-2025 16:45-0400 Body temperature 97.3 [degF] Dr. Tonio Fajardo DO Work Phone: [facility] 05-04-2025 16:45-0400 Diastolic blood pressure 52 mm[Hg] Dr. Tonio Fajardo DO Work Phone: [facility] 05-04-2025 16:45-0400 Heart rate 101 /min Dr. Tonio Fajardo DO Work Phone: [facility] 05-04-2025 16:45-0400 Inhaled oxygen flow rate 3 L/min Dr. Tonio Fajardo DO Work Phone: [facility] 05-04-2025 16:45-0400 Respiratory rate 16 /min Dr. Tonio Fajardo DO Work Phone: [facility] 05-04-2025 16:45-0400 SaO2% (BldA) [Mass fraction] 97 % Dr. Tonio Fajardo DO Work Phone: [facility] 05-04-2025 16:45-0400 Systolic blood pressure 142 mm[Hg] Dr. Tonio Fajardo DO Work Phone: [facility] 05-04-2025 14:51-0400 Body height 167.[address] Tonio Fajardo DO Work Phone: [facility] 05-04-2025 14:51-0400 Body mass index (BMI) [Ratio] 25.7 kg/m2 Dr. Tonio Fajardo DO Work Phone: [facility] 05-04-2025 14:51-0400 Body weight 72.[address] Tonio Fajardo DO Work Phone: [facility] 05-04-2025 13:41-0400 Body weight 72.[address] Tonio Fajardo DO Work Phone: [facility] 05-04-2025 13:25-0400 Body mass index (BMI) [Ratio] 25.7 kg/m2 Dr. Tonio Fajardo DO Work Phone: [facility] 04-28-2025 21:30-0400 Heart rate 100 /min Dr. Tonio Fajardo DO Work Phone: [facility] 04-28-2025 21:30-0400 Respiratory rate 20 /min Dr. Tonio Fajardo DO Work Phone: [facility] 04-28-2025 21:09-0400 Diastolic blood pressure 59 mm[Hg] Dr. Tonio Fajardo DO Work Phone: [facility] 04-28-2025 21:09-0400 Systolic blood pressure 136 mm[Hg] Dr. Tonio Fajardo DO Work Phone: [facility] 04-28-2025 15:29-0400 Inhaled oxygen flow rate 3 L/min Dr. Tonio Fajardo DO Work Phone: [facility] 04-28-2025 14:53-0400 Body mass index (BMI) [Ratio] 25.7 kg/m2 Dr. Tonio Fajardo DO Work Phone: [facility] 04-28-2025 14:53-0400 Body weight 72.[address] Tonio Fajardo DO Work Phone: [facility] 04-28-2025 10:58-0400 SaO2% (BldA) [Mass fraction] 100 % Dr. Tonio Fajardo DO Work Phone: [facility] 04-28-2025 08:44-0400 Body temperature 97.2 [degF] Dr. Tonio Fajardo DO Work Phone: [facility] 04-27-2025 21:42-0400 Diastolic blood pressure 57 mm[Hg] Dr. Tonio Fajardo DO Work Phone: [facility] 04-27-2025 21:42-0400 Heart rate 97 /min Dr. Tonio Fajardo DO Work Phone: [facility] 04-27-2025 21:42-0400 Systolic blood pressure 140 mm[Hg] Dr. Tonio Fajardo DO Work Phone: [facility] 04-27-2025 21:38-0400 Inhaled oxygen flow rate 3 L/min Dr. Tonio Fajardo DO Work Phone: [facility] 04-27-2025 21:38-0400 SaO2% (BldA) [Mass fraction] 98 % Dr. Tonio Fajardo DO Work Phone: [facility] 04-27-2025 08:00-0400 Body temperature 97.6 [degF] Dr. Tonio Fajardo DO Work Phone: [facility] 04-27-2025 08:00-0400 Respiratory rate 20 /min Dr. Tonio Fajardo DO Work Phone: [facility] 04-24-2025 10:25-0400 Body height [address] Tonio Fajardo DO Work Phone: [facility] 04-24-2025 10:25-0400 Body weight 71.[address] Tonio Fajardo DO Work Phone: [facility] 04-23-2025 19:14-0400 Body mass index (BMI) [Ratio] 25.2 kg/m2 Dr. Tonio Fajardo DO Work Phone: [facility] 04-23-2025 14:00-0400 Body temperature 97.9 [degF] Dr. Tonio Fajardo DO Work Phone: [facility] 04-23-2025 14:00-0400 Diastolic blood pressure 73 mm[Hg] Dr. Tonio Fajardo DO Work Phone: [facility] 04-23-2025 14:00-0400 Heart rate 97 /min Dr. Tonio Fajardo DO Work Phone: [facility] 04-23-2025 14:00-0400 Inhaled oxygen flow rate 2 L/min Dr. Tonio Fajardo DO Work Phone: [facility] 04-23-2025 14:00-0400 Respiratory rate 18 /min Dr. Tonio Fajardo DO Work Phone: [facility] 04-23-2025 14:00-0400 SaO2% (BldA) [Mass fraction] 96 % Dr. Tonio Fajardo DO Work Phone: [facility] 04-23-2025 14:00-0400 Systolic blood pressure 109 mm[Hg] Dr. Tonio Fajardo DO Work Phone: [facility] 04-20-2025 13:48-0400 Body height 167.[address] Tonio Fajardo DO Work Phone: [facility] 04-20-2025 13:48-0400 Body weight 65.[address] Tonio Fajardo DO Work Phone: [facility] 04-19-2025 21:50-0400 Inhaled oxygen concentration 2 % Dr. Tonio Fajardo DO Work Phone: [facility] 04-19-2025 12:12-0400 Body mass index (BMI) [Ratio] 23.1 kg/m2 Dr. Tonio Fajardo DO Work Phone: [facility] 04-19-2025 11:03-0400 Body temperature 97.9 [degF] Dr. Tonio Fajardo DO Work Phone: [facility] 04-19-2025 11:03-0400 Diastolic blood pressure 66 mm[Hg] Dr. Tonio Fajardo DO Work Phone: [facility] 04-19-2025 11:03-0400 Heart rate 102 /min Dr. Tonio Fajardo DO Work Phone: [facility] 04-19-2025 11:03-0400 Respiratory rate 16 /min Dr. Tonio Fajardo DO Work Phone: [facility] 04-19-2025 11:03-0400 SaO2% (BldA) [Mass fraction] 100 % Dr. Tonio Fajardo DO Work Phone: [facility] 04-19-2025 11:03-0400 Systolic blood pressure 126 mm[Hg] Dr. Tonio Fajardo DO Work Phone: [facility] 04-19-2025 09:54-0400 Diastolic blood pressure 68 mm[Hg] Dr. Tonio Fajardo DO Work Phone: [facility] 04-19-2025 09:54-0400 Heart rate 103 /min Dr. Tonio Fajardo DO Work Phone: [facility] 04-19-2025 09:54-0400 Systolic blood pressure 85 mm[Hg] Dr. Tonio Fajardo DO Work Phone: [facility] 04-19-2025 09:45-0400 Inhaled oxygen flow rate 3 L/min Dr. Tonio Fajardo DO Work Phone: [facility] 04-19-2025 09:45-0400 Respiratory rate 20 /min Dr. Tonio Fajardo DO Work Phone: [facility] 04-19-2025 09:45-0400 SaO2% (BldA) [Mass fraction] 100 % Dr. Tonio Fajardo DO Work Phone: [facility] 04-19-2025 08:22-0400 Body height 167.[address] Tonio Fajardo DO Work Phone: [facility] 04-19-2025 08:22-0400 Body mass index (BMI) [Ratio] 25.7 kg/m2 Dr. Tonio Fajardo DO Work Phone: [facility] 04-19-2025 08:22-0400 Body temperature 97.9 [degF] Dr. Tonio Fajardo DO Work Phone: [facility] 04-19-2025 08:22-0400 Body weight 72.[address] Tonio Fajardo DO Work Phone: [facility] 04-19-2025 08:08-0400 Heart rate 102 /min Dr. Tonio Fajardo DO Work Phone: [facility] 04-19-2025 07:54-0400 Body temperature 97.4 [degF] Dr. Tonio Fajardo DO Work Phone: [facility] 04-19-2025 07:54-0400 Diastolic blood pressure 67 mm[Hg] Dr. Tonio Fajardo DO Work Phone: [facility] 04-19-2025 07:54-0400 Inhaled oxygen flow rate 3 L/min Dr. Tonio Fajardo DO Work Phone: [facility] 04-19-2025 07:54-0400 Respiratory rate 18 /min Dr. Tonio Fajardo DO Work Phone: [facility] 04-19-2025 07:54-0400 SaO2% (BldA) [Mass fraction] 100 % Dr. Tonio Fajardo DO Work Phone: [facility] 04-19-2025 07:54-0400 Systolic blood pressure 118 mm[Hg] Dr. Tonio Fajardo DO Work Phone: [facility] 04-18-2025 11:58-0400 Body weight 67.[address] Tonio Fajardo DO Work Phone: [facility] 04-17-2025 18:17-0400 Body mass index (BMI) [Ratio] 23.8 kg/m2 Dr. Tonio Fajardo DO Work Phone: [facility] 04-13-2025 02:37-0400 Inhaled oxygen flow rate 15 L/min Dr. Tonio Fajardo DO Work Phone: [facility] 04-13-2025 02:37-0400 SaO2% (BldA) [Mass fraction] 100 % Dr. Tonio Fajardo DO Work Phone: [facility] 04-13-2025 00:56-0400 Body temperature 97.8 [degF] Dr. Tonio Fajardo DO Work Phone: [facility] 04-13-2025 00:56-0400 Diastolic blood pressure 71 mm[Hg] Dr. Tonio Fajardo DO Work Phone: [facility] 04-13-2025 00:56-0400 Heart rate 106 /min Dr. Tonio Fajardo DO Work Phone: [facility] 04-13-2025 00:56-0400 Respiratory rate 21 /min Dr. Tonio Fajardo DO Work Phone: [facility] 04-13-2025 00:56-0400 Systolic blood pressure 129 mm[Hg] Dr. Tonio Fajardo DO Work Phone: [facility] 04-12-2025 23:03-0400 Body temperature 97.8 [degF] Dr. Tonio Fajardo DO Work Phone: [facility] 04-12-2025 23:03-0400 Diastolic blood pressure 80 mm[Hg] Dr. Tonio Fajardo DO Work Phone: [facility] 04-12-2025 23:03-0400 Heart rate 109 /min Dr. Tonio Fajardo DO Work Phone: [facility] 04-12-2025 23:03-0400 Respiratory rate 21 /min Dr. Tonio Fajardo DO Work Phone: [facility] 04-12-2025 23:03-0400 SaO2% (BldA) [Mass fraction] 100 % Dr. Tonio Fajardo DO Work Phone: [facility] 04-12-2025 23:03-0400 Systolic blood pressure 142 mm[Hg] Dr. Tonio aFjardo DO Work Phone: [facility] 04-12-2025 22:00-0400 Inhaled oxygen flow rate 15 L/min Dr. Tonio Fajardo DO Work Phone: [facility] 04-12-2025 18:05-0400 Body height 167.[address] Tonio Fajardo DO Work Phone: [facility] 04-12-2025 18:05-0400 Body mass index (BMI) [Ratio] 25.4 kg/m2 Dr. Tonio Fajardo DO Work Phone: [facility] 04-12-2025 18:05-0400 Body weight 71.[address] Tonio Fajardo DO Work Phone: [facility] 04-12-2025 16:46-0400 Heart rate 115 /min Dr. Tonio Fajardo DO Work Phone: [facility] 04-12-2025 15:40-0400 Diastolic blood pressure 74 mm[Hg] Dr. Tonio Fajardo DO Work Phone: [facility] 04-12-2025 15:40-0400 Inhaled oxygen flow rate 3 L/min Dr. Tonio Fajardo DO Work Phone: [facility] 04-12-2025 15:40-0400 Respiratory rate 22 /min Dr. Tonio Fajardo DO Work Phone: [facility] 04-12-2025 15:40-0400 SaO2% (BldA) [Mass fraction] 96 % Dr. Tonio Fajardo DO Work Phone: [facility] 04-12-2025 15:40-0400 Systolic blood pressure 146 mm[Hg] Dr. Tonio Fajardo DO Work Phone: [facility] 04-12-2025 08:52-0400 Body temperature 96.7 [degF] Dr. Tonio Fajardo DO Work Phone: [facility] 04-11-2025 12:48-0400 Body weight 70.[address] Tonio Fajardo DO Work Phone: [facility] 04-10-2025 23:00-0400 Body mass index (BMI) [Ratio] 25.2 kg/m2 Dr. Tonio Fajardo DO Work Phone: [facility] 04-10-2025 16:21-0400 Body temperature 98.6 [degF] Dr. Tonio Fajardo DO Work Phone: [facility] 04-10-2025 16:21-0400 Diastolic blood pressure 82 mm[Hg] Dr. Tonio Fajardo DO Work Phone: [facility] 04-10-2025 16:21-0400 Heart rate 106 /min Dr. Tonio Fajardo DO Work Phone: [facility] 04-10-2025 16:21-0400 Inhaled oxygen flow rate 3 L/min Dr. Tonio Fajardo DO Work Phone: [facility] 04-10-2025 16:21-0400 Respiratory rate 18 /min Dr. Tonio Fajardo DO Work Phone: [facility] 04-10-2025 16:21-0400 SaO2% (BldA) [Mass fraction] 100 % Dr. Tonio Fajardo DO Work Phone: [facility] 04-10-2025 16:21-0400 Systolic blood pressure 142 mm[Hg] Dr. Tonio Fajardo DO Work Phone: [facility] 04-10-2025 14:30-0400 Body height 167.[address] Tonio Fajardo DO Work Phone: [facility] 04-10-2025 14:30-0400 Body weight 75.[address] Tonio Fajardo DO Work Phone: [facility] 04-10-2025 05:10-0400 Body mass index (BMI) [Ratio] 26.7 kg/m2 Dr. Tonio Fajardo DO Work Phone: [facility] 04-07-2025 00:00-0400 Inhaled oxygen concentration 35 % Dr. Tonio Fajardo DO Work Phone: [facility] 04-05-2025 20:00-0400 Diastolic blood pressure 65 mm[Hg] Dr. Tonio Fajardo DO Work Phone: [facility] 04-05-2025 20:00-0400 Heart rate 103 /min Dr. Toino Fajardo DO Work Phone: [facility] 04-05-2025 20:00-0400 Inhaled oxygen flow rate 4 L/min Dr. Tonio Fajardo DO Work Phone: [facility] 04-05-2025 20:00-0400 Respiratory rate 25 /min Dr. Tonio Fajardo DO Work Phone: [facility] 04-05-2025 20:00-0400 SaO2% (BldA) [Mass fraction] 92 % Dr. Tonio Fajardo DO Work Phone: [facility] 04-05-2025 20:00-0400 Systolic blood pressure 119 mm[Hg] Dr. Tonio Fajardo DO Work Phone: [facility] 04-05-2025 19:12-0400 Body temperature 98 [degF] Dr. Tonio Fajardo DO Work Phone: [facility] 04-05-2025 16:41-0400 Body height 167.[address] Tonio Fajardo DO Work Phone: [facility] 04-05-2025 16:41-0400 Body mass index (BMI) [Ratio] 28 kg/m2 Dr. Tonio Fajardo DO Work Phone: [facility] 04-05-2025 16:41-0400 Body weight 78.[address] Tonio Fajardo DO Work Phone: [facility] 03-17-2025 13:07-0400 Body height 167.[address] Tonio Fajardo DO Work Phone: [facility] 03-17-2025 13:07-0400 Body mass index (BMI) [Ratio] 26.6 kg/m2 Dr. Tonio Fajardo DO Work Phone: [facility] 03-17-2025 13:07-0400 Body weight 74.[address] Tonio Fajardo DO Work Phone: [facility] 03-17-2025 13:07-0400 Diastolic blood pressure 60 mm[Hg] Dr. Tonio Fajardo DO Work Phone: [facility] 03-17-2025 13:07-0400 Heart rate 101 /min Dr. Tonio Fajardo DO Work Phone: [facility] 03-17-2025 13:07-0400 Inhaled oxygen flow rate 3 L/min Dr. Tonio Fajardo DO Work Phone: [facility] 03-17-2025 13:07-0400 Respiratory rate 20 /min Dr. Tonio Fajardo DO Work Phone: [facility] 03-17-2025 13:07-0400 SaO2% (BldA) [Mass fraction] 96 % Dr. Tonio Fajardo DO Work Phone: [facility] 03-17-2025 13:07-0400 Systolic blood pressure 124 mm[Hg] Dr. Tonio Fajardo DO Work Phone: [facility] 03-15-2025 18:32-0400 Body temperature 98.1 [degF] Dr. Tonio Fajardo DO Work Phone: [facility] 03-15-2025 18:32-0400 Diastolic blood pressure 71 mm[Hg] Dr. Tonio Fajardo DO Work Phone: [facility] 03-15-2025 18:32-0400 Heart rate 101 /min Dr. Tonio Fajardo DO Work Phone: [facility] 03-15-2025 18:32-0400 Respiratory rate 18 /min Dr. Tonio Fajardo DO Work Phone: [facility] 03-15-2025 18:32-0400 SaO2% (BldA) [Mass fraction] 93 % Dr. Tonio Fajardo DO Work Phone: [facility] 03-15-2025 18:32-0400 Systolic blood pressure 168 mm[Hg] Dr. Tonio Fajardo DO Work Phone: [facility] 03-15-2025 16:58-0400 Body height 167.[address] Tonio Fajardo DO Work Phone: [facility] 03-15-2025 16:58-0400 Body mass index (BMI) [Ratio] 27.8 kg/m2 Dr. Tonio Fajardo DO Work Phone: [facility] 03-15-2025 16:58-0400 Body weight 78.[address] Tonio Fajardo DO Work Phone: [facility] 03-15-2025 16:58-0400 Inhaled oxygen flow rate 3 L/min Dr. Tonio Fajardo DO Work Phone: [facility] 03-09-2025 16:22-0400 Body temperature 98.5 [degF] Dr. Tonio Fajardo DO Work Phone: [facility] 03-09-2025 16:22-0400 Heart rate 78 /min Dr. Tonio Fajardo DO Work Phone: [facility] 03-09-2025 16:22-0400 Inhaled oxygen flow rate 3 L/min Dr. Tonio Fajardo DO Work Phone: [facility] 03-09-2025 16:22-0400 Respiratory rate 20 /min Dr. Tonio Fajardo DO Work Phone: [facility] 03-09-2025 16:22-0400 SaO2% (BldA) [Mass fraction] 92 % Dr. Tonio Fajardo DO Work Phone: [facility] 03-09-2025 11:48-0400 Inhaled oxygen flow rate 2 L/min Dr. Tonio Fajardo DO Work Phone: [facility] 03-09-2025 11:48-0400 SaO2% (BldA) [Mass fraction] 79 % Dr. Tonio Fajardo DO Work Phone: [facility] 03-09-2025 11:11-0400 Body height 167.[address] Tonio Fajardo DO Work Phone: [facility] 03-09-2025 11:11-0400 Body weight 78.[address] Tonio Fajardo DO Work Phone: [facility] 03-09-2025 10:00-0400 Diastolic blood pressure 51 mm[Hg] Dr. Tonio Fajardo DO Work Phone: [facility] 03-09-2025 10:00-0400 Heart rate 97 /min Dr. Tonio Fajardo DO Work Phone: [facility] 03-09-2025 10:00-0400 Systolic blood pressure 129 mm[Hg] Dr. Tonio Fajardo DO Work Phone: [facility] 03-09-2025 05:00-0400 Body mass index (BMI) [Ratio] 28 kg/m2 Dr. Tonio Fajardo DO Work Phone: [facility] 03-04-2025 20:49-0400 Body temperature 98.6 [degF] Dr. Tonio Fajardo DO Work Phone: [facility] 03-04-2025 20:49-0400 Diastolic blood pressure 70 mm[Hg] Dr. Tonio Fajardo DO Work Phone: [facility] 03-04-2025 20:49-0400 Heart rate 114 /min Dr. Tonio Fajardo DO Work Phone: [facility] 03-04-2025 20:49-0400 Respiratory rate 20 /min Dr. Tonio Fajardo DO Work Phone: [facility] 03-04-2025 20:49-0400 SaO2% (BldA) [Mass fraction] 100 % Dr. Tonio Fajardo DO Work Phone: [facility] 03-04-2025 20:49-0400 Systolic blood pressure 153 mm[Hg] Dr. Tonio Fajardo DO Work Phone: [facility] 03-04-2025 20:00-0400 Inhaled oxygen flow rate 4 L/min Dr. Tonio Fajardo DO Work Phone: [facility] 03-04-2025 15:01-0400 Body height 167.[address] Tonio Fajardo DO Work Phone: [facility] 03-04-2025 15:01-0400 Body mass index (BMI) [Ratio] 25.9 kg/m2 Dr. Tonio Fajardo DO Work Phone: [facility] 03-04-2025 15:01-0400 Body weight 73.[address] Tonio Fajardo DO Work Phone: [facility] 11-06-2024 14:45-0400 Body height 167.[address] Tonio Fajardo DO Work Phone: [facility] 11-06-2024 14:45-0400 Body mass index (BMI) [Ratio] 28.5 kg/m2 Dr. Tonio Fajardo DO Work Phone: [facility] 11-06-2024 14:45-0400 Body temperature 98.5 [degF] Dr. Tonio Fajardo DO Work Phone: [facility] 11-06-2024 14:45-0400 Body weight 80.[address] Tonio Fajardo DO Work Phone: [facility] 11-06-2024 14:45-0400 Diastolic blood pressure 55 mm[Hg] Dr. Tonio Fajardo DO Work Phone: [facility] 11-06-2024 14:45-0400 Heart rate 55 /min Dr. Tonio Fajardo DO Work Phone: [facility] 11-06-2024 14:45-0400 Respiratory rate 18 /min Dr. Tonio Fjaardo DO Work Phone: [facility] 11-06-2024 14:45-0400 SaO2% (BldA) [Mass fraction] 95 % Dr. Tonio Fajardo DO Work Phone: [facility] 11-06-2024 14:45-0400 Systolic blood pressure 116 mm[Hg] Dr. Tonio Fajardo DO Work Phone: [facility] 10-23-2024 09:06-0500 Body mass index (BMI) [Ratio] 28.5 kg/m2 Dr. Tonio Fajardo DO Work Phone: [facility] 10-23-2024 09:06-0500 Body temperature 97.4 [degF] Dr. Tonio Fajardo DO Work Phone: [facility] 10-23-2024 09:06-0500 Body weight 80.[address] Tonio Fajardo DO Work Phone: [facility] 10-23-2024 09:06-0500 Diastolic blood pressure 56 mm[Hg] Dr. Tonio Fajardo DO Work Phone: [facility] 10-23-2024 09:06-0500 Heart rate 52 /min Dr. Tonio Fajardo DO Work Phone: [facility] 10-23-2024 09:06-0500 Inhaled oxygen flow rate 3 L/min Dr. Tonio Fajardo DO Work Phone: [facility] 10-23-2024 09:06-0500 Respiratory rate 26 /min Dr. Tonio Fajardo DO Work Phone: [facility] 10-23-2024 09:06-0500 SaO2% (BldA) [Mass fraction] 97 % Dr. Tonio Fajardo DO Work Phone: [facility] 10-23-2024 09:06-0500 Systolic blood pressure 128 mm[Hg] Dr. Tonio Fajardo DO Work Phone: [facility] 10-16-2024 13:24-0500 Body height 167.[address] Tonio Fajardo DO Work Phone: [facility] 10-16-2024 13:24-0500 Body weight 78.[address] Tonio Fajardo DO Work Phone: [facility] 10-16-2024 13:24-0500 Heart rate 98 /min Dr. Tonio Fajardo DO Work Phone: [facility] 10-16-2024 13:24-0500 Inhaled oxygen flow rate 2 L/min Dr. Tonio Fajardo DO Work Phone: [facility] 10-16-2024 13:24-0500 SaO2% (BldA) [Mass fraction] 96 % Dr. Tonio Fajardo DO Work Phone: [facility] 09-25-2024 12:59-0500 Body mass index (BMI) [Ratio] 27.7 kg/m2 Dr. Tonio Fajardo DO Work Phone: [facility] 09-25-2024 12:59-0500 Body weight 80.[address] Tonio Fajardo DO Work Phone: [facility] 09-25-2024 12:59-0500 Diastolic blood pressure 75 mm[Hg] Dr. Tonio Fajardo DO Work Phone: [facility] 09-25-2024 12:59-0500 Heart rate 99 /min Dr. Tonio Fajardo DO Work Phone: [facility] 09-25-2024 12:59-0500 Respiratory rate 18 /min Dr. Tonio Fajardo DO Work Phone: [facility] 09-25-2024 12:59-0500 SaO2% (BldA) [Mass fraction] 90 % Dr. Tonio Fajardo DO Work Phone: [facility] 09-25-2024 12:59-0500 Systolic blood pressure 120 mm[Hg] Dr. Tonio Fajardo DO Work Phone: [facility] 11-12-2023 13:22-0400 Body height 170.[address] Tonio Fajardo Work Phone: [facility] 11-12-2023 13:22-0400 Body mass index (BMI) [Ratio] 28 kg/m2 Dr. Tonio Fajardo Work Phone: [facility] 11-12-2023 13:22-0400 Body temperature 97.9 [degF] Dr. Tonio Fajardo Work Phone: [facility] 11-12-2023 13:22-0400 Body weight 81.[address] Tonio Fajardo Work Phone: [facility] 11-12-2023 13:22-0400 Diastolic blood pressure 62 mm[Hg] Dr. Tonio Fajardo Work Phone: [facility] 11-12-2023 13:22-0400 Heart rate 103 /min Dr. Tonio Fajardo Work Phone: [facility] 11-12-2023 13:22-0400 Respiratory rate 18 /min Dr. Tonio Fajardo Work Phone: [facility] 11-12-2023 13:22-0400 SaO2% (BldA) [Mass fraction] 98 % Dr. Tonio Fajardo Work Phone: [facility] 11-12-2023 13:22-0400 Systolic blood pressure 97 mm[Hg] Dr. Tonio Fajardo Work Phone: [facility] 10-31-2023 12:05-0400 Body mass index (BMI) [Ratio] 27.3 kg/m2 Dr. Tonio Fajardo Work Phone: [facility] 10-31-2023 12:05-0400 Body temperature 98.2 [degF] Dr. Tonio Fajardo Work Phone: [facility] 10-31-2023 12:05-0400 Body weight 79.[address] Tonio Fajardo Work Phone: [facility] 10-31-2023 12:05-0400 Diastolic blood pressure 71 mm[Hg] Dr. Tonio Fajardo Work Phone: [facility] 10-31-2023 12:05-0400 Heart rate 78 /min Dr. Tonio Fajardo Work Phone: [facility] 10-31-2023 12:05-0400 Respiratory rate 18 /min Dr. Tonio Fajardo Work Phone: [facility] 10-31-2023 12:05-0400 SaO2% (BldA) [Mass fraction] 94 % Dr. Tonio Fajardo Work Phone: [facility] 10-31-2023 12:05-0400 Systolic blood pressure 119 mm[Hg] Dr. Tonio Fajardo Work Phone: [facility] 10-18-2023 14:51-0500 Body mass index (BMI) [Ratio] 28 kg/m2 Dr. Tonio Fajardo Work Phone: [facility] 10-18-2023 14:51-0500 Body temperature 98.9 [degF] Dr. Tonio Fajardo Work Phone: [facility] 10-18-2023 14:51-0500 Body weight 81.[address] Tonio Fajardo Work Phone: [facility] 10-18-2023 14:51-0500 Diastolic blood pressure 60 mm[Hg] Dr. Tonio Fajardo Work Phone: [facility] 10-18-2023 14:51-0500 Heart rate 98 /min Dr. Tonio Fajardo Work Phone: [facility] 10-18-2023 14:51-0500 Respiratory rate 18 /min Dr. Tonio Fajardo Work Phone: [facility] 10-18-2023 14:51-0500 SaO2% (BldA) [Mass fraction] 96 % Dr. Tonio Fajardo Work Phone: [facility] 10-18-2023 14:51-0500 Systolic blood pressure 114 mm[Hg] Dr. Tonio Fajardo Work Phone: [facility] 08-29-2023 12:52-0500 Body height 170.[address] Tonio Fajardo Work Phone: [facility] 08-29-2023 12:52-0500 Body mass index (BMI) [Ratio] 27.8 kg/m2 Dr. Tonio Fajardo Work Phone: [facility] 08-29-2023 12:52-0500 Body weight 80.[address] Tonio Fajardo Work Phone: [facility] 08-29-2023 12:52-0500 Diastolic blood pressure 71 mm[Hg] Dr. Tonio Fajardo Work Phone: [facility] 08-29-2023 12:52-0500 Heart rate 95 /min Dr. Tonio Fajardo Work Phone: [facility] 08-29-2023 12:52-0500 Respiratory rate 18 /min Dr. Tonio Fajardo Work Phone: [facility] 08-29-2023 12:52-0500 SaO2% (BldA) [Mass fraction] 97 % Dr. Tonio Fajardo Work Phone: [facility] 08-29-2023 12:52-0500 Systolic blood pressure 111 mm[Hg] Dr. Tonio Fajardo Work Phone: [facility] 07-25-2023 07:50-0500 Body height 170.[address] Tonio Fajardo Work Phone: [facility] 07-25-2023 07:50-0500 Body mass index (BMI) [Ratio] 29.4 kg/m2 Dr. Tonio Fajardo Work Phone: [facility] 07-25-2023 07:50-0500 Body temperature 96.2 [degF] Dr. Tonio Fajardo Work Phone: [facility] 07-25-2023 07:50-0500 Body weight 85.[address] Tonio Fajardo Work Phone: [facility] 07-25-2023 07:50-0500 Diastolic blood pressure 75 mm[Hg] Dr. Tonio Fajardo Work Phone: [facility] 07-25-2023 07:50-0500 Heart rate 53 /min Dr. Tonio Fajardo Work Phone: [facility] 07-25-2023 07:50-0500 Respiratory rate 20 /min Dr. Tonio Fajardo Work Phone: [facility] 07-25-2023 07:50-0500 SaO2% (BldA) [Mass fraction] 82 % Dr. Tonio Fajardo Work Phone: [facility] 07-25-2023 07:50-0500 Systolic blood pressure 119 mm[Hg] Dr. Tonio Fajardo Work Phone: [facility] 06-08-2023 14:33-0400 Body temperature 97.1 [degF] Dr. Tonio Fajardo Work Phone: [facility] 06-08-2023 14:33-0400 Diastolic blood pressure 67 mm[Hg] Dr. Tonio Fajardo Work Phone: [facility] 06-08-2023 14:33-0400 Heart rate 103 /min Dr. Tonio Fajardo Work Phone: [facility] 06-08-2023 14:33-0400 Respiratory rate 14 /min Dr. Tonio Fajardo Work Phone: [facility] 06-08-2023 14:33-0400 SaO2% (BldA) [Mass fraction] 93 % Dr. Tonio Fajardo Work Phone: [facility] 06-08-2023 14:33-0400 Systolic blood pressure 133 mm[Hg] Dr. Tonio Fajardo Work Phone: [facility] 06-08-2023 12:20-0400 Body height 170.[address] Tonio Fajardo Work Phone: [facility] 06-08-2023 12:20-0400 Body mass index (BMI) [Ratio] 29.3 kg/m2 Dr. Tonio Fajardo Work Phone: [facility] 06-08-2023 12:20-0400 Body weight [address] Tonio Fajardo Work Phone: [facility] 05-02-2023 13:50-0400 Diastolic blood pressure 63 mm[Hg] Dr. Tonio Fajardo Work Phone: [facility] 05-02-2023 13:50-0400 Heart rate 97 /min Dr. Tonio Fajardo Work Phone: [facility] 05-02-2023 13:50-0400 Respiratory rate 18 /min Dr. Tonio Fajardo Work Phone: [facility] 05-02-2023 13:50-0400 Systolic blood pressure 113 mm[Hg] Dr. Tonio Fajardo Work Phone: [facility] 04-25-2023 14:04-0400 Body temperature 97.9 [degF] Dr. Tonio Fajardo Work Phone: [facility] 04-18-2023 13:24-0400 Body temperature 97.5 [degF] Dr. Tonio Fajardo Work Phone: [facility] 04-18-2023 13:24-0400 Diastolic blood pressure 77 mm[Hg] Dr. oTnio Fajardo Work Phone: [facility] 04-18-2023 13:24-0400 Heart rate 109 /min Dr. Tonio Fajardo Work Phone: [facility] 04-18-2023 13:24-0400 Respiratory rate 16 /min Dr. Tonio Fajardo Work Phone: [facility] 04-18-2023 13:24-0400 Systolic blood pressure 141 mm[Hg] Dr. Tonio Fajardo Work Phone: [facility] 04-17-2023 11:08-0400 Body height 167.[address] Tonio Fajrado Work Phone: [facility] 04-17-2023 11:08-0400 Body mass index (BMI) [Ratio] 30.2 kg/m2 Dr. Tonio Fajardo Work Phone: [facility] 04-17-2023 11:08-0400 Body temperature 98.6 [degF] Dr. Tonio Fajardo Work Phone: [facility] 04-17-2023 11:08-0400 Body weight 84.[address] Tonio Fajardo Work Phone: [facility] 04-17-2023 11:08-0400 Diastolic blood pressure 87 mm[Hg] Dr. Tonio Fajardo Work Phone: [facility] 04-17-2023 11:08-0400 Heart rate 87 /min Dr. Tonio Fajardo Work Phone: [facility] 04-17-2023 11:08-0400 Respiratory rate 18 /min Dr. Tonio Fajardo Work Phone: [facility] 04-17-2023 11:08-0400 SaO2% (BldA) [Mass fraction] 95 % Dr. Tonio Fajardo Work Phone: [facility] 04-17-2023 11:08-0400 Systolic blood pressure 130 mm[Hg] Dr. Tonio Fajardo Work Phone: [facility] 04-02-2023 11:24-0400 Body temperature 98.6 [degF] Dr. Tonio Fajardo Work Phone: [facility] 04-02-2023 11:24-0400 Diastolic blood pressure 55 mm[Hg] Dr. Tonio Fajardo Work Phone: [facility] 04-02-2023 11:24-0400 Heart rate 101 /min Dr. Tonio Fajardo Work Phone: [facility] 04-02-2023 11:24-0400 Respiratory rate 20 /min Dr. Tonio Fajardo Work Phone: [facility] 04-02-2023 11:24-0400 Systolic blood pressure 114 mm[Hg] Dr. Tonio Fajardo Work Phone: [facility] 03-19-2023 10:28-0400 Body temperature 98.2 [degF] Dr. Tonio Fajardo Work Phone: [facility] 03-19-2023 10:28-0400 Diastolic blood pressure 59 mm[Hg] Dr. Tonio Fajardo Work Phone: [facility] 03-19-2023 10:28-0400 Heart rate 106 /min Dr. Tonio Fajardo Work Phone: [facility] 03-19-2023 10:28-0400 Respiratory rate 20 /min Dr. Tonio Fajardo Work Phone: [facility] 03-19-2023 10:28-0400 Systolic blood pressure 120 mm[Hg] Dr. Tonio Fajardo Work Phone: [facility] 02-05-2023 13:10-0400 Body temperature 97.6 [degF] Dr. Tonio Fajardo Work Phone: [facility] 02-05-2023 13:10-0400 Diastolic blood pressure 76 mm[Hg] Dr. Tonio Fajardo Work Phone: [facility] 02-05-2023 13:10-0400 Heart rate 109 /min Dr. Tonio Fajardo Work Phone: [facility] 02-05-2023 13:10-0400 Respiratory rate 18 /min Dr. Tonio Fajardo Work Phone: [facility] 02-05-2023 13:10-0400 Systolic blood pressure 160 mm[Hg] Dr. Tonio Fajardo Work Phone: [facility] 01-08-2023 13:37-0400 Body temperature 96.7 [degF] Dr. Tonio Fajardo Work Phone: [facility] 01-08-2023 13:37-0400 Diastolic blood pressure 46 mm[Hg] Dr. Tonio Fajardo Work Phone: [facility] 01-08-2023 13:37-0400 Heart rate 111 /min Dr. Tonio Fajardo Work Phone: [facility] 01-08-2023 13:37-0400 Systolic blood pressure 121 mm[Hg] Dr. Tonio Fajardo Work Phone: [facility] 12-31-2022 00:58-0400 Body temperature 98.7 [degF] Dr. Tonio Fajardo Work Phone: [facility] 12-31-2022 00:58-0400 Diastolic blood pressure 59 mm[Hg] Dr. Tonio Fajardo Work Phone: [facility] 12-31-2022 00:58-0400 Heart rate 111 /min Dr. Tonio Fajardo Work Phone: [facility] 12-31-2022 00:58-0400 Respiratory rate 26 /min Dr. Tonio Fajardo Work Phone: [facility] 12-31-2022 00:58-0400 SaO2% (BldA) [Mass fraction] 93 % Dr. Tonio Fajardo Work Phone: [facility] 12-31-2022 00:58-0400 Systolic blood pressure 131 mm[Hg] Dr. Tonio Fajardo Work Phone: [facility] 12-30-2022 22:36-0400 Body height 167.[address] Tonio Fajardo Work Phone: [facility] 12-30-2022 22:36-0400 Body mass index (BMI) [Ratio] 30.5 kg/m2 Dr. Tonio Fajardo Work Phone: [facility] 12-30-2022 22:36-0400 Body weight 85.[address] Tonio Fajardo Work Phone: [facility] 12-25-2022 14:53-0400 Body temperature 97.7 [degF] Dr. Tonio Fajardo Work Phone: [facility] 12-25-2022 14:53-0400 Diastolic blood pressure 51 mm[Hg] Dr. Tonio Fajardo Work Phone: [facility] 12-25-2022 14:53-0400 Heart rate 110 /min Dr. Tonio Fajardo Work Phone: [facility] 12-25-2022 14:53-0400 Respiratory rate 18 /min Dr. Tonio Fajardo Work Phone: [facility] 12-25-2022 14:53-0400 Systolic blood pressure 101 mm[Hg] Dr. Tonio Fajardo Work Phone: [facility] 12-12-2022 10:49-0400 Body height 167.[address] Tonio Fajardo Work Phone: [facility] 12-12-2022 10:49-0400 Body mass index (BMI) [Ratio] 29.7 kg/m2 Dr. Tonio Fajardo Work Phone: [facility] 12-12-2022 10:49-0400 Body temperature 97.4 [degF] Dr. Tonio Fajardo Work Phone: [facility] 12-12-2022 10:49-0400 Body weight 83.[address] Tonio Fajardo Work Phone: [facility] 12-12-2022 10:49-0400 Diastolic blood pressure 71 mm[Hg] Dr. Tonio Fajardo Work Phone: [facility] 12-12-2022 10:49-0400 Heart rate 114 /min Dr. Tonio Fajardo Work Phone: [facility] 12-12-2022 10:49-0400 Respiratory rate 18 /min Dr. Tonio Fajardo Work Phone: [facility] 12-12-2022 10:49-0400 SaO2% (BldA) [Mass fraction] 96 % Dr. Tonio Fajardo Work Phone: [facility] 12-12-2022 10:49-0400 Systolic blood pressure 135 mm[Hg] Dr. Tonio Fajardo Work Phone: [facility] 12-11-2022 13:12-0400 Body temperature 96.2 [degF] Dr. Tonio Fajardo Work Phone: [facility] 12-11-2022 13:12-0400 Diastolic blood pressure 87 mm[Hg] Dr. Tonio Fajardo Work Phone: [facility] 12-11-2022 13:12-0400 Heart rate 107 /min Dr. Tonio Fajardo Work Phone: [facility] 12-11-2022 13:12-0400 Respiratory rate 20 /min Dr. Tonio Fajardo Work Phone: [facility] 12-11-2022 13:12-0400 Systolic blood pressure 110 mm[Hg] Dr. Tonio Fajardo Work Phone: [facility] 11-16-2022 13:13-0400 Diastolic blood pressure 49 mm[Hg] Dr. Tonio Fajardo Work Phone: [facility] 11-16-2022 13:13-0400 Heart rate 82 /min Dr. Tonio Fajardo Work Phone: [facility] 11-16-2022 13:13-0400 Respiratory rate 16 /min Dr. Tonio Fajardo Work Phone: [facility] 11-16-2022 13:13-0400 Systolic blood pressure 125 mm[Hg] Dr. Tonio Fajardo Work Phone: [facility] 11-08-2022 09:52-0400 Body temperature 97.3 [degF] Dr. Tonio Fajardo Work Phone: [facility] 10-16-2022 14:07-0500 Body height 167.[address] Tonio Fajardo Work Phone: [facility] 10-16-2022 14:05-0500 Body mass index (BMI) [Ratio] 29.8 kg/m2 Dr. Tonio Fajardo Work Phone: [facility] 10-16-2022 14:05-0500 Body temperature 97.6 [degF] Dr. Tonio Fajardo Work Phone: [facility] 10-16-2022 14:05-0500 Body weight 83.[address] Tonio Fajardo Work Phone: [facility] 10-16-2022 14:05-0500 Diastolic blood pressure 89 mm[Hg] Dr. Tonio Fajardo Work Phone: [facility] 10-16-2022 14:05-0500 Heart rate 78 /min Dr. Tonio Fajardo Work Phone: [facility] 10-16-2022 14:05-0500 Respiratory rate 18 /min Dr. Tonio Fajardo Work Phone: [facility] 10-16-2022 14:05-0500 SaO2% (BldA) [Mass fraction] 94 % Dr. Tonio Fajardo Work Phone: [facility] 10-16-2022 14:05-0500 Systolic blood pressure 145 mm[Hg] Dr. Tonio Fajardo Work Phone: [facility] 10-16-2022 13:24-0500 Body mass index (BMI) [Ratio] 29.8 kg/m2 Dr. Tonio Fajardo Work Phone: [facility] 10-16-2022 13:24-0500 Body temperature 98.6 [degF] Dr. Tonio Fajardo Work Phone: [facility] 10-16-2022 13:24-0500 Body weight 83.[address] Tonio Fajardo Work Phone: [facility] 10-16-2022 13:24-0500 Diastolic blood pressure 74 mm[Hg] Dr. Tonio Fajardo Work Phone: [facility] 10-16-2022 13:24-0500 Heart rate 75 /min Dr. Tonio Fajardo Work Phone: [facility] 10-16-2022 13:24-0500 Respiratory rate 18 /min Dr. Tonio Fajardo Work Phone: [facility] 10-16-2022 13:24-0500 SaO2% (BldA) [Mass fraction] 94 % Dr. Tonio Fajardo Work Phone: [facility] 10-16-2022 13:24-0500 Systolic blood pressure 146 mm[Hg] Dr. Tonio Fajardo Work Phone: [facility] 10-09-2022 12:59-0500 Body temperature 97.5 [degF] Dr. Tonio Fajardo Work Phone: [facility] 10-09-2022 12:59-0500 Diastolic blood pressure 63 mm[Hg] Dr. Tonio Fajardo Work Phone: [facility] 10-09-2022 12:59-0500 Heart rate 89 /min Dr. Tonio Fajardo Work Phone: [facility] 10-09-2022 12:59-0500 Respiratory rate 22 /min Dr. Tonio Fajardo Work Phone: [facility] 10-09-2022 12:59-0500 Systolic blood pressure 148 mm[Hg] Dr. Tonio Fajardo Work Phone: [facility] 09-18-2022 09:49-0500 Body temperature 97.3 [degF] Dr. Tonio Fajardo Work Phone: [facility] 09-18-2022 09:49-0500 Diastolic blood pressure 44 mm[Hg] Dr. Tonio Fajardo Work Phone: [facility] 09-18-2022 09:49-0500 Heart rate 66 /min Dr. Tonio Fajardo Work Phone: [facility] 09-18-2022 09:49-0500 Respiratory rate 18 /min Dr. Tonio Fajardo Work Phone: [facility] 09-18-2022 09:49-0500 Systolic blood pressure 138 mm[Hg] Dr. Tonio Fajardo Work Phone: [facility] 08-15-2022 13:56-0500 Body temperature 97.1 [degF] Dr. Tonio Fajardo Work Phone: [facility] 08-15-2022 13:56-0500 Diastolic blood pressure 43 mm[Hg] Dr. Tonio Fajardo Work Phone: [facility] 08-15-2022 13:56-0500 Heart rate 73 /min Dr. Tonio Fajardo Work Phone: [facility] 08-15-2022 13:56-0500 Respiratory rate 16 /min Dr. Tonio Fajardo Work Phone: [facility] 08-15-2022 13:56-0500 Systolic blood pressure 139 mm[Hg] Dr. Tonio Fajardo Work Phone: [facility] 08-08-2022 14:00-0500 Body height 167.[address] Tonio Fajardo Work Phone: [facility] 08-08-2022 13:57-0500 Body mass index (BMI) [Ratio] 29.5 kg/m2 Dr. Tonio Fajardo Work Phone: [facility] 08-08-2022 13:57-0500 Body temperature 97.5 [degF] Dr. Tnoio Fajardo Work Phone: [facility] 08-08-2022 13:57-0500 Body weight 83.[address] Tonio Fajardo Work Phone: [facility] 08-08-2022 13:57-0500 Diastolic blood pressure 54 mm[Hg] Dr. Tonio Fajardo Work Phone: [facility] 08-08-2022 13:57-0500 Heart rate 67 /min Dr. Tonio Fajardo Work Phone: [facility] 08-08-2022 13:57-0500 Respiratory rate 16 /min Dr. Tonio Fajrado Work Phone: [facility] 08-08-2022 13:57-0500 SaO2% (BldA) [Mass fraction] 94 % Dr. Tonio Fajardo Work Phone: [facility] 08-08-2022 13:57-0500 Systolic blood pressure 109 mm[Hg] Dr. Tonio Fajardo Work Phone: [facility] 07-19-2022 14:30-0500 Body height 167.[address] Tonio Fajardo Work Phone: [facility] Work Phone: 07-19-2022 14:30-0500 Body mass index (BMI) [Ratio] 29 kg/m2 Dr. Tonio Fajardo Work Phone: [facility] 07-19-2022 14:30-0500 Body weight 81.[address] Tonio Fajardo Work Phone: [facility] 07-19-2022 14:30-0500 Diastolic blood pressure 62 mm[Hg] Dr. Tonio Fajardo Work Phone: [facility] 07-19-2022 14:30-0500 Heart rate 66 /min Dr. Tonio Fajardo Work Phone: [facility] 07-19-2022 14:30-0500 Respiratory rate 24 /min Dr. Tonio Fajardo Work Phone: [facility] 07-19-2022 14:30-0500 SaO2% (BldA) [Mass fraction] 97 % Dr. Tonio Fajardo Work Phone: [facility] 07-19-2022 14:30-0500 Systolic blood pressure 117 mm[Hg] Dr. Tonio Fajardo Work Phone: [facility] 07-18-2022 13:29-0500 Body temperature 97.1 [degF] Dr. Tonio Fajardo Work Phone: [facility] 07-18-2022 13:29-0500 Diastolic blood pressure 57 mm[Hg] Dr. Tonio Fajardo Work Phone: [facility] 07-18-2022 13:29-0500 Heart rate 83 /min Dr. Tonio Fajardo Work Phone: [facility] 07-18-2022 13:29-0500 Respiratory rate 16 /min Dr. Tonio Fajardo Work Phone: [facility] 07-18-2022 13:29-0500 Systolic blood pressure 117 mm[Hg] Dr. Tonio Fajardo Work Phone: [facility] 07-17-2022 11:23-0500 Body temperature 98.3 [degF] Dr. Tonio Fajardo Work Phone: [facility] 07-17-2022 11:23-0500 Diastolic blood pressure 58 mm[Hg] Dr. Tonio Fajardo Work Phone: [facility] 07-17-2022 11:23-0500 Heart rate 63 /min Dr. Tonio Fajardo Work Phone: [facility] 07-17-2022 11:23-0500 Respiratory rate 16 /min Dr. Tonio Fajardo Work Phone: [facility] 07-17-2022 11:23-0500 SaO2% (BldA) [Mass fraction] 97 % Dr. Tonio Fajardo Work Phone: [facility] 07-17-2022 11:23-0500 Systolic blood pressure 107 mm[Hg] Dr. Tonio Fajardo Work Phone: [facility] 07-05-2022 14:00-0500 Body mass index (BMI) [Ratio] 29 kg/m2 Dr. Tonio Fajardo Work Phone: [facility] 07-05-2022 14:00-0500 Body temperature 96.9 [degF] Dr. Tonio Fajardo Work Phone: [facility] 07-05-2022 14:00-0500 Body weight 81.[address] Tonio Fajardo Work Phone: [facility] 07-05-2022 14:00-0500 Diastolic blood pressure 63 mm[Hg] Dr. Tonio Fajardo Work Phone: [facility] 07-05-2022 14:00-0500 Heart rate 66 /min Dr. Tonio Fajardo Work Phone: [facility] 07-05-2022 14:00-0500 Respiratory rate 16 /min Dr. Tonio Fajardo Work Phone: [facility] 07-05-2022 14:00-0500 SaO2% (BldA) [Mass fraction] 97 % Dr. Tonio Fajardo Work Phone: [facility] 07-05-2022 14:00-0500 Systolic blood pressure 156 mm[Hg] Dr. Tonio Fajardo Work Phone: [facility] 06-28-2022 14:11-0500 Body mass index (BMI) [Ratio] 29.6 kg/m2 Dr. Tonio Fajardo Work Phone: [facility] 06-28-2022 14:11-0500 Body temperature 97.1 [degF] Dr. Tonio Fajardo Work Phone: [facility] 06-28-2022 14:11-0500 Body weight 83.[address] Tonio Fajardo Work Phone: [facility] 06-28-2022 14:11-0500 Diastolic blood pressure 58 mm[Hg] Dr. Tonio Fajardo Work Phone: [facility] 06-28-2022 14:11-0500 Heart rate 77 /min Dr. Tonio Fajardo Work Phone: [facility] 06-28-2022 14:11-0500 Respiratory rate 16 /min Dr. Tonio Fajardo Work Phone: [facility] 06-28-2022 14:11-0500 SaO2% (BldA) [Mass fraction] 89 % Dr. Tonio Fajardo Work Phone: [facility] 06-28-2022 14:11-0500 Systolic blood pressure 124 mm[Hg] Dr. Tonio Fajardo Work Phone: [facility] 06-21-2022 13:57-0400 Body mass index (BMI) [Ratio] 29.8 kg/m2 Dr. Tonio Fajardo Work Phone: [facility] 06-21-2022 13:57-0400 Body temperature 97 [degF] Dr. Tonio Fajardo Work Phone: [facility] 06-21-2022 13:57-0400 Body weight 83.[address] Tonio Fajardo Work Phone: [facility] 06-21-2022 13:57-0400 Diastolic blood pressure 88 mm[Hg] Dr. Tonio Fajardo Work Phone: [facility] 06-21-2022 13:57-0400 Heart rate 70 /min Dr. Tonio Fajardo Work Phone: [facility] 06-21-2022 13:57-0400 Respiratory rate 18 /min Dr. Tonio Fajardo Work Phone: [facility] 06-21-2022 13:57-0400 SaO2% (BldA) [Mass fraction] 94 % Dr. Tonio Fajardo Work Phone: [facility] 06-21-2022 13:57-0400 Systolic blood pressure 139 mm[Hg] Dr. Tonio Fajardo Work Phone: [facility] 06-14-2022 13:55-0400 Body height 167.[address] Tonio Fajardo Work Phone: [facility] Work Phone: 06-14-2022 13:53-0400 Body mass index (BMI) [Ratio] 29.5 kg/m2 Dr. Tonio Fajardo Work Phone: [facility] 06-14-2022 13:53-0400 Body temperature 97 [degF] Dr. Tonio Fajardo Work Phone: [facility] 06-14-2022 13:53-0400 Body weight 83.[address] Tonio Fajardo Work Phone: [facility] 06-14-2022 13:53-0400 Diastolic blood pressure 61 mm[Hg] Dr. Tonio Fajardo Work Phone: [facility] 06-14-2022 13:53-0400 Heart rate 66 /min Dr. Tonio Fajardo Work Phone: [facility] 06-14-2022 13:53-0400 Respiratory rate 16 /min Dr. Tonio Fajardo Work Phone: [facility] 06-14-2022 13:53-0400 SaO2% (BldA) [Mass fraction] 94 % Dr. Tonio Fajardo Work Phone: [facility] 06-14-2022 13:53-0400 Systolic blood pressure 137 mm[Hg] Dr. Tonio Fajardo Work Phone: [facility] 06-12-2022 10:32-0400 Body temperature 97.3 [degF] Dr. Tonio Fajardo Work Phone: [facility] 06-12-2022 10:32-0400 Diastolic blood pressure 63 mm[Hg] Dr. Tonio Fajardo Work Phone: [facility] 06-12-2022 10:32-0400 Heart rate 59 /min Dr. Tonio Fajardo Work Phone: [facility] 06-12-2022 10:32-0400 Respiratory rate 18 /min Dr. Tonio Fajardo Work Phone: [facility] 06-12-2022 10:32-0400 Systolic blood pressure 149 mm[Hg] Dr. Tonio Fajardo Work Phone: [facility] 05-30-2022 14:08-0400 Body height 167.[address] Tonio Fajardo Work Phone: [facility] Work Phone: 05-30-2022 14:05-0400 Body mass index (BMI) [Ratio] 29.7 kg/m2 Dr. Tonio Fajardo Work Phone: [facility] 05-30-2022 14:05-0400 Body temperature 97 [degF] Dr. Tonio Fajardo Work Phone: [facility] 05-30-2022 14:05-0400 Body weight 83.[address] Tonio Fajardo Work Phone: [facility] 05-30-2022 14:05-0400 Diastolic blood pressure 64 mm[Hg] Dr. Tonio Fajardo Work Phone: [facility] 05-30-2022 14:05-0400 Heart rate 65 /min Dr. Tonio Fajardo Work Phone: [facility] 05-30-2022 14:05-0400 Respiratory rate 18 /min Dr. Tonio Fajardo Work Phone: [facility] 05-30-2022 14:05-0400 SaO2% (BldA) [Mass fraction] 95 % Dr. Tonio Fajardo Work Phone: [facility] 05-30-2022 14:05-0400 Systolic blood pressure 145 mm[Hg] Dr. Tonio Fajardo Work Phone: [facility] 05-29-2022 14:48-0400 Body temperature 97.6 [degF] Dr. Tonio Fajardo Work Phone: [facility] Work Phone: 05-29-2022 14:48-0400 Diastolic blood pressure 51 mm[Hg] Dr. Tonio Fajardo Work Phone: [facility] Work Phone: 05-29-2022 14:48-0400 Heart rate 75 /min Dr. Tonio Fajardo Work Phone: [facility] Work Phone: 05-29-2022 14:48-0400 Systolic blood pressure 158 mm[Hg] Dr. Tonio Fajardo Work Phone: [facility] Work Phone: 05-24-2022 14:31-0400 Body height 167.[address] Tonio Fajardo Work Phone: [facility] Work Phone: 05-24-2022 14:22-0400 Body mass index (BMI) [Ratio] 29.7 kg/m2 Dr. Tonio Fajardo Work Phone: [facility] 05-24-2022 14:22-0400 Body temperature 98.2 [degF] Dr. Tonio Fajardo Work Phone: [facility] 05-24-2022 14:22-0400 Body weight 83.[address] Tonio Fajardo Work Phone: [facility] 05-24-2022 14:22-0400 Diastolic blood pressure 74 mm[Hg] Dr. Tonio Fajardo Work Phone: [facility] 05-24-2022 14:22-0400 Heart rate 74 /min Dr. Tonio Fajardo Work Phone: [facility] 05-24-2022 14:22-0400 Respiratory rate 15 /min Dr. Tonio Fajardo Work Phone: [facility] 05-24-2022 14:22-0400 SaO2% (BldA) [Mass fraction] 96 % Dr. Tonio Fajardo Work Phone: [facility] 05-24-2022 14:22-0400 Systolic blood pressure 135 mm[Hg] Dr. Tonio Fajardo Work Phone: [facility] 05-24-2022 13:26-0400 Body temperature 96.7 [degF] Dr. Tonio Fajardo Work Phone: [facility] Work Phone: 05-24-2022 13:26-0400 Diastolic blood pressure 57 mm[Hg] Dr. Tonio Fajardo Work Phone: [facility] Work Phone: 05-24-2022 13:26-0400 Heart rate 81 /min Dr. Tonio Fajardo Work Phone: [facility] Work Phone: 05-24-2022 13:26-0400 Respiratory rate 18 /min Dr. Tonio Fajardo Work Phone: [facility] Work Phone: 05-24-2022 13:26-0400 Systolic blood pressure 141 mm[Hg] Dr. Tonio Fajardo Work Phone: [facility] Work Phone: 05-17-2022 15:07-0400 Body temperature 97.5 [degF] Dr. Tonio Fajardo Work Phone: [facility] Work Phone: 05-17-2022 15:07-0400 Diastolic blood pressure 63 mm[Hg] Dr. Tonio Fajardo Work Phone: [facility] Work Phone: 05-17-2022 15:07-0400 Heart rate 71 /min Dr. Tonio Fajardo Work Phone: [facility] Work Phone: 05-17-2022 15:07-0400 Respiratory rate 20 /min Dr. Tonio Fajardo Work Phone: [facility] Work Phone: 05-17-2022 15:07-0400 Systolic blood pressure 142 mm[Hg] Dr. Tonio Fajardo Work Phone: [facility] Work Phone: 05-11-2022 16:01-0400 Body height 167.[address] Tonio Fajardo Work Phone: [facility] Work Phone: 05-11-2022 15:54-0400 Body mass index (BMI) [Ratio] 29.4 kg/m2 Dr. Tonio Fajardo Work Phone: [facility] Work Phone: 05-11-2022 15:54-0400 Body temperature 98.4 [degF] Dr. Tonio Fajardo Work Phone: [facility] Work Phone: 05-11-2022 15:54-0400 Body weight 82.[address] Tonio Fajardo Work Phone: [facility] Work Phone: 05-11-2022 15:54-0400 Diastolic blood pressure 67 mm[Hg] Dr. Tonio Fajardo Work Phone: [facility] Work Phone: 05-11-2022 15:54-0400 Heart rate 63 /min Dr. Tonio Fajardo Work Phone: [facility] Work Phone: 05-11-2022 15:54-0400 Respiratory rate 16 /min Dr. Tonio Fajardo Work Phone: [facility] Work Phone: 05-11-2022 15:54-0400 SaO2% (BldA) [Mass fraction] 96 % Dr. Tonio Fajardo Work Phone: [facility] Work Phone: 05-11-2022 15:54-0400 Systolic blood pressure 100 mm[Hg] Dr. Tonio Fajardo Work Phone: [facility] Work Phone: 05-11-2022 08:32-0400 Body mass index (BMI) [Ratio] 29.4 kg/m2 Dr. Tonio Fajardo Work Phone: [facility] Work Phone: 05-11-2022 08:32-0400 Body temperature 97.2 [degF] Dr. Tonio Fajardo Work Phone: [facility] Work Phone: 05-11-2022 08:32-0400 Body weight 82.[address] Tonio Fajardo Work Phone: [facility] Work Phone: 05-11-2022 08:32-0400 Diastolic blood pressure 62 mm[Hg] Dr. Tonio Fajardo Work Phone: [facility] Work Phone: 05-11-2022 08:32-0400 Heart rate 73 /min Dr. Tonio Fajardo Work Phone: [facility] Work Phone: 05-11-2022 08:32-0400 Respiratory rate 20 /min Dr. Tonio Fajardo Work Phone: [facility] Work Phone: 05-11-2022 08:32-0400 SaO2% (BldA) [Mass fraction] 96 % Dr. Tonio Fajardo Work Phone: [facility] Work Phone: 05-11-2022 08:32-0400 Systolic blood pressure 145 mm[Hg] Dr. Tonio Fajardo Work Phone: [facility] Work Phone: 04-28-2022 11:40-0400 Body temperature 97.4 [degF] Dr. Tonio Fajardo Work Phone: [facility] Work Phone: 04-28-2022 11:40-0400 Diastolic blood pressure 46 mm[Hg] Dr. Tonio Fajardo Work Phone: [facility] Work Phone: 04-28-2022 11:40-0400 Heart rate 66 /min Dr. Tonio Fajardo Work Phone: [facility] Work Phone: 04-28-2022 11:40-0400 Respiratory rate 20 /min Dr. Tonio Fajardo Work Phone: [facility] Work Phone: 04-28-2022 11:40-0400 SaO2% (BldA) [Mass fraction] 96 % Dr. Tonio Fajardo Work Phone: [facility] Work Phone: 04-28-2022 11:40-0400 Systolic blood pressure 138 mm[Hg] Dr. Tonio Fajardo Work Phone: [facility] Work Phone: 04-28-2022 09:44-0400 Inhaled oxygen flow rate 2 L/min Dr. Tonio Fajardo Work Phone: [facility] Work Phone: 04-28-2022 08:15-0400 Body height 167.[address] Tonio Fajardo Work Phone: [facility] Work Phone: 04-28-2022 08:15-0400 Body mass index (BMI) [Ratio] 28 kg/m2 Dr. Tonio Fajardo Work Phone: [facility] Work Phone: 04-28-2022 08:15-0400 Body weight 78.[address] Tonio Fajardo Work Phone: [facility] Work Phone: 04-26-2022 13:47-0400 Body temperature 97 [degF] Dr. Tonio Fajardo Work Phone: [facility] Work Phone: 04-26-2022 13:47-0400 Diastolic blood pressure 33 mm[Hg] Dr. Tonio Fajardo Work Phone: [facility] Work Phone: 04-26-2022 13:47-0400 Heart rate 80 /min Dr. Tonio Fajardo Work Phone: [facility] Work Phone: 04-26-2022 13:47-0400 Respiratory rate 18 /min Dr. Tonio Fajardo Work Phone: [facility] Work Phone: 04-26-2022 13:47-0400 Systolic blood pressure 118 mm[Hg] Dr. Tonio Fajardo Work Phone: [facility] Work Phone: 04-14-2022 11:11-0400 Body height 167.[address] Tonio Fajardo Work Phone: [facility] Work Phone: 04-14-2022 11:11-0400 Body mass index (BMI) [Ratio] 30.7 kg/m2 Dr. oTnio Fajardo Work Phone: [facility] Work Phone: 04-14-2022 11:11-0400 Body temperature 95.8 [degF] Dr. Tonio Fajardo Work Phone: [facility] Work Phone: 04-14-2022 11:11-0400 Body weight 86.[address] Tonio Fajardo Work Phone: [facility] Work Phone: 04-14-2022 11:11-0400 Diastolic blood pressure 68 mm[Hg] Dr. Tonio Fajardo Work Phone: [facility] Work Phone: 04-14-2022 11:11-0400 Heart rate 34 /min Dr. Tonio Fajardo Work Phone: [facility] Work Phone: 04-14-2022 11:11-0400 Respiratory rate 16 /min Dr. Tonio Fajardo Work Phone: [facility] Work Phone: 04-14-2022 11:11-0400 SaO2% (BldA) [Mass fraction] 91 % Dr. Tonio Fajardo Work Phone: [facility] Work Phone: 04-14-2022 11:11-0400 Systolic blood pressure 163 mm[Hg] Dr. Tonio Fajardo Work Phone: [facility] Work Phone: 04-14-2022 10:36-0400 Body temperature 96.7 [degF] Dr. Tonio Fajardo Work Phone: [facility] Work Phone: 04-14-2022 10:36-0400 Diastolic blood pressure 71 mm[Hg] Dr. Tonio Fajardo Work Phone: [facility] Work Phone: 04-14-2022 10:36-0400 Heart rate 64 /min Dr. Tonio Fajardo Work Phone: [facility] Work Phone: 04-14-2022 10:36-0400 Respiratory rate 23 /min Dr. Tonio Fajardo Work Phone: [facility] Work Phone: 04-14-2022 10:36-0400 SaO2% (BldA) [Mass fraction] 94 % Dr. Tonio Fajardo Work Phone: [facility] Work Phone: 08-26-2022 10:36-0400 Systolic blood pressure 153 mm[Hg] Dr. Tonio Fajardo Work Phone: [facility] Work Phone: 04-14-2022 08:24-0400 Body mass index (BMI) [Ratio] 30.2 kg/m2 Dr. Tonio Fajardo Work Phone: [facility] Work Phone: 04-14-2022 08:24-0400 Body weight 85.[address] Tonio Fajardo Work Phone: [facility] Work Phone: 04-12-2022 13:50-0400 Body temperature 97.8 [degF] Dr. Tonio Fajardo Work Phone: [facility] Work Phone: 04-12-2022 13:50-0400 Diastolic blood pressure 74 mm[Hg] Dr. Tonio Fajardo Work Phone: [facility] Work Phone: 04-12-2022 13:50-0400 Heart rate 69 /min Dr. Tonio Fajardo Work Phone: [facility] Work Phone: 04-12-2022 13:50-0400 Respiratory rate 18 /min Dr. Tonio Fajardo Work Phone: [facility] Work Phone: 04-12-2022 13:50-0400 Systolic blood pressure 107 mm[Hg] Dr. Tonio Fajardo Work Phone: [facility] Work Phone: 04-05-2022 13:34-0400 Body temperature 101.61 [degF] Steven Melgar APRN.ASSISTANT PROFESSOR OF BIOLOGY Work Phone: [facility] 04-05-2022 13:34-0400 Body weight 87.09 kg Stveen Melgar APRN.ASSISTANT PROFESSOR OF BIOLOGY Work Phone: [facility] 04-05-2022 13:34-0400 Diastolic blood pressure 76 mm[Hg] Steven Praisler-Wood MEDICAL PRACTICE ASSISTANT.ASSISTANT PROFESSOR OF BIOLOGY Work Phone: [facility] 04-05-2022 13:34-0400 Heart rate 76 /min Steven Praisler-Wood MEDICAL PRACTICE ASSISTANT.ASSISTANT PROFESSOR OF BIOLOGY Work Phone: [facility] 04-05-2022 13:34-0400 Respiratory rate 16 /min Steven Praisler-Wood MEDICAL PRACTICE ASSISTANT.ASSISTANT PROFESSOR OF BIOLOGY Work Phone: [facility] 04-05-2022 13:34-0400 SaO2% (BldA) [Mass fraction] 94 % Steven Praisler-Wood MEDICAL PRACTICE ASSISTANT.ASSISTANT PROFESSOR OF BIOLOGY Work Phone: [facility] 04-05-2022 13:34-0400 Systolic blood pressure 122 mm[Hg] Steven Praisler-Wood MEDICAL PRACTICE ASSISTANT.ASSISTANT PROFESSOR OF BIOLOGY Work Phone: [facility] 03-01-2022 13:16-0400 Body temperature 97.6 [degF] Dr. Tonio Fajardo Work Phone: [facility] Work Phone: 03-01-2022 13:16-0400 Diastolic blood pressure 73 mm[Hg] Dr. Tonio Fajardo Work Phone: [facility] Work Phone: 03-01-2022 13:16-0400 Heart rate 70 /min Dr. Tonio Fajardo Work Phone: [facility] Work Phone: 03-01-2022 13:16-0400 Respiratory rate 18 /min Dr. Tonio Fajardo Work Phone: [facility] Work Phone: 03-01-2022 13:16-0400 Systolic blood pressure 141 mm[Hg] Dr. Tonio Fajardo Work Phone: [facility] Work Phone: 02-08-2022 13:06-0400 Body temperature 98.1 [degF] Dr. Tonio Fajardo Work Phone: [facility] Work Phone: 02-08-2022 13:06-0400 Diastolic blood pressure 63 mm[Hg] Dr. Tonio Fajardo Work Phone: [facility] Work Phone: 02-08-2022 13:06-0400 Heart rate 83 /min Dr. Tonio Fajardo Work Phone: [facility] Work Phone: 02-08-2022 13:06-0400 Respiratory rate 20 /min Dr. Tonio Fajardo Work Phone: [facility] Work Phone: 02-08-2022 13:06-0400 Systolic blood pressure 131 mm[Hg] Dr. Tonio Fajardo Work Phone: [facility] Work Phone: 01-17-2022 10:56-0400 Body height 167.[address] Tonio Fajardo Work Phone: [facility] Work Phone: 01-17-2022 10:56-0400 Body mass index (BMI) [Ratio] 31.9 kg/m2 Dr. Tonio Fajardo Work Phone: [facility] Work Phone: 01-17-2022 10:56-0400 Body weight 89.[address] Tonio Fajardo Work Phone: [facility] Work Phone: 01-17-2022 10:56-0400 Diastolic blood pressure 44 mm[Hg] Dr. Tonio Fajardo Work Phone: [facility] Work Phone: 01-17-2022 10:56-0400 Heart rate 64 /min Dr. Tonio Fajardo Work Phone: [facility] Work Phone: 01-17-2022 10:56-0400 Respiratory rate 22 /min Dr. Tonio Fajardo Work Phone: [facility] Work Phone: 01-17-2022 10:56-0400 SaO2% (BldA) [Mass fraction] 95 % Dr. Tonio Fajardo Work Phone: [facility] Work Phone: 01-17-2022 10:56-0400 Systolic blood pressure 101 mm[Hg] Dr. Tonio Fajardo Work Phone: [facility] Work Phone: 01-17-2022 10:56-0400 Body height 167.[address] Tonio Fajardo Work Phone: [facility] Work Phone: 01-17-2022 10:56-0400 Body mass index (BMI) [Ratio] 31.9 kg/m2 Dr. Tonio Fajardo Work Phone: [facility] Work Phone: 01-17-2022 10:56-0400 Body weight 89.[address] Tonio Fajardo Work Phone: [facility] Work Phone: 01-17-2022 10:56-0400 Diastolic blood pressure 44 mm[Hg] Dr. Tonio Fajardo Work Phone: [facility] Work Phone: 01-17-2022 10:56-0400 Heart rate 64 /min Dr. Tonio Fajardo Work Phone: [facility] Work Phone: 01-17-2022 10:56-0400 Respiratory rate 22 /min Dr. Tonio Fajardo Work Phone: [facility] Work Phone: 01-17-2022 10:56-0400 SaO2% (BldA) [Mass fraction] 95 % Dr. Tonio Fajardo Work Phone: [facility] Work Phone: 01-17-2022 10:56-0400 Systolic blood pressure 101 mm[Hg] Dr. Tonio Fajardo Work Phone: [facility] Work Phone: 01-04-2022 12:59-0400 Body temperature 96.4 [degF] Dr. Tonio Fajardo Work Phone: [facility] Work Phone: 01-04-2022 12:59-0400 Diastolic blood pressure 64 mm[Hg] Dr. Tonio Fajardo Work Phone: [facility] Work Phone: 01-04-2022 12:59-0400 Heart rate 70 /min Dr. Tonio Fajardo Work Phone: [facility] Work Phone: 01-04-2022 12:59-0400 Respiratory rate 16 /min Dr. Tonio Fajardo Work Phone: [facility] Work Phone: 01-04-2022 12:59-0400 Systolic blood pressure 135 mm[Hg] Dr. Tonio Fajardo Work Phone: [facility] Work Phone: 12-21-2021 13:10-0400 Body temperature 97 [degF] [facility] Work Phone: 12-21-2021 13:10-0400 Diastolic blood pressure 62 mm[Hg] [facility] Work Phone: 12-21-2021 13:10-0400 Heart rate 88 /min [facility] Work Phone: 12-21-2021 13:10-0400 Systolic blood pressure 173 mm[Hg] [facility] Work Phone: 12-18-2021 00:38-0400 Respiratory rate 16 /min [facility] Work Phone: 11-29-2021 13:03-0400 Body temperature 97.4 [degF] [facility] Work Phone: 11-29-2021 13:03-0400 Diastolic blood pressure 43 mm[Hg] [facility] Work Phone: 11-29-2021 13:03-0400 Heart rate 69 /min [facility] Work Phone: 11-29-2021 13:03-0400 Respiratory rate 16 /min [facility] Work Phone: 11-29-2021 13:03-0400 Systolic blood pressure 134 mm[Hg] [facility] Work Phone: 11-09-2021 13:07-0400 Body temperature 97 [degF] [facility] Work Phone: 11-09-2021 13:07-0400 Diastolic blood pressure 41 mm[Hg] [facility] Work Phone: 11-09-2021 13:07-0400 Heart rate 73 /min [facility] Work Phone: 11-09-2021 13:07-0400 Respiratory rate 18 /min [facility] Work Phone: 11-09-2021 13:07-0400 Systolic blood pressure 126 mm[Hg] [facility] Work Phone: Encounters Encounter Date Encounter Type Care Provider Facility Start: 05-04-2025 ambulatory Tonio Fajardo Facility: [facility] Start: 05-04-2025 Jakob Goddard DO -[facility] Start: 05-04-2025 End: 05-04-[address] Tonio Fajardo DO Work Phone: -Endoscopy Start: 05-04-2025 End: 05-04-2025 Jakob Goddard DO -Endoscopy Work Phone: Start: 04-28-2025 End: 04-28-[address] Tonio Fajardo DO Work Phone: -[facility] Start: 04-28-2025 End: 04-28-2025 Carol Sousa [facility] Work Phone: Start: 04-23-2025 Evaluation and management of inpatient [facility] Facility:[facility] Start: 04-23-2025 Dr. Valdez Olivo MD - ansitional Care Unit Start: 04-23-2025 Dr. Tonio Mccallum DO [facility] Work Phone: Start: 04-21-2025 Dr. Tonio Mccallum DO [facility] Work Phone: Start: 04-20-2025 Dr. Tonio Mccallum [facility] Work Phone: Start: 04-20-2025 ambulatory [facility] Facility: [facility] Start: 04-20-2025 End: 04-23-2025 Evaluation and management of inpatient Dr. Tonio Fajardo DO Work Phone: -Progressive Care Unit Start: 04-20-2025 End: 04-23-2025 Dr. Tonio Mccallum DO [facility] Work Phone: Start: 04-19-2025 ambulatory [facility] Facility: [facility] Start: 04-19-[address] Tonio Fajardo DO Work Phone: -Progressive Care Unit Start: 04-19-2025 Dr. Kwaku Narayanan DO Progressive Care Unit Work Phone: Start: 04-19-2025 End: 04-19-[address] Tonio Fajardo DO Work Phone: -[facility] Start: 04-19-2025 End: 04-19-2025 Dr. [...] management of inpatient DR DAVID STERLING MD [facility] Start: 04-12-2025 End: 04-13-2025 Dr. [...] Unit Start: 04-10-2025 End: 04-10-2025 Carol Sousa [facility] Work Phone: Start: 04-10-2025 Dr. Nicola Roman MD [facility] Work Phone: Start: 04-10-2025 End: 04-10-[address] Tonio Fajardo DO Work Phone: -[facility] Start: 04-10-2025 End: 04-10-2025 Dr. Issa Looney MD -[facility] Work Phone: Start: 04-09-2025 Dr. Santos Hsu MD -[facility] Start: 04-09-2025 Dr. Nicola Roman MD -[facility] Work Phone: Start: 04-08-2025 Dr. Issa Looney MD -[facility] Start: 04-08-2025 Dr. Nicola Roman MD [...] 04-02-2025 End: 04-02-2025 ambulatory Carmelina E Aida Facility:[facility] Start: 03-27-2025 End: 03-27-[address] Tonio Fajardo DO Work Phone: -Pulmonary Services/Neurology Start: 03-27-2025 End: 03-27-2025 Patient encounter procedure Leslie DAMIAN -Pulmonary Services/Neurology Work Phone: Start: 03-27-2025 End: 03-27-2025 Leslie DAMIAN -Pulmonary Services/Neurology Work Phone: Start: 03-27-2025 End: 03-27-2025 ambulatory Leslie DAMIAN Facility:[facility] Start: 03-18-2025 End: 03-18-[address] Tonio Fajardo DO Work Phone: -Laboratory [facility] Villanueva [facility] Start: 03-18-2025 End: 03-18-[address] [facility] Start: 03-18-2025 End: 03-18-2025 Dr. [facility] Start: 03-17-2025 End: 03-17-2025 Patient encounter procedure Leslie Arriaga [facility] Work Phone: Start: 03-17-2025 End: 03-17-2025 Leslie Arriaga [facility] Work Phone: Start: 03-17-2025 End: 03-18-[address] Tonio Fajardo DO Work Phone: [facility] Start: 03-15-2025 End: 03-15-2025 Dr. Alex Matias MD -Emergency [facility] t Work Phone: Start: 03-15-2025 End: 03-15-2025 Emergency department patient visit Dr. Tonio Fajardo DO Work Phone: -Emergency Department Work Phone: Start: 03-09-2025 Non-patient / Non-visit Dr. Deric Lantigua MD -[facility] Work Phone: Start: 03-09-2025 Dr. Deric Lantigua MD [facility] Work Phone: Start: 03-09-2025 Non-patient / Non-visit Dr. Willian Glaser MD -[facility] Start: 03-09-2025 Dr. Willian Glaser MD [facility] Start: 03-08-2025 Non-patient / Non-visit Dr. Marjorie castellano MD [facility] Start: 03-08-2025 Dr. Marjorie Green MD [facility] Start: 03-07-2025 Non-patient / Non-visit Dr. Deric Lantigua MD [facility] Work Phone: Start: 03-07-2025 Dr. Deric Lantigua MD -[facility] Work Phone: Start: 03-06-2025 Non-patient / Non-visit Dr. Deric Lantigua MD -[facility] Work Phone: Start: 03-06-2025 Dr. Deric Lantigua MD -[facility] Work Phone: Start: 03-06-2025 Non-patient / Non-visit Dr. Marjorie castellano MD [facility] Start: 03-06-2025 Dr. [address] Green MD [facility] Start: 03-05-2025 ambulatory Marjorie Peter Facility:[facility] Start: 03-05-2025 Non-patient / [facility] Start: 03-05-2025 Dr. Marjorie Green MD [facility] Start: 03-05-2025 Non-patient / Non-visit Dr. Deric Lantigua MD -[facility] Work Phone: Start: 03-05-2025 Dr. Deric Lantigua MD -[facility] Work Phone: Start: 03-04-2025 ambulatory Nicola Mayesi ty:[facility] Start: 03-04-2025 End: 03-09-2025 Evaluation and management of inpatient Dr. Nicola Lindsey DO -[facility] Work Phone: Start: 03-04-2025 End: 03-09-2025 Dr. Deric Lantigua MD -[facility] U nit Work Phone: Start: 11-06-[address] Russ Zamora MD -[facility] Start: 11-06-2024 End: 11-06-[address] Russ Zamora MD -[facility] Work Phone: Start: 11-06-2024 End: 11-06-2024 ambulatory [facility] Facility:[facility] Start: 10-30-2024 End: 10-30-[address] Tonio Fajardo DO Work Phone: [facility] Work Phone: Start: 10-30-2024 End: 10-30-[address] Russ Zamora MD -Cat Scan, [facility] Work Phone: Start: 10-30-2024 End: 10-30-2024 ambulatory Russ Zamora Facility:[facility] Start: 10-23-2024 End: 10-23-2024 Patient encounter procedure Lorie Mart NP-C -[place] [facility] Work Phone: Start: 10-23-2024 End: 10-23-2024 ambulatory Tonio Fajardo Facility:[facility] Start: 10-20-2024 End: 10-20-[address] Tonio Fajardo DO Work Phone: [facility] Work Phone: Start: 10-20-2024 End: 10-20-[address] Tonio Fajardo DO -Laboratory, [facility] Start: 10-20-2024 End: 10-20-2024 ambulatory Tonio Fajardo Facility:[facility] Start: 10-17-2024 ambulatory Tonio Scotty Facility: [facility] Start: 10-17-2024 Non-patient / Non-visit Dr. Tyrell zuniga DO -[facility] Start: 10-16-2024 End: 10-16-[address] Tonio Fajardo DO Work Phone: [facility] Work Phone: Start: 10-16-2024 End: 10-16-2024 Patient encounter procedure Lorie ZHONG -Pulmonary Services/Neurology Work Phone: Start: 10-16-2024 End: 10-16-2024 ambulatory Tonio Scotty Facility:[facility] Start: 09-25-2024 End: 09-25-2024 Patient encounter procedure Leslie DAMIAN -[facility] Work Phone: Start: 09-25-2024 End: 09-25-2024 ambulatory Tonio Scotty Facility:[facility] Start: 09-25-2024 End: 09-25-2024 ambulatory Tonio Scotty Facility:[facility] Start: 07-03-2024 End: 07-03-[address] Joaquim Suárez [facility] -Laboratory, Specimen Work Phone: Start: 07-03-2024 End: 07-03-2024 ambulatory Tonio Scotty Facility:[facility] Start: 06-17-2024 End: 06-17-2024 ambulatory Tonio [facility] Facility:[facility] Start: 12-24-2023 End: 12-24-[address] Tonio Fajardo Work Phone: [facility] Work Phone: Start: 12-24-2023 End: 12-24-[address] Tonio Fajardo Work Phone: [facility]-Laboratory, Specimen Work Phone: Start: 11-12-2023 End: 11-12-[address] Tonio Fajardo Work Phone: [facility] Work Phone: Start: 11-06-[address] Tonio Fajardo Work Phone: [facility] On[facility] Start: 10-31-2023 End: 10-31-[address] Tonio Fajardo Work Phone: [facility] Pulmonary Medicine Work Phone: Start: 10-18-2023 End: 10-18-[address] Tonio Fajardo Work Phone: [facility] Work Phone: Start: 10-12-2023 End: 10-12-[address] Tonio Fajardo Work Phone: [facility] Work Phone: Start: 10-12-2023 End: 10-12-[address] Tonio Fajardo Work Phone: [facility]-Cat Scan, [facility] Work Phone: Start: 08-29-2023 End: 08-29-[address] Tonio Fajardo Work Phone: [facility] Work Phone: Start: 08-22-2023 Non-patient / Non-visit Dr. Min Fajardo Work Phone: [facility] Start: 08-22-2023 End: 08-22-[address] Tonio Fajardo Work Phone: [facility]-Cardiovascula r Services Work Phone: Start: 07-26-2023 End: 07-26-[address] Tonio Fajardo Work Phone: [facility] Work Phone: Start: 07-26-2023 End: 07-26-[address] Tonio Fajardo Work Phone: [facility] Work Phone: Start: 07-25-2023 End: 07-25-[address] Tonio Fajardo Work Phone: [facility]-Pulmonary Medicine [facility] Work Phone: Start: 06-22-2023 End: 06-22-[address] Tonio Fajardo Work Phone: [facility] Work Phone: Start: 06-22-2023 End: 06-22-[address] Tonio Fajardo Work Phone: [facility]-Laboratory, Specimen Work Phone: Start: 06-08-2023 End: 06-08-2023 Admission to same day surgery center Dr. Tonio Fajardo [facility] Start: 06-08-2023 End: 06-08-[address] Tonio Fajardo Work Phone: [facility] Work Phone: Start: 05-02-2023 End: 05-19-[address] [facility] Fajardo [facility] Work Phone: Start: 04-20-2023 Non-patient / Non-visit Dr. Min Fajardo Work Phone: [facility] Start: 04-18-2023 End: 04-19-[address] Tonio Fajardo Work Phone: [facility] Work Phone: Start: 04-18-2023 End: 04-19-[address] Ton[facility] Fajardo [facility] Work Phone: Start: 04-17-[address] Tonio Fajardo Work Phone: [facility] On[facility] Start: 04-17-2023 End: 04-17-[address] Tonio Fajardo Work Phone: [facility] Work Phone: Start: 04-10-2023 End: 04-10-[address] Tonio Fajardo Work Phone: [facility] Work Phone: Start: 04-10-2023 End: 04-10-[address] Tonio Fajardo Work Phone: [facility] Work Phone: Start: 04-02-2023 Non-patient / Non-visit Dr. Min Fajardo Work Phone: [facility] Start: 04-02-[address] Tonio Fajardo Work Phone: [facility] Work Phone: Start: 03-19-2023 Non-patient / Non-visit Dr. Min Fajardo Work Phone: [facility] Start: 03-19-2023 End: 03-19-[address] Tonio Fajardo Work Phone: [facility] Work Phone: Start: 03-19-2023 End: 03-19-[address] Tonio Fajardo Work Phone: [facility] Work Phone: Start: 03-05-2023 Non-patient / Non-visit Dr. Min Fajardo Work Phone: [facility] Start: 02-23-2023 End: 02-23-[address] Tonio Fajardo Work Phone: [facility] Work Phone: Start: 02-19-2023 Non-patient / Non-visit Dr. Min Fajardo Work Phone: [facility] Start: 02-05-2023 Non-patient / Non-visit Dr. Min Fajardo Work Phone: [facility] Start: 02-05-2023 End: 02-16-[address] Tonio Fajardo Work Phone: [facility] Work Phone: Start: 02-05-2023 End: 02-16-[address] Tonio Fajardo Work Phone: [facility] Work Phone: Start: 01-22-2023 Non-patient / Non-visit Dr. Min Fajardo Work Phone: [facility] Start: 01-08-2023 Non-patient / Non-visit Dr. Min Fajardo Work Phone: [facility] Start: 01-08-2023 End: 01-17-[address] Tonio Fajardo Work Phone: [facility] Work Phone: Start: 01-08-2023 End: 01-17-[address] Tonio Fajardo Work Phone: [facility] Start: 12-30-2022 End: 12-31-2022 Emergency department patient visit Dr. Tonio Fajardo Work Phone: [facility]-Emergency Department Start: 12-25-2022 Non-patient / Non-visit Dr. Min Fajardo Work Phone: [facility] Start: 12-25-[address] Ton[facility]ajardo [facility] Start: 12-18-2022 Non-patient / Non-visit Dr. Min Fajardo Work Phone: [facility] Start: 12-12-2022 End: 12-12-[address] Tonio Fajardo [facility] Start: 12-11-2022 Non-patient / Non-visit Dr. Min Fajardo Work Phone: [facility] Start: 12-11-2022 End: 12-17-[address] Tonio Fajardo Work Phone: [facility] Work Phone: Start: 12-11-2022 End: 12-17-[address] Tonio Fajardo Work Phone: [facility] Start: 12-06-2022 Non-patient / Non-visit Dr. Min Fajardo Work Phone: [facility] Start: 11-27-2022 Non-patient / Non-visit Dr. Min Fajardo Work Phone: [facility] Start: 11-20-2022 Non-patient / Non-visit Dr. Min Fajardo Work Phone: [facility] Start: 11-08-2022 Non-patient / Non-visit Dr. Min Fajardo Work Phone: [facility] Start: 11-08-2022 End: 11-17-[address] Tonio Fajardo Work Phone: [facility] Start: 10-30-2022 Non-patient / Non-visit Dr. Min Fajardo Work Phone: [facility] Start: 10-23-2022 Non-patient / Non-visit Dr. Min Fajardo Work Phone: [facility] Start: 10-18-2022 Non-patient / Non-visit Dr. Min Fajardo Work Phone: [facility] Start: 10-16-[address] Tonio Fajardo Work Phone: [facility] On[facility] Start: 10-16-2022 End: 10-16-[address] Tonio Fajardo Work Phone: [facility] Start: 10-09-2022 Non-patient / Non-visit Dr. Min Fajardo Work Phone: [facility] Start: 10-09-2022 End: 10-09-[address] Tonio Fajardo Work Phone: [facility] Start: 10-09-2022 End: 10-17-[address] Tonio Fajardo Work Phone: [facility] Work Phone: Start: 10-09-2022 End: 10-17-[address] Ton[facility] Fajardo [facility] Start: 10-09-[address] Tonio Fajardo Work Phone: [facility] Start: 10-02-2022 Non-patient / Non-visit Dr. Min Fajardo Work Phone: [facility] Start: 10-02-2022 End: 10-02-[address] Tonio Fajardo Work Phone: [facility] Start: 09-25-2022 Non-patient / Non-visit Dr. Min Fajardo Work Phone: [facility] Start: 09-18-2022 Non-patient / Non-visit Dr. Min Fajardo Work Phone: [facility] Start: 09-18-2022 End: 09-19-[address] Tonio Fajardo Work Phone: [facility] Work Phone: Start: 09-18-2022 End: 09-19-[address] Tonio Fajardo [facility] Start: 08-29-2022 Non-patient / Non-visit Dr. Min Fajardo Work Phone: [facility] Start: 08-15-2022 Non-patient / Non-visit Dr. Min Fajardo Work Phone: [facility] Start: 08-15-2022 End: 08-19-[address] Tonio Fajardo Work Phone: [facility] Work Phone: Start: 08-15-2022 End: 08-19-[address] Tonio Fajardo Work Phone: [facility] Start: 08-08-2022 End: 08-08-[address] Tonio Fajardo Work Phone: [facility] Start: 08-01-2022 Non-patient / Non-visit Dr. Min Fajardo Work Phone: [facility] Start: 07-28-2022 Telephone encounter Steven Parra APRN.CNP Work Phone: [facility] Comment on above: Patient Update Start: 07-19-2022 End: 07-19-[address] Tonio Fajardo Work Phone: [facility] Start: 07-18-2022 Non-patient / Non-visit Dr. Min Fajardo Work Phone: [facility] Start: 07-18-2022 End: 07-19-[address] Tonio Fajardo Work Phone: [facility] Work Phone: Start: 07-18-2022 End: 07-19-[address] Tonio Fajardo Work Phone: [facility] Start: 07-17-2022 End: 07-17-[address] Tonio Fajardo Work Phone: [facility] Start: 07-09-[address] Tonio Fajardo [facility] Start: 07-09-2022 Non-patient / Non-visit Dr. Min Fajardo Work Phone: [facility] Start: 07-05-2022 End: 07-05-[address] Tonio Fajardo Work Phone: [facility] Start: 06-28-2022 End: 06-28-[address] Tonio Fajardo Work Phone: [facility] Start: 06-26-2022 Non-patient / Non-visit Dr. Min Fajardo Work Phone: [facility] Start: 06-21-2022 End: 06-21-[address] Tonio Fajardo Work Phone: [facility] Start: 06-19-[address] Tonio Fajardo [facility] Start: 06-14-2022 End: 06-14-[address] Tonio Fajardo Work Phone: [facility] Start: 06-12-2022 Non-patient / Non-visit Dr. Min Fajardo Work Phone: [facility] Start: 06-12-2022 End: 06-19-[address] Tonio Fajardo Work Phone: [facility] Work Phone: Start: 06-12-2022 End: 06-19-[address] Tonio Fajardo [facility] Start: 06-06-2022 Non-patient / Non-visit Dr. Min Fajardo Work Phone: [facility] Start: 06-02-2022 Non-patient / Non-visit Dr. Min Fajardo Work Phone: [facility] Start: 06-02-2022 End: 06-02-[address] Tonio Fajardo Work Phone: [facility] Work Phone: Start: 06-02-2022 End: 06-02-[address] Tonio Fajardo Work Phone: [facility]-Pulmonary Services/Neurology Start: 06-01-2022 Non-patient / Non-visit Dr. Min Fajardo Work Phone: [facility] Start: 06-01-[address] Tonio Fajardo Work Phone: [facility]-Radiation Oncology Start: 05-30-[address] Tonio Fajardo Work Phone: [facility] Start: 05-30-2022 End: 05-30-[address] Tonio Fajardo Work Phone: [facility] Start: 05-29-2022 Non-patient / Non-visit Dr. Min Fajardo Work Phone: [facility] Start: 05-29-[address] Tonio Fajardo [facility] Start: 05-24-2022 End: 05-24-[address] Tonio Fajardo Work Phone: [facility] Start: 05-24-2022 Non-patient / Non-visit Dr. Min Fajardo Work Phone: [facility] Start: 05-24-[address] Tonio Fajardo [facility] Start: 05-22-2022 End: 05-22-[address] Tonio Fajardo Work Phone: [facility] Work Phone: Start: 05-22-2022 End: 05-22-[address] Tonio Fajardo Work Phone: [facility] Start: 05-17-2022 Non-patient / Non-visit Dr. Min Fajardo Work Phone: [facility] Start: 05-17-2022 End: 05-19-[address] Tonio Fajardo Work Phone: [facility] Work Phone: Start: 05-17-2022 End: 05-19-[address] Tonio Fajardo [facility] Start: 05-17-[address] Tonio Fajardo Work Phone: [facility] On[facility] Start: 05-11-2022 End: 05-11-[address] Tonio Fajardo Work Phone: [facility] Start: 05-11-2022 End: 05-11-[address] Tonio Fajardo [facility] Phone[facility] Start: 04-28-2022 Non-patient / Non-visit Dr. Min Fajardo Work Phone: [facility] Start: 04-28-2022 End: 04-28-[address] Tonio Fajardo Work Phone: [facility] Work Phone: Start: 04-28-2022 End: 04-28-[address] Tonio Fajardo Work Phone: [facility] Start: 04-26-[address] Tonio Fajardo Work Phone[facility] Start: 04-14-2022 End: 04-14-[address] Tonio Fajardo Work Phone: [facility] Work Phone: Start: 04-14-2022 End: 04-14-[address] Tonio Fajardo Work Phone: [facility]-Laboratory, Pavilion Start: 04-14-2022 End: 04-14-2022 Emergency department patient visit Dr. Tonio Fajardo Work Phone: [facility]Emergency Department Start: 04-12-2022 End: 04-12-[address] Tonio Fajardo Work Phone: [facility] Work Phone: Start: 04-12-2022 End: 04-12-[address] Tonio Fajardo Work Phone: [facility] Start: 04-12-2022 End: 04-19-[address] Tonio Fajardo Work Phone: [facility] Work Phone: Start: 04-12-2022 End: 04-19-[address] Tonio Fajardo Work Phone: [facility] Start: 04-12-[address] Tonio Fajardo Work Phone: [facility] Start: 04-06-2022 Telephone encounter Carlos Rivera MD Work Phone: [facility] Comment on above: Results (COVID+) Start: 04-05-2022 End: 04-05-2022 ambulatory TONIO FAJARDO Facility:[facility] Start: 04-05-2022 Telephone encounter Steven Parra APRN.CNP Work Phone: [facility] Comment on above: Results Start: 04-05-2022 End: 04-05-2022 [facility]: [facility] Comment on above: Acute cough [R05.1] Start: 04-05-2022 End: 04-05-2022 Patient encounter procedure Steven Melgar APRN.CNP Work Phone: [facility] Comment on above: Burning with urinati on (Primary Dx); Acute cough; Suspected COVID-19 virus infection Start: 03-01-2022 End: 03-19-[address] Tonio Fajardo Work Phone: [facility] Start: 02-08-2022 End: 02-16-[address] Tonio Fajardo Work Phone: [facility] Start: 01-17-2022 End: 01-17-[address] Tonio Fajardo Work Phone: [facility] Start: 01-04-2022 End: 01-17-[address] Tonio Fajardo Work Phone: [facility] Start: 12-21-2021 Registered Recurring [facility] Start: 12-19-2021 End: 12-19-2021 Patient encounter procedure [facility] Start: 11-29-2021 End: 12-17-[address] [facility] Start: 11-09-2021 End: 11-17-2021 Nutrition therapy [facility] Procedures Date Procedure Procedure Detail Performing [...] 04-10-2025 Platelet mean volume determination Dr. Silvana Fajrado DO Work Phone: Start: 04-09-2025 Plain chest [...] Carbon dioxide measurement, partial pressure Dr. Tonio Fajardo DO Work [...] Radiologic exam chest 2 views Steven Melgar MEDICAL PRACTICE ASSISTANT.ASSISTANT PROFESSOR OF BIOLOGY Work Phone: Start: 04-05-2022 Urnls dip stick/tablet rgnt auto w/o microscopy Onelia Cuevas MEDICAL PRACTICE ASSISTANT.ASSISTANT PROFESSOR OF BIOLOGY Work Phone: Start: 11-02-2021 X-ray of both feet Anaerobic microbial culture Dr. Tonio Fajardo Work Phone: Anaerobic microbial culture Dr. Tonio Fajardo Work Phone: Anaerobic microbial culture Dr. Tonio Fajardo Work Phone: Bacteria identified in Blood by Culture Dr. Tonio Fajardo Work Phone: Investigation of tra nsfusion reaction Dr. Toino Fajardo Work Phone: Investigation of tra nsfusion [...] Activity Detail Author Start: 05-05-2025 Patient discharge [facility] Start: 05-04-2025 [facility] Start: 05-01-2025 Administration of bl ood product [facility] Start: 05-01-2025 [facility] Start: 04-30-2025 Referral to gastroenterology service [facility] Start: 04-29-2025 [facility] Start: 04-28-2025 [facility] Start: 04-25-2025 Speech therapy management [facility] Start: 04-24-2025 Speech therapy assessment [facility] Start: 04-24-2025 [facility] Start: 04-24-2025 Development of care plan [facility] Start: 04-24-2025 Developing a treatme nt plan [facility] Start: 04-24-2025 End: 04-24-2025 Consultation for treatment [facility] Start: 04-24-2025 Contact precautions [facility] Start: 04-23-2025 Following clinical p athway protocol [facility] Start: 04-23-2025 Admission procedure [facility] Start: 04-23-2025 Introduction of urin dakota catheter [facility] Start: 04-23-2025 Measuring intake and output [facility] Start: 04-23-2025 End: 04-24-2025 Patient referral to dietitian [facility] Start: 04-23-2025 Referral to occupati onal therapist [facility] Start: 04-23-2025 Referral to service [facility] Start: 04-23-2025 Verification routine [facility] Start: 04-23-2025 Vital signs measurements [facility] Start: 04-23-2025 End: 04-23-2025 [facility] Start: 04-23-2025 Patient discharge [facility] Start: 04-23-2025 Oxygen therapy [facility] Start: 04-22-2025 Inhalation therapy procedure [facility] Start: 04-20-2025 Admission procedure [facility] Start: 04-20-2025 [facility] Start: 04-19-2025 Following clinical p athway protocol [facility] Start: 04-19-2025 Ambulation without limitation [facility] Start: 04-19-2025 Assessment of risk o f venous thromboembolism [facility] Start: 04-19-2025 Care regimes management [facility] Start: 04-19-2025 Insertion of cathete r into peripheral vein [facility] Start: 04-19-2025 Measuring intake and output [facility] Start: 04-19-2025 Notification of physician [facility] Start: 04-19-2025 Oxygen therapy [facility] Start: 04-19-2025 Providing care accor ding to standard [facility] Start: 04-19-2025 Referral to occupati onal therapist [facility] Start: 04-19-2025 Referral to service [facility] Start: 04-19-2025 End: 04-19-2025 [facility] Start: 04-19-2025 End: 04-19-2025 Serum inorganic phosphate measurement [facility] Start: 04-19-2025 Verification routine [facility] Start: 04-19-2025 Hospital admission, emergency, from emergency room, medical nature [facility] Start: 04-19-2025 Admission procedure [facility] Start: 04-19-2025 End: 04-19-2025 [facility] Start: 04-19-2025 Patient discharge [facility] Start: 04-19-2025 Patient referral to dietitian [facility] Start: 04-18-2025 [facility] Start: 04-18-2025 Development of care plan [facility] Start: 04-18-2025 Developing a treatme nt plan [facility] Start: 04-18-2025 Consultation for treatment [facility] Start: 04-18-2025 Wound care [facility] Start: 04-17-2025 Admission procedure [facility] Start: 04-17-2025 Introduction of urin dakota catheter [facility] Start: 04-17-2025 Measuring intake and output [facility] Start: 04-17-2025 Patient referral to dietitian [facility] Start: 04-17-2025 Referral to occupati onal therapist [facility] Start: 04-17-2025 Referral to service [facility] Start: 04-17-2025 Vital signs measurements [facility] Start: 04-17-2025 [facility] Start: 04-17-2025 Oxygen therapy [facility] Start: 04-13-2025 Development of care plan [facility] Start: 04-13-2025 End: 04-13-2025 [facility] Start: 04-13-2025 Patient discharge [facility] Start: 04-12-2025 [facility] Start: 04-11-2025 Referral to occupati onal therapist [facility] Start: 04-11-2025 Developing a treatme nt plan [facility] Start: 04-11-2025 [facility] Start: 04-11-2025 Wound care [facility] Start: 04-11-2025 Consultation for treatment [facility] Start: 04-11-2025 Contact precautions [facility] Start: 04-10-2025 Following clinical p leniway protocol [facility] Start: 04-10-2025 Admission procedure [facility] Start: 04-10-2025 Introduction of urin dakota catheter [facility] Start: 04-10-2025 Measuring intake and output [facility] Start: 04-10-2025 End: 04-11-2025 Patient referral to dietitian [facility] Start: 04-10-2025 Referral to occupati onal therapist [facility] Start: 04-10-2025 Referral to service [facility] Start: 04-10-2025 Vital signs measurements [facility] Start: 04-10-2025 Oxygen therapy [facility] Start: 04-10-2025 Patient discharge [facility] Start: 04-10-2025 End: 04-10-2025 Microbial culture, body fluid [facility] Start: 04-10-2025 Anaerobic microbial culture [facility] Start: 04-10-2025 End: 04-10-2025 [facility] Start: 04-09-2025 Referral to service [facility] Start: 04-09-2025 Care planning and pr oblem solving actions [facility] Start: 04-09-2025 Assessment of risk o f venous thromboembolism [facility] Start: 04-09-2025 Catheterization of vein [facility] Start: 04-09-2025 Notification of physician [facility] Start: 04-09-2025 Taking patient vital signs [facility] Start: 04-09-2025 Wound care [facility] Start: 04-09-2025 End: 04-09-2025 [facility] Start: 04-09-2025 Care planning and pr oblem solving actions [facility] Start: 04-09-2025 [facility] Start: 04-08-2025 Catheterization of vein [facility] Start: 04-08-2025 Notification of physician [facility] Start: 04-08-2025 [facility] Start: 04-08-2025 Referral to die repairer forging [facility] Start: 04-08-2025 End: 04-08-2025 Referral to service [facility] Start: 04-07-2025 Referral to occupati onal therapist [facility] Start: 04-07-2025 Referral to service [facility] Start: 04-07-2025 Provision of activit y privileges [facility] Start: 04-07-2025 Wound care [facility] Start: 04-06-2025 [facility] Start: 04-06-2025 Continuous pulse oximetry [facility] Start: 04-06-2025 Consultation for treatment [facility] Start: 04-06-2025 XR Chest Single view [facility] Start: 04-06-2025 [facility] Start: 04-06-2025 Inhalation therapy procedure [facility] Start: 04-05-2025 Following clinical p athway protocol [facility] Start: 04-05-2025 Assessment of risk o f venous thromboembolism [facility] Start: 04-05-2025 Care regimes management [facility] Start: 04-05-2025 Catheterization of vein [facility] Start: 04-05-2025 Insertion of cathete r into peripheral vein [facility] Start: 04-05-2025 Measuring intake and output [facility] Start: 04-05-2025 Notification of physician [facility] Start: 04-05-2025 Oxygen therapy [facility] Start: 04-05-2025 Providing care accor ding to standard [facility] Start: 04-05-2025 Provision of activit y privileges [facility] Start: 04-05-2025 Referral to occupati onal therapist [facility] Start: 04-05-2025 Referral to service [facility] Start: 04-05-2025 End: 04-05-2025 [facility] Start: 04-05-2025 Referral to estimator and drafter supervisor [facility] Start: 04-05-2025 Verification routine [facility] Start: 04-05-2025 Urinalysis complete panel - Urine [facility] Start: 04-05-2025 Admission procedure [facility] Start: 04-05-2025 Hospital admission, emergency, from emergency room, medical nature [facility] Start: 04-05-2025 End: 04-05-2025 [facility] Start: 04-05-2025 Patient referral to dietitian [facility] Start: 03-27-2025 24 Hour ECG [facility] Start: 03-15-2025 [facility] Start: 03-15-2025 Control nasal hemorr min anterior simple [facility] Start: 03-09-2025 Referral to service [facility] Start: 03-09-2025 Patient discharge [facility] Start: 03-08-2025 Application of elast ic bandage [facility] Start: 03-07-2025 Introduction of urin dakota catheter [facility] Start: 03-06-2025 Inhalation therapy procedure [facility] Start: 03-05-2025 [facility] Start: 03-05-2025 Care planning and pr oblem solving actions [facility] Start: 03-05-2025 Chest 1 View (Portable) Chest 1 View (Portable) [facility] Start: 03-05-2025 XR Chest Single view [facility] Start: 03-05-2025 Care planning and pr oblem solving actions [facility] Start: 03-04-2025 Following clinical p athway protocol [facility] Start: 03-04-2025 Assessment of risk o f venous thromboembolism [facility] Start: 03-04-2025 Care regimes management [facility] Start: 03-04-2025 Catheterization of vein [facility] Start: 03-04-2025 Insertion of cathete r into peripheral vein [facility] Start: 03-04-2025 Measuring intake and output [facility] Start: 03-04-2025 Notification of physician [facility] Start: 03-04-2025 Oxygen therapy [facility] Start: 03-04-2025 Providing care accor ding to standard [facility] Start: 03-04-2025 Provision of activit y privileges [facility] Start: 03-04-2025 Referral to die repairer forging [facility] Start: 03-04-2025 Referral to occupati onal therapist [facility] Start: 03-04-2025 Referral to service [facility] Start: 03-04-2025 End: 03-04-2025 [facility] Start: 03-04-2025 Hospital admission, emergency, from emergency room, medical nature [facility] Start: 03-04-2025 Verification routine [facility] Start: 03-04-2025 Admission procedure [facility] Start: 03-04-2025 Thyroid stimulating hormone measurement [facility] Start: 03-04-2025 [facility] Start: 03-04-2025 Patient referral to dietitian [facility] Start: 04-20-2024 Covid-19 Vaccine ( season) Covid-19 Vaccine ( season) [facility] Start: 04-20-2024 Influenza vaccination Influenza Vacc ine (#1) [facility] Start: 08-20-2023 Advance Directive Discussion Advance Directive Discussion [facility] Start: 06-22-2023 [facility] Start: 06-08-2023 Patient discharge [facility] Start: 06-08-2023 Anes open proc bones lower leg/ankle/foot nos ANESTH LOWER LEG BONE SURG [facility] Start: 06-08-2023 Osteot w/wo lngth shrt/corrj 1st metar INCISION OF METATARSAL [facility] Start: 06-08-2023 Prep site f/s/n/h/f/ g/m/d gt 1st 100 sq cm/1pct WOUND PREP F/N/HF/G [facility] Start: 06-08-2023 Sub grft f/s/n/h/f/g /m/d <100sq cm 1st 25 sq cm SKIN SUB GRAFT FACE/NK/HF/G [facility] Start: 06-08-2023 Fluoroscopic guidance O.R. Fluoro fo r C-Arm [facility] Start: 06-08-2023 Radiography of foot Foot 2 Views [facility] Start: 12-30-2022 [facility] Start: 12-30-2022 End: 12-30-2022 Blood culture [facility] Start: 12-30-2022 End: 12-30-2022 [facility] Start: 10-16-2022 CBC W Auto Different ial panel - Blood [facility] Start: 10-16-2022 Lactate dehydrogenas e measurement [facility] Start: 10-16-2022 End: 10-16-2022 [facility] Start: 07-18-2022 [facility] Work Phone: Start: 05-18-2022 [facility] Work Phone: Start: 05-11-2022 Patient referral [facility] Work Phone: Start: 04-28-2022 CORE NDL BX LNG/MED PERQ CORE NDL BX LNG/MED PERQ [facility] Work Phone: Start: 04-28-2022 Following clinical p athway protocol [facility] Work Phone: Start: 04-28-2022 Catheterization of vein [facility] Work Phone: Start: 04-28-2022 Oxygen therapy [facility] Work Phone: Start: 04-28-2022 Patient discharge [facility] Work Phone: Start: 04-28-2022 Vital signs measurements [facility] Work Phone: Start: 04-20-2022 Influenza vaccination INFLUENZA (#1) [facility] Start: 04-05-2022 End: 04-19-2022 Influenza virus A and B RNA and SARS-CoV-2 (COVID-19) N gene panel - Respiratory specimen by BRYAN with probe detection [facility] Work Phone: Comment on above: Expected: 04/05/2022 , Expires: 04/19/2022 Start: 08-20-2021 ADVANCE DIRECTIVE DISCUSSION ADVANCE DIRECTIVE DISCUSSION [facility] Start: 08-20-2021 DEPRESSION ASSESSMENT DEPRESSION ASS ESSMENT [facility] Start: 05-04-2021 COVID-19 VACCINE (3 - Booster for Moderna series) COVID-19 VACCINE (3 - Booster for Moderna series) [facility] Start: 01-27-2021 COVID-19 VACCINE (3 - Booster for Moderna series) COVID-19 VACCINE (3 - Booster for Moderna series) [facility] Start: 01-15-2020 RSV Vaccine (1 - 1-d ose 75+ series) RSV Vaccine (1 - 1-dose 75+ series) [facility] Start: 12-01-2018 DIABETES SCREEN DIABETES SCREEN [facility] Start: 12-01-2018 Diabetes Screening Diabetes Screenin g [facility] Start: 2010 Pneumococcal Vaccine : 65+ (1 of 1 - PCV) Pneumococcal Vaccine: 65+ (1 of 1 - PCV) [facility] Start: 2010 PNEUMOCOCCAL: 65+ (1 - PCV) PNEUMOCOCCAL: 65+ (1 - PCV) [facility] Start: 1995 SHINGRIX VACCINE (1 of 2) HEIN GRIX VACCINE (1 of 2) [facility] Start: 01-15-1964 Urine microalbumin profile [facility] Start: 1963 Anxiety Screening Anxiety Screening [facility] Start: 1963 Depression Screening Depression Scre ening [facility] Start: 1963 HEPATITIS C [facility] Start: 1957 Adult depression scr eening assessment [facility] 24 Hour ECG [facility] Alanine aminotransfe rase [Enzymatic activity/volume] in Serum or Plasma [facility] Albumin [Mass/volume ] in Serum or Plasma [facility] Alkaline phosphatase [Enzymatic activity/volume] in Serum or Plasma [facility] Anaerobic Culture Anaerobic Culture [facility] Work Phone: Anion gap in Serum o r Plasma [facility] Anion gap in Serum o r Plasma [facility] Anion gap in Serum o r Plasma [facility] Anion gap in Serum o r Plasma [facility] Anion gap measurement [facility] Aspartate aminotrans ferase [Enzymatic activity/volume] in Serum or Plasma [facility] Bacteria identified in Blood by Culture Blood Culture [facility] Bacteria identified in Body fluid by Culture [facility] Bacteria identified in Unspecified specimen by Anaerobe culture [facility] Work Phone: Bacteria identified in Unspecified specimen by Anaerobe culture [facility] Bacteria identified in Urine by Culture URINE CULTURE Microbiology Routine Burning with urination 04/05/2022 1:58 PM EDT [facility] Work Phone: Bacteria identified in Urine by Culture Urine Culture [facility] Bilirubin, total measurement [facility] BUN/Creatinine ratio [facility] BUN/Creatinine ratio [facility] BUN/Creatinine ratio [facility] BUN/Creatinine ratio [facility] BUN/Creatinine ratio [facility] Calcium [Mass/volume ] in Serum or Plasma [facility] Calcium [Mass/volume ] in Serum or Plasma [facility] Calcium [Mass/volume ] in Serum or Plasma [facility] Calcium [Mass/volume ] in Serum or Plasma [facility] Calcium [Mass/volume ] in Serum or Plasma [facility] Carbon dioxide, tota l [Moles/volume] in Central venous blood [facility] Carbon dioxide, tota l [Moles/volume] in Central venous blood [facility] Carbon dioxide, tota l [Moles/volume] in Central venous blood [facility] Carbon dioxide, tota l [Moles/volume] in Central venous blood [facility] Carbon dioxide, tota l [Moles/volume] in Serum or Plasma [facility] CBC W Auto Different ial panel - Blood [facility] Work Phone: CBC W Auto Different ial panel - Blood [facility] CBC W Auto Different ial panel - Blood [facility] Chloride [Moles/volu me] in Serum or Plasma [facility] Creatinine [Mass/vol ume] in Serum or Plasma [facility] Creatinine [Mass/vol ume] in Serum or Plasma [facility] Creatinine [Mass/vol ume] in Serum or Plasma [facility] Creatinine [Mass/vol ume] in Serum or Plasma [facility] Creatinine [Moles/vo lume] in Serum or Plasma [facility] CT Chest and Abdomen W contrast IV [facility] CT Chest W contrast IV [facility] Work Phone: CT Chest W contrast IV [facility] Cytology report of B horace fluid Cyto stain [facility] Erythrocyte mean corpuscular volume determination [facility] Erythrocyte mean corpuscular volume determination [facility] Erythrocyte mean corpuscular volume determination [facility] Erythrocyte mean corpuscular volume determination [facility] Glucose [Mass/volume ] in Serum or Plasma [facility] Glucose [Mass/volume ] in Serum or Plasma [facility] Glucose [Mass/volume ] in Serum or Plasma [facility] Glucose [Mass/volume ] in Serum or Plasma [facility] Glucose [Mass/volume ] in Serum or Plasma [facility] Hematocrit [Volume Fraction] of Blood [facility] Hematocrit [Volume Fraction] of Blood [facility] Hematocrit [Volume Fraction] of Blood [facility] Hematocrit [Volume Fraction] of Blood [facility] Hematocrit [Volume Fraction] of Blood [facility] Hemoglobin [Mass/vol ume] in Blood [facility] Hemoglobin [Mass/vol ume] in Blood [facility] Hemoglobin [Mass/vol ume] in Blood [facility] Hemoglobin [Mass/vol ume] in Blood [facility] Hemoglobin [Mass/vol ume] in Blood [facility] Hemoglobin A1c/Hemoglobin.total in Blood [facility] Lactate dehydrogenas e measurement [facility] Lactate dehydrogenas e measurement [facility] LDH [facility] Work Phone: Leukocytes [#/volume ] in Blood [facility] Leukocytes [#/volume ] in Blood [facility] Leukocytes [#/volume ] in Blood [facility] Leukocytes [#/volume ] in Blood [facility] Leukocytes [#/volume ] in Blood [facility] Magnesium measurement [facility] Magnesium measurement [facility] Mean corpuscular hemoglobin concentration determination [facility] Mean corpuscular hemoglobin concentration determination [facility] Mean corpuscular hemoglobin concentration determination [facility] Mean corpuscular hemoglobin concentration determination [facility] Mean corpuscular hemoglobin concentration determination [facility] Mean corpuscular hemoglobin determination [facility] Mean corpuscular hemoglobin determination [facility] Mean corpuscular hemoglobin determination [facility] Mean corpuscular hemoglobin determination [facility] Mean corpuscular hemoglobin determination [facility] Measurement of renal function [facility] Measurement of renal function [facility] Measurement of renal function [facility] Measurement of renal function [facility] Measurement of renal function [facility] Microbial culture, routine Wound Culture [facility] Work Phone: Microscopic observat ion [Identifier] in Unspecified specimen by Gram stain [facility] MR Brain WO and W co ntrast IV [facility] Work Phone: Natriuretic peptide. B prohormone N-Terminal [Mass/volume] in Serum or Plasma [facility] Natriuretic peptide. B prohormone N-Terminal [Mass/volume] in Serum or Plasma [facility] Natriuretic peptide. B prohormone N-Terminal [Mass/volume] in Serum or Plasma [facility] Neutrophil count [facility] Neutrophil count [facility] Neutrophil count [facility] Neutrophil count [facility] Neutrophil count [facility] Neutrophil percent differential count [facility] Neutrophil percent differential count [facility] Neutrophil percent differential count [facility] Neutrophil percent differential count [facility] Neutrophil percent differential count [facility] Patient Education [facility] Work Phone: Patient referral [facility] Work Phone: Platelets [#/volume] in Blood [facility] Platelets [#/volume] in Blood [facility] Platelets [#/volume] in Blood [facility] Platelets [#/volume] in Blood [facility] Platelets [#/volume] in Blood [facility] Positron emission tomography with computed tomography [facility] Work Phone: Potassium [Moles/vol ume] in Serum or Plasma [facility] Potassium measurement [facility] Potassium measurement [facility] Potassium measurement [facility] Potassium measurement [facility] Procedure [facility] PT Unspecified body region [facility] Radiation oncology A ND/OR radiotherapy [facility] Work Phone: Radiation oncology A ND/OR radiotherapy [facility] Red blood cell count [facility] Red blood cell count [facility] Red blood cell count [facility] Red blood cell count [facility] Red blood cell count [facility] Red cell distributio n width determination [facility] Red cell distributio n width determination [facility] Red cell distributio n width determination [facility] Red cell distributio n width determination [facility] Red cell distributio n width determination [facility] Serum chloride measurement [facility] Serum chloride measurement [facility] Serum chloride measurement [facility] Serum chloride measurement [facility] Sodium [Moles/volume ] in Serum or Plasma [facility] Sodium measurement [facility] Sodium measurement [facility] Sodium measurement [facility] Sodium measurement [facility] Total protein measurement [facility] Troponin T.cardiac [Mass/volume] in Serum or Plasma by High sensitivity method [facility] Troponin T.cardiac [Mass/volume] in Serum or Plasma by High sensitivity method [facility] Troponin T.cardiac [Mass/volume] in Serum or Plasma by High sensitivity method [facility] Troponin T.cardiac [Mass/volume] in Serum or Plasma by High sensitivity method [facility] Urea nitrogen [Mass/volume] in Serum or Plasma [facility] Urea nitrogen [Mass/volume] in Serum or Plasma [facility] Urea nitrogen [Mass/volume] in Serum or Plasma [facility] Urea nitrogen [Mass/volume] in Serum or Plasma [facility] Urea nitrogen [Mass/volume] in Serum or Plasma [facility] Immunizations Immunization Date Immunization Notes Care Provider [facility] 06-23-2024 influenza virus vaccine, unspecified formulation DR DAVID STERLING MD [facility] 02-26-2024 pneumococcal 20-shannon nt conjugate vaccine DR DAVID STERLING MD [facility] 06-01-2023 influenza virus vaccine, unspecified formulation DR DAVID STERLING MD [facility] 04-27-2022 influenza virus vaccine, unspecified formulation DR DAVID STERLING MD [facility] 12-02-2020 SARS-CoV-2 (COVID-19 ) mRNA-[address] DAVID STERLING MD [facility] Comment on above: Result Comment: 2024: [id number] 11-04-2020 SARS-CoV-2 (COVID-19 ) mRNA-[address] DAVID STERLING MD [facility] Comment on above: Result Comment: 2024: [id number] 08-03-2014 influenza virus vaccine, unspecified formulation [facility] [place] Work Phone: [facility] 06-20-2013 Influenza virus vaccine [facility] 06-20-2013 Pneumococcal Vaccine [facility] Work Phone: 06-20-2013 pneumococcal vaccine , unspecified formulation Dr. Tonio Fajardo Work Phone: [facility] Payers Date Payer Category Payer Self-pay [id number] 2025 Private Health Insurance [id number] 2022 Self-pay [id number] 2016 Self-pay [id number] 2009 Medicare [id number] 2009 Medicare [id number] 2009 [employer] ( and others) [id number] 2009 Unknown FOR LIFE [id number] 2009-[facility] [phone] [address] [place] [address] Indemnity [id number].[facility] 1945 Unknown [id number] 2.16.840.1.017205.3.579.2 .627 Unknown [id number] 2.16.840.1.303071.3.579.2 .462 Unknown [id number] 2.16.840.1.298432.3.579.2 .462 Unknown [id number] 2.16.840.1.346705.3.579.2 .462 Unknown [id number] 2.16.840.1.298823.3.579.2 .462 Unknown [id number] 2.16.840.1.069678.3.579.2 .462 Unknown [id number] 2.16.840.1.691847.3.579.2 .462 Unknown [id number] 2.16.840.1.671486.3.579.2 .462 Unknown [id number] 2.16.840.1.589075.3.579.2 .462 Unknown [id number] 2.16.840.1.907012.3.579.2 .462 Unknown [id number] 2.16.840.1.984849.3.579.2 .462 Unknown [id number] 2.16.840.1.688224.3.579.2 .462 Unknown [id number] 2.16.840.1.349099.3.579.2 .462 Unknown [id number] 2.16.840.1.976251.3.579.2 .462 Unknown [id number] 2.16.840.1.773239.3.579.2 .462 Unknown [id number] 2.16.840.1.476156.3.579.2 .462 Unknown [id number] 2.16.840.1.856401.3.579.2 .462 Unknown [id number] 2.16.840.1.101035.3.579.2 .462 Unknown [id number] 2.16840.1.110469.3.579.2 .462 Unknown [id number] 2.16.840.1.562430.3.579.2 .462 Unknown [id number] 2.16.840.1.903637.3.579.2 .462 Unknown [id number] 2.840.1.087828.3.579.2 .462 Unknown [id number] 2.840.1.028723.3.579.2 .462 Unknown [id number] 2.840.1.371095.3.579.2 .462 Unknown [id number] 2.840.1.869440.3.579.2 .462 Unknown [id number] 2.840.1.279955.3.579.2 .462 Unknown [id number] 2.840.1.867776.3.579.2 .462 Unknown [id number] 2.840.1.076594.3.579.2 .462 Unknown [id number] 2.840.1.882406.3.579.2 .462 Unknown [id number] 2.840.1.143954.3.579.2 .462 Unknown [id number] .840.1.654926.3.579.2 .462 Unknown [id number] 2.840.1.665789.3.579.2 .462 Unknown [id number] 2.840.1.395697.3.579.2 .462 Unknown [id number] 2.840.1.585167.3.579.2 .462 Unknown [id number] 2.840.1.566846.3.579.2 .462 Unknown [id number] 2.840.1.830119.3.579.2 .462 Unknown [id number] 2.16.840.1.646385.3.579.2 .462 Unknown [id number] 2.16.840.1.254508.3.579.2 .462 Unknown [id number] 2.16.840.1.005498.3.579.2 .462 Unknown [id number] 2.16.840.1.800406.3.579.2 .462 Unknown [id number] 2.16.840.1.919900.3.579.2 .462 Unknown [id number] 2.16.840.1.392673.3.579.2 .462 Unknown [id number] 2.16.840.1.386879.3.579.2 .462 Unknown [id number] 2.840.1.309419.3.579.2 .462 Unknown [id number] 2.840.1.953821.3.579.2 .462 Unknown [id number] 2.840.1.442516.3.579.2 .462 Unknown [id number] 2.840.1.266202.3.579.2 .462 Unknown [id number] 2.16840.1.175567.3.579.2 .462 Unknown [id number] 2.840.1.535305.3.579.2 .462 Unknown [id number] 2.16.840.1.808822.3.579.2 .462 Unknown [id number] 2.16.840.1.031180.3.579.2 .462 Unknown [id number] 2.16.840.1.865022.3.579.2 .462 Unknown [id number] 2.16.840.1.810575.3.579.2 .462 Unknown [id number] 2.16.840.1.276163.3.579.2 .462 Unknown [id number] 2.16.840.1.618279.3.579.2 .462 Unknown [id number] 2.16.840.1.243220.3.579.2 .462 Social History Date Type Detail Facility Start: 01-06-2021 End: 10-31-2023 Tobacco smoking status INIS Unknown if ever smoked [facility] Start: 08-27-2013 None [facility] Start: 03-18-2014 Spouse/ Signif icant Other [facility] Start: 06-20-2014 Non-smoker [facility] Start: 1945 Sex Assigned At Male [facility] Start: 04-05-2022 End: 05-04-2025 Tobacco smoking status NHIS Ex-smoker [facility] Work Phone: History of tobacco use Current smoker [facility] Work Phone: History of tobacco use Cigarette Smoker [facility] Work Phone: Start: 04-05-2022 Tobacco use and exposure Former smokeless tobacco user [facility] Work Phone: Start: 1945 Sex Assigned At Not on file [facility] Start: 03-26-2022 End: 04-05-2022 Exposure to SARS-CoV-2 (event) Not sure [facility] Work Phone: Start: 04-05-2022 History of Social function [facility] Start: 04-05-2022 Tobacco use panel [facility] Start: 10-30-2024 End: 04-13-2025 Sex Male (finding) [facility] Tobacco smoking status [facility] Medical Equipment Procedure Code Equipment Code [...] FDA Start: 06-08-2023 Bunionectomy FDA Start: 06-08-2023 ([id number]) ()[id number] 759(2 1)[id number] FDA Start: 04-09-2025 ([id number]) [id number] 766(2 1)[id number] FDA Start: 04-09-2025 ([id number]) [id number] 846(2 1)[id number] FDA Start: 04-09-2025 Goals Date Patient Goal Desired Activity /State Functional Status Date Assessment Result Facility 05-05-2025 Functional status Chair [facility] Work Phone: 04-28-2025 Functional status Ambulates;Bath room [facility] Work Phone: 04-27-2025 Functional status Ambulates;Bath room [facility] Work Phone: 04-23-2025 Functional status Ambulates;Chair [facility] Work Phone: 04-19-2025 Functional status Bedrest [facility] Work Phone: 04-12-2025 Functional status Chair [facility] Work Phone: 04-10-2025 Functional status Stand and pivot [facility] Work Phone: 03-09-2025 Functional status Chair [facility] Work Phone: Mental Status Date Assessment Result Facility 05-04-2025 Cognitive function Drowsy [facility] Work Phone: 04-28-2025 Cognitive function Voice/Name [facility] Work Phone: 04-27-2025 Cognitive function Voice/Name [facility] Work Phone: 04-23-2025 Cognitive function Voice/Name [facility] Work Phone: 04-19-2025 Cognitive function Awake;Alert;A ppropriate;Sh[facility]ano [facility] Work Phone: 04-18-2025 Cognitive function Voice/Name [facility] Work Phone: 04-17-2025 Cognitive function Appropriate;Cooperativ e [facility] Work Phone: 04-12-2025 Cognitive function Voice/Name [facility] Work Phone: 04-10-2025 Cognitive function Voice/Name [facility] Work Phone: 04-05-2025 Cognitive function Awake;Alert;A ppropriate;Follo [facility] Work Phone: 03-09-2025 Cognitive function Voice/Name [facility] Work Phone: 06-08-2023 Cognitive function Voice/Name [facility] Work Phone: 12-30-2022 Cognitive function Level Of Cons ciousness Awake;Alert;Appropriate;Follo ws Commands [facility] Work Phone: 04-28-2022 Cognitive function Voice/Name [facility] Work Phone: 04-14-2022 Cognitive function Level Of Cons ciousness Awake;Appropriate;Follows Commands;Drowsy [facility] Work Phone: Clinical Notes 04-05-2022 to 05-04-2025 Note Date & Type Note Facility 05-04-2025 Consult note Note Date/Time May 04, 2025 5:14pm [facility] Medical Records Department [address] [place] [address] Anesthesia Postop Eval II 05/04/25 1714 MR#: [id number] Acct: [id number] Name: PEDRO HILLMAN Rep #:[id number] : 1945 80 From: Joby Desir MD PCP: Dr. Tonio Fajardo, DO Status:REG SDC Y Race: C Location: [place] [address] Anesthesia Postop Eval I Sum Postop Eval Completion status Anesthesia document: Postop Eval 1 completed: Yes Anesthesia Postop Eval I Summary Anesthesia Postop Eval I Summary: Anesthesia Postop Eval I: Assessment Summary Airway patent Yes 05/04/25 16:35 [employer] Spontaneous unlabored Yes 05/04/25 16:35 [employer] respirations Mental status Asleep 05/04/25 16:35 [employer] nausea No 05/04/25 16:35 [employer] Vomiting No 05/04/25 16:35 [employer]OB Anesthesia Postop Eval I: Fluid Summary Crystalloid volume administer 100 05/04/25 16:35 [employer]TDOB (ml) Colloids volume administered ( ml) Blood Product volume administered (ml) Total IV fluid infused 100 05/04/25 16:35 [employer]OB Anesthesia Postop Eval I: Summary Notes Anesthesia Complication No 05/04/25 16:35 [employer]OB Anesthesia Complication Comment: Post-operative progress note Anesthesia: Postop Eval II Evaluation Mental status: Awake Pain Level: 0 nausea: No Vomiting: No 05/04/25 1714 <Electronically signed by Joby Desir MD > Date _ Joby Desir MD Cosigner Signature: Date CC: ~ Signed [facility] Work Phone: 1(261) 812-442009-15-2025 Consult note Author Peace Hicks [facility] Note Date/Time May 04, 2025 4:35pm [facility] Medical Records Department [address] [place] [address] Anesthesia Postop Eval I 05/04/251633 MR#: [id number] Acct: [id number] Name: PEDRO HILLMAN Rep #:[id number] : 1945 80 From: Peace Ovalle PCP: Dr. Tonio Fajardo, DO Status:REG SDC Y Race: C Location: [place] [address] Anesthesia: Postop Eval I Current Vital Signs [...] Peace Barreto RNA> Date _ Peace Hicks [employer] Cosigner Signature: Date CC: ~ Signed [facility] Work Phone: 1(270) 941-652809-15-2025 History and physical note Author Jkaob Goddard [facility] Note Date/Time May 04, 2025 4:09pm [facility] Medical Records Department [address] [place] [address] History & Physical Exam 05/04/25 1606 MR#: [id number] Acct: [id number] Name: PEDRO HILLMAN Rep #:[id number] : 1945 80 From: Jakob Goddard DO PCP: Dr. Tonio Fajardo, Status:[facility] Location: [place] [address] HPI - General General Date of Admission: 05/04/25 Date of Service: 05/04/25 Chief Complaint: Anemia HPI Narrative PEDRO HILLMAN, is a 80-year-old white male was seen in the emergency room at [facility] after sustaining a syncopal episode and TCU [...] cells. I was consulted for his anemia. [facility] Medical History Orthostatic hypotension Syncope Presence of cardiac pacemaker Peripheral arterial disease Other persistent atrial fibrillation New onset atrial flutter COVID Wears hearing aid in both ears Former smoker Coronary artery disease Peripheral vascular occlusive disease BPH (benign prostatic hyperplasia) Chronic kidney disease, stage 3 Atherosclerosis of coronary artery of [place] heart without angina pectoris Hyperlipidemia Lower extremity [...] platelet 04/05/25 05/03/25 History OXYGEN - Supplemental ([facility] 04/09/25 Unknown History INFORMATIONAL USE ONLY) ipratropium [...] Tonio Fajardo, ; Jakob Goddard, ~ Signed [facility] Work Phone: 1(433) 445-116009-15-2025 Consult note Author Joby Desir [facility] Note Date/Time May 04, 2025 2:46pm [facility] Medical Records Department [address] [place] [address] Pre-Anesthesia Evaluation 05/04/25 1446 MR#: [id number] Acct: [id number] Name: PEDRO HILLMAN Rep #:[id number] : 1945 80 From: Joby Desir MD PCP: Dr. Tonio Fajardo, DO Status:REG SDC Y Race: C Location: [place] [address] ASA Classification* ASA Classification ASA Classification: 3 [...] POSSIBLE BIOPSY Anesthesia History Anesthesia History - senior principal architect: Anesthesia History - senior principal architect Hx Hospitalization Yes 05/04/25 13:30 Any Problems [...] take am of surgery PONV PONV - senior principal architect: PONV - senior principal architect Female No 05/04/25 13:30 HX of Motion [...] 05/01/25 09:48 Respiratory Assessment Respiratory Assessment - senior principal architect: Respiratory Tract Infection Hx - senior principal architect Hx Respiratory Tract Infection No 05/04/25 13:30 STOP Sleep Apnea STOP Sleep Apnea - senior principal architect: STOP Sleep Apnea - senior principal architect Hx Hypertension No 05/04/25 13:30 Hx Sleep [...] Tobacco Use History Tobacco Use History - senior principal architect: Tobacco Use History - senior principal architect Tobacco Use Smoking Status Former smoker 05/04/25 13:30 Hx Tobacco Use Yes: stopped in aug 2012 05/04/25 13:30 Years Smoking Packs Smoked per Day Smoking Cessation Date was Yes - quit smoking within 15 05/04/25 13:30 within the last 15 years years Hx Smoking Cessation Date Hx Smoking Cessation No 05/04/25 13:30 Counseling Hematologic Medial History Hematologic Hx - senior principal architect: Hematologic 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 05/04/25 3786 <Electronically signed by Joby Desir MD > Date _ Joby Amos Signature: Date CC: ~ Signed [facility] Work Phone: 1(729) 434-801909-15-2025 Procedure [facility] 05-04-2025 Procedure [facility]09-15-2025 [facility]09-09-2025 [facility]09-04-2025 Progress note Author [facility] Note Date/Time April 23, 2025 3:14pm [facility] Medical Records Department [address] [place] [address] Progress Note - Hospitalist 04/23/25 1512 MR#: [id number] Acct: [id number] Name: PEDRO HILLMAN Rep #:[id number] : 1945 80 From: Tonio Mccallum DO PCP: Dr. Tonio Fajardo, Status:ADM IN Location: [place] [address]- Reason for Visit Chief Complaint: Syncopal episode [...] 04/20/25 14:15 RMA (Rec: 04/20/25 14:16 RMA [id number]) Nutrition Malnutrition Evidence of Yes Malnutrition Exists [...] will be given to the patient with [employer]. Nutritional services is participating inhis care Total clinical time spent by myself addressing the patient's medical issues, reviewing all of his data, and collaborating with the patient's care team: 35 minutes Charges/Coding Visit Charges Inpatient E&M: 26173 Subs Hosp L2 04/23/25 5180 <Electronically signed by Tonio Tereletsky DO> Cosigner Signature (if applicable): CC: ~ Signed [facility] Work Phone: 1(559) 957-234709-04-2025 [facility]09-04-2025 Hospital Discharge instructionsAdditional Instructions Monitor blood pressure closely, it may be necessary to cut back or discontinue midodrine and/or Florinef Date of Discharge: 04/23/25[facility] Work Phone: 1(877) 785-310209-03-2025 Progress note Author Tonio Mccallum [facility] Note Date/Time April 22, 2025 6:27pm [facility] Medical Records Department [address] [place] [address] Progress Note - Hospitalist 04/21/251910 MR#: [id number] Acct: [id number] Name: PEDRO HILLMAN Rep #:[id number] : 1945 80 From: Tonio Mccallum DO PCP: Dr. Tonio Fajardo, DO Status:ADM IN Location: [place] [id number]- 1 Reason for Visit Chief Complaint: Syncopal episode Subjective Subjective Patient was seen and examined today, patient felt lightheaded when he got up to move around with physical therapy, I elected to place him on midodrine today andreevaluate him tomorrow. I will continue his IV fluid and hopefully he will be able to go back to detention tomorrow. Patient stated this morning that he [...] 04/20/25 14:15 RMA (Rec: 04/20/25 14:16 RMA [id number]) Nutrition Malnutrition Evidence of Yes Malnutrition Exists [...] be given to the patient with med [email or web address]. Nutritional services is participating inhis care Total clinical time spent by myself addressing the patient's medical issues, reviewing all of his data, and collaborating with the patient's care team: 35 minutes Charges/Coding Visit Charges Inpatient E&M: 00709 Subs Hosp L2 04/22/25 8823 <Electronically signed by Tonio Mccallum DO> Cosigner Signature (if applicable): CC: ~ Signed [facility] Work Phone: 1(321) 303-360209-02-2025 Note. MICRO - Microbiology PROCEDURE: Fungal Culture [...] Locations *1: This test was performed at: [address], [facility]- , [facility] [id number] Progress note Author [facility]io [facility] Note Date/Time April 20, 2025 6:18pm [facility] Medical Records Department [address] [place] [address] Progress Note - Hospitalist 04/20/25 1811 MR#: [id number] Acct: [id number] Name: PEDRO HILLMAN Rep #:[id number] : 1945 80 From: Tonio Mccallum DO PCP: Dr. Tonio Fajardo DO Status:ADM IN Location: [facility] [id number]- 1 Reason for Visit Chief Complaint: Syncopal [...] 04/20/25 14:15 RMA (Rec: 04/20/25 14:16 RMA [id number]) Nutrition Malnutrition Evidence of Yes Malnutrition Exists [...] 35 minutes Charges/Coding Visit Charges Inpatient E&M: 40043 Subs Hosp L2 04/20/25 1818 <Electronically signed by Tonio Mccallum DO> Cosigner Signature (if applicable): CC: ~ Signed [facility] Work Phone: 1(762) 768-630809-01-2025 Note. MICRO - Microbiology PROCEDURE: Culture Body [...] Locations *1: This test was performed at: [facility], [address] [place] [address], [address]- , [facility]08-31-2025 [facility]08-31-2025 History and physical note Author Kwaku Narayanan [facility] Note Date/Time April 19, 2025 2: 22pm [facility] Medical Records Department [address] [place] [address] H&P Exam - Hospitalist 04/19/25 1031 MR#: [id number] Acct: [id number] Name: PEDRO HILLMAN Rep #:[id number] : 1945 80 From: Kwaku santiago DO PCP: Dr. Tonio Fajardo, DO Status:ADM FELICIANO Location: U [id number]- 1 HPI - General General Date of Admission: 04/19/25 Date of Service: 04/19/25 Chief Complaint: Syncopal episode HPI Narrative PEDRO HILLMAN, is a 80 M who presented to [facility] ED on 04/19/2025 from the TCU for [...] COPD exacerbation. He was then transferred to [place] for further management. There he had an [...] be admitted for further management. [facility] Medical History (Updated 04/19/25 @ 14:[address] Kwaku Narayanan, DO) Presence of cardiac pacemaker Peripheral arterial disease Other persistent atrial fibrillation New onset atrial flutter COVID Wears hearing aid in both ears Former smoker Coronary artery disease Peripheral vascular occlusive disease BPH (benign prostatic hyperplasia) Chronic kidney disease, stage 3 Atherosclerosis of coronary artery of [place] heart without angina pectoris Hyperlipidemia Lower extremity [...] hr (Mucinex) #20 tabs OXYGEN - Supplemental ([facility] 04/09/25 Unknown History INFORMATIONAL USE ONLY) [...] 75.0 H, Lymph % (Auto) 9.1 L, [place] % (Auto) 11.3 H, Eos % (Auto) [...] to x-ray 04/12/2025. Reading Location: [facility] Assessment & Plan Assessment/Plan (1) Syncope: (2) Orthostatic hypotension: PLAN: Plan Patient is an 80-year-old male who presented to [facility] ED on04/19/2025 from the TCU for syncope. [...] home oxygen on admit. Recent hospitalization at [place] from 04/12-04/17 for right sided hydropneumothorax, community-acquired ammonia and COPD exacerbation, see [facility] forfurther details. In short, had thoracentesis [...] Toprol 25 mg twice daily during recent [place] admission but given his presyncopal symptoms here [...] 78 minutes. Charges/Coding Visit Charges Inpatient E&M: 33997 Init Hosp L3 04/19/25 1422 <Electronically signed by Kwaku Narayanan DO> Cosigner Signature (if applicable): CC: Dr. Kwaku Narayanan, ; Dr. Tonio Fajardo DO~ Signed [facility] Work Phone: 1(405) 707-553308-31-2025 Discharge summary Author Casper Iniguez [facility] Note Date/Time April 19, 2025 10 :43am [facility] Medical Records Department [address] [place] [address] Emergency Department Summary 04/19/25 MR#: [id number] Acct: [id number] Name: PEDRO HILLMAN Rep #:[id number] : 1945 80 From: Casper Pyle PCP: Dr. Tonio Fajardo DO Status:REG ER Location: ED HPI History of Present Illness Chief Complaint: Syncope [facility] Medical History Presence of cardiac pacemaker Peripheral arterial disease Other persistent atrial fibrillation New onset atrial flutter COVID Wears hearing aid in both ears Former smoker Coronary artery disease Peripheral vascular occlusive disease BPH (benign prostatic hyperplasia) Chronic kidney disease, stage 3 Atherosclerosis of coronary artery of [place] heart without angina pectoris Hyperlipidemia Lower extremity [...] hr (Mucinex) #20 tabs OXYGEN - Supplemental ([facility] 04/09/25 Unknown History INFORMATIONAL USE ONLY) [...] Notes his pacemaker was placed recently at [facility]. Denies any pain over pacemaker site. REVIEW [...] records reviewed: Pacemaker was placed here with [facility] on 04/09/[address] Hsu Reviewed prior [...] - Noted patient safe to stay at [facility]. States he should be able to evaluate [...] to PCU This note was generated with [employer] dictation software. It may contain incorrectwords, spelling, [...] 75.0 H Lymph % (Auto) 9.1 L [place] % (Auto) 11.3 H Eos % (Auto) [...] to x-ray 04/12/2025. Reading Location: [facility] Discharge Plan Triage Chief Complaint: Syncope ED [...] Qty: 60 0RF (DME) OXYGEN - Supplemental ([facility] INFORMATIONAL USE ONLY) Gas See Rx [...] 3RF Primary Care Provider: Tonio Fajardo Referrals: Tonoi Fajardo DO [Primary Care Provider] - Print Language: Bolivian What to do if you have Problems For any increased pain, shortness of breath, bleeding, nausea or vomiting, chestpain, or any unexpected problems, contact your Primary Care Provider. Call [facility] ([phone]) or report to the closest Emergency Room. Call 911 if necessary. 04/19/25 1043 <Electronically signed by Casper Iniguez DO> Cosigner Signature (if applicable): CC: Dr. Tonio Fajardo DO ~ Signed [facility] Work Phone: 1(904) 199-464108-31-2025 Progress note Author Mukul Barbosa [facility] Note Date/Time April 19, 2025 10 :10am [facility] Medical Records Department [address] [place] [address] Progress Note - Pharmacy 04/19/25819 MR#: [id number] Acct: [id number] Name: PEDRO HILLMAN Rep #:[id number] : 1945 80 From: Mukul Barbosa PCP: [...] 22:00 04/19/25 08:07 Apixaban 2.5 Mg Tablet ([facility]) PO 2.5 mg BID FROY Administration Calamine/Phenol [...] by Valdez Olivo MD> CC: ~ Signed [facility] Work Phone: 1(545) 455-703408-31-2025 Radiology Diagnostic study [facility]08-30-2025 Note. MICRO - Microbiology PROCEDURE: Blood [...] Locations *1: This test was performed at: [facility], [address] [place] [address], [facility] , [facility]08-30-2025 Note. MICRO - Microbiology PROCEDURE: Blood Culture [...] Locations *1: This test was performed at: [facility], [address] [place] [address], [address]- , [facility] [id number] History and physical note Author Valdez [facility] Note Date/Time April 18, 2025 6: 56am [facility] Medical Records Department [address] [place] [address] History & Physical Exam 04/17/251940 MR#: [id number] Acct: [id number] Name: PEDRO HILLMAN Rep #:[id number] : 1945 80 From: Valdez Olivo MD PCP: Dr. Tonio Fajardo, DO Status:ADM IN Location: TCU TCU22-1 HPI - General General Date of Admission: 04/17/25 Date of Service: 04/18/25 Chief Complaint: Here for rehabilitation. HPI Narrative PEDRO HILLMAN, is a 80 Male who presents with followin04/12/2025 [facility] ED TCU resident shortness of breath, hypoxia, tachycardia. Diagnosed with pneumothorax, pneumonia, acute on chronic HFpEF, COPD exacerbation. Transfer to [facility] 2/ complicated pneumothorax. 04/13/2025 Admit [facility]. Ceftriaxone, Azithromycin, blood cultures, urinary antigens [...] prior to discharge home alone. [facility] Medical History (Updated 04/18/25 @ 00:01 by Background Daemon) Presence of cardiac pacemaker Peripheral arterial disease Other persistent atrial fibrillation New onset atrial flutter COVID Wears hearing aid in both ears Former smoker Coronary artery disease Peripheral vascular occlusive disease BPH (benign prostatic hyperplasia) Chronic kidney disease, stage 3 Atherosclerosis of coronary artery of [place] heart without angina pectoris Hyperlipidemia Lower extremity [...] hr (Mucinex) #20 tabs OXYGEN - Supplemental ([facility] 04/09/25 Unknown History INFORMATIONAL USE ONLY) [...] Fajardo, DO; Dr. Valdez Olivo MD~ Signed [facility] Work Phone: 1(307) 759-731708-29-2025 [facility]08-29-2025 Discharge summary Date of Service 04/17/2025 [...] nasal cannula presented as a transfer from [facility] for further evaluation of possible hydropneumothorax. Apparently, patient underwent pacemaker placement at [facility] last week , next day, patient was found to have pleural effusion and underwent thoracentesis and was admitted to rehab at [facility]. Patient found to have hypoxia [...] with cardiothoracic surgery, he was transferred to [facility]. Patient admitted to hospital service, started on [...] tablet)500 Milligram by mouth every day. insulin nnfufcxr25 unit(s) Subcutaneous daily at bedtime. metoprolol (metoprolol succinate 25 mg oral TABLET extended release)0.5 tab(s) by mouth two (2) times a day. Do not crush or chew (controlled release). multivitamin with minerals (Multi-Braden)1 tab by mouth every day. readovcoehb19 Milligram by mouth once a day. SITagliptin (Januvia 50 mg oral tablet)1 tab(s) by mouth once a day. tamsulosin (tamsulosin 0.4 mg oral capsule)1 cap by mouth once a day. umeclidinium-vilanterol (Anoro Ellipta 62.5 mcg-25 mcg/inh inhalation powder)1 puff(s) by inhalation once a day. Discontinued cefdinir (cefdinir 300 mg oral capsule)1 cap by mouth every 12 hours for 5 Days. qzinckCKYS30 Milligram by mouth two (2) times a day for 5 Days. Follow Up Follow Up with TONIO FAJARDO DO When:Within 1-2 days Where:[address] [place] [address]- Additional Information: Please call the office to [...] by JERO ROSARIO on 04/17/2025 01:18 PM [id number] Discharge instructions Patient Education 04/17/2025 13:56:28 [...] says it is okay. General instructions Take unoq-bfr-jffxgwp and prescription medicines only as told by [...] 08/06/2006 Document Revised: 07/19/2018 Document Reviewed: 07/15/2018 [employer] Patient Education 2020 [employer]. Follow Up Care 04/13/2025 00:27:18 With:Waqar [facility] - [phone] Address:Unknown When:1-2 days With:TONIO FAJARDO DO Address: [address] [place] [address]- When:1-2 days Comments:Please call the office to schedule a hospital follow up appointment. [facility] 08-29-2025 Note Discharge Instructions Thank you for allowing [place] to assist you with your healthcare needs. The following is importantdischarge information regarding your hospital visit. Your Care Team TONIO FAJARDO DO Your Diagnosis Atrial fibrillation BPH (benign prostatic hyperplasia) CAD in [place] artery s/p CABG Cardiac pacemaker in situ Chronic anemia CKD (chronic kidney disease) COPD with hypoxia Diabetes Diastolic heart failure Elevated troponin HLD (hyperlipidemia) HTN (hypertension) PAD (peripheral artery disease) Peripheral neuropathy Pneumonia Right Hydropneumothorax What to do next Follow Up Appointments Follow Up with Waqar [facility] [phone] When:Within 1-2 days Follow Up with TONIO FAJARDO DO When:Within 1-2 days Where:[address] [place] [address]- Additional Information: Please call the office to [...] says it is okay. General instructions Take pwyc-czz-xgcdtob and prescription medicines only as told by [...] 08/06/2006 Document Revised: 07/19/2018 Document Reviewed: 07/15/2018 [employer] Patient Education 2020 [employer] Additional Information VACCINATE! IT SAVES LIVES! Members of the community who have not yet received the COVID-19 vaccine and would like to receive it can visit one of [facility] vaccine clinics. There are many vaccine clinic locations within the [facility]. For locations and available times, please visit [email or web address] It is important to note that some COVID mobile vaccine clinics are held outdoors and may be canceled in rainy or stormy conditions. To learn more about pediatric vaccinations (ages 5-11), we invite you to visit the [facility] webpage. [email or web address].[email or web address].org/pages/6832-Jccwz-Yfcbcscjlqv-Lbnzufkcel-Jfidh-Omm stions.htmlTo learn more about the COVID-19 vaccine, we invite you to visit the CDC website for a list of frequently asked questions.https://www.cdc.gov/coronavirus/2019-ncov/vaccines/faq.html [facility] Patient Portal Access Instructions: Stay connected with your healthcare team and access your personal medical information anytime with the [facility] Patient Portal. Please follow the directions below to create your [facility] account: 1.Access the email account you provided upon registration to the hospital/physician office.2.Look for an invitation email from [facility].3.Open the email and access the invitation link: AcceptInvitation to [facility].4.Fill in the required johnson to create your account. To access your account, visit InVisM/[facility]. Click the blue button labeled Access Patient Portal and then log in with the username and password that you created in the steps above. You will be able to view your test results, lab results, a summary of your visits, upcoming appointments and more. There is also a convenient messaging option where you can send secure messages to your p [employer]ider. In addition, you will have the ability to download any documents or summaries to your computer and/or send the information securely to a physician. Remember that your healthcare information is confidential, so carefully consider who you will allowto register on the [facility] Patient Portal for access to your information. You can also access the [facility] Patient Portal on the [facility] katia. Simply click on Patient Portal and then log into your account. If you would like to receive a full copy of your medical records, please contact the [facility] Medical Records Department by calling [phone], Sunday through Sunday between 8 a.m. and [...] Call your local pharmacy or go to http://[employer]/[email or web address] to find one close to you.3.Make use of household items: Use cat litter or old coffee grounds to dispose medications if other options arenot available. Mix your drugs with these household products, seal them in an airtight container andthrow it into the garbage. Call [facility]: [phone] to be sure your drugs can be [...] aware that I should contact my doctor. Patient/Medical Staffing Coordinator Signature: Date/Time: Relationship to Patient: Witness Name/Signature: Date/Time: [facility] [id number] Note Discharge Instructions Thank you for allowing [facility] to assist you with your healthcare needs. The following is importantdischarge information regarding your hospital visit. Your Care Team TONIO FAJARDO DO Your Diagnosis Atrial fibrillation BPH (benign prostatic hyperplasia) CAD in [place] artery s/p CABG Cardiac pacemaker in situ Chronic anemia CKD (chronic kidney disease) COPD with hypoxia Diabetes Diastolic heart failure Elevated troponin HLD (hyperlipidemia) HTN (hypertension) PAD (peripheral artery disease) Peripheral neuropathy Pneumonia Right Hydropneumothorax What to do next Follow Up Appointments Follow Up with [facility] - [phone] When:Within 1-2 days Follow Up with TONIO FAJARDO DO When:Within 1-2 days Where:[address] [place] [address]- Additional Information: Please call the office to [...] to receive it can visit one of [facility] vaccine clinics. There are many vaccine clinic locations within the [facility]. For locations and available times, please visit [email or web address].[place].gov/. It is important to note that some COVID mobile vaccine clinics are held outdoors and may be canceled in rainy or stormy conditions. To learn more about pediatric vaccinations (ages 5-11), we invite you to visit the [facility] webpage. https://www.[facility].org/pages/5383-Jtqkq-Dfbzibiswot-Ejpmiozddg-Utlsz-Pbf stions.htmlTo learn more about the COVID-19 vaccine, we invite you to visit the CDC website for a list of frequently asked questions.https://www.cdc.gov/coronavirus/2019-ncov/vaccines/faq.html [facility] Patient Portal Access Instructions: Stay connected with your healthcare team and access your personal medical information anytime with the [place] [employer] Patient Portal. Please follow the directions below to create your [place] [employer] account: 1.Access the email account you provided upon registration to the hospital/physician office.2.Look for an invitation email from [facility].3.Open the email and access the invitation link: AcceptInvitation to [facility] [facility].4.Fill in the required johnson to create your account. To access your account, visit [email or web address]. Click the blue button labeled Access Patient [...] who you will allowto register on the [place] [employer] Patient Portal for access to your information. You can also access the [place] [facility] [facility]vertising[facility] Patient Portal on the [place] [facility] katia. Simply click on Patient Portal and then log into your account. If you would like to receive a full copy of your medical records, please contact the [facility] Medical Records Department by calling [phone], Sunday through Sunday between 8 a.m. and [...] Call your local pharmacy or go to http://bit.ly/5O6Bc8w to find one close to you.3.Make use of household items: Use cat litter or old coffee grounds to dispose medications if other options arenot available. Mix your drugs with these household products, seal them in an airtight container andthrow it into the garbage. Call [facility]: [phone] to be sure your drugs can be [...] aware that I should contact my doctor. Patient/Medical Staffing Coordinator Signature: Date/Time: Relationship to Patient: Witness Name/Signature: Date/Time: [facility] HospitalYreaacby31-28-2558 Discharge summary Date of Service 04/17/2025 Discharge [...] nasal cannula presented as a transfer from [facility] for further evaluation of possible hydropneumothorax. Apparently, patient underwent pacemaker placement at [facility] last week , next day, patient was found to have pleural effusion and underwent thoracentesis and was admitted to rehab at [facility]. Patient found to have hypoxia [...] with cardiothoracic surgery, he was transferred to [facility]. Patient admitted to hospital service, started on [...] minerals (Multi-Braden)1 tab by mouth every day. [id number] Milligram by mouth once a day. SITagliptin (Januvia 50 mg oral tablet)1 tab(s) by mouth once a day. tamsulosin (tamsulosin 0.4 mg oral capsule)1 cap by mouth once a day. umeclidinium-vilanterol (Anoro Ellipta 62.5 mcg-25 mcg/inh inhalation powder)1 puff(s) by inhalation once a day. Discontinued cefdinir (cefdinir 300 mg oral capsule)1 cap by mouth every 12 hours for 5 Days. prxtevAHZI73 Milligram by mouth two (2) times a day for 5 Days. Follow Up Follow Up with TONIO FAJARDO DO When:Within 1-2 days Where:[address] [place] [address]- Additional Information: Please call the office to [...] by JERO ROSARIO on 04/17/2025 01:18 PM [facility] HospitalHhsfwrii02-48-2668 Note* Exam Date Time Procedure Performing Provider Status 04/17/25 7:03 AM XR Chest 1 View KRISTEN MAKI MD; Aut h (Verified) [id number] ORIGINAL EXAMINATION: ONE XRAY VIEW OF THE [...] 04/17/2025 8:12:37 AM Ordering Provider: GLORIA DAVIS [facility] [id number] NoteORIGINAL PROCEDURE: ULTRASOUND GUIDED THORACENTESIS CLINICAL STATEMENT: [...] Sign Date: 04/16/2025 5:19:34 PM Ordering Provider: [facility] [id number] Note Date of Service 04/16/2025 Chief Complaint [...] nasal cannula presented as a transfer from [facility] for further evaluation of possible hydropneumothorax. Apparently, patient underwent pacemaker placement at [facility] last week , next day, patient was found to have pleural effusion and underwent thoracentesis and was admitted to rehab at [facility]. Patient found to have hypoxia [...] with cardiothoracic surgery, he was transferred to [facility]. Patient admitted to hospital service, started on [...] fibrillation BPH (benign prostatic hyperplasia) CAD in [place] artery s/p CABG Cardiac pacemaker in situ [...] GLORIA DAVIS MD on 04/16/2025 01:33 PM [facility] HospitalRasjupds58-73-5210 Pulmonary Consult note Date of Service 04/16/2025 [...] The patient underwent a thoracentesis here at [facility] showing undetectable protein and a slightly [...] fibrillation BPH (benign prostatic hyperplasia) CAD in [place] artery s/p CABG Cardiac pacemaker in situ [...] fibrillation BPH (benign prostatic hyperplasia) CAD in [place] artery Cardiac pacemaker in situ Chronic anemia [...] ABBI CARMEN MD on 04/16/2025 01:14 PM [facility] [id number] Note. MICRO - Microbiology PROCEDURE: Acid Fast Bacilli Culture w Stain if Ind [*1] SOURCE: Thoracentesis Fluid BODY SITE: COLLECTED DATE/TIME: 04/15/2025 08:52 EDT RECEIVED DATE/TIME: 04/15/2025 14:18 EDT START DATE/TIME: 04/15/2025 14:18 EDT FREE TEXT SOURCE: STAINS AFS [] Verified Date/Time/Personnel: 04/16/2025 12:33 EDT Acid Fast Smear from Concentrated Specimen: Negative Performing Locations *1: This test was performed at: [facility], [address] [place] [address], [id number] , [facility]08-28-2025 Nurse Progress note I was ambulating the [...] by [place] on 04/16/2025 10:23 AM [facility] [id number] Note Date of Service 04/15/2025 Chief Complaint [...] nasal cannula presented as a transfer from [facility] for further evaluation of possible hydropneumothorax. Apparently, patient underwent pacemaker placement at [facility] last week , next day, patient was found to have pleural effusion and underwent thoracentesis and was admitted to rehab at [facility]. Patient found to have hypoxia [...] with cardiothoracic surgery, he was transferred to [facility]. Patient admitted to hospital service, started on [...] fibrillation BPH (benign prostatic hyperplasia) CAD in [place] artery s/p CABG Cardiac pacemaker in situ [...] GLORIA DAVIS MD on 04/15/2025 04:24 PM [facility] HospitalXeycaafl72-35-1042 Note* Exam Date Time Procedure Performing Provider Status 04/15/25 11:36 AM XR Chest 1 View SHAHBAZ FOLEY MD; Aut h (Verified) [id number] ORIGINAL EXAMINATION: ONE XRAY VIEW OF THE [...] 04/15/2025 11:43:46 AM Ordering Provider: OLAMIDE GONZALEZ [facility] HospitalLlvbeinm00-76-2637 Note* Exam Date Time Procedure Performing Provider Status 04/15/25 11:35 AM US Thoracentesis Right NUNOGIBSON; Auth (Verified) [id number] ORIGINAL PROCEDURE: ULTRASOUND GUIDED THORACENTESIS CLINICAL STATEMENT: [...] Date: 04/16/2025 5:19:34 PM Ordering Provider: [facility]08-27-2025 Note US Procedure Record Summary Primary Physician: OLAMIDE GONZALEZ PA-C Finalized Date/Time: 04/15/25 11:32:18 Pt. Name: PEDRO HILLMAN D.O.B./Sex: 1945 Male Med Rec #: [id number] Physician: DAVID STERLING MD Financial #: [id number] Pt. Type: I Room/Bed: [facility]/ Admit/Disch: 04/13/25 05:27:00 - Institution: Allergies identified in patient's electronic medical record at time of printing on 04/15/25 Entry 1 Substance ibuprofen Reaction Type Allergy Last Modified By: KHURRAM Merchant 04/13/25 06:04:52 Case Attendance- US Entry 1 Entry 2 Case Attendee OLAMIDE GONZALEZ Lauren M PA-C Role Performed Primary Surgeon Detective [place] Details Time In 04/15/25 11:08:00 04/15/25 11:08:00 [...] Data- US Entry 1 Case Information Room [facility] Receiving Case Level IR Level 2 Wound [...] Removal Method N/A Last Modified By: Michaela Barnadr 04/15/25 11:15:27 Patient Positioning- US Entry 1 [...] instrumentation, sponges, or sharps). Outcomes Met? Yes Radio Communication Coordinator OLAMIDE GONZALEZ Completing PA-C Procedure Plan Last Modified By: Michaela Barnard 04/15/25 11:16:00 Radiology Lines and Procedures- US Entry 1 Radiology Sedation Case Times Sedation Total Time 0 Radiology - Fluid/Drainage Fluid Amount mL: 1000 ml Fluid Description she[facility]on RAD - US [place], Guidewires, Cath.... Catheters OneStep Catheter 5 Fr [...] Signatures Signed By: Michaela Barnard 04/15/25 11:32 [facility] HospitalSrcvjkcj48-39-2399 NoteBody Fluid Path ReviewNegative for malignant cells. [...] sided permanent pacemaker on , 04/09/2025 at [facility]. The following day, he had a chest x-ray completed revealing a right pleural effusion and underwent a thoracentesis(amount of volume removed unknown). He was discharged to [facility] same day. While at rehab facility, he was noted to be hypoxic and tachycardic and a chest x-ray was completed showing aright pneumothorax. He was taken to [facility] emergency room where he was further evaluated [...] on 100% nonrebreather mask, and transferred to [facility] for further evaluation. Cardiothoracic surgery has [...] Hydropneumothorax CT of the chest completed at [facility] on 04/12/2025 showing right loculated hydropneumothorax [...] Pneumonia CT of the chest completed at [facility] on 04/12/2025 showed apical and some [...] anemia 13. HTN (hypertension) 14. CAD in [place] artery s/p CABG 15. Diastolic heart failure 16. COPD with hypoxia 48 minutes of independent KATIA time spent obtaining past medical history from EMR, conducting [facility] to request CT of the chest imaging, completing cnek-kc-tfjc visit with patient at bedside, obtaining physical exam, and dictating details of today's consultation. Problem List/Past Medical History Ongoing Atrial fibrillation BPH (benign prostatic hyperplasia) CAD in [place] artery Cardiac pacemaker in situ Chronic anemia [...] by COLLEEN DOE on 04/13/2025 03:08 PM [facility] [id number] Note* Exam Date Time Procedure Performing Provider Status 04/15/25 6:48 AM XR Chest 1 View LEVI MARCIAL MD; Auth (Verified) [id number] ORIGINAL EXAMINATION: ONE XRAY VIEW OF THE [...] 04/15/2025 7:22:03 AM Ordering Provider: GLORIA DAVIS [facility] HospitalDcceebdp90-28-2313 Note* Exam Date Time Procedure Performing Provider Status 04/14/25 9:03 PM Electrocardiogram - EKG - CV GOP BRAYAN JARAMILLO MD; Auth (Verified) ECG Final Report SINUS TACHYCARDIA VENTRICULAR PREMATURE COMPLEX RIGHT BUNDLE BRANCH BLOCK Electronic Signature: BRAYAN FRANCO MD 04/15/2025 22:51:41 [facility] HospitalTyhcbhiu81-08-1902 Note Date of Service 04/14/2025 Chief Complaint [...] fibrillation BPH (benign prostatic hyperplasia) CAD in [place] artery s/p CABG Cardiac pacemaker in situ [...] as of now. Discussed with cardiothoracic surgery [employer]. Will give one-time dose of IV Lasix [...] GLORIA DAVIS MD on 04/14/2025 04:44 PM [facility] [id number] Note. MICRO - Microbiology PROCEDURE: Legionella Urine [...] Locations *1: This test was performed at: [facility], [address] [place] [address], [facility] , [facility]08-26-2025 Note. MICRO - Microbiology PROCEDURE: Streptococcus Pneumoniae [...] Locations *1: This test was performed at: [facility], [address] [place] [address], [facility] , [facility]08-26-2025 Note* Exam Date Time Procedure Performing Provider Status 04/14/25 6:55 AM XR Chest 1 View LEVI MARCIAL MD; Auth (Verified) [id number] ORIGINAL EXAMINATION: ONE XRAY VIEW OF THE [...] 04/14/2025 7:00:29 AM Ordering Provider: COLLEEN DOE [facility] HospitalKybergyd56-38-0768 History and physical note [facility] Hospitalist History and Physical Date of Admission: patient is being admitted on April 13, 2025 Chief complaint: pneumothorax History of present illness: History was taken from talking with the emergency room physician at [facility] as well as talking with the [...] The patient was admitted to rehab at [facility]. Yesterday the patient had episodes of [...] CT chest without contrast showed right loculated [place] pneumothorax of estimated 15% of the right thoracic volume occupied by air. Patches of dense consolidating right pneumonia. Sizable peripheral blebs and honeycombing in the left mid and base. Prior to transfer they did discuss the case with cardiothoracic surgery licensed mental health professional and the patient wasgiven vancomycin and [...] Vitals Signs(Last 24 hrs)__Last Charted Minimum Maximum UOB900(APR 13 05:28)135(APR 13 05:28)135(APR 13 05:28) DBP78(APR [...] HPI. Assessment and plan: Patient presents from [facility] on April 13, 2025 due to [...] DAVID STERLING MD on 04/13/2025 05:49 AM [facility] [id number] Respiratory therapy Hospital Progress note Respiratory Therapy [...] by Summer Hankins on 04/13/2025 04:09 PM [facility] HospitalHofmwtaj67-44-1310 Cardiothoracic surgery Consult note Date of Service [...] sided permanent pacemaker on , 04/09/2025 at [facility]. The following day, he had a chest x-ray completed revealing a right pleural effusion and underwent a thoracentesis(amount of volume removed unknown). He was discharged to [facility] same day. While at rehab facility, he was noted to be hypoxic and tachycardic and a chest x-ray was completed showing aright pneumothorax. He was taken to [facility] emergency room where he was further evaluated [...] on 100% nonrebreather mask, and transferred to [facility] for further evaluation. Cardiothoracic surgery has [...] Hydropneumothorax CT of the chest completed at [facility] on 04/12/2025 showing right loculated hydropneumothorax [...] Pneumonia CT of the chest completed at [facility] on 04/12/2025 showed apical and some [...] anemia 13. HTN (hypertension) 14. CAD in [place] artery s/p CABG 15. Diastolic heart failure 16. COPD with hypoxia 48 minutes of independent KATIA time spent obtaining past medical history from EMR, conducting [facility] to request CT of the chest imaging, completing vbfm-dn-cjsx visit with patient at bedside, obtaining physical exam, and dictating details of today's consultation. Problem List/Past Medical History Ongoing Atrial fibrillation BPH (benign prostatic hyperplasia) CAD in [place] artery Cardiac pacemaker in situ Chronic anemia [...] by COLLEEN DOE on 04/13/2025 03:08 PM [facility] HospitalHbgzkgkf27-51-3121 Note* Exam Date Time Procedure Performing Provider Status 04/13/25 2:42 PM XR Chest 1 View MÓNICA ZALDIVAR [facility] (Verified) [id number] ORIGINAL EXAMINATION: ONE XRAY VIEW OF THE [...] 04/13/2025 2:58:50 PM Ordering Provider: COLLEEN DOE [facility] HospitalNuwqjwsr27-93-9663 Evaluation + Plan noteExtracted from: Title:Clinical Document Author:DAVID STERLING MD Date:04/13/25 [facility] Hospitalist History and Physical Date of Admission: patient is being admitted on April 13, 2025 Chief complaint: pneumothorax History of present illness: History was taken from talking with the emergency room physician at [facility] as well as talking with the [...] The patient was admitted to rehab at [facility]. Yesterday the patient had episodes of [...] CT chest without contrast showed right loculated [place] pneumothorax of estimated 15% of the right thoracic volume occupied by air. Patches of dense consolidating right pneumonia. Sizable peripheral blebs and honeycombing in the left mid and base. Prior to transfer they did discuss the case with cardiothoracic surgery licensed mental health professional and the patient was given vancomycin [...] Vitals Signs(Last 24 hrs)__Last Charted Minimum Maximum VWW173(APR 13 05:28)135(APR 13:)135(APR 13:) DBP78(APR 13:)78(APR 13:)78(APR 13:) Physical examination: HEENT: No Pallor, No Icterus Cardiac: tachycardia, No murmur Lungs: diffuse crackles in respiratory stress Abdomen: Soft Non tender Musculoskeletal: No joint pains or swelling Extremities: No edema, good pulses Neurological: Alert, no deficits Skin: No rash, no nodules Labs: as mentioned in the HPI. Assessment and plan: Patient presents from [facility] on April 13, 2025 due to [...] care with patient and family at bedside. [facility] 08-25-2025 Note Reason for Consultation Admission [...] Other: Medihoney/adaptic/foam to right knee. Betadine to pgvua3mo, and 4th toes. Eucerin cream to BLE. Education Individuals Taught: Patient Learning Readiness: Willing to learn Barriers to Learning: Acuity of illness Teaching Method: Explanation Digitally Signed by Carol Galvin RN on 04/13/2025 01:26 PM [facility] HospitalWfdaeppm19-00-7957 [facility]08-25-2025 History and physical note [facility] Hospitalist History and Physical Date of Admission: patient is being admitted on April 13, 2025 Chief complaint: pneumothorax History of present illness: History was taken from talking with the emergency room physician at [facility] as well as talking with the [...] The patient was admitted to rehab at [facility]. Yesterday the patient had episodes of [...] CT chest without contrast showed right loculated [place] pneumothorax of estimated 15% of the right thoracic volume occupied by air. Patches of dense consolidating right pneumonia. Sizable peripheral blebs and honeycombing in the left mid and base. Prior to transfer they did discuss the case with cardiothoracic surgery licensed mental health professional and the patient wasgiven vancomycin and [...] Vitals Signs(Last 24 hrs)__Last Charted Minimum Maximum HCS203(APR 13:28)135(APR 13:)135(APR 13:) DBP78(APR 13:)78(APR 13:)78(APR 13:) Physical examination: HEENT: No Pallor, No Icterus Cardiac: tachycardia, No murmur Lungs: diffuse crackles in respiratory stress Abdomen: Soft Non tender Musculoskeletal: No joint pains or swelling Extremities: No edema, good pulses Neurological: Alert, no deficits Skin: No rash, no nodules Labs: as mentioned in the HPI. Assessment and plan: Patient presents from [facility] on April 13, 2025 due to [...] DAVID STERLING MD on 04/13/2025 05:49 AM [facility] HospitalDopbpjqp92-89-8534 History and physical note [facility] Hospitalist History and Physical Date of Admission: patient is being admitted on April 13, 2025 Chief complaint: pneumothorax History of present illness: History was taken from talking with the emergency room physician at [facility] as well as talking with the [...] The patient was admitted to rehab at [facility]. Yesterday the patient had episodes of [...] CT chest without contrast showed right loculated [place] pneumothorax of estimated 15% of the right thoracic volume occupied by air. Patches of dense consolidating right pneumonia. Sizable peripheral blebs and honeycombing in the left mid and base. Prior to transfer they did discuss the case with cardiothoracic surgery licensed mental health professional and the patient wasgiven vancomycin and [...] Vitals Signs(Last 24 hrs)__Last Charted Minimum Maximum SWE254(APR 13 05:28)135(APR 13:)135(APR 13:) DBP78(APR 13:)78(APR 13:)78(APR 13:) Physical examination: HEENT: No Pallor, No Icterus Cardiac: tachycardia, No murmur Lungs: diffuse crackles in respiratory stress Abdomen: Soft Non tender Musculoskeletal: No joint pains or swelling Extremities: No edema, good pulses Neurological: Alert, no deficits Skin: No rash, no nodules Labs: as mentioned in the HPI. Assessment and plan: Patient presents from [facility] on April 13, 2025 due to [...] DAVID STERLING MD on 04/13/2025 05:49 AM [facility] [id number] Discharge summary Author Daniel Brownlee [facility] Note Date/Time April 13, 2025 12 :09am [facility] Medical Records Department [address] [place] [address] Emergency Department Summary 04/12/25 MR#: [id number] Acct: [id number] Name: PEDRO HILLMAN Rep #:[id number] : 1945 80 From: Daniel Brownlee DO [...] himself at this point in time. [facility] Medical History Presence of cardiac pacemaker Peripheral arterial disease Other persistent atrial fibrillation New onset atrial flutter COVID Wears hearing aid in both ears Former smoker Coronary artery disease Peripheral vascular occlusive disease BPH (benign prostatic hyperplasia) Chronic kidney disease, stage 3 Atherosclerosis of coronary artery of [place] heart without angina pectoris Hyperlipidemia Lower extremity [...] s 04/08/25 Unknown Rx OXYGEN - Supplemental ([facility] 04/09/25 Unknown History INFORMATIONAL USE ONLY) [...] following commands knew that he was at [facility] the year is 2024 Skin: Warm, [...] with a rate of 111 bpm with CO interval of 86. Patient's proBNP elevated 7022. [...] transfer giventhe complex pneumothorax. Discussed case with [facility] physician Dr. Sterling who accept patient [...] 92.5 H Lymph % (Auto) 2.5 L [place] % (Auto) 4.2 Eos % (Auto) 0.0 [...] left mid zone and base. Reading [facility] Discharge Plan Triage Chief Complaint: Shortness [...] Qty: 60 0RF (DME) OXYGEN - Supplemental ([facility] INFORMATIONAL USE ONLY) Gas See Rx Instructions .ROUTE Patient Comments: 2 lpm at rest, 3 lpm on exertion, 2 lpm at HS DME company: [email or web address] letitia DAO Rx Instructions: As directed metoprolol succinate 25 mg tablet extended release 24 hr 12.5 mg PO BID Qty: 90 3RF Primary Care Provider: Tonio Fajardo Referrals: Tonio Fajardo DO [Primary Care Provider] - Print Language: Bolivian Disposition Disposition: DC/Tx to Another Type of HCF What to do if you have Problems For any increased pain, shortness of breath, bleeding, nausea or vomiting, chestpain, or any unexpected problems, contact your Primary Care Provider. Call [facility] ([phone]) or report to the closest Emergency Room. Call 911 if necessary. 04/13/25 0009 <Electronically signed by Daniel Brownlee DO> Cosigner Signature (if applicable): CC: Dr. Tonio Fajardo DO ~ Signed [facility] Work Phone: 1(438) 521-512808-24-2025 Radiology Diagnostic study [facility]08-24-2025 Radiology Diagnostic study [facility]08-22-2025 History and physical note Author Valdez Olivo [facility] Note Date/Time April 10, 2025 8: 47pm [facility] Medical Records Department [address] [place], [place] [address] [address] History & Physical Exam 04/10/252025 MR#: [id number] Acct: [id number] Name: PEDRO HILLMAN Rep #:[id number] : 1945 80 From: Valdez Olivo MD PCP: Dr. Tonio Fajardo DO Status:ADM IN Location: [facility] TCU02-1 HPI - General General Date of Admission: 04/10/25 Date of Service: 04/10/25 Chief Complaint: Here for rehabilitation. HPI Narrative PEDRO HILLMAN, is a 80 Male who presents with followin04/05/2025 [facility] ED Hypotension. Worsening productive cough, copd, [...] given. Insulin/glucose for hyperkalemia 5.8. 04/05/2025 Admit [facility]. Lasix 40mg iv bid, Magnesium, albumin [...] prior to discharge home alone. [facility] Medical History (Updated 04/10/25 @ 20:[address] Valdez Olivo MD) Presence of cardiac pacemaker Peripheral arterial disease Other persistent atrial fibrillation New onset atrial flutter COVID Wears hearing aid in both ears Former smoker Coronary artery disease Peripheral vascular occlusive disease BPH (benign prostatic hyperplasia) Chronic kidney disease, stage 3 Atherosclerosis of coronary artery of [place] heart without angina pectoris Hyperlipidemia Lower extremity [...] s 04/08/25 Unknown Rx OXYGEN - Supplemental ([facility] 04/09/25 Unknown History INFORMATIONAL USE ONLY) [...] Fajardo DO; Dr. Valdez Olivo MD~ Signed [facility] Work Phone: 1(293) 457-941608-22-2025 [facility]08-22-2025 Discharge summary Author Nicola Roman [facility] Note Date/Time April 10, 2025 4: 10pm [facility] Medical Records Department [address] [place] [address] [facility] Care MR#: [id number] Acct: [id number] Name: PEDRO HILLMAN Rep #:[id number] : 1945 80 From: Nicola Roman MD PCP: Dr. Tonio Fajardo, DO Status:ADM IN Certification of patient admission REQUIRED AT TIME OF ADMISSION. I CERTIFY THAT POST-HOSPITAL ECF SERVICES ARE REQUIRED TO BE GIVEN ON AN IN-PATIENT BASIS BECAUSE OF THE ABOVE NAMED PATIENT'S NEED FOR FDC CARE ON A CONTINUING BASIS FOR THE [...] treated with radiation therapy currently followed by [facility] oncology and will start 8. Chronic [...] 2RF No Action (DME) OXYGEN - Supplemental ([facility] INFORMATIONAL USE ONLY) Gas See Rx Instructions .ROUTE Patient Comments: 2 lpm at rest, 3 lpm on exertion, 2 lpm at HS DME company: [employer] CM Rx Instructions: As directed Referrals / Follow Up: Craol Sousa [Registered Nurse] - 04/21/25 10:00 am [...] Fajardo DO; Dr. Deric Lantigua MD ~ [facility] Work Phone: 1(749) 312-242008-22-2025 Discharge summary Author Nicola Franknora [facility] Note Date/Time April 10, 2025 4: 23pm [facility] Medical Records Department [address] [place] [address] Discharge Summary 04/10/25 1610 MR#: [id number] Acct: [id number] Name: PEDRO HILLMAN Rep #:[id number] : 1945 80 From: Nicola Roman MD PCP: Dr. Tonio Fajardo DO Status:ADM IN Location: [facility] [id number]- 1 Providers Date of Admission: 04/05/25 Date of Discharge: 04/10/25 Primary Care Physician: Dr. Tonio Fajardo DO Consultations 04/05/25 20:36 Consult: Nephrology Routine Consulting Provider: Davon Saravia Reason for Consult: CKD; stage IV with Hyperkalemia and AE CHF. 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 Chronic [...] BID #10 tabs 04/08/25 OXYGEN - Supplemental ([facility] INFORMATIONAL USE ONLY) 04/09/25 Physical Exam [...] (Auto) 91.6 H, Lymph % (Auto) 1.9L, [place] % (Auto) 5.5, Eos % (Auto) 0.0, [...] consistent with CHF. Reading Location: [facility] Chest CT 04/10/25 07:49 IMPRESSION: Coronary artery calcification (CAC) is is present Moderate right pleural effusion with compressive atelectasis in the right lower lobe as well as airspace disease in the right upper lobe with volume loss. Small left pleural effusion with left basilar atelectasis. Findings suggestive of CHF. Reading Location: [facility] Thoracentesis Ultrasound 04/10/25 09:12 IMPRESSION: Successful diagnostic and therapeutic ultrasound-guided right thoracentesis. Laboratory results pending. Reading Location: [place] [address] D/C Instructions Call your doctor if you [...] 2RF No Action (DME) OXYGEN - Supplemental ([facility] INFORMATIONAL USE ONLY) Gas See Rx [...] Self Care Charges/Coding Visit Charges Inpatient E&M: 40457 Disch Hosp >30min 04/10/25 1623 <Electronically signed by Nicola Roman MD> Cosigner Signature (if applicable): CC: Dr. Nicola Roman MD; Dr. Tonio Fajardo, ~ Signed [facility] Work Phone: 1(230) 918-528708-22-2025 [facility]08-22-2025 Radiology Diagnostic study [facility]08-22-2025 Hospital Discharge instructionsAdditional Instructions Date of Discharge: 04/10/25[facility] Work Phone: 1([phone]) 174-591908-22-2025 Progress note Author Nicola Roman [facility] Note Date/Time April 10, 2025 9: 18am [facility] Medical Records Department [address] [place] [address] Progress Note - Hospitalist 04/10/25 0750 MR#: [id number] Acct: [id number] Name: PEDRO HILLMAN Rep #:[id number] : 1945 80 From: Nicola Roman MD PCP: Dr. Tonio Fajardo DO Status:ADM IN Location: [place] [address] Reason for Visit Chief Complaint: SOB, Cough [...] (Auto) 91.6 H, Lymph % (Auto) 1.9L, [place] % (Auto) 5.5, Eos % (Auto) 0.0, [...] consistent with CHF. Reading Location: [facility] Physical Exam Narrative S GENERAL: dyspneic at [...] treated with radiation therapy currently followed by [facility] oncology and will start 8. Chronic [...] 52 Minutes Charges/Coding Visit Charges Inpatient E&M: 71502 Subs Hosp L3 04/10/25 0918 <Electronically signed by Nicloa Roman MD> Cosigner Signature (if applicable): CC: ~ Signed [facility] Work Phone: 1(358) 724-277808-22-2025 Radiology Diagnostic study [facility]08-21-2025 Radiology Diagnostic study [facility]08-21-2025 Procedure [facility]08-21-2025 Progress note Author Nicola Roman [facility] Note Date/Time April 09, 2025 11 :31am [facility] Medical Records Department [address] [place] [address] Progress Note - Hospitalist 04/09/251124 MR#: [id number] Acct: [id number] Name: PEDRO HILLMAN Rep #:[id number] : 1945 80 From: Nicola Roman MD PCP: Dr. Tonio Fajardo, DO Status:ADM IN Location: [place] [address] Reason for Visit Chief Complaint: SOB, Cough [...] (Auto) 91.8 H, Lymph % (Auto) 2.8L, [place] % (Auto) 4.7, Eos % (Auto) 0.0, [...] treated with radiation therapy currently followed by [facility] oncology and will start 8. Chronic [...] 50 Minutes Charges/Coding Visit Charges Inpatient E&M: 15262 Subs Hosp L3 04/09/25 1131 <Electronically signed by Nicola Roman MD> Cosigner Signature (if applicable): CC: ~ Signed [facility] Work Phone: 1(169) 196-343208-20-2025 Consult note Author Issa Looney [facility] Note Date/Time April 08, 2025 7: 12pm [facility] Medical Records Department [address] [place] [address] Consultation - Cardiology 04/08/25 1906 MR#: [id number] Acct: [id number] Name: PEDRO HILLMAN Rep #:[id number] : 1945 80 From: Issa Looney MD PCP: Dr. Tonio Fajardo, DO Status:ADM IN [facility] Assessment & Plan Assessment/Plan (1) Chronic [...] disease: QUALIFIERS: Coronary Disease-Associated Artery/Lesion type: nativeartery [place] vs. transplanted heart: [place] heart Associated angina: without angina Qualified Code(s): I25.10 - Atherosclerotic heart disease of [place] coronary artery without angina pectoris PLAN: He [...] pauses over 8 seconds present. [facility] Medical History Peripheral arterial disease Other persistent atrial fibrillation New onset atrial flutter COVCOLETTE Wears hearing aid in both ears Former smoker Coronary artery disease Peripheral vascular occlusive disease BPH (benign prostatic hyperplasia) Chronic kidney disease, stage 3 Atherosclerosis of coronary artery of [place] heart without angina pectoris Hyperlipidemia Lower extremity [...] (Auto) 91.4 H, Lymph % (Auto) 3.5L, [place] % (Auto) 4.5, Eos % (Auto) 0.0, [...] 91.4 H, Lymph % (Auto) 3.5 L, [place] % (Auto) 4.5, Eos % (Auto) 0.0, [...] applicable): CC: Dr. 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 Tonio Fajardo, DO Status:ADM IN Location: [place] [address] Assessment & Plan Assessment/Plan (1) DARIUSZ (acute [...] kidney from prior ATN after CABG at [place] March2013 (patient required hemodialysis for short period [...] He he was last seen in our [place] office in April 2021. 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 Baseline creatinine April 2021 was around 1.5 to 1.9 mg/dL. Yesterday in the emergency room creatinine 2.57, today his creatinine is 2.52 mg/dL. Patient denies any recent nausea, vomiting or diarrhea. He does state since feeling unwell appetite has been poor. No NSAIDs. Denies any hematuria, dysuria, frequency, nocturia. [facility] Medical History Peripheral arterial disease Other persistent atrial fibrillation New onset atrial flutter COVID Wears hearing aid in both ears Former smoker Coronary artery disease Peripheral vascular occlusive disease BPH (benign prostatic hyperplasia) Chronic kidney disease, stage 3 Atherosclerosis of coronary artery of [place] heart without angina pectoris Hyperlipidemia Lower extremity [...] (Auto) 79.7 H, Lymph % (Auto) 7.3L, [place] % (Auto) 10.7 H, Eos % (Auto) [...] Clarity Clear, Urine pH 5.0, Ur Specific [place] 1.015, Urine Protein 100 H, Urine Glucose [...] (Auto) 81.9 H, Lymph % (Auto) 6.4L, [place] % (Auto) 10.1 H, Eos % (Auto) [...] process cannot be reliably excluded. Reading Location: [facility] Chest X-Ray 04/06/25 04:13 IMPRESSION: Unchanged bilateral pleural effusions. Unchanged passive atelectatic airspace disease of the lower lobes. Unremarkable median sternotomy wires. Minimal decrease in pulmonary congestion/infiltrates. Enlarged cardiac silhouette. Reading Location: [place] [address] 04/06/25 1226 <Electronically signed by Renae BENSONC> Cosigner Signature (if applicable): 04/08/25 1851 <Electronically signed by Davon Saravia MD> CC: Dr. Tonio Fajardo, DO~ Signed [facility] Work Phone: 1(227) 355-905208-20-2025 Progress note Author Renae Sarabia [facility] Note Date/Time April 08, 2025 6: 51pm [facility] Medical Records Department [address] [place] [address] [place] [address] Progress Note - Nephrology 04/07/25 1046 MR#: [id number] Acct: [id number] Name: PEDRO HILLMAN Rep #:[id number] : 1945 80 From: Renae shultz NP-Estevan PCP: Dr. Tonio Fajardo, DO Status:ADM IN Location: [place] [address] Subjective Subjective Sitting in chair. No overnight [...] 92.8 H, Lymph % (Auto) 3.1 L, [place] % (Auto) 2.5, Eos % (Auto) 0.0, [...] 12:19 IMPRESSION: NORMAL RENAL ULTRASOUND. Reading Location: [facility] Physical Exam Narrative Alert and [...] kidney from prior ATN after CABG at [place] March 2013 (patient required hemodialysis for short [...] 2 L yesterday. 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 Renal ultrasound, normal ultrasound, no hydronephrosis. Urine [...] for hospital follow-up after hospital discharge in [place] office. Assessment and plan reviewed with Dr. Saravia. 04/07/25 1103 <Electronically signed by Renae ZHONG> Cosigner Signature (if applicable): 04/08/25 1621 <Electronically signed by Davon Saravia MD> CC: ~ Signed [facility] Work Phone: 1(912) 750-135708-20-2025 Progress note Author Nicola Roman [facility] Note Date/Time April 08, 2025 3: 41pm [facility] Medical Records Department [address] [place] [address] Progress Note - Hospitalist 04/08/25 0757 MR#: [id number] Acct: [id number] Name: PEDRO HILLMAN Rep #:[id number] : 1945 80 From: Nicola Roman MD PCP: Dr. Tonio Fajardo, DO Status:ADM IN Location: [place] [id number]- [id number] Reason for Visit Chief Complaint: SOB, [...] (Auto) 91.4 H, Lymph % (Auto) 3.5L, [place] % (Auto) 4.5, Eos % (Auto) 0.0, [...] treated with radiation therapy currently followed by [facility] oncology and will start 7. Chronic [...] 35 Minutes Charges/Coding Visit Charges Inpatient E&M: 78501 Subs Hosp L2 04/08/25 1113 <Electronically signed [...] Cosigner Signature (if applicable): cc: ~* Signed [facility] Work Phone: 1(567) 491-203908-20-2025 Discharge summary Author Nicola Roman [facility] Note Date/Time April 08, 2025 1: 45pm [facility] Medical Records Department [address] [place] [address] Discharge Summary 04/08/25 1114 MR#: [id number] Acct: [id number] Name: PEDRO HILLMAN Nora Rep #:[id number] : 1945 80 From: Nicola Roman MD PCP: Dr. Tonio Fajardo, DO Status:ADM IN [facility] Providers Date of Admission: 04/05/25 Date of Discharge: 04/08/25 Primary Care Physician: Dr. Tonio Fajardo, DO Consultations 04/05/25 20:36 Consult: Nephrology Routine Consulting Provider: Davon Saravia Reason for Consult: CKD; stage IV with Hyperkalemia and AE CHF. 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 Chronic [...] (Auto) 91.4 H, Lymph % (Auto) 3.5L, [place] % (Auto) 4.5, Eos % (Auto) 0.0, [...] Self Care Charges/Coding Visit Charges Inpatient E&M: 08189 Disch Hosp >30min 04/08/25 1345 <Electronically signed by Nicola Roman MD> [facility] Signature (if applicable): CC: Dr. Nicola Roman MD; Dr. Tonio Fajardo DO~ Signed [facility] Work Phone: 1(601) 350-219608-20-2025 [facility]08-19-2025 Progress note Author Nicola Roman [facility] Note Date/Time April 07, 2025 11 :26am [facility] Medical Records Department [address] [place] [address] Progress Note - Hospitalist 04/07/25 1113 MR#: [id number] Acct: [id number] Name: PEDRO HILLMAN Rep #:[id number] : 1945 80 From: Nicola Roman MD PCP: Dr. Tonio Fajardo, DO Status:ADM IN Location: [place] [address] Reason for Visit Chief Complaint: SOB, Cough [...] 92.8 H, Lymph % (Auto) 3.1 L, [place] % (Auto) 2.5, Eos % (Auto) 0.0, [...] 12:19 IMPRESSION: NORMAL RENAL ULTRASOUND. Reading Location: [facility] Physical Exam Narrative S GENERAL: [...] treated with radiation therapy currently followed by [facility] oncology and will start 7. Chronic [...] 52 Minutes Charges/Coding Visit Charges Inpatient E&M: 55531 Subs Hosp 04/07/25 1126 <Electronically signed by Nicola Roman MD> Cosigner Signature (if applicable): CC: ~ Signed [facility] Work Phone: 1(763) 402-906108-18-2025 Progress note Author Deric Lantigua [facility] Note Date/Time April 06, 2025 4: 53pm [facility] Medical Records Department [address] [place] [address] Progress Note - Hospitalist 04/06/25 0837 MR#: [id number] Acct: [id number] Name: PEDRO HILLMAN Rep #:[id number] : 1945 80 From: Deric Smith PCP: Dr. Tonio Fajardo, DO Status:ADM IN Location: [place] [address] Reason for Visit Chief Complaint: SOB, Cough [...] (Auto) 79.7 H, Lymph % (Auto) 7.3L, [place] % (Auto) 10.7 H, Eos % (Auto) [...] Clarity Clear, Urine pH 5.0, Ur Specific [place] 1.015, Urine Protein 100 H, Urine Glucose [...] (Auto) 81.9 H, Lymph % (Auto) 6.4L, [place] % (Auto) 10.1 H, Eos % (Auto) [...] process cannot be reliably excluded. Reading Location: [facility] Chest X-Ray 04/06/25 04:13 IMPRESSION: Unchanged bilateral pleural effusions. Unchanged passive atelectatic airspace disease of the lower lobes. Unremarkable median sternotomy wires. Minimal decrease in pulmonary congestion/infiltrates. Enlarged cardiac silhouette. Reading [facility] Exam Narrative Seen and examined Patient [...] oxygen requirement with increasing productive cough. Patient's mktwmhzv-oz-zex increased O2 to 4 L. Noleg swelling. 1. Acute on chronic HFpEF: Patient is being admitted in the PCU. proBNP 4003. Chest x-ray initially shows moderate right and small left pleural effusion and atelectasis and pulmonary edema. Serial troponins 64, 62 and 60 flat and indeterminate and not indicative of ACS.2D echo 03/05 reported EF 55%, PASP 42 mmHg with moderate TR, moderate CO and mild PI. TSH normal Plan: Patient is started on furosemide 40 mg IV twice daily. Heart failure coremeasures including intake and output, fluid restriction less than 1500 mL, dailyweight monitoring, kidney and electrolytes monitoring. 2. Persistent trial flutter/atrial fib: Currently patient in sinus rhythm. On child monitor sinus rhythm 105 bpm. During previous [...] (Auto) 79.7 H, Lymph % (Auto) 7.3L, [place] % (Auto) 10.7 H, Eos % (Auto) [...] Clarity Clear, Urine pH 5.0, Ur Specific [place] 1.015, Urine Protein 100 H, Urine Glucose [...] (Auto) 81.9 H, Lymph % (Auto) 6.4L, [place] % (Auto) 10.1 H, Eos % (Auto) [...] 140 H Charges/Coding Visit Charges Inpatient E&M: 92344 Subs Hosp L3 04/06/25 1653 <Electronically signed by Deric Lantigua MD> Cosigner Signature (if applicable): CC: ~ Signed [facility] Work Phone: 1(228) 585-343508-18-2025 Radiology Diagnostic study [facility]08-18-2025 History and physical note Author Nicola Madison [facility] Note Date/Time April 06, 2025 6: 23am [facility] Medical Records Department [address] [place] [address] H&P Exam - Hospitalist 04/05/251917 MR#: [id number] Acct: [id number] Name: PEDRO HILLMAN Rep #:[id number] : 1945 80 From: Nicola Levy DO PCP: Dr. Tonio Fajardo, Status:ADM IN Location: [facility]115- 1 HPI - General General Date of [...] patient still FULL CODE who presents to [facility] ER complaining of shortness of breath, cough [...] to extend beyond 2 midnights. [facility] Medical History Peripheral arterial disease Other persistent atrial fibrillation New onset atrial flutter COVID Wears hearing aid in both ears Former smoker Coronary artery disease Peripheral vascular occlusive disease BPH (benign prostatic hyperplasia) Chronic kidney disease, stage 3 Atherosclerosis of coronary artery of [place] heart without angina pectoris Hyperlipidemia Lower extremity [...] (Auto) 79.7 H, Lymph % (Auto) 7.3L, [place] % (Auto) 10.7 H, Eos % (Auto) [...] process cannot be reliably excluded. Reading Location: [facility] Assessment & Plan Assessment/Plan (1) Acute [...] 75 minutes. Charges/Coding Visit Charges Inpatient E&M: 34423 Init Hosp L3 04/06/25 0623 <Electronically signed by Nicola Lindsey DO> Cosigner Signature (if applicable): CC: Dr. Nicola Lindsey DO; Dr. Tonio Fajardo DO~ Signed [facility] Work Phone: 1(980) 741-627608-18-2025 Radiology Diagnostic study [facility]08-18-2025 Discharge summary Author Ld Hayes [facility] Note Date/Time April 06, 2025 12 :36am [facility] Medical Records Department [address] [place] [address] Emergency Department Summary 04/05/25 MR#: [id number] Acct: [id number] Name: PEDRO HILLMAN Rep #:[id number] : 1945 80 From: Ld Quintero PCP: Dr. Tonio Fajardo DO Status:ADM IN Location: [place] [address] HPI History of Present Illness Chief Complaint: Hypotension Informant: patient and family Narrative Narrative: Presents by EMS from home daughter in law present. Increasing productive cough. Chronic oxygenation of 3 L for COPD history remote history of lung cancer. Qvmlwlas-sb-vdh reports that increase his oxygen to 4 [...] CKD history. He is followed by the [facility] [place] [facility]. Reports he was admitted 3 weeks ago approximately had his metoprolol held and placed on diltiazem. Prior similar symptoms: Yes PFSH [facility] Medical History Peripheral arterial disease Other persistent atrial fibrillation New onset atrial flutter COVID Wears hearing aid in both ears Former smoker Coronary artery disease Peripheral vascular occlusive disease BPH (benign prostatic hyperplasia) Chronic kidney disease, stage 3 Atherosclerosis of coronary artery of [place] heart without angina pectoris Hyperlipidemia Lower extremity [...] clinician: Hospitalist This note was generated with [employer] dictation software. It may contain incorrectwords, spelling, [...] 79.7 H Lymph % (Auto) 7.3 L [place] % (Auto) 10.7 H Eos % (Auto) [...] process cannot be reliably excluded. Reading Location: [id number] Discharge Plan Dx/Rx/DC Orders Clinical Impression: CHF exacerbation, Chronic kidney disease, stage 3, Atrial flutter, Chronic anticoagulation, Hyperkalemia Disposition Disposition: Acute Care Hospital [facility] Discharge Date/Time: 04/05/25 20:38 What to do if you have Problems For any increased pain, shortness of breath, bleeding, nausea or vomiting, chestpain, or any unexpected problems, contact your Primary Care Provider. Call [facility] ([phone]) or report to the closest Emergency Room. Call 911 if necessary. 04/06/25 0036 <Electronically signed by Ld Quintero> Cosigner Signature (if applicable): CC: Dr. Tonio Fajardo DO ~ Signed [facility] Work Phone: 1(483) 178-472508-17-2025 Radiology Diagnostic study [facility]07-27-2025 Discharge summary [facility] Medical Records Department [address] [place] [address] Emergency Department Summary 03/15/25 MR#: [id number] Acct: [id number] Name: PEDRO HILLMAN Rep #:[id number] : 1945 80 From: Alex Matias MD [...] similar symptoms: Yes Recent Illness/Hospital[facility]: Yes ([facility] Medical History Other persistent atrial fibrillation New onset atrial flutter COVID Wears hearing aid in both ears Former smoker Coronary artery disease Peripheral vascular occlusive disease BPH (benign prostatic hyperplasia) Chronic kidney disease, stage 3 Atherosclerosis of coronary artery of [place] heart without angina pectoris Hyperlipidemia Lower extremity [...] 4 doses of apixaban, Eliquis Print Language: Bolivian Disposition Disposition: Home, Self Care What to do if you have Problems For any increased pain, shortness of breath, bleeding, nausea or vomiting, chestpain, or any unexpected problems, contact your Primary Care Provider. Call [facility] ([phone]) or report tothe closest Emergency Room. Call 911 if necessary. 03/15/25 1822 Cosigner Signature (if applicable): CC: Dr. Tonio Fajardo, DO ~ Signed [facility]07-27-2025 Discharge summary Author Alex Matias [facility] Note Date/Time March 15, 2025 6:22 pm [facility] Medical Records Department [address] [facility] [place] [address] Emergency Department Summary 03/15/25 MR#: [id number] Acct: [id number] Name: PEDRO HILLMAN Rep #:[id number] : 1945 80 From: Alex Matias MD [...] similar symptoms: Yes Recent Illness/Hospitalization: Yes (CHF) [facility] Medical History Other persistent atrial fibrillation New onset atrial flutter COVID Wears hearing aid in both ears Former smoker Coronary artery disease Peripheral vascular occlusive disease BPH (benign prostatic hyperplasia) Chronic kidney disease, stage 3 Atherosclerosis of coronary artery of [place] heart without angina pectoris Hyperlipidemia Lower extremity [...] 4 doses of apixaban, Eliquis Print Language: Bolivian Disposition Disposition: Home, Self Care What to do if you have Problems For any increased pain, shortness of breath, bleeding, nausea or vomiting, chestpain, or any unexpected problems, contact your Primary Care Provider. Call [facility] ([phone]) or report to the closest Emergency Room. Call 911 if necessary. 03/15/25 1822 <Electronically signed by Alex Matias MD> Cosigner Signature (if applicable): CC: Dr. Tonio Fajadro, ~ Signed [facility] Work Phone: 1(191) 435-823707-27-2025 Hospital Discharge instructionsAdditional Instructions 1. Hold the next 4 doses of apixaban, Eliquis. 2. Take amoxicillin as prescribed until gone 3. Contact Dr. Vasquez's office in the morning to be seen later this week to have the pack removed.[facility] Work Phone: 1(537) 693-948207-21-2025 Consult note [facility] Medical Records Department [address] [place] [address] Counseling Note - Pharmacy 03/09/25 8259 MR#: [id number] Acct: [id number] Name: PEDRO HILLMAN Rep #:[id number] : 1945 80 From: Mala Sterling PCP: Dr. Tonio Fajardo, Status:ADM IN Location: [facility] [id number] 1 Pharmacy [facility] Counseling Pharmacy Service has performed discharge [...] Signature (if applicable): Date CC: ~ Signed [facility]07-21-2025 Discharge summary Author Deric Lantigua [facility] Note Date/Time March 09, 2025 12:5 2pm [facility] Medical Records Department [address] [place] [address] Discharge Summary 03/09/25 1251 MR#: [id number] Acct: [id number] Name: PEDRO HILLMAN Rep #:[id number] : 1945 80 From: Deric Smith PCP: Dr. Tonio Fajardo, Status:ADM IN Location: [address] 1 Providers Date of Admission: 03/04/25 Date of Discharge: 03/09/25 Primary Care Physician: Dr. Tonio Fajardo, Consultations 03/04/25 21:21 Consult: Cardiology Routine Consulting Provider: [facility] Reason for Consult: AE CHF, a flutter [...] Code(s): I25.10 - Atherosclerotic heart disease of [place] coronary artery without angina pectoris Qualifiers: Coronary Disease-Associated Artery/Lesion type: [place] artery [place] vs. transplanted heart: [place] heart Associated angina: without angina Qualified Code(s): I25.10 - Atherosclerotic heart disease of [place] coronary artery without angina pectoris (3) Chronic [...] no significant delta change. ACS ruled out. Tax Agent is consulted. Repeat proBNP is elevated but it does not reflect treatment response as it should not be ordered for that. Clinically patient is feeling better with improvement in shortness of breath. 2D echo 03/05 reported EF 55%, PASP 42 mmHg with moderate TR, moderate CO and mild PI. 03/06: Furosemide changed to [...] conduction. Later on irregular variable conduction on child monitor 03/06: Discussed with the die repairer forging. Metoprolol increased to 25 mg twice daily, [...] pressure in the 90s. Discussed with the die repairer forging. Advised to discontinue to discontinue metoprolol and [...] the CODE STATUS. 03/09: Discussed with the die repairer forging.Patient heart rate controlled in 70s. Yesterday rate was in 80s. Patient tolerated Cardizem 30 mg every 8 hourly therefore discharged on Cardizem CD 120 mg. I called patient's wsdfxlxu-dk-wtm and explained the medication. Tax Agent felt probably does not need even pacemaker. [...] the right lung base. Reading Location: [facility]-1 Echocardiogram 03/04/25 20:08 Interpretation Summary [...] in right lung base aeration. Reading Location: [facility]- Medications at Discharge Home Medications insulin glargine [...] 03/05/25 14:17 SB (Rec: 03/05/25 14:17 SB [id number]) Nutrition Malnutrition Evidence of Yes Malnutrition Exists [...] (Auto) 72.6 H, Lymph % (Auto) 9.7L, [place] % (Auto) 12.1 H, Eos % (Auto) [...] Self Care Charges/Coding Visit Charges Inpatient E&M: 23774 Disch Hosp >30min 03/09/25 1252 <Electronically signed by Deric Lantigua MD> Cosigner Signature (if applicable): CC: Dr. Tonio Fajardo DO; Dr. Willian Glaser MD; Dr. Deric Lantigua MD~ Signed [facility] Work Phone: 1(140) 448-765907-21-2025 Discharge summary Author Deric Lantigua [facility] Note Date/Time March 09, 2025 12:4 4pm [facility] Medical Records Department [facility] [place] [address] Instructions for Home/Discharge Instructions 03/09/25 1031 MR#: [id number] Acct: [id number] Name: PEDRO HILLMAN Rep #:[id number] : 1945 80 From: Deric Smith PCP: [...] Care Provider: Tonio Fajardo Consulting Providers: Nicola iLndsey; Paris Tiwari; Susan Hawley; Nicolette Mcdonald;Marjorie Green; [...] 1 Month (For DARIUSZ on CKD) Tonio Fajarod DO [Primary Care Provider] - Leslie Arriaga [...] MD; RICKIE Kumari; RICKIE Cummins ~ Signed [facility] Work Phone: 1(564) 855-480307-21-2025 Hospital Discharge instructionsAdditional Instructions Discharge with Claudio catheter. [facility]: [facility]: 1(643) 665-533107-21-2025 Discharge summary [facility] Medical Records Department [address] [place] [address] Discharge Summary 03/09/25 1251 MR#: [id number] Acct: [id number] Name: PEDRO HILLMAN Rep #:[id number] : 1945 80 From: Deric Smith PCP: Dr. Tonio Fajardo, Status:ADM IN Location: [place] [address] Providers Date of Admission: 03/04/25 Date of Discharge: 03/09/25 Primary Care Physician: Dr. Tonio Fajardo, Consultations 03/04/25 21:21 Consult: Cardiology Routine Consulting Provider: [facility] Reason for Consult: AE CHF, [...] Code(s): I25.10 - Atherosclerotic heart disease of [place] coronary artery without angina pectoris Qualifiers: Coronary Disease-Associated Artery/Lesion type: [place] artery [place] vs. transplanted heart: nativeheart Associated angina: without angina Qualified Code(s): I25.10 - Atherosclerotic heart disease of [place] coronary artery without angina pectoris (3) Chronic [...] no significant delta change. ACS ruled out. Tax Agent is consulted. Repeat proBNP is elevated but it does not reflect treatment response as it should not be ordered for that. Clinically patient is feeling better with improvement in shortness of breath. 2D echo 03/05 reported EF 55%, PASP 42 mmHg with moderate TR, moderate CO and mild PI. 03/06: Furosemide changed to [...] conduction. Later on irregular variable conduction on child monitor 03/06: Discussed with the die repairer forging. Metoprolol increased to 25 mg twice daily, Cardizem 60 mg D2dxfken. If heart rate controlled, will switch to [...] pressure in the 90s. Discussed with the die repairer forging. Advised to discontinue to discontinue metoprolol and [...] the CODE STATUS. 03/09: Discussed with the die repairer forging.Patient heart rate controlled in 70s. Yesterday rate was in 80s. Patient tolerated Cardizem 30 mg every 8 hourly therefore discharged on Cardizem CD 120 mg. I called patient's yljaaizm-ne-sse and explained the medication. Tax Agent felt probably does not need even pacemaker. [...] at the right lung base. Reading Location: [facility]-1 Echocardiogram 03/04/25 20:08 Interpretation Summary Moderate [...] in right lung base aeration. Reading Location: [facility]-2 Medications at Discharge Home Medications insulin glargine [...] 03/05/25 14:17 SB (Rec: 03/05/25 14:17 SB [id number]) Nutrition Malnutrition Evidence of Yes Malnutrition Exists [...] (Auto) 72.6 H, Lymph % (Auto) 9.7L, [place] % (Auto) 12.1 H, Eos % (Auto) [...] Self Care Charges/Coding Visit Charges Inpatient E&M: 61948 Disch Hosp >30min 03/09/25 1252 Cosigner Signature (if applicable): CC: Dr. Tonio Fajardo DO; Dr. Willian Glaser MD; Dr. Deric Lantigua MD~ Signed [facility]-21-20[facility] Discharge summary [facility] Medical Records Department [address] [place] [address] Instructions for Home/Discharge Instructions 03/09/25 1031 MR#: [id number] Acct: [id number] Name: PEDRO HILLMAN Rep #:[id number] : 1945 80 From: Deric Smith PCP: [...] Self Care 03/09/25 1244Pmaribel Lantigua MD CC: [employer]-Estevan Rodriguez; Dr. Susan Hawley MD; Dr. Paris Tiwari MD; Dr. Marjorie Green MD; Dr. Nicolette Mcdonald MD; Dr. Martin Vivas MD; Dr. Jose Lai MD; Dr. Issa Looney MD; Dr. Nicola Lindsey DO; Dr. Chago Miller MD; Dr. Tonio Fajardo DO; Dr. Willian Glaser MD; Dr. Orly Mitchell MD;Dr. Santos Hsu MD; Dr. Reinaldo Mclain MD; RICKIE Kumari; RICKIE Cummins ~ Signed [facility]07-21-2025 Progress note Author Willian Glaser [facility] Note Date/Time March 09, 2025 9:53 am [facility] Medical Records Department [address] [place] [address] Progress Note - Cardiology 03/09/25 0943 MR#: [id number] Acct: [id number] Name: PEDRO HILLMAN Rep #:[id number] : 1945 80 From: Willian Glaser MD PCP: Dr. Tonio Fajardo DO Status:ADM IN Location: [place] [address]- 1 Subjective Subjective Patient evaluated in a [...] (Auto) 72.6 H, Lymph % (Auto) 9.7L, [place] % (Auto) 12.1 H, Eos % (Auto) [...] 72.6 H, Lymph % (Auto) 9.7 L, [place] % (Auto) 12.1 H, Eos % (Auto) [...] disease: QUALIFIERS: Coronary Disease-Associated Artery/Lesion type: nativeartery [place] vs. transplanted heart: [place] heart Associated angina: without angina Qualified Code(s): I25.10 - Atherosclerotic heart disease of [place] coronary artery without angina pectoris PLAN: Patient carries a history of bypass graft surgery followed in the [facility]. The patient should be reevaluated in 2 to 4 weeks in the [facility] with advanced practitioner. Given the patient's [...] At discharge patient should follow-up with the [facility] advanced practitioner in 2 to 3 weeks. 4. If further assistance is needed please reconsult the [facility]. Charges/Coding Visit Charges Inpatient E&M: 17659 Subs Hosp L3 03/09/25 0953 <Electronically signed by Willian Glaser MD> Cosigner Signature (if applicable): CC: ~ Signed [facility] Work Phone: 1(682) 427-196807-21-2025 Progress note [facility] Medical Records Department [address] [place] [address] Progress Note - Cardiology 03/09/25 0943 MR#: [id number] Acct: [id number] Name: PEDRO HILLMAN Rep #:[id number] : 1945 80 From: Willian Glaser MD PCP: Dr. Tonio Fajardo, DO Status:ADM IN Location: [place] [address] Subjective Subjective Patient evaluated in a seated [...] (Auto) 72.6 H, Lymph % (Auto) 9.7L, [place] % (Auto) 12.1 H, Eos % (Auto) [...] 72.6 H, Lymph % (Auto) 9.7 L, [place] % (Auto) 12.1 H, Eos % (Auto) [...] disease: QUALIFIERS: Coronary Disease-Associated Artery/Lesion type: nativeartery [place] vs. transplanted heart: [place] heart Associated angina: without angina Qualified Code(s): I25.10 - Atherosclerotic heart disease of [place] coronary artery without angina pectoris PLAN: Patient carries a history of bypass graft surgery followed in the [facility]. The patient should be reevaluated in 2 to 4 weeks in the [facility] with advanced practitioner. Given the patient's [...] At discharge patient should follow-up with the [facility] advanced practitioner in 2 to3 weeks. 4. If further assistance is needed please reconsult the [facility]. Charges/Coding Visit Charges Inpatient E&M: 45870 Subs Hosp L3 03/09/25 0953 Cosigner Signature (if applicable): CC: ~ Signed [facility]07-20-2025 Progress note Author Deric Lantigua [facility] Note Date/Time March 08, 2025 1:34 pm [facility] Medical Records Department [address] [place] [address] Progress Note - Hospitalist 03/08/25 0844 MR#: [id number] Acct: [id number] Name: PEDRO HILLMAN Rep #:[id number] : 1945 80 From: Deric Smith PCP: Dr. Tonio Fajardo, DO Status:ADM IN Location: [place] [address] Reason for Visit Chief Complaint: SOB. Objective [...] 03/05/25 14:17 SB (Rec: 03/05/25 14:17 SB [id number]) Nutrition Malnutrition Evidence of Yes Malnutrition Exists [...] also sustained 11 beats of V. tach. color television console monitor reviewed. Still in A-fib/flutter with bradycardia. [...] hematuria: (8) Atherosclerosis of coronary artery of [place] heart without angina pectoris: QUALIFIERS: Coronary Disease-Associated Artery/Lesion type: nativeartery Qualified Code(s): I25.10 - Atherosclerotic heart disease of [place] coronary artery without angina pectoris (9) Overweight [...] no significant delta change. ACS ruled out. Tax Agent is consulted. Repeat proBNP is elevated but it does not reflect treatment response as it should not be ordered for that. Clinically patient is feeling better with improvement in shortness of breath. 2D echo 03/05 reported EF 55%, PASP 42 mmHg with moderate TR, moderate CO and mild PI. 03/06: Furosemide changed to [...] conduction. Later on irregular variable conduction on child monitor 03/06: Discussed with the die repairer forging. Metoprolol increased to 25 mg twice daily, [...] pressure in the 90s. Discussed with the die repairer forging. Advised to discontinue to discontinue metoprolol and [...] the right lung base. Reading Location: [facility]-1 Echocardiogram 03/04/25 20:08 Interpretation Summary [...] in right lung base aeration. Reading Location: [place] [address] Charges/Coding Addendum Addendum: Total time of the visit including total time spent in counseling or coordinationof care, (more than 50% of the total time, spent in obtaining medical information from nurses and other ancillary care providers ,explaining to the patient about labs, imaging, diagnosis and management of active complex medical conditions), multiple active cardiac issues, urinary retention discussion with die repairer forging and clinical update given to patient's hyyiyigh-tv-ugr, review of labs and imaging is 35 minutes. Visit Charges Inpatient E&M: 55376 Subs Hosp L3 03/08/25 1040 <Electronically signed by Deric Lantigua MD> Cosigner Signature (if applicable): CC: ~ Signed ADDENDUM by Dr. Deric Lantigau MD on 03/08/25 at 1334 Addendum The patient's son and fcpvcpuk-np-sdk came to visit him. They decided patient to be DNR CC arrest with no intubation CODE STATUS changed. Living will/advanced directive/end of life care: Patient does not have living will or advanced directive. He is next of kin is his son and yjuidelc-xo-eij. After discussion of benefits/risks procedures involved with full code, DNR CC arrest and DNR CC, the patient and his inermvwi-qg-ebg he opted for DNR CC arrest with no intubation. Patient also said that he does not want pacemaker but his xevjpfaq-do-bqe and son will discuss with him Patient does want artificial life support including intubation, tube feed, ventilator and/chest compression, central venous catheter, vasopressor and DC shock if needed Total time spent in wgjf-tr-zqkx encounter in discussion of advanced directive 17 minutes. 03/08/25 1334<Electronically signed by Deric Lantigua MD> Cosigner Signature (if applicable): cc: ~* Signed [facility] Work Phone: 1(767) 289-226107-20-2025 Progress note [facility] Medical Records Department [address] [place] [address] Progress Note - Hospitalist 03/08/25 0844 MR#: [id number] Acct: [id number] Name: PEDRO HILLMAN Rep #:[id number] : 1945 80 From: Deric Smith PCP: Dr. Tonio Fajardo, Status:ADM IN Location: [place] [address] Reason for Visit Chief Complaint: SOB. Objective [...] 03/05/25 14:17 SB (Rec: 03/05/25 14:17 SB [id number]) Nutrition Malnutrition Evidence of Yes Malnutrition Exists [...] Patient alsosustained 11 beats of V. tach. color television console monitor reviewed. Still in A-fib/flutter with bradycardia. [...] hematuria: (8) Atherosclerosis of coronary artery of [place] heart without angina pectoris: QUALIFIERS: Coronary Disease-Associated Artery/Lesion type: nativeartery Qualified Code(s): I25.10 - Atherosclerotic heart disease of [place] coronary artery without angina pectoris (9) Overweight [...] no significant delta change. ACS ruled out. Tax Agent is consulted. Repeat proBNP is elevated but it does not reflect treatment response as it should not be ordered for that. Clinically patient is feeling better with improvement in shortness of breath. 2D echo 03/05 reported EF 55%, PASP 42 mmHg with moderate TR, moderate CO and mild PI. 03/06: Furosemide changed to [...] conduction. Later on irregular variable conduction on child monitor 03/06: Discussed with the die repairer forging. Metoprolol increased to 25 mg twice daily, Cardizem 60 mg [id number]. If heart rate controlled, will switch to [...] pressure in the 90s. Discussed with the die repairer forging. Advised to discontinue to discontinue metoprolol and [...] the right lung base. Reading Location: [facility]-1 Echocardiogram 03/04/25 20:08 Interpretation Summary [...] in right lung base aeration. Reading Location: [place] [address] Charges/Coding Addendum Addendum: Total time of the visit including total time spent in counseling or coordinationof care, (more than50% of the total time, spent in obtaining medical information from nurses and other ancillary care providers ,explaining to the patient about labs, imaging, diagnosis and management of active complexmedical conditions), multiple active cardiac issues, urinary retention discussion with cardiologistand clinical update given to patient's dnvjraxk-uy-nwy, review of labs and imaging is 35 minutes. Visit Charges Inpatient E&M: 23304 Subs Hosp 03/08/25 1040 Cosigner Signature (if applicable): CC: ~ Signed ADDENDUM by Dr. Deric Lantigua MD on 03/08/25 at 1334 Addendum The patient's son and rutfhmka-xc-wrd came to visit him. They decided patient to be DNR CC arrest with no intubation CODE STATUS changed. Living will/advanced directive/end of life care: Patient does not have living will or advanced directive. He is next of kin is his son and doivsyjn-bk-rzc. After discussion of benefits/risks procedures involved with full code, DNR CC arrest and DNR CC, the patient and his cqtdgutq-wy-tro he opted for DNR CC arrest with no intubation. Patient also said that he does not want pacemaker but his febotqoa-ws-oxp and son will discuss with him Patient does want artificial life support including intubation, tube feed, ventilator and/chest compression, central venous catheter, vasopressor and DC shock if needed Total time spent in ndtf-kw-lkbj encounter in discussion of advanced directive 17 minutes. 03/08/25 1334 Cosigner Signature (if applicable): cc: ~* Signed [facility]07-20-2025 Progress note Author Marjorie Green [facility] Note Date/Time March 08, 2025 8:51 am [facility] Medical Records Department [address] [place] [address] Progress Note - Cardiology 03/08/2548 MR#: [id number] Acct: [id number] Name: PEDRO HILLMAN Rep #:[id number] : 1945 80 From: Marjorie Green MD PCP: Dr. Tonio Fajardo, DO Status:ADM IN Location: [place] [address] Subjective Subjective Denies any complaints. Became bradycardic [...] Cosigner Signature (if applicable): CC: ~ Signed [facility] Work Phone: 1(221) 838-796307-20-2025 Progress note [facility] Medical Records Department [address] [place] [address] Progress Note - Cardiology 03/08/25 0848 MR#: [id number] Acct: [id number] Name: PEDRO HILLMAN Rep #:[id number] : 1945 80 From: Marojrie Green MD PCP: Dr. Tonio Fajardo, DO Status:ADM IN Location: [place] [address] Subjective Subjective Denies any complaints. Became bradycardic [...] Cosigner Signature (if applicable): CC: ~ Signed [facility]07-19-2025 Progress note Author Deric Lantigua [facility] Note Date/Time March 07, 2025 1:51 pm [facility] Medical Records Department [address] [place] [address] Progress Note - Hospitalist 03/07/25 1342 MR#: [id number] Acct: [id number] Name: PEDRO HILLMAN Rep #:[id number] : 1945 80 From: Dreic Smith PCP: Dr. Tonio Fajardo, DO Status:ADM IN Location: [address] 1 Reason for Visit Chief Complaint: [...] 03/05/25 14:17 SB (Rec: 03/05/25 14:17 SB [id number]) Nutrition Malnutrition Evidence of Yes Malnutrition Exists [...] low 108/34 but improved to 129 systolic. color television console monitor reviewed. Still in A-fib/flutter. Shortness of [...] hematuria: (8) Atherosclerosis of coronary artery of [place] heart without angina pectoris: QUALIFIERS: Coronary Disease-Associated Artery/Lesion type: nativeartery Qualified Code(s): I25.10 - Atherosclerotic heart disease of [place] coronary artery without angina pectoris (9) Overweight [...] pleural effusion and bibasilar atelectasis worse at [facility] lung base Maintain metoprolol and lisinopril as before. 03/05: Heart failure core measures including intake and output, fluid restrictionless than 1500 mL, daily weight monitoring, kidney and electrolytes monitoring. On furosemide 40 mg twice daily. Serial troponins 44, 45 and 42 therefore no significant delta change. ACS ruled out. Tax Agent is consulted. Repeat proBNP is elevated but it does not reflect treatment response as it should not be ordered for that. Clinically patient is feeling better with improvement in shortness of breath. 2D echo 03/05 reported EF 55%, PASP 42 mmHg with moderate TR, moderate CO and mild PI. 03/06: Furosemide changed to [...] conduction. Later on irregular variable conduction on child monitor 03/06: Discussed with the die repairer forging. Metoprolol increased to 25 mg twice daily, [...] the right lung base. Reading Location: [facility] Echocardiogram 03/04/25 20:08 Interpretation Summary [...] in right lung base aeration. Reading Location: [place] [address] Charges/Coding Visit Charges Inpatient E&M: 07222 Subs Hosp L2 03/07/25 1355 <Electronically signed by Deric Lantigua MD> Cosigner Signature (if applicable): CC: ~ Signed [facility] Work Phone: 1(649) 861-711207-19-2025 Progress note [facility] Medical Records Department [address] [place] [address] Progress Note - Hospitalist 03/07/25 1342 MR#: [id number] Acct: [id number] Name: PEDRO HILLMAN Rep #:[id number] : 1945 80 From: Deric Smith PCP: Dr. Tonio Fajardo, DO Status:ADM IN Location: [place] [address] Reason for Visit Chief Complaint: SOB. Objective [...] 03/05/25 14:17 SB (Rec: 03/05/25 14:17 SB [id number]) Nutrition Malnutrition Evidence of Yes Malnutrition Exists [...] low 108/34 but improved to 129 systolic. color television console monitor reviewed. Still in A-fib/flutter. Shortness of [...] hematuria: (8) Atherosclerosis of coronary artery of [place] heart without angina pectoris: QUALIFIERS: Coronary Disease-Associated Artery/Lesion type: nativeartery Qualified Code(s): I25.10 - Atherosclerotic heart disease of [place] coronary artery without angina pectoris (9) Overweight [...] no significant delta change. ACS ruled out. Tax Agent is consulted. Repeat proBNP is elevated but it does not reflect treatment response as it should not be ordered for that. Clinically patient is feeling better with improvement in shortness of breath. 2D echo 03/05 reported EF 55%, PASP 42 mmHg with moderate TR, moderate CO and mild PI. 03/06: Furosemide changed to [...] conduction. Later on irregular variable conduction on child monitor 03/06: Discussed with the die repairer forging. Metoprolol increased to 25 mg twice daily, Cardizem 60 mg [id number]. If heart rate controlled, will switch to [...] the right lung base. Reading Location: [facility] Echocardiogram 03/04/25 20:08 Interpretation Summary [...] in right lung base aeration. Reading Location: [place] [address] Charges/Coding Visit Charges Inpatient E&M: 17772 Subs Hosp L2 03/07/25 1351 Cosigner Signature (if applicable): CC: ~ Signed [facility]07-18-2025 Progress note Author Deric Lantigua [facility] Note Date/Time March 06, 2025 3:46 pm [facility] Medical Records Department [address] [place] [address] Progress Note - Hospitalist 03/06/25 1540 MR#: [id number] Acct: [id number] Name: PEDRO HILLMAN Nora Rep #:[id number] : 1945 80 From: Deric Smith PCP: Dr. Tonio Fajardo, DO Status:ADM IN Location: [place] [address] Reason for Visit Chief Complaint: SOB. Objective [...] 03/05/25 14:17 SB (Rec: 03/05/25 14:17 SB [id number]) Nutrition Malnutrition Evidence of Yes Malnutrition Exists [...] is improved. Still in A-fib/flutter with heart [id number]. Shortness of breath is better. Did not [...] hematuria: (8) Atherosclerosis of coronary artery of [place] heart without angina pectoris: QUALIFIERS: Coronary Disease-Associated Artery/Lesion type: nativeartery Qualified Code(s): I25.10 - Atherosclerotic heart disease of [place] coronary artery without angina pectoris (9) Overweight [...] no significant delta change. ACS ruled out. Tax Agent is consulted. Repeat proBNP is elevated but it does not reflect treatment response as it should not be ordered for that. Clinically patient is feeling better with improvement in shortness of breath. 2D echo 03/05 reported EF 55%, PASP 42 mmHg with moderate TR, moderate CO and mild PI. 03/06: Furosemide changed to [...] conduction. Later on irregular variable conduction on child monitor 03/06: Discussed with the die repairer forging. Metoprolol increased to 25 mg twice daily, [...] the right lung base. Reading Location: [facility] Echocardiogram 03/04/25 20:08 Interpretation Summary [...] in right lung base aeration. Reading Location: [place] [address] Charges/Coding Visit Charges Inpatient E&M: 25267 Subs Hosp L2 03/06/25 1546 <Electronically signed by Deric Lantigua MD> Cosigner Signature (if applicable): CC: ~ Signed [facility] Work Phone: 1(920) 138-959307-18-2025 Progress note [facility] Medical Records Department [address] [place] [address] Progress Note - Hospitalist 03/06/25 1540 MR#: [id number] Acct: [id number] Name: PEDRO HILLMAN Rep #:[id number] : 1945 80 From: Deric Smith PCP: Dr. Tonio Fajardo, DO Status:ADM IN Location: [place] [address] Reason for Visit Chief Complaint: SOB. Objective [...] 03/05/25 14:17 SB (Rec: 03/05/25 14:17 SB [id number]) Nutrition Malnutrition Evidence of Yes Malnutrition Exists [...] is improved. Still in A-fib/flutter with heart azps950y. Shortness of breath is better. Did not [...] hematuria: (8) Atherosclerosis of coronary artery of [place] heart without angina pectoris: QUALIFIERS: Coronary Disease-Associated Artery/Lesion type: nativeartery Qualified Code(s): I25.10 - Atherosclerotic heart disease of [place] coronary artery without angina pectoris (9) Overweight [...] no significant delta change. ACS ruled out. Tax Agent is consulted. Repeat proBNP is elevated but it does not reflect treatment response as it should not be ordered for that. Clinically patient is feeling better with improvement in shortness of breath. 2D echo 03/05 reported EF 55%, PASP 42 mmHg with moderate TR, moderate CO and mild PI. 03/06: Furosemide changed to [...] conduction. Later on irregular variable conduction on child monitor 03/06: Discussed with the die repairer forging. Metoprolol increased to 25 mg twice daily, Cardizem 60 mg [id number]. If heart rate controlled, will switch to [...] the right lung base. Reading Location: [facility] Echocardiogram 03/04/25 20:08 Interpretation Summary [...] in right lung base aeration. Reading Location: [place] [address] Charges/Coding Visit Charges Inpatient E&M: 33909 Subs Hosp L2 03/06/25 1546 Cosigner Signature (if applicable): CC: ~ Signed [facility]07-18-2025 Consult note Author Marjorie Green [facility] Note Date/Time March 06, 2025 9:33 am [facility] Medical Records Department [address] [place] [address] Consultation - Cardiology 03/06/25925 MR#: [id number] Acct: [id number] Name: PEDRO HILLMAN Rep #:[id number] : 1945 80 From: Marjorie Green MD PCP: Dr. Tonio Fajardo, DO Status:ADM IN Location: [facility]- 1 Assessment & Plan Assessment/Plan (1) Atrial [...] of breath is much improved. [facility] Medical History (Updated 03/06/25 @ 09:[address] Marjorie Green MD) Other persistent atrial fibrillation New onset atrial flutter COVID Wears hearing aid in both ears Former smoker Coronary artery disease Peripheral vascular occlusive disease BPH (benign prostatic hyperplasia) Chronic kidney disease, stage 3 Atherosclerosis of coronary artery of [place] heart without angina pectoris Hyperlipidemia Lower extremity [...] applicable): CC: Dr. Tonio Fajardo, ~ Signed [facility] Work Phone: 1(239) 621-913207-18-2025 Consult note [facility] Medical Records Department [address] [place] [address] Consultation - Cardiology 03/06/25925 MR#: [id number] Acct: [id number] Name: PEDRO HILLMAN Rep #:[id number] : 1945 80 From: Marjorie Green MD PCP: Dr. Tonio Fajardo, Status:ADM IN Location: [place] [address] Assessment & Plan Assessment/Plan (1) Atrial flutter [...] of breath is much improved. [facility] Medical History (Updated 03/06/25 @ 09:[address] Marjorie Green MD) Other persistent atrial fibrillation New onset atrial flutter COVID Wears hearing aid in both ears Former smoker Coronary artery disease Peripheral vascular occlusive disease BPH (benign prostatic hyperplasia) Chronic kidney disease, stage 3 Atherosclerosis of coronary artery of [place] heart without angina pectoris Hyperlipidemia Lower extremity [...] applicable): CC: Dr. Tonio Fajardo, ~ Signed [facility]07-17-2025 Progress note Author Deric Lantigua [facility] Note Date/Time March 05, 2025 3:56 pm [facility] Medical Records Department [address] [place] [address] Progress Note - Hospitalist 03/05/25 0719 MR#: [id number] Acct: [id number] Name: PEDRO HILLMAN Rep #:[id number] : 1945 80 From: Deric Smith PCP: Dr. Tonio Fajardo DO Status:ADM IN Location: [place] [id number] Reason for Visit Chief Complaint: SOB. [...] 78.1 H, Lymph % (Auto) 10.1 L, [place] % (Auto) 9.1, Eos % (Auto) 1.6, [...] Clarity Cloudy, Urine pH 6.5, Ur Specific [place] 1.010, Urine Protein 100 H, Urine Glucose [...] (Auto) 76.4 H, Lymph % (Auto) 9.5L, [place] % (Auto) 11.4 H, Eos % (Auto) [...] the right lung base. Reading Location: [facility]1 Chest X-Ray 03/05/25 04:30 IMPRESSION: Small interval improvement in right lung base aeration. Reading Location: [place] [address] Rhythm Strip Rhythm Strip: Atrial flutter Rate: [...] hematuria: (8) Atherosclerosis of coronary artery of [place] heart without angina pectoris: QUALIFIERS: Coronary Disease-Associated Artery/Lesion type: nativeartery Qualified Code(s): I25.10 - Atherosclerotic heart disease of [place] coronary artery without angina pectoris (9) Overweight [...] no significant delta change. ACS ruled out. Tax Agent is consulted. Repeat proBNP is elevated but it does not reflect treatment response as it should not be ordered for that. Clinically patient is feeling better with improvement in shortness of breath. 2D echo 03/05 reported EF 55%, PASP 42 mmHg with moderate TR, moderate CO and mild PI. 2. EKG evidence of Atrial Flutter; with Rapid Ventricular Response of ~117 bpm even after being treated with IV Cardizem bolus probably precipitating CHF exacerbation: Patient already on apixaban patient had digoxin. TSH 3.7 normal. Twelve-lead EKG individually reviewed and shows atrial flutter 2 is to 1 conduction. Later on irregular variable conduction on child monitor 3. CKD; stage IIIb with hyperkalemia, [...] Clarity Cloudy, Urine pH 6.5, Ur Specific [place] 1.010, Urine Protein 100 H, Urine Glucose [...] (Auto) 76.4 H, Lymph % (Auto) 9.5L, [place] % (Auto) 11.4 H, Eos % (Auto) [...] the right lung base. Reading Location: [facility]1 Echocardiogram 03/04/25 20:08 Interpretation Summary [...] in right lung base aeration. Reading Location: [place] [address] Charges/Coding Addendum Addendum: Total time of the [...] imagingis 35 minutes. Visit Charges Inpatient E&M: 47435 Subs Hosp L3 03/05/25 4786 <Electronically signed by Deric Lantigua MD> Cosigner Signature (if applicable): CC: ~ Signed [facility] Work Phone: 1(732) 994-876707-17-2025 Progress note [facility] Medical Records Department [address] [place] [address] Progress Note - Hospitalist 03/05/25 0719 MR#: [id number] Acct: [id number] Name: PEDRO HILLMAN Rep #:[id number] : 1945 80 From: Deric mSith PCP: Dr. Tonio Fajardo, DO Status:ADM IN Location: [place] [address] Reason for Visit Chief Complaint: SOB. Objective [...] 78.1 H, Lymph % (Auto) 10.1 L, [place] % (Auto) 9.1, Eos % (Auto) 1.6, [...] Clarity Cloudy, Urine pH 6.5, Ur Specific [place] 1.010, Urine Protein 100 H, Urine Glucose [...] (Auto) 76.4 H, Lymph % (Auto) 9.5L, [place] % (Auto) 11.4 H, Eos % (Auto) [...] in right lung base aeration. Reading Location: [place] [address] Rhythm Strip Rhythm Strip: Atrial flutter Rate: [...] hematuria: (8) Atherosclerosis of coronary artery of [place] heart without angina pectoris: QUALIFIERS: Coronary Disease-Associated Artery/Lesion type: nativeartery Qualified Code(s): I25.10 - Atherosclerotic heart disease of [place] coronary artery without angina pectoris (9) Overweight [...] pleural effusion and bibasilar [facility] Maintain metoprolol and lisinopril as before. 03/04: Heart failure core measures including intake and output, fluid restrictionless than 1500 mL, daily weight monitoring, kidney and electrolytes monitoring. On furosemide 40 mg twice daily. Serialtroponins 44, 45 and 42 therefore no significant delta change. ACS ruled out. Tax Agent is consulted. Repeat proBNP is elevated but it does not reflect treatment response as it should not be ordered for that. Clinically patient is feeling better with improvement in shortness of breath. 2D echo 03/05 reported EF 55%, PASP 42 mmHg with moderate TR, moderate CO and mild PI. 2. EKG evidence of Atrial Flutter; with Rapid Ventricular Response of ~117 bpm even after being treated with IV Cardizem bolus probably precipitating CHF exacerbation: Patient already on apixaban patient had digoxin. TSH 3.7 normal. Twelve-lead EKG individually reviewed and shows atrial flutter 2 is to 1 conduction. Later on irregular variable conduction on child monitor 3. CKD; stage IIIb with hyperkalemia, [...] Clarity Cloudy, Urine pH 6.5, Ur Specific [place] 1.010, Urine Protein 100 H, Urine Glucose [...] (Auto) 76.4 H, Lymph % (Auto) 9.5L, [place] % (Auto) 11.4 H, Eos % (Auto) [...] the right lung base. Reading Location: [facility]1 Echocardiogram 03/04/25 20:08 Interpretation Summary [...] in right lung base aeration. Reading Location: [place] [address] Charges/Coding Addendum Addendum: Total time of the [...] imagingis 35 minutes. Visit Charges Inpatient E&M: 42306 Subs Hosp 03/05/25 1550 Cosigner Signature (if applicable): CC: ~ Signed [facility]07-17-2025 History and physical note Author Nicola Madison [facility] Note Date/Time March 05, 2025 6:22 am [facility] Medical Records Department [address] [place] [address] H&P Exam - Hospitalist 03/04/251921 MR#: [id number] Acct: [id number] Name: PEDRO HILLMAN Rep #:[id number] : 1945 80 From: Nicola Levy DO PCP: Dr. Tonio Fajardo, DO Status:ADM IN Location: [place] [id number] HPI - General General Date of Admission: [...] of COVID-19 and OA who presents to [facility] ER complaining of SOB. Mr. Hillman reports [...] ~53% with moderate mitral annular calcification and zyik-we-lotsnwui (~1-2+) mitral valve insufficiency with a pulmonary [...] to extend beyond 2 midnights. [facility] Medical History Other persistent atrial fibrillation New onset atrial flutter DIMA Wears hearing aid in both ears Former smoker Coronary artery disease Peripheral vascular occlusive disease BPH (benign prostatic hyperplasia) Chronic kidney disease, stage 3 Atherosclerosis of coronary artery of [place] heart without angina pectoris Hyperlipidemia Lower extremity [...] 78.1 H, Lymph % (Auto) 10.1 L, [place] % (Auto) 9.1, Eos % (Auto) 1.6, [...] at the right lung base. Reading Location: [facility] Assessment & Plan Assessment/Plan (1) CHF exacerbation: QUALIFIERS: Heart failure type: unspecified Qualified Code(s): I50.9 - Heart failure, unspecified (2) Atrial flutter with rapid ventricular response: (3) Chronic anticoagulation: (4) Elevated troponin: (5) Hyperkalemia: (6) Pleural effusion on right: (7) Acute cystitis with hematuria: (8) Atherosclerosis of coronary artery of [place] heart without angina pectoris: QUALIFIERS: Coronary Disease-Associated Artery/Lesion type: nativeartery Qualified Code(s): I25.10 - Atherosclerotic heart disease of [place] coronary artery without angina pectoris (9) Overweight [...] LVEF. Serialize troponin. Finally, we will consult [facility] see this patient on rounds [...] 75 minutes. Charges/Coding Visit Charges Inpatient E&M: 08220 Init Hosp L3 03/05/25 0622 <Electronically signed by Nicola Lindsey DO> Cosigner Signature (if applicable): CC: Dr. Nicola Lindsey DO; Dr. Tonio Fajardo DO~ Signed [facility] Work Phone: 1([phone]) 765-579507-17-2025 History and physical note [facility] Medical Records Department [address] [place] [address] H&P Exam - Hospitalist 03/04/251921 MR#: [id number] Acct: [id number] Name: PEDRO HILLMAN Rep #:[id number] : 1945 80 From: Nicola Levy DO PCP: Dr. Tonio Fajardo DO Status:ADM [facility] HPI - General General Date [...] of COVID-19 and OA who [facility] ERcomplaining of SOB. Mr. Hillman reports his [...] ~53% with moderate mitral annular calcification and gzeo-bm-bowvqrwb (~1-2+) mitral valve insufficiency with a pulmonary [...] to extend beyond 2 midnights. [facility] Medical History Other persistent atrial fibrillation New onset atrial flutter COVID Wears hearing aid in both ears Former smoker Coronary artery disease Peripheral vascular occlusive disease BPH (benign prostatic hyperplasia) Chronic kidney disease, stage 3 Atherosclerosis of coronary artery of [place] heart without angina pectoris Hyperlipidemia Lower extremity [...] 78.1 H, Lymph % (Auto) 10.1 L, [place] % (Auto) 9.1, Eos % (Auto) 1.6, [...] at the right lung base. Reading Location: [place] [address] Assessment & Plan Assessment/Plan (1) CHF exacerbation: QUALIFIERS: Heart failure type: unspecified Qualified Code(s): I50.9 - Heart failure, unspecified (2) Atrial flutter with rapid ventricular response: (3) Chronic anticoagulation: (4) Elevated troponin: (5) Hyperkalemia: (6) Pleural effusion on right: (7) Acute cystitis with hematuria: (8) Atherosclerosis of coronary artery of [place] heart without angina pectoris: QUALIFIERS: Coronary Disease-Associated Artery/Lesion type: nativeartery Qualified Code(s): I25.10 - Atherosclerotic heart disease of [place] coronary artery without angina pectoris (9) Overweight [...] LVEF. Serialize troponin. Finally, we will consult [facility] see this patient on rounds [...] 75 minutes. Charges/Coding Visit Charges Inpatient E&M: 39273 Init Hosp L3 03/05/25 0622 Cosigner Signature (if applicable): CC: Dr. Nicola Lindsey DO; Dr. Tonio Fajardo DO~ Signed [facility]07-17-2025 Radiology Diagnostic study note [facility] Imaging Services [address] [place], [place] [id number] Chest 1 View (Portable) MR#: [id number] Acct: [id number] Name: PEDRO HILLMAN Rep #: [id number] : 1945 M 80 From: Regi Babb MD PCP: Dr. Tonio Fajardo DO Status: ADM IN Study:Chest 1 View (Portable) Date of Exam: 03/05/25 Exam# [id number] Ordering Dr: Nicola Mukherjee DO PROCEDURE: CHEST [...] Lindsey DO; Dr. Tonio Fajardo DO ~ Financial Operations Analyst: Signed [facility]07-16-2025 Evaluation note* Diagnosis Onset Date Resolution Status [...] 042024 7:57pm Atherosclerosis of coronary artery of [place] heart without angina pectoris chronic March 04, 2025 7:57pm CHF exacerbation chronic February 7:57pm Hypertension chronic March 04, 2 025 7:57pm [facility] Work Phone: 1(386) 850-607807-16-2025 Evaluation note* Diagnosis Onset Date Resolution Status [...] 042024 7:57pm Atherosclerosis of coronary artery of [place] heart without angina pectoris chronic March 04, [...] pass graft 2013 March 17, 2025 12:51pm [facility] Work Phone: 1(643) 550-848707-16-2025 Evaluation note* Diagnosis Onset Date Resolution Status [...] 042024 7:57pm Atherosclerosis of coronary artery of [place] heart without angina pectoris chronic March 04, [...] aortocoronary by pass graft 2012April 05 7:55pm [facility] Work Phone: 1(346) 786-924607-16-2025 Evaluation note* Diagnosis Onset Date Resolution Status [...] 042024 7:57pm Atherosclerosis of coronary artery of [place] heart without angina pectoris chronic March 04, [...] cardiac pacemaker acute April 10, 2025 11:14am [facility] Work Phone: 1(204) 407-737007-16-2025 Evaluation note* Diagnosis Onset Date Resolution Status [...] 042024 7:57pm Atherosclerosis of coronary artery of [place] heart without angina pectoris chronic March 04, [...] infection) resolv ed April 10, 2025 6:33pm [facility] Work Phone: [phone]) 849-285807-16-2025 Evaluation note* Diagnosis Onset Date Resolution Status [...] 2025 7:57pm Atherosclerosis of coronary artery of [place] heart without angina pectoris chronic March 04, [...] te April 10, 2025 6:33pm Debility acute [place] 22nd, 2 025 6:33pm History of lung [...] 17, 2025 6:19pm Hyperlipidemia chronic March 6:19pm [facility] Work Phone: 1(101) 367-216107-16-2025 Evaluation note* Diagnosis Onset Date Resolution Status [...] 2025 7:57pm Atherosclerosis of coronary artery of [place] heart without angina pectoris chronic March 04, [...] 3b acute April 10 6:33pm Debility acute [place] 22nd, 2 025 6:33pm History of lung [...] wi th hypoxia resolved April 10 6:33pm DAIRUSZ (acute kidney injury) resolved April 10, 2025 [...] 1:48pm Syncope acute April 20, 2025 1:48pm [facility] Work Phone: 1(995) 349-924907-16-2025 Evaluation note* Diagnosis Onset Date Resolution Status [...] 2025 7:57pm Atherosclerosis of coronary artery of [place] heart without angina pectoris chronic March 04, [...] 7:21pm Syncope inactive April 23, 2025 7:21pm [place] [employer] Work Phone: 1([phone]) 169-885407-16-2025 Evaluation note* Diagnosis Onset Date Resolution Status [...] 2025 7:57pm Atherosclerosis of coronary artery of [place] heart without angina pectoris chronic March 04, [...] cardiac pacemaker acute April 28, 2025 10:17am [place] [employer] [facility] Work Phone: [phone]) 643-238807-16-2025 Evaluation note* Diagnosis Onset Date Resolution Status [...] 2025 7:57pm Atherosclerosis of coronary artery of [place] heart without angina pectoris chronic March 04, [...] 2025 10:17am Atrial fibrillation acute 2024 2:41pm [facility] Work Phone: 1([phone]) 253-316207-16-2025 Discharge summary Author Chris Ochoa [facility] Note Date/Time March 04, 2025 7:26 pm [facility] Medical Records Department [address] [place] [address] Emergency Department Summary 03/04/25 MR#: [id number] Acct: [id number] Name: PEDRO HILLMAN Rep #:[id number] : 1945 80 From: Chris Ochoa MD [...] similar symptoms: Yes Recent Illness/Hospitalization: No PFSH [facility] Medical History Other persistent atrial fibrillation New onset atrial flutter COVID Wears hearing aid in both ears Former smoker Coronary artery disease Peripheral vascular occlusive disease BPH (benign prostatic hyperplasia) Chronic kidney disease, stage 3 Atherosclerosis of coronary artery of [place] heart without angina pectoris Hyperlipidemia Lower extremity [...] signs. Back nontender. Movingall 4 extremities. 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 Calves nontender without edema or cords. [...] 78.1 H Lymph % (Auto) 10.1 L [place] % (Auto) 9.1 Eos % (Auto) 1.6 [...] at the right lung base. Reading Location: [facility] Chest x-ray, 2 views, AP and [...] COPD, Chronic kidneydisease, Chronic anticoagulation Disposition Disposition: [facility] What to do if you have Problems For any increased pain, shortness of breath, bleeding, nausea or vomiting, chestpain, or any unexpected problems, contact your Primary Care Provider. Call [facility] ([phone]) or report to the closest Emergency Room. Call 911 if necessary. 03/04/251925 <Electronically signed by Chris Ochoa MD> Cosigner Signature (if applicable): CC: Dr. Tonio Fajardo DO ~ Signed [facility] Work Phone: 1([phone]) 229-891307-16-2025 Discharge summary [facility] Medical Records Department [address] [place] [address] Emergency Department Summary 03/04/25 MR#: [id number] Acct: [id number] Name: PEDRO HILLMAN Rep #:[id number] : 1945 80 From: Chris Ochoa MD [...] stage 3 Atherosclerosis of coronary artery of [place] heart without angina pectoris Hyperlipidemia Lower extremity [...] signs. Back nontender. Movingall 4 extremities. 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 Calves nontender without edema or cords. [...] 78.1 H Lymph % (Auto) 10.1 L [place] % (Auto) 9.1 Eos % (Auto) 1.6 [...] at the right lung base. [facility], 2 views, AP [...] Chronic anticoagulation Disposition Disposition: Acute Care Hospital [facility] What to do if you have Problems For any increased pain, shortness of breath, bleeding, nausea or vomiting, chestpain, or any unexpected problems, contact your Primary Care Provider. Call [facility] ([phone]) or report tothe closest Emergency Room. Call 911 if necessary. 03/04/251925 Cosigner Signature (if applicable): CC: Dr. Tonio Fajardo DO ~ Signed [facility]07-16-2025 Radiology Diagnostic study note [facility] Imaging Services [address] [place] [address] Chest PA and Lateral MR#: [id number] Acct: [id number] Name: PEDRO HILLMAN Rep #: [id number] : 1945 M 80 From: Tom Flores MD PCP: Dr. Tonio Fajardo DO Status: PRE ER Study:Chest PA and Lateral Date of Exam: 03/04/25 Exam# [id number] Ordering Dr: Camila Ochoa MD PROCEDURE: CHEST [...] at the right lung base. Reading Location: [place] [address] CC: Dr. Chris Ochoa MD; Dr. Tonio Fajardo DO ~ Financial Operations Analyst: Signed [facility]07-16-2025 Discharge summary Author Chris Ochoa [facility] Note Date/Time March 04, 2025 7:26 pm [facility] Medical Records Department [address] [place] [address] Emergency Department Summary 03/04/25 MR#: [id number] Acct: [id number] Name: PEDRO HILLMAN Rep #:[id number] : 1945 80 From: Chris Ochoa MD [...] stage 3 Atherosclerosis of coronary artery of [place] heart without angina pectoris Hyperlipidemia Lower extremity [...] signs. Back nontender. Movingall 4 extremities. 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 Calves nontender without edema or cords. [...] 78.1 H Lymph % (Auto) 10.1 L [place] % (Auto) 9.1 Eos % (Auto) 1.6 [...] at the right lung base. Reading Location: [place] [address] Chest x-ray, 2 views, AP and lateral, [...] Chronic anticoagulation Disposition Disposition: Acute Care Hospital [facility] What to do if you have Problems For any increased pain, shortness of breath, bleeding, nausea or vomiting, chestpain, or any unexpected problems, contact your Primary Care Provider. Call [facility] ([phone]) or report to the closest Emergency Room. Call 911 if necessary. 03/04/251925 <Electronically signed by Chris Ochoa MD> Cosigner Signature (if applicable): CC: Dr. Tonio Fajardo, DO ~ Signed [facility] Work Phone: 1(970) 674-765603-20-2025 Evaluation note* Diagnosis Onset Date Resolution Status [...] 2025 7:57pm Atherosclerosis of coronary artery of [place] heart without angina pectoris chronic March 04, 2025 7:57pm CHF exacerbation chronic February 7:57pm [facility] Work Phone: 1([phone]) 677-916803-13-2025 Radiology Diagnostic study note [facility] Imaging Services [address] [place] [address] CT Chest AND Abd W/ Contrast MR#: [id number] Acct: [id number] Name: PEDRO HILLMAN Rep #: [id number] : 1945 M 79 From: Tom Flores MD PCP: Dr. Tonio Fajardo, DO Status: REG CLI Study:CT Chest AND Abd W/ Contrast Date of Ex am: 10/30/24 Exam# [id number] Ordering Dr: Frantz Zamora MD PROCEDURE: CT [...] use of iterative reconstruction technique). Reading Location: [id number] CC: Dr. Russ Zamora MD; Dr. Tonio Fajardo DO ~ Financial Operations Analyst: Signed [facility]02-28-2025 Procedure notey [facility] Pulmonary Services/Neurology [address] [place] [address] MR#: [id number] Acct: [id number] Name: PEDRO HILLMAN Rep #:[id number] : 1945 79 From: Tyrell Uriarte DO Referring Dr: Lorie Mart NP [employer] Status: REG CLI Location: PSN Date: Sex: M C PSN 6 Minute Walk Test 6 Minute Walk Test 6 Minute Walk Test: 6 Minute Walk Test PSN:6-Minute Walk Test Start: 10/16/24 13:24 Freq: Status: Active Protocol: RESP.6MINW Document 10/16/24 13:24 [facility] (Rec: 10/16/24 13:34 [facility] [id number]) 6 Minute Walk Test Date Performed 10/16/24 Time Performed 12:30 Height 5 ft 6 in Weight: 174 lb Weight in Pounds 174.[address]: Lorie Mart [employer]ACH[employer] Assistive device Walker used: Pre-test Oxygen Delivery [...] Dictated: 10/17/24 1004 Date Transcribed: 10/17/24 1004 Financial Operations Analyst: Dr. Tyrell Uriarte, DO Signed [facility]02-06-2025 Evaluation note* Diagnosis Onset Date Resolution Status [...] lobe of right lung chronic 2024 2:10pm [facility] Work Phone: 1([phone]) 406-662902-06-2025 Evaluation note* Diagnosis Onset Date Resolution Status [...] right lung chronic Marlon h 2024 1:24pm [facility] Work Phone: 1(409) 762-199210-20-2023 Procedure [facility] 04-18-2023 Progress note Author Joaquim Suárez [facility] April 18, 2023 7:12pm Note Date/Time April 18, 2023 3: 56pm [facility] [address] [place] [address] Progress Note - Wound Care 04/18/23 1549 MR#: [id number] Acct: [id number] Name: PEDRO HILLMAN Rep #:[id number] : 1945 78 From: Joaquim BORJAS PCP: [...] Recorded Date Recorded By Document 04/02/23 11:24 [id number] 04/02/23 11:25 Document 04/18/23 13:24 [facility] [id number] 04/18/23 13:30 [facility] 04/02/23 04/18/23 11:24 13:24 - Today's Visit Information Type of service Follow-up Visit Follow-up Visit (Physician/ASSISTANT PROFESSOR OF BIOLOGY (Physician/ASSISTANT PROFESSOR OF BIOLOGY ) ) Arrival Mode Ambulatory,Cane Ambulatory,Cane Transfer [...] Recorded Date Recorded By Document 04/18/23 13:24 [facility] [id number] 04/18/23 13:30 [facility] 04/18/23 13:24 Wound Center Nurse 1 [...] Attached -Granulation Amt Large (67-100%) -Granulation Quality [place] -Slough/Fibrin No -Necrosis Amt None Present (0 [...] Recorded Date Recorded By Document 04/02/23 11:42 [id number] 04/02/23 11:53 Document 04/18/23 14:03 [id number] 04/18/23 14:04 04/02/23 04/18/23 11:42 14:03 Wound [...] Recorded Date Recorded By Document 04/02/23 11:54 [id number] 04/02/23 11:54 Document 04/18/23 14:24 RB [id number] 04/18/23 14:25 RB 04/02/23 04/18/23 11:54 14:24 [...] Diabetes mellitus nursing home insulin use: with nursing home use Qualified Code(s): E11.42 - Type 2 diabetes mellitus with diabetic polyneuropathy; Z79.4 - FDC (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 of insulin PLAN: Educated the [...] Cosigner Signature (if applicable): CC: ~ Signed [facility] Work Phone: 1(931) 790-408608-20-2023 Progress note Author Bonny Glynn [facility] April 07, 2023 10:44pm Note Date/Time April 02, 2023 12 :35pm [facility] Wound Healing Center [address] [place] [address] Progress Note - Wound Care 04/02/23 1235 MR#: [id number] Acct: [id number] Name: PEDRO HILLMAN Rep #:[id number] : 1945 78 From: Bonny garcia 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 Tonio Fajardo, DO Status:REG RCR [...] 11:24 04/02/23 11:24 Charges/Coding Procedures Integumentary 111xxx-113xx: 19617 Mihaela subq tissue 20 sq cm/< Debridement [...] Date Recorded By Document 04/02/23 11:24 PL [id number] 04/02/23 11:25 PL 04/02/23 11:24 - Today's Visit Information Type of service Follow-up Visit (Physician/ASSISTANT PROFESSOR OF BIOLOGY ) Arrival Mode Ambulatory,Cane Transfer Assistance None [...] Date Recorded By Document 04/02/23 11:42 DORA [id number] 04/02/23 11:53 DORA 04/02/23 11:42 Wound Center [...] Recorded Date Recorded By Document 04/02/23 11:54 [id number] 04/02/23 11:54 04/02/23 11:54 Wound Care Center [...] that the wound center will have a inventory administrator, will have the patient see him for further evaluation and treatment. Follow up two weeks. Call or come in sooner if develop any questions or concerns. 04/07/23 1337 <Electronically signed by Bonny Glynn NP [employer]> Cosigner Signature (if applicable): CC: ~ Signed [facility] Work Phone: 1(195) 128-545907-17-2023 Progress note Author Bonny Glynn [facility] March 05, 2023 1:06pm Note Date/Time March 05, 2023 12:2 9pm [facility]aling [facility] [address] [place] [address] Progress Note - Wound Care 03/05/23 1226 MR#: [id number] Acct: [id number] Name: PEDRO HILLMAN Rep #:[id number] : 1945 78 From: Bonny garcia NP [employer] PCP: Dr. Tonio Fajardo, DO Status:REG RCR [...] Method Room Air Charges/Coding Procedures Integumentary 111xxx-113xx: 59743 Mihaela subq tissue 20 sq cm/< Debridement [...] Recorded Date Recorded By Document 02/19/23 13:34 [id number] 02/19/23 13:36 Document 03/05/23 11:26 KW [id number] 03/05/23 11:29 KW 02/19/23 03/05/23 13:34 11:26 - Today's Visit Information Type of service Follow-up Visit Follow-up Visit (Physician/ASSISTANT PROFESSOR OF BIOLOGY (Physician/ASSISTANT PROFESSOR OF BIOLOGY ) ) Arrival Mode Ambulatory Ambulatory,Cane Accompanied [...] Recorded Date Recorded By Document 02/19/23 13:34 [id number] 02/19/23 13:36 Document 03/05/23 11:26 [id number] 03/05/23 11:29 02/19/23 03/05/23 13:34 11:26 Wound [...] Large (67-100%) Small (1-33%) -Granulation Quality [place] -Slough/Fibrin No -Necrosis Amt Small (1-33%) -Structure [...] Recorded Date Recorded By Document 02/19/23 13:37 [id number] 02/19/23 13:39 Document 03/05/23 11:37 [id number] 03/05/23 11:46 02/19/23 03/05/23 13:37 11:37 Wound [...] Date Recorded By Document 02/19/23 13:43 MW [id number] 02/19/23 13:44 MW Document 03/05/23 11:53 [facility] [id number] 03/05/23 11:55 BM 02/19/23 03/05/23 13:43 11:53 [...] 1306 <Electronically signed by Bonny Glynn NP [employer]> Cosigner Signature (if applicable): CC: ~ Signed [facility] Work Phone: 1(595) 505-100107-03-2023 Progress note Author Bonny Glynn [facility] February 19, 2023 2:23pm Note Date/Time February 19, 2023 2:16p m [facility] [address] [place] [address] Progress Note - Wound Care 02/19/23 1412 MR#: [id number] Acct: [id number] Name: PEDRO HILLMAN Rep #:[id number] : 1945 78 From: Bonny garcia NP [employer] PCP: Dr. Tonio Fajardo, DO Status:REG RCR [...] 13:34 02/19/23 13:34 Charges/Coding Procedures Integumentary 111xxx-113xx: 24127 Mihaela subq tissue 20 sq cm/< Debridement [...] Date Recorded By Document 02/19/23 13:34 DORA [id number] 02/19/23 13:36 DORA 02/19/23 13:34 - Today's Visit Information Type of service Follow-up Visit (Physician/ASSISTANT PROFESSOR OF BIOLOGY ) Arrival Mode Ambulatory Patient Requires Transmission-Based [...] Date Recorded By Document 02/19/23 13:34 DORA [id number] 02/19/23 13:36 02/19/23 13:34 Wound Center Nurse [...] Date Recorded By Document 02/19/23 13:37 DORA [id number] 02/19/23 13:39 02/19/23 13:37 Wound Center Nurse [...] Date Recorded By Document 02/19/23 13:43 MW [id number] 02/19/23 13:44 MW 02/19/23 13:43 Wound Care [...] 02/19/23 1423 <Electronically signed by Bonny Glynn [employer]ACH[employer]> Cosigner Signature (if applicable): CC: ~ Signed [facility] Work Phone: 1([phone]) 290-395806-19-2023 Progress note Author Bonny Glynn [facility] February 05, 2023 2:37pm Note Date/Time February 05, 2023 1:59 pm [facility] [address] [place] [address] Progress Note - Wound Care 02/05/23 1359 MR#: [id number] Acct: [id number] Name: PEDRO HILLMAN Rep #:[id number] : 1945 78 From: Bonny garcia 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 Tonio Fajardo, DO Status:REG RCR Location: History of Present Illness Date of Service: 02/05/23 Chief Complaint: right medial foot ulcer History of Wound: This 78-year-old male returns to the wound healing clinic for reoccurrence of a right medial foot ulcer. Wound care has been Moistened Cass covered with Celina SAP dressing. Patient diabetic neuropathic. Patient dealing [...] Method Room Air Charges/Coding Procedures Integumentary 111xxx-113xx: 56575 Mihaela subq tissue 20 sq cm/< Debridement [...] Date Recorded By Document 01/22/23 13:45 DL [id number] 01/22/23 13:48 DL Document 02/05/23 13:10 BMF [id number] 02/05/23 13:15 BMF 01/22/23 02/05/23 13:45 13:10 - Today's Visit Information Type of service Follow-up Visit Follow-up Visit (Physician/ASSISTANT PROFESSOR OF BIOLOGY (Physician/ASSISTANT PROFESSOR OF BIOLOGY ) ) Arrival Mode Ambulatory Ambulatory,Cane Transfer [...] Date Recorded By Document 01/22/23 13:45 DL [id number] 01/22/23 13:48 DL Document 02/05/23 13:10 [facility] [id number] 02/05/23 13:15 [facility] 01/22/23 02/05/23 13:45 13:10 Wound Center [...] Present (0 Large (67-100%) %) -Granulation Quality [place] -Slough/Fibrin Yes -Necrosis Amt Small (1-33%) Small [...] Recorded Date Recorded By Document 01/22/23 14:22 [id number] 01/22/23 14:23 01/22/23 14:22 Wound Center Nurse [...] Date Recorded By Document 01/22/23 14:30 DL [id number] 01/22/23 14:31 DL Document 02/05/23 13:49 [facility] [id number] 02/05/23 13:49 [facility] 01/22/23 02/05/23 14:30 13:49 Wound Care [...] 1437 <Electronically signed by Bonny Glynn NP [employer]> Cosigner Signature (if applicable): CC: ~ Signed [facility] Work Phone: [phone]) 961-122706-05-2023 Progress note Author Bonny Glynn [facility] January 22, 2023 3:47pm Note Date/Time January 22, 2023 3:31p m [facility] [address] [place] [address] Progress Note - Wound Care 01/22/23 1529 MR#: [id number] Acct: [id number] Name: PEDRO HILLMAN Rep #:[id number] : 1945 78 From: Bonny garcia 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 Tonio Fajardo, DO Status:REG RCR Location: History of Present Illness Date of Service: 01/22/23 Chief Complaint: right medial foot ulcer History of Wound: This 78-year-old male returns to the wound healing clinic for reoccurrence of a right medial foot ulcer. Wound care has been Moistened Cass covered with Celina SAP dressing. Patient diabetic neuropathic. Patient dealing [...] 13:45 01/22/23 13:45 Charges/Coding Procedures Integumentary 111xxx-113xx: 86467 Mihaela subq tissue 20 sq cm/< Debridement [...] Date Recorded By Document 01/22/23 13:45 DL [id number] 01/22/23 13:48 DL 01/22/23 13:45 WC - Today's Visit Information Type of service Follow-up Visit (Physician/ASSISTANT PROFESSOR OF BIOLOGY ) Arrival Mode Ambulatory Transfer Assistance None [...] Date Recorded By Document 01/22/23 13:45 DL [id number] 01/22/23 13:48 DL 01/22/23 13:45 Wound Center [...] Date Recorded By Document 01/22/23 14:22 DORA [id number] 01/22/23 14:23 DORA 01/22/23 14:22 Wound Center [...] Date Recorded By Document 01/22/23 14:30 DL [id number] 01/22/23 14:31 DL 01/22/23 14:30 Wound Care [...] 1547 <Electronically signed by Bonny Glynn NP [employer]> Cosigner Signature (if applicable): CC: ~ Signed [facility] Work Phone: 1(119) 458-462705-22-2023 Progress note Author Bonny Glynn [facility] January 08, 2023 2:17pm Note Date/Time January 08, 2023 2:10p m [facility] [address] [place] [address] Progress Note - Wound Care 01/08/23 1407 MR#: [id number] Acct: [id number] Name: PEDRO HILLMAN Rep #:[id number] : 1945 77 From: Bonny garcia NP [employer] PCP: Dr. Tonio Fajardo, DO Status:REG RCR Location: History of Present Illness Date of Service: 01/08/23 Chief Complaint: right medial foot ulcer History of Wound: This 77-year-old male returns to the wound healing clinic for reoccurrence of a right medial foot ulcer. Wound care has been Moistened Cass covered with Celina SAP dressing. Patient diabetic neuropathic. Patient dealing [...] 14:53 01/08/23 13:37 Charges/Coding Procedures Integumentary 111xxx-113xx: 32703 Mihaela subq tissue 20 sq cm/< Debridement [...] Date Recorded By Document 12/18/22 13:20 PL [id number] 12/18/22 13:27 PL Document 12/25/22 14:53 [id number] 12/25/22 14:54 Document 01/08/23 13:37 [place] [id number] 01/08/23 13:39 AK 12/18/22 12/25/22 01/08/23 13:20 14:53 13:37 - Today's Visit Information Type of service Follow-up Visit Follow-up Visit Follow-up Visit (Physician/ASSISTANT PROFESSOR OF BIOLOGY (Physician/ASSISTANT PROFESSOR OF BIOLOGY (Physician/ASSISTANT PROFESSOR OF BIOLOGY ) ) ) Arrival Mode Ambulatory Ambulatory [...] Date Recorded By Document 12/18/22 13:20 PL [id number] 12/18/22 13:27 PL Document 12/25/22 14:53 [id number] 12/25/22 14:54 Document 01/08/23 13:37 [place] [id number] 01/08/23 13:39 AK 12/18/22 12/25/22 01/08/23 13:20 [...] (34-66%) Small (1-33%) Medium (34-66%) -Granulation Quality [place] Pale -Slough/Fibrin No Yes Yes -Necrosis Amt [...] Recorded Date Recorded By Document 12/18/22 13:51 [id number] 12/18/22 13:53 Document 12/25/22 15:00 [id number] 12/25/22 15:10 Document 01/08/23 14:01 [id number] 01/08/23 14:02 12/18/22 12/25/22 01/08/23 13:51 15:00 [...] Date Recorded By Document 12/18/22 14:07 PL [id number] 12/18/22 14:07 PL Document 12/25/22 15:20 DL [id number] 12/25/22 15:20 DL 12/18/22 12/25/22 14:07 15:20 [...] 1417 <Electronically signed by Bonny Glynn NP [employer]> Cosigner Signature (if applicable): CC: ~ Signed [facility] Work Phone: 1(469) [phone] Ochoa [facility] December 31, 2022 12:58am Note Date/Time December 30, 2022 11:08 pm [facility] Medical Records Department [address] [place] [address] Emergency Department Summary 12/30/22 MR#: [id number] Acct: [id number] Name: PEDRO HILLMAN Rep #:[id number] : 1945 77 From: Chris Ochoa MD [...] History Anemia Atherosclerosis of coronary artery of [place] heart without angina pectoris BPH (benign prostatic [...] extremities. Nontender. No edema. No cellulitis. 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 Normal dorsi plantarflexion. Neurologically is awake [...] 83.3 H Lymph % (Auto) 6.4 L [place] % (Auto) 9.1 Eos % (Auto) 0.2 [...] Color Urine Clarity Urine pH Ur Specific [place] Urine Protein Urine Glucose (UA) Urine Ketones Urine Occult Blood Urine Nitrite Urine Bilirubin Urine Urobilinogen Ur Leukocyte Esterase Urine RBC Urine WBC Ur Squamous Epith Cells Urine Bacteria Urine Mucus 12/30/22 12/30/22 22:50 23:59 WBC RBC Hgb Hct MCV MCH MCHC RDW Std Deviation RDW Coeff of Reggie Plt Count MPV Immature Gran % (Auto) Neut % (Auto) Lymph % (Auto) [place] % (Auto) Eos % (Auto) Baso % [...] Clarity Clear Urine pH 7.0 Ur Specific [place] 1.005 Urine Protein 100 H Urine Glucose [...] 0:41 EDT Reading Location ID and State: [facility] / [place] Tel , Service support , Chest x-ray, [...] your Primary Care Provider. Call [facility] ([phone]) or report to the closest Emergency Room. Call 911 if necessary. 12/31/22 005 <Electronically signed by Chris Ochoa MD> Cosigner Signature (if applicable): CC: Dr. Tonio Fajardo DO ~ Signed [facility] Work Phone: 1(360) 660-777205-08-2023 Progress note Author Bonny Glynn [facility] December 25, 2022 3:36pm Note Date/Time December 25, 2022 3:36pm [facility] [address] [place] [address] Progress Note - Wound Care 12/25/22 1531 MR#: [id number] Acct: [id number] Name: PEDRO HILLMAN Rep #:[id number] : 1945 77 From: Bonny garcia 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 Tonio Fajardo DO Status:REG RCR Location: History of Present Illness Date of Service: 12/25/22 Chief Complaint: right medial foot ulcer History of Wound: This 77-year-old male returns to the wound healing clinic for reoccurrence of a right medial foot ulcer. Wound care has been Moistened Cass covered with Celina SAP dressing. Patient diabetic neuropathic. Patient dealing [...] 14:53 12/25/22 14:53 Charges/Coding Procedures Integumentary 111xxx-113xx: 03087 Mihaela subq tissue 20 sq cm/< Debridement [...] Recorded Date Recorded By Document 12/18/22 13:20 [id number] 12/18/22 13:27 Document 12/25/22 14:53 [id number] 12/25/22 14:54 12/18/22 12/25/22 13:20 14:53 - Today's Visit Information Type of service Follow-up Visit Follow-up Visit (Physician/ASSISTANT PROFESSOR OF BIOLOGY (Physician/ASSISTANT PROFESSOR OF BIOLOGY ) ) Arrival Mode Ambulatory Ambulatory Transfer [...] Date Recorded By Document 12/18/22 13:20 KIM [id number] 12/18/22 13:27 Document 12/25/22 14:53 [id number] 12/25/22 14:54 12/18/22 12/25/22 13:20 14:53 Wound [...] Amt Medium (34-66%) Small (1-33%) -Granulation Quality [place] -Slough/Fibrin No Yes -Necrosis Amt Medium (34-66%) [...] Recorded Date Recorded By Document 12/18/22 13:51 [id number] 12/18/22 13:53 Document 12/25/22 15:00 [id number] 12/25/22 15:10 12/18/22 12/25/22 13:51 15:00 Wound [...] Date Recorded By Document 12/18/22 14:07 PL [id number] 12/18/22 14:07 PL Document 12/25/22 15:20 DL [id number] 12/25/22 15:20 DL 12/18/22 12/25/22 14:07 15:20 [...] 1536 <Electronically signed by Bonny Glynn NP [employer]> Cosigner Signature (if applicable): CC: ~ Signed [facility] Work Phone: 1(160) 657-843305-01-2023 Progress [facility] 18, 2022 2:23pm Note Date/Time December 18, 2022 2:23pm [facility] [address] [place] [address] Progress Note - Wound Care 12/18/22 1419 MR#: [id number] Acct: [id number] Name: PEDRO HILLMAN Rep #:[id number] : 1945 77 From: Bonny Gillis 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 Tonio Fajardo, DO Status:REG RCR Location: History of Present Illness Date of Service: 12/18/22 Chief Complaint: right medial foot ulcer History of Wound: This 77-year-old male returns to the wound healing clinic for reoccurrence of a right medial foot ulcer. Wound care has been Moistened Cass covered with Celina SAP dressing. Patient diabetic neuropathic. Patient dealing [...] 13:20 12/18/22 13:20 Charges/Coding Procedures Integumentary 111xxx-113xx: 26578 Mihaela subq tissue 20 sq cm/< Debridement [...] Date Recorded By Document 12/18/22 13:20 PL [id number] 12/18/22 13:27 PL 12/18/22 13:20 - Today's Visit Information Type of service Follow-up Visit (Physician/ASSISTANT PROFESSOR OF BIOLOGY ) Arrival Mode Ambulatory Transfer Assistance None [...] Date Recorded By Document 12/18/22 13:20 KIM [id number] 12/18/22 13:27 KIM 12/18/22 13:20 Wound Center [...] Serosanguineous -Granulation Amt Medium (34-66%) -Granulation Quality [place] -Slough/Fibrin No -Necrosis Amt Medium (34-66%) -Necrotic [...] Date Recorded By Document 12/18/22 13:51 DORA [id number] 12/18/22 13:53 DORA 12/18/22 13:51 Wound Center [...] Date Recorded By Document 12/18/22 14:07 KIM [id number] 12/18/22 14:07 KIM 12/18/22 14:07 Wound Care [...] 1423 <Electronically signed by Bonny Glynn NP [employer]> Cosigner Signature (if applicable): CC: ~ Signed [facility] Work Phone: 1(995) [phone] Progress note Author Bonnyparris Glynn [facility] December 14, 2022 2:56pm Note Date/Time December 11, 2022 3:2 7pm [facility] [address] [place] [address] Progress Note - Wound Care 12/11/22 1527 MR#: [id number] Acct: [id number] Name: PEDRO HILLMAN Rep #:[id number] : 1945 77 From: Bonny garcia NP [employer] PCP: Dr. Tonio Fajardo, DO Status:REG RCR Location: History of Present Illness Date of Service: 12/11/22 Chief Complaint: right medial foot ulcer History of Wound: This 77-year-old male returns to the wound healing clinic for reoccurrence of a right medial foot ulcer. Wound care has been Moistened Cass covered with Celina SAP dressing. Patient diabetic neuropathic. Patient dealing [...] Method Room Air Charges/Coding Procedures Integumentary 111xxx-113xx: 10692 Mihaela subq tissue 20 sq cm/< Debridement [...] Date Recorded By Document 11/20/22 14:43 DL [id number] 11/20/22 14:49 DL Document 11/27/22 14:25 BMF [id number] 11/27/22 14:27 BMF Document 12/06/22 11:35 DL [id number] 12/06/22 11:39 DL Document 12/11/22 13:12 [facility] [id number] 12/11/22 13:21 BM 11/20/22 11/27/22 12/06/22 14:43 14:25 11:35 - Today's Visit Information Type of service Follow-up Visit Follow-up Visit (Physician/ASSISTANT PROFESSOR OF BIOLOGY (Physician/ASSISTANT PROFESSOR OF BIOLOGY ) ) Arrival Mode Ambulatory,Cane Ambulatory Transfer [...] Visit Information Type of service Follow-up Visit (Physician/ASSISTANT PROFESSOR OF BIOLOGY ) Arrival Mode Ambulatory,Cane Transfer Assistance None [...] Date Recorded By Document 11/20/22 14:43 DL [id number] 11/20/22 14:49 DL Document 11/27/22 14:25 [facility] [id number] 11/27/22 14:27 [facility] Document 12/06/22 11:35 DL [id number] 12/06/22 11:39 DL Document 12/11/22 13:12 [facility] [id number] 12/11/22 13:21 [facility] 11/20/22 11/27/22 12/06/22 14:43 14:25 11:35 [...] Amt Small (1-33%) Small (1-33%) -Granulation Quality [place] Pale -Slough/Fibrin -Necrosis Amt Small (1-33%) Small [...] Recorded Date Recorded By Document 11/20/22 15:00 [id number] 11/20/22 15:09 Edit Result 11/20/22 15:00 JF (1) [id number] 11/20/22 15:18 JF Edit Result 11/20/22 15:00 JF (2) [id number] 11/20/22 15:20 Document 11/27/22 14:50 [id number] 11/27/22 15:02 Document 12/06/22 11:46 [id number] 12/06/22 11:57 Document 12/11/22 13:30 [id number] 12/11/22 13:33 (1) #9 Right Inferior Hallux [...] => 08/20/27 - Product Lot Number => [id number] - Percent Used => 100 - Lot number of Saline Used => [id number] 11/20/22 11/27/22 12/06/22 15:00 14:50 11:46 Wound [...] Date 08/20/27 08/20/27 09/20/27 -Product Lot Number [id number] 015 -Percent Used 100 100 100 -Lot number of Saline Used [id number] -Bleeding Controlled with Pressure Pressure Pressure -Treatment [...] Recorded Date Recorded By Document 11/20/22 15:35 [id number] 11/20/22 15:36 Document 11/27/22 15:02 [id number] 11/27/22 15:03 Document 12/06/22 11:57 [id number] 12/06/22 11:58 Document 12/11/22 13:57 [id number] 12/11/22 13:58 11/20/22 11/27/22 12/06/22 15:35 15:02 [...] if develop any questions or concerns. 12/14/22 9916 <Electronically signed by Bonny Glynn NP [employer]> Cosigner Signature (if applicable): CC: ~ Signed [facility] Work Phone: 1(588) 595-658404-19-2023 Progress note Author Bonny Glynn [facility] December 06, 2022 12:09pm Note Date/Time December 06, 2022 12: 09pm [facility] [address] [place] [address] Progress Note - Wound Care 12/06/22 1205 MR#: [id number] Acct: [id number] Name: PEDRO HILLMAN Rep #:[id number] : 1945 77 From: Bonny garcia 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 Tonio Fajardo, DO Status:REG RCR Location: History of Present Illness Date of Service: 12/06/22 Chief Complaint: right medial foot ulcer History of Wound: This 77-year-old male returns to the wound healing clinic for reoccurrence of a right medial foot ulcer. Wound care has been Moistened Cass covered with Celina SAP dressing. Patient diabetic neuropathic. Patient dealing [...] 11:35 12/06/22 11:35 Charges/Coding Procedures Integumentary 150xxx-152xx: 79228 Skin sub graft face/nk/hf/g Debridement Note Debridement [...] Date Recorded By Document 11/20/22 14:43 DL [id number] 11/20/22 14:49 DL Document 11/27/22 14:25 [facility] [id number] 11/27/22 14:27 [facility] Document 12/06/22 11:35 DL [id number] 12/06/22 11:39 DL 11/20/22 11/27/22 12/06/22 14:43 14:25 11:35 - Today's Visit Information Type of service Follow-up Visit Follow-up Visit (Physician/ASSISTANT PROFESSOR OF BIOLOGY (Physician/ASSISTANT PROFESSOR OF BIOLOGY ) ) Arrival Mode Ambulatory,Cane Ambulatory Transfer [...] Date Recorded By Document 11/20/22 14:43 DL [id number] 11/20/22 14:49 DL Document 11/27/22 14:25 [facility] [id number] 11/27/22 14:27 [facility] Document 12/06/22 11:35 DL [id number] 12/06/22 11:39 DL 11/20/22 11/27/22 12/06/22 14:43 [...] Amt Small (1-33%) Small (1-33%) -Granulation Quality [place] Pale -Necrosis Amt Small (1-33%) Small (1-33%) [...] Recorded Date Recorded By Document 11/20/22 15:00 [id number] 11/20/22 15:09 Edit Result 11/20/22 15:00 JF (1) [id number] 11/20/22 15:18 JF Edit Result 11/20/22 15:00 (2) [id number] 11/20/22 15:20 Document 11/27/22 14:50 [id number] 11/27/22 15:02 Document 12/06/22 11:46 [id number] 12/06/22 11:57 (1) #9 Right Inferior Hallux [...] => 08/20/27 - Product Lot Number => [id number] - Percent Used => 100 - Lot number of Saline Used => [id number] 11/20/22 11/27/22 12/06/22 15:00 14:50 11:46 Wound [...] Date 08/20/27 08/20/27 09/20/27 -Product Lot Number [id number] 013 015 -Percent Used 100 100 100 -Lot number of Saline Used [id number] -Bleeding Controlled with Pressure Pressure Pressure -Treatment [...] Date Recorded By Document 11/20/22 15:35 DL [id number] 11/20/22 15:36 DL Document 11/27/22 15:02 [id number] 11/27/22 15:03 JF Document 12/06/22 11:57 [id number] 12/06/22 11:58 11/20/22 11/27/22 12/06/22 15:35 15:02 [...] 1206 <Electronically signed by Bonny Glynn NP [employer]> Cosigner Signature (if applicable): CC: ~ Signed [facility] Work Phone: 1(775) 327-619604-11-2023 Progress note Author Bonny Glynn [facility] November 28, 2022 5:24pm Note Date/Time November 27, 2022 3:1 4pm [facility] [place] [address] Progress Note - Wound Care 11/27/22 1513 MR#: [id number] Acct: [id number] Name: PEDRO HILLMAN Rep #:[id number] : 1945 77 From: Bonny garcia 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 Tonio Fajardo, DO Status:REG RCR Location: History of Present Illness Date of Service: 11/27/22 Chief Complaint: right medial foot ulcer History of Wound: This 77-year-old male returns to the wound healing clinic for reoccurrence of a right medial foot ulcer. Wound care has been Moistened Cass covered with Celina SAP dressing. Patient diabetic neuropathic. Patient dealing [...] 14:43 11/27/22 14:25 Charges/Coding Procedures Integumentary 150xxx-152xx: 33062 Skin sub graft face/nk/hf/g Debridement Note Debridement [...] Date Recorded By Document 11/20/22 14:43 DL [id number] 11/20/22 14:49 DL Document 11/27/22 14:25 [facility] [id number] 11/27/22 14:27 BM 11/20/22 11/27/22 14:43 14:25 WC - Today's Visit Information Type of service Follow-up Visit Follow-up Visit (Physician/ASSISTANT PROFESSOR OF BIOLOGY (Physician/ASSISTANT PROFESSOR OF BIOLOGY ) ) Arrival Mode Ambulatory,Cane Ambulatory Transfer [...] Date Recorded By Document 11/20/22 14:43 DL [id number] 11/20/22 14:49 DL Document 11/27/22 14:25 BMF [id number] 11/27/22 14:27 BMF 11/20/22 11/27/22 14:43 14:25 [...] Thickened -Granulation Amt Small (1-33%) -Granulation Quality [place] -Necrosis Amt Small (1-33%) -Necrotic Tissue Type [...] Date Recorded By Document 11/20/22 15:00 JF [id number] 11/20/22 15:09 JF Edit Result 11/20/22 15:00 JF (1) [id number] 11/20/22 15:18 JF Edit Result 11/20/22 15:00 JF (2) [id number] 11/20/22 15:20 JF Document 11/27/22 14:50 JF [id number] 11/27/22 15:02 JF (1) #9 Right Inferior [...] => 08/20/27 - Product Lot Number => [id number] - Percent Used => 100 - Lot number of Saline Used => [id number] 11/20/22 11/27/22 15:00 14:50 Wound Center Nurse [...] -Expiration Date 08/20/27 08/20/27 -Product Lot Number [id number] -Percent Used 100 100 -Lot number of Saline Used [id number] -Bleeding Controlled with Pressure Pressure -Treatment Response [...] Date Recorded By Document 11/20/22 15:35 DL [id number] 11/20/22 15:36 DL Document 11/27/22 15:02 JF [id number] 11/27/22 15:03 JF 11/20/22 11/27/22 15:35 15:02 [...] 11/28/224 <Electronically signed by Bonny Glynn NP [employer]> Cosigner Signature (if applicable): CC: ~ Signed [facility] Work Phone: 1(368) 416-739604-10-2023 Progress note Author Bonny Glynn [facility] November 26, 2022 10:29pm Note Date/Time November 20, 2022 4:18 pm [facility] [address] [place] [address] Progress Note - Wound Care 11/20/22 1618 MR#: [id number] Acct: [id number] Name: PEDRO HILLMAN Rep #:[id number] : 1945 77 From: Bonny garcia NP [employer] PCP: Dr. Tonio Fajardo, DO Status:REG RCR Location: History of Present Illness Date of Service: 11/20/22 Chief Complaint: right medial foot ulcer History of Wound: This 77-year-old male returns to the wound healing clinic for reoccurrence of a right medial foot ulcer. Wound care has been Moistened Cass covered with Celina SAP dressing. Patient diabetic neuropathic. Patient dealing [...] 14:43 11/20/22 14:43 Charges/Coding Procedures Integumentary 150xxx-152xx: 37576 Skin sub graft face/nk/hf/g Debridement Note Debridement [...] Date Recorded By Document 11/20/22 14:43 DL [id number] 11/20/22 14:49 DL 11/20/22 14:43 WC - Today's Visit Information Type of service Follow-up Visit (Physician/ASSISTANT PROFESSOR OF BIOLOGY ) Arrival Mode Ambulatory,Cane Transfer Assistance None [...] Date Recorded By Document 11/20/22 14:43 DL [id number] 11/20/22 14:49 DL 11/20/22 14:43 Wound Center Nurse 1 #9 Right Inferior Hallux -Current Size (cm) - Length 0.2 -Current Size (cm) - Width 0.3 -Current Size (cm) - Depth 0.2 -Total Square Cm 0.06 -Photo Taken No -Exudate Amt Small -Exudate Type Serosanguineous -Wound Margin Thickened -Granulation Amt Small (1-33%) -Granulation Quality [place] -Necrosis Amt Small (1-33%) -Necrotic Tissue Type [...] Date Recorded By Document 11/20/22 15:00 JF [id number] 11/20/22 15:09 JF Edit Result 11/20/22 15:00 JF (1) [id number] 11/20/22 15:18 JF Edit Result 11/20/22 15:00 JF (2) [id number] 11/20/22 15:20 JF (1) #9 Right Inferior [...] => 08/20/27 - Product Lot Number => [id number] - Percent Used => 100 - Lot number of Saline Used => [id number] 11/20/22 15:00 Wound Center Nurse 2 -Time [...] Disc -Expiration Date 08/20/27 -Product Lot Number [id number] -Percent Used 100 -Lot number of Saline Used [id number] -Bleeding Controlled with Pressure -Treatment Response Procedure [...] Date Recorded By Document 11/20/22 15:35 DL [id number] 11/20/22 15:36 DL 11/20/22 15:35 Wound Care [...] 11/26/222228 <Electronically signed by Bonny Glynn NP [employer]> Cosigner Signature (if applicable): CC: ~ Signed [facility] Work Phone: 1(157) 189-616202-21-2023 Progress note Author Bonny Glynn [facility] October 10, 2022 3:29pm Note Date/Time October 09, 2022 4:10pm [facility] [address] [place] [address] Progress Note - Wound Care 10/09/22 1609 MR#: [id number] Acct: [id number] Name: PEDRO HILLMAN Rep #:[id number] : 1945 77 From: Bonny garcia 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 Tonio Fajardo, DO Status:REG RCR Location: History of Present Illness Date of Service: 10/09/22 Chief Complaint: right foot ulcer History of Wound: This 77-year-old male returns to the wound healing clinic for reoccurrence of a right medial foot ulcer. Wound care has been Moistened Cass covered with Celina SAP dressing. Patient diabetic neuropathic. Patient dealing [...] Method Room Air Charges/Coding Procedures Integumentary 150xxx-152xx: 29451 Skin sub graft face/nk/hf/g Debridement Note Debridement [...] Recorded Date Recorded By Document 09/25/22 14:25 [facility] [id number] 09/25/22 14:32 BMF Document 10/02/22 13:28 ML [id number] 10/02/22 13:32 ML Document 10/09/22 12:59 DL [id number] 10/09/22 13:04 DL 09/25/22 10/02/22 10/09/22 14:25 13:28 12:59 WC - Today's Visit Information Type of service Follow-up Visit Follow-up Visit Follow-up Visit (Physician/ASSISTANT PROFESSOR OF BIOLOGY (Physician/ASSISTANT PROFESSOR OF BIOLOGY (Physician/ASSISTANT PROFESSOR OF BIOLOGY ) ) ) Arrival Mode Ambulatory,Cane Cane [...] Date Recorded By Document 09/25/22 14:25 BMF [id number] 09/25/22 14:32 BMF Document 10/02/22 13:28 ML [id number] 10/02/22 13:32 ML Document 10/09/22 12:59 DL [id number] 10/09/22 13:04 DL 09/25/22 10/02/22 10/09/22 14:25 [...] (0 Large (67-100%) %) -Granulation Quality [place] -Slough/Fibrin Yes Yes -Necrosis Amt Small (1-33%) [...] Recorded Date Recorded By Document 09/25/22 14:42 [id number] 09/25/22 14:51 Document 10/02/22 14:14 [id number] 10/02/22 14:17 Document 10/09/22 13:17 [id number] 10/09/22 13:26 09/25/22 10/02/22 10/09/22 14:42 14:14 [...] Date 06/20/27 05/20/27 06/20/27 -Product Lot Number [id number] 018 026 -Percent Used 100 100 100 -Lot number of Saline Used [id number] -Bleeding Controlled with Pressure Pressure Pressure -Treatment [...] Recorded Date Recorded By Document 09/25/22 14:52 [id number] 09/25/22 14:53 Document 10/02/22 14:18 [id number] 10/02/22 14:19 09/25/22 10/02/22 14:52 14:18 Wound [...] positive for Staphylococcus epidermidis 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 I spoke with his PCP, Dr Fajardo, who was made aware of the results and he said he would treat him from these results. Follow up one week. 10/10/22 1529 <Electronically signed by Bonny Glynn NP [employer]> Cosigner Signature (if applicable): CC: ~ Signed [facility] Work Phone: 1(525) 350-621402-14-2023 Progress note Author Bonny Glynn [facility] October 03, 2022 4:51pm Note Date/Time September 26, 2022 1 :17pm [facility] [address] [place] [address] Progress Note - Wound Care 09/25/22 1501 MR#: [id number] Acct: [id number] Name: PEDRO HILLMAN Rep #:[id number] : 1945 77 From: Bonny garcia NP [employer] PCP: Dr. Tonio Fajardo, DO Status:REG RCR Location: ADDENDUM by FARHEEN Glynn on 10/03/22 at 1651 [place]end[place] [address] Procedures Integumentary 150xxx-152xx: 44963 Skin sub graft face/nk/hf/g 10/03/22 1651<Electronically signed by Bonny Glynn NP [employer]> Cosigner Signature (if applicable): cc: ~* Signed History of Present Illness Date of Service: 09/25/22 Chief Complaint: right foot ulcer History of Wound: This 77-year-old male returns to the wound healing clinic for reoccurrence of a right medial foot ulcer. Wound care has been Moistened Cass covered with Celina SAP dressing. Patient diabetic neuropathic. Patient dealing [...] Method Room Air Charges/Coding Procedures Integumentary 150xxx-152xx: 15771 Skin sub graft trnk/arm/leg Debridement Note Debridement [...] Recorded Date Recorded By Document 09/25/22 14:25 [facility] [id number] 09/25/22 14:32 [facility] 09/25/22 14:25 - Today's Visit Information Type of service Follow-up Visit (Physician/ASSISTANT PROFESSOR OF BIOLOGY ) Arrival Mode Ambulatory,Cane Transfer Assistance None [...] Recorded Date Recorded By Document 09/25/22 14:25 [facility] [id number] 09/25/22 14:32 [facility] 09/25/22 14:25 Wound Center Nurse 1 [...] Date Recorded By Document 09/25/22 14:42 [facility] [id number] 09/25/22 14:51 [facility] 09/25/22 14:42 Wound Center [...] Disc -Expiration Date 06/20/27 -Product Lot Number [id number] -Percent Used 100 -Lot number of Saline Used [id number] -Bleeding Controlled with Pressure -Treatment Response Procedure [...] Date Recorded By Document 09/25/22 14:52 [facility] [id number] 09/25/22 14:53 [facility] 09/25/22 14:52 Wound Care [...] 1317 <Electronically signed by Bonny Glynn NP [employer]> Cosigner Signature (if applicable): CC: ~ Signed [facility] Work Phone: 1(469) 746-737702-14-2023 Progress note Author Bonny Glynn [facility] October 03, 2022 4:49pm Note Date/Time October 02, 2022 2:57pm [facility] [address] [place] [address] Progress Note - Wound Care 10/02/22 1457 MR#: [id number] Acct: [id number] Name: PEDRO HILLMAN Rep #:[id number] : 1945 77 From: Bonny Gillis 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 Tonio Fajardo, DO Status:REG RCR Location: History of Present Illness Date of Service: 10/02/22 Chief Complaint: right foot ulcer History of Wound: This 77-year-old male returns to the wound healing clinic for reoccurrence of a right medial foot ulcer. Wound care has been Moistened Cass covered with Celina SAP dressing. Patient diabetic neuropathic. Patient dealing [...] Charges/Coding Visit Charges Office Visits / Consults: 62227 OV L3 Est (25 modifier) Procedures Integumentary 150xxx-152xx: 67496 Skin sub graft face/nk/hf/g Physical Exam Const [...] Recorded Date Recorded By Document 09/25/22 14:25 [facility] [id number] 09/25/22 14:32 [facility] Document 10/02/22 13:28 ML [id number] 10/02/22 13:32 ML 09/25/22 10/02/22 14:25 13:28 - Today's Visit Information Type of service Follow-up Visit Follow-up Visit (Physician/ASSISTANT PROFESSOR OF BIOLOGY (Physician/ASSISTANT PROFESSOR OF BIOLOGY ) ) Arrival Mode Ambulatory,Cane Cane Transfer [...] Recorded Date Recorded By Document 09/25/22 14:25 [facility] [id number] 09/25/22 14:32 [facility] Document 10/02/22 13:28 ML [id number] 10/02/22 13:32 ML 09/25/22 10/02/22 14:25 13:28 [...] Recorded Date Recorded By Document 09/25/22 14:42 [id number] 09/25/22 14:51 Document 10/02/22 14:14 [id number] 10/02/22 14:17 09/25/22 10/02/22 14:42 14:14 Wound [...] -Expiration Date 06/20/27 05/20/27 -Product Lot Number [id number] -Percent Used 100 100 -Lot number of Saline Used [id number] -Bleeding Controlled with Pressure Pressure -Treatment Response [...] Recorded Date Recorded By Document 09/25/22 14:52 [id number] 09/25/22 14:53 Document 10/02/22 14:18 [id number] 10/02/22 14:19 09/25/22 10/02/22 14:52 14:18 Wound [...] 1649 <Electronically signed by Bonny Glynn NP [employer]> Cosigner Signature (if applicable): CC: ~ Signed [facility] Work Phone: 1(735) 949-546001-10-2023 Progress note Author Bonny Glynn [facility] August 29, 2022 3:36pm Note Date/Time August 29, 2022 2 :32pm [facility] [address] [place] [address] Progress Note - Wound Care 08/29/22 1429 MR#: [id number] Acct: [id number] Name: PEDRO HILLMAN Rep #:[id number] : 1945 77 From: Bonny Gillis 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 Tonio Fajardo, DO Status:REG RCR Location: History of Present Illness Date of Service: 08/29/22 Chief Complaint: right foot ulcer History of Wound: This 77-year-old male returns to the wound healing clinic for reoccurrence of a right medial foot ulcer. Wound care has been Moistened Cass covered with Celina SAP dressing. Patient diabetic neuropathic. Patient dealing [...] Method Room Air Charges/Coding Procedures Integumentary 111xxx-113xx: 63794 Mihaela subq tissue 20 sq cm/< Debridement [...] Recorded Date Recorded By Document 08/29/22 13:17 [facility] [id number] 08/29/22 13:22 [facility] 08/29/22 13:17 WC - Today's Visit Information Type of service Follow-up Visit (Physician/ASSISTANT PROFESSOR OF BIOLOGY ) Arrival Mode Ambulatory,Cane Transfer Assistance None [...] Recorded Date Recorded By Document 08/29/22 13:17 [facility] [id number] 08/29/22 13:22 [facility] 08/29/22 13:17 Wound Center Nurse 1 [...] Recorded Date Recorded By Document 08/29/22 13:35 [id number] 08/29/22 13:40 08/29/22 13:35 Wound Center Nurse [...] Date Recorded By Document 08/29/22 13:47 DL [id number] 08/29/22 13:47 DL 08/29/22 13:47 Wound Care [...] Silvercel as the primary dressing covered with Celina SAP (secondarydressing) daily after washing foot with [...] if develop any questions or concerns. 08/29/22 3466 <Electronically signed by Bonny Glynn NP [employer]> Cosigner Signature (if applicable): CC: ~ Signed [facility] Work Phone: 1([phone]) 569-167612-16-2022 Miscellaneous Notes* Telephone Encounter - Liseth Ortiz [...] advise. Steven Melgar APRN.CNP [facility]-2022 Miscellaneous Notes* Telephone Encounter - Jenny Mock - 04/08/2022 2:56 PM EDT Notified pt of results, daughter will call to get information on restrictions. Jenny Allie * Telephone Encounter - Jenny Mock - 04/08/2022 9:18 AM EDT left message on machine to give call back, different number from pharmacy. [phone]. Jenny Mock * Telephone Encounter - Jenny Mock - 04/07/2022 5:48 PM EDT Unable to reach patient. Mailbox full/Mailbox not set up/ Number incorrect. Please try again later. Jenny Mock * Telephone Encounter - Sigrid Monroe LPN - 04/06/2022 6:48 PM EDT Still unable to reach patient and customer contact sales associate is spouse with same number.Sigrid Monroe [...] symptoms; ER if severe. documented in this encounterTrumbull [facility]08-17-2022 NoteHNO ID: [id number] Author: Steven Melgar APRN.ASSISTANT PROFESSOR OF BIOLOGY Service: ? Author Type: Nurse Practitioner Type: [...] - COVID WITH FLUA+B, ROUTINE Steven Melgar APRN.[facility]08-17-2022 NoteHNO ID: [id number] Author: RT Jose Eduardo(R) Service: Nuclear Medicine [...] Yuliana Olivera RT(R) April 05, 2022 1:55 [facility]08-17-2022 Influenza virus A and B RNA and SARS-CoV-2 (COVID-19) N gene panel BRYAN+probe (Resp)COVID 19 RESULT: SARS-CoV-2 (Agent of COVID-19) Detected by RT-PCR or equivalent method. anatoly RFNT-OyA-[employer] (YASMEEN)_EUA This test was developed and its performance characteristics determined by [facility] [place]. This test has been authorized by FDA under an Emergency Use Authorization (EUA). This test has been validated in accordance with the FDA's Guidance Document Policy for DiagnosticsTesting in Laboratories Certified to Perform High Complexity Testing under CLIA prior to Emergency use Authorization for Coronavirus Disease 2019 during the Public Health Emergency issued on October 18, 2019. Test performed by [facility], [facility] [place], [address] [place] [address]. INFLUENZA A PCR: Negative for Influenza A by RT-PCR INFLUENZA B PCR: Negative for Influenza B by RT-PCRPromedica Flower HospitalComment on above: Performed By: #### [id number] #### [facility] CLIA [id number] [address] [place] [address] [place] [id number] Miscellaneous Notes* Telephone Encounter - Steven Melgar APRN.ASSISTANT PROFESSOR OF BIOLOGY - 04/05/2022 2:58 PM EDT Radiology report faxed to patient's PCP Dr. Tonio Fajardo at [phone]. Confirmation of fax received. Patient was advised to call Dr. Fajardo today for a follow up appointment. Steven Melgar APRN.CNP documented in this encounterTrumbull [facility]08-17-2022 Instructions* Patient Instructions* Steven Melgar APRN.CNP - [...] - COVID WITH FLUA+B, ROUTINE Steven Melgar APRN.CNP documented in this encounterTrumbull [facility]08-17-2022 History of Present illness Narrative* Steven Melgar [...] - COVID WITH FLUA+B, ROUTINE Steven Melgar APRN.ASSISTANT PROFESSOR OF BIOLOGY documented in this encounterTrumbull [facility]08-17-2022 History of Present illness Narrative* Yuliana [...] 05, 2022 1:55 PM documented in this encounterTrumbull Memorial HospitalConsult note Author Mala Sterling [facility] Note Date/Time March 09, 2025 2:58 pm [facility] Medical Records Department [address] [place] [address] Counseling Note - Pharmacy 03/09/25 1457 MR#: [id number] Acct: [id number] Name: PEDRO HILLMAN Rep #:[id number] : 1945 80 From: Mala Sterling PCP: Dr. Tonio Fajardo, DO Status:ADM IN [facility] [place] [facility] [facility] performed discharge [...] DAILY@1730 30 days #30 caps 03/09/25 03/09/25 1778 <Electronically signed by Mala Sterling> Date _ Mala Sepulvedaign Signature (if applicable): Date CC: ~ Signed [facility] Work Phone: Discharge summary Author Casper Iniguez [facility] Note Date/Time April 19, 2025 10 :43am [facility] Medical Records Department [address] [place] [address] Emergency Department Summary 04/19/25 MR#: [id number] Acct: [id number] Name: PEDRO HILLMAN Nora Rep #:[id number] : 1945 80 From: Casper Pyle PCP: Dr. Tonio Fajardo, DO Status:REG ER Location: ED HPI History of Present Illness Chief Complaint: [facility] Medical History Presence of cardiac pacemaker Peripheral arterial disease Other persistent atrial fibrillation New onset atrial flutter COVID Wears hearing aid in both ears Former smoker Coronary artery disease Peripheral vascular occlusive disease BPH (benign prostatic hyperplasia) Chronic kidney disease, stage 3 Atherosclerosis of coronary artery of [place] heart without angina pectoris Hyperlipidemia Lower extremity [...] hr (Mucinex) #20 tabs OXYGEN - Supplemental ([facility] 04/09/25 Unknown History INFORMATIONAL USE ONLY) [...] Notes his pacemaker was placed recently at [facility]. Denies any pain over pacemaker site. REVIEW [...] records reviewed: Pacemaker was placed here with [facility] on 04/09/[address] Hsu Reviewed prior [...] - Noted patient safe to stay at [facility]. States he should be able to evaluate [...] to PCU This note was generated with [employer] dictation software. It may contain incorrectwords, spelling, [...] 75.0 H Lymph % (Auto) 9.1 L [place] % (Auto) 11.3 H Eos % (Auto) [...] to x-ray 04/12/2025. Reading Location: [facility] Discharge Plan Triage Chief Complaint: Syncope ED [...] Qty: 60 0RF (DME) OXYGEN - Supplemental ([facility] INFORMATIONAL USE ONLY) Gas See Rx [...] DO [Primary Care Provider] - Print Language: Bolivian What to do if you have Problems For any increased pain, shortness of breath, bleeding, nausea or vomiting, chestpain, or any unexpected problems, contact your Primary Care Provider. Call [facility] ([phone]) or report to the closest Emergency Room. Call 911 if necessary. 04/19/25 1043 <Electronically signed by Casper Iniguez DO> Cosigner Signature (if applicable): CC: Dr. Tonio Fajardo DO ~ Signed [facility] Work Phone: Discharge summary Author Tonio Mccallum [facility] Note Date/Time April 23, 2025 5:03pm [facility] Medical Records Department [address] [place] [address] Transfer to [facility] MR#: [id number] Acct: [id number] Name: PEDRO HILLMAN Rep #:[id number] : 1945 80 From: Tonio Mccallum DO PCP: Dr. Tonio Fajardo DO Status:ADM IN Certification of patient admission REQUIRED AT TIME OF ADMISSION. I CERTIFY THAT POST-HOSPITAL ECF SERVICES ARE REQUIRED TO BE GIVEN ON AN IN-PATIENT BASIS BECAUSE OF THE ABOVE NAMED PATIENT'S NEED FOR FDC CARE ON A CONTINUING BASIS FOR THE CONDITION(S) FOR WHICH HE/SHE WAS RECEIVING IN-PATIENT HOSPITAL SERVICES PRIOR TO HIS/HER TRANSFER TO THE [facility]. 04/23/25 1703<Electronically signed by Tonio Mccallum DO> [...] med Pass. [facility] Total clinical time spent by myself addressing [...] mg PO DAILY (DME) OXYGEN - Supplemental ([facility] INFORMATIONAL USE ONLY) Gas See Rx Instructions .ROUTE Patient Comments: 2 lpm at rest, 3 lpm on exertion, 2 lpm at HS DME company: [employer] Rx Instructions: As directed ipratropium-albuterol 0.5 mg-3 [...] in before D/C Order can be placed): [facility] 04/23/25 1703 <Electronically signed by Tonio Mccallum DO> Cosigner Signature (if applicable): CC: Dr. Kwaku Narayanan DO; Dr. 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 Venous insufficiency chronic Ulcer of right foot with fat layer exposed resolved Malnutrition chronic 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 Venous insufficiency chronic Ulcer of right foot with fat layer exposed resolved [facility] Work Phone: Evaluation note* Diagnosis Onset Date [...] right foot with fat layer exposed resolved [facility] Work Phone: Evaluation note* Diagnosis Onset Date [...] 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 [facility] Work Phone: Evaluation note* Diagnosis Onset Date [...] right foot with fat layer exposed resolved [facility] Work Phone: Evaluation note* Diagnosis Burning with urination- Primary Dysuria Acute cough Suspected COVID-19 virus infection [facility] Onset Date Resolution Status [...] acute Nicotine dependence, cigarettes, in remission acute [facility] Work Phone: Evaluation note* Diagnosis Onset Date [...] right foot with fat layer exposed resolved [facility] Work Phone: Evaluation note* Diagnosis Onset Date [...] right foot with fat layer exposed resolved [facility] Work Phone: Evaluation note* Diagnosis Onset Date [...] of upper lobe of right lung acute [facility] Work Phone: Evaluation note* Diagnosis Onset Date [...] of upper lobe of right lung acute [facility] Work Phone: Evaluation note* Diagnosis Onset Date [...] of upper lobe of right lung acute [facility] Work Phone: Evaluation note* Diagnosis Onset Date [...] 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 [facility] Work Phone: Evaluation note* Diagnosis Onset Date [...] right foot with fat layer exposed chronic [facility] Work Phone: Evaluation note* Diagnosis Onset Date [...] right foot with fat layer exposed chronic [facility] Work Phone: Evaluation note* Diagnosis Onset Date [...] layer exposed chronic Shortness of breath chronic [facility] Work Phone: Evaluation note* Diagnosis Onset Date Resolution Status Primary squamous cell carcin murlai of upper [...] of upper lobe of right lung chronic [facility] Work Phone: Evaluation note* Diagnosis Onset Date [...] of upper lobe of right lung chronic [facility] Work Phone: Evaluation note* Diagnosis Onset Date [...] right foot with fat layer exposed chronic [facility] Work Phone: Evaluation note* Diagnosis Onset Date [...] right foot with fat layer exposed chronic [facility] Work Phone: Evaluation note* Diagnosis Onset Date [...] right foot with fat layer exposed chronic [facility] Work Phone: Evaluation note* Diagnosis Onset Date [...] right foot with fat layer exposed chronic [facility] Work Phone: Evaluation note* Diagnosis Onset Date [...] right foot with fat layer exposed chronic [facility] Work Phone: Evaluation note* Diagnosis Onset Date [...] right foot with fat layer exposed resolved [facility] Work Phone: Evaluation note* Diagnosis Onset Date [...] right foot with fat layer exposed chronic [facility] Work Phone: Evaluation note* Diagnosis Onset Date [...] pulmonary disease) chronic 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 [facility] Work Phone: Evaluation note* Diagnosis Onset Date Resolution Status Irregular heart rate acute COPD (chronic obstructive pulmonary disease) chronic 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 Plenty of fluids and rest today do not get dehydrated. Return if you are feeling a lot worse or too weak to get around her house. Follow-up with your doctor in the next several days to ensure you are improving. [facility] Work Phone: Hospital Discharge instructions Additional Instructions 1. Keep your postoperative dressing clean dry and intact 2. Continue strict glycemic control. 3. Partial weightbearing to heel with surgical shoe, use walker or crutches 4. Reach out to Dr. Suárez with any questions or concerns and follow-up in 1 week in clinic. [facility]: Reason for referral (narrative)No reason for referral information availableWSt. Vincent Hospital Work Phone: Chief Complaint and Reason [...] 04 7:57pm Atherosclerosis of coronary artery of [place] heart without angina pectoris March 04, 2025 [...] 2025 7:57pm Atherosclerosis of coronary artery of [place] heart without angina pectoris March 04, 2025 [...] 15, 2025 4:56 pm 6 M FU/S/P [facility] 03/09March 17, 2025 12: 51pm Reason [...] 2025 7:57pm Atherosclerosis of coronary artery of [place] heart without angina pectoris March 04, 2025 [...] 15, 2025 4:56 pm 6 M FU/S/P [facility] 03/09March 17, 2025 12: 51pm atrial [...] 15, 2025 4:56 pm 6 M FU/S/P [facility] 03/09March 17, 2025 12: 51pm atrial [...] 2025 7:57pm Atherosclerosis of coronary artery of [place] heart without angina pectoris March 04, 2025 [...] 15, 2025 4:56 pm 6 M FU/S/P [facility] 03/09March 17, 2025 12: 51pm atrial [...] 2025 7:57pm Atherosclerosis of coronary artery of [place] heart without angina pectoris March 04, 2025 [...] 15, 2025 4:56 pm 6 M FU/S/P [facility] 03/09March 17, 2025 12: 51pm atrial [...] 15, 2025 4:56 pm 6 M FU/S/P [facility] 03/09March 17, 2025 12: 51pm atrial [...] 2025 7:57pm Atherosclerosis of coronary artery of [place] heart without angina pectoris March 04, 2025 [...] 15, 2025 4:56 pm 6 M FU/S/P [facility] 03/09March 17, 2025 12: 51pm atrial [...] 15, 2025 4:56 pm 6 M FU/S/P [facility] 03/09March 17, 2025 12: 51pm atrial [...] 2025 7:57pm Atherosclerosis of coronary artery of [place] heart without angina pectoris March 04, 2025 [...] :33pm Type 2 diabetes mellitus with hyperglyce aelcia April 10, 2025 6:33pm COPD (chronic obstructive [...] 15, 2025 4:56 pm 6 M FU/S/P [facility] 03/09March 17, 2025 12: 51pm atrial [...] 15, 2025 4:56 pm 6 M FU/S/P [facility] 03/09March 17, 2025 12: 51pm atrial [...] 2025 7:57pm Atherosclerosis of coronary artery of [place] heart without angina pectoris March 04, 2025 [...] 15, 2025 4:56 pm 6 M FU/S/P [facility] 03/09March 17, 2025 12: 51pm atrial [...] 2025 7:57pm Atherosclerosis of coronary artery of [place] heart without angina pectoris March 04, 2025 [...] 15, 2025 4:56 pm 6 M FU/S/P [facility] 03/09March 17, 2025 12: 51pm atrial [...] 2025 7:57pm Atherosclerosis of coronary artery of [place] heart without angina pectoris March 04, 2025 [...] 15, 2025 4:56 pm 6 M FU/S/P [facility] 03/09March 17, 2025 12: 51pm atrial [...] 2025 7:57pm Atherosclerosis of coronary artery of [place] heart without angina pectoris March 04, 2025 [...] February 17, 2014 1 1:03am Power of Risk Investigator No February 17, 2014 11:03am Advance Directive Response Recorded Date/ Time Name of Medical Power of Risk Investigator SON April 14, 2022 8:29am Advance Directives No February 17 4 11:03am Living Will No April 14 8:29am Power of Risk Investigator Yes April 14 8:29am Advance Directive Response Recorded Date/ Time Name of Medical Power of Risk Investigator SON April 14, 2022 7:29am Advance Directives No February 17 4 10:03am Living Will No April 14 2 7:29am Power of Risk Investigator Yes April 14 7:29am Advance Directive Response Recorded Date/ Time Advance Directives No February 17 4 10:03am Living Will No April 14 2 7:29am Power of Risk Investigator Yes April 14 7:29am Advance Directive Response Recorded Date/ Time Advance Directives No February 17 4 11:03am Living Will No April 14 2 8:29am Power of Risk Investigator Yes April 14 8:29am Advance Directive Response Recorded Date/ Time Name of Medical Power of Risk Investigator Gideon Calderon December 30, 2022 10:39pm Advance Directives No February 17 4 11:03am Living Will Yes December 30, 2022 1 0:39pm Power of Risk Investigator Yes December 30, 2022 10:39pm Advance Directive Response Recorded Date/ Time Advance Directives No February 17 4 11:03am Living Will Yes December 30, 2022 1 0:39pm Power of Risk Investigator Yes December 30, 2022 10:39pm Advance Directive Response Recorded Date/ Time Advance Directives No February 17 4 10:03am Living Will Yes December 30, 2022 9 :39pm Power of Risk Investigator Yes December 30, 2022 9:39pm Advance Directive Response Recorded Date/ Time Living Will Yes December 30, 2022 1 0:39pm Power of Risk Investigator Yes December 30, 2022 10:39pm Advance Directives No February 17 11:03am Advance Directive Response Recorded Date/ Time Living Will Yes December 30, 2022 1 0:39pm Do you have a Healthcare Power of Risk Investigator? Yes December 30, 2022 10:39pm Living Will No April 14 8:29am Do you have a Healthcare Power of Risk Investigator? Yes April 14, 2022 8:29am Advance Directives No February 17 11:03am Advance Directive Response Recorded Date/ Time Living Will No April 14 8:29am Do you have a Healthcare Pow er of Risk Investigator? Yes April 14, 2022 8:29am Do you have a Healthcare Pow er of Risk Investigator? Yes March 04, 2025 2:58pm Name of Medical Power of Risk Investigator Ed Daja olmstead March 04, 2025 2:58pm Advance Directives No February 17 11:03am Advance Directive Response Recorded Date/ Time Do you have a Healthcare Power of Risk Investigator? Yes March 04, 2025 9:11pm Name of Medical Power of Risk Investigator Ed Daja olmstead March 04, 2025 2:58pm Advance Directives No February 17 11:03am Advance Directive Response Recorded Date/ Time Do you have a Healthcare Power of Risk Investigator? Yes March 04, 2025 9:11pm Name of Medical Power of Risk Investigator Ed Daja olmstead March 04, 2025 2:58pm Do you have a Healthcare Power of Risk Investigator? Yes March 15, 2025 5:04pm Name of Medical Power of Risk Investigator Ed Daja March 15, 2025 5:04pm Advance Directives No February 17 11:03am Advance Directive Response Recorded Date/ Time Do you have a Healthcare Pow er of Risk Investigator? Yes March 04, 2025 9:11pm Name of Medical Power of Risk Investigator Ed Daja olmstead March 04, 2025 2:58pm Do you have a Healthcare Pow er of Risk Investigator? Yes April 05, 2025 4:49pm Do you have a Healthcare Pow er of Risk Investigator? Yes March 15, 2025 5:04pm Name of Medical Power of Risk Investigator Ed Daja March 15, 2025 5:04pm Advance Directives No February 17 11:03am Advance Directive Response Recorded Date/ Time Do you have a Healthcare Pow er of Risk Investigator? Yes March 04, 2025 9:11pm Name of Medical Power of Risk Investigator Ed Daja olmstead March 04, 2025 2:58pm Do you have a Healthcare Pow er of Risk Investigator? Yes April 05, 2025 8:49pm Do you have a Healthcare Pow er of Risk Investigator? Yes March 15, 2025 5:04pm Name of Medical Power of Risk Investigator Ed Daja March 15, 2025 5:04pm Advance Directives No February 17 11:03am Advance Directive Response Recorded Date/ Time Do you have a Healthcare Pow er of Risk Investigator? Yes March 04, 2025 9:11pm Name of Medical Power of Risk Investigator Ed Daja olmstead March 04, 2025 2:58pm Do you have a Healthcare Pow er of Risk Investigator? Yes April 05, 2025 8:49pm Do you have a Healthcare Pow er of Risk Investigator? Yes April 12, 2025 6:18pm Do you have a Healthcare Pow er of Risk Investigator? Yes March 15, 2025 5:04pm Name of Medical Power of Risk Investigator Ed Daja March 15, 2025 5:04pm Do you have a Healthcare Pow er of Risk Investigator? Yes April 10, 2025 10:00pm Advance Directives No February 17 11:03am Advance Directive Response Recorded Date/ Time Do you have a Healthcare Pow er of Risk Investigator? Yes March 04, 2025 9:11pm Name of Medical Power of Risk Investigator Ed Daja olmstead March 04, 2025 2:58pm Do you have a Healthcare Pow er of Risk Investigator? Yes April 05, 2025 8:49pm Do you have a Healthcare Pow er of Risk Investigator? Yes April 12, 2025 6:18pm Do you have a Healthcare Pow er of Risk Investigator? Yes March 15, 2025 5:04pm Name of Medical Power of Risk Investigator Ed Daja March 15, 2025 5:04pm Do you have a Healthcare Pow er of Risk Investigator? Yes April 10, 2025 10:00pm Do you have a Healthcare Pow er of Risk Investigator? Yes April 17, 2025 6:20pm Name of Medical Power of Risk Investigator Ed Daja April 17, 2025 6:20pm Do you have a Healthcare Pow er of Risk Investigator? Yes April 19, 2025 8:42am Advance Directives No February 17 11:03am Advance Directive Response Recorded Date/ Time Do you have a Healthcare Pow er of Risk Investigator? Yes March 04, 2025 9:11pm Name of Medical Power of Risk Investigator Ed Daja olmstead March 04, 2025 2:58pm Do you have a Healthcare Pow er of Risk Investigator? Yes April 05, 2025 8:49pm Do you have a Healthcare Pow er of Risk Investigator? Yes April 12, 2025 6:18pm Do you have a Healthcare Pow er of Risk Investigator? Yes March 15, 2025 5:04pm Name of Medical Power of Risk Investigator Ed Daja March 15, 2025 5:04pm Do you have a Healthcare Pow er of Risk Investigator? Yes April 10, 2025 10:00pm Do you have a Healthcare Pow er of Risk Investigator? Yes April 17, 2025 6:20pm Name of Medical Power of Risk Investigator Ed Daja April 17, 2025 6:20pm Do you have a Healthcare Pow er of Risk Investigator? Yes April 19, 2025 12:14pm Advance Directives No February 17 11:03am Advance Directive Response Recorded Date/ Time Do you have a Healthcare Pow er of Risk Investigator? Yes March 04, 2025 9:11pm Name of Medical Power of Risk Investigator Ed Daja olmstead March 04, 2025 2:58pm Do you have a Healthcare Pow er of Risk Investigator? Yes April 05, 2025 8:49pm Do you have a Healthcare Pow er of Risk Investigator? Yes April 12, 2025 6:18pm Do you have a Healthcare Pow er of Risk Investigator? Yes March 15, 2025 5:04pm Name of Medical Power of Risk Investigator Ed Shmuelkwasi March 15, 2025 5:04pm Do you have a Healthcare Pow er of Risk Investigator? Yes April 10, 2025 10:00pm Do you have a Healthcare Pow er of Risk Investigator? Yes April 17, 2025 6:20pm Name of Medical Power of Risk Investigator Ed Shmuelkwasi April 17, 2025 6:20pm Do you have a Healthcare Pow er of Risk Investigator? Yes April 19, 2025 12:14pm Do you have a Healthcare Pow er of Risk Investigator? Yes April 24, 2025 3:42pm Name of Medical Power of Risk Investigator paula Sky April 24, 2025 3:42pm Advance Directives No February 17 11:03am Advance Directive Response Recorded Date/ Time Do you have a Healthcare Pow er of Risk Investigator? Yes March 04, 2025 9:11pm Name of Medical Power of Risk Investigator Ed Daja johnnie aysha March 04, 2025 2:58pm Do you have a Healthcare Pow er of Risk Investigator? Yes April 05, 2025 8:49pm Do you have a Healthcare Pow er of Risk Investigator? Yes April 12, 2025 6:18pm Do you have a Healthcare Pow er of Risk Investigator? Yes May 04, 2025 1:30pm Do you have a Healthcare Pow er of Risk Investigator? Yes March 15, 2025 5:04pm Name of Medical Power of Risk Investigator Ed Shmuelkwasi March 15, 2025 5:04pm Do you have a Healthcare Pow er of Risk Investigator? Yes April 10, 2025 10:00pm Do you have a Healthcare Pow er of Risk Investigator? Yes April 17, 2025 6:20pm Name of Medical Power of Risk Investigator Ed Shmuelkwasi April 17, 2025 6:20pm Do you have a Healthcare Pow er of Risk Investigator? Yes April 19, 2025 12:14pm Do you have a Healthcare Pow er of Risk Investigator? Yes April 24, 2025 3:42pm Name of Medical Power of Risk Investigator paula Syk April 24, 2025 3:42pm Advance [...] or prosecute any alcohol or drug abuse patient.[facility] the event this information is protected by the Federal Confidentiality of Alcohol and Drug Abuse Patient Records regulations: The Federal rules restrict any use of the information to criminally investigate or prosecute any alcohol or drug abuse patient.[facility] Hospital[facility] the event this information is protected by the Federal Confidentiality of Alcohol and Drug Abuse Patient Records regulations: The Federal rules restrict any use of the information to criminally investigate or prosecute any alcohol or drug abuse patient.[facility] Hospital[facility] the event this information is protected by the Federal Confidentiality of Alcohol and Drug Abuse Patient Records regulations: The Federal rules restrict any use of the information to criminally investigate or prosecute any alcohol or drug abuse patient.[facility] the event this information is protected by the Federal Confidentiality of Alcohol and Drug Abuse Patient Records regulations: The Federal rules restrict any use of the information to criminally investigate or prosecute any alcohol or drug abuse patient.[facility] Reason for Visit (unrecogniz ed section and content) Reason Comments Results Reason Comments Urinary Problem burning with urinati on x 1 week nasal congestion and drainage x 1 week Reason Comments Results COVID+ Reason Comments Patient Update Care Teams (unrecognized sec tion and content) Radio Communication Coordinator Relationship Specialty Start Date End Date Tonio Fajardo DO [address] [place] [address] PCP - General Family Practice 04/05/22 Radio Communication Coordinator Relationship Specialty Start Date End Date Scotty, Tonio Ovalle DO [address] [place] [address] PCP - General Family Practice 04/05/22 Radio Communication Coordinator Relationship Specialty Start Date End Date Scotty, Tonio Ovalle [address] [place] [address] PCP - General Family Practice 04/05/22 Radio Communication Coordinator Relationship Specialty Start Date End Date Tonio Fajardo DO [address] [place] [address] PCP - General Family Medicine 04/05/22 Team Status: Active Member Role Status Dates Dr. Tonio Fajardo DO Family Provider Active Dr. Tonio Fajardo DO Primary Care Provider Active Team Status: Inactive Member Role Status Dates Dr. Tonio Fajardo DO Primary Care ProviderJoelle Provider Active Iker Rodriguez [employer], [employer] Attending Provider Active Team Status: Inactive Member [...] DO Primary Care Provider Active Bonny Glynn [employer], [employer] Attending Pro vider, Referring Provider, Other Provider [...] DO Primary Care Provider Active Bonny Glynn [employer], [employer] Attending Provider Active Team Status: Active Member [...] DO Primary Care Provider Active Bonny Peresndell [employer], [employer] Attending Provider Active Team Status: Inactive Member Role Status Dates Dr. Tonio Fajardo DO Primary Care Provider Active Bonny Pintoell [employer], [employer] Attending Provider, Referri ng Provider Active Team Status: Inactive Member Role Status Dates Dr. Tonio Fajardo , DO Primary Care Provider, Referrin g Provider Active Dr. Tyrell Uriarte , DO Attending Provider Active Team Status: Active Member Role Status Dates Dr. Tonio Fajardo , DO Primary Care Provider Active Bonny Glynn [employer], [employer] Attending Provider, Other P rovider Active Team [...] Provider, Referrin g Provider Active Bonny Glynn [employer] MACHINE [employer]END[employer]ODUCTION, [employer] Attending Provider Active Team Status: Inactive Member [...] Provider, Referrin g Provider Active Lorie Mart [employer] MACHINE [employer], [employer] Attending Provider Active Team Status: Inactive Member Role Status Dates Dr. Tonio Fajardo , DO Primary Care Provider, Referrin g Provider Active Leslie Arriaga PA, PA Attending Provider Active Team Status: Inactive Member Role Status Dates Dr. Tonio Fajardo , DO Primary Care Provider Active Lorie Mart [employer] MACHINE [employer], [employer] Attending Provider, Referrin g Provider Active Team [...] Dr. Joaquim Suárez DPM Attending Provider Active Radio Communication Coordinator Relationship Specialty Start Date End Date Tonio Fajardo DO [address] [place] [address] PCP - General Family Medicine 04/05/22 Team [...] 2024 End: October 16, 2024 Lorie Mart [employer], [employer] Attending Provider Active Start: October 16, 2024 End: October 16, 2024 Lorie Mart [employer]ACH[employer], [employer] Referring Provider Active Start: October 16, 2024 End: October 16, 2024 Team Status: Active Member Role Status Dates Dr. Tonio Fajardo DO Primary Care Provider Active Start: October 17, 2024 Lorie Mart [employer]ACHINE [employer], [employer] Referring Provider Active Start: October 17, 2024 Lorie Mart [employer] MACHINE [employer], [employer] Other Provider Active Start: October 17, 2024 [...] 2024 End: October 23, 2024 Lorie Mart [employer] MACHINE [employer], [employer] Attending Provider Active Start: October 23, 2024 [...] 2025 End: March 09, 2025 Iker Rodriguez ROB[employer] MACHINE [employer]ER [employer]ODUCTION, [employer] Other Provider Active Start : March 04, [...] Active Start: March 05, 2025 Dr. Reinaldo cMlain MD Other Provider Active S tart: March 05, 2025 Dr. 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, [employer] Other Provider Active Start : March 06, [...] Active Start: March 06, 2025 Iker Rodriguez ROB[employer] MACHINE [employer]ER [employer], [employer] Other Provider Active Start : March 06, [...] Active Start: March 07, 2025 Iker Rodriguez ROB[employer] MACHINE [employer], [employer] Other Provider Active Start : March 07, 2025 eLslie Arriaga PA, PA Other Provider Active Start: [...] Active Start: March 08, 2025 Iker Rodriguez [employer] MACH[employer], [employer] Other Provider Active Start : March 08, 2025 Leslie Arriaga PA, PA Other Provider Active Start: March 08, 2025 RICKIE Cummins Other Provider Active Start: March 08, 2025 Team Status: Active Member Role/Relationship Status Dates Dr. Tonio Fajarod DO Primary Care Provider Active Start: March [...] Active Start: March 08, 2025 Iker Rodriguez ROBOT[employer] MACHINE [employer]ENDER [employer]ODUCTION, ROB[employer]ACHINE [employer]ER [employer] Other Provider Active Start : March 08, [...] Active Start: March 09, 2025 Iker Rodriguez ROB[employer] MACHINE [employer], [employer] Other Provider Active Start : March 09, [...] Other Provider Active Start: March 09, 2025 Iekr Rodriguez ROB[employer] MACHINE [employer]ER [employer]ODUCTION, [employer] MACH[employer]ER [employer] Other Provider Active Start : March 09, [...] Active Star t: April 09, 2025 Dr. eDric Lantigua MD Other Provider Active Sta rt: [...] 10, 2025 End: April 12, 2025 Dr. Valedz Olivo MD Attending Provider Active Start: April [...] Active Start: April 20, 2025 Dr. Kwaku Nraayanan , DO Other Provider Active Start: April [...] section and content) DATE CREATED AUTHOR 08/12/2022 [facility] DATE CREATED AUTHOR AUTHOR'S ORGANIZ ATION 05/01/2025 [facility] DATE CREATED AUTHOR AUTHOR'S ORGANIZ ATION 05/11/2025 [facility] FOR RECORDS PERTAINING TO PATIENTS [...] BE BASED ON THE PRIMARY CLINICAL RECORDS. [employer] provides no warranty or guarantee of the accuracy or completeness of information in this document.
[2025-05-12 01:57] LABS: Troponin T High Sens 4 HR 81 ng/L (<=22)
[2025-05-12 05:48] LABS: Hematocrit 31.2 % (40-54); Hemoglobin 9.1 g/dL (13.0-16.5); Immature Granulocytes Count 0.060 X10^3/uL (0.0-0.0); Mean Corp Hgb Conc 29.2 g/dL (32-36); Mean Corpuscular Volume 92.6 fL (80-94); Mean Platelet Vol. 10.9 fl (6.2-12.0); NRBC Flagged by Analyzer 0 % (0-5); Platelet Count 199 K/mm3 (150-450); RBC Distribution Width CV 16.3 % (11.6-14.6); RBC Distribution Width SD 55.2 fl (35.1-43.9); Red Blood Count 3.37 M/mm3 (4.6-6.2); White Blood Count 8.7 K/mm3 (4.4-11.0)
[2025-05-12 06:05] LABS: Prothrombin Time (Protime)PT. 17.2 SECONDS (11.7-14.9)
[2025-05-12 06:23] LABS: Anion Gap 11 (5-15); BUN 23 mg/dL (4-19); BUN/Creat Ratio 15.2 RATIO (10-20); Calcium,Total 9.2 mg/dL (7.6-11.0); Carbon Dioxide 36.7 mmol/L (21.0-32.0); Chloride 95 mmol/L (98-108); Estimated Creatinine Clearance 35.68 ml/min (50-250); Glucose 150 mg/dL (70-99); Potassium 4.3 mmol/L (3.3-5.1)
--- NOTE | 2025-05-12 07:02 | US_ITS ---
PROCEDURE: THORACENTESIS W US 05/12/2025 REASON FOR EXAM: R PLEURAL EFFUSION TECHNIQUE: THORACENTESIS W US The procedure as well as the benefits and possible complications were explained to the patient. Informed consent was obtained. The overlying skin was prepped and draped in usual sterile fashion. Following local anesthetic application, a 5 Micronesian catheter was placed into the right pleural cavity. 1090 mL of sheldon colored fluid was aspirated. A sample was sent to the laboratory. The patient tolerated the procedure well. COMPARISON: April 10, 2025. FINDINGS: Successful ultrasound-guided right thoracentesis US/Thoracentesis W US IMPRESSION: Successful ultrasound-guided right thoracentesis. No immediate complication is noted. [facility]
[2025-05-12] MEDS: Metoprolol(XL)Succ 25 MG Tablet 12.5 MG PO ×2 (10:39→22:43)
[2025-05-12 11:22] LABS: LDH 231 U/L (87-241)
[2025-05-12] MEDS: Lidocaine 2% (20 ml mdv) 20 ML Vial INFILT (13:12)
--- NOTE | 2025-05-12 13:14 | FLU_PTH ---
PATIENT: PEDRO HILLMAN LOC: [facility] U#:[id number] AGE/SX: 80/M ROOM: [facility] RE05/12/[address]: Dr. Debi Cm DO : 1945 BED: 1 DIS: 05/14/2025 SPEC #: [id number] RECD: 05/12/25 13:49 STATUS: NOA REQ #: [id number] BERNIE: 05/12/25 13:[address]: Debi Cm DEPT: CYTOLOGY RECD BY: Franklin Gilmore ENTERED: 05/12/25 15:16 SP TYPE: Fluid OTHR DR: DO Dr. Rafa Prater MD Tissues: A - Pleural fluid, NOS Procedures: Special Stain Group II Surgery Specimen Level IV Cytospin Fluid HEADER OPERATION: Ultrasound guided thoracentesis PRE-OP DIAGNOSIS: Pleural effusion TISSUE SUBMITTED: A- Thoracentesis fluid for cytology DIAGNOSIS CYTOLOGY A. Pleural effusion, thoracentesis (cytospin, cellblock): * No malignant cells identified. CYTOLOGY STUDY Slides are reviewed. CYTOLOGY GROSS A. Received is 80 ml of [id number] fluid labeled with the patient's name and and designated per the requisition as Thoracentesis fluid. Submitted for cytology and cell block preparation. Mr 05/12/2025 CPT: 59849,08909
--- NOTE | 2025-05-12 13:22 | RAD_ITS ---
PROCEDURE: CHEST INSP/EXP 2 VIEW 05/12/2025 REASON FOR EXAM: POST THORACENTESIS TECHNIQUE: Procedure Code: [id number] Modality: DX Procedure: CHEST INSP/EXP 2 VIEW AP inspiration expiration views were obtained. Patient is status post right thoracentesis. COMPARISON: Prior study dated May 11, 2025. FINDINGS: The patient is status post right thoracentesis. There is no evidence of pneumothorax. Small residual blunting of the right costophrenic angle. Stable mass in the right upper lobe. RAD/Chest Insp/Exp 2 View IMPRESSION: Status post right thoracentesis. No evidence of pneumothorax. Reading Location: [place] [address]
[2025-05-12 13:46] LABS: Cytology, Body Fluid / CSF SEE PATHOLOGY REPORT
[2025-05-12] MEDS: Glucerna Shake 120 ML LIQUID PO ×2 (14:07→17:53)
[2025-05-12 14:30] LABS: Body Fluid Mononuclear WBC # 0.182 10^3/uL; Body Fluid Mononuclear WBC % 94.8 %; Body Fluid Polynuclear WBC # 0.010 10^3/uL; Body Fluid Polynuclear WBC % 5.2 %; Red Cell Count/Body Fluid 0.007 10^6/ul; White Blood Count/Body Fluid 0.192 10^3/uL
[2025-05-12 14:59] LABS: Glucose, Body Fluid 148 mg/dL (Not Establ.)
[2025-05-12 15:22] LABS: Auto B Fluid Analyzer BKGD Ct COUNTS W/IN LIMITS (W/IN LIMITS)
[2025-05-12 15:25] LABS: Source- Body Fluid THORACENTESIS
[2025-05-12 15:27] LABS: Appearance/Body Fluid SL CLDY; Color/Body Fluid YELLOW
[2025-05-12 15:28] LABS: Body Fluid QC Type(s) BF2Q
--- NOTE | 2025-05-12 16:15 | RAD_ITS ---
PROCEDURE: CHEST 1 VIEW (PORTABLE) 05/12/2025 REASON FOR EXAM: SOB POST THORACENTESIS TECHNIQUE: Frontal view of the chest. COMPARISON: Earlier same day 05/12/2025 FINDINGS: Status post recent right thoracentesis. There may be a small right apical pneumothorax. Otherwise similar small-moderate right pleural effusion, and small left basilar pleural effusion. Cardiomegaly with vascular congestion and interstitial edema. Left chest wall dual lead ICD in stable position. Aortic arch and mitral annulus coarse calcification. Evidence of CABG. RAD/Chest 1 View (Portable) IMPRESSION: Probable small right apical pneumothorax; follow-up recommended. Otherwise similar lung aeration. CHF with fluid overload. Reading Location: [id number]
[2025-05-12 16:25] LABS: Neutrophil (Segs) 12 %
--- NOTE | 2025-05-12 16:32 | CASEMGMT ---
KHURRAM CM updated Dayanna in TCU that patient wishes to return when medically ready. Per Dayanna, patient can return if they have bed available when patient is medically ready. CM will continue to follow this patient and plan for a safe discharge.
--- NOTE | 2025-05-12 19:44 | PCM.PN.HOSP ---
Reason for Visit Chief Complaint: Shortness of breath Subjective Subjective Patient admitted overnight from the transitional care unit due to respiratory distress. Patient was discharged to the transitional care unit on 04/23/2024 after being admitted for orthostatic hypotension. Evidently had been doing okay since that point in time but he became more short of breath in last 24 hours prior to presentation and requiring more oxygen. At baseline he requires 4 L but he was placed on BiPAP in the emergency department. Chest x-ray revealed a moderate to large right pleural effusion that was reidentified on CAT scan. Patient did have a thoracentesis done on 04/10/2025 with 1270 cc removed. Patient did report he was at [facility] and saw surgery there but they are unclear what surgeon they saw and no procedures were performed Objective Data Objective Data Vital Signs: Vital Signs Temp Pulse Resp BP Pulse Ox O2 Del Method O2 Flow Rate 98.1 F 102 H 32 H 176/70 H 100 Nasal Cannula 6 05/12/25 18:04 05/12/25 18:58 05/12/25 18:58 05/12/25 18:58 05/12/25 18:58 05/12/25 18:58 05/12/25 18:58 FiO2 35 05/11/25 23:48 Oxygen Flow Rate (L/min) 6 Oxygen Delivery Method Nasal Cannula Weight: 72 kg Body Mass Index (BMI) 25.6 Intake & Output: Intake and Output for Last 24 Hours 05/10/25 05/11/25 05/12/25 23:59 23:59 23:59 Intake Total 450 / 450 Output Total 3040 / 3040 Balance -2590 / -2590 Lab / Micro Data 05/12/25 04:57 05/12/25 04:57 Labs: Laboratory Results - last 24 hr 05/11/25 20:31: WBC 9.9, RBC 3.49 L, Hgb 9.7 L, Hct 32.0 L, MCV 91.7, MCH 27.8, MCHC 30.3 L, RDW Std Deviation 53.3 H, RDW Coeff of Reggie 16.1 H, Plt Count 215, MPV 11.0, Immature Gran % (Auto) 0.500, Neut % (Auto) 77.9 H, Lymph % (Auto) 10.3 L, [place] % (Auto) 10.0, Eos % (Auto) 0.8, Baso % (Auto) 0.5, Absolute Neuts (auto) 7.7, Absolute Lymphs (auto) 1.02, Nucleated RBC % 0, PT 17.3 H, INR 1.4, APTT 39.1 H, Sodium 141, Potassium 4.2, Chloride 95 L, Carbon Dioxide 35.8 H, Anion Gap 10, BUN 25 H, Creatinine 1.54 H, Estim Creat Clear Calc 34.52 L, Est GFR (MDRD) Non-Af 45 L, BUN/Creatinine Ratio 16.4, Glucose 204 H, Lactic Acid 1.2, Calcium 9.3, Total Bilirubin 0.63, AST 23, ALT 13, Alkaline Phosphatase 92, Troponin T High Sens 88 H* D, NT pro BNP II 4149 H, Total Protein 7.7, Albumin 3.6, Globulin 4.1, Albumin/Globulin Ratio 0.9 05/11/25 21:15: Urine Color Yellow, Urine Clarity Clear, Urine pH 6.5, Ur Specific [place] 1.010, Urine Protein 500 H, Urine Glucose (UA) 50 H, Urine Ketones Negative, Urine Occult Blood 25 H, Urine Nitrite Negative, Urine Bilirubin Negative, Urine Urobilinogen Normal, Ur Leukocyte Esterase Negative, Urine RBC 5-10 SEEN, Urine WBC 0-5 SEEN, Ur Squamous Epith Cells 0-5 SEEN, Urine Bacteria 0 SEEN, Hyaline Casts 5-10 SEEN, Urine Mucus 0 SEEN 05/11/25 22:42: Troponin T Hi Sens 2 Hr 75 H* 05/12/25 00:41: Troponin T Hi Sens 4Hr 81 H* 05/12/25 04:57: WBC 8.7, RBC 3.37 L, Hgb 9.1 L, Hct 31.2 L, MCV 92.6, MCH 27.0, MCHC 29.2 L, RDW Std Deviation 55.2 H, RDW Coeff of Reggie 16.3 H, Plt Count 199, MPV 10.9, Immature Gran % (Auto) 0.700, Neut % (Auto) 79.3 H, Lymph % (Auto) 7.1 L, [place] % (Auto) 12.3 H, Eos % (Auto) 0.1, Baso % (Auto) 0.5, Absolute Neuts (auto) 6.9, Absolute Lymphs (auto) 0.61 L, Nucleated RBC % 0, PT 17.2 H, INR 1.4, Sodium 142, Potassium 4.3, Chloride 95 L, Carbon Dioxide 36.7 H, Anion Gap 11, BUN 23 H, Creatinine 1.49 H, Estim Creat Clear Calc 35.68 L, Est GFR (MDRD) Non-Af 47 L, BUN/Creatinine Ratio 15.2, Glucose 150 H, Calcium 9.2, Lactate Dehydrogenase 231 05/12/25 06:54: POC Glucose 138 H 05/12/25 12:41: POC Glucose 148 H 05/12/25 13:14: Fluid Source THORACENTESIS, Fluid Color YELLOW, Fluid Appearance SL CLDY, Fluid WBC 0.192, Fluid RBC 0.007, Fluid Tot Cell Count 0.194, Fld Polynuclear WBCs # 0.010, Fld Polynuclear WBCs % 5.2, Fluid Mononuclear WBCs 0.182, Fld Mononuclear WBCs % 94.8, Fluid Neutrophils 12, Fluid Lymphocytes 44, Fluid Monocytes 21, Fluid Macrophages 21, Fld Mesothelial Cells 2, Fl Pathologist Comment May follow, Fluid Glucose 148, Fluid Total Protein 2.1, Fluid LDH 74, Fluid Comment 2 SEE COMMENT 05/12/25 18:08: POC Glucose 211 H Micro: Microbiology 05/12/25 07:40 Sputum, Expectorated/Coughed Gram Stain - Final 05/11/25 20:47 Mucosa - Nose SARS-CoV-2, Influenza & RSV (PCR) - Final ABG Data ABG results: ABG 05/11/25 20:27 Specimen Type ART Sample Site R Radial pH 7.43 Bicarbonate Actual 43.5 H Total CO2 46 Base Excess 19 H O2 Saturation 97 O2 % 15.0 ABG pCO2 65.7 H ABG pO2 96 Jg Test Positive O2 Delivery Device NRB Vent Mode Not entered Radiography Diagnostic Testing: Radiology Impression Chest X-Ray 05/11/25 20:57 IMPRESSION: Cardiomegaly with moderate right and small left pleural effusions. Similar to prior. Reading Location: [facility] Chest CTA 05/11/25 22:10 IMPRESSION: No demonstrated pulmonary embolism or arterial dissection. Moderate right pleural effusion. Mild left pleural effusion. Passive atelectatic airspace disease of the lower lobes. Subsegmental atelectasis/consolidation of the right upper lobe, possibly superimposed pneumonia. Secondary mild loss of volume in the right hemithorax. Secretions in the tracheobronchial tree. Moderate coronary artery calcifications. AICD is in good position. Paraseptal emphysema. Interstitial pulmonary congestion/edema. Mild cardiomegaly. Diffuse spondylosis. Mild hepatomegaly. Reading [facility] Thoracentesis Ultrasound 05/12/25 07:02 IMPRESSION: Successful ultrasound-guided right thoracentesis. No immediate complication is noted. Reading Location: [facility] Chest X-Ray 05/12/25 13:22 IMPRESSION: Status post right thoracentesis. No evidence of pneumothorax. Reading Location: [facility] Chest X-Ray 05/12/25 16:15 IMPRESSION: Probable small right apical pneumothorax; follow-up recommended. Otherwise similar lung aeration. CHF with fluid overload. Reading Location: [id number] Assessment & Plan Assessment/Plan (1) Acute on chronic hypoxic respiratory failure: (2) Pneumothorax, right: (3) Anemia: (4) Elevated troponin: PLAN: Plan Acute on chronic hypoxic respiratory failure secondary to recurrent pleural effusions/HFpEF - Thoracentesis performed for removal of just over a liter - Baseline oxygen is 4 L [id number] but requiring 6 L at the time of admission - Wean as able - Fluid studies pending - Given the fact that this is recurrent for large-volume thoracentesis I do feel that he should follow-up with CT surgery and be considered for VATS pleurodesis versus talc pleurodesis - Will discuss with pulmonary medicine tomorrow and see if he can assist with arranging this - Start IV diuretics 40 IV twice daily - Patient does have a history of orthostatic hypotension and is currently on midodrine and fludrocortisone will continue these and monitor blood pressure - Strict I's and O's - Daily weights - Add fluid and sodium restriction to diet - Will check limited echocardiogram Elevated troponin - Slight elevation but no chest pain - Will check limited echo to assess wall motion - Highly suspect this is related to acute decompensated heart failure with preserved ejection fraction - No acute changes consistent with ischemia on EKG Postthoracentesis pneumothorax-right versus trapped lung - Patient had this after his last thoracentesis as well - Question if this is more related to trapped lung and not truly a pneumothorax - Does appear to be 10% or less and did discuss with general surgery--> no chest tube recommended this time will repeat chest x-ray in the morning Iron deficiency anemia acute on chronic - EGD done on 05/04/2025 and an oozing gastric ulcer was noted as well as a single nonbleeding angiodysplastic lesion in the stomach and 3 nonbleeding angiodysplastic lesions in the duodenum - All were treated with heater probe - Anemia is currently stable - Patient is on Eliquis and clopidogrel - Start Protonix 40 mg p.o. twice daily as this does not appear to be a medication as an outpatient - Start Carafate - Monitor hemoglobin closely Upper GI bleed/PUD/GERD/angiodysplastic lesions - Treatment as noted above Chronic orthostatic hypotension - Continue home midodrine - Continue home fludrocortisone CAD/hyperlipidemia/persistent atrial fibrillation/PVD - Continue beta-josselyn for rate control but monitor blood pressure closely with history of orthostatic hypotension - Continue Eliquis 2.5 mg twice daily - Continue Plavix - Continue pravastatin BPH with obstruction - Continue Flomax DM-2 - Continue insulin as ordered - Accu-Cheks as ordered Severe malnutrition - Continue supplements CKD stage IIIb - serum creatinine is stable - Monitor closely with diuresis - Avoid nephrotoxins as able COPD - As needed albuterol - Continue outpatient follow-up with pulmonary medicine DVT prophylaxis -Continue Eliquis 2.5 mg p.o. twice daily CODE STATUS - Full code
--- NOTE | 2025-05-12 19:54 | ECHOLC_ITS ---
Reason For Study Reason For Study: Troponin Elevation Procedure This was a limited 2D transthoracic echocardiogram. Contrast injection was performed. The study was technically difficult. Left Ventricle Mild concentric left ventricular hypertrophy. Normal LV size. Mild inferior septal and posterior basal hypokinesis. Estimated LVEF 55%. Right Ventricle Normal right ventricle. Atria There is severe biatrial dilatation. Mitral Valve Severe mitral annular calcification. Mild (1+) mitral valve insufficiency. Tricuspid Valve Moderate (2+) tricuspid valve insufficiency. Right ventricular systolic pressure estimated to be 50 mmHg. Aortic Valve Aortic sclerosis, no stenosis. Pulmonic Valve The pulmonic valve is not well visualized. Great Vessels Atherosclerotic aortic root. Pericardium/Pleural No pericardial effusion. Medication Diluted definity 1.5ml given slow IV push to enhance endocardial definition. MMode/2D Measurements & Calculations LVIDd: 4.8 cm IVSd: 1.0 cm LVIDs: 3.8 cm LVPWd: 1.2 cm LVAd ap4: 28.0 cm2 FS: 21.8 % LVLd ap4: 7.4 cm EDV(MOD-sp4): 87.3 ml EDV(sp4-el): 90.0 ml LVAs ap4: 15.6 cm2 LVLs ap4: 6.6 cm ESV(MOD-sp4): 29.4 ml ESV(sp4-el): 30.9 ml EF(MOD-sp4): 66.3 % EF(sp4-el): 65.6 % SV(MOD-sp4): 57.8 ml SV(sp4-el): 59.0 ml SI(MOD-sp4): 32.2 ml/m2 Doppler Measurements & Calculations MR max yue: 549.4 cm/sec TR max yue: 312.1 cm/sec MR max P.7 mmHg TR max P.3 mmHg ECHO/Echo Limited w/Contrast Interpretation Summary The study was technically difficult. Mild concentric left ventricular hypertrophy. Mild inferior septal and posterior basal hypokinesis. Estimated LVEF 55%. There is severe biatrial dilatation. Mild (1+) mitral valve insufficiency. Severe mitral annular calcification. Moderate (2+) tricuspid valve insufficiency. Right ventricular systolic pressure estimated to be 50 mmHg. Aortic sclerosis, no stenosis. Atherosclerotic aortic root. Ordering Physician: Debi Cm Performed By: Diogenes Watt RCS
[2025-05-12] MEDS: 0.9% Saline Lock 10 ML Syringe IV (20:50)
[2025-05-12 21:58] LABS: Allen Test Positive; Base Excess 21 mmol/L (-2 to +2); FI02 6.0; PO2 156 mmHG (75-100); SITE R Radial; SO2 99 % (95-99)
[2025-05-12] MEDS: Insulin Glargine-YFGN 100 UNIT/ML Pen 20 UNIT SC (22:42)
--- NOTE | 2025-05-12 23:12 | PCM.HOSP.N ---
Hospitalist Note Reviewed ABG with RT, pH 7.48 with pO2 156, pCO2 60.1 and HCO3 44.7 on 6L oxygen via NC. Assessed light pleural rub to anterior medial RUL with faint rub to [place], both dissipated upon assessment completion of entire lung johnson. Advised use of BiPAP with gentle pressure for push and comfort of pt. Lasix given previously this shift. Reviewed chronicity of pneumothorax to right lung apex with nursing staff and RT. Confirmed that no procedures (chest tube) were needed acutely at this time and that Drs. Pathak and Parag were well aware. Also advised reducing FiO2 from 6L to his baseline 4L NC if he does not want to wear the BiPAP due to the pO2 of 156.
[2025-05-13] VITALS (8 sets, daily range): BP systolic 129–142; BP diastolic 64–92; PULSE 80–108; RESP 16–20; TEMP 36.4–36.9; O2SAT 93–100; BMI 25.2
[2025-05-13 05:21] LABS: Hematocrit 32.1 % (40-54); Hemoglobin 9.7 g/dL (13.0-16.5); Immature Granulocytes Count 0.040 X10^3/uL (0.0-0.0); Mean Corp Hgb Conc 30.2 g/dL (32-36); Mean Corpuscular Volume 90.9 fL (80-94); Mean Platelet Vol. 10.4 fl (6.2-12.0); NRBC Flagged by Analyzer 0 % (0-5); Platelet Count 191 K/mm3 (150-450); RBC Distribution Width CV 16.2 % (11.6-14.6); RBC Distribution Width SD 54.3 fl (35.1-43.9); Red Blood Count 3.53 M/mm3 (4.6-6.2); White Blood Count 8.6 K/mm3 (4.4-11.0)
[2025-05-13 05:42] LABS: Prothrombin Time (Protime)PT. 17.6 SECONDS (11.7-14.9)
[2025-05-13 05:52] LABS: AST(SGOT) 20 U/L (<=37); Alanine Aminotransfer ALT/SGPT 11 U/L (<=46); Albumin, Serum 3.4 g/dL (3.4-4.8); Alkaline Phosphatase 79 U/L (40-129); Anion Gap 10 (5-15); BUN 23 mg/dL (4-19); BUN/Creat Ratio 15.8 RATIO (10-20); Calcium,Total 9.4 mg/dL (7.6-11.0); Carbon Dioxide 39.3 mmol/L (21.0-32.0); Chloride 94 mmol/L (98-108); Estimated Creatinine Clearance 36.42 ml/min (50-250); Globulin 3.7 g/dL (2.2-4.2); Glucose 125 mg/dL (70-99); Magnesium 2.2 mg/dL (1.5-2.2); Potassium 3.4 mmol/L (3.3-5.1)
--- NOTE | 2025-05-13 07:24 | PCM.PN.HOSP ---
Reason for Visit Chief Complaint: Shortness of breath Subjective Subjective No significant issues overnight. We have been able to wean him back to 4 L which is his baseline. I discussed with the patient that we have set up outpatient pulmonary follow-up for mid May for his recurrent pleural effusion. Objective Data Objective Data Vital Signs: Vital Signs Temp Pulse Resp BP Pulse Ox O2 Del Method O2 Flow Rate 98.4 F 97 20 H 129/92 H 93 Nasal Cannula 6 05/13/25 06:00 05/13/25 07:12 05/13/25 07:12 05/13/25 06:00 05/13/25 07:12 05/13/25 07:12 05/13/25 07:12 FiO2 35 05/12/25 22:00 Oxygen Flow Rate (L/min) 6 Oxygen Delivery Method Nasal Cannula Weight: 71.1 kg Body Mass Index (BMI) 25.2 Intake & Output: Intake and Output for Last 24 Hours 05/11/25 05/12/25 05/13/25 23:59 23:59 23:59 Intake Total 450 / 450 Output Total 3040 / 3040 500 / 500 Balance -2590 / -2590 -500 / -500 Lab / Micro Data 05/14/25 08:09 05/14/25 04:52 Labs: Laboratory Results - last 24 hr 05/12/25 04:57: Lactate Dehydrogenase 231 05/12/25 12:41: POC Glucose 148 H 05/12/25 13:14: Fluid Source THORACENTESIS, Fluid Color YELLOW, Fluid Appearance SL CLDY, Fluid WBC 0.192, Fluid RBC 0.007, Fluid Tot Cell Count 0.194, Fld Polynuclear WBCs # 0.010, Fld Polynuclear WBCs % 5.2, Fluid Mononuclear WBCs 0.182, Fld Mononuclear WBCs % 94.8, Fluid Neutrophils 12, Fluid Lymphocytes 44, Fluid Monocytes 21, Fluid Macrophages 21, Fld Mesothelial Cells 2, Fl Pathologist Comment May follow, Fluid Glucose 148, Fluid Total Protein 2.1, Fluid LDH 74, Fluid Comment 2 SEE COMMENT 05/12/25 18:08: POC Glucose 211 H 05/12/25 22:20: POC Glucose 167 H 05/13/25 05:06: WBC 8.6, RBC 3.53 L, Hgb 9.7 L, Hct 32.1 L, MCV 90.9, MCH 27.5, MCHC 30.2 L, RDW Std Deviation 54.3 H, RDW Coeff of Reggie 16.2 H, Plt Count 191, MPV 10.4, Immature Gran % (Auto) 0.500, Neut % (Auto) 77.2 H, Lymph % (Auto) 8.6 L, [place] % (Auto) 12.7 H, Eos % (Auto) 0.6, Baso % (Auto) 0.4, Absolute Neuts (auto) 6.6, Absolute Lymphs (auto) 0.74 L, Nucleated RBC % 0, PT 17.6 H, INR 1.4, Sodium 143, Potassium 3.4, Chloride 94 L, Carbon Dioxide 39.3 H, Anion Gap 10, BUN 23 H, Creatinine 1.46 H, Estim Creat Clear Calc 36.42 L, Est GFR (MDRD) Non-Af 48 L, BUN/Creatinine Ratio 15.8, Glucose 125 H, Calcium 9.4, Phosphorus 3.7, Magnesium 2.2, Total Bilirubin 0.63, AST 20, ALT 11, Alkaline Phosphatase 79, Total Protein 7.1, Albumin 3.4, Globulin 3.7, Albumin/Globulin Ratio 0.9, TSH 4.280 H 05/13/25 06:38: POC Glucose 130 H Micro: Microbiology 05/12/25 07:40 Sputum, Expectorated/Coughed Gram Stain - Final 05/11/25 20:47 Mucosa - Nose SARS-CoV-2, Influenza & RSV (PCR) - Final ABG Data ABG results: ABG 05/12/25 21:55 Specimen Type ART Sample Site R Radial pH 7.48 H Bicarbonate Actual 44.7 H Total CO2 47 Base Excess 21 H O2 Saturation 99 O2 % 6.0 ABG pCO2 60.1 H ABG pO2 156 H Jg Test Positive O2 Delivery Device Cannula Vent Mode Not entered Radiography Diagnostic Testing: Radiology Impression Thoracentesis Ultrasound 05/12/25 07:02 IMPRESSION: Successful ultrasound-guided right thoracentesis. No immediate complication is noted. Reading Location: [place] [id number] Chest X-Ray 05/12/25 13:22 IMPRESSION: Status post right thoracentesis. No evidence of pneumothorax. [facility] Chest X-Ray 05/12/25 16:15 IMPRESSION: Probable small right apical pneumothorax; follow-up recommended. Otherwise similar lung aeration. CHF with fluid overload. Reading Location: [facility] Physical Exam Const alert, oriented x3, no apparent distress and well nourished; Negative for average body habitus or healthy appearing General Appearance: cooperative HEENT normocephalic and head/scalp atraumatic Head and Scalp: normocephalic Resp normal respiratory effort, no retractions, no use of accessory muscles and clear to auscultation bilaterally Resp Narrative: diffusly diminished Auscultation: Negative for crackles, rhonchi or wheezes Cardio regular rate, regular rhythm, S1 normal heart sound, S2 normal heart sound, no murmurs, no rub, no gallops and no clicks GI normal to inspection, nondistended, normoactive bowel sounds, soft to palpation and non-tender Extremity no clubbing, cyanosis or edema General Extremity: Negative for clubbing Neuro moves all extremities and no focal motor deficits Psych cooperative and affect normal Attitude: No agitated Assessment & Plan Assessment/Plan (1) Acute on chronic hypoxic respiratory failure: (2) Pneumothorax, right: (3) Anemia: (4) Elevated troponin: PLAN: Plan Acute on chronic hypoxic respiratory failure secondary to recurrent pleural effusions/HFpEF - Thoracentesis performed for removal of just over a liter - Baseline oxygen is 4 L [id number] but requiring 6 L at the time of admission - Wean as able - Fluid studies pending - Given the fact that this is recurrent for large-volume thoracentesis I do feel that he should follow-up with CT surgery and be considered for VATS pleurodesis versus talc pleurodesis - Will discuss with pulmonary medicine tomorrow and see if he can assist with arranging this - Start IV diuretics 40 IV twice daily - Patient does have a history of orthostatic hypotension and is currently on midodrine and fludrocortisone will continue these and monitor blood pressure - Strict I's and O's - Daily weights - Add fluid and sodium restriction to diet - Will check limited echocardiogram Elevated troponin - Slight elevation but no chest pain - Will check limited echo to assess wall motion - Highly suspect this is related to acute decompensated heart failure with preserved ejection fraction - No acute changes consistent with ischemia on EKG Postthoracentesis pneumothorax-right versus trapped lung - Patient had this after his last thoracentesis as well - Question if this is more related to trapped lung and not truly a pneumothorax - Does appear to be 10% or less and did discuss with general surgery--> no chest tube recommended this time will repeat chest x-ray in the morning Iron deficiency anemia acute on chronic - EGD done on 05/04/2025 and an oozing gastric ulcer was noted as well as a single nonbleeding angiodysplastic lesion in the stomach and 3 nonbleeding angiodysplastic lesions in the duodenum - All were treated with heater probe - Anemia is currently stable - Patient is on Eliquis and clopidogrel - Start Protonix 40 mg p.o. twice daily as this does not appear to be a medication as an outpatient - Start Carafate - Monitor hemoglobin closely Upper GI bleed/PUD/GERD/angiodysplastic lesions - Treatment as noted above Chronic orthostatic hypotension - Continue home midodrine - Continue home fludrocortisone CAD/hyperlipidemia/persistent atrial fibrillation/PVD - Continue beta-josselyn for rate control but monitor blood pressure closely with history of orthostatic hypotension - Continue Eliquis 2.5 mg twice daily - Continue Plavix - Continue pravastatin BPH with obstruction - Continue Flomax DM-2 - Continue insulin as ordered - Accu-Cheks as ordered Severe malnutrition - Continue supplements CKD stage IIIb - serum creatinine is stable - Monitor closely with diuresis - Avoid nephrotoxins as able COPD - As needed albuterol - Continue outpatient follow-up with pulmonary medicine DVT prophylaxis -Continue Eliquis 2.5 mg p.o. twice daily CODE STATUS - Full code Charges/Coding Visit Charges Inpatient E&M: 69749 Subs Hosp L2
[2025-05-13] MEDS: Glucerna Shake 120 ML LIQUID PO ×3 (08:18→16:47)
[2025-05-13] MEDS: Metoprolol(XL)Succ 25 MG Tablet 12.5 MG PO ×2 (10:29→22:27)
[2025-05-13] MEDS: 0.9% Saline Lock 10 ML Syringe IV ×3 (10:30→22:27)
[2025-05-13] MEDS: Insulin Glargine-YFGN 100 UNIT/ML Pen 20 UNIT SC (22:28)
[2025-05-13] MEDS: MELATONIN 3 MG TABLET PO (23:54)
[2025-05-14] VITALS (7 sets, daily range): BP systolic 114–126; BP diastolic 55–85; PULSE 68–80; RESP 16–24; TEMP 36.2–36.6; O2SAT 94–100; BMI 25.4
--- NOTE | 2025-05-14 05:00 | RAD_ITS ---
PROCEDURE: CHEST 1 VIEW (PORTABLE) 05/14/2025 REASON FOR EXAM: R EFFUSION TECHNIQUE: Frontal view of the chest. COMPARISON: 05/12/2025. FINDINGS: AICD is in good position. Unremarkable median sternotomy wires. Unchanged mild bilateral pleural effusions. Unchanged passive atelectatic airspace disease of the lower lobes. Increased pulmonary congestion. Decreased right apical pneumothorax. Enlarged cardiac silhouette. Normal mediastinum and jairo. Normal visualized pulmonary arteries. Atheromatous plaques of the visualized aortic arch and descending thoracic aorta. Diffuse spondylosis of the visualized thoracic spine. Normal visualized ribs, clavicles. Degenerative joint disease. There is no demonstrated abnormality of the visualized soft tissue structures of the upper abdomen. RAD/Chest 1 View (Portable) IMPRESSION: AICD is in good position. Unremarkable median sternotomy wires. Unchanged mild bilateral pleural effusions. Unchanged passive atelectatic airspace disease of the lower lobes. Increased pulmonary congestion. Decreased right apical pneumothorax. Enlarged cardiac silhouette. Reading [facility]
[2025-05-14 05:59] LABS: Hematocrit 27.2 % (40-54); Hemoglobin 8.2 g/dL (13.0-16.5); Mean Corp Hgb Conc 30.1 g/dL (32-36); Mean Corpuscular Volume 90.7 fL (80-94); Mean Platelet Vol. 11.0 fl (6.2-12.0); Platelet Count 166 K/mm3 (150-450); RBC Distribution Width CV 16.3 % (11.6-14.6); RBC Distribution Width SD 53.6 fl (35.1-43.9); Red Blood Count 3.00 M/mm3 (4.6-6.2); White Blood Count 7.4 K/mm3 (4.4-11.0)
[2025-05-14 06:18] LABS: Anion Gap 23 (5-15); BUN 26 mg/dL (4-19); BUN/Creat Ratio 14.7 RATIO (10-20); Calcium,Total 8.6 mg/dL (7.6-11.0); Carbon Dioxide 24.8 mmol/L (21.0-32.0); Chloride 92 mmol/L (98-108); Estimated Creatinine Clearance 29.54 ml/min (50-250); Glucose 105 mg/dL (70-99); Potassium 2.8 mmol/L (3.3-5.1)
[2025-05-14 06:37] LABS: Magnesium 2.2 mg/dL (1.5-2.2)
[2025-05-14 08:25] LABS: Hemoglobin 8.8 g/dL (13.0-16.5)
[2025-05-14] MEDS: Potassium Chloride Oral Tablet 20 MEQ 60 MEQ PO (08:57)
[2025-05-14] MEDS: Metoprolol(XL)Succ 25 MG Tablet 12.5 MG PO (08:58)
[2025-05-14] MEDS: Glucerna Shake 120 ML LIQUID PO (09:08)
[2025-05-14 09:42] LABS: Pathologist Comment/Body Fluid Reviewed
[2025-05-14] MEDS: APIXABAN 2.5 MG TABLET (WCH) PO (11:09)
--- NOTE | 2025-05-14 13:23 | TREXTCAR_ITS ---
Diet Diet Order/Speech Therapy: INPATIENT Hospital Diet / Speech Therapy Order(s) 05/12/25 02:19 Diet: Cardiac - Heart Healthy Food consistency:: Regular Liquid Consistency:: Regular/Thin Dietary Modifications:: No Added Salt Fluid restriction:: 1750 mL Routine Orders/Code Status Suppository Frequency: Daily PRN Routine Lab Work: CBC (1 week) and BMP (1 week) Code Status: Full Code DC O2, CPAP, BIPAP needs Home O2 Discharge instructions: Yes Type of respiratory needs?: Oxygen (3) Oxygen frequency: Continuous Continuous oxygen liters per minute: 3 Wound(s) thoracentesis: Wound Type: Puncture Therapies Weight Bearing: Full weight bearing Physical Therapy: Eval and Treat Occupational Therapy: Eval and Treat Problem/Diagnosis (1) Acute on chronic hypoxic respiratory failure: Status: Chronic Code(s): J96.21 - Acute and chronic respiratory failure with hypoxia (2) Pneumothorax, right: Status: Acute Code(s): J93.9 - Pneumothorax, unspecified (3) Anemia: Status: Acute Code(s): D64.9 - Anemia, unspecified (4) Elevated troponin: Status: Acute Code(s): R79.89 - Other specified abnormal findings of blood chemistry Allergies/Procedures Done in Hospital Allergies ibuprofen Allergy (Severe, Verified 05/11/25 20:31) Facial swelling (angioedema) Procedures: Thoracentesis and - (CXR/CTA chest) Type of Care/Length of Stay Estimated LOS: Convalescent Care Less Than 30 days Type of Care Needed: Skilled Rehab Potential: Fair Prognosis: Fair Additional Orders/Day of Discharge Day of Discharge: 05/14/25 Dietary and Speech Recommendations Dietitian Recommendations/Changes: Continue cardiac diet with 120ml glucerna shake TID with medpass. Will monitor weight trends. Discharge Plan Admission Admit Date/Time: 05/12/25 00:37 Attending Provider: Debi Cm Primary Care Provider: Luis Johnson Consulting Providers: Rafa Lang Discharge Orders/Prescriptions Prescriptions: No Action multivitamin [Daily Multi-Vitamin] Tablet 1 tab PO DAILY pravastatin 20 mg tablet 20 mg PO DAILY Eliquis 5 mg Tablet 2.5 mg PO BID 30 Days Qty: 30 3RF tamsulosin 0.4 mg Capsule 0.4 mg PO DAILY@1730 30 Days Qty: 30 2RF clopidogrel 75 mg tablet 75 mg PO DAILY (DME) OXYGEN - Supplemental ([facility] INFORMATIONAL USE ONLY) Gas See Rx Instructions .ROUTE Patient Comments: 2 lpm at rest, 3 lpm on exertion, 2 lpm at HS DME company: [employer] CM Rx Instructions: As directed insulin glargine-yfgn 100 unit/mL (3 mL) Insulin Pen 20 unit subcut QHS ipratropium-albuterol 0.5 mg-3 mg(2.5 mg base)/3 mL solution for nebulization 3 ml inhalation Q8H acetaminophen 325 mg Tablet 650 mg PO Q6H PRN PRN (Reason: Pain 1-10 Or Fever>100.7) Qty: 0 0RF albuterol sulfate 2.5 mg /3 mL (0.083 %) Solution For Nebulization 2.5 mg inhalation Q4H PRN (Reason: shortness of breath or wheezing) Qty: 0 0RF midodrine 5 mg Tablet 10 mg PO TIDCM Qty: 0 0RF fludrocortisone 0.1 mg Tablet 0.1 mg PO BID Qty: 0 0RF insulin lispro [Humalog KwikPen Insulin] 100 unit/mL Insulin Pen See Protocol subcut ACHS Qty: 0 0RF Protocol: 3. Sliding Scale Insulin Med Dosing Condition: 150-189 mg/dl = 1 unit Condition: 190-229 mg/dl = 2 units Condition: 230-269 mg/dl = 3 units Condition: 270-309 mg/dl = 4 units Condition: 310-349 mg/dl = 5 units Condition: 350-399 mg/dl = 6 units Condition: 400-449 mg/dl = 7 units Condition: Greater than 449 call physician Protocol Text: Suggested for: - Patients on Total Daily Insulin Dose of 37-55 units - Obese, infected, or steroid patients MEDIUM DOSING ALGORITHIM Glucerna 1.2 Gonzalo 0.06-1.2 gram-kcal/mL Liquid 120 ml PO TIDCM Qty: 0 0RF metoprolol succinate 25 mg tablet extended release 24 hr 12.5 mg PO BID Qty: 90 3RF Referrals / Follow Up: Tyrell Uriarte DO [Med Staff - Active Staff, Pulmonary Medicine] - 06/02/25 3:15 pm Referral Note: Follow-up for recurrent right pleural effusion-transudative Luis Johnson DO [Primary Care Provider, Family Practice]
--- NOTE | 2025-05-14 13:27 | PCM.DC.SUM ---
Providers Date of Admission: 05/12/25 Date of Discharge: 05/14/25 Primary Care Physician: Dr. Luis Johnson DO Reason For Visit: ACUTE RESPIRATORY FAILURE Diagnosis Discharge Diagnosis (1) Acute on chronic hypoxic respiratory failure: Status: Chronic Code(s): J96.21 - Acute and chronic respiratory failure with hypoxia (2) Pneumothorax, right: Status: Acute Code(s): J93.9 - Pneumothorax, unspecified (3) Anemia: Status: Acute Code(s): D64.9 - Anemia, unspecified (4) Elevated troponin: Status: Acute Code(s): R79.89 - Other specified abnormal findings of blood chemistry Medications at Discharge Home Medications multivitamin (Daily Multi-Vitamin tablet) 1 tab PO DAILY supplement 06/28/20 pravastatin 20 mg tablet 20 mg PO DAILY hyperlipidemia 01/17/22 apixaban 5 mg tablet (Eliquis) 2.5 mg (1/2 x 5 mg) PO BID blood thinner 30 days #30 tabs 03/09/25 tamsulosin 0.4 mg capsule 0.4 mg PO DAILY@1730 prostate 30 days #30 caps 03/09/25 metoprolol succinate 25 mg tablet,extended release 24 hr 12.5 mg (1/2 x 25 mg) PO BID blood thinner #90 tabs 04/03/25 clopidogrel 75 mg tablet 75 mg PO DAILY anti platelet 04/05/25 OXYGEN - Supplemental ([facility] INFORMATIONAL USE ONLY) 04/09/25 ipratropium 0.5 mg-albuterol 3 mg (2.5 mg base)/3 mL nebulization soln 3 ml inhalation Q8H SOB 04/17/25 acetaminophen 325 mg tablet 650 mg (2 x 325 mg) PO Q6H PRN PRN Pain 1-10 Or Fever>100.7 #0 tabs 04/23/25 albuterol sulfate 2.5 mg/3 mL (0.083 %) solution for nebulization 2.5 mg (3 mL) inhalation Q4H PRN shortness of breath or wheezing #0 mL 04/23/25 fludrocortisone 0.1 mg tablet 0.1 mg PO BID hypotension #0 tabs 04/23/25 insulin lispro 100 unit/mL subcutaneous pen (Humalog KwikPen (U-100) Insulin) See Protocol subcut ACHS diabetes #0 mL 04/23/25 midodrine 5 mg tablet 10 mg (2 x 5 mg) PO TIDCM hypotension #0 tabs 04/23/25 nutrition tx glu intol,lac-free,soy-fiber 0.06 gram-1.2 kcal/mL liquid (Glucerna 1.2 Gonzalo) 120 ml PO TIDCM supplement #0 mL 04/23/25 insulin glargine-yfgn 100 unit/mL (3 mL) subcutaneous pen 20 unit subcut QHS diabetes 05/04/25 furosemide 40 mg tablet 40 mg PO DAILY #0 tabs 05/14/25 sucralfate 1 gram tablet 1 g PO 1HR_ACHS #0 tabs 05/14/25 Hospital Course Operations None Procedures 2-D Echocardiogram, EKG, Thoracentesis and - (CTA chest/CXR) Summary of Care Provided Minutes Spent on Discharge: 37 Hospital Course: Mr. Gunter is an 80-year-old white male who presented to the emergency department at [facility] on 05/12/2025 due to shortness of breath from the transitional care unit. Patient had a known history of a right pleural effusion that required thoracentesis at the recent admission on 04/10/2025. Large-volume Thora was done at that time for about 1200 cc. Etiology appeared to be related to congestive heart failure. He subsequently had admissions for some orthostatic hypotension and it appears his diuretics were discontinued. He had been undergoing rehab at the transitional care unit and in the last day prior to presentation he had increasing shortness of breath. He was having increased respiratory rate and requiring more oxygen. His baseline supplemental oxygen requirements typically 4 L but he was titrated up to 6 L prior to presentation. Upon arrival to emergency department he appeared to be in distress and was placed on BiPAP with a good result. Vital signs on presentation showed temperature of 96.9, heart rate 100, respirate 31, blood pressure was 165/91 the patient was at 100% on a 15 L nonrebreather. CBC was overtly unremarkable other than a chronic stable anemia. Chemistry panel was stable with compared to previous. ABG was performed and showed a pH of 7.45 with a pCO2 of 65.7, PaO2 of 96 on nonrebreather with 15 L and a serum bicarb of 43.5. Chest x-ray showed moderate right and small left pleural effusion. EKG was stable with no changes. Patient was given 1 dose of IV Lasix in the emergency department and admitted for thoracentesis. We added diuretics scheduled after admission and the patient tolerated these well. We will plan on discharging him on 40 of Lasix daily with close follow-up on his renal function with a BMP and a CBC in about a week. A thoracentesis was done for over a liter. Residually he has what appears to be trapped lung. It mimics a pneumothorax but we looked back from his previous images and it was present at that time. Trapped lung is likely related to persistent pleural effusion that compressed and scarred along. This will not reexpand will chronically look like a small pneumothorax. With regards to his recurrent pleural effusion. I have set up an appointment for him to follow-up with Dr. Uriarte from pulmonary medicine on June 01. Repeat imaging and possible repeat thoracentesis may be required. At that time if he has recurrent fluid accumulation CT surgery evaluation may be warranted to consider talc versus VATS pleurodesis. Pleural fluid has been transudative. Cultures are pending at this time however highly doubtful of any infectious parapneumonic effusion. Cytology from his last pleural studies were reviewed and showed atypical cells but favored reactive. Patient was back on his baseline oxygen and stable at 4 L. He was feeling well. Plan is to discharge back to transitional care unit with outpatient follow-up with pulmonary medicine as noted above in his primary care physician within 1 week after follow-up. He will again need a repeat BMP at the very least to reassess his renal function electrolytes in about a week. Patient was discharged to the TCU in stable condition on 10/14/2024. Discharge diagnoses: Acute on chronic hypoxic respiratory failure Left recurrent pleural effusion Acute on chronic HFpEF Elevated troponin Right-sided trapped lung Iron deficiency anemia-acute on chronic Upper GI bleed PUD GERD Angiodysplastic lesions Chronic orthostatic hypotension CAD Hyperlipidemia Persistent A-fib PVD BPH with obstruction DM-2 Severe malnutrition CKD stage IIIb COPD Physical Exam Const alert, oriented x3, no apparent distress, no limitations and well nourished; Negative for average body habitus or healthy appearing Constitutional Narrative: Elderly, white male, sitting up in a chair at the bedside, watching a show on his computer, appears comfortable, nontoxic, on his baseline oxygen at 4 L nasal cannula with no signs of respiratory distress General Appearance: cooperative, comfortable, well kempt and well developed Orientation / Consciousness: awake, oriented to person, oriented to place and oriented to time Exam Limitations: no limitations HEENT normocephalic, head/scalp atraumatic and moist oral mucous membranes HEENT Narrative: Mild hearing loss, no thrush Eyes Negative for conjunctivae normal Eyes Narrative: Mild bilateral conjunctiva pallor, no scleral icterus Neck supple Neck Narrative: Trachea midline Resp normal respiratory effort, no retractions, no use of accessory muscles and clear to auscultation bilaterally Resp Narrative: diffusly diminished but comfortable breathing on baseline supplemental oxygen Auscultation: Negative for crackles, rhonchi or wheezes Cardio regular rate, regular rhythm, S1 normal heart sound, S2 normal heart sound, no murmurs, no rub, no gallops and no clicks GI normal to inspection, nondistended, normoactive bowel sounds, soft to palpation and non-tender Extremity no clubbing, cyanosis or edema Skin skin turgor normal, no jaundice, no petechiae and no mottling Neuro moves all extremities and no focal motor deficits Speech: speech normal Psych cooperative and affect normal Psych Narrative: Very pleasant, interacts appropriately, friendly Weight / BMI Weight Weight: 71.7 kg Body Mass Index (BMI) 25.4 ABG / Lab / Microbiology Data 05/14/25 08:09 05/14/25 04:52 Laboratory: Laboratory Results - last 24 hr 05/12/25 13:14: Fl Pathologist Comment Reviewed, Miscellaneous Cytology SEE PATHOLOGY REPORT 05/13/25 16:37: POC Glucose 159 H 05/13/25 22:21: POC Glucose 145 H 05/14/25 04:52: WBC 7.4, RBC 3.00 L, Hgb 8.2 L, Hct 27.2 L, MCV 90.7, MCH 27.3, MCHC 30.1 L, RDW Std Deviation 53.6 H, RDW Coeff of Reggie 16.3 H, Plt Count 166, MPV 11.0, Sodium 140, Potassium 2.8 L, Chloride 92 L, Carbon Dioxide 24.8, Anion Gap 23 H, BUN 26 H, Creatinine 1.80 H, Estim Creat Clear Calc 29.54 L, Est GFR (MDRD) Non-Af 38 L, BUN/Creatinine Ratio 14.7, Glucose 105 H, Calcium 8.6, Magnesium 2.2 05/14/25 06:39: POC Glucose 108 H 05/14/25 08:09: Hgb 8.8 L 05/14/25 11:03: POC Glucose 195 H Microbiology: Microbiology 05/12/25 13:14 Fluid - Pleural (Lung) Gram Stain - Final 05/12/25 13:14 Fluid - Pleural (Lung) Body Fluid Culture - Preliminary No growth-Final to follow 05/12/25 13:14 Fluid - Pleural (Lung) Anaerobic Culture - Preliminary No growth in 48 hours. 05/11/25 21:15 Urine Catheter - Catheter Urine Culture - Final Culture exhibits no growth. 05/12/25 07:40 Sputum, Expectorated/Coughed Gram Stain - Final 05/12/25 07:40 Sputum, Expectorated/Coughed Respiratory Culture - Preliminary Presumptive C albicans 05/11/25 20:47 Mucosa - Nose SARS-CoV-2, Influenza & RSV (PCR) - Final Radiography Diagnostic Testing: Radiology Impression Chest X-Ray 05/14/25 05:00 IMPRESSION: AICD is in good position. Unremarkable median sternotomy wires. Unchanged mild bilateral pleural effusions. Unchanged passive atelectatic airspace disease of the lower lobes. Increased pulmonary congestion. Decreased right apical pneumothorax. Enlarged cardiac silhouette. Reading [facility] Instructions DC O2, CPAP, BIPAP Needs Home O2 Discharge instructions: Yes Type of respiratory needs?: Oxygen (3) Oxygen frequency: Continuous Continuous oxygen liters per minute: 3 DC home with Oxygen: Yes Home O2 Review: I have reviewed the oxygen testing, and the patient qualifies for home oxygen equipment and portability. The patient is mobile in the home and the community. Meaningful Use Info Meaningful Use Meaningful Use Diagnoses (Choose all that apply): None applicable Discharge Plan Admission Admit Date/Time: 05/12/25 00:37 Primary Reason for Your Visit: Shortness of Breath Attending Provider: Debi Cm Primary Care Provider: Luis Johnson Consulting Providers: Rafa Lang Discharge Orders/Prescriptions Prescriptions: New furosemide 40 mg Tablet 40 mg PO DAILY Qty: 0 0RF sucralfate 1 gram Tablet 1 g PO 1HR_ACHS Qty: 0 0RF Continued multivitamin [Daily Multi-Vitamin] Tablet 1 tab PO DAILY pravastatin 20 mg tablet 20 mg PO DAILY Eliquis 5 mg Tablet 2.5 mg PO BID 30 Days Qty: 30 3RF tamsulosin 0.4 mg Capsule 0.4 mg PO DAILY@1730 30 Days Qty: 30 2RF clopidogrel 75 mg tablet 75 mg PO DAILY (DME) OXYGEN - Supplemental ([facility] INFORMATIONAL USE ONLY) Gas See Rx Instructions .ROUTE Patient Comments: 2 lpm at rest, 3 lpm on exertion, 2 lpm at HS DME company: [employer] CM Rx Instructions: As directed insulin glargine-yfgn 100 unit/mL (3 mL) Insulin Pen 20 unit subcut QHS ipratropium-albuterol 0.5 mg-3 mg(2.5 mg base)/3 mL solution for nebulization 3 ml inhalation Q8H acetaminophen 325 mg Tablet 650 mg PO Q6H PRN PRN (Reason: Pain 1-10 Or Fever>100.7) Qty: 0 0RF albuterol sulfate 2.5 mg /3 mL (0.083 %) Solution For Nebulization 2.5 mg inhalation Q4H PRN (Reason: shortness of breath or wheezing) Qty: 0 0RF midodrine 5 mg Tablet 10 mg PO TIDCM Qty: 0 0RF fludrocortisone 0.1 mg Tablet 0.1 mg PO BID Qty: 0 0RF insulin lispro [Humalog KwikPen Insulin] 100 unit/mL Insulin Pen See Protocol subcut ACHS Qty: 0 0RF Protocol: 3. Sliding Scale Insulin Med Dosing Condition: 150-189 mg/dl = 1 unit Condition: 190-229 mg/dl = 2 units Condition: 230-269 mg/dl = 3 units Condition: 270-309 mg/dl = 4 units Condition: 310-349 mg/dl = 5 units Condition: 350-399 mg/dl = 6 units Condition: 400-449 mg/dl = 7 units Condition: Greater than 449 call physician Protocol Text: Suggested for: - Patients on Total Daily Insulin Dose of 37-55 units - Obese, infected, or steroid patients MEDIUM DOSING ALGORITHIM Glucerna 1.2 Gonzalo 0.06-1.2 gram-kcal/mL Liquid 120 ml PO TIDCM Qty: 0 0RF metoprolol succinate 25 mg tablet extended release 24 hr 12.5 mg PO BID Qty: 90 3RF Referrals / Follow Up: Tyrell Uriarte DO [Med Staff - Active Staff, Pulmonary Medicine] - 06/02/25 3:15 pm Referral Note: Follow-up for recurrent right pleural effusion-transudative Luis Johnson DO [Primary Care Provider, Family Practice] - Within 1 Week Disposition Disposition (needs filled in before D/C Order can be placed): [facility] Facility Charges/Coding Visit Charges Inpatient E&M: 59334 SNF Disch >30 Min
--- NOTE | 2025-05-14 13:38 | PHA.DC.MR.R ---
Pharmacy [place] Med Reconciliation Pharmacy Service has performed discharge medication reconciliation for this patient. The patient's discharge medication list was reviewed for discrepancies and discrepancies were resolved. Medications at Discharge Home Medications multivitamin (Daily Multi-Vitamin tablet) 1 tab PO DAILY supplement 06/28/20 pravastatin 20 mg tablet 20 mg PO DAILY hyperlipidemia 01/17/22 apixaban 5 mg tablet (Eliquis) 2.5 mg (1/2 x 5 mg) PO BID blood thinner 30 days #30 tabs 03/09/25 tamsulosin 0.4 mg capsule 0.4 mg PO DAILY@1730 prostate 30 days #30 caps 03/09/25 metoprolol succinate 25 mg tablet,extended release 24 hr 12.5 mg (1/2 x 25 mg) PO BID blood thinner #90 tabs 04/03/25 clopidogrel 75 mg tablet 75 mg PO DAILY anti platelet 04/05/25 OXYGEN - Supplemental ([facility] INFORMATIONAL USE ONLY) 04/09/25 ipratropium 0.5 mg-albuterol 3 mg (2.5 mg base)/3 mL nebulization soln 3 ml inhalation Q8H SOB 04/17/25 acetaminophen 325 mg tablet 650 mg (2 x 325 mg) PO Q6H PRN PRN Pain 1-10 Or Fever>100.7 #0 tabs 04/23/25 albuterol sulfate 2.5 mg/3 mL (0.083 %) solution for nebulization 2.5 mg (3 mL) inhalation Q4H PRN shortness of breath or wheezing #0 mL 04/23/25 fludrocortisone 0.1 mg tablet 0.1 mg PO BID hypotension #0 tabs 04/23/25 insulin lispro 100 unit/mL subcutaneous pen (Humalog KwikPen (U-100) Insulin) See Protocol subcut ACHS diabetes #0 mL 04/23/25 midodrine 5 mg tablet 10 mg (2 x 5 mg) PO TIDCM hypotension #0 tabs 04/23/25 nutrition tx glu intol,lac-free,soy-fiber 0.06 gram-1.2 kcal/mL liquid (Glucerna 1.2 Gonzalo) 120 ml PO TIDCM supplement #0 mL 04/23/25 insulin glargine-yfgn 100 unit/mL (3 mL) subcutaneous pen 20 unit subcut QHS diabetes 05/04/25 furosemide 40 mg tablet 40 mg PO DAILY #0 tabs 05/14/25 sucralfate 1 gram tablet 1 g PO 1HR_ACHS #0 tabs 05/14/25
--- NOTE | 2025-05-14 15:52 | CASEMGMT ---
Patient has order to discharge to return to TCU for skilled level of care. RN SYLWIA received transfer summary and medlist and faxed to TCU. RN SYLWIA in to update patient. Patient voiced appreciation. Daughter Carly notified that patient is discharging to TCU today.
--- NOTE | 2025-05-14 16:02 | NURSING ---
Report called to nurse [place] for pt to be d/c back to TCU.
== END 2025-05-14 16:52 | disposition skilled nursing facility (03) | DRG 291 ==
LOC: ED 05-12 01:24 → PCU 05-12 01:50
PROVIDERS: Internal Medicine; Admitting Provider Family Medicine; Emergency Provider Emergency Medicine; PCP Family Medicine; Visit Provider Internal Medicine
DX: I13.0 Hypertensive heart and chronic kidney disease with heart failure and stage 1 through stage 4 chronic kidney disease, or unspecified chronic kidney disease (principal); J96.21 Acute and chronic respiratory failure with hypoxia; E43 Unspecified severe protein-calorie malnutrition; I50.33 Acute on chronic diastolic (congestive) heart failure; J90 Pleural effusion, not elsewhere classified; J93.9 Pneumothorax, unspecified; K92.2 Gastrointestinal hemorrhage, unspecified; I48.19 Other persistent atrial fibrillation; N13.8 Other obstructive and reflux uropathy; E11.22 Type 2 diabetes mellitus with diabetic chronic kidney disease; J44.9 Chronic obstructive pulmonary disease, unspecified; N18.32 Chronic kidney disease, stage 3b; D50.9 Iron deficiency anemia, unspecified; E11.42 Type 2 diabetes mellitus with diabetic polyneuropathy; E11.51 Type 2 diabetes mellitus with diabetic peripheral angiopathy without gangrene; I25.10 Atherosclerotic heart disease of native coronary artery without angina pectoris; E78.5 Hyperlipidemia, unspecified; E11.65 Type 2 diabetes mellitus with hyperglycemia; I95.89 Other hypotension; K21.9 Gastro-esophageal reflux disease without esophagitis; Z79.01 Long term (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 of anticoagulants; Z87.891 Personal history of nicotine dependence; Z86.16 Personal history of COVID-19; Z95.0 Presence of cardiac pacemaker; N40.1 Benign prostatic hyperplasia with lower urinary tract symptoms; R79.89 Other specified abnormal findings of blood chemistry; Z79.02 Long term (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 of 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/antiplatelets; Z68.25 Body mass index [BMI] 25.0-25.9, adult
CPT/HCPCS: 32555; 36415; 36600; 71045; 71046; 71275; 80048; 80053; 81001; 82803; 82945; 82962; 83605; 83615; 83735; 83880; 84100; 84157; 84443; 84484; 85018; 85025; 85027; 85610; 85730; 87040; 87070; 87075; 87086; 87205; 87631; 88108; 88305; 88313; 89050; 93005; 93308; 94002; 94003; 94640; 97162; 97166; 97530; 97535; 97802; 99285; P9612; Q9957; Q9967; A4216; C8924; J1938

== ENCOUNTER 2025-05-14 17:35 | Inpatient (IN) | payer MEDICARE, OTHER, SELFPAY ==
[2025-05-14 17:12] VITALS: BP 140/77; PULSE 72; RESP 20; TEMP 36.4; O2SAT 99
--- NOTE | 2025-05-14 17:16 | CASEMGMT ---
Social Work Pt readmitted. no changes to assessment. pt admitted on day 24 of Medicare benefit. Acute SW provided hand off that family asked for AL list and considering alternative DC options. SW will follow for DC planning and support. Criselda Townsend [employer]
[2025-05-14 17:27] VITALS: BMI 25.0
[2025-05-14] MEDS: Glucerna Shake 120 ML LIQUID PO (18:18)
[2025-05-14 18:24] VITALS: PULSE 52; RESP 20; O2SAT 99
--- OUTSIDE RECORDS SUMMARY | 2025-05-14 20:15 | XMS RPT_ITS | CCD ---
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 Tonio Fajardo Primary Care Provider [phone] Dr. Tonio Fajardo Referring Provider Dr. Issa Looney Attending Provider [phone] Tonio Fajardo DO Primary Care Provider Dr. Tyrell Uriarte Attending Provider Dr. Tonio Fajardo Primary Care Provider [phone] Dr. Tonio Fajardo Referring Provider [phone] Brittny SP[employer] W[employer] B[employer] ASSEMBLY, SPOT WELDER BODY ASSEMBLY-C Lorie Attending Provider Dr. Russ Zamora Attending Provider Renard SP[employer] WELDER B[employer] ASSEMBLY, SPOT WELDER B[employer] ASSEMBLY-C Bonny E Attending Provider Renard SP[employer] W[employer] ASSEMBLY, SP[employer] WEL[employer] B[employer] ASSEMBLY-C Bonny E Referring Provider [phone] Renard SP[employer] W[employer] ASSEMBLY, SPOT WELDER BODY ASSEMBLY-C Bonny E Other Provider Dr. Srini Choi Attending Provider Dr. Srini Choi Referring Provider Dr. Srini Choi Other Provider Dr. Mateo Shahid Attending Provider Dr. Issa Looney Attending Provider Dr. Kenyon Flores Referring Provider Unava ilable Dr. Srini Choi Referring Provider [phone] Tevin Allen Attending Provider Dr. Tonio Fajardo Primary Care Provider Dr. Tonio Fajardo Referring Provider Dr. Tyrell Uriarte Attending Provider Dr. Issa Looney Attending Provider Dr. Kenyon Flores Referring Provider Unava mp Mart SPOT WELDER B[employer] ASSEMBLY, SPOT WELDER BODY ASSEMBLY-C Lorie Attending Provider Dr. Russ Zamora Attending Provider Renard SP[employer] WELDER B[employer] ASSEMBLY, SPOT WELDER BODY ASSEMBLY-C Bonny E Attending Provider Renard SP[employer] WELDER B[employer] ASSEMBLY, SPOT WELDER BODY ASSEMBLY-C Bonny E Referring Provider Renard SP[employer] WELDER B[employer] ASSEMBLY, SPOT WELDER BODY ASSEMBLY-C Bonyn E Other Provider Dr. Srini Choi Attending Provider Dr. Srini Choi Referring Provider Dr. Srini Choi Other Provider Dr. Mateo Shahid Attending Provider Roof SP[employer] WELDER B[employer] ASSEMBLY, SPOT WELDER BODY ASSEMBLY-C Iker Stephens Attending Provider Tonio Fajardo DO A Primary Care Provider STEVEN MELGAR Referring Unavailable TONIO FAJARDO A Primary Care Unavailable TONIO FAJARDO A Primary Care Unavailable Dr. Tonio Fajardo Primary Care Provider [phone] Dr. Tonio Fajardo Referring Provider Dr. Toino Fajardo Primary Care Provider [phone] Renard SP[employer] W[employer] ASSEMBLY, SPOT WELDER BODY ASSEMBLY-C Bonny E Attending Provider Renard SP[employer] WELDER BODY ASSEMBLY, SPOT WELDER BODY ASSEMBLY-C Bonny E Referring Provider Renard SPOT WELDER BODY ASSEMBLY, SPOT WELDER BODY ASSEMBLY-C Bonny E Other Provider Dr. Tonio Fajardo Referring Provider Dr. Russ Zamora Attending Provider Dr. Tonio Fajardo Primary Care Provider Dr. Srini Choi Attending Provider Dr. Srini Choi Referring Provider Renard SP[employer] WELDER B[employer] ASSEMBLY, SPOT WELDER BODY ASSEMBLY-C Bonny E Attending Provider Renard SPOT WELDER BODY ASSEMBLY, SPOT WELDER BODY ASSEMBLY-C Bonny E Referring Provider Renard SP[employer] WELDER B[employer] ASSEMBLY, SPOT WELDER BODY ASSEMBLY-C Bonny E Other Provider Dr. Tonio Fajardo Referring Provider Dr. Russ Zamora Attending Provider Dr. Tonio Fajardo Primary Care Provider Renard SP[employer] WELDER B[employer] ASSEMBLY, SPOT WELDER BODY ASSEMBLY-C Bonny E Attending Provider [phone] Renard SP[employer] WELDER B[employer] ASSEMBLY, SPOT WELDER BODY ASSEMBLY-C Bonny E Referring Provider [phone] Renard SP[employer] WELDER B[employer] ASSEMBLY, SPOT WELDER BODY ASSEMBLY-C Bonny E Other Provider Dr. Tonio Fajardo Referring Provider Dr. Russ Zamora Attending Provider Dr. Srini Choi Attending Provider Dr. Tyrell Uriarte Attending Provider Dr. Tonio Fajardo Primary Care Provider Renard SP[employer] WELDER BODY ASSEMBLY, SPOT WELDER BODY ASSEMBLY-C Bonny E Attending Provider Renard SP[employer] WELDER B[employer] ASSEMBLY, SPOT WELDER BODY ASSEMBLY-C Bonny E Referring Provider [phone] Renard SP[employer] WELDER B[employer] ASSEMBLY, SPOT WELDER BODY ASSEMBLY-C Bonny E Other Provider [phone] Dr. Tonio Fajardo Primary Care Provider Renard SP[employer] WELDER B[employer] ASSEMBLY, SPOT WELDER BODY ASSEMBLY-C Bonny E Attending Provider Renard SP[employer] WELDER BODY ASSEMBLY, SPOT WELDER BODY ASSEMBLY-C Bonny E Referring Provider [phone] Renard SP[employer] WELDER BODY ASSEMBLY, SPOT WELDER BODY ASSEMBLY-C Bonny E Other Provider [phone] Dr. Tonio Fajardo Primary Care Provider Renard SP[employer] WELDER B[employer] ASSEMBLY, SPOT WELDER BODY ASSEMBLY-C Bonny E Attending Provider Renard SPOT WELDER BODY ASSEMBLY, SPOT WELDER BODY ASSEMBLY-C Bonny E Referring Provider Renard SP[employer] WELDER BODY ASSEMBLY, SPOT WELDER BODY ASSEMBLY-C Bonny E Other Provider Dr. Tonio Fajardo Referring Provider Dr. Tonio Fajardo Primary Care Provider Renard SP[employer] WELDER BODY ASSEMBLY, SPOT WELDER BODY ASSEMBLY-C Bonny E Attending Provider Renard SPOT WELDER BODY ASSEMBLY, SPOT WELDER BODY ASSEMBLY-C Bonny E Referring Provider Renard SPOT WELDER BODY ASSEMBLY, SPOT WELDER BODY ASSEMBLY-C Bonny E Other Provider Dr. Tonio Fajardo Primary Care Provider Renard SP[employer] WELDER BODY ASSEMBLY, SPOT WELDER BODY ASSEMBLY-C Bonny E Attending Provider Renard SPOT WELDER BODY ASSEMBLY, SPOT WELDER BODY ASSEMBLY-C Bonny E Referring Provider [phone] Renard SPOT WELDER BODY ASSEMBLY, SPOT WELDER BODY ASSEMBLY-C Bonny E Other Provider Dr. Tonio Fajardo Primary Care Provider Renard SP[employer] WELDER BODY ASSEMBLY, SPOT WELDER BODY ASSEMBLY-C Bonny E Attending Provider Renard SPOT WELDER BODY ASSEMBLY, SPOT WELDER BODY ASSEMBLY-C Bonny E Referring Provider Renard SPOT WELDER BODY ASSEMBLY, SPOT WELDER BODY ASSEMBLY-C Bonny E Other Provider Dr. Tonio Fajardo Referring Provider Dr. Russ Zamora Attending Provider Dr. Tonio Fajardo Primary Care Provider Renard SP[employer] WELDER BODY ASSEMBLY, SPOT WELDER BODY ASSEMBLY-C Bonny E Attending Provider Renard SPOT WELDER BODY ASSEMBLY, SPOT WELDER BODY ASSEMBLY-C Bonny E Referring Provider Renard SPOT WELDER BODY ASSEMBLY, SPOT WELDER BODY ASSEMBLY-C Bonny E Other Provider Dr. Francisco Javier Lozada Attending Provider Dr. Joaquim Suárez Referring Provider Dr. Tonio Fajardo Primary Care Provider Renard SP[employer] WELDER BODY ASSEMBLY, SPOT WELDER BODY ASSEMBLY-C Bonny E Attending Provider Renard SPOT WELDER BODY ASSEMBLY, SPOT WELDER BODY ASSEMBLY-C Bonny E Referring Provider Renard SPOT WELDER BODY ASSEMBLY, SPOT WELDER BODY ASSEMBLY-C Bonny E Other Provider Dr. Tonio Fajardo Referring Provider Dr. Russ Zamora Attending Provider Dr. Francisco Jvaier Lozada Attending Provider Dr. Joaquim Suárez Referring Provider Dr. Tonio Fajardo Primary Care Provider [phone] Brittny SPOT WELDER BODY ASSEMBLY, SPOT WELDER BODY ASSEMBLY-C Lorie Attending Provider RICKIE Alejandra Attending Provider [...] Provider Brittny CAMPUZANO-C, Lorie Attending Provider Brittny SPOT WELDER BODY ASSEMBLY-C, Lorie Referring Provider Brittny CAMPUZANO-C, Lorie Other Provider Dr. Tyrell Uriarte DO Attending Provider Scotty , Dr. Elizalde Attending Provider Sera STRATTON, Dr. Solano Attending Provider Sera STRATTON, Dr. Solano Referring Provider Scotty MCGEE, Dr. Elizalde Primary Care Provider [place] , Dr. Milligan Other Provider Scotyt MCGEE, Dr. Elizalde Primary Care Provider Scotty [...] Shadi STRATTON, Dr. Graham Other Provider Michael SPOT WELDER BODY ASSEMBLY-C, Iker Stephens Other Provider Corina DAMIAN, Leslie [...] Provider Shadi STRATTON, Dr. Graham Other Provider [facility] SPOT WELDER BODY ASSEMBLY-C, Iker Stephens Other Provider Leslie Alejandra Other [...] Dr. Santos Hsu MD Attending Provider [phone] Carol Sousa Attending Provider Unavailable Geovani STRATTON, Dr. Valdez Lu Admit Provider Geovani STRATTON, Dr. Valdez Lu Attending Provider Dr. Daniel Brownlee DO Emergency Provider DR TONIO FAJARDO DO Primary Care Physician Dr. Daniel Brownlee DO Attending Provider Dr. Valdez Olivo MD, Chi Referring Provider Dr. Casper Iniguez DO Emergency Provider Hira MCGEE, Dr. Shirley Emergency Provider Lady MCGEE, Dr. Ames Admit Provider [phone] Lady MCGEE, Dr. Ames Attending Provider Lady MCGEE, Dr. Ames Other Provider Xena MCGEE, Dr. Elizalde Attending Provider [phone] Xena MCGEE, Dr. Elizalde Other Provider SUSAN STRATTON, ANS Attending Unavailable HALLIE STRATTON, DR DAVID Ovalle Admitting Unavailable ABBI CARMEN MD, V Consulting Unavailable SCOTTY MCGEE, DR TONIO Ovalle Primary Care Unavailab samm Goddard DO, Dr. Robert Other Provider Elijah SPOT WELDER BODY ASSEMBLY-C, Karol Other Provider Graeme SPOT WELDER BODY ASSEMBLY-C, Evelia Other Provider Yulia Suh Other Provider Friend , Dr. Robert Attending Provider Aayush, Issa Attending Unavailable Scotty, Tonio Primary Care Unavailable Scotty, Tonio Primary Care Unavailable Aayush, Issa Attending Unavailable Aayush, Henderson Referring Unavailable Scotty, Tonio Primary Care Unavailable Leslie Alejandra Referring Unavail able Aayush, Issa Attending Unavailable Carol Sousa Attending Unavailable Scotty, Tonio Referring Unavailable Scotty, Tonio Primary Care Unavailable Nicola Roman Attending Unavailable Nicola Lindsey Admitting Unavailable Manjit, Jayaprakas Consulting Unavailable Scotty, Tonio Primary Care Unavailable de Nicola Madison Consulting Unavailable Grzegorz, Deric Consulting Unavailable Aayush, Issa Consulting Unavailable Scotty, Tonio Primary Care Unavailable Manjit, Jayaprakas Consulting Unavailable Santos Hsu Attending Unavailable Nicola Lindsey Admitting Unavailable de Nicola Madison Consulting Unavailable Grzegorz, Deric Consulting Unavailable Aayush, Henderson Consulting Unavailable Nicola Roman Consulting Unavailable Nicola Roman Attending Unavailable Aayush, Henderson Attending Unavailable Russ Zamora Attending Unavailable Russ Zamora Referring Unavailable Scotty, Tonio Primary Care Unavailable Srini Choi Consulting Unavailable Scotty, Tonio Attending Unavailable Scotty, Tonio Primary Care Unavailable Scotty, Tonio Primary Care Unavailable Joaquim Suárez Attending Unavailable Joaquim Suárez Referring Unavailable Scotty, Tonio Primary Care Unavailable SuárezJoaquim Referring Unavailable SuárezJoaquim Attending Unavailable Scotty, Tonio Primary Care Unavailable Russ Zamora Attending Unavailable Russ Zamora Referring Unavailable Scotty, Tonio Primary Care Unavailable Scotty, Tonio Attending Unavailable Scotty, Tonio Referring Unavailable Mart SPOT WELDER BODY ASSEMBLY, Lorie Attending Unavailable Mart SPOT WELDER BODY ASSEMBLY, Lorie Referring Unavailable Scotty, Tonio Primary Care Unavailable Scotty, Tonio Primary Care Unavailable Geovani, Valdez Chi Attending Unavailable Geovani, Valdez Chi Referring Unavailable Geovani, Valdez Chi Admitting Unavailable Scotty, Tonio Primary Care Unavailable Scotty, Tonio Referring Unavailable Jakob Goddard Attending Unavailable Leslie Alejandra Referring Unavail able Scotty, Tonio Primary Care Unavailable Leslie Alejandra Attending Unavail able Scotty, Tonio Primary Care Unavailable Geovani, Valdez Chi Attending Unavailable Geovani, Valdez Chi Admitting Unavailable Scotty, Tonio Primary Care Unavailable Geovani, Valdez Chi Attending Unavailable Geovani, Valdez Chi Admitting Unavailable Deric Lantigua Consulting Unavailable Jakob Goddard Consulting Unavailable Karol Nava Consulting Unavailable Evelia Bedolla Consulting Unavailable Yulia Mccormick Consulting Unavailable Scotty, Tonio Primary Care Unavailable Debi Cm Attending Unavailable Rafa Lang Admitting Unavailable LangRafa Consulting Unavailable Scotty, Tonio Primary Care Unavailable Kwaku Narayanan Admitting Unavailable Tonio Mccallum Attending Unavailable Kwaku Narayanan Consulting Unavailable Tonio Mccallum Consulting Unavailable PeterMarjorie Attending Unavailable Scotty, Tonio Primary Care Unavailable Peter, Marjorie Attending Unavailable Scotty, Tonio Primary Care Unavailable Nicola Lindsey Admitting Unavailable Nicola Lindsey Consulting Unavailable Paris Tiwari Consulting Unavailable Susan Hawley Consulting Unavailable Nicolette Mcdonald Consulting Unavailable Peter, Marjorie Consulting Unavailable Martin Vivas Consulting Unavailable Jose Lai Consulting Unavailable Issa Looney Consulting Unavailable Chago Miller Consulting Unavailable Willian Glaser Consulting Unavailable Nagajothi, Nagapradee Consulting UnavailCorrie Limanivasa Consulting Unavailable Arthur, Santos Consulting Unavailable Michael SPOT WELDER BODY ASSEMBLY, Iker Stephens Consulting Unavailable Corina DAMIAN, Leslie Cruz Consulting Unavail able Tadeo Thakkar Consulting Unavailable Grzegorz, Deric Consulting Unavailable Grzegorz, Deric Attending Unavailable Scotty, Tonio Primary Care Unavailable Rafa Lang Attending Unavailable Marjorie Green Attending Unavailable Scotty, Tonio Primary Care Unavailable Leslie Alejandra Attending Unavail able Scotty, Tonio Primary Care Unavailable Scotty, Tonio Referring Unavailable Scotty, Tonio Primary Care Unavailable Scotty, Tonio Referring Unavailable Russ Zamora Attending Unavailable AayushIssa Attending Unavailable Scotty, Tonio Primary Care Unavailable Scotty, Tonio Primary Care Unavailable Scotty, Tonio Referring Unavailable Carol Sousa Attending Unavailable AayushIssa Attending Unavailable Scotty, Tonio Primary Care Unavailable AayushAstonIssa Referring Unavailable Scotty, Tonio Primary Care Unavailable Brittny SPOT WELDER BODY ASSEMBLY, Lorie Attending Unavailable Scotty, Tonio Referring Unavailable Scotty, Tonio Referring Unavailable Scotty, Tonio Primary Care Unavailable Leslie Alejandra Attending Unavail able AayushIssa ponce Attending Unavailable Scotty, Tonio Primary Care Unavailable Scotty, Tonio Primary Care Unavailable Kwaku Narayanan Admitting Unavailable Kwaku Narayanan Attending Unavailable Kwaku Narayanan Consulting Unavailable Nicola Lindsey Attending Unavailable Scotty, Tonio Primary Care Unavailable Scotty, Tonio Referring Unavailable Friend, Jakob Consulting Unavailable FriendJakob Attending Unavailable Mart SPOT WELDER BODY ASSEMBLY, Lorie Referring Unavailable Scotty, Tonio Primary Care Unavailable Brittny SPOT WELDER BODY ASSEMBLY, Lorie Consulting Unavailable Tyrell Uriarte Attending Unavailable Scotty, Tonio Primary Care Unavailable Kwaku Narayanan Admitting Unavailable Termigueky, Tonio Attending Unavailable Mosteller Kwaku Consulting Unavailable Scotty, Tonio Primary Care Unavailable AidaCarmelina Attending Unavailable AidaCarmelina Referring Unavailable Scotty, Tonio Primary Care Unavailable Leslie Alejandra Attending Unavail able Leslie Alejandra Referring Unavail able Scotty, Tonio Primary Care Unavailable Alex Matias Attending Unavailable Scotty, Tonio Primary Care Unavailable Daniel Brownlee Attending Unavailable Scotty, Tonio Primary Care Unavailable Nicola Lindsey Admitting Unavailable Grzegorz, Deric Attending Unavailable Nicola Lindsey Consulting Unavailable Paris Tiwari Consulting Unavailable Susan Hawley Consulting Unavailable Nicolette Mcdonald Consulting Unavailable Marjorie Green Consulting Unavailable Martin Vivas Consulting Unavailable Jose Lai Consulting Unavailable Issa Looney Consulting Unavailable Chago Miller Consulting Unavailable Willian Glaser Consulting Unavailable Orly Mitchell Consulting UnavailReinaldo Lima Consulting Unavailable Santos Hsu Consulting Unavailable Michael CAMPUZANO, Iker Stephens Consulting Unavailable Leslie Alejandra Consulting Unavail able Tadeo Thakkar Consulting Unavailable Deric Lantigua Attending Unavailable Nicola Lindsey Attending Unavailable Willian Glaser Attending Unavailable Allergies Allergy Classification Reported Allergen(s) Allergy Type Date of Onset Reaction(s) Facility (20 sources) Ibuprofen; Translations: [IBUPROFEN] Drug Allergy 2 Shortness of Breath [facility] Work Phone: (1 source) Ibuprofen Drug Allergy 5 [facility] Repository Medications Current Medications Medication Drug Class(es) [...] Start: 04-17-2025 End: 04-23-2025 Start: 08-22-2017 End: 12-07-2023 Comment on above: Take by mouth. cholecalciferol 0.125 mg oral capsule (20 sources) Vitamin D Start: take 125 ug by mouth twice daily [...] on above: Take by mouth. Fish,Bora,Flax Oils-Om3,6,9no1 ([place] 3-6-9) 1,200 mg Capsule (8 sources) Start: 11-02-2021 take 1 capsule by mouth twice daily Fish,Bora,Flax Oils-Om3,6,9no1 ([place] 3-6-9) 1,200 mg Capsule Active 1 CAP PO TWICE A DAY November 02, 2021 1:31pm Start: 11-02-2021 take 1 capsule by mo [facility] twice daily Fish,Bora,Flax Oils-Om3,6,9no1 ([place] 3-6-9) 1,200 mg Capsule Active 1 CAP [...] Discontinued 1 {tbl} PO TWICE A DAY January 12, 2023 [...] on above: Take 1 capsule by mo [facility] three times daily for 10 days. ciprofloxacin 250 mg oral ta blet (20 sources) Quinolone Antimicrobial Start: 08-28-2013 End: 11-26-2013 0.3 ml darbepoetin soctt 0.2 mg/ml prefilled syringe (20 sources) Erythropoiesis-stimulating [...] Fills Dispensed: 0 Fish Oil-Fat Acid Comb.8-Hb137 ([place] 3-6-9 1,200 Mg Softgel) 1,200 MG capsule (20 sources) Start: 12-03-2013 End: 03-21-2017 Fish Oil-Fat Acid Comb.8-Hb137 ([place] 3-6-9 1,200 Mg Softgel) 1,200 MG capsule Discontinued 1000 MG PO TWICE A DAY December 03, 2013 11:07am March 21, 2017 2:47pm Start: 12-03-2013 End: 03-21-2017 Fish Oil-Fat Acid Comb.8-Hb1 37 ([place] 3-6-9 1,200 Mg Softgel) 1,200 MG capsule Discontinued 1000 mg PO TWICE A DAY December 03, 2013 12:00am March 21, 2017 2:47pm Start: 12-03-2013 End: 03-21-2017 Fish Oil-Fat Acid Comb.8-Hb1 37 ([place] 3-6-9 1,200 Mg Softgel) 1,200 MG capsule Discontinued 1000 MG PO TWICE A DAY December 02, 2013 11:00pm March 21, 2017 1:47pm Start: 12-03-2013 End: 03-21-2017 Fish Oil-Fat Acid Comb.8-Hb1 37 ([place] 3-6-9 1,200 Mg Softgel) 1,200 MG capsule [...] 21, 2017 12:00am November 19, 2019 3:48pm Tzqbbfawssd-Nivegvphz-Edafdl er (20 sources) Start: 02-15-2024 End: 09-25-2024 Start: 02-15-2024 End: 09-25-2024 Dcmowgwcfja-Aqldzsriu-Xjyhfr er (Trelegy Ellipta) 200-62.5-25 mcg blister with device Discontinued 1 NMA INHALATION DAILY 3 February 15, 2024 12:00am September 25, 2024 2:02pm Start: 02-15-2024 End: 09-25-2024 Kgvswnsycgm-Eztwgbnbw-Uagjhd er (Trelegy Ellipta) 200-62.5-25 mcg blister with [...] August 25, 2013 10:01am lactobacillus acidophilus 10 [id number] unt oral capsule (20 sources) Start: 05-24-2022 [...] other malignant neoplasm of bronchus and lung] Onset: 05-13-2025 10-03-2022 Episodic Cardiac dysrhythmias (20 sources) Irregular heart beat; Translations: [Cardiac arrhythmia, unspecified] Onset: 04-03-2025 07-25-2023 Chronic Cardiac dysrhythmias (20 sources) Bradycardia; Translations: [Bradycardia, unspecified] 01-06-2021 Episodic Chronic kidney disease (20 sources) Chronic kidney disease stage 3; Translations: [Stage 3 chronic kidney disease] Onset: 03-27-2025 08-25-2020 Chronic Chronic kidney disease (7 sources) Chronic kidney disease; Translations: [Chronic kidney [...] heart failure; Translations: [Heart failure, unspecified] Onset: 04-13-2025 03-04-2025 Chronic Coronary atherosclerosis and other heart disease (20 sources) Coronary atherosclerosis; Translations: [Atherosclerotic heart disease of tangir[place]q coronary artery without angina pectoris] Onset: 04-13-2025 [...] anemia 04-13-2025 Episodic Deficiency and other anemia (2 sources) Anemia, unspecified; Translations: [Anemia, unspecified] Onset: 04-13-2025 [...] disorders (20 sources) Hyperkalemia; Translations: [Hyperkalemia] Onset: 05-06-2025 03-04-2025 Episodic Genitourinary symptoms and ill-defined conditions [...] sources) Long-term current use of anticoagulant; Translations: [detention (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 of anticoagulants] 03-04-2025 Episodic Other aftercare (17 sources) Long-term current use of drug therapy; Translations: [intermediate manager (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 of 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/antipl atelets] 03-15-2025 Episodic Other aftercare (1 source) detention (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 of anticoagulants; Translations: [intermediate manager (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 of anticoagulants] Onset: 05-06-2025 Episodic Other circulatory disease (6 sources) Peripheral arterial occlusive disease; Translations: [Disorder of arteries and arterioles, unspecified] 04-23-2025 Chronic Other circulatory disease (1 source) Other specified peripheral vascular diseases; Translations: [Other specified peripheral vascular diseases] Onset: 07-07-2024 Chronic Other circulatory disease (11 sources) Orthostatic hypotension; Translations: [Orthostatic hypotension] 04-19-2025 Episodic Other circulatory disease (1 source) Orthostatic hypotension; Translations: [Orthostatic hypotension] Onset: 04-29-2025 Episodic Other diseases of veins and lymphatics [...] Episodic Other lower respiratory disease (1 source) Personal history of other diseases of the respiratory system; Translations: [Personal history of other diseases of the respiratory system] Onset: 05-13-2025 Episodic Other lower respiratory disease (1 source) Other abnormalities of breathing; Translations: [Other abnormalities of breathing] Onset: 05-06-2025 Episodic Other nervous system disorders (1 source) Polyneuropathy; Translations: [Polyneuropathy, unspecified] Onset: 04-13-2025 Chronic Other nervous system disorders (1 source) Peripheral nerve disease 04-13-2025 Chronic Other nervous system disorders (1 source) Polyneuropathy, unspecified; Translations: [Polyneuropathy, unspecified] Onset: 04-13-2025 Chronic Other nervous system disorders (1 source) Disorder of the autonomic nervous system, unspecified; Translations: [Disorder of the autonomic nervous system, unspecified] Onset: 05-13-2025 Chronic Other nutritional; endocrine; and metabolic disorders [...] Translations: [Acute respiratory failure with hypoxia] Onset: 05-13-2025 04-10-2025 Episodic Septicemia (except in labor) (2 sources) Sepsis; Translations: [Sepsis, unspecified organism] Onset: 04-13-2025 Episodic Substance-related disorders (20 sources) Tobacco dependence in remission; 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, cigarettes, in remission] Chronic Syncope (13 sources) Syncope; Translations: [Syncope and collapse] Onset: 04-29-2025 04-19-2025 Episodic Unclassified (1 source) Acute cough; [...] Range Facility Basic Metabolic Profile (BMP )on 05-22-2025 BUN Normal 12-06 [facility] Comment on above: Result Comment: Canc elled via OM: Order cancelled - Patient discharged Performed By: #### L 500.2500, L100.0100 ####[facility] [id number] [place], [address] BUN/CRE Normal 06-08 [facility] Comment on above: Result Comment: Canc elled via OM: Order cancelled - Patient discharged Performed By: #### L 500.2500, L100.0100 ####[facility] [id number] [facility], [address] Calcium Normal 7.6-11.0 [facility] Comment on above: Result Comment: Canc elled via OM: Order cancelled - Patient discharged Performed By: #### L 500.2500, L100.0100 ####[facility] [id number] [place], [address] CL Normal 98-108 [facility] Comment on above: Result Comment: Canc elled via OM: Order cancelled - Patient discharged Performed By: #### L 500.2500, L100.0100 ####[facility] [id number] [place], [address] CO2 Normal 21.0-32.0 [facility] Comment on above: Result Comment: Canc elled via OM: Order cancelled - Patient discharged Performed By: #### L 500.2500, L100.0100 ####[facility] [id number] [place], [address] CREAT,SERUM Normal 0.70-1.20 [facility] Comment on above: Result Comment: Canc elled via OM: Order cancelled - Patient discharged Performed By: #### L 500.2500, L100.0100 ####[facility] [id number] [place], [address] eGFR Normal >60 [facility] Comment on above: Result Comment: Canc elled via OM: Order cancelled - Patient discharged Performed By: #### L 500.2500, L100.0100 ####[facility] [id number] [place], [address] GAP Normal 5-15 [facility] Comment on above: Result Comment: Canc elled via OM: Order cancelled - Patient discharged Performed By: #### L 500.2500, L100.0100 ####[facility] [address] [place], [address] GLU Normal 70-99 [facility] Comment on above: Result Comment: Canc elled via OM: Order cancelled - Patient discharged Performed By: #### L 500.2500, L100.0100 ####[facility] [address] [place], [address] Potassium Normal 3.3-5.1 [facility] Comment on above: Result Comment: Canc elled via OM: Order cancelled - Patient discharged Performed By: #### L 500.2500, L100.0100 ####[facility] [address] [place], [address] Basic Metabolic Profile (BMP) Normal 133-145 [facility] Comment on above: Result Comment: Canc elled via OM: Order cancelled - Patient discharged Performed By: #### L 500.2500, L100.0100 ####[facility] [address] [place], [address] CBC W/Diff, Automatedon 10-0 Absolute Neut Normal 2.0-7.7 [facility] Comment on above: Result Comment: Canc elled via OM: Order cancelled - Patient discharged Performed By: #### L 500.2500, L100.0100 ####[facility] [address] [place], [address] HCT Normal 40-54 [facility] Comment on above: Result Comment: Canc elled via OM: Order cancelled - Patient discharged Performed By: #### L 500.2500, L100.0100 ####[facility] [address] [place], [address] HGB Normal 13.0-16.5 [facility] Comment on above: Result Comment: Canc elled via OM: Order cancelled - Patient discharged Performed By: #### L 500.2500, L100.0100 ####[facility] [address] [place], [address] MCH Normal 27.0-32.0 [facility] Comment on above: Result Comment: Canc elled via OM: Order cancelled - Patient discharged Performed By: #### L 500.2500, L100.0100 ####[facility] [address] [place], [address] MCHC Normal 32-36 [facility] Comment on above: Result Comment: Canc elled via OM: Order cancelled - Patient discharged Performed By: #### L 500.2500, L100.0100 ####[facility] [address] [place], [address] MCV Normal 80-94 [facility] Comment on above: Result Comment: Canc elled via OM: Order cancelled - Patient discharged Performed By: #### L 500.2500, L100.0100 ####[facility] [address] [place], [address] NEUT% Normal 47-70 [facility] Comment on above: Result Comment: Canc elled via OM: Order cancelled - Patient discharged Performed By: #### L 500.2500, L100.0100 ####[facility] [address] [place], [address] PLT Normal 150-450 [facility] Comment on above: Result Comment: Canc elled via OM: Order cancelled - Patient discharged Performed By: #### L 500.2500, L100.0100 ####[facility] [address] [place], [address] RBC Normal 4.6-6.2 [facility] Comment on above: Result Comment: Canc elled via OM: Order cancelled - Patient discharged Performed By: #### L 500.2500, L100.0100 ####[facility] [address] [place], [address] RDW CV Normal 11.6-14.6 [facility] Comment on above: Result Comment: Canc elled via OM: Order cancelled - Patient discharged Performed By: #### L 500.2500, L100.0100 ####[facility] [address] [place], [address] RDW SD Normal 35.1-43.9 [facility] Comment on above: Result Comment: Canc elled via OM: Order cancelled - Patient discharged Performed By: #### L 500.2500, L100.0100 ####[facility] [address] [place], [address] WBC Normal 4.4-11.0 [facility] Comment on above: Result Comment: Canc elled via OM: Order cancelled - Patient discharged Performed By: #### L 500.2500, L100.0100 ####[facility] [address] [place], [address] Basic Metabolic Profile (BMP )on 05-15-2025 BUN Normal 4-19 [facility] Comment on above: Result Comment: Canc elled via OM: Order cancelled - Patient discharged Performed By: #### L 100.0100, L500.2500 ####[facility] [address] [place], [address] BUN/CRE Normal 10-20 [facility] Comment on above: Result Comment: Canc elled via OM: Order cancelled - Patient discharged Performed By: #### L 100.0100, L500.2500 ####[facility] [address] [place], [address] Calcium Normal 7.6-11.0 [facility] Comment on above: Result Comment: Canc elled via OM: Order cancelled - Patient discharged Performed By: #### L 100.0100, L500.2500 ####[facility] [address] [place], [address] CL Normal 98-108 [facility] Comment on above: Result Comment: Canc elled via OM: Order cancelled - Patient discharged Performed By: #### L 100.0100, L500.2500 ####[facility] [address] [place], [address] CO2 Normal 21.0-32.0 [facility] Comment on above: Result Comment: Canc elled via OM: Order cancelled - Patient discharged Performed By: #### L 100.0100, L500.2500 ####[facility] [address] [place], [address] CREAT,SERUM Normal 0.70-1.20 [facility] Comment on above: Result Comment: Canc elled via OM: Order cancelled - Patient discharged Performed By: #### L 100.0100, L500.2500 ####[facility] [address] [place], [address] eGFR Normal >60 [facility] Comment on above: Result Comment: Canc elled via OM: Order cancelled - Patient discharged Performed By: #### L 100.0100, L500.2500 ####[facility] [address] [place], [address] GAP Normal 5-15 [facility] Comment on above: Result Comment: Canc elled via OM: Order cancelled - Patient discharged Performed By: #### L 100.0100, L500.2500 ####[facility] [address] [place], [address] GLU Normal 70-99 [facility] Comment on above: Result Comment: Canc elled via OM: Order cancelled - Patient discharged Performed By: #### L 100.0100, L500.2500 ####[facility] [address] [place], [address] Potassium Normal 3.3-5.1 [facility] Comment on above: Result Comment: Canc elled via OM: Order cancelled - Patient discharged Performed By: #### L 100.0100, L500.2500 ####[facility] [address] [place], [address] Basic Metabolic Profile (BMP) Normal 133-145 [facility] Comment on above: Result Comment: Canc elled via OM: Order cancelled - Patient discharged Performed By: #### L 100.0100, L500.2500 ####[facility] [address] [place], [address] CBC W/Diff, Automatedon 09-2 -2024 Absolute Neut Normal 2.0-7.7 [facility] Comment on above: Result Comment: Canc elled via OM: Order cancelled - Patient discharged Performed By: #### L 100.0100, L500.2500 ####[facility] [address] [place], [address] HCT Normal 40-54 [facility] Comment on above: Result Comment: Canc elled via OM: Order cancelled - Patient discharged Performed By: #### L 100.0100, L500.2500 ####[facility] [address] [place], [address] HGB Normal 13.0-16.5 [facility] Comment on above: Result Comment: Canc elled via OM: Order cancelled - Patient discharged Performed By: #### L 100.0100, L500.2500 ####[facility] [address] [place], [address] MCH Normal 27.0-32.0 [facility] Comment on above: Result Comment: Canc elled via OM: Order cancelled - Patient discharged Performed By: #### L 100.0100, L500.2500 ####[facility] [address] [place], [address] MCHC Normal 32-36 [facility] Comment on above: Result Comment: Canc elled via OM: Order cancelled - Patient discharged Performed By: #### L 100.0100, L500.2500 ####[facility] [address] [place], [address] MCV Normal 80-94 [facility] Comment on above: Result Comment: Canc elled via OM: Order cancelled - Patient discharged Performed By: #### L 100.0100, L500.2500 ####[facility] [address] [place], [address] NEUT% Normal 47-70 [facility] Comment on above: Result Comment: Canc elled via OM: Order cancelled - Patient discharged Performed By: #### L 100.0100, L500.2500 ####[facility] [address] [place], [address] PLT Normal 150-450 [facility] Comment on above: Result Comment: Canc elled via OM: Order cancelled - Patient discharged Performed By: #### L 100.0100, L500.2500 ####[facility] [address] [place], [address] RBC Normal 4.6-6.2 [facility] Comment on above: Result Comment: Canc elled via OM: Order cancelled - Patient discharged Performed By: #### L 100.0100, L500.2500 ####[facility] [address] [place], [address] RDW CV Normal 11.6-14.6 [facility] Comment on above: Result Comment: Canc elled via OM: Order cancelled - Patient discharged Performed By: #### L 100.0100, L500.2500 ####[facility] [address] [place], [address] RDW SD Normal 35.1-43.9 [facility] Comment on above: Result Comment: Canc elled via OM: Order cancelled - Patient discharged Performed By: #### L 100.0100, L500.2500 ####[facility] [address] [place], [address] WBC Normal 4.4-11.0 [facility] Comment on above: Result Comment: Canc elled via OM: Order cancelled - Patient discharged Performed By: #### L 100.0100, L500.2500 ####[facility] [address] [place], [address] Bedside Glucoseon 05-13-2025 FINGERSTICK GLU 145 mg/dL High 74-106 [facility] Comment on above: Result Comment: KODY GEMENT OF PATIENT CARE PER NURSING PROTOCOL Performed By: #### L 501.080 ####[facility] [address] [place], [address] FINGERSTICK GLU 159 mg/dL High 74-106 [facility] Comment on above: Result Comment: KODY GEMENT OF PATIENT CARE PER NURSING PROTOCOL Performed By: #### L 501.080 ####[facility] [address] [place], [address] FINGERSTICK GLU 196 mg/dL High 74-106 [facility] Comment on above: Result Comment: KODY GEMENT OF PATIENT CARE PER NURSING PROTOCOL Performed By: #### L 501.080 ####[facility] [address] [place], [address] FINGERSTICK GLU 130 mg/dL High -106 [facility] Comment on above: Result Comment: KODY GEMENT OF PATIENT CARE PER NURSING PROTOCOL Performed By: #### L 501.080 ####[facility] [address] [place], [address] CBC W/Diff, Automatedon 04-21 Absolute Lymph 0.74 X10 3/uL Low 0.83-4.51 [facility] Comment on above: Performed By: #### L 501.9520, L500.4050, L501.5200, L501.2300, L300.3900, L100.0100 ####[facility] [address] [place], [address] Absolute Neut 6.6 X10 3/uL Normal 2.0-7.7 [facility] Comment on above: Performed By: #### L 501.9520, L500.4050, L501.5200, L501.2300, L300.3900, L100.0100 ####[facility] [address] [place], [address] Basophils/100 WBC (Bld) 0.4 % Normal 0-1 [facility] Comment on above: Performed By: #### L 501.9520, L500.4050, L501.5200, L501.2300, L300.3900, L100.0100 ####[facility] [address] [place], [address] Eosinophils/100 WBC (Bld) 0.6 % Normal 0-5 [facility] Comment on above: Performed By: #### L 501.9520, L500.4050, L501.5200, L501.2300, L300.3900, L100.0100 ####[facility] [address] [place], [address] Erythrocyte distribution width (RBC) [Ratio] 16.2 % High 11.6-14.6 [facility] Comment on above: Performed By: #### L 501.9520, L500.4050, L501.5200, L501.2300, L300.3900, L100.0100 ####[facility] [address] [place], [address] Hematocrit (Bld) [Volume fraction] 32.1 % Low 40-54 [facility] Comment on above: Performed By: #### L 501.9520, L500.4050, L501.5200, L501.2300, L300.3900, L100.0100 ####[facility] [address] [place], [address] Hemoglobin (Bld) [Mass/Vol] 9.7 g/dL Low 13.0-16.5 [facility] Comment on above: Performed By: #### L 501.9520, L500.4050, L501.5200, L501.2300, L300.3900, L100.0100 ####[facility] [address] [place], [address] IG% 0.500 Normal 0.0-0.9 [facility] Comment on above: Result Comment: IG% - Immature Granulocytes (promyelocytes, myelocytes andmetamyelocytes) > 1% indicates that a LEFT SHIFT is Present. Performed By: #### L 501.9520, L500.4050, L501.5200, L501.2300, L300.3900, L100.0100 ####[facility] [address] [place], [address] Lymphocytes/100 WBC (Bld) 8.6 % Low 19-41 [facility] Comment on above: Performed By: #### L 501.9520, L500.4050, L501.5200, L501.2300, L300.3900, L100.0100 ####[facility] [address] [place], [address] MCH (RBC) [Entitic mass] 27.5 pg Normal 27.0-32.0 [facility] Comment on above: Performed By: #### L 501.9520, L500.4050, L501.5200, L501.2300, L300.3900, L100.0100 ####[facility] [address] [place], [address] MCHC (RBC) [Mass/Vol] 30.2 g/dL Low 32-36 [facility] Comment on above: Performed By: #### L 501.9520, L500.4050, L501.5200, L501.2300, L300.3900, L100.0100 ####[facility] [address] [place], [address] MCV (RBC) [Entitic vol] 90.9 fL Normal 80-94 [facility] Comment on above: Performed By: #### L 501.9520, L500.4050, L501.5200, L501.2300, L300.3900, L100.0100 ####[facility] [address] [place], [address] Monocytes/100 WBC (Bld) 12.7 % High 0-10 [facility] Comment on above: Performed By: #### L 501.9520, L500.4050, L501.5200, L501.2300, L300.3900, L100.0100 ####[facility] [address] [place], [address] Neutrophils/100 WBC (Bld) 77.2 % High 47-70 [facility] Comment on above: Performed By: #### L 501.9520, L500.4050, L501.5200, L501.2300, L300.3900, L100.0100 ####[facility] [address] [place], [address] Nucleated RBC (Bld) [#/Vol] 0 10*3/uL Normal 0-5 [facility] Comment on above: Performed By: #### L 501.9520, L500.4050, L501.5200, L501.2300, L300.3900, L100.0100 ####[facility] [address] [place], [address] Platelet mean volume (Bld) [Entitic vol] 10.4 fL Normal 6.2-12.0 [facility] Comment on above: Performed By: #### L 501.9520, L500.4050, L501.5200, L501.2300, L300.3900, L100.0100 ####[facility] [address] [place], [address] Platelets (Bld) [#/Vol] 191 10*3/uL Normal 150-450 [facility] Comment on above: Performed By: #### L 501.9520, L500.4050, L501.5200, L501.2300, L300.3900, L100.0100 ####[facility] [address] [place], [address] RBC (Bld) [#/Vol] 3.53 10*6/uL Low 4.6-6.2 [facility] Comment on above: Performed By: #### L 501.9520, L500.4050, L501.5200, L501.2300, L300.3900, L100.0100 ####[facility] [address] [place], [address] RDW SD 54.3 fl High 35.1-43.9 [facility] Comment on above: Performed By: #### L 501.9520, L500.4050, L501.5200, L501.2300, L300.3900, L100.0100 ####[facility] [address] [place], [address] WBC (Bld) [#/Vol] 8.6 10*3/uL Normal 4.4-11.0 [facility] Comment on above: Performed By: #### L 501.9520, L500.4050, L501.5200, L501.2300, L300.3900, L100.0100 ####[facility] [address] [place], [address] Comprehensive Metabolic [facility] 05-13-2025 Albumin [Mass/Vol] 3.4 g/dL Normal 3.4-4.8 [facility] Comment on above: Performed By: #### L 501.9520, L500.4050, L501.5200, L501.2300, L300.3900, L100.0100 ####[facility] [address] [place], [address] Albumin/Globulin [Mass ratio] 0.9 {ratio} Normal 0.9-2.4 [facility] Comment on above: Performed By: #### L 501.9520, L500.4050, L501.5200, L501.2300, L300.3900, L100.0100 ####[facility] [address] [place], [address] ALK PHOS 79 U/L Normal 40-129 [facility] Comment on above: Performed By: #### L 501.9520, L500.4050, L501.5200, L501.2300, L300.3900, L100.0100 ####[facility] [address] [place], [address] ALT [Catalytic activity/Vol] 11 U/L Normal <=46 [facility] Comment on above: Performed By: #### L 501.9520, L500.4050, L501.5200, L501.2300, L300.3900, L100.0100 ####[facility] [address] [place], [address] AST [Catalytic activity/Vol] 20 U/L Normal <=37 [facility] Comment on above: Performed By: #### L 501.9520, L500.4050, L501.5200, L501.2300, L300.3900, L100.0100 ####[facility] [address] [place], [address] Bilirubin [Mass/Vol] 0.63 mg/dL Normal 0.00-1.30 [facility] Comment on above: Performed By: #### L 501.9520, L500.4050, L501.5200, L501.2300, L300.3900, L100.0100 ####[facility] [address] [place], [address] BUN/CRE 15.8 RATIO Normal 10-20 [facility] Comment on above: Performed By: #### L 501.9520, L500.4050, L501.5200, L501.2300, L300.3900, L100.0100 ####[facility] [address] [place], [address] Calcium [Mass/Vol] 9.4 mg/dL Normal 7.6-11.0 [facility] Comment on above: Performed By: #### L 501.9520, L500.4050, L501.5200, L501.2300, L300.3900, L100.0100 ####[facility] [address] [place], [address] Chloride [Moles/Vol] 94 mmol/L Low 98-108 [facility] Comment on above: Performed By: #### L 501.9520, L500.4050, L501.5200, L501.2300, L300.3900, L100.0100 ####[facility] [address] [place], [address] CO2 [Moles/Vol] 39.3 mmol/L High 21.0-32.0 [facility] Comment on above: Performed By: #### L 501.9520, L500.4050, L501.5200, L501.2300, L300.3900, L100.0100 ####[facility] [address] [place], [address] Creatinine [Mass/Vol] 1.46 mg/dL High 0.70-1.20 [facility] Comment on above: Performed By: #### L 501.9520, L500.4050, L501.5200, L501.2300, L300.3900, L100.0100 ####[facility] [address] [place], [address] ECRCL 36.42 ml/min Low 50-250 [facility] Comment on above: Performed By: #### L 501.9520, L500.4050, L501.5200, L501.2300, L300.3900, L100.0100 ####[facility] [address] [place], [address] GAP 10 Normal 5-15 [facility] Comment on above: Performed By: #### L 501.9520, L500.4050, L501.5200, L501.2300, L300.3900, L100.0100 ####[facility] [address] [place], [address] GFR/1.73 sq M.predicted among non-blacks MDRD (S/P/Bld) [Vol rate/Area] 48 mL/min/{1.73_m2} Low >60 [facility] Comment on above: Result Comment: mL/m in/1.73m2 CKD-EPI Creatinine Equation (2020) Performed By: #### L 501.9520, L500.4050, L501.5200, L501.2300, L300.3900, L100.0100 ####[facility] [address] [place], [address] Globulin (S) [Mass/Vol] 3.7 g/dL Normal 2.2-4.2 [facility] Comment on above: Performed By: #### L 501.9520, L500.4050, L501.5200, L501.2300, L300.3900, L100.0100 ####[facility] [address] [place], [address] Glucose [Mass/Vol] 125 mg/dL High 70-99 [facility] Comment on above: Performed By: #### L 501.9520, L500.4050, L501.5200, L501.2300, L300.3900, L100.0100 ####[facility] [address] [place], [address] Potassium [Moles/Vol] 3.4 mmol/L Normal 3.3-5.1 [facility] Comment on above: Performed By: #### L 501.9520, L500.4050, L501.5200, L501.2300, L300.3900, L100.0100 ####[facility] [address] [place], [address] Sodium [Moles/Vol] 143 mmol/L Normal 133-145 [facility] Comment on above: Performed By: #### L 501.9520, L500.4050, L501.5200, L501.2300, L300.3900, L100.0100 ####[facility] [address] [place], [address] T PROT 7.1 g/dL Normal 5.9-8.4 [facility] Comment on above: Performed By: #### L 501.9520, L500.4050, L501.5200, L501.2300, L300.3900, L100.0100 ####[facility] [address] [place], [address] Urea nitrogen [Mass/Vol] 23 mg/dL High 4-19 [facility] Comment on above: Performed By: #### L 501.9520, L500.4050, L501.5200, L501.2300, L300.3900, L100.0100 ####[facility] [address] [place], [address] Gram Stainon 05-13-2025 GS Centrifuged Specimen ? Culture performed on centrifuged specimen Gram Stain 1+ Red Blood Cells No White Blood Cells No organisms seen Normal [facility] Comment on above: Performed By: #### L 200.0200, M100.2000 ####[facility] [address] [place], [address] Magnesiumon 05-13-2025 Magnesium [Mass/Vol] 2.2 mg/dL Normal 1.5-2.2 [facility] Comment on above: Performed By: #### L 501.9520, L500.4050, L501.5200, L501.2300, L300.3900, L100.0100 ####[facility] [address] [place], [address] Phosphoruson 05-13-2025 Phosphate [Mass/Vol] 3.7 mg/dL Normal 2.7-4.5 [facility] Comment on above: Performed By: #### L 501.9520, L500.4050, L501.5200, L501.2300, L300.3900, L100.0100 ####[facility] [address] [place], [address] Prothrombin Time w/INRon INR Coag (PPP) [Relative time] 1.4 {INR} Normal [facility] Comment on above: Performed By: #### L 501.9520, L500.4050, L501.5200, L501.2300, L300.3900, L100.0100 ####[facility] [address] [place], [address] PT Coag (PPP) [Time] 17.6 s High 11.7-14.9 [facility] Comment on above: Performed By: #### L 501.9520, L500.4050, L501.5200, L501.2300, L300.3900, L100.0100 ####[facility] [address] [place], [address] Thyroid Stim Hormone (TSH)on 05-13-2025 TSH 4.280 uIU/mL High 0.300-4.20 0 [facility] Comment on above: Performed By: #### L 501.9520, L500.4050, L501.5200, L501.2300, L300.3900, L100.0100 ####[facility] [address] [place], [address] Basic Metabolic Profile (BMP )on 05-12-2025 BUN/CRE 15.2 RATIO Normal 10-20 [facility] Comment on above: Performed By: #### L 300.3900, L500.2500, L100.0100 ####[facility] [address] [place], [address] Calcium [Mass/Vol] 9.2 mg/dL Normal 7.6-11.0 [facility] Comment on above: Performed By: #### L 300.3900, L500.2500, L100.0100 ####[facility] [address] [place], [address] Chloride [Moles/Vol] 95 mmol/L Low 98-108 [facility] Comment on above: Performed By: #### L 300.3900, L500.2500, L100.0100 ####[facility] [address] [place], [address] CO2 [Moles/Vol] 36.7 mmol/L High 21.0-32.0 [facility] Comment on above: Performed By: #### L 300.3900, L500.2500, L100.0100 ####[facility] [address] [place], [address] Creatinine [Mass/Vol] 1.49 mg/dL High 0.70-1.20 [facility] Comment on above: Performed By: #### L 300.3900, L500.2500, L100.0100 ####[facility] [address] [place], [address] ECRCL 35.68 ml/min Low 50-250 [facility] Comment on above: Performed By: #### L 300.3900, L500.2500, L100.0100 ####[facility] [address] [place], [address] GAP 11 Normal 5-15 [facility] Comment on above: Performed By: #### L 300.3900, L500.2500, L100.0100 ####[facility] [address] [place], [address] GFR/1.73 sq M.predicted among non-blacks MDRD (S/P/Bld) [Vol rate/Area] 47 mL/min/{1.73_m2} Low >60 [facility] Comment on above: Result Comment: mL/m in/1.73m2 CKD-EPI Creatinine Equation (2020) Performed By: #### L 300.3900, L500.2500, L100.0100 ####[facility] [address] [place], [address] Glucose [Mass/Vol] 150 mg/dL High 70-99 [facility] Comment on above: Performed By: #### L 300.3900, L500.2500, L100.0100 ####[facility] [address] [place], [address] Potassium [Moles/Vol] 4.3 mmol/L Normal 3.3-5.1 [facility] Comment on above: Performed By: #### L 300.3900, L500.2500, L100.0100 ####[facility] [address] [place], [address] Sodium [Moles/Vol] 142 mmol/L Normal 133-145 [facility] Comment on above: Performed By: #### L 300.3900, L500.2500, L100.0100 ####[facility] [address] [place], [address] Urea nitrogen [Mass/Vol] 23 mg/dL High 4-19 [facility] Comment on above: Performed By: #### L 300.3900, L500.2500, L100.0100 ####[facility] [address] [place], [address] Bedside Glucoseon 05-12-2025 FINGERSTICK GLU 167 mg/dL High [facility]106 [facility] Comment on above: Result Comment: KODY GEMENT OF PATIENT CARE PER NURSING PROTOCOL Performed By: #### L 501.080 ####[facility] [address] [place], [address] FINGERSTICK GLU 211 mg/dL High [facility]106 [facility] Comment on above: Result Comment: KODY GEMENT OF PATIENT CARE PER NURSING PROTOCOL Performed By: #### L 501.080 ####[facility] [address] [place], [address] FINGERSTICK GLU 148 mg/dL High [address] [place] [address] Comment on above: Result Comment: KODY GEMENT OF PATIENT CARE PER NURSING PROTOCOL Performed By: #### L 501.080 ####[facility] [address] [place], [address] FINGERSTICK GLU 138 mg/dL High [address] [place] [address] Comment on above: Result Comment: KODY GEMENT OF PATIENT CARE PER NURSING PROTOCOL Performed By: #### L 501.080 ####[facility] [address] [place], [address] [facility] EMILIA TEST Positive Normal [facility] Comment on above: Performed By: #### L 9000.0800 ####[facility] [address] [place], [address] Base excess Calc (Bld) [Moles/Vol] 21 mmol/L High -2 to +2 [facility] Comment on above: Performed By: #### L 9000.0800 ####[facility] [address] [place], [address] Blood Gas Type ART Normal [facility] Comment on above: Performed By: #### L 9000.0800 ####[facility] [address] [place], [address] CO2 [Moles/Vol] 47 mmol/L Normal [facility] Comment on above: Performed By: #### L 9000.0800 ####[facility] [address] [place], [address] FI02 6.0 Normal [facility] Comment on above: Performed By: #### L 0.0800 ####[facility] [address] [place], [address] HCO3 (Bld) [Moles/Vol] 44.7 mmol/L High 22-26 [facility] Comment on above: Performed By: #### L 0.0800 ####[facility] [address] [place], [address] Mode Not entered Normal [facility] Comment on above: Performed By: #### L 9000.0800 ####[facility] [address] [place], [address] O2 Delivery Dev Cannula Normal [facility] Comment on above: Performed By: #### L 9000.0800 ####[facility] [address] [place], [address] pCO2 60.1 mmHg High 35-45 [facility] Comment on above: Performed By: #### L 9000.0800 ####[facility] [address] [place], [address] pH (Bld) 7.48 [pH] High 7.35-7.45 [facility] Comment on above: Performed By: #### L 9000.0800 ####[facility] [address] [place], [address] PO2 156 mmHG High 75-100 [facility] Comment on above: Performed By: #### L 0.0800 ####[facility] [address] [place], [address] SITE R Radial Normal [facility] Comment on above: Performed By: #### L 9000.0800 ####[facility] [address] [place], [address] SO2 99 Normal 95-99 [facility] Comment on above: Performed By: #### L 9000.0800 ####[facility] [address] [place], [address] Body Fluid Cell Count+Diffon 05-12-2025 PATH COMM/BF May follow Normal [facility] Comment on above: Order Comment: The r eference range and other method performancespecifications have not been established for this bodyfluid. The test must be integrated into the clinicalcontext for interpretation. Performed By: #### L 200.0200, M100.2000 ####[facility] [address] [place], [address] CBC W/Diff, Automatedon 04-21 Absolute Lymph 0.61 X10 3/uL Low 0.83-4.51 [facility] Comment on above: Performed By: #### L 300.3900, L500.2500, L100.0100 ####[facility] [address] [place], [address] Absolute Neut 6.9 X10 3/uL Normal 2.0-7.7 [facility] Comment on above: Performed By: #### L 300.3900, L500.2500, L100.0100 ####[facility] [address] [place], [address] Basophils/100 WBC (Bld) 0.5 % Normal 0-1 [facility] Comment on above: Performed By: #### L 300.3900, L500.2500, L100.0100 ####[facility] [address] [place], [address] Eosinophils/100 WBC (Bld) 0.1 % Normal 0-5 [facility] Comment on above: Performed By: #### L 300.3900, L500.2500, L100.0100 ####[facility] [address] [place], [address] Erythrocyte distribution width (RBC) [Ratio] 16.3 % High 11.6-14.6 [facility] Comment on above: Performed By: #### L 300.3900, L500.2500, L100.0100 ####[facility] [address] [place], [address] Hematocrit (Bld) [Volume fraction] 31.2 % Low 40-54 [facility] Comment on above: Performed By: #### L 300.3900, L500.2500, L100.0100 ####[facility] [address] [place], [address] Hemoglobin (Bld) [Mass/Vol] 9.1 g/dL Low 13.0-16.5 [facility] Comment on above: Performed By: #### L 300.3900, L500.2500, L100.0100 ####[facility] [address] [place], [address] IG% 0.700 Normal 0.0-0.9 [facility] Comment on above: Result Comment: IG% - Immature Granulocytes (promyelocytes, myelocytes andmetamyelocytes) > 1% indicates that a LEFT SHIFT is Present. Performed By: #### L 300.3900, L500.2500, L100.0100 ####[facility] [address] [place], [address] Lymphocytes/100 WBC (Bld) 7.1 % Low 19-41 [facility] Comment on above: Performed By: #### L 300.3900, L500.2500, L100.0100 ####[facility] [address] [place], [address] MCH (RBC) [Entitic mass] 27.0 pg Normal 27.0-32.0 [facility] Comment on above: Performed By: #### L 300.3900, L500.2500, L100.0100 ####[facility] [address] [place], [address] MCHC (RBC) [Mass/Vol] 29.2 g/dL Low 32-36 [facility] Comment on above: Performed By: #### L 300.3900, L500.2500, L100.0100 ####[facility] [address] [place], [address] MCV (RBC) [Entitic vol] 92.6 fL Normal 80-94 [facility] Comment on above: Performed By: #### L 300.3900, L500.2500, L100.0100 ####[facility] [address] [place], [address] Monocytes/100 WBC (Bld) 12.3 % High 0-10 [facility] Comment on above: Performed By: #### L 300.3900, L500.2500, L100.0100 ####[facility] [address] [place], [address] Neutrophils/100 WBC (Bld) 79.3 % High 47-70 [facility] Comment on above: Performed By: #### L 300.3900, L500.2500, L100.0100 ####[facility] [address] [place], [address] Nucleated RBC (Bld) [#/Vol] 0 10*3/uL Normal 0-5 [facility] Comment on above: Performed By: #### L 300.3900, L500.2500, L100.0100 ####[facility] [address] [place], [address] Platelet mean volume (Bld) [Entitic vol] 10.9 fL Normal 6.2-12.0 [facility] Comment on above: Performed By: #### L 300.3900, L500.2500, L100.0100 ####[facility] [address] [place], [address] Platelets (Bld) [#/Vol] 199 10*3/uL Normal 150-450 [facility] Comment on above: Performed By: #### L 300.3900, L500.2500, L100.0100 ####[facility] [address] [place], [address] RBC (Bld) [#/Vol] 3.37 10*6/uL Low 4.6-6.2 [facility] Comment on above: Performed By: #### L 300.3900, L500.2500, L100.0100 ####[facility] [address] [place], [address] RDW SD 55.2 fl High 35.1-43.9 [facility] Comment on above: Performed By: #### L 300.3900, L500.2500, L100.0100 ####[facility] [address] [place], [address] WBC (Bld) [#/Vol] 8.7 10*3/uL Normal 4.4-11.0 [facility] Comment on above: Performed By: #### L 300.3900, L500.2500, L100.0100 ####[facility] [address] [place], [address] Chest 1 View (Portable)on Chest 1 View (Portable) Normal [facility] Chest Insp/Exp 2 Viewon 04-21 Chest Insp/Exp 2 View Normal [facility] Echo Limited w/Contraston Echo Limited w/Contrast Normal [facility] Glucose, Body Fluidon 2024 GLUC, BODY FLD 148 mg/dL Normal Not Establ. [facility] Comment on above: Performed By: #### L 503.0300, L503.0100, L504.0250 ####[facility] [address] [place], [address] Gram Stainon 05-12-2025 GS List Antibiotics [place] 48 Hours? none Acceptable Specimen? Yes (<25 Epithelial cells per/lpf) Gram Stain 4+ White Blood Cells 1+ Epithelial cells 1+ Gram positive cocci Normal [facility] Comment on above: Performed By: #### M 100.2000 ####[facility] [address] [place], [address] LDHon 05-12-2025 LDH 231 U/L Normal 87-241 [facility] Comment on above: Performed By: #### L 504.2610 ####[facility] [address] [place], [address] LDH,Body Fluidon 05-12-2025 LDH,BF 74 Units/L Normal Not Establ. [facility] Comment on above: Performed By: #### L 503.0300, L503.0100, L504.0250 ####[facility] [address] [place], [address] Protein, Body Fluidon 2024 Protein [Mass/Vol] 2.1 g/dL Normal Not Establ. [facility] Comment on above: Performed By: #### L 503.0300, L503.0100, L504.0250 ####[facility] [address] [place], [address] Prothrombin Time w/INRon INR Coag (PPP) [Relative time] 1.4 {INR} Normal [facility] Comment on above: Performed By: #### L 300.3900, L500.2500, L100.0100 ####[facility] [address] [place], [address] PT Coag (PPP) [Time] 17.2 s High 11.7-14.9 [facility] Comment on above: Performed By: #### L 300.3900, L500.2500, L100.0100 ####[facility] [address] [place], [address] Thoracentesis W USon 025 Thoracentesis W US Normal [facility] Troponin T HS 4 HRon 025 Trop T High Sen 81 ng/L Invalid Interpretation Code <=22 [facility] Comment on above: Result Comment: Hemo lysis present, Results??could be affected.??Critical Result(s) Called at: 0156??by: DORIS NERI?JUAN FLORES Results read back by same. Performed By: #### L 499.0043 ####[facility] [address] [place], [address] Urine Cultureon 05-12-2025 URC Culture exhibits no growth. Normal [facility] Comment on above: Performed By: #### M 100.2200 ####[facility] [address] [place], [address] 12 Lead EKGon 05-11-2025 12 Lead EKG Normal [facility] 12 Lead EKG Normal [facility] Basic Metabolic Profile (BMP )on 05-11-2025 BUN/CRE 17.4 RATIO Normal 10-20 [facility] Comment on above: Performed By: #### L 500.2500 ####[facility] [address] [place], [address] Calcium [Mass/Vol] 9.1 mg/dL Normal 7.6-11.0 [facility] Comment on above: Performed By: #### L 500.2500 ####[facility] [address] [place], [address] Chloride [Moles/Vol] 95 mmol/L Low 98-108 [facility] Comment on above: Performed By: #### L 500.2500 ####[facility] [address] [place], [address] CO2 [Moles/Vol] 34.9 mmol/L High 21.0-32.0 [facility] Comment on above: Performed By: #### L 500.2500 ####[facility] [address] [place], [address] Creatinine [Mass/Vol] 1.29 mg/dL High 0.70-1.20 [facility] Comment on above: Performed By: #### L 500.2500 ####[facility] [address] [place], [address] ECRCL 41.21 ml/min Low 50-250 [facility] Comment on above: Performed By: #### L 500.2500 ####[facility] [address] [place], [address] GAP 9 Normal 5-15 [facility] Comment on above: Performed By: #### L 500.2500 ####[facility] [address] [place], [address] GFR/1.73 sq M.predicted among non-blacks MDRD (S/P/Bld) [Vol rate/Area] 56 mL/min/{1.73_m2} Low >60 [facility] Comment on above: Result Comment: mL/m in/1.73m2 CKD-EPI Creatinine Equation (2020) Performed By: #### L 500.2500 ####[facility] [address] [place], [address] Glucose [Mass/Vol] 110 mg/dL High 70-99 [facility] Comment on above: Performed By: #### L 500.2500 ####[facility] [address] [place], [address] Potassium [Moles/Vol] 3.8 mmol/L Normal 3.3-5.1 [facility] Comment on above: Performed By: #### L 500.2500 ####[facility] [address] [place], [address] Sodium [Moles/Vol] 139 mmol/L Normal 133-145 [facility] Comment on above: Performed By: #### L 500.2500 ####[facility] [address] [place], [address] Urea nitrogen [Mass/Vol] 23 mg/dL High 4-19 [facility] Comment on above: Performed By: #### L 500.2500 ####[facility] [address] [place], [address] Bedside Glucoseon 05-11-2025 FINGERSTICK GLU 98 mg/dL Normal 74-106 [facility] Comment on above: Result Comment: KODY STRONG OF PATIENT CARE PER NURSING PROTOCOL Performed By: #### L 501.080 ####[facility] [address] [place], [address] Blood Gases by [facility] 025 EMILIA TEST Positive Normal [facility] Comment on above: Performed By: #### L 9000.0800 ####[facility] [address] [place], [address] Base excess Calc (Bld) [Moles/Vol] 19 mmol/L High -2 to +2 [facility] Comment on above: Performed By: #### L 9000.0800 ####[facility] [address] [place], [address] Blood Gas Type ART Normal [facility] Comment on above: Performed By: #### L 9000.0800 ####[facility] [address] [place], [address] CO2 [Moles/Vol] 46 mmol/L Normal [facility] Comment on above: Performed By: #### L 9000.0800 ####[facility] [address] [place], [address] FI02 15.0 Normal [facility] Comment on above: Performed By: #### L 9000.0800 ####[facility] [address] [place], [address] HCO3 (Bld) [Moles/Vol] 43.5 mmol/L High 22-26 [facility] Comment on above: Performed By: #### L 9000.0800 ####[facility] [address] [place], [address] Mode Not entered [facility] Comment on above: Performed By: #### L 9000.0800 ####[facility] [address] [place], [address] O2 Delivery Dev NRB Normal [facility] Comment on above: Performed By: #### L 9000.0800 ####[facility] [address] [place], [address] pCO2 65.7 mmHg High 35-45 [facility] Comment on above: Performed By: #### L 9000.0800 ####[facility] [address] [place], [address] pH (Bld) 7.43 [pH] Normal 7.35-7.45 [facility] Comment on above: Performed By: #### L 9000.0800 ####[facility] [address] [place], [address] PO2 96 mmHG Normal 75-100 [facility] Comment on above: Performed By: #### L 9000.0800 ####[facility] [address] [place], [address] SITE R Radial Normal [facility] Comment on above: Performed By: #### L 9000.0800 ####[facility] [address] [place], [address] SO2 97 Normal 95-99 [facility] Comment on above: Performed By: #### L 9000.0800 ####[facility] [address] [place], [address] CBC W/Diff, Automatedon 04-21 Absolute Lymph 1.02 X10 3/uL Normal 0.83-4.51 [facility] Comment on above: Performed By: #### L 100.0100, L500.4050, L503.7505, L503.6005 ####[facility] [address] [place], [address] Absolute Neut 7.7 X10 3/uL Normal 2.0-7.7 [facility] Comment on above: Performed By: #### L 100.0100, L500.4050, L503.7505, L503.6005 ####[facility] [address] [place], [address] Basophils/100 WBC (Bld) 0.5 % Normal 0-1 [facility] Comment on above: Performed By: #### L 100.0100, L500.4050, L503.7505, L503.6005 ####[facility] [address] [place], [address] Eosinophils/100 WBC (Bld) 0.8 % Normal 0-5 [facility] Comment on above: Performed By: #### L 100.0100, L500.4050, L503.7505, L503.6005 ####[facility] [address] [place], [address] Erythrocyte distribution width (RBC) [Ratio] 16.1 % High 11.6-14.6 [facility] Comment on above: Performed By: #### L 100.0100, L500.4050, L503.7505, L503.6005 ####[facility] [address] [place], [address] Hematocrit (Bld) [Volume fraction] 32.0 % Low 40-54 [facility] Comment on above: Performed By: #### L 100.0100, L500.4050, L503.7505, L503.6005 ####[facility] [address] [place], [address] Hemoglobin (Bld) [Mass/Vol] 9.7 g/dL Low 13.0-16.5 [facility] Comment on above: Performed By: #### L 100.0100, L500.4050, L503.7505, L503.6005 ####[facility] [address] [place], [address] IG% 0.500 Normal 0.0-0.9 [facility] Comment on above: Result Comment: IG% - Immature Granulocytes (promyelocytes, myelocytes andmetamyelocytes) > 1% indicates that a LEFT SHIFT is Present. Performed By: #### L 100.0100, L500.4050, L503.7505, L503.6005 ####[facility] [address] [place], [address] Lymphocytes/100 WBC (Bld) 10.3 % Low 19-41 [facility] Comment on above: Performed By: #### L 100.0100, L500.4050, L503.7505, L503.6005 ####[facility] [address] [place], [address] MCH (RBC) [Entitic mass] 27.8 pg Normal 27.0-32.0 [facility] Comment on above: Performed By: #### L 100.0100, L500.4050, L503.7505, L503.6005 ####[facility] [address] [place], [address] MCHC (RBC) [Mass/Vol] 30.3 g/dL Low 32-36 [facility] Comment on above: Performed By: #### L 100.0100, L500.4050, L503.7505, L503.6005 ####[facility] [address] [place], [address] MCV (RBC) [Entitic vol] 91.7 fL Normal 80-94 [facility] Comment on above: Performed By: #### L 100.0100, L500.4050, L503.7505, L503.6005 ####[facility] [address] [place], [address] Monocytes/100 WBC (Bld) 10.0 % Normal 0-10 [facility] Comment on above: Performed By: #### L 100.0100, L500.4050, L503.7505, L503.6005 ####[facility] [address] [place], [address] Neutrophils/100 WBC (Bld) 77.9 % High 47-70 [facility] Comment on above: Performed By: #### L 100.0100, L500.4050, L503.7505, L503.6005 ####[facility] [address] [place], [address] Nucleated RBC (Bld) [#/Vol] 0 10*3/uL Normal 0-5 [facility] Comment on above: Performed By: #### L 100.0100, L500.4050, L503.7505, L503.6005 ####[facility] [address] [place], [address] Platelet mean volume (Bld) [Entitic vol] 11.0 fL Normal 6.2-12.0 [facility] Comment on above: Performed By: #### L 100.0100, L500.4050, L503.7505, L503.6005 ####[facility] [address] [place], [address] Platelets (Bld) [#/Vol] 215 10*3/uL Normal 150-450 [facility] Comment on above: Performed By: #### L 100.0100, L500.4050, L503.7505, L503.6005 ####[facility] [address] [place], [address] RBC (Bld) [#/Vol] 3.49 10*6/uL Low 4.6-6.2 [facility] Comment on above: Performed By: #### L 100.0100, L500.4050, L503.7505, L503.6005 ####[facility] [address] [place], [address] RDW SD 53.3 fl High 35.1-43.9 [facility] Comment on above: Performed By: #### L 100.0100, L500.4050, L503.7505, L503.6005 ####[facility] [address] [place], [address] WBC (Bld) [#/Vol] 9.9 10*3/uL Normal 4.4-11.0 [facility] Comment on above: Performed By: #### L 100.0100, L500.4050, L503.7505, L503.6005 ####[facility] [address] [place], [address] CTA Chest W/WO Contraston CTA Chest W/WO Contrast Normal [facility] Chest 1 View (Portable)on Chest 1 View (Portable) Normal [facility] Comprehensive Metabolic Prof ilon 05-11-2025 Albumin [Mass/Vol] 3.6 g/dL Normal 3.4-4.8 [facility] Comment on above: Performed By: #### L 100.0100, L500.4050, L503.7505, L503.6005 ####[facility] [address] [place], [address] Albumin/Globulin [Mass ratio] 0.9 {ratio} Normal 0.9-2.4 [facility] Comment on above: Performed By: #### L 100.0100, L500.4050, L503.7505, L503.6005 ####[facility] [address] [place], [address] ALK PHOS 92 U/L Normal 40-129 [facility] Comment on above: Performed By: #### L 100.0100, L500.4050, L503.7505, L503.6005 ####[facility] [address] [place], [address] ALT [Catalytic activity/Vol] 13 U/L Normal <=46 [facility] Comment on above: Performed By: #### L 100.0100, L500.4050, L503.7505, L503.6005 ####[facility] [address] [place], [address] AST [Catalytic activity/Vol] 23 U/L Normal <=37 [facility] Comment on above: Performed By: #### L 100.0100, L500.4050, L503.7505, L503.6005 ####[facility] [address] [place], [address] Bilirubin [Mass/Vol] 0.63 mg/dL Normal 0.00-1.30 [facility] Comment on above: Performed By: #### L 100.0100, L500.4050, L503.7505, L503.6005 ####[facility] [address] [place], [address] BUN/CRE 16.4 RATIO Normal 10-20 [facility] Comment on above: Performed By: #### L 100.0100, L500.4050, L503.7505, L503.6005 ####[facility] [address] [place], [address] Calcium [Mass/Vol] 9.3 mg/dL Normal 7.6-11.0 [facility] Comment on above: Performed By: #### L 100.0100, L500.4050, L503.7505, L503.6005 ####[facility] [address] [place], [address] Chloride [Moles/Vol] 95 mmol/L Low 98-108 [facility] Comment on above: Performed By: #### L 100.0100, L500.4050, L503.7505, L503.6005 ####[facility] [address] [place], [address] CO2 [Moles/Vol] 35.8 mmol/L High 21.0-32.0 [facility] Comment on above: Performed By: #### L 100.0100, L500.4050, L503.7505, L503.6005 ####[facility] [address] [place], [address] Creatinine [Mass/Vol] 1.54 mg/dL High 0.70-1.20 [facility] Comment on above: Performed By: #### L 100.0100, L500.4050, L503.7505, L503.6005 ####[facility] [address] [place], [address] ECRCL 34.52 ml/min Low 50-250 [facility] Comment on above: Performed By: #### L 100.0100, L500.4050, L503.7505, L503.6005 ####[facility] [address] [place], [address] GAP 10 Normal 5-15 [facility] Comment on above: Performed By: #### L 100.0100, L500.4050, L503.7505, L503.6005 ####[facility] [address] [place], [address] GFR/1.73 sq M.predicted among non-blacks MDRD (S/P/Bld) [Vol rate/Area] 45 mL/min/{1.73_m2} Low >60 [facility] Comment on above: Result Comment: mL/m in/1.73m2 CKD-EPI Creatinine Equation (2020) Performed By: #### L 100.0100, L500.4050, L503.7505, L503.6005 ####[facility] [address] [place], [address] Globulin (S) [Mass/Vol] 4.1 g/dL Normal 2.2-4.2 [facility] Comment on above: Performed By: #### L 100.0100, L500.4050, L503.7505, L503.6005 ####[facility] [address] [place], [address] Glucose [Mass/Vol] 204 mg/dL High 70-99 [facility] Comment on above: Performed By: #### L 100.0100, L500.4050, L503.7505, L503.6005 ####[facility] [address] [place], [address] Potassium [Moles/Vol] 4.2 mmol/L Normal 3.3-5.1 [facility] Comment on above: Performed By: #### L 100.0100, L500.4050, L503.7505, L503.6005 ####[facility] [address] [place], [address] Sodium [Moles/Vol] 141 mmol/L Normal 133-145 [facility] Comment on above: Performed By: #### L 100.0100, L500.4050, L503.7505, L503.6005 ####[facility] [address] [place], [address] T PROT 7.7 g/dL Normal 5.9-8.4 [facility] Comment on above: Performed By: #### L 100.0100, L500.4050, L503.7505, L503.6005 ####[facility] [address] [place], [address] Urea nitrogen [Mass/Vol] 25 mg/dL High 4-19 [facility] Comment on above: Performed By: #### L 100.0100, L500.4050, L503.7505, L503.6005 ####[facility] [address] [place], [address] Emergency Department Summary on 05-11-2025 Emergency Department Summary Normal [facility] L501.4021on 05-11-2025 Trop T High Sen 88 ng/L Invalid Interpretation Code <=22 [facility] Comment on above: Result Comment: Crit ical Result(s) Called at: 2148 by:DORIS HARMON Results read back by same. Performed By: #### L 501.4021 ####[facility] [address] [place], [address] Lactic Acidon 05-11-2025 Lactate [Moles/Vol] 1.2 mmol/L Normal 0.0-2.0 [facility] Comment on above: Order Comment: Y Performed By: #### L 100.0100, L500.4050, L503.7505, L503.6005 ####[facility] [address] [place], [address] M100.678on 05-11-2025 M100.678 Pending SARS-CoV-2 (COVID 19) Negative INFLUENZA A Negative INFLUENZA B Negative RSV PCR Negative Normal [facility] Comment on above: Performed By: #### M 100.678 ####[facility] [address] [place], [address] Partial Thromboplast Timeon 05-11-2025 aPTT Coag (Bld) [Time] 39.1 s High 24.1-36.2 [facility] Comment on above: Performed By: #### L 300.3900, L300.4310 ####[facility] [address] [place], [address] Pro- Brain NATRIURETIC PEPTI Adrienne 05-11-2025 Natriuretic peptide B (Bld) [Mass/Vol] 4149 pg/mL High <=1800 [facility] Comment on above: Result Comment: Hear t Failure Unlikely: < 300 pg/mLHeart Failure Likely< 50 Years: > 450 pg/mL50-75 Years: > 900 pg/mL>75 Years: > 1800 pg/mL Performed By: #### L 100.0100, L500.4050, L503.7505, L503.6005 ####[facility] [address] [place], [address] Prothrombin Time w/INRon INR Coag (PPP) [Relative time] 1.4 {INR} Normal [facility] Comment on above: Performed By: #### L 300.3900, L300.4310 ####[facility] [address] [place], [address] PT Coag (PPP) [Time] 17.3 s High 11.7-14.9 [facility] Comment on above: Performed By: #### L 300.3900, L300.4310 ####[facility] [address] [place], [address] Troponin T HS 2 HRon 025 Trop T High Sen 75 ng/L Invalid Interpretation Code <=22 [facility] Comment on above: Result Comment: Crit ical Result(s) Called at: 2316 by:??DORIS ALMALj MITCHELL Results read back by same. Performed By: #### L 499.0042 ####[facility] [address] [place], [address] Urinalysis, Completeon 05-11 CAST,HYALINE 5-10 SEEN Normal 0-5 [facility] Comment on above: Order Comment: RIRI CTOR TO SPECIFY Performed By: #### L 400.0001 ####[facility] [address] [place], [address] EPI,SQUAMOUS 0-5 SEEN Normal 0-5 [facility] Comment on above: Order Comment: RIRI CTOR TO SPECIFY Performed By: #### L 400.0001 ####[facility] [address] [place], [address] RBC 5-10 SEEN Normal [address] Comment on above: Order Comment: RIRI CTOR TO SPECIFY Performed By: #### L 400.0001 ####[facility] [address] [place], [address] WBC 0-5 SEEN Normal 0-5 [facility] Comment on above: Order Comment: RIRI CTOR TO SPECIFY Performed By: #### L 400.0001 ####[facility] [address] [place], [address] BACTERIA 0 SEEN Normal None Seen [facility] Comment on above: Order Comment: RIRI CTOR TO SPECIFY Performed By: #### L 400.0001 ####[facility] [address] [place], [address] Mucus Ql (Urine sed) 0 SEEN Normal [facility] Comment on above: Order Comment: RIRI CTOR TO SPECIFY Performed By: #### L 400.0001 ####[facility] [address] [place], [address] Basic Metabolic Profile (BMP )on 05-10-2025 BUN/CRE 16.5 RATIO Normal 10-20 [facility] Comment on above: Performed By: #### L 500.2500 ####[facility] [address] [place], [address] Calcium [Mass/Vol] 8.8 mg/dL Normal 7.6-11.0 [facility] Comment on above: Performed By: #### L 500.2500 ####[facility] [address] [place], [address] Chloride [Moles/Vol] 97 mmol/L Low 98-108 [facility] Comment on above: Performed By: #### L 500.2500 ####[facility] [address] [place], [address] CO2 [Moles/Vol] 36.8 mmol/L High 21.0-32.0 [facility] Comment on above: Performed By: #### L 500.2500 ####[facility] [address] [place], [address] Creatinine [Mass/Vol] 1.33 mg/dL High 0.70-1.20 [facility] Comment on above: Performed By: #### L 500.2500 ####[facility] [address] [place], [address] ECRCL 39.97 ml/min Low 50-250 [facility] Comment on above: Performed By: #### L 500.2500 ####[facility] [address] [place], [address] GAP 8 Normal 5-15 [facility] Comment on above: Performed By: #### L 500.2500 ####[facility] [address] [place], [address] GFR/1.73 sq M.predicted among non-blacks MDRD (S/P/Bld) [Vol rate/Area] 54 mL/min/{1.73_m2} Low >60 [facility] Comment on above: Result Comment: mL/m in/1.73m2 CKD-EPI Creatinine Equation (2020) Performed By: #### L 500.2500 ####[facility] [address] [place], [address] Glucose [Mass/Vol] 92 mg/dL Normal 70-99 [facility] Comment on above: Performed By: #### L 500.2500 ####[facility] [address] [place], [address] Potassium [Moles/Vol] 3.3 mmol/L Normal 3.3-5.1 [facility] Comment on above: Performed By: #### L 500.2500 ####[facility] [address] [place], [address] Sodium [Moles/Vol] 142 mmol/L Normal 133-145 [facility] Comment on above: Performed By: #### L 500.2500 ####[facility] [address] [place], [address] Urea nitrogen [Mass/Vol] 22 mg/dL High 4-19 [facility] Comment on above: Performed By: #### L 500.2500 ####[facility] [address] [place], [address] Bedside Glucoseon 05-10-2025 FINGERSTICK GLU 135 mg/dL High 74-106 [facility] Comment on above: Result Comment: KODY GEMENT OF PATIENT CARE PER NURSING PROTOCOL Performed By: #### L 501.080 ####[facility] [address] [place], [address] FINGERSTICK GLU 86 mg/dL Normal 74-106 [facility] Comment on above: Result Comment: KODY GEMENT OF PATIENT CARE PER NURSING PROTOCOL Performed By: #### L 501.080 ####[facility] [address] [place], [address] Basic Metabolic Profile (BMP )on 05-09-2025 BUN/CRE 14.3 RATIO Normal 10-20 [facility] Comment on above: Performed By: #### L 500.2500 ####[facility] [address] [place], [address] Calcium [Mass/Vol] 8.7 mg/dL Normal 7.6-11.0 [facility] Comment on above: Performed By: #### L 500.2500 ####[facility] [address] [place], [address] Chloride [Moles/Vol] 97 mmol/L Low 98-108 [facility] Comment on above: Performed By: #### L 500.2500 ####[facility] [address] [place], [address] CO2 [Moles/Vol] 39.0 mmol/L High 21.0-32.0 [facility] Comment on above: Performed By: #### L 500.2500 ####[facility] [address] [place], [address] Creatinine [Mass/Vol] 1.36 mg/dL High 0.70-1.20 [facility] Comment on above: Performed By: #### L 500.2500 ####[facility] [address] [place], [address] ECRCL 39.09 ml/min Low 50-250 [facility] Comment on above: Performed By: #### L 500.2500 ####[facility] [address] [place], [address] GAP 6 Normal 5-15 [facility] Comment on above: Performed By: #### L 500.2500 ####[facility] [address] [place], [address] GFR/1.73 sq M.predicted among non-blacks MDRD (S/P/Bld) [Vol rate/Area] 53 mL/min/{1.73_m2} Low >60 [facility] Comment on above: Result Comment: mL/m in/1.73m2 CKD-EPI Creatinine Equation (2020) Performed By: #### L 500.2500 ####[facility] [address] [place], [address] Glucose [Mass/Vol] 81 mg/dL Normal 70-99 [facility] Comment on above: Performed By: #### L 500.2500 ####[facility] [address] [place], [address] Potassium [Moles/Vol] 3.2 mmol/L Low 3.3-5.1 [facility] Comment on above: Performed By: #### L 500.2500 ####[facility] [address] [place], [address] Sodium [Moles/Vol] 142 mmol/L Normal 133-145 [facility] Comment on above: Performed By: #### L 500.2500 ####[facility] [address] [place], [address] Urea nitrogen [Mass/Vol] 20 mg/dL High 4-19 [facility] Comment on above: Performed By: #### L 500.2500 ####[facility] [address] [place], [address] BUN Normal 4-19 [facility] Comment on above: Result Comment: Canc elled via OM: Order cancelled - Patient discharged Performed By: #### L 500.2500, L100.0100 ####[facility] [address] [place], [address] BUN/CRE Normal 10-20 [facility] Comment on above: Result Comment: Canc elled via OM: Order cancelled - Patient discharged Performed By: #### L 500.2500, L100.0100 ####[facility] [address] [place], [address] Calcium Normal 7.6-11.0 [facility] Comment on above: Result Comment: Canc elled via OM: Order cancelled - Patient discharged Performed By: #### L 500.2500, L100.0100 ####[facility] [address] [place], [address] CL Normal 98-108 [facility] Comment on above: Result Comment: Canc elled via OM: Order cancelled - Patient discharged Performed By: #### L 500.2500, L100.0100 ####[facility] [address] [place], [address] CO2 Normal 21.0-32.0 [facility] Comment on above: Result Comment: Canc elled via OM: Order cancelled - Patient discharged Performed By: #### L 500.2500, L100.0100 ####[facility] [address] [place], [address] CREAT,SERUM Normal 0.70-1.20 [facility] Comment on above: Result Comment: Canc elled via OM: Order cancelled - Patient discharged Performed By: #### L 500.2500, L100.0100 ####[facility] [address] [place], [address] eGFR Normal >60 [facility] Comment on above: Result Comment: Canc elled via OM: Order cancelled - Patient discharged Performed By: #### L 500.2500, L100.0100 ####[facility] [address] [place], [address] GAP Normal 5-15 [facility] Comment on above: Result Comment: Canc elled via OM: Order cancelled - Patient discharged Performed By: #### L 500.2500, L100.0100 ####[facility] [address] [place], [address] GLU Normal 70-99 [facility] Comment on above: Result Comment: Canc elled via OM: Order cancelled - Patient discharged Performed By: #### L 500.2500, L100.0100 ####[facility] [address] [place], [address] Potassium Normal 3.3-5.1 [facility] Comment on above: Result Comment: Canc elled via OM: Order cancelled - Patient discharged Performed By: #### L 500.2500, L100.0100 ####[facility] [address] [place], [address] Basic Metabolic Profile (BMP) Normal 133-145 [facility] Comment on above: Result Comment: Canc elled via OM: Order cancelled - Patient discharged Performed By: #### L 500.2500, L100.0100 ####[facility] [address] [place], [address] Bedside Glucoseon 05-09-2025 FINGERSTICK GLU 192 mg/dL High 74-106 [facility] Comment on above: Result Comment: KODY GEMENT OF PATIENT CARE PER NURSING PROTOCOL Performed By: #### L 501.080 ####[facility] [address] [place], [address] FINGERSTICK GLU 82 mg/dL Normal 74-106 [facility] Comment on above: Result Comment: KODY GEMENT OF PATIENT CARE PER NURSING PROTOCOL Performed By: #### L 501.080 ####[facility] [address] [place], [address] FINGERSTICK GLU 75 mg/dL Normal 74-106 [facility] Comment on above: Result Comment: KODY GEMENT OF PATIENT CARE PER NURSING PROTOCOL Performed By: #### L 501.080 ####[facility] [address] [place], [address] CBC W/Diff, Automatedon 09-2 0 Absolute Neut Normal 2.0-7.7 [facility] Comment on above: Result Comment: Canc elled via OM: Order cancelled - Patient discharged Performed By: #### L 500.2500, L100.0100 ####[facility] [address] [place], [address] HCT Normal 40-54 [facility] Comment on above: Result Comment: Canc elled via OM: Order cancelled - Patient discharged Performed By: #### L 500.2500, L100.0100 ####[facility] [address] [place], [address] HGB Normal 13.0-16.5 [facility] Comment on above: Result Comment: Canc elled via OM: Order cancelled - Patient discharged Performed By: #### L 500.2500, L100.0100 ####[facility] [address] [place], [address] MCH Normal 27.0-32.0 [facility] Comment on above: Result Comment: Canc elled via OM: Order cancelled - Patient discharged Performed By: #### L 500.2500, L100.0100 ####[facility] [address] [place], [address] MCHC Normal 32-36 [facility] Comment on above: Result Comment: Canc elled via OM: Order cancelled - Patient discharged Performed By: #### L 500.2500, L100.0100 ####[facility] [address] [place], [address] MCV Normal 80-94 [facility] Comment on above: Result Comment: Canc elled via OM: Order cancelled - Patient discharged Performed By: #### L 500.2500, L100.0100 ####[facility] [address] [place], [address] NEUT% Normal 47-70 [facility] Comment on above: Result Comment: Canc elled via OM: Order cancelled - Patient discharged Performed By: #### L 500.2500, L100.0100 ####[facility] [address] [place], [address] PLT Normal 150-450 [facility] Comment on above: Result Comment: Canc elled via OM: Order cancelled - Patient discharged Performed By: #### L 500.2500, L100.0100 ####[facility] [address] [place], [address] RBC Normal 4.6-6.2 [facility] Comment on above: Result Comment: Canc elled via OM: Order cancelled - Patient discharged Performed By: #### L 500.2500, L100.0100 ####[facility] [address] [place], [address] RDW CV Normal 11.6-14.6 [facility] Comment on above: Result Comment: Canc elled via OM: Order cancelled - Patient discharged Performed By: #### L 500.2500, L100.0100 ####[facility] [address] [place], [address] RDW SD Normal 35.1-43.9 [facility] Comment on above: Result Comment: Canc elled via OM: Order cancelled - Patient discharged Performed By: #### L 500.2500, L100.0100 ####[facility] [address] [place], [address] WBC Normal 4.4-11.0 [facility] Comment on above: Result Comment: Canc elled via OM: Order cancelled - Patient discharged Performed By: #### L 500.2500, L100.0100 ####[facility] [address] [place], [address] Basic Metabolic Profile (BMP )on 05-08-2025 BUN/CRE 16.1 RATIO Normal 10-20 [facility] Comment on above: Performed By: #### L 100.0100, L500.2500 ####[facility] [address] [place], [address] Calcium [Mass/Vol] 8.8 mg/dL Normal 7.6-11.0 [facility] Comment on above: Performed By: #### L 100.0100, L500.2500 ####[facility] [address] [place], [address] Chloride [Moles/Vol] 95 mmol/L Low 98-108 [facility] Comment on above: Performed By: #### L 100.0100, L500.2500 ####[facility] [address] [place], [address] CO2 [Moles/Vol] 35.3 mmol/L High 21.0-32.0 [facility] Comment on above: Performed By: #### L 100.0100, L500.2500 ####[facility] [address] [place], [address] Creatinine [Mass/Vol] 1.30 mg/dL High 0.70-1.20 [facility] Comment on above: Performed By: #### L 100.0100, L500.2500 ####[facility] [address] [place], [address] ECRCL 40.90 ml/min Low 50-250 [facility] Comment on above: Performed By: #### L 100.0100, L500.2500 ####[facility] [address] [place], [address] GAP 12 Normal 5-15 [facility] Comment on above: Performed By: #### L 100.0100, L500.2500 ####[facility] [address] [place], [address] GFR/1.73 sq M.predicted among non-blacks MDRD (S/P/Bld) [Vol rate/Area] 56 mL/min/{1.73_m2} Low >60 [facility] Comment on above: Result Comment: mL/m in/1.73m2 CKD-EPI Creatinine Equation (2020) Performed By: #### L 100.0100, L500.2500 ####[facility] [address] [place], [address] Glucose [Mass/Vol] 87 mg/dL Normal 70-99 [facility] Comment on above: Performed By: #### L 100.0100, L500.2500 ####[facility] [address] [place], [address] Potassium [Moles/Vol] 2.7 mmol/L Invalid Interpretation Code 3.3-5.1 [facility] Comment on above: Result Comment: Crit ical Result(s) Called at: 0945 05/08/2025 by: ABNER??Results read back by same. Performed By: #### L 100.0100, L500.2500 ####[facility] [address] [place], [address] Sodium [Moles/Vol] 143 mmol/L Normal 133-145 [facility] Comment on above: Performed By: #### L 100.0100, L500.2500 ####[facility] [address] [place], [address] Urea nitrogen [Mass/Vol] 21 mg/dL High - [facility] Comment on above: Performed By: #### L 100.0100, L500.2500 ####[facility] [address] [place], [address] BUN Normal - [facility] Comment on above: Result Comment: Canc elled via OM: Order cancelled - Patient discharged Performed By: #### L 500.2500, L100.0100 ####[facility] [address] [place], [address] BUN/CRE Normal - [facility] Comment on above: Result Comment: Canc elled via OM: Order cancelled - Patient discharged Performed By: #### L 500.2500, L100.0100 ####[facility] [address] [place], [address] Calcium Normal 7.6-11.0 [facility] Comment on above: Result Comment: Canc elled via OM: Order cancelled - Patient discharged Performed By: #### L 500.2500, L100.0100 ####[facility] [address] [place], [address] CL Normal 98-108 [facility] Comment on above: Result Comment: Canc elled via OM: Order cancelled - Patient discharged Performed By: #### L 500.2500, L100.0100 ####[facility] [address] [place], [address] CO2 Normal 21.0-32.0 [facility] Comment on above: Result Comment: Canc elled via OM: Order cancelled - Patient discharged Performed By: #### L 500.2500, L100.0100 ####[facility] [address] [place], [address] CREAT,SERUM Normal 0.70-1.20 [facility] Comment on above: Result Comment: Canc elled via OM: Order cancelled - Patient discharged Performed By: #### L 500.2500, L100.0100 ####[facility] [address] [place], [address] eGFR Normal >60 [facility] Comment on above: Result Comment: Canc elled via OM: Order cancelled - Patient discharged Performed By: #### L 500.2500, L100.0100 ####[facility] [address] [place], [address] GAP Normal 5-15 [facility] Comment on above: Result Comment: Canc elled via OM: Order cancelled - Patient discharged Performed By: #### L 500.2500, L100.0100 ####[facility] [address] [place], [address] GLU Normal 70-99 [facility] Comment on above: Result Comment: Canc elled via OM: Order cancelled - Patient discharged Performed By: #### L 500.2500, L100.0100 ####[facility] [address] [place], [address] Potassium Normal 3.3-5.1 [facility] Comment on above: Result Comment: Canc elled via OM: Order cancelled - Patient discharged Performed By: #### L 500.2500, L100.0100 ####[facility] [address] [place], [address] Basic Metabolic Profile (BMP) Normal 133-145 [facility] Comment on above: Result Comment: Canc elled via OM: Order cancelled - Patient discharged Performed By: #### L 500.2500, L100.0100 ####[facility] [address] [place], [address] Bedside Glucoseon 05-08-2025 FINGERSTICK GLU 187 mg/dL High 74-106 [facility] Comment on above: Result Comment: KODY GEMENT OF PATIENT CARE PER NURSING PROTOCOL Performed By: #### L 501.080 ####[facility] [address] [place], [address] FINGERSTICK GLU 86 mg/dL Normal 74-106 [facility] Comment on above: Result Comment: KODY GEMENT OF PATIENT CARE PER NURSING PROTOCOL Performed By: #### L 501.080 ####[facility] [address] [place], [address] CBC W/Diff, Automatedon 09-1 Absolute Lymph 0.77 X10 3/uL Low 0.83-4.51 [facility] Comment on above: Performed By: #### L 100.0100, L500.2500 ####[facility] [address] [place], [address] Absolute Neut 4.0 X10 3/uL Normal 2.0-7.7 [facility] Comment on above: Performed By: #### L 100.0100, L500.2500 ####[facility] [address] [place], [address] Basophils/100 WBC (Bld) 0.3 % Normal 0-1 [facility] Comment on above: Performed By: #### L 100.0100, L500.2500 ####[facility] [address] [place], [address] Eosinophils/100 WBC (Bld) 5.2 % High 0-5 [facility] Comment on above: Performed By: #### L 100.0100, L500.2500 ####[facility] [address] [place], [address] Erythrocyte distribution width (RBC) [Ratio] 15.9 % High 11.6-14.6 [facility] Comment on above: Performed By: #### L 100.0100, L500.2500 ####[facility] [address] [place], [address] Hematocrit (Bld) [Volume fraction] 32.0 % Low 40-54 [facility] Comment on above: Performed By: #### L 100.0100, L500.2500 ####[facility] [address] [place], [address] Hemoglobin (Bld) [Mass/Vol] 9.5 g/dL Low 13.0-16.5 [facility] Comment on above: Performed By: #### L 100.0100, L500.2500 ####[facility] [address] [place], [address] IG% 0.900 Normal 0.0-0.9 [facility] Comment on above: Result Comment: IG% - Immature Granulocytes (promyelocytes, myelocytes andmetamyelocytes) > 1% indicates that a LEFT SHIFT is Present. Performed By: #### L 100.0100, L500.2500 ####[facility] [address] [place], [address] Lymphocytes/100 WBC (Bld) 13.3 % Low 19-41 [facility] Comment on above: Performed By: #### L 100.0100, L500.2500 ####[facility] [address] [place], [address] MCH (RBC) [Entitic mass] 27.1 pg Normal 27.0-32.0 [facility] Comment on above: Performed By: #### L 100.0100, L500.2500 ####[facility] [address] [place], [address] MCHC (RBC) [Mass/Vol] 29.7 g/dL Low 32-36 [facility] Comment on above: Performed By: #### L 100.0100, L500.2500 ####[facility] [address] [place], [address] MCV (RBC) [Entitic vol] 91.4 fL Normal 80-94 [facility] Comment on above: Performed By: #### L 100.0100, L500.2500 ####[facility] [address] [place], [address] Monocytes/100 WBC (Bld) 12.0 % High 0-10 [facility] Comment on above: Performed By: #### L 100.0100, L500.2500 ####[facility] [address] [place], [address] Neutrophils/100 WBC (Bld) 68.3 % Normal 47-70 [facility] Comment on above: Performed By: #### L 100.0100, L500.2500 ####[facility] [address] [place], [address] Nucleated RBC (Bld) [#/Vol] 0 10*3/uL Normal 0-5 [facility] Comment on above: Performed By: #### L 100.0100, L500.2500 ####[facility] [address] [place], [address] Platelet mean volume (Bld) [Entitic vol] 10.0 fL Normal 6.2-12.0 [facility] Comment on above: Performed By: #### L 100.0100, L500.2500 ####[facility] [address] [place], [address] Platelets (Bld) [#/Vol] 170 10*3/uL Normal 150-450 [facility] Comment on above: Performed By: #### L 100.0100, L500.2500 ####[facility] [address] [place], [address] RBC (Bld) [#/Vol] 3.50 10*6/uL Low 4.6-6.2 [facility] Comment on above: Performed By: #### L 100.0100, L500.2500 ####[facility] [address] [place], [address] RDW SD 53.2 fl High 35.1-43.9 [facility] Comment on above: Performed By: #### L 100.0100, L500.2500 ####[facility] [address] [place], [address] WBC (Bld) [#/Vol] 5.8 10*3/uL Normal 4.4-11.0 [facility] Comment on above: Performed By: #### L 100.0100, L500.2500 ####[facility] [address] [place], [address] Absolute Neut Normal 2.0-7.7 [facility] Comment on above: Result Comment: Canc elled via OM: Order cancelled - Patient discharged Performed By: #### L 500.2500, L100.0100 ####[facility] [address] [place], [address] HCT Normal 40-54 [facility] Comment on above: Result Comment: Canc elled via OM: Order cancelled - Patient discharged Performed By: #### L 500.2500, L100.0100 ####[facility] [address] [place], [address] HGB Normal 13.0-16.5 [facility] Comment on above: Result Comment: Canc elled via OM: Order cancelled - Patient discharged Performed By: #### L 500.2500, L100.0100 ####[facility] [address] [place], [address] MCH Normal 27.0-32.0 [facility] Comment on above: Result Comment: Canc elled via OM: Order cancelled - Patient discharged Performed By: #### L 500.2500, L100.0100 ####[facility] [address] [place], [address] MCHC Normal 32-36 [facility] Comment on above: Result Comment: Canc elled via OM: Order cancelled - Patient discharged Performed By: #### L 500.2500, L100.0100 ####[facility] [address] [place], [address] MCV Normal 80-94 [facility] Comment on above: Result Comment: Canc elled via OM: Order cancelled - Patient discharged Performed By: #### L 500.2500, L100.0100 ####[facility] [address] [place], [address] NEUT% Normal 47-70 [facility] Comment on above: Result Comment: Canc elled via OM: Order cancelled - Patient discharged Performed By: #### L 500.2500, L100.0100 ####[facility] [address] [place], [address] PLT Normal 150-450 [facility] Comment on above: Result Comment: Canc elled via OM: Order cancelled - Patient discharged Performed By: #### L 500.2500, L100.0100 ####[facility] [address] [place], [address] RBC Normal 4.6-6.2 [facility] Comment on above: Result Comment: Canc elled via OM: Order cancelled - Patient discharged Performed By: #### L 500.2500, L100.0100 ####[facility] [address] [place], [address] RDW CV Normal 11.6-14.6 [facility] Comment on above: Result Comment: Canc elled via OM: Order cancelled - Patient discharged Performed By: #### L 500.2500, L100.0100 ####[facility] [address] [place], [address] RDW SD Normal 35.1-43.9 [facility] Comment on above: Result Comment: Canc elled via OM: Order cancelled - Patient discharged Performed By: #### L 500.2500, L100.0100 ####[facility] [address] [place], [address] WBC Normal 4.4-11.0 [facility] Comment on above: Result Comment: Canc elled via OM: Order cancelled - Patient discharged Performed By: #### L 500.2500, L100.0100 ####[facility] [address] [place], [address] Basic Metabolic Profile (BMP )on 05-07-2025 BUN Normal 4-19 [facility] Comment on above: Result Comment: Canc elled via OM: Order cancelled - Patient discharged Performed By: #### L 100.0100, L500.2500 ####[facility] [address] [place], [address] BUN/CRE Normal 10-20 [facility] Comment on above: Result Comment: Canc elled via OM: Order cancelled - Patient discharged Performed By: #### L 100.0100, L500.2500 ####[facility] [address] [place], [address] Calcium Normal 7.6-11.0 [facility] Comment on above: Result Comment: Canc elled via OM: Order cancelled - Patient discharged Performed By: #### L 100.0100, L500.2500 ####[facility] [address] [place], [address] CL Normal 98-108 [facility] Comment on above: Result Comment: Canc elled via OM: Order cancelled - Patient discharged Performed By: #### L 100.0100, L500.2500 ####[facility] [address] [place], [address] CO2 Normal 21.0-32.0 [facility] Comment on above: Result Comment: Canc elled via OM: Order cancelled - Patient discharged Performed By: #### L 100.0100, L500.2500 ####[facility] [address] [place], [address] CREAT,SERUM Normal 0.70-1.20 [facility] Comment on above: Result Comment: Canc elled via OM: Order cancelled - Patient discharged Performed By: #### L 100.0100, L500.2500 ####[facility] [address] [place], [address] eGFR Normal >60 [facility] Comment on above: Result Comment: Canc elled via OM: Order cancelled - Patient discharged Performed By: #### L 100.0100, L500.2500 ####[facility] [facility] [address] [place], [address] GAP Normal 5-15 [facility] Comment on above: Result Comment: Canc elled via OM: Order cancelled - Patient discharged Performed By: #### L 100.0100, L500.2500 ####[facility] [address] [place], [address] GLU Normal 70-99 [facility] Comment on above: Result Comment: Canc elled via OM: Order cancelled - Patient discharged Performed By: #### L 100.0100, L500.2500 ####[facility] [address] [place], [address] Potassium Normal 3.3-5.1 [facility] Comment on above: Result Comment: Canc elled via OM: Order cancelled - Patient discharged Performed By: #### L 100.0100, L500.2500 ####[facility] [address] [place], [address] Basic Metabolic Profile (BMP) Normal 133-145 [facility] Comment on above: Result Comment: Canc elled via OM: Order cancelled - Patient discharged Performed By: #### L 100.0100, L500.2500 ####[facility] [address] [place], [address] Bedside Glucoseon 05-07-2025 FINGERSTICK GLU 195 mg/dL High 74-106 [facility] Comment on above: Result Comment: KODY GEMENT OF PATIENT CARE PER NURSING PROTOCOL Performed By: #### L 501.080 ####[facility] [address] [place], [address] FINGERSTICK GLU 93 mg/dL Normal 74-106 [facility] Comment on above: Result Comment: KODY GEMENT OF PATIENT CARE PER NURSING PROTOCOL Performed By: #### L 501.080 ####[facility] [address] [place], [address] FINGERSTICK GLU 115 mg/dL High 74-106 [facility] Comment on above: Result Comment: KODY STRONG OF PATIENT CARE PER NURSING PROTOCOL Performed By: #### L 501.080 ####[facility] [address] [place], [address] CBC W/Diff, Automatedon 04-20 Absolute Neut Normal 2.0-7.7 [facility] Comment on above: Result Comment: Canc elled via OM: Order cancelled - Patient discharged Performed By: #### L 100.0100, L500.2500 ####[facility] [address] [place], [address] HCT Normal 40-54 [facility] Comment on above: Result Comment: Canc elled via OM: Order cancelled - Patient discharged Performed By: #### L 100.0100, L500.2500 ####[facility] [address] [place], [address] HGB Normal 13.0-16.5 [facility] Comment on above: Result Comment: Canc elled via OM: Order cancelled - Patient discharged Performed By: #### L 100.0100, L500.2500 ####[facility] [address] [place], [address] MCH Normal 27.0-32.0 [facility] Comment on above: Result Comment: Canc elled via OM: Order cancelled - Patient discharged Performed By: #### L 100.0100, L500.2500 ####[facility] [address] [place], [address] MCHC Normal 32-36 [facility] Comment on above: Result Comment: Canc elled via OM: Order cancelled - Patient discharged Performed By: #### L 100.0100, L500.2500 ####[facility] [address] [place], [address] MCV Normal 80-94 [facility] Comment on above: Result Comment: Canc elled via OM: Order cancelled - Patient discharged Performed By: #### L 100.0100, L500.2500 ####[facility] [address] [place], [address] NEUT% Normal 47-70 [facility] Comment on above: Result Comment: Canc elled via OM: Order cancelled - Patient discharged Performed By: #### L 100.0100, L500.2500 ####[facility] [address] [place], [address] PLT Normal 150-450 [facility] Comment on above: Result Comment: Canc elled via OM: Order cancelled - Patient discharged Performed By: #### L 100.0100, L500.2500 ####[facility] [address] [place], [address] RBC Normal 4.6-6.2 [facility] Comment on above: Result Comment: Canc elled via OM: Order cancelled - Patient discharged Performed By: #### L 100.0100, L500.2500 ####[facility] [address] [place], [address] RDW CV Normal 11.6-14.6 [facility] Comment on above: Result Comment: Canc elled via OM: Order cancelled - Patient discharged Performed By: #### L 100.0100, L500.2500 ####[facility] [address] [place], [address] RDW SD Normal 35.1-43.9 [facility] Comment on above: Result Comment: Canc elled via OM: Order cancelled - Patient discharged Performed By: #### L 100.0100, L500.2500 ####[facility] [address] [place], [address] WBC Normal 4.4-11.0 [facility] Comment on above: Result Comment: Canc elled via OM: Order cancelled - Patient discharged Performed By: #### L 100.0100, L500.2500 ####[facility] [address] [place], [address] Basic Metabolic Profile (BMP )on 05-06-2025 BUN Normal 4-19 [facility] Comment on above: Result Comment: Canc elled via OM: Order cancelled - Patient discharged Performed By: #### L 500.2500, L100.0100 ####[facility] [address] [place], [address] BUN/CRE Normal 10-20 [facility] Comment on above: Result Comment: Canc elled via OM: Order cancelled - Patient discharged Performed By: #### L 500.2500, L100.0100 ####[facility] [address] [place], [address] Calcium Normal 7.6-11.0 [facility] Comment on above: Result Comment: Canc elled via OM: Order cancelled - Patient discharged Performed By: #### L 500.2500, L100.0100 ####[facility] [address] [place], [address] CL Normal 98-108 [facility] Comment on above: Result Comment: Canc elled via OM: Order cancelled - Patient discharged Performed By: #### L 500.2500, L100.0100 ####[facility] [address] [place], [address] CO2 Normal 21.0-32.0 [facility] Comment on above: Result Comment: Canc elled via OM: Order cancelled - Patient discharged Performed By: #### L 500.2500, L100.0100 ####[facility] [address] [place], [address] CREAT,SERUM Normal 0.70-1.20 [facility] Comment on above: Result Comment: Canc elled via OM: Order cancelled - Patient discharged Performed By: #### L 500.2500, L100.0100 ####[facility] [address] [place], [address] eGFR Normal >60 [facility] Comment on above: Result Comment: Canc elled via OM: Order cancelled - Patient discharged Performed By: #### L 500.2500, L100.0100 ####[facility] [address] [place], [address] GAP Normal 5-15 [facility] Comment on above: Result Comment: Canc elled via OM: Order cancelled - Patient discharged Performed By: #### L 500.2500, L100.0100 ####[facility] [address] [place], [address] GLU Normal 70-99 [facility] Comment on above: Result Comment: Canc elled via OM: Order cancelled - Patient discharged Performed By: #### L 500.2500, L100.0100 ####[facility] [address] [place], [address] Potassium Normal 3.3-5.1 [facility] Comment on above: Result Comment: Canc elled via OM: Order cancelled - Patient discharged Performed By: #### L 500.2500, L100.0100 ####[facility] [address] [place], [address] Basic Metabolic Profile (BMP) Normal 133-145 [facility] Comment on above: Result Comment: Canc elled via OM: Order cancelled - Patient discharged Performed By: #### L 500.2500, L100.0100 ####[facility] [address] [place], [address] Bedside Glucoseon 05-06-2025 FINGERSTICK GLU 173 mg/dL High 74-106 [facility] Comment on above: Result Comment: KODY TAE OF PATIENT CARE PER NURSING PROTOCOL Performed By: #### L 501.080 ####[facility] [address] [place], [address] FINGERSTICK GLU 219 mg/dL High 74-106 [facility] Comment on above: Result Comment: KODY GEMENT OF PATIENT CARE PER NURSING PROTOCOL Performed By: #### L 501.080 ####[facility] [address] [place], [address] FINGERSTICK GLU 87 mg/dL Normal 74-106 [facility] Comment on above: Result Comment: KODY GEMENT OF PATIENT CARE PER NURSING PROTOCOL Performed By: #### L 501.080 ####[facility] [address] [place], [address] CBC W/Diff, Automatedon 04-20 Absolute Neut Normal 2.0-7.7 [facility] Comment on above: Result Comment: Canc elled via OM: Order cancelled - Patient discharged Performed By: #### L 500.2500, L100.0100 ####[facility] [address] [place], [address] HCT Normal 40-54 [facility] Comment on above: Result Comment: Canc elled via OM: Order cancelled - Patient discharged Performed By: #### L 500.2500, L100.0100 ####[facility] [address] [place], [address] HGB Normal 13.0-16.5 [facility] Comment on above: Result Comment: Canc elled via OM: Order cancelled - Patient discharged Performed By: #### L 500.2500, L100.0100 ####[facility] [address] [place], [address] MCH Normal 27.0-32.0 [facility] Comment on above: Result Comment: Canc elled via OM: Order cancelled - Patient discharged Performed By: #### L 500.2500, L100.0100 ####[facility] [address] [place], [address] MCHC Normal 32-36 [facility] Comment on above: Result Comment: Canc elled via OM: Order cancelled - Patient discharged Performed By: #### L 500.2500, L100.0100 ####[facility] [address] [place], [address] MCV Normal 80-94 [facility] Comment on above: Result Comment: Canc elled via OM: Order cancelled - Patient discharged Performed By: #### L 500.2500, L100.0100 ####[facility] [address] [place], [address] NEUT% Normal 47-70 [facility] Comment on above: Result Comment: Canc elled via OM: Order cancelled - Patient discharged Performed By: #### L 500.2500, L100.0100 ####[facility] [address] [place], [address] PLT Normal 150-450 [facility] Comment on above: Result Comment: Canc elled via OM: Order cancelled - Patient discharged Performed By: #### L 500.2500, L100.0100 ####[facility] [address] [place], [address] RBC Normal 4.6-6.2 [facility] Comment on above: Result Comment: Canc elled via OM: Order cancelled - Patient discharged Performed By: #### L 500.2500, L100.0100 ####[facility] [address] [place], [address] RDW CV Normal 11.6-14.6 [facility] Comment on above: Result Comment: Canc elled via OM: Order cancelled - Patient discharged Performed By: #### L 500.2500, L100.0100 ####[facility] [address] [place], [address] RDW SD Normal 35.1-43.9 [facility] Comment on above: Result Comment: Canc elled via OM: Order cancelled - Patient discharged Performed By: #### L 500.2500, L100.0100 ####[facility] [address] [place], [address] WBC Normal 4.4-11.0 [facility] Comment on above: Result Comment: Canc elled via OM: Order cancelled - Patient discharged Performed By: #### L 500.2500, L100.0100 ####[facility] [address] [place], [address] Basic Metabolic Profile (BMP )on 05-05-2025 BUN Normal 4-19 [facility] Comment on above: Result Comment: Canc elled via OM: Order cancelled - Patient discharged Performed By: #### L 500.2500, L100.0100 ####[facility] [address] [place], [address] BUN/CRE Normal 10-20 [facility] Comment on above: Result Comment: Canc elled via OM: Order cancelled - Patient discharged Performed By: #### L 500.2500, L100.0100 ####[facility] [address] [place], [address] Calcium Normal 7.6-11.0 [facility] Comment on above: Result Comment: Canc elled via OM: Order cancelled - Patient discharged Performed By: #### L 500.2500, L100.0100 ####[facility] [address] [place], [address] CL Normal 98-108 [facility] Comment on above: Result Comment: Canc elled via OM: Order cancelled - Patient discharged Performed By: #### L 500.2500, L100.0100 ####[facility] [address] [place], [address] CO2 Normal 21.0-32.0 [facility] Comment on above: Result Comment: Canc elled via OM: Order cancelled - Patient discharged Performed By: #### L 500.2500, L100.0100 ####[facility] [address] [place], [address] CREAT,SERUM Normal 0.70-1.20 [facility] Comment on above: Result Comment: Canc elled via OM: Order cancelled - Patient discharged Performed By: #### L 500.2500, L100.0100 ####[facility] [address] [place], [address] eGFR Normal >60 [facility] Comment on above: Result Comment: Canc elled via OM: Order cancelled - Patient discharged Performed By: #### L 500.2500, L100.0100 ####[facility] [address] [place], [address] GAP Normal 5-15 [facility] Comment on above: Result Comment: Canc elled via OM: Order cancelled - Patient discharged Performed By: #### L 500.2500, L100.0100 ####[facility] [address] [place], [address] GLU Normal 70-99 [facility] Comment on above: Result Comment: Canc elled via OM: Order cancelled - Patient discharged Performed By: #### L 500.2500, L100.0100 ####[facility] [address] [place], [address] Potassium Normal 3.3-5.1 [facility] Comment on above: Result Comment: Canc elled via OM: Order cancelled - Patient discharged Performed By: #### L 500.2500, L100.0100 ####[facility] [address] [place], [address] Basic Metabolic Profile (BMP) Normal 133-145 [facility] Comment on above: Result Comment: Canc elled via OM: Order cancelled - Patient discharged Performed By: #### L 500.2500, L100.0100 ####[facility] [address] [place], [address] Bedside Glucoseon 05-05-2024 FINGERSTICK GLU 134 mg/dL High 74-106 [facility] Comment on above: Result Comment: KODY GEMENT OF PATIENT CARE PER NURSING PROTOCOL Performed By: #### L 501.080 ####[facility] [address] [place], [address] FINGERSTICK GLU 92 mg/dL Normal 74-106 [facility] Comment on above: Result Comment: KODY GEMENT OF PATIENT CARE PER NURSING PROTOCOL Performed By: #### L 501.080 ####[facility] [address] [place], [address] CBC W/Diff, Automatedon 04-20 Absolute Neut Normal 2.0-7.7 [facility] Comment on above: Result Comment: Canc elled via OM: Order cancelled - Patient discharged Performed By: #### L 500.2500, L100.0100 ####[facility] [address] [place], [address] HCT Normal 40-54 [facility] Comment on above: Result Comment: Canc elled via OM: Order cancelled - Patient discharged Performed By: #### L 500.2500, L100.0100 ####[facility] [address] [place], [address] HGB Normal 13.0-16.5 [facility] Comment on above: Result Comment: Canc elled via OM: Order cancelled - Patient discharged Performed By: #### L 500.2500, L100.0100 ####[facility] [address] [place], [address] MCH Normal 27.0-32.0 [facility] Comment on above: Result Comment: Canc elled via OM: Order cancelled - Patient discharged Performed By: #### L 500.2500, L100.0100 ####[facility] [address] [place], [address] MCHC Normal 32-36 [facility] Comment on above: Result Comment: Canc elled via OM: Order cancelled - Patient discharged Performed By: #### L 500.2500, L100.0100 ####[facility] [address] [place], [address] MCV Normal 80-94 [facility] Comment on above: Result Comment: Canc elled via OM: Order cancelled - Patient discharged Performed By: #### L 500.2500, L100.0100 ####[facility] [address] [place], [address] NEUT% Normal 47-70 [facility] Comment on above: Result Comment: Canc elled via OM: Order cancelled - Patient discharged Performed By: #### L 500.2500, L100.0100 ####[facility] [address] [place], [address] PLT Normal 150-450 [facility] Comment on above: Result Comment: Canc elled via OM: Order cancelled - Patient discharged Performed By: #### L 500.2500, L100.0100 ####[facility] [address] [place], [address] RBC Normal 4.6-6.2 [facility] Comment on above: Result Comment: Canc elled via OM: Order cancelled - Patient discharged Performed By: #### L 500.2500, L100.0100 ####[facility] [address] [place], [address] RDW CV Normal 11.6-14.6 [facility] Comment on above: Result Comment: Canc elled via OM: Order cancelled - Patient discharged Performed By: #### L 500.2500, L100.0100 ####[facility] [address] [place], [address] RDW SD Normal 35.1-43.9 [facility] Comment on above: Result Comment: Canc elled via OM: Order cancelled - Patient discharged Performed By: #### L 500.2500, L100.0100 ####[facility] [address] [place], [address] WBC Normal 4.4-11.0 [facility] Comment on above: Result Comment: Canc elled via OM: Order cancelled - Patient discharged Performed By: #### L 500.2500, L100.0100 ####[facility] [address] [place], [address] Basic Metabolic Profile (BMP )on 05-04-2025 BUN Normal 4-19 [facility] Comment on above: Result Comment: Canc elled via OM: Order cancelled - Patient discharged Performed By: #### L 500.2500, L100.0100 ####[facility] [address] [place], [address] BUN/CRE Normal 10-20 [facility] Comment on above: Result Comment: Canc elled via OM: Order cancelled - Patient discharged Performed By: #### L 500.2500, L100.0100 ####[facility] [address] [place], [address] Calcium Normal 7.6-11.0 [facility] Comment on above: Result Comment: Canc elled via OM: Order cancelled - Patient discharged Performed By: #### L 500.2500, L100.0100 ####[facility] [address] [place], [address] CL Normal 98-108 [facility] Comment on above: Result Comment: Canc elled via OM: Order cancelled - Patient discharged Performed By: #### L 500.2500, L100.0100 ####[facility] [address] [place], [address] CO2 Normal 21.0-32.0 [facility] Comment on above: Result Comment: Canc elled via OM: Order cancelled - Patient discharged Performed By: #### L 500.2500, L100.0100 ####[facility] [address] [place], [address] CREAT,SERUM Normal 0.70-1.20 [facility] Comment on above: Result Comment: Canc elled via OM: Order cancelled - Patient discharged Performed By: #### L 500.2500, L100.0100 ####[facility] [address] [place], [address] eGFR Normal >60 [facility] Comment on above: Result Comment: Canc elled via OM: Order cancelled - Patient discharged Performed By: #### L 500.2500, L100.0100 ####[facility] [address] [place], [address] GAP Normal 5-15 [facility] Comment on above: Result Comment: Canc elled via OM: Order cancelled - Patient discharged Performed By: #### L 500.2500, L100.0100 ####[facility] [address] [place], [address] GLU Normal 70-99 [facility] Comment on above: Result Comment: Canc elled via OM: Order cancelled - Patient discharged Performed By: #### L 500.2500, L100.0100 ####[facility] [address] [place], [address] Potassium Normal 3.3-5.1 [facility] Comment on above: Result Comment: Canc elled via OM: Order cancelled - Patient discharged Performed By: #### L 500.2500, L100.0100 ####[facility] [address] [place], [address] Basic Metabolic Profile (BMP) Normal 133-145 [facility] Comment on above: Result Comment: Canc elled via OM: Order cancelled - Patient discharged Performed By: #### L 500.2500, L100.0100 ####[facility] [address] [place], [address] Bedside Glucoseon 05-04-2025 FINGERSTICK GLU 193 mg/dL High 74-106 [facility] Comment on above: Result Comment: KODY GEMENT OF PATIENT CARE PER NURSING PROTOCOL Performed By: #### L 501.080 ####[facility] [address] [place], [address] FINGERSTICK GLU 81 mg/dL Normal 74-106 [facility] Comment on above: Result Comment: KODY GEMENT OF PATIENT CARE PER NURSING PROTOCOL Performed By: #### L 501.080 ####[facility] [address] [place], [address] CBC W/Diff, Automatedon 04-20 Absolute Neut Normal 2.0-7.7 [facility] Comment on above: Result Comment: Canc elled via OM: Order cancelled - Patient discharged Performed By: #### L 500.2500, L100.0100 ####[facility] [address] [place], [address] HCT Normal 40-54 [facility] Comment on above: Result Comment: Canc elled via OM: Order cancelled - Patient discharged Performed By: #### L 500.2500, L100.0100 ####[facility] [address] [place], [address] HGB Normal 13.0-16.5 [facility] Comment on above: Result Comment: Canc elled via OM: Order cancelled - Patient discharged Performed By: #### L 500.2500, L100.0100 ####[facility] [address] [place], [address] MCH Normal 27.0-32.0 [facility] Comment on above: Result Comment: Canc elled via OM: Order cancelled - Patient discharged Performed By: #### L 500.2500, L100.0100 ####[facility] [address] [place], [address] MCHC Normal 32-36 [facility] Comment on above: Result Comment: Canc elled via OM: Order cancelled - Patient discharged Performed By: #### L 500.2500, L100.0100 ####[facility] [address] [place], [address] MCV Normal 80-94 [facility] Comment on above: Result Comment: Canc elled via OM: Order cancelled - Patient discharged Performed By: #### L 500.2500, L100.0100 ####[facility] [address] [place], [address] NEUT% Normal 47-70 [facility] Comment on above: Result Comment: Canc elled via OM: Order cancelled - Patient discharged Performed By: #### L 500.2500, L100.0100 ####[facility] [address] [place], [address] PLT Normal 150-450 [facility] Comment on above: Result Comment: Canc elled via OM: Order cancelled - Patient discharged Performed By: #### L 500.2500, L100.0100 ####[facility] [address] [place], [address] RBC Normal 4.6-6.2 [facility] Comment on above: Result Comment: Canc elled via OM: Order cancelled - Patient discharged Performed By: #### L 500.2500, L100.0100 ####[facility] [address] [place], [address] RDW CV Normal 11.6-14.6 [facility] Comment on above: Result Comment: Canc elled via OM: Order cancelled - Patient discharged Performed By: #### L 500.2500, L100.0100 ####[place] [facility] [address] [place], [address] RDW SD Normal 35.1-43.9 [facility] Comment on above: Result Comment: Canc elled via OM: Order cancelled - Patient discharged Performed By: #### L 500.2500, L100.0100 ####[facility] [address] [place], [address] WBC Normal 4.4-11.0 [facility] Comment on above: Result Comment: Canc elled via OM: Order cancelled - Patient discharged Performed By: #### L 500.2500, L100.0100 ####[facility] [address] [place], [address] EGD Reporton 05-04-2025 EGD Report Normal [facility] deOrdered By: Jakob Goddard on 05-04-2025 Glucose [Mass/Vol] 193 mg/dL High 74-106 [facility] Gl[facility] at [facility] deOrdered By: Valdez Olivo on 05-04-2025 Glucose [Mass/Vol] 81 mg/dL 74-106 [facility] HH, Hemoglobin AND Hematocri ton 05-04-2025 Hematocrit (Bld) [Volume fraction] 31.9 % Low 40-54 [facility] Comment on above: Performed By: #### L 100.0600 ####[facility] [address] [place], [address] Hemoglobin (Bld) [Mass/Vol] 9.7 g/dL Low 13.0-16.5 [facility] Comment on above: Performed By: #### L 100.0600 ####[facility] [address] [place], [address] Hematocrit Auto (Bld) [Volum e fraction]Ordered By: Valdez Olivo on 05-04-2025 Hematocrit (Bld) [Volume fraction] 31.9 % Low 40-54 [facility] Hemoglobin measurementOrdere d By: Valdez Olivo on 05-04-2025 Hemoglobin (Bld) [Mass/Vol] 9.7 g/dL Low 13.0-16.5 [facility] MR/OP.PROVATon 05-04-2025 MR/OP.PROVAT Normal [facility] MR/POSTOP.ANEon 05-04-2025 MR/POSTOP.ANE Normal [facility] MR/CLZYXDZF0wh 05-04-2025 MR/POSTOPAN2 Normal [facility] Bedside Glucoseon 05-03-2025 FINGERSTICK GLU 172 mg/dL High 74-106 [facility] Comment on above: Result Comment: KODY GEMENT OF PATIENT CARE PER NURSING PROTOCOL Performed By: #### L 501.080 ####[facility] [address] [place], [address] FINGERSTICK GLU 75 mg/dL Normal 74-106 [facility] Comment on above: Result Comment: KODY GEMENT OF PATIENT CARE PER NURSING PROTOCOL Performed By: #### L 501.080 ####[facility] [address] [place], [address] Basic Metabolic Profile (BMP )on 05-02-2025 BUN Normal 4-19 [facility] Comment on above: Result Comment: Canc elled via OM: Order cancelled - Patient discharged Performed By: #### L 100.0100, L500.2500 ####[facility] [address] [place], [address] BUN/CRE Normal 10-20 [facility] Comment on above: Result Comment: Canc elled via OM: Order cancelled - Patient discharged Performed By: #### L 100.0100, L500.2500 ####[facility] [address] [place], [address] Calcium Normal 7.6-11.0 [facility] Comment on above: Result Comment: Canc elled via OM: Order cancelled - Patient discharged Performed By: #### L 100.0100, L500.2500 ####[facility] [address] [place], [address] CL Normal 98-108 [facility] Comment on above: Result Comment: Canc elled via OM: Order cancelled - Patient discharged Performed By: #### L 100.0100, L500.2500 ####[facility] [address] [place], [address] CO2 Normal 21.0-32.0 [facility] Comment on above: Result Comment: Canc elled via OM: Order cancelled - Patient discharged Performed By: #### L 100.0100, L500.2500 ####[facility] [address] [place], [address] CREAT,SERUM Normal 0.70-1.20 [facility] Comment on above: Result Comment: Canc elled via OM: Order cancelled - Patient discharged Performed By: #### L 100.0100, L500.2500 ####[facility] [address] [place], [address] eGFR Normal >60 [facility] Comment on above: Result Comment: Canc elled via OM: Order cancelled - Patient discharged Performed By: #### L 100.0100, L500.2500 ####[facility] [address] [place], [address] GAP Normal 5-15 [facility] Comment on above: Result Comment: Canc elled via OM: Order cancelled - Patient discharged Performed By: #### L 100.0100, L500.2500 ####[facility] [address] [place], [address] GLU Normal 70-99 [facility] Comment on above: Result Comment: Canc elled via OM: Order cancelled - Patient discharged Performed By: #### L 100.0100, L500.2500 ####[facility] [address] [place], [address] Potassium Normal 3.3-5.1 [facility] Comment on above: Result Comment: Canc elled via OM: Order cancelled - Patient discharged Performed By: #### L 100.0100, L500.2500 ####[facility] [address] [place], [address] Basic Metabolic Profile (BMP) Normal 133-145 [facility] Comment on above: Result Comment: Canc elled via OM: Order cancelled - Patient discharged Performed By: #### L 100.0100, L500.2500 ####[facility] [address] [place], [address] Bedside Glucoseon 05-02-2025 FINGERSTICK GLU 159 mg/dL High 74-106 [facility] Comment on above: Result Comment: KODY GEMENT OF PATIENT CARE PER NURSING PROTOCOL Performed By: #### L 501.080 ####[facility] [address] [place], [address] FINGERSTICK GLU 87 mg/dL Normal 74-106 [facility] Comment on above: Result Comment: KODY GEMENT OF PATIENT CARE PER NURSING PROTOCOL Performed By: #### L 501.080 ####[facility] [address] [place], [address] CBC W/Diff, Automatedon 04-20 Absolute Neut Normal 2.0-7.7 [facility] Comment on above: Result Comment: Canc elled via OM: Order cancelled - Patient discharged Performed By: #### L 100.0100, L500.2500 ####[facility] [address] [place], [address] HCT Normal 40-54 [facility] Comment on above: Result Comment: Canc elled via OM: Order cancelled - Patient discharged Performed By: #### L 100.0100, L500.2500 ####[facility] [address] [place], [address] HGB Normal 13.0-16.5 [facility] Comment on above: Result Comment: Canc elled via OM: Order cancelled - Patient discharged Performed By: #### L 100.0100, L500.2500 ####[facility] [address] [place], [address] MCH Normal 27.0-32.0 [facility] Comment on above: Result Comment: Canc elled via OM: Order cancelled - Patient discharged Performed By: #### L 100.0100, L500.2500 ####[facility] [address] [place], [address] MCHC Normal 32-36 [facility] Comment on above: Result Comment: Canc elled via OM: Order cancelled - Patient discharged Performed By: #### L 100.0100, L500.2500 ####[facility] [address] [place], [address] MCV Normal 80-94 [facility] Comment on above: Result Comment: Canc elled via OM: Order cancelled - Patient discharged Performed By: #### L 100.0100, L500.2500 ####[facility] [address] [place], [address] NEUT% Normal 47-70 [facility] Comment on above: Result Comment: Canc elled via OM: Order cancelled - Patient discharged Performed By: #### L 100.0100, L500.2500 ####[facility] [address] [place], [address] PLT Normal 150-450 [facility] Comment on above: Result Comment: Canc elled via OM: Order cancelled - Patient discharged Performed By: #### L 100.0100, L500.2500 ####[facility] [address] [place], [address] RBC Normal 4.6-6.2 [facility] Comment on above: Result Comment: Canc elled via OM: Order cancelled - Patient discharged Performed By: #### L 100.0100, L500.2500 ####[facility] [address] [place], [address] RDW CV Normal 11.6-14.6 [facility] Comment on above: Result Comment: Canc elled via OM: Order cancelled - Patient discharged Performed By: #### L 100.0100, L500.2500 ####[facility] [address] [place], [address] RDW SD Normal 35.1-43.9 [facility] Comment on above: Result Comment: Canc elled via OM: Order cancelled - Patient discharged Performed By: #### L 100.0100, L500.2500 ####[facility] [address] [place], [address] WBC Normal 4.4-11.0 [facility] Comment on above: Result Comment: Canc elled via OM: Order cancelled - Patient discharged Performed By: #### L 100.0100, L500.2500 ####[facility] [address] [place], [address] HH, Hemoglobin AND Hematocri ton 05-02-2025 Hematocrit (Bld) [Volume fraction] 33.0 % Low 40-54 [facility] Comment on above: Performed By: #### L 100.0600 ####[facility] [address] [place], [address] Hemoglobin (Bld) [Mass/Vol] 10.0 g/dL Low 13.0-16.5 [facility] Comment on above: Performed By: #### L 100.0600 ####[facility] [address] [place], [address] Absolute lymphocyte countOrd ered By: Valdez Olivo on 05-01-2025 Lymphocytes Auto (Unsp spec) [#/Vol] 0.62 10*3/uL Low 0.83-4.51 [facility] Anion gap in Serum or Plasma Ordered By: Valdez Olivo on 05-01-2025 Anion gap [Moles/Vol] 7 mmol/L 5-15 [facility] Automated lymphocyte count a s percentage of total leukocytesOrdered By: Valdez Olivo on 05-01-2025 Lymphocytes/100 WBC Auto (Unsp spec) 16.1 % Low 19-41 [facility] BRCon 05-01-2025 RC Normal [facility] Comment on above: Result Comment: [id number] OP RC TRANSFUSED 05/01/25 [id number] OP RC TRANSFUSED 05/01/25 1137 Performed By: #### B , [facility] ####[facility] [address] [place], [address] BUN/creatinine ratioOrdered By: Valdez Olivo on 05-01-2025 Urea nitrogen/Creatinine [Mass ratio] 20.2 mg/mg High 10-20 [facility] Basic Metabolic Profile (BMP )on 05-01-2025 BUN/CRE 20.2 RATIO High 10-20 [facility] Comment on above: Performed By: #### L 500.2500, L100.0100 ####[facility] [address] [place], [address] Calcium [Mass/Vol] 8.8 mg/dL Normal 7.6-11.0 [facility] Comment on above: Performed By: #### L 500.2500, L100.0100 ####[facility] [address] [place], [address] Chloride [Moles/Vol] 102 mmol/L Normal 98-108 [facility] Comment on above: Performed By: #### L 500.2500, L100.0100 ####[facility] [address] [place], [address] CO2 [Moles/Vol] 33.0 mmol/L High 21.0-32.0 [facility] Comment on above: Performed By: #### L 500.2500, L100.0100 ####[facility] [address] [place], [address] Creatinine [Mass/Vol] 1.28 mg/dL High 0.70-1.20 [facility] Comment on above: Performed By: #### L 500.2500, L100.0100 ####[facility] [address] [place], [address] ECRCL 41.54 ml/min Low 50-250 [facility] Comment on above: Performed By: #### L 500.2500, L100.0100 ####[facility] [address] [place], [address] GAP 7 Normal 5-15 [facility] Comment on above: Performed By: #### L 500.2500, L100.0100 ####[facility] [address] [place], [address] GFR/1.73 sq M.predicted among non-blacks MDRD (S/P/Bld) [Vol rate/Area] 57 mL/min/{1.73_m2} Low >60 [facility] Comment on above: Result Comment: mL/m in/1.73m2 CKD-EPI Creatinine Equation (2020) Performed By: #### L 500.2500, L100.0100 ####[facility] [address] [place], [address] Glucose [Mass/Vol] 100 mg/dL High 70-99 [facility] Comment on above: Performed By: #### L 500.2500, L100.0100 ####[facility] [address] [place], [address] Potassium [Moles/Vol] 3.8 mmol/L Normal 3.3-5.1 [facility] Comment on above: Performed By: #### L 500.2500, L100.0100 ####[facility] [address] [place], [address] Sodium [Moles/Vol] 142 mmol/L Normal 133-145 [facility] Comment on above: Performed By: #### L 500.2500, L100.0100 ####[facility] [address] [place], [address] Urea nitrogen [Mass/Vol] 26 mg/dL High 4-19 [facility] Comment on above: Performed By: #### L 500.2500, L100.0100 ####[facility] [address] [place], [address] Basophil percentageOrdered B y: Valdez Olivo on 05-01-2025 Basophils/100 WBC (Bld) 0.3 % 0-1 [facility] Bedside Glucoseon 05-01-2025 FINGERSTICK GLU 133 mg/dL High 74-106 [facility] Comment on above: Result Comment: KODY GEMENT OF PATIENT CARE PER NURSING PROTOCOL Performed By: #### L 501.080 ####[facility] [address] [place], [address] FINGERSTICK GLU 96 mg/dL Normal 74-106 [facility] Comment on above: Result Comment: KODY GEMENT OF PATIENT CARE PER NURSING PROTOCOL Performed By: #### L 501.080 ####[facility] [address] [place], [address] CBC W/Diff, Automatedon 04-20 Absolute Lymph 0.62 X10 3/uL Low 0.83-4.51 [facility] Comment on above: Performed By: #### L 500.2500, L100.0100 ####[facility] [address] [place], [address] Absolute Neut 2.2 X10 3/uL Normal 2.0-7.7 [facility] Comment on above: Performed By: #### L 500.2500, L100.0100 ####[facility] [address] [place], [address] Basophils/100 WBC (Bld) 0.3 % Normal 0-1 [facility] Comment on above: Performed By: #### L 500.2500, L100.0100 ####[facility] [address] [place], [address] Eosinophils/100 WBC (Bld) 9.4 % High 0-5 [facility] Comment on above: Performed By: #### L 500.2500, L100.0100 ####[facility] [address] [place], [address] Erythrocyte distribution width (RBC) [Ratio] 17.6 % High 11.6-14.6 [facility] Comment on above: Performed By: #### L 500.2500, L100.0100 ####[facility] [address] [place], [address] Hematocrit (Bld) [Volume fraction] 22.9 % Low 40-54 [facility] Comment on above: Performed By: #### L 500.2500, L100.0100 ####[facility] [address] [place], [address] Hemoglobin (Bld) [Mass/Vol] 7.0 g/dL Low 13.0-16.5 [facility] Comment on above: Performed By: #### L 500.2500, L100.0100 ####[facility] [address] [place], [address] IG% 0.500 Normal 0.0-0.9 [facility] Comment on above: Result Comment: IG% - Immature Granulocytes (promyelocytes, myelocytes andmetamyelocytes) > 1% indicates that a LEFT SHIFT is Present. Performed By: #### L 500.2500, L100.0100 ####[facility] [address] [place], [address] Lymphocytes/100 WBC (Bld) 16.1 % Low 19-41 [facility] Comment on above: Performed By: #### L 500.2500, L100.0100 ####[facility] [address] [place], [address] MCH (RBC) [Entitic mass] 27.5 pg Normal 27.0-32.0 [facility] Comment on above: Performed By: #### L 500.2500, L100.0100 ####[facility] [address] [place], [address] MCHC (RBC) [Mass/Vol] 30.6 g/dL Low 32-36 [facility] Comment on above: Performed By: #### L 500.2500, L100.0100 ####[facility] [address] [place], [address] MCV (RBC) [Entitic vol] 89.8 fL Normal 80-94 [facility] Comment on above: Performed By: #### L 500.2500, L100.0100 ####[facility] [address] [place], [address] Monocytes/100 WBC (Bld) 16.4 % High 0-10 [facility] Comment on above: Performed By: #### L 500.2500, L100.0100 ####[facility] [address] [place], [address] Neutrophils/100 WBC (Bld) 57.3 % Normal 47-70 [facility] Comment on above: Performed By: #### L 500.2500, L100.0100 ####[facility] [address] [place], [address] Nucleated RBC (Bld) [#/Vol] 0 10*3/uL Normal 0-5 [facility] Comment on above: Performed By: #### L 500.2500, L100.0100 ####[facility] [address] [place], [address] Platelet mean volume (Bld) [Entitic vol] 10.5 fL Normal 6.2-12.0 [facility] Comment on above: Performed By: #### L 500.2500, L100.0100 ####[facility] [address] [place], [address] Platelets (Bld) [#/Vol] 149 10*3/uL Low 150-450 [facility] Comment on above: Performed By: #### L 500.2500, L100.0100 ####[facility] [address] [place], [address] RBC (Bld) [#/Vol] 2.55 10*6/uL Low 4.6-6.2 [facility] Comment on above: Performed By: #### L 500.2500, L100.0100 ####[facility] [address] [place], [address] RDW SD 57.8 fl High 35.1-43.9 [facility] Comment on above: Performed By: #### L 500.2500, L100.0100 ####[facility] [address] [place], [address] WBC (Bld) [#/Vol] 3.9 10*3/uL Low 4.4-11.0 [facility] Comment on above: Performed By: #### L 500.2500, L100.0100 ####[facility] [address] [place], [address] Carbon dioxide, total [Moles /volume] in Central venous bloodOrdered By: Valdez Olivo on 05-01-2025 CO2 [Moles/Vol] 33.0 mmol/L High 21.0-32.0 [facility] Chloride assayOrdered By: Aiden Olivo on 05-01-2025 Chloride [Moles/Vol] 102 mmol/L 98-108 [facility] Eosinophil percentageOrdered By: Valdez Olivo on 05-01-2025 Eosinophils/100 WBC (Bld) 9.4 % High 0-5 [facility] Erythrocyte distribution wid th ratioOrdered By: Valdez Olivo on 05-01-2025 Erythrocyte distribution width (RBC) [Ratio] 17.6 % High 11.6-14.6 [facility] Erythrocyte distribution wid th standard deviationOrdered By: Valdez Olivo on 05-01-2025 Erythrocyte distribution width (RBC) [Ratio] 57.8 fl High 35.1-43.9 [facility] Glomerular filtration rate ( GFR) estimation/1.73 sq m using serum, plasma, or whole bOrdered By: Valdez Olivo on 05-01-2025 GFR/1.73 sq M.predicted among non-blacks MDRD (S/P/Bld) [Vol rate/Area] 57 mL/min/{1.73_m2} Low >60 [facility] Immature granulocytes/100 WB C Auto (Bld)Ordered By: Valdez Olivo 05-01-2025 Immature granulocytes/100 WBC (Bld) 0.500 % 0.0-0.9 [facility] MCV (mean corpuscular volume ) determinationOrdered By: Valdez Olivo on 05-01-2025 MCV (RBC) [Entitic vol] 89.8 fL 80-94 [facility] Mean corpuscular hemoglobin (MCH) determinationOrdered By: Valdez Olivo 05-01-2025 MCH (RBC) [Entitic mass] 27.5 pg 27.0-32.0 [facility] Monocyte percentageOrdered B y: Valdez Olivo on 05-01-2025 Monocytes/100 WBC (Bld) 16.4 % High 0-10 [facility] Neutrophil percentageOrdered By: Valdez Olivo on 05-01-2025 Neutrophils/100 WBC (Bld) 57.3 % 47-70 [facility] Platelet countOrdered By: Aiden Olivo on 05-01-2025 Platelets (Bld) [#/Vol] 149 10*3/uL Low 150-450 [facility] Potassium measurement (mass/ volume)Ordered By: Valdez Olivo on 05-01-2025 Potassium (Unsp spec) [Mass/Vol] 3.8 mmol/L 3.3-5.1 [facility] RBC Auto (Bld) [#/Vol]Ordere d By: Valdez Olivo on 05-01-2025 RBC (Bld) [#/Vol] 2.55 10*6/uL Low 4.6-6.2 [facility] Serum creatinine measurement (mass/volume)Ordered By: Valdez Geovani on 05-01-2025 Creatinine [Mass/Vol] 1.28 mg/dL High 0.70-1.20 [facility] Serum glucose measurement (m ass/volume)Ordered By: Valdez Geovani on 05-01-2025 Glucose [Mass/Vol] 100 mg/dL High 70-99 [facility] Serum or plasma calcium kingsley urement (mass/volume)Ordered By: Valdez Olivo on 05-01-2025 Calcium [Mass/Vol] 8.8 mg/dL 7.6-11.0 [facility] Serum or plasma urea nitroge n measurement (mass/volume)Ordered By: Valdez Geovani on 05-01-2025 Urea nitrogen [Mass/Vol] 26 mg/dL High 4-19 [facility] Sodium levelOrdered By: Valdez Geovani on 05-01-2025 Sodium [Moles/Vol] 142 mmol/L 133-145 [facility] Type AND Screenon 05-01-2025 ABO and Rh group Nom (Bld) Blood group O Rh(D) positive Normal [facility] Comment on above: Order Comment: CMV N EG? NNumber of units to transfuse: 2Is there a >20% drop in pt's BP? YIs the pt's CVP (central venous pressure) <3 cm/H2O? NIs there an orthostatic change in pt's BP(SBP drop>10mmHg)? YIs pt's HR > 100 bpm? NReason for Ordering Blood: AcuteAre the blood/blood products to be transfused? YIs the patient having/had surgery? Evonne Khan Performed By: #### B , BR ####[facility] [address] [place], [address] White blood cell (WBC) count Ordered By: Valdez Olivo on 05-01-2025 WBC (Bld) [#/Vol] 3.9 10*3/uL Low 4.4-11.0 [facility] Basic Metabolic Profile (BMP )on 04-30-2025 BUN/CRE 20.0 RATIO Normal 10-20 [facility] Comment on above: Performed By: #### L 503.7505, L100.0100, L500.2500 ####[facility] [address] [place], [address] Calcium [Mass/Vol] 9.0 mg/dL Normal 7.6-11.0 [facility] Comment on above: Performed By: #### L 503.7505, L100.0100, L500.2500 ####[facility] [address] [place], [address] Chloride [Moles/Vol] 101 mmol/L Normal 98-108 [facility] Comment on above: Performed By: #### L 503.7505, L100.0100, L500.2500 ####[facility] [address] [place], [address] CO2 [Moles/Vol] 31.1 mmol/L Normal 21.0-32.0 [facility] Comment on above: Performed By: #### L 503.7505, L100.0100, L500.2500 ####[facility] [address] [place], [address] Creatinine [Mass/Vol] 1.35 mg/dL High 0.70-1.20 [facility] Comment on above: Performed By: #### L 503.7505, L100.0100, L500.2500 ####[facility] [address] [place], [address] ECRCL 39.38 ml/min Low 50-250 [facility] Comment on above: Performed By: #### L 503.7505, L100.0100, L500.2500 ####[facility] [address] [place], [address] GAP 8 Normal 5-15 [facility] Comment on above: Performed By: #### L 503.7505, L100.0100, L500.2500 ####[facility] [address] [place], [address] GFR/1.73 sq M.predicted among non-blacks MDRD (S/P/Bld) [Vol rate/Area] 53 mL/min/{1.73_m2} Low >60 [facility] Comment on above: Result Comment: mL/m in/1.73m2 CKD-EPI Creatinine Equation (2020) Performed By: #### L 503.7505, L100.0100, L500.2500 ####[facility] [address] [place], [address] Glucose [Mass/Vol] 221 mg/dL High 70-99 [facility] Comment on above: Performed By: #### L 503.7505, L100.0100, L500.2500 ####[facility] [address] [place], [address] Potassium [Moles/Vol] 4.8 mmol/L Normal 3.3-5.1 [facility] Comment on above: Result Comment: Hemo lysis present, Results??could be affected.?? Performed By: #### L 503.7505, L100.0100, L500.2500 ####[facility] [address] [place], [address] Sodium [Moles/Vol] 140 mmol/L Normal 133-145 [facility] Comment on above: Performed By: #### L 503.7505, L100.0100, L500.2500 ####[facility] [address] [place], [address] Urea nitrogen [Mass/Vol] 27 mg/dL High 4-19 [facility] Comment on above: Performed By: #### L 503.7505, L100.0100, L500.2500 ####[facility] [address] [place], [address] Bedside Glucoseon 04-30-2025 FINGERSTICK GLU 164 mg/dL High 74-106 [facility] Comment on above: Result Comment: KODY GEMENT OF PATIENT CARE PER NURSING PROTOCOL Performed By: #### L 501.080 ####[facility] [address] [place], [address] FINGERSTICK GLU 136 mg/dL High 74-106 [facility] Comment on above: Result Comment: KODY GEMENT OF PATIENT CARE PER NURSING PROTOCOL Performed By: #### L 501.080 ####[facility] [address] [place], [address] FINGERSTICK GLU 213 mg/dL High 74-106 [facility] Comment on above: Result Comment: KODY GEMENT OF PATIENT CARE PER NURSING PROTOCOL Performed By: #### L 501.080 ####[facility] [address] [place], [address] FINGERSTICK GLU 101 mg/dL Normal 74-106 [facility] Comment on above: Result Comment: KODY GEMENT OF PATIENT CARE PER NURSING PROTOCOL Performed By: #### L 501.080 ####[facility] [address] [place], [address] CBC W/Diff, Automatedon 04-20 Absolute Lymph 0.49 X10 3/uL Low 0.83-4.51 [facility] Comment on above: Performed By: #### L 503.7505, L100.0100, L500.2500 ####[facility] [address] [place], [address] Absolute Neut 3.2 X10 3/uL Normal 2.0-7.7 [facility] Comment on above: Performed By: #### L 503.7505, L100.0100, L500.2500 ####[facility] [address] [place], [address] Basophils/100 WBC (Bld) 0.5 % Normal 0-1 [facility] Comment on above: Performed By: #### L 503.7505, L100.0100, L500.2500 ####[facility] [address] [place], [address] Eosinophils/100 WBC (Bld) 2.5 % Normal 0-5 [facility] Comment on above: Performed By: #### L 503.7505, L100.0100, L500.2500 ####[facility] [address] [place], [address] Erythrocyte distribution width (RBC) [Ratio] 17.6 % High 11.6-14.6 [facility] Comment on above: Performed By: #### L 503.7505, L100.0100, L500.2500 ####[facility] [address] [place], [address] Hematocrit (Bld) [Volume fraction] 26.0 % Low 40-54 [facility] Comment on above: Performed By: #### L 503.7505, L100.0100, L500.2500 ####[facility] [address] [place], [address] Hemoglobin (Bld) [Mass/Vol] 7.7 g/dL Low 13.0-16.5 [facility] Comment on above: Performed By: #### L 503.7505, L100.0100, L500.2500 ####[facility] [address] [place], [address] IG% 0.900 Normal 0.0-0.9 [facility] Comment on above: Result Comment: IG% - Immature Granulocytes (promyelocytes, myelocytes andmetamyelocytes) > 1% indicates that a LEFT SHIFT is Present. Performed By: #### L 503.7505, L100.0100, L500.2500 ####[facility] [address] [place], [address] Lymphocytes/100 WBC (Bld) 11.1 % Low 19-41 [facility] Comment on above: Performed By: #### L 503.7505, L100.0100, L500.2500 ####[facility] [address] [place], [address] MCH (RBC) [Entitic mass] 26.9 pg Low 27.0-32.0 [facility] Comment on above: Performed By: #### L 503.7505, L100.0100, L500.2500 ####[facility] [address] [place], [address] MCHC (RBC) [Mass/Vol] 29.6 g/dL Low 32-36 [facility] Comment on above: Performed By: #### L 503.7505, L100.0100, L500.2500 ####[facility] [address] [place], [address] MCV (RBC) [Entitic vol] 90.9 fL Normal 80-94 [facility] Comment on above: Performed By: #### L 503.7505, L100.0100, L500.2500 ####[facility] [address] [place], [address] Monocytes/100 WBC (Bld) 13.6 % High 0-10 [facility] Comment on above: Performed By: #### L 503.7505, L100.0100, L500.2500 ####[facility] [address] [place], [address] Neutrophils/100 WBC (Bld) 71.4 % High 47-70 [facility] Comment on above: Performed By: #### L 503.7505, L100.0100, L500.2500 ####[facility] [address] [place], [address] Nucleated RBC (Bld) [#/Vol] 0 10*3/uL Normal 0-5 [facility] Comment on above: Performed By: #### L 503.7505, L100.0100, L500.2500 ####[facility] [address] [place], [address] Platelet mean volume (Bld) [Entitic vol] 10.6 fL Normal 6.2-12.0 [facility] Comment on above: Performed By: #### L 503.7505, L100.0100, L500.2500 ####[facility] [address] [place], [address] Platelets (Bld) [#/Vol] 163 10*3/uL Normal 150-450 [facility] Comment on above: Performed By: #### L 503.7505, L100.0100, L500.2500 ####[facility] [address] [place], [address] RBC (Bld) [#/Vol] 2.86 10*6/uL Low 4.6-6.2 [facility] Comment on above: Performed By: #### L 503.7505, L100.0100, L500.2500 ####[facility] [address] [place], [address] RDW SD 58.2 fl High 35.1-43.9 [facility] Comment on above: Performed By: #### L 503.7505, L100.0100, L500.2500 ####[facility] [address] [place], [address] WBC (Bld) [#/Vol] 4.4 10*3/uL Normal 4.4-11.0 [facility] Comment on above: Performed By: #### L 503.7505, L100.0100, L500.2500 ####[facility] [address] [place], [address] Chest PA and Lateralon 04-30 Chest PA and Lateral Normal [facility] Natriuretic peptide.B prohor girish N-Terminal [Mass/volume] in Serum or PlasmaOrdered By: Valdez Olivo on 04-30-2025 Natriuretic peptide.B prohormone N-Terminal [Mass/Vol] 5226 pg/mL High <1800 [facility] Pro- Brain NATRIURETIC PEPTI Adrienne 04-30-2025 Natriuretic peptide B (Bld) [Mass/Vol] 5226 pg/mL High <=1800 [facility] Comment on above: Result Comment: Hear t Failure Unlikely: < 300 pg/mLHeart Failure Likely< 50 Years: > 450 pg/mL50-75 Years: > 900 pg/mL>75 Years: > 1800 pg/mL Performed By: #### L 503.7505, L100.0100, L500.2500 ####[facility] [address] [place], [address] Stool Occult Blood iFOBon STOB Positive Normal [facility] Comment on above: Performed By: #### M 100.7900 ####[facility] [address] [place], [address] Stool gastrointestinal hemog lobin detection by immunologic methodOrdered By: Valdez Olivo on 04-30-2025 Lower GI hemoglobin IA Ql (Stl) Positive Abnormal [facility] Bedside Glucoseon 04-29-2025 FINGERSTICK GLU 127 mg/dL High 74-106 [facility] Comment on above: Result Comment: KODY GEMENT OF PATIENT CARE PER NURSING PROTOCOL Performed By: #### L 501.080 ####[facility] [address] [place], [address] FINGERSTICK GLU 117 mg/dL High 74-106 [facility] Comment on above: Result Comment: KODY GEMENT OF PATIENT CARE PER NURSING PROTOCOL Performed By: #### L 501.080 ####[facility] [address] [place], [address] FINGERSTICK GLU 149 mg/dL High 74-106 [facility] Comment on above: Result Comment: KODY GEMENT OF PATIENT CARE PER NURSING PROTOCOL Performed By: #### L 501.080 ####[facility] [address] [place], [address] FINGERSTICK GLU 92 mg/dL Normal 74-106 [facility] Comment on above: Result Comment: KODY GEMENT OF PATIENT CARE PER NURSING PROTOCOL Performed By: #### L 501.080 ####[facility] [address] [place], [address] Bedside Glucoseon 04-28-2025 FINGERSTICK GLU 190 mg/dL High [address] [place] [address] Comment on above: Result Comment: KODY GEMENT OF PATIENT CARE PER NURSING PROTOCOL Performed By: #### L 501.080 ####[facility] [address] [place], [address] FINGERSTICK GLU 129 mg/dL High -106 [facility] Comment on above: Result Comment: KODY GEMENT OF PATIENT CARE PER NURSING PROTOCOL Performed By: #### L 501.080 ####[facility] [address] [place], [address] FINGERSTICK GLU 110 mg/dL High -[address] [place] [address] Comment on above: Result Comment: KDOY GEMENT OF PATIENT CARE PER NURSING PROTOCOL Performed By: #### L 501.080 ####[facility] [address] [place], [address] FINGERSTICK GLU 101 mg/dL Normal -106 [facility] Comment on above: Result Comment: KODY GEMENT OF PATIENT CARE PER NURSING PROTOCOL Performed By: #### L 501.080 ####[facility] [address] [place], [address] [facility] deOrdered By: Valdez Olivo on 04-28-2025 Glucose [Mass/Vol] 190 mg/dL High 74-106 [facility] Pacemaker Checkon 04-28-2025 Pacemaker Check Normal [facility] Bedside Glucoseon 04-27-2025 FINGERSTICK GLU 176 mg/dL High 74-106 [facility] Comment on above: Result Comment: KODY GEMENT OF PATIENT CARE PER NURSING PROTOCOL Performed By: #### L 501.080 ####[facility] [address] [facility] [address] FINGERSTICK GLU 127 mg/dL High 74-106 [facility] Comment on above: Result Comment: KODY GEMENT OF PATIENT CARE PER NURSING PROTOCOL Performed By: #### L 501.080 ####[facility] [address] [facility] [address] FINGERSTICK GLU 164 mg/dL High 74-106 [facility] Comment on above: Result Comment: KODY GEMENT OF PATIENT CARE PER NURSING PROTOCOL Performed By: #### L 501.080 ####[facility] [address] [facility] [address] FINGERSTICK GLU 103 mg/dL Normal -106 [facility] Comment on above: Result Comment: KODY GEMENT OF PATIENT CARE PER NURSING PROTOCOL Performed By: #### L 501.080 ####[facility] [address] [place], [address] Glucose measurement at [facility] deOrdered By: Valdez Olivo on 04-27-2025 Glucose [Mass/Vol] 176 mg/dL High 74-106 [facility] Bedside Glucoseon 04-26-2025 FINGERSTICK GLU 148 mg/dL High 74-106 [facility] Comment on above: Result Comment: KODY GEMENT OF PATIENT CARE PER NURSING PROTOCOL Performed By: #### L 501.080 ####[facility] [address] [facility] [address] FINGERSTICK GLU 128 mg/dL High -106 [facility] Comment on above: Result Comment: KODY GEMENT OF PATIENT CARE PER NURSING PROTOCOL Performed By: #### L 501.080 ####[facility] [address] [place], [address] FINGERSTICK GLU 135 mg/dL High 74-106 [facility] Comment on above: Result Comment: KODY GEMENT OF PATIENT CARE PER NURSING PROTOCOL Performed By: #### L 501.080 ####[facility] [address] [place], [address] FINGERSTICK GLU 124 mg/dL High 74-106 [facility] Comment on above: Result Comment: KODY GEMENT OF PATIENT CARE PER NURSING PROTOCOL Performed By: #### L 501.080 ####[facility] [address] [place], [address] Basic Metabolic Profile (BMP )on 04-25-2025 BUN Normal 4-19 [facility] Comment on above: Result Comment: Canc elled via OM: Order cancelled - Patient discharged Performed By: #### L 100.0100, L500.2500 ####[facility] [address] [place], [address] BUN/CRE Normal 10-20 [facility] Comment on above: Result Comment: Canc elled via OM: Order cancelled - Patient discharged Performed By: #### L 100.0100, L500.2500 ####[facility] [address] [place], [address] Calcium Normal 7.6-11.0 [facility] Comment on above: Result Comment: Canc elled via OM: Order cancelled - Patient discharged Performed By: #### L 100.0100, L500.2500 ####[facility] [address] [place], [address] CL Normal 98-108 [facility] Comment on above: Result Comment: Canc elled via OM: Order cancelled - Patient discharged Performed By: #### L 100.0100, L500.2500 ####[facility] [address] [place], [address] CO2 Normal 21.0-32.0 [facility] Comment on above: Result Comment: Canc elled via OM: Order cancelled - Patient discharged Performed By: #### L 100.0100, L500.2500 ####[facility] [address] [place], [address] CREAT,SERUM Normal 0.70-1.20 [facility] Comment on above: Result Comment: Canc elled via OM: Order cancelled - Patient discharged Performed By: #### L 100.0100, L500.2500 ####[facility] [address] [place], [address] eGFR Normal >60 [facility] Comment on above: Result Comment: Canc elled via OM: Order cancelled - Patient discharged Performed By: #### L 100.0100, L500.2500 ####[facility] [address] [place], [address] GAP Normal 5-15 [facility] Comment on above: Result Comment: Canc elled via OM: Order cancelled - Patient discharged Performed By: #### L 100.0100, L500.2500 ####[facility] [address] [place], [address] GLU Normal 70-99 [facility] Comment on above: Result Comment: Canc elled via OM: Order cancelled - Patient discharged Performed By: #### L 100.0100, L500.2500 ####[facility] [address] [place], [address] Potassium Normal 3.3-5.1 [facility] Comment on above: Result Comment: Canc elled via OM: Order cancelled - Patient discharged Performed By: #### L 100.0100, L500.2500 ####[facility] [address] [place], [address] Basic Metabolic Profile (BMP) Normal 133-145 [facility] Comment on above: Result Comment: Canc elled via OM: Order cancelled - Patient discharged Performed By: #### L 100.0100, L500.2500 ####[facility] [address] [place], [address] Bedside Glucoseon 04-25-2025 FINGERSTICK GLU 170 mg/dL High 74-106 [facility] Comment on above: Result Comment: KODY GEMENT OF PATIENT CARE PER NURSING PROTOCOL Performed By: #### L 501.080 ####[facility] [address] [place], [address] FINGERSTICK GLU 114 mg/dL High 74-106 [facility] Comment on above: Result Comment: KODY GEMENT OF PATIENT CARE PER NURSING PROTOCOL Performed By: #### L 501.080 ####[facility] [address] [place], [address] FINGERSTICK GLU 120 mg/dL High 74-106 [facility] Comment on above: Result Comment: KODY GEMENT OF PATIENT CARE PER NURSING PROTOCOL Performed By: #### L 501.080 ####[facility] [address] [place], [address] FINGERSTICK GLU 96 mg/dL Normal 74-106 [facility] Comment on above: Result Comment: KODY GEMENT OF PATIENT CARE PER NURSING PROTOCOL Performed By: #### L 501.080 ####[facility] [address] [place], [address] FINGERSTICK GLU 64 mg/dL Low 74-106 [facility] Comment on above: Result Comment: KODY GEMENT OF PATIENT CARE PER NURSING PROTOCOL Performed By: #### L 501.080 ####[facility] [address] [place], [address] FINGERSTICK GLU 71 mg/dL Low 74-106 [facility] Comment on above: Result Comment: KODY GEMENT OF PATIENT CARE PER NURSING PROTOCOL Performed By: #### L 501.080 ####[facility] [address] [place], [address] CBC W/Diff, Automatedon 09-0 -2024 Absolute Neut Normal 2.0-7.7 [facility] Comment on above: Result Comment: Canc elled via OM: Order cancelled - Patient discharged Performed By: #### L 100.0100, L500.2500 ####[facility] [address] [place], [address] HCT Normal 40-54 [facility] Comment on above: Result Comment: Canc elled via OM: Order cancelled - Patient discharged Performed By: #### L 100.0100, L500.2500 ####[facility] [address] [place], [address] HGB Normal 13.0-16.5 [facility] Comment on above: Result Comment: Canc elled via OM: Order cancelled - Patient discharged Performed By: #### L 100.0100, L500.2500 ####[facility] [address] [place], [address] MCH Normal 27.0-32.0 [facility] Comment on above: Result Comment: Canc elled via OM: Order cancelled - Patient discharged Performed By: #### L 100.0100, L500.2500 ####[facility] [address] [place], [address] MCHC Normal 32-36 [facility] Comment on above: Result Comment: Canc elled via OM: Order cancelled - Patient discharged Performed By: #### L 100.0100, L500.2500 ####[facility] [address] [place], [address] MCV Normal 80-94 [facility] Comment on above: Result Comment: Canc elled via OM: Order cancelled - Patient discharged Performed By: #### L 100.0100, L500.2500 ####[facility] [address] [place], [address] NEUT% Normal 47-70 [facility] Comment on above: Result Comment: Canc elled via OM: Order cancelled - Patient discharged Performed By: #### L 100.0100, L500.2500 ####[facility] [address] [place], [address] PLT Normal 150-450 [facility] Comment on above: Result Comment: Canc elled via OM: Order cancelled - Patient discharged Performed By: #### L 100.0100, L500.2500 ####[facility] [address] [place], [address] RBC Normal 4.6-6.2 [facility] Comment on above: Result Comment: Canc elled via OM: Order cancelled - Patient discharged Performed By: #### L 100.0100, L500.2500 ####[facility] [address] [place], [address] RDW CV Normal 11.6-14.6 [facility] Comment on above: Result Comment: Canc elled via OM: Order cancelled - Patient discharged Performed By: #### L 100.0100, L500.2500 ####[facility] [address] [place], [address] RDW SD Normal 35.1-43.9 [facility] Comment on above: Result Comment: Canc elled via OM: Order cancelled - Patient discharged Performed By: #### L 100.0100, L500.2500 ####[facility] [address] [place], [address] WBC Normal 4.4-11.0 [facility] Comment on above: Result Comment: Canc elled via OM: Order cancelled - Patient discharged Performed By: #### L 100.0100, L500.2500 ####[facility] [address] [place], [address] Absolute lymphocyte countOrd ered By: Valdez Lariosok on 04-24-2025 Lymphocytes Auto (Unsp spec) [#/Vol] 0.49 10*3/uL Low 0.83-4.51 [facility] Anion gap in Serum or Plasma Ordered By: Valdez Olivo on 04-24-2025 Anion gap [Moles/Vol] 8 mmol/L 5-15 [facility] Automated lymphocyte count a s percentage of total leukocytesOrdered By: Valdez Olivo on 04-24-2025 Lymphocytes/100 WBC Auto (Unsp spec) 7.3 % Low 19-41 [facility] BUN/creatinine ratioOrdered By: Valdez Olivo on 04-24-2025 Urea nitrogen/Creatinine [Mass ratio] 16.4 mg/mg 10- [facility] Basic Metabolic Profile (BMP )on 04-24-2025 BUN/CRE 16.4 RATIO Normal -20 [facility] Comment on above: Performed By: #### L 100.0100, L500.2500 ####[facility] [address] [place], [address] Calcium [Mass/Vol] 8.6 mg/dL Normal 7.6-11.0 [facility] Comment on above: Performed By: #### L 100.0100, L500.2500 ####[facility] [address] [place], [address] Chloride [Moles/Vol] 104 mmol/L Normal 98-108 [facility] Comment on above: Performed By: #### L 100.0100, L500.2500 ####[facility] [address] [place], [address] CO2 [Moles/Vol] 27.4 mmol/L Normal 21.0-32.0 [facility] Comment on above: Performed By: #### L 100.0100, L500.2500 ####[facility] [address] [place], [address] Creatinine [Mass/Vol] 1.28 mg/dL High 0.70-1.20 [facility] Comment on above: Performed By: #### L 100.0100, L500.2500 ####[facility] [address] [place], [address] ECRCL 41.54 ml/min Low 50-250 [facility] Comment on above: Performed By: #### L 100.0100, L500.2500 ####[facility] [address] [place], [address] GAP 8 Normal 5-15 [facility] Comment on above: Performed By: #### L 100.0100, L500.2500 ####[facility] [address] [place], [address] GFR/1.73 sq M.predicted among non-blacks MDRD (S/P/Bld) [Vol rate/Area] 57 mL/min/{1.73_m2} Low >60 [facility] Comment on above: Result Comment: mL/m in/1.73m2 CKD-EPI Creatinine Equation (2020) Performed By: #### L 100.0100, L500.2500 ####[facility] [address] [place], [address] Glucose [Mass/Vol] 153 mg/dL High 70-99 [facility] Comment on above: Performed By: #### L 100.0100, L500.2500 ####[facility] [address] [place], [address] Potassium [Moles/Vol] 4.2 mmol/L Normal 3.3-5.1 [facility] Comment on above: Performed By: #### L 100.0100, L500.2500 ####[facility] [address] [place], [address] Sodium [Moles/Vol] 140 mmol/L Normal 133-145 [facility] Comment on above: Performed By: #### L 100.0100, L500.2500 ####[facility] [address] [place], [address] Urea nitrogen [Mass/Vol] 21 mg/dL High 4-19 [facility] Comment on above: Performed By: #### L 100.0100, L500.2500 ####[facility] [address] [place], [address] Basophil percentageOrdered B y: Valdez Olivo on 04-24-2025 Basophils/100 WBC (Bld) 0.3 % 0-1 [facility] Bedside Glucoseon 04-24-2025 FINGERSTICK GLU 131 mg/dL High 74-106 [facility] Comment on above: Result Comment: KODY GEMENT OF PATIENT CARE PER NURSING PROTOCOL Performed By: #### L 501.080 ####[facility] [address] [place], [address] FINGERSTICK GLU 132 mg/dL High 74-106 [facility] Comment on above: Result Comment: KODY GEMENT OF PATIENT CARE PER NURSING PROTOCOL Performed By: #### L 501.080 ####[facility] [address] [place], [address] FINGERSTICK GLU 119 mg/dL High 74-106 [facility] Comment on above: Result Comment: KODY GEMENT OF PATIENT CARE PER NURSING PROTOCOL Performed By: #### L 501.080 ####[facility] [address] [place], [address] FINGERSTICK GLU 120 mg/dL High 74-106 [facility] Comment on above: Result Comment: KODY GEMENT OF PATIENT CARE PER NURSING PROTOCOL Performed By: #### L 501.080 ####[facility] [address] [place], [address] CBC W/Diff, Automatedon 09-0 Absolute Lymph 0.49 X10 3/uL Low 0.83-4.51 [facility] Comment on above: Performed By: #### L 100.0100, L500.2500 ####[facility] [address] [place], [address] Absolute Neut 5.4 X10 3/uL Normal 2.0-7.7 [facility] Comment on above: Performed By: #### L 100.0100, L500.2500 ####[facility] [address] [place], [address] Basophils/100 WBC (Bld) 0.3 % Normal 0-1 [facility] Comment on above: Performed By: #### L 100.0100, L500.2500 ####[facility] [address] [place], [address] Eosinophils/100 WBC (Bld) 2.5 % Normal 0-5 [facility] Comment on above: Performed By: #### L 100.0100, L500.2500 ####[facility] [address] [place], [address] Erythrocyte distribution width (RBC) [Ratio] 17.6 % High 11.6-14.6 [facility] Comment on above: Performed By: #### L 100.0100, L500.2500 ####[facility] [address] [place], [address] Hematocrit (Bld) [Volume fraction] 26.6 % Low 40-54 [facility] Comment on above: Performed By: #### L 100.0100, L500.2500 ####[facility] [address] [place], [address] Hemoglobin (Bld) [Mass/Vol] 8.0 g/dL Low 13.0-16.5 [facility] Comment on above: Performed By: #### L 100.0100, L500.2500 ####[facility] [address] [place], [address] IG% 0.900 Normal 0.0-0.9 [facility] Comment on above: Result Comment: IG% - Immature Granulocytes (promyelocytes, myelocytes andmetamyelocytes) > 1% indicates that a LEFT SHIFT is Present. Performed By: #### L 100.0100, L500.2500 ####[facility] [address] [place], [address] Lymphocytes/100 WBC (Bld) 7.3 % Low 19-41 [facility] Comment on above: Performed By: #### L 100.0100, L500.2500 ####[facility] [address] [place], [address] MCH (RBC) [Entitic mass] 27.1 pg Normal 27.0-32.0 [facility] Comment on above: Performed By: #### L 100.0100, L500.2500 ####[facility] [address] [place], [address] MCHC (RBC) [Mass/Vol] 30.1 g/dL Low 32-36 [facility] Comment on above: Performed By: #### L 100.0100, L500.2500 ####[facility] [address] [place], [address] MCV (RBC) [Entitic vol] 90.2 fL Normal 80-94 [facility] Comment on above: Performed By: #### L 100.0100, L500.2500 ####[facility] [address] [place], [address] Monocytes/100 WBC (Bld) 8.0 % Normal 0-10 [facility] Comment on above: Performed By: #### L 100.0100, L500.2500 ####[facility] [address] [place], [address] Neutrophils/100 WBC (Bld) 81.0 % High 47-70 [facility] Comment on above: Performed By: #### L 100.0100, L500.2500 ####[facility] [address] [place], [address] Nucleated RBC (Bld) [#/Vol] 0 10*3/uL Normal 0-5 [facility] Comment on above: Performed By: #### L 100.0100, L500.2500 ####[facility] [address] [place], [address] Platelet mean volume (Bld) [Entitic vol] 10.5 fL Normal 6.2-12.0 [facility] Comment on above: Performed By: #### L 100.0100, L500.2500 ####[facility] [address] [place], [address] Platelets (Bld) [#/Vol] 132 10*3/uL Low 150-450 [facility] Comment on above: Performed By: #### L 100.0100, L500.2500 ####[facility] [address] [place], [address] RBC (Bld) [#/Vol] 2.95 10*6/uL Low 4.6-6.2 [facility] Comment on above: Performed By: #### L 100.0100, L500.2500 ####[facility] [address] [place], [address] RDW SD 58.4 fl High 35.1-43.9 [facility] Comment on above: Performed By: #### L 100.0100, L500.2500 ####[facility] [address] [place], [address] WBC (Bld) [#/Vol] 6.7 10*3/uL Normal 4.4-11.0 [facility] Comment on above: Performed By: #### L 100.0100, L500.2500 ####[facility] [address] [place], [address] Carbon dioxide, total [Moles /volume] in Central venous bloodOrdered By: Valdez Olivo on 04-24-2025 CO2 [Moles/Vol] 27.4 mmol/L 21.0-32.0 [facility] Chloride assayOrdered By: Aiden Olivo on 04-24-2025 Chloride [Moles/Vol] 104 mmol/L 98-108 [facility] Eosinophil percentageOrdered By: Valdez Olivo 04-24-2025 Eosinophils/100 WBC (Bld) 2.5 % 0-5 [facility] Erythrocyte distribution wid th ratioOrdered By: Valdez Olivo 04-24-2025 Erythrocyte distribution width (RBC) [Ratio] 17.6 % High 11.6-14.6 [facility] Erythrocyte distribution wid th standard deviationOrdered By: Valdez Olivo 04-24-2025 Erythrocyte distribution width (RBC) [Ratio] 58.4 fl High 35.1-43.9 [facility] Glomerular filtration rate ( GFR) estimation/1.73 sq m using serum, plasma, or whole bOrdered By: Valdez Olivo on 04-24-2025 GFR/1.73 sq M.predicted among non-blacks MDRD (S/P/Bld) [Vol rate/Area] 57 mL/min/{1.73_m2} Low >60 [facility] Hematocrit Auto (Bld) [Volum e fraction]Ordered By: Valdez Olivo 04-24-2025 Hematocrit (Bld) [Volume fraction] 26.6 % Low 40-54 [facility] Hemoglobin measurementOrdere d By: Valdez Olivo 04-24-2025 Hemoglobin (Bld) [Mass/Vol] 8.0 g/dL Low 13.0-16.5 [facility] Immature granulocytes/100 WB C Auto (Bld)Ordered By: Valdez Olivo 04-24-2025 Immature granulocytes/100 WBC (Bld) 0.900 % 0.0-0.9 [facility] MCV (mean corpuscular volume ) determinationOrdered By: Valdez Olivo 04-24-2025 MCV (RBC) [Entitic vol] 90.2 fL 80-94 [facility] Mean corpuscular hemoglobin (MCH) determinationOrdered By: Valdez Olivo on 04-24-2025 MCH (RBC) [Entitic mass] 27.1 pg 27.0-32.0 [facility] Monocyte percentageOrdered B y: Valdez Olivo on 04-24-2025 Monocytes/100 WBC (Bld) 8.0 % 0-10 [facility] Neutrophil percentageOrdered By: Valdez Olvio on 04-24-2025 Neutrophils/100 WBC (Bld) 81.0 % High 47-70 [facility] Platelet countOrdered By: Aiden Olivo on 04-24-2025 Platelets (Bld) [#/Vol] 132 10*3/uL Low 150-450 [facility] Potassium measurement (mass/ volume)Ordered By: Valdez Olivo on 04-24-2025 Potassium (Unsp spec) [Mass/Vol] 4.2 mmol/L 3.3-5.1 [facility] RBC Auto (Bld) [#/Vol]Ordere d By: Valdez Olivo on 04-24-2025 RBC (Bld) [#/Vol] 2.95 10*6/uL Low 4.6-6.2 [facility] Serum creatinine measurement (mass/volume)Ordered By: Valdez Olivo 04-24-2025 Creatinine [Mass/Vol] 1.28 mg/dL High 0.70-1.20 [facility] Serum glucose measurement (m ass/volume)Ordered By: Valdez Olivo on 04-24-2025 Glucose [Mass/Vol] 153 mg/dL High 70-99 [facility] Serum or plasma calcium kingsley urement (mass/volume)Ordered By: Valdez Olivo 04-24-2025 Calcium [Mass/Vol] 8.6 mg/dL 7.6-11.0 [facility] Serum or plasma urea nitroge n measurement (mass/volume)Ordered By: Valdez Olivo 04-24-2025 Urea nitrogen [Mass/Vol] 21 mg/dL High 4-19 [facility] Sodium levelOrdered By: Valdez Olivo 04-24-2025 Sodium [Moles/Vol] 140 mmol/L 133-145 [facility] White blood cell (WBC) count Ordered By: Valdez Olivo 04-24-2025 WBC (Bld) [#/Vol] 6.7 10*3/uL 4.4-11.0 [facility] Bedside Glucoseon 04-23-2025 FINGERSTICK GLU 164 mg/dL High -106 [facility] Comment on above: Result Comment: KODY GEMENT OF PATIENT CARE PER NURSING PROTOCOL Performed By: #### L 501.080 ####[facility] [address] [place], [address] FINGERSTICK GLU 127 mg/dL High 74-106 [facility] Comment on above: Result Comment: KODY GEMENT OF PATIENT CARE PER NURSING PROTOCOL Performed By: #### L 501.080 ####[facility] [address] [place], [address] FINGERSTICK GLU 231 mg/dL High -106 [facility] Comment on above: Result Comment: KODY GEMENT OF PATIENT CARE PER NURSING PROTOCOL Performed By: #### L 501.080 ####[facility] [address] [place], [address] FINGERSTICK GLU 130 mg/dL High [facility]106 [facility] Comment on above: Result Comment: KODY GEMENT OF PATIENT CARE PER NURSING PROTOCOL Performed By: #### L 501.080 ####[facility] [address] [place], [address] [facility] deOrdered By: Tonio Mccallum on 04-23-2025 Glucose [Mass/Vol] 127 mg/dL High 74-106 [facility] Bedside Glucoseon 04-22-2025 FINGERSTICK GLU 120 mg/dL High -106 [facility] Comment on above: Result Comment: KODY GEMENT OF PATIENT CARE PER NURSING PROTOCOL Performed By: #### L 501.080 ####[facility] [address] [place], [address] FINGERSTICK GLU 151 mg/dL High [facility]106 [facility] Comment on above: Result Comment: KODY GEMENT OF PATIENT CARE PER NURSING PROTOCOL Performed By: #### L 501.080 ####[facility] [address] [place], [address] FINGERSTICK GLU 231 mg/dL High 74-106 [facility] Comment on above: Result Comment: KODY GEMENT OF PATIENT CARE PER NURSING PROTOCOL Performed By: #### L 501.080 ####[facility] [address] [place], [address] FINGERSTICK GLU 119 mg/dL High 74-106 [facility] Comment on above: Result Comment: KODY GEMENT OF PATIENT CARE PER NURSING PROTOCOL Performed By: #### L 501.080 ####[facility] [address] [place], [address] Anion gap in Serum or Plasma Ordered By: Tonio Mccallum on 04-21-2025 Anion gap [Moles/Vol] 10 mmol/L 5-15 [facility] BUN/creatinine ratioOrdered By: Tonio Mccallum on 04-21-2025 Urea nitrogen/Creatinine [Mass ratio] 20.6 mg/mg High 10-20 [facility] Basic Metabolic Profile (BMP )on 04-21-2025 BUN/CRE 20.6 RATIO High 10-20 [facility] Comment on above: Performed By: #### L 500.2500 ####[facility] [address] [place], [address] Calcium [Mass/Vol] 8.6 mg/dL Normal 7.6-11.0 [facility] Comment on above: Performed By: #### L 500.2500 ####[facility] [address] [place], [address] Chloride [Moles/Vol] 96 mmol/L Low 98-108 [facility] Comment on above: Performed By: #### L 500.2500 ####[facility] [address] [place], [address] CO2 [Moles/Vol] 29.6 mmol/L Normal 21.0-32.0 [facility] Comment on above: Performed By: #### L 500.2500 ####[facility] [address] [place], [address] Creatinine [Mass/Vol] 1.56 mg/dL High 0.70-1.20 [facility] Comment on above: Performed By: #### L 500.2500 ####[facility] [address] [place], [address] ECRCL 34.08 ml/min Low 50-250 [facility] Comment on above: Performed By: #### L 500.2500 ####[facility] [address] [place], [address] GAP 10 Normal 5-15 [facility] Comment on above: Performed By: #### L 500.2500 ####[facility] [address] [place], [address] GFR/1.73 sq M.predicted among non-blacks MDRD (S/P/Bld) [Vol rate/Area] 45 mL/min/{1.73_m2} Low >60 [facility] Comment on above: Result Comment: mL/m in/1.73m2 CKD-EPI Creatinine Equation (2020) Performed By: #### L 500.2500 ####[facility] [address] [place], [address] Glucose [Mass/Vol] 137 mg/dL High 70-99 [facility] Comment on above: Performed By: #### L 500.2500 ####[facility] [address] [place], [address] Potassium [Moles/Vol] 3.5 mmol/L Normal 3.3-5.1 [facility] Comment on above: Performed By: #### L 500.2500 ####[facility] [address] [place], [address] Sodium [Moles/Vol] 136 mmol/L Normal 133-145 [facility] Comment on above: Performed By: #### L 500.2500 ####[facility] [address] [place], [address] Urea nitrogen [Mass/Vol] 32 mg/dL High 4-19 [facility] Comment on above: Performed By: #### L 500.2500 ####[facility] [address] [place], [address] Bedside Glucoseon 04-21-2025 FINGERSTICK GLU 140 mg/dL High 74-106 [facility] Comment on above: Result Comment: KODY GEMENT OF PATIENT CARE PER NURSING PROTOCOL Performed By: #### L 501.080 ####[facility] [address] [place], [address] FINGERSTICK GLU 220 mg/dL High 74-106 [facility] Comment on above: Result Comment: KODY GEMENT OF PATIENT CARE PER NURSING PROTOCOL Performed By: #### L 501.080 ####[facility] [address] [place], [address] FINGERSTICK GLU 231 mg/dL High 74-106 [facility] Comment on above: Result Comment: KODY GEMENT OF PATIENT CARE PER NURSING PROTOCOL Performed By: #### L 501.080 ####[facility] [address] [place], [address] FINGERSTICK GLU 134 mg/dL High 74-106 [facility] Comment on above: Result Comment: KODY GEMENT OF PATIENT CARE PER NURSING PROTOCOL Performed By: #### L 501.080 ####[facility] [address] [place], [address] Carbon dioxide, total [Moles /volume] in Central venous bloodOrdered By: Tonio Mccallum on 04-21-2025 CO2 [Moles/Vol] 29.6 mmol/L 21.0-32.0 [facility] Chloride assayOrdered By: Min Mccallum on 04-21-2025 Chloride [Moles/Vol] 96 mmol/L Low 98-108 [facility] Electrocardiogram reportOrde red By: Willian Glaser on 04-21-2025 EKG study [facility] Work Phone: Glomerular filtration rate ( GFR) estimation/1.73 sq m using serum, plasma, or whole bOrdered By: Tonio Mccallum on 04-21-2025 GFR/1.73 sq M.predicted among non-blacks MDRD (S/P/Bld) [Vol rate/Area] 45 mL/min/{1.73_m2} Low >60 [facility] Potassium measurement (mass/ volume)Ordered By: Tonio Mccallum on 04-21-2025 Potassium (Unsp spec) [Mass/Vol] 3.5 mmol/L 3.3-5.1 [facility] Serum creatinine measurement (mass/volume)Ordered By: Tonio Mccallum on 04-21-2025 Creatinine [Mass/Vol] 1.56 mg/dL High 0.70-1.20 [facility] Serum glucose measurement (m ass/volume)Ordered By: Tonio Mccallum on 04-21-2025 Glucose [Mass/Vol] 137 mg/dL High 70-99 [facility] Serum or plasma calcium kingsley urement (mass/volume)Ordered By: Tonio Mccallum on 04-21-2025 Calcium [Mass/Vol] 8.6 mg/dL 7.6-11.0 [facility] Serum or plasma urea nitroge n measurement (mass/volume)Ordered By: Tonio Mccallum on 04-21-2025 Urea nitrogen [Mass/Vol] 32 mg/dL High 4-19 [facility] Sodium levelOrdered By: Tonio Mccallum on 04-21-2025 Sodium [Moles/Vol] 136 mmol/L 133-145 [facility] Basic Metabolic Profile (BMP )on 04-20-2025 BUN/CRE 22.4 RATIO High 10-20 [facility] Comment on above: Performed By: #### L 100.0500, L500.2500 ####[facility] [address] [place], [place], [id number] Calcium [Mass/Vol] 9.1 mg/dL Normal 7.6-11.0 [facility] Comment on above: Performed By: #### L 100.0500, L500.2500 ####[facility] [address] [place], [address] Chloride [Moles/Vol] 91 mmol/L Low 98-108 [facility] Comment on above: Performed By: #### L 100.0500, L500.2500 ####[facility] [address] [place], [address] CO2 [Moles/Vol] 32.1 mmol/L High 21.0-32.0 [facility] Comment on above: Performed By: #### L 100.0500, L500.2500 ####[facility] [address] [place], [address] Creatinine [Mass/Vol] 1.65 mg/dL High 0.70-1.20 [facility] Comment on above: Performed By: #### L 100.0500, L500.2500 ####[facility] [address] [place], [address] ECRCL 32.22 ml/min Low 50-250 [facility] Comment on above: Performed By: #### L 100.0500, L500.2500 ####[facility] [address] [place], [address] GAP 12 Normal 5-15 [facility] Comment on above: Performed By: #### L 100.0500, L500.2500 ####[facility] [address] [place], [address] GFR/1.73 sq M.predicted among non-blacks MDRD (S/P/Bld) [Vol rate/Area] 42 mL/min/{1.73_m2} Low >60 [facility] Comment on above: Result Comment: mL/m in/1.73m2 CKD-EPI Creatinine Equation (2020) Performed By: #### L 100.0500, L500.2500 ####[facility] [address] [place], [address] Glucose [Mass/Vol] 154 mg/dL High 70-99 [facility] Comment on above: Performed By: #### L 100.0500, L500.2500 ####[facility] [address] [place], [address] Potassium [Moles/Vol] 3.4 mmol/L Normal 3.3-5.1 [facility] Comment on above: Performed By: #### L 100.0500, L500.2500 ####[facility] [address] [place], [address] Sodium [Moles/Vol] 135 mmol/L Normal 133-145 [facility] Comment on above: Performed By: #### L 100.0500, L500.2500 ####[facility] [address] [place], [address] Urea nitrogen [Mass/Vol] 37 mg/dL High 4-19 [facility] Comment on above: Performed By: #### L 100.0500, L500.2500 ####[facility] [address] [place], [address] Bedside Glucoseon 04-20-2025 FINGERSTICK GLU 213 mg/dL High 74-106 [facility] Comment on above: Result Comment: KODY GEMENT OF PATIENT CARE PER NURSING PROTOCOL Performed By: #### L 501.080 ####[facility] [address] [place], [address] FINGERSTICK GLU 173 mg/dL High 74-106 [facility] Comment on above: Result Comment: KODY GEMENT OF PATIENT CARE PER NURSING PROTOCOL Performed By: #### L 501.080 ####[facility] [address] [place], [address] FINGERSTICK GLU 178 mg/dL High 74-106 [facility] Comment on above: Result Comment: KODY GEMENT OF PATIENT CARE PER NURSING PROTOCOL Performed By: #### L 501.080 ####[facility] [address] [place], [address] FINGERSTICK GLU 156 mg/dL High 74-106 [facility] Comment on above: Result Comment: KODY GEMENT OF PATIENT CARE PER NURSING PROTOCOL Performed By: #### L 501.080 ####[facility] [address] [place], [address] CBC-Complete Blood Cnt No Di ffon 04-20-2025 Erythrocyte distribution width (RBC) [Ratio] 17.1 % High 11.6-14.6 [facility] Comment on above: Performed By: #### L 100.0500, L500.2500 ####[facility] [address] [place], [address] Hematocrit (Bld) [Volume fraction] 29.4 % Low 40-54 [facility] Comment on above: Performed By: #### L 100.0500, L500.2500 ####[facility] [address] [place], [address] Hemoglobin (Bld) [Mass/Vol] 9.1 g/dL Low 13.0-16.5 [facility] Comment on above: Performed By: #### L 100.0500, L500.2500 ####[facility] [address] [place], [address] MCH (RBC) [Entitic mass] 26.8 pg Low 27.0-32.0 [facility] Comment on above: Performed By: #### L 100.0500, L500.2500 ####[facility] [address] [place], [address] MCHC (RBC) [Mass/Vol] 31.0 g/dL Low 32-36 [facility] Comment on above: Performed By: #### L 100.0500, L500.2500 ####[facility] [address] [place], [address] MCV (RBC) [Entitic vol] 86.7 fL Normal 80-94 [facility] Comment on above: Performed By: #### L 100.0500, L500.2500 ####[facility] [address] [place], [address] Platelet mean volume (Bld) [Entitic vol] 11.0 fL Normal 6.2-12.0 [facility] Comment on above: Performed By: #### L 100.0500, L500.2500 ####[facility] [address] [place], [address] Platelets (Bld) [#/Vol] 192 10*3/uL Normal 150-450 [facility] Comment on above: Performed By: #### L 100.0500, L500.2500 ####[facility] [address] [place], [address] RBC (Bld) [#/Vol] 3.39 10*6/uL Low 4.6-6.2 [facility] Comment on above: Performed By: #### L 100.0500, L500.2500 ####[facility] [address] [place], [address] RDW SD 53.4 fl High 35.1-43.9 [facility] Comment on above: Performed By: #### L 100.0500, L500.2500 ####[facility] [address] [place], [address] WBC (Bld) [#/Vol] 9.9 10*3/uL Normal 4.4-11.0 [facility] Comment on above: Performed By: #### L 100.0500, L500.2500 ####[facility] [address] [place], [address] Erythrocyte distribution wid th ratioOrdered By: Kwaku Narayanan on 04-20-2025 Erythrocyte distribution width (RBC) [Ratio] 17.1 % High 11.6-14.6 [facility] Erythrocyte distribution wid th standard deviationOrdered By: Kwaku Narayanan on 04-20-2025 Erythrocyte distribution width (RBC) [Ratio] 53.4 fl High 35.1-43.9 [facility] Hematocrit Auto (Bld) [Volum e fraction]Ordered By: Kwaku Narayanan on 04-20-2025 Hematocrit (Bld) [Volume fraction] 29.4 % Low 40-54 [facility] Hemoglobin measurementOrdere d By: Kwaku Narayanan on 04-20-2025 Hemoglobin (Bld) [Mass/Vol] 9.1 g/dL Low 13.0-16.5 [facility] MCV (mean corpuscular volume ) determinationOrdered By: Kwaku Narayanan on 04-20-2025 MCV (RBC) [Entitic vol] 86.7 fL 80-94 [facility] Mean corpuscular hemoglobin (MCH) determinationOrdered By: Kwaku Narayanan on 04-20-2025 MCH (RBC) [Entitic mass] 26.8 pg Low 27.0-32.0 [facility] Platelet countOrdered By: Sean Narayanan on 04-20-2025 Platelets (Bld) [#/Vol] 192 10*3/uL 150-450 [facility] RBC Auto (Bld) [#/Vol]Ordere d By: Kwaku Narayanan on 04-20-2025 RBC (Bld) [#/Vol] 3.39 10*6/uL Low 4.6-6.2 [facility] White blood cell (WBC) count Ordered By: Kwaku Narayanan on 04-20-2025 WBC (Bld) [#/Vol] 9.9 10*3/uL 4.4-11.0 [facility] 12 Lead EKGon 04-19-2025 12 Lead EKG Normal [facility] Absolute lymphocyte countOrd ered By: Casper Iniguez on 04-19-2025 Lymphocytes Auto (Unsp spec) [#/Vol] 0.97 10*3/uL 0.83-4.51 [facility] Anion gap in Serum or Plasma Ordered By: Casper Iniguez on 04-19-2025 Anion gap [Moles/Vol] 11 mmol/L 5-15 [facility] Automated lymphocyte count a s percentage of total leukocytesOrdered By: Casper Iniguez on 04-19-2025 Lymphocytes/100 WBC Auto (Unsp spec) 9.1 % Low 19-41 [facility] BUN/creatinine ratioOrdered By: Casper Iniguez on 04-19-2025 Urea nitrogen/Creatinine [Mass ratio] 22.7 mg/mg High 10-20 [facility] Basophil percentageOrdered B y: Casper Iniguez on 04-19-2025 Basophils/100 WBC (Bld) 0.3 % 0-1 [facility] Bedside Glucoseon 04-19-2025 FINGERSTICK GLU 178 mg/dL High 74-106 [facility] Comment on above: Result Comment: KODY GEMENT OF PATIENT CARE PER NURSING PROTOCOL Performed By: #### L 501.080 ####[facility] [address] [facility] [address] FINGERSTICK GLU 193 mg/dL High 74-106 [facility] Comment on above: Result Comment: KODY GEMENT OF PATIENT CARE PER NURSING PROTOCOL Performed By: #### L 501.080 ####[facility] [address] [place], [address] FINGERSTICK GLU 91 mg/dL Normal 74-106 [facility] Comment on above: Result Comment: KODY GEMENT OF PATIENT CARE PER NURSING PROTOCOL Performed By: #### L 501.080 ####[facility] [address] [place], [address] FINGERSTICK GLU 123 mg/dL High 74-106 [facility] Comment on above: Result Comment: KODY GEMENT OF PATIENT CARE PER NURSING PROTOCOL Performed By: #### L 501.080 ####[facility] [address] [place], [address] Bilirubin, totalOrdered By: Casper Iniguez on 04-19-2025 Bilirubin [Mass/Vol] 0.55 mg/dL 0.00-1.30 [facility] CBC W/Diff, Automatedon 03-22 Absolute Lymph 0.97 X10 3/uL Normal 0.83-4.51 [facility] Comment on above: Performed By: #### L 100.0100, L501.4021, L500.4050 ####[facility] [facility] [address] [place], [address] Absolute Neut 8.0 X10 3/uL High 2.0-7.7 [facility] Comment on above: Performed By: #### L 100.0100, L501.4021, L500.4050 ####[facility] [address] [place], [address] Basophils/100 WBC (Bld) 0.3 % Normal 0-1 [facility] Comment on above: Performed By: #### L 100.0100, L501.4021, L500.4050 ####[facility] [address] [place], [address] Eosinophils/100 WBC (Bld) 2.7 % Normal 0-5 [facility] Comment on above: Performed By: #### L 100.0100, L501.4021, L500.4050 ####[facility] [address] [place], [address] Erythrocyte distribution width (RBC) [Ratio] 17.2 % High 11.6-14.6 [facility] Comment on above: Performed By: #### L 100.0100, L501.4021, L500.4050 ####[facility] [address] [place], [address] Hematocrit (Bld) [Volume fraction] 30.6 % Low 40-54 [facility] Comment on above: Performed By: #### L 100.0100, L501.4021, L500.4050 ####[facility] [address] [place], [address] Hemoglobin (Bld) [Mass/Vol] 9.6 g/dL Low 13.0-16.5 [facility] Comment on above: Performed By: #### L 100.0100, L501.4021, L500.4050 ####[facility] [address] [place], [address] IG% 1.600 High 0.0-0.9 [facility] Comment on above: Result Comment: IG% - Immature Granulocytes (promyelocytes, myelocytes andmetamyelocytes) > 1% indicates that a LEFT SHIFT is Present. Performed By: #### L 100.0100, L501.4021, L500.4050 ####[facility] [address] [place], [address] Lymphocytes/100 WBC (Bld) 9.1 % Low 19-41 [facility] Comment on above: Performed By: #### L 100.0100, L501.4021, L500.4050 ####[facility] [address] [place], [address] MCH (RBC) [Entitic mass] 27.4 pg Normal 27.0-32.0 [facility] Comment on above: Performed By: #### L 100.0100, L501.4021, L500.4050 ####[facility] [address] [place], [address] MCHC (RBC) [Mass/Vol] 31.4 g/dL Low 32-36 [facility] Comment on above: Performed By: #### L 100.0100, L501.4021, L500.4050 ####[facility] [address] [place], [address] MCV (RBC) [Entitic vol] 87.2 fL Normal 80-94 [facility] Comment on above: Performed By: #### L 100.0100, L501.4021, L500.4050 ####[facility] [address] [place], [address] Monocytes/100 WBC (Bld) 11.3 % High 0-10 [facility] Comment on above: Performed By: #### L 100.0100, L501.4021, L500.4050 ####[facility] [address] [place], [address] Neutrophils/100 WBC (Bld) 75.0 % High 47-70 [facility] Comment on above: Performed By: #### L 100.0100, L501.4021, L500.4050 ####[facility] [address] [place], [address] Nucleated RBC (Bld) [#/Vol] 0 10*3/uL Normal 0-5 [facility] Comment on above: Performed By: #### L 100.0100, L501.4021, L500.4050 ####[facility] [address] [place], [address] Platelet mean volume (Bld) [Entitic vol] 11.1 fL Normal 6.2-12.0 [facility] Comment on above: Performed By: #### L 100.0100, L501.4021, L500.4050 ####[facility] [address] [place], [address] Platelets (Bld) [#/Vol] 204 10*3/uL Normal 150-450 [facility] Comment on above: Performed By: #### L 100.0100, L501.4021, L500.4050 ####[facility] [address] [place], [address] RBC (Bld) [#/Vol] 3.51 10*6/uL Low 4.6-6.2 [facility] Comment on above: Performed By: #### L 100.0100, L501.4021, L500.4050 ####[facility] [address] [place], [address] RDW SD 54.8 fl High 35.1-43.9 [facility] Comment on above: Performed By: #### L 100.0100, L501.4021, L500.4050 ####[facility] [address] [place], [address] WBC (Bld) [#/Vol] 10.7 10*3/uL Normal 4.4-11.0 [facility] Comment on above: Performed By: #### L 100.0100, L501.4021, L500.4050 ####[facility] [address] [place], [address] Carbon dioxide, total [Moles /volume] in Central venous bloodOrdered By: Casper Iniguez on 04-19-2025 CO2 [Moles/Vol] 37.3 mmol/L High 21.0-32.0 [facility] Chest 1 View (Portable)on Chest 1 View (Portable) Normal [facility] Chloride assayOrdered By: Akin Iniguez on 04-19-2025 Chloride [Moles/Vol] 87 mmol/L Low 98-108 [facility] Comprehensive Metabolic Prof ilon 04-19-2025 Albumin [Mass/Vol] 3.4 g/dL Normal 3.4-4.8 [facility] Comment on above: Performed By: #### L 100.0100, L501.4021, L500.4050 ####[facility] [address] [place], [address] Albumin/Globulin [Mass ratio] 1.0 {ratio} Normal 0.9-2.4 [facility] Comment on above: Performed By: #### L 100.0100, L501.4021, L500.4050 ####[facility] [address] [place], [address] ALK PHOS 79 U/L Normal 40-129 [facility] Comment on above: Performed By: #### L 100.0100, L501.4021, L500.4050 ####[facility] [address] [place], [address] ALT [Catalytic activity/Vol] 27 U/L Normal <=46 [facility] Comment on above: Performed By: #### L 100.0100, L501.4021, L500.4050 ####[facility] [address] [place], [address] AST [Catalytic activity/Vol] 30 U/L Normal <=37 [facility] Comment on above: Performed By: #### L 100.0100, L501.4021, L500.4050 ####[facility] [address] [place], [address] Bilirubin [Mass/Vol] 0.55 mg/dL Normal 0.00-1.30 [facility] Comment on above: Performed By: #### L 100.0100, L501.4021, L500.4050 ####[facility] [address] [place], [address] BUN/CRE 22.7 RATIO High 10-20 [facility] Comment on above: Performed By: #### L 100.0100, L501.4021, L500.4050 ####[facility] [address] [place], [address] Calcium [Mass/Vol] 9.4 mg/dL Normal 7.6-11.0 [facility] Comment on above: Performed By: #### L 100.0100, L501.4021, L500.4050 ####[facility] [address] [place], [address] Chloride [Moles/Vol] 87 mmol/L Low 98-108 [facility] Comment on above: Performed By: #### L 100.0100, L501.4021, L500.4050 ####[facility] [address] [place], [address] CO2 [Moles/Vol] 37.3 mmol/L High 21.0-32.0 [facility] Comment on above: Performed By: #### L 100.0100, L501.4021, L500.4050 ####[facility] [address] [place], [address] Creatinine [Mass/Vol] 1.74 mg/dL High 0.70-1.20 [facility] Comment on above: Performed By: #### L 100.0100, L501.4021, L500.4050 ####[facility] [address] [place], [address] ECRCL 30.56 ml/min Low 50-250 [facility] Comment on above: Performed By: #### L 100.0100, L501.4021, L500.4050 ####[facility] [address] [place], [address] GAP 11 Normal 5-15 [facility] Comment on above: Performed By: #### L 100.0100, L501.4021, L500.4050 ####[facility] [address] [place], [address] GFR/1.73 sq M.predicted among non-blacks MDRD (S/P/Bld) [Vol rate/Area] 39 mL/min/{1.73_m2} Low >60 [facility] Comment on above: Result Comment: mL/m in/1.73m2 CKD-EPI Creatinine Equation (2020) Performed By: #### L 100.0100, L501.4021, L500.4050 ####[facility] [address] [place], [address] Globulin (S) [Mass/Vol] 3.4 g/dL Normal 2.2-4.2 [facility] Comment on above: Performed By: #### L 100.0100, L501.4021, L500.4050 ####[facility] [address] [place], [address] Glucose [Mass/Vol] 132 mg/dL High 70-99 [facility] Comment on above: Performed By: #### L 100.0100, L501.4021, L500.4050 ####[facility] [address] [place], [address] Potassium [Moles/Vol] 3.5 mmol/L Normal 3.3-5.1 [facility] Comment on above: Performed By: #### L 100.0100, L501.4021, L500.4050 ####[facility] [address] [place], [address] Sodium [Moles/Vol] 136 mmol/L Normal 133-145 [facility] Comment on above: Performed By: #### L 100.0100, L501.4021, L500.4050 ####[facility] [address] [place], [address] T PROT 6.8 g/dL Normal 5.9-8.4 [facility] Comment on above: Performed By: #### L 100.0100, L501.4021, L500.4050 ####[facility] [address] [place], [address] Urea nitrogen [Mass/Vol] 40 mg/dL High 4-19 [facility] Comment on above: Performed By: #### L 100.0100, L501.4021, L500.4050 ####[facility] [address] [place], [address] Emergency Department Summary on 04-19-2025 Emergency Department Summary Normal [facility] Eosinophil percentageOrdered By: Casper Iniguez on 04-19-2025 Eosinophils/100 WBC (Bld) 2.7 % 0-5 [facility] Erythrocyte distribution wid th ratioOrdered By: Casper Iniguez on 04-19-2025 Erythrocyte distribution width (RBC) [Ratio] 17.2 % High 11.6-14.6 [facility] Erythrocyte distribution wid th standard deviationOrdered By: Casper Iniguez on 04-19-2025 Erythrocyte distribution width (RBC) [Ratio] 54.8 fl High 35.1-43.9 [facility] Glomerular filtration rate ( GFR) estimation/1.73 sq m using serum, plasma, or whole bOrdered By: Casper Iniguez on 04-19-2025 GFR/1.73 sq M.predicted among non-blacks MDRD (S/P/Bld) [Vol rate/Area] 39 mL/min/{1.73_m2} Low >60 [facility] deOrdered By: Valdez Olivo on 04-19-2025 Glucose [Mass/Vol] 123 mg/dL High 74-106 [facility] H AND P Exam - Hospitaliston 04-19-2025 H&P Exam - Hospitalist Normal [facility] Hematocrit Auto (Bld) [Volum e fraction]Ordered By: Casper Iniguez on 04-19-2025 Hematocrit (Bld) [Volume fraction] 30.6 % Low 40-54 [facility] Hemoglobin measurementOrdere d By: Casper Iniguez on 04-19-2025 Hemoglobin (Bld) [Mass/Vol] 9.6 g/dL Low 13.0-16.5 [facility] Immature granulocytes/100 WB C Auto (Bld)Ordered By: Casper Iniguez on 04-19-2025 Immature granulocytes/100 WBC (Bld) 1.600 % High 0.0-0.9 [facility] L501.4021on 04-19-2025 Trop T High Sen 99 ng/L Invalid Interpretation Code <=22 [facility] Comment on above: Result Comment: Crit ical Result(s) Called at 922: by: RENAE ALICEA. ??Results read back by same. Performed By: #### L 100.0100, L501.4021, L500.4050 ####[facility] [address] [place], [address] MCV (mean corpuscular volume ) determinationOrdered By: Casper Hira on 04-19-2025 MCV (RBC) [Entitic vol] 87.2 fL 80-94 [facility] Magnesiumon 04-19-2025 Magnesium [Mass/Vol] 2.1 mg/dL Normal 1.5-2.2 [facility] Comment on above: Performed By: #### L 501.5200, L501.2300, L503.7505 ####[facility] [address] [place], [place], [address] Magnesium measurement (mass/ volume)Ordered By: Kwaku Narayanan on 04-19-2025 Magnesium (Unsp spec) [Mass/Vol] 2.1 mg/dL 1.5-2.2 [facility] Mean corpuscular hemoglobin (MCH) determinationOrdered By: Casper Hira on 04-19-2025 MCH (RBC) [Entitic mass] 27.4 pg 27.0-32.0 [facility] Monocyte percentageOrdered B y: Casper Hira on 04-19-2025 Monocytes/100 WBC (Bld) 11.3 % High 0-10 [facility] Natriuretic peptide.B prohor girish N-Terminal [Mass/volume] in Serum or PlasmaOrdered By: Kwaku Narayanan on 04-19-2025 Natriuretic peptide.B prohormone N-Terminal [Mass/Vol] 3388 pg/mL High <1800 [facility] Neutrophil percentageOrdered By: Casper Hira on 04-19-2025 Neutrophils/100 WBC (Bld) 75.0 % High 47-70 [facility] No Panel InformationOrdered By: Casper Hira on 04-19-2025 30 U/L <38 [facility] Phosphoruson 04-19-2025 Phosphate [Mass/Vol] 3.9 mg/dL Normal 2.7-4.5 [facility] Comment on above: Performed By: #### L 501.5200, L501.2300, L503.7505 ####[facility] [address] [place], [place], [id number] Platelet countOrdered By: Akin Iniguez on 04-19-2025 Platelets (Bld) [#/Vol] 204 10*3/uL 150-450 [facility] Potassium measurement (mass/ volume)Ordered By: Casper Iniguez on 04-19-2025 Potassium (Unsp spec) [Mass/Vol] 3.5 mmol/L 3.3-5.1 [facility] Pro- Brain NATRIURETIC PEPTI Adrienne 04-19-2025 Natriuretic peptide B (Bld) [Mass/Vol] 3388 pg/mL High <=1800 [facility] Comment on above: Result Comment: Hear t Failure Unlikely: < 300 pg/mLHeart Failure Likely< 50 Years: > 450 pg/mL50-75 Years: > 900 pg/mL>75 Years: > 1800 pg/mL Performed By: #### L 501.5200, L501.2300, L503.7505 ####[facility] [address] [place], [place], [address] RBC Auto (Bld) [#/Vol]Ordere d By: Casper Iniguez on 04-19-2025 RBC (Bld) [#/Vol] 3.51 10*6/uL Low 4.6-6.2 [facility] Serum creatinine measurement (mass/volume)Ordered By: Casper Iniguez on 04-19-2025 Creatinine [Mass/Vol] 1.74 mg/dL High 0.70-1.20 [facility] Serum globulin measurementOr dered By: Casper Iniguez on 04-19-2025 Globulin (S) [Mass/Vol] 3.4 g/dL 2.2-4.2 [facility] Serum glucose measurement (m ass/volume)Ordered By: Casper Iniguez on 04-19-2025 Glucose [Mass/Vol] 132 mg/dL High 70-99 [facility] Serum or plasma alanine ortiz otransferase (ALT) measurementOrdered By: Casper Iniguez on 04-19-2025 ALT [Catalytic activity/Vol] 27 U/L <47 [facility] Serum or plasma albumin kingsley urement (mass/volume)Ordered By: Casper Iniguez on 04-19-2025 Albumin [Mass/Vol] 3.4 g/dL 3.4-4.8 [facility] Serum or plasma albumin/glob ulin mass ratioOrdered By: Casper Iniguez on 04-19-2025 Albumin/Globulin [Mass ratio] 1.0 {ratio} 0.9-2.4 [facility] Serum or plasma alkaline roosevelt sphatase measurementOrdered By: Casper Iniguez on 04-19-2025 ALP [Catalytic activity/Vol] 79 U/L 40-129 [facility] Serum or plasma calcium kingsley urement (mass/volume)Ordered By: Casper Iniguez on 04-19-2025 Calcium [Mass/Vol] 9.4 mg/dL 7.6-11.0 [facility] Serum or plasma urea nitroge n measurement (mass/volume)Ordered By: Casper Iniguez on 04-19-2025 Urea nitrogen [Mass/Vol] 40 mg/dL High 4-19 [facility] Sodium levelOrdered By: Rema Iniguez on 04-19-2025 Sodium [Moles/Vol] 136 mmol/L 133-145 [facility] Total proteinOrdered By: Shira Iniguez on 04-19-2025 Protein [Mass/Vol] 6.8 g/dL 5.9-8.4 [facility] Troponin T HS 2 HRon 025 Trop T High Sen 95 ng/L Invalid Interpretation Code <=22 [facility] Comment on above: Result Comment: Crit ical Result(s) Called at 1126: by: RENAE GIRON. ??Results read back by same. Performed By: #### L 499.0042 ####[facility] [address] [place], [address] Troponin T HS 4 HRon 025 Trop T High Sen 93 ng/L Invalid Interpretation Code <=22 [facility] Comment on above: Result Comment: Crit ical Result(s) Called at 1326: by: RENAE GIRON. ??Results read back by same. Performed By: #### L 499.0043 ####[facility] [address] [place], [place], [address] Troponin T.cardiac [Mass/vol ume] in Serum or Plasma by High sensitivity methodOrdered By: Casper Iniguez on 04-19-2025 Troponin T.cardiac High sensitivity method [Mass/Vol] 93 ng/L High <22 [facility] Troponin T.cardiac High sensitivity method [Mass/Vol] 95 ng/L High <22 [facility] Troponin T.cardiac High sensitivity method [Mass/Vol] 99 ng/L High <22 [facility] White blood cell (WBC) count Ordered By: Casper Iniguez on 04-19-2025 WBC (Bld) [#/Vol] 10.7 10*3/uL 4.4-11.0 [facility] Absolute lymphocyte countOrd ered By: Valdez Olivo on 04-18-2025 Lymphocytes Auto (Unsp spec) [#/Vol] 0.61 10*3/uL Low 0.83-4.51 [facility] Anion gap in Serum or Plasma Ordered By: Valdez Olivo on 04-18-2025 Anion gap [Moles/Vol] 12 mmol/L 5-15 [facility] Automated lymphocyte count a s percentage of total leukocytesOrdered By: Valdez Olivo on 04-18-2025 Lymphocytes/100 WBC Auto (Unsp spec) 6.2 % Low 19-41 [facility] BUN/creatinine ratioOrdered By: Valdez Olivo on 04-18-2025 Urea nitrogen/Creatinine [Mass ratio] 25.1 mg/mg High 10- [facility] Basic Metabolic Profile (BMP )on 04-18-2025 BUN/CRE 25.1 RATIO High - [facility] Comment on above: Performed By: #### L 100.0100, L500.2500 ####[facility] [address] [place], [address] Calcium [Mass/Vol] 9.1 mg/dL Normal 7.6-11.0 [facility] Comment on above: Performed By: #### L 100.0100, L500.2500 ####[facility] [address] [place], [address] Chloride [Moles/Vol] 89 mmol/L Low 98-108 [facility] Comment on above: Performed By: #### L 100.0100, L500.2500 ####[facility] [address] [place], [address] CO2 [Moles/Vol] 36.0 mmol/L High 21.0-32.0 [facility] Comment on above: Performed By: #### L 100.0100, L500.2500 ####[facility] [address] [place], [address] Creatinine [Mass/Vol] 1.73 mg/dL High 0.70-1.20 [facility] Comment on above: Performed By: #### L 100.0100, L500.2500 ####[facility] [address] [place], [address] ECRCL 30.73 ml/min Low 50-250 [facility] Comment on above: Performed By: #### L 100.0100, L500.2500 ####[facility] [address] [place], [address] GAP 12 Normal 5-15 [facility] Comment on above: Performed By: #### L 100.0100, L500.2500 ####[facility] [address] [place], [address] GFR/1.73 sq M.predicted among non-blacks MDRD (S/P/Bld) [Vol rate/Area] 39 mL/min/{1.73_m2} Low >60 [facility] Comment on above: Result Comment: mL/m in/1.73m2 CKD-EPI Creatinine Equation (2020) Performed By: #### L 100.0100, L500.2500 ####[facility] [address] [place], [address] Glucose [Mass/Vol] 104 mg/dL High 70-99 [facility] Comment on above: Performed By: #### L 100.0100, L500.2500 ####[facility] [address] [place], [address] Potassium [Moles/Vol] 3.4 mmol/L Normal 3.3-5.1 [facility] Comment on above: Performed By: #### L 100.0100, L500.2500 ####[facility] [address] [place], [address] Sodium [Moles/Vol] 137 mmol/L Normal 133-145 [facility] Comment on above: Performed By: #### L 100.0100, L500.2500 ####[facility] [address] [place], [address] Urea nitrogen [Mass/Vol] 43 mg/dL High 4-19 [facility] Comment on above: Performed By: #### L 100.0100, L500.2500 ####[facility] [address] [place], [address] BUN Normal -19 [facility] Comment on above: Result Comment: Canc elled via OM: Order cancelled - Patient discharged Performed By: #### L 100.0100, L500.2500 ####[facility] [address] [place], [address] BUN/CRE Normal 10-20 [facility] Comment on above: Result Comment: Canc elled via OM: Order cancelled - Patient discharged Performed By: #### L 100.0100, L500.2500 ####[facility] [address] [place], [address] Calcium Normal 7.6-11.0 [facility] Comment on above: Result Comment: Canc elled via OM: Order cancelled - Patient discharged Performed By: #### L 100.0100, L500.2500 ####[facility] [address] [place], [address] CL Normal 98-108 [facility] Comment on above: Result Comment: Canc elled via OM: Order cancelled - Patient discharged Performed By: #### L 100.0100, L500.2500 ####[facility] [address] [place], [address] CO2 Normal 21.0-32.0 [facility] Comment on above: Result Comment: Canc elled via OM: Order cancelled - Patient discharged Performed By: #### L 100.0100, L500.2500 ####[facility] [address], [address] CREAT,SERUM Normal 0.70-1.20 [facility] Comment on above: Result Comment: Canc elled via OM: Order cancelled - Patient discharged Performed By: #### L 100.0100, L500.2500 ####[facility] [address] [place], [address] eGFR Normal >60 [facility] Comment on above: Result Comment: Canc elled via OM: Order cancelled - Patient discharged Performed By: #### L 100.0100, L500.2500 ####[facility] [address] [place], [address] GAP Normal 5-15 [facility] Comment on above: Result Comment: Canc elled via OM: Order cancelled - Patient discharged Performed By: #### L 100.0100, L500.2500 ####[facility] [address] [place], [address] GLU Normal 70-99 [facility] Comment on above: Result Comment: Canc elled via OM: Order cancelled - Patient discharged Performed By: #### L 100.0100, L500.2500 ####[facility] [address] [place], [address] Potassium Normal 3.3-5.1 [facility] Comment on above: Result Comment: Canc elled via OM: Order cancelled - Patient discharged Performed By: #### L 100.0100, L500.2500 ####[facility] [address] [place], [address] Basic Metabolic Profile (BMP) Normal 133-145 [facility] Comment on above: Result Comment: Canc elled via OM: Order cancelled - Patient discharged Performed By: #### L 100.0100, L500.2500 ####[facility] [address] [place], [address] Basophil percentageOrdered B y: Valdez Geovani on 04-18-2025 Basophils/100 WBC (Bld) 0.2 % 0-1 [facility] Bedside Glucoseon 04-18-2025 F[place] GLU 217 mg/dL High 74-106 [facility] Comment on above: Result Comment: KODY GEMENT OF PATIENT CARE PER NURSING PROTOCOL Performed By: #### L 501.080 ####[facility] [address] [place], [address] FINGERSTICK GLU 161 mg/dL High 74-106 [facility] Comment on above: Result Comment: KODY GEMENT OF PATIENT CARE PER NURSING PROTOCOL Performed By: #### L 501.080 ####[facility] [address] [place], [address] FINGERSTICK GLU 211 mg/dL High 74-106 [facility] Comment on above: Result Comment: KODY GEMENT OF PATIENT CARE PER NURSING PROTOCOL Performed By: #### L 501.080 ####[facility] [address] [place], [address] FINGERSTICK GLU 99 mg/dL Normal 74-106 [facility] Comment on above: Result Comment: KODY STRONG OF PATIENT CARE PER NURSING PROTOCOL Performed By: #### L 501.080 ####[facility] [address] [place], [address] CBC W/Diff, Automatedon 08-3 0-2025 Absolute Lymph 0.61 X10 3/uL Low 0.83-4.51 [facility] Comment on above: Performed By: #### L 100.0100, L500.2500 ####[facility] [address] [place], [address] Absolute Neut 7.7 X10 3/uL Normal 2.0-7.7 [facility] Comment on above: Performed By: #### L 100.0100, L500.2500 ####[facility] [address] [place], [address] Basophils/100 WBC (Bld) 0.2 % Normal 0-1 [facility] Comment on above: Performed By: #### L 100.0100, L500.2500 ####[facility] [address] [place], [address] Eosinophils/100 WBC (Bld) 3.3 % Normal 0-5 [facility] Comment on above: Performed By: #### L 100.0100, L500.2500 ####[facility] [address] [place], [address] Erythrocyte distribution width (RBC) [Ratio] 17.0 % High 11.6-14.6 [facility] Comment on above: Performed By: #### L 100.0100, L500.2500 ####[facility] [address] [place], [address] Hematocrit (Bld) [Volume fraction] 28.6 % Low 40-54 [facility] Comment on above: Performed By: #### L 100.0100, L500.2500 ####[facility] [address] [place], [address] Hemoglobin (Bld) [Mass/Vol] 9.0 g/dL Low 13.0-16.5 [facility] Comment on above: Performed By: #### L 100.0100, L500.2500 ####[facility] [address] [place], [address] IG% 1.400 High 0.0-0.9 [facility] Comment on above: Result Comment: IG% - Immature Granulocytes (promyelocytes, myelocytes andmetamyelocytes) > 1% indicates that a LEFT SHIFT is Present. Performed By: #### L 100.0100, L500.2500 ####[facility] [address] [place], [address] Lymphocytes/100 WBC (Bld) 6.2 % Low 19-41 [facility] Comment on above: Performed By: #### L 100.0100, L500.2500 ####[facility] [address] [place], [address] MCH (RBC) [Entitic mass] 27.0 pg Normal 27.0-32.0 [facility] Comment on above: Performed By: #### L 100.0100, L500.2500 ####[facility] [address] [place], [address] MCHC (RBC) [Mass/Vol] 31.5 g/dL Low 32-36 [facility] Comment on above: Performed By: #### L 100.0100, L500.2500 ####[facility] [address] [place], [address] MCV (RBC) [Entitic vol] 85.9 fL Normal 80-94 [facility] Comment on above: Performed By: #### L 100.0100, L500.2500 ####[facility] [address], [address] Monocytes/100 WBC (Bld) 11.2 % High 0-10 [facility] Comment on above: Performed By: #### L 100.0100, L500.2500 ####[facility] [address] [place], [address] Neutrophils/100 WBC (Bld) 77.7 % High 47-70 [facility] Comment on above: Performed By: #### L 100.0100, L500.2500 ####[facility] [address] [place], [address] Nucleated RBC (Bld) [#/Vol] 0 10*3/uL Normal 0-5 [facility] Comment on above: Performed By: #### L 100.0100, L500.2500 ####[facility] [address] [place], [address] Platelet mean volume (Bld) [Entitic vol] 10.5 fL Normal 6.2-12.0 [facility] Comment on above: Performed By: #### L 100.0100, L500.2500 ####[facility] [address] [place], [address] Platelets (Bld) [#/Vol] 186 10*3/uL Normal 150-450 [facility] Comment on above: Performed By: #### L 100.0100, L500.2500 ####[facility] [address] [place], [address] RBC (Bld) [#/Vol] 3.33 10*6/uL Low 4.6-6.2 [facility] Comment on above: Performed By: #### L 100.0100, L500.2500 ####[facility] [address] [place], [address] RDW SD 52.7 fl High 35.1-43.9 [facility] Comment on above: Performed By: #### L 100.0100, L500.2500 ####[facility] [address] [place], [address] WBC (Bld) [#/Vol] 9.9 10*3/uL Normal 4.4-11.0 [facility] Comment on above: Performed By: #### L 100.0100, L500.2500 ####[facility] [address] [place], [address] Absolute Neut Normal 2.0-7.7 [facility] Comment on above: Result Comment: Canc elled via OM: Order cancelled - Patient discharged Performed By: #### L 100.0100, L500.2500 ####[facility] [address] [place], [address] HCT Normal 40-54 [facility] Comment on above: Result Comment: Canc elled via OM: Order cancelled - Patient discharged Performed By: #### L 100.0100, L500.2500 ####[facility] [address] [place], [address] HGB Normal 13.0-16.5 [facility] Comment on above: Result Comment: Canc elled via OM: Order cancelled - Patient discharged Performed By: #### L 100.0100, L500.2500 ####[facility] [address] [place], [address] MCH Normal 27.0-32.0 [facility] Comment on above: Result Comment: Canc elled via OM: Order cancelled - Patient discharged Performed By: #### L 100.0100, L500.2500 ####[facility] [address] [place], [address] MCHC Normal 32-36 [facility] Comment on above: Result Comment: Canc elled via OM: Order cancelled - Patient discharged Performed By: #### L 100.0100, L500.2500 ####[facility] [address] [place], [address] MCV Normal 80-94 [facility] Comment on above: Result Comment: Canc elled via OM: Order cancelled - Patient discharged Performed By: #### L 100.0100, L500.2500 ####[facility] [address] [place], [address] NEUT% Normal 47-70 [facility] Comment on above: Result Comment: Canc elled via OM: Order cancelled - Patient discharged Performed By: #### L 100.0100, L500.2500 ####[facility] [address] [place], [address] PLT Normal 150-450 [facility] Comment on above: Result Comment: Canc elled via OM: Order cancelled - Patient discharged Performed By: #### L 100.0100, L500.2500 ####[facility] [address] [place], [address] RBC Normal 4.6-6.2 [facility] Comment on above: Result Comment: Canc elled via OM: Order cancelled - Patient discharged Performed By: #### L 100.0100, L500.2500 ####[facility] [address] [place], [address] RDW CV Normal 11.6-14.6 [facility] Comment on above: Result Comment: Canc elled via OM: Order cancelled - Patient discharged Performed By: #### L 100.0100, L500.2500 ####[facility] [address] [place], [address] RDW SD Normal 35.1-43.9 [facility] Comment on above: Result Comment: Canc elled via OM: Order cancelled - Patient discharged Performed By: #### L 100.0100, L500.2500 ####[facility] [address] [place], [address] WBC Normal 4.4-11.0 [facility] Comment on above: Result Comment: Canc elled via OM: Order cancelled - Patient discharged Performed By: #### L 100.0100, L500.2500 ####[facility] [address] [place], [address] Carbon dioxide, total [Moles /volume] in Central venous bloodOrdered By: Valdez Olivo on 04-18-2025 CO2 [Moles/Vol] 36.0 mmol/L High 21.0-32.0 [facility] Chloride assayOrdered By: Aiden Olivo on 04-18-2025 Chloride [Moles/Vol] 89 mmol/L Low 98-108 [facility] Eosinophil percentageOrdered By: Valdez Olivo on 04-18-2025 Eosinophils/100 WBC (Bld) 3.3 % 0-5 [facility] Erythrocyte distribution wid th ratioOrdered By: Valdez Olivo on 04-18-2025 Erythrocyte distribution width (RBC) [Ratio] 17.0 % High 11.6-14.6 [facility] Erythrocyte distribution wid th standard deviationOrdered By: Valdez Olivo on 04-18-2025 Erythrocyte distribution width (RBC) [Ratio] 52.7 fl High 35.1-43.9 [facility] Glomerular filtration rate ( GFR) estimation/1.73 sq m using serum, plasma, or whole bOrdered By: Valdez Olivo on 04-18-2025 GFR/1.73 sq M.predicted among non-blacks MDRD (S/P/Bld) [Vol rate/Area] 39 mL/min/{1.73_m2} Low >60 [facility] Hematocrit Auto (Bld) [Volum e fraction]Ordered By: Valdez Olivo on 04-18-2025 Hematocrit (Bld) [Volume fraction] 28.6 % Low 40-54 [facility] Hemoglobin measurementOrdere d By: Valdez Olivo on 04-18-2025 Hemoglobin (Bld) [Mass/Vol] 9.0 g/dL Low 13.0-16.5 [facility] Immature granulocytes/100 WB C Auto (Bld)Ordered By: Valdez Olivo on 04-18-2025 Immature granulocytes/100 WBC (Bld) 1.400 % High 0.0-0.9 [facility] MCV (mean corpuscular volume ) determinationOrdered By: Valdez Olivo on 04-18-2025 MCV (RBC) [Entitic vol] 85.9 fL 80-94 [facility] Mean corpuscular hemoglobin (MCH) determinationOrdered By: Valdez Olivo on 04-18-2025 MCH (RBC) [Entitic mass] 27.0 pg 27.0-32.0 [facility] Monocyte percentageOrdered B y: Valdez Olivo on 04-18-2025 Monocytes/100 WBC (Bld) 11.2 % High 0-10 [facility] Neutrophil percentageOrdered By: Valdez Olivo on 04-18-2025 Neutrophils/100 WBC (Bld) 77.7 % High 47-70 [facility] Platelet countOrdered By: Aiden Olivo on 04-18-2025 Platelets (Bld) [#/Vol] 186 10*3/uL 150-450 [facility] Potassium measurement (mass/ volume)Ordered By: Valdez Olivo on 04-18-2025 Potassium (Unsp spec) [Mass/Vol] 3.4 mmol/L 3.3-5.1 [facility] RBC Auto (Bld) [#/Vol]Ordere d By: Valdez Olivo on 04-18-2025 RBC (Bld) [#/Vol] 3.33 10*6/uL Low 4.6-6.2 [facility] Serum creatinine measurement (mass/volume)Ordered By: Valdez Olivo on 04-18-2025 Creatinine [Mass/Vol] 1.73 mg/dL High 0.70-1.20 [facility] Serum glucose measurement (m ass/volume)Ordered By: Valdez Olivo on 04-18-2025 Glucose [Mass/Vol] 104 mg/dL High 70-99 [facility] Serum or plasma calcium kingsley urement (mass/volume)Ordered By: Valdez Olivo on 04-18-2025 Calcium [Mass/Vol] 9.1 mg/dL 7.6-11.0 [facility] Serum or plasma urea nitroge n measurement (mass/volume)Ordered By: Valdez Olivo on 04-18-2025 Urea nitrogen [Mass/Vol] 43 mg/dL High 4-19 [facility] Sodium levelOrdered By: Valdez Olivo on 04-18-2025 Sodium [Moles/Vol] 137 mmol/L 133-145 [facility] White blood cell (WBC) count Ordered By: Valdez Olivo on 04-18-2025 WBC (Bld) [#/Vol] 9.9 10*3/uL 4.4-11.0 [facility] .Auto Diffon 04-17-2025 Basophil, Absolute 0.0 10 3/mcL Normal 0.0-0.3 [facility] Comment on above: Performed By: #### P ROBF, BFPR, PHBF, BFCT, GLUBF, LDBF #### [address] [address] Basophils/100 WBC (Bld) 0.6 % Normal 0.0-2.5 [facility] Comment on above: Performed By: #### P ROBF, BFPR, PHBF, BFCT, GLUBF, LDBF #### [address] [address] Eosinophil, Absolute 0.4 10 3/mcL Normal 0.0-0.7 [facility] Comment on above: Performed By: #### P ROBF, BFPR, PHBF, BFCT, GLUBF, LDBF #### [address] [address] Eosinophils/100 WBC (Bld) 4.2 % Normal 0.0-6.0 [facility] Comment on above: Performed By: #### P ROBF, BFPR, PHBF, BFCT, GLUBF, LDBF #### [address] [address] Lymphocyte, Absolute 0.5 10 3/mcL Low 0.9-4.3 [facility] Comment on above: Performed By: #### P ROBF, BFPR, PHBF, BFCT, GLUBF, LDBF #### [address] [address] Lymphocytes/100 WBC (Bld) 5.5 % Low 20.0-40.0 [facility] Comment on above: Performed By: #### P ROBF, BFPR, PHBF, BFCT, GLUBF, LDBF #### [address] [address] Monocyte, Absolute 0.8 10 3/mcL Normal 0.1-1.4 [facility] Comment on above: Performed By: #### P ROBF, BFPR, PHBF, BFCT, GLUBF, LDBF #### [address] [address] Monocytes/100 WBC (Bld) 9.6 % Normal 2.0-13.0 [facility] Comment on above: Performed By: #### P ROBF, BFPR, PHBF, BFCT, GLUBF, LDBF #### [place] [id number] Neutrophils/100 WBC (Bld) 80.1 % High 50.0-75.0 [facility] Comment on above: Performed By: #### P ROBF, BFPR, PHBF, BFCT, GLUBF, LDBF #### [place] [id number] .GFRon 04-17-2025 Estimated Glomerular Filtration Rate 43 ml/min/1.73sqm Normal [facility] Comment on above: Result [...] ROBF, BFPR, PHBF, BFCT, GLUBF, LDBF #### [address] [address] .NEUABSon 04-17-2025 Neutrophil, Absolute 7.1 10 3/mcL Normal 2.3-8.1 [facility] Comment on above: Performed By: #### P ROBF, BFPR, PHBF, BFCT, GLUBF, LDBF #### [address] [address] APTTon 04-17-2025 aPTT Coag (Bld) [Time] 73.1 s High 25.0-35.0 [facility] Comment on above: Result Comment: For Heparin anticoagulation therapy, the recommended therapeutic range is: 54-77 seconds (APTT Correlation with Anti-Xa therapeutic range of 0.3-0.7 units/ml). PLEASE REFERENCE THE PHARMACY PROTOCOL FOR DOSING. Performed By: #### P ROBF, BFPR, PHBF, BFCT, GLUBF, LDBF #### [place] [address] aPTT Coag (Bld) [Time] 68.5 s High 25.0-35.0 [facility] Comment on above: Result Comment: For Heparin anticoagulation therapy, the recommended therapeutic range is: 54-77 seconds (APTT Correlation with Anti-Xa therapeutic range of 0.3-0.7 units/ml). PLEASE REFERENCE THE PHARMACY PROTOCOL FOR DOSING. Performed By: #### P ROBF, BFPR, PHBF, BFCT, GLUBF, LDBF #### [place] [address] BFPRon 04-17-2025 Body Fluid Path Review Normal [facility] Comment on above: Order Comment: [...] ROBF, BFPR, PHBF, BFCT, GLUBF, LDBF #### [address] [address] Bedside Glucoseon 04-17-2025 FINGERSTICK GLU 191 mg/dL High 74-106 [facility] Comment on above: Result Comment: KODY IRAISENT OF PATIENT CARE PER NURSING PROTOCOL Performed By: #### L 501.080 ####[facility] [address] [place], [address] CBCon 04-17-2025 Erythrocyte distribution width (RBC) [Ratio] 18.3 % High 11.5-15.5 [facility] Comment on above: Performed By: #### P ROBF, BFPR, PHBF, BFCT, GLUBF, LDBF #### [place] [id number] Hematocrit (Bld) [Volume fraction] 27.4 % Low 40.0-52.0 [facility] Comment on above: Performed By: #### P ROBF, BFPR, PHBF, BFCT, GLUBF, LDBF #### [place] [address] Hgb 9.0 G/dL Low 13.0-17.5 [facility] Comment on above: Performed By: #### P ROBF, BFPR, PHBF, BFCT, GLUBF, LDBF #### [place] [address] MCH (RBC) [Entitic mass] 27.3 pg Normal 27.0-33.0 [facility] Comment on above: Performed By: #### P ROBF, BFPR, PHBF, BFCT, GLUBF, LDBF #### [place] [id number] MCHC 32.7 G/dL Normal 32.0-36.0 [facility] Comment on above: Performed By: #### P ROBF, BFPR, PHBF, BFCT, GLUBF, LDBF #### [place] [address] MCV (RBC) [Entitic vol] 83.4 fL Normal 81.0-100.0 [facility] Comment on above: Performed By: #### P ROBF, BFPR, PHBF, BFCT, GLUBF, LDBF #### [place] [id number] Platelet 163 10 3/mcL Normal 150-450 [facility] Comment on above: Performed By: #### P ROBF, BFPR, PHBF, BFCT, GLUBF, LDBF #### [place] [address] Platelet mean volume (Bld) [Entitic vol] 8.4 fL Normal 6.4-10.5 [facility] Comment on above: Performed By: #### P ROBF, BFPR, PHBF, BFCT, GLUBF, LDBF #### [place] [address] RBC 3.29 10 6/mcL Low 4.50-6.00 [facility] Comment on above: Performed By: #### P ROBF, BFPR, PHBF, BFCT, GLUBF, LDBF #### [place] [address] WBC 8.8 10 3/mcL Normal 4.5-10.8 [facility] Comment on above: Performed By: #### P ROBF, BFPR, PHBF, BFCT, GLUBF, LDBF #### [place] [address] CMPon 04-17-2025 Albumin Level 2.7 G/dL Low 3.2-4.8 [facility] Comment on above: Order Comment: vrb- called critical CO2 to RN Mando Man 04/17/2025 06:09:20 EDT SAS Performed By: #### P ROBF, BFPR, PHBF, BFCT, GLUBF, LDBF #### [place] [address] Albumin/Globulin [Mass ratio] 0.8 {ratio} Low 0.9-1.6 [facility] Comment on above: Order Comment: vrb- called critical CO2 to RN Mando [place] 04/17/2025 06:09:20 EDT SAS Performed By: #### P ROBF, BFPR, PHBF, BFCT, GLUBF, LDBF #### [place] [address] ALP [Catalytic activity/Vol] 65 U/L Normal 38-126 [facility] Comment on above: Order Comment: vrb- called critical CO2 to RN Mando Man 04/17/2025 06:09:20 EDT SAS Performed By: #### P ROBF, BFPR, PHBF, BFCT, GLUBF, LDBF #### [address] [address] ALT [Catalytic activity/Vol] 21 U/L Normal 12-55 [facility] Comment on above: Order Comment: vrb- called critical CO2 to KHURRAM Man 04/17/2025 06:09:20 EDT SAS Performed By: #### P ROBF, BFPR, PHBF, BFCT, GLUBF, LDBF #### [address] [address] AST [Catalytic activity/Vol] 16 U/L Normal 8-34 [facility] Comment on above: Order Comment: vrb- called critical CO2 to KHURRAM Man 04/17/2025 06:09:20 EDT SAS Performed By: #### P ROBF, BFPR, PHBF, BFCT, GLUBF, LDBF #### [address] [address] Bili Total 0.40 mg/dL Normal 0.20-1.20 [facility] Comment on above: Order Comment: vrb- called critical CO2 to KHURRAM Man 04/17/2025 06:09:20 EDT SAS Result Comment: Use of this assay is not recommended for patients undergoing treatment with eltrombopag due to the potential for falsely elevated results. Performed By: #### P ROBF, BFPR, PHBF, BFCT, GLUBF, LDBF #### [address] [address] BUN/Creatinine Ratio 25.3 ratio High 10.0-22.0 [facility] Comment on above: Order Comment: vrb- called critical CO2 to KHURRAM Man 04/17/2025 06:09:20 EDT SAS Performed By: #### P ROBF, BFPR, PHBF, BFCT, GLUBF, LDBF #### [address] [address] Calcium [Mass/Vol] 9.4 mg/dL Normal 8.7-10.4 [facility] Comment on above: Order Comment: vrb- called critical CO2 to RN Mando Man 04/17/2025 06:09:20 EDT SAS Performed By: #### P ROBF, BFPR, PHBF, BFCT, GLUBF, LDBF #### [address] [address] Chloride [Moles/Vol] 88 mmol/L Low 98-110 [facility] Comment on above: Order Comment: vrb- called critical CO2 to RN Mando Man 04/17/2025 06:09:20 EDT SAS Performed By: #### P ROBF, BFPR, PHBF, BFCT, GLUBF, LDBF #### [address] [address] Creatinine [Mass/Vol] 1.62 mg/dL High 0.60-1.40 [facility] Comment on above: Order Comment: vrb- called critical CO2 to RN Mando Man 04/17/2025 06:09:20 EDT SAS Result Comment: Test ing performed on Rundown App analyzer using enzymatic creatinine methodology. Performed By: #### P ROBF, BFPR, PHBF, BFCT, GLUBF, LDBF #### [address] [address] Globulin 3.5 G/dL Normal 2.5-4.2 [facility] Comment on above: Order Comment: vrb- called critical CO2 to RN Mando Man 04/17/2025 06:09:20 EDT SAS Performed By: #### P ROBF, BFPR, PHBF, BFCT, GLUBF, LDBF #### [address] [address] Glucose [Mass/Vol] 174 mg/dL High 82-115 [facility] Comment on above: Order Comment: vrb- called critical CO2 to RN Mando Man 04/17/2025 06:09:20 EDT SAS Performed By: #### P ROBF, BFPR, PHBF, BFCT, GLUBF, LDBF #### [address] [address] Potassium [Moles/Vol] 3.7 mmol/L Normal 3.5-5.0 [facility] Comment on above: Order Comment: vrb- called critical CO2 to RN Mando Man 04/17/2025 06:09:20 EDT SAS Performed By: #### P ROBF, BFPR, PHBF, BFCT, GLUBF, LDBF #### [address] [address] Sodium [Moles/Vol] 137 mmol/L Normal 136-145 [facility] Comment on above: Order Comment: vrb- called critical CO2 to RN Mando Man 04/17/2025 06:09:20 EDT SAS Performed By: #### P ROBF, BFPR, PHBF, BFCT, GLUBF, LDBF #### [place] [address] Total Protein 6.2 G/dL Normal 5.7-8.2 [facility] Comment on above: Order Comment: vrb- called critical CO2 to RN Mando Man 04/17/2025 06:09:20 EDT SAS Performed By: #### P ROBF, BFPR, PHBF, BFCT, GLUBF, LDBF #### [place] [address] Urea nitrogen [Mass/Vol] 41.0 mg/dL High 8.0-22.0 [facility] Comment on above: Order Comment: vrb- called critical CO2 to KHURRAM Man 04/17/2025 06:09:20 EDT SAS Performed By: #### P ROBF, BFPR, PHBF, BFCT, GLUBF, LDBF #### [address] [address] CO2 [Moles/Vol] mmol/L Critically abnormal 22-32 [facility] Comment on above: Order Comment: vrb- called critical CO2 to RN Mando Man 04/17/2025 06:09:20 EDT SAS Performed By: #### P ROBF, BFPR, PHBF, BFCT, GLUBF, LDBF #### [address] [address] Electrolyte Balance See Comment Normal 4.0-15.0 [facility] Comment on above: Order Comment: vrb- called critical CO2 to KHURRAM Man 04/17/2025 06:09:20 EDT SAS Result Comment: Unab le to calculate this test result accurately. Results used to calculate this test are outside the reportable range. Performed By: #### P ROBF, BFPR, PHBF, BFCT, GLUBF, LDBF #### [address] [address] FT4on 04-17-2025 Free T4 [Mass/Vol] 0.88 ng/dL Low 0.89-1.76 [facility] Comment on above: Order Comment: Order ed by Discern Result Comment: No te - New Reference Range in effect 20 Performed By: #### P ROBF, BFPR, PHBF, BFCT, GLUBF, LDBF #### [place] [address] LABORATORYOrdered By: SYSTEM SYSTEM on 04-17-2025 aPTT [...] above: Interpretive Data: T esting performed on Rundown App analyzer using enzymatic creatinine methodology. Eosinophils (Bld) [...] 8.4 fL Normal 6.4 - 10.5 fL AH Workflow SS Platelets (Bld) [#/Vol] 163 103/mcL [...] Glucose Testing Reason Routine (04/17/25 11:08 AM) [facility] Work Phone: Glucose [Mass/Vol] 276 mg/dL High 82 - 115 mg/dL [facility] Work Phone: Blood Glucose Testing Reason Routine (04/17/25 7:57 AM) [facility] Work Phone: Glucose [Mass/Vol] 171 mg/dL High 82 - 115 mg/dL [facility] Work Phone: LABORATORYOrdered By: Lisa Mandel [...] 04-17-2025 Magnesium [Mass/Vol] 1.8 mg/dL Normal 1.6-2.4 [facility] Comment on above: Performed By: #### P ROBF, BFPR, PHBF, BFCT, GLUBF, LDBF #### [place] [address] Non-Advertiser Cytology Reporton Non-Advertiser Cytology Report . Pathology Reports Accession: Collected Date/Time: Received Date/Time: Pathologist: [id number] 04/15/2025 10:30 EDT 04/16/2025 08:56 EDT MÓNICA VIEIRA MD Non-Advertiser Cytology Report CLINICAL INFORMATION: Pleural effusion DIAGNOSTIC CATEGORY: NEGATIVE FOR MALIGNANCY. SPECIMEN: Right pleural fluid GROSS DESCRIPTION: # of Blocks: 1 # of Monolayers: 1 Volume (ml) 950 Color: fresh cloudy red/orange fluid Verified by Pathology Report verified by [facility] Screened by: ANMOL DW Electronically signed by MÓNICA VIEIRA Sign-Out Date: 04/17/2025 14:51 Performing Lab: [facility], [address] [place] [address] Pathology Dept Disclaimer If ancillary studies were utilized, the following Laboratory Developed Test (LDT) disclaimer will apply: Under CLIA requirements, [facility] is qualified to perform high complexity testing. For all ancillary stains, positive and negative controls stain appropriately. Performance characteristics of immunohistochemical and chromogenic in-situ hybridization tests have been determined by [facility]. These tests are used for clinical purposes, They should not be regarded as investigational or for research. Normal [facility] TSHRon 04-17-2025 TSH 4.806 mIU/mL High 0.550-4.78 0 [facility] Comment on above: Performed By: #### P ROBF, BFPR, PHBF, BFCT, GLUBF, LDBF #### [place] [address] XR CHEST 1 VIEWon 04-17-2025 XR CHEST [...] 04/17/2025 8:12:37 AM Ordering Provider: GLORIA Francois [facility] .Auto Diffon 04-16-2025 Basophil, Absolute 0.0 10 3/mcL Normal 0.0-0.3 [facility] Comment on above: Performed By: #### P ROBF, BFPR, PHBF, BFCT, GLUBF, LDBF #### [address] [address] Basophils/100 WBC (Bld) 0.1 % Normal 0.0-2.5 [facility] Comment on above: Performed By: #### P ROBF, BFPR, PHBF, BFCT, GLUBF, LDBF #### [address] [address] Eosinophil, Absolute 0.5 10 3/mcL Normal 0.0-0.7 [facility] Comment on above: Performed By: #### P ROBF, BFPR, PHBF, BFCT, GLUBF, LDBF #### [address] [address] Eosinophils/100 WBC (Bld) 5.3 % Normal 0.0-6.0 [facility] Comment on above: Performed By: #### P ROBF, BFPR, PHBF, BFCT, GLUBF, LDBF #### [address] [address] Lymphocyte, Absolute 0.4 10 3/mcL Low 0.9-4.3 [facility] Comment on above: Performed By: #### P ROBF, BFPR, PHBF, BFCT, GLUBF, LDBF #### [address] [address] Lymphocytes/100 WBC (Bld) 4.8 % Low 20.0-40.0 [facility] Comment on above: Performed By: #### P ROBF, BFPR, PHBF, BFCT, GLUBF, LDBF #### [address] [address] Monocyte, Absolute 0.7 10 3/mcL Normal 0.1-1.4 [facility] Comment on above: Performed By: #### P ROBF, BFPR, PHBF, BFCT, GLUBF, LDBF #### [address] [address] Monocytes/100 WBC (Bld) 8.3 % Normal 2.0-13.0 [facility] Comment on above: Performed By: #### P ROBF, BFPR, PHBF, BFCT, GLUBF, LDBF #### [address] [address] Neutrophils/100 WBC (Bld) 81.5 % High 50.0-75.0 [facility] Comment on above: Performed By: #### P ROBF, BFPR, PHBF, BFCT, GLUBF, LDBF #### [place] [address] .GFRon 04-16-2025 Estimated Glomerular Filtration Rate 48 ml/min/1.73sqm Normal [facility] Comment on above: Result [...] ROBF, BFPR, PHBF, BFCT, GLUBF, LDBF #### [place] [address] .NEUABSon 04-16-2025 Neutrophil, Absolute 7.3 10 3/mcL Normal 2.3-8.1 [facility] Comment on above: Performed By: #### P ROBF, BFPR, PHBF, BFCT, GLUBF, LDBF #### [place] [id number] APTTon 04-16-2025 aPTT Coag (Bld) [Time] 63.1 s High 25.0-35.0 [facility] Comment on above: Result Comment: For Heparin anticoagulation therapy, the recommended therapeutic range is: 54-77 seconds (APTT Correlation with Anti-Xa therapeutic range of 0.3-0.7 units/ml). PLEASE REFERENCE THE PHARMACY PROTOCOL FOR DOSING. Performed By: #### P ROBF, BFPR, PHBF, BFCT, GLUBF, LDBF #### [place] [address] aPTT Coag (Bld) [Time] 55.6 s High 25.0-35.0 [facility] Comment on above: Result Comment: For Heparin anticoagulation therapy, the recommended therapeutic range is: 54-77 seconds (APTT Correlation with Anti-Xa therapeutic range of 0.3-0.7 units/ml). PLEASE REFERENCE THE PHARMACY PROTOCOL FOR DOSING. Performed By: #### A PTT #### [place] [address] CBCon 04-16-2025 Erythrocyte distribution width (RBC) [Ratio] 18.8 % High 11.5-15.5 [facility] Comment on above: Performed By: #### P ROBF, BFPR, PHBF, BFCT, GLUBF, LDBF #### [place] [address] Hematocrit (Bld) [Volume fraction] 27.9 % Low 40.0-52.0 [facility] Comment on above: Performed By: #### P ROBF, BFPR, PHBF, BFCT, GLUBF, LDBF #### [place] [address] Hgb 9.1 G/dL Low 13.0-17.5 [facility] Comment on above: Performed By: #### P ROBF, BFPR, PHBF, BFCT, GLUBF, LDBF #### [place] [address] MCH (RBC) [Entitic mass] 27.8 pg Normal 27.0-33.0 [facility] Comment on above: Performed By: #### P ROBF, BFPR, PHBF, BFCT, GLUBF, LDBF #### [place] [address] MCHC 32.8 G/dL Normal 32.0-36.0 [facility] Comment on above: Performed By: #### P ROBF, BFPR, PHBF, BFCT, GLUBF, LDBF #### [place] [address] MCV (RBC) [Entitic vol] 84.7 fL Normal 81.0-100.0 [facility] Comment on above: Performed By: #### P ROBF, BFPR, PHBF, BFCT, GLUBF, LDBF #### [place] [address] Platelet 158 10 3/mcL Normal 150-450 [facility] Comment on above: Performed By: #### P ROBF, BFPR, PHBF, BFCT, GLUBF, LDBF #### [place] [address] Platelet mean volume (Bld) [Entitic vol] 8.7 fL Normal 6.4-10.5 [facility] Comment on above: Performed By: #### P ROBF, BFPR, PHBF, BFCT, GLUBF, LDBF #### [place] [address] RBC 3.29 10 6/mcL Low 4.50-6.00 [facility] Comment on above: Performed By: #### P ROBF, BFPR, PHBF, BFCT, GLUBF, LDBF #### [place] [address] WBC 9.0 10 3/mcL Normal 4.5-10.8 [facility] Comment on above: Performed By: #### P ROBF, BFPR, PHBF, BFCT, GLUBF, LDBF #### [place] [address] CMPon 04-16-2025 Albumin Level 2.6 G/dL Low 3.2-4.8 [facility] Comment on above: Performed By: #### P ROBF, BFPR, PHBF, BFCT, GLUBF, LDBF #### [place] [address] Albumin/Globulin [Mass ratio] 0.8 {ratio} Low 0.9-1.6 [facility] Comment on above: Performed By: #### P ROBF, BFPR, PHBF, BFCT, GLUBF, LDBF #### [place] [address] ALP [Catalytic activity/Vol] 59 U/L Normal 38-126 [facility] Comment on above: Performed By: #### P ROBF, BFPR, PHBF, BFCT, GLUBF, LDBF #### [place] [address] ALT [Catalytic activity/Vol] 23 U/L Normal 12-55 [facility] Comment on above: Performed By: #### P ROBF, BFPR, PHBF, BFCT, GLUBF, LDBF #### [place] [address] AST [Catalytic activity/Vol] 17 U/L Normal 8-34 [facility] Comment on above: Performed By: #### P ROBF, BFPR, PHBF, BFCT, GLUBF, LDBF #### [place] [address] Bili Total 0.50 mg/dL Normal 0.20-1.20 [facility] Comment on above: Result Comment: Use of this assay is not recommended for patients undergoing treatment with eltrombopag due to the potential for falsely elevated results. Performed By: #### P ROBF, BFPR, PHBF, BFCT, GLUBF, LDBF #### [place] [address] BUN/Creatinine Ratio 22.6 ratio High 10.0-22.0 [facility] Comment on above: Performed By: #### P ROBF, BFPR, PHBF, BFCT, GLUBF, LDBF #### [place] [address] Calcium [Mass/Vol] 9.2 mg/dL Normal 8.7-10.4 [facility] Comment on above: Performed By: #### P ROBF, BFPR, PHBF, BFCT, GLUBF, LDBF #### [address] [address] Chloride [Moles/Vol] 91 mmol/L Low 98-110 [facility] Comment on above: Performed By: #### P ROBF, BFPR, PHBF, BFCT, GLUBF, LDBF #### [address] [address] CO2 [Moles/Vol] 38 mmol/L High 22-32 [facility] Comment on above: Performed By: #### P ROBF, BFPR, PHBF, BFCT, GLUBF, LDBF #### [address] [address] Creatinine [Mass/Vol] 1.46 mg/dL High 0.60-1.40 [facility] Comment on above: Result Comment: Test ing performed on Rundown App analyzer using enzymatic creatinine methodology. Performed By: #### P ROBF, BFPR, PHBF, BFCT, GLUBF, LDBF #### [address] [address] Electrolyte Balance 9.0 mEq/L Normal 4.0-15.0 [facility] Comment on above: Performed By: #### P ROBF, BFPR, PHBF, BFCT, GLUBF, LDBF #### [address] [address] Globulin 3.2 G/dL Normal 2.5-4.2 [facility] Comment on above: Performed By: #### P ROBF, BFPR, PHBF, BFCT, GLUBF, LDBF #### [address] [address] Glucose [Mass/Vol] 144 mg/dL High 82-115 [facility] Comment on above: Performed By: #### P ROBF, BFPR, PHBF, BFCT, GLUBF, LDBF #### [place] [id number] Potassium [Moles/Vol] 3.7 mmol/L Normal 3.5-5.0 [facility] Comment on above: Performed By: #### P ROBF, BFPR, PHBF, BFCT, GLUBF, LDBF #### [facility] [address] [place] [address] Sodium [Moles/Vol] 138 mmol/L Normal 136-145 [facility] Comment on above: Performed By: #### P ROBF, BFPR, PHBF, BFCT, GLUBF, LDBF #### [facility] [address] [place] [address] Total Protein 5.8 G/dL Normal 5.7-8.2 [facility] Comment on above: Performed By: #### P ROBF, BFPR, PHBF, BFCT, GLUBF, LDBF #### [facility] [address] [place] [address] Urea nitrogen [Mass/Vol] 33.0 mg/dL High 8.0-22.0 [facility] Comment on above: Performed By: #### P ROBF, BFPR, PHBF, BFCT, GLUBF, LDBF #### [address] [address] LABORATORYOrdered By: Mónica Brown on 04-16-2025 Blood Glucose Testing Reason Routine (04/16/25 9:15 PM) [facility] Work Phone: Glucose [Mass/Vol] 207 mg/dL High 82 - 115 mg/dL [facility] Work Phone: LABORATORYOrdered By: SYSTEM SYSTEM [...] 10^3/mcL AH Workflow SS Basophils/100 WBC (Bld) 0.1 % Normal 0.0 - 2.5 % Workflow SS Bilirubin [Mass/Vol] 0.50 mg/dL Normal 0.20 - 1.20 mg/dL AH [...] above: Interpretive Data: T esting performed on Rundown App analyzer using enzymatic creatinine methodology. Electrolyte Balance [...] 04-16-2025 Magnesium [Mass/Vol] 1.8 mg/dL Normal 1.6-2.4 [facility] Comment on above: Performed By: #### P ROBF, BFPR, PHBF, BFCT, GLUBF, LDBF #### [address] [address] .Auto Diffon 04-15-2025 Basophil, Absolute 0.0 10 3/mcL Normal 0.0-0.3 [facility] Comment on above: Performed By: #### P ROBF, BFPR, PHBF, BFCT, GLUBF, LDBF #### [address] [address] Basophils/100 WBC (Bld) 0.1 % Normal 0.0-2.5 [facility] Comment on above: Performed By: #### P ROBF, BFPR, PHBF, BFCT, GLUBF, LDBF #### [address] [address] Eosinophil, Absolute 0.4 10 3/mcL Normal 0.0-0.7 [facility] Comment on above: Performed By: #### P ROBF, BFPR, PHBF, BFCT, GLUBF, LDBF #### [address] [address] Eosinophils/100 WBC (Bld) 4.1 % Normal 0.0-6.0 [facility] Comment on above: Performed By: #### P ROBF, BFPR, PHBF, BFCT, GLUBF, LDBF #### [facility] [address] [place] [address] Lymphocyte, Absolute 0.4 10 3/mcL Low 0.9-4.3 [facility] Comment on above: Performed By: #### P ROBF, BFPR, PHBF, BFCT, GLUBF, LDBF #### [address] [address] Lymphocytes/100 WBC (Bld) 4.5 % Low 20.0-40.0 [facility] Comment on above: Performed By: #### P ROBF, BFPR, PHBF, BFCT, GLUBF, LDBF #### [address] [address] Monocyte, Absolute 0.8 10 3/mcL Normal 0.1-1.4 [facility] Comment on above: Performed By: #### P ROBF, BFPR, PHBF, BFCT, GLUBF, LDBF #### [address] [address] Monocytes/100 WBC (Bld) 8.5 % Normal 2.0-13.0 [facility] Comment on above: Performed By: #### P ROBF, BFPR, PHBF, BFCT, GLUBF, LDBF #### [address] [address] Neutrophils/100 WBC (Bld) 82.8 % High 50.0-75.0 [facility] Comment on above: Performed By: #### P ROBF, BFPR, PHBF, BFCT, GLUBF, LDBF #### [address] [address] .GFRon 04-15-2025 Estimated Glomerular Filtration Rate 50 ml/min/1.73sqm Normal [facility] Comment on above: Result [...] ROBF, BFPR, PHBF, BFCT, GLUBF, LDBF #### [address] [address] .NEUABSon 04-15-2025 Neutrophil, Absolute 7.8 10 3/mcL Normal 2.3-8.1 [facility] Comment on above: Performed By: #### P ROBF, BFPR, PHBF, BFCT, GLUBF, LDBF #### [place] [address] APTTon 04-15-2025 aPTT Coag (Bld) [Time] 55.0 s High 25.0-35.0 [facility] Comment on above: Result Comment: For Heparin anticoagulation therapy, the recommended therapeutic range is: 54-77 seconds (APTT Correlation with Anti-Xa therapeutic range of 0.3-0.7 units/ml). PLEASE REFERENCE THE PHARMACY PROTOCOL FOR DOSING. Performed By: #### P ROBF, BFPR, PHBF, BFCT, GLUBF, LDBF #### [place] [address] BFCTon 04-15-2025 Cells Counted BF 100 Normal [facility] Comment on above: Performed By: #### P ROBF, BFPR, PHBF, BFCT, GLUBF, LDBF #### [place] [address] Lymphocytes/100 WBC (Bld) 47 % Normal [facility] Comment on above: Performed By: #### P ROBF, BFPR, PHBF, BFCT, GLUBF, LDBF #### [place] [address] Mesothelial Cell % BF 4 % Normal [facility] Comment on above: Performed By: #### P ROBF, BFPR, PHBF, BFCT, GLUBF, LDBF #### [place] [address] Mononuclear cell % BF 1 % Normal [facility] Comment on above: Performed By: #### P ROBF, BFPR, PHBF, BFCT, GLUBF, LDBF #### [place] [address] Neutrophils/100 WBC (Bld) 48 % Normal [facility] Comment on above: Performed By: #### P ROBF, BFPR, PHBF, BFCT, GLUBF, LDBF #### [place] [address] Total Nucleated Cells 172 /mm3 Normal [facility] Comment on above: Performed By: #### P ROBF, BFPR, PHBF, BFCT, GLUBF, LDBF #### [place] [address] Body Fluid Source Pleural fluid Normal [facility] Comment on above: Result Comment: Refe rence ranges have not been established for this body fluid. The test results must be integrated into the clinical context for interpretation. Performed By: #### P ROBF, BFPR, PHBF, BFCT, GLUBF, LDBF #### [place] [address] BMPon 04-15-2025 BUN/Creatinine Ratio 30.8 ratio High 10.0-22.0 [facility] Comment on above: Performed By: #### P ROBF, BFPR, PHBF, BFCT, GLUBF, LDBF #### [place] [id number] Calcium [Mass/Vol] 8.7 mg/dL Normal 8.7-10.4 [facility] Comment on above: Performed By: #### P ROBF, BFPR, PHBF, BFCT, GLUBF, LDBF #### [place] [id number] Chloride [Moles/Vol] 94 mmol/L Low 98-110 [facility] Comment on above: Performed By: #### P ROBF, BFPR, PHBF, BFCT, GLUBF, LDBF #### [address] [address] CO2 [Moles/Vol] 39 mmol/L High 22-32 [facility] Comment on above: Performed By: #### P ROBF, BFPR, PHBF, BFCT, GLUBF, LDBF #### [address] [address] Creatinine [Mass/Vol] 1.43 mg/dL High 0.60-1.40 [facility] Comment on above: Result Comment: Test ing performed on Rundown App analyzer using enzymatic creatinine methodology. Performed By: #### P ROBF, BFPR, PHBF, BFCT, GLUBF, LDBF #### [address] [address] Electrolyte Balance 7.0 mEq/L Normal 4.0-15.0 [facility] Comment on above: Performed By: #### P ROBF, BFPR, PHBF, BFCT, GLUBF, LDBF #### [address] [address] Glucose [Mass/Vol] 134 mg/dL High 82-115 [facility] Comment on above: Performed By: #### P ROBF, BFPR, PHBF, BFCT, GLUBF, LDBF #### [address] [address] Potassium [Moles/Vol] 3.8 mmol/L Normal 3.5-5.0 [facility] Comment on above: Performed By: #### P ROBF, BFPR, PHBF, BFCT, GLUBF, LDBF #### [address] [address] Sodium [Moles/Vol] 140 mmol/L Normal 136-145 [facility] Comment on above: Performed By: #### P ROBF, BFPR, PHBF, BFCT, GLUBF, LDBF #### [address] [address] Urea nitrogen [Mass/Vol] 44.0 mg/dL High 8.0-22.0 [facility] Comment on above: Performed By: #### P ROBF, BFPR, PHBF, BFCT, GLUBF, LDBF #### [place] [address] CBCon 04-15-2025 Erythrocyte distribution width (RBC) [Ratio] 17.9 % High 11.5-15.5 [facility] Comment on above: Performed By: #### P ROBF, BFPR, PHBF, BFCT, GLUBF, LDBF #### [place] [address] Hematocrit (Bld) [Volume fraction] 26.7 % Low 40.0-52.0 [facility] Comment on above: Performed By: #### P ROBF, BFPR, PHBF, BFCT, GLUBF, LDBF #### [place] [address] Hgb 8.6 G/dL Low 13.0-17.5 [facility] Comment on above: Performed By: #### P ROBF, BFPR, PHBF, BFCT, GLUBF, LDBF #### [place] [address] MCH (RBC) [Entitic mass] 26.9 pg Low 27.0-33.0 [facility] Comment on above: Performed By: #### P ROBF, BFPR, PHBF, BFCT, GLUBF, LDBF #### [place] [address] MCHC 32.1 G/dL Normal 32.0-36.0 [facility] Comment on above: Performed By: #### P ROBF, BFPR, PHBF, BFCT, GLUBF, LDBF #### [place] [address] MCV (RBC) [Entitic vol] 83.9 fL Normal 81.0-100.0 [facility] Comment on above: Performed By: #### P ROBF, BFPR, PHBF, BFCT, GLUBF, LDBF #### [place] [address] Platelet 169 10 3/mcL Normal 150-450 [facility] Comment on above: Performed By: #### P ROBF, BFPR, PHBF, BFCT, GLUBF, LDBF #### [place] [address] Platelet mean volume (Bld) [Entitic vol] 8.2 fL Normal 6.4-10.5 [facility] Comment on above: Performed By: #### P ROBF, BFPR, PHBF, BFCT, GLUBF, LDBF #### [place] [address] RBC 3.18 10 6/mcL Low 4.50-6.00 [facility] Comment on above: Performed By: #### P ROBF, BFPR, PHBF, BFCT, GLUBF, LDBF #### [place] [address] WBC 9.4 10 3/mcL Normal 4.5-10.8 [facility] Comment on above: Performed By: #### P ROBF, BFPR, PHBF, BFCT, GLUBF, LDBF #### [place] [address] GLUBFon 04-15-2025 Glucose Body Fluid Spec Type Pleural fluid Normal [facility] Comment on above: Result Comment: The reference interval(s) and other method performance specifications have not been established for this body fluid. The test result must be integrated into the clinical content for interpretation. Performed By: #### P ROBF, BFPR, PHBF, BFCT, GLUBF, LDBF #### [place] [address] Glucose BF 191.0 mg/dL Normal [facility] Comment on above: Performed By: #### P ROBF, BFPR, PHBF, BFCT, GLUBF, LDBF #### [place] [address] HFPon 04-15-2025 Bili Indirect 0.2 mg/dL Normal 0.1-10.0 [facility] Comment on above: Performed By: #### T MADHAVI #### [place] [address] Albumin Level 2.9 G/dL Low 3.2-4.8 [facility] Comment on above: Performed By: #### T MADHAVI #### [place] [address] Albumin/Globulin [Mass ratio] 0.8 {ratio} Low 0.9-1.6 [facility] Comment on above: Performed By: #### T MADHAVI #### [place] [address] ALP [Catalytic activity/Vol] 65 U/L Normal 38-126 [facility] Comment on above: Performed By: #### T MADHAVI #### [place] [address] ALT [Catalytic activity/Vol] 29 U/L Normal 12-55 [facility] Comment on above: Performed By: #### T MADHAVI #### [place] [address] AST [Catalytic activity/Vol] 23 U/L Normal 8-34 [facility] Comment on above: Performed By: #### T MADHAVI #### [place] [address] Bili Direct 0.2 mg/dL Normal 0.0-0.4 [facility] Comment on above: Result Comment: Use of this assay is not recommended for patients undergoing treatment with eltrombopag due to the potential for falsely elevated results. Performed By: #### T MADHAVI #### [place] [address] Bili Total 0.40 mg/dL Normal 0.20-1.20 [facility] Comment on above: Result Comment: Use of this assay is not recommended for patients undergoing treatment with eltrombopag due to the potential for falsely elevated results. Performed By: #### T MADHAVI #### [place] [address] Globulin 3.6 G/dL Normal 2.5-4.2 [facility] Comment on above: Performed By: #### T MADHAVI #### [place] [id number] [place] [address] Total Protein 6.5 G/dL Normal 5.7-8.2 [facility] Comment on above: Performed By: #### T MADHAVI #### [address] [address] LABORATORYOrdered By: SYSTEM SYSTEM on 04-15-2025 Albumin [...] above: Interpretive Data: T esting performed on Rund[employer] App analyzer using enzymatic creatinine methodology. Electrolyte Balance [...] Body Fluid Spec Type Pleural fluid Normal [facility] Comment on above: Result Comment: The reference interval(s) and other method performance specifications have not been established for this body fluid. The test result must be integrated into the clinical content for interpretation. . Performed By: #### P ROBF, BFPR, PHBF, BFCT, GLUBF, LDBF #### [address] [address] LDH BF 137.0 U/L Normal [facility] Comment on above: Performed By: #### P ROBF, BFPR, PHBF, BFCT, GLUBF, LDBF #### [address] [address] LDHon 04-15-2025 LDH 216 U/L Normal 120-246 [facility] Comment on above: Performed By: #### T ROPHS #### [address] [address] MGon 04-15-2025 Magnesium [Mass/Vol] 1.8 mg/dL Normal 1.6-2.4 [facility] Comment on above: Performed By: #### P ROBF, BFPR, PHBF, BFCT, GLUBF, LDBF #### [address] [address] No Panel Informationon 04-15 AFS Acid Fast Smear from Concentrated Specimen: Negative [facility] Work Phone: Culture Body Fluid Culture has been rec eived in lab and is no growth to date. Routine cultures are held for 5 days. [facility] Work Phone: FUNSM No fungal elements observed by calcofluor white stain. [facility] Work Phone: GS Sedimented 1+ Polymorphonuclear cells 1+ Mononuclear cells No organisms seen. [facility] Work Phone: Non-Advertiser Cytology Reporton Non-Advertiser Cytology Report Event Display: N G Specimen Right pleural fluid MÓNICA VIEIRA MD:VERIFY; Authored Date: [facility] Work Phone: Non-Advertiser Cytology Report Event Display: N G Signature Pathology Report verified by [facility] Screened by: ANMOL GARCIA Electronically signed by MÓNICA VIEIRA Sign-Out Date: 04/17/2025 14:51 Performing Lab: [facility], [address] [place] [address] Pathology Dept MÓNICA VIEIRA MD:VERIFY; Authored Date: [facility] Work Phone: Non-Advertiser Cytology Report Event Display: N G Clin Info Pleural effusion MÓNICA VIEIRA MD:VERIFY; Authored Date: [facility] Work Phone: Non-Advertiser Cytology Report Event Display: N G Diagnostic Category Interp NEGATIVE FOR MALIGNANCY. MÓNICA VIEIRA MD:VERIFY; Authored Date: [facility] Work Phone: Non-Advertiser Cytology Report Event Display: N G Gross # of Blocks: 1 # of Monolayers: 1 Volume (ml) 950 Color: fresh cloudy red/orange fluid MÓNICA VIEIRA MD:VERIFY; Authored Date: [facility] Work Phone: Non-Advertiser Cytology Report Event Display: N G Disclaimer If ancillary studies were utilized, the following Laboratory Developed Test (LDT) disclaimer will apply: Under CLIA requirements, [facility] is qualified to perform high complexity testing. For all ancillary stains, positive and negative controls stain appropriately. Performance characteristics of immunohistochemical and chromogenic in-situ hybridization tests have been determined by [facility]. These tests are used for clinical purposes, They should not be regarded as investigational or for research. MÓNICA VIEIRA MD:VERIFY; Authored Date: [facility] Work Phone: PBNPon 04-15-2025 Natriuretic peptide B (Bld) [Mass/Vol] 4360 pg/mL High 0-1800 [facility] Comment on above: Performed By: #### P ROBF, BFPR, PHBF, BFCT, GLUBF, LDBF #### [place] [address] PHBFon 04-15-2025 pH BF 7.4 Normal [facility] Comment on above: Result Comment: domingo becerril Performed By: #### P ROBF, BFPR, PHBF, BFCT, GLUBF, LDBF #### [place] [address] pH BF Spec Type Pleural fluid Normal [facility] Comment on above: Result Comment: The reference interval(s) and other method performance specifications have not been established for this body fluid. The test result must be integrated into the clinical content for interpretation. Performed By: #### P ROBF, BFPR, PHBF, BFCT, GLUBF, LDBF #### [place] [address] PROBFon 04-15-2025 Protein BF Type Pleural fluid Normal [facility] Comment on above: Result Comment: The reference interval(s) and other method performance specifications have not been established for this body fluid. The test result must be integrated into the clinical content for interpretation. Performed By: #### P ROBF, BFPR, PHBF, BFCT, GLUBF, LDBF #### [place] [address] Protein BF <2.0 Normal [facility] Comment on above: Performed By: #### P ROBF, BFPR, PHBF, BFCT, GLUBF, LDBF #### [place] [address] XR CHEST 1 VIEWon 04-15-2025 XR CHEST [...] 04/15/2025 11:43:46 AM Ordering Provider: OLAMIDE GONZALEZ [facility] XR CHEST 1 VIEW ORIGINAL EXAMINATION: [...] 04/15/2025 7:22:03 AM Ordering Provider: GLORIA DAVIS [facility] .Auto Diffon 04-14-2025 Basophil, Absolute 0.0 10 3/mcL Normal 0.0-0.3 [facility] Comment on above: Performed By: #### P ROBF, BFPR, PHBF, BFCT, GLUBF, LDBF #### [address] [address] Basophils/100 WBC (Bld) 0.2 % Normal 0.0-2.5 [facility] Comment on above: Performed By: #### P ROBF, BFPR, PHBF, BFCT, GLUBF, LDBF #### [address] [address] Eosinophil, Absolute 0.2 10 3/mcL Normal 0.0-0.7 [facility] Comment on above: Performed By: #### P ROBF, BFPR, PHBF, BFCT, GLUBF, LDBF #### [address] [address] Eosinophils/100 WBC (Bld) 1.9 % Normal 0.0-6.0 [facility] Comment on above: Performed By: #### P ROBF, BFPR, PHBF, BFCT, GLUBF, LDBF #### [address] [address] Lymphocyte, Absolute 0.4 10 3/mcL Low 0.9-4.3 [facility] Comment on above: Performed By: #### P ROBF, BFPR, PHBF, BFCT, GLUBF, LDBF #### [address] [address] Lymphocytes/100 WBC (Bld) 4.0 % Low 20.0-40.0 [facility] Comment on above: Performed By: #### P ROBF, BFPR, PHBF, BFCT, GLUBF, LDBF #### [address] [address] Monocyte, Absolute 0.9 10 3/mcL Normal 0.1-1.4 [facility] Comment on above: Performed By: #### P ROBF, BFPR, PHBF, BFCT, GLUBF, LDBF #### [address] [address] Monocytes/100 WBC (Bld) 8.3 % Normal 2.0-13.0 [facility] Comment on above: Performed By: #### P ROBF, BFPR, PHBF, BFCT, GLUBF, LDBF #### [address] [address] Neutrophils/100 WBC (Bld) 85.6 % High 50.0-75.0 [facility] Comment on above: Performed By: #### P ROBF, BFPR, PHBF, BFCT, GLUBF, LDBF #### [address] [address] .GFRon 04-14-2025 Estimated Glomerular Filtration Rate 49 ml/min/1.73sqm Normal [facility] Comment on above: Result [...] results. Performed By: #### T MADHAVI #### [place] [address] .NEUABSon 04-14-2025 Neutrophil, Absolute 9.2 10 3/mcL High 2.3-8.1 [facility] Comment on above: Performed By: #### P ROBF, BFPR, PHBF, BFCT, GLUBF, LDBF #### [place] [address] APTTon 04-14-2025 aPTT Coag (Bld) [Time] 28.2 s Normal 25.0-35.0 [facility] Comment on above: Result Comment: For Heparin anticoagulation therapy, the recommended therapeutic range is: 54-77 seconds (APTT Correlation with Anti-Xa therapeutic range of 0.3-0.7 units/ml). PLEASE REFERENCE THE PHARMACY PROTOCOL FOR DOSING. Performed By: #### A PTT, PRO #### [place] [id number] BMPon 04-14-2025 BUN/Creatinine Ratio 32.4 ratio High 10.0-22.0 [facility] Comment on above: Performed By: #### T MADHAVI #### [address] [address] Calcium [Mass/Vol] 8.6 mg/dL Low 8.7-10.4 [facility] Comment on above: Performed By: #### T MADHAVI #### [place] [id number] Chloride [Moles/Vol] 98 mmol/L Normal 98-110 [facility] Comment on above: Performed By: #### T MADHAVI #### [address] [address] CO2 [Moles/Vol] 40 mmol/L Critically abnormal 22-32 [facility] Comment on above: Performed By: #### T MADHAVI #### [address] [address] Creatinine [Mass/Vol] 1.45 mg/dL High 0.60-1.40 [facility] Comment on above: Result Comment: Test ing performed on [employer] analyzer using enzymatic creatinine methodology. Performed By: #### T MADHAVI #### [address] [address] Electrolyte Balance 5.0 mEq/L Normal 4.0-15.0 [facility] Comment on above: Performed By: #### T MADHAVI #### [address] [address] Glucose [Mass/Vol] 88 mg/dL Normal 82-115 [facility] Comment on above: Performed By: #### T MADHAVI #### [address] [address] Potassium [Moles/Vol] 4.3 mmol/L Normal 3.5-5.0 [facility] Comment on above: Performed By: #### T MADHAVI #### [address] [address] Sodium [Moles/Vol] 143 mmol/L Normal 136-145 [facility] Comment on above: Performed By: #### T MADHAVI #### [address] [address] Urea nitrogen [Mass/Vol] 47.0 mg/dL High 8.0-22.0 [facility] Comment on above: Performed By: #### T MADHAVI #### [address] [address] CBCon 04-14-2025 Erythrocyte distribution width (RBC) [Ratio] 18.4 % High 11.5-15.5 [facility] Comment on above: Performed By: #### P ROBF, BFPR, PHBF, BFCT, GLUBF, LDBF #### [place] [address] Hematocrit (Bld) [Volume fraction] 29.0 % Low 40.0-52.0 [facility] Comment on above: Performed By: #### P ROBF, BFPR, PHBF, BFCT, GLUBF, LDBF #### [place] [id number] Hgb 9.0 G/dL Low 13.0-17.5 [facility] Comment on above: Performed By: #### P ROBF, BFPR, PHBF, BFCT, GLUBF, LDBF #### [place] [id number] MCH (RBC) [Entitic mass] 26.3 pg Low 27.0-33.0 [facility] Comment on above: Performed By: #### P ROBF, BFPR, PHBF, BFCT, GLUBF, LDBF #### [place] [address] MCHC 31.0 G/dL Low 32.0-36.0 [facility] Comment on above: Performed By: #### P ROBF, BFPR, PHBF, BFCT, GLUBF, LDBF #### [place] [address] MCV (RBC) [Entitic vol] 84.9 fL Normal 81.0-100.0 [facility] Comment on above: Performed By: #### P ROBF, BFPR, PHBF, BFCT, GLUBF, LDBF #### [place] [address] Platelet 165 10 3/mcL Normal 150-450 [facility] Comment on above: Performed By: #### P ROBF, BFPR, PHBF, BFCT, GLUBF, LDBF #### [place] [address] Platelet mean volume (Bld) [Entitic vol] 7.8 fL Normal 6.4-10.5 [facility] Comment on above: Performed By: #### P ROBF, BFPR, PHBF, BFCT, GLUBF, LDBF #### [facility] [address] [place] [address] RBC 3.41 10 6/mcL Low 4.50-6.00 [facility] Comment on above: Performed By: #### P ROBF, BFPR, PHBF, BFCT, GLUBF, LDBF #### [facility] [address] [place] [address] WBC 10.8 10 3/mcL Normal 4.5-10.8 [facility] Comment on above: Performed By: #### P ROBF, BFPR, PHBF, BFCT, GLUBF, LDBF #### [facility] [address] [place] [address] LABORATORYOrdered By: SYSTEM SYSTEM on 04-14-2025 PT [...] Comment on above: Interpretive Data: Tyler mckeon [employer] (CHEST, 1992, 102:312S-25S) recommended therapeutic range for oral anticoagulant therapy is: LOW RISK: Prophylaxis of venous thrombosis INR: 2.0-3.0 Treatment of pulmonary embolism 2.0-3.0 Prevention of systemic embolism 2.0-3.0 HIGH RISK: Mechanical prosthetic valves 2.5-3.5 Troponin I.cardiac DL <= 0.01 ng/mL [Mass/Vol] 160 ng/L High 0 - 54 ng/L Comment on above: Interpretive Data: High Sensitive Troponin I Reference Ranges: Female: 0-34 ng/L Male: 0-54 ng/L Testing performed on [employer] analyzer using direct chemiluminescent technology. No Panel Informationon 04-14 Legionella Urine Ag Presumptive negative for L. pneumophila serogroup 1 antigen in urine, suggesting no recent or current infection. Legionnaire's disease cannot be ruled out since other serogroups and species may also cause disease. [facility] Work Phone: Streptococcus Pneumoniae Urine Antig Presumptive negative for pneumococcal pneumonia, suggesting no current or recent pneumococcal infection. Infection due to Strep pneumoniae cannot be ruled out since the antigen present in the sample may be below the detection limit of the test. [facility] Work Phone: Comment on above: This test has not be en evaluated on patients taking antibiotics for greater than 24 hours or on patients who have recently completed an antibiotic regimen. The accuracy of this test has not been proven in young children. PROon 04-14-2025 INR Coag (PPP) [Relative time] 1.2 {INR} Normal [facility] Comment on above: Result Comment: [employer] (CHEST, 1992, 102:312S-25S) recommended therapeutic range for oral anticoagulant therapy is: LOW RISK: Prophylaxis of venous thrombosis INR: 2.0-3.0 Treatment of pulmonary embolism 2.0-3.0 Prevention of systemic embolism 2.0-3.0 HIGH RISK: Mechanical prosthetic valves 2.5-3.5 Performed By: #### A PTT, PRO #### [address] [address] PT Coag (PPP) [Time] 13.9 s Normal 9.0-14.4 [facility] Comment on above: Result Comment: Effe ctive 03/03/08, Protime results may be affected by some antibiotics (i.e. Ciprofloxacin, Azithromycin, Bactrim) which may potentiate the action of oral anticoagulants, with further increases in Protime/INR. Performed By: #### A PTT, PRO #### [address] [address] TROPHSon 04-14-2025 High Sensitivity Troponin I 160 ng/L High 0-54 [facility] Comment on above: Result Comment: High Sensitive Troponin I Reference Ranges: Female: 0-34 ng/L Male: 0-54 ng/L Testing performed on [employer] analyzer using direct chemiluminescent technology. Performed By: #### T ROPHS #### [address] [address] XR CHEST 1 VIEWon 04-14-2025 XR CHEST [...] 04/14/2025 7:00:29 AM Ordering Provider: COLLEEN Francois [facility] .Auto Diffon 04-13-2025 Basophil, Absolute 0.0 10 3/mcL Normal 0.0-0.3 [facility] Comment on above: Performed By: #### P ROBF, BFPR, PHBF, BFCT, GLUBF, LDBF #### [address] [address] Basophils/100 WBC (Bld) 0.0 % Normal 0.0-2.5 [facility] Comment on above: Performed By: #### P ROBF, BFPR, PHBF, BFCT, GLUBF, LDBF #### [address] [address] Eosinophil, Absolute 0.0 10 3/mcL Normal 0.0-0.7 [facility] Comment on above: Performed By: #### P ROBF, BFPR, PHBF, BFCT, GLUBF, LDBF #### [address] [address] Eosinophils/100 WBC (Bld) 0.1 % Normal 0.0-6.0 [facility] Comment on above: Performed By: #### P ROBF, BFPR, PHBF, BFCT, GLUBF, LDBF #### [address] [address] Lymphocyte, Absolute 0.3 10 3/mcL Low 0.9-4.3 [facility] Comment on above: Performed By: #### P ROBF, BFPR, PHBF, BFCT, GLUBF, LDBF #### [address] [address] Lymphocytes/100 WBC (Bld) 3.0 % Low 20.0-40.0 [facility] Comment on above: Performed By: #### P ROBF, BFPR, PHBF, BFCT, GLUBF, LDBF #### [address] [address] Monocyte, Absolute 0.7 10 3/mcL Normal 0.1-1.4 [facility] Comment on above: Performed By: #### P ROBF, BFPR, PHBF, BFCT, GLUBF, LDBF #### [address] [address] Monocytes/100 WBC (Bld) 6.3 % Normal 2.0-13.0 [facility] Comment on above: Performed By: #### P ROBF, BFPR, PHBF, BFCT, GLUBF, LDBF #### [address] [address] Neutrophils/100 WBC (Bld) 90.6 % High 50.0-75.0 [facility] Comment on above: Performed By: #### P ROBF, BFPR, PHBF, BFCT, GLUBF, LDBF #### [address] [address] .GFRon 04-13-2025 Estimated Glomerular Filtration Rate 48 ml/min/1.73sqm Normal [facility] Comment on above: Result [...] ROBF, BFPR, PHBF, BFCT, GLUBF, LDBF #### [place] [address] .NEUABSon 04-13-2025 Neutrophil, Absolute 10.5 10 3/mcL High 2.3-8.1 [facility] Comment on above: Performed By: #### P ROBF, BFPR, PHBF, BFCT, GLUBF, LDBF #### [place] [address] CBCon 04-13-2025 Erythrocyte distribution width (RBC) [Ratio] 17.7 % High 11.5-15.5 [facility] Comment on above: Performed By: #### P ROBF, BFPR, PHBF, BFCT, GLUBF, LDBF #### [place] [address] Hematocrit (Bld) [Volume fraction] 29.7 % Low 40.0-52.0 [facility] Comment on above: Performed By: #### P ROBF, BFPR, PHBF, BFCT, GLUBF, LDBF #### [place] [address] Hgb 9.4 G/dL Low 13.0-17.5 [facility] Comment on above: Performed By: #### P ROBF, BFPR, PHBF, BFCT, GLUBF, LDBF #### [place] [address] MCH (RBC) [Entitic mass] 26.6 pg Low 27.0-33.0 [facility] Comment on above: Performed By: #### P ROBF, BFPR, PHBF, BFCT, GLUBF, LDBF #### [place] [address] MCHC 31.6 G/dL Low 32.0-36.0 [facility] Comment on above: Performed By: #### P ROBF, BFPR, PHBF, BFCT, GLUBF, LDBF #### [place] [id number] MCV (RBC) [Entitic vol] 84.3 fL Normal 81.0-100.0 [facility] Comment on above: Performed By: #### P ROBF, BFPR, PHBF, BFCT, GLUBF, LDBF #### [place] [address] Platelet 201 10 3/mcL Normal 150-450 [facility] Comment on above: Performed By: #### P ROBF, BFPR, PHBF, BFCT, GLUBF, LDBF #### [place] [address] Platelet mean volume (Bld) [Entitic vol] 8.1 fL Normal 6.4-10.5 [facility] Comment on above: Performed By: #### P ROBF, BFPR, PHBF, BFCT, GLUBF, LDBF #### [place] [id number] RBC 3.52 10 6/mcL Low 4.50-6.00 [facility] Comment on above: Performed By: #### P ROBF, BFPR, PHBF, BFCT, GLUBF, LDBF #### [place] [id number] WBC 11.6 10 3/mcL High 4.5-10.8 [facility] Comment on above: Performed By: #### P ROBF, BFPR, PHBF, BFCT, GLUBF, LDBF #### [place] [id number] CMPon 04-13-2025 Albumin Level 2.9 G/dL Low 3.2-4.8 [facility] Comment on above: Performed By: #### P ROBF, BFPR, PHBF, BFCT, GLUBF, LDBF #### [place] [id number] Albumin/Globulin [Mass ratio] 0.9 {ratio} Normal 0.9-1.6 [facility] Comment on above: Performed By: #### P ROBF, BFPR, PHBF, BFCT, GLUBF, LDBF #### [place] [address] ALP [Catalytic activity/Vol] 58 U/L Normal 38-126 [facility] Comment on above: Performed By: #### P ROBF, BFPR, PHBF, BFCT, GLUBF, LDBF #### [place] [address] ALT [Catalytic activity/Vol] 32 U/L Normal 12-55 [facility] Comment on above: Performed By: #### P ROBF, BFPR, PHBF, BFCT, GLUBF, LDBF #### [place] [address] AST [Catalytic activity/Vol] 26 U/L Normal 8-34 [facility] Comment on above: Performed By: #### P ROBF, BFPR, PHBF, BFCT, GLUBF, LDBF #### [place] [address] Bili Total 0.50 mg/dL Normal 0.20-1.20 [facility] Comment on above: Result Comment: Use of this assay is not recommended for patients undergoing treatment with eltrombopag due to the potential for falsely elevated results. Performed By: #### P ROBF, BFPR, PHBF, BFCT, GLUBF, LDBF #### [place] [address] BUN/Creatinine Ratio 33.3 ratio High 10.0-22.0 [facility] Comment on above: Performed By: #### P ROBF, BFPR, PHBF, BFCT, GLUBF, LDBF #### [place] [address] Calcium [Mass/Vol] 8.8 mg/dL Normal 8.7-10.4 [facility] Comment on above: Performed By: #### P ROBF, BFPR, PHBF, BFCT, GLUBF, LDBF #### [place] [id number] Chloride [Moles/Vol] 100 mmol/L Normal 98-110 [facility] Comment on above: Performed By: #### P ROBF, BFPR, PHBF, BFCT, GLUBF, LDBF #### [address] [address] CO2 [Moles/Vol] 39 mmol/L High 22-32 [facility] Comment on above: Performed By: #### P ROBF, BFPR, PHBF, BFCT, GLUBF, LDBF #### [address] [address] Creatinine [Mass/Vol] 1.47 mg/dL High 0.60-1.40 [facility] Comment on above: Result Comment: Test ing performed on [employer] analyzer using enzymatic creatinine methodology. Performed By: #### P ROBF, BFPR, PHBF, BFCT, GLUBF, LDBF #### [place] [address] Electrolyte Balance 4.0 mEq/L Normal 4.0-15.0 [facility] Comment on above: Performed By: #### P ROBF, BFPR, PHBF, BFCT, GLUBF, LDBF #### [place] [id number] Globulin 3.4 G/dL Normal 2.5-4.2 [facility] Comment on above: Performed By: #### P ROBF, BFPR, PHBF, BFCT, GLUBF, LDBF #### [address] [address] Glucose [Mass/Vol] 192 mg/dL High 82-115 [facility] Comment on above: Performed By: #### P ROBF, BFPR, PHBF, BFCT, GLUBF, LDBF #### [address] [address] Potassium [Moles/Vol] 4.5 mmol/L Normal 3.5-5.0 [facility] Comment on above: Performed By: #### P ROBF, BFPR, PHBF, BFCT, GLUBF, LDBF #### [address] [address] Sodium [Moles/Vol] 143 mmol/L Normal 136-145 [facility] Comment on above: Performed By: #### P ROBF, BFPR, PHBF, BFCT, GLUBF, LDBF #### [address] [address] Total Protein 6.3 G/dL Normal 5.7-8.2 [facility] Comment on above: Performed By: #### P ROBF, BFPR, PHBF, BFCT, GLUBF, LDBF #### [address] [address] Urea nitrogen [Mass/Vol] 49.0 mg/dL High 8.0-22.0 [facility] Comment on above: Performed By: #### P ROBF, BFPR, PHBF, BFCT, GLUBF, LDBF #### [place] [address] LABORATORYOrdered By: SYSTEM SYSTEM on 04-13-2025 Troponin I.cardiac DL <= 0.01 ng/mL [Mass/Vol] 174 ng/L High 0 - 54 ng/L [facility] Comment on above: Interpretive Data: High Sensitive Troponin I Reference Ranges: Female: 0-34 ng/L Male: 0-54 ng/L Testing performed on [employer] IM analyzer using direct chemiluminescent technology. Lactate [...] [employer] Comment on above: Interpretive Data: [employer] mckeon [employer] (CHEST, 1992, 102:312S-25S) [...] ng/L Male: 0-54 ng/L Testing performed on [employer] IM analyzer using direct chemiluminescent technology. LABORATORYOrdered [...] Lactic Acid Lvl 1.2 mmol/L Normal 0.5-2.2 [facility] Comment on above: Performed By: #### P ROBF, BFPR, PHBF, BFCT, GLUBF, LDBF #### [facility] [address] [place] [address] MGon 04-13-2025 Magnesium [Mass/Vol] 2.2 mg/dL Normal 1.6-2.4 [facility] Comment on above: Performed By: #### P ROBF, BFPR, PHBF, BFCT, GLUBF, LDBF #### [place] [id number] MYCOon 04-13-2025 Mycoplasma IgG Positive Normal [facility] Comment on above: Result Comment: INTE RPRETATION OF MYCOPLASMA IgG BY EIA: Negative: No detectable M. pneumoniae IgG antibody. Positive: Mycoplasma pneumoniae IgG antibody Detected. Equivocal: Equivocal for IgG antibodies to Mycoplasma pneumoniae. Suggest repeat testing in 10-14 days. Performed By: #### P ROBF, BFPR, PHBF, BFCT, GLUBF, LDBF #### [place] [address] Mycoplasma IgM Negative Normal [facility] Comment on above: Result [...] ROBF, BFPR, PHBF, BFCT, GLUBF, LDBF #### [place] [address] No Panel Informationon 04-13 Microscopic examination of blood, culture Culture has been received in lab and is no growth to date. Routine cultures are held for 5 days. [facility] Work Phone: PBNPon 04-13-2025 Natriuretic peptide B (Bld) [Mass/Vol] 6315 pg/mL High 0-1800 [facility] Comment on above: Performed By: #### P ROBF, BFPR, PHBF, BFCT, GLUBF, LDBF #### [place] [id number] PROon 04-13-2025 INR Coag (PPP) [Relative time] 1.3 {INR} Normal [facility] Comment on above: Result Comment: [employer] (CHEST, 1992, 102:312S-25S) recommended therapeutic range for oral anticoagulant therapy is: LOW RISK: Prophylaxis of venous thrombosis INR: 2.0-3.0 Treatment of pulmonary embolism 2.0-3.0 Prevention of systemic embolism 2.0-3.0 HIGH RISK: Mechanical prosthetic valves 2.5-3.5 Performed By: #### P ROBF, BFPR, PHBF, BFCT, GLUBF, LDBF #### [place] [address] PT Coag (PPP) [Time] 14.5 s High 9.0-14.4 [facility] Comment on above: Result Comment: Effe ctive 03/03/08, Protime results may be affected by some antibiotics (i.e. Ciprofloxacin, Azithromycin, Bactrim) which may potentiate the action of oral anticoagulants, with further increases in Protime/INR. Performed By: #### P ROBF, BFPR, PHBF, BFCT, GLUBF, LDBF #### [place] [id number] [facility] High Sensitivity Troponin I 174 ng/L High [address] [place] [address] MAIN Comment on above: Result Comment: High Sensitive Troponin I Reference Ranges: Female: 0-34 ng/L Male: 0-54 ng/L [facility] analyzer using direct chemiluminescent technology. Performed By: #### P ROBF, BFPR, PHBF, BFCT, GLUBF, LDBF #### [place] [address] High Sensitivity Troponin I 141 ng/L High [address] [place] [address] MAIN Comment on above: Result Comment: High Sensitive Troponin I Reference Ranges: Female: 0-34 ng/L Male: 0-54 ng/L Testing performed on [employer] IM analyzer using direct chemiluminescent technology. Performed By: #### P ROBF, BFPR, PHBF, BFCT, GLUBF, LDBF #### [place] [address] XR CHEST 1 VIEWon 04-13-2025 XR CHEST [...] 04/13/2025 2:58:50 PM Ordering Provider: COLLEEN DOE [facility] 12 Lead EKGon 04-12-2025 12 Lead EKG Normal [facility] Absolute lymphocyte countOrd ered By: Daniel Brownlee on 04-12-2025 Lymphocytes Auto (Unsp spec) [#/Vol] 0.34 10*3/uL Low 0.83-4.51 [facility] Anion gap in Serum or Plasma Ordered By: Daniel Brownlee on 04-12-2025 Anion gap [Moles/Vol] 9 mmol/L 5-15 [facility] Automated lymphocyte count a s percentage of total leukocytesOrdered By: Daniel Brownlee on 04-12-2025 Lymphocytes/100 WBC Auto (Unsp spec) 2.5 % Low 19-41 [facility] BUN/creatinine ratioOrdered By: Daniel Brownlee on 04-12-2025 Urea nitrogen/Creatinine [Mass ratio] 41.9 mg/mg High 10-20 [facility] Basic Metabolic Profile (BMP )on 04-12-2025 BUN/CRE 41.9 RATIO High 06-08 [facility] Comment on above: Performed By: #### L 503.1362, L500.2500 ####[facility] [id number] [place], [address] Calcium [Mass/Vol] 8.7 mg/dL Normal 7.6-11.0 [facility] Comment on above: Performed By: #### L 503.7505, L500.2500 ####[facility] [id number] [place], [address] Chloride [Moles/Vol] 93 mmol/L Low 98-108 [facility] Comment on above: Performed By: #### L 503.7505, L500.2500 ####[facility] [address] [place], [address] CO2 [Moles/Vol] 36.5 mmol/L High 21.0-32.0 [facility] Comment on above: Performed By: #### L 503.7505, L500.2500 ####[facility] [id number] [place], [address] Creatinine [Mass/Vol] 1.43 mg/dL High 0.70-1.20 [facility] Comment on above: Performed By: #### L 503.7505, L500.2500 ####[facility] [address] [place], [address] ECRCL 37.18 ml/min Low 50-250 [facility] Comment on above: Performed By: #### L 503.7505, L500.2500 ####[facility] [address] [place], [address] GAP 9 Normal 5-15 [facility] Comment on above: Performed By: #### L 503.7505, L500.2500 ####[facility] [address] [place], [address] GFR/1.73 sq M.predicted among non-blacks MDRD (S/P/Bld) [Vol rate/Area] 50 mL/min/{1.73_m2} Low >60 [facility] Comment on above: Result Comment: mL/m in/1.73m2 CKD-EPI Creatinine Equation (2020) Performed By: #### L 503.7505, L500.2500 ####[facility] [address] [place], [address] Glucose [Mass/Vol] 189 mg/dL High 70-99 [facility] Comment on above: Performed By: #### L 503.7505, L500.2500 ####[facility] [address] [place], [address] Potassium [Moles/Vol] 4.3 mmol/L Normal 3.3-5.1 [facility] Comment on above: Performed By: #### L 503.7505, L500.2500 ####[facility] [address] [place], [address] Sodium [Moles/Vol] 138 mmol/L Normal 133-145 [facility] Comment on above: Performed By: #### L 503.7505, L500.2500 ####[facility] [address] [place], [address] Urea nitrogen [Mass/Vol] 60 mg/dL High 4-19 [facility] Comment on above: Performed By: #### L 503.7505, L500.2500 ####[facility] [address] [place], [address] Basophil percentageOrdered B y: Daniel Brownlee on 04-12-2025 Basophils/100 WBC (Bld) 0.1 % 0-1 [facility] Bedside Glucoseon 04-12-2025 FINGERSTICK GLU 143 mg/dL High 74-106 [facility] Comment on above: Result Comment: KODY GEMENT OF PATIENT CARE PER NURSING PROTOCOL Performed By: #### L 501.080 ####[facility] [address] [place], [address] FINGERSTICK GLU 222 mg/dL High 74-106 [facility] Comment on above: Result Comment: KODY GEMENT OF PATIENT CARE PER NURSING PROTOCOL Performed By: #### L 501.080 ####[facility] [address] [place], [address] FINGERSTICK GLU 222 mg/dL High 74-106 [facility] Comment on above: Result Comment: KODY STRONG OF PATIENT CARE PER NURSING PROTOCOL Performed By: #### L 501.080 ####[facility] [address] [place], [address] Body Fluid Culton 04-12-2025 BFC Culture exhibits no growth. Normal [facility] Comment on above: Performed By: #### L 200.0200, M100.2900, M100.2000, M100.4001, L350.1000 ####[facility] [address] [place], [address] CBC W/Diff, Automatedon 03-21 Absolute Lymph 0.34 X10 3/uL Low 0.83-4.51 [facility] Comment on above: Performed By: #### L 100.0100, L501.4021 ####[facility] [address] [place], [address] Absolute Neut 12.7 X10 3/uL High 2.0-7.7 [facility] Comment on above: Performed By: #### L 100.0100, L501.4021 ####[facility] [address] [place], [address] Basophils/100 WBC (Bld) 0.1 % Normal 0-1 [facility] Comment on above: Performed By: #### L 100.0100, L501.4021 ####[facility] [address] [place], [address] Eosinophils/100 WBC (Bld) 0.0 % Normal 0-5 [facility] Comment on above: Performed By: #### L 100.0100, L501.4021 ####[facility] [address] [place], [address] Erythrocyte distribution width (RBC) [Ratio] 16.6 % High 11.6-14.6 [facility] Comment on above: Performed By: #### L 100.0100, L501.4021 ####[facility] [address] [place], [address] Hematocrit (Bld) [Volume fraction] 29.6 % Low 40-54 [facility] Comment on above: Performed By: #### L 100.0100, L501.4021 ####[facility] [address] [place], [address] Hemoglobin (Bld) [Mass/Vol] 9.1 g/dL Low 13.0-16.5 [facility] Comment on above: Performed By: #### L 100.0100, L501.4021 ####[facility] [address] [place], [address] IG% 0.700 Normal 0.0-0.9 [facility] Comment on above: Result Comment: IG% - Immature Granulocytes (promyelocytes, myelocytes andmetamyelocytes) > 1% indicates that a LEFT SHIFT is Present. Performed By: #### L 100.0100, L501.4021 ####[facility] [address] [place], [address] Lymphocytes/100 WBC (Bld) 2.5 % Low 19-41 [facility] Comment on above: Performed By: #### L 100.0100, L501.4021 ####[facility] [address] [place], [address] MCH (RBC) [Entitic mass] 27.2 pg Normal 27.0-32.0 [facility] Comment on above: Performed By: #### L 100.0100, L501.4021 ####[facility] [address] [place], [address] MCHC (RBC) [Mass/Vol] 30.7 g/dL Low 32-36 [facility] Comment on above: Performed By: #### L 100.0100, L501.4021 ####[facility] [address] [place], [address] MCV (RBC) [Entitic vol] 88.4 fL Normal 80-94 [facility] Comment on above: Performed By: #### L 100.0100, L501.4021 ####[facility] [address] [place], [address] Monocytes/100 WBC (Bld) 4.2 % Normal 0-10 [facility] Comment on above: Performed By: #### L 100.0100, L501.4021 ####[facility] [address] [place], [address] Neutrophils/100 WBC (Bld) 92.5 % High 47-70 [facility] Comment on above: Performed By: #### L 100.0100, L501.4021 ####[facility] [address] [place], [address] Nucleated RBC (Bld) [#/Vol] 0 10*3/uL Normal 0-5 [facility] Comment on above: Performed By: #### L 100.0100, L501.4021 ####[facility] [address] [place], [address] Platelet mean volume (Bld) [Entitic vol] 9.9 fL Normal 6.2-12.0 [facility] Comment on above: Performed By: #### L 100.0100, L501.4021 ####[facility] [address] [place], [address] Platelets (Bld) [#/Vol] 193 10*3/uL Normal 150-450 [facility] Comment on above: Performed By: #### L 100.0100, L501.4021 ####[facility] [address] [place], [address] RBC (Bld) [#/Vol] 3.35 10*6/uL Low 4.6-6.2 [facility] Comment on above: Performed By: #### L 100.0100, L501.4021 ####[facility] [address] [place], [address] RDW SD 53.6 fl High 35.1-43.9 [facility] Comment on above: Performed By: #### L 100.0100, L501.4021 ####[facility] [address] [place], [address] WBC (Bld) [#/Vol] 13.7 10*3/uL High 4.4-11.0 [facility] Comment on above: Performed By: #### L 100.0100, L501.4021 ####[facility] [address] [place], [address] Carbon dioxide, total [Moles /volume] in Central venous bloodOrdered By: Daniel Brownlee on 04-12-2025 CO2 [Moles/Vol] 36.5 mmol/L High 21.0-32.0 [facility] Chest PA and Lateralon 04-12 Chest PA and Lateral Normal [facility] Chest without Contraston Chest without Contrast Normal [facility] Chloride assayOrdered By: Kimo Brownlee on 04-12-2025 Chloride [Moles/Vol] 93 mmol/L Low 98-108 [facility] Culture, Anaerobic Any Sourc talat 04-12-2025 CUAN No anaerobic bacteri a isolated. Normal [facility] Comment on above: Performed By: #### L 200.0200, M100.2900, M100.2000, M100.4001, L350.1000 ####[facility] [address] [place], [address] Emergency Department Summary on 04-12-2025 Emergency Department Summary Normal [facility] Eosinophil percentageOrdered By: Daniel Brownlee on 04-12-2025 Eosinophils/100 WBC (Bld) 0.0 % 0-5 [facility] Erythrocyte distribution wid th ratioOrdered By: Daniel Brownlee on 04-12-2025 Erythrocyte distribution width (RBC) [Ratio] 16.6 % High 11.6-14.6 [facility] Erythrocyte distribution wid th standard deviationOrdered By: Daniel Brownlee on 04-12-2025 Erythrocyte distribution width (RBC) [Ratio] 53.6 fl High 35.1-43.9 [facility] Glomerular filtration rate ( GFR) estimation/1.73 sq m using serum, plasma, or whole bOrdered By: Daniel Brownlee on 04-12-2025 GFR/1.73 sq M.predicted among non-blacks MDRD (S/P/Bld) [Vol rate/Area] 50 mL/min/{1.73_m2} Low >60 [facility] deOrdered By: Valdez Olvio on 04-12-2025 Glucose [Mass/Vol] 143 mg/dL High 74-106 [facility] Hematocrit Auto (Bld) [Volum e fraction]Ordered By: Daniel Brownlee on 04-12-2025 Hematocrit (Bld) [Volume fraction] 29.6 % Low 40-54 [facility] Hemoglobin measurementOrdere d By: Daniel Brownlee on 04-12-2025 Hemoglobin (Bld) [Mass/Vol] 9.1 g/dL Low 13.0-16.5 [facility] Immature granulocytes/100 WB C Auto (Bld)Ordered By: Daniel Brownlee on 04-12-2025 Immature granulocytes/100 WBC (Bld) 0.700 % 0.0-0.9 [facility] L501.4021on 04-12-2025 Trop T High Sen 103 ng/L Invalid Interpretation Code <=22 [facility] Comment on above: Result Comment: Crit ical Result(s) Called ACOLE2 at: 2036 by:RIVERA??Results read back by same. Performed By: #### L 100.0100, L501.4021 ####[facility] [address] [place], [place], [id number] MCV (mean corpuscular volume ) determinationOrdered By: Daniel Brownlee on 04-12-2025 MCV (RBC) [Entitic vol] 88.4 fL 80-94 [facility] Mean corpuscular hemoglobin (MCH) determinationOrdered By: Daniel Brownlee on 04-12-2025 MCH (RBC) [Entitic mass] 27.2 pg 27.0-32.0 [facility] Monocyte percentageOrdered B y: Daniel Brownlee on 04-12-2025 Monocytes/100 WBC (Bld) 4.2 % 0-10 [facility] Natriuretic peptide.B prohor girish N-Terminal [Mass/volume] in Serum or PlasmaOrdered By: Daniel Brownlee on 04-12-2025 Natriuretic peptide.B prohormone N-Terminal [Mass/Vol] 7022 pg/mL High <1800 [facility] Neutrophil percentageOrdered By: Daniel Brownlee on 04-12-2025 Neutrophils/100 WBC (Bld) 92.5 % High 47-70 [facility] Platelet countOrdered By: Kimo Brownlee on 04-12-2025 Platelets (Bld) [#/Vol] 193 10*3/uL 150-450 [facility] Potassium measurement (mass/ volume)Ordered By: Daniel Brownlee on 04-12-2025 Potassium (Unsp spec) [Mass/Vol] 4.3 mmol/L 3.3-5.1 [facility] Pro- Brain NATRIURETIC PEPTI Adrienne 04-12-2025 Natriuretic peptide B (Bld) [Mass/Vol] 7022 pg/mL High <=1800 [facility] Comment on above: Result Comment: Hear t Failure Unlikely: < 300 pg/mLHeart Failure Likely< 50 Years: > 450 pg/mL50-75 Years: > 900 pg/mL>75 Years: > 1800 pg/mL Performed By: #### L 503.7505, L500.2500 ####[facility] [address] [place], [place], [id number] RBC Auto (Bld) [#/Vol]Ordere d By: Daniel Brownlee on 04-12-2025 RBC (Bld) [#/Vol] 3.35 10*6/uL Low 4.6-6.2 [facility] Serum creatinine measurement (mass/volume)Ordered By: Daniel Brownlee on 04-12-2025 Creatinine [Mass/Vol] 1.43 mg/dL High 0.70-1.20 [facility] Serum glucose measurement (m ass/volume)Ordered By: Daniel Brownlee on 04-12-2025 Glucose [Mass/Vol] 189 mg/dL High 70-99 [facility] Serum or plasma calcium kings[place] urement (mass/volume)Ordered By: Daniel Brownlee on 04-12-2025 Calcium [Mass/Vol] 8.7 mg/dL 7.6-11.0 [facility] Serum or plasma urea nitroge n measurement (mass/volume)Ordered By: Daniel Brownlee on 04-12-2025 Urea nitrogen [Mass/Vol] 60 mg/dL High 4-19 [facility] Sodium levelOrdered By: Mickie Brownlee on 04-12-2025 Sodium [Moles/Vol] 138 mmol/L 133-145 [facility] Troponin T HS 2 HRon 025 Trop T High Sen 98 ng/L Invalid Interpretation Code <=22 [facility] Comment on above: Result Comment: Crit ical Result(s) Called ALAERS at: 2234 by:RIVERA??Results read back by same. Performed By: #### L 499.0042 ####[facility] [address] [place], [place], [id number] Troponin T HS 4 HRon 025 Trop T High Sen Normal <=22 [facility] Comment on above: Result Comment: RAMÓN ENT DISCHARGED Performed By: #### L 499.0043 ####[facility] [address] [place], [place], [id number] Troponin T.cardiac [Mass/vol ume] in Serum or Plasma by High sensitivity methodOrdered By: Daniel Brownlee on 04-12-2025 Troponin T.cardiac High sensitivity method [Mass/Vol] 98 ng/L High <22 [facility] Troponin T.cardiac High sensitivity method [Mass/Vol] 103 ng/L High <22 [facility] White blood cell (WBC) count Ordered By: Daniel Brownlee on 04-12-2025 WBC (Bld) [#/Vol] 13.7 10*3/uL High 4.4-11.0 [facility] Absolute lymphocyte countOrd ered By: Valdez Olivo on 04-11-2025 Lymphocytes Auto (Unsp spec) [#/Vol] 0.34 10*3/uL Low 0.83-4.51 [facility] Anion gap in Serum or Plasma Ordered By: Valdez Olivo on 04-11-2025 Anion gap [Moles/Vol] 10 mmol/L 5-15 [facility] Automated lymphocyte count a s percentage of total leukocytesOrdered By: Valdez Olivo on 04-11-2025 Lymphocytes/100 WBC Auto (Unsp spec) 3.3 % Low 19-41 [facility] BUN/creatinine ratioOrdered By: Valdez Olivo on 04-11-2025 Urea nitrogen/Creatinine [Mass ratio] 42.1 mg/mg High 10-20 [facility] Basic Metabolic Profile (BMP )on 04-11-2025 BUN/CRE 42.1 RATIO High 10-20 [facility] Comment on above: Performed By: #### L 500.2500, L100.0100 ####[facility] [address] [place], [address] Calcium [Mass/Vol] 8.6 mg/dL Normal 7.6-11.0 [facility] Comment on above: Performed By: #### L 500.2500, L100.0100 ####[facility] [address] [place], [address] Chloride [Moles/Vol] 94 mmol/L Low 98-108 [facility] Comment on above: Performed By: #### L 500.2500, L100.0100 ####[facility] [address] [place], [address] CO2 [Moles/Vol] 33.4 mmol/L High 21.0-32.0 [facility] Comment on above: Performed By: #### L 500.2500, L100.0100 ####[facility] [address] [place], [address] Creatinine [Mass/Vol] 1.62 mg/dL High 0.70-1.20 [facility] Comment on above: Performed By: #### L 500.2500, L100.0100 ####[facility] [address] [place], [address] ECRCL 32.82 ml/min Low 50-250 [facility] Comment on above: Performed By: #### L 500.2500, L100.0100 ####[facility] [address] [place], [address] GAP 10 Normal 5-15 [facility] Comment on above: Performed By: #### L 500.2499, L100.0100 ####[facility] [address] [place], [address] GFR/1.73 sq M.predicted among non-blacks MDRD (S/P/Bld) [Vol rate/Area] 43 mL/min/{1.73_m2} Low >60 [facility] Comment on above: Result Comment: mL/m in/1.73m2 CKD-EPI Creatinine Equation (2020) Performed By: #### L 500.2500, L100.0100 ####[facility] [address] [place], [address] Glucose [Mass/Vol] 176 mg/dL High 70-99 [facility] Comment on above: Performed By: #### L 500.2500, L100.0100 ####[facility] [address] [place], [address] Potassium [Moles/Vol] 4.1 mmol/L Normal 3.3-5.1 [facility] Comment on above: Performed By: #### L 500.2500, L100.0100 ####[facility] [address] [place], [address] Sodium [Moles/Vol] 138 mmol/L Normal 133-145 [facility] Comment on above: Performed By: #### L 500.2500, L100.0100 ####[facility] [address] [place], [address] Urea nitrogen [Mass/Vol] 68 mg/dL High 4-19 [facility] Comment on above: Performed By: #### L 500.2500, L100.0100 ####[facility] [address] [place], [address] BUN Normal 4-19 [facility] Comment on above: Result Comment: Canc elled via OM: Order cancelled - Patient discharged Performed By: #### L 500.2500, L100.0100 ####[facility] [address] [place], [address] BUN/CRE Normal 10-20 [facility] Comment on above: Result Comment: Canc elled via OM: Order cancelled - Patient discharged Performed By: #### L 500.2500, L100.0100 ####[facility] [address] [place], [address] Calcium Normal 7.6-11.0 [facility] Comment on above: Result Comment: Canc elled via OM: Order cancelled - Patient discharged Performed By: #### L 500.2500, L100.0100 ####[facility] [address] [place], [address] CL Normal 98-108 [facility] Comment on above: Result Comment: Canc elled via OM: Order cancelled - Patient discharged Performed By: #### L 500.2500, L100.0100 ####[facility] [address] [place], [address] CO2 Normal 21.0-32.0 [facility] Comment on above: Result Comment: Canc elled via OM: Order cancelled - Patient discharged Performed By: #### L 500.2500, L100.0100 ####[facility] [address] [place], [address] CREAT,SERUM Normal 0.70-1.20 [facility] Comment on above: Result Comment: Canc elled via OM: Order cancelled - Patient discharged Performed By: #### L 500.2500, L100.0100 ####[facility] [address] [place], [address] eGFR Normal >60 [facility] Comment on above: Result Comment: Canc elled via OM: Order cancelled - Patient discharged Performed By: #### L 500.2500, L100.0100 ####[facility] [address] [place], [address] GAP Normal 5-15 [facility] Comment on above: Result Comment: Canc elled via OM: Order cancelled - Patient discharged Performed By: #### L 500.2500, L100.0100 ####[facility] [address] [place], [address] GLU Normal 70-99 [facility] Comment on above: Result Comment: Canc elled via OM: Order cancelled - Patient discharged Performed By: #### L 500.2500, L100.0100 ####[facility] [address] [place], [address] Potassium Normal 3.3-5.1 [facility] Comment on above: Result Comment: Canc elled via OM: Order cancelled - Patient discharged Performed By: #### L 500.2500, L100.0100 ####[facility] [address] [place], [address] Basic Metabolic Profile (BMP) Normal 133-145 [facility] Comment on above: Result Comment: Canc elled via OM: Order cancelled - Patient discharged Performed By: #### L 500.2500, L100.0100 ####[facility] [address] [place], [address] Basophil percentageOrdered B y: Valdez Olivo on 04-11-2025 Basophils/100 WBC (Bld) 0.1 % 0-1 [facility] Bedside Glucoseon 04-11-2025 FINGERSTICK GLU 323 mg/dL High 74-106 [facility] Comment on above: Result Comment: KODY GEMENT OF PATIENT CARE PER NURSING PROTOCOL Performed By: #### L 501.080 ####[facility] [address] [place], [address] FINGERSTICK GLU 166 mg/dL High -106 [facility] Comment on above: Result Comment: KODY GEMENT OF PATIENT CARE PER NURSING PROTOCOL Performed By: #### L 501.080 ####[facility] [address] [place], [address] FINGERSTICK GLU 273 mg/dL High [facility]106 [facility] Comment on above: Result Comment: KODY GEMENT OF PATIENT CARE PER NURSING PROTOCOL Performed By: #### L 501.080 ####[facility] [address] [place], [address] CBC W/Diff, Automatedon 03-21 Absolute Lymph 0.34 X10 3/uL Low 0.83-4.51 [facility] Comment on above: Performed By: #### L 500.2500, L100.0100 ####[facility] [address] [place], [address] Absolute Neut 9.0 X10 3/uL High 2.0-7.7 [facility] Comment on above: Performed By: #### L 500.2500, L100.0100 ####[facility] [address] [place], [address] Basophils/100 WBC (Bld) 0.1 % Normal 0-1 [facility] Comment on above: Performed By: #### L 500.2500, L100.0100 ####[facility] [address] [place], [address] Eosinophils/100 WBC (Bld) 0.0 % Normal 0-5 [facility] Comment on above: Performed By: #### L 500.2500, L100.0100 ####[facility] [address] [place], [address] Erythrocyte distribution width (RBC) [Ratio] 16.6 % High 11.6-14.6 [facility] Comment on above: Performed By: #### L 500.2500, L100.0100 ####[facility] [address] [place], [address] Hematocrit (Bld) [Volume fraction] 28.4 % Low 40-54 [facility] Comment on above: Performed By: #### L 500.2500, L100.0100 ####[facility] [address] [place], [address] Hemoglobin (Bld) [Mass/Vol] 8.7 g/dL Low 13.0-16.5 [facility] Comment on above: Performed By: #### L 500.2500, L100.0100 ####[facility] [address] [place], [address] IG% 0.600 Normal 0.0-0.9 [facility] Comment on above: Result Comment: IG% - Immature Granulocytes (promyelocytes, myelocytes andmetamyelocytes) > 1% indicates that a LEFT SHIFT is Present. Performed By: #### L 500.2500, L100.0100 ####[facility] [address] [place], [address] Lymphocytes/100 WBC (Bld) 3.3 % Low 19-41 [facility] Comment on above: Performed By: #### L 500.2500, L100.0100 ####[facility] [address] [place], [address] MCH (RBC) [Entitic mass] 26.7 pg Low 27.0-32.0 [facility] Comment on above: Performed By: #### L 500.2500, L100.0100 ####[facility] [address] [place], [address] MCHC (RBC) [Mass/Vol] 30.6 g/dL Low 32-36 [facility] Comment on above: Performed By: #### L 500.2500, L100.0100 ####[facility] [address] [place], [address] MCV (RBC) [Entitic vol] 87.1 fL Normal 80-94 [facility] Comment on above: Performed By: #### L 500.2500, L100.0100 ####[facility] [address] [place], [address] Monocytes/100 WBC (Bld) 8.7 % Normal 0-10 [facility] Comment on above: Performed By: #### L 500.2500, L100.0100 ####[facility] [address] [place], [address] Neutrophils/100 WBC (Bld) 87.3 % High 47-70 [facility] Comment on above: Performed By: #### L 500.2500, L100.0100 ####[facility] [address] [place], [address] Nucleated RBC (Bld) [#/Vol] 0 10*3/uL Normal 0-5 [facility] Comment on above: Performed By: #### L 500.2500, L100.0100 ####[facility] [address] [place], [address] Platelet mean volume (Bld) [Entitic vol] 10.2 fL Normal 6.2-12.0 [facility] Comment on above: Performed By: #### L 500.2500, L100.0100 ####[facility] [address] [place], [address] Platelets (Bld) [#/Vol] 186 10*3/uL Normal 150-450 [facility] Comment on above: Performed By: #### L 500.2500, L100.0100 ####[facility] [address] [place], [address] RBC (Bld) [#/Vol] 3.26 10*6/uL Low 4.6-6.2 [facility] Comment on above: Performed By: #### L 500.2500, L100.0100 ####[facility] [address] [place], [address] RDW SD 52.9 fl High 35.1-43.9 [facility] Comment on above: Performed By: #### L 500.2500, L100.0100 ####[facility] [address] [place], [address] WBC (Bld) [#/Vol] 10.3 10*3/uL Normal 4.4-11.0 [facility] Comment on above: Performed By: #### L 500.2500, L100.0100 ####[facility] [address] [place], [address] Absolute Neut Normal 2.0-7.7 [facility] Comment on above: Result Comment: Canc elled via OM: Order cancelled - Patient discharged Performed By: #### L 500.2500, L100.0100 ####[facility] [address] [place], [address] HCT Normal 40-54 [facility] Comment on above: Result Comment: Canc elled via OM: Order cancelled - Patient discharged Performed By: #### L 500.2500, L100.0100 ####[facility] [address] [place], [address] HGB Normal 13.0-16.5 [facility] Comment on above: Result Comment: Canc elled via OM: Order cancelled - Patient discharged Performed By: #### L 500.2500, L100.0100 ####[facility] [address] [place], [address] MCH Normal 27.0-32.0 [facility] Comment on above: Result Comment: Canc elled via OM: Order cancelled - Patient discharged Performed By: #### L 500.2500, L100.0100 ####[facility] [address] [place], [address] MCHC Normal 32-36 [facility] Comment on above: Result Comment: Canc elled via OM: Order cancelled - Patient discharged Performed By: #### L 500.2500, L100.0100 ####[facility] [address] [place], [address] MCV Normal 80-94 [facility] Comment on above: Result Comment: Canc elled via OM: Order cancelled - Patient discharged Performed By: #### L 500.2500, L100.0100 ####[facility] [address] [place], [address] NEUT% Normal 47-70 [facility] Comment on above: Result Comment: Canc elled via OM: Order cancelled - Patient discharged Performed By: #### L 500.2500, L100.0100 ####[facility] [address] [place], [address] PLT Normal 150-450 [facility] Comment on above: Result Comment: Canc elled via OM: Order cancelled - Patient discharged Performed By: #### L 500.2500, L100.0100 ####[facility] [address] [place], [address] RBC Normal 4.6-6.2 [facility] Comment on above: Result Comment: Canc elled via OM: Order cancelled - Patient discharged Performed By: #### L 500.2500, L100.0100 ####[facility] [address] [place], [address] RDW CV Normal 11.6-14.6 [facility] Comment on above: Result Comment: Canc elled via OM: Order cancelled - Patient discharged Performed By: #### L 500.2500, L100.0100 ####[facility] [address] [place], [address] RDW SD Normal 35.1-43.9 [facility] Comment on above: Result Comment: Canc elled via OM: Order cancelled - Patient discharged Performed By: #### L 500.2500, L100.0100 ####[facility] [address] [place], [address] WBC Normal 4.4-11.0 [facility] Comment on above: Result Comment: Canc elled via OM: Order cancelled - Patient discharged Performed By: #### L 500.2500, L100.0100 ####[facility] [address] [place], [address] COVID 19 AG RAPID (KHURRAM Becerril)on 04-11-2025 SARS-CoV-2 (COVID-19) RNA BRYAN+probe Ql (Unsp spec) Normal [facility] Comment on above: Performed By: #### M 100.505 ####[facility] [address] [place], [address] COVID-19 virus antigen assay Ordered By: Valdez Olivo on 04-11-2025 SARS-CoV-2 (COVID-19) Ag IA.rapid Ql (Resp) [facility] Carbon dioxide, total [Moles /volume] in Central venous bloodOrdered By: Valdez Olivo on 04-11-2025 CO2 [Moles/Vol] 33.4 mmol/L High 21.0-32.0 [facility] Chloride assayOrdered By: Aiden Olivo on 04-11-2025 Chloride [Moles/Vol] 94 mmol/L Low 98-108 [facility] Eosinophil percentageOrdered By: Valdez Olivo on 04-11-2025 Eosinophils/100 WBC (Bld) 0.0 % 0-5 [facility] Erythrocyte distribution wid th ratioOrdered By: Valdez Olivo on 04-11-2025 Erythrocyte distribution width (RBC) [Ratio] 16.6 % High 11.6-14.6 [facility] Erythrocyte distribution wid th standard deviationOrdered By: Valdez Olivo on 04-11-2025 Erythrocyte distribution width (RBC) [Ratio] 52.9 fl High 35.1-43.9 [facility] Glomerular filtration rate ( GFR) estimation/1.73 sq m using serum, plasma, or whole bOrdered By: Valdez Olivo on 04-11-2025 GFR/1.73 sq M.predicted among non-blacks MDRD (S/P/Bld) [Vol rate/Area] 43 mL/min/{1.73_m2} Low >60 [facility] Gram Stainon 04-11-2025 GS Centrifuged Specimen ? Culture performed on centrifuged specimen Gram Stain 1+ White Blood Cells No organisms seen Normal [facility] Comment on above: Performed By: #### L 200.0200, M100.2900, M100.2000, M100.4001, L350.1000 ####[facility] [address] [place], [place], [id number] Hematocrit Auto (Bld) [Volum e fraction]Ordered By: Valdez Olivo on 04-11-2025 Hematocrit (Bld) [Volume fraction] 28.4 % Low 40-54 [facility] Hemoglobin measurementOrdere d By: Valdez Olivo on 04-11-2025 Hemoglobin (Bld) [Mass/Vol] 8.7 g/dL Low 13.0-16.5 [facility] Immature granulocytes/100 WB C Auto (Bld)Ordered By: Valdez Olivo on 04-11-2025 Immature granulocytes/100 WBC (Bld) 0.600 % 0.0-0.9 [facility] MCV (mean corpuscular volume ) determinationOrdered By: Valdez Olivo on 04-11-2025 MCV (RBC) [Entitic vol] 87.1 fL 80-94 [facility] Mean corpuscular hemoglobin (MCH) determinationOrdered By: Valdez Olivo on 04-11-2025 MCH (RBC) [Entitic mass] 26.7 pg Low 27.0-32.0 [facility] Monocyte percentageOrdered B y: Valdez Olivo on 04-11-2025 Monocytes/100 WBC (Bld) 8.7 % 0-10 [facility] Neutrophil percentageOrdered By: Valdez Olivo on 04-11-2025 Neutrophils/100 WBC (Bld) 87.3 % High 47-70 [facility] Platelet countOrdered By: Aiden Olivo on 04-11-2025 Platelets (Bld) [#/Vol] 186 10*3/uL 150-450 [facility] Potassium measurement (mass/ volume)Ordered By: Valdez Olivo on 04-11-2025 Potassium (Unsp spec) [Mass/Vol] 4.1 mmol/L 3.3-5.1 [facility] RBC Auto (Bld) [#/Vol]Ordere d By: Valdez Olivo on 04-11-2025 RBC (Bld) [#/Vol] 3.26 10*6/uL Low 4.6-6.2 [facility] Serum creatinine measurement (mass/volume)Ordered By: Valdez Olivo on 04-11-2025 Creatinine [Mass/Vol] 1.62 mg/dL High 0.70-1.20 [facility] Serum glucose measurement (m ass/volume)Ordered By: Valdez Olivo on 04-11-2025 Glucose [Mass/Vol] 176 mg/dL High 70-99 [facility] Serum or plasma calcium kingsley urement (mass/volume)Ordered By: Valdez Olivo on 04-11-2025 Calcium [Mass/Vol] 8.6 mg/dL 7.6-11.0 [facility] Serum or plasma urea nitroge n measurement (mass/volume)Ordered By: Valdez Olivo on 04-11-2025 Urea nitrogen [Mass/Vol] 68 mg/dL High 4-19 [facility] Sodium levelOrdered By: Valdez Olivo on 04-11-2025 Sodium [Moles/Vol] 138 mmol/L 133-145 [facility] White blood cell (WBC) count Ordered By: Valdez Olivo on 04-11-2025 WBC (Bld) [#/Vol] 10.3 10*3/uL 4.4-11.0 [facility] Absolute lymphocyte countOrd ered By: Nicola Roman on 04-10-2025 Lymphocytes Auto (Unsp spec) [#/Vol] 0.17 10*3/uL Low 0.83-4.51 [facility] Activated partial thrombopla stin time (aPTT) in platelet poor plasma by coagulation aOrdered By: Nicola Marroquin on 04-10-2025 aPTT Coag (PPP) [Time] 29.5 s 24.1-36.2 [facility] Anaerobic cultureOrdered By: Nicola Roman on 04-10-2025 Bacteria identified Anaer cx Nom (Unsp spec) No anaerobic bacteria isolated. [facility] Anion gap in Serum or Plasma Ordered By: Nicola Roman on 04-10-2025 Anion gap [Moles/Vol] 12 mmol/L 5-15 [facility] Automated lymphocyte count a s percentage of total leukocytesOrdered By: Nicola Roman on 04-10-2025 Lymphocytes/100 WBC Auto (Unsp spec) 1.9 % Low 19-41 [facility] BUN/creatinine ratioOrdered By: Nicola Roman on 04-10-2025 Urea nitrogen/Creatinine [Mass ratio] 44.4 mg/mg High 10-20 [facility] Basic Metabolic Profile (BMP )on 04-10-2025 BUN/CRE 44.4 RATIO High 10- [facility] Comment on above: Performed By: #### L 100.0100, L500.2500 ####[facility] [address] [place], [place], [id number] Calcium [Mass/Vol] 8.4 mg/dL Normal 7.6-11.0 [facility] Comment on above: Performed By: #### L 100.0100, L500.2500 ####[facility] [address] [place], [address] Chloride [Moles/Vol] 92 mmol/L Low 98-108 [facility] Comment on above: Performed By: #### L 100.0100, L500.2500 ####[facility] [address] [place], [address] CO2 [Moles/Vol] 32.1 mmol/L High 21.0-32.0 [facility] Comment on above: Performed By: #### L 100.0100, L500.2500 ####[facility] [address] [place], [address] Creatinine [Mass/Vol] 1.71 mg/dL High 0.70-1.20 [facility] Comment on above: Performed By: #### L 100.0100, L500.2500 ####[facility] [address] [place], [address] ECRCL 31.09 ml/min Low 50-250 [facility] Comment on above: Performed By: #### L 100.0100, L500.2500 ####[facility] [address] [place], [address] GAP 12 Normal 5-15 [facility] Comment on above: Performed By: #### L 100.0100, L500.2500 ####[facility] [address] [place], [address] GFR/1.73 sq M.predicted among non-blacks MDRD (S/P/Bld) [Vol rate/Area] 40 mL/min/{1.73_m2} Low >60 [facility] Comment on above: Result Comment: mL/m in/1.73m2 CKD-EPI Creatinine Equation (2020) Performed By: #### L 100.0100, L500.2500 ####[facility] [address] [place], [address] Glucose [Mass/Vol] 244 mg/dL High 70-99 [facility] Comment on above: Performed By: #### L 100.0100, L500.2500 ####[facility] [address] [place], [address] Potassium [Moles/Vol] 4.1 mmol/L Normal 3.3-5.1 [facility] Comment on above: Performed By: #### L 100.0100, L500.2500 ####[facility] [address] [place], [address] Sodium [Moles/Vol] 137 mmol/L Normal 133-145 [facility] Comment on above: Performed By: #### L 100.0100, L500.2500 ####[facility] [address] [place], [address] Urea nitrogen [Mass/Vol] 76 mg/dL High 4-19 [facility] Comment on above: Performed By: #### L 100.0100, L500.2500 ####[facility] [address] [place], [address] Basophil percentageOrdered B y: Nicola Roman on 04-10-2025 Basophils/100 WBC (Bld) 0.1 % 0-1 [facility] Bedside Glucoseon 04-10-2025 FINGERSTICK GLU 341 mg/dL High 74-106 [facility] Comment on above: Result Comment: KODY GEMENT OF PATIENT CARE PER NURSING PROTOCOL Performed By: #### L 501.080 ####[facility] [address] [place], [address] FINGERSTICK GLU 327 mg/dL High 74-106 [facility] Comment on above: Result Comment: KODY GEMENT OF PATIENT CARE PER NURSING PROTOCOL Performed By: #### L 501.080 ####[facility] [address] [place], [address] FINGERSTICK GLU 346 mg/dL High 74-106 [facility] Comment on above: Result Comment: KODY GEMENT OF PATIENT CARE PER NURSING PROTOCOL Performed By: #### L 501.080 ####[facility] [address] [place], [address] FINGERSTICK GLU 236 mg/dL High 74-106 [facility] Comment on above: Result Comment: KODY GEMENT OF PATIENT CARE PER NURSING PROTOCOL Performed By: #### L 501.080 ####[facility] [address] [place], [address] Body Fluid Cell Count+Diffon 04-10-2025 PATH COMM/BF Reviewed Normal [facility] Comment on above: Order Comment: The r eference range and other method performancespecifications have not been established for this bodyfluid. The test must be integrated into the clinicalcontext for interpretation. Result Comment: DRUG INSPECTOR MYRANDA INFLAMMATORY CELLS. OCCASIONAL MESOTHELIAL CELLSNOTED. NO MALIGNANT CELLS IDENTIFIED.Ludmila GOMEZ MD 04/10/25 @1730 AMENDED REPORT 04/10/25 173 PATH COMM/BF previously reported as: May follow Performed By: #### L 200.0200, M100.2900, M100.2000, M100.4001, L350.1000 ####[facility] [address] [place], [address] Body fluid appearance (nomin al result)Ordered By: Nicola Roman on 04-10-2025 Appearance (Body fld) CLEAR [facility] Body fluid color determinati onOrdered By: Nicola Roman on 04-10-2025 Color (Body fld) YELLOW [facility] Body fluid cultureOrdered By : Nicola Roman on 04-10-2025 Microbial culture, body fluid Culture exhibits no growth. [facility] Body fluid lactate dehydroge nase measurement (enzymatic activity/volume) by pyruvateOrdered By: Nicola Roman on 04-10-2025 LDH Pyruvate to lactate reaction (Body fld) [Catalytic activity/Vol] 61 Units/L Not Establ. [facility] Body fluid leukocytes count (number/volume)Ordered By: Nicola Roman on 04-10-2025 WBC (Body fld) [#/Vol] 0.128 10*3/uL [facility] Body fluid lymphocytes/100 l eukocytesOrdered By: Nicola Roman on 04-10-2025 Lymphocytes/100 WBC (Body fld) 44 % [facility] Body fluid macrophage countO rdered By: Nicola Roman on 04-10-2025 Macrophages (Body fld) [#/Vol] 41 % [facility] Body fluid mononuclear cell percentageOrdered By: Nicola Roman on 04-10-2025 Mononuclear cells/100 WBC (Body fld) 94.6 % [facility] Body fluid protein measureme nt (mass/volume)Ordered By: Nicola Roman on 04-10-2025 Protein (Body fld) [Mass/Vol] 2.1 g/dL Not Establ. [facility] Body fluid segmented neutrop hils count (number/volume)Ordered By: Nicola Roman on 04-10-2025 Segmented neutrophils (Body fld) [#/Vol] 6 % [facility] Body fluid total cell countO rdered By: Nicola Roman on 04-10-2025 Cells Counted Total (Body fld) [#] 0.154 10^3/ul [facility] CBC W/Diff, Automatedon 03-21 Absolute Lymph 0.17 X10 3/uL Low 0.83-4.51 [facility] Comment on above: Performed By: #### L 100.0100, L500.2500 ####[facility] [address] [place], [address] Absolute Neut 8.2 X10 3/uL High 2.0-7.7 [facility] Comment on above: Performed By: #### L 100.0100, L500.2500 ####[facility] [address] [place], [address] Basophils/100 WBC (Bld) 0.1 % Normal 0-1 [facility] Comment on above: Performed By: #### L 100.0100, L500.2500 ####[facility] [address] [place], [address] Eosinophils/100 WBC (Bld) 0.0 % Normal 0-5 [facility] Comment on above: Performed By: #### L 100.0100, L500.2500 ####[facility] [address] [place], [address] Erythrocyte distribution width (RBC) [Ratio] 17.1 % High 11.6-14.6 [facility] Comment on above: Performed By: #### L 100.0100, L500.2500 ####[facility] [address] [place], [address] Hematocrit (Bld) [Volume fraction] 28.2 % Low 40-54 [facility] Comment on above: Performed By: #### L 100.0100, L500.2500 ####[facility] [address] [place], [address] Hemoglobin (Bld) [Mass/Vol] 8.7 g/dL Low 13.0-16.5 [facility] Comment on above: Performed By: #### L 100.0100, L500.2500 ####[facility] [address] [place], [address] IG% 0.900 Normal 0.0-0.9 [facility] Comment on above: Result Comment: IG% - Immature Granulocytes (promyelocytes, myelocytes andmetamyelocytes) > 1% indicates that a LEFT SHIFT is Present. Performed By: #### L 100.0100, L500.2500 ####[facility] [address] [place], [address] Lymphocytes/100 WBC (Bld) 1.9 % Low 19-41 [facility] Comment on above: Performed By: #### L 100.0100, L500.2500 ####[facility] [address] [place], [address] MCH (RBC) [Entitic mass] 26.9 pg Low 27.0-32.0 [facility] Comment on above: Performed By: #### L 100.0100, L500.2500 ####[facility] [address] [place], [address] MCHC (RBC) [Mass/Vol] 30.9 g/dL Low 32-36 [facility] Comment on above: Performed By: #### L 100.0100, L500.2500 ####[facility] [address] [place], [address] MCV (RBC) [Entitic vol] 87.0 fL Normal 80-94 [facility] Comment on above: Performed By: #### L 100.0100, L500.2500 ####[facility] [address] [place], [address] Monocytes/100 WBC (Bld) 5.5 % Normal 0-10 [facility] Comment on above: Performed By: #### L 100.0100, L500.2500 ####[facility] [address] [place], [address] Neutrophils/100 WBC (Bld) 91.6 % High 47-70 [facility] Comment on above: Performed By: #### L 100.0100, L500.2500 ####[facility] [address] [place], [address] Nucleated RBC (Bld) [#/Vol] 0.2 10*3/uL Normal 0-5 [facility] Comment on above: Performed By: #### L 100.0100, L500.2500 ####[facility] [address] [place], [address] Platelet mean volume (Bld) [Entitic vol] 10.0 fL Normal 6.2-12.0 [facility] Comment on above: Performed By: #### L 100.0100, L500.2500 ####[facility] [address] [place], [address] Platelets (Bld) [#/Vol] 208 10*3/uL Normal 150-450 [facility] Comment on above: Performed By: #### L 100.0100, L500.2500 ####[facility] [address] [place], [address] RBC (Bld) [#/Vol] 3.24 10*6/uL Low 4.6-6.2 [facility] Comment on above: Performed By: #### L 100.0100, L500.2500 ####[facility] [address] [place], [address] RDW SD 53.5 fl High 35.1-43.9 [facility] Comment on above: Performed By: #### L 100.0100, L500.2500 ####[facility] [address] [place], [address] WBC (Bld) [#/Vol] 9.0 10*3/uL Normal 4.4-11.0 [facility] Comment on above: Performed By: #### L 100.0100, L500.2500 ####[facility] [address] [place], [address] Carbon dioxide, total [Moles /volume] in Central venous bloodOrdered By: Nicola Roman on 04-10-2025 CO2 [Moles/Vol] 32.1 mmol/L High 21.0-32.0 [facility] Chest without Contraston Chest without Contrast Normal [facility] Chloride assayOrdered By: Stephen Roman on 04-10-2025 Chloride [Moles/Vol] 92 mmol/L Low 98-108 [facility] Cytology report of Body flui d Cyto stainOrdered By: Nicola Roman on 04-10-2025 Cytology report Cyto stain Doc (Body fld) SEE PATHOLOGY REPORT [facility] Cytology, Body Fluid / CSFon 04-10-2025 CYTOLOGY,BF/CSF SEE PATHOLOGY REPORT Normal [facility] Comment on above: Result Comment: Spec imen submitted to Anatomical Pathology Department fortesting. Performed By: #### L 200.0200, M100.2900, M100.2000, M100.4001, L350.1000 ####[facility] [address] [place], [place], [id number] Eosinophil percentageOrdered By: Nicola Roman on 04-10-2025 Eosinophils/100 WBC (Bld) 0.0 % 0-5 [facility] Erythrocyte distribution wid th ratioOrdered By: Nicola Roman on 04-10-2025 Erythrocyte distribution width (RBC) [Ratio] 17.1 % High 11.6-14.6 [facility] Erythrocyte distribution wid th standard deviationOrdered By: Nicola Roman on 04-10-2025 Erythrocyte distribution width (RBC) [Ratio] 53.5 fl High 35.1-43.9 [facility] Glomerular filtration rate ( GFR) estimation/1.73 sq m using serum, plasma, or whole bOrdered By: Nicola Roman on 04-10-2025 GFR/1.73 sq M.predicted among non-blacks MDRD (S/P/Bld) [Vol rate/Area] 40 mL/min/{1.73_m2} Low >60 [facility] deOrdered By: Nicola Roman on 04-10-2025 Glucose [Mass/Vol] 327 mg/dL High 74-106 [facility] Glucose, Body Fluidon 2024 GLUC, BODY FLD 274 mg/dL Normal Not Establ. [facility] Comment on above: Performed By: #### L 504.0250, L503.0100, L503.0300 ####[facility] [address] [place], [place], [id number] Gram stainOrdered By: Nicola Roman on 04-10-2025 Microscopic observation Gram stain Nom (Unsp spec) [facility] Hematocrit Auto (Bld) [Volum e fraction]Ordered By: Nicola Roman on 04-10-2025 Hematocrit (Bld) [Volume fraction] 28.2 % Low 40-54 [facility] Hemoglobin measurementOrdere d By: Nicola Roman on 04-10-2025 Hemoglobin (Bld) [Mass/Vol] 8.7 g/dL Low 13.0-16.5 [facility] Immature granulocytes/100 WB C Auto (Bld)Ordered By: Nicola Roman on 04-10-2025 Immature granulocytes/100 WBC (Bld) 0.900 % 0.0-0.9 [facility] LDHon 04-10-2025 LDH 179 U/L Normal 87-241 [facility] Comment on above: Order Comment: FG1 3 O Performed By: #### L 504.2610 ####[facility] [address] [place], [address] LDH,Body Fluidon 04-10-2025 LDH,BF 61 Units/L Normal Not Establ. [facility] Comment on above: Performed By: #### L 504.0250, L503.0100, L503.0300 ####[facility] [address] [place], [address] MCV (mean corpuscular volume ) determinationOrdered By: Nicola Roman on 04-10-2025 MCV (RBC) [Entitic vol] 87.0 fL 80-94 [facility] Mean corpuscular hemoglobin (MCH) determinationOrdered By: Nicola Roman on 04-10-2025 MCH (RBC) [Entitic mass] 26.9 pg Low 27.0-32.0 [facility] Monocyte detectionOrdered By : Nicola Roman on 04-10-2025 Monocytes/100 WBC (Bld) 9 % [facility] Monocyte percentageOrdered B y: Nicola Roman on 04-10-2025 Monocytes/100 WBC (Bld) 5.5 % 0-10 [facility] Neutrophil percentageOrdered By: Nicola Roman on 04-10-2025 Neutrophils/100 WBC (Bld) 91.6 % High 47-70 [facility] No Panel InformationOrdered By: Nicola Roman on 04-10-2025 495 /mm3 [facility] SEE COMMENT [facility] Pacemaker Checkon 04-10-2025 Pacemaker Check Normal [facility] Partial Thromboplast Timeon 04-10-2025 aPTT Coag (Bld) [Time] 29.5 s Normal 24.1-36.2 [facility] Comment on above: Performed By: #### L 300.3900, L300.4310 ####[facility] [address] [place], [address] Pathologist interpretation o f Body fluid testsOrdered By: Nicola Roman on 04-10-2025 Pathologist interpretation (Body fld) [Interp] Reviewed [facility] Platelet countOrdered By: Stephen Roman on 04-10-2025 Platelets (Bld) [#/Vol] 208 10*3/uL 150-450 [facility] Potassium measurement (mass/ volume)Ordered By: Nicola Roman on 04-10-2025 Potassium (Unsp spec) [Mass/Vol] 4.1 mmol/L 3.3-5.1 [facility] Protein, Body Fluidon 2024 Protein [Mass/Vol] 2.1 g/dL Normal Not Establ. [facility] Comment on above: Performed By: #### L 504.0250, L503.0100, L503.0300 ####[facility] [address] [place], [address] Prothrombin Time w/INRon INR Coag (PPP) [Relative time] 1.3 {INR} Normal [facility] Comment on above: Performed By: #### L 300.3900, L300.4310 ####[facility] [address] [place], [address] PT Coag (PPP) [Time] 16.7 s High 11.7-14.9 [facility] Comment on above: Performed By: #### L 300.3900, L300.4310 ####[facility] [address] [place], [place], [id number] Prothrombin timeOrdered By: Nicola Marroquin on 04-10-2025 PT Coag (PPP) [Time] 16.7 s High 11.7-14.9 [facility] RBC Auto (Bld) [#/Vol]Ordere d By: Nicola Roman on 04-10-2025 RBC (Bld) [#/Vol] 3.24 10*6/uL Low 4.6-6.2 [facility] Serum creatinine measurement (mass/volume)Ordered By: Nicola Roman on 04-10-2025 Creatinine [Mass/Vol] 1.71 mg/dL High 0.70-1.20 [facility] Serum glucose measurement (m ass/volume)Ordered By: Nicola Roman on 04-10-2025 Glucose [Mass/Vol] 244 mg/dL High 70-99 [facility] Serum or plasma calcium kingsley urement (mass/volume)Ordered By: Nicola Roman on 04-10-2025 Calcium [Mass/Vol] 8.4 mg/dL 7.6-11.0 [facility] Serum or plasma urea nitroge n measurement (mass/volume)Ordered By: Nicola Roman on 04-10-2025 Urea nitrogen [Mass/Vol] 76 mg/dL High 4-19 [facility] Sodium levelOrdered By: Jaspal Roman on 04-10-2025 Sodium [Moles/Vol] 137 mmol/L 133-145 [facility] Special Stain Group IIon Special Stain Group II Normal [facility] Comment on above: Performed By: #### P SSII ####[facility] [address] [place], [place], [id number] Specimen source identificati on of body fluidOrdered By: Nicola Roman on 04-10-2025 Specimen source Nom (Body fld) THORACENTESIS [facility] Thoracentesis W USon 025 Thoracentesis W US Normal [facility] White blood cell (WBC) count Ordered By: Nicola Roman on 04-10-2025 WBC (Bld) [#/Vol] 9.0 10*3/uL 4.4-11.0 [facility] 12 Lead EKGon 04-09-2025 12 Lead EKG Normal [facility] Basic Metabolic Profile (BMP )on 04-09-2025 BUN/CRE 37.7 RATIO High 10-20 [facility] Comment on above: Performed By: #### L 100.0100, L500.2500, L501.2300, L501.5200 ####[facility] [address] [place], [address] Calcium [Mass/Vol] 8.4 mg/dL Normal 7.6-11.0 [facility] Comment on above: Performed By: #### L 100.0100, L500.2500, L501.2300, L501.5200 ####[facility] [address] [place], [address] Chloride [Moles/Vol] 92 mmol/L Low 98-108 [facility] Comment on above: Performed By: #### L 100.0100, L500.2500, L501.2300, L501.5200 ####[facility] [address] [place], [address] CO2 [Moles/Vol] 31.9 mmol/L Normal 21.0-32.0 [facility] Comment on above: Performed By: #### L 100.0100, L500.2500, L501.2300, L501.5200 ####[facility] [address] [place], [address] Creatinine [Mass/Vol] 1.95 mg/dL High 0.70-1.20 [facility] Comment on above: Performed By: #### L 100.0100, L500.2500, L501.2300, L501.5200 ####[facility] [address] [place], [address] ECRCL 27.26 ml/min Low 50-250 [facility] Comment on above: Performed By: #### L 100.0100, L500.2500, L501.2300, L501.5200 ####[facility] [address] [place], [address] GAP 12 Normal 5-15 [facility] Comment on above: Performed By: #### L 100.0100, L500.2500, L501.2300, L501.5200 ####[facility] [address] [place], [address] GFR/1.73 sq M.predicted among non-blacks MDRD (S/P/Bld) [Vol rate/Area] 34 mL/min/{1.73_m2} Low >60 [facility] Comment on above: Result Comment: mL/m in/1.73m2 CKD-EPI Creatinine Equation (2020) Performed By: #### L 100.0100, L500.2500, L501.2300, L501.5200 ####[facility] [address] [place], [address] Glucose [Mass/Vol] 232 mg/dL High 70-99 [facility] Comment on above: Performed By: #### L 100.0100, L500.2500, L501.2300, L501.5200 ####[facility] [address] [place], [address] Potassium [Moles/Vol] 3.9 mmol/L Normal 3.3-5.1 [facility] Comment on above: Performed By: #### L 100.0100, L500.2500, L501.2300, L501.5200 ####[facility] [address] [place], [address] Sodium [Moles/Vol] 135 mmol/L Normal 133-145 [facility] Comment on above: Performed By: #### L 100.0100, L500.2500, L501.2300, L501.5200 ####[facility] [address] [place], [address] Urea nitrogen [Mass/Vol] 74 mg/dL High 4-19 [facility] Comment on above: Performed By: #### L 100.0100, L500.2500, L501.2300, L501.5200 ####[facility] [address] [place], [address] Bedside Glucoseon 04-09-2025 FINGERSTICK GLU 316 mg/dL High 74-106 [facility] Comment on above: Result Comment: KODY GEMENT OF PATIENT CARE PER NURSING PROTOCOL Performed By: #### L 501.080 ####[facility] [address] [place], [address] FINGERSTICK GLU 209 mg/dL High 74-106 [facility] Comment on above: Result Comment: KODY GEMENT OF PATIENT CARE PER NURSING PROTOCOL Performed By: #### L 501.080 ####[facility] [address] [place], [address] FINGERSTICK GLU 273 mg/dL High 74-106 [facility] Comment on above: Result Comment: KODY GEMENT OF PATIENT CARE PER NURSING PROTOCOL Performed By: #### L 501.080 ####[facility] [address] [place], [address] CBC W/Diff, Automatedon 08- Absolute Lymph 0.19 X10 3/uL Low 0.83-4.51 [facility] Comment on above: Performed By: #### L 100.0100, L500.2500, L501.2300, L501.5200 ####[facility] [address] [place], [address] Absolute Neut 6.3 X10 3/uL Normal 2.0-7.7 [facility] Comment on above: Performed By: #### L 100.0100, L500.2500, L501.2300, L501.5200 ####[facility] [address] [place], [address] Basophils/100 WBC (Bld) 0.1 % Normal 0-1 [facility] Comment on above: Performed By: #### L 100.0100, L500.2500, L501.2300, L501.5200 ####[facility] [address] [place], [address] Eosinophils/100 WBC (Bld) 0.0 % Normal 0-5 [facility] Comment on above: Performed By: #### L 100.0100, L500.2500, L501.2300, L501.5200 ####[facility] [address] [place], [address] Erythrocyte distribution width (RBC) [Ratio] 16.9 % High 11.6-14.6 [facility] Comment on above: Performed By: #### L 100.0100, L500.2500, L501.2300, L501.5200 ####[facility] [address] [place], [address] Hematocrit (Bld) [Volume fraction] 27.7 % Low 40-54 [facility] Comment on above: Performed By: #### L 100.0100, L500.2500, L501.2300, L501.5200 ####[facility] [address] [place], [address] Hemoglobin (Bld) [Mass/Vol] 8.6 g/dL Low 13.0-16.5 [facility] Comment on above: Performed By: #### L 100.0100, L500.2500, L501.2300, L501.5200 ####[facility] [address] [place], [address] IG% 0.600 Normal 0.0-0.9 [facility] Comment on above: Result Comment: IG% - Immature Granulocytes (promyelocytes, myelocytes andmetamyelocytes) > 1% indicates that a LEFT SHIFT is Present. Performed By: #### L 100.0100, L500.2500, L501.2300, L501.5200 ####[facility] [address] [place], [address] Lymphocytes/100 WBC (Bld) 2.8 % Low 19-41 [facility] Comment on above: Performed By: #### L 100.0100, L500.2500, L501.2300, L501.5200 ####[facility] [address] [place], [address] MCH (RBC) [Entitic mass] 27.0 pg Normal 27.0-32.0 [facility] Comment on above: Performed By: #### L 100.0100, L500.2500, L501.2300, L501.5200 ####[facility] [address] [place], [address] MCHC (RBC) [Mass/Vol] 31.0 g/dL Low 32-36 [facility] Comment on above: Performed By: #### L 100.0100, L500.2500, L501.2300, L501.5200 ####[facility] [address] [place], [address] MCV (RBC) [Entitic vol] 87.1 fL Normal 80-94 [facility] Comment on above: Performed By: #### L 100.0100, L500.2500, L501.2300, L501.5200 ####[facility] [address] [place], [address] Monocytes/100 WBC (Bld) 4.7 % Normal 0-10 [facility] Comment on above: Performed By: #### L 100.0100, L500.2500, L501.2300, L501.5200 ####[facility] [address] [place], [address] Neutrophils/100 WBC (Bld) 91.8 % High 47-70 [facility] Comment on above: Performed By: #### L 100.0100, L500.2500, L501.2300, L501.5200 ####[facility] [address] [place], [address] Nucleated RBC (Bld) [#/Vol] 0.3 10*3/uL Normal 0-5 [facility] Comment on above: Performed By: #### L 100.0100, L500.2500, L501.2300, L501.5200 ####[facility] [address] [place], [address] Platelet mean volume (Bld) [Entitic vol] 10.1 fL Normal 6.2-12.0 [facility] Comment on above: Performed By: #### L 100.0100, L500.2500, L501.2300, L501.5200 ####[facility] [address] [place], [address] Platelets (Bld) [#/Vol] 203 10*3/uL Normal 150-450 [facility] Comment on above: Performed By: #### L 100.0100, L500.2500, L501.2300, L501.5200 ####[facility] [address] [place], [address] RBC (Bld) [#/Vol] 3.18 10*6/uL Low 4.6-6.2 [facility] Comment on above: Performed By: #### L 100.0100, L500.2500, L501.2300, L501.5200 ####[facility] [address] [place], [address] RDW SD 53.1 fl High 35.1-43.9 [facility] Comment on above: Performed By: #### L 100.0100, L500.2500, L501.2300, L501.5200 ####[facility] [address] [place], [address] WBC (Bld) [#/Vol] 6.9 10*3/uL Normal 4.4-11.0 [facility] Comment on above: Performed By: #### L 100.0100, L500.2500, L501.2300, L501.5200 ####[facility] [address] [place], [address] CVS/PACEMAKERon 04-09-2025 CVS/PACEMAKER Normal [facility] Chest 1 View (Portable)on Chest 1 View (Portable) Normal [facility] Electrocardiogram reportOrde red By: Orly Mitchell on 04-09-2025 EKG study [facility] Work Phone: Magnesiumon 04-09-2025 Magnesium [Mass/Vol] 2.2 mg/dL Normal 1.5-2.2 [facility] Comment on above: Performed By: #### L 100.0100, L500.2500, L501.2300, L501.5200 ####[facility] [address] [place], [address] Magnesium measurement (mass/ volume)Ordered By: Nicola Roman on 04-09-2025 Magnesium (Unsp spec) [Mass/Vol] 2.2 mg/dL 1.5-2.2 [facility] Phosphoruson 04-09-2025 Phosphate [Mass/Vol] 3.9 mg/dL Normal 2.7-4.5 [facility] Comment on above: Performed By: #### L 100.0100, L500.2500, L501.2300, L501.5200 ####[facility] [address] [place], [address] Basic Metabolic Profile (BMP )on 04-08-2025 BUN/CRE 33.8 RATIO High - [facility] Comment on above: Performed By: #### L 100.0100, L500.2500 ####[facility] [address] [place], [address] Calcium [Mass/Vol] 8.6 mg/dL Normal 7.6-11.0 [facility] Comment on above: Performed By: #### L 100.0100, L500.2500 ####[facility] [address] [place], [address] Chloride [Moles/Vol] 95 mmol/L Low 98-108 [facility] Comment on above: Performed By: #### L 100.0100, L500.2500 ####[facility] [address] [place], [address] CO2 [Moles/Vol] 32.0 mmol/L Normal 21.0-32.0 [facility] Comment on above: Performed By: #### L 100.0100, L500.2500 ####[facility] [address] [place], [address] Creatinine [Mass/Vol] 1.91 mg/dL High 0.70-1.20 [facility] Comment on above: Performed By: #### L 100.0100, L500.2500 ####[facility] [address] [place], [address] ECRCL 27.84 ml/min Low 50-250 [facility] Comment on above: Performed By: #### L 100.0100, L500.2500 ####[facility] [address] [place], [address] GAP 11 Normal 5-15 [facility] Comment on above: Performed By: #### L 100.0100, L500.2500 ####[facility] [address] [place], [address] GFR/1.73 sq M.predicted among non-blacks MDRD (S/P/Bld) [Vol rate/Area] 35 mL/min/{1.73_m2} Low >60 [facility] Comment on above: Result Comment: mL/m in/1.73m2 CKD-EPI Creatinine Equation (2020) Performed By: #### L 100.0100, L500.2500 ####[facility] [address] [place], [address] Glucose [Mass/Vol] 240 mg/dL High 70-99 [facility] Comment on above: Performed By: #### L 100.0100, L500.2500 ####[facility] [address] [place], [address] Potassium [Moles/Vol] 4.0 mmol/L Normal 3.3-5.1 [facility] Comment on above: Performed By: #### L 100.0100, L500.2500 ####[facility] [address] [place], [address] Sodium [Moles/Vol] 138 mmol/L Normal 133-145 [facility] Comment on above: Performed By: #### L 100.0100, L500.2500 ####[facility] [address] [place], [address] Urea nitrogen [Mass/Vol] 65 mg/dL High 4-19 [facility] Comment on above: Performed By: #### L 100.0100, L500.2500 ####[facility] [address] [place], [address] Bedside Glucoseon 04-08-2025 FINGERSTICK GLU 216 mg/dL High 74-106 [facility] Comment on above: Result Comment: KODY GEMENT OF PATIENT CARE PER NURSING PROTOCOL Performed By: #### L 501.080 ####[facility] [address] [place], [address] FINGERSTICK GLU 270 mg/dL High 74-106 [facility] Comment on above: Result Comment: KODY GEMENT OF PATIENT CARE PER NURSING PROTOCOL Performed By: #### L 501.080 ####[facility] [address] [place], [address] FINGERSTICK GLU 199 mg/dL High 74-106 [facility] Comment on above: Result Comment: KODY GEMENT OF PATIENT CARE PER NURSING PROTOCOL Performed By: #### L 501.080 ####[facility] [address] [place], [address] CBC W/Diff, Automatedon 08-2 0-2024 Absolute Lymph 0.24 X10 3/uL Low 0.83-4.51 [facility] Comment on above: Performed By: #### L 100.0100, L500.2500 ####[facility] [address] [place], [address] Absolute Neut 6.3 X10 3/uL Normal 2.0-7.7 [facility] Comment on above: Performed By: #### L 100.0100, L500.2500 ####[facility] [address] [place], [address] Basophils/100 WBC (Bld) 0.0 % Normal 0-1 [facility] Comment on above: Performed By: #### L 100.0100, L500.2500 ####[facility] [address] [place], [address] Eosinophils/100 WBC (Bld) 0.0 % Normal 0-5 [facility] Comment on above: Performed By: #### L 100.0100, L500.2500 ####[facility] [address] [place], [address] Erythrocyte distribution width (RBC) [Ratio] 17.2 % High 11.6-14.6 [facility] Comment on above: Performed By: #### L 100.0100, L500.2500 ####[facility] [address] [place], [address] Hematocrit (Bld) [Volume fraction] 27.0 % Low 40-54 [facility] Comment on above: Performed By: #### L 100.0100, L500.2500 ####[facility] [address] [place], [address] Hemoglobin (Bld) [Mass/Vol] 8.3 g/dL Low 13.0-16.5 [facility] Comment on above: Performed By: #### L 100.0100, L500.2500 ####[facility] [address] [place], [address] IG% 0.600 Normal 0.0-0.9 [facility] Comment on above: Result Comment: IG% - Immature Granulocytes (promyelocytes, myelocytes andmetamyelocytes) > 1% indicates that a LEFT SHIFT is Present. Performed By: #### L 100.0100, L500.2500 ####[facility] [address] [place], [address] Lymphocytes/100 WBC (Bld) 3.5 % Low 19-41 [facility] Comment on above: Performed By: #### L 100.0100, L500.2500 ####[facility] [address] [place], [address] MCH (RBC) [Entitic mass] 26.9 pg Low 27.0-32.0 [facility] Comment on above: Performed By: #### L 100.0100, L500.2500 ####[facility] [address] [place], [address] MCHC (RBC) [Mass/Vol] 30.7 g/dL Low 32-36 [facility] Comment on above: Performed By: #### L 100.0100, L500.2500 ####[facility] [address] [place], [address] MCV (RBC) [Entitic vol] 87.4 fL Normal 80-94 [facility] Comment on above: Performed By: #### L 100.0100, L500.2500 ####[facility] [address] [place], [address] Monocytes/100 WBC (Bld) 4.5 % Normal 0-10 [facility] Comment on above: Performed By: #### L 100.0100, L500.2500 ####[facility] [address] [place], [address] Neutrophils/100 WBC (Bld) 91.4 % High 47-70 [facility] Comment on above: Performed By: #### L 100.0100, L500.2500 ####[facility] [address] [place], [address] Nucleated RBC (Bld) [#/Vol] 0 10*3/uL Normal 0-5 [facility] Comment on above: Performed By: #### L 100.0100, L500.2500 ####[facility] [address] [place], [address] Platelet mean volume (Bld) [Entitic vol] 10.7 fL Normal 6.2-12.0 [facility] Comment on above: Performed By: #### L 100.0100, L500.2500 ####[facility] [address] [place], [address] Platelets (Bld) [#/Vol] 192 10*3/uL Normal 150-450 [facility] Comment on above: Performed By: #### L 100.0100, L500.2500 ####[facility] [address] [place], [address] RBC (Bld) [#/Vol] 3.09 10*6/uL Low 4.6-6.2 [facility] Comment on above: Performed By: #### L 100.0100, L500.2500 ####[facility] [address] [place], [address] RDW SD 54.2 fl High 35.1-43.9 [facility] Comment on above: Performed By: #### L 100.0100, L500.2500 ####[facility] [address] [place], [address] WBC (Bld) [#/Vol] 6.9 10*3/uL Normal 4.4-11.0 [facility] Comment on above: Performed By: #### L 100.0100, L500.2500 ####[facility] [address] [place], [address] Consultation - Cardiologyon 04-08-2025 Consultation - Cardiology Normal [facility] Basic Metabolic Profile (BMP )on 04-07-2025 BUN/CRE 26.3 RATIO High - [facility] Comment on above: Performed By: #### L 501.2300, L500.2500 ####[facility] [address] [place], [address] Calcium [Mass/Vol] 8.8 mg/dL Normal 7.6-11.0 [facility] Comment on above: Performed By: #### L 501.2300, L500.2500 ####[facility] [address] [place], [address] Chloride [Moles/Vol] 96 mmol/L Low 98-108 [facility] Comment on above: Performed By: #### L 501.2300, L500.2500 ####[facility] [address] [place], [address] CO2 [Moles/Vol] 29.8 mmol/L Normal 21.0-32.0 [facility] Comment on above: Performed By: #### L 501.2300, L500.2500 ####[facility] [address] [place], [address] Creatinine [Mass/Vol] 2.21 mg/dL High 0.70-1.20 [facility] Comment on above: Performed By: #### L 501.2300, L500.2500 ####[facility] [address] [place], [address] ECRCL 24.06 ml/min Low 50-250 [facility] Comment on above: Performed By: #### L 501.2300, L500.2500 ####[facility] [address] [place], [address] GAP 11 Normal 5-15 [facility] Comment on above: Performed By: #### L 501.2300, L500.2500 ####[facility] [address] [place], [address] GFR/1.73 sq M.predicted among non-blacks MDRD (S/P/Bld) [Vol rate/Area] 29 mL/min/{1.73_m2} Low >60 [facility] Comment on above: Result Comment: mL/m in/1.73m2 CKD-EPI Creatinine Equation (2020) Performed By: #### L 501.2300, L500.2500 ####[facility] [address] [place], [address] Glucose [Mass/Vol] 171 mg/dL High 70-99 [facility] Comment on above: Performed By: #### L 501.2300, L500.2500 ####[facility] [address] [place], [address] Potassium [Moles/Vol] 4.6 mmol/L Normal 3.3-5.1 [facility] Comment on above: Performed By: #### L 501.2300, L500.2500 ####[facility] [address] [place], [address] Sodium [Moles/Vol] 137 mmol/L Normal 133-145 [facility] Comment on above: Performed By: #### L 501.2300, L500.2500 ####[facility] [address] [place], [address] Urea nitrogen [Mass/Vol] 58 mg/dL High - [facility] Comment on above: Performed By: #### L 501.2300, L500.2500 ####[facility] [address] [place], [address] Bedside Glucoseon 04-07-2025 FINGERSTICK GLU 272 mg/dL High 74-106 [facility] Comment on above: Result Comment: KODY GEMENT OF PATIENT CARE PER NURSING PROTOCOL Performed By: #### L 501.080 ####[facility] [address] [place], [address] FINGERSTICK GLU 249 mg/dL High 74-106 [facility] Comment on above: Result Comment: KODY GEMENT OF PATIENT CARE PER NURSING PROTOCOL Performed By: #### L 501.080 ####[facility] [address] [place], [address] FINGERSTICK GLU 303 mg/dL High 74-106 [facility] Comment on above: Result Comment: KODY GEMENT OF PATIENT CARE PER NURSING PROTOCOL Performed By: #### L 501.080 ####[facility] [address] [place], [address] FINGERSTICK GLU 162 mg/dL High 74-106 [facility] Comment on above: Result Comment: KODY GEMENT OF PATIENT CARE PER NURSING PROTOCOL Performed By: #### L 501.080 ####[facility] [address] [place], [address] CBC W/Diff, Automatedon - Absolute Lymph 0.20 X10 3/uL Low 0.83-4.51 [facility] Comment on above: Performed By: #### L 100.0100 ####[facility] [address] [place], [address] Absolute Neut 5.9 X10 3/uL Normal 2.0-7.7 [facility] Comment on above: Performed By: #### L 100.0100 ####[facility] [address] [place], [address] Basophils/100 WBC (Bld) 0.2 % Normal 0-1 [facility] Comment on above: Performed By: #### L 100.0100 ####[facility] [address] [place], [address] Eosinophils/100 WBC (Bld) 0.0 % Normal 0-5 [facility] Comment on above: Performed By: #### L 100.0100 ####[facility] [address] [place], [address] Erythrocyte distribution width (RBC) [Ratio] 17.1 % High 11.6-14.6 [facility] Comment on above: Performed By: #### L 100.0100 ####[facility] [address] [place], [address] Hematocrit (Bld) [Volume fraction] 25.6 % Low 40-54 [facility] Comment on above: Performed By: #### L 100.0100 ####[facility] [address] [place], [address] Hemoglobin (Bld) [Mass/Vol] 8.0 g/dL Low 13.0-16.5 [facility] Comment on above: Performed By: #### L 100.0100 ####[facility] [address] [place], [address] IG% 1.400 High 0.0-0.9 [facility] Comment on above: Result Comment: IG% - Immature Granulocytes (promyelocytes, myelocytes andmetamyelocytes) > 1% indicates that a LEFT SHIFT is Present. Performed By: #### L 100.0100 ####[facility] [address] [place], [address] Lymphocytes/100 WBC (Bld) 3.1 % Low 19-41 [facility] Comment on above: Performed By: #### L 100.0100 ####[facility] [address] [place], [address] MCH (RBC) [Entitic mass] 27.0 pg Normal 27.0-32.0 [facility] Comment on above: Performed By: #### L 100.0100 ####[facility] [address] [place], [address] MCHC (RBC) [Mass/Vol] 31.3 g/dL Low 32-36 [facility] Comment on above: Performed By: #### L 100.0100 ####[facility] [address] [place], [address] MCV (RBC) [Entitic vol] 86.5 fL Normal 80-94 [facility] Comment on above: Performed By: #### L 100.0100 ####[facility] [address] [place], [address] Monocytes/100 WBC (Bld) 2.5 % Normal 0-10 [facility] Comment on above: Performed By: #### L 100.0100 ####[facility] [address] [place], [address] Neutrophils/100 WBC (Bld) 92.8 % High 47-70 [facility] Comment on above: Performed By: #### L 100.0100 ####[facility] [address] [place], [address] Nucleated RBC (Bld) [#/Vol] 0 10*3/uL Normal 0-5 [facility] Comment on above: Performed By: #### L 100.0100 ####[facility] [address] [place], [address] Platelet mean volume (Bld) [Entitic vol] 10.4 fL Normal 6.2-12.0 [facility] Comment on above: Performed By: #### L 100.0100 ####[facility] [address] [place], [address] Platelets (Bld) [#/Vol] 189 10*3/uL Normal 150-450 [facility] Comment on above: Performed By: #### L 100.0100 ####[facility] [address] [place], [address] RBC (Bld) [#/Vol] 2.96 10*6/uL Low 4.6-6.2 [facility] Comment on above: Performed By: #### L 100.0100 ####[facility] [address] [place], [address] RDW SD 53.1 fl High 35.1-43.9 [facility] Comment on above: Performed By: #### L 100.0100 ####[facility] [address] [place], [address] WBC (Bld) [#/Vol] 6.4 10*3/uL Normal 4.4-11.0 [facility] Comment on above: Performed By: #### L 100.0100 ####[facility] [address] [place], [address] Electrocardiogram reportOrde red By: Issa Looney on 04-07-2025 EKG study [facility] Work Phone: Phosphoruson 04-07-2025 Phosphate [Mass/Vol] 4.6 mg/dL High 2.7-4.5 [facility] Comment on above: Performed By: #### L 501.2300, L500.2500 ####[facility] [address] [place], [address] Bedside Glucoseon 04-06-2025 FINGERSTICK GLU 378 mg/dL High [facility]106 [facility] Comment on above: Result Comment: KODY GEMENT OF PATIENT CARE PER NURSING PROTOCOL Performed By: #### L 501.080 ####[facility] [address] [place], [address] FINGERSTICK GLU 168 mg/dL High [address] [place] [address] Comment on above: Result Comment: KODY GEMENT OF PATIENT CARE PER NURSING PROTOCOL Performed By: #### L 501.080 ####[facility] [address] [place], [address] FINGERSTICK GLU 140 mg/dL High [address] [place] [address] Comment on above: Result Comment: KODY GEMENT OF PATIENT CARE PER NURSING PROTOCOL Performed By: #### L 501.080 ####[facility] [address] [place], [address] FINGERSTICK GLU 116 mg/dL High [address] [place] [address] Comment on above: Result Comment: KODY GEMENT OF PATIENT CARE PER NURSING PROTOCOL Performed By: #### L 501.080 ####[facility] [address] [place], [address] FINGERSTICK GLU 112 mg/dL High [address] [place] [address] Comment on above: Result Comment: KODY GEMENT OF PATIENT CARE PER NURSING PROTOCOL Performed By: #### L 501.080 ####[facility] [address] [place], [address] Bilirubin, totalOrdered By: Nicola Madison on 04-06-2025 Bilirubin [Mass/Vol] 0.40 mg/dL 0.00-1.30 [facility] CBC W/Diff, Automatedon 03-20 Absolute Lymph 0.50 X10 3/uL Low 0.83-4.51 [facility] Comment on above: Performed By: #### L 100.0100 ####[facility] [address] [place], [address] Absolute Neut 6.4 X10 3/uL Normal 2.0-7.7 [facility] Comment on above: Performed By: #### L 100.0100 ####[facility] [address] [place], [address] Basophils/100 WBC (Bld) 0.5 % Normal 0-1 [facility] Comment on above: Performed By: #### L 100.0100 ####[facility] [address] [place], [address] Eosinophils/100 WBC (Bld) 0.5 % Normal 0-5 [facility] Comment on above: Performed By: #### L 100.0100 ####[facility] [address] [place], [address] Erythrocyte distribution width (RBC) [Ratio] 16.8 % High 11.6-14.6 [facility] Comment on above: Performed By: #### L 100.0100 ####[facility] [address] [place], [address] Hematocrit (Bld) [Volume fraction] 26.3 % Low 40-54 [facility] Comment on above: Performed By: #### L 100.0100 ####[facility] [address] [place], [address] Hemoglobin (Bld) [Mass/Vol] 7.9 g/dL Low 13.0-16.5 [facility] Comment on above: Performed By: #### L 100.0100 ####[facility] [address] [place], [address] IG% 0.600 Normal 0.0-0.9 [facility] Comment on above: Result Comment: IG% - Immature Granulocytes (promyelocytes, myelocytes andmetamyelocytes) > 1% indicates that a LEFT SHIFT is Present. Performed By: #### L 100.0100 ####[facility] [address] [place], [address] Lymphocytes/100 WBC (Bld) 6.4 % Low 19-41 [facility] Comment on above: Performed By: #### L 100.0100 ####[facility] [address] [place], [address] MCH (RBC) [Entitic mass] 26.9 pg Low 27.0-32.0 [facility] Comment on above: Performed By: #### L 100.0100 ####[facility] [address] [place], [address] MCHC (RBC) [Mass/Vol] 30.0 g/dL Low 32-36 [facility] Comment on above: Performed By: #### L 100.0100 ####[facility] [address] [place], [address] MCV (RBC) [Entitic vol] 89.5 fL Normal 80-94 [facility] Comment on above: Performed By: #### L 100.0100 ####[facility] [address] [place], [address] Monocytes/100 WBC (Bld) 10.1 % High 0-10 [facility] Comment on above: Performed By: #### L 100.0100 ####[facility] [address] [place], [address] Neutrophils/100 WBC (Bld) 81.9 % High 47-70 [facility] Comment on above: Performed By: #### L 100.0100 ####[facility] [address] [place], [address] Nucleated RBC (Bld) [#/Vol] 0 10*3/uL Normal 0-5 [facility] Comment on above: Performed By: #### L 100.0100 ####[facility] [address] [place], [address] Platelet mean volume (Bld) [Entitic vol] 10.4 fL Normal 6.2-12.0 [facility] Comment on above: Performed By: #### L 100.0100 ####[facility] [address] [place], [address] Platelets (Bld) [#/Vol] 178 10*3/uL Normal 150-450 [facility] Comment on above: Performed By: #### L 100.0100 ####[facility] [address] [place], [address] RBC (Bld) [#/Vol] 2.94 10*6/uL Low 4.6-6.2 [facility] Comment on above: Performed By: #### L 100.0100 ####[facility] [address] [place], [address] RDW SD 54.7 fl High 35.1-43.9 [facility] Comment on above: Performed By: #### L 100.0100 ####[facility] [address] [place], [address] WBC (Bld) [#/Vol] 7.8 10*3/uL Normal 4.4-11.0 [facility] Comment on above: Performed By: #### L 100.0100 ####[facility] [address] [place], [address] Chest 1 View (Portable)on Chest 1 View (Portable) Normal [facility] Comprehensive Metabolic Prof ilon 04-06-2025 Albumin [Mass/Vol] 3.3 g/dL Low 3.4-4.8 [facility] Comment on above: Performed By: #### L 503.7505, L500.4050, L501.2300 ####[facility] [address] [place], [address] Albumin/Globulin [Mass ratio] 0.9 {ratio} Normal 0.9-2.4 [facility] Comment on above: Performed By: #### L 503.7505, L500.4050, L501.2300 ####[facility] [address] [place], [address] ALK PHOS 70 U/L Normal 40-129 [facility] Comment on above: Performed By: #### L 503.7505, L500.4050, L501.2300 ####[facility] [address] [place], [address] ALT [Catalytic activity/Vol] 13 U/L Normal <=46 [facility] Comment on above: Performed By: #### L 503.7505, L500.4050, L501.2300 ####[facility] [address] [place], [address] AST [Catalytic activity/Vol] 19 U/L Normal <=37 [facility] Comment on above: Performed By: #### L 503.7505, L500.4050, L501.2300 ####[facility] [address] [place], [address] Bilirubin [Mass/Vol] 0.40 mg/dL Normal 0.00-1.30 [facility] Comment on above: Performed By: #### L 503.7505, L500.4050, L501.2300 ####[facility] [address] [place], [address] BUN/CRE 22.8 RATIO High 10-20 [facility] Comment on above: Performed By: #### L 503.7505, L500.4050, L501.2300 ####[facility] [address] [place], [address] Calcium [Mass/Vol] 8.8 mg/dL Normal 7.6-11.0 [facility] Comment on above: Performed By: #### L 503.7505, L500.4050, L501.2300 ####[facility] [address] [place], [address] Chloride [Moles/Vol] 100 mmol/L Normal 98-108 [facility] Comment on above: Performed By: #### L 503.7505, L500.4050, L501.2300 ####[facility] [address] [place], [address] CO2 [Moles/Vol] 27.9 mmol/L Normal 21.0-32.0 [facility] Comment on above: Performed By: #### L 503.7505, L500.4050, L501.2300 ####[facility] [address] [place], [address] Creatinine [Mass/Vol] 2.52 mg/dL High 0.70-1.20 [facility] Comment on above: Performed By: #### L 503.7505, L500.4050, L501.2300 ####[facility] [address] [place], [address] ECRCL 22.79 ml/min Low 50-250 [facility] Comment on above: Performed By: #### L 503.7505, L500.4050, L501.2300 ####[facility] [address] [place], [address] GAP 10 Normal 5-15 [facility] Comment on above: Performed By: #### L 503.7505, L500.4050, L501.2300 ####[facility] [address] [place], [address] GFR/1.73 sq M.predicted among non-blacks MDRD (S/P/Bld) [Vol rate/Area] 25 mL/min/{1.73_m2} Low >60 [facility] Comment on above: Result Comment: mL/m in/1.73m2 CKD-EPI Creatinine Equation (2020) Performed By: #### L 503.7505, L500.4050, L501.2300 ####[facility] [address] [place], [address] Globulin (S) [Mass/Vol] 3.5 g/dL Normal 2.2-4.2 [facility] Comment on above: Performed By: #### L 503.7505, L500.4050, L501.2300 ####[facility] [address] [place], [address] Glucose [Mass/Vol] 102 mg/dL High 70-99 [facility] Comment on above: Performed By: #### L 503.7505, L500.4050, L501.2300 ####[facility] [address] [place], [address] Potassium [Moles/Vol] 4.7 mmol/L Normal 3.3-5.1 [facility] Comment on above: Performed By: #### L 503.7505, L500.4050, L501.2300 ####[facility] [address] [place], [address] Sodium [Moles/Vol] 138 mmol/L Normal 133-145 [facility] Comment on above: Performed By: #### L 503.7505, L500.4050, L501.2300 ####[facility] [address] [place], [address] T PROT 6.8 g/dL Normal 5.9-8.4 [facility] Comment on above: Performed By: #### L 503.7505, L500.4050, L501.2300 ####[facility] [address] [place], [address] Urea nitrogen [Mass/Vol] 58 mg/dL High 4-19 [facility] Comment on above: Performed By: #### L 503.7505, L500.4050, L501.2300 ####[facility] [address] [place], [address] Consultation - Nephrologyon 04-06-2025 Consultation - Nephrology Normal [facility] Kidney and Bladderon 025 Kidney and Bladder Normal [facility] Natriuretic peptide.B prohor girish N-Terminal [Mass/volume] in Serum or PlasmaOrdered By: Nicola Madison on 04-06-2025 Natriuretic peptide.B prohormone N-Terminal [Mass/Vol] 4038 pg/mL High <1800 [facility] No Panel InformationOrdered By: Nicola Madison on 04-06-2025 19 U/L <38 [facility] Phosphoruson 04-06-2025 Phosphate [Mass/Vol] 5.4 mg/dL High 2.7-4.5 [facility] Comment on above: Performed By: #### L 503.7505, L500.4050, L501.2300 ####[facility] [address] [place], [address] Pro- Brain NATRIURETIC PEPTI Adrienne 04-06-2025 Natriuretic peptide B (Bld) [Mass/Vol] 4038 pg/mL High <=1800 [facility] Comment on above: Result Comment: Hear t Failure Unlikely: < 300 pg/mLHeart Failure Likely< 50 Years: > 450 pg/mL50-75 Years: > 900 pg/mL>75 Years: > 1800 pg/mL Performed By: #### L 503.7505, L500.4050, L501.2300 ####[facility] [address] [place], [address] Protein+Creatinine Ratio,Uri neon 04-06-2025 PROT:CRE RATIO 1660 mg/g CRE High 0-200 [facility] Comment on above: Performed By: #### L 501.0900 ####[facility] [address] [place], [place], [id number] UR CREAT 32.10 mg/dL Low 39.00-259. 00 [facility] Comment on above: Performed By: #### L 501.0900 ####[facility] [address] [facility] [place], [address] RESPIRATORY PANEL MOLECULARo n 04-06-2025 RP PANEL Normal [facility] Comment on above: Performed By: #### M 100.638 ####[facility] [address] [facility] [address] [place], [place], [id number] Random urine creatinine kingsley urement (mass/volume)Ordered By: Renae Sarabia on 04-06-2025 Creatinine Unsp time (U) [Mass/Vol] 32.10 mg/dL Low 39.00-259. 00 [facility] Respiratory pathogens detect ion panel by molecular detection methodOrdered By: Nicola Madison on 04-06-2025 Respiratory pathogens DNA and RNA panel BRYAN+probe (Resp) [facility] Serum globulin measurementOr dered By: Nicola Madison on 04-06-2025 Globulin (S) [Mass/Vol] 3.5 g/dL 2.2-4.2 [facility] Serum or plasma alanine ortiz otransferase (ALT) measurementOrdered By: Nicola Madison on 04-06-2025 ALT [Catalytic activity/Vol] 13 U/L <47 [facility] Serum or plasma albumin kingsley urement (mass/volume)Ordered By: Nicola Madison on 04-06-2025 Albumin [Mass/Vol] 3.3 g/dL Low 3.4-4.8 [facility] Serum or plasma albumin/glob ulin mass ratioOrdered By: Nicola Madison on 04-06-2025 Albumin/Globulin [Mass ratio] 0.9 {ratio} 0.9-2.4 [facility] Serum or plasma alkaline roosevelt sphatase measurementOrdered By: Nicola Madison on 04-06-2025 ALP [Catalytic activity/Vol] 70 U/L 40-129 [facility] Total proteinOrdered By: Jacob Madison on 04-06-2025 Protein [Mass/Vol] 6.8 g/dL 5.9-8.4 [facility] Urine protein measurement (m ass/volume)Ordered By: Renae Sarabia on 04-06-2025 Protein (U) [Mass/Vol] 53.3 mg/dL High 0.0-12.0 [facility] Comment on above: Performed By: #### L 501.0900 ####[facility] [address] [place], [place], [id number] Urine protein/creatinine mas s ratioOrdered By: Renae Sarabia on 04-06-2025 Protein/Creatinine (U) [Mass ratio] 1660 mg/g CRE High 0-200 [facility] 12 Lead EKGon 04-05-2025 12 Lead EKG Normal [facility] Absolute lymphocyte countOrd ered By: Ld Hayes on 04-05-2025 Lymphocytes Auto (Unsp spec) [#/Vol] 0.64 10*3/uL Low 0.83-4.51 [facility] Anion gap in Serum or Plasma Ordered By: Ld Hayes on 04-05-2025 Anion gap [Moles/Vol] 11 mmol/L 5-15 [facility] Assessment of wrist artery p atency prior to arterial punctureOrdered By: Nicola Madison on 04-05-2025 Arterial patency Wrist artery --pre arterial puncture Positive [facility] Automated lymphocyte count a s percentage of total leukocytesOrdered By: Ld Hayes on 04-05-2025 Lymphocytes/100 WBC Auto (Unsp spec) 7.3 % Low 19-41 [facility] BUN/creatinine ratioOrdered By: Ld Hayes on 04-05-2025 Urea nitrogen/Creatinine [Mass ratio] 23.2 mg/mg High 10-20 [facility] Basic Metabolic Profile (BMP )on 04-05-2025 BUN/CRE 23.2 RATIO High 10-20 [facility] Comment on above: Performed By: #### L 100.0100, L500.2500 ####[facility] [address] [place], [place], [id number] Calcium [Mass/Vol] 8.8 mg/dL Normal 7.6-11.0 [facility] Comment on above: Performed By: #### L 100.0100, L500.2500 ####[facility] [address] [place], [address] Chloride [Moles/Vol] 97 mmol/L Low 98-108 [facility] Comment on above: Performed By: #### L 100.0100, L500.2500 ####[facility] [address] [place], [address] CO2 [Moles/Vol] 26.7 mmol/L Normal 21.0-32.0 [facility] Comment on above: Performed By: #### L 100.0100, L500.2500 ####[facility] [address] [place], [address] Creatinine [Mass/Vol] 2.57 mg/dL High 0.70-1.20 [facility] Comment on above: Performed By: #### L 100.0100, L500.2500 ####[facility] [address] [place], [address] ECRCL 22.62 ml/min Low 50-250 [facility] Comment on above: Performed By: #### L 100.0100, L500.2500 ####[facility] [address] [place], [address] GAP 11 Normal 5-15 [facility] Comment on above: Performed By: #### L 100.0100, L500.2500 ####[facility] [address] [place], [address] GFR/1.73 sq M.predicted among non-blacks MDRD (S/P/Bld) [Vol rate/Area] 25 mL/min/{1.73_m2} Low >60 [facility] Comment on above: Result Comment: mL/m in/1.73m2 CKD-EPI Creatinine Equation (2020) Performed By: #### L 100.0100, L500.2500 ####[facility] [address] [place], [address] Glucose [Mass/Vol] 164 mg/dL High 70-99 [facility] Comment on above: Performed By: #### L 100.0100, L500.2500 ####[facility] [address] [place], [address] Potassium [Moles/Vol] 5.8 mmol/L High 3.3-5.1 [facility] Comment on above: Result Comment: Hemo lysis present, Results??could be affected.?? Performed By: #### L 100.0100, L500.2500 ####[facility] [address] [place], [address] Sodium [Moles/Vol] 134 mmol/L Normal 133-145 [facility] Comment on above: Performed By: #### L 100.0100, L500.2500 ####[facility] [address] [place], [address] Urea nitrogen [Mass/Vol] 60 mg/dL High 4-19 [facility] Comment on above: Performed By: #### L 100.0100, L500.2500 ####[facility] [address] [place], [address] Basophil percentageOrdered B y: Ld Hayes on 04-05-2025 Basophils/100 WBC (Bld) 0.6 % 0-1 [facility] Bedside Glucoseon 04-05-2025 FINGERSTICK GLU 76 mg/dL Normal 74-106 [facility] Comment on above: Result Comment: KODY GEMENT OF PATIENT CARE PER NURSING PROTOCOL Performed By: #### L 501.080 ####[facility] [address] [place], [address] FINGERSTICK GLU 147 mg/dL High 74-106 [facility] Comment on above: Result Comment: KODY GEMENT OF PATIENT CARE PER NURSING PROTOCOL Performed By: #### L 501.080 ####[facility] [address] [place], [address] Bilirubin Test strip Ql (U)O rdered By: Nicola Madison on 04-05-2025 Bilirubin Ql (U) Negative Negative [facility] Blood Gases by CPSon 025 EMILIA TEST Positive Normal [facility] Comment on above: Performed By: #### L 9000.0800 ####[facility] [address] [place], [address] Base excess Calc (Bld) [Moles/Vol] 7 mmol/L High -2 to +2 [facility] Comment on above: Performed By: #### L 9000.0800 ####[facility] [address] [place], [address] Blood Gas Type ART Normal [facility] Comment on above: Performed By: #### L 9000.0800 ####[facility] [address] [place], [address] CO2 [Moles/Vol] 34 mmol/L Normal [facility] Comment on above: Performed By: #### L 9000.0800 ####[facility] [address] [place], [address] FI02 6.0 Normal [facility] Comment on above: Performed By: #### L 9000.0800 ####[facility] [address] [place], [address] HCO3 (Bld) [Moles/Vol] 32.4 mmol/L High 22-26 [facility] Comment on above: Performed By: #### L 9000.0800 ####[facility] [address] [place], [address] Mode Not entered Normal [facility] Comment on above: Performed By: #### L 9000.0800 ####[facility] [address] [place], [address] O2 Delivery Dev Cannula Normal [facility] Comment on above: Performed By: #### L 9000.0800 ####[facility] [address] [place], [address] pCO2 57.1 mmHg High 35-45 [facility] Comment on above: Performed By: #### L 9000.0800 ####[facility] [address] [place], [address] pH (Bld) 7.36 [pH] Normal 7.35-7.45 [facility] Comment on above: Performed By: #### L 9000.0800 ####[facility] [address] [place], [address] PO2 71 mmHG Low 75-100 [facility] Comment on above: Performed By: #### L 9000.0800 ####[facility] [address] [place], [address] SITE R Radial Normal [facility] Comment on above: Performed By: #### L 9000.0800 ####[facility] [address] [place], [address] SO2 93 Low 95-99 [facility] Comment on above: Performed By: #### L 9000.0800 ####[facility] [address] [place], [address] Blood base excess determinat ionOrdered By: Nicola Madison on 04-05-2025 Base excess Calc (BldV) [Moles/Vol] 7 mmol/L High -2-2 [facility] Blood bicarbonate measuremen tOrdered By: Nicola Madison on 04-05-2025 HCO3 (Bld) [Moles/Vol] 32.4 mmol/L High 22-26 [facility] CBC W/Diff, Automatedon 03-20 Absolute Lymph 0.64 X10 3/uL Low 0.83-4.51 [facility] Comment on above: Performed By: #### L 100.0100, L500.2500 ####[facility] [address] [place], [address] Absolute Neut 7.0 X10 3/uL Normal 2.0-7.7 [facility] Comment on above: Performed By: #### L 100.0100, L500.2500 ####[facility] [address] [place], [address] Basophils/100 WBC (Bld) 0.6 % Normal 0-1 [facility] Comment on above: Performed By: #### L 100.0100, L500.2500 ####[facility] [address] [place], [address] Eosinophils/100 WBC (Bld) 1.0 % Normal 0-5 [facility] Comment on above: Performed By: #### L 100.0100, L500.2500 ####[facility] [address] [place], [address] Erythrocyte distribution width (RBC) [Ratio] 17.1 % High 11.6-14.6 [facility] Comment on above: Performed By: #### L 100.0100, L500.2500 ####[facility] [address] [place], [address] Hematocrit (Bld) [Volume fraction] 29.0 % Low 40-54 [facility] Comment on above: Performed By: #### L 100.0100, L500.2500 ####[facility] [address] [place], [address] Hemoglobin (Bld) [Mass/Vol] 8.9 g/dL Low 13.0-16.5 [facility] Comment on above: Performed By: #### L 100.0100, L500.2500 ####[facility] [address] [place], [address] IG% 0.700 Normal 0.0-0.9 [facility] Comment on above: Result Comment: IG% - Immature Granulocytes (promyelocytes, myelocytes andmetamyelocytes) > 1% indicates that a LEFT SHIFT is Present. Performed By: #### L 100.0100, L500.2500 ####[facility] [address] [place], [address] Lymphocytes/100 WBC (Bld) 7.3 % Low 19-41 [facility] Comment on above: Performed By: #### L 100.0100, L500.2500 ####[facility] [address] [place], [address] MCH (RBC) [Entitic mass] 27.2 pg Normal 27.0-32.0 [facility] Comment on above: Performed By: #### L 100.0100, L500.2500 ####[facility] [address] [place], [address] MCHC (RBC) [Mass/Vol] 30.7 g/dL Low 32-36 [facility] Comment on above: Performed By: #### L 100.0100, L500.2500 ####[facility] [address] [place], [address] MCV (RBC) [Entitic vol] 88.7 fL Normal 80-94 [facility] Comment on above: Performed By: #### L 100.0100, L500.2500 ####[facility] [address] [place], [address] Monocytes/100 WBC (Bld) 10.7 % High 0-10 [facility] Comment on above: Performed By: #### L 100.0100, L500.2500 ####[facility] [address] [place], [address] Neutrophils/100 WBC (Bld) 79.7 % High 47-70 [facility] Comment on above: Performed By: #### L 100.0100, L500.2500 ####[facility] [address] [place], [address] Nucleated RBC (Bld) [#/Vol] 0.2 10*3/uL Normal 0-5 [facility] Comment on above: Performed By: #### L 100.0100, L500.2500 ####[facility] [address] [place], [address] Platelet mean volume (Bld) [Entitic vol] 11.1 fL Normal 6.2-12.0 [facility] Comment on above: Performed By: #### L 100.0100, L500.2500 ####[facility] [address] [place], [address] Platelets (Bld) [#/Vol] 226 10*3/uL Normal 150-450 [facility] Comment on above: Performed By: #### L 100.0100, L500.2500 ####[facility] [address] [place], [address] RBC (Bld) [#/Vol] 3.27 10*6/uL Low 4.6-6.2 [facility] Comment on above: Performed By: #### L 100.0100, L500.2500 ####[facility] [address] [place], [address] RDW SD 55.5 fl High 35.1-43.9 [facility] Comment on above: Performed By: #### L 100.0100, L500.2500 ####[facility] [address] [place], [address] WBC (Bld) [#/Vol] 8.7 10*3/uL Normal 4.4-11.0 [facility] Comment on above: Performed By: #### L 100.0100, L500.2500 ####[facility] [address] [place], [place], [id number] Carbon dioxide, total [Moles /volume] in Central venous bloodOrdered By: Ld Hayes on 04-05-2025 CO2 [Moles/Vol] 26.7 mmol/L 21.0-32.0 [facility] Chest PA and Lateralon 04-05 Chest PA and Lateral Normal [facility] Chloride assayOrdered By: Sky Hayes on 04-05-2025 Chloride [Moles/Vol] 97 mmol/L Low 98-108 [facility] Emergency Department Summary on 04-05-2025 Emergency Department Summary Normal [facility] Eosinophil percentageOrdered By: Ld Hayes on 04-05-2025 Eosinophils/100 WBC (Bld) 1.0 % 0-5 [facility] Erythrocyte distribution wid th ratioOrdered By: Ld Hayes on 04-05-2025 Erythrocyte distribution width (RBC) [Ratio] 17.1 % High 11.6-14.6 [facility] Erythrocyte distribution wid th standard deviationOrdered By: Ld Hayes on 04-05-2025 Erythrocyte distribution width (RBC) [Ratio] 55.5 fl High 35.1-43.9 [facility] Glomerular filtration rate ( GFR) estimation/1.73 sq m using serum, plasma, or whole bOrdered By: Ld Hayes on 04-05-2025 GFR/1.73 sq M.predicted among non-blacks MDRD (S/P/Bld) [Vol rate/Area] 25 mL/min/{1.73_m2} Low >60 [facility] Glucose measurement at bedsi deOrdered By: Ld Hayes on 04-05-2025 Glucose [Mass/Vol] 147 mg/dL High 74-106 [facility] H AND P Exam - Hospitaliston 04-05-2025 H&P Exam - Hospitalist Normal [facility] Hematocrit Auto (Bld) [Volum e fraction]Ordered By: Ld Hayes on 04-05-2025 Hematocrit (Bld) [Volume fraction] 29.0 % Low 40-54 [facility] Hemoglobin measurementOrdere d By: Ld Hayes on 04-05-2025 Hemoglobin (Bld) [Mass/Vol] 8.9 g/dL Low 13.0-16.5 [facility] Immature granulocytes/100 WB C Auto (Bld)Ordered By: Ld Hayes on 04-05-2025 Immature granulocytes/100 WBC (Bld) 0.700 % 0.0-0.9 [facility] Influenza virus A and B and SARS-CoV-2 (COVID-19) and Respiratory syncytial virus RNAOrdered By: Ld Hayes on 04-05-2025 SARS-CoV-2 (COVID-19) RNA BRYAN+probe Ql (Unsp spec) [facility] Ketones Test strip Ql (U)Ord ered By: Nicola Madison on 04-05-2025 Ketones Ql (U) Negative Negative [facility] L501.4021on 04-05-2025 Trop T High Sen 64 ng/L Invalid Interpretation Code <=22 [facility] Comment on above: Result Comment: Crit ical Result(s) Called [facility] at: 1805 by:RIVERA??Results read back by same. Performed By: #### L 501.4021 ####[facility] [address] [place], [address] M100.678on 04-05-2025 M100.678 SARS-CoV-2 (COVID 19 ) Negative INFLUENZA A Negative INFLUENZA B Negative RSV PCR Negative Normal [facility] Comment on above: Performed By: #### M 100.678 ####[facility] [address] [place], [address] MCV (mean corpuscular volume ) determinationOrdered By: Ld Hayes on 04-05-2025 MCV (RBC) [Entitic vol] 88.7 fL 80-94 [facility] Magnesiumon 04-05-2025 Magnesium [Mass/Vol] 2.5 mg/dL High 1.5-2.2 [facility] Comment on above: Performed By: #### L 501.5200, L501.9520 ####[facility] [address] [place], [place], [id number] Magnesium measurement (mass/ volume)Ordered By: Nicola Madison on 04-05-2025 Magnesium (Unsp spec) [Mass/Vol] 2.5 mg/dL High 1.5-2.2 [facility] Mean corpuscular hemoglobin (MCH) determinationOrdered By: Ld Hayes on 04-05-2025 MCH (RBC) [Entitic mass] 27.2 pg 27.0-32.0 [facility] Measurement, pHOrdered By: Sarah Madison on 04-05-2025 pH (Unsp spec) 7.36 [pH] 7.35-7.45 [facility] Monocyte percentageOrdered B y: Ld Hayes on 04-05-2025 Monocytes/100 WBC (Bld) 10.7 % High 0-10 [facility] Mucus LM Ql (Urine sed)Order ed By: Nicola Madison on 04-05-2025 Mucus Ql (Urine sed) 0 SEEN /hpf [facility] Natriuretic peptide.B prohor girish N-Terminal [Mass/volume] in Serum or PlasmaOrdered By: Ld Hayes on 04-05-2025 Natriuretic peptide.B prohormone N-Terminal [Mass/Vol] 4003 pg/mL High <1800 [facility] Neutrophil percentageOrdered By: Ld Hayes on 04-05-2025 Neutrophils/100 WBC (Bld) 79.7 % High 47-70 [facility] Nitrite Test strip Ql (U)Ord ered By: Nicola Madison on 04-05-2025 Nitrite Ql (U) Negative Negative [facility] No Panel InformationOrdered By: Nicola Madison on 04-05-2025 ART [facility] R Radial [facility] Not entered [facility] Cannula [facility] Platelet countOrdered By: Sky Hayes on 04-05-2025 Platelets (Bld) [#/Vol] 226 10*3/uL 150-450 [facility] Potassium measurement (mass/ volume)Ordered By: Ld Hayes on 04-05-2025 Potassium (Unsp spec) [Mass/Vol] 5.8 mmol/L High 3.3-5.1 [facility] Pro- Brain NATRIURETIC PEPTI Adrienne 04-05-2025 Natriuretic peptide B (Bld) [Mass/Vol] 4003 pg/mL High <=1800 [facility] Comment on above: Result Comment: Hear t Failure Unlikely: < 300 pg/mLHeart Failure Likely< 50 Years: > 450 pg/mL50-75 Years: > 900 pg/mL>75 Years: > 1800 pg/mL Performed By: #### L 503.7505 ####[facility] [address] [place], [address] Protein Test strip Ql (U)Ord ered By: Nicola Madison on 04-05-2025 Protein Ql (U) 100 mg/dl High Negative [facility] RBC Auto (Bld) [#/Vol]Ordere d By: Ld Hayes on 04-05-2025 RBC (Bld) [#/Vol] 3.27 10*6/uL Low 4.6-6.2 [facility] Serum creatinine measurement (mass/volume)Ordered By: Ld Hayes on 04-05-2025 Creatinine [Mass/Vol] 2.57 mg/dL High 0.70-1.20 [facility] Serum glucose measurement (m ass/volume)Ordered By: Ld Hayes on 04-05-2025 Glucose [Mass/Vol] 164 mg/dL High 70-99 [facility] Serum or plasma calcium kingsley urement (mass/volume)Ordered By: Ld Hayes on 04-05-2025 Calcium [Mass/Vol] 8.8 mg/dL 7.6-11.0 [facility] Serum or plasma urea nitroge n measurement (mass/volume)Ordered By: Ld Hayes on 04-05-2025 Urea nitrogen [Mass/Vol] 60 mg/dL High 4-19 [facility] Sodium levelOrdered By: Ld Hayes on 04-05-2025 Sodium [Moles/Vol] 134 mmol/L 133-145 [facility] Squamous epithelial cells de tection in urine sediment by light microscopyOrdered By: Nicola Madison on 04-05-2025 Epithelial cells.squamous LM Ql (Urine sed) 0-5 SEEN /hpf 0-5 [facility] TSH DL <= 0.005 mIU/L QnOrde red By: Nicola Madison on 04-05-2025 TSH Qn 3.830 uIU/mL 0.300-4.20 0 [facility] Thyroid Stim Hormone (TSH)on 04-05-2025 TSH 3.830 uIU/mL Normal 0.300-4.20 0 [facility] Comment on above: Performed By: #### L 501.5200, L501.9520 ####[facility] [address] [place], [place], [address] Total carbon dioxide measure mentOrdered By: Nicola aMdison on 04-05-2025 CO2 [Moles/Vol] 34 mmol/L [facility] Troponin T HS 2 HRon 025 Trop T High Sen 62 ng/L Invalid Interpretation Code <=22 [facility] Comment on above: Result Comment: Crit ical Result(s) Called [facility] at:2002 by:RIVERA??Results read back by same. Performed By: #### L 499.0042 ####[facility] [address] [place], [place], [address] Troponin T HS 4 HRon 025 Trop T High Sen 60 ng/L Invalid Interpretation Code <=22 [facility] Comment on above: Result Comment: Crit ical Result(s) Called [facility] at: 2137 by:RIVERA??Results read back by same. Performed By: #### L 499.0043 ####[facility] [address] [place], [place], [address] Troponin T.cardiac [Mass/vol ume] in Serum or Plasma by High sensitivity methodOrdered By: Ld Hayes on 04-05-2025 Troponin T.cardiac High sensitivity method [Mass/Vol] 60 ng/L High <22 [facility] Troponin T.cardiac High sensitivity method [Mass/Vol] 62 ng/L High <22 [facility] Troponin T.cardiac High sensitivity method [Mass/Vol] 64 ng/L High <22 [facility] Urinalysis, Completeon 04-05 BACTERIA 2+ /hpf Normal None Seen [facility] Comment on above: Order Comment: CLEAN CATCH Performed By: #### L 400.0001 ####[facility] [address] [place], [address] EPI,SQUAMOUS 0-5 SEEN Normal 0-5 [facility] Comment on above: Order Comment: CLEAN CATCH Performed By: #### L 400.0001 ####[facility] [address] [place], [address] RBC 0-5 SEEN Normal 0-5 [facility] Comment on above: Order Comment: CLEAN CATCH Performed By: #### L 400.0001 ####[facility] [address] [place], [address] WBC 5-10 SEEN Normal 0-5 [facility] Comment on above: Order Comment: CLEAN CATCH Performed By: #### L 400.0001 ####[facility] [address] [place], [address] Mucus Ql (Urine sed) 0 SEEN Normal [facility] Comment on above: Order Comment: CLEAN CATCH Performed By: #### L 400.0001 ####[facility] [address] [place], [place], [address] Urine clarityOrdered By: Jacob Madison on 04-05-2025 Clarity (U) Clear Clear [facility] Urine color determinationOrd ered By: Nicola Madison on 04-05-2025 Color (U) Yellow Yellow [facility] Urine glucose detectionOrder ed By: Nicola Madison on 04-05-2025 Glucose Ql (U) Normal mg/dl Normal [facility] Urine leukocyte esterase det ection by dipstickOrdered By: iNcola Madison on 04-05-2025 Leukocyte esterase Test strip Ql (U) 500 /ul High Negative [facility] Urine pHOrdered By: Nicola stack on 04-05-2025 pH (U) 5.0 [pH] 5.0 - 8.0 [facility] Urine sediment bacteria coun t by microscopy (number/high power field)Ordered By: Nicola Madison on 08-17-2025 Bacteria LM.HPF (Urine sed) [#/Area] 2 /[HPF] None Seen [facility] Urine specific gravity measu rementOrdered By: Nicola Madison on 04-05-2025 Specific gravity (U) [Rel density] 1.015 1.002-1.03 0 [facility] Urine urobilinogen measureme ntOrdered By: Nicola Madison on 04-05-2025 Urobilinogen Ql (U) Normal mg/dl Normal [facility] White blood cell (WBC) count Ordered By: Ld Hayes on 04-05-2025 WBC (Bld) [#/Vol] 8.7 10*3/uL 4.4-11.0 [facility] White blood cell countOrdere d By: Nicola Madison on 04-05-2025 White blood cell count 5-10 SEEN /hpf 0-5 [facility] Absolute lymphocyte countOrd ered By: Leslie Arriaga on 04-02-2025 Lymphocytes Auto (Unsp spec) [#/Vol] 0.87 10*3/uL 0.83-4.51 [facility] Absolute neutrophil countOrd ered By: Leslie Arriaga on 04-02-2025 Neutrophils (Bld) [#/Vol] 6.9 10*3/uL 2.0-7.7 [facility] Anion gap in Serum or Plasma Ordered By: Leslie Arriaga on 04-02-2025 Anion gap [Moles/Vol] 10 mmol/L 5-15 [facility] Automated lymphocyte count a s percentage of total leukocytesOrdered By: Leslie Arriaga on 04-02-2025 Lymphocytes/100 WBC Auto (Unsp spec) 10.0 % Low 19-41 [facility] BUN/creatinine ratioOrdered By: Leslie Arriaga on 04-02-2025 Urea nitrogen/Creatinine [Mass ratio] 16.4 mg/mg 10- [facility] Basic Metabolic Profile (BMP )on 04-02-2025 BUN/CRE 16.4 RATIO Normal - [facility] Comment on above: Order Comment: Comme nts: [facility] Performed By: #### L 100.0100, L503.7505, L500.2500 ####[facility] [address] [place], [address] Calcium [Mass/Vol] 9.2 mg/dL Normal 7.6-11.0 [facility] Comment on above: Order Comment: Comme nts: [facility] Performed By: #### L 100.0100, L503.7505, L500.2500 ####[facility] [address] [place], [address] Chloride [Moles/Vol] 99 mmol/L Normal 98-108 [facility] Comment on above: Order Comment: Comme nts: [facility] Performed By: #### L 100.0100, L503.7505, L500.2500 ####[facility] [address] [place], [address] CO2 [Moles/Vol] 27.8 mmol/L Normal 21.0-32.0 [facility] Comment on above: Order Comment: Comme nts: [facility] to [facility] Performed By: #### L 100.0100, L503.7505, L500.2500 ####[facility] [facility] [address] [place], [address] Creatinine [Mass/Vol] 2.13 mg/dL High 0.70-1.20 [facility] Comment on above: Order Comment: Comme nts: Home Health to Draw TomorrowHome Health to Draw Tomorrow Performed By: #### L 100.0100, L503.7505, L500.2500 ####[facility] [address] [place], [address] GAP 10 Normal 5-15 [facility] Comment on above: Order Comment: Comme nts: Home Health to Draw TomorrowHome Health to Draw Tomorrow Performed By: #### L 100.0100, L503.7505, L500.2500 ####[facility] [address] [place], [address] GFR/1.73 sq M.predicted among non-blacks MDRD (S/P/Bld) [Vol rate/Area] 31 mL/min/{1.73_m2} Low >60 [facility] Comment on above: Order Comment: Comme nts: Home Health to Draw TomorrowHome Health to Draw Tomorrow Result Comment: mL/m in/1.73m2 CKD-EPI Creatinine Equation (2020) Performed By: #### L 100.0100, L503.7505, L500.2500 ####[facility] [address] [place], [address] Glucose [Mass/Vol] 185 mg/dL High 70-99 [facility] Comment on above: Order Comment: Comme nts: Home Health to Draw TomorrowHome Health to Draw Tomorrow Performed By: #### L 100.0100, L503.7505, L500.2500 ####[facility] [address] [place], [address] Potassium [Moles/Vol] 5.6 mmol/L High 3.3-5.1 [facility] Comment on above: Order Comment: Comme nts: Home Health to Draw TomorrowHome Health to Draw Tomorrow Performed By: #### L 100.0100, L503.7505, L500.2500 ####[facility] [address] [place], [address] Sodium [Moles/Vol] 137 mmol/L Normal 133-145 [facility] Comment on above: Order Comment: Comme nts: Home Health to Draw TomorrowHome Health to Draw Tomorrow Performed By: #### L 100.0100, L503.7505, L500.2500 ####[facility] [address] [place], [address] Urea nitrogen [Mass/Vol] 35 mg/dL High 4-19 [facility] Comment on above: Order Comment: Comme nts: Home Health to Draw TomorrowHome Health to Draw Tomorrow Performed By: #### L 100.0100, L503.7505, L500.2500 ####[facility] [address] [place], [address] Basophil percentageOrdered B y: Leslie Steelonnell on 04-02-2025 Basophils/100 WBC (Bld) 0.3 % 0-1 [facility] CBC W/Diff, Automatedon 03-20-2024 Absolute Lymph 0.87 X10 3/uL Normal 0.83-4.51 [facility] Comment on above: Order Comment: Comme nts: Home Health to Draw Tomorrow Performed By: #### L 100.0100, L503.7505, L500.2500 ####[facility] [address] [place], [address] Absolute Neut 6.9 X10 3/uL Normal 2.0-7.7 [facility] Comment on above: Order Comment: Comme nts: Home Health to Draw Tomorrow Performed By: #### L 100.0100, L503.7505, L500.2500 ####[facility] [address] [place], [address] Basophils/100 WBC (Bld) 0.3 % Normal 0-1 [facility] Comment on above: Order Comment: Comme nts: Home Health to Draw Tomorrow Performed By: #### L 100.0100, L503.7505, L500.2500 ####[facility] [address] [place], [address] Eosinophils/100 WBC (Bld) 0.8 % Normal 0-5 [facility] Comment on above: Order Comment: Comme nts: Home Health to Draw Tomorrow Performed By: #### L 100.0100, L503.7505, L500.2500 ####[facility] [address] [place], [address] Erythrocyte distribution width (RBC) [Ratio] 17.1 % High 11.6-14.6 [facility] Comment on above: Order Comment: Comme nts: Home Health to Draw Tomorrow Performed By: #### L 100.0100, L503.7505, L500.2500 ####[facility] [address] [place], [address] Hematocrit (Bld) [Volume fraction] 30.6 % Low 40-54 [facility] Comment on above: Order Comment: Comme nts: Home Health to Draw Tomorrow Performed By: #### L 100.0100, L503.7505, L500.2500 ####[facility] [address] [place], [address] Hemoglobin (Bld) [Mass/Vol] 9.2 g/dL Low 13.0-16.5 [facility] Comment on above: Order Comment: Comme nts: Home Health to Draw Tomorrow Performed By: #### L 100.0100, L503.7505, L500.2500 ####[facility] [address] [place], [address] IG% 0.600 Normal 0.0-0.9 [facility] Comment on above: Order Comment: Comme nts: Home Health to Draw Tomorrow Result Comment: IG% - Immature Granulocytes (promyelocytes, myelocytes andmetamyelocytes) > 1% indicates that a LEFT SHIFT is Present. Performed By: #### L 100.0100, L503.7505, L500.2500 ####[facility] [address] [place], [address] Lymphocytes/100 WBC (Bld) 10.0 % Low 19-41 [facility] Comment on above: Order Comment: Comme nts: Home Health to Draw Tomorrow Performed By: #### L 100.0100, L503.7505, L500.2500 ####[facility] [address] [place], [address] MCH (RBC) [Entitic mass] 26.8 pg Low 27.0-32.0 [facility] Comment on above: Order Comment: Comme nts: Home Health to Draw Tomorrow Performed By: #### L 100.0100, L503.7505, L500.2500 ####[facility] [address] [place], [address] MCHC (RBC) [Mass/Vol] 30.1 g/dL Low 32-36 [facility] Comment on above: Order Comment: Comme nts: Home Health to Draw Tomorrow Performed By: #### L 100.0100, L503.7505, L500.2500 ####[facility] [address] [place], [address] MCV (RBC) [Entitic vol] 89.2 fL Normal 80-94 [facility] Comment on above: Order Comment: Comme nts: Home Health to Draw Tomorrow Performed By: #### L 100.0100, L503.7505, L500.2500 ####[facility] [address] [place], [address] Monocytes/100 WBC (Bld) 8.9 % Normal 0-10 [facility] Comment on above: Order Comment: Comme nts: Home Health to Draw Tomorrow Performed By: #### L 100.0100, L503.7505, L500.2500 ####[facility] [address] [place], [address] Neutrophils/100 WBC (Bld) 79.4 % High 47-70 [facility] Comment on above: Order Comment: Comme nts: Home Health to Draw Tomorrow Performed By: #### L 100.0100, L503.7505, L500.2500 ####[facility] [address] [place], [address] Nucleated RBC (Bld) [#/Vol] 0 10*3/uL Normal 0-5 [facility] Comment on above: Order Comment: Comme nts: Home Health to Draw Tomorrow Performed By: #### L 100.0100, L503.7505, L500.2500 ####[facility] [address] [place], [address] Platelet mean volume (Bld) [Entitic vol] 10.6 fL Normal 6.2-12.0 [facility] Comment on above: Order Comment: Comme nts: Home Health to Draw Tomorrow Performed By: #### L 100.0100, L503.7505, L500.2500 ####[facility] [address] [place], [address] Platelets (Bld) [#/Vol] 210 10*3/uL Normal 150-450 [facility] Comment on above: Order Comment: Comme nts: Home Health to Draw Tomorrow Performed By: #### L 100.0100, L503.7505, L500.2500 ####[facility] [address] [place], [address] RBC (Bld) [#/Vol] 3.43 10*6/uL Low 4.6-6.2 [facility] Comment on above: Order Comment: Comme nts: Home Health to Draw Tomorrow Performed By: #### L 100.0100, L503.7505, L500.2500 ####[facility] [address] [place], [address] RDW SD 55.3 fl High 35.1-43.9 [facility] Comment on above: Order Comment: Comme nts: Home Health to Draw Tomorrow Performed By: #### L 100.0100, L503.7505, L500.2500 ####[facility] [address] [place], [address] WBC (Bld) [#/Vol] 8.7 10*3/uL Normal 4.4-11.0 [facility] Comment on above: Order Comment: Comme nts: Home Health to Draw Tomorrow Performed By: #### L 100.0100, L503.7505, L500.2500 ####[facility] [address] [place], [address] Carbon dioxide, total [Moles /volume] in Central venous bloodOrdered By: Leslie Arriaga on 04-02-2025 CO2 [Moles/Vol] 27.8 mmol/L 21.0-32.0 [facility] Chloride assayOrdered By: Linsey Arriaga on 04-02-2025 Chloride [Moles/Vol] 99 mmol/L 98-108 [facility] Eosinophil percentageOrdered By: Leslie Arriaga on 04-02-2025 Eosinophils/100 WBC (Bld) 0.8 % 0-5 [facility] Erythrocyte distribution wid th ratioOrdered By: Leslie Arriaga on 04-02-2025 Erythrocyte distribution width (RBC) [Ratio] 17.1 % High 11.6-14.6 [facility] Erythrocyte distribution wid th standard deviationOrdered By: Leslie Arriaga on 04-02-2025 Erythrocyte distribution width (RBC) [Ratio] 55.3 fl High 35.1-43.9 [facility] Glomerular filtration rate ( GFR) estimation/1.73 sq m using serum, plasma, or whole bOrdered By: Leslie Arriaga on 04-02-2025 GFR/1.73 sq M.predicted among non-blacks MDRD (S/P/Bld) [Vol rate/Area] 31 mL/min/{1.73_m2} Low >60 [facility] Comment on above: mL/min/1.73m2 CKD-EP I Creatinine Equation (2020) Hematocrit Auto (Bld) [Volum e fraction]Ordered By: Leslie Arriaga on 04-02-2025 Hematocrit (Bld) [Volume fraction] 30.6 % Low 40-54 [facility] Hemoglobin measurementOrdere d By: Leslie Arriaga on 04-02-2025 Hemoglobin (Bld) [Mass/Vol] 9.2 g/dL Low 13.0-16.5 [facility] Immature granulocytes/100 WB C Auto (Bld)Ordered By: Leslie Arriaga on 04-02-2025 Immature granulocytes/100 WBC (Bld) 0.600 % 0.0-0.9 [facility] Comment on above: IG% - Immature Granu locytes (promyelocytes, myelocytes and metamyelocytes) > 1% indicates that a LEFT SHIFT is Present. MCV (mean corpuscular volume ) determinationOrdered By: Leslie Arriaga on 04-02-2025 MCV (RBC) [Entitic vol] 89.2 fL 80-94 [facility] Mean corpuscular hemoglobin (MCH) determinationOrdered By: Leslie Arriaga on 04-02-2025 MCH (RBC) [Entitic mass] 26.8 pg Low 27.0-32.0 [facility] Mean corpuscular hemoglobin concentration (MCHC) determinationOrdered By: Leslie Arriaga on 04-02-2025 MCHC (RBC) [Mass/Vol] 30.1 g/dL Low 32-36 [facility] Mean platelet volume determi nationOrdered By: Leslie Arriaga on 04-02-2025 Platelet mean volume (Bld) [Entitic vol] 10.6 fL 6.2-12.0 [facility] Monocyte percentageOrdered B y: Leslie Arriaga on 04-02-2025 Monocytes/100 WBC (Bld) 8.9 % 0-10 [facility] Natriuretic peptide.B prohor girish N-Terminal [Mass/volume] in Serum or PlasmaOrdered By: Leslie Arriaga on 04-02-2025 Natriuretic peptide.B prohormone N-Terminal [Mass/Vol] 2526 pg/mL High <1800 [facility] Comment on above: Heart Failure Unlike ly: < 300 pg/mLHeart Failure Likely< 50 Years: > 450 pg/mL50-75 Years: > 900 pg/mL>75 Years: > 1800 pg/mL Neutrophil percentageOrdered By: Leslie Arriaga on 04-02-2025 Neutrophils/100 WBC (Bld) 79.4 % High 47-70 [facility] Nucleated red blood cell per centageOrdered By: Leslie Arriaga on 04-02-2025 Nucleated RBC/100 WBC (Bld) [Ratio] 0 % 0-5 [facility] Platelet countOrdered By: Linsey Arriaga on 04-02-2025 Platelets (Bld) [#/Vol] 210 10*3/uL 150-450 [facility] Potassium measurement (mass/ volume)Ordered By: Leslie Arriaga on 04-02-2025 Potassium (Unsp spec) [Mass/Vol] 5.6 mmol/L High 3.3-5.1 [facility] Pro- Brain NATRIURETIC PEPTI Adrienne 04-02-2025 Natriuretic peptide B (Bld) [Mass/Vol] 2526 pg/mL High <=1800 [facility] Comment on above: Order Comment: Comme nts: Home Health to Draw Tomorrow Result Comment: Hear t Failure Unlikely: < 300 pg/mLHeart Failure Likely< 50 Years: > 450 pg/mL50-75 Years: > 900 pg/mL>75 Years: > 1800 pg/mL Performed By: #### L 100.0100, L503.7505, L500.2500 ####[facility] [address] [place], [address] RBC Auto (Bld) [#/Vol]Ordere d By: Leslie Arriaga on 04-02-2025 RBC (Bld) [#/Vol] 3.43 10*6/uL Low 4.6-6.2 [facility] Serum creatinine measurement (mass/volume)Ordered By: Leslie Arriaga on 04-02-2025 Creatinine [Mass/Vol] 2.13 mg/dL High 0.70-1.20 [facility] Serum glucose measurement (m ass/volume)Ordered By: Leslie Arriaga on 04-02-2025 Glucose [Mass/Vol] 185 mg/dL High 70-99 [facility] Serum or plasma calcium kingsley urement (mass/volume)Ordered By: Leslie Arriaga on 04-02-2025 Calcium [Mass/Vol] 9.2 mg/dL 7.6-11.0 [facility] Serum or plasma urea nitroge n measurement (mass/volume)Ordered By: Leslie Arriaga on 04-02-2025 Urea nitrogen [Mass/Vol] 35 mg/dL High 4-19 [facility] Sodium levelOrdered By: Brian julien Corina on 04-02-2025 Sodium [Moles/Vol] 137 mmol/L 133-145 [facility] White blood cell (WBC) count Ordered By: Leslie Arriaga on 04-02-2025 WBC (Bld) [#/Vol] 8.7 10*3/uL 4.4-11.0 [facility] Absolute lymphocyte countOrd ered By: Tonio Fajardo on 03-18-2025 Lymphocytes Auto (Unsp spec) [#/Vol] 0.88 10*3/uL 0.83-4.51 [facility] Absolute neutrophil countOrd ered By: Tonio Fajardo on 03-18-2025 Neutrophils (Bld) [#/Vol] 5.9 10*3/uL 2.0-7.7 [facility] Anion gap in Serum or Plasma Ordered By: Tonio Fajardo on 03-18-2025 Anion gap [Moles/Vol] 11 mmol/L - [facility] Automated lymphocyte count a s percentage of total leukocytesOrdered By: Tonio Fajardo on 03-18-2025 Lymphocytes/100 WBC Auto (Unsp spec) 11.2 % Low - [facility] BUN/creatinine ratioOrdered By: Tonio Fajardo on 03-18-2025 Urea nitrogen/Creatinine [Mass ratio] 14.8 mg/mg 06-08 [facility] Basic Metabolic Profile (BMP )on 03-18-2025 BUN/CRE 14.8 RATIO Normal 06-08 [facility] Comment on above: Performed By: #### L 500.2500, L100.0100 ####[facility] [address] [place], [address] Calcium [Mass/Vol] 9.5 mg/dL Normal 7.6-11.0 [facility] Comment on above: Performed By: #### L 500.2500, L100.0100 ####[facility] [address] [place], [address] Chloride [Moles/Vol] 99 mmol/L Normal 98-108 [facility] Comment on above: Performed By: #### L 500.2500, L100.0100 ####[facility] [address] [place], [address] CO2 [Moles/Vol] 26.7 mmol/L Normal 21.0-32.0 [facility] Comment on above: Performed By: #### L 500.2500, L100.0100 ####[facility] [address] [place], [address] Creatinine [Mass/Vol] 1.59 mg/dL High 0.70-1.20 [facility] Comment on above: Performed By: #### L 500.2500, L100.0100 ####[facility] [address] [place], [address] GAP 11 Normal 5-15 [facility] Comment on above: Performed By: #### L 500.2500, L100.0100 ####[facility] [address] [place], [address] GFR/1.73 sq M.predicted among non-blacks MDRD (S/P/Bld) [Vol rate/Area] 44 mL/min/{1.73_m2} Low >60 [facility] Comment on above: Result Comment: mL/m in/1.73m2 CKD-EPI Creatinine Equation (2020) Performed By: #### L 500.2500, L100.0100 ####[facility] [address] [place], [address] Glucose [Mass/Vol] 223 mg/dL High 70-99 [facility] Comment on above: Performed By: #### L 500.2500, L100.0100 ####[facility] [address] [place], [address] Potassium [Moles/Vol] 5.2 mmol/L High 3.3-5.1 [facility] Comment on above: Performed By: #### L 500.2500, L100.0100 ####[facility] [address] [place], [address] Sodium [Moles/Vol] 137 mmol/L Normal 133-145 [facility] Comment on above: Performed By: #### L 500.2500, L100.0100 ####[facility] [address] [place], [address] Urea nitrogen [Mass/Vol] 24 mg/dL High 4-19 [facility] Comment on above: Performed By: #### L 500.2500, L100.0100 ####[facility] [address] [place], [address] Basophil percentageOrdered B y: Tonio Fajardo on 03-18-2025 Basophils/100 WBC (Bld) 0.5 % 0-1 [facility] CBC W/Diff, Automatedon 02-19 0-2024 Absolute Lymph 0.88 X10 3/uL Normal 0.83-4.51 [facility] Comment on above: Performed By: #### L 500.2500, L100.0100 ####[facility] [address] [place], [address] Absolute Neut 5.9 X10 3/uL Normal 2.0-7.7 [facility] Comment on above: Performed By: #### L 500.2500, L100.0100 ####[facility] [address] [place], [address] Basophils/100 WBC (Bld) 0.5 % Normal 0-1 [facility] Comment on above: Performed By: #### L 500.2500, L100.0100 ####[facility] [address] [place], [address] Eosinophils/100 WBC (Bld) 3.1 % Normal 0-5 [facility] Comment on above: Performed By: #### L 500.2500, L100.0100 ####[facility] [address] [place], [address] Erythrocyte distribution width (RBC) [Ratio] 16.4 % High 11.6-14.6 [facility] Comment on above: Performed By: #### L 500.2500, L100.0100 ####[facility] [address] [place], [address] Hematocrit (Bld) [Volume fraction] 32.6 % Low 40-54 [facility] Comment on above: Performed By: #### L 500.2500, L100.0100 ####[facility] [address] [place], [address] Hemoglobin (Bld) [Mass/Vol] 9.7 g/dL Low 13.0-16.5 [facility] Comment on above: Performed By: #### L 500.2500, L100.0100 ####[facility] [address] [place], [address] IG% 1.100 High 0.0-0.9 [facility] Comment on above: Result Comment: IG% - Immature Granulocytes (promyelocytes, myelocytes andmetamyelocytes) > 1% indicates that a LEFT SHIFT is Present. Performed By: #### L 500.2500, L100.0100 ####[facility] [address] [place], [address] Lymphocytes/100 WBC (Bld) 11.2 % Low 19-41 [facility] Comment on above: Performed By: #### L 500.2500, L100.0100 ####[facility] [address] [place], [address] MCH (RBC) [Entitic mass] 26.8 pg Low 27.0-32.0 [facility] Comment on above: Performed By: #### L 500.2500, L100.0100 ####[facility] [address] [place], [address] MCHC (RBC) [Mass/Vol] 29.8 g/dL Low 32-36 [facility] Comment on above: Performed By: #### L 500.2500, L100.0100 ####[facility] [address] [place], [address] MCV (RBC) [Entitic vol] 90.1 fL Normal 80-94 [facility] Comment on above: Performed By: #### L 500.2500, L100.0100 ####[facility] [address] [place], [address] Monocytes/100 WBC (Bld) 9.4 % Normal 0-10 [facility] Comment on above: Performed By: #### L 500.2500, L100.0100 ####[facility] [address] [place], [address] Neutrophils/100 WBC (Bld) 74.7 % High 47-70 [facility] Comment on above: Performed By: #### L 500.2500, L100.0100 ####[facility] [address] [place], [address] Nucleated RBC (Bld) [#/Vol] 0 10*3/uL Normal 0-5 [facility] Comment on above: Performed By: #### L 500.2500, L100.0100 ####[facility] [address] [place], [address] Platelet mean volume (Bld) [Entitic vol] 10.4 fL Normal 6.2-12.0 [facility] Comment on above: Performed By: #### L 500.2500, L100.0100 ####[facility] [address] [place], [address] Platelets (Bld) [#/Vol] 252 10*3/uL Normal 150-450 [facility] Comment on above: Performed By: #### L 500.2500, L100.0100 ####[facility] [address] [place], [address] RBC (Bld) [#/Vol] 3.62 10*6/uL Low 4.6-6.2 [facility] Comment on above: Performed By: #### L 500.2500, L100.0100 ####[facility] [address] [place], [address] RDW SD 53.8 fl High 35.1-43.9 [facility] Comment on above: Performed By: #### L 500.2500, L100.0100 ####[facility] [address] [place], [address] WBC (Bld) [#/Vol] 7.9 10*3/uL Normal 4.4-11.0 [facility] Comment on above: Performed By: #### L 500.2500, L100.0100 ####[facility] [address] [place], [address] Carbon dioxide, total [Moles /volume] in Central venous bloodOrdered By: Tonio Fajardo on 03-18-2025 CO2 [Moles/Vol] 26.7 mmol/L 21.0-32.0 [facility] Chloride assayOrdered By: Min Fajardo on 03-18-2025 Chloride [Moles/Vol] 99 mmol/L 98-108 [facility] Eosinophil percentageOrdered By: Tonio Fajardo on 03-18-2025 Eosinophils/100 WBC (Bld) 3.1 % 0-5 [facility] Erythrocyte distribution wid th ratioOrdered By: Tonio Fajardo on 03-18-2025 Erythrocyte distribution width (RBC) [Ratio] 16.4 % High 11.6-14.6 [facility] Erythrocyte distribution wid th standard deviationOrdered By: Tonio Fajardo on 03-18-2025 Erythrocyte distribution width (RBC) [Ratio] 53.8 fl High 35.1-43.9 [facility] Glomerular filtration rate ( GFR) estimation/1.73 sq m using serum, plasma, or whole bOrdered By: Tonio Fajardo on 03-18-2025 GFR/1.73 sq M.predicted among non-blacks MDRD (S/P/Bld) [Vol rate/Area] 44 mL/min/{1.73_m2} Low >60 [facility] Comment on above: mL/min/1.73m2 CKD-EP I Creatinine Equation (2020) Hematocrit Auto (Bld) [Volum e fraction]Ordered By: Tonio Fajardo on 03-18-2025 Hematocrit (Bld) [Volume fraction] 32.6 % Low 40-54 [facility] Hemoglobin measurementOrdere d By: Tonio Fajardo on 03-18-2025 Hemoglobin (Bld) [Mass/Vol] 9.7 g/dL Low 13.0-16.5 [facility] Immature granulocytes/100 WB C Auto (Bld)Ordered By: Tonio Fajardo on 03-18-2025 Immature granulocytes/100 WBC (Bld) 1.100 % High 0.0-0.9 [facility] Comment on above: IG% - Immature Granu locytes (promyelocytes, myelocytes and metamyelocytes) > 1% indicates that a LEFT SHIFT is Present. MCV (mean corpuscular volume ) determinationOrdered By: Tonio Fajardo on 03-18-2025 MCV (RBC) [Entitic vol] 90.1 fL 80-94 [facility] Mean corpuscular hemoglobin (MCH) determinationOrdered By: Tonio Fajardo on 03-18-2025 MCH (RBC) [Entitic mass] 26.8 pg Low 27.0-32.0 [facility] Mean corpuscular hemoglobin concentration (MCHC) determinationOrdered By: Tonio Fajardo on 03-18-2025 MCHC (RBC) [Mass/Vol] 29.8 g/dL Low 32-36 [facility] Mean platelet volume determi nationOrdered By: Tonio Fajardo on 03-18-2025 Platelet mean volume (Bld) [Entitic vol] 10.4 fL 6.2-12.0 [facility] Monocyte percentageOrdered B y: Tonio Fajardo on 03-18-2025 Monocytes/100 WBC (Bld) 9.4 % 0-10 [facility] Neutrophil percentageOrdered By: Tonio Fajardo on 03-18-2025 Neutrophils/100 WBC (Bld) 74.7 % High 47-70 [facility] Nucleated red blood cell per centageOrdered By: Tonio Fajardo on 03-18-2025 Nucleated RBC/100 WBC (Bld) [Ratio] 0 % 0-5 [facility] Platelet countOrdered By: Min Fajardo on 03-18-2025 Platelets (Bld) [#/Vol] 252 10*3/uL 150-450 [facility] Potassium measurement (mass/ volume)Ordered By: Tonio Fajardo on 03-18-2025 Potassium (Unsp spec) [Mass/Vol] 5.2 mmol/L High 3.3-5.1 [facility] RBC Auto (Bld) [#/Vol]Ordere d By: Tonio Fajardo on 03-18-2025 RBC (Bld) [#/Vol] 3.62 10*6/uL Low 4.6-6.2 [facility] Serum creatinine measurement (mass/volume)Ordered By: Tonio Fajardo on 03-18-2025 Creatinine [Mass/Vol] 1.59 mg/dL High 0.70-1.20 [facility] Serum glucose measurement (m ass/volume)Ordered By: Tonio Fajardo on 03-18-2025 Glucose [Mass/Vol] 223 mg/dL High 70-99 [facility] Serum or plasma calcium kingsley urement (mass/volume)Ordered By: Tonio Fajardo on 03-18-2025 Calcium [Mass/Vol] 9.5 mg/dL 7.6-11.0 [facility] Serum or plasma urea nitroge n measurement (mass/volume)Ordered By: Tonio Fajardo on 03-18-2025 Urea nitrogen [Mass/Vol] 24 mg/dL High 4-19 [facility] Sodium levelOrdered By: Tonio Fajardo on 03-18-2025 Sodium [Moles/Vol] 137 mmol/L 133-145 [facility] White blood cell (WBC) count Ordered By: Tonio Fajardo on 03-18-2025 WBC (Bld) [#/Vol] 7.9 10*3/uL 4.4-11.0 [facility] Cardiology Visit Reporton Cardiology Visit Report Normal [facility] Emergency Department Summary on 03-15-2025 Emergency Department Summary Normal [facility] Basic Metabolic Profile (BMP )on 03-11-2025 BUN Normal 4-19 [facility] Comment on above: Result Comment: Canc elled via OM: Order cancelled - Patient discharged Performed By: #### L 500.2500, L100.0100 ####[facility] [address] [place], [address] BUN/CRE Normal 10-20 [facility] Comment on above: Result Comment: Canc elled via OM: Order cancelled - Patient discharged Performed By: #### L 500.2500, L100.0100 ####[facility] [address] [place], [address] Calcium Normal 7.6-11.0 [facility] Comment on above: Result Comment: Canc elled via OM: Order cancelled - Patient discharged Performed By: #### L 500.2500, L100.0100 ####[facility] [address] [place], [address] CL Normal 98-108 [facility] Comment on above: Result Comment: Canc elled via OM: Order cancelled - Patient discharged Performed By: #### L 500.2500, L100.0100 ####[facility] [address] [place], [address] CO2 Normal 21.0-32.0 [facility] Comment on above: Result Comment: Canc elled via OM: Order cancelled - Patient discharged Performed By: #### L 500.2500, L100.0100 ####[facility] [address] [place], [address] CREAT,SERUM Normal 0.70-1.20 [facility] Comment on above: Result Comment: Canc elled via OM: Order cancelled - Patient discharged Performed By: #### L 500.2500, L100.0100 ####[facility] [address] [place], [address] eGFR Normal >60 [facility] Comment on above: Result Comment: Canc elled via OM: Order cancelled - Patient discharged Performed By: #### L 500.2500, L100.0100 ####[facility] [address] [place], [address] GAP Normal 5-15 [facility] Comment on above: Result Comment: Canc elled via OM: Order cancelled - Patient discharged Performed By: #### L 500.2500, L100.0100 ####[facility] [address] [place], [address] GLU Normal 70-99 [facility] Comment on above: Result Comment: Canc elled via OM: Order cancelled - Patient discharged Performed By: #### L 500.2500, L100.0100 ####[facility] [address] [place], [address] Potassium Normal 3.3-5.1 [facility] Comment on above: Result Comment: Canc elled via OM: Order cancelled - Patient discharged Performed By: #### L 500.2500, L100.0100 ####[facility] [address] [place], [address] Basic Metabolic Profile (BMP) Normal 133-145 [facility] Comment on above: Result Comment: Canc elled via OM: Order cancelled - Patient discharged Performed By: #### L 500.2500, L100.0100 ####[facility] [address] [place], [address] CBC W/Diff, Automatedon 07-2 Absolute Neut Normal 2.0-7.7 [facility] Comment on above: Result Comment: Canc elled via OM: Order cancelled - Patient discharged Performed By: #### L 500.2500, L100.0100 ####[facility] [address] [place], [address] HCT Normal 40-54 [facility] Comment on above: Result Comment: Canc elled via OM: Order cancelled - Patient discharged Performed By: #### L 500.2500, L100.0100 ####[facility] [address] [place], [address] HGB Normal 13.0-16.5 [facility] Comment on above: Result Comment: Canc elled via OM: Order cancelled - Patient discharged Performed By: #### L 500.2500, L100.0100 ####[facility] [address] [place], [address] MCH Normal 27.0-32.0 [facility] Comment on above: Result Comment: Canc elled via OM: Order cancelled - Patient discharged Performed By: #### L 500.2500, L100.0100 ####[facility] [address] [place], [address] MCHC Normal 32-36 [facility] Comment on above: Result Comment: Canc elled via OM: Order cancelled - Patient discharged Performed By: #### L 500.2500, L100.0100 ####[facility] [address] [place], [address] MCV Normal 80-94 [facility] Comment on above: Result Comment: Canc elled via OM: Order cancelled - Patient discharged Performed By: #### L 500.2500, L100.0100 ####[facility] [address] [place], [address] NEUT% Normal 47-70 [facility] Comment on above: Result Comment: Canc elled via OM: Order cancelled - Patient discharged Performed By: #### L 500.2500, L100.0100 ####[facility] [address] [place], [address] PLT Normal 150-450 [facility] Comment on above: Result Comment: Canc elled via OM: Order cancelled - Patient discharged Performed By: #### L 500.2500, L100.0100 ####[facility] [address] [place], [address] RBC Normal 4.6-6.2 [facility] Comment on above: Result Comment: Canc elled via OM: Order cancelled - Patient discharged Performed By: #### L 500.2500, L100.0100 ####[facility] [address] [place], [address] RDW CV Normal 11.6-14.6 [facility] Comment on above: Result Comment: Canc elled via OM: Order cancelled - Patient discharged Performed By: #### L 500.2500, L100.0100 ####[facility] [address] [place], [address] RDW SD Normal 35.1-43.9 [facility] Comment on above: Result Comment: Canc elled via OM: Order cancelled - Patient discharged Performed By: #### L 500.2500, L100.0100 ####[facility] [address] [place], [address] WBC Normal 4.4-11.0 [facility] Comment on above: Result Comment: Canc elled via OM: Order cancelled - Patient discharged Performed By: #### L 500.2500, L100.0100 ####[facility] [address] [place], [address] Basic Metabolic Profile (BMP )on 03-10-2025 BUN Normal 4-19 [facility] Comment on above: Result Comment: Canc elled via OM: Order cancelled - Patient discharged Performed By: #### L 100.0100, L500.2500 ####[facility] [address] [place], [address] BUN/CRE Normal 10-20 [facility] Comment on above: Result Comment: Canc elled via OM: Order cancelled - Patient discharged Performed By: #### L 100.0100, L500.2500 ####[facility] [address] [place], [address] Calcium Normal 7.6-11.0 [facility] Comment on above: Result Comment: Canc elled via OM: Order cancelled - Patient discharged Performed By: #### L 100.0100, L500.2500 ####[facility] [address] [place], [address] CL Normal 98-108 [facility] Comment on above: Result Comment: Canc elled via OM: Order cancelled - Patient discharged Performed By: #### L 100.0100, L500.2500 ####[facility] [address] [place], [address] CO2 Normal 21.0-32.0 [facility] Comment on above: Result Comment: Canc elled via OM: Order cancelled - Patient discharged Performed By: #### L 100.0100, L500.2500 ####[facility] [address] [place], [address] CREAT,SERUM Normal 0.70-1.20 [facility] Comment on above: Result Comment: Canc elled via OM: Order cancelled - Patient discharged Performed By: #### L 100.0100, L500.2500 ####[facility] [address] [place], [address] eGFR Normal >60 [facility] Comment on above: Result Comment: Canc elled via OM: Order cancelled - Patient discharged Performed By: #### L 100.0100, L500.2500 ####[facility] [address] [place], [address] GAP Normal 5-15 [facility] Comment on above: Result Comment: Canc elled via OM: Order cancelled - Patient discharged Performed By: #### L 100.0100, L500.2500 ####[facility] [address] [place], [address] GLU Normal 70-99 [facility] Comment on above: Result Comment: Canc elled via OM: Order cancelled - Patient discharged Performed By: #### L 100.0100, L500.2500 ####[facility] [address] [place], [address] Potassium Normal 3.3-5.1 [facility] Comment on above: Result Comment: Canc elled via OM: Order cancelled - Patient discharged Performed By: #### L 100.0100, L500.2500 ####[facility] [address] [place], [address] Basic Metabolic Profile (BMP) Normal 133-145 [facility] Comment on above: Result Comment: Canc elled via OM: Order cancelled - Patient discharged Performed By: #### L 100.0100, L500.2500 ####[facility] [address] [place], [address] CBC W/Diff, Automatedon 07-2 Absolute Neut Normal 2.0-7.7 [facility] Comment on above: Result Comment: Canc elled via OM: Order cancelled - Patient discharged Performed By: #### L 100.0100, L500.2500 ####[facility] [address] [place], [address] HCT Normal 40-54 [facility] Comment on above: Result Comment: Canc elled via OM: Order cancelled - Patient discharged Performed By: #### L 100.0100, L500.2500 ####[facility] [address] [place], [address] HGB Normal 13.0-16.5 [facility] Comment on above: Result Comment: Canc elled via OM: Order cancelled - Patient discharged Performed By: #### L 100.0100, L500.2500 ####[facility] [address] [place], [address] MCH Normal 27.0-32.0 [facility] Comment on above: Result Comment: Canc elled via OM: Order cancelled - Patient discharged Performed By: #### L 100.0100, L500.2500 ####[facility] [address] [place], [address] MCHC Normal 32-36 [facility] Comment on above: Result Comment: Canc elled via OM: Order cancelled - Patient discharged Performed By: #### L 100.0100, L500.2500 ####[facility] [address] [place], [address] MCV Normal 80-94 [facility] Comment on above: Result Comment: Canc elled via OM: Order cancelled - Patient discharged Performed By: #### L 100.0100, L500.2500 ####[facility] [address] [place], [address] NEUT% Normal 47-70 [facility] Comment on above: Result Comment: Canc elled via OM: Order cancelled - Patient discharged Performed By: #### L 100.0100, L500.2500 ####[facility] [address] [place], [address] PLT Normal 150-450 [facility] Comment on above: Result Comment: Canc elled via OM: Order cancelled - Patient discharged Performed By: #### L 100.0100, L500.2500 ####[facility] [address] [place], [address] RBC Normal 4.6-6.2 [facility] Comment on above: Result Comment: Canc elled via OM: Order cancelled - Patient discharged Performed By: #### L 100.0100, L500.2500 ####[facility] [address] [place], [address] RDW CV Normal 11.6-14.6 [facility] Comment on above: Result Comment: Canc elled via OM: Order cancelled - Patient discharged Performed By: #### L 100.0100, L500.2500 ####[facility] [address] [place], [address] RDW SD Normal 35.1-43.9 [facility] Comment on above: Result Comment: Canc elled via OM: Order cancelled - Patient discharged Performed By: #### L 100.0100, L500.2500 ####[facility] [address] [place], [address] WBC Normal 4.4-11.0 [facility] Comment on above: Result Comment: Canc elled via OM: Order cancelled - Patient discharged Performed By: #### L 100.0100, L500.2500 ####[facility] [address] [place], [address] Absolute lymphocyte countOrd ered By: Deric Lantigua on 03-09-2025 Lymphocytes Auto (Unsp spec) [#/Vol] 0.53 10*3/uL Low 0.83-4.51 [facility] Absolute neutrophil countOrd ered By: Deric Lantigua on 03-09-2025 Neutrophils (Bld) [#/Vol] 4.0 10*3/uL 2.0-7.7 [facility] Anion gap in Serum or Plasma Ordered By: Deric Lantigua on 03-09-2025 Anion gap [Moles/Vol] 10 mmol/L 5-15 [facility] Automated lymphocyte count a s percentage of total leukocytesOrdered By: Deric Lantigua on 03-09-2025 Lymphocytes/100 WBC Auto (Unsp spec) 9.7 % Low 19-41 [facility] BUN/creatinine ratioOrdered By: Deric Lantigua on 03-09-2025 Urea nitrogen/Creatinine [Mass ratio] 20.8 mg/mg High 10-20 [facility] Basic Metabolic Profile (BMP )on 03-09-2025 BUN/CRE 20.8 RATIO High 10-20 [facility] Comment on above: Performed By: #### L 100.0100, L500.2500 ####[facility] [address] [place], [address] Calcium [Mass/Vol] 9.0 mg/dL Normal 7.6-11.0 [facility] Comment on above: Performed By: #### L 100.0100, L500.2500 ####[facility] [address] [place], [address] Chloride [Moles/Vol] 101 mmol/L Normal 98-108 [facility] Comment on above: Performed By: #### L 100.0100, L500.2500 ####[facility] [address] [place], [address] CO2 [Moles/Vol] 26.6 mmol/L Normal 21.0-32.0 [facility] Comment on above: Performed By: #### L 100.0100, L500.2500 ####[facility] [address] [place], [address] Creatinine [Mass/Vol] 2.41 mg/dL High 0.70-1.20 [facility] Comment on above: Performed By: #### L 100.0100, L500.2500 ####[facility] [address] [place], [address] ECRCL 24.14 ml/min Low 50-250 [facility] Comment on above: Performed By: #### L 100.0100, L500.2500 ####[facility] [address] [place], [address] GAP 10 Normal 5-15 [facility] Comment on above: Performed By: #### L 100.0100, L500.2500 ####[facility] [address] [place], [address] GFR/1.73 sq M.predicted among non-blacks MDRD (S/P/Bld) [Vol rate/Area] 26 mL/min/{1.73_m2} Low >60 [facility] Comment on above: Result Comment: mL/m in/1.73m2 CKD-EPI Creatinine Equation (2020) Performed By: #### L 100.0100, L500.2500 ####[facility] [address] [place], [address] Glucose [Mass/Vol] 118 mg/dL High 70-99 [facility] Comment on above: Performed By: #### L 100.0100, L500.2500 ####[facility] [address] [place], [address] Potassium [Moles/Vol] 4.3 mmol/L Normal 3.3-5.1 [facility] Comment on above: Performed By: #### L 100.0100, L500.2500 ####[facility] [address] [place], [address] Sodium [Moles/Vol] 138 mmol/L Normal 133-145 [facility] Comment on above: Performed By: #### L 100.0100, L500.2500 ####[facility] [address] [place], [address] Urea nitrogen [Mass/Vol] 50 mg/dL High 4-19 [facility] Comment on above: Performed By: #### L 100.0100, L500.2500 ####[facility] [address] [place], [address] Basophil percentageOrdered B y: Deric Lantigua on 03-09-2025 Basophils/100 WBC (Bld) 0.2 % 0-1 [facility] Bedside Glucoseon 03-09-2025 FINGERSTICK GLU 184 mg/dL High 74-106 [facility] Comment on above: Result Comment: KODY STRONG OF PATIENT CARE PER NURSING PROTOCOL Performed By: #### L 501.080 ####[facility] [address] [place], [address] FINGERSTICK GLU 112 mg/dL High 74-106 [facility] Comment on above: Result Comment: KODY STRONG OF PATIENT CARE PER NURSING PROTOCOL Performed By: #### L 501.080 ####[facility] [address] [place], [address] CBC W/Diff, Automatedon 07-2 -2024 Absolute Lymph 0.53 X10 3/uL Low 0.83-4.51 [facility] Comment on above: Performed By: #### L 100.0100, L500.2500 ####[facility] [address] [place], [address] Absolute Neut 4.0 X10 3/uL Normal 2.0-7.7 [facility] Comment on above: Performed By: #### L 100.0100, L500.2500 ####[facility] [address] [place], [address] Basophils/100 WBC (Bld) 0.2 % Normal 0-1 [facility] Comment on above: Performed By: #### L 100.0100, L500.2500 ####[facility] [address] [place], [address] Eosinophils/100 WBC (Bld) 4.8 % Normal 0-5 [facility] Comment on above: Performed By: #### L 100.0100, L500.2500 ####[facility] [address] [place], [address] Erythrocyte distribution width (RBC) [Ratio] 16.3 % High 11.6-14.6 [facility] Comment on above: Performed By: #### L 100.0100, L500.2500 ####[facility] [address] [place], [address] Hematocrit (Bld) [Volume fraction] 29.6 % Low 40-54 [facility] Comment on above: Performed By: #### L 100.0100, L500.2500 ####[facility] [address] [place], [address] Hemoglobin (Bld) [Mass/Vol] 9.3 g/dL Low 13.0-16.5 [facility] Comment on above: Performed By: #### L 100.0100, L500.2500 ####[facility] [address] [place], [address] IG% 0.600 Normal 0.0-0.9 [facility] Comment on above: Result Comment: IG% - Immature Granulocytes (promyelocytes, myelocytes andmetamyelocytes) > 1% indicates that a LEFT SHIFT is Present. Performed By: #### L 100.0100, L500.2500 ####[facility] [address] [place], [address] Lymphocytes/100 WBC (Bld) 9.7 % Low 19-41 [facility] Comment on above: Performed By: #### L 100.0100, L500.2500 ####[facility] [address] [place], [address] MCH (RBC) [Entitic mass] 27.5 pg Normal 27.0-32.0 [facility] Comment on above: Performed By: #### L 100.0100, L500.2500 ####[facility] [address] [place], [address] MCHC (RBC) [Mass/Vol] 31.4 g/dL Low 32-36 [facility] Comment on above: Performed By: #### L 100.0100, L500.2500 ####[facility] [address] [place], [address] MCV (RBC) [Entitic vol] 87.6 fL Normal 80-94 [facility] Comment on above: Performed By: #### L 100.0100, L500.2500 ####[facility] [address] [place], [address] Monocytes/100 WBC (Bld) 12.1 % High 0-10 [facility] Comment on above: Performed By: #### L 100.0100, L500.2500 ####[facility] [address] [place], [address] Neutrophils/100 WBC (Bld) 72.6 % High 47-70 [facility] Comment on above: Performed By: #### L 100.0100, L500.2500 ####[facility] [address] [place], [address] Nucleated RBC (Bld) [#/Vol] 0 10*3/uL Normal 0-5 [facility] Comment on above: Performed By: #### L 100.0100, L500.2500 ####[facility] [address] [place], [address] Platelet mean volume (Bld) [Entitic vol] 10.0 fL Normal 6.2-12.0 [facility] Comment on above: Performed By: #### L 100.0100, L500.2500 ####[facility] [address] [place], [address] Platelets (Bld) [#/Vol] 162 10*3/uL Normal 150-450 [facility] Comment on above: Performed By: #### L 100.0100, L500.2500 ####[facility] [address] [place], [address] RBC (Bld) [#/Vol] 3.38 10*6/uL Low 4.6-6.2 [facility] Comment on above: Performed By: #### L 100.0100, L500.2500 ####[facility] [address] [place], [address] RDW SD 51.8 fl High 35.1-43.9 [facility] Comment on above: Performed By: #### L 100.0100, L500.2500 ####[facility] [address] [place], [address] WBC (Bld) [#/Vol] 5.5 10*3/uL Normal 4.4-11.0 [facility] Comment on above: Performed By: #### L 100.0100, L500.2500 ####[facility] [address] [facility] [place], [address] Carbon dioxide, total [Moles /volume] in Central venous bloodOrdered By: Deric Lantigua on 03-09-2025 CO2 [Moles/Vol] 26.6 mmol/L 21.0-32.0 [facility] Chloride assayOrdered By: Silvia Lantigua on 03-09-2025 Chloride [Moles/Vol] 101 mmol/L 98-108 [facility] Discharge Instructionon 02-18 Discharge Instruction Normal [facility] Eosinophil percentageOrdered By: Deric Lantigua on 03-09-2025 Eosinophils/100 WBC (Bld) 4.8 % 0-5 [facility] Erythrocyte distribution wid th ratioOrdered By: Deric Lantigua on 03-09-2025 Erythrocyte distribution width (RBC) [Ratio] 16.3 % High 11.6-14.6 [facility] Erythrocyte distribution wid th standard deviationOrdered By: Deric Lantigua on 03-09-2025 Erythrocyte distribution width (RBC) [Ratio] 51.8 fl High 35.1-43.9 [facility] Glomerular filtration rate ( GFR) estimation/1.73 sq m using serum, plasma, or whole bOrdered By: Deric Lantigua on 03-09-2025 GFR/1.73 sq M.predicted among non-blacks MDRD (S/P/Bld) [Vol rate/Area] 26 mL/min/{1.73_m2} Low >60 [facility] Comment on above: mL/min/1.73m2 CKD-EP I Creatinine Equation (2020) Glucose measurement at bedsi deOrdered By: Deric Lantigua on 03-09-2025 Glucose [Mass/Vol] 184 mg/dL High 74-106 [facility] Comment on above: MANAGEMENT OF PATIEN T CARE PER NURSING PROTOCOL Hematocrit Auto (Bld) [Volum e fraction]Ordered By: Deric Lantigua on 03-09-2025 Hematocrit (Bld) [Volume fraction] 29.6 % Low 40-54 [facility] Hemoglobin measurementOrdere d By: Deric Lantigua on 03-09-2025 Hemoglobin (Bld) [Mass/Vol] 9.3 g/dL Low 13.0-16.5 [facility] Immature granulocytes/100 WB C Auto (Bld)Ordered By: Deric Lantigua on 03-09-2025 Immature granulocytes/100 WBC (Bld) 0.600 % 0.0-0.9 [facility] Comment on above: IG% - Immature Granu locytes (promyelocytes, myelocytes and metamyelocytes) > 1% indicates that a LEFT SHIFT is Present. MCV (mean corpuscular volume ) determinationOrdered By: Deric Lantigua on 03-09-2025 MCV (RBC) [Entitic vol] 87.6 fL 80-94 [facility] Mean corpuscular hemoglobin (MCH) determinationOrdered By: Deric Lantigua on 03-09-2025 MCH (RBC) [Entitic mass] 27.5 pg 27.0-32.0 [facility] Mean corpuscular hemoglobin concentration (MCHC) determinationOrdered By: Deric Lantigua on 03-09-2025 MCHC (RBC) [Mass/Vol] 31.4 g/dL Low 32-36 [facility] Mean platelet volume determi nationOrdered By: Deric Lantigua on 03-09-2025 Platelet mean volume (Bld) [Entitic vol] 10.0 fL 6.2-12.0 [facility] Monocyte percentageOrdered B y: Deric Lantigua on 03-09-2025 Monocytes/100 WBC (Bld) 12.1 % High 0-10 [facility] Neutrophil percentageOrdered By: Deric Lantigua on 03-09-2025 Neutrophils/100 WBC (Bld) 72.6 % High 47-70 [facility] Nucleated red blood cell per centageOrdered By: Deric Lantigua on 03-09-2025 Nucleated RBC/100 WBC (Bld) [Ratio] 0 % 0-5 [facility] Platelet countOrdered By: Silvia Lantigua on 03-09-2025 Platelets (Bld) [#/Vol] 162 10*3/uL 150-450 [facility] Potassium measurement (mass/ volume)Ordered By: Deric Lantigua on 03-09-2025 Potassium (Unsp spec) [Mass/Vol] 4.3 mmol/L 3.3-5.1 [facility] RBC Auto (Bld) [#/Vol]Ordere d By: Deric Lantigua on 03-09-2025 RBC (Bld) [#/Vol] 3.38 10*6/uL Low 4.6-6.2 [facility] Serum creatinine measurement (mass/volume)Ordered By: Deric Lantigua on 03-09-2025 Creatinine [Mass/Vol] 2.41 mg/dL High 0.70-1.20 [facility] Serum glucose measurement (m ass/volume)Ordered By: Deric Lantigua on 03-09-2025 Glucose [Mass/Vol] 118 mg/dL High 70-99 [facility] Serum or plasma calcium kingsley urement (mass/volume)Ordered By: Deric Lantigua on 03-09-2025 Calcium [Mass/Vol] 9.0 mg/dL 7.6-11.0 [facility] Serum or plasma urea nitroge n measurement (mass/volume)Ordered By: Deric Lantigua on 03-09-2025 Urea nitrogen [Mass/Vol] 50 mg/dL High 4-19 [facility] Sodium levelOrdered By: Mikki Lantigua on 03-09-2025 Sodium [Moles/Vol] 138 mmol/L 133-145 [facility] White blood cell (WBC) count Ordered By: Deric Lantigua on 03-09-2025 WBC (Bld) [#/Vol] 5.5 10*3/uL 4.4-11.0 [facility] Basic Metabolic Profile (BMP )on 03-08-2025 BUN/CRE 19.9 RATIO Normal 10-20 [facility] Comment on above: Performed By: #### L 500.2500 ####[facility] [address] [place], [address] Calcium [Mass/Vol] 8.8 mg/dL Normal 7.6-11.0 [facility] Comment on above: Performed By: #### L 500.2500 ####[facility] [address] [place], [address] Chloride [Moles/Vol] 99 mmol/L Normal 98-108 [facility] Comment on above: Performed By: #### L 500.2500 ####[facility] [address] [place], [address] CO2 [Moles/Vol] 27.0 mmol/L Normal 21.0-32.0 [facility] Comment on above: Performed By: #### L 500.2500 ####[facility] [address] [place], [address] Creatinine [Mass/Vol] 3.11 mg/dL High 0.70-1.20 [facility] Comment on above: Performed By: #### L 500.2500 ####[facility] [address] [place], [address] ECRCL 17.10 ml/min Low 50-250 [facility] Comment on above: Performed By: #### L 500.2500 ####[facility] [address] [place], [address] GAP 10 Normal 5-15 [facility] Comment on above: Performed By: #### L 500.2500 ####[facility] [address] [place], [address] GFR/1.73 sq M.predicted among non-blacks MDRD (S/P/Bld) [Vol rate/Area] 19 mL/min/{1.73_m2} Low >60 [facility] Comment on above: Result Comment: mL/m in/1.73m2 CKD-EPI Creatinine Equation (2020) Performed By: #### L 500.2500 ####[facility] [address] [place], [address] Glucose [Mass/Vol] 127 mg/dL High 70-99 [facility] Comment on above: Performed By: #### L 500.2500 ####[facility] [address] [place], [address] Potassium [Moles/Vol] 5.3 mmol/L High 3.3-5.1 [facility] Comment on above: Performed By: #### L 500.2500 ####[facility] [address] [place], [address] Sodium [Moles/Vol] 135 mmol/L Normal 133-145 [facility] Comment on above: Performed By: #### L 500.2500 ####[facility] [address] [place], [address] Urea nitrogen [Mass/Vol] 62 mg/dL High 4-19 [facility] Comment on above: Performed By: #### L 500.2500 ####[facility] [address] [place], [address] Bedside Glucoseon 03-08-2025 FINGERSTICK GLU 132 mg/dL High 74-106 [facility] Comment on above: Result Comment: KODY GEMENT OF PATIENT CARE PER NURSING PROTOCOL Performed By: #### L 501.080 ####[facility] [address] [place], [address] FINGERSTICK GLU 142 mg/dL High 74-106 [facility] Comment on above: Result Comment: KODY GEMENT OF PATIENT CARE PER NURSING PROTOCOL Performed By: #### L 501.080 ####[facility] [address] [place], [address] FINGERSTICK GLU 128 mg/dL High 74-106 [facility] Comment on above: Result Comment: KODY GEMENT OF PATIENT CARE PER NURSING PROTOCOL Performed By: #### L 501.080 ####[facility] [address] [place], [address] FINGERSTICK GLU 122 mg/dL High 74-106 [facility] Comment on above: Result Comment: KODY GEMENT OF PATIENT CARE PER NURSING PROTOCOL Performed By: #### L 501.080 ####[facility] [address] [place], [address] Magnesiumon 03-08-2025 Magnesium [Mass/Vol] 2.3 mg/dL High 1.5-2.2 [facility] Comment on above: Performed By: #### L 501.5200 ####[facility] [address] [place], [address] Magnesium measurement (mass/ volume)Ordered By: Nicola Madison on 03-08-2025 Magnesium (Unsp spec) [Mass/Vol] 2.3 mg/dL High 1.5-2.2 [facility] Potassiumon 03-08-2025 Potassium [Moles/Vol] 5.5 mmol/L High 3.3-5.1 [facility] Comment on above: Performed By: #### L 501.5600 ####[facility] [address] [place], [address] Basic Metabolic Profile (BMP )on 03-07-2025 BUN/CRE 18.2 RATIO Normal 10-20 [facility] Comment on above: Performed By: #### L 500.2500 ####[facility] [address] [place], [address] Calcium [Mass/Vol] 8.7 mg/dL Normal 7.6-11.0 [facility] Comment on above: Performed By: #### L 500.2500 ####[facility] [address] [place], [address] Chloride [Moles/Vol] 97 mmol/L Low 98-108 [facility] Comment on above: Performed By: #### L 500.2500 ####[facility] [address] [place], [address] CO2 [Moles/Vol] 26.3 mmol/L Normal 21.0-32.0 [facility] Comment on above: Performed By: #### L 500.2500 ####[facility] [address] [place], [address] Creatinine [Mass/Vol] 3.09 mg/dL High 0.70-1.20 [facility] Comment on above: Performed By: #### L 500.2500 ####[facility] [address] [place], [address] ECRCL 17.21 ml/min Low 50-250 [facility] Comment on above: Performed By: #### L 500.2500 ####[facility] [address] [place], [address] GAP 10 Normal 5-15 [facility] Comment on above: Performed By: #### L 500.2500 ####[facility] [address] [place], [address] GFR/1.73 sq M.predicted among non-blacks MDRD (S/P/Bld) [Vol rate/Area] 20 mL/min/{1.73_m2} Low >60 [facility] Comment on above: Result Comment: mL/m in/1.73m2 CKD-EPI Creatinine Equation (2020) Performed By: #### L 500.2500 ####[facility] [address] [place], [address] Glucose [Mass/Vol] 126 mg/dL High 70-99 [facility] Comment on above: Performed By: #### L 500.2500 ####[facility] [address] [place], [address] Potassium [Moles/Vol] 4.8 mmol/L Normal 3.3-5.1 [facility] Comment on above: Performed By: #### L 500.2500 ####[facility] [address] [place], [address] Sodium [Moles/Vol] 134 mmol/L Normal 133-145 [facility] Comment on above: Performed By: #### L 500.2500 ####[facility] [address] [place], [address] Urea nitrogen [Mass/Vol] 56 mg/dL High 4-19 [facility] Comment on above: Performed By: #### L 500.2500 ####[facility] [address] [place], [address] Bedside Glucoseon 03-07-2025 FINGERSTICK GLU 151 mg/dL High 74-106 [facility] Comment on above: Result Comment: KODY GEMENT OF PATIENT CARE PER NURSING PROTOCOL Performed By: #### L 501.080 ####[facility] [address] [place], [address] FINGERSTICK GLU 191 mg/dL High 74-106 [facility] Comment on above: Result Comment: KODY GEMENT OF PATIENT CARE PER NURSING PROTOCOL Performed By: #### L 501.080 ####[facility] [address] [place], [address] FINGERSTICK GLU 184 mg/dL High 74-106 [facility] Comment on above: Result Comment: KODY GEMENT OF PATIENT CARE PER NURSING PROTOCOL Performed By: #### L 501.080 ####[facility] [address] [place], [address] FINGERSTICK GLU 127 mg/dL High 74-106 [facility] Comment on above: Result Comment: KODY GEMENT OF PATIENT CARE PER NURSING PROTOCOL Performed By: #### L 501.080 ####[facility] [address] [place], [address] Urine Cultureon 03-07-2025 [facility] Comments: On UA samp le of 03/04 Culture exhibits no growth. Normal [facility] Comment on above: Performed By: #### M 100.2200 ####[facility] [address] [place], [address] Basic Metabolic Profile (BMP )on 03-06-2025 BUN/CRE 17.8 RATIO Normal 10-20 [facility] Comment on above: Performed By: #### L 500.2500, L501.2300 ####[facility] [address] [place], [address] Calcium [Mass/Vol] 9.1 mg/dL Normal 7.6-11.0 [facility] Comment on above: Performed By: #### L 500.2500, L501.2300 ####[facility] [address] [place], [address] Chloride [Moles/Vol] 99 mmol/L Normal 98-108 [facility] Comment on above: Performed By: #### L 500.2500, L501.2300 ####[facility] [address] [place], [address] CO2 [Moles/Vol] 31.2 mmol/L Normal 21.0-32.0 [facility] Comment on above: Performed By: #### L 500.2500, L501.2300 ####[facility] [address] [place], [address] Creatinine [Mass/Vol] 2.23 mg/dL High 0.70-1.20 [facility] Comment on above: Performed By: #### L 500.2500, L501.2300 ####[facility] [address] [place], [address] ECRCL 23.84 ml/min Low 50-250 [facility] Comment on above: Performed By: #### L 500.2500, L501.2300 ####[facility] [address] [place], [address] GAP 8 Normal 5-15 [facility] Comment on above: Performed By: #### L 500.2500, L501.2300 ####[facility] [address] [place], [address] GFR/1.73 sq M.predicted among non-blacks MDRD (S/P/Bld) [Vol rate/Area] 29 mL/min/{1.73_m2} Low >60 [facility] Comment on above: Result Comment: mL/m in/1.73m2 CKD-EPI Creatinine Equation (2020) Performed By: #### L 500.2500, L501.2300 ####[facility] [address] [place], [address] Glucose [Mass/Vol] 118 mg/dL High 70-99 [facility] Comment on above: Performed By: #### L 500.2500, L501.2300 ####[facility] [address] [place], [address] Potassium [Moles/Vol] 4.7 mmol/L Normal 3.3-5.1 [facility] Comment on above: Performed By: #### L 500.2500, L501.2300 ####[facility] [address] [place], [address] Sodium [Moles/Vol] 138 mmol/L Normal 133-145 [facility] Comment on above: Performed By: #### L 500.2500, L501.2300 ####[facility] [address] [place], [address] Urea nitrogen [Mass/Vol] 40 mg/dL High 4-19 [facility] Comment on above: Performed By: #### L 500.2500, L501.2300 ####[facility] [address] [place], [address] Bedside Glucoseon 03-06-2025 FINGERSTICK GLU 146 mg/dL High -106 [facility] Comment on above: Result Comment: KODY GEMENT OF PATIENT CARE PER NURSING PROTOCOL Performed By: #### L 501.080 ####[facility] [address] [place], [address] FINGERSTICK GLU 117 mg/dL High -106 [facility] Comment on above: Result Comment: KODY GEMENT OF PATIENT CARE PER NURSING PROTOCOL Performed By: #### L 501.080 ####[facility] [address] [place], [address] FINGERSTICK GLU 229 mg/dL High [facility]106 [facility] Comment on above: Result Comment: KODY GEMENT OF PATIENT CARE PER NURSING PROTOCOL Performed By: #### L 501.080 ####[facility] [address] [place], [address] FINGERSTICK GLU 109 mg/dL High [facility]106 [facility] Comment on above: Result Comment: KODY GEMENT OF PATIENT CARE PER NURSING PROTOCOL Performed By: #### L 501.080 ####[facility] [address] [place], [address] FINGERSTICK GLU 140 mg/dL High [facility]106 [facility] Comment on above: Result Comment: KODY GEMENT OF PATIENT CARE PER NURSING PROTOCOL Performed By: #### L 501.080 ####[facility] [address] [place], [address] Consultation - Cardiologyon 03-06-2025 Consultation - Cardiology Normal [facility] Phosphoruson 03-06-2025 Phosphate [Mass/Vol] 3.9 mg/dL Normal 2.7-4.5 [facility] Comment on above: Performed By: #### L 500.2500, L501.2300 ####[facility] [address] [place], [address] Urine cultureOrdered By: Kavita Lantigua on 03-06-2025 Bacteria identified Cx Nom (U) Culture exhibits no growth. [facility] Bedside Glucoseon 03-05-2025 FINGERSTICK GLU 111 mg/dL High 74-106 [facility] Comment on above: Result Comment: KODY GEMENT OF PATIENT CARE PER NURSING PROTOCOL Performed By: #### L 501.080 ####[facility] [address] [place], [address] FINGERSTICK GLU 152 mg/dL High 74-106 [facility] Comment on above: Result Comment: KODY GEMENT OF PATIENT CARE PER NURSING PROTOCOL Performed By: #### L 501.080 ####[facility] [address] [place], [address] FINGERSTICK GLU 159 mg/dL High 74-106 [facility] Comment on above: Result Comment: KODY GEMENT OF PATIENT CARE PER NURSING PROTOCOL Performed By: #### L 501.080 ####[facility] [address] [place], [address] Bilirubin, totalOrdered By: Nicola Madison on 03-05-2025 Bilirubin [Mass/Vol] 0.46 mg/dL 0.00-1.30 [facility] CBC W/Diff, Automatedon 02-17 Absolute Lymph 0.72 X10 3/uL Low 0.83-4.51 [facility] Comment on above: Performed By: #### L 501.2300, L100.0100 ####[facility] [address] [place], [address] Absolute Neut 5.8 X10 3/uL Normal 2.0-7.7 [facility] Comment on above: Performed By: #### L 501.2300, L100.0100 ####[facility] [address] [place], [address] Basophils/100 WBC (Bld) 0.4 % Normal 0-1 [facility] Comment on above: Performed By: #### L 501.2300, L100.0100 ####[facility] [address] [place], [address] Eosinophils/100 WBC (Bld) 2.0 % Normal 0-5 [facility] Comment on above: Performed By: #### L 501.2300, L100.0100 ####[facility] [address] [place], [address] Erythrocyte distribution width (RBC) [Ratio] 16.6 % High 11.6-14.6 [facility] Comment on above: Performed By: #### L 501.2300, L100.0100 ####[facility] [address] [place], [address] Hematocrit (Bld) [Volume fraction] 30.1 % Low 40-54 [facility] Comment on above: Performed By: #### L 501.2300, L100.0100 ####[facility] [address] [place], [address] Hemoglobin (Bld) [Mass/Vol] 9.3 g/dL Low 13.0-16.5 [facility] Comment on above: Performed By: #### L 501.2300, L100.0100 ####[facility] [address] [place], [address] IG% 0.300 Normal 0.0-0.9 [facility] Comment on above: Result Comment: IG% - Immature Granulocytes (promyelocytes, myelocytes andmetamyelocytes) > 1% indicates that a LEFT SHIFT is Present. Performed By: #### L 501.2300, L100.0100 ####[facility] [address] [place], [address] Lymphocytes/100 WBC (Bld) 9.5 % Low 19-41 [facility] Comment on above: Performed By: #### L 501.2300, L100.0100 ####[facility] [address] [place], [address] MCH (RBC) [Entitic mass] 27.0 pg Normal 27.0-32.0 [facility] Comment on above: Performed By: #### L 501.2300, L100.0100 ####[facility] [address] [place], [address] MCHC (RBC) [Mass/Vol] 30.9 g/dL Low 32-36 [facility] Comment on above: Performed By: #### L 501.2300, L100.0100 ####[facility] [address] [place], [address] MCV (RBC) [Entitic vol] 87.5 fL Normal 80-94 [facility] Comment on above: Performed By: #### L 501.2300, L100.0100 ####[facility] [address] [place], [address] Monocytes/100 WBC (Bld) 11.4 % High 0-10 [facility] Comment on above: Performed By: #### L 501.2300, L100.0100 ####[facility] [address] [place], [address] Neutrophils/100 WBC (Bld) 76.4 % High 47-70 [facility] Comment on above: Performed By: #### L 501.2300, L100.0100 ####[facility] [address] [place], [address] Nucleated RBC (Bld) [#/Vol] 0 10*3/uL Normal 0-5 [facility] Comment on above: Performed By: #### L 501.2300, L100.0100 ####[facility] [address] [place], [address] Platelet mean volume (Bld) [Entitic vol] 10.7 fL Normal 6.2-12.0 [facility] Comment on above: Performed By: #### L 501.2300, L100.0100 ####[facility] [address] [place], [address] Platelets (Bld) [#/Vol] 181 10*3/uL Normal 150-450 [facility] Comment on above: Performed By: #### L 501.2300, L100.0100 ####[facility] [address] [place], [address] RBC (Bld) [#/Vol] 3.44 10*6/uL Low 4.6-6.2 [facility] Comment on above: Performed By: #### L 501.2300, L100.0100 ####[facility] [address] [place], [address] RDW SD 52.8 fl High 35.1-43.9 [facility] Comment on above: Performed By: #### L 501.2300, L100.0100 ####[facility] [address] [place], [address] WBC (Bld) [#/Vol] 7.6 10*3/uL Normal 4.4-11.0 [facility] Comment on above: Performed By: #### L 501.2300, L100.0100 ####[facility] [address] [place], [address] Calculated very low density lipoprotein (VLDL) cholesterol measurementOrdered By: Nicola Madison on 03-05-2025 Calculated very low density lipoprotein (VLDL) cholesterol measurement 16 mg/dL 5-40 [facility] Chest 1 View (Portable)on Chest 1 View (Portable) Normal [facility] Comprehensive Metabolic Prof ilon 03-05-2025 Albumin [Mass/Vol] 3.4 g/dL Normal 3.4-4.8 [facility] Comment on above: Performed By: #### L 500.4050, L503.7505, L500.4100 ####[facility] [address] [place], [address] Albumin/Globulin [Mass ratio] 0.9 {ratio} Normal 0.9-2.4 [facility] Comment on above: Performed By: #### L 500.4050, L503.7505, L500.4100 ####[facility] [address] [place], [address] ALK PHOS 75 U/L Normal 40-129 [facility] Comment on above: Performed By: #### L 500.4050, L503.7505, L500.4100 ####[facility] [address] [place], [address] ALT [Catalytic activity/Vol] 10 U/L Normal <=46 [facility] Comment on above: Performed By: #### L 500.4050, L503.7505, L500.4100 ####[facility] [address] [place], [address] AST [Catalytic activity/Vol] 15 U/L Normal <=37 [facility] Comment on above: Performed By: #### L 500.4050, L503.7505, L500.4100 ####[facility] [address] [place], [address] Bilirubin [Mass/Vol] 0.46 mg/dL Normal 0.00-1.30 [facility] Comment on above: Performed By: #### L 500.4050, L503.7505, L500.4100 ####[facility] [address] [place], [address] BUN/CRE 18.6 RATIO Normal 10-20 [facility] Comment on above: Performed By: #### L 500.4050, L503.7505, L500.4100 ####[facility] [address] [place], [address] Calcium [Mass/Vol] 9.1 mg/dL Normal 7.6-11.0 [facility] Comment on above: Performed By: #### L 500.4050, L503.7505, L500.4100 ####[facility] [address] [place], [address] Chloride [Moles/Vol] 101 mmol/L Normal 98-108 [facility] Comment on above: Performed By: #### L 500.4050, L503.7505, L500.4100 ####[facility] [address] [place], [address] CO2 [Moles/Vol] 27.2 mmol/L Normal 21.0-32.0 [facility] Comment on above: Performed By: #### L 500.4050, L503.7505, L500.4100 ####[facility] [address] [place], [address] Creatinine [Mass/Vol] 1.95 mg/dL High 0.70-1.20 [facility] Comment on above: Performed By: #### L 500.4050, L503.7505, L500.4100 ####[facility] [address] [place], [address] ECRCL 27.26 ml/min Low 50-250 [facility] Comment on above: Performed By: #### L 500.4050, L503.7505, L500.4100 ####[facility] [address] [place], [address] GAP 10 Normal 5-15 [facility] Comment on above: Performed By: #### L 500.4050, L503.7505, L500.4100 ####[facility] [address] [place], [address] GFR/1.73 sq M.predicted among non-blacks MDRD (S/P/Bld) [Vol rate/Area] 34 mL/min/{1.73_m2} Low >60 [facility] Comment on above: Result Comment: mL/m in/1.73m2 CKD-EPI Creatinine Equation (2020) Performed By: #### L 500.4050, L503.7505, L500.4100 ####[facility] [address] [place], [address] Globulin (S) [Mass/Vol] 3.9 g/dL Normal 2.2-4.2 [facility] Comment on above: Performed By: #### L 500.4050, L503.7505, L500.4100 ####[facility] [address] [place], [address] Glucose [Mass/Vol] 171 mg/dL High 70-99 [facility] Comment on above: Performed By: #### L 500.4050, L503.7505, L500.4100 ####[facility] [address] [place], [address] Potassium [Moles/Vol] 5.0 mmol/L Normal 3.3-5.1 [facility] Comment on above: Performed By: #### L 500.4050, L503.7505, L500.4100 ####[facility] [address] [place], [address] Sodium [Moles/Vol] 138 mmol/L Normal 133-145 [facility] Comment on above: Performed By: #### L 500.4050, L503.7505, L500.4100 ####[facility] [address] [place], [address] T PROT 7.3 g/dL Normal 5.9-8.4 [facility] Comment on above: Performed By: #### L 500.4050, L503.7505, L500.4100 ####[facility] [address] [place], [address] Urea nitrogen [Mass/Vol] 36 mg/dL High 4-19 [facility] Comment on above: Performed By: #### L 500.4050, L503.7505, L500.4100 ####[facility] [address] [place], [address] Echocardiogram study reportO rdered By: Marjorie Green on 03-05-2025 Study report [facility] [address] [place] [address] Echo Complete W/ Contrast 03/05/25 0941 MR#: [id number] Acct: [id number] Name: PEDRO HILLMAN Rep #:[id number] : 1945 80 From: Marjorie Green MD [...] ~ Date Dictated: 03/05/25940 Date Transcribed: 03/05/251151 Lithopone Charger: Signed [facility] Work Phone: [phone] 03-05-2025 Natriuretic peptide B (Bld) [Mass/Vol] 4176 pg/mL High <=1800 [facility] Comment on above: Result Comment: Hear t Failure Unlikely: < 300 pg/mLHeart Failure Likely< 50 Years: > 450 pg/mL50-75 Years: > 900 pg/mL>75 Years: > 1800 pg/mL Performed By: #### L 500.4050, L503.7505, L500.4100 ####[facility] [address] [place], [place], [id number] LDL calc ser/plasOrdered By: Nicola Madison on 03-05-2025 Cholesterol in LDL [Mass/Vol] 63 mg/dL [facility] Comment on above: Jzblcfqvgh=005-893 m g/dL & Higher Xlmv=251 mg/dL or greater Laboratory - Chemistry and C hemistry - challengeOrdered By: Nicola Madison on 03-05-2025 AST [Catalytic activity/Vol] 15 U/L <38 [facility] Lipid Profileon 03-05-2025 CHOL:HDL 3.04 Normal [facility] Comment on above: Performed By: #### L 500.4050, L503.7505, L500.4100 ####[facility] [address] [place], [address] Cholesterol [Mass/Vol] 117 mg/dL Normal <=200 [facility] Comment on above: Result Comment: Chol esterol level, Desirable <200 mg/dLBorderline high cholesterol 200-239 mg/dLHigh cholesterol >=240 mg/dLRecommendations of the NCEP Adult Treatment Panel for thefollowing risk-cutoff thresholds for the [place] [facility]. Performed By: #### L 500.4050, L503.7505, L500.4100 ####[facility] [address] [place], [address] Cholesterol in HDL [Mass/Vol] 39 mg/dL Low [facility] Comment on above: Result Comment: Gia onal Cholesterol Education Program (NCEP) guidelines:<40 mg/dL: Low HDL-cholesterol (major risk factor for CHD)>= 60 mg/dL: High HDL-cholesterol (negative risk factor forCHD)HDL-cholesterol is affected by a number of factors, e.g.smoking, exercise, hormones, sex and age. Performed By: #### L 500.4050, L503.7505, L500.4100 ####[facility] [address] [place], [address] Cholesterol in LDL [Mass/Vol] 63 mg/dL Normal [facility] Comment on above: Result Comment: Bord tqvugh=796-372 mg/dL Higher Ygpy=229 mg/dL or greater Performed By: #### L 500.4050, L503.7505, L500.4100 ####[facility] [address] [place], [address] Cholesterol in VLDL [Mass/Vol] 16 mg/dL Normal 5-40 [facility] Comment on above: Performed By: #### L 500.4050, L503.7505, L500.4100 ####[facility] [address] [place], [place], [address] Triglyceride [Mass/Vol] 79 mg/dL Normal [facility] Comment on above: Result Comment: The drugs N-Acetylcysteine and Metamizole may falselydepress this assay.Normal range: <150 mg/dLBorderline High: 150-199 mg/dLHigh: 200-499 mg/dLVery High: >500 mg/dL Performed By: #### L 500.4050, L503.7505, L500.4100 ####[facility] [address] [place], [address] Natriuretic peptide.B prohor girish N-Terminal [Mass/volume] in Serum or PlasmaOrdered By: Nicola Madison on 03-05-2025 Natriuretic peptide.B prohormone N-Terminal [Mass/Vol] 4176 pg/mL High <1800 [facility] Comment on above: Heart Failure Unlike ly: < 300 pg/mLHeart Failure Likely< 50 Years: > 450 pg/mL50-75 Years: > 900 pg/mL>75 Years: > 1800 pg/mL No Panel InformationOrdered By: Nicola Madison on 03-05-2025 15 U/L <38 [facility] Phosphoruson 03-05-2025 Phosphate [Mass/Vol] 3.3 mg/dL Normal 2.7-4.5 [facility] Comment on above: Performed By: #### L 501.2300, L100.0100 ####[facility] [address] [place], [address] Screening total cholesterol/ high density lipoprotein (HDL) cholesterol ratioOrdered By: Nicola Madison on 03-05-2025 Cholesterol.total/Choles terol in HDL [Mass ratio] 3.04 {ratio} [facility] Serum globulin measurementOr dered By: Nicola Madison on 03-05-2025 Globulin (S) [Mass/Vol] 3.9 g/dL 2.2-4.2 [facility] Serum or plasma alanine ortiz otransferase (ALT) measurementOrdered By: Nicola Madison on 03-05-2025 ALT [Catalytic activity/Vol] 10 U/L <47 [facility] Serum or plasma albumin kingsley urement (mass/volume)Ordered By: Nicola Madison on 03-05-2025 Albumin [Mass/Vol] 3.4 g/dL 3.4-4.8 [facility] Serum or plasma albumin/glob ulin mass ratioOrdered By: Nicola Madison on 03-05-2025 Albumin/Globulin [Mass ratio] 0.9 {ratio} 0.9-2.4 [facility] Serum or plasma alkaline roosevelt sphatase measurementOrdered By: Nicola Madison on 03-05-2025 ALP [Catalytic activity/Vol] 75 U/L 40-129 [facility] Serum or plasma cholesterol in HDL measurement (mass/volume)Ordered By: Nicola Madison on 03-05-2025 Cholesterol in HDL [Mass/Vol] 39 mg/dL Low >40 [facility] Comment on above: National Cholesterol Education Program (NCEP) guidelines:<40 mg/dL: Low HDL-cholesterol (major risk factor for CHD)>= 60 mg/dL: High HDL-cholesterol (negative risk factor for CHD)HDL-cholesterol is affected by a number of factors, e.g. smoking, exercise, hormones, sex and age. Serum or plasma cholesterol measurement (mass/volume)Ordered By: Nicola Madison on 03-05-2025 Cholesterol [Mass/Vol] 117 mg/dL <201 [facility] Comment on above: Cholesterol level, D esirable <200 mg/dLBorderline high cholesterol 200-239 mg/dLHigh cholesterol >=240 mg/dLRecommendations of the NCEP Adult Treatment Panel for the following risk-cutoff thresholds for the [place] population. Total proteinOrdered By: Jacob Madison on 03-05-2025 Protein [Mass/Vol] 7.3 g/dL 5.9-8.4 [facility] Triglycerides measurementOrd ered By: Nicola Madison on 03-05-2025 Triglyceride [Mass/Vol] 79 mg/dL <199 [facility] Comment on above: The drugs N-Acetylcy steine and Metamizole may falsely depress this assay. Normal range: <150 mg/dLBorderline High: 150-199 mg/dLHigh: 200-499 mg/dLVery High: >500 mg/dL Absolute lymphocyte countOrd ered By: Chris Ochoa on 03-04-2025 Lymphocytes Auto (Unsp spec) [#/Vol] 0.77 10*3/uL Low 0.83-4.51 [facility] Absolute neutrophil countOrd ered By: Chris Ochoa on 03-04-2025 Neutrophils (Bld) [#/Vol] 6.0 10*3/uL 2.0-7.7 [facility] Anion gap in Serum or Plasma Ordered By: Chris Ochoa on 03-04-2025 Anion gap [Moles/Vol] 8 mmol/L 5-15 [facility] Automated lymphocyte count a s percentage of total leukocytesOrdered By: Chris Ochoa on 03-04-2025 Lymphocytes/100 WBC Auto (Unsp spec) 10.1 % Low 19-41 [facility] BUN/creatinine ratioOrdered By: Chris Ochoa on 03-04-2025 Urea nitrogen/Creatinine [Mass ratio] 19.7 mg/mg 10- [facility] Basic Metabolic Profile (BMP )on 03-04-2025 BUN/CRE 19.7 RATIO Normal 10-20 [facility] Comment on above: Performed By: #### L 501.4021, L100.0100, L503.7505, L500.2500 ####[facility] [address] [place], [address] Calcium [Mass/Vol] 9.3 mg/dL Normal 7.6-11.0 [facility] Comment on above: Performed By: #### L 501.4021, L100.0100, L503.7505, L500.2500 ####[facility] [address] [place], [address] Chloride [Moles/Vol] 102 mmol/L Normal 98-108 [facility] Comment on above: Performed By: #### L 501.4021, L100.0100, L503.7505, L500.2500 ####[facility] [address] [place], [address] CO2 [Moles/Vol] 28.6 mmol/L Normal 21.0-32.0 [facility] Comment on above: Performed By: #### L 501.4021, L100.0100, L503.7505, L500.2500 ####[facility] [address] [place], [address] Creatinine [Mass/Vol] 1.86 mg/dL High 0.70-1.20 [facility] Comment on above: Performed By: #### L 501.4021, L100.0100, L503.7505, L500.2500 ####[facility] [address] [place], [address] ECRCL 28.58 ml/min Low 50-250 [facility] Comment on above: Performed By: #### L 501.4021, L100.0100, L503.7505, L500.2500 ####[facility] [address] [place], [address] GAP 8 Normal 5-15 [facility] Comment on above: Performed By: #### L 501.4021, L100.0100, L503.7505, L500.2500 ####[facility] [address] [place], [address] GFR/1.73 sq M.predicted among non-blacks MDRD (S/P/Bld) [Vol rate/Area] 36 mL/min/{1.73_m2} Low >60 [facility] Comment on above: Result Comment: mL/m in/1.73m2 CKD-EPI Creatinine Equation (2020) Performed By: #### L 501.4021, L100.0100, L503.7505, L500.2500 ####[facility] [address] [place], [address] Glucose [Mass/Vol] 124 mg/dL High 70-99 [facility] Comment on above: Performed By: #### L 501.4021, L100.0100, L503.7505, L500.2500 ####[facility] [address] [place], [address] Potassium [Moles/Vol] 5.2 mmol/L High 3.3-5.1 [facility] Comment on above: Performed By: #### L 501.4021, L100.0100, L503.7505, L500.2500 ####[facility] [address] [place], [address] Sodium [Moles/Vol] 138 mmol/L Normal 133-145 [facility] Comment on above: Performed By: #### L 501.4021, L100.0100, L503.7505, L500.2500 ####[facility] [address] [place], [address] Urea nitrogen [Mass/Vol] 37 mg/dL High 4-19 [facility] Comment on above: Performed By: #### L 501.4021, L100.0100, L503.7505, L500.2500 ####[facility] [address] [place], [address] Basophil percentageOrdered B y: Chris Ochoa on 03-04-2025 Basophils/100 WBC (Bld) 0.4 % 0-1 [facility] Bedside Glucoseon 03-04-2025 FINGERSTICK GLU 80 mg/dL Normal 74-106 [facility] Comment on above: Result Comment: KODY STRONG OF PATIENT CARE PER NURSING PROTOCOL Performed By: #### L 501.080 ####[facility] [address] [place], [address] Bilirubin Test strip Ql (U)O rdered By: Nicola Madison on 03-04-2025 Bilirubin Ql (U) Negative Negative [facility] CBC W/Diff, Automatedon 07-1 -2024 Absolute Lymph 0.77 X10 3/uL Low 0.83-4.51 [facility] Comment on above: Performed By: #### L 501.4021, L100.0100, L503.7505, L500.2500 ####[facility] [address] [place], [address] Absolute Neut 6.0 X10 3/uL Normal 2.0-7.7 [facility] Comment on above: Performed By: #### L 501.4021, L100.0100, L503.7505, L500.2500 ####[facility] [address] [place], [address] Basophils/100 WBC (Bld) 0.4 % Normal 0-1 [facility] Comment on above: Performed By: #### L 501.4021, L100.0100, L503.7505, L500.2500 ####[facility] [address] [place], [address] Eosinophils/100 WBC (Bld) 1.6 % Normal 0-5 [facility] Comment on above: Performed By: #### L 501.4021, L100.0100, L503.7505, L500.2500 ####[facility] [address] [place], [address] Erythrocyte distribution width (RBC) [Ratio] 16.5 % High 11.6-14.6 [facility] Comment on above: Performed By: #### L 501.4021, L100.0100, L503.7505, L500.2500 ####[facility] [address] [place], [address] Hematocrit (Bld) [Volume fraction] 33.4 % Low 40-54 [facility] Comment on above: Performed By: #### L 501.4021, L100.0100, L503.7505, L500.2500 ####[facility] [address] [place], [address] Hemoglobin (Bld) [Mass/Vol] 10.1 g/dL Low 13.0-16.5 [facility] Comment on above: Performed By: #### L 501.4021, L100.0100, L503.7505, L500.2500 ####[facility] [address] [place], [address] IG% 0.700 Normal 0.0-0.9 [facility] Comment on above: Result Comment: IG% - Immature Granulocytes (promyelocytes, myelocytes andmetamyelocytes) > 1% indicates that a LEFT SHIFT is Present. Performed By: #### L 501.4021, L100.0100, L503.7505, L500.2500 ####[facility] [address] [place], [address] Lymphocytes/100 WBC (Bld) 10.1 % Low 19-41 [facility] Comment on above: Performed By: #### L 501.4021, L100.0100, L503.7505, L500.2500 ####[facility] [address] [place], [address] MCH (RBC) [Entitic mass] 27.0 pg Normal 27.0-32.0 [facility] Comment on above: Performed By: #### L 501.4021, L100.0100, L503.7505, L500.2500 ####[facility] [address] [place], [address] MCHC (RBC) [Mass/Vol] 30.2 g/dL Low 32-36 [facility] Comment on above: Performed By: #### L 501.4021, L100.0100, L503.7505, L500.2500 ####[facility] [address] [place], [address] MCV (RBC) [Entitic vol] 89.3 fL Normal 80-94 [facility] Comment on above: Performed By: #### L 501.4021, L100.0100, L503.7505, L500.2500 ####[facility] [address] [place], [address] Monocytes/100 WBC (Bld) 9.1 % Normal 0-10 [facility] Comment on above: Performed By: #### L 501.4021, L100.0100, L503.7505, L500.2500 ####[facility] [address] [place], [address] Neutrophils/100 WBC (Bld) 78.1 % High 47-70 [facility] Comment on above: Performed By: #### L 501.4021, L100.0100, L503.7505, L500.2500 ####[facility] [address] [place], [address] Nucleated RBC (Bld) [#/Vol] 0 10*3/uL Normal 0-5 [facility] Comment on above: Performed By: #### L 501.4021, L100.0100, L503.7505, L500.2500 ####[facility] [address] [place], [address] Platelet mean volume (Bld) [Entitic vol] 10.2 fL Normal 6.2-12.0 [facility] Comment on above: Performed By: #### L 501.4021, L100.0100, L503.7505, L500.2500 ####[facility] [address] [place], [address] Platelets (Bld) [#/Vol] 189 10*3/uL Normal 150-450 [facility] Comment on above: Performed By: #### L 501.4021, L100.0100, L503.7505, L500.2500 ####[facility] [address] [place], [address] RBC (Bld) [#/Vol] 3.74 10*6/uL Low 4.6-6.2 [facility] Comment on above: Performed By: #### L 501.4021, L100.0100, L503.7505, L500.2500 ####[facility] [address] [place], [address] RDW SD 54.2 fl High 35.1-43.9 [facility] Comment on above: Performed By: #### L 501.4021, L100.0100, L503.7505, L500.2500 ####[facility] [address] [place], [address] WBC (Bld) [#/Vol] 7.6 10*3/uL Normal 4.4-11.0 [facility] Comment on above: Performed By: #### L 501.4021, L100.0100, L503.7505, L500.2500 ####[facility] [address] [place], [address] Carbon dioxide, total [Moles /volume] in Central venous bloodOrdered By: Chris Ochoa on 03-04-2025 CO2 [Moles/Vol] 28.6 mmol/L 21.0-32.0 [facility] Chest PA and Lateralon 03-04 Chest PA and Lateral Normal [facility] Chloride assayOrdered By: Chino Ochoa on 03-04-2025 Chloride [Moles/Vol] 102 mmol/L 98-108 [facility] Echo Complete W/ Contraston 03-04-2025 Echo Complete W/ Contrast Normal [facility] Emergency Department Summary on 03-04-2025 Emergency Department Summary Normal [facility] Eosinophil percentageOrdered By: Chris Ochoa on 03-04-2025 Eosinophils/100 WBC (Bld) 1.6 % 0-5 [facility] Erythrocyte distribution wid th ratioOrdered By: Chris Ochoa on 03-04-2025 Erythrocyte distribution width (RBC) [Ratio] 16.5 % High 11.6-14.6 [facility] Erythrocyte distribution wid th standard deviationOrdered By: Chris Ochoa on 03-04-2025 Erythrocyte distribution width (RBC) [Ratio] 54.2 fl High 35.1-43.9 [facility] Glomerular filtration rate ( GFR) estimation/1.73 sq m using serum, plasma, or whole bOrdered By: Chris Ochoa on 03-04-2025 GFR/1.73 sq M.predicted among non-blacks MDRD (S/P/Bld) [Vol rate/Area] 36 mL/min/{1.73_m2} Low >60 [facility] Comment on above: mL/min/1.73m2 CKD-EP I Creatinine Equation (2020) H AND P Exam - Hospitaliston 03-04-2025 H&P Exam - Hospitalist Normal [facility] Hematocrit Auto (Bld) [Volum e fraction]Ordered By: Chris Ochoa on 03-04-2025 Hematocrit (Bld) [Volume fraction] 33.4 % Low 40-54 [facility] Hemoglobin A1con 03-04-2025 HbA1c (Bld) [Mass fraction] 6.3 % High <=5.6 [facility] Comment on above: Result Comment: Norm al < 5.7 % Prediabetic 5.7 - 6.4 % Diabetic >or= 6.5 % Please note range changes. Performed By: #### L 501.5200, L501.9985, L501.9520 ####[facility] [address] [place], [place], [id number] Hemoglobin A1c percentageOrd ered By: Nicola Madison on 03-04-2025 HbA1c (Bld) [Mass fraction] 6.3 % High <5.7 [facility] Comment on above: Normal < 5.7 % Predi abetic 5.7 - 6.4 % Diabetic >or= 6.5 % Please note range changes. Hemoglobin measurementOrdere d By: Chris Ochoa on 03-04-2025 Hemoglobin (Bld) [Mass/Vol] 10.1 g/dL Low 13.0-16.5 [facility] Immature granulocytes/100 WB C Auto (Bld)Ordered By: Chris Ochoa on 03-04-2025 Immature granulocytes/100 WBC (Bld) 0.700 % 0.0-0.9 [facility] Comment on above: IG% - Immature Granu locytes (promyelocytes, myelocytes and metamyelocytes) > 1% indicates that a LEFT SHIFT is Present. Ketones Test strip Ql (U)Ord ered By: Nicola Madison on 03-04-2025 Ketones Ql (U) Negative Negative [facility] L499.0042on 03-04-2025 Trop T High Sen 45 ng/L High <=22 [facility] Comment on above: Performed By: #### L 499.0042 ####[facility] [address] [place], [address] L499.0043on 03-04-2025 Trop T High Sen 42 ng/L High <=22 [facility] Comment on above: Performed By: #### L 499.0043 ####[facility] [address] [place], [address] L501.4021on 03-04-2025 Trop T High Sen 44 ng/L High <=22 [facility] Comment on above: Performed By: #### L 501.4021, L100.0100, L503.7505, L500.2500 ####[facility] [address] [place], [address] L503.7505on 03-04-2025 Natriuretic peptide B (Bld) [Mass/Vol] 3316 pg/mL High <=1800 [facility] Comment on above: Result Comment: Hear t Failure Unlikely: < 300 pg/mLHeart Failure Likely< 50 Years: > 450 pg/mL50-75 Years: > 900 pg/mL>75 Years: > 1800 pg/mL Performed By: #### L 501.4021, L100.0100, L503.7505, L500.2500 ####[facility] [address] [place], [address] MCV (mean corpuscular volume ) determinationOrdered By: Chris Ochoa on 03-04-2025 MCV (RBC) [Entitic vol] 89.3 fL 80-94 [facility] Magnesiumon 03-04-2025 Magnesium [Mass/Vol] 2.0 mg/dL Normal 1.5-2.2 [facility] Comment on above: Performed By: #### L 501.5200, L501.9985, L501.9520 ####[facility] [address] [place], [address] Mean corpuscular hemoglobin (MCH) determinationOrdered By: Chris Ochoa on 03-04-2025 MCH (RBC) [Entitic mass] 27.0 pg 27.0-32.0 [facility] Mean corpuscular hemoglobin concentration (MCHC) determinationOrdered By: Chris Ochoa on 03-04-2025 MCHC (RBC) [Mass/Vol] 30.2 g/dL Low 32-36 [facility] Mean platelet volume determi nationOrdered By: Chris Ochoa on 03-04-2025 Platelet mean volume (Bld) [Entitic vol] 10.2 fL 6.2-12.0 [facility] Microscopic analysis of urin e for red blood cells (RBC)Ordered By: Nicola Madison on 03-04-2025 Microscopic analysis of urine for red blood cells (RBC) 5-10 SEEN /hpf 0-5 [facility] Monocyte percentageOrdered B y: Chris Ochoa on 03-04-2025 Monocytes/100 WBC (Bld) 9.1 % 0-10 [facility] Mucus LM Ql (Urine sed)Order ed By: Nicola Madison on 03-04-2025 Mucus Ql (Urine sed) 0 SEEN /hpf [facility] Natriuretic peptide.B prohor girish N-Terminal [Mass/volume] in Serum or PlasmaOrdered By: Chris Ochoa on 03-04-2025 Natriuretic peptide.B prohormone N-Terminal [Mass/Vol] 3316 pg/mL High <1800 [facility] Comment on above: Heart Failure Unlike ly: < 300 pg/mLHeart Failure Likely< 50 Years: > 450 pg/mL50-75 Years: > 900 pg/mL>75 Years: > 1800 pg/mL Neutrophil percentageOrdered By: Chris Ochoa on 03-04-2025 Neutrophils/100 WBC (Bld) 78.1 % High 47-70 [facility] Nitrite Test strip Ql (U)Ord ered By: Nicola Madison on 03-04-2025 Nitrite Ql (U) Positive High Negative [facility] Nucleated red blood cell per centageOrdered By: Chris Ochoa on 03-04-2025 Nucleated RBC/100 WBC (Bld) [Ratio] 0 % 0-5 [facility] Platelet countOrdered By: Chino Ochoa on 03-04-2025 Platelets (Bld) [#/Vol] 189 10*3/uL 150-450 [facility] Potassium measurement (mass/ volume)Ordered By: Chris Ochoa on 03-04-2025 Potassium (Unsp spec) [Mass/Vol] 5.2 mmol/L High 3.3-5.1 [facility] Protein Test strip Ql (U)Ord ered By: Nicola Madison on 03-04-2025 Protein Ql (U) 100 mg/dl High Negative [facility] RBC Auto (Bld) [#/Vol]Ordere d By: Chris Ochoa on 03-04-2025 RBC (Bld) [#/Vol] 3.74 10*6/uL Low 4.6-6.2 [facility] Serum creatinine measurement (mass/volume)Ordered By: Chris Ochoa on 03-04-2025 Creatinine [Mass/Vol] 1.86 mg/dL High 0.70-1.20 [facility] Serum glucose measurement (m ass/volume)Ordered By: Chris Ochoa on 03-04-2025 Glucose [Mass/Vol] 124 mg/dL High 70-99 [facility] Serum or plasma calcium kingsley urement (mass/volume)Ordered By: Chris Ochoa on 03-04-2025 Calcium [Mass/Vol] 9.3 mg/dL 7.6-11.0 [facility] Serum or plasma urea nitroge n measurement (mass/volume)Ordered By: Chris Ochoa on 03-04-2025 Urea nitrogen [Mass/Vol] 37 mg/dL High 4-19 [facility] Sodium levelOrdered By: Chris Ochoa on 03-04-2025 Sodium [Moles/Vol] 138 mmol/L 133-145 [facility] Squamous epithelial cells de tection in urine sediment by light microscopyOrdered By: Nicola Madison on 03-04-2025 Epithelial cells.squamous LM Ql (Urine sed) 0 SEEN /hpf 0-5 [facility] TSH DL <= 0.005 mIU/L QnOrde red By: Nicola Madison on 03-04-2025 TSH Qn 3.780 uIU/mL 0.300-4.20 0 [facility] Thyroid Stim Hormone (TSH)on 03-04-2025 TSH 3.780 uIU/mL Normal 0.300-4.20 0 [facility] Comment on above: Performed By: #### L 501.5200, L501.9985, L501.9520 ####[facility] [address] [facility] [id number] Troponin T.cardiac [Mass/vol ume] in Serum or Plasma by High sensitivity methodOrdered By: Chris Ochoa on 03-04-2025 Troponin T.cardiac High sensitivity method [Mass/Vol] 42 ng/L High <22 [facility] Troponin T.cardiac High sensitivity method [Mass/Vol] 45 ng/L High <22 [facility] Troponin T.cardiac High sensitivity method [Mass/Vol] 44 ng/L High <22 [facility] Urinalysis, Completeon 03-04 RBC 5-10 SEEN Normal 0-5 [facility] Comment on above: Order Comment: CLEAN CATCH Performed By: #### L 400.0001 ####[facility] [address] [place], [address] BACTERIA 2+ /hpf Normal None Seen [facility] Comment on above: Order Comment: CLEAN CATCH Performed By: #### L 400.0001 ####[facility] [address] [place], [address] WBC >100 SEEN Normal 0-5 [facility] Comment on above: Order Comment: CLEAN CATCH Performed By: #### L 400.0001 ####[facility] [address] [place], [address] EPI,SQUAMOUS 0 SEEN Normal 0-5 [facility] Comment on above: Order Comment: CLEAN CATCH Performed By: #### L 400.0001 ####[facility] [address] [place], [place], [id number] Mucus Ql (Urine sed) 0 SEEN Normal [facility] Comment on above: Order Comment: CLEAN CATCH Performed By: #### L 400.0001 ####[facility] [address] [place], [place], [id number] Urine clarityOrdered By: Jacob Madison on 03-04-2025 Clarity (U) Cloudy Clear [facility] Urine color determinationOrd ered By: Nicola Madison on 03-04-2025 Color (U) Yellow Yellow [facility] Urine glucose detectionOrder ed By: Nicola Madison on 03-04-2025 Glucose Ql (U) Normal mg/dl Normal [facility] Urine leukocyte esterase det ection by dipstickOrdered By: Nicola Madison on 03-04-2025 Leukocyte esterase Test strip Ql (U) 500 /ul High Negative [facility] Urine pHOrdered By: Nicola stack on 03-04-2025 pH (U) 6.5 [pH] 5.0 - 8.0 [facility] Urine sediment bacteria coun t by microscopy (number/high power field)Ordered By: Nicola Madison on 03-04-2025 Bacteria LM.HPF (Urine sed) [#/Area] 2 /[HPF] None Seen [facility] Urine specific gravity measu rementOrdered By: Nicola Madison on 03-04-2025 Specific gravity (U) [Rel density] 1.010 1.002-1.03 0 [facility] Urine urobilinogen measureme ntOrdered By: Nicola Madison on 03-04-2025 Urobilinogen Ql (U) Normal mg/dl Normal [facility] White blood cell (WBC) count Ordered By: Chris Ochoa on 03-04-2025 WBC (Bld) [#/Vol] 7.6 10*3/uL 4.4-11.0 [facility] White blood cell countOrdere d By: Nicola Madison on 03-04-2025 White blood cell count >100 SEEN /hpf 0-5 [facility] Absolute lymphocyte countOrd ered By: Russ Sera on 11-06-2024 Lymphocytes Auto (Unsp spec) [#/Vol] 0.82 10*3/uL Low 0.83-4.51 [facility] Absolute neutrophil countOrd ered By: Russ Zamora on 11-06-2024 Neutrophils (Bld) [#/Vol] 8.1 10*3/uL High 2.0-7.7 [facility] Anion gap in Serum or Plasma Ordered By: Russ Zamora on 11-06-2024 Anion gap [Moles/Vol] 10 mmol/L 5-15 [facility] Automated lymphocyte count a s percentage of total leukocytesOrdered By: Russ Zamora on 11-06-2024 Lymphocytes/100 WBC Auto (Unsp spec) 8.1 % Low 19-41 [facility] BUN/creatinine ratioOrdered By: Russ Zamora on 11-06-2024 Urea nitrogen/Creatinine [Mass ratio] 19.3 mg/mg 10-20 [facility] Basophil percentageOrdered B y: Russ Zamora on 11-06-2024 Basophils/100 WBC (Bld) 0.3 % 0-1 [facility] Bilirubin, totalOrdered By: Russ Zamora on 11-06-2024 Bilirubin [Mass/Vol] 0.46 mg/dL 0.00-1.30 [facility] CBC W/Diff, Automatedon 10-19 Absolute Lymph 0.82 X10 3/uL Low 0.83-4.51 [facility] Comment on above: Performed By: #### L 500.4050, L504.2610, L100.0100 ####[facility] [address] [place], [address] Absolute Neut 8.1 X10 3/uL High 2.0-7.7 [facility] Comment on above: Performed By: #### L 500.4050, L504.2610, L100.0100 ####[facility] [address] [place], [address] Basophils/100 WBC (Bld) 0.3 % Normal 0-1 [facility] Comment on above: Performed By: #### L 500.4050, L504.2610, L100.0100 ####[facility] [address] [place], [address] Eosinophils/100 WBC (Bld) 1.7 % Normal 0-5 [facility] Comment on above: Performed By: #### L 500.4050, L504.2610, L100.0100 ####[facility] [address] [place], [address] Erythrocyte distribution width (RBC) [Ratio] 16.8 % High 11.6-14.6 [facility] Comment on above: Performed By: #### L 500.4050, L504.2610, L100.0100 ####[facility] [address] [place], [address] Hematocrit (Bld) [Volume fraction] 34.2 % Low 40-54 [facility] Comment on above: Performed By: #### L 500.4050, L504.2610, L100.0100 ####[facility] [address] [place], [address] Hemoglobin (Bld) [Mass/Vol] 10.7 g/dL Low 13.0-16.5 [facility] Comment on above: Performed By: #### L 500.4050, L504.2610, L100.0100 ####[facility] [address] [place], [address] IG% 0.500 Normal 0.0-0.9 [facility] Comment on above: Result Comment: IG% - Immature Granulocytes (promyelocytes, myelocytes andmetamyelocytes) > 1% indicates that a LEFT SHIFT is Present. Performed By: #### L 500.4050, L504.2610, L100.0100 ####[facility] [address] [place], [address] Lymphocytes/100 WBC (Bld) 8.1 % Low 19-41 [facility] Comment on above: Performed By: #### L 500.4050, L504.2610, L100.0100 ####[facility] [address] [place], [address] MCH (RBC) [Entitic mass] 27.4 pg Normal 27.0-32.0 [facility] Comment on above: Performed By: #### L 500.4050, L504.2610, L100.0100 ####[facility] [address] [place], [address] MCHC (RBC) [Mass/Vol] 31.3 g/dL Low 32-36 [facility] Comment on above: Performed By: #### L 500.4050, L504.2610, L100.0100 ####[facility] [address] [place], [address] MCV (RBC) [Entitic vol] 87.5 fL Normal 80-94 [facility] Comment on above: Performed By: #### L 500.4050, L504.2610, L100.0100 ####[facility] [address] [place], [address] Monocytes/100 WBC (Bld) 8.8 % Normal 0-10 [facility] Comment on above: Performed By: #### L 500.4050, L504.2610, L100.0100 ####[facility] [address] [place], [address] Neutrophils/100 WBC (Bld) 80.6 % High 47-70 [facility] Comment on above: Performed By: #### L 500.4050, L504.2610, L100.0100 ####[facility] [address] [place], [address] Nucleated RBC (Bld) [#/Vol] 0 10*3/uL Normal 0-5 [facility] Comment on above: Performed By: #### L 500.4050, L504.2610, L100.0100 ####[facility] [address] [place], [address] Platelet mean volume (Bld) [Entitic vol] 10.4 fL Normal 6.2-12.0 [facility] Comment on above: Performed By: #### L 500.4050, L504.2610, L100.0100 ####[facility] [address] [place], [address] Platelets (Bld) [#/Vol] 212 10*3/uL Normal 150-450 [facility] Comment on above: Performed By: #### L 500.4050, L504.2610, L100.0100 ####[facility] [address] [place], [address] RBC (Bld) [#/Vol] 3.91 10*6/uL Low 4.6-6.2 [facility] Comment on above: Performed By: #### L 500.4050, L504.2610, L100.0100 ####[facility] [address] [place], [address] RDW SD 53.5 fl High 35.1-43.9 [facility] Comment on above: Performed By: #### L 500.4050, L504.2610, L100.0100 ####[facility] [address] [place], [address] WBC (Bld) [#/Vol] 10.1 10*3/uL Normal 4.4-11.0 [facility] Comment on above: Performed By: #### L 500.4050, L504.2610, L100.0100 ####[facility] [address] [place], [address] Carbon dioxide, total [Moles /volume] in Central venous bloodOrdered By: Russ Zamora on 11-06-2024 CO2 [Moles/Vol] 25.2 mmol/L 21.0-32.0 [facility] Chloride assayOrdered By: Flores Zamora on 11-06-2024 Chloride [Moles/Vol] 105 mmol/L 98-108 [facility] Comprehensive Metabolic Prof ilon 11-06-2024 Albumin [Mass/Vol] 3.8 g/dL Normal 3.4-4.8 [facility] Comment on above: Performed By: #### L 500.4050, L504.2610, L100.0100 ####[facility] [address] [place], [address] Albumin/Globulin [Mass ratio] 0.9 {ratio} Normal 0.9-2.4 [facility] Comment on above: Performed By: #### L 500.4050, L504.2610, L100.0100 ####[facility] [address] [place], [address] ALK PHOS 72 U/L Normal 40-129 [facility] Comment on above: Performed By: #### L 500.4050, L504.2610, L100.0100 ####[facility] [address] [place], [address] ALT [Catalytic activity/Vol] 10 U/L Normal <=46 [facility] Comment on above: Performed By: #### L 500.4050, L504.2610, L100.0100 ####[facility] [address] [place], [address] AST [Catalytic activity/Vol] 16 U/L Normal <=37 [facility] Comment on above: Performed By: #### L 500.4050, L504.2610, L100.0100 ####[facility] [address] [place], [address] Bilirubin [Mass/Vol] 0.46 mg/dL Normal 0.00-1.30 [facility] Comment on above: Performed By: #### L 500.4050, L504.2610, L100.0100 ####[facility] [address] [place], [address] BUN/CRE 19.3 RATIO Normal 10-20 [facility] Comment on above: Performed By: #### L 500.4050, L504.2610, L100.0100 ####[facility] [address] [place], [address] Calcium [Mass/Vol] 9.1 mg/dL Normal 7.6-11.0 [facility] Comment on above: Performed By: #### L 500.4050, L504.2610, L100.0100 ####[facility] [address] [place], [address] Chloride [Moles/Vol] 105 mmol/L Normal 98-108 [facility] Comment on above: Performed By: #### L 500.4050, L504.2610, L100.0100 ####[facility] [address] [place], [address] CO2 [Moles/Vol] 25.2 mmol/L Normal 21.0-32.0 [facility] Comment on above: Performed By: #### L 500.4050, L504.2610, L100.0100 ####[facility] [address] [place], [address] Creatinine [Mass/Vol] 1.87 mg/dL High 0.70-1.20 [facility] Comment on above: Performed By: #### L 500.4050, L504.2610, L100.0100 ####[facility] [address] [place], [address] ECRCL 32.00 ml/min Low 50-250 [facility] Comment on above: Performed By: #### L 500.4050, L504.2610, L100.0100 ####[facility] [address] [place], [address] GAP 10 Normal 5-15 [facility] Comment on above: Performed By: #### L 500.4050, L504.2610, L100.0100 ####[facility] [address] [place], [address] GFR/1.73 sq M.predicted among non-blacks MDRD (S/P/Bld) [Vol rate/Area] 36 mL/min/{1.73_m2} Low >60 [facility] Comment on above: Result Comment: mL/m in/1.73m2 CKD-EPI Creatinine Equation (2020) Performed By: #### L 500.4050, L504.2610, L100.0100 ####[facility] [address] [place], [address] Globulin (S) [Mass/Vol] 4.1 g/dL Normal 2.2-4.2 [facility] Comment on above: Performed By: #### L 500.4050, L504.2610, L100.0100 ####[facility] [address] [place], [address] Glucose [Mass/Vol] 132 mg/dL High 70-99 [facility] Comment on above: Performed By: #### L 500.4050, L504.2610, L100.0100 ####[facility] [address] [place], [address] Potassium [Moles/Vol] 4.8 mmol/L Normal 3.3-5.1 [facility] Comment on above: Performed By: #### L 500.4050, L504.2610, L100.0100 ####[facility] [address] [place], [address] Sodium [Moles/Vol] 140 mmol/L Normal 133-145 [facility] Comment on above: Performed By: #### L 500.4050, L504.2610, L100.0100 ####[facility] [address] [place], [address] T PROT 7.9 g/dL Normal 5.9-8.4 [facility] Comment on above: Performed By: #### L 500.4050, L504.2610, L100.0100 ####[facility] [address] [place], [address] Urea nitrogen [Mass/Vol] 36 mg/dL High 4-19 [facility] Comment on above: Performed By: #### L 500.4050, L504.2610, L100.0100 ####[facility] [address] [place], [address] Eosinophil percentageOrdered By: Russ Zamora on 11-06-2024 Eosinophils/100 WBC (Bld) 1.7 % 0-5 [facility] Erythrocyte distribution wid th ratioOrdered By: Russ Zamora on 11-06-2024 Erythrocyte distribution width (RBC) [Ratio] 16.8 % High 11.6-14.6 [facility] Erythrocyte distribution wid th standard deviationOrdered By: Russ Zamora on 11-06-2024 Erythrocyte distribution width (RBC) [Entitic vol] 53.5 fL High 35.1-43.9 [facility] Erythrocyte distribution width (RBC) [Ratio] 53.5 fl High 35.1-43.9 [facility] Estimation of creatinine rowdy aranceOrdered By: Russ Zamora on 11-06-2024 Estimated Creatinine Clearance Calc 32.00 ml/min Low 50-250 [facility] GFR/1.73 sq M.predicted kaylyn g non-blacks MDRD (S/P/Bld) [Vol rate/Area]Ordered By: Russ Zamora on 11-06-2024 Estimated GFR (MDRD) Non-Af Amer 36 Low >60 [facility] Comment on above: mL/min/1.73m2 CKD-EP I Creatinine Equation (2020) Glomerular filtration rate ( GFR) estimation/1.73 sq m using serum, plasma, or whole bOrdered By: Russ Zamora on 11-06-2024 GFR/1.73 sq M.predicted among non-blacks MDRD (S/P/Bld) [Vol rate/Area] 36 mL/min/{1.73_m2} Low >60 [facility] Comment on above: mL/min/1.73m2 CKD-EP I Creatinine Equation (2020) Hematocrit Auto (Bld) [Volum e fraction]Ordered By: Russ Zamora on 11-06-2024 Hematocrit (Bld) [Volume fraction] 34.2 % Low 40-54 [facility] Hemoglobin measurementOrdere d By: Russ Zamora on 11-06-2024 Hemoglobin (Bld) [Mass/Vol] 10.7 g/dL Low 13.0-16.5 [facility] Immature granulocytes/100 WB C Auto (Bld)Ordered By: Russ Zamora on 11-06-2024 Immature granulocytes/100 WBC (Bld) 0.500 % 0.0-0.9 [facility] Comment on above: IG% - Immature Granu locytes (promyelocytes, myelocytes and metamyelocytes) > 1% indicates that a LEFT SHIFT is Present. LDHon 11-06-2024 LDH 135 U/L Normal 87-241 [facility] Comment on above: Order Comment: 1 Performed By: #### L 500.4050, L504.2610, L100.0100 ####[facility] [address] [place], [address] Laboratory - Chemistry and C hemistry - challengeOrdered By: Russ Zamora on 11-06-2024 AST [Catalytic activity/Vol] 16 U/L <38 [facility] Lactate dehydrogenase (LDH) measurementOrdered By: Russ Zamora on 11-06-2024 LDH [Catalytic activity/Vol] 135 U/L 87-241 [facility] Lymphocytes Auto (Unsp spec) [#/Vol]Ordered By: Russ Zamora on 11-06-2024 Lymphocytes (Bld) [#/Vol] 0.82 10*3/uL Low 0.83-4.51 [facility] Lymphocytes/100 WBC Auto (Un sp spec)Ordered By: Russ Zamora on 11-06-2024 Lymphocytes/100 WBC (Bld) 8.1 % Low 19-41 [facility] MCV (mean corpuscular volume ) determinationOrdered By: Russ Zamora on 11-06-2024 MCV (RBC) [Entitic vol] 87.5 fL 80-94 [facility] Mean corpuscular hemoglobin (MCH) determinationOrdered By: Russ Zamora on 11-06-2024 MCH (RBC) [Entitic mass] 27.4 pg 27.0-32.0 [facility] Mean corpuscular hemoglobin concentration (MCHC) determinationOrdered By: Russ Zamora on 11-06-2024 MCHC (RBC) [Mass/Vol] 31.3 g/dL Low 32-36 [facility] Mean platelet volume determi nationOrdered By: Russ Zamora on 11-06-2024 Platelet mean volume (Bld) [Entitic vol] 10.4 fL 6.2-12.0 [facility] Monocyte percentageOrdered B y: Russ Zamora on 11-06-2024 Monocytes/100 WBC (Bld) 8.8 % 0-10 [facility] Neutrophil percentageOrdered By: Russ Zamora on 11-06-2024 Neutrophils/100 WBC (Bld) 80.6 % High 47-70 [facility] Nucleated red blood cell per centageOrdered By: Russ Zamora on 11-06-2024 Nucleated RBC/100 WBC (Bld) [Ratio] 0 % 0-5 [facility] Oncology Visit Reporton - 0 Oncology Visit Report Normal [facility] Platelet countOrdered By: Flores Zamora on 11-06-2024 Platelets (Bld) [#/Vol] 212 10*3/uL 150-450 [facility] Potassium (Unsp spec) [Mass/ Vol]Ordered By: Russ Zamora on 11-06-2024 Potassium [Moles/Vol] 4.8 mmol/L 3.3-5.1 [facility] Potassium measurement (mass/ volume)Ordered By: Russ Zamora on 11-06-2024 Potassium (Unsp spec) [Mass/Vol] 4.8 mmol/L 3.3-5.1 [facility] RBC Auto (Bld) [#/Vol]Ordere d By: Russ Zamora on 11-06-2024 RBC (Bld) [#/Vol] 3.91 10*6/uL Low 4.6-6.2 [facility] Serum creatinine measurement (mass/volume)Ordered By: Russ Zamora on 11-06-2024 Creatinine [Mass/Vol] 1.87 mg/dL High 0.70-1.20 [facility] Serum globulin measurementOr dered By: Russ Zamora on 11-06-2024 Globulin (S) [Mass/Vol] 4.1 g/dL 2.2-4.2 [facility] Serum glucose measurement (m ass/volume)Ordered By: Russ Zamora on 11-06-2024 Glucose [Mass/Vol] 132 mg/dL High 70-99 [facility] Serum or plasma alanine ortiz otransferase (ALT) measurementOrdered By: Russ Zamora on 11-06-2024 ALT [Catalytic activity/Vol] 10 U/L <47 [facility] Serum or plasma albumin kingsley urement (mass/volume)Ordered By: Russ Zamora on 11-06-2024 Albumin [Mass/Vol] 3.8 g/dL 3.4-4.8 [facility] Serum or plasma albumin/glob ulin mass ratioOrdered By: Russ Zamora on 11-06-2024 Albumin/Globulin [Mass ratio] 0.9 {ratio} 0.9-2.4 [facility] Serum or plasma alkaline roosevelt sphatase measurementOrdered By: Russ Zamora on 11-06-2024 ALP [Catalytic activity/Vol] 72 U/L 40-129 [facility] Serum or plasma calcium kingsley urement (mass/volume)Ordered By: Russ Zamora on 11-06-2024 Calcium [Mass/Vol] 9.1 mg/dL 7.6-11.0 [facility] Serum or plasma urea nitroge n measurement (mass/volume)Ordered By: Russ Zamora on 11-06-2024 Urea nitrogen [Mass/Vol] 36 mg/dL High 4-19 [facility] Sodium levelOrdered By: Esau Zamora on 11-06-2024 Sodium [Moles/Vol] 140 mmol/L 133-145 [facility] Total proteinOrdered By: Frantz Zamora on 11-06-2024 Protein [Mass/Vol] 7.9 g/dL 5.9-8.4 [facility] White blood cell (WBC) count Ordered By: Russ Zamora on 11-06-2024 WBC (Bld) [#/Vol] 10.1 10*3/uL 4.4-11.0 [facility] CREATININE FINGERSTICKon Creatinine [Mass/Vol] 1.5 mg/dL High 0.70-1.30 [facility] Comment on above: Performed By: #### L 9100.0200 ####[facility] [address] [place], [place], [id number] GFR/1.73 sq M.predicted among non-blacks MDRD (S/P/Bld) [Vol rate/Area] 48.0000 mL/min/{1.73_m2} Low >60 [facility] Comment on above: Performed By: #### L 9100.0200 ####[facility] [address] [place], [place], [id number] CT Chest AND Abd W/ Contrast on 10-30-2024 CT Chest AND Abd W/ Contrast Normal [facility] Creatinine measurement at be dsideOrdered By: Russ Zamora on 10-30-2024 Creatinine [Mass/Vol] 1.5 mg/dL High 0.70-1.30 [facility] EGFROrdered By: Russ Zamora on 10-30-2024 GFR/1.73 sq M.predicted among non-blacks MDRD (S/P/Bld) [Vol rate/Area] 48.0000 mL/min/{1.73_m2} Low >60 [facility] Pulmonary Visit Reporton Pulmonary Visit Report Normal [facility] Hemoglobin A1con 10-21-2024 HbA1c (Bld) [Mass fraction] 6.6 % Normal <=5.6 [facility] Comment on above: Performed By: #### L 501.9985 ####[facility] [address] [place], [address] Hemoglobin A1c percentageOrd ered By: Tonio Fajardo on 10-20-2024 HbA1c (Bld) [Mass fraction] 6.6 % >5.7 [facility] 6 Minute Walk Teston 28-2 025 6 Minute Walk Test Normal [facility] Absolute neutrophil countOrd ered By: Leslie Arriaga on 09-25-2024 Neutrophils (Bld) [#/Vol] 6.7 10*3/uL 2.0-7.7 [facility] BNP (brain natriuretic pepti de measurement)Ordered By: Leslie Arriaga on 09-25-2024 Natriuretic peptide B (Bld) [Mass/Vol] 183.7 pg/mL High 0-100 [facility] BNP,B-Type NATRIURETIC PEPTI Adrienne 09-25-2024 Natriuretic peptide B (Bld) [Mass/Vol] 183.7 pg/mL High 0-100 [facility] Comment on above: Performed By: #### L 503.6620, L500.2500, L100.0100 ####[facility] [address] [place], [address] Basic Metabolic Profile (BMP )on 09-25-2024 BUN/CRE 15.4 RATIO Normal 10-20 [facility] Comment on above: Performed By: #### L 503.6620, L500.2500, L100.0100 ####[facility] [address] [place], [address] CA,Total 9.1 mg/dL Normal 8.5-10.1 [facility] Comment on above: Performed By: #### L 503.6620, L500.2500, L100.0100 ####[facility] [address] [place], [address] Chloride [Moles/Vol] 105 mmol/L Normal 98-107 [facility] Comment on above: Performed By: #### L 503.6620, L500.2500, L100.0100 ####[facility] [address] [place], [address] CO2 [Moles/Vol] 28.0 mmol/L Normal 21.0-32.0 [facility] Comment on above: Performed By: #### L 503.6620, L500.2500, L100.0100 ####[facility] [address] [place], [address] Creatinine [Mass/Vol] 2.21 mg/dL High 0.70-1.30 [facility] Comment on above: Result Comment: The validity of the calculated GFR GFRAA in patients over70 years has not been determined. Clinical correlation isessential. Performed By: #### L 503.6620, L500.2500, L100.0100 ####[facility] [address] [place], [address] EST GFR - AA 37 mL/min Low >60 [facility] Comment on above: Result Comment: Afri can Martiniquais GFR Calc Performed By: #### L 503.6620, L500.2500, L100.0100 ####[facility] [address] [place], [address] GAP 5 Normal 5-15 [facility] Comment on above: Performed By: #### L 503.6620, L500.2500, L100.0100 ####[facility] [address] [place], [address] GFR/1.73 sq M.predicted among non-blacks MDRD (S/P/Bld) [Vol rate/Area] 31 mL/min/{1.73_m2} Low >60 [facility] Comment on above: Result Comment: Non- GFR Calc Performed By: #### L 503.6620, L500.2500, L100.0100 ####[facility] [address] [place], [address] Glucose [Mass/Vol] 127 mg/dL High 74-106 [facility] Comment on above: Result Comment: Fast ing Glucose result greater than or equal to 126 mg/dLsuggests DIABETES MELLITUS per A.D.A. criteria. Performed By: #### L 503.6620, L500.2500, L100.0100 ####[facility] [address] [place], [address] Potassium [Moles/Vol] 4.3 mmol/L Normal 3.5-5.1 [facility] Comment on above: Performed By: #### L 503.6620, L500.2500, L100.0100 ####[facility] [address] [place], [address] Sodium [Moles/Vol] 138 mmol/L Normal 136-145 [facility] Comment on above: Performed By: #### L 503.6620, L500.2500, L100.0100 ####[facility] [address] [place], [address] Urea nitrogen [Mass/Vol] 34 mg/dL High 7-18 [facility] Comment on above: Performed By: #### L 503.6620, L500.2500, L100.0100 ####[facility] [address] [place], [address] Basophil percentageOrdered B y: Leslie Arriaga on 09-25-2024 Basophils/100 WBC (Bld) 0.6 % 0-1 [facility] Blood urea nitrogen (BUN)/cr eatinine ratioOrdered By: Leslie Arriaga on 09-25-2024 Urea nitrogen/Creatinine [Mass ratio] 15.4 mg/mg 10-20 [facility] CBC W/Diff, Automatedon Absolute Lymph 0.91 X10 3/uL Normal 0.83-4.51 [facility] Comment on above: Performed By: #### L 503.6620, L500.2500, L100.0100 ####[facility] [address] [place], [address] Absolute Neut 6.7 X10 3/uL Normal 2.0-7.7 [facility] Comment on above: Performed By: #### L 503.6620, L500.2500, L100.0100 ####[facility] [address] [place], [address] Basophils/100 WBC (Bld) 0.6 % Normal 0-1 [facility] Comment on above: Performed By: #### L 503.6620, L500.2500, L100.0100 ####[facility] [address] [place], [address] Eosinophils/100 WBC (Bld) 1.1 % Normal 0-5 [facility] Comment on above: Performed By: #### L 503.6620, L500.2500, L100.0100 ####[facility] [address] [place], [address] Erythrocyte distribution width (RBC) [Ratio] 16.2 % High 11.6-14.6 [facility] Comment on above: Performed By: #### L 503.6620, L500.2500, L100.0100 ####[facility] [address] [place], [address] Hematocrit (Bld) [Volume fraction] 36.0 % Low 40-54 [facility] Comment on above: Performed By: #### L 503.6620, L500.2500, L100.0100 ####[facility] [address] [place], [address] Hemoglobin (Bld) [Mass/Vol] 11.1 g/dL Low 13.0-16.5 [facility] Comment on above: Performed By: #### L 503.6620, L500.2500, L100.0100 ####[facility] [address] [place], [address] IG% 0.700 Normal 0.0-0.9 [facility] Comment on above: Result Comment: IG% - Immature Granulocytes (promyelocytes, myelocytes andmetamyelocytes) > 1% indicates that a LEFT SHIFT is Present. Performed By: #### L 503.6620, L500.2500, L100.0100 ####[facility] [address] [place], [address] Lymphocytes/100 WBC (Bld) 10.4 % Low 19-41 [facility] Comment on above: Performed By: #### L 503.6620, L500.2500, L100.0100 ####[facility] [address], [address] MCH (RBC) [Entitic mass] 27.7 pg Normal 27.0-32.0 [facility] Comment on above: Performed By: #### L 503.6620, L500.2500, L100.0100 ####[facility] [address] [place], [address] MCHC (RBC) [Mass/Vol] 30.8 g/dL Low 32-36 [facility] Comment on above: Performed By: #### L 503.6620, L500.2500, L100.0100 ####[facility] [address] [place], [address] MCV (RBC) [Entitic vol] 89.8 fL Normal 80-94 [facility] Comment on above: Performed By: #### L 503.6620, L500.2500, L100.0100 ####[facility] [address] [place], [address] Monocytes/100 WBC (Bld) 10.3 % High 0-10 [facility] Comment on above: Performed By: #### L 503.6620, L500.2500, L100.0100 ####[facility] [address] [place], [address] Neutrophils/100 WBC (Bld) 76.9 % High 47-70 [facility] Comment on above: Performed By: #### L 503.6620, L500.2500, L100.0100 ####[facility] [address] [place], [address] Nucleated RBC (Bld) [#/Vol] 0 10*3/uL Normal 0-5 [facility] Comment on above: Performed By: #### L 503.6620, L500.2500, L100.0100 ####[facility] [address] [place], [address] Platelet mean volume (Bld) [Entitic vol] 10.5 fL Normal 6.2-12.0 [facility] Comment on above: Performed By: #### L 503.6620, L500.2500, L100.0100 ####[facility] [address] [place], [address] Platelets (Bld) [#/Vol] 256 10*3/uL Normal 150-450 [facility] Comment on above: Performed By: #### L 503.6620, L500.2500, L100.0100 ####[facility] [address] [place], [address] RBC (Bld) [#/Vol] 4.01 10*6/uL Low 4.6-6.2 [facility] Comment on above: Performed By: #### L 503.6620, L500.2500, L100.0100 ####[facility] [address] [place], [address] RDW SD 52.7 fl High 35.1-43.9 [facility] Comment on above: Performed By: #### L 503.6620, L500.2500, L100.0100 ####[facility] [address] [place], [place], [address] WBC (Bld) [#/Vol] 8.7 10*3/uL Normal 4.4-11.0 [facility] Comment on above: Performed By: #### L 503.6687, L500.2500, L100.0100 ####[facility] [address] [facility] [place], [place], [address] Carbon dioxide measurementOr dered By: Leslie Arriaga on 09-25-2024 CO2 [Moles/Vol] 28.0 mmol/L 21.0-32.0 [facility] Cardiology Visit Reporton Cardiology Visit Report Normal [facility] Chest PA and Lateralon 09-25 Chest PA and Lateral Normal [facility] Chloride measurementOrdered By: Leslie Arriaga on 09-25-2024 Chloride [Moles/Vol] 105 mmol/L 98-107 [facility] Eosinophil percentageOrdered By: Leslie Arriaga on 09-25-2024 Eosinophils/100 WBC (Bld) 1.1 % 0-5 [facility] Erythrocyte distribution wid th ratioOrdered By: Lselie Arriaga on 09-25-2024 Erythrocyte distribution width (RBC) [Ratio] 16.2 % High 11.6-14.6 [facility] Erythrocyte distribution wid th standard deviationOrdered By: Leslie Arriaga on 09-25-2024 Erythrocyte distribution width (RBC) [Entitic vol] 52.7 fL High 35.1-43.9 [facility] Estimated glomerular filtrat ion rate (GFR) AmericanOrdered By: Leslie Arriaga on 09-25-2024 Estimated GFR (MDRD) Amer 37 mL/min Low >60 [facility] Comment on above: GFR Calc Glomerular filtration rate ( GFR) estimationOrdered By: Leslie Arriaga on 09-25-2024 Estimated GFR (MDRD) Non-Af Amer 31 mL/min Low >60 [facility] Comment on above: Non- GFR Calc Glucose measurementOrdered B y: Leslie Arriaga on 09-25-2024 Glucose [Mass/Vol] 127 mg/dL High 74-106 [facility] Comment on above: Fasting Glucose resu lt greater than or equal to 126 mg/dL suggests DIABETES MELLITUS per A.D.A. criteria. Hematocrit Auto (Bld) [Volum e fraction]Ordered By: Leslie Arriaga on 09-25-2024 Hematocrit (Bld) [Volume fraction] 36.0 % Low 40-54 [facility] Hemoglobin measurementOrdere d By: Leslie Arriaga on 09-25-2024 Hemoglobin (Bld) [Mass/Vol] 11.1 g/dL Low 13.0-16.5 [facility] Immature granulocytes/100 WB C Auto (Bld)Ordered By: Leslie Arriaga on 09-25-2024 Immature granulocytes/100 WBC (Bld) 0.700 % 0.0-0.9 [facility] Comment on above: IG% - Immature Granu locytes (promyelocytes, myelocytes and metamyelocytes) > 1% indicates that a LEFT SHIFT is Present. Lymphocytes Auto (Unsp spec) [#/Vol]Ordered By: Leslie Arriaga on 09-25-2024 Lymphocytes (Bld) [#/Vol] 0.91 10*3/uL 0.83-4.51 [facility] Lymphocytes/100 WBC Auto (Un sp spec)Ordered By: Leslie Arriaga on 09-25-2024 Lymphocytes/100 WBC (Bld) 10.4 % Low 19-41 [facility] MCV (mean corpuscular volume ) determinationOrdered By: Leslie Arriaga on 09-25-2024 MCV (RBC) [Entitic vol] 89.8 fL 80-94 [facility] Mean corpuscular hemoglobin (MCH) determinationOrdered By: Leslie Arriaga on 09-25-2024 MCH (RBC) [Entitic mass] 27.7 pg 27.0-32.0 [facility] Mean corpuscular hemoglobin concentration (MCHC) determinationOrdered By: Leslie Arriaga on 09-25-2024 MCHC (RBC) [Mass/Vol] 30.8 g/dL Low 32-36 [facility] Mean platelet volume determi nationOrdered By: Leslie Arriaga on 09-25-2024 Platelet mean volume (Bld) [Entitic vol] 10.5 fL 6.2-12.0 [facility] Monocyte percentageOrdered B y: Leslie Arriaga on 09-25-2024 Monocytes/100 WBC (Bld) 10.3 % High 0-10 [facility] Neutrophil percentageOrdered By: Leslie Arriaga on 09-25-2024 Neutrophils/100 WBC (Bld) 76.9 % High 47-70 [facility] Nucleated red blood cell per centageOrdered By: Leslie Arriaga on 09-25-2024 Nucleated RBC/100 WBC (Bld) [Ratio] 0 % 0-5 [facility] Platelet countOrdered By: Linsey Arriaga on 09-25-2024 Platelets (Bld) [#/Vol] 256 10*3/uL 150-450 [facility] Potassium measurementOrdered By: Leslie Arriaga on 09-25-2024 Potassium [Moles/Vol] 4.3 mmol/L 3.5-5.1 [facility] RBC Auto (Bld) [#/Vol]Ordere d By: Leslie Arriaga on 09-25-2024 RBC (Bld) [#/Vol] 4.01 10*6/uL Low 4.6-6.2 [facility] Serum anion gap measurementO rdered By: Leslie Arriaga on 09-25-2024 Anion gap [Moles/Vol] 5 mmol/L 5-15 [facility] Serum or plasma calcium kingsley urement (mass/volume)Ordered By: Leslie Arriaga on 09-25-2024 Calcium [Mass/Vol] 9.1 mg/dL 8.5-10.1 [facility] Serum or plasma creatinine m easurement (mass/volume)Ordered By: Leslie Arriaga on 09-25-2024 Creatinine [Mass/Vol] 2.21 mg/dL High 0.70-1.30 [facility] Comment on above: The validity of the calculated GFR & GFRAA in patients over 70 years has not been determined. Clinical correlation is essential. Serum or plasma urea nitroge n measurement (mass/volume)Ordered By: Leslie Arriaga on 09-25-2024 Urea nitrogen [Mass/Vol] 34 mg/dL High 7-18 [facility] Sodium levelOrdered By: Brian Arriaga on 09-25-2024 Sodium [Moles/Vol] 138 mmol/L 136-145 [facility] White blood cell (WBC) count Ordered By: Leslie Arriaga on 09-25-2024 WBC (Bld) [#/Vol] 8.7 10*3/uL 4.4-11.0 [facility] Culture, Fungus 8482on 08-04 CUF Normal [facility] Comment on above: Performed By: #### M 100.2000, M600.2000, M100.4001, M100.3000 ####[facility] [address] [place], [address] Culture, Anaerobic Any Sourc talat 07-09-2024 CUAN Prevotella and Porphyromonas species are generally SUSCEPTIBLE to Cefoxitin, Chloramphenicol, and Metronidazole and are usually RESISTANT to Penicillin. Prevotella oralis Beta Lactamase-Reportable Positive [facility] Comment on above: Performed By: #### M 100.2000, M600.2000, M100.4001, M100.3000 ####[facility] [address], [address] Wound Cultureon 07-05-2024 WC Normal [facility] Comment on above: Performed By: #### M 100.2000, M600.2000, M100.4001, M100.3000 ####[facility] [address] [place], [address] Gram Stainon 07-04-2024 GS Positive [facility] Comment on above: Performed By: #### M 100.2000, M600.2000, M100.4001, M100.3000 ####[facility] [address] [place], [address] Bacteria identified Anaer cx Nom (Unsp spec)Ordered By: Joaquim Suárez on 07-03-2024 Anaerobic Culture Prevotella oralis Abnormal [facility] Fungus identified Cx Nom (Un sp spec)Ordered By: Joaquim Suárez on 07-03-2024 Fungal Culture Ann-Marie parapsilosis Abnormal [facility] Gram stainOrdered By: Bladimir Suárez on 07-03-2024 Microscopic observation Gram stain Nom (Unsp spec) [facility] Routine wound cultureOrdered By: Joaquim Suárez on 07-03-2024 Wound Culture Staphylococcus pseudintermediu Abnormal [facility] Lower Ext Art Exam w/o Exerc soco 06-17-2024 Lower Ext Art Exam w/o Exercis Normal [facility] Venous Duplex US - Hi Extre mon 06-17-2024 Venous Duplex US - Hi Extrem Normal [facility] Estimated glomerular filtrat ion rate (GFR) AmericanOrdered By: Russ Zamora on 05-05-2024 Estimated GFR (MDRD) Amer 38 mL/min Low >60 [facility] Comment on above: GFR Calc Miscellaneous procedureOrder ed By: Russ Zamora on 01-28-2024 Miscellaneous Test See comment [facility] Comment on above: Sent directly to [facility] per ordering physician. Bacteria identified Cx Nom ( Wound)Ordered By: Joaquim Suárez on 12-24-2023 Wound Culture Staphylococcus pseudintermediu [facility] Wound Culture Enterococcus faecalis [facility] Wound Culture Streptococcus pyogenes [facility] Gram stain for investigation of transfusion reactionOrdered By: Joaquim Suárez on 12-24-2023 Microscopic observation Gram stain Nom (Unsp spec) [facility] Absolute lymphocyte countOrd ered By: Rsus Zamora on 11-06-2023 Lymphocytes Auto (Unsp spec) [#/Vol] 0.95 10*3/uL 0.83-4.51 [facility] Addendum DocumentOrdered By: Russ Zamora on 11-06-2023 Serum Immunofixation Comments Comment . [facility] Comment on above: Protein electrophore sis scan will follow via computer,mail, or sock drier delivery. Albumin Elph [Mass/Vol]Order ed By: Russ Zamora on 11-06-2023 Albumin [Mass/Vol] 3.2 g/dL 2.9-4.4 [facility] Alpha 1 globulin Elph [Mass/ Vol]Ordered By: Russ Zamora on 11-06-2023 Wemnk-3-Qvmjeitqg (PILY) 0.4 g/dL 0.0-0.4 [facility] Hecxb-0-Bymyhntzk (PILY) 1.3 g/dL High 0.4-1.0 [facility] Automated lymphocyte count a s percentage of total leukocytesOrdered By: Russ Zamora on 11-06-2023 Lymphocytes/100 WBC Auto (Unsp spec) 10.5 % 19-41 [facility] Basophil percentageOrdered B y: Russ Zamora on 11-06-2023 Basophils/100 WBC (Bld) 0.6 % 0-1 [facility] Bilirubin [Mass/Vol] 0.30 mg/dL 0.20-1.00 [facility] Comment on above: For patients on eltr ombopag therapy, use of Dimension [place] TBIL is not recommended. Chloride [Moles/Vol] 105 mmol/L 98-107 [facility] Eosinophils/100 WBC (Bld) 2.1 % 0-5 [facility] Glucose [Mass/Vol] 106 mg/dL 74-106 [facility] Comment on above: Fasting Glucose resu lt from 100 to 125 mg/dL suggests IMPAIRED HOMEOSTASIS per A.D.A. criteria. Hemoglobin (Bld) [Mass/Vol] 11.5 g/dL 13.0-16.5 [facility] LDH [Catalytic activity/Vol] 170 U/L 87-241 [facility] Monocytes/100 WBC (Bld) 10.7 % 0-10 [facility] Neutrophils (Bld) [#/Vol] 6.8 10*3/uL 2.0-7.7 [facility] Neutrophils/100 WBC (Bld) 75.2 % 47-70 [facility] Potassium [Moles/Vol] 4.3 mmol/L 3.5-5.1 [facility] Protein [Mass/Vol] 8.2 g/dL 6.4-8.2 [facility] Sodium [Moles/Vol] 135 mmol/L 136-145 [facility] WBC (Bld) [#/Vol] 9.0 10*3/uL 4.4-11.0 [facility] Beta globulin Elph [Mass/Vol ]Ordered By: Russ Zamora on 11-06-2023 Beta-Globulins (PILY) 1.0 g/dL 0.7-1.3 [facility] C-reactive protein measureme nt by high sensitivity methodOrdered By: Russ Zamora on 11-06-2023 C-Reactive Protein Extended Range 22.10 mg/L High 0.0-3.0 [facility] Comment on above: C-Reactive Protein ( CRP) provides useful information for thediagnosis, therapy and monitoring of inflammatory processesand associated diseases. For the evaluation of Relative Riskfor Cardiovascular Disease, a High Sensitivity CRP (HSCRP)should be ordered. C-reactive protein measurement by high sensitivity method 22.10 mg/L High 0.0-3.0 [facility] Comment on above: C-Reactive Protein ( CRP) provides useful information for thediagnosis, therapy and monitoring of inflammatory processesand associated diseases. For the evaluation of Relative Riskfor Cardiovascular Disease, a High Sensitivity CRP (HSCRP)should be ordered. Determination of erythrocyte mean corpuscular volume (MCV)Ordered By: Russ Zamora on 11-06-2023 MCV (RBC) [Entitic vol] 88.0 fL 80-94 [facility] Erythrocyte distribution wid th ratioOrdered By: Russ Zamora on 11-06-2023 Erythrocyte distribution width (RBC) [Ratio] 15.5 % 11.6-14.6 [facility] Erythrocyte distribution wid th standard deviationOrdered By: Russ Zamora on 11-06-2023 Erythrocyte distribution width (RBC) [Entitic vol] 49.5 fL 35.1-43.9 [facility] Erythrocyte sedimentation ra teOrdered By: Russ Zamora on 11-06-2023 ESR (Bld) [Velocity] 21 mm/h High 0-20 [facility] Gamma globulin Elph [Mass/Vo l]Ordered By: Russ Zamora on 11-06-2023 Gamma Globulins (PILY) 1.8 g/dL 0.4-1.8 [facility] Hematocrit Auto (Bld) [Volum e fraction]Ordered By: uRss Zamora on 11-06-2023 Hematocrit (Bld) [Volume fraction] 36.8 % 40-54 [facility] Hemoglobin (Reticulocytes) [ Entitic mass]Ordered By: Russ Zamora on 11-06-2023 Reticulocyte Hemoglobin Equivalent 31.4 pg 30-35 [facility] [facility] in reticulocytes (mass per reticulocyte)Ordered By: Russ Zamora on 11-06-2023 Hemoglobin (Reticulocytes) [Entitic mass] 31.4 pg 30-35 [facility] IgA [Mass/Vol]Ordered By: Flores Zamora on 11-06-2023 Immunoglobulin A 311 mg/dL 61-437 [facility] IgG [Mass/Vol]Ordered By: Flores Zamora on 11-06-2023 Immunoglobulin G 1529 mg/dL 603-1613 [facility] Immature granulocytes/100 WB C Auto (Bld)Ordered By: Russ Zamora on 11-06-2023 Immature granulocytes/100 WBC (Bld) 0.900 % 0.0-0.9 [facility] Comment on above: IG% - Immature Granu locytes (promyelocytes, myelocytes and metamyelocytes) > 1% indicates that a LEFT SHIFT is Present. Immature reticulocyte fracti onOrdered By: Russ Zamora on 11-06-2023 Immature Reticulocyte Fraction 22.10 % High 3.00-15.90 [facility] Immunoglobulin M measurement Ordered By: Russ Zamora on 11-06-2023 Immunoglobulin M 157 mg/dL High 15-143 [facility] Immunoglobulin light chains. kappa [Mass/Vol]Ordered By: Russ Zamora on 11-06-2023 Free [place] Light Chains, Quant 100.3 mg/L High 3.3-19.4 [facility] Immunoglobulin light chains. kappa/Immunoglobulin light chains.lambda (S) [Mass ratio]Ordered By: Russ Zamora on 11-06-2023 Free [place]/Lambda Light Chain Ratio 1.63 0.26-1.65 [facility] Comment on above: Performed at: [address] [id number] Director: Seb Bertrand PhD, Phone: [phone] Interpretation IEP [Interp]O rdered By: Russ Zamora on 11-06-2023 Immunofixation Screen Comment . [facility] Comment on above: No monoclonality det ected. Interpretation of serum or p lasma protein pattern by immunofixation (narrative resultOrdered By: Russ Zamora on 11-06-2023 Protein Fractions Immunofixation Jose Luis [Interp] Not Observed g/dL Not Observed [facility] Laboratory - Chemistry and C hemistry - challengeOrdered By: Russ Zamora on 11-06-2023 Albumin/Globulin [Mass ratio] 0.6 {ratio} 0.9-2.4 [facility] ALP [Catalytic activity/Vol] 62 U/L 45-117 [facility] ALT [Catalytic activity/Vol] 17 U/L 16-61 [facility] CO2 [Moles/Vol] 24.0 mmol/L 21.0-32.0 [facility] Urea nitrogen/Creatinine [Mass ratio] 21.9 mg/mg 10-20 [facility] Laboratory - Hematology and Cell countsOrdered By: Russ Zamora on 11-06-2023 MCH (RBC) [Entitic mass] 27.5 pg 27.0-32.0 [facility] MCHC (RBC) [Mass/Vol] 31.3 g/dL 32-36 [facility] Nucleated RBC/100 WBC (Bld) [Ratio] 0 % 0-5 [facility] Platelet mean volume (Bld) [Entitic vol] 9.1 fL 6.2-12.0 [facility] Platelets (Bld) [#/Vol] 270 10*3/uL 150-450 [facility] Lambda free light chain kingsley urementOrdered By: Russ Zamora on 11-06-2023 Free Lambda Light Chains, Quant 61.5 mg/L High 5.7-26.3 [facility] No Panel InformationOrdered By: Russ Zamora on 11-06-2023 Addendum Document Comment . [facility] Comment on above: Protein electrophore sis scan will follow via computer,mail, or sock drier delivery. Estimated Creatinine Clearance Calc 31.12 ml/min [facility] Estimated GFR (MDRD) Amer 43 mL/min >60 [facility] Comment on above: GFR Calc Estimated GFR (MDRD) Non-Af Amer 35 mL/min >60 [facility] Comment on above: Non- GFR Calc Protein Fractions Immunofixa tion Jose Luis [Interp]Ordered By: Russ Zamora on 11-06-2023 M-Arash (PILY) Not Observed g/dL Not Observed [facility] RBC Auto (Bld) [#/Vol]Ordere d By: Russ Zamora on 11-06-2023 RBC (Bld) [#/Vol] 4.18 10*6/uL 4.6-6.2 [facility] Reticulocytes Auto (Bld) [#/ Vol]Ordered By: Russ Zamora on 11-06-2023 Reticulocyte Count 2.12 % High 0.5-1.5 [facility] Reticulocytes/100 RBC (Bld) 2.12 % High 0.5-1.5 [facility] Serum albumin/globulin ratio Ordered By: Russ Zamora on 11-06-2023 Albumin/Globulin (PILY) 0.8 0.7-1.7 [facility] Serum [id number] measu rement by electrophoresisOrdered By: Russ Zamora on 11-06-2023 Alpha 1 globulin Elph [Mass/Vol] 0.4 g/dL 0.0-0.4 [facility] Alpha 1 globulin Elph [Mass/Vol] 1.3 g/dL High 0.4-1.0 [facility] Serum globulin measurement ( mass/volume)Ordered By: Russ Zamora on 11-06-2023 Globulin (S) [Mass/Vol] 4.4 g/dL 2.2-3.9 [facility] Serum immunoglobulin kappa l ight chains/immunoglobulin lambda light chains mass ratioOrdered By: Russ Zamora on 11-06-2023 Immunoglobulin light chains.kappa/Immunoglobu mellissa light chains.lambda (S) [Mass ratio] 1.63 0.26-1.65 [facility] Comment on above: Performed at: [address] [id number] Director: Seb Bertrand PhD, Phone: [phone] Serum or plasma IgA measurem ent (mass/volume)Ordered By: Russ Zamora on 11-06-2023 IgA [Mass/Vol] 311 mg/dL 61-437 [facility] Serum or plasma IgG measurem ent (mass/volume)Ordered By: Russ Zamora on 11-06-2023 IgG [Mass/Vol] 1529 mg/dL 603-1613 [facility] Serum or plasma beta globuli n measurement by electrophoresis (mass/volume)Ordered By: Russ Zamora on 11-06-2023 Beta globulin Elph [Mass/Vol] 1.0 g/dL 0.7-1.3 [facility] Serum or plasma calcium kingsley urement (mass/volume)Ordered By: Russ Zamora on 11-06-2023 Calcium [Mass/Vol] 9.0 mg/dL 8.5-10.1 [facility] Serum or plasma creatinine m easurement (mass/volume)Ordered By: Russ Zamora on 11-06-2023 Creatinine [Mass/Vol] 1.96 mg/dL 0.70-1.30 [facility] Comment on above: The validity of the calculated GFR & GFRAA in patients over 70 years has not been determined. Clinical correlation is essential. Serum or plasma gamma globul in measurement by electrophoresis (mass/volume)Ordered By: Russ Zamora on 11-06-2023 Gamma globulin Elph [Mass/Vol] 1.8 g/dL 0.4-1.8 [facility] Serum or plasma immunoelectr ophoresis interpretation (nominal result)Ordered By: Russ Zamora on 11-06-2023 Interpretation IEP [Interp] Comment . [facility] Comment on above: No monoclonality det ected. Serum or plasma immunoglobul in kappa light chains measurement (mass/volume)Ordered By: Russ Zamora on 11-06-2023 Immunoglobulin light chains.kappa [Mass/Vol] 100.3 mg/L High 3.3-19.4 [facility] Serum or plasma urea nitroge n measurement (mass/volume)Ordered By: Russ Zamora on 11-06-2023 Urea nitrogen [Mass/Vol] 43 mg/dL 7-18 [facility] Serum or plasma uric acid me asurement (mass/volume)Ordered By: Russ Zamora on 11-06-2023 Urate [Mass/Vol] 6.6 mg/dL 3.5-7.2 [facility] Comment on above: The drugs N-Acetylcy steine and Metamizole may falsely depress this assay. Thin prep Papanicolaou smear with manual screeningOrdered By: Russ Zamora on 11-06-2023 Thin prep Papanicolaou smear with manual screening 3.2 g/dL 3.2-5.0 [facility] Thin prep Papanicolaou smear with manual screening 15 U/L 15-37 [facility] Thin prep Papanicolaou smear with manual screening 6 5-15 [facility] Thin prep Papanicolaou smear with manual screening 0.8 0.7-1.7 [facility] Total protein bloodOrdered B y: Russ Zamora on 11-06-2023 Protein [Mass/Vol] 7.6 g/dL 6.0-8.5 [facility] Basophil percentageOrdered B y: Russ Zamora on 10-12-2023 Creatinine [Mass/Vol] 1.5 mg/dL 0.70-1.30 [facility] Laboratory - Chemistry and C hemistry - challengeOrdered By: Russ Zamora on 10-12-2023 GFR/1.73 sq M.predicted among non-blacks MDRD (S/P/Bld) [Vol rate/Area] 49.0000 mL/min/{1.73_m2} >60 [facility] Absolute lymphocyte countOrd ered By: Leslie Arriaga on 07-26-2023 Lymphocytes Auto (Unsp spec) [#/Vol] 1.22 10*3/uL 0.83-4.51 [facility] Assessment of wrist artery p atency prior to arterial punctureOrdered By: oLrie Mart on 07-26-2023 Arterial patency Wrist artery --pre arterial puncture Positive [facility] Base excessOrdered By: Obed Mart on 07-26-2023 Base excess Calc (BldV) [Moles/Vol] -1 mmol/L -2-2 [facility] Basophil percentageOrdered B y: Leslie Arriaga on 07-26-2023 Basophils/100 WBC (Bld) 0.7 % 0-1 [facility] Chloride [Moles/Vol] 105 mmol/L 98-107 [facility] Eosinophils/100 WBC (Bld) 1.7 % 0-5 [facility] Glucose [Mass/Vol] 99 mg/dL 74-106 [facility] Neutrophils (Bld) [#/Vol] 9.0 10*3/uL 2.0-7.7 [facility] Neutrophils/100 WBC (Bld) 76.3 % 47-70 [facility] Potassium [Moles/Vol] 4.8 mmol/L 3.5-5.1 [facility] Sodium [Moles/Vol] 135 mmol/L 136-145 [facility] WBC (Bld) [#/Vol] 11.7 10*3/uL 4.4-11.0 [facility] Basophil percentageOrdered B y: Lorie Mart on 07-26-2023 Basophil percentage 24.8 mmol/L 22-26 [facility] Basophils/100 WBC (Bld) 95 % 95-99 [facility] Blood erythrocytes count (nu mber/volume)Ordered By: Leslie Arriaga on 07-26-2023 RBC (Bld) [#/Vol] 4.50 10*6/uL 4.6-6.2 [facility] Blood hemoglobin measurement (mass/volume)Ordered By: Leslie Arriaga on 07-26-2023 Hemoglobin (Bld) [Mass/Vol] 12.5 g/dL 13.0-16.5 [facility] Blood lymphocytes/100 leukoc ytesOrdered By: Leslie Arriaga on 07-26-2023 Lymphocytes/100 WBC (Bld) 10.4 % 19-41 [facility] Blood monocytes/100 leukocyt esOrdered By: Leslie Arriaga on 07-26-2023 Monocytes/100 WBC (Bld) 10.2 % 0-10 [facility] Blood platelet mean volumeOr dered By: Leslie Arriaga on 07-26-2023 Platelet mean volume (Bld) [Entitic vol] 10.6 fL 6.2-12.0 [facility] CO2 (BldA) [Partial pressure ]Ordered By: Lorie Mart on 07-26-2023 CO2 (Bld) [Partial pressure] 42.6 mm[Hg] 35-45 [facility] Determination of erythrocyte mean corpuscular volume (MCV)Ordered By: Leslie Arriaga on 07-26-2023 MCV (RBC) [Entitic vol] 87.6 fL 80-94 [facility] Hematocrit Auto (Bld) [Volum e fraction]Ordered By: Leslie Arriaga on 07-26-2023 Hematocrit (Bld) [Volume fraction] 39.4 % 40-54 [facility] Laboratory - Chemistry and C hemistry - challengeOrdered By: Leslie Arriaga on 07-26-2023 CO2 [Moles/Vol] 28.0 mmol/L 21.0-32.0 [facility] Natriuretic peptide B (Bld) [Mass/Vol] 233.5 pg/mL 0-100 [facility] Urea nitrogen/Creatinine [Mass ratio] 25.4 mg/mg 10-20 [facility] Laboratory - Hematology and Cell countsOrdered By: Leslie Arriaga on 07-26-2023 Erythrocyte distribution width (RBC) [Entitic vol] 52.0 fL 35.1-43.9 [facility] Erythrocyte distribution width (RBC) [Ratio] 16.3 % 11.6-14.6 [facility] Immature granulocytes/100 WBC (Bld) 0.700 % 0.0-0.9 [facility] Comment on above: IG% - Immature Granu locytes (promyelocytes, myelocytes and metamyelocytes) > 1% indicates that a LEFT SHIFT is Present. MCH (RBC) [Entitic mass] 27.8 pg 27.0-32.0 [facility] Nucleated RBC/100 WBC (Bld) [Ratio] 0 % 0-5 [facility] MCHC Auto (RBC) [Mass/Vol]Or dered By: Leslie Arriaga on 07-26-2023 MCHC (RBC) [Mass/Vol] 31.7 g/dL 32-36 [facility] No Panel InformationOrdered By: Leslie Arriaga on 07-26-2023 Estimated GFR (MDRD) Amer 40 mL/min >60 [facility] Comment on above: GFR Calc Estimated GFR (MDRD) Non-Af Amer 33 mL/min >60 [facility] Comment on above: Non- GFR Calc No Panel InformationOrdered By: Lorie Mart on 07-26-2023 Blood Gas Sample Site R Radial [facility] Blood Gas Specimen Type ART [facility] Blood Gas Total CO2 26 mmol/L [facility] Blood Gas Vent Mode Not entered [facility] Oxygen Delivery Device [id number] [facility] Oxygen (BldA) [Partial press ure]Ordered By: Lorie Mart on 07-26-2023 Oxygen (Bld) [Partial pressure] 77 mmHG 75-100 [facility] Platelets bldOrdered By: Markus chester Corina on 07-26-2023 Platelets (Bld) [#/Vol] 264 10*3/uL 150-450 [facility] Serum or plasma calcium kingsley urement (mass/volume)Ordered By: Leslie Arriaga on 07-26-2023 Calcium [Mass/Vol] 9.3 mg/dL 8.5-10.1 [facility] Serum or plasma creatinine m easurement (mass/volume)Ordered By: Leslie Arriaga on 07-26-2023 Creatinine [Mass/Vol] 2.09 mg/dL 0.70-1.30 [facility] Comment on above: The validity of the calculated GFR & GFRAA in patients over 70 years has not been determined. Clinical correlation is essential. Serum or plasma urea nitroge n measurement (mass/volume)Ordered By: Leslie Arriaga on 07-26-2023 Urea nitrogen [Mass/Vol] 53 mg/dL 7-18 [facility] Thin prep Papanicolaou smear with manual screeningOrdered By: Leslie Arriaga on 07-26-2023 Thin prep Papanicolaou smear with manual screening 2 5-15 [facility] pH measurementOrdered By: Pj Mart on 07-26-2023 pH (Unsp spec) 7.37 [pH] 7.35-7.45 [facility] Anaerobic cultureOrdered By: Joaquim Suárez on 06-22-2023 Bacteria identified Anaer cx Nom (Unsp spec) No anaerobic bacteria isolated. [facility] Bacteria identified Cx Nom ( Wound)Ordered By: Joaquim Suárez on 06-22-2023 Wound Culture Staphylococcus epidermidis [facility] Wound Culture Corynebacterium jeikeium [facility] Fungus cultureOrdered By: Flores Suárez on 06-22-2023 Fungus identified Cx Nom (Unsp spec) [facility] Gram stain for investigation of transfusion reactionOrdered By: Joaquim Suárez on 06-22-2023 Microscopic observation Gram stain Nom (Unsp spec) [facility] Glucose Glucometer (BldC) [M ass/Vol]Ordered By: Joaquim Suárez on 06-08-2023 Glucose [Mass/Vol] 72 mg/dL 74-106 [facility] Comment on above: MANAGEMENT OF PATIEN T CARE PER NURSING PROTOCOL Absolute lymphocyte countOrd ered By: Russ Zamora on 04-17-2023 Lymphocytes Auto (Unsp spec) [#/Vol] 1.02 10*3/uL 0.83-4.51 [facility] Basophil percentageOrdered B y: Russ Zamora on 04-17-2023 Basophils/100 WBC (Bld) 0.5 % 0-1 [facility] Bilirubin [Mass/Vol] 0.30 mg/dL 0.20-1.00 [facility] Comment on above: For patients on eltr ombopag therapy, use of Dimension [place] TBIL is not recommended. Chloride [Moles/Vol] 102 mmol/L 98-107 [facility] Eosinophils/100 WBC (Bld) 2.6 % 0-5 [facility] Glucose [Mass/Vol] 209 mg/dL 74-106 [facility] Comment on above: Glucose result great er than or equal to 200 mg/dLsuggests DIABETES MELLITUS per A.D.A. criteria. LDH [Catalytic activity/Vol] 152 U/L 87-241 [facility] Neutrophils (Bld) [#/Vol] 6.0 10*3/uL 2.0-7.7 [facility] Neutrophils/100 WBC (Bld) 74.2 % 47-70 [facility] Potassium [Moles/Vol] 4.3 mmol/L 3.5-5.1 [facility] Protein [Mass/Vol] 7.8 g/dL 6.4-8.2 [facility] Sodium [Moles/Vol] 136 mmol/L 136-145 [facility] WBC (Bld) [#/Vol] 8.1 10*3/uL 4.4-11.0 [facility] Blood erythrocytes count (nu mber/volume)Ordered By: Russ Zamora on 04-17-2023 RBC (Bld) [#/Vol] 4.45 10*6/uL 4.6-6.2 [facility] Blood hemoglobin measurement (mass/volume)Ordered By: Russ Zamora on 04-17-2023 Hemoglobin (Bld) [Mass/Vol] 12.3 g/dL 13.0-16.5 [facility] Blood lymphocytes/100 leukoc ytesOrdered By: Russ Zamora on 04-17-2023 Lymphocytes/100 WBC (Bld) 12.6 % 19-41 [facility] Blood monocytes/100 leukocyt esOrdered By: Russ Zamora on 04-17-2023 Monocytes/100 WBC (Bld) 9.4 % 0-10 [facility] Blood platelet mean volumeOr dered By: Russ Zamora on 04-17-2023 Platelet mean volume (Bld) [Entitic vol] 9.5 fL 6.2-12.0 [facility] Determination of erythrocyte mean corpuscular volume (MCV)Ordered By: Russ Zamora on 04-17-2023 MCV (RBC) [Entitic vol] 89.9 fL 80-94 [facility] Hematocrit Auto (Bld) [Volum e fraction]Ordered By: Russ Zamora on 04-17-2023 Hematocrit (Bld) [Volume fraction] 40.0 % 40-54 [facility] Laboratory - Chemistry and C hemistry - challengeOrdered By: Russ Zamora on 04-17-2023 ALP [Catalytic activity/Vol] 58 U/L 45-117 [facility] ALT [Catalytic activity/Vol] 21 U/L 16-61 [facility] CO2 [Moles/Vol] 27.0 mmol/L 21.0-32.0 [facility] Globulin (S) [Mass/Vol] 4.5 g/dL 2.2-4.2 [facility] Urea nitrogen/Creatinine [Mass ratio] 20.3 mg/mg 10-20 [facility] Laboratory - Hematology and Cell countsOrdered By: Russ Sera on 04-17-2023 Erythrocyte distribution width (RBC) [Entitic vol] 54.4 fL 35.1-43.9 [facility] Erythrocyte distribution width (RBC) [Ratio] 16.5 % 11.6-14.6 [facility] Immature granulocytes/100 WBC (Bld) 0.700 % 0.0-0.9 [facility] Comment on above: IG% - Immature Granu locytes (promyelocytes, myelocytes and metamyelocytes) > 1% indicates that a LEFT SHIFT is Present. MCH (RBC) [Entitic mass] 27.6 pg 27.0-32.0 [facility] Nucleated RBC/100 W[facility] (Bld) [Ratio] 0 % 0-5 [facility] [Mass/Vol]Or dered By: Russ Zamora on 04-17-2023 MCHC (RBC) [Mass/Vol] 30.8 g/dL 32-36 [facility] No Panel InformationOrdered By: Russ Zamora on 04-17-2023 Estimated Creatinine Clearance Calc 29.38 ml/min [facility] Estimated GFR (MDRD) Amer 45 mL/min >60 [facility] Comment on above: GFR Calc Estimated GFR (MDRD) Non-Af Amer 37 mL/min >60 [facility] Comment on above: Non- GFR Calc Platelets bldOrdered By: Frantz Zamora on 04-17-2023 Platelets (Bld) [#/Vol] 214 10*3/uL 150-450 [facility] Serum or plasma albumin kingsley urement (mass/volume)Ordered By: Russ Zamora on 04-17-2023 Albumin [Mass/Vol] 3.3 g/dL 3.2-5.0 [facility] Serum or plasma albumin/glob ulin mass ratioOrdered By: Russ Zamora on 04-17-2023 Albumin/Globulin [Mass ratio] 0.7 {ratio} 0.9-2.4 [facility] Serum or plasma calcium kingsley urement (mass/volume)Ordered By: Russ Zamora on 04-17-2023 Calcium [Mass/Vol] 9.1 mg/dL 8.5-10.1 [facility] Serum or plasma creatinine m easurement (mass/volume)Ordered By: Russ Zamora on 04-17-2023 Creatinine [Mass/Vol] 1.87 mg/dL 0.70-1.30 [facility] Comment on above: The validity of the calculated GFR & GFRAA in patients over 70 years has not been determined. Clinical correlation is essential. Serum or plasma urea nitroge n measurement (mass/volume)Ordered By: Russ Zamora on 04-17-2023 Urea nitrogen [Mass/Vol] 38 mg/dL 7-18 [facility] Thin prep Papanicolaou smear with manual screeningOrdered By: Russ Zamora on 04-17-2023 Thin prep Papanicolaou smear with manual screening 16 U/L 15-37 [facility] Thin prep Papanicolaou smear with manual screening 7 5-15 [facility] Basophil percentageOrdered B y: Russ Sera on 04-10-2023 Creatinine [Mass/Vol] 1.1 mg/dL 0.70-1.30 [facility] No Panel InformationOrdered By: Russ Zamora on 04-10-2023 Bedside Estimated GFR (eGFR) > 60.0000 mL/min >60 [facility] Anaerobic cultureOrdered By: Bonny Glynn on 01-13-2023 Bacteria identified Anaer cx Nom (Unsp spec) No anaerobic bacteria isolated. [facility] Bacteria identified Cx Nom ( Wound)Ordered By: Bonny Glynn on 01-11-2023 Wound Culture [facility] Gram stain for investigation of transfusion reactionOrdered By: Bonny Glynn on 01-09-2023 Microscopic observation Gram stain Nom (Unsp spec) [facility] Anaerobic cultureOrdered By: Bonny Glynn on 01-08-2023 Bacteria identified Anaer cx Nom (Unsp spec) No anaerobic bacteria isolated. [facility] Bacteria identified Cx Nom ( Wound)Ordered By: Bonny Glynn on 01-08-2023 Wound Culture St[facility] Gram stain for investigation of transfusion reactionOrdered By: Bonny Glynn on 01-08-2023 Microscopic observation Gram stain Nom (Unsp spec) [facility] Laboratory - Microbiology an d Antimicrobial susceptibilityOrdered By: Dr. Ochoa on 01-05-2023 Bacteria identified Cx Nom (Bld) No growth in 5 days. [facility] Culture, urineOrdered By: Dr Marianna Ochoa on 01-02-2023 Bacteria identified Cx Nom (U) Culture exhibits no growth. [facility] Influenza virus A and B and SARS-CoV-2 (COVID-19) Ag panel - Upper respiratory specimOrdered By: Dr. Ochoa on 12-31-2022 SARS-CoV-2 & FLU Antigen (Rapid) Influenzae A [facility] Absolute lymphocyte countOrd ered By: Dr. Ochoa on 12-30-2022 Lymphocytes Auto (Unsp spec) [#/Vol] 0.68 10*3/uL 0.83-4.51 [facility] Basophil percentageOrdered B y: Dr. Ochoa on 12-30-2022 Basophil percentage 0-5 SEEN /hpf 0-5 [facility] Basophils/100 WBC (Bld) 0.5 % 0-1 [facility] Bilirubin [Mass/Vol] 0.50 mg/dL 0.20-1.00 [facility] Comment on above: For patients on eltr ombopag therapy, use of Dimension [place] TBIL is not recommended. Chloride [Moles/Vol] 102 mmol/L 98-107 [facility] Eosinophils/100 WBC (Bld) 0.2 % 0-5 [facility] Glucose [Mass/Vol] 119 mg/dL 74-106 [facility] Comment on above: Fasting Glucose resu lt from 100 to 125 mg/dL suggests IMPAIRED HOMEOSTASIS per A.D.A. criteria. Lactate [Moles/Vol] 1.4 mmol/L 0.4-2.0 [facility] Neutrophils (Bld) [#/Vol] 8.8 10*3/uL 2.0-7.7 [facility] Neutrophils/100 WBC (Bld) 83.3 % 47-70 [facility] Potassium [Moles/Vol] 5.2 mmol/L 3.5-5.1 [facility] Protein [Mass/Vol] 8.2 g/dL 6.4-8.2 [facility] Sodium [Moles/Vol] 134 mmol/L 136-145 [facility] WBC (Bld) [#/Vol] 10.6 10*3/uL 4.4-11.0 [facility] Bilirubin Test strip Ql (U)O rdered By: Dr. Ochoa on 12-30-2022 Bilirubin Ql (U) Negative Negative [facility] Blood erythrocytes count (nu mber/volume)Ordered By: Dr. Ochoa on 12-30-2022 RBC (Bld) [#/Vol] 4.36 10*6/uL 4.6-6.2 [facility] Blood hemoglobin measurement (mass/volume)Ordered By: Dr. Ochoa on 12-30-2022 Hemoglobin (Bld) [Mass/Vol] 12.1 g/dL 13.0-16.5 [facility] Blood lymphocytes/100 leukoc ytesOrdered By: Dr. Ochoa on 12-30-2022 Lymphocytes/100 WBC (Bld) 6.4 % 19-41 [facility] Blood monocytes/100 leukocyt esOrdered By: Dr. Ochoa on 12-30-2022 Monocytes/100 WBC (Bld) 9.1 % 0-10 [facility] Blood platelet mean volumeOr dered By: Dr. Ochoa on 12-30-2022 Platelet mean volume (Bld) [Entitic vol] 10.2 fL 6.2-12.0 [facility] Culture, urineOrdered By: Chino Ochoa on 12-30-2022 Bacteria identified Cx Nom (U) Culture exhibits no growth. [facility] Determination of erythrocyte mean corpuscular volume (MCV)Ordered By: Dr. Ochoa on 12-30-2022 MCV (RBC) [Entitic vol] 87.2 fL 80-94 [facility] Hematocrit Auto (Bld) [Volum e fraction]Ordered By: Dr. Ochoa on 12-30-2022 Hematocrit (Bld) [Volume fraction] 38.0 % 40-54 [facility] INR in Blood by Coagulation assayOrdered By: Dr. Ochoa on 12-30-2022 INR Coag (Bld) [Relative time] 1.3 {INR} [facility] Influenza virus A and B and SARS-CoV-2 (COVID-19) Ag panel - Upper respiratory specimOrdered By: Chris Ochoa on 12-30-2022 SARS-CoV-2 & FLU Antigen (Rapid) Influenzae A [facility] Ketones Test strip Ql (U)Ord ered By: Dr. Ochoa on 12-30-2022 Ketones Ql (U) Negative Negative [facility] Laboratory - Chemistry and C hemistry - challengeOrdered By: Dr. Ochoa on 12-30-2022 ALP [Catalytic activity/Vol] 53 U/L 45-117 [facility] ALT [Catalytic activity/Vol] 22 U/L 16-61 [facility] CO2 [Moles/Vol] 25.0 mmol/L 21.0-32.0 [facility] Globulin (S) [Mass/Vol] 4.7 g/dL 2.2-4.2 [facility] Urea nitrogen/Creatinine [Mass ratio] 22.0 mg/mg 10-20 [facility] Laboratory - CoagulationOrde red By: Dr. Ochoa on 12-30-2022 aPTT Coag (Bld) [Time] 38.9 s 24.1-36.2 [facility] PT Coag (PPP) [Time] 15.8 s 11.7-14.9 [facility] Laboratory - Hematology and Cell countsOrdered By: Dr. Ochoa on 12-30-2022 Erythrocyte distribution width (RBC) [Entitic vol] 50.5 fL 35.1-43.9 [facility] Erythrocyte distribution width (RBC) [Ratio] 15.9 % 11.6-14.6 [facility] Immature granulocytes/100 WBC (Bld) 0.500 % 0.0-0.9 [facility] Comment on above: IG% - Immature Granu locytes (promyelocytes, myelocytes and metamyelocytes) > 1% indicates that a LEFT SHIFT is Present. MCH (RBC) [Entitic mass] 27.8 pg 27.0-32.0 [facility] Nucleated RBC/100 WBC (Bld) [Ratio] 0 % 0-5 [facility] Laboratory - Microbiology an d Antimicrobial susceptibilityOrdered By: Chris Ochoa on 12-30-2022 Bacteria identified Cx Nom (Bld) No growth in 5 days. [facility] MCHC Auto (RBC) [Mass/Vol]Or dered By: Dr. Ochoa on 12-30-2022 MCHC (RBC) [Mass/Vol] 31.8 g/dL 32-36 [facility] Mucus LM Ql (Urine sed)Order ed By: Dr. Ochoa on 12-30-2022 Mucus Ql (Urine sed) 0 SEEN /hpf [facility] Nitrite Test strip Ql (U)Ord ered By: Dr. Ochoa on 12-30-2022 Nitrite Ql (U) Negative Negative [facility] No Panel InformationOrdered By: Dr. Ochoa on 12-30-2022 Estimated Creatinine Clearance Calc 27.91 ml/min [facility] Estimated GFR (MDRD) Amer 42 mL/min >60 [facility] Comment on above: GFR Calc Estimated GFR (MDRD) Non-Af Amer 35 mL/min >60 [facility] Comment on above: Non- GFR Calc Platelets bldOrdered By: Dr. Ochoa on 12-30-2022 Platelets (Bld) [#/Vol] 210 10*3/uL 150-450 [facility] Protein Test strip Ql (U)Ord ered By: Dr. Ochoa on 12-30-2022 Protein Ql (U) 100 mg/dl Negative [facility] Serum or plasma albumin kingsley urement (mass/volume)Ordered By: Dr. Ochoa on 12-30-2022 Albumin [Mass/Vol] 3.5 g/dL 3.2-5.0 [facility] Serum or plasma albumin/glob ulin mass ratioOrdered By: Dr. Ochoa on 12-30-2022 Albumin/Globulin [Mass ratio] 0.7 {ratio} 0.9-2.4 [facility] Serum or plasma calcium kingsley urement (mass/volume)Ordered By: Dr. Ochoa on 12-30-2022 Calcium [Mass/Vol] 9.2 mg/dL 8.5-10.1 [facility] Serum or plasma creatinine m easurement (mass/volume)Ordered By: Dr. Ochoa on 12-30-2022 Creatinine [Mass/Vol] 2.00 mg/dL 0.70-1.30 [facility] Comment on above: The validity of the calculated GFR & GFRAA in patients over 70 years has not been determined. Clinical correlation is essential. Serum or plasma urea nitroge n measurement (mass/volume)Ordered By: Dr. Ochoa on 12-30-2022 Urea nitrogen [Mass/Vol] 44 mg/dL 7-18 [facility] Squamous epithelial cells de tection in urine sediment by light microscopyOrdered By: Dr. Ochoa on 12-30-2022 Epithelial cells.squamous LM Ql (Urine sed) 0 SEEN /hpf 0-5 [facility] Thin prep Papanicolaou smear with manual screeningOrdered By: Dr. Ochoa on 12-30-2022 Thin prep Papanicolaou smear with manual screening 22 U/L 15-37 [facility] Thin prep Papanicolaou smear with manual screening 7 5-15 [facility] Urine blood detectionOrdered By: Dr. Ochoa on 12-30-2022 RBC Ql (U) 25 /ul Negative [facility] RBC Ql (U) 0 SEEN /hpf 0-5 [facility] Urine clarityOrdered By: Dr. Ochoa on 12-30-2022 Clarity (U) Clear Clear [facility] Urine color determinationOrd ered By: Dr. Ochoa on 12-30-2022 Color (U) Yellow Yellow [facility] Urine glucose detectionOrder ed By: Dr. Ochoa on 12-30-2022 Glucose Ql (U) Normal mg/dl Normal [facility] Urine leukocyte esterase det ection by dipstickOrdered By: Dr. Ochoa on 12-30-2022 Leukocyte esterase Test strip Ql (U) 25 /ul Negative [facility] Urine pHOrdered By: Dr. Amy chowdhury on 12-30-2022 pH (U) 7.0 [pH] 5.0 - 8.0 [facility] Urine sediment bacteria coun t by microscopy (number/high power field)Ordered By: Dr. Ochoa on 12-30-2022 Bacteria LM.HPF (Urine sed) [#/Area] 0 /[HPF] None Seen [facility] Urine specific gravity measu rementOrdered By: Dr. Ochoa on 12-30-2022 Specific gravity (U) [Rel density] 1.005 1.002-1.03 0 [facility] Urobilinogen Auto test strip Ql (U)Ordered By: Dr. Ochoa on 12-30-2022 Urobilinogen Ql (U) Normal mg/dl Normal [facility] Absolute lymphocyte countOrd ered By: Dr. Zamora on 10-16-2022 Lymphocytes Auto (Unsp spec) [#/Vol] 1.25 10*3/uL 0.83-4.51 [facility] Basophil percentageOrdered B y: Dr. Zamora on 10-16-2022 Basophils/100 WBC (Bld) 0.6 % 0-1 [facility] Bilirubin [Mass/Vol] 0.30 mg/dL 0.20-1.00 [facility] Comment on above: For patients on eltr ombopag therapy, use of Dimension [place] TBIL is not recommended. Chloride [Moles/Vol] 106 mmol/L 98-107 [facility] Eosinophils/100 WBC (Bld) 1.4 % 0-5 [facility] Glucose [Mass/Vol] 225 mg/dL 74-106 [facility] Comment on above: Glucose result great er than or equal to 200 mg/dLsuggests DIABETES MELLITUS per A.D.A. criteria. LDH [Catalytic activity/Vol] 135 U/L 87-241 [facility] Neutrophils (Bld) [#/Vol] 5.1 10*3/uL 2.0-7.7 [facility] Neutrophils/100 WBC (Bld) 70.2 % 47-70 [facility] Potassium [Moles/Vol] 4.5 mmol/L 3.5-5.1 [facility] Protein [Mass/Vol] 7.8 g/dL 6.4-8.2 [facility] Sodium [Moles/Vol] 139 mmol/L 136-145 [facility] WBC (Bld) [#/Vol] 7.3 10*3/uL 4.4-11.0 [facility] Blood erythrocytes count (nu mber/volume)Ordered By: Dr. Zamora on 10-16-2022 RBC (Bld) [#/Vol] 3.94 10*6/uL 4.6-6.2 [facility] Blood hemoglobin measurement (mass/volume)Ordered By: Dr. Zamora on 10-16-2022 Hemoglobin (Bld) [Mass/Vol] 11.5 g/dL 13.0-16.5 [facility] Blood lymphocytes/100 leukoc ytesOrdered By: Dr. Zamora on 10-16-2022 Lymphocytes/100 WBC (Bld) 17.2 % 19-41 [facility] Blood monocytes/100 leukocyt esOrdered By: Dr. Zamora on 10-16-2022 Monocytes/100 WBC (Bld) 9.8 % 0-10 [facility] Blood platelet mean volumeOr dered By: Dr. Zamora on 10-16-2022 Platelet mean volume (Bld) [Entitic vol] 9.9 fL 6.2-12.0 [facility] Determination of erythrocyte mean corpuscular volume (MCV)Ordered By: Dr. Zamora on 10-16-2022 MCV (RBC) [Entitic vol] 91.1 fL 80-94 [facility] Hematocrit Auto (Bld) [Volum e fraction]Ordered By: Dr. Zamora on 10-16-2022 Hematocrit (Bld) [Volume fraction] 35.9 % 40-54 [facility] Laboratory - Chemistry and C hemistry - challengeOrdered By: Dr. Zamora on 10-16-2022 ALP [Catalytic activity/Vol] 52 U/L 45-117 [facility] ALT [Catalytic activity/Vol] 19 U/L 16-61 [facility] CO2 [Moles/Vol] 26.0 mmol/L 21.0-32.0 [facility] Globulin (S) [Mass/Vol] 4.5 g/dL 2.2-4.2 [facility] Urea nitrogen/Creatinine [Mass ratio] 17.5 mg/mg 10-20 [facility] Laboratory - Hematology and Cell countsOrdered By: Dr. Zamora on 10-16-2022 Erythrocyte distribution width (RBC) [Entitic vol] 50.4 fL 35.1-43.9 [facility] Erythrocyte distribution width (RBC) [Ratio] 15.2 % 11.6-14.6 [facility] Immature granulocytes/100 WBC (Bld) 0.800 % 0.0-0.9 [facility] Comment on above: IG% - Immature Granu locytes (promyelocytes, myelocytes and metamyelocytes) > 1% indicates that a LEFT SHIFT is Present. MCH (RBC) [Entitic mass] 29.2 pg 27.0-32.0 [facility] Nucleated RBC/100 WBC (Bld) [Ratio] 0 % 0-5 [facility] MCHC Auto (RBC) [Mass/Vol]Or dered By: Dr. Zamora on 10-16-2022 MCHC (RBC) [Mass/Vol] 32.0 g/dL 32-36 [facility] No Panel InformationOrdered By: Dr. Zamora on 10-16-2022 Estimated GFR (MDRD) Amer 45 mL/min >60 [facility] Comment on above: GFR Calc Estimated GFR (MDRD) Non-Af Amer 37 mL/min >60 [facility] Comment on above: Non- GFR Calc Platelets bldOrdered By: Dr. Zamora on 10-16-2022 Platelets (Bld) [#/Vol] 193 10*3/uL 150-450 [facility] Serum or plasma albumin kingsley urement (mass/volume)Ordered By: Dr. Zamora on 10-16-2022 Albumin [Mass/Vol] 3.3 g/dL 3.2-5.0 [facility] Serum or plasma albumin/glob ulin mass ratioOrdered By: Dr. Zamora on 10-16-2022 Albumin/Globulin [Mass ratio] 0.7 {ratio} 0.9-2.4 [facility] Serum or plasma calcium kingsley urement (mass/volume)Ordered By: Dr. Zamora on 10-16-2022 Calcium [Mass/Vol] 9.3 mg/dL 8.5-10.1 [facility] Serum or plasma creatinine m easurement (mass/volume)Ordered By: Dr. Zamora on 10-16-2022 Creatinine [Mass/Vol] 1.89 mg/dL 0.70-1.30 [facility] Comment on above: The validity of the calculated GFR & GFRAA in patients over 70 years has not been determined. Clinical correlation is essential. Serum or plasma urea nitroge n measurement (mass/volume)Ordered By: Dr. Zamora on 10-16-2022 Urea nitrogen [Mass/Vol] 33 mg/dL 7-18 [facility] Thin prep Papanicolaou smear with manual screeningOrdered By: Dr. Zamora on 10-16-2022 Thin prep Papanicolaou smear with manual screening 17 U/L 15-37 [facility] Thin prep Papanicolaou smear with manual screening 7 5-15 [facility] Basophil percentageOrdered B y: Dr. Zamora on 10-09-2022 Creatinine [Mass/Vol] 1.4 mg/dL 0.70-1.30 [facility] Laboratory - Chemistry and C hemistry - challengeOrdered By: Dr. 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 [facility] Bilirubin Test strip Ql (U)O rdered By: Bonny Glynn on 10-02-2022 Bilirubin Ql (U) Negative Negative [facility] Ketones Test strip Ql (U)Ord ered By: Bonny Glynn on 10-02-2022 Ketones Ql (U) Negative Negative [facility] Nitrite Test strip Ql (U)Ord ered By: Bonny Glynn on 10-02-2022 Nitrite Ql (U) Positive Negative [facility] Protein Test strip Ql (U)Ord ered By: Bonny Glynn on 10-02-2022 Protein Ql (U) 100 mg/dl Negative [facility] Urine blood detectionOrdered By: Bonny Glynn on 10-02-2022 RBC Ql (U) 25 /ul Negative [facility] Urine clarityOrdered By: Ysabel Glynn on 10-02-2022 Clarity (U) Cloudy Clear [facility] Urine color determinationOrd ered By: Bonny Glynn on 10-02-2022 Color (U) Yellow Yellow [facility] Urine glucose detectionOrder ed By: Bonny Glynn on 10-02-2022 Glucose Ql (U) 50 mg/dl Normal [facility] Urine leukocyte esterase det ection by dipstickOrdered By: Bonny Glynn on 10-02-2022 Leukocyte esterase Test strip Ql (U) 500 /ul Negative [facility] Urine pHOrdered By: Bonny orosco on 10-02-2022 pH (U) 6.0 [pH] 5.0 - 8.0 [facility] Urine specific gravity measu rementOrdered By: Bonny Glynn on 10-02-2022 Specific gravity (U) [Rel density] 1.010 1.002-1.03 0 [facility] Urobilinogen Auto test strip Ql (U)Ordered By: Bonny Glynn on 10-02-2022 Urobilinogen Ql (U) Normal mg/dl Normal [facility]Non [facility]2022 [facility] KADYPEDRO ([id number]) 1945 M Date Time Provider Department 07/28/22 STEVEN MELGAR During your visit today, we recorded the following information about you: Steven Melgar APRN.CNP 07/28/2022 1:45 PM Signed In reviewing [...] Status:Closed by STEVEN MELGAR on 08/09/22 Normal [facility] Anaerobic cultureOrdered By: Bonny Glynn on 07-21-2022 Bacteria identified Anaer cx Nom (Unsp spec) No anaerobic bacteria isolated. [facility] Bacteria identified Cx Nom ( Wound)Ordered By: Bonny Glynn on 07-20-2022 Wound Culture Staphylococcus pseudintermediu [facility] Gram stain for investigation of transfusion reactionOrdered By: Bonny Glynn on 07-19-2022 Microscopic observation Gram stain Nom (Unsp spec) [facility] No Panel InformationOrdered By: Dr. Choi on 06-01-2022 Estimated GFR (MDRD) Amer 63 mL/min >60 [facility] Comment on above: GFR Calc Estimated GFR (MDRD) Non-Af Amer 52 mL/min >60 [facility] Comment on above: Non- GFR Calc Serum or plasma creatinine m easurement (mass/volume)Ordered By: Dr. Choi on 06-01-2022 Creatinine [Mass/Vol] 1.40 mg/dL 0.70-1.30 [facility] Comment on above: The validity of the calculated GFR & GFRAA in patients over 70 years has not been determined. Clinical correlation is essential. Basophil percentageon 2021 Basophil percentage < 0.9 mg/dL 0.70-1.30 [facility] Work Phone: No Panel Informationon 05-22 Bedside Estimated GFR (eGFR) > 60.0000 mL/min >60 [facility] Work Phone: Absolute lymphocyte counton 04-14-2022 Lymphocytes Auto (Unsp spec) [#/Vol] 0.64 10*3/uL 0.83-4.51 [facility] Work Phone: Basophil percentageon 2021 Basophil percentage 0 SEEN /hpf 0-5 [facility] Work Phone: Basophils/100 WBC (Bld) 0.3 % 0-1 [facility] Work Phone: Bilirubin [Mass/Vol] 0.50 mg/dL 0.20-1.00 [facility] Work Phone: Comment on above: For patients on eltr ombopag therapy, use of Dimension [place] TBIL is not recommended. Chloride [Moles/Vol] 103 mmol/L 98-107 [facility] Work Phone: [phone] Eosinophils/100 WBC (Bld) 0.5 % 0-5 [facility] Work Phone: [phone] Glucose [Mass/Vol] 46 mg/dL 74-106 [facility] Work Phone: [phone] Comment on above: Glucose result less than 50 mg/dL suggests HYPOGLYCEMIA. Neutrophils (Bld) [#/Vol] 5.0 10*3/uL 2.0-7.7 [facility] Work Phone: [phone] Neutrophils/100 WBC (Bld) 76.1 % 47-70 [facility] Work Phone: [phone] Potassium [Moles/Vol] 4.2 mmol/L 3.5-5.1 [facility] Work Phone: [phone] Protein [Mass/Vol] 8.2 g/dL 6.4-8.2 [facility] Work Phone: [phone] Sodium [Moles/Vol] 136 mmol/L 136-145 [facility] Work Phone: [phone] WBC (Bld) [#/Vol] 6.6 10*3/uL 4.4-11.0 [facility] Work Phone: Bilirubin Test strip Ql (U)o n 04-14-2022 Bilirubin Ql (U) Negative Negative [facility] Work Phone: [phone] Blood erythrocytes count (nu mber/volume)on 04-14-2022 RBC (Bld) [#/Vol] 5.00 10*6/uL 4.6-6.2 [facility] Work Phone: [phone] Blood hemoglobin measurement (mass/volume)on 04-14-2022 Hemoglobin (Bld) [Mass/Vol] 13.9 g/dL 13.0-16.5 [facility] Work Phone: [phone] Blood lymphocytes/100 leukoc yteson 04-14-2022 Lymphocytes/100 WBC (Bld) 9.7 % 19-41 [facility] Work Phone: Blood monocytes/100 leukocyt eson 04-14-2022 Monocytes/100 WBC (Bld) 12.3 % 0-10 [facility] Work Phone: Blood platelet mean volumeon 04-14-2022 Platelet mean volume (Bld) [Entitic vol] 10.5 fL 6.2-12.0 [facility] Work Phone: Determination of erythrocyte mean corpuscular volume (MCV)on 04-14-2022 MCV (RBC) [Entitic vol] 86.4 fL 80-94 [facility] Work Phone: Glucose Glucometer (BldC) [M ass/Vol]on 04-14-2022 Glucose [Mass/Vol] 113 mg/dL 74-106 [facility] Work Phone: Comment on above: MANAGEMENT OF PATIEN T CARE PER NURSING PROTOCOL Hematocrit Auto (Bld) [Volum e fraction]on 04-14-2022 Hematocrit (Bld) [Volume fraction] 43.2 % 40-54 [facility] Work Phone: INR in Blood by Coagulation assayon 04-14-2022 INR Coag (Bld) [Relative time] 1.1 {INR} [facility] Work Phone: Ketones Test strip Ql (U)on 04-14-2022 Ketones Ql (U) 5 mg/dl Negative [facility] Work Phone: Laboratory - Chemistry and C hemistry - challengeon 04-14-2022 ALP [Catalytic activity/Vol] 63 U/L 45-117 [facility] Work Phone: ALT [Catalytic activity/Vol] 29 U/L 16-61 [facility] Work Phone: CO2 [Moles/Vol] 25.0 mmol/L 21.0-32.0 [facility] Work Phone: Globulin (S) [Mass/Vol] 5.1 g/dL 2.2-4.2 [facility] Work Phone: Urea nitrogen/Creatinine [Mass ratio] 37.6 mg/mg 10-20 [facility] Work Phone: Laboratory - Coagulationon 0 04-14-2022 PT Coag (PPP) [Time] 14.0 s 11.7-14.9 [facility] Work Phone: Laboratory - Hematology and Cell countson 04-14-2022 Erythrocyte distribution width (RBC) [Entitic vol] 49.0 fL 35.1-43.9 [facility] Work Phone: Erythrocyte distribution width (RBC) [Ratio] 15.4 % 11.6-14.6 [facility] Work Phone: [phone] Immature granulocytes/100 WBC (Bld) 1.100 % 0.0-0.9 [facility] Work Phone: Comment on above: IG% - Immature Granu locytes (promyelocytes, myelocytes and metamyelocytes) > 1% indicates that a LEFT SHIFT is Present. MCH (RBC) [Entitic mass] 27.8 pg 27.0-32.0 [facility] Work Phone: Nucleated RBC/100 WBC (Bld) [Ratio] 0 % 0-5 [facility] Work Phone: MCHC Auto (RBC) [Mass/Vol]on 04-14-2022 MCHC (RBC) [Mass/Vol] 32.2 g/dL 32-36 [facility] Work Phone: Mucus LM Ql (Urine sed)on Mucus Ql (Urine sed) 0 SEEN /hpf [facility] Work Phone: Nitrite Test strip Ql (U)on 04-14-2022 Nitrite Ql (U) Negative Negative [facility] Work Phone: No Panel Informationon 04-14 Estimated Creatinine Clearance Calc 35.56 ml/min [facility] Work Phone: Estimated GFR (MDRD) Amer 55 mL/min >60 [facility] Work Phone: Comment on above: GFR Calc Estimated GFR (MDRD) Non-Af Amer 46 mL/min >60 [facility] Work Phone: Comment on above: Non- GFR Calc Platelets bldon 04-14-2022 Platelets (Bld) [#/Vol] 293 10*3/uL 150-450 [facility] Work Phone: Platelets (Bld) [#/Vol] 287 10*3/uL 150-450 [facility] Work Phone: Protein Test strip Ql (U)on 04-14-2022 Protein Ql (U) 30 mg/dl Negative [facility] Work Phone: Serum or plasma albumin kings[place] urement (mass/volume)on 04-14-2022 Albumin [Mass/Vol] 3.1 g/dL 3.2-5.0 [facility] Work Phone: Serum or plasma albumin/glob ulin mass ratioon 04-14-2022 Albumin/Globulin [Mass ratio] 0.6 {ratio} 0.9-2.4 [facility] Work Phone: Serum or plasma calcium kings[place] urement (mass/volume)on 04-14-2022 Calcium [Mass/Vol] 9.9 mg/dL 8.5-10.1 [facility] Work Phone: Serum or plasma creatinine m easurement (mass/volume)on 04-14-2022 Creatinine [Mass/Vol] 1.57 mg/dL 0.70-1.30 [facility] Work Phone: Comment on above: The validity of the calculated GFR & GFRAA in patients over 70 years has not been determined. Clinical correlation is essential. Serum or plasma urea nitroge n measurement (mass/volume)on 04-14-2022 Urea nitrogen [Mass/Vol] 59 mg/dL 7-18 [facility] Work Phone: Squamous epithelial cells de tection in urine sediment by light microscopyon 04-14-2022 Epithelial cells.squamous LM Ql (Urine sed) 0-5 SEEN /hpf 0-5 [facility] Work Phone: Thin prep Papanicolaou smear with manual screeningon 04-14-2022 Thin prep Papanicolaou smear with manual screening 30 U/L 15-37 [facility] Work Phone: [phone] Thin prep Papanicolaou smear with manual screening 8 5-15 [facility] Work Phone: [phone] Urine blood detectionon - RBC Ql (U) Negative Negative [facility] Work Phone: [phone] RBC Ql (U) 0 SEEN /hpf 0-5 [facility] Work Phone: [phone] Urine clarityon 04-14-2022 Clarity (U) Clear Clear [facility] Work Phone: Urine color determinationon 04-14-2022 Color (U) Yellow Yellow [facility] Work Phone: [phone] Urine glucose detectionon Glucose Ql (U) Normal mg/dl Normal [facility] Work Phone: [phone] Urine leukocyte esterase det ection by dipstickon 04-14-2022 Leukocyte esterase Test strip Ql (U) 25 /ul Negative [facility] Work Phone: [phone] Urine pHon 04-14-2022 pH (U) 6.0 [pH] 5.0 - 8.0 [facility] Work Phone: [phone] Urine sediment bacteria coun t by microscopy (number/high power field)on 04-14-2022 Bacteria LM.HPF (Urine sed) [#/Area] 0 /[HPF] None Seen [facility] Work Phone: [phone] Urine specific gravity measu rementon 04-14-2022 Specific gravity (U) [Rel density] 1.010 1.002-1.03 0 [facility] Work Phone: [phone] Urobilinogen Auto test strip Ql (U)on 04-14-2022 Urobilinogen Ql (U) Normal mg/dl Normal [facility] Work Phone: Basophil percentageon 2021 Creatinine [Mass/Vol] 1.4 mg/dL 0.70-1.30 [facility] Work Phone: Laboratory - Chemistry and C hemistry - challengeon 04-12-2022 GFR/1.73 sq M.predicted among non-blacks MDRD (S/P/Bld) [Vol rate/Area] 50.0000 mL/min/{1.73_m2} >60 [facility] Work Phone: CNPNon 04-06-2022 [facility] Telephone ([facility]) -- PEDRO HILLMAN ([id number]) 1945 M Date Time Provider Department 04/06/22 CARLOS WHELAN [facility] During your visit today, we recorded the [...] unable to reach patient and contact center specialist is spouse with same number.Sigrid Mock 04/07/2022 5:49 PM Signed Unable to reach patient. Mailbox full/Mailbox not set up/ Number incorrect. Please try again later. Jenny Mock 04/08/2022 9:23 AM Signed left message on machine to give call back, different number from pharmacy. [phone]. Jenny Mock 04/08/2022 2:56 PM Signed Notified [...] Status:Closed by JENNY MOCK on 04/08/22 Normal [facility] Bacteria Ur Culton 2 Bacteria identified Cx Nom (U) [id number] Abnormal [facility] Comment on above: Order Comment: Speci men Type: URINE SPECIMEN Ordering Facility: [facility] [address] [place] [address] Result Comment: >=10 0,000 CFU/ml Streptococcus mitis-oralis group No further workup Performed By: #### 6 30-4 #### [facility] CLIA [id number] [address] [id number] [place] CNOVon 04-05-2022 CNOV Office Visit ([facility] ) -- PEDRO HILLMAN ([id number]) 1945 M Date Time Provider Department 04/05/22 1:15 PM STEVEN MELGAR [facility] During your visit today, we recorded the following information about you: Temperature Pulse Respiration Blood pressure 101.6 degrees 76/minute 16/minute 122/76 Weight 87.1 kg Steven Melgar APRN.LEAD MECHANIC 04/05/2022 3:51 PM Signed Subjective HPI Pedro Nora Hillman is a 77 year old male [...] Z20.822 - COVID WITH FLUA+B, ROUTINE Steven WOODROW Melgar APRN.CNP 04/05/2022 2:27 PM Addendum ASSESSMENT/PLAN: [...] up a (more content not included)... Normal [facility] 04-05-2022 TASIA Telephone ([facility]) -- PEDRO HILLMAN ([id number]) 1945 M Date Time Provider Department 04/05/22 STEVEN MELGAR [facility] During your visit today, we recorded the following information about you: Steven Melgar APRN.CNP 04/05/2022 2:59 PM Signed Radiology report faxed to patient's PCP Dr. Tonio Fajardo at [phone]. Confirmation of fax received. Patient was advised to call Dr. Fajardo today for a follow up appointment. Steven Melgar APRN.LEAD MECHANIC Allergies As of Date: 04/05/2022 Noted Allergy [...] Status:Closed by STEVEN MELGAR on 04/05/22 Normal [facility] No Panel InformationOrdered By: Ccf Provider on 04-05-2022 Radiology Result ACTIONABLE Abnormal [facility] Comment on above: This report contains an [...] BILIRUBIN UA (POCT) Negative Negative [facility] CLARITY UA (POCT) Cloudy [facility] COLOR UA (POCT) Dark yellow [facility] GLUCOSE UA (POCT) Negative Negative mg/dL [facility] HEMOGLOBIN/BLOOD UA (POCT) Small Abnormal Negative [facility] KETONE UA (POCT) Negative Negative mg/dL [facility] LEUKOCYTES UA (POCT) Large Abnormal Negative [facility] NITRITE [facility] (POCT) Negative Negative [facility] PH UA (POCT) 6.0 4.5 - 8.0 [facility] Protein Ql (U) 100 mg/dL Abnormal Negative mg/dL [facility] SPECIFIC GRAVITY UA (POCT) 1.020 1.005 - 1.030 [facility] UROBILINOGEN UA (POCT) 0.2 E.U./dL Umm l E.U./dL [facility] XR CHEST 2V FRONTAL/LATon XR CHEST 2V [...] be communicated with the ordering provider via [employer] staff message or phone message by [employer] within 2 business days of report finalization. Algorithms for management of incidental imaging findings can be found on the [facility] Intranet Sharepoint site at: [email or web address]/Managi ng%20Incidental%20Findi ngs%20at%20Imaging/Forms/A llItems.aspx Lithopone Charger: JONATHAN Transcribe Date/Time: Apr 05 2022 2:11P Dictated by : SANDEEP ORTIZ MD This examination was interpreted and the report reviewed and electronically signed by: SANDEEP ORTIZ MD on Apr 05 2022 2:13PM EST [id number] ACTIONABLE Invalid Interpretation Code [facility] XR Chest PA and LateralOrder ed By: [facility] Provider on 04-05-2022 Interpretation and review of laboratory results Abnormal [facility] XR Chest PA and Lateralon IMPRESSION: [...] be communicated with the ordering provider via [employer] staff message or phone message by [employer] within 2 business days of report finalization. Algorithms for management of incidental imaging findings can be found on the [facility] Onsite Care Sharepoint site at: [email or web address]/job/Managi ng%20Incidental%20Findi ngs%20at%20Imaging/Forms/A llItems.aspx Lithopone Charger: JONATHAN Transcribe Date/Time: Apr 05 2022 2:11P [...] the thoracic spine. DIVISION OF RADIOLOGY Provider, [facility] - 04/05/2022 * * *Final Report* * [...] be communicated with the ordering provider via [employer] staff message or phone message by [employer] within 2 business days of report finalization. Algorithms for management of incidental imaging findings can be found on the [facility] Intranet Sharepoint site at: [email or web address]/Managi ng%20Incidental%20Findi ngs%20at%20Imaging/Forms/A llItems.aspx Lithopone Charger: JONATHAN Transcribe Date/Time: Apr 05 2022 2:11P Dictated by : SANDEEP ORTIZ MD This examination was interpreted and the report reviewed and electronically signed by: SANDEEP ORTIZ MD on Apr 05 2022 2:13PM EST [facility] Radiology Study observation (narrative) [facility] Anaerobic culture Bacteria identified Anaer cx Nom (Unsp spec) No anaerobic bacteria isolated. [facility] Work Phone: Bacteria identified Anaer cx Nom (Unsp spec) Anaerobic Culture Anaerobic cocci [facility] Work Phone: Bacteria identified Cx Nom ( Wound) Wound Culture Staphylococcus pseudintermediu [facility] Work Phone: Wound Culture Staphylococcus saprophyticus [facility] Work Phone: Gram stain for investigation of transfusion reaction Microscopic observation Gram stain Nom (Unsp spec) [facility] Work Phone: Vital Signs Date Time Vital Sign Value Performing Clinician Facility 05-04-2025 22:43-0400 Diastolic blood pressure 62 mm[Hg] Dr. Tonio Fajardo DO Work Phone: [facility] 05-04-2025 22:43-0400 Heart rate 99 /min Dr. Tonio Fajardo DO Work Phone: [facility] 05-04-2025 22:43-0400 Systolic blood pressure 143 mm[Hg] Dr. Tonio Fajardo DO Work Phone: [facility] 05-04-2025 22:34-0400 Inhaled oxygen flow rate 3 L/min Dr. Tonio Fajardo DO Work Phone: [facility] 05-04-2025 22:34-0400 SaO2% (BldA) [Mass fraction] 98 % Dr. Tonio Fajardo DO Work Phone: [facility] 05-04-2025 19:52-0400 Respiratory rate 16 /min Dr. Tonio Fajardo DO Work Phone: [facility] 05-04-2025 17:44-0400 Body temperature 97.2 [degF] Dr. Tonio Fajardo DO Work Phone: [facility] 05-04-2025 16:45-0400 Body temperature 97.3 [degF] Dr. Tonio Fajardo DO Work Phone: [facility] 05-04-2025 16:45-0400 Diastolic blood pressure 52 mm[Hg] Dr. Tonio Fajardo DO Work Phone: [facility] 05-04-2025 16:45-0400 Heart rate 101 /min Dr. Tonio Fajardo DO Work Phone: [facility] 05-04-2025 16:45-0400 Inhaled oxygen flow rate 3 L/min Dr. Tonio Fajardo DO Work Phone: [facility] 05-04-2025 16:45-0400 Respiratory rate 16 /min Dr. Tonio Fajardo DO Work Phone: [facility] 05-04-2025 16:45-0400 SaO2% (BldA) [Mass fraction] 97 % Dr. Tonio Fajardo DO Work Phone: [facility] 05-04-2025 16:45-0400 Systolic blood pressure 142 mm[Hg] Dr. Tonio Fajardo DO Work Phone: [facility] 05-04-2025 14:51-0400 Body height 167.[address] Tonio Fajardo DO Work Phone: [facility] 05-04-2025 14:51-0400 Body mass index (BMI) [Ratio] 25.7 kg/m2 Dr. Tonio Fajardo DO Work Phone: [facility] 05-04-2025 14:51-0400 Body weight 72.[address] Tonio Fajardo DO Work Phone: [facility] 05-04-2025 13:41-0400 Body weight 72.[address] Tonio Fajardo DO Work Phone: [facility] 05-04-2025 13:25-0400 Body mass index (BMI) [Ratio] 25.7 kg/m2 Dr. Tonio Fajardo DO Work Phone: [facility] 04-28-2025 21:30-0400 Heart rate 100 /min Dr. Tonio Fajardo DO Work Phone: [facility] 04-28-2025 21:30-0400 Respiratory rate 20 /min Dr. Tonio Fajardo DO Work Phone: [facility] 04-28-2025 21:09-0400 Diastolic blood pressure 59 mm[Hg] Dr. Tonio Fajardo DO Work Phone: [facility] 04-28-2025 21:09-0400 Systolic blood pressure 136 mm[Hg] Dr. Tonio Fajardo DO Work Phone: [facility] 04-28-2025 15:29-0400 Inhaled oxygen flow rate 3 L/min Dr. Tonio Fajardo DO Work Phone: [facility] 04-28-2025 14:53-0400 Body mass index (BMI) [Ratio] 25.7 kg/m2 Dr. Tonio Fajardo DO Work Phone: [facility] 04-28-2025 14:53-0400 Body weight 72.[address] Tonio Fajardo DO Work Phone: [facility] 04-28-2025 10:58-0400 SaO2% (BldA) [Mass fraction] 100 % Dr. Tonio Fajardo DO Work Phone: [facility] 04-28-2025 08:44-0400 Body temperature 97.2 [degF] Dr. Tonio Fajardo DO Work Phone: [facility] 04-27-2025 21:42-0400 Diastolic blood pressure 57 mm[Hg] Dr. Tonio Fajardo DO Work Phone: [facility] 04-27-2025 21:42-0400 Heart rate 97 /min Dr. Tonio Fajardo DO Work Phone: [facility] 04-27-2025 21:42-0400 Systolic blood pressure 140 mm[Hg] Dr. Tonio Fajardo DO Work Phone: [facility] 04-27-2025 21:38-0400 Inhaled oxygen flow rate 3 L/min Dr. Tonio Fajardo DO Work Phone: [facility] 04-27-2025 21:38-0400 SaO2% (BldA) [Mass fraction] 98 % Dr. Tonio Fajardo DO Work Phone: [facility] 04-27-2025 08:00-0400 Body temperature 97.6 [degF] Dr. Tonio Fajardo DO Work Phone: [facility] 04-27-2025 08:00-0400 Respiratory rate 20 /min Dr. Tonio Fajardo DO Work Phone: [facility] 04-24-2025 10:25-0400 Body height [address] Tonio Fajardo DO Work Phone: [facility] 04-24-2025 10:25-0400 Body weight 71.[address] Tonio Fajardo DO Work Phone: [facility] 04-23-2025 19:14-0400 Body mass index (BMI) [Ratio] 25.2 kg/m2 Dr. Tonio Fajardo DO Work Phone: [facility] 04-23-2025 14:00-0400 Body temperature 97.9 [degF] Dr. Tonio Fajardo DO Work Phone: [facility] 04-23-2025 14:00-0400 Diastolic blood pressure 73 mm[Hg] Dr. Tonio Fajardo DO Work Phone: [facility] 04-23-2025 14:00-0400 Heart rate 97 /min Dr. Tonio Fajardo DO Work Phone: [facility] 04-23-2025 14:00-0400 Inhaled oxygen flow rate 2 L/min Dr. Tonio Fajardo DO Work Phone: [facility] 04-23-2025 14:00-0400 Respiratory rate 18 /min Dr. Tonio Fajardo DO Work Phone: [facility] 04-23-2025 14:00-0400 SaO2% (BldA) [Mass fraction] 96 % Dr. Tonio Fajardo DO Work Phone: [facility] 04-23-2025 14:00-0400 Systolic blood pressure 109 mm[Hg] Dr. Tonio Fajardo DO Work Phone: [facility] 04-20-2025 13:48-0400 Body height 167.[address] Tonio Fajardo DO Work Phone: [facility] 04-20-2025 13:48-0400 Body weight 65.[address] Tonio Fajardo DO Work Phone: [facility] 04-19-2025 21:50-0400 Inhaled oxygen concentration 2 % Dr. Tonio Fajardo DO Work Phone: [facility] 04-19-2025 12:12-0400 Body mass index (BMI) [Ratio] 23.1 kg/m2 Dr. Tonio Fajardo DO Work Phone: [facility] 04-19-2025 11:03-0400 Body temperature 97.9 [degF] Dr. Tonio Fajardo DO Work Phone: [facility] 04-19-2025 11:03-0400 Diastolic blood pressure 66 mm[Hg] Dr. Tonio Fajardo DO Work Phone: [facility] 04-19-2025 11:03-0400 Heart rate 102 /min Dr. Tonio Fajardo DO Work Phone: [facility] 04-19-2025 11:03-0400 Respiratory rate 16 /min Dr. Tonio Fajardo DO Work Phone: [facility] 04-19-2025 11:03-0400 SaO2% (BldA) [Mass fraction] 100 % Dr. Tonio Fajardo DO Work Phone: [facility] 04-19-2025 11:03-0400 Systolic blood pressure 126 mm[Hg] Dr. Tonio Fajardo DO Work Phone: [facility] 04-19-2025 09:54-0400 Diastolic blood pressure 68 mm[Hg] Dr. Tonio Fajardo DO Work Phone: [facility] 04-19-2025 09:54-0400 Heart rate 103 /min Dr. Tonio Fajardo DO Work Phone: [facility] 04-19-2025 09:54-0400 Systolic blood pressure 85 mm[Hg] Dr. Tonio Fajardo DO Work Phone: [facility] 04-19-2025 09:45-0400 Inhaled oxygen flow rate 3 L/min Dr. Tonio Fajardo DO Work Phone: [facility] 04-19-2025 09:45-0400 Respiratory rate 20 /min Dr. Tonio Fajardo DO Work Phone: [facility] 04-19-2025 09:45-0400 SaO2% (BldA) [Mass fraction] 100 % Dr. Tonio Fajardo DO Work Phone: [facility] 04-19-2025 08:22-0400 Body height 167.[address] Tonio Fajardo DO Work Phone: [facility] 04-19-2025 08:22-0400 Body mass index (BMI) [Ratio] 25.7 kg/m2 Dr. Tonio Fajardo DO Work Phone: [facility] 04-19-2025 08:22-0400 Body temperature 97.9 [degF] Dr. Tonio Fajardo DO Work Phone: [facility] 04-19-2025 08:22-0400 Body weight 72.[address] Tonio Fajardo DO Work Phone: [facility] 04-19-2025 08:08-0400 Heart rate 102 /min Dr. Tonio Fajardo DO Work Phone: [facility] 04-19-2025 07:54-0400 Body temperature 97.4 [degF] Dr. Tonio Fajardo DO Work Phone: [facility] 04-19-2025 07:54-0400 Diastolic blood pressure 67 mm[Hg] Dr. Tonio Fajardo DO Work Phone: [facility] 04-19-2025 07:54-0400 Inhaled oxygen flow rate 3 L/min Dr. Tonio Fajardo DO Work Phone: [facility] 04-19-2025 07:54-0400 Respiratory rate 18 /min Dr. Tonio Fajardo DO Work Phone: [facility] 04-19-2025 07:54-0400 SaO2% (BldA) [Mass fraction] 100 % Dr. Tonio Fajardo DO Work Phone: [facility] 04-19-2025 07:54-0400 Systolic blood pressure 118 mm[Hg] Dr. Tonio Fajardo DO Work Phone: [facility] 04-18-2025 11:58-0400 Body weight 67.[address] Tonio Fajardo DO Work Phone: [facility] 04-17-2025 18:17-0400 Body mass index (BMI) [Ratio] 23.8 kg/m2 Dr. Tonio Fajardo DO Work Phone: [facility] 04-13-2025 02:37-0400 Inhaled oxygen flow rate 15 L/min Dr. Tonio Fajardo DO Work Phone: [facility] 04-13-2025 02:37-0400 SaO2% (BldA) [Mass fraction] 100 % Dr. Tonio Fajardo DO Work Phone: [facility] 04-13-2025 00:56-0400 Body temperature 97.8 [degF] Dr. Tonio Fajardo DO Work Phone: [facility] 04-13-2025 00:56-0400 Diastolic blood pressure 71 mm[Hg] Dr. Tonio Fajardo DO Work Phone: [facility] 04-13-2025 00:56-0400 Heart rate 106 /min Dr. Tonio Fajardo DO Work Phone: [facility] 04-13-2025 00:56-0400 Respiratory rate 21 /min Dr. Tonio Fajardo DO Work Phone: [facility] 04-13-2025 00:56-0400 Systolic blood pressure 129 mm[Hg] Dr. Tonio Fajardo DO Work Phone: [facility] 04-12-2025 23:03-0400 Body temperature 97.8 [degF] Dr. Tonio Fajardo DO Work Phone: [facility] 04-12-2025 23:03-0400 Diastolic blood pressure 80 mm[Hg] Dr. Tonio Fajardo DO Work Phone: [facility] 04-12-2025 23:03-0400 Heart rate 109 /min Dr. Tonio Fajardo DO Work Phone: [facility] 04-12-2025 23:03-0400 Respiratory rate 21 /min Dr. Tonio Fajardo DO Work Phone: [facility] 04-12-2025 23:03-0400 SaO2% (BldA) [Mass fraction] 100 % Dr. Tonio Fajardo DO Work Phone: [facility] 04-12-2025 23:03-0400 Systolic blood pressure 142 mm[Hg] Dr. Tonio Fajardo DO Work Phone: [facility] 04-12-2025 22:00-0400 Inhaled oxygen flow rate 15 L/min Dr. Tonio Fajardo DO Work Phone: [facility] 04-12-2025 18:05-0400 Body height 167.[address] Tonio Fajardo DO Work Phone: [facility] 04-12-2025 18:05-0400 Body mass index (BMI) [Ratio] 25.4 kg/m2 Dr. Tonio Fajardo DO Work Phone: [facility] 04-12-2025 18:05-0400 Body weight 71.[address] Tonio Fajardo DO Work Phone: [facility] 04-12-2025 16:46-0400 Heart rate 115 /min Dr. Tonio Fajardo DO Work Phone: [facility] 04-12-2025 15:40-0400 Diastolic blood pressure 74 mm[Hg] Dr. Tonio Fajardo DO Work Phone: [facility] 04-12-2025 15:40-0400 Inhaled oxygen flow rate 3 L/min Dr. Tonio Fajardo DO Work Phone: [facility] 04-12-2025 15:40-0400 Respiratory rate 22 /min Dr. Tonio Fajardo DO Work Phone: [facility] 04-12-2025 15:40-0400 SaO2% (BldA) [Mass fraction] 96 % Dr. Tonio Fajardo DO Work Phone: [facility] 04-12-2025 15:40-0400 Systolic blood pressure 146 mm[Hg] Dr. Tonio Fajardo DO Work Phone: [facility] 04-12-2025 08:52-0400 Body temperature 96.7 [degF] Dr. Tonio Fajardo DO Work Phone: [facility] 04-11-2025 12:48-0400 Body weight 70.[address] Tonio Fajardo DO Work Phone: [facility] 04-10-2025 23:00-0400 Body mass index (BMI) [Ratio] 25.2 kg/m2 Dr. Tonio Fajardo DO Work Phone: [facility] 04-10-2025 16:21-0400 Body temperature 98.6 [degF] Dr. Tonio Fajardo DO Work Phone: [facility] 04-10-2025 16:21-0400 Diastolic blood pressure 82 mm[Hg] Dr. Tonio Fajardo DO Work Phone: [facility] 04-10-2025 16:21-0400 Heart rate 106 /min Dr. Tonio Fajardo DO Work Phone: [facility] 04-10-2025 16:21-0400 Inhaled oxygen flow rate 3 L/min Dr. Tonio Fajardo DO Work Phone: [facility] 04-10-2025 16:21-0400 Respiratory rate 18 /min Dr. Tonio Fajardo DO Work Phone: [facility] 04-10-2025 16:21-0400 SaO2% (BldA) [Mass fraction] 100 % Dr. Tonio Fajardo DO Work Phone: [facility] 04-10-2025 16:21-0400 Systolic blood pressure 142 mm[Hg] Dr. Tonio Fajardo DO Work Phone: [facility] 04-10-2025 14:30-0400 Body height 167.[address] Tonio Fajardo DO Work Phone: [facility] 04-10-2025 14:30-0400 Body weight 75.[address] Tonio Fajardo DO Work Phone: [facility] 04-10-2025 05:10-0400 Body mass index (BMI) [Ratio] 26.7 kg/m2 Dr. Tonio Fajardo DO Work Phone: [facility] 04-07-2025 00:00-0400 Inhaled oxygen concentration 35 % Dr. Tonio Fajardo DO Work Phone: [facility] 04-05-2025 20:00-0400 Diastolic blood pressure 65 mm[Hg] Dr. Tonio Fajardo DO Work Phone: [facility] 04-05-2025 20:00-0400 Heart rate 103 /min Dr. Tonio Fajardo DO Work Phone: [facility] 04-05-2025 20:00-0400 Inhaled oxygen flow rate 4 L/min Dr. Tonio Fajardo DO Work Phone: [facility] 04-05-2025 20:00-0400 Respiratory rate 25 /min Dr. Tonio Fajardo DO Work Phone: [facility] 04-05-2025 20:00-0400 SaO2% (BldA) [Mass fraction] 92 % Dr. Tonio Fajardo DO Work Phone: [facility] 04-05-2025 20:00-0400 Systolic blood pressure 119 mm[Hg] Dr. Tonio Fajardo DO Work Phone: [facility] 04-05-2025 19:12-0400 Body temperature 98 [degF] Dr. Tonio Fajardo DO Work Phone: [facility] 04-05-2025 16:41-0400 Body height 167.[address] Tonio Fajardo DO Work Phone: [facility] 04-05-2025 16:41-0400 Body mass index (BMI) [Ratio] 28 kg/m2 Dr. Tonio Fajardo DO Work Phone: [facility] 04-05-2025 16:41-0400 Body weight 78.[address] Tonio Fajardo DO Work Phone: [facility] 03-17-2025 13:07-0400 Body height 167.[address] Tonio Fajardo DO Work Phone: [facility] 03-17-2025 13:07-0400 Body mass index (BMI) [Ratio] 26.6 kg/m2 Dr. Tonio Fajardo DO Work Phone: [facility] 03-17-2025 13:07-0400 Body weight 74.[address] Tonio Fajardo DO Work Phone: [facility] 03-17-2025 13:07-0400 Diastolic blood pressure 60 mm[Hg] Dr. Tonio Fajardo DO Work Phone: [facility] 03-17-2025 13:07-0400 Heart rate 101 /min Dr. Tonio Fajardo DO Work Phone: [facility] 03-17-2025 13:07-0400 Inhaled oxygen flow rate 3 L/min Dr. Tonio Fajardo DO Work Phone: [facility] 03-17-2025 13:07-0400 Respiratory rate 20 /min Dr. Tonio Fajardo DO Work Phone: [facility] 03-17-2025 13:07-0400 SaO2% (BldA) [Mass fraction] 96 % Dr. Tonio Fajardo DO Work Phone: [facility] 03-17-2025 13:07-0400 Systolic blood pressure 124 mm[Hg] Dr. Tonio Fajardo DO Work Phone: [facility] 03-15-2025 18:32-0400 Body temperature 98.1 [degF] Dr. Tonio Fajardo DO Work Phone: [facility] 03-15-2025 18:32-0400 Diastolic blood pressure 71 mm[Hg] Dr. Tonio Fajardo DO Work Phone: [facility] 03-15-2025 18:32-0400 Heart rate 101 /min Dr. Tonio Fajardo DO Work Phone: [facility] 03-15-2025 18:32-0400 Respiratory rate 18 /min Dr. Tonio Fajardo DO Work Phone: [facility] 03-15-2025 18:32-0400 SaO2% (BldA) [Mass fraction] 93 % Dr. Tonio Fajardo DO Work Phone: [facility] 03-15-2025 18:32-0400 Systolic blood pressure 168 mm[Hg] Dr. Tonio Fajardo DO Work Phone: [facility] 03-15-2025 16:58-0400 Body height 167.[address] Tonio Fajardo DO Work Phone: [facility] 03-15-2025 16:58-0400 Body mass index (BMI) [Ratio] 27.8 kg/m2 Dr. Tonio Fajardo DO Work Phone: [facility] 03-15-2025 16:58-0400 Body weight 78.[address] Tonio Fajardo DO Work Phone: [facility] 03-15-2025 16:58-0400 Inhaled oxygen flow rate 3 L/min Dr. Tonio Fajardo DO Work Phone: [facility] 03-09-2025 16:22-0400 Body temperature 98.5 [degF] Dr. Tonio Fajardo DO Work Phone: [facility] 03-09-2025 16:22-0400 Heart rate 78 /min Dr. Tonio Fajardo DO Work Phone: [facility] 03-09-2025 16:22-0400 Inhaled oxygen flow rate 3 L/min Dr. Tonio Fajardo DO Work Phone: [facility] 03-09-2025 16:22-0400 Respiratory rate 20 /min Dr. Tonio Fajardo DO Work Phone: [facility] 03-09-2025 16:22-0400 SaO2% (BldA) [Mass fraction] 92 % Dr. Tonio Fajardo DO Work Phone: [facility] 03-09-2025 11:48-0400 Inhaled oxygen flow rate 2 L/min Dr. Tonio Fajardo DO Work Phone: [facility] 03-09-2025 11:48-0400 SaO2% (BldA) [Mass fraction] 79 % Dr. Tonio Fajardo DO Work Phone: [facility] 03-09-2025 11:11-0400 Body height 167.[address] Tonio Fajardo DO Work Phone: [facility] [facility] 03-09-[facility]25 11:11-0400 Body weight 78.[address] Tonio Fajardo DO Work Phone: [facility] 03-09-2025 10:00-0400 Diastolic blood pressure 51 mm[Hg] Dr. Tonio Fajardo DO Work Phone: [facility] 03-09-2025 10:00-0400 Heart rate 97 /min Dr. Tonio Fajardo DO Work Phone: [facility] 03-09-2025 10:00-0400 Systolic blood pressure 129 mm[Hg] Dr. Tonio Fajardo DO Work Phone: [facility] 03-09-2025 05:00-0400 Body mass index (BMI) [Ratio] 28 kg/m2 Dr. Tonio Fajardo DO Work Phone: [facility] 03-04-2025 20:49-0400 Body temperature 98.6 [degF] Dr. Tonio Fajardo DO Work Phone: [facility] 03-04-2025 20:49-0400 Diastolic blood pressure 70 mm[Hg] Dr. Tonio Fajardo DO Work Phone: [facility] 03-04-2025 20:49-0400 Heart rate 114 /min Dr. Tonio Fajardo DO Work Phone: [facility] 03-04-2025 20:49-0400 Respiratory rate 20 /min Dr. Tonio Fajardo DO Work Phone: [facility] 03-04-2025 20:49-0400 SaO2% (BldA) [Mass fraction] 100 % Dr. Tonio Fajardo DO Work Phone: [facility] 03-04-2025 20:49-0400 Systolic blood pressure 153 mm[Hg] Dr. Tonio Fajardo DO Work Phone: [facility] 03-04-2025 20:00-0400 Inhaled oxygen flow rate 4 L/min Dr. Tonio Fajardo DO Work Phone: [facility] 03-04-2025 15:01-0400 Body height 167.[address] Tonio Fajardo DO Work Phone: [facility] 03-04-2025 15:01-0400 Body mass index (BMI) [Ratio] 25.9 kg/m2 Dr. Tonio Fajardo DO Work Phone: [facility] 03-04-2025 15:01-0400 Body weight 73.[address] Tonio Fajardo DO Work Phone: [facility] 11-06-2024 14:45-0400 Body height 167.[address] Tonio Fajardo DO Work Phone: [facility] 11-06-2024 14:45-0400 Body mass index (BMI) [Ratio] 28.5 kg/m2 Dr. Tonio Fajardo DO Work Phone: [facility] 11-06-2024 14:45-0400 Body temperature 98.5 [degF] Dr. Tonio Fajardo DO Work Phone: [facility] 11-06-2024 14:45-0400 Body weight 80.[address] Tonio Fajardo DO Work Phone: [facility] 11-06-2024 14:45-0400 Diastolic blood pressure 55 mm[Hg] Dr. Tonio Fajardo DO Work Phone: [facility] 11-06-2024 14:45-0400 Heart rate 55 /min Dr. Tonio Fajardo DO Work Phone: [facility] 11-06-2024 14:45-0400 Respiratory rate 18 /min Dr. Tonio Fajardo DO Work Phone: [facility] 11-06-2024 14:45-0400 SaO2% (BldA) [Mass fraction] 95 % Dr. Tonio Fajardo DO Work Phone: [facility] 11-06-2024 14:45-0400 Systolic blood pressure 116 mm[Hg] Dr. Tonio Fajardo DO Work Phone: [facility] 10-23-2024 09:06-0500 Body mass index (BMI) [Ratio] 28.5 kg/m2 Dr. Tonio Fajardo DO Work Phone: [facility] 10-23-2024 09:06-0500 Body temperature 97.4 [degF] Dr. Tonio Fajardo DO Work Phone: [facility] 10-23-2024 09:06-0500 Body weight 80.[address] Tonio Fajardo DO Work Phone: [facility] 10-23-2024 09:06-0500 Diastolic blood pressure 56 mm[Hg] Dr. Tonio Fajardo DO Work Phone: [facility] 10-23-2024 09:06-0500 Heart rate 52 /min Dr. Tonio Fajardo DO Work Phone: [facility] 10-23-2024 09:06-0500 Inhaled oxygen flow rate 3 L/min Dr. Tonio Fajardo DO Work Phone: [facility] 10-23-2024 09:06-0500 Respiratory rate 26 /min Dr. Tonio Fajardo DO Work Phone: [facility] 10-23-2024 09:06-0500 SaO2% (BldA) [Mass fraction] 97 % Dr. Tonio Fajardo DO Work Phone: [facility] 10-23-2024 09:06-0500 Systolic blood pressure 128 mm[Hg] Dr. Tonio Fajardo DO Work Phone: [facility] 10-16-2024 13:24-0500 Body height 167.[address] Tonio Fajardo DO Work Phone: [facility] 10-16-2024 13:24-0500 Body weight 78.[address] Tonio Fajardo DO Work Phone: [facility] 10-16-2024 13:24-0500 Heart rate 98 /min Dr. Tonio Fajardo DO Work Phone: [facility] 10-16-2024 13:24-0500 Inhaled oxygen flow rate 2 L/min Dr. Tonio Fajardo DO Work Phone: [facility] 10-16-2024 13:24-0500 SaO2% (BldA) [Mass fraction] 96 % Dr. Tonio Fajardo DO Work Phone: [facility] 09-25-2024 12:59-0500 Body mass index (BMI) [Ratio] 27.7 kg/m2 Dr. Tonio Fajadro DO Work Phone: [facility] 09-25-2024 12:59-0500 Body weight 80.[address] Tonio Fajardo DO Work Phone: [facility] 09-25-2024 12:59-0500 Diastolic blood pressure 75 mm[Hg] Dr. Tonio Fajardo DO Work Phone: [facility] 09-25-2024 12:59-0500 Heart rate 99 /min Dr. Tonio Fajardo DO Work Phone: [facility] 09-25-2024 12:59-0500 Respiratory rate 18 /min Dr. Tonio Fajardo DO Work Phone: [facility] 09-25-2024 12:59-0500 SaO2% (BldA) [Mass fraction] 90 % Dr. Tonio Fajardo DO Work Phone: [facility] 09-25-2024 12:59-0500 Systolic blood pressure 120 mm[Hg] Dr. Tonio Fajardo DO Work Phone: [facility] 11-12-2023 13:22-0400 Body height 170.[address] Tonio Fajardo Work Phone: [facility] 11-12-2023 13:22-0400 Body mass index (BMI) [Ratio] 28 kg/m2 Dr. Tonio Fajardo Work Phone: [facility] 11-12-2023 13:22-0400 Body temperature 97.9 [degF] Dr. Tonio Fajardo Work Phone: [facility] 11-12-2023 13:22-0400 Body weight 81.[address] Tonio Fajardo Work Phone: [facility] 11-12-2023 13:22-0400 Diastolic blood pressure 62 mm[Hg] Dr. Tonio Fajardo Work Phone: [facility] 11-12-2023 13:22-0400 Heart rate 103 /min Dr. Tonio Fajardo Work Phone: [facility] 11-12-2023 13:22-0400 Respiratory rate 18 /min Dr. Tonio Fajardo Work Phone: [facility] 11-12-2023 13:22-0400 SaO2% (BldA) [Mass fraction] 98 % Dr. Tonio Fajardo Work Phone: [facility] 11-12-2023 13:22-0400 Systolic blood pressure 97 mm[Hg] Dr. Tonio Fajardo Work Phone: [facility] 10-31-2023 12:05-0400 Body mass index (BMI) [Ratio] 27.3 kg/m2 Dr. Tonio Fajardo Work Phone: [facility] 10-31-2023 12:05-0400 Body temperature 98.2 [degF] Dr. Tonio Fajardo Work Phone: [facility] 10-31-2023 12:05-0400 Body weight 79.[address] Tonio Fajardo Work Phone: [facility] 10-31-2023 12:05-0400 Diastolic blood pressure 71 mm[Hg] Dr. Tonio Fajardo Work Phone: [facility] 10-31-2023 12:05-0400 Heart rate 78 /min Dr. Tonio Fajardo Work Phone: [facility] 10-31-2023 12:05-0400 Respiratory rate 18 /min Dr. Tonio Fajardo Work Phone: [facility] 10-31-2023 12:05-0400 SaO2% (BldA) [Mass fraction] 94 % Dr. Tonio Fajardo Work Phone: [facility] 10-31-2023 12:05-0400 Systolic blood pressure 119 mm[Hg] Dr. Tonio Fajardo Work Phone: [facility] 10-18-2023 14:51-0500 Body mass index (BMI) [Ratio] 28 kg/m2 Dr. Tonio Fajardo Work Phone: [facility] 10-18-2023 14:51-0500 Body temperature 98.9 [degF] Dr. Tonio Fajardo Work Phone: [facility] 10-18-2023 14:51-0500 Body weight 81.[address] Tonio Fajardo Work Phone: [facility] 10-18-2023 14:51-0500 Diastolic blood pressure 60 mm[Hg] Dr. Tonio Fajardo Work Phone: [facility] 10-18-2023 14:51-0500 Heart rate 98 /min Dr. Tonio Fajardo Work Phone: [facility] 10-18-2023 14:51-0500 Respiratory rate 18 /min Dr. Tonio Fajardo Work Phone: [facility] 10-18-2023 14:51-0500 SaO2% (BldA) [Mass fraction] 96 % Dr. Toino Fajardo Work Phone: [facility] 10-18-2023 14:51-0500 Systolic blood pressure 114 mm[Hg] Dr. Tonio Fajardo Work Phone: [facility] 08-29-2023 12:52-0500 Body height 170.[address] Tonio Fajardo Work Phone: [facility] 08-29-2023 12:52-0500 Body mass index (BMI) [Ratio] 27.8 kg/m2 Dr. Tonio Fajardo Work Phone: [facility] 08-29-2023 12:52-0500 Body weight 80.[address] Tonio Fajardo Work Phone: [facility] 08-29-2023 12:52-0500 Diastolic blood pressure 71 mm[Hg] Dr. Tonio Fajardo Work Phone: [facility] 08-29-2023 12:52-0500 Heart rate 95 /min Dr. Tonio Fajardo Work Phone: [facility] 08-29-2023 12:52-0500 Respiratory rate 18 /min Dr. Tonio Fajardo Work Phone: [facility] 08-29-2023 12:52-0500 SaO2% (BldA) [Mass fraction] 97 % Dr. Tonio Fajardo Work Phone: [facility] 08-29-2023 12:52-0500 Systolic blood pressure 111 mm[Hg] Dr. Tonio Fajardo Work Phone: [facility] 07-25-2023 07:50-0500 Body height 170.[address] Tonio Fajardo Work Phone: [facility] 07-25-2023 07:50-0500 Body mass index (BMI) [Ratio] 29.4 kg/m2 Dr. Tonio Fajardo Work Phone: [facility] 07-25-2023 07:50-0500 Body temperature 96.2 [degF] Dr. Tonio Fajardo Work Phone: [facility] 07-25-2023 07:50-0500 Body weight 85.[address] Tonio Fajardo Work Phone: [facility] 07-25-2023 07:50-0500 Diastolic blood pressure 75 mm[Hg] Dr. Tonio Fajardo Work Phone: [facility] 07-25-2023 07:50-0500 Heart rate 53 /min Dr. Tonio Fajardo Work Phone: [facility] 07-25-2023 07:50-0500 Respiratory rate 20 /min Dr. Tonio Fajardo Work Phone: [facility] 07-25-2023 07:50-0500 SaO2% (BldA) [Mass fraction] 82 % Dr. Tonio Fajardo Work Phone: [facility] 07-25-2023 07:50-0500 Systolic blood pressure 119 mm[Hg] Dr. Tonio Fajardo Work Phone: [facility] 06-08-2023 14:33-0400 Body temperature 97.1 [degF] Dr. Tonio Fajardo Work Phone: [facility] 06-08-2023 14:33-0400 Diastolic blood pressure 67 mm[Hg] Dr. Tonio Fajardo Work Phone: [facility] 06-08-2023 14:33-0400 Heart rate 103 /min Dr. Tonio Fajardo Work Phone: [facility] 06-08-2023 14:33-0400 Respiratory rate 14 /min Dr. Tonio Fajardo Work Phone: [facility] 06-08-2023 14:33-0400 SaO2% (BldA) [Mass fraction] 93 % Dr. Tonio Fajardo Work Phone: [facility] 06-08-2023 14:33-0400 Systolic blood pressure 133 mm[Hg] Dr. Tonio Fajardo Work Phone: [facility] 06-08-2023 12:20-0400 Body height 170.[address] Tonio Fajardo Work Phone: [facility] 06-08-2023 12:20-0400 Body mass index (BMI) [Ratio] 29.3 kg/m2 Dr. Tonio Fajardo Work Phone: [facility] 06-08-2023 12:20-0400 Body weight [address] Tonio Fajardo Work Phone: [facility] 05-02-2023 13:50-0400 Diastolic blood pressure 63 mm[Hg] Dr. Tonio Fajardo Work Phone: [facility] 05-02-2023 13:50-0400 Heart rate 97 /min Dr. Tonio Fjaardo Work Phone: [facility] 05-02-2023 13:50-0400 Respiratory rate 18 /min Dr. Tonio Fajardo Work Phone: [facility] 05-02-2023 13:50-0400 Systolic blood pressure 113 mm[Hg] Dr. Tonio Fajardo Work Phone: [facility] 04-25-2023 14:04-0400 Body temperature 97.9 [degF] Dr. Tonio Fajardo Work Phone: [facility] 04-18-2023 13:24-0400 Body temperature 97.5 [degF] Dr. Tonio Fajardo Work Phone: [facility] 04-18-2023 13:24-0400 Diastolic blood pressure 77 mm[Hg] Dr. Tonio Fajardo Work Phone: [facility] 04-18-2023 13:24-0400 Heart rate 109 /min Dr. Tonio Fajardo Work Phone: [facility] 04-18-2023 13:24-0400 Respiratory rate 16 /min Dr. Tonio Fajardo Work Phone: [facility] 04-18-2023 13:24-0400 Systolic blood pressure 141 mm[Hg] Dr. Tonio Fajardo Work Phone: [facility] 04-17-2023 11:08-0400 Body height 167.[address] Tonio Fajardo Work Phone: [facility] 04-17-2023 11:08-0400 Body mass index (BMI) [Ratio] 30.2 kg/m2 Dr. Tonio Fajardo Work Phone: [facility] 04-17-2023 11:08-0400 Body temperature 98.6 [degF] Dr. Tonio Fajardo Work Phone: [facility] 04-17-2023 11:08-0400 Body weight 84.[address] Tonio Fajardo Work Phone: [facility] 04-17-2023 11:08-0400 Diastolic blood pressure 87 mm[Hg] Dr. Tonio Fajardo Work Phone: [facility] 04-17-2023 11:08-0400 Heart rate 87 /min Dr. Tonio Fajardo Work Phone: [facility] 04-17-2023 11:08-0400 Respiratory rate 18 /min Dr. Tonio Fajardo Work Phone: [facility] 04-17-2023 11:08-0400 SaO2% (BldA) [Mass fraction] 95 % Dr. Tonio Fajardo Work Phone: [facility] 04-17-2023 11:08-0400 Systolic blood pressure 130 mm[Hg] Dr. Tonio Fajardo Work Phone: [facility] 04-02-2023 11:24-0400 Body temperature 98.6 [degF] Dr. Tonio Fajardo Work Phone: [facility] 04-02-2023 11:24-0400 Diastolic blood pressure 55 mm[Hg] Dr. Tonio Fajardo Work Phone: [facility] 04-02-2023 11:24-0400 Heart rate 101 /min Dr. Tonio Fajardo Work Phone: [facility] 04-02-2023 11:24-0400 Respiratory rate 20 /min Dr. Tonio Fajardo Work Phone: [facility] 04-02-2023 11:24-0400 Systolic blood pressure 114 mm[Hg] Dr. Tonio Fajardo Work Phone: [facility] 03-19-2023 10:28-0400 Body temperature 98.2 [degF] Dr. Tonio Fajardo Work Phone: [facility] 03-19-2023 10:28-0400 Diastolic blood pressure 59 mm[Hg] Dr. Tonio Fajardo Work Phone: [facility] 03-19-2023 10:28-0400 Heart rate 106 /min Dr. Tonio Fajardo Work Phone: [facility] 03-19-2023 10:28-0400 Respiratory rate 20 /min Dr. Tonio Fajardo Work Phone: [facility] 03-19-2023 10:28-0400 Systolic blood pressure 120 mm[Hg] Dr. Tonio Fajardo Work Phone: [facility] 02-05-2023 13:10-0400 Body temperature 97.6 [degF] Dr. Tonio Fajardo Work Phone: [facility] 02-05-2023 13:10-0400 Diastolic blood pressure 76 mm[Hg] Dr. Tonio Fajardo Work Phone: [facility] 02-05-2023 13:10-0400 Heart rate 109 /min Dr. Tonio Fajardo Work Phone: [facility] 02-05-2023 13:10-0400 Respiratory rate 18 /min Dr. Tonio Fajardo Work Phone: [facility] 02-05-2023 13:10-0400 Systolic blood pressure 160 mm[Hg] Dr. Tonio Fajardo Work Phone: [facility] 01-08-2023 13:37-0400 Body temperature 96.7 [degF] Dr. Tonio Fajardo Work Phone: [facility] 01-08-2023 13:37-0400 Diastolic blood pressure 46 mm[Hg] Dr. Tonio Fajardo Work Phone: [facility] 01-08-2023 13:37-0400 Heart rate 111 /min Dr. Tonio Fajardo Work Phone: [facility] 01-08-2023 13:37-0400 Systolic blood pressure 121 mm[Hg] Dr. Tonio Fajardo Work Phone: [facility] 12-31-2022 00:58-0400 Body temperature 98.7 [degF] Dr. Tonio Fajardo Work Phone: [facility] 12-31-2022 00:58-0400 Diastolic blood pressure 59 mm[Hg] Dr. Tonio Fajardo Work Phone: [facility] 12-31-2022 00:58-0400 Heart rate 111 /min Dr. Tonio Fajardo Work Phone: [facility] 12-31-2022 00:58-0400 Respiratory rate 26 /min Dr. Tonio Fajardo Work Phone: [facility] 12-31-2022 00:58-0400 SaO2% (BldA) [Mass fraction] 93 % Dr. Tonio Fajardo Work Phone: [facility] 12-31-2022 00:58-0400 Systolic blood pressure 131 mm[Hg] Dr. Tonio Fajardo Work Phone: [facility] 12-30-2022 22:36-0400 Body height 167.[address] Tonio Fajardo Work Phone: [facility] 12-30-2022 22:36-0400 Body mass index (BMI) [Ratio] 30.5 kg/m2 Dr. Tonio Fajardo Work Phone: [facility] 12-30-2022 22:36-0400 Body weight 85.[address] Tonio Fajardo Work Phone: [facility] 12-25-2022 14:53-0400 Body temperature 97.7 [degF] Dr. Tonio Fajardo Work Phone: [facility] 12-25-2022 14:53-0400 Diastolic blood pressure 51 mm[Hg] Dr. Tonio Fajardo Work Phone: [facility] 12-25-2022 14:53-0400 Heart rate 110 /min Dr. Tonio Fajardo Work Phone: [facility] 12-25-2022 14:53-0400 Respiratory rate 18 /min Dr. Tonio Fajardo Work Phone: [facility] 12-25-2022 14:53-0400 Systolic blood pressure 101 mm[Hg] Dr. Tonio Fajardo Work Phone: [facility] 12-12-2022 10:49-0400 Body height 167.[address] Tonio Fajardo Work Phone: [facility] 12-12-2022 10:49-0400 Body mass index (BMI) [Ratio] 29.7 kg/m2 Dr. Tonio Fajardo Work Phone: [facility] 12-12-2022 10:49-0400 Body temperature 97.4 [degF] Dr. Tonio Fajardo Work Phone: [facility] 12-12-2022 10:49-0400 Body weight 83.[address] Tonio Fajardo Work Phone: [facility] 12-12-2022 10:49-0400 Diastolic blood pressure 71 mm[Hg] Dr. Tonio Fajardo Work Phone: [facility] 12-12-2022 10:49-0400 Heart rate 114 /min Dr. Tonio Fajardo Work Phone: [facility] 12-12-2022 10:49-0400 Respiratory rate 18 /min Dr. Tonio Fajardo Work Phone: [facility] 12-12-2022 10:49-0400 SaO2% (BldA) [Mass fraction] 96 % Dr. Tonio Fajardo Work Phone: [facility] 12-12-2022 10:49-0400 Systolic blood pressure 135 mm[Hg] Dr. Tonio Fajardo Work Phone: [facility] 12-11-2022 13:12-0400 Body temperature 96.2 [degF] Dr. Tonio Fajardo Work Phone: [facility] 12-11-2022 13:12-0400 Diastolic blood pressure 87 mm[Hg] Dr. Tonio Fajardo Work Phone: [facility] 12-11-2022 13:12-0400 Heart rate 107 /min Dr. Tonio Fajardo Work Phone: [facility] 12-11-2022 13:12-0400 Respiratory rate 20 /min Dr. Tonio Fajardo Work Phone: [facility] 12-11-2022 13:12-0400 Systolic blood pressure 110 mm[Hg] Dr. Tonio Fajardo Work Phone: [facility] 11-16-2022 13:13-0400 Diastolic blood pressure 49 mm[Hg] Dr. Tonio Fajardo Work Phone: [facility] 11-16-2022 13:13-0400 Heart rate 82 /min Dr. Tonio Fajardo Work Phone: [facility] 11-16-2022 13:13-0400 Respiratory rate 16 /min Dr. Tonio Fajardo Work Phone: [facility] 11-16-2022 13:13-0400 Systolic blood pressure 125 mm[Hg] Dr. Tonio Fajardo Work Phone: [facility] 11-08-2022 09:52-0400 Body temperature 97.3 [degF] Dr. Tonio Fajardo Work Phone: [facility] 10-16-2022 14:07-0500 Body height 167.[address] Tonio Fajardo Work Phone: [facility] 10-16-2022 14:05-0500 Body mass index (BMI) [Ratio] 29.8 kg/m2 Dr. Tonio Fajardo Work Phone: [facility] 10-16-2022 14:05-0500 Body temperature 97.6 [degF] Dr. Tonio Fajardo Work Phone: [facility] 10-16-2022 14:05-0500 Body weight 83.[address] Tonio Fajardo Work Phone: [facility] 10-16-2022 14:05-0500 Diastolic blood pressure 89 mm[Hg] Dr. Tonio Fajardo Work Phone: [facility] 10-16-2022 14:05-0500 Heart rate 78 /min Dr. Tonio Fajardo Work Phone: [facility] 10-16-2022 14:05-0500 Respiratory rate 18 /min Dr. Tonio Fajardo Work Phone: [facility] 10-16-2022 14:05-0500 SaO2% (BldA) [Mass fraction] 94 % Dr. Tonio Fajardo Work Phone: [facility] 10-16-2022 14:05-0500 Systolic blood pressure 145 mm[Hg] Dr. Tonio Fajardo Work Phone: [facility] 10-16-2022 13:24-0500 Body mass index (BMI) [Ratio] 29.8 kg/m2 Dr. Tonio Fajardo Work Phone: [facility] 10-16-2022 13:24-0500 Body temperature 98.6 [degF] Dr. Tonio Fajardo Work Phone: [facility] 10-16-2022 13:24-0500 Body weight 83.[address] Tonio Fajardo Work Phone: [facility] 10-16-2022 13:24-0500 Diastolic blood pressure 74 mm[Hg] Dr. Tonio Fajardo Work Phone: [facility] 10-16-2022 13:24-0500 Heart rate 75 /min Dr. Tonio Fajardo Work Phone: [facility] 10-16-2022 13:24-0500 Respiratory rate 18 /min Dr. Tonio Fajardo Work Phone: [facility] 10-16-2022 13:24-0500 SaO2% (BldA) [Mass fraction] 94 % Dr. Tonio Fajardo Work Phone: [facility] 10-16-2022 13:24-0500 Systolic blood pressure 146 mm[Hg] Dr. Tonio Fajardo Work Phone: [facility] 10-09-2022 12:59-0500 Body temperature 97.5 [degF] Dr. Tonio Fajardo Work Phone: [facility] 10-09-2022 12:59-0500 Diastolic blood pressure 63 mm[Hg] Dr. Tonio Fajardo Work Phone: [facility] 10-09-2022 12:59-0500 Heart rate 89 /min Dr. Tonio Fajardo Work Phone: [facility] 10-09-2022 12:59-0500 Respiratory rate 22 /min Dr. Tonio Fajardo Work Phone: [facility] 10-09-2022 12:59-0500 Systolic blood pressure 148 mm[Hg] Dr. Tonio Fajardo Work Phone: [facility] 09-18-2022 09:49-0500 Body temperature 97.3 [degF] Dr. Tonio Fajardo Work Phone: [facility] 09-18-2022 09:49-0500 Diastolic blood pressure 44 mm[Hg] Dr. Tonio Fajardo Work Phone: [facility] 09-18-2022 09:49-0500 Heart rate 66 /min Dr. Tonio Fajardo Work Phone: [facility] 09-18-2022 09:49-0500 Respiratory rate 18 /min Dr. Tonio Fajardo Work Phone: [facility] 09-18-2022 09:49-0500 Systolic blood pressure 138 mm[Hg] Dr. Tonio Fajardo Work Phone: [facility] 08-15-2022 13:56-0500 Body temperature 97.1 [degF] Dr. Tonio Fajardo Work Phone: [facility] 08-15-2022 13:56-0500 Diastolic blood pressure 43 mm[Hg] Dr. Tonio Fajardo Work Phone: [facility] 08-15-2022 13:56-0500 Heart rate 73 /min Dr. Tonio Fajardo Work Phone: [facility] 08-15-2022 13:56-0500 Respiratory rate 16 /min Dr. Tonio Fajardo Work Phone: [facility] 08-15-2022 13:56-0500 Systolic blood pressure 139 mm[Hg] Dr. Tonio Fajardo Work Phone: [facility] 08-08-2022 14:00-0500 Body height 167.[address] Tonio Fajardo Work Phone: [facility] 08-08-2022 13:57-0500 Body mass index (BMI) [Ratio] 29.5 kg/m2 Dr. Tonio Fajardo Work Phone: [facility] 08-08-2022 13:57-0500 Body temperature 97.5 [degF] Dr. Tonio Fajardo Work Phone: [facility] 08-08-2022 13:57-0500 Body weight 83.[address] Tonio Fajardo Work Phone: [facility] 08-08-2022 13:57-0500 Diastolic blood pressure 54 mm[Hg] Dr. Tonio Fajardo Work Phone: [facility] 08-08-2022 13:57-0500 Heart rate 67 /min Dr. Tonio Fajardo Work Phone: [facility] 08-08-2022 13:57-0500 Respiratory rate 16 /min Dr. Tonio Fajardo Work Phone: [facility] 08-08-2022 13:57-0500 SaO2% (BldA) [Mass fraction] 94 % Dr. Tonio Fajardo Work Phone: [facility] 08-08-2022 13:57-0500 Systolic blood pressure 109 mm[Hg] Dr. Tonio Fajardo Work Phone: [facility] 07-19-2022 14:30-0500 Body height 167.[address] Tonio Fajardo Work Phone: [facility] Work Phone: 07-19-2022 14:30-0500 Body mass index (BMI) [Ratio] 29 kg/m2 Dr. Tonio Fajardo Work Phone: [facility] 07-19-2022 14:30-0500 Body weight 81.[address] Tonio Fajardo Work Phone: [facility] 07-19-2022 14:30-0500 Diastolic blood pressure 62 mm[Hg] Dr. Tonio Fajardo Work Phone: [facility] 07-19-2022 14:30-0500 Heart rate 66 /min Dr. Tonio Fajardo Work Phone: [facility] 07-19-2022 14:30-0500 Respiratory rate 24 /min Dr. Tonio Fajardo Work Phone: [facility] 07-19-2022 14:30-0500 SaO2% (BldA) [Mass fraction] 97 % Dr. Tonio Fajardo Work Phone: [facility] 07-19-2022 14:30-0500 Systolic blood pressure 117 mm[Hg] Dr. Tonio Fajardo Work Phone: [facility] 07-18-2022 13:29-0500 Body temperature 97.1 [degF] Dr. Tonio Fajardo Work Phone: [facility] 07-18-2022 13:29-0500 Diastolic blood pressure 57 mm[Hg] Dr. Tonio Fajardo Work Phone: [facility] 07-18-2022 13:29-0500 Heart rate 83 /min Dr. Tonio Fajardo Work Phone: [facility] 07-18-2022 13:29-0500 Respiratory rate 16 /min Dr. Tonio Fajardo Work Phone: [facility] 07-18-2022 13:29-0500 Systolic blood pressure 117 mm[Hg] Dr. Tonio Fajardo Work Phone: [facility] 07-17-2022 11:23-0500 Body temperature 98.3 [degF] Dr. Tonio Fajardo Work Phone: [facility] 07-17-2022 11:23-0500 Diastolic blood pressure 58 mm[Hg] Dr. Tonio Fajardo Work Phone: [facility] 07-17-2022 11:23-0500 Heart rate 63 /min Dr. Tonio Fajardo Work Phone: [facility] 07-17-2022 11:23-0500 Respiratory rate 16 /min Dr. Tnoio Fajardo Work Phone: [facility] 07-17-2022 11:23-0500 SaO2% (BldA) [Mass fraction] 97 % Dr. Tonio Fajardo Work Phone: [facility] 07-17-2022 11:23-0500 Systolic blood pressure 107 mm[Hg] Dr. Tonio Fajardo Work Phone: [facility] 07-05-2022 14:00-0500 Body mass index (BMI) [Ratio] 29 kg/m2 Dr. Tonio Fajardo Work Phone: [facility] 07-05-2022 14:00-0500 Body temperature 96.9 [degF] Dr. Tonio Fajardo Work Phone: [facility] 07-05-2022 14:00-0500 Body weight 81.[address] Tonio Fajardo Work Phone: [facility] 07-05-2022 14:00-0500 Diastolic blood pressure 63 mm[Hg] Dr. Tonio Fajardo Work Phone: [facility] 07-05-2022 14:00-0500 Heart rate 66 /min Dr. Tonio Fajardo Work Phone: [facility] 07-05-2022 14:00-0500 Respiratory rate 16 /min Dr. Tonio Fajardo Work Phone: [facility] 07-05-2022 14:00-0500 SaO2% (BldA) [Mass fraction] 97 % Dr. Tonio Fajardo Work Phone: [facility] 07-05-2022 14:00-0500 Systolic blood pressure 156 mm[Hg] Dr. Tonio Fajardo Work Phone: [facility] 06-28-2022 14:11-0500 Body mass index (BMI) [Ratio] 29.6 kg/m2 Dr. Tonio Fajardo Work Phone: [facility] 06-28-2022 14:11-0500 Body temperature 97.1 [degF] Dr. Tonio Fajardo Work Phone: [facility] 06-28-2022 14:11-0500 Body weight 83.[address] Tonio Fajardo Work Phone: [facility] 06-28-2022 14:11-0500 Diastolic blood pressure 58 mm[Hg] Dr. Tonio Fajardo Work Phone: [facility] 06-28-2022 14:11-0500 Heart rate 77 /min Dr. Tonio Fajardo Work Phone: [facility] 06-28-2022 14:11-0500 Respiratory rate 16 /min Dr. Tonio Fajardo Work Phone: [facility] 06-28-2022 14:11-0500 SaO2% (BldA) [Mass fraction] 89 % Dr. Tonio Fajardo Work Phone: [facility] 06-28-2022 14:11-0500 Systolic blood pressure 124 mm[Hg] Dr. Tonio Fajardo Work Phone: [facility] 06-21-2022 13:57-0400 Body mass index (BMI) [Ratio] 29.8 kg/m2 Dr. Tonio Fajardo Work Phone: [facility] 06-21-2022 13:57-0400 Body temperature 97 [degF] Dr. Tonio Fajardo Work Phone: [facility] 06-21-2022 13:57-0400 Body weight 83.[address] Tonio Fajardo Work Phone: [facility] 06-21-2022 13:57-0400 Diastolic blood pressure 88 mm[Hg] Dr. Tonio Fajardo Work Phone: [facility] 06-21-2022 13:57-0400 Heart rate 70 /min Dr. Tonio Fajardo Work Phone: [facility] 06-21-2022 13:57-0400 Respiratory rate 18 /min Dr. Tonio Fajardo Work Phone: [facility] 06-21-2022 13:57-0400 SaO2% (BldA) [Mass fraction] 94 % Dr. Tonio Fajardo Work Phone: [facility] 06-21-2022 13:57-0400 Systolic blood pressure 139 mm[Hg] Dr. Tonio Fajardo Work Phone: [facility] 06-14-2022 13:55-0400 Body height 167.[address] Tonio Fajardo Work Phone: [facility] Work Phone: 06-14-2022 13:53-0400 Body mass index (BMI) [Ratio] 29.5 kg/m2 Dr. Tonio Fajardo Work Phone: [facility] 06-14-2022 13:53-0400 Body temperature 97 [degF] Dr. Tonio Fajardo Work Phone: [facility] 06-14-2022 13:53-0400 Body weight 83.[address] Tonio Fajardo Work Phone: [facility] 06-14-2022 13:53-0400 Diastolic blood pressure 61 mm[Hg] Dr. Tonio Fajardo Work Phone: [facility] 06-14-2022 13:53-0400 Heart rate 66 /min Dr. Tonio Fajardo Work Phone: [facility] 06-14-2022 13:53-0400 Respiratory rate 16 /min Dr. Tonio Fajardo Work Phone: [facility] 06-14-2022 13:53-0400 SaO2% (BldA) [Mass fraction] 94 % Dr. Tonio Fajardo Work Phone: [facility] 06-14-2022 13:53-0400 Systolic blood pressure 137 mm[Hg] Dr. Tonio Fajardo Work Phone: [facility] 06-12-2022 10:32-0400 Body temperature 97.3 [degF] Dr. Tonio Fajardo Work Phone: [facility] 06-12-2022 10:32-0400 Diastolic blood pressure 63 mm[Hg] Dr. Tonio Fajardo Work Phone: [facility] 06-12-2022 10:32-0400 Heart rate 59 /min Dr. Tonio Fajardo Work Phone: [facility] 06-12-2022 10:32-0400 Respiratory rate 18 /min Dr. Tonio Fajardo Work Phone: [facility] 06-12-2022 10:32-0400 Systolic blood pressure 149 mm[Hg] Dr. Tonio Fajardo Work Phone: [facility] 05-30-2022 14:08-0400 Body height 167.[address] Tonio Fajardo Work Phone: [facility] Work Phone: 05-30-2022 14:05-0400 Body mass index (BMI) [Ratio] 29.7 kg/m2 Dr. Tonio Fajardo Work Phone: [facility] 05-30-2022 14:05-0400 Body temperature 97 [degF] Dr. Tonio Fajardo Work Phone: [facility] 05-30-2022 14:05-0400 Body weight 83.[address] Tonio Fajardo Work Phone: [facility] 05-30-2022 14:05-0400 Diastolic blood pressure 64 mm[Hg] Dr. Tonio Fajardo Work Phone: [facility] 05-30-2022 14:05-0400 Heart rate 65 /min Dr. Tonio Fajardo Work Phone: [facility] 05-30-2022 14:05-0400 Respiratory rate 18 /min Dr. Tonio Fajardo Work Phone: [facility] 05-30-2022 14:05-0400 SaO2% (BldA) [Mass fraction] 95 % Dr. Tonio Fajardo Work Phone: [facility] 05-30-2022 14:05-0400 Systolic blood pressure 145 mm[Hg] Dr. Tonio Fajardo Work Phone: [facility] 05-29-2022 14:48-0400 Body temperature 97.6 [degF] Dr. Tonio Fajardo Work Phone: [facility] Work Phone: 05-29-2022 14:48-0400 Diastolic blood pressure 51 mm[Hg] Dr. Tonio Fajardo Work Phone: [facility] Work Phone: 05-29-2022 14:48-0400 Heart rate 75 /min Dr. Tonio Fajardo Work Phone: [facility] Work Phone: 05-29-2022 14:48-0400 Systolic blood pressure 158 mm[Hg] Dr. Tonio Fajardo Work Phone: [facility] Work Phone: 05-24-2022 14:31-0400 Body height 167.[address] Tonio Fajardo Work Phone: [facility] Work Phone: 05-24-2022 14:22-0400 Body mass index (BMI) [Ratio] 29.7 kg/m2 Dr. Tonio Fajardo Work Phone: [facility] 05-24-2022 14:22-0400 Body temperature 98.2 [degF] Dr. Tonio Fajardo Work Phone: [facility] 05-24-2022 14:22-0400 Body weight 83.[address] Tonio Fajardo Work Phone: [facility] 05-24-2022 14:22-0400 Diastolic blood pressure 74 mm[Hg] Dr. Tonio Fajardo Work Phone: [facility] 05-24-2022 14:22-0400 Heart rate 74 /min Dr. Tonio Fajardo Work Phone: [facility] 05-24-2022 14:22-0400 Respiratory rate 15 /min Dr. Tonio Fajardo Work Phone: [facility] 05-24-2022 14:22-0400 SaO2% (BldA) [Mass fraction] 96 % Dr. Tonio Fajardo Work Phone: [facility] 05-24-2022 14:22-0400 Systolic blood pressure 135 mm[Hg] Dr. Tonio Fajardo Work Phone: [facility] 05-24-2022 13:26-0400 Body temperature 96.7 [degF] Dr. Tonio Fajardo Work Phone: [facility] Work Phone: 05-24-2022 13:26-0400 Diastolic blood pressure 57 mm[Hg] Dr. Tonio Fajardo Work Phone: [facility] Work Phone: 05-24-2022 13:26-0400 Heart rate 81 /min Dr. Tonio Fajardo Work Phone: [facility] Work Phone: 05-24-2022 13:26-0400 Respiratory rate 18 /min Dr. Tonio Fajardo Work Phone: [facility] Work Phone: 05-24-2022 13:26-0400 Systolic blood pressure 141 mm[Hg] Dr. Tonio Fajardo Work Phone: [facility] Work Phone: 05-17-2022 15:07-0400 Body temperature 97.5 [degF] Dr. Tonio Fajardo Work Phone: [facility] Work Phone: 05-17-2022 15:07-0400 Diastolic blood pressure 63 mm[Hg] Dr. Tonio Fajardo Work Phone: [facility] Work Phone: 05-17-2022 15:07-0400 Heart rate 71 /min Dr. Tonio Fajardo Work Phone: [facility] Work Phone: 05-17-2022 15:07-0400 Respiratory rate 20 /min Dr. Tonio Fajardo Work Phone: [facility] Work Phone: 05-17-2022 15:07-0400 Systolic blood pressure 142 mm[Hg] Dr. Tonio Fajardo Work Phone: [facility] Work Phone: 05-11-2022 16:01-0400 Body height 167.[address] Tonio Fajardo Work Phone: [facility] Work Phone: 05-11-2022 15:54-0400 Body mass index (BMI) [Ratio] 29.4 kg/m2 Dr. Tonio Fajardo Work Phone: [facility] Work Phone: 05-11-2022 15:54-0400 Body temperature 98.4 [degF] Dr. Tonio Fajardo Work Phone: [facility] Work Phone: 05-11-2022 15:54-0400 Body weight 82.[address] Tonio Fajardo Work Phone: [facility] Work Phone: 05-11-2022 15:54-0400 Diastolic blood pressure 67 mm[Hg] Dr. Tonio Fajardo Work Phone: [facility] Work Phone: 05-11-2022 15:54-0400 Heart rate 63 /min Dr. Tonio Fajardo Work Phone: [facility] Work Phone: 05-11-2022 15:54-0400 Respiratory rate 16 /min Dr. Tonio Fajardo Work Phone: [facility] Work Phone: 05-11-2022 15:54-0400 SaO2% (BldA) [Mass fraction] 96 % Dr. Tonio Fajardo Work Phone: [facility] Work Phone: 05-11-2022 15:54-0400 Systolic blood pressure 100 mm[Hg] Dr. Tonio Fajardo Work Phone: [facility] Work Phone: 05-11-2022 08:32-0400 Body mass index (BMI) [Ratio] 29.4 kg/m2 Dr. Tonio Fajardo Work Phone: [facility] Work Phone: 05-11-2022 08:32-0400 Body temperature 97.2 [degF] Dr. Tonio Fajardo Work Phone: [facility] Work Phone: 05-11-2022 08:32-0400 Body weight 82.[address] Tonio Fajardo Work Phone: [facility] Work Phone: 05-11-2022 08:32-0400 Diastolic blood pressure 62 mm[Hg] Dr. Tonio Fajardo Work Phone: [facility] Work Phone: 05-11-2022 08:32-0400 Heart rate 73 /min Dr. Tonio Fajardo Work Phone: [facility] Work Phone: 05-11-2022 08:32-0400 Respiratory rate 20 /min Dr. Tonio Fajardo Work Phone: [facility] Work Phone: 05-11-2022 08:32-0400 SaO2% (BldA) [Mass fraction] 96 % Dr. Tonio Fajardo Work Phone: [facility] Work Phone: 05-11-2022 08:32-0400 Systolic blood pressure 145 mm[Hg] Dr. Tonio Fajardo Work Phone: [facility] Work Phone: 04-28-2022 11:40-0400 Body temperature 97.4 [degF] Dr. Tonio Fajardo Work Phone: [facility] Work Phone: 04-28-2022 11:40-0400 Diastolic blood pressure 46 mm[Hg] Dr. Tonio Fajardo Work Phone: [facility] Work Phone: 04-28-2022 11:40-0400 Heart rate 66 /min Dr. Tonio Fajardo Work Phone: [facility] Work Phone: 04-28-2022 11:40-0400 Respiratory rate 20 /min Dr. Tonio Fajardo Work Phone: [facility] Work Phone: 04-28-2022 11:40-0400 SaO2% (BldA) [Mass fraction] 96 % Dr. Tonio Fajardo Work Phone: [facility] Work Phone: 04-28-2022 11:40-0400 Systolic blood pressure 138 mm[Hg] Dr. Tonio Fajardo Work Phone: [facility] Work Phone: 04-28-2022 09:44-0400 Inhaled oxygen flow rate 2 L/min Dr. Tonio Fajardo Work Phone: [facility] Work Phone: 04-28-2022 08:15-0400 Body height 167.[address] Tonio Fajardo Work Phone: [facility] Work Phone: 04-28-2022 08:15-0400 Body mass index (BMI) [Ratio] 28 kg/m2 Dr. Tonio Fajardo Work Phone: [facility] Work Phone: 04-28-2022 08:15-0400 Body weight 78.[address] Tonio Fajardo Work Phone: [facility] Work Phone: 04-26-2022 13:47-0400 Body temperature 97 [degF] Dr. Tonio Fajardo Work Phone: [facility] Work Phone: 04-26-2022 13:47-0400 Diastolic blood pressure 33 mm[Hg] Dr. Tonio Fajardo Work Phone: [facility] Work Phone: 04-26-2022 13:47-0400 Heart rate 80 /min Dr. Tonio Fajardo Work Phone: [facility] Work Phone: 04-26-2022 13:47-0400 Respiratory rate 18 /min Dr. Tonio Fajardo Work Phone: [facility] Work Phone: 04-26-2022 13:47-0400 Systolic blood pressure 118 mm[Hg] Dr. Tonio Fajardo Work Phone: [facility] Work Phone: 04-14-2022 11:11-0400 Body height 167.[address] Tonio Fajardo Work Phone: [facility] Work Phone: 04-14-2022 11:11-0400 Body mass index (BMI) [Ratio] 30.7 kg/m2 Dr. Tonio Fajardo Work Phone: [facility] Work Phone: 04-14-2022 11:11-0400 Body temperature 95.8 [degF] Dr. Tonio Fajardo Work Phone: [facility] Work Phone: 04-14-2022 11:11-0400 Body weight 86.[address] Tonio Fajardo Work Phone: [facility] Work Phone: 04-14-2022 11:11-0400 Diastolic blood pressure 68 mm[Hg] Dr. Tonio Fajardo Work Phone: [facility] Work Phone: 04-14-2022 11:11-0400 Heart rate 34 /min Dr. Tonio Fajardo Work Phone: [facility] Work Phone: 04-14-2022 11:11-0400 Respiratory rate 16 /min Dr. Tonio Fajardo Work Phone: [facility] Work Phone: 04-14-2022 11:11-0400 SaO2% (BldA) [Mass fraction] 91 % Dr. Tonio Fajardo Work Phone: [facility] Work Phone: 04-14-2022 11:11-0400 Systolic blood pressure 163 mm[Hg] Dr. Tonio Fajardo Work Phone: [facility] Work Phone: 04-14-2022 10:36-0400 Body temperature 96.7 [degF] Dr. Tonio Fajardo Work Phone: [facility] Work Phone: 04-14-2022 10:36-0400 Diastolic blood pressure 71 mm[Hg] Dr. Tonio Fajardo Work Phone: [facility] Work Phone: 04-14-2022 10:36-0400 Heart rate 64 /min Dr. Tonio Fajardo Work Phone: [facility] Work Phone: 04-14-2022 10:36-0400 Respiratory rate 23 /min Dr. Tonio Fajardo Work Phone: [facility] Work Phone: 04-14-2022 10:36-0400 SaO2% (BldA) [Mass fraction] 94 % Dr. Tonio Fajardo Work Phone: [facility] Work Phone: 04-14-2022 10:36-0400 Systolic blood pressure 153 mm[Hg] Dr. Tonio Fajardo Work Phone: [facility] Work Phone: 04-14-2022 08:24-0400 Body mass index (BMI) [Ratio] 30.2 kg/m2 Dr. Tonio Fajardo Work Phone: [facility] Work Phone: 04-14-2022 08:24-0400 Body weight 85.[address] Tonio Fajardo Work Phone: [facility] Work Phone: 04-12-2022 13:50-0400 Body temperature 97.8 [degF] Dr. Tonio Fajardo Work Phone: [facility] Work Phone: 04-12-2022 13:50-0400 Diastolic blood pressure 74 mm[Hg] Dr. Tonio Fajardo Work Phone: [facility] Work Phone: 04-12-2022 13:50-0400 Heart rate 69 /min Dr. Tonio Fajardo Work Phone: [facility] Work Phone: 04-12-2022 13:50-0400 Respiratory rate 18 /min Dr. Tonio Fajardo Work Phone: [facility] Work Phone: 04-12-2022 13:50-0400 Systolic blood pressure 107 mm[Hg] Dr. Tonio Fajardo Work Phone: [facility] Work Phone: 04-05-2022 13:34-0400 Body temperature 101.61 [degF] Steven Praisler[employer] Work Phone: [facility] 04-05-2022 13:34-0400 Body weight 87.09 kg Steven Praisler-Wood [employer] Work Phone: [facility] 04-05-2022 13:34-0400 Diastolic blood pressure 76 mm[Hg] Steven Praisler-Wood [employer] Work Phone: [facility] 04-05-2022 13:34-0400 Heart rate 76 /min Steven Praisler[employer] Work Phone: [facility] 04-05-2022 13:34-0400 Respiratory rate 16 /min Steven Melgar [employer] Work Phone: [facility] 04-05-2022 13:34-0400 SaO2% (BldA) [Mass fraction] 94 % Steven Melgar [employer] Work Phone: [facility] 04-05-2022 13:34-0400 Systolic blood pressure 122 mm[Hg] Steven Melgar [employer] Work Phone: [facility] 03-01-2022 13:16-0400 Body temperature 97.6 [degF] Dr. Tonio Fajardo Work Phone: [facility] Work Phone: 03-01-2022 13:16-0400 Diastolic blood pressure 73 mm[Hg] Dr. Tonio Fajardo Work Phone: [facility] Work Phone: 03-01-2022 13:16-0400 Heart rate 70 /min Dr. Tonio Fajardo Work Phone: [facility] Work Phone: 03-01-2022 13:16-0400 Respiratory rate 18 /min Dr. Tonio Fajardo Work Phone: [facility] Work Phone: 03-01-2022 13:16-0400 Systolic blood pressure 141 mm[Hg] Dr. Tonio Fajardo Work Phone: [facility] Work Phone: 02-08-2022 13:06-0400 Body temperature 98.1 [degF] Dr. Tonio Fajardo Work Phone: [facility] Work Phone: 02-08-2022 13:06-0400 Diastolic blood pressure 63 mm[Hg] Dr. Tonio Fajardo Work Phone: [facility] Work Phone: 02-08-2022 13:06-0400 Heart rate 83 /min Dr. Tonio Fajardo Work Phone: [facility] Work Phone: 02-08-2022 13:06-0400 Respiratory rate 20 /min Dr. Tonio Fajardo Work Phone: [facility] Work Phone: 02-08-2022 13:06-0400 Systolic blood pressure 131 mm[Hg] Dr. Tonio Fajardo Work Phone: [facility] Work Phone: 01-17-2022 10:56-0400 Body height 167.[address] Tonio Fajardo Work Phone: [facility] Work Phone: 01-17-2022 10:56-0400 Body mass index (BMI) [Ratio] 31.9 kg/m2 Dr. Tonio Fajardo Work Phone: [facility] Work Phone: 01-17-2022 10:56-0400 Body weight 89.[address] Tonio Fajardo Work Phone: [facility] Work Phone: 01-17-2022 10:56-0400 Diastolic blood pressure 44 mm[Hg] Dr. Tonio Fajardo Work Phone: [facility] Work Phone: 01-17-2022 10:56-0400 Heart rate 64 /min Dr. Tonio Fajardo Work Phone: [facility] Work Phone: 01-17-2022 10:56-0400 Respiratory rate 22 /min Dr. Tonio Fajardo Work Phone: [facility] Work Phone: 01-17-2022 10:56-0400 SaO2% (BldA) [Mass fraction] 95 % Dr. Tonio Fajardo Work Phone: [facility] Work Phone: 01-17-2022 10:56-0400 Systolic blood pressure 101 mm[Hg] Dr. Tonio Fajardo Work Phone: [facility] Work Phone: 01-17-2022 10:56-0400 Body height 167.[address] Tonio Fajardo Work Phone: [facility] Work Phone: 01-17-2022 10:56-0400 Body mass index (BMI) [Ratio] 31.9 kg/m2 Dr. Tonio Fajardo Work Phone: [facility] Work Phone: 01-17-2022 10:56-0400 Body weight 89.[address] Tonio Fajardo Work Phone: [facility] Work Phone: 01-17-2022 10:56-0400 Diastolic blood pressure 44 mm[Hg] Dr. Tonio Fajardo Work Phone: [facility] Work Phone: 01-17-2022 10:56-0400 Heart rate 64 /min Dr. Tonio Fajardo Work Phone: [facility] Work Phone: 01-17-2022 10:56-0400 Respiratory rate 22 /min Dr. Tonio Fajardo Work Phone: [facility] Work Phone: 01-17-2022 10:56-0400 SaO2% (BldA) [Mass fraction] 95 % Dr. Tonio Fajardo Work Phone: [facility] Work Phone: 01-17-2022 10:56-0400 Systolic blood pressure 101 mm[Hg] Dr. Tonio Fajardo Work Phone: [facility] Work Phone: 01-04-2022 12:59-0400 Body temperature 96.4 [degF] Dr. Tonio Fajardo Work Phone: [facility] Work Phone: 01-04-2022 12:59-0400 Diastolic blood pressure 64 mm[Hg] Dr. Tonio Fajardo Work Phone: [facility] Work Phone: 01-04-2022 12:59-0400 Heart rate 70 /min Dr. Tonio Fajardo Work Phone: [facility] Work Phone: 01-04-2022 12:59-0400 Respiratory rate 16 /min Dr. Tonio Fajardo Work Phone: [facility] Work Phone: 01-04-2022 12:59-0400 Systolic blood pressure 135 mm[Hg] Dr. Tonio Fajardo Work Phone: [facility] Work Phone: 12-21-2021 13:10-0400 Body temperature 97 [degF] [facility] Work Phone: 12-21-2021 13:10-0400 Diastolic blood pressure 62 mm[Hg] [facility] Work Phone: 12-21-2021 13:10-0400 Heart rate 88 /min [facility] Work Phone: 12-21-2021 13:10-0400 Systolic blood pressure 173 mm[Hg] [facility] Work Phone: 12-18-2021 00:38-0400 Respiratory rate 16 /min [facility] Work Phone: 11-29-2021 13:03-0400 Body temperature 97.4 [degF] [facility] Work Phone: 11-29-2021 13:03-0400 Diastolic blood pressure 43 mm[Hg] [facility] Work Phone: 11-29-2021 13:03-0400 Heart rate 69 /min [facility] Work Phone: 11-29-2021 13:03-0400 Respiratory rate 16 /min [facility] Work Phone: 11-29-2021 13:03-0400 Systolic blood pressure 134 mm[Hg] [facility] Work Phone: 11-09-2021 13:07-0400 Body temperature 97 [degF] [facility] Work Phone: 11-09-2021 13:07-0400 Diastolic blood pressure 41 mm[Hg] [facility] Work Phone: 11-09-2021 13:07-0400 Heart rate 73 /min [facility] Work Phone: 11-09-2021 13:07-0400 Respiratory rate 18 /min [facility] Work Phone: 11-09-2021 13:07-0400 Systolic blood pressure 126 mm[Hg] [facility] Work Phone: Encounters Encounter Date Encounter Type Care Provider Facility Start: 05-13-2025 ambulatory [facility] Facility:[facility] Start: 05-12-2025 Evaluation and management of inpatient [facility] Facility:[facility] Start: 05-12-2025 ambulatory [facility] Start: 05-04-2025 ambulatory [facility] Start: 05-04-2025 Jakob Goddard DO -WC- [facility] Start: 05-04-2025 End: 05-04-[address] Tonio Fajardo DO Work Phone: -Endoscopy Start: 05-04-2025 End: 05-04-2025 Jakob Goddard DO -Endoscopy Work Phone: Start: 04-28-2025 End: 04-28-[address] Tonio Fajardo DO Work Phone: -[facility] Start: 04-28-2025 End: 04-28-2025 Carol Sousa [facility] Work Phone: Start: 04-23-2025 End: 05-11-2025 Evaluation and management of inpatient [facility] Facility:[facility] Start: 04-23-2025 Dr. Valdez Olivo MD [facility] Start: 04-23-2025 Dr. Tonio Mccallum [facility] Work Phone: Start: 04-21-2025 Dr. Tonio Mccallum [facility] Work Phone: Start: 04-20-2025 Dr. Tonio Mccallum [facility] Work Phone: Start: 04-20-2025 ambulatory [facility] Facility: [facility] Start: 04-20-2025 End: 04-23-2025 Evaluation and management of inpatient Dr. Tonio Fajardo DO Work Phone: -Progressive Care Unit Start: 04-20-2025 End: 04-23-2025 Dr. Tonio Mccallum -Progressive Care Unit Work Phone: Start: 04-19-2025 ambulatory [facility] Facility: [facility] Start: 04-19-[address] Tonio Fajardo DO Work Phone: -Progressive Care Unit Start: 04-19-2025 Dr. Kwaku Narayanan DO -Progressive Care Unit Work Phone: Start: 04-19-2025 End: 04-19-[address] Tonio Fajardo DO Work Phone: -[facility] Start: 04-19-2025 End: 04-19-2025 Dr. Tonio Fajardo DO Work Phone: -Emergency Department Work Phone: Start: 04-17-2025 End: 04-19-2025 Evaluation and management of inpatient Dr. Tonio Fajardo DO Work Phone: -Transitional Care Unit Start: 04-17-2025 End: 04-19-2025 Dr. Valdez Olivo MD -Transitional Care Unit Start: 04-16-2025 ambulatory Carol Sousa Facility: [facility] Start: 04-13-2025 End: 04-17-2025 Evaluation and management of inpatient DR DAVID STERLING MD [facility] Start: 04-12-2025 End: 04-13-2025 Dr. Tonio [...] Unit Start: 04-10-2025 End: 04-10-2025 Carol Sousa [facility] Work Phone: Start: 04-10-2025 Dr. Nicola Roman MD [facility] Work Phone: Start: 04-10-2025 End: 04-10-[address] Tonio Fajardo DO Work Phone: -[facility] Start: 04-10-2025 End: 04-10-2025 Dr. Issa Looney MD [facility] Work Phone: Start: 04-09-2025 Dr. Santos Hsu MD -[facility] Start: 04-09-2025 Dr. Nicola Roman MD -[facility] Work Phone: Start: 04-08-2025 Dr. Issa Looney MD [facility] Start: 04-08-2025 Dr. Nicola Roman MD -[facility] Work Phone: Start: 04-07-2025 Dr. Nicola Roman MD -[facility] Work Phone: Start: 04-06-2025 Dr. Deric Lantigua MD -[facility] Inpatient Physicians Work Phone: Start: 04-05-2025 ambulatory [facility] Facility: [facility] Start: 04-05-2025 End: 04-10-2025 Evaluation and management of inpatient Dr. Tonio Fajardo DO Work Phone: -Progressive Care Unit Start: 04-05-2025 End: 04-10-2025 Dr. Nicola Lindsey DO -Progressive Care Unit Work Phone: Start: 04-02-2025 End: 04-02-[address] Tonio Fajardo DO Work Phone: -Home Health Lab Start: 04-02-2025 Patient encounter procedure Carmelina E Aida -Home Health Lab Start: 04-02-2025 End: 04-02-2025 Carmelina E [facility] -Home Health Lab Start: 04-02-2025 End: 04-02-2025 ambulatory [facility] Facility:[facility] Start: 03-27-2025 End: 03-27-[address] Tonio Fajardo DO Work Phone: -Pulmonary Services/Neurology Start: 03-27-2025 End: 03-27-2025 Patient encounter procedure Leslie Arriaga PA -Pulmonary Services/Neurology Work Phone: Start: 03-27-2025 End: 03-27-2025 Leslie DAMIAN -Pulmonary Services/Neurology Work Phone: Start: 03-27-2025 End: 03-27-2025 ambulatory [facility] Facility:[facility] Start: 03-18-2025 End: 03-18-[address] Tonio Fajardo DO Work Phone: -Laboratory [facility] Villanue[facility] Start: 03-18-2025 End: 03-18-[address] Tonio LAOLaboratory Lucero Villanueva [facility] Start: 03-18-2025 End: 03-18-2025 [facility]. [facility] Start: 03-17-2025 End: 03-17-2025 Patient encounter procedure Leslie Arriaga [facility] Work Phone: Start: 03-17-2025 End: 03-17-2025 Leslie Arriaga [facility] Work Phone: Start: 03-17-2025 End: 03-18-[address] Tonio Fajardo DO Work Phone: -[facility] Start: 03-15-2025 End: 03-15-2025 Dr. Alex Matias MD -Emergency [facility] Work Phone: Start: 03-15-2025 End: 03-15-2025 Emergency department patient visit Dr. Tonio Fajardo DO Work Phone: -Emergency Department Work Phone: Start: 03-09-2025 Non-patient / Non-visit Dr. Deric Lantigua MD -[facility] Work Phone: Start: 03-09-2025 Dr. Deric Lantigua MD [facility] Inpatient Physicians Work Phone: Start: 03-09-2025 Non-patient / Non-visit Dr. Willian Glaser MD [facility] Start: 03-09-2025 Dr. Willian Glaser MD [facility] Start: 03-08-2025 Non-patient / Non-visit Dr. Marjorie castellano MD [facility] Start: 03-08-2025 Dr. Marjorie Green MD [facility] Start: 03-07-2025 Non-patient / Non-visit Dr. Deric Lantigua MD [facility] Work Phone: Start: 03-07-2025 Dr. Deric Lantigua MD -[facility] Inpatient Physicians Work Phone: Start: 03-06-2025 Non-patient / Non-visit Dr. Deric Lantigua MD -[facility] Work Phone: Start: 03-06-2025 Dr. Deric Lantigua MD -[facility] Inpatient Physicians Work Phone: Start: 03-06-2025 Non-patient / Non-visit Dr. Marjorie castellano MD -[facility] Start: 03-06-2025 Dr. Marjorie Green MD [facility] Start: 03-05-2025 ambulatory [facility] Start: 03-05-2025 Non-patient / Non-[facility] Start: 03-05-2025 Dr. Marjorie Green MD [facility] Start: 03-05-2025 Non-patient / Non-visit Dr. Deric Lantigua MD -[facility] Work Phone: Start: 03-05-2025 Dr. Deric Lantigua MD -[facility] Inpatient Physicians Work Phone: Start: 03-04-2025 ambulatory [facility] Start: 03-04-2025 End: 03-09-2025 Evaluation and management of inpatient Dr. Nicola Lindsey DO -Progressive Care Unit Work Phone: Start: 03-04-2025 End: 03-09-2025 Dr. Deric Lantigua MD -Progressive Care U nit Work Phone: Start: 11-06-[address] Russ Zamora MD -[facility] Start: 11-06-2024 End: 11-06-[address] Russ Zamora MD -[facility] Work Phone: Start: 11-06-2024 End: 11-06-2024 ambulatory Tonio Fajardo Facility[facility] Start: 10-30-2024 End: 10-30-[address] Tonio Fajardo DO Work Phone: [facility] Work Phone: Start: 10-30-2024 End: 10-30-[address] Russ Zamora MD -Cat Scan, [facility] Work Phone: Start: 10-30-2024 End: 10-30-2024 ambulatory Tonio Fajardo Facility:[facility] Start: 10-23-2024 End: 10-23-2024 Patient encounter procedure Lorie Mart NP-C -[facility] Work Phone: Start: 10-23-2024 End: 10-23-2024 ambulatory Tonio Fajardo Facility[facility] Start: 10-20-2024 End: 10-20-[address] Tonio Fajardo DO Work Phone: [facility] Work Phone: Start: 10-20-2024 End: 10-20-[address] Tonio Fajardo DO -Laboratory, [facility] Start: 10-20-2024 End: 10-20-2024 ambulatory Tonio Fajardo Facility:[facility] Start: 10-17-2024 ambulatory Lorie Mart NP Fac ility:[facility] Start: 10-17-2024 Non-patient / Non-visit Dr. Tyrell zuniga DO -[facility] Start: 10-16-2024 End: 10-16-[address] Tonio Fajardo DO Work Phone: [facility] Work Phone: Start: 10-16-2024 End: 10-16-2024 Patient encounter procedure Lorie Mart NP-C -Pulmonary Services/Neurology Work Phone: Start: 10-16-2024 End: 10-16-2024 ambulatory Lorie Mart NP Facility:[facility] Start: 09-25-2024 End: 09-25-2024 Patient encounter procedure Leslie DAMIAN -[facility] Work Phone: Start: 09-25-2024 End: 09-25-2024 ambulatory Leslie DAMIAN [facility] Start: 09-25-2024 End: 09-25-2024 ambulatory Leslie DAMIAN Facility:[facility] Start: 07-03-2024 End: 07-03-[address] Joaquim Suárez [facility] -Laboratory, Specimen Work Phone: Start: 07-03-2024 End: 07-03-2024 ambulatory Tonio Fajardo Facility:[facility] Start: 06-17-2024 End: 06-17-2024 ambulatory Tonio Fajardo Facility:[facility] Start: 12-24-2023 End: 12-24-[address] Tonio Fajardo Work Phone: [facility] Work Phone: Start: 12-24-2023 End: 12-24-[address] Tonio Fajardo Work Phone: [facility]-Laboratory, Specimen Work Phone: Start: 11-12-2023 End: 11-12-[address] Tonio Fajardo Work Phone: [facility] Work Phone: Start: 11-06-[address] Tonio Fajardo Work Phone: [facility] Start: 10-31-2023 End: 10-31-[address] Tonio Fajardo Work Phone: [facility] Pulmonary Medicine Work Phone: Start: 10-18-2023 End: 10-18-[address] Tonio Fajardo Work Phone: [facility] Work Phone: Start: 10-12-2023 End: 10-12-[address] Tonio Fajardo Work Phone: [facility] Work Phone: Start: 10-12-2023 End: 10-12-[address] Tonio Fajardo Work Phone: [facility]-Cat Scan, [facility] Work Phone: Start: 08-29-2023 End: 08-29-[address] Tonio Fajardo Work Phone: [facility] Work Phone: Start: 08-22-2023 Non-patient / Non-visit Dr. Min Fajardo Work Phone: [facility] Start: 08-22-2023 End: 08-22-[address] Tonio Fajardo Work Phone: [facility]-Cardiovascula r Services Work Phone: Start: 07-26-2023 End: 07-26-[address] Tonio Fajardo Work Phone: [facility] Work Phone: Start: 07-26-2023 End: 07-26-[address] Tonio Fajardo Work Phone: [facility] Work Phone: Start: 07-25-2023 End: 07-25-[address] Tonio Fajardo Work Phone: [facility]-Pulmonary Medicine [facility] Work Phone: Start: 06-22-2023 End: 06-22-[address] Tonio Fajardo Work Phone: [facility] Work Phone: Start: 06-22-2023 End: 06-22-[address] Tonio Fajardo Work Phone: [facility]-Laboratory, Specimen Work Phone: Start: 06-08-2023 End: 06-08-2023 Admission to same day surgery center Dr[facility]io [facility]ajardo [facility] Start: 06-08-2023 End: 06-08-[address] Tonio Fajardo Work Phone: [facility] Work Phone: Start: 05-02-2023 End: 05-19-[address] [facility]io [facility]ajardo [facility] Work Phone: Start: 04-20-2023 Non-patient / Non-visit Dr. Min Fajardo Work Phone: [facility] Start: 04-18-2023 End: 04-19-[address] Tonio Fajardo Work Phone: [facility] Work Phone: Start: 04-18-2023 End: 04-19-[address] Tonio Fajardo [facility] Work [facility]: Start: 04-17-[address] Tonio Fajardo Work Phone: [facility] Start: 04-17-2023 End: 04-17-[address] Tonio Fajardo Work Phone: [facility] Work Phone: Start: 04-10-2023 End: 04-10-[address] Tonio Fajardo Work Phone: [facility] Work Phone: Start: 04-10-2023 End: 04-10-[address] Tonio Fajardo Work Phone: [facility] Work Phone: Start: 04-02-2023 Non-patient / Non-visit Dr. Min Fajardo Work Phone: [facility] Start: 04-02-[address] Tonio Fajardo [facility] Phone[facility] Work Phone: Start: 03-19-2023 Non-patient / Non-visit Dr. Min Fajardo Work Phone: [facility] Start: 03-19-2023 End: 03-19-[address] Tonio Fajardo Work Phone: [facility] Work Phone: Start: 03-19-2023 End: 03-19-[address] Tonio Fajardo Work Phone: [facility] Work Phone: Start: 03-05-2023 Non-patient / Non-visit Dr. Min Fajardo Work Phone: [facility] Start: 02-23-2023 End: 02-23-[address] Tonio Fajardo Work Phone: [facility] Work Phone: Start: 02-19-2023 Non-patient / Non-visit Dr. Min Fajardo Work Phone: [facility] Start: 02-05-2023 Non-patient / Non-visit Dr. Min Fajardo Work Phone: [facility] Start: 02-05-2023 End: 02-16-[address] Tonio Fajardo Work Phone: [facility] Work Phone: Start: 02-05-2023 End: 02-16-[address] Tonio Fajardo Work Phone: [facility] Work Phone: Start: 01-22-2023 Non-patient / Non-visit Dr. Min Fajardo Work Phone: [facility] Start: 01-08-2023 Non-patient / Non-visit Dr. Min Fajardo Work Phone: [facility] Start: 01-08-2023 End: 01-17-[address] Tonio Fajardo Work Phone: [facility] Work Phone: Start: 01-08-2023 End: 01-17-[address] Tonio Fajardo [facility] Start: 12-30-2022 End: 12-31-2022 Emergency department patient visit Dr. Tonio Fajardo Work Phone: [facility]-Emergency Department Start: 12-25-2022 Non-patient / Non-visit Dr. Min Fajardo Work Phone: [facility] Start: 12-25-[address] Tonio Fajardo Work Phone: [facility] Start: 12-18-2022 Non-patient / Non-visit Dr. Min Fajardo Work Phone: [facility] Start: 12-12-2022 End: 12-12-[address] Tonio Fajardo [facility] Start: 12-11-2022 Non-patient / Non-visit Dr. Min Fajardo Work Phone: [facility] Start: 12-11-2022 End: 12-17-[address] Tonio Fajardo Work Phone: [facility] Work Phone: Start: 12-11-2022 End: 12-17-[address] Tonio Fajardo Work Phone: [facility] Start: 12-06-2022 Non-patient / Non-visit Dr. Min Fajardo Work Phone: [facility] Start: 11-27-2022 Non-patient / Non-visit Dr. Min Fajardo Work Phone: [facility] Start: 11-20-2022 Non-patient / Non-visit Dr. Min Fajardo Work Phone: [facility] Start: 11-08-2022 Non-patient / Non-visit Dr. Min Fajardo Work Phone: [facility] Start: 11-08-2022 End: 11-17-[address] Tonio Fajardo Work Phone: [facility] Start: 10-30-2022 Non-patient / Non-visit Dr. Min Fajardo Work Phone: [facility] Start: 10-23-2022 Non-patient / Non-visit Dr. Min Fajardo Work Phone: [facility] Start: 10-18-2022 Non-patient / Non-visit Dr. Min Fajardo Work Phone: [facility] Start: 10-16-[address] Tonio Fajardo Work Phone: [facility] Start: 10-16-2022 End: 10-16-[address] Tonio Fajardo Work Phone: [facility] Start: 10-09-2022 Non-patient / Non-visit Dr. Min Fajardo Work Phone: [facility] Start: 10-09-2022 End: 10-09-[address] Tonio Fajardo Work Phone: [facility] Start: 10-09-2022 End: 10-17-[address] Tonio Fajardo Work Phone: [facility] Work Phone: Start: 10-09-2022 End: 10-17-[address] Tonio Fajardo [facility] Start: 10-09-[address] Tonio Fajardo Work Phone[facility] Start: 10-02-2022 Non-patient / Non-visit Dr. Min Fajardo Work Phone: [facility] Start: 10-02-2022 End: 10-02-[address] Tonio Fajardo Work Phone: [facility] Start: 09-25-2022 Non-patient / Non-visit Dr. Min Fajardo Work Phone: [facility] Start: 09-18-2022 Non-patient / Non-visit Dr. Min Fajardo Work Phone: [facility] Start: 09-18-2022 End: 09-19-[address] Tonio Fajardo Work Phone: [facility] Work Phone: Start: 09-18-2022 End: 09-19-[address] Tonio Fajardo [facility] Start: 08-29-2022 Non-patient / Non-visit Dr. Min Fajardo Work Phone: [facility] Start: 08-15-2022 Non-patient / Non-visit Dr. Min Fajardo Work Phone: [facility] Start: 08-15-2022 End: 08-19-[address] Tonio Fajardo Work Phone: [facility] Work Phone: Start: 08-15-2022 End: 08-19-[address] Tonio Fajardo Work Phone: [facility] Start: 08-08-2022 End: 08-08-[address] Tonio Fajardo Work Phone: [facility] Start: 08-01-2022 Non-patient / Non-visit Dr. Min Fajardo Work Phone: [facility] Start: 07-28-2022 Telephone encounter Steven Parra APRN.CNP Work Phone: [facility] Comment on above: Patient Update Start: 07-19-2022 End: 07-19-[address] Tonio Fajardo Work Phone: [facility] Start: 07-18-2022 Non-patient / Non-visit Dr. Min Fajardo Work Phone: [facility] Start: 07-18-2022 End: 07-19-[address] Tonio Fajardo Work Phone: [facility] Work Phone: Start: 07-18-2022 End: 07-19-[address] Tonio Fajardo Work Phone: [facility] Start: 07-17-2022 End: 07-17-[address] Tonio Fajardo Work Phone: [facility] Start: 07-09-[address] Tonio [facility]ajardo [facility] Start: 07-09-2022 Non-patient / Non-visit Dr. Min Fajardo Work Phone: [facility] Start: 07-05-2022 End: 07-05-[address] Tonio Fajardo Work Phone: [facility] Start: 06-28-2022 End: 06-28-[address] Tonio Fajardo Work Phone: [facility] Start: 06-26-2022 Non-patient / Non-visit Dr. Min Fajardo Work Phone: [facility] Start: 06-21-2022 End: 06-21-[address] Tonio Fajardo Work Phone: [facility] Start: 06-19-[address] Tonio Fajardo [facility] Start: 06-14-2022 End: 06-14-[address] Tonio Fajardo Work Phone: [facility] Start: 06-12-2022 Non-patient / Non-visit Dr. Min Fajardo Work Phone: [facility] Start: 06-12-2022 End: 06-19-[address] Tonio Fajardo Work Phone: [facility] Work Phone: Start: 06-12-2022 End: 06-19-[address] Tonio Fajardo [facility] Start: 06-06-2022 Non-patient / Non-visit Dr. Min Fajardo Work Phone: [facility] Start: 06-02-2022 Non-patient / Non-visit Dr. Min Fajardo Work Phone: [facility] Start: 06-02-2022 End: 06-02-[address] Tonio Fajardo Work Phone: [facility] Work Phone: Start: 06-02-2022 End: 06-02-[address] Tonio Fajardo Work Phone: [facility]-Pulmonary Services/Neurology Start: 06-01-2022 Non-patient / Non-visit Dr. Min Fajardo Work Phone: [facility] Start: 06-01-[address] Tonio Fajardo [facility] Start: 05-30-[address] Tonio Fajardo Work Phone: [facility] Start: 05-30-2022 End: 05-30-[address] Tonio Fajardo Work Phone: [facility] Start: 05-29-2022 Non-patient / Non-visit Dr. Min Fajardo Work Phone: [facility] Start: 05-29-[address] Tonio Fajardo [facility] Start: 05-24-2022 End: 05-24-[address] Tonio Fajardo Work Phone: [facility] Start: 05-24-2022 Non-patient / Non-visit [facility]. Min Fajardo [facility] Start: 05-24-[address] Tonio Fajardo Work Phone: [facility] Start: 05-22-2022 End: 05-22-[address] Tonio Fajardo Work Phone: [facility] Work Phone: Start: 05-22-2022 End: 05-22-[address] Ton[facility] F[facility] Work Phone: [facility] Start: 05-17-2022 Non-patient / Non-visit Dr. Min Fajardo Work Phone: [facility] Start: 05-17-2022 End: 05-19-[address] Tonio Fajardo Work Phone: [facility] Work Phone: Start: 05-17-2022 End: 05-19-[address] Tonio Fajardo [facility] Start: 05-17-[address] Tonio Fajardo Work Phone: [facility] Start: 05-11-2022 End: 05-11-[address] Tonio Fajardo Work Phone: [facility] Start: 05-11-2022 End: 05-11-[address] Tonio Fajardo [facility] Start: 04-28-2022 Non-patient / Non-visit Dr. Min Fajardo Work Phone: [facility] Start: 04-28-2022 End: 04-28-[address] Tonio Fajardo Work Phone: [facility] Work Phone: Start: 04-28-2022 End: 04-28-[address] Tonio Fajardo Work Phone: [facility] Start: 04-26-[address] Tonio Fajardo Work Phone: [facility] [facility] Start: 04-14-2022 End: 04-14-[address] Tonio Fajardo Work Phone: [facility] Work Phone: Start: 04-14-2022 End: 04-14-[address] Tonio Fajardo Work Phone: [facility]-Laboratory, [facility] Start: 04-14-2022 End: 04-14-2022 Emergency department patient visit Dr. Tonio Fajardo Work Phone: [facility]-Emergency Department Start: 04-12-2022 End: 04-12-[address] Tonio Fajardo Work Phone: [facility] Work Phone: Start: 04-12-2022 End: 04-12-[address] Tonio Fajardo Work Phone: [facility] Start: 04-12-2022 End: 04-19-[address] Tonio Fajardo Work Phone: [facility] Work Phone: Start: 04-12-2022 End: 04-19-[address] Tonio Fajardo Work Phone: [facility] Start: 04-12-[address] Tonio Fajardo Work Phone: [facility] Start: 04-06-2022 Telephone encounter Carlos Rivera MD Work Phone: [facility] Comment on above: Results (COVID+) Start: 04-05-2022 End: 04-05-2022 ambulatory TONIO FAJARDO Facility:[facility] Start: 04-05-2022 Telephone encounter Steven Jerry Parra APRN.LEAD MECHANIC Work Phone: [facility] Comment on above: Results Start: 04-05-2022 End: 04-05-2022 Subsequent hospital visit by physician Xr [facility] Waqar Work Phone: Radiology Comment on above: Acute cough [R05.1] Start: 04-05-2022 End: 04-05-2022 Patient encounter procedure Steven Melgar APRN.LEAD MECHANIC Work Phone: [facility] Comment on above: Burning with urinati on (Primary Dx); Acute cough; Suspected COVID-19 virus infection Start: 03-01-2022 End: 03-19-[address] Tonio Fajardo Work Phone: [facility] Start: 02-08-2022 End: 02-16-[address] Tonio Fajardo Work Phone: [facility] Start: 01-17-2022 End: 01-17-[address] Tonio Fajardo Work Phone: [facility] Start: 01-04-2022 End: 01-17-[address] Tonio Fajardo Work Phone: [facility] Start: 12-21-2021 Registered Recurring [facility] Start: 12-19-2021 End: 12-19-2021 Patient encounter procedure [facility] Start: 11-29-2021 End: 12-17-2021 Nutrition therapy [facility] Start: 11-09-2021 End: 11-17-2021 Nutrition therapy [facility] Procedures Date Procedure Procedure Detail Performing Clinician Start: 05-04-[address] Tonio bhagat DO Work Phone: Start: 05-01-2025 Blood count smear mcrscp w/mnl difrntl wbc count Dr. Tonio Fajardo DO Work Phone: Start: 05-01-[address] Tonio Fajardo [employer] Work Phone: Start: 05-01-2025 Mean corpuscular hemoglobin concentration determination Dr. Tonio Fajardo DO Work Phone: Start: 05-01-2025 Nucleated red blood cell count procedure Dr. Tonio Fajardo DO Work Phone: Start: 05-01-2025 Platelet mean volume determination Dr. Silvana Fajardo [employer] Work Phone: Start: 04-30-2025 Measurement of occult blood in stool specimen using immunoassay Dr. Tonio Fajardo DO Work Phone: Start: 04-30-2025 X-ray of chest, PA and lateral views Dr. Tonio Fajardo DO Work Phone: Start: 04-24-2025 Blood count smear mcrscp w/mnl difrntl wbc count Dr. Tonio Fajardo DO Work Phone: Start: 04-24-[address] Tonio Fajardo [employer] Work Phone: Start: 04-24-2025 Mean corpuscular hemoglobin [...] Start: 04-10-2025 Microbial culture, body fluid Dr. Tonoi davis DO Work Phone: Start: 04-10-2025 Calculation [...] Start: 03-05-2025 Total cholesterol:HDL ratio measurement Dr. Tonoi Fajardo DO Work Phone: Start: 03-05-2025 Plain [...] Radiologic exam chest 2 views Steven Melgar [employer] MECHANIC Work Phone: Start: 04-05-2022 Urnls dip stick/tablet rgnt auto w/o microscopy [employer]eliaevangelist [employer]ning[employer]ER.[employer] MECHANIC Work Phone: Start: 11-02-2021 X-ray of both [...] Activity Detail Author Start: 05-05-2025 Patient discharge [facility] Start: 05-04-2025 [facility] Start: 05-01-2025 Administration of bl ood product [facility] Start: 05-01-2025 [facility] Start: 04-30-2025 Referral to gastroenterology service [facility] Start: 04-29-2025 [facility] Start: 04-28-2025 [facility] Start: 04-25-2025 Speech therapy management [facility] Start: 04-24-2025 Speech therapy assessment [facility] Start: 04-24-2025 [facility] Start: 04-24-2025 Development of care plan [facility] Start: 04-24-2025 Developing a treatme nt plan [facility] Start: 04-24-2025 End: 04-24-2025 Consultation for treatment [facility] Start: 04-24-2025 Contact precautions [facility] Start: 04-23-2025 Following clinical p athway protocol [facility] Start: 04-23-2025 Admission procedure [facility] Start: 04-23-2025 Introduction of urin dakota catheter [facility] Start: 04-23-2025 Measuring intake and output [facility] Start: 04-23-2025 End: 04-24-2025 Patient referral to dietitian [facility] Start: 04-23-2025 Referral to occupati onal therapist [facility] Start: 04-23-2025 Referral to service [facility] Start: 04-23-2025 Verification routine [facility] Start: 04-23-2025 Vital signs measurements [facility] Start: 04-23-2025 End: 04-23-2025 [facility] Start: 04-23-2025 Patient discharge [facility] Start: 04-23-2025 Oxygen therapy [facility] Start: 04-22-2025 Inhalation therapy procedure [facility] Start: 04-20-2025 Admission procedure [facility] Start: 04-20-2025 [facility] Start: 04-19-2025 Following clinical p athway protocol [facility] Start: 04-19-2025 Ambulation without limitation [facility] Start: 04-19-2025 Assessment of risk o f venous thromboembolism [facility] Start: 04-19-2025 Care regimes management [facility] Start: 04-19-2025 Insertion of cathete r into peripheral vein [facility] Start: 04-19-2025 Measuring intake and output [facility] Start: 04-19-2025 Notification of physician [facility] Start: 04-19-2025 Oxygen therapy [facility] Start: 04-19-2025 Providing care accor ding to standard [facility] Start: 04-19-2025 Referral to occupati onal therapist [facility] Start: 04-19-2025 Referral to service [facility] Start: 04-19-2025 End: 04-19-2025 [facility] Start: 04-19-2025 End: 04-19-2025 Serum inorganic phosphate measurement [facility] Start: 04-19-2025 Verification routine [facility] Start: 04-19-2025 Hospital admission, emergency, from emergency room, medical nature [facility] Start: 04-19-2025 Admission procedure [facility] Start: 04-19-2025 End: 04-19-2025 [facility] Start: 04-19-2025 Patient discharge [facility] Start: 04-19-2025 Patient referral to dietitian [facility] Start: 04-18-2025 [facility] Start: 04-18-2025 Development of care plan [facility] Start: 04-18-2025 Developing a treatme nt plan [facility] Start: 04-18-2025 Consultation for treatment [facility] Start: 04-18-2025 Wound care [facility] Start: 04-17-2025 Admission procedure [facility] Start: 04-17-2025 Introduction of urin dakota catheter [facility] Start: 04-17-2025 Measuring intake and output [facility] Start: 04-17-2025 Patient referral to dietitian [facility] Start: 04-17-2025 Referral to occupati onal therapist [facility] Start: 04-17-2025 Referral to service [facility] Start: 04-17-2025 Vital signs measurements [facility] Start: 04-17-2025 [facility] Start: 04-17-2025 Oxygen therapy [facility] Start: 04-13-2025 Development of care plan [facility] Start: 04-13-2025 End: 04-13-2025 [facility] Start: 04-13-2025 Patient discharge [facility] Start: 04-12-2025 [facility] Start: 04-11-2025 Referral to occupati onal therapist [facility] Start: 04-11-2025 Developing a treatme nt plan [facility] Start: 04-11-2025 [facility] Start: 04-11-2025 Wound care [facility] Start: 04-11-2025 Consultation for treatment [facility] Start: 04-11-2025 Contact precautions [facility] Start: 04-10-2025 Following clinical p athway protocol [facility] Start: 04-10-2025 Admission procedure [facility] Start: 04-10-2025 Introduction of urin dakota catheter [facility] Start: 04-10-2025 Measuring intake and output [facility] Start: 04-10-2025 End: 04-11-2025 Patient referral to dietitian [facility] Start: 04-10-2025 Referral to occupati onal therapist [facility] Start: 04-10-2025 Referral to service [facility] Start: 04-10-2025 Vital signs measurements [facility] Start: 04-10-2025 Oxygen therapy [facility] Start: 04-10-2025 Patient discharge [facility] Start: 04-10-2025 End: 04-10-2025 Microbial culture, body fluid [facility] Start: 04-10-2025 Anaerobic microbial culture [facility] Start: 04-10-2025 End: 04-10-2025 [facility] Start: 04-09-2025 Referral to service [facility] Start: 04-09-2025 Care planning and pr oblem solving actions [facility] Start: 04-09-2025 Assessment of risk o f venous thromboembolism [facility] Start: 04-09-2025 Catheterization of vein [facility] Start: 04-09-2025 Notification of physician [facility] Start: 04-09-2025 Taking patient vital signs [facility] Start: 04-09-2025 Wound care [facility] Start: 04-09-2025 End: 04-09-2025 [facility] Start: 04-09-2025 Care planning and pr oblem solving actions [facility] Start: 04-09-2025 [facility] Start: 04-08-2025 Catheterization of vein [facility] Start: 04-08-2025 Notification of physician [facility] Start: 04-08-2025 [facility] Start: 04-08-2025 Referral to chairman emeritus [facility] Start: 04-08-2025 End: 04-08-2025 Referral to service [facility] Start: 04-07-2025 Referral to occupati onal therapist [facility] Start: 04-07-2025 Referral to service [facility] Start: 04-07-2025 Provision of activit y privileges [facility] Start: 04-07-2025 Wound care [facility] Start: 04-06-2025 [facility] Start: 04-06-2025 Continuous pulse oximetry [facility] Start: 04-06-2025 Consultation for treatment [facility] Start: 04-06-2025 XR Chest Single view [facility] Start: 04-06-2025 [facility] Start: 04-06-2025 Inhalation therapy procedure [facility] Start: 04-05-2025 Following clinical p athway protocol [facility] Start: 04-05-2025 Assessment of risk o f venous thromboembolism [facility] Start: 04-05-2025 Care regimes management [facility] Start: 04-05-2025 Catheterization of vein [facility] Start: 04-05-2025 Insertion of cathete r into peripheral vein [facility] Start: 04-05-2025 Measuring intake and output [facility] Start: 04-05-2025 Notification of physician [facility] Start: 04-05-2025 Oxygen therapy [facility] Start: 04-05-2025 Providing care accor ding to standard [facility] Start: 04-05-2025 Provision of activit y privileges [facility] Start: 04-05-2025 Referral to occupati onal therapist [facility] Start: 04-05-2025 Referral to service [facility] Start: 04-05-2025 End: 04-05-2025 [facility] Start: 04-05-2025 Referral to supervisor claims [facility] Start: 04-05-2025 Verification routine [facility] Start: 04-05-2025 Urinalysis complete panel - Urine [facility] Start: 04-05-2025 Admission procedure [facility] Start: 04-05-2025 Hospital admission, emergency, from emergency room, medical nature [facility] Start: 04-05-2025 End: 04-05-2025 [facility] Start: 04-05-2025 Patient referral to dietitian [facility] Start: 03-27-2025 24 Hour ECG [facility] Start: 03-15-2025 [facility] Start: 03-15-2025 Control nasal hemorr min anterior simple [facility] Start: 03-09-2025 Referral to service [facility] Start: 03-09-2025 Patient discharge [facility] Start: 03-08-2025 Application of elast ic bandage [facility] Start: 03-07-2025 Introduction of urin dakota catheter [facility] Start: 03-06-2025 Inhalation therapy procedure [facility] Start: 03-05-2025 [facility] Start: 03-05-2025 Care planning and pr oblem solving actions [facility] Start: 03-05-2025 Chest 1 View (Portable) Chest 1 View (Portable) [facility] Start: 03-05-2025 XR Chest Single view [facility] Start: 03-05-2025 Care planning and pr oblem solving actions [facility] Start: 03-04-2025 Following clinical p athway protocol [facility] Start: 03-04-2025 Assessment of risk o f venous thromboembolism [facility] Start: 03-04-2025 Care regimes management [facility] Start: 03-04-2025 Catheterization of vein [facility] Start: 03-04-2025 Insertion of cathete r into peripheral vein [facility] Start: 03-04-2025 Measuring intake and output [facility] Start: 03-04-2025 Notification of physician [facility] Start: 03-04-2025 Oxygen therapy [facility] Start: 03-04-2025 Providing care accor ding to standard [facility] Start: 03-04-2025 Provision of activit y privileges [facility] Start: 03-04-2025 Referral to chairman emeritus [facility] Start: 03-04-2025 Referral to occupati onal therapist [facility] Start: 03-04-2025 Referral to service [facility] Start: 03-04-2025 End: 03-04-2025 [facility] Start: 03-04-2025 Hospital admission, emergency, from emergency room, medical nature [facility] Start: 03-04-2025 Verification routine [facility] Start: 03-04-2025 Admission procedure [facility] Start: 03-04-2025 Thyroid stimulating hormone measurement [facility] Start: 03-04-2025 [facility] Start: 03-04-2025 Patient referral to dietitian [facility] Start: 04-20-2024 Covid-19 Vaccine ( season) Covid-19 Vaccine ( season) [facility] Start: 04-20-2024 Influenza vaccination Influenza Vacc ine (#1) [facility] Start: 08-20-2023 Advance Directive Discussion Advance Directive Discussion [facility] Start: 06-22-2023 [facility] Start: 06-08-2023 Patient discharge [facility] Start: 06-08-2023 Anes open proc bones lower leg/ankle/foot nos ANESTH LOWER LEG BONE SURG [facility] Start: 06-08-2023 Osteot w/wo lngth shrt/corrj 1st metar INCISION OF METATARSAL [facility] Start: 06-08-2023 Prep site f/s/n/h/f/ g/m/d gt 1st 100 sq cm/1pct WOUND PREP F/N/HF/G [facility] Start: 06-08-2023 Sub grft f/s/n/h/f/g /m/d <100sq cm 1st 25 sq cm SKIN SUB GRAFT FACE/NK/HF/G [facility] Start: 06-08-2023 Fluoroscopic guidance O.R. Fluoro fo r C-Arm [facility] Start: 06-08-2023 Radiography of foot Foot 2 Views [facility] Start: 12-30-2022 [facility] Start: 12-30-2022 End: 12-30-2022 Blood culture [facility] Start: 12-30-2022 End: 12-30-2022 [facility] Start: 10-16-2022 CBC W Auto Different ial panel - Blood [facility] Start: 10-16-2022 Lactate dehydrogenas e measurement [facility] Start: 10-16-2022 End: 10-16-2022 [facility] Start: 07-18-2022 [facility] Work Phone: Start: 05-18-2022 [facility] Work Phone: Start: 05-11-2022 Patient referral [facility] Work Phone: Start: 04-28-2022 CORE NDL BX LNG/MED PERQ CORE NDL BX LNG/MED PERQ [facility] Work Phone: Start: 04-28-2022 Following clinical p athway protocol [facility] Work Phone: Start: 04-28-2022 Catheterization of vein [facility] Work Phone: Start: 04-28-2022 Oxygen therapy [facility] Work Phone: Start: 04-28-2022 Patient discharge [facility] Work Phone: Start: 04-28-2022 Vital signs measurements [facility] Work Phone: Start: 04-20-2022 Influenza vaccination INFLUENZA (#1) [facility] Start: 04-05-2022 End: 04-19-2022 Influenza virus A and B RNA and SARS-CoV-2 (COVID-19) N gene panel - Respiratory specimen by BRYAN with probe detection [facility] Work Phone: Comment on above: Expected: 04/05/2022 , Expires: 04/19/2022 Start: 08-20-2021 ADVANCE DIRECTIVE DISCUSSION ADVANCE DIRECTIVE DISCUSSION [facility] Start: 08-20-2021 DEPRESSION ASSESSMENT DEPRESSION ASS ESSMENT [facility] Start: 05-04-2021 COVID-19 VACCINE (3 - Booster for Moderna series) COVID-19 VACCINE (3 - Booster for Moderna series) [facility] Start: 01-27-2021 COVID-19 VACCINE (3 - Booster for Moderna series) COVID-19 VACCINE (3 - Booster for Moderna series) [facility] Start: 01-15-2020 RSV Vaccine (1 - 1-d ose 75+ series) RSV Vaccine (1 - 1-dose 75+ series) [facility] Start: 12-01-2018 DIABETES SCREEN [facility] Start: 12-01-2018 Diabetes Screening Diabetes Screenin g [facility] Start: 2010 Pneumococcal Vaccine : 65+ (1 of 1 - PCV) Pneumococcal Vaccine: 65+ (1 of 1 - PCV) [facility] Start: 2010 PNEUMOCOCCAL: 65+ (1 - PCV) PNEUMOCOCCAL: 65+ (1 - PCV) [facility] Start: 1995 SHINGRIX VACCINE (1 of 2) HEIN GRIX VACCINE (1 of 2) [facility] Start: 01-15-1964 Urine microalbumin profile [facility] Start: 1963 Anxiety Screening Anxiety Screening [facility] Start: 1963 Depression Screening Depression Scre ening [facility] Start: 1963 HEPATITIS C SCREENING HEPATITIS C [facility] Start: 1957 Adult depression scr eening assessment [facility] 24 Hour ECG [facility] Alanine aminotransfe rase [Enzymatic activity/volume] in Serum or Plasma [facility] Albumin [Mass/volume ] in Serum or Plasma [facility] Alkaline phosphatase [Enzymatic activity/volume] in Serum or Plasma [facility] Anaerobic Culture Anaerobic Culture [facility] Work Phone: Anion gap in Serum o r Plasma [facility] Anion gap in Serum o r Plasma [facility] Anion gap in Serum o r Plasma [facility] Anion gap in Serum o r Plasma [facility] Anion gap measurement [facility] Aspartate aminotrans ferase [Enzymatic activity/volume] in Serum or Plasma [facility] Bacteria identified in Blood by Culture Blood Culture [facility] Bacteria identified in Body fluid by Culture [facility] Bacteria identified in Unspecified specimen by Anaerobe culture [facility] Work Phone: Bacteria identified in Unspecified specimen by Anaerobe culture [facility] Bacteria identified in Urine by Culture URINE CULTURE Microbiology Routine Burning with urination 04/05/2022 1:58 PM EDT [facility] Work Phone: Bacteria identified in Urine by Culture Urine Culture [facility] Bilirubin, total measurement [facility] BUN/Creatinine ratio [facility] BUN/Creatinine ratio [facility] BUN/Creatinine ratio [facility] BUN/Creatinine ratio [facility] BUN/Creatinine ratio [facility] Calcium [Mass/volume ] in Serum or Plasma [facility] Calcium [Mass/volume ] in Serum or Plasma [facility] Calcium [Mass/volume ] in Serum or Plasma [facility] Calcium [Mass/volume ] in Serum or Plasma [facility] Calcium [Mass/volume ] in Serum or Plasma [facility] Carbon dioxide, tota l [Moles/volume] in Central venous blood [facility] Carbon dioxide, tota l [Moles/volume] in Central venous blood [facility] Carbon dioxide, tota l [Moles/volume] in Central venous blood [facility] Carbon dioxide, tota l [Moles/volume] in Central venous blood [facility] Carbon dioxide, tota l [Moles/volume] in Serum or Plasma [facility] CBC W Auto Different ial panel - Blood [facility] Work Phone: CBC W Auto Different ial panel - Blood [facility] CBC W Auto Different ial panel - Blood [facility] Chloride [Moles/volu me] in Serum or Plasma [facility] Creatinine [Mass/vol ume] in Serum or Plasma [facility] Creatinine [Mass/vol ume] in Serum or Plasma [facility] Creatinine [Mass/vol ume] in Serum or Plasma [facility] Creatinine [Mass/vol ume] in Serum or Plasma [facility] Creatinine [Moles/vo lume] in Serum or Plasma [facility] CT Chest and Abdomen W contrast IV [facility] CT Chest [facility] Work Phone: CT Chest W [facility] Cytology report of B horace fluid Cyto stain [facility] Erythrocyte mean corpuscular volume determination [facility] Erythrocyte mean corpuscular volume determination [facility] Erythrocyte mean corpuscular volume determination [facility] Erythrocyte mean corpuscular volume determination [facility] Glucose [Mass/volume ] in Serum or Plasma [facility] Glucose [Mass/volume ] in Serum or Plasma [facility] Glucose [Mass/volume ] in Serum or Plasma [facility] Glucose [Mass/volume ] in Serum or Plasma [facility] Glucose [Mass/volume ] in Serum or Plasma [facility] Hematocrit [Volume Fraction] of Blood [facility] Hematocrit [Volume Fraction] of Blood [facility] Hematocrit [Volume Fraction] of Blood [facility] Hematocrit [Volume Fraction] of Blood [facility] Hematocrit [Volume Fraction] of Blood [facility] Hemoglobin [Mass/vol ume] in Blood [facility] Hemoglobin [Mass/vol ume] in Blood [facility] Hemoglobin [Mass/vol ume] in Blood [facility] Hemoglobin [Mass/vol ume] in Blood [facility] Hemoglobin [Mass/vol ume] in Blood [facility] Hemoglobin A1c/Hemoglobin.total in Blood [facility] Lactate dehydrogenas e measurement [facility] Lactate dehydrogenas e measurement [facility] LDH [facility] Work Phone: Leukocytes [#/volume ] in Blood [facility] Leukocytes [#/volume ] in Blood [facility] Leukocytes [#/volume ] in Blood [facility] Leukocytes [#/volume ] in Blood [facility] Leukocytes [#/volume ] in Blood [facility] Magnesium measurement [facility] Magnesium measurement [facility] Mean corpuscular hemoglobin concentration determination [facility] Mean corpuscular hemoglobin concentration determination [facility] Mean corpuscular hemoglobin concentration determination [facility] Mean corpuscular hemoglobin concentration determination [facility] Mean corpuscular hemoglobin concentration determination [facility] Mean corpuscular hemoglobin determination [facility] Mean corpuscular hemoglobin determination [facility] Mean corpuscular hemoglobin determination [facility] Mean corpuscular hemoglobin determination [facility] Mean corpuscular hemoglobin determination [facility] Measurement of renal function [facility] Measurement of renal function [facility] Measurement of renal function [facility] Measurement of renal function [facility] Measurement of renal function [facility] Microbial culture, routine Wound Culture [facility] Work Phone: Microscopic observat ion [Identifier] in Unspecified specimen by Gram stain [facility] MR Brain WO and W co ntrast IV [facility] Work Phone: Natriuretic peptide. B prohormone N-Terminal [Mass/volume] in Serum or Plasma [facility] Natriuretic peptide. B prohormone N-Terminal [Mass/volume] in Serum or Plasma [facility] Natriuretic peptide. B prohormone N-Terminal [Mass/volume] in Serum or Plasma [facility] Neutrophil count [facility] Neutrophil count [facility] Neutrophil count [facility] Neutrophil count [facility] Neutrophil count [facility] Neutrophil percent differential count [facility] Neutrophil percent differential count [facility] Neutrophil percent differential count [facility] Neutrophil percent differential count [facility] Neutrophil percent differential count [facility] Patient Education [facility] Work Phone: Patient referral [facility] Work Phone: Platelets [#/volume] in Blood [facility] Platelets [#/volume] in Blood [facility] Platelets [#/volume] in Blood [facility] Platelets [#/volume] in Blood [facility] Platelets [#/volume] in Blood [facility] Positron emission tomography with computed tomography [facility] Work Phone: Potassium [Moles/vol ume] in Serum or Plasma [facility] Potassium measurement [facility] Potassium measurement [facility] Potassium measurement [facility] Potassium measurement [facility] Procedure [facility] PT Unspecified body region [facility] Radiation oncology A ND/OR radiotherapy [facility] Work Phone: Radiation oncology A ND/OR radiotherapy [facility] Red blood cell count [facility] Red blood cell count [facility] Red blood cell count [facility] Red blood cell count [facility] Red blood cell count [facility] Red cell distributio n width determination [facility] Red cell distributio n width determination [facility] Red cell distributio n width determination [facility] Red cell distributio n width determination [facility] Red cell distributio n width determination [facility] Serum chloride measurement [facility] Serum chloride measurement [facility] Serum chloride measurement [facility] Serum chloride measurement [facility] Sodium [Moles/volume ] in Serum or Plasma [facility] Sodium measurement [facility] Sodium measurement [facility] Sodium measurement [facility] Sodium measurement [facility] Total protein measurement [facility] Troponin T.cardiac [Mass/volume] in Serum or Plasma by High sensitivity method [facility] Troponin T.cardiac [Mass/volume] in Serum or Plasma by High sensitivity method [facility] Troponin T.cardiac [Mass/volume] in Serum or Plasma by High sensitivity method [facility] Troponin T.cardiac [Mass/volume] in Serum or Plasma by High sensitivity method [facility] Urea nitrogen [Mass/volume] in Serum or Plasma [facility] Urea nitrogen [Mass/volume] in Serum or Plasma [facility] Urea nitrogen [Mass/volume] in Serum or Plasma [facility] Urea nitrogen [Mass/volume] in Serum or Plasma [facility] Urea nitrogen [Mass/volume] in Serum or Plasma [facility] Immunizations Immunization Date Immunization Notes [facility] Provider [facility]24 influenza virus vaccine, unspecified formulation DR DAVID STERLING MD [facility] 02-26-2024 pneumococcal 20-shannon nt conjugate vaccine DR DAVID STERLING MD [facility] 06-01-2023 influenza virus vaccine, unspecified formulation DR DAVID STERLING MD [facility] 04-27-2022 influenza virus vaccine, unspecified formulation DR DAVID STERLING MD [facility] 12-02-2020 SARS-CoV-2 (COVID-19 ) mRNA-[address] DAVID STERLING MD [facility] Comment on above: Result Comment: 2024: [id number] 11-04-2020 SARS-CoV-2 (COVID-19 ) mRNA-[address] DAVID STERLING MD [facility] Comment on above: Result Comment: 2024: [id number] 08-03-2014 influenza virus vaccine, unspecified formulation [facility] Work Phone: [facility] 06-20-2013 Influenza virus vaccine [facility] 06-20-2013 Pneumococcal Vaccine [facility] Work Phone: 06-20-2013 pneumococcal vaccine , unspecified formulation Dr. Tonio Fajardo Work Phone: [facility] Payers Date Payer Category Payer Self-pay [id number] 2025 Private Health Insurance [id number] 2022 Self-pay [id number] 2016 Self-pay [id number] 2009 Medicare [id number] 2009 Medicare [id number] 2009 [employer] ( and others) [id number] 2009 Unknown FOR LIFE [id number] 2009-Present [phone] [address] [place] [address] Indemnity [id number] .7.3.936331.[facility] 1945 Unknown [id number] 2.16.840.1.702561.3.579.2 .627 Unknown [id number] 2.16.840.1.663438.3.579.2 .462 Unknown [id number] 2.16.840.1.110810.3.579.2 .462 Unknown [id number] 2.16.840.1.167283.3.579.2 .462 Unknown [id number] 2.16.840.1.493716.3.579.2 .462 Unknown [id number] 2..840.1.174338.3.579.2 .462 Unknown [id number] 2.16.840.1.919693.3.579.2 .462 Unknown [id number] 2.840.1.494133.3.579.2 .462 Unknown [id number] 2.840.1.628135.3.579.2 .462 Unknown [id number] 2.840.1.672971.3.579.2 .462 Unknown [id number] 2.840.1.471702.3.579.2 .462 Unknown [id number] 2.840.1.178751.3.579.2 .462 Unknown [id number] 2.840.1.971070.3.579.2 .462 Unknown [id number] 2.840.1.840238.3.579.2 .462 Unknown [id number] 2.840.1.794467.3.579.2 .462 Unknown [id number] 2.16.840.1.116142.3.579.2 .462 Unknown [id number] 2.16840.1.900143.3.579.2 .462 Unknown [id number] 2.16.840.1.087142.3.579.2 .462 Unknown [id number] 2.16.840.1.849634.3.579.2 .462 Unknown [id number] 2.16.840.1.763696.3.579.2 .462 Unknown [id number] 2.16.840.1.499073.3.579.2 .462 Unknown [id number] 2.16.840.1.305554.3.579.2 .462 Unknown [id number] 2.16.840.1.983445.3.579.2 .462 Unknown [id number] 2.840.1.193952.3.579.2 .462 Unknown [id number] 2.840.1.381492.3.579.2 .462 Unknown [id number] 2.840.1.815852.3.579.2 .462 Unknown [id number] 2.840.1.426764.3.579.2 .462 Unknown [id number] 2.840.1.309155.3.579.2 .462 Unknown [id number] 2.840.1.260585.3.579.2 .462 Unknown [id number] 2.840.1.350764.3.579.2 .462 Unknown [id number] 2.840.1.374987.3.579.2 .462 Unknown [id number] 2.840.1.391519.3.579.2 .462 Unknown [id number] 2.840.1.400522.3.579.2 .462 Unknown [id number] 2.840.1.870864.3.579.2 .462 Unknown [id number] 2.16840.1.961437.3.579.2 .462 Unknown [id number] 2.16840.1.356686.3.579.2 .462 Unknown [id number] 2.840.1.192371.3.579.2 .462 Unknown [id number] 2.16.840.1.544931.3.579.2 .462 Unknown [id number] 2.16840.1.353584.3.579.2 .462 Unknown [id number] 2.16.840.1.291892.3.579.2 .462 Unknown [id number] 2.840.1.427044.3.579.2 .462 Unknown [id number] 2.16840.1.244656.3.579.2 .462 Unknown [id number] 2.840.1.664306.3.579.2 .462 Unknown [id number] 2.840.1.816472.3.579.2 .462 Unknown [id number] 2.840.1.732614.3.579.2 .462 Unknown [id number] 2.840.1.988595.3.579.2 .462 Unknown [id number] 2.840.1.448061.3.579.2 .462 Unknown [id number] 2.840.1.107768.3.579.2 .462 Unknown [id number] 2.840.1.422890.3.579.2 .462 Unknown [id number] 2.840.1.696957.3.579.2 .462 Unknown [id number] 2.840.1.165153.3.579.2 .462 Unknown [id number] 2.840.1.978925.3.579.2 .462 Unknown [id number] 2.840.1.600276.3.579.2 .462 Unknown [id number] 2.840.1.979542.3.579.2 .462 Unknown [id number] 2.840.1.751258.3.579.2 .462 Unknown [id number] 2.840.1.214282.3.579.2 .462 Unknown [id number] 2.16.840.1.008821.3.579.2 .462 Unknown [id number] 2.16.840.1.288150.3.579.2 .462 Unknown [id number] 2.16.840.1.069735.3.579.2 .462 Social History Date Type Detail Facility Start: 01-06-2021 End: 10-31-2023 Tobacco smoking status [facility] Unknown if ever smoked [facility] Start: 08-27-2013 None [facility] Start: 03-18-2014 Spouse/ Signif icant Other [facility] Start: 06-20-2014 Non-smoker [facility] Start: 1945 Sex Assigned At Male [facility] Start: 04-05-2022 End: 05-04-2025 Tobacco smoking status MOIS Ex-smoker [facility] Work Phone: History of tobacco use Current smoker [facility] Work Phone: History of tobacco use Cigarette Smoker [facility] Work Phone: Start: 04-05-2022 Tobacco use and exposure Former smokeless tobacco user [facility] Work Phone: Start: 1945 Sex Assigned At Not on file [facility] Start: 03-26-2022 End: 04-05-2022 Exposure to SARS-CoV-2 (event) Not sure [facility] Work Phone: Start: 04-05-2022 History of Social function [facility] Start: 04-05-2022 Tobacco use panel [facility] Start: 10-30-2024 End: 04-13-2025 Sex Male (finding) [facility] Tobacco smoking status [facility] Medical Equipment Procedure Code Equipment Code [...] FDA Start: 06-08-2023 Bunionectomy FDA Start: 06-08-2023 ([id number]) ()[id number] [id number] [id number] FDA Start: 04-09-2025 ([id number]) ()[id number] [id number] [id number] FDA Start: 04-09-2025 ([id number]) ()[id number] [id number] 1)[id number] FDA Start: 04-09-2025 Goals Date Patient Goal Desired Activity /State Functional Status Date Assessment Result Facility 05-05-2025 Functional status Chair [facility] Work Phone: 04-28-2025 Functional status Ambulates;Bath room Privilege [facility] Work Phone: 04-27-2025 Functional status Ambulates;Bath room Privilege [facility] Work Phone: 04-23-2025 Functional status Ambulates;Chair [facility] Work Phone: 04-19-2025 Functional status Bedrest [facility] Work Phone: 04-12-2025 Functional status Chair [facility] Work Phone: 04-10-2025 Functional status Stand and pivot [facility] Work Phone: 03-09-2025 Functional status Chair [facility] Work Phone: Mental Status Date Assessment Result Facility 05-04-2025 Cognitive function Drowsy [facility] Work Phone: 04-28-2025 Cognitive function Voice/Name [facility] Work Phone: 04-27-2025 Cognitive function Voice/Name [facility] Work Phone: 04-23-2025 Cognitive function Voice/Name [facility] Work Phone: 04-19-2025 Cognitive function Awake;Alert;A ppropriate;Follo ws Commands [facility] Work Phone: 04-18-2025 Cognitive function Voice/Name [facility] Work Phone: 04-17-2025 Cognitive function Appropriate;Cooperativ e [facility] Work Phone: 04-12-2025 Cognitive function Voice/Name [facility] Work Phone: 04-10-2025 Cognitive function Voice/Name [facility] Work Phone: 04-05-2025 Cognitive function Awake;Alert;A ppropriate;Follo ws Commands [facility] Work Phone: 03-09-2025 Cognitive function Voice/Name [facility] Work Phone: 06-08-2023 Cognitive function Voice/Name [facility] Work Phone: 12-30-2022 Cognitive function Level Of Cons ciousness Awake;Alert;Appropriate;Follo ws Commands [facility] Work Phone: 04-28-2022 Cognitive function Voice/Name [facility] Work Phone: 04-14-2022 Cognitive function Level Of Cons ciousness Awake;Appropriate;Follows Commands;Drowsy [facility] Work Phone: Clinical Notes 04-05-2022 to 05-12-2025 Note Date & Type Note Facility 05-12-2025 Note [facility] 05-12-2025 Note [facility] 05-04-2025 Consult note Note Date/Time May 04, 2025 5:14pm [facility] Medical Records Department [address] [facility] [place] [address] Anesthesia Postop Eval II 05/04/25 1714 MR#: [id number] Acct: [id number] Name: PEDRO HILLMAN Rep #:[id number] : 1945 80 From: Joby Desir MD PCP: Dr. Toino Fajardo, DO Status:REG [facility] Y Race: C Location: [place] [address] Anesthesia Postop Eval I Sum Postop Eval Completion status Anesthesia document: Postop Eval 1 completed: Yes Anesthesia Postop Eval I Summary Anesthesia Postop Eval I Summary: Anesthesia Postop Eval I: Assessment Summary Airway patent Yes 05/04/25 16:35 DROP BOARD MAN.TDOB Spontaneous unlabored Yes 05/04/25 16:35 [employer] BOARD MAN.TDOB respirations Mental status Asleep 05/04/25 16:35 [employer] BOARD [employer].TDOB nausea No 05/04/25 16:35 [employer] BOARD [employer].TDOB Vomiting No 05/04/25 16:35 [employer] BOARD MAN.TDOB Anesthesia Postop Eval I: Fluid Summary Crystalloid volume administer 100 05/04/25 16:35 DROP BOARD MAN.TDOB (ml) Colloids volume administered ( ml) Blood Product volume administered (ml) Total IV fluid infused 100 05/04/25 16:35 DROP BOARD MAN.TDOB Anesthesia Postop Eval I: Summary Notes Anesthesia Complication No 05/04/25 16:35 DROP BOARD MAN.TDOB Anesthesia Complication Comment: Post-operative progress note Anesthesia: Postop Eval II Evaluation Mental status: Awake Pain Level: 0 nausea: No Vomiting: No 05/04/25 1714 <Electronically signed by Joby Desir MD > Date _ Joby Desir MD Cosigner Signature: Date CC: ~ Signed [facility] Work Phone: 1(211) 163-326009-15-2025 Consult note Author Peace Hicks [facility] Note Date/Time May 04, 2025 4:35pm [facility] Medical Records Department [address] [place] [address] Anesthesia Postop Eval I 05/04/25 1634 MR#: [id number] Acct: [id number] Name: PEDRO HILLMAN Nora Rep #:[id number] : 1945 80 From: Peace Ovalle PCP: Dr. Tonio Fajardo, DO Status:REG [facility] Y Race: C Location: [place] [address] Anesthesia: Postop Eval I Current Vital Signs [...] document: Postop Eval 1 completed: Yes 05/04/25 8159 <Electronically signed by Peace FALCON> Date _ Peace Hicks DROP BOARD MAN Cosigner Signature: Date CC: ~ Signed [facility] Work Phone: 1(390) 709-436409-15-2025 History and physical note Author Jakob Friend [facility] Note Date/Time May 04, 2025 4:09pm [facility] Medical Records Department [address] [place] [address] History & Physical Exam 05/04/25 1606 MR#: [id number] Acct: [id number] Name: PEDRO HILLMAN Rep #:[id number] : 1945 80 From: Jakob Goddard DO PCP: Dr. Tonio Fajardo, DO Status:REG [facility] Location: [place] [address] HPI - General General Date of Admission: 05/04/25 Date of Service: 05/04/25 Chief Complaint: Anemia HPI Narrative PEDRO HILLMAN, is a 80-year-old white male was seen in the emergency room at [facility] after sustaining a syncopal episode and TCU [...] cells. I was consulted for his anemia. [facility] Medical History Orthostatic hypotension Syncope Presence of cardiac pacemaker Peripheral arterial disease Other persistent atrial fibrillation New onset atrial flutter DIMA Wears hearing aid in both ears Former smoker Coronary artery disease Peripheral vascular occlusive disease BPH (benign prostatic hyperplasia) Chronic kidney disease, stage 3 Atherosclerosis of coronary artery of tangirnaq heart without angina pectoris Hyperlipidemia Lower extremity [...] platelet 04/05/25 05/03/25 History OXYGEN - Supplemental ([facility] 04/09/25 Unknown History INFORMATIONAL USE ONLY) [...] (if applicable): CC: Dr. Tonio Fajardo DO; Jakob Goddard DO~ Signed [facility] Work Phone: 1(268) 674-157509-15-2025 Consult note Author Joby Desir [facility] Note Date/Time May 04, 2025 2:46pm [facility] Medical Records Department [address] [place] [address] Pre-Anesthesia Evaluation 05/04/25 1446 MR#: [id number] Acct: [id number] Name: PEDRO HILLMAN Rep #:[id number] : 1945 80 From: Joby Desir MD PCP: Dr. 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 Hx Hospitalization Yes 05/04/25 13:30 Any Problems [...] take am of surgery PONV PONV - 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: PONV - 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 Female No 05/04/25 13:30 HX of Motion [...] 05/01/25 09:48 Respiratory Assessment Respiratory Assessment - 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: Respiratory Tract Infection Hx - 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 Hx Respiratory Tract Infection No 05/04/25 13:30 STOP Sleep Apnea STOP Sleep Apnea - 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: STOP Sleep Apnea - 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 Hx Hypertension No 05/04/25 13:30 Hx Sleep [...] Tobacco Use History Tobacco Use History - 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: Tobacco Use History - 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 Tobacco Use Smoking Status Former smoker 05/04/25 13:30 Hx Tobacco Use Yes: stopped in aug 2012 05/04/25 13:30 Years Smoking Packs Smoked per Day Smoking Cessation Date was Yes - quit smoking within 15 05/04/25 13:30 within the last 15 years years Hx Smoking Cessation Date Hx Smoking Cessation No 05/04/25 13:30 Counseling Hematologic Medial History Hematologic Hx - 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: 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 05/04/25 1446 <Electronically signed by Joby Desir MD > Date _ Joby Desir MD Cosigner Signature: Date CC: ~ Signed [facility] Work Phone: 1(673) 558-774509-15-2025 Procedure [facility] 05-04-2025 Procedure [facility]09-15-2025 [facility]09[facility]09[facility]09-04-2025 Progress [facility] Note Date/Time April 23, 2025 3:14pm [facility] Medical Records Department [address] [place] [address] Progress Note - Hospitalist 04/23/25 1512 MR#: [id number] Acct: [id number] Name: PEDRO HILLMAN Rep #:[id number] : 1945 80 From: Tonio Mccallum DO PCP: Dr. Tonio Fajardo DO Status:ADM IN Location: [place] [address]- Reason for Visit Chief Complaint: Syncopal episode [...] 04/20/25 14:15 RMA (Rec: 04/20/25 14:16 RMA [id number]) Nutrition Malnutrition Evidence of Yes Malnutrition Exists [...] will be given to the patient with Octapoly. Nutritional services is participating inhis care Total clinical time spent by myself addressing the patient's medical issues, reviewing all of his data, and collaborating with the patient's care team: 35 minutes Charges/Coding Visit Charges Inpatient E&M: 59175 Subs Hosp L2 04/23/25 1514 <Electronically signed by Tonio Mccallum DO> Cosigner Signature (if applicable): CC: ~ Signed [facility] Work Phone: 1(916) 348-903509-04-2025 [facility]09-04-2025 Hospital Discharge instructionsAdditional Instructions Monitor blood pressure closely, it may be necessary to cut back or discontinue midodrine and/or Florinef Date of Discharge: 04/23/25[facility] Work Phone: 1(490) 683-353109-03-2025 Progress note Author [facility] Note Date/Time April 22, 2025 6:27pm [facility] Medical Records Department [address] [place] [address] Progress Note - Hospitalist 04/21/251910 MR#: [id number] Acct: [id number] Name: PEDRO HILLMAN Rep #:[id number] : 1945 80 From: Tonio Mccallum DO PCP: Dr. Tonio Fajardo, Status:ADM IN Location: [place] [id number]- 1 Reason for Visit Chief Complaint: Syncopal episode Subjective Subjective Patient was seen and examined today, patient felt lightheaded when he got up to move around with physical therapy, I elected to place him on midodrine today andreevaluate him tomorrow. I will continue his IV fluid and hopefully he will be [facility]. Patient stated this morning that he [...] 04/20/25 14:15 RMA (Rec: 04/20/25 14:16 RMA [id number]) Nutrition Malnutrition Evidence of Yes Malnutrition Exists [...] 35 minutes Charges/Coding Visit Charges Inpatient E&M: 00273 Subs Hosp L2 04/22/25 1827 <Electronically signed by Tonio Mccallum DO> Cosigner Signature (if applicable): CC: ~ Signed [facility] Work Phone: 1(974) 908-113509-02-2025 Note. MICRO - Microbiology PROCEDURE: Fungal Culture [...] *1: This test was performed at: [address], [facility] , [facility]09-01-2025 Progress note Author [facility] Note Date/Time April 20, 2025 6:18pm [facility] Medical Records Department [address] [place] [address] Progress Note - Hospitalist 04/20/25 1811 MR#: [id number] Acct: [id number] Name: PEDRO HILLMAN Rep #:[id number] : 1945 80 From: Tonio Mccallum DO PCP: Dr. Tonio Fajardo DO Status:ADM IN Location: [place] [id number]- Reason for Visit Chief Complaint: Syncopal episode [...] 04/20/25 14:06 04/20/25 14:06 04/20/25 14:06 04/20/25 14:04/20/25 14:04/20/25 14:06 04/20/25 14:06 FiO2 2 04/19/25 21:50 [...] 04/20/25 14:15 RMA (Rec: 04/20/25 14:16 RMA [id number]) Nutrition Malnutrition Evidence of Yes Malnutrition Exists [...] 35 minutes Charges/Coding Visit Charges Inpatient E&M: 61010 Subs Hosp L2 04/20/258 <Electronically signed by Tonio Mccallum DO> Cosigner Signature (if applicable): CC: ~ Signed [facility] Work Phone: 1(604) 468-879609-01-2025 Note. MICRO - Microbiology PROCEDURE: Culture Body [...] Locations *1: This test was performed at: [facility], [address] [place] [address], [address]- , [facility]08-31-2025 [facility]08-31-2025 History and physical note Author Kwaku Narayanan [facility] Note Date/Time April 19, 2025 2: 22pm [facility] Medical Records Department [address] [place] [address] H&P Exam - Hospitalist 04/19/25 1031 MR#: [id number] Acct: [id number] Name: PEDRO HILLMAN Rep #:[id number] : 1945 80 From: Kwaku santiago DO PCP: Dr. Tonio Fajardo, DO Status:ADM FELICIANO Location: [place] [address] HPI - General General Date of Admission: 04/19/25 Date of Service: 04/19/25 Chief Complaint: Syncopal episode HPI Narrative PEDRO HILLMAN, is a 80 M who presented to [facility] ED on 04/19/2025 from the TCU for [...] COPD exacerbation. He was then transferred to [facility] for further management. There he had an [...] currently. Will be admitted for further management. [facility] Medical History (Updated 04/19/25 @ 14:[address] Kwaku Narayanan, DO) Presence of cardiac pacemaker Peripheral arterial disease Other persistent atrial fibrillation New onset atrial flutter COVID Wears hearing aid in both ears Former smoker Coronary artery disease Peripheral vascular occlusive disease BPH (benign prostatic hyperplasia) Chronic kidney disease, stage 3 Atherosclerosis of coronary artery of tangirnaq heart without angina pectoris Hyperlipidemia Lower extremity [...] hr (Mucinex) #20 tabs OXYGEN - Supplemental ([facility] 04/09/25 Unknown History INFORMATIONAL USE ONLY) [...] 75.0 H, Lymph % (Auto) 9.1 L, Sabine % (Auto) 11.3 H, Eos % (Auto) [...] Reading Location: [facility] Assessment & Plan Assessment/Plan (1) Syncope: (2) Orthostatic hypotension: PLAN: Plan Patient is an 80-year-old male who presented to [facility] ED on04/19/2025 from the TCU for syncope. [...] home oxygen on admit. Recent hospitalization at [facility] from 04/12-04/17 for right sided hydropneumothorax, community-acquired [...] Toprol 25 mg twice daily during recent [facility] admission but given his presyncopal symptoms here [...] 78 minutes. Charges/Coding Visit Charges Inpatient E&M: 72304 Init Hosp L3 04/19/25 1422 <Electronically signed by Kwaku Narayanan DO> Cosigner Signature (if applicable): CC: Dr. Kwaku Narayanan, ; Dr. Tonio Fajarod DO~ Signed [facility] Work Phone: 1(347) 837-881708-31-2025 Discharge summary Author Casper Iniguez [facility] Note Date/Time April 19, 2025 10 :43am [facility] System Medical Records Department [address] [place] [address] Emergency Department Summary 04/19/25 MR#: [id number] Acct: [id number] Name: PEDRO HILLMAN Rep #:[id number] : 1945 80 From: Casper Pyle PCP: Dr. Tonio Fajardo DO Status:REG ER Location: ED HPI History of Present Illness Chief [facility]: [facility] Medical History Presence of cardiac pacemaker Peripheral arterial disease Other persistent atrial fibrillation New onset atrial flutter COVID Wears hearing aid in both ears Former smoker Coronary artery disease Peripheral vascular occlusive disease BPH (benign prostatic hyperplasia) Chronic kidney disease, stage 3 Atherosclerosis of coronary artery of tangirnaq heart without angina pectoris Hyperlipidemia Lower extremity [...] hr (Mucinex) #20 tabs OXYGEN - Supplemental ([facility] 04/09/25 Unknown History INFORMATIONAL USE ONLY) [...] Notes his pacemaker was placed recently at [facility]. Denies any pain over pacemaker site. REVIEW [...] records reviewed: Pacemaker was placed here with [facility] on 04/09/[address] Hsu Reviewed prior [...] - Noted patient safe to stay at [facility]. States he should be able to evaluate [...] to PCU This note was generated with [employer] software. It may contain incorrectwords, spelling, and [...] 75.0 H Lymph % (Auto) 9.1 L Sabine % (Auto) 11.3 H Eos % (Auto) [...] Reading Location: [facility] Discharge Plan Triage Chief Complaint: Syncope ED [...] Qty: 60 0RF (DME) OXYGEN - Supplemental ([facility] INFORMATIONAL USE ONLY) Gas See Rx Instructions .ROUTE Patient Comments: 2 lpm at rest, 3 lpm on exertion, 2 lpm at HS DME company: [facility] Rx Instructions: As directed ipratropium-albuterol 0.5 mg-3 [...] DO [Primary Care Provider] - Print Language: Trinidadian What to do if you have Problems For any increased pain, shortness of breath, bleeding, nausea or vomiting, chestpain, or any unexpected problems, contact your Primary Care Provider. Call [facility] ([phone]) or report to the closest Emergency Room. Call 911 if necessary. 04/19/25 1043 <Electronically signed by Casper Iniguez DO> Cosigner Signature (if applicable): CC: Dr. Tonio Fajardo DO ~ Signed [facility] Work Phone: 1(546) 527-986808-31-2025 Progress note Author Mukul Barbosa [facility] Note Date/Time April 19, 2025 10 :10am [facility] Medical Records Department [address] [place] [address] Progress Note - Pharmacy 04/19/25819 MR#: [id number] Acct: [id number] Name: PEDRO HILLMAN Rep #:[id number] : 1945 80 From: Mukul Barbosa PCP: Dr. Tonio Fajardo, DO Status:ADM IN Location: TCU [place] [address] Documented by User: Mukul Barbosa 04/19/25 08:39 [...] Powder 15gm Bottle TOPICAL 1 applic BID [facility] Administration Protocol Pravastatin Sodium 20 mg 04/17/25 [...] by Valdez Olivo MD> CC: ~ Signed [facility] Work Phone: 1(246) 346-767408-31-2025 Radiology Diagnostic study [facility]08-30-2025 Note. MICRO - Microbiology PROCEDURE: Blood [...] Locations *1: This test was performed at: [facility], [address] [place] [address], [address]- , [facility] [id number] Note. MICRO - Microbiology PROCEDURE: Blood Culture [...] *1: This test was performed at: [address], [facility] , [facility] [id number] History and physical note Author [facility] Note Date/Time April 18, 2025 6: 56am [facility] Medical Records Department [address] [place] [address] History & Physical Exam 04/17/251940 MR#: [id number] Acct: [id number] Name: PEDRO HILLMAN Rep #:[id number] : 1945 80 From: Vladez Olivo MD PCP: Dr. Tonio Fajardo, DO Status:ADM IN Location: TCU TCU22-1 HPI - General General Date of Admission: 04/17/25 Date of Service: 04/18/25 Chief Complaint: Here for rehabilitation. HPI Narrative PEDRO HILLMAN, is a 80 Male who presents with followin04/12/2025 [facility] ED TCU resident shortness of breath, hypoxia, tachycardia. Diagnosed with pneumothorax, pneumonia, acute on chronic HFpEF, COPD exacerbation. Transfer to [facility] 2/2 complicated pneumothorax. 04/13/2025 Admit [facility]. Ceftriaxone, Azithromycin, blood cultures, urinary antigens [...] rehabilitation, strengthening, prior to discharge home alone. [facility] Medical History (Updated 04/18/25 @ 00:01 by Background Daemon) Presence of cardiac pacemaker Peripheral arterial disease Other persistent atrial fibrillation New onset atrial flutter COVID Wears hearing aid in both ears Former smoker Coronary artery disease Peripheral vascular occlusive disease BPH (benign prostatic hyperplasia) Chronic kidney disease, stage 3 Atherosclerosis of coronary artery of tangirnaq heart without angina pectoris Hyperlipidemia Lower extremity [...] hr (Mucinex) #20 tabs OXYGEN - Supplemental ([facility] 04/09/25 Unknown History INFORMATIONAL USE ONLY) [...] Fajardo DO; Dr. Valdez Olivo MD~ Signed [facility] Work Phone: 1(345) 456-564408-29-2025 [facility]08-29-2025 Discharge summary Date of Service 04/17/2025 [...] nasal cannula presented as a transfer from [facility] for further evaluation of possible hydropneumothorax. Apparently, patient underwent pacemaker placement at [facility] last week , next day, patient was found to have pleural effusion and underwent thoracentesis and was admitted to rehab at [facility]. Patient found to have hypoxia and [...] with cardiothoracic surgery, he was transferred to [facility]. Patient admitted to hospital service, started on antibiotics with cardiothoracic surgeryand pulmonology on consultation. No plan for surgical [...] tablet)500 Milligram by mouth every day. insulin hliynwid67 unit(s) Subcutaneous daily at bedtime. metoprolol (metoprolol [...] mouth every 12 hours for 5 Days. nwafmrSKPW71 Milligram by mouth two (2) times a day for 5 Days. Follow Up Follow Up with TONIO FAJARDO DO When:Within 1-2 days Where:[address] [place] [address]- Additional Information: Please call the office to [...] by JERO ROSARIO on 04/17/2025 01:18 PM [id number] Hospital Discharge instructions Patient Education 04/17/2025 13:56:28 [...] says it is okay. General instructions Take ychj-heq-gkhdggn and prescription medicines only as told by [...] 08/06/2006 Document Revised: 07/19/2018 Document Reviewed: 07/15/2018 [employer] Patient Education 2020 [employer]. Follow Up Care 04/13/2025 00:27:18 With:Waqar [facility] [phone] Address:Unknown When:1-2 days With:TONIO FAJARDO DO Address: [address] [place] [address]- When:1-2 days Comments:Please call the office to schedule a hospital follow up appointment. [facility] 08-29-2025 Note Discharge Instructions Thank you for allowing [facility] to assist you with your healthcare needs. The following is importantdischarge information regarding your hospital visit. Your Care Team TONIO FAJARDO DO Your Diagnosis Atrial fibrillation BPH (benign prostatic hyperplasia) CAD in tangirnaq artery s/p CABG Cardiac pacemaker in situ Chronic anemia CKD (chronic kidney disease) COPD with hypoxia Diabetes Diastolic heart failure Elevated troponin HLD (hyperlipidemia) HTN (hypertension) PAD (peripheral artery disease) Peripheral neuropathy Pneumonia Right Hydropneumothorax What to do next Follow Up Appointments Follow Up with [facility] - [phone] When:Within 1-2 days Follow Up with TONIO FAJARDO DO When:Within 1-2 days Where:[address] [place] [address]- Additional Information: Please call the office to [...] says it is okay. General instructions Take dsxe-awh-htjvvgf and prescription medicines only as told by [...] Document Reviewed: 07/15/2018 Elsevier Patient Education 2020 [employer] Additional Information VACCINATE! IT SAVES LIVES! Members of the community who have not yet received the COVID-19 vaccine and would like to receive it can visit one of [facility] vaccine clinics. There are many vaccine clinic locations within the [facility]. For locations and available times, please visit https://gettheshot.coronavirus.[place].gov/. It is important to note that some COVID mobile vaccine clinics are held outdoors and may be canceled in rainy or stormy conditions. To learn more about pediatric vaccinations (ages 5-11), we invite you to visit the [facility] webpage. https://www.Narzana [employer]iess.org/pages/6785-Agvlc-Kwllqopmfvf-Xolycaahea-Aymlw-Scr stions.htmlTo learn more about the COVID-19 vaccine, we invite you to visit the CDC website for a list of frequently asked questions.https://www.cdc.gov/coronavirus/2019-ncov/vaccines/faq.html [facility] Patient Portal Access Instructions: Stay connected with your healthcare team and access your personal medical information anytime with the [facility] Patient Portal. Please follow the directions below to create your [facility] account: 1.Access the email account you provided upon registration to the hospital/physician office.2.Look for an invitation email from [facility].3.Open the email and access the invitation link: AcceptInvitation to [facility].4.Fill in the required johnson to create your account. To access your account, visit [email or web address]. Click the blue button labeled Access Patient [...] who you will allowto register on the [facility] Patient Portal for access to your information. You can also access the [facility] Patient Portal on the [facility] katia. Simply click on Patient Portal and then log into your account. If you would like to receive a full copy of your medical records, please contact the [facility] Medical Records Department by calling [phone], Sunday through Sunday between 8 a.m. and [...] Call your local pharmacy or go to http://Hotelogix/1H4If5g to find one close to you.3.Make use of household items: Use cat litter or old coffee grounds to dispose medications if other options arenot available. Mix your drugs with these household products, seal them in an airtight container andthrow it into the garbage. Call [facility]: [phone] to be sure your drugs can be [...] aware that I should contact my doctor. Patient/Drafter [employer] Signature: Date/Time: Relationship to Patient: Witness Name/Signature: Date/Time: [facility] [id number] Note Discharge Instructions Thank you for allowing [facility] to assist you with your healthcare needs. The following is importantdischarge information regarding your hospital visit. Your Care Team TONIO FAJARDO DO Your Diagnosis Atrial fibrillation BPH (benign prostatic hyperplasia) CAD in tangirnaq artery s/p CABG Cardiac pacemaker in situ Chronic anemia CKD (chronic kidney disease) COPD with hypoxia Diabetes Diastolic heart failure Elevated troponin HLD (hyperlipidemia) HTN (hypertension) PAD (peripheral artery disease) Peripheral neuropathy Pneumonia Right Hydropneumothorax What to do next Follow Up Appointments Follow Up with [facility] - [phone] When:Within 1-2 days Follow Up with TONIO FAJARDO DO When:Within 1-2 days Where:[address] [place], [place] [address]- Additional Information: Please call the office to [...] to receive it can visit one of [facility] vaccine clinics. There are many vaccine clinic locations within the [facility]. For locations and available times, please visit https://gettheshot.coronavirus.[place].gov/. It is important to note that some COVID mobile vaccine clinics are held outdoors and may be canceled in rainy or stormy conditions. To learn more about pediatric vaccinations (ages 5-11), we invite you to visit the [facility] webpage. https://www.[facility].org/pages/1131-Dkocn-Hezmgebylps-Nwaqhcnrnv-Tnpwq-Msd stions.htmlTo learn more about the COVID-19 vaccine, we invite you to visit the CDC website for a list of frequently asked questions.https://www.cdc.gov/coronavirus/2019-ncov/vaccines/faq.html [facility] Patient Portal Access Instructions: Stay connected with your healthcare team and access your personal medical information anytime with the [facility] Patient Portal. Please follow the directions below to create your [facility] account: 1.Access the email account you provided upon registration to the hospital/physician office.2.Look for an invitation email from [facility].3.Open the email and access the invitation link: AcceptInvitation to [facility].4.Fill in the required johnson to create your account. To access your account, visit [facility]/[employer]. Click the blue button labeled Access Patient Portal and then log in with the username and password that you created in the steps above. You will be able to view your test results, lab results, a summary of your visits, upcoming appointments and more. There is also a convenient messaging option where you can send secure messages to your p [employer] Insurancevider. In addition, you will have the ability to download any documents or summaries to your computer and/or send the information securely to a physician. Remember that your healthcare information is confidential, so carefully consider who you will allowto register on the [facility] Patient Portal for access to your information. You can also access the [facility] Patient Portal on the [facility] katia. Simply click on Patient Portal and then log into your account. If you would like to receive a full copy of your medical records, please contact the [facility] Medical Records Department by calling [phone], Sunday through Sunday between 8 a.m. and [...] Call your local pharmacy or go to http://Vive Nano.Pressure BioSciences/1R0Zc5p to find one close to you.3.Make use of household items: Use cat litter or old coffee grounds to dispose medications if other options arenot available. Mix your drugs with these household products, seal them in an airtight container andthrow it into the garbage. Call [facility]: [phone] to be sure your drugs can be [...] aware that I should contact my doctor. Patient/Drafter Commercial Signature: Date/Time: Relationship to Patient: Witness Name/Signature: Date/Time: [id number] Discharge summary Date of Service 04/17/2025 Discharge [...] nasal cannula presented as a transfer from [facility] for further evaluation of possible hydropneumothorax. Apparently, patient underwent pacemaker placement at [facility] last week , next day, patient was found to have pleural effusion and underwent thoracentesis and was admitted to rehab at [facility]. Patient found to have hypoxia and [...] with cardiothoracic surgery, he was transferred to [facility]. Patient admitted to hospital service, started [...] tablet)500 Milligram by mouth every day. insulin upttvexo61 unit(s) Subcutaneous daily at bedtime. metoprolol (metoprolol succinate 25 mg oral TABLET extended release)0.5 tab(s) by mouth two (2) times a day. Do not crush or chew (controlled release). multivitamin with minerals (Multi-Braden)1 tab by mouth every day. oxtlugdnhjn70 Milligram by mouth once a day. SITagliptin (Januvia 50 mg oral tablet)1 tab(s) by mouth once a day. tamsulosin (tamsulosin 0.4 mg oral capsule)1 cap by mouth once a day. umeclidinium-vilanterol (Anoro Ellipta 62.5 mcg-25 mcg/inh inhalation powder)1 puff(s) by inhalation once a day. Discontinued cefdinir (cefdinir 300 mg oral capsule)1 cap by mouth every 12 hours for 5 Days. pbmursSPUN25 Milligram by mouth two (2) times a day for 5 Days. Follow Up Follow Up with TONIO FAJARDO DO When:Within 1-2 days Where:[address] [place] [address]- Additional Information: Please call the office to [...] by JERO ROSARIO on 04/17/2025 01:18 PM [facility] [id number] Note* Exam Date Time Procedure Performing Provider Status 04/17/25 7:03 AM XR Chest 1 View KRISTEN MAKI MD; Aut h (Verified) [id number] ORIGINAL EXAMINATION: ONE XRAY VIEW OF THE [...] Date: 04/17/2025 8:12:37 AM Ordering Provider: GLORIA [facility]08-28-2025 NoteORIGINAL PROCEDURE: ULTRASOUND GUIDED THORACENTESIS CLINICAL [...] performed by Olamide Gonzalez PA-C Interpreted by: iGbson Reina MD Preliminary Report By: Olamide Gonzalez PA-C Electronically signed By Gibson Reina MD Dictated Date: 04/15/2025 1:19:39 PM Prelim Date: 04/15/2025 1:20:18 PM Sign Date: 04/16/2025 5:19:34 PM Ordering Provider: [facility] [id number] Note Date of Service 04/16/2025 Chief Complaint [...] nasal cannula presented as a transfer from [facility] for further evaluation of possible hydropneumothorax. Apparently, patient underwent pacemaker placement at [facility] last week , next day, patient was found to have pleural effusion and underwent thoracentesis and was admitted to rehab at [facility]. Patient found to have hypoxia and [...] with cardiothoracic surgery, he was transferred to [facility]. Patient admitted to hospital service, started [...] fibrillation BPH (benign prostatic hyperplasia) CAD in tangirnaq artery s/p CABG Cardiac pacemaker in situ [...] by weight. [facility] hopefully next 24-48 hours if he [...] GLORIA DAVIS MD on 04/16/2025 01:33 PM [facility] HospitalNorlbqba27-57-8732 Pulmonary Consult note Date of Service 04/16/2025 [...] The patient underwent a thoracentesis here at [facility] showing undetectable protein and a slightly [...] fibrillation BPH (benign prostatic hyperplasia) CAD in tangirnaq artery s/p CABG Cardiac pacemaker in situ [...] fibrillation BPH (benign prostatic hyperplasia) CAD in tangirnaq artery Cardiac pacemaker in situ Chronic anemia [...] ABBI CARMEN MD on 04/16/2025 01:14 PM [facility] [id number] Note. MICRO - Microbiology PROCEDURE: Acid Fast Bacilli Culture w Stain if Ind [*1] SOURCE: Thoracentesis Fluid BODY SITE: COLLECTED DATE/TIME: 04/15/2025 08:52 EDT RECEIVED DATE/TIME: 04/15/2025 14:18 EDT START DATE/TIME: 04/15/2025 14:18 EDT FREE TEXT SOURCE: STAINS AFS [] Verified Date/Time/Personnel: 04/16/2025 12:33 EDT Acid Fast Smear from Concentrated Specimen: Negative Performing Locations *1: This test was performed at: [facility], [address] [place] [address], [id number]- , [facility]08-28-2025 Nurse Progress note I was ambulating [...] by [place] Sanchez on 04/16/2025 10:23 AM [facility] HospitalAywhuxhs02-19-9300 Note Date of Service 04/15/2025 Chief Complaint [...] nasal cannula presented as a transfer from [facility] for further evaluation of possible hydropneumothorax. Apparently, patient underwent pacemaker placement at [facility] last week , next day, patient was found to have pleural effusion and underwent thoracentesis and was admitted to rehab at [facility]. Patient found to have hypoxia and [...] with cardiothoracic surgery, he was transferred to [facility]. Patient admitted to hospital service, started [...] fibrillation BPH (benign prostatic hyperplasia) CAD in tangirnaq artery s/p CABG Cardiac pacemaker in situ [...] by weight. Plan for discharge back to [facility] facility once medically stable. No family at [...] GLORIA DAVIS MD on 04/15/2025 04:24 PM [facility] HospitalXmtcfkoa49-72-3429 Note* Exam Date Time Procedure Performing Provider Status 04/15/25 11:36 AM XR Chest 1 View SHAHBAZ FOLEY MD; Aut h (Verified) [id number] ORIGINAL EXAMINATION: ONE XRAY VIEW OF THE [...] 04/15/2025 11:43:46 AM Ordering Provider: OLAMIDE GONZALEZ [facility] [id number] Note* Exam Date Time Procedure Performing Provider Status 04/15/25 11:35 AM US Thoracentesis Right GIBSON REINA; Auth (Verified) [id number] ORIGINAL PROCEDURE: ULTRASOUND GUIDED THORACENTESIS CLINICAL STATEMENT: [...] Sign Date: 04/16/2025 5:19:34 PM Ordering Provider: [facility]08-27-2025 Note US Procedure Record Summary Primary Physician: OLAMIDE GONZALEZ PA-C Finalized Date/Time: 04/15/25 11:32:18 Pt. Name: KADYPEDRO/Sex: 1945 Male Med Rec #: [id number] Physician: DAVID STERLING MD Financial #: [id number] Pt. Type: I Room/Bed: [facility]/A Admit/Disch: 04/13/25 05:27:00 - Institution: Allergies identified in patient's electronic medical record at time of printing on 04/15/25 Entry 1 Substance ibuprofen Reaction Type Allergy Last Modified By: KHURRAM Merchant 04/13/25 06:04:52 Case Attendance- US Entry 1 Entry 2 Case Attendee OLAMIDE GONZALEZ Lauren M PA-C Role Performed Primary Surgeon Project Control Manager Details Time In 04/15/25 11:08:00 04/15/25 11:08:00 [...] Data- US Entry 1 Case Information Room [facility] Receiving Case Level IR Level 2 Wound [...] instrumentation, sponges, or sharps). Outcomes Met? Yes Acid Etch Operator OLAMIDE GONZALEZ PA-C Procedure Plan Last Modified By: Michaela Barnard 04/15/25 11:16:00 Radiology Lines and Procedures- US Entry 1 Radiology Sedation Case Times Sedation Total Time 0 Radiology - Fluid/Drainage Fluid Amount mL: 1000 ml Fluid Description sheldon RAD - US [place], Guidewires, Cath.... Catheters OneStep Catheter 5 Fr [...] Signatures Signed By: Michaela Barnard 04/15/25 11:32 [facility] HospitalSlgvchct32-72-1916 NoteBody Fluid Path ReviewNegative for malignant cells. [...] post permanent pacemaker insertion on 04/09/2025 on [facility], former smoker, BPH, chronic kidney disease stage III, hyperlipidemia, diabetes, peripheral neuropathy, chronic anemia, hypertension, CAD status post CABG (6 years ago), diastolic heart failure, and COPD (wears 3 L nasal cannula at home). He underwent insertion of a left sided permanent pacemaker on , 04/09/2025 at [facility]. The following day, he had a chest x-ray completed revealing a right pleural effusion and underwent a thoracentesis(amount of volume removed unknown). He was discharged to [facility] same day. While at rehab facility, he was noted to be hypoxic and tachycardic and a chest x-ray was completed showing aright pneumothorax. He was taken to [facility] emergency room where he was further evaluated [...] on 100% nonrebreather mask, and transferred to [facility] for further evaluation. Cardiothoracic surgery [...] Hydropneumothorax CT of the chest completed at [facility] on 04/12/2025 showing right loculated hydropneumothorax with [...] Pneumonia CT of the chest completed at [facility] on 04/12/2025 showed apical and some subpulmonic [...] anemia 13. HTN (hypertension) 14. CAD in tangirnaq artery s/p CABG 15. Diastolic heart failure 16. COPD with hypoxia 48 minutes of independent KATIA time spent obtaining past medical history from EMR, conducting [facility] to request CT of the chest imaging, completing otyk-rf-kmtc visit with patient at bedside, obtaining physical exam, and dictating details of today's consultation. Problem List/Past Medical History Ongoing Atrial fibrillation BPH (benign prostatic hyperplasia) CAD in tangirnaq artery Cardiac pacemaker in situ Chronic anemia [...] by COLLEEN DOE on 04/13/2025 03:08 PM [facility] HospitalZacbptrn54-31-4823 Note* Exam Date Time Procedure Performing Provider Status 04/15/25 6:48 AM XR Chest 1 View LEVI MARCIAL MD; Auth (Verified) [id number] ORIGINAL EXAMINATION: ONE XRAY VIEW OF THE [...] Sign Date: 04/15/2025 7:22:03 AM Ordering Provider: GLORAI YVONNESarah [facility] HospitalMkzkgxrn89-04-1662 Note* Exam Date Time Procedure Performing Provider Status 04/14/25 9:03 PM Electrocardiogram - EKG - CV BRAYAN BOWDEN MD; Auth (Verified) ECG Final Report SINUS TACHYCARDIA VENTRICULAR PREMATURE COMPLEX RIGHT BUNDLE BRANCH BLOCK Electronic Signature: BRAYAN FRANCO MD 04/15/2025 22:51:41 [facility] HospitalCbgpcaim45-17-5474 Note Date of Service 04/14/2025 Chief Complaint [...] fibrillation BPH (benign prostatic hyperplasia) CAD in tangirnaq artery s/p CABG Cardiac pacemaker in situ [...] as of now. Discussed with cardiothoracic surgery [employer]. Will give one-time dose of IV Lasix [...] for now. Plan for discharge back to [facility] facility once medically stable. Note was dictated [...] GLORIA DAVIS MD on 04/14/2025 04:44 PM [facility] [id number] Note. MICRO - Microbiology PROCEDURE: Legionella Urine [...] Locations *1: This test was performed at: [facility], [address] [place] [address], [id number]08-26-2025 Note. MICRO - [...] Locations *1: This test was performed at: [facility], [address] [place] [address], [id number] [place], [place] [id number] Note* Exam Date Time Procedure Performing Provider Status 04/14/25 6:55 AM XR Chest 1 View LEVI MARCIAL MD; Auth (Verified) [id number] ORIGINAL EXAMINATION: ONE XRAY VIEW OF THE [...] 04/14/2025 7:00:29 AM Ordering Provider: COLLEEN DOE [facility] HospitalRmtkeseu75-82-4126 History and physical note [facility] Hospitalist History and Physical Date of Admission: patient is being admitted on April 13, 2025 Chief complaint: pneumothorax History of present illness: History was taken from talking with the emergency room physician at [facility] as well as talking with the patient. [...] the patient had a pacemaker placed at [facility]. On Sunday of this past week the patient was found to have pleural effusion and had a thoracentesis. The patient was admitted to rehab at [facility]. Yesterday the patient had episodes of hypoxia [...] CT chest without contrast showed right loculated [place] pneumothorax of estimated 15% of the right thoracic volume occupied by air. Patches of dense consolidating right pneumonia. Sizable peripheral blebs and honeycombing in the left mid and base. Prior to transfer they did discuss the case with cardiothoracic surgery generation manager and the patient wasgiven vancomycin and Zosyn. [...] Vitals Signs(Last 24 hrs)__Last Charted Minimum Maximum [id number](APR 13 05:28)135(APR 13 05:28)135(APR 13 05:28) DBP78(APR 13:)78(APR 13:28)78(APR 13:28) Physical examination: HEENT: No Pallor, No Icterus Cardiac: tachycardia, No murmur Lungs: diffuse crackles in respiratory stress Abdomen: Soft Non tender Musculoskeletal: No joint pains or swelling Extremities: No edema, good pulses Neurological: Alert, no deficits Skin: No rash, no nodules Labs: as mentioned in the HPI. Assessment and plan: Patient presents from [facility] on April 13, 2025 due to having [...] DAVID STERLING MD on 04/13/2025 05:49 AM [facility] HospitalUwsgyoas37-53-3755 Respiratory therapy Hospital Progress note Respiratory Therapy [...] Therapeutic interchange, discontinue future evaluations Summer Hankins - 04/13/2025 16:09 EDT Surgical Status : [...] by Summer Hankins on 04/13/2025 04:09 PM [facility] HospitalIqrnores59-00-0457 Cardiothoracic surgery Consult note Date of Service [...] sided permanent pacemaker on , 04/09/2025 at [facility]. The following day, he had a chest x-ray completed revealing a right pleural effusion and underwent a thoracentesis(amount of volume removed unknown). He was discharged to [facility] same day. While at rehab facility, he was noted to be hypoxic and tachycardic and a chest x-ray was completed showing aright pneumothorax. He was taken to [facility] emergency room where he was further evaluated [...] on 100% nonrebreather mask, and transferred to [facility] for further evaluation. Cardiothoracic surgery [...] Hydropneumothorax CT of the chest completed at [facility] on 04/12/2025 showing right loculated hydropneumothorax with [...] Pneumonia CT of the chest completed at [facility] on 04/12/2025 showed apical and some subpulmonic [...] anemia 13. HTN (hypertension) 14. CAD in tangirnaq artery s/p CABG 15. Diastolic heart failure 16. COPD with hypoxia 48 minutes of independent KATIA time spent obtaining past medical history from EMR, conducting [facility] to request CT of the chest imaging, completing klaf-eq-bjds visit with patient at bedside, obtaining physical exam, and dictating details of today's consultation. Problem List/Past Medical History Ongoing Atrial fibrillation BPH (benign prostatic hyperplasia) CAD in tangirnaq artery Cardiac pacemaker in situ Chronic anemia [...] by COLLEEN DOE on 04/13/2025 03:08 PM [facility] HospitalRiqhcuxw87-48-5376 Note* Exam Date Time Procedure Performing Provider Status 04/13/25 2:42 PM XR Chest 1 View MÓNICA ZALDIVAR [facility] (Verified) [id number] ORIGINAL EXAMINATION: ONE XRAY VIEW OF THE [...] 04/13/2025 2:58:50 PM Ordering Provider: COLLEEN DOE [facility] HospitalElfzgcdq14-81-2698 Evaluation + Plan noteExtracted from: Title:Clinical Document Author:DAVID STERLING MD Date:04/13/25 [facility] Medicine Hospitalist History and Physical Date of Admission: patient is being admitted on April 13, 2025 Chief complaint: pneumothorax History of present illness: History was taken from talking with the emergency room physician at [facility] as well as talking with the patient. [...] the patient had a pacemaker placed at [facility]. On Sunday of this past week the patient was found to have pleural effusion and had a thoracentesis. The patient was admitted to rehab at [facility]. Yesterday the patient had episodes of hypoxia [...] CT chest without contrast showed right loculated [place] pneumothorax of estimated 15% of the right thoracic volume occupied by air. Patches of dense consolidating right pneumonia. Sizable peripheral blebs and honeycombing in the left mid and base. Prior to transfer they did discuss the case with cardiothoracic surgery generation manager and the patient was given vancomycin and [...] Vitals Signs(Last 24 hrs)__Last Charted Minimum Maximum [id number](APR 13 05:28)135(APR 13 05:28)135(APR 13 05:28) DBP78(APR 13:28)78(APR 13:28)78(APR 13 05:28) Physical examination: HEENT: No Pallor, No Icterus Cardiac: tachycardia, No murmur Lungs: diffuse crackles in respiratory stress Abdomen: Soft Non tender Musculoskeletal: No joint pains or swelling Extremities: No edema, good pulses Neurological: Alert, no deficits Skin: No rash, no nodules Labs: as mentioned in the HPI. Assessment and plan: Patient presents from [facility] on April 13, 2025 due to having [...] care with patient and family at bedside. [facility] 08-25-2025 Note Reason for Consultation Admission [...] Other: Medihoney/adaptic/foam to right knee. Betadine to [id number], and 4th toes. Eucerin cream to BLE. Education Individuals Taught: Patient Learning Readiness: Willing to learn Barriers to Learning: Acuity of illness Teaching Method: Explanation Digitally Signed by Carol Galvin RN on 04/13/2025 01:26 PM [facility] HospitalDmdhqilv43-42-5587 [facility]08-25-2025 History and physical note [facility] Hospitalist History and Physical Date of Admission: patient is being admitted on April 13, 2025 Chief complaint: pneumothorax History of present illness: History was taken from talking with the emergency room physician at [facility] as well as talking with the patient. [...] the patient had a pacemaker placed at [facility]. On Sunday of this past week the patient was found to have pleural effusion and had a thoracentesis. The patient was admitted to rehab at [facility]. Yesterday the patient had episodes of hypoxia [...] CT chest without contrast showed right loculated [place] pneumothorax of estimated 15% of the right thoracic volume occupied by air. Patches of dense consolidating right pneumonia. Sizable peripheral blebs and honeycombing in the left mid and base. Prior to transfer they did discuss the case with cardiothoracic surgery generation manager and the patient wasgiven vancomycin and Zosyn. [...] Vitals Signs(Last 24 hrs)__Last Charted Minimum Maximum EIT857(APR 13 05:28)135(APR 13 05:28)135(APR 13:28) DBP78(APR 13:28)78(APR 13 05:28)78(APR 13 05:28) Physical examination: HEENT: No Pallor, No Icterus Cardiac: tachycardia, No murmur Lungs: diffuse crackles in respiratory stress Abdomen: Soft Non tender Musculoskeletal: No joint pains or swelling Extremities: No edema, good pulses Neurological: Alert, no deficits Skin: No rash, no nodules Labs: as mentioned in the HPI. Assessment and plan: Patient presents from [facility] on April 13, 2025 due to having [...] DAVID STERLING MD on 04/13/2025 05:49 AM [facility] HospitalYnpdukbe22-82-8939 History and physical note [facility] Hospitalist History and Physical Date of Admission: patient is being admitted on April 13, 2025 Chief complaint: pneumothorax History of present illness: History was taken from talking with the emergency room physician at [facility] as well as talking with the patient. [...] the patient had a pacemaker placed at [facility]. On Sunday of this past week the patient was found to have pleural effusion and had a thoracentesis. The patient was admitted to rehab at [facility]. Yesterday the patient had episodes of hypoxia [...] CT chest without contrast showed right loculated [place] pneumothorax of estimated 15% of the right thoracic volume occupied by air. Patches of dense consolidating right pneumonia. Sizable peripheral blebs and honeycombing in the left mid and base. Prior to transfer they did discuss the case with cardiothoracic surgery generation manager and the patient wasgiven vancomycin and Zosyn. [...] Vitals Signs(Last 24 hrs)__Last Charted Minimum Maximum [id number](APR 13 05:28)135(APR 13 05:28)135(APR 13 05:28) DBP78(APR [...] HPI. Assessment and plan: Patient presents from [facility] on April 13, 2025 due to having [...] DAVID STERLING MD on 04/13/2025 05:49 AM [facility] HospitalYmyjykcc60-11-0066 Discharge summary Author Daniel Brownlee [facility] Note Date/Time April 13, 2025 12 :09am [facility] Medical Records Department [address] [place] [address] Emergency Department Summary 04/12/25 MR#: [id number] Acct: [id number] Name: PEDRO HILLMAN Rep #:[id number] : 1945 80 From: Daniel Brownlee DO [...] himself at this point in time. [facility] Medical History Presence of cardiac pacemaker Peripheral arterial disease Other persistent atrial fibrillation New onset atrial flutter COVID Wears hearing aid in both ears Former smoker Coronary artery disease Peripheral vascular occlusive disease BPH (benign prostatic hyperplasia) Chronic kidney disease, stage 3 Atherosclerosis of coronary artery of tangirnaq heart without angina pectoris Hyperlipidemia Lower extremity [...] s 04/08/25 Unknown Rx OXYGEN - Supplemental ([facility] 04/09/25 Unknown History INFORMATIONAL USE ONLY) [...] following commands knew that he was at [facility] the year is 2024 Skin: Warm, dry, [...] with a rate of 111 bpm with IN interval of 86. Patient's proBNP elevated 7022. [...] transfer giventhe complex pneumothorax. Discussed case with [facility] physician Dr. Sterling who accept patient [...] 92.5 H Lymph % (Auto) 2.5 L [place] % (Auto) 4.2 Eos % (Auto) 0.0 [...] left mid zone and base. Reading Location: [facility] Discharge Plan Triage Chief Complaint: Shortness [...] Qty: 60 0RF (DME) OXYGEN - Supplemental ([facility] INFORMATIONAL USE ONLY) Gas See Rx Instructions .ROUTE Patient Comments: 2 lpm at rest, 3 lpm on exertion, 2 lpm at HS DME company: [employer] CM Rx Instructions: As directed metoprolol succinate 25 mg tablet extended release 24 hr 12.5 mg PO BID Qty: 90 3RF Primary Care Provider: Tonio Fajardo Referrals: Tonio Fajardo DO [Primary Care Provider] - Print Language: Trinidadian Disposition Disposition: DC/Tx to Another Type of HCF What to do if you have Problems For any increased pain, shortness of breath, bleeding, nausea or vomiting, chestpain, or any unexpected problems, contact your Primary Care Provider. Call [facility] ([phone]) or report to the closest Emergency Room. Call 911 if necessary. 04/13/25 0009 <Electronically signed by Daniel Brownlee DO> Cosigner Signature (if applicable): CC: Dr. Tonio Fajardo DO ~ Signed [facility] Work Phone: 1(223) 355-826608-24-2025 Radiology Diagnostic study [facility]08-24-2025 Radiology Diagnostic study [facility]08-22-2025 History and physical note Author Valdez Geovani [facility] Note Date/Time April 10, 2025 8: 47pm [facility] Medical Records Department [address] [place] [address] History & Physical Exam 04/10/252025 MR#: [id number] Acct: [id number] Name: PEDRO HILLMAN Rep #:[id number] : 1945 80 From: Valdez Olivo MD PCP: Dr. Tonio Fajardo DO Status:ADM IN Location: [place] [address] HPI - General General Date of Admission: 04/10/25 Date of Service: 04/10/25 Chief Complaint: Here for rehabilitation. HPI Narrative PEDRO HILLMAN, is a 80 Male who presents with followin04/05/2025 [facility] ED Hypotension. Worsening productive cough, copd, [...] given. Insulin/glucose for hyperkalemia 5.8. 04/05/2025 Admit [facility]. Lasix 40mg iv bid, Magnesium, albumin [...] rehabilitation, strengthening, prior to discharge home alone. [facility] Medical History (Updated 04/10/25 @ 20:[address] Valdez Olivo MD) Presence of cardiac pacemaker Peripheral arterial disease Other persistent atrial fibrillation New onset atrial flutter COVID Wears hearing aid in both ears Former smoker Coronary artery disease Peripheral vascular occlusive disease BPH (benign prostatic hyperplasia) Chronic kidney disease, stage 3 Atherosclerosis of coronary artery of tangirnaq heart without angina pectoris Hyperlipidemia Lower extremity [...] s 04/08/25 Unknown Rx OXYGEN - Supplemental ([facility] 04/09/25 Unknown History INFORMATIONAL USE ONLY) [...] Fajardo DO; Dr. Valdez Olivo MD~ Signed [facility] Work Phone: 1(240) 257-652908-22-2025 [facility]08-22-2025 Discharge summary Author Nicola Roman [facility] Note Date/Time April 10, 2025 4: 10pm [facility] Medical Records Department [address] [place] [address] Transfer to [facility] MR#: [id number] Acct: [id number] Name: PEDRO HILLMAN Rep #:[id number] : 1945 80 From: Nicola Roman MD PCP: Dr. Tonio Fajardo DO Status:ADM IN Certification of patient admission REQUIRED AT TIME OF ADMISSION. I CERTIFY THAT POST-HOSPITAL ECF SERVICES ARE REQUIRED TO BE GIVEN ON AN IN-PATIENT BASIS BECAUSE OF THE ABOVE NAMED PATIENT'S NEED FOR [facility] CARE ON A CONTINUING BASIS FOR THE [...] treated with radiation therapy currently followed by [facility] oncology and will start 8. [...] 2RF No Action (DME) OXYGEN - Supplemental ([facility] INFORMATIONAL USE ONLY) Gas See Rx Instructions .ROUTE Patient Comments: 2 lpm at rest, 3 lpm on exertion, 2 lpm at HS DME company: [employer] Rx Instructions: As directed Referrals / Follow [...] Fajardo DO; Dr. Deric Lantigua MD ~ [facility] Work Phone: 1(901) 254-886708-22-2025 Discharge summary Author [facility] Note Date/Time April 10, 2025 4: 23pm [facility] Medical Records Department [address] [place] [address] Discharge Summary 04/10/25 1610 MR#: [id number] Acct: [id number] Name: PEDRO HILLMAN Rep #:[id number] : 1945 80 From: Nicola Roman MD PCP: Dr. Tonio Fajardo DO Status:ADM IN Location: [facility] [id number] Providers Date of Admission: 04/05/25 Date of Discharge: 04/10/25 Primary Care Physician: Dr. Tonio Fajardo DO Consultations 04/05/25 20:36 Consult: Nephrology Routine Consulting Provider: Davon Saravia Reason for Consult: CKD; stage IV with Hyperkalemia and AE CHF. EMERGENT Consult: No MD Notified: Yes Date Notified: 04/06/25 Time Notified: 06:58 Method of Notification: Answering Service 04/06/25 07:14 Consult: Onc/Wound/chart clerk Routine Comment: Reason for Consult:: burn R [...] treated with radiation therapy currently followed by [facility] oncology and will start 8. [...] BID #10 tabs 04/08/25 OXYGEN - Supplemental ([facility] INFORMATIONAL USE ONLY) 04/09/25 Physical Exam [...] (Auto) 91.6 H, Lymph % (Auto) 1.9L, Sab[place] % (Auto) 5.5, Eos % (Auto) 0.0, [...] Reading Location: [facility] Chest CT 04/10/25 07:49 IMPRESSION: Coronary artery calcification (CAC) is is present Moderate right pleural effusion with compressive atelectasis in the right lower lobe as well as airspace disease in the right upper lobe with volume loss. Small left pleural effusion with left basilar atelectasis. Findings suggestive of CHF. Reading Location: [facility] Thoracentesis Ultrasound 04/10/25 09:12 IMPRESSION: Successful diagnostic and therapeutic ultrasound-guided right thoracentesis. Laboratory results pending. Reading Location: [facility]-1 D/C Instructions Call your doctor if [...] Admit Date/Time: 04/05/25 19:55 Attending Provider: Nicola oRman Primary Care Provider: Tonio Fajardo Consulting Providers: [...] 2RF No Action (DME) OXYGEN - Supplemental ([facility] INFORMATIONAL USE ONLY) Gas See Rx Instructions .ROUTE Patient Comments: 2 lpm at rest, 3 lpm on exertion, 2 lpm at HS DME company: [employer] per CM Rx Instructions: As directed Referrals / Follow Up: Carol Sousa [Registered Nurse] - 04/21/25 10:00 am ( FOLLOW UP PACER AND WOUNDCHECK ) Tonio Fajardo DO [Primary Care Provider] - Within 1 Week Disposition Disposition (needs filled in before D/C Order can be placed): Home, Self Care Charges/Coding Visit Charges Inpatient E&M: 40229 Disch Hosp >30min 04/10/25 1623 <Electronically signed by Nicola Roman MD> Cosigner Signature (if applicable): CC: Dr. Nicola Roman MD; Dr. Tonio Fajardo DO~ Signed [facility] Work Phone: 1(788) 674-334608-22-2025 [facility]08-22-2025 Radiology Diagnostic study [facility]08-22-2025 Hospital Discharge instructionsAdditional Instructions Date of Discharge: 04/10/25[facility] Work Phone: 1(431) 149-923108-22-2025 Progress note Author Nicola Roman [facility] Note Date/Time April 10, 2025 9: 18am [facility] Medical Records Department [address] [place] [address] Progress Note - Hospitalist 04/10/25 0750 MR#: [id number] Acct: [id number] Name: PEDRO HILLMAN Rep #:[id number] : 1945 80 From: Nicola Roman MD PCP: Dr. Tonio Fajardo DO Status:ADM IN Location: [place] [address]- Reason for Visit Chief Complaint: SOB, Cough [...] (Auto) 91.6 H, Lymph % (Auto) 1.9L, Sabine % (Auto) 5.5, Eos % (Auto) 0.0, [...] Reading Location: [facility] Physical Exam Narrative S GENERAL: dyspneic at [...] treated with radiation therapy currently followed by [facility] oncology and will start 8. [...] 52 Minutes Charges/Coding Visit Charges Inpatient E&M: 51862 Subs Hosp L3 04/10/25 0918 <Electronically signed by Nicola Roman MD> Cosigner Signature (if applicable): CC: ~ Signed [facility] Work Phone: 1(768) 748-293908-22-2025 Radiology Diagnostic study [facility]08-21-2025 Radiology Diagnostic study [facility]08-21-2025 Procedure [facility]08-21-2025 Progress note Author Nicola Roman [facility] Note Date/Time April 09, 2025 11 :31am [facility] Medical Records Department [address] [place] [address] Progress Note - Hospitalist 04/09/255 MR#: [id number] Acct: [id number] Name: PEDRO HILLMAN Rep #:[id number] : 1945 80 From: Nicola Roman MD PCP: Dr. Tonio Fajardo, DO Status:ADM IN Location: [place] [address] Reason for Visit Chief Complaint: SOB, Cough [...] (Auto) 91.8 H, Lymph % (Auto) 2.8L, Sabine % (Auto) 4.7, Eos % (Auto) 0.0, [...] treated with radiation therapy currently followed by [facility] oncology and will start 8. [...] 50 Minutes Charges/Coding Visit Charges Inpatient E&M: 41905 [facility] Hosp 04/09/25 1131 <Electronically signed by Nicola Roman MD> Cosigner Signature (if applicable): CC: ~ Signed [facility] Work Phone: 1(843) 201-610208-20-2025 Consult note Author Issa Looney [facility] Note Date/Time April 08, 2025 7: 12pm [facility] Medical Records Department [address] [place] [address] Consultation - Cardiology 04/08/25 1906 MR#: [id number] Acct: [id number] Name: PEDRO HILLMAN Nora Rep #:[id number] : 1945 80 From: Issa Looney MD PCP: Dr. Tonio Fajardo, DO Status:ADM [facility] Assessment & Plan Assessment/Plan (1) [...] Artery/Lesion type: nativeartery Tribe vs. transplanted heart: tangirnaq heart Associated angina: without angina Qualified Code(s): I25.10 - Atherosclerotic heart disease of tangirnaq coronary artery without angina pectoris PLAN: He [...] has documented pauses over 8 seconds present. [facility] Medical History Peripheral arterial disease Other persistent atrial fibrillation New onset atrial flutter COVID Wears hearing aid in both ears Former smoker Coronary artery disease Peripheral vascular occlusive disease BPH (benign prostatic hyperplasia) Chronic kidney disease, stage 3 Atherosclerosis of coronary artery of tangirnaq heart without angina pectoris Hyperlipidemia Lower extremity [...] (Auto) 91.4 H, Lymph % (Auto) 3.5L, Sabine % (Auto) 4.5, Eos % (Auto) 0.0, [...] 91.4 H, Lymph % (Auto) 3.5 L, Sabine % (Auto) 4.5, Eos % (Auto) 0.0, [...] applicable): CC: Dr. Tonio Fajardo, DO~ Signed [facility] Work Phone: 1(999) 507-421708-20-2025 Consult note Author Renae Sarabia [facility] Note Date/Time April 08, 2025 6: 51pm [facility] Medical Records Department [address] [place] [address] Consultation - Nephrology 04/06/25 1153 MR#: [id number] Acct: [id number] Name: PEDRO HILLMAN Rep #:[id number] : 1945 80 From: Renae shultz [employer] PCP: Dr. Tonio Fajardo, Status:ADM IN Location: [place] [address] Assessment & Plan Assessment/Plan (1) DARIUSZ (acute [...] kidney from prior ATN after CABG at [place] March2013 (patient required hemodialysis for short period [...] kidney from prior ATN after CABG at [place] March 2013 (patient required hemodialysis for short period of time). Baseline creatinine April 2021 was around 1.5 to 1.9 mg/dL. Yesterday in the emergency room creatinine 2.57, today his creatinine is 2.52 mg/dL. Patient denies any recent nausea, vomiting or diarrhea. He does state since feeling unwell appetite has been poor. No NSAIDs. Denies any hematuria, dysuria, frequency, nocturia. [facility] Medical History Peripheral arterial disease Other persistent atrial fibrillation New onset atrial flutter COVID Wears hearing aid in both ears Former smoker Coronary artery disease Peripheral vascular occlusive disease BPH (benign prostatic hyperplasia) Chronic kidney disease, stage 3 Atherosclerosis of coronary artery of tangirnaq heart without angina pectoris Hyperlipidemia Lower extremity [...] (Auto) 79.7 H, Lymph % (Auto) 7.3L, Sabine % (Auto) 10.7 H, Eos % (Auto) [...] Clarity Clear, Urine pH 5.0, Ur Specific [place]ton 1.015, Urine Protein 100 H, Urine Glucose [...] (Auto) 81.9 H, Lymph % (Auto) 6.4L, Sabine % (Auto) 10.1 H, Eos % (Auto) [...] process cannot be reliably excluded. Reading Location: [id number] Chest X-Ray 04/06/25 04:13 IMPRESSION: Unchanged bilateral pleural effusions. Unchanged passive atelectatic airspace disease of the lower lobes. Unremarkable median sternotomy wires. Minimal decrease in pulmonary congestion/infiltrates. Enlarged cardiac silhouette. Reading [facility] 04/06/25 1226 <Electronically signed by Renae ZHONG> Cosigner Signature (if applicable): 04/08/25 3037 <Electronically signed by Davon Saravia MD> CC: Dr. Tonio Fajardo, DO~ Signed [facility] Work Phone: 1([phone]) 655-317508-20-2025 Progress note Author Renae Sarabia [facility] Note Date/Time April 08, 2025 6: 51pm [facility] Medical Records Department [address] [place] [address] Progress Note - Nephrology 04/07/25 1046 MR#: [id number] Acct: [id number] Name: PEDRO HILLMAN Rep #:[id number] : 1945 80 From: Renae shultz [employer] PCP: Dr. Tonio Fajardo, DO Status:ADM IN Location: [place] [address] Subjective Subjective Sitting in chair. No overnight [...] 92.8 H, Lymph % (Auto) 3.1 L, Sabine % (Auto) 2.5, Eos % (Auto) 0.0, [...] 12:19 IMPRESSION: NORMAL RENAL ULTRASOUND. Reading Location: [facility] Physical Exam Narrative Alert and [...] kidney from prior ATN after CABG at [place] March 2013 (patient required hemodialysis for short [...] L yesterday. No acute indication for [employer]. Renal ultrasound, normal ultrasound, no hydronephrosis. Urine [...] for hospital follow-up after hospital discharge in [place] office. Assessment and plan reviewed with Dr. Saravia. 04/07/25 1103 <Electronically signed by Renae ZHONG> Cosigner Signature (if applicable): 04/08/25 1851 <Electronically signed by Davon Saravia MD> CC: ~ Signed [facility] Work Phone: 1(915) 691-104108-20-2025 Progress note Author Nicola Roman [facility] Note Date/Time April 08, 2025 3: 41pm [facility] Medical Records Department [address] [place] [address] Progress Note - Hospitalist 04/08/25 0757 MR#: [id number] Acct: [id number] Name: PEDRO HILLMAN Rep #:[id number] : 1945 80 From: Nicola Roman MD PCP: Dr. Tonio Fajardo, DO Status:ADM IN Location: [facility] [id number]- 1 Reason for Visit Chief Complaint: SOB, [...] (Auto) 91.4 H, Lymph % (Auto) 3.5L, Sabine % (Auto) 4.5, Eos % (Auto) 0.0, [...] treated with radiation therapy currently followed by [facility] oncology and will start 7. [...] 35 Minutes Charges/Coding Visit Charges Inpatient E&M: 20109 Subs Hosp L2 04/08/25 1113 <Electronically signed [...] Cosigner Signature (if applicable): cc: ~* Signed [facility] Work Phone: 1(318) 585-157008-20-2025 Discharge summary [facility] Note Date/Time April 08, 2025 1: 45pm [facility] Medical Records Department [address] [place] [address] Discharge Summary 04/08/25 1114 MR#: [id number] Acct: [id number] Name: PEDRO HILLMAN Rep #:[id number] : 1945 80 From: Nicola Roman MD PCP: Dr. Tonio Fajardo, DO Status:ADM IN Location: [facility] [id number]- 1 Providers Date of Admission: 04/05/25 Date of Discharge: 04/08/25 Primary Care Physician: Dr. Tonio Fajardo, DO Consultations 04/05/25 20:36 Consult: Nephrology Routine Consulting Provider: Davon Saravia Reason for Consult: CKD; stage IV with Hyperkalemia and AE CHF. EMERGENT Consult: No MD Notified: Yes Date Notified: 04/06/25 Time Notified: 06:58 Method of Notification: Answering Service 04/06/25 07:14 Consult: Onc/Wound/chart clerk Routine Comment: Reason for Consult:: burn R [...] treated with radiation therapy currently followed by [facility] oncology and will start 7. [...] (Auto) 91.4 H, Lymph % (Auto) 3.5L, Sabine % (Auto) 4.5, Eos % (Auto) 0.0, [...] Self Care Charges/Coding Visit Charges Inpatient E&M: 85955 Disch Hosp >30min 08/20/25 1345 <Electronically signed by Nicola Roman MD> Cosigner Signature (if applicable): CC: Dr. Nicola Roman MD; Dr. Tonio Fajardo DO~ Signed [facility] Work Phone: 1(101) [phone] [facility]08-19-2025 Progress note Author Nicola Roman [facility] Note Date/Time April 07, 2025 11 :26am [facility] Medical Records Department [address] [place] [address] Progress Note - Hospitalist 04/07/25 1113 MR#: [id number] Acct: [id number] Name: PEDRO HILLMAN Rep #:[id number] : 1945 80 From: Nicola Roman MD PCP: Dr. Tonio Fajardo DO Status:ADM IN Location: [place] [address] Reason for Visit Chief Complaint: SOB, Cough [...] 92.8 H, Lymph % (Auto) 3.1 L, Sabine % (Auto) 2.5, Eos % (Auto) 0.0, [...] 12:19 IMPRESSION: NORMAL RENAL ULTRASOUND. Reading Location: [facility] Physical Exam Narrative S GENERAL: [...] treated with radiation therapy currently followed by [facility] oncology and will start 7. [...] 52 Minutes Charges/Coding Visit Charges Inpatient E&M: 02190 Subs Hosp L3 04/07/25 1126 <Electronically signed by Nicola Roman MD> Cosigner Signature (if applicable): CC: ~ Signed [facility] Work Phone: 1([phone]) 895-911808-18-2025 Progress note Author Deric Lantigua [facility] Note Date/Time April 06, 2025 4: 53pm [facility] Medical Records Department [address] [place] [address] Progress Note - Hospitalist 04/06/2537 MR#: [id number] Acct: [id number] Name: PEDRO HILLMAN Rep #:[id number] : 1945 80 From: Deric Smith PCP: Dr. Tonio Fajardo, DO Status:ADM IN Location: [place] [address] Reason for Visit Chief Complaint: SOB, Cough [...] (Auto) 79.7 H, Lymph % (Auto) 7.3L, Sabine % (Auto) 10.7 H, Eos % (Auto) [...] Clarity Clear, Urine pH 5.0, Ur Specific Pennington 1.015, Urine Protein 100 H, Urine Glucose [...] (Auto) 81.9 H, Lymph % (Auto) 6.4L, Sabine % (Auto) 10.1 H, Eos % (Auto) [...] pulmonary congestion/infiltrates. Enlarged cardiac silhouette. Reading Location: [place] [address] Physical Exam Narrative Seen and examined Patient [...] oxygen requirement with increasing productive cough. Patient's qzdtlgvy-tq-ixn increased O2 to 4 L. Noleg swelling. 1. Acute on chronic HFpEF: Patient is being admitted in the PCU. proBNP 4003. Chest x-ray initially shows moderate right and small left pleural effusion and atelectasis and pulmonary edema. Serial troponins 64, 62 and 60 flat and indeterminate and not indicative of ACS.2D echo 03/05 reported EF 55%, PASP 42 mmHg with moderate TR, moderate IN and mild PI. TSH normal Plan: Patient is started on furosemide 40 mg IV twice daily. Heart failure coremeasures including intake and output, fluid restriction less than 1500 mL, dailyweight monitoring, kidney and electrolytes monitoring. 2. Persistent trial flutter/atrial fib: Currently patient in sinus rhythm. On case monitor sinus rhythm 105 bpm. During previous [...] Mucinex, incentive spirometry and Pep. ABG 7.3 /71/34 on 6 L of oxygen. Bicarb in [...] (Auto) 79.7 H, Lymph % (Auto) 7.3L, Sabine % (Auto) 10.7 H, Eos % (Auto) [...] Clarity Clear, Urine pH 5.0, Ur Specific Pennington 1.015, Urine Protein 100 H, Urine Glucose [...] (Auto) 81.9 H, Lymph % (Auto) 6.4L, Sabine % (Auto) 10.1 H, Eos % (Auto) [...] 140 H Charges/Coding Visit Charges Inpatient E&M: 10418 Subs Hosp L3 04/06/25 1653 <Electronically signed by Deric Lantigua MD> Cosigner Signature (if applicable): CC: ~ Signed [facility] Work Phone: 1(409) 263-669008-18-2025 Radiology Diagnostic study [facility]08-18-2025 History and physical note Author Nicola Madison [facility] Note Date/Time April 06, 2025 6: 23am [facility] Medical Records Department [address] [place] [address] H&P Exam - Hospitalist 04/05/251917 MR#: [id number] Acct: [id number] Name: PEDRO HILLMAN Rep #:[id number] : 1945 80 From: Nicola Levy DO PCP: Dr. Tonio Fajardo DO Status:ADM IN Location: [place] [id number] HPI - General General Date of Admission: [...] patient still FULL CODE who presents to [facility] ER complaining of shortness of breath, cough [...] status expected to extend beyond 2 midnights. [facility] Medical History Peripheral arterial disease Other persistent atrial fibrillation New onset atrial flutter COVID Wears hearing aid in both ears Former smoker Coronary artery disease Peripheral vascular occlusive disease BPH (benign prostatic hyperplasia) Chronic kidney disease, stage 3 Atherosclerosis of coronary artery of tangirnaq heart without angina pectoris Hyperlipidemia Lower extremity [...] (Auto) 79.7 H, Lymph % (Auto) 7.3L, Sabine % (Auto) 10.7 H, Eos % (Auto) [...] process cannot be reliably excluded. Reading Location: [id number] Assessment & Plan Assessment/Plan (1) Acute on [...] 75 minutes. Charges/Coding Visit Charges Inpatient E&M: 64275 Init Hosp L3 04/06/25 0623 <Electronically signed by Nicola Lindsey DO> Cosigner Signature (if applicable): CC: Dr. Nicola Lindsey DO; Dr. Tnoio Fajardo DO~ Signed [facility] Work Phone: 1(279) 602-508808-18-2025 Radiology Diagnostic study [facility]08-18-2025 Discharge summary Author Ld Hayes [facility] Note Date/Time April 06, 2025 12 :36am [facility] Medical Records Department [address] [place] [address] Emergency Department Summary 04/05/25 MR#: [id number] Acct: [id number] Name: PEDRO HILLMAN Rep #:[id number] : 1945 80 From: Ld Quintero PCP: Dr. Tonio Fajardo, DO Status:ADM IN Location: [place] [address] HPI History of Present Illness Chief Complaint: Hypotension Informant: patient and family Narrative Narrative: Presents by EMS from home daughter in law present. Increasing productive cough. Chronic oxygenation of 3 L for COPD history remote history of lung cancer. Qjnvzgsj-cl-vle reports that increase his oxygen to 4 [...] CKD history. He is followed by the [facility]. Reports he was admitted 3 [...] stage 3 Atherosclerosis of coronary artery of tangirnaq heart without angina pectoris Hyperlipidemia Lower extremity [...] clinician: Hospitalist This note was generated with pr2go.com dictation software. It may contain incorrectwords, spelling, [...] 79.7 H Lymph % (Auto) 7.3 L Sabine % (Auto) 10.7 H Eos % (Auto) [...] process cannot be reliably excluded. Reading Location: [id number] Discharge Plan Dx/Rx/DC Orders Clinical Impression: CHF exacerbation, Chronic kidney disease, stage 3, Atrial flutter, Chronic anticoagulation, Hyperkalemia Disposition Disposition: Acute Care Hospital [facility] Discharge Date/Time: 04/05/25 20:38 What to do if you have Problems For any increased pain, shortness of breath, bleeding, nausea or vomiting, chestpain, or any unexpected problems, contact your Primary Care Provider. Call [facility] ([phone]) or report to the closest Emergency Room. Call 911 if necessary. 04/06/25 0036 <Electronically signed by Ld Quintero> Cosigner Signature (if applicable): CC: Dr. Tonio Fajardo DO ~ Signed [facility] Work Phone: 1(394) 879-970508-17-2025 Radiology Diagnostic study [facility]07-27-2025 Discharge summary [facility] Medical Records Department [address] [place] [address] Emergency Department Summary 03/15/25 MR#: [id number] Acct: [id number] Name: PEDRO HILLMAN Rep #:[id number] : 1945 80 From: Alex Matias MD [...] symptoms: Yes Recent Illness/Hospitalization: Yes (CHF) [facility] Medical History Other persistent atrial fibrillation New onset atrial flutter COVID Wears hearing aid in both ears Former smoker Coronary artery disease Peripheral vascular occlusive disease BPH (benign prostatic hyperplasia) Chronic kidney disease, stage 3 Atherosclerosis of coronary artery of tangirnaq heart without angina pectoris Hyperlipidemia Lower extremity [...] 4 doses of apixaban, Eliquis Print Language: Trinidadian Disposition Disposition: Home, Self Care What to do if you have Problems For any increased pain, shortness of breath, bleeding, nausea or vomiting, chestpain, or any unexpected problems, contact your Primary Care Provider. Call [facility] ([phone]) or report tothe closest Emergency Room. Call 911 if necessary. 03/15/251821 Cosigner Signature (if applicable): CC: Dr. Tonio Fajardo DO ~ Signed [facility]07-27-2025 Discharge summary Author Alex Matias [facility] Note Date/Time March 15, 2025 6:22 pm [facility] Medical Records Department [address] [place] [address] Emergency Department Summary 03/15/25 MR#: [id number] Acct: [id number] Name: PEDRO HILLMAN Rep #:[id number] : 1945 80 From: Alex Matias MD [...] symptoms: Yes Recent Illness/Hospitalization: Yes (CHF) [facility] Medical History Other persistent atrial fibrillation New onset atrial flutter COVCOLETTE Wears hearing aid in both ears Former smoker Coronary artery disease Peripheral vascular occlusive disease BPH (benign prostatic hyperplasia) Chronic kidney disease, stage 3 Atherosclerosis of coronary artery of tangirnaq heart without angina pectoris Hyperlipidemia Lower extremity [...] 4 doses of apixaban, Eliquis Print Language: Trinidadian Disposition Disposition: Home, Self Care What to do if you have Problems For any increased pain, shortness of breath, bleeding, nausea or vomiting, chestpain, or any unexpected problems, contact your Primary Care Provider. Call [facility] ([phone]) or report to the closest Emergency Room. Call 911 if necessary. 03/15/251821 <Electronically signed by Alex Matias MD> Cosigner Signature (if applicable): CC: Dr. Tonio Fajardo DO ~ Signed [facility] Work Phone: 1(876) 134-148107-27-2025 Hospital Discharge instructionsAdditional Instructions 1. Hold the next 4 doses of apixaban, Eliquis. 2. Take amoxicillin as prescribed until gone 3. Contact Dr. Vasquez's office in the morning to be seen later this week to have the pack removed.[facility] Work Phone: 1(112) 219-759607-21-2025 Consult note [facility] Medical Records Department [address] [place] [address] Counseling Note - Pharmacy 03/09/25 3495 MR#: [id number] Acct: [id number] Name: PEDRO HILLMAN Rep #:[id number] : 1945 80 From: Mala Sterling PCP: Dr. Tonio Fajardo DO Status:ADM IN [facility] Counseling Pharmacy Service has performed [...] DAILY@1730 30 days #30 caps 03/09/25 03/09/25 1457 Date _ Mala Amos Signature (if applicable): Date CC: ~ Signed [facility]07-21-2025 Discharge summary Author Deric Lantigua [facility] Note Date/Time March 09, 2025 12:5 2pm [facility] Medical Records Department [address] [place] [address] Discharge Summary 03/09/25 1251 MR#: [id number] Acct: [id number] Name: PEDRO HILLMAN Rep #:[id number] : 1945 80 From: Deric Smith PCP: Dr. Tonio Fajardo DO Status:ADM IN Location: [place] [address] Providers Date of Admission: 03/04/25 Date of Discharge: 03/09/25 Primary Care Physician: Dr. Tonio Fajardo, Consultations 03/04/25 21:21 Consult: Cardiology Routine Consulting Provider: [facility] Reason for Consult: AE CHF, [...] Code(s): I25.10 - Atherosclerotic heart disease of tangirnaq coronary artery without angina pectoris Qualifiers: Coronary Disease-Associated Artery/Lesion type: tangirnaq artery Tribe vs. transplanted heart: tangirnaq heart Associated angina: without angina Qualified Code(s): I25.10 - Atherosclerotic heart disease of tangirnaq coronary artery without angina pectoris (3) Chronic anticoagulation: Status: Acute Code(s): Z79.01 - detention (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 of anticoagulants Plan 80-year-old gentleman [...] no significant delta change. ACS ruled out. Butadiene Convertor Operator is consulted. Repeat proBNP is elevated but it does not reflect treatment response as it should not be ordered for that. Clinically patient is feeling better with improvement in shortness of breath. 2D echo 03/05 reported EF 55%, PASP 42 mmHg with moderate TR, moderate IN and mild PI. 03/06: Furosemide changed to [...] conduction. Later on irregular variable conduction on case monitor 03/06: Discussed with the chairman emeritus. Metoprolol increased to 25 mg twice daily, [...] pressure in the 90s. Discussed with the chairman emeritus. Advised to discontinue to discontinue metoprolol and [...] the CODE STATUS. 03/09: Discussed with the chairman emeritus.Patient heart rate controlled in 70s. Yesterday rate was in 80s. Patient tolerated Cardizem 30 mg every 8 hourly therefore discharged on Cardizem CD 120 mg. I called patient's fqpbjmza-is-rpr and explained the medication. Butadiene Convertor Operator felt probably does not need even [...] at the right lung base. Reading [facility] Echocardiogram 03/04/25 20:08 Interpretation Summary Moderate concentric [...] in right lung base aeration. Reading Location: [place] [address] Medications at Discharge Home Medications insulin glargine [...] 03/05/25 14:17 SB (Rec: 03/05/25 14:17 SB [id number]) Nutrition Malnutrition Evidence of Yes Malnutrition Exists [...] (Auto) 72.6 H, Lymph % (Auto) 9.7L, Sabine % (Auto) 12.1 H, Eos % (Auto) [...] Mitchell; Reinaldo Mclain; Santos Hsu; Iker Rodriguez [employer]; Leslie Arriaga PA; Tadeo Thakkar Instructions Additional [...] Self Care Charges/Coding Visit Charges Inpatient E&M: 86309 Disch Hosp >30min 03/09/25 1252 <Electronically signed by Deric Lantigua MD> Cosigner Signature (if applicable): CC: Dr. Tonio Fajardo DO; Dr. Willian Glaser MD; Dr. Deric Lantigua MD~ Signed [facility] Work Phone: 1(788) 697-198307-21-2025 Discharge summary Author Deric Lantigua [facility] Note Date/Time March 09, 2025 12:4 4pm [facility] Medical Records Department [address] [place] [address] Instructions for Home/Discharge Instructions 03/09/25 1031 MR#: [id number] Acct: [id number] Name: PEDRO HILLMAN Rep #:[id number] : 1945 80 From: Deric Smith PCP: [...] MD; RICKIE Kumari; RICKIE Cummins ~ Signed [facility] Work Phone: 1([phone]) 274-746207-21-2025 Hospital Discharge instructionsAdditional Instructions Discharge with Claudio catheter. Date of Discharge: 03/09/25[facility] Work Phone: 1([phone]) 193-232807-21-2025 Discharge summary [facility] Medical Records Department [address] [place] [address] Discharge Summary 03/09/25 1251 MR#: [id number] Acct: [id number] Name: PEDRO HILLMNA Rep #:[id number] : 1945 80 From: Deric Smith PCP: Dr. Tonio Fajardo DO Status:ADM [facility] Prov[facility] Date of Admission: 03/04/25 Date of Discharge: 03/09/25 Primary Care Physician: Dr. Tonio Fajardo DO Consultations 03/04/25 21:21 Consult: Cardiology Routine Consulting Provider: [facility] Reason for Consult: AE CHF, [...] Code(s): I25.10 - Atherosclerotic heart disease of tangirnaq coronary artery without angina pectoris Qualifiers: Coronary Disease-Associated Artery/Lesion type: tangirnaq artery Tribe vs. 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 ACS ruled out. Butadiene Convertor Operator is consulted. Repeat proBNP is elevated but it does not reflect treatment response as it should not be ordered for that. Clinically patient is feeling better with improvement in shortness of breath. 2D echo 03/05 reported EF 55%, PASP 42 mmHg with moderate TR, moderate IN and mild PI. 03/06: Furosemide changed to [...] conduction. Later on irregular variable conduction on case monitor 03/06: Discussed with the chairman emeritus. Metoprolol increased to 25 mg twice daily, Cardizem 60 mg V1dyzgso. If heart rate controlled, will switch to [...] pressure in the 90s. Discussed with the chairman emeritus. Advised to discontinue to discontinue metoprolol and [...] the CODE STATUS. 03/09: Discussed with the chairman emeritus.Patient heart rate controlled in 70s. Yesterday rate was in 80s. Patient tolerated Cardizem 30 mg every 8 hourly therefore discharged on Cardizem CD 120 mg. I called patient's rcbuwmik-uv-rch and explained the medication. Butadiene Convertor Operator felt probably does not need even [...] [facility]-1 Echocardiogram 03/04/25 20:08 Interpretation Summary Moderate [...] in right lung base aeration. Reading Location: [place] [address] Medications at Discharge Home Medications insulin glargine [...] 03/05/25 14:17 SB (Rec: 03/05/25 14:17 SB [id number]) Nutrition Malnutrition Evidence of Yes Malnutrition Exists [...] (Auto) 72.6 H, Lymph % (Auto) 9.7L, Sabine % (Auto) 12.1 H, Eos % (Auto) [...] Mitchell; Reinaldo Mclain; Santos Hsu; Iker Rodriguez [employer]; Leslie Arriaga PA; Tadeo Thakkar Instructions Additional [...] Self Care Charges/Coding Visit Charges Inpatient E&M: 54562 Disch Hosp >30min 03/09/25 1252 Cosigner Signature (if applicable): CC: Dr. Tonio Fajardo DO; Dr. Willian Glaser MD; Dr. Deric Lantigua MD~ Signed [facility]07-21-2025 [facility]07-21-2025 Discharge summary [facility] Medical Records Department [facility] [place] [address] Instructions for Home/Discharge Instructions 03/09/25 1031 MR#: [id number] Acct: [id number] Name: PEDRO HILLMAN Rep #:[id number] : 1945 80 From: Deric Smith PCP: [...] Self Care 03/09/25 1244Pmaribel Lantigua MD CC: [employer]-Estevan Rodriguez; Dr. Susan Hawley MD; Dr. Paris Tiwari MD; Dr. Marjorie Green MD; Dr. Nicolette Mcdonald MD; Dr. Martin Vivas MD; Dr. Jose Lai MD; Dr. Issa Looney MD; Dr. Nicola Lindsey DO; Dr. Chago Miller MD; Dr. Tonio Fajardo DO; Dr. Willian Glaser MD; Dr. rOly Mitchell MD;Dr. Santos Hsu MD; Dr. Reinaldo Mclain MD; RICKIE Kumari; RICKIE Cummins ~ Signed [facility]07-21-2025 Progress note Author Willian Glaser [facility] Note Date/Time March 09, 2025 9:53 am [facility] Medical Records Department [address] [place] [address] Progress Note - Cardiology 03/09/25 0943 MR#: [id number] Acct: [id number] Name: PEDRO HILLMAN Rep #:[id number] : 1945 80 From: Willian Glaser MD PCP: Dr. Tonio Fajardo, DO Status:ADM IN Location: [address] 1 Subjective Subjective Patient evaluated in [...] (Auto) 72.6 H, Lymph % (Auto) 9.7L, Sabine % (Auto) 12.1 H, Eos % (Auto) [...] 72.6 H, Lymph % (Auto) 9.7 L, Sabine % (Auto) 12.1 H, Eos % (Auto) [...] Artery/Lesion type: nativeartery Tribe vs. 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 The patient should be reevaluated in 2 to 4 weeks in the [facility] with advanced practitioner. Given the patient's [...] At discharge patient should follow-up with the [facility] advanced practitioner in 2 to 3 weeks. 4. If further assistance is needed please reconsult the [facility]. Charges/Coding Visit Charges Inpatient E&M: 03595 Subs Hosp L3 03/09/25 0953 <Electronically signed by Willian Glaser MD> Cosigner Signature (if applicable): CC: ~ Signed [facility] Work Phone: 1(342) 155-386207-21-2025 Progress note [facility] Medical Records Department [address] [place] [address] Progress Note - Cardiology 03/09/25 0943 MR#: [id number] Acct: [id number] Name: PEDRO HILLMAN Rep #:[id number] : 1945 80 From: Willian Glaser MD PCP: Dr. Tonio Fajardo, DO Status:ADM [facility] Subjective Subjective Patient evaluated in a [...] (Auto) 72.6 H, Lymph % (Auto) 9.7L, Sabine % (Auto) 12.1 H, Eos % (Auto) [...] 72.6 H, Lymph % (Auto) 9.7 L, Sabine % (Auto) 12.1 H, Eos % (Auto) [...] Artery/Lesion type: nativeartery Tribe vs. 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 The patient should be reevaluated in 2 to 4 weeks in the [facility] with advanced practitioner. Given the [...] At discharge patient should follow-up with the [facility] advanced practitioner in 2 to3 weeks. 4. If further assistance is needed please reconsult the [facility]. Charges/Coding Visit Charges Inpatient E&M: 74516 [facility] Hosp L3 03/09/25 0953 Cosigner Signature (if applicable): CC: ~ Signed [facility]07-20-2025 Progress note Author Deric Lantigua [facility] Note Date/Time March 08, 2025 1:34 pm [facility] Medical Records Department [address] [place] [address] Progress Note - Hospitalist 03/08/25 0844 MR#: [id number] Acct: [id number] Name: PEDRO HILLMAN Rep #:[id number] : 1945 80 From: Deric Smith PCP: Dr. Tonio Fajardo, Status:ADM IN Location: [place] [id number]- 1 Reason for Visit Chief Complaint: SOB. [...] 03/05/25 14:17 SB (Rec: 03/05/25 14:17 SB [id number]) Nutrition Malnutrition Evidence of Yes Malnutrition Exists [...] also sustained 11 beats of V. tach. residential monitor reviewed. Still in A-fib/flutter with bradycardia. 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 ACS ruled out. Butadiene Convertor Operator is consulted. Repeat proBNP is elevated but it does not reflect treatment response as it should not be ordered for that. Clinically patient is feeling better with improvement in shortness of breath. 2D echo 03/05 reported EF 55%, PASP 42 mmHg with moderate TR, moderate IN and mild PI. 03/06: Furosemide changed to [...] conduction. Later on irregular variable conduction on case monitor 03/06: Discussed with the chairman emeritus. Metoprolol increased to 25 mg twice daily, [...] pressure in the 90s. Discussed with the chairman emeritus. Advised to discontinue to discontinue metoprolol and [...] [facility]-1 Echocardiogram 03/04/25 20:08 Interpretation Summary Moderate [...] in right lung base aeration. Reading Location: [place] [address] Charges/Coding Addendum Addendum: Total time of the visit including total time spent in counseling or coordinationof care, (more than 50% of the total time, spent in obtaining medical information from nurses and other ancillary care providers ,explaining to the patient about labs, imaging, diagnosis and management of active complex medical conditions), multiple active cardiac issues, urinary retention discussion with chairman emeritus and clinical update given to patient's ujdbhajz-kx-prs, review of labs and imaging is 35 minutes. Visit Charges Inpatient E&M: 19351 Subs Hosp L3 03/08/25 1040 <Electronically signed by Deric Lantigua MD> Cosigner Signature (if applicable): CC: ~ Signed ADDENDUM by Dr. Deric Lantigua MD on 03/08/25 at 1334 Addendum The patient's son and zumllmrp-se-onc came to visit him. They decided patient to be DNR CC arrest with no intubation CODE STATUS changed. Living will/advanced directive/end of life care: Patient does not have living will or advanced directive. He is next of kin is his son and byogryje-lv-dqa. After discussion of benefits/risks procedures involved with full code, DNR CC arrest and DNR CC, the patient and his mnixslvc-vk-byy he opted for DNR CC arrest with no intubation. Patient also said that he does not want pacemaker but his htjvjdpr-jb-xem and son will discuss with him Patient does want artificial life support including intubation, tube feed, ventilator and/chest compression, central venous catheter, vasopressor and DC shock if needed Total time spent in pajy-ry-enle encounter in discussion of advanced directive 17 minutes. 03/08/25 1334<Electronically signed by Deric Lantigua MD> Cosigner Signature (if applicable): cc: ~* Signed [facility] Work Phone: 1(297) 382-683207-20-2025 Progress note [facility] Medical Records Department [address] [place] [address] Progress Note - Hospitalist 03/08/25 0844 MR#: [id number] Acct: [id number] Name: PEDRO HILLMAN Rep #:[id number] : 1945 80 From: Deric Smith PCP: Dr. Tonio Fajardo, DO Status:ADM IN Location: [place] [address] Reason for Visit Chief Complaint: SOB. Objective [...] 03/05/25 14:17 SB (Rec: 03/05/25 14:17 SB [id number]) Nutrition Malnutrition Evidence of Yes Malnutrition Exists [...] Patient alsosustained 11 beats of V. tach. residential monitor reviewed. Still in A-fib/flutter with bradycardia. 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 ACS ruled out. Butadiene Convertor Operator is consulted. Repeat proBNP is elevated but it does not reflect treatment response as it should not be ordered for that. Clinically patient is feeling better with improvement in shortness of breath. 2D echo 03/05 reported EF 55%, PASP 42 mmHg with moderate TR, moderate IN and mild PI. 03/06: Furosemide changed to [...] conduction. Later on irregular variable conduction on case monitor 03/06: Discussed with the chairman emeritus. Metoprolol increased to 25 mg twice daily, Cardizem 60 mg V5mdauia. If heart rate controlled, will switch to [...] pressure in the 90s. Discussed with the chairman emeritus. Advised to discontinue to discontinue metoprolol and [...] few days. Monitor kidney function tomorrow a.m. 7/20: Creatinine increased to 3.11 but patient had [...] [facility]--1 Echocardiogram 03/04/25 20:08 Interpretation Summary Moderate [...] in right lung base aeration. Reading Location: [place] [address] Charges/Coding Addendum Addendum: Total time of the visit including total time spent in counseling or coordinationof care, (more than50% of the total time, spent in obtaining medical information from nurses and other ancillary care providers ,explaining to the patient about labs, imaging, diagnosis and management of active complexmedical conditions), multiple active cardiac issues, urinary retention discussion with cardiologistand clinical update given to patient's oovugdhn-gl-ltz, review of labs and imaging is 35 minutes. Visit Charges Inpatient E&M: 56978 Subs Hosp L3 03/08/25 1040 Cosigner Signature (if applicable): CC: ~ Signed ADDENDUM by Dr. Deric Lantigua MD on 03/08/25 at 1334 Addendum The patient's son and vljesuzn-sh-sgh came to visit him. They decided patient to be DNR CC arrest with no intubation CODE STATUS changed. Living will/advanced directive/end of life care: Patient does not have living will or advanced directive. He is next of kin is his son and tyignnvf-ki-hbw. After discussion of benefits/risks procedures involved with full code, DNR CC arrest and DNR CC, the patient and his ggqcqjkm-mh-lwx he opted for DNR CC arrest with no intubation. Patient also said that he does not want pacemaker but his urevjsqn-ia-kjb and son will discuss with him Patient does want artificial life support including intubation, tube feed, ventilator and/chest compression, central venous catheter, vasopressor and DC shock if needed Total time spent in rjcp-xg-rvfv encounter in discussion of advanced directive 17 minutes. 03/08/25 1334 Cosigner Signature (if applicable): cc: ~* Signed [facility]07-20-2025 Progress note Author Marjorie Green [facility] Note Date/Time March 08, 2025 8:51 am [facility] Medical Records Department [address] [place] [address] Progress Note - Cardiology 03/08/25 0848 MR#: [id number] Acct: [id number] Name: PEDRO HILLMAN Rep #:[id number] : 1945 80 From: Marjorie Green MD PCP: Dr. Tonio Fajardo, DO Status:ADM IN Location: [place] [address] Subjective Subjective Denies any complaints. Became bradycardic [...] Cosigner Signature (if applicable): CC: ~ Signed [facility] Work Phone: 1(953) 436-805307-20-2025 Progress note [facility] Medical Records Department [address] [place] [address] Progress Note - Cardiology 03/08/25 0848 MR#: [id number] Acct: [id number] Name: PEDRO HILLMAN Rep #:[id number] : 1945 80 From: Marjorie Green MD PCP: Dr. Tonio Fajardo, Status:ADM IN Location: [place] [address] Subjective Subjective Denies any complaints. Became bradycardic [...] Cosigner Signature (if applicable): CC: ~ Signed [facility]07-19-2025 Progress note Author Deric Lantigua [facility] Note Date/Time March 07, 2025 1:51 pm [facility] Medical Records Department [address] [place] [address] Progress Note - Hospitalist 03/07/25 1342 MR#: [id number] Acct: [id number] Name: PEDRO HILLMAN Rep #:[id number] : 1945 80 From: Deric Smith PCP: Dr. Tonio Fajardo, DO Status:ADM [facility] Reason for Visit Chief Complaint: SOB. [...] 03/05/25 14:17 SB (Rec: 03/05/25 14:17 SB [id number]) Nutrition Malnutrition Evidence of Yes Malnutrition Exists [...] low 108/34 but improved to 129 systolic. residential monitor reviewed. Still in A-fib/flutter. 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 ACS ruled out. Butadiene Convertor Operator is consulted. Repeat proBNP is elevated but it does not reflect treatment response as it should not be ordered for that. Clinically patient is feeling better with improvement in shortness of breath. 2D echo 03/05 reported EF 55%, PASP 42 mmHg with moderate TR, moderate IN and mild PI. 03/06: Furosemide changed to [...] conduction. Later on irregular variable conduction on case monitor 03/06: Discussed with the chairman emeritus. Metoprolol increased to 25 mg twice daily, [...] [facility]-1 Echocardiogram 03/04/25 20:08 Interpretation Summary Moderate [...] in right lung base aeration. Reading Location: [place] [address] Charges/Coding Visit Charges Inpatient E&M: 79505 Subs Hosp L2 03/07/25 1351 <Electronically signed by Deric Lantigua MD> Cosigner Signature (if applicable): CC: ~ Signed [facility] Work Phone: 1(332) 964-431907-19-2025 Progress note [facility] Medical Records Department [address] [place] [address] Progress Note - Hospitalist 03/07/25 1342 MR#: [id number] Acct: [id number] Name: PEDRO HILLMAN Rep #:[id number] : 1945 80 From: Deric Smith PCP: Dr. Tonio Fajardo, DO Status:ADM IN Location: [place] [address] Reason for Visit Chief Complaint: SOB. Objective [...] 03/05/25 14:17 SB (Rec: 03/05/25 14:17 SB [id number]) Nutrition Malnutrition Evidence of Yes Malnutrition Exists [...] low 108/34 but improved to 129 systolic. residential monitor reviewed. Still in A-fib/flutter. 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 ACS ruled out. Butadiene Convertor Operator is consulted. Repeat proBNP is elevated but it does not reflect treatment response as it should not be ordered for that. Clinically patient is feeling better with improvement in shortness of breath. 2D echo 03/05 reported EF 55%, PASP 42 mmHg with moderate TR, moderate IN and mild PI. 03/06: Furosemide changed to [...] conduction. Later on irregular variable conduction on case monitor 03/06: Discussed with the chairman emeritus. Metoprolol increased to 25 mg twice daily, Cardizem 60 mg W3vexzgi. If heart rate controlled, will switch to [...] [facility]-1 Echocardiogram 03/04/25 20:08 Interpretation Summary Moderate [...] in right lung base aeration. Reading Location: [place] [address] Charges/Coding Visit Charges Inpatient E&M: 69507 Subs Hosp L2 03/07/25 1351 Cosigner Signature (if applicable): CC: ~ Signed [facility]07-18-2025 Progress note Author Deric Lantigua [facility] Note Date/Time March 06, 2025 3:46 pm [facility] Medical Records Department [address] [place] [address] Progress Note - Hospitalist 03/06/25 3400 MR#: [id number] Acct: [id number] Name: PEDRO HILLMAN Rep #:[id number] : 1945 80 From: Deric Smith PCP: Dr. Tonio Fajardo, DO Status:ADM IN Location: [place] [address]- 1 Reason for Visit Chief Complaint: SOB. [...] 03/05/25 14:17 SB (Rec: 03/05/25 14:17 SB [id number]) Nutrition Malnutrition Evidence of Yes Malnutrition Exists [...] is improved. Still in A-fib/flutter with heart [id number]. Shortness of breath is better. 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 ACS ruled out. Butadiene Convertor Operator is consulted. Repeat proBNP is elevated but it does not reflect treatment response as it should not be ordered for that. Clinically patient is feeling better with improvement in shortness of breath. 2D echo 03/05 reported EF 55%, PASP 42 mmHg with moderate TR, moderate IN and mild PI. 03/06: Furosemide changed to [...] conduction. Later on irregular variable conduction on case monitor 03/06: Discussed with the chairman emeritus. Metoprolol increased to 25 mg twice daily, [...] [facility]-1 Echocardiogram 03/04/25 20:08 Interpretation Summary Moderate [...] in right lung base aeration. Reading Location: [place] [address] Charges/Coding Visit Charges Inpatient E&M: 18351 [facility] Hosp L2 03/06/25 1546 <Electronically signed by Deric Lantigua MD> Cosigner Signature (if applicable): CC: ~ Signed [facility] Work Phone: 1(916) 142-958307-18-2025 Progress note [facility] Medical Records Department [address] [place] [address] Progress Note - Hospitalist 03/06/25 1540 MR#: [id number] Acct: [id number] Name: PEDRO HILLMAN Rep #:[id number] : 1945 80 From: Deric Smith PCP: Dr. Tonio Fajardo, Status:ADM IN Location: [place] [id number]- 1 Reason for Visit Chief Complaint: SOB. [...] 03/05/25 14:17 SB (Rec: 03/05/25 14:17 SB [id number]) Nutrition Malnutrition Evidence of Yes Malnutrition Exists [...] is improved. Still in A-fib/flutter with heart [id number]. Shortness of breath is better. 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 ACS ruled out. Butadiene Convertor Operator is consulted. Repeat proBNP is elevated but it does not reflect treatment response as it should not be ordered for that. Clinically patient is feeling better with improvement in shortness of breath. 2D echo 03/05 reported EF 55%, PASP 42 mmHg with moderate TR, moderate IN and mild PI. 03/06: Furosemide changed to [...] conduction. Later on irregular variable conduction on case monitor 03/06: Discussed with the chairman emeritus. Metoprolol increased to 25 mg twice daily, Cardizem 60 mg D3xeafbg. If heart rate controlled, will switch to [...] [facility]-1 Echocardiogram 03/04/25 20:08 Interpretation Summary Moderate [...] in right lung base aeration. Reading Location: [place] [address] Charges/Coding Visit Charges Inpatient E&M: 83865 Subs Hosp L2 03/06/25 1546 Cosigner Signature (if applicable): CC: ~ Signed [facility]07-18-2025 Consult note Author Marjorie Green [facility] Note Date/Time March 06, 2025 9:33 am [facility] Medical Records Department [address] [place] [address] Consultation - Cardiology 03/06/25925 MR#: [id number] Acct: [id number] Name: PEDRO HILLMAN Rep #:[id number] : 1945 80 From: Marjorie Green MD PCP: Dr. Tonio Fajardo, DO Status:ADM IN Location: [facility] DUS168- 1 Assessment & Plan Assessment/Plan (1) Atrial [...] his shortness of breath is much improved. [facility] Medical History (Updated 03/06/25 @ 09:[address] Marjorie Green MD) Other persistent atrial fibrillation New onset atrial flutter COVID Wears hearing aid in both ears Former smoker Coronary artery disease Peripheral vascular occlusive disease BPH (benign prostatic hyperplasia) Chronic kidney disease, stage 3 Atherosclerosis of coronary artery of tangirnaq heart without angina pectoris Hyperlipidemia Lower extremity [...] applicable): CC: Dr. Tonio Fajardo, DO~ Signed [facility] Work Phone: 1(160) 383-838707-18-2025 Consult note [facility] Medical Records Department [address] [place] [address] Consultation - Cardiology 03/06/25 09 MR#: [id number] Acct: [id number] Name: PEDRO HILLMAN Rep #:[id number] : 1945 80 From: Marjorie Green MD PCP: Dr. Tonio Fajardo DO Status:ADM IN Location: [place] [address] Assessment & Plan Assessment/Plan (1) Atrial flutter [...] his shortness of breath is much improved. [facility] Medical History (Updated 03/06/25 @ 09:[address] Marjorie Green MD) Other persistent atrial fibrillation New onset atrial flutter COVID Wears hearing aid in both ears Former smoker Coronary artery disease Peripheral vascular occlusive disease BPH (benign prostatic hyperplasia) Chronic kidney disease, stage 3 Atherosclerosis of coronary artery of tangirnaq heart without angina pectoris Hyperlipidemia Lower extremity [...] applicable): CC: Dr. Tonio Fajardo DO~ Signed [facility]07-17-2025 Progress note Author Deric Lantigua [facility] Note Date/Time March 05, 2025 3:56 pm [facility] Medical Records Department [address] [place] [address] Progress Note - Hospitalist 03/05/25 0719 MR#: [id number] Acct: [id number] Name: PEDRO HILLMAN Rep #:[id number] : 1945 80 From: Deric Smith PCP: Dr. Tonio Fajardo, DO Status:ADM IN Location: [place] [address] Reason for Visit Chief Complaint: SOB. Objective [...] 78.1 H, Lymph % (Auto) 10.1 L, Sabine % (Auto) 9.1, Eos % (Auto) 1.6, [...] Clarity Cloudy, Urine pH 6.5, Ur Specific [place] 1.010, Urine Protein 100 H, Urine Glucose [...] (Auto) 76.4 H, Lymph % (Auto) 9.5L, Sabine % (Auto) 11.4 H, Eos % (Auto) [...] [facility]-1 Chest X-Ray 03/05/25 04:30 IMPRESSION: Small interval improvement in right lung base aeration. Reading Location: [place] [address] Rhythm Strip Rhythm Strip: Atrial flutter Rate: [...] hematuria: (8) Atherosclerosis of coronary artery of tangirnaq heart without angina pectoris: QUALIFIERS: Coronary Disease-Associated Artery/Lesion type: nativeartery Qualified Code(s): I25.10 - Atherosclerotic heart disease of tangirnaq coronary artery without angina pectoris (9) Overweight [...] no significant delta change. ACS ruled out. Butadiene Convertor Operator is consulted. Repeat proBNP is elevated but it does not reflect treatment response as it should not be ordered for that. Clinically patient is feeling better with improvement in shortness of breath. 2D echo 03/05 reported EF 55%, PASP 42 mmHg with moderate TR, moderate IN and mild PI. 2. EKG evidence of Atrial Flutter; with Rapid Ventricular Response of ~117 bpm even after being treated with IV Cardizem bolus probably precipitating CHF exacerbation: Patient already on apixaban patient had digoxin. TSH 3.7 normal. Twelve-lead EKG individually reviewed and shows atrial flutter 2 is to 1 conduction. Later on irregular variable conduction on case monitor 3. CKD; stage IIIb with hyperkalemia, [...] Clarity Cloudy, Urine pH 6.5, Ur Specific [place]ning[place] 1.010, Urine Protein 100 H, Urine Glucose [...] (Auto) 76.4 H, Lymph % (Auto) 9.5L, Sabine % (Auto) 11.4 H, Eos % (Auto) [...] in right lung base aeration. Reading Location: [place] [address] Charges/Coding Addendum Addendum: Total time of the [...] imagingis 35 minutes. Visit Charges Inpatient E&M: 94980 Subs Hosp L3 03/05/25 9137 <Electronically signed by Deirc Lantigua MD> Cosigner Signature (if applicable): CC: ~ Signed [facility] Work Phone: 1(587) 320-551707-17-2025 Progress note [facility] Medical Records Department [address] [place] [address] Progress Note - Hospitalist 03/05/25718 MR#: [id number] Acct: [id number] Name: PEDRO HILLMAN Rep #:[id number] : 1945 80 From: Deric Smith PCP: Dr. Tonio Fajardo, DO Status:ADM IN Location: [place] [address]- Reason for Visit Chief Complaint: SOB. Objective [...] 78.1 H, Lymph % (Auto) 10.1 L, Sabine % (Auto) 9.1, Eos % (Auto) 1.6, [...] Clarity Cloudy, Urine pH 6.5, Ur Specific [place]ning[place] 1.010, Urine Protein 100 H, Urine Glucose [...] (Auto) 76.4 H, Lymph % (Auto) 9.5L, Sabine % (Auto) 11.4 H, Eos % (Auto) [...] at the right lung base. Reading Location: [facility]-1 Chest X-Ray 03/05/25 04:30 IMPRESSION: Small interval improvement in right lung base aeration. Reading Location: [place] [address] Rhythm Strip Rhythm Strip: Atrial flutter Rate: [...] hematuria: (8) Atherosclerosis of coronary artery of tangirnaq heart without angina pectoris: QUALIFIERS: Coronary Disease-Associated Artery/Lesion type: nativeartery Qualified Code(s): I25.10 - Atherosclerotic heart disease of tangirnaq coronary artery without angina pectoris (9) Overweight [...] no significant delta change. ACS ruled out. Butadiene Convertor Operator is consulted. Repeat proBNP is elevated but it does not reflect treatment response as it should not be ordered for that. Clinically patient is feeling better with improvement in shortness of breath. 2D echo 03/05 reported EF 55%, PASP 42 mmHg with moderate TR, moderate IN and mild PI. 2. EKG evidence of Atrial Flutter; with Rapid Ventricular Response of ~117 bpm even after being treated with IV Cardizem bolus probably precipitating CHF exacerbation: Patient already on apixaban patient had digoxin. TSH 3.7 normal. Twelve-lead EKG individually reviewed and shows atrial flutter 2 is to 1 conduction. Later on irregular variable conduction on case monitor 3. CKD; stage IIIb with hyperkalemia, [...] Clarity Cloudy, Urine pH 6.5, Ur Specific [place] 1.010, Urine Protein 100 H, Urine Glucose [...] (Auto) 76.4 H, Lymph % (Auto) 9.5L, Sabine % (Auto) 11.4 H, Eos % (Auto) [...] [facility]-1 Echocardiogram 03/04/25 20:08 Interpretation Summary Moderate [...] in right lung base aeration. Reading Location: [place] [address] Charges/Coding Addendum Addendum: Total time of the [...] imagingis 35 minutes. Visit Charges Inpatient E&M: 62646 Subs Hosp 03/05/25 1556 Cosigner Signature (if applicable): CC: ~ Signed [facility]07-17-2025 History and physical note Author Nicola Madison [facility] Note Date/Time March 05, 2025 6:22 am [facility] Medical Records Department [address] [place] [address] H&P Exam - Hospitalist 03/04/251921 MR#: [id number] Acct: [id number] Name: PEDRO HILLMAN Rep #:[id number] : 1945 80 From: Nicola Levy DO PCP: Dr. Tonio Fajardo, DO Status:ADM IN Location: [place] [id number]- 1 HPI - General General Date of [...] of COVID-19 and OA who presents to [facility] ER complaining of SOB. Mr. Hillman reports [...] ~53% with moderate mitral annular calcification and gykq-gc-iwhrczsw (~1-2+) mitral valve insufficiency with a pulmonary [...] is expected to extend beyond 2 midnights. [facility] Medical History Other persistent atrial fibrillation New onset atrial flutter COVCOLETTE Wears hearing aid in both ears Former smoker Coronary artery disease Peripheral vascular occlusive disease BPH (benign prostatic hyperplasia) Chronic kidney disease, stage 3 Atherosclerosis of coronary artery of tangirnaq heart without angina pectoris Hyperlipidemia Lower extremity [...] 78.1 H, Lymph % (Auto) 10.1 L, Sabine % (Auto) 9.1, Eos % (Auto) 1.6, [...] [facility] Assessment & Plan Assessment/Plan (1) CHF exacerbation: QUALIFIERS: Heart failure type: unspecified Qualified Code(s): I50.9 - Heart failure, unspecified (2) Atrial flutter with rapid ventricular response: (3) Chronic anticoagulation: (4) Elevated troponin: (5) Hyperkalemia: (6) Pleural effusion on right: (7) Acute cystitis with hematuria: (8) Atherosclerosis of coronary artery of tangirnaq heart without angina pectoris: QUALIFIERS: Coronary Disease-Associated Artery/Lesion type: nativeartery Qualified Code(s): I25.10 - Atherosclerotic heart disease of tangirnaq coronary artery without angina pectoris (9) Overweight [...] LVEF. Serialize troponin. Finally, we will consult [facility] see this patient on rounds [...] 75 minutes. Charges/Coding Visit Charges Inpatient E&M: 27586 Init Hosp L3 03/05/25 0622 <Electronically signed by Nicola Lindsey DO> Cosigner Signature (if applicable): CC: Dr. Nicola Lindsey DO; Dr. Tonio Fajardo DO~ Signed [facility] Work Phone: 1(697) 151-224907-17-2025 History and physical note [facility] Medical Records Department [address] [facility] [place] [address] H&P Exam - Hospitalist 03/04/251921 MR#: [id number] Acct: [id number] Name: PEDRO HILLMAN Rep #:[id number] : 1945 80 From: Nicola Levy DO PCP: Dr. Tonio Fajardo DO Status:ADM IN Location: [facility] [id number]- 1 HPI - General General Date of [...] of COVID-19 and OA who presents to [facility] ERcomplaining of SOB. Mr. Hillman reports his [...] ~53% with moderate mitral annular calcification and coxc-rt-vdlvjdpe (~1-2+) mitral valve insufficiency with a pulmonary [...] is expected to extend beyond 2 midnights. [facility] Medical History Other persistent atrial fibrillation New onset atrial flutter DIMA Wears hearing aid in both ears Former smoker Coronary artery disease Peripheral vascular occlusive disease BPH (benign prostatic hyperplasia) Chronic kidney disease, stage 3 Atherosclerosis of coronary artery of tangirnaq heart without angina pectoris Hyperlipidemia Lower extremity [...] 78.1 H, Lymph % (Auto) 10.1 L, Sabine % (Auto) 9.1, Eos % (Auto) 1.6, [...] [facility]-1 Assessment & Plan Assessment/Plan (1) CHF exacerbation: QUALIFIERS: Heart failure type: unspecified Qualified Code(s): I50.9 - Heart failure, unspecified (2) Atrial flutter with rapid ventricular response: (3) Chronic anticoagulation: (4) Elevated troponin: (5) Hyperkalemia: (6) Pleural effusion on right: (7) Acute cystitis with hematuria: (8) Atherosclerosis of coronary artery of tangirnaq heart without angina pectoris: QUALIFIERS: Coronary Disease-Associated Artery/Lesion type: nativeartery Qualified Code(s): I25.10 - Atherosclerotic heart disease of tangirnaq coronary artery without angina pectoris (9) Overweight [...] LVEF. Serialize troponin. Finally, we will consult [facility] see this patient on rounds [...] 75 minutes. Charges/Coding Visit Charges Inpatient E&M: 47477 Init Hosp L3 03/05/25 0622 Cosigner Signature (if applicable): CC: Dr. Nicola Lindsey DO; Dr. Tonio Fajardo DO~ Signed [facility]07-17-2025 Radiology Diagnostic study note [facility] Imaging Services [address] [place], [place] [address] Chest 1 View (Portable) MR#: [id number] Acct: [id number] Name: PEDRO HILLMAN Rep #: [id number] : 1945 M 80 From: Regi Espino MD PCP: Dr. Tonio Fajardo DO Status: ADM IN Study:Chest 1 View (Portable) Date of Exam: 03/05/25 Exam# [id number] Ordering Dr: Nicola Mukherjee DO PROCEDURE: CHEST [...] in right lung base aeration. Reading Location: [place] [address] CC: Dr. Nicola Lindsey DO; Dr. Tonio Fajardo DO ~ Lithopone Charger: Signed [facility]07-16-2025 Evaluation note* Diagnosis Onset Date Resolution Status [...] 042024 7:57pm Atherosclerosis of coronary artery of tangirnaq heart without angina pectoris chronic March 04, 2025 7:57pm CHF exacerbation chronic February 7:57pm Hypertension chronic March 04, 2 025 7:57pm [facility] Work Phone: 1([phone]) 725-833707-16-2025 Evaluation note* Diagnosis Onset Date Resolution Status [...] 042024 7:57pm Atherosclerosis of coronary artery of tangirnaq heart without angina pectoris chronic March 04, [...] by pass graft 2012March 17, 2025 12:51pm [facility] Work Phone: [phone] Evaluation note* Diagnosis Onset Date Resolution Status [...] 042024 7:57pm Atherosclerosis of coronary artery of tangirnaq heart without angina pectoris chronic March 04, [...] aortocoronary by pass graft 2012April 05 7:55pm [facility] Work Phone: 1(684) 971-596107-16-2025 Evaluation note* Diagnosis Onset Date Resolution Status [...] 042024 7:57pm Atherosclerosis of coronary artery of tangirnaq heart without angina pectoris chronic March 04, [...] cardiac pacemaker acute April 10, 2025 11:14am [facility] Work Phone: [phone] 660-688607-16-2025 Evaluation note* Diagnosis Onset Date Resolution Status [...] 042024 7:57pm Atherosclerosis of coronary artery of tangirnaq heart without angina pectoris chronic March 04, [...] infection) resolv ed April 10, 2025 6:33pm [facility] Work Phone: [phone]) 151-630507-16-2025 Evaluation note* Diagnosis Onset Date Resolution Status [...] 2025 7:57pm Other persistent atrial fibrillation acute Crystal 16th, 2025 7:57pm Overweight (BMI 25.0-29.9) acute March 04, 2025 7:57pm Pleural effusion on right acute March 04, 2025 7:57pm Tricuspid valve regurgitation acute March 04, 2025 7:57pm Atherosclerosis of coronary artery of tangirnaq heart without angina pectoris chronic March 04, [...] 17, 2025 6:19pm Hyperlipidemia chronic March 6:19pm [facility] Work Phone: [phone] Evaluation note* Diagnosis Onset Date Resolution Status [...] 2025 7:57pm Atherosclerosis of coronary artery of tangirnaq heart without angina pectoris chronic March 04, [...] st 2024 6:19pm Orthostatic hypotension acute S epte2024 1:48pm Syncope acute April 20, 2025 1:48pm [facility] Work Phone: [phone]) [phone] Evaluation note* Diagnosis Onset Date Resolution Status [...] 2025 7:57pm Atherosclerosis of coronary artery of tangirnaq heart without angina pectoris chronic March 04, [...] April 05 7:55pm Chronic anticoagulation acute A ug2024 7:55pm [...] acute April 10 6:33pm Debility acute April 10 025 6:33pm History of lung cancer acute [...] st 2024 6:19pm Orthostatic hypotension inactive S eptember 2024 1:48pm Syncope inactive April 20, 2025 1:48pm [...] resolved Apr 7:21pm Orthostatic hypotension inactive S [facility]2024 7:21pm Syncope inactive April 23, 2025 7:21pm [facility] Work Phone: [phone]) 231-198107-16-2025 Evaluation note* Diagnosis Onset Date Resolution Status [...] 2025 7:57pm Atherosclerosis of coronary artery of tangirnaq heart without angina pectoris chronic March 04, [...] acute April 10 6:33pm Debility acute April 10 025 6:33pm History of lung cancer acute [...] st 2024 6:19pm Orthostatic hypotension inactive S 2024 1:48pm Syncope inactive April 20, 2025 1:48pm (HFpEF) heart failure with preserved ejection fraction acute Apr 7:21pm Atrial fibrillation acute 2024 7:21pm BPH (benign prostatic hyperplasia) acute April 23 025 7:21pm Debility acute April 23, 2025 [...] cardiac pacemaker acute April 28, 2025 10:17am [facility] Work Phone: [phone]) 105-530407-16-2025 Evaluation note* Diagnosis Onset Date Resolution Status [...] 2025 7:57pm Atherosclerosis of coronary artery of tangirnaq heart without angina pectoris chronic March 04, [...] April 10, 2025 11:14am Atrial fibrillation acute Marus t 2024 6:33pm BPH (benign prostatic hyperplasia) acute April 10 6:33pm Chronic kidney disease, stag e 3b acute April 10 6:33pm Debility acute April 10, 2 025 [...] April 10, 2025 6:33pm Atrial fibrillation acute Marus t 2024 6:19pm BPH (benign prostatic hyperplasia) [...] resolved March 212024 6:19pm Pneumonia resolved April 17, 6:19pm Pneumothorax resolved April 17, 2025 6:19pm Tachy-brittany syndrome resolved Augu st 2024 6:19pm Orthostatic hypotension inactive S eptember 2024 1:48pm Syncope inactive April 20, 2025 1:48pm (HFpEF) heart failure with preserved ejection fraction acute Apr 7:21pm Atrial fibrillation acute Apre mb2024 7:21pm BPH (benign prostatic hyperplasia) acute April [...] 7:21pm Heart block AV complete acute S epte2024 10:17am Presence of cardiac pacemaker acute April 28, 2025 10:17am Atrial fibrillation acute Apre mb2024 2:41pm [facility] Work Phone: [phone] 225-151607-16-2025 Discharge summary Author Chris Ochoa [facility] Note Date/Time March 04, 2025 7:26 pm [facility] Medical Records Department [address] [place] [address] Emergency Department Summary 03/04/25 MR#: [id number] Acct: [id number] Name: PEDRO HILLMAN Nora Rep #:[id number] : 1945 80 From: Chris Ochoa MD [...] stage 3 Atherosclerosis of coronary artery of tangirnaq heart without angina pectoris Hyperlipidemia Lower extremity [...] signs. Back nontender. Movingall 4 extremities. 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 Calves nontender without edema or cords. [...] 78.1 H Lymph % (Auto) 10.1 L Sabine % (Auto) 9.1 Eos % (Auto) 1.6 [...] at the right lung base. [facility] Chest x-[facility], 2 views, AP and [...] Chronic anticoagulation Disposition Disposition: Acute Care Hospital [facility] What to do if you have Problems For any increased pain, shortness of breath, bleeding, nausea or vomiting, chestpain, or any unexpected problems, contact your Primary Care Provider. Call [facility] ([phone]) or report to the closest Emergency Room. Call 911 if necessary. 03/04/251925 <Electronically signed by Chris Ochoa MD> Cosigner Signature (if applicable): CC: Dr. Tonio Fajardo DO ~ Signed [facility] Work Phone: [phone]) 577-539307-16-2025 Discharge summary [facility] Medical Records Department [address] [place] [address] Emergency Department Summary 03/04/25 MR#: [id number] Acct: [id number] Name: PEDRO HILLMAN Rep #:[id number] : 1945 80 From: Chris Ochoa MD [...] Prior similar symptoms: Yes Recent [facility] Medical History Other persistent atrial fibrillation New onset atrial flutter COVID Wears hearing aid in both ears Former smoker Coronary artery disease Peripheral vascular occlusive disease BPH (benign prostatic hyperplasia) Chronic kidney disease, stage 3 Atherosclerosis of coronary artery of tangirnaq heart without angina pectoris Hyperlipidemia Lower extremity [...] signs. Back nontender. Movingall 4 extremities. 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 Calves nontender without edema or cords. [...] 78.1 H Lymph % (Auto) 10.1 L Sabine % (Auto) 9.1 Eos % (Auto) 1.6 [...] at the right lung base. Reading Location: [facility]-1 Chest x-ray, 2 views, AP and [...] Chronic anticoagulation Disposition Disposition: Acute Care Hospital [facility] What to do if you have Problems For any increased pain, shortness of breath, bleeding, nausea or vomiting, chestpain, or any unexpected problems, contact your Primary Care Provider. Call [facility] ([phone]) or report tothe closest Emergency Room. Call 911 if necessary. 03/04/251925 Cosigner Signature (if applicable): CC: Dr. Tonio Fajardo DO ~ Signed [facility]07-16-2025 Radiology Diagnostic study note [facility] Imaging Services [address] [place] [address] Chest PA and Lateral MR#: [id number] Acct: [id number] Name: PEDRO HILLMAN Rep #: [id number] : 1945 M 80 From: Tom Flores MD PCP: Dr. Tonio Fajardo DO Status: PRE ER Study:Chest PA and Lateral Date of Exam: 03/04/25 Exam# [id number] Ordering Dr: Camila Ochoa MD PROCEDURE: CHEST [...] [facility] CC: Dr. Chris Ochoa MD; Dr. Tonio Fajardo DO ~ Lithopone Charger: Signed [facility]07-16-2025 Discharge summary Author Chris Ochoa [facility] Note Date/Time March 04, 2025 7:26 pm [facility] Medical Records Department [address] [place] [address] Emergency Department Summary 03/04/25 MR#: [id number] Acct: [id number] Name: PEDRO HILLMAN Rep #:[id number] : 1945 80 From: Chris Ochoa MD [...] stage 3 Atherosclerosis of coronary artery of tangirnaq heart without angina pectoris Hyperlipidemia Lower extremity [...] signs. Back nontender. Movingall 4 extremities. 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 Calves nontender without edema or cords. [...] 78.1 H Lymph % (Auto) 10.1 L Sabine % (Auto) 9.1 Eos % (Auto) 1.6 [...] at the right lung base. Reading Location: [place] [address] Chest x-ray, 2 views, AP and lateral, [...] Chronic anticoagulation Disposition Disposition: Acute Care Hospital [facility] What to do if you have Problems For any increased pain, shortness of breath, bleeding, nausea or vomiting, chestpain, or any unexpected problems, contact your Primary Care Provider. Call [facility] ([phone]) or report to the closest Emergency Room. Call 911 if necessary. 03/04/251925 <Electronically signed by Chris Ochoa MD> Cosigner Signature (if applicable): CC: Dr. Tonio Fajardo, DO ~ Signed [facility] Work Phone: 1(428) 551-347303-20-2025 Evaluation note* Diagnosis Onset Date Resolution Status [...] 2025 7:57pm Atherosclerosis of coronary artery of tangirnaq heart without angina pectoris chronic March 04, 2025 7:57pm CHF exacerbation chronic February 7:57pm [facility] Work Phone: [phone]) 931-668903-13-2025 Radiology Diagnostic study note [facility] Imaging Services [address] [place] [address] Chest AND Abd W/ Contrast MR#: [id number] Acct: [id number] Name: PEDRO HILLMAN Rep #: [id number] : 1945 M 79 From: Tom Flores MD PCP: Dr. Tonio Fajardo, DO Status: REG CLI Study:CT Chest AND Abd W/ Contrast Date of Ex am: 10/30/24 Exam# [id number] Ordering Dr: Frantz Zamora MD PROCEDURE: CT [...] use of iterative reconstruction technique). Reading Location: [id number] CC: Dr. Russ Zamora MD; Dr. 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..] Dictated: 10/17/24 1004 Date Transcribed: 10/17/24 1004 Lithopone Charger: Dr. Tyrell Uriarte, DO Signed [facility]02-06-2025 Evaluation note* Diagnosis Onset Date Resolution Status [...] right lung chronic Marlon h 2024 2:10pm [facility] Work Phone: [phone]) 549-762802-06-2025 Evaluation note* Diagnosis Onset Date Resolution Status [...] right lung chronic Marlon h 2024 1:24pm [facility] Work Phone: [phone] 327-631410-20-2023 Procedure [facility] 04-18-2023 Progress note Author Joaquim Suárez [facility] [facility] April 18, 2023 7:12pm Note Date/Time April 18, 2023 3: 56pm [facility] [address] [place] [address] Progress Note - Wound Care 04/18/23 1549 MR#: [id number] Acct: [id number] Name: PEDRO HILLMAN Rep #:[id number] : 1945 78 From: Joaquim BORJAS PCP: [...] Recorded Date Recorded By Document 04/02/23 11:24 [id number] 04/02/23 11:25 PL Document 04/18/23 13:24 [facility] [id number] 04/18/23 13:30 [facility] 04/02/23 04/18/23 11:24 13:24 - Today's Visit Information Type of service Follow-up Visit Follow-up Visit (Physician/LEAD MECHANIC (Physician/LEAD MECHANIC ) ) Arrival Mode Ambulatory,Cane Ambulatory,Cane Transfer [...] Recorded Date Recorded By Document 04/18/23 13:24 [facility] [id number] 04/18/23 13:30 [facility] 04/18/23 13:24 Wound Center Nurse 1 [...] Attached -Granulation Amt Large (67-100%) -Granulation Quality [place] -Slough/Fibrin No -Necrosis Amt None Present (0 [...] Recorded Date Recorded By Document 04/02/23 11:42 [id number] 04/02/23 11:53 Document 04/18/23 14:03 [id number] 04/18/23 14:04 04/02/23 04/18/23 11:42 14:03 Wound [...] Recorded Date Recorded By Document 04/02/23 11:54 [id number] 04/02/23 11:54 Document 04/18/23 14:24 RB [id number] 04/18/23 14:25 RB 04/02/23 04/18/23 11:54 14:24 [...] mellitus with diabetic polyneuropathy QUALIFIERS: Diabetes mellitus usp insulin use: with intermediate manager use Qualified Code(s): E11.42 - Type 2 diabetes mellitus with diabetic polyneuropathy; Z79.4 - intermediate manager (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 of insulin PLAN: Educated the [...] Cosigner Signature (if applicable): CC: ~ Signed [facility] Work Phone: 1(665) 362-876708-20-2023 Progress note Author Bonny Glynn [facility] April 07, 2023 10:44pm Note Date/Time April 02, 2023 12 :35pm [facility] [address] [place] [address] Progress Note - Wound Care 04/02/23 1235 MR#: [id number] Acct: [id number] Name: PEDRO HILLMAN Rep #:[id number] : 1945 78 From: Bonny garcia [employer]-C PCP: Dr. Tonio Fajardo, DO Status:REG RCR [...] 11:24 04/02/23 11:24 Charges/Coding Procedures Integumentary 111xxx-113xx: 65915 Mihaela subq tissue 20 sq cm/< Debridement [...] Date Recorded By Document 04/02/23 11:24 PL [id number] 04/02/23 11:25 PL 04/02/23 11:24 WC - Today's Visit Information Type of service Follow-up Visit (Physician/LEAD MECHANIC ) Arrival Mode Ambulatory,Cane Transfer Assistance None [...] Patient Pain Free? Yes URBAN - Nurse 2 - General Ulcer CM Notes Start: 04/02/23 11:22 Freq: Status: Active Protocol: Activity Type Activity Date Activity User E-sign Co-sign Detail Recorded Client Recorded Date Recorded By Document 04/02/23 11:42 [id number] 04/02/23 11:53 04/02/23 11:42 Wound Center Nurse [...] Recorded Date Recorded By Document 04/02/23 11:54 [id number] 04/02/23 11:54 04/02/23 11:54 Wound Care Center [...] that the wound center will have a cyber security instructor, will have the patient see him for further evaluation and treatment. Follow up two weeks. Call or come in sooner if develop any questions or concerns. 04/07/23 4759 <Electronically signed by Bonny Glynn NP [employer]> Cosigner Signature (if applicable): CC: ~ Signed [facility] Work Phone: 1(714) 981-428107-17-2023 Progress note Author Bonny Glynn [facility] March 05, 2023 1:06pm Note Date/Time March 05, 2023 12:2 9pm [facility] [address] [place] [address] Progress Note - Wound Care 03/05/23 1226 MR#: [id number] Acct: [id number] Name: PEDRO HILLMAN Rep #:[id number] : 1945 78 From: Bonny garcia [employer]-C PCP: Dr. Tonio Fajardo, DO Status:REG RCR [...] Method Room Air Charges/Coding Procedures Integumentary 111xxx-113xx: 64687 Mihaela subq tissue 20 sq cm/< Debridement [...] Date Recorded By Document 02/19/23 13:34 DORA [id number] 02/19/23 13:36 Document 03/05/23 11:26 JACOB [id number] 03/05/23 11:29 KW 02/19/23 03/05/23 13:34 11:26 - Today's Visit Information Type of service Follow-up Visit Follow-up Visit (Physician/LEAD MECHANIC (Physician/LEAD MECHANIC ) ) Arrival Mode Ambulatory Ambulatory,Cane Accompanied [...] Recorded Date Recorded By Document 02/19/23 13:34 [id number] 02/19/23 13:36 Document 03/05/23 11:26 KW [id number] 03/05/23 11:29 KW 02/19/23 03/05/23 13:34 11:26 [...] Large (67-100%) Small (1-33%) -Granulation Quality [place] -Slough/Fibrin No -Necrosis Amt Small (1-33%) -Structure [...] Recorded Date Recorded By Document 02/19/23 13:37 [id number] 02/19/23 13:39 Document 03/05/23 11:37 [id number] 03/05/23 11:46 02/19/23 03/05/23 13:37 11:37 Wound [...] Recorded Date Recorded By Document 02/19/23 13:43 [id number] 02/19/23 13:44 MW Document 03/05/23 11:53 [facility] [id number] 03/05/23 11:55 BM 02/19/23 03/05/23 13:43 11:53 [...] 1306 <Electronically signed by Bonny Glynn NP [employer]> Cosigner Signature (if applicable): CC: ~ Signed [facility] Work Phone: 1(945) 198-440907-03-2023 Progress note Author Bonny Glynn [facility] February 19, 2023 2:23pm Note Date/Time February 19, 2023 2:16p m [facility] [address] [place] [address] Progress Note - Wound Care 02/19/23 1412 MR#: [id number] Acct: [id number] Name: PEDRO HILLMAN Rep #:[id number] : 1945 78 From: Bonny garcia [employer] PCP: Dr. Tonio Fajardo, DO Status:REG RCR [...] 13:34 02/19/23 13:34 Charges/Coding Procedures Integumentary 111xxx-113xx: 88330 Mihaela subq tissue 20 sq cm/< Debridement [...] Recorded Date Recorded By Document 02/19/23 13:34 [id number] 02/19/23 13:36 02/19/23 13:34 - Today's Visit Information Type of service Follow-up Visit (Physician/LEAD MECHANIC ) Arrival Mode Ambulatory Patient Requires Transmission-Based [...] Date Recorded By Document 02/19/23 13:34 DORA [id number] 02/19/23 13:36 02/19/23 13:34 Wound Center Nurse [...] Cleansing No Lower Limb Edema Present NA URBAN - Nurse 2 - General Ulcer CM Notes Start: 02/19/23 13:34 Freq: Status: Active Protocol: Activity Type Activity Date Activity User E-sign Co-sign Detail Recorded Client Recorded Date Recorded By Document 02/19/23 13:37 JF [id number] 02/19/23 13:39 JF 02/19/23 13:37 Wound Center [...] Date Recorded By Document 02/19/23 13:43 MW [id number] 02/19/23 13:44 MW 02/19/23 13:43 Wound Care [...] sooner if develop any questions or concerns. 02/19/231422 <Electronically signed by Bonny Glynn NP [employer]> Cosigner Signature (if applicable): CC: ~ Signed [facility] Work Phone: 1(641) 561-815306-19-2023 Progress note Author Bonny Glynn [facility] February 05, 2023 2:37pm Note Date/Time February 05, 2023 1:59 pm [facility] [address] [place] [address] Progress Note - Wound Care 02/05/23 1359 MR#: [id number] Acct: [id number] Name: PEDRO HILLMAN Rep #:[id number] : 1945 78 From: Bonny garcia [employer] PCP: Dr. Tonio Fajardo, DO Status:REG RCR Location: History of Present Illness Date of Service: 02/05/23 Chief Complaint: right medial foot ulcer History of Wound: This 78-year-old male returns to the wound healing clinic for reoccurrence of a right medial foot ulcer. Wound care has been Moistened Cass covered with Chetopa SAP dressing. Patient diabetic neuropathic. Patient dealing [...] Method Room Air Charges/Coding Procedures Integumentary 111xxx-113xx: 65281 Mihaela subq tissue 20 sq cm/< Debridement [...] Date Recorded By Document 01/22/23 13:45 DL [id number] 01/22/23 13:48 DL Document 02/05/23 13:10 BMF [id number] 02/05/23 13:15 BMF 01/22/23 02/05/23 13:45 13:10 - Today's Visit Information Type of service Follow-up Visit Follow-up Visit (Physician/LEAD MECHANIC (Physician/LEAD MECHANIC ) ) Arrival Mode Ambulatory Ambulatory,Cane Transfer [...] Date Recorded By Document 01/22/23 13:45 DL [id number] 01/22/23 13:48 DL Document 02/05/23 13:10 [facility] [id number] 02/05/23 13:15 BM 01/22/23 02/05/23 13:45 13:10 Wound Center Nurse [...] Present (0 Large (67-100%) %) -Granulation Quality [place] -Slough/Fibrin Yes -Necrosis Amt Small (1-33%) Small [...] Recorded Date Recorded By Document 01/22/23 14:22 [id number] 01/22/23 14:23 01/22/23 14:22 Wound Center Nurse [...] Recorded Date Recorded By Document 01/22/23 14:30 [id number] 01/22/23 14:31 DL Document 02/05/23 13:49 [facility] [id number] 02/05/23 13:49 [facility] 01/22/23 02/05/23 14:30 13:49 Wound Care [...] 1437 <Electronically signed by Bonny Glynn NP [employer]> Cosigner Signature (if applicable): CC: ~ Signed [facility] Work Phone: 1([phone]) 156-645906-05-2023 Progress note Author Bonny Glynn [facility] January 22, 2023 3:47pm Note Date/Time January 22, 2023 3:31p m [facility] [address] [place] [address] Progress Note - Wound Care 01/22/23 1529 MR#: [id number] Acct: [id number] Name: PEDRO HILLMAN Rep #:[id number] : 1945 78 From: Bonny garcia NP [employer] PCP: Dr. Tonio Fajardo, DO Status:REG RCR Location: History of Present Illness Date of Service: 01/22/23 Chief Complaint: right medial foot ulcer History of Wound: This 78-year-old male returns to the wound healing clinic for reoccurrence of a right medial foot ulcer. Wound care has been Moistened Cass covered with Chetopa SAP dressing. Patient diabetic neuropathic. Patient dealing [...] 13:45 01/22/23 13:45 Charges/Coding Procedures Integumentary 111xxx-113xx: 82078 Mihaela subq tissue 20 sq cm/< Debridement [...] Date Recorded By Document 01/22/23 13:45 DL [id number] 01/22/23 13:48 DL 01/22/23 13:45 WC - Today's Visit Information Type of service Follow-up Visit (Physician/LEAD MECHANIC ) Arrival Mode Ambulatory Transfer Assistance None [...] Date Recorded By Document 01/22/23 13:45 DL [id number] 01/22/23 13:48 DL 01/22/23 13:45 Wound Center [...] Recorded Date Recorded By Document 01/22/23 14:22 [id number] 01/22/23 14:23 01/22/23 14:22 Wound Center Nurse [...] Date Recorded By Document 01/22/23 14:30 DL [id number] 01/22/23 14:31 DL 01/22/23 14:30 Wound Care [...] if develop any questions or concerns. 01/22/23 7915 <Electronically signed by Bonny Glynn NP [employer]> Cosigner Signature (if applicable): CC: ~ Signed [facility] Work Phone: [phone]) 754-905005-22-2023 [facility], [facility] 2:17pm Note Date/Time January 08, 2023 2:10p m [facility] [address] [place] [address] Progress Note - Wound Care 01/08/23 1407 MR#: [id number] Acct: [id number] Name: PEDRO HILLMAN Rep #:[id number] : 1945 77 From: Bonny garcia NP [employer] PCP: Dr. Tonio Fajardo, DO Status:REG RCR Location: History of Present Illness Date of Service: 01/08/23 Chief Complaint: right medial foot ulcer History of Wound: This 77-year-old male returns to the wound healing clinic for reoccurrence of a right medial foot ulcer. Wound care has been Moistened Cass covered with Chetopa SAP dressing. Patient diabetic neuropathic. Patient dealing [...] 14:53 01/08/23 13:37 Charges/Coding Procedures Integumentary 111xxx-113xx: 72765 Mihaela subq tissue 20 sq cm/< Debridement [...] Date Recorded By Document 12/18/22 13:20 PL [id number] 12/18/22 13:27 PL Document 12/25/22 14:53 DORA [id number] 12/25/22 14:54 DORA Document 01/08/23 13:37 AK [id number] 01/08/23 13:39 AK 12/18/22 12/25/22 01/08/23 13:20 14:53 13:37 - Today's Visit Information Type of service Follow-up Visit Follow-up Visit Follow-up Visit (Physician/LEAD MECHANIC (Physician/LEAD MECHANIC (Physician/LEAD MECHANIC ) ) ) Arrival Mode Ambulatory Ambulatory [...] Date Recorded By Document 12/18/22 13:20 PL [id number] 12/18/22 13:27 PL Document 12/25/22 14:53 JF [id number] 12/25/22 14:54 JF Document 01/08/23 13:37 AK [id number] 01/08/23 13:39 AK 12/18/22 12/25/22 01/08/23 13:20 [...] (34-66%) Small (1-33%) Medium (34-66%) -Granulation Quality [place] Pale -Slough/Fibrin No Yes Yes -Necrosis Amt [...] Date Recorded By Document 12/18/22 13:51 DORA [id number] 12/18/22 13:53 Document 12/25/22 15:00 [id number] 12/25/22 15:10 Document 01/08/23 14:01 [id number] 01/08/23 14:02 12/18/22 12/25/22 01/08/23 13:51 15:00 [...] Date Recorded By Document 12/18/22 14:07 PL [id number] 12/18/22 14:07 PL Document 12/25/22 15:20 DL [id number] 12/25/22 15:20 DL 12/18/22 12/25/22 14:07 15:20 [...] 1417 <Electronically signed by Bonny Glynn NP [employer]> Cosigner Signature (if applicable): CC: ~ Signed [facility] Work Phone: 1(233) 942-492705-14-[address] Ochoa [facility] December 31, 2022 12:58am Note Date/Time December 30, 2022 11:08 pm [facility] [address] [place] [address] Emergency Department Summary 12/30/22 MR#: [id number] Acct: [id number] Name: PEDRO HILLMAN Rep #:[id number] : 1945 77 From: Chris Ochoa MD [...] History Anemia Atherosclerosis of coronary artery of tangirnaq heart without angina pectoris BPH (benign prostatic [...] extremities. Nontender. No edema. No cellulitis. 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 Normal dorsi plantarflexion. Neurologically is awake [...] 83.3 H Lymph % (Auto) 6.4 L [place] % (Auto) 9.1 Eos % (Auto) 0.2 [...] Color Urine Clarity Urine pH Ur Specific [place] Urine Protein Urine Glucose (UA) Urine Ketones Urine Occult Blood Urine Nitrite Urine Bilirubin Urine Urobilinogen Ur Leukocyte Esterase Urine RBC Urine WBC Ur Squamous Epith Cells Urine Bacteria Urine Mucus 12/30/22 12/30/22 22:50 23:59 WBC RBC Hgb Hct MCV MCH MCHC RDW Std Deviation RDW Coeff of Reggie Plt Count MPV Immature Gran % (Auto) Neut % (Auto) Lymph % (Auto) Sab[place] % (Auto) Eos % (Auto) Baso % [...] Clarity Clear Urine pH 7.0 Ur Specific [place] 1.005 Urine Protein 100 H Urine Glucose [...] Reading Location ID and State: [facility] / [place] Tel , Service support , Chest x-ray, [...] Care Provider: Tonio Fajardo Referrals: Tonio Fajardo, [Primary Care Provider] - 3-5 Days Activity [...] your Primary Care Provider. Call [facility] ([phone]) or report to the closest Emergency Room. Call 911 if necessary. 12/31/22 0058 <Electronically signed by Chris Ochoa MD> Cosigner Signature (if applicable): CC: Dr. Tonio Fajardo DO ~ Signed [facility] Work Phone: 1(968) 131-648505-08-2023 Progress note Author Bonnyparris Glynn [facility] December 25, 2022 3:36pm Note Date/Time December 25, 2022 3:36pm [facility] [address] [place] [address] Progress Note - Wound Care 12/25/22 1531 MR#: [id number] Acct: [id number] Name: PEDRO HILLMAN Rep #:[id number] : 1945 77 From: Bonny garcia [employer]C PCP: Dr. Tonio Fajardo DO Status:REG RCR Location: History of Present Illness Date of Service: 12/25/22 Chief Complaint: right medial foot ulcer History of Wound: This 77-year-old male returns to the wound healing clinic for reoccurrence of a right medial foot ulcer. Wound care has been Moistened Cass covered with Chetopa SAP dressing. Patient diabetic neuropathic. Patient dealing [...] 14:53 12/25/22 14:53 Charges/Coding Procedures Integumentary 111xxx-113xx: 21698 Mihaela subq tissue 20 sq cm/< Debridement [...] Date Recorded By Document 12/18/22 13:20 KIM [id number] 12/18/22 13:27 PL Document 12/25/22 14:53 DORA [id number] 12/25/22 14:54 DORA 12/18/22 12/25/22 13:20 14:53 - Today's Visit Information Type of service Follow-up Visit Follow-up Visit (Physician/LEAD MECHANIC (Physician/LEAD MECHANIC ) ) Arrival Mode Ambulatory Ambulatory Transfer [...] Date Recorded By Document 12/18/22 13:20 PL [id number] 12/18/22 13:27 PL Document 12/25/22 14:53 [id number] 12/25/22 14:54 JF 12/18/22 12/25/22 13:20 14:53 Wound Center Nurse [...] Amt Medium (34-66%) Small (1-33%) -Granulation Quality [place] -Slough/Fibrin No Yes -Necrosis Amt Medium (34-66%) [...] Recorded Date Recorded By Document 12/18/22 13:51 [id number] 12/18/22 13:53 Document 12/25/22 15:00 [id number] 12/25/22 15:10 12/18/22 12/25/22 13:51 15:00 Wound [...] Date Recorded By Document 12/18/22 14:07 PL [id number] 12/18/22 14:07 PL Document 12/25/22 15:20 DL [id number] 12/25/22 15:20 DL 12/18/22 12/25/22 14:07 15:20 [...] 1536 <Electronically signed by Bonny Glynn NP [employer]> Cosigner Signature (if applicable): CC: ~ Signed [facility] Work Phone: [phone]) 966-601905-01-2023 Progress note Author Bonnyparris Glynn [facility] December 18, 2022 2:23pm Note Date/Time December 18, 2022 2:23pm [facility] [address] [place] [address] Progress Note - Wound Care 12/18/22 1419 MR#: [id number] Acct: [id number] Name: PEDRO HILLMAN Rep #:[id number] : 1945 77 From: Bonny garcia NP [employer] PCP: Dr. Tonio Fajardo, DO Status:REG RCR Location: History of Present Illness Date of Service: 12/18/22 Chief Complaint: right medial foot ulcer History of Wound: This 77-year-old male returns to the wound healing clinic for reoccurrence of a right medial foot ulcer. Wound care has been Moistened Cass covered with Chetopa SAP dressing. Patient diabetic neuropathic. Patient dealing [...] 13:20 12/18/22 13:20 Charges/Coding Procedures Integumentary 111xxx-113xx: 35653 Mihaela subq tissue 20 sq cm/< Debridement [...] Date Recorded By Document 12/18/22 13:20 PL [id number] 12/18/22 13:27 PL 12/18/22 13:20 URBAN - Today's Visit Information Type of service Follow-up Visit (Physician/LEAD MECHANIC ) Arrival Mode Ambulatory Transfer Assistance None [...] Date Recorded By Document 12/18/22 13:20 KIM [id number] 12/18/22 13:27 KIM 12/18/22 13:20 Wound Center [...] Serosanguineous -Granulation Amt Medium (34-66%) -Granulation Quality [place] -Slough/Fibrin No -Necrosis Amt Medium (34-66%) -Necrotic [...] Recorded Date Recorded By Document 12/18/22 13:51 [id number] 12/18/22 13:53 DORA 12/18/22 13:51 Wound Center [...] Recorded Date Recorded By Document 12/18/22 14:07 [id number] 12/18/22 14:07 KIM 12/18/22 14:07 Wound Care [...] 1423 <Electronically signed by Bonny Glynn NP [employer]-C> Cosigner Signature (if applicable): CC: ~ Signed [facility] Work Phone: 1(759) 439-317604-27-2023 Progress note Author Bonny Glynn [facility] December 14, 2022 2:56pm Note Date/Time December 11, 2022 3:2 7pm [facility] [address] [place] [address] Progress Note - Wound Care 12/11/22 1527 MR#: [id number] Acct: [id number] Name: PEDRO HILLMAN Rep #:[id number] : 1945 77 From: Bonny garcia [employer]C PCP: Dr. Tonio Fajardo, DO Status:REG RCR Location: History of Present Illness Date of Service: 12/11/22 Chief Complaint: right medial foot ulcer History of Wound: This 77-year-old male returns to the wound healing clinic for reoccurrence of a right medial foot ulcer. Wound care has been Moistened Cass covered with Chetopa SAP dressing. Patient diabetic neuropathic. Patient dealing [...] Method Room Air Charges/Coding Procedures Integumentary 111xxx-113xx: 62321 Mihaela subq tissue 20 sq cm/< Debridement [...] Date Recorded By Document 11/20/22 14:43 DL [id number] 11/20/22 14:49 DL Document 11/27/22 14:25 BMF [id number] 11/27/22 14:27 BMF Document 12/06/22 11:35 DL [id number] 12/06/22 11:39 DL Document 12/11/22 13:12 BMF [id number] 12/11/22 13:21 BMF 11/20/22 11/27/22 12/06/22 14:43 14:25 11:35 WC - Today's Visit Information Type of service Follow-up Visit Follow-up Visit (Physician/LEAD MECHANIC (Physician/LEAD MECHANIC ) ) Arrival Mode Ambulatory,Cane Ambulatory Transfer [...] Visit Information Type of service Follow-up Visit (Physician/LEAD MECHANIC ) Arrival Mode Ambulatory,Cane Transfer Assistance None [...] Date Recorded By Document 11/20/22 14:43 DL [id number] 11/20/22 14:49 DL Document 11/27/22 14:25 BMF [id number] 11/27/22 14:27 BMF Document 12/06/22 11:35 DL [id number] 12/06/22 11:39 DL Document 12/11/22 13:12 BMF [id number] 12/11/22 13:21 BMF 11/20/22 11/27/22 12/06/22 14:43 [...] Amt Small (1-33%) Small (1-33%) -Granulation Quality [place] Pale -Slough/Fibrin -Necrosis Amt Small (1-33%) Small [...] Recorded Date Recorded By Document 11/20/22 15:00 [id number] 11/20/22 15:09 JF Edit Result 11/20/22 15:00 JF (1) [id number] 11/20/22 15:18 JF Edit Result 11/20/22 15:00 JF (2) [id number] 11/20/22 15:20 Document 11/27/22 14:50 [id number] 11/27/22 15:02 Document 12/06/22 11:46 [id number] 12/06/22 11:57 Document 12/11/22 13:30 [id number] 12/11/22 13:33 JF (1) #9 Right Inferior [...] => 08/20/27 - Product Lot Number => [id number] - Percent Used => 100 - Lot number of Saline Used => [id number] 11/20/22 11/27/22 12/06/22 15:00 14:50 11:46 Wound [...] Date 08/20/27 08/20/27 09/20/27 -Product Lot Number [id number] -Percent Used 100 100 100 -Lot number of Saline Used [id number] -Bleeding Controlled with Pressure Pressure Pressure -Treatment [...] Recorded Date Recorded By Document 11/20/22 15:35 [id number] 11/20/22 15:36 Document 11/27/22 15:02 [id number] 11/27/22 15:03 Document 12/06/22 11:57 [id number] 12/06/22 11:58 Document 12/11/22 13:57 DL [id number] 12/11/22 13:58 DL 11/20/22 11/27/22 12/06/22 15:35 [...] if develop any questions or concerns. 12/14/22 0155 <Electronically signed by Bonny Glynn NP [employer]-C> Cosigner Signature (if applicable): CC: ~ Signed [facility] Work Phone: 1(595) 990-815104-19-2023 Progress note Author Bonnyparris Glynn [facility] December 06, 2022 12:09pm Note Date/Time December 06, 2022 12: 09pm [facility] [address] [place] [address] Progress Note - Wound Care 12/06/22 1205 MR#: [id number] Acct: [id number] Name: PEDRO HILLMAN Rep #:[id number] : 1945 77 From: Bonny garcia NP [employer] PCP: Dr. Tonio Fajardo, DO Status:REG RCR Location: History of Present Illness Date of Service: 12/06/22 Chief Complaint: right medial foot ulcer History of Wound: This 77-year-old male returns to the wound healing clinic for reoccurrence of a right medial foot ulcer. Wound care has been Moistened Cass covered with Chetopa SAP dressing. Patient diabetic neuropathic. Patient dealing [...] 11:35 12/06/22 11:35 Charges/Coding Procedures Integumentary 150xxx-152xx: 58355 Skin sub graft face/nk/hf/g Debridement Note Debridement [...] Date Recorded By Document 11/20/22 14:43 DL [id number] 11/20/22 14:49 Document 11/27/22 14:25 [facility] [id number] 11/27/22 14:27 [facility] Document 12/06/22 11:35 DL [id number] 12/06/22 11:39 DL 11/20/22 11/27/22 12/06/22 14:43 14:25 11:35 - Today's Visit Information Type of service Follow-up Visit Follow-up Visit (Physician/LEAD MECHANIC (Physician/LEAD MECHANIC ) ) Arrival Mode Ambulatory,Cane Ambulatory Transfer [...] Date Recorded By Document 11/20/22 14:43 DL [id number] 11/20/22 14:49 DL Document 11/27/22 14:25 [facility] [facility] [id number] 11/27/22 14:27 [facility] Document 12/06/22 11:35 DL [id number] 12/06/22 11:39 DL 11/20/22 11/27/22 12/06/22 14:43 [...] Amt Small (1-33%) Small (1-33%) -Granulation Quality [place] Pale -Necrosis Amt Small (1-33%) Small (1-33%) [...] Recorded Date Recorded By Document 11/20/22 15:00 [id number] 11/20/22 15:09 Edit Result 11/20/22 15:00 JF (1) [id number] 11/20/22 15:18 JF Edit Result 11/20/22 15:00 JF (2) [id number] 11/20/22 15:20 Document 11/27/22 14:50 [id number] 11/27/22 15:02 JF Document 12/06/22 11:46 [id number] 12/06/22 11:57 JF (1) #9 Right Inferior [...] => 08/20/27 - Product Lot Number => [id number] - Percent Used => 100 - Lot number of Saline Used => [id number] 11/20/22 11/27/22 12/06/22 15:00 14:50 11:46 Wound [...] Date 08/20/27 08/20/27 09/20/27 -Product Lot Number [id number] -Percent Used 100 100 100 -Lot number of Saline Used [id number] -Bleeding Controlled with Pressure Pressure Pressure -Treatment [...] Recorded Date Recorded By Document 11/20/22 15:35 [id number] 11/20/22 15:36 Document 11/27/22 15:02 [id number] 11/27/22 15:03 Document 12/06/22 11:57 [id number] 12/06/22 11:58 11/20/22 11/27/22 12/06/22 15:35 15:02 [...] 1209 <Electronically signed by Bonny Glynn NP [employer]-C> Cosigner Signature (if applicable): CC: ~ Signed [facility] Work Phone: 1(722) 335-465104-11-2023 Progress note Author Bonny Glynn [facility] November 28, 2022 5:24pm Note Date/Time November 27, 2022 3:1 4pm [facility] [address] [place] [address] Progress Note - Wound Care 11/27/22 1513 MR#: [id number] Acct: [id number] Name: PEDRO HILLMAN Rep #:[id number] : 1945 77 From: Bonny garcia [employer]-C PCP: Dr. Tonio Fajardo, DO Status:REG RCR Location: History of Present Illness Date of Service: 11/27/22 Chief Complaint: right medial foot ulcer History of Wound: This 77-year-old male returns to the wound healing clinic for reoccurrence of a right medial foot ulcer. Wound care has been Moistened Cass covered with Chetopa SAP dressing. Patient diabetic neuropathic. Patient dealing [...] 14:43 11/27/22 14:25 Charges/Coding Procedures Integumentary 150xxx-152xx: 73414 Skin sub graft face/nk/hf/g Debridement Note Debridement [...] Date Recorded By Document 11/20/22 14:43 DL [id number] 11/20/22 14:49 DL Document 11/27/22 14:25 BMF [id number] 11/27/22 14:27 BMF 11/20/22 11/27/22 14:43 14:25 - Today's Visit Information Type of service Follow-up Visit Follow-up Visit (Physician/LEAD MECHANIC (Physician/LEAD MECHANIC ) ) Arrival Mode Ambulatory,Cane Ambulatory Transfer [...] Date Recorded By Document 11/20/22 14:43 DL [id number] 11/20/22 14:49 DL Document 11/27/22 14:25 BMF [id number] 11/27/22 14:27 BMF 11/20/22 11/27/22 14:43 14:25 [...] Thickened -Granulation Amt Small (1-33%) -Granulation Quality [place] -Necrosis Amt Small (1-33%) -Necrotic Tissue Type [...] Date Recorded By Document 11/20/22 15:00 DORA [id number] 11/20/22 15:09 JF Edit Result 11/20/22 15:00 JF (1) [id number] 11/20/22 15:18 JF Edit Result 11/20/22 15:00 JF (2) [id number] 11/20/22 15:20 JF Document 11/27/22 14:50 JF [id number] 11/27/22 15:02 JF (1) #9 Right Inferior [...] => 08/20/27 - Product Lot Number => [id number] - Percent Used => 100 - Lot number of Saline Used => [id number] 11/20/22 11/27/22 15:00 14:50 Wound Center Nurse [...] -Expiration Date 08/20/27 08/20/27 -Product Lot Number [id number] -Percent Used 100 100 -Lot number of Saline Used [id number] -Bleeding Controlled with Pressure Pressure -Treatment Response [...] Date Recorded By Document 11/20/22 15:35 DL [id number] 11/20/22 15:36 DL Document 11/27/22 15:02 [id number] 11/27/22 15:03 11/20/22 11/27/22 15:35 15:02 Wound [...] 11/28/221723 <Electronically signed by Bonny Glynn NP [employer]-C> Cosigner Signature (if applicable): CC: ~ Signed [facility] Work Phone: 1(268) 933-736504-10-2023 Progress note Author Bonny Glynn [facility] November 26, 2022 10:29pm Note Date/Time November 20, 2022 4:18 pm [facility] [address] [place] [address] Progress Note - Wound Care 11/20/22 1618 MR#: [id number] Acct: [id number] Name: PEDRO HILLMAN Rep #:[id number] : 1945 77 From: Bonny garcia [employer]C PCP: Dr. Tonio Fajardo, DO Status:REG RCR Location: History of Present Illness Date of Service: 11/20/22 Chief Complaint: right medial foot ulcer History of Wound: This 77-year-old male returns to the wound healing clinic for reoccurrence of a right medial foot ulcer. Wound care has been Moistened Cass covered with Chetopa SAP dressing. Patient diabetic neuropathic. Patient dealing [...] 14:43 11/20/22 14:43 Charges/Coding Procedures Integumentary 150xxx-152xx: 44155 Skin sub graft face/nk/hf/g Debridement Note Debridement [...] Date Recorded By Document 11/20/22 14:43 DL [id number] 11/20/22 14:49 DL 11/20/22 14:43 WC - Today's Visit Information Type of service Follow-up Visit (Physician/LEAD MECHANIC ) Arrival Mode Ambulatory,Cane Transfer Assistance None [...] Date Recorded By Document 11/20/22 14:43 DL [id number] 11/20/22 14:49 DL 11/20/22 14:43 Wound Center Nurse 1 #9 Right Inferior Hallux -Current Size (cm) - Length 0.2 -Current Size (cm) - Width 0.3 -Current Size (cm) - Depth 0.2 -Total Square Cm 0.06 -Photo Taken No -Exudate Amt Small -Exudate Type Serosanguineous -Wound Margin Thickened -Granulation Amt Small (1-33%) -Granulation Quality [place] -Necrosis Amt Small (1-33%) -Necrotic Tissue Type [...] Date Recorded By Document 11/20/22 15:00 DORA [id number] 11/20/22 15:09 JF Edit Result 11/20/22 15:00 JF (1) [id number] 11/20/22 15:18 JF Edit Result 11/20/22 15:00 JF (2) [id number] 11/20/22 15:20 JF (1) #9 Right Inferior [...] => 08/20/27 - Product Lot Number => [id number] - Percent Used => 100 - Lot number of Saline Used => [id number] 11/20/22 15:00 Wound Center Nurse 2 -Time [...] Disc -Expiration Date 08/20/27 -Product Lot Number [id number] -Percent Used 100 -Lot number of Saline Used [id number] -Bleeding Controlled with Pressure -Treatment Response Procedure [...] Date Recorded By Document 11/20/22 15:35 DL [id number] 11/20/22 15:36 DL 11/20/22 15:35 Wound Care [...] 11/26/222228 <Electronically signed by Bonny Glynn NP [employer]> Cosigner Signature (if applicable): CC: ~ Signed [facility] Work Phone: 1(658) 756-867702-21-2023 Progress note Author Bonny Glynn [facility] October 10, 2022 3:29pm Note Date/Time October 09, 2022 4:10pm [facility] [place] [address] Progress Note - Wound Care 10/09/22 1609 MR#: [id number] Acct: [id number] Name: PEDRO HILLMAN Rep #:[id number] : 1945 77 From: Bonny garcia [employer]-C PCP: Dr. Tonio Fajardo, DO Status:REG RCR Location: History of Present Illness Date of Service: 10/09/22 Chief Complaint: right foot ulcer History of Wound: This 77-year-old male returns to the wound healing clinic for reoccurrence of a right medial foot ulcer. Wound care has been Moistened Cass covered with Chetopa SAP dressing. Patient diabetic neuropathic. Patient dealing [...] Method Room Air Charges/Coding Procedures Integumentary 150xxx-152xx: 41770 Skin sub graft face/nk/hf/g Debridement Note Debridement [...] Date Recorded By Document 09/25/22 14:25 BMF [id number] 09/25/22 14:32 BMF Document 10/02/22 13:28 ML [id number] 10/02/22 13:32 ML Document 10/09/22 12:59 DL [id number] 10/09/22 13:04 DL 09/25/22 10/02/22 10/09/22 14:25 13:28 12:59 WC - Today's Visit Information Type of service Follow-up Visit Follow-up Visit Follow-up Visit (Physician/LEAD MECHANIC (Physician/LEAD MECHANIC (Physician/LEAD MECHANIC ) ) ) Arrival Mode Ambulatory,Cane Cane [...] Date Recorded By Document 09/25/22 14:25 BMF [id number] 09/25/22 14:32 BMF Document 10/02/22 13:28 ML [id number] 10/02/22 13:32 ML Document 10/09/22 12:59 DL [id number] 10/09/22 13:04 DL 09/25/22 10/02/22 10/09/22 14:25 [...] (0 Large (67-100%) %) -Granulation Quality [place] -Slough/Fibrin Yes Yes -Necrosis Amt Small (1-33%) [...] Recorded Date Recorded By Document 09/25/22 14:42 [id number] 09/25/22 14:51 Document 10/02/22 14:14 [id number] 10/02/22 14:17 Document 10/09/22 13:17 [id number] 10/09/22 13:26 09/25/22 10/02/22 10/09/22 14:42 14:14 [...] Date 06/20/27 05/20/27 06/20/27 -Product Lot Number [id number] 026 -Percent Used 100 100 100 -Lot number of Saline Used [id number] -Bleeding Controlled with Pressure Pressure Pressure -Treatment [...] Recorded Date Recorded By Document 09/25/22 14:52 [id number] 09/25/22 14:53 Document 10/02/22 14:18 [id number] 10/02/22 14:19 09/25/22 10/02/22 14:52 14:18 Wound [...] positive for Staphylococcus epidermidis 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 I spoke with his PCP, Dr Fajardo, who was made aware of the results and he said he would treat him from these results. Follow up one week. 10/10/22 1529 <Electronically signed by Bonny Glynn NP [employer]-C> Cosigner Signature (if applicable): CC: ~ Signed [facility] Work Phone: 1(555) 957-223602-14-2023 Progress note Author Bonny Glynn [facility] October 03, 2022 4:51pm Note Date/Time September 26, 2022 1 :17pm [facility] [address] [place] [address] Progress Note - Wound Care 09/25/22 1501 MR#: [id number] Acct: [id number] Name: PEDRO HILLMAN Rep #:[id number] : 1945 77 From: Bonny garcia NP [employer]-C PCP: Dr. Tonio Fajardo, DO Status:REG RCR Location: ADDENDUM by [employer]-C Bonny Glynn on 10/03/22 at 1651 Addendum [place] [address] Procedures Integumentary 150xxx-152xx: 21457 Skin sub graft face/nk/hf/g 10/03/22 1651<Electronically signed by Bonny Glynn NP [employer]-C> Cosigner Signature (if applicable): cc: ~* Signed History of Present Illness Date of Service: 09/25/22 Chief Complaint: right foot ulcer History of Wound: This 77-year-old male returns to the wound healing clinic for reoccurrence of a right medial foot ulcer. Wound care has been Moistened Cass covered with Chetopa SAP dressing. Patient diabetic neuropathic. Patient dealing [...] Method Room Air Charges/Coding Procedures Integumentary 150xxx-152xx: 36431 Skin sub graft trnk/arm/leg Debridement Note Debridement [...] Recorded Date Recorded By Document 09/25/22 14:25 [facility] [id number] 09/25/22 14:32 [facility] 09/25/22 14:25 - Today's Visit Information Type of service Follow-up Visit (Physician/LEAD MECHANIC ) Arrival Mode Ambulatory,Cane Transfer Assistance None [...] Recorded Date Recorded By Document 09/25/22 14:25 [facility] [id number] 09/25/22 14:32 [facility] 09/25/22 14:25 Wound Center Nurse 1 [...] Recorded Date Recorded By Document 09/25/22 14:42 [id number] 09/25/22 14:51 09/25/22 14:42 Wound Center Nurse [...] Disc -Expiration Date 06/20/27 -Product Lot Number [id number] -Percent Used 100 -Lot number of Saline Used [id number] -Bleeding Controlled with Pressure -Treatment Response Procedure [...] Date Recorded By Document 09/25/22 14:52 DORA [id number] 09/25/22 14:53 DORA 09/25/22 14:52 Wound Care [...] 1317 <Electronically signed by Bonny Glynn NP [employer]-C> Cosigner Signature (if applicable): CC: ~ Signed [facility] Work Phone: 1(788) 957-473002-14-2023 Progress note Author Bonny Glynn [facility] October 03, 2022 4:49pm Note Date/Time October 02, 2022 2:57pm [facility] [address] [place] [address] Progress Note - Wound Care 10/02/22 1457 MR#: [id number] Acct: [id number] Name: PEDRO HILLMAN Rep #:[id number] : 1945 77 From: Bonny garcia NP [employer]C PCP: Dr. Tonio Fajardo, DO Status:REG RCR Location: History of Present Illness Date of Service: 10/02/22 Chief Complaint: right foot ulcer History of Wound: This 77-year-old male returns to the wound healing clinic for reoccurrence of a right medial foot ulcer. Wound care has been Moistened Cass covered with Chetopa SAP dressing. Patient diabetic neuropathic. Patient dealing [...] Charges/Coding Visit Charges Office Visits / Consults: 08930 OV L3 Est (25 modifier) Procedures Integumentary 150xxx-152xx: 61331 Skin sub graft face/nk/hf/g Physical Exam Const [...] Recorded Date Recorded By Document 09/25/22 14:25 BM [id number] 09/25/22 14:32 BM Document 10/02/22 13:28 ML [id number] 10/02/22 13:32 ML 09/25/22 10/02/22 14:25 13:28 - Today's Visit Information Type of service Follow-up Visit Follow-up Visit (Physician/LEAD MECHANIC (Physician/LEAD MECHANIC ) ) Arrival Mode Ambulatory,Cane Cane Transfer [...] Recorded Date Recorded By Document 09/25/22 14:25 [facility] [id number] 09/25/22 14:32 BMF Document 10/02/22 13:28 ML [id number] 10/02/22 13:32 ML 09/25/22 10/02/22 14:25 13:28 [...] Recorded Date Recorded By Document 09/25/22 14:42 [id number] 09/25/22 14:51 Document 10/02/22 14:14 [id number] 10/02/22 14:17 09/25/22 10/02/22 14:42 14:14 Wound [...] -Expiration Date 06/20/27 05/20/27 -Product Lot Number [id number] -Percent Used 100 100 -Lot number of Saline Used [id number] -Bleeding Controlled with Pressure Pressure -Treatment Response [...] Recorded Date Recorded By Document 09/25/22 14:52 [id number] 09/25/22 14:53 Document 10/02/22 14:18 [id number] 10/02/22 14:19 09/25/22 10/02/22 14:52 14:18 Wound [...] they should go to the ED. 10/03/22 7472 <Electronically signed by Bonny Glynn NP [employer]-C> Cosigner Signature (if applicable): CC: ~ Signed [facility] Work Phone: [phone]) 530-676401-10-2023 Progress note Author Bonnyparris Glynn [facility] August 29, 2022 3:36pm Note Date/Time August 29, 2022 2 :32pm [facility] [address] [place] [address] Progress Note - Wound Care 08/29/22 1429 MR#: [id number] Acct: [id number] Name: PEDRO HILLMAN Rep #:[id number] : 1945 77 From: Bonny garcia NP [employer]-C PCP: Dr. Tonio Fajardo, DO Status:REG R Location: History of Present Illness Date of Service: 08/29/22 Chief Complaint: right foot ulcer History of Wound: This 77-year-old male returns to the wound healing clinic for reoccurrence of a right medial foot ulcer. Wound care has been Moistened Cass covered with Chetopa SAP dressing. Patient diabetic neuropathic. Patient dealing [...] Method Room Air Charges/Coding Procedures Integumentary 111xxx-113xx: 13539 Mihaela subq tissue 20 sq cm/< Debridement [...] Recorded Date Recorded By Document 08/29/22 13:17 [facility] [id number] 08/29/22 13:22 [facility] 08/29/22 13:17 - Today's Visit Information Type of service Follow-up Visit (Physician/LEAD MECHANIC ) Arrival Mode Ambulatory,Cane Transfer Assistance None [...] Recorded Date Recorded By Document 08/29/22 13:17 [facility] [id number] 08/29/22 13:22 [facility] 08/29/22 13:17 Wound Center Nurse 1 [...] Recorded Date Recorded By Document 08/29/22 13:35 [id number] 08/29/22 13:40 08/29/22 13:35 Wound Center Nurse [...] Date Recorded By Document 08/29/22 13:47 DL [id number] 08/29/22 13:47 DL 08/29/22 13:47 Wound Care [...] Silvercel as the primary dressing covered with Chetopa SAP (secondarydressing) daily after washing foot with [...] concerns. 08/29/22 1536 <Electronically signed by Bonny BENSONC> Cosigner Signature (if applicable): CC: ~ Signed [facility] Work Phone: 1(738) 910-151312-16-2022 Miscellaneous Notes* Telephone Encounter - Liseth Ortiz [...] to call back and advise. Steven Melgar APRN.LEAD MECHANIC documented in this encounterAcmc Healthcare System08-20-2022 Miscellaneous Notes* Telephone Encounter - Jenny Mock - 04/08/2022 2:56 PM EDT Notified pt of results, daughter will call to get information on restrictions. Jenny Mock * Telephone Encounter - Jenny Mock - 04/08/2022 9:18 AM EDT left message on machine to give call back, different number from pharmacy. [phone]. Jenny Mock * Telephone Encounter - Jenny Mock - 04/07/2022 5:48 PM EDT Unable to reach patient. Mailbox full/Mailbox not set up/ Number incorrect. Please try again later. Jenny Mock * Telephone Encounter - Sigrid Monroe LPN - 04/06/2022 6:48 PM EDT Still unable to reach patient and contact center specialist is spouse with same number.Sigrid Monroe LPN [...] symptoms; ER if severe. documented in this encounterAcmc Healthcare System08-17-2022 NoteHNO ID: [id number] Author: Steven Melgar APRN.LEAD MECHANIC Service: ? Author Type: Nurse Practitioner Type: [...] WITH FLUA+B, ROUTINE Steven Melgar APRN.[facility]08-17-2022 NoteHNO ID: [id number] Author: RT Jose Eduardo(R) Service: Nuclear Medicine [...] RT Jose Eduardo(R) April 05, 2022 1:55 [facility]08-17-2022 Influenza virus A and B RNA and SARS-CoV-2 (COVID-19) N gene panel BRYAN+probe (Resp)COVID 19 RESULT: SARS-CoV-2 (Agent of COVID-19) Detected by RT-PCR or equivalent method. anatoly ECBZ-DrU-0_Tqcpk [employer] (YASMEEN)_EUA This test was developed and its performance characteristics determined by [facility] [place]. This test has been authorized by FDA under an Emergency Use Authorization (EUA). This test has been validated in accordance with the FDA's Guidance Document Policy for DiagnosticsTesting in Laboratories Certified to Perform High Complexity Testing under CLIA prior to Emergency use Authorization for Coronavirus Disease 2019 during the Public Health Emergency issued on October 18, 2019. Test performed by [facility], [facility] [place], [address] [place] [address]. INFLUENZA A PCR: Negative for Influenza A by RT-PCR INFLUENZA B PCR: Negative for Influenza B by RT-PCRCoshocton Regional Medical CenterComment on above: Performed By: #### [id number] #### [facility] CLIA [id number] [address] [place] [address] STATES OF [id number] Miscellaneous Notes* Telephone Encounter - Steven Melgar APRN.CNP - 04/05/2022 2:58 PM EDT Radiology report faxed to patient's PCP Dr. Tonio Fajardo at [phone]. Confirmation of fax received. Patient was advised to call Dr. Fajardo today for a follow up appointment. Steven Melgar APRN.CNP documented in this encounterAcmc Healthcare System08-17-2022 Instructions* Patient Instructions* Steven Melgar APRN.CNP - [...] ROUTINE Steven Melgar APRN.CNP documented in this encounterAcmc Healthcare System08-17-2022 History of Present illness Narrative* Steven Melgar [...] - COVID WITH FLUA+B, ROUTINE Steven Melgar APRN.LEAD MECHANIC documented in this encounterAcmc Healthcare System08-17-2022 History of Present illness Narrative* Yuliana Olivera RT(R) - 04/05/2022 2:00 PM EDT Radiology Service Progress Note PATIENT NAME: Pedro Hillmna DATE OF SERVICE: April 05, 2022 TIME: [...] 2022 1:55 PM documented in this encounterSt. [facility]'s [facility] note Author Mala Sterling [facility] Note Date/Time March 09, 2025 2:58 pm [facility] Medical Records Department [address] [place] [address] Counseling Note - Pharmacy 03/09/25 1457 MR#: [id number] Acct: [id number] Name: PEDRO HILLMAN Rep #:[id number] : 1945 80 From: Mala Sterling PCP: Dr. Tonio Fajardo, DO Status:ADM IN Y Location: [place] [id number] Counseling Pharmacy Service has performed [...] DAILY@1730 30 days #30 caps 03/09/25 03/09/25 5238 <Electronically signed by Mala Sterling> Date _ Mala Sterling Cosigner Signature (if applicable): Date CC: ~ Signed [facility] Work Phone: Discharge summary Author Casper Iniguez [facility] Note Date/Time April 19, 2025 10 :43am [facility] Medical Records Department [address] [place] [address] Emergency Department Summary 04/19/25 MR#: [id number] Acct: [id number] Name: PEDRO HILLMAN Rep #:[id number] : 1945 80 From: Casper Pyle PCP: Dr. Tonio Fajardo, DO Status:REG ER Location: ED HPI History of Present Illness Chief [facility]: [facility] Medical History Presence of cardiac pacemaker Peripheral arterial disease Other persistent atrial fibrillation New onset atrial flutter COVID Wears hearing aid in both ears Former smoker Coronary artery disease Peripheral vascular occlusive disease BPH (benign prostatic hyperplasia) Chronic kidney disease, stage 3 Atherosclerosis of coronary artery of tangirnaq heart without angina pectoris Hyperlipidemia Lower extremity [...] hr (Mucinex) #20 tabs OXYGEN - Supplemental ([facility] 04/09/25 Unknown History INFORMATIONAL USE ONLY) [...] Notes his pacemaker was placed recently at [facility]. Denies any pain over pacemaker site. REVIEW [...] records reviewed: Pacemaker was placed here with [facility] on 04/09/[address] Hsu Reviewed prior [...] - Noted patient safe to stay at [facility]. States he should be able to evaluate [...] to PCU This note was generated with [employer] dictation software. It may contain incorrectwords, spelling, [...] 75.0 H Lymph % (Auto) 9.1 L Sabine % (Auto) 11.3 H Eos % (Auto) [...] Reading Location: [facility] Discharge Plan Triage Chief Complaint: Syncope ED [...] Qty: 60 0RF (DME) OXYGEN - Supplemental ([facility] INFORMATIONAL USE ONLY) Gas See Rx [...] DO [Primary Care Provider] - Print Language: Trinidadian What to do if you have Problems For any increased pain, shortness of breath, bleeding, nausea or vomiting, chestpain, or any unexpected problems, contact your Primary Care Provider. Call [facility] ([phone]) or report to the closest Emergency Room. Call 911 if necessary. 04/19/25 1043 <Electronically signed by Casper Iniguez DO> Cosigner Signature (if applicable): CC: Dr. Tonio Fajardo DO ~ Signed [facility] Work Phone: Discharge summary Author Tonio Mccallum [facility] Note Date/Time April 23, 2025 5:03pm [facility] Medical Records Department [address] [place] [address] Transfer to [facility] MR#: [id number] Acct: [id number] Name: PEDRO HILLMAN Rep #:[id number] : 1945 80 From: Tonio Mccallum DO PCP: Dr. Tonio Fajardo DO Status:ADM IN Certification of patient admission REQUIRED AT TIME OF ADMISSION. I CERTIFY THAT POST-HOSPITAL F SERVICES ARE REQUIRED TO BE GIVEN ON AN IN-PATIENT BASIS BECAUSE OF THE ABOVE NAMED PATIENT'S NEED FOR [facility] CARE ON A CONTINUING BASIS FOR THE CONDITION(S) FOR WHICH HE/SHE WAS RECEIVING IN-PATIENT HOSPITAL SERVICES PRIOR TO HIS/HER TRANSFER TO THE [facility]. 04/23/25 1703<Electronically signed by Tonio Mccallum [...] will be given to the patient with Octapoly. Nutritional services is participating inhis care Total [...] mg PO DAILY (DME) OXYGEN - Supplemental ([facility] INFORMATIONAL USE ONLY) Gas See Rx [...] in before D/C Order can be placed): [facility] 04/23/25 1703 <Electronically signed by Tonio Mccallum DO> Cosigner Signature (if applicable): CC: Dr. Kwaku Narayanan DO; Dr. 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 Venous insufficiency chronic Ulcer of right foot with fat layer exposed resolved [facility] Work Phone: Evaluation note* Diagnosis Onset [...] right foot with fat layer exposed resolved [facility] Work Phone: Evaluation note* Diagnosis Onset [...] right foot with fat layer exposed resolved [facility] Work Phone: Evaluation note* Diagnosis Onset [...] 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 [facility] Work Phone: Evaluation note* Diagnosis Onset [...] right foot with fat layer exposed resolved [facility] Work Phone: Evaluation note* Diagnosis Burning with urination- Primary Dysuria Acute cough Suspected COVID-19 virus infection [facility] Onset Date Resolution Status Localized [...] acute Nicotine dependence, cigarettes, in remission acute [facility] Work Phone: Evaluation note* Diagnosis Onset [...] right foot with fat layer exposed resolved [facility] Work Phone: Evaluation note* Diagnosis Onset [...] right foot with fat layer exposed resolved [facility] Work Phone: Evaluation note* Diagnosis Onset [...] of upper lobe of right lung acute [facility] Work Phone: Evaluation note* Diagnosis Onset [...] of upper lobe of right lung acute [facility] Work Phone: Evaluation note* Diagnosis Onset [...] of upper lobe of right lung acute [facility] Work Phone: Evaluation note* Diagnosis Onset [...] chronic Presence of aortocoronary bypass graft 2012 [facility] Work Phone: Evaluation note* Diagnosis [...] right foot with fat layer exposed chronic [facility] Work Phone: Evaluation note* Diagnosis Onset [...] right foot with fat layer exposed chronic [facility] Work Phone: Evaluation note* Diagnosis Onset [...] layer exposed chronic Shortness of breath chronic [facility] Work Phone: Evaluation note* Diagnosis Onset [...] right lung chronic 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 [facility] Work Phone: Evaluation note* Diagnosis Onset [...] of upper lobe of right lung chronic [facility] Work Phone: Evaluation note* Diagnosis Onset [...] right foot with fat layer exposed chronic [facility] Work Phone: Evaluation note* Diagnosis Onset [...] right foot with fat layer exposed chronic [facility] Work Phone: Evaluation note* Diagnosis Onset [...] right foot with fat layer exposed chronic [facility] Work Phone: Evaluation note* Diagnosis Onset [...] right foot with fat layer exposed chronic [facility] Work Phone: Evaluation note* Diagnosis Onset [...] right foot with fat layer exposed chronic [facility] Work Phone: Evaluation note* Diagnosis Onset [...] right foot with fat layer exposed resolved [facility] Work Phone: Evaluation note* Diagnosis Onset [...] right foot with fat layer exposed chronic [facility] Work Phone: Evaluation note* Diagnosis Onset [...] of upper lobe of right lung chronic [facility] Work Phone: Evaluation note* Diagnosis Onset Date Resolution Status Irregular heart rate acute COPD (chronic obstructive pulmonary disease) chronic 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 Plenty of fluids and rest today do not get dehydrated. Return if you are feeling a lot worse or too weak to get around her house. Follow-up with your doctor in the next several days to ensure you are improving. [facility] Work Phone: Hospital Discharge instructions Additional Instructions 1. Keep your postoperative dressing clean dry and intact 2. Continue strict glycemic control. 3. Partial weightbearing to heel with surgical shoe, use walker or crutches 4. Reach out to Dr. Suárez with any questions or concerns and follow-up in 1 week in clinic. [facility]: Reason for referral (narrative)No reason for referral information availableWPro[facility] Work Phone: Chief Complaint and Reason [...] 2024 12:50pm Other persistent atrial fibrillation Feb [place] 2024 12:50pm Hyperlipidemia September 25, 2024 1 [...] 04 7:57pm Atherosclerosis of coronary artery of tangirnaq heart without angina pectoris March 04, 2025 [...] 2025 7:57pm Atherosclerosis of coronary artery of tangirnaq heart without angina pectoris March 04, 2025 [...] 15, 2025 4:56 pm 6 M FU/S/P [facility] 03/09March 17, 2025 12: 51pm Reason [...] 2025 7:57pm Atherosclerosis of coronary artery of tangirnaq heart without angina pectoris March 04, 2025 [...] 15, 2025 4:56 pm 6 M FU/S/P [facility] 03/09March 17, 2025 12: 51pm atrial [...] 15, 2025 4:56 pm 6 M FU/S/P [facility] 03/09March 17, 2025 12: 51pm atrial [...] 2025 7:57pm Atherosclerosis of coronary artery of tangirnaq heart without angina pectoris March 04, 2025 [...] 15, 2025 4:56 pm 6 M FU/S/P [facility] 03/09March 17, 2025 12: 51pm atrial [...] 2025 7:57pm Atherosclerosis of coronary artery of tangirnaq heart without angina pectoris March 04, 2025 [...] 15, 2025 4:56 pm 6 M FU/S/P [facility] 03/09March 17, 2025 12: 51pm atrial [...] 15, 2025 4:56 pm 6 M FU/S/P [facility] 03/09March 17, 2025 12: 51pm atrial [...] 2025 7:57pm Atherosclerosis of coronary artery of tangirnaq heart without angina pectoris March 04, 2025 [...] 7:55pm Presence of aortocoronary bypass graft A ust 2024 7:55pm Heart block AV complete April 10 11:14am Presence of cardiac pacemaker March 11:14am Acute heart failure with pre served ejection fraction (HFpEF) April 10, 2025 6:33pm Acute respiratory failure with hypoxia A ust 2024 6:33pm DARIUSZ (acute kidney injury) April [...] FLUTTER; WITH RVR AND OHMA VATED March 04, 2025 7:57pm AE CHF, [...] 15, 2025 4:56 pm 6 M FU/S/P [facility] 03/09March 17, 2025 12: 51pm atrial [...] 15, 2025 4:56 pm 6 M FU/S/P [facility] 03/09March 17, 2025 12: 51pm atrial [...] 2025 7:57pm Atherosclerosis of coronary artery of tangirnaq heart without angina pectoris March 04, 2025 [...] failure with pre served ejection fraction (HFpEF) Golinda 22nd, 2025 6:33pm Acute respiratory failure with hypoxia [...] 15, 2025 4:56 pm 6 M FU/S/P [facility] 03/09March 17, 2025 12: 51pm atrial [...] 15, 2025 4:56 pm 6 M FU/S/P [facility] 03/09March 17, 2025 12: 51pm atrial [...] 2025 7:57pm Atherosclerosis of coronary artery of tangirnaq heart without angina pectoris March 04, 2025 [...] 15, 2025 4:56 pm 6 M FU/S/P [facility] 03/09March 17, 2025 12: 51pm atrial [...] 2025 7:57pm Atherosclerosis of coronary artery of tangirnaq heart without angina pectoris March 04, 2025 7:57pm CHF exacerbation March 04, 2025 7:57 pm Hypertension March 04, 2025 7:57 pm Acute on chronic diastolic congestive he art failure March 04, 2025 7:57pm Hyperkalemia Crystal 16th, 2025 7:57 pm Peripheral arterial disease March [...] 2025 7:21pm Recurrent right pleural effusion Septemb er 2024 7:21pm Type 2 diabetes mellitus with [...] 15, 2025 4:56 pm 6 M FU/S/P [facility] 03/09March 17, 2025 12: 51pm atrial [...] 2025 7:57pm Atherosclerosis of coronary artery of tangirnaq heart without angina pectoris March 04, 2025 [...] 6:33pm Acute respiratory failure with hypoxia A ust 2024 6:33pm DARIUSZ (acute kidney injury) April [...] 2025 7:21pm Recurrent right pleural effusion Septemb er 2024 7:21pm Type 2 diabetes mellitus with [...] 15, 2025 4:56 pm 6 M FU/S/P [facility] 03/09March 17, 2025 12: 51pm atrial [...] 2025 7:57pm Atherosclerosis of coronary artery of tangirnaq heart without angina pectoris March 04, 2025 [...] 2025 6 :19pm Orthostatic hypotension April 20 2 025 1:48pm Syncope April 20, 2025 1:48pm (HFpEF) heart failure with preserved eje ction fraction April 23, 2025 7:21pm Atrial fibrillation April 23, 2025 7:21pm BPH (benign prostatic hyperplasia) Septe mber 2024 7:21pm Debility April 23, 2025 7:21pm Dehydration April 23, 2025 7:21pm PAOD (peripheral arterial occlusive dise ase) April 23, 2025 7:21pm Recurrent right pleural effusion Septemb er 2024 7:21pm Type 2 diabetes mellitus with hyperglyce alecia April 23, 2025 7:21pm COPD (chronic obstructive pulmonary dise ase) April 23, 2025 7:21pm Hyperlipidemia April 23, 2025 7:21pm Tachy-brittany syndrome April 23, 2025 7:21pm Orthostatic hypotension April 23, 7:21pm Syncope April 23, 2025 7:21pm Heart block AV complete April 28 025 10:17am Presence of cardiac pacemaker April 28, 2025 10:17am Atrial fibrillation May 04, 2025 2:41pm Advance Directives No Advanced Directives Records Found Advance Directive Response Recorded Date/ Time Advance Directives No February 17 11:03am Living Will No February 17, 2014 1 1:03am Power of Supply Chain Development Manager No February 17, 2014 11:03am Advance Directive Response Recorded Date/ Time Name of Medical Power of Supply Chain Development Manager SON April 14, 2022 8:29am Advance Directives No February 17 4 11:03am Living Will No April 14 8:29am Power of Supply Chain Development Manager Yes April 14 8:29am Advance Directive Response Recorded Date/ Time Name of Medical Power of Supply Chain Development Manager SON April 14, 2022 7:29am Advance Directives No February 17 4 10:03am Living Will No April 14 2 7:29am Power of Supply Chain Development Manager Yes April 14 7:29am Advance Directive Response Recorded Date/ Time Advance Directives No February 17 4 10:03am Living Will No April 14 2 7:29am Power of Supply Chain Development Manager Yes April 14 7:29am Advance Directive Response Recorded Date/ Time Advance Directives No February 17 4 11:03am Living Will No April 14 2 8:29am Power of Supply Chain Development Manager Yes April 14 8:29am Advance Directive Response Recorded Date/ Time Name of Medical Power of Supply Chain Development Manager Ed Shmuelamandashamika December 30, 2022 10:39pm Advance Directives No February 17 11:03am Living Will Yes December 30, 2022 1 0:39pm Power of Supply Chain Development Manager Yes December 30, 2022 10:39pm Advance Directive Response Recorded Date/ Time Advance Directives No February 17 11:03am Living Will Yes December 30, 2022 1 0:39pm Power of Supply Chain Development Manager Yes December 30, 2022 10:39pm Advance Directive Response Recorded Date/ Time Advance Directives No February 17 10:03am Living Will Yes December 30, 2022 9 :39pm Power of Supply Chain Development Manager Yes December 30, 2022 9:39pm Advance Directive Response Recorded Date/ Time Living Will Yes December 30, 2022 1 0:39pm Power of Supply Chain Development Manager Yes December 30, 2022 10:39pm Advance Directives No February 17 11:03am Advance Directive Response Recorded Date/ Time Living Will Yes December 30, 2022 1 0:39pm Do you have a Healthcare Power of Supply Chain Development Manager? Yes December 30, 2022 10:39pm Living Will No April 14 8:29am Do you have a Healthcare Power of Supply Chain Development Manager? Yes April 14, 2022 8:29am Advance Directives No February 17 11:03am Advance Directive Response Recorded Date/ Time Living Will No April 14 8:29am Do you have a Healthcare Pow er of Supply Chain Development Manager? Yes April 14, 2022 8:29am Do you have a Healthcare Pow er of Supply Chain Development Manager? Yes March 04, 2025 2:58pm Name of Medical Power of Supply Chain Development Manager Ed Daja olmstead March 04, 2025 2:58pm Advance Directives No February 17 11:03am Advance Directive Response Recorded Date/ Time Do you have a Healthcare Power of Supply Chain Development Manager? Yes March 04, 2025 9:11pm Name of Medical Power of Supply Chain Development Manager Ed Daja olmstead March 04, 2025 2:58pm Advance Directives No February 17 11:03am Advance Directive Response Recorded Date/ Time Do you have a Healthcare Power of Supply Chain Development Manager? Yes March 04, 2025 9:11pm Name of Medical Power of Supply Chain Development Manager Ed Daja olmstead March 04, 2025 2:58pm Do you have a Healthcare Power of Supply Chain Development Manager? Yes March 15, 2025 5:04pm Name of Medical Power of Supply Chain Development Manager Ed Daja March 15, 2025 5:04pm Advance Directives No February 17 4 11:03am Advance Directive Response Recorded Date/ Time Do you have a Healthcare Pow er of Supply Chain Development Manager? Yes March 04, 2025 9:11pm Name of Medical Power of Supply Chain Development Manager Ed Daja olmstead March 04, 2025 2:58pm Do you have a Healthcare Pow er of Supply Chain Development Manager? Yes April 05, 2025 4:49pm Do you have a Healthcare Pow er of Supply Chain Development Manager? Yes March 15, 2025 5:04pm Name of Medical Power of Supply Chain Development Manager Ed Daja March 15, 2025 5:04pm Advance Directives No February 17 4 11:03am Advance Directive Response Recorded Date/ Time Do you have a Healthcare Pow er of Supply Chain Development Manager? Yes March 04, 2025 9:11pm Name of Medical Power of Supply Chain Development Manager Ed Daja olmstead March 04, 2025 2:58pm Do you have a Healthcare Pow er of Supply Chain Development Manager? Yes April 05, 2025 8:49pm Do you have a Healthcare Pow er of Supply Chain Development Manager? Yes March 15, 2025 5:04pm Name of Medical Power of Supply Chain Development Manager Ed Daja March 15, 2025 5:04pm Advance Directives No February 17 4 11:03am Advance Directive Response Recorded Date/ Time Do you have a Healthcare Pow er of Supply Chain Development Manager? Yes March 04, 2025 9:11pm Name of Medical Power of Supply Chain Development Manager Ed Daja olmstead March 04, 2025 2:58pm Do you have a Healthcare Pow er of Supply Chain Development Manager? Yes April 05, 2025 8:49pm Do you have a Healthcare Pow er of Supply Chain Development Manager? Yes April 12, 2025 6:18pm Do you have a Healthcare Pow er of Supply Chain Development Manager? Yes March 15, 2025 5:04pm Name of Medical Power of Supply Chain Development Manager Ed Daja March 15, 2025 5:04pm Do you have a Healthcare Pow er of Supply Chain Development Manager? Yes April 10, 2025 10:00pm Advance Directives No February 17 11:03am Advance Directive Response Recorded Date/ Time Do you have a Healthcare Pow er of Supply Chain Development Manager? Yes March 04, 2025 9:11pm Name of Medical Power of Supply Chain Development Manager Ed Daja olmstead March 04, 2025 2:58pm Do you have a Healthcare Pow er of Supply Chain Development Manager? Yes April 05, 2025 8:49pm Do you have a Healthcare Pow er of Supply Chain Development Manager? Yes April 12, 2025 6:18pm Do you have a Healthcare Pow er of Supply Chain Development Manager? Yes March 15, 2025 5:04pm Name of Medical Power of Supply Chain Development Manager Ed Daja March 15, 2025 5:04pm Do you have a Healthcare Pow er of Supply Chain Development Manager? Yes April 10, 2025 10:00pm Do you have a Healthcare Pow er of Supply Chain Development Manager? Yes April 17, 2025 6:20pm Name of Medical Power of Supply Chain Development Manager Ed Daja April 17, 2025 6:20pm Do you have a Healthcare Pow er of Supply Chain Development Manager? Yes April 19, 2025 8:42am Advance Directives No February 17 11:03am Advance Directive Response Recorded Date/ Time Do you have a Healthcare Pow er of Supply Chain Development Manager? Yes March 04, 2025 9:11pm Name of Medical Power of Supply Chain Development Manager Ed Daja olmstead March 04, 2025 2:58pm Do you have a Healthcare Pow er of Supply Chain Development Manager? Yes April 05, 2025 8:49pm Do you have a Healthcare Pow er of Supply Chain Development Manager? Yes April 12, 2025 6:18pm Do you have a Healthcare Pow er of Supply Chain Development Manager? Yes March 15, 2025 5:04pm Name of Medical Power of Supply Chain Development Manager Ed Daja March 15, 2025 5:04pm Do you have a Healthcare Pow er of Supply Chain Development Manager? Yes April 10, 2025 10:00pm Do you have a Healthcare Pow er of Supply Chain Development Manager? Yes April 17, 2025 6:20pm Name of Medical Power of Supply Chain Development Manager Ed Daja April 17, 2025 6:20pm Do you have a Healthcare Pow er of Supply Chain Development Manager? Yes April 19, 2025 12:14pm Advance Directives No February 17 4 11:03am Advance Directive Response Recorded Date/ Time Do you have a Healthcare Pow er of Supply Chain Development Manager? Yes March 04, 2025 9:11pm Name of Medical Power of Supply Chain Development Manager Ed Daja olmstead March 04, 2025 2:58pm Do you have a Healthcare Pow er of Supply Chain Development Manager? Yes April 05, 2025 8:49pm Do you have a Healthcare Pow er of Supply Chain Development Manager? Yes April 12, 2025 6:18pm Do you have a Healthcare Pow er of Supply Chain Development Manager? Yes March 15, 2025 5:04pm Name of Medical Power of Supply Chain Development Manager Ed Daja March 15, 2025 5:04pm Do you have a Healthcare Pow er of Supply Chain Development Manager? Yes April 10, 2025 10:00pm Do you have a Healthcare Pow er of Supply Chain Development Manager? Yes April 17, 2025 6:20pm Name of Medical Power of Supply Chain Development Manager Ed Daaj April 17, 2025 6:20pm Do you have a Healthcare Pow er of Supply Chain Development Manager? Yes April 19, 2025 12:14pm Do you have a Healthcare Pow er of Supply Chain Development Manager? Yes April 24, 2025 3:42pm Name of Medical Power of Supply Chain Development Manager paula Sky April 24, 2025 3:42pm Advance Directives No February 17 4 11:03am Advance Directive Response Recorded Date/ Time Do you have a Healthcare Pow er of Supply Chain Development Manager? Yes March 04, 2025 9:11pm Name of Medical Power of Supply Chain Development Manager Ed Daja olmstead March 04, 2025 2:58pm Do you have a Healthcare Pow er of Supply Chain Development Manager? Yes April 05, 2025 8:49pm Do you have a Healthcare Pow er of Supply Chain Development Manager? Yes April 12, 2025 6:18pm Do you have a Healthcare Pow er of Supply Chain Development Manager? Yes May 04, 2025 1:30pm Do you have a Healthcare Pow er of Supply Chain Development Manager? Yes March 15, 2025 5:04pm Name of Medical Power of Supply Chain Development Manager Ed Daja March 15, 2025 5:04pm Do you have a Healthcare Pow er of Supply Chain Development Manager? Yes April 10, 2025 10:00pm Do you have a Healthcare Pow er of Supply Chain Development Manager? Yes April 17, 2025 6:20pm Name of Medical Power of Supply Chain Development Manager Gideon Farnsworth April 17, 2025 6:20pm Do you have a Healthcare Pow er of Supply Chain Development Manager? Yes April 19, 2025 12:14pm Do you have a Healthcare Pow er of Supply Chain Development Manager? Yes April 24, 2025 3:42pm Name of Medical Power of Supply Chain Development Manager paula Sky April 24, 2025 3:42pm Advance [...] or prosecute any alcohol or drug abuse patient.[facility] the event this information is protected by the Federal Confidentiality of Alcohol and Drug Abuse Patient Records regulations: The Federal rules restrict any use of the information to criminally investigate or prosecute any alcohol or drug abuse patient.[facility] System[facility] the event this information is protected by the Federal Confidentiality of Alcohol and Drug Abuse Patient Records regulations: The Federal rules restrict any use of the information to criminally investigate or prosecute any alcohol or drug abuse patient.[facility] System[facility] the event this information is protected by the Federal Confidentiality of Alcohol and Drug Abuse Patient Records regulations: The Federal rules restrict any use of the information to criminally investigate or prosecute any alcohol or drug abuse patient.[facility] System[facility] the event this information is protected by the Federal Confidentiality of Alcohol and Drug Abuse Patient Records regulations: The Federal rules restrict any use of the information to criminally investigate or prosecute any alcohol or drug abuse patient.[facility] Reason for Visit (unrecogniz ed section and content) Reason Comments Results Reason Comments Urinary Problem burning with urinati on x 1 week nasal congestion and drainage x 1 week Reason Comments Results COVID+ Reason Comments Patient Update Care Teams (unrecognized sec tion and content) Acid Etch Operator Relationship Specialty Start Date End Date Tonio Fajardo DO [address] [place] [address] PCP - General Family Practice 04/05/22 Acid Etch Operator Relationship Specialty Start Date End Date Tonio Fajardo [address] [place], [place] [id number] PCP - General Family Practice 04/05/22 Acid Etch Operator Relationship Specialty Start Date End Date Scotty Tonio Ovalle [address] [place], [place] [id number] PCP - General Family Practice 04/05/22 Acid Etch Operator Relationship Specialty Start Date End Date Tonio Fajardo DO [address] [place], [place] [id number] PCP - General Family Medicine 04/05/22 Team Status: Active Member Role Status Dates Dr. Tonio Scotty , DO Family Provider Active Dr. Tonio Fajardo , DO Primary Care Provider Active Team Status: Inactive Member Role Status Dates Dr. Tonio Fajardo , DO Primary Care Provider, Referrin g Provider Active Iker Rodriguez SPOT WELDER BODY ASSEMBLY, SPOT WELDER BODY ASSEMBLY-C Attending Provider Active Team Status: Inactive Member [...] DO Primary Care Provider Active Bonny Glynn SPOT WELDER BODY ASSEMBLY, SPOT WELDER BODY ASSEMBLY-C Attending Pro vider, Referring Provider, Other Provider [...] DO Primary Care Provider Active Bonny Glynn SPOT WELDER BODY ASSEMBLY, SPOT WELDER BODY ASSEMBLY-C Attending Provider Active Team Status: Active Member [...] DO Primary Care Provider Active Bonny Glynn SPOT WELDER BODY ASSEMBLY, SPOT WELDER BODY ASSEMBLY-C Attending Provider Active Team Status: Inactive Member Role Status Dates Dr. Tonio Fajardo , DO Primary Care Provider Active Bonny Pintoell SPOT WELDER BODY ASSEMBLY, SPOT WELDER BODY ASSEMBLY-C Attending Provider, Referri ng Provider Active Team Status: Inactive Member Role Status Dates Dr. Tonio Fajardo , DO Primary Care Provider, Referrin g Provider Active Dr. Tyrell Uriarte DO Attending Provider Active Team Status: Active Member Role Status Dates Dr. Tonio Fajardo DO Primary Care Provider Active Bonny Glynn SPOT WELDER BODY ASSEMBLY, SPOT WELDER BODY ASSEMBLY-C Attending Provider, Other P rovider Active Team [...] Provider, Referrin g Provider Active Bonny Glynn SPOT WELDER BODY ASSEMBLY, SPOT WELDER BODY ASSEMBLY-C Attending Provider Active Team Status: Inactive Member [...] Provider, Referrin g Provider Active Lorie Mart SPOT WELDER BODY ASSEMBLY, SPOT WELDER BODY ASSEMBLY-C Attending Provider Active Team Status: Inactive Member Role Status Dates Dr. Tonio Fajardo DO Primary Care Provider, Referrin g Provider Active Leslie DAMIAN, PA Attending Provider Active Team Status: Inactive Member Role Status Dates Dr. Tonio Fajardo DO Primary Care Provider Active Lorie Mart SPOT WELDER BODY ASSEMBLY, SPOT W[employer]DER [employer] ASSEMBLY-C Attending Provider, Referrin g Provider Active Team [...] Dr. Joaquim Suárez DPM Attending Provider Active Acid Etch Operator Relationship Specialty Start Date End Date Tonio Fajardo DO [address] [place] [address] PCP - General Family Medicine 04/05/22 Team [...] 2024 End: October 16, 2024 Lorie Mart [employer] W[employer] ASSEMBLY, SP[employer] W[employer] ASSEMBLY-C Attending Provider Active Start: October 16, 2024 End: October 16, 2024 Lorie Mart SPOT WELDER BODY ASSEMBLY, SPOT WELDER BODY ASSEMBLY-C Referring Provider Active Start: October 16, 2024 End: October 16, 2024 Team Status: Active Member Role Status Dates Dr. Tonio Fajardo DO Primary Care Provider Active Start: October 17, 2024 Lorie Mart SP[employer] WELDER BODY ASSEMBLY, SPOT WELDER BODY ASSEMBLY-C Referring Provider Active Start: October 17, 2024 Lorie Mart SPOT WELDER BODY ASSEMBLY, SPOT WELDER [employer]ODY ASSEMBLY-C Other Provider Active Start: October 17, 2024 [...] 2024 End: October 23, 2024 Lorie Mart SP[employer] WELDER [employer]ODY ASSEMBLY, SPOT WELDER BODY ASSEMBLY-C Attending Provider Active Start: October 23, 2024 [...] 2025 End: March 09, 2025 Iker Rodriguez SPOT WELDER BODY ASSEMBLY, SPOT WELDER BODY ASSEMBLY-C Other Provider Active Start : March 04, [...] Active Start: March 05, 2025 Iker Rodriguez SPOT WELDER BODY ASSEMBLY, SPOT WELDER BODY ASSEMBLY-C Other Provider Active Start : March 05, [...] Status: Active Member Role/Relationship Status Dates Dr. Toino Fajardo DO Primary Care Provider Active Start: [...] Active Start: March 06, 2025 Iker Rodriguez SPOT WELDER BODY ASSEMBLY, SPOT WELDER BODY ASSEMBLY-C Other Provider Active Start : March 06, [...] Active Start: March 06, 2025 Iker Rodriguez SPOT WELDER BODY ASSEMBLY, SPOT WELDER BODY ASSEMBLY-C Other Provider Active Start : March 06, [...] Active Start: March 07, 2025 Iker Rodriguez SPOT WELDER BODY ASSEMBLY, SPOT WELDER BODY ASSEMBLY-C Other Provider Active Start : March 07, [...] Active Start: March 08, 2025 Iker Rodriguez SPOT WELDER BODY ASSEMBLY, SPOT WELDER BODY ASSEMBLY-C Other Provider Active Start : March 08, [...] Active Start: March 08, 2025 Iker Rodriguez SPOT WELDER BODY ASSEMBLY, SPOT WELDER BODY ASSEMBLY-C Other Provider Active Start : March 08, [...] Active Start: March 09, 2025 Iker Rodriguez SPOT WELDER BODY ASSEMBLY, SPOT WELDER BODY ASSEMBLY-C Other Provider Active Start : March 09, [...] Active Start: March 09, 2025 Iker Rodriguez SPOT WELDER BODY ASSEMBLY, SPOT WELDER BODY ASSEMBLY-C Other Provider Active Start : March 09, [...] Start: April 06, 2025 Dr. Ld Hayes , DO Emergency Provider Active Start : April 06, 2025 Dr. Nicola Lindsey , DO Admit Provider Active Start: April 06, [...] 10, 2025 Dr. Nicola Lindsey , DO Other Provider Active Start: April 10, [...] April 19, 2025 Dr. Casper Iniguez , Emergency Provider Active Start: April 19, 2025 [...] April 23, 2025 Dr. Kwaku Narayanan , Admit Provider Active Start: April 20, 2025 [...] Carol Sousa Attending Provider Active Start: S eptembbakari 2024 End: April 28, 2025 Team Status: [...] Start : April 23, 2025 Evelia Bedolla NP-Estevan Other Provider Active St art: April 23, [...] Carol Sousa Attending Provider Active Start: S eptembbakari 2024 End: April 28, 2025 Team Status: [...] section and content) DATE CREATED AUTHOR 08/12/2022 [facility] DATE CREATED AUTHOR AUTHOR'S ORGANIZ ATION 05/01/2025 [facility] DATE CREATED AUTHOR AUTHOR'S ORGANIZ ATION 05/14/2025 [facility] FOR RECORDS PERTAINING TO PATIENTS WHO [...] BE BASED ON THE PRIMARY CLINICAL RECORDS. [employer] provides no warranty or guarantee of the accuracy or completeness of information in this document.
--- NOTE | 2025-05-14 21:22 | HP.PCM_ITS ---
HPI - General General Date of Admission: 05/14/25 Date of Service: 05/14/25 Chief Complaint: Here for rehabilitation, strengthening. HPI Narrative PEDRO HILLMAN, is a 80 Male who presents with followin05/11/2025 [facility] ED TCU resident with shortness of breath. Chest X-ray showed cardiomegaly, bilateral pleural effusions, BNP elevated. BiPAP, Troponin elevated. 05/12/2025 Admit [facility]. BiPAP, aerosols, consider thoracentesis for acute respiratory failure with hypoxia 2/2 bilateral pleural effusions/acute HFpEF. 05/12/2025 Ultrasound guided thoracentesis removed 1090mL sheldon fluid. Post thoracentesis pneumothorax < 10%, no chest tube needed. Lasix 40mg IV bid for acute HFpEF/bilateral pleural effusions. 05/13/2025 No acute events overnight. Oxygen 4 liters NC, baseline. Elevated troponin 2/2 demand ischemia. 05/13/2025 Echo Mild concentric LVH. LVEF 55%. RVSP 50mm HG. 05/14/2025 Admit to TCU with debility, here for rehabilitation, strengthening, prior to discharge home. [facility] Medical History (Updated 05/14/25 @ 21:[address] Valdez Olivo MD) Orthostatic hypotension Syncope Presence of cardiac pacemaker Peripheral arterial disease Other persistent atrial fibrillation New onset atrial flutter COVID Wears hearing aid in both ears Former smoker Coronary artery disease Peripheral vascular occlusive disease BPH (benign prostatic hyperplasia) Chronic kidney disease, stage 3 Atherosclerosis of coronary artery of [place] heart without angina pectoris Hyperlipidemia Lower extremity edema Venous insufficiency Malnutrition Delayed wound healing Osteomyelitis of ankle, left, acute Ulcer of left lower extremity with fat layer exposed Type 2 diabetes mellitus with diabetic polyneuropathy Anemia GERD (gastroesophageal reflux disease) Hypertension Home Medications ?Medication ?Instructions ?Recorded ?Last Taken ?Type multivitamin (Daily Multi-Vitamin 1 tab PO DAILY suppl ement 06/28/20 05/03/25 History tablet) pravastatin 20 mg tablet 20 mg PO DAILY hyperlipidemi a 01/17/22 05/03/25 History apixaban 5 mg tablet (Eliquis) 2.5 mg (1/2 x 5 mg) PO BID blood 03/09/25 05/01/25 Rx thinner 30 days #30 tabs tamsulosin 0.4 mg capsule 0.4 mg PO DAILY@1730 prostat e 30 03/09/25 05/03/25 Rx days #30 caps metoprolol succinate 25 mg 12.5 mg (1/2 x 25 mg) PO BI D blood 04/03/25 05/04/25 Rx tablet,extended release 24 hr thinner #90 tabs clopidogrel 75 mg tablet 75 mg PO DAILY anti platelet 04/05/25 05/03/25 History OXYGEN - Supplemental ([facility] 04/09/25 Unknown History INFORMATIONAL USE ONLY) ipratropium 0.5 mg-albuterol 3 mg 3 ml inhalation Q8H SOB 04/17/25 Unknown History (2.5 mg base)/3 mL nebulization soln acetaminophen 325 mg tablet 650 mg (2 x 325 mg) PO Q6H PRN PRN 04/23/25 05/03/25 Rx Pain 1-10 Or Fever>100.7 #0 tabs albuterol sulfate 2.5 mg/3 mL 2.5 mg (3 mL) inhalation Q4H PRN 04/23/25 05/03/25 Rx (0.083 %) solution for nebulization shortness of breat h or wheezing #0 mL fludrocortisone 0.1 mg tablet 0.1 mg PO BID hypotensio n #0 tabs 04/23/25 05/03/25 Rx insulin lispro 100 unit/mL See Protocol subcut ACHS di abetes 04/23/25 Unknown Rx subcutaneous pen (Humalog KwikPen #0 mL (U-100) Insulin) midodrine 5 mg tablet 10 mg (2 x 5 mg) PO TIDCM Unknown Rx hypotension #0 tabs nutrition tx glu 120 ml PO TIDCM supplement # 0 mL 04/23/25 05/03/25 Rx intol,lac-free,soy-fiber 0.06 gram-1.2 kcal/mL liquid (Glucerna 1.2 Gonzalo) insulin glargine-yfgn 100 unit/mL 20 unit subcut QHS d iabetes 05/04/25 05/03/25 History (3 mL) subcutaneous pen furosemide 40 mg tablet 40 mg PO DAILY fluid retenti on #0 05/14/25 Unknown Rx tabs sucralfate 1 gram tablet 1 g PO 1HR_ACHS stomach #0 t abs 05/14/25 Unknown Rx Allergy/AdvReac Type Severity Reaction Status Date / Time ibuprofen Allergy Severe Facial Verified 05/11/25 20:31 swelling (angioedema) Family History Brother Diabetes Father , Age 72 stomach ulcers No problems noted. Mother , Age 71 pancreatitis No problems noted. Sister , hepatitis C No problems noted. Surgical History History of permanent cardiac pacemaker placement H/O aorto-femoral bypass (~2009) History of transurethral resection of prostate Presence of aortocoronary bypass graft (~03/2013) Social History household members: none Smoking Status: Former smoker Tobacco: How many years used: 30 how long ago did patient quit smokin years ROS Constitutional Constitutional: Reports weakness; Denies chills, fever(s) or weight gain ENT HEENT: Denies headache(s), nasal congestion or nasal discharge Cardiovascular Cardiovascular: Denies chest pain or palpitations Respiratory/Chest Respiratory/Chest: Denies cough, excessive phlegm production or shortness of breath with exertion Gastrointestinal Gastrointestinal: Denies abdominal pain, nausea or vomiting Genitourinary Genitourinary: Denies dysuria Musculoskeletal Musculoskeletal: Denies joint pain or joint swelling Integumentary Integumentary: Denies rash or wounds Neurologic Neurologic: Denies focal weakness, numbness or tingling Psychiatric Psychiatric: Denies anxiety, auditory hallucinations, depression, homicidal ideation or suicidal ideation Vital Signs Vital Signs Vital Signs: 05/14/25 17:12 05/14/25 18:24 Temperature 97.6 F L Temperature Source Temporal Pulse Rate 72 52 L Pulse Rhythm Regular Pulse Strength Normal (2+) Respiratory Rate 20 H 20 H Respiratory Effort Short of Breath Labored Accessory Muscle Use Respiratory Depth Deep Respiratory Pattern Normal Blood Pressure 140/77 H Blood Pressure Mean 98 Blood Pressure Source Monitor Blood Pressure Position Sitting Blood Pressure Location Left Arm Pulse Ox 99 99 Oxygen Delivery Method Nasal Cannula Nasal Cannula Oxygen Flow Rate (L/min) 2 4 Physical Exam Const alert General Appearance: cooperative HEENT normocephalic Eyes PERRL and EOMs intact bilaterally Neck supple, no JVD and no carotid bruits Resp normal respiratory effort, normal air movement and clear to auscultation bilaterally Auscultation: diminished lung sounds bilateral lower Cardio regular rate and regular rhythm GI normal to inspection, nondistended, normoactive bowel sounds, non-tender and non-distended Extremity normal capillary refill General Extremity: Negative for edema Skin no rashes or lesions noted General Skin Exam: no breakdown Psych affect normal Appearance: appropriate Results Lab / Micro Data Labs: Laboratory Results - last 24 hr 05/14/25 17:48: POC Glucose 89 Assessment & Plan Assessment/Plan (1) Syncope: (2) Orthostatic hypotension: (3) Tachy-brittany syndrome: (4) Debility: (5) Acute respiratory failure with hypoxia: (6) Recurrent right pleural effusion: (7) Acute heart failure with preserved ejection fraction (HFpEF): (8) COPD (chronic obstructive pulmonary disease): QUALIFIERS: COPD type: emphysema Emphysema type: centrilobular Qualified Code(s): J43.2 - Centrilobular emphysema (9) Atrial fibrillation: (10) PAOD (peripheral arterial occlusive disease): (11) Type 2 diabetes mellitus with hyperglycemia: (12) Hyperlipidemia: QUALIFIERS: Hyperlipidemia type: unspecified Qualified Code(s): E78.5 - Hyperlipidemia, unspecified (13) BPH (benign prostatic hyperplasia): PLAN: Plan 80 year old male with below past medical history hospitalized for acute respiratory failure with hypoxia 2/2 pleural effusion, acute HFpEF, underwent thoracentesis, complicated by pneumothorax, admitted to TCU with debility, here for rehabilitation, strengthening, prior to discharge home. * Debility - PT/OT. * Pain - Tylenol 650mg q6 prn. * Bowel - senna/colace 1 tablet bid. * Adult immunization - Administer pneumonia vaccine, covid vaccine, flu vaccine as appropriate. * DVT prophylaxis - Eliquis. * COPD - Duoneb 3mL q8, Albuterol 2.5mg q4. * Atrial fibrillation - Metoprolol succinate 12.5mg bid, Eliquis 2.5mg bid. * PAOD - Plavix 75mg daily. * Orthostatic hypotension - Florinef 0.1mg bid, Midodrine 10mg tid. * Chronic HFpEF - Metoprolol succinate 12.5mg bid, Furosemide 40mg daily. * Nutrition - Glucerna Shake 120mL tid, MVI 1 tablet daily. * Diabetes Mellitus II - Glargine 20 untis qhs. * Skin irritaton - Calmoseptine topical bid, Petrolatum qhs. * Tinea Corporis - Nystatin powder topical bid. * Hyperlipidemia - Pravastatin 20mg qhs. * BPH - Tamsulosin 0.4mg daily.
[2025-05-14 22:25] VITALS: BP 125/58; PULSE 76; RESP 17; O2SAT 100
[2025-05-14 22:28] VITALS: BP 125/58; PULSE 76
[2025-05-14] MEDS: Metoprolol(XL)Succ 25 MG Tablet 12.5 MG PO (22:28)
[2025-05-14] MEDS: Senna/Docusate Sodium 1 Tablet PO (22:28)
[2025-05-14] MEDS: Insulin Glargine-YFGN 100 UNIT/ML Pen 20 UNIT SC (22:29)
[2025-05-14] MEDS: Petrolatum 33% Tube 1 APPLIC TOPICAL (22:30)
[2025-05-14] MEDS: APIXABAN 2.5 MG TABLET (WCH) PO (22:31)
[2025-05-15] VITALS (8 sets, daily range): BP systolic 127–139; BP diastolic 53–63; PULSE 67–76; RESP 16–20; TEMP 36.3–36.4; O2SAT 95–100
[2025-05-15] MEDS: 0.9% Saline Lock 10 ML Syringe IV ×3 (00:10→22:21)
[2025-05-15 07:24] LABS: Hematocrit 28.5 % (40-54); Hemoglobin 8.7 g/dL (13.0-16.5); Immature Granulocytes Count 0.040 X10^3/uL (0.0-0.0); Mean Corp Hgb Conc 30.5 g/dL (32-36); Mean Corpuscular Volume 91.1 fL (80-94); Mean Platelet Vol. 10.7 fl (6.2-12.0); NRBC Flagged by Analyzer 0 % (0-5); Platelet Count 179 K/mm3 (150-450); RBC Distribution Width CV 16.1 % (11.6-14.6); RBC Distribution Width SD 54.4 fl (35.1-43.9); Red Blood Count 3.13 M/mm3 (4.6-6.2); White Blood Count 7.9 K/mm3 (4.4-11.0)
[2025-05-15 08:12] LABS: Anion Gap 10 (5-15); BUN 32 mg/dL (4-19); BUN/Creat Ratio 17.7 RATIO (10-20); Calcium,Total 9.1 mg/dL (7.6-11.0); Carbon Dioxide 36.3 mmol/L (21.0-32.0); Chloride 93 mmol/L (98-108); Glucose 103 mg/dL (70-99); Potassium 3.4 mmol/L (3.3-5.1)
[2025-05-15] MEDS: Glucerna Shake 120 ML LIQUID PO ×3 (08:54→16:46)
[2025-05-15] MEDS: Metoprolol(XL)Succ 25 MG Tablet 12.5 MG PO ×2 (08:55→22:21)
[2025-05-15] MEDS: APIXABAN 2.5 MG TABLET (WCH) PO ×2 (08:56→22:22)
[2025-05-15] MEDS: Senna/Docusate Sodium 1 Tablet PO ×2 (08:58→22:22)
--- NOTE | 2025-05-15 10:22 | PHA.CONS_ITS ---
Documented by User: Mala Diamond 05/15/25 10:59 TCU RX Drug Regimen Review Subjective/Objective Subjective/Objective Subjective: TCU Admission. 80 YOM TCU resident presented to ER with SOB. Hospitalized for acute respiratory failure with hypoxia 2/2 pleural effusion, ac althea HFpEF, underwent thoracentesis, complicated by pneumothorax. Admitted to TCU with debility for strengthening and rehabilitation. Objective: Allergies ibuprofen Allergy (Severe, Verified 05/11/25 20:31) Facial swelling (angioedema) Current Medications Generic Name Dose Route Start Last Admin Trade Name Freq PRN Reason Stop Dose Admin Acetaminophen 650 mg 05/14/25 17:30 05/14/25 23:13 Acetaminophen 325 Mg Tablet PO 650 mg Q6H PRN PRN Administration Pain 1-10 Or Fever>100.7 Albuterol Sulfate 2.5 mg 05/14/25 17:30 Albuterol 2.5 Mg/3 Ml Vial.Neb. INHALATION Q4H PRN shortness of breath or wheezing Albuterol/Ipratropium 3 ml 05/14/25 18:00 05/15/25 07:25 Ipratropium/Albuterol Sulfate 3 Ml Ampul.Neb INHALATION 3 ml Q8H.RT FROY Administration Apixaban 2.5 mg 05/14/25 22:00 05/15/25 08:56 Apixaban 2.5 Mg Tablet ([facility]) PO 2.5 mg BID FROY Administration Calamine/Phenol 1 applic 05/14/25 22:00 05/15/25 08:56 Menthol/Lanolin/Calamine/Znox 113 Gm Tube TOPICAL 1 applic BID FROY Administration Protocol Clopidogrel Bisulfate 75 mg 05/15/25 10:00 05/15/25 08:55 Clopidogrel Bisulfate 75 Mg Tablet PO 75 mg DAILY FROY Administration Fludrocortisone Acetate 0.1 mg 05/14/25 22:00 05/15/25 08:56 Fludrocortisone Acetate 0.1 Mg Tablet PO 0.1 mg BID FROY Administration Furosemide 40 mg 05/15/25 10:00 05/15/25 08:56 Furosemide 40 Mg Tablet PO 40 mg DAILY FROY Administration Protocol Insulin Glargine 20 unit 05/14/25 22:00 05/14/25 22:29 Insulin Glargine-Yfgn 100 Unit/Ml Pen SC 20 unit QHS FROY Administration Melatonin 3 mg 05/15/25 22:00 Melatonin 3 Mg Tablet PO QHS [facility] Metoprolol Succinate 12.5 mg 05/14/25 22:00 05/15/25 08:55 Metoprolol(Xl)Succ 25 Mg Tablet PO 12.5 mg BID [facility] Administration Protocol Midodrine 10 mg 05/14/25 17:45 05/15/25 08:55 Midodrine Hcl 5 Mg Tablet PO 10 mg TIDCM FROY Administration Multi-Ingredient Cream 1 applic 05/14/25 22:00 05/14/25 22:30 Petrolatum 33% Tube TOPICAL 1 applic QHS [facility] Administration Protocol Multivitamins 1 tablet 05/15/25 08:00 05/15/25 08:56 Multivitamins,Therapeutic Tablet PO 1 tablet DAILYCM [facility] Administration Nutritional Formula (Lactose Free) 120 ml 05/14/25 17:45 05/15/25 08:54 Glucerna Shake 120 Ml Liquid PO 120 ml TIDCM FROY Administration Nystatin 1 applic 05/14/25 22:00 05/15/25 08:57 Nystatin Powder 15gm Bottle TOPICAL 1 applic BID [facility] Administration Protocol Pravastatin Sodium 20 mg 05/15/25 10:00 05/15/25 08:55 Pravastatin 20 Mg Tablet PO 20 mg DAILY FROY Administration Senna/Docusate Sodium 1 tablet 05/14/25 22:00 05/15/25 08:58 Senna/Docusate Sodium 1 Tablet PO 1 tablet BID FROY Administration Sodium Chloride 10 - 40 ml 05/14/25 17:34 05/15/25 00:10 0.9% Saline Lock 10 Ml Syringe IV 10 ml UD PRN Administration SALINE FLUSH Sucralfate 1 gm 05/14/25 22:00 05/15/25 06:10 Sucralfate 1 Gm Tablet PO 1 gm 1HR_ACHS FROY Administration Tamsulosin HCl 0.4 mg 05/14/25 17:30 05/14/25 18:18 Tamsulosin Hcl 0.4 Mg Capsule PO 0.4 mg DAILY@1730 FROY Administration Tuberculin PPD 0.1 ml 05/22/25 10:00 Tuberculin,Purif.Prot.Deriv. 50 Tu/Ml Vial ID 05/22/25 10:01 X1 ONE Problem List Orthostatic hypotension (Acute) PAOD (peripheral arterial occlusive disease) (Acute) Recurrent right pleural effusion (Acute) BPH (benign prostatic hyperplasia) (Acute) Type 2 diabetes mellitus with hyperglycemia (Acute) Atrial fibrillation (Acute) Debility (Acute) COPD (chronic obstructive pulmonary disease) (Chronic) Hyperlipidemia (Chronic) Vital Signs Temp Pulse Resp BP Pulse Ox O2 Del Method O2 Flow Rate 97.6 F L 70 18 127/53 H 95 Room Air 4 05/15/25 08:51 05/15/25 08:55 05/15/25 08:51 05/15/25 08:51 05/15/25 08:51 05/15/25 08:51 05/15/25 09:15 Oxygen Flow Rate (L/min) 4 Oxygen Delivery Method Room Air Sodium 139 mmol/L (133-145) 05/15/25 07:08 Potassium 3.4 mmol/L (3.3-5.1) 05/15/25 07:08 Chloride 93 mmol/L (98-108) L 05/15/25 07:08 Carbon Dioxide 36.3 mmol/L (21.0-32.0) H 05/15/25 07:08 Anion Gap 10 (5-15) 05/15/25 07:08 BUN 32 mg/dL (4-19) H 05/15/25 07:08 Creatinine 1.78 mg/dL (0.70-1.20) H 05/15/25 07:08 Est GFR (MDRD) Non-Af 38 (>60) L 05/15/25 07:08 BUN/Creatinine Ratio 17.7 RATIO (10-20) 05/15/25 07:08 Glucose 103 mg/dL (70-99) H 05/15/25 07:08 Assessment/Plan: 1. Pain: acetaminophen 650mg PO Q6H PRN pain 1-10. Resident has used one dose for generalized pain (score of 1). Please continue to monitor for, LFTs (last 05/13/25 WNL), PRN usage and increased pain. 2. Bowel: senna/docusate 1T PO BID. Please continue to monitor for constipation, PRN usage. Last document bowel movement:05/14/25. 3. Atrial fibrillation/PAOD/chronic HFpEF: metoprolol succinate 12.5mg PO BID, apixaban 2.5mg PO BID, furosemide 40mg PO daily and clopidogrel 75mg PO daily. Please continue to monitor HR (range 52-76), BP (range 125/58-140/77), renal function, swelling, potassium (last 3.4mmol/L), hemoglobin (last 8.7g/dL), S/S of bleeding/stroke/DVT. Apixaban dose has been reduced based on SCR >1.5mg/dL and age >80. 4. Orthostatic hypotension: fludrocortisone 0.1mg PO BID and midodrine 10mg PO TID. Please continue to monitor BP. 5. Diabetes mellitus II: insulin glargine 20units SC QHS. Please continue to monitor hemoglobin A1c (last 6.3% 03/04/25), glucose (last 112mg/dL), and S/S of hypoglycemia. 6. Hyperlipidemia: pravastatin 20mg PO QHS. Please continue to monitor LFT (last 04/19/25), lipid panel (last 03/05/25) and for muscle pain. 7. BPH: tamsulosin 0.4mg PO daily. Please continue to monitor for S/S of BPH and BP. 8. COPD: Duoneb 3mL nebulized solution Q8 and albuterol 2.5mg nebulized solution Q4H PRN SOB/wheezing. No PRN doses have been given. Please continue to monitor for PRN usage, SOB, HR. 9. Nutrition: multivitamin 1T PO daily. Please continue to monitor. 10. Skin irritation/Tinea corporis: Calmoseptine topical bid, petrolatum topical QHS and Nystatin powder topical bid. Please continue to monitor. 11. Insomnia: melatonin 3mg PO QHS. Please continue to monitor for excessive daytime drowsiness and insomnia. 12. Gastric ulcer: sucralfate 1gm PO 1HR_ACHS. Resident was previously on pantoprazole 40mg PO BID on TCU. Please consider resuming if clinically appropriate. Thanks. Assessment/Plan for indications treated with psychotropic medications: Resident is not prescribed scheduled or prn psychotropic medications at the time of this drug regimen review. Medical chart and medication regimen reviewed. The following medication irregularities or issues were identified: 1. Gastric ulcer: sucralfate 1gm PO 1HR_ACHS. Resident was previously on pantoprazole 40mg PO BID on TCU. Please consider resuming if clinically appropriate. Thanks. Date Date of Note: 05/15/25 Documented by User: Dr. Valdez Olivo MD 05/15/25 11:01 TCU RX Drug Regimen Review Provider Comments Provider responsibility Provider Comments to Recommendations by Pharmacy Agree
--- NOTE | 2025-05-15 10:38 | NURSING ---
Marketing Writer Note; Activity Asset: Teri Nichols has returned to TCU and remains independent in is choice of daily activities. He still uses his tablet and has family visits. He prefers to rest at this time over group activities. Staff will remind him of weekly activities and respect his right to say no.
--- NOTE | 2025-05-15 10:42 | MDS.RN ---
MDS entry tracker complete, pain assessment completed.
[2025-05-15] MEDS: FLU VACCINE HIGH DOSE 25-26(65YR UP) 180 MCG/0.5 ML SYRINGE IM (16:48)
[2025-05-15] MEDS: Albuterol 2.5 MG/3 ML VIAL.NEB. INHALATION (20:35)
[2025-05-15] MEDS: Insulin Glargine-YFGN 100 UNIT/ML Pen 20 UNIT SC (22:21)
[2025-05-15] MEDS: MELATONIN 3 MG TABLET PO (23:50)
[2025-05-15] MEDS: Petrolatum 33% Tube 1 APPLIC TOPICAL (23:52)
[2025-05-16] VITALS (10 sets, daily range): BP systolic 135–146; BP diastolic 44–66; PULSE 61–84; RESP 16–18; TEMP 35.9; O2SAT 96–99
[2025-05-16] MEDS: Glucerna Shake 120 ML LIQUID PO (07:57)
[2025-05-16] MEDS: APIXABAN 2.5 MG TABLET (WCH) PO ×2 (07:58→22:52)
[2025-05-16] MEDS: Metoprolol(XL)Succ 25 MG Tablet 12.5 MG PO ×2 (08:00→22:56)
[2025-05-16] MEDS: 0.9% Saline Lock 10 ML Syringe IV ×2 (18:13→22:51)
[2025-05-16] MEDS: Petrolatum 33% Tube 1 APPLIC TOPICAL (22:53)
[2025-05-16] MEDS: Insulin Glargine-YFGN 100 UNIT/ML Pen 20 UNIT SC (22:54)
[2025-05-16] MEDS: MELATONIN 3 MG TABLET PO (22:58)
[2025-05-17] VITALS (9 sets, daily range): BP systolic 114–141; BP diastolic 44–56; PULSE 58–80; RESP 16–18; TEMP 36.1; O2SAT 97–100
[2025-05-17] MEDS: APIXABAN 2.5 MG TABLET (WCH) PO ×2 (08:34→22:45)
[2025-05-17] MEDS: Metoprolol(XL)Succ 25 MG Tablet 12.5 MG PO ×2 (08:35→22:47)
[2025-05-17] MEDS: 0.9% Saline Lock 10 ML Syringe IV ×2 (16:51→22:50)
[2025-05-17] MEDS: Petrolatum 33% Tube 1 APPLIC TOPICAL (22:45)
[2025-05-17] MEDS: MELATONIN 3 MG TABLET PO (22:46)
[2025-05-17] MEDS: Insulin Glargine-YFGN 100 UNIT/ML Pen 20 UNIT SC (22:48)
[2025-05-18] VITALS (8 sets, daily range): BP systolic 129–149; BP diastolic 51–56; PULSE 64–78; RESP 17–19; TEMP 36.3; O2SAT 95–100
[2025-05-18] MEDS: Metoprolol(XL)Succ 25 MG Tablet 12.5 MG PO ×2 (07:55→22:30)
[2025-05-18] MEDS: APIXABAN 2.5 MG TABLET (WCH) PO ×2 (07:57→22:29)
[2025-05-18] MEDS: 0.9% Saline Lock 10 ML Syringe IV ×2 (14:09→22:28)
[2025-05-18] MEDS: Insulin Glargine-YFGN 100 UNIT/ML Pen 20 UNIT SC (22:28)
[2025-05-18] MEDS: Petrolatum 33% Tube 1 APPLIC TOPICAL (22:30)
[2025-05-18] MEDS: MELATONIN 3 MG TABLET PO (23:46)
[2025-05-19] VITALS (9 sets, daily range): BP systolic 124–151; BP diastolic 59–92; PULSE 68–99; RESP 18–20; TEMP 36.1–36.6; O2SAT 93–100; BMI 25.0
[2025-05-19] MEDS: APIXABAN 2.5 MG TABLET (WCH) PO (08:40)
[2025-05-19] MEDS: Metoprolol(XL)Succ 25 MG Tablet 12.5 MG PO ×2 (08:40→22:30)
[2025-05-19] MEDS: Glucerna Shake 120 ML LIQUID PO ×3 (08:42→18:10)
--- NOTE | 2025-05-19 11:19 | RAD_ITS ---
PROCEDURE: CHEST PA AND LATERAL 05/19/2025 REASON FOR EXAM: INCREASE SOB TECHNIQUE: Procedure Code: RADCXR Modality: DX Procedure: CHEST PA AND LATERAL COMPARISON: 05/14/2025 FINDINGS: Hardware: None Heart: Mild cardiomegaly. Mediastinum: Mild prominence of the pulmonary vasculature is. Lungs: Diffuse bilateral ground-glass opacifications with more dense opacity seen at the lung bases. Moderate right-sided and small left-sided pleural effusions again demonstrated. Bones: Grossly unremarkable. Dual-chamber left-sided pacemaker again demonstrated. RAD/Chest PA and Lateral IMPRESSION: Moderate congestive changes with bibasilar atelectasis versus consolidation and moderate right-sided small left-sided pleural effusions again demonstrated with no significant interval change Reading Location: [place] [address]
--- NOTE | 2025-05-19 13:01 | NURSING ---
dr chávez aware of cxr results, new order thoracentesis d/t increase SOB w/little activity. Neelam, daughter in law notified of pt going down to ultrasound today at 1330
--- NOTE | 2025-05-19 13:40 | NURSING ---
pt off unit to ultrasound at this time via WC
--- NOTE | 2025-05-19 15:30 | NURSING ---
pt returned to floor, pt had 570cc removed from rt lung today.
[2025-05-19] MEDS: 0.9% Saline Lock 10 ML Syringe IV ×2 (16:02→22:30)
[2025-05-19] MEDS: Petrolatum 33% Tube 1 APPLIC TOPICAL (22:28)
[2025-05-19] MEDS: Insulin Glargine-YFGN 100 UNIT/ML Pen 20 UNIT SC (22:29)
[2025-05-19] MEDS: MELATONIN 3 MG TABLET PO (22:30)
[2025-05-20] VITALS (9 sets, daily range): BP systolic 123–138; BP diastolic 49–65; PULSE 81–112; RESP 17–20; TEMP 36.2; O2SAT 97–100
--- NOTE | 2025-05-20 06:44 | NURSING ---
Written communication left for Dr. Olivo regarding no BM x3 days. Pt has PRN order for mag citrate, but also has an order for 1750 mL fluid restriction.
[2025-05-20] MEDS: 0.9% Saline Lock 10 ML Syringe IV ×2 (07:33→21:50)
[2025-05-20] MEDS: Glucerna Shake 120 ML LIQUID PO ×3 (07:33→17:44)
[2025-05-20] MEDS: APIXABAN 2.5 MG TABLET (WCH) PO ×2 (07:35→21:48)
[2025-05-20] MEDS: Metoprolol(XL)Succ 25 MG Tablet 12.5 MG PO ×2 (07:36→21:49)
[2025-05-20] MEDS: Senna/Docusate Sodium 1 Tablet PO ×2 (07:39→21:49)
--- NOTE | 2025-05-20 09:19 | NURSING ---
0700: R' LOWERED TO FLOOR BY COAL MINE INSPECTOR Juan Manuel FREY. R' WALKING BACK FROM RESTROOM WHEN HE STATES MY KNEES GOT WEAK AND I COULDN'T STAND ANYMORE. COAL MINE INSPECTOR WAS ABLE TO SAFELY LOWER R' TO FLOOR. VS OBTAINED: 97.1, 98 HR, 97% 4L O2, 123/49, 20R. BLOOD SUGAR 76. R' DID NOT SUSTAIN ANY INJURIES, NOR DID HE HIT HIS HEAD.THIS NURSE ALONG WITH Estefanía CRANE RN, AND Tavon CONWAY RN ASSISTED R' BACK TO CHAIR. R' DENIES ANY PAIN. REMAINED A+OX3. DR. ORONA ON UNIT AT TIME AND SAW/SPOKE WITH R'. NO NEW ORDERS. R' SON MAY WEST NOTIFIED AT 0720. ALSO, AGRICULTURAL RESEARCH TECHNOLOGIST, ARRANGING FUNERAL DIRECTOR, AND THERAPIST SPEECH NOTIFIED. R' TO BE X2 ASSIST AT THIS TIME. STAFF AWARE. WILL MONITOR.
--- NOTE | 2025-05-20 10:43 | NURSING ---
INFORMED R' THAT DR ORONA ORDERED SSE. R' STATED HE HAD LG BM YESTERDAY AND DOES NOT NEED THE ENEMA.
--- NOTE | 2025-05-20 10:44 | CASEMGMT ---
Addendum entered by Criselda Townsend 05/20/25 11:17: SW also provided transportation resources, per DIL request for assistance with appts at DC. Original Note: Social Work IDT met with patient, son and DIL for care plan meeting. Discussed patient's progress in PT/OT/SN/RDN. Educated to Medicare benefit - readmitted on day . Therapy noted their services may not be benefiting the pt - making him more fatigued. SW inquired about treatment goals and wishes for pt. Pt voiced he wants to continue with treatment, therapy and fighting toward recovery. SW confirmed IDT will continue pursuing those goals with pt, but if pt changes his mind, to notify this worker for assistance. SW also noted that if pt does not improve with therapy and it is contraindicated to continue, IDT will discuss DC. Pt voiced understanding. SW explained d/t safety concerns and being medically complex, IDT not recommending pt return home alone. Family is contacting [facility] to see what assistance they can provide, DIRECTOR DECISION SUPPORT or AL. SW offered to also contact. SW educated to palliative care services. Pt and family agreed. SW provided list of options for palliative care agencies. Requested pt/family to review and select preference, then notify this worker to place referral prior to DC. Pt/family appreciative. SW will continue to follow for DC planning. Criselda Townsend JUVENILE COUNSELOR STEEL PLATE CAULKER
--- NOTE | 2025-05-20 11:45 | NURSING ---
R' AND R' SON NOTIFIED ABOUT COVID CASE ON UNIT.
[2025-05-20] MEDS: Petrolatum 33% Tube 1 APPLIC TOPICAL (21:46)
[2025-05-20] MEDS: MELATONIN 3 MG TABLET PO (21:49)
[2025-05-20] MEDS: Insulin Glargine-YFGN 100 UNIT/ML Pen 20 UNIT SC (21:49)
[2025-05-21] VITALS (7 sets, daily range): BP systolic 128–131; BP diastolic 63; PULSE 77–116; RESP 20–24; TEMP 36.2; O2SAT 94–100; BMI 24.9
[2025-05-21] MEDS: Senna/Docusate Sodium 1 Tablet PO ×2 (07:55→22:37)
[2025-05-21] MEDS: Glucerna Shake 120 ML LIQUID PO ×3 (07:56→17:35)
[2025-05-21] MEDS: APIXABAN 2.5 MG TABLET (WCH) PO ×2 (07:56→22:37)
[2025-05-21] MEDS: Metoprolol(XL)Succ 25 MG Tablet 12.5 MG PO ×2 (07:58→22:42)
--- NOTE | 2025-05-21 09:20 | NURSING ---
dr chávez ordered PRN ativan for restlessness/anxiety
--- NOTE | 2025-05-21 10:28 | CASEMGMT ---
Social Work SW completed BIMS () and PHQ-2 () for MDS assessment upon admission. Criselda Townsend OPERATIONS SUPERVISOR DIE CASTER
--- NOTE | 2025-05-21 10:37 | CASEMGMT ---
Social Work SW left VM at [facility] with primary care SW to inquire about pt getting service connected for assistance with DC needs. Criselda Townsend ONCOLOGY SOCIAL WORKER APPLIANCE TECHNICIAN
[2025-05-21] MEDS: 0.9% Saline Lock 10 ML Syringe IV ×2 (11:38→22:39)
--- NOTE | 2025-05-21 16:19 | CASEMGMT ---
Social Work VIJAY spoke with VIJAY Olsen at [facility]. She informed this worker that pt would be 70% service connected, once pt sees a [place] primary care provider, which the son has a virtual appt scheduled for 05/27 at 1000. SW questioned having a pt see a PCP while in SNF, and [place] SW reminded this worker that this service is not being billed to Medicare, it is a [facility] service, thus should be kosher. After pt has that visit, a consult will be placed to the [place] SW to begin approving either LTC in [place] contracted SNF or PERIPHERAL VASCULAR TECH. [place] SW noted that if pt is more appropriate for SNF and needs 24/ care, the [place] PERIPHERAL VASCULAR TECH cannot provide that and can deny that service. PERIPHERAL VASCULAR TECH only have limited hours per week. SW appreciative of information. - SW phoned son to update on above. Son appreciative and will follow up after the virtual visit. Criselda Townsend SYSTEMS INTEGRATION ENGINEER JELLY MAKER
[2025-05-21] MEDS: Insulin Glargine-YFGN 100 UNIT/ML Pen 20 UNIT SC (22:37)
[2025-05-21] MEDS: MELATONIN 3 MG TABLET PO (22:37)
[2025-05-21] MEDS: Petrolatum 33% Tube 1 APPLIC TOPICAL (22:43)
[2025-05-22] VITALS (8 sets, daily range): BP systolic 135–148; BP diastolic 51–60; PULSE 62–79; RESP 20–24; TEMP 36.6; O2SAT 98–100; BMI 25.0
[2025-05-22 08:36] LABS: Hematocrit 30.7 % (40-54); Hemoglobin 8.8 g/dL (13.0-16.5); Immature Granulocytes Count 0.090 X10^3/uL (0.0-0.0); Mean Corp Hgb Conc 28.7 g/dL (32-36); Mean Corpuscular Volume 93.0 fL (80-94); Mean Platelet Vol. 10.5 fl (6.2-12.0); NRBC Flagged by Analyzer 0 % (0-5); Platelet Count 235 K/mm3 (150-450); RBC Distribution Width CV 16.0 % (11.6-14.6); RBC Distribution Width SD 54.2 fl (35.1-43.9); Red Blood Count 3.30 M/mm3 (4.6-6.2); White Blood Count 8.7 K/mm3 (4.4-11.0)
[2025-05-22] MEDS: APIXABAN 2.5 MG TABLET (WCH) PO ×2 (08:44→22:33)
[2025-05-22] MEDS: Glucerna Shake 120 ML LIQUID PO ×2 (08:44→13:30)
[2025-05-22] MEDS: Senna/Docusate Sodium 1 Tablet PO (08:45)
[2025-05-22] MEDS: Metoprolol(XL)Succ 25 MG Tablet 12.5 MG PO ×2 (08:45→22:32)
--- NOTE | 2025-05-22 09:14 | NURSING ---
Activityb Coordinator Note; MDS for 05/21/2025 Complete
[2025-05-22 09:31] LABS: Anion Gap 12 (5-15); BUN 22 mg/dL (4-19); BUN/Creat Ratio 14.1 RATIO (10-20); Calcium,Total 9.3 mg/dL (7.6-11.0); Carbon Dioxide 38.9 mmol/L (21.0-32.0); Chloride 93 mmol/L (98-108); Estimated Creatinine Clearance 34.30 ml/min (50-250); Glucose 108 mg/dL (70-99); Potassium 3.1 mmol/L (3.3-5.1)
[2025-05-22] MEDS: Potassium Chloride Oral Tablet 20 MEQ 40 MEQ PO (10:12)
--- NOTE | 2025-05-22 10:15 | NURSING ---
dr mclean aware of low K+, new order 40meq kdur given
--- NOTE | 2025-05-22 14:55 | NURSING ---
Addendum entered by Charito Castillo 05/22/25 17:10: dr mclean spoke with pt and adjusted medications, cxr & ortho's tomorrow AM, strict I&O, dc'd ativan & started on buspar instead. pt feeling good right now, denies sob. resting in chair, oxygen at 4 liters Original Note: AT 1330 pt c/o SOB after therapy, oxygen turned up to 5 liters but sat 99%. pt lungs clear t/o. pt with use of abdominal accessory muscles. PRN Ativan given with relief. dr mclean aware.
--- NOTE | 2025-05-22 15:35 | PN_ITS ---
Subjective Subjective Asked by nursing to see for c/o SOB. He has a hx of Lung cancer diagnosed 2 years ago and treated with radiation only. He has mets to mediastinum and to L adrenal gland. 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 He sees Dr. Uriarte for COPD and the last time he was seen was in October. I can not find PFT's on the chart. He has been getting repeated thoracenteses to drain pleural effusions. There have been no malignant cells identified. Recent cultures have been negative. He is on FLorinef 0.1 mg BID for orthostasis which causes salt and fluid retention. He is also on Midodrine for orthostasis. He has a L adrenal mets.....he has never had a cortisol done in this hospital. EF is normal. He has pulmonary HTN and 2+ TR. He has AF and is on Apixaban, renally dosed. He takes Metoprolol for rate control. There are no urine OP's recorded for the past few days. He has been in and out of PCU and into TCU over the past month. He got a dose of Ativan today and it really helped his SOB. His last Thoracentesis was on 05/19 and he had 570 removed. No one has ever approached him about palliative care and he is a full code. I reviewed the lab from this morning. HGB is stable at 8.8 and he has a normal WBC and normal PLT's. Diff is unremarkable. The BMP shows a sodium of 144 and a potassium of 3.1. He has not been on a potassium supplement. Creat is 1.55 which is down form 1.78 on . CFR is 45. His last BNP was on 05/11 and it was 4,149. I reviewed all the recent CXR's. Reviewed the carlito duncan notes and talked with the pt and his dtr-in-law. He is sitting upright in the chair at the bedside. He is not tachypneic and he is able to speak in complete sentences. Abd is protuberant but, NT Lungs Coarse crackles in the left lung 1/2-2/[address] the posterior lung field. The BS's in the R lung are very diminished and he has aegophony. No wheezing. No cough with deep breathing. He has no significant ankle edema and he has no calf tenderness. No cyanosis. Objective Data Objective Data Vital Signs: Vital Signs Temp Pulse Resp BP Pulse Ox O2 Del Method O2 Flow Rate 97.9 F 77 24 H 135/56 H 99 Nasal Cannula 5 05/22/25 08:24 05/22/25 13:58 05/22/25 13:30 05/22/25 13:27 05/22/25 13:58 05/22/25 13:58 05/22/25 13:58 Oxygen Flow Rate (L/min) 5 Oxygen Delivery Method Nasal Cannula Weight: 155 lb Body Mass Index (BMI) 25.0 Intake & Output: Intake and Output for Last 24 Hours 05/20/25 05/21/25 05/22/25 23:59 23:59 23:59 Intake Total 1200 / 1200 1540 / 1540 700 / 700 Output Total 450 / 450 Balance 1200 / 1200 1540 / 1540 250 / 250 Lab / Micro Data 05/22/25 08:03 05/22/25 08:03 Labs: Laboratory Results - last 24 hr 05/21/25 16:28: POC Glucose 229 H 05/21/25 21:10: POC Glucose 206 H 05/22/25 06:09: POC Glucose 80 05/22/25 08:03: WBC 8.7, RBC 3.30 L, Hgb 8.8 L, Hct 30.7 L, MCV 93.0, MCH 26.7 L , MCHC 28.7 L, RDW Std Deviation 54.2 H, RDW Coeff of Reggie 16.0 H, Plt Count 235, MPV 10.5, Immature Gran % (Auto) 1.000 H, Neut % (Auto) 74.2 H, Lymph % (Auto) 10.8 L, Park % (Auto) 10.7 H, Eos % (Auto) 3.0, Baso % (Auto) 0.3, Absolute Neuts (auto) 6.5, Absolute Lymphs (auto) 0.94, Nucleated RBC % 0, Sodium 144, P otassium 3.1 L, Chloride 93 L, Carbon Dioxide 38.9 H, Anion Gap 12, BUN 22 H, C reatinine 1.55 H, Estim Creat Clear Calc 34.30 L, Est GFR (MDRD) Non-Af 45 L, BUN/Creatinine Ratio 14.1, Glucose 108 H, Calcium 9.3 Micro: Microbiology 05/21/25 06:05 Nasal Secretion SARS-CoV-2 Antigen (Rapid) - Final Assessment & Plan Assessment/Plan (1) Recurrent right pleural effusion: (2) (HFpEF) heart failure with preserved ejection fraction: QUALIFIERS: Heart failure chronicity: chronic Qualified Code(s): I50.32 - Chronic diastolic (congestive) heart failure (3) History of COPD: (4) Chronic kidney disease, stage 3b: (5) Type 2 diabetes mellitus with hyperglycemia: QUALIFIERS: Diabetes mellitus director long term care insulin use: with director long term care use Qualified Code(s): E11.65 - Type 2 diabetes mellitus with hyperglycemia; Z79.4 - FDC (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 of insulin (6) Atrial fibrillation: QUALIFIERS: Atrial fibrillation type: unspecified chronic Q ualified Code(s): I48.20 - Chronic atrial fibrillation, unspecified (7) History of lung cancer: (8) Debility: (9) Anxiety: (10) 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 Place the Florinef on hold. 2. ACCURATE I&O's and daily weights. He is continent of urine with rare exceptions so no Claudio needed. 3. Check a Cortrosyn stim test in the AM since he has adrenal mets and he is orthostatic. Continue Midodrine for now. 4. Orthostatic VS in the AM 5. DC Lorazepam and start Buspar 5 mg BID for chronic anxiety 6. Palliative care consult Sunday. Pt is agreeable 7. Dr. Uriarte is back Sunday.......will discuss this patient with him.......is there another option other than doing frequent thoracentesis? 8. BMP in the AM 9. Change Lasix to IV for a couple days. Monitor creat closely 10. Decrease the HS Glargine to 16 units......Bs's n AM only in the 80's and no need to keep[ it this tightly controlled in this eldrly pt with lung CA. BS's in the 200's during the day. Start Amaryl 1 mg daily. Charges/Coding Visit Charges Inpatient E&M: 39696 SNF Subs L3
[2025-05-22] MEDS: 0.9% Saline Lock 10 ML Syringe IV (16:34)
[2025-05-22] MEDS: Petrolatum 33% Tube 1 APPLIC TOPICAL (22:31)
[2025-05-22] MEDS: MELATONIN 3 MG TABLET PO (22:34)
[2025-05-22] MEDS: Insulin Glargine-YFGN 100 UNIT/ML Pen 16 UNIT SC (22:35)
[2025-05-23] VITALS (9 sets, daily range): BP systolic 133–142; BP diastolic 60–62; PULSE 65–85; RESP 17–18; TEMP 36.4; O2SAT 96–99; BMI 24.9
[2025-05-23] MEDS: Cosyntropin 0.25 MG in 0.9% Normal Saline (Pres. free 4 ML 150 MG IV (06:53)
[2025-05-23] MEDS: 0.9% Saline Lock 10 ML Syringe IV ×2 (06:53→22:00)
[2025-05-23 07:51] LABS: Anion Gap 9 (5-15); BUN 23 mg/dL (4-19); BUN/Creat Ratio 13.7 RATIO (10-20); Calcium,Total 9.0 mg/dL (7.6-11.0); Carbon Dioxide 37.2 mmol/L (21.0-32.0); Chloride 93 mmol/L (98-108); Estimated Creatinine Clearance 31.46 ml/min (50-250); Glucose 105 mg/dL (70-99); Potassium 3.5 mmol/L (3.3-5.1); Pro- Brain NATRIURETIC PEPTIDE 3570 pg/mL (<=1800)
[2025-05-23 07:59] LABS: CORTISOL AM 18.90 ug/dL (6.02-18.40)
--- NOTE | 2025-05-23 08:00 | RAD_ITS ---
PROCEDURE: CHEST PA AND LATERAL 05/23/2025 REASON FOR EXAM: PLEURAL EFFUSIONS TECHNIQUE: Procedure Code: RADCXR Modality: DX Procedure: CHEST PA AND LATERAL COMPARISON: 05/19/2025 FINDINGS: LINES: Left-sided pacemaker device with right atrial and right ventricular leads. LUNGS AND PLEURA: Persistent moderate right pleural effusion with associated basilar opacity. Small lucent focus in the right lung apex with absent lung markings Unchanged small left pleural effusion. Bilateral interstitial thickening and airspace disease is unchanged. HEART AND MEDIASTINUM: The cardiac silhouette is enlarged. The mediastinal contour is normal. Evidence of prior CABG with sternal wires in place. AORTA: Calcified thoracic aorta. BONES: No acute osseous abnormality. RAD/Chest PA and Lateral IMPRESSION: 1. Similar-appearing moderate right pleural effusion with basilar atelectasis/ infiltrate. 2. Small right apical lucency without lung markings, possibly pneumothorax marine alyssia focal pocket of aerated lung within pleural fluid. This was faintly seen on the prior study. Reading Location: [id number]
[2025-05-23 08:28] LABS: CORTISOL AM 35.50 ug/dL (6.02-18.40)
[2025-05-23] MEDS: APIXABAN 2.5 MG TABLET (WCH) PO ×2 (08:36→21:58)
[2025-05-23] MEDS: Metoprolol(XL)Succ 25 MG Tablet 12.5 MG PO ×2 (08:38→21:59)
[2025-05-23] MEDS: Glucerna Shake 120 ML LIQUID PO ×3 (08:44→18:19)
[2025-05-23] MEDS: Potassium Chloride Oral Tablet 10 MEQ PO (13:37)
[2025-05-23] MEDS: Potassium Chloride Oral Tablet 20 MEQ PO (13:37)
[2025-05-23] MEDS: Insulin Glargine-YFGN 100 UNIT/ML Pen 16 UNIT SC (21:59)
[2025-05-23] MEDS: MELATONIN 3 MG TABLET PO (21:59)
[2025-05-23] MEDS: Petrolatum 33% Tube 1 APPLIC TOPICAL (22:08)
[2025-05-24] VITALS (7 sets, daily range): BP systolic 118–141; BP diastolic 44–60; PULSE 62–81; RESP 17–18; TEMP 36.6; O2SAT 96; BMI 22.8
[2025-05-24] MEDS: Metoprolol(XL)Succ 25 MG Tablet 12.5 MG PO ×2 (08:00→21:40)
[2025-05-24] MEDS: APIXABAN 2.5 MG TABLET (WCH) PO ×2 (08:00→21:39)
[2025-05-24] MEDS: Glucerna Shake 120 ML LIQUID PO ×2 (08:02→13:44)
[2025-05-24] MEDS: Potassium Chloride Oral Tablet 10 MEQ PO (08:10)
--- NOTE | 2025-05-24 12:25 | PCM.PROGNOTE ---
Subjective Subjective Afebrile VSS - Maintaining appropriate oxygen saturation on 4 L/min of nasal O2 while at rest but desaturates with exertion and we have to turn the oxygen up to 6 L/min. Oral intake - FOOD fair to good FLUIDS intake and output are not accurate Weight today is listed as 141 pounds and 6.4 ounces which is down from 154 pounds and 6.4 ounces yesterday ? Not possible Last bowel movement was 06-13. He denies constipation and abdominal pain. Last thoracentesis was 05/19 CXR on 05/23/25 essentially unchanged. Discussed with nursing - no problems that need addressed Reviewed the THERAPY notes Medication list reviewed. He feels that the Buspar is helping and he is less anxious. He slept well last night. Denies CP. Denies lightheadedness. No dysuria. Objective Data Objective Data Vital Signs: Vital Signs Temp Pulse Resp BP Pulse Ox O2 Del Method O2 Flow Rate 97.8 F 62 18 118/44 L 96 Nasal Cannula 4 05/24/25 07:58 05/24/25 08:00 05/24/25 07:58 05/24/25 07:58 05/24/25 07:58 05/24/25 07:58 05/24/25 07:58 Oxygen Flow Rate (L/min) 4 Oxygen Delivery Method Nasal Cannula Weight: 141 lb 6.4 oz Body Mass Index (BMI) 22.8 Intake & Output: Intake and Output for Last 24 Hours 05/22/25 05/23/25 05/24/25 23:59 23:59 23:59 Intake Total 820 / 820 1271 / 1271 240 / 240 Output Total 550 / 550 400 / 400 Balance 270 / 270 1271 / 1271 -160 / -160 Lab / Micro Data 05/22/25 08:03 05/23/25 06:51 Labs: Laboratory Results - last 24 hr 05/23/25 16:27: POC Glucose 196 H 05/23/25 20:57: POC Glucose 238 H 05/24/25 06:06: POC Glucose 75 Micro: Microbiology 05/23/25 06:33 Nasal Secretion SARS-CoV-2 Antigen (Rapid) - Final 05/21/25 06:05 Nasal Secretion SARS-CoV-2 Antigen (Rapid) - Final Physical Exam Const alert Constitutional Narrative: Sitting in the recliner at the bedside with his legs dependent. Mild conversational dyspnea. General Appearance: cooperative Resp Resp Narrative: Mildly increased RR with mild conversational dyspnea. Pursed lip breathing at times after talking. Not coughing, denies CP. The coarse crackles in the L base have improved.....BS's are mildly diminished. The breath sounds in the right posterior chest are markedly diminished 1/[address] up the posterior lung field. No rales. No wheezes. Not coughing with deep breath. Extremity no calf tenderness General Extremity: Negative for edema Assessment & Plan Assessment/Plan (1) Recurrent right pleural effusion: (2) (HFpEF) heart failure with preserved ejection fraction: QUALIFIERS: Heart failure chronicity: chronic Qualified Code(s): I50.32 - Chronic diastolic (congestive) heart failure (3) History of COPD: (4) Chronic kidney disease, stage 3b: (5) Type 2 diabetes mellitus with hyperglycemia: QUALIFIERS: Diabetes mellitus residential insulin use: with residential use Qualified Code(s): E11.65 - Type 2 diabetes mellitus with hyperglycemia; Z79.4 - residential (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 of insulin (6) Atrial fibrillation: QUALIFIERS: Atrial fibrillation type: unspecified chronic Qualified Code(s): I48.20 - Chronic atrial fibrillation, unspecified (7) History of lung cancer: (8) Debility: (9) Anxiety: (10) 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 We had a discussion about his diagnosis and prognosis. Last PET in October 2023 showed L adrenal metastasis and he was unaware of this. I explained that I suspect the R pleural is malignant. The last thoracentesis showed RB's and lymphocytes with no malignant cells. There have been no TP and LDH done at the time of the thoracentesis so unable to diagnose with transudate vs exudate. FLuid reaccumulates despite diuresis. I&O's not accurate, daily weights not accurate. He has no ankle edema today. Will discuss with Dr. Uriarte in the AM to see if he has any recommendations regarding pleurodesis or a pleurex catheter. Check a TP and LDH tomorrow and order a thoracentesis if Dr. Uriarte recommends. 2. CODE STATUS: Discussed code status at length with William including the difference between FULL CODE, DNR CCA and DNR CC status. All questions were answered. An order for DNR CC arrest no intubation was entered into the computer. A total of 20 minutes face to face time was devoted to advanced care planning. I called his [id number] Neelam and informed her of the change in CODE STATUS. She is agreeable with this and she will discuss with her . 3. We discussed a hospice consult and he is ready for this. Will consult the palliative care service in the a.m. and arrange for meeting with hospice. William would like family present at that meeting. 4. Increase the BuSpar to 5 mg 3 times daily for control of anxiety. 5. Continue Lasix 40 mg p.o. daily and continue to hold Florinef. He denies lightheadedness and orthostatics yesterday were negative. Florinef only contributes to increased fluid retention. Charges/Coding Visit Charges Inpatient E&M: 37705 SNF Subs L2
[2025-05-24] MEDS: Petrolatum 33% Tube 1 APPLIC TOPICAL (21:39)
[2025-05-24] MEDS: Insulin Glargine-YFGN 100 UNIT/ML Pen 16 UNIT SC (21:39)
[2025-05-24] MEDS: 0.9% Saline Lock 10 ML Syringe IV (21:40)
[2025-05-24] MEDS: MELATONIN 3 MG TABLET PO (21:40)
[2025-05-25] VITALS (7 sets, daily range): BP systolic 119–130; BP diastolic 56–64; PULSE 60–76; RESP 17–20; TEMP 36.7; O2SAT 93–99; BMI 24.2
[2025-05-25] MEDS: Potassium Chloride Oral Tablet 10 MEQ PO (08:10)
[2025-05-25] MEDS: Metoprolol(XL)Succ 25 MG Tablet 12.5 MG PO ×2 (08:10→22:23)
[2025-05-25] MEDS: APIXABAN 2.5 MG TABLET (WCH) PO ×2 (08:11→22:22)
[2025-05-25] MEDS: Glucerna Shake 120 ML LIQUID PO ×2 (08:11→13:52)
[2025-05-25 08:19] LABS: LDH 270 U/L (87-241); Magnesium 2.3 mg/dL (1.5-2.2)
[2025-05-25 08:41] LABS: Anion Gap 8 (5-15); BUN 32 mg/dL (4-19); BUN/Creat Ratio 18.3 RATIO (10-20); Calcium,Total 9.1 mg/dL (7.6-11.0); Carbon Dioxide 37.1 mmol/L (21.0-32.0); Chloride 95 mmol/L (98-108); Estimated Creatinine Clearance 30.38 ml/min (50-250); Glucose 77 mg/dL (70-99); Potassium 3.6 mmol/L (3.3-5.1)
[2025-05-25] MEDS: morphine (oral solution) 10MG/0.5ML Syringe 2.5 MG SL/PO ×2 (14:05→18:55)
--- NOTE | 2025-05-25 14:08 | CASEMGMT ---
Addendum entered by Criselda Townsend 05/25/25 14:54: [facility] accept. SW to update pt/family. Original Note: Social Work SW was informed by SANDWICH BOARD CARRIER and MD that conversation was had with pt and family about prognosis, code status and hospice. pt agreed to DNR-CC and hospice services at [place]. - SW spoke with pt at bedside. SW inquired how pt was doing and offered to ask any questions. pt stated he is still digesting the information but his DIL will visit this afternoon and make decisions from there. SW explained this worker can make referral to hospice agency and hospice can meet with pt and family to discuss services. SW will return to speak with DIL when she was present. - SW returned to pt's room and DIL was present. SW explained this worker can refer to hospice agencies and provided list of options. SW reiterated pt can DC home with 12/03 care, but [facility] will approve about 8hrs/wk and pt would need to supplement that. Dtr agreed home is not going to be the best option. VIJAY explained the VA cannot approve a SNF until after his appt on 05/27, and it may take 24-28 hrs to get approved, ie. pt likely to DC Fri or Sat. DIL expressed understanding. SW provided list of SNFs INN with VA, that includes quality and resource data via [employer] Guide. DIL reviewed the list with pt and both selected [facility] and [facility]. SW to place referrals. VIJAY explained once pt/family select hospice preference, this worker can make that referral as well. LUPE inquired about [facility]. VIJAY explained there is strict criteria, such as prognosis and symptoms, but offered to make referral and have nurse assess. Cautioned that once pt is approved, there would not be a delay to DC and unsure if VA covers that cost. VIJAY also noted that pt may need to DC to a SNF after IPU; it is not LTC. LUPE expressed understanding and appreciative of assistance. VIJAY will continue to follow. Criselda Townsend CURLING MACHINE OPERATOR EXECUTIVE SALES ASSISTANT
--- NOTE | 2025-05-25 14:14 | CASEMGMT ---
Discharge Planning Referral sent to Iraj and She. Carly Salmon DC Planning Asst.
[2025-05-25] MEDS: Insulin Glargine-YFGN 100 UNIT/ML Pen 10 UNIT SC (22:21)
[2025-05-25] MEDS: MELATONIN 3 MG TABLET PO (22:21)
[2025-05-25] MEDS: Petrolatum 33% Tube 1 APPLIC TOPICAL (22:22)
[2025-05-26] VITALS (9 sets, daily range): BP systolic 113–147; BP diastolic 38–48; PULSE 60–81; RESP 17–20; TEMP 36.2; O2SAT 92–100; BMI 25.1
--- NOTE | 2025-05-26 06:42 | MDS.RN ---
Information for the MDS was obtained from review of the clinical record, interview of resident, staff, and direct observation of resident?s care.
--- NOTE | 2025-05-26 07:23 | NURSING ---
Am accucheck 66, post snack result 79. Asymptomatic. Written communication left for Dr. Olvio.
[2025-05-26] MEDS: morphine (oral solution) 10MG/0.5ML Syringe 2.5 MG SL/PO ×2 (07:40→15:54)
[2025-05-26] MEDS: Metoprolol(XL)Succ 25 MG Tablet 12.5 MG PO ×2 (07:48→22:03)
[2025-05-26] MEDS: Potassium Chloride Oral Tablet 10 MEQ PO (07:49)
[2025-05-26] MEDS: APIXABAN 2.5 MG TABLET (WCH) PO ×2 (07:49→22:01)
[2025-05-26] MEDS: Senna/Docusate Sodium 1 Tablet PO ×2 (07:53→21:59)
--- NOTE | 2025-05-26 08:55 | CASEMGMT ---
Addendum entered by Criselda Townsend 05/26/25 14:31: Hospice is scheduled to meet with pt/family tomorrow at 1100. hospice will assess for IPU and longevity of remaining in that facility. Original Note: Social Work SW phoned DIL to follow up on hospice agency and to inform her that [facility] and [facility] both can accept the pt. DIL chose [facility]. SW inquired about IPU or SNF. DIL/family does not want pt to have to move to another SNF if he cannot remain in IPU and opted for SNF. DIL to speak with and pt about FOC and notify this worker. SW to place referral to hospice and hospice will contact LUPE for meeting. LUPE appreciative. - SW sent referral via email to hospice and noted pt/family would be open to IPU if he does not have to move facilities. Criselda Townsend LAVENDER FARM WORKER HOSE TUBING BACKER
--- NOTE | 2025-05-26 10:44 | NURSING ---
reduced oxygen to 5 liters, pt resting in chair, roxanol effective for SOB. pt states i am breathing better. call light in reach.
[2025-05-26] MEDS: Glucerna Shake 120 ML LIQUID PO ×2 (13:32→17:05)
--- NOTE | 2025-05-26 13:36 | NURSING ---
rechecked BP and O2 sats, pt 90% on 5 liters, noted whistling sound from humidification on wall. noted that white attachments were loose on humidification to wall. immediately pt was getting more oxygen and sats increased to 100%, reduced oxygen to 4 liters while resting, sat stayed at 100% for 5 minutes. will continue to monitor, pt educated to call staff if he notices difficulty breathing. pt stated i can feel the air now
[2025-05-26] MEDS: 0.9% Saline Lock 10 ML Syringe IV (21:59)
[2025-05-26] MEDS: Insulin Glargine-YFGN 100 UNIT/ML Pen SC (22:01)
[2025-05-26] MEDS: Petrolatum 33% Tube 1 APPLIC TOPICAL (22:02)
[2025-05-26] MEDS: MELATONIN 3 MG TABLET PO (22:03)
[2025-05-27 05:57] VITALS: PULSE 60; RESP 20; O2SAT 99
[2025-05-27 07:23] VITALS: PULSE 60; RESP 20
[2025-05-27 07:37] VITALS: BP 129/48; PULSE 61; RESP 19; TEMP 36.4; O2SAT 4
[2025-05-27 07:41] VITALS: PULSE 61
[2025-05-27] MEDS: APIXABAN 2.5 MG TABLET (WCH) PO (07:41)
[2025-05-27] MEDS: Glucerna Shake 120 ML LIQUID PO (07:41)
[2025-05-27] MEDS: Metoprolol(XL)Succ 25 MG Tablet 12.5 MG PO (07:41)
[2025-05-27] MEDS: Potassium Chloride Oral Tablet 10 MEQ PO (07:42)
[2025-05-27] MEDS: Senna/Docusate Sodium 1 Tablet PO (07:45)
[2025-05-27] MEDS: 0.9% Saline Lock 10 ML Syringe IV (07:52)
--- NOTE | 2025-05-27 11:30 | NURSING ---
hospice in with pt and family at this time
[2025-05-27] MEDS: morphine (oral solution) 10MG/0.5ML Syringe 2.5 MG SL/PO (12:23)
--- NOTE | 2025-05-27 12:30 | DS.PCM_ITS ---
Providers Date of Admission: 05/14/25 Primary Care Physician: Dr. Luis Johnson DO Reason For Visit: ACUTE RESPIRATORY FAILURE Diagnosis Discharge Diagnosis (1) Recurrent right pleural effusion: Status: Acute Code(s): J90 - Pleural effusion, not elsewhere classified (2) (HFpEF) heart failure with preserved ejection fraction: Status: Acute Code(s): I50.30 - Unspecified diastolic (congestive) heart failure Qualifiers: Heart failure chronicity: chronic Qualified Code(s): I50.32 - Chronic diastolic (congestive) heart failure (3) History of COPD: Status: Chronic Code(s): Z87.09 - Personal history of other diseases of the respiratory system (4) Chronic kidney disease, stage 3b: Status: Acute Code(s): N18.32 - Chronic kidney disease, stage 3b (5) Type 2 diabetes mellitus with hyperglycemia: Status: Acute Code(s): E11.65 - Type 2 diabetes mellitus with hyperglycemia Qualifiers: Diabetes mellitus longterm insulin use: with longterm use Qualified Code(s): E11.65 - Type 2 diabetes mellitus with hyperglycemia; 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 (6) Atrial fibrillation: Status: Acute Code(s): I48.91 - Unspecified atrial fibrillation Qualifiers: Atrial fibrillation type: unspecified chronic Qualified Code(s): I48.20 - Chronic atrial fibrillation, unspecified (7) History of lung cancer: Status: Acute Code(s): Z85.118 - Personal history of other malignant neoplasm of bronchus and lung (8) Debility: Status: Acute Code(s): R53.81 - Other malaise (9) Anxiety: Status: Acute Code(s): F41.9 - Anxiety disorder, unspecified (10) 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: Status: Acute Code(s): C79.72 - Secondary malignant neoplasm of left adrenal gland (11) Orthostatic hypotension: Status: Acute Code(s): I95.1 - Orthostatic hypotension (12) Pulmonary HTN: Status: Acute Code(s): I27.20 - Pulmonary hypertension, unspecified (13) Pulmonary fibrosis: Status: Suspected Code(s): J84.10 - Pulmonary fibrosis, unspecified Plan 80 year old male with below past medical history hospitalized for acute respiratory failure with hypoxia 2/2 pleural effusion, acute HFpEF, underwent thoracentesis, complicated by pneumothorax, admitted to TCU with debility, here for rehabilitation, strengthening, prior to discharge home. * Debility - PT/OT. * Pain - Tylenol 650mg q6 prn. * Bowel - senna/colace 1 tablet bid. * Adult immunization - Administer pneumonia vaccine, covid vaccine, flu vaccine as appropriate. * DVT prophylaxis - Eliquis. * COPD - Duoneb 3mL q8, Albuterol 2.5mg q4. * Atrial fibrillation - Metoprolol succinate 12.5mg bid, Eliquis 2.5mg bid. * PAOD - Plavix 75mg daily. * Orthostatic hypotension - Florinef 0.1mg bid, Midodrine 10mg tid. * Chronic HFpEF - Metoprolol succinate 12.5mg bid, Furosemide 40mg daily. * Nutrition - Glucerna Shake 120mL tid, MVI 1 tablet daily. * Diabetes Mellitus II - Glargine 20 untis qhs. * Skin irritaton - Calmoseptine topical bid, Petrolatum qhs. * Tinea Corporis - Nystatin powder topical bid. * Hyperlipidemia - Pravastatin 20mg qhs. * BPH - Tamsulosin 0.4mg daily. Medications at Discharge Home Medications OXYGEN - Supplemental ([facility] INFORMATIONAL USE ONLY) 04/09/25 Hospital Course Operations None Procedures Thoracentesis Summary of Care Provided Minutes Spent on Discharge: 35 Hospital Course: 80 year old male with below past medical history hospitalized for acute respiratory failure with hypoxia 2/2 pleural effusion, acute HFpEF, underwent thoracentesis, complicated by pneumothorax, admitted to TCU with debility, here for rehabilitation, strengthening, prior to discharge home. William declining, multiple hospitalization, requesting comfort care. Discharge to Inpatient Hospice 05/27/2025. Physical Exam Const alert General Appearance: cooperative HEENT normocephalic Eyes PERRL and EOMs intact bilaterally Neck supple, no JVD and no carotid bruits Resp normal respiratory effort, normal air movement and clear to auscultation bilaterally Cardio regular rate and regular rhythm GI normal to inspection, nondistended, normoactive bowel sounds, non-tender and non-distended Extremity normal capillary refill General Extremity: Negative for edema Skin no rashes or lesions noted General Skin Exam: no breakdown Psych affect normal Appearance: appropriate Weight / BMI Weight Weight: 70.67 kg Body Mass Index (BMI) 25.1 ABG / Lab / Microbiology Data 05/22/25 08:03 05/25/25 07:13 Laboratory: Laboratory Results - last 24 hr 05/26/25 21:04: POC Glucose 142 H 05/27/25 06:13: POC Glucose 104 Microbiology: Microbiology 05/25/25 06:04 Nasal Secretion SARS-CoV-2 Antigen (Rapid) - Final 05/23/25 06:33 Nasal Secretion SARS-CoV-2 Antigen (Rapid) - Final 05/21/25 06:05 Nasal Secretion SARS-CoV-2 Antigen (Rapid) - Final D/C Instructions Discharge Activity: Return to Normal Activity Weight Bearing Status: Weight bearing as tolerated DC O2, CPAP, BIPAP Needs Home O2 Discharge instructions: No Additional Instructions: Discharge to Inpatient Hospice 05/27/2025. Please Follow Up With: JASWANT DODGE DO When: Cancel. Meaningful Use Info Meaningful Use Meaningful Use Diagnoses (Choose all that apply): None applicable Discharge Plan Admission Admit Date/Time: 05/14/25 17:35 Primary Reason for Your Visit: Debility. Attending Provider: Valdez Olivo Chi Primary Care Provider: Luis Johnson Instructions Additional Instructions / Restrictions: Discharge to Inpatient Hospice 05/27/2025. Discharge Orders/Prescriptions Prescriptions: Discontinued multivitamin [Daily Multi-Vitamin] Tablet 1 tab PO DAILY pravastatin 20 mg tablet 20 mg PO DAILY Eliquis 5 mg Tablet 2.5 mg PO BID 30 Days Qty: 30 3RF tamsulosin 0.4 mg Capsule 0.4 mg PO DAILY@1730 30 Days Qty: 30 2RF clopidogrel 75 mg tablet 75 mg PO DAILY insulin glargine-yfgn 100 unit/mL (3 mL) Insulin Pen 20 unit subcut QHS furosemide 40 mg Tablet 40 mg PO DAILY Qty: 0 0RF sucralfate 1 gram Tablet 1 g PO 1HR_ACHS Qty: 0 0RF ipratropium-albuterol 0.5 mg-3 mg(2.5 mg base)/3 mL solution for nebulization 3 ml inhalation Q8H acetaminophen 325 mg Tablet 650 mg PO Q6H PRN PRN (Reason: Pain 1-10 Or Fever>100.7) Qty: 0 0RF albuterol sulfate 2.5 mg /3 mL (0.083 %) Solution For Nebulization 2.5 mg inhalation Q4H PRN (Reason: shortness of breath or wheezing) Qty: 0 0RF midodrine 5 mg Tablet 10 mg PO TIDCM Qty: 0 0RF fludrocortisone 0.1 mg Tablet 0.1 mg PO BID Qty: 0 0RF insulin lispro [Humalog KwikPen Insulin] 100 unit/mL Insulin Pen See Protocol subcut ACHS Qty: 0 0RF Protocol: 3. Sliding Scale Insulin Med Dosing Condition: 150-189 mg/dl = 1 unit Condition: 190-229 mg/dl = 2 units Condition: 230-269 mg/dl = 3 units Condition: 270-309 mg/dl = 4 units Condition: 310-349 mg/dl = 5 units Condition: 350-399 mg/dl = 6 units Condition: 400-449 mg/dl = 7 units Condition: Greater than 449 call physician Protocol Text: Suggested for: - Patients on Total Daily Insulin Dose of 37-55 units - Obese, infected, or steroid patients MEDIUM DOSING ALGORITHIM Glucerna 1.2 Gonzalo 0.06-1.2 gram-kcal/mL Liquid 120 ml PO TIDCM Qty: 0 0RF metoprolol succinate 25 mg tablet extended release 24 hr 12.5 mg PO BID Qty: 90 3RF No Action (DME) OXYGEN - Supplemental ([facility] INFORMATIONAL USE ONLY) Gas See Rx Instructions .ROUTE Patient Comments: 2 lpm at rest, 3 lpm on exertion, 2 lpm at HS DME company: [employer] Rx Instructions: As directed Referrals / Follow Up: Luis Johnson DO [Primary Care Provider, Family Practice] Disposition Disposition (needs filled in before D/C Order can be placed): Hospice in Medical Facility
--- NOTE | 2025-05-27 12:36 | CASEMGMT ---
Social Work VIJAY spoke with Rosario, hospice nurse present, and pt is approved for IPU. VIJAY spoke with pt, DIL and son in room. All in agreement to DC to IPU this date. VIJAY phoned [facility] and scheduled cot transport for 1530. IDT updated. Plan: DC 05/27 to [facility] Criselda CRUZW
[2025-05-27 13:06] VITALS: BP 140/56; PULSE 69; RESP 20; TEMP 36.9; O2SAT 98
--- NOTE | 2025-05-27 13:57 | NURSING ---
report called to Hospice nurse at this time.
[2025-05-27 15:48] VITALS: PULSE 61; RESP 20
== END 2025-05-27 16:35 | disposition hospice, inpatient (51) | DRG 291 ==
PROVIDERS: Internal Medicine; Admitting Provider Family Medicine Geriatric Medicine; PCP Family Medicine; Visit Provider Family Medicine Geriatric Medicine
DX: I13.0 Hypertensive heart and chronic kidney disease with heart failure and stage 1 through stage 4 chronic kidney disease, or unspecified chronic kidney disease (principal); J96.01 Acute respiratory failure with hypoxia; I50.33 Acute on chronic diastolic (congestive) heart failure; C78.1 Secondary malignant neoplasm of mediastinum; C79.72 Secondary malignant neoplasm of left adrenal gland; I48.19 Other persistent atrial fibrillation; C34.90 Malignant neoplasm of unspecified part of unspecified bronchus or lung; J91.8 Pleural effusion in other conditions classified elsewhere; J95.811 Postprocedural pneumothorax; E11.22 Type 2 diabetes mellitus with diabetic chronic kidney disease; I27.20 Pulmonary hypertension, unspecified; B35.4 Tinea corporis; Z66 Do not resuscitate; J43.2 Centrilobular emphysema; N18.32 Chronic kidney disease, stage 3b; I49.5 Sick sinus syndrome; E11.42 Type 2 diabetes mellitus with diabetic polyneuropathy; E11.65 Type 2 diabetes mellitus with hyperglycemia; E11.51 Type 2 diabetes mellitus with diabetic peripheral angiopathy without gangrene; E78.5 Hyperlipidemia, unspecified; I95.1 Orthostatic hypotension; I25.10 Atherosclerotic heart disease of native coronary artery without angina pectoris; Z79.4 Long term (current) use of insulin; J84.10 Pulmonary fibrosis, unspecified; F41.9 Anxiety disorder, unspecified; N40.0 Benign prostatic hyperplasia without lower urinary tract symptoms; Z87.891 Personal history of nicotine dependence; Y84.4 Aspiration of fluid as the cause of abnormal reaction of the patient, or of later complication, without mention of misadventure at the time of the procedure; Z95.0 Presence of cardiac pacemaker; Z79.899 Other long term (current) drug therapy; Z79.01 Long term (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 of anticoagulants; Z99.81 Dependence on supplemental oxygen; G47.00 Insomnia, unspecified; Z23 Encounter for immunization
CPT/HCPCS: 36415; 71046; 80048; 82533; 82962; 83615; 83735; 83880; 84155; 85025; 87811; 94640; 94668; 97110; 97116; 97162; 97166; 97530; 97535; 97802; A4216; J0834

== ENCOUNTER → 2025-05-19 | Outpatient (CLI) | payer MEDICARE, OTHER, SELFPAY ==
--- OUTSIDE RECORDS SUMMARY | 2025-04-13 05:27 | XMS RPT_ITS ---
Author Name Auto Generated Organization OHIP Care Team Providers Care Wheel Braider Name Role Phone KERMIT STRATTON, ABBI Strauss Consulting Unavailable HALLIE STRATTON, DR DAVID Ovalle Admitting Unavailable GLORIA ALEGRE MD Attending Unavailable DR TONIO FAJARDO DO Primary Care Unavailab le PROBLEMS DATE TYPE CONDITION / CODE ATTENDING STATUS SAMMI RCE 04/13/2025 Unknown Other specified pleural conditions / J94.8(ICD-10) SIS STRATTON, [facility] 04/13/2025 Unknown Pneumonia, unspe cified organism / J18.9(ICD-10) SIS STRATTON, [facility] 04/13/2025 Unknown Unspecified atri al fibrillation / I48.91(ICD-10) SIS STRATTON, [facility] 04/13/2025 Unknown Presence of card iac pacemaker / Z95.0(ICD-10) SIS STRATTON, [facility] MAIN 04/13/2025 Unknown Peripheral vascu lar disease, unspecified / I73.9(ICD-10) SIS STRATTON, [facility] 04/13/2025 Unknown Benign prostatic hyperplasia without lower urinary tract symptoms / N40.0(ICD-10) SIS STRATTON, [facility] 04/13/2025 Unknown Chronic kidney disease, unspecified / N18.9(ICD-10) SIS STRATTON, [facility] 04/13/2025 Unknown Hyperlipidemia, unspecified / E78.5(ICD-10) SIS STRATTON, [facility] 04/13/2025 Unknown Type 2 diabetes mellitus without complications / E11.9(ICD-10) SIS STRATTON, [facility] 04/13/2025 Unknown Polyneuropathy, unspecified / G62.9(ICD-10) SIS STRATTON, [facility] 04/13/2025 Unknown Anemia, unspecif ied / D64.9(ICD-10) SIS STRATTON, [facility] 04/13/2025 Unknown Essential (prima ry) hypertension / I10(ICD-10) SIS STRATTON, [facility] 04/13/2025 Unknown 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(ICD-10) SIS STRATTON, [facility] 04/13/2025 Unknown Unspecified multani tolic (congestive) heart failure / I50.30(ICD-10) SIS STRATTON, [facility] 04/13/2025 Unknown Chronic obstruct leah pulmonary disease, unspecified / J44.9(ICD-10) SIS STRATTON, [facility] 04/13/2025 Unknown Other specified abnormal findings of blood chemistry / R79.89(ICD-10) SIS STRATTON, [facility] 04/13/2025 Final Diagnosis (Discharge) Pneumothorax, unspecified / J93.9(ICD-10) SIS STRATTON, [facility] 04/13/2025 Final Diagnosis (Discharge) Sepsis, unspecified organism / A41.9(ICD-10) SIS STRATTON, [facility] 04/13/2025 Final Diagnosis (Discharge) Acute and chronic respiratory failure with hypoxia / J96.21(ICD-10) SIS STRATTON, [facility] 04/13/2025 Final Diagnosis (Discharge) Chronic diastolic (congestive) heart failure / I50.32(ICD-10) SIS STRATTON, [facility] 04/13/2025 Final Diagnosis (Discharge) Chronic obstructive pulmonary disease with (acute) lower respiratory infection / J44.0(ICD-10) SIS STRATTON, [facility] 04/13/2025 Final Diagnosis (Discharge) Chronic respiratory failure with hypoxia / J96.11(ICD-10) SIS STRATTON, [facility] 04/13/2025 Final Diagnosis (Discharge) Pleural effusion in other conditions classified elsewhere / J91.8(ICD-10) SIS STRATTON, [facility] 04/13/2025 Final Diagnosis (Discharge) Chronic kidney disease, stage 3 unspecified / N18.30(ICD-10) SIS STRATTON [facility] 04/13/2025 Final Diagnosis (Discharge) 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) SIS STRATTON [facility] 04/13/2025 Final Diagnosis (Discharge) Type 2 diabetes mellitus with diabetic peripheral angiopathy without gangrene / E11.51(ICD-10) SIS STRATTON [facility] 04/13/2025 Final Diagnosis (Discharge) 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(ICD-10) SIS STRATTON, [facility] PROCEDURES No Procedure Records Found RESULTS APTT Collected: 12:17 PM Status: F Source: [facility] TYPE CODE TESTS RESULT OUT OF RANGE REFERENCE UNITS LAB APTT0(LOINC) APTT 73.1 High 25.0-35.0 seconds Result Comment: For Heparin anticoagulation therapy, the recommended therapeutic range is: 54-77 seconds (APTT Correlation with Anti-Xa therapeutic range of 0.3-0.7 units/ml). PLEASE REFERENCE THE PHARMACY PROTOCOL FOR DOSING. Performed By: #### APTT #### [address] [address] XR CHEST 1 VIEW Observed: 04/17/2025 5:25 AM Status: F Source: [facility] ORIGINAL EXAMINATION: ONE XRAY VIEW OF THE CHEST 04/17/2025 7:03 am COMPARISON: None. HISTORY: ORDERING SYSTEM PROVIDED HISTORY: Reason for Exam: Pleural effusion FINDINGS: Mild congestion/edema suspected with small bilateral effusions. Stable cardiomegaly. Left-sided cardiac pacer device is in place. No pneumothorax is identified. IMPRESSION: Mild congestion/edema with small bilateral effusions. Interpreted by: Abhishek Maki MD Preliminary Report By: Abhishek Maki MD Electronically signed By Abhishek Maki MD Dictated Date: 04/17/2025 8:00:40 AM Prelim Date: 04/17/2025 8:12:37 AM Sign Date: 04/17/2025 8:12:37 AM Ordering Provider: GLORIA ALEGRE CBC Collected: 5:15 AM Status: F Source: [facility] TYPE CODE TESTS RESULT OUT OF RANGE REFERENCE UNITS LAB WBC(LOINC) WBC 8.8 4.5-10.8 10 3/mcL LAB RBCCT(LOINC) RBC 3.29 Low 4.50-6.00 10 6/mcL LAB HGB(LOINC) Hgb 9.0 Low 13.0-17.5 G/dL LAB HCT(LOINC) Hct 27.4 Low 40.0-52.0 % LAB MCV(LOINC) MCV 83.4 81.0-100.0 fL LAB MCH(LOINC) MCH 27.3 27.0-33.0 pg LAB MCHC(LOINC) MCHC 32.7 32.0-36.0 G/dL LAB RDW(LOINC) RDW 18.3 High 11.5-15.5 % LAB PLT(LOINC) Platelet 163 150-450 10 3/mcL LAB MPV(LOINC) MPV 8.4 6.4-10.5 fL Performed By: #### CMP, CBC, GFR, APTT, ANEU, ADIFF, MG, TSHR, FT4 #### [place] [address] .AUTO DIFF Collected: 04/17/2025 5:15 AM Status: F Source: [facility] TYPE CODE TESTS RESULT OUT OF RANGE REFERENCE UNITS LAB JOSE(LOINC) Neutrophil % 80.1 High 50.0-75.0 % LAB LYM(LOINC) Lymphocyte % 5.5 Low 20.0-40.0 % LAB MON(LOINC) Monocyte % 9.6 2.0-13.0 % LAB EO(LOINC) Eosinophil % 4.2 0.0-6.0 % LAB BAS(LOINC) Basophil % 0.6 0.0-2.5 % LAB ABLYM(LOINC) Lymphocyte, Absolute 0.5 Low 0.9-4.3 10 3/mcL LAB JJ(LOINC) Monocyte, Absolute 0.8 0.1-1.4 10 3/mcL LAB AEOS(LOINC) Eosinophil, Absolute 0.4 0.0-0.7 10 3/mcL LAB ABAS(LOINC) Basophil, Absolute 0.0 0.0-0.3 10 3/mcL Performed By: #### CMP, CBC, GFR, APTT, ANEU, ADIFF, MG, TSHR, FT4 #### [address] [address] .NEUABS Collected: 5:15 AM Status: F Source: [facility] TYPE CODE TESTS RESULT OUT OF RANGE REFERENCE UNITS LAB ANEU(LOINC) Neutrophil, Absolute 7.1 2.3-8.1 10 3/mcL Performed By: #### CMP, CBC, GFR, APTT, ANEU, ADIFF, MG, TSHR, FT4 #### [place] [address] MG Collected: 04/17/2025 5:15 AM Status: F Source: [facility] TYPE CODE TESTS RESULT OUT OF RANGE REFERENCE UNITS LAB MG(LOINC) Magnesium Lvl 1.8 1.6-2.4 mg/dL Performed By: #### CMP, CBC, GFR, APTT, ANEU, ADIFF, MG, TSHR, FT4 #### [place] [address] TSHR Collected: 5:15 AM Status: F Source: [facility] TYPE CODE TESTS RESULT OUT OF RANGE REFERENCE UNITS LAB TSH(LOINC) TSH 4.806 High 0.550-4.780 mIU/mL Performed By: #### CMP, CBC, GFR, APTT, ANEU, ADIFF, MG, TSHR, FT4 #### [place] [address] CMP Collected: 04/17/2025 5:15 AM Status: F Source: [facility] Order Comment: vrb- called bella santana CO2 to KHURRAM Man 04/17/2025 06:09:20 EDT [facility] TYPE CODE TESTS RESULT OUT OF RANGE REFERENCE UNITS LAB GLU(LOINC) Glucose Level 174 High 82-115 mg/dL LAB NA(LOINC) Sodium Level 137 136-145 mEq/L LAB K(LOINC) Potassium Level 3.7 3.5-5.0 mEq/L LAB CL(LOINC) Chloride 88 Low 98-110 mEq/L LAB CO2(LOINC) CO2 >40 Abnormal Alert 22-32 mEq/L LAB EBAL(LOINC) Electrolyte Balance See Comment 4.0-15.0 mEq/L Result Comment: Unable to ca lculate this test result accurately. Results used to calculate this test are outside the reportable range. LAB BUN(LOINC) BUN 41.0 High 8.0-22.0 mg/dL LAB CRE(LOINC) Creatinine Lvl (s) 1.62 High 0.60-1.40 mg/dL Result Comment: Testing perf ormed on [employer] analyzer using enzymatic creatinine methodology. LAB BC(LOINC) BUN/Creatinine Ratio 25.3 High 10.0-22.0 ratio LAB CA(LOINC) Calcium Lvl 9.4 8.7-10.4 mg/dL LAB PROT(LOINC) Total Protein 6.2 5.7-8.2 G/dL LAB ALB(LOINC) Albumin Level 2.7 Low 3.2-4.8 G/dL LAB GLB(LOINC) Globulin 3.5 2.5-4.2 G/dL LAB AG(LOINC) A/G Ratio 0.8 Low 0.9-1.6 ratio LAB BILT(LOINC) Bili Total 0.40 0.20-1.20 mg/dL Result Comment: Use of this assay is not recommended for patients undergoing treatment with eltrombopag due to the potential for falsely elevated results. LAB AP(LOINC) Alk Phos 65 38-126 U/L LAB AST(LOINC) AST/SGOT 16 8-34 U/L LAB ALT(LOINC) ALT/SGPT 21 12-55 U/L Performed By: #### CMP, CBC, GFR, APTT, ANEU, ADIFF, MG, TSHR, FT4 #### [place] [address] .GFR Collected: 04/17/2025 5:15 AM Status: F Source: [facility] TYPE CODE TESTS RESULT OUT OF RANGE REFERENCE UNITS LAB eGFR(LOINC) Estimated Glomerular Filtration Rate 43 ml/min/1. 73sqm Result Comment: Stages of Chronic Kidney Disease (CKD) Stage Description eGFR(ml/min/1.73 sq.m.) CKD 1 Normal kidney function or >=90 normal kindney function with possible kidney damage (ex. Proteinuria) CKD 2 Kidney damage with mild loss 60-89 of kidney function CKD 3a Mild to moderate loss of kidney 45-59 function CKD 3b Moderate to severe loss of 30-44 of kindey function CKD 4 Severe loss of kidney function 15-29 CKD 5 Kidney failure <15 Note: (go live 2024) the eGFR calculation was updated to the 2020 CKD-EPI creatinine equation without a race factor to calculate the eGFR results. Performed By: #### CMP, CBC, GFR, APTT, ANEU, ADIFF, MG, TSHR, FT4 #### [place] [address] APTT Collected: 5 5:15 AM Status: F Source: [facility] TYPE CODE TESTS RESULT OUT OF RANGE REFERENCE UNITS LAB APTT0(LOINC) APTT 68.5 High 25.0-35.0 seconds Result Comment: For Heparin anticoagulation therapy, the recommended therapeutic range is: 54-77 seconds (APTT Correlation with Anti-Xa therapeutic range of 0.3-0.7 units/ml). PLEASE REFERENCE THE PHARMACY PROTOCOL FOR DOSING. Performed By: #### CMP, CBC, GFR, APTT, ANEU, ADIFF, MG, TSHR, FT4 #### [place] [id number] FT4 Collected: 5 5:15 AM Status: F Source: [facility] Order Comment: Ordered by Janine durand TYPE CODE TESTS RESULT OUT OF RANGE REFERENCE UNITS LAB FT4(LOINC) Free T4 0.88 Low 0.89-1.76 ng/dL Result Comment: Note - New Reference Range in effect 20 Performed By: #### CMP, CBC, GFR, APTT, ANEU, ADIFF, MG, TSHR, FT4 #### [place] [id number] CBC Collected: 5 6:38 AM Status: F Source: [facility] TYPE CODE TESTS RESULT OUT OF RANGE REFERENCE UNITS LAB WBC(LOINC) WBC 9.0 4.5-10.8 10 3/mcL LAB RBCCT(LOINC) RBC 3.29 Low 4.50-6.00 10 6/mcL LAB HGB(LOINC) Hgb 9.1 Low 13.0-17.5 G/dL LAB HCT(LOINC) Hct 27.9 Low 40.0-52.0 % LAB MCV(LOINC) MCV 84.7 81.0-100.0 fL LAB MCH(LOINC) MCH 27.8 27.0-33.0 pg LAB MCHC(LOINC) MCHC 32.8 32.0-36.0 G/dL LAB RDW(LOINC) RDW 18.8 High 11.5-15.5 % LAB PLT(LOINC) Platelet 158 150-450 10 3/mcL LAB MPV(LOINC) MPV 8.7 6.4-10.5 fL Performed By: #### CBC, GFR, CMP, MG, ADIFF, ANEU #### [address] [address] .AUTO DIFF Collected: 04/16/2025 6:38 AM Status: F Source: [facility] TYPE CODE TESTS RESULT OUT OF RANGE REFERENCE UNITS LAB JOSE(LOINC) Neutrophil % 81.5 High 50.0-75.0 % LAB LYM(LOINC) Lymphocyte % 4.8 Low 20.0-40.0 % LAB MON(LOINC) Monocyte % 8.3 2.0-13.0 % LAB EO(LOINC) Eosinophil % 5.3 0.0-6.0 % LAB BAS(LOINC) Basophil % 0.1 0.0-2.5 % LAB ABLYM(LOINC) Lymphocyte, Absolute 0.4 Low 0.9-4.3 10 3/mcL LAB JJ(LOINC) Monocyte, Absolute 0.7 0.1-1.4 10 3/mcL LAB AEOS(LOINC) Eosinophil, Absolute 0.5 0.0-0.7 10 3/mcL LAB ABAS(LOINC) Basophil, Absolute 0.0 0.0-0.3 10 3/mcL Performed By: #### CBC, GFR, CMP, MG, ADIFF, ANEU #### [address] [address] .NEUABS Collected: 6:38 AM Status: F Source: [facility] TYPE CODE TESTS RESULT OUT OF RANGE REFERENCE UNITS LAB ANEU(LOINC) Neutrophil, Absolute 7.3 2.3-8.1 10 3/mcL Performed By: #### CBC, GFR, CMP, MG, ADIFF, ANEU #### [facility] [address] [place] [address] MG Collected: 04/16/2025 6:38 AM Status: F Source: [facility] TYPE CODE TESTS RESULT OUT OF RANGE REFERENCE UNITS LAB MG(LOINC) Magnesium Lvl 1.8 1.6-2.4 mg/dL Performed By: #### CBC, GFR, CMP, MG, ADIFF, ANEU #### [address] [address] CMP Collected: 04/16/2025 6:38 AM Status: F Source: [facility] TYPE CODE TESTS RESULT OUT OF RANGE REFERENCE UNITS LAB GLU(LOINC) Glucose Level 144 High 82-115 mg/dL LAB NA(LOINC) Sodium Level 138 136-145 mEq/L LAB K(LOINC) Potassium Level 3.7 3.5-5.0 mEq/L LAB CL(LOINC) Chloride 91 Low 98-110 mEq/L LAB CO2(LOINC) CO2 38 High 22-32 mEq/L LAB EBAL(LOINC) Electrolyte Balance 9.0 4.0-15.0 mEq/L LAB BUN(LOINC) BUN 33.0 High 8.0-22.0 mg/dL LAB CRE(LOINC) Creatinine Lvl (s) 1.46 High 0.60-1.40 mg/dL Result Comment: Testing perf ormed on [employer] analyzer using enzymatic creatinine methodology. LAB BC(LOINC) BUN/Creatinine Ratio 22.6 High 10.0-22.0 ratio LAB CA(LOINC) Calcium Lvl 9.2 8.7-10.4 mg/dL LAB PROT(LOINC) Total Protein 5.8 5.7-8.2 G/dL LAB ALB(LOINC) Albumin Level 2.6 Low 3.2-4.8 G/dL LAB GLB(LOINC) Globulin 3.2 2.5-4.2 G/dL LAB AG(LOINC) A/G Ratio 0.8 Low 0.9-1.6 ratio LAB BILT(LOINC) Bili Total 0.50 0.20-1.20 mg/dL Result Comment: Use of this assay is not recommended for patients undergoing treatment with eltrombopag due to the potential for falsely elevated results. LAB AP(LOINC) Alk Phos 59 38-126 U/L LAB AST(LOINC) AST/SGOT 17 8-34 U/L LAB ALT(LOINC) ALT/SGPT 23 12-55 U/L Performed By: #### CBC, GFR, CMP, MG, ADIFF, ANEU #### [address] [address] .GFR Collected: 04/16/2025 6:38 AM Status: F Source: [facility] TYPE CODE TESTS RESULT OUT OF RANGE REFERENCE UNITS LAB eGFR(LOINC) Estimated Glomerular Filtration Rate 48 ml/min/1. 73sqm Result Comment: Stages of Chronic Kidney Disease (CKD) Stage Description eGFR(ml/min/1.73 sq.m.) CKD 1 Normal kidney function or >=90 normal kindney function with possible kidney damage (ex. Proteinuria) CKD 2 Kidney damage with mild loss 60-89 of kidney function CKD 3a Mild to moderate loss of kidney 45-59 function CKD 3b Moderate to severe loss of 30-44 of kindey function CKD 4 Severe loss of kidney function 15-29 CKD 5 Kidney failure <15 Note: (go live 2024) the eGFR calculation was updated to the 2020 CKD-EPI creatinine equation without a race factor to calculate the eGFR results. Performed By: #### CBC, GFR, CMP, MG, ADIFF, ANEU #### [place] [id number] APTT Collected: 6:38 AM Status: F Source: [facility] TYPE CODE TESTS RESULT OUT OF RANGE REFERENCE UNITS LAB APTT0(LOINC) APTT 63.1 High 25.0-35.0 seconds Result Comment: For Heparin anticoagulation therapy, the recommended therapeutic range is: 54-77 seconds (APTT Correlation with Anti-Xa therapeutic range of 0.3-0.7 units/ml). PLEASE REFERENCE THE PHARMACY PROTOCOL FOR DOSING. Performed By: #### APTT #### [address] [address] APTT Collected: 12:07 AM Status: F Source: [facility] TYPE CODE TESTS RESULT OUT OF RANGE REFERENCE UNITS LAB APTT0(LOINC) APTT 55.6 High 25.0-35.0 seconds Result Comment: For Heparin anticoagulation therapy, the recommended therapeutic range is: 54-77 seconds (APTT Correlation with Anti-Xa therapeutic range of 0.3-0.7 units/ml). PLEASE REFERENCE THE PHARMACY PROTOCOL FOR DOSING. Performed By: #### APTT #### [place] [address] LDH Collected: 6:13 PM Status: F Source: [facility] TYPE CODE TESTS RESULT OUT OF RANGE REFERENCE UNITS LAB LD(LOINC) LDH 216 120-246 U/L Performed By: #### HFP, LD # ### [place] [address] HFP Collected: 04/15/2025 6:13 PM Status: F Source: [facility] TYPE CODE TESTS RESULT OUT OF RANGE REFERENCE UNITS LAB PROT(LOINC) Total Protein 6.5 5.7-8.2 G/dL LAB ALB(LOINC) Albumin Level 2.9 Low 3.2-4.8 G/dL LAB GLB(LOINC) Globulin 3.6 2.5-4.2 G/dL LAB AG(LOINC) A/G Ratio 0.8 Low 0.9-1.6 ratio LAB BILT(LOINC) Bili Total 0.40 0.20-1.20 mg/dL Result Comment: Use of this assay is not recommended for patients undergoing treatment with eltrombopag due to the potential for falsely elevated results. LAB BILAD(LOINC) Bili Direct 0.2 0.0-0.4 mg/dL Result Comment: Use of this assay is not recommended for patients undergoing treatment with eltrombopag due to the potential for falsely elevated results. LAB BILI(LOINC) Bili Indirect 0.2 0.1-10.0 mg/dL LAB AP(LOINC) Alk Phos 65 38-126 U/L LAB AST(LOINC) AST/SGOT 23 8-34 U/L LAB ALT(LOINC) ALT/SGPT 29 12-55 U/L Performed By: #### HFP, LD # ### [address] [id number] XR CHEST 1 VIEW Observed: 04/15/2025 11:28 AM Status: F Source: [facility] ORIGINAL EXAMINATION: ONE XRAY VIEW OF THE CHEST04/15/2025 11:36 am Portable upright COMPARISON: Same day HISTORY: ORDERING SYSTEM PROVIDED HISTORY: Reason for Exam: s/p RIGHT thoracentesis, FINDINGS: Right pleural effusion has decreased. No pneumothorax is seen. No other significant change. IMPRESSION: No postprocedure pneumothorax. Interpreted by: Damion Foley MD Preliminary Report By: Damion Foley MD Electronically signed By Damion Foley MD Dictated Date: 04/15/2025 11:43:16 AM Prelim Date: 04/15/2025 11:43:46 AM Sign Date: 04/15/2025 11:43:46 AM Ordering Provider: OLAMIDE GONZALEZ PHBF Collected: 10:30 AM Status: F Source: [facility] TYPE CODE TESTS RESULT OUT OF RANGE REFERENCE UNITS LAB BFPHB(LOINC) pH BF Spec Type Pleural fluid Result Comment: The referenc e interval(s) and other method performance specifications have not been established for this body fluid. The test result must be integrated into the clinical content for interpretation. LAB PHB(LOINC) pH BF 7.4 Result Comment: right Performed By: #### PROBF, BF NE, PHBF, BFCT, GLUBF, LDBF #### [address] [address] GLUBF Collected: 10:30 AM Status: F Source: [facility] TYPE CODE TESTS RESULT OUT OF RANGE REFERENCE UNITS LAB BFGLU(LOINC) Glucose Body Fluid Spec Type Pleural fluid Result Comment: The referenc e interval(s) and other method performance specifications have not been established for this body fluid. The test result must be integrated into the clinical content for interpretation. LAB GLUB(LOINC) Glucose BF 191.0 mg/dL Performed By: #### PROBF, BF NE, PHBF, BFCT, GLUBF, LDBF #### [place] [address] LDBF Collected: 10:30 AM Status: F Source: [facility] TYPE CODE TESTS RESULT OUT OF RANGE REFERENCE UNITS LAB BFLD(LOINC) LDH Body Fluid Spec Type Pleural fluid Result Comment: The referenc e interval(s) and other method performance specifications have not been established for this body fluid. The test result must be integrated into the clinical content for interpretation. . LAB LDB(LOINC) LDH BF 137.0 U/L Performed By: #### PROBF, BF NE, PHBF, BFCT, GLUBF, LDBF #### [place] [address] PROBF Collected: 10:30 AM Status: F Source: [facility] TYPE CODE TESTS RESULT OUT OF RANGE REFERENCE UNITS LAB BFPROB(LOINC) Protein BF Type Pleural fluid Result Comment: The referenc e interval(s) and other method performance specifications have not been established for this body fluid. The test result must be integrated into the clinical content for interpretation. LAB PROB(LOINC) Protein BF <2.0 G/dL Performed By: #### PROBF, BF NE, PHBF, BFCT, GLUBF, LDBF #### [place] [address] BFCT Collected: 04/15/2025 10:30 AM Status: F Source: [facility] TYPE CODE TESTS RESULT OUT OF RANGE REFERENCE UNITS LAB BSORC(LOINC) Body Fluid Source Pleural fluid Result Comment: Reference ra nges have not been established for this body fluid. The test results must be integrated into the clinical context for interpretation. LAB BNBC(LOINC) Total Nucleated Cells 172 /mm3 LAB BCELL(LOINC) Cells Counted BF 100 LAB BNEU(LOINC) Neutrophil % BF 48 % LAB BLYM(LOINC) Lymphocyte % BF 47 % LAB BMON(LOINC) Mononuclear cell % BF 1 % LAB BMESO(LOINC) Mesothelial Cell % BF 4 % Performed By: #### PROBF, BF NE, PHBF, BFCT, GLUBF, LDBF #### [place] [address] BFPR Collected: 10:30 AM Status: F Source: [facility] Order Comment: Added by Disc humberto TYPE CODE TESTS RESULT OUT OF RANGE REFERENCE UNITS LAB BFPR(LOINC) Body Fluid Path Review Result Comment: Negative for malignant cells. (This evaluation is based on a screening review of one cytospin slide prepared primarily for differential cell count; if clinical index of suspicion is high, Cytology evaluation is recommended, as clinically indicated) Electronically signed by: BARTOLOME VIEIRA 04.17.2025 14:50 EDT Performed By: #### PROBF, BF NE, PHBF, BFCT, GLUBF, LDBF #### [place] [address] US THORACENTESIS RIGHT Observed: 025 10:30 AM Status: F Source: [facility] ORIGINAL PROCEDURE: ULTRASOUND GUIDED THORACENTESIS CLINICAL STATEMENT: Pleural effusion, shortness of breath LATERALITY: Right FLUID REMOVED: 1000 cc FLUID COLOR: Dinah serous DISPOSITION OF FLUID: Sent to lab CATHETER/NEEDLE: 5 Fr centesis catheter needle The procedure, risks, limitations, and alternatives were discussed. All questions were answered. Written informed consent obtained. Accompanying paperwork was verified for accuracy. Directed history and physical exam performed prior to the procedure. Medication reconciliation was performed by nursing personnel. Procedure was performed using a cap, sterile gloves, a sterile sheet, sterile probe cover and sterile gel, hand hygiene and hospital-approved cutaneous antisepsis. Ultrasound survey demonstrates pleural effusion. 2% lidocaine was administered at the puncture site for local anesthesia. The centesis catheter needle was advanced into the effusion under real-time sonographic guidance. After removal of the needle, the catheter was attached to the waste management system. The catheter was removed once no additional fluid could be removed and a dressing applied. Postprocedure images obtained. COMPLICATIONS: None EBL: None PATIENT CONDITION: Stable, unchanged. IMPRESSION: Successful ultrasound guided thoracentesis This procedure was performed by Olamide Gonzalez PA-C Interpreted by: Clemente Garcia MD Preliminary Report By: Olamide Gonzalez PA-C Electronically signed By Clemente Garcia MD Dictated Date: 04/15/2025 1:19:39 PM Prelim Date: 04/15/2025 1:20:18 PM Sign Date: 04/16/2025 5:19:34 PM Ordering Provider: GLORIA ALEGRE NON-ASSOCIATE DIRECTOR CYTOLOGY REPORT Observed: 2024 10:30 AM Status: F Source: [facility] . Pathology Reports Accession: Collected Date/Time: Received Date/Time: Pathologist: [id number] 04/15/2025 10:30 EDT 04/16/2025 08:56 EDT BARTOLOME VIEIRA MD Non-[place] Cytology Report CLINICAL INFORMATION: Pleural effusion DIAGNOSTIC CATEGORY: NEGATIVE FOR MALIGNANCY. SPECIMEN: Right pleural fluid GROSS DESCRIPTION: # of Blocks: 1 # of Monolayers: 1 Volume (ml) 950 Color: fresh cloudy red/orange fluid Verified by Pathology Report verified by [facility] Screened by: ANMOL GARCIA Electronically signed by BARTOLOME VIEIRA Sign-Out Date: 04/17/2025 14:51 Performing Lab: [facility], [address] [place] [address] Pathology Dept Disclaimer If ancillary studies were utilized, the following Laboratory Developed Test (LDT) disclaimer will apply: Under CLIA requirements, [facility] [facility] is qualified to perform high complexity testing. For all ancillary stains, positive and negative controls stain appropriately. Performance characteristics of immunohistochemical and chromogenic in-situ hybridization tests have been determined by [facility]. These tests are used for clinical purposes, They should not be regarded as investigational or for research. CBF Observed: 04/15/2025 8:52 AM Status: F Source: [facility] . MICRO - Microbiology PROCEDURE: Culture Body Fluid with Gram Stain [*1] SOURCE: Thoracentesis Fluid BODY SITE: COLLECTED DATE/TIME: 04/15/2025 08:52 EDT RECEIVED DATE/TIME: 04/15/2025 14:18 EDT START DATE/TIME: 04/15/2025 14:18 EDT FREE TEXT SOURCE: right FINAL REPORTS Final Report [] Verified Date/Time/Personnel: 04/20/2025 14:59 EDT Culture: No Growth at 5 days. PRELIMINARY REPORTS Preliminary Report [] Verified Date/Time/Personnel: 04/15/2025 14:59 EDT Culture has been received in lab and is no growth to date. Routine cultures are held for 5 days. STAINS GS [] Verified Date/Time/Personnel: 04/15/2025 15:51 EDT Sedimented 1+ Polymorphonuclear cells 1+ Mononuclear cells No organisms seen. Performing Locations *1: This test was performed at: [address], [id number]- , [place] CAF Observed: 04/15/2025 8:52 AM Status: P Source: [facility] . MICRO - Microbiology PROCEDURE: Acid Fast Bacilli Culture w Stain if Ind [*1] SOURCE: Thoracentesis Fluid BODY SITE: COLLECTED DATE/TIME: 04/15/2025 08:52 EDT RECEIVED DATE/TIME: 04/15/2025 14:18 EDT START DATE/TIME: 04/15/2025 14:18 EDT FREE TEXT SOURCE: STAINS AFS [] Verified Date/Time/Personnel: 04/16/2025 12:33 EDT Acid Fast Smear from Concentrated Specimen: Negative Performing Locations *1: This test was performed at: [address], [address] , [place] CFUNG Observed: 04/15/2025 8:52 AM Status: F Source: [facility] . MICRO - Microbiology PROCEDURE: Fungal Culture with Stain if Ind [*1] SOURCE: Thoracentesis Fluid BODY SITE: COLLECTED DATE/TIME: 04/15/2025 08:52 EDT RECEIVED DATE/TIME: 04/15/2025 14:18 EDT START DATE/TIME: 04/15/2025 14:18 EDT FREE TEXT SOURCE: FINAL REPORTS Final Report [] Verified Date/Time/Personnel: 05/19/2025 08:22 EDT No fungus isolated in 4 weeks. PRELIMINARY REPORTS Preliminary Report [] Verified Date/Time/Personnel: 04/21/2025 08:19 EDT No fungus isolated to date. Final report to follow. STAINS FUNSM [] Verified Date/Time/Personnel: 04/16/2025 12:32 EDT No fungal elements observed by calcofluor white stain. Performing Locations *1: This test was performed at: [facility], [address] [place] [address], [id number] , CBC Collected: 6:22 AM Status: F Source: [facility] MAIN TYPE CODE TESTS RESULT OUT OF RANGE REFERENCE UNITS LAB WBC(LOINC) WBC 9.4 4.5-10.8 10 3/mcL LAB RBCCT(LOINC) RBC 3.18 Low 4.50-6.00 10 6/mcL LAB HGB(LOINC) Hgb 8.6 Low 13.0-17.5 G/dL LAB HCT(LOINC) Hct 26.7 Low 40.0-52.0 % LAB MCV(LOINC) MCV 83.9 81.0-100.0 fL LAB MCH(LOINC) MCH 26.9 Low 27.0-33.0 pg LAB MCHC(LOINC) MCHC 32.1 32.0-36.0 G/dL LAB RDW(LOINC) RDW 17.9 High 11.5-15.5 % LAB PLT(LOINC) Platelet 169 150-450 10 3/mcL LAB MPV(LOINC) MPV 8.2 6.4-10.5 fL Performed By: #### ADIFF, CB C, GFR, ANEU, MG, BMP, PBNP #### [place] [address] .AUTO DIFF Collected: 04/15/2025 6:22 AM Status: F Source: [facility] MAIN TYPE CODE TESTS RESULT OUT OF RANGE REFERENCE UNITS LAB JOSE(LOINC) Neutrophil % 82.8 High 50.0-75.0 % LAB LYM(LOINC) Lymphocyte % 4.5 Low 20.0-40.0 % LAB MON(LOINC) Monocyte % 8.5 2.0-13.0 % LAB EO(LOINC) Eosinophil % 4.1 0.0-6.0 % LAB BAS(LOINC) Basophil % 0.1 0.0-2.5 % LAB ABLYM(LOINC) Lymphocyte, Absolute 0.4 Low 0.9-4.3 10 3/mcL LAB JJ(LOINC) Monocyte, Absolute 0.8 0.1-1.4 10 3/mcL LAB AEOS(LOINC) Eosinophil, Absolute 0.4 0.0-0.7 10 3/mcL LAB ABAS(LOINC) Basophil, Absolute 0.0 0.0-0.3 10 3/mcL Performed By: #### MIGUEL, CB C, GFR, ANEU, MG, BMP, PBNP #### [place] [address] .NEUABS Collected: 6:22 AM Status: F Source: [facility] MAIN TYPE CODE TESTS RESULT OUT OF RANGE REFERENCE UNITS LAB ANEU(LOINC) Neutrophil, Absolute 7.8 2.3-8.1 10 3/mcL Performed By: #### MIGUEL, CB C, GFR, ANEU, MG, BMP, PBNP #### [place] [address] PBNP Collected: 04/15/2025 6:22 AM Status: F Source: [facility] MAIN TYPE CODE TESTS RESULT OUT OF RANGE REFERENCE UNITS LAB PBNP(LOINC) N-Terminal proBNP 4360 High 0-1800 pg/mL Performed By: #### MIGUEL, CB C, GFR, ANEU, MG, BMP, PBNP #### [place] [address] BMP Collected: 04/15/2025 6:22 AM Status: F Source: [facility] MAIN TYPE CODE TESTS RESULT OUT OF RANGE REFERENCE UNITS LAB GLU(LOINC) Glucose Level 134 High 82-115 mg/dL LAB NA(LOINC) Sodium Level 140 136-145 mEq/L LAB K(LOINC) Potassium Level 3.8 3.5-5.0 mEq/L LAB CL(LOINC) Chloride 94 Low 98-110 mEq/L LAB CO2(LOINC) CO2 39 High 22-32 mEq/L LAB EBAL(LOINC) Electrolyte Balance 7.0 4.0-15.0 mEq/L LAB BUN(LOINC) BUN 44.0 High 8.0-22.0 mg/dL LAB CRE(LOINC) Creatinine Lvl (s) 1.43 High 0.60-1.40 mg/dL Result Comment: Testing perf ormed on [employer] analyzer using enzymatic creatinine methodology. LAB BC(LOINC) BUN/Creatinine Ratio 30.8 High 10.0-22.0 ratio LAB CA(LOINC) Calcium Lvl 8.7 8.7-10.4 mg/dL Performed By: #### ADIFF, CB C, GFR, ANEU, MG, BMP, PBNP #### [address] [address] MG Collected: 04/15/2025 6:22 AM Status: F Source: [facility] MAIN TYPE CODE TESTS RESULT OUT OF RANGE REFERENCE UNITS LAB MG(LOINC) Magnesium Lvl 1.8 1.6-2.4 mg/dL Performed By: #### ADIFF, CB C, GFR, ANEU, MG, BMP, PBNP #### [address] [address] .GFR Collected: 04/15/2025 6:22 AM Status: F Source: [facility] MAIN TYPE CODE TESTS RESULT OUT OF RANGE REFERENCE UNITS LAB eGFR(LOINC) Estimated Glomerular Filtration Rate 50 ml/min/1. 73sqm Result Comment: Stages of Chronic Kidney Disease (CKD) Stage Description eGFR(ml/min/1.73 sq.m.) CKD 1 Normal kidney function or >=90 normal kindney function with possible kidney damage (ex. Proteinuria) CKD 2 Kidney damage with mild loss 60-89 of kidney function CKD 3a Mild to moderate loss of kidney 45-59 function CKD 3b Moderate to severe loss of 30-44 of kindey function CKD 4 Severe loss of kidney function 15-29 CKD 5 Kidney failure <15 Note: (go live 2024) the eGFR calculation was updated to the 2020 CKD-EPI creatinine equation without a race factor to calculate the eGFR results. Performed By: #### MIGUEL, CB C, GFR, ANEU, MG, BMP, PBNP #### [place] [id number] XR CHEST 1 VIEW Observed: 04/15/2025 5:26 AM Status: F Source: [facility] MAIN ORIGINAL EXAMINATION: ONE XRAY VIEW OF THE CHEST 04/15/2025 6:49 am COMPARISON: Chest x-ray on 04/14/2025 HISTORY: ORDERING SYSTEM PROVIDED HISTORY: Reason for Exam: SOB FINDINGS: Left subclavian pacemaker is unchanged. The heart size is at the upper limits of normal. Mitral annulus calcification is present. There are small bilateral pleural effusions that are unchanged. Pulmonary edema pattern is unchanged. There is no visible pneumothorax. IMPRESSION: Unchanged pulmonary edema and small bilateral pleural effusions. No pneumothorax is visible. Interpreted by: Levi Dennis MD Preliminary Report By: Levi Dennis MD Electronically signed By Levi Dennis MD Dictated Date: 04/15/2025 7:20:27 AM Prelim Date: 04/15/2025 7:22:03 AM Sign Date: 04/15/2025 7:22:03 AM Ordering Provider: LGORIA ALEGRE APTT Collected: 12:14 AM Status: F Source: [facility] MAIN TYPE CODE TESTS RESULT OUT OF RANGE REFERENCE UNITS LAB APTT0(LOINC) APTT 55.0 High 25.0-35.0 seconds Result Comment: For Heparin anticoagulation therapy, the recommended therapeutic range is: 54-77 seconds (APTT Correlation with Anti-Xa therapeutic range of 0.3-0.7 units/ml). PLEASE REFERENCE THE PHARMACY PROTOCOL FOR DOSING. Performed By: #### APTT #### [place] [address] APTT Collected: 6:34 PM Status: F Source: [facility] MAIN TYPE CODE TESTS RESULT OUT OF RANGE REFERENCE UNITS LAB APTT0(LOINC) APTT 28.2 25.0-35.0 seconds Result Comment: For Heparin anticoagulation therapy, the recommended therapeutic range is: 54-77 seconds (APTT Correlation with Anti-Xa therapeutic range of 0.3-0.7 units/ml). PLEASE REFERENCE THE PHARMACY PROTOCOL FOR DOSING. Performed By: #### APTT, PRO #### [address] [address] PRO Collected: 04/14/2025 6:34 PM Status: F Source: [facility] MAIN TYPE CODE TESTS RESULT OUT OF RANGE REFERENCE UNITS LAB PT(LOINC) Protime 13.9 9.0-14.4 seconds Result Comment: Effective , Protime results may be affected by some antibiotics (i.e. Ciprofloxacin, Azithromycin, Bactrim) which may potentiate the action of oral anticoagulants, with further increases in Protime/INR. LAB INR(LOINC) PT International Ratio 1.2 ratio Result Comment: The [employer] (CHEST, 1992, 102:312S- 25S) recommended therapeutic range for oral anticoagulant therapy is: LOW RISK: Prophylaxis of venous thrombosis INR: 2.0-3.0 Treatment of pulmonary embolism 2.0-3.0 Prevention of systemic embolism 2.0-3.0 HIGH RISK: Mechanical prosthetic valves 2.5-3.5 Performed By: #### APTT, PRO #### [address] [address] CBC Collected: 7:56 AM Status: F Source: [facility] MAIN TYPE CODE TESTS RESULT OUT OF RANGE REFERENCE UNITS LAB WBC(LOINC) WBC 10.8 4.5-10.8 10 3/mcL LAB RBCCT(LOINC) RBC 3.41 Low 4.50-6.00 10 6/mcL LAB HGB(LOINC) Hgb 9.0 Low 13.0-17.5 G/dL LAB HCT(LOINC) Hct 29.0 Low 40.0-52.0 % LAB MCV(LOINC) MCV 84.9 81.0-100.0 fL LAB MCH(LOINC) MCH 26.3 Low 27.0-33.0 pg LAB MCHC(LOINC) MCHC 31.0 Low 32.0-36.0 G/dL LAB RDW(LOINC) RDW 18.4 High 11.5-15.5 % LAB PLT(LOINC) Platelet 165 150-450 10 3/mcL LAB MPV(LOINC) MPV 7.8 6.4-10.5 fL Performed By: #### ADIFF, AN EU, CBC, BMP, GFR #### [address] [address] .AUTO DIFF Collected: 04/14/2025 7:56 AM Status: F Source: [facility] MAIN TYPE CODE TESTS RESULT OUT OF RANGE REFERENCE UNITS LAB JOSE(LOINC) Neutrophil % 85.6 High 50.0-75.0 % LAB LYM(LOINC) Lymphocyte % 4.0 Low 20.0-40.0 % LAB MON(LOINC) Monocyte % 8.3 2.0-13.0 % LAB EO(LOINC) Eosinophil % 1.9 0.0-6.0 % LAB BAS(LOINC) Basophil % 0.2 0.0-2.5 % LAB ABLYM(LOINC) Lymphocyte, Absolute 0.4 Low 0.9-4.3 10 3/mcL LAB JJ(LOINC) Monocyte, Absolute 0.9 0.1-1.4 10 3/mcL LAB AEOS(LOINC) Eosinophil, Absolute 0.2 0.0-0.7 10 3/mcL LAB ABAS(LOINC) Basophil, Absolute 0.0 0.0-0.3 10 3/mcL Performed By: #### MIGUEL, AN EU, CBC, BMP, GFR #### [place] [address] .NEUABS Collected: 7:56 AM Status: F Source: [facility] MAIN TYPE CODE TESTS RESULT OUT OF RANGE REFERENCE UNITS LAB ANEU(LOINC) Neutrophil, Absolute 9.2 High 2.3-8.1 10 3/mcL Performed By: #### MIGUEL, AN EU, CBC, BMP, GFR #### [place] [address] BMP Collected: 04/14/2025 7:56 AM Status: F Source: [facility] MAIN TYPE CODE TESTS RESULT OUT OF RANGE REFERENCE UNITS LAB GLU(LOINC) Glucose Level 88 82-115 mg/dL LAB NA(LOINC) Sodium Level 143 136-145 mEq/L LAB K(LOINC) Potassium Level 4.3 3.5-5.0 mEq/L LAB CL(LOINC) Chloride 98 98-110 mEq/L LAB CO2(LOINC) CO2 40 Abnormal Alert 22-32 mEq/L LAB EBAL(LOINC) Electrolyte Balance 5.0 4.0-15.0 mEq/L LAB BUN(LOINC) BUN 47.0 High 8.0-22.0 mg/dL LAB CRE(LOINC) Creatinine Lvl (s) 1.45 High 0.60-1.40 mg/dL Result Comment: Testing perf ormed on [employer] analyzer using enzymatic creatinine methodology. LAB BC(LOINC) BUN/Creatinine Ratio 32.4 High 10.0-22.0 ratio LAB CA(LOINC) Calcium Lvl 8.6 Low 8.7-10.4 mg/dL Performed By: #### MIGUEL, AN EU, CBC, BMP, GFR #### [place] [address] .GFR Collected: 04/14/2025 7:56 AM Status: F Source: [facility] TYPE CODE TESTS RESULT OUT OF RANGE REFERENCE UNITS LAB eGFR(LOINC) Estimated Glomerular Filtration Rate 49 ml/min/1. 73sqm Result Comment: Stages of Chronic Kidney Disease (CKD) Stage Description eGFR(ml/min/1.73 sq.m.) CKD 1 Normal kidney function or >=90 normal kindney function with possible kidney damage (ex. Proteinuria) CKD 2 Kidney damage with mild loss 60-89 of kidney function CKD 3a Mild to moderate loss of kidney 45-59 function CKD 3b Moderate to severe loss of 30-44 of kindey function CKD 4 Severe loss of kidney function 15-29 CKD 5 Kidney failure <15 Note: (go live 2024) the eGFR calculation was updated to the 2020 CKD-EPI creatinine equation without a race factor to calculate the eGFR results. Performed By: #### ADIFF, AN EU, CBC, BMP, GFR #### [place] [address] EARL Observed: 04/14/2025 6:51 AM Status: F Source: [facility] . MICRO - Microbiology PROCEDURE: Legionella Urine Ag [*1] SOURCE: Urine BODY SITE: COLLECTED DATE/TIME: 04/14/2025 06:51 EDT RECEIVED DATE/TIME: 04/14/2025 07:31 EDT START DATE/TIME: 04/14/2025 07:31 EDT FREE TEXT SOURCE: FINAL REPORTS Final Report [] Verified Date/Time/Personnel: 04/14/2025 08:09 EDT Presumptive negative for L. pneumophila serogroup 1 antigen in urine, suggesting no recent or current infection. Legionnaire's disease cannot be ruled out since other serogroups and species may also cause disease. Performing Locations *1: This test was performed at: [address], [facility]- , [place] Observed: 04/14/2025 6:51 AM Status: F Source: [facility] . MICRO - Microbiology PROCEDURE: Streptococcus Pneumoniae Urine Antig [^1 *1] SOURCE: Urine, Clean Catch BODY SITE: COLLECTED DATE/TIME: 04/14/2025 06:51 EDT RECEIVED DATE/TIME: 04/14/2025 07:31 EDT START DATE/TIME: 04/14/2025 07:31 EDT FREE TEXT SOURCE: FINAL REPORTS Final Report [] Verified Date/Time/Personnel: 04/14/2025 08:08 EDT Presumptive negative for pneumococcal pneumonia, suggesting no current or recent pneumococcal infection. Infection due to Strep pneumoniae cannot be ruled out since the antigen present in the sample may be below the detection limit of the test. Interpretive Data ^1: Streptococcus Pneumoniae Urine Antig This test has not been evaluated on patients taking antibiotics for greater than 24 hours or on patients who have recently completed an antibiotic regimen. The accuracy of this test has not been proven in young children. Performing Locations *1: This test was performed at: [facility], [address] [place] [address], [id number] , [place] XR CHEST 1 VIEW Observed: 04/14/2025 5:30 AM Status: F Source: [facility] MAIN ORIGINAL EXAMINATION: ONE XRAY VIEW OF THE CHEST 04/14/2025 6:55 am COMPARISON: Chest x-ray on 04/13/2025 HISTORY: ORDERING SYSTEM PROVIDED HISTORY: Reason for Exam: Right hydropneumothorax FINDINGS: Left subclavian pacemaker is unchanged. The heart size is at the upper limits of normal. There is moderate pulmonary edema that is increased compared with chest x-ray from the prior day. Small left pleural effusion and moderate right pleural effusion are present. Small right apical pneumothorax is still present. IMPRESSION: 1. Moderate pulmonary edema. 2. Small left pleural effusion and moderate right pleural effusion. 3. Small right apical pneumothorax. Interpreted by: Levi Dennis MD Preliminary Report By: Levi Dennis MD Electronically signed By Levi Dennis MD Dictated Date: 04/14/2025 6:58:31 AM Prelim Date: 04/14/2025 7:00:29 AM Sign Date: 04/14/2025 7:00:29 AM Ordering Provider: COLLEEN LOPEZ Collected: 04/14/2025 1:06 AM Status: F Source: [facility] MAIN TYPE CODE TESTS RESULT OUT OF RANGE REFERENCE UNITS LAB HSTROP(LOINC) High Sensitivity Troponin I 160 High 0-54 ng/L Result Comment: High Sensitive Troponin I Reference Ranges: Female: 0-34 ng/L Male: 0-54 ng/L Testing performed on [employer] IM analyzer using direct chemiluminescent technology. Performed By: #### TROPHS ## ## [address] [address] TROPHS Collected: 04/13/2025 3:22 PM Status: F Source: [facility] MAIN TYPE CODE TESTS RESULT OUT OF RANGE REFERENCE UNITS LAB HSTROP(LOINC) High Sensitivity Troponin I 174 High 0-54 ng/L Result Comment: High Sensitive Troponin I Reference Ranges: Female: 0-34 ng/L Male: 0-54 ng/L Testing performed on [employer] IM analyzer using direct chemiluminescent technology. Performed By: #### TROPHS ## ## [address] [address] XR CHEST 1 VIEW Observed: 04/13/2025 2:29 PM Status: F Source: [facility] ORIGINAL EXAMINATION: ONE XRAY VIEW OF THE CHEST 04/13/2025 2:42 pm COMPARISON: CT chest 04/12/2025. HISTORY: ORDERING SYSTEM PROVIDED HISTORY: Reason for Exam: Right PTX FINDINGS: Left subclavian dual lead pacemaker is noted with leads within the right atrium and right ventricle. Median sternotomy wires are noted. Mediastinal clips are also noted. Cardiomediastinal silhouette is within normal limits. Atherosclerotic calcifications are noted within the aorta. There is a moderate right and small left pleural effusion with adjacent hazy airspace disease. A right perihilar/suprahilar consolidation is noted. A right-sided pneumothorax is noted with approximately 6 mm of apical pleural separation. These findings are not significantly changed when compared to prior CT from 04/12/2025. Osseous structures appear intact. IMPRESSION: Right-sided hydropneumothorax is likely not significantly changed with approximately 6 mm of apical pleural separation. No significant change in right perihilar/suprahilar consolidation concerning for pneumonia. Stable small left pleural effusion with adjacent hazy airspace disease. Interpreted by: Bartolome Zaldivar Preliminary Report By: Bartolome Zaldivar Electronically signed By Bartolome Zaldivar Dictated Date: 04/13/2025 2:55:34 PM Prelim Date: 04/13/2025 2:58:50 PM Sign Date: 04/13/2025 2:58:50 PM Ordering Provider: COLLEEN DOE CBL Observed: 04/13/2025 7:20 AM Status: F Source: [facility] . MICRO - Microbiology PROCEDURE: Blood Culture (bacterial) [*1] SOURCE: Blood BODY SITE: COLLECTED DATE/TIME: 04/13/2025 07:20 EDT RECEIVED DATE/TIME: 04/13/2025 08:01 EDT START DATE/TIME: 04/13/2025 08:01 EDT FREE TEXT SOURCE: peds bottle FINAL REPORTS Final Report [] Verified Date/Time/Personnel: 04/18/2025 08:59 EDT Blood Culture: No Growth at 5 days. PRELIMINARY REPORTS Preliminary Report [] Verified Date/Time/Personnel: 04/13/2025 08:59 EDT Culture has been received in lab and is no growth to date. Routine cultures are held for 5 days. Performing Locations *1: This test was performed at: [address], [address] [place] [address] CBL Observed: 04/13/2025 7:20 AM Status: F Source: [facility] . MICRO - Microbiology PROCEDURE: Blood Culture (bacterial) [*1] SOURCE: Blood BODY SITE: COLLECTED DATE/TIME: 04/13/2025 07:20 EDT RECEIVED DATE/TIME: 04/13/2025 08:00 EDT START DATE/TIME: 04/13/2025 08:00 EDT FREE TEXT SOURCE: peds bottle FINAL REPORTS Final Report [] Verified Date/Time/Personnel: 04/18/2025 08:59 EDT Blood Culture: No Growth at 5 days. PRELIMINARY REPORTS Preliminary Report [] Verified Date/Time/Personnel: 04/13/2025 08:59 EDT Culture has been received in lab and is no growth to date. Routine cultures are held for 5 days. Performing Locations *1: This test was performed at: [address], [id number] [place] [address] LAC Collected: 04/13/2025 7:20 AM Status: F Source: [facility] MAIN TYPE CODE TESTS RESULT OUT OF RANGE REFERENCE UNITS LAB LAC(LOINC) Lactic Acid Lvl 1.2 0.5-2.2 mmol/L Performed By: #### MG, GFR, CMP, ADIFF, CBC, TROPHS, ANEU, LAC, MYCO, PRO, PBNP #### [address] [address] PRO Collected: 04/13/2025 7:20 AM Status: F Source: [facility] MAIN TYPE CODE TESTS RESULT OUT OF RANGE REFERENCE UNITS LAB PT(LOINC) Protime 14.5 High 9.0-14.4 seconds Result Comment: Effective , Protime results may be affected by some antibiotics (i.e. Ciprofloxacin, Azithromycin, Bactrim) which may potentiate the action of oral anticoagulants, with further increases in Protime/INR. LAB INR(LOINC) PT International Ratio 1.3 ratio Result Comment: The [employer] (CHEST, 1992, 102:312S- 25S) recommended therapeutic range for oral anticoagulant therapy is: LOW RISK: Prophylaxis of venous thrombosis INR: 2.0-3.0 Treatment of pulmonary embolism 2.0-3.0 Prevention of systemic embolism 2.0-3.0 HIGH RISK: Mechanical prosthetic valves 2.5-3.5 Performed By: #### MG, GFR, CMP, ADIFF, CBC, TROPHS, ANEU, LAC, MYCO, PRO, PBNP #### [address] [address] TROPHS Collected: 04/13/2025 7:20 AM Status: F Source: [facility] MAIN TYPE CODE TESTS RESULT OUT OF RANGE REFERENCE UNITS LAB HSTROP(LOINC) High Sensitivity Troponin I 141 High 0-54 ng/L Result Comment: High Sensitive Troponin I Reference Ranges: Female: 0-34 ng/L Male: 0-54 ng/L Testing performed on [employer] analyzer using direct chemiluminescent technology. Performed By: #### MG, GFR, CMP, ADIFF, CBC, TROPHS, ANEU, LAC, MYCO, PRO, PBNP #### [address] [address] PBNP Collected: 04/13/2025 7:20 AM Status: F Source: [facility] MAIN TYPE CODE TESTS RESULT OUT OF RANGE REFERENCE UNITS LAB PBNP(LOINC) N-Terminal proBNP 6315 High 0-1800 pg/mL Performed By: #### MG, GFR, CMP, ADIFF, CBC, TROPHS, ANEU, LAC, MYCO, PRO, PBNP #### [address] [address] MG Collected: 04/13/2025 7:20 AM Status: F Source: [facility] MAIN TYPE CODE TESTS RESULT OUT OF RANGE REFERENCE UNITS LAB MG(LOINC) Magnesium Lvl 2.2 1.6-2.4 mg/dL Performed By: #### MG, GFR, CMP, ADIFF, CBC, TROPHS, ANEU, LAC, MYCO, PRO, PBNP #### [address] [address] CMP Collected: 04/13/2025 7:20 AM Status: F Source: [facility] MAIN TYPE CODE TESTS RESULT OUT OF RANGE REFERENCE UNITS LAB GLU(LOINC) Glucose Level 192 High 82-115 mg/dL LAB NA(LOINC) Sodium Level 143 136-145 mEq/L LAB K(LOINC) Potassium Level 4.5 3.5-5.0 mEq/L LAB CL(LOINC) Chloride 100 98-110 mEq/L LAB CO2(LOINC) CO2 39 High 22-32 mEq/L LAB EBAL(LOINC) Electrolyte Balance 4.0 4.0-15.0 mEq/L LAB BUN(LOINC) BUN 49.0 High 8.0-22.0 mg/dL LAB CRE(LOINC) Creatinine Lvl (s) 1.47 High 0.60-1.40 mg/dL Result Comment: Testing perf ormed on [employer] analyzer using enzymatic creatinine methodology. LAB BC(LOINC) BUN/Creatinine Ratio 33.3 High 10.0-22.0 ratio LAB CA(LOINC) Calcium Lvl 8.8 8.7-10.4 mg/dL LAB PROT(LOINC) Total Protein 6.3 5.7-8.2 G/dL LAB ALB(LOINC) Albumin Level 2.9 Low 3.2-4.8 G/dL LAB GLB(LOINC) Globulin 3.4 2.5-4.2 G/dL LAB AG(LOINC) A/G Ratio 0.9 0.9-1.6 ratio LAB BILT(LOINC) Bili Total 0.50 0.20-1.20 mg/dL Result Comment: Use of this assay is not recommended for patients undergoing treatment with eltrombopag due to the potential for falsely elevated results. LAB AP(LOINC) Alk Phos 58 38-126 U/L LAB AST(LOINC) AST/SGOT 26 8-34 U/L LAB ALT(LOINC) ALT/SGPT 32 12-55 U/L Performed By: #### MG, GFR, CMP, ADIFF, CBC, TROPHS, ANEU, LAC, MYCO, PRO, PBNP #### [address] [address] .GFR Collected: 04/13/2025 7:20 AM Status: F Source: [facility] MAIN TYPE CODE TESTS RESULT OUT OF RANGE REFERENCE UNITS LAB eGFR(LOINC) Estimated Glomerular Filtration Rate 48 ml/min/1. 73sqm Result Comment: Stages of Chronic Kidney Disease (CKD) Stage Description eGFR(ml/min/1.73 sq.m.) CKD 1 Normal kidney function or >=90 normal kindney function with possible kidney damage (ex. Proteinuria) CKD 2 Kidney damage with mild loss 60-89 of kidney function CKD 3a Mild to moderate loss of kidney 45-59 function CKD 3b Moderate to severe loss of 30-44 of kindey function CKD 4 Severe loss of kidney function 15-29 CKD 5 Kidney failure <15 Note: (go live 2024) the eGFR calculation was updated to the 2020 CKD-EPI creatinine equation without a race factor to calculate the eGFR results. Performed By: #### MG, GFR, CMP, ADIFF, CBC, TROPHS, ANEU, LAC, MYCO, PRO, PBNP #### [address] [address] CBC Collected: 7:20 AM Status: F Source: [facility] MAIN TYPE CODE TESTS RESULT OUT OF RANGE REFERENCE UNITS LAB WBC(LOINC) WBC 11.6 High 4.5-10.8 10 3/mcL LAB RBCCT(LOINC) RBC 3.52 Low 4.50-6.00 10 6/mcL LAB HGB(LOINC) Hgb 9.4 Low 13.0-17.5 G/dL LAB HCT(LOINC) Hct 29.7 Low 40.0-52.0 % LAB MCV(LOINC) MCV 84.3 81.0-100.0 fL LAB MCH(LOINC) MCH 26.6 Low 27.0-33.0 pg LAB MCHC(LOINC) MCHC 31.6 Low 32.0-36.0 G/dL LAB RDW(LOINC) RDW 17.7 High 11.5-15.5 % LAB PLT(LOINC) Platelet 201 150-450 10 3/mcL LAB MPV(LOINC) MPV 8.1 6.4-10.5 fL Performed By: #### MG, GFR, CMP, ADIFF, CBC, TROPHS, ANEU, LAC, MYCO, PRO, PBNP #### [address] [address] .AUTO DIFF Collected: 04/13/2025 7:20 AM Status: F Source: [facility] MAIN TYPE CODE TESTS RESULT OUT OF RANGE REFERENCE UNITS LAB JOSE(LOINC) Neutrophil % 90.6 High 50.0-75.0 % LAB LYM(LOINC) Lymphocyte % 3.0 Low 20.0-40.0 % LAB MON(LOINC) Monocyte % 6.3 2.0-13.0 % LAB EO(LOINC) Eosinophil % 0.1 0.0-6.0 % LAB BAS(LOINC) Basophil % 0.0 0.0-2.5 % LAB ABLYM(LOINC) Lymphocyte, Absolute 0.3 Low 0.9-4.3 10 3/mcL LAB JJ(LOINC) Monocyte, Absolute 0.7 0.1-1.4 10 3/mcL LAB AEOS(LOINC) Eosinophil, Absolute 0.0 0.0-0.7 10 3/mcL LAB ABAS(LOINC) Basophil, Absolute 0.0 0.0-0.3 10 3/mcL Performed By: #### MG, GFR, CMP, ADIFF, CBC, TROPHS, ANEU, LAC, MYCO, PRO, PBNP #### [address] [address] .NEUABS Collected: 7:20 AM Status: F Source: [facility] MAIN TYPE CODE TESTS RESULT OUT OF RANGE REFERENCE UNITS LAB ANEU(LOINC) Neutrophil, Absolute 10.5 High 2.3-8.1 10 3/mcL Performed By: #### MG, GFR, CMP, ADIFF, CBC, TROPHS, ANEU, LAC, MYCO, PRO, PBNP #### [address] [address] MYCO Collected: 04/13/2025 7:20 AM Status: F Source: [facility] MAIN TYPE CODE TESTS RESULT OUT OF RANGE REFERENCE UNITS LAB AMYCM(LOINC) Mycoplasma IgM Negative Result Comment: INTERPRETATI ON OF MYCOPLASMA IgM: Negative: IgM to M. pneumoniae Absent, or at levels below the assay limit of detection. Positive: IgM to M. pneumoniae Present. Invalid: Test results are invalid due to invalid internal control. Assay was performed in duplicate. Repeat testing is suggested if clinically indicated. LAB AMYCG(LOINC) Mycoplasma IgG Positive Result Comment: INTERPRETATI ON OF MYCOPLASMA IgG BY EIA: Negative: No detectable M. pneumoniae IgG antibody. Positive: Mycoplasma pneumoniae IgG antibody Detected. Equivocal: Equivocal for IgG antibodies to Mycoplasma pneumoniae. Suggest repeat testing in 10-14 days. Performed By: #### MG, GFR, CMP, ADIFF, CBC, TROPHS, ANEU, LAC, MYCO, PRO, PBNP #### [address] [address] ALLERGIES No Allergies Records Found ENCOUNTERS ADMIT/DISCHARGE ACCOUNT NUMBER ADMITTING ENCOUNTER CLASS LOCATION SOURCE 04/13/2025/ 5 [id number] HALLIE STRATTON, DR DAVID Ovalle Inpatient Encounter ABuilding:[place] 4SRoom: [address]Bed: A [facility] MAIN PAYERS ENCOUNTER GUARANTOR PAYER SUBSCRIBER SOURCE 04/13/2025 PEDRO SANTAMARIA: [id number] [place] [email or web address] () Primary Insurance:MEDICARE PART A INSCOPolicy Number: [id number] Date:[id number] Name:MMail Code AG [address], [place] [address]XR: PEDRO SANTAMARIA: [id number] [place], [place] [address]Axe: () () [facility] 04/13/2025 Secondary Insurance:MEDICARE PART B INSCOPolicy Number: [id number] Date:[id number] Name:Edenilson Martines [id number] [place] [address]AV: [facility]: [id number] [place], [place] [address]Qdf: () () [facility] 04/13/2025 Tertiary Insurance: FOR LIFE INSCOPolicy Number: [id number] Date:[id number] Name:BOB [place] [address] [address]NT: [facility]: [id number] [place], [place] [address]Dft: () () [facility]
--- OUTSIDE RECORDS SUMMARY | 2025-04-13 05:27 | XMS RPT_ITS ---
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 Name Role Phone KERMIT STRATTON, ABBI Strauss Consulting Unavailable HALLIE STRATTON, DR DAVID Ovalle Admitting Unavailable GLORIA ALEGRE MD Attending Unavailable DR TONIO FAJARDO DO Primary Care Unavailab le PROBLEMS DATE TYPE CONDITION / CODE ATTENDING STATUS SAMMI RCE 04/13/2025 Unknown Other specified pleural conditions / J94.8(ICD-10) SIS STRATTON, [facility] 04/13/2025 Unknown Pneumonia, unspe cified organism / J18.9(ICD-10) SIS STRATTON, [facility] MAIN 04/13/2025 Unknown Unspecified atri al fibrillation / I48.91(ICD-10) SIS STRATTON, [facility] MAIN 04/13/2025 Unknown Presence of card iac pacemaker / Z95.0(ICD-10) SIS STRATTON, [facility] MAIN 04/13/2025 Unknown Peripheral vascu lar disease, unspecified / I73.9(ICD-10) SIS STRATTON, [facility] 04/13/2025 Unknown Benign prostatic hyperplasia without lower urinary tract symptoms / N40.0(ICD-10) SIS STRATTON, [facility] 04/13/2025 Unknown Chronic kidney disease, unspecified / N18.9(ICD-10) SIS STRATTON, [facility] 04/13/2025 Unknown Hyperlipidemia, unspecified / E78.5(ICD-10) SIS STRATTON, [facility] 04/13/2025 Unknown Type 2 diabetes mellitus without complications / E11.9(ICD-10) SIS STRATTON, [facility] 04/13/2025 Unknown Polyneuropathy, unspecified / G62.9(ICD-10) SIS STRATTON, [facility] 04/13/2025 Unknown Anemia, unspecif ied / D64.9(ICD-10) SIS STRATTON, [facility] 04/13/2025 Unknown Essential (prima ry) hypertension / I10(ICD-10) SIS STRATTON, [facility] 04/13/2025 Unknown 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) SIS STRATTON, [facility] 04/13/2025 Unknown Unspecified multani tolic (congestive) heart failure / I50.30(ICD-10) SIS STRATTON, [facility] 04/13/2025 Unknown Chronic obstruct leah pulmonary disease, unspecified / J44.9(ICD-10) SIS STRATTON, [facility] 04/13/2025 Unknown Other specified abnormal findings of blood chemistry / R79.89(ICD-10) SIS STRATTON, [facility] 04/13/2025 Final Diagnosis (Discharge) Pneumothorax, unspecified / J93.9(ICD-10) SIS STRATTON, [facility] 04/13/2025 Final Diagnosis (Discharge) Sepsis, unspecified organism / A41.9(ICD-10) SIS STRATTON, [facility] 04/13/2025 Final Diagnosis (Discharge) Acute and chronic respiratory failure with hypoxia / J96.21(ICD-10) SIS STRATTON, [facility] 04/13/2025 Final Diagnosis (Discharge) Chronic diastolic (congestive) heart failure / I50.32(ICD-10) SIS STRATTON, [facility] 04/13/2025 Final Diagnosis (Discharge) Chronic obstructive pulmonary disease with (acute) lower respiratory infection / J44.0(ICD-10) SIS STRATTON, [facility] 04/13/2025 Final Diagnosis (Discharge) Chronic respiratory failure with hypoxia / J96.11(ICD-10) SIS STRATTON, [facility] 04/13/2025 Final Diagnosis (Discharge) Pleural effusion in other conditions classified elsewhere / J91.8(ICD-10) ISS STRATTON, [facility] 04/13/2025 Final Diagnosis (Discharge) Chronic kidney disease, stage 3 unspecified / N18.30(ICD-10) SIS STRATTON [facility] 04/13/2025 Final Diagnosis (Discharge) 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) SIS STRATTON [facility] 04/13/2025 Final Diagnosis (Discharge) Type 2 diabetes mellitus with diabetic peripheral angiopathy without gangrene / E11.51(ICD-10) SIS STRATTON [facility] 04/13/2025 Final Diagnosis (Discharge) 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 PLEASE REFERENCE THE PHARMACY PROTOCOL FOR DOSING. Performed By: #### APTT #### [address] [address] XR CHEST 1 VIEW Observed: 04/17/2025 5:25 AM Status: F Source: [facility] ORIGINAL EXAMINATION: ONE XRAY VIEW OF [...] CBC Collected: 5:15 AM Status: F Source: [facility] MAIN TYPE CODE TESTS RESULT OUT OF [...] APTT, ANEU, ADIFF, MG, TSHR, FT4 #### [place] [address] .AUTO DIFF Collected: 04/17/2025 5:15 AM Status: F Source: [facility] MAIN TYPE CODE TESTS RESULT OUT OF [...] APTT, ANEU, ADIFF, MG, TSHR, FT4 #### [address] [address] .NEUABS Collected: 5:15 AM Status: F Source: [facility] MAIN TYPE CODE TESTS RESULT OUT OF RANGE REFERENCE UNITS LAB ANEU(LOINC) Neutrophil, Absolute 7.1 2.3-8.1 10 3/mcL Performed By: #### CMP, CBC, GFR, APTT, ANEU, ADIFF, MG, TSHR, FT4 #### [place] [address] MG Collected: 04/17/2025 5:15 AM Status: F Source: [facility] MAIN TYPE CODE TESTS RESULT OUT OF RANGE REFERENCE UNITS LAB MG(LOINC) Magnesium Lvl 1.8 1.6-2.4 mg/dL Performed By: #### CMP, CBC, GFR, APTT, ANEU, ADIFF, MG, TSHR, FT4 #### [place] [address] TSHR Collected: 5:15 AM Status: F Source: [facility] MAIN TYPE CODE TESTS RESULT OUT OF RANGE REFERENCE UNITS LAB TSH(LOINC) TSH 4.806 High 0.550-4.780 mIU/mL Performed By: #### CMP, CBC, GFR, APTT, ANEU, ADIFF, MG, TSHR, FT4 #### [place] [address] CMP Collected: 04/17/2025 5:15 AM Status: F Source: [facility] MAIN Order Comment: vrb- called bella santana [...] mg/dL Result Comment: Testing perf ormed on [employer] CH analyzer using enzymatic creatinine methodology. LAB [...] APTT, ANEU, ADIFF, MG, TSHR, FT4 #### [place] [address] .GFR Collected: 04/17/2025 5:15 AM Status: F Source: [facility] MAIN TYPE CODE TESTS RESULT OUT OF [...] APTT, ANEU, ADIFF, MG, TSHR, FT4 #### [place] [address] APTT Collected: 5 5:15 AM Status: F Source: [facility] MAIN TYPE CODE TESTS RESULT OUT OF RANGE REFERENCE UNITS LAB APTT0(LOINC) APTT 68.5 High 25.0-35.0 seconds Result Comment: For Heparin anticoagulation therapy, the recommended therapeutic range is: 54-77 seconds (APTT Correlation with Anti-Xa therapeutic range of 0.3-0.7 units/ml). PLEASE REFERENCE THE PHARMACY PROTOCOL FOR DOSING. Performed By: #### CMP, CBC, GFR, APTT, ANEU, ADIFF, MG, TSHR, FT4 #### [place] [id number] FT4 Collected: 5 5:15 AM Status: F Source: [facility] MAIN Order Comment: Ordered by Janine durand TYPE CODE TESTS RESULT OUT OF RANGE REFERENCE UNITS LAB FT4(LOINC) Free T4 0.88 Low 0.89-1.76 ng/dL Result Comment: Note - New Reference Range in effect 20 Performed By: #### CMP, CBC, GFR, APTT, ANEU, ADIFF, MG, TSHR, FT4 #### [place] [id number] CBC Collected: 5 6:38 AM Status: F Source: [facility] MAIN TYPE CODE TESTS RESULT OUT OF [...] CBC, GFR, CMP, MG, ADIFF, ANEU #### [address] [address] .AUTO DIFF Collected: 04/16/2025 6:38 AM Status: F Source: [facility] MAIN TYPE CODE TESTS RESULT OUT OF [...] CBC, GFR, CMP, MG, ADIFF, ANEU #### [address] [address] .NEUABS Collected: 6:38 AM Status: F Source: [facility] MAIN TYPE CODE TESTS RESULT OUT OF RANGE REFERENCE UNITS LAB ANEU(LOINC) Neutrophil, Absolute 7.3 2.3-8.1 10 3/mcL Performed By: #### CBC, GFR, CMP, MG, ADIFF, ANEU #### [facility] [address] [place] [address] MG Collected: 04/16/2025 6:38 AM Status: F Source: [facility] MAIN TYPE CODE TESTS RESULT OUT OF RANGE REFERENCE UNITS LAB MG(LOINC) Magnesium Lvl 1.8 1.6-2.4 mg/dL Performed By: #### CBC, GFR, CMP, MG, ADIFF, ANEU #### [address] [address] CMP Collected: 04/16/2025 6:38 AM Status: F Source: [facility] MAIN TYPE CODE TESTS RESULT OUT OF [...] mg/dL Result Comment: Testing perf ormed on [employer] analyzer using enzymatic creatinine methodology. LAB BC(LOINC) [...] CBC, GFR, CMP, MG, ADIFF, ANEU #### [address] [address] .GFR Collected: 04/16/2025 6:38 AM Status: F Source: [facility] MAIN TYPE CODE TESTS RESULT OUT OF [...] CBC, GFR, CMP, MG, ADIFF, ANEU #### [place] [id number] APTT Collected: 6:38 AM Status: F Source: [facility] MAIN TYPE CODE TESTS RESULT OUT OF RANGE REFERENCE UNITS LAB APTT0(LOINC) APTT 63.1 High 25.0-35.0 seconds Result Comment: For Heparin anticoagulation therapy, the recommended therapeutic range is: 54-77 seconds (APTT Correlation with Anti-Xa therapeutic range of 0.3-0.7 units/ml). PLEASE REFERENCE THE PHARMACY PROTOCOL FOR DOSING. Performed By: #### APTT #### [address] [address] APTT Collected: 12:07 AM Status: F Source: [facility] MAIN TYPE CODE TESTS RESULT OUT OF RANGE REFERENCE UNITS LAB APTT0(LOINC) APTT 55.6 High 25.0-35.0 seconds Result Comment: For Heparin anticoagulation therapy, the recommended therapeutic range is: 54-77 seconds (APTT Correlation with Anti-Xa therapeutic range of 0.3-0.7 units/ml). PLEASE REFERENCE THE PHARMACY PROTOCOL FOR DOSING. Performed By: #### APTT #### [place] [address] LDH Collected: 6:13 PM Status: F Source: [facility] MAIN TYPE CODE TESTS RESULT OUT OF RANGE REFERENCE UNITS LAB LD(LOINC) LDH 216 120-246 U/L Performed By: #### HFP, LD # ### [place] [address] HFP Collected: 04/15/2025 6:13 PM Status: F Source: [facility] MAIN TYPE CODE TESTS RESULT OUT OF [...] Performed By: #### HFP, LD # ### [address] [address] XR CHEST 1 VIEW Observed: 04/15/2025 11:28 AM Status: F Source: [facility] MAIN ORIGINAL EXAMINATION: ONE XRAY VIEW OF [...] PHBF Collected: 10:30 AM Status: F Source: [facility] MAIN TYPE CODE TESTS RESULT OUT OF RANGE REFERENCE UNITS LAB BFPHB(LOINC) pH BF Spec Type Pleural fluid Result Comment: The referenc e interval(s) and other method performance specifications have not been established for this body fluid. The test result must be integrated into the clinical content for interpretation. LAB PHB(LOINC) pH BF 7.4 Result Comment: right Performed By: #### PROBF, BF IA, PHBF, BFCT, GLUBF, LDBF #### [address] [address] GLUBF Collected: 10:30 AM Status: F Source: [facility] MAIN TYPE CODE TESTS RESULT OUT OF RANGE REFERENCE UNITS LAB BFGLU(LOINC) Glucose Body Fluid Spec Type Pleural fluid Result Comment: The referenc e interval(s) and other method performance specifications have not been established for this body fluid. The test result must be integrated into the clinical content for interpretation. LAB GLUB(LOINC) Glucose BF 191.0 mg/dL Performed By: #### PROBF, BF IA, PHBF, BFCT, GLUBF, LDBF #### [place] [address] LDBF Collected: 10:30 AM Status: F Source: [facility] MAIN TYPE CODE TESTS RESULT OUT OF RANGE REFERENCE UNITS LAB BFLD(LOINC) LDH Body Fluid Spec Type Pleural fluid Result Comment: The referenc e interval(s) and other method performance specifications have not been established for this body fluid. The test result must be integrated into the clinical content for interpretation. . LAB LDB(LOINC) LDH BF 137.0 U/L Performed By: #### PROBF, BF IA, PHBF, BFCT, GLUBF, LDBF #### [place] [address] PROBF Collected: 10:30 AM Status: F Source: [facility] MAIN TYPE CODE TESTS RESULT OUT OF RANGE REFERENCE UNITS LAB BFPROB(LOINC) Protein BF Type Pleural fluid Result Comment: The referenc e interval(s) and other method performance specifications have not been established for this body fluid. The test result must be integrated into the clinical content for interpretation. LAB PROB(LOINC) Protein BF <2.0 G/dL Performed By: #### PROBF, BF IA, PHBF, BFCT, GLUBF, LDBF #### [place] [address] BFCT Collected: 04/15/2025 10:30 AM Status: F Source: [facility] MAIN TYPE CODE TESTS RESULT OUT OF [...] 4 % Performed By: #### PROBF, BF IA, PHBF, BFCT, GLUBF, LDBF #### [place] [address] BFPR Collected: 10:30 AM Status: F Source: [facility] MAIN Order Comment: Added by Disc humberto TYPE CODE TESTS RESULT OUT OF RANGE REFERENCE UNITS LAB BFPR(LOINC) Body Fluid Path Review Result Comment: Negative for malignant cells. (This evaluation is based on a screening review of one cytospin slide prepared primarily for differential cell count; if clinical index of suspicion is high, Cytology evaluation is recommended, as clinically indicated) Electronically signed by: BARTOOLME VIEIRA 04.17.2025 14:50 EDT Performed By: #### PROBF, BF IA, PHBF, BFCT, GLUBF, LDBF #### [place] [address] US THORACENTESIS RIGHT Observed: 025 10:30 AM Status: F Source: [facility] MAIN ORIGINAL PROCEDURE: ULTRASOUND GUIDED THORACENTESIS CLINICAL [...] 04/16/2025 5:19:34 PM Ordering Provider: GLORIA ALEGRE NON-PUTTER IN CYTOLOGY REPORT Observed: 2024 10:30 AM Status: F Source: [facility] . Pathology Reports Accession: Collected Date/Time: Received Date/Time: Pathologist: [id number] 04/15/2025 10:30 EDT 04/16/2025 08:56 EDT BARTOLOME VIEIRA MD Non-Car Varnisher Cytology Report CLINICAL INFORMATION: Pleural effusion DIAGNOSTIC CATEGORY: NEGATIVE FOR MALIGNANCY. SPECIMEN: Right pleural fluid GROSS DESCRIPTION: # of Blocks: 1 # of Monolayers: 1 Volume (ml) 950 Color: fresh cloudy red/orange fluid Verified by Pathology Report verified by [facility] Screened by: ANMOL GARCIA Electronically signed by BARTOLOME VIEIRA Sign-Out Date: 04/17/2025 14:51 Performing Lab: [facility], [address] [place] [address] Pathology Dept Disclaimer If ancillary studies were utilized, the following Laboratory Developed Test (LDT) disclaimer will apply: Under CLIA requirements, [facility] is qualified to perform high complexity testing. For all ancillary stains, positive and negative controls stain appropriately. Performance characteristics of immunohistochemical and chromogenic in-situ hybridization tests have been determined by [facility]. These tests are used for clinical purposes, They should not be regarded as investigational or for research. CBF Observed: 04/15/2025 8:52 AM Status: F Source: [facility] . MICRO - Microbiology PROCEDURE: Culture [...] Locations *1: This test was performed at: [address], [id number]- , [place] Observed: 04/15/2025 8:52 AM Status: P Source: [facility] . MICRO - Microbiology PROCEDURE: Acid Fast Bacilli Culture w Stain if Ind [*1] SOURCE: Thoracentesis Fluid BODY SITE: COLLECTED DATE/TIME: 04/15/2025 08:52 EDT RECEIVED DATE/TIME: 04/15/2025 14:18 EDT START DATE/TIME: 04/15/2025 14:18 EDT FREE TEXT SOURCE: STAINS AFS [] Verified Date/Time/Personnel: 04/16/2025 12:33 EDT Acid Fast Smear from Concentrated Specimen: Negative Performing Locations *1: This test was performed at: [address], [address]- , [place] CFUNG Observed: 04/15/2025 8:52 AM Status: F Source: [facility] . MICRO - Microbiology PROCEDURE: Fungal [...] test was performed at: [facility], [address] [place] [address], [address] , CBC Collected: 6:22 AM Status: F Source: [facility] MAIN TYPE CODE TESTS RESULT OUT OF [...] C, GFR, ANEU, MG, BMP, PBNP #### [place] [address] .AUTO DIFF Collected: 04/15/2025 6:22 AM Status: F Source: [facility] MAIN TYPE CODE TESTS RESULT OUT OF [...] C, GFR, ANEU, MG, BMP, PBNP #### [place] [address] .NEUABS Collected: 6:22 AM Status: F Source: [facility] MAIN TYPE CODE TESTS RESULT OUT OF RANGE REFERENCE UNITS LAB ANEU(LOINC) Neutrophil, Absolute 7.8 2.3-8.1 10 3/mcL Performed By: #### MIGUEL, CB C, GFR, ANEU, MG, BMP, PBNP #### [place] [address] PBNP Collected: 04/15/2025 6:22 AM Status: F Source: [facility] MAIN TYPE CODE TESTS RESULT OUT OF RANGE REFERENCE UNITS LAB PBNP(LOINC) N-Terminal proBNP 4360 High 0-1800 pg/mL Performed By: #### MIGUEL, CB C, GFR, ANEU, MG, BMP, PBNP #### [place] [address] BMP Collected: 04/15/2025 6:22 AM Status: F Source: [facility] MAIN TYPE CODE TESTS RESULT OUT OF [...] mg/dL Result Comment: Testing perf ormed on [employer] analyzer using enzymatic creatinine methodology. LAB BC(LOINC) BUN/Creatinine Ratio 30.8 High 10.0-22.0 ratio LAB CA(LOINC) Calcium Lvl 8.7 8.7-10.4 mg/dL Performed By: #### ADIFF, CB C, GFR, ANEU, MG, BMP, PBNP #### [address] [address] MG Collected: 04/15/2025 6:22 AM Status: F Source: [facility] MAIN TYPE CODE TESTS RESULT OUT OF RANGE REFERENCE UNITS LAB MG(LOINC) Magnesium Lvl 1.8 1.6-2.4 mg/dL Performed By: #### ADIFF, CB C, GFR, ANEU, MG, BMP, PBNP #### [address] [address] .GFR Collected: 04/15/2025 6:22 AM Status: F Source: [facility] MAIN TYPE CODE TESTS RESULT OUT OF [...] C, GFR, ANEU, MG, BMP, PBNP #### [place] [id number] XR CHEST 1 VIEW Observed: 04/15/2025 5:26 AM Status: F Source: [facility] MAIN ORIGINAL EXAMINATION: ONE XRAY VIEW OF [...] Sign Date: 04/15/2025 7:22:03 AM Ordering Provider: GLORIA ALEGRE APTT Collected: 12:14 AM Status: F Source: [facility] MAIN TYPE CODE TESTS RESULT OUT OF RANGE REFERENCE UNITS LAB APTT0(LOINC) APTT 55.0 High 25.0-35.0 seconds Result Comment: For Heparin anticoagulation therapy, the recommended therapeutic range is: 54-77 seconds (APTT Correlation with Anti-Xa therapeutic range of 0.3-0.7 units/ml). PLEASE REFERENCE THE PHARMACY PROTOCOL FOR DOSING. Performed By: #### APTT #### [place] [address] APTT Collected: 6:34 PM Status: F Source: [facility] MAIN TYPE CODE TESTS RESULT OUT OF RANGE REFERENCE UNITS LAB APTT0(LOINC) APTT 28.2 25.0-35.0 seconds Result Comment: For Heparin anticoagulation therapy, the recommended therapeutic range is: 54-77 seconds (APTT Correlation with Anti-Xa therapeutic range of 0.3-0.7 units/ml). PLEASE REFERENCE THE PHARMACY PROTOCOL FOR DOSING. Performed By: #### APTT, PRO #### [address] [address] PRO Collected: 04/14/2025 6:34 PM Status: F Source: [facility] MAIN TYPE CODE TESTS RESULT OUT OF RANGE REFERENCE UNITS LAB PT(LOINC) Protime 13.9 9.0-14.4 seconds Result Comment: Effective , Protime results may be affected by some antibiotics (i.e. Ciprofloxacin, Azithromycin, Bactrim) which may potentiate the action of oral anticoagulants, with further increases in Protime/INR. LAB INR(LOINC) PT International Ratio 1.2 ratio Result Comment: The [place] [employer] (CHEST, 1992, 102:312S- 25S) recommended therapeutic range for oral anticoagulant therapy is: LOW RISK: Prophylaxis of venous thrombosis INR: 2.0-3.0 Treatment of pulmonary embolism 2.0-3.0 Prevention of systemic embolism 2.0-3.0 HIGH RISK: Mechanical prosthetic valves 2.5-3.5 Performed By: #### APTT, PRO #### [address] [address] CBC Collected: 7:56 AM Status: F Source: [facility] MAIN TYPE CODE TESTS RESULT OUT OF [...] ADIFF, AN EU, CBC, BMP, GFR #### [address] [address] .AUTO DIFF Collected: 04/14/2025 7:56 AM Status: F Source: [facility] MAIN TYPE CODE TESTS RESULT OUT OF [...] MIGUEL, AN EU, CBC, BMP, GFR #### [place] [address] .NEUABS Collected: 7:56 AM Status: F Source: [facility] MAIN TYPE CODE TESTS RESULT OUT OF RANGE REFERENCE UNITS LAB ANEU(LOINC) Neutrophil, Absolute 9.2 High 2.3-8.1 10 3/mcL Performed By: #### MIGUEL, AN EU, CBC, BMP, GFR #### [place] [address] BMP Collected: 04/14/2025 7:56 AM Status: F Source: [facility] MAIN TYPE CODE TESTS RESULT OUT OF [...] mg/dL Result Comment: Testing perf ormed on [employer] analyzer using enzymatic creatinine methodology. LAB BC(LOINC) BUN/Creatinine Ratio 32.4 High 10.0-22.0 ratio LAB CA(LOINC) Calcium Lvl 8.6 Low 8.7-10.4 mg/dL Performed By: #### MIGUEL, AN EU, CBC, BMP, GFR #### [place] [address] .GFR Collected: 04/14/2025 7:56 AM Status: F Source: [facility] TYPE CODE TESTS RESULT OUT OF [...] ADIFF, AN EU, CBC, BMP, GFR #### [place] [address] EARL Observed: 04/14/2025 6:51 AM Status: F Source: [facility] . MICRO - Microbiology PROCEDURE: Legionella [...] Locations *1: This test was performed at: [address], [facility]- , [place] Observed: 04/14/2025 6:51 AM Status: F Source: [facility] . MICRO - Microbiology PROCEDURE: Streptococcus [...] Locations *1: This test was performed at: [facility], [address] [place] [address], [id number]- , [place] XR CHEST 1 VIEW Observed: 04/14/2025 5:30 AM Status: F Source: [facility] MAIN ORIGINAL EXAMINATION: ONE XRAY VIEW OF [...] Collected: 04/14/2025 1:06 AM Status: F Source: [facility] MAIN TYPE CODE TESTS RESULT OUT OF RANGE REFERENCE UNITS LAB HSTROP(LOINC) High Sensitivity Troponin I 160 High 0-54 ng/L Result Comment: High Sensitive Troponin I Reference Ranges: Female: 0-34 ng/L Male: 0-54 ng/L Testing performed on [employer] IM analyzer using direct chemiluminescent technology. Performed By: #### TROPHS ## ## [address] [address] TROPHS Collected: 04/13/2025 3:22 PM Status: F Source: [facility] MAIN TYPE CODE TESTS RESULT OUT OF RANGE REFERENCE UNITS LAB HSTROP(LOINC) High Sensitivity Troponin I 174 High 0-54 ng/L Result Comment: High Sensitive Troponin I Reference Ranges: Female: 0-34 ng/L Male: 0-54 ng/L Testing performed on [employer] IM analyzer using direct chemiluminescent technology. Performed By: #### TROPHS ## ## [address] [address] XR CHEST 1 VIEW Observed: 04/13/2025 2:29 PM Status: F Source: [facility] ORIGINAL EXAMINATION: ONE XRAY VIEW OF [...] Observed: 04/13/2025 7:20 AM Status: F Source: [facility] . MICRO - Microbiology PROCEDURE: Blood [...] Locations *1: This test was performed at: [address], [address] [place] [address] CBL Observed: 04/13/2025 7:20 AM Status: F Source: [facility] . MICRO - Microbiology PROCEDURE: Blood [...] Locations *1: This test was performed at: [address], [id number] [place] [address] LAC Collected: 04/13/2025 7:20 AM Status: F Source: [facility] MAIN TYPE CODE TESTS RESULT OUT OF RANGE REFERENCE UNITS LAB LAC(LOINC) Lactic Acid Lvl 1.2 0.5-2.2 mmol/L Performed By: #### MG, GFR, CMP, ADIFF, CBC, TROPHS, ANEU, LAC, MYCO, PRO, PBNP #### [address] [address] PRO Collected: 04/13/2025 7:20 AM Status: F Source: [facility] MAIN TYPE CODE TESTS RESULT OUT OF RANGE REFERENCE UNITS LAB PT(LOINC) Protime 14.5 High 9.0-14.4 seconds Result Comment: Effective , Protime results may be affected by some antibiotics (i.e. Ciprofloxacin, Azithromycin, Bactrim) which may potentiate the action of oral anticoagulants, with further increases in Protime/INR. LAB INR(LOINC) PT International Ratio 1.3 ratio Result Comment: The [place] [employer] (CHEST, 1992, 102:312S- 25S) recommended therapeutic range for oral anticoagulant therapy is: LOW RISK: Prophylaxis of venous thrombosis INR: 2.0-3.0 Treatment of pulmonary embolism 2.0-3.0 Prevention of systemic embolism 2.0-3.0 HIGH RISK: Mechanical prosthetic valves 2.5-3.5 Performed By: #### MG, GFR, CMP, ADIFF, CBC, TROPHS, ANEU, LAC, MYCO, PRO, PBNP #### [address] [address] TROPHS Collected: 04/13/2025 7:20 AM Status: F Source: [facility] MAIN TYPE CODE TESTS RESULT OUT OF RANGE REFERENCE UNITS LAB HSTROP(LOINC) High Sensitivity Troponin I 141 High 0-54 ng/L Result Comment: High Sensitive Troponin I Reference Ranges: Female: 0-34 ng/L Male: 0-54 ng/L Testing performed on ADCentricity analyzer using direct chemiluminescent technology. Performed By: #### MG, GFR, CMP, ADIFF, CBC, TROPHS, ANEU, LAC, MYCO, PRO, PBNP #### [address] [address] PBNP Collected: 04/13/2025 7:20 AM Status: F Source: [facility] MAIN TYPE CODE TESTS RESULT OUT OF RANGE REFERENCE UNITS LAB PBNP(LOINC) N-Terminal proBNP 6315 High 0-1800 pg/mL Performed By: #### MG, GFR, CMP, ADIFF, CBC, TROPHS, ANEU, LAC, MYCO, PRO, PBNP #### [address] [address] MG Collected: 04/13/2025 7:20 AM Status: F Source: [facility] MAIN TYPE CODE TESTS RESULT OUT OF RANGE REFERENCE UNITS LAB MG(LOINC) Magnesium Lvl 2.2 1.6-2.4 mg/dL Performed By: #### MG, GFR, CMP, ADIFF, CBC, TROPHS, ANEU, LAC, MYCO, PRO, PBNP #### [address] [address] CMP Collected: 04/13/2025 7:20 AM Status: F Source: [facility] MAIN TYPE CODE TESTS RESULT OUT OF [...] mg/dL Result Comment: Testing perf ormed on Speak[employer] analyzer using enzymatic creatinine methodology. LAB BC(LOINC) [...] TROPHS, ANEU, LAC, MYCO, PRO, PBNP #### [address] [address] .GFR Collected: 04/13/2025 7:20 AM Status: F Source: [facility] MAIN TYPE CODE TESTS RESULT OUT OF [...] TROPHS, ANEU, LAC, MYCO, PRO, PBNP #### [address] [address] CBC Collected: 7:20 AM Status: F Source: [facility] MAIN TYPE CODE TESTS RESULT OUT OF [...] TROPHS, ANEU, LAC, MYCO, PRO, PBNP #### [address] [address] .AUTO DIFF Collected: 04/13/2025 7:20 AM Status: F Source: [facility] MAIN TYPE CODE TESTS RESULT OUT OF [...] TROPHS, ANEU, LAC, MYCO, PRO, PBNP #### [address] [address] .NEUABS Collected: 7:20 AM Status: F Source: [facility] MAIN TYPE CODE TESTS RESULT OUT OF RANGE REFERENCE UNITS LAB ANEU(LOINC) Neutrophil, Absolute 10.5 High 2.3-8.1 10 3/mcL Performed By: #### MG, GFR, CMP, ADIFF, CBC, TROPHS, ANEU, LAC, MYCO, PRO, PBNP #### [address] [address] MYCO Collected: 04/13/2025 7:20 AM Status: F Source: [facility] MAIN TYPE CODE TESTS RESULT OUT OF [...] TROPHS, ANEU, LAC, MYCO, PRO, PBNP #### [address] [address] ALLERGIES No Allergies Records Found ENCOUNTERS ADMIT/DISCHARGE ACCOUNT NUMBER ADMITTING ENCOUNTER CLASS LOCATION SOURCE 04/13/2025/ 5 [id number] HALLIE STRAT[place], DR DAVID Ovalle Inpatient Encounter ABuilding:[place] 4SRoom: 4667Bed: A [facility] MAIN PAYERS ENCOUNTER GUARANTOR PAYER SUBSCRIBER SOURCE 04/13/2025 PEDRO SANTAMARIA: [id number] [place] [email or web address]. [facility]: () Primary Insurance:MEDICARE PART A INSCOPolicy Number: [id number] Date:[id number] Name:MMail Code AG [address], [place] [address]VZ: PEDRO SANTAMARIA: [id number] [place], [place] [address]Nii: () () [facility] 04/13/2025 Secondary Insurance:MEDICARE PART B INSCOPolicy Number: [id number] Date:[id number] Name:Edenilson Martines [id number] [address]NA: [facility] [id number] [place], [place] [address]Ola: () () [facility] 04/13/2025 Tertiary Insurance: FOR LIFE INSCOPolicy Number: [id number] Date:[id number] Name:BOB Martines [address] [address]RZ: [facility]: [id number] [place], [place] [address]Ksb: () () [facility]
--- NOTE | 2025-05-19 13:06 | US_ITS ---
PROCEDURE: THORACENTESIS W US 05/19/2025 REASON FOR EXAM: PE Pleural effusion TECHNIQUE: THORACENTESIS W US COMPARISON: 05/12/2025 FINDINGS: After obtaining a signed informed consent, patient was placed in the upright position and an area in the posterior right thorax was marked under ultrasound guidance. The skin was prepped and draped under usual sterile fashion with local anesthesia achieved by 2% lidocaine. A 5 Italian catheter was then advanced into the fluid collection and a proximally 570 cc of cloudy sheldon colored fluid obtained. The patient tolerated the procedure well with no immediate postprocedural complications. He was discharged from the department in stable condition. US/Thoracentesis W US IMPRESSION: Successful ultrasound-guided thoracentesis of the right thorax. Reading Location: [place] [id number]
--- NOTE | 2025-05-19 13:06 | US_ITS ---
PROCEDURE: THORACENTESIS W US 05/19/2025 REASON FOR EXAM: PE Pleural effusion TECHNIQUE: THORACENTESIS W US COMPARISON: 05/12/2025 FINDINGS: After obtaining a signed informed consent, patient was placed in the upright position and an area in the posterior right thorax was marked under ultrasound guidance. The skin was prepped and draped under usual sterile fashion with local anesthesia achieved by 2% lidocaine. A 5 Greek catheter was then advanced into the fluid collection and a proximally 570 cc of cloudy sheldon colored fluid obtained. The patient tolerated the procedure well with no immediate postprocedural complications. He was discharged from the department in stable condition. US/Thoracentesis W US IMPRESSION: Successful ultrasound-guided thoracentesis of the right thorax. Reading Location: [place] [id number]
--- NOTE | 2025-05-19 13:47 | RAD_ITS ---
PROCEDURE: CHEST INSP/EXP 2 VIEW 05/19/2025 REASON FOR EXAM: Inspiration and expiration Status post thoracentesis on the right TECHNIQUE: Procedure Code: RADCXRINSPEXP Modality: DX Procedure: CHEST INSP/EXP 2 VIEW AP chest two views inspiration and expiration COMPARISON: 05/14/2025 FINDINGS: Status post right-sided thoracentesis with improvement in aeration of the right lung. Stable cardiomegaly with prominence of pulmonary vasculatures and ground-glass opacification throughout bilateral lungs. There is residual small right-sided pleural effusion as well as for small left-sided pleural effusion. Dual-chamber left-sided pacemaker remains stable. RAD/Chest Insp/Exp 2 View IMPRESSION: Interval improvement in aeration of the right lung with a small residual right- sided pleural effusion. No pneumothorax demonstrated. Mild congestive changes as well as stable small left-sided pleural effusion. Reading Location: [place] [address]
--- NOTE | 2025-05-19 13:47 | RAD_ITS ---
PROCEDURE: CHEST INSP/EXP 2 VIEW 05/19/2025 REASON FOR EXAM: Inspiration and expiration Status post thoracentesis on the right TECHNIQUE: Procedure Code: RADCXRINSPEXP Modality: DX Procedure: CHEST INSP/EXP 2 VIEW AP chest two views inspiration and expiration COMPARISON: 05/14/2025 FINDINGS: Status post right-sided thoracentesis with improvement in aeration of the right lung. Stable cardiomegaly with prominence of pulmonary vasculatures and ground-glass opacification throughout bilateral lungs. There is residual small right-sided pleural effusion as well as for small left-sided pleural effusion. Dual-chamber left-sided pacemaker remains stable. RAD/Chest Insp/Exp 2 View IMPRESSION: Interval improvement in aeration of the right lung with a small residual right- sided pleural effusion. No pneumothorax demonstrated. Mild congestive changes as well as stable small left-sided pleural effusion. Reading Location: [place] [id number]
[2025-05-19] MEDS: Lidocaine 2% (20 ml mdv) 20 ML Vial INFILT (14:05)
[2025-05-19 14:51] VITALS: BP 161/63; PULSE 92; RESP 18; O2SAT 98
[2025-05-19 14:53] VITALS: BP 146/61; BP 167/66; PULSE 91; PULSE 92; RESP 18; O2SAT 100; O2SAT 98
== END | disposition home or self-care (01) ==
PROVIDERS: PCP Family Medicine; Referring Provider Family Medicine Geriatric Medicine; Visit Provider Family Medicine Geriatric Medicine
DX: J90 Pleural effusion, not elsewhere classified (principal)
CPT/HCPCS: 32555; 71046